=== PATIENT | female | born 1955 | race Caucasian/White ===

== ENCOUNTER 2017-08-10 13:20 | Emergency (ER) | payer OTHER ==
--- OUTSIDE RECORDS SUMMARY | 2017-08-10 13:22 | XMS REPORT | Clinical Summary ---
:1955 Author Organization [facility] Address [address] [place] [address] Care Team Providers Name Role Phone Asked, No Pcp Primary Care Provider Unavailable Allergies Active Allergy Reactions Severity Noted Date Comments Codeine 07/30/2016 Metoclopramide Hcl 09/23/2016 Current Medications Prescription Sig. Disp. Refills Start Date End Date Status lisinopril Take 40 mg by Active (PRINIVIL,ZESTRIL) 40 mouth. mg tablet metoprolol tartrate Take 100 mg by Active (LOPRESSOR) 100 mg mouth. tablet amLODIPine (NORVASC) Take 10 mg by Active 10 mg tablet mouth. LORAZepam (ATIVAN) 2 Take 2 mg by Active MG tablet mouth. ARIPiprazole Take 5 mg by Active (ABILIFY) 5 MG tablet mouth. sertraline (ZOLOFT) 200 mg every Active 25 MG tablet morning. triamterene-hydrochlo Take 1 tablet by Active rothiazid mouth daily. (MAXZIDE-25) 37.5-25 mg per tablet DESCOVY 200-25 mg 5 08/09/2016 Active tablet ISENTRESS 400 mg TK 1 T PO BID 3 08/07/2016 Active tablet esomeprazole (NexIUM) Take 40 mg by Active 40 MG capsule mouth 2 (two) times a day. clobetasol (TEMOVATE) Apply topically Active 0.05 % ointment 2 (two) times a day. ondansetron ODT Take 1 tablet (4 20 tablet 0 09/16/2016 10/06/2016 (ZOFRAN ODT) 4 MG mg total) by disintegrating tablet mouth every 8 (eight) hours as needed for nausea or vomiting for up to 20 days. 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 Encounters Date Type Specialty Care Team Description 11/03/2016 Office Visit Orthopedic Surgery Ora Ngo Orthopedic aftercare NEO Whyte (Primary Dx) 11/03/2016 Orders Only Orthopedic Surgery Mervat, Orthopedic aftercare ( Primary Dx); Alaina Osteoarthritis of left shoulder, unspecified osteoarthritis type 11/03/2016 Orders Only Orthopedic Surgery Ora Ngo Orthopedic ellencare NEO Whyte (Primary Dx) 10/28/2016 Orders Only Orthopedic Surgery Richard Grissom MD 10/19/2016 - Hospital Encounter Orthopedic Surgery [place], 10/21/2016 Austin Wilson MD 10/19/2016 Procedure Pass Orthopedic Surgery 10/19/2016 Surgery Orthopedic Surgery [place], REV. TOTAL SHOULDER Austin Wilson MD ARTHROPLASTY, REMOVAL OF HARDWARE 10/07/2016 Orders Only Orthopedic Surgery Twan Darling, Primary MA osteoarthritis of left shoulder (Primary Dx) 09/24/2016 Telephone Orthopedic Surgery Alaina Crowell 09/23/2016 [facility] TIMBO 09/16/2016 Orders Only Orthopedic Surgery Mervat, Morganarr 08/20/2016 Office Visit Orthopedic Surgery [place], Unstable reverse Austin Wilson MD total shoulder arthroplasty, subsequent encounter (Primary Dx) 08/19/2016 Documentation Orthopedic Surgery Ora Ngo PA-C 08/09/2016 Lab Lab Austin Bowles MD 08/09/2016 Hospital Encounter Radiology [place], Left shoulder pain, Austin Wilson MD unspecified chronicity 08/09/2016 Hospital Encounter Radiology [place] Chronic left shoulder Austin Wilson MD pain 08/09/2016 Hospital Encounter Radiology [place], Left shoulder painAustin MD unspecified chronicity 08/09/2016 Ancillary Orders Orthopedic Surgery [place] Left shoulder painAustin MD unspecified chronicity after 08/09/2016 Family History Medical History Relation Name Comments Hypertension Father Kidney disease Father Relation Name Status Comments Father Mother Social History Tobacco Use Types Packs/Day Years Used Date Current Every Day Smoker 0.5 Smokeless Tobacco: Never Used Tobacco Cessation: Ready to Quit: Yes Alcohol Use Drinks/Week oz/Week Comments Yes rare Sex Assigned at Date Recorded Not on file Last Filed Vital Signs Vital Sign Reading Time Taken Blood Pressure 135/81 10/21/2016 3:40 PM CDT Pulse 78 11/03/2016 2:58 PM CDT Temperature 37.3 C (99.1 F) 10/21/2016 3:40 PM CDT Respiratory Rate 18 10/21/2016 3:40 PM CDT Oxygen Saturation 93% 10/21/2016 3:40 PM CDT Inhaled Oxygen Concentration - - Weight 92.5 kg (204 lb) 10/19/2016 8:32 AM CDT Height 162.6 cm (5' 4") 10/19/2016 8:32 AM CDT Body Mass Index 35.02 10/19/2016 8:32 AM CDT Plan of Treatment Health Maintenance Due Date Last Done Comments PAP SMEAR 01/22/1977 COLONOSCOPY 01/22/2006 MAMMOGRAM 01/22/2006 ZOSTER VACCINE 2016 INFLUENZA VACCINE 12/21/2016 Implants Implanted Type Area Centrifugal Casting Machine Tender Device Expiration Model / Identifier Date Serial / Lot Versa-Dial/Comp Ti Std Taper Used W/25mm Glenoid Basplate - [id number] N/ A: N/A [employer] 01/22/2026 [id number] / Implanted: Qty: 1 on 10/19/2016 by Austin Bowles MD IMPLANT / DEVICES [id number] 41mm Comprehensive Reverse Shoulder Glenosphere Ba - [id number] N/A: N/A [employer] 11/21/2023 [id number] / Implanted: Qty: 1 on 10/19/2016 by Austin Bowles MD IMPLANT / DEVICES [id number] Arcom Xl 44-41 Std +3 Humeral Brg - [id number] [id number] Left: [employer] 07/20 XL [id number] / Implanted: Qty: 1 on 10/19/2016 by Austin Bowles MD IMPLANT Shoulder / DEVICES [id number] Humeral Tray With Locking Ring +5 Left: [employer] 03/31/2026 [id number] / Implanted: Qty: 1 on 10/19/2016 by Austin Bowles MD Shoulder / [id number] Procedures Procedure Name Priority Date/Time Associated Diagnosis Comments MA AN ELECTIVE Routine 10/19/2016 11:11 AM ENDOTRACHEAL AIRWAY CDT Procedure Note - Beth Stevenson CRNA - 10/19/2016 11:09 AM CDT Airway Performed by: BETH STEVENSON Authorized by: KENNY FAY Location: OR Urgency: Elective Difficult Airway: No Preoxygenated with 100% O2: Yes C-spine Precautions Maintained Throughout: Yes Mask Ventilation: Easy mask Final Airway Type: Endotracheal airway Final Endotracheal Airway: ETT Cuffed: Yes Technique Used: Direct laryngoscopy Insertion Site: Oral Blade Type: Pryor Laryngoscope Blade/Videolaryngoscope Blade Size: 2 ETT Size (mm): 7.0 Cuff at minimum occlusion pressure: Yes Measured from: Lips ETT to Lips (cm): 22 Placement Verified by: CO2 detection, direct visualization and equal breath sounds Laryngoscopic view: Grade I - full view of glottis Rapid Sequence Induction (RSI): No Modified RSI: No Number of Attempts at Approach: 1 Lips, oropharynx in original condition REV. TOTAL SHOULDER 10/19/2016 9:45 AM CDT SHOULDER ARTHRITIS ARTHROPLASTY, REMOVAL OF M19.012, RETAINED HARDWARE HARDWARE T84.60XA Special Needs EST 2HRS, INTERSCALENE BLOCK WITH PAIN PUMP, MODIFIED BEACH CHAIR POSITION, SHOULDER ULTRASLING/CRYOCUFF, ARTHREX UNIVERSE II after 08/09/2016 Results XR Shoulder 2+ Vw Left (11/03/2016 3:02 PM) Specimen Performing Laboratory [address] [address] Narrative Two views (true AP, axillary views) of the left shoulder are obtained and reviewed today.There is no evidence of dislocation , fracture or other complication. The prosthesis appears to be in good position. Estimated GFR (10/21/2016 4:00 AM)Only the most recent of3 resultswithin the time period is included. Component Value Ref Range GFR Non Af Amer 46 (A) mL/min/1.73 m2 GFR Af Amer 55 (A) mL/min/1.73 m2 Comment: Chronic kidney disease: <60 mL/min/1.73m2 Kidney failure: <15 mL/min/1.73m2 The estimated GFR is calculated from the IDMS-traceable Modification of Diet in Renal Disease Equation. The accuracy of the calculation is poor when the creatinine is normal. Calculated values >90 mL/min/1.73m2 are not reported. This equation has not been validated in children (<18 years), women, the elderly (>70 years), or ethnic groups other than Caucasians and Americans. Specimen Performing Laboratory Plasma specimen [facility] DEPARTMENT OF PATHOLOGY AND [facility] [address] [place] [address] CBC with platelet and differential (10/21/2016 4:00 AM)Only the most recent of3 resultswithin the time period is included. Component Value Ref Range WBC 9.35 4.50 - 11.00 k/uL RBC 3.87 (L) 4.20 - 5.50 m/uL HGB 9.9 (L) 12.0 - 16.0 g/dL HCT 34.1 (L) 37.0 - 47.0 % MCV 88.1 82.0 - 100.0 fL MCH 25.6 (L) 27.0 - 34.0 pg MCHC 29.0 (L) 31.0 - 37.0 g/dL RDW - SD 53.4 37.0 - 55.0 fL MPV 9.9 8.8 - 13.2 fL Platelet count 166 150 - 400 k/uL Nucleated RBC 0.00 /100 WBC Neutrophils 82.2 (H) 39.0 - 69.0 % Lymphocytes 9.4 (L) 25.0 - 45.0 % Monocytes 6.8 0.0 - 10.0 % Eosinophils 0.9 0.0 - 5.0 % Basophils 0.2 0.0 - 1.0 % Immature granulocytes 0.5Comment: "Immature granulocytes" 0.0 - 1.0 % (promyelocytes, myelocytes, metamyelocytes) Specimen Performing Laboratory Blood [facility] DEPARTMENT OF PATHOLOGY AND [facility] [address] [place] [address] Magnesium level (10/21/2016 4:00 AM)Only the most recent of2 resultswithin the time period is included. Component Value Ref Range Magnesium 1.9 1.6 - 2.4 mg/dL Specimen Performing Laboratory Plasma specimen [facility] DEPARTMENT OF PATHOLOGY AND [facility] [address] [place] [address] Basic metabolic panel (10/21/2016 4:00 AM) Component Value Ref Range Sodium 134 (L) 135 - 148 mEq/L Potassium 3.9 3.5 - 5.0 mEq/L Chloride 99 98 - 112 mEq/L CO2 19 (L) 24 - 31 mEq/L Anion gap 16 (H) 7 - 15 mEq/L Comment: Starting from August , anion gap calculation no longer incorporates potassium. Please note the change. BUN 28 (H) 8 - 23 mg/dL Creatinine 1.2 (H) 0.5 - 0.9 mg/dL Glucose 96 65 - 99 mg/dL Calcium 7.9 (L) 8.8 - 10.2 mg/dL Specimen Performing Laboratory Plasma specimen [facility] DEPARTMENT OF PATHOLOGY AND [facility] [address] [place] [address] B natriuretic peptide (10/20/2016 5:39 AM) Component Value Ref Range BNP 48 0 - 100 pg/mL Specimen Performing Laboratory Blood [facility] PATHOLOGY AND [address] [address] Phosphorus level (10/20/2016 4:00 AM) Component Value Ref Range Phosphorus 4.2 2.4 - 4.5 mg/dL Specimen Performing Laboratory Plasma specimen [facility] DEPARTMENT OF PATHOLOGY AND [address] [address] Comprehensive metabolic panel (10/20/2016 4:00 AM)Only the most recent of2 resultswithin the time period is included. Component Value Ref Range Sodium 134 (L) 135 - 148 mEq/L Potassium 4.2 3.5 - 5.0 mEq/L Chloride 98 98 - 112 mEq/L CO2 22 (L) 24 - 31 mEq/L Anion gap 14 7 - 15 mEq/L Comment: Starting from August , anion gap calculation no longer incorporates potassium. Please note the change. BUN 24 (H) 8 - 23 mg/dL Creatinine 1.1 (H) 0.5 - 0.9 mg/dL Glucose 97 65 - 99 mg/dL Calcium 8.2 (L) 8.8 - 10.2 mg/dL Protein 6.4 6.3 - 8.3 g/dL Comment: 4.6-7.0 g/dL 1 week 4.4-7.6 g/dL 7 months-1year5.1-7.3 g/dL 1-2 years5.6-7.5 g/dL >3 years6.0-8.0 g/dL 18-150 6.3-8.3 g/dL Albumin 2.9 (L) 3.5 - 5.0 g/dL A/G ratio 0.8 0.7 - 3.8 Alkaline phosphatase 78 35 - 104 U/L AST 25 10 - 35 U/L ALT 22 5 - 50 U/L Total bilirubin 0.3 0.0 - 1.2 mg/dL Specimen Performing Laboratory Plasma specimen [facility] DEPARTMENT OF PATHOLOGY AND GENOMIC [address] [address] Surgical pathology request (10/19/2016 12:58 PM) Component Value Ref Range Surgical pathology report See link below for PDF Lab Report Specimen Performing Laboratory [facility] DEPARTMENT [place]OLOGY [place] [address] Fungus smear (10/19/2016 12:07 PM)Only the most recent of3 resultswithin the time period is included. Component Value Ref Range Fungus smear No fungi observed. Comment: Specimen Information Specimen Source: Tissue Specimen Site: Shoulder, left Specimen Performing Laboratory Tissue [facility] PATHOLOGY [address] [address] AFB culture (10/19/2016 12:07 PM)Only the most recent of4 resultswithin the time period is included. Component Value Ref Range AFB culture isolate No growth after 6 weeks of incubation. Comment: Specimen Information Specimen Source: Tissue Specimen Site: Shoulder, left Specimen Performing Laboratory Tissue - [facility] [place] [address] Aerobic culture (10/19/2016 12:07 PM)Only the most recent of3 resultswithin the time period is included. Component Value Ref Range Aerobic culture isolate No growth after 3 days. Comment: Specimen Information Specimen Source: Tissue Specimen Site: Shoulder, left Specimen Performing Laboratory Tissue - [facility] OF PATHOLOGY [address] [address] Gram stain (10/19/2016 12:07 PM)Only the most recent of4 resultswithin the time period is included. Component Value Ref Range Gram stain isolate Rare WBC's No organisms seen Comment: Specimen Information Specimen Source: Tissue Specimen Site: Shoulder, left Specimen Performing Laboratory Tissue - [facility] PATHOLOGY [address] [address] AFB stain (10/19/2016 12:07 PM)Only the most recent of4 resultswithin the time period is included. Component Value Ref Range AFB stain No acid fast bacilli (AFB) seen. Comment: Specimen Information Specimen Source: Tissue Specimen Site: Shoulder, left Specimen Performing Laboratory Tissue - [facility] PATHOLOGY [address] [address] Fungus culture (10/19/2016 12:07 PM)Only the most recent of3 resultswithin the time period is included. Component Value Ref Range Fungus culture isolate No growth after 4 weeks of incubation. Comment: Specimen Information Specimen Source: Tissue Specimen Site: Shoulder, left Specimen Performing Laboratory Tissue - [facility] OF PATHOLOGY [address] [address] Anaerobic culture (10/19/2016 12:07 PM)Only the most recent of5 resultswithin the time period is included. Component Value Ref Range Anaerobic culture isolate No anaerobic organisms isolated. Comment: Specimen Information Specimen Source: Tissue Specimen Site: Shoulder, left Specimen Performing Laboratory Tissue - [facility] PATHOLOGY [address] [address] Type and screen (10/19/2016 8:43 AM) Component Value Ref Range ABO grouping A Rh type POS Antibody screen (gel) NEG Specimen Performing Laboratory Blood [facility] DEPARTMENT OF PATHOLOGY [address] [address] Joint fluid culture (08/09/2016 3:38 PM)Only the most recent of2 resultswithin the time period is included. Component Value Ref Range Joint fluid culture isolate No growth after 4 days. Comment: Specimen Information Specimen Source: Joint Fluid Specimen Site: ShoulderLeft Specimen Performing Laboratory Joint fluid [facility] DEPARTMENT OF PATHOLOGY AND [address] [address] Sedimentation rate (08/09/2016 10:25 AM) Component Value Ref Range Sedimentation rate 27 0 - 40 mm/hr Specimen Performing Laboratory Blood [facility] Narrative Performed at: - [id number] Hand Stripper: Colten Cope MD, Phone:[phone] Synovial fluid, cell count (08/09/2016 10:25 AM) Component Value Ref Range Color, fluid Note:Comment: Bloody. Yellow Clarity, fluid Turbid (A) Clear Nucleated cells, fluid 4,495 (H) 0 - 200 cells/uL RBC, fluid Note:Comment: Too numerous to count Not Estab. /uL Polys, fluid 51 Not Estab. % Lymphocytes, fluid 39 Not Estab. % Macrophages, fluid 0 Not Estab. % Eosinophils, fluid 4 Not Estab. % Synovial lining cells, fluid 6 Not Estab. % Comment Note:Comment: Cellular Degeneration Noted. Specimen Performing Laboratory Aspirate [facility] Narrative Performed at: [id number] Hand Stripper: Colten Cope MD, Phone:[phone] C-reactive protein (08/09/2016 10:25 AM) Component Value Ref Range CRP 1.9 0.0 - 4.9 mg/L Specimen Performing Laboratory Blood [facility] Narrative Performed at: [id number] Hand Stripper: Colten Cope MD, Phone:[phone] CT Upper Extremity Wo Left (08/09/2016 10:21 AM) Specimen Performing Laboratory [facility] [address] [place] [address] UPPER EXTREMITY WO LEFT CLINICAL INDICATION:ABNORMAL XRAYARM recurrent dislocation Pain in left shoulder TECHNIQUE:Multidetector CT of the left shoulder was performed following the intra-articular injection of iodinated contrast material with automated exposure control and/or iterative reconstruction techniques to radiation dose. Please refer to fluoroscopic procedure for details of the injection. COMPARISON:None FINDINGS: HARDWARE: Bilateral shoulder replacements are present, the left the focus of this exam. The glenoid component of the left prosthesis is well seated. There is no abnormal loosening about the anchoring screws. No hardware complication. The humeral component also appears well seated and there is no abnormal contrast or lucency identified about the humeral stem. There is no periprosthetic fracture. There is a minimal amount of contrast seen beneath the proximal plate of the humeral component suggesting a small degree of osteolysis and/or incomplete fit at time of placement, a focus of contrast seen medially about 2 x 5 mm, minimal contrast less than 1 mm in thickness noted along the lateral margin (coronal image 56 for example). BONES:No fracture or osseous lesion is visualized. ALIGNMENT:Maintained JOINT(S):There is prominent synovitis of the pseudoarthrosis with nodularity of the lateral margin. No distinct intra-articular body is visualized. SOFT TISSUES: Limited evaluation given streak artifact about the shoulder, no focal collection, mass or hematoma visualized. IMPRESSION: Left shoulder prosthesis with minimal contrast present at the proximal humeral junction as detailed. Please see report. Thank you for allowing us to participate in the care of your patient. [facility]-[id number] Procedure Note Interface, Radiology Results Incoming - 08/09/2016 10:[address] UPPER EXTREMITY WO LEFT CLINICAL INDICATION: ABNORMAL XRAY ARM recurrent dislocation Pain in left shoulder TECHNIQUE: Multidetector CT of the left shoulder was performed following the intra-articular injection of iodinated contrast material with automated exposure control and/or iterative reconstruction techniques to radiation dose. Please refer to fluoroscopic procedure for details of the injection. COMPARISON: None FINDINGS: HARDWARE: Bilateral shoulder replacements are present, the left the focus of this exam. The glenoid component of the left prosthesis is well seated. There is no abnormal loosening about the anchoring screws. No hardware complication. The humeral component also appears well seated and there is no abnormal contrast or lucency identified about the humeral stem. There is no periprosthetic fracture. There is a minimal amount of contrast seen beneath the proximal plate of the humeral component suggesting a small degree of osteolysis and/or incomplete fit at time of placement, a focus of contrast seen medially about 2 x 5 mm, minimal contrast less than 1 mm in thickness noted along the lateral margin (coronal image 56 for example). BONES: No fracture or osseous lesion is visualized. ALIGNMENT: Maintained JOINT(S): There is prominent synovitis of the pseudoarthrosis with nodularity of the lateral margin. No distinct intra-articular body is visualized. SOFT TISSUES: Limited evaluation given streak artifact about the shoulder, no focal collection, mass or hematoma visualized. IMPRESSION: Left shoulder prosthesis with minimal contrast present at the proximal humeral junction as detailed. Please see report. Thank you for allowing us to participate in the care of your patient. [facility]-[id number] [place] Arthrogram Shoulder Left (08/09/2016 10:14 AM) Specimen Performing Laboratory [facility] [address] [place] [address] Narrative EXAMINATION:FL ARTHROGRAM SHOULDER LEFT CLINICAL HISTORY:SHOULDER PAINPRIOR ARTHROPLASTYROTATOR CUFF TEAR SUSPECTEDXRAY NONDIAGNOSTIC Pain in left shoulder COMPARISON:None. FLUOROSCOPY TIME: 0.3 minutes, three images. Dose: 4.92 mGy Procedure: The procedure was discussed with the patient and they agreed to proceed. The skin overlying the left shoulderwas prepped and draped in the usual sterile fashion. After local administration of 1% buffered lidocaine, a 22-gauge needle was inserted into the joint and approximately 8 cc of aditi-colored non-grossly purulent joint fluid was aspirated. The fluid was sent for the requested studies. Subsequently, 12 cc of iodinated contrast was injected. Post-injection images were obtained and archived. The patient tolerated the procedure without difficulty and no complications were encountered. The patient was discharged to CT for subsequent CT arthrogram study. IMPRESSION: 1.Uncomplicated fluoroscopy guided left shoulder aspiration. 2.Contrast fills the subacromial subdeltoid bursa likely related to rotator cuff tear. See CT arthrogram for further details. [facility]-[id number] Procedure Note [facility], Radiology Results Incoming - 08/09/2016 10:53 AM CDT EXAMINATION: FL ARTHROGRAM SHOULDER LEFT CLINICAL HISTORY: SHOULDER PAIN PRIOR ARTHROPLASTY ROTATOR CUFF TEAR SUSPECTED XRAY NONDIAGNOSTIC Pain in left shoulder COMPARISON: None. FLUOROSCOPY TIME: 0.3 minutes, three images. Dose: 4.92 mGy Procedure: The procedure was discussed with the patient and they agreed to proceed. The skin overlying the left shoulder was prepped and draped in the usual sterile fashion. After local administration of 1% buffered lidocaine, a 22-gauge needle was inserted into the joint and approximately 8 cc of aditi-colored non-grossly purulent joint fluid was aspirated. The fluid was sent for the requested studies. Subsequently, 12 cc of iodinated contrast was injected. Post-injection images were obtained and archived. The patient tolerated the procedure without difficulty and no complications were encountered. The patient was discharged to CT for subsequent CT arthrogram study. IMPRESSION: 1.Uncomplicated fluoroscopy guided left shoulder aspiration. 2.Contrast fills the subacromial subdeltoid bursa likely related to rotator cuff tear. See CT arthrogram for further details. [facility]-[id number] Crystal analysis (08/09/2016 9:29 AM) Component Value Ref Range Crystal analysis specimen type Joint Monosodium urate PresentComment: Extracellular present None seen CPPD crystals None seen None seen Specimen Performing Laboratory Fluid [facility] DEPARTMENT OF PATHOLOGY AND GENOMIC MEDICINE [address] [place] [address], [place] [address] Cell count and differential, body fluid (08/09/2016 9:29 AM) Component Value Ref Range Misc fluid type left shoulder aspiration Color, fluid Bacon Appearance, fluid Hazy RBC, fluid 88,000 /CMM Nucleated cells, fluid 1,389 /CMM Fluid mononuclear cell See Diff Neutrophils, fluid 5 % Lymphocytes, fluid 67 % Macrophages, fluid 28 % Specimen Performing Laboratory Fluid [facility] DEPARTMENT OF PATHOLOGY AND GENOMIC MEDICINE [address] [place] [address] after 08/09/2016 Insurance Payer Benefit Plan / Group Subscriber ID Type Phone Address [facility] MEDICARE [facility] DUAL COMPLETE MCR xxxxxxxxx [facility] MEDICAID [facility] COMM STAR+ BRIA xxxxxxxxx O
--- NOTE | 2017-08-10 14:26 | RAD REPORT ---
EXAM DESCRIPTION: RAD - Chest Single View - 08/10/2017 2:21 pm CLINICAL HISTORY: Chest pain. COMPARISON: 07/23/2017 FINDINGS: Portable technique limits examination quality. The lungs are grossly clear. The heart is upper limit normal in size. Bilateral shoulder arthroplasti es noted. IMPRESSION: No acute intrathoracic process suspected.
--- NOTE | 2017-08-10 15:12 | EKG ---
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
[2017-08-10 15:30] LABS: Absolute Lymphocytes (CBC) 1.3 K/uL (0.7-4.9); Absolute Monocytes 0.5 K/uL (0.1-1.3); Absolute Neutrophil 4.6 K/uL (1.8-8.0); Basophils % 0.8 % (0-1.3); Eosinophils % 1.1 % (0-4.4); Hematocrit 34.6 % (36.0-45.0); Lymphocytes % 19.5 % (15.3-44.8); MCH 22.7 pg (27.0-35.0); MCV 72.5 fL (80-100); MPV 7.8 fL (7.6-11.3); Monocytes % 7.1 % (3.3-12.3); RBC Red Blood Cell Count 4.78 M/uL (3.86-4.86)
[2017-08-10 15:43] LABS: Protime INR 0.92
[2017-08-10] MEDS ORDERED: ONDANSETRON 4 MG/2 ML VIAL ONE ×2 (16:22→17:15)
[2017-08-10] MEDS ORDERED: MORPHINE 4 MG/ML SYR ONE ×2 (16:22→17:15)
[2017-08-10 16:24] LABS: Bicarbonate 28 mEq/L (21-31); Glucose Level 131 mg/dL (65-120); Potassium 3.7 mEq/L (3.6-5.0); Sodium Level 136 mEq/L (135-145)
[2017-08-10 16:30] LABS: ALT/SGPT 41 IU/L (10-60); AST/SGOT 55 IU/L (10-42); Albumin 3.8 g/dL (3.2-5.5); Alkaline Phosphatase 84 IU/L (42-121); BUN Blood Urea Nitrogen 25 mg/dL (6-20); Bilirubin Direct < 0.1 mg/dL (0-0.2); Bilirubin Total 0.6 mg/dL (0.3-1.2); Creatine Phosphokinase 35 IU/L (22-269); Glomerular Filtration Rate 69 mL/min (=/>90); Protein, Total 7.5 g/dL (6.0-8.3)
[2017-08-10 16:33] LABS: CKMB Creatine Kinase MB 1.2 ng/ml (0.3-4.0)
[2017-08-10] MEDS ORDERED: NA CHLORIDE 0.9% 1,000 ML ONE (16:42)
[2017-08-10 17:09] LABS: Urine Blood NEGATIVE (NEG); Urine Glucose NEGATIVE (NEG); Urine Protein NEGATIVE (NEG); Urine pH 5.5 (5.0-7.0)
--- NOTE | 2017-08-10 17:41 | EDPHYS ---
Physician Documentation [facility] Name: Marjan Fleming Age: 62 yrs Sex: Female : 1955 Arrival Date: 08/10/2017 Time: 13:23 Bed 25 Private MD: Lele Rahman H ED Physician Joey Jung HPI: 08/10 13:59 This 62 yrs old Female presents to ER via Ambulatory with complaints of Chest kav Pain. 14:21 Onset: The symptoms/episode began/occurred acutely, 3 day(s) ago. Associated signs and kav symptoms: Pertinent positives: chest pain, headache. Modifying factors: The patient symptoms are alleviated by nothing, the patient symptoms are aggravated by nothing. The patient has experienced a previous episode, approximately 2 weeks ago, and the symptoms today are exactly the same. The patient has been recently seen by a physician: The patient has been recently been admitted at [facility]. chief c/o of centrally located, non-radiating chest pain that woke her from sleep. associated symptoms include nausea and h/a. reports being admitted to this hospital approx 2 weeks ago for similar symptoms. card w/u includes "...seen by dr. valles/card approx 1 year ago when the had similar symptoms". pmhx: htn,hiv, bipolar, anxiety, gerd. patient reports sleeping upright with 3 pillows and is unable to lie flat. she reports sob with activity. ble with no swelling.. 17:41 The patient or guardian reports chest pain that is located primarily in the substernal kav area, xyphoid area and left breast. Onset: acutely. The pain does not radiate. Associated signs and symptoms: Pertinent positives: nausea. The chest pain is described as a pressure. Duration: The patient or guardian reports a single episode, that is now resolved. Modifying factors: The symptoms are alleviated by nothing. the symptoms are aggravated by movement. Severity of pain: At its worst the pain was moderate just prior to arrival. Historical: - Allergies: 13:38 Bactrim DS; hj 13:38 Codeine; hj 13:38 metoclopramide HCl; hj 13:38 Stadol; hj - Home Meds: 13:38 Ativan 2 mg Oral tab 2 tabs 2 times per day for Anxiety [Active]; Descovy 200-25 mg hj Oral tab 1 tab once daily [Active]; hydralazine 25 mg Oral tab 1 tab 2 times per day for Hypertension [Active]; issentress BID twice a day [Active]; lisinopril 40 mg Oral tab 1 tab twice a day for Hypertension [Active]; Nexium 40 mg Oral cpDR 1 cap once daily [Active]; Norvasc 10 mg Oral tab 1 tab once daily for Hypertension [Active]; proair as needed [Active]; sertraline 100 mg Oral tab 2 tabs once daily [Active]; Spiriva daily [Active]; Triamterene-Hydrochlorothiazid Oral 1 cap once daily [Active]; Toprol XL 100 mg Oral Tb24 1 tab twice a day for Hypertension [Active]; - PMHx: 13:38 Anxiety; Bipolar disorder; Chronic pain; COPD; esophageal varices; Hepatitis; HIV; hj Hypertension; Migraines; Panic Attacks; - PSHx: 13:38 Cholecystectomy; Appendectomy; shoulder; hj - Immunization history:: Adult Immunizations up to date. - Social history:: Smoking status: Patient/guardian denies using tobacco, never smoked. - Hospitalizations: : The patient was recently seen at [facility], and discharged 2 week(s) ago, for similar complaints. ROS: 14:25 Constitutional: Negative for fever, chills, and weight loss, Eyes: Negative for injury, kav pain, redness, and discharge, ENT: Negative for injury, pain, and discharge, Neck: Negative for injury, pain, and swelling, Respiratory: Negative for shortness of breath, cough, wheezing, and pleuritic chest pain, Abdomen/GI: Negative for abdominal pain, nausea, vomiting, diarrhea, and constipation, Back: Negative for injury and pain, : Negative for injury, bleeding, discharge, and swelling, MS/Extremity: Negative for injury and deformity, Skin: Negative for injury, rash, and discoloration, Neuro: Negative for headache, weakness, numbness, tingling, and seizure, Psych: Negative for depression, anxiety, suicide ideation, homicidal ideation, and hallucinations, Allergy/Immunology: Negative for hives, rash, and allergies, Endocrine: Negative for neck swelling, polydipsia, polyuria, polyphagia, and marked weight changes, Hematologic/Lymphatic: Negative for swollen nodes, abnormal bleeding, and unusual bruising. 14:25 Cardiovascular: Positive for chest pain, with movement, of the xyphoid area and left breast, reproducible with palpation, Negative for edema, palpitations. Exam: 14:25 Constitutional: This is a well developed, well nourished patient who is awake, alert, kav and in no acute distress. Head/Face: Normocephalic, atraumatic. Eyes: Pupils equal round and reactive to light, extra-ocular motions intact. Lids and lashes normal. Conjunctiva and sclera are non-icteric and not injected. Cornea within normal limits. Periorbital areas with no swelling, redness, or edema. ENT: Nares patent. No nasal discharge, no septal abnormalities noted. Tympanic membranes are normal and external auditory canals are clear. Oropharynx with no redness, swelling, or masses, exudates, or evidence of obstruction, uvula midline. Mucous membranes moist. Neck: Trachea midline, no thyromegaly or masses palpated, and no cervical lymphadenopathy. Supple, full range of motion without nuchal rigidity, or vertebral point tenderness. No Meningismus. Chest/axilla: Normal chest wall appearance and motion. Nontender with no deformity. No lesions are appreciated. Respiratory: Lungs have equal breath sounds bilaterally, clear to auscultation and percussion. No rales, rhonchi or wheezes noted. No increased work of breathing, no retractions or nasal flaring. Abdomen/GI: Soft, non-tender, with normal bowel sounds. No distension or tympany. No guarding or rebound. No evidence of tenderness throughout. Back: No spinal tenderness. No costovertebral tenderness. Full range of motion. Skin: Warm, dry with normal turgor. Normal color with no rashes, no lesions, and no evidence of cellulitis. MS/ Extremity: Pulses equal, no cyanosis. Neurovascular intact. Full, normal range of motion. Neuro: Awake and alert, GCS 15, oriented to person, place, time, and situation. Cranial nerves II-XII grossly intact. Motor strength 5/5 in all extremities. Sensory grossly intact. Cerebellar exam normal. Normal gait. Psych: Awake, alert, with orientation to person, place and time. Behavior, mood, and affect are within normal limits. 14:25 Cardiovascular: Rate: normal, actual rate is 65 bpm, Rhythm: regular, Pulses: Pulses are 2+ in . Heart sounds: S1, S2, Edema: is not appreciated, JVD: is not appreciated. 14:25 ECG was reviewed by the Attending Physician. Vital Signs: 13:39 BP 130 / 87; Pulse 71; Resp 18; Temp 98.4(O); Pulse Ox 97% on R/A; Weight 95.25 kg; hj Height 5 ft. 4 in. (162.56 cm); Pain 9/10; 14:00 BP 118 / 62; Pulse 66; Resp 16; Pulse Ox 100% on R/A; tl3 18:18 BP 139 / 93; Pulse 57; Resp 18; Pulse Ox 97% ; tl3 13:39 Body Mass Index 36.04 (95.25 kg, 162.56 cm) hj MDM: 13:49 Patient medically screened. ka 17:41 Data reviewed: vital signs, nurses notes, lab test result(s), radiologic studies. [facility] 08/10 14:01 Order name: Basic Metabolic Panel [facility] 08/10 14:01 Order name: BNP [facility] 08/10 14:01 Order name: CBC with Diff 08/10 14:01 Order name: Ckmb [facility] 08/10 14:01 Order name: CPK [facility] 08/10 14:01 Order name: LFT's 08/10 14:01 Order name: Magnesium [facility] 08/10 14:01 Order name: PT-INR 08/10 14:01 Order name: Ptt, Activated [facility] 08/10 14:01 Order name: Troponin (emerg Dept Use Only) [facility] 08/10 15:34 Order name: CBC with Automated Diff; Complete Time: 17:25 EDMS 08/10 17:25 Interpretation: Normal except: HGB 10.9; HCT 34.6; MCV 72.5; MCH 22.7; MCHC 31.3; RDW kav 18.5. 08/10 15:54 Order name: Protime (+INR); Complete Time: 17:25 EDMS 08/10 17:26 Interpretation: Within normal limits. [facility] 08/10 15:54 Order name: PTT, Activated Partial Thromb; Complete Time: 17:25 EDMS 08/10 17:25 Interpretation: Abnormal: PTT 20.0. [facility] 08/10 16:24 Order name: Basic Metabolic Panel; Complete Time: 17:25 EDMS 08/10 17:25 Interpretation: Normal except: CL 100; GLUC 131; BUN 25; GFR 69. [facility] 08/10 14:01 Order name: XRAY Chest (1 view) 08/10 14:01 Order name: EKG; Complete Time: 14:02 [facility] 08/10 14:27 Order name: RAD; Complete Time: 17:25 EDMS 08/10 17:26 Interpretation: No acute disease. 08/10 16:30 Order name: Troponin (Emerg Dept Use Only); Complete Time: 17:25 EDMS 08/10 17:26 Interpretation: Within normal limits. 08/10 16:31 Order name: Liver (Hepatic) Function; Complete Time: 17:25 EDMS 08/10 17:26 Interpretation: Normal except: SGOT 55; GLOB 3.7; A/G 1.0. 08/10 16:31 Order name: Creatine Phosphokinase; Complete Time: 17:25 EDMS 08/10 17:26 Interpretation: Within normal limits. 08/10 16:31 Order name: Magnesium; Complete Time: 17:24 EDMS 08/10 17:24 Interpretation: Within normal limits. 08/10 16:33 Order name: BNP B-Type Natriuretic Peptide; Complete Time: 17:24 EDMS 08/10 17:24 Interpretation: Within normal limits. 08/10 16:34 Order name: CKMB Creatine Kinase MB; Complete Time: 17:25 EDMS 08/10 17:25 Interpretation: Within normal limits. [facility] 08/10 16:57 Order name: Urine Dipstick--Ancillary (enter results) [place] 08/10 17:10 Order name: Urine Dipstick-Ancillary; Complete Time: 17:24 EDMS 08/10 14:01 Order name: Cardiac monitoring; Complete Time: 16:18 [facility] 08/10 14:01 Order name: EKG - Nurse/Tech; Complete Time: 16:18 [facility] 08/10 14:01 Order name: IV Saline Lock; Complete Time: 16:18 [facility] 08/10 14:01 Order name: Labs collected and sent; Complete Time: 16:18 [facility] 08/10 14:01 Order name: O2 Per Protocol; Complete Time: 16:18 [facility] 08/10 14:01 Order name: O2 Sat Monitoring; Complete Time: 16:16 kav 08/10 14:01 Order name: Urine Dipstick-Ancillary (obtain specimen); Complete Time: 16:16 kav EC:25 Rate is 65 beats/min. Rhythm is regular. QRS [place] is Normal. kav Administered Medications: 14:31 CANCELLED (md): TORadol 30 mg IVP once kav 16:19 Not Given (medicine not available): Dilaudid 0.5 mg IVP once tl3 16:20 Drug: morphine 4 mg Route: IVP; Infused Over: 3 mins; Site: left upper arm; tl3 16:21 Drug: NS 0.9% 1000 ml Route: IV; Rate: 125 ml/hr; Site: left upper arm; tl3 16:21 Drug: Zofran 4 mg Route: IVP; Site: left upper arm; tl3 Disposition: 08/11 07:19 Co-signature as Attending Physician, Joey Jung MD I agree with the assessment and kdr plan of care. Disposition: 08/10/17 17:40 Discharged to Home. Impression: Nausea, Dehydration, Chest pain, unspecified. - Condition is Stable. - Discharge Instructions: Nonspecific Chest Pain, Chest Wall Pain, Nausea and Vomiting, Dehydration, Adult, [id number], Rehydration, Adult. - Prescriptions for Zofran 4 mg Oral Tablet - take 1 tablet by ORAL route every 12 hours As needed; 20 tablet. - Medication Reconciliation Form, Thank You Letter, Antibiotic Education, Prescription Opioid Use form. - Follow up: Lele Rahman DO; When: 1 - 2 days; Reason: Recheck today's complaints, Continuance of care, Re-evaluation by your physician. Follow up: Per Crane MD; When: 1 - 2 days; Reason: Recheck today's complaints, Continuance of care, Re-evaluation by your physician. - Problem is new. - Symptoms have improved. Signatures: Dispatcher [employer] EDMS Joey Jung MD MD kdr Vern, Katherine, DEPUTY ASSESSOR DEPUTY ASSESSOR Jeremy Mann RN RN Reba Hunt RN RN tl3 Corrections: (The following items were deleted from the chart) 08/10 14:31 14:17 TORadol 30 mg IVP once ordered. kav kav 17:25 17:24 Within normal limits. kav kav
--- NOTE | 2017-08-10 17:41 | ER ---
Nurse's Notes [facility] Name: Marjan Fleming Age: 62 yrs Sex: Female : 1955 Arrival Date: 08/10/2017 Time: 13:23 Bed 25 Private MD: Lele Rahman H Diagnosis: Nausea;Dehydration;Chest pain, unspecified Presentation: 08/10 13:36 Presenting complaint: Patient states: i am having chest pain for 3 days now, its like hj heavy, pressure, stabbing pain; non radiating pain, back of neck hurting; reports SOB; denies fever, reports nausea;. Transition of care: patient was not received from another setting of care. Onset of symptoms was August 10, 2017. Care prior to arrival: None. 13:36 Method Of Arrival: Ambulatory hj 13:36 Acuity: BLAYNE 3 hj Triage Assessment: 13:38 General: Appears in no apparent distress. uncomfortable, Behavior is calm, cooperative, hj appropriate for age. Pain: Complains of pain in chest. Cardiovascular: Capillary refill < 3 seconds Patient's skin is warm and dry. Historical: - Allergies: 13:38 Bactrim DS; hj 13:38 Codeine; hj 13:38 metoclopramide HCl; hj 13:38 Stadol; hj - Home Meds: 13:38 Ativan 2 mg Oral tab 2 tabs 2 times per day for Anxiety [Active]; Descovy 200-25 mg hj Oral tab 1 tab once daily [Active]; hydralazine 25 mg Oral tab 1 tab 2 times per day for Hypertension [Active]; issentress BID twice a day [Active]; lisinopril 40 mg Oral tab 1 tab twice a day for Hypertension [Active]; Nexium 40 mg Oral cpDR 1 cap once daily [Active]; Norvasc 10 mg Oral tab 1 tab once daily for Hypertension [Active]; proair as needed [Active]; sertraline 100 mg Oral tab 2 tabs once daily [Active]; Spiriva daily [Active]; Triamterene-Hydrochlorothiazid Oral 1 cap once daily [Active]; Toprol XL 100 mg Oral Tb24 1 tab twice a day for Hypertension [Active]; - PMHx: 13:38 Anxiety; Bipolar disorder; Chronic pain; COPD; esophageal varices; Hepatitis; HIV; hj Hypertension; Migraines; Panic Attacks; - PSHx: 13:38 Cholecystectomy; Appendectomy; shoulder; hj - Immunization history:: Adult Immunizations up to date. - Social history:: Smoking status: Patient/guardian denies using tobacco, never smoked. - Hospitalizations: : The patient was recently seen at [facility], and discharged 2 week(s) ago, for similar complaints. Screenin:00 Abuse screen: Denies threats or abuse. Nutritional screening: No deficits noted. tl3 Tuberculosis screening: No symptoms or risk factors identified. Fall Risk None identified. Assessment: 13:39 Pain: Pain does not radiate. Pain began 2-3 days ago. hj 14:00 Reassessment: pt c/o pain to chest for three days, taking Pepcid at home did not tl3 relieve symptoms. General: Appears uncomfortable, obese, well groomed, well developed, well nourished, Behavior is calm, cooperative, appropriate for age. 14:00 Pain: Pain currently is 7 out of 10 on a pain scale. tl3 15:11 Reassessment: Lab at bedside for labs, will attempt IV again when they leave. tl3 15:41 Reassessment: Patient appears in no apparent distress at this time. No changes from tl3 previously documented assessment. Patient and/or family updated on plan of care and expected duration. Pain level reassessed. Patient is alert, oriented x 3, equal unlabored respirations, skin warm/dry/pink. still no IV access, lab unable to obtain all of needed labs, plan is to use ultra sound for IV placement. 18:18 Reassessment: Patient appears in no apparent distress at this time. No changes from tl3 previously documented assessment. Patient and/or family updated on plan of care and expected duration. Pain level reassessed. Patient is alert, oriented x 3, equal unlabored respirations, skin warm/dry/pink. Patient states feeling better. Vital Signs: 13:39 BP 130 / 87; Pulse 71; Resp 18; Temp 98.4(O); Pulse Ox 97% on R/A; Weight 95.25 kg; hj Height 5 ft. 4 in. (162.56 cm); Pain 9/10; 14:00 BP 118 / 62; Pulse 66; Resp 16; Pulse Ox 100% on R/A; tl3 18:18 BP 139 / 93; Pulse 57; Resp 18; Pulse Ox 97% ; tl3 13:39 Body Mass Index 36.04 (95.25 kg, 162.56 cm) ED Course: 13:23 Patient arrived in ED. mr 13:23 Lele Rahman DO is Private Physician. mr 13:37 Triage completed. hj 13:39 responder on. Pulse ox on. NIBP on. hj 13:39 Arm band placed on left wrist. hj 13:39 Patient maintains SpO2 saturation greater than 95% on room air. hj 13:45 Reba Hunt, ASHLEY is Primary Nurse. tl3 13:48 Krysta Griffin FNP is PHCP. kav 13:48 Joey Jung MD is Attending Physician. kav 14:00 Patient has correct armband on for positive identification. Placed in gown. Bed in low tl3 position. Call light in reach. Side rails up X 1. responder on. Pulse ox on. NIBP on. Warm blanket given. 14:00 No provider procedures requiring assistance completed. Missed attempt(s): 22 gauge in tl3 right forearm. 14:03 EKG done, by 3d technologist. reviewed by Krysta SALGUERO. at1 14:18 X-ray completed. Portable x-ray completed in exam room. Patient tolerated procedure sw well. 15:10 Resting quietly. tl3 16:16 Basic Metabolic Panel Sent. tl3 16:16 BNP Sent. tl3 16:17 CBC with Diff Sent. tl3 16:17 Ckmb Sent. tl3 16:17 CPK Sent. tl3 16:17 LFT's Sent. tl3 16:17 Magnesium Sent. tl3 16:17 PT-INR Sent. tl3 16:17 Ptt, Activated Sent. tl3 16:17 Troponin (emerg Dept Use Only) Sent. tl3 17:40 Lele Rahman DO is Referral Physician. kav 17:46 Per Crane MD is Referral Physician. [facility] 08/11 01:16 IV discontinued, intact, bleeding controlled, No redness/swelling at site. Pressure tl3 dressing applied. 01:17 Urine Dipstick--Ancillary (enter results) Sent. tl3 01:18 XRAY Chest (1 view) Sent. tl3 Administered Medications: 08/10 14:31 CANCELLED (md): TORadol 30 mg IVP once kav 16:19 Not Given (medicine not available): Dilaudid 0.5 mg IVP once tl3 16:20 Drug: morphine 4 mg Route: IVP; Infused Over: 3 mins; Site: left upper arm; tl3 16:21 Drug: NS 0.9% 1000 ml Route: IV; Rate: 125 ml/hr; Site: left upper arm; tl3 16:21 Drug: Zofran 4 mg Route: IVP; Site: left upper arm; tl3 Outcome: 17:40 Discharge ordered by . kav 18:51 Patient left the ED. tl3 08/11 01:16 Discharged to home ambulatory. tl3 Condition: stable Discharge instructions given to patient, Instructed on discharge instructions, follow up and referral plans. Signatures: Krysta Griffin, PROFILING MACHINE OPERATOR PROFILING MACHINE OPERATOR Laura Akhtar mr annabel Danielle, county records management officer EKG Tat1 Kassi Park Henry RN RN Reba Hunt, ASHLEY RN tl3 Corrections: (The following items were deleted from the chart) 08/10 13:41 13:39 Pulse 71bpm; Resp 18bpm; Pulse Ox 97% RA; Temp 98.4F Oral; 95.25 kg; Height 5 ft. hj 4 in.; BMI: 36.0; Pain 9/10; hj 16:21 16:20 morphine 4 mg IVP in left upper arm tl3 tl3
[2017-08-10 18:58] VITALS: TEMP 98.4
[2017-08-10 19:00] VITALS: BP 139/93; O2SAT 97
== END 2017-08-10 18:51 | disposition home or self-care (01) ==
LOC: ER 13:20
DX: E86.0 Dehydration (principal); R11.0 Nausea; I10 Essential (primary) hypertension; J44.9 Chronic obstructive pulmonary disease, unspecified; F31.9 Bipolar disorder, unspecified; Z21 Asymptomatic human immunodeficiency virus [HIV] infection status; Z88.1 Allergy status to other antibiotic agents; Z88.5 Allergy status to narcotic agent; Z88.6 Allergy status to analgesic agent; Z88.8 Allergy status to other drugs, medicaments and biological substances
CPT/HCPCS: 36415; 71045; 80048; 80076; 81003; 82550; 82553; 83735; 83880; 84484; 85025; 85610; 85730; 93005; 96374; 96375; 99285; J2405 ×2; J7030

== ENCOUNTER 2017-10-05 10:50 | Emergency (ER) | payer OTHER ==
--- OUTSIDE RECORDS SUMMARY | 2017-10-05 10:52 | XMS REPORT | Clinical Summary ---
:1955 Author Organization [facility] Address [address] [place] [address] Care Team Providers Name Role Phone Asked, [...] Orders Only Orthopedic Surgery Ora Ngo Orthopedic aftercare NEO Whyte (Primary Dx) 10/28/2016 Orders Only Orthopedic Surgery Richard Grissom MD 10/19/2016 - Hospital Encounter Orthopedic Surgery Wil[place], 10/21/2016 Austin Wilson MD 10/19/2016 Procedure Pass Orthopedic Surgery 10/19/2016 Surgery Orthopedic Surgery [place], REV. TOTAL SHOULDER Austin Wilson MD ARTHROPLASTY, REMOVAL OF HARDWARE 10/07/2016 Orders Only Orthopedic Surgery Phong Twan, Primary osteoarthritis MA of left shoulder (Primary Dx) 09/23/2016 Anest[facility] after 10/04/2016 Family History Medical History Relation Name Comments [...] Health Maintenance Due Date Last Done Comments CERVICAL CANCER SCREENING 01/22/1977 BREAST CANCER SCREENING 01/22/2006 COLON CANCER SCREENING 01/22/2006 SHINGRIX VACCINE (#1) 01/22/2006 ZOSTER VACCINE 2016 INFLUENZA VACCINE 12/21/2017 Implants Implanted Type Area Teacher Physically Impaired Device Expiration Model / Identifier Date Serial / Lot Versa-Dial/Comp Ti Std Taper Used W/25mm Glenoid Basplate - [id number] IPM N/ A: N/A [employer] 01/22/2026 [id number] / Implanted: Qty: 1 on 10/19/2016 by Austin Bowles MD IMPLANT / DEVICES [id number] 41mm Comprehensive Reverse Shoulder Glenosphere Ba - [id number] [id number] N/A: N/A [employer] 11/21/2023 [id number] / Implanted: Qty: 1 on 10/19/2016 by Austin Bowles MD IMPLANT / DEVICES [id number] Arcom Xl 44-41 Std +3 Humeral Brg - [id number] IPM Left: [employer] 07/20 XL [id number] / Implanted: Qty: 1 on 10/19/2016 by Austin Bowles MD IMPLANT Shoulder / DEVICES [id number] Humeral Tray With Locking Ring +5 Left: [employer] 03/31/2026 [id number] / Implanted: Qty: 1 on 10/19/2016 by Austin Bowles MD Shoulder / [id number] Procedures Procedure Name Priority Date/Time Associated Diagnosis Comments HI AN ELECTIVE Routine 10/19/2016 11:11 AM ENDOTRACHEAL [...] POSITION, SHOULDER ULTRASLING/CRYOCUFF, [place] UN[place] II after 10/04/2016 Results XR Shoulder 2+ Vw Left (11/03/2016 3:02 PM) [facility] [address] [place] [id number] Narrative Two views (true AP, axillary views) [...] and Americans. Specimen Performing Laboratory Plasma specimen [facility] DEPARTMENT OF PATHOLOGY AND GENOMIC MEDICINE [address] [place] [address] CBC with platelet and differential (10/21/2016 4:00 AM)Only the most recent of2 [...] (promyelocytes, myelocytes, metamyelocytes) Specimen Performing Laboratory Blood [facility] DEPARTMENT OF PATHOLOGY AND [facility] MEDICINE [address] [place] [address] Magnesium level (10/21/2016 4:00 AM)Only the most recent of2 resultswithin the time period is included. Component Value Ref Range Magnesium 1.9 1.6 - 2.4 mg/dL Specimen Performing Laboratory Plasma specimen [facility] DEPARTMENT OF PATHOLOGY AND [address] [address] Basic metabolic panel (10/21/2016 4:00 AM) Component [...] 10.2 mg/dL Specimen Performing Laboratory Plasma specimen [facility] DEPARTMENT OF PATHOLOGY AND [address] [address] B natriuretic peptide (10/20/2016 5:39 AM) Component Value Ref Range BNP 48 0 - 100 pg/mL Specimen Performing Laboratory Blood [facility] DEPARTMENT OF PATHOLOGY AND [facility] [address] [place] [address] Phosphorus level (10/20/2016 4:00 AM) Component Value Ref Range Phosphorus 4.2 2.4 - 4.5 mg/dL Specimen Performing Laboratory Plasma specimen [facility] DEPARTMENT OF PATHOLOGY AND GENOMIC MEDICINE [address] [place] [address] Comprehensive metabolic panel (10/20/2016 4:00 AM)Only the [...] 1.2 mg/dL Specimen Performing Laboratory Plasma specimen [facility] DEPARTMENT OF PATHOLOGY AND GENOMIC MEDICINE [address] [place] [address] Surgical pathology request (10/19/2016 12:58 PM) Component Value Ref Range Surgical pathology report See link below for PDF Lab Report Specimen Performing Laboratory [facility] DEPARTMENT OF PATHOLOGY AND GENOMIC MEDICINE [address] [place] [address] Fungus smear (10/19/2016 12:07 PM)Only the most recent of3 resultswithin the time period is included. Component Value Ref Range Fungus smear No fungi observed. Comment: Specimen Information Specimen Source: Tissue Specimen Site: Shoulder, left Specimen Performing Laboratory Tissue - Shoulder, left [facility] DEPARTMENT OF PATHOLOGY [address] [address] AFB culture (10/19/2016 12:07 PM)Only the most recent of3 resultswithin the time period is included. Component Value Ref Range AFB culture isolate No growth after 6 weeks of incubation. Comment: Specimen Information Specimen Source: Tissue Specimen Site: Shoulder, left Specimen Performing Laboratory Tissue [facility] PATHOLOGY [address] [address] Aerobic culture (10/19/2016 12:07 PM)Only the most recent of3 resultswithin the time period is included. Component Value Ref Range Aerobic culture isolate No growth after 3 days. Comment: Specimen Information Specimen Source: Tissue Specimen Site: Shoulder, left Specimen Performing Laboratory [facility] PATHOLOGY [address] [address] Gram stain (10/19/2016 12:07 PM)Only the most recent of3 resultswithin the time period is included. Component Value Ref Range Gram stain isolate Rare WBC's No organisms seen Comment: Specimen Information Specimen Source: Tissue Specimen Site: Shoulder, left Specimen Performing Laboratory [facility] PATHOLOGY [address] [address] AFB stain (10/19/2016 12:07 PM)Only the most recent of3 resultswithin the time period is included. Component Value Ref Range AFB stain No acid fast bacilli (AFB) seen. Comment: Specimen Information Specimen Source: Tissue Specimen Site: Shoulder, left Specimen Performing Laboratory [facility] PATHOLOGY [address] [address] Fungus culture (10/19/2016 12:07 PM)Only the most recent of3 resultswithin the time period is included. Component Value Ref Range Fungus culture isolate No growth after 4 weeks of incubation. Comment: Specimen Information Specimen Source: Tissue Specimen Site: Shoulder, left Specimen Performing Laboratory Tissue [facility] PATHOLOGY [address] [address] Anaerobic culture (10/19/2016 12:07 PM)Only the most recent of3 resultswithin the time period is included. Component Value Ref Range Anaerobic culture isolate No anaerobic organisms isolated. Comment: Specimen Information Specimen Source: Tissue Specimen Site: Shoulder, left Specimen Performing Laboratory Tissue - Shoulder, left [facility] DEPARTMENT OF PATHOLOGY AND GENOMIC MEDICINE [address] [place] [address] Type and screen (10/19/2016 8:43 AM) Component Value Ref Range ABO grouping A Rh type POS Antibody screen (gel) NEG Specimen Performing Laboratory Blood [facility] DEPARTMENT OF PATHOLOGY AND GENOMIC MEDICINE [address] [place] [address] after 10/04/2016 Insurance Payer Benefit Plan / Group Subscriber ID Type Phone Address [facility] MEDICARE [facility] DUAL COMPLETE MCR xxxxxxxxx [facility] MEDICAID [facility] COMM STAR+ BRIA xxxxxxxxx [facility]
--- NOTE | 2017-10-05 12:40 | RAD REPORT ---
EXAM DESCRIPTION: CT - [id number] - 10/05/2017 12:20 pm CLINICAL HISTORY: Fall with head and neck trauma 2 days earlier, persistent pain, positive loss of c onsciousness COMPARISON: CT imaging October 2015 TECHNIQUE: Axial 5 mm thick images of the head were obtained. Axial 2 mm thick images of the cervic al spine were obtained with sagittal and coronal reconstruction images generated and reviewed. All CT scans are performed using dose optimization technique as appropriate and may include automated exposure control or mA/KV adjustment according to patient size. FINDINGS: No intracranial hemorrhage, mass, edema or acute intracranial finding. No acute cortical i nfarction. Scattered chronic ischemic changes are present. Atrophy is minimal. Ventricles are normal in size. No extra-axial fluid collections. Mastoid air cells and paranasal sinuses are clear. No glob e or orbit abnormality seen. Cervical bodies are normal in height. There is minimal subluxation of C5 on C6 secondary to facet deg enerative change. Moderate C5-6 and advanced C6-7 disc space narrowing and degenerative disc disease noted. No pathologic bone process. Central canal detail is inherently limited. No fracture or acute b yobany abnormality. Prominent right facet degenerative change at C2-3 and C3-4 where there is right fora michelle stenosis. Advanced left facet joint degenerative change at C4-5 with foraminal encroachment of the foramen. Right foraminal stenosis at C5-6 and C6-7. No paraspinal mass or hematoma. IMPRESSION: No hemorrhage, edema or acute intracranial finding. No significant change from September 2015. Advanced cervical spine degenerative change as detailed. No fracture or acute finding seen. Negative CT cervical spine examination for acute or significant finding.
--- NOTE | 2017-10-05 12:59 | RAD REPORT ---
EXAM DESCRIPTION: RAD - Elbow Left 3 View - 10/05/2017 12:48 pm CLINICAL HISTORY: Fall, elbow pain COMPARISON: None. FINDINGS: No fracture is identified and no elevated posterior fat pad. There is no dislocation or pe riosteal reaction noted. Minimal degenerative change present along the anterior margin of the humerus -ulna joint space. No foreign body or other soft tissue abnormality. IMPRESSION: Minimal degenerative change with no acute bone or joint finding.
[2017-10-05] MEDS ORDERED: HYDROCODONE/APAP 10/325 TAB ONE (13:11)
--- NOTE | 2017-10-05 14:01 | EDPHYS ---
Physician Documentation [facility] Name: Marjan Fleming Age: 62 yrs Sex: Female : 1955 Arrival Date: 10/05/2017 Time: 10:52 Bed 20 Private MD: Lele Rahman H ED Physician Joey Jung HPI: 10/05 13:01 This 62 yrs old Female presents to ER via Ambulatory with complaints of kdr Headache. 13:01 The patient complains of pain to the left mandaeism. The patient describes the headache as kdr constant, a pressure, unrelenting. Onset: The symptoms/episode began/occurred 2 day(s) ago. Historical: - Allergies: 11:06 Bactrim DS; aj 11:06 Codeine; aj 11:06 metoclopramide HCl; aj 11:06 Stadol; aj - Home Meds: 11:06 Ativan 2 mg Oral tab 2 tabs 2 times per day for Anxiety [Active]; Descovy 200-25 mg aj Oral tab 1 tab once daily [Active]; hydralazine 25 mg Oral tab 1 tab 2 times per day for Hypertension [Active]; issentress BID twice a day [Active]; lisinopril 40 mg Oral tab 1 tab twice a day for Hypertension [Active]; Nexium 40 mg Oral cpDR 1 cap once daily [Active]; Norvasc 10 mg Oral tab 1 tab once daily for Hypertension [Active]; proair as needed [Active]; sertraline 100 mg Oral tab 2 tabs once daily [Active]; Spiriva daily [Active]; Toprol XL 100 mg Oral Tb24 1 tab twice a day for Hypertension [Active]; Triamterene-Hydrochlorothiazid Oral 1 cap once daily [Active]; - PMHx: 11:06 Anxiety; Bipolar disorder; Chronic pain; COPD; esophageal varices; Hepatitis; HIV; aj Hypertension; Migraines; Panic Attacks; - PSHx: 11:06 Cholecystectomy; Appendectomy; shoulder; aj - Immunization history:: Adult Immunizations. - Social history:: Smoking status: Patient uses tobacco products, smokes one-half pack cigarettes per day. ROS: 14:04 Constitutional: Negative for fever, chills, and weight loss, Eyes: Negative for injury, kdr pain, redness, and discharge, ENT: Negative for injury, pain, and discharge, Neck: Negative for injury, pain, and swelling, Cardiovascular: Negative for chest pain, palpitations, and edema, Respiratory: Negative for shortness of breath, cough, wheezing, and pleuritic chest pain, Abdomen/GI: Negative for abdominal pain, nausea, vomiting, diarrhea, and constipation, Back: Negative for injury and pain, : Negative for injury, bleeding, discharge, and swelling, Skin: Negative for injury, rash, and discoloration, Psych: Negative for depression, anxiety, suicide ideation, homicidal ideation, and hallucinations, Allergy/Immunology: Negative for hives, rash, and allergies, Endocrine: Negative for neck swelling, polydipsia, polyuria, polyphagia, and marked weight changes, Hematologic/Lymphatic: Negative for swollen nodes, abnormal bleeding, and unusual bruising. 14:04 MS/extremity: Positive for contusion, tenderness, Negative for deformity, ecchymosis, paresthesias. 14:04 Neuro: Positive for headache, Negative for Exam: 14:04 Constitutional: This is a well developed, well nourished patient who is awake, alert, kdr and in no acute distress. Eyes: Pupils equal round and reactive to light, extra-ocular motions intact. Lids and lashes normal. Conjunctiva and sclera are non-icteric and not injected. Cornea within normal limits. Periorbital areas with no swelling, redness, or edema. Neck: Trachea midline, no thyromegaly or masses palpated, and no cervical lymphadenopathy. Supple, full range of motion without nuchal rigidity, or vertebral point tenderness. No Meningismus. Chest/axilla: Normal chest wall appearance and motion. Nontender with no deformity. No lesions are appreciated. Cardiovascular: Regular rate and rhythm with a normal S1 and S2. No gallops, murmurs, or rubs. Normal PMI, no JVD. No pulse deficits. Respiratory: Lungs have equal breath sounds bilaterally, clear to auscultation and percussion. No rales, rhonchi or wheezes noted. No increased work of breathing, no retractions or nasal flaring. Abdomen/GI: Soft, non-tender, with normal bowel sounds. No distension or tympany. No guarding or rebound. No evidence of tenderness throughout. Back: No spinal tenderness. No costovertebral tenderness. Full range of motion. Skin: Warm, dry with normal turgor. Normal color with no rashes, no lesions, and no evidence of cellulitis. Neuro: Awake and alert, GCS 15, oriented to person, place, time, and situation. Cranial nerves II-XII grossly intact. Motor strength 5/5 in all extremities. Sensory grossly intact. Cerebellar exam normal. Normal gait. Psych: Awake, alert, with orientation to person, place and time. Behavior, mood, and affect are within normal limits. 14:04 Head/face: Noted is tenderness, that is mild, of the left mandaeism. 14:04 Musculoskeletal/extremity: Extremities: grossly normal except: noted in the left elbow: contusion, pain. Vital Signs: 11:06 BP 144 / 104; Pulse 72; Resp 18; Temp 97.2; Pulse Ox 97% on R/A; Weight 92.99 kg; aj Height 5 ft. 4 in. (162.56 cm); 12:23 BP 136 / 84; Pulse 54; Resp 17; Pulse Ox 100% on R/A; tw2 13:23 BP 130 / 85; Pulse 52; Resp 17; Pulse Ox 96% on R/A; tw2 14:16 BP 142 / 83; Pulse 77; Resp 17; Pulse Ox 97% on R/A; tw2 11:06 Body Mass Index 35.19 (92.99 kg, 162.56 cm) aj MDM: 14:00 Patient medically screened. kdr 14:04 Data reviewed: vital signs, nurses notes, radiologic studies. Counseling: I had a kdr detailed discussion with the patient and/or guardian regarding: the historical points, exam findings, and any diagnostic results supporting the discharge/admit diagnosis, radiology results, the need for outpatient follow up. 10/05 11:58 Order name: CT Head C Spine; Complete Time: 13:01 kdr 10/05 11:58 Order name: Elbow Left 3 View XRAY; Complete Time: 13:01 kdr Administered Medications: 13:13 Drug: [place] 10 mg-325 mg 1 tabs Route: PO; tw2 14:20 Follow up: Response: No adverse reaction; Pain is decreased tw2 Disposition: 10/05/17 14:00 Discharged to Home. Impression: Superficial injury of head, Headache, Contusion of left elbow. - Condition is Fair. - Discharge Instructions: General Headache Without Cause, Head Injury, Adult, [id number], Elbow Contusion, [id number]. - Prescriptions for Tramadol 50 mg Oral Tablet - take 1 tablet by ORAL route every 8 hours as needed; 12 tablet. - Medication Reconciliation Form, Thank You Letter, Prescription Opioid Use form. - Follow up: Lacey, UrmilaDO Cody; When: 1 - 2 days; Reason: If symptoms return, Further diagnostic work-up, Recheck today's complaints, Continuance of care, Re-evaluation by your physician. - Problem is new. - Symptoms have improved. Signatures: Dispatcher [employer] EDMS Danielle Chiang RN RN aj Joey Jung MD MD kdr Karen Tovar RN RN tw2 Corrections: (The following items were deleted from the chart) 14:23 14:00 10/05/2017 14:00 Discharged to Home. Impression: Superficial injury of head; tw2 Headache; Contusion of left elbow. Condition is Fair. Forms are Medication Reconciliation Form, Thank You Letter, Antibiotic Education, Prescription Opioid Use. Follow up: UrmilaCody Rahman; When: 1 - 2 days; Reason: If symptoms return, Further diagnostic work-up, Recheck today's complaints, Continuance of care, Re-evaluation by your physician. Problem is new. Symptoms have improved. kdr
--- NOTE | 2017-10-05 14:01 | ER ---
Nurse's Notes [facility] Name: Marjan Fleming Age: 62 yrs Sex: Female : 1955 Arrival Date: 10/05/2017 Time: 10:52 Bed 20 Private MD: Lele Rahman H Diagnosis: Superficial injury of head;Headache;Contusion of left elbow Presentation: 10/05 11:03 Presenting complaint: Patient states: Patient reports falling and hitting left rastafari aj on coffee table 2 days ago, reports + LOC. Patient reports pain to left rastafari, no bruising or abrasion noted. Patient ambulated to triage with steady gait, speech clear. Transition of care: patient was not received from another setting of care. Onset of symptoms was October 03, 2017. Care prior to arrival: None. 11:03 Method Of Arrival: Ambulatory aj 11:03 Acuity: BLAYNE 4 aj 11:51 Initial Sepsis Screen: Does the patient meet any 2 criteria? No. Patient's initial tw2 sepsis screen is negative. Does the patient have a suspected source of infection? No. Patient's initial sepsis screen is negative. Triage Assessment: 11:06 Headache History: The patient has had previous headaches. General: Appears in no aj apparent distress. comfortable, Behavior is calm, cooperative, appropriate for age. Pain: Complains of pain in left rastafari. Neuro: Level of Consciousness is awake, alert, obeys commands, Oriented to person, place, time, situation, Appropriate for age Research Psychologist are equal bilaterally Moves all extremities. Full function Gait is steady, Speech is normal, Facial symmetry appears normal. Respiratory: Airway is patent Respiratory effort is even, unlabored, Respiratory pattern is regular, symmetrical. Derm: Skin is intact, is healthy with good turgor, Skin is pink, warm \T\ dry. normal. 11:51 Pain: Pain currently is 8 out of 10 on a pain scale. Pain began 2-3 days ago. Also tw2 complains of dizziness when she looks to the left. Historical: - Allergies: 11: Bactrim DS; aj 11:06 Codeine; aj 11:06 metoclopramide HCl; aj 11:06 Stadol; aj - Home Meds: 11: Ativan 2 mg Oral tab 2 tabs 2 times per day for Anxiety [Active]; Descovy 200-25 mg aj Oral tab 1 tab once daily [Active]; hydralazine 25 mg Oral tab 1 tab 2 times per day for Hypertension [Active]; issentress BID twice a day [Active]; lisinopril 40 mg Oral tab 1 tab twice a day for Hypertension [Active]; Nexium 40 mg Oral cpDR 1 cap once daily [Active]; Norvasc 10 mg Oral tab 1 tab once daily for Hypertension [Active]; proair as needed [Active]; sertraline 100 mg Oral tab 2 tabs once daily [Active]; Spiriva daily [Active]; Toprol XL 100 mg Oral Tb24 1 tab twice a day for Hypertension [Active]; Triamterene-Hydrochlorothiazid Oral 1 cap once daily [Active]; - PMHx: 11:06 Anxiety; Bipolar disorder; Chronic pain; COPD; esophageal varices; Hepatitis; HIV; aj Hypertension; Migraines; Panic Attacks; - PSHx: 11:06 Cholecystectomy; Appendectomy; shoulder; aj - Immunization history:: Adult Immunizations. - Social history:: Smoking status: Patient uses tobacco products, smokes one-half pack cigarettes per day. Screenin:50 Abuse screen: Denies threats or abuse. Nutritional screening: No deficits noted. tw2 Tuberculosis screening: No symptoms or risk factors identified. Fall Risk Fall in past 12 months (25 points). Assessment: 11:49 General: Appears in no apparent distress. Behavior is calm, cooperative, appropriate tw2 for age. Pain: Complains of pain in left antecubital area and left elbow and face and left rastafari. Neuro: Level of Consciousness is awake, alert, obeys commands, Oriented to person, place, time, situation, Reports dizziness, since 2 days ago when she hit her left rastafari on coffee table headache. Cardiovascular: Denies chest pain, shortness of breath, Heart tones S1 S2 Capillary refill < 3 seconds. Respiratory: Airway is patent Respiratory effort is even, unlabored, Respiratory pattern is regular, symmetrical, Breath sounds are clear bilaterally. GI: No signs and/or symptoms were reported involving the gastrointestinal system. : No signs and/or symptoms were reported regarding the genitourinary system. EENT: No signs and/or symptoms were reported regarding the EENT system. Derm: No signs and/or symptoms reported regarding the dermatologic system. Bruising that is bright red, dark purple, on left arm, right leg and left leg. Musculoskeletal: Range of motion: intact in all extremities. 12:24 Reassessment: Patient appears in no apparent distress at this time. No changes from tw2 previously documented assessment. Patient and/or family updated on plan of care and expected duration. Pain level reassessed. Patient is alert, oriented x 3, equal unlabored respirations, skin warm/dry/pink. 13:24 Reassessment: Patient appears in no apparent distress at this time. No changes from tw2 previously documented assessment. Patient and/or family updated on plan of care and expected duration. Pain level reassessed. Patient is alert, oriented x 3, equal unlabored respirations, skin warm/dry/pink. 14:21 Reassessment: Patient appears in no apparent distress at this time. Patient and/or tw2 family updated on plan of care and expected duration. Pain level reassessed. Patient is alert, oriented x 3, equal unlabored respirations, skin warm/dry/pink. Patient states feeling better. Patient states symptoms have improved. Vital Signs: 11:06 BP 144 / 104; Pulse 72; Resp 18; Temp 97.2; Pulse Ox 97% on R/A; Weight 92.99 kg; aj Height 5 ft. 4 in. (162.56 cm); 12:23 BP 136 / 84; Pulse 54; Resp 17; Pulse Ox 100% on R/A; tw2 13:23 BP 130 / 85; Pulse 52; Resp 17; Pulse Ox 96% on R/A; tw2 14:16 BP 142 / 83; Pulse 77; Resp 17; Pulse Ox 97% on R/A; tw2 11:06 Body Mass Index 35.19 (92.99 kg, 162.56 cm) aj ED Course: 10:52 Patient arrived in ED. mr 10:53 Lele Rahman DO is Private Physician. mr 11:05 Triage completed. aj 11:06 Arm band placed on left wrist. Patient placed in waiting room, Patient notified of wait aj time. 11:37 Karen Tovar, ASHLEY is Primary Nurse. tw2 11:38 Joey Jung MD is Attending Physician. kdr 11:49 Bed in low position. Call light in reach. Pulse ox on. NIBP on. tw2 12:[address] vm2 12:16 CT Head C Spine In Process Unspecified. EDMS 12:46 X-ray completed. Portable x-ray completed in exam room. Patient tolerated procedure sw well. 12:48 Elbow Left 3 View XRAY In Process Unspecified. EDMS 13:59 Lele Rahman DO is Referral Physician. kdr 14:22 No provider procedures requiring assistance completed. Patient did not have IV access tw2 during this emergency room visit. Administered Medications: 13:13 Drug: [place] 10 mg-325 mg 1 tabs Route: PO; tw2 14:20 Follow up: Response: No adverse reaction; Pain is decreased tw2 Outcome: 14:00 Discharge ordered by . kdr 14:22 Discharged to home ambulatory. tw2 14:22 Condition: stable 14:22 Discharge instructions given to patient, Instructed on discharge instructions, follow up and referral plans. no drinking with medication, no driving heavy equipment, medication usage, safety practices, Demonstrated understanding of instructions, follow-up care, medications, Prescriptions given X 1. 14:23 Patient left the ED. tw2 Signatures: Dispatcher [employer] EDMS Danielle Chiang, RN Joey Mendez MD MD kdr Rivera, Maria mr XavierKassi Tara, RN RN tw2 Renae Camarillo 2
[2017-10-05 14:28] VITALS: TEMP 97.2
[2017-10-05 14:31] VITALS: BP 142/83; O2SAT 97
== END 2017-10-05 14:23 | disposition home or self-care (01) ==
LOC: ER 10:50
DX: S00.90XA Unspecified superficial injury of unspecified part of head, initial encounter (principal); S50.02XA Contusion of left elbow, initial encounter; W18.39XA Other fall on same level, initial encounter; Y93.9 Activity, unspecified; Y92.9 Unspecified place or not applicable; Z21 Asymptomatic human immunodeficiency virus [HIV] infection status; F41.9 Anxiety disorder, unspecified; Z88.3 Allergy status to other anti-infective agents; Z88.5 Allergy status to narcotic agent; Z88.8 Allergy status to other drugs, medicaments and biological substances; J44.9 Chronic obstructive pulmonary disease, unspecified; I10 Essential (primary) hypertension; F31.9 Bipolar disorder, unspecified; F17.210 Nicotine dependence, cigarettes, uncomplicated
CPT/HCPCS: 70450; 72125; 99284

== ENCOUNTER 2017-11-01 01:46 | Emergency (ER) | payer OTHER ==
--- OUTSIDE RECORDS SUMMARY | 2017-11-01 01:49 | XMS REPORT | Clinical Summary ---
:1955 Author Organization [facility] Address [address] [place] [address] Care Team Providers Name Role Phone Asked, No Pcp Primary Care Provider Unavailable Allergies Active Allergy Reactions Severity Noted Date Comments Codeine 07/30/2016 Metoclopramide Hcl 09/23/2016 Current Medications Prescription Sig. Disp. Refills Start Date End Date Status lisinopril Take 40 mg by mouth. Active (PRINIVIL,ZESTRIL) 40 mg tablet metoprolol tartrate Take 100 mg by Active (LOPRESSOR) 100 mg mouth. tablet amLODIPine (NORVASC) 10 Take 10 mg by mouth. Active mg tablet LORAZepam (ATIVAN) 2 MG Take 2 mg by mouth. Active tablet ARIPiprazole (ABILIFY) 5 Take 5 mg by mouth. Active MG tablet sertraline (ZOLOFT) 25 200 mg every Active MG tablet morning. triamterene-hydrochlorot Take 1 tablet by Active hiazid (MAXZIDE-25) mouth daily. 37.5-25 mg per tablet DESCOVY 200-25 mg tablet 5 08/09/2016 Active ISENTRESS 400 mg tablet TK 1 T PO BID 3 08/07/2016 Active esomeprazole (NexIUM) 40 Take 40 mg by mouth Active MG capsule 2 (two) times a day. clobetasol (TEMOVATE) Apply topically 2 Active 0.05 % ointment (two) times a day. 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 Encounters Date Type Specialty Care Team Description 11/03/2016 Office Visit Orthopedic Surgery Ora Ngo Orthopedic aftercare NEO Whyte (Primary Dx) 11/03/2016 Orders Only Orthopedic Surgery Alaina Crowell Orthopedic aftercare (Primary Dx); Osteoarthritis of left shoulder, unspecified osteoarthritis type 11/03/2016 Orders Only Orthopedic Surgery Gregory Ngoa Orthopedic aftercare NEO Whyte (Primary Dx) after 10/31/2016 Family History Medical History Relation Name Comments [...] Vital Sign Reading Time Taken Blood Pressure - - Pulse 78 11/03/2016 2:58 PM CDT Temperature - - Respiratory Rate - - Oxygen Saturation - - Inhaled Oxygen Concentration - - Weight - - Height - - Body Mass Index - - Plan of Treatment Health Maintenance Due Date Last Done Comments CERVICAL CANCER SCREENING 01/22/1977 BREAST CANCER SCREENING 01/22/2006 COLON CANCER SCREENING 01/22/2006 SHINGRIX VACCINE (#1) 01/22/2006 ZOSTER VACCINE 2016 INFLUENZA VACCINE 12/21/2017 Implants Implanted Type Area Hose Suspender Cutter Device Expiration Model / Identifier Date Serial / Lot Versa-Dial/Comp Ti Std Taper Used W/25mm Glenoid Basplate - [id number] N/ A: N/A [employer] 01/22/2026 [id number] / Implanted: Qty: 1 on 10/19/2016 by Austin Bowles MD IMPLANT / DEVICES [id number] 41mm Comprehensive Reverse Shoulder Glenosphere Ba - [id number] IPM N/A: N/A [employer] 11/21/2023 [id number] / Implanted: Qty: 1 on 10/19/2016 by Austin Bowles MD IMPLANT / DEVICES [id number] Arcom Xl 44-41 Std +3 Humeral Brg - [id number] IPM Left: [employer] 07/20 XL [id number] / Implanted: Qty: 1 on 10/19/2016 by Austin Bowles MD IMPLANT Shoulder / DEVICES [id number] Humeral Tray With Locking Ring +5 Left: [employer] 03/31/2026 [id number] / Implanted: Qty: 1 on 10/19/2016 by Austin Bowles MD Shoulder / [id number] Results XR Shoulder 2+ Vw Left (11/03/2016 3:02 PM) Specimen Performing Laboratory [facility] [id number] [place] [address] Narrative Two views (true AP, axillary views) of the left shoulder are obtained and reviewed today.There is no evidence of dislocation , fracture or other complication. The prosthesis appears to be in good position. after 10/31/2016 Insurance Payer Benefit Plan / Group Subscriber ID Type Phone Address [facility] MEDICARE [facility] DUAL COMPLETE MCR xxxxxxxxx O [facility] MEDICAID [facility] COMM STAR+ BRIA xxxxxxxxx O
[2017-11-01] MEDS ORDERED: ALBUTEROL 2.5 MG/3 ML NEB SOL ONE (02:14)
[2017-11-01] MEDS ORDERED: METHYLPREDNISOLONE 125 MG INJ ONE (02:14)
[2017-11-01] MEDS ORDERED: IPRATROPIUM BROM 0.5MG/2.5ML ONE (02:14)
[2017-11-01] MEDS ORDERED: MORPHINE 4 MG/ML SYR ONE (02:15)
[2017-11-01] MEDS ORDERED: HYDROCODONE/CHLORPHEN 5 ML/OSYR ONE (02:15)
[2017-11-01] MEDS ORDERED: NA CHLORIDE 0.9% 1,000 ML ONE (02:15)
[2017-11-01 02:19] LABS: Arterial Blood Carboxyhemoglob 2.8 % (0-1.5); Blood Gas Oxyhemoglobin 90.5 % (94-97); Blood O2 Saturation 94.5 % (92-98.5)
[2017-11-01 02:48] LABS: Urine Blood TRACE (NEG); Urine Glucose NEGATIVE (NEG); Urine Protein NEGATIVE (NEG); Urine Specific Gravity 1.025 (1.005-1.030); Urine pH 5.5 (5.0-7.0)
[2017-11-01] MEDS ORDERED: ONDANSETRON 4 MG/2 ML VIAL ONE (02:49)
[2017-11-01 02:58] LABS: Absolute Lymphocytes (CBC) 1.1 K/uL (0.7-4.9); Absolute Monocytes 0.5 K/uL (0.1-1.3); Basophils % 0.5 % (0-1.3); Eosinophils % 1.6 % (0-4.4); Hematocrit 31.1 % (36.0-45.0); Lymphocytes % 16.3 % (15.3-44.8); MCV 70.7 fL (80-100); MPV 7.4 fL (7.6-11.3); Monocytes % 6.8 % (3.3-12.3); RBC Red Blood Cell Count 4.39 M/uL (3.86-4.86)
[2017-11-01 03:04] LABS: Protime INR 0.92
[2017-11-01 03:13] LABS: Bicarbonate 28 mEq/L (21-31); Glucose Level 101 mg/dL (65-120); Potassium 3.9 mEq/L (3.6-5.0); Sodium Level 136 mEq/L (135-145)
[2017-11-01 03:19] LABS: ALT/SGPT 32 IU/L (10-60); AST/SGOT 36 IU/L (10-42); Albumin 3.6 g/dL (3.2-5.5); Alkaline Phosphatase 75 IU/L (42-121); BUN Blood Urea Nitrogen 25 mg/dL (6-20); Bilirubin Direct < 0.1 mg/dL (0-0.2); Bilirubin Total 0.4 mg/dL (0.3-1.2); Creatine Phosphokinase 44 IU/L (22-269); Protein, Total 7.2 g/dL (6.0-8.3)
[2017-11-01 03:21] LABS: CKMB Creatine Kinase MB 1.2 ng/ml (0.3-4.0)
--- NOTE | 2017-11-01 03:49 | EDPHYS ---
Physician Documentation [facility] Name: Marjan Fleming Age: 62 yrs Sex: Female : 1955 Arrival Date: 11/01/2017 Time: 01:58 Bed 6 Private MD: ED Physician Hans Dawson HPI: 11/01 02:06 This 62 yrs old Female presents to ER via EMS with unknown complaint. pkl 02:06 The patient has shortness of breath at rest. Onset: The symptoms/episode began/occurred pkl 2 day(s) ago. Associated signs and symptoms: Pertinent positives: non-productive cough. Historical: - Allergies: 02:03 Bactrim DS; ao 02:03 Codeine; ao 02:03 metoclopramide HCl; ao 02:03 Stadol; ao - Home Meds: 02:03 Ativan 2 mg Oral tab 2 tabs 2 times per day for Anxiety [Active]; Descovy 200-25 mg ao Oral tab 1 tab once daily [Active]; hydralazine 25 mg Oral tab 1 tab 2 times per day for Hypertension [Active]; issentress BID twice a day [Active]; Nexium 40 mg Oral cpDR 1 cap once daily [Active]; lisinopril 40 mg Oral tab 1 tab twice a day for Hypertension [Active]; Norvasc 10 mg Oral tab 1 tab once daily for Hypertension [Active]; proair as needed [Active]; sertraline 100 mg Oral tab 2 tabs once daily [Active]; Triamterene-Hydrochlorothiazid Oral 1 cap once daily [Active]; Toprol XL 100 mg Oral Tb24 1 tab twice a day for Hypertension [Active]; Spiriva daily [Active]; - PMHx: 02:03 Anxiety; Bipolar disorder; Chronic pain; COPD; esophageal varices; Hepatitis; HIV; ao Hypertension; Migraines; Panic Attacks; - PSHx: 02:03 Appendectomy; Cholecystectomy; Shoulder reapair; ao - Immunization history:: Adult Immunizations up to date. - Social history:: Smoking status: Patient uses tobacco products, denies chronic smoking, but will smoke occasionally. - Ebola Screening: : Patient negative for fever greater than or equal to 101.5 degrees Fahrenheit, and additional compatible Ebola Virus Disease symptoms Patient denies exposure to infectious person Patient denies travel to an Ebola-affected area in the 21 days before illness onset. ROS: 02:06 Eyes: Negative for injury, pain, redness, and discharge, ENT: Negative for injury, pkl pain, and discharge, Neck: Negative for injury, pain, and swelling, Cardiovascular: Negative for chest pain, palpitations, and edema. 02:06 Respiratory: Positive for cough, with no reported sputum. 02:06 Abdomen/GI: Negative for abdominal pain, nausea, vomiting, and diarrhea. 02:06 Back: Negative for acute changes. 02:06 : Negative for urinary symptoms. 02:06 MS/extremity: Negative for acute changes. 02:06 Skin: Negative for rash. 02:06 Neuro: Negative for altered mental status. Exam: 02:06 Head/Face: Normocephalic, atraumatic. Eyes: Pupils equal round and reactive to light, pkl extra-ocular motions intact. Lids and lashes normal. Conjunctiva and sclera are non-icteric and not injected. Cornea within normal limits. Periorbital areas with no swelling, redness, or edema. ENT: Nares patent. No nasal discharge, no septal abnormalities noted. Tympanic membranes are normal and external auditory canals are clear. Oropharynx with no redness, swelling, or masses, exudates, or evidence of obstruction, uvula midline. Mucous membranes moist. Neck: Trachea midline, no thyromegaly or masses palpated, and no cervical lymphadenopathy. Supple, full range of motion without nuchal rigidity, or vertebral point tenderness. No Meningismus. Chest/axilla: Normal chest wall appearance and motion. Nontender with no deformity. No lesions are appreciated. Cardiovascular: Regular rate and rhythm with a normal S1 and S2. No gallops, murmurs, or rubs. Normal PMI, no JVD. No pulse deficits. 02:06 Respiratory: the patient does not display signs of respiratory distress, Respirations: normal, Breath sounds: bronchial sounds, that are mild, are scattered. 02:06 Abdomen/GI: Bowel sounds: normal, Palpation: abdomen is soft and non-tender. 02:06 Back: Exam negative for acute changes. 02:06 : Exam negative for acute changes. 02:06 Musculoskeletal/extremity: Exam is negative for acute changes. 02:06 Skin: Exam negative for rash. 02:06 Neuro: Orientation: is normal, Mentation: is normal, Cranial nerves: grossly normal, Motor: is normal. Vital Signs: 02:00 BP 149 / 81; Pulse 63; Resp 20; Pulse Ox 99% on R/A; Weight 94.35 kg (M); Height 5 ft. ao 4 in. (162.56 cm) (M); Pain 0/10; 03:20 BP 142 / 80; Pulse 62; Resp 18; Pulse Ox 99% on R/A; Pain 0/10; ao 02:00 Body Mass Index 35.70 (94.35 kg, 162.56 cm) ao MDM: 01:58 Patient medically screened. pkl 03:47 Data reviewed: vital signs, nurses notes, lab test result(s), EKG, radiologic studies, pkl plain films. 11/01 02:04 Order name: Basic Metabolic Panel; Complete Time: 03:38 pkl 11/01 02:04 Order name: BNP; Complete Time: 03:38 pkl 11/01 02:04 Order name: CBC with Diff; Complete Time: 03:38 pkl 11/01 02:04 Order name: Ckmb; Complete Time: 03:38 pkl 11/01 02:04 Order name: CPK; Complete Time: 03:38 pkl 11/01 02:04 Order name: LFT's; Complete Time: 03:38 pkl 11/01 02:04 Order name: Magnesium; Complete Time: 03:38 pkl 11/01 02:04 Order name: PT-INR; Complete Time: 03:38 pkl 11/01 02:04 Order name: Ptt, Activated; Complete Time: 03:38 pkl 11/01 02:04 Order name: Troponin (emerg Dept Use Only); Complete Time: 03:38 pkl 11/01 02:04 Order name: XRAY Chest (1 view) pkl 11/01 02:04 Order name: Blood Culture Adult (2) pkl 11/01 02:04 Order name: ABG pkl 11/01 02:20 Order name: Urine Dipstick--Ancillary (enter results); Complete Time: 03:38 ms 11/01 02:04 Order name: EKG; Complete Time: 02:05 pkl 11/01 02:04 Order name: Cardiac monitoring; Complete Time: 02:51 pkl 11/01 02:04 Order name: EKG - Nurse/Tech; Complete Time: 03:11 pkl 12 02:04 Order name: IV Saline Lock; Complete Time: 02:50 pkl 12 02:04 Order name: Labs collected and sent; Complete Time: 02:50 pkl 12 02:04 Order name: O2 Per Protocol; Complete Time: 02:51 pkl 12 02:04 Order name: O2 Sat Monitoring; Complete Time: 02:51 pkl 12 02:04 Order name: Urine Dipstick-Ancillary (obtain specimen); Complete Time: 02:18 pkl Administered Medications: 02:32 Drug: Tussionex Pennkinetic ER 5 ml Route: PO; ao 03:57 Follow up: Response: No adverse reaction ao 02:50 Drug: morphine 2 mg Route: IVP; Site: left antecubital; ao 03:57 Follow up: Response: No adverse reaction ao 02:50 Drug: Zofran 4 mg Route: IVP; Site: left antecubital; ao 03:57 Follow up: Response: No adverse reaction ao 02:50 Drug: Albuterol - atroVENT (3:1) (2.5 mg - 0.5 mg) 3 ml Route: Nebulizer; mg2 03:58 Follow up: Response: No adverse reaction ao 02:53 Drug: SOLU-Medrol 125 mg Route: IVP; Site: left antecubital; ao 03:58 Follow up: Response: No adverse reaction ao 02:54 Drug: NS 0.9% 1000 ml Route: IV; Rate: 125 ml/hr; Site: left antecubital; ao 03:57 Follow up: IV Status: Order to discontinue infusion; IV Intake: 300ml ao 04:09 Drug: Zithromax 500 mg Route: PO; ao 04:09 Follow up: Response: Medication administered at discharge. ao Disposition: 11/01/17 03:49 Discharged to Home. Impression: COPD Excerabation . - Condition is Stable. - Prescriptions for Albuterol Sulfate 2.5 mg /3 mL (0.083 %) Inhalation Solution for Nebulization - inhale 1 unit by NEBULIZATION route every 8 hours As needed; 1 box. Zithromax Z- Niall 250 mg Oral Tablet - take 1 tablet by ORAL route as directed for 5 days Day 1 - take two (2) tablets one time. Day 2, 3, 4 , 5 take one (1) tablet once daily.; 6 tablet. - Medication Reconciliation Form, Thank You Letter, Antibiotic Education, Prescription Opioid Use form. - Follow up: Private Physician; When: 2 - 3 days; Reason: Re-evaluation by your physician. - Problem is new. - Symptoms have improved. Signatures: Dispatcher [employer] EDMO Hans Dawson MD MD pkl Judd Coronel, RN RN Isaias Smith RN RN mg2 Corrections: (The following items were deleted from the chart) 04:10 03:49 11/01/2017 03:49 Discharged to Home. Impression: COPD Excerabation . Condition is ao Stable. Forms are Medication Reconciliation Form, Thank You Letter, Antibiotic Education, Prescription Opioid Use. Follow up: Private Physician; When: 2 - 3 days; Reason: Re-evaluation by your physician. Problem is new. Symptoms have improved. pkl
--- NOTE | 2017-11-01 03:49 | ER ---
Nurse's Notes [facility] Name: Marjan Fleming Age: 62 yrs Sex: Female : 1955 Arrival Date: 11/01/2017 Time: 01:58 Bed 6 Private MD: Diagnosis: COPD Excerabation Presentation: 11/01 01:58 Presenting complaint: EMS states: "Patient is SOB for the past 2 days. Patient O2 was ao 97% RA at home and she got a breathing treatment that helped her O2 to go up to 100%.". Transition of care: patient was not received from another setting of care. Onset of symptoms is unknown. Risk Assessment: Do you want to hurt yourself or someone else? Patient reports no desire to harm self or others. Initial Sepsis Screen: Does the patient meet any 2 criteria? No. Patient's initial sepsis screen is negative. Does the patient have a suspected source of infection? No. Patient's initial sepsis screen is negative. Care prior to arrival: None. 01:58 Method Of Arrival: EMS: [facility] ao 01:58 Acuity: BLAYNE 3 ao Triage Assessment: 02:05 General: Appears in no apparent distress. comfortable, Behavior is calm, cooperative, ao appropriate for age. Pain: Denies pain. EENT: No signs and/or symptoms were reported regarding the EENT system. Neuro: Level of Consciousness is awake, alert, obeys commands, Oriented to person, place, time, situation, Appropriate for age Moves all extremities. Speech is normal, Facial symmetry appears normal. Cardiovascular: Capillary refill < 3 seconds Patient's skin is warm and dry. Respiratory: Airway is patent Respiratory effort is even, unlabored, Respiratory pattern is regular, symmetrical. GI: Abdomen is non-distended. : No signs and/or symptoms were reported regarding the genitourinary system. Derm: No signs and/or symptoms reported regarding the dermatologic system. Skin is dry, Skin is pink, warm \\T\\ dry. normal. Musculoskeletal: Range of motion: intact in all extremities. Historical: - Allergies: 02:03 Bactrim DS; ao 02:03 Codeine; ao 02:03 metoclopramide HCl; ao 02:03 Stadol; ao - Home Meds: 02:03 Ativan 2 mg Oral tab 2 tabs 2 times per day for Anxiety [Active]; Descovy 200-25 mg ao Oral tab 1 tab once daily [Active]; hydralazine 25 mg Oral tab 1 tab 2 times per day for Hypertension [Active]; issentress BID twice a day [Active]; Nexium 40 mg Oral cpDR 1 cap once daily [Active]; lisinopril 40 mg Oral tab 1 tab twice a day for Hypertension [Active]; Norvasc 10 mg Oral tab 1 tab once daily for Hypertension [Active]; proair as needed [Active]; sertraline 100 mg Oral tab 2 tabs once daily [Active]; Triamterene-Hydrochlorothiazid Oral 1 cap once daily [Active]; Toprol XL 100 mg Oral Tb24 1 tab twice a day for Hypertension [Active]; Spiriva daily [Active]; - PMHx: 02:03 Anxiety; Bipolar disorder; Chronic pain; COPD; esophageal varices; Hepatitis; HIV; ao Hypertension; Migraines; Panic Attacks; - PSHx: 02:03 Appendectomy; Cholecystectomy; Shoulder reapair; ao - Immunization history:: Adult Immunizations up to date. - Social history:: Smoking status: Patient uses tobacco products, denies chronic smoking, but will smoke occasionally. - Ebola Screening: : Patient negative for fever greater than or equal to 101.5 degrees Fahrenheit, and additional compatible Ebola Virus Disease symptoms Patient denies exposure to infectious person Patient denies travel to an Ebola-affected area in the 21 days before illness onset. Screenin:04 Abuse screen: Denies threats or abuse. Denies injuries from another. Nutritional ao screening: No deficits noted. Tuberculosis screening: No symptoms or risk factors identified. Fall Risk None identified. Assessment: 02:07 General: See triage note. ao 03:20 Reassessment: Patient appears in no apparent distress at this time. Patient and/or ao family updated on plan of care and expected duration. Pain level reassessed. Patient is alert, oriented x 3, equal unlabored respirations, skin warm/dry/pink. Patient resting with no SS of distress Patient denies pain at this time. Vital Signs: 02:00 BP 149 / 81; Pulse 63; Resp 20; Pulse Ox 99% on R/A; Weight 94.35 kg (M); Height 5 ft. ao 4 in. (162.56 cm) (M); Pain 0/10; 03:20 BP 142 / 80; Pulse 62; Resp 18; Pulse Ox 99% on R/A; Pain 0/10; ao 02:00 Body Mass Index 35.70 (94.35 kg, 162.56 cm) ao ED Course: 01:58 Patient arrived in ED. ao 01:58 Hans Dawson MD is Attending Physician. pkl 02:00 Triage completed. ao 02:04 Arm band placed on right wrist. Patient placed in an exam room, on a stretcher, on ao oxygen, on pulse oximetry, Patient notified of wait time. 02:04 Patient has correct armband on for positive identification. Pulse ox on. NIBP on. ao 02:07 Judd Coronel, ASHLEY is Primary Nurse. ao 02:34 X-ray completed. Portable x-ray completed in exam room. Patient tolerated procedure kw well. 02:34 XRAY Chest (1 view) In Process Unspecified. EDMS 02:52 Inserted saline lock: 22 gauge in left antecubital area, using aseptic technique. Blood mg2 collected. by ASHLEY Whaley, ultrasound guided. 04:09 No provider procedures requiring assistance completed. IV discontinued, intact, ao bleeding controlled, No redness/swelling at site. Pressure dressing applied. Administered Medications: 02:32 Drug: Tussionex Pennkinetic ER 5 ml Route: PO; ao 03:57 Follow up: Response: No adverse reaction ao 02:50 Drug: morphine 2 mg Route: IVP; Site: left antecubital; ao 03:57 Follow up: Response: No adverse reaction ao 02:50 Drug: Zofran 4 mg Route: IVP; Site: left antecubital; ao 03:57 Follow up: Response: No adverse reaction ao 02:50 Drug: Albuterol - atroVENT (3:1) (2.5 mg - 0.5 mg) 3 ml Route: Nebulizer; mg2 03:58 Follow up: Response: No adverse reaction ao 02:53 Drug: SOLU-Medrol 125 mg Route: IVP; Site: left antecubital; ao 03:58 Follow up: Response: No adverse reaction ao 02:54 Drug: NS 0.9% 1000 ml Route: IV; Rate: 125 ml/hr; Site: left antecubital; ao 03:57 Follow up: IV Status: Order to discontinue infusion; IV Intake: 300ml ao 04:09 Drug: Zithromax 500 mg Route: PO; ao 04:09 Follow up: Response: Medication administered at discharge. ao Intake: 03:57 IV: 300ml; Total: 300ml. ao Outcome: 03:49 Discharge ordered by . pkmabel 04:10 Discharged to home ambulatory. ao 04:10 Condition: stable 04:10 Discharge instructions given to patient, Instructed on discharge instructions, follow up and referral plans. Demonstrated understanding of instructions, follow-up care, medications, Prescriptions given X 3. 04:10 Patient left the ED. ao Signatures: Dispatcher [employer] EDMS Hans Dawson MD MD pkl Whitley, Kimberlee kw Ortiz, Alex, RN RN ao Gardose, Michele, RN RN mg2 Corrections: (The following items were deleted from the chart) 03:07 02:52 Inserted saline lock: 22 gauge in left antecubital area, using aseptic technique. mg2 Blood collected. by ASHLEY Whaley mg2
[2017-11-01] MEDS ORDERED: AZITHROMYCIN 250 MG TAB ONE (04:05)
--- NOTE | 2017-11-01 05:33 | EKG ---
Test Date: 2017-11-01 Test Time: 02:59:35 Nurse Special: CIERRA MEASUREMENT RESULTS: Intervals: Rate: 66 PA: 170 QRSD: 78 QT: 460 QTc: 482 [place]: P: -15 PA: 170 QRS: -5 T: -2 INTERPRETIVE STATEMENTS: Normal sinus rhythm Moderate voltage criteria for LVH, may be normal variant Nonspecific ST abnormality Abnormal ECG Compared to ECG 08/10/2017 13:48:56 No significant changes Electronically Signed On 11-01-17 05:33:05 CDT by Per Crane
[2017-11-01 05:35] VITALS: O2SAT 99
[2017-11-01 05:36] VITALS: BP 142/80
--- NOTE | 2017-11-01 08:01 | RAD REPORT ---
EXAM DESCRIPTION: Patrick Single View11/01/2017 2:36 am CLINICAL HISTORY: Shortness of breath COMPARISON: July 2017 FINDINGS: The lungs appear clear of acute infiltrate. The heart is borderline enlarged. A small to moderate hiatal hernia is seen IMPRESSION: No acute abnormalities displayed
== END 2017-11-01 04:10 | disposition home or self-care (01) ==
LOC: ER 01:46
DX: J44.1 Chronic obstructive pulmonary disease with (acute) exacerbation (principal); I10 Essential (primary) hypertension; F31.9 Bipolar disorder, unspecified; K75.9 Inflammatory liver disease, unspecified; Z21 Asymptomatic human immunodeficiency virus [HIV] infection status; Z72.0 Tobacco use; Z88.1 Allergy status to other antibiotic agents; Z88.5 Allergy status to narcotic agent; Z88.8 Allergy status to other drugs, medicaments and biological substances
CPT/HCPCS: 36415; 71045; 80048; 80076; 81003; 82550; 82553; 82805; 83735; 83880; 84484; 85025; 85610; 85730; 87040 ×2; 93005; 94640; 96361; 96374; 96375; 99285; J2405; J2930; J7030

== ENCOUNTER 2017-11-01 13:50 | Emergency (ER) | payer OTHER ==
--- OUTSIDE RECORDS SUMMARY | 2017-11-01 13:53 | XMS REPORT | Clinical Summary ---
:1955 Author Organization [facility] Address [address] [place] [address] Care Team Providers Name Role Phone Asked, [...] INFLUENZA VACCINE 12/21/2017 Implants Implanted Type Area Product Test Specialist Device Expiration Model / Identifier Date Serial / Lot Versa-Dial/Comp Ti Std Taper Used W/25mm Glenoid Basplate - [id number] N/ A: N/A [employer] 01/22/2026 [id number] / Implanted: Qty: 1 on 10/19/2016 by Austin Bowles MD IMPLANT / DEVICES [id number] 41mm Comprehensive Reverse Shoulder Glenosphere Ba - [id number] [id number] N/A: N/A [employer] 11/21/2023 [id number] / Implanted: Qty: 1 on 10/19/2016 by Austin Bowles MD IMPLANT / DEVICES [id number] Arcom Xl 44-41 Std +3 Humeral Brg - [id number] IPM Left: [employer] 07/20 XL [id number] / Implanted: Qty: 1 on 10/19/2016 by Austin Bowles MD IMPLANT Shoulder / DEVICES [id number] Humeral Tray With Locking Ring +5 Left: [employer] 03/31/2026 [id number] / Implanted: Qty: 1 on 10/19/2016 by Austin Bowles MD Shoulder / [id number] Results XR Shoulder 2+ Vw Left (11/03/2016 3:02 PM) Specimen Performing Laboratory [facility] [id number] [place] [address] Narrative Two views (true AP, axillary views) of the left shoulder are obtained and reviewed today.There is no evidence of dislocation , fracture or other complication. The prosthesis appears to be in good position. after 10/31/2016 Insurance Payer Benefit Plan / Group Subscriber ID Type Phone Address [facility] MEDICARE [facility] DUAL COMPLETE MCR xxxxxxxxx O [facility] MEDICAID [facility] COMM STAR+ BRIA xxxxxxxxx O
[2017-11-01] MEDS ORDERED: IPRATROPIUM BROM 0.5MG/2.5ML ONE (14:23)
[2017-11-01] MEDS ORDERED: ALBUTEROL 2.5 MG/3 ML NEB SOL ONE (14:23)
[2017-11-01] MEDS ORDERED: HYDROCODONE/CHLORPHEN 5 ML/OSYR ONE (14:23)
[2017-11-01 14:30] LABS: Urine Blood NEGATIVE (NEG); Urine Glucose NEGATIVE (NEG); Urine Protein NEGATIVE (NEG); Urine Specific Gravity 1.025 (1.005-1.030)
--- NOTE | 2017-11-01 14:37 | EKG ---
Test Date: 2017-11-01 Test Time: 14:08:11 Pile Driver Operator Barge Mounted: FABIOLA MEASUREMENT RESULTS: Intervals: Rate: 73 IA: 170 QRSD: 80 QT: 418 QTc: 460 [place]: P: 24 IA: 170 QRS: -5 T: 7 INTERPRETIVE STATEMENTS: Normal sinus rhythm Moderate voltage criteria for LVH, may be normal variant Borderline ECG Compared to ECG 11/01/2017 02:59:35 ST (T wave) deviation no longer present Electronically Signed On 11-01-17 14:36:53 CDT by Per Crane
--- NOTE | 2017-11-01 15:09 | RAD REPORT ---
EXAM DESCRIPTION: RAD - Chest Pa And Lat (2 Views) - 11/01/2017 3:03 pm CLINICAL HISTORY: Coughing and wheezing. COMPARISON: 11/01/2017, 08/10/2017 FINDINGS: The lungs are clear. The heart is normal in size. No displaced fractures. Bilateral should er arthroplasties. Moderate hiatal hernia. IMPRESSION: No acute intrathoracic process suspected. Moderate hiatal hernia.
[2017-11-01] MEDS ORDERED: DIAZEPAM 2 MG TABLET ONE (16:55)
--- NOTE | 2017-11-01 17:16 | EDPHYS ---
Physician Documentation [facility] Name: Marjan Fleming Age: 62 yrs Sex: Female : 1955 Arrival Date: 11/01/2017 Time: 13:53 Bed 23 Private MD: Lele Rahman H ED Physician Ramon Baker HPI: 11/01 15:00 This 62 yrs old Female presents to ER via Ambulatory with complaints of Cough.pm1 15:00 The patient or guardian reports cough. pm1 15:00 Onset: The symptoms/episode began/occurred 2 day(s) ago. Severity of symptoms: in the pm1 emergency department the symptoms are actually worse. Modifying factors: The symptoms are alleviated by nebulizer treatment, the symptoms are aggravated by nothing. Associated signs and symptoms: Pertinent negatives: chest pain, fever, nausea, vomiting. The patient has experienced similar episodes in the past, multiple times. The patient has been recently seen at the [facility] Emergency Department, today, for similar complaints labs were performed, X-rays were performed, was given a prescription for antibiotics. Patient seen here earlier today and had cardiac workup with ABG. Patient discharged home with dx of copd exacerbation and given prescription of antibiotics. Patient feels that her cough is worse and she is afraid of PCP pneumonia. Chest xray with infiltrates. Historical: - Allergies: 13:58 Bactrim DS; sv 13:58 Codeine; sv 13:58 metoclopramide HCl; sv 13:58 Stadol; sv - PMHx: 13:58 Anxiety; esophageal varices; Bipolar disorder; Chronic pain; COPD; Hepatitis; sv Hypertension; HIV; Migraines; Panic Attacks; - PSHx: 13:58 Appendectomy; Cholecystectomy; Shoulder repair; sv - Immunization history:: Adult Immunizations up to date. - Social history:: Smoking status: Patient uses tobacco products, smokes one-half pack cigarettes per day. - Ebola Screening: : No symptoms or risks identified at this time. ROS: 15:00 Constitutional: Negative for fever, chills, and weight loss, Eyes: Negative for injury, pm1 pain, redness, and discharge, ENT: Negative for injury, pain, and discharge, Neck: Negative for injury, pain, and swelling, Cardiovascular: Negative for chest pain, palpitations, and edema. 15:00 Abdomen/GI: Negative for abdominal pain, nausea, vomiting, diarrhea, and constipation, Back: Negative for injury and pain, : Negative for injury, bleeding, discharge, and swelling, MS/Extremity: Negative for injury and deformity, Skin: Negative for injury, rash, and discoloration, Neuro: Negative for headache, weakness, numbness, tingling, and seizure. 15:00 Respiratory: Positive for cough, shortness of breath, Negative for sputum production, wheezing. Exam: 15:00 Constitutional: This is a well developed, well nourished patient who is awake, alert, pm1 and in no acute distress. Head/Face: Normocephalic, atraumatic. Neck: Trachea midline, no thyromegaly or masses palpated, and no cervical lymphadenopathy. Supple, full range of motion without nuchal rigidity, or vertebral point tenderness. No Meningismus. Chest/axilla: Normal chest wall appearance and motion. Nontender with no deformity. No lesions are appreciated. Cardiovascular: Regular rate and rhythm with a normal S1 and S2. No gallops, murmurs, or rubs. Normal PMI, no JVD. No pulse deficits. Respiratory: Lungs have equal breath sounds bilaterally, clear to auscultation and percussion. No rales, rhonchi or wheezes noted. No increased work of breathing, no retractions or nasal flaring. Abdomen/GI: Soft, non-tender, with normal bowel sounds. No distension or tympany. No guarding or rebound. No evidence of tenderness throughout. Back: No spinal tenderness. No costovertebral tenderness. Full range of motion. Skin: Warm, dry with normal turgor. Normal color with no rashes, no lesions, and no evidence of cellulitis. MS/ Extremity: Pulses equal, no cyanosis. Neurovascular intact. Full, normal range of motion. 15:00 Neuro: Orientation: is normal, Motor: is normal, moves all fours, Gait: is steady, at a normal pace, without difficulty. Vital Signs: 13:57 BP 151 / 92; Pulse 78; Resp 24; Temp 97.6; Pulse Ox 97% ; Weight 94.35 kg; Height 5 ft. sv 4 in. (162.56 cm); Pain 10/10; 14:32 BP 138 / 82; Pulse 76; Resp 20; Pulse Ox 100% on Nebulizer Mask; Pain 10/10; ed1 15:37 BP 135 / 80; Pulse 82; Resp 20; Pulse Ox 95% on R/A; Pain 10/10; ed1 17:04 BP 138 / 76; Pulse 84; Resp 22; Temp 98.5(O); Pulse Ox 97% on R/A; Pain 10/10; ed1 13:57 Body Mass Index 35.70 (94.35 kg, 162.56 cm) sv MDM: 14:11 Patient medically screened. pm1 17:15 Data reviewed: vital signs. Data interpreted: Pulse oximetry: on room air is 97 %. pm1 Interpretation: normal. Counseling: I had a detailed discussion with the patient and/or guardian regarding: the historical points, exam findings, and any diagnostic results supporting the discharge/admit diagnosis, radiology results, the need for outpatient follow up, to return to the emergency department if symptoms worsen or persist or if there are any questions or concerns that arise at home. 11/01 14:17 Order name: Urine Dipstick--Ancillary (enter results); Complete Time: 16:06 ag 11/01 14:22 Order name: Chest Pa And Lat (2 Views) XRAY; Complete Time: 16:06 pm1 12 14:03 Order name: EKG; Complete Time: 14:04 ag 12 14:03 Order name: EKG - Nurse/Tech; Complete Time: 14:09 ag Administered Medications: 14:25 Drug: Albuterol - atroVENT (3:1) (2.5 mg - 0.5 mg) 3 ml Route: Nebulizer; ed1 17:03 Follow up: Response: No adverse reaction; Marked relief of symptoms ed1 14:26 Drug: Tussionex Pennkinetic ER 5 ml Route: PO; ed1 17:03 Follow up: Response: No adverse reaction; Marked relief of symptoms ed1 17:04 Drug: Valium 2 mg Route: PO; ed1 17:32 Follow up: Response: No adverse reaction ed1 Disposition: 18 17:16 Discharged to Home. Impression: COPD Exacerbation. - Condition is Stable. - Discharge Instructions: Chronic Obstructive Pulmonary Disease. - Medication Reconciliation Form, Thank You Letter, Antibiotic Education form. - Follow up: Emergency Department; When: As needed; Reason: Worsening of condition. Follow up: Lele Rahman DO; When: 2 - 3 days; Reason: Recheck today's complaints, Continuance of care, Re-evaluation by your physician. - Problem is new. - Symptoms have improved. Addendum: 11/03/2017 07:01 Co-signature as Attending Physician, Ramon Baker MD. r n Signatures: Dispatcher [employer] EDLeyda Jones, RN Ramon Lerma MD MD rn Riggs, Erika, RN HEMODIALYSIS CHARGE RN HEMODIALYSIS CHARGE ed1 Yojana Sanchez Patrick, JOB ANALYSIS MANAGER JOB ANALYSIS MANAGER pm1 Corrections: (The following items were deleted from the chart) 11/01 17:32 17:16 11/01/2017 17:16 Discharged to Home. Impression: COPD Exacerbation. Condition is ed1 Stable. Forms are Medication Reconciliation Form, Thank You Letter, Antibiotic Education, Prescription Opioid Use. Follow up: Emergency Department; When: As needed; Reason: Worsening of condition. Follow up: Lele Rahman; When: 2 - 3 days; Reason: Recheck today's complaints, Continuance of care, Re-evaluation by your physician. Problem is new. Symptoms have improved. pm1
--- NOTE | 2017-11-01 17:16 | ER ---
Nurse's Notes [facility] Name: Marjan Fleming Age: 62 yrs Sex: Female : 1955 Arrival Date: 11/01/2017 Time: 13:53 Bed 23 Private MD: Lele Rahman H Diagnosis: COPD Exacerbation Presentation: 11/01 13:56 Presenting complaint: Patient states: cough, wheezing, headache, chest pain x 3 days. sv Was seen here last night, prescriptions haven't been filled. Transition of care: patient was not received from another setting of care. Onset of symptoms was October 29, 2017. Care prior to arrival: None. 13:56 Method Of Arrival: Ambulatory sv 13:56 Acuity: BLAYNE 3 sv 14:10 Risk Assessment: Do you want to hurt yourself or someone else? Patient reports no ed1 desire to harm self or others. Initial Sepsis Screen: Does the patient meet any 2 criteria? No. Patient's initial sepsis screen is negative. Does the patient have a suspected source of infection? No. Patient's initial sepsis screen is negative. Historical: - Allergies: 13:58 Bactrim DS; sv 13:58 Codeine; sv 13:58 metoclopramide HCl; sv 13:58 Stadol; sv - PMHx: 13:58 Anxiety; esophageal varices; Bipolar disorder; Chronic pain; COPD; Hepatitis; sv Hypertension; HIV; Migraines; Panic Attacks; - PSHx: 13:58 Appendectomy; Cholecystectomy; Shoulder repair; sv - Immunization history:: Adult Immunizations up to date. - Social history:: Smoking status: Patient uses tobacco products, smokes one-half pack cigarettes per day. - Ebola Screening: : No symptoms or risks identified at this time. Screenin:10 Abuse screen: Denies threats or abuse. Denies injuries from another. Nutritional ed1 screening: No deficits noted. Tuberculosis screening: No symptoms or risk factors identified. Fall Risk None identified. Assessment: 14:10 General: Appears uncomfortable, Behavior is calm, cooperative. Pain: Complains of pain ed1 in chest Pain does not radiate. Pain currently is 10 out of 10 on a pain scale. Quality of pain is described as aching, Pain began 2-3 days ago. Is episodic. Neuro: Level of Consciousness is awake, alert, obeys commands, Oriented to person, place, time, situation. Cardiovascular: Reports chest pain, worsened by coughing. Respiratory: Reports shortness of breath cough that is pain with cough pain with movement pain with respiration Airway is patent Respiratory effort is even, unlabored, Respiratory pattern is regular, symmetrical, Breath sounds with wheezes bilaterally. GI: No signs and/or symptoms were reported involving the gastrointestinal system. : No signs and/or symptoms were reported regarding the genitourinary system. EENT: No signs and/or symptoms were reported regarding the EENT system. Derm: Skin is pink, warm \\T\\ dry. Musculoskeletal: Circulation, motion, and sensation intact. 14:20 General: The previous assessment is accurate, call light remains within reach. . ss 14:32 Reassessment: Pt states "I haven't eaten or drank anything in awhile, you might want to ed1 give me fluids. Also can I have the same pain medication that I had last night it made me feel a lot better." I informed the the patient that and IV had not been ordered at this time. 15:36 Reassessment: Pt states "I am in severe pain. I want to talk to Dr. Kolb because I ed1 know he will admit me and I think I need to stay at least over night." Austin notified, Sandra, charge nurse notified. 17:04 Reassessment: Patient appears in no apparent distress at this time. No changes from ed1 previously documented assessment. Patient and/or family updated on plan of care and expected duration. Pain level reassessed. Patient is alert, oriented x 3, equal unlabored respirations, skin warm/dry/pink. Patient states symptoms have not improved. Vital Signs: 13:57 BP 151 / 92; Pulse 78; Resp 24; Temp 97.6; Pulse Ox 97% ; Weight 94.35 kg; Height 5 ft. sv 4 in. (162.56 cm); Pain 10/10; 14:32 BP 138 / 82; Pulse 76; Resp 20; Pulse Ox 100% on Nebulizer Mask; Pain 10/10; ed1 15:37 BP 135 / 80; Pulse 82; Resp 20; Pulse Ox 95% on R/A; Pain 10/10; ed1 17:04 BP 138 / 76; Pulse 84; Resp 22; Temp 98.5(O); Pulse Ox 97% on R/A; Pain 10/10; ed1 13:57 Body Mass Index 35.70 (94.35 kg, 162.56 cm) ED Course: 13:53 Patient arrived in ED. mr 13:53 Lacey UrmilaBibianaFranciscoDO is Private Physician. mr 13:57 Triage completed. sv 13:58 Arm band placed on right wrist. sv 14:08 Austin Raza NP is PHCP. pm1 14:08 Ramon Baker MD is Attending Physician. pm1 14:09 Idalmis Wood LVN is Primary Nurse. ed1 14:10 Patient has correct armband on for positive identification. Bed in low position. Call ed1 light in reach. 14:30 EKG done, by electronic technologist. reviewed by Austin Raza NP. at1 14:58 Chest Pa And Lat (2 Views) XRAY In Process Unspecified. EDMS 17:15 Rahman, UrmilaBibianaFranciscoDO is Referral Physician. pm1 17:31 No provider procedures requiring assistance completed. Patient did not have IV access ed1 during this emergency room visit. Administered Medications: 14:25 Drug: Albuterol - atroVENT (3:1) (2.5 mg - 0.5 mg) 3 ml Route: Nebulizer; ed1 17:03 Follow up: Response: No adverse reaction; Marked relief of symptoms ed1 14:26 Drug: Tussionex Pennkinetic ER 5 ml Route: PO; ed1 17:03 Follow up: Response: No adverse reaction; Marked relief of symptoms ed1 17:04 Drug: Valium 2 mg Route: PO; ed1 17:32 Follow up: Response: No adverse reaction ed1 Outcome: 17:16 Discharge ordered by . pm1 17:31 Discharged to home ambulatory. ed1 17:31 Condition: good 17:31 Discharge instructions given to patient, Instructed on discharge instructions, follow up and referral plans. Demonstrated understanding of instructions, follow-up care. 17:32 Patient left the ED. ed1 Signatures: Dispatcher [employer] EDMS Leyda Santamaria RN RN sv Rivera, Maria mr Sandra Cadet, ASHLEY RAMIREZ Idalmis Wood LVN CONTENT DESIGNER ed1 Danielle jin, treating plant pumper EKG Tat1 Austin Raza, SEROLOGY TECHNICIAN SEROLOGY TECHNICIAN pm1 Corrections: (The following items were deleted from the chart) 14:00 13:57 BP 151 / 92; Pulse 78bpm; Resp 24bpm; Pulse Ox 97%; 94.35 kg; Height 5 ft. 4 in.; sv BMI: 35.7; Pain 10/10; sv 14:05 13:56 Acuity: BLAYNE 4 sv sv
[2017-11-01 17:40] VITALS: BP 138/76; TEMP 98.5; O2SAT 97
== END 2017-11-01 17:32 | disposition home or self-care (01) ==
LOC: ER 13:50
DX: J44.1 Chronic obstructive pulmonary disease with (acute) exacerbation (principal); Z88.1 Allergy status to other antibiotic agents; Z88.5 Allergy status to narcotic agent; Z88.8 Allergy status to other drugs, medicaments and biological substances; F41.9 Anxiety disorder, unspecified; F31.9 Bipolar disorder, unspecified; G89.29 Other chronic pain; I10 Essential (primary) hypertension; B20 Human immunodeficiency virus [HIV] disease; G43.909 Migraine, unspecified, not intractable, without status migrainosus; F17.210 Nicotine dependence, cigarettes, uncomplicated
CPT/HCPCS: 71046; 81003; 93005; 94640; 99284

== ENCOUNTER 2017-11-02 05:30 | Emergency (ER) | payer OTHER ==
--- OUTSIDE RECORDS SUMMARY | 2017-11-02 05:32 | XMS REPORT | Clinical Summary ---
:1955 Author Organization [facility] Address [address] [place] [address] Care Team Providers Name Role Phone Asked, [...] Orthopedic aftercare NEO Whyte (Primary Dx) after 11/01/2016 Family History Medical History Relation Name Comments [...] INFLUENZA VACCINE 12/21/2017 Implants Implanted Type Area House Director Device Expiration Model / Identifier Date Serial / Lot Versa-Dial/Comp Ti Std Taper Used W/25mm Glenoid Basplate - [id number] [id number] N/ A: N/A [employer] 01/22/2026 [id number] / Implanted: Qty: 1 on 10/19/2016 by Austin Bowles MD IMPLANT / DEVICES [id number] 41mm Comprehensive Reverse Shoulder Glenosphere Ba - [id number] [id number] N/A: N/A [employer] 11/21/2023 [id number] / Implanted: Qty: 1 on 10/19/2016 by Austin Bowles MD IMPLANT / DEVICES [id number] Arcom Xl 44-41 Std +3 Humeral Brg - [id number] [id number] Left: [employer] 07/20 XL [id number] / Implanted: Qty: 1 on 10/19/2016 by Austin Bowles MD IMPLANT Shoulder / DEVICES [id number] Humeral Tray With Locking Ring +5 Left: [employer] 03/31/2026 [id number] / Implanted: Qty: 1 on 10/19/2016 by Austin Bowles MD Shoulder / [id number] Results XR Shoulder 2+ Vw Left (11/03/2016 3:02 PM) Specimen Performing Laboratory [facility] [id number] [place] [address] Narrative Two views (true AP, axillary views) of the left shoulder are obtained and reviewed today.There is no evidence of dislocation , fracture or other complication. The prosthesis appears to be in good position. after 11/01/2016 Insurance Payer Benefit Plan / Group Subscriber ID Type Phone Address [facility] MEDICARE [facility] DUAL COMPLETE MCR xxxxxxxxx O [facility] MEDICAID [facility] COMM STAR+ BRIA xxxxxxxxx O
[2017-11-02] MEDS ORDERED: ACETAMINOPHEN 325 MG TABLET ONE (06:23)
[2017-11-02] MEDS ORDERED: METHYLPREDNISOLONE 125 MG INJ ONE (06:31)
[2017-11-02] MEDS ORDERED: IPRATROPIUM BROM 0.5MG/2.5ML ONE ×2 (06:31→08:26)
[2017-11-02] MEDS ORDERED: ALBUTEROL 2.5 MG/3 ML NEB SOL ONE ×2 (06:31→08:26)
[2017-11-02] MEDS ORDERED: HYDRALAZINE HCL 20 MG/ML VIAL ONE (06:32)
[2017-11-02] MEDS ORDERED: DIAZEPAM 10 MG/2 ML INJ SYRINGE ONE ×2 (06:38→08:00)
[2017-11-02 07:15] LABS: Absolute Lymphocytes (CBC) 0.3 K/uL (0.7-4.9); Absolute Monocytes 0.5 K/uL (0.1-1.3); Absolute Neutrophil 7.7 K/uL (1.8-8.0); Basophils % 0.2 % (0-1.3); Eosinophils % 0.3 % (0-4.4); Hematocrit 32.2 % (36.0-45.0); MCH 22.8 pg (27.0-35.0); MCV 70.6 fL (80-100); MPV 7.5 fL (7.6-11.3); Monocytes % 5.4 % (3.3-12.3); RBC Red Blood Cell Count 4.56 M/uL (3.86-4.86)
[2017-11-02 07:23] LABS: Potassium 4.1 mEq/L (3.6-5.0)
[2017-11-02] MEDS ORDERED: NA CHLORIDE 0.9% 1,000 ML ONE (07:24)
[2017-11-02 07:26] LABS: Albumin 4.1 g/dL (3.2-5.5); Bilirubin Total 0.4 mg/dL (0.3-1.2); Protein, Total 7.9 g/dL (6.0-8.3)
[2017-11-02] MEDS ORDERED: MORPHINE 4 MG/ML SYR ONE (08:14)
[2017-11-02] MEDS ORDERED: ONDANSETRON 4 MG/2 ML VIAL ONE (08:15)
--- NOTE | 2017-11-02 08:23 | RAD REPORT ---
EXAM DESCRIPTION: RAD - Chest Single View - 11/02/2017 7:11 am CLINICAL HISTORY: Chest pain. COMPARISON: 11/01/2017 FINDINGS: Portable technique limits examination quality. The lungs are grossly clear. The heart is normal in size. No displaced fractures.Bilateral shoulder a rthroplasty IMPRESSION: No acute intrathoracic process suspected.
[2017-11-02 08:26] LABS: Anisocytosis SLIGHT; Blood Morphology Comment NOTED (NOT SEEN); Platelet Estimate ADEQ
--- NOTE | 2017-11-02 08:44 | EDPHYS ---
Physician Documentation [facility] Name: Marjan Fleming Age: 62 yrs Sex: Female : 1955 Arrival Date: 11/02/2017 Time: 05:30 Bed 16 Private MD: Lele Rahman H ED Physician Hans Dawson HPI: 11/02 06:23 This 62 yrs old Female presents to ER via Ambulatory with complaints of kav Breathing Difficulty. 06:23 The patient has shortness of breath at rest, with light activity, and the patient has a kav history of COPD. Onset: The symptoms/episode began/occurred acutely. Duration: The symptoms are intermittent. The patient's shortness of breath is aggravated by smoking, is alleviated by prescription meds, medrol dose pack, abx, codeine cough syrup. Associated signs and symptoms: Pertinent positives: productive cough, Pertinent negatives: chest pain, diaphoresis, dizziness, fever, hemoptysis, loss of consciousness, nausea, numbness in extremities, visual changes, vomiting. Severity of symptoms: At their worst the symptoms were moderate just prior to arrival. 06:27 The patient has experienced similar episodes in the past, a few times, with the last kav episode occurring yesterday, and the symptoms today are exactly the same, to when the patient was apparently diagnosed with COPD. The patient has been recently seen by a physician: The patient has been recently seen at the [facility] Emergency Department, yesterday, Was seen in this ER 0n 11/01/17 two times for c/o sob. Patient had a full work-up on 11/01/17 including ABG, CXR, Labwork. She was diagnosed with COPD and give steroid, abx, cough syrup. She returns this morning with same symptoms.. O2sat 94% RA OA. Historical: - Allergies: 05:43 Bactrim DS; aa1 05:43 Codeine; aa1 05:43 metoclopramide HCl; aa1 05:43 Stadol; aa1 - Home Meds: 05:43 Ativan 2 mg Oral tab 2 tabs 2 times per day for Anxiety [Active]; Descovy 200-25 mg aa1 Oral tab 1 tab once daily [Active]; hydralazine 25 mg Oral tab 1 tab 2 times per day for Hypertension [Active]; issentress BID twice a day [Active]; lisinopril 40 mg Oral tab 1 tab twice a day for Hypertension [Active]; Nexium 40 mg Oral cpDR 1 cap once daily [Active]; Norvasc 10 mg Oral tab 1 tab once daily for Hypertension [Active]; proair as needed [Active]; sertraline 100 mg Oral tab 2 tabs once daily [Active]; Spiriva daily [Active]; Toprol XL 100 mg Oral Tb24 1 tab twice a day for Hypertension [Active]; Triamterene-Hydrochlorothiazid Oral 1 cap once daily [Active]; - PMHx: 05:43 Anxiety; Bipolar disorder; Chronic pain; COPD; esophageal varices; Hepatitis; HIV; aa1 Hypertension; Migraines; Panic Attacks; - PSHx: 05:43 Appendectomy; Cholecystectomy; Shoulder repair; aa1 - Immunization history:: Flu vaccine is up to date. - Social history:: Smoking status: Patient uses tobacco products, smokes one-half pack cigarettes per day. - Ebola Screening: : No symptoms or risks identified at this time. - Family history:: not pertinent. - Hospitalizations: : No recent hospitalization is reported. - History obtained from: Old record and Nursing Staff. ROS: 06:30 Constitutional: Negative for fever, chills, and weight loss, Eyes: Negative for injury, kav pain, redness, and discharge, ENT: Negative for injury, pain, and discharge, Neck: Negative for injury, pain, and swelling, Cardiovascular: Negative for chest pain, palpitations, and edema, Abdomen/GI: Negative for abdominal pain, nausea, vomiting, diarrhea, and constipation, Back: Negative for injury and pain, : Negative for injury, bleeding, discharge, and swelling, MS/Extremity: Negative for injury and deformity, Skin: Negative for injury, rash, and discoloration, Neuro: Negative for headache, weakness, numbness, tingling, and seizure, Psych: Negative for depression, anxiety, suicide ideation, homicidal ideation, and hallucinations, Allergy/Immunology: Negative for hives, rash, and allergies, Endocrine: Negative for neck swelling, polydipsia, polyuria, polyphagia, and marked weight changes, Hematologic/Lymphatic: Negative for swollen nodes, abnormal bleeding, and unusual bruising. 06:30 Respiratory: Positive for wheezing, expiratory, of the right middle lobe, left lower lobe, right lower lobe, left posterior lower lobe, right posterior middle lobe and right posterior lower lobe. Exam: 06:30 Constitutional: This is a well developed, well nourished patient who is awake, alert, kav and in no acute distress. Head/Face: Normocephalic, atraumatic. Eyes: Pupils equal round and reactive to light, extra-ocular motions intact. Lids and lashes normal. Conjunctiva and sclera are non-icteric and not injected. Cornea within normal limits. Periorbital areas with no swelling, redness, or edema. ENT: Nares patent. No nasal discharge, no septal abnormalities noted. Tympanic membranes are normal and external auditory canals are clear. Oropharynx with no redness, swelling, or masses, exudates, or evidence of obstruction, uvula midline. Mucous membranes moist. Neck: Trachea midline, no thyromegaly or masses palpated, and no cervical lymphadenopathy. Supple, full range of motion without nuchal rigidity, or vertebral point tenderness. No Meningismus. Chest/axilla: Normal chest wall appearance and motion. Nontender with no deformity. No lesions are appreciated. Cardiovascular: Regular rate and rhythm with a normal S1 and S2. No gallops, murmurs, or rubs. Normal PMI, no JVD. No pulse deficits. Abdomen/GI: Soft, non-tender, with normal bowel sounds. No distension or tympany. No guarding or rebound. No evidence of tenderness throughout. Back: No spinal tenderness. No costovertebral tenderness. Full range of motion. Skin: Warm, dry with normal turgor. Normal color with no rashes, no lesions, and no evidence of cellulitis. MS/ Extremity: Pulses equal, no cyanosis. Neurovascular intact. Full, normal range of motion. Neuro: Awake and alert, GCS 15, oriented to person, place, time, and situation. Cranial nerves II-XII grossly intact. Motor strength 5/5 in all extremities. Sensory grossly intact. Cerebellar exam normal. Normal gait. Psych: Awake, alert, with orientation to person, place and time. Behavior, mood, and affect are within normal limits. 06:30 Respiratory: mild respiratory distress is noted, Respirations: no acute changes, Breath sounds: wheezing: expiratory that is mild, is heard diffusely, is heard in the right middle lobe, left lower lobe, right lower lobe, left posterior lower lobe, right posterior middle lobe and right posterior lower lobe, Respiratory rate: 18 Vital Signs: 05:43 BP 165 / 110; Pulse 88; Resp 20; Temp 99.4; Pulse Ox 97% on R/A; Weight 94.35 kg; aa1 Height 5 ft. 4 in. (162.56 cm); Pain 9/10; 06:00 BP 174 / 99; Pulse 79; Resp 19 S; Pulse Ox 96% on R/A; bs1 08:20 BP 135 / 77; Pulse 85; Resp 22 S; Pulse Ox 93% on R/A; Pain 9/10; aa5 08:51 BP 144 / 83; Pulse 84; Resp 16; Pulse Ox 98% on Nebulizer Mask; jl7 05:43 Body Mass Index 35.70 (94.35 kg, 162.56 cm) aa1 MDM: 06:07 Medical screening is not applicable. [facility] 06:30 Data reviewed: vital signs, nurses notes. [facility] 08:08 ED course: patient c/o headache pain. tylenol ordered for headache pain however, [facility] patient refused the tylenol as "...she has been taking it all night long with no improvement in headache. Morphine 4mg ordered. she is also c/o continued nausea r/t "...the breathing treatment". Zofran 4 mg ordered.. 11/02 06:13 Order name: Urine Dipstick--Ancillary (enter results) 11/02 08:11 Interpretation: Within normal limits. [facility] 11/02 06:19 Order name: CBC with Diff; Complete Time: 08:42 [facility] 11/02 08:03 Interpretation: Normal except: WBC 8.5; HGB 10.4; HCT 32.2; MCV 70.6; MCH 22.8; RDW kav 18.9; MPV 7.5; ADE% 90.1; LYM% 4.0; LYMA 0.3. 11/02 06:19 Order name: CMP; Complete Time: 08:02 [facility] 11/02 08:43 Interpretation: Normal except: CL 99; BUN 26; GFR 62; SGOT 50; GLOB 3.8. [facility] 11/02 06:22 Order name: CXR XRAY; Complete Time: 08:42 [facility] 11/02 08:42 Interpretation: No acute disease. kav 11/02 08:26 Order name: Manual Differential; Complete Time: 08:42 ED[facility] 11/02 08:42 Interpretation: Normal except: SEGS 91; LYM 7. 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): Tylenol 650 mg PO once bs1 06:41 Drug: DuoNeb (3:1) (2.5 mg - 0.5 mg) 3 ml Route: Nebulizer; bs1 08:00 Follow up: Response: No adverse reaction; Wheezing unchanged jl7 07:00 Drug: Valium 1 mg Route: IVP; Site: right forearm; bs1 08:00 Follow up: Response: No adverse reaction; No change in condition jl7 07:08 Drug: SOLU-Medrol 125 mg Route: IVP; Site: right forearm; bs1 08:47 Follow up: Response: No adverse reaction jl7 07:08 Drug: hydrALAZINE 10 mg Route: IV; Rate: bolus; Site: right forearm; bs1 08:00 Follow up: Response: Blood pressure is lowered; IV Status: Completed infusion jl7 07:26 Drug: NS 0.9% 1000 ml Route: IV; Rate: 125 ml/hr; Site: right forearm; jl7 09:00 Follow up: IV Status: Completed infusion jl7 08:01 Drug: Valium 2 mg Route: IVP; Site: right forearm; jl7 08:56 Follow up: Response: No adverse reaction; Marked relief of symptoms jl7 08:09 Drug: morphine 4 mg Route: IVP; Site: right forearm; aa5 08:56 Follow up: Response: No adverse reaction; Pain is decreased jl7 08:09 Drug: Zofran 4 mg Route: IVP; Site: right forearm; aa5 08:56 Follow up: Response: No adverse reaction; Nausea is decreased jl7 08:10 CANCELLED (Duplicate Order): morphine 4 mg IVP once kav 08:10 CANCELLED (Duplicate Order): Zofran 4 mg IVP once; over 2 minutes kav 08:26 Drug: DuoNeb (3:1) (2.5 mg - 0.5 mg) 3 ml Route: Nebulizer; aa5 08:57 Follow up: Response: No adverse reaction; Wheezing diminished jl7 Disposition: 11/02/17 08:43 Discharged to Home. Impression: Chronic obstructive pulmonary disease with acute lower respiratory infection, Anxiety disorder, unspecified, Essential (primary) hypertension. - Condition is Stable. - Discharge Instructions: Chronic Obstructive Pulmonary Disease, Hypertension, [id number]-[id number], Panic Attacks, [id number], Generalized Anxiety Disorder. - Prescriptions for Advair Diskus 500- 50 mcg/Dose Inhalation Disk with Device - inhale 1 puff by INHALATION route every 12 hours; 1 packet. - Medication Reconciliation Form, Thank You Letter, Antibiotic Education, Prescription Opioid Use form. - Follow up: Lele Rahman; When: Tomorrow; Reason: Recheck today's complaints, Continuance of care, Re-evaluation by your physician. Follow up: Moody Sosa MD; When: 1 - 2 days; Reason: Recheck today's complaints, Continuance of care, Re-evaluation by your physician. - Problem is chronic. - Symptoms have improved. - Notes: continue current prescription abx therapy: zithromx and steroid: medrol dose pack you are being subscibed and advair inhaler. please use this as directed f/u with pulmononology/dr. ortiz in 1-2 days for further evaluation and treatment of dx: copd do not smoke Addendum: 11/06/2017 19:01 Co-signature as Attending Physician, Hans Dawson MD. estiven valencia Signatures: Dispatcher [employer] Emely Mehta, RN RN aa1 Hans Dawson MD MD pkKrysta Dixon, HEAD OF VISUAL MERCHANDISING HEAD OF VISUAL MERCHANDISING Lindsay Hollisn RN RN aa5 Jesica Ramos RN RN jl7 Cinthia Hernandez RN RN bs1 Corrections: (The following items were deleted from the chart) 11/02 08:10 08:09 morphine 4 mg IVP once ordered. aa5 kav 08:10 08:09 Zofran 4 mg IVP once; over 2 minutes ordered. aa5 kav 08:43 08:02 CL 99; BUN 26; GFR 62; SGOT 50. kav kav 08:47 08:43 11/02/2017 08:43 Discharged to Home. Impression: Chronic obstructive pulmonary kav disease with acute lower respiratory infection; Anxiety disorder, unspecified; Essential (primary) hypertension. Condition is Stable. Forms are Medication Reconciliation Form, Thank You Letter, Antibiotic Education, Prescription Opioid Use. Follow up: Lele Rahman; When: Tomorrow; Reason: Recheck today's complaints, Continuance of care, Re-evaluation by your physician. Problem is chronic. Symptoms have improved. kav 09:02 08:47 11/02/2017 08:43 Discharged to Home. Impression: Chronic obstructive pulmonary jl7 disease with acute lower respiratory infection; Anxiety disorder, unspecified; Essential (primary) hypertension. Condition is Stable. Discharge Instructions: Chronic Obstructive Pulmonary Disease, Hypertension, [id number], Panic Attacks, [id number]-Dldf, Generalized Anxiety Disorder. Prescriptions for Advair Diskus 500-50 mcg/Dose Inhalation Disk with Device - inhale 1 puff by INHALATION route every 12 hours; 1 packet. and Forms are Medication Reconciliation Form, Thank You Letter, Antibiotic Education, Prescription Opioid Use. Follow up: Lele Rahman; When: Tomorrow; Reason: Recheck today's complaints, Continuance of care, Re-evaluation by your physician. Follow up: Moody Sosa; When: 1 - 2 days; Reason: Recheck today's complaints, Continuance of care, Re-evaluation by your physician. Problem is chronic. Symptoms have improved. kav
--- NOTE | 2017-11-02 08:44 | ER ---
Nurse's Notes [facility] Name: Marjan Fleming Age: 62 yrs Sex: Female : 1955 Arrival Date: 11/02/2017 Time: 05:30 Bed 16 Private MD: Lele Rahman H Diagnosis: Chronic obstructive pulmonary disease with acute lower respiratory infection;Anxiety disorder, unspecified;Essential (primary) hypertension Presentation: 11/02 05:40 Presenting complaint: Patient states: SOB x 4 days. States she was seen here the past 2 aa1 days and has been taking steroids and breathing tx but still coughing and having SOB. Transition of care: patient was not received from another setting of care. Onset of symptoms was October 29, 2017. Risk Assessment: Do you want to hurt yourself or someone else? Patient reports no desire to harm self or others. Initial Sepsis Screen: Does the patient meet any 2 criteria? No. Patient's initial sepsis screen is negative. Does the patient have a suspected source of infection? No. Patient's initial sepsis screen is negative. Care prior to arrival: None. 05:40 Method Of Arrival: Ambulatory aa1 05:40 Acuity: BLAYNE 3 aa1 Triage Assessment: 05:43 General: Appears in no apparent distress. comfortable, Behavior is calm, cooperative, aa1 appropriate for age. Historical: - Allergies: 05:43 Bactrim DS; aa1 05:43 Codeine; aa1 05:43 metoclopramide HCl; aa1 05:43 Stadol; aa1 - Home Meds: 05:43 Ativan 2 mg Oral tab 2 tabs 2 times per day for Anxiety [Active]; Descovy 200-25 mg aa1 Oral tab 1 tab once daily [Active]; hydralazine 25 mg Oral tab 1 tab 2 times per day for Hypertension [Active]; issentress BID twice a day [Active]; lisinopril 40 mg Oral tab 1 tab twice a day for Hypertension [Active]; Nexium 40 mg Oral cpDR 1 cap once daily [Active]; Norvasc 10 mg Oral tab 1 tab once daily for Hypertension [Active]; proair as needed [Active]; sertraline 100 mg Oral tab 2 tabs once daily [Active]; Spiriva daily [Active]; Toprol XL 100 mg Oral Tb24 1 tab twice a day for Hypertension [Active]; Triamterene-Hydrochlorothiazid Oral 1 cap once daily [Active]; - PMHx: 05:43 Anxiety; Bipolar disorder; Chronic pain; COPD; esophageal varices; Hepatitis; HIV; aa1 Hypertension; Migraines; Panic Attacks; - PSHx: 05:43 Appendectomy; Cholecystectomy; Shoulder repair; aa1 - Immunization history:: Flu vaccine is up to date. - Social history:: Smoking status: Patient uses tobacco products, smokes one-half pack cigarettes per day. - Ebola Screening: : No symptoms or risks identified at this time. - Family history:: not pertinent. - Hospitalizations: : No recent hospitalization is reported. - History obtained from: Old record and Nursing Staff. Screenin:02 Abuse screen: Denies threats or abuse. Denies injuries from another. Nutritional bs1 screening: No deficits noted. Tuberculosis screening: No symptoms or risk factors identified. Fall Risk None identified. Assessment: 05:42 General: Appears uncomfortable, unkempt, Behavior is cooperative, anxious. Pain: bs1 Complains of pain in chest when coughing. Neuro: Level of Consciousness is awake, alert, obeys commands, Reports headache in entire. Cardiovascular: Denies chest pain, Heart tones S1 S2 present Capillary refill < 3 seconds Patient's skin is warm and dry. Rhythm is regular. Respiratory: Reports shortness of breath at rest on exertion cough that is non-productive, Airway is patent Trachea midline Respiratory effort is even, unlabored, Respiratory pattern is regular, symmetrical, Breath sounds with wheezes bilaterally. GI: No signs and/or symptoms were reported involving the gastrointestinal system. : Reports burning with urination, incontinence. EENT: No signs and/or symptoms were reported regarding the EENT system. Derm: Skin is intact, is fragile, is thin, Skin is pink, warm \\T\\ dry. Musculoskeletal: Circulation, motion, and sensation intact. Capillary refill < 3 seconds, Range of motion: intact in all extremities. 06:18 Reassessment: Verbal order from FIG WASHER Elias to give tylenol 650mg po x1 and patient may bs1 have ice chips. 07:09 Reassessment: Report given to ASHLEY Mooney. bs1 07:10 Reassessment: Patient and/or family updated on plan of care and expected duration. Pain jl7 level reassessed. Patient is alert, oriented x 3, equal unlabored respirations, skin warm/dry/pink. Respiratory: Reports shortness of breath cough that is non-productive, Airway is patent Respiratory effort is even, unlabored, Respiratory pattern is regular, symmetrical, Breath sounds with wheezes bilaterally. 08:00 Reassessment: pt reports "I can't breathe, I need something to calm down. The other jl7 medication didn't help at all. The breathing treatment was making me feel nauseous." Provider notified, see MAR for orders. 08:48 Reassessment: Pt will be discharged once breathing treatment is finished Patient states jl7 feeling better. Patient states symptoms have improved. Vital Signs: 05:43 BP 165 / 110; Pulse 88; Resp 20; Temp 99.4; Pulse Ox 97% on R/A; Weight 94.35 kg; aa1 Height 5 ft. 4 in. (162.56 cm); Pain 9/10; 06:00 BP 174 / 99; Pulse 79; Resp 19 S; Pulse Ox 96% on R/A; bs1 08:20 BP 135 / 77; Pulse 85; Resp 22 S; Pulse Ox 93% on R/A; Pain 9/10; aa5 08:51 BP 144 / 83; Pulse 84; Resp 16; Pulse Ox 98% on Nebulizer Mask; jl7 05:43 Body Mass Index 35.70 (94.35 kg, 162.56 cm) aa1 ED Course: 05:30 Patient arrived in ED. ds1 05:31 Lele Rahman DO is Private Physician. ds1 05:41 Triage completed. aa1 05:42 Cinthia Hernandez, ASHLEY is Primary Nurse. bs1 05:43 Arm band placed on right wrist. Patient placed in an exam room, on a stretcher. aa1 06:01 Patient has correct armband on for positive identification. Placed in gown. Bed in low bs1 position. Call light in reach. Side rails up X 1. Pulse ox on. NIBP on. 06:07 Krysta Griffin FNP is PHCP. kav 06:07 Hans Dawson MD is Attending Physician. kav 06:41 Radiology exam delayed due to IV insertion attempt and/or patient not having jb2 appropriate IV at this time. USING ULTRASOUND TO FIND VEIN, WILL ATTEMPT AGAIN LATER. 06:55 Inserted saline lock: 24 gauge in right forearm, using aseptic technique. Blood bs1 collected. 07:10 X-ray completed. Portable x-ray completed in exam room. Patient tolerated procedure jb2 well. 07:10 CXR XRAY In Process Unspecified. EDMS 07:52 Primary Nurse role handed off by Cinthia Hernandez RN jl7 07:52 Jesica Ramos RN is Primary Nurse. jl7 08:43 Lele Rahman DO is Referral Physician. kav 08:47 Moody Sosa MD is Referral Physician. kav 09:01 No provider procedures requiring assistance completed. IV discontinued, intact, jl7 bleeding controlled, No redness/swelling at site. Pressure dressing applied. Administered Medications: Discontinued: NS 0.9% 1000 ml IV at 125 ml/hr continuous 06:26 Not Given (Patient Refused; informed FIG WASHER): Tylenol 650 mg PO once bs1 06:41 Drug: DuoNeb (3:1) (2.5 mg - 0.5 mg) 3 ml Route: Nebulizer; bs1 08:00 Follow up: Response: No adverse reaction; Wheezing unchanged jl7 07:00 Drug: Valium 1 mg Route: IVP; Site: right forearm; bs1 08:00 Follow up: Response: No adverse reaction; No change in condition jl7 07:08 Drug: SOLU-Medrol 125 mg Route: IVP; Site: right forearm; bs1 08:47 Follow up: Response: No adverse reaction jl7 07:08 Drug: hydrALAZINE 10 mg Route: IV; Rate: bolus; Site: right forearm; bs1 08:00 Follow up: Response: Blood pressure is lowered; IV Status: Completed infusion jl7 07:26 Drug: NS 0.9% 1000 ml Route: IV; Rate: 125 ml/hr; Site: right forearm; jl7 09:00 Follow up: IV Status: Completed infusion jl7 08:01 Drug: Valium 2 mg Route: IVP; Site: right forearm; jl7 08:56 Follow up: Response: No adverse reaction; Marked relief of symptoms jl7 08:09 Drug: morphine 4 mg Route: IVP; Site: right forearm; aa5 08:56 Follow up: Response: No adverse reaction; Pain is decreased jl7 08:09 Drug: Zofran 4 mg Route: IVP; Site: right forearm; aa5 08:56 Follow up: Response: No adverse reaction; Nausea is decreased jl7 08:10 CANCELLED (Duplicate Order): morphine 4 mg IVP once kav 08:10 CANCELLED (Duplicate Order): Zofran 4 mg IVP once; over 2 minutes kav 08:26 Drug: DuoNeb (3:1) (2.5 mg - 0.5 mg) 3 ml Route: Nebulizer; aa5 08:57 Follow up: Response: No adverse reaction; Wheezing diminished jl7 Outcome: 08:43 Discharge ordered by MD. kav 09:01 Discharged to home ambulatory. jl7 09:01 Condition: stable 09:01 Discharge instructions given to patient, Instructed on discharge instructions, follow up and referral plans. medication usage, Demonstrated understanding of instructions, follow-up care, medications. 09:02 Patient left the ED. jl7 Signatures: Dispatcher [employer] EDMS Emely Das RN RN aa1 Krysta Griffin, MILK PICKUP TRUCK DRIVER MILK PICKUP TRUCK DRIVER Stephen Nolasco jb2 Lainey Monson ds1 Lindsay Schulz RN RN aa5 Jesica Ramos RN RN jl7 Cinthia Hernandez RN RN bs1 Corrections: (The following items were deleted from the chart) 06:01 05:42 Neuro: Level of Consciousness is awake, alert, obeys commands, bs1 bs1 06:01 05:42 Respiratory: Reports shortness of breath at rest on exertion cough that is bs1 non-productive, Airway is patent Trachea midline Respiratory effort is even, unlabored, Respiratory pattern is regular, symmetrical, Breath sounds are clear bilaterally. bs1
[2017-11-02 09:15] VITALS: TEMP 99.4
[2017-11-02 09:18] VITALS: BP 144/83; O2SAT 98
[2017-11-02 10:06] LABS: Urine Blood TRACE (NEG); Urine Glucose NEGATIVE (NEG); Urine Protein NEGATIVE (NEG)
== END 2017-11-02 09:02 | disposition home or self-care (01) ==
LOC: ER 05:30
DX: J44.0 Chronic obstructive pulmonary disease with (acute) lower respiratory infection (principal); J22 Unspecified acute lower respiratory infection; F41.9 Anxiety disorder, unspecified; I10 Essential (primary) hypertension; F17.210 Nicotine dependence, cigarettes, uncomplicated
CPT/HCPCS: 36415; 71045; 80053; 81003; 85025; 94640; 96361; 96365; 96375; 99284; J0360; J2405; J2930; J3360 ×2; J7030

== ENCOUNTER 2017-11-07 12:11 | Emergency (ER) | payer OTHER ==
--- OUTSIDE RECORDS SUMMARY | 2017-11-07 12:13 | XMS REPORT | Clinical Summary ---
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 Family History Medical History Relation Name Comments Hypertension Father Kidney disease Father Relation Name Status Comments Father Mother Social History Tobacco Use Types Packs/Day Years Used Date Current Every Day Smoker 0.5 Smokeless Tobacco: Never Used Tobacco Cessation: Ready to Quit: Yes Alcohol Use Drinks/Week oz/Week Comments Yes rare Sex Assigned at Date Recorded Not on file Last Filed Vital Signs Not on file Plan of Treatment Health Maintenance Due Date Last Done Comments CERVICAL CANCER SCREENING 01/22/1977 BREAST CANCER SCREENING 01/22/2006 COLON CANCER SCREENING 01/22/2006 SHINGRIX VACCINE (#1) 01/22/2006 ZOSTER VACCINE 2016 INFLUENZA VACCINE 12/21/2017 Implants Implanted Type Area Kitchen Steward/Stewardess Device Expiration Model / Identifier Date Serial / Lot Versa-Dial/Comp Ti Std Taper Used W/25mm Glenoid Basplate - [id number] N/ A: N/A [employer] 01/22/2026 [id number] / Implanted: Qty: 1 on 10/19/2016 by Austin Bowles MD IMPLANT / DEVICES [id number] 41mm Comprehensive Reverse Shoulder Glenosphere Ba - [id number] IPM N/A: N/A [employer] 11/21/2023 [id number] / Implanted: Qty: 1 on 10/19/2016 by Austin Bowles MD IMPLANT / DEVICES [id number] Arcom Xl 44-41 Std +3 Humeral Brg - [id number] IPM Left: [employer] 07/20 XL [id number] / Implanted: Qty: 1 on 10/19/2016 by Austin Bowles MD IMPLANT Shoulder / DEVICES [id number] Humeral Tray With Locking Ring +5 Left: [employer] 03/31/2026 [id number] / Implanted: Qty: 1 on 10/19/2016 by Austin Bowles MD Shoulder / [id number] Results Not on fileafter 11/06/2016 Insurance Payer Benefit Plan / Group Subscriber ID Type Phone Address [facility] MEDICARE [facility] DUAL COMPLETE MCR xxxxxxxxx O [facility] MEDICAID [facility] COMM STAR+ BRIA xxxxxxxxx HMO
[2017-11-07] MEDS ORDERED: ALBUTEROL 2.5 MG/3 ML NEB SOL ONE (12:48)
[2017-11-07] MEDS ORDERED: IPRATROPIUM BROM 0.5MG/2.5ML ONE (12:48)
[2017-11-07] MEDS ORDERED: predniSONE 20 MG TAB ONE (12:48)
--- NOTE | 2017-11-07 13:14 | RAD REPORT ---
EXAM DESCRIPTION: RAD - Chest Pa And Lat (2 Views) - 11/07/2017 1:08 pm CLINICAL HISTORY: COPD Chest pain. COMPARISON: Chest Single View dated 11/02/2017; Chest Pa And Lat (2 Views) dated 11/01/2017; Chest Sin gle View dated 11/01/2017; Chest Single View dated 08/10/2017 FINDINGS: The lungs are clear. The heart is normal in size. Bilateral shoulder arthroplasties noted. Small hiatal hernia. IMPRESSION: No acute or concerning finding suspected. Small hiatal hernia.
--- NOTE | 2017-11-07 13:44 | ER ---
Nurse's Notes [facility] Name: Marjan Fleming Age: 62 yrs Sex: Female : 1955 Arrival Date: 11/07/2017 Time: 12:16 Bed 14 Private MD: Diagnosis: Chronic obstructive pulmonary disease with (acute) exacerbation Presentation: 11/07 12:16 Presenting complaint: Patient states: hx of COPD, about 4-5 days ago, i started hj coughing (productive), when i cough, my R lower rib hurts; reports chills; states "i feel i have wheezing". Transition of care: patient was not received from another setting of care. Onset of symptoms was November 07, 2017. Risk Assessment: Do you want to hurt yourself or someone else? Patient reports no desire to harm self or others. Initial Sepsis Screen: Does the patient meet any 2 criteria? RR > 20 per min. Yes Does the patient have a suspected source of infection? Yes:. Care prior to arrival: None. 12:16 Method Of Arrival: Ambulatory 12:16 Acuity: BLAYNE 3 hj Triage Assessment: 12:19 General: Appears in no apparent distress. uncomfortable, Behavior is cooperative, hj appropriate for age, anxious. Respiratory: Reports labored breathing Onset: The symptoms/episode began/occurred 4-5 days ago;, the patient has moderate shortness of breath. Historical: - Allergies: 12:18 Bactrim DS; hj 12:18 Codeine; hj 12:18 metoclopramide HCl; hj 12:18 Stadol; hj - Home Meds: 12:18 Ativan 2 mg Oral tab 2 tabs 2 times per day for Anxiety [Active]; Descovy 200-25 mg hj Oral tab 1 tab once daily [Active]; hydralazine 25 mg Oral tab 1 tab 2 times per day for Hypertension [Active]; issentress BID twice a day [Active]; lisinopril 40 mg Oral tab 1 tab twice a day for Hypertension [Active]; Nexium 40 mg Oral cpDR 1 cap once daily [Active]; Norvasc 10 mg Oral tab 1 tab once daily for Hypertension [Active]; proair as needed [Active]; sertraline 100 mg Oral tab 2 tabs once daily [Active]; Spiriva daily [Active]; Toprol XL 100 mg Oral Tb24 1 tab twice a day for Hypertension [Active]; Triamterene-Hydrochlorothiazid Oral 1 cap once daily [Active]; - PMHx: 12:18 Anxiety; Bipolar disorder; Chronic pain; COPD; esophageal varices; HIV; Hepatitis; hj Hypertension; Panic Attacks; Migraines; - PSHx: 12:18 Appendectomy; Cholecystectomy; Shoulder repair; hj - Immunization history:: Adult Immunizations up to date. - Social history:: Smoking status: Patient/guardian denies using tobacco, Patient/guardian denies using alcohol, Smoking status: Patient uses tobacco products, smokes one pack cigarettes per day. pt states "i quit smoking 3 days ago, its just not worth it". - Ebola Screening: : Patient negative for fever greater than or equal to 101.5 degrees Fahrenheit, and additional compatible Ebola Virus Disease symptoms Patient denies exposure to infectious person Patient denies travel to an Ebola-affected area in the 21 days before illness onset. Screenin:19 Abuse screen: Denies threats or abuse. Denies injuries from another. Nutritional hj screening: No deficits noted. Tuberculosis screening: No symptoms or risk factors identified. Fall Risk None identified. Assessment: 12:19 Pain: Complains of pain in right breast. Cardiovascular: Rhythm is. Respiratory: Airway hj is patent Respiratory effort is labored, Respiratory pattern is regular, symmetrical, Breath sounds with wheezes. 12:25 Reassessment: pt states "I am HIV+ too". tw2 12:27 General: Appears in no apparent distress. obese, Behavior is appropriate for age. Pain: tw2 Complains of pain in right breast. Neuro: Level of Consciousness is awake, alert, obeys commands, Oriented to person, place, time, situation. Cardiovascular: Heart tones S1 S2 Capillary refill < 3 seconds Patient's skin is warm and dry. Respiratory: Airway is patent Respiratory effort is even, unlabored, Respiratory pattern is regular, symmetrical, Breath sounds with wheezes bilaterally. GI: No signs and/or symptoms were reported involving the gastrointestinal system. Abdomen is round non-distended, obese, Bowel sounds present X 4 quads. : No signs and/or symptoms were reported regarding the genitourinary system. EENT: No signs and/or symptoms were reported regarding the EENT system. Derm: No signs and/or symptoms reported regarding the dermatologic system. Skin is intact, is healthy with good turgor, Skin temperature is warm. Musculoskeletal: Range of motion: intact in all extremities. 13:25 Reassessment: Patient appears in no apparent distress at this time. No changes from tw2 previously documented assessment. Patient and/or family updated on plan of care and expected duration. Pain level reassessed. Patient is alert, oriented x 3, equal unlabored respirations, skin warm/dry/pink. 13:30 Reassessment: pt director of enterprise applications light states "do you know if they are going to put an iv in me tw2 and if i am going to get something for pain and anxiety", provider notified. 13:43 Reassessment: Pt called director of enterprise applications light and stated "I need to see Dr Kolb, I don't sv want to see that other doctor anymore because I need something for my anxiety and for my pain in my chest and Dr Kolb knows about my HIV stuff." Informed Dr Hudson of pt's request. Jacquelin RAMIREZ CN informed of pt's request. Vital Signs: 12:20 BP 128 / 84; Pulse 65; Resp 18; Temp 98.4(O); Pulse Ox 98% on R/A; Weight 95.25 kg; hj Height 5 ft. 4 in. (162.56 cm); Pain 9/10; 13:24 BP 155 / 90; Pulse 59; Resp 17; Pulse Ox 98% on R/A; tw2 12:20 Body Mass Index 36.04 (95.25 kg, 162.56 cm) ED Course: 12:16 Patient arrived in ED. hj 12:17 Triage completed. hj 12:19 Arm band placed on right wrist. hj 12:19 Patient has correct armband on for positive identification. hj 12:23 Karen Tovar, ASHLEY is Primary Nurse. tw2 12:32 Albert Hudson MD is Attending Physician. gs 12:53 EKG done, by engineering technical analyst. reviewed by Albert Hudson MD. at1 13:06 X-ray completed. Patient tolerated procedure well. Patient moved back from radiology. mh1 13:06 XRAY Chest Pa And Lat (2 Views) In Process Unspecified. EDMS 13:48 No provider procedures requiring assistance completed. Patient did not have IV access tw2 during this emergency room visit. Administered Medications: 12:49 Drug: Albuterol 2.5 mg Route: Inhalation; tw2 13:30 Follow up: Response: No adverse reaction; Wheezing diminished tw2 12:49 Drug: AtroVENT Aerosol 0.5 mg Route: Inhalation; tw2 13:30 Follow up: Response: No adverse reaction; Wheezing diminished tw2 12:49 Drug: predniSONE 40 mg Route: PO; tw2 13:30 Follow up: Response: No adverse reaction tw2 Outcome: 13:43 Discharge ordered by . 13:48 Discharged to home ambulatory. tw2 13:48 Condition: stable 13:48 Discharge instructions given to patient, Instructed on discharge instructions, follow up and referral plans. medication usage, Demonstrated understanding of instructions, follow-up care, medications, Prescriptions given X 2. 13:49 Patient left the ED. tw2 Signatures: Dispatcher [employer] EDMS Leyda Santamaria RN ASHLEY Gracia Concepcion mh1 Danielle jin, classroom instructional aide EKG Tat1 Jeremy Patel RN RN hj Wise, Tara, RN RN tw2 Albert Hudson MD MD Corrections: (The following items were deleted from the chart) 12:22 12:16 Presenting complaint: Patient states: hx of COPD, about 4-5 days ago, i started hj coughing (productive), when i cough, my R lower rib hurts; reports chills; hj 12:22 12:20 Pulse 65bpm; Resp 18bpm; Pulse Ox 97% RA; Temp 98.4F Oral; 95.25 kg; Height 5 ft. hj 4 in.; BMI: 36.0; Pain 9/10; hj
--- NOTE | 2017-11-07 13:44 | EDPHYS ---
Physician Documentation [facility] Name: Marjan Fleming Age: 62 yrs Sex: Female : 1955 Arrival Date: 11/07/2017 Time: 12:16 Bed 14 Private MD: ED Physician Albert Hudson HPI: 11/07 14:06 This 62 yrs old Female presents to ER via Ambulatory with complaints of gs Breathing Difficulty. 14:06 The patient or guardian reports cough, difficulty breathing. Onset: The gs symptoms/episode began/occurred 2 day(s) ago. Severity of symptoms: At their worst the symptoms were moderate, in the emergency department the symptoms have improved, moderately. Modifying factors: the symptoms are aggravated by damp environment, smoke. Associated signs and symptoms: Pertinent positives: chest pain, with cough. The patient has experienced similar episodes in the past, chronically. Historical: - Allergies: 12:18 Bactrim DS; hj 12:18 Codeine; hj 12:18 metoclopramide HCl; hj 12:18 Stadol; hj - Home Meds: 12:18 Ativan 2 mg Oral tab 2 tabs 2 times per day for Anxiety [Active]; Descovy 200-25 mg hj Oral tab 1 tab once daily [Active]; hydralazine 25 mg Oral tab 1 tab 2 times per day for Hypertension [Active]; issentress BID twice a day [Active]; lisinopril 40 mg Oral tab 1 tab twice a day for Hypertension [Active]; Nexium 40 mg Oral cpDR 1 cap once daily [Active]; Norvasc 10 mg Oral tab 1 tab once daily for Hypertension [Active]; proair as needed [Active]; sertraline 100 mg Oral tab 2 tabs once daily [Active]; Spiriva daily [Active]; Toprol XL 100 mg Oral Tb24 1 tab twice a day for Hypertension [Active]; Triamterene-Hydrochlorothiazid Oral 1 cap once daily [Active]; - PMHx: 12:18 Anxiety; Bipolar disorder; Chronic pain; COPD; esophageal varices; HIV; Hepatitis; hj Hypertension; Panic Attacks; Migraines; - PSHx: 12:18 Appendectomy; Cholecystectomy; Shoulder repair; hj - Immunization history:: Adult Immunizations up to date. - Social history:: Smoking status: Patient/guardian denies using tobacco, Patient/guardian denies using alcohol, Smoking status: Patient uses tobacco products, smokes one pack cigarettes per day. pt states "i quit smoking 3 days ago, its just not worth it". - Ebola Screening: : Patient negative for fever greater than or equal to 101.5 degrees Fahrenheit, and additional compatible Ebola Virus Disease symptoms Patient denies exposure to infectious person Patient denies travel to an Ebola-affected area in the 21 days before illness onset. ROS: 14:06 Constitutional: Negative for chills, fever. gs 14:06 Abdomen/GI: Negative for nausea and vomiting. 14:06 All other systems are negative. Exam: 14:06 Head/Face: Normocephalic, atraumatic. Eyes: Pupils equal round and reactive to light, gs extra-ocular motions intact. Lids and lashes normal. Conjunctiva and sclera are non-icteric and not injected. Cornea within normal limits. Periorbital areas with no swelling, redness, or edema. ENT: Nares patent. No nasal discharge, no septal abnormalities noted. Tympanic membranes are normal and external auditory canals are clear. Oropharynx with no redness, swelling, or masses, exudates, or evidence of obstruction, uvula midline. Mucous membranes moist. Neck: Trachea midline, no thyromegaly or masses palpated, and no cervical lymphadenopathy. Supple, full range of motion without nuchal rigidity, or vertebral point tenderness. No Meningismus. Chest/axilla: Normal chest wall appearance and motion. Nontender with no deformity. No lesions are appreciated. Cardiovascular: Regular rate and rhythm with a normal S1 and S2. No gallops, murmurs, or rubs. Normal PMI, no JVD. No pulse deficits. Abdomen/GI: Soft, non-tender, with normal bowel sounds. No distension or tympany. No guarding or rebound. No evidence of tenderness throughout. Back: No spinal tenderness. No costovertebral tenderness. Full range of motion. Skin: Warm, dry with normal turgor. Normal color with no rashes, no lesions, and no evidence of cellulitis. MS/ Extremity: Pulses equal, no cyanosis. Neurovascular intact. Full, normal range of motion. Neuro: Awake and alert, GCS 15, oriented to person, place, time, and situation. Cranial nerves II-XII grossly intact. Motor strength 5/5 in all extremities. Sensory grossly intact. Cerebellar exam normal. Normal gait. 14:06 Constitutional: The patient appears alert, awake. 14:06 ECG was reviewed by the Attending Physician. 14:06 Respiratory: the patient does not display signs of respiratory distress, Respirations: normal, Breath sounds: wheezing: that is moderate, is heard diffusely. Vital Signs: 12:20 BP 128 / 84; Pulse 65; Resp 18; Temp 98.4(O); Pulse Ox 98% on R/A; Weight 95.25 kg; hj Height 5 ft. 4 in. (162.56 cm); Pain 9/10; 13:24 BP 155 / 90; Pulse 59; Resp 17; Pulse Ox 98% on R/A; tw2 12:20 Body Mass Index 36.04 (95.25 kg, 162.56 cm) hj MDM: 12:44 Patient medically screened. 14:06 Differential Diagnosis: Bronchitis Pneumonia Other copd. Data reviewed: vital signs, nurses notes. Response to treatment: the patient's symptoms have markedly improved after treatment, and as a result, I will discharge patient. ED course: pt is chronic pain pt and demanding iv pain medication and anxiety medication. i informed her i would not be able to do this. she is prescribed ativan po which she did not take today, i encouraged her to take her meds.. 11/07 12:45 Order name: XRAY Chest Pa And Lat (2 Views); Complete Time: 13:22 11/07 12:45 Order name: EKG; Complete Time: 12:45 18 12:45 Order name: EKG - Nurse/Tech; Complete Time: 12:49 gs EC: Rate is 60 beats/min. CT interval is normal. QRS interval is normal. T waves are gs Flattened. No ST changes noted. Clinical impression: NSR w/ Non-specific ST/T Changes. Interpreted by me. Administered Medications: 12:49 Drug: Albuterol 2.5 mg Route: Inhalation; tw2 13:30 Follow up: Response: No adverse reaction; Wheezing diminished tw2 12:49 Drug: AtroVENT Aerosol 0.5 mg Route: Inhalation; tw2 13:30 Follow up: Response: No adverse reaction; Wheezing diminished tw2 12:49 Drug: predniSONE 40 mg Route: PO; tw2 13:30 Follow up: Response: No adverse reaction tw2 Disposition: 11/07/17 13:43 Discharged to Home. Impression: Chronic obstructive pulmonary disease with (acute) exacerbation. - Condition is Stable. - Discharge Instructions: Chronic Obstructive Pulmonary Disease. - Prescriptions for Prednisone 20 mg Oral Tablet - take 2 tablet by ORAL route once daily for 5 days; 10 tablet. Albuterol Sulfate 90 mcg/actuation - inhale 1-2 puff by INHALATION route every 4-6 hours; 1 Inhaler. - Medication Reconciliation Form, Thank You Letter, Antibiotic Education, Prescription Opioid Use form. - Follow up: Private Physician; When: 2 - 3 days; Reason: Re-evaluation by your physician. Signatures: Dispatcher [employer] EDMS Jeremy Patel RN RN hj Karen Tovar RN RN tw2 Albert Hudson MD MD Corrections: (The following items were deleted from the chart) 13:49 13:43 11/07/2017 13:43 Discharged to Home. Impression: Chronic obstructive pulmonary tw2 disease with (acute) exacerbation. Condition is Stable. Forms are Medication Reconciliation Form, Thank You Letter, Antibiotic Education, Prescription Opioid Use. Follow up: Private Physician; When: 2 - 3 days; Reason: Re-evaluation by your physician. gs
[2017-11-07 13:58] VITALS: TEMP 98.4; O2SAT 98
[2017-11-07 13:59] VITALS: BP 155/90
--- NOTE | 2017-11-07 20:36 | EKG ---
Test Date: 2017-11-07 Test Time: 12:50:02 Factory Machine Computer Operator: STEPHANIE MEASUREMENT RESULTS: Intervals: Rate: 60 PA: 162 QRSD: 78 QT: 454 QTc: 454 [place]: P: 31 PA: 162 QRS: -5 T: -6 INTERPRETIVE STATEMENTS: Normal sinus rhythm Voltage criteria for left ventricular hypertrophy Nonspecific ST and T wave abnormality Abnormal ECG Compared to ECG 11/01/2017 14:08:11 ST (T wave) deviation now present Electronically Signed On 11-07-17 20:35:58 CDT by Rich Grissom
== END 2017-11-07 13:49 | disposition home or self-care (01) ==
LOC: ER 12:11
DX: J44.1 Chronic obstructive pulmonary disease with (acute) exacerbation (principal); K75.9 Inflammatory liver disease, unspecified; I10 Essential (primary) hypertension; F17.210 Nicotine dependence, cigarettes, uncomplicated; Z88.6 Allergy status to analgesic agent; Z88.1 Allergy status to other antibiotic agents; Z88.8 Allergy status to other drugs, medicaments and biological substances; Z21 Asymptomatic human immunodeficiency virus [HIV] infection status
CPT/HCPCS: 71046; 93005; 99284; J7512

== ENCOUNTER 2018-01-02 01:11 | Emergency (ER) | payer OTHER ==
--- OUTSIDE RECORDS SUMMARY | 2018-01-02 01:14 | XMS REPORT | Clinical Summary ---
:1955 Author Organization [facility] Address [address] [place] [address] Care Team Providers Name Role Phone Asked, [...] INFLUENZA VACCINE 12/21/2017 Implants Implanted Type Area Custodian Athletic Equipment Device Expiration Model / Identifier Date Serial / Lot Versa-Dial/Comp Ti Std Taper Used W/25mm Glenoid Basplate - [id number] N/ A: N/A [employer] 01/22/2026 [id number] / Implanted: Qty: 1 on 10/19/2016 by Austin Bowles MD IMPLANT / DEVICES [id number] 41mm Comprehensive Reverse Shoulder Glenosphere Ba - [id number] N/A: N/A [employer] 11/21/2023 [id number] / Implanted: Qty: 1 on 10/19/2016 by Austin Bowles MD IMPLANT / DEVICES [id number] Arcom Xl 44-41 Std +3 Humeral Brg - [id number] Left: [employer] 07/20 XL [id number] / Implanted: Qty: 1 on 10/19/2016 by Austin Bowles MD IMPLANT Shoulder / DEVICES [id number] Humeral Tray With Locking Ring +5 Left: [employer] 03/31/2026 [id number] / Implanted: Qty: 1 on 10/19/2016 by Austin Bowles MD Shoulder / [id number] Results Not on fileafter 01/01/2017 Insurance Payer Benefit Plan / Group Subscriber ID Type Phone Address [facility] D[employer]PLETE MCR xxxxxxxxx O [facility] STAR+ BRIA xxxxxxxxx HMO
[2018-01-02] MEDS ORDERED: TETANUS & DIPHTHERIA TOX,ADULT 0.5 ML VIAL ONE (01:46)
[2018-01-02] MEDS ORDERED: IBUPROFEN 400 MG TAB ONE (01:46)
--- NOTE | 2018-01-02 03:32 | ER ---
Nurse's Notes [facility] Name: Marjan Fleming Age: 62 yrs Sex: Female : 1955 Arrival Date: 01/02/2018 Time: :13 Bed 17 Private MD: Lele Rahman H Diagnosis: Pain in right knee;Other slipping, tripping and stumbling and falls;Pain in left shoulder Presentation: 01/02 01:34 Presenting complaint: Patient states: "I fell flat on my face and I think I hurt my lp1 shoulder and knee "; Complaint of pain to right knee and left shoulder, small abrasion to right wrist; States she tripped over her own feet yesterday afternoon. Transition of care: patient was not received from another setting of care. Onset of symptoms was January 01, 2018 at 16:30. Risk Assessment: Do you want to hurt yourself or someone else? Patient reports no desire to harm self or others. Initial Sepsis Screen: Does the patient meet any 2 criteria? No. Patient's initial sepsis screen is negative. Does the patient have a suspected source of infection? No. Patient's initial sepsis screen is negative. Care prior to arrival: None. 01:34 Method Of Arrival: Wheelchair lp1 01:34 Acuity: BLAYNE 4 lp1 Historical: - Allergies: 01:39 Bactrim DS; lp1 01:39 Codeine; lp1 01:39 metoclopramide HCl; lp1 01:39 Stadol; lp1 - Home Meds: 01:39 Ativan 2 mg Oral tab 2 tabs 2 times per day for Anxiety [Active]; Descovy 200-25 mg lp1 Oral tab 1 tab once daily [Active]; hydralazine 25 mg Oral tab 1 tab 2 times per day for Hypertension [Active]; issentress BID twice a day [Active]; lisinopril 40 mg Oral tab 1 tab twice a day for Hypertension [Active]; Nexium 40 mg Oral cpDR 1 cap once daily [Active]; Norvasc 10 mg Oral tab 1 tab once daily for Hypertension [Active]; proair as needed [Active]; sertraline 100 mg Oral tab 2 tabs once daily [Active]; Spiriva daily [Active]; Toprol XL 100 mg Oral Tb24 1 tab twice a day for Hypertension [Active]; Triamterene-Hydrochlorothiazid Oral 1 cap once daily [Active]; - PMHx: 01:39 Anxiety; Bipolar disorder; Chronic pain; COPD; esophageal varices; Hepatitis; HIV; lp1 Hypertension; Migraines; Panic Attacks; - PSHx: 01:39 Cholecystectomy; Shoulder prosthetic; lp1 - Immunization history:: Adult Immunizations up to date. - Social history:: Smoking status: Patient uses tobacco products, smokes one-half pack cigarettes per day. - Ebola Screening: : No symptoms or risks identified at this time. Screenin:40 Abuse screen: Denies threats or abuse. Denies injuries from another. Nutritional lp1 screening: No deficits noted. Tuberculosis screening: No symptoms or risk factors identified. Fall Risk Total Hauser Fall Scale indicates High Risk Score (45 or more points). Fall prevention measures have been instituted. Side Rails Up X 2. Assessment: 01:56 General: Appears in no apparent distress. uncomfortable, Behavior is cooperative, bs1 anxious. Pain: Complains of pain in bilateral knees/left shoulder Pain does not radiate. Neuro: Level of Consciousness is awake, alert, obeys commands, Oriented to person, place, time, situation, Appropriate for age. Neuro: Reports dizziness. Cardiovascular: Denies chest pain, shortness of breath, Heart tones S1 S2 present. Respiratory: Airway is patent. GI: No signs and/or symptoms were reported involving the gastrointestinal system. : No signs and/or symptoms were reported regarding the genitourinary system. EENT: No signs and/or symptoms were reported regarding the EENT system. Derm: Skin has skin tears on bilateral knees Skin is pink, warm \\T\\ dry. normal. Musculoskeletal: Circulation, motion, and sensation intact. Capillary refill < 3 seconds, Range of motion: limited in bilateral knees. 03:00 Reassessment: Patient appears in no apparent distress at this time. Patient and/or bs1 family updated on plan of care and expected duration. Pain level reassessed. Patient is alert, oriented x 3, equal unlabored respirations, skin warm/dry/pink. 03:40 Reassessment: Patient appears in no apparent distress at this time. No changes from bs1 previously documented assessment. Patient and/or family updated on plan of care and expected duration. Pain level reassessed. Patient is alert, oriented x 3, equal unlabored respirations, skin warm/dry/pink. Patient states understanding of discharge instructions/ POC. Vital Signs: 01:40 BP 133 / 70; Pulse 73; Resp 18; Temp 98.5(O); Pulse Ox 96% on R/A; Weight 92.99 kg; lp1 Height 5 ft. 4 in. (162.56 cm); Pain 10/10; 02:40 BP 132 / 72; Pulse 67; Resp 16; Pulse Ox 95% on R/A; bs1 03:40 BP 135 / 80; Pulse 70; Resp 17 S; Temp 98(T); Pulse Ox 95% on R/A; Pain 3/10; bs1 01:40 Body Mass Index 35.19 (92.99 kg, 162.56 cm) lp1 Crystal Coma Score: 01:40 Eye Response: spontaneous(4). Verbal Response: oriented(5). Motor Response: obeys lp1 commands(6). Total: 15. ED Course: 01:13 Patient arrived in ED. es 01:13 Lele Rahman DO is Private Physician. es 01:24 Justus Neil PA is PHCP. cp 01:24 Albert Hudson MD is Attending Physician. cp 01:36 Triage completed. lp1 01:38 Cinthia Hernandez, ASHLEY is Primary Nurse. bs1 01:40 Arm band placed on left wrist. lp1 01:57 Patient has correct armband on for positive identification. Bed in low position. Call bs1 light in reach. Side rails up X 1. Pulse ox on. NIBP on. 02:13 X-ray completed. Portable x-ray completed in exam room. Patient tolerated procedure kw well. 02:14 XRAY Knee RIGHT 3 view In Process Unspecified. EDMS 02:14 XRAY Shoulder LEFT 2 view In Process Unspecified. EDMS 03:34 No provider procedures requiring assistance completed. Patient did not have IV access bs1 during this emergency room visit. 03:35 Knee immobilizer applied on right knee. Sling applied to left arm. Wound care: located bs1 on bilateral knees, applied triple antibiotic ointment and bandaid, patient tolerated. was cleaned with soap and water. Administered Medications: 02:06 Drug: Tetanus-Diphtheria Toxoid Adult 0.5 ml {Auto Claims Adjuster: 5min [employer]. Exp: bs1 02/09/2020. Lot #: [id number]. } Route: IM; Site: left deltoid; 03:50 Follow up: Response: No adverse reaction bs1 02:07 Drug: Ibuprofen 800 mg Route: PO; bs1 03:50 Follow up: Response: No adverse reaction bs1 Outcome: 03:32 Discharge ordered by . nakia 03:40 Condition: stable bs1 03:[facility], patient calling to pick her up bs1 03:49 Discharge instructions given to patient, Instructed on discharge instructions, follow up and referral plans. medication usage, Demonstrated understanding of instructions, follow-up care, medications, Prescriptions given X 1. 03:52 Patient left the ED. bs1 Signatures: Dispatcher [employer] Indigo Boo Kimberlee kw Pena, Laura, RN RN lp1 Justus Neil PA PA cp Salazar, Brittany, RN RN bs1 Corrections: (The following items were deleted from the chart) 01:57 01:56 Musculoskeletal: Circulation, motion, and sensation intact. Capillary refill < 3 bs1 seconds, Range of motion: intact in all extremities, bs1 03:51 01:56 Derm: Skin is intact, Skin is pink, warm \\T\\ dry. normal, bs1 bs1
--- NOTE | 2018-01-02 03:32 | EDPHYS ---
Physician Documentation [facility] Name: Marjan Fleming Age: 62 yrs Sex: Female : 1955 Arrival Date: 01/02/2018 Time: 01:13 Bed 17 Private MD: Lele Rahman H ED Physician Albert Hudson HPI: 01/02 01:40 This 62 yrs old Female presents to ER via Wheelchair with complaints of Fall cp Injury. 01:40 Details of fall: The patient fell from an upright position, while walking. cp 01:40 Onset: The symptoms/episode began/occurred yesterday. Associated injuries: The patient cp sustained right knee, abrasion, painful injury, left shoulder, painful injury. Historical: - Allergies: 01:39 Bactrim DS; lp1 01:39 Codeine; lp1 01:39 metoclopramide HCl; lp1 01:39 Stadol; lp1 - Home Meds: 01:39 Ativan 2 mg Oral tab 2 tabs 2 times per day for Anxiety [Active]; Descovy 200-25 mg lp1 Oral tab 1 tab once daily [Active]; hydralazine 25 mg Oral tab 1 tab 2 times per day for Hypertension [Active]; issentress BID twice a day [Active]; lisinopril 40 mg Oral tab 1 tab twice a day for Hypertension [Active]; Nexium 40 mg Oral cpDR 1 cap once daily [Active]; Norvasc 10 mg Oral tab 1 tab once daily for Hypertension [Active]; proair as needed [Active]; sertraline 100 mg Oral tab 2 tabs once daily [Active]; Spiriva daily [Active]; Toprol XL 100 mg Oral Tb24 1 tab twice a day for Hypertension [Active]; Triamterene-Hydrochlorothiazid Oral 1 cap once daily [Active]; - PMHx: 01:39 Anxiety; Bipolar disorder; Chronic pain; COPD; esophageal varices; Hepatitis; HIV; lp1 Hypertension; Migraines; Panic Attacks; - PSHx: 01:39 Cholecystectomy; Shoulder prosthetic; lp1 - Immunization history:: Adult Immunizations up to date. - Social history:: Smoking status: Patient uses tobacco products, smokes one-half pack cigarettes per day. - Ebola Screening: : No symptoms or risks identified at this time. ROS: 01:45 Eyes: Negative for injury, pain, redness, and discharge. cp 01:45 Constitutional: Negative for body aches, chills, poor PO intake. 01:45 Cardiovascular: Negative for chest pain, edema, palpitations. cp 01:45 Respiratory: Negative for cough, shortness of breath, wheezing. 01:45 Abdomen/GI: Negative for abdominal pain. 01:45 MS/extremity: Positive for pain, of the left shoulder and right knee, Negative for paresthesias. 01:45 Neuro: Negative for altered mental status, headache, loss of consciousness, syncope, near syncope, weakness. 01:45 All other systems are negative. Exam: 01:50 Constitutional: The patient appears in no acute distress, alert, awake, cp non-diaphoretic, non-toxic, well developed, well nourished. 01:50 Head/Face: Normocephalic, atraumatic. cp 01:50 Eyes: Periorbital structures: appear normal, Pupils: equal, round, and reactive to light and accomodation, Extraocular movements: intact throughout, Conjunctiva: normal, no exudate, no injection, Lids and lashes: appear normal, bilaterally. 01:50 ENT: External ear(s): are unremarkable, Nose: is normal, Mouth: Lips: moist, Oral mucosa: moist, Posterior pharynx: is normal, airway is patent. 01:50 Neck: C-spine: vertebral tenderness, is not appreciated, crepitus, is not appreciated, ROM/movement: is normal, is supple, without pain, no range of motions limitations, no nuchal rigidity. 01:50 Chest/axilla: Inspection: normal, Palpation: is normal, no crepitus, no tenderness. 01:50 Cardiovascular: Rate: normal, Rhythm: regular. 01:50 Respiratory: the patient does not display signs of respiratory distress, Respirations: normal, no use of accessory muscles, no retractions, no splinting, no tachypnea, labored breathing, is not present, Breath sounds: are clear throughout, no decreased breath sounds, no stridor, no wheezing. 01:50 Abdomen/GI: Exam negative for discomfort, distension, guarding, Inspection: abdomen appears normal. 01:50 Back: ROM is normal, vertebral tenderness, is not appreciated. 01:50 Musculoskeletal/extremity: Extremities: grossly normal except: noted in the right knee: pain, swelling, tenderness, noted in the left shoulder: pain, no evidence of decreased ROM. 01:50 Skin: injury, abrasion(s), small abrasion noted, of the anterior aspect bilateral knees. 01:50 Neuro: Orientation: to person, place \T\ time. Mentation: lucid, able to follow commands, Cerebellar function: is grossly normal, Motor: moves all fours, strength is normal, Sensation: no obvious gross deficits. Vital Signs: 01:40 BP 133 / 70; Pulse 73; Resp 18; Temp 98.5(O); Pulse Ox 96% on R/A; Weight 92.99 kg; lp1 Height 5 ft. 4 in. (162.56 cm); Pain 10/10; 02:40 BP 132 / 72; Pulse 67; Resp 16; Pulse Ox 95% on R/A; bs1 03:40 BP 135 / 80; Pulse 70; Resp 17 S; Temp 98(T); Pulse Ox 95% on R/A; Pain 3/10; bs1 01:40 Body Mass Index 35.19 (92.99 kg, 162.56 cm) lp1 Crystal Coma Score: 01:40 Eye Response: spontaneous(4). Verbal Response: oriented(5). Motor Response: obeys lp1 commands(6). Total: 15. Procedures: 03:30 Splinting: Splint applied to left shoulder using sling, applied by nurse. Examined by cp me, post splint application: neurovascular intact, Patient tolerated well. 03:30 Splinting: Splint applied to right knee using knee immobilizer, applied by nurse. cp Examined by me, post splint application: neurovascular intact, Patient tolerated well. MDM: 01:28 Patient medically screened. cp 02:00 Differential diagnosis: abrasion, contusion, fracture, laceration, multiple trauma. cp 03:30 Data reviewed: vital signs, nurses notes, radiologic studies, plain films. cp 03:30 Test interpretation: by ED physician or midlevel provider: plain radiologic studies. cp Counseling: I had a detailed discussion with the patient and/or guardian regarding: the historical points, exam findings, and any diagnostic results supporting the discharge/admit diagnosis, radiology results, the need for outpatient follow up, a orthopedic surgeon, to return to the emergency department if symptoms worsen or persist or if there are any questions or concerns that arise at home. 01/02 01:37 Order name: XRAY Knee RIGHT 3 view cp 01/02 01:37 Order name: XRAY Shoulder LEFT 2 view cp 01/02 02:53 Order name: Wound dressing: please clean and dress abrasions; Complete Time: 03:34 cp 01/02 02:53 Order name: Knee Immobilizer: right knee; Complete Time: 03:34 cp 01/02 02:53 Order name: Sling; Complete Time: 03:34 cp Administered Medications: 02:06 Drug: Tetanus-Diphtheria Toxoid Adult 0.5 ml {Contact Center Analyst: [employer]. Exp: bs1 02/09/2020. Lot #: [id number]. } Route: IM; Site: left deltoid; 03:50 Follow up: Response: No adverse reaction bs1 02:07 Drug: Ibuprofen 800 mg Route: PO; bs1 03:50 Follow up: Response: No adverse reaction bs1 Disposition: 04:41 Co-signature as Attending Physician, Albert Hudson MD. Disposition: 01/02/18 03:32 Discharged to Home. Impression: Pain in right knee, Other slipping, tripping and stumbling and falls, Pain in left shoulder. - Condition is Stable. - Discharge Instructions: Knee Immobilizer, Shoulder Pain, Knee Pain, Shoulder Range of Motion Exercises. - Prescriptions for Naprosyn 500 mg Oral Tablet - take 1 tablet by ORAL route 2 times per day take with food; 20 tablet. - Medication Reconciliation Form, Thank You Letter, Antibiotic Education, Prescription Opioid Use form. - Follow up: Private Physician; When: 2 - 3 days; Reason: Recheck today's complaints. - Problem is new. - Symptoms have improved. Signatures: Dispatcher [employer] EDCO Ora Portillo RN RN lp1 Justus Neil PA PA Albert Hudson MD MD Cinthia Hernandez RN RN bs1 Corrections: (The following items were deleted from the chart) 03:52 03:32 01/02/2018 03:32 Discharged to Home. Impression: Pain in right knee; Other bs1 slipping, tripping and stumbling and falls; Pain in left shoulder. Condition is Stable. Forms are Medication Reconciliation Form, Thank You Letter, Antibiotic Education, Prescription Opioid Use. Follow up: Private Physician; When: 2 - 3 days; Reason: Recheck today's complaints. Problem is new. Symptoms have improved. cp :01/01 01:45 Constitutional: Negative for body aches, chills, fever, poor PO intake, cp cp 01/02 23:01/01 01:45 Cardiovascular: Negative for chest pain, edema, palpitations, cp cp 01/02 23:01/01 01:45 Neck: Negative for pain with movement, pain at rest, stiffness, cp cp 01/02 23:01/01 01:45 Eyes: Negative for injury, pain, redness, and discharge, cp cp 01/02 23:01/01 01:45 Abdomen/GI: Negative for abdominal pain, nausea, vomiting, and diarrhea, cp cp 01/02 23:01/01 01:45 MS/extremity: Positive for pain, of the left shoulder and right knee, cp Negative for paresthesias, cp 01/02 23:01/01 01:45 Neuro: Negative for altered mental status, headache, loss of consciousness, cp syncope, near syncope, weakness, cp 01/02 23:01/01 01:45 All other systems are negative, cp cp
[2018-01-02 03:59] VITALS: O2SAT 95
[2018-01-02 04:00] VITALS: BP 135/80; TEMP 98
--- NOTE | 2018-01-02 08:02 | RAD REPORT ---
EXAM DESCRIPTION: RAD - Shoulder Left 2 View - 01/02/2018 2:14 am CLINICAL HISTORY: Left shoulder pain status post fall FINDINGS: No fracture or dislocation is seen. Postsurgical changes of a left shoulder arthroplasty are seen. Prosthesis is in good position without evidence of loosening of
--- NOTE | 2018-01-02 08:05 | RAD REPORT ---
EXAM DESCRIPTION: RAD - Knee Right 3 View - 01/02/2018 2:14 am CLINICAL HISTORY: Left knee pain status post fall FINDINGS: No fracture or dislocation is seen. If the patient continues have symptoms to suggest an occult fracture, ligamentous or meniscal injury then an MRI would be recommended.
== END 2018-01-02 03:52 | disposition home or self-care (01) ==
LOC: ER 01:11
DX: M25.561 Pain in right knee (principal); I10 Essential (primary) hypertension; J44.9 Chronic obstructive pulmonary disease, unspecified; W01.0XXA Fall on same level from slipping, tripping and stumbling without subsequent striking against object, initial encounter; Y93.01 Activity, walking, marching and hiking; Y92.9 Unspecified place or not applicable; F41.9 Anxiety disorder, unspecified; Z88.1 Allergy status to other antibiotic agents; Z88.5 Allergy status to narcotic agent; Z88.8 Allergy status to other drugs, medicaments and biological substances; Z21 Asymptomatic human immunodeficiency virus [HIV] infection status; Z23 Encounter for immunization
CPT/HCPCS: 90714; 99284

== ENCOUNTER 2018-03-10 05:34 | Emergency (ER) | payer OTHER ==
--- OUTSIDE RECORDS SUMMARY | 2018-03-10 05:37 | XMS REPORT | Clinical Summary ---
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 Family History Medical History Relation Name [...] INFLUENZA VACCINE 12/21/2017 Implants Implanted Type Area Lining Mechanic Device Expiration Model / Identifier Date Serial / Lot Versa-Dial/Comp Ti Std Taper Used W/25mm Glenoid Basplate - [id number] IPM N/ A: N/A [employer] 01/22/2026 [id number] / Implanted: Qty: 1 on 10/19/2016 by Austin Bowles MD IMPLANT / DEVICES [id number] 41mm Comprehensive Reverse Shoulder Glenosphere Ba - [id number] [id number] N/A: N/A [employer] 11/21/2023 [id number] / Implanted: Qty: 1 on 10/19/2016 by Austin Bowles MD IMPLANT / DEVICES [id number] Arcom Xl 44-41 Std +3 Humeral Brg - [id number] IPM Left: [employer] 07/20 XL [id number] / Implanted: Qty: 1 on 10/19/2016 by Austin Bowles MD IMPLANT Shoulder / DEVICES [id number] Humeral Tray With Locking Ring +5 Left: [employer] 03/31/2026 [id number] / Implanted: Qty: 1 on 10/19/2016 by Austin Bowles MD Shoulder / [id number] Results Not on fileafter 03/09/2017 Insurance Payer Benefit Plan / Group Subscriber ID Type Phone Address [facility] MEDICARE [facility] DUAL COMPLETE MCR xxxxxxxxx O [facility] MEDICAID [facility] COMM STAR+ BRIA xxxxxxxxx HMO
[2018-03-10] MEDS ORDERED: METHYLPREDNISOLONE 125 MG INJ ONE (05:59)
[2018-03-10] MEDS ORDERED: NA CHLORIDE 0.9% 1,000 ML ONE (06:00)
[2018-03-10] MEDS ORDERED: ALBUTEROL 2.5 MG/3 ML NEB SOL ONE (06:00)
[2018-03-10] MEDS ORDERED: IPRATROPIUM BROM 0.5MG/2.5ML ONE (06:00)
[2018-03-10] MEDS ORDERED: predniSONE 20 MG TAB ONE (06:00)
[2018-03-10] MEDS ORDERED: Levofloxacin 750mg IV 750 MG/150 ML BAG IV ONE (06:06)
[2018-03-10 06:33] LABS: Absolute Monocytes 0.5 K/uL (0.1-1.3); Basophils % 0.6 % (0-1.3); Eosinophils % 0.9 % (0-4.4); Hematocrit 31.7 % (36.0-45.0); Lymphocytes % 15.1 % (15.3-44.8); MCH 21.9 pg (27.0-35.0); MCV 69.3 fL (80-100); MPV 7.7 fL (7.6-11.3); Monocytes % 7.9 % (3.3-12.3); RBC Red Blood Cell Count 4.57 M/uL (3.86-4.86)
[2018-03-10 06:34] LABS: Protime INR 0.94
[2018-03-10 06:40] LABS: ALT/SGPT 47 U/L (12-78); AST/SGOT 56 U/L (15-37); Albumin 3.3 g/dL (3.4-5.0); Alkaline Phosphatase 85 U/L (45-117); BUN Blood Urea Nitrogen 21 mg/dL (7-18); Bicarbonate 27 mmol/L (21-32); Bilirubin Direct < 0.1 mg/dL (0-0.2); Bilirubin Total 0.3 mg/dL (0.2-1.0); Glucose Level 111 mg/dL (74-106); Lipase 226 U/L (73-393); Magnesium 2.3 mg/dL (1.8-2.4); NT PRO-BNP 420 pg/mL (<125); Protein, Total 7.5 g/dL (6.4-8.2); Sodium Level 140 mmol/L (136-145); Troponin (Emerg Dept Use Only) < 0.02 ng/mL (0.0-0.045)
[2018-03-10] MEDS ORDERED: ONDANSETRON 4 MG/2 ML VIAL ONE (06:42)
[2018-03-10] MEDS ORDERED: MORPHINE 4 MG/ML SYR ONE (06:42)
[2018-03-10 06:58] LABS: Urine Blood NEGATIVE (NEG); Urine Glucose NEGATIVE (NEG); Urine Protein NEGATIVE (NEG); Urine Specific Gravity 1.025 (1.005-1.030)
--- NOTE | 2018-03-10 07:06 | EDPHYS ---
Physician Documentation [facility] Name: Marjan Fleming Age: 63 yrs Sex: Female : 1955 Arrival Date: 03/10/2018 Time: 05:37 Bed 19 Private MD: ED Physician Justus Kolb HPI: 03/10 05:47 This 63 yrs old Female presents to ER via Ambulatory with complaints of thomas Cough, Breathing Difficulty, Chills, Sore Throat. 05:47 The patient or guardian reports cough, difficulty breathing. Onset: The thomas symptoms/episode began/occurred 2 day(s) ago. Severity of symptoms: At their worst the symptoms were mild, moderate, in the emergency department the symptoms are unchanged. Modifying factors: The symptoms are alleviated by. Associated signs and symptoms: The patient has no apparent associated signs or symptoms. The patient has not experienced similar symptoms in the past. Historical: - Allergies: 05:49 Bactrim DS; bb 05:49 Codeine; bb 05:49 metoclopramide HCl; bb 05:49 Stadol; bb - Home Meds: 05:49 Descovy 200-25 mg Oral tab 1 tab once daily [Active]; issentress BID twice a day bb [Active]; lisinopril 40 mg Oral tab 1 tab twice a day for Hypertension [Active]; Nexium 40 mg Oral cpDR 1 cap once daily [Active]; Norvasc 10 mg Oral tab 1 tab once daily for Hypertension [Active]; proair as needed [Active]; Toprol XL 100 mg Oral Tb24 1 tab twice a day for Hypertension [Active]; sertraline 100 mg Oral tab 2 tabs once daily [Active]; - PMHx: 05:49 Anxiety; Bipolar disorder; Chronic pain; COPD; esophageal varices; Hepatitis; HIV; bb Hypertension; Migraines; Panic Attacks; - PSHx: 05:49 Cholecystectomy; bilateral shoulder replacement; Appendectomy; bb - Immunization history:: Adult Immunizations up to date, Adult Immunizations up to date. - Social history:: Smoking status: Patient uses tobacco products, smokes one-half pack cigarettes per day, Patient uses alcohol, occasionally. Patient/guardian denies using street drugs. - Family history:: not pertinent. - Ebola Screening: : No symptoms or risks identified at this time. ROS: 05:48 Constitutional: Negative for fever, chills, and weight loss, Eyes: Negative for injury, thomsa pain, redness, and discharge, ENT: Negative for injury, pain, and discharge, Neck: Negative for injury, pain, and swelling, Abdomen/GI: Negative for abdominal pain, nausea, vomiting, diarrhea, and constipation, Back: Negative for injury and pain, : Negative for injury, bleeding, discharge, and swelling, MS/Extremity: Negative for injury and deformity, Skin: Negative for injury, rash, and discoloration, Neuro: Negative for headache, weakness, numbness, tingling, and seizure, Psych: Negative for depression, anxiety, suicide ideation, homicidal ideation, and hallucinations, Allergy/Immunology: Negative for hives, rash, and allergies, Endocrine: Negative for neck swelling, polydipsia, polyuria, polyphagia, and marked weight changes, Hematologic/Lymphatic: Negative for swollen nodes, abnormal bleeding, and unusual bruising. 05:48 Cardiovascular: Positive for chest pain, with cough. 05:48 Respiratory: Positive for cough, shortness of breath, wheezing, expiratory. Exam: 05:48 Constitutional: This is a well developed, well nourished patient who is awake, alert, thomas and in no acute distress. Head/Face: Normocephalic, atraumatic. Eyes: Pupils equal round and reactive to light, extra-ocular motions intact. Lids and lashes normal. Conjunctiva and sclera are non-icteric and not injected. Cornea within normal limits. Periorbital areas with no swelling, redness, or edema. ENT: Nares patent. No nasal discharge, no septal abnormalities noted. Tympanic membranes are normal and external auditory canals are clear. Oropharynx with no redness, swelling, or masses, exudates, or evidence of obstruction, uvula midline. Mucous membranes moist. Neck: Trachea midline, no thyromegaly or masses palpated, and no cervical lymphadenopathy. Supple, full range of motion without nuchal rigidity, or vertebral point tenderness. No Meningismus. Chest/axilla: Normal chest wall appearance and motion. Nontender with no deformity. No lesions are appreciated. Cardiovascular: Regular rate and rhythm with a normal S1 and S2. No gallops, murmurs, or rubs. Normal PMI, no JVD. No pulse deficits. Abdomen/GI: Soft, non-tender, with normal bowel sounds. No distension or tympany. No guarding or rebound. No evidence of tenderness throughout. Back: No spinal tenderness. No costovertebral tenderness. Full range of motion. Skin: Warm, dry with normal turgor. Normal color with no rashes, no lesions, and no evidence of cellulitis. MS/ Extremity: Pulses equal, no cyanosis. Neurovascular intact. Full, normal range of motion. Neuro: Awake and alert, GCS 15, oriented to person, place, time, and situation. Cranial nerves II-XII grossly intact. Motor strength 5/5 in all extremities. Sensory grossly intact. Cerebellar exam normal. Normal gait. Psych: Awake, alert, with orientation to person, place and time. Behavior, mood, and affect are within normal limits. 05:48 Respiratory: mild respiratory distress is noted, Respirations: normal, Breath sounds: decreased breath sounds, that are mild, rhonchi, are not appreciated, wheezing: expiratory 06:31 Cardiovascular: Rate: normal, Rhythm: regular, Pulses: Pulses are 4+ in bilateral thomas radial, brachial, femoral, popliteal, posterior tibial and and dorsalis pedis arteries.. Heart sounds: normal, Edema: is not appreciated, JVD: is not appreciated. 06:31 Musculoskeletal/extremity: DVT Exam: No signs of deep vein thrombosis. no pain, no swelling, no tenderness, negative Homans' sign noted on exam, no appreciated bluish discoloration, no erythema, no increased warmth. Vital Signs: 05:49 BP 161 / 89; Pulse 80; Resp 18 S; Temp 98.1(O); Pulse Ox 97% on R/A; Weight 92.53 kg bb (R); Height 5 ft. 4 in. (162.56 cm) (R); Pain 9/10; 07:06 BP 131 / 73; Pulse 73; Resp 16; Pulse Ox 100% on R/A; em 08:03 BP 123 / 64; Pulse 75; Resp 18; Pulse Ox 95% on R/A; em 08:24 BP 132 / 93; Pulse 99; Resp 19; Temp 98.3; Pulse Ox 97% ; Pain 9/10; tt1 05:49 Body Mass Index 35.02 (92.53 kg, 162.56 cm) MDM: 05:39 Patient medically screened. [facility] 06:30 Data reviewed: vital signs, nurses notes, lab test result(s), EKG, radiologic studies, thomas plain films. 03/10 05:46 Order name: Basic Metabolic Panel [facility] 03/10 05:46 Order name: CBC with Diff [facility] 03/10 05:46 Order name: LFT's [facility] 03/10 05:46 Order name: Magnesium; Complete Time: 06:50 [facility] 03/10 05:46 Order name: NT PRO-BNP; Complete Time: 06:50 [facility] 03/10 05:46 Order name: PT-INR; Complete Time: 06:50 [facility] 03/10 05:46 Order name: Troponin (emerg Dept Use Only); Complete Time: 06:50 [facility] 03/10 05:46 Order name: Lipase; Complete Time: 06:50 [facility] 03/10 05:46 Order name: Blood Culture Adult (2) [facility] 03/10 05:46 Order name: Procalcitonin; Complete Time: 06:50 [facility] 03/10 05:46 Order name: Urine Culture [facility] 03/10 05:47 Order name: Basic Metabolic Panel; Complete Time: 06:50 [facility] 03/10 05:47 Order name: Liver (Hepatic) Function; Complete Time: 06:50 [facility] 03/10 06:56 Order name: Urine Dipstick--Ancillary (enter results); Complete Time: 07:02 mn 03/10 05:46 Order name: XRAY Chest (1 view) [facility] 03/10 05:46 Order name: EKG; Complete Time: 05:47 [facility] 03/10 05:46 Order name: Cardiac monitoring; Complete Time: 06:45 [facility] 03/10 05:46 Order name: EKG - Nurse/Tech; Complete Time: 06:46 [facility] 03/10 05:46 Order name: IV Saline Lock; Complete Time: 06:46 [facility] 03/10 06:56 Order name: Urine --Ancillary (enter results); Complete Time: 07:02 mn 03/10 06:57 Order name: CBC Smear Scan [facility] 03/10 05:46 Order name: Labs collected and sent; Complete Time: 06:46 [facility] 03/10 05:46 Order name: O2 Per Protocol; Complete Time: 06:46 [facility] 03/10 05:46 Order name: O2 Sat Monitoring; Complete Time: 06:46 [facility] 03/10 05:46 Order name: Urine Dipstick-Ancillary (obtain specimen); Complete Time: 07:05 thomas Administered Medications: 06:00 Drug: Albuterol - atroVENT (3:1) (2.5 mg - 0.5 mg) 3 ml Route: Nebulizer; cc3 07:04 Follow up: Response: No adverse reaction; Marked relief of symptoms em 06:00 Drug: predniSONE 20 mg Route: PO; cc3 07:04 Follow up: Response: No adverse reaction em 06:10 Drug: SOLU-Medrol 125 mg Route: IVP; Site: right forearm; cc3 07:31 Follow up: Response: No adverse reaction em 06:15 Drug: NS 0.9% 500 ml Route: IV; Rate: bolus; Site: right forearm; cc3 07:04 Follow up: IV Status: Completed infusion; IV Intake: 500ml em 06:15 Drug: LevaQUIN 750 mg Volume: 150 ml; Route: IVPB; Infused Over: 90 mins; Site: right cc3 forearm; 08:29 Follow up: Response: No adverse reaction; IV Status: Completed infusion; IV Intake: em 150ml 06:32 Drug: Zofran 4 mg Route: IVP; Site: right forearm; cc3 07:05 Follow up: Response: No adverse reaction em 06:36 Drug: morphine 2 mg Route: IVP; Site: right forearm; cc3 07:05 Follow up: Response: No adverse reaction em 07:03 Drug: NS 0.9% 1000 ml Route: IV; Rate: 125 ml/hr; Site: right forearm; em 08:28 Follow up: IV Status: Order to discontinue infusion; IV Intake: 100ml em 07:20 Drug: TORadol 30 mg Route: IVP; Site: right forearm; ss 08:02 Follow up: Response: No adverse reaction em Disposition: 03/10/18 07:04 Discharged to Home. Impression: Acute upper respiratory infection, unspecified, Chronic obstructive pulmonary disease with (acute) exacerbation, Human immunodeficiency virus [HIV] disease, Bronchitis, not specified as acute or chronic. - Condition is Stable. - Discharge Instructions: Acute Bronchitis, Adult, Chronic Obstructive Pulmonary Disease, How to Use an Inhaler, Upper Respiratory Infection, Adult, Cool Mist Vaporizer, Chronic Obstructive Pulmonary Disease Exacerbation, Chronic Obstructive Pulmonary Disease, [id number], Cough, Adult, Chronic Obstructive Pulmonary Disease Exacerbation, [id number]. - Prescriptions for Levaquin 750 mg Oral Tablet - take 1 tablet by ORAL route once daily for 6 days; 7 tablet. Albuterol Sulfate 2.5 mg /3 mL (0.083 %) Inhalation Solution for Nebulization - inhale 1 unit by NEBULIZATION route every 8 hours As needed; 1 box. Prednisone 20 mg Oral Tablet - take 2 tablet by ORAL route once daily for 5 days; 10 tablet. Albuterol Sulfate 90 mcg/actuation - inhale 1-2 puff by INHALATION route every 4-6 hours; 1 Inhaler. Bromfed DM 2- 30-10 mg/5 mL Oral syrup - take 10 milliliter by ORAL route every 6 hours; 160 milliliter. - Medication Reconciliation Form, Thank You Letter, Antibiotic Education, Prescription Opioid Use form. - Follow up: Private Physician; When: 2 - 3 days; Reason: Recheck today's complaints, Continuance of care, Re-evaluation by your physician. Follow up: Moody Sosa; When: 2 - 3 days; Reason: Recheck today's complaints, Re-evaluation by your physician. - Problem is new. - Symptoms have improved. Signatures: Dispatcher [employer] EDMS Justus Kolb MD MD cha Munoz, Edgar, BILLING REPRESENTATIVE BILLING REPRESENTATIVE em Dee Kennedy, RN RN Sandra Gonzalez RN RN ss Diane Ogden cc3 Corrections: (The following items were deleted from the chart) 08:29 07:04 03/10/2018 07:04 Discharged to Home. Impression: Acute upper respiratory em infection, unspecified; Chronic obstructive pulmonary disease with (acute) exacerbation; Human immunodeficiency virus [HIV] disease; Bronchitis, not specified as acute or chronic. Condition is Stable. Discharge Instructions: Acute Bronchitis, Adult, Chronic Obstructive Pulmonary Disease, How to Use an Inhaler, Upper Respiratory Infection, Adult, Cool Mist Vaporizer, Chronic Obstructive Pulmonary Disease Exacerbation, Chronic Obstructive Pulmonary Disease, Seug-[id number], Cough, Adult, Chronic Obstructive Pulmonary Disease Exacerbation, [id number]. Prescriptions for Albuterol Sulfate 2.5 mg /3 mL (0.083 %) Inhalation Solution for Nebulization - inhale 1 unit by NEBULIZATION route every 8 hours As needed; 1 box, Prednisone 20 mg Oral Tablet - take 2 tablet by ORAL route once daily for 5 days; 10 tablet, Albuterol Sulfate 90 mcg/actuation - inhale 1-2 puff by INHALATION route every 4-6 hours; 1 Inhaler, Bromfed DM 2-30-10 mg/5 mL Oral syrup - take 10 milliliter by ORAL route every 6 hours; 160 milliliter, Levaquin 750 mg Oral Tablet - take 1 tablet by ORAL route once daily for 6 days; 7 tablet. and Forms are Medication Reconciliation Form, Thank You Letter, Antibiotic Education, Prescription Opioid Use. Follow up: Private Physician; When: 2 - 3 days; Reason: Recheck today's complaints, Continuance of care, Re-evaluation by your physician. Follow up: Moody Sosa; When: 2 - 3 days; Reason: Recheck today's complaints, Re-evaluation by your physician. Problem is new. Symptoms have improved. thomas
[2018-03-10] MEDS ORDERED: KETOROLAC 30 MG/ML INJ ONE (07:20)
[2018-03-10 07:38] LABS: Blood Morphology Comment NOT SEEN (NOT SEEN); Hypochromasia 1+; Platelet Estimate ADEQ; Urine White Blood Cell Casts OK
--- NOTE | 2018-03-10 08:30 | ER ---
Nurse's Notes [facility] Name: Marjan Fleming Age: 63 yrs Sex: Female : 1955 Arrival Date: 03/10/2018 Time: 05:37 Bed 19 Private MD: Diagnosis: Acute upper respiratory infection, unspecified;Chronic obstructive pulmonary disease with (acute) exacerbation;Human immunodeficiency virus [HIV] disease;Bronchitis, not specified as acute or chronic Presentation: 03/10 05:45 Presenting complaint: Patient states: she has been coughing excessively since yesterday bb afternoon with a headache and chest discomfort, aching all over and chills. Transition of care: patient was not received from another setting of care. Onset of symptoms was March 10, 2018. Risk Assessment: Do you want to hurt yourself or someone else? Patient reports no desire to harm self or others. Initial Sepsis Screen: Does the patient meet any 2 criteria? No. Patient's initial sepsis screen is negative. Does the patient have a suspected source of infection? No. Patient's initial sepsis screen is negative. Care prior to arrival: Medication(s) given: Tylenol, 1000 mg. 05:45 Method Of Arrival: Ambulatory bb 05:45 Acuity: BLAYNE 3 bb Triage Assessment: 05:50 General: Appears in no apparent distress. comfortable, Behavior is calm, cooperative, cc3 appropriate for age. Pain: Complains of pain in chest pain and headache Quality of pain is described as aching, Pain began 1 day ago. EENT: No signs and/or symptoms were reported regarding the EENT system. Neuro: Level of Consciousness is awake, alert, obeys commands. Cardiovascular: Reports chest pain. Respiratory: Reports cough that is dry, Onset: The symptoms/episode began/occurred yesterday, the patient has moderate shortness of breath. GI: Abdomen is round obese. : No signs and/or symptoms were reported regarding the genitourinary system. Derm: flushed all over. Musculoskeletal: Circulation, motion, and sensation intact. Range of motion: intact in all extremities. Historical: - Allergies: 05:49 Bactrim DS; bb 05:49 Codeine; bb 05:49 metoclopramide HCl; bb 05:49 Stadol; bb - Home Meds: 05:49 Descovy 200-25 mg Oral tab 1 tab once daily [Active]; issentress BID twice a day bb [Active]; lisinopril 40 mg Oral tab 1 tab twice a day for Hypertension [Active]; Nexium 40 mg Oral cpDR 1 cap once daily [Active]; Norvasc 10 mg Oral tab 1 tab once daily for Hypertension [Active]; proair as needed [Active]; Toprol XL 100 mg Oral Tb24 1 tab twice a day for Hypertension [Active]; sertraline 100 mg Oral tab 2 tabs once daily [Active]; - PMHx: 05:49 Anxiety; Bipolar disorder; Chronic pain; COPD; esophageal varices; Hepatitis; HIV; bb Hypertension; Migraines; Panic Attacks; - PSHx: 05:49 Cholecystectomy; bilateral shoulder replacement; Appendectomy; bb - Immunization history:: Adult Immunizations up to date, Adult Immunizations up to date. - Social history:: Smoking status: Patient uses tobacco products, smokes one-half pack cigarettes per day, Patient uses alcohol, occasionally. Patient/guardian denies using street drugs. - Family history:: not pertinent. - Ebola Screening: : No symptoms or risks identified at this time. Screenin:50 Abuse screen: Denies threats or abuse. Denies injuries from another. Nutritional cc3 screening: No deficits noted. Tuberculosis screening: No symptoms or risk factors identified. Fall Risk Ambulatory Aid- None/Bed Rest/Nurse Assist (0 pts). Gait- Normal/Bed Rest/Wheelchair (0 pts) Mental Status- Oriented to own ability (0 pts). Assessment: 05:50 General: see triage assessment. cc3 07:00 Reassessment: Patient appears in no apparent distress at this time. Patient and/or cc3 family updated on plan of care and expected duration. Pain level reassessed. Patient is alert, oriented x 3, equal unlabored respirations, skin warm/dry/pink. Handed over to morning shift for continuity of care. 07:08 Reassessment: Patient appears in no apparent distress at this time. request something em for headache, provider notified, new medication orders received, pt discharged, pending completion of IV abx. 07:24 Reassessment: Patient appears in no apparent distress at this time. Patient and/or em family updated on plan of care and expected duration. Pain level reassessed. Patient is alert, oriented x 3, equal unlabored respirations, skin warm/dry/pink. 08:04 Reassessment: Patient appears in no apparent distress at this time. Patient and/or em family updated on plan of care and expected duration. Pain level reassessed. Patient is alert, oriented x 3, equal unlabored respirations, skin warm/dry/pink. Vital Signs: 05:49 BP 161 / 89; Pulse 80; Resp 18 S; Temp 98.1(O); Pulse Ox 97% on R/A; Weight 92.53 kg bb (R); Height 5 ft. 4 in. (162.56 cm) (R); Pain 9/10; 07:06 BP 131 / 73; Pulse 73; Resp 16; Pulse Ox 100% on R/A; em 08:03 BP 123 / 64; Pulse 75; Resp 18; Pulse Ox 95% on R/A; em 08:24 BP 132 / 93; Pulse 99; Resp 19; Temp 98.3; Pulse Ox 97% ; Pain 9/10; tt1 05:49 Body Mass Index 35.02 (92.53 kg, 162.56 cm) ED Course: 05:37 Patient arrived in ED. ds1 05:39 Justus Kolb MD is Attending Physician. thomas 05:46 Triage completed. bb 05:49 Arm band placed on Patient placed in an exam room, on a stretcher, on pulse oximetry. bb EKG completed in triage. Results shown to MD. 05:50 Patient has correct armband on for positive identification. Placed in gown. Bed in low cc3 position. Call light in reach. Side rails up X 1. carpenter wooden tank erecting on. Pulse ox on. NIBP on. 05:59 Diane Ogden is Primary Nurse. cc3 06:05 Inserted saline lock: 22 gauge in right forearm, using aseptic technique. Blood cc3 collected. 06:16 X-ray completed. Portable x-ray completed in exam room. Patient tolerated procedure kw well. 06:17 XRAY Chest (1 view) In Process Unspecified. EDMS 07:00 Report given to MATTI Lea. cc3 07:03 Venu Ortega LVN is Primary Nurse. em 07:04 Moody Sosa MD is Referral Physician. thomas 08:26 IV discontinued, intact, bleeding controlled, No redness/swelling at site. Pressure tt1 dressing applied. 08:27 No provider procedures requiring assistance completed. em Administered Medications: 06:00 Drug: Albuterol - atroVENT (3:1) (2.5 mg - 0.5 mg) 3 ml Route: Nebulizer; cc3 07:04 Follow up: Response: No adverse reaction; Marked relief of symptoms em 06:00 Drug: predniSONE 20 mg Route: PO; cc3 07:04 Follow up: Response: No adverse reaction em 06:10 Drug: SOLU-Medrol 125 mg Route: IVP; Site: right forearm; cc3 07:31 Follow up: Response: No adverse reaction em 06:15 Drug: NS 0.9% 500 ml Route: IV; Rate: bolus; Site: right forearm; cc3 07:04 Follow up: IV Status: Completed infusion; IV Intake: 500ml em 06:15 Drug: LevaQUIN 750 mg Volume: 150 ml; Route: IVPB; Infused Over: 90 mins; Site: right cc3 forearm; 08:29 Follow up: Response: No adverse reaction; IV Status: Completed infusion; IV Intake: em 150ml 06:32 Drug: Zofran 4 mg Route: IVP; Site: right forearm; cc3 07:05 Follow up: Response: No adverse reaction em 06:36 Drug: morphine 2 mg Route: IVP; Site: right forearm; cc3 07:05 Follow up: Response: No adverse reaction em 07:03 Drug: NS 0.9% 1000 ml Route: IV; Rate: 125 ml/hr; Site: right forearm; em 08:28 Follow up: IV Status: Order to discontinue infusion; IV Intake: 100ml em 07:20 Drug: TORadol 30 mg Route: IVP; Site: right forearm; ss 08:02 Follow up: Response: No adverse reaction em Intake: 07:04 IV: 500ml; Total: 500ml. em 08:28 IV: 100ml; Total: 600ml. em 08:29 IV: 150ml; Total: 750ml. em Outcome: 07:04 Discharge ordered by . thomas 08:28 Discharged to home ambulatory. em 08:28 Condition: good 08:28 Discharge instructions given to patient, Instructed on discharge instructions, follow up and referral plans. medication usage, Demonstrated understanding of instructions, follow-up care, medications, Prescriptions given X 5 08:29 Patient left the ED. em Signatures: Dispatcher [employer] Justus Long MD MD cha Munoz, Edgar, DYE OPERATOR DYE OPERATOR Lainey Baltazar ds1 Dee Kennedy RN RN Sandra Gonzalez RN RN Arminda Urban Tracy tt1 Diane Ogden cc3
[2018-03-10 08:37] VITALS: BP 132/93; TEMP 98.3; O2SAT 97
--- NOTE | 2018-03-10 08:47 | RAD REPORT ---
EXAM DESCRIPTION: Patrick Single View03/10/2018 6:17 am CLINICAL HISTORY: Cough COMPARISON: October 2014 FINDINGS: The lungs appear clear of acute infiltrate. The heart is normal size. A small to moderate hiatal hernia is present IMPRESSION: No acute abnormalities displayed
--- NOTE | 2018-03-11 04:20 | EKG ---
Test Date: 2018-03-10 Test Time: 05:53:21 E Commerce Solution Architect: SEAMUS MEASUREMENT RESULTS: Intervals: Rate: 69 CT: 140 QRSD: 86 QT: 428 QTc: 458 [place]: P: -3 CT: 140 QRS: 2 T: 15 INTERPRETIVE STATEMENTS: Normal sinus rhythm Minimal voltage criteria for LVH, may be normal variant Nonspecific ST abnormality Abnormal ECG Compared to ECG 11/07/2017 12:50:02 No significant changes Electronically Signed On 03-11-18 04:17:30 CDT by Per Crnae
== END 2018-03-10 08:29 | disposition home or self-care (01) ==
LOC: ER 05:34
DX: J06.9 Acute upper respiratory infection, unspecified (principal); J44.1 Chronic obstructive pulmonary disease with (acute) exacerbation; J40 Bronchitis, not specified as acute or chronic; B20 Human immunodeficiency virus [HIV] disease; I10 Essential (primary) hypertension; F31.9 Bipolar disorder, unspecified; K75.9 Inflammatory liver disease, unspecified; Z88.1 Allergy status to other antibiotic agents; Z88.6 Allergy status to analgesic agent
CPT/HCPCS: 36415; 71045; 80048; 80076; 81003; 81025; 83690; 83735; 83880; 84145; 84484; 85025; 85610; 87040 ×2; 87086; 87088; 93005; 94640; 96365; 96366; 96375; 99285; J2405; J2930; J7030; J7512

== ENCOUNTER 2018-03-12 09:09 | Observation (INO) | payer OTHER ==
--- OUTSIDE RECORDS SUMMARY | 2018-03-12 09:12 | XMS REPORT | Clinical Summary ---
:1955 Author Organization [facility] Address [address] [place] [address] Care Team Providers Name Role Phone Asked, [...] INFLUENZA VACCINE 12/21/2017 Implants Implanted Type Area Conference Planning Manager Device Expiration Model / Identifier Date Serial / Lot Versa-Dial/Comp Ti Std Taper Used W/25mm Glenoid Basplate - [id number] N/ A: N/A [employer] 01/22/2026 [id number] / Implanted: Qty: 1 on 10/19/2016 by Austin Bowles MD IMPLANT / DEVICES [id number] 41mm Comprehensive Reverse Shoulder Glenosphere Ba - [id number] N/A: N/A [employer] 11/21/2023 [id number] / Implanted: Qty: 1 on 10/19/2016 by Austin Bowles MD IMPLANT / DEVICES [id number] Arcom Xl 44-41 Std +3 Humeral Brg - [id number] IPM Left: [employer] 07/20 XL [id number] / Implanted: Qty: 1 on 10/19/2016 by Austin Bowles MD IMPLANT Shoulder / DEVICES [id number] Humeral Tray With Locking Ring +5 Left: [employer] 03/31/2026 [id number] / Implanted: Qty: 1 on 10/19/2016 by Austin Bowles MD Shoulder / [id number] Results Not on fileafter 03/11/2017 Insurance Payer Benefit Plan / Group Subscriber ID Type Phone Address [facility] MEDICARE [facility] DUAL COMPLETE MCR xxxxxxxxx O [facility] MEDICAID [facility] STAR+ BRIA xxxxxxxxx HMO
[2018-03-12] MEDS ORDERED: LEVALBUTEROL 1.25 MG/3 ML NEB ONE (09:47)
[2018-03-12] MEDS ORDERED: predniSONE 20 MG TAB ONE ×2 (09:48→09:56)
[2018-03-12] MEDS ORDERED: RANITIDINE 150 MG TABLET ONE (09:56)
[2018-03-12 10:28] LABS: Absolute Monocytes 0.7 K/uL (0.1-1.3); Absolute Neutrophil 3.7 K/uL (1.8-8.0); Basophils % 0.5 % (0-1.3); Eosinophils % 2.1 % (0-4.4); Hematocrit 32.8 % (36.0-45.0); MCH 21.5 pg (27.0-35.0); MCV 68.6 fL (80-100); MPV 7.2 fL (7.6-11.3); Monocytes % 12.2 % (3.3-12.3); RBC Red Blood Cell Count 4.77 M/uL (3.86-4.86)
[2018-03-12 10:39] LABS: Potassium 3.7 mmol/L (3.5-5.1)
[2018-03-12 10:47] LABS: Urine Blood NEGATIVE (NEG); Urine Glucose NEGATIVE (NEG); Urine Protein NEGATIVE (NEG); Urine Specific Gravity 1.015 (1.005-1.030)
--- NOTE | 2018-03-12 10:50 | RAD REPORT ---
EXAM DESCRIPTION: RAD - Chest Single View - 03/12/2018 9:56 am CLINICAL HISTORY: COPD history, cough and congestion, recent diagnosis of bronchitis COMPARISON: Portable chest March 10, two view chest November 07; CT abdomen June 2017 TECHNIQUE: AP portable chest image was obtained 0946 hours . FINDINGS: Lung volumes are relatively low. Heart size is upper normal, accentuated by body habitus, shallow inspiration and portable technique. No vascular engorgement. Failure and volume overload are not suspected. Hilar regions are not clearly different from comparison. No focal consolidations seen to suspect bacterial pneumonia. Interstitial pattern is similar to comparison. Bilateral shoulder imp lants in place No measurable pleural effusion and no pneumothorax. No acute bone finding. Hiatal teresa ia again noted. No acute aortic findings suspected. IMPRESSION: No pneumonia or acute cardiopulmonary finding identified. Heart size is upper normal but without other findings to suggest failure or volume overload.
[2018-03-12 11:06] LABS: NT PRO-BNP 842 pg/mL (<125); Troponin (Emerg Dept Use Only) < 0.02 ng/mL (0.0-0.045)
--- NOTE | 2018-03-12 11:18 | ER ---
Nurse's Notes [facility] Name: Marjan Fleming Age: 63 yrs Sex: Female : 1955 Arrival Date: 03/12/2018 Time: 09:13 Bed 20 Private MD: Lele Rahman H Diagnosis: COPD Excerbation, Dyspnea, Bronchitis, Chest Pain Presentation: 03/12 09:21 Presenting complaint: Patient states: Seen 2 days ago in ER and diagnosed with ss bronchitis. Pt reports that her symptoms have not improved. Transition of care: patient was not received from another setting of care. Onset of symptoms is unknown. Risk Assessment: Do you want to hurt yourself or someone else? Patient reports no desire to harm self or others. Initial Sepsis Screen: Does the patient meet any 2 criteria? RR > 20 per min. Does the patient have a suspected source of infection? Yes: Productive cough/pneumonia. Care prior to arrival: None. 09:21 Method Of Arrival: Ambulatory ss 09:21 Acuity: BLAYNE 3 ss Historical: - Allergies: 09:23 Bactrim DS; ss 09:23 Codeine; ss 09:23 metoclopramide HCl; ss 09:23 Stadol; ss - PMHx: 09:23 Anxiety; Bipolar disorder; Chronic pain; COPD; esophageal varices; Hepatitis; HIV; ss Hypertension; Migraines; Panic Attacks; - PSHx: 09:23 Cholecystectomy; bilateral shoulder replacement; Appendectomy; ss - Immunization history:: Adult Immunizations up to date, Flu vaccine is not up to date. - Social history:: Smoking status: Patient uses tobacco products, smokes one-half pack cigarettes per day. - Ebola Screening: : Patient denies exposure to infectious person Patient denies travel to an Ebola-affected area in the 21 days before illness onset. Screenin:45 Abuse screen: Denies threats or abuse. Nutritional screening: No deficits noted. em Tuberculosis screening: No symptoms or risk factors identified. Fall Risk None identified. Assessment: 09:45 General: Appears Behavior is calm, cooperative. Pain: Complains of pain in chest Pain em does not radiate. Pain currently is 10 out of 10 on a pain scale. Neuro: Level of Consciousness is awake, alert, obeys commands, Oriented to person, place, time, situation. Cardiovascular: Heart tones S1 S2 present Capillary refill < 3 seconds Patient's skin is warm and dry. Rhythm is regular. Respiratory: Reports shortness of breath cough that is productive, pain with movement Airway is patent Respiratory effort is even, Respiratory pattern is regular, tachypnea Sputum is yellow Breath sounds with wheezes bilaterally. GI: Abdomen is round non-distended, Patient currently denies nausea, vomiting. : EENT: No signs and/or symptoms were reported regarding the EENT system. Derm: Skin is intact, is thin, Skin is pink, warm \T\ dry. Musculoskeletal: Range of motion: intact in all extremities. 09:50 General: The previous assessment is accurate, call light remains within reach. . ss 10:40 Reassessment: Patient appears in no apparent distress at this time. pt ambulated to the em restroom and back to stretcher without assistance, SPO2 was 95% after ambulatory, RR 22, audible wheezing, provider notified. 11:50 Reassessment: Patient appears in no apparent distress at this time. Patient and/or em family updated on plan of care and expected duration. Pain level reassessed. Patient is alert, oriented x 3, equal unlabored respirations, skin warm/dry/pink. 12:30 Reassessment: lunch tray given to pt, tolerated well. em 12:36 Reassessment: attempted to call report, nurse unavailable at this time. em 12:54 Reassessment: Patient appears in no apparent distress at this time. Patient and/or em family updated on plan of care and expected duration. Pain level reassessed. Patient is alert, oriented x 3, equal unlabored respirations, skin warm/dry/pink. Vital Signs: 09:23 BP 158 / 81; Pulse 79; Resp 24; Temp 98.9(O); Pulse Ox 98% on R/A; Weight 92.53 kg; ss Height 5 ft. 4 in. (162.56 cm); Pain 10/10; 10:36 BP 139 / 74; Pulse 62; Resp 22; Pulse Ox 95% on R/A; em 11:30 BP 153 / 76; Pulse 69; Resp 24; Pulse Ox 99% on R/A; em 12:59 BP 145 / 58; Pulse 86; Resp 20; Temp 99.6(O); Pulse Ox 98% on R/A; Pain 10/10; em 09:23 Body Mass Index 35.02 (92.53 kg, 162.56 cm) ED Course: 09:13 Patient arrived in ED. mr 09:13 Lele Rahman DO is Private Physician. mr 09:20 Joey Jung MD is Attending Physician. kdr 09:22 Triage completed. ss 09:23 Venu Ortega LVN is Primary Nurse. em 09:23 Arm band placed on right wrist. ss 09:40 Patient has correct armband on for positive identification. Placed in gown. Bed in low em position. Call light in reach. Side rails up X2. 09:56 CXR XRAY In Process Unspecified. EDMS 10:00 Urine collected: clean catch specimen, clear. dh3 10:15 Initial lab(s) drawn, by me, sent to lab. Inserted saline lock: 22 gauge in left em forearm, using aseptic technique. Blood collected. 11:01 EKG done, by ED staff, reviewed by Joey Jung MD. 3 11:16 César Rincon DO is Hospitalizing Provider. kdr 13:13 No provider procedures requiring assistance completed. em 13:14 Patient admitted, IV remains in place. em Administered Medications: 09:45 Drug: Xopenex (3) 1.25 mg Route: Inhalation; em 10:21 Follow up: Response: No adverse reaction em 10:00 Drug: predniSONE 60 mg Route: PO; em 10:21 Follow up: Response: No adverse reaction em 10:00 Drug: ZANtac 150 mg Route: PO; em 10:21 Follow up: Response: No adverse reaction em Outcome: 11:17 Decision to Hospitalize by Provider. kdr 13:14 Admitted to Tele accompanied by tech, via stretcher, room 404, with chart, Report em called to ASHLEY Kennedy 13:14 Condition: good 13:14 Instructed on the need for admit, Demonstrated understanding of instructions. 13:21 Patient left the ED. em Signatures: Dispatcher [employer] EDMS Joey Jung MD MD kdr Rivera, Mary mr Venu Ortega, MATTI FARLEYN em Sandra Cadet RN RN Morenita Ash 3
--- NOTE | 2018-03-12 11:18 | EDPHYS ---
Physician Documentation [facility] Name: Marjan Fleming Age: 63 yrs Sex: Female : 1955 Arrival Date: 03/12/2018 Time: 09:13 Bed 20 Private MD: Lele Rahman H ED Physician Joey Jung Historical: - Allergies: 03/12 09:23 Bactrim DS; ss 09:23 Codeine; ss 09:23 metoclopramide HCl; ss 09:23 Stadol; ss - PMHx: 09:23 Anxiety; Bipolar disorder; Chronic pain; COPD; esophageal varices; Hepatitis; HIV; ss Hypertension; Migraines; Panic Attacks; - PSHx: 09:23 Cholecystectomy; bilateral shoulder replacement; Appendectomy; ss - Immunization history:: Adult Immunizations up to date, Flu vaccine is not up to date. - Social history:: Smoking status: Patient uses tobacco products, smokes one-half pack cigarettes per day. - Ebola Screening: : Patient denies exposure to infectious person Patient denies travel to an Ebola-affected area in the 21 days before illness onset. Vital Signs: 09:23 BP 158 / 81; Pulse 79; Resp 24; Temp 98.9(O); Pulse Ox 98% on R/A; Weight 92.53 kg; ss Height 5 ft. 4 in. (162.56 cm); Pain 10/10; 10:36 BP 139 / 74; Pulse 62; Resp 22; Pulse Ox 95% on R/A; em 11:30 BP 153 / 76; Pulse 69; Resp 24; Pulse Ox 99% on R/A; em 12:59 BP 145 / 58; Pulse 86; Resp 20; Temp 99.6(O); Pulse Ox 98% on R/A; Pain 10/10; em 09:23 Body Mass Index 35.02 (92.53 kg, 162.56 cm) ss MDM: 11:17 Patient medically screened. kdr 03/12 09:40 Order name: CBC with Diff kdr 03/12 09:40 Order name: Chem 7; Complete Time: 10:53 kdr 03/12 09:40 Order name: Flu; Complete Time: 10:53 kdr 03/12 09:40 Order name: Urine Culture kdr 03/12 09:40 Order name: Blood Culture Adult (2) kdr 03/12 10:08 Order name: Urine Dipstick--Ancillary (enter results); Complete Time: 10:53 bd 03/12 09:40 Order name: CXR XRAY; Complete Time: 10:53 kdr 03/12 10:08 Order name: Urine --Ancillary (enter results); Complete Time: 10:53 bd 03/12 10:31 Order name: CBC Smear Scan EDMS 03/12 10:33 Order name: Troponin (emerg Dept Use Only) kdr 03/12 10:33 Order name: PROBNP kdr 03/12 09:40 Order name: Urine Dipstick-Ancillary (obtain specimen); Complete Time: 10:03 kdr 03/12 10:41 Order name: EKG Strip; Complete Time: 11:01 kdr Administered Medications: 09:45 Drug: Xopenex (3) 1.25 mg Route: Inhalation; em 10:21 Follow up: Response: No adverse reaction em 10:00 Drug: predniSONE 60 mg Route: PO; em 10:21 Follow up: Response: No adverse reaction em 10:00 Drug: ZANtac 150 mg Route: PO; em 10:21 Follow up: Response: No adverse reaction em Disposition: 03/12/18 11:17 Hospitalization ordered by César Rincon for Observation. Preliminary diagnosis is COPD Excerbation, Dyspnea, Bronchitis, Chest Pain. - Bed requested for Telemetry/MedSurg (observation). - Status is Observation. em - Condition is Fair. - Problem is new. - Symptoms have improved. UTI on Admission? No Signatures: Dispatcher [employer] EDUT HipolitoHeydi boswell Joey Jung MD MD [facility] Venu Ortega, TRANSIT OPERATOR TRANSIT OPERATOR em Sandra Cadet, RN RN ss Corrections: (The following items were deleted from the chart) 12:20 11:17 Hospitalization Ordered by César Rincon DO for Observation. Preliminary bd diagnosis is COPD Excerbation, Dyspnea, Bronchitis, Chest Pain. Bed requested for Telemetry/MedSurg (observation). Status is Observation. Condition is Fair. Problem is new. Symptoms have improved. UTI on Admission? No. kdr 13:21 12:20 03/12/2018 11:17 Hospitalization Ordered by César Rincon DO for Observation. em Preliminary diagnosis is COPD Excerbation, Dyspnea, Bronchitis, Chest Pain. Bed requested for Telemetry/MedSurg (observation). Status is Observation. Condition is Fair. Problem is new. Symptoms have improved. UTI on Admission? No. bd
[2018-03-12] MEDS ORDERED: IPRATROPIUM BROM 0.5MG/2.5ML NEB PRN (11:38)
[2018-03-12] MEDS ORDERED: BENZONATATE 100 MG CAP PO PRN (11:38)
[2018-03-12] MEDS ORDERED: ALBUTEROL 2.5 MG/3 ML NEB SOL NEB PRN (11:38)
[2018-03-12] MEDS ORDERED: DOCUSATE NA 100 MG CAP PO PRN (11:38)
[2018-03-12] MEDS ORDERED: HYDROCODONE/APAP 7.5/325 MG TAB PO PRN (11:38)
[2018-03-12] MEDS ORDERED: ACETAMINOPHEN 500 MG TAB PO PRN (11:38)
[2018-03-12] MEDS ORDERED: ONDANSETRON 4 MG/2 ML VIAL IV PRN (11:38)
--- NOTE | 2018-03-12 11:50 | P.HP ---
Certification for Inpatient Patient admitted to: Observation With expected LOS: <2 Midnights Patient will require the following post-hospital care: None Practitioner: I am a practitioner with admitting privileges, knowledge of patient current condition, hospital course, and medical plan of care. Services: Services provided to patient in accordance with Admission requirements found in Title 42 Section 412.3 of the Code of Federal Regulations Patient History Date of Service: 03/12/18 Primary Care Provider: Dr. Rahman; Dr. Cardenas([facility]/[place]) Reason for admission: Cough, shortness of breath History of Present Illness: 63-year-old female presented emergency room with cough and shortness of breath. Patient reported cough, shortness of breath and congestion over the past several days. Patient with history of COPD. She still smokes regularly. Patient also with history of HIV. Her shortness of breath did not improve. Patient came to the ER for evaluation. Patient denied any significant nausea, vomiting. Some mild chest pain with cough noted. In the ER patient evaluated. Patient was slightly tachypneic. Patient received breathing treatments. Room-air saturations were within normal range. Chest x-ray shows no pneumonia. White count 5.6, hemoglobin 10.3. Sodium 137, potassium 3.7. BUN of 16, creatinine 0.8 with a GFR 73. Troponin unremarkable. Patient was admitted for observation. When I saw the patient the ER, she appeared comfortable. She had increasing cough with mild tachypnea. Patient with history of HIV, tobacco abuse, alcohol use, anxiety, hypertension and COPD. Allergies fentanyl Allergy (Severe, Verified 06/30/17 03:39) Hives butorphanol tartrate [From Stadol] Allergy (Verified 06/30/17 03:39) confusion codeine Allergy (Verified 06/30/17 03:39) Nausea/Vomiting metoclopramide HCl [From Reglan] Allergy (Verified 06/30/17 03:39) Shortness of breath sulfamethoxazole [From Bactrim] Allergy (Verified 06/30/17 03:39) Hives/Rash trimethoprim [From Bactrim] Allergy (Verified 06/30/17 03:39) Hives/Rash Bactrim DS Allergy (Uncoded 07/23/17 16:47) Unknown Home medications list reviewed: Yes Home Medications: Raltegravir Potassium [Isentress] 400 mg PO BID 02/28/12 Lorazepam [Ativan] 2 mg PO DAILYPRN PRN 04/02/12 Sertraline [Zoloft*] 200 mg PO DAILY 09/15/12 Amlodipine [Norvasc*] 10 mg PO DAILY 01/04/13 Tiotropium [Spiriva Handihaler*] 18 mcg IH DAILY #1 cap.w.dev 10/24/14 Lisinopril 40 mg PO BID 05/23/15 Metoprolol Succinate [Toprol Xl*] 1 tab PO BID 02/02/16 Esomeprazole Mag Trihydrate [Nexium] 40 mg PO DAILY #30 capsule.dr 02/27/16 Emtricitabine/Tenofov Alafenam [Descovy 200-25 mg Tablet] 1 tab PO BEDTIME 10/05 Acetaminophen [Acetaminophen Extra Strength] 1 tab PO Q6HP PRN 06/30/17 Hydralazine [Apresoline*] 25 mg PO DAILY 06/30/17 Phentermine HCl 1 tab PO Q7D 06/30/17 - Past Medical/Surgical History Diabetic: No -: HIV -: Hepatitis-C -: Bipolar disorder -: Hypertension -: COPD -: Tobacco abuse -: Alcohol abuse -: Anemia likely of chronic disease -: Appendectomy -: Cholecystectomy -: right arthroscopy -: Right foot repair -: Right shoulder replacement -: left shoulder rotated cuff Psychosocial/ Personal History: She lives at home. She is not . - Family History Father -: Kidney disease Mother -: Other (see notes) Notes: Epilepsy, chronic pain - Social History Smoking Status: Light Tobacco smoker (1-9 cigarettes/day) Counseled patient to stop smoking for: less than 10 minutes Smoking therapy provided: Yes Patient receptive to therapy: Yes Alcohol use: Yes CD- Drugs: No Caffeine use: Yes Place of Residence: Home Review of Systems General: As per HPI Eyes: Unremarkable ENT: Nose Congestion, As per HPI Respiratory: Cough, Shortness of Breath, SOB with Excertion, Wheezing, As per HPI Cardiovascular: Unremarkable Gastrointestinal: Unremarkable Genitourinary: Unremarkable Musculoskeletal: Unremarkable Integumentary: Unremarkable Neurological: As per HPI Lymphatics: Unremarkable Physical Examination - Physical Exam General: Alert, In no apparent distress, Oriented x3, Cooperative HEENT: Atraumatic, Normocephalic, PERRLA, Other (Nasal congestion noted) Neck: Supple, No Thyromegaly Respiratory: Expiratory wheezes (Bilateral) Cardiovascular: Normal pulses, Regular rate/rhythm Gastrointestinal: Normal bowel sounds, Soft and benign, Non-distended, No ascites, No tenderness, No masses, No rebound, No guarding Musculoskeletal: No erythema, No tenderness, No warmth Integumentary: No tenderness/swelling, No erythema, No warmth, No cyanosis Neurological: Normal speech, Normal strength at 5/5 x4 extr, Normal tone, Normal affect Lymphatics: No axilla or inguinal lymphadenopathy - Studies Laboratory Data (last 24 hrs) 03/12/18 10:00: Sodium 137, Potassium 3.7, BUN 16, Creatinine 0.80, Glucose 91 03/12/18 10:00: WBC 5.6 D, Hgb 10.3 L, Hct 32.8 L, Plt Count 242 Microbiology Data (last 24 hrs): 03/12/18 10:00 Nasopharnyx Influenza Type A Antigen Screen - Final 03/12/18 10:00 Nasopharnyx Influenza Type B Antigen Screen - Final Assessment and Plan - Plan Impression: Cough, shortness of breath secondary to COPD exacerbation History of HIV Hypertension GERD Anemia of chronic disease Tobacco abuse Alcohol use Bipolar disorder with anxiety Plan: Cough, shortness of breath secondary to COPD exacerbation: Patient will be admitted for observation. Will continued to maintain sats above 90%. Will provide COPD medication including steroids and breathing treatments. Will wean off oxygen. Will provide medication for cough, congestion. Will reassess tomorrow. Recheck chest x-ray tomorrow. Anticipate discharge History of HIV: Will verify and restart home medication. Patient seen at [facility] by HIV specialist. Hypertension: Will verify home medication. Will monitor closely. GERD: Will provide medication. Anemia of chronic disease: Will monitor closely. Tobacco abuse: Will provide nicotine patch. Will address cessation education Alcohol use: Will provide cessation education. Bipolar disorder with anxiety: Will provide medication. Will restart home medication. Discharge Plan: Home Plan to discharge in: 24 Hours - Advance Directives Does patient have a Living Will: No Does patient have a Durable POA for Healthcare: Yes - Code Status/Comfort Care Code Status Assessed: Yes (Patient is full code.) Time Spent Managing Pts Care (In Minutes): 55
[2018-03-12 12:09] LABS: Anisocytosis 1+; Blood Morphology Comment NOTED (NOT SEEN); Hypochromasia 1+; Platelet Estimate ADEQ; Urine White Blood Cell Casts OK
[2018-03-12] MEDS: ENOXAPARIN 40 MG/0.4 ML SQ SCH (13:49)
[2018-03-12] MEDS: ALPRAZOLAM 0.25 MG TABLET PO PRN ×2 (13:50→22:39)
[2018-03-12 13:57] VITALS: BMI 34.3
[2018-03-12] MEDS: GUAIFENESIN 600 MG SA TAB PO SCH ×2 (14:59→20:52)
[2018-03-12] MEDS ORDERED: MORPHINE 2 MG/ML SYR IV ONE (15:00)
[2018-03-12] MEDS ORDERED: PANTOPRAZOLE 40MG TABLET PO SCH (16:00)
[2018-03-12] MEDS ORDERED: GABAPENTIN 100 MG CAP PO PRN (16:35)
[2018-03-12] MEDS ORDERED: TIOTROPIUM IH SCH (16:45)
[2018-03-12] MEDS ORDERED: [UNRECOGNIZED DRUG - OTHER] IH SCH (16:45)
[2018-03-12] MEDS ORDERED: PNEUMOCOCCAL VACCINE 0.5 ML IMVAC ONE (17:00)
[2018-03-12] MEDS ORDERED: INFLUENZA VACCINE (for 3y+) 0.5 ML DOSE IMVAC ONE (17:00)
[2018-03-12] MEDS: ARFORMOTEROL TARTRATE 15 MCG/2 ML VIAL.NEB NEB SCH (19:10)
[2018-03-12] MEDS: ISENTRESS 400 MG PO SCH (20:50)
[2018-03-12] MEDS: ESOMEPRAZOLE 40 MG PO SCH (20:51)
[2018-03-12] MEDS: predniSONE 20 MG TAB PO SCH (20:52)
[2018-03-12] MEDS ORDERED: HYDRALAZINE HCL 25 MG TABLET PO SCH (21:00)
[2018-03-12] MEDS ORDERED: TENOFOVIR PO SCH (21:00)
[2018-03-12] MEDS ORDERED: EMTRICITABINE PO SCH (21:00)
[2018-03-13 06:25] LABS: Absolute Lymphocytes (CBC) 0.8 K/uL (0.7-4.9); Absolute Monocytes 0.7 K/uL (0.1-1.3); Basophils % 0.3 % (0-1.3); Hematocrit 32.1 % (36.0-45.0); Lymphocytes % 12.5 % (15.3-44.8); MCH 21.8 pg (27.0-35.0); MCV 69.1 fL (80-100); MPV 7.6 fL (7.6-11.3); Monocytes % 10.5 % (3.3-12.3); RBC Red Blood Cell Count 4.65 M/uL (3.86-4.86)
[2018-03-13 06:43] LABS: Magnesium 2.6 mg/dL (1.8-2.4); Potassium 3.7 mmol/L (3.5-5.1)
--- NOTE | 2018-03-13 07:47 | RAD REPORT ---
EXAM DESCRIPTION: RAD - Chest Pa And Lat (2 Views) - 03/13/2018 6:59 am CLINICAL HISTORY: Chest pain, shortness of breath COMPARISON: October 10 TECHNIQUE: PA and lateral views of the chest were obtained. FINDINGS: The lungs are underinflated but clear of focal lung process or edema. Hiatal hernia again noted. Heart size is normal and central vasculature is within normal limits. No pleural effusion o r pneumothorax seen. No acute bony finding noted. No aortic abnormality. IMPRESSION: No acute cardiopulmonary process. No new or progressive cardiopulmonary finding.
[2018-03-13] MEDS: ARFORMOTEROL TARTRATE 15 MCG/2 ML VIAL.NEB NEB SCH (08:33)
[2018-03-13] MEDS ORDERED: SERTRALINE HCL 100 MG TAB PO SCH (09:00)
[2018-03-13] MEDS: ESOMEPRAZOLE 40 MG PO SCH (09:00)
[2018-03-13] MEDS: ISENTRESS 400 MG PO SCH (09:00)
[2018-03-13] MEDS ORDERED: AMLODIPINE 10 MG TAB PO SCH (09:00)
--- NOTE | 2018-03-13 09:05 | EKG ---
Test Date: 2018-03-12 Test Time: 10:56:32 Lace Cutter: GRAY MEASUREMENT RESULTS: Intervals: Rate: 66 TX: 138 QRSD: 82 QT: 446 QTc: 467 [place]: P: 5 TX: 138 QRS: 21 T: 39 INTERPRETIVE STATEMENTS: Normal sinus rhythm Nonspecific ST abnormality Abnormal ECG Compared to ECG 03/10/2018 05:53:21 Left ventricular hypertrophy no longer present ST (T wave) deviation still present Electronically Signed On 03-13-18 09:04:23 CDT by Rich Grissom
[2018-03-13 09:57] VITALS: O2SAT 98
[2018-03-13] MEDS: predniSONE 20 MG TAB PO SCH (10:22)
[2018-03-13] MEDS: GUAIFENESIN 600 MG SA TAB PO SCH (10:23)
[2018-03-13] MEDS: ENOXAPARIN 40 MG/0.4 ML SQ SCH (10:25)
--- NOTE | 2018-03-13 11:24 | P.DS ---
Admission Date: 03/12/18 Discharge Date: 03/13/18 Primary Care Provider: Dr. Rahman; Dr. Cardenas([facility]/[place]) Disposition: ROUTINE DISCHARGE Discharge Condition: GOOD Reason for Admission: Cough, shortness of breath Consultations: None Procedures: CXR: CLINICAL HISTORY: Chest pain, shortness of breath COMPARISON: October 10 TECHNIQUE: PA and lateral views of the chest were obtained. FINDINGS: The lungs are underinflated but clear of focal lung process or edema. Hiatal hernia again noted. Heart size is normal and central vasculature is within normal limits. No pleural effusion or pneumothorax seen. No acute bony finding noted. No aortic abnormality. IMPRESSION: No acute cardiopulmonary process. No new or progressive cardiopulmonary finding. Medical Problem List: Cough, shortness of breath secondary to COPD exacerbation History of HIV Hypertension GERD Anemia of chronic disease Tobacco abuse Alcohol use Bipolar disorder with anxiety Brief History of Present Illness: 63-year-old female presented emergency room with cough and shortness of breath. Patient reported cough, shortness of breath and congestion over the past several days. Patient with history of COPD. She still smokes regularly. Patient also with history of HIV. Her shortness of breath did not improve. Patient came to the ER for evaluation. Patient denied any significant nausea, vomiting. Some mild chest pain with cough noted. In the ER patient evaluated. Patient was slightly tachypneic. Patient received breathing treatments. Room-air saturations were within normal range. Chest x-ray shows no pneumonia. White count 5.6, hemoglobin 10.3. Sodium 137, potassium 3.7. BUN of 16, creatinine 0.8 with a GFR 73. Troponin unremarkable. Patient was admitted for observation. When I saw the patient the ER, she appeared comfortable. She had increasing cough with mild tachypnea. Patient with history of HIV, tobacco abuse, alcohol use, anxiety, hypertension and COPD. Hospital Course: Presented with cough, shortness of breath secondary COPD exacerbation. Patient has improved with COPD treatment. Oxygen Saturations above 90%. At discharge she will continue with prednisone 20 mg 1 pill twice daily for 5 days then 1 pill once daily for 5 days. Patient will continue with her medications including Spiriva 1 puff daily, Symbicort 2 puffs twice daily, and Pro air 2 puffs 3 times a day as needed for shortness of breath. Tessalon Perles 100 mg 1 pill 3 times a day as needed for cough will be provided. Recommendation is for the patient follow up with her PCP to further monitor and address. Patient may also follow up with pulmonology as an outpatient to continue her care. Patient has HIV. Patient will continue with her HIV medications-Descovy 200/25 mg daily and Isentress 400 mg twice daily. Patient will follow up with her HIV specialist. Patient has hypertension. Occasions were adjusted during her stay. At discharge she will continue with Norvasc 10 mg daily and hydralazine 50 mg 1 pill twice daily. Metoprolol, lisinopril and Dyazide have been discontinued. Recommendation to monitor blood pressures daily. If her blood pressures remain above 140/90 then her medication may need to be further adjusted. She is to contact her PCP for further recommendation. Patient has GERD. She will continue with Nexium 40 mg 1 pill once daily. Patient has anemia of chronic disease. This can be monitored as an outpatient. Patient with alcohol and tobacco abuse. Cessation education provided. Patient desires to use Chantix to help her quit smoking. Recommendations for the patient follow up with her PCP to initiate medication. Patient has bipolar disorder with anxiety. Patient will continue with her medication-Zoloft 100 mg daily. Patient with chronic pain. Patient has been started on Neurontin 100 mg 1 pill 3 times a day as needed for pain. Recommendation is for the patient follow up with pain management to further monitor and address her pain medication. Vital Signs/Physical Exam: Temp Pulse Resp BP Pulse Ox 98.1 F 66 18 167/92 H 96 03/13/18 08:00 03/13/18 08:00 03/13/18 08:00 03/13/18 08:00 03/13/18 08:00 General: Alert, In no apparent distress, Oriented x3, Cooperative HEENT: Atraumatic Neck: Supple Respiratory: Clear to auscultation bilaterally, Normal air movement Cardiovascular: Normal pulses, Regular rate/rhythm Gastrointestinal: Normal bowel sounds, Soft and benign, Non-distended, No tenderness, No masses, No rebound, No guarding Musculoskeletal: No erythema, No tenderness, No warmth Integumentary: No tenderness/swelling, No erythema, No warmth, No cyanosis Neurological: Normal speech, Normal strength at 5/5 x4 extr, Normal tone, Normal affect Laboratory Data at Discharge: WBC 6.5 K/uL (4.3-10.9) D 03/13/18 05:57 Hgb 10.1 g/dL (12.0-15.0) L 03/13/18 05:57 Hct 32.1 % (36.0-45.0) L 03/13/18 05:57 Plt Count 225 K/uL (152-406) 03/13/18 05:57 Sodium 136 mmol/L (136-145) 03/13/18 05:57 Potassium 3.7 mmol/L (3.5-5.1) 03/13/18 05:57 BUN 24 mg/dL (7-18) H 03/13/18 05:57 Creatinine 0.70 mg/dL (0.55-1.3) 03/13/18 05:57 Glucose 128 mg/dL (74-106) H 03/13/18 05:57 Magnesium 2.6 mg/dL (1.8-2.4) H 03/13/18 05:57 Home Medications: Raltegravir Potassium [Isentress] 400 mg PO BID 02/28/12 Lorazepam [Ativan] 2 mg PO BID* PRN 04/02/12 Sertraline [Zoloft*] 200 mg PO DAILY 09/15/12 Amlodipine [Norvasc*] 10 mg PO DAILY 01/04/13 Tiotropium [Spiriva Handihaler*] 18 mcg IH DAILY #1 cap.w.dev 10/24/14 Esomeprazole Mag Trihydrate [Nexium] 40 mg PO DAILY #30 capsule. 02/27/16 Emtricitabine/Tenofov Alafenam [Descovy 200-25 mg Tablet] 1 tab PO BEDTIME 10/05 Acetaminophen [Acetaminophen Extra Strength] 1 tab PO Q6HP PRN 06/30/17 Albuterol Neb [Proventil 0.083% Neb Soln] 2.5 mg IH BID 03/12/18 predniSONE [Prednisone*] 40 mg PO DAILY 03/12/18 Albuterol Sulfate [Ventolin Hfa] 2 puff IH TID PRN #90 hfa.aer.ad 03/13/18 Benzonatate [Tessalon Perle*] 100 mg PO TID PRN #15 cap 03/13/18 Budesonide/Formoterol Fumarate [Symbicort 160-4.5 Mcg Inhaler] 2 puff IH BID #1 hfa.aer.ad 03/13/18 Gabapentin [Neurontin*] 100 mg PO TID PRN #30 cap 03/13/18 Hydralazine HCl 50 mg PO BID #60 tablet 03/13/18 predniSONE [Prednisone*] 20 mg PO SEECOM #15 tab 03/13/18 New Medications: Albuterol Sulfate [Ventolin Hfa] 2 puff IH TID PRN #90 hfa.aer.ad PRN Reason: Shortness Of Breath Benzonatate [Tessalon Perle*] 100 mg PO TID PRN #15 cap PRN Reason: Cough Budesonide/Formoterol Fumarate [Symbicort 160-4.5 Mcg Inhaler] 2 puff IH BID #1 hfa.aer.ad Gabapentin [Neurontin*] 100 mg PO TID PRN #30 cap PRN Reason: Pain Hydralazine HCl 50 mg PO BID #60 tablet predniSONE [Prednisone*] 20 mg PO SEECOM #15 tab Patient Discharge Instructions: 1. Patient will follow up with PCP in 1 week to follow up this hospitalization. 2. Patient presented with cough, shortness of breath secondary COPD exacerbation. Patient has improved with COPD treatment. Oxygen Saturations above 90%. At discharge she will continue with prednisone 20 mg 1 pill twice daily for 5 days then 1 pill once daily for 5 days. Patient will continue with her medications including Spiriva 1 puff daily , Symbicort 2 puffs twice daily, and Pro air 2 puffs 3 times a day as needed for shortness of breath. Tessalon Perles 100 mg 1 pill 3 times a day as needed for cough will be provided. Recommendation is for the patient follow up with her PCP to further monitor and address. Patient may also follow up with pulmonology as an outpatient to continue her care. 3. Patient has HIV. Patient will continue with her HIV medications-Descovy 200/25 mg daily and Isentress 400 mg twice daily. Patient will follow up with her HIV specialist. 4. Patient has hypertension. Occasions were adjusted during her stay. At discharge she will continue with Norvasc 10 mg daily and hydralazine 50 mg 1 pill twice daily. Metoprolol, lisinopril and Dyazide have been discontinued. Recommendation to monitor blood pressures daily. If her blood pressures remain above 140/90 then her medication may need to be further adjusted. She is to contact her PCP for further recommendation. 5. Patient has GERD. She will continue with Nexium 40 mg 1 pill once daily. 6. Patient has anemia of chronic disease. This can be monitored as an outpatient. 7. Patient with alcohol and tobacco abuse. Cessation education provided. Patient desires to use Chantix to help her quit smoking. Recommendations for the patient follow up with her PCP to initiate medication. 8. Patient has bipolar disorder with anxiety. Patient will continue with her medication-Zoloft 100 mg daily. 9. Patient with chronic pain. Patient has been started on Neurontin 100 mg 1 pill 3 times a day as needed for pain. Recommendation is for the patient follow up with pain management to further monitor and address her pain medication. Diet: AHA Activity: Ad pricila Followup: Lele Rahman DO, DO [Primary Care Provider] - Time spent managing pt's care (in minutes): 55
[2018-03-13 12:26] VITALS: BP 138/88; TEMP 97.4
== END 2018-03-13 13:50 | disposition home or self-care (01) ==
LOC: ER 09:09 → INTOOBSV 11:21 → ERHOLD 11:21 → 4TH 13:07
PROVIDERS: ADMIT Family Medicine; ATTEND Family Medicine
DX: J44.1 Chronic obstructive pulmonary disease with (acute) exacerbation (principal); Z21 Asymptomatic human immunodeficiency virus [HIV] infection status; I10 Essential (primary) hypertension; K21.9 Gastro-esophageal reflux disease without esophagitis; D64.9 Anemia, unspecified; F10.10 Alcohol abuse, uncomplicated; F17.210 Nicotine dependence, cigarettes, uncomplicated; F31.9 Bipolar disorder, unspecified; F41.9 Anxiety disorder, unspecified; G89.29 Other chronic pain
CPT/HCPCS: 36415; 71045; 71046; 80048 ×2; 81003; 81025; 83735; 83880; 84484; 85025 ×2; 87040 ×2; 87086; 87088; 87804 ×2; 93005; 94640; 99285; G0378 ×2; J1650 ×2; J2270; J2405; J7605 ×2; J7512

== ENCOUNTER 2018-04-01 13:44 | Observation (INO) | payer OTHER ==
--- OUTSIDE RECORDS SUMMARY | 2018-04-01 13:47 | XMS REPORT | Clinical Summary ---
:1955 Author Organization [facility] Address [address] [place] [address] Care Team Providers Name Role Phone Asked, [...] VACCINE 12/21/2017 Implants Implanted Type Area Product Design Manager Device Expiration Model / Identifier Date Serial / Lot Versa-Dial/Comp Ti Std Taper Used W/25mm Glenoid Basplate - [id number] N/ A: N/A [employer] 01/22/2026 [id number] / Implanted: Qty: 1 on 10/19/2016 by Austin Bowles MD IMPLANT / DEVICES [id number] 41mm Comprehensive Reverse Shoulder Glenosphere Ba - [id number] N/A: N/A [employer] 11/21/2023 [id number] / Implanted: Qty: 1 on 10/19/2016 by Austin Bowles MD IMPLANT / DEVICES [id number] Arcom Xl 44-41 Std +3 Humeral Brg - [id number] Left: [employer] 07/20 XL [id number] / Implanted: Qty: 1 on 10/19/2016 by Austin Bowles MD IMPLANT Shoulder / DEVICES [id number] Humeral Tray With Locking Ring +5 Left: [employer] 03/31/2026 [id number] / Implanted: Qty: 1 on 10/19/2016 by Austin Bowles MD Shoulder / [id number] Results Not on fileafter 03/31/2017 Insurance Payer Benefit Plan / Group Subscriber ID Type Phone Address [facility] MEDICARE [facility] DUAL COMPLETE MCR xxxxxxxxx O [facility] MEDICAID [facility] COMM STAR+ BRIA xxxxxxxxx HMO
--- NOTE | 2018-04-01 15:08 | RAD REPORT ---
EXAM DESCRIPTION: CT - Head C Spine Mpr Wo Con - 04/01/2018 2:50 pm CLINICAL HISTORY: Left arm numbness COMPARISON: September 2007 TECHNIQUE: Computed axial tomography of the head and cervical spine was obtained. Sagittal and coronal reconstruction was performed. All CT scans are performed using dose optimization technique as appropriate and may include automated exposure control or mA/KV adjustment according to patient size. FINDINGS: An intracranial bleed is not seen. The ventricles are normal in caliber. Mild low-density areas within periventricular, deep and subcortical white matter likely represent ischemic changes sec ondary to small vessel disease An extra-axial fluid collection is not noted.Fluid within the visualized sinuses and mastoids is not seen A cervical fracture is not visualized. No dislocation is noted. Spondylosis C3-4 results in mild to moderate narrowing of the right neural foramina Spondylosis C4-5 results in moderate narrowing of the left neural foramina. Spondylosis C6-7 results in moderate to marked narrowing of the right neural foramina. Mild central spinal stenosis IMPRESSION: No acute intracranial abnormality is seen. A cervical fracture is not visualized. Spondylosis as described above. If the patient continues to have symptoms to suggest intracranial /sp inal cord pathology then MRI would be recommended
--- NOTE | 2018-04-01 15:31 | RAD REPORT ---
EXAM DESCRIPTION: Patrick Single View04/01/2018 3:24 pm CLINICAL HISTORY: Chest pain COMPARISON: February 2018 FINDINGS: The lungs appear clear of acute infiltrate. The heart is borderline enlarged. Small to moderate hiatal hernia IMPRESSION: No acute abnormalities displayed
[2018-04-01 15:58] LABS: Absolute Lymphocytes (CBC) 1.3 K/uL (0.7-4.9); Absolute Monocytes 0.6 K/uL (0.1-1.3); Absolute Neutrophil 5.3 K/uL (1.8-8.0); Basophils % 0.4 % (0-1.3); Eosinophils % 0.8 % (0-4.4); Hematocrit 31.9 % (36.0-45.0); MCH 21.7 pg (27.0-35.0); MCV 68.9 fL (80-100); MPV 7.6 fL (7.6-11.3); Monocytes % 8.1 % (3.3-12.3); RBC Red Blood Cell Count 4.63 M/uL (3.86-4.86)
[2018-04-01 16:02] LABS: Protime INR 1.03
[2018-04-01 16:16] LABS: ALT/SGPT 38 U/L (12-78); AST/SGOT 34 U/L (15-37); Albumin 3.2 g/dL (3.4-5.0); Alkaline Phosphatase 73 U/L (45-117); BUN Blood Urea Nitrogen 31 mg/dL (7-18); Bicarbonate 26 mmol/L (21-32); Bilirubin Direct 0.1 mg/dL (0-0.2); Bilirubin Total 0.3 mg/dL (0.2-1.0); Glucose Level 113 mg/dL (74-106); Magnesium 2.2 mg/dL (1.8-2.4); NT PRO-BNP 1972 pg/mL (<125); Potassium 3.4 mmol/L (3.5-5.1); Protein, Total 6.9 g/dL (6.4-8.2); Sodium Level 142 mmol/L (136-145); Troponin (Emerg Dept Use Only) < 0.02 ng/mL (0.0-0.045)
[2018-04-01] MEDS ORDERED: HYDROCODONE/APAP 5/325 MG TAB ONE (16:25)
[2018-04-01 16:34] LABS: Urine Blood NEGATIVE (NEG); Urine Glucose NEGATIVE (NEG); Urine Protein NEGATIVE (NEG); Urine pH 5.5 (5.0-7.0)
[2018-04-01 16:40] LABS: Platelet Estimate ADEQ; Urine White Blood Cell Casts OK
[2018-04-01 16:41] LABS: Anisocytosis 1+; Blood Morphology Comment NOTED (NOT SEEN); Hypochromasia 1+
--- NOTE | 2018-04-01 17:59 | ER ---
Nurse's Notes [facility] Name: Marjan Fleming Age: 63 yrs Sex: Female : 1955 Arrival Date: 04/01/2018 Time: 13:47 Bed 6 Private MD: Lele Rahman H Diagnosis: Precordial pain Presentation: 04/01 13:50 Presenting complaint: Patient states: chest pain with left arm numbness. pt also aa5 reports SOB. Reports symptoms began today. Pt states "I haven't smoked a cigarette in about 6 or 7 days". 13:50 Transition of care: patient was not received from another setting of care. Onset of aa5 symptoms was April 01, 2018. Risk Assessment: Do you want to hurt yourself or someone else? Patient reports no desire to harm self or others. Initial Sepsis Screen: Does the patient meet any 2 criteria? No. Patient's initial sepsis screen is negative. Does the patient have a suspected source of infection? No. Patient's initial sepsis screen is negative. Care prior to arrival: None. 13:50 Method Of Arrival: Ambulatory aa5 13:50 Acuity: BLAYNE 3 aa5 Historical: - Allergies: 13:50 Bactrim DS; aa5 13:50 Codeine; aa5 13:50 metoclopramide HCl; aa5 13:50 Stadol; aa5 - Home Meds: 18:42 Lisinopril Oral [Active]; Metoprolol Tartrate Oral [Active]; Lorazepam Oral [Active]; jl7 Albuterol Inhl [Active]; Norvasc Oral [Active]; Hydralazine Oral [Active]; Trimethoprim-Sulfamethoxazole Oral [Active]; raltegravir oral oral [Active]; Descovy 200-25 mg oral tab 1 tab once daily [Active]; - PMHx: 13:50 Anxiety; Bipolar disorder; Chronic pain; COPD; esophageal varices; Hepatitis; HIV; aa5 Hypertension; Migraines; Panic Attacks; 17:54 Atrial Fib; gs - PSHx: 13:50 Cholecystectomy; bilateral shoulder replacement; Appendectomy; aa5 - Immunization history:: Adult Immunizations unknown. - Social history:: Smoking status: Patient/guardian denies using tobacco. - Ebola Screening: : No symptoms or risks identified at this time. Screenin:44 Abuse screen: Denies threats or abuse. Denies injuries from another. Nutritional jl7 screening: No deficits noted. Tuberculosis screening: No symptoms or risk factors identified. Fall Risk IV access (20 points). Total Hauser Fall Scale indicates No Risk (0-24 pts). Assessment: 14:30 General: Appears in no apparent distress. uncomfortable, Behavior is cooperative, jl7 anxious. Pain: Complains of pain in mid-sternal area Pain radiates to left arm Pain currently is 10 out of 10 on a pain scale. Pain began gradually. Neuro: Level of Consciousness is awake, alert, obeys commands, Oriented to person, place, time, situation. Cardiovascular: Heart tones present Patient's skin is warm and dry. Rhythm is irregular. Respiratory: Airway is patent Respiratory effort is even, unlabored, Respiratory pattern is regular, symmetrical, Breath sounds are clear bilaterally. GI: No signs and/or symptoms were reported involving the gastrointestinal system. : No signs and/or symptoms were reported regarding the genitourinary system. EENT: No signs and/or symptoms were reported regarding the EENT system. Derm: Skin is pink, warm \\T\\ dry. Musculoskeletal: No signs and/or symptoms reported regarding the musculoskeletal system. 15:25 Reassessment: Pt's IV will not pull blood, lab notified and will pull labs. jl7 16:20 Reassessment: Patient appears in no apparent distress at this time. Patient and/or jl7 family updated on plan of care and expected duration. Pain level reassessed. Patient is alert, oriented x 3, equal unlabored respirations, skin warm/dry/pink. 17:28 Reassessment: Pt requesting medication for anxiety, provider notified, no new orders jl7 received at this time. 18:09 Reassessment: Pt states "I'm having those pains again and am nervous about going home jl7 because my is out of town." Dr. Hudson ordered to watch the pt until the medication starts to work and re-evaluate at that time. 19:59 Reassessment: Patient appears in no apparent distress at this time. Patient and/or tl2 family updated on plan of care and expected duration. Pain level reassessed. Patient is alert, oriented x 3, equal unlabored respirations, skin warm/dry/pink. Pt stable and ready for transport to floor after shift change. Pt given food per her request. Vital Signs: 13:51 BP 117 / 82; Pulse 76; Resp 20 S; Temp 97.5(TE); Pulse Ox 100% on R/A; Weight 91.63 kg aa5 (R); Height 5 ft. 4 in. (162.56 cm) (R); Pain 10/10; 15:41 BP 134 / 78; Pulse 94; Resp 16 S; Pulse Ox 97% on R/A; jl7 16:20 BP 140 / 95; Pulse 89; Resp 16 S; Pulse Ox 99% on R/A; jl7 18:06 BP 136 / 106; Pulse 84; Resp 16 S; Pulse Ox 100% on R/A; jl7 19:29 BP 127 / 105; Pulse 95; Resp 18; Pulse Ox 100% on R/A; tl2 13:51 Body Mass Index 34.67 (91.63 kg, 162.56 cm) aa5 Vitals: 19:29 Cardiac Rhythm Assessment Atrial fibrillation. tl2 ED Course: 13:47 Patient arrived in ED. mr 13:48 Lele Rahman, is Private Physician. mr 13:50 Arm band placed on. aa5 13:57 Triage completed. aa5 14:01 Albert Hudson MD is Attending Physician. gs 14:10 EKG done, by ED staff, reviewed by Albert Hudson MD. jb1 14:27 Jesica Ramos, RN is Primary Nurse. jl7 14:30 Patient has correct armband on for positive identification. Placed in gown. Bed in low jl7 position. Call light in reach. Side rails up X 1. technical engineer on. Pulse ox on. NIBP on. Warm blanket given. 14:30 Patient maintains SpO2 saturation greater than 95% on room air. jl7 14:42 CT completed. Patient moved to CT via stretcher. Patient moved back from CT. cw1 14:51 Head C Spine Mpr Wo Con In Process Unspecified. EDMS 15:05 X-ray completed. Portable x-ray completed in exam room. Patient tolerated procedure jb2 well. 15:15 Inserted saline lock: 24 gauge in right forearm, using aseptic technique. Missed jl7 attempt(s): 22 gauge in right forearm. Bleeding controlled, band aid applied, catheter tip intact. 15:22 XRAY Chest (1 view) In Process Unspecified. EDMS 15:32 Urine collected: clean catch specimen, clear, aditi colored. jb1 17:57 Per Crane MD is Referral Physician. gs 18:21 Liz Qureshi MD is Hospitalizing Provider. gs 18:28 Radiology exam delayed due to IV insertion attempt and/or patient not having eh appropriate IV at this time. 18:42 Inserted saline lock: 24 gauge in left hand, using aseptic technique. iw 18:51 CT completed. Patient tolerated procedure well. Patient moved back from CT. bq 19:03 Primary Nurse role handed off by Jesica Ramos RN jl7 20:01 No provider procedures requiring assistance completed. Patient admitted, IV remains in tl2 place. Administered Medications: 16:19 Drug: Trafford 5 mg-325 mg 1 tabs Route: PO; jl7 17:00 Follow up: Response: No adverse reaction; Pain is decreased jl7 18:06 Drug: Valium 5 mg Route: PO; jl7 19:02 Follow up: Response: No adverse reaction jl7 Outcome: 17:58 Discharge ordered by . gs 18:21 Decision to Hospitalize by Provider. gs 20:01 Admitted to Tele accompanied by tech, via stretcher, room 428, with chart. tl2 20:01 Condition: stable 20:01 Discharge instructions given to patient, Instructed on the need for admit. 20:40 Patient left the ED. tl2 Signatures: Dispatcher [employer] EDMS Medhat Nino jb1 Jessie Hill Jesse jb2 Asael Ledbetter Esthela Gottlieb Jacquelin Meier RN RN iw Lindsay Schulz RN RN aa5 Madonna Clarke cw1 Olga Lidia Hall RN RN tl2 Jesica Ramos RN RN jl7 Albert Hudson MD MD Corrections: (The following items were deleted from the chart) 13:59 13:50 Presenting complaint: Patient states: chest pain with left arm numbness. pt also aa5 reports SOB. Reports symptoms began today aa5
--- NOTE | 2018-04-01 17:59 | EDPHYS ---
Physician Documentation [facility] Name: Marjan Fleming Age: 63 yrs Sex: Female : 1955 Arrival Date: 04/01/2018 Time: 13:47 Bed 6 Private MD: Lele Rahman H ED Physician Albert Hudson HPI: 04/01 17:49 This 63 yrs old Female presents to ER via Ambulatory with complaints of Chest gs Pain, Arm Pain. 17:49 The patient or guardian reports chest pain that is located primarily in the left gs clavicle. Onset: gradually. The pain radiates to the left arm, says tingling no radiation of pain. Associated signs and symptoms: Pertinent negatives: shortness of breath. The chest pain is described as dull. Duration: The patient or guardian reports multiple episodes, that wax and wane, with no pattern, the episodes last approximately 2 minute(s). Modifying factors: the symptoms are aggravated by movement, twisting torso. Severity of pain: At its worst the pain was moderate in the emergency department the pain has improved markedly. The patient has experienced similar episodes in the past, a few times. Historical: - Allergies: 13:50 Bactrim DS; aa5 13:50 Codeine; aa5 13:50 metoclopramide HCl; aa5 13:50 Stadol; aa5 - Home Meds: 18:42 Lisinopril Oral [Active]; Metoprolol Tartrate Oral [Active]; Lorazepam Oral [Active]; jl7 Albuterol Inhl [Active]; Norvasc Oral [Active]; Hydralazine Oral [Active]; Trimethoprim-Sulfamethoxazole Oral [Active]; raltegravir oral oral [Active]; Descovy 200-25 mg oral tab 1 tab once daily [Active]; - PMHx: 13:50 Anxiety; Bipolar disorder; Chronic pain; COPD; esophageal varices; Hepatitis; HIV; aa5 Hypertension; Migraines; Panic Attacks; 17:54 Atrial Fib; gs - PSHx: 13:50 Cholecystectomy; bilateral shoulder replacement; Appendectomy; aa5 - Immunization history:: Adult Immunizations unknown. - Social history:: Smoking status: Patient/guardian denies using tobacco. - Ebola Screening: : No symptoms or risks identified at this time. ROS: 17:49 Neck: Positive for bony tenderness, of the lower cervical area, says has tender spot gs for several weeks. Exam: 17:54 Head/Face: Normocephalic, atraumatic. Eyes: Pupils equal round and reactive to light, gs extra-ocular motions intact. Lids and lashes normal. Conjunctiva and sclera are non-icteric and not injected. Cornea within normal limits. Periorbital areas with no swelling, redness, or edema. ENT: Nares patent. No nasal discharge, no septal abnormalities noted. Tympanic membranes are normal and external auditory canals are clear. Oropharynx with no redness, swelling, or masses, exudates, or evidence of obstruction, uvula midline. Mucous membranes moist. Chest/axilla: Normal chest wall appearance and motion. Nontender with no deformity. No lesions are appreciated. Respiratory: Lungs have equal breath sounds bilaterally, clear to auscultation and percussion. No rales, rhonchi or wheezes noted. No increased work of breathing, no retractions or nasal flaring. Abdomen/GI: Soft, non-tender, with normal bowel sounds. No distension or tympany. No guarding or rebound. No evidence of tenderness throughout. Back: No spinal tenderness. No costovertebral tenderness. Full range of motion. Skin: Warm, dry with normal turgor. Normal color with no rashes, no lesions, and no evidence of cellulitis. MS/ Extremity: Pulses equal, no cyanosis. Neurovascular intact. Full, normal range of motion. Neuro: Awake and alert, GCS 15, oriented to person, place, time, and situation. Cranial nerves II-XII grossly intact. Motor strength 5/5 in all extremities. Sensory grossly intact. Cerebellar exam normal. Normal gait. 17:54 Constitutional: The patient appears in no acute distress, alert, awake. 17:54 Neck: C-spine: vertebral tenderness, that is moderate, appreciated at C6, no mass. 17:54 Cardiovascular: Rate: normal, Rhythm: irregularly irregular, Pulses: no pulse deficits are appreciated, Heart sounds: normal, Edema: is not appreciated. 17:54 ECG was reviewed by the Attending Physician. Vital Signs: 13:51 BP 117 / 82; Pulse 76; Resp 20 S; Temp 97.5(TE); Pulse Ox 100% on R/A; Weight 91.63 kg aa5 (R); Height 5 ft. 4 in. (162.56 cm) (R); Pain 10/10; 15:41 BP 134 / 78; Pulse 94; Resp 16 S; Pulse Ox 97% on R/A; jl7 16:20 BP 140 / 95; Pulse 89; Resp 16 S; Pulse Ox 99% on R/A; jl7 18:06 BP 136 / 106; Pulse 84; Resp 16 S; Pulse Ox 100% on R/A; jl7 19:29 BP 127 / 105; Pulse 95; Resp 18; Pulse Ox 100% on R/A; tl2 13:51 Body Mass Index 34.67 (91.63 kg, 162.56 cm) aa5 MDM: 14:18 Patient medically screened. gs 17:54 Differential diagnosis: abnormal EKG, acute myocardial infarction, chest wall pain, gs pleurisy, pneumonia. Data reviewed: vital signs, nurses notes. Counseling: I had a detailed discussion with the patient and/or guardian regarding: the historical points, exam findings, and any diagnostic results supporting the discharge/admit diagnosis, lab results, radiology results, the need for outpatient follow up. Response to treatment: the patient's symptoms have resolved after treatment, the patient's pain is gone. 18:17 ED course: pt had recurrence of pain will ct chest place in obs. 04/01 14:19 Order name: Basic Metabolic Panel; Complete Time: 16:22 04/01 14:19 Order name: CBC with Diff; Complete Time: 17:49 04/01 14:19 Order name: LFT's; Complete Time: 16:22 04/01 14:19 Order name: Magnesium; Complete Time: 16:22 04/01 14:19 Order name: NT PRO-BNP; Complete Time: 16:22 04/01 14:19 Order name: PT-INR; Complete Time: 16:22 04/01 14:19 Order name: Troponin (emerg Dept Use Only); Complete Time: 16:22 04/01 14:19 Order name: XRAY Chest (1 view); Complete Time: 15:49 04/01 14:42 Order name: Head C Spine Mpr Wo Con; Complete Time: 15:49 EDMS 04/01 15:30 Order name: Urine Dipstick--Ancillary (enter results); Complete Time: 17:49 eb 04/01 16:06 Order name: CBC Smear Scan; Complete Time: 17:49 EDMS 04/01 16:23 Order name: Troponin (emerg Dept Use Only); Complete Time: 17:49 04/01 18:16 Order name: CT Chest W/ Con 04/01 14:19 Order name: EKG; Complete Time: 14:19 04/01 14:19 Order name: Cardiac monitoring; Complete Time: 14:23 04/01 14:19 Order name: EKG - Nurse/Tech; Complete Time: 14:20 04/01 14:19 Order name: IV Saline Lock; Complete Time: 15:36 04/01 14:19 Order name: Labs collected and sent; Complete Time: 15:51 04/01 14:19 Order name: O2 Per Protocol; Complete Time: 14:29 04/01 14:19 Order name: O2 Sat Monitoring; Complete Time: 14:29 04/01 19:13 Order name: CT EDMS EC:54 Rate is 89 beats/min. Rhythm is regular. QRS interval is normal. QT interval is normal. gs T waves are Flattened. Clinical impression: Abnormal EKG without significant change and Atrial Fibrillation. Interpreted by me. Administered Medications: 16:19 Drug: Marion 5 mg-325 mg 1 tabs Route: PO; jl7 17:00 Follow up: Response: No adverse reaction; Pain is decreased jl7 18:06 Drug: Valium 5 mg Route: PO; jl7 19:02 Follow up: Response: No adverse reaction jl7 Disposition: 18:17 Critical Care:. Disposition: 04/01/18 18:21 Hospitalization ordered by Liz Qureshi for Observation. Preliminary diagnosis is Precordial pain. - Bed requested for Telemetry/MedSurg (observation). - Status is Observation. tl2 - Condition is Stable. - Problem is new. - Symptoms are resolved. UTI on Admission? No Critical care time excluding procedures: 18:17 Critical care time: Bedside Care: 10 minutes, Consultation: 10 minutes, Family Intervention: 10 minutes. Total time: 30 minutes Signatures: Dispatcher [employer] [facility] Mary Hernandez RN Lindsay Quiroz RN RN aa5 Olga Lidia Hall RN RN tl2 Jesica Ramos RN RN jl7 Albert Hudson MD MD Corrections: (The following items were deleted from the chart) 14:42 14:19 C Spine Wo Con+CT.RAD.BRZ ordered. EDAK EDMS 18:21 17:58 04/01/2018 17:58 Discharged to Home. Impression: Chest pain, unspecified; Sprain gs of ligaments of cervical spine. Condition is Stable. Forms are Medication Reconciliation Form, Thank You Letter, Antibiotic Education, Prescription Opioid Use. Follow up: Private Physician; When: 2 - 3 days; Reason: Re-evaluation by your physician. Follow up: Per Crane; When: 2 - 3 days; Reason: Re-evaluation by your physician. Problem is new. Symptoms are resolved. 18:48 18:21 Hospitalization Ordered by Liz Qureshi MD for Observation. Preliminary dw diagnosis is Precordial pain. Bed requested for Telemetry/MedSurg (observation). Status is Observation. Condition is Stable. Problem is new. Symptoms are resolved. UTI on Admission? No. gs 20:40 18:48 04/01/2018 18:21 Hospitalization Ordered by Liz Qureshi MD for Observation. tl2 Preliminary diagnosis is Precordial pain. Bed requested for Telemetry/MedSurg (observation). Status is Observation. Condition is Stable. Problem is new. Symptoms are resolved. UTI on Admission? No. dw
[2018-04-01] MEDS ORDERED: DIAZEPAM 5 MG TABLET ONE (18:08)
[2018-04-01] MEDS ORDERED: ACETAMINOPHEN 500 MG TAB PO PRN (18:38)
--- NOTE | 2018-04-01 19:12 | RAD REPORT ---
EXAM DESCRIPTION: CT - Thorax W/ Con - 04/01/2018 6:54 pm CLINICAL HISTORY: Chest pain and shortness of breath COMPARISON: 2014 TECHNIQUE: Computed axial tomography of the chest was obtained. 100 cc Isovue 300 was administered i ntravenously. All CT scans are performed using dose optimization technique as appropriate and may include automated exposure control or mA/KV adjustment according to patient size. FINDINGS: Minimal tree-in-bud opacities left lower lobe. Right lung clear No mediastinal or hilar lymphadenopathy is seen. A pleural effusion is not present. A pericardial effusion is not seen. A small to moderate hiatal hernia The most inferior slice demonstrates 3.5 centimeter cyst likely arising from the left kidney IMPRESSION: Minimal tree-in-bud opacities left lower lobe may indicate a minimal atypical infection
[2018-04-01 21:19] VITALS: BMI 33.2
[2018-04-01] MEDS: MORPHINE 4 MG/ML SYR IV PRN (21:50)
[2018-04-01] MEDS: METOPROLOL TAR 50 MG TAB PO SCH (21:51)
[2018-04-01] MEDS: ALPRAZOLAM 0.25 MG TABLET PO PRN (21:51)
[2018-04-02] MEDS: MORPHINE 4 MG/ML SYR IV PRN ×5 (02:00→23:09)
[2018-04-02] MEDS ORDERED: ONDANSETRON 4 MG/2 ML VIAL IV ONE (02:18)
[2018-04-02] MEDS ORDERED: METHYLPREDNISOLONE 125 MG INJ IV ONE (02:18)
[2018-04-02] MEDS: ALPRAZOLAM 0.25 MG TABLET PO PRN (05:40)
[2018-04-02] MEDS ORDERED: HOME MED 1 EA UNK (Albuterol Sulfate [Ventolin Hfa] 2 PUFF) IH PRN (08:12)
--- NOTE | 2018-04-02 08:13 | P.HP ---
Certification for Inpatient Patient admitted to: Observation With expected LOS: <2 Midnights Patient will require the following post-hospital care: None Practitioner: I am a practitioner with admitting privileges, knowledge of patient current condition, hospital course, and medical plan of care. Services: Services provided to patient in accordance with Admission requirements found in Title 42 Section 412.3 of the Code of Federal Regulations Patient History Date of Service: 04/01/18 Reason for admission: Chest pain rule out acute coronary syndrome History of Present Illness: Patient is a 63-year-old female came into the hospital with chest discomfort. Patient has a history of HIV and is treated at [facility]. She has been taking her prescriptions as she is been prescribed. She came into the hospital for further evaluation for her chest pain. Pain was mainly in the sternal region with no radiation. The pain was towards the left side of the sternum. Patient came into the hospital for further evaluation. Patient workup in the ER did not reveal any acute abnormalities. She had a CT of the head and neck which did not show any acute abnormality. CT of the chest did show a tree-in- bud pattern suggestive of atypical infection however patient clinically denies any fever, shakes, or chills. At this time will go ahead and admit the patient to the hospital. Her pain is reproducible and she is feeling nauseated. Will go ahead and admit her to the hospital for further evaluation. Allergies fentanyl Allergy (Severe, Verified 06/30/17 03:39) Hives butorphanol tartrate [From Stadol] Allergy (Verified 06/30/17 03:39) confusion metoclopramide HCl [From Reglan] Allergy (Verified 06/30/17 03:39) Shortness of breath sulfamethoxazole [From Bactrim] Allergy (Verified 06/30/17 03:39) Hives/Rash trimethoprim [From Bactrim] Allergy (Verified 06/30/17 03:39) Hives/Rash codeine Adverse Reaction (Mild, Verified 03/12/18 17:38) Nausea/Vomiting Bactrim DS Allergy (Uncoded 07/23/17 16:47) Unknown Home Medications: Raltegravir Potassium [Isentress] 400 mg PO BID 02/28/12 Lorazepam [Ativan] 2 mg PO BID* PRN 04/02/12 Sertraline [Zoloft*] 200 mg PO DAILY 09/15/12 Amlodipine [Norvasc*] 10 mg PO DAILY 01/04/13 Tiotropium [Spiriva Handihaler*] 18 mcg IH DAILY #1 cap.w.dev 10/24/14 Esomeprazole Mag Trihydrate [Nexium] 40 mg PO DAILY #30 capsule. 02/27/16 Emtricitabine/Tenofov Alafenam [Descovy 200-25 mg Tablet] 1 tab PO BEDTIME 10/05 Acetaminophen [Acetaminophen Extra Strength] 1 tab PO Q6HP PRN 06/30/17 Albuterol Neb [Proventil 0.083% Neb Soln] 2.5 mg IH BID 03/12/18 predniSONE [Prednisone*] 20 mg PO DAILY 03/12/18 Albuterol Sulfate [Ventolin Hfa] 2 puff IH TID PRN #90 hfa.aer.ad 03/13/18 Benzonatate [Tessalon Perle*] 100 mg PO TID PRN #15 cap 03/13/18 Budesonide/Formoterol Fumarate [Symbicort 160-4.5 Mcg Inhaler] 2 puff IH BID #1 hfa.aer.ad 03/13/18 Hydralazine HCl 50 mg PO BID #60 tablet 03/13/18 - Past Medical/Surgical History Has patient received pneumonia vaccine in the past: Yes Diabetic: No -: HIV diag ~ [address] Yohan Cardenas in [place] -: . -: Bipolar disorder Dr Krause in [place] -: Hypertension -: COPD -: Tobacco abuse -: Alcohol abuse -: Anemia likely of chronic disease -: constrictor of urethia -: Appendectomy -: Cholecystectomy -: left shoulder rotated cuff -: Right foot repair -: Right shoulder replacement Psychosocial/ Personal History: She lives at home. She is not . - Family History Father Medical History: Kidney disease Mother Medical History: Other (see notes) Notes: Epilepsy, chronic pain - Social History Smoking Status: Former smoker Alcohol use: Yes CD- Drugs: Yes Caffeine use: Yes Place of Residence: Home Review of Systems 10-point ROS is otherwise unremarkable Physical Examination - Vital Signs Temperature: 97.9 F Blood Pressure: 97/60 Pulse: 67 Respirations: 18 Pulse Ox (%): 97 - Physical Exam General: Alert, In no apparent distress, Oriented x3 HEENT: Atraumatic, PERRLA, Mucous membr. moist/pink, EOMI, Sclerae nonicteric Neck: Supple, 2+ carotid pulse no bruit, No LAD, Without JVD or thyroid abnormality Respiratory: Clear to auscultation bilaterally, Normal air movement Cardiovascular: Regular rate/rhythm, Normal S1 S2, No murmurs Gastrointestinal: Normal bowel sounds, Soft and benign, Non-distended, No tenderness Musculoskeletal: No clubbing, No tenderness Integumentary: No rashes Neurological: Normal gait, Normal speech, Normal strength at 5/5 x4 extr, Normal tone, Sensation intact, Cranial nerves 3-12 intact, Normal affect Lymphatics: No axilla or inguinal lymphadenopathy - Studies Laboratory Data (last 24 hrs) 04/01/18 15:33: PT 12.2, INR 1.03 04/01/18 15:33: WBC 7.3, Hgb 10.0 L, Hct 31.9 L, Plt Count 232 04/01/18 15:33: Sodium 142, Potassium 3.4 L, BUN 31 H, Creatinine 1.10, Glucose 113 H, Magnesium 2.2, Total Bilirubin 0.3, AST 34, ALT 38, Alkaline Phosphatase 73 Assessment & Plan - Problems (Diagnosis) (1) Chest pain, rule out acute myocardial infarction Current Visit: Yes Status: Acute (2) Bipolar disorder Onset Date: 05/26/15 Current Visit: No Status: Chronic Qualifiers: (3) COPD (chronic obstructive pulmonary disease) Onset Date: 05/26/15 Current Visit: No Status: Chronic Qualifiers: (4) HIV positive Onset Date: 10/23/14 Current Visit: No Status: Chronic (5) Hepatitis C Onset Date: 10/06/16 Current Visit: No Status: Chronic Qualifiers: (6) Hiatal hernia with GERD Onset Date: 02/26/16 Current Visit: No Status: Chronic (7) Hypertension Onset Date: 05/26/15 Current Visit: No Status: Chronic Qualifiers: - Plan 1. Serial troponins and EKG 2. Monitor symptoms for upper respiratory or bronchial infection as patient did have some inflammatory changes on CT scan and with history of HIV will need to make sure patient has not developed any opportunistic infections. This is a likely and she has been taking her HIV meds and no clinical signs of an infection 3. Anti-inflammatory for musculoskeletal pain 4. Anti-platelet therapy, anti coagulation, beta-vitor, statin, and O2 as needed 5. IV morphine for pain 6. Hold off on antibiotics for now and reassess her symptoms over the next 24 hr 7. Continue Protonix 8. GI and DVT prophylax Discharge Plan: Home Plan to discharge in: 24 Hours - Advance Directives Does patient have a Living Will: No Does patient have a Durable POA for Healthcare: No - Code Status/Comfort Care Code Status Assessed: Yes Code Status: Full Code Critical Care: No Time Spent Managing PTS Care (In Minutes): 50
[2018-04-02] MEDS ORDERED: ACETAMINOPHEN 500 MG TAB PO PRN (08:23)
[2018-04-02] MEDS: ISENTRESS 400 MG TABLET PO SCH ×2 (09:00→20:56)
[2018-04-02] MEDS ORDERED: BENZONATATE 100 MG CAP PO PRN (09:00)
[2018-04-02] MEDS ORDERED: ALBUTEROL 2.5 MG/3 ML NEB SOL NEB SCH (09:00)
[2018-04-02] MEDS: AMLODIPINE 10 MG TAB PO SCH (09:35)
[2018-04-02] MEDS: ASPIRIN EC 81 MG TAB PO SCH (09:35)
[2018-04-02] MEDS: PANTOPRAZOLE 40MG TABLET PO SCH (09:35)
[2018-04-02] MEDS: METOPROLOL TAR 50 MG TAB PO SCH ×2 (09:35→20:53)
[2018-04-02] MEDS: predniSONE 20 MG TAB PO SCH (09:35)
[2018-04-02] MEDS: ENOXAPARIN 40 MG/0.4 ML SQ SCH (09:36)
[2018-04-02] MEDS: HYDRALAZINE HCL 25 MG TABLET PO SCH ×2 (09:36→20:52)
[2018-04-02] MEDS: SERTRALINE HCL 100 MG TAB PO SCH (09:36)
--- NOTE | 2018-04-02 11:25 | P.PN ---
Subjective Date of Service: 04/02/18 (Hospitalist note) Chief Complaint: Chest pain rule out acute coronary syndrome Patient is 63 years of age admitted with chest pain with a history of COPD also complains of severe neck pain eye pain is radiating to the left arm intermittent every 15 min she takes significant amounts of Valium and temazepam at home for panic attacks does not taken any medications since end february still having intermittent discomfort patient complains that 4 mg of morphine is not enough Review of Systems Unremarkable Physical Examination - Vital Signs Temperature: 97.9 F Blood Pressure: 113/79 Pulse: 100 Respirations: 18 Pulse Ox (%): 97 - Physical Exam General: Alert, Oriented x3 HEENT: Atraumatic Neck: Supple Respiratory: Clear to auscultation bilaterally Cardiovascular: No edema, Regular rate/rhythm, Normal S1 S2 Gastrointestinal: Normal bowel sounds, Soft and benign - Studies Laboratory Data (last 24 hrs) 04/01/18 15:33: PT 12.2, INR 1.03 04/01/18 15:33: WBC 7.3, Hgb 10.0 L, Hct 31.9 L, Plt Count 232 04/01/18 15:33: Sodium 142, Potassium 3.4 L, BUN 31 H, Creatinine 1.10, Glucose 113 H, Magnesium 2.2, Total Bilirubin 0.3, AST 34, ALT 38, Alkaline Phosphatase 73 Assessment & Plan - Problems (Diagnosis) (1) Chest pain, rule out acute myocardial infarction Current Visit: Yes Status: Acute Plan: Patient is 63 years of age admitted with chest pain suggestive of coronary artery disease she has risk factors await cardiology evaluation she is probably going to need a stress test patient has microcytic anemia elevated BNP opponents are negative EKG is not available in addition she is hypokalemic patient is significant doses of diazepam will need to reduce the dose also takes temazepam at night is a all been prescribed by Dr. Rahman continue with bronchodilator therapy DT scan nonspecific changes doubt infection and study history of COPD vital signs all stable (2) Microcytic anemia Current Visit: Yes Status: Acute Plan: I have ordered iron studies she will need GI evaluation to rule out source of possible GI bleed Plan to discharge in: 24 Hours
[2018-04-02 12:29] LABS: Ferritin 10.3 ng/mL (8-388); Thyroid Stimulating Hormone 0.675 uIU/mL (0.360-3.740)
[2018-04-02] MEDS: LORAZEPAM 1 MG TABLET PO PRN (14:02)
[2018-04-02] MEDS: ONDANSETRON 4 MG/2 ML VIAL IV PRN ×3 (15:05→22:46)
[2018-04-02] MEDS: ARFORMOTEROL TARTRATE 15 MCG/2 ML VIAL.NEB NEB SCH (19:25)
--- NOTE | 2018-04-02 19:42 | CON ---
Date of Consultation: 04/02/[address] Qureshi's service on 04/01/2018. The patient was seen on 04/02/2018. Reason For Consultation: Chest pain with atrial fibrillation. History Of Present Illness: Ms. Fleming is a 63-year-old woman. Has an extensive past medical histor y with bipolar disorder, COPD, chronic pain, hypertension, panic disorder. She is HIV positive. Has a history of hepatitis, migraine headache, and atrial fibrillation in the past. Came in with chest pain, atrial fibrillation, and arm pain, all of that had resolved by the time I saw her. CT of her c hest showed a possible atypical infection. She is afebrile. No syncope or palpitation reported by h er. Allergies: TO BACTRIM, REGLAN, CODEINE, AND FENTANYL. Review of Systems: Negative. Social History: Negative. Family History: Negative. Medications: At home included inhalers, Norvasc, Nexium, Neurontin, prednisone, hydralazine. Physical Examination: General: She is in sinus rhythm now. No acute distress. HEENT: Negative. Neck: Supple with no bruit. Chest: Clear. Cardiac: Revealed regular rhythm and rate. No murmurs, gallops, or rubs. Abdomen: Benign. Extremities: Revealed no clubbing, cyanosis, or edema. Diagnostic Data: Showed a hemoglobin of 10, potassium 3.4. BNP of 1972. Chest x-ray is negative. Head and neck CT was negative. Chest CT showed atypical infection. Impression And Plan: Atypical chest pain probably secondary to atrial fibrillation with rapid ventri cular response. The patient need to continue her home medication. We need to add beta-blockers and aspirin. Continue her Lovenox for now. Get an echocardiogram on her. Check her thyroid-stimulating hormone. Depending what her echo shows, we decide whether she is a candidate for anticoagulation, a lthough with her history of human immunodeficiency virus and hepatitis, I would be very reluctant. M ay be worth doing a Lexiscan on Ms. Fleming as well. She needs CT of her chest investigated further a s far as her atypical infection. She has anemia, hypokalemia, that is being corrected. Her chronic obstructive pulmonary disease is stable. Her hypertension is well controlled. Her chronic obstructi ve pulmonary disease and bipolar disorders are well controlled. NB/MODL Voice ID: [id number] Report ID: [id number]
[2018-04-02] MEDS ORDERED: Symbicort 160-4.5 Mcg Inhaler IH SCH (21:00)
[2018-04-02] MEDS ORDERED: DESCOVY PO SCH (21:00)
[2018-04-03] MEDS: PANTOPRAZOLE 40MG TABLET PO SCH (06:36)
--- NOTE | 2018-04-03 07:03 | EKG ---
Test Date: 2018-04-02 Test Time: 18:56:14 Decorator Mannequin: CARMENCITA MEASUREMENT RESULTS: Intervals: Rate: 103 RI: QRSD: 80 QT: 322 QTc: 421 [place]amo: P: RI: QRS: 6 T: 204 INTERPRETIVE STATEMENTS: Atrial fibrillation with rapid ventricular response Minimal voltage criteria for LVH, may be normal variant ST & T wave abnormality, consider inferior ischemia or digitalis effect ST & T wave abnormality, consider anterolateral ischemia or digitalis effect Abnormal ECG Compared to ECG 04/01/2018 14:08:44 No significant changes Electronically Signed On 04-03-18 07:02:22 SHAKE PACKER by Per Crane
--- NOTE | 2018-04-03 07:07 | EKG ---
Test Date: 2018-04-01 Test Time: 14:08:44 Jewelry Designer: ALBER MEASUREMENT RESULTS: Intervals: Rate: 89 NE: QRSD: 82 QT: 380 QTc: 462 Ronks: P: NE: QRS: -1 T: -53 INTERPRETIVE STATEMENTS: Atrial fibrillation with a competing junctional pacemaker Voltage criteria for left ventricular hypertrophy ST & T wave abnormality, consider anterolateral ischemia or digitalis effect Abnormal ECG Compared to ECG 03/12/2018 10:56:32 Left ventricular hypertrophy now present Possible ischemia now present Sinus rhythm no longer present ST (T wave) deviation still present Electronically Signed On 04-03-18 07:03:55 CHIEF OF HARBOR PATROL by Per Crane
[2018-04-03] MEDS ORDERED: REGADENOSON 0.4 MG/5 ML SYR IV ONE (08:00)
[2018-04-03] MEDS: ARFORMOTEROL TARTRATE 15 MCG/2 ML VIAL.NEB NEB SCH (08:45)
[2018-04-03 12:26] VITALS: BP 114/82; TEMP 97.1
[2018-04-03] MEDS: ISENTRESS 400 MG TABLET PO SCH (12:30)
[2018-04-03] MEDS: predniSONE 20 MG TAB PO SCH (12:31)
[2018-04-03] MEDS: ENOXAPARIN 40 MG/0.4 ML SQ SCH (12:31)
[2018-04-03] MEDS: HYDRALAZINE HCL 25 MG TABLET PO SCH (12:31)
[2018-04-03] MEDS: SERTRALINE HCL 100 MG TAB PO SCH (12:31)
[2018-04-03] MEDS: METOPROLOL TAR 50 MG TAB PO SCH (12:32)
[2018-04-03] MEDS: AMLODIPINE 10 MG TAB PO SCH (12:32)
[2018-04-03] MEDS: ASPIRIN EC 81 MG TAB PO SCH (12:32)
--- NOTE | 2018-04-03 12:38 | RAD REPORT ---
EXAM DESCRIPTION: NM - Rest Stress Cardiac Imaging - 04/03/2018 12:29 pm CLINICAL HISTORY: Chest pain COMPARISON: May 2015 TECHNIQUE: The patient was administered 10.4 mCi of Tc 99m Sestamibi prior to resting SPECT imaging of the heart. The patient was then administered 30.5 mCi of Tc 99m Sestamibi following exercise or ph armacologic stress. Multiplanar SPECT images were reviewed. FINDINGS: The end diastolic volume is 88 ml, the end systolic volume is 37 ml, and the ejection frac tion is 57 %. Ejection fraction and ventricular volumes are similar to the comparison. No stress-induced ischemic changes are identifiable. The asymmetric activity, ventricular dilatation and apex accumulation findings detailed May 2015 are not identifiable on the current examination. No fixed defect to indicate an area of scarring. IMPRESSION: No stress-induced ischemic change or other suspicious finding. Ventricular volumes and ejection fraction are normal range and not significantly different from the 016 comparison.
[2018-04-03] MEDS: LORAZEPAM 1 MG TABLET PO PRN (14:14)
--- NOTE | 2018-04-03 15:43 | TREADPHA ---
DX: CHEST PAIN Date of Study: 04/03/2018 Ht: 5 4 Wt: 193 lb 8 oz Consulting Physician: JOSH MEDICATIONS: TYLENOL, XANAX, NORVASC, PROVENTIL, ASPIRIN, BROVANA, LOVENOX HISTORY: 63 YEAR OLD FEMALE WITH COMPLAINTS OF CHEST PAIN. MEDICAL HISTORY OF ANXIETY, BIPOLAR DISORDER, CHRONIC PAIN, COPD, ESOPHAGEAL VARICES, HEPATITIS, HIV, HYPERTENSION, MIGRANIENES, PANIC ATTACKS, ATRIAL FIBRILLATION. PHYSICIAL EXAMINATION: RESTING B.P.: 108/72 RESTING H.R.: 76 RESTING EKG: ATRIAL FIBRILLATION, NON SPECIFIC T ABNORMALITY. PROTOCOL: LEXISCAN EXERCISE TIME: 3:30 B.P. AT PEAK STRESS: 116/86 IMPRESSION: LEXISCAN INJECTED, CARDIOLITE INJECTED PER PROTOCOL. NO SUPRAVENTRICULAR TACHYCARDIA. NO VENTRICULAR TACHYCARDIA. OCCASIONAL PREMATURE VENTRICULAR COMPLEXES. CHEST PAIN 9/10 THROUGHOUT STRESS. SEE NUCLEAR MEDICINE REPORT. NON DIAGNOSTIC EKG WITH LEXISCAN STRESS.
--- NOTE | 2018-04-03 16:00 | ECHO ---
HEIGHT: 5 ft 4 in WEIGHT: 193 lb 8 oz DATE OF STUDY: 04/03/[address]: Liz Qureshi MD 2-DIMENSIONAL: YES M.MODE: YES DOPPLER: YES COLOR FLOW: YES TDS: NO PORTABLE: NO DEFINITY: NO BUBBLE STUDY: NO DIAGNOSIS: ATRIAL FBRILLATION WITH RAPID VENTRICULAR RESPONSE CARDIAC HISTORY: CATHERIZATION: NO SURGERY: NO PROSTHETIC VALVE: NO PACEMAKER: NO MEASUREMENTS (cm) DIASTOLIC (NORMALS) SYSTOLIC (NORMALS) IVSd 1.2 (0.6-1.2) LA Diam 4.4 (1.9-4.0) LVEF 52% LVIDd 4.5 (3.5-5.7) LVIDs 3.3 (2.0-3.5) %FS 26% LVPWd 1.3 (0.6-1.2) Ao Diam 3.1 (2.0-3.7) 2 DIMENSIONAL ASSESSMENT: RIGHT ATRIUM: NORMAL LEFT ATRIUM: DILATED RIGHT VENTRICLE: NORMAL LEFT VENTRICLE: NORMAL TRICUSPID VALVE: NORMAL MITRAL VALVE: NORMAL PULMONIC VALVE: NORMAL AORTIC VALVE: NORMAL PERICARDIAL EFFUSION: NONE AORTIC ROOT: NORMAL LEFT VENTRICULAR WALL MOTION: NORMAL. DOPPLER/COLOR FLOW: MILD MITRAL REGURGITATION, MILD TRICUSPID REGURGITATION. NORMAL RIGHT VENTRICULAR SYSTOLIC PRESSURE. COMMENTS: NORMAL LEFT VENTRICULAR EJECTION FRACTION. DILATED LEFT ATIRUM. MILD MITRAL AND TRICUSPID REGURGITATION. ATRIAL FIBRILLATION 70-85 BEATS PER MINUTE. TECHNOLOGIST: MINDA COLES
--- NOTE | 2018-04-03 16:29 | P.SSS ---
Patient History Date of Service: 04/03/18 Reason for admission: Chest pain rule out acute coronary syndrome History of Present Illness: See HPI Allergies fentanyl Allergy (Severe, Verified 06/30/17 03:39) Hives butorphanol tartrate [From Stadol] Allergy (Verified 06/30/17 03:39) confusion metoclopramide HCl [From Reglan] Allergy (Verified 06/30/17 03:39) Shortness of breath sulfamethoxazole [From Bactrim] Allergy (Verified 06/30/17 03:39) Hives/Rash trimethoprim [From Bactrim] Allergy (Verified 06/30/17 03:39) Hives/Rash codeine Adverse Reaction (Mild, Verified 03/12/18 17:38) Nausea/Vomiting Bactrim DS Allergy (Uncoded 07/23/17 16:47) Unknown Home Medications: Raltegravir Potassium [Isentress] 400 mg PO BID 02/28/12 Lorazepam [Ativan] 2 mg PO BID* PRN 04/02/12 Sertraline [Zoloft*] 200 mg PO DAILY 09/15/12 Amlodipine [Norvasc*] 10 mg PO DAILY 01/04/13 Tiotropium [Spiriva Handihaler*] 18 mcg IH DAILY #1 cap.w.dev 10/24/14 Esomeprazole Mag Trihydrate [Nexium] 40 mg PO DAILY #30 capsule.dr 02/27/16 Emtricitabine/Tenofov Alafenam [Descovy 200-25 mg Tablet] 1 tab PO BEDTIME 10/05 Acetaminophen [Acetaminophen Extra Strength] 1 tab PO Q6HP PRN 06/30/17 Albuterol Neb [Proventil 0.083% Neb Soln] 2.5 mg IH BID 03/12/18 predniSONE [Prednisone*] 20 mg PO DAILY 03/12/18 Albuterol Sulfate [Ventolin Hfa] 2 puff IH TID PRN #90 hfa.aer.ad 03/13/18 Benzonatate [Tessalon Perle*] 100 mg PO TID PRN #15 cap 03/13/18 Budesonide/Formoterol Fumarate [Symbicort 160-4.5 Mcg Inhaler] 2 puff IH BID #1 hfa.aer.ad 03/13/18 Hydralazine HCl 50 mg PO BID #60 tablet 03/13/18 Ipratropium Neb [Atrovent*] 1 inh IH BIDP PRN 04/02/18 - Past Medical/Surgical History Has patient received pneumonia vaccine in the past: Yes Diabetic: No -: HIV diag ~ [address] Yohan Cardenas in [place] -: . -: Bipolar disorder Dr Krause in [place] -: Hypertension -: COPD -: Tobacco abuse -: Alcohol abuse -: Anemia likely of chronic disease -: constrictor of urethia -: Appendectomy -: Cholecystectomy -: left shoulder rotated cuff -: Right foot repair -: Right shoulder replacement -: left shoulder rotated cuff Psychosocial/ Personal History: She lives at home. She is not . - Family History Father -: Kidney disease Mother -: Other (see notes) Notes: Epilepsy, chronic pain - Social History Smoking Status: Former smoker Alcohol use: Yes CD- Drugs: Yes Caffeine use: Yes Place of Residence: Home Review of Systems 10-point ROS is otherwise unremarkable Physical Examination - Vital Signs Temperature: 97.1 F Blood Pressure: 114/82 Pulse: 87 Respirations: 18 Pulse Ox (%): 97 - Physical Exam General: Alert, In no apparent distress HEENT: Atraumatic, PERRLA, Mucous membr. moist/pink, EOMI, Sclerae nonicteric Neck: Supple, 2+ carotid pulse no bruit, No LAD, Without JVD or thyroid abnormality Respiratory: Clear to auscultation bilaterally, Normal air movement Cardiovascular: Regular rate/rhythm, Normal S1 S2 Gastrointestinal: Normal bowel sounds, No tenderness Musculoskeletal: No tenderness Integumentary: No rashes Neurological: Normal gait, Normal speech, Normal strength at 5/5 x4 extr, Normal tone, Normal affect Lymphatics: No axilla or inguinal lymphadenopathy - Diagnosis (Problem(s)) (1) Chest pain, rule out acute myocardial infarction Onset Date: 04/03/18 Current Visit: Yes Status: Acute (2) Depressive disorder Onset Date: 05/26/15 Current Visit: No Status: Acute (3) GERD (gastroesophageal reflux disease) Current Visit: No Status: Acute (4) Anxiety Onset Date: 05/26/15 Current Visit: No Status: Chronic (5) Bipolar disorder Onset Date: 05/26/15 Current Visit: No Status: Chronic Qualifiers: (6) COPD (chronic obstructive pulmonary disease) Onset Date: 05/26/15 Current Visit: No Status: Chronic Qualifiers: (7) HIV positive Onset Date: 10/23/14 Current Visit: No Status: Chronic (8) Hepatitis C Onset Date: 10/06/16 Current Visit: No Status: Chronic Qualifiers: (9) Hiatal hernia with GERD Onset Date: 02/26/16 Current Visit: No Status: Chronic (10) Hypertension Onset Date: 05/26/15 Current Visit: No Status: Chronic Qualifiers: Treatment Summary: Overall during the hospital stay patient remained stay patient remained stable Patient was initially admitted to the hospital for chest pain ACS rule out. Troponin X 2 was negative and EKG was Negative. Echo and stress is negative as well. Patient was seen by cardiology here who recommended patient to be discharged home safely and follow up with primary care provider about 1-2 weeks post discharge. - Disposition Disposition: ROUTINE DISCHARGE Condition: GOOD Diet: Regular Activity: Ad pricila
[2018-04-03 17:53] VITALS: O2SAT 98
== END 2018-04-03 18:32 | disposition home or self-care (01) ==
LOC: ER 13:44 → INTOOBSV 18:22 → ERHOLD 18:22 → 4TH 20:13
PROVIDERS: ADMIT Hospitalist; ATTEND Hospitalist
DX: R07.9 Chest pain, unspecified (principal); F41.8 Other specified anxiety disorders; K21.9 Gastro-esophageal reflux disease without esophagitis; J44.9 Chronic obstructive pulmonary disease, unspecified; F31.9 Bipolar disorder, unspecified; Z21 Asymptomatic human immunodeficiency virus [HIV] infection status; B18.2 Chronic viral hepatitis C; K44.9 Diaphragmatic hernia without obstruction or gangrene; I10 Essential (primary) hypertension; Z88.2 Allergy status to sulfonamides; E87.6 Hypokalemia; I48.91 Unspecified atrial fibrillation; D50.9 Iron deficiency anemia, unspecified
CPT/HCPCS: 36415; 70450; 71045; 71260; 72125; 78452; 80048; 80061; 80076; 81003; 82728; 83540; 83735; 83880; 84443; 84466; 84484 ×4; 85025; 85610; 93005; 93017; 93306; 99285; A9500; G0378 ×2; J1650 ×2; J2405 ×4; J2785; J2930; J7605; Q9967; J7512

== ENCOUNTER 2018-04-18 19:40 | Emergency (ER) | payer OTHER ==
--- OUTSIDE RECORDS SUMMARY | 2018-04-18 19:42 | XMS REPORT | Clinical Summary ---
:1955 Author Organization [facility] Address [address] [place] [address] Care Team Providers Name Role Phone Asked, No Pcp Primary Care Provider Unavailable Allergies Active Allergy Reactions Severity Noted Date Comments Codeine 07/30/2016 Metoclopramide Hcl 09/23/2016 Medications Medication Sig Dispensed Refills Start Date End Date Status lisinopril Take 40 mg by 0 Active (PRINIVIL,ZESTRIL) 40 mouth. mg tablet metoprolol tartrate Take 100 mg by 0 Active (LOPRESSOR) 100 mg mouth. tablet amLODIPine (NORVASC) Take 10 mg by 0 Active 10 mg tablet mouth. LORAZepam (ATIVAN) 2 Take 2 mg by 0 Active MG tablet mouth. ARIPiprazole (ABILIFY) Take 5 mg by 0 Active 5 MG tablet mouth. sertraline (ZOLOFT) 25 200 mg every 0 Active MG tablet morning. triamterene-hydrochlor Take 1 tablet by 0 Active othiazid (MAXZIDE-25) mouth daily. 37.5-25 mg per tablet DESCOVY 200-25 mg 5 08/09/2016 Active tablet ISENTRESS 400 mg TK 1 T PO BID 3 08/07/2016 Active tablet esomeprazole (NexIUM) Take 40 mg by 0 Active 40 MG capsule mouth 2 (two) times a day. clobetasol (TEMOVATE) Apply topically 2 0 Active 0.05 % ointment (two) times a [...] Assigned at Date Recorded Not on file Job Start Date Occupation Industry Not on file Not on file Not on file Travel History Travel Start Travel End No recent travel history available. Last Filed Vital Signs Not on file Plan of Treatment Health Maintenance Due Date Last Done Comments CERVICAL CANCER SCREENING 01/22/1977 BREAST CANCER SCREENING 01/22/2006 COLON CANCER SCREENING 01/22/2006 SHINGRIX VACCINE (1 of 2) 01/22/2006 ZOSTER VACCINE 2016 INFLUENZA VACCINE 12/21/2017 Implants Implanted Type Area E Mail System Administrator Device Shelf Model / Identifier Expiration Serial / Date Lot Versa-Dial/Comp Ti Std Taper Used W/25mm Glenoid Basplate - [id number] N/ A: N/A [employer] 01/22/2026 [id number] / Implanted: Qty: 1 on 10/19/2016 by Austin Bowles MD IMPLANT / DEVICES [id number] 41mm Comprehensive Reverse Shoulder Glenosphere Ba - [id number] IPM N/A: N/A [employer] 11/21/2023 [id number] / Implanted: Qty: 1 on 10/19/2016 by Austin Bowles MD IMPLANT / DEVICES [id number] Arcom Xl 44-41 Std +3 Humeral Brg - [id number] IPM Left: [employer] 07/20 XL [id number] / Implanted: Qty: 1 on 10/19/2016 by Austin Bowles MD IMPLANT Shoulder / DEVICES [id number] Humeral Tray With Locking Ring +5 Left: [employer] 03/31/2026 [id number] / Implanted: Qty: 1 on 10/19/2016 by Austin Bowles MD Shoulder / [id number] Results Not on fileafter 04/17/2017 Insurance Payer Benefit Plan / Group Subscriber ID Type Phone Address [facility] DUAL COMPLETE MCR xxxxxxxxx O [facility] COMM STAR+ BRIA xxxxxxxxx O Advance Directives Patient has advance care planning documents on file. For more information, please contact:Derrick [id number] [place] [address]
[2018-04-18] MEDS ORDERED: ALBUTEROL 2.5 MG/3 ML NEB SOL ONE (20:49)
[2018-04-18] MEDS ORDERED: IPRATROPIUM BROM 0.5MG/2.5ML ONE (20:50)
[2018-04-18 21:25] LABS: Absolute Lymphocytes (CBC) 0.8 K/uL (0.7-4.9); Absolute Monocytes 0.6 K/uL (0.1-1.3); Absolute Neutrophil 3.8 K/uL (1.8-8.0); Basophils % 0.5 % (0-1.3); Eosinophils % 1.9 % (0-4.4); Hematocrit 28.9 % (36.0-45.0); Lymphocytes % 14.6 % (15.3-44.8); MPV 7.3 fL (7.6-11.3); Monocytes % 10.6 % (3.3-12.3); RBC Red Blood Cell Count 4.25 M/uL (3.86-4.86)
[2018-04-18 21:37] LABS: Protime INR 1.03
[2018-04-18 21:46] LABS: Urine White Blood Cell Casts OK
[2018-04-18 21:47] LABS: Blood Morphology Comment NOTED (NOT SEEN); Hypochromasia 1+; Platelet Estimate ADEQ
[2018-04-18 21:58] LABS: ALT/SGPT 37 U/L (12-78); AST/SGOT 34 U/L (15-37); Albumin 3.1 g/dL (3.4-5.0); Alkaline Phosphatase 77 U/L (45-117); BUN Blood Urea Nitrogen 19 mg/dL (7-18); Bicarbonate 27 mmol/L (21-32); Bilirubin Direct 0.1 mg/dL (0-0.2); Bilirubin Total 0.3 mg/dL (0.2-1.0); Glucose Level 103 mg/dL (74-106); Magnesium 2.2 mg/dL (1.8-2.4); NT PRO-BNP 642 pg/mL (<125); Potassium 4.1 mmol/L (3.5-5.1); Protein, Total 6.8 g/dL (6.4-8.2); Sodium Level 144 mmol/L (136-145); Troponin (Emerg Dept Use Only) < 0.02 ng/mL (0.0-0.045)
--- NOTE | 2018-04-18 22:20 | ER ---
Nurse's Notes [facility] Name: Marjan Fleming Age: 63 yrs Sex: Female : 1955 Arrival Date: 04/18/2018 Time: 19:44 Bed 27 Private MD: Lele Rahman H Diagnosis: Chronic obstructive pulmonary disease with (acute) exacerbation Presentation: 04/18 20:06 Presenting complaint: Patient states: "I went to the heart doctor and he told me that I aj1 have pneumonia. I was discharged 2 weeks ago for chest pains." States that she was diagnosed with pneumonia during her hospital stay. She followed up with the food beverage attendant today. Did not follow up with her PHCP. Reports fever TMax 101 at home. Reports chest pain, shortness of breath. Transition of care: patient was not received from another setting of care. Onset of symptoms was April 17, 2018. Risk Assessment: Do you want to hurt yourself or someone else? Patient reports no desire to harm self or others. Initial Sepsis Screen: Does the patient meet any 2 criteria? No. Patient's initial sepsis screen is negative. Does the patient have a suspected source of infection? Yes: Productive cough/pneumonia. Care prior to arrival: None. 20:06 Method Of Arrival: Ambulatory aj1 20:06 Acuity: BLAYNE 3 aj1 Triage Assessment: 20:12 General: Appears in no apparent distress. uncomfortable, Behavior is calm, cooperative, aj1 appropriate for age. Pain: Complains of pain in chest Pain currently is 10 out of 10 on a pain scale. Neuro: Level of Consciousness is awake, alert, obeys commands. Cardiovascular: Patient's skin is warm and dry. Respiratory: Reports shortness of breath cough that is productive, Onset: The symptoms/episode began/occurred yesterday, the patient has mild shortness of breath. Historical: - Allergies: 20:12 Bactrim DS; aj1 20:12 Stadol; aj1 20:12 Codeine; aj1 20:12 metoclopramide HCl; aj1 - Home Meds: 20:12 Albuterol Inhl [Active]; Descovy 200-25 mg Oral tab 1 tab once daily [Active]; aj1 Hydralazine Oral [Active]; lisinopril Oral [Active]; Lorazepam Oral [Active]; Metoprolol Tartrate Oral [Active]; Norvasc Oral [Active]; raltegravir Oral [Active]; - PMHx: 20:12 Anxiety; Atrial Fib; Bipolar disorder; Chronic pain; COPD; esophageal varices; aj1 Hepatitis; HIV; Hypertension; Migraines; Panic Attacks; - Immunization history:: Flu vaccine is up to date. - Social history:: Smoking status: Patient uses tobacco products, States that she quit smoking 3 weeks ago. - Ebola Screening: : Patient denies travel to an Ebola-affected area in the 21 days before illness onset. Screenin:47 Abuse screen: Denies threats or abuse. Denies injuries from another. Nutritional aa1 screening: No deficits noted. Tuberculosis screening: No symptoms or risk factors identified. Fall Risk None identified. Assessment: 20:47 General: Appears in no apparent distress. comfortable, Behavior is calm, cooperative, aa1 appropriate for age. Pain: Complains of pain in chest \\T\\ head Quality of pain is described as throbbing, Aggravated by cough. Neuro: Level of Consciousness is awake, alert, obeys commands, Oriented to person, place, time, situation, Moves all extremities. Speech is normal, Reports headache. Cardiovascular: Heart tones S1 S2 present Rhythm is regular. Respiratory: Reports cough that is productive, pain with cough Airway is patent Respiratory effort is even, unlabored, Respiratory pattern is regular, symmetrical, Breath sounds with wheezes bilaterally. the patient has moderate shortness of breath. GI: No signs and/or symptoms were reported involving the gastrointestinal system. : No signs and/or symptoms were reported regarding the genitourinary system. EENT: No signs and/or symptoms were reported regarding the EENT system. Derm: Skin is intact, is healthy with good turgor, Skin is pink, warm \\T\\ dry. Musculoskeletal: Circulation, motion, and sensation intact. Capillary refill < 3 seconds. 21:12 Reassessment: Pt states, "When I cough I feel like my head and chest are gonna explode aa1 and I feel an anxiety attack coming on, do you think the doctor will given me something for my anxiety and my pain?" Provider notified; no order received at this time. 22:10 Reassessment: Patient appears in no apparent distress at this time. Patient and/or aa1 family updated on plan of care and expected duration. Pain level reassessed. Patient is alert, oriented x 3, equal unlabored respirations, skin warm/dry/pink. Pt states, "If he's not going to give me any pain medication then just tell him to discharge me" Provider notified. 22:30 Reassessment: Discussed d/c \\T\\ f/u instructions with pt; denies questions or concerns at aa1 this time. Vital Signs: 20:12 BP 148 / 94; Pulse 73; Resp 22; Temp 97.8; Pulse Ox 98% on R/A; Weight 93.89 kg (R); aj1 Height 5 ft. 4 in. (162.56 cm) (R); Pain 10/10; 21:20 BP 155 / 89; Pulse 82; Resp 20; Pulse Ox 100% on Nebulizer Mask; aa1 22:30 BP 143 / 90; Pulse 85; Resp 20; Pulse Ox 97% on R/A; aa1 20:12 Body Mass Index 35.53 (93.89 kg, 162.56 cm) aj1 ED Course: 19:44 Patient arrived in ED. es 19:49 Lele Rahman DO is Private Physician. es 20:10 Triage completed. aj1 20:20 Austin Raza NP is PHCP. pm1 20:20 Albert Hudson MD is Attending Physician. pm1 20:35 Emely Das, ASHLEY is Primary Nurse. aa1 20:47 Patient has correct armband on for positive identification. Bed in low position. Call aa1 light in reach. Pulse ox on. NIBP on. Warm blanket given. 20:50 EKG done, by ED staff, reviewed by Albert Hudson MD. aa1 20:55 Initial lab(s) drawn, by me, sent to lab. First set of blood cultures drawn by me. aa1 Inserted saline lock: 24 gauge in left hand, using aseptic technique. Blood collected. 20:56 XRAY Chest (1 view) In Process Unspecified. EDMS 21:12 Second set of blood cultures drawn by me. aa1 22:19 Lele Rahman DO is Referral Physician. pm1 22:30 No provider procedures requiring assistance completed. IV discontinued, intact, aa1 bleeding controlled, No redness/swelling at site. Pressure dressing applied. Administered Medications: 21:10 Drug: Albuterol - atroVENT (3:1) (2.5 mg - 0.5 mg) 3 ml Route: Nebulizer; aa1 Outcome: 22:19 Discharge ordered by . pm1 22:30 Discharged to home ambulatory, with significant other. aa1 22:30 Condition: good 22:30 Discharge instructions given to patient, Instructed on discharge instructions, follow up and referral plans. medication usage, Demonstrated understanding of instructions, follow-up care, medications, Prescriptions given X 4. 22:33 Patient left the ED. aa1 Signatures: Dispatcher [employer] Teresa Albert RN RN aj1 Emely Das RN RN aa1 Indigo Larios Patrick, DIGITAL MARKETING ANALYST DIGITAL MARKETING ANALYST pm1
--- NOTE | 2018-04-18 22:20 | EDPHYS ---
Physician Documentation [facility] Name: Marjan Fleming Age: 63 yrs Sex: Female : 1955 Arrival Date: 04/18/2018 Time: 19:44 Bed 27 Private MD: Lele Rahman H ED Physician Albert Hudson HPI: 04/18 21:05 This 63 yrs old Female presents to ER via Ambulatory with complaints of pm1 Breathing Difficulty, Chest Congestion. 21:05 The patient has shortness of breath at rest. Onset: The symptoms/episode began/occurred pm1 3 week(s) ago. Duration: The symptoms are continuous. The patient's shortness of breath is aggravated by nothing, is alleviated by nothing. Associated signs and symptoms: Pertinent positives: productive cough, fever, Pertinent negatives: chest pain, nausea, vomiting. Severity of symptoms: in the emergency department the symptoms are unchanged. The patient has experienced similar episodes in the past, several times. Historical: - Allergies: 20:12 Bactrim DS; aj1 20:12 Stadol; aj1 20:12 Codeine; aj1 20:12 metoclopramide HCl; aj1 - Home Meds: 20:12 Albuterol Inhl [Active]; Descovy 200-25 mg Oral tab 1 tab once daily [Active]; aj1 Hydralazine Oral [Active]; lisinopril Oral [Active]; Lorazepam Oral [Active]; Metoprolol Tartrate Oral [Active]; Norvasc Oral [Active]; raltegravir Oral [Active]; - PMHx: 20:12 Anxiety; Atrial Fib; Bipolar disorder; Chronic pain; COPD; esophageal varices; aj1 Hepatitis; HIV; Hypertension; Migraines; Panic Attacks; - Immunization history:: Flu vaccine is up to date. - Social history:: Smoking status: Patient uses tobacco products, States that she quit smoking 3 weeks ago. - Ebola Screening: : Patient denies travel to an Ebola-affected area in the 21 days before illness onset. ROS: 21:05 Constitutional: Negative for fever, chills, and weight loss, Eyes: Negative for injury, pm1 pain, redness, and discharge, ENT: Negative for injury, pain, and discharge, Neck: Negative for injury, pain, and swelling, Cardiovascular: Negative for chest pain, palpitations, and edema. 21:05 Abdomen/GI: Negative for abdominal pain, nausea, vomiting, diarrhea, and constipation, Back: Negative for injury and pain, : Negative for injury, bleeding, discharge, and swelling, MS/Extremity: Negative for injury and deformity, Skin: Negative for injury, rash, and discoloration, Neuro: Negative for headache, weakness, numbness, tingling, and seizure. 21:05 Respiratory: Positive for cough, "sounds productive", shortness of breath, Negative for wheezing. Exam: 21:05 Constitutional: This is a well developed, well nourished patient who is awake, alert, pm1 and in no acute distress. Head/Face: Normocephalic, atraumatic. Eyes: Pupils equal round and reactive to light, extra-ocular motions intact. Lids and lashes normal. Conjunctiva and sclera are non-icteric and not injected. Cornea within normal limits. Periorbital areas with no swelling, redness, or edema. ENT: Nares patent. No nasal discharge, no septal abnormalities noted. Tympanic membranes are normal and external auditory canals are clear. Oropharynx with no redness, swelling, or masses, exudates, or evidence of obstruction, uvula midline. Mucous membranes moist. Neck: Trachea midline, no thyromegaly or masses palpated, and no cervical lymphadenopathy. Supple, full range of motion without nuchal rigidity, or vertebral point tenderness. No Meningismus. Chest/axilla: Normal chest wall appearance and motion. Nontender with no deformity. No lesions are appreciated. Cardiovascular: Regular rate and rhythm with a normal S1 and S2. No gallops, murmurs, or rubs. Normal PMI, no JVD. No pulse deficits. Respiratory: Lungs have equal breath sounds bilaterally, clear to auscultation and percussion. No rales, rhonchi or wheezes noted. No increased work of breathing, no retractions or nasal flaring. Abdomen/GI: Soft, non-tender, with normal bowel sounds. No distension or tympany. No guarding or rebound. No evidence of tenderness throughout. Back: No spinal tenderness. No costovertebral tenderness. Full range of motion. Skin: Warm, dry with normal turgor. Normal color with no rashes, no lesions, and no evidence of cellulitis. MS/ Extremity: Pulses equal, no cyanosis. Neurovascular intact. Full, normal range of motion. 21:05 Neuro: Orientation: is normal, Motor: is normal, Sensation: is normal, no obvious gross deficits. Vital Signs: 20:12 BP 148 / 94; Pulse 73; Resp 22; Temp 97.8; Pulse Ox 98% on R/A; Weight 93.89 kg (R); aj1 Height 5 ft. 4 in. (162.56 cm) (R); Pain 10/10; 21:20 BP 155 / 89; Pulse 82; Resp 20; Pulse Ox 100% on Nebulizer Mask; aa1 22:30 BP 143 / 90; Pulse 85; Resp 20; Pulse Ox 97% on R/A; aa1 20:12 Body Mass Index 35.53 (93.89 kg, 162.56 cm) aj1 MDM: 20:25 Patient medically screened. pm1 22:18 Data reviewed: vital signs. Data interpreted: Pulse oximetry: on room air is 100 %. pm1 Interpretation: normal. Counseling: I had a detailed discussion with the patient and/or guardian regarding: the historical points, exam findings, and any diagnostic results supporting the discharge/admit diagnosis, lab results, radiology results, the need for outpatient follow up, to return to the emergency department if symptoms worsen or persist or if there are any questions or concerns that arise at home. 04/18 20:31 Order name: Basic Metabolic Panel; Complete Time: 22:00 pm1 04/18 20:31 Order name: CBC with Diff; Complete Time: 21:49 pm1 04/18 20:31 Order name: LFT's; Complete Time: 22:00 pm1 04/18 20:31 Order name: Magnesium; Complete Time: 22:00 pm1 04/18 20:31 Order name: NT PRO-BNP; Complete Time: 22:00 pm1 04/18 20:31 Order name: PT-INR; Complete Time: 21:49 pm1 04/18 20:31 Order name: Troponin (emerg Dept Use Only); Complete Time: 22:00 pm1 04/18 20:31 Order name: XRAY Chest (1 view) pm1 04/18 20:31 Order name: EKG; Complete Time: 20:33 pm1 04/18 20:31 Order name: Cardiac monitoring; Complete Time: 20:40 pm1 11/27 20:31 Order name: EKG - Nurse/Tech; Complete Time: 21:16 pm1 04/18 20:31 Order name: Blood Culture Adult (2) pm1 04/18 21:33 Order name: CBC Smear Scan; Complete Time: 21:49 EDMS 04/18 20:31 Order name: IV Saline Lock; Complete Time: 21:17 pm1 04/18 20:31 Order name: Labs collected and sent; Complete Time: 21:17 pm1 04/18 20:31 Order name: O2 Per Protocol; Complete Time: 20:40 pm1 04/18 20:31 Order name: O2 Sat Monitoring; Complete Time: 20:40 pm1 Administered Medications: 21:10 Drug: Albuterol - atroVENT (3:1) (2.5 mg - 0.5 mg) 3 ml Route: Nebulizer; aa1 Disposition: 04/18/18 22:19 Discharged to Home. Impression: Chronic obstructive pulmonary disease with (acute) exacerbation. - Condition is Stable. - Discharge Instructions: Chronic Obstructive Pulmonary Disease. - Prescriptions for Zithromax Z- Niall 250 mg Oral Tablet - take 1 tablet by ORAL route as directed for 5 days Day 1 - take two (2) tablets one time. Day 2, 3, 4 , 5 take one (1) tablet once daily.; 6 tablet. Albuterol Sulfate 90 mcg/actuation - inhale 1-2 puff by INHALATION route every 4-6 hours; 1 Inhaler. Bromfed DM 2- 30-10 mg/5 mL Oral syrup - take 10 milliliter by ORAL route every 4 hours As needed; 200 milliliter. Medrol (Niall) 4 mg Oral Tablets, Dose Pack - take 1 tablet by ORAL route as directed - follow package instructions; 1 packet. - Medication Reconciliation Form, Thank You Letter, Antibiotic Education form. - Follow up: Emergency Department; When: As needed; Reason: Worsening of condition. Follow up: Lele Rahman DO; When: 2 - 3 days; Reason: Recheck today's complaints, Continuance of care, Re-evaluation by your physician. - Problem is new. - Symptoms have improved. Addendum: 04/21/2018 04:04 Co-signature as Attending Physician, Albert Hudson MD. g s Signatures: Dispatcher [employer] EDTeresa Martinez RN RN aj1 Emely Das RN RN aa1 Austin Raza, TIMBO SURGEON CHIEF pm1 Albert Hudson MD MD gs Corrections: (The following items were deleted from the chart) 04/18 22:33 22:19 04/18/2018 22:19 Discharged to Home. Impression: Chronic obstructive pulmonary aa1 disease with (acute) exacerbation. Condition is Stable. Forms are Medication Reconciliation Form, Thank You Letter, Antibiotic Education, Prescription Opioid Use. Follow up: Emergency Department; When: As needed; Reason: Worsening of condition. Follow up: Lele Rahman; When: 2 - 3 days; Reason: Recheck today's complaints, Continuance of care, Re-evaluation by your physician. Problem is new. Symptoms have improved. pm1
--- NOTE | 2018-04-19 07:18 | RAD REPORT ---
EXAM DESCRIPTION: RAD - Chest Single View - 04/18/2018 9:58 pm CLINICAL HISTORY: Cough, fever, shortness of breath COMPARISON: April 01 TECHNIQUE: AP portable chest image was obtained 4 hours . FINDINGS: No focal lung parenchymal process. Interstitial markings are similar to comparison. Heart size is prominent but smaller than seen April 01. No vascular engorgement. No measurable pleural e ffusion and no pneumothorax. No acute bony abnormality seen. No acute aortic finding. Bilateral shoul maryam prostheses in place. IMPRESSION: No acute cardiopulmonary process. No new or progressive finding April 01. Heart size is smaller than prior study.
[2018-04-19 10:01] VITALS: TEMP 97.8
[2018-04-19 10:02] VITALS: BP 155/89; O2SAT 100
--- NOTE | 2018-04-19 11:47 | EKG ---
Test Date: 2018-04-18 Test Time: 20:49:38 Weatherization Field Technician: ROBERT MEASUREMENT RESULTS: Intervals: Rate: 74 TX: 174 QRSD: 84 QT: 392 QTc: 435 Dyess: P: 33 TX: 174 QRS: 0 T: 19 INTERPRETIVE STATEMENTS: Sinus rhythm with premature atrial complexes Otherwise normal ECG Compared to ECG 04/02/2018 18:56:14 Atrial premature complex(es) now present Atrial fibrillation no longer present Left ventricular hypertrophy no longer present ST (T wave) deviation no longer present Possible ischemia no longer present Electronically Signed On 04-19-18 11:45:53 ANTHROPOLOGY AND ARCHEOLOGY INSTRUCTOR by Rich Grissom
== END 2018-04-18 22:33 | disposition home or self-care (01) ==
LOC: ER 19:40
DX: J44.1 Chronic obstructive pulmonary disease with (acute) exacerbation (principal); I10 Essential (primary) hypertension; I48.91 Unspecified atrial fibrillation; F41.9 Anxiety disorder, unspecified; F31.9 Bipolar disorder, unspecified; Z21 Asymptomatic human immunodeficiency virus [HIV] infection status; Z72.0 Tobacco use; Z88.1 Allergy status to other antibiotic agents; Z88.5 Allergy status to narcotic agent; Z88.8 Allergy status to other drugs, medicaments and biological substances
CPT/HCPCS: 36415; 71045; 80048; 80076; 83735; 83880; 84484; 85025; 85610; 87040; 93005; 94640; 99284

== ENCOUNTER 2018-04-20 12:15 | Emergency (ER) | payer OTHER ==
--- OUTSIDE RECORDS SUMMARY | 2018-04-20 12:17 | XMS REPORT | Clinical Summary ---
:1955 Author Organization [facility] Address [address] [place] [address] Care Team Providers Name Role Phone Asked, [...] INFLUENZA VACCINE 12/21/2017 Implants Implanted Type Area Motel Front Desk Attendant Device Shelf Model / Identifier Expiration Serial / Date Lot Versa-Dial/Comp Ti Std Taper Used W/25mm Glenoid Basplate - [id number] N/ A: N/A [employer] 01/22/2026 [id number] / Implanted: Qty: 1 on 10/19/2016 by Austin Bowles MD IMPLANT / DEVICES [id number] 41mm Comprehensive Reverse Shoulder Glenosphere Ba - [id number] N/A: N/A [employer] 11/21/2023 [id number] / Implanted: Qty: 1 on 10/19/2016 by Austin Bowles MD IMPLANT / DEVICES [id number] Arcom Xl 44-41 Std +3 Humeral Brg - [id number] IPM Left: [employer] 07/20 XL [id number] / Implanted: Qty: 1 on 10/19/2016 by Austin Bowles MD IMPLANT Shoulder / DEVICES [id number] Humeral Tray With Locking Ring +5 Left: [employer] 03/31/2026 [id number] / Implanted: Qty: 1 on 10/19/2016 by Austin Bowles MD Shoulder / [id number] Results Not on fileafter 04/19/2017 Insurance Payer Benefit Plan / Group Subscriber ID Type Phone Address [facility] MEDICARE [facility] DUAL COMPLETE MCR xxxxxxxxx O [facility] MEDICAID [employer] COMM STAR+ BRIA xxxxxxxxx O Advance Directives Patient has advance care planning documents on file. For more information, please contact:Derrick [id number] [place] [address]
--- NOTE | 2018-04-20 14:01 | ER ---
Nurse's Notes [facility] Name: Marjan Fleming Age: 63 yrs Sex: Female : 1955 Arrival Date: 04/20/2018 Time: 12:19 Bed 9 Private MD: Lele Rahman H Diagnosis: Urticaria Presentation: 04/20 12:33 Presenting complaint: Patient states: Itchy rash to trunk and groin since last night. aj Hive like appearance. Airway is patent, no adventitious breath sounds noted. Patient is in NAD. Transition of care: patient was not received from another setting of care. Onset of symptoms was April 19, 2018. Risk Assessment: Do you want to hurt yourself or someone else? Patient reports no desire to harm self or others. Initial Sepsis Screen: Does the patient meet any 2 criteria? No. Patient's initial sepsis screen is negative. Does the patient have a suspected source of infection? No. Patient's initial sepsis screen is negative. Care prior to arrival: None. 12:33 Method Of Arrival: Ambulatory aj 12:33 Acuity: BLAYNE 5 aj Triage Assessment: 12:36 General: Appears in no apparent distress. comfortable, Behavior is calm, cooperative, aj appropriate for age. Pain: Denies pain. Neuro: Level of Consciousness is awake, alert, obeys commands, Oriented to person, place, time, situation, Appropriate for age. Respiratory: Airway is patent Respiratory effort is even, unlabored, Respiratory pattern is regular, symmetrical. Derm: Skin is intact, is healthy with good turgor, Skin is pink, warm \T\ dry. normal, Rash noted that is itchy, red, on abdomen. Historical: - Allergies: 12:36 Bactrim DS; aj 12:36 Codeine; aj 12:36 metoclopramide HCl; aj 12:36 Stadol; aj - Home Meds: 12:36 Albuterol Inhl [Active]; Descovy 200-25 mg Oral tab 1 tab once daily [Active]; aj Hydralazine Oral [Active]; lisinopril Oral [Active]; Lorazepam Oral [Active]; Metoprolol Tartrate Oral [Active]; Norvasc Oral [Active]; raltegravir Oral [Active]; Trimethoprim-Sulfamethoxazole Oral [Active]; - PMHx: 12:36 Anxiety; Atrial Fib; Bipolar disorder; Chronic pain; COPD; esophageal varices; aj Hepatitis; HIV; Hypertension; Migraines; Panic Attacks; - PSHx: 12:36 Shoulder; aj - Immunization history:: Adult Immunizations up to date. - Social history:: Smoking status: Patient uses tobacco products, smokes one-half pack cigarettes per day. - Ebola Screening: : Patient negative for fever greater than or equal to 101.5 degrees Fahrenheit, and additional compatible Ebola Virus Disease symptoms Patient denies exposure to infectious person Patient denies travel to an Ebola-affected area in the 21 days before illness onset No symptoms or risks identified at this time. Vital Signs: 12:36 BP 129 / 78; Pulse 86; Resp 20; Temp 98.8; Pulse Ox 96% on R/A; Weight 93.89 kg; Height aj 5 ft. 4 in. (162.56 cm); 12:36 Body Mass Index 35.53 (93.89 kg, 162.56 cm) aj ED Course: 12:19 Patient arrived in ED. mr 12:20 Lele Rahman DO is Private Physician. mr 12:34 Triage completed. aj 12:36 Arm band placed on left wrist. Patient placed in waiting room, Patient notified of wait aj time. 13:09 Reno Manriquez PA is PHCP. jr8 13:09 Joey Jung MD is Attending Physician. jr8 13:31 Jacquelin Meier, RN is Primary Nurse. iw 14:00 Lele Rahman DO is Referral Physician. jr8 Administered Medications: 14:15 Drug: SOLU-Medrol 125 mg Route: IM; Site: right deltoid; iw 14:20 Drug: Benadryl 50 mg Route: PO; iw Outcome: 14:00 Discharge ordered by . jr8 14:29 Patient left the ED. iw Signatures: Danielle Chiang RN RN aj Rivera, Mary mr Jacquelin Meier, Reno Sumner RN, PA PA jrMiki
--- NOTE | 2018-04-20 14:01 | EDPHYS ---
Physician Documentation [facility] Name: Marjan Fleming Age: 63 yrs Sex: Female : 1955 Arrival Date: 04/20/2018 Time: 12:19 Bed 9 Private MD: Lele Rahman H ED Physician Joey Jung HPI: 04/20 13:58 This 63 yrs old Female presents to ER via Ambulatory with complaints of Rash. jr8 13:58 The patient's rash thought to be caused by an unknown cause. The rash is located on the jr8 body diffusely. The rash can be described as urticarial. Onset: The symptoms/episode began/occurred acutely, today. Associated signs and symptoms: Pertinent positives: itching. Severity of symptoms: At their worst the symptoms were mild in the emergency department the symptoms are unchanged. The patient has not experienced similar symptoms in the past. The patient has not recently seen a physician. Itching and rash that started acutely. No known reason for rash. No new meds, detergents, foods. . Historical: - Allergies: 12:36 Bactrim DS; aj 12:36 Codeine; aj 12:36 metoclopramide HCl; aj 12:36 Stadol; aj - Home Meds: 12:36 Albuterol Inhl [Active]; Descovy 200-25 mg Oral tab 1 tab once daily [Active]; aj Hydralazine Oral [Active]; lisinopril Oral [Active]; Lorazepam Oral [Active]; Metoprolol Tartrate Oral [Active]; Norvasc Oral [Active]; raltegravir Oral [Active]; Trimethoprim-Sulfamethoxazole Oral [Active]; - PMHx: 12:36 Anxiety; Atrial Fib; Bipolar disorder; Chronic pain; COPD; esophageal varices; aj Hepatitis; HIV; Hypertension; Migraines; Panic Attacks; - PSHx: 12:36 Shoulder; aj - Immunization history:: Adult Immunizations up to date. - Social history:: Smoking status: Patient uses tobacco products, smokes one-half pack cigarettes per day. - Ebola Screening: : Patient negative for fever greater than or equal to 101.5 degrees Fahrenheit, and additional compatible Ebola Virus Disease symptoms Patient denies exposure to infectious person Patient denies travel to an Ebola-affected area in the 21 days before illness onset No symptoms or risks identified at this time. ROS: 13:58 Eyes: Negative for injury, pain, redness, and discharge, ENT: Negative for injury, jr8 pain, and discharge, Neck: Negative for injury, pain, and swelling, Cardiovascular: Negative for chest pain, palpitations, and edema, Respiratory: Negative for shortness of breath, cough, wheezing, and pleuritic chest pain, Abdomen/GI: Negative for abdominal pain, nausea, vomiting, diarrhea, and constipation, Back: Negative for injury and pain, MS/Extremity: Negative for injury and deformity, Neuro: Negative for headache, weakness, numbness, tingling, and seizure. 13:58 Skin: Positive for rash, diffusely. Exam: 13:58 Eyes: Pupils equal round and reactive to light, extra-ocular motions intact. Lids and jr8 lashes normal. Conjunctiva and sclera are non-icteric and not injected. Cornea within normal limits. Periorbital areas with no swelling, redness, or edema. ENT: Nares patent. No nasal discharge, no septal abnormalities noted. Tympanic membranes are normal and external auditory canals are clear. Oropharynx with no redness, swelling, or masses, exudates, or evidence of obstruction, uvula midline. Mucous membranes moist. Neck: Trachea midline, no thyromegaly or masses palpated, and no cervical lymphadenopathy. Supple, full range of motion without nuchal rigidity, or vertebral point tenderness. No Meningismus. Cardiovascular: Regular rate and rhythm with a normal S1 and S2. No gallops, murmurs, or rubs. Normal PMI, no JVD. No pulse deficits. Respiratory: Lungs have equal breath sounds bilaterally, clear to auscultation and percussion. No rales, rhonchi or wheezes noted. No increased work of breathing, no retractions or nasal flaring. Abdomen/GI: Soft, non-tender, with normal bowel sounds. No distension or tympany. No guarding or rebound. No evidence of tenderness throughout. Back: No spinal tenderness. No costovertebral tenderness. Full range of motion. MS/ Extremity: Pulses equal, no cyanosis. Neurovascular intact. Full, normal range of motion. Neuro: Awake and alert, GCS 15, oriented to person, place, time, and situation. Cranial nerves II-XII grossly intact. Motor strength 5/5 in all extremities. Sensory grossly intact. Cerebellar exam normal. Normal gait. 13:58 Skin: rash a moderate rash is noted, rash can be described as urticarial, and is diffusely located. Vital Signs: 12:36 BP 129 / 78; Pulse 86; Resp 20; Temp 98.8; Pulse Ox 96% on R/A; Weight 93.89 kg; Height aj 5 ft. 4 in. (162.56 cm); 12:36 Body Mass Index 35.53 (93.89 kg, 162.56 cm) aj MDM: 13:10 Patient medically screened. jr8 13:58 Data reviewed: vital signs, nurses notes, and as a result, I will discharge patient. jr8 Data interpreted: Pulse oximetry: on room air is 96 %. Interpretation: normal. Counseling: I had a detailed discussion with the patient and/or guardian regarding: the historical points, exam findings, and any diagnostic results supporting the discharge/admit diagnosis, the need for outpatient follow up, a family practitioner, to return to the emergency department if symptoms worsen or persist or if there are any questions or concerns that arise at home. Response to treatment: the patient's symptoms have markedly improved after treatment. Administered Medications: 14:15 Drug: SOLU-Medrol 125 mg Route: IM; Site: right deltoid; iw 14:20 Drug: Benadryl 50 mg Route: PO; iw Disposition: 18:53 Co-signature as Attending Physician, Joey Jung MD I agree with the assessment and kdr plan of care. Disposition: 04/20/18 14:00 Discharged to Home. Impression: Urticaria. - Condition is Stable. - Discharge Instructions: Hives. - Prescriptions for Prednisone 20 mg Oral Tablet - take 2 tablet by ORAL route once daily for 5 days; 10 tablet. - Medication Reconciliation Form, Thank You Letter, Antibiotic Education, Prescription Opioid Use form. - Follow up: Lele Rahman DO; When: 2 - 3 days; Reason: Recheck today's complaints, Continuance of care, Re-evaluation by your physician. - Problem is new. - Symptoms have improved. - Notes: Benadryl 25 mg as needed Signatures: Danielle Chiang RN RN aj Rittger, Kevin, MD MD [facility] Jacquelin Meier RN RN Reno Manriquez PA PA jr8 Corrections: (The following items were deleted from the chart) 14:29 14:00 04/20/2018 14:00 Discharged to Home. Impression: Urticaria. Condition is Stable. iw Forms are Medication Reconciliation Form, Thank You Letter, Antibiotic Education, Prescription Opioid Use. Follow up: Lele Rahman; When: 2 - 3 days; Reason: Recheck today's complaints, Continuance of care, Re-evaluation by your physician. Problem is new. Symptoms have improved. jr8
[2018-04-20] MEDS ORDERED: METHYLPREDNISOLONE 125 MG INJ ONE (14:19)
[2018-04-20] MEDS ORDERED: DIPHENHYDRAMINE 25 MG TAB/CAP ONE (14:20)
[2018-04-20 14:43] VITALS: BP 129/78; TEMP 98.8; O2SAT 96
== END 2018-04-20 14:29 | disposition home or self-care (01) ==
LOC: ER 12:15
DX: L50.9 Urticaria, unspecified (principal); F17.210 Nicotine dependence, cigarettes, uncomplicated; I10 Essential (primary) hypertension; Z21 Asymptomatic human immunodeficiency virus [HIV] infection status; J44.9 Chronic obstructive pulmonary disease, unspecified; I48.91 Unspecified atrial fibrillation; F31.9 Bipolar disorder, unspecified; Z88.1 Allergy status to other antibiotic agents; Z88.5 Allergy status to narcotic agent; Z88.8 Allergy status to other drugs, medicaments and biological substances
CPT/HCPCS: 96372; 99282; J2930

== ENCOUNTER 2018-06-10 08:17 | Emergency (ER) | payer OTHER ==
--- OUTSIDE RECORDS SUMMARY | 2018-06-10 08:20 | XMS REPORT | Clinical Summary ---
:1955 Author Organization [facility] [employer] Address [address] [place] [address] Care Team Providers Name Role Phone Asked, [...] CANCER SCREENING 01/22/2006 COLON CANCER SCREENING 01/22/2006 SHINGLES VACCINES (1 of 2) 01/22/2006 INFLUENZA VACCINE 12/21/2017 Implants Implanted Type Area Scaffold Erector Device Shelf Model / Identifier Expiration Serial / Date Lot Versa-Dial/Comp Ti Std Taper Used W/25mm Glenoid Basplate - [id number] N/ A: N/A [employer] 01/22/2026 [id number] / Implanted: Qty: 1 on 10/19/2016 by Austin Bowles MD IMPLANT / DEVICES [id number] 41mm Comprehensive Reverse Shoulder Glenosphere Ba - [id number] N/A: N/A [employer] 11/21/2023 [id number] / Implanted: Qty: 1 on 10/19/2016 by Austin Bowles MD IMPLANT / DEVICES [id number] Arcom Xl 44-41 Std +3 Humeral Brg - [id number] Left: [employer] 07/20 XL [id number] / Implanted: Qty: 1 on 10/19/2016 by Austin Bowles MD IMPLANT Shoulder / DEVICES [id number] Humeral Tray With Locking Ring +5 Left: [employer] 03/31/2026 [id number] / Implanted: Qty: 1 on 10/19/2016 by Austin Bowles MD Shoulder / [id number] Results Not on fileafter 06/09/2017 Insurance Payer Benefit Plan / Group Subscriber ID Type Phone Address [facility] MEDICARE [facility] DUAL COMPLETE MCR xxxxxxxxx O [facility] MEDICAID [facility] COMM STAR+ BRIA xxxxxxxxx O Advance Directives Patient has advance care planning documents on file. For more information, please contact:Derrick [id number] [place] [address]
[2018-06-10] MEDS ORDERED: LIDOCAINE 1% W/EPI 1:100,000 MDV 50 ML VIAL ONE (09:12)
--- NOTE | 2018-06-10 09:16 | ER ---
Nurse's Notes [facility] Name: Marjan Fleming Age: 63 yrs Sex: Female : 1955 Arrival Date: 06/10/2018 Time: 08:21 Bed 19 Private MD: Lele Rahman H Diagnosis: Gastrointestinal hemorrhage, unspecified-external thromosed hemorrhoid, excised Presentation: 06/10 08:39 Presenting complaint: Patient states: abscess on right sided of buttock x 1 week, also em reports bleeding when wiping for a few days but doesn't know where the bleeding is coming from, denies fever, reports chills. Transition of care: patient was not received from another setting of care. Onset of symptoms was June 04, 2018. Risk Assessment: Do you want to hurt yourself or someone else? Patient reports no desire to harm self or others. Initial Sepsis Screen: Does the patient meet any 2 criteria? No. Patient's initial sepsis screen is negative. Does the patient have a suspected source of infection? Yes: Skin breakdown/wound. Care prior to arrival: None. 08:39 Method Of Arrival: Ambulatory em 08:39 Acuity: BLAYNE 3 aa5 Triage Assessment: 08:43 General: Appears in no apparent distress. uncomfortable, Behavior is calm, cooperative. em Pain: Complains of pain in buttocks. Historical: - Allergies: 08:43 Bactrim DS; em 08:43 Codeine; em 08:43 metoclopramide HCl; em 08:43 Stadol; em - PMHx: 08:43 Anxiety; Atrial Fib; Bipolar disorder; Chronic pain; COPD; esophageal varices; em Hepatitis; HIV; Hypertension; Migraines; Panic Attacks; - Immunization history:: Adult Immunizations up to date. - Social history:: Smoking status: Patient uses tobacco products, smokes one-half pack cigarettes per day. - Ebola Screening: : Patient negative for fever greater than or equal to 101.5 degrees Fahrenheit, and additional compatible Ebola Virus Disease symptoms Patient denies exposure to infectious person Patient denies travel to an Ebola-affected area in the 21 days before illness onset No symptoms or risks identified at this time. - Family history:: not pertinent. Screenin:46 Abuse screen: Denies threats or abuse. Nutritional screening: No deficits noted. em Tuberculosis screening: No symptoms or risk factors identified. Fall Risk None identified. Assessment: 08:45 General: Appears in no apparent distress. uncomfortable, Behavior is calm, cooperative. em Pain: Complains of pain in buttocks Pain currently is 10 out of 10 on a pain scale. Neuro: Level of Consciousness is awake, alert, obeys commands, Oriented to person, place, time, situation. Cardiovascular: Patient's skin is warm and dry. Respiratory: Airway is patent Respiratory effort is even, unlabored, Respiratory pattern is regular, symmetrical. GI: Patient currently denies nausea, vomiting. : No signs and/or symptoms were reported regarding the genitourinary system. EENT: No signs and/or symptoms were reported regarding the EENT system. Derm: Skin is intact, is healthy with good turgor, Skin is pink, warm \T\ dry. Reports. Musculoskeletal: Range of motion: intact in all extremities. 08:47 Reassessment: I agree with assessment completed by Venu Ortega LVN. External aa5 hemorrhoid noted. . 09:55 Reassessment: Patient appears in no apparent distress at this time. Patient and/or em family updated on plan of care and expected duration. Pain level reassessed. Patient is alert, oriented x 3, equal unlabored respirations, skin warm/dry/pink. Patient states feeling better. 10:38 Reassessment: Patient appears in no apparent distress at this time. Patient and/or em family updated on plan of care and expected duration. Pain level reassessed. Patient is alert, oriented x 3, equal unlabored respirations, skin warm/dry/pink. at bedside, will transport pt home. Vital Signs: 08:45 BP 137 / 82; Pulse 76; Resp 20; Temp 97.9(O); Pulse Ox 98% on R/A; Weight 90.72 kg; em Height 5 ft. 4 in. (162.56 cm); Pain 10/10; 10:36 BP 129 / 84; Pulse 81; Resp 18; Pulse Ox 99% on R/A; Pain 6/10; em 08:45 Body Mass Index 34.33 (90.72 kg, 162.56 cm) em ED Course: 08:21 Patient arrived in ED. mr 08:21 Lele Rahman DO is Private Physician. mr 08:32 OrtegaVenu LVN is Primary Nurse. em 08:33 Justus Kolb MD is Attending Physician. thomas 08:45 Arm band placed on. em 08:46 Patient has correct armband on for positive identification. Placed in gown. Bed in low em position. Call light in reach. Side rails up X2. Pulse ox on. NIBP on. 08:48 Triage completed. aa5 09:16 Lele Rahman DO is Referral Physician. thomas 09:16 Rachele Vincent MD is Referral Physician. thomas 09:58 Assist provider with I \T\ D: of an abscess on external hemorrhoid Set up I\T\D tray. em Performed by Justus Kolb MD Dressing with 4X4s, Patient tolerated well. 10:38 Patient did not have IV access during this emergency room visit. em Administered Medications: 09:17 Drug: Demerol 50 mg Route: IM; Site: right deltoid; em 09:50 Follow up: Response: No adverse reaction; Pain is decreased em 09:17 Drug: Phenergan 25 mg Route: IM; Site: right deltoid; em 09:55 Follow up: Response: No adverse reaction; Nausea is decreased em 09:17 Drug: Viscous Lidocaine Liquid (4 %) 10 ml Route: Mucous Membrane; em 09:55 Follow up: Response: No adverse reaction; Pain is decreased em 09:50 Drug: Lidocaine-Epinephrine -1%: (1:100,000) 10 ml Volume: 20 ml; Route: Infiltration; em 10:10 Drug: Cipro 500 mg Route: PO; em Outcome: 09:16 Discharge ordered by . thomas 10:38 Discharged to home ambulatory, with family. em 10:38 Condition: good 10:38 Discharge instructions given to patient, family, Instructed on discharge instructions, follow up and referral plans. no drinking with medication, no driving heavy equipment, medication usage, Demonstrated understanding of instructions, follow-up care, medications, Prescriptions given X 2. 10:39 Patient left the ED. em Signatures: Justus Kolb MD MD cha Rivera, Mary mr JordanVenu, ROOM DESIGNER ROOM DESIGNER em Lindsay Schulz, RN RN aa5
--- NOTE | 2018-06-10 09:16 | EDPHYS ---
Physician Documentation [facility] Name: Marjan Fleming Age: 63 yrs Sex: Female : 1955 Arrival Date: 06/10/2018 Time: 08:21 Bed 19 Private MD: Lele Rahman H ED Physician Justus Kolb HPI: 06/10 09:08 This 63 yrs old Female presents to ER via Ambulatory with complaints of thomas Abscess. 09:08 the patient presents with a swollen area of the gluteal cleft. Description: thomas erythematous, swollen, tense. Onset: The symptoms/episode began/occurred 3 day(s) ago. Possible cause(s): thrombosed hemorrhoid. Associated signs and symptoms: The patient has no apparent associated signs or symptoms. Modifying factors: the symptoms are alleviated by remaining still, warm soaks, sitz bath, the symptoms are aggravated by pressure, sitting, squeezing the lesion and expressing the contents. Severity of symptoms: At their worst the symptoms were moderate, in the emergency department the symptoms are unchanged. The patient has not experienced similar symptoms in the past. Historical: - Allergies: 08:43 Bactrim DS; em 08:43 Codeine; em 08:43 metoclopramide HCl; em 08:43 Stadol; em - PMHx: 08:43 Anxiety; Atrial Fib; Bipolar disorder; Chronic pain; COPD; esophageal varices; em Hepatitis; HIV; Hypertension; Migraines; Panic Attacks; - Immunization history:: Adult Immunizations up to date. - Social history:: Smoking status: Patient uses tobacco products, smokes one-half pack cigarettes per day. - Ebola Screening: : Patient negative for fever greater than or equal to 101.5 degrees Fahrenheit, and additional compatible Ebola Virus Disease symptoms Patient denies exposure to infectious person Patient denies travel to an Ebola-affected area in the 21 days before illness onset No symptoms or risks identified at this time. - Family history:: not pertinent. ROS: 09:08 Constitutional: Negative for fever, chills, and weight loss, Eyes: Negative for injury, thomas pain, redness, and discharge, ENT: Negative for injury, pain, and discharge, Neck: Negative for injury, pain, and swelling, Cardiovascular: Negative for chest pain, palpitations, and edema, Respiratory: Negative for shortness of breath, cough, wheezing, and pleuritic chest pain, Abdomen/GI: Negative for abdominal pain, nausea, vomiting, diarrhea, and constipation, Back: Negative for injury and pain, : Negative for injury, bleeding, discharge, and swelling, MS/Extremity: Negative for injury and deformity, Neuro: Negative for headache, weakness, numbness, tingling, and seizure, Psych: Negative for depression, anxiety, suicide ideation, homicidal ideation, and hallucinations, Allergy/Immunology: Negative for hives, rash, and allergies, Endocrine: Negative for neck swelling, polydipsia, polyuria, polyphagia, and marked weight changes. 09:08 Skin: Positive for thrombosed hemorrhoid. Exam: 09:08 Constitutional: This is a well developed, well nourished patient who is awake, alert, thomas and in no acute distress. Head/Face: Normocephalic, atraumatic. Eyes: Pupils equal round and reactive to light, extra-ocular motions intact. Lids and lashes normal. Conjunctiva and sclera are non-icteric and not injected. Cornea within normal limits. Periorbital areas with no swelling, redness, or edema. ENT: Nares patent. No nasal discharge, no septal abnormalities noted. Tympanic membranes are normal and external auditory canals are clear. Oropharynx with no redness, swelling, or masses, exudates, or evidence of obstruction, uvula midline. Mucous membranes moist. Neck: Trachea midline, no thyromegaly or masses palpated, and no cervical lymphadenopathy. Supple, full range of motion without nuchal rigidity, or vertebral point tenderness. No Meningismus. Chest/axilla: Normal chest wall appearance and motion. Nontender with no deformity. No lesions are appreciated. Cardiovascular: Regular rate and rhythm with a normal S1 and S2. No gallops, murmurs, or rubs. Normal PMI, no JVD. No pulse deficits. Respiratory: Lungs have equal breath sounds bilaterally, clear to auscultation and percussion. No rales, rhonchi or wheezes noted. No increased work of breathing, no retractions or nasal flaring. Back: No spinal tenderness. No costovertebral tenderness. Full range of motion. Female : Normal external genitalia. MS/ Extremity: Pulses equal, no cyanosis. Neurovascular intact. Full, normal range of motion. Neuro: Awake and alert, GCS 15, oriented to person, place, time, and situation. Cranial nerves II-XII grossly intact. Motor strength 5/5 in all extremities. Sensory grossly intact. Cerebellar exam normal. Normal gait. Psych: Awake, alert, with orientation to person, place and time. Behavior, mood, and affect are within normal limits. 09:08 Abdomen/GI: Inspection: abdomen appears normal, Bowel sounds: normal, Palpation: abdomen is soft and non-tender, Rectal exam: hemorrhoid(s), external, with pain, with thrombosis, Liver: no appreciated palpable abnormalities, Hernia: not appreciated. Vital Signs: 08:45 BP 137 / 82; Pulse 76; Resp 20; Temp 97.9(O); Pulse Ox 98% on R/A; Weight 90.72 kg; em Height 5 ft. 4 in. (162.56 cm); Pain 10/10; 10:36 BP 129 / 84; Pulse 81; Resp 18; Pulse Ox 99% on R/A; Pain 6/10; em 08:45 Body Mass Index 34.33 (90.72 kg, 162.56 cm) em Procedures: 09:11 I \T\ D: Incision and drainage was performed for an abscess of the external hemorrhoid thomas Prepped with Betadine, Anesthetized with 10 ml's 1% Lidocaine w/ Epi. Incised with #11 blade. Drained moderate amount Dressing: sterile 4x4 gauze, the patient tolerated the procedure well. MDM: 08:33 Patient medically screened. [facility] 09:10 Data reviewed: vital signs, nurses notes. [facility] 06/10 09:08 Order name: Dressing - Wound; Complete Time: 10:25 [facility] 06/10 09:08 Order name: Gloves, Sterile; Complete Time: 09:18 [facility] 06/10 09:08 Order name: Setup Suture Tray; Complete Time: 09:18 [facility] Administered Medications: 09:17 Drug: Demerol 50 mg Route: IM; Site: right deltoid; em 09:50 Follow up: Response: No adverse reaction; Pain is decreased em 09:17 Drug: Phenergan 25 mg Route: IM; Site: right deltoid; em 09:55 Follow up: Response: No adverse reaction; Nausea is decreased em 09:17 Drug: Viscous Lidocaine Liquid (4 %) 10 ml Route: Mucous Membrane; em 09:55 Follow up: Response: No adverse reaction; Pain is decreased em 09:50 Drug: Lidocaine-Epinephrine -1%: (1:100,000) 10 ml Volume: 20 ml; Route: Infiltration; em 10:10 Drug: Cipro 500 mg Route: PO; em Disposition: 06/10/18 09:16 Discharged to Home. Impression: Gastrointestinal hemorrhage, unspecified - external thromosed hemorrhoid, excised. - Condition is Stable. - Discharge Instructions: Hemorrhoids, Rectal Bleeding, How to Take a Sitz Bath, Hemorrhoids, [id number]. - Prescriptions for Cipro 500 mg Oral Tablet - take 1 tablet by ORAL route every 12 hours for 7 days; 14 tablet. Tramadol 50 mg Oral Tablet - take 1 tablet by ORAL route every 8 hours as needed; 24 tablet. - Medication Reconciliation Form, Thank You Letter, Antibiotic Education, Prescription Opioid Use form. - Follow up: Lele Rahman; When: 2 - 3 days; Reason: Recheck today's complaints, Continuance of care, Re-evaluation by your physician. Follow up: Rachele Vincent; When: 2 - 3 days; Reason: Recheck today's complaints, Continuance of care, Re-evaluation by your physician. - Problem is new. - Symptoms have improved. Signatures: Justus Kolb MD MD cha Munoz, Edgar, FISHING LINE WINDING MACHINE OPERATOR FISHING LINE WINDING MACHINE OPERATOR em Corrections: (The following items were deleted from the chart) 10:39 09:16 06/10/2018 09:16 Discharged to Home. Impression: Gastrointestinal hemorrhage, em unspecified - external thromosed hemorrhoid, excised. Condition is Stable. Discharge Instructions: Hemorrhoids, Rectal Bleeding, How to Take a Sitz Bath, Hemorrhoids, [id number]. Prescriptions for Cipro 500 mg Oral Tablet - take 1 tablet by ORAL route every 12 hours for 7 days; 14 tablet, Tramadol 50 mg Oral Tablet - take 1 tablet by ORAL route every 8 hours as needed; 24 tablet. and Forms are Medication Reconciliation Form, Thank You Letter, Antibiotic Education, Prescription Opioid Use. Follow up: Lele Rahman; When: 2 - 3 days; Reason: Recheck today's complaints, Continuance of care, Re-evaluation by your physician. Follow up: Rachele Vincent; When: 2 - 3 days; Reason: Recheck today's complaints, Continuance of care, Re-evaluation by your physician. Problem is new. Symptoms have improved. thomas
[2018-06-10] MEDS ORDERED: CIPROFLOXACIN HCL 500 MG TAB ONE (09:19)
[2018-06-10] MEDS ORDERED: MEPERIDINE HCL 50 MG/ML AMP ONE (09:19)
[2018-06-10] MEDS ORDERED: PROMETHAZINE HCL 50 MG/ML AMP IM ONE (09:20)
[2018-06-10] MEDS ORDERED: LIDOCAINE VISCOUS 2% SOLN 15 ML UDC ONE (09:20)
[2018-06-10 10:52] VITALS: TEMP 97.9
[2018-06-10 10:53] VITALS: BP 129/84; O2SAT 99
== END 2018-06-10 10:39 | disposition home or self-care (01) ==
LOC: ER 08:17
PROC: 0D9QXZZ Drainage of Anus, External Approach (ICD-10-PCS; principal; 2018-06-10)
DX: K92.2 Gastrointestinal hemorrhage, unspecified (principal); K64.4 Residual hemorrhoidal skin tags
CPT/HCPCS: 46083; J2175; J2550

== ENCOUNTER 2018-06-17 09:38 | Observation (INO) | payer OTHER ==
--- OUTSIDE RECORDS SUMMARY | 2018-06-17 09:40 | XMS REPORT | Clinical Summary ---
:1955 Author Organization [facility] Address [address] [place] [address] Care Team Providers Name Role Phone Asked, [...] INFLUENZA VACCINE 12/21/2017 Implants Implanted Type Area Pool Manager Device Shelf Model / Identifier Expiration Serial / Date Lot Versa-Dial/Comp Ti Std Taper Used W/25mm Glenoid Basplate - [id number] N/ A: N/A [employer] 01/22/2026 [id number] / Implanted: Qty: 1 on 10/19/2016 by Austin Bowles MD IMPLANT / DEVICES [id number] 41mm Comprehensive Reverse Shoulder Glenosphere Ba - [id number] IPM N/A: N/A [employer] 11/21/2023 [id number] / Implanted: Qty: 1 on 10/19/2016 by Austin Bowles MD IMPLANT / DEVICES [id number] Arcom Xl 44-41 Std +3 Humeral Brg - [id number] IPM Left: [employer] 07/20 XL [id number] / Implanted: Qty: 1 on 10/19/2016 by Austin Bowles MD IMPLANT Shoulder / DEVICES [id number] Humeral Tray With Locking Ring +5 Left: [employer] 03/31/2026 [id number] / Implanted: Qty: 1 on 10/19/2016 by Austin Bowles MD Shoulder / [id number] Results Not on fileafter 06/16/2017 Insurance Payer Benefit Plan / Group Subscriber ID Type Phone Address [facility] MEDICARE [facility] DUAL COMPLETE MCR xxxxxxxxx O [facility] MEDICAID [facility] BRIA xxxxxxxxx O Advance Directives Patient has advance care planning documents on file. For more information, please contact:Derrick [id number] [place] [place] [address]
[2018-06-17 10:31] LABS: Absolute Lymphocytes (CBC) 1.3 K/uL (0.7-4.9); Absolute Monocytes 0.5 K/uL (0.1-1.3); Absolute Neutrophil 3.5 K/uL (1.8-8.0); Basophils % 0.7 % (0-1.3); Eosinophils % 1.7 % (0-4.4); Lymphocytes % 24.4 % (15.3-44.8); MPV 8.7 fL (7.6-11.3); Monocytes % 8.7 % (3.3-12.3)
--- NOTE | 2018-06-17 10:43 | RAD REPORT ---
EXAM DESCRIPTION: CT - Head Brain Wo Cont - 06/17/2018 10:23 am CLINICAL HISTORY: Left arm numbness, left facial numbness COMPARISON: CT head May 2015 TECHNIQUE: Axial 5 mm thick images of the head were obtained without IV contrast. All CT scans are performed using dose optimization technique as appropriate and may include automated exposure control or mA/KV adjustment according to patient size. FINDINGS: No intracranial hemorrhage, mass, edema or shift of mid-line structures. No acute cortical based infarction identified. No cortical edema or sulcal effacement. Atrophy changes are minimal. Les thompson has chronic ischemic changes throughout the cerebral white matter. These are not substantially different from comparison. Arterial and physiologic calcifications are present. Ventricles are normal . Mastoid air cells and visualized portions of the paranasal sinuses are clear. No acute bony findings. IMPRESSION: No hemorrhage, mass or edema. Intracranial findings are not clearly different from 2016. No acute cortical infarction identified. Patient has chronic ischemic change that could potentially m ask nonhemorrhagic CVA.
[2018-06-17 10:47] LABS: BUN Blood Urea Nitrogen 27 mg/dL (7-18); Bicarbonate 28 mmol/L (21-32); Glucose Level 115 mg/dL (74-106); Potassium 4.1 mmol/L (3.5-5.1); Sodium Level 139 mmol/L (136-145); Troponin (Emerg Dept Use Only) < 0.02 ng/mL (0.0-0.045)
[2018-06-17 11:13] LABS: Anisocytosis 1+; Blood Morphology Comment NOTED (NOT SEEN); Hypochromasia 1+; Platelet Estimate ADEQ
--- NOTE | 2018-06-17 11:22 | EDPHYS ---
Physician Documentation [facility] Name: Marjan Fleming Age: 63 yrs Sex: Female : 1955 Arrival Date: 06/17/2018 Time: 09:39 Bed 19 Private MD: ED Physician Ramon Baker HPI: 06/17 10:15 This 63 yrs old Female presents to ER via Ambulatory with complaints of rn Numbness Of Face, Numbness Of Arm. 10:15 The patient's problem is reported as paresthesias, in left upper extremity, in left rn side of face. Onset: The symptoms/episode began/occurred 2 day(s) ago. Duration: The episodes are intermittent. The symptoms are alleviated by nothing. The symptoms are aggravated by nothing. Severity of symptoms: At their worst the symptoms were mild in the emergency department the symptoms have improved. The patient has not experienced similar symptoms in the past. Reports 2-3 days of left facial numbness, intermittent, and now this morning around 0430 began with LUE numbness, no weakness, no speech problem, no hx of stroke. . Historical: - Allergies: 09:46 Bactrim DS; sg 09:46 Codeine; sg 09:46 metoclopramide HCl; sg 09:46 Stadol; sg - PMHx: 09:46 Anxiety; Atrial Fib; Bipolar disorder; Chronic pain; COPD; esophageal varices; sg Hepatitis; HIV; Hypertension; Migraines; Panic Attacks; - Immunization history:: Adult Immunizations up to date. - Social history:: Smoking status: Patient uses tobacco products, smokes one-half pack cigarettes per day. - Ebola Screening: : Patient negative for fever greater than or equal to 101.5 degrees Fahrenheit, and additional compatible Ebola Virus Disease symptoms Patient denies exposure to infectious person Patient denies travel to an Ebola-affected area in the 21 days before illness onset No symptoms or risks identified at this time. - Family history:: not pertinent. - Hospitalizations: : No recent hospitalization is reported. ROS: 10:15 Constitutional: Negative for fever, chills, and weight loss, Eyes: Negative for injury, rn pain, redness, and discharge, Cardiovascular: Negative for chest pain, palpitations, and edema, Respiratory: Negative for shortness of breath, cough, wheezing, and pleuritic chest pain, Abdomen/GI: Negative for abdominal pain, nausea, vomiting, diarrhea, and constipation, MS/Extremity: Negative for injury and deformity, Skin: Negative for injury, rash, and discoloration, Neuro: Negative for weakness, and seizure. Exam: 10:15 Constitutional: This is a well developed, well nourished patient who is awake, alert, rn and in no acute distress. Head/Face: Normocephalic, atraumatic. Cardiovascular: Regular rate and rhythm with a normal S1 and S2. No gallops, murmurs, or rubs. Normal PMI, no JVD. No pulse deficits. Respiratory: Lungs have equal breath sounds bilaterally, clear to auscultation and percussion. No rales, rhonchi or wheezes noted. No increased work of breathing, no retractions or nasal flaring. Abdomen/GI: Soft, non-tender, No evidence of tenderness throughout. Skin: Warm, dry with normal turgor. Normal color with no rashes, no lesions, and no evidence of cellulitis. MS/ Extremity: Pulses equal, no cyanosis. Neurovascular intact. Full, normal range of motion. Equal circumference. Neuro: Awake and alert, GCS 15, oriented to person, place, time, and situation. Motor strength 5/5 in all extremities. Sensory grossly intact. Cerebellar exam normal. Normal gait. + left facial numbness. Vital Signs: 09:45 BP 131 / 91; Pulse 63; Resp 17; Pulse Ox 100% on R/A; Weight 91.17 kg; Height 5 ft. 4 sg in. (162.56 cm); Pain 2/10; 10:58 BP 124 / 82; Pulse 62; Resp 17; Pulse Ox 99% on R/A; Pain 4/10; em 11:32 BP 118 / 63; Pulse 65; Resp 18; Pulse Ox 99% on R/A; em 12:32 BP 123 / 71; Pulse 64; Resp 16; Pulse Ox 99% on R/A; Pain 9/10; em 09:45 Body Mass Index 34.50 (91.17 kg, 162.56 cm) MDM: 09:52 Patient medically screened. rn 11:18 Differential diagnosis: CVA, TIA, metabolic disorder. Data reviewed: vital signs, rn nurses notes, lab test result(s), EKG, radiologic studies, CT scan, and as a result, I will admit patient. Counseling: I had a detailed discussion with the patient and/or guardian regarding: the historical points, exam findings, and any diagnostic results supporting the discharge/admit diagnosis, lab results, radiology results, the need for further work-up and treatment in the hospital. Admission orders: after a detailed discussion of the patient's condition and case, the admit orders are written by me. ED course: Patient with improvement of symptoms, symptoms present for 2 days, will admit for TIA w/u. . 06/17 09:59 Order name: Basic Metabolic Panel; Complete Time: 10:49 rn 06/17 09:59 Order name: CBC with Diff; Complete Time: 11:14 rn 06/17 09:59 Order name: Troponin (emerg Dept Use Only); Complete Time: 10:49 06/17 11:13 Order name: Manual Differential; Complete Time: 11:14 [facility] 06/17 11:40 Order name: CBC with Automated Diff [facility] 06/17 11:40 Order name: CBC with Automated Diff [facility] 06/17 09:59 Order name: CT Head Brain wo Cont; Complete Time: 10:49 06/17 11:40 Order name: Echo with Doppler [facility] 06/17 11:40 Order name: Comprehensive Metabolic Panel [facility] 06/17 11:40 Order name: Comprehensive Metabolic Panel [facility] 06/17 11:40 Order name: Lipid Profile [facility] 06/17 11:40 Order name: Lipid Profile [facility] 06/17 11:42 Order name: Stroke Protocol [facility] 06/17 11:42 Order name: Carotid Artery Bilateral [facility] 06/17 09:59 Order name: EKG; Complete Time: 09:59 06/17 09:59 Order name: Cardiac monitoring; Complete Time: 10:40 06/17 09:59 Order name: EKG - Nurse/Tech; Complete Time: 10:22 06/17 09:59 Order name: IV Saline Lock; Complete Time: 10:41 06/17 09:59 Order name: Labs collected and sent; Complete Time: 10:40 06/17 09:59 Order name: NPO; Complete Time: 10:40 06/17 09:59 Order name: O2 Per Protocol; Complete Time: 10:40 06/17 09:59 Order name: O2 Sat Monitoring; Complete Time: 10:40 06/17 11:40 Order name: Physical Therapy Consult [facility] 06/17 11:40 Order name: Social Service Consult [facility] 06/17 11:40 Order name: NPO [facility] 06/17 11:40 Order name: NPO [facility] 06/17 11:40 Order name: NPO [facility] 06/17 11:42 Order name: Speech Therapy Consult [facility] Administered Medications: 11:45 Drug: Aspirin 325 mg Route: PO; em 12:34 Follow up: Response: No adverse reaction em Disposition: 06/17/18 11:22 Hospitalization ordered by Keren Zamora for Observation. Preliminary diagnosis are Paresthesia of skin, Headache. - Bed requested for Telemetry/MedSurg (observation). - Status is Observation. em - Condition is Stable. - Problem is new. - Symptoms have improved. UTI on Admission? No Signatures: Dispatcher [employer] EDWV Samson Recinos RN RN sg Venu Ortega, DELI COOK DELI COOK em Ramon Baker MD MD rn Fitzgerald, Diane, RN RN df Corrections: (The following items were deleted from the chart) 11:45 11:22 Hospitalization Ordered by Keren Zamora MD for Observation. Preliminary diagnosis df is Paresthesia of skin; Headache. Bed requested for Telemetry/MedSurg (observation). Status is Observation. Condition is Stable. Problem is new. Symptoms have improved. UTI on Admission? No. rn 12:42 11:45 06/17/2018 11:22 Hospitalization Ordered by Keren Zamora MD for Observation. em Preliminary diagnosis is Paresthesia of skin; Headache. Bed requested for Telemetry/MedSurg (observation). Status is Observation. Condition is Stable. Problem is new. Symptoms have improved. UTI on Admission? No. df
--- NOTE | 2018-06-17 11:22 | ER ---
Nurse's Notes [facility] Name: Marjan Fleming Age: 63 yrs Sex: Female : 1955 Arrival Date: 06/17/2018 Time: 09:39 Bed 19 Private MD: Diagnosis: Paresthesia of skin;Headache Presentation: 06/17 09:44 Presenting complaint: Patient states: Left sided numbness to the face and left arm and sg left hand that started two days ago, did not happen yesterday but then happened again this morning around 0430 while making my husbands lunch, pt reports numbness and tingling to left side of face and lips. Transition of care: patient was not received from another setting of care. Onset of symptoms was June 17, 2018. Risk Assessment: Do you want to hurt yourself or someone else? Patient reports no desire to harm self or others. Initial Sepsis Screen: Does the patient meet any 2 criteria? No. Patient's initial sepsis screen is negative. Does the patient have a suspected source of infection? No. Patient's initial sepsis screen is negative. Care prior to arrival: None. 09:44 Method Of Arrival: Ambulatory sg 09:44 Acuity: BLAYNE 3 sg Historical: - Allergies: 09:46 Bactrim DS; sg 09:46 Codeine; sg 09:46 metoclopramide HCl; sg 09:46 Stadol; sg - PMHx: 09:46 Anxiety; Atrial Fib; Bipolar disorder; Chronic pain; COPD; esophageal varices; sg Hepatitis; HIV; Hypertension; Migraines; Panic Attacks; - Immunization history:: Adult Immunizations up to date. - Social history:: Smoking status: Patient uses tobacco products, smokes one-half pack cigarettes per day. - Ebola Screening: : Patient negative for fever greater than or equal to 101.5 degrees Fahrenheit, and additional compatible Ebola Virus Disease symptoms Patient denies exposure to infectious person Patient denies travel to an Ebola-affected area in the 21 days before illness onset No symptoms or risks identified at this time. - Family history:: not pertinent. - Hospitalizations: : No recent hospitalization is reported. Screenin:04 Abuse screen: Denies threats or abuse. Nutritional screening: No deficits noted. em Tuberculosis screening: No symptoms or risk factors identified. Fall Risk None identified. Assessment: 10:04 General: Appears in no apparent distress. comfortable, Behavior is calm, cooperative. em Pain: Complains of pain in forehead and occipital area Pain currently is 2 out of 10 on a pain scale. Pain began 2-3 days ago. Neuro: Level of Consciousness is awake, alert, obeys commands, Oriented to person, place, time, situation, Circulation Man are equal bilaterally Moves all extremities. Gait is steady, Speech is normal, paresthesias in mouth, left jaw and left arm Reports dizziness, Denies weakness. Cardiovascular: Capillary refill < 3 seconds Patient's skin is warm and dry. Respiratory: Airway is patent Respiratory effort is even, unlabored, Respiratory pattern is regular, symmetrical. GI: Reports nausea, vomiting. : No signs and/or symptoms were reported regarding the genitourinary system. EENT: No signs and/or symptoms were reported regarding the EENT system. Derm: Skin is intact, is healthy with good turgor, Skin is pink, warm \T\ dry. Musculoskeletal: Range of motion: intact in all extremities. 10:15 Reassessment: I agree with previous assessment. hb 11:30 Reassessment: Patient appears in no apparent distress at this time. Patient and/or em family updated on plan of care and expected duration. Pain level reassessed. Patient is alert, oriented x 3, equal unlabored respirations, skin warm/dry/pink. Dr Zamora at bedside. 12:30 Reassessment: Patient appears in no apparent distress at this time. Patient and/or em family updated on plan of care and expected duration. Pain level reassessed. Patient is alert, oriented x 3, equal unlabored respirations, skin warm/dry/pink. reports headache, rates headache 01/30, provider notified, no new orders received. Vital Signs: 09:45 BP 131 / 91; Pulse 63; Resp 17; Pulse Ox 100% on R/A; Weight 91.17 kg; Height 5 ft. 4 sg in. (162.56 cm); Pain 2/10; 10:58 BP 124 / 82; Pulse 62; Resp 17; Pulse Ox 99% on R/A; Pain 4/10; em 11:32 BP 118 / 63; Pulse 65; Resp 18; Pulse Ox 99% on R/A; em 12:32 BP 123 / 71; Pulse 64; Resp 16; Pulse Ox 99% on R/A; Pain 9/10; em 09:45 Body Mass Index 34.50 (91.17 kg, 162.56 cm) ED Course: 09:39 Patient arrived in ED. as 09:45 Triage completed. sg 09:46 Arm band placed on. sg 09:52 Ramon Baker MD is Attending Physician. rn 10:00 Venu Ortega LVN is Primary Nurse. em 10:04 Patient has correct armband on for positive identification. Placed in gown. Bed in low em position. Call light in reach. nuclear monitoring technician on. Pulse ox on. NIBP on. 10:15 Missed attempt(s): 24 gauge in left forearm. Bleeding controlled, band aid applied, em catheter tip intact. 10:21 EKG done, by ED staff, reviewed by Ramon Baker MD. 3 10:22 CT completed. Patient moved to CT via stretcher. Patient moved back from CT. bq 10:23 CT Head Brain wo Cont In Process Unspecified. EDMS 10:42 Inserted saline lock: 24 gauge in right hand, using aseptic technique. 3 11:22 Keren Zamora MD is Hospitalizing Provider. rn 12:24 No provider procedures requiring assistance completed. Patient admitted, IV remains in em place. Administered Medications: 11:45 Drug: Aspirin 325 mg Route: PO; em 12:34 Follow up: Response: No adverse reaction em Outcome: 11:22 Decision to Hospitalize by Provider. rn 12:29 Admitted to Tele accompanied by tech, via wheelchair, room 204, with chart, Report em called to ASHLEY Jorgensen 12:29 Condition: good 12:29 Instructed on the need for admit, Demonstrated understanding of instructions. 12:42 Patient left the ED. em Signatures: Dispatcher [employer] EDMS Samson Recinos, RN Esthela Dahl bq Venu Ortega, MATTI DISPLAY MECHANIC em Radha Simons Roman, MD MD rn Baxter, Heather, RN RN hb Herrera, Deanna [facility]
[2018-06-17] MEDS ORDERED: ALBUTEROL 2.5 MG/3 ML NEB SOL NEB PRN (11:36)
[2018-06-17] MEDS ORDERED: ACETAMINOPHEN 500 MG TAB PO PRN (11:36)
[2018-06-17] MEDS ORDERED: ONDANSETRON 4 MG/2 ML VIAL IV PRN (11:36)
--- NOTE | 2018-06-17 11:36 | EKG ---
Test Date: 2018-06-17 Test Time: 10:15:17 Parenting Skills Instructor: GRAY MEASUREMENT RESULTS: Intervals: Rate: 64 IL: 130 QRSD: 82 QT: 438 QTc: 451 Ralph: P: -3 IL: 130 QRS: 11 T: 22 INTERPRETIVE STATEMENTS: Normal sinus rhythm Moderate voltage criteria for LVH, may be normal variant Borderline ECG Compared to ECG 04/18/2018 20:49:38 Left ventricular hypertrophy now present Atrial premature complex(es) no longer present Electronically Signed On 06-17-18 11:35:36 BOOTH CLEANER by Per Crane
[2018-06-17] MEDS ORDERED: ASPIRIN 81 MG CHEWABLE TABLET ONE (11:54)
[2018-06-17] MEDS: ASPIRIN EC 81 MG TAB PO SCH (12:10)
[2018-06-17] MEDS ORDERED: HYDROCODONE/APAP 7.5/325 MG TAB PO PRN (12:20)
[2018-06-17] MEDS: NA CHLORIDE 0.9% 1,000 ML IV SCH ×2 (12:47→23:52)
[2018-06-17 12:56] VITALS: BMI 34.4
[2018-06-17] MEDS ORDERED: KETOROLAC 30 MG/ML INJ IV ONE (13:13)
[2018-06-17] MEDS ORDERED: IPRATROPIUM BROM 0.5MG/2.5ML IH PRN (13:50)
--- NOTE | 2018-06-17 15:10 | PN ---
Consultants: None. Chief Complaint: Numbness on the left side of her face. History Of Present Illness: The patient is a 63-year-old female with past medical history of uncontrolled hypertension, HIV, COPD, comes in with 2 days of intermittent numbness and tingling of her face and her left arm. The patient denies any specific weakness in her left arm. No facial asymmetry. The patient's symptoms began when she woke up 2 days ago and have been intermittent since symptoms are progressive and moderate. The patient denies any falls. Does report some headache towards the back of her head. Otherwise, no visual changes. The patient came into the ER for further evaluation. Her workup including head CT scan was negative. Her symptoms have improved slightly , however, not completely resolved. The patient was then referred for admission. When seen in the ER, she was awake, alert, oriented x3. Some mild distress. Past Medical History: COPD, HIV, hypertension, GERD, depression, anxiety. Past Surgical History: Cholecystectomy, appendectomy, shoulder surgery x2 with replacement. Social History: The patient smokes 5 cigarettes per day. Has been smoking for several years. No alcohol use or illicit drug use. The patient is , independent in her activities of daily living. Family History: The patient denies any significant family history of stroke. Allergies: TO FENTANYL, BUTORPHANOL, METOCLOPRAMIDE, BACTRIM. Medications: List reviewed. Review of Systems: An 11-point system reviewed, negative except as per HPI. Physical Examination: Vital Signs: Blood pressure 131/91, pulse 63, respirations 17, O2 100% on room air. BMI is 34. General: Awake, alert, oriented x3. Appears older than stated age, ill appearing female. CV: S1 and S2. Regular rate and rhythm. Peripheral pulses present. HEENT: Normocephalic, atraumatic. PERRLA. EOMI. Moist mucous membranes. Oropharynx is clear. Conjunctivae anicteric. Neck: Supple. No JVD. Trachea midline. Respiratory: Clear to auscultation bilaterally. No wheezing or stridor. No use of accessory muscles. Gastrointestinal: Abdomen is soft, nontender, nondistended. Positive bowel sounds. Extremities: No clubbing, cyanosis, or edema. No calf tenderness. Neuro: Cranial nerves 2-12 intact grossly. No focal neurological deficits. Strength is 5/5 bilateral upper and lower extremities. Sensation is decreased to light touch in the left face and left arm as sleepy hand. Psych: Mood is anxious. Affect is congruent with mood. Insight and judgment are fair. Laboratory Data: Sodium 139, potassium 4.1, chloride 104, CO2 28, BUN 27, creatinine 0.81, glucose 115, calcium 8.8. Troponin less than 0.02. WBC 5.5, H and H 10.5 and 35, platelets 266, neutrophils 64%. CT scan of the head shows no hemorrhage, mass, or edema. Intracranial findings not clearly different from 2016. No acute cortical infarction identified. EKG shows normal sinus rhythm, rate of 64, moderate voltage criteria for LVH. Assessment And Plan: A 63-year-old female with 1. TIA, rule out acute cerebrovascular accident. The patient still has some numbness and tingling. Onset of symptoms was 2 days ago. We will start on stroke guidelines with aspirin, statin. Obtain echocardiogram, MRI of the brain and echocardiogram. Neurology currently unavailable. 2. Obesity. 3. Essential hypertension. We will allow permissive hypertension due to acute symptoms. 4. HIV, on antiretrovirals. 5. Gastroesophageal reflux disease without esophagitis. Continue PPI. 6. Depression and anxiety. The patient is on Ativan. 7. Headache. We will provide analgesia. 8. COPD, not oxygen dependent. GI and DVT prophylaxis with PPI and Lovenox. Plan: Admit the patient to Med-Surg, place as observation. /KIRTI Voice ID: [id number] Report ID: [id number] ZULEIKA
[2018-06-17] MEDS: LORAZEPAM 1 MG TABLET PO PRN (16:13)
[2018-06-17] MEDS ORDERED: ENOXAPARIN 40 MG/0.4 ML SQ SCH (17:00)
--- NOTE | 2018-06-17 20:09 | RAD REPORT ---
EXAM DESCRIPTION: US - CP - 06/17/2018 7:41 pm CLINICAL HISTORY: CVA COMPARISON: None. TECHNIQUE: Real-time sonographic evaluation of both carotid systems was performed. Mendoza scale and Do ppler interrogation were performed with waveform tracing bilaterally. FINDINGS: Normal high resistance waveforms are noted in both external carotid arteries. The common c arotid arteries and internal carotid arteries show normal low resistance waveforms. No significant plaque formation is seen. Peak systolic and end diastolic velocity values and the ICA/ CCA ratios are in the non-hemodynamically significant range. Antegrade flow seen in both vertebral arteries. Velocity values and ratios were recorded and are retained in the patient's imaging records. IMPRESSION: No significant atherosclerotic changes noted. No evidence of a hemodynamically significant stenosis.
[2018-06-17] MEDS ORDERED: HOME MED 1 EA UNK (Budesonide/Formoterol Fumarate [Symbicort 160-4.5 Mcg Inhaler] 2 PUFF) IH SCH (21:00)
[2018-06-17] MEDS: ATORVASTATIN 40 MG TAB PO SCH ×2 (21:00→21:03)
[2018-06-17] MEDS ORDERED: DESCOVY PO SCH (21:00)
[2018-06-17] MEDS: ISENTRESS 400 MG PO SCH (21:04)
[2018-06-18] MEDS: LORAZEPAM 1 MG TABLET PO PRN (05:37)
[2018-06-18 06:23] LABS: Albumin 3.3 g/dL (3.4-5.0); Bilirubin Total 0.2 mg/dL (0.2-1.0); Ferritin 8.7 ng/mL (8-388); Magnesium 2.1 mg/dL (1.8-2.4)
[2018-06-18] MEDS ORDERED: PANTOPRAZOLE 40MG TABLET PO SCH (06:30)
[2018-06-18 08:05] LABS: Absolute Lymphocytes (CBC) 0.9 K/uL (0.7-4.9); Absolute Monocytes 0.4 K/uL (0.1-1.3); Absolute Neutrophil 2.4 K/uL (1.8-8.0); Basophils % 0.5 % (0-1.3); Eosinophils % 1.7 % (0-4.4); Lymphocytes % 23.1 % (15.3-44.8); MPV 8.5 fL (7.6-11.3); Monocytes % 10.5 % (3.3-12.3); RBC Red Blood Cell Count 4.82 M/uL (3.86-4.86)
[2018-06-18 08:37] VITALS: O2SAT 99
[2018-06-18 08:50] VITALS: BP 145/86; TEMP 97.4
[2018-06-18] MEDS: ISENTRESS 400 MG PO SCH (09:00)
[2018-06-18] MEDS ORDERED: predniSONE 20 MG TAB PO SCH (09:00)
[2018-06-18] MEDS ORDERED: TIOTROPIUM 5 SPRAYS/INHALER IH SCH (09:00)
[2018-06-18] MEDS ORDERED: SERTRALINE HCL 100 MG TAB PO SCH (09:00)
[2018-06-18] MEDS: ASPIRIN EC 81 MG TAB PO SCH (09:25)
--- NOTE | 2018-06-19 04:17 | DS ---
Date of Discharge: 06/18/2018 Consultants: None. Discharge Diagnoses: 1.Transient ischemic attack, symptoms resolved. 2.Obesity, body mass index 34.5. 3.Essential hypertension. 4.Human immunodeficiency virus, on antiretrovirals. 5.Microcytic hypochromic anemia. 6.Gastroesophageal reflux disease without esophagitis. 7.Depression and anxiety. 8.Headache, resolved. 9.Chronic obstructive pulmonary disease, non-oxygen dependent. Hospital Course: The patient is a 63-year-old female, who comes in with a 2-day history of intermitt ent numbness and tingling on the left side of her face. The patient is clearly outside the tPA windo w. The patient was evaluated for TIA, rule out CVA. CT scan of the head was done, which did not gricelda w any acute hemorrhage or infarct. The patient was admitted and started on stroke guidelines. Her c arotid ultrasound did not show any significant stenosis. MRI of the brain was unable to be done due to the weekend; however, patient's symptoms resolved. The patient does follow with neurologist, Dr. Lehman, and will need to follow up as an outpatient for further workup including MRI and MRA of the brain and MRI and MRA of the neck. The patient's lipid panel did show elevated triglycerides. She was started on statin and aspirin. The patient was counseled regarding her dietary habits. The patient otherwise did well. She did complain of some headache, which was likely musculoskeletal pain from the muscles that attach to the back of the head. She improved with Toradol. The patient w as able to ambulate well, did not have any difficulty. Her swallowing function was normal. No episo monika of choking. Bedside swallow evaluation was normal. The patient was found to be anemic on lab wo rkup, likely related to iron deficiency anemia, in her age group likely causes may be malignancy. Sh elver denies any blood in her stool. She was recommended to have cancer screening including colonoscopy, mammogram, Pap smear, and other screenings according to her age group. The patient will be suppleme nted with iron. Overall, the patient did well over the course of the hospital stay. The patient was then cleared for discharge, and sent home in a stable condition. Activity: As tolerated. Medications: As per medication reconciliation list. Followup: Follow up with primary care physician. Follow up with Neurology, Dr. Lehman, in 1 week. Establish care with GI in 2 to 4 weeks. Cancer screenings including, but not limited to mammogram, colonoscopy and Pap smear. Return to ER for worsening condition. Diet: Heart healthy. Activity: No driving or operating heavy machinery while on benzodiazepines. Physical Examination: General: Awake, alert, and oriented x3. No acute distress. Elderly female. CV: S1, S2. No murmurs. Respiratory: Moving air well bilaterally. Abdomen: Soft, nontender, nondistended. Positive bowel sounds. Extremities: No clubbing, cyanosis, or edema. Neuro: Nonfocal. Sensation intact to light touch. No numbness or tingling. SA/MODL Voice ID: [id number] Report ID: [id number]
== END 2018-06-18 12:46 | disposition home or self-care (01) ==
LOC: ER 09:38 → ERHOLD 11:35 → 2ND 12:29
PROVIDERS: ADMIT Family Medicine; ATTEND Family Medicine
DX: G45.9 Transient cerebral ischemic attack, unspecified (principal); E66.9 Obesity, unspecified; Z68.34 Body mass index [BMI] 34.0-34.9, adult; I10 Essential (primary) hypertension; Z21 Asymptomatic human immunodeficiency virus [HIV] infection status; D50.9 Iron deficiency anemia, unspecified; K21.9 Gastro-esophageal reflux disease without esophagitis; F41.8 Other specified anxiety disorders; R51 Headache; J44.9 Chronic obstructive pulmonary disease, unspecified; F17.210 Nicotine dependence, cigarettes, uncomplicated
CPT/HCPCS: 36415; 70450; 80048; 80053; 80061; 82728; 83540; 83735; 84466; 84484; 85025 ×2; 93005; 93880; 94760 ×2; 97163; 99285; G0378 ×2; J1650; J7030 ×2; J7512

== ENCOUNTER 2018-07-05 08:41 | Emergency (ER) | payer OTHER ==
--- OUTSIDE RECORDS SUMMARY | 2018-07-05 08:44 | XMS REPORT ---
:1955 [facility] Address [address] [place] [address] Dr. Obrien[address] [place] [id number] Care Team Providers Name Role Phone Unavailable Unavailable Unavailable Problems This patient has no known problems. Allergies, Adverse Reactions, Alerts This patient has no known allergies or adverse reactions. Medications This patient has no known medications.
--- OUTSIDE RECORDS SUMMARY | 2018-07-05 08:44 | XMS REPORT | Clinical Summary ---
:1955 Author Organization [facility] Address [address] [place] [address] Care Team Providers Name Role Phone Asked, [...] INFLUENZA VACCINE 12/21/2017 Implants Implanted Type Area Manager Medical Device Shelf Model / Identifier Expiration Serial / Date Lot Versa-Dial/Comp Ti Std Taper Used W/25mm Glenoid Basplate - [id number] N/ A: N/A [employer] 01/22/2026 [id number] / Implanted: Qty: 1 on 10/19/2016 by Austin Bowles MD IMPLANT / DEVICES [id number] 41mm Comprehensive Reverse Shoulder Glenosphere Ba - [id number] N/A: N/A [employer] 11/21/2023 [id number] / Implanted: Qty: 1 on 10/19/2016 by Austin Bowles MD IMPLANT / DEVICES [id number] Arcom Xl 44-41 Std +3 Humeral Brg - [id number] Left: [employer] 07/20 XL [id number] / Implanted: Qty: 1 on 10/19/2016 by Austin Bowles MD IMPLANT Shoulder / DEVICES [id number] Humeral Tray With Locking Ring +5 Left: [employer] 03/31/2026 [id number] / Implanted: Qty: 1 on 10/19/2016 by Austin Bowles MD Shoulder / [id number] Results Not on fileafter 07/04/2017 Insurance Payer Benefit Plan / Group Subscriber ID Type Phone Address [facility] MEDICARE [facility] DUAL COMPLETE MCR xxxxxxxxx O [facility] MEDICAID [facility] COMM STAR+ BRIA xxxxxxxxx O Advance Directives Patient has advance care planning documents on file. For more information, please contact:Derrick [id number] [facility] [[email or web address]], [place] [id number]
--- NOTE | 2018-07-05 09:51 | EKG ---
Test Date: 2018-07-05 Test Time: 08:51:48 Correction Officer: STEPHANIE MEASUREMENT RESULTS: Intervals: Rate: 58 SD: QRSD: 72 QT: 458 QTc: 449 [place]more: P: SD: QRS: -2 T: -7 INTERPRETIVE STATEMENTS: Sinus bradycardia Moderate voltage criteria for LVH, may be normal variant Abnormal ECG Compared to ECG 06/17/2018 10:15:17 Sinus rhythm no longer present Electronically Signed On 07-05-18 09:51:12 OUTSIDE SALES ACCOUNT REPRESENTATIVE by Rich Grissom
[2018-07-05 10:12] LABS: Absolute Lymphocytes (CBC) 1.1 K/uL (0.7-4.9); Absolute Monocytes 0.5 K/uL (0.1-1.3); Absolute Neutrophil 3.3 K/uL (1.8-8.0); Basophils % 0.6 % (0-1.3); Eosinophils % 1.3 % (0-4.4); Lymphocytes % 22.7 % (15.3-44.8); MPV 8.6 fL (7.6-11.3); Monocytes % 9.3 % (3.3-12.3); RBC Red Blood Cell Count 4.62 M/uL (3.86-4.86)
--- NOTE | 2018-07-05 10:12 | RAD REPORT ---
EXAM DESCRIPTION: CT - Thorax W/ Con - 07/05/2018 9:31 am CLINICAL HISTORY: Chest pain COMPARISON: March 2018 TECHNIQUE: Computed axial tomography of the chest was obtained. 100 cc Isovue 300 was administered i ntravenously. All CT scans are performed using dose optimization technique as appropriate and may include automated exposure control or mA/KV adjustment according to patient size. FINDINGS: Mild chronic appearing interstitial opacities are present within the lungs. No mediastinal or hilar lymphadenopathy is seen. A pleural effusion is not present. A pericardial effusion is not seen. A moderate hiatal hernia is present IMPRESSION: A moderate hiatal hernia
[2018-07-05 10:15] LABS: Protime INR 1.02
[2018-07-05 10:16] LABS: ALT/SGPT 40 U/L (12-78); AST/SGOT 41 U/L (15-37); Albumin 3.2 g/dL (3.4-5.0); Alkaline Phosphatase 82 U/L (45-117); BUN Blood Urea Nitrogen 22 mg/dL (7-18); Bicarbonate 27 mmol/L (21-32); Bilirubin Direct 0.1 mg/dL (0-0.2); Bilirubin Total 0.3 mg/dL (0.2-1.0); Glucose Level 99 mg/dL (74-106); Magnesium 2.1 mg/dL (1.8-2.4); NT PRO-BNP 291 pg/mL (<125); Potassium 3.8 mmol/L (3.5-5.1); Protein, Total 6.9 g/dL (6.4-8.2); Sodium Level 142 mmol/L (136-145); Troponin (Emerg Dept Use Only) < 0.02 ng/mL (0.0-0.045)
--- NOTE | 2018-07-05 10:20 | RAD REPORT ---
EXAM DESCRIPTION: RAD - Chest Single View - 07/05/2018 10:13 am CLINICAL HISTORY: CHEST PAIN Chest pain. COMPARISON: Chest Single View dated 04/18/2018; Chest Single View dated 04/01/2018; Chest Pa And Lat (2 Views) dated 03/13/2018; Chest Single View dated 03/12/2018 FINDINGS: Portable technique limits examination quality. The lungs are grossly clear. The heart is mildly prominent in size. No displaced fractures.Bilateral shoulder arthroplasties noted. IMPRESSION: No acute intrathoracic process suspected.
--- NOTE | 2018-07-05 10:26 | RAD REPORT ---
EXAM DESCRIPTION: Sonido Angio07/05/2018 9:31 am CLINICAL HISTORY: Neck pain/CVA COMPARISON: None TECHNIQUE: 50 cc Isovue 370 was administered intravenously. 3D MIP reconstruction performed All CT scans are performed using dose optimization technique as appropriate and may include automated exposure control or mA/KV adjustment according to patient size. FINDINGS: Artifact from bilateral humeral prostheses limits evaluation of portions of the common ca rotid arteries. The right internal carotid artery is very tortuous. Otherwise, the common carotid, internal carotid and external carotid arteries appear unremarkable. A stenosis is not noted. A dissection is not seen The vertebral arteries appear unremarkable IMPRESSION: Tortuous right internal carotid artery. Otherwise, unremarkable exam NASCET criteria used. Mild 0-49% stenosis Moderate 50-69% stenosis Severe 70-99% stenosis
[2018-07-05] MEDS ORDERED: ONDANSETRON 4 MG/2 ML VIAL ONE (10:35)
[2018-07-05] MEDS ORDERED: MEPERIDINE HCL 25 MG/0.5 ML ONE (10:35)
[2018-07-05 10:48] LABS: Anisocytosis 1+; Blood Morphology Comment NOTED (NOT SEEN); Hypochromasia 1+; Platelet Estimate ADEQ
--- NOTE | 2018-07-05 13:32 | ER ---
Nurse's Notes [facility] Name: Marjan Fleming Age: 63 yrs Sex: Female : 1955 Arrival Date: 07/05/2018 Time: 08:43 Bed 5 Private MD: Diagnosis: Chest pain, unspecified Presentation: 07/05 08:45 Presenting complaint: Patient states: chest tightness that began just after having EGD ss completed at the GI center this morning. Transition of care: GI center. Onset of symptoms was July 05, 2018. Risk Assessment: Do you want to hurt yourself or someone else? Patient reports no desire to harm self or others. Initial Sepsis Screen: Does the patient meet any 2 criteria? No. Patient's initial sepsis screen is negative. Does the patient have a suspected source of infection? No. Patient's initial sepsis screen is negative. Care prior to arrival: None. 08:45 Method Of Arrival: EMS: [facility] 08:45 Acuity: BLAYNE 3 ss Historical: - Allergies: 08:54 Bactrim DS; ss 08:54 Codeine; ss 08:54 metoclopramide HCl; ss 08:54 Stadol; ss - PMHx: 08:54 Anxiety; Atrial Fib; Bipolar disorder; Chronic pain; COPD; esophageal varices; ss Hepatitis; HIV; Hypertension; Migraines; Panic Attacks; - Immunization history:: Adult Immunizations up to date. - Social history:: Smoking status: Patient/guardian denies using tobacco. - Ebola Screening: : Patient denies exposure to infectious person Patient denies travel to an Ebola-affected area in the 21 days before illness onset. - Family history:: not pertinent. - Hospitalizations: : No recent hospitalization is reported. Screenin:10 Abuse screen: Denies threats or abuse. Denies injuries from another. Nutritional sg screening: No deficits noted. Tuberculosis screening: No symptoms or risk factors identified. Never had TB. Fall Risk None identified. Assessment: 09:10 General: Appears in no apparent distress. uncomfortable, well groomed, well developed, sg well nourished, Behavior is cooperative, crying. Pain: Complains of pain in chest Quality of pain is described as aching, heavy. Neuro: Level of Consciousness is awake, alert, obeys commands, Oriented to person, place, time, situation, Painter Set are equal bilaterally Moves all extremities. Speech is normal. Cardiovascular: Patient's skin is warm and dry. Chest pain is denied. Respiratory: Airway is patent Respiratory effort is even, unlabored, Respiratory pattern is regular, symmetrical. GI: Abdomen is round non-distended. : No signs and/or symptoms were reported regarding the genitourinary system. EENT: No signs and/or symptoms were reported regarding the EENT system. Derm: Skin is pink, warm \T\ dry. Musculoskeletal: No signs and/or symptoms reported regarding the musculoskeletal system. 10:10 Reassessment: Patient appears in no apparent distress at this time. Patient and/or sg family updated on plan of care and expected duration. Pain level reassessed. Patient is alert, oriented x 3, equal unlabored respirations, skin warm/dry/pink. 11:20 Reassessment: Patient appears in no apparent distress at this time. Patient and/or sg family updated on plan of care and expected duration. Pain level reassessed. Patient is alert, oriented x 3, equal unlabored respirations, skin warm/dry/pink. 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 12:20 Reassessment: Patient appears in no apparent distress at this time. Patient and/or sg family updated on plan of care and expected duration. Pain level reassessed. Patient is alert, oriented x 3, equal unlabored respirations, skin warm/dry/pink. awaiting new orders at this time. Vital Signs: 08:54 Resp 16; Temp 98.3(TE); Weight 90.72 kg; Height 5 ft. 4 in. (162.56 cm); Pain 9/10; ss 09:00 BP 124 / 64; Temp 98.2; sg 09:00 Pulse 62; sg 11:00 BP 124 / 64; Pulse 66; Resp 17; Pulse Ox 98% on R/A; sg 13:00 BP 122 / 60; Pulse 67; Resp 17; Pulse Ox 98% on R/A; sg 08:54 Body Mass Index 34.33 (90.72 kg, 162.56 cm) ED Course: 08:43 Patient arrived in ED. 08:44 Ramon Baker MD is Attending Physician. snw 08:53 Triage completed. ss 08:54 Arm band placed on right wrist. ss 09:02 EKG done, by copy technician. reviewed by Ramon Baker MD. at1 09:10 Radiology exam delayed due to IV AT TIME OF ARRIVAL FOR CXR. sw 09:10 Patient has correct armband on for positive identification. potline monitor on. Pulse sg ox on. NIBP on. Warm blanket given. Head of bed elevated. 09:33 CT Chest W/ Con In Process Unspecified. EDMS 09:34 CT Neck Angio In Process Unspecified. EDMS 10:03 Samson Recinos, RN is Primary Nurse. sg 10:12 X-ray completed. Portable x-ray completed in exam room. Patient tolerated procedure jb2 well. 10:15 XRAY Chest (1 view) In Process Unspecified. EDMS 12:28 EKG done, by copy technician. reviewed by Ramon Baker MD Repeat EKG. at1 13:55 No provider procedures requiring assistance completed. IV discontinued, intact, ss bleeding controlled, No redness/swelling at site. Pressure dressing applied. Patient maintains SpO2 saturation greater than 95% on room air. Administered Medications: 10:30 Drug: Demerol 25 mg Route: IVP; Site: right hand; sg 13:54 Follow up: Response: No adverse reaction; Pain is decreased ss 10:30 Drug: Zofran 4 mg Route: IVP; Site: right hand; sg 13:54 Follow up: Response: No adverse reaction ss Outcome: 13:32 Discharge ordered by . rn 13:55 Discharged to home ambulatory, with friend. ss 13:55 Condition: good 13:55 Demonstrated understanding of instructions, follow-up care, medications. 13:56 Patient left the ED. ss Signatures: Dispatcher [employer] EDMS Samson Recinos, RN RN sg Cristina Washburn, ORACLE SOA CONSULTANT-C ORACLE SOA CONSULTANT-Csnw Stephen Ennis2 Ramon Baker MD MD rn Smirch, Shelby, RN RN ss Danielle Leo, commercial sales specialist EKG Tat1 [place] Corrections: (The following items were deleted from the chart) 09:20 09:00 BP 124 / 64; Temp 97.2F; sg sg
--- NOTE | 2018-07-05 13:32 | EDPHYS ---
Physician Documentation [facility] Name: Marjan Fleming Age: 63 yrs Sex: Female : 1955 Arrival Date: 07/05/2018 Time: 08:43 Bed 5 Private MD: ED Physician Ramon Baker HPI: 07/05 08:53 This 63 yrs old Female presents to ER via Unassigned with complaints of Chest rn Pain. 08:53 The patient or guardian reports chest pain that is located primarily in the chest rn diffusely. Onset: just prior to arrival. The pain does not radiate. The chest pain is described as a heaviness. Modifying factors: The symptoms are alleviated by nothing. the symptoms are aggravated by nothing. Severity of pain: At its worst the pain was moderate in the emergency department the pain has improved. The patient has experienced similar episodes in the past. Reports getting GI procedure performed, was getting esophagus dilated, after procedure began to have chest pain, 10/10, tingling to left neck/jaw/face, has been happening for last few days, no fever, + nausea. . Historical: - Allergies: 08:54 Bactrim DS; ss 08:54 Codeine; ss 08:54 metoclopramide HCl; ss 08:54 Stadol; ss - PMHx: 08:54 Anxiety; Atrial Fib; Bipolar disorder; Chronic pain; COPD; esophageal varices; ss Hepatitis; HIV; Hypertension; Migraines; Panic Attacks; - Immunization history:: Adult Immunizations up to date. - Social history:: Smoking status: Patient/guardian denies using tobacco. - Ebola Screening: : Patient denies exposure to infectious person Patient denies travel to an Ebola-affected area in the 21 days before illness onset. - Family history:: not pertinent. - Hospitalizations: : No recent hospitalization is reported. ROS: 08:53 Constitutional: Negative for fever, chills, and weight loss, Eyes: Negative for injury, rn pain, redness, and discharge, Neck: Negative for injury, pain, and swelling, Cardiovascular: Negative for palpitations, and edema, Respiratory: Negative for shortness of breath, cough, wheezing, and pleuritic chest pain, Abdomen/GI: Negative for abdominal pain, vomiting, diarrhea, and constipation, MS/Extremity: Negative for injury and deformity, Skin: Negative for injury, rash, and discoloration, Neuro: Negative for headache, weakness, numbness, tingling, and seizure. Exam: 08:53 Constitutional: This is a well developed, well nourished patient who is awake, alert, rn and in no acute distress. Head/Face: Normocephalic, atraumatic. Eyes: Pupils equal round and reactive to light, extra-ocular motions intact. Lids and lashes normal. Conjunctiva and sclera are non-icteric and not injected. Cornea within normal limits. Periorbital areas with no swelling, redness, or edema. Cardiovascular: Regular rate and rhythm. No pulse deficits. Respiratory: Lungs have equal breath sounds bilaterally, clear to auscultation. No increased work of breathing, no retractions or nasal flaring. Abdomen/GI: soft, non-tender Skin: Warm, dry with normal turgor. Normal color with no rashes, no lesions, and no evidence of cellulitis. MS/ Extremity: Pulses equal, no cyanosis. Neurovascular intact. Full, normal range of motion. Equal circumference. Neuro: Awake and alert, GCS 15, oriented to person, place, time, and situation. Cranial nerves II-XII grossly intact. Motor strength 5/5 in all extremities. Sensory grossly intact. 10:28 ECG was reviewed by the Attending Physician. rn Vital Signs: 08:54 Resp 16; Temp 98.3(TE); Weight 90.72 kg; Height 5 ft. 4 in. (162.56 cm); Pain 9/10; ss 09:00 BP 124 / 64; Temp 98.2; sg 09:00 Pulse 62; sg 11:00 BP 124 / 64; Pulse 66; Resp 17; Pulse Ox 98% on R/A; sg 13:00 BP 122 / 60; Pulse 67; Resp 17; Pulse Ox 98% on R/A; sg 08:54 Body Mass Index 34.33 (90.72 kg, 162.56 cm) ss MDM: 08:47 Patient medically screened. snw 13:30 Differential diagnosis: acute myocardial infarction, acute pericarditis, anxiety, chest rn wall pain, costochondritis, esophagitis, gastritis, pleurisy, pneumothorax, esophageal perforation. Data reviewed: vital signs, nurses notes, lab test result(s), EKG, radiologic studies, and as a result, I will discharge patient. Counseling: I had a detailed discussion with the patient and/or guardian regarding: the historical points, exam findings, and any diagnostic results supporting the discharge/admit diagnosis, lab results, radiology results, the need for outpatient follow up, to return to the emergency department if symptoms worsen or persist or if there are any questions or concerns that arise at home. Response to treatment: the patient's symptoms have markedly improved after treatment. Special discussion: Based on the patient's history, exam, and Dx evaluation, there is no indication for emergent intervention or inpatient Tx. It is understood by the patient/guardian that if the Sx's persist or worsen they need to return immediately for re-evaluation. I discussed with the patient/guardian in detail that at this point there is no indication for admission to the hospital. It is understood, however, that if the symptoms persist or worsen the patient needs to return immediately for re-evaluation. ED course: Workup neg, trop neg x 2, neg ct chest and neck, on phone and feels much better.. 07/05 08:47 Order name: Basic Metabolic Panel; Complete Time: 10:18 snw 07/05 08:47 Order name: CBC with Diff; Complete Time: 10:54 snw 07/05 08:47 Order name: LFT's; Complete Time: 10:18 snw 07/05 08:47 Order name: Magnesium; Complete Time: 10:18 snw 07/05 08:47 Order name: NT PRO-BNP; Complete Time: 10:18 snw 07/05 08:47 Order name: PT-INR; Complete Time: 10:29 snw 07/05 08:47 Order name: Troponin (emerg Dept Use Only); Complete Time: 10:18 snw 07/05 08:47 Order name: XRAY Chest (1 view); Complete Time: 10:33 snw 07/05 08:47 Order name: CT Chest W/ Con; Complete Time: 10:29 snw 07/05 08:47 Order name: CT Neck Angio; Complete Time: 10:33 snw 07/05 10:49 Order name: Manual Differential; Complete Time: 10:54 EDMS 07/05 11:58 Order name: Troponin (emerg Dept Use Only); Complete Time: 13:30 rn 07/05 08:47 Order name: EKG; Complete Time: 08:48 snw 07/05 08:47 Order name: Cardiac monitoring; Complete Time: 08:55 snw 07/05 08:47 Order name: EKG - Nurse/Tech; Complete Time: 08:55 snw 07/05 08:47 Order name: IV Saline Lock; Complete Time: 09:45 snw 07/05 08:47 Order name: Labs collected and sent; Complete Time: 09:45 snw 07/05 08:47 Order name: O2 Per Protocol; Complete Time: 08:55 snw 07/05 08:47 Order name: O2 Sat Monitoring; Complete Time: 08:55 snw 07/05 11:58 Order name: EKG; Complete Time: 11:58 rn 07/05 11:58 Order name: EKG - Nurse/Tech; Complete Time: 12:29 rn EC:28 Rate is 58 beats/min. Rhythm is regular. QRS Meredith is Normal. OR interval is normal. QRS rn interval is normal. QT interval is normal. No Q waves. T waves are Normal. No ST changes noted. Clinical impression: NSR w/ Non-specific ST/T Changes. Interpreted by me. Administered Medications: 10:30 Drug: Demerol 25 mg Route: IVP; Site: right hand; 13:54 Follow up: Response: No adverse reaction; Pain is decreased ss 10:30 Drug: Zofran 4 mg Route: IVP; Site: right hand; sg 13:54 Follow up: Response: No adverse reaction ss Disposition: 07/05/18 13:32 Discharged to Home. Impression: Chest pain, unspecified. - Condition is Stable. - Discharge Instructions: Nonspecific Chest Pain. - Medication Reconciliation Form, Thank You Letter, Antibiotic Education, Prescription Opioid Use form. - Follow up: Private Physician; When: As needed; Reason: Recheck today's complaints, Re-evaluation by your physician. - Problem is new. - Symptoms have improved. Signatures: Dispatcher [employer] EDSamson Hightower RN RN Cristina Dickerson, MAIL CARRIER TECHNICIAN-C MAIL CARRIER TECHNICIAN-Csnw Ramon Baker MD MD rn Smirch, Shelby, RN RN ss Corrections: (The following items were deleted from the chart) 13:56 13:32 07/05/2018 13:32 Discharged to Home. Impression: Chest pain, unspecified. ss Condition is Stable. Forms are Medication Reconciliation Form, Thank You Letter, Antibiotic Education, Prescription Opioid Use. Follow up: Private Physician; When: As needed; Reason: Recheck today's complaints, Re-evaluation by your physician. Problem is new. Symptoms have improved. rn
[2018-07-05 14:02] VITALS: TEMP 98.2
[2018-07-05 14:03] VITALS: O2SAT 98
[2018-07-05 14:04] VITALS: BP 122/60
--- NOTE | 2018-07-05 16:45 | EKG ---
Test Date: 2018-07-05 Test Time: 12:19:43 Pattern Setter: STEPHANIE MEASUREMENT RESULTS: Intervals: Rate: 64 FL: 192 QRSD: 84 QT: 436 QTc: 449 Shafter: P: 82 FL: 192 QRS: 1 T: 1 INTERPRETIVE STATEMENTS: Normal sinus rhythm Minimal voltage criteria for LVH, may be normal variant Nonspecific T wave abnormality Abnormal ECG Compared to ECG 07/05/2018 08:51:48 T-wave abnormality now present Sinus bradycardia no longer present Electronically Signed On 07-05-18 16:44:06 GEAR ROOM KEEPER by Rich Grissom
== END 2018-07-05 13:56 | disposition home or self-care (01) ==
LOC: ER 08:41
DX: R07.9 Chest pain, unspecified (principal); I10 Essential (primary) hypertension; I48.91 Unspecified atrial fibrillation; Z21 Asymptomatic human immunodeficiency virus [HIV] infection status; Z88.1 Allergy status to other antibiotic agents; Z88.5 Allergy status to narcotic agent; Z88.8 Allergy status to other drugs, medicaments and biological substances
CPT/HCPCS: 36415; 70498; 71045; 71260; 80048; 80076; 83735; 83880; 84484 ×2; 85025; 85610; 93005 ×2; J2175; J2405; Q9967

== ENCOUNTER 2018-09-09 17:35 | Emergency (ER) | payer OTHER ==
--- OUTSIDE RECORDS SUMMARY | 2018-09-09 17:37 | XMS REPORT ---
:1955 [facility] Address [address] [place] [address] Dr. Obrien[address] [place] [id number] Care Team Providers Name Role Phone Unavailable Unavailable Unavailable Problems This patient has no known problems. Allergies, Adverse Reactions, Alerts This patient has no known allergies or adverse reactions. Medications This patient has no known medications.
--- OUTSIDE RECORDS SUMMARY | 2018-09-09 17:37 | XMS REPORT | Clinical Summary ---
:1955 Author Organization [facility] Address [address] [place] [address] Care Team Providers Name Role Phone Asked, [...] 01/22/2006 COLON CANCER SCREENING 01/22/2006 SHINGLES VACCINES (#1) 01/22/2006 INFLUENZA VACCINE 12/21/2018 Implants Implanted Type Area Loading Machine Adjuster Device Shelf Model / Identifier Expiration Serial / Date Lot Versa-Dial/Comp Ti Std Taper Used W/25mm Glenoid Basplate - [id number] N/ A: N/A [employer] 01/22/2026 [id number] / Implanted: Qty: 1 on 10/19/2016 by Austin Bowles MD IMPLANT / DEVICES [id number] 41mm Comprehensive Reverse Shoulder Glenosphere Ba - [id number] N/A: N/A [employer] 11/21/2023 [id number] / Implanted: Qty: 1 on 10/19/2016 by Austin Bowles MD IMPLANT / DEVICES [id number] Arcom Xl 44-41 Std +3 Humeral Brg - [id number] [id number] Left: [employer] 07/20 XL [id number] / Implanted: Qty: 1 on 10/19/2016 by Austin Bowles MD IMPLANT Shoulder / DEVICES [id number] Humeral Tray With Locking Ring +5 Left: [employer] 03/31/2026 [id number] / Implanted: Qty: 1 on 10/19/2016 by Austin Bowles MD Shoulder / [id number] Results Not on fileafter 09/08/2017 Insurance Payer Benefit Plan / Group Subscriber ID Type Phone Address [facility] MEDICARE [facility] DUAL COMPLETE MCR xxxxxxxxx O [facility] MEDICAID [facility] COMM STAR+ BRIA xxxxxxxxx O Advance Directives Patient has advance care planning documents on file. For more information, please contact:Derrick Alejo[address] [place] [address]
[2018-09-09] MEDS ORDERED: ONDANSETRON 4 MG/2 ML VIAL ONE (18:15)
[2018-09-09] MEDS ORDERED: NA CHLORIDE 0.9% 1,000 ML ONE (18:15)
--- NOTE | 2018-09-09 19:20 | RAD REPORT ---
EXAM DESCRIPTION: RAD - Chest Single View - 09/09/2018 6:31 pm CLINICAL HISTORY: Chest pain, abdominal pain, vomiting COMPARISON: June 2018 TECHNIQUE: AP portable chest image was obtained 1828 hour . FINDINGS: Lung volumes are low. No focal lung parenchymal process. Lung markings are similar to comp arison. Heart and vasculature are normal. No measurable pleural effusion and no pneumothorax. No acut e bony abnormality seen. No acute aortic findings suspected. IMPRESSION: No acute cardiopulmonary process. No significant change from comparison.
[2018-09-09] MEDS ORDERED: ONDANSETRON 4 MG (ODT) TAB ONE (19:23)
[2018-09-09 20:02] LABS: Absolute Lymphocytes (CBC) 0.3 K/uL (0.7-4.9); Absolute Monocytes 0.3 K/uL (0.1-1.3); Absolute Neutrophil 9.5 K/uL (1.8-8.0); Basophils % 0.2 % (0-1.3); Eosinophils % 0.1 % (0-4.4); Hematocrit 36.8 % (36.0-45.0); Lymphocytes % 3.1 % (15.3-44.8); MPV 7.8 fL (7.6-11.3); Monocytes % 3.3 % (3.3-12.3); RBC Red Blood Cell Count 5.54 M/uL (3.86-4.86)
[2018-09-09 20:04] LABS: Protime INR 1.03
[2018-09-09] MEDS ORDERED: LORazepam 2 MG/ML VIAL ONE (20:10)
[2018-09-09] MEDS ORDERED: FAMOTIDINE 20 MG/2 ML VIAL IV ONE (20:10)
[2018-09-09 20:20] LABS: ALT/SGPT 35 U/L (12-78); AST/SGOT 40 U/L (15-37); Albumin 3.7 g/dL (3.4-5.0); Alkaline Phosphatase 99 U/L (45-117); BUN Blood Urea Nitrogen 29 mg/dL (7-18); Bicarbonate 27 mmol/L (21-32); Bilirubin Direct 0.1 mg/dL (0-0.2); Bilirubin Total 0.5 mg/dL (0.2-1.0); Glucose Level 122 mg/dL (74-106); Lipase 159 U/L (73-393); Magnesium 2.3 mg/dL (1.8-2.4); NT PRO-BNP 338 pg/mL (<125); Potassium 3.8 mmol/L (3.5-5.1); Protein, Total 8.2 g/dL (6.4-8.2); Sodium Level 142 mmol/L (136-145); Troponin (Emerg Dept Use Only) < 0.02 ng/mL (0.0-0.045)
[2018-09-09] MEDS ORDERED: PROMETHAZINE 25 MG/ML VIAL ONE ×2 (21:13→23:38)
[2018-09-09] MEDS ORDERED: NA CHLORIDE 0.9% 0 ML ONE (21:13)
[2018-09-09 21:40] LABS: Anisocytosis 1+; Blood Morphology Comment NOTED (NOT SEEN); Hypochromasia 1+; Platelet Estimate ADEQ
[2018-09-09] MEDS ORDERED: NA CHLORIDE 0.9% 500 ML ONE ×2 (21:57→23:01)
--- NOTE | 2018-09-09 22:46 | ER ---
Nurse's Notes [facility] Name: Marjan Fleming Age: 63 yrs Sex: Female : 1955 Arrival Date: 09/09/2018 Time: 17:38 Bed 13 Private MD: Lele Rahman H Diagnosis: Vomiting;Chest pain, unspecified Presentation: 09/09 17:48 Presenting complaint: Patient states: She's been throwing up since 0700 this morning, aj1 she has chest pain when she breaths in and her "stomach feels like its on fire" Reports fever at home, she is unsure how high. Reports N/V/D. Denies cough, congestion. Transition of care: patient was not received from another setting of care. Onset of symptoms was September 09, 2018 at 07:00. Risk Assessment: Do you want to hurt yourself or someone else? Patient reports no desire to harm self or others. Initial Sepsis Screen: Does the patient meet any 2 criteria? No. Patient's initial sepsis screen is negative. Does the patient have a suspected source of infection? Yes: Acute abdominal pain. Care prior to arrival: None. 17:48 Method Of Arrival: Wheelchair aj1 17:48 Acuity: BLAYNE 3 aj1 Triage Assessment: 17:53 General: Appears in no apparent distress. uncomfortable, Behavior is cooperative, aj1 anxious. Pain: Complains of pain in chest and abdomen Pain currently is 10 out of 10 on a pain scale. Neuro: Level of Consciousness is awake, alert, obeys commands, Oriented to person, place, time, situation. Cardiovascular: Patient's skin is warm and dry. Respiratory: Airway is patent Respiratory effort is even, unlabored, Respiratory pattern is regular, symmetrical. GI: Reports lower abdominal pain, upper abdominal pain, diarrhea, nausea, vomiting. Historical: - Allergies: 17:53 Bactrim DS; aj1 17:53 Codeine; aj1 17:53 metoclopramide HCl; aj1 17:53 Stadol; aj1 - Home Meds: 17:53 Albuterol Inhl [Active]; Descovy 200-25 mg Oral tab 1 tab once daily [Active]; aj1 Hydralazine Oral [Active]; lisinopril Oral [Active]; Lorazepam Oral [Active]; Metoprolol Tartrate Oral [Active]; Norvasc Oral [Active]; raltegravir Oral [Active]; Trimethoprim-Sulfamethoxazole Oral [Active]; - PMHx: 17:53 Anxiety; Atrial Fib; Bipolar disorder; Chronic pain; COPD; esophageal varices; aj1 Hepatitis; HIV; Hypertension; Migraines; Panic Attacks; - Immunization history:: Flu vaccine is up to date. - Social history:: Smoking status: Patient/guardian denies using tobacco. - Ebola Screening: : Patient denies travel to an Ebola-affected area in the 21 days before illness onset. Screenin:58 Abuse screen: Denies threats or abuse. Nutritional screening: No deficits noted. rb1 Tuberculosis screening: No symptoms or risk factors identified. Fall Risk None identified. Assessment: 17:58 General: Appears in no apparent distress. comfortable, Behavior is calm, cooperative, rb1 Reports fever for. Pain: Complains of pain in abdomen and chest Pain currently is 8 out of 10 on a pain scale. Pain began This morning. Neuro: Level of Consciousness is awake, alert, obeys commands, Oriented to person, place, time, situation. Cardiovascular: Capillary refill < 3 seconds is brisk in bilateral fingers. Respiratory: Airway is patent Respiratory effort is even, unlabored, Respiratory pattern is regular, symmetrical. GI: Reports nausea, vomiting. : No signs and/or symptoms were reported regarding the genitourinary system. Derm: Bruising that is dark purple, on right arm and left arm. Musculoskeletal: Range of motion: limited in left shoulder. 18:46 Reassessment: Patient appears in no apparent distress at this time. No changes from rb1 previously documented assessment. 19:30 Reassessment: No changes from previously documented assessment. Patient and/or family jb4 updated on plan of care and expected duration. Pain level reassessed. Patient is alert, oriented x 3, equal unlabored respirations, skin warm/dry/pink. PT reports that oral zofran did not help. Provider notified, instructed to give original dose of IVP zofran. 20:35 Reassessment: Patient appears in no apparent distress at this time. Patient and/or jb4 family updated on plan of care and expected duration. Pain level reassessed. Patient is alert, oriented x 3, equal unlabored respirations, skin warm/dry/pink. Patient states feeling better. 20:40 Reassessment: Pt refused GI cocktail. jb4 21:45 Reassessment: No changes from previously documented assessment. Patient and/or family jb4 updated on plan of care and expected duration. Pain level reassessed. Patient is alert, oriented x 3, equal unlabored respirations, skin warm/dry/pink. Dilaudid not given, pt does not have a ride home. 22:45 Reassessment: Patient appears in no apparent distress at this time. Patient and/or jb4 family updated on plan of care and expected duration. Pain level reassessed. Patient is alert, oriented x 3, equal unlabored respirations, skin warm/dry/pink. Pt is waiting for fluid to finish prior to discharge. Patient states feeling better. 23:30 Reassessment: Patient and/or family updated on plan of care and expected duration. Pain jb4 level reassessed. Patient is alert, oriented x 3, equal unlabored respirations, skin warm/dry/pink. PT vomiting, provider notified, no new orders at this time. 23:49 Reassessment: Pt under continued observation due to administration of Ativan \\T\\ 2009. jb4 09/10 00:09 Reassessment: PT discharged from ED, Ambulatory with steady gait and no assistance. jb4 Alert and oriented. respirations even and unlabored. IV dc'ed intact and bleeding controlled. Patient states feeling better. Vital Signs: 09/09 17:53 BP 128 / 77; Pulse 79; Resp 8; Temp 98.2; Pulse Ox 99% on R/A; Weight 90.72 kg (R); aj1 Height 5 ft. 4 in. (162.56 cm) (R); Pain 10/10; 18:43 BP 135 / 83; Pulse 80; Resp 17; Pulse Ox 98% on R/A; rb1 19:30 BP 157 / 98; Pulse 92; Resp 16; Pulse Ox 100% on R/A; jb4 20:30 BP 151 / 72; Pulse 88; Resp 16; Pulse Ox 100% on R/A; jb4 21:45 BP 115 / 84; Pulse 84; Resp 16; Pulse Ox 98% on R/A; jb4 22:53 BP 149 / 90; Pulse 79; Resp 16; Pulse Ox 95% on R/A; jb4 23:45 BP 153 / 81; Pulse 88; Resp 16; Pulse Ox 98% on R/A; jb4 17:53 Body Mass Index 34.33 (90.72 kg, 162.56 cm) aj1 ED Course: 17:38 Patient arrived in ED. mr 17:38 Lele Rahman DO is Private Physician. mr 17:52 Triage completed. aj1 17:53 Arm band placed on Patient placed in an exam room. aj1 17:58 Austin Raza NP is PHCP. pm1 17:58 Patient has correct armband on for positive identification. Placed in gown. Bed in low rb1 position. Call light in reach. Side rails up X 1. health professional on. Pulse ox on. NIBP on. Warm blanket given. 17:59 Joey Jung MD is Attending Physician. pm1 18:17 Ness Landers, RN is Primary Nurse. rb1 18:29 EKG done, by ED staff, by assistive technology trainer. reviewed by Austin Raza NP. kj1 18:31 XRAY Chest (1 view) In Process Unspecified. EDMS 18:43 Missed attempt(s): 24 gauge in left antecubital area. Attempted by JOAO Payton. rb1 18:43 Missed attempt(s): 22 gauge in right forearm. rv 18:44 Missed attempt(s): 22 gauge in right forearm. mh5 18:45 Missed attempt(s): 20 gauge in right antecubital area. rv 18:58 Report given to ASHLEY Hernandez. rb1 19:48 Initial lab(s) drawn, by ca, sent to lab. Inserted saline lock: 20 gauge in left ,using bb aseptic technique. foot Blood collected. 20:02 Primary Nurse role handed off by Ness Landers, RN jb4 20:02 Mode Bhatt, RN is Primary Nurse. jb4 09/10 00:09 No provider procedures requiring assistance completed. IV discontinued, intact, jb4 bleeding controlled. Administered Medications: 09/09 19:10 Drug: Zofran 4 mg Route: PO; jb4 19:30 Follow up: Response: No adverse reaction; Vomiting unchanged jb4 19:40 Drug: Zofran 4 mg {Note: administered to left foot IVP over 2 minutes.} Route: IVP; jb4 Site: Other; 20:15 Follow up: Response: No adverse reaction; Nausea is decreased jb4 20:08 Drug: Pepcid 20 mg {Note: Administered to the left foot..} Route: IVP; Site: Other; jb4 20:30 Follow up: Response: No adverse reaction jb4 20:10 Drug: Ativan 0.5 mg {Note: Administered to the left foot.} Route: IVP; Site: Other; jb4 21:29 Follow up: Response: No adverse reaction; Anxiety unchanged jb4 21:10 Drug: Phenergan 25 mg Route: IM; Site: left gluteus; jb4 23:05 Follow up: Response: No adverse reaction; Nausea is decreased; Vomiting decreased jb4 21:27 Not Given (Patient Refused): GI Cocktail without - (Maalox Suspension 30 ml, jb4 Lidocaine Liquid 2 % 15 ml) PO once 21:53 Drug: NS 0.9% 500 ml {Note: Administered to left foot..} Route: IV; Rate: bolus; Site: [address]; 22:23 Follow up: Response: No adverse reaction; IV Status: Completed infusion; IV Intake: jb4 500ml 22:43 Not Given (Pt has no ride home): Dilaudid 1 mg IVP once jb4 22:50 Drug: NS 0.9% 500 ml {Note: left foot.} Volume: 500 ml; Route: IV; Rate: 1 bolus; Site: [address]; 23:20 Follow up: Response: No adverse reaction; IV Status: Completed infusion; IV Intake: jb4 500ml Intake: 22:23 IV: 500ml; Total: 500ml. jb4 23:20 IV: 500ml; Total: 1000ml. jb4 Outcome: 22:45 Discharge ordered by . pm1 09/10 00:09 Discharged to home via wheelchair. jb4 Condition: stable Discharge instructions given to patient, Instructed on discharge instructions, follow up and referral plans. medication usage, Demonstrated understanding of instructions, follow-up care, medications, Prescriptions given X 2. 00:14 Patient left the ED. jb4 Signatures: Dispatcher [employer] EDMS Teresa Guerrero RN RN aj1 Jessie Hill mr Dee Kennedy RN RN bb Barber, Rebecca, RN RN rb1 Marinas, Patrick, ICE DELIVERY DRIVER ICE DELIVERY DRIVER pm1 Mode Bhatt RN RN jb4 Laura Simons 5 Scott Yates RN RN Liv Pritchett kj1 Corrections: (The following items were deleted from the chart) 09/09 20:36 19:20 Reassessment: Patient appears in no apparent distress at this time. Patient jb4 and/or family updated on plan of care and expected duration. Pain level reassessed. Patient is alert, oriented x 3, equal unlabored respirations, skin warm/dry/pink. PT is back from CT reports having abdominal pain, denies wanting any pain medication. jb4 :36 19:20 GI: Abdomen is round non-distended, Bowel sounds present X 4 quads. Abd is soft jb4 and non tender X 4 quads. jb4
--- NOTE | 2018-09-09 22:46 | EDPHYS ---
Physician Documentation [facility] Name: Marjan Fleming Age: 63 yrs Sex: Female : 1955 Arrival Date: 09/09/2018 Time: 17:38 Bed 13 Private MD: Lele Rahman H ED Physician Joey Jung HPI: 09/09 18:36 This 63 yrs old Female presents to ER via Wheelchair with complaints of pm1 Vomiting, Chest Pain, Abdominal Pain. 18:36 The patient presents to the emergency department with nausea, vomiting, abdominal pain. pm1 Onset: The symptoms/episode began/occurred this morning, at 07:00. Possible causes: unknown, Ate chicken fried steak the night before. The symptoms are aggravated by nothing. The symptoms are alleviated by nothing. Associated signs and symptoms: Pertinent positives: abdominal pain, diarrhea, nausea, vomiting. Severity of symptoms: in the emergency department the symptoms are worse. The patient has not recently seen a physician, the patient's primary care provider is Dr. Rahman. Patient with onset of nausea and vomiting this AM at 0700. Ate chicken fried steak last night. Patient's chest pain is a burning sensation that started after the vomiting. Her chest pain feels like acid reflux from the vomiting. No shortness of breath. Historical: - Allergies: 17:53 Bactrim DS; aj1 17:53 Codeine; aj1 17:53 metoclopramide HCl; aj1 17:53 Stadol; aj1 - Home Meds: 17:53 Albuterol Inhl [Active]; Descovy 200-25 mg Oral tab 1 tab once daily [Active]; aj1 Hydralazine Oral [Active]; lisinopril Oral [Active]; Lorazepam Oral [Active]; Metoprolol Tartrate Oral [Active]; Norvasc Oral [Active]; raltegravir Oral [Active]; Trimethoprim-Sulfamethoxazole Oral [Active]; - PMHx: 17:53 Anxiety; Atrial Fib; Bipolar disorder; Chronic pain; COPD; esophageal varices; aj1 Hepatitis; HIV; Hypertension; Migraines; Panic Attacks; - Immunization history:: Flu vaccine is up to date. - Social history:: Smoking status: Patient/guardian denies using tobacco. - Ebola Screening: : Patient denies travel to an Ebola-affected area in the 21 days before illness onset. ROS: 18:36 Constitutional: Negative for fever, chills, and weight loss, Eyes: Negative for injury, pm1 pain, redness, and discharge, ENT: Negative for injury, pain, and discharge, Neck: Negative for injury, pain, and swelling. 18:36 Respiratory: Negative for shortness of breath, cough, wheezing, and pleuritic chest pain. 18:36 Back: Negative for injury and pain, : Negative for injury, bleeding, discharge, and swelling, MS/Extremity: Negative for injury and deformity, Skin: Negative for injury, rash, and discoloration, Neuro: Negative for headache, weakness, numbness, tingling, and seizure. 18:36 Cardiovascular: Positive for chest pain, Negative for edema, palpitations. 18:36 Abdomen/GI: Positive for abdominal pain, nausea and vomiting, Negative for diarrhea, constipation. Exam: 18:36 Constitutional: This is a well developed, well nourished patient who is awake, alert, pm1 and in no acute distress. Head/Face: Normocephalic, atraumatic. Eyes: Pupils equal round and reactive to light, extra-ocular motions intact. Lids and lashes normal. Conjunctiva and sclera are non-icteric and not injected. Cornea within normal limits. Periorbital areas with no swelling, redness, or edema. ENT: Nares patent. No nasal discharge, no septal abnormalities noted. Tympanic membranes are normal and external auditory canals are clear. Oropharynx with no redness, swelling, or masses, exudates, or evidence of obstruction, uvula midline. Mucous membranes moist. Neck: Trachea midline, no thyromegaly or masses palpated, and no cervical lymphadenopathy. Supple, full range of motion without nuchal rigidity, or vertebral point tenderness. No Meningismus. Chest/axilla: Normal chest wall appearance and motion. Nontender with no deformity. No lesions are appreciated. Cardiovascular: Regular rate and rhythm with a normal S1 and S2. No gallops, murmurs, or rubs. Normal PMI, no JVD. No pulse deficits. Respiratory: Lungs have equal breath sounds bilaterally, clear to auscultation and percussion. No rales, rhonchi or wheezes noted. No increased work of breathing, no retractions or nasal flaring. Abdomen/GI: Soft, non-tender, with normal bowel sounds. No distension or tympany. No guarding or rebound. No evidence of tenderness throughout. Back: No spinal tenderness. No costovertebral tenderness. Full range of motion. Skin: Warm, dry with normal turgor. Normal color with no rashes, no lesions, and no evidence of cellulitis. MS/ Extremity: Pulses equal, no cyanosis. Neurovascular intact. Full, normal range of motion. 18:36 Neuro: Orientation: is normal, Motor: is normal, moves all fours, Sensation: is normal, no obvious gross deficits. 19:00 NSR BPM 77 LVH pm1 Vital Signs: 17:53 BP 128 / 77; Pulse 79; Resp 8; Temp 98.2; Pulse Ox 99% on R/A; Weight 90.72 kg (R); aj1 Height 5 ft. 4 in. (162.56 cm) (R); Pain 10/10; 18:43 BP 135 / 83; Pulse 80; Resp 17; Pulse Ox 98% on R/A; rb1 19:30 BP 157 / 98; Pulse 92; Resp 16; Pulse Ox 100% on R/A; jb4 20:30 BP 151 / 72; Pulse 88; Resp 16; Pulse Ox 100% on R/A; jb4 21:45 BP 115 / 84; Pulse 84; Resp 16; Pulse Ox 98% on R/A; jb4 22:53 BP 149 / 90; Pulse 79; Resp 16; Pulse Ox 95% on R/A; jb4 23:45 BP 153 / 81; Pulse 88; Resp 16; Pulse Ox 98% on R/A; jb4 17:53 Body Mass Index 34.33 (90.72 kg, 162.56 cm) aj MDM: 18:04 Patient medically screened. pm1 19:12 ED course: No IV currently established. Will give the patient Zofran ODT. pm1 21:30 ED course: Patient refused GI cocktail and wants narcotics for pain. pm1 22:44 Data reviewed: vital signs. Data interpreted: Pulse oximetry: on room air is 98 %. pm1 Interpretation: normal. Counseling: I had a detailed discussion with the patient and/or guardian regarding: the historical points, exam findings, and any diagnostic results supporting the discharge/admit diagnosis, lab results, radiology results, the need for outpatient follow up, to return to the emergency department if symptoms worsen or persist or if there are any questions or concerns that arise at home. 09/09 18:19 Order name: Basic Metabolic Panel; Complete Time: 20:25 pm1 09/09 18:19 Order name: CBC with Diff; Complete Time: 21:46 pm1 09/09 18:19 Order name: LFT's; Complete Time: 20:25 pm1 09/09 18:19 Order name: Magnesium; Complete Time: 20:25 pm1 09/09 18:19 Order name: NT PRO-BNP; Complete Time: 20:25 pm1 09/09 18:19 Order name: PT-INR; Complete Time: 20:17 pm1 09/09 18:19 Order name: Troponin (emerg Dept Use Only); Complete Time: 20:25 pm1 09/09 18:19 Order name: XRAY Chest (1 view); Complete Time: 19:21 pm1 09/09 18:19 Order name: Lipase; Complete Time: 20:25 pm1 09/09 19:08 Order name: Flu; Complete Time: 19:51 pm1 09/09 20:05 Order name: Manual Differential; Complete Time: 21:46 EDMS 09/09 18:19 Order name: EKG; Complete Time: 18:21 pm1 09/09 18:19 Order name: Cardiac monitoring; Complete Time: 18:27 pm1 09/09 18:19 Order name: EKG - Nurse/Tech; Complete Time: 18:27 pm1 09/09 18:19 Order name: IV Saline Lock; Complete Time: 20:33 pm1 09/09 18:19 Order name: Labs collected and sent; Complete Time: 20:33 pm1 09/09 18:19 Order name: O2 Per Protocol; Complete Time: 18:28 pm1 09/09 18:19 Order name: O2 Sat Monitoring; Complete Time: 18:28 pm1 Administered Medications: 19:10 Drug: Zofran 4 mg Route: PO; jb4 19:30 Follow up: Response: No adverse reaction; Vomiting unchanged jb4 19:40 Drug: Zofran 4 mg {Note: administered to left foot IVP over 2 minutes.} Route: IVP; jb4 Site: Other; 20:15 Follow up: Response: No adverse reaction; Nausea is decreased jb4 20:08 Drug: Pepcid 20 mg {Note: Administered to the left foot..} Route: IVP; Site: Other; jb4 20:30 Follow up: Response: No adverse reaction jb4 20:10 Drug: Ativan 0.5 mg {Note: Administered to the left foot.} Route: IVP; Site: Other; jb4 21:29 Follow up: Response: No adverse reaction; Anxiety unchanged jb4 21:10 Drug: Phenergan 25 mg Route: IM; Site: left gluteus; jb4 23:05 Follow up: Response: No adverse reaction; Nausea is decreased; Vomiting decreased jb4 21:27 Not Given (Patient Refused): GI Cocktail without - (Maalox Suspension 30 ml, jb4 Lidocaine Liquid 2 % 15 ml) PO once 21:53 Drug: NS 0.9% 500 ml {Note: Administered to left foot..} Route: IV; Rate: bolus; Site: [address]; 22:23 Follow up: Response: No adverse reaction; IV Status: Completed infusion; IV Intake: jb4 500ml 22:43 Not Given (Pt has no ride home): Dilaudid 1 mg IVP once jb4 22:50 Drug: NS 0.9% 500 ml {Note: left foot.} Volume: 500 ml; Route: IV; Rate: 1 bolus; Site: [address]; 23:20 Follow up: Response: No adverse reaction; IV Status: Completed infusion; IV Intake: jb4 500ml Disposition: 09/09/18 22:45 Discharged to Home. Impression: Vomiting, Chest pain, unspecified. - Condition is Stable. - Discharge Instructions: Nonspecific Chest Pain, Nausea and Vomiting, Adult. - Prescriptions for Phenergan 25 mg Rectal Suppository - insert 1 suppository by RECTAL route every 6 hours As needed; 12 suppository. promethazine 25 mg Oral Tablet - take 1 tablet by ORAL route every 6 hours As needed; 20 tablet. - Medication Reconciliation Form, Thank You Letter, Antibiotic Education, Prescription Opioid Use form. - Follow up: Emergency Department; When: As needed; Reason: Worsening of condition. Follow up: Private Physician; When: 2 - 3 days; Reason: Recheck today's complaints, Continuance of care, Re-evaluation by your physician. - Problem is new. - Symptoms have improved. Addendum: 09/11/2018 07:11 Co-signature as Attending Physician, Joey Jung MD I agree with the assessment and k dr plan of care. Signatures: Dispatcher [employer] EDTeresa Martinez, RN RN aj1 Joey Jung MD MD [facility] Austin Raza, SHEET TAKER SHEET TAKER pm1 Mode Bhatt, RN RN jb4 Corrections: (The following items were deleted from the chart) 09/09 22:44 18:19 Urine Dipstick-Ancillary ordered. pm1 jb4 09/10 00:14 09/09 22:45 09/09/2018 22:45 Discharged to Home. Impression: Vomiting; Chest pain, jb4 unspecified. Condition is Stable. Forms are Medication Reconciliation Form, Thank You Letter, Antibiotic Education, Prescription Opioid Use. Follow up: Emergency Department; When: As needed; Reason: Worsening of condition. Follow up: Private Physician; When: 2 - 3 days; Reason: Recheck today's complaints, Continuance of care, Re-evaluation by your physician. Problem is new. Symptoms have improved. pm1
[2018-09-09] MEDS ORDERED: METOCLOPRAMIDE 10 MG/2mL INJ ONE (23:25)
[2018-09-10] MEDS ORDERED: ACETAMINOPHEN 500 MG TAB ONE (00:15)
[2018-09-10 01:17] VITALS: BP 153/81; O2SAT 98
[2018-09-10 01:26] VITALS: TEMP 97.8
--- NOTE | 2018-09-11 07:49 | EKG ---
Test Date: 2018-09-09 Test Time: 18:18:26 Clerical Aide Teacher: YAZAN MEASUREMENT RESULTS: Intervals: Rate: 77 OH: 126 QRSD: 78 QT: 382 QTc: 432 [place]: P: -9 OH: 126 QRS: -9 T: -6 INTERPRETIVE STATEMENTS: Normal sinus rhythm Voltage criteria for left ventricular hypertrophy Abnormal ECG Compared to ECG 07/05/2018 12:19:43 T-wave abnormality no longer present Electronically Signed On 09-11-18 07:48:16 CDT by Rich Grissom
== END 2018-09-10 00:14 | disposition home or self-care (01) ==
LOC: ER 17:35
DX: R11.2 Nausea with vomiting, unspecified (principal); R07.9 Chest pain, unspecified; R10.9 Unspecified abdominal pain; F41.9 Anxiety disorder, unspecified; I48.91 Unspecified atrial fibrillation; F31.9 Bipolar disorder, unspecified; J44.9 Chronic obstructive pulmonary disease, unspecified; I10 Essential (primary) hypertension; B20 Human immunodeficiency virus [HIV] disease; Z88.1 Allergy status to other antibiotic agents; Z88.5 Allergy status to narcotic agent
CPT/HCPCS: 96361; 93005; 85025; 80048; 36415; 83735; 85610; 80076; 84484; 83690; 83880; 87804 ×2; 71045; 96375; 96372; 96374; 99285; J2765; J2550; J7030; J2405

== ENCOUNTER 2018-09-14 16:23 | Emergency (ER) | payer OTHER ==
--- OUTSIDE RECORDS SUMMARY | 2018-09-14 16:26 | XMS REPORT | Clinical Summary ---
:1955 Author Organization [facility] Address [address] [place] [address] Care Team Providers Name Role Phone Asked, [...] INFLUENZA VACCINE 12/21/2018 Implants Implanted Type Area Technical Maintenance Technician Device Shelf Model / Identifier Expiration Serial / Date Lot Versa-Dial/Comp Ti Std Taper Used W/25mm Glenoid Basplate - [id number] N/ A: N/A [employer] 01/22/2026 [id number] / Implanted: Qty: 1 on 10/19/2016 by Austin Bowles MD IMPLANT / DEVICES [id number] 41mm Comprehensive Reverse Shoulder Glenosphere Ba - [id number] N/A: N/A [employer] 11/21/2023 [id number] / Implanted: Qty: 1 on 10/19/2016 by Austin Bowles MD IMPLANT / DEVICES [id number] Arcom Xl 44-41 Std +3 Humeral Brg - [id number] Left: [employer] 07/20 XL [id number] / Implanted: Qty: 1 on 10/19/2016 by Austin Bowles MD IMPLANT Shoulder / DEVICES [id number] Humeral Tray With Locking Ring +5 Left: [employer] 03/31/2026 [id number] / Implanted: Qty: 1 on 10/19/2016 by Austin Bowles MD Shoulder / [id number] Results Not on fileafter 09/13/2017 Insurance Payer Benefit Plan / Group Subscriber ID Type Phone Address [facility] MEDICARE [facility] DUAL COMPLETE MCR xxxxxxxxx O [facility] MEDICAID [facility] COMM STAR+ BRIA xxxxxxxxx O Advance Directives Patient has advance care planning documents on file. For more information, please contact:Derrick Alejo[address] [place] [address]
--- OUTSIDE RECORDS SUMMARY | 2018-09-14 16:26 | XMS REPORT ---
:1955 [facility] Address [address] [place] [address] Dr. Obrien[address] [place] [id number] Care Team Providers Name Role Phone Unavailable Unavailable Unavailable Problems This patient has no known problems. Allergies, Adverse Reactions, Alerts This patient has no known allergies or adverse reactions. Medications This patient has no known medications.
[2018-09-14 17:36] LABS: Absolute Lymphocytes (CBC) 1.6 K/uL (0.7-4.9); Absolute Monocytes 0.8 K/uL (0.1-1.3); Absolute Neutrophil 3.7 K/uL (1.8-8.0); Basophils % 0.9 % (0-1.3); Eosinophils % 0.7 % (0-4.4); Hematocrit 32.9 % (36.0-45.0); Lymphocytes % 25.5 % (15.3-44.8); Monocytes % 12.9 % (3.3-12.3); RBC Red Blood Cell Count 4.86 M/uL (3.86-4.86)
[2018-09-14 17:48] LABS: Potassium 3.6 mmol/L (3.5-5.1)
[2018-09-14] MEDS ORDERED: LORazepam 2 MG/ML VIAL ONE ×2 (17:59→18:22)
[2018-09-14 18:12] LABS: Anisocytosis 1+; Blood Morphology Comment NOTED (NOT SEEN); Hypochromasia 1+; Macrocytosis 1+; Platelet Estimate ADEQ; Polychromasia SLIGHT; Urine White Blood Cell Casts OK
[2018-09-14 18:13] LABS: Rouleau NOTED
--- NOTE | 2018-09-14 18:56 | RAD REPORT ---
EXAM DESCRIPTION: MRI - Brain W/Wo Cont - 09/14/2018 6:44 pm CLINICAL HISTORY: facial paresthesia Headache drowsiness, CVA symptomology. COMPARISON: Head Brain Wo Cont dated 06/17/2018 TECHNIQUE: Multi-sequence, multiplanar MR imaging of the brain was performed with contrast. FINDINGS: No intracranial hemorrhage, hydrocephalus, or extra-axial fluid collection.Moderate areas of T2 and FLAIR hyperintensity are seen in the periventricular and deep white matter compatible with chronic microvascular ischemic changes. No edema or shift of midline structures. No intracranial mass . DWI is negative for acute CVA. The midline structures are normally formed. Mastoid air cells and paranasal sinuses are clear. Post-contrast images show no abnormal enhancement to suggest tumor or infection. IMPRESSION: Negative for acute CVA or other acute intracranial abnormality. No pathologic post-contrast enhancement suspected.
--- NOTE | 2018-09-14 19:13 | EDPHYS ---
Physician Documentation [facility] Name: Marjan Fleming Age: 63 yrs Sex: Female : 1955 Arrival Date: 09/14/2018 Time: 16:26 Bed 19 Private MD: Lele Rahman H ED Physician Joey Jung HPI: 09/14 19:05 This 63 yrs old Female presents to ER via Ambulatory with complaints of Chest kdr Pain, Numbness Of Face. 19:06 The patient presents with CP that awoke her this morning at 04:30 and left face kdr numbness that has been ongoing for weeks. She has had similar CP previously and is better though not totally resolved now. She is not in any acute. She is smiling and happy. Onset: The symptoms/episode began/occurred As noted above. Severity of symptoms: At their worst the symptoms were mild in the emergency department the symptoms have improved moderately. The patient has experienced similar episodes in the past, multiple times. The patient has been recently seen by a physician: The patient has been seen in the ED for a myriad of complaints including the those today. Historical: - Allergies: 16:38 Bactrim DS; hj 16:38 Codeine; hj 16:38 metoclopramide HCl; hj 16:38 Stadol; hj - Home Meds: 16:42 Albuterol Inhl [Active]; Descovy 200-25 mg Oral tab 1 tab once daily [Active]; hj Hydralazine Oral [Active]; lisinopril Oral [Active]; Lorazepam Oral [Active]; Metoprolol Tartrate Oral [Active]; Norvasc Oral [Active]; raltegravir Oral [Active]; Trimethoprim-Sulfamethoxazole Oral [Active]; - PMHx: 16:38 Anxiety; Atrial Fib; Bipolar disorder; Chronic pain; COPD; esophageal varices; hj Hepatitis; HIV; Hypertension; Migraines; Panic Attacks; - PSHx: 16:38 Unable to obtain; hj - Immunization history:: Adult Immunizations unknown. - Social history:: Smoking status: Patient/guardian denies using tobacco, Patient/guardian denies using alcohol. - Ebola Screening: : Patient negative for fever greater than or equal to 101.5 degrees Fahrenheit, and additional compatible Ebola Virus Disease symptoms Patient denies exposure to infectious person Patient denies travel to an Ebola-affected area in the 21 days before illness onset. ROS: 19:06 Constitutional: Negative for fever, chills, and weight loss, Eyes: Negative for injury, kdr pain, redness, and discharge, Neck: Negative for injury, pain, and swelling, Respiratory: Negative for shortness of breath, cough, wheezing, and pleuritic chest pain, Abdomen/GI: Negative for abdominal pain, nausea, vomiting, diarrhea, and constipation, Back: Negative for injury and pain, : Negative for injury, bleeding, discharge, and swelling, MS/Extremity: Negative for injury and deformity, Skin: Negative for injury, rash, and discoloration, Psych: Negative for depression, anxiety, suicide ideation, homicidal ideation, and hallucinations, Allergy/Immunology: Negative for hives, rash, and allergies, Endocrine: Negative for neck swelling, polydipsia, polyuria, polyphagia, and marked weight changes, Hematologic/Lymphatic: Negative for swollen nodes, abnormal bleeding, and unusual bruising. 19:06 Cardiovascular: Positive for chest pain, Negative for edema, orthopnea, palpitations, paroxysmal nocturnal dyspnea, acute changes. 19:06 Neuro: Positive for Left facial numbness. Exam: 19:06 Constitutional: This is a well developed, well nourished patient who is awake, alert, kdr and in no acute distress. Head/Face: Normocephalic, atraumatic. Eyes: Pupils equal round and reactive to light, extra-ocular motions intact. Lids and lashes normal. Conjunctiva and sclera are non-icteric and not injected. Cornea within normal limits. Periorbital areas with no swelling, redness, or edema. Neck: Trachea midline, no thyromegaly or masses palpated, and no cervical lymphadenopathy. Supple, full range of motion without nuchal rigidity, or vertebral point tenderness. No Meningismus. Chest/axilla: Normal chest wall appearance and motion. Nontender with no deformity. No lesions are appreciated. Cardiovascular: Regular rate and rhythm with a normal S1 and S2. No gallops, murmurs, or rubs. Normal PMI, no JVD. No pulse deficits. Respiratory: Lungs have equal breath sounds bilaterally, clear to auscultation and percussion. No rales, rhonchi or wheezes noted. No increased work of breathing, no retractions or nasal flaring. Abdomen/GI: Soft, non-tender, with normal bowel sounds. No distension or tympany. No guarding or rebound. No evidence of tenderness throughout. Back: No spinal tenderness. No costovertebral tenderness. Full range of motion. Skin: Warm, dry with normal turgor. Normal color with no rashes, no lesions, and no evidence of cellulitis. MS/ Extremity: Pulses equal, no cyanosis. Neurovascular intact. Full, normal range of motion. Neuro: Awake and alert, GCS 15, oriented to person, place, time, and situation. Cranial nerves II-XII grossly intact. Motor strength 5/5 in all extremities. Sensory grossly intact. Cerebellar exam normal. Normal gait. Psych: Awake, alert, with orientation to person, place and time. Behavior, mood, and affect are within normal limits. Vital Signs: 16:40 BP 156 / 81; Pulse 63; Resp 18; Temp 98.1(TE); Pulse Ox 98% on R/A; Weight 99.79 kg; hj Height 5 ft. 4 in. (162.56 cm); Pain 9/10; 17:30 BP 152 / 78; Pulse 65; Resp 18; Pulse Ox 99% on R/A; hj 19:30 BP 138 / 81; Pulse 67; Resp 20 S; Pulse Ox 99% on R/A; cc3 20:00 BP 135 / 77; Pulse 69; Resp 18 S; Pulse Ox 98% on R/A; cc3 16:40 Body Mass Index 37.76 (99.79 kg, 162.56 cm) MDM: 19:06 Data reviewed: vital signs, nurses notes, lab test result(s), radiologic studies. kdr Counseling: I had a detailed discussion with the patient and/or guardian regarding: the historical points, exam findings, and any diagnostic results supporting the discharge/admit diagnosis, lab results, radiology results, the need for outpatient follow up. 19:12 Patient medically screened. kdr 09/14 17:06 Order name: CBC with Diff; Complete Time: 18:44 kdr 09/14 17:06 Order name: Chem 7; Complete Time: 18:44 kdr 09/14 17:38 Order name: CBC Smear Scan; Complete Time: 18:44 EDMS 09/14 17:43 Order name: Brain W/Wo Cont; Complete Time: 18:59 EDMS 09/14 18:52 Order name: Troponin (emerg Dept Use Only) kdr 09/14 17:52 Order name: EKG Electrocardiogram; Complete Time: 17:53 EDMS Administered Medications: 17:54 Drug: Ativan 1 mg Route: IVP; Site: left antecubital; ss 18:15 Follow up: Response: Anxiety unchanged hj 18:15 Drug: Ativan 1 mg Route: IVP; Site: left forearm; hj 18:15 Follow up: Response: No adverse reaction; Anxiety decreased hj Disposition: 09/14/18 19:12 Discharged to Home. Impression: Chest pain, unspecified - chronic and recurrent, Facial paresthesia - recurrent. - Condition is Stable. - Discharge Instructions: Nonspecific Chest Pain, [id number], Paresthesia, [id number]. - Medication Reconciliation Form, Thank You Letter form. - Follow up: Lele Rahman DO; When: 2 - 3 days; Reason: If symptoms return, Further diagnostic work-up, Recheck today's complaints, Continuance of care, Re-evaluation by your physician. - Problem is an acute exacerbation. - Symptoms have improved. Signatures: Dispatcher [employer] EDTN Joey Jung MD MD kdr Smirch, Shelby, RN RN Reno Manriquez PA PA [id number] Jeremy Patel RN RN Diane Carlisle cc3 Corrections: (The following items were deleted from the chart) 17:43 17:06 Brain With Cont+MRI.RAD.BRZ ordered. [facility] 20:23 19:12 09/14/2018 19:12 Discharged to Home. Impression: Chest pain, unspecified - cc3 chronic and recurrent; Facial paresthesia - recurrent. Condition is Stable. Forms are Medication Reconciliation Form, Thank You Letter, Antibiotic Education, Prescription Opioid Use. Follow up: Lele Rahman; When: 2 - 3 days; Reason: If symptoms return, Further diagnostic work-up, Recheck today's complaints, Continuance of care, Re-evaluation by your physician. Problem is an acute exacerbation. Symptoms have improved. kdr
--- NOTE | 2018-09-14 19:13 | ER ---
Nurse's Notes [facility] Name: Marjan Fleming Age: 63 yrs Sex: Female : 1955 Arrival Date: 09/14/2018 Time: 16:26 Bed 19 Private MD: Lele Rahman H Diagnosis: Chest pain, unspecified-chronic and recurrent;Facial paresthesia - recurrent Presentation: 09/14 16:32 Presenting complaint: Patient states: this morning i woke up with chest pain about hj 9/10; i took Nexium thought it was a heartburn, but it didn't go away; i just rested, now this afternoon around 3 pm, the left side of my face started getting numb, part of my L eye, L face, L lip area; denies weakness, denies drift; able to ambulate with stability;. Transition of care: patient was not received from another setting of care. Onset of symptoms was September 14, 2018. Risk Assessment: Do you want to hurt yourself or someone else? Patient reports no desire to harm self or others. Initial Sepsis Screen: Does the patient meet any 2 criteria? No. Patient's initial sepsis screen is negative. Does the patient have a suspected source of infection? No. Patient's initial sepsis screen is negative. Care prior to arrival: None. 16:32 Method Of Arrival: Ambulatory 16:32 Acuity: BLAYNE 3 hj Triage Assessment: 16:39 General: Appears in no apparent distress. uncomfortable, Behavior is calm, cooperative, hj appropriate for age. Pain: Complains of pain in chest. Cardiovascular: Reports chest pain. Historical: - Allergies: 16:38 Bactrim DS; hj 16:38 Codeine; hj 16:38 metoclopramide HCl; hj 16:38 Stadol; hj - Home Meds: 16:42 Albuterol Inhl [Active]; Descovy 200-25 mg Oral tab 1 tab once daily [Active]; hj Hydralazine Oral [Active]; lisinopril Oral [Active]; Lorazepam Oral [Active]; Metoprolol Tartrate Oral [Active]; Norvasc Oral [Active]; raltegravir Oral [Active]; Trimethoprim-Sulfamethoxazole Oral [Active]; - PMHx: 16:38 Anxiety; Atrial Fib; Bipolar disorder; Chronic pain; COPD; esophageal varices; hj Hepatitis; HIV; Hypertension; Migraines; Panic Attacks; - PSHx: 16:38 Unable to obtain; hj - Immunization history:: Adult Immunizations unknown. - Social history:: Smoking status: Patient/guardian denies using tobacco, Patient/guardian denies using alcohol. - Ebola Screening: : Patient negative for fever greater than or equal to 101.5 degrees Fahrenheit, and additional compatible Ebola Virus Disease symptoms Patient denies exposure to infectious person Patient denies travel to an Ebola-affected area in the 21 days before illness onset. Screenin:38 Abuse screen: Denies threats or abuse. Denies injuries from another. Nutritional hj screening: No deficits noted. Tuberculosis screening: No symptoms or risk factors identified. Fall Risk None identified. Assessment: 16:40 Pain: Pain does not radiate. Pain began suddenly. hj 16:40 General: Appears in no apparent distress. uncomfortable, Behavior is cooperative, hj appropriate for age, anxious, crying. Neuro: Level of Consciousness is awake, alert, obeys commands, Oriented to person, place, time, situation, Appropriate for age. Cardiovascular: Capillary refill < 3 seconds Patient's skin is warm and dry. Respiratory: Airway is patent Respiratory effort is even, unlabored, Respiratory pattern is regular, agonal. GI: No signs and/or symptoms were reported involving the gastrointestinal system. : No signs and/or symptoms were reported regarding the genitourinary system. EENT: No signs and/or symptoms were reported regarding the EENT system. Derm: No signs and/or symptoms reported regarding the dermatologic system. Musculoskeletal: No signs and/or symptoms reported regarding the musculoskeletal system. 17:30 Reassessment: Patient and/or family updated on plan of care and expected duration. Pain hj level reassessed. Patient is alert, oriented x 3, equal unlabored respirations, skin warm/dry/pink. awaiting results and POC;. 17:45 Reassessment: wheeled to MRI; pt got anxious at MRI table; ativan given per MD order;. hj 18:57 Reassessment: still in MRI;. hj 19:05 Reassessment: Patient appears in no apparent distress at this time. Patient and/or cc3 family updated on plan of care and expected duration. Pain level reassessed. Patient is alert, oriented x 3, equal unlabored respirations, skin warm/dry/pink. Received this female patient from morning shift ASHLEY Luna as a case of unspecified chest pain but now patient doesn't complain of pain. With 2 IV cannulae gauge 24 on bilateral forearms both saline locked. Snacks given to patient. Patient denies pain at this time. 19:12 Reassessment: Patient appears in no apparent distress at this time. Patient and/or cc3 family updated on plan of care and expected duration. Pain level reassessed. Patient is alert, oriented x 3, equal unlabored respirations, skin warm/dry/pink. Patient was ordered for discharge home but ALEJO Manriquez said to wait for the result of Troponin before sending the patient home. 20:10 Reassessment: Patient appears in no apparent distress at this time. Patient and/or cc3 family updated on plan of care and expected duration. Pain level reassessed. Patient is alert, oriented x 3, equal unlabored respirations, skin warm/dry/pink. Troponin result came back negative, ALEJO Manriquez informed and said patient can be discharged home now. Two IV cannulas removed on each forearms and patient left ER vitally stable and ambulatory and said her is right outside the lobby waiting for her. Patient denies pain at this time. Patient states feeling better. Patient states symptoms have improved. Vital Signs: 16:40 BP 156 / 81; Pulse 63; Resp 18; Temp 98.1(TE); Pulse Ox 98% on R/A; Weight 99.79 kg; Height 5 ft. 4 in. (162.56 cm); Pain 9/10; 17:30 BP 152 / 78; Pulse 65; Resp 18; Pulse Ox 99% on R/A; hj 19:30 BP 138 / 81; Pulse 67; Resp 20 S; Pulse Ox 99% on R/A; cc3 20:00 BP 135 / 77; Pulse 69; Resp 18 S; Pulse Ox 98% on R/A; cc3 16:40 Body Mass Index 37.76 (99.79 kg, 162.56 cm) ED Course: 16:26 Patient arrived in ED. as 16:26 Lele Rahman DO is Private Physician. as 16:32 Jeremy Patel, ASHLEY is Primary Nurse. hj 16:35 Triage completed. hj 16:39 Arm band placed on right wrist. hj 16:39 Patient has correct armband on for positive identification. Placed in gown. Bed in low hj position. Call light in reach. Side rails up X 1. air sampling and monitoring on. Pulse ox on. NIBP on. 16:39 EKG done, by technical training manager. reviewed by Joey Jung MD. sm3 16:40 Patient maintains SpO2 saturation greater than 95% on room air. hj 17:05 Joey Jung MD is Attending Physician. kdr 17:28 Initial lab(s) drawn, by tn, sent to lab. Inserted saline lock: 24 gauge in left hj forearm, using aseptic technique. Blood collected. 17:44 Patient moved to MRI via wheelchair. em2 18:44 Brain W/Wo Cont In Process Unspecified. EDMS 19:11 Lele Rahman DO is Referral Physician. kdr 20:10 No provider procedures requiring assistance completed. IV discontinued, intact, cc3 bleeding controlled, No redness/swelling at site. Pressure dressing applied. Administered Medications: 17:54 Drug: Ativan 1 mg Route: IVP; Site: left antecubital; ss 18:15 Follow up: Response: Anxiety unchanged hj 18:15 Drug: Ativan 1 mg Route: IVP; Site: left forearm; hj 18:15 Follow up: Response: No adverse reaction; Anxiety decreased hj Outcome: 19:12 Discharge ordered by MD. kdr 20:10 Discharged to home ambulatory. cc3 20:10 Condition: stable 20:10 Discharge instructions given to patient, Instructed on discharge instructions, follow up and referral plans. Demonstrated understanding of instructions, follow-up care. 20:23 Patient left the ED. cc3 Signatures: Dispatcher [employer] EDMS Joey Jnug MD MD kdr Radha Simons Shelby, ASHLEY RN Dm Rolon em2 Jeremy Patel, ASHLEY RN Gracie Rolon 3 Diane Ogden cc3 Corrections: (The following items were deleted from the chart) 17:30 17:28 Inserted saline lock: 22 gauge in left forearm, using aseptic technique. Blood hj collected. hj 22:04 19:05 Reassessment: Patient appears in no apparent distress at this time. Patient cc3 and/or family updated on plan of care and expected duration. Pain level reassessed. Patient is alert, oriented x 3, equal unlabored respirations, skin warm/dry/pink. Received this female patient from morning shift ASHLEY Luna as a case of unspecified chest pain but now patient doesn't complain of pain. With 2 IV cannulae gauge 24 on bilateral forearms both saline locked. Snacks given to patient. cc3 22:07 20:10 Reassessment: Patient appears in no apparent distress at this time. Patient cc3 and/or family updated on plan of care and expected duration. Pain level reassessed. Patient is alert, oriented x 3, equal unlabored respirations, skin warm/dry/pink. Troponin result came back negative, ALEJO Manriquez informed and said patient can be discharged home now. Two IV cannulas removed on each forearms and patient left ER vitally stable and ambulatory and said her is right outside the lobby waiting for her. Patient denies pain at this time. cc3
[2018-09-14 20:47] VITALS: TEMP 98.1
[2018-09-14 20:48] VITALS: BP 152/78; O2SAT 99
--- NOTE | 2018-09-15 06:43 | EKG ---
Test Date: 2018-09-14 Test Time: 16:33:30 Drive Man: FABIOLA MEASUREMENT RESULTS: Intervals: Rate: 65 VT: 136 QRSD: 80 QT: 434 QTc: 451 [place]: P: -2 VT: 136 QRS: 19 T: 27 INTERPRETIVE STATEMENTS: Normal sinus rhythm Normal ECG Compared to ECG 09/09/2018 18:18:26 Left ventricular hypertrophy no longer present Electronically Signed On 09-15-18 06:42:14 CDT by Per Crane
== END 2018-09-14 20:23 | disposition home or self-care (01) ==
LOC: ER 16:23
DX: R07.9 Chest pain, unspecified (principal); R20.2 Paresthesia of skin; F41.9 Anxiety disorder, unspecified; I48.91 Unspecified atrial fibrillation; F31.9 Bipolar disorder, unspecified; J44.9 Chronic obstructive pulmonary disease, unspecified; I10 Essential (primary) hypertension; Z88.1 Allergy status to other antibiotic agents; Z88.5 Allergy status to narcotic agent
CPT/HCPCS: 93005; 85025; 80048; 36415; 84484; 70553; 99285; A9577

== ENCOUNTER 2018-10-22 10:55 | Emergency (ER) | payer OTHER ==
--- OUTSIDE RECORDS SUMMARY | 2018-10-22 10:58 | XMS REPORT | Clinical Summary ---
:1955 Author Organization [facility] Address [address] [place] [address] Care Team Providers Name Role Phone Asked, [...] Health Maintenance Due Date Last Done Comments BREAST CANCER SCREENING 01/22/2006 COLON CANCER SCREENING 01/22/2006 SHINGLES VACCINES (#1) 01/22/2006 INFLUENZA VACCINE 12/21/2018 Implants Implanted Type Area Collator Device Shelf Model / Identifier Expiration Serial / Date Lot Versa-Dial/Comp Ti Std Taper Used W/25mm Glenoid Basplate - [id number] N/ A: N/A [employer] 01/22/2026 [id number] / Implanted: Qty: 1 on 10/19/2016 by Austin Bowles MD IMPLANT / DEVICES [id number] 41mm Comprehensive Reverse Shoulder Glenosphere Ba - [id number] N/A: N/A [employer] 11/21/2023 [id number] / Implanted: Qty: 1 on 10/19/2016 by Austin Bowles MD IMPLANT / DEVICES [id number] Arcom Xl 44-41 Std +3 Humeral Brg - [id number] Left: [employer] 07/20 XL [id number] / Implanted: Qty: 1 on 10/19/2016 by Austin Bowles MD IMPLANT Shoulder / DEVICES [id number] Humeral Tray With Locking Ring +5 Left: [employer] 03/31/2026 [id number] / Implanted: Qty: 1 on 10/19/2016 by Austin Bowles MD Shoulder / [id number] Results Not on fileafter 10/21/2017 Advance Directives Patient has advance care planning documents on file. For more information, please contact:Derrick [id number] [place] [address]
--- OUTSIDE RECORDS SUMMARY | 2018-10-22 10:58 | XMS REPORT ---
:1955 [facility] Address [address] [place] [address] Dr. Obrien[address] [place] [id number] Care Team Providers Name Role Phone Unavailable Unavailable Unavailable Problems This patient has no known problems. Allergies, Adverse Reactions, Alerts This patient has no known allergies or adverse reactions. Medications This patient has no known medications.
--- NOTE | 2018-10-22 12:00 | RAD REPORT ---
EXAM DESCRIPTION: CT - Head Brain Wo Cont - 10/22/2018 11:42 am CLINICAL HISTORY: Dizziness COMPARISON: May 2018 TECHNIQUE: Computed axial tomography of the head was obtained. IV contrast was not requested. All CT scans are performed using dose optimization technique as appropriate and may include automated exposure control or mA/KV adjustment according to patient size. FINDINGS: An intracranial bleed is not seen . The ventricles are normal in caliber. No extra-axial fluid collection is noted. Mild to moderate low-density areas within periventricular, deep and subcortical white matter likely represent ischemic changes secondary to small vessel disease . Fluid within the sinuses/ mastoids is not seen. IMPRESSION: No acute intracranial abnormality is seen. If patient's symptoms persist MRI of the bra in would be recommended.
[2018-10-22 12:35] LABS: Absolute Lymphocytes (CBC) 1.3 K/uL (0.7-4.9); Absolute Monocytes 0.5 K/uL (0.1-1.3); Absolute Neutrophil 3.7 K/uL (1.8-8.0); Eosinophils % 1.2 % (0-4.4); Hematocrit 34.2 % (36.0-45.0); Lymphocytes % 23.9 % (15.3-44.8); Monocytes % 8.4 % (3.3-12.3); Protime INR 0.96; RBC Red Blood Cell Count 5.06 M/uL (3.86-4.86)
[2018-10-22 12:50] LABS: ALT/SGPT 31 U/L (12-78); AST/SGOT 37 U/L (15-37); Albumin 3.6 g/dL (3.4-5.0); Alkaline Phosphatase 92 U/L (45-117); BUN Blood Urea Nitrogen 23 mg/dL (7-18); Bicarbonate 28 mmol/L (21-32); Bilirubin Direct < 0.1 mg/dL (0-0.2); Bilirubin Total 0.3 mg/dL (0.2-1.0); Glucose Level 95 mg/dL (74-106); Magnesium 2.4 mg/dL (1.8-2.4); NT PRO-BNP 342 pg/mL (<125); Potassium 4.1 mmol/L (3.5-5.1); Protein, Total 8.1 g/dL (6.4-8.2); Sodium Level 140 mmol/L (136-145); Troponin (Emerg Dept Use Only) < 0.02 ng/mL (0.0-0.045)
[2018-10-22 12:53] LABS: Blood Morphology Comment NOT SEEN (NOT SEEN); Platelet Estimate ADEQ; Urine White Blood Cell Casts OK
[2018-10-22] MEDS ORDERED: LORazepam 2 MG/ML VIAL ONE (13:28)
--- NOTE | 2018-10-22 13:43 | RAD REPORT ---
EXAM DESCRIPTION: Patrick Single View10/22/2018 1:04 pm CLINICAL HISTORY: Chest pain COMPARISON: August 2018 FINDINGS: The lungs appear clear of acute infiltrate. The heart is mildly enlarged IMPRESSION: No acute abnormalities displayed
--- NOTE | 2018-10-22 14:43 | P.CNS ---
Date of Consult: 10/22/18 Reason for Consult: Dizziness Chief Complaint: Dizziness History of Present Illness: Consultation requested by ER for patient presenting symptoms are dizziness chest pain. Patient is a 63-year-old female with HIV hepatitis C hypertension generalize anxiety disorder who recently had her sertraline (200mg) discontinued and was switched to 20 mg of Prozac and her Ativan was stopped as well by her new psychiatrist at [facility]. Patient reports dizziness for the past 3 days. Associated with chest pain. Patient's pain is ambiguous. She states it is a "sharp dull" pain. Patient denies any associated nausea vomiting diaphoresis. Does report some shortness of breath. Patient denies any changes in vision or vertigo sensation. Patient does have hiatal hernia with acid reflux symptoms and has not been taking her Nexium instead has been on H2 blockers. In the ER her workup was negative. Troponin negative. EKG did not show any abnormalities. Patient at this time does not describe any chest pain. Patient was given 1 mg Ativan IV which she stated did not "touch her " I suspect that patient's symptoms are stemming from her recently changed psychiatric medications as well as her anxiety. Patient is low risk with HEART score of 2. Head CT scan was negative for any changes and patient had a recent MRI of the brain and August which was normal. I spoke with job press feeder Dr. Grissom who recommends outpatient followup in his office. Patient had a recent stress test in March which was negative along with echocardiogram which was normal. Patient's last heart catheterization in 2015 showed normal coronary arteries. Patients pain is likely related to her the gastroesophageal reflux disease and hiatal hernia versus anxiety. Patient to follow up with cardiology and psychiatry as outpatient Allergies fentanyl Allergy (Severe, Verified 06/30/17 03:39) Hives butorphanol tartrate [From Stadol] Allergy (Verified 06/30/17 03:39) confusion metoclopramide HCl [From Reglan] Allergy (Verified 06/30/17 03:39) Shortness of breath sulfamethoxazole [From Bactrim] Allergy (Verified 06/30/17 03:39) Hives/Rash trimethoprim [From Bactrim] Allergy (Verified 06/30/17 03:39) Hives/Rash codeine Adverse Reaction (Mild, Verified 03/12/18 17:38) Nausea/Vomiting Bactrim DS Allergy (Uncoded 07/23/17 16:47) Unknown Home medications list reviewed: Yes Home Medications: Raltegravir Potassium [Isentress] 400 mg PO BID 02/28/12 Lorazepam [Ativan] 2 mg PO BID* PRN 04/02/12 Sertraline [Zoloft*] 200 mg PO DAILY 09/15/12 Amlodipine [Norvasc*] 10 mg PO DAILY 01/04/13 Tiotropium [Spiriva Handihaler*] 18 mcg IH DAILY #1 cap.w.dev 10/24/14 Esomeprazole Mag Trihydrate [Nexium] 40 mg PO DAILY #30 capsule. 02/27/16 Emtricitabine/Tenofov Alafenam [Descovy 200-25 mg Tablet] 1 tab PO BEDTIME 10/05 Albuterol Neb [Proventil 0.083% Neb Soln] 2.5 mg IH BID 03/12/18 predniSONE [Prednisone*] 20 mg PO DAILY 03/12/18 Albuterol Sulfate [Ventolin Hfa] 2 puff IH TID PRN #90 hfa.aer.ad 03/13/18 Budesonide/Formoterol Fumarate [Symbicort 160-4.5 Mcg Inhaler] 2 puff IH BID #1 hfa.aer.ad 03/13/18 Hydralazine HCl 50 mg PO BID #60 tablet 03/13/18 Ipratropium Neb [Atrovent*] 1 inh IH BIDP PRN 04/02/18 Aspirin [Aspirin EC 81 MG] 162 mg PO DAILY #30 tablet. 06/18/18 Atorvastatin Calcium [Lipitor] 40 mg PO BEDTIME #30 tab 06/18/18 Ferrous Sulfate 325 mg PO BID #60 tablet 06/18/18 - Past Medical/Surgical History Diabetic: No -: HIV diag ~ [address] Yohan Cardenas in [place] -: . -: Bipolar disorder Dr Krause in [place] -: Hypertension -: COPD -: Tobacco abuse -: Alcohol abuse -: Anemia likely of chronic disease -: constrictor of urethia -: Appendectomy -: Cholecystectomy -: left shoulder rotated cuff -: Right foot repair -: Right shoulder replacement -: left shoulder rotated cuff Psychosocial/ Personal History: She lives at home. She is not . - Family History Father Medical History: Kidney disease Mother Medical History: Other (see notes) Notes: Epilepsy, chronic pain - Social History Smoking Status: Current every day smoker Alcohol use: No CD- Drugs: No Caffeine use: Yes Place of Residence: Home Review of Systems 10-point ROS is otherwise unremarkable Physical Examination General: Alert, In no apparent distress, Oriented x3, Obese HEENT: Atraumatic, PERRLA, Mucous membr. moist/pink, EOMI, Sclerae nonicteric Neck: Supple, 2+ carotid pulse no bruit, No LAD, Without JVD or thyroid abnormality Respiratory: Clear to auscultation bilaterally, Normal air movement Cardiovascular: No edema, Normal pulses, Regular rate/rhythm, Normal S1 S2 Gastrointestinal: Normal bowel sounds, Soft and benign, Non-distended, No tenderness Musculoskeletal: No tenderness Integumentary: No rashes Neurological: Normal gait, Normal speech, Normal strength at 5/5 x4 extr, Normal tone, Normal affect Laboratory Data (last 24 hrs) 10/22/18 12:10: PT 11.3, INR 0.96 10/22/18 12:10: WBC 5.6, Hgb 10.5 L, Hct 34.2 L, Plt Count 277 10/22/18 12:10: Sodium 140, Potassium 4.1, BUN 23 H, Creatinine 0.92, Glucose 95 , Magnesium 2.4, Total Bilirubin 0.3, AST 37, ALT 31, Alkaline Phosphatase 92 Imagings Data: Head CT IMPRESSION: No acute intracranial abnormality is seen. If patient's symptoms persist MRI of the brain would be recommended. Conclusions/Impression: Dizziness Atypical chest pain Generalize anxiety disorder GERD HIV Hepatitis-C Hypertension
--- NOTE | 2018-10-22 14:53 | ER ---
Nurse's Notes [facility] Name: Marjan Fleming Age: 63 yrs Sex: Female : 1955 Arrival Date: 10/22/2018 Time: 11:00 Bed 20 Private MD: Diagnosis: Chest pain, unspecified Presentation: 10/22 11:09 Presenting complaint: Patient states: LEFT SIDED CHEST TIGHTNESS SINCE Y/D, AFTER bp CHANGING PROZAC DOSAGE. Transition of care: patient was not received from another setting of care. Onset of symptoms was October 21, 2018. Risk Assessment: Do you want to hurt yourself or someone else? Patient reports no desire to harm self or others. Initial Sepsis Screen: Does the patient meet any 2 criteria? No. Patient's initial sepsis screen is negative. Does the patient have a suspected source of infection? No. Patient's initial sepsis screen is negative. Care prior to arrival: None. 11:09 Method Of Arrival: Ambulatory bp 11:09 Acuity: BLAYNE 2 bp Historical: - Allergies: 11:10 Bactrim DS; bp 11:10 Codeine; bp 11:10 metoclopramide HCl; bp 11:10 Stadol; bp - PMHx: 11:10 Anxiety; Atrial Fib; Bipolar disorder; Chronic pain; COPD; esophageal varices; bp Hepatitis; HIV; Hypertension; Migraines; Panic Attacks; - Immunization history:: Adult Immunizations up to date. - Social history:: Smoking status: Patient uses tobacco products, unknown amount. - Ebola Screening: : No symptoms or risks identified at this time. Screenin:31 Abuse screen: Denies threats or abuse. Nutritional screening: No deficits noted. em Tuberculosis screening: No symptoms or risk factors identified. Fall Risk None identified. Assessment: 11:30 General: Appears in no apparent distress. comfortable, Behavior is calm, cooperative, em Denies fever. Pain: Complains of pain in chest Pain does not radiate. Pain currently is 8 out of 10 on a pain scale. Quality of pain is described as pressure, squeezing, Pain began 2-3 days ago. Neuro: Level of Consciousness is awake, alert, obeys commands, Oriented to person, place, time, situation, Appropriate for age Rehabilitation Clerk are equal bilaterally Moves all extremities. Gait is steady, Speech is normal, Facial symmetry appears normal, paresthesias in right foot and left foot Reports dizziness, since 2-3 days ago Denies weakness blurred vision. Cardiovascular: Capillary refill < 3 seconds Patient's skin is warm and dry. Rhythm is sinus rhythm. Respiratory: Airway is patent Respiratory effort is even, unlabored, Respiratory pattern is regular, symmetrical, Breath sounds are clear bilaterally. GI: Reports nausea. Derm: Skin is intact, is healthy with good turgor, Skin is pink, warm \T\ dry. Musculoskeletal: Capillary refill < 3 seconds, Range of motion: intact in all extremities. 12:30 Reassessment: Patient appears in no apparent distress at this time. Patient and/or em family updated on plan of care and expected duration. Pain level reassessed. Patient is alert, oriented x 3, equal unlabored respirations, skin warm/dry/pink. 13:10 Reassessment: request something for anxiety, reports taking lorazepam 2 mg daily, em provider notified, new medication orders received. 13:58 Reassessment: Patient appears in no apparent distress at this time. Patient and/or em family updated on plan of care and expected duration. Pain level reassessed. Patient is alert, oriented x 3, equal unlabored respirations, skin warm/dry/pink. pending admission reports anxiety is only slightly better, provider notified. 14:20 Reassessment: Dr. Zamora at bedside, received verbal order for Ativan 1 mg IV x 1 now. em 15:11 Reassessment: Patient appears in no apparent distress at this time. Patient and/or em family updated on plan of care and expected duration. Pain level reassessed. Patient is alert, oriented x 3, equal unlabored respirations, skin warm/dry/pink. received instruction from provider to D/C pt after consultation with millstone cleaner Patient states feeling better. Vital Signs: 11:10 BP 161 / 94; Pulse 73; Resp 20; Temp 98; Pulse Ox 100% ; Weight 90.72 kg; Height 5 ft. bp 4 in. (162.56 cm); 12:00 BP 164 / 92; Pulse 58; Resp 22; Temp 98.5(O); Pulse Ox 100% ; mh5 13:01 BP 142 / 80; Pulse 62; Resp 18; Temp 98.2(O); Pulse Ox 100% on R/A; mh5 13:47 BP 143 / 71; Pulse 62; Resp 14; Temp 97.9(O); Pulse Ox 97% on R/A; mh5 11:10 Body Mass Index 34.33 (90.72 kg, 162.56 cm) bp ED Course: 11:00 Patient arrived in ED. tw3 11:10 Triage completed. bp 11:10 Arm band placed on. bp 11:17 Angelique Prado FNP is PHCP. nh 11:18 Justus Kolb MD is Attending Physician. nh 11:26 EKG done, by ED staff, reviewed by Justus Kolb MD. mh5 11:27 Patient has correct armband on for positive identification. Placed in gown. Bed in low mh5 position. Call light in reach. Side rails up X 1. Warm blanket given. pvc monitor on. Pulse ox on. NIBP on. 11:31 Venu Ortega LVN is Primary Nurse. em 11:31 Patient maintains SpO2 saturation greater than 95% on room air. em 11:42 CT completed. Patient tolerated procedure well. Patient moved back from CT. Patient bq moved to radiology. 11:45 CT Head Brain wo Cont In Process Unspecified. EDMS 12:05 Initial lab(s) drawn, by me, sent to lab. Inserted saline lock: 24 gauge in left hand, em using aseptic technique. Blood collected. 13:05 XRAY Chest (1 view) In Process Unspecified. EDMS 15:11 No provider procedures requiring assistance completed. IV discontinued, intact, em bleeding controlled, No redness/swelling at site. Pressure dressing applied. Administered Medications: 13:19 Drug: Ativan 1 mg Route: IVP; Site: left hand; ss 14:12 Follow up: Response: No adverse reaction em 14:36 Drug: Ativan 1 mg Route: IVP; Site: left hand; em 15:12 Follow up: Response: No adverse reaction; Anxiety decreased em Outcome: 14:52 Discharge ordered by . nh 15:11 Discharged to home ambulatory. em 15:11 Condition: stable 15:11 Discharge instructions given to patient, Instructed on discharge instructions, follow up and referral plans. Demonstrated understanding of instructions, follow-up care. 15:13 Patient left the ED. em Signatures: Dispatcher [employer] EDMS Angelique Prado FNP PROJECTION ENGINEER nh Esthela Gottlieb bq Venu Ortega, SUPERVISOR CONCRETE PIPE PLANT SUPERVISOR CONCRETE PIPE PLANT em Sandra Cadet, RN RN ss Laura Simons 5 Ang, Tamara 3 Carlos Eduardo Olivera, RN RN bp
--- NOTE | 2018-10-22 14:54 | EDPHYS ---
Physician Documentation [facility] Name: Marjan Fleming Age: 63 yrs Sex: Female : 1955 Arrival Date: 10/22/2018 Time: 11:00 Bed 20 Private MD: SHEELA Physician Justus Kolb HPI: 10/22 14:50 This 63 yrs old Female presents to ER via Ambulatory with complaints of Chest nh Pain, Dizziness. 14:50 Onset: The symptoms/episode began/occurred this morning. Associated signs and symptoms: nh Pertinent positives: dizziness. Modifying factors: The patient symptoms are alleviated by nothing, the patient symptoms are aggravated by nothing. The patient has not experienced similar symptoms in the past. The patient has not recently seen a physician. Historical: - Allergies: 11:10 Bactrim DS; bp 11:10 Codeine; bp 11:10 metoclopramide HCl; bp 11:10 Stadol; bp - PMHx: 11:10 Anxiety; Atrial Fib; Bipolar disorder; Chronic pain; COPD; esophageal varices; bp Hepatitis; HIV; Hypertension; Migraines; Panic Attacks; - Immunization history:: Adult Immunizations up to date. - Social history:: Smoking status: Patient uses tobacco products, unknown amount. - Ebola Screening: : No symptoms or risks identified at this time. ROS: 14:50 Constitutional: Negative for fever, chills, and weight loss, Eyes: Negative for injury, nh pain, redness, and discharge, ENT: Negative for injury, pain, and discharge, Neck: Negative for injury, pain, and swelling, Respiratory: Negative for shortness of breath, cough, wheezing, and pleuritic chest pain, Abdomen/GI: Negative for abdominal pain, nausea, vomiting, diarrhea, and constipation, Back: Negative for injury and pain, : Negative for injury, bleeding, discharge, and swelling, MS/Extremity: Negative for injury and deformity, Skin: Negative for injury, rash, and discoloration, Neuro: Negative for headache, weakness, numbness, tingling, and seizure, Psych: Negative for depression, anxiety, suicide ideation, homicidal ideation, and hallucinations, Allergy/Immunology: Negative for hives, rash, and allergies, Endocrine: Negative for neck swelling, polydipsia, polyuria, polyphagia, and marked weight changes, Hematologic/Lymphatic: Negative for swollen nodes, abnormal bleeding, and unusual bruising. 14:50 Cardiovascular: Positive for chest pain. Exam: 14:50 Constitutional: This is a well developed, well nourished patient who is awake, alert, nh and in no acute distress. Head/Face: Normocephalic, atraumatic. Eyes: Pupils equal round and reactive to light, extra-ocular motions intact. Lids and lashes normal. Conjunctiva and sclera are non-icteric and not injected. Cornea within normal limits. Periorbital areas with no swelling, redness, or edema. ENT: Nares patent. No nasal discharge, no septal abnormalities noted. Tympanic membranes are normal and external auditory canals are clear. Oropharynx with no redness, swelling, or masses, exudates, or evidence of obstruction, uvula midline. Mucous membranes moist. Neck: Trachea midline, no thyromegaly or masses palpated, and no cervical lymphadenopathy. Supple, full range of motion without nuchal rigidity, or vertebral point tenderness. No Meningismus. Chest/axilla: Normal chest wall appearance and motion. Nontender with no deformity. No lesions are appreciated. Cardiovascular: Regular rate and rhythm with a normal S1 and S2. No gallops, murmurs, or rubs. Normal PMI, no JVD. No pulse deficits. Respiratory: Lungs have equal breath sounds bilaterally, clear to auscultation and percussion. No rales, rhonchi or wheezes noted. No increased work of breathing, no retractions or nasal flaring. Abdomen/GI: Soft, non-tender, with normal bowel sounds. No distension or tympany. No guarding or rebound. No evidence of tenderness throughout. Back: No spinal tenderness. No costovertebral tenderness. Full range of motion. Skin: Warm, dry with normal turgor. Normal color with no rashes, no lesions, and no evidence of cellulitis. MS/ Extremity: Pulses equal, no cyanosis. Neurovascular intact. Full, normal range of motion. Neuro: Awake and alert, GCS 15, oriented to person, place, time, and situation. Cranial nerves II-XII grossly intact. Motor strength 5/5 in all extremities. Sensory grossly intact. Cerebellar exam normal. Normal gait. Psych: Awake, alert, with orientation to person, place and time. Behavior, mood, and affect are within normal limits. Vital Signs: 11:10 BP 161 / 94; Pulse 73; Resp 20; Temp 98; Pulse Ox 100% ; Weight 90.72 kg; Height 5 ft. bp 4 in. (162.56 cm); 12:00 BP 164 / 92; Pulse 58; Resp 22; Temp 98.5(O); Pulse Ox 100% ; mh5 13:01 BP 142 / 80; Pulse 62; Resp 18; Temp 98.2(O); Pulse Ox 100% on R/A; mh5 13:47 BP 143 / 71; Pulse 62; Resp 14; Temp 97.9(O); Pulse Ox 97% on R/A; mh5 11:10 Body Mass Index 34.33 (90.72 kg, 162.56 cm) bp MDM: 11:18 Patient medically screened. nh 14:50 Data reviewed: vital signs, nurses notes, I have discussed the patient's nh presentation/case with the attending Emergency Department Physician; and as a result, I will discharge patient. Counseling: I had a detailed discussion with the patient and/or guardian regarding: the historical points, exam findings, and any diagnostic results supporting the discharge/admit diagnosis, lab results, radiology results, the need for outpatient follow up, to return to the emergency department if symptoms worsen or persist or if there are any questions or concerns that arise at home. 10/22 11:31 Order name: Basic Metabolic Panel; Complete Time: 13:08 nj 10/22 11:31 Order name: CBC with Diff; Complete Time: 13:08 nj 10/22 11:31 Order name: LFT's; Complete Time: 13:08 nj 10/22 11:31 Order name: Magnesium; Complete Time: 13:08 nj 10/22 11:31 Order name: NT PRO-BNP; Complete Time: 13:08 nj 10/22 11:31 Order name: PT-INR; Complete Time: 13:08 nj 10/22 11:31 Order name: Troponin (emerg Dept Use Only); Complete Time: 13:08 nj 10/22 11:31 Order name: XRAY Chest (1 view); Complete Time: 13:49 nj 10/22 11:31 Order name: EKG; Complete Time: 11:32 nj 10/22 11:31 Order name: Cardiac monitoring; Complete Time: 11:33 nj 10/22 11:31 Order name: CT Head Brain wo Cont; Complete Time: 12:11 nj 10/22 12:54 Order name: CBC Smear Scan; Complete Time: 13:08 [facility] 10/22 11:31 Order name: EKG - Nurse/Tech; Complete Time: 11:33 nj 10/22 11:31 Order name: IV Saline Lock; Complete Time: 12:16 nj 10/22 11:31 Order name: Labs collected and sent; Complete Time: 11:33 nj 10/22 11:31 Order name: O2 Per Protocol; Complete Time: 11:32 nj 10/22 11:31 Order name: O2 Sat Monitoring; Complete Time: 11:32 nj Administered Medications: 13:19 Drug: Ativan 1 mg Route: IVP; Site: left hand; ss 14:12 Follow up: Response: No adverse reaction em 14:36 Drug: Ativan 1 mg Route: IVP; Site: left hand; em 15:12 Follow up: Response: No adverse reaction; Anxiety decreased em Disposition: 10/23 07:45 Co-signature as Attending Physician, Justus Kolb MD I agree with the assessment and [facility] plan of care. Disposition: 10/22/18 14:52 Discharged to Home. Impression: Chest pain, unspecified. - Condition is Stable. - Discharge Instructions: Nonspecific Chest Pain, Chest Contusion, Adult. - Medication Reconciliation Form, Thank You Letter, Antibiotic Education, Prescription Opioid Use form. - Follow up: Private Physician; When: 2 - 3 days; Reason: Recheck today's complaints. - Problem is new. - Symptoms are unchanged. Signatures: Dispatcher [employer] Justus Long MD MD cha Cronk, Niki, PROFESSIONAL FIGHTER PROFESSIONAL FIGHTER nj Venu Ortega, SECURITY OFFICERS AND GUARDS SECURITY OFFICERS AND GUARDS em Sandra Cadet, ASHLEY RN Carlos Eduardo Springer, RN RN bp Corrections: (The following items were deleted from the chart) 10/22 15:13 14:52 10/22/2018 14:52 Discharged to Home. Impression: Chest pain, unspecified. em Condition is Stable. Forms are Medication Reconciliation Form, Thank You Letter, Antibiotic Education, Prescription Opioid Use. Follow up: Private Physician; When: 2 - 3 days; Reason: Recheck today's complaints. Problem is new. Symptoms are unchanged. nj
[2018-10-22 15:30] VITALS: BP 143/71; TEMP 97.9; O2SAT 97
--- NOTE | 2018-10-23 06:30 | EKG ---
Test Date: 2018-10-22 Test Time: 11:08:17 Metal Checker: BENITO MEASUREMENT RESULTS: Intervals: Rate: 68 TN: 140 QRSD: 80 QT: 410 QTc: 435 [place]: P: 2 TN: 140 QRS: 11 T: 23 INTERPRETIVE STATEMENTS: Normal sinus rhythm Minimal voltage criteria for LVH, may be normal variant Borderline ECG Compared to ECG 09/14/2018 16:33:30 Left ventricular hypertrophy now present Electronically Signed On 10-23-18 06:29:52 CDT by Rich Grissom
== END 2018-10-22 15:13 | disposition home or self-care (01) ==
LOC: ER 10:55
DX: R07.9 Chest pain, unspecified (principal); R42 Dizziness and giddiness; Z88.1 Allergy status to other antibiotic agents; Z88.5 Allergy status to narcotic agent; Z88.8 Allergy status to other drugs, medicaments and biological substances; F41.9 Anxiety disorder, unspecified; I48.91 Unspecified atrial fibrillation; F31.9 Bipolar disorder, unspecified; J44.9 Chronic obstructive pulmonary disease, unspecified; I10 Essential (primary) hypertension; Z72.0 Tobacco use
CPT/HCPCS: 36415; 70450; 71045; 80048; 80076; 83735; 83880; 84484; 85025; 85610; 93005; 96374; 99285

== ENCOUNTER 2019-03-09 06:55 | Emergency (ER) | payer OTHER ==
[2019-03-09] MEDS ORDERED: ALBUTEROL 2.5 MG/3 ML NEB SOL ONE ×2 (07:25→09:09)
[2019-03-09] MEDS ORDERED: predniSONE 20 MG TAB ONE (07:26)
--- NOTE | 2019-03-09 08:04 | RAD REPORT ---
EXAM DESCRIPTION: Patrick Single View03/09/2019 7:27 am CLINICAL HISTORY: Cough COMPARISON: June 2018 FINDINGS: The lungs appear clear of acute infiltrate. The heart is mildly enlarged Moderate hiatal hernia IMPRESSION: No acute abnormalities displayed
[2019-03-09 08:12] LABS: Absolute Lymphocytes (CBC) 1.1 K/uL (0.7-4.9); Basophils % 0.5 % (0-1.3); Hematocrit 36.5 % (36.0-45.0); Lymphocytes % 16.4 % (15.3-44.8); MPV 8.1 fL (7.6-11.3); RBC Red Blood Cell Count 4.74 M/uL (3.86-4.86)
[2019-03-09 08:26] LABS: BUN Blood Urea Nitrogen 19 mg/dL (7-18); Bicarbonate 27 mmol/L (21-32); Glucose Level 161 mg/dL (74-106); NT PRO-BNP 404 pg/mL (<125); Potassium 3.1 mmol/L (3.5-5.1); Sodium Level 142 mmol/L (136-145); Troponin (Emerg Dept Use Only) < 0.02 ng/mL (0.0-0.045)
[2019-03-09] MEDS ORDERED: POTASSIUM 25 MEQ EFFERV TAB ONE (08:51)
--- NOTE | 2019-03-09 08:52 | ER ---
Nurse's Notes [facility] Name: Marjan Fleming Age: 64 yrs Sex: Female : 1955 Arrival Date: 03/09/2019 Time: 06:56 Bed 14 Private MD: Lele Rahman H Diagnosis: Acute bronchitis Presentation: 03/09 07:07 Presenting complaint: Patient states: cough and congestion x 3 days. Denies fever. ss Transition of care: patient was not received from another setting of care. Resp Distress? No respiratory distress is noted at this time. Onset of symptoms was March 06, 2019. Risk Assessment: Do you want to hurt yourself or someone else? Patient reports no desire to harm self or others. Initial Sepsis Screen: Does the patient meet any 2 criteria? No. Patient's initial sepsis screen is negative. Does the patient have a suspected source of infection? Yes: Productive cough/pneumonia. Care prior to arrival: None. 07:07 Method Of Arrival: Ambulatory 07:07 Acuity: BLAYNE 3 ss Historical: - Allergies: 07:08 Bactrim DS; ss 07:08 Codeine; ss 07:08 metoclopramide HCl; ss 07:08 Stadol; ss - PMHx: 07:08 Anxiety; Atrial Fib; COPD; Chronic pain; Bipolar disorder; esophageal varices; ss Hepatitis; HIV; Hypertension; Migraines; Panic Attacks; - Immunization history:: Adult Immunizations up to date. - Social history:: Smoking status: Patient uses tobacco products, 3-4 cigarettes/ day. - Ebola Screening: : Patient denies exposure to infectious person Patient denies travel to an Ebola-affected area in the 21 days before illness onset. Screenin:29 Abuse screen: Denies threats or abuse. Nutritional screening: No deficits noted. em Tuberculosis screening: No symptoms or risk factors identified. Fall Risk None identified. Assessment: 07:25 General: Appears in no apparent distress. comfortable, Behavior is calm, cooperative, em Reports chills for 2-3 days. Pain: Complains of pain in chest Pain currently is 9 out of 10 on a pain scale. Neuro: Level of Consciousness is awake, alert, obeys commands, Oriented to person, place, time, situation, Appropriate for age. Cardiovascular: Reports chest pain, shortness of breath, Heart tones S1 S2 present Capillary refill < 3 seconds Patient's skin is warm and dry. Rhythm is regular. Respiratory: Reports shortness of breath on exertion cough that is productive, pain with cough Airway is patent Respiratory effort is even, unlabored, Respiratory pattern is regular, symmetrical, Breath sounds with wheezes bilaterally. Derm: Skin is intact, is thin, Skin is pink, warm \T\ dry. Musculoskeletal: Capillary refill < 3 seconds, Range of motion: intact in all extremities. 07:30 Reassessment: The previous assessment is accurate, call light remains within reach. ss Vital Signs: 07:06 BP 173 / 102; Pulse 70; Resp 17; Temp 97.3(TE); Pulse Ox 99% on R/A; Weight 93.44 kg; ss Height 5 ft. 4 in. (162.56 cm); Pain 9/10; 08:04 BP 143 / 90; Pulse 68; Resp 18; Pulse Ox 97% on R/A; em 07:06 Body Mass Index 35.36 (93.44 kg, 162.56 cm) ED Course: 06:56 Patient arrived in ED. as 06:57 Lele Rahman DO is Private Physician. as 07:05 Albert Hudson MD is Attending Physician. gs 07:06 Venu Ortega LVN is Primary Nurse. em 07:06 Arm band placed on right wrist. ss 07:07 Triage completed. ss 07:24 XRAY Chest (1 view) In Process Unspecified. EDMS 07:29 Patient has correct armband on for positive identification. Placed in gown. Bed in low em position. Call light in reach. ekg monitor tech on. Pulse ox on. NIBP on. 07:55 Initial lab(s) drawn, by me, sent to lab. em 09:49 No provider procedures requiring assistance completed. em 09:58 Patient did not have IV access during this emergency room visit. em Administered Medications: 07:36 Drug: Albuterol 2.5 mg Route: Inhalation; em 08:00 Follow up: Response: No adverse reaction; Marked relief of symptoms em 07:36 Drug: predniSONE 20 mg Route: PO; em 08:11 Follow up: Response: No adverse reaction em 08:56 Drug: Potassium Effervescent Tablet 50 mEq Route: PO; em 09:12 Follow up: Response: No adverse reaction em 09:12 Drug: Albuterol 2.5 mg Route: Inhalation; em 09:48 Follow up: Response: No adverse reaction; Marked relief of symptoms em 09:12 Drug: AtroVENT Aerosol 0.5 mg Route: Inhalation; em 09:48 Follow up: Response: No adverse reaction; Marked relief of symptoms em Outcome: 08:51 Discharge ordered by . gs 09:31 Discharge ordered by . gs 09:57 Discharged to home ambulatory. em 09:57 Condition: good 09:57 Discharge instructions given to patient, Instructed on discharge instructions, follow up and referral plans. medication usage, Demonstrated understanding of instructions, follow-up care, medications, Prescriptions given X 2. 10:00 Patient left the ED. em Signatures: Dispatcher [employer] Venu Grant, SPECIAL AGENT SECRET SERVICE SPECIAL AGENT SECRET SERVICE Radha Tellez Shelby, ASHLEY RN ss Albert Hudson MD MD
--- NOTE | 2019-03-09 08:52 | EDPHYS ---
Physician Documentation [facility] Name: Marjan Fleming Age: 64 yrs Sex: Female : 1955 Arrival Date: 03/09/2019 Time: 06:56 Bed 14 Private MD: Lele Rahman H ED Physician Albert Hudson HPI: 03/09 08:49 This 64 yrs old Female presents to ER via Ambulatory with complaints of gs Cough, Congestion. 08:49 The patient or guardian reports cough, that is intermittent. Onset: The gs symptoms/episode began/occurred 5 day(s) ago. Severity of symptoms: At their worst the symptoms were moderate, in the emergency department the symptoms are unchanged. Modifying factors: The symptoms are alleviated by nothing, the symptoms are aggravated by cold weather, smoke. Associated signs and symptoms: Pertinent negatives: fever. The patient has experienced similar episodes in the past, a few times. The patient has not recently seen a physician. Historical: - Allergies: 07:08 Bactrim DS; ss 07:08 Codeine; ss 07:08 metoclopramide HCl; ss 07:08 Stadol; ss - PMHx: 07:08 Anxiety; Atrial Fib; COPD; Chronic pain; Bipolar disorder; esophageal varices; ss Hepatitis; HIV; Hypertension; Migraines; Panic Attacks; - Immunization history:: Adult Immunizations up to date. - Social history:: Smoking status: Patient uses tobacco products, 3-4 cigarettes/ day. - Ebola Screening: : Patient denies exposure to infectious person Patient denies travel to an Ebola-affected area in the 21 days before illness onset. ROS: 08:49 All other systems are negative. gs Exam: 08:49 Head/Face: Normocephalic, atraumatic. Eyes: Pupils equal round and reactive to light, gs extra-ocular motions intact. Lids and lashes normal. Conjunctiva and sclera are non-icteric and not injected. Cornea within normal limits. Periorbital areas with no swelling, redness, or edema. ENT: Nares patent. No nasal discharge, no septal abnormalities noted. Tympanic membranes are normal and external auditory canals are clear. Oropharynx with no redness, swelling, or masses, exudates, or evidence of obstruction, uvula midline. Mucous membranes moist. Neck: Trachea midline, no thyromegaly or masses palpated, and no cervical lymphadenopathy. Supple, full range of motion without nuchal rigidity, or vertebral point tenderness. No Meningismus. Chest/axilla: Normal chest wall appearance and motion. Nontender with no deformity. No lesions are appreciated. Cardiovascular: Regular rate and rhythm with a normal S1 and S2. No gallops, murmurs, or rubs. Normal PMI, no JVD. No pulse deficits. Abdomen/GI: Soft, non-tender, with normal bowel sounds. No distension or tympany. No guarding or rebound. No evidence of tenderness throughout. Back: No spinal tenderness. No costovertebral tenderness. Full range of motion. Skin: Warm, dry with normal turgor. Normal color with no rashes, no lesions, and no evidence of cellulitis. MS/ Extremity: Pulses equal, no cyanosis. Neurovascular intact. Full, normal range of motion. Neuro: Awake and alert, GCS 15, oriented to person, place, time, and situation. Cranial nerves II-XII grossly intact. Motor strength 5/5 in all extremities. Sensory grossly intact. Cerebellar exam normal. Normal gait. 08:49 Constitutional: The patient appears alert, awake. 08:49 Respiratory: the patient does not display signs of respiratory distress, Respirations: normal, no use of accessory muscles, no retractions, Breath sounds: rhonchi, that are mild, are scattered, wheezing: that is mild, is scattered. 08:49 ECG was reviewed by the Attending Physician. Vital Signs: 07:06 BP 173 / 102; Pulse 70; Resp 17; Temp 97.3(TE); Pulse Ox 99% on R/A; Weight 93.44 kg; ss Height 5 ft. 4 in. (162.56 cm); Pain 9/10; 08:04 BP 143 / 90; Pulse 68; Resp 18; Pulse Ox 97% on R/A; em 07:06 Body Mass Index 35.36 (93.44 kg, 162.56 cm) ss MDM: 07:16 Patient medically screened. gs 08:49 Differential Diagnosis: Bronchitis Influenza Upper Respiratory Infection. Data gs reviewed: vital signs, nurses notes. Counseling: I had a detailed discussion with the patient and/or guardian regarding: the historical points, exam findings, and any diagnostic results supporting the discharge/admit diagnosis, lab results, radiology results, the need for outpatient follow up. Response to treatment: the patient's symptoms have markedly improved after treatment, the patient's condition has returned to base line, and as a result, I will discharge patient. 03/09 07:19 Order name: Basic Metabolic Panel; Complete Time: 08:39 gs 03/09 07:19 Order name: CBC with Diff gs 03/09 07:19 Order name: NT PRO-BNP; Complete Time: 08:39 gs 03/09 07:19 Order name: Troponin (emerg Dept Use Only); Complete Time: 08:39 gs 03/09 07:19 Order name: Flu; Complete Time: 08:25 gs 03/09 09:09 Order name: ABG kdr 03/09 07:19 Order name: XRAY Chest (1 view); Complete Time: 08:25 gs 03/09 07:19 Order name: EKG; Complete Time: 07:20 gs 03/09 07:19 Order name: Cardiac monitoring; Complete Time: 08:00 gs 03/09 07:19 Order name: EKG - Nurse/Tech; Complete Time: 08:00 gs 03/09 0719 Order name: Labs collected and sent; Complete Time: 08:00 gs 03/09 07:19 Order name: O2 Per Protocol; Complete Time: 08:00 gs 03/09 07:19 Order name: O2 Sat Monitoring; Complete Time: 08:00 gs EC:49 Rate is 64 beats/min. Rhythm is regular. NE interval is normal. QRS interval is normal. gs T waves are Normal. No ST changes noted. Clinical impression: NSR w/ Non-specific ST/T Changes. Interpreted by me. Administered Medications: 07:36 Drug: Albuterol 2.5 mg Route: Inhalation; em 08:00 Follow up: Response: No adverse reaction; Marked relief of symptoms em 07:36 Drug: predniSONE 20 mg Route: PO; em 08:11 Follow up: Response: No adverse reaction em 08:56 Drug: Potassium Effervescent Tablet 50 mEq Route: PO; em 09:12 Follow up: Response: No adverse reaction em 09:12 Drug: Albuterol 2.5 mg Route: Inhalation; em 09:48 Follow up: Response: No adverse reaction; Marked relief of symptoms em 09:12 Drug: AtroVENT Aerosol 0.5 mg Route: Inhalation; em 09:48 Follow up: Response: No adverse reaction; Marked relief of symptoms em Disposition: 03/09/19 09:31 Discharged to Home. Impression: Acute bronchitis. - Condition is Stable. - Discharge Instructions: Acute Bronchitis, Adult. - Prescriptions for Prednisone 20 mg Oral Tablet - take 1 tablet by ORAL route once daily for 5 days; 5 tablet. Albuterol Sulfate 90 mcg/actuation - inhale 1-2 puff by INHALATION route every 4-6 hours; 1 Inhaler. - Work release form, Medication Reconciliation Form, Thank You Letter, Antibiotic Education, Prescription Opioid Use form. - Follow up: Private Physician; When: 2 - 3 days; Reason: Re-evaluation by your physician. Signatures: Dispatcher [employer] Joey Sanabria MD MD [facility] Venu Ortega, FRAMING INSPECTOR FRAMING INSPECTOR em Sandra Cadet RN RN ss Albert Hudson MD MD gs Corrections: (The following items were deleted from the chart) 09:09 08:51 03/09/2019 08:51 Discharged to Home. Impression: Acute bronchitis. Condition is gs Stable. Forms are Medication Reconciliation Form, Thank You Letter, Antibiotic Education, Prescription Opioid Use. Follow up: Private Physician; When: 1 - 2 days; Reason: Re-evaluation by your physician. gs 10:00 09:31 03/09/2019 09:31 Discharged to Home. Impression: Acute bronchitis. Condition is em Stable. Prescriptions for Prednisone 20 mg Oral Tablet - take 1 tablet by ORAL route once daily for 5 days; 5 tablet, Albuterol Sulfate 90 mcg/actuation - inhale 1-2 puff by INHALATION route every 4-6 hours; 1 Inhaler. and Forms are Medication Reconciliation Form, Thank You Letter, Antibiotic Education, Prescription Opioid Use. Follow up: Private Physician; When: 2 - 3 days; Reason: Re-evaluation by your physician. gs
[2019-03-09] MEDS ORDERED: IPRATROPIUM BROM 0.5MG/2.5ML ONE (09:09)
[2019-03-09 09:29] LABS: Arterial Blood Carboxyhemoglob 1.8 % (0-1.5); Blood Gas Oxyhemoglobin 96.8 % (94-97); Blood O2 Saturation 99.4 % (92-98.5)
[2019-03-09 10:18] VITALS: TEMP 97.3
[2019-03-09 10:19] VITALS: BP 143/90; O2SAT 97
[2019-03-09 10:57] LABS: Anisocytosis 2+; Blood Morphology Comment NOTED (NOT SEEN); Platelet Estimate ADEQ; Urine White Blood Cell Casts OK
--- NOTE | 2019-03-09 12:54 | EKG ---
Test Date: 2019-03-09 Test Time: 07:27:37 Supervisor Dog License Officer: STEPHANIE MEASUREMENT RESULTS: Intervals: Rate: 64 [place]: 186 QRSD: 90 QT: 430 QTc: 443 [place]: P: 19 [place]: 186 QRS: 8 T: 25 INTERPRETIVE STATEMENTS: Normal sinus rhythm Moderate voltage criteria for LVH, may be normal variant Nonspecific T wave abnormality Abnormal ECG Compared to ECG 10/22/2018 11:08:17 T-wave abnormality now present Electronically Signed On 03-09-19 12:53:00 CDT by Rich Grissom
== END 2019-03-09 10:00 | disposition home or self-care (01) ==
LOC: ER 06:55
DX: J20.9 Acute bronchitis, unspecified (principal); F17.210 Nicotine dependence, cigarettes, uncomplicated; Z88.6 Allergy status to analgesic agent; Z88.1 Allergy status to other antibiotic agents; Z88.8 Allergy status to other drugs, medicaments and biological substances
CPT/HCPCS: 36415; 71045; 80048; 82805; 83880; 84484; 85025; 87804; 93005; 99285; J7512

== ENCOUNTER 2019-03-13 13:24 | Emergency (ER) | payer OTHER ==
[2019-03-13 14:17] LABS: Urine Blood TRACE (NEG); Urine Glucose NEGATIVE (NEG); Urine Protein NEGATIVE (NEG); Urine Specific Gravity 1.025 (1.005-1.030); Urine pH 5.5 (5.0-7.0)
[2019-03-13] MEDS ORDERED: MORPHINE 4 MG/ML SYR ONE ×2 (14:34→16:03)
[2019-03-13] MEDS ORDERED: ONDANSETRON 4 MG (ODT) TAB ONE (14:34)
[2019-03-13 15:55] LABS: Urine Bacteria <20 /HPF (<20); Urine Culture Reflex Order REFLEXED; Urine Mucus 1+ /HPF (NONE SEEN); Urine RBC <5 /HPF (NONE SEEN)
--- NOTE | 2019-03-13 15:58 | ER ---
Nurse's Notes [facility] Name: Marjan Fleming Age: 64 yrs Sex: Female : 1955 Arrival Date: 03/13/2019 Time: 13:26 Bed 28 Private MD: Diagnosis: Urinary tract infection, site not specified;Dermatitis, unspecified Presentation: 03/13 13:31 Presenting complaint: Patient states: Burning with urination, blood in urine, started la1 this morning. Transition of care: patient was not received from another setting of care. Onset of symptoms was March 13, 2019. Risk Assessment: Do you want to hurt yourself or someone else? Patient reports no desire to harm self or others. Initial Sepsis Screen: Does the patient meet any 2 criteria? No. Patient's initial sepsis screen is negative. Does the patient have a suspected source of infection? No. Patient's initial sepsis screen is negative. Care prior to arrival: None. 13:31 Method Of Arrival: Ambulatory la1 13:31 Acuity: BLAYNE 3 la1 Historical: - Allergies: 13:31 Bactrim DS; la1 13:31 Codeine; la1 13:31 metoclopramide HCl; la1 13:31 Stadol; la1 - PMHx: 13:31 Anxiety; Atrial Fib; Chronic pain; COPD; esophageal varices; Bipolar disorder; la1 Hepatitis; HIV; Hypertension; Migraines; Panic Attacks; - Immunization history:: Adult Immunizations up to date. - Social history:: Smoking status: unknown. - Ebola Screening: : No symptoms or risks identified at this time. Screenin:16 Abuse screen: Denies threats or abuse. Denies injuries from another. Nutritional rv screening: No deficits noted. Tuberculosis screening: No symptoms or risk factors identified. Fall Risk None identified. Assessment: 14:14 General: Appears in no apparent distress. uncomfortable, Behavior is calm, cooperative. rv Pain: Complains of pain in pelvis. Neuro: Level of Consciousness is awake, alert, obeys commands, Oriented to person, place, time, situation. Cardiovascular: Patient's skin is warm and dry. Respiratory: Airway is patent. GI: No signs and/or symptoms were reported involving the gastrointestinal system. : Reports burning with urination. EENT: No signs and/or symptoms were reported regarding the EENT system. Derm: Skin is intact. Musculoskeletal: No signs and/or symptoms reported regarding the musculoskeletal system. 16:25 Reassessment: Patient appears in no apparent distress at this time. Patient and/or rv family updated on plan of care and expected duration. Pain level reassessed. Patient is alert, oriented x 3, equal unlabored respirations, skin warm/dry/pink. patient updated on the lab results. explained the plan of care. given antibiotic thru IM. monitoring for allergic reaction. 16:33 Reassessment: shows no signs of any allergic reaction with the antibiotic. spouse is rv waiting outside to pick the patient and take her home. Vital Signs: 13:32 BP 156 / 100; Pulse 73; Resp 16; Temp 97.3; Pulse Ox 100% on R/A; Weight 93.44 kg; la1 Height 5 ft. 4 in. (162.56 cm); 14:30 BP 152 / 87; Pulse 68; Resp 16; Pulse Ox 97% on R/A; rv 15:00 BP 158 / 85; Pulse 63; Resp 15; Pulse Ox 96% on R/A; rv 16:00 BP 151 / 86; Pulse 66; Resp 15; Pulse Ox 100% on R/A; rv 13:32 Body Mass Index 35.36 (93.44 kg, 162.56 cm) la1 ED Course: 13:26 Patient arrived in ED. mr 13:32 Triage completed. la1 13:32 Arm band placed on left wrist. la1 13:51 Austin Raza NP is PHCP. pm1 13:51 Ramon Baker MD is Attending Physician. pm1 14:09 Scott Yates RN is Primary Nurse. rv 14:14 Urine Microscopic Only Sent. rv 14:17 Patient has correct armband on for positive identification. Bed in low position. Call rv light in reach. Side rails up X 1. Pulse ox on. NIBP on. 16:33 No provider procedures requiring assistance completed. Patient did not have IV access rv during this emergency room visit. Administered Medications: 14:35 Drug: morphine 4 mg {Note: rass 0.} Route: IM; Site: right deltoid; rv 15:00 Follow up: Response: Pain is decreased; RASS: Alert and Calm (0) rv 14:35 Drug: Zofran 4 mg Route: PO; rv 15:00 Follow up: Response: No adverse reaction rv 16:19 Drug: morphine 4 mg {Note: rass 0.} Route: IM; Site: right deltoid; rv 16:34 Follow up: Response: No adverse reaction rv 16:34 Follow up: Response: Marked relief of symptoms; RASS: Alert and Calm (0) rv 16:19 Drug: Rocephin (cefTRIAXone) 1 grams Route: IM; Site: right gluteus; rv 16:35 Follow up: Response: No adverse reaction rv Outcome: 15:57 Discharge ordered by MD. pm1 16:34 Discharged to home ambulatory. rv 16:34 Condition: improved 16:34 Discharge instructions given to patient, Instructed on discharge instructions, follow up and referral plans. medication usage, Demonstrated understanding of instructions, follow-up care, medications, Prescriptions given X 2. 16:35 Patient left the ED. rv Addendum: 03/15/2019 07:14 Addendum: Culture Results: Positive urine culture. No further action required. Bacteria e b sensitive to prescribed antibiotic. Signatures: Jessie Hill Lee, RN RN la1 Austin Raza, [employer] SAL[employer]OCIATE pm1 Jo Ann Huynh Ronaldo, RN RN rv
--- NOTE | 2019-03-13 15:58 | EDPHYS ---
Physician Documentation [facility] Name: Marjan Fleming Age: 64 yrs Sex: Female : 1955 Arrival Date: 03/13/2019 Time: 13:26 Bed 28 Private MD: ED Physician Ramon Baker HPI: 03/13 14:15 This 64 yrs old Female presents to ER via Ambulatory with complaints of Pain pm1 With Urination. 14:15 The patient presents with urinary symptoms, dysuria, hematuria. Onset: The pm1 symptoms/episode began/occurred today. Modifying factors: The symptoms are alleviated by nothing, the symptoms are aggravated by urinating. Associated signs and symptoms: Pertinent positives: rash to perianal area, Pertinent negatives: fever, nausea, vomiting. Severity of symptoms: in the emergency department the symptoms are unchanged. The patient has experienced similar episodes in the past, a few times. The patient has been recently seen at the [facility] Emergency Department, for unrelated complaints, dx with bronchitis. Historical: - Allergies: 13:31 Bactrim DS; la1 13:31 Codeine; la1 13:31 metoclopramide HCl; la1 13:31 Stadol; la1 - PMHx: 13:31 Anxiety; Atrial Fib; Chronic pain; COPD; esophageal varices; Bipolar disorder; la1 Hepatitis; HIV; Hypertension; Migraines; Panic Attacks; - Immunization history:: Adult Immunizations up to date. - Social history:: Smoking status: unknown. - Ebola Screening: : No symptoms or risks identified at this time. ROS: 14:15 Positive for hematuria, burning with urination, Negative for pelvic pain, flank pain.pm1 14:15 Constitutional: Negative for fever, chills, and weight loss, Cardiovascular: Negative for chest pain, palpitations, and edema, Respiratory: Negative for shortness of breath, cough, wheezing, and pleuritic chest pain, Back: Negative for injury and pain, MS/Extremity: Negative for injury and deformity, Skin: Negative for injury, rash, and discoloration. 14:15 Neuro: Negative for headache, weakness, numbness, tingling, and seizure. Exam: 15:58 Constitutional: This is a well developed, well nourished patient who is awake, alert, pm1 and in no acute distress. Head/Face: Normocephalic, atraumatic. Chest/axilla: Normal chest wall appearance and motion. Nontender with no deformity. No lesions are appreciated. Cardiovascular: Regular rate and rhythm with a normal S1 and S2. No gallops, murmurs, or rubs. Normal PMI, no JVD. No pulse deficits. Respiratory: Lungs have equal breath sounds bilaterally, clear to auscultation and percussion. No rales, rhonchi or wheezes noted. No increased work of breathing, no retractions or nasal flaring. Abdomen/GI: Soft, non-tender, with normal bowel sounds. No distension or tympany. No guarding or rebound. No evidence of tenderness throughout. Back: No spinal tenderness. No costovertebral tenderness. Full range of motion. 15:58 Skin: Warm, dry with normal turgor. Normal color with no rashes, no lesions, and no evidence of cellulitis. MS/ Extremity: Pulses equal, no cyanosis. Neurovascular intact. Full, normal range of motion. 15:58 : Pelvic Exam: External exam: consistent with diaper dermatitis. Director [employer] Sandra. Vital Signs: 13:32 BP 156 / 100; Pulse 73; Resp 16; Temp 97.3; Pulse Ox 100% on R/A; Weight 93.44 kg; la1 Height 5 ft. 4 in. (162.56 cm); 14:30 BP 152 / 87; Pulse 68; Resp 16; Pulse Ox 97% on R/A; rv 15:00 BP 158 / 85; Pulse 63; Resp 15; Pulse Ox 96% on R/A; rv 16:00 BP 151 / 86; Pulse 66; Resp 15; Pulse Ox 100% on R/A; rv 13:32 Body Mass Index 35.36 (93.44 kg, 162.56 cm) la1 MDM: 13:52 Patient medically screened. pm1 15:56 Data reviewed: vital signs. Data interpreted: Pulse oximetry: on room air is 96 %. pm1 Interpretation: normal. 15:56 Counseling: I had a detailed discussion with the patient and/or guardian regarding: the pm1 historical points, exam findings, and any diagnostic results supporting the discharge/admit diagnosis, lab results, the need for outpatient follow up, to return to the emergency department if symptoms worsen or persist or if there are any questions or concerns that arise at home. 03/13 13:59 Order name: Urine Microscopic Only; Complete Time: 15:56 pm1 03/13 14:15 Order name: Urine Dipstick--Ancillary (enter results); Complete Time: 14:20 bd 03/13 15:58 Order name: Urine Culture [facility] 03/13 13:59 Order name: Urine Dipstick-Ancillary (obtain specimen); Complete Time: 14:14 pm1 Administered Medications: 14:35 Drug: morphine 4 mg {Note: rass 0.} Route: IM; Site: right deltoid; rv 15:00 Follow up: Response: Pain is decreased; RASS: Alert and Calm (0) rv 14:35 Drug: Zofran 4 mg Route: PO; rv 15:00 Follow up: Response: No adverse reaction rv 16:19 Drug: morphine 4 mg {Note: rass 0.} Route: IM; Site: right deltoid; rv 16:34 Follow up: Response: No adverse reaction rv 16:34 Follow up: Response: Marked relief of symptoms; RASS: Alert and Calm (0) rv 16:19 Drug: Rocephin (cefTRIAXone) 1 grams Route: IM; Site: right gluteus; rv 16:35 Follow up: Response: No adverse reaction rv Disposition: 17:00 Co-signature as Attending Physician, Ramon Baker MD. rn Disposition: 03/13/19 15:57 Discharged to Home. Impression: Urinary tract infection, site not specified, Dermatitis, unspecified. - Condition is Stable. - Discharge Instructions: Urinary Tract Infection, Adult, Perianal Dermatitis, Adult. - Prescriptions for nystatin 100,000 unit/gram Topical ointment - apply 1 application by TOPICAL route 3 times per day for 7 days; 30 gram. Macrobid 100 mg Oral Capsule - take 1 capsule by ORAL route every 12 hours for 7 days; 14 capsule. - Medication Reconciliation Form, Thank You Letter, Antibiotic Education, Prescription Opioid Use form. - Follow up: Emergency Department; When: As needed; Reason: Worsening of condition. Follow up: Private Physician; When: 2 - 3 days; Reason: Recheck today's complaints, Continuance of care, Re-evaluation by your physician. - Problem is new. - Symptoms have improved. Signatures: Dispatcher [facility] Ramon Baker MD MD rn Attema, Lee, RN RN la1 Austin Raza, TIMBO [employer] MA[employer]ACHINE TENDER pm1 Scott Yates, RN RN rv Corrections: (The following items were deleted from the chart) 16:35 15:57 03/13/2019 15:57 Discharged to Home. Impression: Urinary tract infection, site rv not specified; Dermatitis, unspecified. Condition is Stable. Forms are Medication Reconciliation Form, Thank You Letter, Antibiotic Education, Prescription Opioid Use. Follow up: Emergency Department; When: As needed; Reason: Worsening of condition. Follow up: Private Physician; When: 2 - 3 days; Reason: Recheck today's complaints, Continuance of care, Re-evaluation by your physician. Problem is new. Symptoms have improved. pm1
[2019-03-13] MEDS ORDERED: CEFTRIAXONE 1000 MG/VIAL ONE (16:03)
[2019-03-13 17:26] VITALS: TEMP 97.3
[2019-03-13 17:30] VITALS: BP 151/86; O2SAT 100
== END 2019-03-13 16:35 | disposition home or self-care (01) ==
LOC: ER 13:24
DX: N39.0 Urinary tract infection, site not specified (principal); L30.9 Dermatitis, unspecified; I10 Essential (primary) hypertension; Z21 Asymptomatic human immunodeficiency virus [HIV] infection status; Z88.1 Allergy status to other antibiotic agents; Z88.5 Allergy status to narcotic agent; Z88.8 Allergy status to other drugs, medicaments and biological substances
CPT/HCPCS: 81003; 81015; 87077; 87086; 87088; 87186; 96372; 99284

== ENCOUNTER 2019-04-07 17:42 | Emergency (ER) | payer OTHER ==
--- OUTSIDE RECORDS SUMMARY | 2019-04-07 17:43 | XMS REPORT ---
:1955 [facility] Address [address] [place] [address] Dr. Obrien[address] [place] [id number] Care Team Providers Name Role Phone Unavailable Unavailable Unavailable Problems This patient has no known problems. Allergies, Adverse Reactions, Alerts This patient has no known allergies or adverse reactions. Medications This patient has no known medications.
--- NOTE | 2019-04-07 18:23 | RAD REPORT ---
EXAM DESCRIPTION: RAD - Chest Pa And Lat (2 Views) - 04/07/2019 6:15 pm CLINICAL HISTORY: Cough;Congestion Chest pain. COMPARISON: Chest Single View dated 03/09/2019; Chest Single View dated 10/22/2018; Chest Single View dated 09/09/2018; Chest Single View dated 07/05/2018; Chest Pa And Lat (2 Views) dated 09/06/2016 FINDINGS: The lungs are clear. The heart is normal in size. Bilateral shoulder arthroplasties. Small hiatal hernia.
[2019-04-07] MEDS ORDERED: ONDANSETRON 4 MG (ODT) TAB ONE (18:32)
--- NOTE | 2019-04-07 19:10 | EDPHYS ---
Physician Documentation [facility] Name: Marjan Fleming Age: 64 yrs Sex: Female : 1955 Arrival Date: 04/07/2019 Time: 17:44 Bed 18 Private MD: Lele Rahman H ED Physician Justus Kolb HPI: 04/07 19:08 This 64 yrs old Female presents to ER via Ambulatory with complaints of kb Cough, Chest Congestion. 19:08 The patient or guardian reports cough, that is intermittent, described as mild, with no kb sputum. The patient has not experienced similar symptoms in the past. The patient has not recently seen a physician. 19:08 Onset: The symptoms/episode began/occurred 1 week(s) ago. Severity of symptoms: At kb their worst the symptoms were mild, moderate, in the emergency department the symptoms are unchanged. Modifying factors: The symptoms are alleviated by nothing, the symptoms are aggravated by nothing. Associated signs and symptoms: Pertinent positives: diarrhea, nausea. Pt reports wheezing, cough and congestion for a week. States "I have HIV so I want to make sure I don't have pneumonia.". Historical: - Allergies: 17:50 Bactrim DS; aj1 17:50 Codeine; aj1 17:50 metoclopramide HCl; aj1 17:50 Stadol; aj1 - Home Meds: 17:50 Albuterol Inhl [Active]; Descovy 200-25 mg Oral tab 1 tab once daily [Active]; aj1 Hydralazine Oral [Active]; lisinopril Oral [Active]; Lorazepam Oral [Active]; Metoprolol Tartrate Oral [Active]; Norvasc Oral [Active]; raltegravir Oral [Active]; Trimethoprim-Sulfamethoxazole Oral [Active]; - PMHx: 17:50 Anxiety; Atrial Fib; Bipolar disorder; Chronic pain; COPD; esophageal varices; aj1 Hepatitis; HIV; Hypertension; Migraines; Panic Attacks; - Immunization history:: Flu vaccine is up to date. - Social history:: Smoking status: Patient uses tobacco products, 4-5 cigarettes per day. - Ebola Screening: : Patient denies travel to an Ebola-affected area in the 21 days before illness onset. ROS: 19:06 ENT: Negative for injury, pain, and discharge, Neck: Negative for injury, pain, and kb swelling, Cardiovascular: Negative for chest pain, palpitations, and edema, Abdomen/GI: Negative for abdominal pain, nausea, vomiting, diarrhea, and constipation, Back: Negative for injury and pain, MS/Extremity: Negative for injury and deformity, Skin: Negative for injury, rash, and discoloration, Neuro: Negative for headache, weakness, numbness, tingling, and seizure. 19:06 Constitutional: Positive for malaise. 19:06 Respiratory: Positive for cough, wheezing. Exam: 19:06 Constitutional: This is a well developed, well nourished patient who is awake, alert, kb and in no acute distress. Head/Face: Normocephalic, atraumatic. ENT: Nares patent. No nasal discharge, no septal abnormalities noted. Tympanic membranes are normal and external auditory canals are clear. Oropharynx with no redness, swelling, or masses, exudates, or evidence of obstruction, uvula midline. Mucous membranes moist. Neck: Trachea midline, no thyromegaly or masses palpated, and no cervical lymphadenopathy. Supple, full range of motion without nuchal rigidity, or vertebral point tenderness. No Meningismus. Chest/axilla: Normal chest wall appearance and motion. Nontender with no deformity. No lesions are appreciated. Cardiovascular: Regular rate and rhythm with a normal S1 and S2. No gallops, murmurs, or rubs. Normal PMI, no JVD. No pulse deficits. Abdomen/GI: Soft, non-tender, with normal bowel sounds. No distension or tympany. No guarding or rebound. No evidence of tenderness throughout. Back: No spinal tenderness. No costovertebral tenderness. Full range of motion. Skin: Warm, dry with normal turgor. Normal color with no rashes, no lesions, and no evidence of cellulitis. MS/ Extremity: Pulses equal, no cyanosis. Neurovascular intact. Full, normal range of motion. Neuro: Awake and alert, GCS 15, oriented to person, place, time, and situation. Cranial nerves II-XII grossly intact. Motor strength 5/5 in all extremities. Sensory grossly intact. Cerebellar exam normal. Normal gait. 19:06 Respiratory: the patient does not display signs of respiratory distress, Respirations: normal, Breath sounds: wheezing: expiratory that is mild, is scattered. Vital Signs: 17:50 BP 151 / 99; Pulse 72; Resp 18; Temp 98.4; Pulse Ox 98% on R/A; Weight 94.35 kg (R); aj1 Height 5 ft. 4 in. (162.56 cm) (R); Pain 9/10; 18:45 BP 150 / 69; Pulse 70; Resp 19; Pulse Ox 97% ; rb1 19:15 BP 137 / 76; Pulse 65; Resp 20 S; Temp 98.2(O); Pulse Ox 97% on R/A; cc3 19:45 BP 135 / 73; Pulse 68; Resp 18 S; Pulse Ox 98% on R/A; Pain 2/10; cc3 17:50 Body Mass Index 35.70 (94.35 kg, 162.56 cm) aj1 MDM: 18:15 Patient medically screened. thomas 19:07 Data reviewed: vital signs, nurses notes. Data interpreted: Pulse oximetry: on room air kb is 97 %. Interpretation: normal. Counseling: I had a detailed discussion with the patient and/or guardian regarding: the historical points, exam findings, and any diagnostic results supporting the discharge/admit diagnosis, lab results, radiology results, the need for outpatient follow up, a family practitioner, to return to the emergency department if symptoms worsen or persist or if there are any questions or concerns that arise at home. 04/07 18:15 Order name: Flu; Complete Time: 19:03 kb 04/07 17:59 Order name: Chest Pa And Lat (2 Views) XRAY; Complete Time: 18:25 snw 04/07 18:30 Order name: PO challenge; Complete Time: 18:33 kb Administered Medications: 18:33 Drug: Zofran 4 mg Route: PO; rb1 19:15 Follow up: Response: No adverse reaction cc3 19:15 Drug: predniSONE 40 mg Route: PO; cc3 19:45 Follow up: Response: No adverse reaction; Marked relief of symptoms cc3 19:16 Drug: DuoNeb (3:1) (2.5 mg - 0.5 mg) 3 ml Route: Nebulizer; cc3 19:45 Follow up: Response: No adverse reaction; Marked relief of symptoms cc3 Disposition: 04/07/19 19:10 Discharged to Home. Impression: Acute upper respiratory infection, unspecified, Nausea and vomiting, Diarrhea, unspecified. - Condition is Stable. - Discharge Instructions: Viral Gastroenteritis, Adult, [id number], Upper Respiratory Infection, Adult, [id number], Viral Respiratory Infection, [id number]. - Prescriptions for Prednisone 20 mg Oral Tablet - take 1 tablet by ORAL route once daily for 5 days; 5 tablet. Zofran 4 mg Oral Tablet - take 1 tablet by ORAL route every 6 hours As needed; 20 tablet. - Medication Reconciliation Form, Thank You Letter, Antibiotic Education, Prescription Opioid Use form. - Follow up: Emergency Department; When: As needed; Reason: Worsening of condition. Follow up: Private Physician; When: 2 - 3 days; Reason: Recheck today's complaints, Continuance of care, Re-evaluation by your physician. Addendum: 04/10/2019 07:05 Co-signature as Attending Physician, Justus Kolb MD I agree with the assessment and c restrepo plan of care. Signatures: Dispatcher [employer] [facility] Rosemary Cespedes, RESTAURANT ATTENDANT-C RESTAURANT ATTENDANT-Ckb Teresa Guerrero, RN RN aj1 Justus Kolb MD MD cha Barber, Rebecca, RN RN rb1 Diane Ogden cc3 Corrections: (The following items were deleted from the chart) 04/07 19:47 19:10 04/07/2019 19:10 Discharged to Home. Impression: Acute upper respiratory cc3 infection, unspecified; Nausea and vomiting; Diarrhea, unspecified. Condition is Stable. Forms are Medication Reconciliation Form, Thank You Letter, Antibiotic Education, Prescription Opioid Use. Follow up: Emergency Department; When: As needed; Reason: Worsening of condition. Follow up: Private Physician; When: 2 - 3 days; Reason: Recheck today's complaints, Continuance of care, Re-evaluation by your physician. kb
--- NOTE | 2019-04-07 19:10 | ER ---
Nurse's Notes [facility] Name: Marjan Fleming Age: 64 yrs Sex: Female : 1955 Arrival Date: 04/07/2019 Time: 17:44 Bed 18 Private MD: Lele Rahman H Diagnosis: Acute upper respiratory infection, unspecified;Nausea and vomiting;Diarrhea, unspecified Presentation: 04/07 17:48 Presenting complaint: Patient states: Shortness of breath, cough, fever for the past aj1 week. TMax 102. Transition of care: patient was not received from another setting of care. Onset of symptoms was 2018. Risk Assessment: Do you want to hurt yourself or someone else? Patient reports no desire to harm self or others. Initial Sepsis Screen: Does the patient meet any 2 criteria? No. Patient's initial sepsis screen is negative. Does the patient have a suspected source of infection? Yes: Productive cough/pneumonia. Care prior to arrival: None. 17:48 Method Of Arrival: Ambulatory aj1 17:48 Acuity: BLAYNE 3 aj1 Triage Assessment: 17:50 General: Appears in no apparent distress. comfortable, Behavior is calm. Pain: Pain aj1 currently is 9 out of 10 on a pain scale. Neuro: Level of Consciousness is awake, alert, obeys commands. Cardiovascular: Patient's skin is warm and dry. Respiratory: Airway is patent Respiratory effort is even, unlabored, Respiratory pattern is regular, symmetrical. Historical: - Allergies: 17:50 Bactrim DS; aj1 17:50 Codeine; aj1 17:50 metoclopramide HCl; aj1 17:50 Stadol; aj1 - Home Meds: 17:50 Albuterol Inhl [Active]; Descovy 200-25 mg Oral tab 1 tab once daily [Active]; aj1 Hydralazine Oral [Active]; lisinopril Oral [Active]; Lorazepam Oral [Active]; Metoprolol Tartrate Oral [Active]; Norvasc Oral [Active]; raltegravir Oral [Active]; Trimethoprim-Sulfamethoxazole Oral [Active]; - PMHx: 17:50 Anxiety; Atrial Fib; Bipolar disorder; Chronic pain; COPD; esophageal varices; aj1 Hepatitis; HIV; Hypertension; Migraines; Panic Attacks; - Immunization history:: Flu vaccine is up to date. - Social history:: Smoking status: Patient uses tobacco products, 4-5 cigarettes per day. - Ebola Screening: : Patient denies travel to an Ebola-affected area in the 21 days before illness onset. Screenin:55 Abuse screen: Denies threats or abuse. Nutritional screening: No deficits noted. rb1 Tuberculosis screening: No symptoms or risk factors identified. Fall Risk None identified. Assessment: 17:55 General: Appears uncomfortable, Behavior is calm, cooperative, Reports fever for rb1 feeling ill for x 1 week. Pain: Complains of pain in bodyaches Pain currently is 9 out of 10 on a pain scale. Neuro: Level of Consciousness is awake, alert, obeys commands, Oriented to person, place, time, situation. Cardiovascular: Capillary refill < 3 seconds is brisk in bilateral fingers. Respiratory: Reports shortness of breath cough that is Airway is patent Respiratory effort is even, unlabored, Respiratory pattern is regular, symmetrical, the patient has mild shortness of breath. GI: Reports diarrhea, nausea, vomiting. : No signs and/or symptoms were reported regarding the genitourinary system. Derm: Skin is pink, warm \T\ dry. 18:45 Reassessment: Patient appears in no apparent distress at this time. No changes from rb1 previously documented assessment. 19:15 Reassessment: Patient appears in no apparent distress at this time. Patient and/or cc3 family updated on plan of care and expected duration. Pain level reassessed. Patient is alert, oriented x 3, equal unlabored respirations, skin warm/dry/pink. Received this female patient from morning shift ASHLEY Arzola as a case of cough and chest congestion, no IV cannula in situ. General: Appears in no apparent distress. comfortable, Behavior is calm, cooperative, appropriate for age. Pain: Complains of pain in head. Neuro: Level of Consciousness is awake, alert, obeys commands, Oriented to person, place, time, situation, Appropriate for age. Cardiovascular: Denies chest pain, Heart tones S1 S2 present Capillary refill < 3 seconds in bilateral fingers Patient's skin is warm and dry. Respiratory: Airway is patent Respiratory effort is even, unlabored, Respiratory pattern is regular, symmetrical, Breath sounds are clear bilaterally. GI: Abdomen is round non-distended, Bowel sounds present X 4 quads. Abd is soft and non tender X 4 quads. : No signs and/or symptoms were reported regarding the genitourinary system. EENT: No signs and/or symptoms were reported regarding the EENT system. Derm: Skin is intact, is healthy with good turgor, Skin is pink, warm \T\ dry. normal. Musculoskeletal: Circulation, motion, and sensation intact. Range of motion: intact in all extremities. 19:45 Reassessment: Patient appears in no apparent distress at this time. Patient and/or cc3 family updated on plan of care and expected duration. Pain level reassessed. Patient is alert, oriented x 3, equal unlabored respirations, skin warm/dry/pink. Nebulization completed, TIMBO Cespedes discharged the patient home with prescriptions given. No IV cannula in situ. Patient left ER vitally stable and ambulatory. No valuables left in the patient's room. Patient denies pain at this time. Patient states feeling better. Patient states symptoms have improved. Vital Signs: 17:50 BP 151 / 99; Pulse 72; Resp 18; Temp 98.4; Pulse Ox 98% on R/A; Weight 94.35 kg (R); aj1 Height 5 ft. 4 in. (162.56 cm) (R); Pain 9/10; 18:45 BP 150 / 69; Pulse 70; Resp 19; Pulse Ox 97% ; rb1 19:15 BP 137 / 76; Pulse 65; Resp 20 S; Temp 98.2(O); Pulse Ox 97% on R/A; cc3 19:45 BP 135 / 73; Pulse 68; Resp 18 S; Pulse Ox 98% on R/A; Pain 2/10; cc3 17:50 Body Mass Index 35.70 (94.35 kg, 162.56 cm) aj1 ED Course: 17:44 Patient arrived in ED. as 17:45 Lele Rahman DO is Private Physician. as 17:49 Triage completed. aj1 17:50 Arm band placed on Patient placed in an exam room. aj1 17:55 Patient has correct armband on for positive identification. Bed in low position. Call rb1 light in reach. Side rails up X 1. Pulse ox on. NIBP on. Warm blanket given. 18:14 Chest Pa And Lat (2 Views) XRAY In Process Unspecified. EDMS 18:15 Rosemary Cespedes FNP-C is [facility]. kb 18:15 Justus Kolb MD is Attending Physician. kb 18:32 Ness Landers, RN is Primary Nurse. rb1 19:45 No provider procedures requiring assistance completed. Patient did not have IV access cc3 during this emergency room visit. Administered Medications: 18:33 Drug: Zofran 4 mg Route: PO; rb1 19:15 Follow up: Response: No adverse reaction cc3 19:15 Drug: predniSONE 40 mg Route: PO; cc3 19:45 Follow up: Response: No adverse reaction; Marked relief of symptoms cc3 19:16 Drug: DuoNeb (3:1) (2.5 mg - 0.5 mg) 3 ml Route: Nebulizer; cc3 19:45 Follow up: Response: No adverse reaction; Marked relief of symptoms cc3 Outcome: 19:10 Discharge ordered by MD. kb 19:45 Discharged to home ambulatory. cc3 19:45 Condition: stable 19:45 Discharge instructions given to patient, Instructed on discharge instructions, follow up and referral plans. medication usage, Demonstrated understanding of instructions, follow-up care, medications, Prescriptions given X 2. 19:47 Patient left the ED. cc3 Signatures: Dispatcher [employer] [facility]OK Rosemary Cespedes FNP-C FNP-Ckb Johnson, Angela, RN RN aj1 Radha Simons as Ness Landers, RN RN rb1 Diane Ogden cc3
[2019-04-07] MEDS ORDERED: predniSONE 20 MG TAB ONE (19:17)
[2019-04-07] MEDS ORDERED: IPRATROPIUM BROM 0.5MG/2.5ML ONE (19:17)
[2019-04-07] MEDS ORDERED: ALBUTEROL 2.5 MG/3 ML NEB SOL ONE (19:17)
[2019-04-07 20:50] VITALS: O2SAT 97
[2019-04-07 20:51] VITALS: BP 137/76; TEMP 98.2
== END 2019-04-07 19:47 | disposition home or self-care (01) ==
LOC: ER 17:42
DX: J06.9 Acute upper respiratory infection, unspecified (principal); R19.7 Diarrhea, unspecified; R11.2 Nausea with vomiting, unspecified; F41.9 Anxiety disorder, unspecified; I48.91 Unspecified atrial fibrillation; I10 Essential (primary) hypertension; J44.9 Chronic obstructive pulmonary disease, unspecified; Z21 Asymptomatic human immunodeficiency virus [HIV] infection status; Z72.0 Tobacco use; Z88.1 Allergy status to other antibiotic agents; Z88.5 Allergy status to narcotic agent
CPT/HCPCS: 71046; 87804; 94640; 99284; J7512

== ENCOUNTER 2019-04-09 19:31 | Emergency (ER) | payer OTHER ==
--- OUTSIDE RECORDS SUMMARY | 2019-04-09 19:35 | XMS REPORT ---
:1955 [facility] Address [address] [place] [address] Dr. Obrien. [address] [place] [id number] Care Team Providers Name Role Phone Unavailable Unavailable Unavailable Problems This patient has no known problems. Allergies, Adverse Reactions, Alerts This patient has no known allergies or adverse reactions. Medications This patient has no known medications.
[2019-04-09 20:36] LABS: Urine Appearance CLEAR; Urine Color YELLOW; Urine Microscopic Reflex ORDER UMIC
[2019-04-09] MEDS ORDERED: NITROFURAN MACRO 100 MG CAP PO ONE (20:45)
[2019-04-09] MEDS ORDERED: FLUCONAZOLE 100 MG TAB ONE (20:45)
[2019-04-09] MEDS ORDERED: IBUPROFEN 400 MG TAB ONE (20:46)
[2019-04-09 20:47] LABS: Urine Blood 3+ (NEG); Urine Glucose NEGATIVE (NEG); Urine Protein 1+ (NEG)
[2019-04-09 20:54] LABS: Urine Bilirubin NEGATIVE (NEG)
[2019-04-09 20:55] LABS: Urine Bacteria <20 /HPF (<20); Urine Culture Reflex Order REFLEXED; Urine RBC >50 /HPF (NONE SEEN)
--- NOTE | 2019-04-09 20:56 | EDPHYS ---
Physician Documentation [facility] Name: Marjan Fleming Age: 64 yrs Sex: Female : 1955 Arrival Date: 04/09/2019 Time: 19:36 Bed 6 Private MD: ED Physician Marcos Lema HPI: 04/09 21:29 This 64 yrs old Female presents to ER via Ambulatory with complaints of tw4 Vaginal Pain, Vaginal Itching, Urinary Problem, Rash. 21:29 The patient presents with urinary symptoms. tw4 21:30 Onset: The symptoms/episode began/occurred 1 week(s) ago. Modifying factors: The tw4 symptoms are alleviated by nothing, the symptoms are aggravated by nothing. Associated signs and symptoms: The patient has no apparent associated signs or symptoms. Severity of symptoms: At their worst the symptoms were moderate, in the emergency department the symptoms are unchanged. The patient has not experienced similar symptoms in the past. 21:30 The patient has been recently seen at the [facility] Emergency tw4 Department, last month. Historical: - Allergies: 19:41 Bactrim DS; ss 19:41 Codeine; ss 19:41 metoclopramide HCl; ss 19:41 Stadol; ss - Home Meds: 19:41 Albuterol Inhl [Active]; Descovy 200-25 mg Oral tab 1 tab once daily [Active]; ss Hydralazine Oral [Active]; lisinopril Oral [Active]; Metoprolol Tartrate Oral [Active]; raltegravir Oral [Active]; Trimethoprim-Sulfamethoxazole Oral [Active]; Norvasc Oral [Active]; Lorazepam Oral [Active]; - PMHx: 19:41 Anxiety; Chronic pain; Bipolar disorder; COPD; Atrial Fib; esophageal varices; HIV; ss Hepatitis; Migraines; Hypertension; Panic Attacks; - Immunization history:: Adult Immunizations up to date. - Social history:: Smoking status: Patient uses tobacco products, smokes one-half pack cigarettes per day. - Ebola Screening: : Patient denies exposure to infectious person Patient denies travel to an Ebola-affected area in the 21 days before illness onset. ROS: 21:30 Positive for urinary symptoms, burning with urination, difficulty urinating, foul tw4 smelling urine. 21:30 Constitutional: Negative for fever, chills, and weight loss, Eyes: Negative for injury, pain, redness, and discharge, Cardiovascular: Negative for chest pain, palpitations, and edema, Respiratory: Negative for shortness of breath, cough, wheezing, and pleuritic chest pain, Abdomen/GI: Negative for abdominal pain, nausea, vomiting, diarrhea, and constipation, Back: Negative for injury and pain, Skin: Negative for injury, rash, and discoloration, Neuro: Negative for headache, weakness, numbness, tingling, and seizure. Exam: 21:30 Constitutional: This is a well developed, well nourished patient who is awake, alert, tw4 and in no acute distress. Head/Face: Normocephalic, atraumatic. Chest/axilla: Normal chest wall appearance and motion. Nontender with no deformity. No lesions are appreciated. Cardiovascular: Regular rate and rhythm with a normal S1 and S2. No gallops, murmurs, or rubs. Normal PMI, no JVD. No pulse deficits. Respiratory: Lungs have equal breath sounds bilaterally, clear to auscultation and percussion. No rales, rhonchi or wheezes noted. No increased work of breathing, no retractions or nasal flaring. Abdomen/GI: Soft, non-tender, with normal bowel sounds. No distension or tympany. No guarding or rebound. No evidence of tenderness throughout. 21:30 : CVA tenderness, is absent, Pelvic Exam: External exam: excoriation noted, erythema perineal area. Vital Signs: 19:41 BP 142 / 103; Pulse 72; Resp 18; Temp 97.4(TE); Pulse Ox 97% on R/A; Weight 94.35 kg; ss Height 5 ft. 4 in. (162.56 cm); Pain 10/10; 21:00 BP 154 / 83; Pulse 66; Resp 18; Pulse Ox 100% on R/A; Pain 10/10; lp1 21:05 Temp 98.3; rr5 19:41 Body Mass Index 35.70 (94.35 kg, 162.56 cm) ss MDM: 19:53 Patient medically screened. tw4 21:30 Differential diagnosis: dysmenorrhea, urinary tract infection. Data reviewed: vital tw4 signs, nurses notes. Data interpreted: Pulse oximetry:. Counseling: I had a detailed discussion with the patient and/or guardian regarding: the historical points, exam findings, and any diagnostic results supporting the discharge/admit diagnosis. 04/09 20:20 Order name: Urinalysis lp1 04/09 20:56 Order name: Urine Microscopic Only EDMS 04/09 20:56 Order name: Urine Culture EDMS Administered Medications: 20:50 Drug: Macrobid 100 mg Route: PO; lp1 21:06 Follow up: Response: No adverse reaction rr5 20:50 Drug: DiFLUcan 150 mg Route: PO; lp1 21:06 Follow up: Response: No adverse reaction rr5 20:50 Not Given (Patient Refused): Motrin 800 mg PO once lp1 21:05 Drug: Zofran 4 mg Route: PO; rr5 21:07 Follow up: Response: Medication administered at discharge. rr5 21:06 Drug: Tylenol #3 (300 mg-30 mg) 1 tablet {Note: rass 0.} Route: PO; rr5 21:06 Follow up: Response: Medication administered at discharge. rr5 21:07 Follow up: Response: RASS: Alert and Calm (0) rr5 Disposition: 04/09/19 20:55 Discharged to Home. Impression: Urinary tract infection, site not specified, Candidiasis of vulva and vagina. - Condition is Stable. - Discharge Instructions: Urinary Tract Infection, Adult, Vaginal Yeast Infection, Adult, Vaginitis, Skin Yeast Infection. - Prescriptions for Pyridium 200 mg Oral Tablet - take 1 tablet by ORAL route every 8 hours for 3 days; 9 tablet. Macrobid 100 mg Oral Capsule - take 1 capsule by ORAL route every 12 hours for 10 days; 20 capsule. Nystatin- Triamcinolone 100,000-0.1 unit/g-% Topical Cream - apply 1 application by TOPICAL route 2 times per day; 1 tube. - Medication Reconciliation Form, Thank You Letter, Antibiotic Education, Prescription Opioid Use form. - Follow up: Private Physician; When: Upon discharge from the Emergency Department; Reason: Recheck today's complaints, Continuance of care. - Problem is new. - Symptoms have improved. Signatures: Dispatcher [facility] EDVT Sandra Cadet RN RN ss Ora Portillo RN RN lp1 Marcos Lema MD MD tw4 Agee, Goldy, RN RN rr5 Corrections: (The following items were deleted from the chart) 21:11 20:55 04/09/2019 20:55 Discharged to Home. Impression: Urinary tract infection, site rr5 not specified; Candidiasis of vulva and vagina. Condition is Stable. Forms are Medication Reconciliation Form, Thank You Letter, Antibiotic Education, Prescription Opioid Use. Follow up: Private Physician; When: Upon discharge from the Emergency Department; Reason: Recheck today's complaints, Continuance of care. Problem is new. Symptoms have improved. tw4
--- NOTE | 2019-04-09 20:56 | ER ---
Nurse's Notes [facility] Name: Marjan Fleming Age: 64 yrs Sex: Female : 1955 Arrival Date: 04/09/2019 Time: 19:36 Bed 6 Private MD: Diagnosis: Urinary tract infection, site not specified;Candidiasis of vulva and vagina Presentation: 04/09 19:38 Presenting complaint: Patient states: Burning with urination and small amount of blood ss on underwear after voiding x 1 week. Patient was seen in ER last week and given two antibiotics, states that the symptoms went away for 3 days, but now are back and she now has blisters and severe itching in her pelvic region and the cream she was given did not help. Transition of care: patient was not received from another setting of care. Onset of symptoms was April 02, 2019. Risk Assessment: Do you want to hurt yourself or someone else? Patient reports no desire to harm self or others. Initial Sepsis Screen: Does the patient meet any 2 criteria? No. Patient's initial sepsis screen is negative. Does the patient have a suspected source of infection? Yes: Dysuria/Frequency/Urgency/UTI. Care prior to arrival: None. 19:38 Method Of Arrival: Ambulatory ss 19:38 Acuity: BLAYNE 3 ss Historical: - Allergies: 19:41 Bactrim DS; ss 19:41 Codeine; ss 19:41 metoclopramide HCl; ss 19:41 Stadol; ss - Home Meds: 19:41 Albuterol Inhl [Active]; Descovy 200-25 mg Oral tab 1 tab once daily [Active]; ss Hydralazine Oral [Active]; lisinopril Oral [Active]; Metoprolol Tartrate Oral [Active]; raltegravir Oral [Active]; Trimethoprim-Sulfamethoxazole Oral [Active]; Norvasc Oral [Active]; Lorazepam Oral [Active]; - PMHx: 19:41 Anxiety; Chronic pain; Bipolar disorder; COPD; Atrial Fib; esophageal varices; HIV; ss Hepatitis; Migraines; Hypertension; Panic Attacks; - Immunization history:: Adult Immunizations up to date. - Social history:: Smoking status: Patient uses tobacco products, smokes one-half pack cigarettes per day. - Ebola Screening: : Patient denies exposure to infectious person Patient denies travel to an Ebola-affected area in the 21 days before illness onset. Screenin:21 Abuse screen: Denies threats or abuse. Denies injuries from another. Nutritional lp1 screening: No deficits noted. Tuberculosis screening: No symptoms or risk factors identified. Fall Risk None identified. Assessment: 20:20 General: Appears uncomfortable, Behavior is appropriate for age. Pain: Complains of lp1 pain in groin Pain currently is 8 out of 10 on a pain scale. Quality of pain is described as burning. Neuro: No deficits noted. Cardiovascular: Patient's skin is warm and dry. Respiratory: Respiratory effort is even, unlabored. GI: No deficits noted. : Reports burning with urination, incontinence, urinary frequency. EENT: No signs and/or symptoms were reported regarding the EENT system. Derm: Skin is pink, warm \\T\\ dry. Musculoskeletal: No deficits noted. 20:50 Reassessment: Patient refusing Motrin, states "That won't do anything for me, last time lp1 they gave me a Morphine shot in my butt and that helped a lot"; Patient requesting to ask Provider for Morphine and Zofran instead; Provider notified. 21:08 Reassessment: Patient appears in no apparent distress at this time. Patient is alert, rr5 oriented x 3, equal unlabored respirations, skin warm/dry/pink. discharge instruction given and explained without complaints made, verbalized understanding. 21:11 Reassessment: Patient waiting for daughter for ride home. lp1 Vital Signs: 19:41 BP 142 / 103; Pulse 72; Resp 18; Temp 97.4(TE); Pulse Ox 97% on R/A; Weight 94.35 kg; ss Height 5 ft. 4 in. (162.56 cm); Pain 10/10; 21:00 BP 154 / 83; Pulse 66; Resp 18; Pulse Ox 100% on R/A; Pain 10/10; lp1 21:05 Temp 98.3; rr5 19:41 Body Mass Index 35.70 (94.35 kg, 162.56 cm) ED Course: 19:36 Patient arrived in ED. cf2 19:40 Triage completed. ss 19:41 Arm band placed on left wrist. 19:52 Ora Portillo, RN is Primary Nurse. lp1 19:53 Marcos Lema MD is Attending Physician. tw4 20:20 Assisted as proofer with Dr. Lema for examination of vaginal area, redness noted to lp1 labia. 20:21 Patient has correct armband on for positive identification. Placed in gown. lp1 21:01 Patient did not have IV access during this emergency room visit. lp1 Administered Medications: 20:50 Drug: Macrobid 100 mg Route: PO; lp1 21:06 Follow up: Response: No adverse reaction rr5 20:50 Drug: DiFLUcan 150 mg Route: PO; lp1 21:06 Follow up: Response: No adverse reaction rr5 20:50 Not Given (Patient Refused): Motrin 800 mg PO once lp1 21:05 Drug: Zofran 4 mg Route: PO; rr5 21:07 Follow up: Response: Medication administered at discharge. rr5 21:06 Drug: Tylenol #3 (300 mg-30 mg) 1 tablet {Note: rass 0.} Route: PO; rr5 21:06 Follow up: Response: Medication administered at discharge. rr5 21:07 Follow up: Response: RASS: Alert and Calm (0) rr5 Outcome: 20:55 Discharge ordered by . tw4 21:08 Discharged to home ambulatory. rr5 21:08 Condition: stable 21:08 Discharge instructions given to patient, Instructed on discharge instructions, follow up and referral plans. medication usage, Demonstrated understanding of instructions, follow-up care, medications, Prescriptions given X 3. 21:11 Patient left the ED. rr5 Addendum: 04/12/2019 07:35 Addendum: Culture Results: Positive urine culture. No further action required. Bacteria e b sensitive to prescribed antibiotic. Signatures: Sandra Cadet, RN RN Ora Portillo RN RN lp1 Marcos Lema MD MD tw4 Jo Ann Huynh Raymond RN RN rr5 Magean Dangelo 2
[2019-04-09] MEDS ORDERED: ONDANSETRON 4 MG (ODT) TAB ONE (21:02)
[2019-04-09] MEDS ORDERED: CODEINE 30MG/APAP 300MG TAB ONE (21:02)
[2019-04-10 00:31] VITALS: BP 154/83; O2SAT 100
[2019-04-10 00:32] VITALS: TEMP 98.3
== END 2019-04-09 21:11 | disposition home or self-care (01) ==
LOC: ER 19:31
DX: N39.0 Urinary tract infection, site not specified (principal); B37.3 Candidiasis of vulva and vagina; I10 Essential (primary) hypertension; F17.210 Nicotine dependence, cigarettes, uncomplicated; J44.9 Chronic obstructive pulmonary disease, unspecified; F41.9 Anxiety disorder, unspecified; Z21 Asymptomatic human immunodeficiency virus [HIV] infection status; Z88.1 Allergy status to other antibiotic agents; Z88.5 Allergy status to narcotic agent; Z88.8 Allergy status to other drugs, medicaments and biological substances
CPT/HCPCS: 81003; 81015; 87077; 87086; 87088; 87186; 99283

== ENCOUNTER 2019-04-24 19:14 | Emergency (ER) | payer OTHER ==
--- OUTSIDE RECORDS SUMMARY | 2019-04-24 19:16 | XMS REPORT ---
:1955 [facility] Address [address] [place] [address] Dr. Alexis [address] [place] [id number] Care Team Providers Name Role Phone SYL PORSHA Unavailable Unavailable Problems This patient has no known problems. Allergies, Adverse Reactions, Alerts This patient has no known allergies or adverse reactions. Medications This patient has no known medications. Results Test Description Test Time Test Comments Text Results Atomic Results Result Comments CHLAMYDIA, GC, TV,PCR, IN HOUSE 2019-04-21 15:38:00 Test Item Value Reference Range Comments FT (test code=CHTR) Not detected (qualifier value) Not Detected FT (test code=NGONO) Not detected (qualifier value) Not Detected FT (test code=TRVG) Not detected (qualifier value) Not Detected URINALYSIS WITH [id number] 10:57:00 Test Item Value Reference Range Comments Color (test code=UCOLR) Dk. Yellow Clarity (test code=UCLAR) Hazy Glucose (test code=UGLUC) NEGATIVE NEGATIVE Bilirubin (test code=UBILI) NEGATIVE NEGATIVE Ketones (test code=UKET) NEGATIVE NEGATIVE Specific [place] (test code=USPGR) 1.025 1.005-1.030 Blood (test code=UBLD) NEGATIVE NEGATIVE PH (test code=UPH) 6.0 4.5-8.0 Protein (test code=UPROT) Trace NEGATIVE Urobilinogen (test code=U UROB) 1.0 >0.2 Nitrite (test code=UNITR) Positive NEGATIVE Leukocyte Esterase (test code=ULEUK) NEGATIVE NEGATIVE WBC (test code=WBCUR) 2-4 0-5 RBC (test code=RBCUR) 0-2 0-5 Epithial Cells (test code=U EPI) 5-10 0-10 Mucous (test code=UMUC) None Seen None Seen Bacteria (test code=UBACT) 3+ None Seen,Trace Crystals Urine (test code=URCRYS) None Seen None Seen
--- NOTE | 2019-04-24 19:48 | ER ---
Nurse's Notes [facility] Name: Marjan Fleming Age: 64 yrs Sex: Female : 1955 Arrival Date: 04/24/2019 Time: 19:17 Bed Waiting Private MD: Diagnosis: Presentation: 04/24 19:24 Presenting complaint: Patient states: Chest pain that started yesterday that is worse aj1 if she moves her left arm. Patient also reports cough and fever states that she is concerned that she might have pneumonia. Patient also reports shortness of breath. Respirations even and unlabored in triage. Transition of care: patient was not received from another setting of care. Onset of symptoms was April 23, 2019. Risk Assessment: Do you want to hurt yourself or someone else? Patient reports no desire to harm self or others. Initial Sepsis Screen: Does the patient meet any 2 criteria? No. Patient's initial sepsis screen is negative. Does the patient have a suspected source of infection? No. Patient's initial sepsis screen is negative. Care prior to arrival: None. 19:24 Method Of Arrival: Ambulatory aj1 19:24 Acuity: BLAYNE 3 aj1 19:47 Note Patient told registration staff that she isn't feel that bad anymore and she is aj1 just going to go home and do a breathing treatment and she will return if her symptoms get worse, then walked out of the ER. Triage Assessment: 19:26 General: Appears in no apparent distress. comfortable, Behavior is calm, cooperative, aj1 appropriate for age. Pain: Complains of pain in chest Pain does not radiate. Pain currently is 9 out of 10 on a pain scale. Neuro: Level of Consciousness is awake, alert, obeys commands, Oriented to person, place, time, situation. Cardiovascular: Reports chest pain, shortness of breath, Patient's skin is warm and dry. Respiratory: Reports shortness of breath Airway is patent Respiratory effort is even, unlabored, Respiratory pattern is regular, symmetrical. Historical: - Allergies: 19:26 Bactrim DS; aj1 19:26 Codeine; aj1 19:26 metoclopramide HCl; aj1 19:26 Stadol; aj1 - Home Meds: 19:26 Albuterol Inhl [Active]; Descovy 200-25 mg Oral tab 1 tab once daily [Active]; aj1 Hydralazine Oral [Active]; lisinopril Oral [Active]; Lorazepam Oral [Active]; Metoprolol Tartrate Oral [Active]; Norvasc Oral [Active]; raltegravir Oral [Active]; Trimethoprim-Sulfamethoxazole Oral [Active]; - PMHx: 19:26 Anxiety; Atrial Fib; Bipolar disorder; Chronic pain; COPD; esophageal varices; aj1 Hepatitis; HIV; Hypertension; Migraines; Panic Attacks; - Immunization history:: Flu vaccine is up to date. - Social history:: Smoking status: Patient uses tobacco products, smokes one-half pack cigarettes per day. - Ebola Screening: : Patient denies travel to an Ebola-affected area in the 21 days before illness onset. Vital Signs: 19:26 BP 130 / 89; Pulse 73; Resp 18; Temp 97.7; Pulse Ox 96% on R/A; Weight 93.44 kg (R); aj1 Height 5 ft. 4 in. (162.56 cm) (R); 19:26 Body Mass Index 35.36 (93.44 kg, 162.56 cm) aj1 ED Course: 19:17 Patient arrived in ED. jg7 19:25 Triage completed. aj1 19:26 Arm band placed on Patient placed in waiting room, Patient notified of wait time. aj1 Administered Medications: No medications were administered Outcome: 19:48 Eloped from waiting room. aj1 19:48 Patient left the ED. aj1 Signatures: Teresa Guerrero RN RN aj1 Sharee Jenkins jg7
[2019-04-24 19:57] VITALS: BP 130/89; TEMP 97.7; O2SAT 96
--- NOTE | 2019-04-25 07:44 | EKG ---
Test Date: 2019-04-24 Test Time: 19:27:21 Hogshead Inspector: MARIA D MEASUREMENT RESULTS: Intervals: Rate: 73 AZ: 166 QRSD: 80 QT: 392 QTc: 431 Edmond: P: 50 AZ: 166 QRS: -8 T: -7 INTERPRETIVE STATEMENTS: Normal sinus rhythm Voltage criteria for left ventricular hypertrophy Nonspecific ST and T wave abnormality Abnormal ECG Compared to ECG 03/09/2019 07:27:37 ST (T wave) deviation now present T-wave abnormality no longer present Electronically Signed On 04-25-19 07:43:57 FINISH MENDER by Rich Grissom
== END 2019-04-24 19:48 | disposition left against medical advice (07) ==
LOC: ER 19:14
DX: Z53.21 Procedure and treatment not carried out due to patient leaving prior to being seen by health care provider (principal)
CPT/HCPCS: 93005; 99281

== ENCOUNTER 2019-04-26 20:49 | Emergency (ER) | payer OTHER ==
--- OUTSIDE RECORDS SUMMARY | 2019-04-26 20:52 | XMS REPORT ---
:1955 [facility] Address [address] [place] [address] Dr. Alexis [address] [place] [id number] Care Team Providers Name Role Phone DO PORSHA STREETER Unavailable Unavailable Problems This patient has no [...] detected (qualifier value) Not Detected URINALYSIS WITH [id number] 10:57:00 Test Item Value Reference Range Comments Color (test code=UCOLR) Dk. Yellow Clarity (test code=UCLAR) Hazy Glucose (test code=UGLUC) NEGATIVE NEGATIVE Bilirubin (test code=UBILI) NEGATIVE NEGATIVE Ketones (test code=UKET) NEGATIVE NEGATIVE Specific [place] (test code=USPGR) 1.025 1.005-1.030 Blood (test code=UBLD) [...]
[2019-04-26 23:55] LABS: Absolute Lymphocytes (CBC) 1.2 K/uL (0.7-4.9); Basophils % 0.5 % (0-1.3); Hematocrit 38.1 % (36.0-45.0); Lymphocytes % 20.9 % (15.3-44.8); MPV 7.9 fL (7.6-11.3); RBC Red Blood Cell Count 4.62 M/uL (3.86-4.86)
[2019-04-26 23:57] LABS: Protime INR 0.96
[2019-04-26] MEDS ORDERED: METHYLPREDNISOLONE 125 MG INJ ONE (23:59)
[2019-04-27] MEDS ORDERED: Levofloxacin 750mg IV 750 MG/150 ML BAG IV ONE
[2019-04-27] MEDS ORDERED: NA CHLORIDE 0.9% 1,000 ML ONE
[2019-04-27] MEDS ORDERED: IPRATROPIUM BROM 0.5MG/2.5ML ONE
[2019-04-27] MEDS ORDERED: FAMOTIDINE 20 MG/2 ML VIAL IV ONE
[2019-04-27] MEDS ORDERED: ALBUTEROL 2.5 MG/3 ML NEB SOL ONE
[2019-04-27 00:17] LABS: ALT/SGPT 43 U/L (12-78); AST/SGOT 31 U/L (15-37); Albumin 3.3 g/dL (3.4-5.0); Alkaline Phosphatase 78 U/L (45-117); BUN Blood Urea Nitrogen 23 mg/dL (7-18); Bicarbonate 30 mmol/L (21-32); Bilirubin Direct < 0.1 mg/dL (0-0.2); Bilirubin Total 0.3 mg/dL (0.2-1.0); Glucose Level 105 mg/dL (74-106); Magnesium 2.3 mg/dL (1.8-2.4); NT PRO-BNP 176 pg/mL (<125); Sodium Level 145 mmol/L (136-145); Troponin (Emerg Dept Use Only) < 0.02 ng/mL (0.0-0.045)
--- NOTE | 2019-04-27 00:20 | ER ---
Nurse's Notes [facility] Name: Marjan Fleming Age: 64 yrs Sex: Female : 1955 Arrival Date: 04/26/2019 Time: 20:52 Bed 18 Private MD: Diagnosis: Cough;Bronchitis, not specified as acute or chronic;Human immunodeficiency virus [HIV] disease;Tobacco abuse counseling;Tobacco use;Chronic obstructive pulmonary disease, unspecified Presentation: 04/26 21:17 Presenting complaint: Patient states: I have had a cough for about 1 week and have been aa1 taking antibiotics and now I have a yeast infection. I have HIV and I was worried I might have pneumonia. Transition of care: patient was not received from another setting of care. Onset of symptoms was March 2019. Risk Assessment: Do you want to hurt yourself or someone else? Patient reports no desire to harm self or others. Initial Sepsis Screen: Does the patient meet any 2 criteria? No. Patient's initial sepsis screen is negative. Does the patient have a suspected source of infection? No. Patient's initial sepsis screen is negative. Care prior to arrival: Medication(s) given: Tylenol. 21:17 Method Of Arrival: Ambulatory aa1 21:17 Acuity: BLAYNE 3 aa1 Historical: - Allergies: 21:20 Bactrim DS; aa1 21:20 Codeine; aa1 21:20 metoclopramide HCl; aa1 21:20 Stadol; aa1 - Home Meds: 21:20 Albuterol Inhl [Active]; Descovy 200-25 mg Oral tab 1 tab once daily [Active]; aa1 Hydralazine Oral [Active]; lisinopril Oral [Active]; Lorazepam Oral [Active]; Metoprolol Tartrate Oral [Active]; Norvasc Oral [Active]; raltegravir Oral [Active]; Trimethoprim-Sulfamethoxazole Oral [Active]; - PMHx: 21:20 Anxiety; Atrial Fib; Bipolar disorder; Chronic pain; COPD; esophageal varices; aa1 Hepatitis; HIV; Hypertension; Migraines; Panic Attacks; - Immunization history:: Adult Immunizations up to date. - Social history:: Smoking status: Patient uses tobacco products, denies chronic smoking, but will smoke occasionally, Patient/guardian denies using alcohol, street drugs. - Ebola Screening: : Patient negative for fever greater than or equal to 101.5 degrees Fahrenheit, and additional compatible Ebola Virus Disease symptoms Patient denies exposure to infectious person Patient denies travel to an Ebola-affected area in the 21 days before illness onset. - Family history:: not pertinent. Screenin:40 Abuse screen: Denies threats or abuse. Denies injuries from another. Nutritional wh screening: No deficits noted. Tuberculosis screening: No symptoms or risk factors identified. Fall Risk None identified. Assessment: 21:39 General: Appears in no apparent distress. Behavior is calm, cooperative, appropriate wh for age. Pain: Denies pain. Neuro: Level of Consciousness is awake, alert, obeys commands, Oriented to person, place, time, situation, Appropriate for age. Cardiovascular: Heart tones S1 S2. Respiratory: Airway is patent Respiratory effort is even, unlabored, Respiratory pattern is regular, symmetrical. Respiratory: Reports cough that is. GI: Abdomen is flat, non-distended. : No signs and/or symptoms were reported regarding the genitourinary system. EENT: Throat is pink. Derm: Skin is intact, Skin is pink, warm \T\ dry. Musculoskeletal: Circulation, motion, and sensation intact. 22:50 Reassessment: Patient appears in no apparent distress at this time. No changes from previously documented assessment. Patient and/or family updated on plan of care and expected duration. Pain level reassessed. Patient is alert, oriented x 3, equal unlabored respirations, skin warm/dry/pink. 04/27 00:02 Reassessment: Patient appears in no apparent distress at this time. No changes from previously documented assessment. Patient and/or family updated on plan of care and expected duration. Pain level reassessed. Patient is alert, oriented x 3, equal unlabored respirations, skin warm/dry/pink. 01:17 Reassessment: Patient appears in no apparent distress at this time. No changes from previously documented assessment. Patient and/or family updated on plan of care and expected duration. Pain level reassessed. Patient is alert, oriented x 3, equal unlabored respirations, skin warm/dry/pink. Patient states feeling better. Patient states symptoms have improved. Vital Signs: 04/26 21:21 BP 147 / 96; Pulse 68; Resp 20; Temp 99.3(O); Pulse Ox 99% ; Weight 93.44 kg; Height 5 aa1 ft. 4 in. (162.56 cm); Pain 9/10; 21:40 BP 152 / 74; Pulse 68; Resp 18; Pulse Ox 95% on R/A; wh 23:00 BP 133 / 71; Pulse 68; Resp 18; Pulse Ox 95% on R/A; wh 12 00:00 BP 174 / 95; Pulse 66; Resp 18; Pulse Ox 100% on R/A; wh 01:00 BP 149 / 91; Pulse 68; Resp 18; Pulse Ox 97% on R/A; wh 12 21:21 Body Mass Index 35.36 (93.44 kg, 162.56 cm) aa1 ED Course: 04/26 20:52 Patient arrived in ED. as 21:18 Triage completed. aa1 21:21 Arm band placed on right wrist. aa1 21:22 Jonny Lloyd is Primary Nurse. 21:40 Patient has correct armband on for positive identification. Bed in low position. Call light in reach. Side rails up X 1. Pulse ox on. NIBP on. 21:59 Justus Kolb MD is Attending Physician. thomas 22:54 Throat Culture Sent. jd3 23:30 Inserted saline lock: 24 gauge in right hand, using aseptic technique. Blood collected. by Tao Urban RN. 23:36 XRAY Chest (1 view) In Process Unspecified. EDMS 04/27 00:19 Moody Sosa MD is Referral Physician. thomas 01:20 No provider procedures requiring assistance completed. IV discontinued, intact, bleeding controlled, No redness/swelling at site. Administered Medications: 00:00 Drug: levofloxacin 750 mg Volume: 150 ml; Route: IVPB; Infused Over: 90 mins; Site: right hand; 01:16 Follow up: Response: No adverse reaction; IV Status: Completed infusion 00:00 Drug: Albuterol - atroVENT (3:1) (2.5 mg - 0.5 mg) 3 ml Route: Nebulizer; 01:16 Follow up: Response: No adverse reaction 00:00 Drug: SOLU-Medrol 125 mg Route: IVP; Site: right hand; 01:16 Follow up: Response: No adverse reaction 00:00 Drug: Pepcid 20 mg Route: IVP; Site: right hand; 01:15 Follow up: Response: No adverse reaction 00:30 Drug: NS 0.9% 1000 ml Route: IV; Rate: 1 bolus; Site: right hand; 01:15 Follow up: IV Status: Completed infusion 00:33 Drug: predniSONE 20 mg Route: PO; 01:16 Follow up: Response: No adverse reaction 00:33 Not Given (Patient Refused): Albuterol 2.5 mg Inhalation once 00:45 Drug: [place] 5 mg-325 mg 1 tabs {Note: Pt states not allergic to [place], she had them wh before.} Route: PO; 01:17 Follow up: Response: No adverse reaction; Pain is decreased; RASS: Alert and Calm (0) Outcome: 00:19 Discharge ordered by MD. gzuman 01:20 Discharged to home ambulatory. 01:20 Condition: stable 01:20 Discharge instructions given to patient, Instructed on discharge instructions, follow up and referral plans. medication usage, POC Demonstrated understanding of instructions, follow-up care, medications, POC Prescriptions given X 4. 01:22 Patient left the ED. Signatures: Dispatcher [employer] EDMS Emely Rutledge RN RN aa1 Justus Kolb MD MD cha Martinez, Amelia as Habalo, Winsy wh Davies, Jonathon, RN RN jd3
--- NOTE | 2019-04-27 00:20 | EDPHYS ---
Physician Documentation [facility] Name: Marjan Fleming Age: 64 yrs Sex: Female : 1955 Arrival Date: 04/26/2019 Time: 20:52 Bed 18 Private MD: ED Physician Justus Kolb HPI: 04/26 22:59 This 64 yrs old Female presents to ER via Ambulatory with complaints of Cough.thomas 22:59 The patient or guardian reports airway noise, cough, difficulty breathing. Onset: The thomas symptoms/episode began/occurred 1 week(s) ago. Severity of symptoms: At their worst the symptoms were mild, moderate, in the emergency department the symptoms are unchanged. Modifying factors: The symptoms are alleviated by nothing, the symptoms are aggravated by exertion, smoke, talking. Associated signs and symptoms: Pertinent positives: fever, sore throat. The patient has experienced similar episodes in the past, a few times. Historical: - Allergies: 21:20 Bactrim DS; aa1 21:20 Codeine; aa1 21:20 metoclopramide HCl; aa1 21:20 Stadol; aa1 - Home Meds: 21:20 Albuterol Inhl [Active]; Descovy 200-25 mg Oral tab 1 tab once daily [Active]; aa1 Hydralazine Oral [Active]; lisinopril Oral [Active]; Lorazepam Oral [Active]; Metoprolol Tartrate Oral [Active]; Norvasc Oral [Active]; raltegravir Oral [Active]; Trimethoprim-Sulfamethoxazole Oral [Active]; - PMHx: 21:20 Anxiety; Atrial Fib; Bipolar disorder; Chronic pain; COPD; esophageal varices; aa1 Hepatitis; HIV; Hypertension; Migraines; Panic Attacks; - Immunization history:: Adult Immunizations up to date. - Social history:: Smoking status: Patient uses tobacco products, denies chronic smoking, but will smoke occasionally, Patient/guardian denies using alcohol, street drugs. - Ebola Screening: : Patient negative for fever greater than or equal to 101.5 degrees Fahrenheit, and additional compatible Ebola Virus Disease symptoms Patient denies exposure to infectious person Patient denies travel to an Ebola-affected area in the 21 days before illness onset. - Family history:: not pertinent. ROS: 22:59 Constitutional: Negative for fever, chills, and weight loss, Eyes: Negative for injury, thomas pain, redness, and discharge, ENT: Negative for injury, pain, and discharge, Neck: Negative for injury, pain, and swelling, Cardiovascular: Negative for chest pain, palpitations, and edema, Abdomen/GI: Negative for abdominal pain, nausea, vomiting, diarrhea, and constipation, Back: Negative for injury and pain, : Negative for injury, bleeding, discharge, and swelling, MS/Extremity: Negative for injury and deformity, Skin: Negative for injury, rash, and discoloration, Neuro: Negative for headache, weakness, numbness, tingling, and seizure, Psych: Negative for depression, anxiety, suicide ideation, homicidal ideation, and hallucinations, Allergy/Immunology: Negative for hives, rash, and allergies, Endocrine: Negative for neck swelling, polydipsia, polyuria, polyphagia, and marked weight changes, Hematologic/Lymphatic: Negative for swollen nodes, abnormal bleeding, and unusual bruising. 22:59 Respiratory: Positive for cough, wheezing, inspiratory, expiratory. Exam: 22:59 Constitutional: This is a well developed, well nourished patient who is awake, alert, thomas and in no acute distress. Head/Face: Normocephalic, atraumatic. Eyes: Pupils equal round and reactive to light, extra-ocular motions intact. Lids and lashes normal. Conjunctiva and sclera are non-icteric and not injected. Cornea within normal limits. Periorbital areas with no swelling, redness, or edema. ENT: Nares patent. No nasal discharge, no septal abnormalities noted. Tympanic membranes are normal and external auditory canals are clear. Oropharynx with no redness, swelling, or masses, exudates, or evidence of obstruction, uvula midline. Mucous membranes moist. Neck: Trachea midline, no thyromegaly or masses palpated, and no cervical lymphadenopathy. Supple, full range of motion without nuchal rigidity, or vertebral point tenderness. No Meningismus. Chest/axilla: Normal chest wall appearance and motion. Nontender with no deformity. No lesions are appreciated. Cardiovascular: Regular rate and rhythm with a normal S1 and S2. No gallops, murmurs, or rubs. Normal PMI, no JVD. No pulse deficits. Abdomen/GI: Soft, non-tender, with normal bowel sounds. No distension or tympany. No guarding or rebound. No evidence of tenderness throughout. Back: No spinal tenderness. No costovertebral tenderness. Full range of motion. Skin: Warm, dry with normal turgor. Normal color with no rashes, no lesions, and no evidence of cellulitis. MS/ Extremity: Pulses equal, no cyanosis. Neurovascular intact. Full, normal range of motion. Neuro: Awake and alert, GCS 15, oriented to person, place, time, and situation. Cranial nerves II-XII grossly intact. Motor strength 5/5 in all extremities. Sensory grossly intact. Cerebellar exam normal. Normal gait. Psych: Awake, alert, with orientation to person, place and time. Behavior, mood, and affect are within normal limits. 22:59 Respiratory: the patient does not display signs of respiratory distress, Respirations: labored breathing, is not present, Breath sounds: bronchial sounds, decreased breath sounds, that are mild, rhonchi, that are moderate, + upper airway congestion. wheezing: inspiratory expiratory Vital Signs: 21:21 BP 147 / 96; Pulse 68; Resp 20; Temp 99.3(O); Pulse Ox 99% ; Weight 93.44 kg; Height 5 aa1 ft. 4 in. (162.56 cm); Pain 9/10; 21:40 BP 152 / 74; Pulse 68; Resp 18; Pulse Ox 95% on R/A; wh 23:00 BP 133 / 71; Pulse 68; Resp 18; Pulse Ox 95% on R/A; 12 00:00 BP 174 / 95; Pulse 66; Resp 18; Pulse Ox 100% on R/A; wh 01:00 BP 149 / 91; Pulse 68; Resp 18; Pulse Ox 97% on R/A; 04/26 21:21 Body Mass Index 35.36 (93.44 kg, 162.56 cm) aa1 MDM: 12 21:59 Patient medically screened. [facility] 23:02 Data reviewed: vital signs, nurses notes, lab test result(s), EKG, radiologic studies, [facility] plain films. 04/26 21:38 Order name: Flu; Complete Time: 23:50 04/26 21:38 Order name: Strep; Complete Time: 23:50 04/26 22:26 Order name: Throat Culture EDDE 04/26 22:59 Order name: Basic Metabolic Panel; Complete Time: 00:18 [facility] 04/26 22:59 Order name: CBC with Diff; Complete Time: 01:16 [facility] 04/26 22:59 Order name: LFT's; Complete Time: 00:18 [facility] 04/26 22:59 Order name: Magnesium; Complete Time: 00:18 [facility] 04/26 22:59 Order name: NT PRO-BNP; Complete Time: 00:18 [facility] 04/26 22:59 Order name: PT-INR; Complete Time: 00:16 [facility] 04/26 22:59 Order name: Troponin (emerg Dept Use Only); Complete Time: 00:18 [facility] 04/26 22:59 Order name: Blood Culture Adult (2) [facility] 04/26 22:59 Order name: Lactate; Complete Time: 00:18 [facility] 04/27 00:48 Order name: CBC Smear Scan; Complete Time: 01:16 EDDE 04/26 22:59 Order name: XRAY Chest (1 view) [facility] 04/26 22:59 Order name: EKG; Complete Time: 23:01 [facility] 04/26 22:59 Order name: Cardiac monitoring; Complete Time: 23:53 [facility] 04/26 22:59 Order name: EKG - Nurse/Tech; Complete Time: 23:53 [facility] 04/26 22:59 Order name: IV Saline Lock; Complete Time: 23:53 [facility] 04/26 22:59 Order name: Labs collected and sent; Complete Time: 23:54 [facility] 04/26 22:59 Order name: O2 Per Protocol; Complete Time: 23:54 [facility] 04/26 22:59 Order name: O2 Sat Monitoring; Complete Time: 23:53 [facility] Administered Medications: 04/27 00:00 Drug: levofloxacin 750 mg Volume: 150 ml; Route: IVPB; Infused Over: 90 mins; Site: right hand; :16 Follow up: Response: No adverse reaction; IV Status: Completed infusion 00:00 Drug: Albuterol - atroVENT (3:1) (2.5 mg - 0.5 mg) 3 ml Route: Nebulizer; :16 Follow up: Response: No adverse reaction 00:00 Drug: SOLU-Medrol 125 mg Route: IVP; Site: right hand; 01:16 Follow up: Response: No adverse reaction 00:00 Drug: Pepcid 20 mg Route: IVP; Site: right hand; 01:15 Follow up: Response: No adverse reaction 00:30 Drug: NS 0.9% 1000 ml Route: IV; Rate: 1 bolus; Site: right hand; 01:15 Follow up: IV Status: Completed infusion 00:33 Drug: predniSONE 20 mg Route: PO; 01:16 Follow up: Response: No adverse reaction 00:33 Not Given (Patient Refused): Albuterol 2.5 mg Inhalation once 00:45 Drug: [place] 5 mg-325 mg 1 tabs {Note: Pt states not allergic to [place], she had them wh before.} Route: PO; 01:17 Follow up: Response: No adverse reaction; Pain is decreased; RASS: Alert and Calm (0) Disposition: 04/27/19 00:19 Discharged to Home. Impression: Cough, Bronchitis, not specified as acute or chronic, Human immunodeficiency virus [HIV] disease, Tobacco abuse counseling, Tobacco use, Chronic obstructive pulmonary disease, unspecified. - Condition is Stable. - Discharge Instructions: Acute Bronchitis, Adult, Chronic Bronchitis, How to Use an Inhaler, Steps to Quit Smoking, Smoking Hazards, Upper Respiratory Infection, Adult, Chronic Obstructive Pulmonary Disease Exacerbation, Upper Respiratory Infection, Adult, [id number], Cough, Adult, [id number], Cough, Adult. - Prescriptions for Levaquin 750 mg Oral Tablet - take 1 tablet by ORAL route once daily for 7 days; 7 tablet. Albuterol Sulfate 2.5 mg /3 mL (0.083 %) Inhalation Solution for Nebulization - inhale 1 unit by NEBULIZATION route every 8 hours As needed; 1 box. Prednisone 20 mg Oral Tablet - take 2 tablet by ORAL route once daily for 5 days; 10 tablet. Albuterol Sulfate 90 mcg/actuation - inhale 1-2 puff by INHALATION route every 4-6 hours; 1 Inhaler. - Medication Reconciliation Form, Thank You Letter, Antibiotic Education, Prescription Opioid Use form. - Follow up: Private Physician; When: 2 - 3 days; Reason: Recheck today's complaints, Continuance of care, Re-evaluation by your physician. Follow up: Moody Sosa; When: 2 - 3 days; Reason: Recheck today's complaints, Re-evaluation by your physician. - Problem is new. - Symptoms have improved. Signatures: Dispatcher [employer] EDMS Emely Rutledge RN RN aa1 Justus Kolb MD MD cha Habalo, Winsy Corrections: (The following items were deleted from the chart) 01:22 00:19 04/27/2019 00:19 Discharged to Home. Impression: Cough; Bronchitis, not specified wh as acute or chronic; Human immunodeficiency virus [HIV] disease; Tobacco abuse counseling; Tobacco use; Chronic obstructive pulmonary disease, unspecified. Condition is Stable. Discharge Instructions: Acute Bronchitis, Adult, Chronic Bronchitis, How to Use an Inhaler, Steps to Quit Smoking, Smoking Hazards, Upper Respiratory Infection, Adult, Chronic Obstructive Pulmonary Disease Exacerbation, Upper Respiratory Infection, Adult, [id number], Cough, Adult, [id number], Cough, Adult. Prescriptions for Levaquin 750 mg Oral Tablet - take 1 tablet by ORAL route once daily for 7 days; 7 tablet, Albuterol Sulfate 2.5 mg /3 mL (0.083 %) Inhalation Solution for Nebulization - inhale 1 unit by NEBULIZATION route every 8 hours As needed; 1 box, Prednisone 20 mg Oral Tablet - take 2 tablet by ORAL route once daily for 5 days; 10 tablet, Albuterol Sulfate 90 mcg/actuation - inhale 1-2 puff by INHALATION route every 4-6 hours; 1 Inhaler. and Forms are Medication Reconciliation Form, Thank You Letter, Antibiotic Education, Prescription Opioid Use. Follow up: Private Physician; When: 2 - 3 days; Reason: Recheck today's complaints, Continuance of care, Re-evaluation by your physician. Follow up: Moody Sosa; When: 2 - 3 days; Reason: Recheck today's complaints, Re-evaluation by your physician. Problem is new. Symptoms have improved. thomas
[2019-04-27 00:48] LABS: Anisocytosis 1+; Blood Morphology Comment NOTED (NOT SEEN); Platelet Estimate ADEQ; Urine White Blood Cell Casts OK
[2019-04-27] MEDS ORDERED: HYDROCODONE/APAP 5/325 MG TAB ONE (00:59)
[2019-04-27] MEDS ORDERED: predniSONE 20 MG TAB ONE (01:04)
[2019-04-27 03:18] VITALS: TEMP 99.3
[2019-04-27 03:22] VITALS: BP 149/91; O2SAT 97
--- NOTE | 2019-04-27 08:30 | RAD REPORT ---
EXAM DESCRIPTION: RAD - Chest Single View - 04/26/2019 11:35 pm CLINICAL HISTORY: Cough;Fever Chest pain. COMPARISON: Chest Pa And Lat (2 Views) dated 04/07/2019; Chest Single View dated 03/09/2019; Chest S anthony View dated 10/22/2018; Chest Single View dated 09/09/2018 FINDINGS: Portable technique limits examination quality. The lungs are grossly clear. The heart is upper limit of normal in size. Small hiatal hernia. Bilater al shoulder arthroplasties present.
--- NOTE | 2019-04-27 08:57 | EKG ---
Test Date: 2019-04-27 Test Time: 00:18:15 Collet Driller: JOSE L MEASUREMENT RESULTS: Intervals: Rate: 65 WI: 186 QRSD: 86 QT: 434 QTc: 451 [place]: P: 12 WI: 186 QRS: 38 T: 45 INTERPRETIVE STATEMENTS: Normal sinus rhythm Nonspecific T wave abnormality Abnormal ECG Compared to ECG 04/24/2019 19:27:21 T-wave abnormality now present Left ventricular hypertrophy no longer present ST (T wave) deviation no longer present Electronically Signed On 04-27-19 08:56:21 [employer] by Rich Grissom
== END 2019-04-27 01:22 | disposition home or self-care (01) ==
LOC: ER 20:49
DX: J40 Bronchitis, not specified as acute or chronic (principal); J44.9 Chronic obstructive pulmonary disease, unspecified; Z21 Asymptomatic human immunodeficiency virus [HIV] infection status; Z71.6 Tobacco abuse counseling; I10 Essential (primary) hypertension; F41.9 Anxiety disorder, unspecified; I48.91 Unspecified atrial fibrillation; Z88.1 Allergy status to other antibiotic agents; Z88.4 Allergy status to anesthetic agent; Z88.5 Allergy status to narcotic agent
CPT/HCPCS: 96365; 93005; 87040 ×2; 87070; 85025; 80048; 36415; 83735; 85610; 80076; 87081; 83605; 84484; 83880; 87804 ×2; 71045; 94640; 96375; 99284; J2930; J7512

== ENCOUNTER 2019-06-17 15:44 | Emergency (ER) | payer OTHER ==
--- OUTSIDE RECORDS SUMMARY | 2019-06-17 15:46 | XMS REPORT ---
:1955 [facility] Address [address] [place] [address] Dr. Alexis [address] [place] [id number] Care Team Providers Name Role Phone SYL [...] detected (qualifier value) Not Detected URINALYSIS WITH [id number] 10:57:00 Test Item Value Reference Range Comments Color (test code=UCOLR) Dk. Yellow Clarity (test code=UCLAR) Hazy Glucose (test code=UGLUC) NEGATIVE NEGATIVE Bilirubin (test code=UBILI) NEGATIVE NEGATIVE Ketones (test code=UKET) NEGATIVE NEGATIVE Specific [place] (test code=USPGR) 1.025 1.005-1.030 Blood (test code=UBLD) [...]
--- OUTSIDE RECORDS SUMMARY | 2019-06-17 15:55 | XMS REPORT | Clinical Summary ---
:1955 Author Organization [facility] - [facility] Address [address] [place] [address] Care Team Providers Name Role Phone Brian Rahman Primary Care Provider Allergies Active Allergy Reactions Severity Noted Date Comments Metoclopramide Unknown - See comments 05/28/2016 Metoclopramide Hcl Anxiety 02/14/2015 Butorphanol Tartrate Hallucinations High 07/06/2010 Sulfamethoxazole Unknown - See comments 04/23/2016 Acetaminophen-Codeine Nausea and/or Vomiting 07/02/2016 Medications Medication Sig Dispensed Refills Start Date End Date Status hydralAZINE Take 25 mg by 0 Active (APRESOLINE) 25 mg mouth daily. tablet lisinopril Take 40 mg by 0 Active (PRINIVIL,ZESTRIL) 40 mouth 2 (two) mg tablet times daily. metoprolol tartrate Take 100 mg by 0 Active (LOPRESSOR) 100 mg mouth 2 (two) tablet times daily. amLODIPine (NORVASC) Take 10 mg by 0 Active 10 mg tablet mouth daily. desonide (TRIDESILON) Apply to affected 60 g 2 06/24/2015 Active 0.05 % ointment area(s) 2 (two) times daily. esomeprazole (NEXIUM) Take 40 mg by 0 Active 40 mg capsule mouth 2 (two) times daily. DESCOVY tablet TAKE ONE TABLET BY 30 tablet 4 10/23/2018 Active MOUTH DAILY emtricitabine-tenofovi Take 1 tablet by 30 tablet 0 10/14/2018 Active r alafen (DESCOVY) mouth daily. tablet raltegravir Take 1 tablet by 60 tablet 0 10/14/2018 Active (ISENTRESS) 400 mg mouth 2 (two) tablet times daily. tiotropium bromide Inhale. 0 01/17/2019 Active (SPIRIVA RESPIMAT) 1.25 mcg/actuation Mist varenicline (CHANTIX Take one 0.5mg tab 1 Package 0 04/18/2019 Active STARTING MONTH BOX) by mouth once 0.5 mg (11)- 1 mg (42) daily for 3 days, tabletIndications: then one 0.5mg tab Smoking addiction twice daily for 4 days, then one 1mg tab twice daily. varenicline (CHANTIX Take 1 tablet by 60 tablet 1 05/15/2019 Active CONTINUING MONTH BOX) mouth 2 (two) 1 mg times daily. tabletIndications: Smoking addiction phentermine 37.5 mg Take 37.5 mg by 0 Active capsule mouth every morning. LORazepam 2 mg Take 1 tablet by 60 tablet 2 04/30/2019 Active tabletIndications: mouth 2 (two) Bipolar 2 disorder times daily as needed (anxiety). SERTraline 100 mg Take 2 tablets by 60 tablet 2 04/30/2019 Active tabletIndications: mouth daily. Recurrent major depressive disorder, in partial remission emtricitabine-tenofovi Take one po daily 30 tablet 5 05/14/2019 Active r alafen (DESCOVY) tabletIndications: Symptomatic HIV infection raltegravir Take 1 tablet by 60 tablet 5 05/14/2019 Active (ISENTRESS) 400 mg mouth 2 (two) tabletIndications: times daily. Symptomatic HIV infection busPIRone 10 mg Take 1 tablet by 60 tablet 0 05/31/2019 Active tabletIndications: mouth 2 (two) Generalized anxiety times daily. 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 Posttraumatic stress disorder 09/27/2012 Human immunodeficiency virus (HIV) disease 11/18/2010 Bipolar 2 disorder 11/18/2010 Chronic hepatitis C 11/18/2010 Hypertension 11/18/2010 Encounters Date Type Specialty Care Team Description 05/10/2019 Refill Infectious Disease Santiago Cardenas PA Refill Request 05/09/2019 Refill Infectious Disease Santiago Cardenas PA Refill Request 04/18/2019 Cost Estimating Engineer Visit Phlebotomy Santiago Cardenas PA Symptomatic HIV [facility]-Lab infection 04/18/2019 Office Visit Infectious Disease Santiago Cardenas PA Symptomatic HIV infection (Primary Dx); Smoking addiction 04/18/2019 Orders Only Doctor Unassigned, [place] 04/11/2019 Refill Infectious Disease Santiago Cardenas PA Refill Request (Descovy) 04/09/2019 Refill Infectious Disease Santiago Cardenas PA Refill Request (ISENTRESS 400 mg tablet) 04/03/2019 Telephone Public Health & Team, [facility] Health HEALTH MAINTENANCE; General Preventive Maintenance PAP SMEAR Medicine 03/27/2019 Telephone Infectious Disease SelfGadiel MD Refill Request; Rx Concern/Question from Last 3 Months Immunizations Name Administration Dates Next Due HEPATITIS A 03/02/2004, 08/01/2003 Hep B, Adol or Pedi Dosage 09/01/2011, 03/17/2011, 02/10/2011 Influenza Virus Vaccine 03/08/2017, 02/16/2012, 02/10/2011 Influenza Virus Vaccine (3+ yrs) 01/30/2014 PPD (TB) 02/16/2012, 11/18/2010, 10/04/2001 Pneumococcal 13 Conjugate, PCV13 (Prevnar 01/30/2014 13) Pneumococcal Polysaccharide, PPSV23 02/16/2012, 10/04/2001 (PNEUMOVAX) TDAP (ADACEL) VACCINE 11/18/2010 Family History Medical History Relation Name Comments Diabetes Father Other - see comments Father ESRD Coronary Heart Disease Father [place], late 60s? Cancer Mother leukemia Relation Name Status Comments Father stroke or CA Father Father Father Mother Mother Social History Tobacco Use Types Packs/Day Years Used Date Current Some Day Smoker Cigarettes 41 Quit: 09/29/2011 Smokeless Tobacco: Former User Quit: 09/29/2011 Tobacco Cessation: Ready to Quit: Yes; Counseling Given: Yes Comments: Smokes approx 1-2 cigarettes per day when she smokes Alcohol Use Drinks/Week oz/Week Comments No 0 Standard drinks or equivalent 0.0 Sex Assigned at Date Recorded Not on file Job Start Date Occupation Industry Not on file Not on file Not on file Travel History Travel Start Travel End No recent travel history available. Last Filed Vital Signs Vital Sign Reading Time Taken Comments Blood Pressure 124/75 04/30/2019 8:45 AM SECURITY ROVER Pulse 61 04/30/2019 8:45 AM SECURITY ROVER Temperature 36.3 C (97.3 F) 04/18/2019 8:31 AM SECURITY ROVER Respiratory Rate 18 04/30/2019 8:45 AM SECURITY ROVER Oxygen Saturation 98% 06/27/2016 11:12 AM SECURITY ROVER Inhaled Oxygen Concentration - - Weight 92.5 kg (204 lb) 04/30/2019 8:45 AM SECURITY ROVER Height 162.6 cm (5' 4") 04/30/2019 8:45 AM SECURITY ROVER Body Mass Index 35.02 04/30/2019 8:45 AM SECURITY ROVER Plan of Treatment Date Type Specialty Care Team Description 10/17/2019 Office Visit Infectious Disease [place] PA [address] [facility] [id number] [place] [address] [phone] Health Maintenance Due Date Last Done Comments Breast Cancer Screening 1996 (MAMMOGRAM) COLONOSCOPY 01/22/2006 Zoster Recombinant Vaccine 01/22/2006 (SHINGRIX) (1 of 2) PAP SMEAR 07/31/2006 08/01/2003 LUNG CANCER SCREEN: 01/22/2011 Recommended for age 55-80 with 30 + pack year history INFLUENZA VACCINE (#1) 2020 03/08/2017, 01/30/2014, Postponed from 02/16/2012, Additional 01/21/2019 (Refused) history exists DTaP,Tdap,and Td Vaccines 11/18/2020 11/18/2010 (2 - Td) HEPATITIS C (HCV) SCREEN Completed 07/06/2010 PNEUMOCOCCAL 0-64 YEARS Completed 01/30/2014, 02/16/2012, COMBINED SERIES 10/04/2001 Implants Implanted Type Area Broom Man Device Shelf Model / Identifier Expiration Serial / Lot Date Central Screw SHOULDER Left: Biomet 03/23/2024 [id number] / Implanted: Qty: 1 on 02/17/2015 by Roland Lafleur MD at [facility] Shoulder [id number] / [id number] Mini Humeral Stem SHOULDER Left: Biomet 07/31/2024 [id number] / Implanted: Qty: 1 on 02/17/2015 by Roland Lafleur MD at [facility] Shoulder [id number] / [id number] Fixed Locking Screw SHOULDER Left: Biomet 12/11/2024 [id number] / Implanted: Qty: 1 on 02/17/2015 by Roland Lafleur MD at [facility] Shoulder [id number] / [id number] Glenosphere SHOULDER Left: Biomet 12/05/2024 [id number] / Implanted: Qty: 1 on 02/17/2015 by Roland Lafleur MD at [facility] Shoulder [id number] / [id number] Fixed Locking Screw SHOULDER Left: Biomet 12/30/2024 [id number] / Implanted: Qty: 1 on 02/17/2015 by Roland Lafleur MD at [facility] Shoulder [id number] / [id number] Fixed Locking Screw SHOULDER Left: Biomet 12/31/2024 [id number] / Implanted: Qty: 1 on 02/17/2015 by Roland Lafleur MD at [facility] Shoulder [id number] / [id number] Humeral Tray With Locking Ring SHOULDER Left: Biomet 12/16/2024 [id number] / Implanted: Qty: 1 on 02/17/2015 by Roland Lafleur MD at [facility] Shoulder [id number] / [id number] Glensphere Mini Baseplate SHOULDER Left: Biomet 02/04/2025 [id number] / Implanted: Qty: 1 on 02/17/2015 by Roland Lafleur MD at [facility] Shoulder [id number] / [id number] Humeral Bearing SHOULDER Left: Biomet 12/12/2019 [id number] / Implanted: Qty: 1 on 02/17/2015 by Roland Lafleur MD at [facility] Shoulder [id number] / [id number] Fixed Locking Scew SHOULDER Left: Biomet 12/11/2024 [id number] / Implanted: Qty: 1 on 02/17/2015 by Roland Lafleur MD at [facility] Shoulder [id number] / [id number] Procedures Procedure Name Priority Date/Time Associated Comments Diagnosis CBC WITH DIFFERENTIAL Routine 04/18/2019 10:10 Symptomatic HIV Results for this AM SECURITY ROVER infection procedure are in the results section. CBC WITH DIFFERENTIAL Routine 04/18/2019 10:10 Symptomatic HIV Results for this AM SECURITY ROVER infection procedure are in the results section. CD4 SUBSET ASSAY Routine 04/18/2019 10:10 Symptomatic HIV Results for this AM SECURITY ROVER infection procedure are in the results section. HIV1 BY REAL-TIME PCR Routine 04/18/2019 10:10 Symptomatic HIV Results for this QUANT AM SECURITY ROVER infection procedure are in the results section. [facility] PATIENT FINANCIAL Routine 04/18/2019 8:27 POLICY AM SECURITY ROVER NO SHOW OR MISSED Routine 04/18/2019 8:27 APPOINTMENT POLICY AM SECURITY ROVER ACKNOWLEDGEMENT NOTICE OF PRIVACY Routine 04/18/2019 8:27 PRACTICES AM SECURITY ROVER CONSENT/REFUSAL FOR Routine 04/18/2019 8:26 DIAGNOSIS AND TREATMENT AM SECURITY ROVER ASSIGNMENT OF BENEFITS Routine 04/18/2019 8:26 AM SECURITY ROVER from Last 3 Months Results CBC WITH DIFFERENTIAL (04/18/2019 10:10 AM SECURITY ROVER) WBC 7.75 4.30 - 11.10 [facility] 10*3/L SERVICES RBC 4.66 3.93 - 5.25 [facility] 10*6/L SERVICES HGB 12.0 11.6 - 15.0 [facility] g/dL SERVICES HCT 39.5 35.7 - 45.2 % [facility] SERVICES MCV 84.8 80.6 - 95.5 fL [facility] MCH 25.8 (L) 25.9 - 32.8 pg [facility] SERVICES MCHC 30.4 (L) 31.6 - 35.1 [facility] g/dL SERVICES RDW-SD 62.6 (H) 39.0 - 49.9 fL [facility] SERVICES RDW-CV 20.6 (H) 12.0 - 15.5 % [facility] PLT 230 166 - 358 [facility] 10*3/L SERVICES MPV 10.3 9.5 - 12.9 fL [facility] SERVICES NRBC/100 WBC 0.0 0.0 - 10.0 /100 [facility] WBCs SERVICES NRBC x10^3 <0.01 10*3/L [facility] SERVICES GRAN MAT (NEUT) % 71.3 % [facility] IMM GRAN % 0.80 % [facility] LYMPH % 19.4 % [facility] MONO % 7.2 % [facility] EOS % 0.9 % [facility] BASO % 0.4 % [facility]ORATORY SERVICES GRAN MAT x10^3(ANC) 5.53 1.88 - 7.09 [facility] 10*3/uL SERVICES IMM GRAN x10^3 0.06 0.00 - 0.06 [facility] 10*3/uL SERVICES LYMPH x10^3 1.50 1.32 - 3.29 [facility] 10*3/uL SERVICES MONO x10^3 0.56 0.33 - 0.92 [facility] 10*3/uL SERVICES EOS x10^3 0.07 0.03 - 0.39 [facility] 10*3/uL SERVICES BASO x10^3 0.03 0.01 - 0.07 [facility] 10*3/uL SERVICES Specimen Blood Performing Organization Address City/[facility] Phone Number [facility]ORATORY SERVICES CLIA: [id number], [address] [place] [phone] [facility] HIV1 BY REAL-TIME PCR QUANT (04/18/2019 10:10 AM SECURITY ROVER) HIV 1 by Real-Time Not Detected Not Detected [facility] LABORATORY PCR SERVICES Specimen Blood Narrative Performed At HIV-1 Real-Time PCR [facility] SERVICES Interpretative data: Yates m2000 Real Time HIV-1 reverse apiarist-polymerase chain reaction (RT-PCR) assay is used. It is FDA approved for plasma samples to measure HIV-1 RNA for use as an aid in the management of HIV-1 infected individuals. The FDA approved dynamic range of this test is 40 to 10,000,000 copies/mL (1.60-7.00 Log copies/mL). Assay results are reported in copies/mL; 1 copy=1.74 IU (International Units). Sample input volume is 0.6 mL. Result Interpretation: Not Detected: Target not detected (not the same as negative); <40 copies/mL: Detected (but not quantifiable); 40-10,000,000 copies/mL >10,000,000 copies/mL; > upper limit of quantification. Performing Organization Address [facility] Phone Number [facility]ORY SERVICES CLIA: [id number], [address] [place] [phone] [facility] CD4 SUBSET ASSAY (04/18/2019 10:10 AM SECURITY ROVER) CD4 % 37 31 - 60 % [facility] SERVICES CD4 Absolute 533 410-1,590 Cells/L [facility]ORATORY SERVICES Specimen Blood Performing Organization Address City/State/Zipcode Phone Number [facility]ATORY SERVICES CLIA: [id number], [address] [place] [address] [facility] PATIENT FINANCIAL POLICY (04/18/2019 8:27 AM SECURITY ROVER) Specimen Performing Organization Address City/State/Zipcode Phone Number HIM NO SHOW OR MISSED APPOINTMENT POLICY ACKNOWLEDGEMENT (04/18/2019 8:27 AM SECURITY ROVER) Specimen Performing Organization Address City/State/Zipcode Phone Number HIM NOTICE OF PRIVACY PRACTICES (04/18/2019 8:27 AM SECURITY ROVER) Specimen Performing Organization Address City/State/Zipcode Phone Number HIM CONSENT/REFUSAL FOR DIAGNOSIS AND TREATMENT (04/18/2019 8:26 AM SECURITY ROVER) Specimen Performing Organization Address City/State/Zipcode Phone Number HIM ASSIGNMENT OF BENEFITS (04/18/2019 8:26 AM SECURITY ROVER) Specimen Performing Organization Address City/State/Zipcode Phone Number HIM from Last 3 Months Insurance Payer Benefit Plan / Subscriber ID Effective Phone Address Type Group Dates OPTUMHEALTH OPTUMHEALTH [id number] 2018-Pre P O BOX [facility] sent [id number] [place] [address] [facility] MEDICAID OF xxxxxxxxx 2011-Pre [phone] O BOX Medicaid [place] sent [id number] [place] [address] AETNA - MANAGED AETNA MEDICARE [id number] 2019-Pre P O BOX Medicare Adv MEDICARE ADV sent [id number] [place] [address] [phone] [address] [address] [place] [address] [facility] Self 1955 [phone] [address] ([address] [place] [address] Advance Directives Type Date Recorded Patient Down Filler Explanation Advance Directives and Living 01/20/2015 9:28 AM Will Power of Supervisor Vegetable Farming 01/20/2015 9:28 AM
--- OUTSIDE RECORDS SUMMARY | 2019-06-17 15:55 | XMS REPORT | Clinical Summary ---
:1955 Author Organization [facility] - [facility] Address [address] [place] [address] Care Team Providers Name Role Phone Brian [...] Disease Santiago Cardenas PA Refill Request 04/18/2019 Scale Balancer Visit Phlebotomy Santiago Cardenas PA Symptomatic HIV [facility]-Lab infection 04/18/2019 Office Visit Infectious Disease Santiago Cardenas PA Symptomatic HIV infection (Primary Dx); Smoking addiction 04/18/2019 Orders Only Doctor Unassigned, [place] 04/11/2019 Refill Infectious Disease Santiago Cardenas PA Refill Request (Descovy) 04/09/2019 Refill Infectious Disease Santiago Cardenas PA Refill Request (ISENTRESS 400 mg tablet) 04/03/2019 Telephone Public Health & Team, [facility] Health HEALTH MAINTENANCE; General Preventive Maintenance PAP [...] comments Father ESRD Coronary Heart Disease Father [place], late 60s? Cancer Mother leukemia Relation Name Status Comments Father stroke or [place] Father Father Father Mother Mother Social History [...] Comments Blood Pressure 124/75 04/30/2019 8:45 AM ASSISTIVE TECHNOLOGY TRAINER Pulse 61 04/30/2019 8:45 AM ASSISTIVE TECHNOLOGY TRAINER Temperature 36.3 C (97.3 F) 04/18/2019 8:31 AM ASSISTIVE TECHNOLOGY TRAINER Respiratory Rate 18 04/30/2019 8:45 AM ASSISTIVE TECHNOLOGY TRAINER Oxygen Saturation 98% 06/27/2016 11:12 AM ASSISTIVE TECHNOLOGY TRAINER Inhaled Oxygen Concentration - - Weight 92.5 kg (204 lb) 04/30/2019 8:45 AM ASSISTIVE TECHNOLOGY TRAINER Height 162.6 cm (5' 4") 04/30/2019 8:45 AM ASSISTIVE TECHNOLOGY TRAINER Body Mass Index 35.02 04/30/2019 8:45 AM ASSISTIVE TECHNOLOGY TRAINER Plan of Treatment Date Type Specialty Care Team Description 10/17/2019 Office Visit Infectious Disease [place] PA [address] [facility] [id number] [place] [address] [phone] Health Maintenance Due Date Last Done Comments [...] COMBINED SERIES 10/04/2001 Implants Implanted Type Area Hot Baller Device Shelf Model / Identifier Expiration Serial / Lot Date Central Screw SHOULDER Left: Biomet 03/23/2024 [id number] / Implanted: Qty: 1 on 02/17/2015 by Roland Lafleur MD at [facility] Shoulder [id number] / [id number] Mini Humeral Stem SHOULDER Left: Biomet 07/31/2024 [id number] / Implanted: Qty: 1 on 02/17/2015 by Roland Lafleur MD at [facility] Shoulder [id number] / [id number] Fixed Locking Screw SHOULDER Left: Biomet 12/11/2024 [id number] / Implanted: Qty: 1 on 02/17/2015 by Roland Lafleur MD at [facility] Shoulder [id number] / [id number] Glenosphere SHOULDER Left: Biomet 12/05/2024 [id number] / Implanted: Qty: 1 on 02/17/2015 by Roland Lafleur MD at [facility] Shoulder [id number] / [id number] Fixed Locking Screw SHOULDER Left: Biomet 12/30/2024 [id number] / Implanted: Qty: 1 on 02/17/2015 by Roland Lafleur MD at [facility] Shoulder [id number] / [id number] Fixed Locking Screw SHOULDER Left: Biomet 12/31/2024 [id number] / Implanted: Qty: 1 on 02/17/2015 by Roland Lafleur MD at [facility] Shoulder [id number] / [id number] Humeral Tray With Locking Ring SHOULDER Left: Biomet 12/16/2024 [id number] / Implanted: Qty: 1 on 02/17/2015 by Roland Lafleur MD at [facility] Shoulder [id number] / [id number] Glensphere Mini Baseplate SHOULDER Left: Biomet 02/04/2025 [id number] / Implanted: Qty: 1 on 02/17/2015 by Roland Lafleur MD at [facility] Shoulder [id number] / [id number] Humeral Bearing SHOULDER Left: Biomet 12/12/2019 [id number] / Implanted: Qty: 1 on 02/17/2015 by Roland Lafleur MD at [facility] Shoulder [id number] / [id number] Fixed Locking Scew SHOULDER Left: Biomet 12/11/2024 [id number] / Implanted: Qty: 1 on 02/17/2015 by Roland Lafleur MD at [facility] Shoulder [id number] / [id number] Procedures Procedure Name Priority Date/Time Associated Comments Diagnosis CBC WITH DIFFERENTIAL Routine 04/18/2019 10:10 Symptomatic HIV Results for this AM ASSISTIVE TECHNOLOGY TRAINER infection procedure are in the results section. CBC WITH DIFFERENTIAL Routine 04/18/2019 10:10 Symptomatic HIV Results for this AM ASSISTIVE TECHNOLOGY TRAINER infection procedure are in the results section. CD4 SUBSET ASSAY Routine 04/18/2019 10:10 Symptomatic HIV Results for this AM ASSISTIVE TECHNOLOGY TRAINER infection procedure are in the results section. HIV1 BY REAL-TIME PCR Routine 04/18/2019 10:10 Symptomatic HIV Results for this QUANT AM ASSISTIVE TECHNOLOGY TRAINER infection procedure are in the results section. [facility] PATIENT FINANCIAL Routine 04/18/2019 8:27 POLICY AM ASSISTIVE TECHNOLOGY TRAINER NO SHOW OR MISSED Routine 04/18/2019 8:27 APPOINTMENT POLICY AM ASSISTIVE TECHNOLOGY TRAINER ACKNOWLEDGEMENT NOTICE OF PRIVACY Routine 04/18/2019 8:27 PRACTICES AM ASSISTIVE TECHNOLOGY TRAINER CONSENT/REFUSAL FOR Routine 04/18/2019 8:26 DIAGNOSIS AND TREATMENT AM ASSISTIVE TECHNOLOGY TRAINER ASSIGNMENT OF BENEFITS Routine 04/18/2019 8:26 AM ASSISTIVE TECHNOLOGY TRAINER from Last 3 Months Results CBC WITH DIFFERENTIAL (04/18/2019 10:10 AM ASSISTIVE TECHNOLOGY TRAINER) WBC 7.75 4.30 - 11.10 [facility] [...] [facility] EOS % 0.9 % [facility] BASO % 0.4 % [facility] SERVICES GRAN MAT x10^3(ANC) 5.53 1.88 - 7.09 [facility] 10*3/uL SERVICES IMM GRAN x10^3 0.06 0.00 - 0.06 [facility] 10*3/uL SERVICES LYMPH x10^3 1.50 1.32 - 3.29 [facility] 10*3/uL SERVICES MONO x10^3 0.56 0.33 - 0.92 [facility] 10*3/uL SERVICES EOS x10^3 0.07 0.03 - 0.39 [facility] 10*3/uL SERVICES BASO x10^3 0.03 0.01 - 0.07 [facility] 10*3/uL SERVICES Specimen Blood Performing Organization Address City/[facility] Phone Number [facility] CLIA: [id number], [address] [place] [address] [phone] [facility] HIV1 BY REAL-TIME PCR QUANT (04/18/2019 10:10 AM ASSISTIVE TECHNOLOGY TRAINER) HIV 1 by Real-Time Not Detected Not Detected [facility]ORAT[facility] PCR SERVICES Specimen Blood Narrative Performed At HIV-1 Real-Time PCR [facility] Interpretative data: Yates m2000 Real Time HIV-1 reverse feed blender-polymerase chain reaction (RT-PCR) assay is used. It [...] upper limit of quantification. Performing Organization Address [facility] Phone Number [facility] CLIA: [id number], [address] [place] [address] [phone] [facility] CD4 SUBSET ASSAY (04/18/2019 10:10 AM ASSISTIVE TECHNOLOGY TRAINER) CD4 % 37 31 - 60 % [facility] CD4 Absolute 533 410-1,590 Cells/L [facility] Specimen Blood Performing Organization Address City/State/Zipcode Phone Number [facility] CLIA: [id number], [address] [place] [address] [phone] [facility] PATIENT FINANCIAL POLICY (04/18/2019 8:27 AM ASSISTIVE TECHNOLOGY TRAINER) Specimen Performing Organization Address City/State/Zipcode Phone Number HIM NO SHOW OR MISSED APPOINTMENT POLICY ACKNOWLEDGEMENT (04/18/2019 8:27 AM ASSISTIVE TECHNOLOGY TRAINER) Specimen Performing Organization Address City/State/Zipcode Phone Number HIM NOTICE OF PRIVACY PRACTICES (04/18/2019 8:27 AM ASSISTIVE TECHNOLOGY TRAINER) Specimen Performing Organization Address City/State/Zipcode Phone Number HIM CONSENT/REFUSAL FOR DIAGNOSIS AND TREATMENT (04/18/2019 8:26 AM ASSISTIVE TECHNOLOGY TRAINER) Specimen Performing Organization Address City/State/Zipcode Phone Number HIM ASSIGNMENT OF BENEFITS (04/18/2019 8:26 AM ASSISTIVE TECHNOLOGY TRAINER) Specimen Performing Organization Address City/State/Zipcode Phone Number HIM from Last 3 Months Insurance Payer Benefit Plan / Subscriber ID Effective Phone Address Type Group Dates [employer] OPTUMHEALTH [id number] 2018-Pre P O BOX [facility] sent [id number] [place] [address] [facility] MEDICAID OF xxxxxxxxx 2011-Pre [phone] O BOX Medicaid [place] sent [id number] [place] [address] AETNA - MANAGED AETNA MEDICARE [id number] 2019-Pre P O BOX Medicare Adv MEDICARE ADV sent [id number] [place] [address] [phone] [address] [address] [place] [address] [facility] Self 1955 [phone] [address] ([address] [place] [address] Advance Directives Type Date Recorded Patient Medical Director Occupational Health Explanation Advance Directives and Living 01/20/2015 9:28 AM Will Power of Croze Machine Operator 01/20/2015 9:28 AM
[2019-06-17] MEDS ORDERED: ONDANSETRON 4 MG/2 ML VIAL ONE (16:39)
[2019-06-17] MEDS ORDERED: NA CHLORIDE 0.9% 1,000 ML ONE (16:39)
[2019-06-17] MEDS ORDERED: MORPHINE 4 MG/ML SYR ONE ×2 (16:39→17:19)
[2019-06-17 16:53] LABS: Protime INR 1.05
[2019-06-17 16:55] LABS: Basophils % 0.4 % (0-1.3); Hematocrit 40.1 % (36.0-45.0); Lymphocytes % 7.6 % (15.3-44.8); MPV 7.8 fL (7.6-11.3); RBC Red Blood Cell Count 4.78 M/uL (3.86-4.86)
--- NOTE | 2019-06-17 17:11 | RAD REPORT ---
EXAM DESCRIPTION: Patrick Single View06/17/2019 4:17 pm CLINICAL HISTORY: Chest pain COMPARISON: April 2019 FINDINGS: Medial right hilum is mildly hazy. Remainder lungs appear clear of acute infiltrate. Heart is normal size. A moderate hiatal hernia is noted IMPRESSION: Medial right hilum is mildly hazy. This could represent a mild infiltrate or confluence of vascular structures and rib. If clinically indicated further evaluation with PA and lateral chest series could be obtained
[2019-06-17 17:13] LABS: ALT/SGPT 48 U/L (12-78); AST/SGOT 39 U/L (15-37); Albumin 3.6 g/dL (3.4-5.0); Alkaline Phosphatase 84 U/L (45-117); BUN Blood Urea Nitrogen 21 mg/dL (7-18); Bicarbonate 29 mmol/L (21-32); Bilirubin Direct 0.1 mg/dL (0-0.2); Bilirubin Total 0.4 mg/dL (0.2-1.0); Glucose Level 114 mg/dL (74-106); Magnesium 1.9 mg/dL (1.8-2.4); NT PRO-BNP 366 pg/mL (<125); Protein, Total 7.6 g/dL (6.4-8.2); Sodium Level 137 mmol/L (136-145); Troponin (Emerg Dept Use Only) < 0.02 ng/mL (0.0-0.045)
[2019-06-17] MEDS ORDERED: MORPHINE 2 MG/ML SYR ONE (18:23)
--- NOTE | 2019-06-17 19:34 | EDPHYS ---
Physician Documentation [facility] Name: Marjan Fleming Age: 64 yrs Sex: Female : 1955 Arrival Date: 06/17/2019 Time: 15:46 Bed 20 Private MD: ED Physician Joey Jung HPI: 06/17 16:18 This 64 yrs old Female presents to ER via Ambulatory with complaints of Chest pm1 Pain. 16:18 The patient or guardian reports chest pain that is located primarily in the mid-sternal pm1 area. Onset: 1 hour(s) ago. The pain radiates to left neck. Associated signs and symptoms: Pertinent positives: palpitations, Pertinent negatives: abdominal pain, cough, nausea, shortness of breath, vomiting. The chest pain is described as sharp. Duration: The patient or guardian reports a single episode, that is still ongoing. Modifying factors: the symptoms are aggravated by Taking additional dose of her phentermine to increase her weight loss. Took extra 1/2 tablet today around 1200. Severity of pain: in the emergency department the pain is unchanged. Historical: - Allergies: 16:03 Bactrim DS; ss 16:03 Codeine; ss 16:03 metoclopramide HCl; ss 16:03 Stadol; ss - PMHx: 16:03 Anxiety; Bipolar disorder; Atrial Fib; Chronic pain; COPD; esophageal varices; ss Hepatitis; Hypertension; HIV; Migraines; Panic Attacks; - Immunization history:: Adult Immunizations up to date. - Coronavirus screen:: The patient has NOT traveled to [place], [place], or [place] in the past 14 days. Proceed with normal triage process as indicated. - Social history:: Smoking status: Patient denies any tobacco usage or history of. - Ebola Screening: : Patient denies exposure to infectious person Patient denies travel to an Ebola-affected area in the 21 days before illness onset. ROS: 16:18 Constitutional: Negative for fever, chills, and weight loss. pm1 16:18 Respiratory: Negative for shortness of breath, cough, wheezing, and pleuritic chest pain, Abdomen/GI: Negative for abdominal pain, nausea, vomiting, diarrhea, and constipation, Back: Negative for injury and pain, MS/Extremity: Negative for injury and deformity, Skin: Negative for injury, rash, and discoloration. 16:18 Neuro: Negative for headache, weakness, numbness, tingling, and seizure. 16:18 Neck: Positive for pain at rest, of the left side of neck, Negative for stiffness. 16:18 Cardiovascular: Positive for chest pain, palpitations, Negative for edema, orthopnea. Exam: 16:18 Constitutional: This is a well developed, well nourished patient who is awake, alert, pm1 and in no acute distress. Head/Face: Normocephalic, atraumatic. 16:18 Cardiovascular: Regular rate and rhythm with a normal S1 and S2. No gallops, murmurs, or rubs. Normal PMI, no JVD. No pulse deficits. Respiratory: Lungs have equal breath sounds bilaterally, clear to auscultation and percussion. No rales, rhonchi or wheezes noted. No increased work of breathing, no retractions or nasal flaring. Abdomen/GI: Soft, non-tender, with normal bowel sounds. No distension or tympany. No guarding or rebound. No evidence of tenderness throughout. Back: No spinal tenderness. No costovertebral tenderness. Full range of motion. Skin: Warm, dry with normal turgor. Normal color with no rashes, no lesions, and no evidence of cellulitis. MS/ Extremity: Pulses equal, no cyanosis. Neurovascular intact. Full, normal range of motion. 16:18 Neck: External neck: tenderness, of the left lateral aspect of neck and left anterior aspect of neck. 16:18 Chest/axilla: Inspection: normal, Palpation: tenderness, of the anterior aspect of right upper chest, anterior aspect of left upper chest and mid-sternal area, that totally reproduces the patient's complaints. 16:18 Neuro: Orientation: is normal, Motor: is normal, moves all fours. Vital Signs: 16:00 BP 174 / 102; Pulse 85; Resp 23; Temp 98.5(TE); Pulse Ox 98% on R/A; Weight 93.44 kg; ss Height 5 ft. 4 in. (162.56 cm); Pain 10/10; 17:07 BP 183 / 104; Pulse 84; Resp 26; Pulse Ox 99% on 2 lpm NC; ph 18:32 BP 194 / 92; Pulse 85; Resp 20; Temp 98.9(O); Pulse Ox 96% on 2 lpm NC; mh5 19:17 BP 146 / 88; Pulse 88; Resp 18; Pulse Ox 94% on R/A; wh 16:00 Body Mass Index 35.36 (93.44 kg, 162.56 cm) ss MDM: 16:00 Patient medically screened. pm1 16:22 Data reviewed: vital signs. Data interpreted: Pulse oximetry: on room air is 98 %. pm1 Interpretation: normal. 18:09 Refusal of service: The patient/guardian displays adequate decision making capability pm1 and despite a detailed discussion of alternatives, benefits, risks, and consequences refuses: 2 view chest xray. 19:18 Counseling: I had a detailed discussion with the patient and/or guardian regarding: the pm1 historical points, exam findings, and any diagnostic results supporting the discharge/admit diagnosis. 19:18 Counseling: I had a detailed discussion with the patient and/or guardian regarding: lab pm1 results, radiology results, the need for outpatient follow up, compliance with taking medications as prescribed by your physicians. 06/17 16:04 Order name: Basic Metabolic Panel; Complete Time: 17:14 pm06/17 16:04 Order name: CBC with Diff; Complete Time: 04:54 pm1 06/17 16:04 Order name: LFT's; Complete Time: 17:14 pm06/17 16:04 Order name: Magnesium; Complete Time: 17:14 pm06/17 16:04 Order name: NT PRO-BNP; Complete Time: 17:14 pm06/17 16:04 Order name: PT-INR; Complete Time: 17:11 pm06/17 16:04 Order name: Troponin (emerg Dept Use Only); Complete Time: 17:14 pm06/17 16:04 Order name: XRAY Chest (1 view); Complete Time: 17:12 pm06/17 17:04 Order name: CBC Smear Scan; Complete Time: 04:54 EDMS 06/17 16:04 Order name: EKG; Complete Time: 16:05 pm06/17 16:04 Order name: Cardiac monitoring; Complete Time: 16:47 pm06/17 16:04 Order name: EKG - Nurse/Tech; Complete Time: 16:47 pm06/17 16:04 Order name: IV Saline Lock; Complete Time: 16:47 pm1 06/17 16:04 Order name: Labs collected and sent; Complete Time: 16:47 pm1 06/17 16:04 Order name: O2 Per Protocol; Complete Time: 16:48 pm1 06/17 16:04 Order name: O2 Sat Monitoring; Complete Time: 16:48 pm1 Administered Medications: 16:46 Drug: NS 0.9% 1000 ml Route: IV; Rate: 1000 ml; Site: left upper arm; ss 19:11 Follow up: Response: No adverse reaction; IV Status: Completed infusion ph 16:47 Drug: morphine 4 mg Route: IVP; Site: left upper arm; ss 17:00 Follow up: Response: No adverse reaction; Pain is unchanged, physician notified ph 16:47 Drug: Zofran 4 mg Route: IVP; Site: left upper arm; ss 19:11 Follow up: Response: No adverse reaction; Nausea is decreased ph 17:28 Drug: morphine 4 mg Route: IVP; Site: left upper arm; ph 19:11 Follow up: Response: No adverse reaction ph 18:30 Drug: morphine 2 mg Route: IVP; Site: left upper arm; ph 19:12 Follow up: Response: No adverse reaction; Pain is decreased ph Disposition: 21:10 Co-signature as Attending Physician, Joey Jung MD I agree with the assessment and kdr plan of care. Disposition: 06/17/19 19:34 Discharged to Home. Impression: Poisoning by unspecified drugs, medicaments and biological substances, accidental (unintentional) - Overdose on phentermine, Chest pain, unspecified. - Condition is Stable. - Discharge Instructions: Nonspecific Chest Pain, Accidental Overdose. - Medication Reconciliation Form, Thank You Letter, Antibiotic Education, Prescription Opioid Use form. - Follow up: Emergency Department; When: As needed; Reason: Worsening of condition. Follow up: Private Physician; When: 2 - 3 days; Reason: Recheck today's complaints, Continuance of care, Re-evaluation by your physician. - Problem is new. - Symptoms have improved. Signatures: Dispatcher [employer] EDMS Joey Jung MD MD kdr Nieto, Roman, MD MD rn Smirch, Shelby, RN RN ss Solange Bennett RN RN ph Austin Raza, TELECOMMUNICATIONS CABLE JOINTER TELECOMMUNICATIONS CABLE JOINTER pm1 Jonny Lloyd Corrections: (The following items were deleted from the chart) 18:11 17:37 Chest Pa And Lat (2 Views)+RAD.RAD.BRZ ordered. EDMO EDMS 19:44 19:34 06/17/2019 19:34 Discharged to Home. Impression: Poisoning by unspecified drugs, wh medicaments and biological substances, accidental (unintentional) - Overdose on phentermine; Chest pain, unspecified. Condition is Stable. Forms are Medication Reconciliation Form, Thank You Letter, Antibiotic Education, Prescription Opioid Use. Follow up: Emergency Department; When: As needed; Reason: Worsening of condition. Follow up: Private Physician; When: 2 - 3 days; Reason: Recheck today's complaints, Continuance of care, Re-evaluation by your physician. Problem is new. Symptoms have improved. pm1
--- NOTE | 2019-06-17 19:34 | ER ---
Nurse's Notes [facility] Name: Marjan Fleming Age: 64 yrs Sex: Female : 1955 Arrival Date: 06/17/2019 Time: 15:46 Bed 20 Private MD: Diagnosis: Poisoning by unspecified drugs, medicaments and biological substances, accidental (unintentional)-Overdose on phentermine;Chest pain, unspecified Presentation: 06/17 16:00 Presenting complaint: Patient states: Chest pain that radiates towards neck that began ss 1 hour ago after patient took 1.5 tablets of phentermine. Transition of care: patient was not received from another setting of care. Onset of symptoms was June 17, 2019. Risk Assessment: Do you want to hurt yourself or someone else? Patient reports no desire to harm self or others. Initial Sepsis Screen: Does the patient meet any 2 criteria? No. Patient's initial sepsis screen is negative. Does the patient have a suspected source of infection? No. Patient's initial sepsis screen is negative. Care prior to arrival: None. 16:00 Method Of Arrival: Ambulatory ss 16:00 Acuity: BLAYNE 2 ss Historical: - Allergies: 16:03 Bactrim DS; ss 16:03 Codeine; ss 16:03 metoclopramide HCl; ss 16:03 Stadol; ss - PMHx: 16:03 Anxiety; Bipolar disorder; Atrial Fib; Chronic pain; COPD; esophageal varices; ss Hepatitis; Hypertension; HIV; Migraines; Panic Attacks; - Immunization history:: Adult Immunizations up to date. - Coronavirus screen:: The patient has NOT traveled to [place], [place], or [place] in the past 14 days. Proceed with normal triage process as indicated. - Social history:: Smoking status: Patient denies any tobacco usage or history of. - Ebola Screening: : Patient denies exposure to infectious person Patient denies travel to an Ebola-affected area in the 21 days before illness onset. Screenin:04 Abuse screen: Denies threats or abuse. Denies injuries from another. Nutritional ph screening: No deficits noted. Tuberculosis screening: No symptoms or risk factors identified. Fall Risk None identified. Assessment: 16:50 Reassessment: Called poison control, spoke to Tarah, advised to provide supportive ph care, fluids, pain meds, and benzodiazepines, cardiac work up and EKG. 17:01 General: Appears in no apparent distress. uncomfortable, Behavior is cooperative, ph anxious. Pain: Complains of pain in chest Pain radiates to left anterior aspect of neck and left lateral aspect of neck. Pain: Pain began suddenly, Aggravated by medication. Neuro: Level of Consciousness is awake, alert, obeys commands, Oriented to person, place, time, situation. Cardiovascular: Reports chest pain, nausea, palpitations, shortness of breath, Capillary refill < 3 seconds in bilateral fingers Patient's skin is warm and dry. Rhythm is sinus rhythm Chest pain quality is sharp, is located in right left anterior chest wall substernal area radiates to left neck. Respiratory: Reports shortness of breath at rest Airway is patent Respiratory effort is even, unlabored, Respiratory pattern is regular, symmetrical. Derm: Skin is intact, Skin is pink, warm \T\ dry. Musculoskeletal: Capillary refill < 3 seconds, in bilateral fingers. 18:00 Reassessment: Patient appears in no apparent distress at this time. Patient and/or ph family updated on plan of care and expected duration. Pain level reassessed. Patient is alert, oriented x 3, equal unlabored respirations, skin warm/dry/pink. Pt continues to c/o chest pain, ERP notified, see MAR. 19:17 Reassessment: Patient appears in no apparent distress at this time. Patient and/or wh family updated on plan of care and expected duration. Pain level reassessed. Patient is alert, oriented x 3, equal unlabored respirations, skin warm/dry/pink. Vital Signs: 16:00 BP 174 / 102; Pulse 85; Resp 23; Temp 98.5(TE); Pulse Ox 98% on R/A; Weight 93.44 kg; ss Height 5 ft. 4 in. (162.56 cm); Pain 10/10; 17:07 BP 183 / 104; Pulse 84; Resp 26; Pulse Ox 99% on 2 lpm NC; ph 18:32 BP 194 / 92; Pulse 85; Resp 20; Temp 98.9(O); Pulse Ox 96% on 2 lpm NC; mh5 19:17 BP 146 / 88; Pulse 88; Resp 18; Pulse Ox 94% on R/A; wh 16:00 Body Mass Index 35.36 (93.44 kg, 162.56 cm) ss ED Course: 15:46 Patient arrived in ED. as 15:54 Austin Raza, TIMBO is PHCP. pm1 15:54 Joey Jung MD is Attending Physician. pm1 16:00 Arm band placed on right wrist. ss 16:02 Triage completed. 16:14 Solange Bennett, RN is Primary Nurse. ph 16:17 XRAY Chest (1 view) In Process Unspecified. EDMS 16:48 Initial lab(s) drawn, by ED staff, sent to lab. Missed attempt(s): 24 gauge in right ss hand. Missed attempt(s): 24 gauge in left hand. Bleeding controlled, band aid applied, catheter tip intact. Inserted saline lock: 24 gauge in left upper arm, using aseptic technique. Blood collected. 17:05 Patient has correct armband on for positive identification. Placed in gown. Bed in low ph position. Call light in reach. Side rails up X2. school lunch monitor on. Pulse ox on. NIBP on. Door closed. Noise minimized. Lights dimmed. Warm blanket given. Verbal reassurance given. Head of bed lowered. 19:14 No provider procedures requiring assistance completed. Oxygen administration via nasal ph cannula. 19:43 IV discontinued, intact, bleeding controlled, No redness/swelling at site. Administered Medications: 16:46 Drug: NS 0.9% 1000 ml Route: IV; Rate: 1000 ml; Site: left upper arm; ss 19:11 Follow up: Response: No adverse reaction; IV Status: Completed infusion ph 16:47 Drug: morphine 4 mg Route: IVP; Site: left upper arm; ss 17:00 Follow up: Response: No adverse reaction; Pain is unchanged, physician notified ph 16:47 Drug: Zofran 4 mg Route: IVP; Site: left upper arm; ss 19:11 Follow up: Response: No adverse reaction; Nausea is decreased ph 17:28 Drug: morphine 4 mg Route: IVP; Site: left upper arm; ph 19:11 Follow up: Response: No adverse reaction ph 18:30 Drug: morphine 2 mg Route: IVP; Site: left upper arm; ph 19:12 Follow up: Response: No adverse reaction; Pain is decreased ph Outcome: 19:34 Discharge ordered by . pm1 19:43 Discharged to home via wheelchair, with family. 19:43 Condition: stable 19:43 Discharge instructions given to patient, family, Instructed on discharge instructions, follow up and referral plans. POC Demonstrated understanding of instructions, follow-up care, POC 19:44 Patient left the ED. Signatures: Dispatcher [employer] Radha Cárdenas Shelby, RN RN Solange Bennett RN RN ph Marinas, Patrick, TIMBO ANGLE SHEAR OPERATOR 1 Laura Simons [facility] Jonny Lloyd
[2019-06-17 19:42] LABS: Blood Morphology Comment NOTED (NOT SEEN); Platelet Estimate ADEQ; Poikilocytosis 1+; Urine White Blood Cell Casts OK
[2019-06-17 19:54] VITALS: TEMP 98.9
[2019-06-17 19:55] VITALS: BP 146/88; O2SAT 94
--- NOTE | 2019-06-18 06:58 | EKG ---
Test Date: 2019-06-17 Test Time: 16:08:58 Quality Cloth Tester: PH MEASUREMENT RESULTS: Intervals: Rate: 82 [place]: 138 QRSD: 82 QT: 382 QTc: 446 [place]: P: 20 [place]: 138 QRS: -5 T: 34 INTERPRETIVE STATEMENTS: Normal sinus rhythm Left ventricular hypertrophy with repolarization abnormality Abnormal ECG Compared to ECG 04/27/2019 00:18:15 Left ventricular hypertrophy now present Electronically Signed On 06-18-19 06:57:02 MOTOR BRAKEMAN by Rich Grissom
--- NOTE | 2019-06-18 08:04 | EKG ---
Test Date: 2019-06-17 Test Time: 16:10:27 Plate Embosser: PH MEASUREMENT RESULTS: Intervals: Rate: 83 [place]: 142 QRSD: 80 QT: 384 QTc: 451 [place]: P: 31 [place]: 142 QRS: -4 T: -41 INTERPRETIVE STATEMENTS: Normal sinus rhythm Moderate voltage criteria for LVH, may be normal variant ST & T wave abnormality, consider anterior ischemia Abnormal ECG Compared to ECG 06/17/2019 16:08:58 ST (T wave) deviation now present Possible ischemia now present Electronically Signed On 06-18-19 08:04:14 INSULATION EXTRUDER OPERATOR by Rich Grissom
== END 2019-06-17 19:44 | disposition home or self-care (01) ==
LOC: ER 15:44
DX: R07.9 Chest pain, unspecified (principal); T50.5X1A Poisoning by appetite depressants, accidental (unintentional), initial encounter; Y92.9 Unspecified place or not applicable; Z88.1 Allergy status to other antibiotic agents; Z88.6 Allergy status to analgesic agent; Z88.8 Allergy status to other drugs, medicaments and biological substances
CPT/HCPCS: 36415; 71045; 80048; 80076; 83735; 83880; 84484; 85025; 85610; 93005; 96361; 96374; 96375; 99285; J2270; J2405; J7030

== ENCOUNTER 2019-06-18 04:56 | Inpatient (IN) | payer OTHER ==
--- OUTSIDE RECORDS SUMMARY | 2019-06-18 04:59 | XMS REPORT ---
:1955 [facility] Address [address] [place] [address] Dr. Alexis [address] [place] [id number] Care Team Providers Name Role Phone SYL [...] detected (qualifier value) Not Detected URINALYSIS WITH [id number] 10:57:00 Test Item Value Reference Range Comments Color (test code=UCOLR) Dk. Yellow Clarity (test code=UCLAR) Hazy Glucose (test code=UGLUC) NEGATIVE NEGATIVE Bilirubin (test code=UBILI) NEGATIVE NEGATIVE Ketones (test code=UKET) NEGATIVE NEGATIVE Specific [place] (test code=USPGR) 1.025 1.005-1.030 Blood (test code=UBLD) [...]
[2019-06-18] MEDS ORDERED: LEVALBUTEROL 1.25 MG/3 ML NEB ONE (05:05)
[2019-06-18] MEDS ORDERED: METHYLPREDNISOLONE 125 MG INJ ONE (05:05)
[2019-06-18] MEDS ORDERED: NA CHLORIDE 0.9% 500 ML ONE (05:25)
[2019-06-18 05:29] LABS: Absolute Lymphocytes (CBC) 0.9 K/uL (0.7-4.9); Basophils % 0.3 % (0-1.3); Hematocrit 40.6 % (36.0-45.0); MPV 8.3 fL (7.6-11.3); RBC Red Blood Cell Count 4.88 M/uL (3.86-4.86)
[2019-06-18] MEDS ORDERED: IBUPROFEN 400 MG TAB ONE (05:54)
[2019-06-18 05:57] LABS: Protime INR 1.18
[2019-06-18 06:02] LABS: BUN Blood Urea Nitrogen 27 mg/dL (7-18); Bicarbonate 26 mmol/L (21-32); Glucose Level 94 mg/dL (74-106); NT PRO-BNP 2716 pg/mL (<125); Potassium 3.4 mmol/L (3.5-5.1); Sodium Level 137 mmol/L (136-145); Troponin (Emerg Dept Use Only) < 0.02 ng/mL (0.0-0.045)
--- NOTE | 2019-06-18 06:07 | EDPHYS ---
Physician Documentation [facility] Name: Marjan Fleming Age: 64 yrs Sex: Female : 1955 Arrival Date: 06/18/2019 Time: 04:57 Bed 6 Private MD: ED Physician Ramon Baker HPI: 06/18 05:00 This 64 yrs old Female presents to ER via Unassigned with complaints of sob, rn chest pain. 05:00 The patient has shortness of breath at rest. Onset: The symptoms/episode began/occurred rn yesterday. Duration: The symptoms are continuous. The patient's shortness of breath is aggravated by exertion. Associated signs and symptoms: Pertinent positives: chest pain, productive cough, fever, hemoptysis. Severity of symptoms: At their worst the symptoms were moderate in the emergency department the symptoms are unchanged. The patient has experienced similar episodes in the past. Reports seen here 12 hours ago because she took extra phentermine to try and clean her house, told everything ok so went home, feels worse, + sob with productive cough and fever, no trauma. . Historical: - Allergies: 05:09 Bactrim DS; fc 05:09 Codeine; fc 05:09 metoclopramide HCl; fc 05:09 Stadol; fc - Home Meds: 05:09 Albuterol Inhl [Active]; Descovy 200-25 mg Oral tab 1 tab once daily [Active]; fc Hydralazine Oral [Active]; Lorazepam Oral [Active]; 05:55 lisinopril 40 mg oral tab 1 tab once daily [Active]; metoprolol tartrate 100 mg oral fc tab 1 tab 2 times per day [Active]; raltegravir Oral 1 tab 2 times per day [Active]; omeprazole 40 mg Oral cpDR 1 cap 2 times per day [Active]; - PMHx: 05:09 Anxiety; COPD; HIV; Panic Attacks; Migraines; Hepatitis; Bipolar disorder; esophageal fc varices; Hypertension; Chronic pain; Atrial Fib; - Immunization history:: Last tetanus immunization: up to date Flu vaccine is up to date. - Coronavirus screen:: The patient has NOT traveled to [place], [place], or [place] in the past 14 days. The patient has NOT had contact with known/suspected case of Coronavirus?. - Family history:: not pertinent. - Social history:: Smoking status: Patient/guardian denies using tobacco, Patient/guardian denies using alcohol, street drugs. - Hospitalizations: : No recent hospitalization is reported. - Ebola Screening: : Patient negative for fever greater than or equal to 101.5 degrees Fahrenheit, and additional compatible Ebola Virus Disease symptoms Patient denies exposure to infectious person Patient denies travel to an Ebola-affected area in the 21 days before illness onset. 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 Exam: 05:00 Constitutional: This is a well developed, well nourished patient who is awake, alert rn Head/Face: Normocephalic, atraumatic. ENT: dry MM, no stridor Cardiovascular: Regular rate and rhythm. No pulse deficits. Respiratory: + bilateral exp wheezing, no retractions, + moderate tachypnea Abdomen/GI: soft, non-tender MS/ Extremity: Pulses equal, no cyanosis. Neurovascular intact. Full, normal range of motion. Equal circumference. Neuro: Awake and alert, GCS 15, oriented to person, place, time, and situation. Vital Signs: 04:50 BP 106 / 61; Pulse 100; Resp 20; Temp 100.3(TE); Pulse Ox 90% on R/A; Weight 93.44 kg fc (R); Height 5 ft. 4 in. (162.56 cm) (R); Pain 10/10; 06:00 BP 95 / 65; Pulse 97; Resp 26; Pulse Ox 93% on 3 lpm NC; rv 06:31 BP 114 / 64; Pulse 91; Resp 22; Pulse Ox 94% on 3 lpm NC; rv 07:23 BP 88 / 59; Pulse 87; Resp 24; Temp 98.7(O); Pulse Ox 94% on 3 lpm NC; Pain 10/10; em 08:14 BP 104 / 65; Pulse 83; Resp 22; Pulse Ox 93% on 3 lpm NC; em 04:50 Body Mass Index 35.36 (93.44 kg, 162.56 cm) fc MDM: 04:58 Patient medically screened. rn 06:04 Differential diagnosis: Chronic Obstructive Pulmonary Disease Myocardial Infarction rn pneumonia, Pneumothorax pulmonary edema. Data reviewed: vital signs, nurses notes, lab test result(s), radiologic studies, plain films, and as a result, I will admit patient. Counseling: I had a detailed discussion with the patient and/or guardian regarding: the historical points, exam findings, and any diagnostic results supporting the discharge/admit diagnosis, lab results, radiology results, the need for further work-up and treatment in the hospital. Response to treatment: the patient's symptoms have mildly improved after treatment, and as a result, I will admit patient. Admission orders: after a detailed discussion of the patient's condition and case, the admit orders are written by me. 06/18 04:58 Order name: Blood Culture Adult (2) rn 06/18 04:58 Order name: BMP; Complete Time: 06:02 06/18 04:58 Order name: CBC with Diff rn 06/18 04:58 Order name: NT PRO-BNP; Complete Time: 06:02 rn 06/18 04:58 Order name: PT-INR; Complete Time: 06:02 06/18 04:58 Order name: Ptt, Activated; Complete Time: 06:02 06/18 04:58 Order name: Troponin (emerg Dept Use Only); Complete Time: 06:02 06/18 04:59 Order name: Procalcitonin rn 06/18 04:59 Order name: Flu; Complete Time: 06:38 rn 06/18 05:34 Order name: Manual Differential [facility] 06/18 06:30 Order name: Urine Drug Screen [facility] 06/18 06:30 Order name: Hemoglobin A1c [facility] 06/18 06:30 Order name: Urinalysis [facility] 06/18 06:30 Order name: CBC with Automated Diff [facility] 06/18 06:30 Order name: CBC with Automated Diff [facility] 06/18 06:30 Order name: CKMB Creatine Kinase MB [facility] 06/18 06:30 Order name: CKMB Creatine Kinase MB [facility] 06/18 06:30 Order name: CKMB Creatine Kinase MB [facility] 06/18 06:30 Order name: CKMB Creatine Kinase MB [facility] 06/18 06:30 Order name: Comprehensive Metabolic Panel [facility] 06/18 06:30 Order name: Comprehensive Metabolic Panel [facility] 06/18 06:30 Order name: Lipid Profile [facility] 06/18 06:30 Order name: Lipid Profile [facility] 06/18 06:30 Order name: Magnesium [facility] 06/18 06:30 Order name: Magnesium [facility] 06/18 06:30 Order name: Protime (+INR) [facility] 06/18 06:30 Order name: Protime (+INR) [facility] 06/18 06:30 Order name: Troponin I [facility] 06/18 06:31 Order name: Troponin I [facility] 06/18 06:31 Order name: Troponin I [facility] 06/18 04:58 Order name: XRAY CXR (1 view) rn 06/18 04:58 Order name: EKG; Complete Time: 05:00 rn 06/18 04:58 Order name: Cardiac monitoring; Complete Time: 05:14 rn 06/18 04:58 Order name: EKG - Nurse/Tech; Complete Time: 05:14 rn 06/18 04:58 Order name: IV Saline Lock; Complete Time: 05:14 rn 06/18 04:58 Order name: Labs collected and sent; Complete Time: 05:15 rn 06/18 04:58 Order name: O2 Per Protocol; Complete Time: 05:15 rn 06/18 04:58 Order name: O2 Sat Monitoring; Complete Time: 05:18 rn 06/18 06:30 Order name: Heart Healthy [facility] 06/18 06:30 Order name: Echo with Doppler [facility] 06/18 06:31 Order name: Troponin I [facility] Administered Medications: 05:17 Drug: NS 0.9% 500 ml Route: IV; Rate: bolus; Site: right antecubital; rv 05:54 Follow up: Response: No adverse reaction; IV Status: Completed infusion; IV Intake: ea 500ml 05:18 Drug: SOLU-Medrol 125 mg Route: IVP; Site: right antecubital; rv 05:54 Follow up: Response: No adverse reaction ea 05:18 Drug: Xopenex (3) 1.25 mg Route: Inhalation; rv 05:54 Follow up: Response: No adverse reaction ea 05:54 Drug: Motrin 800 mg Route: PO; ea 07:24 Follow up: Response: No adverse reaction; Temperature is decreased em 06:20 Drug: NS 0.9% 1000 ml Route: IV; Rate: 1000 ml; Site: right antecubital; rv 07:21 Follow up: IV Status: Completed infusion; IV Intake: 1000ml em 06:21 Drug: Rocephin - (cefTRIAXone) 1 grams Route: IVPB; Infused Over: 30 mins; Site: right rv antecubital; 06:21 Follow up: IV Status: Completed infusion rv 06:21 Drug: Zithromax 500 mg Route: IVPB; Infused Over: 1 hrs; Site: right antecubital; rv 07:25 Follow up: Response: No adverse reaction; IV Status: Completed infusion; IV Intake: em 250ml Disposition: 06/18/19 06:06 Hospitalization ordered by Cris Varela for Inpatient Admission. Preliminary diagnosis are Chest pain, unspecified, Pneumonia, Chronic obstructive pulmonary disease with acute lower respiratory infection, Chronic obstructive pulmonary disease with (acute) exacerbation. - Bed requested for Telemetry/MedSurg (Inpatient). - Status is Inpatient Admission. iw - Condition is Stable. - Problem is new. - Symptoms have improved. UTI on Admission? No Signatures: Dispatcher [employer] EDMS Heydi Caldera Felicia RN RN Jacquelin Elias RN ASHLEY Ramon Baker MD MD rn Antunez, Elena, RN RN ea Peltier, Brian, RN RN bp Vicente, Ronaldo RN Venu Rubi RN em Corrections: (The following items were deleted from the chart) 05:55 05:09 Home Meds: [facility]ril [facility]; [facility] 05:55 05:09 Home Meds: Metoprolol Tartrate [facility]; [facility] 05:55 05:09 Home Meds: Norvasc Oral; fc 05:55 05:09 Home Meds: raltegravir Oral; [facility] 05:55 05:09 Home Meds: Trimethoprim-Sulfamethoxazole Oral; [facility] 07:50 06:06 Hospitalization Ordered by Cris Varela MD for Inpatient Admission. Preliminary bd diagnosis is Chest pain, unspecified; Pneumonia; Chronic obstructive pulmonary disease with acute lower respiratory infection; Chronic obstructive pulmonary disease with (acute) exacerbation. Bed requested for Telemetry/MedSurg (Inpatient). Status is Inpatient Admission. Condition is Stable. Problem is new. Symptoms have improved. UTI on Admission? No. rn 08:56 07:50 06/18/2019 06:06 Hospitalization Ordered by Cris Varela MD for Inpatient bp Admission. Preliminary diagnosis is Chest pain, unspecified; Pneumonia; Chronic obstructive pulmonary disease with acute lower respiratory infection; Chronic obstructive pulmonary disease with (acute) exacerbation. Bed requested for Telemetry/MedSurg (Inpatient). Status is Inpatient Admission. Condition is Stable. Problem is new. Symptoms have improved. UTI on Admission? No. bd 09:24 08:56 06/18/2019 06:06 Hospitalization Ordered by Cris Varela MD for Inpatient iw Admission. Preliminary diagnosis is Chest pain, unspecified; Pneumonia; Chronic obstructive pulmonary disease with acute lower respiratory infection; Chronic obstructive pulmonary disease with (acute) exacerbation. Bed requested for Telemetry/MedSurg (Inpatient). Status is Inpatient Admission. Condition is Stable. Problem is new. Symptoms have improved. UTI on Admission? No. bp
--- NOTE | 2019-06-18 06:07 | ER ---
Nurse's Notes [facility] Name: Marjan Fleming Age: 64 yrs Sex: Female : 1955 Arrival Date: 06/18/2019 Time: 04:57 Bed 6 Private MD: Diagnosis: Chest pain, unspecified;Pneumonia;Chronic obstructive pulmonary disease with acute lower respiratory infection;Chronic obstructive pulmonary disease with (acute) exacerbation Presentation: 06/18 04:50 Presenting complaint: Patient states: that she was here eariler in the shift due to fc taking 1.5 tabs of Phentermine and feeling as if her heart was going to jump out of her chest. Upon going home she started to have chest pain, worsening cough, neck pain, kidney pain and nausea. Transition of care: patient was not received from another setting of care. Onset of symptoms was June 18, 2019. Risk Assessment: Do you want to hurt yourself or someone else? Patient reports no desire to harm self or others. Initial Sepsis Screen: Does the patient meet any 2 criteria? HR > 90 bpm. No. Patient's initial sepsis screen is negative. Does the patient have a suspected source of infection? No. Patient's initial sepsis screen is negative. Care prior to arrival: None. 04:50 Method Of Arrival: EMS: [facility] 04:50 Acuity: [facility] 3 fc Historical: - Allergies: 05:09 Bactrim DS; fc 05:09 Codeine; fc 05:09 metoclopramide HCl; fc 05:09 Stadol; fc - Home Meds: 05:09 Albuterol Inhl [Active]; Descovy 200-25 mg Oral tab 1 tab once daily [Active]; fc Hydralazine Oral [Active]; Lorazepam Oral [Active]; 05:55 lisinopril 40 mg oral tab 1 tab once daily [Active]; metoprolol tartrate 100 mg oral fc tab 1 tab 2 times per day [Active]; raltegravir Oral 1 tab 2 times per day [Active]; omeprazole 40 mg Oral cpDR 1 cap 2 times per day [Active]; - PMHx: 05:09 Anxiety; COPD; HIV; Panic Attacks; Migraines; Hepatitis; Bipolar disorder; esophageal fc varices; Hypertension; Chronic pain; Atrial Fib; - Immunization history:: Last tetanus immunization: up to date Flu vaccine is up to date. - Coronavirus screen:: The patient has NOT traveled to [place], [place], or [place] in the past 14 days. The patient has NOT had contact with known/suspected case of Coronavirus?. - Family history:: not pertinent. - Social history:: Smoking status: Patient/guardian denies using tobacco, Patient/guardian denies using alcohol, street drugs. - Hospitalizations: : No recent hospitalization is reported. - Ebola Screening: : Patient negative for fever greater than or equal to 101.5 degrees Fahrenheit, and additional compatible Ebola Virus Disease symptoms Patient denies exposure to infectious person Patient denies travel to an Ebola-affected area in the 21 days before illness onset. Screenin:50 Abuse screen: Denies threats or abuse. Nutritional screening: No deficits noted. fc Tuberculosis screening: No symptoms or risk factors identified. Fall Risk Fall in past 12 months (25 points). Secondary diagnosis (15 points) impaired mobility, No IV (0 pts). Ambulatory Aid- None/Bed Rest/Nurse Assist (0 pts). Gait- Weak (10 pts.). Mental Status- Overestimates/Forgets Limitations (15 pts.). Total Hauser Fall Scale indicates High Risk Score (45 or more points). Fall prevention measures have been instituted. Side Rails Up X 2 Placed Close to Nursing Station Frequent Obs/Assessments Occuring As available patient and family educated on Fall Prevention Program and Strategies. Assessment: 05:18 General: Appears uncomfortable, ill, Behavior is calm, cooperative. Pain: Complains of rv pain in GENERALIZED. Neuro: Level of Consciousness is awake, alert, obeys commands, Oriented to person, place, time, situation. Cardiovascular: Patient's skin is warm and dry. Respiratory: Airway is patent Breath sounds with wheezes bilaterally. GI: No signs and/or symptoms were reported involving the gastrointestinal system. : No signs and/or symptoms were reported regarding the genitourinary system. Derm: Skin with poor turgor. 06:32 Reassessment: Patient appears in no apparent distress at this time. Patient and/or rv family updated on plan of care and expected duration. Pain level reassessed. Patient is alert, oriented x 3, equal unlabored respirations, skin warm/dry/pink. PATIENT UPDATED ON THE PLAN OF CARE. FOR ADMISSION. 07:00 Reassessment: RECD REPORT FROM GREGORIA RAMIREZ. 64YO WF P/W SOB AND CP. ADMIT IN PROCESS FOR bp PNEUMONIA. VS STABLE ON MONITOR. BED ASSIGNMENT PENDING. Vital Signs: 04:50 BP 106 / 61; Pulse 100; Resp 20; Temp 100.3(TE); Pulse Ox 90% on R/A; Weight 93.44 kg fc (R); Height 5 ft. 4 in. (162.56 cm) (R); Pain 10/10; 06:00 BP 95 / 65; Pulse 97; Resp 26; Pulse Ox 93% on 3 lpm NC; rv 06:31 BP 114 / 64; Pulse 91; Resp 22; Pulse Ox 94% on 3 lpm NC; rv 07:23 BP 88 / 59; Pulse 87; Resp 24; Temp 98.7(O); Pulse Ox 94% on 3 lpm NC; Pain 10/10; em 08:14 BP 104 / 65; Pulse 83; Resp 22; Pulse Ox 93% on 3 lpm NC; em 04:50 Body Mass Index 35.36 (93.44 kg, 162.56 cm) fc ED Course: 04:50 Arm band placed on Patient placed in an exam room, on a stretcher. fc 04:50 Patient has correct armband on for positive identification. Placed in gown. Bed in low fc position. Call light in reach. Side rails up X2. engine monitor on. Pulse ox on. NIBP on. 04:50 No provider procedures requiring assistance completed. fc 04:57 Patient arrived in ED. ds1 04:57 Ramon Baker MD is Attending Physician. rn 05:00 Inserted saline lock: 20 gauge in right antecubital area, using aseptic technique. rv Blood collected. 05:00 First set of blood cultures drawn by me. rv 05:02 Triage completed. fc 05:05 Gregoria Madison, RN is Primary Nurse. ea 05:13 Flu Sent. jb5 05:13 Procalcitonin Sent. jb5 05:14 BMP Sent. jb5 05:14 Blood Culture Adult (2) Sent. jb5 05:14 CBC with Diff Sent. jb5 05:14 NT PRO-BNP Sent. jb5 05:14 PT-INR Sent. jb5 05:14 Ptt, Activated Sent. jb5 05:20 XRAY CXR (1 view) In Process Unspecified. EDMS 06:06 Cris Varela MD is Hospitalizing Provider. rn 07:02 Primary Nurse role handed off by Gregoria Madison RN bp 07:02 Carlos Eduardo Olivera, ASHLEY is Primary Nurse. bp 09:06 Patient admitted, IV remains in place. em Administered Medications: 05:17 Drug: NS 0.9% 500 ml Route: IV; Rate: bolus; Site: right antecubital; rv 05:54 Follow up: Response: No adverse reaction; IV Status: Completed infusion; IV Intake: ea 500ml 05:18 Drug: SOLU-Medrol 125 mg Route: IVP; Site: right antecubital; rv 05:54 Follow up: Response: No adverse reaction ea 05:18 Drug: Xopenex (3) 1.25 mg Route: Inhalation; rv 05:54 Follow up: Response: No adverse reaction ea 05:54 Drug: Motrin 800 mg Route: PO; ea 07:24 Follow up: Response: No adverse reaction; Temperature is decreased em 06:20 Drug: NS 0.9% 1000 ml Route: IV; Rate: 1000 ml; Site: right antecubital; rv 07:21 Follow up: IV Status: Completed infusion; IV Intake: 1000ml em 06:21 Drug: Rocephin - (cefTRIAXone) 1 grams Route: IVPB; Infused Over: 30 mins; Site: right rv antecubital; 06:21 Follow up: IV Status: Completed infusion rv 06:21 Drug: Zithromax 500 mg Route: IVPB; Infused Over: 1 hrs; Site: right antecubital; rv 07:25 Follow up: Response: No adverse reaction; IV Status: Completed infusion; IV Intake: em 250ml Intake: 05:54 IV: 500ml; Total: 500ml. ea 07:21 IV: 1000ml; Total: 1500ml. em 07:25 IV: 250ml; Total: 1750ml. em Outcome: 06:06 Decision to Hospitalize by Provider. rn 08:59 Admitted to Med/surg accompanied by tech, via wheelchair, room 203, with oxygen, with em chart, Report called to ASHLEY CONLEY 08:59 Condition: good 08:59 Instructed on the need for admit, Demonstrated understanding of instructions. 09:24 Patient left the ED. iw Signatures: Dispatcher [employer] EDTl Wigginsicia, RN RN Venu Ortega, RN RN em Lainey Monson ds1 Jacquelin Meier RN Ramon Roman MD MD rn Broussard, Jennifer jb5 Gregoria Madison RN Carlos Eduardo Clay ea RN RN Scott Muller, RN RN rv Corrections: (The following items were deleted from the chart) 05:03 04:50 Initial Sepsis Screen: Does the patient meet any 2 criteria? Systolic BP < 90 fc mmHg. HR > 90 bpm. Yes Does the patient have a suspected source of infection? No. Patient's initial sepsis screen is negative. 05:55 05:09 Home Meds: [facility]opril [facility]; [facility] 05:55 05:09 Home Meds: Metoprolol Tartrate Oral; [facility] 05:55 05:09 Home Meds: Norvasc Oral; [facility] 05:55 05:09 Home Meds: raltegravir Oral; [facility] 05:55 05:09 Home Meds: Trimethoprim-Sulfamethoxazole Oral; [facility] 08:15 08:14 BP 104 / 65; Pulse 83bpm; Resp 18bpm; Pulse Ox 93% 3 lpm Nasal Cannula; em em
[2019-06-18] MEDS ORDERED: NA CHLORIDE 0.9% 100 ML IV ONE (06:15)
[2019-06-18] MEDS ORDERED: NA CHLORIDE 0.9% 1,000 ML ONE ×2 (06:15→07:35)
[2019-06-18] MEDS ORDERED: AZITHROMYCIN 500 MG INJ IVPB ONE (06:15)
[2019-06-18] MEDS ORDERED: CEFTRIAXONE/SWI 1gm 1 GM/10 ML SYR ONE (06:15)
[2019-06-18] MEDS ORDERED: ONDANSETRON 4 MG/2 ML VIAL IV PRN (06:26)
[2019-06-18] MEDS ORDERED: ALBUTEROL 2.5 MG/3 ML NEB SOL NEB PRN (06:26)
[2019-06-18] MEDS ORDERED: MORPHINE 4 MG/ML SYR IV PRN (06:26)
[2019-06-18] MEDS ORDERED: ACETAMINOPHEN 325 MG TABLET PO PRN (06:26)
--- NOTE | 2019-06-18 06:35 | P.HP ---
Certification for Inpatient Patient admitted to: Inpatient With expected LOS: >2 Midnights Patient will require the following post-hospital care: Home Health Services Practitioner: I am a practitioner with admitting privileges, knowledge of patient current condition, hospital course, and medical plan of care. Services: Services provided to patient in accordance with Admission requirements found in Title 42 Section 412.3 of the Code of Federal Regulations Patient History Date of Service: 06/18/19 Reason for admission: chest pain, sob History of Present Illness: barbara solitario is a 64yoF w/ pmhx of HIV, TIA, HTN,COPD, bipolar- depression and obesity who presents again today to the ER due to worsening CP and SOB. she states that she took phentermine double the usual dose and started to have chest pain thereafter. she reports that she has never taken the medication like this before and started to have a chest pressure that lead to a back pain that radiated up to the back of her neck w/ sob and STEPHENS. she was sent home from the ED on tuesday but returns stating that she is more SOB. she reports that she has had a productive w/ hemoptysis cough x 3 weeks. she is exposed to her grandchildren whom shse states are always sick. she is found to have hypoxia w/ o2 sat < 90%. thus she is started on supplemental o2 and due nebs with improvement. currently she reports that she continues to have chest pain w/o further radiation. she reports STEPHENS, fever, chills, orthopnea, she denies n//v/restrepo/dizziness/syncpoe/le swelling/stomach or back pain. on evaluation while in the ED it is noted that she has leucocytosis (wbc 18), hypoxia ( o2sat < 90%); marilynn (Cr 1.4), poss CHF ( bnp > 2716). thus she is being admitted for abx and management of her s/s. she reports that she quit smoking 1 month ago hx of 1pk/day x 20yrs denies etoh/drug use. Allergies fentanyl Allergy (Severe, Verified 06/30/17 03:39) Hives butorphanol tartrate [From Stadol] Allergy (Verified 06/30/17 03:39) confusion metoclopramide HCl [From Reglan] Allergy (Verified 06/30/17 03:39) Shortness of breath sulfamethoxazole [From Bactrim] Allergy (Verified 06/30/17 03:39) Hives/Rash trimethoprim [From Bactrim] Allergy (Verified 06/30/17 03:39) Hives/Rash codeine Adverse Reaction (Mild, Verified 03/12/18 17:38) Nausea/Vomiting Bactrim DS Allergy (Uncoded 07/23/17 16:47) Unknown Home Medications: Raltegravir Potassium [Isentress] 400 mg PO BID 02/28/12 Lorazepam [Ativan] 2 mg PO BID* PRN 04/02/12 Sertraline [Zoloft*] 200 mg PO DAILY 09/15/12 Amlodipine [Norvasc*] 10 mg PO DAILY 01/04/13 Tiotropium [Spiriva Handihaler*] 18 mcg IH DAILY #1 cap.w.dev 10/24/14 Esomeprazole Mag Trihydrate [Nexium] 40 mg PO DAILY #30 capsule. 02/27/16 Emtricitabine/Tenofov Alafenam [Descovy 200-25 mg Tablet] 1 tab PO BEDTIME 10/05 Albuterol Neb [Proventil 0.083% Neb Soln] 2.5 mg IH BID 03/12/18 predniSONE [Prednisone*] 20 mg PO DAILY 03/12/18 Albuterol Sulfate [Ventolin Hfa] 2 puff IH TID PRN #90 hfa.aer.ad 03/13/18 Budesonide/Formoterol Fumarate [Symbicort 160-4.5 Mcg Inhaler] 2 puff IH BID #1 hfa.aer.ad 03/13/18 Hydralazine HCl 50 mg PO BID #60 tablet 03/13/18 Ipratropium Neb [Atrovent*] 1 inh IH BIDP PRN 04/02/18 Aspirin [Aspirin EC 81 MG] 162 mg PO DAILY #30 tablet. 06/18/18 Atorvastatin Calcium [Lipitor] 40 mg PO BEDTIME #30 tab 06/18/18 Ferrous Sulfate 325 mg PO BID #60 tablet 06/18/18 - Past Medical/Surgical History Diabetic: No -: HIV diag ~ [address] Yohan Cardenas in [place] -: . -: Bipolar disorder Dr Krause in [place] -: Hypertension -: COPD -: Tobacco abuse -: Alcohol abuse -: Anemia likely of chronic disease -: constrictor of urethia -: Appendectomy -: Cholecystectomy -: left shoulder rotated cuff -: Right foot repair -: Right shoulder replacement -: left shoulder rotated cuff Psychosocial/ Personal History: She lives at home. She is not . - Family History Father -: Kidney disease Mother -: Other (see notes) Notes: Epilepsy, chronic pain - Social History Alcohol use: No CD- Drugs: No Caffeine use: Yes Review of Systems General: Fever, Chills, Weakness, Malaise Eyes: Unremarkable ENT: Unremarkable Respiratory: Cough, Shortness of Breath, Hemoptysis, SOB with Excertion, Sputum , Wheezing, As per HPI Cardiovascular: Chest Pain, Orthopnea, As per HPI Gastrointestinal: Unremarkable Genitourinary: Unremarkable Musculoskeletal: Neck Pain, As per HPI Integumentary: Unremarkable Neurological: Unremarkable Physical Examination - Physical Exam General: Alert, Oriented x3, Cooperative, Mild distress, Obese, Other (appears uncomfortable, not ill or toxic appearing. conversational, a/ox3, interactive. appears flushed) HEENT: Atraumatic Neck: Supple Respiratory: Other (scattered wheezing, decreased aeration, no use of accessory muscles) Cardiovascular: No edema, Normal pulses, No murmurs Capillary refill: <2 Seconds Gastrointestinal: Normal bowel sounds, No tenderness, No guarding Musculoskeletal: No clubbing Integumentary: No rashes Neurological: Normal speech, Normal affect, Other (gait not tested) External genitalia: Deferred Rectal: Deferred - Studies Laboratory Data (last 24 hrs) 06/18/19 05:00: PT 13.8 H, INR 1.18, APTT 27.4 06/18/19 05:00: WBC 18.0 H D, Hgb 13.2, Hct 40.6, Plt Count 213 06/18/19 05:00: Sodium 137, Potassium 3.4 L, BUN 27 H, Creatinine 1.42 H, Glucose 94 Microbiology Data (last 24 hrs): 06/18/19 05:04 Nasopharnyx Influenza Type A Antigen Screen - Final 06/18/19 05:04 Nasopharnyx Influenza Type B Antigen Screen - Final Assessment and Plan - Plan 64 yoF admitted w/ PNA - based on cxr, s/s and o2 sats started on iv abx duo nebs, IS and monitor on tele f/u w/ blood cx trend CE, obtain procal sepsis - mild continue w/ IVF, abx and monitor on tele hypoxia w/ hx/o COPD c/w duonebs, IS chest pain w/poss CHF obtain drug screen obtain a1c, tsh and lipid panel trend CE and monitor on tele morphine, SL nitro and ASA obtain TT marilynn trend Cr and start on IVF monitor UOP HIV pt is concerned that her medication will not be available in house will need to consider the sepsis/marilynn prior to restarting her HIV medication dvt - lovenox code status- full - Advance Directives Does patient have a Living Will: No Does patient have a Durable POA for Healthcare: No
--- NOTE | 2019-06-18 06:54 | EKG ---
Test Date: 2019-06-18 Test Time: 05:11:42 Tank Cooper: LUIS DANIEL MEASUREMENT RESULTS: Intervals: Rate: 95 MS: 112 QRSD: 98 QT: 378 QTc: 475 [place]: P: -3 MS: 112 QRS: 0 T: 80 INTERPRETIVE STATEMENTS: Normal sinus rhythm Left ventricular hypertrophy with repolarization abnormality Abnormal ECG Compared to ECG 04/27/2019 00:18:15 Left ventricular hypertrophy now present Electronically Signed On 06-18-19 06:53:55 ARCHIVIST MILITARY HISTORY by Rich Grissom
[2019-06-18] MEDS: NA CHLORIDE 0.9% 1,000 ML IV SCH ×4 (07:00→21:05)
[2019-06-18 07:04] LABS: Blood Morphology Comment NOT SEEN (NOT SEEN); Platelet Estimate ADEQ
[2019-06-18] MEDS ORDERED: IPRATROPIUM BROM 0.5MG/2.5ML NEB SCH (08:00)
[2019-06-18] MEDS ORDERED: ALBUTEROL 2.5 MG/3 ML NEB SOL NEB SCH (08:00)
--- NOTE | 2019-06-18 08:17 | RAD REPORT ---
EXAM DESCRIPTION: Patrick Single View06/18/2019 5:19 am CLINICAL HISTORY: Chest pain COMPARISON: June 17, 2019 FINDINGS: Left upper lobe consolidation has developed. Mild right upper lobe opacities. Small left pleural effusion may be present. IMPRESSION: Left upper lobe consolidation with mild right lung opacities consistent with pneumonia. This should be followed until it is clear to help exclude a post obstructive process
[2019-06-18] MEDS ORDERED: predniSONE 10 MG TAB PO SCH (09:38)
[2019-06-18] MEDS ORDERED: FAMOTIDINE 20 MG TAB PO SCH (09:38)
[2019-06-18] MEDS ORDERED: CEFEPIME 1 GM/VIAL IV SCH (09:38)
[2019-06-18] MEDS: CEFEPIME/SWI 1gm 10 ML IV SCH ×2 (10:00→21:05)
[2019-06-18] MEDS: HYDROCODONE/APAP 5/325 MG TAB PO PRN (10:09)
[2019-06-18] MEDS: ENOXAPARIN 40 MG/0.4 ML SQ SCH (10:12)
[2019-06-18] MEDS: ARFORMOTEROL TARTRATE 15 MCG/2 ML VIAL.NEB NEB SCH ×2 (10:30→20:00)
--- NOTE | 2019-06-18 10:52 | P.INFCA ---
Sepsis Focused Assessment - Focused Assessment Complete? Sepsis Focused Assessment Completed?: Yes - Sepsis Screen Result Severe Sepsis: Negative Septic Shock: Negative - Evaluation Current stage of sepsis: Ruled out Reason for ruling out sepsis: pneumonia/COPD - Vital Signs Reviewed: Yes Heart rate: 83 Blood Pressure: 104/65 Respiratory Rate: 22 - Examination Date exam was performed: 06/18/19 Time exam was performed: 10:51 Heart: Regular rate/rhythm Lungs: Crackles (Bilateral), Wheezes (Bilateral) Peripheral pulses: 3+ Normal Peripheral pulse location: Radial Capillary refill: <2 Seconds Skin examination: Normal turgor
--- NOTE | 2019-06-18 11:17 | ECHO ---
HEIGHT: 5 ft 4 in WEIGHT: 205 lb 15.999 oz DATE OF STUDY: 06/18/[address]: Cris Varela 2-DIMENSIONAL: YES M.MODE: YES DOPPLER: YES COLOR FLOW: YES TDS: NO PORTABLE: NO DEFINITY: NO BUBBLE STUDY: NO DIAGNOSIS: ELEVATED BNP/ CHEST PAIN CARDIAC HISTORY: CATHERIZATION: NO SURGERY: NO PROSTHETIC VALVE: NO PACEMAKER: NO MEASUREMENTS (cm) DIASTOLIC (NORMALS) SYSTOLIC (NORMALS) IVSd 1.1 (0.6-1.2) LA Diam 3.7 (1.9-4.0) LVEF 64% LVIDd 4.3 (3.5-5.7) LVIDs 2.9 (2.0-3.5) %FS 34% LVPWd 1.3 (0.6-1.2) Ao Diam 3.0 (2.0-3.7) 2 DIMENSIONAL ASSESSMENT: RIGHT ATRIUM: NORMAL LEFT ATRIUM: NORMAL RIGHT VENTRICLE: NORMAL LEFT VENTRICLE: NORMAL TRICUSPID VALVE: NORMAL MITRAL VALVE: NORMAL PULMONIC VALVE: NORMAL AORTIC VALVE: NORMAL PERICARDIAL EFFUSION: NONE AORTIC ROOT: NORMAL LEFT VENTRICULAR WALL MOTION: NORMAL. DOPPLER/COLOR FLOW: PHYSIOLOGIC TRICUSPID REGURGITATION. NORMAL RIGHT VENTRICULAR SYSTOLIC PRESSURE. COMMENTS: NORMAL 2D ECHO WITH DOPPLER. TECHNOLOGIST: MINDA COLES
--- NOTE | 2019-06-18 11:49 | P.CNS ---
Date of Consult: 06/18/19 Reason for Consult: Hemoptysis and pneumonia Chief Complaint: Cough and hemoptysis History of Present Illness: Patient is 64 years of age a former heavy smoker quit 4 weeks ago as been having persistent coughing spells for the past 3 weeks for the past 2 days has had some hemoptysis cough worse for the past week she uses as have her ' s bronchodilators denies any fever chills Allergies fentanyl Allergy (Severe, Verified 06/30/17 03:39) Hives butorphanol tartrate [From Stadol] Allergy (Verified 06/30/17 03:39) confusion metoclopramide HCl [From Reglan] Allergy (Verified 06/30/17 03:39) Shortness of breath sulfamethoxazole [From Bactrim] Allergy (Verified 06/30/17 03:39) Hives/Rash trimethoprim [From Bactrim] Allergy (Verified 06/30/17 03:39) Hives/Rash codeine Adverse Reaction (Mild, Verified 03/12/18 17:38) Nausea/Vomiting Bactrim DS Allergy (Uncoded 06/18/19 11:38) Hives/Rash Home Medications: Raltegravir Potassium [Isentress] 400 mg PO BID 02/28/12 Lorazepam [Ativan] 2 mg PO BID* PRN 04/02/12 Sertraline [Zoloft*] 200 mg PO DAILY 09/15/12 Amlodipine [Norvasc*] 10 mg PO DAILY 01/04/13 Tiotropium [Spiriva Handihaler*] 18 mcg IH DAILY #1 cap.w.dev 10/24/14 Esomeprazole Mag Trihydrate [Nexium] 40 mg PO DAILY #30 capsule.dr 02/27/16 Emtricitabine/Tenofov Alafenam [Descovy 200-25 mg Tablet] 1 tab PO BEDTIME 10/05 Albuterol Neb [Proventil 0.083% Neb Soln] 2.5 mg IH BID 03/12/18 predniSONE [Prednisone*] 20 mg PO DAILY 03/12/18 Albuterol Sulfate [Ventolin Hfa] 2 puff IH TID PRN #90 hfa.aer.ad 03/13/18 Budesonide/Formoterol Fumarate [Symbicort 160-4.5 Mcg Inhaler] 2 puff IH BID #1 hfa.aer.ad 03/13/18 Hydralazine HCl 50 mg PO BID #60 tablet 03/13/18 Ipratropium Neb [Atrovent*] 1 inh IH BIDP PRN 04/02/18 Aspirin [Aspirin EC 81 MG] 162 mg PO DAILY #30 tablet. 06/18/18 Atorvastatin Calcium [Lipitor] 40 mg PO BEDTIME #30 tab 06/18/18 Ferrous Sulfate 325 mg PO BID #60 tablet 06/18/18 - Past Medical/Surgical History Diabetic: No -: HIV diag ~ [address] Yohan Cardenas in [place] -: . -: Bipolar disorder Dr Krause in [place] -: Hypertension -: COPD -: Tobacco abuse -: Alcohol abuse -: Anemia likely of chronic disease -: constrictor of urethia -: Appendectomy -: Cholecystectomy -: left shoulder rotated cuff -: Right foot repair -: Right shoulder replacement -: left shoulder rotated cuff Psychosocial/ Personal History: She lives at home. She is not . - Family History Father Medical History: Kidney disease Mother Medical History: Other (see notes) Notes: Epilepsy, chronic pain - Social History Smoking Status: Current some day smoker Alcohol use: No CD- Drugs: No Caffeine use: Yes Review of Systems 10-point ROS is otherwise unremarkable General: Weakness Respiratory: As per HPI Physical Examination Temp Pulse Resp BP Pulse Ox 98.7 F 83 22 H 104/65 06/18/19 07:23 06/18/19 10:52 06/18/19 10:52 06/18/19 10:52 General: Alert, In no apparent distress, Oriented x3 HEENT: Atraumatic Neck: Supple Respiratory: Expiratory wheezes Cardiovascular: No edema, Regular rate/rhythm Gastrointestinal: Soft and benign Musculoskeletal: No clubbing, No swelling Integumentary: No rashes, No breakdown Laboratory Data (last 24 hrs) 06/18/19 05:00: PT 13.8 H, INR 1.18, APTT 27.4 06/18/19 05:00: WBC 18.0 H D, Hgb 13.2, Hct 40.6, Plt Count 213 06/18/19 05:00: Sodium 137, Potassium 3.4 L, BUN 27 H, Creatinine 1.42 H, Glucose 94 - Problems (1) Hemoptysis Current Visit: Yes Status: Acute Plan: Patient is 64 years of age admitted with severe coughing spells and hemoptysis patient has a mass in the left upper lobe suggestive of lung cancer he could be a pneumonia patient's white count is elevated and renal impairment patient's vital signs are stable oxygenation satisfactory will check room air I have ordered a CT of the chest without contrast ultrasound of the kidneys in urinalysis sputum cultures
[2019-06-18 11:53] LABS: Troponin I < 0.02 ng/mL (0.0-0.045)
[2019-06-18] MEDS: HYDROCODONE/CHLORPHEN 5 ML/OSYR PO SCH ×2 (12:29→21:04)
[2019-06-18] MEDS ORDERED: DICYCLOMINE HCL 10 MG CAP PO PRN (12:51)
--- NOTE | 2019-06-18 12:52 | RAD REPORT ---
EXAM DESCRIPTION: CT - Thorax Wo Con - 06/18/2019 12:41 pm CLINICAL HISTORY: Hemoptysis COMPARISON: June 18, 2019 x-ray left upper lobe consolidation and measures 6 centimeters. An ragini tional left lower lobe consolidation is present. Mild patchy right upper lobe opacities are seen. TECHNIQUE: Computed axial tomography of the chest was obtained. Contrast was not requested. All CT scans are performed using dose optimization technique as appropriate and may include automated exposure control or mA/KV adjustment according to patient size. FINDINGS: The evaluation of mediastinum, fernando and vessels is limited secondary to lack of IV contras t administration. Left upper lobe consolidation and measures 6 centimeters. An additional left lower lobe consolidation is present. Mild patchy right upper lobe opacities are seen. A moderate hiatal hernia. Minimal left pleural effusion. No pericardial effusion. Mild left hilar lymphadenopathy. IMPRESSION: Left upper and left lower lobe consolidation with mild right upper lobe opacities consis tent with pneumonia. This should be followed until it is clear to help exclude a post obstructive process/underlying mass
--- NOTE | 2019-06-18 12:58 | P.PN ---
Subjective Date of Service: 06/18/19 Primary Care Provider: unknown Chief Complaint: Cough and hemoptysis Subjective: Other (Patient reported some cough. Overall stable this time.) Physical Examination - Vital Signs Temperature: 96.9 F Blood Pressure: 99/58 Pulse: 80 Respirations: 20 Pulse Ox (%): 94 - Physical Exam General: Alert, In no apparent distress, Cooperative HEENT: Atraumatic Neck: Supple Respiratory: Crackles/rales (To the bases bilateral), Expiratory wheezes Cardiovascular: Regular rate/rhythm Gastrointestinal: Normal bowel sounds, No masses, No rebound, No guarding Musculoskeletal: No erythema, No tenderness, No warmth Integumentary: No erythema, No warmth, No cyanosis Neurological: Normal speech, Normal strength at 5/5 x4 extr, Normal tone, Normal affect - Studies Laboratory Data (last 24 hrs) 06/18/19 05:00: PT 13.8 H, INR 1.18, APTT 27.4 06/18/19 05:00: WBC 18.0 H D, Hgb 13.2, Hct 40.6, Plt Count 213 06/18/19 05:00: Sodium 137, Potassium 3.4 L, BUN 27 H, Creatinine 1.42 H, Glucose 94 Microbiology Data (last 24 hrs): 06/18/19 05:04 Nasopharnyx Influenza Type A Antigen Screen - Final 06/18/19 05:04 Nasopharnyx Influenza Type B Antigen Screen - Final Medications List Reviewed: Yes Assessment & Plan Discharge Plan: Home Plan to discharge in: Greater than 2 days Physician Review Additional Text: Impression: Dyspnea secondary to bilateral pneumonia with possible underlying left upper lobe mass complicated with COPD exacerbation Acute on chronic renal disease stage III Hypertension HIV Depression with anxiety GERD Plan: Dyspnea secondary to bilateral pneumonia with possible underlying left upper lobe mass complicated with COPD exacerbation: Case discussed with pulmonology. Continue antibiotic therapy. Pulmonology adjusted prednisone. Continue COPD medication. Patient reported some hemopytosis. Patient may have underlying left upper lobe mass. This will need to be further evaluated. Await further recommendations from pulmonology. Continue to wean off oxygen. Will reassess tomorrow. No evidence of sepsis at this time. Continue high dehydration. Acute on chronic renal disease stage III: Continue IV hydration. Will monitor closely. Hypertension: Hold blood pressure medication at this time. HIV: Continue HIV medication Depression with anxiety: Continue medication GERD: Continue medication Time Spent Managing Pts Care (In Minutes): 55
[2019-06-18] MEDS: TIOTROPIUM 5 SPRAYS/INHALER IH SCH (13:00)
[2019-06-18 13:03] LABS: Urine Appearance CLOUDY; Urine Bilirubin NEGATIVE (NEG); Urine Blood NEGATIVE (NEG); Urine Color DK YELLOW; Urine Glucose NEGATIVE (NEG); Urine Microscopic Reflex ORDER UMIC; Urine Protein NEGATIVE (NEG); Urine Urobilinogen 0.2 mg/dL (0.2-1.0); Urine pH 5.5 (5.0-7.0)
--- NOTE | 2019-06-18 13:04 | RAD REPORT ---
EXAM DESCRIPTION: US - Renal Ultrasound-Complete - 06/18/2019 12:53 pm CLINICAL HISTORY: Acute renal insufficiency COMPARISON: None. FINDINGS: The right kidney measures 11 cm with an increased echotexture. 3.6 centimeter cyst. 2.6 ce ntimeter cyst The left kidney measures 11 cm with an increased echotexture. 4 centimeter cyst previously measured 2 .7 centimeters Hydronephrosis is not seen. The bladder is decompressed and poorly evaluated IMPRESSION: Renal cysts Increased renal echotexture consistent with parenchymal disease
[2019-06-18 13:16] LABS: Urine Bacteria <20 /HPF (<20); Urine RBC <5 /HPF (NONE SEEN)
[2019-06-18 13:17] LABS: Urine Culture Reflex Order NOT NEEDED; Urine Mucus LIGHT /HPF (NONE SEEN)
[2019-06-18] MEDS: IPRATROPIUM BROM 0.5MG/2.5ML NEB SCH ×2 (14:30→20:00)
[2019-06-18] MEDS: PANTOPRAZOLE 40MG TABLET PO SCH (16:30)
[2019-06-18] MEDS: MORPHINE 2 MG/ML SYR IV PRN ×2 (16:33→22:38)
[2019-06-18] MEDS: LORAZEPAM 0.5 MG TABLET PO PRN (19:34)
[2019-06-18 20:37] LABS: CKMB Creatine Kinase MB 1.8 ng/mL (0.3-3.6); Troponin I < 0.02 ng/mL (0.0-0.045)
[2019-06-18] MEDS: RALTEGRAVIR POTASSIUM 400 MG TABLET PO SCH (21:00)
[2019-06-18] MEDS: TENOFOV ALAFENAM PO SCH (21:00)
[2019-06-18] MEDS: EMTRICITABINE PO SCH (21:00)
[2019-06-18] MEDS: predniSONE 20 MG TAB PO SCH (21:05)
[2019-06-18] MEDS: FERROUS SULFATE 325 MG TAB PO SCH (21:05)
[2019-06-18] MEDS: BUSPIRONE HCL 5 MG TABLET PO SCH (21:05)
[2019-06-18] MEDS ORDERED: VANCOMYCIN 1 GM in NA CHLORIDE 0.9% 500 ML IVPB ONE (23:09)
[2019-06-18] MEDS ORDERED: VANCOMYCIN 1 GM in NA CHLORIDE 0.9% 250 ML IVPB ONE (23:46)
[2019-06-18] MEDS ORDERED: VANCOMYCIN 1 GM/VIAL ONE (23:58)
[2019-06-19] MEDS ORDERED: NA CHLORIDE 0.9% 250 ML ONE (00:09)
[2019-06-19] MEDS ORDERED: MAGNES/ALUMIN/SIMET 30ML UCUP PO PRN (01:04)
[2019-06-19] MEDS: IPRATROPIUM BROM 0.5MG/2.5ML NEB SCH ×4 (01:08→19:50)
[2019-06-19] MEDS ORDERED: FAMOTIDINE 20 MG/2 ML VIAL IV ONE (01:15)
[2019-06-19] MEDS: NA CHLORIDE 0.9% 1,000 ML IV SCH (03:00)
[2019-06-19] MEDS ORDERED: METOPROLOL TARTRATE 5 MG/5 ML INJ IV STA (04:23)
[2019-06-19 04:58] LABS: Protime INR 1.23
[2019-06-19 05:00] LABS: Absolute Lymphocytes (CBC) 0.7 K/uL (0.7-4.9); Basophils % 0.2 % (0-1.3); Hematocrit 35.7 % (36.0-45.0); Lymphocytes % 3.7 % (15.3-44.8); RBC Red Blood Cell Count 4.26 M/uL (3.86-4.86)
[2019-06-19 05:18] LABS: CKMB Creatine Kinase MB 2.1 ng/mL (0.3-3.6); Troponin I < 0.02 ng/mL (0.0-0.045)
[2019-06-19 05:20] LABS: Albumin 2.6 g/dL (3.4-5.0); Bilirubin Total 0.3 mg/dL (0.2-1.0); Protein, Total 6.6 g/dL (6.4-8.2)
[2019-06-19 05:22] LABS: Potassium 2.9 mmol/L (3.5-5.1)
[2019-06-19] MEDS: METOPROLOL TAR 50 MG TAB PO SCH ×3 (05:38→19:59)
[2019-06-19] MEDS: MORPHINE 2 MG/ML SYR IV PRN ×2 (05:43→16:09)
[2019-06-19] MEDS: KCL 20 MEQ/100 mL IVPB 20 MEQ/100 ML BAG IV SCH ×2 (05:55→08:53)
[2019-06-19] MEDS: ARFORMOTEROL TARTRATE 15 MCG/2 ML VIAL.NEB NEB SCH ×2 (08:09→19:50)
[2019-06-19] MEDS: predniSONE 20 MG TAB PO SCH ×2 (08:53→19:59)
[2019-06-19] MEDS: CEFEPIME/SWI 1gm 10 ML IV SCH (08:53)
[2019-06-19] MEDS: SERTRALINE HCL 100 MG TAB PO SCH (08:53)
[2019-06-19] MEDS: PANTOPRAZOLE 40MG TABLET PO SCH ×2 (08:54→16:09)
[2019-06-19] MEDS: BUSPIRONE HCL 5 MG TABLET PO SCH ×2 (08:54→19:58)
[2019-06-19] MEDS: NICOTINE 21 MG/PAT TD SCH (08:54)
[2019-06-19] MEDS: ENOXAPARIN 40 MG/0.4 ML SQ SCH (08:54)
[2019-06-19] MEDS: FERROUS SULFATE 325 MG TAB PO SCH ×2 (08:54→19:58)
[2019-06-19] MEDS: VANCOMYCIN 1.75 GM in NA CHLORIDE 0.9% 500 ML IVPB SCH (08:55)
[2019-06-19] MEDS: HYDROCODONE/CHLORPHEN 5 ML/OSYR PO SCH ×2 (08:55→20:02)
[2019-06-19] MEDS: TIOTROPIUM 5 SPRAYS/INHALER IH SCH (09:00)
[2019-06-19] MEDS: RALTEGRAVIR POTASSIUM 400 MG TABLET PO SCH (09:00)
--- NOTE | 2019-06-19 09:34 | RAD REPORT ---
EXAM DESCRIPTION: RAD - Chest Pa And Lat (2 Views) - 06/19/2019 8:46 am CLINICAL HISTORY: follow up pneumonia, COPD Chest pain. COMPARISON: Chest Single View dated 06/18/2019; Chest Single View dated 06/17/2019; Chest Single View dated 04/26/2019; Chest Pa And Lat (2 Views) dated 04/07/2019 FINDINGS: There has been mild improvement in left mid lung consolidation since the comparative study . Small left pleural effusion appears stable. The heart is moderately enlarged. Bilateral shoulder ar throplasties noted. IMPRESSION: Mild improvement in left-sided pneumonia.
--- NOTE | 2019-06-19 11:31 | P.PN ---
Subjective Date of Service: 06/19/19 Primary Care Provider: unknown Chief Complaint: Cough and hemoptysis Subjective: Improving, Doing well Physical Examination - Vital Signs Temperature: 97.1 F Blood Pressure: 135/77 Pulse: 95 Respirations: 18 Pulse Ox (%): 96 - Physical Exam General: Alert, In no apparent distress, Oriented x3, Cooperative HEENT: Atraumatic Neck: Supple Respiratory: Other (better air movement) Cardiovascular: Normal pulses, Regular rate/rhythm Gastrointestinal: Normal bowel sounds, Soft and benign, Non-distended, No tenderness, No masses, No rebound, No guarding Musculoskeletal: No erythema, No tenderness, No warmth Integumentary: No tenderness/swelling, No erythema, No warmth, No cyanosis Neurological: Normal speech, Normal strength at 5/5 x4 extr, Normal tone, Normal affect - Studies Microbiology Data (last 24 hrs): 06/18/19 05:04 Nasopharnyx Influenza Type A Antigen Screen - Final 06/18/19 05:04 Nasopharnyx Influenza Type B Antigen Screen - Final Medications List Reviewed: Yes Assessment & Plan Discharge Plan: Home Plan to discharge in: 24 Hours Physician Review Additional Text: Impression: Dyspnea secondary to bilateral pneumonia with possible underlying left upper lobe mass complicated with COPD exacerbation and blood cultures positive Acute on chronic renal disease stage III Hypertension HIV Depression with anxiety GERD Hypokalemia Plan: Dyspnea secondary to bilateral pneumonia with possible underlying left upper lobe mass complicated with COPD exacerbation and blood cultures positive: Chest x-ray shows improvement. Blood cultures positive this morning. Vancomycin added. Currently on cefepime and vancomycin. Case discussed with pulmonology. Patient shows improvement. Continue COPD treatment. Possible left upper lobe mass can be further worked up as an outpatient. Encourage ambulation. Anticipate discharge in the next 1-2 days pending clinical improvement and culture results. I will turn the service over to the hospitalist team tomorrow. I will go the plan of care with him. Acute on chronic renal disease stage III: Continue IV hydration. Will monitor closely. Hypertension: Hold blood pressure medication at this time. May need to restart medication once BP continues to elevate. HIV: Continue HIV medication Depression with anxiety: Continue medication GERD: Continue medication Hypokalemia: Electrolyte protocol in place. Time Spent Managing Pts Care (In Minutes): 55
[2019-06-19] MEDS: HYDROCODONE/APAP 5/325 MG TAB PO PRN ×2 (11:38→20:03)
--- NOTE | 2019-06-19 12:24 | P.PN ---
Subjective Date of Service: 06/19/19 Primary Care Provider: unknown Chief Complaint: Cough and hemoptysis Subjective: No new changes (Patient is not feeling well and send about the lung mass in the renal cyst still coughing of blood) Review of Systems General: Weakness Respiratory: Cough, Shortness of Breath Physical Examination - Vital Signs Temperature: 97.1 F Blood Pressure: 137/82 Pulse: 102 Respirations: 18 Pulse Ox (%): 98 - Physical Exam General: Alert, In no apparent distress, Oriented x3 Neck: Supple Respiratory: Clear to auscultation bilaterally, Diminished Cardiovascular: No edema, Regular rate/rhythm, Normal S1 S2 - Studies Medications List Reviewed: Yes Assessment & Plan - Problems (Diagnosis) (1) Hemoptysis Current Visit: Yes Status: Acute Plan: Patient is 64 years of age admitted with severe coughing spells and hemoptysis patient has a mass in the left upper lobe suggestive of lung cancer he could be a pneumonia patient's white count is elevated and renal impairment patient's vital signs are stable oxygenation satisfactory will check room air I have ordered a CT of the chest without contrast ultrasound of the kidneys in urinalysis sputum cultures (2) Pneumococcal pneumonia Current Visit: Yes Status: Acute Plan: Mild improvement of left lung pneumonia still has hemoptysis CT scan reviewed blood cultures positive for Gram positive Kelly and pairs and chains change to Rocephin renal function is now normal Dc IV fluids possible discharge in 2 days labs read she has a stable renal cyst 2.6 cm white count is still elevated culture results pending he had a follow-up CT scan or a chest x-ray in about 4 weeks Qualifiers: Laterality: left Physician Review Additional Text: Impression: Dyspnea secondary to bilateral pneumonia with possible underlying left upper lobe mass complicated with COPD exacerbation and blood cultures positive Acute on chronic renal disease stage III Hypertension HIV Depression with anxiety GERD Hypokalemia Plan: Dyspnea secondary to bilateral pneumonia with possible underlying left upper lobe mass complicated with COPD exacerbation and blood cultures positive: Chest x-ray shows improvement. Blood cultures positive this morning. Vancomycin added. Currently on cefepime and vancomycin. Case discussed with pulmonology. Patient shows improvement. Continue COPD treatment. Possible left upper lobe mass can be further worked up as an outpatient. Encourage ambulation. Anticipate discharge in the next 1-2 days pending clinical improvement and culture results. I will turn the service over to the hospitalist team tomorrow. I will go the plan of care with him. Acute on chronic renal disease stage III: Continue IV hydration. Will monitor closely. Hypertension: Hold blood pressure medication at this time. May need to restart medication once BP continues to elevate. HIV: Continue HIV medication Depression with anxiety: Continue medication GERD: Continue medication Hypokalemia: Electrolyte protocol in place.
[2019-06-19] MEDS: CEFTRIAXONE/SWI 1gm 1 GM/10 ML SYR IVP SCH (12:45)
--- NOTE | 2019-06-19 15:56 | EKG ---
Test Date: 2019-06-19 Test Time: 04:06:31 Telegraph Service Clerk: RT MEASUREMENT RESULTS: Intervals: Rate: 130 [place]: QRSD: 84 QT: 304 QTc: 447 [place]: P: OK: QRS: -6 T: 194 INTERPRETIVE STATEMENTS: Atrial fibrillation with rapid ventricular response Minimal voltage criteria for LVH, may be normal variant ST & T wave abnormality, consider anterolateral ischemia or digitalis effect Abnormal ECG Compared to ECG 06/18/2019 05:11:42 ST (T wave) deviation now present Possible ischemia now present Sinus rhythm no longer present Early repolarization no longer present Electronically Signed On 06-19-19 15:52:04 ACCELERATOR OPERATOR by Per Crane
[2019-06-19 19:55] VITALS: BMI 35.3
[2019-06-19] MEDS: TENOFOV ALAFENAM PO SCH (20:01)
[2019-06-19] MEDS: EMTRICITABINE PO SCH (20:01)
[2019-06-19] MEDS: LORAZEPAM 0.5 MG TABLET PO PRN (20:03)
[2019-06-19] MEDS: RALTEGRAVIR POTASSIUM 400 MG PO SCH (21:00)
[2019-06-19] MEDS ORDERED: HYDROMORPHONE HCL 1 MG/ML INJ IV ONE (23:45)
[2019-06-20] MEDS: IPRATROPIUM BROM 0.5MG/2.5ML NEB SCH ×4 (01:52→20:50)
[2019-06-20] MEDS: HYDROCODONE/APAP 5/325 MG TAB PO PRN ×3 (04:26→22:52)
[2019-06-20 05:56] LABS: Absolute Lymphocytes (CBC) 0.9 K/uL (0.7-4.9); Basophils % 0.1 % (0-1.3); Hematocrit 35.5 % (36.0-45.0); Lymphocytes % 6.5 % (15.3-44.8); MPV 8.4 fL (7.6-11.3); RBC Red Blood Cell Count 4.27 M/uL (3.86-4.86)
[2019-06-20 06:11] LABS: Magnesium 2.1 mg/dL (1.8-2.4); Potassium 3.5 mmol/L (3.5-5.1)
[2019-06-20] MEDS: BUSPIRONE HCL 5 MG TABLET PO SCH ×2 (07:55→20:29)
[2019-06-20] MEDS: METOPROLOL TAR 50 MG TAB PO SCH ×3 (07:55→20:28)
[2019-06-20] MEDS: predniSONE 20 MG TAB PO SCH ×2 (07:55→20:30)
[2019-06-20] MEDS: SERTRALINE HCL 100 MG TAB PO SCH (07:55)
[2019-06-20] MEDS: CEFTRIAXONE/SWI 1gm 1 GM/10 ML SYR IVP SCH (07:55)
[2019-06-20] MEDS: FERROUS SULFATE 325 MG TAB PO SCH ×2 (07:56→20:30)
[2019-06-20] MEDS: PANTOPRAZOLE 40MG TABLET PO SCH ×2 (07:56→16:43)
[2019-06-20] MEDS: HYDROCODONE/CHLORPHEN 5 ML/OSYR PO SCH ×2 (07:56→20:26)
[2019-06-20] MEDS: ENOXAPARIN 40 MG/0.4 ML SQ SCH (07:56)
[2019-06-20] MEDS: NICOTINE 21 MG/PAT TD SCH (07:56)
[2019-06-20] MEDS: VANCOMYCIN 1.75 GM in NA CHLORIDE 0.9% 500 ML IVPB SCH (07:57)
[2019-06-20] MEDS ORDERED: HYDROCODONE/APAP 10/325 TAB PO ONE (08:00)
[2019-06-20] MEDS: ARFORMOTEROL TARTRATE 15 MCG/2 ML VIAL.NEB NEB SCH ×2 (08:05→20:50)
[2019-06-20] MEDS: TIOTROPIUM 5 SPRAYS/INHALER IH SCH (08:09)
[2019-06-20] MEDS: RALTEGRAVIR POTASSIUM 400 MG PO SCH ×2 (09:00→20:31)
--- NOTE | 2019-06-20 09:17 | P.PN ---
Subjective Date of Service: 06/20/19 Primary Care Provider: unknown Chief Complaint: Cough and hemoptysis Anterior wall chest pain due to cough. Chronic back pain. Hemoptysis have resolved. Physical Examination - Vital Signs Temperature: 97.3 F Blood Pressure: 175/108 Pulse: 115 Respirations: 16 Pulse Ox (%): 95 - Physical Exam General: Alert, Obese HEENT: Atraumatic, PERRLA, EOMI Neck: Supple, JVD not distended Respiratory: Diminished, Crackles/rales, Expiratory wheezes Cardiovascular: Regular rate/rhythm, Normal S1 S2 Gastrointestinal: Normal bowel sounds, No tenderness Musculoskeletal: No tenderness Integumentary: No rashes Neurological: Normal speech, Normal tone, Normal affect Lymphatics: No axilla or inguinal lymphadenopathy - Studies Microbiology Data (last 24 hrs): 06/18/19 05:20 Blood - Blood Gram Stain - Final 06/18/19 05:20 Blood - Blood Gram Stain - Final 06/18/19 05:00 Blood - Blood Gram Stain - Final 06/18/19 05:00 Blood - Blood Gram Stain - Final Medications List Reviewed: Yes Assessment And Plan - Plan #Dyspnea secondary to bilateral pneumonia with possible underlying left upper lobe mass complicated with COPD exacerbation and blood cultures positive: -Continue supplemental oxygen and wean as tolerated. -Duonebs and treat underlying etiology. #Community-acquired pneumonia-with bacteremia, final culture pending. repeat blood cultures ordered today. -continue on IV antibiotics, vancomycin and cefepime. -CT chest with left upper lobe infiltrate/mass. Requires repeat CT abdomen once antibiotics is completed. -fork truck operator consulted. -will treat cough with antitussive. # COPD exacerbation-continue DuoNeb, supplemental oxygen and steroids. -will treat underlining infection as well. -pulmonary toileting. # Chronic pain-continue oral analgesics. #Acute on chronic renal disease stage III: Continue IV hydration. Creatinine resolved to baseline. #Hypertension: Hypertensive this morning, resume antihypertensive some monitor blood pressure closely. #HIV: Continue HIV medication #Depression with anxiety: Continue medication #GERD: Continue medication #Hypokalemia: Electrolyte protocol in place. DVT prophylaxis-SCD Disposition-pending clinical improvement.
[2019-06-20] MEDS: LORAZEPAM 0.5 MG TABLET PO PRN ×2 (10:03→21:54)
[2019-06-20] MEDS: lisinopriL 20 MG TAB PO SCH ×2 (12:28→20:27)
[2019-06-20] MEDS: GUAIFENESIN/DM 5 ML UCUP PO PRN ×2 (12:37→18:45)
[2019-06-20] MEDS ORDERED: HYDRALAZINE HCL 20 MG/ML VIAL IV PRN (15:31)
[2019-06-20] MEDS ORDERED: HYDROMORPHONE HCL 0.5 MG/0.5 ML INJ IV ONE (16:00)
[2019-06-20] MEDS: HYDRALAZINE HCL 25 MG TABLET PO SCH (20:28)
[2019-06-20] MEDS: EMTRICITABINE PO SCH (20:31)
[2019-06-20] MEDS: TENOFOV ALAFENAM PO SCH (20:31)
[2019-06-20] MEDS ORDERED: HOME MED 1 EA UNK (Esomeprazole Mag Trihydrate [Nexium] 40 MG) PO SCH (21:00)
[2019-06-20] MEDS ORDERED: METOPROLOL TARTRATE 5 MG/5 ML INJ IV STA (23:16)
[2019-06-20] MEDS ORDERED: cloNIDine HCL 0.1 MG TAB PO ONE (23:16)
[2019-06-21] MEDS: IPRATROPIUM BROM 0.5MG/2.5ML NEB SCH ×4 (01:10→19:50)
[2019-06-21 05:27] LABS: Absolute Lymphocytes (CBC) 0.9 K/uL (0.7-4.9); Basophils % 0.2 % (0-1.3); Hematocrit 35.9 % (36.0-45.0); Lymphocytes % 9.9 % (15.3-44.8); MPV 7.9 fL (7.6-11.3); RBC Red Blood Cell Count 4.35 M/uL (3.86-4.86)
[2019-06-21] MEDS: HYDROCODONE/APAP 5/325 MG TAB PO PRN ×2 (05:27→15:31)
--- NOTE | 2019-06-21 06:49 | EKG ---
Test Date: 2019-06-20 Test Time: 15:16:56 Bark Peeler: STEPHANIE MEASUREMENT RESULTS: Intervals: Rate: 116 [place]: QRSD: 78 QT: 320 QTc: 444 [place]: P: LA: QRS: -1 T: 186 INTERPRETIVE STATEMENTS: Atrial fibrillation with rapid ventricular response Minimal voltage criteria for LVH, may be normal variant Nonspecific ST and T wave abnormality, probably digitalis effect Abnormal ECG Compared to ECG 06/19/2019 04:06:31 Possible ischemia no longer present ST (T wave) deviation still present Electronically Signed On 06-21-19 06:48:27 TIPPLE OILER by Rich Grissom
[2019-06-21 07:01] LABS: BUN Blood Urea Nitrogen 17 mg/dL (7-18); Bicarbonate 27 mmol/L (21-32); Glucose Level 141 mg/dL (74-106); Potassium 3.1 mmol/L (3.5-5.1); Sodium Level 143 mmol/L (136-145)
--- NOTE | 2019-06-21 08:35 | P.PN ---
Subjective Date of Service: 06/21/19 Primary Care Provider: unknown Chief Complaint: Pneumococcal pneumonia Patient is complaining of cough and hypertension is very anxious reasons chest pain Review of Systems General: Weakness Respiratory: Cough, Shortness of Breath Cardiovascular: Chest Pain Physical Examination - Vital Signs Temperature: 97.4 F Blood Pressure: 160/90 Pulse: 104 Respirations: 18 Pulse Ox (%): 97 - Physical Exam General: Alert, Oriented x3, Mild distress Respiratory: Clear to auscultation bilaterally Cardiovascular: No edema, Normal S1 S2 Gastrointestinal: Normal bowel sounds - Studies Microbiology Data (last 24 hrs): 06/18/19 05:20 Blood - Blood Aerobic Blood Culture - Final Strep Pneumoniae 06/18/19 05:20 Blood - Blood Blood Culture Gram Stain - Final 06/18/19 05:20 Blood - Blood Anaerobic Blood Culture - Final Strep Pneumoniae 06/18/19 05:20 Blood - Blood Gram Stain - Final 06/18/19 05:00 Blood - Blood Aerobic Blood Culture - Final Strep Pneumoniae 06/18/19 05:00 Blood - Blood Blood Culture Gram Stain - Final 06/18/19 05:00 Blood - Blood Anaerobic Blood Culture - Final Strep Pneumoniae 06/18/19 05:00 Blood - Blood Gram Stain - Final Medications List Reviewed: Yes Assessment & Plan - Problems (Diagnosis) (1) Pneumococcal pneumonia Current Visit: Yes Status: Acute Plan: Patient admitted with pneumococcal pneumonia and bacteremia clinically doing better white count is declining complain of severe coughing spells blood pressure medication resume I have added some cough medication reduce prednisone plan for discharge tomorrow check room air pulse ox white count is now normal can be discharged home on a cephalosporin for another week to resume her home medications she will also need a bronchodilator patient uses a her 's inhalers Qualifiers: Laterality: left Discharge Plan: Home Plan to discharge in: 24 Hours Physician Review Additional Text: Impression: Dyspnea secondary to bilateral pneumonia with possible underlying left upper lobe mass complicated with COPD exacerbation and blood cultures positive Acute on chronic renal disease stage III Hypertension HIV Depression with anxiety GERD Hypokalemia Plan: Dyspnea secondary to bilateral pneumonia with possible underlying left upper lobe mass complicated with COPD exacerbation and blood cultures positive: Chest x-ray shows improvement. Blood cultures positive this morning. Vancomycin added. Currently on cefepime and vancomycin. Case discussed with pulmonology. Patient shows improvement. Continue COPD treatment. Possible left upper lobe mass can be further worked up as an outpatient. Encourage ambulation. Anticipate discharge in the next 1-2 days pending clinical improvement and culture results. I will turn the service over to the hospitalist team tomorrow. I will go the plan of care with him. Acute on chronic renal disease stage III: Continue IV hydration. Will monitor closely. Hypertension: Hold blood pressure medication at this time. May need to restart medication once BP continues to elevate. HIV: Continue HIV medication Depression with anxiety: Continue medication GERD: Continue medication Hypokalemia: Electrolyte protocol in place.
[2019-06-21] MEDS: ARFORMOTEROL TARTRATE 15 MCG/2 ML VIAL.NEB NEB SCH ×2 (08:55→19:50)
[2019-06-21] MEDS ORDERED: AMLODIPINE 10 MG TAB PO SCH (09:00)
[2019-06-21] MEDS: TIOTROPIUM 5 SPRAYS/INHALER IH SCH (09:00)
[2019-06-21] MEDS: SERTRALINE HCL 100 MG TAB PO SCH (09:13)
[2019-06-21] MEDS: lisinopriL 20 MG TAB PO SCH ×2 (09:13→20:16)
[2019-06-21] MEDS: BUSPIRONE HCL 5 MG TABLET PO SCH ×2 (09:14→20:16)
[2019-06-21] MEDS: FERROUS SULFATE 325 MG TAB PO SCH ×2 (09:14→20:17)
[2019-06-21] MEDS: predniSONE 10 MG TAB PO SCH ×2 (09:15→20:17)
[2019-06-21] MEDS: METOPROLOL TAR 50 MG TAB PO SCH ×2 (09:15→20:16)
[2019-06-21] MEDS: PANTOPRAZOLE 40MG TABLET PO SCH ×2 (09:16→15:32)
[2019-06-21] MEDS: RALTEGRAVIR POTASSIUM 400 MG PO SCH ×2 (09:16→20:18)
[2019-06-21] MEDS: ENOXAPARIN 40 MG/0.4 ML SQ SCH (09:17)
[2019-06-21] MEDS: NICOTINE 21 MG/PAT TD SCH (09:17)
[2019-06-21] MEDS: HYDROCODONE/CHLORPHEN 5 ML/OSYR PO SCH ×2 (09:18→20:17)
[2019-06-21] MEDS: PROMETHAZINE-DM 5 ML OSYR PO SCH ×3 (09:18→20:17)
[2019-06-21] MEDS: CEFTRIAXONE/SWI 1gm 1 GM/10 ML SYR IVP SCH (09:19)
[2019-06-21] MEDS: LORAZEPAM 0.5 MG TABLET PO PRN ×2 (10:20→20:29)
[2019-06-21] MEDS: GUAIFENESIN/DM 5 ML UCUP PO PRN ×2 (10:21→21:28)
[2019-06-21] MEDS ORDERED: cloNIDine HCL 0.1 MG TAB PO PRN (12:31)
--- NOTE | 2019-06-21 12:35 | P.PN ---
Subjective Date of Service: 06/21/19 Primary Care Provider: unknown Chief Complaint: Pneumococcal pneumonia Tearful. very anxious to go home. Requiring less supplemental oxygen. cough remains, less productive. Review of Systems 10-point ROS is otherwise unremarkable Physical Examination - Vital Signs Temperature: 97.4 F Blood Pressure: 176/131 Pulse: 116 Respirations: 18 Pulse Ox (%): 97 - Physical Exam General: Alert, In no apparent distress HEENT: Atraumatic, PERRLA, EOMI Neck: Supple, JVD not distended Respiratory: Clear to auscultation bilaterally, Normal air movement Cardiovascular: Regular rate/rhythm, Normal S1 S2 Gastrointestinal: Normal bowel sounds, No tenderness Musculoskeletal: No tenderness Integumentary: No rashes Neurological: Normal speech, Normal tone, Normal affect Lymphatics: No axilla or inguinal lymphadenopathy - Studies Laboratory Tests 06/21/19 06/21/19 05:09 06:12 RBC 4.35 Hgb 11.7 L Hct 35.9 L MCH 26.8 L Neutrophils % 85.3 H Sodium 143 Potassium 3.1 L Chloride 109 H Glucose 141 H Calcium 8.3 L Microbiology Data (last 24 hrs): 06/18/19 05:20 Blood - Blood Aerobic Blood Culture - Final Strep Pneumoniae 06/18/19 05:20 Blood - Blood Blood Culture Gram Stain - Final 06/18/19 05:20 Blood - Blood Anaerobic Blood Culture - Final Strep Pneumoniae 06/18/19 05:20 Blood - Blood Gram Stain - Final 06/18/19 05:00 Blood - Blood Aerobic Blood Culture - Final Strep Pneumoniae 06/18/19 05:00 Blood - Blood Blood Culture Gram Stain - Final 06/18/19 05:00 Blood - Blood Anaerobic Blood Culture - Final Strep Pneumoniae 06/18/19 05:00 Blood - Blood Gram Stain - Final Medications List Reviewed: Yes Assessment And Plan - Plan #Dyspnea secondary to bilateral pneumonia with possible underlying left upper lobe mass complicated with COPD exacerbation and blood cultures positive: -Continue supplemental oxygen and wean as tolerated. -Duonebs and treat underlying etiology. #Community-acquired pneumonia-continue on IV antibiotics, switched to ceftriaxone. -CT chest with left upper lobe infiltrate/mass. Requires repeat CT abdomen once antibiotics is completed. -personal care service provider consulted. -will treat cough with antitussive. # Strep pneumonia bacteremia-resp source. repeat blood cultures from yesterday shows no growth in 24 hr. -continue IV ceftriaxone. # COPD exacerbation-continue DuoNeb, supplemental oxygen and steroids. -will treat underlining infection as well. -pulmonary toileting. #Hypertension- BP is uncontrolled. Resumed home medications. -Monitor BP. Add clonidine prn -Elevation maybe related to anxiety. # Chronic pain-continue oral analgesics. #Acute on chronic renal disease stage III: Discontinue IV hydration. Creatinine resolved to baseline. #HIV: Continue HIV medication #Depression with anxiety: Continue medication #GERD: Continue medication #Hypokalemia: Electrolyte protocol in place. DVT prophylaxis-SCD Disposition-DC in a.m pending repeat bcx final report and BP improvment.
[2019-06-21] MEDS: HYDRALAZINE HCL 25 MG TABLET PO SCH (20:16)
[2019-06-21] MEDS: TENOFOV ALAFENAM PO SCH (20:18)
[2019-06-21] MEDS: EMTRICITABINE PO SCH (20:18)
[2019-06-21] MEDS: POTASSIUM 25 MEQ EFFERV TAB PO SCH (23:10)
[2019-06-22] MEDS: IPRATROPIUM BROM 0.5MG/2.5ML NEB SCH ×2 (02:10→08:00)
[2019-06-22] MEDS: PROMETHAZINE-DM 5 ML OSYR PO SCH ×2 (05:03→08:43)
[2019-06-22] MEDS: GUAIFENESIN/DM 5 ML UCUP PO PRN (05:03)
[2019-06-22] MEDS: LORAZEPAM 0.5 MG TABLET PO PRN (05:54)
[2019-06-22] MEDS: ARFORMOTEROL TARTRATE 15 MCG/2 ML VIAL.NEB NEB SCH (08:00)
[2019-06-22 08:25] LABS: Absolute Lymphocytes (CBC) 1.7 K/uL (0.7-4.9); Basophils % 0.2 % (0-1.3); Hematocrit 36.6 % (36.0-45.0); Lymphocytes % 15.6 % (15.3-44.8); MPV 7.8 fL (7.6-11.3); RBC Red Blood Cell Count 4.43 M/uL (3.86-4.86)
[2019-06-22 08:32] LABS: ALT/SGPT 25 U/L (12-78); AST/SGOT 23 U/L (15-37); Albumin 2.8 g/dL (3.4-5.0); Alkaline Phosphatase 63 U/L (45-117); BUN Blood Urea Nitrogen 12 mg/dL (7-18); Bicarbonate 32 mmol/L (21-32); Bilirubin Total 0.5 mg/dL (0.2-1.0); Glucose Level 88 mg/dL (74-106); Potassium 3.2 mmol/L (3.5-5.1); Protein, Total 6.6 g/dL (6.4-8.2); Sodium Level 142 mmol/L (136-145)
[2019-06-22] MEDS: METOPROLOL TAR 50 MG TAB PO SCH (08:43)
[2019-06-22] MEDS: HYDROCODONE/CHLORPHEN 5 ML/OSYR PO SCH (08:43)
[2019-06-22] MEDS: lisinopriL 20 MG TAB PO SCH (08:44)
[2019-06-22] MEDS: BUSPIRONE HCL 5 MG TABLET PO SCH (08:45)
[2019-06-22] MEDS: FERROUS SULFATE 325 MG TAB PO SCH (08:46)
[2019-06-22] MEDS: SERTRALINE HCL 100 MG TAB PO SCH (08:46)
[2019-06-22] MEDS: PANTOPRAZOLE 40MG TABLET PO SCH (08:46)
[2019-06-22] MEDS: predniSONE 10 MG TAB PO SCH (08:47)
[2019-06-22] MEDS: POTASSIUM 25 MEQ EFFERV TAB PO SCH (08:47)
[2019-06-22] MEDS: NICOTINE 21 MG/PAT TD SCH (08:48)
[2019-06-22] MEDS: CEFTRIAXONE/SWI 1gm 1 GM/10 ML SYR IVP SCH (08:48)
[2019-06-22] MEDS: ENOXAPARIN 40 MG/0.4 ML SQ SCH (08:48)
[2019-06-22] MEDS: RALTEGRAVIR POTASSIUM 400 MG PO SCH (08:49)
[2019-06-22] MEDS: TIOTROPIUM 5 SPRAYS/INHALER IH SCH (08:49)
[2019-06-22] MEDS ORDERED: NIFEDIPINE XL 60 MG TABLET PO SCH (09:00)
[2019-06-22 09:04] LABS: Platelet Estimate ADEQ
[2019-06-22 09:05] LABS: Anisocytosis 1+; Blood Morphology Comment NOTED (NOT SEEN)
[2019-06-22 09:12] VITALS: O2SAT 94
[2019-06-22 10:13] LABS: Polychromasia 1+
--- NOTE | 2019-06-22 10:27 | P.DS ---
Admission Date: 06/18/19 Discharge Date: 06/22/19 Primary Care Provider: unknown Disposition: ROUTINE DISCHARGE Discharge Condition: GOOD Reason for Admission: Pneumococcal pneumonia Consultations: Pulmonologisg - Problems (1) Bacteremia Current Visit: Yes Status: Acute (2) Hypertension Current Visit: Yes Status: Acute (3) Pneumococcal pneumonia Current Visit: Yes Status: Acute Qualifiers: Laterality: left (4) Anxiety Onset Date: 05/26/15 Current Visit: No Status: Chronic (5) COPD (chronic obstructive pulmonary disease) Onset Date: 05/26/15 Current Visit: No Status: Chronic Qualifiers: (6) HIV positive Onset Date: 10/23/14 Current Visit: No Status: Chronic (7) Diabetes mellitus Current Visit: Yes Status: Acute Hospital Course: Ms Fleming is a 64yoF w/ pmhx of HIV, TIA, HTN,COPD, bipolar- depression and obesity who presented to the ER due to worsening CP and SOB. She stated that she took phentermine double the usual dose and started to have chest pain thereafter, radiated up to the back of her neck w/ sob and STEPHENS. She reported a productive w/ hemoptysis cough x 3 weeks. She is exposed to her grandchildren whom she states were always sick. She was found to have hypoxia w/ o2 sat < 90% . thus she is started on supplemental o2 and due nebs with improvement. Initial evaluation was significant for leucocytosis (wbc 18), hypoxia ( o2sat < 90%); marilynn (Cr 1.4), poss CHF ( bnp > 2716). Initial evaluation found patient to have bilateral pneumonia with questionable left upper lobe mass on the CT scan of the chest. She was started on IV antibiotics, blood cultures were drawn and she continued on supportive therapy. Left upper lobe mass can be worked up as outpatient after treatment for community acquired pneumonia. This has been relayed to patient. Her blood cultures became positive for strep pneumoniae. Repeat blood cultures and negative thus far. She was treated for COPD exacerbation and her respiratory symptoms have improved she has been weaned off supplemental oxygen successfully. She will be discharged home on oral antibiotics to complete for 2 weeks. ACS was ruled out. Her CBC was positive for promyelocytes and has been sent for further studies with flow cytometry. Patient will follow up with PCP for results of this flow cytometry. She had a significant uncontrolled hypertension, mostly diastolic. She required multiple antihypertensive for blood pressure treatment. Her medications have been revised to optimize blood pressure. She also had acute on chronic kidney disease that has resolved. Serum creatinine is currently at baseline. Patient has a history of anxiety disorder, continued to be anxious while inpatient which was treated. Her hemoglobin A1c was consistent with diabetes and she has been initiated on metformin. Lifestyle modification and close follow up has been recommended. She remained hemodynamically stable for discharge home. She will follow up with her PCP for close monitoring. Vital Signs/Physical Exam: Temp Pulse Resp BP Pulse Ox 97.4 F 115 H 18 140/99 H 95 06/22/19 08:00 06/22/19 08:44 06/22/19 08:00 06/22/19 08:44 06/22/19 08:00 General: Alert, In no apparent distress, Obese HEENT: Atraumatic, PERRLA, EOMI Neck: Supple, JVD not distended Respiratory: Clear to auscultation bilaterally, Normal air movement Cardiovascular: Regular rate/rhythm, Normal S1 S2 Gastrointestinal: Normal bowel sounds, No tenderness Musculoskeletal: No tenderness Integumentary: No rashes Neurological: Normal speech, Normal tone, Normal affect Lymphatics: No axilla or inguinal lymphadenopathy Laboratory Data at Discharge: WBC 10.6 K/uL (4.3-10.9) 06/22/19 08:02 Hgb 11.8 g/dL (12.0-15.0) L 06/22/19 08:02 Hct 36.6 % (36.0-45.0) 06/22/19 08:02 Plt Count 214 K/uL (152-406) D 06/22/19 08:02 PT 14.4 SECONDS (9.5-12.5) H 06/19/19 01:43 INR 1.23 06/19/19 01:43 APTT 27.4 SECONDS (24.3-36.9) 06/18/19 05:00 Sodium 142 mmol/L (136-145) 06/22/19 08:02 Potassium 3.2 mmol/L (3.5-5.1) L 06/22/19 08:02 BUN 12 mg/dL (7-18) 06/22/19 08:02 Creatinine 0.66 mg/dL (0.55-1.3) 06/22/19 08:02 Glucose 88 mg/dL (74-106) 06/22/19 08:02 Magnesium 2.0 mg/dL (1.8-2.4) 06/21/19 06:12 Total Bilirubin 0.5 mg/dL (0.2-1.0) 06/22/19 08:02 AST 23 U/L (15-37) 06/22/19 08:02 ALT 25 U/L (12-78) 06/22/19 08:02 Alkaline Phosphatase 63 U/L (45-117) 06/22/19 08:02 Troponin I < 0.02 ng/mL (0.0-0.045) 06/19/19 04:33 Triglycerides 119 mg/dL (<150) 06/19/19 04:33 Cholesterol 181 mg/dL (<200) 06/19/19 04:33 HDL Cholesterol 42 mg/dL (40-60) 06/19/19 04:33 Cholesterol/HDL Ratio 4.31 06/19/19 04:33 Home Medications: Raltegravir Potassium [Isentress] 400 mg PO BID 02/28/12 Lorazepam [Ativan] 2 mg PO BID* PRN 04/02/12 Sertraline [Zoloft*] 200 mg PO DAILY 09/15/12 Emtricitabine/Tenofov Alafenam [Descovy 200-25 mg Tablet] 1 tab PO BEDTIME 10/05 Albuterol Neb [Proventil 0.083% Neb Soln] 2.5 mg IH BID 03/12/18 Budesonide/Formoterol Fumarate [Symbicort 160-4.5 Mcg Inhaler] 2 puff IH BID #1 hfa.aer.ad 03/13/18 Ferrous Sulfate 325 mg PO BID #60 tablet 06/18/18 Buspirone HCl [Buspar] 10 mg PO BID 06/18/19 Dicyclomine HCl 1 tab PO DAILY PRN 06/18/19 Esomeprazole Mag Trihydrate [Nexium] 40 mg PO BID 06/18/19 Metoprolol Tartrate 100 mg PO BID 06/18/19 Tiotropium [Spiriva Handihaler*] 18 mcg IH DAILY PRN 06/18/19 Triamterene/Hydrochlorothiazid [Triamterene-Hctz 37.5-25 mg Cp] 1 each PO DAILY 06/18/19 Varenicline Tartrate [Chantix] 1 mg PO BID 06/18/19 Amoxicillin/Potassium Clav [Augmentin 875-125 Tablet] 1 each PO BID #28 tablet 06/22/19 Hydralazine HCl 50 mg PO BID #60 tablet 06/22/19 Lisinopril [Zestril] 40 mg PO DAILY #60 tablet 06/22/19 Metformin HCl 500 mg PO DAILY #30 tablet 06/22/19 NIFEdipine [Nifedipine ER] 60 mg PO BID #60 tab.er.24 06/22/19 Promethazine/Dextrometh Syr [Phenergan Dm Oral Syrup*] 5 ml PO Q6H PRN #200 ml 06/22/19 predniSONE [Prednisone*] 20 mg PO DAILY #10 tab 06/22/19 New Medications: Amoxicillin/Potassium Clav [Augmentin 875-125 Tablet] 1 each PO BID #28 tablet Hydralazine HCl 50 mg PO BID #60 tablet Lisinopril [Zestril] 40 mg PO DAILY #60 tablet Metformin HCl 500 mg PO DAILY #30 tablet NIFEdipine [Nifedipine ER] 60 mg PO BID #60 tab.er.24 predniSONE [Prednisone*] 20 mg PO DAILY #10 tab Promethazine/Dextrometh Syr [Phenergan Dm Oral Syrup*] 5 ml PO Q6H PRN #200 ml PRN Reason: Cough Patient Discharge Instructions: Follow up with pcp for result of flow cytometry due to abnormal blood count. New onset diabetes, diet and lifestyle modifications. Follow up for lung mass. Repeat CT chest in 2 weeks. Diet: AHA Activity: Fall precautions Followup: Unknown,U [Primary Care Provider] - 1 Week (Patient with promuelocytes on CBC; sample sent for flow cytometry. Needs follow up.)
[2019-06-22] MEDS ORDERED: MAXZIDE (HCTZ 25/TRIAMTERENE 37.5MG) TAB PO SCH (11:39)
[2019-06-22 12:12] VITALS: BP 169/100; TEMP 97.2
== END 2019-06-22 12:41 | disposition home or self-care (01) | DRG 190 ==
LOC: ER 04:56 → ERHOLD 06:29 → 2ND 08:58
PROVIDERS: ADMIT Internal Medicine; ATTEND Hospitalist
DX: J44.1 Chronic obstructive pulmonary disease with (acute) exacerbation (principal); J13 Pneumonia due to Streptococcus pneumoniae; N17.9 Acute kidney failure, unspecified; R04.2 Hemoptysis; R78.81 Bacteremia; J44.0 Chronic obstructive pulmonary disease with (acute) lower respiratory infection; Z21 Asymptomatic human immunodeficiency virus [HIV] infection status; F31.9 Bipolar disorder, unspecified; R91.8 Other nonspecific abnormal finding of lung field; N18.3 Chronic kidney disease, stage 3 (moderate); I12.9 Hypertensive chronic kidney disease with stage 1 through stage 4 chronic kidney disease, or unspecified chronic kidney disease; K21.9 Gastro-esophageal reflux disease without esophagitis; F41.8 Other specified anxiety disorders; E87.6 Hypokalemia; R09.02 Hypoxemia
CPT/HCPCS: 36415; 71045; 71046; 71250; 76770; 80048; 80053; 80061; 80076; 80202; 81003; 81015; 82553; 83036; 83605; 83735; 83880; 84132; 84145; 84484; 85025; 85610; 85730; 87040; 87070; 87077; 87186; 87205; 87804; 93005; 93306; 94640; 94760; 96361; 96365; 96374; 96375; 99285; J0360; J0456; J0692; J0696; J1170; J1650; J2270; J2405; J2930; J3490; J7030; J7040; J7512; J7605

== ENCOUNTER 2019-07-02 13:45 | Observation (INO) | payer OTHER ==
--- OUTSIDE RECORDS SUMMARY | 2019-07-02 13:48 | XMS REPORT ---
:1955 [facility] Address [address] [place] [address] Dr. Alexis [address] [place] [id number] Care Team Providers Name Role Phone SYL [...] detected (qualifier value) Not Detected URINALYSIS WITH [id number] 10:57:00 Test Item Value Reference Range Comments Color (test code=UCOLR) Dk. Yellow Clarity (test code=UCLAR) Hazy Glucose (test code=UGLUC) NEGATIVE NEGATIVE Bilirubin (test code=UBILI) NEGATIVE NEGATIVE Ketones (test code=UKET) NEGATIVE NEGATIVE Specific [place] (test code=USPGR) 1.025 1.005-1.030 Blood (test code=UBLD) [...]
--- NOTE | 2019-07-02 15:45 | RAD REPORT ---
EXAM DESCRIPTION: RAD - Chest Single View - 07/02/2019 3:12 pm CLINICAL HISTORY: Cough;Congestion;Chest pain;Dyspnea COMPARISON: Chest Single View dated 06/25/2019; Chest Pa And Lat (2 Views) dated 06/19/2019 TECHNIQUE: AP portable chest image was obtained 07/02/2019 3:12 pm . FINDINGS: Lung volumes are low. This limits retrocardiac and bilateral posterior gutter assessment. Mid and upper lung patel are clear of a mass or consolidation. Mid left lung field is better aerated than the June 25 study. No significant failure or volume overload findings. Heart size normal r abbey for portable imaging. No pneumothorax or large pleural effusion. No acute bony abnormality seen. No acute aortic findings suspected. IMPRESSION: Limited portable study without significant failure or volume overload finding. Left midlung field aeration is substantially improved compared June 24. Retrocardiac left base and bilateral posterior gutter assessment limited.
[2019-07-02 16:16] LABS: Urine Blood NEGATIVE (NEG); Urine Glucose NEGATIVE (NEG); Urine Protein TRACE (NEG); Urine Specific Gravity 1.025 (1.005-1.030); Urine pH 5.5 (5.0-7.0)
[2019-07-02] MEDS ORDERED: NA CHLORIDE 0.9% 1,000 ML ONE (17:02)
[2019-07-02 17:11] LABS: Absolute Lymphocytes (CBC) 1.6 K/uL (0.7-4.9); Basophils % 0.9 % (0-1.3); Hematocrit 39.1 % (36.0-45.0); Lymphocytes % 15.7 % (15.3-44.8); MPV 7.2 fL (7.6-11.3); RBC Red Blood Cell Count 4.64 M/uL (3.86-4.86)
[2019-07-02 17:12] LABS: Protime INR 1.03
[2019-07-02] MEDS ORDERED: ONDANSETRON 4 MG/2 ML VIAL ONE (17:22)
[2019-07-02] MEDS ORDERED: MORPHINE 4 MG/ML SYR ONE (17:22)
[2019-07-02 17:24] LABS: ALT/SGPT 38 U/L (12-78); AST/SGOT 35 U/L (15-37); Albumin 3.2 g/dL (3.4-5.0); Alkaline Phosphatase 69 U/L (45-117); BUN Blood Urea Nitrogen 25 mg/dL (7-18); Bicarbonate 30 mmol/L (21-32); Bilirubin Direct 0.1 mg/dL (0-0.2); Bilirubin Total 0.3 mg/dL (0.2-1.0); Glucose Level 79 mg/dL (74-106); Lipase 256 U/L (73-393); Magnesium 2.3 mg/dL (1.8-2.4); NT PRO-BNP 459 pg/mL (<125); Potassium 3.9 mmol/L (3.5-5.1); Protein, Total 7.1 g/dL (6.4-8.2); Sodium Level 141 mmol/L (136-145); Troponin (Emerg Dept Use Only) < 0.02 ng/mL (0.0-0.045)
--- NOTE | 2019-07-02 17:42 | EKG ---
Test Date: 2019-07-02 Test Time: 15:17:57 Nitr[place] Lab Technician: ANNELISE MEASUREMENT RESULTS: Intervals: Rate: 62 MI: 162 QRSD: 76 QT: 464 QTc: 470 [place]: P: 41 MI: 162 QRS: -3 T: 23 INTERPRETIVE STATEMENTS: Sinus rhythm with premature supraventricular complexes Voltage criteria for left ventricular hypertrophy Abnormal ECG Compared to ECG 06/25/2019 06:50:08 Atrial premature complex(es) now present ST (T wave) deviation no longer present Prolonged QT interval no longer present Electronically Signed On 07-02-19 17:42:06 SECRETARY BOARD [employer] COMMISSIONERS by Rich Grissom
[2019-07-02] MEDS ORDERED: FAMOTIDINE 20 MG/2 ML VIAL IV ONE (18:11)
[2019-07-02] MEDS ORDERED: AMOX/K CLAV 875 MG TAB ONE (18:11)
[2019-07-02] MEDS ORDERED: ENOXAPARIN 100 MG/ML SYR SQ ONE (18:11)
--- NOTE | 2019-07-02 19:45 | ER ---
Nurse's Notes [facility] Name: Marjan Fleming Age: 64 yrs Sex: Female : 1955 Arrival Date: 07/02/2019 Time: 13:47 Bed 13 Private MD: Diagnosis: Dyspnea;Pneumonia due to other specified bacteria-left base;Pleurisy Presentation: 07/02 14:14 Presenting complaint: Patient states: Last week, I was admitted for bilateral ca1 Pneumonia. Today, it hurts to breathe. I have pain on my L shoulder blade up to my L lower rib. Transition of care: patient was not received from another setting of care. Onset of symptoms was July 02, 2019. Risk Assessment: Do you want to hurt yourself or someone else? Patient reports no desire to harm self or others. Initial Sepsis Screen: Does the patient meet any 2 criteria? No. Patient's initial sepsis screen is negative. Does the patient have a suspected source of infection? No. Patient's initial sepsis screen is negative. Care prior to arrival: None. 14:14 Method Of Arrival: Ambulatory ca1 14:14 Acuity: BLAYNE 3 ca1 Triage Assessment: 18:23 General: Appears in no apparent distress. Respiratory: Onset: The symptoms/episode mg2 began/occurred gradually, the patient has mild shortness of breath. Historical: - Allergies: 14:19 Bactrim DS; ca1 14:19 Codeine; ca1 14:19 metoclopramide HCl; ca1 14:19 Stadol; ca1 - Home Meds: 14:19 BuSpar 10 mg BID Oral [Active]; Descovy 200-25 mg Oral tab 1 tab once daily [Active]; ca1 Metformin Oral [Active]; metoprolol tartrate 100 mg Oral tab 1 tab 2 times per day [Active]; sertraline Oral [Active]; lisinopril 40 mg Oral tab 1 tab twice a day [Active]; 14:21 Hydralazine Oral [Active]; Norvasc Oral [Active]; ca1 18:25 Amoxicillin Oral [Active]; raltegravir Oral 1 tab 2 times per day [Active]; mg2 - PMHx: 14:19 Anxiety; Atrial Fib; Bipolar disorder; Chronic pain; COPD; esophageal varices; HIV; ca1 Hypertension; Migraines; Panic Attacks; Hepatitis; - PSHx: 14:19 Cholecystectomy; Appendectomy; ca1 - Immunization history:: Adult Immunizations up to date, Pneumococcal vaccine is up to date, Flu vaccine is up to date. - Coronavirus screen:: The patient has NOT traveled to [place], [place], or [place] in the past 14 days. The patient has NOT had contact with known/suspected case of Coronavirus?. - Social history:: Smoking status: Patient denies any tobacco usage or history of. - Family history:: not pertinent. - Ebola Screening: : Patient negative for fever greater than or equal to 101.5 degrees Fahrenheit, and additional compatible Ebola Virus Disease symptoms Patient denies exposure to infectious person Patient denies travel to an Ebola-affected area in the 21 days before illness onset No symptoms or risks identified at this time. Screenin:22 Abuse screen: Denies threats or abuse. Denies injuries from another. Abuse screen: mg2 Denies threats or abuse. Nutritional screening: No deficits noted. Tuberculosis screening: No symptoms or risk factors identified. Fall Risk IV access (20 points). Assessment: 18:21 General: Appears in no apparent distress. comfortable, Behavior is calm, cooperative. mg2 Pain: Complains of pain in chest. Neuro: Level of Consciousness is awake, alert, obeys commands, Oriented to person, place, time, situation. Cardiovascular: Capillary refill < 3 seconds Patient's skin is warm and dry. Respiratory: Airway is patent Respiratory effort is even, unlabored, Respiratory pattern is regular, symmetrical. Respiratory: Reports shortness of breath Breath sounds are clear. GI: No signs and/or symptoms were reported involving the gastrointestinal system. : No signs and/or symptoms were reported regarding the genitourinary system. EENT: No signs and/or symptoms were reported regarding the EENT system. Derm: Skin is intact, is healthy with good turgor, Skin is pink, warm \T\ dry. normal. Musculoskeletal: Circulation, motion, and sensation intact. Capillary refill < 3 seconds. 19:05 Reassessment: Patient appears in no apparent distress at this time. Patient and/or jb4 family updated on plan of care and expected duration. Pain level reassessed. Patient is alert, oriented x 3, equal unlabored respirations, skin warm/dry/pink. 19:56 Reassessment: PT in CT. jb4 20:52 Reassessment: Patient appears in no apparent distress at this time. Patient and/or jb4 family updated on plan of care and expected duration. Pain level reassessed. Patient is alert, oriented x 3, equal unlabored respirations, skin warm/dry/pink. Vital Signs: 14:19 BP 140 / 89; Pulse 65; Resp 19 S; Temp 98(O); Pulse Ox 96% on R/A; Weight 93.44 kg (R); ca1 Height 5 ft. 4 in. (162.56 cm) (R); 19:00 BP 139 / 77; Pulse 72; Resp 16; Pulse Ox 96% on R/A; jb4 19:30 BP 128 / 72; Pulse 68; Resp 16; Pulse Ox 98% on R/A; jb4 20:45 BP 156 / 87; Pulse 69; Resp 19; Pulse Ox 96% on R/A; jb4 14:19 Body Mass Index 35.36 (93.44 kg, 162.56 cm) ca1 ED Course: 13:47 Patient arrived in ED. rg4 14:17 Triage completed. ca1 14:19 Arm band placed on right wrist. ca1 14:50 Justus Kolb MD is Attending Physician. thomas 15:15 X-ray completed. mh1 15:16 Isaias Whitaker, ASHLEY is Primary Nurse. mg2 15:47 Urine Culture Sent. lt1 15:49 EKG done, by biomedical technician. reviewed by Justus Kolb MD. at1 17:22 Cristina Moody MD is Hospitalizing Provider. thomas 17:26 Keren Zamora MD is Hospitalizing Provider. thomas 17:30 Inserted saline lock: 24 gauge in left hand, using aseptic technique. Blood collected. mg2 18:05 Inserted saline lock: 24 gauge in left forearm, using aseptic technique. Blood mg2 collected. 18:22 Patient has correct armband on for positive identification. grip boss on. Pulse mg2 ox on. NIBP on. Door closed. Warm blanket given. 18:23 No provider procedures requiring assistance completed. mg2 20:54 Patient admitted, IV remains in place. jb4 Administered Medications: 17:03 Drug: NS 0.9% 1000 ml Route: IV; Rate: 125 ml/hr; Site: left hand; mg2 17:25 Drug: morphine 4 mg Route: IVP; Site: left hand; mg2 18:20 Follow up: Response: No adverse reaction mg2 17:25 Drug: Zofran 4 mg Route: IVP; Site: left hand; mg2 18:30 Follow up: Response: No adverse reaction; Marked relief of symptoms mg2 18:20 Drug: Lovenox 1 mg/kg Route: Sub-Q; Site: right upper abdomen; mg2 19:20 Follow up: Response: No adverse reaction mg2 18:20 Drug: Augmentin 875 mg Route: PO; mg2 19:20 Follow up: Response: No adverse reaction mg2 18:20 Drug: Pepcid 20 mg Route: IVP; Site: left hand; mg2 21:14 Follow up: Response: No adverse reaction mg2 Outcome: 17:24 Decision to Hospitalize by Provider. thomas 20:54 Admitted to Med/surg accompanied by ab, via wheelchair, with chart, Report called to kingsley Pichardo 20:54 Condition: stable 20:54 Discharge instructions given to patient, Instructed on the need for admit, Demonstrated understanding of instructions. 20:56 Patient left the ED. elmer Signatures: Justus Kolb MD MD cha Harvey, Martha 1 Danielle Leo, road mender EKG [facility]1 Polina Camarillo 4 Mode Bhatt, RN RN jb4 Isaias Whitaker RN RN mg2 Lucrecia Gallardo, RN RN Viviana Greco 1
--- NOTE | 2019-07-02 19:46 | EDPHYS ---
Physician Documentation [facility] Name: Marjan Fleming Age: 64 yrs Sex: Female : 1955 Arrival Date: 07/02/2019 Time: 13:47 Bed 13 Private MD: ED Physician Justus Kolb HPI: 07/02 15:42 This 64 yrs old Female presents to ER via Ambulatory with complaints of thomas Breathing Difficulty. 15:42 The patient has shortness of breath at rest, with light activity. Onset: The thomas symptoms/episode began/occurred 2 day(s) ago. Duration: The symptoms are continuous, and are steadily getting worse. The patient's shortness of breath is aggravated by coughing, light activity, talking, walking, is alleviated by rest, sitting up, application of supplemental oxygen. Severity of symptoms: At their worst the symptoms were mild in the emergency department the symptoms are unchanged. The patient has experienced similar episodes in the past, a few times. Historical: - Allergies: 14:19 Bactrim DS; ca1 14:19 Codeine; ca1 14:19 metoclopramide HCl; ca1 14:19 Stadol; ca1 - Home Meds: 14:19 BuSpar 10 mg BID Oral [Active]; Descovy 200-25 mg Oral tab 1 tab once daily [Active]; ca1 Metformin Oral [Active]; metoprolol tartrate 100 mg Oral tab 1 tab 2 times per day [Active]; sertraline Oral [Active]; lisinopril 40 mg Oral tab 1 tab twice a day [Active]; 14:21 Hydralazine Oral [Active]; Norvasc Oral [Active]; ca1 18:25 Amoxicillin Oral [Active]; raltegravir Oral 1 tab 2 times per day [Active]; mg2 - PMHx: 14:19 Anxiety; Atrial Fib; Bipolar disorder; Chronic pain; COPD; esophageal varices; HIV; ca1 Hypertension; Migraines; Panic Attacks; Hepatitis; - PSHx: 14:19 Cholecystectomy; Appendectomy; ca1 - Immunization history:: Adult Immunizations up to date, Pneumococcal vaccine is up to date, Flu vaccine is up to date. - Coronavirus screen:: The patient has NOT traveled to [place], [place], or [place] in the past 14 days. The patient has NOT had contact with known/suspected case of Coronavirus?. - Social history:: Smoking status: Patient denies any tobacco usage or history of. - Family history:: not pertinent. - Ebola Screening: : Patient negative for fever greater than or equal to 101.5 degrees Fahrenheit, and additional compatible Ebola Virus Disease symptoms Patient denies exposure to infectious person Patient denies travel to an Ebola-affected area in the 21 days before illness onset No symptoms or risks identified at this time. ROS: 15:42 Constitutional: Negative for fever, chills, and weight loss, Eyes: Negative for injury, thomas pain, redness, and discharge, ENT: Negative for injury, pain, and discharge, Neck: Negative for injury, pain, and swelling, Cardiovascular: Negative for chest pain, palpitations, and edema, Abdomen/GI: Negative for abdominal pain, nausea, vomiting, diarrhea, and constipation, Back: Negative for injury and pain, : Negative for injury, bleeding, discharge, and swelling, MS/Extremity: Negative for injury and deformity, Skin: Negative for injury, rash, and discoloration, Neuro: Negative for headache, weakness, numbness, tingling, and seizure. 15:42 Respiratory: Positive for cough, shortness of breath, at rest. Exam: 15:42 Constitutional: This is a well developed, well nourished patient who is awake, alert, thomas and in no acute distress. Head/Face: Normocephalic, atraumatic. Eyes: Pupils equal round and reactive to light, extra-ocular motions intact. Lids and lashes normal. Conjunctiva and sclera are non-icteric and not injected. Cornea within normal limits. Periorbital areas with no swelling, redness, or edema. ENT: Nares patent. No nasal discharge, no septal abnormalities noted. Tympanic membranes are normal and external auditory canals are clear. Oropharynx with no redness, swelling, or masses, exudates, or evidence of obstruction, uvula midline. Mucous membranes moist. Neck: Trachea midline, no thyromegaly or masses palpated, and no cervical lymphadenopathy. Supple, full range of motion without nuchal rigidity, or vertebral point tenderness. No Meningismus. Chest/axilla: Normal chest wall appearance and motion. Nontender with no deformity. No lesions are appreciated. Cardiovascular: Regular rate and rhythm with a normal S1 and S2. No gallops, murmurs, or rubs. Normal PMI, no JVD. No pulse deficits. Abdomen/GI: Soft, non-tender, with normal bowel sounds. No distension or tympany. No guarding or rebound. No evidence of tenderness throughout. Back: No spinal tenderness. No costovertebral tenderness. Full range of motion. Female : Normal external genitalia. Skin: Warm, dry with normal turgor. Normal color with no rashes, no lesions, and no evidence of cellulitis. MS/ Extremity: Pulses equal, no cyanosis. Neurovascular intact. Full, normal range of motion. Neuro: Awake and alert, GCS 15, oriented to person, place, time, and situation. Cranial nerves II-XII grossly intact. Motor strength 5/5 in all extremities. Sensory grossly intact. Cerebellar exam normal. Normal gait. Psych: Awake, alert, with orientation to person, place and time. Behavior, mood, and affect are within normal limits. 15:42 Respiratory: the patient does not display signs of respiratory distress, Respirations: no acute changes, labored breathing, that is mild, Breath sounds: are clear throughout, rhonchi, that are mild, are scattered, Respiratory rate: 18 Vital Signs: 14:19 BP 140 / 89; Pulse 65; Resp 19 S; Temp 98(O); Pulse Ox 96% on R/A; Weight 93.44 kg (R); ca1 Height 5 ft. 4 in. (162.56 cm) (R); 19:00 BP 139 / 77; Pulse 72; Resp 16; Pulse Ox 96% on R/A; jb4 19:30 BP 128 / 72; Pulse 68; Resp 16; Pulse Ox 98% on R/A; jb4 20:45 BP 156 / 87; Pulse 69; Resp 19; Pulse Ox 96% on R/A; jb4 14:19 Body Mass Index 35.36 (93.44 kg, 162.56 cm) ca1 MDM: 14:51 Patient medically screened. [facility] 15:42 Data reviewed: vital signs, nurses notes, lab test result(s), EKG, radiologic studies, [facility] CT scan, plain films. 07/02 14:53 Order name: Basic Metabolic Panel [facility] 07/02 14:53 Order name: CBC with Diff [facility] 07/02 14:53 Order name: LFT's [facility] 07/02 14:53 Order name: Magnesium [facility] 07/02 14:53 Order name: NT PRO-BNP [facility] 07/02 14:53 Order name: PT-INR [facility] 07/02 14:53 Order name: Troponin (emerg Dept Use Only) [facility] 07/02 14:53 Order name: Lipase [facility] 07/02 14:53 Order name: Blood Culture Adult (2) [facility] 07/02 14:53 Order name: Urine Culture [facility] 07/02 15:54 Order name: Urine Dipstick--Ancillary (enter results) 07/02 16:29 Order name: Urine Dipstick-Ancillary; Complete Time: 17:01 EDUT 07/02 17:09 Order name: D-Dimer [facility] 07/02 18:12 Order name: Add On-Lab 07/02 14:53 Order name: XRAY Chest (1 view) [facility] 07/02 15:54 Order name: RAD; Complete Time: 17:01 EDUT 07/02 17:50 Order name: US Extremity Venous W Compression David [facility] 07/02 19:06 Order name: CBC with Automated Diff [facility] 07/02 19:07 Order name: Protime (+INR) [facility] 07/02 19:08 Order name: Basic Metabolic Panel [facility] 07/02 19:08 Order name: Liver (Hepatic) Function [facility] 07/02 19:08 Order name: Troponin (Emerg Dept Use Only) [facility] 07/02 19:08 Order name: NT PRO-BNP [facility] 07/02 19:08 Order name: Magnesium [facility] 07/02 19:08 Order name: Lipase [facility] 07/02 19:11 Order name: D-Dimer [facility] 07/02 14:53 Order name: EKG; Complete Time: 15:05 [facility] 07/02 14:53 Order name: Cardiac monitoring; Complete Time: 15:34 [facility] 07/02 14:53 Order name: EKG - Nurse/Tech; Complete Time: 15:34 [facility] 07/02 14:53 Order name: IV Saline Lock; Complete Time: 17:03 [facility] 07/02 14:53 Order name: Labs collected and sent; Complete Time: 17:03 [facility] 07/02 14:53 Order name: O2 Per Protocol; Complete Time: 15:34 [facility] 07/02 14:53 Order name: O2 Sat Monitoring; Complete Time: 15:34 [facility] 07/02 14:53 Order name: Urine Dipstick-Ancillary (obtain specimen); Complete Time: 15:47 [facility] Administered Medications: 17:03 Drug: NS 0.9% 1000 ml Route: IV; Rate: 125 ml/hr; Site: left hand; mg2 17:25 Drug: morphine 4 mg Route: IVP; Site: left hand; mg2 18:20 Follow up: Response: No adverse reaction mg2 17:25 Drug: Zofran 4 mg Route: IVP; Site: left hand; mg2 18:30 Follow up: Response: No adverse reaction; Marked relief of symptoms mg2 18:20 Drug: Lovenox 1 mg/kg Route: Sub-Q; Site: right upper abdomen; mg2 19:20 Follow up: Response: No adverse reaction mg2 18:20 Drug: Augmentin 875 mg Route: PO; mg2 19:20 Follow up: Response: No adverse reaction mg2 18:20 Drug: Pepcid 20 mg Route: IVP; Site: left hand; mg2 21:14 Follow up: Response: No adverse reaction mg2 Disposition: 07/02/19 17:24 Hospitalization ordered by Keren Zamora for Observation. Preliminary diagnosis are Dyspnea, Pneumonia due to other specified bacteria - left base, Pleurisy. - Bed requested for Telemetry/MedSurg (observation). - Status is Observation. jb4 - Condition is Fair. - Problem is new. - Symptoms have improved. Signatures: Dispatcher [employer] EDMS Justus Kolb MD MD cha Bryson, James, RN RN jb4 Shimon Ruiz mw2 Isaias Whitaker RN RN mg2 Lucrecia Gallardo RN RN ca1 Corrections: (The following items were deleted from the chart) 17:26 17:24 Hospitalization Ordered by Cristina Moody MD for Observation. Preliminary diagnosis is thomas Dyspnea; Pneumonia due to other specified bacteria - left base; Pleurisy. Bed requested for Telemetry/MedSurg (observation). Status is Observation. Condition is Fair. Problem is new. Symptoms have improved. thomas 20:14 17:26 07/02/2019 17:24 Hospitalization Ordered by Keren Zamora MD for Observation. mw2 Preliminary diagnosis is Dyspnea; Pneumonia due to other specified bacteria - left base; Pleurisy. Bed requested for Telemetry/MedSurg (observation). Status is Observation. Condition is Fair. Problem is new. Symptoms have improved. thomas 20:56 20:14 07/02/2019 17:24 Hospitalization Ordered by Keren Zamora MD for Observation. jb4 Preliminary diagnosis is Dyspnea; Pneumonia due to other specified bacteria - left base; Pleurisy. Bed requested for Telemetry/MedSurg (observation). Status is Observation. Condition is Fair. Problem is new. Symptoms have improved. mw2
[2019-07-02] MEDS ORDERED: ACETAMINOPHEN 500 MG TAB PO PRN (20:44)
[2019-07-02] MEDS ORDERED: IBUPROFEN 400 MG TAB PO PRN (20:44)
[2019-07-02] MEDS ORDERED: ALBUTEROL 2.5 MG/3 ML NEB SOL NEB PRN (20:44)
[2019-07-02] MEDS ORDERED: ONDANSETRON 4 MG/2 ML VIAL IV PRN (20:44)
[2019-07-02] MEDS ORDERED: NA CHLORIDE 0.9% 1,000 ML IV SCH (20:44)
[2019-07-02] MEDS: AMOX/K CLAV 875 MG TAB PO SCH (21:00)
--- NOTE | 2019-07-02 21:14 | RAD REPORT ---
EXAM DESCRIPTION: US - Extrem Venous W Compress David - 07/02/2019 8:01 pm CLINICAL HISTORY: Bilateral leg pain and swelling COMPARISON: None. TECHNIQUE: Real-time sonographic evaluation of the bilateral lower extremity common femoral, superfi cial femoral, popliteal and posterior tibial veins was performed. FINDINGS: Normal compressibility, flow augmentation, phasic flow and spontaneous flow are identified in the left and right lower extremity common femoral, superficial femoral, popliteal and posterior t ibial veins. No intraluminal filling defects seen. IMPRESSION: No DVT in either lower extremity.
[2019-07-02 21:34] VITALS: BMI 34.5
--- NOTE | 2019-07-03 03:23 | HP ---
Date of Admission: 07/02/2019 Chief Complaint: Pleuritic chest pain. History Of Present Illness: Patient is a 64-year-old female, who was recently discharged on 06/22/19 20 with bacteremia and pneumonia, comes in with pleuritic chest pain. Patient has been having signif icant amount of cough. Patient's symptoms are constant, moderate, progressively worsening. No recur rent fevers or chills. Patient was feeling short of breath and placed on supplemental oxygen. Brayden christina's lab work shows normal white blood cell count. Currently, D-dimer is pending. Her chest x-ray s howed significant improvement in the left mid lung field converting every second. Patient was given full-dose Lovenox and then referred for admission. Past Medical History: HIV, bipolar disorder, hypertension, COPD, anemia of chronic disease, nicotine dependence, alcohol abuse, constriction of the urethra. Surgical History: Appendectomy, cholecystectomy, left shoulder rotator cuff, right foot repair, righ t shoulder replacement, left shoulder rotator cuff repair. Allergies: FENTANYL, STADOL, REGLAN, AND BACTRIM. Medications: List reviewed. Social History: Patient is an ex-smoker and drinks occasionally. Family History: Father had kidney disease. Mother had epilepsy and chronic pain. Review of Systems: Ten-point system reviewed, negative except as per HPI. Physical Examination: Vital Signs: Blood pressure 156/84, pulse 77, respirations 18, temperature 97.9, O2 of 97% on room a ir. BMI 35. General: Awake alert oriented x3, in some mild distress due to pain. Appears older than stated age female. HEENT: Normocephalic, atraumatic. PERRLA. EOMI. Moist mucous membranes. Oropharynx is clear. Co njunctivae anicteric. Neck: Supple. No JVD. Trachea midline. CV: S1, S2. Regular rate and rhythm. Peripheral pulses present. Respiratory: Moving air well bilaterally. No wheezing or stridor. No use of accessory muscles. Gastrointestinal: Abdomen is soft, nontender, nondistended. Positive bowel sounds. No guarding or rigidity. Extremities: No clubbing, cyanosis, or edema. No calf tenderness. Neurological: Cranial nerves 2 through 12 intact grossly. No focal neurological deficits. Speech i s normal. Musculoskeletal: Patient has tenderness to palpation on the left lateral chest wall on the ribs and underneath the breast. Psych: Mood is okay. Affect is full. Insight and judgment are fair. Laboratory Data: UA is negative. Sodium 141, potassium 3.9, chloride 106, CO2 of 30, BUN 25, creati nine 0.79, glucose 79, calcium 8.9, magnesium 2.3. Troponin less than 0.02. INR 1.03. WBC 10.2, H and H 12.7 and 39.1, platelets 329, neutrophils 74.9%. Imaging Data: Chest x-ray shows left mid lung field aeration, substantially improved from June 24 . EKG shows sinus rhythm with PVCs, rate of 62, LVH. Assessment: A 64-year-old female with. 1.Pleuritic chest pain, likely related to her recovering pneumonia and musculoskeletal from signific ant amount of cough. We will place lidocaine patch, possibility of PE. D-dimer is pending. We will obtain V/Q scan. 2.Human immunodeficiency virus. Patient to continue her home medications for HIV. 3.Bipolar disorder, stable. Resume home medications. 4.Hyperlipidemia. Continue statin. 5.Essential hypertension, stable. Resume home medications. 6.Chronic obstructive pulmonary disease, chronic bronchitis. We will continue with albuterol p.r.n. 7.Nicotine dependence with cigarette smoking, counseled. 8.History of alcohol abuse, counseled. 9.Anemia of chronic disease. Continue to monitor H and H. 10.Obesity. 11.Deep vein thrombosis prophylaxis, Lovenox. Plan: Admit patient to Med-Surg, place as observation and likely be discharged in the a.m. if PE zach dy is negative. SA/MODL Voice ID: [id number]
[2019-07-03 06:04] LABS: Absolute Lymphocytes (CBC) 1.7 K/uL (0.7-4.9); Basophils % 0.4 % (0-1.3); Hematocrit 37.4 % (36.0-45.0); Lymphocytes % 23.1 % (15.3-44.8); MPV 7.3 fL (7.6-11.3); RBC Red Blood Cell Count 4.41 M/uL (3.86-4.86)
[2019-07-03 06:23] LABS: Albumin 2.8 g/dL (3.4-5.0); Bilirubin Total 0.3 mg/dL (0.2-1.0); Magnesium 2.1 mg/dL (1.8-2.4); Potassium 3.2 mmol/L (3.5-5.1); Protein, Total 6.5 g/dL (6.4-8.2)
[2019-07-03] MEDS ORDERED: POTASSIUM 25 MEQ EFFERV TAB PO ONE (06:37)
--- NOTE | 2019-07-03 06:48 | RAD REPORT ---
EXAM DESCRIPTION: RAD - Chest Pa And Lat (2 Views) - 07/03/2019 5:17 am CLINICAL HISTORY: FU COPD/SOB Chest pain. COMPARISON: Chest Single View dated 07/02/2019; Chest Single View dated 06/25/2019; Chest Pa And Lat (2 Views) dated 06/19/2019; Chest Single View dated 06/18/2019 FINDINGS: The lungs are emphysematous with a small pleural effusion. Minimal atelectasis or infiltra te suspected left lung base. The heart is mildly enlarged in size. Bilateral shoulder arthroplasty no arpit.
[2019-07-03] MEDS ORDERED: TIOTROPIUM 5 SPRAYS/INHALER IH PRN (08:08)
[2019-07-03] MEDS: AMOX/K CLAV 875 MG TAB PO SCH (08:17)
[2019-07-03 08:21] VITALS: TEMP 97.1
[2019-07-03] MEDS ORDERED: FERROUS SULFATE 325 MG TAB PO SCH (09:00)
[2019-07-03] MEDS ORDERED: RALTEGRAVIR POTASSIUM 400 MG TABLET PO SCH (09:00)
[2019-07-03] MEDS ORDERED: BUSPIRONE HCL 5 MG TABLET PO SCH (09:00)
[2019-07-03] MEDS ORDERED: METOPROLOL TAR 50 MG TAB PO SCH (09:00)
[2019-07-03] MEDS ORDERED: LIDOCAINE 4% PATCH TOP SCH (09:00)
[2019-07-03] MEDS ORDERED: PANTOPRAZOLE 40MG TABLET PO SCH (09:00)
[2019-07-03] MEDS ORDERED: predniSONE 20 MG TAB PO SCH (09:00)
[2019-07-03] MEDS ORDERED: SERTRALINE HCL 100 MG TAB PO SCH (09:00)
[2019-07-03] MEDS ORDERED: HOME MED 1 EA UNK (Budesonide/Formoterol Fumarate [Symbicort 160-4.5 Mcg Inhaler] 2 PUFF) IH SCH (09:00)
[2019-07-03] MEDS ORDERED: HYDRALAZINE HCL 25 MG TABLET PO SCH (09:00)
[2019-07-03] MEDS ORDERED: POTASSIUM CL SA 10 MEQ TAB PO ONE (09:00)
[2019-07-03] MEDS ORDERED: lisinopriL 20 MG TAB PO SCH (09:00)
[2019-07-03] MEDS ORDERED: ENOXAPARIN 40 MG/0.4 ML SQ SCH (09:00)
--- NOTE | 2019-07-03 11:47 | RAD REPORT ---
EXAM DESCRIPTION: CT - Chest For Pe Angio - 07/03/2019 11:15 am CLINICAL HISTORY: Chest pain. evaluate for Pulmonary embolus COMPARISON: Thorax Wo Con dated 06/18/2019Thorax Wo Con dated 06/18/2019; Extrem Venous W Compress David dated 07/02/2019 TECHNIQUE: CT angiogram of the pulmonary arteries was performed with MIP. All CT scans are performed using dose optimization technique as appropriate and may include automated exposure control or mA/KV adjustment according to patient size. FINDINGS: No evidence of pulmonary thromboembolism. Main pulmonary artery appears enlarged 4 cm sugg esting pulmonary arterial hypertension. No acute aortic finding demonstrated. Emphysematous changes are present with airspace opacity in the left lung base suggesting infiltrate/p neumonia. Small left pleural effusion is noted. Moderate hiatal hernia is seen. No fracture is evident. IMPRESSION: No evidence of pulmonary thromboembolism. Pulmonary arterial hypertension is suspected. Left lower lobe lung infiltrate with small left pleural effusion probably represents mild residual pn eumonia.
[2019-07-03 12:09] VITALS: BP 145/80
--- NOTE | 2019-07-03 12:27 | P.DS ---
Admission Date: 07/02/19 Discharge Date: 07/03/19 Primary Care Provider: Dr. Rahman; Pulmonary-Dr. Sosa Disposition: ROUTINE DISCHARGE Discharge Condition: GOOD Reason for Admission: chest pain Consultations: none Procedures: CT Chest: FINDINGS: No evidence of pulmonary thromboembolism. Main pulmonary artery appears enlarged 4 cm suggesting pulmonary arterial hypertension. No acute aortic finding demonstrated. Emphysematous changes are present with airspace opacity in the left lung base suggesting infiltrate/pneumonia. Small left pleural effusion is noted. Moderate hiatal hernia is seen. No fracture is evident. IMPRESSION: No evidence of pulmonary thromboembolism. Pulmonary arterial hypertension is suspected. Left lower lobe lung infiltrate with small left pleural effusion probably represents mild residual pneumonia. Venous Doppler: FINDINGS: Normal compressibility, flow augmentation, phasic flow and spontaneous flow are identified in the left and right lower extremity common femoral, superficial femoral, popliteal and posterior tibial veins. No intraluminal filling defects seen. IMPRESSION: No DVT in either lower extremity. Chest x-ray: COMPARISON: Chest Single View dated 06/25/2019; Chest Pa And Lat (2 Views) dated 06/19/2019 TECHNIQUE: AP portable chest image was obtained 07/02/2019 3:12 pm . FINDINGS: Lung volumes are low. This limits retrocardiac and bilateral posterior gutter assessment. Mid and upper lung patel are clear of a mass or consolidation. Mid left lung field is better aerated than the June 25 study. No significant failure or volume overload findings. Heart size normal range for portable imaging. No pneumothorax or large pleural effusion. No acute bony abnormality seen. No acute aortic findings suspected. IMPRESSION: Limited portable study without significant failure or volume overload finding. Left midlung field aeration is substantially improved compared June 24. Retrocardiac left base and bilateral posterior gutter assessment limited. Medical Problem list: Pleuritic chest pain with recovering left lower lobe pneumonia, likely secondary to COPD exacerbation HIV on medications Bipolar disorder Hyperlipidemia Hypertension Tobacco abuse History of alcohol abuse Anemia of chronic disease Diabetes mellitus type 2 non-insulin dependent Chronic pain Brief History of Present Illness: 64-year-old female with multiple medical problems presented with pleuritic chest pain. This was mainly to the left side. Patient was recently discharged on 06/22/2023 bacteremia and pneumonia. Lab work unremarkable. Patient was admitted for further evaluation. Hospital Course: Patient presented with pleuritic chest pain. Workup unremarkable. Chest x-ray shows improving left lower lobe pneumonia. CT scan showed no pulmonary embolism. Venous Doppler negative. Room-air saturations within normal range. Patient admits not taking her COPD medication. Some wheezing noted. Patient likely with underlying COPD exacerbation. At discharge patient will continue with prednisone 20 mg 1 pill twice daily for 5 days then 20 mg 1 pill daily for 5 days. Patient will continue with her home medication of Symbicort 2 puffs twice daily, Spiriva 1 puff daily, and Pro air 2 puffs 3 times a day as needed for shortness of breath. COPD medication and compliance addressed in detail. Recommend follow up with pulmonology to further monitor. Patient is to continue her antibiotic medication-Augmentin. Patient still has 3 more days. Recommend to recheck chest x-ray in 2-4 weeks to monitor resolution. Patient with HIV. At discharge she will continue with her medications. Recommend follow up with her HIV specialist. Patient with bipolar disorder. Patient will continue with her home medications. Patient with hyperlipidemia and hypertension. At discharge she will continue with her medications. Patient with tobacco abuse. Tobacco cessation addressed in detail. This can be further monitored as an outpatient. Patient with diabetes mellitus type 2. At discharge she will continue with her medication metformin. Recommend follow up with a PCP to further monitor and address. Patient with chronic pain. Patient will be provided lidocaine patch to be used daily as needed. Patient may benefit with pain management to further address her condition. Recommend no narcotics at this time. Vital Signs/Physical Exam: Temp Pulse Resp BP Pulse Ox 97.1 F 63 18 145/80 H 98 07/03/19 12:00 07/03/19 12:00 07/03/19 12:00 07/03/19 12:07/03/19 12:00 General: Alert, In no apparent distress, Oriented x3, Cooperative HEENT: Atraumatic Neck: Supple Respiratory: Clear to auscultation bilaterally, Normal air movement Cardiovascular: Normal pulses, Regular rate/rhythm Gastrointestinal: Normal bowel sounds, Soft and benign, Non-distended Musculoskeletal: No tenderness, No warmth Integumentary: No tenderness/swelling, No erythema, No warmth, No cyanosis Neurological: Normal speech, Normal strength at 5/5 x4 extr, Normal tone, Normal affect Laboratory Data at Discharge: WBC 7.4 K/uL (4.3-10.9) D 07/03/19 05:24 Hgb 12.1 g/dL (12.0-15.0) 07/03/19 05:24 Hct 37.4 % (36.0-45.0) 07/03/19 05:24 Plt Count 281 K/uL (152-406) 07/03/19 05:24 PT 12.1 SECONDS (9.5-12.5) 07/02/19 16:55 INR 1.03 07/02/19 16:55 Sodium 141 mmol/L (136-145) 07/03/19 05:24 Potassium 3.2 mmol/L (3.5-5.1) L 07/03/19 05:24 BUN 27 mg/dL (7-18) H 07/03/19 05:24 Creatinine 0.87 mg/dL (0.55-1.3) 07/03/19 05:24 Glucose 139 mg/dL (74-106) H 07/03/19 05:24 Magnesium 2.1 mg/dL (1.8-2.4) 07/03/19 05:24 Total Bilirubin 0.3 mg/dL (0.2-1.0) 07/03/19 05:24 AST 27 U/L (15-37) 07/03/19 05:24 ALT 33 U/L (12-78) 07/03/19 05:24 Alkaline Phosphatase 62 U/L (45-117) 07/03/19 05:24 Lipase 256 U/L (73-393) 07/02/19 16:55 Home Medications: Raltegravir Potassium [Isentress] 400 mg PO BID 02/28/12 Lorazepam [Ativan] 2 mg PO BID* PRN 04/02/12 Sertraline [Zoloft*] 200 mg PO DAILY 09/15/12 Emtricitabine/Tenofov Alafenam [Descovy 200-25 mg Tablet] 1 tab PO BEDTIME 10/05 Ferrous Sulfate 325 mg PO BID #60 tablet 06/18/18 Buspirone HCl [Buspar] 10 mg PO BID 06/18/19 Dicyclomine HCl 1 tab PO DAILY PRN 06/18/19 Esomeprazole Mag Trihydrate [Nexium] 40 mg PO BID 06/18/19 Metoprolol Tartrate 100 mg PO BID 06/18/19 Triamterene/Hydrochlorothiazid [Triamterene-Hctz 37.5-25 mg Cp] 1 each PO DAILY 06/18/19 Varenicline Tartrate [Chantix] 1 mg PO BID 06/18/19 Amoxicillin/Potassium Clav [Augmentin 875-125 Tablet] 1 each PO BID #28 tablet 06/22/19 Hydralazine HCl 50 mg PO BID #60 tablet 06/22/19 Lisinopril [Zestril] 40 mg PO DAILY #60 tablet 06/22/19 Metformin HCl 500 mg PO DAILY #30 tablet 06/22/19 NIFEdipine [Nifedipine ER] 60 mg PO BID #60 tab.er.24 06/22/19 Promethazine/Dextrometh Syr [Phenergan Dm Oral Syrup*] 5 ml PO Q6H PRN #200 ml 06/22/19 Albuterol Neb [Proventil 0.083% Neb Soln] 3 ml IH BID PRN #90 amp 07/03/19 Amox/Clavulanate [Augmentin 875-125 Tab*] 875 mg PO BID #10 tab 07/03/19 Budesonide/Formoterol Fumarate [Symbicort 160-4.5 Mcg Inhaler] 2 puff IH BID #1 hfa.aer.ad 07/03/19 Lidocaine 4% Patch [Lidoderm 5% Patch*] 1 patch TOP DAILY #15 patch 07/03/19 Tiotropium [Spiriva Handihaler*] 18 mcg IH DAILY PRN #1 inh 07/03/19 predniSONE [Prednisone*] 20 mg PO SEECOM #15 tab 07/03/19 New Medications: Albuterol Neb [Proventil 0.083% Neb Soln] 3 ml IH BID PRN #90 amp PRN Reason: Shortness Of Breath Amox/Clavulanate [Augmentin 875-125 Tab*] 875 mg PO BID #10 tab Budesonide/Formoterol Fumarate [Symbicort 160-4.5 Mcg Inhaler] 2 puff IH BID #1 hfa.aer.ad Lidocaine 4% Patch [Lidoderm 5% Patch*] 1 patch TOP DAILY #15 patch predniSONE [Prednisone*] 20 mg PO SEECOM #15 tab Tiotropium [Spiriva Handihaler*] 18 mcg IH DAILY PRN #1 inh PRN Reason: Shortness Of Breath Patient Discharge Instructions: 1. Follow up in 1 week to follow up this hospitalization. 2. Patient presented with pleuritic chest pain. Workup unremarkable. Chest x-ray shows improving left lower lobe pneumonia. CT scan showed no pulmonary embolism. Venous Doppler negative. Room-air saturations within normal range. Patient admits not taking her COPD medication. Some wheezing noted. Patient likely with underlying COPD exacerbation. At discharge patient will continue with prednisone 20 mg 1 pill twice daily for 5 days then 20 mg 1 pill daily for 5 days. Patient will continue with her home medication of Symbicort 2 puffs twice daily, Spiriva 1 puff daily, and Pro air 2 puffs 3 times a day as needed for shortness of breath. COPD medication and compliance addressed in detail. Recommend follow up with pulmonology to further monitor. Patient is to continue her antibiotic medication-Augmentin. Patient still has 3 more days. Recommend to recheck chest x-ray in 2-4 weeks to monitor resolution. 3. Patient with HIV. At discharge she will continue with her medications. Recommend follow up with her HIV specialist. 4. Patient with bipolar disorder. Patient will continue with her home medications. 5. Patient with hyperlipidemia and hypertension. At discharge she will continue with her medications. 6. Patient with tobacco abuse. Tobacco cessation addressed in detail. This can be further monitored as an outpatient. 7. Patient with diabetes mellitus type 2. At discharge she will continue with her medication metformin. Recommend follow up with a PCP to further monitor and address. 8. Patient with chronic pain. Patient will be provided lidocaine patch to be used daily as needed. Patient may benefit with pain management to further address her condition. Recommend no narcotics at this time. Diet: AHA Time spent managing pt's care (in minutes): 55
[2019-07-03 14:37] VITALS: O2SAT 98
[2019-07-03] MEDS ORDERED: TENOFOV ALAFENAM PO SCH (21:00)
[2019-07-03] MEDS ORDERED: EMTRICITABINE PO SCH (21:00)
--- NOTE | 2019-07-04 08:12 | P.HP ---
Certification for Inpatient Patient admitted to: Observation With expected LOS: <2 Midnights Patient will require the following post-hospital care: None Practitioner: I am a practitioner with admitting privileges, knowledge of patient current condition, hospital course, and medical plan of care. Services: Services provided to patient in accordance with Admission requirements found in Title 42 Section 412.3 of the Code of Federal Regulations Patient History Date of Service: 07/02/19 Reason for admission: chest pain History of Present Illness: Patient is a 64-year-old female who came to the hospital with chest discomfort. Patient also has some shortness of breath. She had been worked up in the emergency room as she had a prior pneumonia. Her renal function was elevated. They were not able to do a CT PE protocol. There was concern that she had a pulmonary embolism. Her Doppler of her lower extremity was negative. She will be admitted for further workup of her pleuritic chest pain including a V/Q scan that was not able to be performed in the emergency room. Allergies fentanyl Allergy (Severe, Verified 07/02/19 22:05) Hives butorphanol tartrate [From Stadol] Allergy (Verified 07/02/19 22:05) confusion metoclopramide HCl [From Reglan] Allergy (Verified 07/02/19 22:05) Shortness of breath sulfamethoxazole [From Bactrim] Allergy (Verified 07/02/19 22:05) Hives/Rash trimethoprim [From Bactrim] Allergy (Verified 07/02/19 22:05) Hives/Rash codeine Adverse Reaction (Mild, Verified 07/02/19 22:05) Nausea/Vomiting Bactrim DS Allergy (Uncoded 06/18/19 11:38) Hives/Rash Home Medications: Raltegravir Potassium [Isentress] 400 mg PO BID 02/28/12 Lorazepam [Ativan] 2 mg PO BID* PRN 04/02/12 Sertraline [Zoloft*] 200 mg PO DAILY 09/15/12 Emtricitabine/Tenofov Alafenam [Descovy 200-25 mg Tablet] 1 tab PO BEDTIME 10/05 Ferrous Sulfate 325 mg PO BID #60 tablet 06/18/18 Buspirone HCl [Buspar] 10 mg PO BID 06/18/19 Dicyclomine HCl 1 tab PO DAILY PRN 06/18/19 Esomeprazole Mag Trihydrate [Nexium] 40 mg PO BID 06/18/19 Metoprolol Tartrate 100 mg PO BID 06/18/19 Triamterene/Hydrochlorothiazid [Triamterene-Hctz 37.5-25 mg Cp] 1 each PO DAILY 06/18/19 Varenicline Tartrate [Chantix] 1 mg PO BID 06/18/19 Amoxicillin/Potassium Clav [Augmentin 875-125 Tablet] 1 each PO BID #28 tablet 06/22/19 Hydralazine HCl 50 mg PO BID #60 tablet 06/22/19 Lisinopril [Zestril] 40 mg PO DAILY #60 tablet 06/22/19 Metformin HCl 500 mg PO DAILY #30 tablet 06/22/19 NIFEdipine [Nifedipine ER] 60 mg PO BID #60 tab.er.24 06/22/19 Promethazine/Dextrometh Syr [Phenergan Dm Oral Syrup*] 5 ml PO Q6H PRN #200 ml 06/22/19 Albuterol Neb [Proventil 0.083% Neb Soln] 3 ml IH BID PRN #90 amp 07/03/19 Amox/Clavulanate [Augmentin 875-125 Tab*] 875 mg PO BID #10 tab 07/03/19 Budesonide/Formoterol Fumarate [Symbicort 160-4.5 Mcg Inhaler] 2 puff IH BID #1 hfa.aer.ad 07/03/19 Lidocaine 4% Patch [Lidoderm 5% Patch*] 1 patch TOP DAILY #15 patch 07/03/19 Tiotropium [Spiriva Handihaler*] 18 mcg IH DAILY PRN #1 inh 07/03/19 predniSONE [Prednisone*] 20 mg PO SEECOM #15 tab 07/03/19 - Past Medical/Surgical History Has patient received pneumonia vaccine in the past: No Diabetic: No -: HIV diag ~ [address] Yohan Cardenas in [place] -: . -: Bipolar disorder Dr Krause in [place] -: Hypertension -: COPD -: Tobacco abuse -: Alcohol abuse -: Anemia likely of chronic disease -: constrictor of urethia -: Appendectomy -: Cholecystectomy -: left shoulder rotated cuff -: Right foot repair -: Right shoulder replacement -: left shoulder rotated cuff Psychosocial/ Personal History: She lives at home. She is not . - Family History Father Medical History: Kidney disease Mother Medical History: Other (see notes) Notes: Epilepsy, chronic pain - Social History Smoking Status: Former smoker Alcohol use: No CD- Drugs: No Caffeine use: Yes Place of Residence: Home Review of Systems 10-point ROS is otherwise unremarkable Physical Examination - Vital Signs Temperature: 97.1 F Blood Pressure: 145/80 Pulse: 63 Respirations: 18 Pulse Ox (%): 98 - Physical Exam General: Alert, In no apparent distress, Oriented x3 HEENT: Atraumatic, PERRLA, Mucous membr. moist/pink, EOMI, Sclerae nonicteric Neck: Supple, 2+ carotid pulse no bruit, No LAD, Without JVD or thyroid abnormality Respiratory: Clear to auscultation bilaterally, Normal air movement Cardiovascular: Regular rate/rhythm, Normal S1 S2, No murmurs Gastrointestinal: Normal bowel sounds, Soft and benign, Non-distended, No tenderness Musculoskeletal: No clubbing, No swelling, No tenderness Integumentary: No rashes Neurological: Normal gait, Normal speech, Normal strength at 5/5 x4 extr, Normal tone, Sensation intact, Cranial nerves 3-12 intact, Normal affect Lymphatics: No axilla or inguinal lymphadenopathy - Studies Microbiology Data (last 24 hrs): 07/02/19 15:51 Clean Catch Urine [place] Count - Final 07/02/19 15:51 Clean Catch Urine - Final No growth. Assessment & Plan - Problems (Diagnosis) (1) Pleuritic chest pain Status: Acute (2) COPD exacerbation Status: Acute (3) Chest pain Onset Date: 05/26/15 Status: Acute Qualifiers: Chest pain type: unspecified Qualified Code(s): R07.9 - Chest pain, unspecified (4) Dyspnea Onset Date: 10/06/16 Status: Acute (5) Intractable nausea and vomiting Onset Date: 06/30/17 Status: Acute (6) Pneumococcal pneumonia Status: Acute Qualifiers: Laterality: left (7) Bipolar disorder Onset Date: 05/26/15 Status: Chronic Qualifiers: - Plan Plan: 1. Continue with IV antibiotics 2. Repeat CT scan of the chest to evaluate for pulmonary embolism 3. Continue with nebs as needed 4. O2 per protocol 5. Continue with gentle hydration 6. GI and DVT prophylaxis Discharge Plan: Home Plan to discharge in: 48 Hours - Advance Directives Does patient have a Living Will: No Does patient have a Durable POA for Healthcare: Yes - Code Status/Comfort Care Code Status Assessed: Yes Code Status: Full Code Critical Care: No Time Spent Managing PTS Care (In Minutes): 40
== END 2019-07-03 14:13 | disposition home or self-care (01) ==
LOC: ER 13:45 → ERHOLD 18:13 → 2ND 20:42
PROVIDERS: ADMIT Family Medicine; ATTEND Family Medicine
DX: J18.9 Pneumonia, unspecified organism (principal); J44.0 Chronic obstructive pulmonary disease with (acute) lower respiratory infection; F31.9 Bipolar disorder, unspecified; E78.5 Hyperlipidemia, unspecified; I10 Essential (primary) hypertension; F10.21 Alcohol dependence, in remission; D64.9 Anemia, unspecified; E11.9 Type 2 diabetes mellitus without complications; G89.29 Other chronic pain; F17.210 Nicotine dependence, cigarettes, uncomplicated; E66.9 Obesity, unspecified; Z68.35 Body mass index [BMI] 35.0-35.9, adult; Z21 Asymptomatic human immunodeficiency virus [HIV] infection status
CPT/HCPCS: 93005; 87040 ×2; 87088; 85025 ×2; 80048; 36415; 83735 ×2; 85610; 85379; 80076; 81003; 84484; 83690; 80053; 84145; 83880; 71275; 71045; 71046; 93970; 94760 ×2; 96375; 96372; 96374; 99285; Q9967; J1650 ×2; J7030; J2405; G0378 ×3; 87086; J7512

== ENCOUNTER 2019-07-17 07:45 | Emergency (ER) | payer OTHER ==
--- OUTSIDE RECORDS SUMMARY | 2019-07-17 07:48 | XMS REPORT ---
:1955 Author Organization [facility] Address [address] [place] [address] Dr. Alexis [address] [place] [id number] Care Team Providers Name Role Phone SYL [...] detected (qualifier value) Not Detected URINALYSIS WITH [id number] 10:57:00 Test Item Value Reference Range Comments Color (test code=UCOLR) Dk. Yellow Clarity (test code=UCLAR) Hazy Glucose (test code=UGLUC) NEGATIVE NEGATIVE Bilirubin (test code=UBILI) NEGATIVE NEGATIVE Ketones (test code=UKET) NEGATIVE NEGATIVE Specific [place] (test code=USPGR) 1.025 1.005-1.030 Blood (test code=UBLD) [...]
--- OUTSIDE RECORDS SUMMARY | 2019-07-17 07:57 | XMS REPORT | Summary of Care ---
:1955 Author Organization [facility] Address [address] [place] [address] Care Team Providers Name Role Phone Brian Ramhan Primary Care Provider Reason for Visit Reason Comments Rx Concern/Question Encounter Details Date Type Department Care Team Description 06/15/2019 Telephone [facility] Rx Concern/Question Diseases- [id number] [place], [place] [id number] [place] [address], [address] [place] [address] [place] [address] Allergies Active Allergy Reactions Severity Noted Date Comments Metoclopramide Unknown - See comments 05/28/2016 Metoclopramide Hcl Anxiety 02/14/2015 Butorphanol Tartrate Hallucinations High 07/06/2010 Sulfamethoxazole Unknown - See comments 04/23/2016 Acetaminophen-Codeine Nausea and/or Vomiting 07/02/2016 documented as of this encounter (statuses as of 06/20/2019) Medications Medication Sig Dispensed Refills Start Date [...] 2 (two) Generalized anxiety times daily. disorder documented as of this encounter (statuses as of 06/20/2019) Active Problems Problem Noted Date Obesity (BMI 30-39.9) 05/10/2016 Anemia 02/22/2015 Hypovolemia due to hemorrhage 02/21/2015 Chest pain 02/21/2015 S/p reverse total shoulder arthroplasty 02/17/2015 Posttraumatic stress disorder 09/27/2012 Human immunodeficiency virus (HIV) disease 11/18/2010 Bipolar 2 disorder 11/18/2010 Chronic hepatitis C 11/18/2010 Hypertension 11/18/2010 documented as of this encounter (statuses as of 06/20/2019) Immunizations Name Administration Dates Next Due HEPATITIS A 03/02/2004, 08/01/2003 Hep B, Adol or Pedi Dosage 09/01/2011, 03/17/2011, 02/10/2011 Influenza Virus Vaccine 03/08/2017, 02/16/2012, 02/10/2011 Influenza Virus Vaccine (3+ yrs) 01/30/2014 PPD (TB) 02/16/2012, 11/18/2010, 10/04/2001 Pneumococcal 13 Conjugate, PCV13 (Prevnar 01/30/2014 13) Pneumococcal Polysaccharide, PPSV23 02/16/2012, 10/04/2001 (PNEUMOVAX) TDAP (ADACEL) VACCINE 11/18/2010 documented as of this encounter Social History Tobacco Use Types Packs/Day Years Used Date Current Some Day Smoker Cigarettes 41 Quit: 09/29/2011 Smokeless Tobacco: Former User Quit: 09/29/2011 Comments: Smokes approx 1-2 cigarettes per day when she smokes Alcohol Use Drinks/Week oz/Week Comments No 0 Standard drinks or equivalent 0.0 Sex Assigned at Date Recorded Not on file Job Start Date Occupation Industry Not on file Not on file Not on file Travel History Travel Start Travel End No recent travel history available. documented as of this encounter Last Filed Vital Signs Not on filedocumented in this encounter Plan of Treatment Date Type Specialty Care Team Description 07/02/2019 Office Visit Psychiatry Lei Trinidad MD [address] [place] [address]. [place] [address] 10/17/2019 Office Visit Infectious Disease [facility] [address] [facility] [id number] [place] [address] [phone] Health Maintenance Due Date Last Done Comments [...] YEARS Completed 01/30/2014, 02/16/2012, COMBINED SERIES 10/04/2001 documented as of this encounter Implants Implanted Type Area Target Trimmer Device Shelf Model / Identifier Expiration Serial / Lot Date Central Screw SHOULDER Left: [employer]omet 03/23/2024 [id number] / Implanted: Qty: 1 on 02/17/2015 by Roland Lafleur MD at [facility] Shoulder [id number] / [id number] Mini Humeral Stem SHOULDER Left: [employer] 07/31/2024 [id number] / Implanted: Qty: 1 on 02/17/2015 by Roland Lafleur MD at [facility] Shoulder [id number] / [id number] Fixed Locking Screw SHOULDER Left: [employer] 12/11/2024 [id number] / Implanted: Qty: 1 on 02/17/2015 by Roland Lafleur MD at [facility] Shoulder [id number] / [id number] [place] SHOULDER Left: [employer] 12/05/2024 [id number] / Implanted: Qty: 1 on 02/17/2015 by Roland Lafleur MD at [facility] Shoulder [id number] / [id number] Fixed Locking Screw SHOULDER Left: [employer] 12/30/2024 [id number] / Implanted: Qty: 1 on 02/17/2015 by Roland Lafleur MD at [facility] Shoulder [id number] / [id number] Fixed Locking Screw SHOULDER Left: [employer] 12/31/2024 [id number] / Implanted: Qty: 1 on 02/17/2015 by Roland Lafleur MD at [facility] Shoulder [id number] / [id number] Humeral Tray With Locking Ring SHOULDER Left: [employer] 12/16/2024 [id number] / Implanted: Qty: 1 on 02/17/2015 by Roland Lafleur MD at [facility] Shoulder [id number] / [id number] [place] Mini Baseplate SHOULDER Left: [employer] 02/04/2025 [id number] / Implanted: Qty: 1 on 02/17/2015 by Roland Lafleur MD at [facility] Shoulder [id number] / [id number] Humeral Bearing SHOULDER Left: [employer] 12/12/2019 [id number] / Implanted: Qty: 1 on 02/17/2015 by Roland Lafleur MD at [facility] Shoulder [id number] / [id number] Fixed Locking Scew SHOULDER Left: [employer] 12/11/2024 [id number] / Implanted: Qty: 1 on 02/17/2015 by Roland Lafleur MD at [facility] Shoulder [id number] / [id number] documented as of this encounter Results Not on filedocumented in this encounter Insurance Payer Benefit Plan / Subscriber ID Effective Phone Address Type Group Dates [employer] OPT[employer] [id number] 2018-Pre [address] [facility] sent [id number] [place] [address] [facility] MEDICAID OF xxxxxxxxx 2011-Pre [phone] Medicaid [place] sent [id number] [place] [address] [employer] - MANAGED AETNA MEDICARE [id number] 2019-Pre [address] Medicare Adv MEDICARE ADV sent [id number] [place] [address] documented as of this encounter Advance Directives Type Date Recorded Patient Freight Coordinator Explanation Advance Directives and Living 01/20/2015 9:28 AM Will Power of Extrusion Bender 01/20/2015 9:28 AM
--- OUTSIDE RECORDS SUMMARY | 2019-07-17 07:57 | XMS REPORT | Summary of Care ---
:1955 Author Organization [facility] - [facility] Address [address] [place] [address] Care Team Providers Name Role Phone Brian Rahman Primary Care Provider Reason for Visit Reason Comments Rx Concern/Question Encounter Details Date Type Department Care Team Description 06/15/2019 Telephone [facility] Infectious [place] PA Rx Concern/Question Diseases- [id number] [place], [place] [id number] [place] [address], [address] [place] [address] [place] [address] Allergies Active Allergy Reactions Severity [...] 07/02/2019 Office Visit Psychiatry Lei Trinidad MD [address] [place] [address]. [place] [address] 10/17/2019 Office Visit Infectious Disease [place] PA [address] [facility] [id number] [place] [address] [phone] Health Maintenance Due Date Last Done Comments [...] of this encounter Implants Implanted Type Area Farmer Vegetable Device Shelf Model / Identifier Expiration Serial / Lot Date Central Screw SHOULDER Left: Biomet 03/23/2024 [id number] / Implanted: Qty: 1 on 02/17/2015 by Roland Lafleur MD at [facility] Shoulder [id number] / [id number] Mini Humeral Stem SHOULDER Left: Biomet 07/31/2024 [id number] / Implanted: Qty: 1 on 02/17/2015 by Roland Lafleur MD at [facility] Shoulder [id number] / [id number] Fixed Locking Screw SHOULDER Left: Biomet 12/11/2024 [id number] / Implanted: Qty: 1 on 02/17/2015 by Roland Lafleur MD at [facility] Shoulder [id number] / [id number] Glenosphere SHOULDER Left: Biomet 12/05/2024 [id number] / Implanted: Qty: 1 on 02/17/2015 by Roland Lafleur MD at [facility] Shoulder [id number] / [id number] Fixed Locking Screw SHOULDER Left: Biomet 12/30/2024 [id number] / Implanted: Qty: 1 on 02/17/2015 by Roland Lafleur MD at [facility] Shoulder [id number] / [id number] Fixed Locking Screw SHOULDER Left: Biomet 12/31/2024 [id number] / Implanted: Qty: 1 on 02/17/2015 by Roland Lafleur MD at [facility] Shoulder [id number] / [id number] Humeral Tray With Locking Ring SHOULDER Left: Biomet 12/16/2024 [id number] / Implanted: Qty: 1 on 02/17/2015 by Roland Lafleur MD at [facility] Shoulder [id number] / [id number] Glensphere Mini Baseplate SHOULDER Left: Biomet 02/04/2025 [id number] / Implanted: Qty: 1 on 02/17/2015 by Roland Lafleur MD at [facility] Shoulder [id number] / [id number] Humeral Bearing SHOULDER Left: Biomet 12/12/2019 [id number] / Implanted: Qty: 1 on 02/17/2015 by Roland Lafleur MD at [facility] Shoulder [id number] / [id number] Fixed Locking Scew SHOULDER Left: Biomet 12/11/2024 [id number] / Implanted: Qty: 1 on 02/17/2015 by Roland Lafleur MD at [facility] Shoulder [id number] / [id number] documented as of this encounter Results Not on filedocumented in this encounter Insurance Payer Benefit Plan / Subscriber ID Effective Phone Address Type Group Dates [employer] [id number] 2018-Pre [address]OX [facility] sent [id number] [place] [address] [facility] MEDICAID OF xxxxxxxxx 2011-Pre [phone] Medicaid [place] sent [id number] [place] [address] AETNA - MANAGED AETNA MEDICARE [id number] 2019-Pre [address] Medicare Adv MEDICARE ADV sent [id number] [place] [address] documented as of this encounter Advance Directives Type Date Recorded Patient Corporate Account Executive Explanation Advance Directives and Living 01/20/2015 9:28 AM Will Power of Ticket Chopper Assembler 01/20/2015 9:28 AM
--- OUTSIDE RECORDS SUMMARY | 2019-07-17 07:58 | XMS REPORT | Clinical Summary ---
:1955 Author Organization [facility] - [facility] Address [address] [place] [address] Care Team Providers Name Role Phone Brian [...] Take 1 tablet by 60 tablet 0 07/06/2019 Active tabletIndications: mouth 2 (two) Generalized anxiety times daily. 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 Posttraumatic stress disorder 09/27/2012 Human immunodeficiency virus (HIV) disease 11/18/2010 Bipolar 2 disorder 11/18/2010 Chronic hepatitis C 11/18/2010 Hypertension 11/18/2010 Encounters Date Type Specialty Care Team Description 06/15/2019 Telephone Infectious Disease Santiago Cardenas PA Rx Concern/ Question 06/13/2019 Telephone Public Health & Team, [facility] Health HEALTH MAINTENANCE; General Preventive Maintenance PAP SMEAR; Well Medicine Woman Exam 05/10/2019 Refill Infectious Disease Santiago Cardenas PA Refill Request 05/09/2019 Refill Infectious Disease Santiago Cardenas PA Refill Request 04/18/2019 Psychiatric Nurse Visit Phlebotomy Santiago Cardenas PA Symptomatic HIV [facility] infection 04/18/2019 Office Visit Infectious Disease Santiago Cardenas PA Symptomatic HIV infection (Primary Dx); Smoking addiction 04/18/2019 Orders Only Doctor Unassigned, [place] 04/11/2019 Refill Infectious Disease Santiago Cardenas PA Refill Request (Descovy) 04/09/2019 Refill Infectious Disease Santiago Cardenas PA Refill Request (ISENTRESS 400 mg tablet) from Last 3 Months Immunizations Name Administration [...] comments Father ESRD Coronary Heart Disease Father MD, late 60s? Cancer Mother leukemia Relation Name Status Comments Father stroke or MD Father Father Father Mother Mother Social History [...] Comments Blood Pressure 124/75 04/30/2019 8:45 AM MEDICAL APPOINTMENT CLERK Pulse 61 04/30/2019 8:45 AM MEDICAL APPOINTMENT CLERK Temperature 36.3 C (97.3 F) 04/18/2019 8:31 AM MEDICAL APPOINTMENT CLERK Respiratory Rate 18 04/30/2019 8:45 AM MEDICAL APPOINTMENT CLERK Oxygen Saturation 98% 06/27/2016 11:12 AM MEDICAL APPOINTMENT CLERK Inhaled Oxygen Concentration - - Weight 92.5 kg (204 lb) 04/30/2019 8:45 AM MEDICAL APPOINTMENT CLERK Height 162.6 cm (5' 4") 04/30/2019 8:45 AM MEDICAL APPOINTMENT CLERK Body Mass Index 35.02 04/30/2019 8:45 AM MEDICAL APPOINTMENT CLERK Plan of Treatment Date Type Specialty Care Team Description 07/10/2019 Office Visit Infectious Disease Santiago Cardenas PA [address] [facility] [address] [place], [place] [address] 10/17/2019 Office Visit Infectious Disease Santiago Cardenas PA [address] [place], [place] [id number] Health Maintenance Due Date Last Done Comments [...] COMBINED SERIES 10/04/2001 Implants Implanted Type Area Booth Manager Device Shelf Model / Identifier Expiration Serial / Lot Date Central Screw SHOULDER Left: Biomet 03/23/2024 [id number] / Implanted: Qty: 1 on 02/17/2015 by Roland Lafleur MD at [facility] Shoulder [id number] / [id number] Mini Humeral Stem SHOULDER Left: Biomet 07/31/2024 [id number] / Implanted: Qty: 1 on 02/17/2015 by Roland Lafleur MD at [facility] Shoulder [id number] / [id number] Fixed Locking Screw SHOULDER Left: Biomet 12/11/2024 [id number] / Implanted: Qty: 1 on 02/17/2015 by Roland Lafleur MD at [facility] Shoulder [id number] / [id number] Glenosphere SHOULDER Left: Biomet 12/05/2024 [id number] / Implanted: Qty: 1 on 02/17/2015 by Roland Lafleur MD at [facility] Shoulder [id number] / [id number] Fixed Locking Screw SHOULDER Left: Biomet 12/30/2024 [id number] / Implanted: Qty: 1 on 02/17/2015 by Roland Lafleur MD at [facility] Shoulder [id number] / [id number] Fixed Locking Screw SHOULDER Left: Biomet 12/31/2024 [id number] / Implanted: Qty: 1 on 02/17/2015 by Roland Lafleur MD at [facility] Shoulder [id number] / [id number] Humeral Tray With Locking Ring SHOULDER Left: Biomet 12/16/2024 [id number] / Implanted: Qty: 1 on 02/17/2015 by Roland Lafleur MD at [facility] Shoulder [id number] / [id number] Glensphere Mini Baseplate SHOULDER Left: Biomet 02/04/2025 [id number] / Implanted: Qty: 1 on 02/17/2015 by Roland Lafleur MD at [facility] Shoulder [id number] / [id number] Humeral Bearing SHOULDER Left: Biomet 12/12/2019 [id number] / Implanted: Qty: 1 on 02/17/2015 by Roland Lafleur MD at [facility] Shoulder [id number] / [id number] Fixed Locking Scew SHOULDER Left: Biomet 12/11/2024 [id number] / Implanted: Qty: 1 on 02/17/2015 by Roland Lafleur MD at [facility] Shoulder [id number] / [id number] Procedures Procedure Name Priority Date/Time Associated Comments Diagnosis CBC WITH DIFFERENTIAL Routine 04/18/2019 10:10 Symptomatic HIV Results for this AM MEDICAL APPOINTMENT CLERK infection procedure are in the results section. CBC WITH DIFFERENTIAL Routine 04/18/2019 10:10 Symptomatic HIV Results for this AM MEDICAL APPOINTMENT CLERK infection procedure are in the results section. CD4 SUBSET ASSAY Routine 04/18/2019 10:10 Symptomatic HIV Results for this AM MEDICAL APPOINTMENT CLERK infection procedure are in the results section. HIV1 BY REAL-TIME PCR Routine 04/18/2019 10:10 Symptomatic HIV Results for this QUANT AM MEDICAL APPOINTMENT CLERK infection procedure are in the results section. [facility] PATIENT FINANCIAL Routine 04/18/2019 8:27 POLICY AM MEDICAL APPOINTMENT CLERK NO SHOW OR MISSED Routine 04/18/2019 8:27 APPOINTMENT POLICY AM MEDICAL APPOINTMENT CLERK ACKNOWLEDGEMENT NOTICE OF PRIVACY Routine 04/18/2019 8:27 PRACTICES AM MEDICAL APPOINTMENT CLERK CONSENT/REFUSAL FOR Routine 04/18/2019 8:26 DIAGNOSIS AND TREATMENT AM MEDICAL APPOINTMENT CLERK ASSIGNMENT OF BENEFITS Routine 04/18/2019 8:26 AM MEDICAL APPOINTMENT CLERK from Last 3 Months Results CBC WITH DIFFERENTIAL (04/18/2019 10:10 AM MEDICAL APPOINTMENT CLERK) WBC 7.75 4.30 - 11.10 [facility] LABORATORY 10*3/L SERVICES RBC 4.66 3.93 - 5.25 [facility]ORY 10*6/L SERVICES HGB 12.0 11.6 - 15.0 [facility] g/dL SERVICES HCT 39.5 35.7 - 45.2 % [facility] SERVICES MCV 84.8 80.6 - 95.5 fL [facility] SERVICES MCH 25.8 (L) 25.9 - 32.8 pg [facility]OR[facility] SERVICES MCHC 30.4 (L) 31.6 - 35.1 [facility] g/dL SERVICES RDW-SD 62.6 (H) 39.0 - 49.9 fL [facility] SERVICES RDW-CV 20.6 (H) 12.0 - 15.5 % [facility]ORATORY SERVICES PLT 230 166 - 358 [facility]ORY 10*3/L SERVICES MPV 10.3 9.5 - 12.9 fL [facility] SERVICES NRBC/100 WBC 0.0 0.0 - 10.0 /100 [facility] WBCs SERVICES NRBC x10^3 <0.01 10*3/L [facility] SERVICES GRAN MAT (NEUT) % 71.3 % [facility] IMM GRAN % 0.80 % [facility] LYMPH % 19.4 % [facility] MONO % 7.2 % [facility] EOS % 0.9 % [facility] BASO % 0.4 % [facility] GRAN MAT x10^3(ANC) 5.53 1.88 - 7.09 [facility] 10*3/uL SERVICES IMM GRAN x10^3 0.06 0.00 - 0.06 [facility] 10*3/uL SERVICES LYMPH x10^3 1.50 1.32 - 3.29 [facility] 10*3/uL SERVICES MONO x10^3 0.56 0.33 - 0.92 [facility] 10*3/uL SERVICES EOS x10^3 0.07 0.03 - 0.39 [facility] 10*3/uL SERVICES BASO x10^3 0.03 0.01 - 0.07 [facility] 10*3/uL SERVICES Specimen Blood Performing Organization Address City/State/Zipcode Phone Number [facility] SERVICES CLIA: [id number], [address] [place] [address] [phone] [facility] HIV1 BY REAL-TIME PCR QUANT (04/18/2019 10:10 AM MEDICAL APPOINTMENT CLERK) HIV 1 by Real-Time Not Detected Not Detected [facility] LABORATORY PCR SERVICES Specimen Blood Narrative Performed At HIV-1 Real-Time PCR [facility] SERVICES Interpretative data: [employer] m2000 Real Time HIV-1 reverse orthopedic cast specialist-polymerase chain reaction (RT-PCR) assay is used. It [...] upper limit of quantification. Performing Organization Address City/State/Zipcode Phone Number [facility] SERVICES CLIA: [id number], [address] [place] [address] [phone] [facility] CD4 SUBSET ASSAY (04/18/2019 10:10 AM MEDICAL APPOINTMENT CLERK) CD4 % 37 31 - 60 % [facility] SERVICES CD4 Absolute 533 410-1,590 Cells/L [facility] SERVICES Specimen Blood Performing Organization Address City/State/Zipcode Phone Number [facility] SERVICES CLIA: [id number], [address] [place] [address] [phone] [facility] PATIENT FINANCIAL POLICY (04/18/2019 8:27 AM MEDICAL APPOINTMENT CLERK) Specimen Performing Organization Address City/State/Zipcode Phone Number HIM NO SHOW OR MISSED APPOINTMENT POLICY ACKNOWLEDGEMENT (04/18/2019 8:27 AM MEDICAL APPOINTMENT CLERK) Specimen Performing Organization Address City/State/Zipcode Phone Number HIM NOTICE OF PRIVACY PRACTICES (04/18/2019 8:27 AM MEDICAL APPOINTMENT CLERK) Specimen Performing Organization Address City/State/Zipcode Phone Number HIM CONSENT/REFUSAL FOR DIAGNOSIS AND TREATMENT (04/18/2019 8:26 AM MEDICAL APPOINTMENT CLERK) Specimen Performing Organization Address City/State/Zipcode Phone Number HIM ASSIGNMENT OF BENEFITS (04/18/2019 8:26 AM MEDICAL APPOINTMENT CLERK) Specimen Performing Organization Address City/State/Zipcode Phone Number HIM from Last 3 Months Insurance Payer Benefit Plan / Subscriber ID Effective Phone Address Type Group Dates [facility] [id number] 2019-Pre Medicare Adv HEALTHCARE - HEALTHCARE sent HMO MANAGED DUAL COMPLETE MEDICARE HMO [employer] OPT[employer] [id number] 2019-Pre [address]OX [facility] sent [id number] [place] [address] [facility] MEDICAID OF xxxxxxxxx 2011-Pre [phone] Medicaid [place] sent [phone] [place] [address] [facility] Self 1955 [phone] (Home) [address] [address] Advance Directives Type Date Recorded Patient Manager Music Explanation Advance Directives and Living 01/20/2015 9:28 AM Will Power of Disability Insurance Hearing Officer 01/20/2015 9:28 AM
--- OUTSIDE RECORDS SUMMARY | 2019-07-17 07:59 | XMS REPORT | Clinical Summary ---
:[address] [facility] - [facility] Address [address] [place] [id number] Care Team Providers Name Role Phone Brian [...] tablet by 60 tablet 0 10/14/2018 Active ([facility]) 400 mg mouth 2 (two) tablet times [...] by 0 Active capsule mouth every morning. emtricitabine-tenofovi Take one po daily 30 tablet 5 05/14/2019 Active r alafen (DESCOVY) tabletIndications: Symptomatic HIV infection raltegravir Take 1 tablet by 60 tablet 5 05/14/2019 Active (ISENTRESS) 400 mg mouth 2 (two) tabletIndications: times daily. Symptomatic HIV infection cloNIDine 0.1 mg Take 0.1 mg by 0 Active tablet mouth 3 (three) times daily. metFORMIN 500 mg Take 500 mg by 0 Active tablet mouth daily. amoxicillin-clavulanat Take 1 tablet by 0 Active e 875-125 mg per mouth 2 (two) tablet times daily. LORazepam 2 mg Take 1 tablet by 60 tablet 2 07/09/2019 Active tabletIndications: mouth 2 (two) Bipolar 2 disorder times daily as needed (anxiety). busPIRone 10 mg Take 1 tablet by 90 tablet 2 07/09/2019 Active tabletIndications: mouth 3 (three) Generalized anxiety times daily. disorder SERTraline 100 mg Take 2 tablets by 60 tablet 2 07/09/2019 Active tabletIndications: mouth daily. 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 Posttraumatic stress disorder 09/27/2012 Human immunodeficiency virus (HIV) disease 11/18/2010 Bipolar 2 disorder 11/18/2010 Chronic hepatitis C 11/18/2010 Hypertension 11/18/2010 Encounters Date Type Specialty Care Team Description 06/15/2019 Telephone Infectious Disease Santiago aCrdenas PA Rx Concern/ Question 06/13/2019 Telephone Public Health & Team, [facility] Health HEALTH MAINTENANCE; General Preventive Maintenance PAP SMEAR; Well Medicine Woman Exam 05/10/2019 Refill Infectious Disease Santiago Cardenas PA Refill Request 05/09/2019 Refill Infectious Disease Santiago Cardenas PA Refill Request 04/18/2019 Cost Reduction Engineer Visit Phlebotomy Santiago Cardenas PA Symptomatic HIV [facility] infection 04/18/2019 Office Visit Infectious Disease Santiago Cardenas PA Symptomatic HIV infection (Primary Dx); Smoking addiction 04/18/2019 Orders Only Doctor Unassigned, [place] 04/11/2019 Refill Infectious Disease Santiago Cardenas PA [...] comments Father ESRD Coronary Heart Disease Father [place], late 60s? Cancer Mother leukemia Relation Name Status Comments Father stroke or SD Father Father Father Mother Mother Social History [...] Sign Reading Time Taken Comments Blood Pressure 121/84 07/09/2019 9:33 AM FILM EDITOR SUPERVISOR Pulse 72 07/09/2019 9:33 AM FILM EDITOR SUPERVISOR Temperature 36.3 C (97.3 F) 04/18/2019 8:31 AM FILM EDITOR SUPERVISOR Respiratory Rate 18 07/09/2019 9:33 AM FILM EDITOR SUPERVISOR Oxygen Saturation 98% 06/27/2016 11:12 AM FILM EDITOR SUPERVISOR Inhaled Oxygen Concentration - - Weight 95 kg (209 lb 6.4 oz) 07/09/2019 9:33 AM FILM EDITOR SUPERVISOR Height 162.6 cm (5' 4") 07/09/2019 9:33 AM FILM EDITOR SUPERVISOR Body Mass Index 35.94 07/09/2019 9:33 AM FILM EDITOR SUPERVISOR Plan of Treatment Date Type Specialty Care Team Description 07/17/2019 Office Visit Infectious Disease Santiago Cardenas PA [address] [facility] [id number] [place], [place] [address] 10/17/2019 Office Visit Infectious Disease Santiago Cardenas PA [address] [facility] [id number] [place], [place] [id number] Health Maintenance Due Date Last Done Comments [...] COMBINED SERIES 10/04/2001 Implants Implanted Type Area Certified Registered Nurse Anesthetist Device Shelf Model / Identifier Expiration Serial / Lot Date Central Screw SHOULDER Left: Biomet 03/23/2024 [id number] / Implanted: Qty: 1 on 02/17/2015 by Roland Lafleur MD at [facility] Shoulder [id number] / [id number] Mini Humeral Stem SHOULDER Left: Biomet 07/31/2024 [id number] / Implanted: Qty: 1 on 02/17/2015 by Roland Lafleur MD at [facility] Shoulder [id number] / [id number] Fixed Locking Screw SHOULDER Left: Biomet 12/11/2024 [id number] / Implanted: Qty: 1 on 02/17/2015 by Roland Lafleur MD at [facility] Shoulder [id number] / [id number] Glenosphere SHOULDER Left: Biomet 12/05/2024 [id number] / Implanted: Qty: 1 on 02/17/2015 by Roland Lafleur MD at [facility] Shoulder [id number] / [id number] Fixed Locking Screw SHOULDER Left: Biomet 12/30/2024 [id number] / Implanted: Qty: 1 on 02/17/2015 by Roland Lafleur MD at [facility] Shoulder [id number] / [id number] Fixed Locking Screw SHOULDER Left: Biomet 12/31/2024 [id number] / Implanted: Qty: 1 on 02/17/2015 by Roland Lafleur MD at [facility] Shoulder [id number] / [id number] Humeral Tray With Locking Ring SHOULDER Left: Biomet 12/16/2024 [id number] / Implanted: Qty: 1 on 02/17/2015 by Roland Lafleur MD at [facility] Shoulder [id number] / [id number] Glensphere Mini Baseplate SHOULDER Left: Biomet 02/04/2025 [id number] / Implanted: Qty: 1 on 02/17/2015 by Roland Lafleur MD at [facility] Shoulder [id number] / [id number] Humeral Bearing SHOULDER Left: Biomet 12/12/2019 [id number] / Implanted: Qty: 1 on 02/17/2015 by Roland Lafleur MD at [facility] Shoulder [id number] / [id number] Fixed Locking Scew SHOULDER Left: Biomet 12/11/2024 [id number] / Implanted: Qty: 1 on 02/17/2015 by Roland Lafleur MD at [facility] Shoulder [id number] / [id number] Procedures Procedure Name Priority Date/Time Associated Comments Diagnosis CBC WITH DIFFERENTIAL Routine 04/18/2019 10:10 Symptomatic HIV Results for this AM FILM EDITOR SUPERVISOR infection procedure are in the results section. CBC WITH DIFFERENTIAL Routine 04/18/2019 10:10 Symptomatic HIV Results for this AM FILM EDITOR SUPERVISOR infection procedure are in the results section. CD4 SUBSET ASSAY Routine 04/18/2019 10:10 Symptomatic HIV Results for this AM FILM EDITOR SUPERVISOR infection procedure are in the results section. HIV1 BY REAL-TIME PCR Routine 04/18/2019 10:10 Symptomatic HIV Results for this QUANT AM FILM EDITOR SUPERVISOR infection procedure are in the results section. [facility] PATIENT FINANCIAL Routine 04/18/2019 8:27 POLICY AM FILM EDITOR SUPERVISOR NO SHOW OR MISSED Routine 04/18/2019 8:27 APPOINTMENT POLICY AM FILM EDITOR SUPERVISOR ACKNOWLEDGEMENT NOTICE OF PRIVACY Routine 04/18/2019 8:27 PRACTICES AM FILM EDITOR SUPERVISOR CONSENT/REFUSAL FOR Routine 04/18/2019 8:26 DIAGNOSIS AND TREATMENT AM FILM EDITOR SUPERVISOR ASSIGNMENT OF BENEFITS Routine 04/18/2019 8:26 AM FILM EDITOR SUPERVISOR from Last 3 Months Results CBC WITH DIFFERENTIAL (04/18/2019 10:10 AM FILM EDITOR SUPERVISOR) WBC 7.75 4.30 - 11.10 [facility] 10*3/L SERVICES RBC 4.66 3.93 - 5.[address] [facility]AT[facility] 10*6/L SERVICES HGB 12.0 11.6 - 15.[address] [facility]ORATORY g/dL SERVICES HCT 39.5 35.7 - 45.2 % [facility] MCV 84.8 80.6 - 95.5 fL [facility] MCH 25.8 (L) 25.9 - 32.8 pg [facility] SERVICES MCHC 30.4 (L) 31.6 - 35.1 [facility] g/dL SERVICES RDW-SD 62.6 (H) 39.0 - 49.9 fL [facility] SERVICES RDW-CV 20.6 (H) 12.0 - 15.5 % [facility] PLT 230 166 - [address] [facility]ATORY 10*3/L SERVICES MPV 10.3 9.5 - 12.[address] [facility] SERVICES NRBC/100 WBC 0.0 0.0 - 10.0 /[address] [facility]ATORY WBCs SERVICES NRBC x10^3 <0.01 10*3/L [facility] SERVICES GRAN MAT (NEUT) % 71.3 [...] IMM GRAN x10^3 0.06 0.00 - 0.06 [facility] 10*3/uL SERVICES LYMPH x10^3 1.50 1.32 - 3.29 [facility] 10*3/uL SERVICES MONO x10^3 0.56 0.33 - 0.92 [facility] 10*3/uL SERVICES EOS x10^3 0.07 0.03 - 0.39 [facility] 10*3/uL SERVICES BASO x10^3 0.03 0.01 - 0.07 [facility] 10*3/uL SERVICES Specimen Blood Performing Organization Address City/State/Zipcode Phone Number [facility]AT[facility] SERVICES CLIA: [id number], [address] [place], [place] [address] [facility] HIV1 BY REAL-TIME PCR QUANT (04/18/2019 10:10 AM FILM EDITOR SUPERVISOR) HIV 1 by Real-Time Not Detected Not Detected [facility] LABORATORY PCR SERVICES Specimen Blood Narrative Performed At HIV-1 Real-Time PCR [facility] Interpretative data: Yates m2000 Real Time HIV-1 reverse glove maker-polymerase chain reaction (RT-PCR) assay is used. It [...] quantification. Performing Organization Address City/State/Zipcode Phone Number [facility] SERVICES CLIA: [id number], [address] [place] [address] [phone] [facility] CD4 SUBSET ASSAY (04/18/2019 10:10 AM FILM EDITOR SUPERVISOR) CD4 % 37 31 - 60 % [facility] SERVICES CD4 Absolute 533 410-1,590 Cells/L [facility] SERVICES Specimen Blood Performing Organization Address City/State/Zipcode Phone Number [facility] CLIA: [id number], [address] [place] [address] [facility] PATIENT FINANCIAL POLICY (04/18/2019 8:27 AM FILM EDITOR SUPERVISOR) Specimen Performing Organization Address City/State/Zipcode Phone Number HIM NO SHOW OR MISSED APPOINTMENT POLICY ACKNOWLEDGEMENT (04/18/2019 8:27 AM FILM EDITOR SUPERVISOR) Specimen Performing Organization Address City/State/Zipcode Phone Number HIM NOTICE OF PRIVACY PRACTICES (04/18/2019 8:27 AM FILM EDITOR SUPERVISOR) Specimen Performing Organization Address City/State/Zipcode Phone Number HIM CONSENT/REFUSAL FOR DIAGNOSIS AND TREATMENT (04/18/2019 8:26 AM FILM EDITOR SUPERVISOR) Specimen Performing Organization Address City/State/Zipcode Phone Number HIM ASSIGNMENT OF BENEFITS (04/18/2019 8:26 AM FILM EDITOR SUPERVISOR) Specimen Performing Organization Address City/State/Zipcode Phone Number HIM from Last 3 Months Insurance Payer Benefit Plan / Subscriber ID Effective Phone Address Type Group Dates [facility] [id number] 2019-Pre Medicare Adv HEALTHCARE - HEALTHCARE sent HMO MANAGED DUAL COMPLETE MEDICARE HMO [facility] [id number] 2019-Pre [address] [facility] sent [id number] [place] [address] [facility] MEDICAID OF xxxxxxxxx 2011-Pre [phone] Medicaid [place] sent [id number] [place] [address] [phone] [address] [address] [place] [address] [facility] Self 1955 [phone] [phone] [address] [place] [address] Advance Directives Type Date Recorded Patient Inspector And Mender Explanation Advance Directives and Living 01/20/2015 9:28 AM Will Power of Spool Winder 01/20/2015 9:28 AM
--- OUTSIDE RECORDS SUMMARY | 2019-07-17 08:00 | XMS REPORT | Clinical Summary ---
:1955 Author Organization [facility] - [facility] Address [address] [place] [address] Care Team Providers Name Role Phone Brian [...] tablet by 60 tablet 0 10/14/2018 [facility] ([facility] 400 mg mouth 2 (two) [...] Question 06/13/2019 Telephone Public Health & Team, [facility] Health HEALTH MAINTENANCE; General Preventive Maintenance PAP SMEAR; Well Medicine Woman Exam 05/10/2019 Refill Infectious Disease Santiago Cardenas PA Refill Request 05/09/2019 Refill Infectious Disease Santiago Cardenas PA Refill Request 04/18/2019 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 Cancer Mother leukemia Relation Name Status Comments Father stroke or [place] Father Father Father Mother Mother Social History [...] Comments Blood Pressure 121/84 07/09/2019 9:33 AM WEB SITE DEVELOPER Pulse 72 07/09/2019 9:33 AM WEB SITE DEVELOPER Temperature 36.3 C (97.3 F) 04/18/2019 8:31 AM WEB SITE DEVELOPER Respiratory Rate 18 07/09/2019 9:33 AM WEB SITE DEVELOPER Oxygen Saturation 98% 06/27/2016 11:12 AM WEB SITE DEVELOPER Inhaled Oxygen Concentration - - Weight 95 kg (209 lb 6.4 oz) 07/09/2019 9:33 AM WEB SITE DEVELOPER Height 162.6 cm (5' 4") 07/09/2019 9:33 AM WEB SITE DEVELOPER Body Mass Index 35.94 07/09/2019 9:33 AM WEB SITE DEVELOPER Plan of Treatment Date Type Specialty Care Team Description 07/17/2019 Office Visit Infectious Disease Santiago Cardenas PA [address] [facility] [id number] [place], [place] [address] 10/17/2019 Office Visit Infectious Disease Santiago Cardenas PA [address] [facility] [id number] [place], [place] [address] Health Maintenance Due Date Last Done Comments [...] COMBINED SERIES 10/04/2001 Implants Implanted Type Area Pile Driver Operator Barge Mounted Device Shelf Model / Identifier Expiration Serial / Lot Date Central Screw SHOULDER Left: Biomet 03/23/2024 [id number] / Implanted: Qty: 1 on 02/17/2015 by Roland Lafleur MD at [facility] Shoulder [id number] / [id number] Mini Humeral Stem SHOULDER Left: Biomet 07/31/2024 [id number] / Implanted: Qty: 1 on 02/17/2015 by Roland Lafleur MD at [facility] Shoulder [id number] / [id number] Fixed Locking Screw SHOULDER Left: Biomet 12/11/2024 [id number] / Implanted: Qty: 1 on 02/17/2015 by Roland Lafleur MD at [facility] Shoulder [id number] / [id number] Glenosphere SHOULDER Left: Biomet 12/05/2024 [id number] / Implanted: Qty: 1 on 02/17/2015 by Roland Lafleur MD at [facility] Shoulder [id number] / [id number] Fixed Locking Screw SHOULDER Left: Biomet 12/30/2024 [id number] / Implanted: Qty: 1 on 02/17/2015 by Roland Lafleur MD at [facility] Shoulder [id number] / [id number] Fixed Locking Screw SHOULDER Left: Biomet 12/31/2024 [id number] / Implanted: Qty: 1 on 02/17/2015 by Roland Lafleur MD at [facility] Shoulder [id number] / [id number] Humeral Tray With Locking Ring SHOULDER Left: Biomet 12/16/2024 [id number] / Implanted: Qty: 1 on 02/17/2015 by Roland Lafleur MD at [facility] Shoulder [id number] / [id number] Glensphere Mini Baseplate SHOULDER Left: Biomet 02/04/2025 [id number] / Implanted: Qty: 1 on 02/17/2015 by Roland Lafleur MD at [facility] Shoulder [id number] / [id number] Humeral Bearing SHOULDER Left: Biomet 12/12/2019 [id number] / Implanted: Qty: 1 on 02/17/2015 by Roland Lafleur MD at [facility] Shoulder [id number] / [id number] Fixed Locking Scew SHOULDER Left: Biomet 12/11/2024 [id number] / Implanted: Qty: 1 on 02/17/2015 by Roland Lafleur MD at [facility] Shoulder [id number] / [id number] Procedures Procedure Name Priority Date/Time Associated Comments Diagnosis CBC WITH DIFFERENTIAL Routine 04/18/2019 10:10 Symptomatic HIV Results for this AM WEB SITE DEVELOPER infection procedure are in the results section. CBC WITH DIFFERENTIAL Routine 04/18/2019 10:10 Symptomatic HIV Results for this AM WEB SITE DEVELOPER infection procedure are in the results section. CD4 SUBSET ASSAY Routine 04/18/2019 10:10 Symptomatic HIV Results for this AM WEB SITE DEVELOPER infection procedure are in the results section. HIV1 BY REAL-TIME PCR Routine 04/18/2019 10:10 Symptomatic HIV Results for this QUANT AM WEB SITE DEVELOPER infection procedure are in the results section. [facility] PATIENT FINANCIAL Routine 04/18/2019 8:27 POLICY AM WEB SITE DEVELOPER NO SHOW OR MISSED Routine 04/18/2019 8:27 APPOINTMENT POLICY AM WEB SITE DEVELOPER ACKNOWLEDGEMENT NOTICE OF PRIVACY Routine 04/18/2019 8:27 PRACTICES AM WEB SITE DEVELOPER CONSENT/REFUSAL FOR Routine 04/18/2019 8:26 DIAGNOSIS AND TREATMENT AM WEB SITE DEVELOPER ASSIGNMENT OF BENEFITS Routine 04/18/2019 8:26 AM WEB SITE DEVELOPER from Last 3 Months Results CBC WITH DIFFERENTIAL (04/18/2019 10:10 AM WEB SITE DEVELOPER) WBC 7.75 4.30 - 11.10 [facility] 10*3/L SERVICES RBC 4.66 3.93 - 5.25 [facility] 10*6/L SERVICES HGB 12.0 11.6 - 15.0 [facility] g/dL SERVICES HCT 39.5 35.7 - 45.2 % [facility] MCV 84.8 80.6 - 95.5 fL [facility] MCH 25.8 (L) 25.9 - 32.8 pg [facility] MCHC 30.4 (L) 31.6 - 35.1 [facility] g/dL SERVICES RDW-SD 62.6 (H) 39.0 - 49.9 fL [facility] SERVICES RDW-CV 20.6 (H) 12.0 - 15.5 % [facility] PLT 230 166 - 358 [facility] 10*3/L SERVICES MPV 10.3 9.5 - 12.9 fL [facility] SERVICES NRBC/100 WBC 0.0 0.0 - 10.0 /100 [facility] WBCs SERVICES NRBC x10^3 <0.01 10*3/L [facility] SERVICES GRAN MAT (NEUT) % 71.3 [...] IMM GRAN x10^3 0.06 0.00 - 0.06 [facility] 10*3/uL SERVICES LYMPH x10^3 1.50 1.32 - 3.29 [facility] 10*3/uL SERVICES MONO x10^3 0.56 0.33 - 0.92 [facility] 10*3/uL SERVICES EOS x10^3 0.07 0.03 - 0.39 [facility] 10*3/uL SERVICES BASO x10^3 0.03 0.01 - 0.07 [facility] 10*3/uL SERVICES Specimen Blood Performing Organization Address City/State/Zipcode Phone Number [facility] CLIA: [id number], [address] [place], [place] [address] [phone] [facility] HIV1 BY REAL-TIME PCR QUANT (04/18/2019 10:10 AM WEB SITE DEVELOPER) HIV 1 by Real-Time Not Detected Not Detected [facility] PCR SERVICES Specimen Blood Narrative Performed At HIV-1 Real-Time PCR [facility] Interpretative data: Yates m2000 Real Time HIV-1 reverse svp research & ebusiness operations-polymerase chain reaction (RT-PCR) assay is used. It [...] quantification. Performing Organization Address City/State/Zipcode Phone Number [facility] CLIA: [id number], [address] [place] [address] [facility] CD4 SUBSET ASSAY (04/18/2019 10:10 AM WEB SITE DEVELOPER) CD4 % 37 31 - 60 % [facility] CD4 Absolute 533 410-1,590 Cells/L [facility] Specimen Blood Performing Organization Address City/State/Zipcode Phone Number [facility] CLIA: [id number], [address] [place] [address] [facility] PATIENT FINANCIAL POLICY (04/18/2019 8:27 AM WEB SITE DEVELOPER) Specimen Performing Organization Address City/State/Zipcode Phone Number HIM NO SHOW OR MISSED APPOINTMENT POLICY ACKNOWLEDGEMENT (04/18/2019 8:27 AM WEB SITE DEVELOPER) Specimen Performing Organization Address City/State/Zipcode Phone Number HIM NOTICE OF PRIVACY PRACTICES (04/18/2019 8:27 AM WEB SITE DEVELOPER) Specimen Performing Organization Address City/State/Zipcode Phone Number HIM CONSENT/REFUSAL FOR DIAGNOSIS AND TREATMENT (04/18/2019 8:26 AM WEB SITE DEVELOPER) Specimen Performing Organization Address City/State/Zipcode Phone Number HIM ASSIGNMENT OF BENEFITS (04/18/2019 8:26 AM WEB SITE DEVELOPER) Specimen Performing Organization Address City/State/Zipcode Phone Number HIM from Last 3 Months Insurance Payer Benefit Plan / Subscriber ID Effective Phone Address Type Group Dates [facility] [id number] 2019-Pre Medicare Adv HEALTHCARE - HEALTHCARE sent HMO MANAGED DUAL COMPLETE MEDICARE HMO [employer] [id number] 2019-Pre [address] [facility] sent [phone] [employer] [place] [address] [facility] MEDICAID OF xxxxxxxxx 2011-Pre [phone] Medicaid [place] sent [id number] [place] [address] [phone] [address] [address] [place] [address] [facility] Self 1955 [phone] [address] ([address] [place] [address] Advance Directives Type Date Recorded Patient Customer Advisor Explanation Advance Directives and Living 01/20/2015 9:28 AM Will Power of Trim And Burr Operator 01/20/2015 9:28 AM
[2019-07-17] MEDS ORDERED: MORPHINE 4 MG/ML SYR ONE (08:35)
[2019-07-17] MEDS ORDERED: ONDANSETRON 4 MG/2 ML VIAL ONE (08:36)
[2019-07-17 08:39] LABS: Absolute Lymphocytes (CBC) 1.5 K/uL (0.7-4.9); Basophils % 0.4 % (0-1.3); Hematocrit 38.8 % (36.0-45.0); Lymphocytes % 14.4 % (15.3-44.8); MPV 7.8 fL (7.6-11.3); Protime INR 0.94; RBC Red Blood Cell Count 4.67 M/uL (3.86-4.86)
--- NOTE | 2019-07-17 08:55 | RAD REPORT ---
EXAM DESCRIPTION: RAD - Chest Single View - 07/17/2019 8:43 am CLINICAL HISTORY: chest pain Chest pain. COMPARISON: Chest Pa And Lat (2 Views) dated 07/03/2019; Chest Single View dated 07/02/2019; Chest Sin gle View dated 06/25/2019; Chest Pa And Lat (2 Views) dated 06/19/2019 FINDINGS: Portable technique limits examination quality. The lungs are grossly clear. The heart is upper limit of normal in size. Bilateral shoulder arthropla sty. IMPRESSION: No acute intrathoracic process suspected.
[2019-07-17 09:27] LABS: BUN Blood Urea Nitrogen 22 mg/dL (7-18); Bicarbonate 29 mmol/L (21-32); Glucose Level 100 mg/dL (74-106); Magnesium 2.1 mg/dL (1.8-2.4); NT PRO-BNP 457 pg/mL (<125); Potassium 3.4 mmol/L (3.5-5.1); Sodium Level 141 mmol/L (136-145); Troponin (Emerg Dept Use Only) < 0.02 ng/mL (0.0-0.045)
--- NOTE | 2019-07-17 10:28 | ER ---
Nurse's Notes [facility] Name: Marjan Fleming Age: 64 yrs Sex: Female : 1955 Arrival Date: 07/17/2019 Time: 07:45 Bed 8 Private MD: Lele Rahman H Diagnosis: Chest pain on breathing;Pleurisy Presentation: 07/17 07:58 Presenting complaint: Sharp left sided chest pain and SOB x 3 days. Pain radiates to hb left arm + tingling to left arm today. Transition of care: patient was not received from another setting of care. Onset of symptoms was July 16, 2019. Risk Assessment: Do you want to hurt yourself or someone else? Patient reports no desire to harm self or others. Care prior to arrival: None. 07:58 Method Of Arrival: Ambulatory hb 07:58 Acuity: BLAYNE 3 hb 08:46 Initial Sepsis Screen: Does the patient meet any 2 criteria? No. Patient's initial ll1 sepsis screen is negative. Does the patient have a suspected source of infection? No. Patient's initial sepsis screen is negative. Triage Assessment: 08:42 General: Appears in no apparent distress. General: Behavior is calm, cooperative. ll1 Pain:. Pain: Complains of pain in anterior aspect of left upper chest, left lateral anterior chest and left breast Pain currently is 10 out of 10 on a pain scale. EENT: No deficits noted. Neuro: No deficits noted. Cardiovascular: No deficits noted. Reports chest pain, shortness of breath, since yesterday. Respiratory: Reports shortness of breath at rest. GI: No deficits noted. : No deficits noted. Derm: No deficits noted. Musculoskeletal: No deficits noted. Historical: - Allergies: 08:00 Bactrim DS; hb 08:00 Codeine; hb 08:00 metoclopramide HCl; hb 08:00 Stadol; hb 08:00 Demerol; hb - PMHx: 08:00 Bipolar disorder; HIV; Hepatitis; Atrial Fib; Anxiety; Chronic pain; COPD; esophageal hb varices; Hypertension; Migraines; Panic Attacks; - PSHx: 08:00 Appendectomy; Cholecystectomy; hb - Immunization history:: Adult Immunizations up to date. - Coronavirus screen:: The patient has NOT traveled to [place] in the past 14 days. The patient has NOT had contact with known/suspected case of Coronavirus? Proceed with normal triage procedures. - Social history:: Smoking status: Patient denies any tobacco usage or history of. - Ebola Screening: : No symptoms or risks identified at this time. Screenin:41 Abuse screen: Denies threats or abuse. Nutritional screening: No deficits noted. ll1 Tuberculosis screening: No symptoms or risk factors identified. Fall Risk Fall in past 12 months (25 points). No secondary diagnosis (0 pts). IV access (20 points). Ambulatory Aid- None/Bed Rest/Nurse Assist (0 pts). Gait- Normal/Bed Rest/Wheelchair (0 pts) Mental Status- Oriented to own ability (0 pts). Total Hauser Fall Scale indicates High Risk Score (45 or more points). Fall prevention measures have been instituted. Side Rails Up X 2 Frequent Obs/Assessments Occuring As available patient and family educated on Fall Prevention Program and Strategies. Assessment: 08:45 Reassessment: Patient and/or family updated on plan of care and expected duration. Pain ll1 level reassessed. General: No changes from previously charted assessment, see triage note.. 09:45 Reassessment: Patient appears in no apparent distress at this time. Patient and/or ph family updated on plan of care and expected duration. Pain level reassessed. Patient is alert, oriented x 3, equal unlabored respirations, skin warm/dry/pink. 10:43 Reassessment: Patient appears in no apparent distress at this time. Patient and/or ph family updated on plan of care and expected duration. Pain level reassessed. Patient is alert, oriented x 3, equal unlabored respirations, skin warm/dry/pink. Vital Signs: 08:00 BP 154 / 92; Pulse 71; Resp 16; Temp 97.3; Pulse Ox 98% ; Weight 94.8 kg; Height 5 ft. hb 4 in. (162.56 cm); Pain 9/10; 08:48 BP 157 / 73; Pulse 61; Resp 16; Pulse Ox 92% ; ll1 09:35 Pain 8/10; ll1 09:42 BP 139 / 66; Pulse 64; Resp 18; Pulse Ox 93% on R/A; ll1 10:39 BP 142 / 81; Pulse 65; Resp 19; Temp 97.8; Pulse Ox 95% ; Pain 9/10; ll1 08:00 Body Mass Index 35.87 (94.80 kg, 162.56 cm) hb Vitals: 08:49 Cardiac Rhythm Assessment Regular. ll1 ED Course: 07:45 Patient arrived in ED. mr 07:45 Lele Rahman DO is Private Physician. mr 07:54 Solange Bennett, RN is Primary Nurse. ph 07:59 Triage completed. hb 08:00 Arm band placed on. hb 08:06 Rosemary Cespedes FNP-C is [facility]. kb 08:06 Justus Kolb MD is Attending Physician. kb 08:40 Inserted saline lock: 22 gauge in right upper arm, using aseptic technique. Blood ll1 collected. Patient maintains SpO2 saturation greater than 95% on room air. 08:41 X-ray completed. Portable x-ray completed in exam room. Patient tolerated procedure mh1 well. 08:47 Patient has correct armband on for positive identification. Allergy band placed. Fall ll1 risk band placed. Bed in low position. Call light in reach. Side rails up X 1. shelter monitor on. Pulse ox on. NIBP on. Door closed. Noise minimized. Lights dimmed. Warm blanket given. Pillow given. Head of bed lowered. 09:43 EKG done, by ED staff, reviewed by Rosemary TOLEDO. em1 09:55 EKG done, by cytogenetic technologist. reviewed by Rosemary TOLEDO. at1 10:44 No provider procedures requiring assistance completed. IV discontinued, intact, ph bleeding controlled, No redness/swelling at site. Pressure dressing applied. Administered Medications: 08:38 Drug: morphine 4 mg Route: IVP; Site: right upper arm; ll1 09:35 Follow up: Pain 8/10 Adult ll1 09:35 Follow up: Response: No adverse reaction; Pain is decreased ll1 08:38 Drug: Zofran 4 mg Route: IVP; Site: right upper arm; ll1 10:40 Follow up: Response: No adverse reaction ll1 10:49 Drug: TORadol - Ketorolac 15 mg Route: IVP; Site: right upper arm; ph 10:50 Follow up: Response: No adverse reaction ph Outcome: 10:27 Discharge ordered by . kb 11:05 Discharged to home ambulatory. ph 11:05 Condition: good 11:05 Discharge instructions given to patient, Instructed on discharge instructions, follow up and referral plans. Demonstrated understanding of instructions, follow-up care. 11:06 Patient left the ED. ph Signatures: Rosemary Cespedes, [place] [facility]-Katelyn Hartmana Gracia Pollard mh1 Twan Simons em1 Danielle Leo, sharepoint solutions architect EKG Tat1 Solange Bennett RN RN Tata Rivera RN RN Yanira De Jesus RN RN ll1
--- NOTE | 2019-07-17 10:29 | EDPHYS ---
Physician Documentation [facility] Name: Marjan Fleming Age: 64 yrs Sex: Female : 1955 Arrival Date: 07/17/2019 Time: 07:45 Bed 8 Private MD: Lele Rahman H ED Physician Justus Kolb HPI: 07/17 08:32 This 64 yrs old Female presents to ER via Ambulatory with complaints of Chest kb Pain. 08:32 The patient or guardian reports chest pain that is located primarily in the anterior kb chest wall, left. Onset: 3 day(s) ago. The pain does not radiate. Associated signs and symptoms: Pertinent positives: None. The chest pain is described as sharp. Duration: The patient or guardian reports multiple episodes, that are intermittent. Modifying factors: The symptoms are alleviated by nothing. the symptoms are aggravated by cough, deep breath, sneezing. Severity of pain: At its worst the pain was moderate in the emergency department the pain is unchanged. The patient has not experienced similar symptoms in the past. The patient has not recently seen a physician. Pt reports left lower chest pain that is worse with inspiration, sneezing, and coughing. Pain started 3 days ago. States "I wasn't going to come in, but my daughter made me." Was here on 07/02/19 for pneumonia and reports the pain then was much worse and more diffuse. This pain is mild in comparison. Historical: - Allergies: 08:00 Bactrim DS; hb 08:00 Codeine; hb 08:00 metoclopramide HCl; hb 08:00 Stadol; hb 08:00 Demerol; hb - PMHx: 08:00 Bipolar disorder; HIV; Hepatitis; Atrial Fib; Anxiety; Chronic pain; COPD; esophageal hb varices; Hypertension; Migraines; Panic Attacks; - PSHx: 08:00 Appendectomy; Cholecystectomy; hb - Immunization history:: Adult Immunizations up to date. - Coronavirus screen:: The patient has NOT traveled to [place] in the past 14 days. The patient has NOT had contact with known/suspected case of Coronavirus? Proceed with normal triage procedures. - Social history:: Smoking status: Patient denies any tobacco usage or history of. - Ebola Screening: : No symptoms or risks identified at this time. ROS: 08:26 Constitutional: Negative for fever, chills, and weight loss, ENT: Negative for injury, kb pain, and discharge, Neck: Negative for injury, pain, and swelling, Respiratory: Negative for shortness of breath, cough, wheezing, and pleuritic chest pain, Abdomen/GI: Negative for abdominal pain, nausea, vomiting, diarrhea, and constipation, Back: Negative for injury and pain, MS/Extremity: Negative for injury and deformity, Skin: Negative for injury, rash, and discoloration, Neuro: Negative for headache, weakness, numbness, tingling, and seizure. 08:26 Cardiovascular: Positive for chest pain, with cough, of the left breast. Exam: 08:31 Constitutional: This is a well developed, well nourished patient who is awake, alert, kb and in no acute distress. Head/Face: Normocephalic, atraumatic. Neck: Trachea midline, no thyromegaly or masses palpated, and no cervical lymphadenopathy. Supple, full range of motion without nuchal rigidity, or vertebral point tenderness. No Meningismus. Cardiovascular: Regular rate and rhythm with a normal S1 and S2. No gallops, murmurs, or rubs. Normal PMI, no JVD. No pulse deficits. Respiratory: Lungs have equal breath sounds bilaterally, clear to auscultation and percussion. No rales, rhonchi or wheezes noted. No increased work of breathing, no retractions or nasal flaring. Abdomen/GI: Soft, non-tender, with normal bowel sounds. No distension or tympany. No guarding or rebound. No evidence of tenderness throughout. Skin: Warm, dry with normal turgor. Normal color with no rashes, no lesions, and no evidence of cellulitis. MS/ Extremity: Pulses equal, no cyanosis. Neurovascular intact. Full, normal range of motion. Neuro: Awake and alert, GCS 15, oriented to person, place, time, and situation. Cranial nerves II-XII grossly intact. Motor strength 5/5 in all extremities. Sensory grossly intact. Cerebellar exam normal. Normal gait. 08:31 Chest/axilla: Inspection: normal, Palpation: tenderness, that is moderate, of the left breast, that totally reproduces the patient's complaints. 08:31 ECG was reviewed by the Attending Physician. kb 09:56 ECG was reviewed by the Attending Physician. kb Vital Signs: 08:00 BP 154 / 92; Pulse 71; Resp 16; Temp 97.3; Pulse Ox 98% ; Weight 94.8 kg; Height 5 ft. hb 4 in. (162.56 cm); Pain 9/10; 08:48 BP 157 / 73; Pulse 61; Resp 16; Pulse Ox 92% ; ll1 09:35 Pain 8/10; ll1 09:42 BP 139 / 66; Pulse 64; Resp 18; Pulse Ox 93% on R/A; ll1 10:39 BP 142 / 81; Pulse 65; Resp 19; Temp 97.8; Pulse Ox 95% ; Pain 9/10; ll1 08:00 Body Mass Index 35.87 (94.80 kg, 162.56 cm) hb MDM: 08:06 Patient medically screened. kb 08:29 Data reviewed: vital signs, nurses notes. Data interpreted: Pulse oximetry: on room air kb is 98 %. Interpretation: normal. 10:27 The patient was not given aspirin in the Emergency Department. Patient reports taking kb aspirin within the past 24 hours. Counseling: I had a detailed discussion with the patient and/or guardian regarding: the historical points, exam findings, and any diagnostic results supporting the discharge/admit diagnosis, lab results, radiology results, the need for outpatient follow up, a family practitioner, to return to the emergency department if symptoms worsen or persist or if there are any questions or concerns that arise at home. 07/17 08:13 Order name: CBC with Diff 07/17 08:13 Order name: PT-INR 07/17 08:13 Order name: XRAY Chest (1 view) 07/17 08:54 Order name: CBC with Automated Diff; Complete Time: 08:58 [facility] 07/17 08:54 Order name: Protime (+INR); Complete Time: 08:58 [facility] 07/17 09:15 Order name: Basic Metabolic Panel [facility] 07/17 09:15 Order name: Troponin (Emerg Dept Use Only) [facility] 07/17 09:15 Order name: NT PRO-BNP [facility] 07/17 09:15 Order name: Magnesium [facility] 07/17 09:40 Order name: Troponin (emerg Dept Use Only); Complete Time: 10:27 07/17 08:13 Order name: EKG; Complete Time: 08:57 kb 07/17 08:13 Order name: Cardiac monitoring; Complete Time: 08:39 kb 07/17 08:13 Order name: EKG - Nurse/Tech; Complete Time: 08:39 kb 07/17 08:13 Order name: IV Saline Lock; Complete Time: 08:39 kb 07/17 08:13 Order name: Labs collected and sent; Complete Time: 08:39 kb 07/17 08:13 Order name: O2 Per Protocol; Complete Time: 08:39 kb 07/17 08:13 Order name: O2 Sat Monitoring; Complete Time: 08:40 kb 07/17 08:47 Order name: Labs - recollect needed: recollect c7; Complete Time: 10:50 bd 07/17 09:13 Order name: Chest Single View; Complete Time: 09:39 EDMS 07/17 09:40 Order name: EKG; Complete Time: 09:41 kb 07/17 09:40 Order name: EKG - Nurse/Tech; Complete Time: 09:42 kb EC:31 Rate is 63 beats/min. Rhythm is regular. QRS [place] is Normal. DC interval is normal at kb 134 msec. QRS interval is normal at 82 msec. QT interval is normal at 424 msec. 09:56 Rate is 60 beats/min. Rhythm is regular. QRS [place] is Normal. DC interval is normal at kb 176 msec. QRS interval is normal at 82 msec. QT interval is normal at 446 msec. Administered Medications: 08:38 Drug: morphine 4 mg Route: IVP; Site: right upper arm; ll1 09:35 Follow up: Pain 8/10 Adult ll1 09:35 Follow up: Response: No adverse reaction; Pain is decreased ll1 08:38 Drug: Zofran 4 mg Route: IVP; Site: right upper arm; ll1 10:40 Follow up: Response: No adverse reaction ll1 10:49 Drug: TORadol - Ketorolac 15 mg Route: IVP; Site: right upper arm; ph 10:50 Follow up: Response: No adverse reaction ph Disposition: 07/17/19 10:27 Discharged to Home. Impression: Chest pain on breathing, Pleurisy. - Condition is Stable. - Discharge Instructions: Nonspecific Chest Pain, Rxld-[id number], Pleurisy, [id number]-vl-[id number]. - Medication Reconciliation Form, Thank You Letter, Antibiotic Education, Prescription Opioid Use form. - Follow up: Emergency Department; When: As needed; Reason: Worsening of condition. Follow up: Private Physician; When: 2 - 3 days; Reason: Recheck today's complaints, Continuance of care, Re-evaluation by your physician. Addendum: 07/18/2019 16:10 Co-signature as Attending Physician, Justus Kolb MD I agree with the assessment and c restrepo plan of care. Signatures: Dispatcher [employer] EDWI Rosemary Cespedes, COMMUNITY HEALTH PROMOTER-C COMMUNITY HEALTH PROMOTER-CkHeydi Santos Corey, MD MD cha Hall, Patricia, RN RN ph Tata Rivera RN RN Yanira De Jesus RN RN ll1 Corrections: (The following items were deleted from the chart) 07/17 08:34 08:32 Pt reports left lower chest pain that is worse with inspiration, sneezing, and kb coughing. Pain started 3 days ago. States "I wasn't going to come in, but my daughter made me.". kb 10:23 08:57 BASIC METABOLIC PANEL+C.LAB.BRZ ordered. EDMS EDMS 10:23 08:57 MAGNESIUM+C.LAB.BRZ ordered. EDWI EDMS 10:23 08:57 PROBNP+C.LAB.BRZ ordered. EDWI EDMS 10:23 08:57 TROPONIN (EMERG DEPT USE ONLY)+C.LAB.BRZ ordered. EDWI EDMS 11:06 10:27 07/17/2019 10:27 Discharged to Home. Impression: Chest pain on breathing; ph Pleurisy. Condition is Stable. Forms are Medication Reconciliation Form, Thank You Letter, Antibiotic Education, Prescription Opioid Use. Follow up: Emergency Department; When: As needed; Reason: Worsening of condition. Follow up: Private Physician; When: 2 - 3 days; Reason: Recheck today's complaints, Continuance of care, Re-evaluation by your physician. kb
[2019-07-17] MEDS ORDERED: KETOROLAC 30 MG/ML INJ ONE (10:43)
[2019-07-17 11:30] VITALS: BP 142/81; TEMP 97.8; O2SAT 95
--- NOTE | 2019-07-17 11:52 | EKG ---
Test Date: 2019-07-17 Test Time: 09:52:18 Chest Pain Coordinator: STEPHANIE MEASUREMENT RESULTS: Intervals: Rate: 60 FL: 176 QRSD: 82 QT: 446 QTc: 446 [place]: P: 71 FL: 176 QRS: 16 T: 24 INTERPRETIVE STATEMENTS: Normal sinus rhythm Minimal voltage criteria for LVH, may be normal variant Borderline ECG Compared to ECG 07/17/2019 08:03:29 No significant changes Electronically Signed On 07-17-19 11:51:13 CARPENTRY TEACHER by Per Crane
--- NOTE | 2019-07-17 11:52 | EKG ---
Test Date: 2019-07-17 Test Time: 08:03:29 Japanese Tutor: ANABEL MEASUREMENT RESULTS: Intervals: Rate: 63 [place]: 134 QRSD: 82 QT: 424 QTc: 433 [place]: P: [place]: 134 QRS: 5 T: 46 INTERPRETIVE STATEMENTS: Normal sinus rhythm Moderate voltage criteria for LVH, may be normal variant Borderline ECG Compared to ECG 07/02/2019 15:17:57 Atrial premature complex(es) no longer present Electronically Signed On 07-17-19 11:51:19 KEG INSPECTOR by Per Crane
== END 2019-07-17 11:06 | disposition home or self-care (01) ==
LOC: ER 07:45
DX: R09.1 Pleurisy (principal); R07.1 Chest pain on breathing; I10 Essential (primary) hypertension; Z21 Asymptomatic human immunodeficiency virus [HIV] infection status; Z88.1 Allergy status to other antibiotic agents; Z88.5 Allergy status to narcotic agent; Z88.8 Allergy status to other drugs, medicaments and biological substances
CPT/HCPCS: 93005 ×2; 85025; 80048; 36415; 83735; 85610; 84484 ×2; 83880; 71045; 96375; 96374; 99285; J2405

== ENCOUNTER 2019-07-21 05:05 | Emergency (ER) | payer OTHER ==
--- OUTSIDE RECORDS SUMMARY | 2019-07-21 05:07 | XMS REPORT ---
:1955 [facility] Address [address] [place] [address] Dr. Alexis [address] [place] [id number] Care Team Providers Name Role Phone SYL [...] detected (qualifier value) Not Detected URINALYSIS WITH [id number] 10:57:00 Test Item Value Reference Range Comments Color (test code=UCOLR) Dk. Yellow Clarity (test code=UCLAR) Hazy Glucose (test code=UGLUC) NEGATIVE NEGATIVE Bilirubin (test code=UBILI) NEGATIVE NEGATIVE Ketones (test code=UKET) NEGATIVE NEGATIVE Specific [place] (test code=USPGR) 1.025 1.005-1.030 Blood (test code=UBLD) [...]
[2019-07-21] MEDS ORDERED: TRAMADOL HCL 50 MG TAB ONE (05:40)
[2019-07-21] MEDS ORDERED: IBUPROFEN 400 MG TAB ONE (05:47)
--- NOTE | 2019-07-21 06:37 | ER ---
Nurse's Notes [facility] Name: Marjan Fleming Age: 64 yrs Sex: Female : 1955 Arrival Date: 07/21/2019 Time: 05:07 Bed 20 Private MD: Diagnosis: Sprain of other ligament of left ankle Presentation: 05:16 Chief complaint: Patient states: slipped while trying to stand up. landed on left side. rv twisted left ankle. hurting the left lower leg and left shoulder. Care prior to arrival: None. Mechanism of Injury: Fall from standing position. Trauma event details: Injury occurred in the [facility], Injury occurred: at home. Injury occurred: July 21, 2019 Injury occurred at: 05:00. 05:16 Acuity: BLAYNE 4 rv 05:16 Method Of Arrival: Ambulatory rv 05:24 Coronavirus screen: The patient has NOT traveled to [place] in the past 14 days. rv Coronavirus screen: The patient has NOT had contact with known and/or suspected case of Coronavirus. Proceed with normal triage procedures. Ebola Screen: No symptoms or risks identified at this time. Initial Sepsis Screen: Does the patient meet any 2 criteria? No. Patient's initial sepsis screen is negative. Does the patient have a suspected source of infection? No. Patient's initial sepsis screen is negative. Risk Assessment: Do you want to hurt yourself or someone else? Patient reports no desire to harm self or others. 05:27 Onset of symptoms was July 21, 2019 at 05:00. rv Historical: - Allergies: 05:26 Bactrim DS; rv 05:26 Codeine; rv 05:26 Demerol; rv 05:26 metoclopramide HCl; rv 05:26 Stadol; rv - PMHx: 05:26 Anxiety; Atrial Fib; Bipolar disorder; Chronic pain; COPD; esophageal varices; rv Hepatitis; HIV; Hypertension; Migraines; Panic Attacks; - PSHx: 05:26 None; rv - Immunization history: Last tetanus immunization: unknown. - Social history:: Smoking status: Patient denies any tobacco usage or history of. Screenin:22 Abuse screen: Denies threats or abuse. Denies injuries from another. Nutritional rv screening: No deficits noted. Tuberculosis screening: No symptoms or risk factors identified. Fall Risk Fall in past 12 months (25 points). Secondary diagnosis (15 points) impaired mobility, Ambulatory Aid- Crutches/Cane/Walker (15 pts). Gait- Weak (10 pts.). Mental Status- Oriented to own ability (0 pts). Total Hauser Fall Scale indicates Low Risk Score (25-44 pts). Fall prevention measures have been instituted. Side Rails Up X 2 Placed close to Nursing Station Frequent Obs/Assesments occuring As available Patient and Family Educated on Fall Prevention Program and strategies. Primary Survey: 05:23 NO uncontrolled hemorrhage observed. Breathing/Chest: Respiratory pattern: regular. rv Circulation: Cardiac rhythm: sinus rhythm Skin color: pink. Disability Alert. Exposure/Environment: There is no evidence of uncontrolled external bleeding. No obvious injuries are noted at this time. A warming method has been applied: A warm blanket has been provided to the patient. Assessment: 05:18 General: Appears in no apparent distress. Behavior is calm, cooperative. Pain: rv Complains of pain in lateral aspect of left calf, left lateral ankle and left sanchez. Neuro: Level of Consciousness is awake, alert, obeys commands, Oriented to person, place, time, situation. EENT: No signs and/or symptoms were reported regarding the EENT system. Cardiovascular: Patient's skin is warm and dry. Respiratory: Airway is patent. Musculoskeletal: Swelling present in left lateral ankle. 06:43 Reassessment: patient opted to wait for her spouse in the waiting area. discharged rv patient via wheelchair. GCS 15. Vital Signs: 05:19 BP 136 / 84; Pulse 76; Resp 16; Temp 98.2; Pulse Ox 99% ; Weight 94.8 kg; Height 5 ft. rv 4 in. (162.56 cm); Pain 10/10; 06:41 BP 135 / 75; Pulse 70; Resp 16; Temp 98; Pulse Ox 99% ; rv 05:19 Body Mass Index 35.87 (94.80 kg, 162.56 cm) rv [place] Coma Score: 05:19 Eye Response: spontaneous(4). Verbal Response: oriented(5). Motor Response: obeys rv commands(6). Total: 15. Trauma Score (Adult): 05:19 Eye Response: spontaneous(1); Verbal Response: oriented(1); Motor Response: obeys rv commands(2); Systolic BP: > 89 mm Hg(4); Respiratory Rate: 10 to 29 per min(4); [place] Score: 15; Trauma Score: 12 ED Course: 05:07 Patient arrived in ED. ag3 05:08 Scott Yates, RN is Primary Nurse. rv 05:16 Marcos Lema MD is Attending Physician. tw4 05:18 Triage completed. rv 05:24 Arm band placed on right wrist. rv 05:24 Patient has correct armband on for positive identification. Pulse ox on. NIBP on. rv 05:24 Patient maintains SpO2 saturation greater than 95% on room air. rv 05:27 Thermoregulation: warm blanket given to patient. rv 06:04 Ankle Left 2 View XRAY In Process Unspecified. EDMS 06:41 No provider procedures requiring assistance completed. Patient did not have IV access rv during this emergency room visit. Devin wrap to left ankle. Administered Medications: 05:37 Not Given (Patient Refused): traMADol 50 mg PO once; RASS on ADMIN: Combtv4, Very rv Agttd3, Agttd2, Rstlss1, AlertClm0, Drwsy-1, Lt Sdtn-2, Mod Sdtn-3, Dp Sdtn-4, UnArsble-5 05:43 Drug: Motrin 800 mg Route: PO; rv 06:40 Follow up: Response: Pain is decreased rv Outcome: 06:35 Discharge ordered by . tw4 06:42 Discharged to home via wheelchair. rv 06:42 Condition: good 06:42 Discharge instructions given to patient, Instructed on discharge instructions, follow up and referral plans. medication usage, Demonstrated understanding of instructions, follow-up care, medications, Prescriptions given X 1. 06:44 Patient left the ED. rv Signatures: Dispatcher [employer] EDMS Marcos Lema MD MD tw4 Scott Yates, RN RN rv Ev Fields ag3
--- NOTE | 2019-07-21 06:37 | EDPHYS ---
Physician Documentation [facility] Name: Marjan Fleming Age: 64 yrs Sex: Female : 1955 Arrival Date: 07/21/2019 Time: 05:07 Bed 20 Private MD: ED Physician Marcos Lema HPI: 06:38 This 64 yrs old Female presents to ER via Ambulatory with complaints of Fall tw4 Injury, Foot Injury. 06:38 Details of fall: The patient fell from an upright position, while walking. Onset: The tw4 symptoms/episode began/occurred just prior to arrival. Associated injuries: The patient sustained left Achilles and left lateral malleolus. Severity of symptoms: At their worst the symptoms were mild, in the emergency department the symptoms are unchanged. The patient has not experienced similar symptoms in the past. Historical: - Allergies: 05:26 Bactrim DS; rv 05:26 Codeine; rv 05:26 Demerol; rv 05:26 metoclopramide HCl; rv 05:26 Stadol; rv - PMHx: 05:26 Anxiety; Atrial Fib; Bipolar disorder; Chronic pain; COPD; esophageal varices; rv Hepatitis; HIV; Hypertension; Migraines; Panic Attacks; - PSHx: 05:26 None; rv - Immunization history: Last tetanus immunization: unknown. - Social history:: Smoking status: Patient denies any tobacco usage or history of. ROS: 06:38 Constitutional: Negative for fever, chills, and weight loss, Eyes: Negative for injury, tw4 pain, redness, and discharge, Cardiovascular: Negative for chest pain, palpitations, and edema, Respiratory: Negative for shortness of breath, cough, wheezing, and pleuritic chest pain, Abdomen/GI: Negative for abdominal pain, nausea, vomiting, diarrhea, and constipation. 06:38 Skin: Negative for injury, rash, and discoloration, Neuro: Negative for headache, weakness, numbness, tingling, and seizure. 06:38 MS/extremity: Positive for injury or acute deformity, decreased range of motion, pain, tenderness. Exam: 06:38 Constitutional: This is a well developed, well nourished patient who is awake, alert, tw4 and in no acute distress. Head/Face: Normocephalic, atraumatic. Chest/axilla: Normal chest wall appearance and motion. Nontender with no deformity. No lesions are appreciated. Cardiovascular: Regular rate and rhythm with a normal S1 and S2. No gallops, murmurs, or rubs. Normal PMI, no JVD. No pulse deficits. Respiratory: Lungs have equal breath sounds bilaterally, clear to auscultation and percussion. No rales, rhonchi or wheezes noted. No increased work of breathing, no retractions or nasal flaring. Abdomen/GI: Soft, non-tender, with normal bowel sounds. No distension or tympany. No guarding or rebound. No evidence of tenderness throughout. Back: No spinal tenderness. No costovertebral tenderness. Full range of motion. 06:38 Musculoskeletal/extremity: Extremities: grossly normal except: noted in the left Achilles and left lateral malleolus: decreased ROM, pain. Vital Signs: 05:19 BP 136 / 84; Pulse 76; Resp 16; Temp 98.2; Pulse Ox 99% ; Weight 94.8 kg; Height 5 ft. rv 4 in. (162.56 cm); Pain 10/10; 06:41 BP 135 / 75; Pulse 70; Resp 16; Temp 98; Pulse Ox 99% ; rv 05:19 Body Mass Index 35.87 (94.80 kg, 162.56 cm) rv Crystal Coma Score: 05:19 Eye Response: spontaneous(4). Verbal Response: oriented(5). Motor Response: obeys rv commands(6). Total: 15. Trauma Score (Adult): 05:19 Eye Response: spontaneous(1); Verbal Response: oriented(1); Motor Response: obeys rv commands(2); Systolic BP: > 89 mm Hg(4); Respiratory Rate: 10 to 29 per min(4); Crystal Score: 15; Trauma Score: 12 MDM: 05:16 Patient medically screened. tw4 06:38 Differential diagnosis: closed head injury, contusion. Data reviewed: vital signs, tw4 nurses notes. Data reviewed: radiologic studies, plain films. Counseling: I had a detailed discussion with the patient and/or guardian regarding: the historical points, exam findings, and any diagnostic results supporting the discharge/admit diagnosis. Special discussion: I discussed with the patient/guardian in detail that at this point there is no indication for admission to the hospital. It is understood, however, that if the symptoms persist or worsen the patient needs to return immediately for re-evaluation. 05:32 Order name: Ankle Left 2 View XRAY ar5 Administered Medications: 05:37 Not Given (Patient Refused): traMADol 50 mg PO once; RASS on ADMIN: Combtv4, Very rv Agttd3, Agttd2, Rstlss1, AlertClm0, Drwsy-1, Lt Sdtn-2, Mod Sdtn-3, Dp Sdtn-4, UnArsble-5 05:43 Drug: Motrin 800 mg Route: PO; rv 06:40 Follow up: Response: Pain is decreased rv Disposition: 07/21/19 06:35 Discharged to Home. Impression: Sprain of other ligament of left ankle. - Condition is Stable. - Discharge Instructions: Ankle Sprain, Foot Sprain. - Prescriptions for Tramadol 50 mg Oral Tablet - take 1 tablet by ORAL route every 8 hours as needed; 12 tablet. - Medication Reconciliation Form, Thank You Letter, Antibiotic Education, Prescription Opioid Use form. - Follow up: Private Physician; When: Upon discharge from the Emergency Department; Reason: Recheck today's complaints, Continuance of care, Re-evaluation by your physician. - Problem is new. - Symptoms have improved. Signatures: Dispatcher [employer] Marcos Quinones MD MD tw4 Scott Yates RN RN rv Corrections: (The following items were deleted from the chart) 06:44 06:35 07/21/2019 06:35 Discharged to Home. Impression: Sprain of other ligament of left rv ankle. Condition is Stable. Forms are Medication Reconciliation Form, Thank You Letter, Antibiotic Education, Prescription Opioid Use. Follow up: Private Physician; When: Upon discharge from the Emergency Department; Reason: Recheck today's complaints, Continuance of care, Re-evaluation by your physician. Problem is new. Symptoms have improved. tw4
[2019-07-21 06:53] VITALS: O2SAT 99
[2019-07-21 06:56] VITALS: BP 135/75; TEMP 98
--- NOTE | 2019-07-21 10:28 | RAD REPORT ---
EXAM DESCRIPTION: RAD - Ankle Left 2 View - 07/21/2019 6:04 am CLINICAL HISTORY: PAIN COMPARISON: Ankle Left 3 View dated 03/31/2016 FINDINGS: Moderate soft tissue swelling is seen adjacent to the lateral malleolus. Slight bony irreg ularity is seen along the posterior margin of the distal fibula, incompletely visualized on this stud y. If the patient has localizing pain in this region, additional views such as oblique views may be o f value. No definitive fracture or dislocation evident on this limited two-view study.
== END 2019-07-21 06:44 | disposition home or self-care (01) ==
LOC: ER 05:05
DX: S93.402A Sprain of unspecified ligament of left ankle, initial encounter (principal); W01.0XXA Fall on same level from slipping, tripping and stumbling without subsequent striking against object, initial encounter; Y93.9 Activity, unspecified; Y92.9 Unspecified place or not applicable; Z88.1 Allergy status to other antibiotic agents; Z88.6 Allergy status to analgesic agent
CPT/HCPCS: 99284

== ENCOUNTER 2019-08-06 14:43 | Emergency (ER) | payer OTHER ==
--- OUTSIDE RECORDS SUMMARY | 2019-08-06 14:45 | XMS REPORT ---
:1955 [facility] Address [address] [place] [address] Dr. Alexis [address] [place] [id number] Care Team Providers Name Role Phone SYL [...] detected (qualifier value) Not Detected URINALYSIS WITH [id number] 10:57:00 Test Item Value Reference Range Comments Color (test code=UCOLR) Dk. Yellow Clarity (test code=UCLAR) Hazy Glucose (test code=UGLUC) NEGATIVE NEGATIVE Bilirubin (test code=UBILI) NEGATIVE NEGATIVE Ketones (test code=UKET) NEGATIVE NEGATIVE Specific Simpson (test code=USPGR) 1.025 1.005-1.030 Blood (test code=UBLD) [...]
[2019-08-06] MEDS ORDERED: MORPHINE 4 MG/ML SYR ONE ×2 (15:34→18:09)
[2019-08-06] MEDS ORDERED: ONDANSETRON 4 MG/2 ML VIAL ONE (15:35)
[2019-08-06 16:53] LABS: Absolute Lymphocytes (CBC) 1.7 K/uL (0.7-4.9); Basophils % 0.7 % (0-1.3); Hematocrit 35.4 % (36.0-45.0); Lymphocytes % 28.8 % (15.3-44.8); MPV 7.5 fL (7.6-11.3); RBC Red Blood Cell Count 4.34 M/uL (3.86-4.86)
--- NOTE | 2019-08-06 17:07 | RAD REPORT ---
EXAM DESCRIPTION: US - Extremity Venous Uni Ltd - 08/06/2019 4:54 pm CLINICAL HISTORY: Pain;Swelling, left COMPARISON: None. TECHNIQUE: Real-time sonographic evaluation of the left lower extremity deep venous system was perfo rmed. FINDINGS: Normal compressibility, flow augmentation, phasic flow and spontaneous flow are identified in the left lower extremity common femoral, superficial femoral, popliteal and posterior tibial vein s. No intraluminal filling defects seen. IMPRESSION: No DVT in the left lower extremity.
[2019-08-06 17:17] LABS: Albumin 3.4 g/dL (3.4-5.0); Bilirubin Direct 0.1 mg/dL (0-0.2); Bilirubin Total 0.3 mg/dL (0.2-1.0); Potassium 3.8 mmol/L (3.5-5.1); Protein, Total 7.6 g/dL (6.4-8.2)
--- NOTE | 2019-08-06 17:41 | RAD REPORT ---
EXAM DESCRIPTION: RAD - Chest Pa And Lat (2 Views) - 08/06/2019 5:25 pm CLINICAL HISTORY: COUGH COMPARISON: Portable July 17 TECHNIQUE: Frontal and lateral views of the chest were obtained. FINDINGS: The lungs are underinflated. Large body habitus and portable technique further contribute to limited assessment. No significant infiltrative process seen. Failure and volume overload are doub tful. Moderate-size hiatal hernia is seen. Heart size is normal and central vasculature is within no rmal limits. No pleural effusion or pneumothorax seen. No acute bony finding noted. No aortic abno rmality. IMPRESSION: Exam is substantially limited. Acute cardiopulmonary finding not identified.
--- NOTE | 2019-08-06 17:45 | RAD REPORT ---
EXAM DESCRIPTION: RAD - Ankle Left 3 View - 08/06/2019 5:29 pm CLINICAL HISTORY: Pain;Swelling, persistent ankle pain following injury 3 weeks earlier COMPARISON: Ankle Left 2 View dated 07/21/2019 FINDINGS: Subacute distal fibula shaft fracture is present. Callus formation is present. No signific ant distraction or angulation deformity. Degenerative changes are present in the distal fibula. No ad ditional ankle fracture findings. Degenerative calcifications are present along the medial malleolus. No joint effusion seen. No joint space narrowing. Significant soft tissue swelling seen around the a nkle joint. IMPRESSION: Subacute distal fibula shaft fracture without distraction or angulation. Early callus fo rmation seen.
--- NOTE | 2019-08-06 18:01 | RAD REPORT ---
EXAM DESCRIPTION: CT - Abdomen Pelvis W Contrast - 08/06/2019 5:52 pm CLINICAL HISTORY: ABD PAIN COMPARISON: Abdomen Pelvis W Contrast dated 07/01/2017 TECHNIQUE: Biphasic, helical CT imaging of the abdomen and pelvis was performed following 100 ml non -ionic IV contrast. No oral contrast given. All CT scans are performed using dose optimization technique as appropriate and may include automated exposure control or mA/KV adjustment according to patient size. FINDINGS: No suspicious findings in the lung bases. The liver, spleen, and pancreas show no suspicious findings. Liver is borderline fatty infiltrated. C holecystectomy clips are present. No biliary tree dilatation. Symmetric renal function is seen with no hydronephrosis or suspicious renal mass. No pyelonephritis o r acute parenchymal process. Patient has multiple bilateral renal cysts not clearly different from pr ior imaging. No adrenal abnormalities. Contracted urinary bladder shows no suspicious finding. Atroph ic uterus is present. No ovarian abnormality. No dilated bowel loops or bowel wall thickening. The appendix is not identified and may be absent. No appendicitis findings. No active GI process seen. No free air, free fluid or inflammatory stranding. No hernia, mass or bulky lymphadenopathy. No suspicious bony findings. IMPRESSION: Contrast enhanced CT abdomen and pelvis showing no acute finding. Liver is borderline fatty infiltrated.
--- NOTE | 2019-08-06 18:12 | EDPHYS ---
Physician Documentation [facility] Name: Marjan Fleming Age: 64 yrs Sex: Female : 1955 Arrival Date: 08/06/2019 Time: 14:48 Bed 25 Private MD: ED Physician Raomn Baker HPI: 08/05 15:45 This 64 yrs old Female presents to ER via Ambulatory with complaints of pm1 Abdominal Pain, Cough, Ankle Injury. 15:45 The patient presents with abdominal pain in the lower abdomen. Onset: The pm1 symptoms/episode began/occurred 2 day(s) ago. The symptoms do not radiate. Associated signs and symptoms: Pertinent positives: nausea, vomiting, and diarrhea, Cough that has improved, Pertinent negatives: dysuria, fever. The symptoms are described as achy. Modifying factors: The symptoms are alleviated by nothing, the symptoms are aggravated by nothing. Patient presenting to the ER with multiple complaints. Has had vomiting and diarrhea since Tuesday with lower abdominal pain. Patient is concerned that she might be dehydrated. Has had a cough which has improved for the past 3 days. No chest pain. Reports some shortness of breath. Patient with continued ankle pain since when she sprained her ankle. Historical: - Allergies: 14:53 Bactrim DS; iw 14:53 Codeine; iw 14:53 Demerol; iw 14:53 metoclopramide HCl; iw 14:53 Stadol; iw - Home Meds: 14:53 BuSpar 10 mg BID Oral [Active]; Descovy 200-25 mg Oral tab 1 tab once daily [Active]; iw Hydralazine Oral [Active]; lisinopril 40 mg Oral tab 1 tab twice a day [Active]; Metformin Oral [Active]; metoprolol tartrate 100 mg Oral tab 1 tab 2 times per day [Active]; Norvasc Oral [Active]; raltegravir Oral 1 tab 2 times per day [Active]; sertraline Oral [Active]; - PMHx: 14:53 Anxiety; Atrial Fib; Bipolar disorder; Chronic pain; COPD; esophageal varices; iw Hepatitis; HIV; Hypertension; Migraines; Panic Attacks; - Immunization history:: Adult Immunizations not up to date. - Social history:: Smoking status: Patient/guardian denies using tobacco, Stopped _ months ago 4. ROS: 15:45 Constitutional: Negative for fever, chills, and weight loss, ENT: Negative for injury, pm1 pain, and discharge, Cardiovascular: Negative for chest pain, palpitations, and edema. 15:45 Back: Negative for injury and pain, : Negative for injury, bleeding, discharge, and swelling. 15:45 Skin: Negative for injury, rash, and discoloration, Neuro: Negative for headache, weakness, numbness, tingling, and seizure. 15:45 Respiratory: Positive for cough, with no reported sputum, shortness of breath, Negative for sputum production, wheezing. 15:45 Abdomen/GI: Positive for abdominal pain, nausea, vomiting, and diarrhea, Negative for constipation. 15:45 MS/extremity: Positive for pain, swelling, tenderness, of the left ankle, Negative for paresthesias. Exam: 15:45 Constitutional: This is a well developed, well nourished patient who is awake, alert, pm1 and in no acute distress. Head/Face: Normocephalic, atraumatic. Neck: Trachea midline, no thyromegaly or masses palpated, and no cervical lymphadenopathy. Supple, full range of motion without nuchal rigidity, or vertebral point tenderness. No Meningismus. Chest/axilla: Normal chest wall appearance and motion. Nontender with no deformity. No lesions are appreciated. Cardiovascular: Regular rate and rhythm with a normal S1 and S2. No gallops, murmurs, or rubs. Normal PMI, no JVD. No pulse deficits. Respiratory: Lungs have equal breath sounds bilaterally, clear to auscultation and percussion. No rales, rhonchi or wheezes noted. No increased work of breathing, no retractions or nasal flaring. Abdomen/GI: Soft, non-tender, with normal bowel sounds. No distension or tympany. No guarding or rebound. No evidence of tenderness throughout. Back: No spinal tenderness. No costovertebral tenderness. Full range of motion. Skin: Warm, dry with normal turgor. Normal color with no rashes, no lesions, and no evidence of cellulitis. 15:45 Musculoskeletal/extremity: Extremities: grossly normal except: noted in the left ankle: swelling, tenderness, Calves: are tender, on left, swelling. 15:45 Neuro: Orientation: is normal, Motor: is normal, moves all fours. Vital Signs: 14:53 BP 154 / 80; Pulse 63; Resp 18; Temp 98.1; Pulse Ox 95% on R/A; Weight 95.25 kg; Height iw 5 ft. 4 in. (162.56 cm); Pain 10/10; 18:10 BP 118 / 87; Pulse 55; Resp 16; Pulse Ox 96% on R/A; Pain 8/10; ls4 14:53 Body Mass Index 36.05 (95.25 kg, 162.56 cm) iw Procedures: 19:24 Splinting: Splint applied to left leg using walking boot. applied by tech. Patient pm1 tolerated well. MDM: 15:11 Patient medically screened. pm1 15:58 Data reviewed: vital signs. Data interpreted: Pulse oximetry: on room air is 95 %. pm1 Interpretation: normal. 18:07 Counseling: I had a detailed discussion with the patient and/or guardian regarding: the pm1 historical points, exam findings, and any diagnostic results supporting the discharge/admit diagnosis, lab results, radiology results, the need for outpatient follow up, a orthopedic surgeon, to return to the emergency department if symptoms worsen or persist or if there are any questions or concerns that arise at home. 18:18 ED course: [employer] reviewed Patient with tramadol prescription on 07/22/2019. Patient with pm1 subacute fracture, will discharge the patient home with tramadol for follow up with orthopedics. 18:32 ED course: Patient with bilateral shoulder replacements and has decreased range of pm1 motion and with decreased strength bilaterally. She reports weakness and decreased ROM due to lack of compliance with rehabilitation. She just went to two rehabilitation sessions. Patient does not feel that she would be able to use a walker or crutches if we splint her. Therefore best option at the moment is walking boot with a walker until follow up with orthopedics for definitive care. 08/05 15:23 Order name: Flu; Complete Time: 16:01 pm1 08/05 15:23 Order name: Strep; Complete Time: 16:01 pm1 08/05 15:23 Order name: Basic Metabolic Panel; Complete Time: 17:24 pm1 08/05 15:23 Order name: CBC with Diff; Complete Time: 17:06 pm1 08/05 15:23 Order name: Creatinine for Radiology; Complete Time: 17:06 pm1 08/05 15:23 Order name: Hepatic Function; Complete Time: 17:24 pm1 08/05 15:23 Order name: Ankle Left 3 View XRAY; Complete Time: 17:58 pm1 08/05 15:23 Order name: Extremity Venous Uni Ltd US; Complete Time: 17:24 pm1 08/05 15:23 Order name: Lipase; Complete Time: 17:24 pm1 08/05 15:23 Order name: Chest Pa And Lat (2 Views) XRAY; Complete Time: 17:58 pm1 08/05 15:23 Order name: CT Abd/Pelvis - IV Contrast Only; Complete Time: 18:07 pm1 08/05 16:02 Order name: Throat Culture EDMS 08/05 15:23 Order name: IV Saline Lock; Complete Time: 16:38 pm1 08/05 15:23 Order name: Labs collected and sent; Complete Time: 16:39 pm1 08/05 18:32 Order name: Walking boot; Complete Time: 18:53 pm1 Administered Medications: 16:30 Drug: morphine 4 mg Route: IVP; Site: right hand; dw 17:00 Follow up: Response: No adverse reaction; Marked relief of symptoms ls4 16:30 Drug: Zofran (Ondansetron) 4 mg Route: IVP; Site: right hand; dw 17:00 Follow up: Response: No adverse reaction; Marked relief of symptoms ls4 18:08 Drug: morphine 4 mg Route: IVP; Site: right forearm; ls4 18:30 Follow up: Response: No adverse reaction; Marked relief of symptoms ls4 Disposition: 08/06 07:16 Co-signature as Attending Physician, Ramon Baker MD. rn Disposition: 08/06/19 18:11 Discharged to Home. Impression: Closed left distal fibula fracture, Unspecified abdominal pain, Acute upper respiratory infection, unspecified, Vomiting, Diarrhea, unspecified. - Condition is Stable. - Discharge Instructions: Abdominal Pain, Adult, Diarrhea, Adult, Nausea and Vomiting, Adult, Upper Respiratory Infection, Adult, [id number], Fibular Fracture, Pediatric. - Prescriptions for Tramadol 50 mg Oral Tablet - take 1 tablet by ORAL route every 8 hours As needed as needed; 20 tablet. Zofran 4 mg Oral Tablet - take 1 tablet by ORAL route every 12 hours As needed; 20 tablet. - Medication Reconciliation Form, Thank You Letter, Antibiotic Education, Prescription Opioid Use form. - Follow up: Emergency Department; When: As needed; Reason: Worsening of condition. Follow up: Private Physician; When: 2 - 3 days; Reason: Recheck today's complaints, Continuance of care, Re-evaluation by your physician. Follow up: aSmson Garcia MD; When: 2 - 3 days; Reason: Recheck today's complaints, Continuance of care, Re-evaluation by your physician. - Problem is new. - Symptoms have improved. Signatures: Dispatcher [employer] EDMS Mary Hernandez, RN Jacquelin Robles RN RN iw Nieto, Roman, MD MD rn Marinas, Patrick, [employer] pm1 Shimon Ruiz mw2 Marjan Zamudio RN RN ls4 Corrections: (The following items were deleted from the chart) 08/05 18:11 18:11 08/06/2019 18:11 Discharged to Home. Impression: Closed left distal fibula pm1 fractureUnspecified abdominal pain; Acute upper respiratory infection, unspecified; Vomiting; Diarrhea, unspecified. Condition is Stable. Forms are Medication Reconciliation Form, Thank You Letter, Antibiotic Education, Prescription Opioid Use. pm1 20:13 18:11 08/06/2019 18:11 Discharged to Home. Impression: Closed left distal fibula mw2 fractureUnspecified abdominal pain; Acute upper respiratory infection, unspecified; Vomiting; Diarrhea, unspecified. Condition is Stable. Forms are Medication Reconciliation Form, Thank You Letter, Antibiotic Education, Prescription Opioid Use. Follow up: Emergency Department; When: As needed; Reason: Worsening of condition. Follow up: Private Physician; When: 2 - 3 days; Reason: Recheck today's complaints, Continuance of care, Re-evaluation by your physician. Follow up: Samson Garcia; When: 2 - 3 days; Reason: Recheck today's complaints, Continuance of care, Re-evaluation by your physician. Problem is new. Symptoms have improved. pm1
--- NOTE | 2019-08-06 18:12 | ER ---
Nurse's Notes [facility] Name: Marjan Fleming Age: 64 yrs Sex: Female : 1955 Arrival Date: 08/06/2019 Time: 14:48 Bed 25 Private MD: Diagnosis: Unspecified abdominal pain;Acute upper respiratory infection, unspecified;Closed left distal fibula fracture;Vomiting;Diarrhea, unspecified Presentation: 08/05 14:54 Chief complaint: Patient states: sprained left foot 3 weeks ago, not getting better, iw now more swollen and painful , is also SOB and weak and has been sick to stomach, + vomiting last night. Coronavirus screen: The patient has NOT traveled to a country currently being monitored by the [facility] within the last 14 days. Proceed with normal triage procedures. The patient has NOT had contact with any known and/or suspected case of coronavirus. Proceed with normal triage procedures. Ebola Screen: Patient negative for fever greater than or equal to 101.5 degrees Fahrenheit, and additional compatible Ebola Virus Disease symptoms Patient denies exposure to infectious person. Patient denies travel to an Ebola-affected area in the 21 days before illness onset. No symptoms or risks identified at this time. Initial Sepsis Screen: Does the patient meet any 2 criteria? No. Patient's initial sepsis screen is negative. Does the patient have a suspected source of infection? No. Patient's initial sepsis screen is negative. Risk Assessment: Do you want to hurt yourself or someone else? Patient reports no desire to harm self or others. 14:54 Method Of Arrival: Ambulatory iw 14:54 Acuity: BLAYNE 3 iw 15:09 Onset of symptoms was August 04, 2019. dw Triage Assessment: 15:03 General: Appears in no apparent distress. uncomfortable, Behavior is calm, cooperative. dw Pain: Complains of pain in left foot. Historical: - Allergies: 14:53 Bactrim DS; iw 14:53 Codeine; iw 14:53 Demerol; iw 14:53 metoclopramide HCl; iw 14:53 Stadol; iw - Home Meds: 14:53 BuSpar 10 mg BID Oral [Active]; Descovy 200-25 mg Oral tab 1 tab once daily [Active]; iw Hydralazine Oral [Active]; lisinopril 40 mg Oral tab 1 tab twice a day [Active]; Metformin Oral [Active]; metoprolol tartrate 100 mg Oral tab 1 tab 2 times per day [Active]; Norvasc Oral [Active]; raltegravir Oral 1 tab 2 times per day [Active]; sertraline Oral [Active]; - PMHx: 14:53 Anxiety; Atrial Fib; Bipolar disorder; Chronic pain; COPD; esophageal varices; iw Hepatitis; HIV; Hypertension; Migraines; Panic Attacks; - Immunization history:: Adult Immunizations not up to date. - Social history:: Smoking status: Patient/guardian denies using tobacco, Stopped _ months ago 4. Screenin:01 Abuse screen: Denies threats or abuse. Nutritional screening: No deficits noted. dw Tuberculosis screening: No symptoms or risk factors identified. Fall Risk None identified. Assessment: 15:07 GI: Bowel sounds present X 4 quads. Reports diarrhea, nausea, vomiting. dw 15:15 GI: Abd is soft and non tender X 4 quads. dw 16:40 Reassessment: Patient appears in no apparent distress at this time. No changes from previously documented assessment. 18:10 Reassessment: Patient appears in no apparent distress at this time. Patient and/or ls4 family updated on plan of care and expected duration. Pain level reassessed. Patient is alert, oriented x 3, equal unlabored respirations, skin warm/dry/pink. Vital Signs: 14:53 BP 154 / 80; Pulse 63; Resp 18; Temp 98.1; Pulse Ox 95% on R/A; Weight 95.25 kg; Height iw 5 ft. 4 in. (162.56 cm); Pain 10/10; 18:10 BP 118 / 87; Pulse 55; Resp 16; Pulse Ox 96% on R/A; Pain 8/10; ls4 14:53 Body Mass Index 36.05 (95.25 kg, 162.56 cm) ED Course: 14:48 Patient arrived in ED. ag5 14:53 Arm band placed on. iw 14:55 Triage completed. iw 15:00 Mary Hernandez, RN is Primary Nurse. dw 15:01 Patient has correct armband on for positive identification. Bed in low position. Call light in reach. Side rails up X 1. Pulse ox on. NIBP on. Door closed. Noise minimized. Visitors limited. 15:08 [facility] pm1 15:10 Ramon Baker MD is Attending Physician. pm1 15:59 Flu Sent. dw 16:00 Strep Sent. dw 16:17 Radiology exam delayed due to lab results not completed at this time. (BUN/Creatinine). vm2 16:36 Throat Culture Sent. dw 16:39 Extremity Venous Uni Ltd US Sent. dw 16:40 Inserted saline lock: 22 gauge in right hand, using aseptic technique. Blood collected. dw 16:45 Initial lab(s) drawn, by az, sent to lab. Inserted saline lock: 24 gauge in right iw forearm, using aseptic technique. Blood collected. 16:54 Extremity Venous Uni Ltd US In Process Unspecified. EDMS 17:05 Radiology exam delayed due to lab results not completed at this time. (BUN/Creatinine). vm2 17:26 Ankle Left 3 View XRAY In Process Unspecified. EDMS 17:26 Chest Pa And Lat (2 Views) XRAY In Process Unspecified. EDMS 17:53 CT Abd/Pelvis - IV Contrast Only In Process Unspecified. EDMS 18:11 Samson Garcia MD is Referral Physician. pm1 19:25 IV discontinued, intact, bleeding controlled, Pressure dressing applied. lc1 Administered Medications: 16:30 Drug: morphine 4 mg Route: IVP; Site: right hand; dw 17:00 Follow up: Response: No adverse reaction; Marked relief of symptoms ls4 16:30 Drug: Zofran (Ondansetron) 4 mg Route: IVP; Site: right hand; dw 17:00 Follow up: Response: No adverse reaction; Marked relief of symptoms ls4 18:08 Drug: morphine 4 mg Route: IVP; Site: right forearm; ls4 18:30 Follow up: Response: No adverse reaction; Marked relief of symptoms ls4 Outcome: 16:42 Condition: good dw 18:11 Discharge ordered by . pm1 20:13 Patient left the ED. mw2 Signatures: Dispatcher [employer] EDMS Mary Hernandez RN ASHLEY Jacquelin Meier RN RN Marjan Berger 1 Austin Raza NP [employer]ENTICE [employer] pm1 Renae Camarillo 2 Shimon Ruiz 2 Marjan Zamudio RN RN 4 Mary Urbina 5 Corrections: (The following items were deleted from the chart) 14:56 14:53 BP 154 / 80; Pulse 63bpm; Resp 18bpm; Pulse Ox 95% RA; Temp 98.1F; iw iw
[2019-08-06 20:49] VITALS: TEMP 98.1
[2019-08-06 20:51] VITALS: BP 118/87; O2SAT 96
== END 2019-08-06 20:13 | disposition home or self-care (01) ==
LOC: ER 14:43
DX: S82.832A Other fracture of upper and lower end of left fibula, initial encounter for closed fracture (principal); R19.7 Diarrhea, unspecified; R11.10 Vomiting, unspecified; J06.9 Acute upper respiratory infection, unspecified; I10 Essential (primary) hypertension; I48.91 Unspecified atrial fibrillation; F31.9 Bipolar disorder, unspecified; Z21 Asymptomatic human immunodeficiency virus [HIV] infection status; Z88.1 Allergy status to other antibiotic agents; Z88.5 Allergy status to narcotic agent; Z88.8 Allergy status to other drugs, medicaments and biological substances
CPT/HCPCS: 87070; 85025; 80048; 36415; 80076; 87081; 83690; 87804 ×2; 74177; 71046; 73610; 93971; 99284; Q9967; J2405; 96374; 96375

== ENCOUNTER 2019-08-09 11:34 | Emergency (ER) | payer OTHER ==
--- OUTSIDE RECORDS SUMMARY | 2019-08-09 11:37 | XMS REPORT ---
:1955 [facility] Address [address] [place] [address] Dr. Alexis [address] [place] [id number] Care Team Providers Name Role Phone SYL [...] detected (qualifier value) Not Detected URINALYSIS WITH [id number] 10:57:00 Test Item Value Reference Range Comments Color (test code=UCOLR) Dk. Yellow Clarity (test code=UCLAR) Hazy Glucose (test code=UGLUC) NEGATIVE NEGATIVE Bilirubin (test code=UBILI) NEGATIVE NEGATIVE Ketones (test code=UKET) NEGATIVE NEGATIVE Specific Speed (test code=USPGR) 1.025 1.005-1.030 Blood (test code=UBLD) [...]
--- NOTE | 2019-08-09 12:43 | ER ---
Nurse's Notes [facility] Name: Marjan Fleming Age: 64 yrs Sex: Female : 1955 Arrival Date: 08/09/2019 Time: 11:38 Bed 6 Private MD: Lele Rahman H Diagnosis: Pain in left leg Presentation: 08/08 12:16 Chief complaint: Patient states: Was here a few days ago, dx with broken left ankle, jl7 took off the walking boot yesterday and did a bunch of stuff without it then last night the swelling and pain got worse. Coronavirus screen: The patient has NOT traveled to a country currently being monitored by the [facility] within the last 14 days. Proceed with normal triage procedures. Ebola Screen: No symptoms or risks identified at this time. Initial Sepsis Screen: Does the patient meet any 2 criteria? No. Patient's initial sepsis screen is negative. Does the patient have a suspected source of infection? No. Patient's initial sepsis screen is negative. Risk Assessment: Do you want to hurt yourself or someone else? Patient reports no desire to harm self or others. Onset of symptoms is unknown. 12:16 Method Of Arrival: Ambulatory 7 12:16 Acuity: BLAYNE 4 jl7 Triage Assessment: 12:19 General: Appears in no apparent distress. uncomfortable, Behavior is cooperative. Pain: jl7 Complains of pain in left lateral ankle Pain currently is 10 out of 10 on a pain scale. Neuro: Level of Consciousness is awake, alert, obeys commands, Oriented to person, place, time, situation. Cardiovascular: Patient's skin is warm and dry. Respiratory: Airway is patent Respiratory effort is even, unlabored, Respiratory pattern is regular, symmetrical. Derm: Skin is pink, warm \T\ dry. Musculoskeletal: Reports pain in left ankle. Historical: - Allergies: 12:19 Bactrim DS; jl7 12:19 Codeine; jl7 12:19 Demerol; jl7 12:19 metoclopramide HCl; jl7 12:19 Stadol; jl7 - Home Meds: 12:19 BuSpar 10 mg BID Oral [Active]; Descovy 200-25 mg Oral tab 1 tab once daily [Active]; jl7 Hydralazine Oral [Active]; lisinopril 40 mg Oral tab 1 tab twice a day [Active]; Metformin Oral [Active]; metoprolol tartrate 100 mg Oral tab 1 tab 2 times per day [Active]; Norvasc Oral [Active]; raltegravir Oral 1 tab 2 times per day [Active]; sertraline Oral [Active]; - PMHx: 12:19 Anxiety; Atrial Fib; Bipolar disorder; Chronic pain; COPD; esophageal varices; jl7 Hepatitis; HIV; Hypertension; Migraines; Panic Attacks; - Immunization history:: Adult Immunizations unknown. - Social history:: Smoking status: Patient denies any tobacco usage or history of. Screenin:20 Abuse screen: Denies threats or abuse. Denies injuries from another. Nutritional jl7 screening: No deficits noted. Tuberculosis screening: No symptoms or risk factors identified. Fall Risk Ambulatory Aid- Crutches/Cane/Walker (15 pts). Gait- Impaired (20 pts.). Total Hauser Fall Scale indicates Low Risk Score (25-44 pts). Fall prevention measures have been instituted. Side Rails Up X 2 1:1 attendant Assigned to Pt. Frequent Obs/Assesments occuring As available Patient and Family Educated on Fall Prevention Program and strategies. Assessment: 12:20 General: See triage assessment. jl7 Vital Signs: 12:16 BP 156 / 79; Pulse 70; Resp 17; Temp 98.2; Pulse Ox 97% ; Weight 95.25 kg; Height 5 ft. jl7 4 in. (162.56 cm); Pain 10/10; 12:16 Body Mass Index 36.05 (95.25 kg, 162.56 cm) jl7 ED Course: 11:38 Patient arrived in ED. mr 11:39 Lele Rahman DO is Private Physician. mr 12:05 Jesica Ramos, ASHLEY is Primary Nurse. jl7 12:17 Triage completed. jl7 12:19 Arm band placed on right wrist. jl7 12:20 Patient has correct armband on for positive identification. Bed in low position. Call jl7 light in reach. Side rails up X 1. Pulse ox on. NIBP on. Warm blanket given. 12:23 Rosemary Cespedes FNP-C is PHCP. kb 12:23 Klever Perez MD is Attending Physician. kb 12:58 No provider procedures requiring assistance completed. Patient did not have IV access jl7 during this emergency room visit. Administered Medications: 12:58 Not Given (Patient Refused): TORadol 30 mg IM once jl7 Outcome: 12:42 Discharge ordered by . claudia 12:58 Discharged to home ambulatory. jl7 12:58 Condition: stable 12:58 Discharge instructions given to patient, Instructed on discharge instructions, follow up and referral plans. Demonstrated understanding of instructions, follow-up care. 12:58 Patient left the ED. jl7 Signatures: Rosemary Cespedes, PARIS SALGUERO-Jessie Leija Jahala, RN RN jl7
--- NOTE | 2019-08-09 12:43 | EDPHYS ---
Physician Documentation [facility] Name: Marjan Fleming Age: 64 yrs Sex: Female : 1955 Arrival Date: 08/09/2019 Time: 11:38 Bed 6 Private MD: Lele Rahman H ED Physician Klever Perez HPI: 08/08 12:34 This 64 yrs old Female presents to ER via Ambulatory with complaints of Leg kb Pain, Ankle Injury. 12:34 The patient presents with an injury, pain, that is acute, swelling, tenderness. The kb complaints affect the left lateral ankle. Context: The problem was sustained at home, resulted from known fracture, the patient can fully bear weight, the patient is able to ambulate. Onset: The symptoms/episode began/occurred today. Modifying factors: The symptoms are alleviated by nothing. the symptoms are aggravated by movement, weight bearing. Associated signs and symptoms: Pertinent positives: swelling, Pertinent negatives calf tenderness, fever, nausea, numbness, rash, tingling, vomiting, warmth, weakness. Treatment prior to arrival includes: no previous treatment. Severity of symptoms: At their worst the symptoms were moderate, in the emergency department the symptoms are unchanged. The patient has not experienced similar symptoms in the past. The patient has been recently seen at the [facility] Emergency Department. pt reports she has a fracture and was told to wear the walking boot at all times, but she took it off and was walking around normally for a day and a half so now it is swollen and hurts. . Historical: - Allergies: 12:19 Bactrim DS; jl7 12:19 Codeine; jl7 12:19 Demerol; jl 12:19 metoclopramide HCl; jl 12:19 Stadol; jl7 - Home Meds: 12:19 BuSpar 10 mg BID Oral [Active]; Descovy 200-25 mg Oral tab 1 tab once daily [Active]; jl7 Hydralazine Oral [Active]; lisinopril 40 mg Oral tab 1 tab twice a day [Active]; Metformin Oral [Active]; metoprolol tartrate 100 mg Oral tab 1 tab 2 times per day [Active]; Norvasc Oral [Active]; raltegravir Oral 1 tab 2 times per day [Active]; sertraline Oral [Active]; - PMHx: 12:19 Anxiety; Atrial Fib; Bipolar disorder; Chronic pain; COPD; esophageal varices; jl7 Hepatitis; HIV; Hypertension; Migraines; Panic Attacks; - Immunization history:: Adult Immunizations unknown. - Social history:: Smoking status: Patient denies any tobacco usage or history of. ROS: 12:33 Constitutional: Negative for fever, chills, and weight loss, Neck: Negative for injury, kb pain, and swelling, Cardiovascular: Negative for chest pain, palpitations, and edema, Respiratory: Negative for shortness of breath, cough, wheezing, and pleuritic chest pain, Abdomen/GI: Negative for abdominal pain, nausea, vomiting, diarrhea, and constipation, Back: Negative for injury and pain, Skin: Negative for injury, rash, and discoloration, Neuro: Negative for headache, weakness, numbness, tingling, and seizure. 12:33 MS/extremity: Positive for pain, swelling, tenderness, of the left lateral ankle. Exam: 12:33 Constitutional: This is a well developed, well nourished patient who is awake, alert, kb and in no acute distress. Head/Face: Normocephalic, atraumatic. Neck: Trachea midline, no thyromegaly or masses palpated, and no cervical lymphadenopathy. Supple, full range of motion without nuchal rigidity, or vertebral point tenderness. No Meningismus. Chest/axilla: Normal chest wall appearance and motion. Nontender with no deformity. No lesions are appreciated. Cardiovascular: Regular rate and rhythm with a normal S1 and S2. No gallops, murmurs, or rubs. Normal PMI, no JVD. No pulse deficits. Respiratory: Lungs have equal breath sounds bilaterally, clear to auscultation and percussion. No rales, rhonchi or wheezes noted. No increased work of breathing, no retractions or nasal flaring. Abdomen/GI: Soft, non-tender, with normal bowel sounds. No distension or tympany. No guarding or rebound. No evidence of tenderness throughout. Skin: Warm, dry with normal turgor. Normal color with no rashes, no lesions, and no evidence of cellulitis. Neuro: Awake and alert, GCS 15, oriented to person, place, time, and situation. Cranial nerves II-XII grossly intact. Motor strength 5/5 in all extremities. Sensory grossly intact. Cerebellar exam normal. Normal gait. 12:33 Musculoskeletal/extremity: Extremities: grossly normal except: noted in the left lateral ankle: pain, swelling, tenderness, ROM: limited active range of motion due to pain, in the left lateral ankle, Circulation is intact in all extremities. Sensation intact. Vital Signs: 12:16 BP 156 / 79; Pulse 70; Resp 17; Temp 98.2; Pulse Ox 97% ; Weight 95.25 kg; Height 5 ft. jl7 4 in. (162.56 cm); Pain 10/10; 12:16 Body Mass Index 36.05 (95.25 kg, 162.56 cm) jl7 MDM: 12:23 Patient medically screened. kb 12:32 Data reviewed: vital signs, nurses notes. Data interpreted: Pulse oximetry: on room air kb is 97 %. Interpretation: normal. Counseling: I had a detailed discussion with the patient and/or guardian regarding: the historical points, exam findings, and any diagnostic results supporting the discharge/admit diagnosis, the need for outpatient follow up, a orthopedic surgeon, to return to the emergency department if symptoms worsen or persist or if there are any questions or concerns that arise at home. 12:39 Data reviewed: old medical records, previous x-ray shows nondisplaced fibula fracture. kb Administered Medications: 12:58 Not Given (Patient Refused): TORadol 30 mg IM once jl7 Disposition: 18:29 Co-signature as Attending Physician, Klever Perez MD Signature for administrative ps1 purposes. Did not see or evaluate patient. . Disposition: 08/09/19 12:42 Discharged to Home. Impression: Pain in left leg. - Condition is Stable. - Discharge Instructions: Ankle Fracture, [id number]. - Medication Reconciliation Form, Thank You Letter, Antibiotic Education, Prescription Opioid Use form. - Follow up: Emergency Department; When: As needed; Reason: Worsening of condition. Follow up: Private Physician; When: 2 - 3 days; Reason: Recheck today's complaints, Continuance of care, Re-evaluation by your physician. Signatures: Rosemary Cespedes, FELICITYC JOSE M-Jesica Lloyd RN RN jlKlever Bernard MD MD ps1 Corrections: (The following items were deleted from the chart) 12:58 12:42 08/09/2019 12:42 Discharged to Home. Impression: Pain in left leg. Condition is jl7 Stable. Forms are Medication Reconciliation Form, Thank You Letter, Antibiotic Education, Prescription Opioid Use. Follow up: Emergency Department; When: As needed; Reason: Worsening of condition. Follow up: Private Physician; When: 2 - 3 days; Reason: Recheck today's complaints, Continuance of care, Re-evaluation by your physician. kb
[2019-08-09] MEDS ORDERED: KETOROLAC 30 MG/ML INJ ONE (12:56)
[2019-08-09 13:04] VITALS: BP 156/79; TEMP 98.2; O2SAT 97
== END 2019-08-09 12:58 | disposition home or self-care (01) ==
LOC: ER 11:34
DX: M79.605 Pain in left leg (principal); Z88.6 Allergy status to analgesic agent; Z88.1 Allergy status to other antibiotic agents; I10 Essential (primary) hypertension; B20 Human immunodeficiency virus [HIV] disease
CPT/HCPCS: 99283

== ENCOUNTER 2019-08-20 12:16 | Emergency (ER) | payer OTHER ==
--- OUTSIDE RECORDS SUMMARY | 2019-08-20 12:17 | XMS REPORT ---
:1955 [facility] Address [address] [place] [address] Dr. Alexis [address] [place] [id number] Care Team Providers Name Role Phone SYL [...] detected (qualifier value) Not Detected URINALYSIS WITH [id number] 10:57:00 Test Item Value Reference Range Comments Color (test code=UCOLR) Dk. Yellow Clarity (test code=UCLAR) Hazy Glucose (test code=UGLUC) NEGATIVE NEGATIVE Bilirubin (test code=UBILI) NEGATIVE NEGATIVE Ketones (test code=UKET) NEGATIVE NEGATIVE Specific [place] (test code=USPGR) 1.025 1.005-1.030 Blood (test code=UBLD) [...]
--- NOTE | 2019-08-20 12:47 | EDPHYS ---
Physician Documentation [facility] Name: Marjan Fleming Age: 64 yrs Sex: Female : 1955 Arrival Date: 08/20/2019 Time: 12:18 Bed 12 Private MD: ED Physician Liz Otoole HPI: 08/19 12:47 This 64 yrs old Female presents to ER via Ambulatory with complaints of Rash. pm1 12:47 The patient's rash thought to be caused by an unknown cause. The rash is located on the pm1 body diffusely. The rash can be described as raised. Onset: The symptoms/episode began/occurred 1 week(s) ago. Associated signs and symptoms: Pertinent positives: itching, Pertinent negatives: difficulty breathing, fever, swelling of lips, swelling of throat, swelling of tongue. Severity of symptoms: in the emergency department the symptoms are worse. Saw orthopedics for left distal fibula fracture. Patient reports raised red patches to her back, arms and legs for the past 1 week that are itchy. Patient's only known new change is Tempurpedic bed. Historical: - Allergies: 12:34 Bactrim DS; jl7 12:34 Codeine; jl7 12:34 Demerol; jl7 12:34 metoclopramide HCl; jl7 12:34 Stadol; jl7 - Home Meds: 12:34 Descovy 200-25 mg Oral tab 1 tab once daily [Active]; jl7 - PMHx: 12:34 Anxiety; Atrial Fib; Bipolar disorder; Chronic pain; COPD; esophageal varices; jl7 Hepatitis; HIV; Hypertension; Migraines; Panic Attacks; - Immunization history:: Adult Immunizations unknown. - Social history:: Smoking status: Patient denies any tobacco usage or history of. ROS: 12:47 Constitutional: Negative for fever, chills, and weight loss, Cardiovascular: Negative pm1 for chest pain, palpitations, and edema, Respiratory: Negative for shortness of breath, cough, wheezing, and pleuritic chest pain, Abdomen/GI: Negative for abdominal pain, nausea, vomiting, diarrhea, and constipation, Back: Negative for injury and pain, MS/Extremity: Negative for injury and deformity. 12:47 Skin: Positive for rash, diffusely. 12:47 All other systems are negative. Exam: 12:47 Constitutional: This is a well developed, well nourished patient who is awake, alert, pm1 and in no acute distress. Head/Face: Normocephalic, atraumatic. Chest/axilla: Normal chest wall appearance and motion. Nontender with no deformity. No lesions are appreciated. Cardiovascular: Regular rate and rhythm with a normal S1 and S2. No gallops, murmurs, or rubs. Normal PMI, no JVD. No pulse deficits. Respiratory: Lungs have equal breath sounds bilaterally, clear to auscultation and percussion. No rales, rhonchi or wheezes noted. No increased work of breathing, no retractions or nasal flaring. Back: No spinal tenderness. No costovertebral tenderness. Full range of motion. 12:47 MS/ Extremity: Pulses equal, no cyanosis. Neurovascular intact. Full, normal range of motion. 12:47 Skin: Appearance: normal except for affected area, consistent with urticaria, on the back, right arm and left arm. 12:47 Neuro: Exam negative for acute changes, Orientation: is normal, Mentation: is normal, Gait: is steady, at a normal pace, without difficulty. Vital Signs: 12:32 Pulse 62; Resp 17; Temp 98.9; Pulse Ox 96% ; Weight 95.25 kg; Height 5 ft. 4 in. jl7 (162.56 cm); 12:34 BP 144 / 81; jl7 12:32 Body Mass Index 36.05 (95.25 kg, 162.56 cm) jl7 MDM: 12:37 Patient medically screened. pm1 12:45 Data reviewed: vital signs. Data interpreted: Pulse oximetry: on room air is 96 %. pm1 Interpretation: normal. Counseling: I had a detailed discussion with the patient and/or guardian regarding: the historical points, exam findings, and any diagnostic results supporting the discharge/admit diagnosis, the need for outpatient follow up, for definitive care, an allergy/channel specialist, to return to the emergency department if symptoms worsen or persist or if there are any questions or concerns that arise at home. Administered Medications: 12:51 Drug: Decadron 10 mg Route: IM; Site: right deltoid; iw 12:55 Follow up: Response: No adverse reaction jl7 Disposition: 14:43 Co-signature as Attending Physician, Liz Otoole MD. ma2 Disposition: 08/20/19 12:46 Discharged to Home. Impression: Rash and other nonspecific skin eruption. - Condition is Stable. - Discharge Instructions: Hives, Rash. - Prescriptions for Benadryl 25 mg Oral Capsule - take 1 capsule by ORAL route every 6 hours As needed; 30 tablet. Pepcid 20 mg Oral Tablet - take 1 tablet by ORAL route every 12 hours for 10 days; 20 tablet. Medrol (Niall) 4 mg Oral Tablets, Dose Pack - take 1 tablet by ORAL route as directed - follow package instructions; 1 packet. - Medication Reconciliation Form, Thank You Letter, Antibiotic Education, Prescription Opioid Use form. - Follow up: Emergency Department; When: As needed; Reason: Worsening of condition. Follow up: Private Physician; When: 2 - 3 days; Reason: Recheck today's complaints, Continuance of care, Re-evaluation by your physician. - Problem is new. - Symptoms have improved. Signatures: Jacquelin Meier RN Austin Aquino NP [employer] SWIMMER pm1 Jesica Ramos RN RN jl7 Liz Otoole MD MD ma2 Corrections: (The following items were deleted from the chart) 12:55 12:46 08/20/2019 12:46 Discharged to Home. Impression: Rash and other nonspecific skin jl7 eruption. Condition is Stable. Forms are Medication Reconciliation Form, Thank You Letter, Antibiotic Education, Prescription Opioid Use. Follow up: Emergency Department; When: As needed; Reason: Worsening of condition. Follow up: Private Physician; When: 2 - 3 days; Reason: Recheck today's complaints, Continuance of care, Re-evaluation by your physician. Problem is new. Symptoms have improved. pm1
--- NOTE | 2019-08-20 12:47 | ER ---
Nurse's Notes [facility] Name: Marjan Fleming Age: 64 yrs Sex: Female : 1955 Arrival Date: 08/20/2019 Time: 12:18 Bed 12 Private MD: Diagnosis: Rash and other nonspecific skin eruption Presentation: 08/19 12:32 Chief complaint: Patient states: Itchy rash all over x 1 week. Coronavirus screen: jl7 Patient denies fever greater than 100.4F, cough, shortness of breath, or difficulty breathing. Proceed with normal triage process. Ebola Screen: No symptoms or risks identified at this time. Initial Sepsis Screen: Does the patient meet any 2 criteria? No. Patient's initial sepsis screen is negative. Does the patient have a suspected source of infection? No. Patient's initial sepsis screen is negative. Risk Assessment: Do you want to hurt yourself or someone else? Patient reports no desire to harm self or others. Onset of symptoms was August 13, 2019. 12:32 Method Of Arrival: Ambulatory [facility] 12:32 Acuity: BLAYNE 4 jl7 Triage Assessment: 12:34 General: Appears in no apparent distress. uncomfortable, Behavior is calm, cooperative, jl7 appropriate for age. Pain: Denies pain. Neuro: Level of Consciousness is awake, alert, obeys commands. Cardiovascular: Patient's skin is warm and dry. Respiratory: Airway is patent Respiratory effort is even, unlabored, Respiratory pattern is regular, symmetrical. Derm: Rash noted that is itchy, red. Historical: - Allergies: 12:34 Bactrim DS; jl7 12:34 Codeine; jl7 12:34 Demerol; jl7 12:34 metoclopramide HCl; jl7 12:34 Stadol; jl7 - Home Meds: 12:34 Descovy 200-25 mg Oral tab 1 tab once daily [Active]; jl7 - PMHx: 12:34 Anxiety; Atrial Fib; Bipolar disorder; Chronic pain; COPD; esophageal varices; jl7 Hepatitis; HIV; Hypertension; Migraines; Panic Attacks; - Immunization history:: Adult Immunizations unknown. - Social history:: Smoking status: Patient denies any tobacco usage or history of. Screenin:35 Abuse screen: Denies threats or abuse. Denies injuries from another. Nutritional jl7 screening: No deficits noted. Tuberculosis screening: No symptoms or risk factors identified. Fall Risk None identified. Assessment: 12:35 General: See triage assessment. jl7 Vital Signs: 12:32 Pulse 62; Resp 17; Temp 98.9; Pulse Ox 96% ; Weight 95.25 kg; Height 5 ft. 4 in. jl7 (162.56 cm); 12:34 BP 144 / 81; jl7 12:32 Body Mass Index 36.05 (95.25 kg, 162.56 cm) jl7 ED Course: 12:18 Patient arrived in ED. ag5 12:34 Triage completed. jl7 12:34 Arm band placed on right wrist. jl7 12:35 Patient has correct armband on for positive identification. Bed in low position. Call jl7 light in reach. Side rails up X 1. 12:37 Austin Raza NP is PHCP. pm1 12:37 Liz Otoole MD is Attending Physician. pm1 12:54 Jesica Ramos RN is Primary Nurse. jl7 12:54 No provider procedures requiring assistance completed. Patient did not have IV access jl7 during this emergency room visit. Administered Medications: 12:51 Drug: Decadron 10 mg Route: IM; Site: right deltoid; iw 12:55 Follow up: Response: No adverse reaction jl7 Outcome: 12:46 Discharge ordered by . pm1 12:54 Discharged to home ambulatory. jl7 12:54 Condition: stable 12:54 Discharge instructions given to patient, Instructed on discharge instructions, follow up and referral plans. medication usage, Demonstrated understanding of instructions, follow-up care, medications, Prescriptions given X 3. 12:55 Patient left the ED. jl7 Signatures: Jacquelin Meier RN RN iw Austin Raza NP PIANO INSTRUCTOR pm1 Jesica Ramos RN RN jl7 Mary Urbina ag
[2019-08-20] MEDS ORDERED: dexAMETHasone 10 MG/ML VIAL ONE (12:53)
[2019-08-20 13:05] VITALS: TEMP 98.9; O2SAT 96
[2019-08-20 13:08] VITALS: BP 144/81
== END 2019-08-20 12:55 | disposition home or self-care (01) ==
LOC: ER 12:16
DX: R21 Rash and other nonspecific skin eruption (principal); I10 Essential (primary) hypertension; Z21 Asymptomatic human immunodeficiency virus [HIV] infection status; Z88.1 Allergy status to other antibiotic agents; Z88.5 Allergy status to narcotic agent; Z88.6 Allergy status to analgesic agent
CPT/HCPCS: 96372; 99283; J1100

== ENCOUNTER 2019-11-09 06:54 | Emergency (ER) | payer OTHER ==
--- OUTSIDE RECORDS SUMMARY | 2019-11-09 06:57 | XMS REPORT | Clinical Summary ---
:1955 Author Organization [facility] Address [address] [place] [address] Care Team Providers Name Role Phone Asked, No Pcp Primary Care Provider Unavailable Allergies Active Allergy Reactions Severity Noted Date Comments Codeine 07/30/2016 Metoclopramide Hcl 09/23/2016 Medications Medication Sig Dispensed Refills Start Date End Date Status lisinopril Take 40 mg by 0 Activ e (PRINIVIL,ZESTRIL) 40 mouth. mg tablet metoprolol tartrate [...] per tablet DESCOVY 200-25 mg 5 08/09/2016 A ctive tablet ISENTRESS 400 mg TK 1 T PO BID 3 08/07/2016 Active tablet esomeprazole (NexIUM) Take 40 mg by 0 Active 40 MG capsule mouth 2 (two) times a day. clobetasol (TEMOVATE) Apply topically 2 0 Active 0.05 % ointment (two) times a day. 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 7 Family History Medical History Relation Name Comments [...] CANCER SCREENING 01/22/1977 BREAST CANCER SCREENING 01/22/2006 COLONOSCOPY SCREENING 01/22/2006 SHINGLES VACCINES (#1) 01/22/2006 INFLUENZA VACCINE 12/22/2019 Implants Implanted Type Area [employer] Device Shelf Model / Identifier Expiration Serial / Date Lot Versa-Dial/Comp Ti Std Taper Used W/25mm Glenoid Basplate - [id number] N/A: N/A [employer] 01/22/2026 [id number] / Implanted: Qty: 1 on 10/19/2016 by Austin Bowles MD at [facility] IMPLANT / DEVICES [id number] 41mm Comprehensive Reverse Shoulder Glenosphere Ba - [id number] I PM N/A: N/A [employer] 11/21/2023 [id number] / Implanted: Qty: 1 on 10/19/2016 by Austin Bowles MD at [facility] IMPLANT / DEVICES [id number] Arcom Xl 44-41 Std +3 Humeral Brg - [id number] Left: [employer] 07/20/2017 XL [id number] / Implanted: Qty: 1 on 10/19/2016 by Austin Bowles MD at [facility] IMPLANT Shoulder / DEVICES [id number] Humeral Tray With Locking Ring +5 Left: [employer] 03/31/2026 [id number] / Implanted: Qty: 1 on 10/19/2016 by Austin Bowles MD at [facility] Shoulder / [id number] Results Not on fileafter 11/08/2018 Advance Directives For more information, please contact: [phone] Type Date Recorded Patient County Library Director Explanati on Advance Directives, Living Will and Medical Power of Absence Management Consultant
--- OUTSIDE RECORDS SUMMARY | 2019-11-09 06:57 | XMS REPORT | Continuity of Care Document ---
:1955 Author Organization [facility] t Address [address] [place] [address] Care Team Providers Name Role Phone Asked, Pcp Primary Care Physician Unavailable Ronald DHILLON Attending Clinician DO SYL Attending Clinician Unavailable DO SYL Admitting Clinician Unavailable Problems Condition Condition Condition Status Onset Resolution Last Treating Co mments Source Name Details Category Date Date Treatment Clinician Date S/p S/p Disease Active [place] reverse reverse 30 [facility] 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:00: 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 Unstable Unstable Disease Active [facility] on reverse reverse 08-20 Methodi 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:00: 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 Allergies, Adverse Reactions, Alerts Allergy Allergy Status Severity Reaction(s) Onset Inactive Treating Comm ents Source Name Type Date Date Clinician Metoclop Propensi Active Andreato n ramide ty to 5-04 Methodi Hcl adverse 00:00: st reaction 00 s to drug Codeine Propensi Active Derrick ty to 3-10 Methodi adverse 00:00: st reaction 00 s to drug Family History Family Member Diagnosis Comments Start Date Stop Date Source Natural father Hypertension Derrick Jean Natural father Kidney disease Rashida Jean Social History Social Habit Start Date Stop Date Quantity Comments Source Sex Assigned At [place] [facility] Cigarettes smoked 2016-11-03 2016-11-03 [facility] current (pack per 00:00:00 00:00:00 day) - Reported Alcohol intake 2016-11-03 2016-11-03 Current drinker [place] [facility] 00:00:00 00:00:00 of alcohol (finding) Alcohol Comment 2016-09-23 2016-09-23 renzo Corbin ethodi 00:00:00 00:00:00 Smoking Status Start Date Stop Date Source Current every day smoker 2016-11-03 00:00:00 [place] [facility] Medications Ordered Filled Start Stop Current Ordering Indication Dosage Frequency Signature Comments Components Source Medication Medication Date Date Medication? Clinician (SIG) Name Name lisinopril Yes 40mg Take 40 mg [place] (PRINIVIL,Z 6- by mouth. Met hodi ESTRIL) 40 20:31: st mg tablet 31 metoprolol Yes 100mg Take 100 [place] tartrate 6-01 mg by Method[facility] (LOPRESSOR) 20:31: mouth. st 100 mg 31 tablet amLODIPine Yes 10mg Take 10 mg [place] (NORVASC) 6 by mouth. Metho di 10 mg 20:31: st tablet 31 LORAZepam Yes 2mg Take 2 mg [place] (ATIVAN) 2 6 by mouth. Meth jason MG tablet 20:31: st 31 ARIPiprazol Yes 5mg Take 5 mg [place] e (ABILIFY) 6- by mouth. Met hodi 5 MG tablet 20:31: st 31 sertraline Yes 200mg QD 200 mg [place] (ZOLOFT) 25 6-01 every Methodi MG tablet 20:31: morning. st 31 triamterene Yes 1{tbl} QD Take 1 [place] -hydrochlor 6-01 tablet by Met hodi othiazid 20:31: mouth st (MAXZIDE-25 31 daily. ) 37.5-25 mg per tablet esomeprazol Yes 40mg Q.5D Take 40 mg [place] e (NexIUM) 6-01 by mouth 2 Met hodi 40 MG 20:31: (two) st capsule 31 times a day. clobetasol Yes Q.5D Apply [place] (TEMOVATE) 6- topically Meth jason 0.05 % 20:31: 2 (two) st ointment 31 times a day. DESCOVY 2017-0 Yes Derrick 200-25 mg 3-20 Methodi tablet 00:00: st 00 ISENTRESS 2017-0 Yes SHARIF 1 T PO [place] le[place] 400 mg 3-18 BID Methodi tablet 00:00: st 00 Procedures This patient has no known procedures. Plan of Care Planned Activity Planned Date Details Comments Source Future Scheduled 2019-12-22 INFLUENZA VACCINE [place] [facility] Test 00:00:00 [code = INFLUENZA VACCINE] Future Scheduled 2006-01-22 BREAST CANCER [place] [facility] Test 00:00:00 SCREENING [code = BREAST CANCER SCREENING] Future Scheduled 2006-01-22 COLONOSCOPY SCREENING [place] [facility] Test 00:00:00 [code = COLONOSCOPY SCREENING] Future Scheduled 2006-01-22 SHINGLES VACCINES [place] [facility] Test 00:00:00 (#1) [code = SHINGLES VACCINES (#1)] Future Scheduled 1977-01-22 Screening for [facility] Test 00:00:00 malignant neoplasm of cervix (procedure) [code = 820037697] Encounters Start End Encounter Admission Attending Care Care Encounter Source Date/Time Date/Time Type Type Clinicians Facility Department ID 2019-10-12 2019-10-12 [facility] [id number] 07:38:30 08:08:30 ne Visit [facility] [id number] [facility] [id number] Results Test Description Test Time Test Comments Results Result Comments Source CHLAMYDIA, GC, TV,PCR, IN HOUSE 2019-04-21 15:38:00 Test Item Value Reference Range Interpretation Comme nts FT (test code = CHTR) Not detected (qualifier value) Not Detected N FT (test code = NGONO) Not detected (qualifier value) Not Detected N FT (test code = TRVG) Not detected (qualifier value) Not Detected N URINALYSIS WITH [id number] 10:57:00 Test Item Value Reference Range Interpretation Comments Color (test code = UCOLR) Dk. Yellow Clarity (test code = UCLAR) Hazy Glucose (test code = UGLUC) NEGATIVE NEGATIVE N Bilirubin (test code = UBILI) NEGATIVE NEGATIVE N Ketones (test code = UKET) NEGATIVE NEGATIVE N Specific [place] (test code = 1.025 1.005-1.030 A USPGR) Blood (test code = UBLD) NEGATIVE NEGATIVE N PH (test code = UPH) 6.0 4.5-8.0 A Protein (test code = UPROT) Trace NEGATIVE A Urobilinogen (test code = U UROB) 1.0 >0.2 A Nitrite (test code = UNITR) Positive NEGATIVE A Leukocyte Esterase (test code = NEGATIVE NEGATIVE N ULEUK) WBC (test code = WBCUR) 2-4 0-5 A RBC (test code = RBCUR) 0-2 0-5 A Epithial Cells (test code = U EPI) 5-10 0-10 A Mucous (test code = UMUC) None Seen None Seen N Bacteria (test code = UBACT) 3+ None Seen,Trace A Crystals Urine (test code = None Seen None Seen N URCRYS)
[2019-11-09] MEDS ORDERED: ALBUTEROL 2.5 MG/3 ML NEB SOL ONE (07:41)
[2019-11-09] MEDS ORDERED: predniSONE 20 MG TAB ONE (07:41)
[2019-11-09] MEDS ORDERED: IPRATROPIUM BROM 0.5MG/2.5ML ONE (07:41)
[2019-11-09 08:35] LABS: Urine Blood NEGATIVE (NEG); Urine Glucose NEGATIVE (NEG); Urine Protein NEGATIVE (NEG); Urine pH 6.5 (5.0-7.0)
--- NOTE | 2019-11-09 09:02 | RAD REPORT ---
EXAM DESCRIPTION: RAD - Chest Pa And Lat (2 Views) - 11/09/2019 8:34 am CLINICAL HISTORY: DYSPNEA COMPARISON: Portable August 05, portable July 17 TECHNIQUE: Frontal and lateral views of the chest were obtained. FINDINGS: The lungs are underinflated but clear. Interstitial pattern matches comparison. Heart si ze is normal and central vasculature is within normal limits. No pleural effusion or pneumothorax se en. No acute bony finding noted. No aortic abnormality. No worrisome change from prior imaging. IMPRESSION: No acute cardiopulmonary process.
--- NOTE | 2019-11-09 09:12 | EDPHYS ---
Physician Documentation [facility] Name: Marjan Fleming Age: 64 yrs Sex: Female : 1955 Arrival Date: 11/09/2019 Time: 06:57 Bed 7 Private MD: ED Physician Joey Jung HPI: 11/08 07:46 This 64 yrs old Female presents to ER via Ambulatory with complaints of kb Shortness Of Breath. 07:46 The patient has shortness of breath at rest, with light activity, and the patient has a kb history of COPD. Onset: The symptoms/episode began/occurred 3 week(s) ago. Duration: The symptoms are continuous. The patient's shortness of breath is aggravated by exertion, walking, is alleviated by nothing. Associated signs and symptoms: The patient has no apparent associated signs or symptoms. Severity of symptoms: At their worst the symptoms were mild moderate in the emergency department the symptoms are unchanged. The patient has experienced similar episodes in the past, chronically. The patient has not recently seen a physician. Pt reports she has had shortness of breath for 2-3 weeks. Tested for COVID and negative. Denies cough, fever, body aches, sore throat, chest pain. States she has a history of COPD, doesn't smoke. . Historical: - Allergies: 07:19 Bactrim DS; ph 07:19 Demerol; ph 07:19 metoclopramide HCl; ph 07:19 Stadol; ph - Home Meds: 07:19 BuSpar 10 mg BID Oral [Active]; Descovy 200-25 mg Oral tab 1 tab once daily [Active]; ph Hydralazine Oral [Active]; lisinopril 40 mg Oral tab 1 tab twice a day [Active]; Metformin Oral [Active]; metoprolol tartrate 100 mg Oral tab 1 tab 2 times per day [Active]; Norvasc Oral [Active]; raltegravir Oral 1 tab 2 times per day [Active]; sertraline Oral [Active]; - PMHx: 07:19 Anxiety; Atrial Fib; Bipolar disorder; Chronic pain; COPD; esophageal varices; ph Hepatitis; HIV; Hypertension; Migraines; Panic Attacks; - Immunization history:: Adult Immunizations unknown. - Social history:: Smoking status: Patient/guardian denies using tobacco, the patient reports quitting approximately 1 years ago. ROS: 07:45 Constitutional: Negative for fever, chills, and weight loss, ENT: Negative for injury, kb pain, and discharge, Neck: Negative for injury, pain, and swelling, Cardiovascular: Negative for chest pain, palpitations, and edema, Abdomen/GI: Negative for abdominal pain, nausea, vomiting, diarrhea, and constipation, Back: Negative for injury and pain, MS/Extremity: Negative for injury and deformity, Skin: Negative for injury, rash, and discoloration, Neuro: Negative for headache, weakness, numbness, tingling, and seizure. 07:45 Respiratory: Positive for dyspnea on exertion, shortness of breath, Negative for cough, hemoptysis, orthopnea, pleurisy, sputum production, wheezing. Exam: 07:45 Constitutional: This is a well developed, well nourished patient who is awake, alert, kb and in no acute distress. Head/Face: Normocephalic, atraumatic. ENT: Nares patent. No nasal discharge, no septal abnormalities noted. Tympanic membranes are normal and external auditory canals are clear. Oropharynx with no redness, swelling, or masses, exudates, or evidence of obstruction, uvula midline. Mucous membranes moist. Neck: Trachea midline, no thyromegaly or masses palpated, and no cervical lymphadenopathy. Supple, full range of motion without nuchal rigidity, or vertebral point tenderness. No Meningismus. Chest/axilla: Normal chest wall appearance and motion. Nontender with no deformity. No lesions are appreciated. Cardiovascular: Regular rate and rhythm with a normal S1 and S2. No gallops, murmurs, or rubs. Normal PMI, no JVD. No pulse deficits. Respiratory: Lungs have equal breath sounds bilaterally, clear to auscultation and percussion. No rales, rhonchi or wheezes noted. No increased work of breathing, no retractions or nasal flaring. Abdomen/GI: Soft, non-tender, with normal bowel sounds. No distension or tympany. No guarding or rebound. No evidence of tenderness throughout. Skin: Warm, dry with normal turgor. Normal color with no rashes, no lesions, and no evidence of cellulitis. MS/ Extremity: Pulses equal, no cyanosis. Neurovascular intact. Full, normal range of motion. Neuro: Awake and alert, GCS 15, oriented to person, place, time, and situation. Cranial nerves II-XII grossly intact. Motor strength 5/5 in all extremities. Sensory grossly intact. Cerebellar exam normal. Normal gait. Vital Signs: 07:13 BP 178 / 102; Pulse 57; Resp 20; Temp 97.3; Pulse Ox 99% on R/A; Weight 97.52 kg; ph Height 5 ft. 4 in. (162.56 cm); Pain 0/10; 08:30 BP 151 / 87; Pulse 57; Resp 18; Pulse Ox 100% on R/A; ph 09:30 BP 137 / 78; Pulse 54; Resp 18; Temp 97.9; Pulse Ox 99% on R/A; ph 07:13 Body Mass Index 36.90 (97.52 kg, 162.56 cm) ph MDM: 07:11 Patient medically screened. kb 07:45 Data reviewed: vital signs, nurses notes. Data interpreted: Pulse oximetry: on room air kb is 99 %. Interpretation: normal. 09:10 Counseling: I had a detailed discussion with the patient and/or guardian regarding: the kb historical points, exam findings, and any diagnostic results supporting the discharge/admit diagnosis, radiology results, the need for outpatient follow up, a family practitioner, to return to the emergency department if symptoms worsen or persist or if there are any questions or concerns that arise at home. 11/08 07:52 Order name: Urine Dipstick--Ancillary (enter results); Complete Time: 08:39 bd 11/08 07:20 Order name: Chest Pa And Lat (2 Views) XRAY; Complete Time: 09:07 kb 11/08 07:20 Order name: Urine Dipstick-Ancillary (obtain specimen); Complete Time: 07:53 kb Administered Medications: 07:58 Drug: predniSONE 40 mg Route: PO; ph 09:06 Follow up: Response: No adverse reaction ph 07:58 Drug: AtroVENT Aerosol 0.5 mg Route: Inhalation; ph 09:06 Follow up: Response: No adverse reaction ph 07:58 Drug: Albuterol 1.25 mg Route: Inhalation; ph 09:06 Follow up: Response: No adverse reaction ph Disposition: 14:57 Co-signature as Attending Physician, Joey Jung MD I agree with the assessment and kdr plan of care. Disposition: 11/09/19 09:11 Discharged to Home. Impression: Chronic obstructive pulmonary disease with (acute) exacerbation. - Condition is Stable. - Discharge Instructions: Chronic Obstructive Pulmonary Disease Exacerbation. - Prescriptions for Prednisone 20 mg Oral Tablet - take 1 tablet by ORAL route once daily for 5 days; 5 tablet. - Medication Reconciliation Form, Thank You Letter, Antibiotic Education, Prescription Opioid Use form. - Follow up: Emergency Department; When: As needed; Reason: Worsening of condition. Follow up: Private Physician; When: 2 - 3 days; Reason: Recheck today's complaints, Continuance of care, Re-evaluation by your physician. Signatures: Dispatcher [employer] EDMS Rosemary Cespedes, TODDLER GUIDE-C TODDLER GUIDE-Joey Montalvo MD MD kdr Munoz, Edgar, ASHLEY RN em Solange Bennett RN RN ph Corrections: (The following items were deleted from the chart) 09:32 09:11 11/09/2019 09:11 Discharged to Home. Impression: Chronic obstructive pulmonary em disease with (acute) exacerbation. Condition is Stable. Forms are Medication Reconciliation Form, Thank You Letter, Antibiotic Education, Prescription Opioid Use. Follow up: Emergency Department; When: As needed; Reason: Worsening of condition. Follow up: Private Physician; When: 2 - 3 days; Reason: Recheck today's complaints, Continuance of care, Re-evaluation by your physician. kb
--- NOTE | 2019-11-09 09:12 | ER ---
Nurse's Notes [facility] Name: Marjan Fleming Age: 64 yrs Sex: Female : 1955 Arrival Date: 11/09/2019 Time: 06:57 Bed 7 Private MD: Diagnosis: Chronic obstructive pulmonary disease with (acute) exacerbation Presentation: 11/08 07:13 Chief complaint: Patient states: SOB that started this morning, hx of COPD, also ph reports headaches x 1-2 weeks, states, " I was tested for COVID on Tuesday and it was negative", denies chest pain, cough or fever. Coronavirus screen: Patient denies a cough. Patient reports shortness of breath or difficulty breathing. Patient denies measured and/or subjective temperature greater than 100.4F prior to today's visit. Patient denies travel on a cruise ship or to a country the [facility] currently lists as an affected area. Patient denies contact with known and/or suspected case of COVID-19. Tested Tuesday, COVID negative. Ebola Screen: No symptoms or risks identified at this time. Initial Sepsis Screen: Does the patient meet any 2 criteria? No. Patient's initial sepsis screen is negative. Does the patient have a suspected source of infection? No. Patient's initial sepsis screen is negative. Risk Assessment: Do you want to hurt yourself or someone else? Patient reports no desire to harm self or others. Onset of symptoms was November 09, 2019. 07:13 Method Of Arrival: Ambulatory ph 07:13 Acuity: BLAYNE 3 ph Historical: - Allergies: 07:19 Bactrim DS; ph 07:19 Demerol; ph 07:19 metoclopramide HCl; ph 07:19 Stadol; ph - Home Meds: 07:19 BuSpar 10 mg BID Oral [Active]; Descovy 200-25 mg Oral tab 1 tab once daily [Active]; ph Hydralazine Oral [Active]; lisinopril 40 mg Oral tab 1 tab twice a day [Active]; Metformin Oral [Active]; metoprolol tartrate 100 mg Oral tab 1 tab 2 times per day [Active]; Norvasc Oral [Active]; raltegravir Oral 1 tab 2 times per day [Active]; sertraline Oral [Active]; - PMHx: 07:19 Anxiety; Atrial Fib; Bipolar disorder; Chronic pain; COPD; esophageal varices; ph Hepatitis; HIV; Hypertension; Migraines; Panic Attacks; - Immunization history:: Adult Immunizations unknown. - Social history:: Smoking status: Patient/guardian denies using tobacco, the patient reports quitting approximately 1 years ago. Screenin:19 Abuse screen: Denies threats or abuse. Denies injuries from another. Nutritional ph screening: No deficits noted. Tuberculosis screening: No symptoms or risk factors identified. Fall Risk None identified. Assessment: 07:22 General: Appears in no apparent distress. comfortable, Behavior is calm, cooperative, ph appropriate for age, Denies fever, feeling ill. Pain: Denies pain. Neuro: Level of Consciousness is awake, alert, obeys commands, Oriented to person, place, time, situation. Cardiovascular: Reports shortness of breath, Denies chest pain. Respiratory: Reports shortness of breath at rest Airway is patent Respiratory effort is even, unlabored, Respiratory pattern is regular, symmetrical, Denies cough. GI: No signs and/or symptoms were reported involving the gastrointestinal system. Derm: Skin is intact, is healthy with good turgor, Skin is pink, warm \\T\\ dry. Musculoskeletal: Circulation, motion, and sensation intact. Range of motion: intact in all extremities. 08:30 Reassessment: Patient appears in no apparent distress at this time. Patient and/or ph family updated on plan of care and expected duration. Pain level reassessed. Patient is alert, oriented x 3, equal unlabored respirations, skin warm/dry/pink. Vital Signs: 07:13 BP 178 / 102; Pulse 57; Resp 20; Temp 97.3; Pulse Ox 99% on R/A; Weight 97.52 kg; ph Height 5 ft. 4 in. (162.56 cm); Pain 0/10; 08:30 BP 151 / 87; Pulse 57; Resp 18; Pulse Ox 100% on R/A; ph 09:30 BP 137 / 78; Pulse 54; Resp 18; Temp 97.9; Pulse Ox 99% on R/A; ph 07:13 Body Mass Index 36.90 (97.52 kg, 162.56 cm) ph ED Course: 06:57 Patient arrived in ED. ag3 07:11 Rosemary Cespedes F[facility]-C is [facility]. kb 07:11 Joey Jung MD is Attending Physician. kb 07:13 Solange Bennett, RN is Primary Nurse. ph 07:16 Triage completed. ph 07:19 Arm band placed on Patient placed in an exam room, on a stretcher, on pulse oximetry. ph 07:19 Patient has correct armband on for positive identification. Bed in low position. Call ph light in reach. Side rails up X 1. Pulse ox on. NIBP on. Door closed. Noise minimized. Warm blanket given. 07:53 Urine collected: clean catch specimen, clear. dh3 08:35 Chest Pa And Lat (2 Views) XRAY In Process Unspecified. EDMS 09:27 Initial lab(s) drawn, by ar, sent to lab. Inserted saline lock: 22 gauge in right ph antecubital area, using aseptic technique. Blood collected. 09:30 No provider procedures requiring assistance completed. Patient did not have IV access ph during this emergency room visit. Administered Medications: 07:58 Drug: predniSONE 40 mg Route: PO; ph 09:06 Follow up: Response: No adverse reaction ph 07:58 Drug: AtroVENT Aerosol 0.5 mg Route: Inhalation; ph 09:06 Follow up: Response: No adverse reaction ph 07:58 Drug: Albuterol 1.25 mg Route: Inhalation; ph 09:06 Follow up: Response: No adverse reaction ph Outcome: 09:11 Discharge ordered by . kb 09:32 Patient left the ED. em 09:32 Discharged to home ambulatory. ph 09:32 Condition: good 09:32 Discharge instructions given to patient, Instructed on discharge instructions, follow up and referral plans. medication usage, Demonstrated understanding of instructions, follow-up care, medications, Prescriptions given X 1. Signatures: Dispatcher [employer] [facility] Rosemary Cespedes, SHIFT SUPERINTENDENT-C JOSE M-Venu Mcdonald RN RN Solange Bennett, ASHLEY RN [place] [address] [address] [facility]
[2019-11-09 09:44] VITALS: TEMP 97.3
[2019-11-09 09:51] VITALS: BP 151/87; O2SAT 100
== END 2019-11-09 09:32 | disposition home or self-care (01) ==
LOC: ER 06:54
DX: J44.1 Chronic obstructive pulmonary disease with (acute) exacerbation (principal); Z88.1 Allergy status to other antibiotic agents; Z88.6 Allergy status to analgesic agent; I10 Essential (primary) hypertension
CPT/HCPCS: 71046; 81003; 99284; J7512

== ENCOUNTER 2019-12-26 07:27 | Emergency (ER) | payer OTHER ==
--- OUTSIDE RECORDS SUMMARY | 2019-12-26 07:30 | XMS REPORT | Clinical Summary ---
:1955 Author Organization [facility] Address [address] [place] [address] Care Team Providers Name Role Phone Asked, [...] INFLUENZA VACCINE 12/22/2019 Implants Implanted Type Area Land Degradation Analyst Device Shelf Model / Identifier Expiration Serial / Date Lot Versa-Dial/Comp Ti Std Taper Used W/25mm Glenoid Basplate - [id number] N/A: N/A [employer] 01/22/2026 [id number] / Implanted: Qty: 1 on 10/19/2016 by Austin Bowles MD at [facility] IMPLANT / DEVICES [id number] 41mm Comprehensive Reverse Shoulder Glenosphere Ba - [id number] PM N/A: N/A [employer] 11/21/2023 [id number] / Implanted: Qty: 1 on 10/19/2016 by Austin Bowles MD at [facility] IMPLANT / DEVICES [id number] Arcom Xl 44-41 Std +3 Humeral Brg - [id number] Left: BIOM ET[employer] 07/20/2017 XL [id number] / Implanted: Qty: 1 on 10/19/2016 by Austin Bowles MD at [facility] IMPLANT Shoulder / DEVICES [id number] Humeral Tray With Locking Ring +5 Left: [employer] 03/31/2026 [id number] / Implanted: Qty: 1 on 10/19/2016 by Austin Bowles MD at [facility] Shoulder / [id number] Results Not on fileafter 12/25/2018 Advance Directives For more information, please contact: [phone] Type Date Recorded 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
--- OUTSIDE RECORDS SUMMARY | 2019-12-26 07:30 | XMS REPORT | Continuity of Care Document ---
:1955 Author Organization [facility] Address [address] [place] [address] Care Team Providers Name Role Phone Asked, Pcp Primary Care Physician Unavailable DO SYL Attending Clinician Unavailable DO SYL Admitting Clinician Unavailable Problems Condition Condition Condition Status Onset Resolution Last Treating Co mments Source Name Details Category Date Date Treatment Clinician Date S/p S/p Disease Active [place] reverse reverse 30 Methodi 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:00: 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 Unstable Unstable Disease [facility] Methodi 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:00: 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 Allergies, Adverse Reactions, Alerts Allergy Allergy Status Severity Reaction(s) Onset Inactive Treating Comm ents Source Name Type Date Date Clinician Metoclop Propensi Active Rashida soares ramide ty to 5-04 Methodi Hcl adverse [...] Date Quantity Comments Source Sex Assigned At [facility] ethodist Cigarettes smoked 2016-11-03 2016-11-03 Derrick Jean current (pack per 00:00:00 00:00:00 day) - Reported Alcohol intake 2016-11-03 2016-11-03 Current drinker Porsha on Jain 00:00:00 00:00:00 of alcohol (finding) Alcohol Comment 2016-09-23 2016-09-23 renzo Corbin ethodist 00:00:00 00:00:00 Smoking Status Start Date Stop Date Source Current every day smoker 2016-11-03 00:00:00 Kilo ston Jain Medications Ordered Filled Start Stop Current Ordering Indication Dosage Frequency Signature Comments Components Source Medication Medication Date Date Medication? Clinician (SIG) Name Name lisinopril 2017 Yes 40mg Take 40 mg [place] [...] Take 5 mg [place] (ABILIFY) 6 by mouth. Met hodi 5 MG tablet 20:31: st 31 sertraline Yes 200mg QD 200 mg [place] (ZOLOFT) 25 6- every Methodi MG tablet 20:31: morning. st 31 triamterene Yes 1{tbl} QD Take 1 [place] -hydrochlor 6- tablet by Met hodi othiazid 20:31: mouth st (MAXZIDE-25 31 daily. ) 37.5-25 mg per tablet esomeprazol Yes 40mg Q.5D Take 40 mg Meza e (NexIUM) 6- by mouth 2 Met hodi 40 MG [...] Future Scheduled 2019-12-22 INFLUENZA VACCINE [place] [facility] Test 00:00:00 [code = INFLUENZA VACCINE] Future Scheduled 2006-01-22 BREAST CANCER [facility] thodist Test 00:00:00 SCREENING [code = BREAST CANCER SCREENING] Future Scheduled 2006-01-22 COLONOSCOPY SCREENING [facility] [place] Jain Test 00:00:00 [code = COLONOSCOPY SCREENING] Future Scheduled 2006-01-22 SHINGLES VACCINES [place] [facility] Test 00:00:00 (#1) [code = SHINGLES VACCINES (#1)] Future Scheduled 1977-01-22 Screening for [facility] thodist Test 00:00:00 malignant neoplasm of cervix (procedure) [code = 863421937] Results Test Description Test Time Test Comments [...] (qualifier value) Not Detected N URINALYSIS WITH [id number] 10:57:00 Test Item Value Reference Range Interpretation Comments Color (test code = UCOLR) Dk. Yellow Clarity (test code = UCLAR) Hazy Glucose (test code = UGLUC) NEGATIVE NEGATIVE N Bilirubin (test code = UBILI) NEGATIVE NEGATIVE N Ketones (test code = UKET) NEGATIVE NEGATIVE N Specific Brooks (test code = 1.025 1.005-1.030 A USPGR) [...]
--- OUTSIDE RECORDS SUMMARY | 2019-12-26 07:31 | XMS REPORT | Clinical Summary ---
:1955 Author Organization [facility] Address [address] [place] [id number] Care Team Providers Name Role Phone Rahman Primary Care Provider Allergies Active Allergy Reactions Severity Noted Date Comments Metoclopramide Unknown - See comments 05/28/2016 Metoclopramide Hcl Anxiety 02/14/2015 Butorphanol Tartrate Hallucinations High 07/06/2010 Sulfamethoxazole Unknown - See comments 04/23/2016 Acetaminophen-Codeine Nausea and/or Vomiting 7 Medications Medication Sig Dispensed Refills Start Date End Date Status hydralAZINE Take 25 mg by 0 Acti ve (APRESOLINE) 25 mg mouth daily. tablet lisinopril Take 40 mg by 0 Activ e (PRINIVIL,ZESTRIL) 40 mouth 2 (two) mg tablet times daily. metoprolol tartrate Take 100 mg by 0 Active (LOPRESSOR) 100 mg mouth 2 (two) tablet times daily. amLODIPine (NORVASC) 10 Take 10 mg by 0 Active mg tablet mouth daily. desonide (TRIDESILON) Apply to 60 g 2 06/24/2015 Active 0.05 % ointment affected area(s) 2 (two) times daily. esomeprazole (NEXIUM) Take 40 mg by 0 Active 40 mg capsule mouth 2 (two) times daily. tiotropium bromide Inhale. 0 01/17/2019 Active (SPIRIVA RESPIMAT) 1.25 mcg/actuation Mist cloNIDine 0.1 mg tablet Take 0.1 mg by 0 Active mouth 3 (three) times daily. SERTraline 100 mg Take 2 tablets 60 tablet 2 10/08/2019 Active tabletIndications: Mild by mouth daily. depressed bipolar II disorder LORazepam 2 mg tablet Take 1 tablet by 60 tablet 2 10/08/2019 Active mouth 2 (two) times daily as needed (anxiety). emtricitabine-tenofovir Take one po 30 tablet 5 10/12/2019 Active alafen (DESCOVY) daily tabletIndications: Symptomatic HIV infection raltegravir (ISENTRESS) Take 1 tablet by 60 tablet 5 0 Active 400 mg mouth 2 (two) tabletIndications: times daily. Symptomatic HIV infection albuterol 90 0 09/04/2019 Active mcg/actuation inhaler cholestyramine 4 gram 0 07/27/2019 Active packet busPIRone 10 mg Take 1 tablet by 120 tablet 2 12/13/2019 Active tabletIndications: mouth 3 (three) Generalized anxiety times daily. disorder Take 1.5 tablet in the morning and at noon, and take 1 tablet at bedtime. Active Problems Problem Noted Date Obesity (BMI 30-39.9) 05/10/2016 Anemia 02/22/2015 Hypovolemia due to hemorrhage 02/21/2015 Chest pain 02/21/2015 S/p reverse total shoulder arthroplasty 02/17/2015 Posttraumatic stress disorder 09/27/2012 Human immunodeficiency virus (HIV) disease 11/18/2010 Bipolar 2 disorder 11/18/2010 Chronic hepatitis C 11/18/2010 Hypertension 11/18/2010 Encounters Date Type Specialty Care Team Description 10/12/2019 Telemedicine Visit Infectious Disease Santiago Cardenas S ymptomatic HIV PA infection (Prim nancy Dx) 10/03/2019 Case Management Public Health & Michael Hagen Abstract (chart General Preventive M, stacker tender - external) Medicine 09/27/2019 Telephone Infectious Disease Santiago Cardenas Refill Request PA from Last 3 Months Immunizations Name Administration Dates Next Due HEPATITIS A 03/02/2004, 08/01/2003 Hep B, Adol or Pedi Dosage 09/01/2011, 03/17/2011, 1 Influenza Virus Vaccine 03/08/2017, 02/16/2012, 02/10/2011 Influenza Virus Vaccine (3+ yrs) 01/30/2014 PPD (TB) 02/16/2012, 11/18/2010, 10/04/2001 Pneumococcal 13 Conjugate, PCV13 (Prevnar 01/30/2014 13) Pneumococcal Polysaccharide, PPSV23 02/16/2012, 10/04/2001 (PNEUMOVAX) TDAP (ADACEL) VACCINE 11/18/2010 Family History Medical History Relation Name Comments Diabetes Father Other - see comments Father ESRD Coronary Heart Disease Father [place], late 60s? Cancer Mother leukemia Relation Name Status Comments Father stroke or [place] Father Father Father Mother Mother Social History Tobacco Use Types Packs/Day Years Used Date Current Some Day Smoker Cigarettes 41 Quit : 09/29/2011 Smokeless Tobacco: Former User Q uit: 09/29/2011 Tobacco Cessation: Ready to Quit: Yes; C ounseling Given: Yes Comments: Smokes approx 1-2 cigarettes p er day when she smokes Alcohol Use Drinks/Week [...] Comments Blood Pressure 121/84 07/09/2019 9:33 AM VISUAL MANAGER Pulse 72 07/09/2019 9:33 AM VISUAL MANAGER Temperature 36.3 C (97.3 F) 04/18/2019 8:31 AM VISUAL MANAGER Respiratory Rate 18 07/09/2019 9:33 AM VISUAL MANAGER Oxygen Saturation 98% 06/27/2016 11:12 AM VISUAL MANAGER Inhaled Oxygen Concentration - - Weight 95 kg (209 lb 6.4 oz) 07/09/2019 9:33 AM VISUAL MANAGER Height 162.6 cm (5' 4") 07/09/2019 9:33 AM VISUAL MANAGER Body Mass Index 35.94 07/09/2019 9:33 AM VISUAL MANAGER Plan of Treatment Date Type Specialty Care Team Description 01/16/2020 Office Visit Infectious Disease [place] [address] [place] [id number] Health Maintenance Due Date Last Done Comments COLONOSCOPY 01/22/2006 Zoster Recombinant Vaccine 01/22/2006 (SHINGRIX) (1 of 2) PAP SMEAR 07/31/2006 08/01/2003 LUNG CANCER SCREEN: 01/22/2011 Recommended for age 55-80 with 30 + pack year history Breast Cancer Screening 09/06/2019 09/05/2018 (MAMMOGRAM) INFLUENZA VACCINE (#1) 2020 03/08/2017, 01/30/2014, P ostponed from 02/16/2012, Additional 0 (Refused) history exists Depression Screening 10/07/2020 10/08/2019, 10/08/2019 DTaP,Tdap,and Td Vaccines 11/18/2020 11/18/2010 (2 - Td) HEPATITIS C (HCV) SCREEN Completed 07/06/2010 PNEUMOCOCCAL 0-64 YEARS Completed 01/30/2014, 02/16/2012, COMBINED SERIES 10/04/2001 Implants Implanted Type Area Breaker Table Worker Device Shelf Model / Identifier Expiration Serial / Lot Date Central Screw SHOULDER Left: Biomet 03/23/2024 [id number] / Implanted: Qty: 1 on 02/17/2015 by Roland Dixon MD at [facility] Shoulder 3 [id number] / [id number] Mini Humeral Stem SHOULDER Left: [employer] 07/31/2024 1 [id number] / Implanted: Qty: 1 on 02/17/2015 by Roland Dixon MD at [facility] Shoulder 4 [id number] / [id number] Fixed Locking Screw SHOULDER Left: Biomet [id number] / Implanted: Qty: 1 on 02/17/2015 by Roland Dixon MD at [facility] Shoulder [id number] / [id number] Glenosphere SHOULDER Left: Biomet 12/05/2024 [id number] / Implanted: Qty: 1 on 02/17/2015 by Roland Dixon MD at [facility] Shoulder [id number] / [id number] Fixed Locking Screw SHOULDER Left: [employer]omet 12/30/2024 [id number] / Implanted: Qty: 1 on 02/17/2015 by Roland Dixon MD at [facility] Shoulder 0 [id number] / [id number] Fixed Locking Screw SHOULDER Left: [employer]omet 12/31/2024 [id number] / Implanted: Qty: 1 on 02/17/2015 by Roland Dixon MD at [facility] Shoulder [id number] / [id number] Humeral Tray With Locking Ring SHOULDER Left: [employer]omet 12/16/2024 [id number] / Implanted: Qty: 1 on 02/17/2015 by Roland Dixon MD at [facility] Shoulder 8 [id number] / [id number] Glensphere Mini Baseplate SHOULDER Left: Biomet 01/21 [id number] / Implanted: Qty: 1 on 02/17/2015 by Roland Dixon MD at [facility] Shoulder 1 [id number] / [id number] Humeral Bearing SHOULDER Left: Biomet 12/12/2019 XL- [id number] / Implanted: Qty: 1 on 02/17/2015 by Roland Dixon MD at [facility] Shoulder [id number] / [id number] Fixed Locking Scew SHOULDER Left: [employer]omet 12/11/2024 [id number] / Implanted: Qty: 1 on 02/17/2015 by Roland Dixon MD at [facility] Shoulder [id number] / [id number] Results Not on filefrom Last 3 Months Insurance Payer Benefit Plan / Subscriber ID Effective Phone Address T ype Group Dates [facility] [id number] 2019-Pre Medicar e Adv HEALTHCARE - HEALTHCARE DUAL sent H MO MANAGED COMPLETE HMO MEDICARE [facility] [id number] 2019-Pre P O BOX Beh avioral BEHAVIORAL BEHAVIORAL sent [id number] [place] [address] [facility] xxxxxxxxx 2019-Pre Me dicaid HEALTHCARE COMM PLUS sent PLAN - MANAGED MEDICAID [facility] [id number] 2019-Pre B ehavioral [place] - MANAGED BEHAVIORAL sent [facility] MEDICAID [facility] Self 1955 [phone] [place] [address] Advance Directives Type Date Recorded Patient Rod And Tube Straightener Explanati on Advance Directives and Living 01/20/2015 9:28 AM Will Power of Intelligence Agent 01/20/2015 9:28 AM
--- OUTSIDE RECORDS SUMMARY | 2019-12-26 07:32 | XMS REPORT | Clinical Summary ---
:1955 Author Organization [facility] Address [address] [place] [id number] Care Team Providers Name Role Phone Rahman [...] Michael Hagen Abstract (chart General Preventive M, turf keeper - external) Medicine 09/27/2019 Telephone Infectious Disease [...] comments Father ESRD Coronary Heart Disease Father [place], late 60s? Cancer Mother leukemia Relation Name Status Comments Father stroke or [place] Father Father Father Mother Mother Social History [...] Comments Blood Pressure 121/84 07/09/2019 9:33 AM MECHANICAL DESIGN TECHNICIAN Pulse 72 07/09/2019 9:33 AM MECHANICAL DESIGN TECHNICIAN Temperature 36.3 C (97.3 F) 04/18/2019 8:31 AM MECHANICAL DESIGN TECHNICIAN Respiratory Rate 18 07/09/2019 9:33 AM MECHANICAL DESIGN TECHNICIAN Oxygen Saturation 98% 06/27/2016 11:12 AM MECHANICAL DESIGN TECHNICIAN Inhaled Oxygen Concentration - - Weight 95 kg (209 lb 6.4 oz) 07/09/2019 9:33 AM MECHANICAL DESIGN TECHNICIAN Height 162.6 cm (5' 4") 07/09/2019 9:33 AM MECHANICAL DESIGN TECHNICIAN Body Mass Index 35.94 07/09/2019 9:33 AM MECHANICAL DESIGN TECHNICIAN Plan of Treatment Date Type Specialty Care Team Description 01/16/2020 Office Visit Infectious Disease [place] [facility] [address] [place] [address] Health Maintenance Due Date Last Done [...] COMBINED SERIES 10/04/2001 Implants Implanted Type Area Utility Technician Device Shelf Model / Identifier Expiration Serial / Lot Date Central Screw SHOULDER Left: Biomet 03/23/2024 [id number] / Implanted: Qty: 1 on 02/17/2015 by Roland Dixon MD at [facility] Shoulder 3 [id number] / [id number] Mini Humeral Stem SHOULDER Left: [employer]omet 07/31/2024 1 [id number] / Implanted: Qty: 1 on 02/17/2015 by Roland Dixon MD at [facility] Shoulder [id number] / [id number] Fixed Locking Screw SHOULDER Left: Biomet [id number] / Implanted: Qty: 1 on 02/17/2015 by Roland Dixon MD at [facility] Shoulder 8 [id number] / [id number] Glenosphere SHOULDER Left: [employer]omet 12/05/2024 [id number] / Implanted: Qty: 1 on 02/17/2015 by Roland Dixon MD at [facility] Shoulder 7 [id number] / [id number] Fixed Locking Screw SHOULDER Left: [employer]omet 12/30/2024 [id number] / Implanted: Qty: 1 on 02/17/2015 by Roland Dixon MD at [facility] Shoulder 0 [id number] / [id number] Fixed Locking Screw SHOULDER Left: [employer]omet 12/31/2024 [id number] / Implanted: Qty: 1 on 02/17/2015 by Roland Dixon MD at [facility] Shoulder 0 [id number] / [id number] Humeral Tray With Locking Ring SHOULDER Left: [employer]omet 12/16/2024 [id number] / Implanted: Qty: 1 on 02/17/2015 by Roland Dixon MD at [facility] Shoulder 8 [id number] / [id number] Glensphere Mini Baseplate SHOULDER Left: Biomet 01/21 [id number] / Implanted: Qty: 1 on 02/17/2015 by Roland Dixon MD at [facility] Shoulder 1 [id number] / [id number] Humeral Bearing SHOULDER Left: Biomet 12/12/2019 XL- [id number] / Implanted: Qty: 1 on 02/17/2015 by Roland Dixon MD at [facility] Shoulder 5 [id number] / [id number] Fixed Locking Scew SHOULDER Left: [employer]omet 12/11/2024 [id number] / Implanted: Qty: 1 on 02/17/2015 by Roland Dixon MD at [facility] Shoulder 8 [id number] / [id number] Results Not on filefrom Last 3 Months Insurance Payer Benefit Plan / Subscriber ID Effective Phone Address T ype Group Dates [facility] [id number] 2019-Pre Medicar e Adv HEALTHCARE - HEALTHCARE DUAL sent H MO MANAGED COMPLETE HMO MEDICARE [facility] [id number] 2019-Pre P O BOX Beh avioral BEHAVIORAL BEHAVIORAL sent [id number] [place] [address] [facility] xxxxxxxxx 2019-Pre Me dicaid HEALTHCARE COMM PLUS sent PLAN - MANAGED MEDICAID [facility] [id number] 2019-Pre B ehavioral [place] - MANAGED BEHAVIORAL sent [facility] MEDICAID [facility] Self 1955 [phone] [place] [address] Advance Directives Type Date Recorded Patient Rip Machine 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
[2019-12-26] MEDS ORDERED: MORPHINE 4 MG/ML SYR ONE ×2 (08:18→10:00)
[2019-12-26] MEDS ORDERED: ONDANSETRON 4 MG/2 ML VIAL ONE (08:18)
[2019-12-26 08:56] LABS: Absolute Lymphocytes (CBC) 1.3 K/uL (0.7-4.9); Basophils % 0.4 % (0-1.3); Hematocrit 37.8 % (36.0-45.0); Lymphocytes % 15.7 % (15.3-44.8); MPV 7.8 fL (7.6-11.3); RBC Red Blood Cell Count 4.64 M/uL (3.86-4.86)
[2019-12-26 08:57] LABS: Protime INR 0.93
--- NOTE | 2019-12-26 09:04 | RAD REPORT ---
EXAM DESCRIPTION: Patrick Single View12/26/2019 8:13 am CLINICAL HISTORY: Chest pain COMPARISON: October 2019 FINDINGS: The lungs appear clear of acute infiltrate. The heart is mildly enlarged. Small to moderate hiatal hernia IMPRESSION: No acute abnormalities displayed
[2019-12-26 09:13] LABS: ALT/SGPT 34 U/L (12-78); AST/SGOT 32 U/L (15-37); Albumin 3.3 g/dL (3.4-5.0); Alkaline Phosphatase 80 U/L (45-117); BUN Blood Urea Nitrogen 25 mg/dL (7-18); Bicarbonate 29 mmol/L (21-32); Bilirubin Direct < 0.1 mg/dL (0-0.2); Bilirubin Total 0.2 mg/dL (0.2-1.0); Glucose Level 108 mg/dL (74-106); Magnesium 2.3 mg/dL (1.8-2.4); NT PRO-BNP 252 pg/mL (<125); Potassium 3.9 mmol/L (3.5-5.1); Protein, Total 7.4 g/dL (6.4-8.2); Sodium Level 143 mmol/L (136-145); Troponin (Emerg Dept Use Only) < 0.02 ng/mL (0.0-0.045)
--- NOTE | 2019-12-26 11:21 | RAD REPORT ---
EXAM DESCRIPTION: CT - Chest Abd Pelvis Wo Con - 12/26/2019 11:04 am CLINICAL HISTORY: Chest and abdominal pain COMPARISON: June 2019 CT chest TECHNIQUE: Computed axial tomography of the chest, abdomen and pelvis was obtained. Oral contrast wa s given. IV contrast was not requested. All CT scans are performed using dose optimization technique as appropriate and may include automated exposure control or mA/KV adjustment according to patient size. FINDINGS: The evaluation of mediastinum, fernando, vessels and solid organs is limited secondary to the lack of IV contrast administration Main pulmonary artery is prominent which may indicate pulmonary arterial hypertension A pleural effusion is not present. A pericardial effusion is not seen. Mild tree-in-bud opacities within the lungs bilaterally Moderate hiatal hernia Bilateral renal cystic mass is nonspecific without IV contrast. They probably are cysts. Largest pres ent within the left kidney measuring 4.3 centimeters The liver, spleen, pancreas, and adrenals appear grossly normal There is no evidence of diverticulitis. Small umbilical hernia contains fat IMPRESSION: Mild bilateral tree-in-bud opacities may indicate an atypical pneumonia
[2019-12-26] MEDS ORDERED: MEPERIDINE HCL 50 MG/ML ONE (12:27)
--- NOTE | 2019-12-26 12:46 | EDPHYS ---
Physician Documentation [facility] Name: Marjan Fleming Age: 64 yrs Sex: Female : 1955 Arrival Date: 12/26/2019 Time: 07:29 Bed 8 Private MD: ED Physician Joey Jung HPI: 12/25 08:09 This 64 yrs old Female presents to ER via Ambulatory with complaints of Chest kdr Pain. 08:09 The patient or guardian reports chest pain that is located primarily in the anterior kdr chest wall, left. Onset: acutely, last night. The pain does not radiate. Associated signs and symptoms: Pertinent positives: diaphoresis, nausea, Pertinent negatives: dizziness, lower extremity swelling, lightheadedness, shortness of breath. The chest pain is described as aching, dull, a pressure. Duration: The patient or guardian reports a single episode, that is still ongoing. Modifying factors: The symptoms are alleviated by nothing. the symptoms are aggravated by nothing. Severity of pain: At its worst the pain was severe in the emergency department the pain is unchanged. The patient has not experienced similar symptoms in the past. The patient has not recently seen a physician. The patient thought is was heartburn and made several attempts to resolve it with stomach pills but they had no effect on her symptoms. Historical: - Allergies: 07:44 Bactrim DS; ss 07:44 metoclopramide HCl; ss 07:44 Stadol; ss - PMHx: 07:44 Anxiety; Chronic pain; Bipolar disorder; Atrial Fib; esophageal varices; COPD; ss Hepatitis; HIV; Hypertension; Migraines; Panic Attacks; - Immunization history:: Adult Immunizations up to date. - Social history:: Smoking status: Patient/guardian denies using tobacco, Stopped _ months ago 6. ROS: 08:09 Constitutional: Negative for fever, chills, and weight loss, Eyes: Negative for injury, kdr pain, redness, and discharge, ENT: Negative for injury, pain, and discharge, Neck: Negative for injury, pain, and swelling, Respiratory: Negative for shortness of breath, cough, wheezing, and pleuritic chest pain, Abdomen/GI: Negative for abdominal pain, nausea, vomiting, diarrhea, and constipation, Back: Negative for injury and pain, : Negative for injury, bleeding, discharge, and swelling, MS/Extremity: Negative for injury and deformity, Skin: Negative for injury, rash, and discoloration, Neuro: Negative for headache, weakness, numbness, tingling, and seizure activity. Psych: Negative for depression, anxiety, suicide ideation, homicidal ideation, and hallucinations, Allergy/Immunology: Negative for hives, rash, and allergies, Endocrine: Negative for neck swelling, polydipsia, polyuria, polyphagia, and marked weight changes, Hematologic/Lymphatic: Negative for swollen nodes, abnormal bleeding, and unusual bruising. 08:09 Cardiovascular: Positive for chest pain, of the anterior aspect of left upper chest. Exam: 08:09 Constitutional: This is a well developed, well nourished patient who is awake, alert, kdr and in no acute distress. Head/Face: Normocephalic, atraumatic. Eyes: Pupils equal round and reactive to light, extra-ocular motions intact. Lids and lashes normal. Conjunctiva and sclera are non-icteric and not injected. Cornea within normal limits. Periorbital areas with no swelling, redness, or edema. Neck: Trachea midline, no thyromegaly or masses palpated, and no cervical lymphadenopathy. Supple, full range of motion without nuchal rigidity, or vertebral point tenderness. No Meningismus. Chest/axilla: Normal chest wall appearance and motion. Nontender with no deformity. No lesions are appreciated. Cardiovascular: Regular rate and rhythm with a normal S1 and S2. No gallops, murmurs, or rubs. Normal PMI, no JVD. No pulse deficits. Respiratory: Lungs have equal breath sounds bilaterally, clear to auscultation and percussion. No rales, rhonchi or wheezes noted. No increased work of breathing, no retractions or nasal flaring. Abdomen/GI: Soft, non-tender, with normal bowel sounds. No distension or tympany. No guarding or rebound. No evidence of tenderness throughout. Back: No spinal tenderness. No costovertebral tenderness. Full range of motion. Skin: Warm, dry with normal turgor. Normal color with no rashes, no lesions, and no evidence of cellulitis. MS/ Extremity: Pulses equal, no cyanosis. Neurovascular intact. Full, normal range of motion. Neuro: Awake and alert, GCS 15, oriented to person, place, time, and situation. Cranial nerves II-XII grossly intact. Motor strength 5/5 in all extremities. Sensory grossly intact. Cerebellar exam normal. Normal gait. Psych: Awake, alert, with orientation to person, place and time. Behavior, mood, and affect are within normal limits. 18:51 ECG was reviewed by the Attending Physician. kdr Vital Signs: 07:40 BP 170 / 118; Pulse 67; Resp 19; Temp 98.4(TE); Pulse Ox 100% on R/A; Weight 99.34 kg; ss Height 5 ft. 4 in. (162.56 cm); Pain 8/10; 08:52 BP 179 / 91; Pulse 63; Resp 18; Pulse Ox 95% on R/A; Pain 7/10; ph 10:07 BP 168 / 87; Pulse 64; Resp 18; Pulse Ox 96% on R/A; ph 11:42 BP 119 / 67; Pulse 58; Resp 18; Pulse Ox 95% ; sv 12:24 BP 110 / 68; Pulse 66; Resp 18; Pulse Ox 95% on R/A; ph 13:30 BP 148 / 78; Pulse 67; Resp 18; Temp 98.1; Pulse Ox 96% on R/A; ph 07:40 Body Mass Index 37.59 (99.34 kg, 162.56 cm) ss 12:24 pt lying on side ph MDM: 08:09 Data reviewed: vital signs, nurses notes, lab test result(s), radiologic studies. kdr Counseling: I had a detailed discussion with the patient and/or guardian regarding: the historical points, exam findings, and any diagnostic results supporting the discharge/admit diagnosis, lab results, radiology results. 12:45 Patient medically screened. kdr 12:49 ED course: HAND SEWER = 380. kdr 12/25 07:47 Order name: Basic Metabolic Panel; Complete Time: 09:48 kdr 12/25 07:47 Order name: CBC with Diff; Complete Time: 09:13 kdr 12/25 07:47 Order name: LFT's; Complete Time: 09:48 kdr 12/25 07:47 Order name: Magnesium; Complete Time: 09:48 kdr 12/25 07:47 Order name: NT PRO-BNP; Complete Time: 09:48 kdr 12/25 07:47 Order name: PT-INR; Complete Time: 09:13 kdr 12/25 07:47 Order name: Troponin (emerg Dept Use Only); Complete Time: 09:48 kdr 12/25 07:47 Order name: XRAY Chest (1 view); Complete Time: 09:13 kdr 12/25 11:03 Order name: Chest Abd Pelvis Wo Con; Complete Time: 11:24 EDMS 12/25 11:40 Order name: Troponin (emerg Dept Use Only); Complete Time: 12:44 kdr 12/25 07:47 Order name: EKG; Complete Time: 07:47 kdr 12/25 07:47 Order name: Cardiac monitoring; Complete Time: 08:44 kdr 12/25 07:47 Order name: EKG - Nurse/Tech; Complete Time: 08:45 kdr 12/25 07:47 Order name: IV Saline Lock; Complete Time: 08:45 kdr 12/25 07:47 Order name: Labs collected and sent; Complete Time: 08:45 kdr 12/25 07:47 Order name: O2 Per Protocol; Complete Time: 08:45 kdr 12/25 07:47 Order name: O2 Sat Monitoring; Complete Time: 09:54 kdr EC:51 Rate is 60 beats/min. Rhythm is regular, Normal Sinus Rhythm with No ectopy. QRS Burkett kdr is Normal. CO interval is normal. QRS interval is normal. QT interval is normal. Clinical impression: Normal ECG. Administered Medications: 08:35 Drug: morphine 4 mg Route: IVP; Site: right hand; ph 08:45 Follow up: Response: No adverse reaction; Pain is decreased; RASS: Alert and Calm (0) ph 08:35 Drug: Zofran (Ondansetron) 4 mg Route: IVP; Site: right hand; ph 08:45 Follow up: Response: No adverse reaction ph 10:03 Drug: morphine 4 mg Route: IVP; Site: right hand; ph 10:15 Follow up: Response: No adverse reaction; Pain is decreased ph 12:26 Drug: Demerol 25 mg Route: IVP; Site: right hand; ph 12:45 Follow up: Response: No adverse reaction; Pain is decreased ph Disposition: 12/26/19 12:45 Discharged to Home. Impression: Chest pain on breathing. - Condition is Stable. - Discharge Instructions: Nonspecific Chest Pain, Dvhw-[id number], Community-Acquired Pneumonia, Adult, [id number]. - Prescriptions for Tramadol 50 mg Oral Tablet - take 1 tablet by ORAL route every 8 hours as needed; 12 tablet. Zithromax Z- Niall 250 mg Oral Tablet - take 1 tablet by ORAL route as directed for 5 days Day 1 - take two (2) tablets one time. Day 2, 3, 4 , 5 take one (1) tablet once daily.; 6 tablet. - Medication Reconciliation Form, Thank You Letter form. - Follow up: Private Physician; When: 2 - 3 days; Reason: If symptoms return, Further diagnostic work-up, Recheck today's complaints, Continuance of care, Re-evaluation by your physician. - Problem is new. - Symptoms have improved. Signatures: Dispatcher [employer] EDMS Joey Jung MD MD kdr Sandra Cadet RN RN ss Solange Bennett RN RN ph Corrections: (The following items were deleted from the chart) 11:03 09:51 Angio Aorta For Dissection+CT.RAD.BRZ ordered. EDIN EDMS 12:26 07:44 Allergies: Demerol; ph 13:47 12:45 12/26/2019 12:45 Discharged to Home. Impression: Chest pain on breathing. ph Condition is Stable. Forms are Medication Reconciliation Form, Thank You Letter, Antibiotic Education, Prescription Opioid Use. Follow up: Private Physician; When: 2 - 3 days; Reason: If symptoms return, Further diagnostic work-up, Recheck today's complaints, Continuance of care, Re-evaluation by your physician. Problem is new. Symptoms have improved. kdr
--- NOTE | 2019-12-26 12:46 | ER ---
Nurse's Notes [facility] Name: Marjan Fleming Age: 64 yrs Sex: Female : 1955 Arrival Date: 12/26/2019 Time: 07:29 Bed 8 Private MD: Diagnosis: Chest pain on breathing Presentation: 12/25 07:40 Chief complaint: Patient states: chest pain that began last night. Pt states, "it's ss probably nothing, but I would worry myself to just thinking about it maybe being a heart attack.". Coronavirus screen: Client denies travel out of the [place] in the last 14 days. Ebola Screen: Patient denies exposure to infectious person. Patient denies travel to an Ebola-affected area in the 21 days before illness onset. Initial Sepsis Screen: Does the patient meet any 2 criteria? No. Patient's initial sepsis screen is negative. Does the patient have a suspected source of infection? No. Patient's initial sepsis screen is negative. Risk Assessment: Do you want to hurt yourself or someone else? Patient reports no desire to harm self or others. Onset of symptoms was December 26, 2019. 07:40 Method Of Arrival: Ambulatory ss 07:40 Acuity: BLAYNE 3 ss Historical: - Allergies: 07:44 Bactrim DS; ss 07:44 metoclopramide HCl; ss 07:44 Stadol; ss - PMHx: 07:44 Anxiety; Chronic pain; Bipolar disorder; Atrial Fib; esophageal varices; COPD; ss Hepatitis; HIV; Hypertension; Migraines; Panic Attacks; - Immunization history:: Adult Immunizations up to date. - Social history:: Smoking status: Patient/guardian denies using tobacco, Stopped _ months ago 6. Screenin:51 Abuse screen: Denies threats or abuse. Denies injuries from another. Nutritional ph screening: No deficits noted. Tuberculosis screening: No symptoms or risk factors identified. Fall Risk None identified. Assessment: 08:48 General: Appears in no apparent distress. comfortable, well groomed, Behavior is calm, ph cooperative, appropriate for age, Denies fever, feeling ill. Pain: Complains of pain in anterior aspect of left upper chest Pain radiates to back of neck. Neuro: Level of Consciousness is awake, alert, obeys commands, Oriented to person, place, time, situation. Cardiovascular: Reports chest pain, nausea, Capillary refill < 3 seconds in bilateral fingers Patient's skin is warm and dry. Respiratory: Airway is patent Respiratory effort is even, unlabored. Derm: Skin is intact, is healthy with good turgor, Skin is pink, warm \\T\\ dry. Musculoskeletal: Circulation, motion, and sensation intact. Range of motion: intact in all extremities. 10:07 Reassessment: Patient appears in no apparent distress at this time. Patient and/or ph family updated on plan of care and expected duration. Pain level reassessed. Patient is alert, oriented x 3, equal unlabored respirations, skin warm/dry/pink. 11:30 Reassessment: Patient appears in no apparent distress at this time. Patient and/or ph family updated on plan of care and expected duration. Pain level reassessed. Patient is alert, oriented x 3, equal unlabored respirations, skin warm/dry/pink. 12:23 Reassessment: Patient appears in no apparent distress at this time. Patient and/or ph family updated on plan of care and expected duration. Pain level reassessed. Patient is alert, oriented x 3, equal unlabored respirations, skin warm/dry/pink. Pt resting quietly, awaiting results of repeat cardiac enzymes. Vital Signs: 07:40 BP 170 / 118; Pulse 67; Resp 19; Temp 98.4(TE); Pulse Ox 100% on R/A; Weight 99.34 kg; ss Height 5 ft. 4 in. (162.56 cm); Pain 8/10; 08:52 BP 179 / 91; Pulse 63; Resp 18; Pulse Ox 95% on R/A; Pain 7/10; ph 10:07 BP 168 / 87; Pulse 64; Resp 18; Pulse Ox 96% on R/A; ph 11:42 BP 119 / 67; Pulse 58; Resp 18; Pulse Ox 95% ; sv 12:24 BP 110 / 68; Pulse 66; Resp 18; Pulse Ox 95% on R/A; ph 13:30 BP 148 / 78; Pulse 67; Resp 18; Temp 98.1; Pulse Ox 96% on R/A; ph 07:40 Body Mass Index 37.59 (99.34 kg, 162.56 cm) ss 12:24 pt lying on side ph ED Course: 07:29 Patient arrived in ED. ds1 07:42 Triage completed. ss 07:44 Arm band placed on right wrist. ss 07:45 Joey Jung MD is Attending Physician. kdr 08:07 Solange Bennett, ASHLEY is Primary Nurse. ph 08:13 XRAY Chest (1 view) In Process Unspecified. EDMS 08:30 No provider procedures requiring assistance completed. Inserted saline lock: 24 gauge ph in right hand, using aseptic technique. Patient maintains SpO2 saturation greater than 95% on room air. 08:51 Patient has correct armband on for positive identification. Placed in gown. Bed in low ph position. Call light in reach. Side rails up X 1. mechanical field engineer on. Pulse ox on. NIBP on. Door closed. Noise minimized. Lights dimmed. Warm blanket given. 11:05 Chest Abd Pelvis Wo Con In Process Unspecified. EDMS 13:45 IV discontinued, intact, bleeding controlled, No redness/swelling at site. Pressure ph dressing applied. Administered Medications: 08:35 Drug: morphine 4 mg Route: IVP; Site: right hand; ph 08:45 Follow up: Response: No adverse reaction; Pain is decreased; RASS: Alert and Calm (0) ph 08:35 Drug: Zofran (Ondansetron) 4 mg Route: IVP; Site: right hand; ph 08:45 Follow up: Response: No adverse reaction ph 10:03 Drug: morphine 4 mg Route: IVP; Site: right hand; ph 10:15 Follow up: Response: No adverse reaction; Pain is decreased ph 12:26 Drug: Demerol 25 mg Route: IVP; Site: right hand; ph 12:45 Follow up: Response: No adverse reaction; Pain is decreased ph Outcome: 12:45 Discharge ordered by . kdr 13:45 Discharged to home ambulatory. ph 13:45 Condition: good 13:45 Discharge instructions given to patient, Instructed on discharge instructions, follow up and referral plans. medication usage, Demonstrated understanding of instructions, follow-up care, medications. 13:45 Prescriptions given X 2. 13:47 Patient left the ED. ph Signatures: Dispatcher [employer] EDMS Leyda Santamaria RN RN Joey Jung MD MD [facility] Lainey Monson ds1 Snadra Cadet RN RN Benntet, Solange, RN RN ph Corrections: (The following items were deleted from the chart) 12:26 07:44 Allergies: Demerol; ss ph
[2019-12-26 14:22] VITALS: BP 148/78; TEMP 98.1; O2SAT 96
[2019-12-27] MEDS ORDERED: HYDROCODONE/APAP 7.5/325 MG TAB ONE (14:19)
== END 2019-12-26 13:47 | disposition home or self-care (01) ==
LOC: ER 07:27
DX: R07.1 Chest pain on breathing (principal); I10 Essential (primary) hypertension; Z21 Asymptomatic human immunodeficiency virus [HIV] infection status; Z88.1 Allergy status to other antibiotic agents; Z88.5 Allergy status to narcotic agent; Z88.8 Allergy status to other drugs, medicaments and biological substances
CPT/HCPCS: 93005; 85025; 80048; 36415; 83735; 85610; 80076; 84484 ×2; 83880; 71250; 74176; 71045; J2175; J2405; 96374; 96375; 99285

== ENCOUNTER 2020-01-25 10:31 | Emergency (ER) | payer OTHER ==
--- OUTSIDE RECORDS SUMMARY | 2020-01-25 10:32 | XMS REPORT | Clinical Summary ---
:1955 Author Organization [facility] Address [address] [place] [address] Care Team Providers Name Role Phone Asked, [...] 01/22/2006 SHINGLES VACCINES (#1) 01/22/2006 INFLUENZA VACCINE 02/21/2020 Implants Implanted Type Area Managed Care Liaison Device Shelf Model / Identifier Expiration Serial / Date Lot Versa-Dial/Comp Ti Std Taper Used W/25mm Glenoid Basplate - [id number] N/A: N/A [employer] 01/22/2026 [id number] / Implanted: Qty: 1 on 10/19/2016 by Austin Bowles MD at [facility] IMPLANT / DEVICES [id number] 41mm Comprehensive Reverse Shoulder Glenosphere Ba - [id number] PM N/A: N/A [employer] 11/21/2023 [id number] / Implanted: Qty: 1 on 10/19/2016 by Austin Bowles MD at [facility] IMPLANT / DEVICES [id number] Arcom Xl 44-41 Std +3 Humeral Brg - [id number] Left: [employer] 07/20/2017 XL [id number] / Implanted: Qty: 1 on 10/19/2016 by Austin Bowles MD at [facility] IMPLANT Shoulder / DEVICES [id number] Humeral Tray With Locking Ring +5 Left: [employer] 03/31/2026 [id number] / Implanted: Qty: 1 on 10/19/2016 by Austin Bowles MD at [facility] Shoulder / [id number] Results Not on fileafter 01/24/2019 Advance Directives For more information, please contact: [phone] Type Date Recorded 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
--- OUTSIDE RECORDS SUMMARY | 2020-01-25 10:33 | XMS REPORT | Clinical Summary ---
:1955 Author Organization [facility] Address [address] [place] [id number] Care Team Providers Name Role Phone Rahman [...] 0 Active mouth 3 (three) times daily. emtricitabine-tenofovir Take one po 30 tablet 5 10/12/2019 Active alafen (DESCOVY) daily tabletIndications: Symptomatic HIV infection raltegravir (ISENTRESS) Take 1 tablet by 60 tablet 5 0 Active 400 mg mouth 2 (two) tabletIndications: times daily. Symptomatic HIV infection albuterol 90 0 09/04/2019 Active mcg/actuation inhaler cholestyramine 4 gram 0 07/27/2019 Active packet SERTraline 100 mg Take 2 tablets 60 tablet 2 01/14/2020 Active tabletIndications: Mild by mouth daily. depressed bipolar II disorder LORazepam 2 mg Take 1 tablet by 60 tablet 2 01/16/2020 Active tabletIndications: mouth 2 (two) Generalized anxiety times daily as disorder needed (anxiety). busPIRone 10 mg Take 2 tablets 180 tablet 2 01/14/2020 Active tabletIndications: by mouth 3 Generalized anxiety (three) times disorder daily. Active Problems Problem Noted Date Obesity (BMI 30-39.9) 05/10/2016 Anemia 02/22/2015 Hypovolemia due to hemorrhage 02/21/2015 Chest pain 02/21/2015 S/p reverse total shoulder arthroplasty 02/17/2015 Posttraumatic stress disorder 09/27/2012 Human immunodeficiency virus (HIV) disease 11/18/2010 Bipolar 2 disorder 11/18/2010 Chronic hepatitis C 11/18/2010 Hypertension 11/18/2010 Immunizations Name Administration Dates Next Due HEPATITIS [...] comments Father ESRD Coronary Heart Disease Father [place], late 60s? 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 SPECIALIST Pulse 72 07/09/2019 9:33 AM EMPLOYMENT TRAINING SPECIALIST Temperature 36.3 C (97.3 F) 04/18/2019 8:31 AM EMPLOYMENT TRAINING SPECIALIST Respiratory Rate 18 07/09/2019 9:33 AM EMPLOYMENT TRAINING SPECIALIST Oxygen Saturation 98% 06/27/2016 11:12 AM EMPLOYMENT TRAINING SPECIALIST Inhaled Oxygen Concentration - - Weight 95 kg (209 lb 6.4 oz) 07/09/2019 9:33 AM EMPLOYMENT TRAINING SPECIALIST Height 162.6 cm (5' 4") 07/09/2019 9:33 AM EMPLOYMENT TRAINING SPECIALIST Body Mass Index 35.94 07/09/2019 9:33 AM EMPLOYMENT TRAINING SPECIALIST Plan of Treatment Date Type Specialty Care Team Description 01/16/2020 Office Visit Infectious Disease [facility] [address] [place] [id number] Health Maintenance Due Date Last Done Comments COLON CANCER SCREENING ANNUAL 01/22/2006 FIT/FOBT COLON CANCER SCREENING FIT DNA 01/22/2006 EVERY 3 YEARS COLON CANCER SCREENING 01/22/2006 SIGMOIDOSCOPY EVERY 5 YEARS COLONOSCOPY 01/22/2006 Colorectal Cancer Screening 01/22/2006 Zoster Recombinant Vaccine 01/22/2006 (SHINGRIX) (1 of 2) PAP SMEAR 07/31/2006 08/01/2003 LUNG CANCER SCREEN: Recommended 01/22/2011 for age 55-80 with 30 + pack year history Breast Cancer Screening 09/06/2019 09/05/2018 (MAMMOGRAM) INFLUENZA VACCINE (#1) 2020 03/08/2017, 01/30/2014, 02/16/2012, Additional history exists DTaP,Tdap,and Td Vaccines (2 - Td) 11/18/2020 11/18/2010 Depression Screening 01/13/2021 01/14/2020, 01/14/2020 HEPATITIS C (HCV) SCREEN Completed 07/06/2010 PNEUMOCOCCAL 0-64 YEARS COMBINED Completed 01/30/2014, , SERIES 10/04/2001 Implants Implanted Type Area Grocery Packer Device Shelf Model / Identifier Expiration Serial / Lot Date Central Screw SHOULDER Left: [employer] 03/23/2024 [id number] / Implanted: Qty: 1 on 02/17/2015 by Roland Dixon MD at [facility] Shoulder [id number] / [id number] Mini Humeral Stem SHOULDER Left: [employer] 07/31/2024 [id number] / Implanted: Qty: 1 on 02/17/2015 by Roland Dixon MD at [facility] Shoulder [id number] / [id number] Fixed Locking Screw SHOULDER Left: [employer] [id number] / Implanted: Qty: 1 on 02/17/2015 by Roland Dixon MD at [facility] Shoulder [id number] / [id number] Glenosphere SHOULDER Left: [employer] 12/05/2024 [id number] / Implanted: Qty: 1 on 02/17/2015 by Roland Dixon MD at [facility] Shoulder [id number] / [id number] Fixed Locking Screw SHOULDER Left: [employer] 12/30/2024 [id number] / Implanted: Qty: 1 on 02/17/2015 by Roland Dixon MD at [facility] Shoulder [id number] / [id number] Fixed Locking Screw SHOULDER Left: [employer] 12/31/2024 [id number] / Implanted: Qty: 1 on 02/17/2015 by Roland Dixon MD at [facility] Shoulder [id number] / [id number] Humeral Tray With Locking Ring SHOULDER Left: [employer] 12/16/2024 [id number] / Implanted: Qty: 1 on 02/17/2015 by Roland Dixon MD at [facility] Shoulder [id number] / [id number] Glensphere Mini Baseplate SHOULDER Left: [employer] 01/21 [id number] / Implanted: Qty: 1 on 02/17/2015 by Roland Dixon MD at [facility] Shoulder [id number] / [id number] Humeral Bearing SHOULDER Left: [employer] 12/12/2019 XL- [id number] / Implanted: Qty: 1 on 02/17/2015 by Roland Dixon MD at [facility] Shoulder [id number] / [id number] Fixed Locking Scew SHOULDER Left: [employer] 12/11/2024 [id number] / Implanted: Qty: 1 on 02/17/2015 by Roland Dixon MD at [facility] Shoulder [id number] / [id number] Results Not on filefrom Last 3 Months Insurance Payer Benefit Plan / Subscriber ID Effective Phone Address T ype Group Dates [facility] [id number] 2019-Pre Medicar e Adv HEALTHCARE - HEALTHCARE DUAL sent H [place] MANAGED COMPLETE HMO MEDICARE [facility] [id number] 2019-Pre [address] Beh avioral [facility]AL BEHAVIORAL sent [id number] [employer] [place] [place] [address] [facility] [id number] 2019-Pre Me dicaid HEALTHCARE COMM PLUS sent PLAN - MANAGED MEDICAID [facility] [id number] 2019-Pre B ehavioral [place] - MANAGED BEHAVIORAL sent [facility] MEDICAID [facility] [place] ST[facility] Self 1955 [phone] [place] [address] Advance Directives Type Date Recorded Patient Brake Coupler Dinkey Explanati on Advance Directives and Living 01/20/2015 9:28 AM Will Power of Core Cutter And Reamer 01/20/2015 9:28 AM
--- OUTSIDE RECORDS SUMMARY | 2020-01-25 10:33 | XMS REPORT | Continuity of Care Document ---
:1955 Author Organization [facility] t Address [address] [place] [address] Care Team Providers Name Role Phone Asked, Pcp Primary Care Physician Unavailable Ronald DHILLON Attending Clinician DO YSL Attending Clinician Unavailable DO SYL Admitting Clinician Unavailable Problems Condition Condition Condition Status Onset Resolution Last Treating Co mments Source Name Details Category Date Date Treatment Clinician Date S/p S/p Disease Active [place] reverse reverse 30 Methodi 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:00: 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 Unstable Unstable Disease Active [facility] on reverse reverse 08-20 Methodi total [...] Date Quantity Comments Source Sex Assigned At [place] M ethodist Cigarettes smoked 2016-11-03 2016-11-03 Meza Yazdanism current (pack per 00:00:00 00:00:00 day) - Reported Alcohol intake 2016-11-03 2016-11-03 Current drinker Porsha on Yazdanism 00:00:00 00:00:00 of alcohol (finding) Alcohol Comment 2016-09-23 2016-09-23 renzo Corbin ethodi 00:00:00 00:00:00 Smoking Status Start Date Stop Date Source Current every day smoker 2016-11-03 00:00:00 [place] Yazdanism Medications Ordered Filled Start Stop Current Ordering [...] Planned Date Details Comments Source Future Scheduled 2020-02-21 INFLUENZA VACCINE [place] [facility] Test 00:00:00 [code = INFLUENZA VACCINE] Future Scheduled 2006-01-22 BREAST CANCER [facility] thodist Test 00:00:00 SCREENING [code = BREAST CANCER SCREENING] Future Scheduled 2006-01-22 COLONOSCOPY SCREENING [facility] [place] [facility] Test 00:00:00 [code = COLONOSCOPY SCREENING] Future Scheduled 2006-01-22 SHINGLES VACCINES [place] [facility] Test 00:00:00 (#1) [code = SHINGLES VACCINES (#1)] Future Scheduled 1977-01-22 Screening for [facility] thodist Test 00:00:00 malignant neoplasm of cervix (procedure) [code = 920969576] Encounters Start End Encounter Admission Attending Care Care Encounter Source Date/Time Date/Time Type Type Clinicians Facility Department ID 2020-01-16 2020-01-16 [facility] [id number] 00:00:00 00:00:00 [facility] [id number] [facility] [id number] Results Test Description Test Time Test [...] (qualifier value) Not Detected N URINALYSIS WITH [id number] 10:57:00 Test Item Value Reference Range Interpretation Comments Color (test code = UCOLR) Dk. Yellow Clarity (test code = UCLAR) Hazy Glucose (test code = UGLUC) NEGATIVE NEGATIVE N Bilirubin (test code = UBILI) NEGATIVE NEGATIVE N Ketones (test code = UKET) NEGATIVE NEGATIVE N Specific [place] (test code = 1.025 1.005-1.030 A USPGR) [...]
--- OUTSIDE RECORDS SUMMARY | 2020-01-25 10:33 | XMS REPORT | Summary of Care ---
:1955 Author Organization [facility] Address [address] [place] [id number] Care Team Providers Name Role Phone Rahman Primary Care Provider Reason for Visit Reason Comments Notification Appointment Encounter Details Date Type Department Care Team Description 01/16/2020 Telephone [facility] Infectious [facility], ALEJO Pal Notification; Diseases- [address] Appointment [facility] Clinics [id number] [address] Floor [address] [place], [place] [phone] Allergies Active Allergy Reactions Severity Noted Date Comments Metoclopramide Unknown - See comments 05/28/2016 Metoclopramide Hcl Anxiety 02/14/2015 Butorphanol Tartrate Hallucinations High 07/06/2010 Sulfamethoxazole Unknown - See comments 04/23/2016 Acetaminophen-Codeine Nausea and/or Vomiting 7 documented as of this encounter (statuses as of 01/18/2020) Medications Medication Sig Dispensed Refills Start Date [...] 3 Generalized anxiety (three) times disorder daily. documented as of this encounter (statuses as of 01/18/2020) Active Problems Problem Noted Date Obesity (BMI 30-39.9) 05/10/2016 Anemia 02/22/2015 Hypovolemia due to hemorrhage 02/21/2015 Chest pain 02/21/2015 S/p reverse total shoulder arthroplasty 02/17/2015 Posttraumatic stress disorder 09/27/2012 Human immunodeficiency virus (HIV) disease 11/18/2010 Bipolar 2 disorder 11/18/2010 Chronic hepatitis C 11/18/2010 Hypertension 11/18/2010 documented as of this encounter (statuses as of 01/18/2020) Immunizations Name Administration Dates Next Due HEPATITIS [...] Smokeless Tobacco: Former User Q uit: 09/29/2011 Comments: Smokes approx 1-2 cigarettes p er day when she smokes Alcohol Use Drinks/Week oz/Week Comments No 0 Standard drinks or equivalent 0.0 Sex Assigned at Date Recorded Not on file documented as of this encounter Last Filed Vital Signs Not on filedocumented in this encounter Miscellaneous Notes Telephone Encounter - Karen Reid RN - 01/18/2020 4:26 PM CDTAppointment is scheduled for 01/25/20 at 8:30am. Thank you elephone Encounter - Penny Peralta - 01/18/2020 2:08 PM CDTPatient has been contacted and rescheduled to a day that [facility] does Telemedicine. elephone Encounter - Karen Reid RN - 01/18/2020 9:52 AM CDTRouted to 6th floor [facility] staff for assistance with contacting patient to schedule a telemed visit instead of face to face, if possible Thank you elephone Encounter - Yamila Morrow - 01/16/2020 1:56 PM Natalie Akua Fleming is a 64 year old female Patient is calling and is scheduled for 01/22/20 at 11am and wants to make visit a telehealth visit. Please call. documented in this encounter Plan of Treatment Date Type Specialty Care Team Description 01/25/2020 Telemedicine Visit Infectious Disease [place], [place] Guerrero [address] [place] [id number] 03/17/2020 Telemedicine Visit Psychiatry Jeremiah Ayala MD [address] [place] [address] [phone] Health Maintenance Due Date Last Done Comments [...] YEARS COMBINED Completed 01/30/2014, , SERIES 10/04/2001 documented as of this encounter Implants Implanted Type Area Cover Creaser Device Shelf Model / Identifier Expiration Serial / Lot Date Central Screw SHOULDER Left: Biomet 03/23/2024 [id number] / Implanted: Qty: 1 on 02/17/2015 by Roland Dixon MD at [facility] Shoulder 3 [id number] / [id number] Mini Humeral Stem SHOULDER Left: Biomet 07/31/2024 [id number] / Implanted: Qty: 1 on 02/17/2015 by Roland Dixon MD at [facility] Shoulder [id number] / [id number] Fixed Locking Screw SHOULDER Left: Biomet [id number] / Implanted: Qty: 1 on 02/17/2015 by Roland Dixon MD at [facility] Shoulder 8 [id number] / [id number] [place]osphere SHOULDER Left: Biomet 12/05/2024 [id number] / Implanted: Qty: 1 on 02/17/2015 by Roland Dixon MD at [facility] Shoulder [id number] / [id number] Fixed Locking Screw SHOULDER Left: [employer]omet 12/30/2024 [id number] / Implanted: Qty: 1 on 02/17/2015 by Roland Dixon MD at [facility] Shoulder 0 [id number] / [id number] Fixed Locking Screw SHOULDER Left: [employer]omet 12/31/2024 [id number] / Implanted: Qty: 1 on 02/17/2015 by Roland Dixon MD at [facility] Shoulder 0 [id number] / [id number] Humeral Tray With Locking Ring SHOULDER Left: [employer]omet 12/16/2024 [id number] / Implanted: Qty: 1 on 02/17/2015 by Roland Dixon MD at [facility] Shoulder 8 [id number] / [id number] Gl[place]phere Mini Baseplate SHOULDER Left: Biomet 01/21 [id number] / Implanted: Qty: 1 on 02/17/2015 by Roland Dixon MD at [facility] Shoulder [id number] / [id number] Humeral Bearing SHOULDER Left: Biomet 12/12/2019 XL- [id number] / Implanted: Qty: 1 on 02/17/2015 by Roland Dixon MD at [facility] Shoulder 5 [id number] / [id number] Fixed Locking Scew SHOULDER Left: [employer]omet 12/11/2024 [id number] / Implanted: Qty: 1 on 02/17/2015 by Roland Dixon MD at [facility] Shoulder 8 [id number] / [id number] documented as of this encounter Results Not on filedocumented in this encounter Insurance Payer Benefit Plan / Subscriber ID Effective Phone Address T ype Group Dates [facility] [id number] 2019-Pre Medicar e Adv HEALTHCARE - HEALTHCARE DUAL sent [place] MANAGED COMPLETE HMO MEDICARE [facility] [id number] 2019-Pre [address] BOX Beh avioral BEHAVIORAL BEHAVIORAL sent [id number] [place] [address] [facility] [id number] 2019-Pre Me dicaid HEALTHCARE COMM PLUS sent PLAN - MANAGED MEDICAID [facility]UM [id number] 2019-Pre B ehavioral [place] - MANAGED BEHAVIORAL sent 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
[2020-01-25] MEDS ORDERED: FAMOTIDINE 20 MG/2 ML VIAL IV ONE ×2 (12:09)
[2020-01-25] MEDS ORDERED: NA CHLORIDE 0.9% 1,000 ML ONE (12:09)
[2020-01-25] MEDS ORDERED: ONDANSETRON 4 MG/2 ML VIAL ONE (12:09)
[2020-01-25] MEDS ORDERED: MORPHINE 4 MG/ML SYR ONE (12:09)
--- NOTE | 2020-01-25 12:11 | RAD REPORT ---
EXAM DESCRIPTION: RAD - Chest Single View - 01/25/2020 12:03 pm CLINICAL HISTORY: ABDOMINAL DISTENTION Chest pain. COMPARISON: Chest Single View dated 12/26/2019; Chest Pa And Lat (2 Views) dated 11/09/2019; Chest Pa A nd Lat (2 Views) dated 08/06/2019; Chest Single View dated 07/17/2019 FINDINGS: Portable technique limits examination quality. The lungs are grossly clear. The heart is mildly enlarged. Bilateral full shoulder arthroplasties. IMPRESSION: No acute intrathoracic process suspected.
[2020-01-25 13:05] LABS: Basophils % 0.5 % (0-1.3); Hematocrit 37.5 % (36.0-45.0); Lymphocytes % 16.2 % (15.3-44.8); MPV 8.1 fL (7.6-11.3); RBC Red Blood Cell Count 4.57 M/uL (3.86-4.86)
[2020-01-25 13:16] LABS: ALT/SGPT 40 U/L (12-78); AST/SGOT 38 U/L (15-37); Albumin 3.4 g/dL (3.4-5.0); Alkaline Phosphatase 86 U/L (45-117); BUN Blood Urea Nitrogen 21 mg/dL (7-18); Bicarbonate 28 mmol/L (21-32); Bilirubin Direct 0.1 mg/dL (0-0.2); Bilirubin Total 0.4 mg/dL (0.2-1.0); Glucose Level 99 mg/dL (74-106); Lipase 109 U/L (73-393); Magnesium 2.5 mg/dL (1.8-2.4); Sodium Level 142 mmol/L (136-145); Troponin (Emerg Dept Use Only) < 0.02 ng/mL (0.0-0.045)
--- NOTE | 2020-01-25 13:28 | RAD REPORT ---
EXAM DESCRIPTION: CT - Angio Aorta For Dissection - 01/25/2020 1:06 pm CLINICAL HISTORY: . Chest and abdominal pain COMPARISON: September and December 2019 TECHNIQUE: Computed tomography angiography of the chest, abdomen pelvis were obtained. 100 cc Isovue 370 was administered intravenously. Coronal and sagittal reconstruction were performed. MIP 3D reconstruction was performed All CT scans are performed using dose optimization technique as appropriate and may include automated exposure control or mA/KV adjustment according to patient size. FINDINGS: An aortic dissection is not seen. An aortic aneurysm is not displayed. The celiac, SMA and SCOTT are patent . A lung consolidation is not present. A pericardial effusion is not seen. A pleural effusion is not n oted. Moderate hiatal hernia Prominent caudate lobe of the liver. This can be seen with cirrhosis Spleen, pancreas and adrenals unremarkable. Bilateral renal cysts. No evidence of diverticulitis. No ascites. Mild atherosclerotic disease IMPRESSION: Negative for an aortic dissection.
[2020-01-25 13:46] LABS: Barbiturates NEGATIVE (NEGATIVE); Benzodiazepines POSITIVE (NEGATIVE); Cocaine NEGATIVE (NEGATIVE); METHAMPHETAM NEGATIVE (NEGATIVE); Methadone NEGATIVE (NEGATIVE); Opiates POSITIVE (NEGATIVE); Phencyclidine NEGATIVE (NEGATIVE); THC Cannibis NEGATIVE (NEGATIVE)
[2020-01-25] MEDS ORDERED: HYDROMORPHONE HCL 1 MG/ML INJ ONE (13:58)
[2020-01-25 14:01] LABS: Urine Blood NEGATIVE (NEG); Urine Glucose NEGATIVE (NEG); Urine Protein NEGATIVE (NEG); Urine pH 6.5 (5.0-7.0)
--- NOTE | 2020-01-25 14:48 | ER ---
Nurse's Notes [facility] Name: Marjan Fleming Age: 65 yrs Sex: Female : 1955 Arrival Date: 01/25/2020 Time: 10:33 Bed 15 Private MD: Diagnosis: Atrial fibrillation and flutter;Congenital hiatus hernia;Abdominal tenderness;Unspecified cirrhosis of liver;Bipolar disorder;Chest pain, unspecified Presentation: 01/24 10:43 Chief complaint: Patient states: "I went to see Dr. Rahman for a hiatal hernia ss yesterday and he said he doesn't work on those, but after he mashed on me it hurts up here (pointing to upper abdomen) and I'm bloated. He told me my veins are swollen and I might have liver cirrhosis and I needed to have blood work, but they haven't called me back today.". Coronavirus screen: Client denies travel out of the [place] in the last 14 days. At this time, the client does not indicate any symptoms associated with coronavirus-19. Ebola Screen: Patient denies exposure to infectious person. Patient denies travel to an Ebola-affected area in the 21 days before illness onset. Initial Sepsis Screen: Does the patient meet any 2 criteria? No. Patient's initial sepsis screen is negative. Does the patient have a suspected source of infection? No. Patient's initial sepsis screen is negative. Risk Assessment: Do you want to hurt yourself or someone else? Patient reports no desire to harm self or others. Onset of symptoms was January 24, 2020. 10:43 Method Of Arrival: Ambulatory ss 10:43 Acuity: BLAYNE 3 ss Triage Assessment: 10:45 General: Appears distressed, uncomfortable, obese, Behavior is cooperative, appropriate bp for age, anxious. Pain: Complains of pain in abdomen. EENT: No deficits noted. Neuro: No deficits noted. Cardiovascular: Rhythm is sinus rhythm. Respiratory: No deficits noted. GI: Abdomen is distended. : No signs and/or symptoms were reported regarding the genitourinary system. Derm: No deficits noted. Musculoskeletal: No deficits noted. Historical: - Allergies: 10:46 Bactrim DS; ss 10:46 Codeine; ss 10:46 metoclopramide HCl; ss 10:46 Stadol; ss - PMHx: 10:46 COPD; Chronic pain; Bipolar disorder; esophageal varices; Atrial Fib; Anxiety; ss Hepatitis; HIV; Hypertension; Migraines; Panic Attacks; - Immunization history:: Adult Immunizations up to date. - Social history:: Smoking status: Patient/guardian denies using tobacco, Stopped _ months ago 8 Patient/guardian denies using ETOH, quit using years ago. Used to drink heavily. - Family history:: not pertinent. Screenin:45 Abuse screen: Denies threats or abuse. Denies injuries from another. Nutritional bp screening: No deficits noted. Tuberculosis screening: No symptoms or risk factors identified. Fall Risk None identified. Assessment: 10:45 General: SEE TRIAGE NOTE. bp 12:00 Reassessment: UNABLE TO GAIN PIV ACCESS. CONTINUING TO ATTEMPT WITH OTHER STAFF. Pain: bp Pain radiates to abdomen. Pain: Pain began years ago. Neuro: Level of Consciousness is awake, alert, obeys commands, Oriented to person, place, time, situation, Appropriate for age. Cardiovascular: Rhythm is sinus rhythm. GI: Abdomen is tender to palpation X 4 quads. 12:40 Reassessment: PT TO CT. bp 13:17 Reassessment: PT RETURNED FROM CT, OOB TO BATHROOM. ss 14:15 Reassessment: ALL ORDERS COMPLETED, DISPO PENDING. S/S RELIEVED AT THIS TIME. bp 14:55 Reassessment: D/C ON HOLD FOR FINAL MEDICATION. bp Vital Signs: 10:43 BP 147 / 104; Pulse 67; Resp 17; Temp 97.8(TE); Pulse Ox 98% on R/A; Weight 99.79 kg; Height 5 ft. 4 in. (162.56 cm); Pain 9/10; 12:15 BP 140 / 100; Pulse 82; Resp 20; Pulse Ox 98% ; ss 13:15 BP 148 / 110; Pulse 68; Resp 16; Pulse Ox 98% ; ss 14:15 BP 114 / 69; Pulse 70; Resp 17; Pulse Ox 93% ; bp 10:43 Body Mass Index 37.76 (99.79 kg, 162.56 cm) ED Course: 10:33 Patient arrived in ED. as 10:45 Patient has correct armband on for positive identification. Placed in gown. Bed in low bp position. Call light in reach. Side rails up X2. classroom monitor on. Pulse ox on. NIBP on. 10:46 Triage completed. ss 10:46 Arm band placed on right wrist. ss 10:50 Carlos Eduardo Olivera, RN is Primary Nurse. bp 10:54 Justus Kolb MD is Attending Physician. thomas 12:03 XRAY Chest (1 view) In Process Unspecified. EDMS 12:38 Inserted saline lock: 22 gauge in right forearm, using aseptic technique. Blood bp collected. 13:06 CT Aorta for Dissection In Process Unspecified. EDMS 14:18 Rachele Vincent MD is Referral Physician. thomas 15:10 No provider procedures requiring assistance completed. IV discontinued, intact, ss bleeding controlled, No redness/swelling at site. Pressure dressing applied. Patient maintains SpO2 saturation greater than 95% on room air. Administered Medications: 12:39 Drug: NS 0.9% 1000 ml Route: IV; Rate: 125 ml/hr; Site: right forearm; bp 12:39 Drug: Pepcid 20 mg Route: IVP; Site: right forearm; bp 13:19 Follow up: Response: No adverse reaction ss 12:39 Drug: morphine 4 mg Route: IVP; Site: right forearm; bp 13:19 Follow up: Response: Pain is unchanged, physician notified ss 12:39 Drug: Zofran (Ondansetron) 4 mg Route: IVP; Site: right forearm; bp 13:19 Follow up: Response: No adverse reaction ss 13:49 Drug: Dilaudid 1 mg Route: IVP; Site: right forearm; bp 14:09 Follow up: Response: Pain is decreased bp 15:05 Drug: Eliquis 5 mg Route: PO; ss 15:11 Follow up: Response: Medication administered at discharge. ss Outcome: 14:19 Discharge ordered by . thomas 15:11 Discharged to home ambulatory. ss 15:11 Condition: good 15:11 Discharge instructions given to patient, Instructed on discharge instructions, follow up and referral plans. Demonstrated understanding of instructions, follow-up care, medications, Prescriptions given X 4. 15:12 Patient left the ED. ss Signatures: Dispatcher [employer] EDMS Justus Kolb MD MD cha Martinez, Amelia as Smirch, Shelby, RN RN Carlos Eduardo Olivera, ASHLEY RN bp Corrections: (The following items were deleted from the chart) 10:47 10:43 Social history: Smoking status: Patient denies any tobacco usage or history of. ssss
--- NOTE | 2020-01-25 14:48 | EDPHYS ---
Physician Documentation [facility] Name: Marjan Fleming Age: 65 yrs Sex: Female : 1955 Arrival Date: 01/25/2020 Time: 10:33 Bed 15 Private MD: SHEELA Physician Justus Kolb HPI: 01/24 11:40 This 65 yrs old Female presents to ER via Ambulatory with complaints of thomas Epigastric Pain, Abdominal Distention. 11:40 The patient or guardian reports chest pain that is located primarily in the substernal thomas area, epigastric area. Onset: 2 day(s) ago. The patient presents with abdominal pain in the upper abdomen. Onset: The symptoms/episode began/occurred 1 day(s) ago. The pain does not radiate. Associated signs and symptoms: none. Modifying factors: The symptoms are alleviated by nothing, the symptoms are aggravated by nothing. The chest pain is described as burning. Historical: - Allergies: 10:46 Bactrim DS; ss 10:46 Codeine; ss 10:46 metoclopramide HCl; ss 10:46 Stadol; ss - PMHx: 10:46 COPD; Chronic pain; Bipolar disorder; esophageal varices; Atrial Fib; Anxiety; ss Hepatitis; HIV; Hypertension; Migraines; Panic Attacks; - Immunization history:: Adult Immunizations up to date. - Social history:: Smoking status: Patient/guardian denies using tobacco, Stopped _ months ago 8 Patient/guardian denies using ETOH, quit using years ago. Used to drink heavily. - Family history:: not pertinent. ROS: 11:40 Constitutional: Negative for fever, chills, and weight loss, Eyes: Negative for injury, thomas pain, redness, and discharge, ENT: Negative for injury, pain, and discharge, Neck: Negative for injury, pain, and swelling, Abdomen/GI: Negative for abdominal pain, nausea, vomiting, diarrhea, and constipation, Back: Negative for injury and pain, : Negative for injury, bleeding, discharge, and swelling, MS/Extremity: Negative for injury and deformity, Skin: Negative for injury, rash, and discoloration, Neuro: Negative for headache, weakness, numbness, tingling, and seizure, Psych: Negative for depression, anxiety, suicide ideation, homicidal ideation, and hallucinations, Allergy/Immunology: Negative for hives, rash, and allergies, Endocrine: Negative for neck swelling, polydipsia, polyuria, polyphagia, and marked weight changes, Hematologic/Lymphatic: Negative for swollen nodes, abnormal bleeding, and unusual bruising. 11:40 Cardiovascular: Positive for chest pain, of the chest. 11:40 Respiratory: Negative for cough, shortness of breath. 11:40 Abdomen/GI: Positive for abdominal pain, abdominal distension, of the epigastric area, right upper quadrant and left upper quadrant. Exam: 11:40 Constitutional: This is a well developed, well nourished patient who is awake, alert, thomas and in no acute distress. Head/Face: Normocephalic, atraumatic. Eyes: Pupils equal round and reactive to light, extra-ocular motions intact. Lids and lashes normal. Conjunctiva and sclera are non-icteric and not injected. Cornea within normal limits. Periorbital areas with no swelling, redness, or edema. ENT: Nares patent. No nasal discharge, no septal abnormalities noted. Tympanic membranes are normal and external auditory canals are clear. Oropharynx with no redness, swelling, or masses, exudates, or evidence of obstruction, uvula midline. Mucous membranes moist. Neck: Trachea midline, no thyromegaly or masses palpated, and no cervical lymphadenopathy. Supple, full range of motion without nuchal rigidity, or vertebral point tenderness. No Meningismus. Chest/axilla: Normal chest wall appearance and motion. Nontender with no deformity. No lesions are appreciated. Cardiovascular: Regular rate and rhythm with a normal S1 and S2. No gallops, murmurs, or rubs. Normal PMI, no JVD. No pulse deficits. Respiratory: Lungs have equal breath sounds bilaterally, clear to auscultation and percussion. No rales, rhonchi or wheezes noted. No increased work of breathing, no retractions or nasal flaring. Back: No spinal tenderness. No costovertebral tenderness. Full range of motion. Female : Normal external genitalia. Skin: Warm, dry with normal turgor. Normal color with no rashes, no lesions, and no evidence of cellulitis. MS/ Extremity: Pulses equal, no cyanosis. Neurovascular intact. Full, normal range of motion. Neuro: Awake and alert, GCS 15, oriented to person, place, time, and situation. Cranial nerves II-XII grossly intact. Motor strength 5/5 in all extremities. Sensory grossly intact. Cerebellar exam normal. Normal gait. Psych: Awake, alert, with orientation to person, place and time. Behavior, mood, and affect are within normal limits. 11:40 Abdomen/GI: Inspection: abdomen appears normal, distension, Bowel sounds: normal, Palpation: moderate abdominal tenderness, in the epigastric area, right upper quadrant and left upper quadrant, Liver: no appreciated palpable abnormalities, Hernia: not appreciated. 11:40 Musculoskeletal/extremity: ROM: full active range of motion, full passive range of motion, Circulation is intact in all extremities. Sensation intact. Compartment Syndrome exam of affected extremity: is normal. Joints: All joints appear normal with full range of motion. DVT Exam: No signs of deep vein thrombosis. no pain, no swelling, no tenderness, negative Homans' sign noted on exam, no appreciated bluish discoloration, no erythema, no increased warmth. 14:21 ECG was reviewed by the Attending Physician. [facility] 14:58 ECG was reviewed by the Attending Physician. [facility] Vital Signs: 10:43 BP 147 / 104; Pulse 67; Resp 17; Temp 97.8(TE); Pulse Ox 98% on R/A; Weight 99.79 kg; ss Height 5 ft. 4 in. (162.56 cm); Pain 9/10; 12:15 BP 140 / 100; Pulse 82; Resp 20; Pulse Ox 98% ; ss 13:15 BP 148 / 110; Pulse 68; Resp 16; Pulse Ox 98% ; ss 14:15 BP 114 / 69; Pulse 70; Resp 17; Pulse Ox 93% ; bp 10:43 Body Mass Index 37.76 (99.79 kg, 162.56 cm) MDM: 10:54 Patient medically screened. thomas 11:42 Differential diagnosis: abnormal EKG, coronary artery disease chest wall pain, thomas congestive heart failure Cholelithiasis esophagitis, gastritis, gastroesophageal reflux disease (GERD), hiatal hernia, pancreatitis, peptic ulcer disease, pneumonia, pulmonary embolus, stable angina, thoracic aortic disection, unstable angina. HEART Score: History: Slightly Suspicious (0), ECG: Normal (0). The patient was not given aspirin in the Emergency Department. Not indicated due to patient's past medical history. The patient's deep vein thrombosis risk score was calculated as follows: Total Score: 0. This patient was found to be at low risk for a deep vein thrombosis by using the Well's assessment criteria. The patient's pulmonary embolism risk score was calculated as follows: Total Score: 0-2 points. This patient was found to be at low risk for a pulmonary embolism by using the Well's assessment criteria. MONI Risk Score: TOTAL SCORE = 0. Data reviewed: vital signs, nurses notes, lab test result(s), EKG, radiologic studies, CT scan, plain films. Data interpreted: telemetry monitor: rate is 67 beats/min, rhythm is regular, Pulse oximetry: on room air is 98 %. Test interpretation: by ED physician or midlevel provider: ECG, plain radiologic studies. 14:16 ED course: pt improved , all labs discussed, will dc with follow up. [facility] 14:36 Physician consultation: Per Crane MD was called at 14:40, and will see patient in [facility] office, eliquis 2.5 mg po bid, cont metroprolol. 14:57 Counseling: I had a detailed discussion with the patient and/or guardian regarding: the [facility] historical points, exam findings, and any diagnostic results supporting the discharge/admit diagnosis, lab results, radiology results, the need for outpatient follow up, for definitive care, a soft metals engraver hand, a registered nurse surgical services. Medication response: Zofran markedly relieved the patient's nausea. 01/24 11:39 Order name: Basic Metabolic Panel; Complete Time: 13:27 [facility] 01/24 11:39 Order name: CBC with Diff; Complete Time: 13:27 [facility] 01/24 11:39 Order name: LFT's; Complete Time: 13:27 [facility] 01/24 11:39 Order name: Magnesium; Complete Time: 13:27 [facility] 01/24 11:39 Order name: Troponin (emerg Dept Use Only); Complete Time: 13:27 [facility] 01/24 11:39 Order name: Lipase; Complete Time: 13:27 [facility] 01/24 11:39 Order name: XRAY Chest (1 view); Complete Time: 13:27 [facility] 01/24 11:39 Order name: AMMONIA; Complete Time: 13:27 [facility] 01/24 11:39 Order name: CT Aorta for Dissection; Complete Time: 14:13 [facility] 01/24 11:39 Order name: UDS; Complete Time: 14:13 [facility] 01/24 13:49 Order name: CREATININE WHOLE BLOOD; Complete Time: 14:13 EDMS 01/24 13:52 Order name: Urine Dipstick--Ancillary (enter results); Complete Time: 14:13 eb 01/24 11:39 Order name: EKG; Complete Time: 11:39 thomas 01/24 11:39 Order name: Cardiac monitoring; Complete Time: 12:40 thomas 01/24 11:39 Order name: EKG - Nurse/Tech; Complete Time: 12:40 thomas 01/24 11:39 Order name: IV Saline Lock; Complete Time: 12:40 [facility] 01/24 11:39 Order name: Labs collected and sent; Complete Time: 12:40 [facility] 01/24 11:39 Order name: O2 Per Protocol; Complete Time: 12:40 [facility] 01/24 11:39 Order name: O2 Sat Monitoring; Complete Time: 12:40 [facility] 01/24 11:39 Order name: Urine Dipstick-Ancillary (obtain specimen); Complete Time: 13:44 thomas 01/24 14:30 Order name: EKG; Complete Time: 14:47 bp 01/24 14:30 Order name: EKG - Nurse/Tech; Complete Time: 14:55 bp EC:21 Rate is 78 beats/min. Rhythm is irregularly irregular. QRS [place] is Normal. SD interval thomas is normal. QRS interval is normal. QT interval is normal. No Q waves. T waves are Normal. No ST changes noted. Clinical impression: Atrial Fibrillation and No evidence of ischemia. Interpreted by me. 14:58 Rate is 64 beats/min. Rhythm is regular. QRS [place] is Normal. SD interval is normal. QRS thomas interval is normal. QT interval is normal. No Q waves. T waves are Normal. No ST changes noted. Clinical impression: NSR w/ Non-specific ST/T Changes and No evidence of ischemia. Interpreted by me. Reviewed by me. Administered Medications: 12:39 Drug: NS 0.9% 1000 ml Route: IV; Rate: 125 ml/hr; Site: right forearm; bp 12:39 Drug: Pepcid 20 mg Route: IVP; Site: right forearm; bp 13:19 Follow up: Response: No adverse reaction ss 12:39 Drug: morphine 4 mg Route: IVP; Site: right forearm; bp 13:19 Follow up: Response: Pain is unchanged, physician notified ss 12:39 Drug: Zofran (Ondansetron) 4 mg Route: IVP; Site: right forearm; bp 13:19 Follow up: Response: No adverse reaction ss 13:49 Drug: Dilaudid 1 mg Route: IVP; Site: right forearm; bp 14:09 Follow up: Response: Pain is decreased bp 15:05 Drug: Eliquis 5 mg Route: PO; ss 15:11 Follow up: Response: Medication administered at discharge. Disposition: 14:57 Critical Care:. [facility] Disposition: 01/25/20 14:19 Discharged to Home. Impression: Atrial fibrillation and flutter, Congenital hiatus hernia, Abdominal tenderness, Unspecified cirrhosis of liver, Bipolar disorder, Chest pain, unspecified. - Condition is Stable. - Discharge Instructions: Atrial Fibrillation, Nonspecific Chest Pain, Hiatal Hernia, Bipolar Disorder, Abdominal Pain, Adult, [id number]-jn-[id number], Nonspecific Chest Pain, [id number]. - Prescriptions for Bentyl 20 mg Oral Tablet - take 1 tablet by ORAL route every 6 hours As needed; 20 tablet. Zofran 4 mg Oral Tablet - take 1 tablet by ORAL route every 12 hours As needed; 20 tablet. Eliquis 2.5 mg Oral tablet - take 1 tablet by ORAL route 2 times per day; 30 tablet. Nexium 20 mg Oral Capsule - take 1 capsule by ORAL route once daily; 20 capsule. - Medication Reconciliation Form, Thank You Letter, Antibiotic Education, Prescription Opioid Use form. - Follow up: Private Physician; When: 2 - 3 days; Reason: Recheck today's complaints, Continuance of care, Re-evaluation by your physician. Follow up: Rachele Vincent MD; When: 2 - 3 days; Reason: Recheck today's complaints, Continuance of care, Re-evaluation by your physician. - Problem is new. - Symptoms have improved. Critical care time excluding procedures: 14:57 Critical care time: Bedside Care: 20 minutes, Consultation: 10 minutes. Total time: 30 thomas minutes Signatures: Dispatcher [employer] EDJustus Perrin MD MD cha Smirch, Shelby, ASHLEY RN Carlos Eduardo Sprigner RN RN bp Corrections: (The following items were deleted from the chart) 10:47 10:43 Social history: Smoking status: Patient denies any tobacco usage or history of. ssss 14:20 14:19 01/25/2020 14:19 Discharged to Home. Impression: Atrial fibrillation and flutter; thomas Congenital hiatus hernia; Abdominal tenderness; Unspecified cirrhosis of liver; Bipolar disorder. Condition is Stable. Forms are Medication Reconciliation Form, Thank You Letter, Antibiotic Education, Prescription Opioid Use. Follow up: Private Physician; When: 2 - 3 days; Reason: Recheck today's complaints, Continuance of care, Re-evaluation by your physician. Follow up: Rachele Vincent; When: 2 - 3 days; Reason: Recheck today's complaints, Continuance of care, Re-evaluation by your physician. Problem is new. Symptoms have improved. thomas 15:12 14:20 01/25/2020 14:19 Discharged to Home. Impression: Atrial fibrillation and flutter; ss Congenital hiatus hernia; Abdominal tenderness; Unspecified cirrhosis of liver; Bipolar disorder; Chest pain, unspecified. Condition is Stable. Discharge Instructions: Atrial Fibrillation, Hiatal Hernia, Bipolar Disorder, Abdominal Pain, Adult, Lzzk-iw-[id number]. Prescriptions for Bentyl 20 mg Oral Tablet - take 1 tablet by ORAL route every 6 hours As needed; 20 tablet, Pepcid 20 mg Oral Tablet - take 1 tablet by ORAL route every 12 hours for 10 days; 20 tablet, Zofran 4 mg Oral Tablet - take 1 tablet by ORAL route every 12 hours As needed; 20 tablet. and Forms are Medication Reconciliation Form, Thank You Letter, Antibiotic Education, Prescription Opioid Use. Follow up: Private Physician; When: 2 - 3 days; Reason: Recheck today's complaints, Continuance of care, Re-evaluation by your physician. Follow up: Rachele Vincent; When: 2 - 3 days; Reason: Recheck today's complaints, Continuance of care, Re-evaluation by your physician. Problem is new. Symptoms have improved. thomas
[2020-01-25] MEDS ORDERED: APIXABAN 5 MG TABLET PO ONE (15:00)
[2020-01-26 21:56] VITALS: TEMP 97.8
[2020-01-26 22:00] VITALS: BP 114/69; O2SAT 93
--- NOTE | 2020-01-27 06:55 | EKG ---
Test Date: 2020-01-25 Test Time: 12:09:21 Search Engine Optimization Manager: GRAY MEASUREMENT RESULTS: Intervals: Rate: 78 DE: QRSD: 88 QT: 408 QTc: 465 [place]: P: DE: QRS: 43 T: -10 INTERPRETIVE STATEMENTS: Atrial fibrillation Nonspecific ST and T wave abnormality, probably digitalis effect Abnormal ECG Compared to ECG 12/26/2019 07:54:19 ST (T wave) deviation now present Sinus rhythm no longer present Left ventricular hypertrophy no longer present Electronically Signed On 01-27-20 06:53:42 CDT by Per Crane
--- NOTE | 2020-01-29 20:06 | EKG ---
Test Date: 2020-01-25 Test Time: 14:47:18 Coat Room Attendant: GRETCHEN MEASUREMENT RESULTS: Intervals: Rate: 64 IA: 192 QRSD: 90 QT: 468 QTc: 482 [place]: P: 70 IA: 192 QRS: 31 T: 22 INTERPRETIVE STATEMENTS: Normal sinus rhythm Nonspecific T wave abnormality Prolonged QT Abnormal ECG Compared to ECG 01/25/2020 12:09:21 T-wave abnormality now present Prolonged QT interval now present Atrial fibrillation no longer present ST (T wave) deviation no longer present Electronically Signed On 01-29-20 19:59:56 CDT by Per Crane
== END 2020-01-25 15:12 | disposition home or self-care (01) ==
LOC: ER 10:31
DX: I48.91 Unspecified atrial fibrillation (principal); I48.92 Unspecified atrial flutter; Q40.1 Congenital hiatus hernia; R10.816 Epigastric abdominal tenderness; K74.60 Unspecified cirrhosis of liver; F31.9 Bipolar disorder, unspecified; I10 Essential (primary) hypertension; Z21 Asymptomatic human immunodeficiency virus [HIV] infection status; Z88.1 Allergy status to other antibiotic agents; Z88.5 Allergy status to narcotic agent; Z88.8 Allergy status to other drugs, medicaments and biological substances
CPT/HCPCS: 93005; 85025; 80048; 36415; 82140; 83735; 82565; 80076; 80307 ×8; 81003; 84484; 83690; 71275; 74175; 71045; 96375; 96374; 99285; Q9967; J1170; J7030; J2405

== ENCOUNTER 2020-01-28 02:49 | Emergency (ER) | payer OTHER ==
--- OUTSIDE RECORDS SUMMARY | 2020-01-28 02:51 | XMS REPORT | Clinical Summary ---
:1955 Author Organization [facility] Address [address] [place] [address] Care Team Providers Name Role Phone Asked, [...] INFLUENZA VACCINE 02/21/2020 Implants Implanted Type Area Cable Rigger Device Shelf Model / Identifier Expiration Serial / Date Lot Versa-Dial/Comp Ti Std Taper Used W/25mm Glenoid Basplate - [id number] N/A: N/A [employer] 01/22/2026 [id number] / Implanted: Qty: 1 on 10/19/2016 by Austin Bowles MD at [facility] IMPLANT / DEVICES [id number] 41mm Comprehensive Reverse Shoulder Glenosphere Ba - [id number] I PM N/A: N/A [employer] 11/21/2023 [id number] / Implanted: Qty: 1 on 10/19/2016 by Austin Bowles MD at [facility] IMPLANT / DEVICES [id number] Arcom Xl 44-41 Std +3 Humeral Brg - [id number] Left: [employer] 07/20/2017 XL [id number] / Implanted: Qty: 1 on 10/19/2016 by Austin Bowles MD at [facility] IMPLANT Shoulder / DEVICES [id number] Humeral Tray With Locking Ring +5 Left: [employer] 03/31/2026 [id number] / Implanted: Qty: 1 on 10/19/2016 by Austin Bowles MD at [facility] Shoulder / [id number] Results Not on fileafter 01/27/2019 Advance Directives For more information, please contact: [phone] Type Date Recorded 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
--- OUTSIDE RECORDS SUMMARY | 2020-01-28 02:52 | XMS REPORT | Continuity of Care Document ---
:[address] [facility] t Address [address] [place] [address] Care Team Providers Name Role Phone Asked, Pcp Primary Care Physician Unavailable Caridad SALGUERO Attending Clinician Ronald DHILLON Attending Clinician DO SYL Attending Clinician Unavailable DO SYL Admitting Clinician Unavailable Problems Condition Condition Condition Status Onset Resolution Last Treating Co mments Source Name Details Category Date Date Treatment Clinician Date S/p S/p Disease Active [place] reverse reverse 10-19 [facility] 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:00: 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 Unstable Unstable Disease Active [facility] on reverse reverse 08-20 Methodi 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:00: 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 Allergies, Adverse Reactions, Alerts Allergy Allergy Status Severity Reaction(s) Onset Inactive Treating Comm ents Source Name Type Date Date Clinician Metoclop Propensi Active Rashida n ramide ty to 504 [facility] Hcl adverse 00:00: st reaction 00 s to drug Codeine Propensi Active [place] ty to 3-10 [facility] adverse 00:00: st reaction 00 s to drug Family History Family Member Diagnosis Comments Start Date Stop Date Source Natural father Hypertension [place] Natural father Kidney disease Rashida soares Mosque Social History Social Habit Start Date Stop Date Quantity Comments Source Sex Assigned At [facility] ethodist Cigarettes smoked 2016-11-03 2016-11-03 Derrick Mosque current (pack per 00:00:00 00:00:00 day) - Reported Alcohol intake 2016-11-03 2016-11-03 Current drinker Porsha on Mosque 00:00:00 00:00:00 of alcohol (finding) Alcohol Comment 2016-09-23 2016-09-23 renzo Corbin ethodist 00:00:00 00:00:00 Smoking Status Start Date Stop Date Source Current every day smoker 2016-11-03 00:00:00 Klio [place]on Mosque Medications Ordered Filled Start Stop Current Ordering [...] 10mg Take 10 mg [place] (NORVASC) 601 by mouth. Metho di 10 mg 20:31: st tablet 31 LORAZepam Yes 2mg Take 2 mg [place] (ATIVAN) 2 601 by mouth. Meth jason MG tablet 20:31: st 31 ARIPiprazol Yes 5mg Take 5 mg [place] (ABILIFY) 6-01 by mouth. Met hodi 5 MG tablet 20:31: st 31 sertraline Yes 200mg QD 200 mg [place] (ZOLOFT) 25 6-01 every Methodi MG tablet 20:31: morning. st 31 triamterene Yes 1{tbl} QD Take 1 [place] -hydrochlor 6-01 tablet by Met daylini othiazid 20:31: mouth st (MAXZIDE-25 31 daily. ) 37.5-25 mg per tablet esomeprazol Yes 40mg Q.5D Take 40 mg [place] e (NexIUM) 6-01 by mouth 2 Met hodi 40 MG 20:31: (two) st capsule 31 times a day. clobetasol Yes Q.5D Apply [place] (TEMOVATE) 6-01 topically Meth jason 0.05 % 20:31: 2 [...] Future Scheduled 2020-02-21 INFLUENZA VACCINE [place] Test 00:00:00 [code = INFLUENZA VACCINE] Future Scheduled 2006-01-[address] [facility] thodist Test 00:00:00 SCREENING [code = BREAST CANCER SCREENING] Future Scheduled 2006-01-22 COLONOSCOPY SCREENING elena Mosque Test 00:00:00 [code = COLONOSCOPY SCREENING] Future Scheduled 2006-01-22 SHINGLES VACCINES [place] Test 00:00:00 (#1) [code = SHINGLES VACCINES (#1)] Future Scheduled 1977-01-[address] [facility] thodist Test 00:00:00 malignant neoplasm of cervix (procedure) [code = 985946841] Encounters Start End Encounter Admission Attending Care Care Encounter Source Date/Time Date/Time Type Type Clinicians Facility Department ID 2020-01-26 2020-01-26 Emergency [facility] [id number] 10:03:00 13:05:00 Erikahoward Sweta [id number] [place] [id number] [place] [id number] 2020-01-16 2020-01-16 [facility] [id number] 00:00:00 00:00:00 [facility] [id number] [facility] [id number] Results Test Description Test Time Test [...] (qualifier value) Not Detected N URINALYSIS WITH [id number] 10:57:00 Test Item Value Reference Range Interpretation Comments Color (test code = UCOLR) Dk. Yellow Clarity (test code = UCLAR) Hazy Glucose (test code = UGLUC) NEGATIVE NEGATIVE N Bilirubin (test code = UBILI) NEGATIVE NEGATIVE N Ketones (test code = UKET) NEGATIVE NEGATIVE N Specific [place] (test code = 1.025 1.005-1.030 A USPGR) [...]
--- OUTSIDE RECORDS SUMMARY | 2020-01-28 02:53 | XMS REPORT | Summary of Care ---
:1955 Author Organization [facility] - [facility] Address [address] [place] [id number] Care Team Providers Name Role Phone Rahman Primary Care Provider Reason for Referral (JOE) Status Reason Specialty Diagnoses / Referred By Referred To Procedures Contact Contact New Request IM-GASTROENTEROLO Diagnoses History of abdominal hernia Chronic abdominal pain Caridad, Cynise, GY Procedures Discharge Follow-Up: Specialty Service IM-GASTROENTEROLOGY; 3-5 Days SEWER BRICKLAYER [id number] [facility] [address] [place] [address] Radiology Services (STAT) Status Reason Specialty Diagnoses / Referred By Referred To Procedures Contact Contact New Request Diagnostic Diagnoses Abdominal pain, unspecified abdominal location History of abdominal hernia Caridad, Cynise, Radiology Procedures XR ABDOMEN ACUTE SERIES SEWER BRICKLAYER [address] [facility] [address] [place] [address] Reason for Visit Reason Comments Other "hernia pain" Auth/Cert Status Reason Specialty Diagnoses / Referred By Referred To Procedures Contact Contact Emergency Medicine [facility]ency Dept [address] [place] [address] Fax: Encounter Details Date Type Department Care Team Description 01/26/2020 Emergency ADC-Emergency Caridad, Cynise, Chronic abd ominal pain (Primary Dx); Department SEWER BRICKLAYER Abdominal pain, unspecified abdominal lo cation; [address] [facility] [address] LEONARDO Brewer History of abdominal hernia; Drive [address] History of gastroesophageal reflux (GERD ) [place] [address] [place], [place] [phone] [address] [phone] Allergies Active Allergy Reactions Severity Noted Date Comments Metoclopramide Unknown - See comments 05/28/2016 Metoclopramide Hcl Anxiety 02/14/2015 Butorphanol Tartrate Hallucinations High 07/06/2010 Sulfamethoxazole Unknown - See comments 04/23/2016 Acetaminophen-Codeine Nausea and/or Vomiting 7 documented as of this encounter (statuses as of 01/26/2020) Medications Medication Sig Dispensed Refills Start Date [...] RESPIMAT) 1.25 mcg/actuation Mist cloNIDine 0.1 mg Take 0.1 mg by 0 Active tablet mouth 3 (three) times daily. emtricitabine-tenofovi Take one po 30 tablet 5 10/12/2019 Active r alafen (DESCOVY) daily tabletIndications: Symptomatic HIV infection raltegravir Take 1 tablet 60 tablet 5 10/12/2019 Act bruno (ISENTRESS) 400 mg by mouth 2 tabletIndications: (two) times Symptomatic HIV daily. infection albuterol 90 0 09/04/2019 Active mcg/actuation inhaler cholestyramine 4 gram 0 07/27/2019 Active packet SERTraline 100 mg Take 2 tablets 60 tablet 2 01/14/2020 Active tabletIndications: by mouth daily. Mild depressed bipolar II disorder LORazepam 2 mg Take 1 tablet 60 tablet 2 01/16/2020 Active tabletIndications: by mouth 2 Generalized anxiety (two) times disorder daily as needed (anxiety). busPIRone 10 mg Take 2 tablets 180 tablet 2 01/14/2020 Active tabletIndications: by mouth 3 Generalized anxiety (three) times disorder daily. traMADoL 50 mg Take 1 tablet 20 tablet 0 01/26/2020 02/02/2020 Active tabletIndications: by mouth every chronic pain 8 (eight) hours as needed for Pain (scale 1-3) or Pain (scale 4-6) for up to 7 days. Indications: chronic pain proMETHazine 12.5 mg Take 1 tablet 9 tablet 0 01/26/2020 Active tabletIndications: by mouth every History of abdominal 4 (four) hours hernia, Chronic as needed for abdominal pain Nausea and Vomiting (N/V). 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 Weight loss may also help to decrease your symptoms. Make sure to keep yourself hydrated with fluids. AttachmentsThe following attachments cannot be sent through Care Everywhere. Abdominal Pain, Adult (Turkmen)Pain, Complementary Care for (Turkmen)documented in this encounter ED Notes Reba Nino RN - 01/26/2020 9:56 AM CDTPatient states last week she had an upper GI preformed and was told she has large esophogeal veins and needed to have her hernia repaired and "this cirrhosis thing tended to". Patient states her hernia is causing her pain and trouble swallowing. documented in this encounter Miscellaneous Notes ED Nurse Note - Alicia Estrada RN - 01/26/2020 1:04 PM CDTPt given printed and verbal discharge instructions regarding Abdominal pain, encouraged hydration, Prescriptions provided Phenergan Tramadol Discussed ibuprofen and to take with food to avoid GI distress. Discussed tramadol/phenergan/Tylenol # 3 side affects and to avoid driving/operating machinery/or engaging in activities requiring alertness while taking. Pt verbalized understanding of instructions, pt awake alert oriented, resp reg unlabored, skin w/d, color appropriate for race, moves all ext well,pt encouraged to follow up with pcp and GI in three days Advised to seek medical attention for new/prolonged/worsening of symptoms, Symptoms increase pain, any signs of infection, fever over 100.4 No adverse reaction to meds given in ER noted upon discharge PIV d'cd, dressing to site, catheter in tact. Awake, alert oriented, resp reg unlabored, skin w/d, pt leaving amb with steady gait, in no apparent distress, documented in this encounter Plan of Treatment Date Type Specialty Care Team Description 03/17/2020 Telemedicine Visit Psychiatry Jeremiah Ayala MD [address] [place] [address] [phone] Health Maintenance Due Date Last Done [...] of this encounter Implants Implanted Type Area Bridge Rigger Device Shelf Model / Identifier Expiration Serial / Lot Date Central Screw SHOULDER Left: Biomet 03/23/2024 [id number] / Implanted: Qty: 1 on 02/17/2015 by Roland Dixon MD at [facility] Shoulder [id number] / [id number] Mini Humeral Stem SHOULDER Left: Biomet 07/31/2024 [id number] / Implanted: Qty: 1 on 02/17/2015 by Roland Dixon MD at [facility] Shoulder [id number] / [id number] Fixed Locking Screw SHOULDER Left: Biomet [id number] / Implanted: Qty: 1 on 02/17/2015 by Roland Dixon MD at [facility] Shoulder [id number] / [id number] Glenosphere SHOULDER Left: Biomet 12/05/2024 [id number] / Implanted: Qty: 1 on 02/17/2015 by Roland Dixon MD at [facility] Shoulder [id number] / [id number] Fixed Locking Screw SHOULDER Left: [employer]omet 12/30/2024 [id number] / Implanted: Qty: 1 on 02/17/2015 by Rolnad Dixon MD at [facility] Shoulder [id number] / [id number] Fixed Locking Screw SHOULDER Left: [employer]omet 12/31/2024 [id number] / Implanted: Qty: 1 on 02/17/2015 by Roland Dixon MD at [facility] Shoulder [id number] / [id number] Humeral Tray With Locking Ring SHOULDER Left: [employer]omet 12/16/2024 [id number] / Implanted: Qty: 1 on 02/17/2015 by Roland Dixon MD at [facility] Shoulder [id number] / [id number] Glensphere Mini Baseplate SHOULDER Left: Biomet 01/21 [id number] / Implanted: Qty: 1 on 02/17/2015 by Roland Dixon MD at [facility] Shoulder [id number] / [id number] Humeral Bearing SHOULDER Left: Biomet 12/12/2019 XL- [id number] / Implanted: Qty: 1 on 02/17/2015 by Roland Dixon MD at [facility] Shoulder [id number] / [id number] Fixed Locking Scew SHOULDER Left: [employer]omet 12/11/2024 [id number] / Implanted: Qty: 1 on 02/17/2015 by Roland Dixon MD at [facility] Shoulder 8 [id number] / [id number] documented as of this encounter Procedures Procedure Name Priority Date/Time Associated Diagnosis Comme nts XR ABDOMEN ACUTE STAT 01/26/2020 11:21 AM Abdominal pain, R esults for this SERIES CDT unspecified procedure are i n abdominal locati on the results History of abdominal section . hernia CBC WITH DIFF STAT 01/26/2020 10:28 AM Abdominal pain, Resu lts for this CDT unspecified procedure are i n abdominal location the resul ts section. BASIC METABOLIC STAT 01/26/2020 10:28 AM Abdominal pain, Re sults for this PANEL (NA, K, CL, CDT unspecified procedure are in CO2, GLUCOSE, BUN, abdominal location the results CREATININE, CA) section. HEPATIC FUNCTION STAT 01/26/2020 10:28 AM Abdominal pain, R esults for this PANEL (70057) CDT unspecified procedure are in (ALB,T.PRO,BILI abdominal location the re sults T,BU/BC,ALT,AST,ALK section. PHOS) LIPASE STAT 01/26/2020 10:28 AM Abdominal pain, Resul ts for this CDT unspecified procedure are i n abdominal location the resul ts section. NOTICE OF PRIVACY Routine 01/26/2020 9:50 AM PRACTICES CDT CONSENT/REFUSAL FOR Routine 01/26/2020 9:49 AM DIAGNOSIS AND CDT TREATMENT documented in this encounter Results XR ABDOMEN ACUTE SERIES (01/26/2020 11:21 AM CDT) Specimen Impressions Performed At PACS/VR/DOSE Nonobstructive bowel gas pattern. Obscuration of the left costophrenic ang le may be due to overlying structures versus a small pleural effusi on with adjacent consolidation. Preliminary Report Dictated by Resident: Momo Watkins I, Zen Hamilton MD., have reviewed this study and agree with the above report. Narrative Performed At EXAM: XR ABDOMEN ACUTE SERIES PACS/VR/DOSE HISTORY: 65 years-old Female presenting with eval for obstruction COMPARISON: No prior studies available f or comparison. FINDINGS: The lungs are clear. Airspace opacities in the retroca rdiac region may be atelectasis. There may be a small left-sided pleural e ffusion. No effusion on the right. The heart is normal in siz e. Hiatal hernia is seen. The bowel gas pattern is non-obstructive . Prior cholecystectomy. No evidence of free intra-abdominal air is present. No ab normal calcifications are identified. The most inferior aspect of the pelvis was excluded in the [id number]. 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 Procedure Note [facility], Radiant Results Inft User - 2019 12:43 PM CDT EXAM: XR ABDOMEN ACUTE SERIES HISTORY: 65 years-old Female presenting with eval for obstruction COMPARISON: No prior studies available f or comparison. FINDINGS: The lungs are clear. Airspace opacities in the retrocardiac region may be atelectasis. There may be a small left-s ided pleural effusion. No effusion on the right. The heart is normal in siz e. Hiatal hernia is seen. The bowel gas pattern is non-obstructive . Prior cholecystectomy. No evidence of free intra-abdominal air is present. No abnormal calcifications are identified. The most inferior aspect of the pelvis was excluded in the [id number]. 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 IMPRESSION Nonobstructive bowel gas pattern. Obscuration of the left costophrenic ang le may be due to overlying structures versus a small pleural effusi on with adjacent consolidation. Preliminary Report Dictated by Resident: Momo Watkins I, Zen Hamilton MD., have reviewed th is study and agree with the above report. Performing Organization Address City/State/Zipcode Phone Number PACS/VR/DOSE Lipase Serum (01/26/2020 10:28 AM CDT) [facility] LIPASE 109 0 - 220 U/L [facility] Specimen Blood - VENOUS Performing Organization Address City/[facility]/Zipcode Phone Number [facility] CLIA: [id number] [place] [address] Basic Metabolic Panel (NA, K, CL, CO2, GLUCOSE, BUN, CREATININE, CA) (01/26/2020 10:28 AM CDT) Pathologist [facility] nature NA 139 135 - 145 [facility] mmol/L [facility] K 3.4 (L) 3.5 - 5.0 [facility] mmol/L [facility] CL 103 98 - 108 mmol/L [facility] CO2 TOTAL 28 23 - 31 mmol/L [facility] AGAP 8 2 - 16 [facility] BUN 24 (H) 7 - 23 mg/dL [facility] GLUCOSE 98 70 - 110 mg/dL [facility] CREATININE 0.97 0.50 - 1.04 [facility] mg/dL [facility] CALCIUM 8.3 (L) 8.6 - 10.6 [facility] mg/dL [facility] eGFR Calculation 57.8 mL/min/1.73m2 [facility] ([facility] [place]) eGFR Calculation 70.1 mL/min/1.73m2 [facility] () [facility] Specimen Blood - VENOUS Narrative Performed At Association of Glomerular Filtration Rate (GFR) [facility] and Staging of Kidney Disease* + + +- + | GFR (mL/min/1.73 m2) | With Kidney Damage | Without Kidney Damage + + +- + | >90 | Stage one | Normal + + +- + | 60-89 | Stage two | Decreased GFR + + +- + | 30-59 | Stage three | Stage three + + +- + | 15-29 | Stage four | Stage four + + +- + | <15 (or dialysis) | Stage five | Stage five + + +- + *Each stage assumes the associated GFR level has been in effect for at least three months. Stages 1 to 5, with or without kidney disease, indicate chronic kidney disease. Notes: Determination of stages one and two (with eGFR >59mL/min/1.73 m2) requires estimation of kidney damage for at least three months as defined by structural or functional abnormalities of the kidney, manifested by either: Pathological abnormalities or Markers of kidney damage (including abnormalities in the composition of the blood or urine or abnormalities in imaging tests). Performing Organization Address City/State/Zipcode Phone Number [facility] CLIA: [id number] [place], [place] [id number] LABORATORY [address] Hepatic Function Panel (ALB, T.PRO, BILI T, BU/BC, ALT, AST, ALK PHOS) (01/26/2020 10:28 AM CDT) Pathologist Sig nature TOTAL BILI 0.4 0.1 - 1.1 mg/dL [facility] BILI UNCON 0.4 0.1 - 1.1 mg/dL [facility] BILI CONJ 0.0 0.0 - 0.3 mg/dL [facility] T PROTEIN 6.9 6.3 - 8.2 g/dL [facility] ALBUMIN 3.9 3.5 - 5.0 g/dL [facility] ALK PHOS 79 34 - 122 U/L [facility] ALTv 31 5 - 35 U/L [facility] AST(SGOT) 34 13 - 40 U/L [facility] Specimen Blood - VENOUS Performing Organization Address City/State/Zipcode Phone Number [facility] CLIA: [id number] [place] [address] CBC with Differential (01/26/2020 10:28 AM CDT) Pathologist [facility] WBC 6.30 4.30 - 11.10 [facility] 10*3/L [facility] RBC 4.01 3.93 - 5.25 [facility] 10*6/L [facility] HGB 10.6 (L) 11.6 - 15.0 [facility] g/dL [facility] HCT 35.3 (L) 35.7 - 45.2 % [facility] MCV 88.0 80.6 - 95.5 fL [facility] MCH 26.4 25.9 - 32.8 pg [facility] MCHC 30.0 (L) 31.6 - 35.1 [facility] g/dL [facility] RDW-SD 52.6 (H) 39.0 - 49.9 fL [facility] RDW-CV 16.2 (H) 12.0 - 15.5 % [facility] PLT 192 166 - 358 [facility] 10*3/L [facility] MPV 9.5 9.5 - 12.9 fL [facility] NRBC/100 WBC 0.0 0.0 - 10.0 /100 [facility] WBCs [facility] NRBC x10^3 <0.01 10*3/L [facility] GRAN MAT (NEUT) % 66.9 % [facility] IMM GRAN % 0.60 % [facility] LYMPH % 20.0 % [facility] MONO % 11.4 % [facility] EOS % 0.8 % [facility] BASO % 0.3 % [facility] GRAN MAT x10^3(ANC) 4.21 1.88 - 7.09 [facility] 10*3/uL [facility] IMM GRAN x10^3 0.04 0.00 - 0.06 [facility] 10*3/uL [facility] LYMPH x10^3 1.26 (L) 1.32 - 3.29 [facility] 10*3/uL [facility] MONO x10^3 0.72 0.33 - 0.92 [facility] 10*3/uL [facility] EOS x10^3 0.05 0.03 - 0.39 [facility] 10*3/uL [facility] BASO x10^3 <0.03 0.01 - 0.07 [facility] 10*3/uL [facility] Specimen Blood - VENOUS Performing Organization Address City/State/Zipcode Phone Number [facility] CLIA: [id number] [place] [address] documented in this encounter Visit Diagnoses Diagnosis Chronic abdominal pain - Primary Abdominal pain, unspecified site Abdominal pain, unspecified abdominal lo cation History of abdominal hernia History of gastroesophageal reflux (GERD ) Personal history of other diseases of di gestive system documented in this encounter Administered Medications Medication Order MAR Action Action Date Dose Rate Site famotidine (PEPCID (PF)) injection Given 01/26/2020 10:43 AM CDT 20 mg 20 mg 20 mg, Slow IV Push, ONCE, 1 dose, 01/26/20 at 1130, JOE maalox:diphenhydrAMINE:lidocaine 2 % viscous Given 0 10:44 AM CDT 5 mL 1:1:1 (FIRST-MOUTHWASH BLM) oral suspension 15 mL 15 mL, Oral, ONCE, 1 dose, 01/26/20 at 1130, Routine morpHINE injection 4 mg Given 01/26/2020 11:12 AM CDT 4 mg 4 mg, Slow IV Push, ONCE, 1 dose, 01/26/20 at 1130, STAT ondansetron (ZOFRAN (PF)) injection 4 mg Given 01/26/2020 10:41 AM CDT 4 mg 4 mg, Slow IV Push, ONCE, 1 dose, 01/26/20 at 1130, JOE documented in this encounter Insurance Payer Benefit Plan / Subscriber ID Effective Phone Address [employer] 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
[2020-01-28] MEDS ORDERED: NA CHLORIDE 0.9% 1,000 ML ONE (03:23)
[2020-01-28] MEDS ORDERED: FENTANYL CITR 100 MCG/2 ML ONE (03:23)
[2020-01-28] MEDS ORDERED: ONDANSETRON 4 MG/2 ML VIAL ONE (03:31)
[2020-01-28] MEDS ORDERED: MORPHINE 4 MG/ML SYR ONE ×2 (03:31→04:59)
[2020-01-28 03:41] LABS: Basophils % 0.4 % (0-1.3); Hematocrit 33.2 % (36.0-45.0); Lymphocytes % 17.4 % (15.3-44.8); MPV 8.1 fL (7.6-11.3); Protime INR 0.98; RBC Red Blood Cell Count 4.01 M/uL (3.86-4.86)
[2020-01-28 03:56] LABS: ALT/SGPT 31 U/L (12-78); AST/SGOT 27 U/L (15-37); Albumin 3.1 g/dL (3.4-5.0); Alkaline Phosphatase 76 U/L (45-117); BUN Blood Urea Nitrogen 20 mg/dL (7-18); Bicarbonate 30 mmol/L (21-32); Bilirubin Direct < 0.1 mg/dL (0-0.2); Bilirubin Total 0.3 mg/dL (0.2-1.0); Glucose Level 116 mg/dL (74-106); Lipase 108 U/L (73-393); Magnesium 2.2 mg/dL (1.8-2.4); NT PRO-BNP 3508 pg/mL (<125); Potassium 3.8 mmol/L (3.5-5.1); Protein, Total 7.2 g/dL (6.4-8.2); Sodium Level 144 mmol/L (136-145); Troponin (Emerg Dept Use Only) < 0.02 ng/mL (0.0-0.045)
[2020-01-28] MEDS ORDERED: IPRATROPIUM BROM 0.5MG/2.5ML ONE (04:10)
[2020-01-28] MEDS ORDERED: ALBUTEROL 2.5 MG/3 ML NEB SOL ONE (04:11)
--- NOTE | 2020-01-28 05:13 | ER ---
Nurse's Notes [facility] Name: Marjan Fleming Age: 65 yrs Sex: Female : 1955 Arrival Date: 01/28/2020 Time: 02:50 Bed 6 Private MD: Lele Rahman H Diagnosis: Hiatal hernia Presentation: 01/27 02:58 Chief complaint: Patient states: i have upper abdominal pain with distention and mg2 breathing difficulty, was here 2 days ago for this and was advised to look for a surgeon for follow-up. Coronavirus screen: Client denies travel out of the [place] in the last 14 days. At this time, the client does not indicate any symptoms associated with coronavirus-19. Ebola Screen: No symptoms or risks identified at this time. Initial Sepsis Screen: Does the patient meet any 2 criteria? No. Patient's initial sepsis screen is negative. Does the patient have a suspected source of infection? No. Patient's initial sepsis screen is negative. Risk Assessment: Do you want to hurt yourself or someone else? Patient reports no desire to harm self or others. Onset of symptoms was January 27, 2020. 02:58 Method Of Arrival: Wheelchair mg2 02:58 Acuity: BLAYNE 3 mg2 Triage Assessment: 03:03 General: Appears uncomfortable, Behavior is calm, cooperative. Pain: Complains of pain mg2 in abdomen Pain does not radiate. Pain currently is 10 out of 10 on a pain scale. Quality of pain is described as aching, Pain began gradually, Is intermittent. EENT: No signs and/or symptoms were reported regarding the EENT system. Neuro: Level of Consciousness is awake, alert, obeys commands, Oriented to person, place, time, situation. Cardiovascular: Capillary refill < 3 seconds Patient's skin is warm and dry. Respiratory: Reports shortness of breath. Respiratory: Onset: The symptoms/episode began/occurred gradually, the patient has mild shortness of breath. GI: Reports upper abdominal pain. : No signs and/or symptoms were reported regarding the genitourinary system. Derm: Skin is intact, is healthy with good turgor, Skin is pink, warm \T\ dry. normal. Musculoskeletal: Circulation, motion, and sensation intact. Capillary refill < 3 seconds. Historical: - Allergies: 03:02 Bactrim DS; mg2 03:02 metoclopramide HCl; mg2 03:02 Stadol; mg2 03:43 Codeine; mt2 - Home Meds: 03:02 BuSpar 10 mg BID Oral [Active]; Descovy 200-25 mg Oral tab 1 tab once daily [Active]; mg2 Hydralazine Oral [Active]; lisinopril 40 mg Oral tab 1 tab twice a day [Active]; Metformin Oral [Active]; metoprolol tartrate 100 mg Oral tab 1 tab 2 times per day [Active]; Norvasc Oral [Active]; raltegravir Oral 1 tab 2 times per day [Active]; sertraline Oral [Active]; - PMHx: 03:02 Anxiety; Atrial Fib; Bipolar disorder; Chronic pain; COPD; esophageal varices; mg2 Hepatitis; HIV; Hypertension; Migraines; Panic Attacks; - PSHx: 03:02 Appendectomy; Cholecystectomy; mg2 - Immunization history:: Flu vaccine status is unknown. - Social history:: Smoking status: Patient denies any tobacco usage or history of. Patient/guardian denies using alcohol, street drugs, IV drugs. Screenin:04 Abuse screen: Denies threats or abuse. Denies injuries from another. Nutritional mg2 screening: No deficits noted. Tuberculosis screening: No symptoms or risk factors identified. Fall Risk IV access (20 points). Assessment: 03:04 General: see triage notes. mg2 03:19 Cardiovascular: Rhythm is atrial fibrillation. Respiratory: Airway is patent Breath mt2 sounds with wheezes bilaterally. 03:20 Pain: Complains of pain in diaphragm Pain currently is 10 out of 10 on a pain scale. mt2 Neuro: No deficits noted. Respiratory: Respiratory effort is labored. GI: Abdomen is distended, Bowel sounds present in right lower quadrant and left lower quadrant. : No deficits noted. EENT: No deficits noted. Derm: No deficits noted. Musculoskeletal: No deficits noted. 04:51 Reassessment: Patient and/or family updated on plan of care and expected duration. Pain mt2 level reassessed. Patient is alert, oriented x 3, equal unlabored respirations, skin warm/dry/pink. General: Appears uncomfortable, Behavior is appropriate for age. Pain: Complains of pain in chest Pain currently is 10 out of 10 on a pain scale. Vital Signs: 02:58 BP 173 / 70; Pulse 82; Resp 20; Pulse Ox 98% on R/A; Weight 99.79 kg; Height 5 ft. 4 mg2 in. (162.56 cm); Pain 10/10; 03:26 Temp 98.6(O); mg2 04:51 BP 169 / 91; Pulse 73; Resp 16; Pulse Ox 98% ; Pain 10/10; mt2 02:58 Body Mass Index 37.76 (99.79 kg, 162.56 cm) mg2 ED Course: 02:50 Patient arrived in ED. am2 02:51 Lele Rahman DO is Private Physician. am2 02:51 Ruth Chaidez, ASHLEY is Primary Nurse. mt2 02:51 Marcos Lema MD is Attending Physician. tw4 03:00 Triage completed. mg2 03:02 Arm band placed on. mg2 03:04 Patient has correct armband on for positive identification. mg2 03:04 No provider procedures requiring assistance completed. mg2 03:19 by laboratory animal caretaker. Inserted saline lock: 20 gauge in left ,using aseptic technique. SHOULDER mt2 Blood collected. 03:34 XRAY Chest (1 view) In Process Unspecified. EDMS 04:36 Abdomen In Process Unspecified. EDMS 05:12 Lele Rahman DO is Referral Physician. tw4 05:24 IV discontinued, intact, bleeding controlled, No redness/swelling at site. Pressure mt2 dressing applied. Administered Medications: 03:24 Drug: NS 0.9% 1000 ml {Note: left shoulder.} Route: IV; Rate: 1 bolus; Site: Other; mg2 05:24 Follow up: Response: No adverse reaction; IV Status: Completed infusion mt2 03:25 Not Given (Patient Refused): fentaNYL (PF) 25 mcg IVP once; RASS on ADMIN: Combtv4, mg2 Very Agttd3, Agttd2, Rstlss1, AlertClm0, Drwsy-1, Lt Sdtn-2, Mod Sdtn-3, Dp Sdtn-4, UnArsble-5 03:25 Drug: morphine 4 mg {Note: left shoulder.} Route: IVP; Site: Other; mg2 03:52 Follow up: Response: No adverse reaction; Pain is unchanged, physician notified mt2 03:26 Drug: Zofran (Ondansetron) 4 mg {Note: left shoulder.} Route: IVP; Site: Other; mg2 03:52 Follow up: Response: No adverse reaction; Nausea is decreased mt2 04:03 Drug: DuoNeb (3:1) (2.5 mg - 0.5 mg) 3 ml Route: Nebulizer; mt2 04:50 Follow up: Response: No adverse reaction; Wheezing diminished mt2 04:52 Drug: morphine 4 mg {Note: left shoulder.} Route: IVP; Site: Other; mg2 05:24 Follow up: Response: No adverse reaction; Pain is decreased mt2 Outcome: 05:13 Discharge ordered by . tw4 05:19 Discharged to home via wheelchair. mt2 05:19 Condition: stable 05:19 Condition: stable 05:19 Discharge instructions given to patient, Instructed on discharge instructions, follow up and referral plans. medication usage, Demonstrated understanding of instructions, follow-up care, wound care, Prescriptions given X 1. 05:25 Patient left the ED. mt2 Signatures: Dispatcher [employer] EDMS Danielle Ferrer am2 Marcos Lema MD MD tw4 Isaias Whitaker, RN RN mg2 Ruth Chaidez RN RN mt2
--- NOTE | 2020-01-28 05:13 | EDPHYS ---
Physician Documentation [facility] Name: Marjan Fleming Age: 65 yrs Sex: Female : 1955 Arrival Date: 01/28/2020 Time: 02:50 Bed 6 Private MD: Lele Rahman H ED Physician Marcos Lema HPI: 01/27 06:53 This 65 yrs old Female presents to ER via Wheelchair with complaints of tw4 hernia, Breathing Difficulty. 06:53 The patient presents with abdominal pain. Onset: The symptoms/episode began/occurred tw4 today. The symptoms do not radiate. Associated signs and symptoms: none. Severity of pain: At its worst the pain was moderate in the emergency department the pain is unchanged. The patient has experienced a previous episode. The patient has been recently seen by a physician: The patient has been recently seen at the [facility] Emergency Department, this week. Historical: - Allergies: 03:02 Bactrim DS; mg2 03:02 metoclopramide HCl; mg2 03:02 Stadol; mg2 03:43 Codeine; mt2 - Home Meds: 03:02 BuSpar 10 mg BID Oral [Active]; Descovy 200-25 mg Oral tab 1 tab once daily [Active]; mg2 Hydralazine Oral [Active]; lisinopril 40 mg Oral tab 1 tab twice a day [Active]; Metformin Oral [Active]; metoprolol tartrate 100 mg Oral tab 1 tab 2 times per day [Active]; Norvasc Oral [Active]; raltegravir Oral 1 tab 2 times per day [Active]; sertraline Oral [Active]; - PMHx: 03:02 Anxiety; Atrial Fib; Bipolar disorder; Chronic pain; COPD; esophageal varices; mg2 Hepatitis; HIV; Hypertension; Migraines; Panic Attacks; - PSHx: 03:02 Appendectomy; Cholecystectomy; mg2 - Immunization history:: Flu vaccine status is unknown. - Social history:: Smoking status: Patient denies any tobacco usage or history of. Patient/guardian denies using alcohol, street drugs, IV drugs. ROS: 06:53 Constitutional: Negative for fever, chills, and weight loss, Eyes: Negative for injury, tw4 pain, redness, and discharge, Cardiovascular: Negative for chest pain, palpitations, and edema. 06:53 Back: Negative for injury and pain, MS/Extremity: Negative for injury and deformity, Skin: Negative for injury, rash, and discoloration, Neuro: Negative for headache, weakness, numbness, tingling, and seizure. 06:53 Respiratory: Positive for shortness of breath. 06:53 Abdomen/GI: Positive for abdominal pain. Exam: 06:53 Head/Face: Normocephalic, atraumatic. Eyes: Pupils equal round and reactive to light, tw4 extra-ocular motions intact. Lids and lashes normal. Conjunctiva and sclera are non-icteric and not injected. Cornea within normal limits. Periorbital areas with no swelling, redness, or edema. Chest/axilla: Normal chest wall appearance and motion. Nontender with no deformity. No lesions are appreciated. Cardiovascular: Regular rate and rhythm with a normal S1 and S2. No gallops, murmurs, or rubs. Normal PMI, no JVD. No pulse deficits. Respiratory: Lungs have equal breath sounds bilaterally, clear to auscultation and percussion. No rales, rhonchi or wheezes noted. No increased work of breathing, no retractions or nasal flaring. 06:53 MS/ Extremity: Pulses equal, no cyanosis. Neurovascular intact. Full, normal range of motion. Neuro: Awake and alert, GCS 15, oriented to person, place, time, and situation. Cranial nerves II-XII grossly intact. Motor strength 5/5 in all extremities. Sensory grossly intact. Cerebellar exam normal. Normal gait. 06:53 Constitutional: The patient appears in obvious distress, mildly distressed. 06:53 Abdomen/GI: Inspection: abdomen appears normal, Bowel sounds: diminished, Palpation: moderate abdominal tenderness, in the epigastric area. Vital Signs: 02:58 BP 173 / 70; Pulse 82; Resp 20; Pulse Ox 98% on R/A; Weight 99.79 kg; Height 5 ft. 4 mg2 in. (162.56 cm); Pain 10/10; 03:26 Temp 98.6(O); mg2 04:51 BP 169 / 91; Pulse 73; Resp 16; Pulse Ox 98% ; Pain 10/10; mt2 02:58 Body Mass Index 37.76 (99.79 kg, 162.56 cm) mg2 MDM: 02:51 Patient medically screened. tw4 06:53 Differential diagnosis: acute coronary syndrome, gastritis, gastroesophageal reflux tw4 disease, pancreatitis, Peptic Ulcer Disease, Perf. Duodenal Ulcer, Perf. Gastric Ulcer, Peritonitis. Data reviewed: vital signs, nurses notes. Data reviewed: lab test result(s), cardiac enzymes, CBC, electrolytes, hepatic panel, EKG, radiologic studies, CT scan, plain films. Data interpreted: Pulse oximetry: Interpretation: normal. Counseling: I had a detailed discussion with the patient and/or guardian regarding: the historical points, exam findings, and any diagnostic results supporting the discharge/admit diagnosis, lab results, radiology results. Medication response: morphine relieved the patient's pain. Symptoms have resolved. Response to treatment: and as a result, I will discharge patient. Special discussion: Based on the patient's Hx, exam, and Dx evaluation, there is no indication for emergent surgery or inpatient Tx. It is understood by the patient/guardian that if the Sx's persist or worsen they need to return immediately for re-evaluation. I discussed with the patient/guardian in detail that at this point there is no indication for admission to the hospital. It is understood, however, that if the symptoms persist or worsen the patient needs to return immediately for re-evaluation. 01/27 03:03 Order name: Basic Metabolic Panel; Complete Time: 05:03 01/27 05:03 Interpretation: Normal except: CL 111; BUN 20; GLUC 116; GFR 64. 01/27 03:03 Order name: CBC with Diff; Complete Time: 05:03 01/27 05:03 Interpretation: Normal except: HGB 10.5; HCT 33.2; MCHC 31.7; MCH 26.3; PLT 173; RDW tw4 16.4. 01/27 03:03 Order name: LFT's; Complete Time: 05:03 01/27 05:03 Interpretation: Normal except: ALB 3.1; GLOB 4.1; A/G 0.8. 01/27 03:03 Order name: Magnesium; Complete Time: 05:03 01/27 05:03 Interpretation: Within normal limits: MG 2.2. 01/27 03:03 Order name: NT PRO-BNP; Complete Time: 05:03 01/27 05:03 Interpretation: Normal except: NT PRO-BNP 3508. tw4 01/27 03:03 Order name: PT-INR; Complete Time: 05:03 4 01/27 03:03 Order name: Troponin (emerg Dept Use Only); Complete Time: 05:03 4 01/27 05:03 Interpretation: Within normal limits: TROPED < 0.02. tw4 01/27 03:03 Order name: XRAY Chest (1 view) tw4 01/27 03:04 Order name: Lipase; Complete Time: 05:03 4 01/27 04:08 Order name: Abdomen EDMS 01/27 03:03 Order name: EKG; Complete Time: 03:04 01/27 03:03 Order name: Cardiac monitoring; Complete Time: 03:04 01/27 03:03 Order name: EKG - Nurse/Tech; Complete Time: 03:04 4 01/27 03:03 Order name: IV Saline Lock; Complete Time: 03:04 4 01/27 03:03 Order name: Labs collected and sent; Complete Time: 03:05 01/27 03:03 Order name: O2 Per Protocol; Complete Time: 03:05 01/27 03:03 Order name: O2 Sat Monitoring; Complete Time: 03:05 tw4 EC:53 Rate is 74 beats/min. Rhythm is regular. QRS [place] is Normal. CA interval is normal. QRS tw4 interval is normal. QT interval is normal. No Q waves. T waves are Inverted in leads III, V3, V4, V5. No ST changes noted. Clinical impression: Abnormal EKG without significant change. Interpreted by me. Reviewed by me. Administered Medications: 03:24 Drug: NS 0.9% 1000 ml {Note: left shoulder.} Route: IV; Rate: 1 bolus; Site: Other; mg2 05:24 Follow up: Response: No adverse reaction; IV Status: Completed infusion mt2 03:25 Not Given (Patient Refused): fentaNYL (PF) 25 mcg IVP once; RASS on ADMIN: Combtv4, mg2 Very Agttd3, Agttd2, Rstlss1, AlertClm0, Drwsy-1, Lt Sdtn-2, Mod Sdtn-3, Dp Sdtn-4, UnArsble-5 03:25 Drug: morphine 4 mg {Note: left shoulder.} Route: IVP; Site: Other; mg2 03:52 Follow up: Response: No adverse reaction; Pain is unchanged, physician notified mt2 03:26 Drug: Zofran (Ondansetron) 4 mg {Note: left shoulder.} Route: IVP; Site: Other; mg2 03:52 Follow up: Response: No adverse reaction; Nausea is decreased mt2 04:03 Drug: DuoNeb (3:1) (2.5 mg - 0.5 mg) 3 ml Route: Nebulizer; mt2 04:50 Follow up: Response: No adverse reaction; Wheezing diminished mt2 04:52 Drug: morphine 4 mg {Note: left shoulder.} Route: IVP; Site: Other; mg2 05:24 Follow up: Response: No adverse reaction; Pain is decreased mt2 Disposition: 01/28/20 05:13 Discharged to Home. Impression: Hiatal hernia. - Condition is Stable. - Discharge Instructions: Hiatal Hernia, Hernia, Adult, [id number]. - Prescriptions for Carafate 1 gram Oral Tablet - take 1 tablet by ORAL route 4 times per day take on an empty stomach, beginning on waking and last dose at bedtime; 100 tablet. - Medication Reconciliation Form, Thank You Letter, Antibiotic Education, Prescription Opioid Use form. - Follow up: Lele Rahman DO; When: Upon discharge from the Emergency Department; Reason: Recheck today's complaints, Continuance of care, Re-evaluation by your physician. - Problem is an ongoing problem. - Symptoms have improved. Signatures: Dispatcher [employer] [facility] Marcos Lema MD MD tw4 Isaias Whitaker, RN RN mg2 Ruth Chaidez RN RN mt2 Corrections: (The following items were deleted from the chart) 04:08 03:53 Abdomen W/ Con+CT.RAD.BRZ ordered. [facility] 05:25 05:13 01/28/2020 05:13 Discharged to Home. Impression: Hiatal hernia. Condition is mt2 Stable. Forms are Medication Reconciliation Form, Thank You Letter, Antibiotic Education, Prescription Opioid Use. Follow up: Lele Rahman; When: Upon discharge from the Emergency Department; Reason: Recheck today's complaints, Continuance of care, Re-evaluation by your physician. Problem is an ongoing problem. Symptoms have improved. tw4
--- NOTE | 2020-01-28 08:23 | RAD REPORT ---
EXAM DESCRIPTION: RAD - Chest Single View - 01/28/2020 3:37 am CLINICAL HISTORY: ABDOMINAL DISTENTION COMPARISON: January 25, 2020 TECHNIQUE: AP portable chest image was obtained 01/28/2020 3:37 am . FINDINGS: Low lung volumes and large body habitus limit examination. No new lung parenchymal process identified. Cardiac silhouette is enlarged. Vasculature within normal limits for the exam limitation s. No measurable pleural effusion and no pneumothorax. No acute bone finding. Bilateral shoulder join t prostheses in place. No acute aortic findings suspected. IMPRESSION: Limited portable study without acute cardiopulmonary finding. Early infiltrates or early failure could be masked by exam limitations.
--- NOTE | 2020-01-28 12:32 | RAD REPORT ---
EXAM DESCRIPTION: CT - Abdomen Pelvis W Contrast - 01/28/2020 5:10 am CLINICAL HISTORY: ABD PAIN COMPARISON: 01/25/2020 TECHNIQUE: CT of the abdomen and pelvis performed following IV administration of iodinated contras t.. FINDINGS: Lung Bases: Minimal bibasilar dependent atelectasis. Bones: Mild endplate spondylosis and facet arthropathy. Abdomen: Liver: The liver has normal size and density. No intrahepatic biliary dilatation. Gallbladder: No calcified gallstones. Spleen, Pancreas, and Adrenal Glands: The spleen, pancreas, and adrenal glands are unremarkable. Kidneys: No hydronephrosis or obstructing calculus. Bilateral benign appearing renal cysts. Nonobst ructing right nephrolithiasis. Vasculature: Aortoiliac atherosclerosis. IVC is unremarkable. The portal vein is patent. The proxim al visceral and renal arteries are patent. Stomach: Large hiatal hernia. Other: No free intraperitoneal air. No free fluid or lymphadenopathy. Pelvis: Bladder: Urinary bladder is unremarkable. Bowel: No dilated loops of large or small bowel. Appendix: Not identified. Pelvis: Uterus is not enlarged. IMPRESSION: 1. No acute inflammatory or obstructive process identified. 2. Large hiatal hernia. This exam was performed according to our departmental dose-optimization program, which includes autom ated exposure control, adjustment of the mA and/or kV according to patient size and/or use of iterati ve reconstruction technique. Electronically signed by: Hoang Harvey 01/28/2020 4:53 AM CDT Due to temporary technical issues with the PACS/Fluency reporting system, reports are being signed by the in house radiologist without review as a courtesy to ensure prompt reporting. The interpreting r adiologist is fully responsible for the content of the report.
[2020-01-28 22:03] VITALS: O2SAT 98
[2020-01-28 22:04] VITALS: TEMP 98.6
[2020-01-28 22:05] VITALS: BP 169/91
--- NOTE | 2020-01-29 05:21 | EKG ---
Test Date: 2020-01-28 Test Time: 02:59:38 Supervisor Delivery Department: [facility]IA D MEASUREMENT RESULTS: Intervals: Rate: 74 SD: 162 QRSD: 82 QT: 454 QTc: 503 [place]: P: SD: 162 QRS: 1 T: -32 INTERPRETIVE STATEMENTS: Sinus rhythm with premature supraventricular complexes T wave abnormality, consider anterior ischemia Prolonged QT Abnormal ECG Compared to ECG 01/25/2020 12:09:21 Atrial premature complex(es) now present T-wave abnormality now present Possible ischemia now present Prolonged QT interval now present Atrial fibrillation no longer present ST (T wave) deviation no longer present Electronically Signed On 01-29-20 05:20:32 CDT by Per Crane
== END 2020-01-28 05:25 | disposition home or self-care (01) ==
LOC: ER 02:49
DX: K44.9 Diaphragmatic hernia without obstruction or gangrene (principal); I10 Essential (primary) hypertension; Z21 Asymptomatic human immunodeficiency virus [HIV] infection status; F31.9 Bipolar disorder, unspecified; I48.91 Unspecified atrial fibrillation; Z88.1 Allergy status to other antibiotic agents; Z88.5 Allergy status to narcotic agent; Z88.8 Allergy status to other drugs, medicaments and biological substances
CPT/HCPCS: 96361; 93005; 85025; 80048; 36415; 83735; 85610; 80076; 84484; 83690; 83880; 74177; 71045; 96375; 96374; 99285; Q9967; J3010; J7030; J2405

== ENCOUNTER 2020-02-02 11:21 | Emergency (ER) | payer OTHER ==
--- OUTSIDE RECORDS SUMMARY | 2020-02-02 11:22 | XMS REPORT | Clinical Summary ---
:1955 Author Organization [facility] Address [address] [place] [address] Care Team Providers Name Role Phone Asked, [...] INFLUENZA VACCINE 02/21/2020 Implants Implanted Type Area Public Health Informatician Device Shelf Model / Identifier Expiration Serial / Date Lot Versa-Dial/Comp Ti Std Taper Used W/25mm Glenoid Basplate - [id number] N/A: N/A [employer] 01/22/2026 [id number] / Implanted: Qty: 1 on 10/19/2016 by Austin Bowles MD at [facility] IMPLANT / DEVICES [id number] 41mm Comprehensive Reverse Shoulder Glenosphere Ba - [id number] I PM N/A: N/A [employer] 11/21/2023 [id number] / Implanted: Qty: 1 on 10/19/2016 by Austin Bowles MD at [facility] IMPLANT / DEVICES [id number] Arcom Xl 44-41 Std +3 Humeral Brg - [id number] Left: [employer] 07/20/2017 XL [id number] / Implanted: Qty: 1 on 10/19/2016 by Austin Bowles MD at [facility] IMPLANT Shoulder / DEVICES [id number] Humeral Tray With Locking Ring +5 Left: [employer] 03/31/2026 [id number] / Implanted: Qty: 1 on 10/19/2016 by Austin Bowles MD at [facility] Shoulder / [id number] Results Not on fileafter 02/01/2019 Advance Directives For more information, please contact: [phone] Type Date Recorded Patient Compliance Administrator Explanati on Advance Directives, Living Will and Medical Power of Dredge Captain
--- OUTSIDE RECORDS SUMMARY | 2020-02-02 11:23 | XMS REPORT | Continuity of Care Document ---
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 Unstable Unstable Disease Active [facility] on reverse reverse 08-20 Methodi 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:00: 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 Allergies, Adverse Reactions, Alerts Allergy Allergy Status Severity Reaction(s) Onset Inactive Treating Comm ents Source Name Type Date Date Clinician Metoclop Propensi Active Rashida n ramide ty to 504 Methodi Hcl adverse 00:00: st reaction 00 s to drug Codeine Propensi Active Brandon ty to 3-10 Methodi adverse 00:00: st reaction 00 s to drug Family History Family Member Diagnosis Comments Start Date Stop Date Source Natural father Hypertension Meza Mandaen Natural father Kidney disease Rashida soares Mandaen Social History Social Habit Start Date Stop Date Quantity Comments Source Sex Assigned At [facility] ethodist Cigarettes smoked 2016-11-03 2016-11-03 Derrick Mandaen current (pack per 00:00:00 00:00:00 day) - Reported Alcohol intake 2016-11-03 2016-11-03 Current drinker Porsha on Mandaen 00:00:00 00:00:00 of alcohol (finding) Alcohol Comment 2016-09-23 2016-09-23 renzo Corbin ethodist 00:00:00 00:00:00 Smoking Status Start Date Stop Date Source Current every day smoker 2016-11-03 00:00:00 Kilo ston Mandaen Medications Ordered Filled Start Stop Current Ordering [...] Future Scheduled 2020-02-21 INFLUENZA VACCINE [place] Mandaen Test 00:00:00 [code = INFLUENZA VACCINE] Future Scheduled 2006-01-[address] [facility] thodist Test 00:00:00 SCREENING [code = BREAST CANCER SCREENING] Future Scheduled 2006-01-22 COLONOSCOPY SCREENING elena Mandaen Test 00:00:00 [code = COLONOSCOPY SCREENING] Future Scheduled 2006-01-22 SHINGLES VACCINES [place] Manda[place] Test 00:00:00 (#1) [code = SHINGLES VACCINES (#1)] Future Scheduled 1977-01-[address] [facility] thodist Test 00:00:00 malignant neoplasm of cervix (procedure) [code = 530163417] Encounters Start End Encounter Admission Attending Care Care Encounter Source Date/Time Date/Time Type Type Clinicians Facility Department ID 2020-01-26 2020-01-26 Emergency [facility] [id number] 10:03:00 13:05:00 Erikahoward Sweta [id number] [place] [id number] [place] [id number] 2020-01-16 2020-01-16 [facility] [id number] 00:00:00 00:00:00 [facility] [id number] [facility] [id number] Results Test Description Test Time Test [...] (qualifier value) Not Detected N URINALYSIS WITH [id number] 10:57:00 Test Item Value Reference Range Interpretation Comments Color (test code = UCOLR) Dk. Yellow Clarity (test code = UCLAR) Hazy Glucose (test code = UGLUC) NEGATIVE NEGATIVE N Bilirubin (test code = UBILI) NEGATIVE NEGATIVE N Ketones (test code = UKET) NEGATIVE NEGATIVE N Specific [place] (test code = 1.025 1.005-1.030 A USPGR) [...]
[2020-02-02] MEDS ORDERED: ONDANSETRON 4 MG/2 ML VIAL ONE ×2 (11:54→17:17)
[2020-02-02] MEDS ORDERED: MORPHINE 4 MG/ML SYR ONE ×3 (11:54→17:17)
[2020-02-02] MEDS ORDERED: METOPROLOL TARTRATE 5 MG/5 ML INJ IV ONE ×2 (11:56→12:40)
[2020-02-02] MEDS ORDERED: NA CHLORIDE 0.9% 500 ML ONE (11:56)
[2020-02-02 12:17] LABS: Absolute Lymphocytes (CBC) 1.2 K/uL (0.7-4.9); Basophils % 2.2 % (0-1.3); Hematocrit 41.8 % (36.0-45.0); Lymphocytes % 11.7 % (15.3-44.8); MPV 7.7 fL (7.6-11.3); RBC Red Blood Cell Count 5.17 M/uL (3.86-4.86)
[2020-02-02 12:36] LABS: ALT/SGPT 33 U/L (12-78); AST/SGOT 27 U/L (15-37); Albumin 3.3 g/dL (3.4-5.0); Alkaline Phosphatase 82 U/L (45-117); BUN Blood Urea Nitrogen 22 mg/dL (7-18); Bicarbonate 30 mmol/L (21-32); Bilirubin Direct 0.1 mg/dL (0-0.2); Bilirubin Total 0.5 mg/dL (0.2-1.0); Glucose Level 103 mg/dL (74-106); Magnesium 2.3 mg/dL (1.8-2.4); NT PRO-BNP 1290 pg/mL (<125); Potassium 3.7 mmol/L (3.5-5.1); Protein, Total 7.8 g/dL (6.4-8.2); Sodium Level 140 mmol/L (136-145); Troponin (Emerg Dept Use Only) < 0.02 ng/mL (0.0-0.045)
--- NOTE | 2020-02-02 13:12 | RAD REPORT ---
EXAM DESCRIPTION: RAD - Chest Single View - 02/02/2020 12:41 pm CLINICAL HISTORY: CHEST PAIN COMPARISON: Portable January 27 TECHNIQUE: AP portable chest image was obtained 02/02/2020 12:41 pm . FINDINGS: Lung volumes are low. No peripheral mass consolidation. Baseline interstitial pattern is a ccentuated by the low lung volumes. This could mask early interstitial edema or infiltrate. Heart and vasculature are normal. No measurable pleural effusion and no pneumothorax. No acute bone finding. B ilateral shoulder joint prostheses in place. No acute aortic findings suspected. IMPRESSION: Limited low lung volume examination shows no peripheral mass or consolidation. Mild or early interstitial infiltrate or edema could be masked.
[2020-02-02 13:50] LABS: Blood Morphology Comment NOT SEEN (NOT SEEN); Platelet Estimate ADEQ
--- NOTE | 2020-02-02 14:30 | EDPHYS ---
Physician Documentation [facility] Name: Marjan Fleming Age: 65 yrs Sex: Female : 1955 Arrival Date: 02/02/2020 Time: 11:22 Bed 8 Private MD: SHEELA Physician Justus Kolb HPI: 02/01 12:06 This 65 yrs old Female presents to ER via Wheelchair with complaints of Chest pm1 Pain, Shortness Of Breath. 12:06 The patient or guardian reports chest pain that is located primarily in the mid-sternal pm1 area. Onset: this morning. The pain does not radiate. Associated signs and symptoms: Pertinent positives: shortness of breath. The chest pain is described as aching. Duration: The patient or guardian reports a single episode, that is still ongoing. The patient has experienced similar episodes in the past, a few times. Historical: - Allergies: 11:30 Bactrim DS; tw2 11:30 Codeine; tw2 11:30 metoclopramide HCl; tw2 11:30 Stadol; tw2 11:30 Demerol; tw2 11:30 Bactrim DS; ll1 11:30 Codeine; ll1 11:30 metoclopramide HCl; ll1 11:30 Stadol; ll1 - PMHx: 11:30 HIV; Migraines; esophageal varices; Hypertension; COPD; Atrial Fib; Bipolar disorder; tw2 Anxiety; Chronic pain; Hepatitis; Panic Attacks; 11:30 Atrial Fib; HIV; Hypertension; Migraines; Hepatitis; esophageal varices; COPD; Chronic ll1 pain; Bipolar disorder; Panic Attacks; Anxiety; - PSHx: 11:30 Appendectomy; Cholecystectomy; tw2 11:30 Cholecystectomy; Appendectomy; ll1 - Immunization history:: Adult Immunizations Flu vaccine is up to date. - Social history:: Smoking status: Patient/guardian denies using tobacco, Stopped _ months ago 10 Patient/guardian denies using IV drugs, Smoking status: . ROS: 12:06 Constitutional: Negative for fever, chills, and weight loss. pm1 12:06 Abdomen/GI: Negative for abdominal pain, nausea, vomiting, diarrhea, and constipation, Back: Negative for injury and pain, MS/Extremity: Negative for injury and deformity, Skin: Negative for injury, rash, and discoloration, Neuro: Negative for headache, weakness, numbness, tingling, and seizure. 12:06 Cardiovascular: Positive for chest pain, palpitations, Negative for edema. 12:06 Respiratory: Positive for shortness of breath, Negative for cough, sputum production, wheezing. 12:06 All other systems are negative. Exam: 12:06 Constitutional: This is a well developed, well nourished patient who is awake, alert, pm1 and in no acute distress. Head/Face: Normocephalic, atraumatic. Chest/axilla: Normal chest wall appearance and motion. Nontender with no deformity. No lesions are appreciated. 12:06 Back: No spinal tenderness. No costovertebral tenderness. Full range of motion. Skin: Warm, dry with normal turgor. Normal color with no rashes, no lesions, and no evidence of cellulitis. MS/ Extremity: Pulses equal, no cyanosis. Neurovascular intact. Full, normal range of motion. 12:06 Cardiovascular: Rate: tachycardic, Rhythm: irregular, Pulses: no pulse deficits are appreciated, Edema: is not appreciated. 12:06 Respiratory: Exam negative for acute changes, respiratory distress, shortness of breath, wheezing. 12:06 Abdomen/GI: Exam negative for acute changes, Inspection: abdomen appears normal, Palpation: abdomen is soft and non-tender, in all quadrants. 12:06 Neuro: Exam negative for acute changes, Orientation: is normal, Mentation: is normal, Motor: is normal, moves all fours. Vital Signs: 11:28 BP 123 / 90; Pulse 110; Resp 20; Temp 97.1; Pulse Ox 96% on R/A; Pain 10/10; ll1 12:12 BP 115 / 92; Pulse 106; Resp 21; Pulse Ox 97% on R/A; em 12:35 BP 106 / 78; Pulse 95; Resp 20; Pulse Ox 95% on R/A; em 12:42 BP 98 / 82; Pulse 86; Resp 18; Pulse Ox 95% on R/A; em 13:18 BP 108 / 88; Pulse 99; Resp 18; Pulse Ox 96% on R/A; em 14:33 BP 90 / 67 Supine; Pulse 87; Resp 17; Pulse Ox 96% on R/A; em 15:19 BP 80 / 63 Supine; Pulse 82; Resp 15; Pulse Ox 96% on R/A; tw2 16:00 BP 93 / 73; Pulse 87; Resp 18; Pulse Ox 99% on R/A; Pain 8/10; em MDM: 11:24 Patient medically screened. thomas 14:26 Data reviewed: vital signs. Data interpreted: Pulse oximetry: on room air is 96 %. pm1 Interpretation: normal. 14:27 Counseling: I had a detailed discussion with the patient and/or guardian regarding: the pm1 historical points, exam findings, and any diagnostic results supporting the discharge/admit diagnosis, lab results, radiology results, the need for further work-up and treatment in the hospital. 14:43 Physician consultation: Brandon Shin was called at 14:43, was contacted at 14:43, pm1 regarding admission, patient's condition, discussed the case with Dr. Shin. He does not feel the patient needs to be admitted to the hospital due to lack of anticoagulation. 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 02/01 11:30 Order name: Basic Metabolic Panel; Complete Time: 12:38 pm02/01 11:30 Order name: CBC with Diff; Complete Time: 14:17 pm02/01 11:30 Order name: LFT's; Complete Time: 12:38 pm02/01 11:30 Order name: Magnesium; Complete Time: 12:38 pm02/01 11:30 Order name: NT PRO-BNP; Complete Time: 12:38 pm02/01 11:30 Order name: PT-INR; Complete Time: 12:35 pm02/01 11:30 Order name: Troponin (emerg Dept Use Only); Complete Time: 12:38 pm02/01 11:30 Order name: XRAY Chest (1 view); Complete Time: 13:23 pm02/01 12:19 Order name: Manual Differential; Complete Time: 14:17 EDMS 02/01 11:30 Order name: EKG; Complete Time: 11:31 pm02/01 11:30 Order name: Cardiac monitoring; Complete Time: 11:31 pm02/01 11:30 Order name: EKG - Nurse/Tech; Complete Time: 12:13 pm02/01 11:30 Order name: IV Saline Lock; Complete Time: 12:13 pm1 02/01 11:30 Order name: Labs collected and sent; Complete Time: 11: pm1 02/01 11:30 Order name: O2 Per Protocol; Complete Time: pm1 02/01 11:30 Order name: O2 Sat Monitoring; Complete Time: : pm1 Administered Medications: 12:00 Drug: NS 0.9% 500 ml Route: IV; Rate: bolus; Site: left wrist; em 12:45 Follow up: IV Status: Completed infusion; IV Intake: 500ml em 12:01 Drug: Lopressor 5 mg Route: IVP; Site: left wrist; em 12:29 Follow up: Response: No adverse reaction; Cardiac rhythm is unchanged em 12:03 Drug: Zofran (Ondansetron) 4 mg Route: IVP; Site: left wrist; em 12:30 Follow up: Response: No adverse reaction; Marked relief of symptoms em 12:05 Drug: morphine 4 mg Route: IVP; Site: left wrist; em 12:30 Follow up: Response: No adverse reaction; Pain is unchanged, physician notified; RASS: em Alert and Calm (0) 12:38 Drug: Lopressor 2.5 mg Route: IVP; Site: left wrist; em 12:45 Follow up: Response: No adverse reaction; Cardiac rhythm is unchanged em 13:47 Drug: morphine 4 mg Route: IVP; Site: left wrist; em 14:35 Follow up: Response: No adverse reaction; Pain is decreased; RASS: Alert and Calm (0) tw2 14:53 Drug: Eliquis 5 mg Route: PO; tw2 15:19 Follow up: Response: No adverse reaction tw2 Disposition: 02/02/20 14:50 Discharged to Home. Impression: Atrial fibrillation and flutter - RVR, Chest pain, unspecified, Shortness of breath. - Condition is Stable. - Discharge Instructions: Atrial Fibrillation, Nonspecific Chest Pain, Shortness of Breath. - Prescriptions for Eliquis 2.5 mg Oral tablet - take 1 tablet by ORAL route 2 times per day; 30 tablet. - Medication Reconciliation Form, Thank You Letter, Antibiotic Education, Prescription Opioid Use form. - Follow up: Per Crane MD; When: 2 - 3 days; Reason: Recheck today's complaints, Continuance of care, Re-evaluation by your physician. - Problem is new. - Symptoms have improved. Addendum: 02/04/2020 10:50 Co-signature as Attending Physician, Justus Kolb MD I agree with the assessment and c restrepo plan of care. Signatures: Dispatcher [employer] Justus Long MD MD cha Munoz, Edgar, RN RN em Austin Raza, DOMAIN ARCHITECT DOMAIN ARCHITECT pm1 Karen Tovar RN RN tw2 Yanira De Jesus RN RN ll1 Corrections: (The following items were deleted from the chart) 02/01 14:49 14:29 Hospitalization Ordered by Brandon Shin for Observation. Preliminary diagnosis pm1 is Atrial fibrillation and flutter - RVR; Chest pain, unspecified; Shortness of breath. Bed requested for Telemetry/MedSurg (observation). Status is Observation. Condition is Stable. Problem is new. Symptoms have improved. pm1 16:14 14:50 02/02/2020 14:50 Discharged to Home. Impression: Atrial fibrillation and flutter em - RVR; Chest pain, unspecified; Shortness of breath. Condition is Stable. Forms are Medication Reconciliation Form, Thank You Letter, Antibiotic Education, Prescription Opioid Use. Follow up: Per Crane; When: 2 - 3 days; Reason: Recheck today's complaints, Continuance of care, Re-evaluation by your physician. Problem is new. Symptoms have improved. pm1
--- NOTE | 2020-02-02 14:30 | ER ---
Nurse's Notes [facility] Name: Marjan Fleming Age: 65 yrs Sex: Female : 1955 Arrival Date: 02/02/2020 Time: 11:22 Bed 8 Private MD: Diagnosis: Atrial fibrillation and flutter-RVR;Chest pain, unspecified;Shortness of breath Presentation: 02/01 11:28 Chief complaint: Patient states: CP and SOB began today. Just released from another [facility] for COPD [place]. No fever. Covid negative last week. Coronavirus screen: Client denies travel out of the [place] in the last 14 days. difficulty breathing, The client reports previous COVID testing was negative. Ebola Screen: Patient denies travel to an Ebola-affected area in the 21 days before illness onset. Initial Sepsis Screen: Does the patient meet any 2 criteria? HR > 90 bpm. No. Patient's initial sepsis screen is negative. Risk Assessment: Do you want to hurt yourself or someone else? Patient reports no desire to harm self or others. Onset of symptoms was February 02, 2020. 11:28 Method Of Arrival: Wheelchair ll1 11:28 Acuity: BLAYNE 3 ll1 Historical: - Allergies: 11:30 Bactrim DS; tw2 11:30 Codeine; tw2 11:30 metoclopramide HCl; tw2 11:30 Stadol; tw2 11:30 Demerol; tw2 11:30 Bactrim DS; ll1 11:30 Codeine; ll1 11:30 metoclopramide HCl; ll1 11:30 Stadol; ll1 - PMHx: 11:30 HIV; Migraines; esophageal varices; Hypertension; COPD; Atrial Fib; Bipolar disorder; tw2 Anxiety; Chronic pain; Hepatitis; Panic Attacks; 11:30 Atrial Fib; HIV; Hypertension; Migraines; Hepatitis; esophageal varices; COPD; Chronic ll1 pain; Bipolar disorder; Panic Attacks; Anxiety; - PSHx: 11:30 Appendectomy; Cholecystectomy; tw2 11:30 Cholecystectomy; Appendectomy; ll1 - Immunization history:: Adult Immunizations Flu vaccine is up to date. - Social history:: Smoking status: Patient/guardian denies using tobacco, Stopped _ months ago 10 Patient/guardian denies using IV drugs, Smoking status: . Screenin:28 Abuse screen: Denies threats or abuse. Nutritional screening: No deficits noted. tw2 Tuberculosis screening: No symptoms or risk factors identified. Fall Risk None identified. Assessment: 11:29 Reassessment: provider at bedside at this time. tw2 11:30 General: Appears in no apparent distress. uncomfortable, Behavior is calm, cooperative, em appropriate for age, Denies fever. Pain: Complains of pain in chest Pain does not radiate. Pain began 4 hours ago. Neuro: Level of Consciousness is awake, alert, obeys commands, Oriented to person, place, time, situation, Appropriate for age. Cardiovascular: Reports chest pain, shortness of breath, Capillary refill < 3 seconds Patient's skin is warm and dry. Rhythm is atrial fibrillation with rapid ventricular response. Respiratory: Airway is patent Respiratory effort is even, unlabored, Respiratory pattern is regular, symmetrical. GI: Reports nausea. Derm: Skin is intact, is fragile, is thin, Skin is pink, warm \T\ dry. Musculoskeletal: Capillary refill < 3 seconds, Range of motion: intact in all extremities. 12:42 Reassessment: Patient appears in no apparent distress at this time. Patient and/or em family updated on plan of care and expected duration. Pain level reassessed. Patient is alert, oriented x 3, equal unlabored respirations, skin warm/dry/pink. 13:45 Reassessment: Patient appears in no apparent distress at this time. Patient and/or em family updated on plan of care and expected duration. Pain level reassessed. reports pain is back at 8/10, provider notified. 14:24 Reassessment: provider at bedside. em 14:34 Reassessment: Patient appears in no apparent distress at this time. Patient and/or em family updated on plan of care and expected duration. Pain level reassessed. Patient is alert, oriented x 3, equal unlabored respirations, skin warm/dry/pink. 15:20 Reassessment: Patient appears in no apparent distress at this time. Patient and/or tw2 family updated on plan of care and expected duration. Pain level reassessed. Patient is alert, oriented x 3, equal unlabored respirations, skin warm/dry/pink. 15:29 Reassessment: pt would like to speak with provider prior to being discharged. em Vital Signs: 11:28 BP 123 / 90; Pulse 110; Resp 20; Temp 97.1; Pulse Ox 96% on R/A; Pain 10/10; ll1 12:12 BP 115 / 92; Pulse 106; Resp 21; Pulse Ox 97% on R/A; em 12:35 BP 106 / 78; Pulse 95; Resp 20; Pulse Ox 95% on R/A; em 12:42 BP 98 / 82; Pulse 86; Resp 18; Pulse Ox 95% on R/A; em 13:18 BP 108 / 88; Pulse 99; Resp 18; Pulse Ox 96% on R/A; em 14:33 BP 90 / 67 Supine; Pulse 87; Resp 17; Pulse Ox 96% on R/A; em 15:19 BP 80 / 63 Supine; Pulse 82; Resp 15; Pulse Ox 96% on R/A; tw2 16:00 BP 93 / 73; Pulse 87; Resp 18; Pulse Ox 99% on R/A; Pain 8/10; em ED Course: 11:22 Patient arrived in ED. ds1 11:24 Austin Raza NP is PHCP. pm1 11:24 Justus Kolb MD is Attending Physician. pm1 11:24 Bed in low position. Placed in gown. Call light in reach. chimney builder brick on. Pulse ox tw2 on. NIBP on. 11:27 Venu Ortega, RN is Primary Nurse. em 11:29 Triage completed. ll1 11:31 Arm band placed on. ll1 11:49 Missed attempt(s): 22 gauge in left hand. VenuRN at bedside for additional IV attempt tw2 at this time.. Bleeding controlled, band aid applied, catheter tip intact. 11:55 Initial lab(s) drawn, by me, sent to lab. Inserted saline lock: 22 gauge in left wrist, em using aseptic technique. Blood collected. Patient maintains SpO2 saturation greater than 95% on room air. 12:09 Warm blanket given. mh5 12:41 XRAY Chest (1 view) In Process Unspecified. EDMS 14:28 Brandon Shin is Hospitalizing Provider. pm1 14:30 Awaiting: Eliquis PO med from pharmacy. tw2 14:49 Per Crane MD is Referral Physician. pm1 16:13 No provider procedures requiring assistance completed. IV discontinued, intact, em bleeding controlled, No redness/swelling at site. Pressure dressing applied. Administered Medications: 12:00 Drug: NS 0.9% 500 ml Route: IV; Rate: bolus; Site: left wrist; em 12:45 Follow up: IV Status: Completed infusion; IV Intake: 500ml em 12:01 Drug: Lopressor 5 mg Route: IVP; Site: left wrist; em 12:29 Follow up: Response: No adverse reaction; Cardiac rhythm is unchanged em 12:03 Drug: Zofran (Ondansetron) 4 mg Route: IVP; Site: left wrist; em 12:30 Follow up: Response: No adverse reaction; Marked relief of symptoms em 12:05 Drug: morphine 4 mg Route: IVP; Site: left wrist; em 12:30 Follow up: Response: No adverse reaction; Pain is unchanged, physician notified; RASS: em Alert and Calm (0) 12:38 Drug: Lopressor 2.5 mg Route: IVP; Site: left wrist; em 12:45 Follow up: Response: No adverse reaction; Cardiac rhythm is unchanged em 13:47 Drug: morphine 4 mg Route: IVP; Site: left wrist; em 14:35 Follow up: Response: No adverse reaction; Pain is decreased; RASS: Alert and Calm (0) tw2 14:53 Drug: Eliquis 5 mg Route: PO; tw2 15:19 Follow up: Response: No adverse reaction tw2 Intake: 12:45 IV: 500ml; Total: 500ml. em Outcome: 14:29 Decision to Hospitalize by Provider. pm1 14:50 Discharge ordered by MD. pm1 16:13 Discharged to home ambulatory. em 16:13 Condition: improved 16:13 Discharge instructions given to patient, Instructed on discharge instructions, follow up and referral plans. medication usage, Demonstrated understanding of instructions, follow-up care, medications, Prescriptions given X 1. 16:14 Patient left the ED. em Signatures: Dispatcher [employer] Venu Grant RN RN em Lainey Monson ds1 Austin Raza NP MARINE EQUIPMENT SALES ENGINEER pm1 Karen Tovar RN RN tw2 Laura Simons5 Yanira De Jesus RN RN ll1 Corrections: (The following items were deleted from the chart) 11:32 11:28 Chief complaint: Patient states: CP and SOB began today. Just released from [facility] hospital for CHF. No fever. Covid negative last week. [facility]
[2020-02-02] MEDS ORDERED: APIXABAN 5 MG TABLET PO ONE (15:00)
[2020-02-02 17:03] VITALS: TEMP 97.1
[2020-02-02 17:11] VITALS: BP 93/73; O2SAT 99
[2020-02-02] MEDS ORDERED: NITROGLYCERIN 1 GM PKT TD ONE (17:17)
--- NOTE | 2020-02-03 09:46 | EKG ---
Test Date: 2020-02-02 Test Time: 11:37:33 [place] Torch Operator: SHELIA MEASUREMENT RESULTS: Intervals: Rate: 107 [place]: QRSD: 80 QT: 364 QTc: 485 [place]: P: OK: QRS: 0 T: 31 INTERPRETIVE STATEMENTS: Atrial fibrillation with rapid ventricular response Voltage criteria for left ventricular hypertrophy Nonspecific ST and T wave abnormality, probably digitalis effect Abnormal ECG Compared to ECG 01/28/2020 02:59:38 Left ventricular hypertrophy now present ST (T wave) deviation now present Sinus rhythm no longer present Atrial premature complex(es) no longer present T-wave abnormality no longer present Possible ischemia no longer present Prolonged QT interval no longer present Electronically Signed On 02-03-20 09:44:22 CDT by Per Crane
== END 2020-02-02 16:14 | disposition home or self-care (01) ==
LOC: ER 11:21
DX: I48.91 Unspecified atrial fibrillation (principal); I48.4 Atypical atrial flutter; R07.9 Chest pain, unspecified; I10 Essential (primary) hypertension; Z21 Asymptomatic human immunodeficiency virus [HIV] infection status; Z88.1 Allergy status to other antibiotic agents; Z88.5 Allergy status to narcotic agent; Z88.6 Allergy status to analgesic agent; Z88.8 Allergy status to other drugs, medicaments and biological substances
CPT/HCPCS: 96361; 93005; 85025; 80048; 36415; 83735; 85610; 80076; 84484; 83880; 71045; 96375; 96374; 99285; J7040; J2405 ×2

== ENCOUNTER 2020-02-02 16:33 | Observation (INO) | payer OTHER ==
--- OUTSIDE RECORDS SUMMARY | 2020-02-02 16:35 | XMS REPORT | Clinical Summary ---
:1955 Author Organization [facility] Address [address] [place] [address] Care Team Providers Name Role Phone Asked, [...] INFLUENZA VACCINE 02/21/2020 Implants Implanted Type Area Wire Twister Device Shelf Model / Identifier Expiration Serial / Date Lot Versa-Dial/Comp Ti Std Taper Used W/25mm Glenoid Basplate - [id number] N/A: N/A [employer] 01/22/2026 [id number] / Implanted: Qty: 1 on 10/19/2016 by Austin Bowles MD at [facility] IMPLANT / DEVICES [id number] 41mm Comprehensive Reverse Shoulder Glenosphere Ba - [id number] PM N/A: N/A [employer] 11/21/2023 [id number] / Implanted: Qty: 1 on 10/19/2016 by Austin Bowles MD at [facility] IMPLANT / DEVICES [id number] Arcom Xl 44-41 Std +3 Humeral Brg - [id number] Left: [employer] 07/20/2017 XL [id number] / Implanted: Qty: 1 on 10/19/2016 by Austin Bowles MD at [facility] IMPLANT Shoulder / DEVICES [id number] Humeral Tray With Locking Ring +5 Left: [employer] 03/31/2026 [id number] / Implanted: Qty: 1 on 10/19/2016 by Austin Bowles MD at [facility] Shoulder / [id number] Results Not on fileafter 02/01/2019 Advance Directives For more information, please contact: [phone] Type Date Recorded 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
--- OUTSIDE RECORDS SUMMARY | 2020-02-02 16:35 | XMS REPORT | Continuity of Care Document ---
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 Unstable Unstable Disease Active [facility] on reverse reverse 08-20 Methodi 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:00: 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 Allergies, Adverse Reactions, Alerts Allergy Allergy Status Severity Reaction(s) Onset Inactive Treating Comm ents Source Name Type Date Date Clinician Metoclop Propensi Active Rashida n ramide ty to 504 Methodi Hcl adverse 00:00: st reaction 00 s to drug Codeine Propensi Active [place] ty to 3-10 Methodi adverse 00:00: st reaction 00 s to drug Family History Family Member Diagnosis Comments Start Date Stop Date Source Natural father Hypertension Me[facility] Natural father Kidney disease Rashida soares [facility] Social History Social Habit Start Date Stop Date Quantity Comments Source Sex Assigned At [facility] ethodist Cigarettes smoked 2016-11-03 2016-11-03 Derrick [facility] current (pack per 00:00:00 00:00:00 day) - Reported Alcohol intake 2016-11-03 2016-11-03 Current drinker Porsha on Christianity 00:00:00 00:00:00 of alcohol (finding) Alcohol Comment 2016-09-23 2016-09-23 renzo Corbin ethodist 00:00:00 00:00:00 Smoking Status Start Date Stop Date Source Current every day smoker 2016-11-03 00:00:00 Kilo ston [facility] Medications Ordered Filled Start Stop Current Ordering [...] Future Scheduled 2020-02-21 INFLUENZA VACCINE [place] [facility] Test 00:00:00 [code = INFLUENZA VACCINE] Future Scheduled 2006-01-22 BREAST CANCER [facility] thodist Test 00:00:00 SCREENING [code = BREAST CANCER SCREENING] Future Scheduled 2006-01-22 COLONOSCOPY SCREENING elena [facility] Test 00:00:00 [code = COLONOSCOPY SCREENING] Future Scheduled 2006-01-22 SHINGLES VACCINES [place] [facility] Test 00:00:00 (#1) [code = SHINGLES VACCINES (#1)] Future Scheduled 1977-01-22 Screening for [facility] thodist Test 00:00:00 malignant neoplasm of cervix (procedure) [code = 980780197] Encounters Start End Encounter Admission Attending Care Care Encounter Source Date/Time Date/Time Type Type Clinicians Facility Department ID 2020-01-26 2020-01-26 Emergency [facility] [id number] 10:03:00 13:05:00 Erikahoward Sweta [id number] [place] [id number] [place] [id number] 2020-01-16 2020-01-16 [facility] [id number] 00:00:00 00:00:00 [facility] [id number] [facility] [id number] Results Test Description Test Time Test [...] (qualifier value) Not Detected N URINALYSIS WITH [id number] 10:57:00 Test Item Value Reference Range Interpretation Comments Color (test code = UCOLR) Dk. Yellow Clarity (test code = UCLAR) Hazy Glucose (test code = UGLUC) NEGATIVE NEGATIVE N Bilirubin (test code = UBILI) NEGATIVE NEGATIVE N Ketones (test code = UKET) NEGATIVE NEGATIVE N Specific [place] (test code = 1.025 1.005-1.030 A USPGR) [...]
--- NOTE | 2020-02-02 17:31 | EDPHYS ---
Physician Documentation [facility] Name: Marjan Fleming Age: 65 yrs Sex: Female : 1955 Arrival Date: 02/02/2020 Time: 16:35 Bed 20 Private MD: ED Physician Justus Kolb HPI: 02/01 17:22 This 65 yrs old Female presents to ER via Ambulatory with complaints of Chest thomas Pain. 17:22 The patient or guardian reports chest pain that is located primarily in the substernal thomas area, anterior chest wall, bilaterally. Onset: just prior to arrival. The pain does not radiate. Associated signs and symptoms: The patient has no apparent associated signs or symptoms. The chest pain is described as a pressure. Duration: The patient or guardian reports a single episode, that is still ongoing. Modifying factors: The symptoms are alleviated by nothing. the symptoms are aggravated by nothing. Severity of pain: At its worst the pain was moderate in the emergency department the pain has improved moderately. The patient has experienced similar episodes in the past, several times. Historical: - Allergies: 16:46 Bactrim DS; ll1 16:46 Codeine; ll1 16:46 Demerol; ll1 16:46 metoclopramide HCl; ll1 16:46 Stadol; ll1 - PMHx: 16:46 Panic Attacks; Hepatitis; Hypertension; Migraines; COPD; esophageal varices; HIV; ll1 Chronic pain; Bipolar disorder; Anxiety; Atrial Fib; - PSHx: 16:46 Appendectomy; Cholecystectomy; ll1 - Immunization history:: Flu vaccine status is unknown. - Social history:: Smoking status: Patient reports the use of cigarette tobacco products, smokes one-half pack cigarettes per day. - Family history:: not pertinent. ROS: 17:22 Constitutional: Negative for fever, chills, and weight loss, Eyes: Negative for injury, thomas pain, redness, and discharge, ENT: Negative for injury, pain, and discharge, Neck: Negative for injury, pain, and swelling, Respiratory: Negative for shortness of breath, cough, wheezing, and pleuritic chest pain, Abdomen/GI: Negative for abdominal pain, nausea, vomiting, diarrhea, and constipation, Back: Negative for injury and pain, : Negative for injury, bleeding, discharge, and swelling, MS/Extremity: Negative for injury and deformity, Skin: Negative for injury, rash, and discoloration, Neuro: Negative for headache, weakness, numbness, tingling, and seizure, Psych: Negative for depression, anxiety, suicide ideation, homicidal ideation, and hallucinations, Allergy/Immunology: Negative for hives, rash, and allergies, Endocrine: Negative for neck swelling, polydipsia, polyuria, polyphagia, and marked weight changes, Hematologic/Lymphatic: Negative for swollen nodes, abnormal bleeding, and unusual bruising. 17:22 Cardiovascular: Positive for chest pain. Exam: 17:22 Constitutional: This is a well developed, well nourished patient who is awake, alert, thomas and in no acute distress. Head/Face: Normocephalic, atraumatic. Eyes: Pupils equal round and reactive to light, extra-ocular motions intact. Lids and lashes normal. Conjunctiva and sclera are non-icteric and not injected. Cornea within normal limits. Periorbital areas with no swelling, redness, or edema. ENT: Nares patent. No nasal discharge, no septal abnormalities noted. Tympanic membranes are normal and external auditory canals are clear. Oropharynx with no redness, swelling, or masses, exudates, or evidence of obstruction, uvula midline. Mucous membranes moist. Neck: Trachea midline, no thyromegaly or masses palpated, and no cervical lymphadenopathy. Supple, full range of motion without nuchal rigidity, or vertebral point tenderness. No Meningismus. Chest/axilla: Normal chest wall appearance and motion. Nontender with no deformity. No lesions are appreciated. Respiratory: Lungs have equal breath sounds bilaterally, clear to auscultation and percussion. No rales, rhonchi or wheezes noted. No increased work of breathing, no retractions or nasal flaring. Abdomen/GI: Soft, non-tender, with normal bowel sounds. No distension or tympany. No guarding or rebound. No evidence of tenderness throughout. Back: No spinal tenderness. No costovertebral tenderness. Full range of motion. Female : Normal external genitalia. Skin: Warm, dry with normal turgor. Normal color with no rashes, no lesions, and no evidence of cellulitis. MS/ Extremity: Pulses equal, no cyanosis. Neurovascular intact. Full, normal range of motion. Neuro: Awake and alert, GCS 15, oriented to person, place, time, and situation. Cranial nerves II-XII grossly intact. Motor strength 5/5 in all extremities. Sensory grossly intact. Cerebellar exam normal. Normal gait. Psych: Awake, alert, with orientation to person, place and time. Behavior, mood, and affect are within normal limits. 17:22 Cardiovascular: Rate: tachycardic, Rhythm: irregularly irregular. 17:22 Cardiovascular: Heart sounds: normal, normal S1and S2, no S3 or S4, no murmur, no rub, no gallop, Edema: is not appreciated, JVD: is not appreciated. 17:22 ECG was reviewed by the Attending Physician. 17:22 Musculoskeletal/extremity: DVT Exam: No signs of deep vein thrombosis. no pain, no swelling, no tenderness, negative Homans' sign noted on exam, no appreciated bluish discoloration, no erythema, no increased warmth. Vital Signs: 16:45 BP 160 / 136; Pulse 79; Resp 22; Temp 97.4; Pulse Ox 95% ; Pain 10/10; ll1 17:33 BP 128 / 72; Pulse 121; Resp 14; Pulse Ox 93% ; Pain 10/10; ll2 17:49 BP 106 / 75; Pulse 78; Resp 16; Temp 98.6; Pulse Ox 97% on 2 lpm NC; ll2 18:44 BP 99 / 75; Pulse 89; Resp 16; Temp 97.8; Pulse Ox 88% on R/A; Pain 4/10; ll2 19:45 BP 107 / 92; Pulse 68; Resp 15; Pulse Ox 94% on 2 lpm NC; ll2 20:45 BP 106 / 75; Pulse 84; Resp 17; Pulse Ox 100% on 2 lpm NC; ll2 21:59 BP 107 / 76; Pulse 89; Resp 16; Pulse Ox 100% on 2 lpm NC; ll2 MDM: 17:00 Patient medically screened. thomas 17:26 Differential diagnosis: abnormal EKG, coronary artery disease chest wall pain, thomas esophagitis, pancreatitis, pneumonia, pulmonary embolus, stable angina, unstable angina. HEART Score: History: Slightly Suspicious (0), ECG: Non specific repolarization disturbance / LBTB / PM (1), Age: > 45 and < 65 years (1), Risk Factors: > or = 3 Risk factors for atherosclerotic disease (2), [Hypercholesterolemia] [Hypertension] [+ Family HX] Troponin: < or = 1 x Normal Limit (0). The patient was not given aspirin in the Emergency Department. Not indicated due to patient's past medical history. The patient's deep vein thrombosis risk score was calculated as follows: Total Score: 0. This patient was found to be at low risk for a deep vein thrombosis by using the Well's assessment criteria. The patient's pulmonary embolism risk score was calculated as follows: Total Score: 0-2 points. This patient was found to be at low risk for a pulmonary embolism by using the Well's assessment criteria. MONI Risk Score: 1 - Three or more CAD risk factors, 1- Known CAD, TOTAL SCORE = 2. Data reviewed: vital signs, nurses notes, old medical records, lab test result(s), EKG, radiologic studies. 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 Test interpretation: by ED physician or midlevel provider: ECG, plain radiologic studies. ED course: repeat visit chest pain and afib, obs dr jackson. 02/01 17:01 Order name: Basic Metabolic Panel; Complete Time: 18:40 [facility] 02/01 17:01 Order name: CBC with Diff; Complete Time: 18:40 [facility] 02/01 17:01 Order name: LFT's; Complete Time: 18:40 [facility] 02/01 17:01 Order name: Magnesium; Complete Time: 18:40 [facility] 02/01 17:01 Order name: NT PRO-BNP; Complete Time: 18:40 [facility] 02/01 17:01 Order name: PT-INR; Complete Time: 18:40 [facility] 02/01 17:01 Order name: Troponin (emerg Dept Use Only); Complete Time: 18:40 [facility] 02/01 19:30 Order name: COVID-19 02/01 19:49 Order name: Urinalysis EDAZ 02/01 19:49 Order name: Basic Metabolic Panel [facility] 02/01 19:49 Order name: Basic Metabolic Panel [facility] 02/01 19:49 Order name: CBC with Automated Diff [facility] 02/01 19:49 Order name: CBC with Automated Diff [facility] 02/01 19:49 Order name: Magnesium [facility] 02/01 17:01 Order name: EKG; Complete Time: 17:02 [facility] 02/01 17:01 Order name: Cardiac monitoring; Complete Time: 19:11 [facility] 02/01 17:01 Order name: EKG - Nurse/Tech; Complete Time: 17:17 [facility] 02/01 17:01 Order name: IV Saline Lock; Complete Time: 19:11 [facility] 02/01 17:01 Order name: Labs collected and sent; Complete Time: 19:11 [facility] 02/01 17:01 Order name: O2 Per Protocol; Complete Time: 17:17 [facility] 02/01 17:01 Order name: O2 Sat Monitoring; Complete Time: 17:17 [facility] 02/01 18:22 Order name: Diet Regular; Complete Time: 18:22 hb 02/01 19:49 Order name: Heart Healthy EDAZ 02/01 19:49 Order name: Magnesium EDA[facility] 02/01 21:05 Order name: Troponin I [facility] 02/01 22:05 Order name: SARS-COV-2 RT PCR EDMS EC:22 Rate is 87 beats/min. Rhythm is irregular. QRS [place] is Normal. OR interval is normal. [facility] QRS interval is normal. QT interval is normal. No Q waves. T waves are Normal. No ST changes noted. Clinical impression: Atrial Fibrillation. Interpreted by me. Reviewed by me. Administered Medications: 17:31 Drug: Zofran (Ondansetron) 4 mg Route: IVP; Site: right forearm; ll2 20:24 Follow up: Response: No adverse reaction ll2 17:32 Drug: morphine 4 mg Route: IVP; Site: right forearm; ll2 20:24 Follow up: Response: No adverse reaction; Pain is decreased; RASS: Alert and Calm (0) ll2 19:34 Not Given (Patient Refused): Nitro-Bid Ointment 2 % 1 inches Transdermal once ll2 Disposition: 02/02/20 17:30 Hospitalization ordered by Brandon Shin for Observation. Preliminary diagnosis are Chest pain, unspecified, Atrial fibrillation and flutter, Chronic obstructive pulmonary disease, unspecified. - Bed requested for Telemetry/MedSurg (observation). - Status is Observation. aj1 - Condition is Stable. - Problem is new. - Symptoms have improved. Signatures: Dispatcher [employer] EDAZ Teresa Guerrero RN RN aj1 Justus Kolb MD MD cha [place], Lacie, RN RN ll2 Yanira De Jesus RN RN ll1 David Loredo tt3 Corrections: (The following items were deleted from the chart) 17:09 17:02 Chest Single View+RAD.RAD.BRZ ordered. EDMS EDMS 22:25 17:30 Hospitalization Ordered by Brandon Shin for Observation. Preliminary diagnosis tt3 is Chest pain, unspecified; Atrial fibrillation and flutter; Chronic obstructive pulmonary disease, unspecified. Bed requested for Telemetry/MedSurg (observation). Status is Observation. Condition is Stable. Problem is new. Symptoms have improved. thomas 23:07 22:25 02/02/2020 17:30 Hospitalization Ordered by Brandon Shin for Observation. aj1 Preliminary diagnosis is Chest pain, unspecified; Atrial fibrillation and flutter; Chronic obstructive pulmonary disease, unspecified. Bed requested for Telemetry/MedSurg (observation). Status is Observation. Condition is Stable. Problem is new. Symptoms have improved. tt3
--- NOTE | 2020-02-02 17:31 | ER ---
Nurse's Notes [facility] Name: Marjan Fleming Age: 65 yrs Sex: Female : 1955 Arrival Date: 02/02/2020 Time: 16:35 Bed 20 Private MD: Diagnosis: Chest pain, unspecified;Atrial fibrillation and flutter;Chronic obstructive pulmonary disease, unspecified Presentation: 02/01 16:45 Chief complaint: Patient states: CP and SOB hit real hard as soon as she walked out of 1 the ER after discharge. Coronavirus screen: Client denies travel out of the [place] in the last 14 days. At this time, the client does not indicate any symptoms associated with coronavirus-19. Ebola Screen: Patient denies travel to an Ebola-affected area in the 21 days before illness onset. Initial Sepsis Screen: Does the patient meet any 2 criteria?. Risk Assessment: Do you want to hurt yourself or someone else? Patient reports no desire to harm self or others. Onset of symptoms was February 02, 2020. 16:45 Method Of Arrival: Ambulatory ll1 16:45 Acuity: BLAYNE 3 ll1 17:42 Initial Sepsis Screen: Does the patient have a suspected source of infection? No. ll2 Patient's initial sepsis screen is negative. Triage Assessment: 17:41 General: Appears Behavior is calm, cooperative, appropriate for age. Pain: Complains of ll2 pain in xyphoid area and mid-sternal area Quality of pain is described as sharp, shooting. Historical: - Allergies: 16:46 Bactrim DS; ll1 16:46 Codeine; ll1 16:46 Demerol; ll1 16:46 metoclopramide HCl; ll1 16:46 Stadol; ll1 - PMHx: 16:46 Panic Attacks; Hepatitis; Hypertension; Migraines; COPD; esophageal varices; HIV; ll1 Chronic pain; Bipolar disorder; Anxiety; Atrial Fib; - PSHx: 16:46 Appendectomy; Cholecystectomy; ll1 - Immunization history:: Flu vaccine status is unknown. - Social history:: Smoking status: Patient reports the use of cigarette tobacco products, smokes one-half pack cigarettes per day. - Family history:: not pertinent. Screenin:40 Abuse screen: Denies threats or abuse. Nutritional screening: No deficits noted. ll2 Tuberculosis screening: No symptoms or risk factors identified. Fall Risk IV access (20 points). Ambulatory Aid- None/Bed Rest/Nurse Assist (0 pts). Gait- Normal/Bed Rest/Wheelchair (0 pts) Mental Status- Oriented to own ability (0 pts). Total Hauser Fall Scale indicates No Risk (0-24 pts). Assessment: 17:35 Also complains of no other symptoms. Tenecteplase (TNKase) screening: ll2 Contraindications: No EKG evidence of Acute Myocardial Infarction with ST elevation. Reassessment: see triage assessment. Pain: Complains of pain in xyphoid area and mid-sternal area Pain does not radiate. Pain currently is 10 out of 10 on a pain scale. Pain began suddenly. Neuro: Level of Consciousness is awake, alert, obeys commands, Oriented to person, place, time, situation. Cardiovascular: Reports leaving the ED and getting in her husbands vehicle when she was stricken with immense pain. Capillary refill < 3 seconds Patient's skin is warm and dry. Respiratory: Airway is patent Respiratory effort is even, unlabored, Respiratory pattern is regular, symmetrical. GI: No signs and/or symptoms were reported involving the gastrointestinal system. GI: Patient currently denies nausea. : No signs and/or symptoms were reported regarding the genitourinary system. EENT: No signs and/or symptoms were reported regarding the EENT system. Derm: Skin is intact, is healthy with good turgor, Skin is dry. Musculoskeletal: Circulation, motion, and sensation intact. Range of motion: intact in all extremities. 18:38 Reassessment: No changes from previously documented assessment. Patient and/or family ll2 updated on plan of care and expected duration. Pain level reassessed. Patient is alert, oriented x 3, equal unlabored respirations, skin warm/dry/pink. Patient denies pain at this time. Patient states symptoms have improved. 18:45 Reassessment: O2 sats around 88% placed on 2L via NC. ll2 20:04 Reassessment: pt reports increased pain in midsternal area, requested meds for pain. ll2 she again refused the nitro due to it causing a headache, reported i had no other orders for pain meds at this time. 20:23 Reassessment: Patient and/or family updated on plan of care and expected duration. Pain ll2 level reassessed. Patient is alert, oriented x 3, equal unlabored respirations, skin warm/dry/pink. 21:12 Reassessment: No changes from previously documented assessment. Patient and/or family ll2 updated on plan of care and expected duration. Pain level reassessed. Patient is alert, oriented x 3, equal unlabored respirations, skin warm/dry/pink. 22:13 Reassessment: Patient ambulated to bathroom with a steady gait, no distress noted. aj1 22:16 Reassessment: Patient appears in no apparent distress at this time. No changes from aj1 previously documented assessment. Patient and/or family updated on plan of care and expected duration. Pain level reassessed. Patient is alert, oriented x 3, equal unlabored respirations, skin warm/dry/pink. Vital Signs: 16:45 BP 160 / 136; Pulse 79; Resp 22; Temp 97.4; Pulse Ox 95% ; Pain 10/10; ll1 17:33 BP 128 / 72; Pulse 121; Resp 14; Pulse Ox 93% ; Pain 10/10; ll2 17:49 BP 106 / 75; Pulse 78; Resp 16; Temp 98.6; Pulse Ox 97% on 2 lpm NC; ll2 18:44 BP 99 / 75; Pulse 89; Resp 16; Temp 97.8; Pulse Ox 88% on R/A; Pain 4/10; ll2 19:45 BP 107 / 92; Pulse 68; Resp 15; Pulse Ox 94% on 2 lpm NC; ll2 20:45 BP 106 / 75; Pulse 84; Resp 17; Pulse Ox 100% on 2 lpm NC; ll2 21:59 BP 107 / 76; Pulse 89; Resp 16; Pulse Ox 100% on 2 lpm NC; ll2 ED Course: 16:35 Patient arrived in ED. ds1 16:46 Triage completed. ll1 16:47 Arm band placed on Patient placed in an exam room, on a stretcher. ll1 16:57 Christine Yates, ASHLEY is Primary Nurse. ll2 17:00 Justus Kolb MD is Attending Physician. thomas 17:29 Brandon Shin is Hospitalizing Provider. thomas 17:39 Inserted saline lock: 24 gauge in right forearm, using aseptic technique. Patient ll2 maintains SpO2 saturation greater than 95% on room air. 17:41 Patient has correct armband on for positive identification. Bed in low position. Call ll2 light in reach. Side rails up X 1. property assessment monitor on. Pulse ox on. NIBP on. 20:25 Pt swabbed for COVID-19. jp3 22:14 Report received from Nabil Yates RN. aj1 22:48 Report given to ASHLEY Ziegler on 4th floor. aj1 23:07 No provider procedures requiring assistance completed. Patient admitted, IV remains in aj1 place. Administered Medications: 17:31 Drug: Zofran (Ondansetron) 4 mg Route: IVP; Site: right forearm; ll2 20:24 Follow up: Response: No adverse reaction ll2 17:32 Drug: morphine 4 mg Route: IVP; Site: right forearm; ll2 20:24 Follow up: Response: No adverse reaction; Pain is decreased; RASS: Alert and Calm (0) ll2 19:34 Not Given (Patient Refused): Nitro-Bid Ointment 2 % 1 inches Transdermal once ll2 Outcome: 17:30 Decision to Hospitalize by Provider. thomas 23:07 Admitted to Tele accompanied by tech, via wheelchair, with oxygen. aj1 23:07 Condition: good 23:07 Instructed on the need for admit, Demonstrated understanding of instructions. 23:07 Patient left the ED. aj1 Signatures: Teresa Guerrero RN RN aj1 Justus Kolb MD MD cha [place], Demi ds1 Josse Oliveira jp3 Christine Yates RN RN ll2 Yanira De Jesus RN RN ll1 Corrections: (The following items were deleted from the chart) 20:15 19:49 BP 74 / 63; Pulse 68bpm; Resp 15bpm; Pulse Ox 94% 2 lpm Nasal Cannula; Temp ll2 98.6F; Pain 8/10; ll2
[2020-02-02 18:04] LABS: Absolute Lymphocytes (CBC) 1.5 K/uL (0.7-4.9); Basophils % 0.6 % (0-1.3); Hematocrit 40.2 % (36.0-45.0); Lymphocytes % 17.7 % (15.3-44.8); MPV 7.7 fL (7.6-11.3); RBC Red Blood Cell Count 4.92 M/uL (3.86-4.86)
[2020-02-02 18:06] LABS: Protime INR 1.33
[2020-02-02 18:19] LABS: ALT/SGPT 30 U/L (12-78); AST/SGOT 27 U/L (15-37); Albumin 3.2 g/dL (3.4-5.0); Alkaline Phosphatase 76 U/L (45-117); BUN Blood Urea Nitrogen 26 mg/dL (7-18); Bicarbonate 29 mmol/L (21-32); Bilirubin Direct 0.1 mg/dL (0-0.2); Bilirubin Total 0.5 mg/dL (0.2-1.0); Glucose Level 112 mg/dL (74-106); Magnesium 2.4 mg/dL (1.8-2.4); NT PRO-BNP 2021 pg/mL (<125); Potassium 3.6 mmol/L (3.5-5.1); Protein, Total 7.4 g/dL (6.4-8.2); Sodium Level 141 mmol/L (136-145); Troponin (Emerg Dept Use Only) < 0.02 ng/mL (0.0-0.045)
--- NOTE | 2020-02-02 19:55 | P.HP ---
Certification for Inpatient Patient admitted to: Observation With expected LOS: <2 Midnights Patient will require the following post-hospital care: None Practitioner: I am a practitioner with admitting privileges, knowledge of patient current condition, hospital course, and medical plan of care. Services: Services provided to patient in accordance with Admission requirements found in Title 42 Section 412.3 of the Code of Federal Regulations <Jhonny Skelton - Last Filed: 02/03/20 00:12> Patient History Date of Service: 02/03/20 Reason for admission: Chest pain History of Present Illness: 65-year-old female with a past medical history of HIV, chronic pain, liver cirrhosis, hepatitis, bipolar disorder, panic attacks, esophageal varices, anxiety, essential hypertension, COPD and chronic atrial fibrillation who was seen in the ER earlier in the day and discharged home returns now complaining of chest pain. Patient describes a pain in the anterior substernal region of her chest and states that it is a 10/10. In the emergency room patient continues with pain. States it is a little better after IV morphine. Describes it as an 8/10. Patient had been seen in the ER earlier in the day for anxiety. Also states that she has run out of her medications in particular her metoprolol and her Eliquis. Patient is alert and oriented x3, in no distress. She has a history of bipolar disorder, anxiety and depression. States that when she was leaving she had a panic attack and now has chest pain. Troponins are negative x2 at < 0.02. EKG is unremarkable. States he is short of breath despite oxygen saturations of 97% on room air. Patient will be placed in observation and further evaluated. - Past Medical/Surgical History Diabetic: No -: HIV diag ~ [address] Yohan Cardenas in [place] -: Bipolar disorder Dr Krause in [place] -: Hypertension -: COPD -: Tobacco abuse -: Alcohol abuse -: Anemia likely of chronic disease -: constrictor of urethia -: Appendectomy -: Cholecystectomy -: left shoulder rotated cuff -: Right foot repair -: Right shoulder replacement -: left shoulder rotated cuff Psychosocial/ Personal History: She lives at home. She is not . - Family History Father -: Kidney disease Mother -: Other (see notes) Notes: Epilepsy, chronic pain - Social History Smoking Status: Former smoker Alcohol use: No CD- Drugs: No Caffeine use: Yes Place of Residence: Home <Jhonny Skelton - Last Filed: 02/03/20 00:12> Date of Service: 02/03/20 <judit chen - Last Filed: 02/03/20 14:18> Allergies fentanyl Allergy (Severe, Verified 02/03/20 00:08) Hives butorphanol tartrate [From Stadol] Allergy (Verified 02/03/20 00:08) confusion metoclopramide HCl [From Reglan] Allergy (Verified 02/03/20 00:08) Shortness of breath sulfamethoxazole [From Bactrim] Allergy (Verified 02/03/20 00:08) Hives/Rash trimethoprim [From Bactrim] Allergy (Verified 02/03/20 00:08) Hives/Rash Bactrim DS Allergy (Intermediate, Uncoded 02/03/20 00:08) Nausea/Vomiting Home Medications: Raltegravir Potassium [Isentress] 400 mg PO BID 02/28/12 Lorazepam [Ativan] 2 mg PO BID* PRN 04/02/12 Sertraline [Zoloft*] 200 mg PO DAILY 09/15/12 Emtricitabine/Tenofov Alafenam [Descovy 200-25 mg Tablet] 1 tab PO BEDTIME 10/05/16 Esomeprazole Mag Trihydrate [Nexium] 40 mg PO BID 06/18/19 Triamterene/Hydrochlorothiazid [Triamterene-Hctz 37.5-25 mg Cp] 1 each PO DAILY 06/18/19 Hydralazine HCl 50 mg PO BID #60 tablet 06/22/19 Metformin HCl 500 mg PO DAILY #30 tablet 06/22/19 Metoprolol Tartrate 100 mg PO BID #60 02/03/20 Review of Systems General: Other (Anxious), As per HPI Eyes: Unremarkable ENT: Unremarkable Respiratory: Shortness of Breath, As per HPI Cardiovascular: Chest Pain, As per HPI Gastrointestinal: Unremarkable Genitourinary: Unremarkable Musculoskeletal: Unremarkable Integumentary: Unremarkable Neurological: Unremarkable Lymphatics: Unremarkable <Jhonny Skelton - Last Filed: 02/03/20 00:12> Physical Examination - Vital Signs Temperature: 97.1 F Blood Pressure: 93/73 Pulse: 87 Respirations: 18 Pulse Ox (%): 99 (RA) - Physical Exam General: Alert, In no apparent distress, Oriented x3, Other (Anxious) HEENT: Atraumatic, Normocephalic, PERRLA, Mucous membr. moist/pink Neck: Supple, No Thyromegaly, Other (Trachea midline) Respiratory: Clear to auscultation bilaterally, Normal air movement Cardiovascular: No edema, Normal pulses Gastrointestinal: Normal bowel sounds, Soft and benign, Non-distended Musculoskeletal: No clubbing, No swelling, No contractures, No erythema Integumentary: No rashes, No breakdown, No significant lesion, No tenderness/swelling Neurological: Normal gait, Normal speech, Normal strength at 5/5 x4 extr, Normal tone - Studies Laboratory Data (last 24 hrs) 02/02/20 17:43: PT 15.6 H, INR 1.33 02/02/20 17:43: WBC 8.3 D, Hgb 12.9, Hct 40.2, Plt Count 266 02/02/20 17:43: Sodium 141, Potassium 3.6, BUN 26 H, Creatinine 1.13, Glucose 112 H, Magnesium 2.4, Total Bilirubin 0.5, AST 27, ALT 30, Alkaline Phosphatase 76 <Jhonny Skelton - Last Filed: 02/03/20 00:12> - Studies Laboratory Data (last 24 hrs) 02/02/20 17:43: PT 15.6 H, INR 1.33 02/02/20 17:43: WBC 8.3 D, Hgb 12.9, Hct 40.2, Plt Count 266 02/02/20 17:43: Sodium 141, Potassium 3.6, BUN 26 H, Creatinine 1.13, Glucose 112 H, Magnesium 2.4, Total Bilirubin 0.5, AST 27, ALT 30, Alkaline Phosphatase 76 <judit chen - Last Filed: 02/03/20 14:18> Assessment and Plan - Plan Impression: Chest pain: Chronic atrial fibrillation: Essential hypertension: History of HIV: History of liver cirrhosis with esophageal varices: COPD: History of bipolar disorder with anxiety, panic attacks and depression: Noncompliance with medications: Plan: Chest pain: Chest pain improved after IV morphine. Will place patient on continuous telemetry. Troponins negative x2. Will continue trending. Echocardiogram from 06/18/2019 shows a EF of 64%, trace TR. Chronic atrial fibrillation: Patient is not compliant with her metoprolol. States she ran out. Will resume home dosing of metoprolol 100 mg b.i.d.. Continue telemetry. Essential hypertension: Will resume all medications once verified. Monitor blood pressure History of HIV: Patient has a history of HIV 30 years ago. Currently on medication. Will resume all medications once verified. History of liver cirrhosis with esophageal varices: History of alcohol abuse for many years. Currently patient states that she will have an occasional beer. No indications of active bleeding. COPD: Not requiring O2 support. Does not use home oxygen. Requesting home oxygen. O2 saturations of 96% on room air. States that she feels like she cannot breathe. Likely related to panic attacks and anxiety. History of bipolar disorder with anxiety, panic attacks and depression: Patient with multiple mental issues. Noncompliant with medications. Will resume all medications once verified. Noncompliance with medications: Counseled. Discharge Plan: Home Plan to discharge in: 48 Hours - Advance Directives Does patient have a Living Will: No Does patient have a Durable POA for Healthcare: Yes - Code Status/Comfort Care Code Status Assessed: Yes Time Spent Managing Pts Care (In Minutes): 55 <Jhonny Skelton - Last Filed: 02/03/20 00:12> Physician Review: Patient Assessed, Agree with Above Assessment and Plan Physician Review Additional Text: Chest pain Anxiety state Hiatal hernia Gastritis HIV positive Chronic atrial fibrillation Trend troponin. Protonix p.o. Resume metoprolol for AFib rate control. <judit chen - Last Filed: 02/03/20 14:18>
[2020-02-02] MEDS ORDERED: NA CHLORIDE 0.9% 1,000 ML IV SCH (20:00)
[2020-02-02] MEDS ORDERED: LORAZEPAM 1 MG TABLET PO PRN (20:14)
[2020-02-02 23:22] VITALS: BMI 37.1
[2020-02-02] MEDS: DULERA 200/5 (MOMETASONE/FORMOTEROL) INHALER IH SCH (23:30)
[2020-02-02] MEDS: BUSPIRONE HCL 5 MG TABLET PO SCH (23:30)
[2020-02-02] MEDS: HYDRALAZINE HCL 25 MG TABLET PO SCH (23:30)
[2020-02-02] MEDS: NIFEDIPINE XL 60 MG TABLET PO SCH (23:30)
[2020-02-02] MEDS: METOPROLOL TAR 50 MG TAB PO SCH (23:30)
[2020-02-03] MEDS ORDERED: MORPHINE 2 MG/ML SYR IV PRN (00:18)
[2020-02-03] MEDS ORDERED: MORPHINE 2 MG/ML SYR IM PRN (03:04)
[2020-02-03 06:47] LABS: Absolute Lymphocytes (CBC) 1.2 K/uL (0.7-4.9); Basophils % 0.4 % (0-1.3); Hematocrit 37.8 % (36.0-45.0); Lymphocytes % 14.4 % (15.3-44.8); MPV 7.5 fL (7.6-11.3); RBC Red Blood Cell Count 4.67 M/uL (3.86-4.86)
[2020-02-03 07:01] LABS: Magnesium 2.4 mg/dL (1.8-2.4); Potassium 3.4 mmol/L (3.5-5.1)
[2020-02-03 07:30] LABS: Urine Appearance CLEAR; Urine Bilirubin NEGATIVE (NEG); Urine Blood NEGATIVE (NEG); Urine Color YELLOW; Urine Glucose NEGATIVE (NEG); Urine Protein NEGATIVE (NEG); Urine Urobilinogen 0.2 mg/dL (0.2-1.0)
[2020-02-03 07:55] LABS: Urine Microscopic Reflex ORDER UMIC
[2020-02-03 08:00] LABS: Urine Bacteria <20 /HPF (<20); Urine Culture Reflex Order REFLEXED; Urine Mucus 2+ /HPF (NONE SEEN); Urine RBC <5 /HPF (NONE SEEN); Urine Urothelial Cells <5 /HPF (NONE SEEN)
[2020-02-03] MEDS: DULERA 200/5 (MOMETASONE/FORMOTEROL) INHALER IH SCH (08:00)
[2020-02-03] MEDS ORDERED: POTASSIUM 25 MEQ EFFERV TAB PO ONE (08:08)
[2020-02-03] MEDS: BUSPIRONE HCL 5 MG TABLET PO SCH (08:30)
[2020-02-03] MEDS: HYDRALAZINE HCL 25 MG TABLET PO SCH (08:31)
[2020-02-03] MEDS: METOPROLOL TAR 50 MG TAB PO SCH (08:31)
[2020-02-03] MEDS: NIFEDIPINE XL 60 MG TABLET PO SCH (08:32)
[2020-02-03] MEDS ORDERED: POTASSIUM CL SA 10 MEQ TAB PO ONE (08:35)
[2020-02-03] MEDS ORDERED: lisinopriL 20 MG TAB PO SCH (09:00)
[2020-02-03] MEDS ORDERED: RALTEGRAVIR POTASSIUM 400 MG TABLET PO SCH (09:00)
[2020-02-03] MEDS ORDERED: METFORMIN HCL 500 MG TAB PO SCH (09:00)
[2020-02-03] MEDS ORDERED: SERTRALINE HCL 100 MG TAB PO SCH (09:00)
--- NOTE | 2020-02-03 09:45 | EKG ---
Test Date: 2020-02-02 Test Time: 17:14:05 Care Specialist: FAM MEASUREMENT RESULTS: Intervals: Rate: 87 IN: QRSD: 90 QT: 434 QTc: 522 [place]: P: IN: QRS: 10 T: 105 INTERPRETIVE STATEMENTS: Atrial fibrillation Nonspecific T wave abnormality, probably digitalis effect Prolonged QT Abnormal ECG Compared to ECG 02/02/2020 11:37:33 T-wave abnormality now present Prolonged QT interval now present Left ventricular hypertrophy no longer present ST (T wave) deviation no longer present Electronically Signed On 02-03-20 09:44:09 CDT by Per Crane
[2020-02-03] MEDS ORDERED: MAGNES/ALUMIN/SIMET 30ML UCUP PO PRN (13:39)
[2020-02-03] MEDS ORDERED: MAGNES/ALUMIN/SIMET 30ML UCUP PO ONE (14:00)
[2020-02-03] MEDS ORDERED: PANTOPRAZOLE 40MG TABLET PO ONE (14:00)
--- NOTE | 2020-02-03 14:29 | P.DS ---
Admission Date: 02/02/20 Discharge Date: 02/03/20 Disposition: ROUTINE DISCHARGE Reason for Admission: Chest pain - Problems (1) Gastritis Current Visit: Yes Status: Acute (2) Atrial fibrillation Current Visit: Yes Status: Acute (3) Diabetes mellitus Current Visit: No Status: Acute (4) Hypertension Current Visit: No Status: Acute (5) Anxiety Onset Date: 05/26/15 Current Visit: No Status: Chronic (6) Bipolar disorder Onset Date: 05/26/15 Current Visit: No Status: Chronic Qualifiers: (7) HIV positive Onset Date: 10/23/14 Current Visit: No Status: Chronic (8) Hiatal hernia with GERD Onset Date: 02/26/16 Current Visit: No Status: Chronic Brief History of Present Illness: 65-year-old woman with a history of HIV, large hiatal hernia with gastritis and GERD, history of anxiety disorder, atrial fibrillation presented to the emergency department with chest pain and feeling of anxiety. Patient was noted to be in atrial fibrillation with RVR. She reported run out of her metoprolol. Patient was given a shot of IV metoprolol which brought her heart rate under control. Patient was subsequently discharged from the ED only to return again stating she had a panic attack and was complaining of chest pain. Her initial troponin was negative. Patient was placed under observation for ACS rule out. Hospital Course: Patient placed under observation. Troponin trended came back negative. She was complaining of chest pain and epigastric pain. Noted patient has a history of large hiatal hernia. She was treated with PPI. She also has a lot of anxiety. Her home anxiety medications were given during the hospital stay. ACS has been ruled out. Case was discussed with Dr. Montes who stated patient will need surgery for hiatal hernia but has high risk factors and has recommended the surgery to be done in a tertiary center. Dr. Montes recommended follow up with him as an outpatient. ACS has been ruled out. Patient is discharged to follow with Dr. Montes. Vital Signs/Physical Exam: Temp Pulse Resp BP Pulse Ox 97.9 F 79 18 109/76 98 02/03/20 11:28 02/03/20 11:28 02/03/20 11:28 02/03/20 11:28 02/03/20 11:28 General: In no apparent distress HEENT: Mucous membr. moist/pink Respiratory: Clear to auscultation bilaterally, Normal air movement Cardiovascular: Normal S1 S2, Irregular heart rate/rhythm Gastrointestinal: Non-distended Musculoskeletal: No swelling Neurological: Other (Nonfocal.) Laboratory Data at Discharge: WBC 8.1 K/uL (4.3-10.9) 02/03/20 06:36 Hgb 12.3 g/dL (12.0-15.0) 02/03/20 06:36 Hct 37.8 % (36.0-45.0) 02/03/20 06:36 Plt Count 195 K/uL (152-406) D 02/03/20 06:36 PT 15.6 SECONDS (9.5-12.5) H 02/02/20 17:43 INR 1.33 02/02/20 17:43 Sodium 141 mmol/L (136-145) 02/03/20 06:36 Potassium 3.4 mmol/L (3.5-5.1) L 02/03/20 06:36 BUN 39 mg/dL (7-18) H 02/03/20 06:36 Creatinine 1.67 mg/dL (0.55-1.3) H 02/03/20 06:36 Glucose 109 mg/dL (74-106) H 02/03/20 06:36 Magnesium 2.4 mg/dL (1.8-2.4) 02/03/20 06:36 Total Bilirubin 0.5 mg/dL (0.2-1.0) 02/02/20 17:43 AST 27 U/L (15-37) 02/02/20 17:43 ALT 30 U/L (12-78) 02/02/20 17:43 Alkaline Phosphatase 76 U/L (45-117) 02/02/20 17:43 Troponin I < 0.02 ng/mL (0.0-0.045) 02/03/20 11:55 Home Medications: Raltegravir Potassium [Isentress] 400 mg PO BID 02/28/12 Lorazepam [Ativan] 2 mg PO BID* PRN 04/02/12 Sertraline [Zoloft*] 200 mg PO DAILY 09/15/12 Emtricitabine/Tenofov Alafenam [Descovy 200-25 mg Tablet] 1 tab PO BEDTIME 10/05/16 Esomeprazole Mag Trihydrate [Nexium] 40 mg PO BID 06/18/19 Triamterene/Hydrochlorothiazid [Triamterene-Hctz 37.5-25 mg Cp] 1 each PO DAILY 06/18/19 Hydralazine HCl 50 mg PO BID #60 tablet 06/22/19 Metformin HCl 500 mg PO DAILY #30 tablet 06/22/19 Metoprolol Tartrate 100 mg PO BID #60 02/03/20 New Medications: Metoprolol Tartrate 100 mg PO BID #60 Diet: AHA (Soft diet.) Activity: Ad pricila Followup: Loco Montes MD [ACTIVE - CAN ADMIT] - (Within 2 weeks.)
[2020-02-03 16:11] VITALS: BP 109/69; TEMP 97.2; O2SAT 94
[2020-02-03] MEDS ORDERED: RALTEGRAVIR POTASSIUM 400 MG PO SCH (21:00)
[2020-02-03] MEDS ORDERED: PANTOPRAZOLE 40MG TABLET PO SCH (21:00)
[2020-02-03] MEDS ORDERED: EMTRICITABINE PO SCH (21:00)
[2020-02-03] MEDS ORDERED: TENOFOV ALAFENAM PO SCH (21:00)
[2020-02-04] MEDS ORDERED: MAXZIDE (HCTZ 25/TRIAMTERENE 37.5MG) TAB PO SCH (09:00)
== END 2020-02-03 16:05 | disposition home or self-care (01) ==
LOC: ER 16:33 → ERHOLD 19:44 → 4TH 22:50
PROVIDERS: ADMIT Internal Medicine; ATTEND Internal Medicine
DX: R07.9 Chest pain, unspecified (principal); K29.70 Gastritis, unspecified, without bleeding; K44.9 Diaphragmatic hernia without obstruction or gangrene; I48.20 Chronic atrial fibrillation, unspecified; I48.92 Unspecified atrial flutter; I10 Essential (primary) hypertension; K74.60 Unspecified cirrhosis of liver; I85.10 Secondary esophageal varices without bleeding; F10.10 Alcohol abuse, uncomplicated; J44.9 Chronic obstructive pulmonary disease, unspecified; G89.29 Other chronic pain; K75.9 Inflammatory liver disease, unspecified; K21.9 Gastro-esophageal reflux disease without esophagitis; D64.9 Anemia, unspecified; F31.9 Bipolar disorder, unspecified; F41.0 Panic disorder [episodic paroxysmal anxiety]; F41.9 Anxiety disorder, unspecified; F32.9 Major depressive disorder, single episode, unspecified; N35.92 Unspecified urethral stricture, female; Z20.828 Contact with and (suspected) exposure to other viral communicable diseases; Z21 Asymptomatic human immunodeficiency virus [HIV] infection status; Z90.49 Acquired absence of other specified parts of digestive tract; Z88.3 Allergy status to other anti-infective agents; Z88.6 Allergy status to analgesic agent; Z87.891 Personal history of nicotine dependence; Z91.14 Patient's other noncompliance with medication regimen; Z84.1 Family history of disorders of kidney and ureter
CPT/HCPCS: 96361; 93005 ×2; 87088; 85025 ×3; 87086; 80048 ×3; 36415 ×2; 83735 ×3; 85610 ×2; 80076 ×2; 87077; 87186; 84484 ×5; 83880 ×2; 71045; 96375 ×2; 96374 ×2; 99285 ×2; U0003; J2270 ×2; J7040; J7030; J2405 ×2; G0378 ×2; 81003; 81015; J3490; J7606

== ENCOUNTER 2020-02-15 11:20 | Emergency (ER) | payer OTHER ==
--- OUTSIDE RECORDS SUMMARY | 2020-02-15 11:21 | XMS REPORT | Clinical Summary ---
:1955 Author Organization [facility] Address [address] [place] [address] Care Team Providers Name Role Phone Asked, [...] INFLUENZA VACCINE 12/22/2019 Implants Implanted Type Area Veterinary Parasitologist Device Shelf Model / Identifier Expiration Serial / Date Lot Versa-Dial/Comp Ti Std Taper Used W/25mm Glenoid Basplate - [id number] N/A: N/A [employer] 01/22/2026 [id number] / Implanted: Qty: 1 on 10/19/2016 by Austin Bowles MD at [facility] IMPLANT / DEVICES [id number] 41mm Comprehensive Reverse Shoulder Glenosphere Ba - [id number] I PM N/A: N/A [employer] 11/21/2023 [id number] / Implanted: Qty: 1 on 10/19/2016 by Austin Bowles MD at [facility] IMPLANT / DEVICES [id number] Arcom Xl 44-41 Std +3 Humeral Brg - [id number] IPM Left: [employer] 07/20/2017 XL [id number] / Implanted: Qty: 1 on 10/19/2016 by Austin Bowles MD at [facility] IMPLANT Shoulder / DEVICES [id number] Humeral Tray With Locking Ring +5 Left: [employer] 03/31/2026 [id number] / Implanted: Qty: 1 on 10/19/2016 by Austin Bowles MD at [facility] Shoulder / [id number] Results Not on fileafter 02/14/2019 Advance Directives For more information, please contact: [phone] Type Date Recorded Patient Set Up Mechanic Automatic Line Explanati on Advance Directives, Living Will and Medical Power of Lcac Operator
--- OUTSIDE RECORDS SUMMARY | 2020-02-15 11:22 | XMS REPORT | Continuity of Care Document ---
:1955 Author Organization [facility] t Address [address] [place] [address] Care Team Providers Name Role Phone Asked, Pcp Primary Care Physician Unavailable DO SYL Attending Clinician Unavailable DO SYL Admitting Clinician Unavailable Problems Condition Condition Condition Status Onset Resolution Last Treating Co mments Source Name Details Category Date Date Treatment Clinician Date S/p S/p Disease Active [place] reverse reverse 530 Methodi 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:00: 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 Unstable Unstable Disease [facility] 3 Methodi 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:00: st shoulder shoulder [...] Date Quantity Comments Source Sex Assigned At [facility] ethodist Cigarettes smoked 2016-11-03 2016-11-03 Derrick Jean current (pack per 00:00:00 00:00:00 day) - Reported Tobacco use and 2016-11-03 2016-11-03 Never used Derrick Corbin ethodist exposure 00:00:00 00:00:00 Alcohol intake 2016-11-03 2016-11-03 Current drinker Porsha on Scientologist 00:00:00 00:00:00 of alcohol (finding) Alcohol Comment 2016-09-23 2016-09-23 rare Derrick Corbin ethodist 00:00:00 00:00:00 Smoking Status Start Date Stop Date Source Current every day smoker 2016-11-03 00:00:00 Kilo ston Scientologist Medications Ordered Filled Start Stop Current Ordering [...] tablet 00:00: st 00 ISENTRESS 2017-0 Yes TK 1 T PO Kilo lema 400 mg 3-18 BID Methodi tablet 00:00: st 00 Procedures This patient has no known procedures. Plan of Care Planned Activity Planned Date Details Comments Source Future Scheduled 2019-12-22 INFLUENZA VACCINE [place] [facility] Test 00:00:00 [code = INFLUENZA VACCINE] Future Scheduled 2006-01-22 BREAST CANCER [facility] thodist Test 00:00:00 SCREENING [code = BREAST CANCER SCREENING] Future Scheduled 2006-01-22 COLONOSCOPY SCREENING [facility] Scientologist Test 00:00:00 [code = COLONOSCOPY SCREENING] Future Scheduled 2006-01-22 SHINGLES VACCINES [place] [facility] Test 00:00:00 (#1) [code = SHINGLES VACCINES (#1)] Future Scheduled 1977-01-22 Screening for [facility]odist Test 00:00:00 malignant neoplasm of cervix (procedure) [code = 862836147] Results Test Description Test Time Test Comments [...] (qualifier value) Not Detected N URINALYSIS WITH [id number] 10:57:00 Test Item Value Reference Range Interpretation Comments Color (test code = UCOLR) Dk. Yellow Clarity (test code = UCLAR) Hazy Glucose (test code = UGLUC) NEGATIVE NEGATIVE N Bilirubin (test code = UBILI) NEGATIVE NEGATIVE N Ketones (test code = UKET) NEGATIVE NEGATIVE N Specific [place] (test code = 1.025 1.005-1.030 A USPGR) [...]
--- OUTSIDE RECORDS SUMMARY | 2020-02-15 11:23 | XMS REPORT | Clinical Summary ---
:1955 Author Organization [facility] Address [address] [place] [address] Care Team Providers Name Role Phone Rahman [...] Active tablet mouth 3 (three) times daily. emtricitabine-tenofov Take one po 30 tablet 5 10/12/2019 Active ir alafen (DESCOVY) daily tabletIndications: Symptomatic HIV infection [...] 3 Generalized anxiety (three) times disorder daily. proMETHazine 12.5 mg Take 1 tablet 9 tablet 0 01/26/2020 Active tabletIndications: by mouth every History of abdominal 4 (four) hours hernia, Chronic as needed for abdominal pain Nausea and Vomiting (N/V). traZODone 50 mg Take 1 tablet 30 tablet 0 02/08/2020 0 Active tabletIndications: by mouth at Insomnia, unspecified bedtime as type needed. May repeat once. for Insomnia for up to 30 days. traMADoL 50 mg Take 1 tablet 20 tablet 0 01/26/2020 02/02/2020 tabletIndications: by mouth every chronic pain 8 (eight) hours as needed for Pain (scale 1-3) or Pain (scale 4-6) for up to 7 days. Indications: chronic pain Active Problems Problem Noted Date Obesity (BMI 30-39.9) 05/10/2016 Anemia 02/22/2015 Hypovolemia due to hemorrhage 02/21/2015 Chest pain 02/21/2015 S/p reverse total shoulder arthroplasty 02/17/2015 Posttraumatic stress disorder 09/27/2012 Human immunodeficiency virus (HIV) disease 11/18/2010 Bipolar 2 disorder 11/18/2010 Chronic hepatitis C 11/18/2010 Hypertension 11/18/2010 Encounters Date Type Specialty Care Team Description 02/06/2020 Telephone Infectious Disease Serina Cardenas PA 01/26/2020 Emergency Emergency Medicine CaridadElsa kauffman a bdominal pain (Primary Dx); JOSE M Castro Abdominal pain, unspecified abdominal location; History of abdo michelle hernia; History of marco roesophageal reflux (GERD) 01/26/2020 Travel 01/25/2020 Telemedicine Visit Santiago Mendez PA 01/16/2020 Telephone Infectious Disease Bebeto Cardenas PA Appointment from Last 3 Months Immunizations Name Administration [...] or suspected to have Coronavirus / COVID-19? 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 CONSULTANT Body Mass Index 37.76 07/09/2019 9:33 AM MEN'S CUSTOM HAIR PIECE CONSULTANT Plan of Treatment Health Maintenance Due Date [...] , SERIES 10/04/2001 Implants Implanted Type Area Hydroelectric Station Chief Device Shelf Model / Identifier Expiration Serial / Lot Date Central Screw SHOULDER Left: Biomet 03/23/2024 [id number] / Implanted: Qty: 1 on 02/17/2015 by Roland Dixon MD at [facility] Shoulder [id number] / [id number] Mini Humeral Stem SHOULDER Left: Biomet 07/31/2024 1 [id number] / Implanted: Qty: 1 on 02/17/2015 by Roland Dixon MD at [facility] Shoulder [id number] / [id number] Fixed Locking Screw SHOULDER Left: Biomet 5 [id number] / Implanted: Qty: 1 on 02/17/2015 by Roland Dixon MD at [facility] Shoulder [id number] / [id number] Glenosphere SHOULDER Left: Biomet 12/05/2024 [id number] / Implanted: Qty: 1 on 02/17/2015 by Roland Dixon MD at [facility] Shoulder [id number] / [id number] Fixed Locking Screw SHOULDER Left: Biomet 12/30/2024 [id number] / Implanted: Qty: 1 on 02/17/2015 by Roland Dixon MD at [facility] Shoulder [id number] / [id number] Fixed Locking Screw SHOULDER Left: Biomet 12/31/2024 [id number] / Implanted: Qty: 1 on 02/17/2015 by Roland Dixon MD at [facility] Shoulder 0 [id number] / [id number] Humeral Tray With Locking Ring SHOULDER Left: Biomet 12/16/2024 [id number] / Implanted: Qty: 1 on 02/17/2015 by Roland Dixon MD at [facility] Shoulder [id number] / [id number] Glensphere Mini Baseplate SHOULDER Left: Biomet 01/21 [id number] / Implanted: Qty: 1 on 02/17/2015 by Roland Dixon MD at [facility] Shoulder [id number] / [id number] Humeral Bearing SHOULDER Left: Biomet 12/12/2019 XL- [id number] / Implanted: Qty: 1 on 02/17/2015 by Roland Dixon MD at [facility] Shoulder [id number] / [id number] Fixed Locking Scew SHOULDER Left: Biomet 12/11/2024 [id number] / Implanted: Qty: 1 on 02/17/2015 by Roland Dixon MD at [facility] Shoulder 8 [id number] / [id number] Procedures Procedure Name Priority Date/Time Associated Comments Diagnosis XR ABDOMEN ACUTE SERIES STAT 01/26/2020 11:21 Abdominal marry n, Results for this AM CDT unspecified procedure are i n abdominal locati on the results History of section. abdominal hernia LIPASE STAT 01/26/2020 10:28 Abdominal pain, Results for this AM CDT unspecified procedure are i n abdominal location the resul ts section. BASIC METABOLIC PANEL STAT 01/26/2020 10:28 Abdominal pain, Results for this (NA, K, CL, CO2, AM CDT unspecified procedure a re in GLUCOSE, BUN, abdominal location the resu lts CREATININE, CA) section. HEPATIC FUNCTION PANEL STAT 01/26/2020 10:28 Abdominal pain , Results for this (33460) (ALB,T.PRO,BILI AM CDT unspecified proc edure are in T,BU/BC,ALT,AST,ALK abdominal location th e results PHOS) section. CBC WITH DIFF STAT 01/26/2020 10:28 Abdominal pain, Results for this AM CDT unspecified procedure are i n abdominal location the resul ts section. NOTICE OF PRIVACY Routine 01/26/2020 9:50 PRACTICES AM CDT CONSENT/REFUSAL FOR Routine 01/26/2020 9:49 DIAGNOSIS AND TREATMENT AM CDT EMERGENCY SERVICES Routine 01/26/2020 12:01 AGREEMENTS AND AM CDT AUTHORIZATIONS from Last 3 Months Results XR ABDOMEN ACUTE SERIES (01/26/2020 11:21 [...] of the pelvis was excluded in the [id number]. 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 [...] of the pelvis was excluded in the [id number]-gp-nezi. 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 IMPRESSION Nonobstructive bowel gas pattern. Obscuration of the left costophrenic ang le may be due to overlying structures versus a small pleural effusi on with adjacent consolidation. Preliminary Report Dictated by Resident: Momo Watkins I, Zen Hamilton MD., have reviewed th is study and agree with the above report. Performing Organization Address City/State/Zipcode Phone Number PACS/VR/DOSE CBC with Differential (01/26/2020 10:28 AM CDT) Pathologist Sig nature WBC 6.30 4.30 - 11.10 [facility] 10*3/L [facility] RBC 4.01 3.93 - 5.25 [facility] 10*6/L [facility] HGB 10.6 (L) 11.6 - 15.0 [facility] g/dL [facility] HCT 35.3 (L) 35.7 - 45.2 % [facility] MCV 88.0 80.6 - 95.5 fL [facility] MCH 26.4 25.9 - 32.8 pg [facility] MCHC 30.0 (L) 31.6 - 35.1 [facility] g/dL [facility] RDW-SD 52.6 (H) 39.0 - 49.9 fL [facility] RDW-CV 16.2 (H) 12.0 - 15.5 % [facility] PLT 192 166 - 358 [facility] 10*3/L [facility] MPV 9.5 9.5 - 12.9 fL [facility] NRBC/100 WBC 0.0 0.0 - 10.0 /100 [facility] WBCs [facility] NRBC x10^3 <0.01 10*3/L [facility] GRAN MAT (NEUT) % 66.9 % [facility] IMM GRAN % 0.60 % [facility] LYMPH % 20.0 % [facility] MONO % 11.4 % [facility] EOS % 0.8 % [facility] BASO % 0.3 % [facility] GRAN MAT x10^3(ANC) 4.21 1.88 - 7.09 [facility] 10*3/uL [facility] IMM GRAN x10^3 0.04 0.00 - 0.06 [facility] 10*3/uL [facility] LYMPH x10^3 1.26 (L) 1.32 - 3.29 [facility] 10*3/uL [facility] MONO x10^3 0.72 0.33 - 0.92 [facility] 10*3/uL [facility] EOS x10^3 0.05 0.03 - 0.39 [facility] 10*3/uL [facility] BASO x10^3 <0.03 0.01 - 0.07 [facility] 10*3/uL [facility] Specimen Blood - VENOUS Performing Organization Address City/State/Zipcode Phone Number [facility] CLIA: [id number] [place] [address] Basic Metabolic Panel (NA, K, CL, CO2, GLUCOSE, BUN, CREATININE, CA) (01/26/2020 10:28 AM CDT) [facility] nature NA 139 135 - 145 [facility] mmol/L [facility] K 3.4 (L) 3.5 - 5.0 [facility] mmol/L [facility] CL 103 98 - 108 mmol/L [facility] CO2 TOTAL 28 23 - 31 mmol/L [facility] AGAP 8 2 - 16 [facility] BUN 24 (H) 7 - 23 mg/dL [facility] GLUCOSE 98 70 - 110 mg/dL [facility] CREATININE 0.97 0.50 - 1.04 [facility] mg/dL [facility] CALCIUM 8.3 (L) 8.6 - 10.6 [facility] mg/dL [facility] eGFR Calculation 57.8 mL/min/1.73m2 [facility] (Non-[facility] LABORATORY Panamanian) eGFR Calculation 70.1 mL/min/1.73m2 [facility] () [facility] Specimen Blood - VENOUS Narrative Performed At [facility] of Glomerular Filtration Rate (GFR) [facility] and Staging of Kidney Disease* [...] tests). Performing Organization Address City/State/Zipcode Phone Number [facility] CLIA: [id number] [place] [address] Hepatic Function Panel (ALB, T.PRO, BILI T, BU/BC, ALT, AST, ALK PHOS) (01/26/2020 10:28 AM CDT) Pathologist Sig nature TOTAL BILI 0.4 0.1 - 1.1 mg/dL [facility] BILI UNCON 0.4 0.1 - 1.1 mg/dL [facility] BILI CONJ 0.0 0.0 - 0.3 mg/dL [facility] T PROTEIN 6.9 6.3 - 8.2 g/dL [facility] ALBUMIN 3.9 3.5 - 5.0 g/dL [facility] ALK PHOS 79 34 - 122 U/L [facility] ALTv 31 5 - 35 U/L [facility] AST(SGOT) 34 13 - 40 U/L [facility] Specimen Blood - VENOUS Performing Organization Address City/State/Zipcode Phone Number [facility] CLIA: [id number] [place] [address] Lipase Serum (01/26/2020 10:28 AM CDT) Pathologist Sig nature LIPASE 109 0 - 220 U/L [facility] Specimen Blood - VENOUS Performing Organization Address City/State/Zipcode Phone Number [facility] CLIA: [id number] [place] [address] NOTICE OF PRIVACY PRACTICES (01/26/2020 9:50 AM CDT) Specimen Performing Organization Address City/State/Zipcode Phone Number HIM CONSENT/REFUSAL FOR DIAGNOSIS AND TREATMENT (01/26/2020 9:49 AM CDT) Specimen Performing Organization Address City/State/Zipcode Phone Number HIM EMERGENCY SERVICES AGREEMENTS AND AUTHORIZATIONS (01/26/2020 12:01 AM CDT) Specimen Performing Organization Address City/State/Zipcode Phone Number HIM from Last 3 Months Insurance Payer Benefit Plan / Subscriber ID Effective Phone Address T ype Group Dates [facility] [id number] 2019-Pre Medicar e Adv HEALTHCARE - HEALTHCARE DUAL sent H MO MANAGED COMPLETE HMO MEDICARE [facility] [id number] 2019-Pre P O BOX Beh avioral BEHAVIORAL BEHAVIORAL [place] [id number] [place] [address] [facility] [id number] 2019-Pre Me dicaid HEALTHCARE COMM PLUS sent PLAN - MANAGED MEDICAID [employer] BEHAV OPTUM [id number] 2019-Pre B ehavioral [place] - MANAGED BEHAVIORAL sent [facility] MEDICAID [facility] Self 1955 [phone] [address] [place] [address] Advance Directives Type Date Recorded 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
--- OUTSIDE RECORDS SUMMARY | 2020-02-15 11:24 | XMS REPORT | Summary of Care ---
:1955 Author Organization [facility] Address [address] [place] [address] Care Team Providers Name Role Phone Rahman Primary Care Provider Reason for Visit Reason Comments Assessment Encounter Details Date Type Department Care Team Description 02/06/2020 Telephone [facility] Infectious [facility], ALEJO Pal Assessment Diseases- [address] [id number] [place], [place] [address] [place] [address] [place] [address] Allergies Active Allergy Reactions Severity Noted Date Comments Metoclopramide Unknown - See comments 05/28/2016 Metoclopramide Hcl Anxiety 02/14/2015 Butorphanol Tartrate Hallucinations High 07/06/2010 Sulfamethoxazole Unknown - See comments 04/23/2016 Acetaminophen-Codeine Nausea and/or Vomiting 7 documented as of this encounter (statuses as of 02/13/2020) Medications Medication Sig Dispensed Refills Start Date [...] daily. proMETHazine 12.5 mg Take 1 tablet by 9 tablet 0 01/26/2020 Active tabletIndications: mouth every 4 History of abdominal (four) hours as hernia, Chronic needed for abdominal pain Nausea and Vomiting (N/V). documented as of this encounter (statuses as of 02/13/2020) Active Problems Problem Noted Date Obesity (BMI 30-39.9) 05/10/2016 Anemia 02/22/2015 Hypovolemia due to hemorrhage 02/21/2015 Chest pain 02/21/2015 S/p reverse total shoulder arthroplasty 02/17/2015 Posttraumatic stress disorder 09/27/2012 Human immunodeficiency virus (HIV) disease 11/18/2010 Bipolar 2 disorder 11/18/2010 Chronic hepatitis C 11/18/2010 Hypertension 11/18/2010 documented as of this encounter (statuses as of 02/13/2020) Immunizations Name Administration Dates Next Due HEPATITIS [...] Telephone Encounter - Karen Reid RN - 02/13/2020 8:23 AM CDTPatient had a telemedicine visit on 01/25/20 with Justin Cardenas PA-C. Labs ordered at that time. Patient had labs drawn on 01/26/20. Telephone Encounter - Karen Reid RN - 02/07/2020 9:03 AM CDTJeff, Patient is asking if she needs labs drawn from her appointment on 01/24? There are some orders from May already in the system. Thank you Spoke with patient. She has a PCP but says that she wants to find a new one because he does not work at the hospital in her town anymore. She wants to find a doctor that will come up to the hospital when she is there and "take control" of her issue at that time. Relayed Yohan's recommendations to patient. She voiced understanding and said she will follow up with a PCP re: her blood pressure and the BP medications. She took her BP medications this morning and says her BP was good. She is feeling much better today. At an outside facility, patient said she tested negative for COVID this past week and when she was tested about two weeks ago, it was negative. She had testing done before some procedures. Reminded patient to ask GI to fax us her recent records. Patient agreed she would. Telephone Encounter - Santiago Cardenas PA - 02/06/2020 5:43 PM CDTHer HTN has been managed by her local PCP - she has a long h.o at time poorly controlled HTN I am not sure what the indication for Eliquis - not prescribed by me I saw her via telemed on 01/25/20 and she reported having an EGD that perhaps showed esophageal varices. She had an appointment with her local GI clinic that same afternoon and I gave her out fax # and asked her to ask that clinic to fax her recent records She need to see her PCP local JOE elephone Encounter - Karen Reid RN - 02/06/2020 2:10 PM CDTJeff, Please advise if it's okay for her to start back on her BP medications. She has amlodipine 10 mg, lisinopril and HCTZ and hydralazine on hand now. I recommended she go to for her high BP right now. Patient agreed. Thank you Spoke with patient. When she was in the hospital recently ([facility]), she says the doctor told her to discontinue "all" of her medications, including bp meds and even Descovy. She has been on BP medications for the last 25 years so she was uncertain about stopping medicationsall the sudden. However, She stopped them and now her BP is very high. When she was discharged from the hospital the other day her BP was 200/115, they told her it was okay and she could go home. She has also been taking triamterene HCTZ 37.5 mg at bedtime for 20 years now. (not on her current medication list). Says she was even told to stop taking Descovy, but she has not. This morning her BP was 195/110. She has not been to sleep in 2 days. I asked her to recheck her BP right now, it was BP: 167/113, P: 91. She is having a bad headache and her mind is racing. No dizziness, vision changes, chest pains or ringing in her ears. She quit taking sertraline bc doctor told her to. She says she is not going to quit taking all medications. An additional medication added when she was discharged, Eliquis 2.5 mg BID. How long will she need to take this medication for? She needs hospital follow up appointment scheduled and we need hospital notes Telephone Encounter - Katja Person - 02/06/2020 1:28 PM CDTPt called requesting to speak to Nurse. States she has still not received a call from the Nurse. Telephone Encounter - Karen Reid RN - 02/06/2020 9:35 AM CDT Trying to reach patient at [phone] (home), the call is not going thru. Will keep trying.... amLODIPine (NORVASC) 10 mg tablet Take 10 mg by mouth daily. metoprolol tartrate (LOPRESSOR) 100 mg tablet Take 100 mg by mouth 2 (two) times daily. lisinopril (PRINIVIL,ZESTRIL) 40 mg tablet Take 40 mg by mouth 2 (two) times daily. hydralAZINE (APRESOLINE) 25 mg tablet Take 25 mg by mouth daily. 01/26/20 ER visit: BP 116/82 Telephone Encounter - Katja Person - 02/06/2020 8:09 AM CDTPt states Doctor Brandon Shin in the hospital after being in observation for a hiatal hernia on Tuesday night 02/01 was told not to take her BP medications anymore. Just Metoprolol. States her BP is 195/110 this morning. Also told her to discontinue taking her buspirone 10MG that Psych told her to take. States Doctor told her she was going to if she continued to take all of this. Please advise. documented in this encounter Plan of Treatment Date Type Specialty Care Team Description 03/17/2020 Telemedicine Visit Psychiatry Jeremiah Ayala MD [address] [place] [address]. [place] [phone] Health Maintenance Due Date Last Done [...] of this encounter Implants Implanted Type Area Lunchroom Supervisor Device Shelf Model / Identifier Expiration Serial / Lot Date Central Screw SHOULDER Left: Biomet 03/23/2024 [id number] / Implanted: Qty: 1 on 02/17/2015 by Roland Dixon MD at [facility] Shoulder [id number] / [id number] Mini Humeral Stem SHOULDER Left: Biomet 07/31/2024 1 [id number] / Implanted: Qty: 1 on 02/17/2015 by Roland Dixon MD at [facility] Shoulder 4 [id number] / [id number] Fixed Locking Screw SHOULDER Left: Biomet 5 [id number] / Implanted: Qty: 1 on 02/17/2015 by Roland Dixon MD at [facility] Shoulder 8 [id number] / [id number] Glenosphere SHOULDER Left: Biomet 12/05/2024 [id number] / Implanted: Qty: 1 on 02/17/2015 by Roland Dixon MD at [facility] Shoulder [id number] / [id number] Fixed Locking Screw SHOULDER Left: Biomet 12/30/2024 [id number] / Implanted: Qty: 1 on 02/17/2015 by Roland Dixon MD at [facility] Shoulder 0 [id number] / [id number] Fixed Locking Screw SHOULDER Left: Biomet 12/31/2024 [id number] / Implanted: Qty: 1 on 02/17/2015 by Roland Dixon MD at [facility] Shoulder 0 [id number] / [id number] Humeral Tray With Locking Ring SHOULDER Left: Biomet 12/16/2024 [id number] / Implanted: Qty: 1 on 02/17/2015 by Roland Dixon MD at [facility] Shoulder 8 [id number] / [id number] Glensphere Mini Baseplate SHOULDER Left: Biomet 01/21 [id number] / Implanted: Qty: 1 on 02/17/2015 by Roland Dixon MD at [facility] Shoulder 1 [id number] / [id number] Humeral Bearing SHOULDER Left: Biomet 12/12/2019 XL- [id number] / Implanted: Qty: 1 on 02/17/2015 by Roland Dixon MD at [facility] Shoulder 5 [id number] / [id number] Fixed Locking Scew SHOULDER Left: Biomet 12/11/2024 [id number] / Implanted: Qty: 1 on 02/17/2015 by Roland Dixon MD at [facility] Shoulder 8 [id number] / [id number] documented as of this encounter Results Not on filedocumented in this encounter Insurance Payer Benefit Plan / Subscriber ID Effective Phone Address T ype Group Dates [facility] [id number] 2019-Pre Medicar e Adv HEALTHCARE - HEALTHCARE DUAL sent H MO MANAGED COMPLETE HMO MEDICARE [facility] [id number] 2019-Pre P O BOX Beh avioral BEHAVIORAL BEHAVIORAL sent [id number] [place] [address] [facility] [id number] 2019-Pre Me dicaid HEALTHCARE COMM PLUS sent PLAN - MANAGED MEDICAID [employer] [facility] OPTUM [id number] 2019-Pre B ehavioral [place] - MANAGED BEHAVIORAL sent [facility] MEDICAID [facility] [place] [facility] documented as of this encounter Advance Directives Type Date Recorded Patient Thread Winder Explanati on Advance Directives and Living 01/20/2015 9:28 AM Will Power of Copy Machine Operator 01/20/2015 9:28 AM
--- OUTSIDE RECORDS SUMMARY | 2020-02-15 11:24 | XMS REPORT | Clinical Summary ---
:1955 Author Organization [facility] Address [address] [place] [address] Care Team Providers Name Role Phone Rahman [...] comments Father ESRD Coronary Heart Disease Father [place], late 60s? 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 Plan of Treatment Health Maintenance Due Date [...] , SERIES 10/04/2001 Implants Implanted Type Area Fret Saw Operator Device Shelf Model / Identifier Expiration Serial / Lot Date Central Screw SHOULDER Left: Biomet 03/23/2024 [id number] / Implanted: Qty: 1 on 02/17/2015 by Roland Dixon MD at [facility] Shoulder 3 [id number] / [id number] Mini Humeral Stem SHOULDER Left: Biomet 07/31/2024 1 [id number] / Implanted: Qty: 1 on 02/17/2015 by Roland Dixon MD at [facility] Shoulder 4 [id number] / [id number] Fixed Locking Screw SHOULDER Left: Biomet 5 [id number] / Implanted: Qty: 1 on 02/17/2015 by Roland Dixon MD at [facility] Shoulder 8 [id number] / [id number] Glenosphere SHOULDER Left: Biomet 12/05/2024 [id number] / Implanted: Qty: 1 on 02/17/2015 by Roland Dixon MD at [facility] Shoulder 7 [id number] / [id number] Fixed Locking Screw SHOULDER Left: Biomet 12/30/2024 [id number] / Implanted: Qty: 1 on 02/17/2015 by Roland Dixon MD at [facility] Shoulder 0 [id number] / [id number] Fixed Locking Screw SHOULDER Left: Biomet 12/31/2024 [id number] / Implanted: Qty: 1 on 02/17/2015 by Roland Dixon MD at [facility] Shoulder 0 [id number] / [id number] Humeral Tray With Locking Ring SHOULDER Left: Biomet 12/16/2024 [id number] / Implanted: Qty: 1 on 02/17/2015 by Roland Dixon MD at [facility] Shoulder 8 [id number] / [id number] Glensphere Mini Baseplate SHOULDER Left: Biomet 01/21 [id number] / Implanted: Qty: 1 on 02/17/2015 by Roland Dixon MD at [facility] Shoulder 1 [id number] / [id number] Humeral Bearing SHOULDER Left: Biomet 12/12/2019 XL- [id number] / Implanted: Qty: 1 on 02/17/2015 by Roland Dixon MD at [facility] Shoulder 5 [id number] / [id number] Fixed Locking Scew SHOULDER Left: Biomet 12/11/2024 [id number] / Implanted: Qty: 1 on 02/17/2015 by Roland Dixon MD at [facility] Shoulder 8 [id number] / [id number] Procedures Procedure Name Priority Date/Time Associated Comments [...] 10:28 Abdominal pain , Results for this (47328) (ALB,T.PRO,BILI AM CDT unspecified proc edure are [...] of the pelvis was excluded in the ivnud-ml-xtip. 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 [...] of the pelvis was excluded in the nopkr-fs-vbzg. 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 [...] Sig nature WBC 6.30 4.30 - 11.10 [facility] 10*3/L H[facility]PITAL [facility] RBC 4.01 3.93 - 5.25 [facility] 10*6/L [facility] HGB 10.6 (L) 11.6 - 15.0 [facility] g/dL HOSPITAL [facility] HCT 35.3 (L) 35.7 - 45.2 % [facility] LABORATORY MCV 88.0 80.6 - 95.5 fL [facility] MCH 26.4 25.9 - 32.8 pg [facility] MCHC 30.0 (L) 31.6 - 35.1 [facility] g/dL HOSPITAL [facility] RDW-SD 52.6 (H) 39.0 - 49.9 fL [facility] LABOR[facility]ORY RDW-CV 16.2 (H) 12.0 - 15.5 % [facility] LAB[facility] PLT 192 166 - 358 [facility] 10*3/L [facility] MPV 9.5 9.5 - 12.9 fL [facility] LAB[facility] NRBC/100 WBC 0.0 0.0 - 10.0 /100 [facility] WBCs HOSPITAL LAB[facility]ORY NRBC x10^3 <0.01 10*3/L [facility] LABORATORY GRAN MAT (NEUT) % 66.9 % [facility] IMM GRAN % 0.60 % [facility] LYMPH % 20.0 % [facility] MONO % 11.4 % [facility] EOS % 0.8 % [facility] LAB[facility] BASO % 0.3 % [facility] LAB[facility] GRAN MAT x10^3(ANC) 4.21 1.88 - 7.09 [facility] 10*3/uL [facility]OS[facility]ITAL LAB[facility] IMM GRAN x10^3 0.04 0.00 - 0.06 [facility] 10*3/uL [facility]ITAL [facility] LYMPH x10^3 1.26 (L) 1.32 - 3.29 [facility] 10*3/uL [facility] MONO x10^3 0.72 0.33 - 0.92 [facility] 10*3/uL [facility]ITAL [facility] EOS x10^3 0.05 0.03 - 0.39 [facility] 10*3/uL [facility] BASO x10^3 <0.03 0.01 - 0.07 [facility] 10*3/uL [facility] LABORATORY Specimen Blood - VENOUS Performing Organization Address City/State/Zipcode Phone Number [facility] CLIA: [id number] [place] [address] Basic Metabolic Panel (NA, K, CL, CO2, GLUCOSE, BUN, CREATININE, CA) (01/26/2020 10:28 AM CDT) [facility] nature NA 139 135 - 145 [facility] mmol/L [facility] LABORATORY K 3.4 (L) 3.5 - 5.0 [facility] mmol/L [facility] LABORATORY CL 103 98 - 108 mmol/L [facility] LABORATORY CO2 TOTAL 28 23 - 31 mmol/L [facility] LABOR[facility]ORY AGAP 8 2 - 16 [facility] LAB[facility] BUN 24 (H) 7 - 23 mg/dL [facility] LAB[facility] GLUCOSE 98 70 - 110 mg/dL [facility] LAB[facility]ORY CREATININE 0.97 0.50 - 1.04 [facility] mg/dL [facility] LABORATORY CALCIUM 8.3 (L) 8.6 - 10.6 [facility] mg/dL [facility] LABORATORY eGFR Calculation 57.8 mL/min/1.73m2 [facility] (Non-[facility] LABORATORY Citizen Of [place]) eGFR Calculation 70.1 mL/min/1.73m2 [facility] () [facility] LABORATORY Specimen Blood - VENOUS Narrative Performed At [facility] of Glomerular Filtration Rate (GFR) [facility] LABORATORY and Staging of Kidney Disease* + [...] tests). Performing Organization Address City/State/Zipcode Phone Number [facility] CLIA: [id number] [place] [address] Hepatic Function Panel (ALB, T.PRO, BILI T, BU/BC, ALT, AST, ALK PHOS) (01/26/2020 10:28 AM CDT) Pathologist Sig nature TOTAL BILI 0.4 0.1 - 1.1 mg/dL [facility] LABORATORY BILI UNCON 0.4 0.1 - 1.1 mg/dL [facility] LABOR[facility] BILI CONJ 0.0 0.0 - 0.3 mg/dL [facility] LABORAT[facility] T PROTEIN 6.9 6.3 - 8.2 g/dL [facility] LAB[facility] ALBUMIN 3.9 3.5 - 5.0 g/dL [facility] LABORATORY ALK PHOS 79 34 - 122 U/L [facility] LAB[facility] ALTv 31 5 - 35 U/L [facility] LABOR[facility]ORY AST(SGOT) 34 13 - 40 U/L [facility] LABORATORY Specimen Blood - VENOUS Performing Organization Address City/State/Zipcode Phone Number [facility] CLIA: [id number] [place] [address] Lipase Serum (01/26/2020 10:28 AM CDT) Pathologist Sig nature LIPASE 109 0 - 220 U/L [facility] LABORATORY Specimen Blood - VENOUS Performing Organization Address City/State/Zipcode Phone Number [facility] CLIA: [id number] [place] [address] NOTICE OF PRIVACY [...] Effective Phone Address T ype Group Dates [facility] [phone] 2019-Pre Medicar e Adv HEALTHCARE - HEALTHCARE DUAL sent H MO MANAGED COMPLETE HMO MEDICARE [facility] [id number] 2019-Pre P O BOX Beh avioral BEHAVIORAL BEHAVIORAL sent [id number] [place] [address] [facility] [id number] 2019-Pre Me dicaid HEALTHCARE COMM PLUS sent PLAN - MANAGED MEDICAID [facility] [id number] 2019-Pre B ehavioral [place] - MANAGED BEHAVIORAL sent [facility] MEDICAID HE[facility] Self 1955 [phone] [place] [address] Advance Directives Type Date Recorded Patient Program Facilitator Explanati on Advance Directives and Living 01/20/2015 9:28 AM Will Power of Supervisor [employer] 01/20/2015 9:28 AM
--- OUTSIDE RECORDS SUMMARY | 2020-02-15 11:24 | XMS REPORT | Clinical Summary ---
:1955 Author Organization [facility] - [facility] Address [address] [place] [address] Care Team Providers Name Role Phone Rahman [...] comments Father ESRD Coronary Heart Disease Father [place], late 60s? 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 Plan of Treatment Health Maintenance Due Date [...] , SERIES 10/04/2001 Implants Implanted Type Area Doll Wigs Hackler Device Shelf Model / Identifier Expiration Serial / Lot Date Central Screw SHOULDER Left: Biomet 03/23/2024 [id number] / Implanted: Qty: 1 on 02/17/2015 by Roland Dixon MD at [facility] Shoulder 3 [id number] / [id number] Mini Humeral Stem SHOULDER Left: Biomet 07/31/2024 1 [id number] / Implanted: Qty: 1 on 02/17/2015 by Roland Dixon MD at [facility] Shoulder 4 [id number] / [id number] Fixed Locking Screw SHOULDER Left: Biomet 5 [id number] / Implanted: Qty: 1 on 02/17/2015 by Roland Dixon MD at [facility] Shoulder 8 [id number] / [id number] Glenosphere SHOULDER Left: Biomet 12/05/2024 [id number] / Implanted: Qty: 1 on 02/17/2015 by Roland Dixon MD at [facility] Shoulder 7 [id number] / [id number] Fixed Locking Screw SHOULDER Left: Biomet 12/30/2024 [id number] / Implanted: Qty: 1 on 02/17/2015 by Roland Dixon MD at [facility] Shoulder 0 [id number] / [id number] Fixed Locking Screw SHOULDER Left: Biomet 12/31/2024 [id number] / Implanted: Qty: 1 on 02/17/2015 by Roland Dixon MD at [facility] Shoulder 0 [id number] / [id number] Humeral Tray With Locking Ring SHOULDER Left: Biomet 12/16/2024 [id number] / Implanted: Qty: 1 on 02/17/2015 by Roland Dixon MD at [facility] Shoulder 8 [id number] / [id number] Glensphere Mini Baseplate SHOULDER Left: Biomet 01/21 [id number] / Implanted: Qty: 1 on 02/17/2015 by Roland Dixon MD at [facility] Shoulder 1 [id number] / [id number] Humeral Bearing SHOULDER Left: Biomet 12/12/2019 XL- [id number] / Implanted: Qty: 1 on 02/17/2015 by Roland Dixon MD at [facility] Shoulder 5 [id number] / [id number] Fixed Locking Scew SHOULDER Left: Biomet 12/11/2024 [id number] / Implanted: Qty: 1 on 02/17/2015 by Roland Dixon MD at [facility] Shoulder 8 [id number] / [id number] Procedures Procedure Name Priority Date/Time Associated Comments [...] 10:28 Abdominal pain , Results for this (71172) (ALB,T.PRO,BILI AM CDT unspecified proc edure are [...] of the pelvis was excluded in the ppkvw-wz-tuca. 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 [...] of the pelvis was excluded in the orffg-xt-qedb. 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 [...] Sig nature WBC 6.30 4.30 - 11.10 [facility] 10*3/L HOSPITAL LABORATORY RBC 4.01 3.93 - 5.25 [facility] 10*6/L [facility]OSPITAL LABORATORY HGB 10.6 (L) 11.6 - 15.0 [facility] g/dL HOSPITAL LAB[facility]ORY HCT 35.3 (L) 35.7 - 45.2 % [facility] LABORATORY MCV 88.0 80.6 - 95.5 fL [facility] LABORATORY MCH 26.4 25.9 - 32.8 pg [facility] LABORATORY MCHC 30.0 (L) 31.6 - 35.1 [facility] g/dL HOSPITAL LABORATORY RDW-SD 52.6 (H) 39.0 - 49.9 fL [facility] LABORATORY RDW-CV 16.2 (H) 12.0 - 15.5 % [facility] LABORATORY PLT 192 166 - 358 [facility] 10*3/L HOSPITAL LABORATORY MPV 9.5 9.5 - 12.9 fL [facility] LABORATORY NRBC/100 WBC 0.0 0.0 - 10.0 /100 [facility] WBCs HOSPITAL LAB[facility]ATORY NRBC x10^3 <0.01 10*3/L [facility] LABORATORY GRAN MAT (NEUT) % 66.9 % [facility] LABOR[facility] IMM GRAN % 0.60 % [facility] LYMPH % 20.0 % [facility] MONO % 11.4 % [facility] EOS % 0.8 % [facility] BASO % 0.3 % [facility] LAB[facility] GRAN MAT x10^3(ANC) 4.21 1.88 - 7.09 [facility] 10*3/uL HOSPITAL LABORATORY IMM GRAN x10^3 0.04 0.00 - 0.06 [facility] 10*3/uL HOSPITAL LAB[facility]ORY LYMPH x10^3 1.26 (L) 1.32 - 3.29 [facility] 10*3/uL [facility]ITAL LAB[facility]ORY MONO x10^3 0.72 0.33 - 0.92 [facility] 10*3/uL HOSPITAL LABORATORY EOS x10^3 0.05 0.03 - 0.39 [facility] 10*3/uL [facility]OSPITAL LAB[facility]ORY BASO x10^3 <0.03 0.01 - 0.07 [facility] 10*3/uL [facility] LABORATORY Specimen Blood - VENOUS Performing Organization Address City/State/Zipcode Phone Number [facility] CLIA: [id number] [place] [address] Basic Metabolic Panel (NA, K, CL, CO2, GLUCOSE, BUN, CREATININE, CA) (01/26/2020 10:28 AM CDT) [facility] nature NA 139 135 - 145 [facility] mmol/L [facility] LABORATORY K 3.4 (L) 3.5 - 5.0 [facility] mmol/L [facility] LABORATORY CL 103 98 - 108 mmol/L [facility] LABORATORY CO2 TOTAL 28 23 - 31 mmol/L [facility] LAB[facility] AGAP 8 2 - 16 [facility] LAB[facility] BUN 24 (H) 7 - 23 mg/dL [facility] GLUCOSE 98 70 - 110 mg/dL [facility] LAB[facility] CREATININE 0.97 0.50 - 1.04 [facility] mg/dL [facility] LABORATORY CALCIUM 8.3 (L) 8.6 - 10.6 [facility] mg/dL [facility] LABORATORY eGFR Calculation 57.8 mL/min/1.73m2 [facility] (Non-[facility] LABORATORY Lao) eGFR Calculation 70.1 mL/min/1.73m2 [facility] () [facility] LABORATORY Specimen Blood - VENOUS Narrative Performed At [facility] of Glomerular Filtration Rate (GFR) [facility] LABORATORY and Staging of Kidney Disease* [...] tests). Performing Organization Address City/State/Zipcode Phone Number [facility] CLIA: [id number] [place] [address] Hepatic Function Panel (ALB, T.PRO, BILI T, BU/BC, ALT, AST, ALK PHOS) (01/26/2020 10:28 AM CDT) Pathologist Sig nature TOTAL BILI 0.4 0.1 - 1.1 mg/dL [facility] LABORATORY BILI UNCON 0.4 0.1 - 1.1 mg/dL [facility] LABOR[facility] BILI CONJ 0.0 0.0 - 0.3 mg/dL [facility] LABORATORY T PROTEIN 6.9 6.3 - 8.2 g/dL [facility] LABOR[facility]ORY ALBUMIN 3.9 3.5 - 5.0 g/dL [facility] LABORATORY ALK PHOS 79 34 - 122 U/L [facility] LABORATORY ALTv 31 5 - 35 U/L [facility] LABORATORY AST(SGOT) 34 13 - 40 U/L [facility] LABORATORY Specimen Blood - VENOUS Performing Organization Address City/State/Zipcode Phone Number [facility] CLIA: [id number] [place] [address] Lipase Serum (01/26/2020 10:28 AM CDT) Pathologist Sig nature LIPASE 109 0 - 220 U/L [facility] LABORATORY Specimen Blood - VENOUS Performing Organization Address City/State/Zipcode Phone Number [facility] CLIA: [id number] [place] [address] NOTICE OF PRIVACY [...] Effective Phone Address T ype Group Dates [facility] [phone] 2019-Pre Medicar e Adv HEALTHCARE - HEALTHCARE DUAL sent H MO MANAGED COMPLETE HMO MEDICARE [facility] [id number] 2019-Pre P O BOX Beh avioral BEHAVIORAL BEHAVIORAL sent [phone] [place] [address] [facility] [id number] 2019-Pre Me dicaid HEALTHCARE COMM PLUS sent PLAN - MANAGED MEDICAID [facility] [id number] 2019-Pre B ehavioral [place] - MANAGED BEHAVIORAL sent [facility] MEDICAID [facility] Self 1955 [phone] [place] [address] Advance Directives Type Date Recorded Patient Special Projects Manager Explanati on Advance Directives and Living 01/20/2015 9:28 AM Will Power of Financial Aid Administrator 01/20/2015 9:28 AM
--- OUTSIDE RECORDS SUMMARY | 2020-02-15 11:24 | XMS REPORT | Clinical Summary ---
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 Plan of Treatment Health Maintenance Due Date [...] , SERIES 10/04/2001 Implants Implanted Type Area Identification Technician Device Shelf Model / Identifier Expiration Serial / Lot Date Central Screw SHOULDER Left: Biomet 03/23/2024 [id number] / Implanted: Qty: 1 on 02/17/2015 by Roland Dixon MD at [facility] Shoulder 3 [id number] / [id number] Mini Humeral Stem SHOULDER Left: Biomet 07/31/2024 1 [id number] / Implanted: Qty: 1 on 02/17/2015 by Roland Dixon MD at [facility] Shoulder 4 [id number] / [id number] Fixed Locking Screw SHOULDER Left: Biomet 5 [id number] / Implanted: Qty: 1 on 02/17/2015 by Roland Dixon MD at [facility] Shoulder 8 [id number] / [id number] Glenosphere SHOULDER Left: Biomet 12/05/2024 [id number] / Implanted: Qty: 1 on 02/17/2015 by Roland Dixon MD at [facility] Shoulder 7 [id number] / [id number] Fixed Locking Screw SHOULDER Left: Biomet 12/30/2024 [id number] / Implanted: Qty: 1 on 02/17/2015 by Roland Dixon MD at [facility] Shoulder 0 [id number] / [id number] Fixed Locking Screw SHOULDER Left: Biomet 12/31/2024 [id number] / Implanted: Qty: 1 on 02/17/2015 by Roland Dixon MD at [facility] Shoulder 0 [id number] / [id number] Humeral Tray With Locking Ring SHOULDER Left: Biomet 12/16/2024 [id number] / Implanted: Qty: 1 on 02/17/2015 by Roland Dixon MD at [facility] Shoulder 8 [id number] / [id number] Glensphere Mini Baseplate SHOULDER Left: Biomet 01/21 [id number] / Implanted: Qty: 1 on 02/17/2015 by Roland Dixon MD at [facility] Shoulder 1 [id number] / [id number] Humeral Bearing SHOULDER Left: Biomet 12/12/2019 XL- [id number] / Implanted: Qty: 1 on 02/17/2015 by Roland Dixon MD at [facility] Shoulder 5 [id number] / [id number] Fixed Locking Scew SHOULDER Left: Biomet 12/11/2024 [id number] / Implanted: Qty: 1 on 02/17/2015 by Roland Dixon MD at [facility] Shoulder 8 [id number] / [id number] Procedures Procedure Name Priority Date/Time Associated Comments [...] 10:28 Abdominal pain , Results for this (75737) (ALB,T.PRO,BILI AM CDT unspecified proc edure are [...] of the pelvis was excluded in the kmwap-lg-sldb. 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 [...] of the pelvis was excluded in the eivif-pw-khkg. 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 [...] Sig nature WBC 6.30 4.30 - 11.10 [facility] 10*3/L HOSPITAL LABORATORY RBC 4.01 3.93 - 5.25 [facility] 10*6/L HOSPITAL LABORATORY HGB 10.6 (L) 11.6 - 15.0 [facility] g/dL HOSPITAL LABORATORY HCT 35.3 (L) 35.7 - 45.2 % [facility] LABORATORY MCV 88.0 80.6 - 95.5 fL [facility] MCH 26.4 25.9 - 32.8 pg [facility] MCHC 30.0 (L) 31.6 - 35.1 [facility] g/dL HOSPITAL LABORATORY RDW-SD 52.6 (H) 39.0 - 49.9 fL [facility] LABORATORY RDW-CV 16.2 (H) 12.0 - 15.5 % [facility] LABORATORY PLT 192 166 - 358 [facility] 10*3/L HOSPITAL LABORATORY MPV 9.5 9.5 - 12.9 fL [facility] LABORATORY NRBC/100 WBC 0.0 0.0 - 10.0 /100 [facility] WBCs HOSPITAL LABORATORY NRBC x10^3 <0.01 10*3/L [facility] LABORATORY GRAN MAT (NEUT) % 66.9 % [facility] LAB[facility] IMM GRAN % 0.60 % [facility] LYMPH % 20.0 % [facility] MONO % 11.4 % [facility] EOS % 0.8 % [facility] BASO % 0.3 % [facility] LABORATORY GRAN MAT x10^3(ANC) 4.21 1.88 - 7.09 [facility] 10*3/uL HOSPITAL LABORATORY IMM GRAN x10^3 0.04 0.00 - 0.06 [facility] 10*3/uL HOSPITAL LAB[facility]ATORY LYMPH x10^3 1.26 (L) 1.32 - 3.29 [facility] 10*3/uL [facility]OSPITAL LABORATORY MONO x10^3 0.72 0.33 - 0.92 [facility] 10*3/uL HOSPITAL LABORATORY EOS x10^3 0.05 0.03 - 0.39 [facility] 10*3/uL [facility]OSPITAL LABORATORY BASO x10^3 <0.03 0.01 - 0.07 [facility] 10*3/uL [facility] LABORATORY Specimen Blood - VENOUS Performing Organization Address City/State/Zipcode Phone Number [facility] CLIA: [id number] [place] [address] Basic Metabolic Panel (NA, K, CL, CO2, GLUCOSE, BUN, CREATININE, CA) (01/26/2020 10:28 AM CDT) [facility] nature NA 139 135 - 145 [facility] mmol/L [facility] LABORATORY K 3.4 (L) 3.5 - 5.0 [facility] mmol/L [facility] LABORATORY CL 103 98 - 108 mmol/L [facility] LABORATORY CO2 TOTAL 28 23 - 31 mmol/L [facility] LAB[facility] AGAP 8 2 - 16 [facility] LABOR[facility]ORY BUN 24 (H) 7 - 23 mg/dL [facility] LABOR[facility]ORY GLUCOSE 98 70 - 110 mg/dL [facility] LAB[facility] CREATININE 0.97 0.50 - 1.04 [facility] mg/dL [facility] LABORATORY CALCIUM 8.3 (L) 8.6 - 10.6 [facility] mg/dL [facility] LABORATORY eGFR Calculation 57.8 mL/min/1.73m2 [facility] (Non-[facility] LABORATORY Colombian) eGFR Calculation 70.1 mL/min/1.73m2 [facility] () [facility] LABORATORY Specimen Blood - VENOUS Narrative Performed [place] [facility] of Glomerular Filtration Rate (GFR) [facility] LABORATORY and Staging of Kidney Disease* + [...] tests). Performing Organization Address City/State/Zipcode Phone Number [facility] CLIA: [id number] [place] [address] Hepatic Function Panel (ALB, T.PRO, BILI T, BU/BC, ALT, AST, ALK PHOS) (01/26/2020 10:28 AM CDT) Pathologist Sig nature TOTAL BILI 0.4 0.1 - 1.1 mg/dL [facility] LABORATORY BILI UNCON 0.4 0.1 - 1.1 mg/dL [facility] LAB[facility] BILI CONJ 0.0 0.0 - 0.3 mg/dL [facility] LAB[facility] T PROTEIN 6.9 6.3 - 8.2 g/dL [facility] ALBUMIN 3.9 3.5 - 5.0 g/dL [facility] ALK PHOS 79 34 - 122 U/L [facility] ALTv 31 5 - 35 U/L [facility] AST(SGOT) 34 13 - 40 U/L [facility] Specimen Blood - VENOUS Performing Organization Address City/State/Zipcode Phone Number [facility] CLIA: [id number] [place] [address] Lipase Serum (01/26/2020 10:28 AM CDT) Pathologist Sig nature LIPASE 109 0 - 220 U/L [facility] Specimen Blood - VENOUS Performing Organization Address City/State/Zipcode Phone Number [facility] CLIA: [id number] [place] [address] NOTICE OF PRIVACY [...] Effective Phone Address T ype Group Dates [facility] [phone] 2019-Pre Medicar e Adv HEALTHCARE - HEALTHCARE DUAL sent H [place] MANAGED COMPLETE HMO MEDICARE [facility] [id number] 2019-Pre [address] Beh avioral [facility]AL BEHAVIORAL sent [id number] [place] [address] [facility] [id number] 2019-Pre Me dicaid HEALTHCARE COMM PLUS sent PLAN - MANAGED MEDICAID [facility] [id number] 2019-Pre B ehavioral [place] - MANAGED BEHAVIORAL sent [facility] MEDICAID [facility]ALTH [facility] Self 1955 [phone] [place] [address] Advance Directives Type Date Recorded Patient Director Cloud Transformation Explanati on Advance Directives and Living 01/20/2015 9:28 AM Will Power of Produce Wrapper 01/20/2015 9:28 AM
--- OUTSIDE RECORDS SUMMARY | 2020-02-15 11:25 | XMS REPORT | Clinical Summary ---
:1955 Author Organization [facility] - [facility] Address [address] [place] [address] Care Team Providers Name Role Phone Rahman [...] comments Father ESRD Coronary Heart Disease Father [place], late 60s? 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 Body Mass Index 37.76 07/09/2019 9:33 AM MANAGER FRONT OFFICE Plan of Treatment Health Maintenance Due Date [...] , SERIES 10/04/2001 Implants Implanted Type Area Tire Service Supervisor Device Shelf Model / Identifier Expiration Serial / Lot Date Central Screw SHOULDER Left: Biomet 03/23/2024 [id number] / Implanted: Qty: 1 on 02/17/2015 by Roland Dixon MD at [facility] Shoulder 3 [id number] / [id number] Mini Humeral Stem SHOULDER Left: Biomet 07/31/2024 1 [id number] / Implanted: Qty: 1 on 02/17/2015 by Roland Dixon MD at [facility] Shoulder 4 [id number] / [id number] Fixed Locking Screw SHOULDER Left: Biomet [id number] / Implanted: Qty: 1 on 02/17/2015 by Roland Dixon MD at [facility] Shoulder 8 [id number] / [id number] Glenosphere SHOULDER Left: Biomet 12/05/2024 [id number] / Implanted: Qty: 1 on 02/17/2015 by Roland Dixon MD at [facility] Shoulder 7 [id number] / [id number] Fixed Locking Screw SHOULDER Left: Biomet 12/30/2024 [id number] / Implanted: Qty: 1 on 02/17/2015 by Roland Dixon MD at [facility] Shoulder 0 [id number] / [id number] Fixed Locking Screw SHOULDER Left: Biomet 12/31/2024 [id number] / Implanted: Qty: 1 on 02/17/2015 by Roland Dixon MD at [facility] Shoulder 0 [id number] / [id number] Humeral Tray With Locking Ring SHOULDER Left: Biomet 12/16/2024 [id number] / Implanted: Qty: 1 on 02/17/2015 by Roland Dixon MD at [facility] Shoulder 8 [id number] / [id number] Glensphere Mini Baseplate SHOULDER Left: Biomet 01/21 [id number] / Implanted: Qty: 1 on 02/17/2015 by Roland Dixon MD at [facility] Shoulder 1 [id number] / [id number] Humeral Bearing SHOULDER Left: Biomet 12/12/2019 XL- [id number] / Implanted: Qty: 1 on 02/17/2015 by Roland Dixon MD at [facility] Shoulder 5 [id number] / [id number] Fixed Locking Scew SHOULDER Left: Biomet 12/11/2024 [id number] / Implanted: Qty: 1 on 02/17/2015 by Roland Dixon MD at [facility] Shoulder 8 [id number] / [id number] Procedures Procedure Name Priority Date/Time Associated Comments [...] 10:28 Abdominal pain , Results for this (73917) (ALB,T.PRO,BILI AM CDT unspecified proc edure are [...] of the pelvis was excluded in the [id number]. 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 [...] of the pelvis was excluded in the vjmdi-tf-[id number]. 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 [...] nature WBC 6.30 4.30 - 11.10 [facility] 10*3/L HOSPITAL LAB[facility]ATORY RBC 4.01 3.93 - 5.25 [facility] 10*6/L [facility]ITAL [facility] HGB 10.6 (L) 11.6 - 15.0 [facility] g/dL HOSPITAL [facility] HCT 35.3 (L) 35.7 - 45.2 % [facility] MCV 88.0 80.6 - 95.5 fL [facility] MCH 26.4 25.9 - 32.8 pg [facility] MCHC 30.0 (L) 31.6 - 35.1 [facility] g/dL HOSPITAL LAB[facility] RDW-SD 52.6 (H) 39.0 - 49.9 fL [facility] RDW-CV 16.2 (H) 12.0 - 15.5 % [facility] PLT 192 166 - 358 [facility] 10*3/L [facility]ITAL LAB[facility] MPV 9.5 9.5 - 12.9 fL [facility] NRBC/100 WBC 0.0 0.0 - 10.0 /100 [facility] WBCs HOSPITAL LAB[facility]ATORY NRBC x10^3 <0.01 10*3/L [facility] GRAN MAT (NEUT) % 66.9 % [facility] IMM GRAN % 0.60 % [facility] LYMPH % 20.0 % [facility] MONO % 11.4 % [facility] EOS % 0.8 % [facility] BASO % 0.3 % [facility] GRAN MAT x10^3(ANC) 4.21 1.88 - 7.09 [facility] 10*3/uL HOSPITAL LAB[facility]ORY IMM GRAN x10^3 0.04 0.00 - 0.06 [facility] 10*3/uL [facility]ITAL [facility] LYMPH x10^3 1.26 (L) 1.32 - 3.29 [facility] 10*3/uL [facility]ITAL [facility] MONO x10^3 0.72 0.33 - 0.92 [facility] 10*3/uL [facility]ITAL [facility] EOS x10^3 0.05 0.03 - 0.39 [facility] 10*3/uL [facility]ITAL [facility] BASO x10^3 <0.03 0.01 - 0.07 [facility] 10*3/uL [facility] Specimen Blood - VENOUS Performing Organization Address City/State/Zipcode Phone Number [facility] CLIA: [id number] [place] [address] Basic Metabolic Panel (NA, K, CL, CO2, GLUCOSE, BUN, CREATININE, CA) (01/26/2020 10:28 AM CDT) [facility] nature NA 139 135 - 145 [facility] mmol/L [facility] K 3.4 (L) 3.5 - 5.0 [facility] mmol/L [facility] CL 103 98 - 108 mmol/L [facility] CO2 TOTAL 28 23 - 31 mmol/L [facility] LAB[facility]ORY AGAP 8 2 - 16 [facility] LAB[facility] BUN 24 (H) 7 - 23 mg/dL [facility] LAB[facility] GLUCOSE 98 70 - 110 mg/dL [facility]ORY CREATININE 0.97 0.50 - 1.04 [facility] mg/dL [facility] CALCIUM 8.3 (L) 8.6 - 10.6 [facility] mg/dL [facility] eGFR Calculation 57.8 mL/min/1.73m2 [facility] (Non-[facility] LABORATORY [place]) eGFR Calculation 70.1 mL/min/1.73m2 [facility] () [facility] Specimen Blood - VENOUS Narrative Performed At [facility] Glomerular Filtration Rate (GFR) [facility] LAB[facility] and Staging of Kidney Disease* [...] tests). Performing Organization Address City/State/Zipcode Phone Number [facility] CLIA: [id number] [place] [address] Hepatic Function Panel (ALB, T.PRO, BILI T, BU/BC, ALT, AST, ALK PHOS) (01/26/2020 10:28 AM CDT) Pathologist Sig nature TOTAL BILI 0.4 0.1 - 1.1 mg/dL [facility] LABORATORY BILI UNCON 0.4 0.1 - 1.1 mg/dL [facility] LAB[facility] BILI CONJ 0.0 0.0 - 0.3 mg/dL [facility] LAB[facility] T PROTEIN 6.9 6.3 - 8.2 g/dL [facility] LAB[facility] ALBUMIN 3.9 3.5 - 5.0 g/dL [facility] LABOR[facility]ORY ALK PHOS 79 34 - 122 U/L [facility] ALTv 31 5 - 35 U/L [facility] LAB[facility]ORY AST(SGOT) 34 13 - 40 U/L [facility] LABOR[facility]ORY Specimen Blood - VENOUS Performing Organization Address City/State/Zipcode Phone Number [facility] CLIA: [id number] [place] [address] Lipase Serum (01/26/2020 10:28 AM CDT) Pathologist Sig nature LIPASE 109 0 - 220 U/L [facility] LABORATORY Specimen Blood - VENOUS Performing Organization Address City/State/Zipcode Phone Number [facility] CLIA: [id number] [place] [address] NOTICE OF PRIVACY [...] Effective Phone Address T ype Group Dates [facility] [id number] 2019-Pre Medicar e Adv HEALTHCARE - HEALTHCARE DUAL sent H MO MANAGED COMPLETE HMO MEDICARE [facility] [id number] 2019-Pre P O BOX Beh avioral BEHAVIORAL BEHAVIORAL sent [id number] [place] [address] [facility] [id number] 2019-Pre Me dicaid HEALTHCARE COMM PLUS sent PLAN - MANAGED MEDICAID [facility] [id number] 2019-Pre B ehavioral [place] - MANAGED BEHAVIORAL sent [facility] MEDICAID HEALTH [facility] Self 1955 [phone] [place] [address] Advance Directives Type Date 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
--- OUTSIDE RECORDS SUMMARY | 2020-02-15 11:25 | XMS REPORT | Clinical Summary ---
:1955 Author Organization [facility] - [facility] Address [address] [place] [address] Care Team Providers Name Role Phone Rahman [...] for Insomnia for up to 30 days. mirtazapine (REMERON) Take half a tab 30 tablet 0 02/13/2020 Active 15 mg for the first tabletIndications: two nights and Insomnia, unspecified can increase to type 1 tab once a night if tolerated. 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 Plan of Treatment Health Maintenance Due Date [...] , SERIES 10/04/2001 Implants Implanted Type Area Junior Sales Assistant Device Shelf Model / Identifier Expiration Serial / Lot Date Central Screw SHOULDER Left: Biomet 03/23/2024 [id number] / Implanted: Qty: 1 on 02/17/2015 by Roland Dixon MD at [facility] Shoulder 3 [id number] / [id number] Mini Humeral Stem SHOULDER Left: Biomet 07/31/2024 1 [id number] / Implanted: Qty: 1 on 02/17/2015 by Roland Dixon MD at [facility] Shoulder 4 [id number] / [id number] Fixed Locking Screw SHOULDER Left: Biomet [id number] / Implanted: Qty: 1 on 02/17/2015 by Roland Dixon MD at [facility] Shoulder 8 [id number] / [id number] Glenosphere SHOULDER Left: Biomet 12/05/2024 [id number] / Implanted: Qty: 1 on 02/17/2015 by Roladn Dixon MD at [facility] Shoulder 7 [id number] / [id number] Fixed Locking Screw SHOULDER Left: Biomet 12/30/2024 [id number] / Implanted: Qty: 1 on 02/17/2015 by Roland Dixon MD at [facility] Shoulder 0 [id number] / [id number] Fixed Locking Screw SHOULDER Left: Biomet 12/31/2024 [id number] / Implanted: Qty: 1 on 02/17/2015 by Roland Dixon MD at [facility] Shoulder 0 [id number] / [id number] Humeral Tray With Locking Ring SHOULDER Left: Biomet 12/16/2024 [id number] / Implanted: Qty: 1 on 02/17/2015 by Roland Dixon MD at [facility] Shoulder 8 [id number] / [id number] Glensphere Mini Baseplate SHOULDER Left: Biomet 01/21 [id number] / Implanted: Qty: 1 on 02/17/2015 by Roland Dixon MD at [facility] Shoulder 1 [id number] / [id number] Humeral Bearing SHOULDER Left: Biomet 12/12/2019 XL- [id number] / Implanted: Qty: 1 on 02/17/2015 by Roland Dixon MD at [facility] Shoulder 5 [id number] / [id number] Fixed Locking Scew SHOULDER Left: Biomet 12/11/2024 [id number] / Implanted: Qty: 1 on 02/17/2015 by Roland Dixon MD at [facility] Shoulder 8 [id number] / [id number] Procedures Procedure Name Priority Date/Time Associated Comments [...] 10:28 Abdominal pain , Results for this (26983) (ALB,T.PRO,BILI AM CDT unspecified proc edure are [...] of the pelvis was excluded in the [id number]. 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 [...] of the pelvis was excluded in the vpbog-[id number]. 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 IMPRESSION Nonobstructive bowel gas pattern. Obscuration of the left costophrenic ang le may be due to overlying structures versus a small pleural effusi on with adjacent consolidation. Preliminary Report Dictated by Resident: Momo Watkins I, Zen Hamilton MD., have reviewed is study and agree with the above report. Performing Organization Address City/State/Zipcode Phone Number PACS/VR/DOSE CBC with Differential (01/26/2020 10:28 AM CDT) Pathologist Sig nature WBC 6.30 4.30 - 11.10 [facility] 10*3/L HOSPITAL LABORATORY RBC 4.01 3.93 - 5.25 [facility] 10*6/L HOSPITAL LABORATORY HGB 10.6 (L) 11.6 - 15.0 [facility] g/dL HOSPITAL LABOR[facility]ORY HCT 35.3 (L) 35.7 - 45.2 % [facility] MCV 88.0 80.6 - 95.5 fL [facility] MCH 26.4 25.9 - 32.8 pg [facility] MCHC 30.0 (L) 31.6 - 35.1 [facility] g/dL HOSPITAL LABORATORY RDW-SD 52.6 (H) 39.0 - 49.9 fL [facility] RDW-CV 16.2 (H) 12.0 - 15.5 % [facility] PLT 192 166 - 358 [facility] 10*3/L HOSPITAL LABORATORY MPV 9.5 9.5 - 12.9 fL [facility] NRBC/100 WBC 0.0 0.0 - 10.0 /100 [facility] WBCs [facility] LABORATORY NRBC x10^3 <0.01 10*3/L [facility] GRAN MAT (NEUT) % 66.9 % [facility] IMM GRAN % 0.60 % [facility] LYMPH % 20.0 % [facility] MONO % 11.4 % [facility] EOS % 0.8 % [facility] BASO % 0.3 % [facility] GRAN MAT x10^3(ANC) 4.21 1.88 - 7.09 [facility] 10*3/uL [facility] LABORATORY IMM GRAN x10^3 0.04 0.00 - 0.06 [facility] 10*3/uL [facility] LABORATORY LYMPH x10^3 1.26 (L) 1.32 - 3.29 [facility] 10*3/uL [facility] LABORATORY MONO x10^3 0.72 0.33 - 0.92 [facility] 10*3/uL [facility] LABORATORY EOS x10^3 0.05 0.03 - 0.39 [facility] 10*3/uL [facility] LABORATORY BASO x10^3 <0.03 0.01 - 0.07 [facility] 10*3/uL [facility] LABORATORY Specimen Blood - VENOUS Performing Organization Address City/State/Zipcode Phone Number [facility] CLIA: [id number] [place] [address] Basic Metabolic Panel (NA, K, CL, CO2, GLUCOSE, BUN, CREATININE, CA) (01/26/2020 10:28 AM CDT) Pathologist Sig nature NA 139 135 - 145 [facility] mmol/L [facility] LABORATORY K 3.4 (L) 3.5 - 5.0 [facility] mmol/L [facility] LABORATORY CL 103 98 - 108 mmol/L [facility] CO2 TOTAL 28 23 - 31 mmol/L [facility] AGAP 8 2 - 16 [facility] BUN 24 (H) 7 - 23 mg/dL [facility] GLUCOSE 98 70 - 110 mg/dL [facility] CREATININE 0.97 0.50 - 1.04 [facility] mg/dL [facility] LABORATORY CALCIUM 8.3 (L) 8.6 - 10.6 [facility] mg/dL [facility] LABORATORY eGFR Calculation 57.8 mL/min/1.73m2 [facility] (Non-[facility] LABORATORY Irish) eGFR Calculation 70.1 mL/min/1.73m2 [facility] () [facility] LABORATORY Specimen Blood - VENOUS Narrative Performed At [facility] Glomerular Filtration Rate (GFR) [facility] LABORATORY and Staging of Kidney [...] tests). Performing Organization Address City/State/Zipcode Phone Number [facility] CLIA: [id number] [place] [address] Hepatic Function Panel (ALB, T.PRO, BILI T, BU/BC, ALT, AST, ALK PHOS) (01/26/2020 10:28 AM CDT) [facility] TOTAL BILI 0.4 0.1 - 1.1 mg/dL [facility] BILI UNCON 0.4 0.1 - 1.1 mg/dL [facility] BILI CONJ 0.0 0.0 - 0.3 mg/dL [facility] T PROTEIN 6.9 6.3 - 8.2 g/dL [facility] ALBUMIN 3.9 3.5 - 5.0 g/dL [facility] ALK PHOS 79 34 - 122 U/L [facility] ALTv 31 5 - 35 U/L [facility] AST(SGOT) 34 13 - 40 U/L [facility] Specimen Blood - VENOUS Performing Organization Address City/State/Zipcode Phone Number [facility] CLIA: [id number] [place] [address] Lipase Serum (01/26/2020 10:28 AM CDT) Pathologist Sig nature LIPASE 109 0 - 220 U/L [facility] LABOR[facility]ORY Specimen Blood - VENOUS Performing Organization Address City/State/Zipcode Phone Number [facility] CLIA: [id number] [place] [address] NOTICE OF PRIVACY [...] Effective Phone Address T ype Group Dates [facility] [id number] 2019-Pre Medicar e Adv HEALTHCARE - HEALTHCARE DUAL sent H MO MANAGED COMPLETE HMO [facility]ICARE [facility] [id number] 2019-Pre P O BOX Beh avioral BEHAVIORAL BEHAVIORAL sent [phone] [place] [address] 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
--- OUTSIDE RECORDS SUMMARY | 2020-02-15 11:25 | XMS REPORT | Clinical Summary ---
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 Plan of Treatment Health Maintenance Due Date [...] , SERIES 10/04/2001 Implants Implanted Type Area Tax Services Intern Device Shelf Model / Identifier Expiration Serial / Lot Date Central Screw SHOULDER Left: Biomet 03/23/2024 [id number] / Implanted: Qty: 1 on 02/17/2015 by Roland Dixon MD at [facility] Shoulder [id number] / [id number] Mini Humeral Stem SHOULDER Left: Biomet 07/31/2024 1 [id number] / Implanted: Qty: 1 on 02/17/2015 by Roland Dixon MD at [facility] Shoulder [id number] / [id number] Fixed Locking Screw SHOULDER Left: Biomet [id number] / Implanted: Qty: 1 on 02/17/2015 by Roland Dixon MD at [facility] Shoulder 8 [id number] / [id number] Glenosphere SHOULDER Left: Biomet 12/05/2024 [id number] / Implanted: Qty: 1 on 02/17/2015 by Roland Dixon MD at [facility] Shoulder 7 [id number] / [id number] Fixed Locking Screw SHOULDER Left: Biomet 12/30/2024 [id number] / Implanted: Qty: 1 on 02/17/2015 by Roland Dixon MD at [facility] Shoulder 0 [id number] / [id number] Fixed Locking Screw SHOULDER Left: Biomet 12/31/2024 [id number] / Implanted: Qty: 1 on 02/17/2015 by Roland Dixon MD at [facility] Shoulder 0 [id number] / [id number] Humeral Tray With Locking Ring SHOULDER Left: Biomet 12/16/2024 [id number] / Implanted: Qty: 1 on 02/17/2015 by Roland Dixon MD at [facility] Shoulder 8 [id number] / [id number] Glensphere Mini Baseplate SHOULDER Left: Biomet 01/21 [id number] / Implanted: Qty: 1 on 02/17/2015 by Roland Dixon MD at [facility] Shoulder 1 [id number] / [id number] Humeral Bearing SHOULDER Left: Biomet 12/12/2019 XL- [id number] / Implanted: Qty: 1 on 02/17/2015 by Roland Dixon MD at [facility] Shoulder 5 [id number] / [id number] Fixed Locking Scew SHOULDER Left: Biomet 12/11/2024 [id number] / Implanted: Qty: 1 on 02/17/2015 by Roland Dixon MD at [facility] Shoulder 8 [id number] / [id number] Procedures Procedure Name Priority Date/Time Associated Comments [...] 10:28 Abdominal pain , Results for this (05839) (ALB,T.PRO,BILI AM CDT unspecified proc edure are [...] of the pelvis was excluded in the [id number]. 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 [...] of the pelvis was excluded in the [id number]. 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 [...] Sig nature WBC 6.30 4.30 - 11.10 [facility] 10*3/L [facility] RBC 4.01 3.93 - 5.25 [facility] 10*6/L [facility] HGB 10.6 (L) 11.6 - 15.0 [facility] g/dL [facility] HCT 35.3 (L) 35.7 - 45.2 % [facility] MCV 88.0 80.6 - 95.5 fL [facility] MCH 26.4 25.9 - 32.8 pg [facility] MCHC 30.0 (L) 31.6 - 35.1 [facility] g/dL [facility] RDW-SD 52.6 (H) 39.0 - 49.9 fL [facility] RDW-CV 16.2 (H) 12.0 - 15.5 % [facility] PLT 192 166 - 358 [facility] 10*3/L [facility] MPV 9.5 9.5 - 12.9 fL [facility] NRBC/100 WBC 0.0 0.0 - 10.0 /100 [facility] WBCs [facility] NRBC x10^3 <0.01 10*3/L [facility] GRAN MAT (NEUT) % 66.9 % [facility] IMM GRAN % 0.60 % [facility] LYMPH % 20.0 % [facility] MONO % 11.4 % [facility] EOS % 0.8 % [facility] BASO % 0.3 % [facility] GRAN MAT x10^3(ANC) 4.21 1.88 - 7.09 [facility] 10*3/uL [facility] IMM GRAN x10^3 0.04 0.00 - 0.06 [facility] 10*3/uL [facility] LYMPH x10^3 1.26 (L) 1.32 - 3.29 [facility] 10*3/uL [facility] MONO x10^3 0.72 0.33 - 0.92 [facility] 10*3/uL [facility] EOS x10^3 0.05 0.03 - 0.39 [facility] 10*3/uL [facility] BASO x10^3 <0.03 0.01 - 0.07 [facility] 10*3/uL [facility] Specimen Blood - VENOUS Performing Organization Address City/State/Zipcode Phone Number [facility] CLIA: [id number] [place] [address] Basic Metabolic Panel (NA, K, CL, CO2, GLUCOSE, BUN, CREATININE, CA) (01/26/2020 10:28 AM CDT) Pathologist Sig nature NA 139 135 - 145 [facility] mmol/L [facility] K 3.4 (L) 3.5 - 5.0 [facility] mmol/L [facility] CL 103 98 - 108 mmol/L [facility] CO2 TOTAL 28 23 - 31 mmol/L [facility] AGAP 8 2 - 16 [facility] BUN 24 (H) 7 - 23 mg/dL [facility] GLUCOSE 98 70 - 110 mg/dL [facility] CREATININE 0.97 0.50 - 1.04 [facility] mg/dL [facility] CALCIUM 8.3 (L) 8.6 - 10.6 [facility] mg/dL [facility] eGFR Calculation 57.8 mL/min/1.73m2 [facility] ([facility] LAB[facility]ATORY Slovak) eGFR Calculation 70.1 mL/min/1.73m2 [facility] () [facility] Specimen Blood - VENOUS Narrative Performed At Association of Glomerular Filtration Rate (GFR) [facility] LAB[facility] and Staging of Kidney Disease* [...] Address City/State/Zipcode Phone Number [facility] CLIA: [id number] [place] [address] Hepatic Function Panel (ALB, T.PRO, BILI T, BU/BC, ALT, AST, ALK PHOS) (01/26/2020 10:28 AM CDT) [facility] TOTAL BILI 0.4 0.1 - 1.1 mg/dL [...] Address City/State/Zipcode Phone Number [facility] CLIA: [id number] [place] [address] Lipase Serum (01/26/2020 10:28 AM CDT) Pathologist Sig nature LIPASE 109 0 - 220 U/L [facility] Specimen Blood - VENOUS Performing Organization Address City/State/Zipcode Phone Number [facility] CLIA: [id number] [place] [address] NOTICE OF PRIVACY [...] Effective Phone Address T ype Group Dates [facility] [phone] 2019-Pre Medicar e Adv HEALTHCARE - HEALTHCARE DUAL sent H [place] MANAGED COMPLETE HMO MEDICARE [facility] [id number] 2019-Pre P O BOX Beh avioral [facility]AL BEH[facility]IORAL sent [id number] [place] [address] [facility] [id number] 2019-Pre Me dicaid HEALTHCARE COMM PLUS sent PLAN - MANAGED MEDICAID [facility] [id number] 2019-Pre B ehavioral [place] - MANAGED BEHAVIORAL sent [facility] MEDICAID [facility] Self 1955 [phone] [place] [address] Advance Directives Type Date Recorded 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
[2020-02-15 12:48] LABS: Basophils % 0.8 % (0-1.3); Hematocrit 37.5 % (36.0-45.0); Lymphocytes % 10.9 % (15.3-44.8); MPV 7.5 fL (7.6-11.3); RBC Red Blood Cell Count 4.65 M/uL (3.86-4.86)
[2020-02-15] MEDS ORDERED: KETOROLAC 30 MG/ML INJ ONE (12:50)
[2020-02-15] MEDS ORDERED: ONDANSETRON 4 MG/2 ML VIAL ONE (12:50)
[2020-02-15 13:00] LABS: Albumin 3.4 g/dL (3.4-5.0); Bilirubin Direct 0.1 mg/dL (0-0.2); Bilirubin Total 0.5 mg/dL (0.2-1.0); Potassium 3.9 mmol/L (3.5-5.1); Protein, Total 7.5 g/dL (6.4-8.2)
[2020-02-15] MEDS ORDERED: MORPHINE 2 MG/ML SYR ONE (13:22)
--- NOTE | 2020-02-15 13:46 | RAD REPORT ---
EXAM DESCRIPTION: CT - Abdomen Pelvis Wo Contrast - 02/15/2020 1:24 pm CLINICAL HISTORY: left lateral;Abd pain COMPARISON: Abdomen Pelvis W Contrast dated 01/28/2020 TECHNIQUE: Axial [address] imaging of the abdomen and pelvis was performed without IV contrast. No IV contrast was given because of allergy, abnormal renal function, patient refusal or physician re quest. No oral contrast administered. All CT scans are performed using dose optimization technique as appropriate and may include automated exposure control or mA/KV adjustment according to patient size. FINDINGS: No suspicious findings in the lung bases. The liver, spleen and pancreas show no suspicious findings on non-contrast imaging. Cholecystectomy c lips are present. No biliary tree dilatation. No hydronephrosis or suspicious renal mass. Multiple bilateral renal cysts are present similar to com parison. No significant adrenal finding. Isodense renal masses and pyelonephritis cannot be excluded in the absence of IV contrast. The urinary bladder is without significant finding. Uterus and ovaries show no suspicious findings. Large hiatal hernia is again noted with approximately 30% of the stomach intrathoracic. This distorts the gastric wall fold pattern. No gross abnormality or change to the stomach since the January 27 s tudy. No dilated small bowel loops. A few minimally prominent small bowel loops are present. This is a minimal finding but could reflect a mild enteritis. No acute colon process seen. No free air, free fluid or inflammatory stranding. No hernia, mass or bulky lymphadenopathy. No suspicious bony findings. IMPRESSION: Patient has a few small bowel loops that are minimally prominent. Small bowel enteritis would be possible. No acute stomach or colon process. No other significant finding or significant change from January 27. Full assessment is limited is the absence of IV contrast.
[2020-02-15] MEDS ORDERED: HYDROCODONE/APAP 10/325 TAB ONE (14:17)
[2020-02-15] MEDS ORDERED: PROMETHAZINE 25 MG TABLET ONE (14:18)
--- NOTE | 2020-02-15 14:44 | ER ---
Nurse's Notes [facility] Name: Marjan Fleming Age: 65 yrs Sex: Female : 1955 Arrival Date: 02/15/2020 Time: 11:23 Bed 8 Private MD: Lele Rahman H Diagnosis: Abdominal and pelvic pain Presentation: 02/14 11:27 Chief complaint: Patient states: Left sided lower CP/LUQ abd pain since yesterday. + ll1 nausea and diarrhea. No known fever. Coronavirus screen: Client denies travel out of the [place] in the last 14 days. At this time, the client does not indicate any symptoms associated with coronavirus-19. Ebola Screen: Patient denies travel to an Ebola-affected area in the 21 days before illness onset. Initial Sepsis Screen: Does the patient meet any 2 criteria? No. Patient's initial sepsis screen is negative. Risk Assessment: Do you want to hurt yourself or someone else? Patient reports no desire to harm self or others. Onset of symptoms was February 14, 2020. 11:27 Method Of Arrival: Ambulatory ll1 11:27 Acuity: BLAYNE 3 ll1 12:46 Initial Sepsis Screen: Does the patient have a suspected source of infection? No. ph Patient's initial sepsis screen is negative. Historical: - Allergies: 11:29 Bactrim DS; ll1 11:29 Codeine; ll1 11:29 Demerol; ll1 11:29 metoclopramide HCl; ll1 11:29 Stadol; ll1 - PMHx: 11:29 Anxiety; Hepatitis; Hypertension; HIV; esophageal varices; COPD; Chronic pain; Bipolar ll1 disorder; Migraines; Atrial Fib; Panic Attacks; - PSHx: 11:29 Appendectomy; Cholecystectomy; ll1 - Immunization history:: Flu vaccine is up to date. - Social history:: Smoking status: Patient/guardian denies using tobacco, Stopped _ months ago 10. Screenin:46 Abuse screen: Denies threats or abuse. Denies injuries from another. Nutritional ph screening: No deficits noted. Tuberculosis screening: No symptoms or risk factors identified. Fall Risk None identified. Assessment: 12:45 General: Appears in no apparent distress. uncomfortable, well groomed, Behavior is ph calm, cooperative, appropriate for age. Pain: Complains of pain in left upper quadrant Pain radiates to chest. Neuro: Level of Consciousness is awake, alert, obeys commands, Oriented to person, place, time, situation. Cardiovascular: Capillary refill < 3 seconds in bilateral fingers Patient's skin is warm and dry. Respiratory: Airway is patent Respiratory effort is even, unlabored, Respiratory pattern is regular, symmetrical. GI: Abdomen is round non-distended, Reports upper abdominal pain, diarrhea, nausea, vomiting. Derm: Skin is intact, is healthy with good turgor, Skin is pink, warm \T\ dry. Musculoskeletal: Circulation, motion, and sensation intact. Range of motion: intact in all extremities. 13:45 Reassessment: Patient appears in no apparent distress at this time. Patient and/or ph family updated on plan of care and expected duration. Pain level reassessed. Patient is alert, oriented x 3, equal unlabored respirations, skin warm/dry/pink. Vital Signs: 11:27 BP 125 / 87; Pulse 72; Resp 20; Temp 98.4; Pulse Ox 98% ; Weight 97.52 kg; Height 5 ft. ll1 4 in. (162.56 cm); Pain 9/10; 13:00 BP 132 / 92; Pulse 76; Resp 16; Pulse Ox 97% on R/A; ph 14:30 BP 127 / 86; Pulse 74; Resp 18; Temp 98.0; Pulse Ox 97% on R/A; ph 11:27 Body Mass Index 36.90 (97.52 kg, 162.56 cm) ll1 ED Course: 11:23 Patient arrived in ED. mr 11:23 Lele Rahman DO is Private Physician. mr 11:28 Triage completed. ll1 11:28 Arm band placed on Patient placed in an exam room, on a stretcher. ll1 11:39 Joey Jung MD is Attending Physician. kdr 12:08 Solange Bennett RN is Primary Nurse. ph 12:44 Initial lab(s) drawn, by me, sent to lab. Inserted saline lock: 24 gauge in right hand, ph using aseptic technique. Blood collected. 12:46 Patient has correct armband on for positive identification. Placed in gown. Bed in low ph position. Call light in reach. Side rails up X 1. Pulse ox on. NIBP on. Door closed. Noise minimized. Warm blanket given. 13:25 Abdomen In Process Unspecified. EDMS 13:50 IV discontinued, intact, bleeding controlled, No redness/swelling at site. Pressure ph dressing applied. 13:50 No provider procedures requiring assistance completed. ph 14:38 Lele Rahman DO is Referral Physician. kdr Administered Medications: 12:44 Drug: Zofran (Ondansetron) 4 mg Route: IVP; Site: right hand; ph 14:55 Follow up: Response: No adverse reaction ph 13:22 Drug: morphine 2 mg Route: IVP; Site: right hand; ph 14:56 Follow up: Response: No adverse reaction ph 14:42 Not Given (Patient Refused): TORadol - Ketorolac 15 mg IVP once ph 14:42 Not Given (Other Intervention Used): NS 0.9% 500 ml IV at bolus once ph 14:50 Drug: Phenergan 25 mg Route: PO; ph 14:56 Follow up: Response: No adverse reaction ph Outcome: 14:43 Discharge ordered by . kdr 14:56 Discharged to home ambulatory. ph 14:56 Condition: good 14:56 Discharge instructions given to patient, Instructed on discharge instructions, follow up and referral plans. medication usage, Demonstrated understanding of instructions, follow-up care, medications, Prescriptions given X 1. 14:57 Patient left the ED. ph Signatures: Dispatcher [employer] EDMS Joey Jung MD MD kdr Rivera, Mary mr Solange Bennett RN RN ph Lewis, Lynsay, RN RN ll1
--- NOTE | 2020-02-15 14:44 | EDPHYS ---
Physician Documentation [facility] Name: Marjan Fleming Age: 65 yrs Sex: Female : 1955 Arrival Date: 02/15/2020 Time: 11:23 Bed 8 Private MD: Lele Rahman H ED Physician Joey Jung HPI: 02/14 16:57 This 65 yrs old Female presents to ER via Ambulatory with complaints of kdr Abdominal Pain. 16:57 The patient presents with abdominal pain that is diffuse, Left upper lateral pain. kdr Onset: The symptoms/episode began/occurred This is an ongoing pain that became worse about three days ago. The symptoms do not radiate. Associated signs and symptoms: Pertinent positives: nausea and vomiting, constipation, diarrhea, Pertinent negatives: headache, hematuria, palpitations, shortness of breath, vomiting blood. The symptoms are described as achy, crampy, waxing/waning. Modifying factors: The symptoms are alleviated by nothing, the symptoms are aggravated by nothing. Severity of pain: At its worst the pain was mild in the emergency department the pain is unchanged. The patient has not experienced similar symptoms in the past. The patient has not recently seen a physician. Historical: - Allergies: 11:29 Bactrim DS; ll1 11:29 Codeine; ll1 11:29 Demerol; ll1 11:29 metoclopramide HCl; ll1 11:29 Stadol; ll1 - PMHx: 11:29 Anxiety; Hepatitis; Hypertension; HIV; esophageal varices; COPD; Chronic pain; Bipolar ll1 disorder; Migraines; Atrial Fib; Panic Attacks; - PSHx: 11:29 Appendectomy; Cholecystectomy; ll1 - Immunization history:: Flu vaccine is up to date. - Social history:: Smoking status: Patient/guardian denies using tobacco, Stopped _ months ago 10. ROS: 16:57 Constitutional: Negative for fever, chills, and weight loss, Eyes: Negative for injury, kdr pain, redness, and discharge, ENT: Negative for injury, pain, and discharge, Neck: Negative for injury, pain, and swelling, Cardiovascular: Negative for chest pain, palpitations, and edema, Respiratory: Negative for shortness of breath, cough, wheezing, and pleuritic chest pain, Back: Negative for injury and pain, : Negative for injury, bleeding, discharge, and swelling, MS/Extremity: Negative for injury and deformity, Skin: Negative for injury, rash, and discoloration, Neuro: Negative for headache, weakness, numbness, tingling, and seizure activity. Psych: Negative for depression, anxiety, suicide ideation, homicidal ideation, and hallucinations, Allergy/Immunology: Negative for hives, rash, and allergies, Endocrine: Negative for neck swelling, polydipsia, polyuria, polyphagia, and marked weight changes, Hematologic/Lymphatic: Negative for swollen nodes, abnormal bleeding, and unusual bruising. 16:57 Abdomen/GI: Positive for abdominal pain, nausea, vomiting, and diarrhea, constipation, abdominal cramps. Exam: 16:57 Constitutional: This is a well developed, well nourished patient who is awake, alert, kdr and in no acute distress. Head/Face: Normocephalic, atraumatic. Eyes: Pupils equal round and reactive to light, extra-ocular motions intact. Lids and lashes normal. Conjunctiva and sclera are non-icteric and not injected. Cornea within normal limits. Periorbital areas with no swelling, redness, or edema. Neck: Trachea midline, no thyromegaly or masses palpated, and no cervical lymphadenopathy. Supple, full range of motion without nuchal rigidity, or vertebral point tenderness. No Meningismus. Chest/axilla: Normal chest wall appearance and motion. Nontender with no deformity. No lesions are appreciated. Cardiovascular: Regular rate and rhythm with a normal S1 and S2. No gallops, murmurs, or rubs. Normal PMI, no JVD. No pulse deficits. Respiratory: Lungs have equal breath sounds bilaterally, clear to auscultation and percussion. No rales, rhonchi or wheezes noted. No increased work of breathing, no retractions or nasal flaring. Back: No spinal tenderness. No costovertebral tenderness. Full range of motion. Skin: Warm, dry with normal turgor. Normal color with no rashes, no lesions, and no evidence of cellulitis. MS/ Extremity: Pulses equal, no cyanosis. Neurovascular intact. Full, normal range of motion. Neuro: Awake and alert, GCS 15, oriented to person, place, time, and situation. Cranial nerves II-XII grossly intact. Motor strength 5/5 in all extremities. Sensory grossly intact. Cerebellar exam normal. Normal gait. Psych: Awake, alert, with orientation to person, place and time. Behavior, mood, and affect are within normal limits. 16:57 Abdomen/GI: Inspection: abdomen appears normal, obese Bowel sounds: active, Palpation: soft, mild abdominal tenderness, in the anterior aspect of left lateral abdomen and left upper quadrant. Vital Signs: 11:27 BP 125 / 87; Pulse 72; Resp 20; Temp 98.4; Pulse Ox 98% ; Weight 97.52 kg; Height 5 ft. ll1 4 in. (162.56 cm); Pain 9/10; 13:00 BP 132 / 92; Pulse 76; Resp 16; Pulse Ox 97% on R/A; ph 14:30 BP 127 / 86; Pulse 74; Resp 18; Temp 98.0; Pulse Ox 97% on R/A; ph 11:27 Body Mass Index 36.90 (97.52 kg, 162.56 cm) ll1 MDM: 14:43 Patient medically screened. kdr 16:57 Data reviewed: vital signs, nurses notes, lab test result(s), radiologic studies. kdr Counseling: I had a detailed discussion with the patient and/or guardian regarding: the historical points, exam findings, and any diagnostic results supporting the discharge/admit diagnosis, lab results, radiology results, the need for outpatient follow up. 02/14 11:54 Order name: Basic Metabolic Panel; Complete [facility]: [facility] 02/14 11:54 Order name: CBC with Diff; Complete [facility]: 14:02 [facility] 02/14 11:54 Order name: Hepatic Function; Complete [facility]: 14:02 [facility] 02/14 11:54 Order name: Lipase; Complete Time: 14:02 [facility] 02/14 13:22 Order name: Abdomen ; Complete Time: 14:02 EDVT 02/14 11:54 Order name: IV Saline Lock; Complete Time: 12:32 [facility] 02/14 11:54 Order name: Labs collected and sent; Complete Time: 12:32 kdr Administered Medications: 12:44 Drug: Zofran (Ondansetron) 4 mg Route: IVP; Site: right hand; ph 14:55 Follow up: Response: No adverse reaction ph 13:22 Drug: morphine 2 mg Route: IVP; Site: right hand; ph 14:56 Follow up: Response: No adverse reaction ph 14:42 Not Given (Patient Refused): TORadol - Ketorolac 15 mg IVP once ph 14:42 Not Given (Other Intervention Used): NS 0.9% 500 ml IV at bolus once ph 14:50 Drug: Phenergan 25 mg Route: PO; ph 14:56 Follow up: Response: No adverse reaction ph Disposition: 02/15/20 14:43 Discharged to Home. Impression: Abdominal and pelvic pain. - Condition is Stable. - Discharge Instructions: Abdominal Pain, Adult, [id number]. - Prescriptions for Tramadol 50 mg Oral Tablet - take 1 tablet by ORAL route every 8 hours as needed; 12 tablet. - Medication Reconciliation Form, Thank You Letter, Prescription Opioid Use form. - Follow up: Lele Rahman DO; When: 2 - 3 days; Reason: If symptoms return, Further diagnostic work-up, Recheck today's complaints, Continuance of care, Re-evaluation by your physician. - Problem is an ongoing problem. - Symptoms have improved. Signatures: Dispatcher [employer] [facility] Joey Jung MD MD kdr Solange Bennett RN RN ph Yanira De Jesus RN RN ll1 Corrections: (The following items were deleted from the chart) 13:22 11:56 Abdomen Pelvis W Con+CT.RAD.BRZ ordered. [facility] 14:57 14:43 02/15/2020 14:43 Discharged to Home. Impression: Abdominal and pelvic pain. ph Condition is Stable. Forms are Medication Reconciliation Form, Thank You Letter, Antibiotic Education, Prescription Opioid Use. Follow up: Lele Rahman; When: 2 - 3 days; Reason: If symptoms return, Further diagnostic work-up, Recheck today's complaints, Continuance of care, Re-evaluation by your physician. Problem is an ongoing problem. Symptoms have improved. kdr
[2020-02-15 15:17] VITALS: O2SAT 97
[2020-02-15 15:23] VITALS: BP 127/86; TEMP 98
== END 2020-02-15 14:57 | disposition home or self-care (01) ==
LOC: ER 11:20
DX: R10.2 Pelvic and perineal pain (principal); R11.2 Nausea with vomiting, unspecified; I10 Essential (primary) hypertension; Z21 Asymptomatic human immunodeficiency virus [HIV] infection status; Z88.1 Allergy status to other antibiotic agents; Z88.5 Allergy status to narcotic agent; Z88.8 Allergy status to other drugs, medicaments and biological substances
CPT/HCPCS: 85025; 80048; 36415; 80076; 83690; 74176; 96375; 96374; 99284; J2270; J2405; Q0169

== ENCOUNTER 2020-04-01 15:53 | Inpatient (IN) | payer OTHER ==
--- OUTSIDE RECORDS SUMMARY | 2020-04-01 15:55 | XMS REPORT | Clinical Summary ---
:1955 Author Organization [facility] Address [address] [place] [address] Care Team Providers Name Role Phone Asked, [...] 10/19/2016 Unstable reverse total shoulder arthroplasty 7 Encounters Date Type Specialty Care Team Description 04/01/2020 Orders Only Cardiothoracic Surgery Provider, Cate andre MD 03/31/2020 Travel 03/27/2020 Telephone General Surgery Ramiro Mitchell MD after 04/01/2019 Surgical History Surgery Date Site/Laterality Comments ORTHOPEDIC SURGERY JOINT REPLACEMENT shoulder repla cement BREAST SURGERY cyst removed CHOLECYSTECTOMY APPENDECTOMY ARTHROPLASTY, SHOULDER, TOTAL 10/19/2016 Shoulder/Left Pr ocedure: REV. TOTAL SHOULDER ARTHROP LASTY, REMOVAL OF HARDW ARE ; Surgeon: Austin Bowles MD; Location: [address]; Service: Orthop edics; Laterality: Left ; Medical devices from this surgery are in t he Implants section. 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 Last Filed Vital Signs Not on file Plan of Treatment Date Type Specialty Care Team Description 04/07/2020 Office Visit Cardiothoracic Surgery Eliseo Glaser MD [address] [facility] [address] [place], [place] [address] [phone] Health Maintenance Due Date Last Done Comments CERVICAL CANCER SCREENING 01/22/1977 BREAST CANCER SCREENING 01/22/2006 COLONOSCOPY SCREENING 01/22/2006 SHINGLES VACCINES (#1) 01/22/2006 INFLUENZA VACCINE 12/22/2019 Implants Implanted Type Area Food Service Kitchen Supervisor Device Shelf Model / Identifier Expiration Serial / Date Lot Versa-Dial/Comp Ti Std Taper Used W/25mm Glenoid Basplate - [id number] N/A: N/A [employer] 01/22/2026 [id number] / Implanted: Qty: 1 on 10/19/2016 by Austin Bowles MD at [facility] IMPLANT / DEVICES [id number] 41mm Comprehensive Reverse Shoulder Glenosphere Ba - [id number] I PM N/A: N/A [employer] 11/21/2023 [id number] / Implanted: Qty: 1 on 10/19/2016 by Austin Bowles MD at [facility] IMPLANT / DEVICES [id number] Arcom Xl 44-41 Std +3 Humeral Brg - [id number] Left: [employer] 07/20/2017 XL [id number] / Implanted: Qty: 1 on 10/19/2016 by Austin Bowles MD at [facility] IMPLANT Shoulder / DEVICES [id number] Humeral Tray With Locking Ring +5 Left: [employer] 03/31/2026 [id number] / Implanted: Qty: 1 on 10/19/2016 by Austin Bowles MD at [facility] Shoulder / [id number] Results Not on fileafter 04/01/2019 Advance Directives For more information, please contact: [phone] Type Date Recorded Patient Shift Coordinator Explanati on Advance Directives, Living Will and Medical Power of Upholstery Tech
--- OUTSIDE RECORDS SUMMARY | 2020-04-01 15:55 | XMS REPORT | Continuity of Care Document ---
:1955 Author Organization [facility] t Address [address] [place] [address] Care Team Providers Name Role Phone Asked, Pcp Primary Care Physician Unavailable Provider Attending Clinician Curt Mitchell MD Attending Clinician DO SYL Attending Clinician Unavailable DO SYL Admitting Clinician Unavailable Payers Payer Name Policy Type Policy Effective Date Expiration Date Sour ce Number [facility] [id number] [place]TE 00:00:00 Confucianism [id number]/05/2016- PresentHMO [facility] MEDICAID[place]HC [id number] 2016 [place] COMM STAR+ 00:00:00 Confucianism [id number] 2016- PresentHMO Problems Condition Condition Condition Status Onset Resolution Last Treating Co mments Source Name Details Category Date Date Treatment Clinician Date S/p S/p Disease Active Meza reverse reverse 530 Methodi 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:00: 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 Unstable Unstable Disease Active Porsha on reverse reverse 3 Methodi 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:00: 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 Allergies, Adverse Reactions, Alerts Allergy Allergy Status Severity Reaction(s) Onset Inactive Treating Comm ents Source Name Type Date Date Clinician Metoclop Propensi Active Andreato n ramide ty to 5-04 Methodi Hcl adverse 00:00: st reaction 00 s to drug Codeine Propensi Active [place]derlin ty to 3-10 Methodi adverse 00:00: st reaction 00 s to drug Family History Family Member Diagnosis Comments Start Date Stop Date Source Natural father Hypertension Derrick Jean Natural father Kidney disease Andreato n Confucianism Social History Social Habit Start Date Stop Date Quantity Comments Source Sex Assigned At [facility] ethodist Exposure to Not sure [place] Metho dist SARS-CoV-2 (event) Cigarettes smoked 2016-11-03 2016-11-03 [place] Confucianism current (pack per 00:00:00 00:00:00 day) - Reported Tobacco use and 2016-11-03 2016-11-03 Never used [facility] ethodist exposure 00:00:00 00:00:00 Alcohol intake 2016-11-03 2016-11-03 Current drinker [place] Confucianism 00:00:00 00:00:00 of alcohol (finding) Alcohol Comment 2016-09-23 2016-09-23 rare [facility] ethodist 00:00:00 00:00:00 Smoking Status Start Date Stop Date Source Current every day smoker 2016-11-03 00:00:00 [place] Confucianism Medications Ordered Filled Start Stop Current Ordering [...] 10mg Take 10 mg [place] (NORVASC) 6-01 by mouth. Metho di 10 mg 20:31: st tablet 31 LORAZepam Yes 2mg Take 2 mg [place] (ATIVAN) 2 601 by mouth. Meth jason MG tablet 20:31: st 31 ARIPiprazol Yes 5mg Take 5 mg [place] (ABILIFY) 601 by mouth. Met hodi 5 MG tablet 20:31: st 31 sertraline 2017-0 Yes 200mg QD 200 mg [place] [...] times a day. clobetasol Yes Q.5D Apply [place] (TEMOVATE) 6-01 topically Meth jason 0.05 % 20:31: 2 (two) st ointment 31 times a day. DESCOVY Yes Meza 200-25 mg 3-20 Methodi tablet 00:00: st 00 ISENTRESS 2016- Yes TK 1 T PO [place] 400 mg 3-18 BID Methodi tablet 00:00: st 00 Procedures This patient has no known procedures. Plan of Care Planned Activity Planned Date Details Comments Source Future Scheduled 2019-12-22 INFLUENZA VACCINE [place]ucianism Test 00:00:00 [code = INFLUENZA VACCINE] Future Scheduled 2006-01-22 BREAST CANCER [facility] thodist Test 00:00:00 SCREENING [code = BREAST CANCER SCREENING] Future Scheduled 2006-01-22 COLONOSCOPY SCREENING elena Confucianism Test 00:00:00 [code = COLONOSCOPY SCREENING] Future Scheduled 2006-01-22 SHINGLES VACCINES [place] Test 00:00:00 (#1) [code = SHINGLES VACCINES (#1)] Future Scheduled 1977-01-22 Screening for [facility] thodist Test 00:00:00 malignant neoplasm of cervix (procedure) [code = 033309713] Results Test Description Test Time Test Comments [...] (qualifier value) Not Detected N URINALYSIS WITH [id number] 10:57:00 Test Item Value Reference Range Interpretation Comments Color (test code = UCOLR) Dk. Yellow Clarity (test code = UCLAR) Hazy Glucose (test code = UGLUC) NEGATIVE NEGATIVE N Bilirubin (test code = UBILI) NEGATIVE NEGATIVE N Ketones (test code = UKET) NEGATIVE NEGATIVE N Specific [place] (test code = 1.025 1.005-1.030 A USPGR) [...]
--- OUTSIDE RECORDS SUMMARY | 2020-04-01 15:59 | XMS REPORT | Clinical Summary ---
:1955 Author Organization [facility] Address [address] [place] [address] Care Team Providers Name Role Phone Rahman [...] cholestyramine 4 gram 0 07/27/2019 Active packet LORazepam 2 mg Take 1 tablet 60 tablet 2 01/16/2020 Active tabletIndications: by mouth 2 Generalized anxiety (two) times disorder daily as needed (anxiety). proMETHazine 12.5 mg Take 1 tablet 9 tablet 0 01/26/2020 Active tabletIndications: by mouth every History of abdominal 4 (four) hours hernia, Chronic as needed for abdominal pain Nausea and Vomiting (N/V). SERTraline 100 mg Take 2 tablets 60 tablet 3 03/03/2020 Active tabletIndications: by mouth daily. Mild depressed bipolar II disorder mirtazapine (REMERON) Take half a tab 30 tablet 2 03/03/2020 Active 15 mg at bedtime. tabletIndications: Insomnia, unspecified type busPIRone 10 mg Take 2 tablets 180 tablet 2 03/03/2020 Active tabletIndications: by mouth in the Generalized anxiety morning, 1 disorder tablet at night. traMADoL 50 mg Take 1 tablet 20 [...] Encounters Date Type Specialty Care Team Description 03/03/2020 Travel 02/06/2020 Telephone Infectious Disease [place], Assessmen [place] 01/26/2020 Emergency Emergency Medicine Elsa Mclean a bdominal pain (Primary Dx); JOSE M [...] comments Father ESRD Coronary Heart Disease Father ND, late 60s? Cancer Mother leukemia Relation Name Status Comments Father stroke or ND Father Father Father Mother Mother Social History [...] been in contact with No / Unsure 03/03/2020 7:54 AM CDT someone who was confirmed or suspected to have Coronavirus / COVID-19? Last Filed Vital Signs Vital Sign Reading Time Taken Comments Blood Pressure 121/73 03/03/2020 8:05 AM CDT Pulse 58 03/03/2020 8:05 AM CDT Temperature 36.9 C (98.4 F) 01/26/2020 9:58 AM CDT Respiratory Rate 20 03/03/2020 8:05 AM CDT Oxygen Saturation 92% 01/26/2020 1:00 PM CDT Inhaled Oxygen Concentration - - Weight 98.4 kg (217 lb) 03/03/2020 8:05 AM CDT Height 162.6 cm (5' 4") 03/03/2020 8:05 AM CDT Body Mass Index 37.25 03/03/2020 8:05 AM CDT Plan of Treatment Health Maintenance [...] (2 - Td) 11/18/2020 11/18/2010 Depression Screening 03/03/2021 03/03/2020, 03/03/2020 HEPATITIS C (HCV) SCREEN Completed 07/06/2010 PNEUMOCOCCAL 0-64 YEARS COMBINED Completed 01/30/2014, , SERIES 10/04/2001 Implants Implanted Type Area Airport Operations Crew Member Device Shelf Model / Identifier Expiration Serial / Lot Date Central Screw SHOULDER Left: Biomet 03/23/2024 [id number] / Implanted: Qty: 1 on 02/17/2015 by Roland Dixon MD at [facility] Shoulder 3 [id number] / [id number] Mini Humeral Stem SHOULDER Left: [employer] 07/31/2024 [id number] / Implanted: Qty: 1 on 02/17/2015 by Roland Dixon MD at [facility] Shoulder [id number] / [id number] Fixed Locking Screw SHOULDER Left: Biomet [id number] / Implanted: Qty: 1 on 02/17/2015 by Roland Dixon MD at [facility] Shoulder [id number] / [id number] Glenosphere SHOULDER Left: [employer] 12/05/2024 [id number] / Implanted: Qty: 1 on 02/17/2015 by Roland Dixon MD at [facility] Shoulder [id number] / [id number] Fixed Locking Screw SHOULDER Left: [employer] 12/30/2024 [id number] / Implanted: Qty: 1 on 02/17/2015 by Roland Dixon MD at [facility] Shoulder [id number] / [id number] Fixed Locking Screw SHOULDER Left: [employer] 12/31/2024 [id number] / Implanted: Qty: 1 on 02/17/2015 by Roland Dixon MD at [facility] Shoulder 0 [id number] / [id number] Humeral Tray With Locking Ring SHOULDER Left: [employer] 12/16/2024 [id number] / Implanted: Qty: 1 on 02/17/2015 by Roland Dixon MD at [facility] Shoulder [id number] / [id number] Glensphere Mini Baseplate SHOULDER Left: [employer]omet 01/21 [id number] / Implanted: Qty: 1 on 02/17/2015 by Roland Dixon MD at [facility] Shoulder [id number] / [id number] Humeral Bearing SHOULDER Left: [employer]omet 12/12/2019 XL- [id number] / Implanted: Qty: 1 on 02/17/2015 by Roland Dixon MD at [facility] Shoulder 5 [id number] / [id number] Fixed Locking Scew SHOULDER Left: [employer] 12/11/2024 [id number] / Implanted: Qty: 1 on 02/17/2015 by Roland Dixon MD at [facility] Shoulder [id number] / [id number] Procedures Procedure Name Priority Date/Time Associated Comments [...] 10:28 Abdominal pain , Results for this (34589) (ALB,T.PRO,BILI AM CDT unspecified proc edure are [...] of the pelvis was excluded in the clidm-me-bkdu. 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 [...] of the pelvis was excluded in the hhtkl-tj-izhm. 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 [...] Sig nature WBC 6.30 4.30 - 11.10 [facility] 10*3/L [facility] RBC 4.01 3.93 - 5.25 [facility] 10*6/L [facility] HGB 10.6 (L) 11.6 - 15.0 [facility] g/dL [facility] HCT 35.3 (L) 35.7 - 45.2 % [facility] MCV 88.0 80.6 - 95.5 fL [facility] MCH 26.4 25.9 - 32.8 pg [facility] MCHC 30.0 (L) 31.6 - 35.1 [facility] g/dL [facility] RDW-SD 52.6 (H) 39.0 - 49.9 fL [facility] RDW-CV 16.2 (H) 12.0 - 15.5 % [facility] PLT 192 166 - 358 [facility] 10*3/L [facility] MPV 9.5 9.5 - 12.9 fL [facility] NRBC/100 WBC 0.0 0.0 - 10.0 /100 [facility] WBCs [facility] NRBC x10^3 <0.01 10*3/L [facility] GRAN MAT (NEUT) % 66.9 % [facility] IMM GRAN % 0.60 % [facility] LYMPH % 20.0 % [facility] MONO % 11.4 % [facility] EOS % 0.8 % [facility] BASO % 0.3 % [facility] GRAN MAT x10^3(ANC) 4.21 1.88 - 7.09 [facility] 10*3/uL [facility] IMM GRAN x10^3 0.04 0.00 - 0.06 [facility] 10*3/uL [facility] LYMPH x10^3 1.26 (L) 1.32 - 3.29 [facility] 10*3/uL [facility] MONO x10^3 0.72 0.33 - 0.92 [facility] 10*3/uL [facility] EOS x10^3 0.05 0.03 - 0.39 [facility] 10*3/uL [facility] BASO x10^3 <0.03 0.01 - 0.07 [facility] 10*3/uL [facility] Specimen Blood - VENOUS Performing Organization Address City/State/Zipcode Phone Number [facility] CLIA: [id number] [place] [address] Basic Metabolic Panel (NA, K, CL, CO2, GLUCOSE, BUN, CREATININE, CA) (01/26/2020 10:28 AM CDT) Pathologist [facility] nature NA 139 135 - 145 [facility] mmol/L [facility] K 3.4 (L) 3.5 - 5.0 [facility] mmol/L [facility] CL 103 98 - 108 mmol/L [facility] CO2 TOTAL 28 23 - 31 mmol/L [facility] AGAP 8 2 - 16 [facility] BUN 24 (H) 7 - 23 mg/dL [facility] GLUCOSE 98 70 - 110 mg/dL [facility] CREATININE 0.97 0.50 - 1.04 [facility] mg/dL [facility] CALCIUM 8.3 (L) 8.6 - 10.6 [facility] mg/dL [facility] eGFR Calculation 57.8 mL/min/1.73m2 [facility] [place]) eGFR Calculation 70.1 mL/min/1.73m2 [facility] () [facility] Specimen Blood - VENOUS Narrative Performed At [facility] of Glomerular Filtration Rate (GFR) [facility] and Staging of Kidney Disease* [...] tests). Performing Organization Address City/State/Zipcode Phone Number [facility] CLIA: [id number] [place] [address] Hepatic Function Panel (ALB, T.PRO, BILI T, BU/BC, ALT, AST, ALK PHOS) (01/26/2020 10:28 AM CDT) [facility] nature TOTAL BILI 0.4 0.1 - 1.1 mg/dL [facility] BILI UNCON 0.4 0.1 - 1.1 mg/dL [facility] BILI CONJ 0.0 0.0 - 0.3 mg/dL [facility] T PROTEIN 6.9 6.3 - 8.2 g/dL [facility] ALBUMIN 3.9 3.5 - 5.0 g/dL [facility] ALK PHOS 79 34 - 122 U/L [facility] ALTv 31 5 - 35 U/L [facility] AST(SGOT) 34 13 - 40 U/L [facility] Specimen Blood - VENOUS Performing Organization Address City/State/Zipcode Phone Number [facility] CLIA: [id number] [place] [address] Lipase Serum (01/26/2020 10:28 AM CDT) Pathologist Sig nature LIPASE 109 0 - 220 U/L [facility] Specimen Blood - VENOUS Performing Organization Address City/State/Zipcode Phone Number [facility] CLIA: [id number] [place] [address] NOTICE OF PRIVACY [...] ID Effective Phone Address T ype [facility] [id number] 2019-Pre Medicar e Adv HEALTHCARE - HEALTHCARE sent HMO MANAGED DUAL COMPLETE MEDICARE HMO [facility] [id number] 2019-Pre [address] Beh avioral [facility] sent [phone] [place] [address] 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
--- OUTSIDE RECORDS SUMMARY | 2020-04-01 15:59 | XMS REPORT | Clinical Summary ---
:1955 Author Organization [facility] - [facility] Address [address] [place] [address] Care Team Providers Name Role Phone Rahman [...] comments Father ESRD Coronary Heart Disease Father [place], late 60s? Cancer Mother leukemia Relation Name Status Comments Father stroke or [place] Father Father Father Mother Mother Social History [...] , SERIES 10/04/2001 Implants Implanted Type Area Electric Milkers Installer Device Shelf Model / Identifier Expiration Serial / Lot Date Central Screw SHOULDER Left: Biomet 03/23/2024 [id number] / Implanted: Qty: 1 on 02/17/2015 by Roland Dixon MD at [facility] Shoulder 3 [id number] / [id number] Mini Humeral Stem SHOULDER Left: Biomet 07/31/2024 1 [id number] / Implanted: Qty: 1 on 02/17/2015 by Roland Dixon MD at [facility] Shoulder 4 [id number] / [id number] Fixed Locking Screw SHOULDER Left: Biomet 5 [id number] / Implanted: Qty: 1 on 02/17/2015 by Roland Dixon MD at [facility] Shoulder 8 [id number] / [id number] Glenosphere SHOULDER Left: Biomet 12/05/2024 [id number] / Implanted: Qty: 1 on 02/17/2015 by Roland Dixon MD at [facility] Shoulder 7 [id number] / [id number] Fixed Locking Screw SHOULDER Left: Biomet 12/30/2024 [id number] / Implanted: Qty: 1 on 02/17/2015 by Roland Dixon MD at [facility] Shoulder 0 [id number] / [id number] Fixed Locking Screw SHOULDER Left: Biomet 12/31/2024 [id number] / Implanted: Qty: 1 on 02/17/2015 by Roland Dixon MD at [facility] Shoulder 0 [id number] / [id number] Humeral Tray With Locking Ring SHOULDER Left: Biomet 12/16/2024 [id number] / Implanted: Qty: 1 on 02/17/2015 by Roland Dixon MD at [facility] Shoulder 8 [id number] / [id number] Glensphere Mini Baseplate SHOULDER Left: Biomet 01/21 [id number] / Implanted: Qty: 1 on 02/17/2015 by Roland Dixon MD at [facility] Shoulder 1 [id number] / [id number] Humeral Bearing SHOULDER Left: Biomet 12/12/2019 XL- [id number] / Implanted: Qty: 1 on 02/17/2015 by Roland Dixon MD at [facility] Shoulder 5 [id number] / [id number] Fixed Locking Scew SHOULDER Left: Biomet 12/11/2024 [id number] / Implanted: Qty: 1 on 02/17/2015 by Roland Dixon MD at [facility] Shoulder 8 [id number] / [id number] Procedures Procedure Name Priority Date/Time Associated Comments [...] 10:28 Abdominal pain , Results for this (44972) (ALB,T.PRO,BILI AM CDT unspecified proc edure are [...] of the pelvis was excluded in the tacxb-wf-[id number]. 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 [...] of the pelvis was excluded in the qcizu-hp-kpry. 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 [...] Sig nature WBC 6.30 4.30 - 11.10 [facility] 10*3/L [facility] RBC 4.01 3.93 - 5.25 [facility] 10*6/L [facility] HGB 10.6 (L) 11.6 - 15.0 [facility] g/dL [facility] HCT 35.3 (L) 35.7 - 45.2 % [facility] MCV 88.0 80.6 - 95.5 fL [facility] MCH 26.4 25.9 - 32.8 pg [facility] MCHC 30.0 (L) 31.6 - 35.1 [facility] g/dL [facility] RDW-SD 52.6 (H) 39.0 - 49.9 fL [facility] RDW-CV 16.2 (H) 12.0 - 15.5 % [facility] PLT 192 166 - 358 [facility] 10*3/L [facility] MPV 9.5 9.5 - 12.9 fL [facility] NRBC/100 WBC 0.0 0.0 - 10.0 /100 [facility] WBCs [facility]OSPITAL [facility] NRBC x10^3 <0.01 10*3/L [facility] GRAN MAT (NEUT) % 66.9 % [facility] IMM GRAN % 0.60 % [facility] LYMPH % 20.0 % [facility] MONO % 11.4 % [facility] EOS % 0.8 % [facility] BASO % 0.3 % [facility] GRAN MAT x10^3(ANC) 4.21 1.88 - 7.09 [facility] 10*3/uL [facility] IMM GRAN x10^3 0.04 0.00 - 0.06 [facility] 10*3/uL [facility] LYMPH x10^3 1.26 (L) 1.32 - 3.29 [facility] 10*3/uL [facility] MONO x10^3 0.72 0.33 - 0.92 [facility] 10*3/uL [facility] EOS x10^3 0.05 0.03 - 0.39 [facility] 10*3/uL [facility] BASO x10^3 <0.03 0.01 - 0.07 [facility] 10*3/uL [facility] Specimen Blood - VENOUS Performing Organization Address City/State/Zipcode Phone Number [facility] CLIA: [id number] [place] [address] Basic Metabolic Panel (NA, K, CL, CO2, GLUCOSE, BUN, CREATININE, CA) (01/26/2020 10:28 AM CDT) Pathologist [facility] nature NA 139 135 - 145 [facility] mmol/L [facility] K 3.4 (L) 3.5 - 5.0 [facility] mmol/L [facility] CL 103 98 - 108 mmol/L [facility] CO2 TOTAL 28 23 - 31 mmol/L [facility] AGAP 8 2 - 16 [facility] BUN 24 (H) 7 - 23 mg/dL [facility] GLUCOSE 98 70 - 110 mg/dL [facility] CREATININE 0.97 0.50 - 1.04 [facility] mg/dL [facility] CALCIUM 8.3 (L) 8.6 - 10.6 [facility] mg/dL [facility] eGFR Calculation 57.8 mL/min/1.73m2 [facility] ([facility] LABORATORY Chinese) eGFR Calculation 70.1 mL/min/1.73m2 [facility] () [facility] Specimen Blood - VENOUS Narrative Performed At [facility] of Glomerular Filtration Rate (GFR) [facility] and Staging of Kidney Disease* [...] tests). Performing Organization Address City/State/Zipcode Phone Number [facility] CLIA: [id number] [place] [address] Hepatic Function Panel (ALB, T.PRO, BILI T, BU/BC, ALT, AST, ALK PHOS) (01/26/2020 10:28 AM CDT) [facility] nature TOTAL BILI 0.4 0.1 - 1.1 mg/dL [facility] BILI UNCON 0.4 0.1 - 1.1 mg/dL [facility] BILI CONJ 0.0 0.0 - 0.3 mg/dL [facility] T PROTEIN 6.9 6.3 - 8.2 g/dL [facility] ALBUMIN 3.9 3.5 - 5.0 g/dL [facility] ALK PHOS 79 34 - 122 U/L [facility] ALTv 31 5 - 35 U/L [facility] AST(SGOT) 34 13 - 40 U/L [facility] Specimen Blood - VENOUS Performing Organization Address City/State/Zipcode Phone Number [facility] CLIA: [id number] [place] [address] Lipase Serum (01/26/2020 10:28 AM CDT) Pathologist Sig nature LIPASE 109 0 - 220 U/L [facility] Specimen Blood - VENOUS Performing Organization Address City/State/Zipcode Phone Number [facility] CLIA: [id number] [place] [address] NOTICE OF PRIVACY [...] ID Effective Phone Address T ype Group [facility] [id number] 2019-Pre Medicar e Adv HEALTHCARE - HEALTHCARE sent HMO MANAGED DUAL COMPLETE MEDICARE HMO [facility] [id number] 2019-Pre P O BOX Beh avioral [facility] sent [phone] [place] [address] [facility] MEDICAID OF [id number] 2019-Pre [phone] O BOX Medic aid [place] sent [phone] [place] [address] [facility] Self 1955 [phone] [place] [address] Advance Directives Type Date 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
--- OUTSIDE RECORDS SUMMARY | 2020-04-01 16:00 | XMS REPORT | Clinical Summary ---
:1955 Author Organization [facility] - [facility] Address [address] [place] [address] Care Team Providers Name Role Phone Rahman [...] , SERIES 10/04/2001 Implants Implanted Type Area Registered Dietician Device Shelf Model / Identifier Expiration Serial / Lot Date Central Screw SHOULDER Left: Biomet 03/23/2024 [id number] / Implanted: Qty: 1 on 02/17/2015 by Roland Dixon MD at [facility] Shoulder 3 [id number] / [id number] Mini Humeral Stem SHOULDER Left: Biomet 07/31/2024 1 [id number] / Implanted: Qty: 1 on 02/17/2015 by Roland Dixon MD at [facility] Shoulder 4 [id number] / [id number] Fixed Locking Screw SHOULDER Left: Biomet 5 [id number] / Implanted: Qty: 1 on 02/17/2015 by Roland Dixon MD at [facility] Shoulder 8 [id number] / [id number] Glenosphere SHOULDER Left: Biomet 12/05/2024 [id number] / Implanted: Qty: 1 on 02/17/2015 by Roland Dixon MD at [facility] Shoulder 7 [id number] / [id number] Fixed Locking Screw SHOULDER Left: Biomet 12/30/2024 [id number] / Implanted: Qty: 1 on 02/17/2015 by Roland Dixon MD at [facility] Shoulder 0 [id number] / [id number] Fixed Locking Screw SHOULDER Left: Biomet 12/31/2024 [id number] / Implanted: Qty: 1 on 02/17/2015 by Roland Dixon MD at [facility] Shoulder 0 [id number] / [id number] Humeral Tray With Locking Ring SHOULDER Left: Biomet 12/16/2024 [id number] / Implanted: Qty: 1 on 02/17/2015 by Roland Dixon MD at [facility] Shoulder 8 [id number] / [id number] Glensphere Mini Baseplate SHOULDER Left: Biomet 01/21 [id number] / Implanted: Qty: 1 on 02/17/2015 by Roland Dixon MD at [facility] Shoulder 1 [id number] / [id number] Humeral Bearing SHOULDER Left: Biomet 12/12/2019 XL- [id number] / Implanted: Qty: 1 on 02/17/2015 by Roland Dixon MD at [facility] Shoulder 5 [id number] / [id number] Fixed Locking Scew SHOULDER Left: Biomet 12/11/2024 [id number] / Implanted: Qty: 1 on 02/17/2015 by Roland Dixon MD at [facility] Shoulder 8 [id number] / [id number] Procedures Procedure Name Priority Date/Time Associated Comments [...] 10:28 Abdominal pain , Results for this (64236) (ALB,T.PRO,BILI AM CDT unspecified proc edure are [...] of the pelvis was excluded in the fazjs-qx-ujmy. 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 [...] of the pelvis was excluded in the vcjjq-ob-vqqm. 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 [...] Sig nature WBC 6.30 4.30 - 11.10 [facility] 10*3/L [facility] RBC 4.01 3.93 - 5.25 [facility] 10*6/L HOSPITAL LAB[facility]ORY HGB 10.6 (L) 11.6 - 15.0 [facility] g/dL HOSPITAL [facility] HCT 35.3 (L) 35.7 - 45.2 % [facility] MCV 88.0 80.6 - 95.5 fL [facility] MCH 26.4 25.9 - 32.8 pg [facility] MCHC 30.0 (L) 31.6 - 35.1 [facility] g/dL [facility] RDW-SD 52.6 (H) 39.0 - 49.9 fL [facility] RDW-CV 16.2 (H) 12.0 - 15.5 % [facility] PLT 192 166 - 358 [facility] 10*3/L HOSPITAL [facility]ORY MPV 9.5 9.5 - 12.9 fL [facility] NRBC/100 WBC 0.0 0.0 - 10.0 /100 [facility] WBCs HOSPITAL LAB[facility]ORY NRBC x10^3 <0.01 10*3/L [facility] GRAN MAT (NEUT) % 66.9 % [facility] IMM GRAN % 0.60 % [facility] LYMPH % 20.0 % [facility] MONO % 11.4 % [facility] EOS % 0.8 % [facility] BASO % 0.3 % [facility] GRAN MAT x10^3(ANC) 4.21 1.88 - 7.09 [facility] 10*3/uL [facility] IMM GRAN x10^3 0.04 0.00 - 0.06 [facility] 10*3/uL [facility] LYMPH x10^3 1.26 (L) 1.32 - 3.29 [facility] 10*3/uL [facility] MONO x10^3 0.72 0.33 - 0.92 [facility] 10*3/uL [facility] EOS x10^3 0.05 0.03 - 0.39 [facility] 10*3/uL [facility] BASO x10^3 <0.03 0.01 - 0.07 [facility] 10*3/uL [facility] Specimen Blood - VENOUS Performing Organization Address City/State/Zipcode Phone Number [facility] CLIA: [id number] [place] [address] Basic Metabolic Panel (NA, K, CL, CO2, GLUCOSE, BUN, CREATININE, CA) (01/26/2020 10:28 AM CDT) Pathologist [facility] nature NA 139 135 - 145 [facility] mmol/L [facility] K 3.4 (L) 3.5 - 5.0 [facility] mmol/L [facility] CL 103 98 - 108 mmol/L [facility] CO2 TOTAL 28 23 - 31 mmol/L [facility] AGAP 8 2 - 16 [facility] BUN 24 (H) 7 - 23 mg/dL [facility] GLUCOSE 98 70 - 110 mg/dL [facility] CREATININE 0.97 0.50 - 1.04 [facility] mg/dL [facility] CALCIUM 8.3 (L) 8.6 - 10.6 [facility] mg/dL [facility] eGFR Calculation 57.8 mL/min/1.73m2 [facility] (Non[facility] LABORATORY Haitian) eGFR Calculation 70.1 mL/min/1.73m2 [facility] () [facility] Specimen Blood - VENOUS Narrative Performed At [facility] [place] of Glomerular Filtration Rate (GFR) [facility] [...] tests). Performing Organization Address City/State/Zipcode Phone Number [facility] CLIA: [id number] [place] [address] Hepatic Function Panel (ALB, T.PRO, BILI T, BU/BC, ALT, AST, ALK PHOS) (01/26/2020 10:28 AM CDT) [facility] nature TOTAL BILI 0.4 0.1 - 1.1 mg/dL [facility] BILI UNCON 0.4 0.1 - 1.1 mg/dL [facility] BILI CONJ 0.0 0.0 - 0.3 mg/dL [facility] T PROTEIN 6.9 6.3 - 8.2 g/dL [facility] ALBUMIN 3.9 3.5 - 5.0 g/dL [facility] ALK PHOS 79 34 - 122 U/L [facility] ALTv 31 5 - 35 U/L [facility] AST(SGOT) 34 13 - 40 U/L [facility] Specimen Blood - VENOUS Performing Organization Address City/State/Zipcode Phone Number [facility] CLIA: [id number] [place] [address] Lipase Serum (01/26/2020 10:28 AM CDT) Pathologist Sig nature LIPASE 109 0 - 220 U/L [facility] Specimen Blood - VENOUS Performing Organization Address City/State/Zipcode Phone Number [facility] CLIA: [id number] [place] [address] NOTICE OF PRIVACY [...] T ype Group 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
--- OUTSIDE RECORDS SUMMARY | 2020-04-01 16:00 | XMS REPORT | Clinical Summary ---
:1955 Author Organization [facility] - [facility] Address [address] [place] [address] Care Team Providers Name Role Phone Rahman [...] comments Father ESRD Coronary Heart Disease Father [place], late 60s? Cancer Mother leukemia Relation Name Status Comments Father stroke or [place] Father Father Father Mother Mother Social History [...] , SERIES 10/04/2001 Implants Implanted Type Area Autoglazier Device Shelf Model / Identifier Expiration Serial / Lot Date Central Screw SHOULDER Left: Biomet 03/23/2024 [id number] / Implanted: Qty: 1 on 02/17/2015 by Roland Dixon MD at [facility] Shoulder 3 [id number] / [id number] Mini Humeral Stem SHOULDER Left: Biomet 07/31/2024 1 [id number] / Implanted: Qty: 1 on 02/17/2015 by Roland Dixon MD at [facility] Shoulder 4 [id number] / [id number] Fixed Locking Screw SHOULDER Left: Biomet 5 [id number] / Implanted: Qty: 1 on 02/17/2015 by Roland Dixon MD at [facility] Shoulder 8 [id number] / [id number] Glenosphere SHOULDER Left: Biomet 12/05/2024 [id number] / Implanted: Qty: 1 on 02/17/2015 by Roland Dixon MD at [facility] Shoulder 7 [id number] / [id number] Fixed Locking Screw SHOULDER Left: Biomet 12/30/2024 [id number] / Implanted: Qty: 1 on 02/17/2015 by Roland Dixon MD at [facility] Shoulder 0 [id number] / [id number] Fixed Locking Screw SHOULDER Left: Biomet 12/31/2024 [id number] / Implanted: Qty: 1 on 02/17/2015 by Roland Dixon MD at [facility] Shoulder 0 [id number] / [id number] Humeral Tray With Locking Ring SHOULDER Left: Biomet 12/16/2024 [id number] / Implanted: Qty: 1 on 02/17/2015 by Roland Dixon MD at [facility] Shoulder 8 [id number] / [id number] Glensphere Mini Baseplate SHOULDER Left: Biomet 01/21 [id number] / Implanted: Qty: 1 on 02/17/2015 by Roland Dixon MD at [facility] Shoulder 1 [id number] / [id number] Humeral Bearing SHOULDER Left: Biomet 12/12/2019 XL- [id number] / Implanted: Qty: 1 on 02/17/2015 by Roland Dixon MD at [facility] Shoulder 5 [id number] / [id number] Fixed Locking Scew SHOULDER Left: Biomet 12/11/2024 [id number] / Implanted: Qty: 1 on 02/17/2015 by Roland Dixon MD at [facility] Shoulder 8 [id number] / [id number] Procedures Procedure Name Priority Date/Time Associated Comments [...] 10:28 Abdominal pain , Results for this (39523) (ALB,T.PRO,BILI AM CDT unspecified proc edure are [...] of the pelvis was excluded in the jexzf-tw-nhyl. 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 [...] of the pelvis was excluded in the tiyjm-ee-mcdg. 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 [...] Sig nature WBC 6.30 4.30 - 11.10 [facility] 10*3/L [facility] RBC 4.01 3.93 - 5.25 [facility] 10*6/L HOSPITAL LABORATORY HGB 10.6 (L) 11.6 - 15.0 [facility] g/dL HOSPITAL LAB[facility]ATORY HCT 35.3 (L) 35.7 - 45.2 % [facility] MCV 88.0 80.6 - 95.5 fL [facility] MCH 26.4 25.9 - 32.8 pg [facility] MCHC 30.0 (L) 31.6 - 35.1 [facility] g/dL [facility] RDW-SD 52.6 (H) 39.0 - 49.9 fL [facility] RDW-CV 16.2 (H) 12.0 - 15.5 % [facility] PLT 192 166 - 358 [facility] 10*3/L HOSPITAL LAB[facility]ATORY MPV 9.5 9.5 - 12.9 fL [facility] NRBC/100 WBC 0.0 0.0 - 10.0 /100 [facility] WBCs HOSPITAL LABORATORY NRBC x10^3 <0.01 10*3/L [facility] GRAN MAT (NEUT) % 66.9 % [facility] IMM GRAN % 0.60 % [facility] LYMPH % 20.0 % [facility] MONO % 11.4 % [facility] EOS % 0.8 % [facility] BASO % 0.3 % [facility] GRAN MAT x10^3(ANC) 4.21 1.88 - 7.09 [facility] 10*3/uL [facility] IMM GRAN x10^3 0.04 0.00 - 0.06 [facility] 10*3/uL [facility] LYMPH x10^3 1.26 (L) 1.32 - 3.29 [facility] 10*3/uL [facility] MONO x10^3 0.72 0.33 - 0.92 [facility] 10*3/uL [facility] EOS x10^3 0.05 0.03 - 0.39 [facility] 10*3/uL [facility] BASO x10^3 <0.03 0.01 - 0.07 [facility] 10*3/uL [facility] Specimen Blood - VENOUS Performing Organization Address City/State/Zipcode Phone Number [facility] CLIA: [id number] [place] [address] Basic Metabolic Panel (NA, K, CL, CO2, GLUCOSE, BUN, CREATININE, CA) (01/26/2020 10:28 AM CDT) Pathologist [facility] nature NA 139 135 - 145 [facility] mmol/L [facility] K 3.4 (L) 3.5 - 5.0 [facility] mmol/L [facility] CL 103 98 - 108 mmol/L [facility] CO2 TOTAL 28 23 - 31 mmol/L [facility] AGAP 8 2 - 16 [facility] BUN 24 (H) 7 - 23 mg/dL [facility] GLUCOSE 98 70 - 110 mg/dL [facility] CREATININE 0.97 0.50 - 1.04 [facility] mg/dL [facility] CALCIUM 8.3 (L) 8.6 - 10.6 [facility] mg/dL [facility] eGFR Calculation 57.8 mL/min/1.73m2 [facility] (Non[facility] LABORATORY [place]) eGFR Calculation 70.1 mL/min/1.73m2 [facility] () [facility] Specimen Blood - VENOUS Narrative Performed At [facility] of Glomerular Filtration Rate (GFR) [place] [...] Performing Organization Address City/State/Zipcode Phone Number [facility] CLIA: [id number] [place] [address] Hepatic Function Panel (ALB, T.PRO, BILI T, BU/BC, ALT, AST, ALK PHOS) (01/26/2020 10:28 AM CDT) [facility] nature TOTAL BILI 0.4 0.1 - 1.1 mg/dL [facility] BILI UNCON 0.4 0.1 - 1.1 mg/dL [facility] BILI CONJ 0.0 0.0 - 0.3 mg/dL [facility] T PROTEIN 6.9 6.3 - 8.2 g/dL [facility] ALBUMIN 3.9 3.5 - 5.0 g/dL [facility] ALK PHOS 79 34 - 122 U/L [facility] ALTv 31 5 - 35 U/L [facility] AST(SGOT) 34 13 - 40 U/L [facility] Specimen Blood - VENOUS Performing Organization Address City/State/Zipcode Phone Number [facility] CLIA: [id number] [place] [address] Lipase Serum (01/26/2020 10:28 AM CDT) Pathologist Sig nature LIPASE 109 0 - 220 U/L [facility] Specimen Blood - VENOUS Performing Organization Address City/State/Zipcode Phone Number [facility] CLIA: [id number] [place] [address] NOTICE OF PRIVACY [...] ID Effective Phone Address [facility] [phone] 2019-Pre Medicar e Adv HEALTHCARE - HEALTHCARE sent HMO MANAGED DUAL COMPLETE MEDICARE HMO [facility] [id number] 2019-Pre [address] Beh [facility] sent [id number] [place] [address] [facility] MEDICAID OF [id number] 2019-Pre [phone] Medic aid [place] sent [phone] [place] [address] [facility] Self 1955 [phone] [place] [address] Advance Directives Type Date Recorded 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
--- OUTSIDE RECORDS SUMMARY | 2020-04-01 16:01 | XMS REPORT | Clinical Summary ---
:1955 Author Organization [facility] - [facility] Address [address] [place] [id number] Care Team Providers Name Role Phone Rahman [...] packet LORazepam 2 mg Take 1 tablet by 60 tablet 2 01/16/2020 Active tabletIndications: mouth 2 (two) Generalized anxiety times daily as disorder needed (anxiety). proMETHazine 12.5 mg Take 1 tablet by 9 tablet 0 01/26/2020 Active tabletIndications: mouth every 4 History of abdominal (four) hours as hernia, Chronic needed for abdominal pain Nausea and Vomiting (N/V). SERTraline 100 mg Take 2 tablets 60 tablet 3 03/03/2020 Active tabletIndications: Mild by mouth daily. depressed bipolar II disorder mirtazapine (REMERON) Take half a tab 30 tablet 2 03/03/2020 Active 15 mg at bedtime. tabletIndications: Insomnia, unspecified type busPIRone 10 mg Take 2 tablets 180 tablet 2 03/03/2020 Active tabletIndications: by mouth in the Generalized anxiety morning, 1 disorder tablet at night. 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 Cancer Mother leukemia Relation Name Status Comments Father stroke or ME Father Father Father Mother Mother Social History [...] 03/03/2020 8:05 AM CDT Plan of Treatment Date Type Specialty Care Team Description 03/31/2020 Office Visit Infectious Disease [place] PA [address] [place], [place] [address] [phone] Health Maintenance Due Date Last Done Comments [...] , SERIES 10/04/2001 Implants Implanted Type Area Cement Breaker Device Shelf Model / Identifier Expiration Serial / Lot Date Central Screw SHOULDER Left: Biomet 03/23/2024 [id number] / Implanted: Qty: 1 on 02/17/2015 by Roland Dixon MD at [facility] Shoulder 3 [id number] / [id number] Mini Humeral Stem SHOULDER Left: Biomet 07/31/2024 1 [id number] / Implanted: Qty: 1 on 02/17/2015 by Roland Dixon MD at [facility] Shoulder 4 [id number] / [id number] Fixed Locking Screw SHOULDER Left: Biomet [id number] / Implanted: Qty: 1 on 02/17/2015 by Roland Dixon MD at [facility] Shoulder [id number] / [id number] Glenosphere SHOULDER Left: Biomet 12/05/2024 [id number] / Implanted: Qty: 1 on 02/17/2015 by Roland Dixon MD at [facility] Shoulder [id number] / [id number] Fixed Locking Screw SHOULDER Left: Biomet 12/30/2024 [id number] / Implanted: Qty: 1 on 02/17/2015 by Roland Dixon MD at [facility] Shoulder 0 [id number] / [id number] Fixed Locking Screw SHOULDER Left: [employer]omet 12/31/2024 [id number] / Implanted: Qty: 1 on 02/17/2015 by Roland Dixon MD at [facility] Shoulder 0 [id number] / [id number] Humeral Tray With Locking Ring SHOULDER Left: Biomet 12/16/2024 [id number] / Implanted: Qty: 1 on 02/17/2015 by Roland Dixon MD at [facility] Shoulder [id number] / [id number] Glensphere Mini Baseplate SHOULDER Left: Biomet 01/21 [id number] / Implanted: Qty: 1 on 02/17/2015 by Roland Dixon MD at [facility] Shoulder [id number] / [id number] Humeral Bearing SHOULDER Left: Biomet 12/12/2019 XL- [id number] / Implanted: Qty: 1 on 02/17/2015 by Roland Dixon MD at [facility] Shoulder 5 [id number] / [id number] Fixed Locking Scew SHOULDER Left: [employer]omet 12/11/2024 [id number] / Implanted: Qty: 1 on 02/17/2015 by Roland Dixon MD at [facility] Shoulder [id number] / [id number] Procedures Procedure Name Priority Date/Time Associated Comments [...] 10:28 Abdominal pain , Results for this (90512) (ALB,T.PRO,BILI AM CDT unspecified proc edure are [...] of the pelvis was excluded in the [id number]. 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 [...] of the pelvis was excluded in the [id number]-[id number]. 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 [...] Sig nature WBC 6.30 4.30 - 11.10 [facility] 10*3/L [facility] RBC 4.01 3.93 - 5.25 [facility] 10*6/L [facility] HGB 10.6 (L) 11.6 - 15.0 [facility] g/dL [facility] HCT 35.3 (L) 35.7 - 45.2 % [facility] MCV 88.0 80.6 - 95.5 fL [facility] MCH 26.4 25.9 - 32.8 pg [facility] MCHC 30.0 (L) 31.6 - 35.1 [facility] g/dL [facility] RDW-SD 52.6 (H) 39.0 - 49.9 fL [facility] RDW-CV 16.2 (H) 12.0 - 15.5 % [facility] PLT 192 166 - 358 [facility] 10*3/L [facility] MPV 9.5 9.5 - 12.9 fL [facility] NRBC/100 WBC 0.0 0.0 - 10.0 /100 [facility] WBCs [facility] NRBC x10^3 <0.01 10*3/L [facility] GRAN MAT (NEUT) % 66.9 % [facility] IMM GRAN % 0.60 % [facility] LYMPH % 20.0 % [facility] MONO % 11.4 % [facility] EOS % 0.8 % [facility] BASO % 0.3 % [facility] GRAN MAT x10^3(ANC) 4.21 1.88 - 7.09 [facility] 10*3/uL [facility] IMM GRAN x10^3 0.04 0.00 - 0.06 [facility] 10*3/uL [facility] LYMPH x10^3 1.26 (L) 1.32 - 3.29 [facility] 10*3/uL [facility] MONO x10^3 0.72 0.33 - 0.92 [facility] 10*3/uL [facility] EOS x10^3 0.05 0.03 - 0.39 [facility] 10*3/uL [facility] BASO x10^3 <0.03 0.01 - 0.07 [facility] 10*3/uL [facility] Specimen Blood - VENOUS Performing Organization Address City/State/Zipcode Phone Number [facility] CLIA: [id number] [place] [address] Basic Metabolic Panel (NA, K, CL, CO2, GLUCOSE, BUN, CREATININE, CA) (01/26/2020 10:28 AM CDT) Pathologist Sig nature NA 139 135 - 145 [facility] mmol/L [facility] K 3.4 (L) 3.5 - 5.0 [facility] mmol/L [facility] CL 103 98 - 108 mmol/L [facility] CO2 TOTAL 28 23 - 31 mmol/L [facility] AGAP 8 2 - 16 [facility] BUN 24 (H) 7 - 23 mg/dL [facility] GLUCOSE 98 70 - 110 mg/dL [facility] CREATININE 0.97 0.50 - 1.04 [facility] mg/dL [facility] CALCIUM 8.3 (L) 8.6 - 10.6 [facility] mg/dL HOSPITAL LAB[facility]ORY eGFR Calculation 57.8 mL/min/1.73m2 [facility] ([facility] [place]) eGFR Calculation 70.1 mL/min/1.73m2 [facility] () [facility] Specimen Blood - VENOUS Narrative Performed At Association of Glomerular Filtration Rate (GFR) [facility] and Staging of Kidney Disease* [...] tests). Performing Organization Address City/State/Zipcode Phone Number [facility] CLIA: [id number] [place] [address] Hepatic Function Panel (ALB, T.PRO, BILI T, BU/BC, ALT, AST, ALK PHOS) (01/26/2020 10:28 AM CDT) Pathologist Sig nature TOTAL BILI 0.4 0.1 - 1.1 mg/dL [facility] BILI UNCON 0.4 0.1 - 1.1 mg/dL [facility] BILI CONJ 0.0 0.0 - 0.3 mg/dL [facility] T PROTEIN 6.9 6.3 - 8.2 g/dL [facility] ALBUMIN 3.9 3.5 - 5.0 g/dL [facility] ALK PHOS 79 34 - 122 U/L [facility] ALTv 31 5 - 35 U/L [facility] AST(SGOT) 34 13 - 40 U/L [facility] Specimen Blood - VENOUS Performing Organization Address City/State/Zipcode Phone Number [facility] CLIA: [id number] [place] [address] Lipase Serum (01/26/2020 10:28 AM CDT) Pathologist Sig nature LIPASE 109 0 - 220 U/L [facility] Specimen Blood - VENOUS Performing Organization Address City/State/Zipcode Phone Number [facility] CLIA: [id number] [place] [address] NOTICE OF PRIVACY PRACTICES (01/26/2020 9:50 AM CDT) Specimen Performing Organization Address City/State/Zipcode Phone Number HIM CONSENT/REFUSAL FOR DIAGNOSIS AND TREATMENT (01/26/2020 9:49 AM CDT) Specimen Performing Organization Address City/[facility] [[email or web address] Phone Number HIM EMERGENCY SERVICES AGREEMENTS AND AUTHORIZATIONS (01/26/2020 12:01 AM CDT) Specimen Performing Organization Address City/State/Zipcode Phone Number HIM from Last 3 Months Insurance Payer Benefit Plan / Subscriber ID Effective Phone Address T ype Group Dates [facility] [id number] 2019-Pre Medicar e Adv HEALTHCARE - HEALTHCARE sent HMO MANAGED DUAL COMPLETE MEDICARE HMO [employer] [id number] 2019-Pre [address] Beh avioral [facility] sent [id number] [place] [address] [facility] MEDICAID OF [id number] 2019-Pre [phone] Medic aid [place] sent [id number] [place] [address] [facility] Self 1955 [phone] [place] [address] Advance Directives Type Date 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
--- NOTE | 2020-04-01 18:22 | RAD REPORT ---
EXAM DESCRIPTION: Patrick Single View04/01/2020 5:29 pm CLINICAL HISTORY: Chest pain COMPARISON: January 2020 FINDINGS: The lungs appear clear of acute infiltrate. The heart is mildly enlarged IMPRESSION: No acute abnormalities displayed
[2020-04-01] MEDS ORDERED: ASPIRIN 81 MG CHEWABLE TABLET ONE (19:16)
[2020-04-01] MEDS ORDERED: ONDANSETRON 4 MG/2 ML VIAL ONE (19:17)
[2020-04-01] MEDS ORDERED: MORPHINE 4 MG/ML SYR ONE (19:17)
[2020-04-01] MEDS ORDERED: FAMOTIDINE 20 MG/2 ML VIAL IV ONE (19:17)
--- NOTE | 2020-04-01 19:19 | EDPHYS ---
Physician Documentation [facility] Name: Marjan Fleming Age: 65 yrs Sex: Female : 1955 Arrival Date: 04/01/2020 Time: 15:56 Bed 7 Private MD: SHEELA Physician Justus Kolb HPI: 04/01 18:28 This 65 yrs old Female presents to ER via Ambulatory with complaints of Chest thomas Pain. 18:28 The patient or guardian reports chest pain that is located primarily in the anterior thomas chest wall, right. Onset: 3 day(s) ago. The pain does not radiate. Associated signs and symptoms: The patient has no apparent associated signs or symptoms. The chest pain is described as aching, a pressure. Duration: The patient or guardian reports a single episode, that is still ongoing. Modifying factors: The symptoms are alleviated by nothing. remaining still, the symptoms are aggravated by activity, breathing, deep breath, movement, palpation of area. Severity of pain: At its worst the pain was moderate in the emergency department the pain is unchanged. Historical: - Allergies: 16:04 Bactrim DS; ca1 16:04 metoclopramide HCl; ca1 16:04 Stadol; ca1 - Home Meds: 16:04 BuSpar 10 mg BID Oral [Active]; Descovy 200-25 mg Oral tab 1 tab once daily [Active]; ca1 Hydralazine Oral [Active]; lisinopril 40 mg Oral tab 1 tab twice a day [Active]; Metformin Oral [Active]; metoprolol tartrate 100 mg Oral tab 1 tab 2 times per day [Active]; Norvasc Oral [Active]; raltegravir Oral 1 tab 2 times per day [Active]; sertraline Oral [Active]; - PMHx: 16:04 Anxiety; Atrial Fib; Bipolar disorder; Chronic pain; COPD; esophageal varices; ca1 Hepatitis; HIV; Hypertension; Migraines; Panic Attacks; - PSHx: 16:04 Appendectomy; Cholecystectomy; ca1 - Immunization history:: Adult Immunizations up to date, Flu vaccine is up to date. - Social history:: Smoking status: Patient reports the use of cigarette tobacco products, denies chronic smoking, but will smoke occasionally. - Family history:: not pertinent. ROS: 18:28 Constitutional: Negative for fever, chills, and weight loss, Eyes: Negative for injury, thomas pain, redness, and discharge, ENT: Negative for injury, pain, and discharge, Neck: Negative for injury, pain, and swelling, Respiratory: Negative for shortness of breath, cough, wheezing, and pleuritic chest pain, Abdomen/GI: Negative for abdominal pain, nausea, vomiting, diarrhea, and constipation, Back: Negative for injury and pain, : Negative for injury, bleeding, discharge, and swelling, MS/Extremity: Negative for injury and deformity, Skin: Negative for injury, rash, and discoloration, Neuro: Negative for headache, weakness, numbness, tingling, and seizure, Psych: Negative for depression, anxiety, suicide ideation, homicidal ideation, and hallucinations, Allergy/Immunology: Negative for hives, rash, and allergies, Endocrine: Negative for neck swelling, polydipsia, polyuria, polyphagia, and marked weight changes, Hematologic/Lymphatic: Negative for swollen nodes, abnormal bleeding, and unusual bruising. 18:28 Cardiovascular: Positive for chest pain. Exam: 18:28 Constitutional: This is a well developed, well nourished patient who is awake, alert, thomas and in no acute distress. Head/Face: Normocephalic, atraumatic. Eyes: Pupils equal round and reactive to light, extra-ocular motions intact. Lids and lashes normal. Conjunctiva and sclera are non-icteric and not injected. Cornea within normal limits. Periorbital areas with no swelling, redness, or edema. ENT: Nares patent. No nasal discharge, no septal abnormalities noted. Tympanic membranes are normal and external auditory canals are clear. Oropharynx with no redness, swelling, or masses, exudates, or evidence of obstruction, uvula midline. Mucous membranes moist. Neck: Trachea midline, no thyromegaly or masses palpated, and no cervical lymphadenopathy. Supple, full range of motion without nuchal rigidity, or vertebral point tenderness. No Meningismus. Cardiovascular: Regular rate and rhythm with a normal S1 and S2. No gallops, murmurs, or rubs. Normal PMI, no JVD. No pulse deficits. Respiratory: Lungs have equal breath sounds bilaterally, clear to auscultation and percussion. No rales, rhonchi or wheezes noted. No increased work of breathing, no retractions or nasal flaring. Abdomen/GI: Soft, non-tender, with normal bowel sounds. No distension or tympany. No guarding or rebound. No evidence of tenderness throughout. Back: No spinal tenderness. No costovertebral tenderness. Full range of motion. Skin: Warm, dry with normal turgor. Normal color with no rashes, no lesions, and no evidence of cellulitis. MS/ Extremity: Pulses equal, no cyanosis. Neurovascular intact. Full, normal range of motion. Neuro: Awake and alert, GCS 15, oriented to person, place, time, and situation. Cranial nerves II-XII grossly intact. Motor strength 5/5 in all extremities. Sensory grossly intact. Cerebellar exam normal. Normal gait. Psych: Awake, alert, with orientation to person, place and time. Behavior, mood, and affect are within normal limits. 18:28 Chest/axilla: Inspection: normal, Palpation: tenderness, that is mild, of the anterior aspect of right upper chest, anterior aspect of left upper chest, right breast and left breast. 18:28 Cardiovascular: Rate: normal, Rhythm: regular, Pulses: Pulses are 4+ in bilateral radial, brachial, femoral, popliteal, posterior tibial and and dorsalis pedis arteries.. Heart sounds: normal, Edema: is not appreciated, JVD: is not appreciated. 18:28 Musculoskeletal/extremity: Circulation is intact in all extremities. Sensation intact. Compartment Syndrome exam of affected extremity: is normal. DVT Exam: No signs of deep vein thrombosis. no pain, no swelling, no tenderness, negative Homans' sign noted on exam, no appreciated bluish discoloration, no erythema, no increased warmth. 18:39 ECG was reviewed by the Attending Physician. thomas Vital Signs: 15:59 BP 179 / 87; Pulse 66; Resp 20; Temp 97(TE); Pulse Ox 98% on R/A; Weight 97.52 kg (R); ca1 Height 5 ft. 4 in. (162.56 cm) (R); Pain 10/10; 20:00 BP 150 / 78; Pulse 69; Resp 19; Temp 97.5; Pulse Ox 99% 2 lpm ; rr5 20:58 BP 111 / 82; Pulse 63; Resp 19; Temp 98; Pulse Ox 99% on 2 lpm NC; rr5 15:59 Body Mass Index 36.90 (97.52 kg, 162.56 cm) ca1 MDM: 17:42 Patient medically screened. thomas 18:32 Differential diagnosis: abnormal EKG, acute myocardial infarction, coronary artery thomas disease chest wall pain, esophagitis, gastritis, hiatal hernia, myocarditis, pulmonary embolus, stable angina, unstable angina. HEART Score: History: Slightly Suspicious (0), ECG: Normal (0), Age: > 45 and < 65 years (1), Risk Factors: > or = 3 Risk factors for atherosclerotic disease (2), [Hypercholesterolemia] [Hypertension] [+ Family HX] [Obesity] Troponin: < or = 1 x Normal Limit (0). The patient was given aspirin in the Emergency Department. The patient's deep vein thrombosis risk score was calculated as follows: Total Score: 0. This patient was found to be at low risk for a deep vein thrombosis by using the Well's assessment criteria. The patient's pulmonary embolism risk score was calculated as follows: Total Score: 0-2 points. This patient was found to be at low risk for a pulmonary embolism by using the Well's assessment criteria. MONI Risk Score: 1 - Three or more CAD risk factors, TOTAL SCORE = 1. Data reviewed: vital signs, nurses notes, lab test result(s), EKG, radiologic studies. Data interpreted: health nurse: rate is 66 beats/min, rhythm is regular, Pulse oximetry: on room air is 98 %. Test interpretation: by ED physician or midlevel provider: ECG, plain radiologic studies. Counseling: I had a detailed discussion with the patient and/or guardian regarding: the historical points, exam findings, and any diagnostic results supporting the discharge/admit diagnosis, lab results, radiology results, the need for further work-up and treatment in the hospital. 19:33 ED course: patient will need VQ/scan in the am,r/r cardiacs, obs to [facility]. thomas 04/01 16:15 Order name: COVID-19 ca1 04/01 17:42 Order name: Basic Metabolic Panel 04/01 17:42 Order name: CBC with Diff; Complete Time: 19:32 thomas 04/01 17:42 Order name: LFT's 04/01 17:42 Order name: Magnesium thomas 04/01 17:42 Order name: NT PRO-BNP 04/01 16:15 Order name: Chest Single View XRAY; Complete Time: 19:32 [facility] 04/01 17:42 Order name: PT-INR; Complete Time: 19:37 [facility] 04/01 17:42 Order name: Troponin (emerg Dept Use Only) [facility] 04/01 18:25 Order name: D-Dimer; Complete Time: 19:35 [facility] 04/01 16:15 Order name: EKG; Complete Time: 16:16 [facility] 04/01 16:15 Order name: EKG - Nurse/Tech; Complete Time: 16:15 [facility] 04/01 17:42 Order name: Cardiac monitoring; Complete Time: 19:28 [facility] 04/01 17:42 Order name: IV Saline Lock; Complete Time: 19:28 [facility] 04/01 17:42 Order name: Labs collected and sent; Complete Time: 19:28 [facility] 04/01 17:42 Order name: O2 Per Protocol; Complete Time: 19:28 [facility] 04/01 17:42 Order name: O2 Sat Monitoring; Complete Time: 19:28 [facility] EC:39 Rate is 66 beats/min. Rhythm is regular. QRS [place] is Normal. MN interval is normal. QRS thomas interval is normal. QT interval is normal. No Q waves. T waves are Normal. No ST changes noted. Clinical impression: NSR w/ Non-specific ST/T Changes and No evidence of ischemia. Interpreted by me. Reviewed by me. Administered Medications: 19:00 Drug: Pepcid 20 mg {Note: right foot.} Route: IVP; Site: Other; rr5 20:00 Follow up: Response: No adverse reaction rr5 19:02 Drug: Zofran (Ondansetron) 4 mg {Note: right foot.} Route: IVP; Site: Other; rr5 20:05 Follow up: Response: No adverse reaction rr5 19:06 Drug: morphine 4 mg {Note: right foot rass 0.} Route: IVP; Site: Other; rr5 20:06 Follow up: Response: No adverse reaction; RASS: Alert and Calm (0) rr5 19:12 Drug: Aspirin Chewable Tablet 162 mg Route: PO; rr5 20:01 Follow up: Response: No adverse reaction rr5 20:00 Drug: Lovenox 90 mg Route: Sub-Q; Site: right lower abdomen; rr5 21:00 Follow up: Response: No adverse reaction rr5 Disposition: 04/01/20 19:18 Hospitalization ordered by Prince Maxine for Observation. Preliminary diagnosis are Chest pain, unspecified, Essential (primary) hypertension. - Bed requested for Telemetry/MedSurg (observation). - Status is Observation. rr5 - Condition is Fair. - Problem is new. - Symptoms have improved. Signatures: Dispatcher [employer] EDCT Mary Hernandez RN RN dw Justus Kolb MD MD cha Roque, Raymond, RN RN rr5 Lucrecia Gallardo RN RN ca1 Corrections: (The following items were deleted from the chart) 19:36 19:22 CORONAVIRUS+MR.LAB.BRZ ordered. [facility] EDCT 19:38 19:18 Hospitalization Ordered by Prince Maxine JENKINS for Observation. Preliminary dw diagnosis is Chest pain, unspecified; Essential (primary) hypertension. Bed requested for Telemetry/MedSurg (observation). Status is Observation. Condition is Fair. Problem is new. Symptoms have improved. thomas 21:21 19:38 04/01/2020 19:18 Hospitalization Ordered by Prince Maxine JENKINS for Observation. rr5 Preliminary diagnosis is Chest pain, unspecified; Essential (primary) hypertension. Bed requested for Telemetry/MedSurg (observation). Status is Observation. Condition is Fair. Problem is new. Symptoms have improved. dw
--- NOTE | 2020-04-01 19:19 | ER ---
Nurse's Notes [facility] Name: Marjan Fleming Age: 65 yrs Sex: Female : 1955 Arrival Date: 04/01/2020 Time: 15:56 Bed 7 Private MD: Diagnosis: Chest pain, unspecified;Essential (primary) hypertension Presentation: 04/01 15:59 Chief complaint: Patient states: Chest pain on the R side x 3 days, constant, painscale ca1 03/01, radiating to the L side of chest. States, "pain like I can hardly catch my breath". Denies cough. Reports SOB. Denies injury. Coronavirus screen: Client denies travel out of the [place] in the last 14 days. shortness of breath, Client presents with at least one sign or symptom that may indicate coronavirus-19. Standard/surgical mask placed on the client. Provider contacted for isolation considerations. The client reports previous COVID testing was negative. Date of collection: February 2020. Ebola Screen: Patient negative for fever greater than or equal to 101.5 degrees Fahrenheit, and additional compatible Ebola Virus Disease symptoms Patient denies exposure to infectious person. Patient denies travel to an Ebola-affected area in the 21 days before illness onset. No symptoms or risks identified at this time. Initial Sepsis Screen: Does the patient meet any 2 criteria? No. Patient's initial sepsis screen is negative. Does the patient have a suspected source of infection? No. Patient's initial sepsis screen is negative. Risk Assessment: Do you want to hurt yourself or someone else? Patient reports no desire to harm self or others. Onset of symptoms was April 01, 2020. 15:59 Method Of Arrival: Ambulatory ca1 15:59 Acuity: BLAYNE 2 ca1 Historical: - Allergies: 16:04 Bactrim DS; ca1 16:04 metoclopramide HCl; ca1 16:04 Stadol; ca1 - Home Meds: 16:04 BuSpar 10 mg BID Oral [Active]; Descovy 200-25 mg Oral tab 1 tab once daily [Active]; ca1 Hydralazine Oral [Active]; lisinopril 40 mg Oral tab 1 tab twice a day [Active]; Metformin Oral [Active]; metoprolol tartrate 100 mg Oral tab 1 tab 2 times per day [Active]; Norvasc Oral [Active]; raltegravir Oral 1 tab 2 times per day [Active]; sertraline Oral [Active]; - PMHx: 16:04 Anxiety; Atrial Fib; Bipolar disorder; Chronic pain; COPD; esophageal varices; ca1 Hepatitis; HIV; Hypertension; Migraines; Panic Attacks; - PSHx: 16:04 Appendectomy; Cholecystectomy; ca1 - Immunization history:: Adult Immunizations up to date, Flu vaccine is up to date. - Social history:: Smoking status: Patient reports the use of cigarette tobacco products, denies chronic smoking, but will smoke occasionally. - Family history:: not pertinent. Screenin:57 Abuse screen: Denies threats or abuse. Denies injuries from another. Nutritional zb screening: No deficits noted. Tuberculosis screening: No symptoms or risk factors identified. Fall Risk No fall in past 12 months (0 pts). No secondary diagnosis (0 pts). IV access (20 points). Ambulatory Aid- None/Bed Rest/Nurse Assist (0 pts). Gait- Normal/Bed Rest/Wheelchair (0 pts) Mental Status- Oriented to own ability (0 pts). Total Hauser Fall Scale indicates No Risk (0-24 pts). Assessment: 18:21 General: Appears in no apparent distress. comfortable, obese, Behavior is calm, zb cooperative, appropriate for age, Reports chills for fever for feeling ill for 2-3 days. Pain: Complains of pain in anterior aspect of right upper chest and mid-sternal area Pain does not radiate. Quality of pain is described as pressure, Pain began 2-3 days ago. Cardiovascular: Reports chest pain, nausea, shortness of breath. Respiratory: Reports shortness of breath at rest Airway is patent Trachea midline Respiratory effort is even, unlabored, Respiratory pattern is regular. GI: Reports diarrhea, nausea. : No signs and/or symptoms were reported regarding the genitourinary system. EENT: No signs and/or symptoms were reported regarding the EENT system. 19:00 General: Appears in no apparent distress. comfortable, Behavior is calm, cooperative, rr5 appropriate for age. 19:00 Pain: Complains of pain in chest. Neuro: Level of Consciousness is awake, alert, obeys rr5 commands, Oriented to person, place, time. Cardiovascular: Capillary refill < 3 seconds Patient's skin is warm and dry. Respiratory: Airway is patent Respiratory effort is even, unlabored, Respiratory pattern is regular, symmetrical. GI: No signs and/or symptoms were reported involving the gastrointestinal system. : No signs and/or symptoms were reported regarding the genitourinary system. Derm: Skin is intact, is healthy with good turgor, Skin is pink, warm \\T\\ dry. Musculoskeletal: Circulation, motion, and sensation intact. Capillary refill < 3 seconds. 19:35 Reassessment: Patient appears in no apparent distress at this time. pt requesting a sg coke at this time, notified, orders to hold PO at this time. Lab notified of order for GREGORY Sernaha states a swab was received earlier in the day. notified. 20:36 Reassessment: Patient is alert/active/playful, equal unlabored respirations, skin rr5 warm/dry/pink. complaint of chest pain pain score 10/10 hospitalist informed with telephone order to carry out the nitroglycerin pill ordered in [employer]. patient refused to take the nitro glycerin.. 21:20 Reassessment: Patient appears in no apparent distress at this time. Patient is alert, rr5 oriented x 3, equal unlabored respirations, skin warm/dry/pink. transferred to medical surgical floor, awake alert hemodynamically stable. Vital Signs: 15:59 BP 179 / 87; Pulse 66; Resp 20; Temp 97(TE); Pulse Ox 98% on R/A; Weight 97.52 kg (R); ca1 Height 5 ft. 4 in. (162.56 cm) (R); Pain 10/10; 20:00 BP 150 / 78; Pulse 69; Resp 19; Temp 97.5; Pulse Ox 99% 2 lpm ; rr5 20:58 BP 111 / 82; Pulse 63; Resp 19; Temp 98; Pulse Ox 99% on 2 lpm NC; rr5 15:59 Body Mass Index 36.90 (97.52 kg, 162.56 cm) ca1 ED Course: 15:56 Patient arrived in ED. ds1 16:02 Triage completed. ca1 16:04 Arm band placed on right wrist. ca1 16:15 EKG completed in triage. Results shown to MD. ca1 16:15 Covid19 swab done. ca1 17:17 COVID-19 Sent. aa5 17:30 Chest Single View XRAY In Process Unspecified. EDMS 17:42 Justus Kolb MD is Attending Physician. thomas 18:00 Patient has correct armband on for positive identification. Placed in gown. Bed in low zb position. Call light in reach. Side rails up X 1. telemetry monitor on. Pulse ox on. NIBP on. 18:05 Chaparrita Mendez RN is Primary Nurse. zb 19:00 Inserted saline lock: 24 gauge in right ,using aseptic technique. foot inserted by rr5 cathleen RAMIREZ. 19:17 Prince Goodman MD is Hospitalizing Provider. thomas 19:29 Oxygen administration via nasal cannula \\T\\ 2L/min. rr5 20:56 No provider procedures requiring assistance completed. Patient admitted, IV remains in rr5 place. intact, No redness/swelling at site. Administered Medications: 19:00 Drug: Pepcid 20 mg {Note: right foot.} Route: IVP; Site: Other; rr5 20:00 Follow up: Response: No adverse reaction rr5 19:02 Drug: Zofran (Ondansetron) 4 mg {Note: right foot.} Route: IVP; Site: Other; rr5 20:05 Follow up: Response: No adverse reaction rr5 19:06 Drug: morphine 4 mg {Note: right foot rass 0.} Route: IVP; Site: Other; rr5 20:06 Follow up: Response: No adverse reaction; RASS: Alert and Calm (0) rr5 19:12 Drug: Aspirin Chewable Tablet 162 mg Route: PO; rr5 20:01 Follow up: Response: No adverse reaction rr5 20:00 Drug: Lovenox 90 mg Route: Sub-Q; Site: right lower abdomen; rr5 21:00 Follow up: Response: No adverse reaction rr5 Outcome: 19:18 Decision to Hospitalize by Provider. thomas 20:58 Admitted to Med/surg accompanied by tech, via stretcher, room 209, with chart, Report rr5 called to carpr 20:58 Condition: stable 20:58 Instructed on the need for admit. 21:21 Patient left the ED. rr5 Signatures: Dispatcher [employer] EDMS Samson Recinos RN RN sg Anderson, Corey, MD MD cha Sanford, Demi ds1 Lindsay Schulz RN RN aa5 Goldy Agee, RN RN rr5 Lucrecia Gallardo, RN RN ca1 Chaparrita Mendez, RN RN zb Corrections: (The following items were deleted from the chart) 04/02 01:48 04/01 20:00 BP 150 / 78; Pulse 69bpm; Resp 19bpm; Pulse Ox 99%; Temp 97.5F; rr5 rr5 04/02 01:48 04/01 20:58 BP 111 / 82; Pulse 63bpm; Resp 19bpm; Pulse Ox 99%; Temp 98F; rr5 rr5
[2020-04-01 19:26] LABS: Absolute Lymphocytes (CBC) 1.4 K/uL (0.7-4.9); Basophils % 0.8 % (0-1.3); Hematocrit 35.5 % (36.0-45.0); MPV 7.8 fL (7.6-11.3)
[2020-04-01 19:35] LABS: Protime INR 0.99
[2020-04-01 19:44] LABS: ALT/SGPT 21 U/L (12-78); AST/SGOT 23 U/L (15-37); Albumin 3.3 g/dL (3.4-5.0); Alkaline Phosphatase 81 U/L (45-117); BUN Blood Urea Nitrogen 20 mg/dL (7-18); Bicarbonate 29 mmol/L (21-32); Bilirubin Direct < 0.1 mg/dL (0-0.2); Bilirubin Total 0.3 mg/dL (0.2-1.0); Glucose Level 102 mg/dL (74-106); Magnesium 2.3 mg/dL (1.8-2.4); NT PRO-BNP 858 pg/mL (<125); Potassium 3.5 mmol/L (3.5-5.1); Protein, Total 7.5 g/dL (6.4-8.2); Sodium Level 143 mmol/L (136-145); Troponin (Emerg Dept Use Only) < 0.02 ng/mL (0.0-0.045)
[2020-04-01] MEDS ORDERED: ENOXAPARIN 100 MG/ML SYR SQ ONE (19:46)
--- NOTE | 2020-04-01 19:58 | P.HP ---
Certification for Inpatient Patient admitted to: Observation With expected LOS: <2 Midnights Practitioner: I am a practitioner with admitting privileges, knowledge of patient current condition, hospital course, and medical plan of care. Services: Services provided to patient in accordance with Admission requirements found in Title 42 Section 412.3 of the Code of Federal Regulations Patient History Date of Service: 04/01/20 Reason for admission: Chest pain History of Present Illness: Patient is 65-year-old female with morbid obesity, hypertension, atrial fibrillation, compensated hep C cirrhosis and history of IV drug abuse and tobacco smoking. She presents to the ER complaining of 3-day history of chest pain, which has been progressively worsening. She is describing a right- sided chest pain radiating to her left side, and her neck. Other associated symptoms include left upper extremity numbness and tingling. She has also been experiencing shortness of breath, finding it difficult to catch her breath. Rest of ROS include lack of energy and generalized malaise. She denies any fever, denies any cough. Of note, patient also has a history of large hiatal hernia but feels these current symptoms are different compared to those she gets from hiatal hernia and gastritis flare. Patient stated she also has a history of COPD. She was hypertensive upon arrival with SBP in the 170s. Her EKG showed normal sinus rhythm with evidence of LVH. Her 1st troponin was negative. In addition, she has an elevated D-dimer. She could not undergo CTA chest due to difficult IV access. Allergies fentanyl Allergy (Severe, Verified 02/03/20 00:08) Hives butorphanol tartrate [From Stadol] Allergy (Verified 02/03/20 00:08) confusion metoclopramide HCl [From Reglan] Allergy (Verified 02/03/20 00:08) Shortness of breath sulfamethoxazole [From Bactrim] Allergy (Verified 02/03/20 00:08) Hives/Rash trimethoprim [From Bactrim] Allergy (Verified 02/03/20 00:08) Hives/Rash Bactrim DS Allergy (Intermediate, Uncoded 02/03/20 00:08) Nausea/Vomiting Home Medications: Raltegravir Potassium [Isentress] 400 mg PO BID 02/28/12 Lorazepam [Ativan] 2 mg PO BID* PRN 04/02/12 Sertraline [Zoloft*] 200 mg PO DAILY 09/15/12 Emtricitabine/Tenofov Alafenam [Descovy 200-25 mg Tablet] 1 tab PO BEDTIME 10/05/16 Esomeprazole Mag Trihydrate [Nexium] 40 mg PO BID 06/18/19 Triamterene/Hydrochlorothiazid [Triamterene-Hctz 37.5-25 mg Cp] 1 each PO DAILY 06/18/19 Metoprolol Tartrate 100 mg PO BID #60 tablet 02/03/20 Hydralazine HCl 50 mg PO BEDTIME 04/01/20 - Past Medical/Surgical History Diabetic: No -: HIV diag ~ [address] Yohan Cardenas in [place] -: . -: Bipolar disorder Dr Krause in [place] -: Hypertension -: COPD -: Tobacco abuse -: Alcohol abuse -: Anemia likely of chronic disease -: constrictor of urethia -: Appendectomy -: Cholecystectomy -: left shoulder rotated cuff -: Right foot repair -: Right shoulder replacement -: left shoulder rotated cuff Psychosocial/ Personal History: She lives at home. She is not . - Family History Father -: Kidney disease Mother -: Other (see notes) Notes: Epilepsy, chronic pain - Social History Alcohol use: No CD- Drugs: No Caffeine use: Yes Physical Examination - Physical Exam General: Cooperative, Mild distress, Obese HEENT: Atraumatic, Normocephalic, EOMI Neck: Supple Respiratory: Clear to auscultation bilaterally, Normal air movement Cardiovascular: No edema, Normal pulses, Regular rate/rhythm, Normal S1 S2 Musculoskeletal: No clubbing, No swelling, No contractures, No erythema, No tenderness, No warmth Neurological: Normal speech, Sensation intact, Normal affect - Studies Laboratory Data (last 24 hrs) 04/01/20 19:16: PT 11.7, INR 0.99 04/01/20 19:16: WBC 6.0, Hgb 11.6 L, Hct 35.5 L, Plt Count 199 04/01/20 19:16: Sodium 143, Potassium 3.5, BUN 20 H, Creatinine 0.81, Glucose 102, Magnesium 2.3, Total Bilirubin 0.3, AST 23, ALT 21, Alkaline Phosphatase 81 Assessment and Plan - Problems (Diagnosis) (1) Chest pain Current Visit: Yes Status: Acute (2) COPD (chronic obstructive pulmonary disease) Onset Date: 05/26/15 Current Visit: No Status: Chronic Qualifiers: (3) HIV positive Onset Date: 10/23/14 Current Visit: No Status: Chronic (4) Hepatitis C Onset Date: 10/06/16 Current Visit: No Status: Chronic Qualifiers: (5) Hiatal hernia with GERD Onset Date: 02/26/16 Current Visit: No Status: Chronic (6) Hypertension Onset Date: 05/26/15 Current Visit: No Status: Chronic Qualifiers: - Advance Directives Does patient have a Living Will: No Does patient have a Durable POA for Healthcare: Yes Physician Review Additional Text: Assessment 65 YEAR OLD female with morbid obesity, tobacco smoking, hx of IVDA, currently Hep C + with compensated cirrhosis, HIV, hypertension and atrial fibrillation. She presents with persistent chest pain. First trop is negative. First EKG with LVH but otherwise unremarkable. Her CXR was negative as well. Patient had elevated D-dimer levels and was given 100 mg of lovenox in the ER. Due to lack of IV access, no contrast study could be performed Chest pain Tobacco smoking HTN Atrial fibrillation Morbid obesity HIV Hep C cirrhosis Hx of IVDA PLAN: Admit under observation with telemetry Trend troponin and EKG Follow up lipid panel and HbA1c Control BP Resume home dose of metoprolol and lisinopril, and start statin and nitroglycerin 2-D ECHO and Nuclear stress test in the morning I would have prefer to obtain a CTA chest to r/o PE. I discussed with transportation supervisor, who will assist in obtaining a midline. if unsuccessful, patient may need a V/Q scan in the morning.
[2020-04-01] MEDS ORDERED: NITROGLYCERIN 0.4 MG/TAB SL ONE (20:46)
[2020-04-01] MEDS ORDERED: NITROGLYCERIN 0.4 MG/TAB SL PRN (21:31)
[2020-04-01] MEDS: METOPROLOL TAR 50 MG TAB PO SCH (22:11)
[2020-04-01] MEDS: ATORVASTATIN 80 MG TAB PO SCH (22:11)
[2020-04-01 22:31] VITALS: BMI 37.1
[2020-04-01] MEDS ORDERED: LORAZEPAM 1 MG TABLET PO PRN (22:58)
[2020-04-02] MEDS ORDERED: MORPHINE 2 MG/ML SYR IV ONE (02:54)
[2020-04-02] MEDS ORDERED: TRAMADOL HCL 50 MG TAB PO PRN (06:15)
[2020-04-02] MEDS ORDERED: LEVALBUTEROL 0.63 MG/3 ML NEB NEB PRN (06:17)
[2020-04-02] MEDS ORDERED: IPRATROPIUM BROM 0.5MG/2.5ML NEB PRN (06:17)
[2020-04-02] MEDS: predniSONE 20 MG TAB PO SCH ×2 (06:37→16:41)
[2020-04-02] MEDS: HYDROCODONE/APAP 7.5/325 MG TAB PO PRN ×2 (06:37→13:37)
--- NOTE | 2020-04-02 07:25 | EKG ---
Test Date: 2020-04-01 Test Time: 21:53:37 Dressmaker Garment Fitter: RT MEASUREMENT RESULTS: Intervals: Rate: 59 TN: 198 QRSD: 88 QT: 476 QTc: 471 [place]: P: 4 TN: 198 QRS: 0 T: 16 INTERPRETIVE STATEMENTS: Sinus bradycardia Minimal voltage criteria for LVH, may be normal variant Prolonged QT Abnormal ECG Compared to ECG 04/01/2020 16:13:34 Prolonged QT interval now present Sinus rhythm no longer present Early repolarization no longer present Electronically Signed On 04-02-20 07:24:21 FOREMAN/PROJECT MANAGER by Per Crane
--- NOTE | 2020-04-02 07:25 | EKG ---
Test Date: 2020-04-01 Test Time: 16:13:34 Scrapper: RAMSEY MEASUREMENT RESULTS: Intervals: Rate: 66 GA: 180 QRSD: 88 QT: 414 QTc: 434 [place]: P: 55 GA: 180 QRS: -3 T: -7 INTERPRETIVE STATEMENTS: Normal sinus rhythm Left ventricular hypertrophy with repolarization abnormality Abnormal ECG Compared to ECG 02/02/2020 17:14:05 Left ventricular hypertrophy now present Early repolarization now present Atrial fibrillation no longer present T-wave abnormality no longer present Prolonged QT interval no longer present Electronically Signed On 04-02-20 07:24:23 SECURITY ANALYST by Per Crane
[2020-04-02] MEDS: PANTOPRAZOLE 40MG TABLET PO SCH ×2 (07:30→16:41)
--- NOTE | 2020-04-02 08:07 | P.DS ---
Admission Date: 04/01/20 Discharge Date: 04/02/20 Primary Care Provider: Dr. Rahman; HIV Specialist Disposition: ROUTINE DISCHARGE Discharge Condition: GOOD Reason for Admission: Chest pain Consultations: None Procedures: CXR: COMPARISON: January 2020 FINDINGS: The lungs appear clear of acute infiltrate. The heart is mildly enlarged IMPRESSION: No acute abnormalities displayed ECHO: CT Chest: Cardiac Stress Test: FINDINGS: The end diastolic volume is 103 ml, the end systolic volume is 40 ml, and the ejection fraction is 62 %. End-diastolic volume is increased from the 2018 study with a similar, normal range ejection fraction. A mild decrease in activity is seen in the anterior wall left ventricle in the mid in apex portion. This stress defect does not exist on the rest sequencing. Septum, lateral and inferior osorio show no change between rest and stress imaging. IMPRESSION: Mild stress ischemic changes are seen in the anterior wall mid and apex portion. End-diastolic volume is upper normal at 103 ml, increased from 88 ml in 2018. Ejection fraction remains in normal range. Medical problem list: Brief History of Present Illness: 65-year-old female with multiple medical problems including HIV, hepatitis-C, COPD, tobacco abuse, hypertension and depression with anxiety. Patient presented with chest pain. This has occurred over the last 3 days. Some wheezing noted. Shortness of breath also noted. Patient reports that she has a large hiatal hernia. This has been evaluated. She is to have surgery in [place] in the next 2 weeks. Patient admitted for further evaluation and treatment. Hospital Course: Patient presented with chest pain and shortness of breath. Suspect this related to COPD exacerbation. Patient with history of tobacco abuse and COPD. Patient given steroid treatment along with COPD medication. Patient also with slight elevation in D-dimer. CT chest performed. Cardiac enzymes unremarkable. Blood pressures were elevated. Additional medication for blood pressure was required. Due to her risk factors, echocardiogram and cardiac stress test also performed. Chest pain has resolved. Shortness of breath improved. At discharge for her COPD the patient will continue with her COPD medication-Symbicort 2 puffs twice daily and Pro air 2 puffs 3 times a day as needed for shortness of breath. Home oxygen will be arranged at discharge. Patient currently on 3 L per nasal cannula to maintain sats above 93%. At discharge she will also continue with prednisone 20 mg 1 pill twice daily for 5 days then 1 pill once daily for 5 days. COPD education provided. Home oxygen arranged by social work to maintain sats above 93% Recommend follow up with pulmonology as an outpatient to further monitor and address. As mentioned above blood pressures were elevated upon arrival. Additional medication included lisinopril. At discharge blood pressures improved. At discharge she will continue with hydralazine 50 mg daily, Dyazide daily, metoprolol 100 mg 1 pill twice daily and lisinopril 20 mg daily. Recommend to maintain blood pressure less than 130/80. May need to hold lisinopril if blood pressure less than 110 systolic. Further adjustment can be done by her PCP. Patient with hyperlipidemia. LDL elevated at 164. It is recommended the patient be started on medication at this time. Lipitor 40 mg daily has been initiated. Recommend to recheck fasting lipid panel and CMP in 2-4 weeks to monitor her progress. Further adjustment can be done by her PCP. Patient with HIV. Patient seen by HIV specialist. At discharge she will continue with her current medications including Isentress and Descovy. Recommend further adjustment in medication by her HIV specialist. Follow up wi th her HIV specialist as directed. Patient with GERD with large hiatal hernia. As mention by patient, she is in the process to have surgery in [place] for the large hiatal hernia. This will occur in the next 2 weeks. This will be done laparoscopically. At this time she will continue with Nexium 40 mg 1 pill twice daily. Patient with depression and anxiety. At discharge she may continue with her medications including Zoloft 200 mg daily and Ativan 2 mg 1 pill twice daily. Recommend to decrease and eventually wean off Ativan in the future. This can be done with the help of her PCP. Vital Signs/Physical Exam: Temp Pulse Resp BP Pulse Ox 97.6 F 64 18 138/82 95 04/02/20 04:00 04/02/20 04:00 04/02/20 06:37 04/02/20 04:00 04/02/20 06:37 General: Alert, In no apparent distress, Oriented x3, Cooperative HEENT: Atraumatic Neck: Supple Respiratory: Expiratory wheezes (mild) Cardiovascular: Normal pulses, Regular rate/rhythm Gastrointestinal: Normal bowel sounds, Soft and benign, Non-distended, No tenderness, No masses, No rebound, No guarding Musculoskeletal: No erythema, No tenderness, No warmth Integumentary: No tenderness/swelling, No erythema, No warmth, No cyanosis Neurological: Normal speech, Normal strength at 5/5 x4 extr, Normal tone, Normal affect Laboratory Data at Discharge: WBC 6.0 K/uL (4.3-10.9) 04/01/20 19:16 Hgb 11.6 g/dL (12.0-15.0) L 04/01/20 19:16 Hct 35.5 % (36.0-45.0) L 04/01/20 19:16 Plt Count 199 K/uL (152-406) 04/01/20 19:16 PT 11.7 SECONDS (9.5-12.5) 04/01/20 19:16 INR 0.99 04/01/20 19:16 Sodium 143 mmol/L (136-145) 04/01/20 19:16 Potassium 3.5 mmol/L (3.5-5.1) 04/01/20 19:16 BUN 20 mg/dL (7-18) H 04/01/20 19:16 Creatinine 0.81 mg/dL (0.55-1.3) 04/01/20 19:16 Glucose 102 mg/dL (74-106) 04/01/20 19:16 Magnesium 2.3 mg/dL (1.8-2.4) 04/01/20 19:16 Total Bilirubin 0.3 mg/dL (0.2-1.0) 04/01/20 19:16 AST 23 U/L (15-37) 04/01/20 19:16 ALT 21 U/L (12-78) 04/01/20 19:16 Alkaline Phosphatase 81 U/L (45-117) 04/01/20 19:16 Troponin I < 0.02 ng/mL (0.0-0.045) 04/01/20 21:51 Triglycerides 136 mg/dL (<150) 04/01/20 21:51 Cholesterol 240 mg/dL (<200) H 04/01/20 21:51 HDL Cholesterol 49 mg/dL (40-60) 04/01/20 21:51 Cholesterol/HDL Ratio 4.90 04/01/20 21:51 Home Medications: Raltegravir Potassium [Isentress] 400 mg PO BID 02/28/12 Lorazepam [Ativan] 2 mg PO BID* PRN 04/02/12 Sertraline [Zoloft*] 200 mg PO DAILY 09/15/12 Emtricitabine/Tenofov Alafenam [Descovy 200-25 mg Tablet] 1 tab PO BEDTIME 10/05/16 Esomeprazole Mag Trihydrate [Nexium] 40 mg PO BID 06/18/19 Triamterene/Hydrochlorothiazid [Triamterene-Hctz 37.5-25 mg Cp] 1 each PO DAILY 06/18/19 Metoprolol Tartrate 100 mg PO BID #60 tablet 02/03/20 Hydralazine HCl 50 mg PO BEDTIME 04/01/20 Albuterol Inhaler [Ventolin Inhaler*] 2 puff IH Q6H PRN #1 hfa.aer.ad 04/02/20 Aspirin [Aspirin EC 81 MG] 81 mg PO DAILY #90 tablet. 04/02/20 Atorvastatin Calcium [Lipitor] 40 mg PO BEDTIME #30 tab 04/02/20 Budesonide/Formoterol Fumarate [Symbicort 160-4.5 Mcg Inhaler] 2 puff IH BID #1 hfa.aer.ad 04/02/20 lisinopriL [Prinivil*] 20 mg PO DAILY #30 tab 04/02/20 predniSONE [Prednisone*] 20 mg PO SEECOM #15 tab 04/02/20 New Medications: Aspirin [Aspirin EC 81 MG] 81 mg PO DAILY #90 tablet. Atorvastatin Calcium [Lipitor] 40 mg PO BEDTIME #30 tab predniSONE [Prednisone*] 20 mg PO SEECOM #15 tab lisinopriL [Prinivil*] 20 mg PO DAILY #30 tab Budesonide/Formoterol Fumarate [Symbicort 160-4.5 Mcg Inhaler] 2 puff IH BID #1 hfa.aer.ad Albuterol Inhaler [Ventolin Inhaler*] 2 puff IH Q6H PRN #1 hfa.aer.ad PRN Reason: Shortness Of Breath Patient Discharge Instructions: 1. Recommend follow up with PCP in 1 week to follow up this hospitalization. 2. Patient presented with chest pain and shortness of breath. Suspect this related to COPD exacerbation. Patient with history of tobacco abuse and COPD. Patient given steroid treatment along with COPD medication. Patient also with slight elevation in D-dimer. CT chest performed. Cardiac enzymes unremarkable. Blood pressures were elevated. Additional medication for blood pressure was required. Due to her risk factors, echocardiogram and cardiac stress test also performed. Chest pain has resolved. Shortness of breath improved. At discharge for her COPD the patient will continue with her COPD medication-Symbicort 2 puffs twice daily and Pro air 2 puffs 3 times a day as needed for shortness of breath. Home oxygen will be arranged at discharge. Patient currently on 3 L per nasal cannula to maintain sats above 93%. At discharge she will also continue with prednisone 20 mg 1 pill twice daily for 5 days then 1 pill once daily for 5 days. COPD education provided. Home oxygen arranged by social work to maintain sats above 93% Recommend follow up with pulmonology as an outpatient to further monitor and address. 3. As mentioned above blood pressures were elevated upon arrival. Additional medication included lisinopril. At discharge blood pressures improved. At discharge she will continue with hydralazine 50 mg daily, Dyazide daily, metoprolol 100 mg 1 pill twice daily and lisinopril 20 mg daily. Recommend to maintain blood pressure less than 130/80. May need to hold lisinopril if blood pressure less than 110 systolic. Further adjustment can be done by her PCP. 4. Patient with hyperlipidemia. LDL elevated at 164. It is recommended the patient be started on medication at this time. Lipitor 40 mg daily has been initiated. Recommend to recheck fasting lipid panel and CMP in 2-4 weeks to monitor her progress. Further adjustment can be done by her PCP. 5. Patient with HIV. Patient seen by HIV specialist. At discharge she will continue with her current medications including Isentress and Descovy. Recommend further adjustment in medication by her HIV specialist. Follow up with her HIV specialist as directed. 6. Patient with GERD with large hiatal hernia. As mention by patient, she is in the process to have surgery in [place] for the large hiatal hernia. This will occur in the next 2 weeks. This will be done laparoscopically. At this time she will continue with Nexium 40 mg 1 pill twice daily. 7. Patient with depression and anxiety. At discharge she may continue with her medications including Zoloft 200 mg daily and Ativan 2 mg 1 pill twice daily. Recommend to decrease and eventually wean off Ativan in the future. This can be done with the help of her PCP. Diet: AHA Activity: Ad pricila Followup: Lacey VARELALele Peterson DO [Primary Care Provider] - Time spent managing pt's care (in minutes): 55
[2020-04-02] MEDS ORDERED: REGADENOSON 0.4 MG/5 ML SYR IV ONE (08:31)
[2020-04-02] MEDS: METOPROLOL TAR 50 MG TAB PO SCH ×2 (08:40→21:04)
[2020-04-02] MEDS: RALTEGRAVIR POTASSIUM 400 MG TABLET PO SCH ×2 (09:00→21:00)
[2020-04-02] MEDS: MAXZIDE (HCTZ 25/TRIAMTERENE 37.5MG) TAB PO SCH (09:00)
[2020-04-02] MEDS ORDERED: PNEUMOCOCCAL VACCINE 0.5 ML IMVAC ONE (09:00)
[2020-04-02] MEDS: lisinopriL 20 MG TAB PO SCH (09:00)
[2020-04-02] MEDS: SERTRALINE HCL 100 MG TAB PO SCH (09:00)
[2020-04-02] MEDS ORDERED: METOPROLOL TAR 50 MG TAB PO SCH (09:00)
--- NOTE | 2020-04-02 09:21 | RAD REPORT ---
EXAM DESCRIPTION: CT - Chest For Pe Angio - 04/02/2020 9:14 am CLINICAL HISTORY: Chest pain. chest pain, Hx of Afib/COPD COMPARISON: Chest Abd Pelvis Wo Con dated 12/26/2019 TECHNIQUE: CT angiogram of the pulmonary arteries was performed with MIP. All CT scans are performed using dose optimization technique as appropriate and may include automated exposure control or mA/KV adjustment according to patient size. FINDINGS: No evidence of pulmonary thromboembolism. No acute aortic finding demonstrated. The lungs are mildly emphysematous but clear. Moderate axial hiatal hernia. Cholecystectomy clips. No significant pericardial or pleural fluid. No concerning bony finding. Bilateral renal cysts. IMPRESSION: No evidence of pulmonary thromboembolism. Mild diffuse COPD.
[2020-04-02] MEDS: DULERA 100/5 (MOMETASONE/FORMOTEROL) INHALER IH SCH ×2 (09:37→21:05)
--- NOTE | 2020-04-02 13:25 | RAD REPORT ---
EXAM DESCRIPTION: NM - Rest Stress Cardiac Imaging - 04/02/2020 1:15 pm CLINICAL HISTORY: Chest pain COMPARISON: March 2018 TECHNIQUE: The patient was administered approximately 10 mCi of Tc 99m Sestamibi prior to resting SP ECT imaging of the heart. The patient was then administered approximately 30 mCi of Tc 99m Sestamibi following exercise or pharmacologic stress. Multiplanar SPECT images were reviewed. FINDINGS: The end diastolic volume is 103 ml, the end systolic volume is 40 ml, and the ejection fra ction is 62 %. End-diastolic volume is increased from the 2018 study with a similar, normal range eje ction fraction. A mild decrease in activity is seen in the anterior wall left ventricle in the mid in apex portion. T his stress defect does not exist on the rest sequencing. Septum, lateral and inferior osorio show no c hange between rest and stress imaging. IMPRESSION: Mild stress ischemic changes are seen in the anterior wall mid and apex portion. End-diastolic volume is upper normal at 103 ml, increased from 88 ml in 2018. Ejection fraction remai ns in normal range.
--- NOTE | 2020-04-02 14:34 | P.PN ---
Subjective Date of Service: 04/02/20 Primary Care Provider: Dr. Rahman; HIV Specialist Chief Complaint: Chest pain Subjective: Other (Patient still reports some shortness of breath with exertion. Patient now with less need for oxygen.) Physical Examination - Vital Signs Temperature: 97 F Blood Pressure: 172/91 Pulse: 68 Respirations: 18 Pulse Ox (%): 95 - Physical Exam General: Alert, In no apparent distress, Oriented x3, Cooperative HEENT: Atraumatic Neck: Supple Respiratory: Expiratory wheezes Cardiovascular: Normal pulses, Regular rate/rhythm Gastrointestinal: Normal bowel sounds, Soft and benign, Non-distended, No tenderness, No masses, No rebound, No guarding Neurological: Normal speech, Normal strength at 5/5 x4 extr, Normal tone, Normal affect - Studies Laboratory Data (last 24 hrs) 04/01/20 19:16: PT 11.7, INR 0.99 04/01/20 19:16: WBC 6.0, Hgb 11.6 L, Hct 35.5 L, Plt Count 199 04/01/20 19:16: Sodium 143, Potassium 3.5, BUN 20 H, Creatinine 0.81, Glucose 102, Magnesium 2.3, Total Bilirubin 0.3, AST 23, ALT 21, Alkaline Phosphatase 81 Medications List Reviewed: Yes Assessment & Plan Discharge Plan: Home Plan to discharge in: 24 Hours Physician Review Additional Text: Impression: Chest pain with shortness of breath suspect unstable angina with abnormal cardia c stress test complicated with COPD exacerbation Hypertension Hyperlipidemia HIV GERD with hiatal hernia Depression with anxiety Plan: Chest pain with shortness of breath suspect unstable angina with abnormal cardiac stress test complicated with COPD exacerbation: Cardiac enzymes negative. Cardiac stress test showed stress-induced ischemia. Will consult c ardiology for further evaluation and treatment. Patient will need heart catheterization to further evaluate. Patient requiring less oxygen at this time. Continue prednisone and COPD medication. Patient was still reporting some shortness of breath with exertion this afternoon. Will continue to monitor closely. Anticipate heart catheterization tomorrow with possible discharge if unremarkable. Hypertension: Will adjust blood pressure medication for better control. Hyperlipidemia: Will increase Lipitor to 80 mg daily. HIV: Continue medication GERD with hiatal hernia: Continue medication. Patient has follow up with surgery in [place] for surgery of the hiatal hernia Time Spent Managing Pts Care (In Minutes): 55
[2020-04-02] MEDS ORDERED: HYDRALAZINE HCL 25 MG TABLET PO SCH (21:00)
[2020-04-02] MEDS ORDERED: EMTRICITABINE PO SCH (21:00)
[2020-04-02] MEDS ORDERED: TENOFOV ALAFENAM PO SCH (21:00)
[2020-04-02] MEDS: ATORVASTATIN 80 MG TAB PO SCH (21:05)
[2020-04-02] MEDS: HYDRALAZINE HCL 25 MG TABLET PO SCH (21:05)
[2020-04-03] MEDS: HYDRALAZINE HCL 25 MG TABLET PO SCH (05:42)
[2020-04-03] MEDS: METOPROLOL TAR 50 MG TAB PO SCH (05:43)
[2020-04-03] MEDS: lisinopriL 20 MG TAB PO SCH (07:06)
[2020-04-03] MEDS: PANTOPRAZOLE 40MG TABLET PO SCH ×2 (07:30→17:06)
[2020-04-03] MEDS ORDERED: LORAZEPAM 2 MG PO PRN (07:49)
[2020-04-03] MEDS: predniSONE 20 MG TAB PO SCH ×2 (08:00→17:06)
--- NOTE | 2020-04-03 08:53 | ECHO ---
HEIGHT: 5 ft 4 in WEIGHT: 216 lb 8 oz DATE OF STUDY: 04/02/[address]: Prince Maria Elena Goodmna MD 2-DIMENSIONAL: YES M.MODE: YES DOPPLER: YES COLOR FLOW: YES TDS: PORTABLE: DEFINITY: BUBBLE STUDY: DIAGNOSIS: ACUTE CORNARY SYNDROME CARDIAC HISTORY: CATHERIZATION: SURGERY: PROSTHETIC VALVE: PACEMAKER: MEASUREMENTS (cm) DIASTOLIC (NORMALS) SYSTOLIC (NORMALS) IVSd 1.1 (0.6-1.2) LA Diam 4.1 (1.9-4.0) LVEF 61% LVIDd 4.3 (3.5-5.7) LVIDs 2.9 (2.0-3.5) %FS 33% LVPWd 1.2 (0.6-1.2) Ao Diam (2.0-3.7) 2 DIMENSIONAL ASSESSMENT: RIGHT ATRIUM: NORMAL LEFT ATRIUM: NORMAL RIGHT VENTRICLE: NORMAL LEFT VENTRICLE: NORMAL TRICUSPID VALVE: NORMAL MITRAL VALVE: NORMAL PULMONIC VALVE: NORMAL AORTIC VALVE: NORMAL PERICARDIAL EFFUSION: NONE AORTIC ROOT: NORMAL LEFT VENTRICULAR WALL MOTION: NORMAL DOPPLER/COLOR FLOW: NORMAL COMMENTS: NORMAL 2-DIMENSIONAL ECHOCARDIOGRAM WITH DOPPLER. NO WALL MOTION ABNORMALITY. NO EFFUSION. TECHNOLOGIST: MINDA RODRIGUEZ
[2020-04-03] MEDS ORDERED: ASPIRIN EC 81 MG TAB PO SCH (09:00)
[2020-04-03] MEDS: SERTRALINE HCL 100 MG TAB PO SCH (09:00)
[2020-04-03] MEDS: MAXZIDE (HCTZ 25/TRIAMTERENE 37.5MG) TAB PO SCH (09:00)
[2020-04-03] MEDS: ISENTRESS 400 MG PO SCH ×2 (09:00→17:08)
[2020-04-03] MEDS: DULERA 100/5 (MOMETASONE/FORMOTEROL) INHALER IH SCH (09:00)
--- NOTE | 2020-04-03 09:01 | TREADPHA ---
DX: ACUTE CORNARY SYNDROME Date of Study: 04/02/2020 Ht: 5' 4 " Wt: 216 lb 8 oz Consulting Physician: KEYLA MEDICATIONS: LIPITOR, APRESOLINE, XOPENEX, PRINIVIL, LOPRESSOR, NITROSTAT HISTORY: ATRIAL FIBRILLATION, BIPOLOR, CHRONIC PAIN, CHRONIC OBSTRUCTIVE PULMONARY DISEASE, ESOPHAGEAL VARICES, HEPATITIS, HIV, HYPERTENSION, MIGRAINES. PHYSICIAL EXAMINATION: RESTING B.P.: RESTING H.R.: RESTING EKG: NORMAL SINUS RHYTHM, NON-ST WAVE ABNORMALITY PROTOCOL: PHARMACOLOGIC EXERCISE TIME: 3:30 B.P. AT [place]AK STRESS: IMPRESSION: NEGATIVE EXCERISE TOLERANCE TEST, NO ARRHYTMIA. NORMAL BLOOD PRESSURE RESPONSE.
[2020-04-03] MEDS ORDERED: FENTANYL CITR 100 MCG/2 ML ONE (10:48)
[2020-04-03] MEDS ORDERED: MIDAZOLAM HCL 2 MG/2 ML INJ ONE ×2 (10:48→11:59)
[2020-04-03] MEDS ORDERED: ATROPINE SULF 1 MG/10 ML SYR IV ONE (10:49)
[2020-04-03] MEDS ORDERED: NA CHLORIDE 0.9% 0 ML ONE (10:49)
[2020-04-03] MEDS ORDERED: NITROGLYCERIN/D5W 25 MG/250 ML BTL IV ONE (11:00)
[2020-04-03] MEDS ORDERED: VERAPAMIL HCL 10 MG/4 ML VIAL IV ONE (11:00)
[2020-04-03] MEDS ORDERED: HEPARIN 5000 UNIT/ML 1 ML VIAL ONE (11:00)
[2020-04-03] MEDS ORDERED: NITROGLYCERIN 100 MCG/ML SYR (for cath lab use only) IV ONE (11:00)
[2020-04-03] MEDS ORDERED: LIDOCAINE 1% 20 ML MDV ONE (11:02)
[2020-04-03] MEDS ORDERED: HEPA 1000U/500MLS 2,000 UNIT/1,000 ML BAG IV ONE (11:02)
[2020-04-03] MEDS ORDERED: NA CHLORIDE 0.9% 1,000 ML ONE (11:10)
[2020-04-03] MEDS ORDERED: MIDAZOLAM HCL 5 MG/5 ML INJ ONE (11:32)
[2020-04-03] MEDS ORDERED: HYDRALAZINE HCL 20 MG/ML VIAL ONE (11:42)
[2020-04-03] MEDS ORDERED: TICAGRELOR 90 MG TABLET PO ONE (12:08)
--- NOTE | 2020-04-03 12:45 | P.DS ---
Admission Date: 04/02/20 Discharge Date: 04/03/20 Primary Care Provider: Dr. Rahman; HIV Specialist Disposition: ROUTINE DISCHARGE Discharge Condition: GOOD Reason for Admission: Chest pain Consultations: Cardiology-Dr. Lund/Royce Procedures: CT scan: FINDINGS: No evidence of pulmonary thromboembolism. No acute aortic finding demonstrated. The lungs are mildly emphysematous but clear. Moderate axial hiatal hernia. Cholecystectomy clips. No significant pericardial or pleural fluid. No concerning bony finding. Bilateral renal cysts. IMPRESSION: No evidence of pulmonary thromboembolism. Mild diffuse COPD. ECHO: EF 61% LEFT VENTRICULAR WALL MOTION: NORMAL DOPPLER/COLOR FLOW: NORMAL COMMENTS: NORMAL 2-DIMENSIONAL ECHOCARDIOGRAM WITH DOPPLER. NO WALL MOTION ABNORMALITY. NO EFFUSION. Cardiac Stress Test: FINDINGS: The end diastolic volume is 103 ml, the end systolic volume is 40 ml, and the ejection fraction is 62 %. End-diastolic volume is increased from the 2018 study with a similar, normal range ejection fraction. A mild decrease in activity is seen in the anterior wall left ventricle in the mid in apex portion. This stress defect does not exist on the rest sequencing. Septum, lateral and inferior osorio show no change between rest and stress imaging. IMPRESSION: Mild stress ischemic changes are seen in the anterior wall mid and apex portion. End-diastolic volume is upper normal at 103 ml, increased from 88 ml in 2018. Ejection fraction remains in normal range. Heart Catheterization: Mild LAD disease noted. No stent required. Cardiology recommends medical management. Medical Problem List: Chest pain with shortness of breath secondary to unstable angina with abnormal cardiac stress test status post heart catheterization showed mild LAD disease to continue with medical management complicated with COPD exacerbation Hypertension Hyperlipidemia HIV GERD with hiatal hernia Depression with anxiety Brief History of Present Illness: 65-year-old female with multiple medical problems presented to the emergency room with chest pain and shortness of breath. Patient was admitted for further evaluation and treatment. Hospital Course: Patient presented with Chest pain with shortness of breath secondary to unstable angina. Complicated with COPD exacerbation. Patient was seen and evaluated by Cardiology. Cardiac stress test was performed showing some ischemic change. Cardiology proceeded with heart catheterization. Heart catheterization performed showed mild LAD disease. No stent was required. Cardiology recommended medical therapy. During the course of her stay her hypertensive medications were adjusted. At discharge she will continue with aspirin 81 mg daily, hydralazine 50 mg 1 pill twice daily, lisinopril 20 mg daily, metoprolol 100 mg twice daily, Dyazide once daily, and Lipitor 80 mg daily. Recommend follow up with cardiology in 4 weeks to follow up this hospitalization and continue her care. Her chest pain and shortness of breath was also complicated with COPD exacerbation. This was treated with steroid treatment and COPD medication. Her condition has improved. Patient was qualified for home oxygen. At discharge she will continue with home oxygen to maintain sats above 93%. At discharge she will continue with prednisone 20 mg 1 pill twice daily for 5 days then 1 pill once daily for 5 days. At discharge she will continue with Symbicort 2 puffs twice daily and albuterol 2 puffs 3 times a day as needed for shortness of breath. Recommend follow up with pulmonology as an outpatient to further monitor and address. COPD education provided. Patient with tobacco abuse. Tobacco cessation addressed in detail. Patient with hypertension as stated above medications have been added and adjusted. At discharge she will continue with hydralazine 50 mg 1 pill twice daily, lisinopril 20 mg daily, metoprolol 100 mg 1 pill twice daily, and Dyazide 1 pill daily. Recommend to maintain blood pressure less than 130/80. Further adjustment can be done by her PCP. Patient with hyperlipidemia. Due to her mild LAD disease patient will continue with Lipitor at a higher dose of 80 mg daily. Recommend [employer] diet. This can be further monitored and adjusted by her PCP or cardiology. Patient with GERD and hiatal hernia. Patient in process to have surgery in [place] for this. Patient may proceed with surgery. At discharge she will continue with Nexium 40 mg 1 pill twice daily. Patient with HIV. This appears stable. At discharge she will continue with her current medications of Descovy and Isentress. Recommend follow up with her HIV specialist to further monitor and address. Patient with depression anxiety. At discharge she will continue with her current medications of Zoloft 200 mg daily and lorazepam 2 mg 1 pill twice daily. Recommend to wean off lorazepam in the future. This can be done with the help of her psychiatrist or PCP. Vital Signs/Physical Exam: Temp Pulse Resp BP Pulse Ox 96.5 F L 59 19 181/81 H 97 04/03/20 08:00 04/03/20 08:00 04/03/20 08:00 04/03/20 08:00 04/03/20 08:00 General: Alert, In no apparent distress, Oriented x3, Cooperative HEENT: Atraumatic Neck: Supple Respiratory: Clear to auscultation bilaterally, Normal air movement Cardiovascular: Normal pulses, Regular rate/rhythm Gastrointestinal: Normal bowel sounds, Soft and benign, Non-distended, No tenderness, No masses, No rebound, No guarding Musculoskeletal: No erythema, No tenderness, No warmth Integumentary: No tenderness/swelling, No erythema, No warmth, No cyanosis Neurological: Normal speech, Normal strength at 5/5 x4 extr, Normal tone, Normal affect Laboratory Data at Discharge: WBC 6.0 K/uL (4.3-10.9) 04/01/20 19:16 Hgb 11.6 g/dL (12.0-15.0) L 04/01/20 19:16 Hct 35.5 % (36.0-45.0) L 04/01/20 19:16 Plt Count 199 K/uL (152-406) 04/01/20 19:16 PT 11.7 SECONDS (9.5-12.5) 04/01/20 19:16 INR 0.99 04/01/20 19:16 Sodium 143 mmol/L (136-145) 04/01/20 19:16 Potassium 3.5 mmol/L (3.5-5.1) 04/01/20 19:16 BUN 20 mg/dL (7-18) H 04/01/20 19:16 Creatinine 0.81 mg/dL (0.55-1.3) 04/01/20 19:16 Glucose 102 mg/dL (74-106) 04/01/20 19:16 Magnesium 2.3 mg/dL (1.8-2.4) 04/01/20 19:16 Total Bilirubin 0.3 mg/dL (0.2-1.0) 04/01/20 19:16 AST 23 U/L (15-37) 04/01/20 19:16 ALT 21 U/L (12-78) 04/01/20 19:16 Alkaline Phosphatase 81 U/L (45-117) 04/01/20 19:16 Troponin I < 0.02 ng/mL (0.0-0.045) 04/01/20 21:51 Triglycerides 136 mg/dL (<150) 04/01/20 21:51 Cholesterol 240 mg/dL (<200) H 04/01/20 21:51 HDL Cholesterol 49 mg/dL (40-60) 04/01/20 21:51 Cholesterol/HDL Ratio 4.90 04/01/20 21:51 Home Medications: Raltegravir Potassium [Isentress] 400 mg PO BID 02/28/12 Lorazepam [Ativan] 2 mg PO BID* PRN 04/02/12 Sertraline [Zoloft*] 200 mg PO DAILY 09/15/12 Emtricitabine/Tenofov Alafenam [Descovy 200-25 mg Tablet] 1 tab PO BEDTIME 10/05/16 Esomeprazole Mag Trihydrate [Nexium] 40 mg PO BID 06/18/19 Triamterene/Hydrochlorothiazid [Triamterene-Hctz 37.5-25 mg Cp] 1 each PO DAILY 06/18/19 Metoprolol Tartrate 100 mg PO BID #60 tablet 02/03/20 Albuterol Inhaler [Ventolin Inhaler*] 2 puff IH Q6H PRN #1 hfa.aer.ad 04/02/20 Aspirin [Aspirin EC 81 MG] 81 mg PO DAILY #90 tablet. 04/02/20 Atorvastatin Calcium [Lipitor] 40 mg PO BEDTIME #30 tab 04/02/20 Budesonide/Formoterol Fumarate [Symbicort 160-4.5 Mcg Inhaler] 2 puff IH BID #1 hfa.aer.ad 04/02/20 lisinopriL [Prinivil*] 20 mg PO DAILY #30 tab 04/02/20 predniSONE [Prednisone*] 20 mg PO SEECOM #15 tab 04/02/20 Hydralazine HCl 50 mg PO BID #60 04/03/20 New Medications: Aspirin [Aspirin EC 81 MG] 81 mg PO DAILY #90 tablet. Hydralazine HCl 50 mg PO BID #60 Atorvastatin Calcium [Lipitor] 40 mg PO BEDTIME #30 tab predniSONE [Prednisone*] 20 mg PO SEECOM #15 tab lisinopriL [Prinivil*] 20 mg PO DAILY #30 tab Budesonide/Formoterol Fumarate [Symbicort 160-4.5 Mcg Inhaler] 2 puff IH BID #1 hfa.aer.ad Albuterol Inhaler [Ventolin Inhaler*] 2 puff IH Q6H PRN #1 hfa.aer.ad PRN Reason: Shortness Of Breath Patient Discharge Instructions: 1. Recommend follow up with PCP in 1 week to follow up this hospitalization. 2. Patient presented with Chest pain with shortness of breath secondary to unstable angina. Complicated with COPD exacerbation. Patient was seen and evaluated by Cardiology. Cardiac stress test was performed showing some ischemic change. Cardiology proceeded with heart catheterization. Heart catheterization performed showed mild LAD disease. No stent was required. Cardiology recommended medical therapy. During the course of her stay her hypertensive medications were adjusted. At discharge she will continue with aspirin 81 mg daily, hydralazine 50 mg 1 pill twice daily, lisinopril 20 mg daily, metoprolol 100 mg twice daily, Dyazide once daily, and Lipitor 80 mg daily. Recommend follow up with cardiology in 4 weeks to follow up this hospitalization and continue her care. Prior to discharge will have her assess for cardiac rehab as an outpatient. 3. Her chest pain and shortness of breath was also complicated with COPD exacerbation. This was treated with steroid treatment and COPD medication. Her condition has improved. Patient was qualified for home oxygen. At discharge she will continue with home oxygen to maintain sats above 93%. At discharge she will continue with prednisone 20 mg 1 pill twice daily for 5 days then 1 pill once daily for 5 days. At discharge she will continue with Symbicort 2 puffs twice daily and albuterol 2 puffs 3 times a day as needed for shortness of breath. Recommend follow up with pulmonology as an outpatient to further monitor and address. COPD education provided. 4. Patient with tobacco abuse. Tobacco cessation addressed in detail. 5. Patient with hypertension as stated above medications have been added and adjusted. At discharge she will continue with hydralazine 50 mg 1 pill twice daily, lisinopril 20 mg daily, metoprolol 100 mg 1 pill twice daily, and Dyazide 1 pill daily. Recommend to maintain blood pressure less than 130/80. Further adjustment can be done by her PCP. 6. Patient with hyperlipidemia. Due to her mild LAD disease patient will continue with Lipitor at a higher dose of 80 mg daily. Recommend [employer] diet. This can be further monitored and adjusted by her PCP or cardiology. 7. Patient with GERD and hiatal hernia. Patient in process to have surgery in [place] for this. Patient may proceed with surgery. At discharge she will continue with Nexium 40 mg 1 pill twice daily. 8. Patient with HIV. This appears stable. At discharge she will continue with her current medications of Descovy and Isentress. Recommend follow up with her HIV specialist to further monitor and address. 9. Patient with depression anxiety. At discharge she will continue with her current medications of Zoloft 200 mg daily and lorazepam 2 mg 1 pill twice daily. Recommend to wean off lorazepam in the future. This can be done with the help of her psychiatrist or PCP. Diet: AHA Activity: Ad pricila Followup: Lele Rahman DO, DO [Primary Care Provider] - Time spent managing pt's care (in minutes): 55
--- NOTE | 2020-04-03 13:40 | OP ---
Date of Procedure: 04/03/2020 Surgeon: MIHAELA FORRESTER Procedures Performed: 1.Selective coronary angiogram. 2.IFR of the mid LAD, moderate disease in significant value of 0.95, access right radial artery clos ed with TR band. Indication: Unstable angina with positive stress test. Complications: None. Bleeding: Less than 10 mL. Description Of Procedure: After risks, benefits and alternatives were explained, the patient agreed to proceed and signed informed consent. The patient was brought into the cardiac catheterization lab oratory, prepped and draped in usual sterile fashion. We then used Versed in incremental doses to ac hieve adequate moderate sedation and we accessed the right radial artery using pediatric micropunctur e kit, placed 6-Armenian slender sheath. Then, took 5-Armenian [place] catheter into the aortic root, enga ged left main coronary artery, took standard views, and then right coronary artery took standard view s. Subsequently, there was oifnwggm-he-dmy LAD disease. Since the stress test was positive in anter ior wall, we planned for iFR/FFR. Intervention Details: After heparin was given to assure ACT level up to 250, we took into the aortic root over a J-wire, engaged left main, took the Comet wire into the aortic root and equal ized pressures. Then, took the wire through the left main into the LAD across the stenosis and then iFR value was measured to 0.95 indicating an insignificant lesion. I then removed the wire and took final picture. There were no complications. We removed the guide and the wire as well as sheath and placed TR band with good hemostasis. Impression: Dchw-zq-udfbmjts coronary artery disease in the mid LAD, negative by iFR with a value of 0.95. Other Findings: 1.Left main is normal. 2.Left circumflex is normal. 3.RCA has proximal mid and distal focal lesions between 10% and 30%. Conclusion: Wkee-ja-oqigsesp nonobstructive coronary artery disease. Recommendations: Medical management. SR/MODL Voice ID: [id number] Report ID: [id number]
[2020-04-03 15:28] VITALS: O2SAT 96
[2020-04-03 17:33] VITALS: BP 164/82; TEMP 97.8
[2020-04-03] MEDS ORDERED: DESCOVY PO SCH (21:00)
[2020-04-03] MEDS ORDERED: FAMOTIDINE 20 MG/2 ML VIAL IV ONE (21:56)
--- NOTE | 2020-04-05 23:36 | CON ---
Date of Consultation: 04/02/2020 Reason For Consultation: Unstable angina. History Of Present Illness: Ms. Fleming is a 65-year-old woman with multiple issues including anxiety , atrial fibrillation, bipolar disorder, chronic pain, COPD, esophageal varices, hepatitis, HIV, hype rtension, migraines, and panic attacks. She has had a history of cholecystectomy and appendectomy in the past. She has had a negative catheterization about 5 years ago. Came in with substernal pressu re radiating to both arms, shortness of breath, diaphoresis, and nausea with exertion and at rest. S he was hypertensive when she came in at 170/100 and had negative troponin, but symptoms very suggesti ve of worsening coronary artery disease. Denied PND, orthopnea, pedal edema, palpitation, or syncope . VA has been ruled out. Past Medical History: As stated above. Allergies: SHE IS ALLERGIC TO FENTANYL AND RAGLAN. Review of Systems: Negative. Social History: Negative. Family History: Noncontributory. Medications: At home include inhalers, aspirin, Lipitor, Symbicort. She is on Nexium, hydralazine, metoprolol, Zoloft, triamterene with hydrochlorothiazide, lisinopril, and prednisone. Physical Examination: Vital Signs: Stable. She was in sinus rhythm. HEENT: Negative. Neck: Supple with no bruit. Chest: Clear. Cardiac: Regular rhythm and rate with an S4 gallop. Abdomen: Obese, but benign. Extremities: No clubbing, cyanosis, or edema. Diagnostic Data: Fairly unremarkable. She had a stress test that was ordered by Dr. Palmer that gricelda wed mild stress ischemic changes in the anterior mid and apex wall. Impression And Plan: The patient with normal catheterization 5 years ago, chest pains suggestive of unstable angina. VA has been ruled out. Stress test was positive for ischemia. We will plan a hear t catheterization on 04/03/2020. Continue her present regimen for now. Other problems including anx iety, bipolar disorder, paroxysmal atrial fibrillation, chronic pain, chronic obstructive pulmonary d isease, human immunodeficiency virus, hepatitis, hypertension, migraine headaches, and esophageal natacha ices are stable at this point. We will continue her present regimen from a medical therapy standpoin t. We will see what the catheterization shows before we make any further decisions. NB/MODL Voice ID: [id number] Report ID: [id number]
== END 2020-04-03 18:02 | disposition home or self-care (01) | DRG 287 ==
LOC: ER 15:53 → OBSVTOIN 20:39 → ERHOLD 20:39 → INTOOBSV 20:39 → 2ND 21:08 → OBSVTOIN 04-02 15:09
PROVIDERS: ADMIT Internal Medicine; ATTEND Family Medicine
PROC: 4A023N7 Measurement of Cardiac Sampling and Pressure, Left Heart, Percutaneous Approach (ICD-10-PCS; principal; 2020-04-03)
PROC: B2111ZZ Fluoroscopy of Multiple Coronary Arteries using Low Osmolar Contrast (ICD-10-PCS; 2020-04-03)
DX: I25.110 Atherosclerotic heart disease of native coronary artery with unstable angina pectoris (principal); J44.1 Chronic obstructive pulmonary disease with (acute) exacerbation; I10 Essential (primary) hypertension; F41.8 Other specified anxiety disorders; G89.29 Other chronic pain; E78.5 Hyperlipidemia, unspecified; K44.9 Diaphragmatic hernia without obstruction or gangrene; I48.91 Unspecified atrial fibrillation; K21.9 Gastro-esophageal reflux disease without esophagitis; I99.8 Other disorder of circulatory system; B19.20 Unspecified viral hepatitis C without hepatic coma; E66.01 Morbid (severe) obesity due to excess calories; Z68.37 Body mass index [BMI] 37.0-37.9, adult; Z21 Asymptomatic human immunodeficiency virus [HIV] infection status; Z88.1 Allergy status to other antibiotic agents; Z88.5 Allergy status to narcotic agent; Z88.8 Allergy status to other drugs, medicaments and biological substances; Z79.899 Other long term (current) drug therapy; Z90.49 Acquired absence of other specified parts of digestive tract; Z96.611 Presence of right artificial shoulder joint; Z79.82 Long term (current) use of aspirin; Z79.52 Long term (current) use of systemic steroids; Z79.51 Long term (current) use of inhaled steroids; Z20.828 Contact with and (suspected) exposure to other viral communicable diseases
CPT/HCPCS: 36415; 71045; 71275; 78452; 80048; 80061; 80076; 83036; 83735; 83880; 84484; 85025; 85379; 85610; 93005; 93017; 93306; 93454; 93571; 96372; 96374; 96375; 99285; A9500; C1893; G0378; J0360; J0583; J1644; J1650; J2250; J2270; J2405; J2785; J3010; J3490; J7030; J7512; J7606; Q9967; U0003

== ENCOUNTER 2020-04-04 06:36 | Emergency (ER) | payer OTHER ==
--- OUTSIDE RECORDS SUMMARY | 2020-04-04 06:38 | XMS REPORT | Clinical Summary ---
:1955 Author Organization [facility] Address [address] [place] [address] Care Team Providers Name Role Phone Asked, [...] Telephone General Surgery Ramiro Mitchell MD after 04/04/2019 Surgical History Surgery Date Site/Laterality Comments ORTHOPEDIC SURGERY JOINT REPLACEMENT shoulder repla cement BREAST SURGERY cyst removed CHOLECYSTECTOMY APPENDECTOMY ARTHROPLASTY, SHOULDER, TOTAL 10/19/2016 Shoulder/Left Pr ocedure: REV. TOTAL SHOULDER ARTHROP LASTY, REMOVAL OF HARDW ARE ; Surgeon: Austin Bowles MD; Location: [address]; Service: Orthop edics; Laterality: Left ; [...] with No / Unsure 03/31/2020 4:01 PM [employer] someone who was confirmed or suspected to have Coronavirus / COVID-19? Last Filed Vital Signs Not on file Plan of Treatment Date Type Specialty Care Team Description 04/07/2020 Office Visit Cardiothoracic Surgery Eliseo Glaser MD [address] [facility] [address] [place], [place] [address] [phone] Health Maintenance Due Date Last Done Comments CERVICAL CANCER SCREENING 01/22/1977 BREAST CANCER SCREENING 01/22/2006 COLONOSCOPY SCREENING 01/22/2006 SHINGLES VACCINES (#1) 01/22/2006 INFLUENZA VACCINE 12/22/2019 Implants Implanted Type Area Burglar Alarm Operator Device Shelf Model / Identifier Expiration Serial / Date Lot Versa-Dial/Comp Ti Std Taper Used W/25mm Glenoid Basplate - [id number] N/A: N/A [employer] 01/22/2026 [id number] / Implanted: Qty: 1 on 10/19/2016 by Austin Bowles MD at [facility] IMPLANT / DEVICES [id number] 41mm Comprehensive Reverse Shoulder Glenosphere Ba - [id number] I PM N/A: N/A [employer] 11/21/2023 [id number] / Implanted: Qty: 1 on 10/19/2016 by Austin Bowles MD at [facility] IMPLANT / DEVICES [id number] Arcom Xl 44-41 Std +3 Humeral Brg - [id number] Left: [employer] 07/20/2017 XL [id number] / Implanted: Qty: 1 on 10/19/2016 by Austin Bowles MD at [facility] IMPLANT Shoulder / DEVICES [id number] Humeral Tray With Locking Ring +5 Left: [employer] 03/31/2026 [id number] / Implanted: Qty: 1 on 10/19/2016 by Austin Bowles MD at [facility] Shoulder / [id number] Results Not on fileafter 04/04/2019 Advance Directives For more information, please contact: [phone] Type Date Recorded Patient Systems Developer Explanati on Advance Directives, Living Will and Medical Power of Educational Aide
--- OUTSIDE RECORDS SUMMARY | 2020-04-04 06:39 | XMS REPORT | Continuity of Care Document ---
:[address] [facility] t Address [address] [place] [address] Care Team Providers Name Role Phone Asked, Pcp Primary Care Physician Unavailable Provider Attending Clinician Curt Mitchell MD Attending Clinician DO SYL Attending Clinician Unavailable DO SYL Admitting Clinician Unavailable Payers Payer Name Policy Type Policy Effective Date Expiration Date Sour ce Number [facility] [id number] [address] [place] COMPLETE 00:00:00 [facility] [id number]/05/2016- PresentHMO [facility] MEDICAID[place] [id number] [address] [place] COMM STAR+ 00:00:00 [facility] EFRrcenz60980/05/2016- PresentHMO Problems Condition Condition Condition Status Onset [...] 00 s to drug Codeine Propensi Active [place] ty to 3-10 Methodi adverse 00:00: st reaction 00 s to drug Family History Family Member Diagnosis Comments Start Date Stop Date Source Natural father Hypertension Derrick Jean Natural father Kidney disease [facility] Social History Social Habit Start Date Stop Date Quantity Comments Source Sex Assigned At [facility] ethodist Exposure to Not sure [place] Metho dist SARS-CoV-2 (event) Cigarettes smoked 2016-11-03 2016-11-03 [place] [facility] current (pack per 00:00:00 00:00:00 day) - Reported Tobacco use and 2016-11-03 2016-11-03 Never used [facility] ethodist exposure 00:00:00 00:00:00 Alcohol intake 2016-11-03 2016-11-03 Current drinker [place] [facility] 00:00:00 00:00:00 of alcohol (finding) Alcohol Comment 2016-09-23 2016-09-23 rare [facility] ethodist 00:00:00 00:00:00 Smoking Status Start Date Stop Date Source Current every day smoker 2016-11-03 00:00:00 [place] [facility] Medications Ordered Filled Start Stop Current Ordering [...] Future Scheduled 2019-12-22 INFLUENZA VACCINE [place] [facility] Test 00:00:00 [code = INFLUENZA VACCINE] Future Scheduled 2006-01-22 BREAST CANCER [facility] thodist Test 00:00:00 SCREENING [code = BREAST CANCER SCREENING] Future Scheduled 2006-01-22 COLONOSCOPY SCREENING [facility] Test 00:00:00 [code = COLONOSCOPY SCREENING] Future Scheduled 2006-01-22 SHINGLES VACCINES [place] [facility] Test 00:00:00 (#1) [code = SHINGLES VACCINES (#1)] Future Scheduled 1977-01-22 Screening for [facility] thodist Test 00:00:00 malignant neoplasm of cervix (procedure) [code = 277971863] Results Test Description Test Time Test Comments [...] (qualifier value) Not Detected N URINALYSIS WITH [id number] 10:57:00 Test Item Value Reference Range Interpretation Comments Color (test code = UCOLR) Dk. Yellow Clarity (test code = UCLAR) Hazy Glucose (test code = UGLUC) NEGATIVE NEGATIVE N Bilirubin (test code = UBILI) NEGATIVE NEGATIVE N Ketones (test code = UKET) NEGATIVE NEGATIVE N Specific [place] (test code = 1.025 1.005-1.030 A USPGR) [...]
[2020-04-04 07:19] LABS: Absolute Lymphocytes (CBC) 1.2 K/uL (0.7-4.9); Basophils % 0.7 % (0-1.3); Lymphocytes % 11.1 % (15.3-44.8); MPV 7.6 fL (7.6-11.3); RBC Red Blood Cell Count 4.82 M/uL (3.86-4.86)
[2020-04-04 07:22] LABS: Protime INR 1.02
[2020-04-04] MEDS ORDERED: IPRATROPIUM BROM 0.5MG/2.5ML ONE (07:25)
[2020-04-04] MEDS ORDERED: METHYLPREDNISOLONE 125 MG INJ ONE (07:25)
[2020-04-04] MEDS ORDERED: NITROGLYCERIN 1 GM PKT TD ONE (07:25)
[2020-04-04] MEDS ORDERED: FAMOTIDINE 20 MG/2 ML VIAL IV ONE (07:26)
[2020-04-04] MEDS ORDERED: LEVALBUTEROL 1.25 MG/3 ML NEB ONE (07:26)
[2020-04-04 07:39] LABS: ALT/SGPT 26 U/L (12-78); AST/SGOT 27 U/L (15-37); Albumin 3.6 g/dL (3.4-5.0); Alkaline Phosphatase 86 U/L (45-117); BUN Blood Urea Nitrogen 22 mg/dL (7-18); Bicarbonate 30 mmol/L (21-32); Bilirubin Direct < 0.1 mg/dL (0-0.2); Bilirubin Total 0.4 mg/dL (0.2-1.0); Glucose Level 118 mg/dL (74-106); Magnesium 2.3 mg/dL (1.8-2.4); NT PRO-BNP 1047 pg/mL (<125); Potassium 3.4 mmol/L (3.5-5.1); Protein, Total 7.8 g/dL (6.4-8.2); Sodium Level 140 mmol/L (136-145); Troponin (Emerg Dept Use Only) < 0.02 ng/mL (0.0-0.045)
[2020-04-04] MEDS ORDERED: MORPHINE 4 MG/ML SYR ONE (07:51)
[2020-04-04] MEDS ORDERED: ONDANSETRON 4 MG/2 ML VIAL ONE (07:51)
--- NOTE | 2020-04-04 08:37 | EDPHYS ---
Physician Documentation [facility] Name: Marjan Fleming Age: 65 yrs Sex: Female : 1955 Arrival Date: 04/04/2020 Time: 06:41 Bed 4 Private MD: ED Physician Justus Kolb HPI: 04/04 06:56 This 65 yrs old Female presents to ER via EMS with complaints of Breathing thomas Difficulty. 06:56 The patient has shortness of breath with light activity. Onset: The symptoms/episode thomas began/occurred 1 day(s) ago. Duration: The symptoms are continuous, and are steadily getting worse. The patient's shortness of breath is aggravated by coughing, light activity, supine position, talking, walking, is alleviated by nebulizer treatment, pursed lip breathing, rest, sitting up, application of supplemental oxygen. Associated signs and symptoms: Pertinent positives: non-productive cough. Severity of symptoms: At their worst the symptoms were moderate in the emergency department the symptoms are worse mildly. The patient has experienced similar episodes in the past. Historical: - Allergies: 06:45 Bactrim DS; rr5 06:45 metoclopramide HCl; rr5 06:45 Stadol; rr5 - PMHx: 06:45 Anxiety; Atrial Fib; Bipolar disorder; Chronic pain; COPD; esophageal varices; rr5 Hepatitis; HIV; Hypertension; Migraines; Panic Attacks; - PSHx: 06:45 Cholecystectomy; Appendectomy; rr5 - Immunization history:: Adult Immunizations up to date. - Social history:: Smoking status: unknown. ROS: 06:57 Constitutional: Negative for fever, chills, and weight loss, Eyes: Negative for injury, thomas pain, redness, and discharge, ENT: Negative for injury, pain, and discharge, Neck: Negative for injury, pain, and swelling, Cardiovascular: Negative for chest pain, palpitations, and edema, Abdomen/GI: Negative for abdominal pain, nausea, vomiting, diarrhea, and constipation, Back: Negative for injury and pain, : Negative for injury, bleeding, discharge, and swelling, MS/Extremity: Negative for injury and deformity, Skin: Negative for injury, rash, and discoloration, Neuro: Negative for headache, weakness, numbness, tingling, and seizure, Psych: Negative for depression, anxiety, suicide ideation, homicidal ideation, and hallucinations, Allergy/Immunology: Negative for hives, rash, and allergies, Endocrine: Negative for neck swelling, polydipsia, polyuria, polyphagia, and marked weight changes, Hematologic/Lymphatic: Negative for swollen nodes, abnormal bleeding, and unusual bruising. 06:57 Respiratory: Positive for cough, shortness of breath, wheezing, inspiratory, expiratory. Exam: 06:57 Constitutional: This is a well developed, well nourished patient who is awake, alert, thomas and in no acute distress. Head/Face: Normocephalic, atraumatic. Eyes: Pupils equal round and reactive to light, extra-ocular motions intact. Lids and lashes normal. Conjunctiva and sclera are non-icteric and not injected. Cornea within normal limits. Periorbital areas with no swelling, redness, or edema. ENT: Nares patent. No nasal discharge, no septal abnormalities noted. Tympanic membranes are normal and external auditory canals are clear. Oropharynx with no redness, swelling, or masses, exudates, or evidence of obstruction, uvula midline. Mucous membranes moist. Neck: Trachea midline, no thyromegaly or masses palpated, and no cervical lymphadenopathy. Supple, full range of motion without nuchal rigidity, or vertebral point tenderness. No Meningismus. Chest/axilla: Normal chest wall appearance and motion. Nontender with no deformity. No lesions are appreciated. Cardiovascular: Regular rate and rhythm with a normal S1 and S2. No gallops, murmurs, or rubs. Normal PMI, no JVD. No pulse deficits. Abdomen/GI: Soft, non-tender, with normal bowel sounds. No distension or tympany. No guarding or rebound. No evidence of tenderness throughout. Back: No spinal tenderness. No costovertebral tenderness. Full range of motion. Female : Normal external genitalia. Skin: Warm, dry with normal turgor. Normal color with no rashes, no lesions, and no evidence of cellulitis. MS/ Extremity: Pulses equal, no cyanosis. Neurovascular intact. Full, normal range of motion. Neuro: Awake and alert, GCS 15, oriented to person, place, time, and situation. Cranial nerves II-XII grossly intact. Motor strength 5/5 in all extremities. Sensory grossly intact. Cerebellar exam normal. Normal gait. Psych: Awake, alert, with orientation to person, place and time. Behavior, mood, and affect are within normal limits. 06:57 Respiratory: mild respiratory distress is noted, moderate respiratory distress is noted, Respirations: labored breathing, that is mild, Breath sounds: decreased breath sounds, rhonchi, that are mild, wheezing: inspiratory expiratory Respiratory rate: 20 08:37 ECG was reviewed by the Attending Physician. [facility] Vital Signs: 06:42 BP 170 / 100; Pulse 73; Resp 20; Temp 99.1(O); Pulse Ox 96% on R/A; Weight 97.52 kg; oe Height 5 ft. 4 in. (162.56 cm); 07:20 BP 162 / 97; Pulse 69; Resp 18; Pulse Ox 100% on Nebulizer Mask; em 08:00 BP 119 / 79; Pulse 77; Resp 18; Pulse Ox 96% on 2 lpm NC; em 09:03 BP 118 / 76; Pulse 76; Resp 19; Pulse Ox 93% on 2 lpm NC; em 10:26 BP 119 / 66; Pulse 75; Resp 18; Temp 99.0(O); Pulse Ox 92% on 2 lpm NC; mh5 06:42 Body Mass Index 36.90 (97.52 kg, 162.56 cm) oe MDM: 06:42 Patient medically screened. [facility] 06:58 Differential diagnosis: asthma, Bronchitis CHF exacerbation, Chronic Obstructive thomas Pulmonary Disease pneumonia, Pneumothorax pulmonary edema, Pulmonary Embolism reactive airway disease, Unstable Angina. Antibiotic administration: Rocephin and Zithromax given. The patient's Wells Deep Vein Thrombosis Score was calculated as follows: Total Score: 0-2 Pts- Low Risk. The patient's pulmonary embolism risk score was calculated as follows: Total Score: 0-2 points. This patient was found to be at low risk for a pulmonary embolism by using the Well's assessment criteria. Immunization status: Influenza vaccine: Data reviewed: vital signs, nurses notes, lab test result(s), EKG, radiologic studies, CT scan, plain films. Data interpreted: hall monitor: rate is 73 beats/min, rhythm is regular, Pulse oximetry: on room air is 96 %. Test interpretation: by ED physician or midlevel provider: ECG, plain radiologic studies. Counseling: I had a detailed discussion with the patient and/or guardian regarding: the historical points, exam findings, and any diagnostic results supporting the discharge/admit diagnosis, the presence of at least one elevated blood pressure reading (>120/80) during this emergency department visit, lab results, radiology results, the need for further work-up and treatment in the hospital. 10:29 Physician consultation: César Rincon DO regarding admission, wants patient after his thomas evaluation to be dc'd and not admitted, take meds perscribed and follow up acccordingly. 04/04 06:55 Order name: Basic Metabolic Panel; Complete Time: 08:33 [facility] 04/04 06:55 Order name: CBC with Diff; Complete Time: 07:29 [facility] 04/04 06:55 Order name: LFT's; Complete Time: 08:33 [facility] 04/04 06:55 Order name: Magnesium; Complete Time: 08:33 [facility] 04/04 06:55 Order name: NT PRO-BNP; Complete Time: 08:33 [facility] 04/04 06:55 Order name: PT-INR; Complete Time: 07:29 [facility] 04/04 06:55 Order name: Troponin (emerg Dept Use Only); Complete Time: 08:33 [facility] 04/04 06:55 Order name: XRAY Chest (1 view); Complete Time: 10:25 [facility] 04/04 06:55 Order name: Blood Culture Adult (2) [facility] 04/04 06:55 Order name: Cardiac monitoring; Complete Time: 07:07 [facility] 04/04 06:55 Order name: IV Saline Lock; Complete Time: 07:07 [facility] 04/04 06:55 Order name: Labs collected and sent; Complete Time: 07:07 [facility] 04/04 06:55 Order name: O2 Per Protocol; Complete Time: 07:07 [facility] 04/04 06:55 Order name: O2 Sat Monitoring; Complete Time: 07:07 [facility] EC:37 Rate is 74 beats/min. Rhythm is regular. QRS Williamson is Normal. HI interval is normal. QRS thomas interval is normal. QT interval is normal. No Q waves. T waves are Normal. Clinical impression: NSR w/ Non-specific ST/T Changes. Interpreted by me. Reviewed by me. Administered Medications: 07:09 Drug: Xopenex (3) 1.25 mg Route: Inhalation; em 08:59 Follow up: Response: No adverse reaction; Marked relief of symptoms em 07:09 Drug: AtroVENT Aerosol 0.5 mg Route: Inhalation; em 08:59 Follow up: Response: No adverse reaction; Marked relief of symptoms em 07:11 Drug: SOLU-Medrol 125 mg Route: IVP; Site: left antecubital; em 08:59 Follow up: Response: No adverse reaction em 07:13 Drug: Pepcid 20 mg Route: IVP; Site: left antecubital; em 08:59 Follow up: Response: No adverse reaction em 07:42 Drug: Zofran (Ondansetron) 4 mg Route: IVP; Site: left antecubital; em 08:30 Follow up: Response: No adverse reaction em 07:44 Drug: morphine 4 mg Route: IVP; Site: left antecubital; em 08:30 Follow up: Response: No adverse reaction; Marked relief of symptoms; Pain is unchanged, em physician notified 07:45 Drug: Nitro-Bid Ointment 2 % 1 inches Route: Transdermal; Site: anterior chest wall; em 09:18 Drug: Potassium Effervescent Tablet 25 mEq Route: PO; em 11:10 Follow up: Response: No adverse reaction em Disposition: 04/04/20 10:27 Discharged to Home. Impression: Dyspnea, Chronic obstructive pulmonary disease with (acute) exacerbation, Cardiomegaly, Obesity, unspecified, Tobacco abuse counseling, Tobacco use, Hypokalemia, Human immunodeficiency virus [HIV] disease. - Condition is Stable. - Discharge Instructions: Chronic Obstructive Pulmonary Disease, Obesity, Adult, Shortness of Breath, Steps to Quit Smoking, Smoking Hazards, Shortness of Breath, [id number], Chronic Obstructive Pulmonary Disease, [id number]. - Medication Reconciliation Form, Thank You Letter, Antibiotic Education, Prescription Opioid Use form. - Follow up: Private Physician; When: 2 - 3 days; Reason: Recheck today's complaints, Continuance of care, Re-evaluation by your physician. - Problem is new. - Symptoms have improved. Signatures: Dispatcher [employer] Justus Long MD MD cha Munoz, Edgar, RN RN Goldy London RN RN rr5 Corrections: (The following items were deleted from the chart) 10:25 08:36 Hospitalization Ordered by Goldy Baker MD for Observation. Preliminary thomas diagnosis is Dyspnea; Chronic obstructive pulmonary disease with (acute) exacerbation. Bed requested for Telemetry/MedSurg (observation). Status is Observation. Condition is Stable. Problem is new. Symptoms have improved. [facility] 10:28 10:27 04/04/2020 10:27 Discharged to Home. Impression: Dyspnea; Chronic obstructive thomas pulmonary disease with (acute) exacerbation; Cardiomegaly; Obesity, unspecified; Tobacco abuse counseling; Tobacco use; Hypokalemia. Condition is Stable. Forms are Medication Reconciliation Form, Thank You Letter, Antibiotic Education, Prescription Opioid Use. Follow up: Private Physician; When: 2 - 3 days; Reason: Recheck today's complaints, Continuance of care, Re-evaluation by your physician. Problem is new. Symptoms have improved. [facility] 11:12 10:28 04/04/2020 10:27 Discharged to Home. Impression: Dyspnea; Chronic obstructive em pulmonary disease with (acute) exacerbation; Cardiomegaly; Obesity, unspecified; Tobacco abuse counseling; Tobacco use; Hypokalemia; Human immunodeficiency virus [HIV] disease. Condition is Stable. Discharge Instructions: Chronic Obstructive Pulmonary Disease, Obesity, Adult, Shortness of Breath, Steps to Quit Smoking, Smoking Hazards, Shortness of Breath, [id number], Chronic Obstructive Pulmonary Disease, [id number]. Forms are Medication Reconciliation Form, Thank You Letter, Antibiotic Education, Prescription Opioid Use. Follow up: Private Physician; When: 2 - 3 days; Reason: Recheck today's complaints, Continuance of care, Re-evaluation by your physician. Problem is new. Symptoms have improved. thomas
--- NOTE | 2020-04-04 08:37 | ER ---
Nurse's Notes [facility] Name: Marjan Fleming Age: 65 yrs Sex: Female : 1955 Arrival Date: 04/04/2020 Time: 06:41 Bed 4 Private MD: Diagnosis: Dyspnea;Chronic obstructive pulmonary disease with (acute) exacerbation;Cardiomegaly;Obesity, unspecified;Tobacco abuse counseling;Tobacco use;Hypokalemia;Human immunodeficiency virus [HIV] disease Presentation: 04/04 06:42 Chief complaint: EMS states: she complaints of shortness of breath, cough, vomited 2x rr5 started last night and urinary incontinence. Coronavirus screen: Client denies travel out of the [place] in the last 14 days. cough unrelated to allergies, shortness of breath, Client presents with at least one sign or symptom that may indicate coronavirus-19. Standard/surgical mask placed on the client. Provider contacted for isolation considerations. The client reports previous COVID testing was negative. Date of collection: April 03, 2020 results are located within the EHR/EMR. Ebola Screen: Patient negative for fever greater than or equal to 101.5 degrees Fahrenheit, and additional compatible Ebola Virus Disease symptoms Patient denies exposure to infectious person. Patient denies travel to an Ebola-affected area in the 21 days before illness onset. Initial Sepsis Screen: Does the patient meet any 2 criteria? No. Patient's initial sepsis screen is negative. Does the patient have a suspected source of infection? Yes: Productive cough/pneumonia. Risk Assessment: Do you want to hurt yourself or someone else? Patient reports no desire to harm self or others. Onset of symptoms was April 04, 2020. 06:42 Method Of Arrival: EMS: [facility] rr5 06:42 Acuity: BLAYNE 3 rr5 Triage Assessment: 07:17 General: Appears uncomfortable, Behavior is calm, cooperative. Respiratory: Reports rv shortness of breath at rest Onset: The symptoms/episode began/occurred gradually, the patient has mild shortness of breath. Historical: - Allergies: 06:45 Bactrim DS; rr5 06:45 metoclopramide HCl; rr5 06:45 Stadol; rr5 - PMHx: 06:45 Anxiety; Atrial Fib; Bipolar disorder; Chronic pain; COPD; esophageal varices; rr5 Hepatitis; HIV; Hypertension; Migraines; Panic Attacks; - PSHx: 06:45 Cholecystectomy; Appendectomy; rr5 - Immunization history:: Adult Immunizations up to date. - Social history:: Smoking status: unknown. Screenin:17 Abuse screen: Denies threats or abuse. Denies injuries from another. Nutritional rv screening: No deficits noted. Tuberculosis screening: No symptoms or risk factors identified. Fall Risk None identified. Assessment: 07:17 Pain: Denies pain. Cardiovascular: Rhythm is sinus rhythm. Respiratory: Airway is rv patent Respiratory effort is even, unlabored, Breath sounds are clear bilaterally. 07:20 General: Appears in no apparent distress. comfortable, Behavior is calm, cooperative, em appropriate for age, Denies fever. Pain: Complains of pain in chest Pain currently is 10 out of 10 on a pain scale. Neuro: Level of Consciousness is awake, alert, obeys commands, Oriented to person, place, time, situation. Cardiovascular: Rhythm is sinus rhythm. Respiratory: Airway is patent Respiratory effort is even, unlabored, Respiratory pattern is regular, symmetrical. Derm: Skin is intact, is fragile, is thin, Skin is pink, warm \T\ dry. Musculoskeletal: Range of motion: intact in all extremities. 08:30 Reassessment: reports pain is unchanged, provider notified, reports chest pain from em coughing is the same. 09:15 Reassessment: Patient appears in no apparent distress at this time. Patient and/or em family updated on plan of care and expected duration. Pain level reassessed. Patient is alert, oriented x 3, equal unlabored respirations, skin warm/dry/pink. 10:30 Reassessment: Patient appears in no apparent distress at this time. Patient and/or em family updated on plan of care and expected duration. Pain level reassessed. Patient is alert, oriented x 3, equal unlabored respirations, skin warm/dry/pink. Vital Signs: 06:42 BP 170 / 100; Pulse 73; Resp 20; Temp 99.1(O); Pulse Ox 96% on R/A; Weight 97.52 kg; oe Height 5 ft. 4 in. (162.56 cm); 07:20 BP 162 / 97; Pulse 69; Resp 18; Pulse Ox 100% on Nebulizer Mask; em 08:00 BP 119 / 79; Pulse 77; Resp 18; Pulse Ox 96% on 2 lpm NC; em 09:03 BP 118 / 76; Pulse 76; Resp 19; Pulse Ox 93% on 2 lpm NC; em 10:26 BP 119 / 66; Pulse 75; Resp 18; Temp 99.0(O); Pulse Ox 92% on 2 lpm NC; mh5 06:42 Body Mass Index 36.90 (97.52 kg, 162.56 cm) oe ED Course: 06:41 Patient arrived in ED. bb 06:42 Justus Kolb MD is Attending Physician. thomas 06:44 Triage completed. rr5 07:05 Inserted saline lock: 20 gauge in right forearm, using aseptic technique. Blood rv collected. 07:05 Initial lab(s) drawn, by me, sent to lab. First set of blood cultures drawn by me. rv 07:06 Venu Ortega, RN is Primary Nurse. em 07:17 Arm band placed on right wrist. Patient placed in the treatment room, on a stretcher, rv Patient notified of wait time. 07:17 Patient has correct armband on for positive identification. medical lab director on. Pulse rv ox on. NIBP on. 08:05 XRAY Chest (1 view) In Process Unspecified. EDMS 08:35 Goldy Baker MD is Hospitalizing Provider. thomas 11:08 No provider procedures requiring assistance completed. IV discontinued, intact, em bleeding controlled, No redness/swelling at site. Pressure dressing applied. Administered Medications: 07:09 Drug: Xopenex (3) 1.25 mg Route: Inhalation; em 08:59 Follow up: Response: No adverse reaction; Marked relief of symptoms em 07:09 Drug: AtroVENT Aerosol 0.5 mg Route: Inhalation; em 08:59 Follow up: Response: No adverse reaction; Marked relief of symptoms em 07:11 Drug: SOLU-Medrol 125 mg Route: IVP; Site: left antecubital; em 08:59 Follow up: Response: No adverse reaction em 07:13 Drug: Pepcid 20 mg Route: IVP; Site: left antecubital; em 08:59 Follow up: Response: No adverse reaction em 07:42 Drug: Zofran (Ondansetron) 4 mg Route: IVP; Site: left antecubital; em 08:30 Follow up: Response: No adverse reaction em 07:44 Drug: morphine 4 mg Route: IVP; Site: left antecubital; em 08:30 Follow up: Response: No adverse reaction; Marked relief of symptoms; Pain is unchanged, em physician notified 07:45 Drug: Nitro-Bid Ointment 2 % 1 inches Route: Transdermal; Site: anterior chest wall; em 09:18 Drug: Potassium Effervescent Tablet 25 mEq Route: PO; em 11:10 Follow up: Response: No adverse reaction em Outcome: 08:36 Decision to Hospitalize by Provider. [facility] 10:27 Discharge ordered by . [facility] 11:08 Discharged to home ambulatory. em 11:08 Condition: good 11:08 Discharge instructions given to patient, Instructed on discharge instructions, follow up and referral plans. Demonstrated understanding of instructions, follow-up care. 11:12 Patient left the ED. em Signatures: Dispatcher [employer] Justus Long MD MD cha Munoz, Edgar, RN RN em Ballard, Brenda, RN RN bb Espinosa, Orlando oe Martinez, Maria [facility] Scott Yates RN RN Goldy Agee RN RN rr5 Corrections: (The following items were deleted from the chart) 06:44 06:42 BP 170 / 100; Pulse 73bpm; Resp 20bpm; Pulse Ox 96% RA; Temp 99.1F Oral; oe oe
--- NOTE | 2020-04-04 08:54 | RAD REPORT ---
EXAM DESCRIPTION: RAD - Chest Single View - 04/04/2020 8:04 am CLINICAL HISTORY: Cough;Dyspnea COMPARISON: April 01 imaging TECHNIQUE: AP portable chest image was obtained 04/04/2020 8:04 am . FINDINGS: Lung volumes are very low, reduced even further from the April 01 imaging. Portable devang hnique and large body habitus further limit the study. No peripheral mass or consolidations seen. Significant failure or volume overload are doubtful. Heart and vasculature are normal. No measurable pleural effusion and no pneumothorax. No acute bony abnorm ality seen. No acute aortic findings suspected. IMPRESSION: No acute cardiopulmonary process. No significant change from comparison.
[2020-04-04] MEDS ORDERED: POTASSIUM 25 MEQ EFFERV TAB ONE (09:26)
[2020-04-04 12:00] VITALS: BP 119/66; TEMP 99; O2SAT 92
--- NOTE | 2020-04-04 15:30 | P.CNS ---
Date of Consult: 04/04/20 Reason for Consult: Evaluate for possible Admission Requesting Physician: Justus Kolb Primary Care Provider: Dr. Rahman Chief Complaint: Shortness of breath History of Present Illness: 65-year-old female with multiple medical problems including CAD, COPD, hypertension, hyperlipidemia, HIV, GERD with hiatal hernia and depression with anxiety. Patient was hospitalized 04/02/20 through 04/03/20. Patient return due to increasing shortness of breath. Patient was recently discharged for chest pain. Patient had extensive workup including heart catheterization showing mild LAD disease. Patient also had COPD exacerbation. Patient was sent home with multiple medications including aspirin, hydralazine, lisinopril, metoprolol, Dyazide and Lipitor for her CAD. She was also given prednisone, Symbicort, and albuterol for her COPD. In the ER she was evaluated. ER consulted me to evaluate for possible readmission. Upon further investigation patient wanted to stay in the hospital because she had to take care of 4 grandchildren. Apparently her daughter went on a trip. Allergies fentanyl Allergy (Severe, Verified 02/03/20 00:08) Hives butorphanol tartrate [From Stadol] Allergy (Verified 02/03/20 00:08) confusion metoclopramide HCl [From Reglan] Allergy (Verified 02/03/20 00:08) Shortness of breath sulfamethoxazole [From Bactrim] Allergy (Verified 02/03/20 00:08) Hives/Rash trimethoprim [From Bactrim] Allergy (Verified 02/03/20 00:08) Hives/Rash Bactrim DS Allergy (Intermediate, Uncoded 02/03/20 00:08) Nausea/Vomiting Home medications list reviewed: Yes Home Medications: Raltegravir Potassium [Isentress] 400 mg PO BID 02/28/12 Lorazepam [Ativan] 2 mg PO BID* PRN 04/02/12 Sertraline [Zoloft*] 200 mg PO DAILY 09/15/12 Emtricitabine/Tenofov Alafenam [Descovy 200-25 mg Tablet] 1 tab PO BEDTIME 10/05/16 Esomeprazole Mag Trihydrate [Nexium] 40 mg PO BID 06/18/19 Triamterene/Hydrochlorothiazid [Triamterene-Hctz 37.5-25 mg Cp] 1 each PO DAILY 06/18/19 Metoprolol Tartrate 100 mg PO BID #60 tablet 02/03/20 Albuterol Inhaler [Ventolin Inhaler*] 2 puff IH Q6H PRN #1 hfa.aer.ad 04/02/20 Aspirin [Aspirin EC 81 MG] 81 mg PO DAILY #90 tablet. 04/02/20 Atorvastatin Calcium [Lipitor] 40 mg PO BEDTIME #30 tab 04/02/20 Budesonide/Formoterol Fumarate [Symbicort 160-4.5 Mcg Inhaler] 2 puff IH BID #1 hfa.aer.ad 04/02/20 lisinopriL [Prinivil*] 20 mg PO DAILY #30 tab 04/02/20 predniSONE [Prednisone*] 20 mg PO SEECOM #15 tab 04/02/20 Hydralazine HCl 50 mg PO BID #60 04/03/20 - Past Medical/Surgical History Diabetic: No -: HIV diag ~ [address] Yohan Cardenas in [place] -: CAD -: Bipolar disorder Dr Krause in [place] -: Hypertension -: COPD -: Tobacco abuse -: Alcohol abuse -: Anemia likely of chronic disease -: Hyperlipidemia -: GERD with hiatal hernia -: Appendectomy -: Cholecystectomy -: left shoulder rotated cuff -: Right foot repair -: Right shoulder replacement -: left shoulder rotated cuff Psychosocial/ Personal History: She lives at home. She is not . - Family History Father Medical History: Kidney disease Mother Medical History: Other (see notes) Notes: Epilepsy, chronic pain - Social History Smoking Status: Unknown if ever smoked Alcohol use: No CD- Drugs: No Caffeine use: Yes Place of Residence: Home Review of Systems Unremarkable Physical Examination Temp Pulse Resp BP Pulse Ox 99.0 F 75 18 119/66 04/04/20 10:26 04/04/20 10:26 04/04/20 10:26 04/04/20 10:26 General: Alert, In no apparent distress, Oriented x3, Cooperative HEENT: Atraumatic, Mucous membr. moist/pink Neck: Supple Respiratory: Clear to auscultation bilaterally, Normal air movement Cardiovascular: Normal pulses, Regular rate/rhythm Gastrointestinal: Normal bowel sounds, Soft and benign, Non-distended, No tenderness, No masses, No rebound, No guarding Musculoskeletal: No erythema, No tenderness, No warmth Integumentary: No tenderness/swelling, No erythema, No warmth, No cyanosis Neurological: Normal speech, Normal strength at 5/5 x4 extr, Normal tone, Normal affect Laboratory Data (last 24 hrs) 04/04/20 07:05: PT 12.0, INR 1.02 04/04/20 07:05: WBC 10.7 D, Hgb 12.2, Hct 38.0, Plt Count 260 D 04/04/20 07:05: Sodium 140, Potassium 3.4 L, BUN 22 H, Creatinine 0.80, Glucose 118 H, Magnesium 2.3, Total Bilirubin 0.4, AST 27, ALT 26, Alkaline Phosphatase 86 Conclusions/Impression: Impression: Shortness of breath related to increased stress at home. CAD with recent heart catheterization showing mild LAD disease Hypertension Hyperlipidemia HIV GERD with hiatal hernia Depression with anxiety Plan: Patient was evaluated for possible readmission. Upon further investigation patient mainly 1 and to come to the hospital to get away from increased stress at home. Daughter recently went on a trip. She left grandchildren with patient. She has been under a great deal of stress having a take care the 4 kids. At this time vital signs stable. No significant change since I disc harged her yesterday. I explained to the patient that she needed to continue with her medications. Recommend stress counseling. Recommended that the patient call the daughter to come back from the trip and take care of her children. Patient plans to have help in taking care of the children. Recommend psychiatric evaluation as an outpatient with stress counseling. No need for admission at this time. This was discussed with the ER physician. He agrees with plan of care. ER to discharge. Time Spent Managing Pts care (In Minutes): 55
== END 2020-04-04 11:12 | disposition home or self-care (01) ==
LOC: ER 06:36
DX: J44.1 Chronic obstructive pulmonary disease with (acute) exacerbation (principal); I51.7 Cardiomegaly; E66.09 Other obesity due to excess calories; E66.9 Obesity, unspecified; E87.6 Hypokalemia; B20 Human immunodeficiency virus [HIV] disease; Z72.0 Tobacco use; Z71.6 Tobacco abuse counseling; Z88.1 Allergy status to other antibiotic agents; Z88.8 Allergy status to other drugs, medicaments and biological substances
CPT/HCPCS: 87040 ×2; 85025; 80048; 36415; 83735; 85610; 80076; 84484; 83880; 71045; 96375; 96374; 99285; J2930; J2405

== ENCOUNTER 2020-04-07 00:40 | Observation (INO) | payer OTHER ==
--- OUTSIDE RECORDS SUMMARY | 2020-04-07 00:42 | XMS REPORT | Clinical Summary ---
:1955 Author Organization [facility] Address [address] [place] [address] Care Team Providers Name Role Phone Asked, [...] Telephone General Surgery Ramiro Mitchell MD after 04/07/2019 Surgical History Surgery Date Site/Laterality Comments ORTHOPEDIC SURGERY JOINT REPLACEMENT shoulder repla cement BREAST SURGERY cyst removed CHOLECYSTECTOMY APPENDECTOMY ARTHROPLASTY, SHOULDER, TOTAL 10/19/2016 Shoulder/Left Pr ocedure: REV. 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 Last Filed Vital Signs Not on file Plan of Treatment Date Type Specialty Care Team Description 04/07/2020 Office Visit Cardiothoracic Surgery Eliseo Glaser MD [address] [place], [place] [address] [phone] Health Maintenance Due Date Last Done Comments CERVICAL CANCER SCREENING 01/22/1977 BREAST CANCER SCREENING 01/22/2006 COLONOSCOPY SCREENING 01/22/2006 SHINGLES VACCINES (#1) 01/22/2006 INFLUENZA VACCINE 12/22/2019 Implants Implanted Type Area Historical Guide Device Shelf Model / Identifier Expiration Serial / Date Lot Versa-Dial/Comp Ti Std Taper Used W/25mm Glenoid Basplate - [id number] N/A: N/A [employer] 01/22/2026 [id number] / Implanted: Qty: 1 on 10/19/2016 by Austin Bowles MD at [facility] IMPLANT / DEVICES [id number] 41mm Comprehensive Reverse Shoulder Glenosphere Ba - [id number] I PM N/A: N/A [employer] 11/21/2023 [id number] / Implanted: Qty: 1 on 10/19/2016 by Austin Bowles MD at [facility] IMPLANT / DEVICES [id number] Arcom Xl 44-41 Std +3 Humeral Brg - [id number] IPM Left: [employer] 07/20/2017 XL [id number] / Implanted: Qty: 1 on 10/19/2016 by Austin Bowles MD at [facility] IMPLANT Shoulder / DEVICES [id number] Humeral Tray With Locking Ring +5 Left: [employer] 03/31/2026 [id number] / Implanted: Qty: 1 on 10/19/2016 by Austin Bowles MD at [facility] Shoulder / [id number] Results Not on fileafter 04/07/2019 Advance Directives For more information, please contact: [phone] Type Date Recorded 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
--- OUTSIDE RECORDS SUMMARY | 2020-04-07 00:42 | XMS REPORT | Continuity of Care Document ---
:1955 Author Organization [facility] t Address [address] [place] [address] Care Team Providers Name Role Phone Asked, Pcp Primary Care Physician Unavailable Provider Attending Clinician Curt Mitchell MD Attending Clinician DO SYL Attending Clinician Unavailable DO SYL Admitting Clinician Unavailable Payers Payer Name Policy Type Policy Effective Date Expiration Date Sour ce Number [facility] [id number] [place] COMPLETE 00:00:00 [employer] [id number] 2016- PresentHMO [facility] MEDICAIDUNITEDHC [id number] 2016 [place] COMM STAR+ 00:00:00 Sikhism [id number] 2016- PresentHMO Problems Condition Condition Condition Status Onset Resolution Last Treating Co mments Source Name Details Category Date Date Treatment Clinician Date S/p S/p Disease Active Meza reverse reverse 5 Method[facility] 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:00: 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 Unstable Unstable Disease Active [place] on reverse reverse 3 Methodi 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:00: 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 Allergies, Adverse Reactions, Alerts Allergy Allergy Status Severity Reaction(s) Onset Inactive Treating Comm ents Source Name Type Date Date Clinician Metoclop Propensi Active [place] r[place] ty to 5-04 Method[facility] Hcl adverse 00:00: st reaction 00 s to drug Codeine Propensi Active [place] ty to 3-10 [facility] adverse 00:00: st reaction 00 s to drug Family History Family Member Diagnosis Comments Start Date Stop Date Source Natural father Hypertension Derrick Jean Natural father Kidney disease Andreato n Sikhism Social History Social Habit Start Date Stop Date Quantity Comments Source Sex Assigned At [facility] ethodist Exposure to Not sure [place] Metho dist SARS-CoV-2 (event) Cigarettes smoked 2016-11-03 2016-11-03 [place] Sikhism current (pack per 00:00:00 00:00:00 day) - Reported Tobacco use and 2016-11-03 2016-11-03 Never used [facility] ethodist exposure 00:00:00 00:00:00 Alcohol intake 2016-11-03 2016-11-03 Current drinker [place] [facility]ism 00:00:00 00:00:00 of alcohol (finding) Alcohol Comment 2016-09-23 2016-09-23 rare [facility] ethodist 00:00:00 00:00:00 Smoking Status Start Date Stop Date Source Current every day smoker 2016-11-03 00:00:00 [place] [facility]ism Medications Ordered Filled Start Stop Current Ordering [...] 3-20 Methodi tablet 00:00: st 00 ISENTRESS 2017- Yes TK 1 T PO [place] 400 mg 3-18 BID [facility] tablet 00:00: st 00 Procedures This patient has no known procedures. Plan of Care Planned Activity Planned Date Details Comments Source Future Scheduled 2019-12-22 INFLUENZA VACCINE [place] [facility] Test 00:00:00 [code = INFLUENZA VACCINE] Future Scheduled 2006-01-22 BREAST CANCER [facility] thodist Test 00:00:00 SCREENING [code = BREAST CANCER SCREENING] Future Scheduled 2006-01-22 COLONOSCOPY SCREENING [place] [facility] Test 00:00:00 [code = COLONOSCOPY SCREENING] Future Scheduled 2006-01-22 SHINGLES VACCINES [place] [facility] Test 00:00:00 (#1) [code = SHINGLES VACCINES (#1)] Future Scheduled 1977-01-22 Screening for [facility] thodist Test 00:00:00 malignant neoplasm of cervix (procedure) [code = 199720655] Results Test Description Test Time Test Comments [...] (qualifier value) Not Detected N URINALYSIS WITH [id number] 10:57:00 Test Item Value Reference Range Interpretation Comments Color (test code = UCOLR) Dk. Yellow Clarity (test code = UCLAR) Hazy Glucose (test code = UGLUC) NEGATIVE NEGATIVE N Bilirubin (test code = UBILI) NEGATIVE NEGATIVE N Ketones (test code = UKET) NEGATIVE NEGATIVE N Specific [place] (test code = 1.025 1.005-1.030 A USPGR) [...]
[2020-04-07] MEDS ORDERED: METHYLPREDNISOLONE 125 MG INJ ONE (01:24)
[2020-04-07] MEDS ORDERED: ALBUTEROL 2.5 MG/3 ML NEB SOL ONE ×2 (01:24→03:46)
[2020-04-07] MEDS ORDERED: IPRATROPIUM BROM 0.5MG/2.5ML ONE ×2 (01:24→03:46)
[2020-04-07 02:15] LABS: Protime INR 1.03
[2020-04-07 02:21] LABS: Absolute Lymphocytes (CBC) 1.6 K/uL (0.7-4.9); Basophils % 0.2 % (0-1.3); Hematocrit 39.6 % (36.0-45.0); Lymphocytes % 8.6 % (15.3-44.8); RBC Red Blood Cell Count 5.01 M/uL (3.86-4.86)
[2020-04-07 02:31] LABS: ALT/SGPT 29 U/L (12-78); AST/SGOT 27 U/L (15-37); Albumin 3.3 g/dL (3.4-5.0); Alkaline Phosphatase 73 U/L (45-117); BUN Blood Urea Nitrogen 24 mg/dL (7-18); Bicarbonate 27 mmol/L (21-32); Bilirubin Direct 0.1 mg/dL (0-0.2); Bilirubin Total 0.4 mg/dL (0.2-1.0); Glucose Level 140 mg/dL (74-106); Magnesium 2.1 mg/dL (1.8-2.4); NT PRO-BNP 890 pg/mL (<125); Potassium 3.6 mmol/L (3.5-5.1); Protein, Total 7.5 g/dL (6.4-8.2); Sodium Level 141 mmol/L (136-145); Troponin (Emerg Dept Use Only) < 0.02 ng/mL (0.0-0.045)
--- NOTE | 2020-04-07 03:49 | EDPHYS ---
Physician Documentation [facility] Name: Marjan Fleming Age: 65 yrs Sex: Female : 1955 Arrival Date: 04/07/2020 Time: 00:42 Bed 17 Private MD: Lele Rahman H ED Physician Prem Garcia HPI: 04/07 01:36 This 65 yrs old Female presents to ER via EMS with complaints of Shortness Of mh7 Breath. 01:36 The patient has shortness of breath at rest. mh7 01:38 Onset: The symptoms/episode began/occurred yesterday. Duration: The symptoms are mh7 continuous, and are unchanged since they started. The patient's shortness of breath is aggravated by coughing, is alleviated by nothing. Associated signs and symptoms: Pertinent positives: productive cough, hemoptysis, Pertinent negatives: chest pain, diaphoresis, dizziness, fever, loss of consciousness, nausea, numbness in extremities, visual changes, vomiting. Severity of symptoms: At their worst the symptoms were moderate yesterday, in the emergency department the symptoms have improved mildly. The patient has experienced similar episodes in the past, multiple times. Historical: - Allergies: 00:46 Bactrim DS; sg 00:46 metoclopramide HCl; sg 00:46 Stadol; sg - Home Meds: 07:43 BuSpar 10 mg BID Oral [Active]; Descovy 200-25 mg Oral tab 1 tab once daily [Active]; em Hydralazine Oral [Active]; lisinopril 40 mg Oral tab 1 tab twice a day [Active]; Metformin Oral [Active]; metoprolol tartrate 100 mg Oral tab 1 tab 2 times per day [Active]; Norvasc Oral [Active]; raltegravir Oral 1 tab 2 times per day [Active]; sertraline Oral [Active]; - PMHx: 00:46 Anxiety; Atrial Fib; Bipolar disorder; COPD; Chronic pain; esophageal varices; sg Hepatitis; HIV; Hypertension; Migraines; Panic Attacks; - PSHx: 00:46 Cholecystectomy; Appendectomy; Cardiac Cath; sg - Immunization history:: Adult Immunizations up to date. - Social history:: Smoking status: Patient reports the use of cigarette tobacco products. ROS: 01:38 Constitutional: Negative for fever, chills, and weight loss, Eyes: Negative for injury, mh7 pain, redness, and discharge, ENT: Negative for injury, pain, and discharge, Neck: Negative for injury, pain, and swelling, Cardiovascular: Negative for chest pain, palpitations, and edema, Abdomen/GI: Negative for abdominal pain, nausea, vomiting, diarrhea, and constipation, Back: Negative for injury and pain, : Negative for injury, bleeding, discharge, and swelling, MS/Extremity: Negative for injury and deformity, Skin: Negative for injury, rash, and discoloration, Neuro: Negative for headache, weakness, numbness, tingling, and seizure, Psych: Negative for depression, anxiety, suicide ideation, homicidal ideation, and hallucinations, Allergy/Immunology: Negative for hives, rash, and allergies, Endocrine: Negative for neck swelling, polydipsia, polyuria, polyphagia, and marked weight changes, Hematologic/Lymphatic: Negative for swollen nodes, abnormal bleeding, and unusual bruising. Exam: 01:38 Head/Face: Normocephalic, atraumatic. Eyes: Pupils equal round and reactive to light, mh7 extra-ocular motions intact. Lids and lashes normal. Conjunctiva and sclera are non-icteric and not injected. Cornea within normal limits. Periorbital areas with no swelling, redness, or edema. Neck: Trachea midline, no thyromegaly or masses palpated, and no cervical lymphadenopathy. Supple, full range of motion without nuchal rigidity, or vertebral point tenderness. No Meningismus. Chest/axilla: Normal chest wall appearance and motion. Nontender with no deformity. No lesions are appreciated. Cardiovascular: Regular rate and rhythm with a normal S1 and S2. No gallops, murmurs, or rubs. Normal PMI, no JVD. No pulse deficits. 01:38 Abdomen/GI: Soft, non-tender, with normal bowel sounds. No distension or tympany. No guarding or rebound. No evidence of tenderness throughout. Back: No spinal tenderness. No costovertebral tenderness. Full range of motion. Skin: Warm, dry with normal turgor. Normal color with no rashes, no lesions, and no evidence of cellulitis. MS/ Extremity: Pulses equal, no cyanosis. Neurovascular intact. Full, normal range of motion. Neuro: Awake and alert, GCS 15, oriented to person, place, time, and situation. Cranial nerves II-XII grossly intact. Motor strength 5/5 in all extremities. Sensory grossly intact. Cerebellar exam normal. Normal gait. Psych: Awake, alert, with orientation to person, place and time. Behavior, mood, and affect are within normal limits. 01:38 Constitutional: The patient appears in no acute distress, alert, awake, uncomfortable. 01:38 Respiratory: the patient does not display signs of respiratory distress, Respirations: prolonged exhalation, that is mild, Breath sounds: rhonchi, that are mild, are scattered, wheezing: expiratory that is mild, is scattered. Vital Signs: 00:42 BP 182 / 96; Pulse 84; Resp 16; Temp 98.4; Pulse Ox 96% on R/A; sg 01:56 BP 166 / 93; Pulse 80; Resp 18; Pulse Ox 98% on 2 lpm NC; ea 07:43 BP 114 / 69; Pulse 81; Resp 18; Pulse Ox 95% on R/A; em MDM: 03:47 Differential diagnosis: Anemia Anxiety Reaction asthma, Bronchitis CHF exacerbation, 7 Chronic Obstructive Pulmonary Disease Myocardial Infarction pneumonia, pulmonary edema, reactive airway disease. Data reviewed: vital signs, nurses notes. Data interpreted: Pulse oximetry: on 3L(s) per nasal canula, is 98 %. Interpretation: acceptable. Counseling: I had a detailed discussion with the patient and/or guardian regarding: the historical points, exam findings, and any diagnostic results supporting the discharge/admit diagnosis, the presence of at least one elevated blood pressure reading (>120/80) during this emergency department visit, lab results, radiology results, the need for further work-up and treatment in the hospital. 03:47 Response to treatment: the patient's symptoms have mildly improved after treatment. [facility] 03:48 Patient medically screened. [facility] 04/07 01:01 Order name: Basic Metabolic Panel; Complete Time: 02:34 04/07 01:01 Order name: CBC with Diff 04/07 01:01 Order name: LFT's; Complete Time: 02:34 04/07 01:01 Order name: Magnesium; Complete Time: 02:34 04/07 01:01 Order name: NT PRO-BNP; Complete Time: 02:34 04/07 01:01 Order name: PT-INR; Complete Time: 02:34 04/07 01:01 Order name: Troponin (emerg Dept Use Only); Complete Time: 02:34 04/07 01:01 Order name: XRAY Chest (1 view) 04/07 01:01 Order name: Flu; Complete Time: 02:03 04/07 02:38 Order name: Manual Differential EDMS 04/07 03:41 Order name: Blood Culture Adult (2) wi1 04/07 03:41 Order name: Procalcitonin [facility] 04/07 03:42 Order name: COVID-19 [facility] 04/07 06:40 Order name: SARS-COV-2 RT PCR EDIL 04/07 01:01 Order name: EKG; Complete Time: 01:02 04/07 01:01 Order name: Cardiac monitoring; Complete Time: 01:24 04/07 01:01 Order name: EKG - Nurse/Tech; Complete Time: 01:24 04/07 01:01 Order name: IV Saline Lock; Complete Time: 01:44 04/07 01:01 Order name: Labs collected and sent; Complete Time: :44 04/07 01:01 Order name: O2 Per Protocol; Complete Time: 01:24 04/07 01:01 Order name: O2 Sat Monitoring; Complete Time: 01:24 04/07 05:21 Order name: Misc. Order: T/O with 100% readback from [facility] to draw labs from foot; Complete Time: 05:21 Administered Medications: 01:24 Drug: Albuterol - atroVENT (3:1) (2.5 mg - 0.5 mg) 3 ml Route: Nebulizer; ea 02:00 Follow up: Response: No adverse reaction ea 01:44 Drug: SOLU-Medrol 125 mg Route: IVP; Site: left forearm; ea 02:00 Follow up: Response: No adverse reaction ea 03:35 Drug: Albuterol - atroVENT (3:1) (2.5 mg - 0.5 mg) 3 ml Route: Nebulizer; ea 05:44 Follow up: Response: No adverse reaction ea 05:43 Drug: Rocephin 1 grams Route: IV; Rate: calculated rate; Site: left forearm; ea 07:07 Follow up: Response: No adverse reaction; IV Status: Completed infusion; IV Intake: 10mlem Disposition: 04/07/20 03:48 Hospitalization ordered by Liz Qureshi for Observation. Preliminary diagnosis is COPD Exacerbation. - Bed requested for Telemetry/MedSurg (observation). - Status is Observation. em - Condition is Stable. - Problem is an acute exacerbation. - Symptoms have improved. Signatures: Dispatcher [employer] EDSamson Hightower RN RN Venu Ortega RN RN em Garcia, Cindy, RN RN Gregoria Madison RN RN ea Holmes, Maurice, MD MD mh7 Corrections: (The following items were deleted from the chart) 06:37 03:48 Hospitalization Ordered by Liz Qureshi MD for Observation. Preliminary cg diagnosis is COPD Exacerbation. Bed requested for Telemetry/MedSurg (observation). Status is Observation. Condition is Stable. Problem is an acute exacerbation. Symptoms have improved. mh7 07:57 06:37 04/07/2020 03:48 Hospitalization Ordered by Liz Qureshi MD for Observation. em Preliminary diagnosis is COPD Exacerbation. Bed requested for Telemetry/MedSurg (observation). Status is Observation. Condition is Stable. Problem is an acute exacerbation. Symptoms have improved. cg
--- NOTE | 2020-04-07 03:49 | ER ---
Nurse's Notes [facility] Name: Marjan Fleming Age: 65 yrs Sex: Female : 1955 Arrival Date: 04/07/2020 Time: 00:42 Bed 17 Private MD: Lele Rahman H Diagnosis: COPD Exacerbation Presentation: 04/07 00:42 Chief complaint: EMS states: pt complaining of shortness of breath, with cough that has sg pink sputum, pt reports recently having a Cardiac Cath, they entered into the right wrist, pt states having been seen yesterday for similar complaints. Coronavirus screen: Client denies travel out of the [place] in the last 14 days. At this time, the client does not indicate any symptoms associated with coronavirus-19. Ebola Screen: Patient negative for fever greater than or equal to 101.5 degrees Fahrenheit, and additional compatible Ebola Virus Disease symptoms Patient denies exposure to infectious person. Patient denies travel to an Ebola-affected area in the 21 days before illness onset. No symptoms or risks identified at this time. Initial Sepsis Screen: Does the patient meet any 2 criteria? No. Patient's initial sepsis screen is negative. Does the patient have a suspected source of infection? No. Patient's initial sepsis screen is negative. Risk Assessment: Do you want to hurt yourself or someone else? Patient reports no desire to harm self or others. Onset of symptoms was April 07, 2020. Care prior to arrival: IV initiated. 20 GA, in the right forearm. Transition of care: patient was not received from another setting of care. 00:42 Method Of Arrival: EMS: [facility] sg 00:42 Acuity: BLAYNE 3 sg Triage Assessment: 00:47 General: Appears uncomfortable, Behavior is appropriate for age. Pain: Denies pain. ea Neuro: Level of Consciousness is awake, alert, obeys commands, Oriented to person, place, time. Cardiovascular: Patient's skin is warm and dry. Respiratory: Reports shortness of breath Onset: The symptoms/episode began/occurred today, the patient has mild shortness of breath. Derm: Skin is pink, warm \T\ dry. Historical: - Allergies: 00:46 Bactrim DS; sg 00:46 metoclopramide HCl; sg 00:46 Stadol; sg - Home Meds: 07:43 BuSpar 10 mg BID Oral [Active]; Descovy 200-25 mg Oral tab 1 tab once daily [Active]; em Hydralazine Oral [Active]; lisinopril 40 mg Oral tab 1 tab twice a day [Active]; Metformin Oral [Active]; metoprolol tartrate 100 mg Oral tab 1 tab 2 times per day [Active]; Norvasc Oral [Active]; raltegravir Oral 1 tab 2 times per day [Active]; sertraline Oral [Active]; - PMHx: 00:46 Anxiety; Atrial Fib; Bipolar disorder; COPD; Chronic pain; esophageal varices; sg Hepatitis; HIV; Hypertension; Migraines; Panic Attacks; - PSHx: 00:46 Cholecystectomy; Appendectomy; Cardiac Cath; sg - Immunization history:: Adult Immunizations up to date. - Social history:: Smoking status: Patient reports the use of cigarette tobacco products. Screenin:47 Abuse screen: Denies threats or abuse. Nutritional screening: No deficits noted. ea Tuberculosis screening: No symptoms or risk factors identified. Fall Risk None identified. Assessment: 00:48 Reassessment: see triage assessment. ea 00:48 Cardiovascular: Rhythm is sinus rhythm. Respiratory: Airway is patent Respiratory ea effort is even, unlabored, Respiratory pattern is regular, symmetrical, Breath sounds with wheezes. 01:54 Reassessment: Patient and/or family updated on plan of care and expected duration. Pain ea level reassessed. Patient is alert, oriented x 3, equal unlabored respirations, skin warm/dry/pink. IV initiated, unable to draw blood, phlebotomy at bedside attempting to draw blood at this time. 02:00 Reassessment: Patient and/or family updated on plan of care and expected duration. Pain ea level reassessed. Patient is alert, oriented x 3, equal unlabored respirations, skin warm/dry/pink. 05:00 Reassessment: pt is complaining of having warmness to the face and neck, ice pack sg applied to neck, cool cloth applied to the forehead, pt eating ice at this time, pt reports feels better. 05:51 Reassessment: Patient and/or family updated on plan of care and expected duration. Pain ea level reassessed. Patient is alert, oriented x 3, equal unlabored respirations, skin warm/dry/pink. Awaiting on covid results. 07:44 Reassessment: Patient appears in no apparent distress at this time. Patient and/or em family updated on plan of care and expected duration. Pain level reassessed. Patient is alert, oriented x 3, equal unlabored respirations, skin warm/dry/pink. Vital Signs: 00:42 BP 182 / 96; Pulse 84; Resp 16; Temp 98.4; Pulse Ox 96% on R/A; sg 01:56 BP 166 / 93; Pulse 80; Resp 18; Pulse Ox 98% on 2 lpm NC; ea 07:43 BP 114 / 69; Pulse 81; Resp 18; Pulse Ox 95% on R/A; em ED Course: 00:42 Patient arrived in ED. sg 00:42 Lele Rahman DO is Private Physician. sg 00:42 Arm band placed on. sg 00:44 Triage completed. sg 00:47 Gregoria Madison, ASHLEY is Primary Nurse. ea 00:47 Prem Garcia MD is Attending Physician. [facility] 00:49 Patient has correct armband on for positive identification. Bed in low position. Call ea light in reach. Side rails up X2. 01:45 Inserted saline lock: 24 gauge in left forearm, using aseptic technique. ea 01:50 XRAY Chest (1 view) In Process Unspecified. EDMS 03:48 Liz Qureshi MD is Hospitalizing Provider. [facility] 05:45 No provider procedures requiring assistance completed. Patient admitted, IV remains in ea place. Administered Medications: 01:24 Drug: Albuterol - atroVENT (3:1) (2.5 mg - 0.5 mg) 3 ml Route: Nebulizer; ea 02:00 Follow up: Response: No adverse reaction ea 01:44 Drug: SOLU-Medrol 125 mg Route: IVP; Site: left forearm; ea 02:00 Follow up: Response: No adverse reaction ea 03:35 Drug: Albuterol - atroVENT (3:1) (2.5 mg - 0.5 mg) 3 ml Route: Nebulizer; ea 05:44 Follow up: Response: No adverse reaction ea 05:43 Drug: Rocephin 1 grams Route: IV; Rate: calculated rate; Site: left forearm; ea 07:07 Follow up: Response: No adverse reaction; IV Status: Completed infusion; IV Intake: 10mlem Intake: 07:07 IV: 10ml; Total: 10ml. em Outcome: 03:48 Decision to Hospitalize by Provider. anthony 05:45 Instructed on the need for admit, Demonstrated understanding of instructions. dave 07:44 Admitted to Med/surg accompanied by tech, via wheelchair, room 205, with chart, Report em called to SAHLEY CONLEY 07:44 Condition: stable 07:57 Patient left the ED. em Signatures: Dispatcher [employer] Samson Martin, RN Venu Dietz RN RN em Antunez, Elena, RN RN ea Holmes, Maurice, MD MD 7
--- NOTE | 2020-04-07 04:03 | P.HP ---
Certification for Inpatient Patient admitted to: Observation With expected LOS: <2 Midnights Patient will require the following post-hospital care: None Practitioner: I am a practitioner with admitting privileges, knowledge of patient current condition, hospital course, and medical plan of care. Services: Services provided to patient in accordance with Admission requirements found in Title 42 Section 412.3 of the Code of Federal Regulations <Jimi Tomlinson - Last Filed: 04/07/20 03:59> Patient History Date of Service: 04/07/20 Primary Care Provider: Dr. Rahman, Dr. Sosa Reason for admission: COPD exacerbation History of Present Illness: 65-year-old female with history of COPD, asthma, atrial fibrillation not on anticoagulation therapy, hypertension, cirrhosis of the liver secondary to chronic hepatitis-C presents emergency department for shortness of breath. Patient reports that she has been feeling short of breath over the course of the last 2 weeks. Patient reports fever up to 101.2 that started yesterday with increased sputum production over the course of the last 2 days. Patient was evaluated in the emergency department, labs significant for elevated white blood cell count 18.3, elevated BNP 890. Patient with moderate expiratory wheezing on exam refractory to 2 rounds of breathing treatments and IV steroids. Chest x- ray without acute findings. ED provider wishes to admit patient under observation for further evaluation and management. When I saw the patient in the emergency department she is awake, alert, oriented x3. Patient in mild respiratory distress, tachypneic. Patient does not appear septic at this time. Will be admitted for further evaluation and management. - Past Medical/Surgical History Diabetic: No -: HIV diag ~ [address] Yohan Cardenas in [place] -: CAD -: Bipolar disorder Dr Krause in [place] -: Hypertension -: COPD -: Tobacco abuse -: Alcohol abuse -: Anemia likely of chronic disease -: Hyperlipidemia -: GERD with hiatal hernia -: Appendectomy -: Cholecystectomy -: left shoulder rotated cuff -: Right foot repair -: Right shoulder replacement -: left shoulder rotated cuff Psychosocial/ Personal History: She lives at home. She is not . - Family History Father -: Kidney disease Mother -: Other (see notes) Notes: Epilepsy, chronic pain - Social History Smoking Status: Current every day smoker Counseled patient to stop smoking for: less than 10 minutes Smoking therapy provided: Yes Alcohol use: No CD- Drugs: No Caffeine use: Yes Place of Residence: Home <Jimi Tomlinson - Last Filed: 04/07/20 03:59> Date of Service: 04/07/20 <Liz Qureshi - Last Filed: 04/08/20 07:57> Allergies fentanyl Allergy (Severe, Verified 02/03/20 00:08) Hives butorphanol tartrate [From Stadol] Allergy (Verified 02/03/20 00:08) confusion metoclopramide HCl [From Reglan] Allergy (Verified 02/03/20 00:08) Shortness of breath sulfamethoxazole [From Bactrim] Allergy (Verified 02/03/20 00:08) Hives/Rash trimethoprim [From Bactrim] Allergy (Verified 02/03/20 00:08) Hives/Rash Bactrim DS Allergy (Intermediate, Uncoded 02/03/20 00:08) Nausea/Vomiting Home Medications: Raltegravir Potassium [Isentress] 400 mg PO BID 02/28/12 Lorazepam [Ativan] 2 mg PO BID* PRN 04/02/12 Sertraline [Zoloft*] 200 mg PO DAILY 09/15/12 Emtricitabine/Tenofov Alafenam [Descovy 200-25 mg Tablet] 1 tab PO BEDTIME 10/05/16 Esomeprazole Mag Trihydrate [Nexium] 40 mg PO BID 06/18/19 Triamterene/Hydrochlorothiazid [Triamterene-Hctz 37.5-25 mg Cp] 1 each PO DAILY 06/18/19 Metoprolol Tartrate 100 mg PO BID #60 tablet 02/03/20 Albuterol Inhaler [Ventolin Inhaler*] 2 puff IH Q6H PRN #1 hfa.aer.ad 04/02/20 Budesonide/Formoterol Fumarate [Symbicort 160-4.5 Mcg Inhaler] 2 puff IH BID #1 hfa.aer.ad 04/02/20 predniSONE [Prednisone*] 20 mg PO SEECOM #15 tab 04/02/20 Hydralazine HCl 50 mg PO BID #60 04/03/20 Cetirizine HCl [Zyrtec] 10 mg PO DAILY #30 tab.rapdis 04/07/20 Montelukast Sodium [Singulair] 10 mg PO DAILY #30 tablet 04/07/20 levoFLOXacin [Levaquin*] 500 mg PO DAILY #5 tab 04/07/20 lisinopriL [Prinivil*] 40 mg PO BID 04/07/20 Review of Systems 10-point ROS is otherwise unremarkable Respiratory: Cough, Shortness of Breath, Sputum, As per HPI <Jimi Tomlinson - Last Filed: 04/07/20 03:59> Physical Examination - Physical Exam General: Alert, In no apparent distress HEENT: Atraumatic, PERRLA, Mucous membr. moist/pink Neck: Supple, 2+ carotid pulse no bruit, No LAD Respiratory: Expiratory wheezes (Mild, bilateral), Other (Give me a) Cardiovascular: Regular rate/rhythm, Normal S1 S2 Gastrointestinal: Normal bowel sounds, No tenderness Musculoskeletal: No tenderness Integumentary: No rashes Neurological: Normal gait, Normal speech, Normal strength at 5/5 x4 extr, Normal tone, Normal affect - Studies Laboratory Data (last 24 hrs) 04/07/20 01:58: PT 12.1, INR 1.03 04/07/20 01:58: WBC 18.3 H D, Hgb 12.6, Hct 39.6, Plt Count 195 D 04/07/20 01:58: Sodium 141, Potassium 3.6, BUN 24 H, Creatinine 0.94, Glucose 14 0 H, Magnesium 2.1, Total Bilirubin 0.4, AST 27, ALT 29, Alkaline Phosphatase 73 Microbiology Data (last 24 hrs): 04/07/20 01:05 Nasopharnyx Influenza Type A Antigen Screen - Final 04/07/20 01:05 Nasopharnyx Influenza Type B Antigen Screen - Final <Jimi Tomlinson - Last Filed: 04/07/20 03:59> Assessment and Plan - Plan Assessment COPD exacerbation Atrial fibrillation not on anticoagulation therapy Cirrhosis of the liver secondary to chronic hepatitis-C Hypertension Tobacco abuse Plan COPD exacerbation: Blood culture and sputum cultures obtained, continue with IV steroids, IV antibiotics at this time. Pulmonology consult in place. Oxygen as needed. Discussed need for tobacco cessation. Scheduled nebs. DVT prophylaxis Lovenox 40 mg subcutaneous once daily. Atrial fibrillation not on anticoagulation therapy: Patient reports that she is not on any anti coagulation therapy, suspect this is due to cirrhosis of liver. May need to be adjusted by PCP. Cirrhosis of the liver secondary to chronic hepatitis-C: Appears stable at this time. Hypertension: Obtain and continue home meds. Tobacco abuse: Discussed need for tobacco cessation, provide patient with Nicoderm patch. Discharge Plan: Home Plan to discharge in: 24 Hours - Advance Directives Does patient have a Living Will: No Does patient have a Durable POA for Healthcare: Yes - Code Status/Comfort Care Code Status Assessed: Yes (Full code) Critical Care: No Time Spent Managing Pts Care (In Minutes): 55 <Jimi Tomlinson - Last Filed: 04/07/20 03:59> Date of Service: 04/07/20 Chart has been reviewed and physical exam has been reviewed. Agree with plans above. Will continue with current treatment for the COPD and anticipate discharge over the next 24hrs as long as patient continues to improve. <Liz Qureshi - Last Filed: 04/08/20 07:57>
[2020-04-07 04:42] LABS: Blood Morphology Comment NOTED (NOT SEEN); Ovalocytes 2+; Platelet Estimate ADEQ; Polychromasia 1+
[2020-04-07] MEDS ORDERED: LORazepam 2 MG/ML VIAL IV ONE (05:31)
[2020-04-07] MEDS ORDERED: LORazepam 2 MG/ML VIAL ONE (05:47)
[2020-04-07] MEDS ORDERED: CEFTRIAXONE/SWI 1gm 1 GM/10 ML SYR ONE (05:48)
[2020-04-07] MEDS ORDERED: ACETAMINOPHEN 500 MG TAB PO PRN (08:09)
[2020-04-07] MEDS ORDERED: ONDANSETRON 4 MG/2 ML VIAL IV PRN (08:09)
--- NOTE | 2020-04-07 08:12 | RAD REPORT ---
EXAM DESCRIPTION: Patrick Single View04/07/2020 1:49 am CLINICAL HISTORY: Shortness of breath COMPARISON: April 04 : The lungs appear clear of acute infiltrate. The heart is nor the mal size IMPRESSION: No acute abnormalities displayed
[2020-04-07 08:29] VITALS: O2SAT 95
[2020-04-07 08:47] VITALS: BMI 31.7
[2020-04-07] MEDS ORDERED: NICOTINE 21 MG/PAT TD SCH (09:00)
[2020-04-07] MEDS ORDERED: METHYLPREDNISOLONE 125 MG INJ IV SCH (09:00)
[2020-04-07] MEDS ORDERED: ENOXAPARIN 40 MG/0.4 ML SQ SCH (09:00)
[2020-04-07] MEDS ORDERED: CEFTRIAXONE 1 GM/NS 50 ML 1 GM/50 ML BAG IV SCH (09:00)
[2020-04-07] MEDS: ALBUTEROL 2.5 MG/3 ML NEB SOL NEB SCH ×2 (09:36→13:55)
[2020-04-07] MEDS: IPRATROPIUM BROM 0.5MG/2.5ML NEB SCH ×2 (09:36→13:55)
[2020-04-07] MEDS ORDERED: POTASSIUM CL SA 10 MEQ TAB PO ONE ×3 (10:00→13:00)
[2020-04-07 11:42] LABS: Absolute Lymphocytes (CBC) 0.9 K/uL (0.7-4.9); Basophils % 0.2 % (0-1.3); Hematocrit 33.7 % (36.0-45.0); Lymphocytes % 5.6 % (15.3-44.8); MPV 7.9 fL (7.6-11.3); RBC Red Blood Cell Count 4.26 M/uL (3.86-4.86)
[2020-04-07 11:57] LABS: Potassium 3.2 mmol/L (3.5-5.1)
[2020-04-07 12:41] LABS: Blood Morphology Comment NOT SEEN (NOT SEEN); Platelet Estimate ADEQ
[2020-04-07] MEDS ORDERED: ARFORMOTEROL TARTRATE 15 MCG/2 ML VIAL.NEB NEB SCH (12:42)
[2020-04-07] MEDS ORDERED: SPIRONOLACTONE 25 MG TABLET PO SCH (12:46)
--- NOTE | 2020-04-07 12:47 | P.PN ---
Subjective Date of Service: 04/07/20 Primary Care Provider: Dr. Rahman, Dr. Sosa Chief Complaint: COPD exacerbation A patient is 65 years of age with a history of COPD Ms. sick over the past 2 weeks worsening shortness of breath chest congestion complaining of some hemoptysis not feeling any better please add in her face feels flushed Review of Systems 10-point ROS is otherwise unremarkable General: Weakness Respiratory: Cough, Shortness of Breath Physical Examination - Vital Signs Temperature: 96.9 F Blood Pressure: 134/65 Pulse: 76 Respirations: 20 Pulse Ox (%): 95 - Physical Exam General: Alert, Oriented x3, Moderate distress Respiratory: Expiratory wheezes Cardiovascular: No edema, Normal S1 S2 Gastrointestinal: Normal bowel sounds, Soft and benign - Studies Laboratory Data (last 24 hrs) 04/07/20 01:58: PT 12.1, INR 1.03 04/07/20 01:58: WBC 18.3 H D, Hgb 12.6, Hct 39.6, Plt Count 195 D 04/07/20 01:58: Sodium 141, Potassium 3.6, BUN 24 H, Creatinine 0.94, Glucose 140 H, Magnesium 2.1, Total Bilirubin 0.4, AST 27, ALT 29, Alkaline Phosphatase 73 Microbiology Data (last 24 hrs): 04/07/20 01:05 Nasopharnyx Influenza Type A Antigen Screen - Final 04/07/20 01:05 Nasopharnyx Influenza Type B Antigen Screen - Final Assessment & Plan - Problems (Diagnosis) (1) COPD exacerbation Current Visit: No Status: Acute Plan: Patient is 65 years of age admitted with COPD exacerbation she is compliant with it inhalers at home continue with steroids exchange architect to p.o. levofloxacin chest x-rays clear vital signs are all stable oxygenation satisfactory patient is patient is on high doses of Devin inhibitors be contributing to her symptoms change to levofloxacin had a low-dose spironolactone patient has had hepatitis-C on treatment
--- NOTE | 2020-04-07 12:49 | P.CNS ---
Date of Consult: 04/07/20 Primary Care Provider: Dr. Rahman, Dr. Sosa Chief Complaint: COPD exacerbation History of Present Illness: A patient is 65 years of age with a history of COPD Ms. sick over the past 2 weeks worsening shortness of breath chest congestion complaining of some h emoptysis not feeling any better please add in her face feels flushed Allergies fentanyl Allergy (Severe, Verified 02/03/20 00:08) Hives butorphanol tartrate [From Stadol] Allergy (Verified 02/03/20 00:08) confusion metoclopramide HCl [From Reglan] Allergy (Verified 02/03/20 00:08) Shortness of breath sulfamethoxazole [From Bactrim] Allergy (Verified 02/03/20 00:08) Hives/Rash trimethoprim [From Bactrim] Allergy (Verified 02/03/20 00:08) Hives/Rash Bactrim DS Allergy (Intermediate, Uncoded 02/03/20 00:08) Nausea/Vomiting Home Medications: Raltegravir Potassium [Isentress] 400 mg PO BID 02/28/12 Lorazepam [Ativan] 2 mg PO BID* PRN 04/02/12 Sertraline [Zoloft*] 200 mg PO DAILY 09/15/12 Emtricitabine/Tenofov Alafenam [Descovy 200-25 mg Tablet] 1 tab PO BEDTIME 10/05/16 Esomeprazole Mag Trihydrate [Nexium] 40 mg PO BID 06/18/19 Triamterene/Hydrochlorothiazid [Triamterene-Hctz 37.5-25 mg Cp] 1 each PO DAILY 06/18/19 Metoprolol Tartrate 100 mg PO BID #60 tablet 02/03/20 Albuterol Inhaler [Ventolin Inhaler*] 2 puff IH Q6H PRN #1 hfa.aer.ad 04/02/20 Budesonide/Formoterol Fumarate [Symbicort 160-4.5 Mcg Inhaler] 2 puff IH BID #1 hfa.aer.ad 04/02/20 predniSONE [Prednisone*] 20 mg PO SEECOM #15 tab 04/02/20 Hydralazine HCl 50 mg PO BID #60 04/03/20 levoFLOXacin [Levaquin*] 500 mg PO DAILY #5 tab 04/07/20 lisinopriL [Prinivil*] 40 mg PO BID 04/07/20 - Past Medical/Surgical History Diabetic: No -: HIV diag ~ [address] Yohan Cardenas in [place] -: CAD -: Bipolar disorder Dr Krause in [place] -: Hypertension -: COPD -: Tobacco abuse -: Alcohol abuse -: Anemia likely of chronic disease -: Hyperlipidemia -: GERD with hiatal hernia -: Appendectomy -: Cholecystectomy -: left shoulder rotated cuff -: Right foot repair -: Right shoulder replacement -: left shoulder rotated cuff Psychosocial/ Personal History: She lives at home. She is not . - Family History Father Medical History: Kidney disease Mother Medical History: Other (see notes) Notes: Epilepsy, chronic pain - Social History Smoking Status: Unknown if ever smoked Alcohol use: No CD- Drugs: No Caffeine use: Yes Place of Residence: Home Review of Systems 10-point ROS is otherwise unremarkable General: Weakness Respiratory: Cough, Shortness of Breath, Hemoptysis Physical Examination Temp Pulse Resp BP Pulse Ox 96.9 F 76 20 134/65 95 04/07/20 08:00 04/07/20 08:00 04/07/20 08:00 04/07/20 08:00 04/07/20 08:00 General: Alert, Moderate distress Neck: Supple Respiratory: Expiratory wheezes Cardiovascular: No edema, Normal S1 S2 Gastrointestinal: Normal bowel sounds, Soft and benign Musculoskeletal: No clubbing, No contractures Laboratory Data (last 24 hrs) 04/07/20 01:58: PT 12.1, INR 1.03 04/07/20 01:58: WBC 18.3 H D, Hgb 12.6, Hct 39.6, Plt Count 195 D 04/07/20 01:58: Sodium 141, Potassium 3.6, BUN 24 H, Creatinine 0.94, Glucose 140 H, Magnesium 2.1, Total Bilirubin 0.4, AST 27, ALT 29, Alkaline Phosphatase 73 - Problems (1) COPD exacerbation Current Visit: No Status: Acute Plan: Patient is 65 years of age admitted with COPD exacerbation complaining of hemoptysis I have added Brovana maximize bronchodilator therapy reduce dose of the Solu-Medrol complaining of flushing of her face disaster recovery consultant to p.o. levofloxacin Dc IV ceftriaxone a coughing may be related to the GREG-inhibitor I recommend stopping it at low-dose spironolactone patient has hepatitis-C on treatment chest x-rays clear labs reviewed sputum cultures pending vital signs oxygenation satisfactory patient has Symbicort and Ventolin at home
[2020-04-07 13:08] VITALS: BP 141/74
[2020-04-07 14:23] VITALS: TEMP 97
[2020-04-07] MEDS ORDERED: METHYLPREDNISOLONE 40 MG INJ IV SCH (17:00)
--- NOTE | 2020-04-08 08:00 | P.DS ---
Discharge Date: 04/08/20 Primary Care Provider: Dr. Rahman, Dr. Sosa Disposition: ROUTINE DISCHARGE Discharge Condition: GOOD Reason for Admission: COPD exacerbation Consultations: Pulmonary Brief History of Present Illness: Patient is a 65-year-old who came to the hospital with COPD. Patient was given nebs, steroids, and antibiotics. Patient was clinically feeling better. We have reviewed consultation and plan is to discontinue GREG-inhibitor and continue inhaler therapy at home. Will leave her a prescription for Brovana. Hopefully her insurance will cover it. At this time patient is clinically doing well. Hospital Course: Plan is for patient to follow with Pulmonary. Continue with current treatment as mentioned above. Patient was observation stay and was feeling better. She will be discharge with outpatient follow-up. Vital Signs/Physical Exam: Temp Pulse Resp BP Pulse Ox 97.0 F 73 18 141/74 H 95 04/07/20 12:00 04/07/20 13:08 04/07/20 12:00 04/07/20 13:08 04/07/20 12:00 General: Alert, In no apparent distress, Oriented x3 Laboratory Data at Discharge: WBC 15.6 K/uL (4.3-10.9) H D 04/07/20 11:16 Hgb 10.9 g/dL (12.0-15.0) L 04/07/20 11:16 Hct 33.7 % (36.0-45.0) L 04/07/20 11:16 Plt Count 215 K/uL (152-406) 04/07/20 11:16 PT 12.1 SECONDS (9.5-12.5) 04/07/20 01:58 INR 1.03 04/07/20 01:58 Sodium 142 mmol/L (136-145) 04/07/20 11:16 Potassium Cancelled 04/07/20 19:00 BUN 27 mg/dL (7-18) H 04/07/20 11:16 Creatinine 0.94 mg/dL (0.55-1.3) 04/07/20 11:16 Glucose 220 mg/dL (74-106) H 04/07/20 11:16 Magnesium 2.1 mg/dL (1.8-2.4) 04/07/20 01:58 Total Bilirubin 0.4 mg/dL (0.2-1.0) 04/07/20 01:58 AST 27 U/L (15-37) 04/07/20 01:58 ALT 29 U/L (12-78) 04/07/20 01:58 Alkaline Phosphatase 73 U/L (45-117) 04/07/20 01:58 Home Medications: Raltegravir Potassium [Isentress] 400 mg PO BID 02/28/12 Lorazepam [Ativan] 2 mg PO BID* PRN 04/02/12 Sertraline [Zoloft*] 200 mg PO DAILY 09/15/12 Emtricitabine/Tenofov Alafenam [Descovy 200-25 mg Tablet] 1 tab PO BEDTIME 10/05/16 Esomeprazole Mag Trihydrate [Nexium] 40 mg PO BID 06/18/19 Triamterene/Hydrochlorothiazid [Triamterene-Hctz 37.5-25 mg Cp] 1 each PO DAILY 06/18/19 Metoprolol Tartrate 100 mg PO BID #60 tablet 02/03/20 Albuterol Inhaler [Ventolin Inhaler*] 2 puff IH Q6H PRN #1 hfa.aer.ad 04/02/20 Budesonide/Formoterol Fumarate [Symbicort 160-4.5 Mcg Inhaler] 2 puff IH BID #1 hfa.aer.ad 04/02/20 predniSONE [Prednisone*] 20 mg PO SEECOM #15 tab 04/02/20 Hydralazine HCl 50 mg PO BID #60 04/03/20 Cetirizine HCl [Zyrtec] 10 mg PO DAILY #30 tab.rapdis 04/07/20 Montelukast Sodium [Singulair] 10 mg PO DAILY #30 tablet 04/07/20 levoFLOXacin [Levaquin*] 500 mg PO DAILY #5 tab 04/07/20 lisinopriL [Prinivil*] 40 mg PO BID 04/07/20 New Medications: levoFLOXacin [Levaquin*] 500 mg PO DAILY #5 tab Montelukast Sodium [Singulair] 10 mg PO DAILY #30 tablet Cetirizine HCl [Zyrtec] 10 mg PO DAILY #30 tab.rapdis Patient Discharge Instructions: OK TO DC IV AND DC HOME. FOLLOW-UP WITH PRIMARY CARE PROVIDER IN 1-2 WEEKS. FOLLOW-UP WITH PULMONARY FOR PULMONARY FUNCTION TESTING AND FOLLOW-UP IN 1-2 WEEKS. RETURN TO THE ER IF symptoms worsen. CALL or TEXT DR. BARKLEY AT [phone] IF ANY QUESTIONS REGARDING HOSPITAL STAY. PLEASE CALL THE FLOOR AT [phone] IF ANY MEDICATION OR NURSING QUESTIONS. Diet: AHA Activity: Fall precautions Followup: Moody Sosa MD [ACTIVE - CAN ADMIT] - Unknown,U [Primary Care Provider] - Time spent managing pt's care (in minutes): 35
[2020-04-08] MEDS ORDERED: levoFLOXacin 500 MG TAB PO SCH (09:00)
[2020-04-08] MEDS ORDERED: CEFTRIAXONE/SWI 1gm 1 GM/10 ML SYR IV SCH (09:00)
== END 2020-04-07 17:01 | disposition home or self-care (01) ==
LOC: ER 00:40 → ERHOLD 04:07 → 2ND 07:43
PROVIDERS: ADMIT Hospitalist; ATTEND Hospitalist
DX: J44.1 Chronic obstructive pulmonary disease with (acute) exacerbation (principal); Z20.828 Contact with and (suspected) exposure to other viral communicable diseases; R94.31 Abnormal electrocardiogram [ECG] [EKG]; I25.10 Atherosclerotic heart disease of native coronary artery without angina pectoris; F31.9 Bipolar disorder, unspecified; I10 Essential (primary) hypertension; E78.5 Hyperlipidemia, unspecified; K21.9 Gastro-esophageal reflux disease without esophagitis; K44.9 Diaphragmatic hernia without obstruction or gangrene; Z96.611 Presence of right artificial shoulder joint; F10.10 Alcohol abuse, uncomplicated; D63.8 Anemia in other chronic diseases classified elsewhere; I48.91 Unspecified atrial fibrillation; K74.60 Unspecified cirrhosis of liver; B18.2 Chronic viral hepatitis C; F17.210 Nicotine dependence, cigarettes, uncomplicated
CPT/HCPCS: 96365; 93005; 87040 ×2; 85025 ×2; 80048 ×2; 36415; 83735; 85610; 80076; 84484; 84145; 83880; 87804 ×2; 71045; 94640; 96375; 99285; U0003; J1650; J7605; J0696; J2930 ×2; J2920

== ENCOUNTER 2020-04-16 10:05 | Emergency (ER) | payer OTHER ==
--- OUTSIDE RECORDS SUMMARY | 2020-04-16 10:07 | XMS REPORT | Clinical Summary ---
:1955 Author Organization [facility] Address [address] [place] [address] Care Team Providers Name Role Phone Asked, [...] Encounters Date Type Specialty Care Team Description 04/16/2020 Telephone Cardiothoracic Surgery Mindy Maharaj NP 04/16/2020 Telephone General Surgery Eliseo Glaser MD 04/10/2020 Telephone General Surgery Eliseo Glaser MD 04/07/2020 Telephone Cardiothoracic Surgery Sofia Sidhu MA 04/01/2020 Orders Only Cardiothoracic Surgery Provider, Cate andre MD 03/31/2020 Travel 03/27/2020 Telephone General Surgery Ramiro Mitchell MD after 04/16/2019 Surgical History Surgery Date Site/Laterality Comments ORTHOPEDIC SURGERY JOINT REPLACEMENT shoulder repla cement BREAST SURGERY cyst removed CHOLECYSTECTOMY APPENDECTOMY ARTHROPLASTY, SHOULDER, TOTAL 10/19/2016 Shoulder/Left Pr ocedure: REV. TOTAL SHOULDER ARTHROP LASTY, REMOVAL OF HARDW ARE ; Surgeon: Austin Bowles MD; Location: [facility] 19 OR; Service: Orthop edics; Laterality: Left ; Medical [...] file Not on file Not on file COVID-19 Exposure Response Date Recorded In the last month, have you been in contact with No / Unsure 03/31/2020 4:01 PM ROLL FORGER someone who was confirmed or suspected to have Coronavirus / COVID-19? Last Filed Vital Signs Not on file Plan of Treatment Date Type Specialty Care Team Description 04/21/2020 Office Visit Cardiothoracic Surgery Eliseo Glaser MD [address] [facility] [address] [place], [place] [address] [phone] Health Maintenance Due Date Last Done Comments CERVICAL CANCER SCREENING 01/22/1977 BREAST CANCER SCREENING 01/22/2006 COLONOSCOPY SCREENING 01/22/2006 SHINGLES VACCINES (#1) 01/22/2006 INFLUENZA VACCINE 12/22/2019 Implants Implanted Type Area Termite Control Technician Device Shelf Model / Identifier Expiration Serial / Date Lot Versa-Dial/Comp Ti Std Taper Used W/25mm Glenoid Basplate - [id number] N/A: N/A [employer] 01/22/2026 [id number] / Implanted: Qty: 1 on 10/19/2016 by Austin Bowles MD at [facility] IMPLANT / DEVICES [id number] 41mm Comprehensive Reverse Shoulder Glenosphere Ba - [id number] PM N/A: N/A [employer] 11/21/2023 [id number] / Implanted: Qty: 1 on 10/19/2016 by Austin Bowles MD at [facility] IMPLANT / DEVICES [id number] Arcom Xl 44-41 Std +3 Humeral Brg - [id number] Left: [employer] 07/20/2017 XL [id number] / Implanted: Qty: 1 on 10/19/2016 by Austin Bowles MD at [facility] IMPLANT Shoulder / DEVICES [id number] Humeral Tray With Locking Ring +5 Left: [employer] 03/31/2026 [id number] / Implanted: Qty: 1 on 10/19/2016 by Austin Bowles MD at [facility] Shoulder / [id number] Results Not on fileafter 04/16/2019 Advance Directives For more information, please contact: [phone] Type Date Recorded Patient Data Miner Explanati on Advance Directives, Living Will and Medical Power of Bean Viner
--- OUTSIDE RECORDS SUMMARY | 2020-04-16 10:08 | XMS REPORT | Continuity of Care Document ---
:1955 Author Organization [facility] t Address [address] [place] [address] Care Team Providers Name Role Phone Asked, Pcp Primary Care Physician Unavailable Luisana Maharaj NP Attending Clinician Jailyn JENKINS Attending Clinician Ronald DHILLON Attending Clinician Nahum SANCHEZ Attending Clinician Unavailable Provider Attending Clinician Curt Mitchell MD Attending Clinician DO SYL Attending Clinician Unavailable DO SYL Admitting Clinician Unavailable Payers Payer Name Policy Type Policy Effective Date Expiration Date Sour ce Number [facility] [id number] [place]TE 00:00:00 Restorationist [id number] 2016- PresentHMO [facility] MEDICAIDUNITEDHC [id number] 2016 [place] COMM STAR+ 00:00:00 Restorationist [id number]/05/2016- PresentHMO Problems Condition Condition Condition Status Onset Resolution Last Treating Co mments Source Name Details Category Date Date Treatment Clinician Date S/p S/p Disease Active Meza reverse reverse 5-30 Methodi 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:00: 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 Unstable Unstable Disease Active [place] on reverse reverse 3-31 Methodi 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:00: 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 Allergies, Adverse Reactions, Alerts Allergy Allergy Status Severity Reaction(s) Onset Inactive Treating Comm ents Source Name Type Date Date Clinician oclvane Propensi Active Rashida soares ramide ty to 5-04 Methodi Hcl adverse 00:00: st reaction 00 s to drug Codeine Propensi Active [place] ty to 3-10 Methodi adverse 00:00: st reaction 00 s to drug Family History Family Member Diagnosis Comments Start Date Stop Date Source Natural father Hypertension Meza Restorationist Natural father Kidney disease Rashida rodger EganRestorationist Social History Social Habit Start Date Stop Date Quantity Comments Source Sex Assigned At [facility] ethodist Exposure to Not sure [place] Metho dist SARS-CoV-2 (event) Cigarettes smoked 2016-11-03 2016-11-03 [place] Restorationist current (pack per 00:00:00 00:00:00 day) - Reported Tobacco use and 2016-11-03 2016-11-03 Never used [facility] ethodist exposure 00:00:00 00:00:00 Alcohol intake 2016-11-03 2016-11-03 Current drinker Porsha on Restorationist 00:00:00 00:00:00 of alcohol (finding) Alcohol Comment 2016-09-23 2016-09-23 rare [facility] ethodist 00:00:00 00:00:00 Smoking Status Start Date Stop Date Source Current every day smoker 2016-11-03 00:00:00 Kilo Jean Medications Ordered Filled Start Stop Current Ordering Indication Dosage Frequency Signature Comments Components Source Medication Medication Date Date Medication? Clinician (SIG) Name Name lisinopril Yes 40mg Take 40 mg [place] (PRINIVIL,Z 6- by mouth. Met hodi ESTRIL) 40 20:31: st mg tablet 31 metoprolol Yes 100mg Take 100 [place] tartrate 6-01 mg by [place] (LOPRESSOR) 20:31: mouth. st 100 mg 31 tablet amLODIPine Yes 10mg Take 10 mg [place] (NORVASC) 601 by mouth. Metho di 10 mg 20:31: st tablet 31 LORAZepam Yes 2mg Take 2 mg [place] (ATIVAN) 2 601 by mouth. Meth jason MG tablet 20:31: st 31 ARIPiprazol Yes 5mg Take 5 mg [place] e (ABILIFY) 10-21 by mouth. Met hodi 5 MG tablet [...] Q.5D Take 40 mg Meza e (NexIUM) 10-21 by mouth 2 Met hodi 40 MG 20:31: (two) st capsule 31 times a day. clobetasol Yes Q.5D Apply [place] (TEMOVATE) 10-21 topically Meth jason 0.05 % 20:31: 2 [...] Future Scheduled 2019-12-22 INFLUENZA VACCINE [place] Restorationist Test 00:00:00 [code = INFLUENZA VACCINE] Future Scheduled 2006-01-22 BREAST CANCER [facility] thodist Test 00:00:00 SCREENING [code = BREAST CANCER SCREENING] Future Scheduled 2006-01-22 COLONOSCOPY SCREENING [place] Restorationist Test 00:00:00 [code = COLONOSCOPY SCREENING] Future Scheduled 2006-01-22 SHINGLES VACCINES [place] Restoration[facility] Test 00:00:00 (#1) [code = SHINGLES VACCINES (#1)] Future Scheduled 1977-01-22 Screening for [facility] thodist Test 00:00:00 malignant neoplasm of cervix (procedure) [code = 871891779] Encounters Start End Encounter Admission Attending Care Care Encounter Source Date/Time Date/Time Type Type Clinicians Facility Department ID 2020-04-14 2020-04-14 Telephone [facility] [id number] 00:00:00 00:00:00 [facility] [id number] [facility] [id number] Results Test Description Test Time Test [...] (qualifier value) Not Detected N URINALYSIS WITH [id number] 10:57:00 Test Item Value Reference Range Interpretation Comments Color (test code = UCOLR) Dk. Yellow Clarity (test code = UCLAR) Hazy Glucose (test code = UGLUC) NEGATIVE NEGATIVE N Bilirubin (test code = UBILI) NEGATIVE NEGATIVE N Ketones (test code = UKET) NEGATIVE NEGATIVE N Specific [place] (test code = 1.025 1.005-1.030 A USPGR) [...]
--- OUTSIDE RECORDS SUMMARY | 2020-04-16 10:16 | XMS REPORT | Clinical Summary ---
:1955 Author Organization [facility] Address [address] [place] [address] Care Team Providers Name Role Phone Rahman [...] cholestyramine 4 gram 0 07/27/2019 Active packet proMETHazine 12.5 mg Take 1 tablet by [...] anxiety morning, 1 disorder tablet at night. LORazepam 2 mg Take 1 tablet by 60 tablet 1 04/10/2020 Active tabletIndications: mouth 2 (two) Generalized anxiety times daily as disorder needed (anxiety). Active Problems Problem Noted Date Obesity (BMI [...] CaridadElsa a bdominal pain (Primary Dx); Cynise, DIRECTOR MATERNAL CHILD Abdominal pain, unspecified abdominal location; History of [...] comments Father ESRD Coronary Heart Disease Father [place], late 60s? Cancer Mother leukemia Relation Name Status Comments Father stroke or [place] Father Father Father Mother Mother Social History [...] Treatment Date Type Specialty Care Team Description 04/14/2020 Office Visit Infectious Disease Santiago Cardenas PA [address] [place] [address] Health Maintenance Due Date Last Done [...] , SERIES 10/04/2001 Implants Implanted Type Area Manager Financial Services Device Shelf Model / Identifier Expiration Serial / Lot Date Central Screw SHOULDER Left: Biomet 03/23/2024 [id number] / Implanted: Qty: 1 on 02/17/2015 by Roland Dixon MD at [facility] Shoulder 3 [id number] / [id number] Mini Humeral Stem SHOULDER Left: Biomet 07/31/2024 1 [id number] / Implanted: Qty: 1 on 02/17/2015 by Roland Dixon MD at [facility] Shoulder 4 [id number] / [id number] Fixed Locking Screw SHOULDER Left: Biomet 5 [id number] / Implanted: Qty: 1 on 02/17/2015 by Roland Dixon MD at [facility] Shoulder 8 [id number] / [id number] Glenosphere SHOULDER Left: Biomet 12/05/2024 [id number] / Implanted: Qty: 1 on 02/17/2015 by Roland Dixon MD at [facility] Shoulder 7 [id number] / [id number] Fixed Locking Screw SHOULDER Left: Biomet 12/30/2024 [id number] / Implanted: Qty: 1 on 02/17/2015 by Roland Dixon MD at [facility] Shoulder 0 [id number] / [id number] Fixed Locking Screw SHOULDER Left: Biomet 12/31/2024 [id number] / Implanted: Qty: 1 on 02/17/2015 by Roland Dixon MD at [facility] Shoulder 0 [id number] / [id number] Humeral Tray With Locking Ring SHOULDER Left: Biomet 12/16/2024 [id number] / Implanted: Qty: 1 on 02/17/2015 by Roland Dixon MD at [facility] Shoulder 8 [id number] / [id number] Glensphere Mini Baseplate SHOULDER Left: Biomet 01/21 [id number] / Implanted: Qty: 1 on 02/17/2015 by Roland Dixon MD at [facility] Shoulder [id number] / [id number] Humeral Bearing SHOULDER Left: Biomet 12/12/2019 XL- [id number] / Implanted: Qty: 1 on 02/17/2015 by Roland Dixon MD at [facility] Shoulder 5 [id number] / [id number] Fixed Locking Scew SHOULDER Left: Biomet 12/11/2024 [id number] / Implanted: Qty: 1 on 02/17/2015 by Roland Dixon MD at [facility] Shoulder 8 [id number] / [id number] Procedures Procedure Name Priority Date/Time Associated Comments [...] 10:28 Abdominal pain , Results for this (77967) (ALB,T.PRO,BILI AM CDT unspecified proc edure are [...] of the pelvis was excluded in the [id number]. 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 [...] of the pelvis was excluded in the [id number]-[id number]. 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 [...] Sig nature WBC 6.30 4.30 - 11.10 [facility] 10*3/L [facility] RBC 4.01 3.93 - 5.25 [facility] 10*6/L [facility] HGB 10.6 (L) 11.6 - 15.0 [facility] g/dL [facility] HCT 35.3 (L) 35.7 - 45.2 % [facility] MCV 88.0 80.6 - 95.5 fL [facility] MCH 26.4 25.9 - 32.8 pg [facility] MCHC 30.0 (L) 31.6 - 35.1 [facility] g/dL [facility] RDW-SD 52.6 (H) 39.0 - 49.9 fL [facility] RDW-CV 16.2 (H) 12.0 - 15.5 % [facility] PLT 192 166 - 358 [facility] 10*3/L [facility] MPV 9.5 9.5 - 12.9 fL [facility] NRBC/100 WBC 0.0 0.0 - 10.0 /100 [facility] WBCs [facility] NRBC x10^3 <0.01 10*3/L [facility] GRAN MAT (NEUT) % 66.9 % [facility] IMM GRAN % 0.60 % [facility] LYMPH % 20.0 % [facility] MONO % 11.4 % [facility] EOS % 0.8 % [facility] BASO % 0.3 % [facility] GRAN MAT x10^3(ANC) 4.21 1.88 - 7.09 [facility] 10*3/uL HOSPITAL LAB[facility]ORY IMM GRAN x10^3 0.04 0.00 - 0.06 [facility] 10*3/uL HOSPITAL LAB[facility] LYMPH x10^3 1.26 (L) 1.32 - 3.29 [facility] 10*3/uL [facility] MONO x10^3 0.72 0.33 - 0.92 [facility] 10*3/uL [facility] EOS x10^3 0.05 0.03 - 0.39 [facility] 10*3/uL [facility] BASO x10^3 <0.03 0.01 - 0.[address]/uL [facility] Specimen Blood - VENOUS Performing Organization Address City/State/Zipcode Phone Number [facility] CLIA: [id number] [place] [address] Basic Metabolic Panel (NA, K, CL, CO2, GLUCOSE, BUN, CREATININE, CA) (01/26/2020 10:28 AM CDT) [facility] NA 139 135 - 145 [facility] mmol/L [facility] K 3.4 (L) 3.5 - 5.0 [facility] mmol/L [facility] CL 103 98 - 108 mmol/L [facility] CO2 TOTAL 28 23 - 31 mmol/L [facility] AGAP 8 2 - 16 [facility] BUN 24 (H) 7 - 23 mg/dL [facility] GLUCOSE 98 70 - 110 mg/dL [facility] CREATININE 0.97 0.50 - 1.04 [facility] mg/dL [facility] CALCIUM 8.3 (L) 8.6 - 10.6 [facility] mg/dL [facility] eGFR Calculation 57.8 mL/min/1.73m2 [facility] ([facility] LABORATORY Stateless) eGFR Calculation 70.1 mL/min/1.73m2 [facility] LABORATORY Specimen Blood - VENOUS Narrative Performed At [facility] Glomerular Filtration Rate (GFR) [facility] [...] abnormalities in imaging tests). Performing Organization Address [facility] Phone Number [facility] CLIA: [id number] [place] [address] Hepatic Function Panel (ALB, T.PRO, BILI T, BU/BC, ALT, AST, ALK PHOS) (01/26/2020 10:28 AM CDT) [facility] TOTAL BILI 0.4 0.1 - [...] Specimen Blood - VENOUS Performing Organization Address [facility] Phone Number [facility] CLIA: [id number] [place] [address] Lipase Serum (01/26/2020 10:28 AM CDT) Pathologist Sig nature LIPASE 109 0 - 220 U/L [facility] Specimen Blood - VENOUS Performing Organization Address City/State/Zipcode Phone Number [facility] CLIA: [id number] [place] [address] NOTICE OF PRIVACY [...] Effective Phone Address T ype Group Dates [facility] STAR [id number] 2020-Pr Me dicaid HEALTHCARE COMM PLUS esent PLAN - MANAGED MEDICAID [facility] [id number] 2019-Pre Medicar e Adv HEALTHCARE - HEALTHCARE DUAL sent [place] MANAGED COMPLETE HMO MEDICARE [facility] [id number] 2019-Pre [address] BOX Beh avioral BEHAVIORAL BEHAVIORAL sent [phone] [place] [address] [facility] Self 1955 [phone] [place] [address] Advance Directives Type Date Recorded Patient Cord Maker Explanati on Advance Directives and Living 01/20/2015 9:28 AM Will Power of Mail Manager 01/20/2015 9:28 AM
--- OUTSIDE RECORDS SUMMARY | 2020-04-16 10:16 | XMS REPORT | Summary of Care ---
:1955 Author Organization [facility] Address [address] [place] [address] Care Team Providers Name Role Phone Rahman Primary Care Provider Reason for Visit Reason Comments Refill Request Encounter Details Date Type Department Care Team Description 04/14/2020 Telephone [facility] Infectious East, ALEJO Pal Refill Request Diseases- [address] [id number] [place], [place] [id number] [place] [address] [place] [address] Allergies Active Allergy Reactions Severity Noted Date Comments Metoclopramide Unknown - See comments 05/28/2016 Metoclopramide Hcl Anxiety 02/14/2015 Butorphanol Tartrate Hallucinations High 07/06/2010 Sulfamethoxazole Unknown - See comments 04/23/2016 Acetaminophen-Codeine Nausea and/or Vomiting 7 documented as of this encounter (statuses as of 04/14/2020) Medications Medication Sig Dispensed Refills Start Date End Date Status hydralAZINE Take 25 mg by 0 Acti ve (APRESOLINE) 25 mg mouth daily. tablet lisinopril Take 40 mg by 0 Activ e (PRINIVIL,ZESTRIL) mouth 2 (two) 40 mg tablet times daily. metoprolol tartrate Take 100 mg 0 Active (LOPRESSOR) 100 mg by mouth 2 tablet (two) times daily. amLODIPine Take 10 mg by 0 Activ e (NORVASC) 10 mg mouth daily. tablet desonide Apply to 60 g 2 06/24/2015 Active (TRIDESILON) 0.05 % affected ointment area(s) 2 (two) times daily. esomeprazole Take 40 mg by 0 Act bruno (NEXIUM) 40 mg mouth 2 (two) capsule times daily. tiotropium bromide Inhale. 0 01/17/2019 Active (SPIRIVA RESPIMAT) 1.25 mcg/actuation Mist cloNIDine 0.1 mg Take 0.1 mg 0 A ctive tablet by mouth 3 (three) times daily. albuterol 90 0 09/04/2019 Active mcg/actuation inhaler cholestyramine 4 0 07/27/2019 Ac tive gram packet proMETHazine 12.5 Take 1 tablet 9 tablet 0 01/26/2020 Active mg by mouth tabletIndications: every 4 History of (four) hours abdominal hernia, as needed for Chronic abdominal Nausea and pain Vomiting (N/V). SERTraline 100 mg Take 2 60 tablet 3 03/03/2020 A ctive tabletIndications: tablets by Mild depressed mouth daily. bipolar II disorder mirtazapine Take half a 30 tablet 2 03/03/2020 Activ e (REMERON) 15 mg tab at tabletIndications: bedtime. Insomnia, unspecified type busPIRone 10 mg Take 2 180 tablet 2 03/03/2020 Ac tive tabletIndications: tablets by Generalized anxiety mouth in the disorder morning, 1 tablet at night. LORazepam 2 mg Take 1 tablet 60 tablet 1 04/10/2020 Active tabletIndications: by mouth 2 Generalized anxiety (two) times disorder daily as needed (anxiety). emtricitabine-tenof Take one po 30 tablet 5 04/14/2020 Active ovir alafen daily (DESCOVY) tabletIndications: Symptomatic HIV infection raltegravir Take 1 tablet 60 tablet 5 04/14/2020 Act bruno (ISENTRESS) 400 mg by mouth 2 tabletIndications: (two) times Symptomatic HIV daily. infection emtricitabine-tenof Take one po 30 tablet 5 10/12/2019 0 Discontinued ovir alafen daily 20 (Reorder ) (DESCOVY) tabletIndications: Symptomatic HIV infection raltegravir Take 1 tablet 60 tablet 5 10/12/2019 04/14/20 Dis continued (ISENTRESS) 400 mg by mouth 2 20 (Reorder) tabletIndications: (two) times Symptomatic HIV daily. infection documented as of this encounter (statuses as of 04/14/2020) Active Problems Problem Noted Date Obesity (BMI 30-39.9) 05/10/2016 Anemia 02/22/2015 Hypovolemia due to hemorrhage 02/21/2015 Chest pain 02/21/2015 S/p reverse total shoulder arthroplasty 02/17/2015 Posttraumatic stress disorder 09/27/2012 Human immunodeficiency virus (HIV) disease 11/18/2010 Bipolar 2 disorder 11/18/2010 Chronic hepatitis C 11/18/2010 Hypertension 11/18/2010 documented as of this encounter (statuses as of 04/14/2020) Immunizations Name Administration Dates Next Due HEPATITIS [...] Telephone Encounter - Karen Reid RN - 04/14/2020 12:38 PM CSTREFILL Provider: Justin Cardenas PA-C Patient's phone number: [phone] (home) Pharmacy: [facility] Medication: isentress Strength: 400 mg Directions: 1 tab BID Quantity: #60 with 5 refills last written 10/12/19 Last filled: 03/31/20 Medication: Descovy Strength: 200-25 mg Directions: 1 tab daily Quantity: #30 with 5 refills last written 10/12/19 Last filled: 03/31/20 Last office visit: 01/25/20 Next office visit: 04/25/20 Refilled per ID protocol guidelines to pharmacy above. NCT BUSINESS INSTRUCTOR Telephone Encounter - Olamide Newby - 04/14/2020 7:16 AM CSTFawn Fleming is a 65 year old female Patient's appointment was cancelled due to Yohan being out sick but the patient would like to requestrefills on Rx raltegravir (ISENTRESS) 400 mg tablet and Rx (DESCOVY). [address]mer documented in this encounter Plan of Treatment Date Type Specialty Care Team Description 04/25/2020 Office Visit Infectious Disease EastSantiago PA [address] [place] [phone] 06/16/2020 Office Visit Psychiatry Jeremiah Ayala M D [address] [place] [address] B d. [place], [place] [phone] Health Maintenance Due Date Last Done [...] of this encounter Implants Implanted Type Area Director Industrial Device Shelf Model / Identifier Expiration Serial / Lot Date Central Screw SHOULDER Left: Biomet 03/23/2024 [id number] / Implanted: Qty: 1 on 02/17/2015 by Roland Dixon MD at [facility] Shoulder 3 [id number] / [id number] Mini Humeral Stem SHOULDER Left: Biomet 07/31/2024 1 [id number] / Implanted: Qty: 1 on 02/17/2015 by Roland Dixon MD at [facility] Shoulder 4 [id number] / [id number] Fixed Locking Screw SHOULDER Left: Biomet [id number] / Implanted: Qty: 1 on 02/17/2015 by Roland Dixon MD at [facility] Shoulder 8 [id number] / [id number] Glenosphere SHOULDER Left: Biomet 12/05/2024 [id number] / Implanted: Qty: 1 on 02/17/2015 by Roland Dixon MD at [facility] Shoulder 7 [id number] / [id number] Fixed Locking Screw SHOULDER Left: Biomet 12/30/2024 [id number] / Implanted: Qty: 1 on 02/17/2015 by Roland Dixon MD at [facility] Shoulder 0 [id number] / [id number] Fixed Locking Screw SHOULDER Left: Biomet 12/31/2024 [id number] / Implanted: Qty: 1 on 02/17/2015 by Roland Dixon MD at [facility] Shoulder 0 [id number] / [id number] Humeral Tray With Locking Ring SHOULDER Left: Biomet 12/16/2024 [id number] / Implanted: Qty: 1 on 02/17/2015 by Roland Dixon MD at [facility] Shoulder 8 [id number] / [id number] Glensphere Mini Baseplate SHOULDER Left: Biomet 01/21 [id number] / Implanted: Qty: 1 on 02/17/2015 by Roland Dixon MD at [facility] Shoulder 1 [id number] / [id number] Humeral Bearing SHOULDER Left: Biomet 12/12/2019 XL- [id number] / Implanted: Qty: 1 on 02/17/2015 by Roland Dixon MD at [facility] Shoulder 5 [id number] / [id number] Fixed Locking Scew SHOULDER Left: Biomet 12/11/2024 [id number] / Implanted: Qty: 1 on 02/17/2015 by Roland Dixon MD at [facility] Shoulder 8 [id number] / [id number] documented as of this encounter Results Not on filedocumented in this encounter Visit Diagnoses Diagnosis Symptomatic HIV infection Human immunodeficiency virus [HIV] disea se documented in this encounter Insurance Payer Benefit Plan / Subscriber ID Effective Phone Address T ype Group Dates [employer] STAR [id number] 2020-Pr Me dicaid HEALTHCARE COMM PLUS esent PLAN - MANAGED MEDICAID [facility] [id number] 2019-Pre Medicar e Adv HEALTHCARE - HEALTHCARE DUAL sent [place] MANAGED COMPLETE HMO MEDICARE [facility] [id number] 2019-Pre P O BOX Beh avioral BEHAVIORAL BEHAVIORAL [place] [id number] [place] [address] documented as of this encounter Advance Directives Type Date Recorded Patient Live Hanger Explanati on Advance Directives and Living 01/20/2015 9:28 AM Will Power of Joint Filler 01/20/2015 9:28 AM
[2020-04-16] MEDS ORDERED: MAGNES/ALUMIN/SIMET 30ML UCUP ONE (10:57)
[2020-04-16] MEDS ORDERED: MORPHINE 4 MG/ML SYR ONE ×2 (10:58→12:24)
[2020-04-16] MEDS ORDERED: NA CHLORIDE 0.9% 1,000 ML ONE (10:58)
[2020-04-16] MEDS ORDERED: ONDANSETRON 4 MG/2 ML VIAL ONE (10:58)
[2020-04-16] MEDS ORDERED: FAMOTIDINE 20 MG/2 ML VIAL IV ONE (10:59)
[2020-04-16 11:38] LABS: Absolute Lymphocytes (CBC) 1.4 K/uL (0.7-4.9); Albumin 3.3 g/dL (3.4-5.0); Basophils % 0.5 % (0-1.3); Bilirubin Direct 0.2 mg/dL (0-0.2); Bilirubin Total 0.5 mg/dL (0.2-1.0); Hematocrit 38.7 % (36.0-45.0); Lymphocytes % 13.2 % (15.3-44.8); MPV 7.6 fL (7.6-11.3); Potassium 3.9 mmol/L (3.5-5.1); Protein, Total 7.3 g/dL (6.4-8.2)
--- NOTE | 2020-04-16 11:55 | RAD REPORT ---
EXAM DESCRIPTION: CT - Abdomen Pelvis W Contrast - 04/16/2020 11:31 am CLINICAL HISTORY: Abdominal pain COMPARISON: January 2020 TECHNIQUE: Computed axial tomography of the abdomen pelvis was obtained. 100 cc Isovue-300 was admin istered intravenously. Oral contrast was not requested which limits evaluation of bowel. All CT scans are performed using dose optimization technique as appropriate and may include automated exposure control or mA/KV adjustment according to patient size. FINDINGS: Moderate to large hiatal hernia The liver, spleen, pancreas, and adrenals appear unremarkable. Bilateral renal cysts again demonstrat ed There is no evidence of diverticulitis. No adnexal mass. Cholecystectomy. Small umbilical hernia IMPRESSION: No acute abnormality is displayed.
[2020-04-16] MEDS ORDERED: PROMETHAZINE INJ 25 MG/ML AMP ONE (12:23)
--- NOTE | 2020-04-16 12:37 | ER ---
Nurse's Notes [facility] Name: Marjan Fleming Age: 65 yrs Sex: Female : 1955 Arrival Date: 04/16/2020 Time: 10:08 Bed 4 Private MD: Diagnosis: Gastro-esophageal reflux disease Presentation: 04/16 10:20 Chief complaint: Patient states: "I have as hiatal hernia and I have an appointment ss scheduled with Dr. Hansen Tuesday for a surgical consult, but this morning I woke up and I have all this swelling in my belly, and I'm nauseous and my belly hurts (pointing to upper abd).". Coronavirus screen: Client denies travel out of the [place] in the last 14 days. Ebola Screen: Patient denies exposure to infectious person. No symptoms or risks identified at this time. Initial Sepsis Screen: Does the patient meet any 2 criteria? No. Patient's initial sepsis screen is negative. Does the patient have a suspected source of infection? No. Patient's initial sepsis screen is negative. Risk Assessment: Do you want to hurt yourself or someone else? Patient reports no desire to harm self or others. Onset of symptoms was April 16, 2020. 10:20 Method Of Arrival: Ambulatory ss 10:20 Acuity: BLAYNE 3 ss Historical: - Allergies: 10:41 butorphanol tartrate; sv 10:41 sulfamethoxazole (bulk); sv 10:41 TRIMETHOPRIM; sv 10:41 Fentanyl; sv 10:48 Stadol; sv 10:48 metoclopramide HCl; sv 10:48 Bactrim DS; sv - Home Meds: 10:48 BuSpar Oral [Active]; Descovy oral oral [Active]; Hydralazine Oral [Active]; Lisinopril sv Oral [Active]; Metformin Oral [Active]; metoprolol tartrate Oral [Active]; Norvasc Oral [Active]; raltegravir oral oral [Active]; sertraline oral oral [Active]; - PMHx: 10:48 COPD; HIV; Hypertension; Bipolar disorder; Anxiety; Panic Attacks; Migraines; Chronic sv pain; Hepatitis; Atrial Fib; esophageal varices; - PSHx: 10:41 Cholecystectomy; Appendectomy; Cardiac Cath; sv - Immunization history:: Adult Immunizations up to date. - Social history:: Patient/guardian denies using alcohol, street drugs, The patient lives with family, Smoking status: Patient denies any tobacco usage or history of. Assessment: 10:55 General: Appears in no apparent distress. Behavior is calm, anxious. Pain: Complains of vg1 pain in abdomen Pain currently is 10 out of 10 on a pain scale. Neuro: Level of Consciousness is awake, alert, obeys commands, Oriented to person, place, time, situation. Cardiovascular: Patient's skin is warm and dry. Respiratory: Airway is patent Respiratory effort is even, unlabored, Respiratory pattern is regular, symmetrical. GI: Bowel sounds present X 4 quads. Abdomen is tender to palpation X 4 quads. : No signs and/or symptoms were reported regarding the genitourinary system. EENT: No signs and/or symptoms were reported regarding the EENT system. Derm: Skin is pink, warm \\T\\ dry. Musculoskeletal: Range of motion: intact in all extremities. 12:00 Reassessment: Patient appears in no apparent distress at this time. Patient and/or vg1 family updated on plan of care and expected duration. Pain level reassessed. Patient is alert, oriented x 3, equal unlabored respirations, skin warm/dry/pink. Patient states 'no change in pain'. Provider Notified. Vital Signs: 10:15 BP 134 / 72; Pulse 52; Resp 16; Pulse Ox 98% on R/A; vg1 10:20 BP 134 / 72; Pulse 71; Resp 18; Temp 98.4(O); Pulse Ox 98% on R/A; Weight 97.52 kg; ss Height 5 ft. 4 in. (162.56 cm); Pain 10/10; 10:20 Body Mass Index 36.90 (97.52 kg, 162.56 cm) ED Course: 10:08 Patient arrived in ED. as 10:14 Liz Otoole MD is Attending Physician. ma2 10:20 Arm band placed on right wrist. ss 10:28 Triage completed. ss 10:38 Renae Camarillo RN is Primary Nurse. vg1 11:09 Inserted saline lock: 22 gauge in left forearm, using aseptic technique. ,using aseptic sv technique. diffusics Blood collected. Flushed left forearm with 2 ml normal saline. 11:[address] via wheelchair. jj2 11:30 CT completed. Patient tolerated procedure well. jj2 11:31 CT Abd/Pelvis - IV Contrast Only In Process Unspecified. EDMS 12:47 No provider procedures requiring assistance completed. IV discontinued, intact, sv bleeding controlled, No redness/swelling at site. Pressure dressing applied. Administered Medications: 11:10 Drug: NS 0.9% 1000 ml Route: IV; Rate: 1000 ml; Site: left forearm; vg1 12:47 Follow up: Response: No adverse reaction; IV Status: Completed infusion; IV Intake: sv 1000ml 11:10 Drug: Zofran (Ondansetron) 4 mg Route: IVP; Site: left forearm; vg1 11:10 Drug: morphine 4 mg {Note: rass 1.} Route: IVP; Site: left forearm; vg1 11:10 Drug: GI Cocktail without - (Maalox Suspension 30 ml, Lidocaine Liquid 2 % 15 vg1 ml) Route: PO; 12:47 Follow up: Response: No adverse reaction sv 11:10 Drug: Pepcid 20 mg Route: IVP; Site: left forearm; vg1 12:47 Follow up: Response: No adverse reaction sv 12:15 Drug: morphine 4 mg {Note: rass 0.} Route: IVP; Site: left femoral; vg1 12:46 Follow up: Response: No adverse reaction; RASS: Alert and Calm (0) sv 12:15 Drug: Phenergan 25 mg Route: IVP; Site: left forearm; vg1 12:46 Follow up: Response: No adverse reaction sv Intake: 12:47 IV: 1000ml; Total: 1000ml. sv Outcome: 12:36 Discharge ordered by . maEleanor 12:47 Discharged to home ambulatory. sv 12:47 Condition: stable 12:47 Discharge instructions given to patient, Instructed on discharge instructions, follow up and referral plans. medication usage, Demonstrated understanding of instructions, follow-up care, medications, Prescriptions given X 4. 12:47 Patient left the ED. sv Signatures: Dispatcher [employer] EDMS Leyda Santamaria RN RN sv Jaramillo, Justin jj2 Martinez, Amelia as Smirch, Shelby, RN RN ss Alzahri, Mohammad, MD MD ma2 Garcia, Victoria, RN RN vg1 Corrections: (The following items were deleted from the chart) 10:48 10:26 Allergies: Stadol [Inactive]; ma2 sv 10:48 10:26 Allergies: metoclopramide HCl [Inactive]; ma2 sv 10:48 10:26 Allergies: Bactrim DS [Inactive]; ma2 sv 10:48 10:26 PMHx: COPD [Inactive]; ma2 sv 10:48 10:26 PMHx: HIV [Inactive]; ma2 sv 10:48 10:26 PMHx: Hypertension [Inactive]; ma2 sv 10:48 10:26 PMHx: Bipolar disorder [Inactive]; ma2 sv 10:48 10:26 PMHx: Anxiety [Inactive]; ma2 sv 10:48 10:26 PMHx: Panic Attacks [Inactive]; ma2 sv 10:48 10:26 PMHx: Migraines [Inactive]; ma2 sv 10:48 10:26 PMHx: Chronic pain [Inactive]; ma2 sv 10:48 10:26 PMHx: Hepatitis [Inactive]; ma2 sv 10:48 10:26 PMHx: Atrial Fib [Inactive]; ma2 sv
--- NOTE | 2020-04-16 12:37 | EDPHYS ---
Physician Documentation [facility] Name: Marjan Fleming Age: 65 yrs Sex: Female : 1955 Arrival Date: 04/16/2020 Time: 10:08 Bed 4 Private MD: ED Physician Liz Otoole HPI: 04/16 10:25 This 65 yrs old Female presents to ER via Unassigned with complaints of ma2 Abdominal Swelling. 10:25 The patient presents with abdominal pain. Onset: The symptoms/episode began/occurred ma2 gradually, 2 hour(s) ago. Associated signs and symptoms: Pertinent negatives: nausea, vomiting, and diarrhea, chest pain, dysuria, fever, headache, vaginal discharge, vomiting blood. Severity of pain: At its worst the pain was moderate in the emergency department the pain is unchanged. The patient has experienced similar episodes in the past, hx of hiatal hernia . Historical: - Allergies: 10:41 butorphanol tartrate; sv 10:41 sulfamethoxazole (bulk); sv 10:41 TRIMETHOPRIM; sv 10:41 Fentanyl; sv 10:48 Stadol; sv 10:48 metoclopramide HCl; sv 10:48 Bactrim DS; sv - Home Meds: 10:48 BuSpar Oral [Active]; Descovy oral oral [Active]; Hydralazine Oral [Active]; Lisinopril sv Oral [Active]; Metformin Oral [Active]; metoprolol tartrate Oral [Active]; Norvasc Oral [Active]; raltegravir oral oral [Active]; sertraline oral oral [Active]; - PMHx: 10:48 COPD; HIV; Hypertension; Bipolar disorder; Anxiety; Panic Attacks; Migraines; Chronic sv pain; Hepatitis; Atrial Fib; esophageal varices; - PSHx: 10:41 Cholecystectomy; Appendectomy; Cardiac Cath; sv - Immunization history:: Adult Immunizations up to date. - Social history:: Patient/guardian denies using alcohol, street drugs, The patient lives with family, Smoking status: Patient denies any tobacco usage or history of. ROS: 10:26 Constitutional: Negative for fever, chills, and weight loss. ma2 10:26 All other systems are negative. Exam: 10:26 Constitutional: This is a well developed, well nourished patient who is awake, alert, ma2 and in no acute distress. Head/Face: Normocephalic, atraumatic. Eyes: Pupils equal round and reactive to light, extra-ocular motions intact. Lids and lashes normal. Conjunctiva and sclera are non-icteric and not injected. Cornea within normal limits. Periorbital areas with no swelling, redness, or edema. ENT: Nares patent. No nasal discharge, no septal abnormalities noted. Tympanic membranes are normal and external auditory canals are clear. Oropharynx with no redness, swelling, or masses, exudates, or evidence of obstruction, uvula midline. Mucous membranes moist. Neck: Trachea midline, no thyromegaly or masses palpated, and no cervical lymphadenopathy. Supple, full range of motion without nuchal rigidity, or vertebral point tenderness. No Meningismus. Chest/axilla: Normal chest wall appearance and motion. Nontender with no deformity. No lesions are appreciated. Cardiovascular: Regular rate and rhythm with a normal S1 and S2. No gallops, murmurs, or rubs. Normal PMI, no JVD. No pulse deficits. Respiratory: Lungs have equal breath sounds bilaterally, clear to auscultation and percussion. No rales, rhonchi or wheezes noted. No increased work of breathing, no retractions or nasal flaring. Abdomen/GI: Soft, non-tender, with normal bowel sounds. No distension or tympany. No guarding or rebound. No evidence of tenderness throughout. Back: No spinal tenderness. No costovertebral tenderness. Full range of motion. Skin: Warm, dry with normal turgor. Normal color with no rashes, no lesions, and no evidence of cellulitis. MS/ Extremity: Pulses equal, no cyanosis. Neurovascular intact. Full, normal range of motion. Neuro: Awake and alert, GCS 15, oriented to person, place, time, and situation. Cranial nerves II-XII grossly intact. Motor strength 5/5 in all extremities. Sensory grossly intact. Cerebellar exam normal. Normal gait. Vital Signs: 10:15 BP 134 / 72; Pulse 52; Resp 16; Pulse Ox 98% on R/A; vg1 10:20 BP 134 / 72; Pulse 71; Resp 18; Temp 98.4(O); Pulse Ox 98% on R/A; Weight 97.52 kg; ss Height 5 ft. 4 in. (162.56 cm); Pain 10; 10:20 Body Mass Index 36.90 (97.52 kg, 162.56 cm) ss MDM: 10:14 Patient medically screened. ma2 10:26 Differential diagnosis: Hepatitis, Irritable bowel syndrome, pancreatitis. Data ma2 reviewed: vital signs, nurses notes. 12:35 Counseling: I had a detailed discussion with the patient and/or guardian regarding: the ma2 historical points, exam findings, and any diagnostic results supporting the discharge/admit diagnosis, the presence of at least one elevated blood pressure reading (>120/80) during this emergency department visit, the need for outpatient follow up. Response to treatment: the patient's symptoms have resolved after treatment. 04/16 10:25 Order name: BMP; Complete Time: 11:59 ma2 04/16 10:25 Order name: CBC with Diff; Complete Time: 11:59 ma2 04/16 10:25 Order name: Hepatic Function; Complete Time: 11:59 ma2 04/16 10:25 Order name: Lipase; Complete Time: 11:59 ma2 04/16 10:25 Order name: CT Abd/Pelvis - IV Contrast Only; Complete Time: 11:59 ma2 04/16 10:25 Order name: IV Saline Lock; Complete Time: 11:18 ma2 04/16 10:25 Order name: Labs collected and sent; Complete Time: 11:18 ma2 04/16 10:25 Order name: NPO; Complete Time: 11:18 ma2 Administered Medications: 11:10 Drug: NS 0.9% 1000 ml Route: IV; Rate: 1000 ml; Site: left forearm; vg1 12:47 Follow up: Response: No adverse reaction; IV Status: Completed infusion; IV Intake: sv 1000ml 11:10 Drug: Zofran (Ondansetron) 4 mg Route: IVP; Site: left forearm; vg1 11:10 Drug: morphine 4 mg {Note: rass 1.} Route: IVP; Site: left forearm; vg1 11:10 Drug: GI Cocktail without - (Maalox Suspension 30 ml, Lidocaine Liquid 2 % 15 vg1 ml) Route: PO; 12:47 Follow up: Response: No adverse reaction sv 11:10 Drug: Pepcid 20 mg Route: IVP; Site: left forearm; vg1 12:47 Follow up: Response: No adverse reaction sv 12:15 Drug: morphine 4 mg {Note: rass 0.} Route: IVP; Site: left femoral; vg1 12:46 Follow up: Response: No adverse reaction; RASS: Alert and Calm (0) sv 12:15 Drug: Phenergan 25 mg Route: IVP; Site: left forearm; vg1 12:46 Follow up: Response: No adverse reaction sv Disposition: 04/16/20 12:36 Discharged to Home. Impression: Gastro-esophageal reflux disease. - Condition is Stable. - Discharge Instructions: Hiatal Hernia. - Prescriptions for Diclofenac Sodium 75 mg Oral Tablet Sustained Release - take 1 tablet by ORAL route 2 times per day; 30 tablet. Pepcid 20 mg Oral Tablet - take 1 tablet by ORAL route once daily for 10 days; 10 tablet. Zofran 4 mg Oral Tablet - take 1 tablet by ORAL route every 12 hours As needed; 20 tablet. Albuterol Sulfate 90 mcg/actuation - inhale 1-2 puff by INHALATION route every 4-6 hours; 1 Inhaler. - Medication Reconciliation Form, Thank You Letter, Antibiotic Education, Prescription Opioid Use form. - Follow up: Private Physician; When: Tomorrow; Reason: If symptoms return, Continuance of care. Signatures: Dispatcher [employer] Leyda Wayne RN RN Sandra Cadet RN RN ss Liz Otoole MD MD ma2 Garcia, Victoria, RN RN vg1 Corrections: (The following items were deleted from the chart) 10:48 10:26 Allergies: Stadol [Inactive]; ma2 sv 10:48 10:26 Allergies: metoclopramide HCl [Inactive]; ma2 sv 10:48 10:26 Allergies: Bactrim DS [Inactive]; ma2 sv 10:48 10:26 PMHx: COPD [Inactive]; ma2 sv 10:48 10:26 PMHx: HIV [Inactive]; ma2 sv 10:48 10:26 PMHx: Hypertension [Inactive]; ma2 sv 10:48 10:26 PMHx: Bipolar disorder [Inactive]; ma2 sv 10:48 10:26 PMHx: Anxiety [Inactive]; ma2 sv 10:48 10:26 PMHx: Panic Attacks [Inactive]; ma2 sv 10:48 10:26 PMHx: Migraines [Inactive]; ma2 sv 10:48 10:26 PMHx: Chronic pain [Inactive]; ma2 sv 10:48 10:26 PMHx: Hepatitis [Inactive]; ma2 sv 10:48 10:26 PMHx: Atrial Fib [Inactive]; ma2 sv 12:47 12:36 04/16/2020 12:36 Discharged to Home. Impression: Gastro-esophageal reflux sv disease. Condition is Stable. Forms are Medication Reconciliation Form, Thank You Letter, Antibiotic Education, Prescription Opioid Use. Follow up: Private Physician; When: Tomorrow; Reason: If symptoms return, Continuance of care. ma2
[2020-04-16 13:46] VITALS: BP 134/72; O2SAT 98
[2020-04-16 13:48] VITALS: TEMP 98.4
== END 2020-04-16 12:47 | disposition home or self-care (01) ==
LOC: ER 10:05
DX: K21.9 Gastro-esophageal reflux disease without esophagitis (principal); K44.9 Diaphragmatic hernia without obstruction or gangrene; I10 Essential (primary) hypertension; F31.9 Bipolar disorder, unspecified; I48.91 Unspecified atrial fibrillation; Z21 Asymptomatic human immunodeficiency virus [HIV] infection status; Z88.1 Allergy status to other antibiotic agents; Z88.2 Allergy status to sulfonamides; Z88.5 Allergy status to narcotic agent; Z88.8 Allergy status to other drugs, medicaments and biological substances
CPT/HCPCS: 85025; 80048; 36415; 80076; 83690; 74177; 99284; Q9967; J2550; J7030; J2405

== ENCOUNTER 2020-04-19 08:39 | Emergency (ER) | payer OTHER ==
--- OUTSIDE RECORDS SUMMARY | 2020-04-19 08:45 | XMS REPORT | Clinical Summary ---
:1955 Author Organization [facility] Address [address] [place] [address] Care Team Providers Name Role Phone Asked, [...] Team Description 04/16/2020 Telephone Cardiothoracic Surgery Mindy Mahraaj NP 04/16/2020 Telephone General Surgery Eliseo Glaser MD 04/10/2020 Telephone General Surgery Eliseo Glaser MD 04/07/2020 Telephone Cardiothoracic Surgery Sofia Sidhu MA 04/01/2020 Orders Only Cardiothoracic Surgery Provider, Cate andre MD 03/31/2020 Travel 03/27/2020 Telephone General Surgery Rmairo Mitchell MD after 04/19/2019 Surgical History Surgery Date Site/Laterality Comments ORTHOPEDIC SURGERY JOINT REPLACEMENT shoulder repla cement BREAST SURGERY cyst removed CHOLECYSTECTOMY APPENDECTOMY ARTHROPLASTY, SHOULDER, TOTAL 10/19/2016 Shoulder/Left Pr ocedure: REV. TOTAL SHOULDER ARTHROP LASTY, REMOVAL OF HARDW ARE ; Surgeon: Austin Bowles MD; Location: [facility] 19 OR; Service: Orthop edics; Laterality: [...] with No / Unsure 03/31/2020 4:01 PM CLINICAL TECH someone who was confirmed or suspected to have Coronavirus / COVID-19? Last Filed Vital Signs Not on file Plan of Treatment Date Type Specialty Care Team Description 04/21/2020 Office Visit Cardiothoracic Surgery Eliseo Glaser MD [address] [facility] [address] [place], [place] [address] [phone] Health Maintenance Due Date Last Done Comments CERVICAL CANCER SCREENING 01/22/1977 BREAST CANCER SCREENING 01/22/2006 COLONOSCOPY SCREENING 01/22/2006 SHINGLES VACCINES (#1) 01/22/2006 INFLUENZA VACCINE 12/22/2019 Implants Implanted Type Area Debit Agent Device Shelf Model / Identifier Expiration Serial / Date Lot Versa-Dial/Comp Ti Std Taper Used W/25mm Glenoid Basplate - [id number] IPM N/A: N/A [employer] 01/22/2026 [id number] / Implanted: Qty: 1 on 10/19/2016 by Austin Bowles MD at [facility] IMPLANT / DEVICES [id number] 41mm Comprehensive Reverse Shoulder Glenosphere Ba - [id number] I PM N/A: N/A [employer] 11/21/2023 [id number] / Implanted: Qty: 1 on 10/19/2016 by Austin Bowles MD at [facility] IMPLANT / DEVICES [id number] Arcom Xl 44-41 Std +3 Humeral Brg - [id number] IPM Left: [employer] 07/20/2017 XL [id number] / Implanted: Qty: 1 on 10/19/2016 by Austin Bowles MD at [facility] IMPLANT Shoulder / DEVICES [id number] Humeral Tray With Locking Ring +5 Left: [employer] 03/31/2026 [id number] / Implanted: Qty: 1 on 10/19/2016 by Austin Bowles MD at [facility] Shoulder / [id number] Results Not on fileafter 04/19/2019 Advance Directives For more information, please contact: [phone] Type Date Recorded Patient Senior Web Architect Explanati on Advance Directives, Living Will and Medical Power of Veterinary Technician Assistant
--- OUTSIDE RECORDS SUMMARY | 2020-04-19 08:45 | XMS REPORT | Continuity of Care Document ---
:1955 Author Organization [facility] t Address [address] [place] [address] Care Team Providers Name Role Phone Asked, Pcp Primary Care Physician Unavailable Luisana Maharaj NP Attending Clinician Jailyn JENKINS Attending Clinician Ronald DHILLON Attending Clinician Nahum SANCHEZ Attending Clinician Unavailable Provider Attending Clinician Curt Mitchell MD Attending Clinician DO SYL Attending Clinician Unavailable DO SYL Admitting Clinician Unavailable Payers Payer Name Policy Type Policy Effective Date Expiration Date Sour ce Number [facility] [id number] [address] [place]PLETE 00:00:00 [place] [id number] 2016- PresentHMO [facility] MEDICAIDUNITEDHC [id number] [address] [place] COMM STAR+ 00:00:00 Zoroastrian [id number] 2016- PresentHMO Problems Condition Condition Condition Status [...] 00 s to drug Codeine Propensi Active [place] ty to 3-10 Methodi adverse 00:00: st reaction 00 s to drug Family History Family Member Diagnosis Comments Start Date Stop Date Source Natural father Hypertension Meza Zoroastrian Natural father Kidney disease Rashida rodger EganZoroastrian Social History Social Habit Start Date Stop Date Quantity Comments Source Sex Assigned At [facility] ethodist Exposure to Not sure [place] Metho dist SARS-CoV-2 (event) Cigarettes smoked 2016-11-03 2016-11-03 [place] Zoroastrian current (pack per 00:00:00 00:00:00 day) - Reported Tobacco use and 2016-11-03 2016-11-03 Never used [facility] ethodist exposure 00:00:00 00:00:00 Alcohol intake 2016-11-03 2016-11-03 Current drinker Porsha on Zoroastrian 00:00:00 00:00:00 of alcohol (finding) Alcohol Comment 2016-09-23 2016-09-23 rare [facility] ethodist 00:00:00 00:00:00 Smoking Status Start Date [...] Future Scheduled 2019-12-22 INFLUENZA VACCINE [place] Test 00:00:00 [code = INFLUENZA VACCINE] Future Scheduled 2006-01-22 BREAST CANCER [facility] thodist Test 00:00:00 SCREENING [code = BREAST CANCER SCREENING] Future Scheduled 2006-01-22 COLONOSCOPY SCREENING [place] Zoroastrian Test 00:00:00 [code = COLONOSCOPY SCREENING] Future Scheduled 2006-01-22 SHINGLES VACCINES [place] Test 00:00:00 (#1) [code = SHINGLES VACCINES (#1)] Future Scheduled 1977-01-22 Screening for [facility] thodist Test 00:00:00 malignant neoplasm of cervix (procedure) [code = 005902514] Encounters Start End Encounter Admission Attending Care Care Encounter Source Date/Time Date/Time Type Type Clinicians Facility Department ID 2020-04-14 2020-04-14 Telephone [facility] [id number] 00:00:00 00:00:00 [facility] [id number] [facility] [id number] Results Test Description Test Time Test [...] (qualifier value) Not Detected N URINALYSIS WITH [id number] 10:57:00 Test Item Value Reference Range Interpretation Comments Color (test code = UCOLR) Dk. Yellow Clarity (test code = UCLAR) Hazy Glucose (test code = UGLUC) NEGATIVE NEGATIVE N Bilirubin (test code = UBILI) NEGATIVE NEGATIVE N Ketones (test code = UKET) NEGATIVE NEGATIVE N Specific [place] (test code = 1.025 1.005-1.030 A USPGR) [...]
[2020-04-19 09:35] LABS: Absolute Lymphocytes (CBC) 1.1 K/uL (0.7-4.9); Basophils % 0.6 % (0-1.3); Hematocrit 34.9 % (36.0-45.0); Lymphocytes % 13.7 % (15.3-44.8); MPV 7.4 fL (7.6-11.3); RBC Red Blood Cell Count 4.41 M/uL (3.86-4.86)
[2020-04-19] MEDS ORDERED: MORPHINE 4 MG/ML SYR ONE ×2 (09:45→10:32)
[2020-04-19] MEDS ORDERED: ONDANSETRON 4 MG/2 ML VIAL ONE (09:46)
[2020-04-19 09:49] LABS: ALT/SGPT 20 U/L (12-78); AST/SGOT 13 U/L (15-37); Albumin 2.8 g/dL (3.4-5.0); Alkaline Phosphatase 64 U/L (45-117); BUN Blood Urea Nitrogen 12 mg/dL (7-18); Bicarbonate 28 mmol/L (21-32); Bilirubin Direct < 0.1 mg/dL (0-0.2); Bilirubin Total 0.5 mg/dL (0.2-1.0); Glucose Level 126 mg/dL (74-106); Lipase 107 U/L (73-393); Potassium 3.7 mmol/L (3.5-5.1); Protein, Total 7.1 g/dL (6.4-8.2); Sodium Level 141 mmol/L (136-145)
--- NOTE | 2020-04-19 10:19 | RAD REPORT ---
EXAM DESCRIPTION: CTAbdomen Pelvis W Contrast - 04/19/2020 10:07 am CLINICAL HISTORY: Abdominal pain. ABD PAIN COMPARISON: Abdomen Pelvis W Contrast dated 04/16/2020; Abdomen Pelvis W Contrast dated 01/28/2020 ; Abdomen Pelvis W Contrast dated 08/06/2019; Abdomen Pelvis W Contrast dated 07/01/2017 TECHNIQUE: Biphasic CT imaging of the abdomen and pelvis was performed with 100 ml non-ionic IV cont rast. All CT scans are performed using dose optimization technique as appropriate and may include automated exposure control or mA/KV adjustment according to patient size. FINDINGS: The lung bases are clear.Moderate axial hiatal hernia. Cholecystectomy clips. The liver, spleen, pancreas, adrenal glands are within normal limits. Bilateral benign renal cysts. No bowel obstruction, free air, free fluid or abscess. Appendectomy. No evidence of significant lym phadenopathy. Prominent lumbosacral degenerative changes. IMPRESSION: No acute intra-abdominal or pelvic finding. Moderate axial hiatal hernia.
[2020-04-19] MEDS ORDERED: LORazepam 2 MG/ML VIAL ONE (10:41)
[2020-04-19] MEDS ORDERED: NA CHLORIDE 0.9% 500 ML ONE (10:42)
--- NOTE | 2020-04-19 11:07 | EDPHYS ---
Physician Documentation [facility] Name: Marjan Fleming Age: 65 yrs Sex: Female : 1955 Arrival Date: 04/19/2020 Time: 08:42 Bed 5 Private MD: Lele Rahman H ED Physician Ramon Baker HPI: 04/19 09:21 This 65 yrs old Female presents to ER via Ambulatory with complaints of jmm Abdominal Pain. 09:21 The patient presents with abdominal pain. Onset: The symptoms/episode began/occurred jmm this morning. The symptoms do not radiate. Associated signs and symptoms: Pertinent negatives: diarrhea, vomiting. This is a 65 year old female with a history of HIV, anxiety, HTN, migraines, that presents to the ED with complaints of epigastric abdominal pain beginning earlier this morning. Patient states she is scheduled for surgery this Tuesday for a hiatal hernia. Patient states having 1 similar episode. . Historical: - Allergies: 09:07 Bactrim DS; tw2 09:07 butorphanol tartrate; tw2 09:07 Fentanyl; tw2 09:07 metoclopramide HCl; tw2 09:07 Stadol; tw2 09:07 sulfamethoxazole (bulk); tw2 09:07 TRIMETHOPRIM; tw2 - PMHx: 09:07 HIV; Chronic pain; esophageal varices; Hepatitis; Bipolar disorder; Atrial Fib; COPD; tw2 Anxiety; Hypertension; Migraines; Panic Attacks; - PSHx: 09:07 Cholecystectomy; Appendectomy; Cardiac Cath; tw2 - Immunization history:: Adult Immunizations. - Social history:: Smoking status: . ROS: 09:21 Constitutional: Negative for fever, chills, and weight loss, Cardiovascular: Negative jmm for chest pain, palpitations, and edema, Respiratory: Negative for shortness of breath, cough, wheezing, and pleuritic chest pain. 09:21 Abdomen/GI: Positive for abdominal pain. 09:21 All other systems are negative. Exam: 09:21 Head/Face: atraumatic. Eyes: EOMI, no conjunctival erythema appreciated ENT: Moist jmm Mucus Membranes Neck: Trachea midline, Supple Chest/axilla: Normal chest wall appearance and motion. Cardiovascular: Regular rate and rhythm. No edema appreciated Respiratory: Normal respirations, no respiratory distress appreciated 09:21 Back: Normal ROM Skin: General appearance color normal MS/ Extremity: Moves all extremities, no obvious deformities appreciated, no edema noted to the lower extremities Neuro: Awake and alert, normal gait Psych: Behavior is normal, Mood is normal, Patient is cooperative and pleasant 09:21 Constitutional: The patient appears in no acute distress, alert, awake. 09:21 Abdomen/GI: Inspection: abdomen appears normal, Bowel sounds: normal, Palpation: soft, mild abdominal tenderness, in the right upper quadrant and left upper quadrant. Vital Signs: 09:06 BP 151 / 107; Pulse 88; Resp 16; Temp 97.2; Pulse Ox 97% on R/A; Pain 10/10; hb 10:21 BP 165 / 81; Pulse 69; Resp 17; Pulse Ox 97% on R/A; Pain 9/10; tw2 11:03 BP 167 / 91; Pulse 67; Resp 17; Pulse Ox 95% on R/A; tw2 MDM: 09:25 Patient medically screened. [facility] 11:03 Data reviewed: vital signs, nurses notes. Counseling: I had a detailed discussion with yas the patient and/or guardian regarding: the historical points, exam findings, and any diagnostic results supporting the discharge/admit diagnosis, lab results, radiology results, the need for outpatient follow up, to return to the emergency department if symptoms worsen or persist or if there are any questions or concerns that arise at home. ED course: Pain has decreased in the ED. Labs and imaging studies negative for an acute process. Patient advised to follow up with surgery for reevaluation. Patient is otherwise given strict return precautions. Patient understood and agrees with the plan of care. . 04/19 09:18 Order name: Basic Metabolic Panel; Complete Time: [facility] 04/19 09:18 Order name: CBC with Diff; Complete Time: [facility] 04/19 09:18 Order name: Hepatic Function; Complete Time: [facility] 04/19 09:18 Order name: Lipase; Complete Time: [facility] 04/19 09:18 Order name: CT Abd/Pelvis - IV Contrast Only; Complete Time: 10:25 [facility] 04/19 09:18 Order name: IV Saline Lock; Complete Time: :30 [facility] 04/19 09:18 Order name: Labs collected and sent; Complete Time: : [facility] Administered Medications: 09:32 Drug: Zofran (Ondansetron) 4 mg Route: IVP; Site: left forearm; tw2 10:15 Follow up: Response: No adverse reaction tw2 09:34 Drug: morphine 4 mg {Note: RASS 0.} Route: IVP; Site: left forearm; tw2 10:15 Follow up: Response: No adverse reaction; Pain is unchanged, physician notified; RASS: tw2 Alert and Calm (0) 10:18 Drug: morphine 4 mg {Note: RASS 0.} Route: IVP; Site: left forearm; tw2 11:02 Follow up: Response: No adverse reaction; Pain is decreased; RASS: Alert and Calm (0) tw2 10:30 Drug: NS 0.9% 500 ml Route: IV; Rate: bolus; Site: left forearm; tw2 11:02 Follow up: Response: No adverse reaction; IV Status: Completed infusion; IV Intake: tw2 500ml 10:30 Drug: Ativan 1 mg Route: IVP; Site: left forearm; tw2 11:02 Follow up: Response: No adverse reaction; Pain is decreased tw2 Disposition: 13:07 Co-signature as Attending Physician, Ramon Baker MD. rn Disposition: 04/19/20 11:07 Discharged to Home. Impression: Unspecified abdominal pain. - Condition is Stable. - Discharge Instructions: Abdominal Pain, Adult. - Medication Reconciliation Form, Thank You Letter, Antibiotic Education, Prescription Opioid Use form. - Follow up: Private Physician; When: 2 - 3 days; Reason: Recheck today's complaints, Continuance of care, Re-evaluation by your physician. Signatures: Dispatcher [employer] EDLv Arteaga PA PA jmm Nieto, Roman, MD MD rn Wise, Tara, RN RN tw2 Corrections: (The following items were deleted from the chart) 11:24 11:07 04/19/2020 11:07 Discharged to Home. Impression: Unspecified abdominal pain. tw2 Condition is Stable. Forms are Medication Reconciliation Form, Thank You Letter, Antibiotic Education, Prescription Opioid Use. Follow up: Private Physician; When: 2 - 3 days; Reason: Recheck today's complaints, Continuance of care, Re-evaluation by your physician. [facility]
--- NOTE | 2020-04-19 11:07 | ER ---
Nurse's Notes [facility] Name: Marjan Fleming Age: 65 yrs Sex: Female : 1955 Arrival Date: 04/19/2020 Time: 08:42 Bed 5 Private MD: Lele Rahman H Diagnosis: Unspecified abdominal pain Presentation: 04/19 09:06 Chief complaint: Severe upper abdominal pain x 2 days. Coronavirus screen: At this hb time, the client does not indicate any symptoms associated with coronavirus-19. Ebola Screen: No symptoms or risks identified at this time. Initial Sepsis Screen: Does the patient meet any 2 criteria? No. Patient's initial sepsis screen is negative. Does the patient have a suspected source of infection? No. Patient's initial sepsis screen is negative. Risk Assessment: Do you want to hurt yourself or someone else? Patient reports no desire to harm self or others. Onset of symptoms was April 17, 2020. 09:06 Method Of Arrival: Ambulatory hb 09:06 Acuity: BLAYNE 3 hb Historical: - Allergies: 09:07 Bactrim DS; tw2 09:07 butorphanol tartrate; tw2 09:07 Fentanyl; tw2 09:07 metoclopramide HCl; tw2 09:07 Stadol; tw2 09:07 sulfamethoxazole (bulk); tw2 09:07 TRIMETHOPRIM; tw2 - PMHx: 09:07 HIV; Chronic pain; esophageal varices; Hepatitis; Bipolar disorder; Atrial Fib; COPD; tw2 Anxiety; Hypertension; Migraines; Panic Attacks; - PSHx: 09:07 Cholecystectomy; Appendectomy; Cardiac Cath; tw2 - Immunization history:: Adult Immunizations. - Social history:: Smoking status: . Screenin:07 Abuse screen: Denies threats or abuse. Nutritional screening: No deficits noted. tw2 Tuberculosis screening: No symptoms or risk factors identified. Fall Risk None identified. Assessment: 09:25 General: Appears in no apparent distress. uncomfortable, obese. Pain: Complains of pain tw2 in left upper quadrant and right upper quadrant. Neuro: Level of Consciousness is awake, alert, obeys commands, Oriented to person, place, time, situation. Cardiovascular: Heart tones S1 S2 Patient's skin is warm and dry. Respiratory: Airway is patent Respiratory effort is even, unlabored, Respiratory pattern is regular, symmetrical, Breath sounds are clear bilaterally. GI: Abdomen is round non-distended, obese, Bowel sounds Abd is soft X 4 quads Reports upper abdominal pain, bloating, nausea. : No signs and/or symptoms were reported regarding the genitourinary system. EENT: No signs and/or symptoms were reported regarding the EENT system. Derm: No signs and/or symptoms reported regarding the dermatologic system. Skin is fragile, is thin, with poor turgor Skin is dry. Musculoskeletal: Range of motion: intact in all extremities. 10:22 Reassessment: No changes from previously documented assessment. Patient and/or family tw2 updated on plan of care and expected duration. Pain level reassessed. Patient is alert, oriented x 3, equal unlabored respirations, skin warm/dry/pink. Patient states symptoms have not improved. 11:08 Reassessment: Patient appears in no apparent distress at this time. Patient and/or tw2 family updated on plan of care and expected duration. Pain level reassessed. Patient is alert, oriented x 3, equal unlabored respirations, skin warm/dry/pink. Patient states feeling better. Patient states symptoms have improved. 11:24 Reassessment: Patient appears in no apparent distress at this time. No changes from tw2 previously documented assessment. Patient and/or family updated on plan of care and expected duration. Pain level reassessed. Patient is alert, oriented x 3, equal unlabored respirations, skin warm/dry/pink. Vital Signs: 09:06 BP 151 / 107; Pulse 88; Resp 16; Temp 97.2; Pulse Ox 97% on R/A; Pain 10/10; hb 10:21 BP 165 / 81; Pulse 69; Resp 17; Pulse Ox 97% on R/A; Pain 9/10; tw2 11:03 BP 167 / 91; Pulse 67; Resp 17; Pulse Ox 95% on R/A; tw2 ED Course: 08:42 Patient arrived in ED. mr 08:42 Lele Rahman DO is Private Physician. mr 09:02 [facility] 09:02 Ramon Baker MD is Attending Physician. [facility] 09:02 Call light in reach. Pulse ox on. NIBP on. tw2 09:06 Karen Tovar, ASHLEY is Primary Nurse. tw2 09:07 Triage completed. hb 09:07 Arm band placed on. tw2 09:25 Inserted saline lock: 22 gauge in left forearm, using aseptic technique. Blood tw2 collected. 10:07 CT Abd/Pelvis - IV Contrast Only In Process Unspecified. EDMS 11:23 No provider procedures requiring assistance completed. IV discontinued, intact, tw2 bleeding controlled, No redness/swelling at site. Pressure dressing applied. Administered Medications: 09:32 Drug: Zofran (Ondansetron) 4 mg Route: IVP; Site: left forearm; tw2 10:15 Follow up: Response: No adverse reaction tw2 09:34 Drug: morphine 4 mg {Note: RASS 0.} Route: IVP; Site: left forearm; tw2 10:15 Follow up: Response: No adverse reaction; Pain is unchanged, physician notified; RASS: tw2 Alert and Calm (0) 10:18 Drug: morphine 4 mg {Note: RASS 0.} Route: IVP; Site: left forearm; tw2 11:02 Follow up: Response: No adverse reaction; Pain is decreased; RASS: Alert and Calm (0) tw2 10:30 Drug: NS 0.9% 500 ml Route: IV; Rate: bolus; Site: left forearm; tw2 11:02 Follow up: Response: No adverse reaction; IV Status: Completed infusion; IV Intake: tw2 500ml 10:30 Drug: Ativan 1 mg Route: IVP; Site: left forearm; tw2 11:02 Follow up: Response: No adverse reaction; Pain is decreased tw2 Intake: 11:02 IV: 500ml; Total: 500ml. tw2 Outcome: 11:07 Discharge ordered by MD. sorenson 11:23 Discharged to home ambulatory. tw2 11:23 Condition: stable 11:23 Discharge instructions given to patient, Instructed on discharge instructions, follow up and referral plans. Demonstrated understanding of instructions, follow-up care. 11:24 Patient left the ED. tw2 Signatures: Dispatcher [employer] EDMS Lv Boudreaux PA PA jmm Rivera, Mary mr Baxter, Heather, RN RN hb Wise, Tara, RN RN tw2 Corrections: (The following items were deleted from the chart) 09:43 09:25 Derm: No signs and/or symptoms reported regarding the dermatologic system. tw2 tw2
[2020-04-19 13:39] VITALS: TEMP 97.2
[2020-04-19 13:44] VITALS: BP 167/91; O2SAT 95
== END 2020-04-19 11:24 | disposition home or self-care (01) ==
LOC: ER 08:39
DX: R10.13 Epigastric pain (principal); I10 Essential (primary) hypertension; Z21 Asymptomatic human immunodeficiency virus [HIV] infection status; Z88.1 Allergy status to other antibiotic agents; Z88.2 Allergy status to sulfonamides; Z88.5 Allergy status to narcotic agent; Z88.8 Allergy status to other drugs, medicaments and biological substances
CPT/HCPCS: 96361; 85025; 80048; 36415; 80076; 83690; 74177; 96375; 96374; 99284; Q9967; J7040; J2405

== ENCOUNTER 2020-04-20 07:29 | Emergency (ER) | payer OTHER ==
--- OUTSIDE RECORDS SUMMARY | 2020-04-20 07:31 | XMS REPORT | Clinical Summary ---
:1955 Author Organization [facility] Address [address] [place] [address] Care Team Providers Name Role Phone Asked, [...] Telephone General Surgery Ramiro Mitchell MD after 04/20/2019 Surgical History Surgery Date Site/Laterality Comments ORTHOPEDIC SURGERY JOINT REPLACEMENT shoulder repla cement BREAST SURGERY cyst removed CHOLECYSTECTOMY APPENDECTOMY ARTHROPLASTY, SHOULDER, TOTAL 10/19/2016 Shoulder/Left Pr ocedure: REV. 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 Last Filed Vital Signs Not on file Plan of Treatment Date Type Specialty Care Team Description 04/21/2020 Office Visit Cardiothoracic Surgery Eliseo Glaser MD [address] [facility] [address] [place], [place] [address] [phone] Health Maintenance Due Date Last Done Comments CERVICAL CANCER SCREENING 01/22/1977 BREAST CANCER SCREENING 01/22/2006 COLONOSCOPY SCREENING 01/22/2006 SHINGLES VACCINES (#1) 01/22/2006 INFLUENZA VACCINE 12/22/2019 Implants Implanted Type Area Service Station Helper Device Shelf Model / Identifier Expiration Serial / Date Lot Versa-Dial/Comp Ti Std Taper Used W/25mm Glenoid Basplate - [id number] IPM N/A: N/A [employer] 01/22/2026 [id number] / Implanted: Qty: 1 on 10/19/2016 by Austin Bowles MD at [facility] IMPLANT / DEVICES [id number] 41mm Comprehensive Reverse Shoulder Glenosphere Ba - [id number] I PM N/A: N/A [employer] 11/21/2023 [id number] / Implanted: Qty: 1 on 10/19/2016 by Austin Bowles MD at [facility] IMPLANT / DEVICES [id number] Arcom Xl 44-41 Std +3 Humeral Brg - [id number] Left: [employer] 07/20/2017 XL [id number] / Implanted: Qty: 1 on 10/19/2016 by Austin Bowles MD at [facility] IMPLANT Shoulder / DEVICES [id number] Humeral Tray With Locking Ring +5 Left: [employer] 03/31/2026 [id number] / Implanted: Qty: 1 on 10/19/2016 by Austin Bowles MD at [facility] Shoulder / [id number] Results Not on fileafter 04/20/2019 Advance Directives For more information, please contact: [phone] Type Date Recorded Patient Him Assistant Explanati on Advance Directives, Living Will and Medical Power of Office Coordinator Receptionist
--- OUTSIDE RECORDS SUMMARY | 2020-04-20 07:32 | XMS REPORT | Continuity of Care Document ---
:1955 Author Organization [facility] t Address [address] [place] [address] Care Team Providers Name Role Phone Asked, Pcp Primary Care Physician Unavailable Luisana Maharaj NP Attending Clinician Jailyn JENKINS Attending Clinician Ronald DHILLON Attending Clinician Nahum SANCHEZ Attending Clinician Unavailable Provider Attending Clinician Curt Mitchell MD Attending Clinician DO SYL Attending Clinician Unavailable DO SYL Admitting Clinician Unavailable Payers Payer Name Policy Type Policy Effective Date Expiration Date Sour ce Number [facility] [id number] [address] [place]TE 00:00:00 [place]ism [id number] 2016- PresentHMO [facility] MEDICAIDUNITEDHC [id number] [address] [place] COMM STAR+ 00:00:00 Yazdanism [id number] 2016- PresentHMO Problems Condition Condition Condition Status [...] 00 s to drug Codeine Propensi Active [place] ty to 3-10 Methodi adverse 00:00: st reaction 00 s to drug Family History Family Member Diagnosis Comments Start Date Stop Date Source Natural father Hypertension Meza Yazdanism Natural father Kidney disease Rashida rodger EganYazdanism Social History Social Habit Start Date Stop Date Quantity Comments Source Sex Assigned At [facility] ethodist Exposure to Not sure [place] Metho dist SARS-CoV-2 (event) Cigarettes smoked 2016-11-03 2016-11-03 [place] Yazdanism current (pack per 00:00:00 00:00:00 day) - Reported Tobacco use and 2016-11-03 2016-11-03 Never used [facility] ethodist exposure 00:00:00 00:00:00 Alcohol intake 2016-11-03 2016-11-03 Current drinker [place] on Yazdanism 00:00:00 00:00:00 of alcohol (finding) Alcohol Comment 2016-09-23 2016-09-23 rare [facility] ethodist 00:00:00 00:00:00 Smoking Status Start [...] Future Scheduled 2019-12-22 INFLUENZA VACCINE [place] [facility] Test 00:00:00 [code = INFLUENZA VACCINE] Future Scheduled 2006-01-22 BREAST CANCER [facility] thodist Test 00:00:00 SCREENING [code = BREAST CANCER SCREENING] Future Scheduled 2006-01-22 COLONOSCOPY SCREENING [place] [facility] Test 00:00:00 [code = COLONOSCOPY SCREENING] Future Scheduled 2006-01-22 SHINGLES VACCINES [place] Test 00:00:00 (#1) [code = SHINGLES VACCINES (#1)] Future Scheduled 1977-01-22 Screening for [facility] thodist Test 00:00:00 malignant neoplasm of cervix (procedure) [code = 246877074] Encounters Start End Encounter Admission Attending Care Care Encounter Source Date/Time Date/Time Type Type Clinicians Facility Department ID 2020-04-14 2020-04-14 Telephone [facility] [id number] 00:00:00 00:00:00 [facility] [id number] [facility] [id number] Results Test Description Test Time Test [...] (qualifier value) Not Detected N URINALYSIS WITH [id number] 10:57:00 Test Item Value Reference Range Interpretation Comments Color (test code = UCOLR) Dk. Yellow Clarity (test code = UCLAR) Hazy Glucose (test code = UGLUC) NEGATIVE NEGATIVE N Bilirubin (test code = UBILI) NEGATIVE NEGATIVE N Ketones (test code = UKET) NEGATIVE NEGATIVE N Specific [place] (test code = 1.025 1.005-1.030 A USPGR) [...]
[2020-04-20] MEDS ORDERED: MORPHINE 4 MG/ML SYR ONE ×3 (08:04→11:21)
[2020-04-20] MEDS ORDERED: MAGNES/ALUMIN/SIMET 30ML UCUP ONE (08:06)
[2020-04-20] MEDS ORDERED: ONDANSETRON 4 MG (ODT) TAB ONE (08:09)
--- NOTE | 2020-04-20 09:17 | EDPHYS ---
Physician Documentation [facility] Name: Marjan Fleming Age: 65 yrs Sex: Female : 1955 Arrival Date: 04/20/2020 Time: 07:31 Bed 6 Private MD: ED Physician Ramon Baker HPI: 04/20 09:10 This 65 yrs old Female presents to ER via Ambulatory with complaints of rn Abdominal Pain. 09:10 The patient presents with abdominal pain in the epigastric area. Onset: The rn symptoms/episode began/occurred this morning. The symptoms do not radiate. Associated signs and symptoms: none. The symptoms are described as achy, burning. Modifying factors: The symptoms are alleviated by nothing, the symptoms are aggravated by food. Severity of pain: At its worst the pain was moderate in the emergency department the pain is unchanged. The patient has experienced similar episodes in the past, chronically. The patient has been recently seen at the [facility] Emergency Department, yesterday. Reports abd pain from hiatal hernia again, seen here yesterday with neg bloodwork and ct without acute findings, no fever, reports felt fine until ate biscuits with gravy this AM, then pain started again, no vomiting. Reports has appt tomorrow with surgeon to fix hiatal hernia. . Historical: - Allergies: 07:54 Bactrim DS; iw 07:54 butorphanol tartrate; iw 07:54 Fentanyl; iw 07:54 metoclopramide HCl; iw 07:54 Stadol; iw 07:54 sulfamethoxazole (bulk); iw 07:54 TRIMETHOPRIM; iw - Home Meds: 07:54 BuSpar Oral [Active]; Descovy Oral [Active]; Hydralazine Oral [Active]; lisinopril Oral iw [Active]; Metformin Oral [Active]; Metoprolol Tartrate Oral [Active]; Norvasc Oral [Active]; raltegravir Oral [Active]; sertraline Oral [Active]; - PMHx: 07:54 Anxiety; Atrial Fib; Bipolar disorder; Chronic pain; COPD; esophageal varices; iw Hepatitis; HIV; Hypertension; Migraines; Panic Attacks; - PSHx: 07:54 Cholecystectomy; Appendectomy; Cardiac Cath; iw - Immunization history:: Adult Immunizations. - Social history:: Smoking status: . - Family history:: not pertinent. - Hospitalizations: : No recent hospitalization is reported. ROS: 09:10 Constitutional: Negative for fever, chills, and weight loss, Eyes: Negative for injury, rn pain, redness, and discharge, Cardiovascular: Negative for chest pain, palpitations, and edema, Respiratory: Negative for shortness of breath, cough, wheezing, and pleuritic chest pain, Abdomen/GI: Negative for vomiting, diarrhea, and constipation, Back: Negative for injury and pain, : Negative for injury, bleeding, discharge, and swelling, MS/Extremity: Negative for injury and deformity, Skin: Negative for injury, rash, and discoloration, Neuro: Negative for headache, weakness, numbness, tingling, and seizure. Exam: 09:10 Constitutional: This is a well developed, well nourished patient who is awake, alert, rn and in no acute distress. Ambulatory to room without difficulty. Head/Face: Normocephalic, atraumatic. ENT: MMM Cardiovascular: Regular rate and rhythm. No pulse deficits. Respiratory: No increased work of breathing, no retractions or nasal flaring. Abdomen/GI: soft, mild epigastric tenderness Skin: Warm, dry MS/ Extremity: Pulses equal, no cyanosis. Neuro: Awake and alert, GCS 15 Vital Signs: 07:49 BP 170 / 98; Pulse 65; Resp 16; Temp 98.4; Pulse Ox 98% on R/A; Weight 86.18 kg; Height iw 5 ft. 11 in. (180.34 cm); Pain 9/10; 09:10 BP 134 / 74; Pulse 72; Resp 18; Pulse Ox 95% on R/A; tw2 10:28 BP 153 / 86; Pulse 66; Resp 17; Pulse Ox 95% on R/A; tw2 11:12 BP 143 / 74; Pulse 69; Resp 17; Pulse Ox 96% on R/A; tw2 07:49 Body Mass Index 26.50 (86.18 kg, 180.34 cm) iw MDM: 07:44 Patient medically screened. rn 09:10 Differential diagnosis: gastritis, gastroesophageal reflux disease, hiatal hernia. Data rn reviewed: vital signs, nurses notes, old medical records, and as a result, I will discharge patient. Counseling: I had a detailed discussion with the patient and/or guardian regarding: the historical points, exam findings, and any diagnostic results supporting the discharge/admit diagnosis, lab results, radiology results, the need for outpatient follow up, to return to the emergency department if symptoms worsen or persist or if there are any questions or concerns that arise at home. Response to treatment: the patient's symptoms have markedly improved after treatment, and as a result, I will discharge patient. Special discussion: I discussed with the patient/guardian in detail that at this point there is no indication for admission to the hospital. It is understood, however, that if the symptoms persist or worsen the patient needs to return immediately for re-evaluation. Based on the history and exam findings, there is no indication for further emergent testing or inpatient evaluation. I discussed with the patient/guardian the need to see the fullerette for further evaluation of the symptoms. I discussed with the patient/guardian the need to see the general surgeon for further evaluation of the symptoms. 04/20 08:34 Order name: NPO; Complete Time: 08:35 tw2 Administered Medications: 08:02 Drug: Zofran (Ondansetron) 4 mg Route: PO; tw2 08:49 Follow up: Response: No adverse reaction; Nausea unchanged; Nausea unchanged, provider tw2 notified 08:04 Drug: morphine 4 mg {Note: RASS 0.} Route: IM; Site: left deltoid; tw2 08:42 Follow up: Response: No adverse reaction; Pain is unchanged, physician notified; RASS: tw2 Alert and Calm (0) 08:22 Drug: GI Cocktail without - (Maalox Suspension 30 ml, Lidocaine Liquid 2 % 15 tw2 ml) Route: PO; 10:27 Follow up: Response: No adverse reaction tw2 08:48 Drug: morphine 4 mg {Note: RASS 0.} Route: IM; Site: left deltoid; tw2 10:35 Follow up: Response: No adverse reaction; Pain is unchanged, physician notified; RASS: tw2 Alert and Calm (0) 09:06 Drug: Phenergan 12.5 mg Route: IM; Site: right deltoid; tw2 10:35 Follow up: Response: No adverse reaction; Nausea is decreased tw2 11:08 Drug: morphine 4 mg {Note: RASS 0.} Route: IM; Site: left deltoid; tw2 11:20 Follow up: Response: No adverse reaction; Pain is unchanged, physician notified; RASS: tw2 Alert and Calm (0) Disposition: 04/20/20 09:16 Discharged to Home. Impression: Hiatal hernia, Chronic pain, not elsewhere classified. - Condition is Stable. - Discharge Instructions: Chronic Pain, Hiatal Hernia. - Medication Reconciliation Form, Thank You Letter, Antibiotic Education, Prescription Opioid Use form. - Follow up: Private Physician; When: As needed; Reason: Recheck today's complaints, Re-evaluation by your physician. - Problem is chronic. - Symptoms have improved. Signatures: Jacquelin Meier RN RN iw Ramon Baker MD MD rn Wise, Tara, RN RN tw2 Corrections: (The following items were deleted from the chart) 11: 09:16 04/20/2020 09:16 Discharged to Home. Impression: Hiatal hernia; Chronic pain, not tw2 elsewhere classified. Condition is Stable. Forms are Medication Reconciliation Form, Thank You Letter, Antibiotic Education, Prescription Opioid Use. Follow up: Private Physician; When: As needed; Reason: Recheck today's complaints, Re-evaluation by your physician. Problem is chronic. Symptoms have improved. rn
--- NOTE | 2020-04-20 09:17 | ER ---
Nurse's Notes [facility] Name: Marjan Fleming Age: 65 yrs Sex: Female : 1955 Arrival Date: 04/20/2020 Time: 07:31 Bed 6 Private MD: Diagnosis: Hiatal hernia;Chronic pain, not elsewhere classified Presentation: 04/20 07:49 Chief complaint: Patient states: was seen here yesterday for abd pain, is due to see a iw surgeon tomorrow at [facility] for a hiatal hernia, was feeling better yesterday but then at a biscuit and gravy this morning and pain came back. Coronavirus screen: At this time, the client does not indicate any symptoms associated with coronavirus-19. Ebola Screen: Patient negative for fever greater than or equal to 101.5 degrees Fahrenheit, and additional compatible Ebola Virus Disease symptoms Patient denies exposure to infectious person. Patient denies travel to an Ebola-affected area in the 21 days before illness onset. No symptoms or risks identified at this time. Initial Sepsis Screen: Does the patient meet any 2 criteria? No. Patient's initial sepsis screen is negative. Does the patient have a suspected source of infection? No. Patient's initial sepsis screen is negative. Risk Assessment: Do you want to hurt yourself or someone else? Patient reports no desire to harm self or others. Onset of symptoms was April 20, 2020. 07:49 Method Of Arrival: Ambulatory iw 07:49 Acuity: BLAYNE 4 iw Historical: - Allergies: 07:54 Bactrim DS; iw 07:54 butorphanol tartrate; iw 07:54 Fentanyl; iw 07:54 metoclopramide HCl; iw 07:54 Stadol; iw 07:54 sulfamethoxazole (bulk); iw 07:54 TRIMETHOPRIM; iw - Home Meds: 07:54 BuSpar Oral [Active]; Descovy Oral [Active]; Hydralazine Oral [Active]; lisinopril Oral iw [Active]; Metformin Oral [Active]; Metoprolol Tartrate Oral [Active]; Norvasc Oral [Active]; raltegravir Oral [Active]; sertraline Oral [Active]; - PMHx: 07:54 Anxiety; Atrial Fib; Bipolar disorder; Chronic pain; COPD; esophageal varices; iw Hepatitis; HIV; Hypertension; Migraines; Panic Attacks; - PSHx: 07:54 Cholecystectomy; Appendectomy; Cardiac Cath; iw - Immunization history:: Adult Immunizations. - Social history:: Smoking status: . - Family history:: not pertinent. - Hospitalizations: : No recent hospitalization is reported. Screenin:28 Abuse screen: Denies threats or abuse. Nutritional screening: No deficits noted. tw2 Tuberculosis screening: No symptoms or risk factors identified. Fall Risk None identified. Assessment: 07:45 General: Appears in no apparent distress. uncomfortable, obese, unkempt, Behavior is tw2 calm, cooperative, appropriate for age. Pain: Complains of pain in abdomen. Neuro: Level of Consciousness is awake, alert, obeys commands, Oriented to person, place, time, situation. Cardiovascular: Patient's skin is warm and dry. Respiratory: Airway is patent Respiratory effort is even, unlabored, Respiratory pattern is regular, symmetrical. GI: Abdomen is round non-distended, obese, Bowel sounds present X 4 quads. Abd is soft X 4 quads Reports upper abdominal pain. : No signs and/or symptoms were reported regarding the genitourinary system. EENT: No signs and/or symptoms were reported regarding the EENT system. Derm: Skin is fragile, is thin, Skin is dry. Musculoskeletal: Range of motion: intact in all extremities. 07:55 Reassessment: medication brought to exam room, pt states "im not drinking that, it tw2 makes me nauseous", provider notified Jadyn ODT offered. 07:58 Reassessment: medication brought to exam room and pt states "i think i am just going to tw2 go next door because i want to be hydrated", provider and charge nurse notified. 08:00 Reassessment: pt agreeable at this time to try medication as ordered. tw2 08:32 Reassessment: pt specification writer light, when answered states "can i get some ice water", tw2 provider notified and ordered pt as NPO at this time, pt educated as to the need for NPO status at this time per provider. 09:06 Reassessment: pt c/o nauseousness, provider notified and medicated as ordered. tw2 10:33 Reassessment: Patient and/or family updated on plan of care and expected duration. Pain tw2 level reassessed. Patient is alert, oriented x 3, equal unlabored respirations, skin warm/dry/pink. pt moaning and holding stomach upon entry into exam room, pt states "no im not ready to go, i am still hurting", provider notified. 11:11 Reassessment: Patient and/or family updated on plan of care and expected duration. Pain tw2 level reassessed. Patient is alert, oriented x 3, equal unlabored respirations, skin warm/dry/pink. 'its not all the way better but it is some". 11:20 Reassessment: Patient appears in no apparent distress at this time. Patient and/or tw2 family updated on plan of care and expected duration. Pain level reassessed. Patient is alert, oriented x 3, equal unlabored respirations, skin warm/dry/pink. Vital Signs: 07:49 BP 170 / 98; Pulse 65; Resp 16; Temp 98.4; Pulse Ox 98% on R/A; Weight 86.18 kg; Height iw 5 ft. 11 in. (180.34 cm); Pain 9/10; 09:10 BP 134 / 74; Pulse 72; Resp 18; Pulse Ox 95% on R/A; tw2 10:28 BP 153 / 86; Pulse 66; Resp 17; Pulse Ox 95% on R/A; tw2 11:12 BP 143 / 74; Pulse 69; Resp 17; Pulse Ox 96% on R/A; tw2 07:49 Body Mass Index 26.50 (86.18 kg, 180.34 cm) iw ED Course: 07:31 Patient arrived in ED. as 07:43 Bed in low position. Call light in reach. Pulse ox on. NIBP on. Warm blanket given. tw2 07:44 Ramon Baker MD is Attending Physician. rn 07:48 Karen Tovar, ASHLEY is Primary Nurse. tw2 07:53 Triage completed. iw 07:53 Arm band placed on. iw 10:26 No provider procedures requiring assistance completed. tw2 10:34 Awaiting re-evaluation by ER provider, Awaiting: prior to discharge. tw2 11:12 Patient did not have IV access during this emergency room visit. tw2 Administered Medications: 08:02 Drug: Zofran (Ondansetron) 4 mg Route: PO; tw2 08:49 Follow up: Response: No adverse reaction; Nausea unchanged; Nausea unchanged, provider tw2 notified 08:04 Drug: morphine 4 mg {Note: RASS 0.} Route: IM; Site: left deltoid; tw2 08:42 Follow up: Response: No adverse reaction; Pain is unchanged, physician notified; RASS: tw2 Alert and Calm (0) 08:22 Drug: GI Cocktail without - (Maalox Suspension 30 ml, Lidocaine Liquid 2 % 15 tw2 ml) Route: PO; 10:27 Follow up: Response: No adverse reaction tw2 08:48 Drug: morphine 4 mg {Note: RASS 0.} Route: IM; Site: left deltoid; tw2 10:35 Follow up: Response: No adverse reaction; Pain is unchanged, physician notified; RASS: tw2 Alert and Calm (0) 09:06 Drug: Phenergan 12.5 mg Route: IM; Site: right deltoid; tw2 10:35 Follow up: Response: No adverse reaction; Nausea is decreased tw2 11:08 Drug: morphine 4 mg {Note: RASS 0.} Route: IM; Site: left deltoid; tw2 11:20 Follow up: Response: No adverse reaction; Pain is unchanged, physician notified; RASS: tw2 Alert and Calm (0) Outcome: 09:16 Discharge ordered by . rn 11:20 Discharged to home ambulatory. tw2 11:20 Condition: stable 11:20 Discharge instructions given to patient, Instructed on discharge instructions, follow up and referral plans. Demonstrated understanding of instructions, follow-up care. 11:21 Patient left the ED. tw2 Signatures: Radha Simons Irene, RN RN iw Nieto, Roman, MD MD rn Wise, Tara, RN RN tw2 Corrections: (The following items were deleted from the chart) 10:34 10:33 Reassessment: Patient and/or family updated on plan of care and expected tw2 duration. Pain level reassessed. Patient is alert, oriented x 3, equal unlabored respirations, skin warm/dry/pink. pt states "no im not ready to go, i am still hurting", provider notified. tw2 10:35 10:34 Awaiting re-evaluation by ER provider, tw2 tw2 11:20 11:08 morphine 4 mg IM in left deltoid tw2 tw2
[2020-04-20] MEDS ORDERED: PROMETHAZINE INJ 25 MG/ML AMP ONE (09:19)
[2020-04-20 12:51] VITALS: TEMP 98.4
[2020-04-20 12:57] VITALS: BP 143/74; O2SAT 96
== END 2020-04-20 11:21 | disposition home or self-care (01) ==
LOC: ER 07:29
DX: K44.9 Diaphragmatic hernia without obstruction or gangrene (principal); G89.29 Other chronic pain; R10.13 Epigastric pain; I48.91 Unspecified atrial fibrillation; F31.9 Bipolar disorder, unspecified; J44.9 Chronic obstructive pulmonary disease, unspecified; I10 Essential (primary) hypertension; F41.0 Panic disorder [episodic paroxysmal anxiety]
CPT/HCPCS: 96372; 99283; J2550

== ENCOUNTER 2020-05-24 15:11 | Emergency (ER) | payer OTHER ==
--- OUTSIDE RECORDS SUMMARY | 2020-05-24 15:15 | XMS REPORT | Clinical Summary ---
:1955 Author Organization [facility] Address [address] [place] [address] Care Team Providers Name Role Phone Asked, No Pcp Primary Care Provider Unavailable Allergies Active Allergy Reactions Severity Noted Date Comments Sulfamethoxazole-Trimethoprim Other (See Comments) High 08/2019 Stomach pain Metoclopramide Hcl 09/23/2016 Butorphanol Hallucinations 04/25/2020 Medications Medication Sig Dispensed Refills Start End Date Status Date lisinopril Take 40 mg by 0 Activ e (PRINIVIL,ZESTRIL mouth 2 (two) ) 40 mg tablet times a day. metoprolol Take 100 mg by 0 Acti ve tartrate mouth 2 (two) (LOPRESSOR) 100 times a day. mg tablet amLODIPine Take 10 mg by 0 Activ e (NORVASC) 10 mg mouth daily. tablet LORAZepam Take 2 mg by 0 Active (ATIVAN) 2 MG mouth nightly as tablet needed for anxiety. sertraline Take 200 mg by 0 Acti ve (ZOLOFT) 100 MG mouth daily. tablet DESCOVY 200-25 mg Take 1 tablet by 5 Active tablet mouth daily. 7 ISENTRESS 400 mg Take 400 mg by 3 Active tablet mouth 2 (two) 7 times a day. esomeprazole Take 40 mg by 0 Act bruno (NexIUM) 40 MG mouth 2 (two) capsule times a day. clobetasol Apply 1 0 Active (TEMOVATE) 0.05 % application ointment topically 2 (two) times a day. (affected area in groin) hydrALAZINE Take 50 mg by 0 Acti ve (APRESOLINE) 50 mouth nightly. MG tablet busPIRone Take 20 mg by 0 Active (BUSPAR) 10 MG mouth every tablet morning. busPIRone Take 20 mg by 0 Active (BUSPAR) 10 MG mouth nightly. tablet mirtazapine Take 15 mg by 0 Acti ve (REMERON) 15 MG mouth nightly as tablet needed (insomnia). LORAZepam Take 2 mg by 0 Active (ATIVAN) 2 MG mouth every tablet morning. acetaminophen Take 1,000 mg by 0 Active (TYLENOL) 500 MG mouth 2 (two) tablet times a day as needed for headaches. albuterol sulfate Inhale 1 puff 0 Active 90 mcg/actuation every 4 (four) aero powdr breath hours as needed act w/sensor (shortness of breath or wheezing). budesonide-formot Inhale 1 puff 0 Active Buddy (SYMBICORT) every morning. 160-4.5 mcg/actuation inhaler montelukast Take 10 mg by 0 Acti ve (SINGULAIR) 10 mg mouth nightly. tablet naloxone 4 1 spray into 2 each 0 Active mg/actuation each nostril 0 spray,non-aerosol once as needed (breathing less than 8 per minute or inability to arouse) for up to 2 doses. amIODarone Take 1 tablet 30 tablet 0 06/02/19 Activ e (PACERONE) 200 MG (200 mg total) 0 21 tablet by mouth daily for 30 days. pantoprazole Take 1 tablet 60 tablet 0 06/02/19 Act bruno (PROTONIX) 40 MG (40 mg total) by 0 21 EC tablet mouth 2 (two) times a day for 30 days. simethicone Chew 1 tablet 120 tablet 0 06/02/19 Act bruno (MYLICON) 80 MG (80 mg total) 0 21 chewable tablet every 6 (six) hours for 30 days. ipratropium-albut Take 3 mL by 360 mL 0 06/02/19 Active Buddy (DUO-NEB) nebulization 0 21 0.5-2.5 mg/3 mL every 4 (four) nebulizer hours while awake for 30 days. budesonide Take 2 mL (0.5 120 mL 0 06/02/19 Acti ve (PULMICORT) 0.5 mg total) by 0 21 mg/2 mL nebulizer nebulization 2 solutionIndicatio (two) times a ns: Simple day for 30 days. chronic Use in place of bronchitis (HCC) symbicort. apixaban Take 1 tablet (5 60 tablet 0 06/02/19 Act bruno (ELIQUIS) 5 mg mg total) by 0 21 tablet mouth 2 (two) times a day for 30 days. ARIPiprazole Take 5 mg by 0 04/25/20 Disc ontinued (ABILIFY) 5 MG mouth. 20 (Yun ent tablet Reported) triamterene-hydro Take 1 tablet by 0 04/26 Discontinued chlorothiazid mouth daily. 20 (Er ror) (MAXZIDE-25) 37.5-25 mg per tablet acetaminophen-cod Take 1 tablet by 28 tablet 0 05/10 eine (TYLENOL mouth every 6 0 20 WITH CODEINE #3) (six) hours as 300-30 mg per needed for tabletIndications moderate pain : acute pain for up to 7 days .acute pain. apixaban Take 1 tablet (5 0 05/03/20 Dis continued (ELIQUIS) 5 mg mg total) by 0 20 tablet mouth 2 (two) times a day. lidocaine Place 1 patch on 7 patch 0 05/10/20 Exp ired (LIDODERM) 5 % the skin daily 0 20 for 7 days. Remove & Discard patch within 12 hours or as directed by methocarbamoL Take 2 tablets 56 tablet 0 05/10/20 E xpired (ROBAXIN) 500 MG (1,000 mg total) 0 20 tablet by mouth 4 (four) times a day for 7 days. ARIPiprazole Take 1 tablet (5 1 tablet 0 05/03/20 Discontinued (ABILIFY) 5 MG mg total) by 0 20 (S top Taking at tablet mouth once for 1 Dis charge) dose. 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 7 Encounters Date Type Specialty Care Team Description 05/13/2020 Orders Only Cardiothoracic Provider, Surgery MD Rochelle 05/09/2020 Telephone Cardiothoracic Carol Ann, Surgery Sarai Lieberman NP 05/09/2020 Telephone General Surgery Eliseo Arce MD 05/08/2020 Telephone General Surgery Eliseo Arce MD 05/07/2020 Telephone General Surgery Eliseo Arce MD 05/05/2020 Telephone General Surgery Eliseo Arce, Diarrhea, u nspecified MD type (Primary D x) 04/28/2020 Anesthesia Event Cardiothoracic Kathrin, Tomas Surgery MD Hossein Rodriguez Alka Vinu 04/28/2020 Surgery Cardiothoracic Eliseo Arce, ROBOTIC ASSGabriela OLIVEIRA Surgery LAPAROSCOPIC HI ATAL HERNIA REPAIR W ITH TOUPET FUNDOPLI CATION 04/25/2020 - Hospital General Internal Eliseo Arce, Food intol erance in adult (Primary Dx); 05/03/2020 Encounter Medicine Simple chronic bronchitis (HCC) 04/25/2020 Office Visit Cardiothoracic Eliseo Arce, Hernia, hiat al (Primary Dx); Surgery Esophageal dysp hagia 04/25/2020 Hospital Radiology Eliseo Arce, Dysphagia, uns pecified type; Encounter Hiatal hernia 04/25/2020 Travel 04/24/2020 Prep for Surgery Cardiothoracic Carol Ann, Surgery Sarai Lieberman NP 04/22/2020 Telephone Cardiothoracic Nain Garrison MA 04/22/2020 Travel 04/21/2020 Emergency Emergency Medicine Jolene Tapia-Te Epigastri c pain (Primary Dx); MD Mario Hiatal hernia; Chronic abdomin al pain 04/21/2020 Orders Only Cardiothoracic Meisenlion, Dysphagia, un specified type (Primary Dx); Surgery Sarai Lieberman NP Hiatal hernia 04/16/2020 Telephone Cardiothoracic Nain Maharaj NP 04/16/2020 Telephone General Surgery Eliseo Arce MD 04/10/2020 Telephone General Surgery Eliseo Arce MD 04/07/2020 Telephone Cardiothoracic Nain Sidhu MA 04/01/2020 Orders Only Cardiothoracic Provider, Surgery MD Rochelle 03/31/2020 Travel 03/27/2020 Telephone General Surgery Ramiro Mitchell MD after 05/24/2019 Surgical History Surgery Date Site/Laterality Comments ORTHOPEDIC SURGERY JOINT REPLACEMENT shoulder repla cement BREAST SURGERY cyst removed CHOLECYSTECTOMY APPENDECTOMY ARTHROPLASTY, SHOULDER, TOTAL Shoulder/Left Pr ocedure: REV. TOTAL SHOULDER 7 ARTHROPLASTY, RE MOVAL OF HARDWARE ; Surg kerry: Austin Bowles MD; Location: [facility] 19 OR; Serv ice: Orthopedics; La terality: Left; Medical devices from this surgery are in t he Implants section. REPAIR, HIATAL HERNIA, Abdomen/N/A Procedure : ROBOTIC ASSISTED LAPAROSCOPIC, ROBOT-ASSISTED 0 LAP AROSCOPIC HIATAL HERNIA REPAIR WITH TOUP ET FUNDOPLICATION; Surgeon: Eliseo Arce MD ; Location: [facility]; Service: Thoracic; Later ality: N/A; Medical devices from this surgery are in t he Implants section. ESOPHAGOGASTRODUODENOSCOPY N/A Proce dure: (EGD) 0 Esophagogastrodu odenoscopy (Egd), Endoflip; Surgeon: Eliseo Arce MD ; Location: [facility]; Service: Thoracic; Later ality: N/A; Medical devices from this surgery are in t he Implants section. Medical History Medical History Date Comments HIV disease (HCC) Hypertension controlled with med History of panic attacks Claustrophobia Acid reflux controlled with med History of transfusion 2014 post surgery Hepatitis C Family History Medical History Relation Name Comments Hypertension Father Kidney disease Father Relation Name Status Comments Father Mother Social History Tobacco Use Types Packs/Day Years Used Date Former Smoker 0.5 Quit: 01/2020 Smokeless Tobacco: Never Used Tobacco Cessation: Ready to Quit: Yes Alcohol Use Drinks/Week oz/Week Comments Yes rare Sex Assigned at Date Recorded Not on file Job Start Date Occupation Industry Not on file Not on file Not on file COVID-19 Exposure Response Date Recorded In the last month, have you been in contact with No / Unsure 04/25/2020 9:43 AM [employer] TE[employer]ER someone who was confirmed or suspected to have Coronavirus / COVID-19? Last Filed Vital Signs Vital Sign Reading Time Taken Comments Blood Pressure 139/85 05/03/2020 11:32 AM [employer] TE[employer]ER Pulse 102 05/03/2020 11:32 AM [employer] AND HOME [employer] TE[employer]ER Temperature 36.1 C (97 F) 05/03/2020 11:32 AM [employer] HOME [employer] TE[employer]ER Respiratory Rate 17 05/03/2020 11:32 AM [employer] AND HOME [employer] TEACHER Oxygen Saturation 93% 05/03/2020 11:32 AM [employer] AND HOME HE[employer] TEACHER Inhaled Oxygen Concentration - - Weight 101 kg (222 lb 1.6 oz) 05/03/2020 4:40 AM [employer] AND HOME HE[employer]ES TEACHER Height 162.6 cm (5' 4") 04/25/2020 11:51 AM [employer] AND HOME HE[employer] TE[employer]ER Body Mass Index 38.12 04/25/2020 11:51 AM [employer] AND HOME HEALTH AIDES TEACHER Plan of Treatment Date Type Specialty Care Team Description 06/02/2020 Office Visit Cardiothoracic Surgery Eliseo Arce MD [address] [facility] [address] [place], [place] [address] [phone] 06/24/2020 Office Visit Family Medicine Corin Landeros MD [address] [facility] [address] [place], [place] [address] Health Maintenance Due Date Last Done Comments DIABETES: RETINAL EYE EXAM 01/22/1966 DIABETIC FOOT EXAM 01/22/1966 COVID-19 VACCINE (#1) 1972 CERVICAL CANCER SCREENING 01/22/1977 BREAST CANCER SCREENING 01/22/2006 COLONOSCOPY SCREENING 01/22/2006 SHINGLES VACCINES (#1) 01/22/2006 INFLUENZA VACCINE 12/22/2019 03/08/2017, 01/30/2014, 2011, Additional history exists Implants Implanted Type Area Telephone Coin Box Collector Device Shelf Model / Identifier Expiration Serial / Date Lot Versa-Dial/Comp Ti Std Taper Used W/25mm Glenoid Basp late - [id number] IMPLANT N/A: N/A [employer] 01/22/2026 [id number] / Implanted: Qty: 1 on 10/19/2016 by Austin Bowles MD at [facility] DEVICES / [id number] 41mm Comprehensive Reverse Shoulder Glenosphere Ba - [id number] [id number] IMPLANT N/A: N/A [employer] 11/21/2023 [id number] / Implanted: Qty: 1 on 10/19/2016 by Austin Bowles MD at [facility] DEVICES / [id number] Arcom Xl 44-41 Std +3 Humeral Brg - [id number] IMPLANT Left: [employer] 07/20/2017 XL [id number] / Implanted: Qty: 1 on 10/19/2016 by Austin Bowles MD at [facility] DEVICES Shoulder / [id number] Catheter Endoflip 8cm Measurement - [id number] Surgical N/A: N/A CROSPON 10/17/2021 EF [id number] / Implanted: Qty: 1 on 04/28/2020 at [facility] Implants; / Expanders; [id number] Extenders; Surgical Wires Bivins Perp Vasclr Ptfe 1.2x10cm 1.65mm - [id number] Vascular N/A: N/A BARD PERIPHERAL 10/17/2024 [id number] / Implanted: Qty: 1 on 04/28/2020 at [facility] Graft VA SCULAR / [id number] Bivins Perph Vasclr Ptfe 1.2x10cm 1.65mm - [id number] Vascular N/A: N/A BARD PERIPHERAL 10/17/2024 [id number] / Implanted: Qty: 1 on 04/28/2020 at [facility] Graft VA SCULAR / [id number] Humeral Tray With Locking Ring +5 Left: [employer] 03/31/2026 [id number] / Implanted: Qty: 1 on 10/19/2016 by Austin Bowles MD at [facility] Shoulder / [id number] Procedures Procedure Name Priority Date/Time Associated Comments Diagnosis [id number] Routine 05/07/2020 ESTIMATED GFR Routine 05/02/2020 9:08 Results fo r this AM [employer] TE[employer]ER procedure are i n the results section. MAGNESIUM LEVEL Routine 05/02/2020 9:08 Results for this AM [employer] TE[employer]ER procedure are i n the results section. HC COMPLETE BLD COUNT Routine 05/02/2020 9:08 Re sults for this W/AUTO DIFF AM [employer] HOME [employer] TE[employer]ER procedure are i n the results section. BASIC METABOLIC PANEL Routine 05/02/2020 9:08 Re sults for this AM [employer] HOME [employer] TE[employer]ER procedure are i n the results section. CBC HEMOGRAM Routine 05/01/2020 5:20 Results for this AM [employer] TE[employer]ER procedure are i n the results section. THYROID STIMULATING Routine 05/01/2020 4:00 Resu lts for this HORMONE AM [employer] AND HOME HEALTH [employer]IDES TEACHER procedure are i n the results section. HEPATIC FUNCTION PANEL Routine 05/01/2020 4:00 R esults for this AM [employer] HOME [employer] TEACHER procedure are i n the results section. ESTIMATED GFR Routine 05/01/2020 4:00 Results fo r this AM [employer] TEACHER procedure are i n the results section. BASIC METABOLIC PANEL Routine 05/01/2020 4:00 Re sults for this AM [employer] HOME [employer] TE[employer]ER procedure are i n the results section. US DUPLEX VENOUS UPPER STAT 04/30/2020 5:36 R esults for this EXTREMITY BILATERAL PM [employer] TE[employer]ER procedur e are in the results section. XR CHEST 2 VW Routine 04/30/2020 4:18 Results fo r this PM [employer] TE[employer]ER procedure are i n the results section. MIDLINE INSERTION Routine 04/30/2020 11:14 Result s for this ATTEMPT - UNSUCCESSFUL AM [employer] AND HOME [employer] A[employer] TEACHER proce dure are in the results section. XR ABDOMEN 1 VW STAT 04/30/2020 9:45 Results for this PORTABLE AM [employer] HOME [employer] TEACHER procedure are i n the results section. ECG 12-LEAD STAT 04/30/2020 9:06 Results for this AM [employer] HOME [employer] TEACHER procedure are i n the results section. WV AN ELECTIVE Routine 04/28/2020 2:57 Results f or this ENDOTRACHEAL AIRWAY PM [employer] [facility] TEACHER procedur e are in the results section. POC GLUCOSE Routine 04/28/2020 9:01 Results for this AM [employer] TE[employer]ER procedure are i n the results section. SURGICAL PATHOLOGY Routine 04/28/2020 8:27 Resul ts for this REQUEST AM [employer] TEACHER procedure are i n the results section. TYPE AND SCREEN Routine 04/28/2020 2:11 Results for this AM [employer] TE[employer]ER procedure are i n the results section. ESTIMATED GFR Routine 04/28/2020 2:11 Results fo r this AM [employer] TEACHER procedure are i n the results section. PARTIAL THROMBOPLASTIN Routine 04/28/2020 2:11 R esults for this TIME (PTT) AM [employer] HOME [employer] TEACHER procedure are i n the results section. PROTHROMBIN TIME WITH Routine 04/28/2020 2:11 Re sults for this INR AM [employer] AND HOME HEALTH A[employer] TEACHER procedure are i n the results section. PHOSPHORUS LEVEL Routine 04/28/2020 2:11 Results for this AM [employer] TEACHER procedure are i n the results section. MAGNESIUM LEVEL Routine 04/28/2020 2:11 Results for this AM [employer] HOME [facility] TEACHER procedure are i n the results section. HC COMPLETE BLD COUNT Routine 04/28/2020 2:11 Re sults for this W/AUTO DIFF AM [employer] HOME [employer] TEACHER procedure are i n the results section. BASIC METABOLIC PANEL Routine 04/28/2020 2:11 Re sults for this AM [employer] HOME [employer] TEACHER procedure are i n the results section. POC GLUCOSE Routine 04/27/2020 11:38 Results for this PM [employer] TEACHER procedure are i n the results section. POC GLUCOSE Routine 04/27/2020 8:14 Results for this PM [employer] TE[employer]ER procedure are i n the results section. TTE COMPLETE, WO Routine 04/27/2020 3:00 Results for this CONTRAST, W DOPPLER PM [employer] TE[employer]ER procedur e are in ([id number]) the results section. POC GLUCOSE Routine 04/27/2020 12:30 Results for this PM [employer] TEACHER procedure are i n the results section. ESTIMATED GFR Routine 04/27/2020 6:34 Results fo r this AM [employer] TEACHER procedure are i n the results section. BASIC METABOLIC PANEL Routine 04/27/2020 6:34 Re sults for this AM [employer] HOME [employer] TEACHER procedure are i n the results section. POC GLUCOSE Routine 04/26/2020 9:18 Results for this PM [employer] TEACHER procedure are i n the results section. ECG 12-LEAD Routine 04/26/2020 8:24 Results for this PM [employer] TE[employer]ER procedure are i n the results section. COVID-19 QUALITATIVE Routine 04/26/2020 3:44 Res ults for this PCR PM [employer] TEACHER procedure are i n the results section. MISCELLANEOUS REFERRAL Routine 04/26/2020 3:05 R esults for this TEST AM [employer] AND HOME HEALTH AIDES TEACHER procedure are i n the results section. ESTIMATED GFR Routine 04/26/2020 3:05 Results fo r this AM [employer] HOME [employer] TEACHER procedure are i n the results section. CD 4 SUBSET Routine 04/26/2020 3:05 Results for this AM [employer] HOME [employer] TEACHER procedure are i n the results section. PHOSPHORUS LEVEL Routine 04/26/2020 3:05 Results for this AM [facility] [employer] HOME [facility] TEACHER procedure are i n the results section. MAGNESIUM LEVEL Routine 04/26/2020 3:05 Results for this AM [employer] HOME [facility] TEACHER procedure are i n the results section. BASIC METABOLIC PANEL Routine 04/26/2020 3:05 Re sults for this AM [employer] HOME [employer] TEACHER procedure are i n the results section. HC COMPLETE BLD COUNT Routine 04/26/2020 3:05 Re sults for this W/AUTO DIFF AM [employer] HOME [employer] TEACHER procedure are i n the results section. POTASSIUM LEVEL Routine 04/25/2020 9:04 Results for this PM [employer] TEACHER procedure are i n the results section. ESTIMATED GFR STAT 04/25/2020 6:51 Results fo r this PM [employer] HOME [employer] TEACHER procedure are i n the results section. PHOSPHORUS LEVEL STAT 04/25/2020 6:51 Results for this PM [employer] [facility] TEACHER procedure are i n the results section. MAGNESIUM LEVEL STAT 04/25/2020 6:51 Results for this PM [employer] TEACHER procedure are i n the results section. BASIC METABOLIC PANEL STAT 04/25/2020 6:51 Re sults for this PM [employer] HOME [employer] TEACHER procedure are i n the results section. HC COMPLETE BLD COUNT STAT 04/25/2020 6:51 Re sults for this W/AUTO DIFF PM [employer] HOME [employer] TEACHER procedure are i n the results section. FL ESOPHAGRAM DOUBLE Routine 04/25/2020 11:31 Dysphagia, Res ults for this CONTRAST AM [employer] AND HOME HEALTH AIDES TEACHER unspecified type procedure are in Hiatal hernia the results section. CT CHEST WO CONTRAST STAT 04/21/2020 8:15 Res ults for this ABDOMEN WO CONTRAST AM [employer] HOME [employer] TEACHER procedur e are in PELVIS WO CONTRAST the resul ts section. ESTIMATED GFR STAT 04/21/2020 7:22 Results fo r this AM [employer] AND HOME HE[employer] A[employer]ES TEACHER procedure are i n the results section. LACTIC ACID LEVEL, STAT 04/21/2020 7:22 Resul ts for this SEPSIS - NOW AND REPEAT AM [facility] [employer] AND HOME HE[employer] A[facility] TEACHER proc edure are in 2X EVERY 3 HOURS the results section. LIPASE LEVEL STAT 04/21/2020 7:22 Results for this AM [employer] AND HOME HEALTH [employer] TEACHER procedure are i n the results section. COMPREHENSIVE METABOLIC STAT 04/21/2020 7:22 Results for this PANEL AM [employer] AND HOME HEALTH AIDES TEACHER procedure are i n the results section. HC COMPLETE BLD COUNT STAT 04/21/2020 7:22 Re sults for this W/AUTO DIFF AM [employer] AND HOME [employer] A[employer] TEACHER procedure are i n the results section. after 05/24/2019 Results Miscellaneous Lab Result (05/07/2020) Specimen Blood Narrative Performed At This result has an attachment that is no t available. Estimated GFR (05/02/2020 9:08 AM HOME CARE AND HOME HEALTH AIDES TEACHER)Only the most recent of7 resultswithin the time period is included. Estimated GFR 52 (A) mL/min/1.73 [facility] Comment: m2 HOSPITAL Catergory Units Interpretation G1 >=90 Normal or high G2 60-89 Mildly decreased G3a 45-59 Mildly to moderately decreas ed G3b 30-44 Moderately to severely decre ased G4 15-29 Severely decreased G5 <15 Kidney failure The eGFR was calculated using the Chronic Kidney Disea se Epidemiology Collaboration (CKD-EPI) equation. Interpretation is based on recommendations of the National Kidney Foundation-Kidney Disease Outcomes Bandar lity Initiative (NKF-KDOQI) published in 2014. Specimen Plasma Performing Organization Address City/State/ZIP Code Phon e Number [facility] DEPARTMENT OF PATHOLOGY AND [address] [place], [place] [address] GENOMIC MEDICINE VILLALBA MORMON [address] [address] CBC with platelet and differential (05/02/2020 9:08 AM HOME CARE AND HOME HEALTH AIDES TEACHER)Only the most recent of5 resultswithin the time period is included. WBC 6.33 4.50 - 11.00 [facility] k/uL HOSPITAL RBC 4.23 4.20 - 5.50 [facility] m/uL HOSPITAL HGB 10.3 (L) 12.0 - 16.0 [facility] g/dL HOSPITAL HCT 36.3 (L) 37.0 - 47.0 % [facility] MCV 85.8 82.0 - 100.0 [facility] MCH 24.3 (L) 27.0 - 34.0 pg [facility] MCHC 28.4 (L) 31.0 - 37.0 [facility] gdL [facility] RDW - SD 52.8 37.0 - 55.0 fL [facility] MPV 9.8 8.8 - 13.2 fL [facility] Platelet count 249 150 - 400 k/uL [facility] Nucleated RBC 0.50 /100 WBC [facility] Neutrophils 71.1 (H) 39.0 - 69.0 % [facility] Lymphocytes 14.8 (L) 25.0 - 45.0 % [facility] Monocytes 9.8 0.0 - 10.0 % [facility] Eosinophils 3.0 0.0 - 5.0 % [facility] Basophils 0.5 0.0 - 1.0 % [facility] Immature granulocytes 0.8Comment: 0.0 - 1.0 % [facility] "Immature HOSPITAL granulocytes" (promyelocytes , myelocytes, metamyelocytes ) Specimen Plasma Performing Organization Address City/[facility] Phon e Number [facility] DEPARTMENT OF PATHOLOGY AND [address] [place] [phone] GENOMIC MEDICINE [address] [address] Magnesium level (05/02/2020 9:08 AM [facility] [employer] AND HOME [facility] TEACHER)Only the most recent of4 resultswithin the time period is included. Pathologist Sig nature Magnesium 1.9 1.6 - 2.4 mg/dL [facility] L Specimen Plasma Performing Organization Address City/[facility] Code Phon e Number [facility] DEPARTMENT OF PATHOLOGY AND [address] [place] [address] [phone] [address] Basic metabolic panel (05/02/2020 9:08 AM [facility] C[employer] AND HOME HEALTH A[employer] TEACHER)Only the most recent of6 results within the time period is included. [facility] Sodium 138 135 - 148 mEq/L [facility] Potassium 3.6 3.5 - 5.0 mEq/L [facility] Chloride 99 98 - 112 mEq/L [facility] CO2 26 24 - 31 mEq/L [facility] Anion gap 13@ANIO 7 - 15 mEq/L [facility] BUN 17 8 - 23 mg/dL [facility] Creatinine 1.11 (H) 0.50 - 0.90 mg/dL [facility] Glucose 128 (H) 65 - 99 mg/dL [facility] Calcium 8.9 8.8 - 10.2 mg/dL [facility] Specimen Plasma Performing Organization Address [facility] Phon e Number [facility] DEPARTMENT OF PATHOLOGY AND [address] [place], [place] [phone] [address] [address] CBC hemogram (05/01/2020 5:20 AM [employer] C[employer] AND HOME HEALTH [employer]ID[employer] TEACHER) [facility] WBC 5.66 4.50 - 11.00 k/uL [facility] RBC 4.04 (L) 4.20 - 5.50 m/uL [facility] HGB 10.1 (L) 12.0 - 16.0 g/dL [facility] HCT 35.5 (L) 37.0 - 47.0 % [facility] MCV 87.9 82.0 - 100.0 fL [facility] MCH 25.0 (L) 27.0 - 34.0 pg [facility] MCHC 28.5 (L) 31.0 - 37.0 g/dL [facility] RDW - SD 55.4 (H) 37.0 - 55.0 fL [facility] MPV 10.1 8.8 - 13.2 fL [facility] Platelet count 190 150 - 400 k/uL [facility] Nucleated RBC 0.00 /100 WBC [facility] Specimen Plasma Performing Organization Address [facility] Phon e Number [facility] DEPARTMENT OF PATHOLOGY AND [address] [address] Thyroid stimulating hormone (05/01/2020 4:00 AM HOME CARE AND HOME HEALTH AIDES TEACHER) Pathologist Sig nature TSH 3.83 0.27 - 4.20 uIU/mL [facility] ITAL Specimen Plasma Performing Organization Address [facility] Phon e Number [facility] DEPARTMENT OF PATHOLOGY AND [address] [place], [place] [phone] Hepatic function panel (05/01/2020 4:00 AM HOME CARE AND HOME HEALTH AIDES TEACHER) Albumin 2.8 (L) 3.5 - 5.0 [facility] g/dL [facility] Total bilirubin 0.5 0.0 - 1.2 [facility] mg/dL [facility] Bilirubin direct <0.2 0.0 - 0.3 [facility] mg/dL [facility] Alkaline phosphatase 72 35 - 104 U/L [facility] Protein 6.3 6.3 - 8.3 [facility] Comment: g/dL HOSPITAL - 4.6-7.0 g/dL 1 week 4.4-7.6 g/dL 7 months-1year 5.1-7.3 g/dL 1-2 years 5.6-7.5 g/dL >3 years 6.0-8.0 g/dL 18-150 6.3-8.3 g/dL ALT 70 (H) 5 - 50 U/L [facility] AST 59 (H) 10 - 35 U/L [facility] Specimen Plasma Performing Organization Address [facility] Phon e Number [facility] DEPARTMENT OF PATHOLOGY AND [address] [place], [place] [phone] Us duplex venous upper extremity (04/30/2020 5:36 PM HOME CARE AND HOME HEALTH AIDES TEACHER) Specimen Narrative Performed At [facility] V[facility] U ltrasound Laboratory Upper Extr emity Venous Report [address] [place] [address] Pat.Name: MARJAN FLEMING Marta.ID: [id number] St.Date: 04/30/2020 Refer.MD: ELISEO ARCE MD Exam Time: 5:04:00 PM Study Type:U E Venous Age: 10 1955,65Y Sex: FEMALE Sonogrphr: Dwayne Macias, RVS, RCS Pat. Stat.:Inpati ent Room: [facility] WT20 2020 Tape Vol: EDGAR, CPT - 4: 44948 Echo Jerica nt ID:[id number] Order ID: [id number] Reason for Study:Arm swelling or pain, D VT suspected. History of hiatal hernia, esophageal stricture, HIV , HTN, COPD, paroxysmal Afib, ROHAN. Procedures: Colorflow, Grayscale/2D, Pul sed wave Doppler Race: C SUMMARY: DUPLEX SCAN OBSERVATIONS Right Left IJ Normal Normal Subclavian Normal Normal Axillary Normal Normal Brachial Normal Normal Basilic Obstructed Normal Cephalic Small Small RIGHT: The basilic vein is non perlita sible with echogenic material filling the lumen; color flow and Dopple r signals are absent. The remaining visualized veins are patent. LEFT: There is normal compressibil ity and no evidence of echogenic material noted within the lumen of the v isualized veins. Color flow and Doppler signals are normal. Limited visualization of the veins in the distal upper arm due to dressing and bandage. PRELIMINARY FINDINGS 1. Total superficial vein thrombosis of the right basilic vein. 2. No evidence of deep vein thrombosis o f the visualized veins. *Preliminary result reported to ASHLEY Santos @ 8883 on 04/30/20. PHYSICIAN INTERPRETATION Venous examination of the both upper ext remities and neck demonstrated no evidence of deep venous thrombosis. Total superficial vein thrombosis of th e right basilic vein. FINDINGS: Signed 04/30/2020 10:57 PM Francis Cabral MD, RPVI Procedure Note Interface, Radiology Results In - 2019 10:58 PM HOME CARE AND HOME HEALTH AIDES TEACHER Vascular Ultrasound Laboratory Upper Extremity Veno us Report [address] [facility], [place] [address] , [place] [address] Pat.Name: MARJAN FLEMING D: [id number] .Date: 04/30/2020 Refer .MD: ELISEO ARCE MD Exam Time: 5:04:00 PM Study Type:UE Venous Age: 10 1955,65Y Sex: FEMALE Sonogrphr: IBIS Espinosa, SANKET Pat. Stat.:Inpatient Room: [place] [address] 2020 Tape Vol: JM, CPT - 4: 07272 Echo Event ID:[id number] Order ID: [id number] Reason for Study:Arm swelling or pain, D VT suspected. History of hiatal hernia, esophageal stricture, HIV , HTN, COPD, paroxysmal Afib, ROHAN. Procedures: Colorflow, Grayscale/2D, Pul sed wave Doppler Race: C SUMMARY: DUPLEX SCAN OBSERVATIONS Right Left IJ Normal Normal Subclavian Normal Normal Axillary Normal Normal Brachial Normal Normal Basilic Obstructed Normal Cephalic Small Small RIGHT: The basilic vein is non compress ible with echogenic material filling the lumen; color flow and Dopple r signals are absent. The remaining visualized veins are patent. LEFT: There is normal compressibilit y and no evidence of echogenic material noted within the lumen of the v isualized veins. Color flow and Doppler signals are normal. Limited visualization of the veins in the distal upper arm due to dressing and bandage. PRELIMINARY FINDINGS 1. Total superficial vein thrombosis of the right basilic vein. 2. No evidence of deep vein thrombosis o f the visualized veins. *Preliminary result reported to ASHLEY Santos @ 1131 on 04/30/20. PHYSICIAN INTERPRETATION Venous examination of the both upper ext remities and neck demonstrated no evidence of deep venous thrombosis. Total superficial vein thrombosis of th e right basilic vein. FINDINGS: Signed 04/30/2020 10:57 PM Francis Cabral MD, RPVI Performing Organization Address [facility] Phon e Number [facility] [address] [place] [address] XR Chest 2 Vw (04/30/2020 4:18 PM HOME CARE AND HOME HEALTH AIDES TEACHER) Specimen Narrative Performed At EXAMINATION: XR CHEST 2 VW [facility] CLINICAL HISTORY: amio gtt COMPARISON: None. FINDINGS: Two views of the chest demonstrate mild cardiomegaly. Pulmonary vasculature is within normal limits. No consolidation or pleural effusion is seen. There is no evidence of pneumothorax. Low lung volume is noted. Bilateral shoulders arthroplasty changes are noted. IMPRESSION: No radiographic evidence of acute cardiopulmonary proc ess or active disease of the chest. [id number] Procedure Note Interface, Radiology Results Incoming - 04/30/2020 4:24 PM HOME CARE AND HOME HEALTH AIDES TEACHER EXAMINATION: XR CHEST 2 VW CLINICAL HISTORY: amio gtt COMPARISON: None. FINDINGS: Two views of the chest demonstrate mild cardiomegaly. Pulmonary vasculature is within normal limits. No consolidation or pleural effusion is seen. There is no evidence of pneumothorax. Low lung volume is noted. Bilateral shoulders arthroplasty changes are noted. IMPRESSION: No radiographic evidence of acute cardio pulmonary process or active disease of the chest. [id number] Performing Organization Address [facility] Phon e Number [facility] [address] [place] [address] Midline Unsuccessful Attempt (04/30/2020 11:14 AM HOME CARE AND HOME HEALTH AIDES TEACHER) Narrative Performed At Nicole Dailey RN 04/30/2020 11 :25 AM Midline Unsuccessful Attempt Date/Time: 04/30/2020 11:14 AM Performed by: Nicole Dailey RN Authorized by: Eliseo Arce MD Consent: Consent obtained: Verbal Consent given by: Patient Risks discussed: arterial puncture, i ncorrect placement, bleeding, infection, superficial thrombus, deep ve in thrombus and nerve damage Alternatives discussed: Alternative treatment Dalton protocol: Procedure explained and questions ans wered to patient or proxy's satisfaction: yes Relevant documents present and verifi ed: yes Test results available and properly l abeled: yes Imaging studies available: yes Required blood products, implants, de vices, and special equipment available: yes Site/side marked: yes Immediately prior to procedure, a wilmer raya out was called: yes Patient identity confirmed: Verbally with patient , arm band, provided demographic data and hospital-assigned i dentification number Pre-procedure details: Hand hygiene: Hand hygiene performed prior to insertion Sterile barrier technique: All elemen ts of maximal sterile technique followed Skin preparation: 2% chlorhexidine Skin preparation agent: Skin preparation agent comp letely dried prior to procedure Anesthesia (see MAR for exact dosages): Anesthesia method: Local infiltrati on Local anesthetic: Lidocaine 1% w/o epi Route of administration: Subcutaneo us Unsuccessful Attempt(s): Successful PICC Placement: Yes Location(s) Attempted: Right brachi al Number of attempts: 3 Problems or Complications: Unable to dilator. Procedure details: Landmarks identified: yes Ultrasound guidance: yes Blood Loss Amount: Less than 20 mL Post-procedure details: Number of PICC kits used during proce dure: 1 Comments: Assessed Right arm first, Right basilic is non-com pressible, switched to left arm, Left basilic vein splits, and very smal l cephalic vein. I tried twice to access brachial vein but patient felt a sharp pain so I asked RN Shea to access the vein, she w as able to access the brachial vein without pain but dilator is unable to advance com pletely . Procedure aborted and ASHLEY Valdivia able to place a PIV g.20 in lo wer arm . XR Abdomen 1 Vw Portable (04/30/2020 9:45 AM HOME CARE AND HOME HEALTH AIDES TEACHER) Specimen Narrative Performed At EXAMINATION: XR ABDOMEN 1 VW PORTABLE [facility] CLINICAL HISTORY: Abdominal pain pos t op COMPARISON: No prior IMPRESSION: 1.Residual barium within the colon throughout. No smal l bowel obstruction noted. [facility]-[id number] Procedure Note Hm Interface, Radiology Results Incoming - 04/30/2020 10:23 AM HOME CARE AND HOME HEALTH AIDES TEACHER EXAMINATION: XR ABDOMEN 1 VW PORTABLE CLINICAL HISTORY: Abdominal pain post op COMPARISON: No prior IMPRESSION: 1.Residual barium within the colon throu ghout. No small bowel obstruction noted. [facility]-[id number] Performing Organization Address City/State/ZIP Code Phon e Number [facility] [address] [place] [address] ECG 12 lead (04/30/2020 9:06 AM HOME CARE AND HOME HEALTH AIDES TEACHER)Only the most recent of2 resultswithin the time period is included. Pathologist Sig nature Ventricular rate 135 [facility] Atrial rate 159 [facility] QRSD interval 82 [facility] QT interval 344 [facility] QTC interval 516 [facility] QRS axis 1 -6 [facility] T wave axis 167 [facility] EKG impression Atrial fibrillation with rap id ventricular response-Voltage criteria for left ventricular hypertrophy-ST & T wave abnormality, consider lateral ischemia-Abnormal ECG-In automated comparison with ECG [facility] MUSE of 26-APR-2020 20:24,-Vent. rate has increased BY 5 0 BPM-ST now depressed in Late ral leads-Nonspecific T wave abnormality now evident in Inferior leads-Inverted T waves have replaced nonspecific T wave abnormality in Lateral leads- Specimen Narrative Performed At This result has an attachment that is no t available. Performing Organization Address City/State/ZIP Code Phon e Number [facility] MUSE [address] [place] [address] Airway (04/28/2020 2:57 PM HOME CARE AND HOME HEALTH AIDES TEACHER) Narrative Performed At Carlee Malloy MD 04/28/2020 2 :59 PM Airway Performed by: Carlee Malloy MD Authorized by: Carlee Malloy MD Location: OR Urgency: Elective Difficult Airway: No Anesthesiologist: Carlee Malloy MD Resident/COIL MAKER/AA: Allan Morocho DO Performed by: resident/COIL MAKER/AA Preoxygenated with 100% O2: Yes C-spine Precautions Maintained Throughou t: Yes Mask Ventilation: Easy mask Final Airway Type: Endotracheal airway Final Endotracheal Airway: ETT Cuffed: Yes Technique Used: Direct laryngoscopy Devices/Methods Used in Placement: Int ubating stylet Insertion Site: Oral Blade Type: Michelet Laryngoscope Blade/Videolaryngoscope Kaiser de Size: 3 ETT Size (mm): 7.0 Placement Verified by: CO2 detection Laryngoscopic view: Grade I - full vie w of glottis Rapid Sequence Induction (RSI): No Modified RSI: No Number of Attempts at Approach: 1 POC glucose (04/28/2020 9:01 AM HOME CARE AND HOME HEALTH AIDES TEACHER)Only the most recent of5 resultswithin the time period is included. Pathologist Sig nature POC glucose 117 (H) 65 - 99 mg/dL [facility] Comment: HOSPITAL Instrument Processing Tech Name: Zenon Clemente Device ID: [id number] Chartable: [facility] Notified RN Specimen Blood Performing Organization Address City/[facility]/ZIP Code Phon e Number [facility] DEPARTMENT OF PATHOLOGY AND [address] [place] [phone] Surgical pathology request (04/28/2020 8:27 AM HOME CARE AND HOME HEALTH AIDES TEACHER) Pathologist [place] [facility] DEPARTMENT OF PATHOLOGY AND GENOMIC MEDICINE Surgical pathology See link below [facility] DEPARTMENT OF report for PDF Lab PATHOLOGY AND Report GENOMIC MEDICINE Result status This is Final [facility] DEPARTMENT OF Report for PATHOLOGY AND [id number] GENOMIC MEDICINE Specimen Performing Organization Address City/[facility] Phon e Number [facility] DEPARTMENT OF PATHOLOGY AND [address] [place] [address] Partial thromboplastin time, activated (04/28/2020 2:11 AM HOME CARE AND HOME HEALTH AIDES TEACHER) Pathologist Dafne PTT 28.3 23.0 - 36.0 [facility] Comment: [facility] PTT therapeutic range for unfractionated heparin is 61.0-112.0 seconds which corresponds to Anti-Xa 0.3-0.7 U/ml. Specimen Blood Performing Organization Address City/[facility] Phon e Number [facility] DEPARTMENT OF PATHOLOGY AND [address] [place] [id number] Prothrombin time with INR (04/28/2020 2:11 AM HOME CARE AND HOME HEALTH AIDES TEACHER) Pathologist [place]afne Prothrombin time 13.6 11.5 - 14.5 [facility] INR 1.0 [facility] Comment: [facility] The International Normalized Ratio (INR) is a [facility] HOSPITAL monitoring tool for patients who are stable on oral anticoagulant therapy. An INR of 2.0-3.0 is suggested for deep vein thrombosis/pulmonary embolism. Specimen Blood Performing Organization Address City/[facility] Phon e Number [facility] DEPARTMENT OF PATHOLOGY AND [address] [place], [place] [address] [address] [address] Type and screen (04/28/2020 2:11 AM HOME CARE AND HOME HEALTH AIDES TEACHER) Pathologist Sig nature ABO grouping A [facility] Rh type POS [facility] Antibody screen (gel) NEG [facility] Specimen Plasma Performing Organization Address [facility] Phon e Number [facility] DEPARTMENT OF PATHOLOGY AND [address] [place] [address] 0 [place] [address] Phosphorus level (04/28/2020 2:11 AM HOME CARE AND HOME HEALTH AIDES TEACHER)Only the most recent of3 resultswithin the time period is included. Pathologist Sig [facility] Phosphorus 3.2 2.4 - 4.5 mg/dL [facility] L Specimen Plasma Performing Organization Address [facility] Phon e Number [facility] DEPARTMENT OF PATHOLOGY AND [address] [place] [address] 0 [place] [address] Transthoracic Echocardiogram Complete, (w Contrast, Strain and 3D if needed) (04/27/2020 3:00 PM HOME CARE AND HOME HEALTH AIDES TEACHER) Specimen Narrative Performed At [facility] Echo cardiography Report [address] [place] [address] Pat.Name: MARJAN FLEMING Pat.ID: [id number] .Date: 04/27/2020 Refer.MD: ELISEO ARCE MD Exam Time: 2:21:00 PM Study Type:R outine Echo Height: 64in Weight: 213lb BSA: 2.01 m2 Ag e: 1955,65Y Sex: FEMALE BP: 128/89 HR: 102 bpm Sonogrp hr: SANKET Perkins Pat. Stat.:Inpatient Room: [facility] Study Status:Final Echo Event ID:[id number] Order ID: [id number] Reason for Study:Atrial Fibrillation History / Clinical:Hypertension Procedures: 2D Echo, Colorflow Doppler, Portable Race: C SUMMARY: LV EF is normal. Estimated EF is 65-69% RV systolic function is normal. LA volume is severely enlarged. FINDINGS: LV: LV size is normal. LV EF is normal. Overall wall motion is normal. Estimated EF is 6 5-69% RV: RV size is normal. RV systo lic function is normal. LA: LA volume is severely enlar ged. RA: RA size is normal. AO: Aortic root diameter is nor mal. LIZET: No pericardial effusion and anterior fat pad is present. AV: No structural AV abnormalit ies noted. MV: No structural MV abnormalit ies noted. PV: No structural PV abnormalit ies noted. A trace of pulmonic regurgitation. TV: No structural TV abnormalit ies noted. A trace of tricuspid regurgitation Saha: Unable to assess diastolic f unction due to A. fib. Other: Insufficient TR jet to estim ate PA systolic pressure. MEASUREMENTS: 2D Parasternal Long [place] Ao An 2.2 cm LVPWd 1 cm Ao Rtd 3.5 cm Index 1.7 cm/m2 LA Ds 4.6 cm IVSd 1 cm RWT 0.43 LVIDd 4.8 cm Index 2.4 cm/m2 LV Mass 172 g (87-12 9) LVIDs 3.2 cm LVM In dex 86 g/m LV%fs 33 % LVOT 2 cm LA Sng Plane LA Area 30 cm (8.8-23.4) LA Vol 114 ml Index 57 ml/m2 LA LngAx 6.3 cm Ascending Aorta Asc Dim 3.8 cm LVOT LVOT Area 3.1 cm DOPPLER LVOT Stroke Vol & Cardiac Out LVOT TVI 22 cm HR 91 bpm LVOT LVOT SV 68 ml LVOT CO 6.2 l/min SVi 34 ml/m LVOT C I 3.1 l/m/m Signed 04/27/2020 06:20 PM Sandra Martin MD Procedure Note Interface, Radiology Results In - 2019 6:21 PM [facility] Echocardiography Report [id number] [address] Pat.Name: MARJAN FLEMING.I D: [id number] St.Date: 04/27/2020 Refer .MD: ELISEO ARCE MD Exam Time: 2:21:00 PM Study Type:Routine Echo Height: 64in Weigh t: 213lb BSA: 2.01 m2 Age: 9 1955,65Y Sex: FEMALE BP: 128/89 HR: 102 bpm Sonog rphr: SANKET Perkins Pat. Stat.:Inpatient Room: [facility] Study Status:Final Echo Event ID:[id number] Order ID: [id number] Reason for Study:Atrial Fibrillation History / Clinical:Hypertension Procedures: 2D Echo, Colorflow Doppler, Portable Race: C SUMMARY: LV EF is normal. Estimated EF is 65-69% RV systolic function is normal. LA volume is severely enlarged. FINDINGS: LV: LV size is normal. LV EF is no rmal. Overall wall motion is normal. Estimated EF is 65-69% RV: RV size is normal. RV systolic function is normal. LA: LA volume is severely enlarged . RA: RA size is normal. AO: Aortic root diameter is normal . LIZET: No pericardial effusion and an terior fat pad is present. AV: No structural AV abnormalities noted. MV: No structural MV abnormalities noted. PV: No structural PV abnormalities noted. A trace of pulmonic regurgitation. TV: No structural TV abnormalities noted. A trace of tricuspid regurgitation Saha: Unable to assess diastolic fun ction due to A. fib. Other: Insufficient TR jet to estimat e PA systolic pressure. MEASUREMENTS: 2D Parasternal [place] Ao An 2.2 cm LVPW d 1 cm Ao Rtd 3.5 cm Inde x 1.7 cm/m2 LA Ds 4.6 cm IVSd 1 cm RWT 0.43 LVIDd 4.8 cm Inde x 2.4 cm/m2 LV Mass 172 g (87-129) LVIDs 3.2 cm LVM Index 86 g/m LV%fs 33 % LVOT 2 cm LA Sng Plane LA Area 30 cm (8.8-23.4) L A Vol 114 ml Index 57 ml/m2 LA LngAx 6.3 cm Ascending Aorta Asc Dim 3.8 cm LVOT LVOT Area 3.1 cm DOPPLER LVOT Stroke Vol & Cardiac Out LVOT TVI 22 cm HR 91 bpm LVOT LVOT SV 68 ml LVOT CO 6.2 l/min SVi 34 ml/m LVO T CI 3.1 l/m/m Signed 04/27/2020 06:20 PM Sandra Martin MD Performing Organization Address [facility] Phon e Number [facility] [address] [place] [address] COVID-19 qualitative PCR (04/26/2020 3:44 PM HOME CARE AND HOME HEALTH AIDES TEACHER) Interpretation Negative results do not prec lude 2019-nCoV infection and should not be used as the sole basis for treatment or other patient management decisions. Negative results must be combined with clinical observations, patient history, and epidemiological BERG[facility] information. [facility] COVID-19 qualitative Not-Detected Not-Detecte [facility] PCR result d [facility] COVID-19 qualitative See link below for [facility] PCR PDF Lab [facility] ReportComment: Case HOSPITAL Number: [id number] Specimen Nasal swab Performing Organization Address [facility] Phon e Number [facility] DEPARTMENT OF PATHOLOGY AND [address] [place] [phone] GENOMIC MEDICINE [id number] [place] [address] Miscellaneous referral test (04/26/2020 3:05 AM HOME CARE AND HOME HEALTH AIDES TEACHER) Mis test name HIV-1 RNA QUAL PCR SHOWN ABOVE [facility] test result see note SHOWN ABOVE Comment: Human Immunodeficiency Virus 1 (HIV-1) by Qualitative Clothing Pattern Preparer-Mediated Amplification (TMA) [facility] test code [id number] HIV-1 by Qualitative TMA See Note SOURCE/SPECIMEN PLASMA HIV-1 RNA, QUALITATIVE TMA HIV-1 RNA, QL TMA TNP Test Not Performed. Initial testing necessitated a rep eat, but there was insufficient sample to perform repeat. SAMPLE LEFT FOR REPEAT IS 50 uL. NEED 1000 uL TO RUN R EPEAT. This test was performed using the APTIMA(R) HIV-RNA Qu alitative Assay (Gen-Probe). ===== Test performed by: [facility] [address] [place] [id number] Specimen Narrative Performed At HIVQL - HIV-1 RNA, Qualitative TMA (GLORY EN) [facility] DEPARTMENT OF PATHOLOGY AND GENOMIC [facility] Test Code: [id number] MEDICINE Source: plasma Performing Organization Address City/[facility] Phon e Number [facility] DEPARTMENT OF PATHOLOGY AND [address] [place] [phone] GENOMIC MEDICINE SHOWN ABOVE CD 4 subset (04/26/2020 3:05 AM HOME CARE AND HOME HEALTH AIDES TEACHER) CD4% 47 37 - 57 % [facility] CD4 absolute count 426 (L) 488 - 1,340 ul [facility] CD4 subset See link below [facility] PDF Lab [facility] ReportComment: Specimen Blood Performing Organization Address City/[facility] Phon e Number [facility] DEPARTMENT OF PATHOLOGY AND [address] [place] [phone] GENOMIC MEDICINE [address] [address] [facility] Potassium level (04/25/2020 9:04 PM HOME CARE AND HOME HEALTH AIDES TEACHER) Pathologist Sig nature Potassium 3.3 (L) 3.5 - 5.0 mEq/L [facility] L Specimen Plasma Performing Organization Address City/[facility]/ZIP Code Phon e Number [facility] DEPARTMENT OF PATHOLOGY AND [address] [place], [place] [address] GENOMIC MEDICINE [facility] [address] [place] [address] [place] Esophagram Double Contrast (04/25/2020 11:31 AM HOME CARE AND HOME HEALTH AIDES TEACHER) Specimen Narrative Performed At EXAMINATION: [place] ESOPHAGRAM DOUBLE CONT RAST HM [facility] CLINICAL HISTORY: R13.10 Dysphagia unspecified, K4 4.9 Diaphragmatic hernia without obstruction or gangrene, Dysphagia un explained, dysphagia hiatal hernia COMPARISON: Limited comparison with est CT from April 21, 2020 TECHNIQUE: Esophagram was performed with effervescen t granules and barium. FLUOROSCOPIC TIME: 1.5 minutes. NUMBER OF IMAGES: 9 fluoroscopic images. IMPRESSION: No strictures. Normal esophageal mucosa. Nonspecific esophageal dysmotility, with mildly delaye d esophageal emptying and scattered nonpropulsive ter tiary contraction waves. There is a moderately sized type III hiatal hernia. Th ere was mild spontaneous gastroesophageal reflux. [id number] Procedure Note Interface, Radiology Results Incoming - 04/25/2020 12:10 PM HOME CARE AND HOME HEALTH AIDES TEACHER EXAMINATION: [place] ESOPHAGRAM DOUBLE CONTRAST CLINICAL HISTORY: R13.10 Dysphagia uns pecified, K44.9 Diaphragmatic hernia without obstruction or gangrene, Dysphagia unexplained, dysphagia hiatal hernia COMPARISON: Limited comparison with [facility] st CT from April 21, 2020 TECHNIQUE: Esophagram was performed wit h effervescent granules and barium. FLUOROSCOPIC TIME: 1.5 minutes. NUMBER OF IMAGES: 9 fluoroscopic images. IMPRESSION: No strictures. Normal esophageal mucosa. Nonspecific esophageal dysmotility, with mildly delayed esophageal emptying and scattered nonpropulsive tertiary contraction waves. There is a moderately sized type III hia jose hernia. There was mild spontaneous gastroesophageal reflux. [id number] Performing Organization Address City/[facility]/ZIP Code Phon e Number [facility] [address] [place] [address] CT Chest Wo Contrast Abdomen Wo Contrast Pelvis Wo Contrast (04/21/2020 8:15 AM HOME CARE AND HOME HEALTH AIDES TEACHER) Specimen Narrative Performed At EXAMINATION: CT CHEST WO CONTRAST ABDOMEN WO CONTRAS T PELVIS WO [facility] CONTRAST CLINICAL HISTORY: abd pain hiatal COMPARISON: None. TECHNIQUE: CT of the chest, abdomen and pelvis wit hout intravenous contrast. Sagittal and coronal computerized reformatte d images were also obtained. Absence of intravenous contrast decreases se nsitivity for detection of focal lesions and vascular pathology. CT imaging was performed with iterative rec onstruction techniques and/or automated exposure con trol to reduce radiation dose. FINDINGS: CHEST: LUNGS AND AIRWAYS: Dependent atelectasis. Additional m ore nodular consolidations in the posterior right lower lobe (e.g. 8 mm posterior nodule series 302, image 43, and 6 mm medial nodule im age 57). Left upper lobe 2 mm nodule is too small to r equire follow-up (series 302, image 35). PLEURA: No pleural effusion or pneumotho rax. CARDIOVASCULAR: The ascending aorta is mildly dilated, measuring 4.1 cm. Main pulmonary artery is severely dilated, measuring 4 .1 cm. Moderate coronary artery calcifications. MEDIASTINUM AND LYMPH NODES: No mediasti nal or hilar adenopathy. ABDOMEN AND PELVIS: HEPATOBILIARY: No focal hepatic lesions. No biliary ductal dilation. Status post cholecystectomy. SPLEEN: No splenomegaly. PANCREAS: No focal masses or ductal di lation. Punctate calcification. ADRENALS: No adrenal nodules. KIDNEYS: Few bilateral renal cysts, largest on the l eft measuring up to 4.2 cm. Punctate nonobstructing right calyceal ston e. Right hilar vascular calcifications. No hydronephros is or solid masses. GI TRACT: Moderate type III hiatal hernia. No bowel distention or wall thickening. The appendix is not definitively visualize d, but there are no secondary signs of right lower quadra nt inflammation. PERITONEUM/RETROPERITONEUM: No free ai r or fluid. No lymphadenopathy. VASCULATURE: Aortic atherosclerosis. There is ectasia of the infrarenal abdominal aorta measuring up to 2.3 cm. PELVIC ORGANS/BLADDER: Unremarkable. BONES AND SOFT TISSUES: Degenerative changes through out the spine. Bilateral total shoulder arthroplasties. IMPRESSION: 1.Moderate type III hiatal hernia. 2.Groundglass and nodularity in the dependent lungs is largely due to hypoventilatory changes, although there could be a sma ll component of superimposed aspiration. Given the nodularity involvin g some of the changes, recommend follow-up chest CT in 6 months. 3.Main pulmonary artery is dilated up to 4.1 cm, which can be seen in but is not specific for pulmonary hypertension. Ascend ing aorta is dilated up to 4.1 cm, and there is mild ectasia of the infrarenal abdominal aorta. 4.Additional chronic and incidental find ings as detailed above. [facility]-[id number] Dictated and approved by sr vice president/fellow: Werner Valenzuela M.D. I, Medhat Flowers Jr., M.D., personally reviewed the cindi ges and resident's/fellow's findings and agree with the final report. 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 TECHNIQUE: CT of the chest, abdomen and pelvis without intravenous contrast. Sagittal and coronal computerized reformatted images were also obtained. Absence of intravenous contrast decreases sensitivity for detection of focal lesions and vascular pathology. CT imaging was performed with iterative reconstruction techniques and/or automated exposure control to reduce radiation dose. FINDINGS: CHEST: LUNGS AND AIRWAYS: Dependent atelectasis . Additional more nodular consolidations in the posterior right lower lobe (e.g. 8 mm posterior nodule series 302, image 43, and 6 mm medial nodule image 56). Left upper lobe 2 mm nodule is too small to require follow-up (series 302, image 35). PLEURA: No pleural effusion or pneumotho rax. CARDIOVASCULAR: The ascending aorta is m ildly dilated, measuring 4.1 cm. Main pulmonary artery is severely dilated, measuring 4.1 cm. Moderate coronary artery calcifications. MEDIASTINUM AND LYMPH NODES: No mediasti nal or hilar adenopathy. ABDOMEN AND PELVIS: HEPATOBILIARY: No focal hepatic lesions . No biliary ductal dilation. Status post cholecystectomy. SPLEEN: No splenomegaly. PANCREAS: No focal masses or ductal dil ation. Punctate calcification. ADRENALS: No adrenal nodules. KIDNEYS: Few bilateral renal cysts, lar gest on the left measuring up to 4.2 cm. Punctate nonobstructing right calyceal stone. Right hilar vascular calcifications. No hydronephrosis or solid masses. GI TRACT: Moderate type III hiatal teresa ia. No bowel distention or wall thickening. The appendix is not definitively visualized, but there are no secondary signs of right lower quadrant inflammation. PERITONEUM/RETROPERITONEUM: No free air or fluid. No lymphadenopathy. VASCULATURE: Aortic atherosclerosis. The re is ectasia of the infrarenal abdominal aorta measuring up to 2.3 cm. PELVIC ORGANS/BLADDER: Unremarkable. BONES AND SOFT TISSUES: Degenerative ch anges throughout the spine. Bilateral total shoulder arthroplasties. IMPRESSION: 1.Moderate type III hiatal hernia. 2.Groundglass and nodularity in the depe ndent lungs is largely due to hypoventilatory changes, although there could be a small component of superimposed aspiration. Given the nodularity involving some of the changes, recommend follow-up chest CT in 6 months. 3.Main pulmonary artery is dilated up to 4.1 cm, which can be seen in but is not specific for pulmonary hypertension. Ascending aorta is dilated up to 4.1 cm, and there is mild ectasia of the infrarenal abdominal aorta. 4.Additional chronic and incidental find ings as detailed above. [facility]-[id number] Dictated and approved by radiology resid ent/fellow: Jenna Valenzuela M.D. I, Medhat Flowers Jr., M.D., personally re viewed the images and resident's/fellow's findings and agree with the final report. 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 TEACHER) Pathologist Sig nature Lactic acid 1.2 0.5 - 2.2 mmol/L [facility] Specimen Plasma Performing Organization Address City/[facility]/ZIP Code Phon e Number [facility] DEPARTMENT OF PATHOLOGY AND [address] [place] [address] [phone] [address] Lipase level (04/21/2020 7:22 AM HOME CARE AND HOME HEALTH AIDES TEACHER) Pathologist Sig nature Lipase 22 13 - 60 U/L [facility] Specimen Plasma Performing Organization Address City/[facility]/ZIP Code Phon e Number [facility] DEPARTMENT OF PATHOLOGY AND [address] [place] [address] [phone] [address] Comprehensive metabolic panel (04/21/2020 7:22 AM HOME CARE AND HOME HEALTH AIDES TEACHER) Sodium 143 135 - 148 [facility] mEq/L [facility] Potassium 3.8 3.5 - 5.0 [facility] mEq/L [facility] Chloride 107 98 - 112 [facility] mEq/L [facility] CO2 26 24 - 31 mEq/L [facility] Anion gap 10@ANIO 7 - 15 mEq/L [facility] BUN 18 8 - 23 mg/dL [facility] Creatinine 1.09 (H) 0.50 - 0.90 [facility] mg/dL [facility]OS[facility]ITAL Glucose 126 (H) 65 - 99 mg/dL [facility] Calcium 9.0 8.8 - 10.2 [facility] mg/dL [facility] Protein 6.7 6.3 - 8.3 [facility] Comment: g/dL [facility] [place] 4.6-7.0 g/dL 1 week 4.4-7.6 g/dL 7 months-1year 5.1-7.3 g/dL 1-2 years 5.6-7.5 g/dL >3 years 6.0-8.0 g/dL 18-150 6.3-8.3 g/dL Albumin 2.9 (L) 3.5 - 5.0 [facility] g/dL [facility] A/G ratio 0.8 0.7 - 3.8 [facility] Alkaline phosphatase 57 35 - 104 U/L [facility] AST 17 10 - 35 U/L [facility] ALT 13 5 - 50 U/L [facility] Total bilirubin 0.3 0.0 - 1.2 [facility] mg/dL [facility] Specimen Plasma Performing Organization Address City/State/ZIP Code Phon e Number [facility] DEPARTMENT OF PATHOLOGY AND [address] [place] [phone] GENOMIC MEDICINE [facility] [address] [place] [address] after 05/24/2019 Advance Directives For more information, please contact: [phone] Type Date Recorded 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
--- OUTSIDE RECORDS SUMMARY | 2020-05-24 15:16 | XMS REPORT | Continuity of Care Document ---
:1955 Author Organization [facility] t Address [address] [place] [address] Care Team Providers Name Role Phone Asked, Pcp Primary Care Physician Unavailable Provider Attending Clinician Luisana Maharaj NP Attending Clinician Yazmin JENKINS Attending Clinician Michael Pinon MD Attending Clinician Shaheed Catalan Attending Clinician Meli SANCHEZ Attending Clinician Unavailable Mario Tapia MD Attending Clinician Nahum SANCHEZ Attending Clinician Unavailable Curt Mitchell MD Attending Clinician DO SYL Attending Clinician Unavailable YAZMIN Admitting Clinician Unavailable DO SYL Admitting Clinician Unavailable Payers Payer Name Policy Type Policy Effective Date Expiration Date Sour ce Number [facility] MEDICARE(WELLMED) [id number] 2019 [place] [facility] DUAL 00:00:00 [place]astaf[place] [id number]/2019-PresentHMO [facility] MEDICAIDUNITEDHC [id number] 2019 [place] COMM STAR+ 00:00:00 Rastafari [id number] 2019- PresentHMO Problems Condition Condition Condition Status Onset Resolution Last Treating Co mments Source Name Details Category Date Date Treatment Clinician Date Food Food Disease Active 2019-05 [place] intoleranc intoleranc 2-04 Me thodi e in adult e in adult 00:00: st 00 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 Unstable Unstable Disease Active [facility] on reverse reverse 08-20 Methodi 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:00: 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 Allergies, Adverse Reactions, Alerts Allergy Allergy Status Severity Reaction(s) Onset Inactive Treating Comm ents Source Name Type Date Date Clinician Sulfamet Propensi Active Other (See 2019-05 Stomach [place] hoxazole ty to Comments) 204 pain Metho di -Trimeth adverse 00:00: st oprim reaction 00 s to drug Butorpha Propensi Active Hallucinatio 2019-05 [place] nol ty to ns 2-04 Methodi adverse 00:00: st reaction 00 s to drug Metoclop Propensi Active Andreato n ramide ty to 504 Methodi Hcl adverse 00:00: st reaction 00 s to drug Family History Family Member Diagnosis Comments Start Date Stop Date Source Natural father Hypertension Meza Rastafari Natural father Kidney disease Andreato n Rastafari Social History Social Habit Start Date Stop Date Quantity Comments Source History of tobacco Current smoker Juan Luis parker Rastafari use Sex Assigned At [facility] ethodist Exposure to Not sure [place] Metho dist SARS-CoV-2 (event) Cigarettes smoked 2020-04-30 2020-04-30 Derrick Eganist current (pack per 00:00:00 00:00:00 day) - Reported Tobacco use and 2020-04-30 2020-04-[address] [facility] ethodist exposure 00:00:00 00:00:00 Alcohol intake 2020-04-30 2020-04-30 Current drinker Porsha on Rastafari 00:00:00 00:00:00 of alcohol (finding) Alcohol Comment 2016-09-23 2016-09-[address] [facility] ethodist 00:00:00 00:00:00 Smoking Status Start Date Stop Date Source Former smoker 2020-04-30 00:00:00 2020-04-30 00:00:00 Derrick Jean Medications Ordered Filled Start Stop Current Ordering Indication Dosage Frequency Signature Comments Components Source Medication Medication Date Date Medication? Clinician (SIG) Name Name lisinopril 2019-05 Yes 40mg Q.5D Take 40 mg [place] (PRINIVIL,Z 2-12 by mouth 2 Me thodi ESTRIL) 40 13:39: (two) st mg tablet 23 times a day. metoprolol 2019-05 Yes 100mg Q.5D Take 100 [place] tartrate 2-12 mg by Methodi (LOPRESSOR) 13:39: mouth 2 st 100 mg 23 (two) tablet times a day. amLODIPine 2019-05 Yes 10mg QD Take 10 mg [place] (NORVASC) 2-12 by mouth Method i 10 mg 13:39: daily. st tablet 23 LORAZepam 2019-05 Yes 2mg QD Take 2 mg [place] (ATIVAN) 2 2-12 by mouth Metho di MG tablet 13:39: nightly as st 23 needed for anxiety. sertraline 2019-05 Yes 200mg QD Take 200 [place] (ZOLOFT) 2-12 mg by Methodi 100 MG 13:39: mouth st tablet 23 daily. esomeprazol 2019-05 Yes 40mg Q.5D Take 40 mg Meza e (NexIUM) 2-12 by mouth 2 Met hodi 40 MG 13:39: (two) st capsule 23 times a day. clobetasol 2019-05 Yes 1{appli Q.5D Apply 1 [place] (TEMOVATE) 2-12 cation} applicatio Methodi 0.05 % 13:39: n st ointment 23 topically 2 (two) times a day. (affected area in groin) hydrALAZINE 2019-05 Yes 50mg QD Take 50 mg Meza (APRESOLINE 2-12 by mouth Meth jason ) 50 MG 13:39: nightly. st tablet 23 busPIRone 2019-05 Yes 20mg QD Take 20 mg [place] (BUSPAR) 10 2-12 by mouth Meth jason MG tablet 13:39: every st 23 morning. busPIRone 2020- Yes 20mg QD Take 20 mg [place] (BUSPAR) 10 2-12 by mouth Meth jason MG tablet 13:39: nightly. st 23 mirtazapine 2019-05 Yes 15mg QD Take 15 mg Meza (REMERON) 2-12 by mouth Method i 15 MG 13:39: nightly as st tablet 23 needed (insomnia) . LORAZepam 2019-05 Yes 2mg QD Take 2 mg [place] (ATIVAN) 2 2-12 by mouth Metho di MG tablet 13:39: every st 23 morning. acetaminoph 2019-05 Yes 1000mg Q.5D Take 1,000 Meza en 2-12 mg by Methodi (TYLENOL) 13:39: mouth 2 st 500 MG 23 (two) tablet times a day as needed for headaches. albuterol 2019-05 Yes 1{puff} Q4H Inhale 1 [place] sulfate 90 2-12 puff every Met hodi mcg/actuati 13:39: 4 (four) st on aero 23 hours as powdr needed breath act (shortness w/sensor of breath or wheezing). budesonide- 2019-05 Yes 1{puff} QD Inhale 1 Meza formoteroL 2-12 puff every Met hodi (SYMBICORT) 13:39: morning. st 160-4.5 23 mcg/actuati on inhaler montelukast 2019-05 Yes 10mg QD Take 10 mg Meza (SINGULAIR) 12 by mouth Meth jason 10 mg 13:39: nightly. st tablet 23 amIODarone 2019-05- Yes 200mg QD Take 1 [place] (PACERONE) 07-04 tablet Method i 200 MG 00:00: 23:59 ([address] tablet 00 :00 total) by mouth daily for 30 days. pantoprazol 2019-05- Yes 40mg Q.5D Take 1 [place] e 07-04 tablet (40 Methodi (PROTONIX) 00:00: 23:59 mg total) s t 40 MG EC 00 :00 by mouth 2 tablet (two) times a day for 30 days. simethicone 2019-05- Yes 80mg Q6H Chew 1 [place] (MYLICON) 07-04 tablet (80 Met hodi 80 MG 00:00: 23:59 mg total) st chewable 00 :00 every 6 tablet (six) hours for 30 days. ipratropium 2019-05- Yes 3mL Q.25D Take 3 mL Meza -albuteroL 07-04 by Methodi (DUO-NEB) 00:00: 23:59 nebulizati s t 0.5-2.5 00 :00 on every 4 mg/3 mL (four) nebulizer hours while awake for 30 days. budesonide 2019-05- Yes Simple .5mg Q.5D Take 2 mL Meza (PULMICORT) 07-04 chronic (0.5 mg M ethodi 0.5 mg/2 mL 00:00: 23:59 bronchitis total) by st nebulizer 00 :00 (HCC) nebulizati solution on 2 (two) times a day for [address] of symbicort. apixaban 2019-05- Yes 5mg Q.5D Take 1 [place] (ELIQUIS) 5 07-04 tablet (5 Me thodi mg tablet 00:00: 23:59 mg total) st 00 :00 by mouth 2 (two) times a day for 30 days. acetaminoph 2019-05- No acute pain 1{tbl} Q6H Take 1 [place] en-codeine 07-04 tablet by Met loredo (TYLENOL 00:00: 23:[address] WITH 00 :00 every 6 CODEINE #3) (six) 300-30 mg hours as per tablet needed for moderate pain for up to 7 days .acute pain. lidocaine 2019-05- No 1{patch Q24H Place 1 [place] (LIDODERM) 07-04 } patch on Meth jason 5 % 00:00: 23:[address] 00 :00 daily for 7 days. Remove & Discard patch within 12 hours or as directed by methocarbam 2019-05- No 1000mg Q.25D Take 2 Meza oL 07-04 tablets [place] (ROBAXIN) 00:00: 23:59 (1,[address] 500 MG 00 :00 total) by tablet mouth 4 (four) times a day for 7 days. apixaban 2019-05- No 5mg Q.5D Take 1 [place] (ELIQUIS) 5 07-04 tablet (5 Me thodi mg tablet 00:00: 00:00 mg total) st 00 :00 by mouth 2 (two) times a day. ARIPiprazol 2019-05- No 5mg Take 1 [place] (ABILIFY) 07-04 tablet (5 Me thodi 5 MG tablet 00:00: 00:00 mg total) st 00 :00 by mouth once for 1 dose. naloxone 4 2019-05 Yes 1{spray 1 spray [place] mg/actuatio 2-10 } into each Met hodi n 00:00: nostril st spray,non-a 00 once as erosol needed (breathing less than 8 per minute or inability to arouse) for up to 2 doses. triamterene 2019-05- No 1{tbl} QD Take 1 [place] -hydrochlor 06-27 tablet by Me thodi othiazid 16:16: 00:[address] (MAXZIDE-25 20 :00 daily. ) 37.5-25 mg per tablet ARIPiprazol 2019-05 No 5mg Take 5 mg Meza e (ABILIFY) 06-26 by mouth. Me thodi 5 MG tablet 20:00: 00:00 st 12 :00 DESCOVY 2016-0 Yes 1{tbl} QD Take 1 [place] 200-25 mg 3-20 tablet by Metho di tablet 00:00: mouth st 00 daily. ISENTRESS 20170 Yes 400mg Q.5D Take [address] [place] 400 mg 3-18 mg by Methodi tablet 00:00: mouth 2 st 00 (two) times a day. Vital Signs Vital Name Observation Time Observation Value Comments Source Systolic blood 2020-05-03 11:32:51 139 mm[Hg] Andreato n Rastafari pressure Diastolic blood 2020-05-03 11:32:51 85 mm[Hg] Andreat on Rastafari pressure Heart rate 2020-05-03 11:32:51 102 /min Derrick Jean Body temperature 2020-05-03 11:32:51 36.11 Amina [place]ast[place] Respiratory rate 2020-05-03 11:32:51 17 /min [place] Oxygen saturation in 2020-05-03 11:32:51 93 /min Meza Rastafari Arterial blood by Pulse oximetry Body weight 2020-05-03 04:40:00 100.744 kg Derrick Jean BMI 2020-05-03 04:40:00 38.12 kg/m2 [place] Rastafari Body height 2020-04-25 11:51:00 162.6 cm Derrick Jean Procedures Procedure Date / Time Performing Clinician Source Performed [id number] 2020-05-07 00:00:00 Rochelle Engel BASIC METABOLIC PANEL 2020-05-02 09:08:00 Pau Ott HC COMPLETE BLD COUNT 2020-05-02 09:08:00 Pau Ott W/AUTO DIFF MAGNESIUM LEVEL 2020-05-02 09:08:00 Pau Ott odist ESTIMATED GFR 2020-05-02 09:08:00 Eliseo Arce CBC HEMOGRAM 2020-05-01 05:20:00 Idalmis Montilla Met jose BASIC METABOLIC PANEL 2020-05-01 04:00:00 Idalmis Montilla on Rastafari ESTIMATED GFR 2020-05-01 04:00:00 Idalmis Montilla Met jose HEPATIC FUNCTION PANEL 2020-05-01 04:00:00 Idalmis Montilla Rastafari THYROID STIMULATING 2020-05-01 04:00:00 Idalmis Montilla HORMONE US DUPLEX VENOUS UPPER 2020-04-30 17:36:00 Del Ching Jurado EXTREMITY BILATERAL XR CHEST 2 VW 2020-04-30 16:18:36 Pau Ott MIDLINE INSERTION ATTEMPT 2020-04-30 11:14:34 Nicole Dailey - UNSUCCESSFUL XR ABDOMEN 1 VW PORTABLE 2020-04-30 09:45:00 Gracie Narayan ECG 12-LEAD 2020-04-30 09:06:58 Pau Ott IA AN ELECTIVE 2020-04-28 14:57:57 Carlee Malloy Met jose ENDOTRACHEAL AIRWAY POC GLUCOSE 2020-04-28 09:01:00 Eliseo Arce SURGICAL PATHOLOGY REQUEST 2020-04-28 08:27:00 Eliseo Arce BASIC METABOLIC PANEL 2020-04-28 02:11:00 Luis Gonzalez HC COMPLETE BLD COUNT 2020-04-28 02:11:00 Luis Gonzalez W/AUTO DIFF MAGNESIUM LEVEL 2020-04-28 02:11:00 Luis Gonzalez Rastafari PHOSPHORUS LEVEL 2020-04-28 02:11:00 Luis Gonzalez on Rastafari PROTHROMBIN TIME WITH INR 2020-04-28 02:11:00 Grabiel Gonzalez PARTIAL THROMBOPLASTIN 2020-04-28 02:11:00 Luis Gonzalez Rastafari TIME (PTT) ESTIMATED GFR 2020-04-28 02:11:00 Eliseo Arce Meth odist TYPE AND SCREEN 2020-04-28 02:11:00 Eliseo Arce Meth odist POC GLUCOSE 2020-04-27 23:38:00 Eliseo Arce Meth odist POC GLUCOSE 2020-04-27 20:14:00 Eliseo Arce Meth odist TTE COMPLETE, WO CONTRAST, 2020-04-27 15:00:00 Nieves Hyde W DOPPLER (42011) POC GLUCOSE 2020-04-27 12:30:00 Eliseo Arce Meth odist BASIC METABOLIC PANEL 2020-04-27 06:34:00 Eliseo Arce Rastafari ESTIMATED GFR 2020-04-27 06:34:00 Eliseo Arce Meth odist POC GLUCOSE 2020-04-26 21:18:00 Eliseo Arce Meth odist ECG 12-LEAD 2020-04-26 20:24:31 Nieves Hyde COVID-19 QUALITATIVE PCR 2020-04-26 15:44:00 Rosa Maria Gonzalez HC COMPLETE BLD COUNT 2020-04-26 03:05:00 Luis Gonzalez W/AUTO DIFF BASIC METABOLIC PANEL 2020-04-26 03:05:00 Luis Gonzalez MAGNESIUM LEVEL 2020-04-26 03:05:00 Luis Gonzalez Rastafari PHOSPHORUS LEVEL 2020-04-26 03:05:00 Luis Gonzalez on Rastafari CD 4 SUBSET 2020-04-26 03:05:00 ChidimasEliseo monk Derrick Meth odist ESTIMATED GFR 2020-04-26 03:05:00 JeredimasEliseo mokn Meth odist MISCELLANEOUS REFERRAL 2020-04-26 03:05:00 Eliseo Arce on Rastafari TEST POTASSIUM LEVEL 2020-04-25 21:04:00 Eliseo Arce Meth odist HC COMPLETE BLD COUNT 2020-04-25 18:51:00 Luis Gonzalezist W/AUTO DIFF BASIC METABOLIC PANEL 2020-04-25 18:51:00 Luis Gonzalez MAGNESIUM LEVEL 2020-04-25 18:51:00 Luis Gonzalez n Rastafari PHOSPHORUS LEVEL 2020-04-25 18:51:00 Luis Gonzalez on Rastafari ESTIMATED GFR 2020-04-25 18:51:00 JeredimasEliseo monk Derrick Meth odist [place] ESOPHAGRAM DOUBLE 2020-04-25 11:31:[address] CHEST WO CONTRAST 2020-04-21 08:15:34 Tu, Geraldo Jean ABDOMEN WO CONTRAST PELVIS WO CONTRAST HC COMPLETE BLD COUNT 2020-04-21 07:22:00 Tu, Geraldo Jean W/AUTO DIFF COMPREHENSIVE METABOLIC 2020-04-21 07:22:00 Tu, Geraldo Jean PANEL LIPASE LEVEL 2020-04-21 07:22:00 Tu, Geraldo Jean LACTIC ACID LEVEL, SEPSIS 2020-04-21 07:22:00 Tu, Geraldo Jean - NOW AND REPEAT 2X EVERY 3 HOURS ESTIMATED GFR 2020-04-21 07:22:00 Tu, Geraldo Jean Plan of Care Planned Activity Planned Date Details Comments Source Future Scheduled 2019-12-22 INFLUENZA VACCINE Rashida n Rastafari Test 00:00:00 [code = INFLUENZA VACCINE] Future Scheduled 2006-01-22 BREAST CANCER Derrick Me thodist Test 00:00:00 SCREENING [code = BREAST CANCER SCREENING] Future Scheduled 2006-01-22 COLONOSCOPY SCREENING Juan Luis parker Rastafari Test 00:00:00 [code = COLONOSCOPY SCREENING] Future Scheduled 2006-01-22 SHINGLES VACCINES [place] Test 00:00:00 (#1) [code = SHINGLES VACCINES (#1)] Future Scheduled 1977-01-22 Screening for [place] Me thodist Test 00:00:00 malignant neoplasm of cervix (procedure) [code = 633101189] Future Scheduled 1972 COVID-19 VACCINE (#1) [place]ast[place]ari Test 00:00:00 [code = COVID-19 VACCINE (#1)] Future Scheduled 1966-01-22 DIABETES: RETINAL EYE [place]astafari Test 00:00:00 EXAM [code = DIABETES: RETINAL EYE EXAM] Future Scheduled 1966-01-22 DIABETIC FOOT EXAM [place] Rastafari Test 00:00:00 [code = DIABETIC FOOT EXAM] Encounters Start End Encounter Admission Attending Care Care Encounter Source Date/Time Date/Time Type Type Clinicians Facility Department ID 2020-04-25 2020-05-03 Inpatient [facility] [id number] [place] 00:00:00 00:00:00 RAY [address] 2020-04-25 2020-04-25 Outpatient [facility] [id number] [place] 00:00:00 00:00:00 RAY [address] 2020-04-25 2020-04-25 Outpatient [facility] [id number] [place] 00:00:00 00:00:00 RAY [address] 2020-04-21 2020-04-21 Emergency TU, YEN-TE [facility] [id number] [place] 00:00:00 00:00:[address] Results Test Description Test Time Test Comments Results Result Comments Source Miscellaneous referral test 2020-05-09 15:24:58 Test Item Value Reference Range Interpretation Comme nts [facility] test name (test HIV-1 RNA QUAL PCR code = 2566) [facility] test result (test see note Human Immunodeficiency Virus 1 code = 1730) (HIV-1) by Qual itative Graduate Recruiter-M ediated Amplification ( TMA) [facility] test code 3010624 H IV-1 by Qualitative TMA See Note SOURCE/SPECIMEN PLASMA HIV-1 RNA, QUALITATIV E TMA HIV-1 RNA, QL TMA TNP Test Not Performed. Initial testing necessitated a repeat, but there was insufficien t sample to perform repeat. SAMPLE LEFT FOR REPEAT IS 50 uL . NEED 1000 uL TO RUN REPEAT. Thi s test was performed using the APTIMA(R) HIV-RNA Qualita tive Assay (Gen-Probe). Test performed by:MS [employer] [place] [id number] KYLE (test code = KYLE) HIVQL - HIV-1 RNA, Qualitative TMA (FROZEN)[facility] Test Code: 5719291Dggwiw: plasma [place] MethodistBasic metabolic [id number] 11:45:54 Test Item Value Reference Range Interpretation Comments Sodium (test code = 2951-2) 138 135- 148 mEq/L Potassium (test code = 2823-3) 3.6 3.5- 5.0 mEq/L Chloride (test code = 2075-0) 99 98- 112 mEq/L CO2 (test code = 2027-9) 26 24- 31 mEq/L Anion gap (test code = 95815-4) 13@ANIO 7- 15 mEq/L BUN (test code = 3094-0) 17 mg/dL 8-23 Creatinine (test code = 2160-0) 1.11 mg/dL 0.5-0.9 H Glucose (test code = 2345-7) 128 mg/dL 65-99 H Calcium (test code = 76402-1) 8.9 mg/dL 8.8-10.2 Lab Interpretation (test code = Abnormal 90655-5) [place] MethodistMagnesium [id number] 11:45:54 Test Item Value Reference Range Interpretation Comments Magnesium (test code = 85062-1) 1.9 mg/dL 1.6-2.4 [place] MethodistEstimated [id number] 11:45:54 Test Item Value Reference Range Interpretation Comments Estimated GFR (test 52 mL/min/1.73 m2 Maria Elena grubbs Units code = 5488) InterpretationG 1 >=90 Aracely l or highG2 60-89 Mildly decrease dG3a 45-59 Mil dly to moderately decr tanggC8l 30-44 Moderately to s everely decreasedG4 15-29 Severe ly decreasedG5 <15 Kidney ramsey lureThe eGFR was calcul ated using the Chron ic Kidney Disease Epidemiology Collaboration ( CKD-EPI) equation. Interpretation is based on recommendati ons of the National dney [facility]-Kidn ey Disease Outcome s Quality Initiat bruno (NKF-KDOQI) pub lished in 2013. Lab Interpretation Abnormal (test code = 75940-5) Meza MethodistCBC with platelet and [id number] 11:11:36 Test Item Value Reference Range Interpretation Comments WBC (test code = 82774-6) 6.33 4.50- 11.00 k/uL RBC (test code = 43260-3) 4.23 m/uL 4.2-5.5 HGB (test code = 718-7) 10.3 g/dL 12-16 L HCT (test code = 4544-3) 36.3 % 37-47 L MCV (test code = 787-2) 85.8 fL 82-100 MCH (test code = 785-6) 24.3 pg 27-34 L MCHC (test code = 786-4) 28.4 g/dL 31-37 L RDW - SD (test code = 52.8 fL 37-55 21362-9) MPV (test code = 61167-4) 9.8 fL 8.8-13.2 Platelet count (test code 249 150- 400 k/uL = 94107-0) Nucleated RBC (test code 0.50 /100 WBC = 00001-4) Neutrophils (test code = 71.1 % 39-69 H 77843-4) Lymphocytes (test code = 14.8 % 25-45 L 59220-8) Monocytes (test code = 9.8 % 0-10 23596-4) Eosinophils (test code = 3.0 % 0-5 07091-5) Basophils (test code = 0.5 % 0-1 00426-3) Immature granulocytes 0.8 % 0-1 "Immat ure (test code = 80371-8) granul ocytes" (promyelocytes, myelocytes, metamyelocytes) Lab Interpretation (test Abnormal code = 99387-2) Meza MethodistThyroid stimulating [id number] 07:24:57 Test Item Value Reference Range Interpretation Comments TSH (test code = 3016-3) 3.83 0.27- 4.20 uIU/mL [facility] [id number] 07:18:42 Test Item Value Reference Range Interpretation Comments Albumin (test code = 2.8 g/dL 3.5-5 L 1751-7) Total bilirubin (test 0.5 mg/dL 0-1.2 code = 1974-2) Bilirubin direct (test <0.2 0-0.3 code = 1967-) Alkaline phosphatase 72 U/L 35-104 (test code = 6768-6) Protein (test code = 6.3 g/dL 6.3-8.3 -[place] n 2885-2) 4.6-7.0 g /dL1 week 4.4-7.6 g/dL 7 months-1year 5.1-7.3 g/dL 1-2 years 5.6-7.5 g/dL>3 years 6.0-8.0 g/eP80-152 6.3-8. 3 g/dL ALT (test code = 1742-6) 70 U/L 5-50 H AST (test code = 1920-8) 59 U/L 10-35 H Lab Interpretation (test Abnormal code = 69070-3) [facility] [id number] 06:45:47 Test Item Value Reference Range Interpretation Comments WBC (test code = 58475-7) 5.66 4.50- 11.00 k/uL RBC (test code = 49876-0) 4.04 m/uL 4.2-5.5 L HGB (test code = 718-7) 10.1 g/dL 12-16 L HCT (test code = 4544-3) 35.5 % 37-47 L MCV (test code = 787-2) 87.9 fL 82-100 MCH (test code = 785-6) 25.0 pg 27-34 L MCHC (test code = 786-4) 28.5 g/dL 31-37 L RDW - SD (test code = 43440-9) 55.4 fL 37-55 H MPV (test code = 42692-2) 10.1 fL 8.8-13.2 Platelet count (test code = 190 150- 400 k/uL 47151-7) Nucleated RBC (test code = 0.00 /100 WBC 42588-8) Lab Interpretation (test code = Abnormal 34889-3) [place] [facility] upper [id number] 22:57:00Interface, Radiology Results In - 04/30/2020 10:58 PM SENIOR QA ENGINEER Vascular Ultrasound Laboratory Upper Extremity Venous [address] [address] Pat.Name: LIO WATTS Pat.ID: [id number] .Date: 04/30/2020 Refer.MD: ELISEO ARCE MD Exam Time: 5:04:00 PM Study Type:UE Venous Age: 9 1955,65Y Sex: FEMALE Sonogrphr: IBIS Espinosa RCS Pat. Stat.:Inpatient Room: [place] [address] 2020 Tape Vol: , CPT - 4: 21245 Echo Event ID:[id number] Order ID: [id number] Reason for Study:Arm swelling or pain, DVT suspected. History ofhiatal hernia, esophageal stricture, HIV, HTN, COPD, paroxysmal Afib,ROHAN.Procedures: Colorflow, Grayscale/2D, Pulsed wave DopplerRace: C SUMMARY: -------DUPLEX SCAN OBSERVATIONS Right LeftIJ Normal NormalSubclavian Normal NormalAxillary Normal NormalBrachial Normal NormalBasilic Obstructed NormalCephalic Small SmallRIGHT: The basilic vein is non compressible with echogenic materialfilling the lumen; color flow and Doppler signals are absent. Theremaining visualized veins are patent.LEFT: There is normal compressibility and no evidence of echogenicmaterial noted within the lumen of the visualized veins. Color flowand Doppler signals are normal. Limited visualization of the veins inthe distal upper arm due to dressing and bandage.IA ELIMINARY FINDINGS1. Total superficial vein thrombosis of the right basilic vein.2. No evidence of deep vein thrombosis of the visualized veins.*Preliminary result reported to ASHLEY Santos @ 2242 on 04/30/20.PHYSICIAN INTERPRETATION Venous examination of the both upper extremities and neck demonstratednoevidence of deep venous thrombosis. Total superficial vein thrombosis of the right basilic vein.---- FINDINGS: Sig vida 04/30/2020 10:57PMFrancis Cabral MD, VIEveleth MethodistXR Chest 2 Vw 2020-04-30 16:21:01Hm Interface, Radiology Results - 04/30/2020 4:24 PM CSTEXAMINATION: XR CHEST 2 CLINICAL HISTORY: amio gttCOMPARISON: None.FINDINGS:Two views of the chest demonstrate mild cardiomegaly. Pulmonary vasculature is within normal limits.No consolidation or pleural effusion is seen. There is no evidence of pneumothorax. Low lung volume is noted.Bilateral shoulders arthroplasty changes are noted.IMPRESSION:No radiographic evidence of acute cardiopulmonary process or active disease of the chest.[id number] MethodistSurgical pathology [id number] 14:07:52 Test Item Value Reference Range Interpretation Comments Case number (test code = [id number]) Surgical pathology See link below for report (test code = PDF Lab Report 2255) Result status (test code This is Final Report = [id number]) for [id number] [place] MethodistECG 12 [id number] 12:40:32 Test Item Value Reference Range Interpretation Comments Ventricular rate (test 135 code = 253) Atrial rate (test code 159 = 255) QRSD interval (test 82 code = 260) QT interval (test code 344 = 264) QTC interval (test 516 code = 265) QRS axis 1 (test code -6 = 268) T wave axis (test code 167 = 270) EKG impression (test Atrial fibrillation code = 273) with rapid ventricular response-Voltage criteria for left ventricular hypertrophy-ST & T wave abnormality, consider lateral ischemia-Abnormal ECG-In automated comparison with ECG of 26-APR-2020 20:24,-Vent. rate has increased BY 50 BPM-ST now depressed in Lateral leads-Nonspecific T wave abnormality now evident in Inferior leads-Inverted T waves have replaced nonspecific T wave abnormality in Lateral leads- Derrick MethodistMidline Unsuccessful [id number] 11:14:34ANicole zhang RN 04/30/2020 11:25 AMMidline Unsuccessful Attempt Date/Time: 04/30/2020 11:14 AMPerformed by: iNcole Dailey, RNAuthorized by: Eliseo Arce MD Consent: Consent obtained: Verbal Consent given by: Patient Risks discussed: arterial puncture, incorrect placement, bleeding,infection, superficial thrombus, deep vein thrombus and nerve damage Alternatives discussed: Alternative treatmentUniversal protocol: Procedure explained and questions answered to patient or proxy's satisfaction: yes Relevant documents present and verified: yes Test results available and properly labeled: yes Imaging studies available: yes Required blood products, implants, devices, an d special equipment available: yes Site/side marked: yes Immediately prior to procedure, a time out was called: yes Patient identity confirmed: Verbally with patient, arm band, provided demographic data and hospital-assigned identification numberPre-procedure details: Hand hygiene: Hand hygiene performed prior to insertion Sterile barrier technique: All elements of maximal sterile technique followed Skin preparation: 2% chlorhexidine Skin preparation agent: Skin preparation agentcompletely dried prior to procedure Anesthesia (see MAR for exact dosages): Anesthesia method: Local infiltration Local anesthetic: Lidocaine 1% w/o epi Route of administration: SubcutaneousUnsuccessful Attempt(s): Successful PICC Placement: Yes Location(s) Attempted: Right brachial Number of attempts: 3 Problems or Complications: Unable to dilator.Procedure details: Landmarks identified: yes Ultrasound guidance: yes Blood Loss Amount: Less than 20 mLPost-procedure details: Number of PICC kits used during procedure: 1Comments: Assessed Right arm first, Right basilic is non-compressible, switched to left arm, Left basilic vein splits, and very small cephalic vein. Itried twice to access brachial vein but patient felt a sharp pain so I asked ASHLEY Valdivia to access the v ein, she was able to access the brachial vein without pain but dilator is unable to advance completely . Procedure aborted and ASHLEY Valdivia able to place a PIV g.20 in lower arm .Derrick MethodistXR Abdomen 1 Vw Wmclvrxg4559-75-39 10:20:14 Interface, Radiology Results Incoming - 04/30/2020 10:23 AM CSTEXAMINATION: XR ABDOMEN 1 VW PORTABLECLINICAL HISTORY: Abdominal pain post opCOMPARISON: No priorIMPRESSION:1.Residual barium within the colon throughout. No small bowel obstruction noted.[id number] VyaijgaslSdtqex9526-38-13 14:57:57Carlee Malloy MD 04/28/2020 2:59 PMAirwayPerformed by: Carlee Malloy MDAuthorized by: Carlee Malloy MD Location: ORUrgency: ElectiveDifficult Airway: No Anesthesiologist: Kvng Malloy MDResident/BOAT ENGINE MECHANIC/AA: Allan Morocho DOPerformed by: resident/BOAT ENGINE MECHANIC/AAPreoxygenated bkib071% O2: Yes C- spine Precautions Maintained Throughout: Yes Mask Ventilation: Easy maskFinal Airway Type: Endotracheal airwayFinal Endotracheal Airway: ETTCuffed: Yes Technique Used: Direct laryngoscopyDevices/Methods Used in Placement: Intubating styletInsertion Site: OralBlade Type: MacintoshLaryngoscope Blade/Videolaryngoscope Blade Size: 3ETT Size (mm): 7.0Placement Verified by: CO2 detection Laryngoscopic view: Grade I - full view of glottisRapid Sequence Induction (RSI): No Modified RSI: No Number of Attempts at Approach: 1Houston MethodistCD 4 femmak5159-04-07 10:47:52 Test Item Value Reference Range Interpretation Comments CD4% (test code = 47 % 37-57 8123-2) CD4 absolute count 426 ul 488-1340 L (test code = 98430-6) CD4 subset (test code See link below Case Number: = [id number]) for PDF Lab [id number] Report Lab Interpretation Abnormal (test code = 68755-2) Derrick JeanPOC ixobtao1404-78-57 09:03:42 Test Item Value Reference Range Interpretation Comments POC glucose (test code 117 mg/dL 65-99 H Opera tor Name: Yarbrough = 45659-1) Nelsonvicevler ID : [id number] able: [facility] Notified hollow ware maker Interpretation Abnormal (test code = 45685-8) [facility]le[facility] MethodistType and [id number] 03:57:00 Test Item Value Reference Range Interpretation Comments ABO grouping (test code = 883-9) A Rh type (test code = 71039-0) POS Antibody screen (gel) (test code = NEG 890-4) [facility] MethodistPhosphorus [id number] 03:27:52 Test Item Value Reference Range Interpretation Comments Phosphorus (test code = 2777-1) 3.2 mg/dL 2.4-4.5 [facility] MethodistPartial thromboplastin time, bakczewtt0919-94-61 03:22:15 Test Item Value Reference Range Interpretation Comments PTT (test code = 28.3 23.0- 36.0 [place] [address]-7) unfractionated heparin is61.0-112.0 se conds which corresponds to Anti-Xa0.3-0.7 U/ml. [facility] MethodistProthrombin time with [id number] 03:21:36 Test Item Value Reference Range Interpretation Comments Prothrombin time (test 13.6 11.5- 14.5 sec code = 5902-2) INR (test code = 1.0 The Interna tional 57011-0) Normalized Rati o (INR) is a therapeutic m onitoring tool for patien ts who are stable on oral anticoagulant t herapy. An INR of 2.0-3.0 is suggested for d eep vein thrombosis/pulm onary embolism. [facility] MethodistTransthoracic Echocardiogram Complete, (w Contrast, Strain and 3D if needed)2020-04-27 18:20:00Interface, Radiology Results In - 04/27/2020 6:21 PM SENIOR QA ENGINEER Echocardiography Report [address] [address], [place] [address] Pat.Name: LIO WATTS Marta.ID: [id number].Date: 04/27/2020 Refer.MD: ELISEO ARCE MD Exam Time: 2:21:00 PM Study Type:Routine Echo Height: 64in Weight: 213lb BSA: 2.01 m2 Age: 9 1955,65Y Sex: FEMALE BP: 128/89 HR: 102 bpm Sonogrphr: SANKET Perkins Pat. Stat.:Inpatient Room: [facility] Study Status:Final Echo Event ID:[id number] Order ID: [id number] Reason for Study:Atrial FibrillationHistory / Clinical:Hypertension Procedures: 2D Echo, Colorflow Doppler, PortableRace: C SUMMARY: LV EF is normal. Estimated EF is 65-69%RV systolic function is normal.LA volumeis severely enlarged. FINDINGS: LV: LV size is normal. LV EF is normal. Overall wall motion is normal. Estimated EF is 65-69%RV: RV size is normal. RV systolic function is normal.LA: LA volume is severely enlarged.RA: RA size is normal.AO: Aortic root diameter is normal.LIZET: No pericardial effusion and anterior fat pad is present.AV: No structural AV abnormalities noted.MV: No structural MV abnormalities noted.PV: No structural PV abnormalities noted. A trace of pulmonic regurgitation. TV: No structural TV abnormalities noted. A trace of tricuspid regurgitation Saha: Unable to assess diastolic function due to A. fib.Other: Insufficient TR jet to estimate PA systolic pressure. MEASUREMENTS: 2DParasternal Long [place] Ao An 2.2 cm LVPWd 1 cm Ao Rtd 3.5 cm Index 1.7 cm/m2 LA Ds 4.6 cm IVSd 1 cm RWT 0.43 LVIDd 4.8 cm Index 2.4 cm/m2 LV Mass 172 g (87-129) LVIDs 3.2 cm LVM Index 86 g/m2 LV%fs 33 % LVOT 2 cm LA Sng Plane LA Area 30 cm2 (8.8-23.4) LA Vol 114 ml Index 57 ml/m2 LA LngAx 6.3 cm Ascending Aorta Asc Dim 3.8 cm LVOT LVOT Area 3.1 cm2 DOPPLERLVOT Stroke Vol & Cardiac Out LVOT TVI 22 cm HR 91 bpm LVOT LVOT SV 68 ml LVOT CO 6.2 l/min SVi 34 ml/m2 LVOT CI 3.1 l/m/m2 Signed 04/27/2020 06:20 PMBobby ContrerasCOVID-19 qualitative [id number] 21:42:22 Test Item Value Reference Range Interpretation Comments Interpretation (test Negative results do code = 7977506) not preclude 2019-nCoV infection and should not be used as the sole basis for treatment or other patient management decisions. Negative results must be combined with clinical observations, patient history, and epidemiological information. COVID-19 qualitative Not-Detected Not-Detected PCR result (test code = 41167-7) COVID-19 qualitative See link below for C ase Number: PCR (test code = PDF Lab Report [id number]) [facility] RastafariAurora East Hospitalassium kwaor2825-01-85 21:28:10 Test Item Value Reference Range Interpretation Comments Potassium (test code = 2823-3) 3.3 3.5- 5.0 mEq/L L Lab Interpretation (test code = Abnormal 51757-2) [facility] Esophagram Double [id number] 12:07:12Hm Interface, Radiology Results Incoming - 04/25/2020 12:10 PM CSTEXAMINATION: FL ESOPHAGRAM DOUBLECONTRASTCLINICAL HISTORY: R13.10 Dysphagia unspecified, K44.9 Diaphragmatic hernia without obstruction or gangrene, Dysphagia unexplained, dysphagia hiatal herniaCOMPARISON: Limited comparison with chest CT from April 21, 2020TECHNIQUE: Esophagram was performed with effervescent granules and barium.FLUOROSCOPIC TIME: 1.5 minutes.NUMBER OF IMAGES: 9 fluoroscopic images.IMPRESSION:No strictures. Normal esophageal mucosa.Nonspecific esophageal dysmotility, with mildly delayed esophageal emptying and scattered nonpropulsive tertiary contraction waves.There is a moderately sized type III hiatal hernia. There was mild spontaneous gastroesophageal reflux.[id number] MethodistCT Chest Wo Contrast Abdomen Wo Contrast Pelvis Wo [id number] 09:23:55Hm Interface, Radiology Results 04/21/2020 9:27 AM CSTEXAMINATION: CT CHEST WO CONTRASTABDOMEN WO CONTRAST PELVIS WO CONTRASTCLINICAL HISTORY: abd pain hiatalCOMPARISON: None.TECHNIQUE: CT of the chest, abdomen and pelvis without intravenous contrast. Sagittal and coronal computerized reformatted images were also obtained. Absence of intravenous contrast decreases sensitivity for detection of focal lesions and vascular pathology. CT imaging was performed with iterative reconstruction techniques and/or automated exposure control to reduce radiation dose. FINDINGS:CHEST:LUNGS AND AIRWAYS: Dependent atelectasis. Additional more nodular consolidations in the posterior right lower lobe (e.g. 8 mm posterior nodule series 302, image 43, and 6 mm medial nodule image 56). Left upper lobe2 mm nodule is too small to require follow-up (series 302, image 35). PLEURA: No pleural effusion or pneumothorax. CARDIOVASCULAR: The ascending aorta is mildly dilated, measuring 4.1 cm. Main pulmonary artery is severely dilated, measuring 4.1 cm. Moderate coronary artery calcifications.MEDIASTINUM AND LYMPH NODES: No mediastinal or hilar adenopathy. ABDOMEN AND PELVIS:HEPATOBILIARY: No focal hepatic lesions. No biliary ductal dilation. Status post cholecystectomy.SPLEEN: No splenomegaly.PANCREAS: No focal masses or ductal dilation. Punctate calcification.ADRENALS: No adrenal nodules.KIDNEYS: Few bilateral renal cysts, largest on the left measuring up to 4.2 cm. Punctate nonobstructing right calyceal stone. Right hilar vascular calcifications. No hydronephrosis or solid masses.GI TRACT: Moderate type III hiatal hernia. No bowel distention or wall thickening. The appendix is not definitively visualized, but there are no secondary signs of right lower quadrant inflammation.PERITONEUM/RETROPERITONEUM: No free air or fluid. No lymphadenopathy.VASCULATURE: Aortic atherosclerosis. There is ectasia of the infrarenal abdominal aorta measuring up to 2.3 cm.PELVIC ORGANS/BLADDER: Unremarkable.BONES AND SOFT TISSUES: Degenerative changes throughout the spine. Bilateral total shoulder arthropl asties.IMPRESSION:1.Moderate type III hiatal hernia.2.Groundglass and nodularity in the dependent lungs is largely due to hypoventilatory changes, although there could be a small component of superimposed aspiration. Given the nodularity involving some of the changes, recommend follow-up chest CT in 6months.3.Main pulmonary artery is dilated up to 4.1 cm, which can be seen in but is not specific forpulmonary hypertension. Ascending aorta is dilated up to 4.1 cm, and there is mild ectasia of the infrarenal abdominal aorta.4.Additional chronic and incidental findings as detailed above.[facility]-[id number] and approved by resident care aide/fellow: Jenna Valenzuela M.D.I, Medhat Flowers Jr., M.D., personally reviewed the images and resident's/fellow's findings and agree with the final report.[facility] Methodcibola general hospitalComprehensive metabolic [id number] 08:09:22 Test Item Value Reference Range Interpretation Comments Sodium (test code = 143 135- 148 mEq/L 2951-2) Potassium (test code = 3.8 3.5- 5.0 mEq/L 2823-3) Chloride (test code = 107 98- 112 mEq/L 2075-0) CO2 (test code = 8-9) 26 24- 31 mEq/L Anion gap (test code = 10@ANIO 7- 15 mEq/L 19145-3) BUN (test code = 3094-0) 18 mg/dL 8-23 Creatinine (test code = 1.09 mg/dL 0.5-0.9 H 2160-0) Glucose (test code = 126 mg/dL 65-99 H 2345-7) Calcium (test code = 9.0 mg/dL 8.8-10.2 69806-4) Protein (test code = 6.7 g/dL 6.3-8.3 -[place] n 2885-2) 4.6-7.0 g/dL1 week 4.4-7 .6 g/dL7 months-1y ear 5.1-7 .3 g/dL1-2 years 5.6-7 .5 g/dL>3 years 6.0-8 .0 g/cZ38-065 6.3-8 .3 g/dL Albumin (test code = 2.9 g/dL 3.5-5 L 1751-7) A/G ratio (test code = 0.8 0.7-3.8 1759-0) Alkaline phosphatase 57 U/L 35-104 (test code = 6768-6) AST (test code = 1920-8) 17 U/L 10-35 ALT (test code = 1742-6) 13 U/L 5-50 Total bilirubin (test 0.3 mg/dL 0-1.2 code = 1975-2) Lab Interpretation (test Abnormal code = 12532-9) [facility] MethodistLipase [id number] 08:09:22 Test Item Value Reference Range Interpretation Comments Lipase (test code = 3040-3) 22 U/L 13-60 [facility]le[facility] MethodistLactic acid level, SEPSIS - Now and repeat 2x every 3 hours 2020-04-21 08:09:20 Test Item Value Reference Range Interpretation Comments Lactic acid (test code = 32534-9) 1.2 mmol/L 0.5-2.2 [facility] MethodistCHLAMYDIA, GC, TV,PCR, IN [id number] 15:38:00 Test Item Value Reference Range Interpretation Comments FT (test code = CHTR) Not detected (qualifier Not Detected N value) FT (test code = Not detected (qualifier Not Detected N NGONO) value) FT (test code = TRVG) Not detected (qualifier Not Detected N value) URINALYSIS WITH [id number] 10:57:00 Test Item Value Reference Range Interpretation Comments Color (test code = UCOLR) Dk. Yellow Clarity (test code = UCLAR) Hazy Glucose (test code = UGLUC) NEGATIVE NEGATIVE N Bilirubin (test code = UBILI) NEGATIVE NEGATIVE N Ketones (test code = UKET) NEGATIVE NEGATIVE N Specific [place] (test code = 1.025 1.005-1.030 A USPGR) [...]
--- OUTSIDE RECORDS SUMMARY | 2020-05-24 15:19 | XMS REPORT | Clinical Summary ---
:1955 Author Organization [facility] - [facility] Address [address] [place] [address] Care Team Providers Name Role Phone Rahman [...] 0 Active mouth 3 (three) times daily. albuterol 90 [...] anxiety times daily as disorder needed (anxiety). emtricitabine-tenofovir Take one po 30 tablet 5 04/14/2020 Active alafen (DESCOVY) daily tabletIndications: Symptomatic HIV infection raltegravir (ISENTRESS) Take 1 tablet by 60 tablet 5 0 Active 400 mg mouth 2 (two) tabletIndications: times daily. Symptomatic HIV infection Active Problems Problem Noted Date Obesity (BMI 30-39.9) 05/10/2016 Anemia 02/22/2015 Hypovolemia due to hemorrhage 02/21/2015 Chest pain 02/21/2015 S/p reverse total shoulder arthroplasty 02/17/2015 Posttraumatic stress disorder 09/27/2012 Human immunodeficiency virus (HIV) disease 11/18/2010 Bipolar 2 disorder 11/18/2010 Chronic hepatitis C 11/18/2010 Hypertension 11/18/2010 Encounters Date Type Specialty Care Team Description 05/19/2020 Telephone Infectious Disease Santiago Cardenas PA Erro neous encounter-disre carolyn 04/24/2020 Telephone Infectious Santiago Denton PA Erro r 04/14/2020 Telephone Infectious Disease Santiago Cardenas PA Refi ll Request 03/03/2020 Travel from Last 3 Months Immunizations Name Administration [...] Treatment Date Type Specialty Care Team Description 06/04/2020 Office Visit Infectious Disease Santiago Cardenas PA [address] [place] [address] Health Maintenance Due Date Last Done [...] , SERIES 10/04/2001 Implants Implanted Type Area Data Warehouse Manager Device Shelf Model / Identifier Expiration Serial / Lot Date Central Screw SHOULDER Left: Biomet 03/23/2024 [id number] / Implanted: Qty: 1 on 02/17/2015 by Roland Dixon MD at [facility] Shoulder 3 [id number] / [id number] Mini Humeral Stem SHOULDER Left: Biomet 07/31/2024 1 [id number] / Implanted: Qty: 1 on 02/17/2015 by Roland Dixon MD at [facility] Shoulder 4 [id number] / [id number] Fixed Locking Screw SHOULDER Left: Biomet 5 [id number] / Implanted: Qty: 1 on 02/17/2015 by Roland Dixon MD at [facility] Shoulder 8 [id number] / [id number] Glenosphere SHOULDER Left: Biomet 12/05/2024 [id number] / Implanted: Qty: 1 on 02/17/2015 by Roland Dixon MD at [facility] Shoulder 7 [id number] / [id number] Fixed Locking Screw SHOULDER Left: Biomet 12/30/2024 [id number] / Implanted: Qty: 1 on 02/17/2015 by Roland Dixon MD at [facility] Shoulder 0 [id number] / [id number] Fixed Locking Screw SHOULDER Left: Biomet 12/31/2024 [id number] / Implanted: Qty: 1 on 02/17/2015 by Roland Dixon MD at [facility] Shoulder 0 [id number] / [id number] Humeral Tray With Locking Ring SHOULDER Left: Biomet 12/16/2024 [id number] / Implanted: Qty: 1 on 02/17/2015 by Roland Dixon MD at [facility] Shoulder 8 [id number] / [id number] Glensphere Mini Baseplate SHOULDER Left: Biomet 01/21 [id number] / Implanted: Qty: 1 on 02/17/2015 by Roland Dixon MD at [facility] Shoulder 1 [id number] / [id number] Humeral Bearing SHOULDER Left: Biomet 12/12/2019 XL- [id number] / Implanted: Qty: 1 on 02/17/2015 by Roland Dixon MD at [facility] Shoulder 5 [id number] / [id number] Fixed Locking Scew SHOULDER Left: Biomet 12/11/2024 [id number] / Implanted: Qty: 1 on 02/17/2015 by Roland Dixon MD at [facility] Shoulder 8 [id number] / [id number] Results Not on filefrom Last 3 Months Insurance Payer Benefit Plan / Subscriber ID Effective Phone Address T ype Group Dates [facility] STAR [id number] 2020-Pr Me dicaid HEALTHCARE COMM PLUS esent PLAN - MANAGED MEDICAID [facility] [id number] 2019-Pre Medicar e Adv HEALTHCARE - HEALTHCARE DUAL sent H MO MANAGED COMPLETE HMO MEDICARE [facility] [id number] 2019-Pre P O BOX Beh avioral BEHAVIORAL BEHAVIORAL sent [id number] [place] [address] [facility] Self 1955 [phone] [address] [place] [address] Advance Directives Type Date Recorded Patient Testing And Regulating Technician Explanati on Advance Directives and Living 01/20/2015 9:28 AM Will Power of Roll Hand 01/20/2015 9:28 AM
--- OUTSIDE RECORDS SUMMARY | 2020-05-24 15:19 | XMS REPORT | Summary of Care ---
:1955 Author Organization [facility] - [facility] Address [address] [place] [address] Care Team Providers Name Role Phone Rahman Primary Care Provider Reason for Visit Reason Comments Erroneous encounter-disregard Encounter Details Date Type Department Care Team Description 05/19/2020 Telephone [facility] Infectious [place], ALEJO Pal Erroneous Diseases- [address] encounter-disregard [facility] Clinics [id number] [place] [address] Floor [address] [place], [place] [phone] Allergies Active Allergy Reactions Severity Noted Date Comments Metoclopramide Unknown - See comments 05/28/2016 Metoclopramide Hcl Anxiety 02/14/2015 Butorphanol Tartrate Hallucinations High 07/06/2010 Sulfamethoxazole Unknown - See comments 04/23/2016 Acetaminophen-Codeine Nausea and/or Vomiting 7 documented as of this encounter (statuses as of 05/19/2020) Medications Medication Sig Dispensed Refills Start Date [...] (two) tabletIndications: times daily. Symptomatic HIV infection documented as of this encounter (statuses as of 05/19/2020) Active Problems Problem Noted Date Obesity (BMI 30-39.9) 05/10/2016 Anemia 02/22/2015 Hypovolemia due to hemorrhage 02/21/2015 Chest pain 02/21/2015 S/p reverse total shoulder arthroplasty 02/17/2015 Posttraumatic stress disorder 09/27/2012 Human immunodeficiency virus (HIV) disease 11/18/2010 Bipolar 2 disorder 11/18/2010 Chronic hepatitis C 11/18/2010 Hypertension 11/18/2010 documented as of this encounter (statuses as of 05/19/2020) Immunizations Name Administration Dates Next Due HEPATITIS [...] this encounter Miscellaneous Notes Telephone Encounter - Magaly Diamond - 05/19/2020 10:51 AM CSTError. Please close encounter.thank you documented in this encounter Plan of Treatment Date Type Specialty Care Team Description 06/04/2020 Office Visit Infectious Disease Santiago Cardenas PA [address] [place] [address] 06/16/2020 Office Visit Psychiatry Jeremiah Ayala M D [address] [place] [address] [address] [place] [phone] Health Maintenance Due Date Last Done [...] of this encounter Implants Implanted Type Area Code Official Device Shelf Model / Identifier Expiration Serial / Lot Date Central Screw SHOULDER Left: Biomet 03/23/2024 [id number] 5 / Implanted: Qty: 1 on 02/17/2015 by Roland Dixon MD at [facility] Shoulder 3 [id number] / [id number] Mini Humeral Stem SHOULDER Left: Biomet 07/31/2024 1 24440 / Implanted: Qty: 1 on 02/17/2015 by Roland Dixon MD at [facility] Shoulder 4 [id number] / [id number] Fixed Locking Screw SHOULDER Left: Biomet 5 [id number] / Implanted: Qty: 1 on 02/17/2015 by Roland Dixon MD at [facility] Shoulder 8 [id number] / [id number] [employer]osphere SHOULDER Left: Biomet 12/05/2024 [id number] / Implanted: Qty: 1 on 02/17/2015 by Roland Dixon MD at [facility] Shoulder 7 [id number] / [id number] Fixed Locking Screw SHOULDER Left: Biomet 12/30/2024 [id number] / Implanted: Qty: 1 on 02/17/2015 by Roland Dixon MD at [facility] Shoulder 0 [id number] / [id number] Fixed Locking Screw SHOULDER Left: Biomet 12/31/2024 [id number] / Implanted: Qty: 1 on 02/17/2015 by Roland Dixon MD at [facility] Shoulder 0 [id number] / [id number] Humeral Tray With Locking Ring SHOULDER Left: Biomet 12/16/2024 [id number] / Implanted: Qty: 1 on 02/17/2015 by Roland Dixon MD at [facility] Shoulder 8 [id number] / [id number] Glensphere Mini Baseplate SHOULDER Left: Biomet 01/21 [id number] / Implanted: Qty: 1 on 02/17/2015 by Roland Dixon MD at [facility] Shoulder 1 [id number] / [id number] Humeral Bearing SHOULDER Left: Biomet 12/12/2019 XL- [id number] / Implanted: Qty: 1 on 02/17/2015 by Roland Dixon MD at [facility] Shoulder 5 [id number] / [id number] Fixed Locking Scew SHOULDER Left: Biomet 12/11/2024 [id number] / Implanted: Qty: 1 on 02/17/2015 by Roland Dixon MD at [facility] Shoulder 8 [id number] / [id number] documented as of this encounter Results Not on filedocumented in this encounter Insurance Payer Benefit Plan / Subscriber ID Effective Phone Address T ype Group Dates [facility] STAR [id number] 2020-Pr Me dicaid HEALTHCARE COMM PLUS esent PLAN - MANAGED MEDICAID [facility] [id number] 2019-Pre Medicar e Adv HEALTHCARE - HEALTHCARE DUAL sent H MO MANAGED COMPLETE HMO MEDICARE [facility] [id number] 2019-Pre P O BOX Beh avioral BEHAVIORAL BEHAVIORAL sent [id number] [place] [address] documented as of this encounter Advance Directives Type Date Recorded Patient Tower Climber Explanati on Advance Directives and Living 01/20/2015 9:28 AM Will Power of Light Industrial 01/20/2015 9:28 AM
--- NOTE | 2020-05-24 19:10 | RAD REPORT ---
EXAM DESCRIPTION: Patrick Single View05/24/2020 6:59 pm CLINICAL HISTORY: Cough COMPARISON: March 2020 FINDINGS: The lungs appear clear of acute infiltrate. The heart is mildly enlarged IMPRESSION: No acute abnormalities displayed
[2020-05-24] MEDS ORDERED: KETOROLAC 30 MG/ML INJ ONE (19:44)
[2020-05-24] MEDS ORDERED: MORPHINE 2 MG/ML SYR ONE (19:47)
[2020-05-24 20:05] LABS: SARS-COV-2 RT PCR NEGATIVE (NEGATIVE)
[2020-05-24 20:18] LABS: Absolute Lymphocytes (CBC) 1.3 K/uL (0.7-4.9); Basophils % 0.6 % (0-1.3); Hematocrit 33.5 % (36.0-45.0); Lymphocytes % 15.5 % (15.3-44.8); MPV 7.7 fL (7.6-11.3); RBC Red Blood Cell Count 4.39 M/uL (3.86-4.86)
[2020-05-24 20:43] LABS: BUN Blood Urea Nitrogen 16 mg/dL (7-18); Bicarbonate 31 mmol/L (21-32); Glucose Level 111 mg/dL (74-106); Potassium 3.3 mmol/L (3.5-5.1); Sodium Level 142 mmol/L (136-145); Troponin I < 0.02 ng/mL (0.0-0.045)
[2020-05-24] MEDS ORDERED: HYDROCODONE/APAP 7.5/325 MG TAB ONE (20:50)
--- NOTE | 2020-05-24 21:17 | ER ---
Nurse's Notes [facility] Name: Marjan Fleming Age: 65 yrs Sex: Female : 1955 Arrival Date: 05/24/2020 Time: 15:13 Bed 5 Private MD: Diagnosis: Acute upper respiratory infection, unspecified Presentation: 05/24 15:48 Chief complaint: Patient states: cough, tired, decreased appetite, V/D that began 3-4 ss days ago. Pt believes she may have COVID. Coronavirus screen: Client denies travel out of the [place] in the last 14 days. Ebola Screen: Patient denies exposure to infectious person. Patient denies travel to an Ebola-affected area in the 21 days before illness onset. Initial Sepsis Screen: Does the patient meet any 2 criteria? No. Patient's initial sepsis screen is negative. Does the patient have a suspected source of infection? No. Patient's initial sepsis screen is negative. Risk Assessment: Do you want to hurt yourself or someone else? Patient reports no desire to harm self or others. Onset of symptoms was May 21, 2020. 15:48 Method Of Arrival: Ambulatory ss 15:48 Acuity: BLAYNE 3 ss Historical: - Allergies: 15:50 Bactrim DS; ss 15:50 butorphanol tartrate; ss 15:50 Fentanyl; ss 15:50 metoclopramide HCl; ss 15:50 Stadol; ss 15:50 sulfamethoxazole (bulk); ss 15:50 TRIMETHOPRIM; ss - PMHx: 15:50 Anxiety; Atrial Fib; Bipolar disorder; Chronic pain; COPD; esophageal varices; ss Hepatitis; HIV; Hypertension; Panic Attacks; Migraines; - PSHx: 15:50 Cholecystectomy; Appendectomy; Cardiac Cath; ss - Immunization history:: Adult Immunizations up to date. - Social history:: Smoking status: Patient/guardian denies using tobacco, but has a distant history of tobacco abuse. Screenin:01 Abuse screen: Denies threats or abuse. Nutritional screening: No deficits noted. em Tuberculosis screening: No symptoms or risk factors identified. Fall Risk None identified. Assessment: 18:17 General: Appears in no apparent distress. comfortable, well developed, Behavior is sv calm, cooperative, appropriate for age. General: Reports fatigue for >3 days. Pain: Denies pain. Neuro: Level of Consciousness is awake, alert, obeys commands, Oriented to person, place, time, situation, Moves all extremities. Full function Speech is normal. Respiratory: Respiratory effort is even, unlabored, Respiratory pattern is regular, symmetrical. Respiratory: Reports cough that is non-productive. GI: Reports diarrhea, vomiting, decreased appetite. Derm: Skin is pink, warm \T\ dry. 19:00 General: Appears in no apparent distress. comfortable, Behavior is calm, cooperative, rr5 Reports feeling ill for. Pain: Complains of pain in abdomen. Neuro: Level of Consciousness is awake, alert, obeys commands, Oriented to person, place, time. Cardiovascular: Capillary refill < 3 seconds Patient's skin is warm and dry. Respiratory: Airway is patent Respiratory effort is even, unlabored, Respiratory pattern is regular, symmetrical. GI: Abdomen is round non-distended. : No signs and/or symptoms were reported regarding the genitourinary system. EENT: No signs and/or symptoms were reported regarding the EENT system. Derm: Skin is intact, is healthy with good turgor, Skin temperature is warm. Musculoskeletal: Capillary refill < 3 seconds. 20:15 Reassessment: Patient appears in no apparent distress at this time. ED provider aware rr5 with order made and carried out Patient states symptoms have not improved. 21:02 Reassessment: Patient appears in no apparent distress at this time. Patient and/or mg2 family updated on plan of care and expected duration. Pain level reassessed. Patient is alert, oriented x 3, equal unlabored respirations, skin warm/dry/pink. 21:23 Reassessment: Patient appears in no apparent distress at this time. Patient is alert, rr5 oriented x 3, equal unlabored respirations, skin warm/dry/pink. discharge instruction given and explained without complaints made Patient states feeling better. Patient states symptoms have improved. Vital Signs: 15:48 BP 162 / 108; Pulse 76; Resp 20; Temp 98.4(TE); Pulse Ox 98% on R/A; Weight 97.07 kg; ss Height 5 ft. 4 in. (162.56 cm); Pain 9/10; 20:00 BP 156 / 89; Pulse 72; Resp 17; Pulse Ox 98% ; rr5 21:00 BP 145 / 70; Pulse 70; Resp 19; Pulse Ox 99% ; rr5 21:24 BP 143 / 65; Pulse 79; Resp 16; Pulse Ox 98% ; rr5 15:48 Body Mass Index 36.73 (97.07 kg, 162.56 cm) ED Course: 15:13 Patient arrived in ED. rg4 15:49 Triage completed. ss 15:50 Arm band placed on right wrist. ss 17:36 Justus Neil PA is PHCP. cp 17:36 Justus Kolb MD is Attending Physician. cp 18:00 Venu Ortega, RN is Primary Nurse. em 18:01 Patient has correct armband on for positive identification. em 18:17 COVID swab sent to lab. Flu and/or RSV swab sent to lab. Strep swab sent to lab. sv 18:59 XRAY Chest (1 view) In Process Unspecified. EDMS 19:00 Report given to Isaias RAMIREZ and Goldy RAMIREZ. sv 19:19 Inserted saline lock: 22 gauge in right forearm, using aseptic technique. Blood ds4 collected. 21:18 No provider procedures requiring assistance completed. IV discontinued, intact, mg2 bleeding controlled, No redness/swelling at site. Pressure dressing applied. Administered Medications: 19:35 Not Given (Patient Refused): TORadol - Ketorolac 15 mg IVP once rr5 19:35 Drug: morphine 2 mg {Note: rass 0.} Route: IVP; Site: right forearm; rr5 21:03 Follow up: Response: No adverse reaction mg2 20:20 Drug: Hydrocodone-Acetaminophen (7.5 mg-325 mg) 1 tabs {Note: rass 0.} Route: PO; rr5 21:02 Follow up: Response: No adverse reaction mg2 Outcome: 21:16 Discharge ordered by MD. cp 21:18 Discharged to home ambulatory. mg2 21:18 Condition: good 21:18 Discharge instructions given to patient, Instructed on discharge instructions, follow up and referral plans. medication usage, Demonstrated understanding of instructions, follow-up care, medications, Prescriptions given X 2. 21:25 Patient left the ED. rr5 Signatures: Dispatcher [employer] EDWV Leyda Santamaria RN RN Venu Ortega RN RN em Smirch, Shelby, RN RN Leonardo Cunningham ds4 Justus Neil PA PA cp Garcia, Rubi rg4 Isaias Whitaker RN RN mg2 Goldy Agee RN RN rr5 Corrections: (The following items were deleted from the chart) 19:18 18:17 General: Reports fatigue for sv sv
--- NOTE | 2020-05-24 21:17 | EDPHYS ---
Physician Documentation [facility] Name: Marjan Fleming Age: 65 yrs Sex: Female : 1955 Arrival Date: 05/24/2020 Time: 15:13 Bed 5 Private MD: ED Physician Justus Kolb HPI: 05/24 18:50 This 65 yrs old Female presents to ER via Ambulatory with complaints of Sick. cp 18:50 The patient or guardian reports cough, that is intermittent. cp 18:50 Onset: The symptoms/episode began/occurred 3 day(s) ago. cp 18:50 Associated signs and symptoms: Pertinent positives: chest pain, with cough, fever, body cp aches, chills, Pertinent negatives: diarrhea, vomiting. 18:50 Severity of symptoms: in the emergency department the symptoms are unchanged despite cp home interventions. Historical: - Allergies: 15:50 Bactrim DS; ss 15:50 butorphanol tartrate; ss 15:50 Fentanyl; ss 15:50 metoclopramide HCl; ss 15:50 Stadol; ss 15:50 sulfamethoxazole (bulk); ss 15:50 TRIMETHOPRIM; ss - PMHx: 15:50 Anxiety; Atrial Fib; Bipolar disorder; Chronic pain; COPD; esophageal varices; ss Hepatitis; HIV; Hypertension; Panic Attacks; Migraines; - PSHx: 15:50 Cholecystectomy; Appendectomy; Cardiac Cath; ss - Immunization history:: Adult Immunizations up to date. - Social history:: Smoking status: Patient/guardian denies using tobacco, but has a distant history of tobacco abuse. ROS: 19:00 Constitutional: Positive for body aches, chills, Negative for fever. cp 19:00 Eyes: Negative for injury, pain, redness, and discharge. cp 19:00 ENT: Negative for ear pain, difficulty swallowing, difficulty handling secretions. 19:00 Cardiovascular: Positive for chest pain, with cough. 19:00 Respiratory: Positive for cough, "sounds productive", Negative for wheezing. 19:00 Abdomen/GI: Negative for abdominal pain, vomiting, diarrhea, constipation. 19:00 Neuro: Negative for altered mental status, headache, weakness. 19:00 All other systems are negative. Exam: 19:05 Constitutional: The patient appears in no acute distress, alert, awake, cp non-diaphoretic, non-toxic, well developed, well nourished, uncomfortable. 19:05 Head/Face: Normocephalic, atraumatic. cp 19:05 Eyes: Periorbital structures: appear normal, Conjunctiva: normal, no exudate, no injection, Sclera: no appreciated abnormality, Lids and lashes: appear normal, bilaterally. 19:05 ENT: External ear(s): are unremarkable, Nose: is normal, Mouth: Lips: moist, Oral mucosa: moist, Posterior pharynx: Airway: no evidence of obstruction, patent, Tonsils: are normal in appearance, swelling, is not appreciated, erythema, that is mild, exudate, is not appreciated. 19:05 Neck: ROM/movement: is normal, is supple, without pain, no range of motions limitations, no meningismus. 19:05 Chest/axilla: Inspection: normal, Palpation: is normal, no crepitus, no tenderness. 19:05 Cardiovascular: Rate: normal, Rhythm: regular, Edema: is not appreciated, JVD: is not appreciated. 19:05 Respiratory: the patient does not display signs of respiratory distress, Respirations: normal, no use of accessory muscles, no retractions, no splinting, no tachypnea, labored breathing, is not present, Breath sounds: bronchial sounds, that are mild, are heard diffusely, decreased breath sounds, are not appreciated, + upper airway congestion. wheezing: is not appreciated. 19:05 Abdomen/GI: Inspection: abdomen appears normal, Palpation: abdomen is soft and non-tender, in all quadrants. 19:05 Back: pain, is absent, ROM is normal. 19:05 Neuro: Orientation: to person, place \\T\\ time. Mentation: is normal. 19:59 ECG was reviewed by the Attending Physician. cp Vital Signs: 15:48 BP 162 / 108; Pulse 76; Resp 20; Temp 98.4(TE); Pulse Ox 98% on R/A; Weight 97.07 kg; ss Height 5 ft. 4 in. (162.56 cm); Pain 9/10; 20:00 BP 156 / 89; Pulse 72; Resp 17; Pulse Ox 98% ; rr5 21:00 BP 145 / 70; Pulse 70; Resp 19; Pulse Ox 99% ; rr5 21:24 BP 143 / 65; Pulse 79; Resp 16; Pulse Ox 98% ; rr5 15:48 Body Mass Index 36.73 (97.07 kg, 162.56 cm) ss MDM: 17:39 Patient medically screened. [facility] 21:16 Data reviewed: vital signs, nurses notes, lab test result(s), EKG, radiologic studies, cp plain films. 21:16 Differential diagnosis: bronchitis, flu, URI, pneumonia. Test interpretation: by ED cp physician or midlevel provider: ECG, plain radiologic studies. Counseling: I had a detailed discussion with the patient and/or guardian regarding: the historical points, exam findings, and any diagnostic results supporting the discharge/admit diagnosis, lab results, radiology results, to return to the emergency department if symptoms worsen or persist or if there are any questions or concerns that arise at home. Response to treatment: the patient's symptoms have markedly improved after treatment, and as a result, I will discharge patient. Special discussion: Based on the patient's history, exam, and Dx evaluation, there is no indication for emergent intervention or inpatient Tx. It is understood by the patient/guardian that if the Sx's persist or worsen they need to return immediately for re-evaluation. 05/24 18:14 Order name: Strep; Complete Time: 20:08 05/24 18:49 Order name: Troponin I; Complete Time: 21:15 05/24 21:16 Interpretation: Reviewed. 05/24 18:49 Order name: BMP; Complete Time: 21:15 05/24 21:15 Interpretation: Normal except: K 3.3; GLUC 111; GFR 72. 05/24 18:49 Order name: CBC with Diff; Complete Time: 21:15 05/24 21:16 Interpretation: Normal except: HGB 10.7; HCT 33.5; MCV 76.3; MCH 24.5; RDW 16.9. 05/24 18:31 Order name: XRAY Chest (1 view); Complete Time: 19:26 05/24 19:26 Interpretation: Report reviewed. 05/24 18:49 Order name: EKG; Complete Time: 18:50 05/24 18:49 Order name: EKG - Nurse/Tech; Complete Time: 19:55 05/24 19:29 Order name: Throat Culture [facility] 05/24 20:06 Order name: COVID-19/FLU A+B; Complete Time: 20:08 EDMS 05/24 20:08 Interpretation: Reviewed. cp EC:59 Rate is 74 beats/min. Rhythm is regular. [place] interval is normal. QRS interval is normal. cp QT interval is normal. Interpreted by me. Reviewed by me. Administered Medications: 19:35 Not Given (Patient Refused): TORadol - Ketorolac 15 mg IVP once rr5 19:35 Drug: morphine 2 mg {Note: rass 0.} Route: IVP; Site: right forearm; rr5 21:03 Follow up: Response: No adverse reaction mg2 20:20 Drug: Hydrocodone-Acetaminophen (7.5 mg-325 mg) 1 tabs {Note: rass 0.} Route: PO; rr5 21:02 Follow up: Response: No adverse reaction mg2 Disposition: 05/25 07:25 Co-signature as Attending Physician, Justus Kolb MD I agree with the assessment and thomas plan of care. Disposition: 05/24/20 21:16 Discharged to Home. Impression: Acute upper respiratory infection, unspecified. - Condition is Stable. - Discharge Instructions: Upper Respiratory Infection, Adult. - Prescriptions for Tessalon Perles 100 mg Oral Capsule - take 2 capsule by ORAL route every 8 hours As needed; 30 capsule. Zithromax Z- Niall 250 mg Oral Tablet - take 1 tablet by ORAL route as directed for 5 days Day 1 - take two (2) tablets one time. Day 2, 3, 4 , 5 take one (1) tablet once daily.; 6 tablet. - Medication Reconciliation Form, Thank You Letter, Antibiotic Education, Prescription Opioid Use form. - Follow up: Private Physician; When: 2 - 3 days; Reason: Worsening of condition. - Problem is new. - Symptoms have improved. Signatures: Dispatcher [employer] EDJustus Perrin MD MD cha Smirch, Shelby, RN RN ss Justus Neil PA PA cp Roque, Raymond, RN RN rr5 Isaias Whitaker RN mg2 Corrections: (The following items were deleted from the chart) 05/24 19:13 18:15 Influenza Screen (A \\T\\ B)+BA.LAB.BRZ ordered. EDMS EDMS 19:14 18:15 CORONAVIRUS+MR.LAB.BRZ ordered. EDMS EDMS 20:10 20:09 This 65 yrs old Female presents to ER via Ambulatory with complaints of cp Sick. cp 21:25 21:16 05/24/2020 21:16 Discharged to Home. Impression: Acute upper respiratory rr5 infection, unspecified. Condition is Stable. Forms are Medication Reconciliation Form, Thank You Letter, Antibiotic Education, Prescription Opioid Use. Follow up: Private Physician; When: 2 - 3 days; Reason: Worsening of condition. Problem is new. Symptoms have improved. cp
[2020-05-24 21:49] VITALS: TEMP 98.4
[2020-05-24 21:52] VITALS: BP 143/65; O2SAT 98
--- NOTE | 2020-05-25 15:27 | EKG ---
Test Date: 2020-05-24 Test Time: 19:50:17 Insole And Heel Stiffener: MARIA D MEASUREMENT RESULTS: Intervals: Rate: 74 VT: 182 QRSD: 82 QT: 422 QTc: 468 [place]: P: 61 VT: 182 QRS: 4 T: 48 INTERPRETIVE STATEMENTS: Normal sinus rhythm Minimal voltage criteria for LVH, may be normal variant Nonspecific ST and T wave abnormality Abnormal ECG Compared to ECG 04/07/2020 01:20:00 ST (T wave) deviation now present Atrial premature complex(es) no longer present Ventricular premature complex(es) no longer present Early repolarization no longer present Electronically Signed On 05-25-20 15:26:26 AUTOMATIC LOG CUT OFF SAWYER by Per Crane
== END 2020-05-24 21:25 | disposition home or self-care (01) ==
LOC: ER 15:11
DX: J06.9 Acute upper respiratory infection, unspecified (principal); Z20.828 Contact with and (suspected) exposure to other viral communicable diseases; I10 Essential (primary) hypertension; Z21 Asymptomatic human immunodeficiency virus [HIV] infection status; Z88.1 Allergy status to other antibiotic agents; Z88.5 Allergy status to narcotic agent; Z91.09 Other allergy status, other than to drugs and biological substances
CPT/HCPCS: 93005; 87070; 85025; 80048; 36415; 87081; 84484; 0240U; 71045; 96374; 99284; J2270

== ENCOUNTER 2020-05-26 02:46 | Emergency (ER) | payer OTHER ==
--- OUTSIDE RECORDS SUMMARY | 2020-05-26 02:49 | XMS REPORT | Clinical Summary ---
:1955 Author Organization [facility] [employer] Address [address] [place] [address] Care Team Providers Name Role Phone Asked, [...] Telephone General Surgery Ramiro Mitchell MD after 05/26/2019 Surgical History Surgery Date Site/Laterality Comments ORTHOPEDIC SURGERY JOINT REPLACEMENT shoulder repla cement BREAST SURGERY cyst removed CHOLECYSTECTOMY APPENDECTOMY ARTHROPLASTY, SHOULDER, TOTAL Shoulder/Left Pr ocedure: REV. TOTAL SHOULDER 7 ARTHROPLASTY, RE MOVAL OF HARDWARE ; Surg kerry: Austin Bowles MD; Location: [facility] 19 OR; Serv ice: Orthopedics; La terality: Left; Medical devices from this surgery are in t he Implants section. REPAIR, HIATAL HERNIA, Abdomen/N/A Procedure : ROBOTIC ASSISTED LAPAROSCOPIC, ROBOT-ASSISTED 0 LAP AROSCOPIC HIATAL HERNIA REPAIR WITH TOUP ET FUNDOPLICATION; Surgeon: Eliseo Arce MD ; Location: [facility]; Service: Thoracic; Later ality: N/A; Medical devices from this surgery are in t he Implants section. ESOPHAGOGASTRODUODENOSCOPY N/A Proce dure: (EGD) 0 Esophagogastrodu odenoscopy (Egd), Endoflip; Surgeon: Eliseo Arce MD ; Location: [facility]; Service: Thoracic; Later ality: N/A; Medical devices [...] file Not on file Not on file Last Filed Vital Signs Vital Sign Reading Time Taken Comments Blood Pressure 139/85 05/03/2020 11:32 AM [facility] Pulse 102 05/03/2020 11:32 AM [facility] Temperature 36.1 C (97 F) 05/03/2020 11:32 AM [facility] Respiratory Rate 17 05/03/2020 11:32 AM [facility] Oxygen Saturation 93% 05/03/2020 11:32 AM [facility] Inhaled Oxygen Concentration - - Weight 101 kg (222 lb 1.6 oz) 05/03/2020 4:40 AM [facility] Height 162.6 cm (5' 4") 04/25/2020 11:51 AM [facility] Body Mass Index 38.12 04/25/2020 11:51 AM [facility] Plan of Treatment Date Type Specialty Care Team Description 06/02/2020 Office Visit Cardiothoracic Surgery Eliseo Arce MD [address] [facility] [address] [place], [place] [address] [phone] 06/24/2020 Office Visit Family Medicine Corin Landeros MD [address] [facility] [address] [place], [place] [address] Health Maintenance Due Date Last Done Comments DIABETES: RETINAL EYE EXAM 01/22/1966 DIABETIC FOOT EXAM 01/22/1966 COVID-19 VACCINE (#1) 1972 CERVICAL CANCER SCREENING 01/22/1977 BREAST CANCER SCREENING 01/22/2006 COLONOSCOPY SCREENING 01/22/2006 SHINGLES VACCINES (#1) 01/22/2006 INFLUENZA VACCINE 12/22/2019 03/08/2017, 01/30/2014, 2011, Additional history exists Implants Implanted Type Area Braille 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 Device Shelf Model / Identifier Expiration Serial / Date Lot Versa-Dial/Comp Ti Std Taper Used W/25mm Glenoid Basp late - [id number] IMPLANT N/A: N/A [employer] 01/22/2026 [id number] / Implanted: Qty: 1 on 10/19/2016 by Austin Bowles MD at [facility] DEVICES / [id number] 41mm Comprehensive Reverse Shoulder Glenosphere Ba - [id number] [id number] IMPLANT N/A: N/A [employer] 11/21/2023 [id number] / Implanted: Qty: 1 on 10/19/2016 by Austin Bowles MD at [facility] DEVICES / [id number] Arcom Xl 44-41 Std +3 Humeral Brg - [id number] IMPLANT Left: [employer] 07/20/2017 XL [id number] / Implanted: Qty: 1 on 10/19/2016 by Austin Bowles MD at [facility] DEVICES Shoulder / [id number] Catheter Endoflip 8cm Measurement - [id number] Surgical N/A: N/A CROSPON 10/17/2021 EF 325N / Implanted: Qty: 1 on 04/28/2020 at [facility] Implants; / Expanders; [id number] Extenders; Surgical Wires [place] Perp Vasclr Ptfe 1.2x10cm 1.65mm - [id number] Vascular N/A: N/A BARD PERIPHERAL 10/17/2024 [id number] / Implanted: Qty: 1 on 04/28/2020 at [facility] Graft VA SCULAR / [id number] [place] Perph Vasclr Ptfe 1.2x10cm 1.65mm - [id number] Vascular N/A: N/A BARD PERIPHERAL 10/17/2024 [id number] / Implanted: Qty: 1 on 04/28/2020 at [facility] Graft VA SCULAR / [id number] Humeral Tray With Locking Ring +5 Left: [employer] 03/31/2026 [id number] / Implanted: Qty: 1 on 10/19/2016 by Austin Bowles MD at [facility] Shoulder / [id number] Procedures Procedure Name Priority Date/Time Associated Comments Diagnosis [id number] Routine 05/07/2020 ESTIMATED GFR Routine 05/02/2020 9:08 Results fo r this AM [facility] procedure are i n the results section. MAGNESIUM LEVEL Routine 05/02/2020 9:08 Results for this AM [facility] procedure are i n the results section. HC COMPLETE BLD COUNT Routine 05/02/2020 9:08 Re sults for this W/AUTO DIFF AM [facility] procedure are i n the results section. BASIC METABOLIC PANEL Routine 05/02/2020 9:08 Re sults for this AM [facility] procedure are i n the results section. CBC HEMOGRAM Routine 05/01/2020 5:20 Results for this AM [facility] procedure are i n the results section. THYROID STIMULATING Routine 05/01/2020 4:00 Resu lts for this HORMONE AM [facility] procedure are i n the results section. HEPATIC FUNCTION PANEL Routine 05/01/2020 4:00 R esults for this AM [facility] procedure are i n the results section. ESTIMATED GFR Routine 05/01/2020 4:00 Results fo r this AM [facility] procedure are i n the results section. BASIC METABOLIC PANEL Routine 05/01/2020 4:00 Re sults for this AM [facility] procedure are i n the results section. US DUPLEX VENOUS UPPER STAT 04/30/2020 5:36 R esults for this EXTREMITY BILATERAL PM [facility] procedur e are in the results section. XR CHEST 2 VW Routine 04/30/2020 4:18 Results fo r this PM [facility] procedure are i n the results section. MIDLINE INSERTION Routine 04/30/2020 11:14 Result s for this ATTEMPT - UNSUCCESSFUL AM [facility] proce dure are in the results section. XR ABDOMEN 1 VW STAT 04/30/2020 9:45 Results for this PORTABLE AM [facility] procedure are i n the results section. ECG 12-LEAD STAT 04/30/2020 9:06 Results for this AM [facility] procedure are i n the results section. DC AN ELECTIVE Routine 04/28/2020 2:57 Results f or this ENDOTRACHEAL AIRWAY PM [facility] procedur e are in the results section. POC GLUCOSE Routine 04/28/2020 9:01 Results for this AM [facility] procedure are i n the results section. SURGICAL PATHOLOGY Routine 04/28/2020 8:27 Resul ts for this REQUEST AM [facility] procedure are i n the results section. TYPE AND SCREEN Routine 04/28/2020 2:11 Results for this AM [facility] procedure are i n the results section. ESTIMATED GFR Routine 04/28/2020 2:11 Results fo r this AM [facility] procedure are i n the results section. PARTIAL THROMBOPLASTIN Routine 04/28/2020 2:11 R esults for this TIME (PTT) AM [facility] procedure are i n the results section. PROTHROMBIN TIME WITH Routine 04/28/2020 2:11 Re sults for this INR AM [facility] procedure are i n the results section. PHOSPHORUS LEVEL Routine 04/28/2020 2:11 Results for this AM [facility] procedure are i n the results section. MAGNESIUM LEVEL Routine 04/28/2020 2:11 Results for this AM [facility] procedure are i n the results section. HC COMPLETE BLD COUNT Routine 04/28/2020 2:11 Re sults for this W/AUTO DIFF AM [facility] procedure are i n the results section. BASIC METABOLIC PANEL Routine 04/28/2020 2:11 Re sults for this AM [facility] procedure are i n the results section. POC GLUCOSE Routine 04/27/2020 11:38 Results for this PM [facility] procedure are i n the results section. POC GLUCOSE Routine 04/27/2020 8:14 Results for this PM [facility] procedure are i n the results section. TTE COMPLETE, WO Routine 04/27/2020 3:00 Results for this CONTRAST, W DOPPLER PM [facility] procedur e are in ([id number]) the results section. POC GLUCOSE Routine 04/27/2020 12:30 Results for this PM [facility] procedure are i n the results section. ESTIMATED GFR Routine 04/27/2020 6:34 Results fo r this AM [facility] procedure are i n the results section. BASIC METABOLIC PANEL Routine 04/27/2020 6:34 Re sults for this AM [facility] procedure are i n the results section. POC GLUCOSE Routine 04/26/2020 9:18 Results for this PM [facility] procedure are i n the results section. ECG 12-LEAD Routine 04/26/2020 8:24 Results for this PM [facility] procedure are i n the results section. COVID-19 QUALITATIVE Routine 04/26/2020 3:44 Res ults for this PCR PM [facility] procedure are i n the results section. MISCELLANEOUS REFERRAL Routine 04/26/2020 3:05 R esults for this TEST AM [facility] procedure are i n the results section. ESTIMATED GFR Routine 04/26/2020 3:05 Results fo r this AM [facility] procedure are i n the results section. CD 4 SUBSET Routine 04/26/2020 3:05 Results for this AM [facility] procedure are i n the results section. PHOSPHORUS LEVEL Routine 04/26/2020 3:05 Results for this AM [facility] procedure are i n the results section. MAGNESIUM LEVEL Routine 04/26/2020 3:05 Results for this AM [facility] procedure are i n the results section. BASIC METABOLIC PANEL Routine 04/26/2020 3:05 Re sults for this AM [facility] procedure are i n the results section. HC COMPLETE BLD COUNT Routine 04/26/2020 3:05 Re sults for this W/AUTO DIFF AM [facility] procedure are i n the results section. POTASSIUM LEVEL Routine 04/25/2020 9:04 Results for this PM [facility] procedure are i n the results section. ESTIMATED GFR STAT 04/25/2020 6:51 Results fo r this PM [facility] procedure are i n the results section. PHOSPHORUS LEVEL STAT 04/25/2020 6:51 Results for this PM [facility] procedure are i n the results section. MAGNESIUM LEVEL STAT 04/25/2020 6:51 Results for this PM [facility] procedure are i n the results section. BASIC METABOLIC PANEL STAT 04/25/2020 6:51 Re sults for this PM [facility] procedure are i n the results section. HC COMPLETE BLD COUNT STAT 04/25/2020 6:51 Re sults for this W/AUTO DIFF PM [facility] procedure are i n the results section. FL ESOPHAGRAM DOUBLE Routine 04/25/2020 11:31 Dysphagia, Res ults for this CONTRAST AM [facility] unspecified type procedure are in Hiatal hernia the results section. CT CHEST WO CONTRAST STAT 04/21/2020 8:15 Res ults for this ABDOMEN WO CONTRAST AM [facility] procedur e are in PELVIS WO CONTRAST the resul ts section. ESTIMATED GFR STAT 04/21/2020 7:22 Results fo r this AM [facility] procedure are i n the results section. LACTIC ACID LEVEL, STAT 04/21/2020 7:22 Resul ts for this SEPSIS - NOW AND REPEAT AM [facility] proc edure are in 2X EVERY 3 HOURS the results section. LIPASE LEVEL STAT 04/21/2020 7:22 Results for this AM [facility] procedure are i n the results section. COMPREHENSIVE METABOLIC STAT 04/21/2020 7:22 Results for this PANEL AM [facility] procedure are i n the results section. HC COMPLETE BLD COUNT STAT 04/21/2020 7:22 Re sults for this W/AUTO DIFF AM [facility] procedure are i n the results section. after 05/26/2019 Results Miscellaneous Lab Result (05/07/2020) Specimen Blood Narrative Performed At This result has an attachment that is no t available. Estimated GFR (05/02/2020 9:08 AM [facility])Only the most recent of7 resultswithin the time period is included. [facility] Estimated GFR 52 (A) mL/min/1.73 [facility] Comment: m2 HOSPITAL Catergory Units Interpretation [...] Organization Address City/State/ZIP Code Phon e Number [facility] DEPARTMENT OF PATHOLOGY AND [address], [place] [address] GENOMIC [address] [address] CBC with platelet and differential (05/02/2020 9:08 AM [facility]OT)Only the most recent of5 resultswithin the time period is included. Pathologist [facility] WBC 6.33 4.50 - 11.00 [facility] k/uL HOSPITAL RBC 4.23 4.20 - 5.50 [facility] m/uL HOSPITAL HGB 10.3 (L) 12.0 - 16.0 [facility] g/dL [facility] HCT 36.3 (L) 37.0 - 47.0 % [facility] MCV 85.8 82.0 - 100.0 [facility] MCH 24.3 (L) 27.0 - 34.0 pg [facility] MCHC 28.4 (L) 31.0 - 37.0 [facility] g/dL [facility] RDW - SD 52.8 37.0 - 55.0 fL [facility] MPV 9.8 8.8 - 13.2 fL [facility] Platelet count 249 150 - 400 k/uL [facility] Nucleated RBC 0.50 /100 WBC [facility] Neutrophils 71.1 (H) 39.0 - 69.0 % [facility] Lymphocytes 14.8 (L) 25.0 - 45.0 % [facility] Monocytes 9.8 0.0 - 10.0 % [facility] Eosinophils 3.0 0.0 - 5.0 % [facility] Basophils 0.5 0.0 - 1.0 % [facility] Immature granulocytes 0.8Comment: 0.0 - 1.0 % [facility] "[facility] granulocytes" (promyelocytes , myelocytes, metamyelocytes ) Specimen Plasma Performing Organization Address City/[facility] Phon e Number [facility] DEPARTMENT OF PATHOLOGY AND [address] [place] [address] [phone] [address] Magnesium level (05/02/2020 9:08 AM [facility])Only the most recent of4 resultswithin the time period is included. Pathologist Sig nature Magnesium 1.9 1.6 - 2.4 mg/dL [facility] L Specimen Plasma Performing Organization Address City/[facility] Phon e Number [facility] DEPARTMENT OF PATHOLOGY AND [address] [place] [address] [phone] [address] Basic metabolic panel (05/02/2020 9:08 AM [facility])Only the most recent of6 results within the time period is included. [facility] Sodium 138 135 - 148 mEq/L [facility] Potassium 3.6 3.5 - 5.0 mEq/L [facility] Chloride 99 98 - 112 mEq/L [facility] CO2 26 24 - 31 mEq/L [facility] Anion gap 13@ANIO 7 - 15 mEq/L [facility] BUN 17 8 - 23 mg/dL [facility] Creatinine 1.11 (H) 0.50 - 0.90 mg/dL [facility] Glucose 128 (H) 65 - 99 mg/dL [facility] Calcium 8.9 8.8 - 10.2 mg/dL [facility] Specimen Plasma Performing Organization Address City/[facility] Phon e Number [facility] DEPARTMENT OF PATHOLOGY AND [address] [place], [place] [address] [address] [address] CBC hemogram (05/01/2020 5:20 AM [facility]) Pathologist Sig nature WBC 5.66 4.50 - 11.00 k/uL [facility] RBC 4.04 (L) 4.20 - 5.50 m/uL [facility] HGB 10.1 (L) 12.0 - 16.0 g/dL [facility] HCT 35.5 (L) 37.0 - 47.0 % [facility] MCV 87.9 82.0 - 100.0 fL [facility] MCH 25.0 (L) 27.0 - 34.0 pg [facility] MCHC 28.5 (L) 31.0 - 37.0 g/dL [facility] RDW - SD 55.4 (H) 37.0 - 55.0 fL [facility] MPV 10.1 8.8 - 13.2 fL [facility] Platelet count 190 150 - 400 k/uL [facility] Nucleated RBC 0.00 /100 WBC [facility] Specimen Plasma Performing Organization Address City/[facility] Phon e Number [facility] DEPARTMENT OF PATHOLOGY AND [address] [place] [address] [phone] [address] Thyroid stimulating hormone (05/01/2020 4:00 AM [facility]) [facility] nature TSH 3.83 0.27 - 4.20 uIU/mL [facility] ITAL Specimen Plasma Performing Organization Address [facility] Phon e Number [facility] DEPARTMENT OF PATHOLOGY AND [address] [place] [address] Hepatic function panel (05/01/2020 4:00 AM [facility]) Albumin 2.8 (L) 3.5 - 5.0 [facility] g/dL [facility] Total bilirubin 0.5 0.0 - 1.2 [facility] mg/dL [facility] Bilirubin direct <0.2 0.0 - 0.3 [facility] mg/dL [facility] Alkaline phosphatase 72 35 - 104 U/L [facility] Protein 6.3 6.3 - 8.3 [facility] Comment: g/dL [facility] [place] 4.6-7.0 g/dL 1 week 4.4-7.6 g/dL 7 months-1year 5.1-7.3 g/dL 1-2 years 5.6-7.5 g/dL >3 years 6.0-8.0 g/dL 18-150 6.3-8.3 g/dL ALT 70 (H) 5 - 50 U/L [facility] AST 59 (H) 10 - 35 U/L [facility] Specimen Plasma Performing Organization Address City/[facility] Phon e Number [facility] DEPARTMENT OF PATHOLOGY AND [address] [place] [address] Us duplex venous upper extremity (04/30/2020 5:36 PM [facility]) Specimen Narrative Performed At [facility] Upper Extr emity Venous Report [address] [place] [address] Pat.Name: MARJAN FLEMING Pat.ID: [id number] .Date: 04/30/2020 Refer.MD: ELISEO ARCE MD Exam Time: 5:04:00 PM Study Type:U E Venous Age: 10 1955,65Y Sex: FEMALE Sonogrphr: Dwayne Macias, IBIS, SANKET Pat. Stat.:Inpati ent Room: [facility] WT20 2020 Tape Vol: JM, CPT - 4: 53495 Echo Jerica nt ID:[id number] Order ID: [id number] Reason for Study:Arm swelling or pain, D [...] *Preliminary result reported to ASHLEY Santos @ 0504 on 04/30/20. PHYSICIAN INTERPRETATION Venous examination of the both upper ext remities and neck demonstrated no evidence of deep venous thrombosis. Total superficial vein thrombosis of th e right basilic vein. FINDINGS: Signed 04/30/2020 10:57 PM Francis Cabral MD, RPVI Procedure Note Interface, Radiology Results In - 2019 10:58 PM [facility] Vascular Ultrasound Laboratory Upper Extremity Veno us Report [id number] [address] , [place] [address] Pat.Name: MAC MARJANMaria Elena Merrill D: [id number] .Date: 04/30/2020 Refer .MD: ELISEO ARCE MD Exam Time: 5:04:00 PM Study Type:UE Venous Age: 10 1955,65Y Sex: FEMALE Sonogrphr: Dwayne Macias, IBIS, SANKET Pat. Stat.:Inpatient Room: [place] [address] 2020 Tape Vol: JM, CPT - 4: 21562 Echo Event ID:[id number] Order ID: [id number] Reason for Study:Arm swelling or pain, D [...] *Preliminary result reported to ASHLEY Santos @ 0140 on 04/30/20. PHYSICIAN INTERPRETATION Venous examination of the both upper ext remities and neck demonstrated no evidence of deep venous thrombosis. Total superficial vein thrombosis of th e right basilic vein. FINDINGS: Signed 04/30/2020 10:57 PM Francis Cabral MD, RPVI Performing Organization Address [facility]/ZIP Code Phon e Number [facility] [address] [place] [address] XR Chest 2 Vw (04/30/2020 4:18 PM [facility]) Specimen Narrative Performed At EXAMINATION: XR CHEST [...] disease of the chest. [id number] Procedure Note Hm Interface, Radiology Results Incoming - 04/30/2020 4:24 PM [facility] EXAMINATION: XR CHEST 2 VW CLINICAL HISTORY: [...] of the chest. [id number] Performing Organization Address [facility] Code Phon e Number [facility] [address] [place] [address] Midline Unsuccessful Attempt (04/30/2020 11:14 AM [facility]OT) Narrative Performed At Nicole Dailey RN 04/30/2020 11 :25 AM Midline Unsuccessful Attempt Date/Time: 04/30/2020 11:14 AM Performed by: Nicole Dailey RN Authorized by: Eliseo Arce MD Consent: Consent obtained: Verbal Consent given by: Patient Risks discussed: arterial puncture, i ncorrect placement, bleeding, infection, superficial thrombus, deep ve in thrombus and nerve damage Alternatives discussed: Alternative treatment [place] protocol: Procedure explained and questions ans wered to patient or proxy's satisfaction: yes Relevant documents present and verifi ed: yes Test results available and properly l abeled: yes Imaging studies available: yes Required blood products, implants, de vices, and special equipment available: yes Site/side marked: yes Immediately prior to procedure, a wilmer e out was called: yes Patient identity confirmed: [...] I asked ASHLEY Valdivia to access the vein, she w as able to access the brachial vein without pain but dilator is unable to advance com pletely . Procedure aborted and ASHLEY Valdivia able to place a PIV g.20 in lo wer arm . XR Abdomen 1 Vw Portable (04/30/2020 9:45 AM TOWING P[facility]OT) Specimen Narrative Performed At EXAMINATION: XR ABDOMEN 1 VW PORTABLE [facility] CLINICAL HISTORY: Abdominal pain pos t op COMPARISON: No prior IMPRESSION: 1.Residual barium within the colon throughout. No smal l bowel obstruction noted. [facility]-[id number] Procedure Note Hm Interface, Radiology Results Incoming - 04/30/2020 10:23 AM [facility] EXAMINATION: XR ABDOMEN 1 VW PORTABLE CLINICAL HISTORY: Abdominal pain post op COMPARISON: No prior IMPRESSION: 1.Residual barium within the colon throu ghout. No small bowel obstruction noted. [facility]-[id number] Performing Organization Address City/State/ZIP Code Phon e Number [facility] [address] [place] [address] ECG 12 lead (04/30/2020 9:06 AM T[facility]ING P[facility]OT)Only the most recent of2 resultswithin the time period is included. Pathologist Sig nature Ventricular rate 135 [facility] Atrial rate 159 [facility] QRSD interval 82 [facility] QT interval 344 [facility] QTC interval 516 [facility] M[facility] QRS axis 1 -6 [facility] T wave axis 167 [facility] EKG impression Atrial fibrillation with rap id ventricular response-Voltage criteria for left ventricular hypertrophy-ST & T wave abnormality, consider lateral ischemia-Abnormal ECG-In automated comparison with ECG [facility] MUSE of 26-APR-2020 20:24,-Vent. rate has increased BY 5 0 BPM-ST now depressed in Late ral leads-Nonspecific T wave abnormality now evident in Inferior leads-Inverted T waves have replaced nonspecific T wave abnormality in Lateral leads- Specimen Narrative Performed At This result has an attachment that is no t available. Performing Organization Address City/State/[facility] Code Phon e Number [facility] MUSE [address] [place] [address] Airway (04/28/2020 2:57 PM TOWING PILOT) Narrative Performed At Carlee Malloy MD 04/28/2020 2 :59 PM Airway Performed by: Carlee Malloy MD Authorized by: Carlee Malloy MD Location: OR Urgency: Elective Difficult Airway: No Anesthesiologist: Carlee Malloy MD Resident/COMPENSATION COORDINATOR/AA: Allan Morocho DO Performed by: resident/COMPENSATION COORDINATOR/AA Preoxygenated with 100% O2: Yes C-spine Precautions [...] Approach: 1 POC glucose (04/28/2020 9:01 AM TOWING PILOT)Only the most recent of5 resultswithin the time period is included. Pathologist Sig nature POC glucose 117 (H) 65 - 99 mg/dL [facility] Comment: HOSPITAL Privacy Attorney Name: Zenon Clemente Device ID: [id number] Chartable: [facility] Notified RN Specimen Blood Performing Organization Address City/State/[facility] Phon e Number [facility] DEPARTMENT OF PATHOLOGY AND [address] [place] [address] [phone] [address] Surgical pathology request (04/28/2020 8:27 AM TOWING PILOT) [facility] DEPARTMENT OF PATHOLOGY AND GENOMIC MEDICINE Surgical pathology See link below [facility] DEPARTMENT OF report for PDF Lab PATHOLOGY AND Report GENOMIC MEDICINE Result status This is Final [facility] DEPARTMENT OF Report for PATHOLOGY AND [id number] GENOMIC MEDICINE Specimen Performing Organization Address [facility] Phon e Number [facility] DEPARTMENT OF PATHOLOGY AND [address] [place] [phone] [facility] Partial thromboplastin time, activated (04/28/2020 2:11 AM TOWING PILOT) Pathologist [place] PTT 28.3 23.0 - 36.0 [facility] Comment: [facility] PTT therapeutic range for unfractionated heparin is 61.0-112.0 seconds which corresponds to Anti-Xa 0.3-0.7 U/ml. Specimen Blood Performing Organization Address City/[facility] Phon e Number [facility] DEPARTMENT OF PATHOLOGY AND [address] [place] [address] [phone] [address] Prothrombin time with INR (04/28/2020 2:11 AM TOWING PILOT) Pathologist [place] Prothrombin time 13.6 11.5 - 14.5 [facility] INR 1.0 JAY Comment: [facility] International Normalized Ratio (INR) is a [facility] HOSPITAL monitoring tool for patients who are stable on oral anticoagulant therapy. An INR of 2.0-3.0 is suggested for deep vein thrombosis/pulmonary embolism. Specimen Blood Performing Organization Address City/[facility] Phon e Number [facility] DEPARTMENT OF PATHOLOGY AND [address] [place] [address] [phone] [address] Type and screen (04/28/2020 2:11 AM TOWING PILOT) Pathologist Sig nature ABO grouping A [facility] Rh type POS [facility] Antibody screen (gel) NEG [facility] Specimen Plasma Performing Organization Address City/[facility] Phon e Number [facility] DEPARTMENT OF PATHOLOGY AND [address] [place] [address] Phosphorus level (04/28/2020 2:11 AM TOWING PILOT)Only the most recent of3 resultswithin the time period is included. Pathologist Sig nature Phosphorus 3.2 2.4 - 4.5 mg/dL [facility] L Specimen Plasma Performing Organization Address City/State/ZIP Code Phon e Number [facility] DEPARTMENT OF PATHOLOGY AND [address] [place] [address] 0 [place] [address] Transthoracic Echocardiogram Complete, (w Contrast, Strain and 3D if needed) (04/27/2020 3:00 PM TOWING PILOT) Specimen Narrative Performed At [facility] Echo cardiography Report [address] [place] [address] Pat.Name: MARJAN FLEMING Pat.ID: [id number] St.Date: 04/27/2020 Refer.MD: ELISEO ARCE MD Exam Time: 2:21:00 PM Study Type:R outine Echo Height: 64in Weight: 213lb BSA: 2.01 m2 Ag e: 1955,65Y Sex: FEMALE BP: 128/89 HR: 102 bpm Sonogrp hr: SANKET Perkins Pat. Stat.:Inpatient Room: [facility] Study Status:Final Echo Event ID:[id number] Order ID: [id number] Reason for Study:Atrial Fibrillation History / Clinical:Hypertension [...] PA systolic pressure. MEASUREMENTS: 2D Parasternal [place] Ao An 2.2 cm LVPWd 1 cm [...] Radiology Results In - 2019 6:21 PM TOWING PILOT Echocardiography Report [id number] [address] Pat.Name: MARJAN FLEMINGI D: [id number] .Date: 04/27/2020 Refer .MD: ELISEO ARCE MD Exam Time: 2:21:00 PM Study Type:Routine Echo Height: 64in Weigh t: 213lb BSA: 2.01 m2 Age: 10 1955,65Y Sex: FEMALE BP: 128/89 HR: 102 bpm Sonog rphr: [facility] Pat. Stat.:Inpatient Room: [facility] Study Status:Final Echo Event ID:[id number] Order ID: [id number] Reason for Study:Atrial Fibrillation History / Clinical:Hypertension [...] PA systolic pressure. MEASUREMENTS: 2D Parasternal [place] Ao An 2.2 cm LVPW d 1 [...] PM Sandra Martin MD Performing Organization Address City/[facility] [address] [place] [address] COVID-19 qualitative PCR (04/26/2020 3:44 PM TOWING PILOT) Interpretation Negative results do not prec lude 2019-nCoV infection and should not be used as the sole basis for treatment or other patient management decisions. Negative results must be combined with clinical observations, patient history, and epidemiological JAY information. [facility] COVID-19 qualitative Not-Detected Not-Detecte JAY PCR result d [facility] See link below for JAY PCR PDF Lab WORSHIP ReportComment: Case HOSPITAL Number: [id number] Specimen Nasal swab Performing Organization Address [facility] Phon e Number [facility] DEPARTMENT OF PATHOLOGY AND [address] [place], [place] [address] GENOMIC MEDICINE [facility] [address] [place] [address] [facility] Miscellaneous referral test (04/26/2020 3:05 AM TOWING PILOT) Misc test name HIV-1 RNA QUAL PCR SHOWN ABOVE Misc test result see note SHOWN ABOVE Comment: Human Immunodeficiency Virus 1 (HIV-1) by Qualitative Press Room Supervisor-Mediated Amplification (TMA) [facility] test code 1662020 HIV-1 by Qualitative TMA See Note SOURCE/SPECIMEN [...] alitative Assay (Gen-Probe). ===== Test performed by: [facility] [address] [place] [id number] Specimen Narrative Performed At [facility] - HIV-1 RNA, Qualitative TMA (FROZ EN) [facility] DEPARTMENT OF PATHOLOGY AND GENOMIC [facility] Test Code: 1650038 MEDICINE Source: plasma Performing Organization Address City/[facility] Phon e Number [facility] DEPARTMENT OF PATHOLOGY AND [address] [place] [address] 0 GENOMIC MEDICINE SHOWN ABOVE CD 4 subset (04/26/2020 3:05 AM TOWING PILOT) CD4% 47 37 - 57 % [facility] CD4 absolute count 426 (L) 488 - 1,340 ul [facility] CD4 subset See link below [facility] for PDF Lab HOSPITAL ReportComment: Specimen Blood Performing Organization Address City/[facility] Phon e Number [facility] DEPARTMENT OF PATHOLOGY AND [address] [place] [phone] GENOMIC MEDICINE [address] [address] [facility] Potassium level (04/25/2020 9:04 PM TOWING PILOT) Pathologist Sig nature Potassium 3.3 (L) 3.5 - 5.0 mEq/L [facility] L Specimen Plasma Performing Organization Address City/[facility] Code Phon e Number [facility] DEPARTMENT OF PATHOLOGY AND [address] [place], [place] [address] GENOMIC MEDICINE [facility] [address] [place] [address] [place] Esophagram Double Contrast (04/25/2020 11:31 AM TOWING PILOT) Specimen Narrative Performed At EXAMINATION: [place] ESOPHAGRAM [...] Radiology Results Incoming - 04/25/2020 12:10 PM TOWING PILOT EXAMINATION: [place] ESOPHAGRAM DOUBLE CONTRAST CLINICAL HISTORY: R13.10 Dysphagia uns pecified, K44.9 Diaphragmatic hernia without obstruction or gangrene, Dysphagia unexplained, dysphagia hiatal hernia COMPARISON: Limited comparison with [facility] st CT from April 21, 2020 [...] spontaneous gastroesophageal reflux. [id number] Performing Organization Address City/State/ZIP Code Phon e Number [facility] [address] [place] [address] CT Chest Wo Contrast Abdomen Wo Contrast Pelvis Wo Contrast (04/21/2020 8:15 AM TOWING PILOT) Specimen Narrative Performed At EXAMINATION: CT CHEST [...] and incidental find ings as detailed above. [id number] Dictated and approved by vice president of contracts/fellow: Werner Valenzuela M.D. I, Medhat Flowers Jr., M.D., personally reviewed the cindi ges and resident's/fellow's findings and agree with the final report. Procedure Note [facility], Radiology Results Incoming - 04/21/2020 9:27 AM TOWING PILOT EXAMINATION: CT CHEST WO CONTRAST ABDOMEN WO [...] and incidental find ings as detailed above. [facility]-[id number] Dictated and approved by radiology resid ent/fellow: Jenna Valenzuela M.D. I, Medhat Flowers Jr., M.D., personally re viewed the images and resident's/fellow's findings and agree with the final report. Performing Organization Address [facility] Phon e Number [address] [address] Lactic acid level, SEPSIS - Now and repeat 2x every 3 hours (04/21/2020 7:22 AM TOWING PILOT) Pathologist Sig nature Lactic acid 1.2 0.5 - 2.2 mmol/L [facility] [place] Specimen Plasma Performing Organization Address [facility] Phon e Number [facility] DEPARTMENT OF PATHOLOGY AND [address] [place] [address] [phone] [address] Lipase level (04/21/2020 7:22 AM TOWING PILOT) Pathologist Sig nature Lipase 22 13 - 60 U/L [facility] Specimen Plasma Performing Organization Address [facility] Phon e Number [facility] DEPARTMENT OF PATHOLOGY AND [address] [place] [address] [phone] [address] Comprehensive metabolic panel (04/21/2020 7:22 AM TOWING PILOT) Sodium 143 135 - 148 [facility] mEq/L [facility] Potassium 3.8 3.5 - 5.0 [facility] mEq/L [facility] Chloride 107 98 - 112 [facility] mEq/L HOSPITAL CO2 26 24 - 31 mEq/L [facility] Anion gap 10@ANIO 7 - 15 mEq/L [facility] BUN 18 8 - 23 mg/dL [facility] Creatinine 1.09 (H) 0.50 - 0.90 [facility] mg/dL HOSPITAL Glucose 126 (H) 65 - 99 mg/dL [facility] Calcium 9.0 8.8 - 10.2 [facility] mg/dL [facility]OSPITAL Protein 6.7 6.3 - 8.3 [facility] Comment: g/dL [facility] [place] 4.6-7.0 g/dL 1 week 4.4-7.6 g/dL 7 months-1year 5.1-7.3 g/dL 1-2 years 5.6-7.5 g/dL >3 years 6.0-8.0 g/dL 18-150 6.3-8.3 g/dL Albumin 2.9 (L) 3.5 - 5.0 [facility] g/dL [facility] A/G ratio 0.8 0.7 - 3.8 [facility] Alkaline phosphatase 57 35 - 104 U/L [facility] AST 17 10 - 35 U/L [facility] ALT 13 5 - 50 U/L [facility] Total bilirubin 0.3 0.0 - 1.2 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
--- OUTSIDE RECORDS SUMMARY | 2020-05-26 02:50 | XMS REPORT | Continuity of Care Document ---
:1955 Author Organization [facility] t Address [address] [place] [address] Care Team Providers Name Role Phone Asked, [...] Effective Date Expiration Date Sour ce Number [facility] MEDICARE(WELLMED) [id number] 2019 Kilo ston [facility] DUAL 00:00:00 Mandaeism [id number]/2019-PresentHMO [facility] MEDICAIDUNITEDHC [id number] 2019 [place] COMM STAR+ 00:00:00 Mandaeism [id number] 2019- PresentHMO Problems Condition Condition Condition Status Onset Resolution Last Treating Co mments Source Name Details Category Date Date Treatment Clinician Date Food Food Disease Active 2019-05 [place] intoleranc intoleranc 2-04 Me thodi e in adult e in adult 00:00: st 00 S/p S/p Disease Active [place] reverse reverse 10-19 [facility] 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:00: 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 Unstable Unstable Disease Active [place] reverse reverse 08-20 [facility] total total [...] to drug Butorpha Propensi Active Hallucinatio 2019-05 [place] nol ty to ns 2-04 [facility] adverse 00:00: st reaction 00 s to drug Metoclop Propensi Active Andreato n ramide ty to 504 [facility] Hcl adverse 00:00: st reaction 00 s to drug Family History Family Member Diagnosis Comments Start Date Stop Date Source Natural father Hypertension [place] Mandaeism Natural father Kidney disease [place] Mandaeism Social History Social Habit Start Date Stop Date Quantity Comments Source History of tobacco Current smoker Juan Luis parker Mandaeism use Sex Assigned At [facility] stanislawodi Cigarettes smoked 2020-04-30 2020-04-30 [place] Mandaeism current (pack per 00:00:00 00:00:00 day) - Reported Tobacco use and 2020-04-30 2020-04-30 Never used [facility] ethodist exposure 00:00:00 00:00:00 Alcohol intake 2020-04-30 2020-04-30 Current drinker [place] on Mandaeism 00:00:00 00:00:00 of alcohol (finding) Alcohol Comment 2016-09-23 2016-09-23 rare [place] ethodist 00:00:00 00:00:00 Smoking Status Start Date Stop Date Source Former smoker 2020-04-30 00:00:00 2020-04-30 00:00:00 [place] Mandaeism Medications Ordered Filled Start Stop Current Ordering [...] tablet 13:39: every st 23 morning. busPIRone 2020 Yes 20mg QD Take 20 mg Ho [...] No acute pain 1{tbl} Q6H Take 1 [place] en-codeine 07-04 tablet by Met loredo (TYLENOL [...] methocarbam 2019-05- No 1000mg Q.25D Take 2 [place] oL 07-04 tablets Methodi (ROBAXIN) 00:00: 23:59 (1,[address] 500 [...] ) 37.5-25 mg per tablet ARIPiprazol 2019-05 5mg Take 5 mg Meza e (ABILIFY) 06-26 by mouth. Me thodi 5 MG tablet 20:00: 00:00 st 12 :00 DESCOVY 2016-0 Yes 1{tbl} QD Take 1 [place] 200-25 mg 3-20 tablet by Metho di tablet 00:00: mouth st 00 daily. ISENTRESS 2017-0 Yes 400mg Q.5D Take 400 [place] 400 mg 3-18 mg by Methodi tablet 00:00: mouth 2 st 00 (two) times a day. Vital Signs Vital Name Observation Time Observation Value Comments Source Systolic blood 2020-05-03 11:32:51 139 mm[Hg] Andreato n Mandaeism pressure Diastolic blood 2020-05-03 11:32:51 85 mm[Hg] [place] Mandaeism pressure Heart rate 2020-05-03 11:32:51 102 /min Derrick Jean Body temperature 2020-05-03 11:32:51 36.11 Amina [place] Mandaeism Respiratory rate 2020-05-03 11:32:51 17 /min [place] Mandaeism Oxygen saturation in 2020-05-03 11:32:51 93 /min Derrick Jean Arterial blood by Pulse oximetry Body weight 2020-05-03 04:40:00 100.744 kg Derrick Jean BMI 2020-05-03 04:40:00 38.12 kg/m2 Derrick Jean Body height 2020-04-25 11:51:00 162.6 cm Derrick Jean Procedures Procedure Date / Time Performing Clinician Source Performed [id number] 2020-05-07 00:00:00 ProviderRochelle BASIC METABOLIC PANEL 2020-05-02 09:08:00 Pau Ott HC COMPLETE BLD COUNT 2020-05-02 09:08:00 Pau Ott W/AUTO DIFF MAGNESIUM LEVEL 2020-05-02 09:08:00 Pau Ott ESTIMATED GFR 2020-05-02 09:08:00 Eliseo Arce CBC HEMOGRAM 2020-05-01 05:20:00 Idalmis Montilla Met jose BASIC METABOLIC PANEL 2020-05-01 04:00:00 Idalmis Montilla on Mandaeism ESTIMATED GFR 2020-05-01 04:00:00 Idalmis Montilla [place] HEPATIC FUNCTION PANEL 2020-05-01 04:00:00 Idalmis Montilla Mandaeism THYROID STIMULATING 2020-05-01 04:00:00 Idalmis Montilla HORMONE US DUPLEX VENOUS UPPER 2020-04-30 17:36:00 Ching Patel EXTREMITY BILATERAL XR CHEST 2 VW 2020-04-30 16:18:36 Pau Ott MIDLINE INSERTION ATTEMPT 2020-04-30 11:14:34 Nicole Dailey - UNSUCCESSFUL XR ABDOMEN 1 VW PORTABLE 2020-04-30 09:45:00 Gracie Narayan ECG 12-LEAD 2020-04-30 09:06:58 Pau Ott CA AN ELECTIVE 2020-04-28 14:57:57 Carlee Malloy Met [place] ENDOTRACHEAL AIRWAY POC GLUCOSE 2020-04-28 09:01:00 Eliseo Arce SURGICAL PATHOLOGY REQUEST 2020-04-28 08:27:00 Eliseo Arce BASIC METABOLIC PANEL 2020-04-28 02:11:00 Luis Gonzalez HC COMPLETE BLD COUNT 2020-04-28 02:11:00 Luis Gonzalez W/AUTO DIFF MAGNESIUM LEVEL 2020-04-28 02:11:00 Luis Gonzalez Mandaeism PHOSPHORUS LEVEL 2020-04-28 02:11:00 Luis Gonzalez on Mandaeism PROTHROMBIN TIME WITH INR 2020-04-28 02:11:00 Grabiel Gonzalez PARTIAL THROMBOPLASTIN 2020-04-28 02:11:00 Luis Gonzalez TIME (PTT) ESTIMATED GFR 2020-04-28 02:11:00 Eliseo Arce Meth odist TYPE AND SCREEN 2020-04-28 02:11:00 Eliseo Arce Meth odist POC GLUCOSE 2020-04-27 23:38:00 Eliseo Arce Meth odist POC GLUCOSE 2020-04-27 20:14:00 Eliseo Arce Meth odist TTE COMPLETE, WO CONTRAST, 2020-04-27 15:00:00 Nieves Hyde W DOPPLER ([id number]) POC GLUCOSE 2020-04-27 12:30:00 Eliseo Arce Meth odist BASIC METABOLIC PANEL 2020-04-27 06:34:00 Eliseo Arce Mandaeism ESTIMATED GFR 2020-04-27 06:34:00 Eliseo Arce Meth odist POC GLUCOSE 2020-04-26 21:18:00 Eliseo Arce Meth odist ECG 12-LEAD 2020-04-26 20:24:31 Nieves Hyde hodnadege COVID-19 QUALITATIVE PCR 2020-04-26 15:44:00 Rosa Maria Gonzalez HC COMPLETE BLD COUNT 2020-04-26 03:05:00 Luis Gonzalez W/AUTO DIFF BASIC METABOLIC PANEL 2020-04-26 03:05:00 Luis Gonzalez MAGNESIUM LEVEL 2020-04-26 03:05:00 Luis Gonzalez Mandaeism PHOSPHORUS LEVEL 2020-04-26 03:05:00 Luis Gonzalez Mandaeism CD 4 SUBSET 2020-04-26 03:05:00 Eliseo Arce Meth odist ESTIMATED GFR 2020-04-26 03:05:00 JeredimasEliseo monk Meza Meth odist MISCELLANEOUS REFERRAL 2020-04-26 03:05:00 Yazmin Eliseo Story on Mandaeism TEST POTASSIUM LEVEL 2020-04-25 21:04:00 Eliseo Arce Meth odist HC COMPLETE BLD COUNT 2020-04-25 18:51:00 Luis Gonzalezist W/AUTO DIFF BASIC METABOLIC PANEL 2020-04-25 18:51:00 Luis Gonzalez Mandaeism MAGNESIUM LEVEL 2020-04-25 18:51:00 Luis Gonzalezto n Mandaeism PHOSPHORUS LEVEL 2020-04-25 18:51:00 Luis Gonzalez on Mandaeism ESTIMATED GFR 2020-04-25 18:51:00 JeredimasEliseo monk Meza Meth odist [place] ESOPHAGRAM DOUBLE 2020-04-25 11:31:21 [...] Source Future Scheduled 2019-12-22 INFLUENZA VACCINE Rashida soares Mandaeism Test 00:00:00 [code = INFLUENZA VACCINE] Future Scheduled 2006-01-22 BREAST CANCER Meza Me thodist Test 00:00:00 SCREENING [code = BREAST CANCER SCREENING] Future Scheduled 2006-01-22 COLONOSCOPY SCREENING Juan Luis parker Mandaeism Test 00:00:00 [code = COLONOSCOPY SCREENING] Future Scheduled 2006-01-22 SHINGLES VACCINES Andreato n Mandaeism Test 00:00:00 (#1) [code = SHINGLES VACCINES (#1)] Future Scheduled 1977-01-22 Screening for [place] Me thodist Test 00:00:00 malignant neoplasm of cervix (procedure) [code = 077305649] Future Scheduled 1972 COVID-19 VACCINE (#1) [place] Mandaeism Test 00:00:00 [code = COVID-19 VACCINE (#1)] Future Scheduled 1966-01-22 DIABETES: RETINAL EYE [place] Mandaeism Test 00:00:00 EXAM [code = DIABETES: RETINAL EYE EXAM] Future Scheduled 1966-01-22 DIABETIC FOOT EXAM [place] Mandaeism Test 00:00:00 [code = DIABETIC FOOT EXAM] Encounters Start End Encounter Admission Attending Care Care Encounter Source Date/Time Date/Time Type Type Clinicians Facility Department ID 2020-04-25 2020-05-03 Inpatient [facility] [id number] 617 [place] 00:00:00 00:00:00 RAY [address] 2020-04-25 2020-04-25 [facility] [id number] [place] 00:00:00 00:00:00 RAY [address] 2020-04-25 2020-04-25 [facility] [id number] 3884 [place] 00:00:00 00:00:00 RAY [address] 2020-04-21 2020-04-21 Emergency TU, YEN-TE [facility] [id number] [place] 00:00:00 00:00:[address] Results Test Description Test Time Test Comments Results Result Comments Source Miscellaneous referral test 2020-05-09 15:24:58 Test Item Value Reference Range Interpretation Comme nts [facility] test name (test HIV-1 RNA QUAL PCR code = 2566) [facility] test result (test see note Human Immunodeficiency Virus 1 code = 1730) (HIV-1) by Qual itative Public Health Aides Teacher-M ediated Amplification ( TMA) [facility] test code 9724305 H IV-1 by Qualitative TMA See Note [...] HIV-RNA Qualita tive Assay (Gen-Probe). Test performed by:[facility] [employer] [place] [address] KYLE (test code = KYLE) HIVQL - HIV-1 RNA, Qualitative TMA (FROZEN)[facility] Test Code: 1532059Pupcvl: plasma [place] MethodistBasic metabolic rakhh8327-89-86 11:45:54 Test Item Value Reference Range Interpretation Comments Sodium (test code = 2951-2) 138 135- 148 mEq/L Potassium (test code = 2823-3) 3.6 3.5- 5.0 mEq/L Chloride (test code = 2075-0) 99 98- 112 mEq/L CO2 (test code = 2028-9) 26 24- 31 mEq/L Anion gap (test code = 74605-6) 13@ANIO 7- 15 mEq/L BUN (test code = 3094-0) 17 mg/dL 8-23 Creatinine (test code = 2160-0) 1.11 mg/dL 0.5-0.9 H Glucose (test code = 2345-7) 128 mg/dL 65-99 H Calcium (test code = 44987-7) 8.9 mg/dL 8.8-10.2 Lab Interpretation (test code = Abnormal 71771-1) [place] MethodistMagnesium [id number] 11:45:54 Test Item Value Reference Range Interpretation Comments Magnesium (test code = 11915-7) 1.9 mg/dL 1.6-2.4 [place] MethodistEstimated [id number] 11:45:54 Test Item Value Reference Range Interpretation Comments Estimated GFR (test 52 mL/min/1.73 m2 Maria Elena grubbs Units code = 5488) InterpretationG 1 >=90 [place] l or highG2 60-89 Mildly decrease dG3a 45-59 Mil dly to moderately decr sskadM4q 30-44 Moderately to s everely decreasedG4 15-29 Severe ly decreasedG5 <15 Kidney ramsey lureThe eGFR was calcul ated using the [facility] Kidney Disease Epidemiology Collaboration ( CKD-EPI) equation. Interpretation is based on recommendati ons of the National [facility]-Kidn ey Disease Outcome s Quality Initiat bruno (NKF-KDOQI) pub lished in 2013. Lab Interpretation Abnormal (test code = 69105-9) Meza MethodistCBC with platelet and lhrhgiukfsrc5322-43-22 11:11:36 Test Item Value Reference Range Interpretation Comments WBC (test code = 89821-8) 6.33 4.50- 11.00 k/uL RBC (test code = 30017-2) 4.23 m/uL 4.2-5.5 HGB (test code = 718-7) 10.3 g/dL 12-16 L HCT (test code = 4544-3) 36.3 % 37-47 L MCV (test code = 787-2) 85.8 fL 82-100 MCH (test code = 785-6) 24.3 pg 27-34 L MCHC (test code = 786-4) 28.4 g/dL 31-37 L RDW - SD (test code = 52.8 fL 37-55 16679-3) MPV (test code = 59240-3) 9.8 fL 8.8-13.2 Platelet count (test code 249 150- 400 k/uL = 92973-9) Nucleated RBC (test code 0.50 /100 WBC = 32614-7) Neutrophils (test code = 71.1 % 39-69 H 66789-1) Lymphocytes (test code = 14.8 % 25-45 L 28143-2) Monocytes (test code = 9.8 % 0-10 48824-3) Eosinophils (test code = 3.0 % 0-5 65197-2) Basophils (test code = 0.5 % 0-1 54583-7) Immature granulocytes 0.8 % 0-1 "Immat ure (test code = 46414-8) granul ocytes" (promyelocytes, myelocytes, metamyelocytes) Lab Interpretation (test Abnormal code = 64998-4) Meza MethodistThyroid stimulating winlyga1518-00-34 07:24:57 Test Item Value Reference Range Interpretation Comments TSH (test code = 3016-3) 3.83 0.27- 4.20 uIU/mL [facility] CampusHepatic function imphv1440-60-20 07:18:42 Test Item Value Reference Range Interpretation Comments Albumin (test code = 2.8 g/dL 3.5-5 L 1751-7) Total bilirubin (test 0.5 mg/dL 0-1.2 code = 1974-2) Bilirubin direct (test <0.2 0-0.3 code = 1967-7) Alkaline phosphatase 72 U/L 35-104 (test code = 6768-6) Protein (test code = 6.3 g/dL 6.3-8.3 -[place] n 2885-2) 4.6-7.0 g /dL1 week 4.4-7.6 g/dL 7 months-1year 5.1-7.3 g/dL 1-2 years 5.6-7.5 g/dL>3 years 6.0-8.0 g/fR31-233 6.3-8. 3 g/dL ALT (test code = 1742-6) 70 U/L 5-50 H AST (test code = 1920-8) 59 U/L 10-35 H Lab Interpretation (test Abnormal code = 13468-2) [facility] seirlpcl0457-90-08 06:45:47 Test Item Value Reference Range Interpretation Comments WBC (test code = 90393-6) 5.66 4.50- 11.00 k/uL RBC (test code = 67688-7) 4.04 m/uL 4.2-5.5 L HGB (test code = 718-7) 10.1 g/dL 12-16 L HCT (test code = 4544-3) 35.5 % 37-47 L MCV (test code = 787-2) 87.9 fL 82-100 MCH (test code = 785-6) 25.0 pg 27-34 L MCHC (test code = 786-4) 28.5 g/dL 31-37 L RDW - SD (test code = 02021-7) 55.4 fL 37-55 H MPV (test code = 05952-8) 10.1 fL 8.8-13.2 Platelet count (test code = 190 150- 400 k/uL 73010-7) Nucleated RBC (test code = 0.00 /100 WBC 39711-7) Lab Interpretation (test code = Abnormal 17964-1) [facility] duplex venous upper ffhfwkwmo7065-93-23 22:57:00Interface, Radiology Results In - 04/30/2020 10:58 PM [facility] Vascular Ultrasound Laboratory Upper Extremity Venous Pjnhfq1471 [address] [address] Pat.Name: LIO WATTS Pat.ID: [id number] .Date: 04/30/2020 Refer.MD: ELISEO ARCE MD Exam Time: 5:04:00 PM Study Type:UE Venous Age: 9 1955,65Y Sex: FEMALE Sonogrphr: IBIS Espinosa, SANKET Pat. Stat.:Inpatient Room: [place] [address] 2020 Tape Vol: EDGAR, CPT - 4: 06304 Echo Event ID:[id number] Order ID: [id number] Reason for Study:Arm swelling or pain, DVT [...] distal upper arm due to dressing and bandage.CA ELIMINARY FINDINGS1. Total superficial vein thrombosis of the right basilic vein.2. No evidence of deep vein thrombosis of the visualized veins.*Preliminary result reported to ASHLEY Santos @ 9689 on 04/30/20.PHYSICIAN INTERPRETATION Venous examination of the both upper extremities and neck demonstratednoevidence of deep venous thrombosis. Total superficial vein thrombosis of the right basilic vein.---- FINDINGS: Sig vida 04/30/2020 10:57PMFrancis Cabral MD, VIGrace City MethodistXR Chest 2 Vw 2020-04-30 16:21:01Hm Interface, Radiology Results 04/30/2020 4:24 PM CSTEXAMINATION: XR CHEST 2 CLINICAL HISTORY: amio gttCOMPARISON: None.FINDINGS:Two views of the chest demonstrate mild cardiomegaly. Pulmonary vasculature is within normal limits.No consolidation or pleural effusion is seen. There is no evidence of pneumothorax. Low lung volume is noted.Bilateral shoulders arthroplasty changes are noted.IMPRESSION:No radiographic evidence of acute cardiopulmonary process or active disease of the chest.1D2RAD_PS01[place] MethodistSurgical pathology sgqovto8836-87-71 14:07:52 Test Item Value Reference Range Interpretation Comments Case number (test code = [id number]) Surgical pathology See link below for report (test code = PDF Lab Report 2255) Result status (test code This is Final Report = [id number]) for [id number] [place] MethodistECG 12 qqpx7250-77-07 12:40:32 Test Item Value Reference Range Interpretation [...] nonspecific T wave abnormality in Lateral leads- Meza MethodistMidline Unsuccessful Pohxgsd2250-93-79 11:14:34ANicole zhang RN 04/30/2020 11:25 AMMidame Unsuccessful Attempt Date/Time: 04/30/2020 11:14 AMPerformed by: Nicole Dailey, RNAuthorized by: Eliseo Arce MD Consent: [...] a PIV g.20 in lower arm .Derrick JeanXR Abdomen 1 Vw Uralcqqk1287-33-79 10:20:14 Interface, Radiology Results Incoming - 04/30/2020 10:23 AM CSTEXAMINATION: XR ABDOMEN 1 PORTABLECLINICAL HISTORY: Abdominal pain post opCOMPARISON: No priorIMPRESSION:1.Residual barium within the colon throughout. No small bowel obstruction noted.[facility]-[id number] DkjizwqqeCepknk8653-86-50 14:57:57Carlee Malloy MD 04/28/2020 2:59 PMAirwayPerformed by: Carlee Malloy MDAuthorized by: Carlee Malloy MD Location: ORUrgency: ElectiveDifficult Airway: No Anesthesiologist: Kvng Malloy, FLORENTINesident/ORNAMENTAL IRON WORKER HELPER/AA: Allan Morocho DOPerformed by: resident/ORNAMENTAL IRON WORKER HELPER/AAPreoxygenated ojhy552% O2: Yes C- spine Precautions Maintained Throughout: [...] RSI: No Number of Attempts at Approach: 1H[facility]erton MethodistCD 4 cinhdd8052-73-27 10:47:52 Test Item Value Reference Range Interpretation Comments CD4% (test code = 47 % 37-57 8123-2) CD4 absolute count 426 ul 488-1340 L (test code = 30667-9) CD4 subset (test code See link below Case Number: = 1011) for PDF Lab [id number] Report Lab Interpretation Abnormal (test code = 76103-5) Derrick [facility] lebttop9248-00-91 09:03:42 Test Item Value Reference Range Interpretation Comments POC glucose (test code 117 mg/dL 65-99 H Opera tor Name: Yarbrough = 29658-9) JunellDevice ID : [id number] able: [facility] Notified deburring and 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 operator Interpretation Abnormal (test code = 32834-5) [place] MethodistType and dtikvr4138-16-00 03:57:00 Test Item Value Reference Range Interpretation Comments ABO grouping (test code = 883-9) A Rh type (test code = 70419-3) POS Antibody screen (gel) (test code = NEG 890-4) [place] MethodistPhosphorus [id number] 03:27:52 Test Item Value Reference Range Interpretation Comments Phosphorus (test code = 2777-1) 3.2 mg/dL 2.4-4.5 [place] MethodistPartial thromboplastin time, ysdvcycey2228-25-90 03:22:15 Test Item Value Reference Range Interpretation Comments PTT (test code = 28.3 23.0- 36.0 [place] [address]-4) unfractionated heparin is61.0-112.0 se conds which corresponds to Anti-Xa0.3-0.7 U/ml. [place] MethodistProthrombin time with YKV6267-00-09 03:21:36 Test Item Value Reference Range Interpretation Comments Prothrombin time (test 13.6 11.5- 14.5 sec code = 5902-2) INR (test code = 1.0 The Interna tional 91610-7) Normalized Rati o (INR) is a therapeutic m onitoring tool for patien ts who are stable on oral anticoagulant t herapy. An INR of 2.0-3.0 is suggested for d eep vein thrombosis/pulm onary embolism. [facility] CenteristTransthoracic Echocardiogram Complete, (w Contrast, Strain and 3D if needed)2020-04-27 18:20:00Interface, Radiology Results In - 04/27/2020 6:21 PM [facility] Echocardiography Report [address] [address] Pat.Name: LIO WATTS Pat.ID: [id number].Date: 04/27/2020 Refer.MD: ELISEO ARCE MD Exam Time: 2:21:00 PM Study Type:Routine Echo Height: 64in Weight: 213lb BSA: 2.01 m2 Age: 9 1955,65Y Sex: FEMALE BP: 128/89 HR: 102 bpm Sonogrphr: SANKET [place] Pat. Stat.:Inpatient Room: [facility] Study Status:Final Echo Event ID:[id number] Order ID: [id number] Reason for Study:Atrial FibrillationHistory / Clinical:Hypertension Procedures: [...] estimate PA systolic pressure. MEASUREMENTS: 2DParasternal [place] Ao An 2.2 cm LVPWd 1 cm [...] l/m/m2 Signed 04/27/2020 06:20 PMBobby ContrerasCOVID-19 qualitative [id number] 21:42:22 Test Item Value Reference Range Interpretation Comments Interpretation (test Negative results do code = 0966202) not preclude 2019-nCoV infection and should not be used as the sole basis for treatment or other patient management decisions. Negative results must be combined with clinical observations, patient history, and epidemiological information. COVID-19 qualitative Not-Detected Not-Detected PCR result (test code = 20471-9) COVID-19 qualitative See link below for C ase Number: PCR (test code = PDF Lab Report [id number]) [facility] MandaeismDignity Health [facility] Medical Centerassium [id number] 21:28:10 Test Item Value Reference Range Interpretation Comments Potassium (test code = 2823-3) 3.3 3.5- 5.0 mEq/L L Lab Interpretation (test code = Abnormal 12101-3) Meza MandaeismCO Esophagram Double Kedtcuwm3655-41-05 12:07:12 Interface, Radiology Results - 04/25/2020 12:10 PM CSTEXAMINATION: [place] ESOPHAGRAM [...] Wo Contrast Abdomen Wo Contrast Pelvis Wo Duothdar0079-67-73 09:23:55Hm Interface, Radiology Results 04/21/2020 9:27 AM [...] aorta.4.Additional chronic and incidental findings as detailed above.[facility]-[id number] and approved by residential instructor/fellow: Jenna Valenzulea M.D.I, Medhat Flowers Jr., M.D., personally reviewed the images and resident's/fellow's findings and agree with the final report.[facility] CampusComprehensive metabolic fwmsm9115-09-13 08:09:22 Test Item Value Reference Range Interpretation Comments Sodium (test code = 143 135- 148 mEq/L 2951-2) Potassium (test code = 3.8 3.5- 5.0 mEq/L 2823-3) Chloride (test code = 107 98- 112 mEq/L 2075-0) CO2 (test code = 8-9) 26 24- 31 mEq/L Anion gap (test code = 10@ANIO 7- 15 mEq/L 49393-1) BUN (test code = 3094-0) 18 mg/dL 8-23 Creatinine (test code = 1.09 mg/dL 0.5-0.9 H 2160-0) Glucose (test code = 126 mg/dL 65-99 H 2345-7) Calcium (test code = 9.0 mg/dL 8.8-10.2 31404-0) Protein (test code = 6.7 g/dL 6.3-8.3 -[place] n 2885-2) 4.6-7.0 g/dL1 week 4.4-7 .6 g/dL7 months-1y ear 5.1-7 .3 g/dL1-2 years 5.6-7 .5 g/dL>3 years 6.0-8 .0 g/pR87-850 6.3-8 .3 g/dL Albumin (test code = 2.9 g/dL 3.5-5 L 1751-7) A/G ratio (test code = 0.8 0.7-3.8 1759-0) Alkaline phosphatase 57 U/L 35-104 (test code = 6768-6) AST (test code = 1920-8) 17 U/L 10-35 ALT (test code = 1742-6) 13 U/L 5-50 Total bilirubin (test 0.3 mg/dL 0-1.2 code = 1975-2) Lab Interpretation (test Abnormal code = 43713-4) Derrick MethodistLipase rwnja2759-07-11 08:09:22 Test Item Value Reference Range Interpretation Comments Lipase (test code = 3040-3) 22 U/L 13-60 Meza MethodistLactic acid level, SEPSIS - Now and repeat 2x every 3 hours 2020-04-21 08:09:20 Test Item Value Reference Range Interpretation Comments Lactic acid (test code = 14039-2) 1.2 mmol/L 0.5-2.2 Derrick MethodistCHLAMYDIA, GC, TV,PCR, IN [id number] 15:38:00 Test Item Value Reference Range Interpretation Comments FT (test code = CHTR) Not detected (qualifier Not Detected N value) FT (test code = Not detected (qualifier Not Detected N NGONO) value) FT (test code = TRVG) Not detected (qualifier Not Detected N value) URINALYSIS WITH [id number] 10:57:00 Test Item Value Reference Range Interpretation Comments Color (test code = UCOLR) Dk. Yellow Clarity (test code = UCLAR) Hazy Glucose (test code = UGLUC) NEGATIVE NEGATIVE N Bilirubin (test code = UBILI) NEGATIVE NEGATIVE N Ketones (test code = UKET) NEGATIVE NEGATIVE N Specific [place] (test code = 1.025 1.005-1.030 A [...]
[2020-05-26] MEDS ORDERED: NA CHLORIDE 0.9% 1,000 ML ONE (04:29)
[2020-05-26] MEDS ORDERED: ONDANSETRON 4 MG/2 ML VIAL ONE ×2 (04:29→05:50)
[2020-05-26 06:06] LABS: Albumin 3.9 g/dL (3.4-5.0); Bilirubin Direct 0.2 mg/dL (0-0.2); Bilirubin Total 0.6 mg/dL (0.2-1.0); Potassium 3.8 mmol/L (3.5-5.1); Protein, Total 8.7 g/dL (6.4-8.2)
[2020-05-26 06:13] LABS: Absolute Lymphocytes (CBC) 0.7 K/uL (0.7-4.9); Basophils % 0.6 % (0-1.3); Hematocrit 41.1 % (36.0-45.0); Lymphocytes % 7.5 % (15.3-44.8); MPV 7.6 fL (7.6-11.3); RBC Red Blood Cell Count 5.41 M/uL (3.86-4.86)
[2020-05-26] MEDS ORDERED: PROMETHAZINE INJ 25 MG/ML AMP ONE ×2 (06:37→09:32)
--- NOTE | 2020-05-26 08:20 | RAD REPORT ---
EXAM DESCRIPTION: CTAbdomen Pelvis W Contrast - 05/26/2020 6:47 am CLINICAL HISTORY: Abdominal pain. ABD PAIN COMPARISON: Abdomen Pelvis W Contrast dated 04/19/2020; Abdomen Pelvis W Contrast dated 04/16/20 20; Abdomen Pelvis W Contrast dated 01/28/2020; Abdomen Pelvis W Contrast dated 08/06/2019 TECHNIQUE: Biphasic CT imaging of the abdomen and pelvis was performed with 100 ml non-ionic IV cont rast. All CT scans are performed using dose optimization technique as appropriate and may include automated exposure control or mA/KV adjustment according to patient size. FINDINGS: The lung bases are clear.Postsurgical changes related to hiatal hernia repair. Cholecystec lisandra. The liver, spleen, pancreas, adrenal glands are within normal limits. Benign cysts are present in bot h kidneys without evidence of solid mass or hydronephrosis. No bowel obstruction, free air, free fluid or abscess. Mild stool is present in the rectosigmoid colo n. Appendectomy. No evidence of significant lymphadenopathy. Mild lumbosacral degenerative changes. IMPRESSION: No acute intra-abdominal or pelvic finding.
--- NOTE | 2020-05-26 08:27 | ER ---
Nurse's Notes [facility] Name: Marjan Fleming Age: 65 yrs Sex: Female : 1955 Arrival Date: 05/26/2020 Time: 02:48 Bed 20 Private MD: Diagnosis: Vomiting;Nausea Presentation: 05/26 03:04 Chief complaint: Patient states: Vomiting and diarrhea without improvement since ER lp1 visit here last night; Reports no emesis, but continued nausea. Coronavirus screen: Client denies travel out of the [place] in the last 14 days. The client reports previous COVID testing was negative. Date of collection: May 25, 2020. Ebola Screen: No symptoms or risks identified at this time. Initial Sepsis Screen: Does the patient meet any 2 criteria? No. Patient's initial sepsis screen is negative. Does the patient have a suspected source of infection? No. Patient's initial sepsis screen is negative. Risk Assessment: Do you want to hurt yourself or someone else? Patient reports no desire to harm self or others. Onset of symptoms was May 25, 2020. 03:04 Method Of Arrival: Wheelchair lp1 03:04 Acuity: BLAYNE 3 lp1 Historical: - Allergies: 03:09 Bactrim DS; lp1 03:09 Fentanyl; lp1 03:09 Stadol; lp1 03:09 TRIMETHOPRIM; lp1 03:09 sulfamethoxazole (bulk); lp1 03:09 metoclopramide HCl; lp1 03:09 butorphanol tartrate; lp1 - Home Meds: 03:09 BuSpar Oral [Active]; Descovy Oral [Active]; Hydralazine Oral [Active]; lisinopril Oral lp1 [Active]; Metformin Oral [Active]; Metoprolol Tartrate Oral [Active]; Norvasc Oral [Active]; raltegravir Oral [Active]; sertraline Oral [Active]; - PMHx: 03:09 Anxiety; Atrial Fib; Bipolar disorder; Chronic pain; COPD; esophageal varices; lp1 Hepatitis; HIV; Hypertension; Migraines; Panic Attacks; - PSHx: 03:09 Hernia repair; lp1 - Immunization history:: Adult Immunizations up to date. - Social history:: Smoking status: Patient denies any tobacco usage or history of. Screenin:52 Abuse screen: Denies threats or abuse. Denies injuries from another. Nutritional lp1 screening: No deficits noted. Tuberculosis screening: No symptoms or risk factors identified. Fall Risk None identified. Assessment: 03:30 General: Appears in no apparent distress. Behavior is anxious. Pain: Denies pain. lp1 Neuro: Level of Consciousness is awake, alert, obeys commands, Oriented to person, place, time, situation. Cardiovascular: Patient's skin is warm and dry. Respiratory: Airway is patent Respiratory effort is even, Breath sounds are clear bilaterally. GI: Abdomen is obese, Reports diarrhea, nausea, vomiting. : No signs and/or symptoms were reported regarding the genitourinary system. EENT: No signs and/or symptoms were reported regarding the EENT system. Derm: Skin is healthy with good turgor, Skin is dry, Skin is normal. Musculoskeletal: No deficits noted. 05:00 Reassessment: Patient reports nausea at this time. lp1 06:15 Reassessment: Patient reports slight improvement in nausea; appears comfortable at this lp1 time. 07:45 Reassessment: Patient is alert, oriented x 3, equal unlabored respirations, skin aa5 warm/dry/pink. Pt sitting up in bed, awaiting CT scan results. . 08:55 Reassessment: Patient is alert, oriented x 3, equal unlabored respirations, skin aa5 warm/dry/pink. Pt c/o nausea and requesting medication. was notified. . 09:15 Reassessment: Pt drank grape juice and tolerated well, pt denies any vomiting. . aa5 10:01 Reassessment: Patient appears in no apparent distress at this time. Patient is alert, ca1 oriented x 3, equal unlabored respirations, skin warm/dry/pink. 10:50 Reassessment: Patient appears in no apparent distress at this time. Patient is alert, ca1 oriented x 3, equal unlabored respirations, skin warm/dry/pink. Vital Signs: 03:04 BP 158 / 84; Pulse 85; Resp 20; Temp 99.2(O); Pulse Ox 95% on R/A; Weight 97.52 kg (R); lp1 Height 5 ft. 4 in. (162.56 cm); 05:00 BP 99 / 83; Pulse 93; Resp 19; Pulse Ox 95% on R/A; lp1 07:00 BP 139 / 71; Pulse 83; Resp 20; Pulse Ox 95% on R/A; lp1 10:01 BP 102 / 65; Pulse 110; Resp 18 S; Pulse Ox 95% on R/A; ca1 03:04 Body Mass Index 36.90 (97.52 kg, 162.56 cm) lp1 ED Course: 02:48 Patient arrived in ED. ag3 03:06 Marcos Lema MD is Attending Physician. tw4 03:07 Triage completed. lp1 03:07 Arm band placed on right wrist. lp1 03:51 Ora Portillo, RN is Primary Nurse. lp1 03:51 Missed attempt(s): 22 gauge in left antecubital area. Missed attempt(s): 22 gauge in lp1 right forearm. 03:52 Patient has correct armband on for positive identification. Placed in gown. Bed in low lp1 position. Call light in reach. 04:05 Missed attempt(s): 22 gauge in left forearm. Bleeding controlled, band aid applied, ds4 catheter tip intact. 04:10 Inserted saline lock: 24 gauge in left wrist, using aseptic technique. Blood collected. ds4 05:30 24g IV to L wrist DC'd; pain on infusion per patient. lp1 05:42 Inserted saline lock: 20 gauge in right wrist, using aseptic technique. rr5 06:47 CT Abd/Pelvis - IV Contrast Only In Process Unspecified. EDMS 07:24 Attending Physician role handed off by Marcos Lema MD thomas 07:24 Justus Kolb MD is Attending Physician. thomas 08:04 Primary Nurse role handed off by Ora Portillo RN bd 08:26 Rachele Vincent MD is Referral Physician. thomas 08:38 EKG done, by ED staff, reviewed by Justus Kolb MD. em1 09:01 Lindsay Scuhlz, RN is Primary Nurse. aa5 10:52 No provider procedures requiring assistance completed. IV discontinued, intact, ca1 bleeding controlled, No redness/swelling at site. Pressure dressing applied. Administered Medications: 04:20 Drug: NS 0.9% 1000 ml Route: IV; Rate: 1 bolus; Site: left hand; lp1 06:00 Follow up: IV Status: Completed infusion; IV Intake: 1000ml lp1 04:20 Drug: Zofran (Ondansetron) 4 mg Route: IVP; Site: left hand; lp1 05:30 Follow up: Response: No change in condition lp1 05:41 Drug: Zofran (Ondansetron) 4 mg Route: IVP; Site: right wrist; rr5 06:30 Follow up: Response: No change in condition lp1 06:31 Drug: Phenergan 12.5 mg Route: IVP; Site: right antecubital; jb4 07:15 Follow up: Response: Nausea is decreased lp1 09:15 Drug: Phenergan 12.5 mg Route: IVP; Site: right wrist; aa5 Intake: 06:00 IV: 1000ml; Total: 1000ml. lp1 Outcome: 08:27 Discharge ordered by . thomas 10:52 Discharged to home ambulatory. ca1 10:52 Condition: stable 10:52 Discharge instructions given to patient, Instructed on discharge instructions, follow up and referral plans. no drinking with medication, no driving heavy equipment, medication usage, Demonstrated understanding of instructions, follow-up care, medications, Prescriptions given X 2. 10:53 Patient left the ED. ca1 Signatures: Dispatcher [employer] EDMS Heydi Caldera Corey, MD MD cha Martinez, Eric em1 Lindsay Schulz, RN RN aa5 Ora Portillo RN RN lp1 Leonardo Cunningham ds4 Mode Bhatt RN RN jb4 Marcos Lema MD MD tw4 Ev Fields agGoldy Prater RN RN rr5 Lucrecia Gallardo RN RN ca1
--- NOTE | 2020-05-26 08:27 | EDPHYS ---
Physician Documentation [facility] Name: Marjan Fleming Age: 65 yrs Sex: Female : 1955 Arrival Date: 05/26/2020 Time: 02:48 Bed 20 Private MD: SHEELA Physician Justus Kolb HPI: 05/26 06:36 This 65 yrs old Female presents to ER via Wheelchair with complaints of tw4 Vomiting/Diarrhea. 06:36 The patient presents to the emergency department with nausea, vomiting, diarrhea. tw4 Onset: The symptoms/episode began/occurred today. Possible causes: unknown. The symptoms are aggravated by nothing. The symptoms are alleviated by nothing. The patient has not experienced similar symptoms in the past. Historical: - Allergies: 03:09 Bactrim DS; lp1 03:09 Fentanyl; lp1 03:09 Stadol; lp1 03:09 TRIMETHOPRIM; lp1 03:09 sulfamethoxazole (bulk); lp1 03:09 metoclopramide HCl; lp1 03:09 butorphanol tartrate; lp1 - Home Meds: 03:09 BuSpar Oral [Active]; Descovy Oral [Active]; Hydralazine Oral [Active]; lisinopril Oral lp1 [Active]; Metformin Oral [Active]; Metoprolol Tartrate Oral [Active]; Norvasc Oral [Active]; raltegravir Oral [Active]; sertraline Oral [Active]; - PMHx: 03:09 Anxiety; Atrial Fib; Bipolar disorder; Chronic pain; COPD; esophageal varices; lp1 Hepatitis; HIV; Hypertension; Migraines; Panic Attacks; - PSHx: 03:09 Hernia repair; lp1 - Immunization history:: Adult Immunizations up to date. - Social history:: Smoking status: Patient denies any tobacco usage or history of. ROS: 06:36 Constitutional: Negative for fever, chills, and weight loss, Eyes: Negative for injury, tw4 pain, redness, and discharge, Cardiovascular: Negative for chest pain, palpitations, and edema, Respiratory: Negative for shortness of breath, cough, wheezing, and pleuritic chest pain, Back: Negative for injury and pain, MS/Extremity: Negative for injury and deformity, Skin: Negative for injury, rash, and discoloration, Neuro: Negative for headache, weakness, numbness, tingling, and seizure. 06:36 Abdomen/GI: Positive for abdominal pain, nausea and vomiting, nausea, vomiting, and diarrhea, nausea, vomiting, diarrhea, Negative for constipation, abdominal cramps, abdominal distension, anorexia, dysphagia, hematemesis, black/tarry stool, rectal pain, rectal bleeding, bowel incontinence, flatulence. Exam: 06:36 Constitutional: This is a well developed, well nourished patient who is awake, alert, tw4 and in no acute distress. Head/Face: Normocephalic, atraumatic. Chest/axilla: Normal chest wall appearance and motion. Nontender with no deformity. No lesions are appreciated. Cardiovascular: Regular rate and rhythm with a normal S1 and S2. No gallops, murmurs, or rubs. Normal PMI, no JVD. No pulse deficits. Respiratory: Lungs have equal breath sounds bilaterally, clear to auscultation and percussion. No rales, rhonchi or wheezes noted. No increased work of breathing, no retractions or nasal flaring. Back: No spinal tenderness. No costovertebral tenderness. Full range of motion. MS/ Extremity: Pulses equal, no cyanosis. Neurovascular intact. Full, normal range of motion. Neuro: Awake and alert, GCS 15, oriented to person, place, time, and situation. Cranial nerves II-XII grossly intact. Motor strength 5/5 in all extremities. Sensory grossly intact. Cerebellar exam normal. Normal gait. Psych: Awake, alert, with orientation to person, place and time. Behavior, mood, and affect are within normal limits. 06:36 Abdomen/GI: Inspection: abdomen appears normal, Bowel sounds: diminished, Palpation: moderate abdominal tenderness, in the epigastric area. 08:44 ECG was reviewed by the Attending Physician. thomas Vital Signs: 03:04 BP 158 / 84; Pulse 85; Resp 20; Temp 99.2(O); Pulse Ox 95% on R/A; Weight 97.52 kg (R); lp1 Height 5 ft. 4 in. (162.56 cm); 05:00 BP 99 / 83; Pulse 93; Resp 19; Pulse Ox 95% on R/A; lp1 07:00 BP 139 / 71; Pulse 83; Resp 20; Pulse Ox 95% on R/A; lp1 10:01 BP 102 / 65; Pulse 110; Resp 18 S; Pulse Ox 95% on R/A; ca1 03:04 Body Mass Index 36.90 (97.52 kg, 162.56 cm) lp1 MDM: 03:34 Patient medically screened. tw4 08:28 Differential diagnosis: Nonspecific abd pain, gastritis, pancreatitis, viral thomas gastroenteritis, gastroenteritis. Data reviewed: vital signs, nurses notes, lab test result(s), radiologic studies, CT scan. Data interpreted: case monitor: rate is 83 beats/min, rhythm is regular, Pulse oximetry: on room air is 95 %. Test interpretation: by ED physician or midlevel provider:. Counseling: I had a detailed discussion with the patient and/or guardian regarding: the historical points, exam findings, and any diagnostic results supporting the discharge/admit diagnosis, lab results, radiology results, the need for outpatient follow up, for definitive care, a card assembler, an resident inspector. 05/26 03:07 Order name: Basic Metabolic Panel; Complete Time: 06:21 tw4 05/26 06:21 Interpretation: Normal except: GLUC 136; GFR 55. tw4 05/26 03:07 Order name: CBC with Diff; Complete Time: 09:37 tw4 05/26 06:21 Interpretation: Normal except: RBC 5.41; HCT 41.1; MCV 76.0; MCH 23.9; MCHC 31.5; LYM% tw4 7.5; ADE% 86.0; RDW 17.4. 05/26 03:07 Order name: Hepatic Function; Complete Time: 06:21 tw4 05/26 06:21 Interpretation: Normal except: TP 8.7; GLOB 4.8; A/G 0.8. tw4 05/26 03:07 Order name: Lipase; Complete Time: 06:21 tw4 05/26 06:22 Interpretation: Within normal limits: LIP 104. tw4 05/26 08:38 Order name: Troponin (emerg Dept Use Only); Complete Time: 09:42 bd 05/26 09:09 Order name: CBC Smear Scan; Complete Time: 09:37 EDMS 05/26 03:07 Order name: IV Saline Lock; Complete Time: 04:18 tw4 05/26 04:36 Order name: CT Abd/Pelvis - IV Contrast Only; Complete Time: 08:29 tw4 05/26 08:29 Order name: EKG; Complete Time: 08:30 thomas 05/26 03:07 Order name: Labs collected and sent; Complete Time: 04:18 tw4 05/26 08:29 Order name: EKG - Nurse/Tech; Complete Time: 08:38 thomas EC:44 Rate is 79 beats/min. Rhythm is regular. QRS [place] is Normal. [place] interval is normal. QRS thomas interval is normal. QT interval is normal. No Q waves. T waves are Normal. No ST changes noted. Clinical impression: Abnormal EKG without significant change and No evidence of ischemia. Interpreted by me. Reviewed by me. Administered Medications: 04:20 Drug: NS 0.9% 1000 ml Route: IV; Rate: 1 bolus; Site: left hand; lp1 06:00 Follow up: IV Status: Completed infusion; IV Intake: 1000ml lp1 04:20 Drug: Zofran (Ondansetron) 4 mg Route: IVP; Site: left hand; lp1 05:30 Follow up: Response: No change in condition lp1 05:41 Drug: Zofran (Ondansetron) 4 mg Route: IVP; Site: right wrist; rr5 06:30 Follow up: Response: No change in condition lp1 06:31 Drug: Phenergan 12.5 mg Route: IVP; Site: right antecubital; jb4 07:15 Follow up: Response: Nausea is decreased lp1 09:15 Drug: Phenergan 12.5 mg Route: IVP; Site: right wrist; aa5 Disposition: 05/26/20 08:27 Discharged to Home. Impression: Vomiting, Nausea. - Condition is Stable. - Discharge Instructions: Nausea and Vomiting, Adult, Nausea, Adult. - Prescriptions for Zofran 4 mg Oral Tablet - take 1 tablet by ORAL route every 12 hours As needed; 20 tablet. Phenergan 25 mg Rectal Suppository - insert 1 suppository by RECTAL route every 6 hours As needed; 12 suppository. - Medication Reconciliation Form, Thank You Letter, Antibiotic Education, Prescription Opioid Use form. - Follow up: Private Physician; When: 2 - 3 days; Reason: Recheck today's complaints, Continuance of care, Re-evaluation by your physician. Follow up: Rachele Vincent MD; When: 2 - 3 days; Reason: Recheck today's complaints, Continuance of care, Re-evaluation by your physician. - Problem is new. - Symptoms have improved. Signatures: Dispatcher [employer] Justus Long MD MD cha Calderon, Audri, RN RN aa5 Ora Portillo, RN RN lp1 Mode Bhatt, RN RN jb4 Marcos Lema MD MD tw4 Goldy Agee, RN RN rr5 Lucrecia Gallardo RN RN ca1 Corrections: (The following items were deleted from the chart) 08:30 08:27 05/26/2020 08:27 Discharged to Home. Impression: Vomiting; Diarrhea, unspecified. thomas Condition is Stable. Forms are Medication Reconciliation Form, Thank You Letter, Antibiotic Education, Prescription Opioid Use. Follow up: Private Physician; When: 2 - 3 days; Reason: Recheck today's complaints, Continuance of care, Re-evaluation by your physician. Follow up: Rebeccazaelbert Vincent; When: 2 - 3 days; Reason: Recheck today's complaints, Continuance of care, Re-evaluation by your physician. Problem is new. Symptoms have improved. thomas 10:53 08:30 05/26/2020 08:27 Discharged to Home. Impression: Vomiting; Nausea. Condition is ca1 Stable. Forms are Medication Reconciliation Form, Thank You Letter, Antibiotic Education, Prescription Opioid Use. Follow up: Private Physician; When: 2 - 3 days; Reason: Recheck today's complaints, Continuance of care, Re-evaluation by your physician. Follow up: Rachele Vincent; When: 2 - 3 days; Reason: Recheck today's complaints, Continuance of care, Re-evaluation by your physician. Problem is new. Symptoms have improved. thomas
[2020-05-26 09:08] LABS: Platelet Estimate ADEQ; White Blood Cell Scan OK (OK)
[2020-05-26 09:09] LABS: Blood Morphology Comment NOT SEEN (NOT SEEN)
[2020-05-26 11:10] VITALS: TEMP 99.2; O2SAT 95
[2020-05-26 11:14] VITALS: BP 102/65
== END 2020-05-26 10:53 | disposition home or self-care (01) ==
LOC: ER 02:46
DX: R11.2 Nausea with vomiting, unspecified (principal); I10 Essential (primary) hypertension; Z21 Asymptomatic human immunodeficiency virus [HIV] infection status; F31.9 Bipolar disorder, unspecified; Z88.1 Allergy status to other antibiotic agents; Z88.2 Allergy status to sulfonamides; Z88.5 Allergy status to narcotic agent; Z88.8 Allergy status to other drugs, medicaments and biological substances
CPT/HCPCS: 93005; 85025; 80048; 36415; 80076; 84484; 83690; 74177; Q9967; J2550 ×2; J7030; J2405 ×2; 99284

== ENCOUNTER 2020-07-13 14:58 | Emergency (ER) | payer OTHER ==
--- OUTSIDE RECORDS SUMMARY | 2020-07-13 15:23 | XMS REPORT | Continuity of Care Document ---
:1955 Author Organization [facility] t Address [address] [place] [address] Care Team Providers Name Role Phone Asked, Pcp Primary Care Physician Unavailable Yazmin JENKINS Attending Clinician Clark SANCHEZ Attending Clinician Unavailable Quinn JENKINS, Y.H. Attending Clinician Maren JENKINS Attending Clinician Luisana Maharaj NP Attending Clinician Michael Pinon MD Attending Clinician Shaheed Catalan Attending Clinician Meli SANCHEZ Attending Clinician Unavailable Mario Tapia MD Attending Clinician Nahum SANCHEZ Attending Clinician Unavailable Curt Mitchell MD Attending Clinician DO SYL Attending Clinician Unavailable YAZMIN Admitting Clinician Unavailable DO SYL Admitting Clinician Unavailable Payers Payer Name Policy Type Policy Effective Date Expiration Date Sour ce Number [facility] [id number] 2019 [place] COMPLETE 00:00:00 Hindu [id number] 2019- PresentHMO [facility] MEDICAIDUNITEDHC [id number] 2019 [place] COMM STAR+ 00:00:00 Hindu [id number] PresentHMO Problems Condition Condition Condition Status Onset Resolution Last Treating Co mments Source Name Details Category Date Date Treatment Clinician Date Food Food Disease Active 2019-05 [place] intoleranc intoleranc 2-04 Me thodi e in adult e in adult 00:00: st 00 S/p S/p Disease Active Meza reverse reverse 10-19 Methodi 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:00: [...] to drug Butorpha Propensi Active Hallucinatio 2019-05 [place] nol ty to ns 2-04 Methodi adverse 00:00: st reaction 00 s to drug Metoclop Propensi Active Andreato n ramide ty to 504 Methodi Hcl adverse 00:00: st reaction 00 s to drug Family History Family Member Diagnosis Comments Start Date Stop Date Source Natural father Hypertension Derrick Eganist Natural father Kidney disease Rashida Jean Social History Social Habit Start Date Stop Date Quantity Comments Source History of tobacco Current smoker Juan Luis parker Hindu use Sex Assigned At [facility] ethodist Exposure to Not sure [place] Meth dist SARS-CoV-2 (event) Cigarettes smoked 2020-06-23 2020-06-23 Derrick Jean current (pack per 00:00:00 00:00:00 day) - Reported Tobacco use and 2020-06-23 2020-06-23 Never used [facility] ethodist exposure 00:00:00 00:00:00 Alcohol intake 2020-06-23 2020-06-23 Current drinker Andreaparish kauffman Hindu 00:00:00 00:00:00 of alcohol (finding) Alcohol Comment 2016-09-23 2016-09-23 rare [facility] ethodist 00:00:00 00:00:00 Smoking Status Start Date Stop Date Source Former smoker 2020-06-23 00:00:00 2020-06-23 00:00:00 Derrick Eganist Medications Ordered Filled Start Stop Current Ordering Indication Dosage Frequency Signature Comments Components Source Medication Medication Date Date Medication? Clinician (SIG) Name Name lisinopril Yes 40mg Q.5D Take 40 mg [place] (PRINIVIL,Z 2-01 by mouth 2 Me thodi ESTRIL) 40 10:27: (two) st mg tablet 19 times a day. metoprolol 0 Yes 100mg Q.5D Take 100 [place] tartrate 2-01 mg by Methodi (LOPRESSOR) 10:27: mouth 2 st 100 mg 19 (two) tablet times a day. amLODIPine Yes 10mg QD Take 10 mg H [place] (NORVASC) 2- by mouth Method i 10 mg 10:27: daily. st tablet 19 LORAZepam Yes 2mg QD Take 2 mg [place] (ATIVAN) 2 2-01 by mouth Metho di MG tablet 10:27: nightly as st 19 needed for anxiety. esomeprazol Yes 40mg Q.5D Take 40 mg Meza e (NexIUM) 2- by mouth 2 Met hodi 40 MG 10:27: (two) st capsule 19 times a day. clobetasol Yes 1{appli Q.5D Apply 1 [place] (TEMOVATE) 2- cation} applicatio Methodi 0.05 % 10:27: n st ointment 19 topically 2 (two) times a day. (affected area in groin) hydrALAZINE 0 Yes 50mg QD Take 50 mg Derrick (APRESOLINE 2-01 by mouth Meth jason ) 50 MG 10:27: nightly. st tablet 19 busPIRone 0 Yes 20mg QD Take 20 mg [place] (BUSPAR) 10 2-01 by mouth Meth jason MG tablet 10:27: every st 19 morning. busPIRone 2020-0 Yes 20mg QD Take 20 mg [place] (BUSPAR) 10 2-01 by mouth Meth jason MG tablet 10:27: nightly. st 19 mirtazapine 0 Yes 15mg QD Take 15 mg Meza (REMERON) 2-01 by mouth Method i 15 MG 10:27: nightly as st tablet 19 needed (insomnia) . LORAZepam Yes 2mg QD Take 2 mg [place] (ATIVAN) 2 2-01 by mouth Metho di MG tablet 10:27: every st 19 morning. acetaminoph Yes 1000mg Q.5D Take 1,000 Meza en 2-01 mg by Methodi (TYLENOL) 10:27: mouth 2 st 500 MG 19 (two) tablet times a day as needed for headaches. albuterol Yes 1{puff} Q4H Inhale 1 [place] sulfate 90 2-01 puff every Met hodi mcg/actuati 10:27: 4 (four) st on aero 19 hours as powdr needed breath act (shortness w/sensor of breath or wheezing). budesonide- Yes 1{puff} QD Inhale 1 Meza formoteroL 2-01 puff every Met hodi (SYMBICORT) 10:27: morning. st 160-4.5 19 mcg/actuati on inhaler montelukast Yes 10mg QD Take 10 mg Meza (SINGULAIR) 2-01 by mouth Meth jason 10 mg 10:27: nightly. st tablet 19 sertraline 2019-05 Yes 200mg QD Take 200 [place] (ZOLOFT) 2-12 mg by Methodi 100 MG 13:39: mouth st tablet 23 daily. apixaban 2019-05- No 5mg Q.5D Take 1 [place] (ELIQUIS) 5 07-04 tablet (5 Me thodi mg tablet 00:00: 23:59 mg total) st 00 :00 by mouth 2 (two) times a day for 30 days. amIODarone 2019-05- No 200mg QD Take 1 [place] (PACERONE) 07-04 tablet Method i 200 MG 00:00: 23:59 ([address] tablet 00 :00 total) by mouth daily for 30 days. pantoprazol 2019-05- No 40mg Q.5D Take 1 [place] e 07-04 tablet (40 Methodi (PROTONIX) 00:00: 23:59 mg total) s t 40 MG EC 00 :00 by mouth 2 tablet (two) times a day for 30 days. simethicone 2019-05 No 80mg Q6H Chew 1 [place] (MYLICON) 07-04 tablet (80 Met facundo 80 MG 00:00: 23:59 mg total) st chewable 00 :00 every 6 tablet (six) hours for 30 days. ipratropium 2019-05 No 3mL Q.25D Take 3 mL [place] -albuteroL 07-04 by [place] (DUO-NEB) 00:00: 23:59 nebulizati s t 0.5-2.5 00 :00 on every 4 mg/3 mL (four) nebulizer hours while awake for 30 days. budesonide 2019-05 No Simple .5mg Q.5D Take 2 mL [place] (PULMICORT) 07-04 chronic (0.5 mg M ethodi 0.5 mg/2 mL 00:00: 23:59 bronchitis total) by st nebulizer 00 :00 (HCC) nebulizati solution on 2 (two) times a day for [address] of symbicort. acetaminoph 2019-05- No acute pain 1{tbl} Q6H Take 1 [place] en-codeine 07-04 tablet by Met loredo (TYLENOL 00:00: 23:[address] WITH 00 :00 every 6 CODEINE #3) (six) 300-30 mg hours as per tablet needed for moderate pain for up to 7 days .acute pain. lidocaine 2019-05 No 1{patch Q24H Place 1 [place] (LIDODERM) 07-04 } patch on Meth jason 5 % 00:00: 23:[address] 00 :00 daily for 7 days. Remove & Discard patch within 12 hours or as directed by methocarbam 2019-05 No 1000mg Q.25D Take 2 [place] oL 07-04 tablets [place] (ROBAXIN) 00:00: 23:59 (1,[address] 500 MG 00 :00 total) by tablet mouth 4 (four) times a day for 7 days. apixaban 2019-05 No 5mg Q.5D Take 1 [place] (ELIQUIS) 5 2-12 12-12 tablet (5 Me thodi mg tablet 00:00: 00:00 mg total) st 00 :00 by mouth 2 (two) times a day. ARIPiprazol 2019-05- No 5mg Take 1 [place] e (ABILIFY) 07-04 1212 tablet (5 Me thodi 5 MG tablet [...] 2 st 00 (two) times a day. Immunizations Ordered Immunization Filled Immunization Date Status Commen ts Source Name Name [employer] COVID-19 MRNA 2020-07-02 Completed [place] VACCINATION 00:00:00 Hindu Vital Signs Vital Name Observation Time Observation Value Comments Source Systolic blood 2020-06-23 10:22:00 137 mm[Hg] Andreato n Hindu pressure Diastolic blood 2020-06-23 10:22:00 82 mm[Hg] Andreat on Hindu pressure Heart rate 2020-06-23 10:22:00 67 /min Derrick Jean Body temperature 2020-06-23 10:22:00 36.11 Amina [place] Hindu Respiratory rate 2020-06-23 10:22:00 17 /min Andrea Jean Body height 2020-06-23 10:22:00 162.6 cm Derrick Jean Body weight 2020-06-23 10:22:00 95.709 kg Derrick Jean BMI 2020-06-23 10:22:00 36.22 kg/m2 Derrick Jean Oxygen saturation in 2020-06-23 10:22:00 99 /min Derrick Jean Arterial blood by Pulse oximetry Procedures Procedure Date / Time Performing Clinician Source Performed [id number] 2020-05-07 00:00:00 Provider, Rochelle Jean BASIC METABOLIC PANEL 2020-05-02 09:08:00 Pau Ott HC COMPLETE BLD COUNT 2020-05-02 09:08:00 Pau Ott W/AUTO DIFF MAGNESIUM LEVEL 2020-05-02 09:08:00 Pau Ott Meth odist ESTIMATED GFR 2020-05-02 09:08:00 Eliseo Arce CBC HEMOGRAM 2020-05-01 05:20:00 Idalmis Montilla Met jose BASIC METABOLIC PANEL 2020-05-01 04:00:00 Idalmis Montilla on Hindu ESTIMATED GFR 2020-05-01 04:00:00 Idalmis Montilla Met jose HEPATIC FUNCTION PANEL 2020-05-01 04:00:00 Idalmis Montilla Hindu THYROID STIMULATING 2020-05-01 04:00:00 Idalmis Montilla HORMONE US DUPLEX VENOUS UPPER 2020-04-30 17:36:00 Ching Patel EXTREMITY BILATERAL XR CHEST 2 VW 2020-04-30 16:18:36 Pau Ott Meth odist MIDLINE INSERTION ATTEMPT 2020-04-30 11:14:34 Nicole Daileyist - UNSUCCESSFUL XR ABDOMEN 1 VW PORTABLE 2020-04-30 09:45:00 Gracie Narayan ECG 12-LEAD 2020-04-30 09:06:58 Pau Ott Meth odist NE AN ELECTIVE 2020-04-28 14:57:57 Carlee Malloy Met hodist ENDOTRACHEAL AIRWAY POC GLUCOSE 2020-04-28 09:01:00 Eliseo Arce Meth odnadege SURGICAL PATHOLOGY REQUEST 2020-04-28 08:27:00 Eliseo Arce Hindu BASIC METABOLIC PANEL 2020-04-28 02:11:00 Luis Gonzalez HC COMPLETE BLD COUNT 2020-04-28 02:11:00 Luis Gonzalez W/AUTO DIFF MAGNESIUM LEVEL 2020-04-28 02:11:00 Luis Gonzalez Hindu PHOSPHORUS LEVEL 2020-04-28 02:11:00 Luis Gonzalez on Hindu PROTHROMBIN TIME WITH INR 2020-04-28 02:11:00 Grabiel Gonzalez PARTIAL THROMBOPLASTIN 2020-04-28 02:11:00 Luis Gonzalez TIME (PTT) ESTIMATED GFR 2020-04-28 02:11:00 Eliseo Arce odnadege TYPE AND SCREEN 2020-04-28 02:11:00 Eliseo Acre odist POC GLUCOSE 2020-04-27 23:38:00 Eliseo Arce Meth odist POC GLUCOSE 2020-04-27 20:14:00 Eliseo Arce Meth odnadege TTE COMPLETE, WO CONTRAST, 2020-04-27 15:00:00 Nieves Hyde W DOPPLER ([id number]) POC GLUCOSE 2020-04-27 12:30:00 Eliseo Arce Meth odist BASIC METABOLIC PANEL 2020-04-27 06:34:00 Eliseo Arce Hindu ESTIMATED GFR 2020-04-27 06:34:00 Eliseo Arce Meth odist POC GLUCOSE 2020-04-26 21:18:00 Eliseo Arce Meth odist ECG 12-LEAD 2020-04-26 20:24:31 Nieves Hyde hodnadege COVID-19 QUALITATIVE PCR 2020-04-26 15:44:00 Rosa Maria Gonzalez HC COMPLETE BLD COUNT 2020-04-26 03:05:00 Luis Gonzalez W/AUTO DIFF BASIC METABOLIC PANEL 2020-04-26 03:05:00 Luis Gonzalez Hindu MAGNESIUM LEVEL 2020-04-26 03:05:00 Luis Gonzalezto n Hindu PHOSPHORUS LEVEL 2020-04-26 03:05:00 Luis Gonzalezt on Hindu CD 4 SUBSET 2020-04-26 03:05:00 Eliseo Arce Meth odist ESTIMATED GFR 2020-04-26 03:05:00 Eliseo Arce Meth odist MISCELLANEOUS REFERRAL 2020-04-26 03:05:00 Eliseo Arce on Hindu TEST POTASSIUM LEVEL 2020-04-25 21:04:00 Eliseo Arce odist HC COMPLETE BLD COUNT 2020-04-25 18:51:00 Luis Gonzalez W/AUTO DIFF BASIC METABOLIC PANEL 2020-04-25 18:51:00 Luis Gonzalez Hindu MAGNESIUM LEVEL 2020-04-25 18:51:00 Luis Gonzalezto n Hindu PHOSPHORUS LEVEL 2020-04-25 18:51:00 Luis Gonzalez on Hindu ESTIMATED GFR 2020-04-25 18:51:00 Eliseo Arce odnadege [place] ESOPHAGRAM DOUBLE 2020-04-25 11:31:21 Eliseo Arce [...] Planned Date Details Comments Source Future Scheduled 2020-07-23 COVID-19 VACCINE (2 [place] Hindu Test 00:00:00 of 2 - Pfizer series) [code = COVID-19 VACCINE (2 of 2 - Pfizer series)] Future Scheduled 2019-12-22 INFLUENZA VACCINE [place] Hindu Test 00:00:00 [code = INFLUENZA VACCINE] Future Scheduled 2006-01-22 BREAST CANCER [facility] thodist Test 00:00:00 SCREENING [code = BREAST CANCER SCREENING] Future Scheduled 2006-01-22 COLONOSCOPY SCREENING [place] Hindu Test 00:00:00 [code = COLONOSCOPY SCREENING] Future Scheduled 2006-01-22 SHINGLES VACCINES [place] Hindu Test 00:00:00 (#1) [code = SHINGLES VACCINES (#1)] Future Scheduled 1977-01-22 Screening for [facility] thodist Test 00:00:00 malignant neoplasm of cervix (procedure) [code = 248510325] Future Scheduled 1966-01-22 DIABETES: RETINAL EYE [place] Hindu Test 00:00:00 EXAM [code = DIABETES: RETINAL EYE EXAM] Future Scheduled 1966-01-22 DIABETIC FOOT EXAM [place] Hindu Test 00:00:00 [code = DIABETIC FOOT EXAM] Encounters Start End Encounter Admission Attending Care Care Encounter Source Date/Time Date/Time Type Type Clinicians Facility Department ID 2020-07-02 2020-07-02 Outpatient [facility] [id number] [place] 00:00:00 00:00:[address] 2020-06-23 2020-06-23 Outpatient [facility] [id number] [place] 00:00:00 00:00:00 RAY 521 Method i 2020-04-25 2020-05-03 Inpatient [facility] [id number] [place] 00:00:00 00:00:00 RAY 470 Method i 2020-04-25 2020-04-25 Outpatient [facility] [id number] [place] 00:00:00 00:00:00 RAY 917 Method i 2020-04-25 2020-04-25 Outpatient [facility] [id number] [place] 00:00:00 00:00:00 RAY 152 Method i 2020-04-21 2020-04-21 Emergency [facility] [id number] [place] 00:00:00 00:00:[address] Results Test Description Test Time Test Comments Results Result Comments Source Miscellaneous referral test 2020-05-09 15:24:58 Test Item Value Reference Range Interpretation Comme nts Misc test name (test HIV-1 RNA QUAL PCR code = 2566) Misc test result (test see note Human Immunodeficiency Virus 1 code = 1730) (HIV-1) by Qual itative Incubator Operator-M ediated Amplification ( TMA) [facility] test code 0185916 H IV-1 by Qualitative TMA See Note [...] HIV-RNA Qualita tive Assay (Gen-Probe). Test performed by:[employer] [place] [address] KYLE (test code = KYLE) HIVQL - HIV-1 RNA, Qualitative TMA (FROZEN)AR Test Code: 8128010Vlnoqe: plasma [place] MethodistBasic metabolic [id number] 11:45:54 Test Item Value Reference Range Interpretation Comments Sodium (test code = 138 See_Comment [Automa arpit message] 0594-2) The system WebPT generated this result transmit arpit reference range : 135 - 148 mEq/L. Th e reference range was not used to interpret this result as normal/abnormal . Potassium (test code = 3.6 See_Comment [Aut omated message] 0035-3) The system WebPT generated this result transmit arpit reference range : 3.5 - 5.0 mEq/L. Th e reference range was not used to interpret this result as normal/abnormal . Chloride (test code = 99 See_Comment [Auto mated message] 6397-0) The system Web[employer] generated this result transmit arpit reference range : 98 - 112 mEq/L. Th e reference range was not used to interpret this result as normal/abnormal . CO2 (test code = 26 See_Comment [Automated message] 2028-01) The system WebPT generated this result transmit arpit reference range : 24 - 31 mEq/L. The reference range was not used to interpret this result as normal/abnormal . Anion gap (test code = 13@JONA See_Comment [Aut omated message] 60853-8) The system WebPT generated this result transmit arpit reference range : 7 - 15 mEq/L. The reference range was not used to interpret this result as normal/abnormal . BUN (test code = 17 mg/dL 8-23 3094-0) Creatinine (test code = 1.11 mg/dL 0.5-0.9 H 2160-0) Glucose (test code = 128 mg/dL 65-99 H 2345-7) Calcium (test code = 8.9 mg/dL 8.8-10.2 86373-5) Lab Interpretation Abnormal (test code = 99309-2) Meza MethodistMagnesium [id number] 11:45:54 Test Item Value Reference Range Interpretation Comments Magnesium (test code = 14387-6) 1.9 mg/dL 1.6-2.4 [place] MethodistEstimated [id number] 11:45:54 Test Item Value Reference Range Interpretation Comments Estimated GFR (test 52 mL/min/1.73 m2 Maria Elena Marciajuliette grubbs Units code = 5488) InterpretationG 1 >=90 Aracely l or highG2 60-89 Mildly decrease dG3a 45-59 Mil dly to moderately decr wmfspV0e 30-44 Moderately to s everely decreasedG4 15-29 Severe ly decreasedG5 <15 Kidney ramsey lureThe eGFR was calcul ated using the Chron ic Kidney Disease Epidemiology Collaboration ( CKD-EPI) equation. Interpretation is based on recommendati ons of the National Ki dney Foundation-Kidn ey Disease Outcome s Quality Initiat bruno (NKF-KDOQI) pub lished in 2013. Lab Interpretation Abnormal (test code = 09211-4) Meza MethodistCBC with platelet and gbufuoyyuexq4285-24-84 11:11:36 Test Item Value Reference Range Interpretation Comments WBC (test code = 6.33 See_Comment [Automated message] 94153-2) The system WebPT generated this result transmit arpit reference range : 4.50 - 11.00 k/ uL. The reference r abbey was not used to interpret this result as normal/abnormal . RBC (test code = 4.23 m/uL 4.2-5.5 48245-1) HGB (test code = 718-7) 10.3 g/dL 12-16 L HCT (test code = 4544-3) 36.3 % 37-47 L MCV (test code = 787-2) 85.8 fL 82-100 MCH (test code = 785-6) 24.3 pg 27-34 L MCHC (test code = 786-4) 28.4 g/dL 31-37 L RDW - SD (test code = 52.8 fL 37-55 76815-9) MPV (test code = 9.8 fL 8.8-13.2 42997-8) Platelet count (test 249 See_Comment [Autom ated message] code = 34901-7) The system [facility] generated this result transmit arpit reference range : 150 - 400 k/uL. The reference range was not used to interpret this result as normal/abnormal . Nucleated RBC (test code 0.50 See_Comment [A utomated message] = 42964-0) The system WebPT generated this result transmit arpit reference range : /100 WBC. The reference range was not used to interpret this result as normal/abnormal . Neutrophils (test code = 71.1 % 39-69 H 30439-9) Lymphocytes (test code = 14.8 % 25-45 L 34251-5) Monocytes (test code = 9.8 % 0-10 79629-7) Eosinophils (test code = 3.0 % 0-5 51108-7) Basophils (test code = 0.5 % 0-1 56656-3) Immature granulocytes 0.8 % 0-1 "Immat ure (test code = 78817-3) granul ocytes" (promyelocytes, myelocytes, metamyelocytes) Lab Interpretation (test Abnormal code = 80047-8) [place] MethodistThyroid stimulating [id number] 07:24:57 Test Item Value Reference Range Interpretation Comments TSH (test code = 3.83 See_Comment [Automated message] The 3016-3) system which ge nerated this result transmit arpit reference range : 0.27 - 4.20 uIU/mL. Th e reference range was not u sed to interpret this result as normal/abnormal . [facility] function ntdww2782-04-98 07:18:42 Test Item Value Reference Range Interpretation Comments Albumin (test code = 2.8 g/dL 3.5-5 L 1751-7) Total bilirubin (test 0.5 mg/dL 0-1.2 code = 1974-) Bilirubin direct (test <0.2 0-0.3 code = 1967-) Alkaline phosphatase 72 U/L 35-104 (test code = 6768-6) Protein (test code = 6.3 g/dL 6.3-8.3 -[place] n 2885-2) 4.6-7.0 g /dL1 week 4.4-7.6 g/dL 7 months-1year 5.1-7.3 g/dL 1-2 years 5.6-7.5 g/dL>3 years 6.0-8.0 g/uD45-662 6.3-8. 3 g/dL ALT (test code = 1742-6) 70 U/L 5-50 H AST (test code = 1920-8) 59 U/L 10-35 H Lab Interpretation (test Abnormal code = 82427-0) [facility] [id number] 06:45:47 Test Item Value Reference Range Interpretation Comments WBC (test code = 5.66 See_Comment [Automated message] 67658-3) The system ic h generated this result transmit arpit reference range : 4.50 - 11.00 k/ uL. The reference r abbey was not used to interpret this result as normal/abnormal . RBC (test code = 4.04 m/uL 4.2-5.5 L 58631-5) HGB (test code = 718-7) 10.1 g/dL 12-16 L HCT (test code = 4544-3) 35.5 % 37-47 L MCV (test code = 787-2) 87.9 fL 82-100 MCH (test code = 785-6) 25.0 pg 27-34 L MCHC (test code = 786-4) 28.5 g/dL 31-37 L RDW - SD (test code = 55.4 fL 37-55 H 37457-4) MPV (test code = 10.1 fL 8.8-13.2 47780-0) Platelet count (test 190 See_Comment [Autom ated message] code = 42268-2) The system [facility] generated this result transmit arpit reference range : 150 - 400 k/uL. The reference range was not used to interpret this result as normal/abnormal . Nucleated RBC (test code 0.00 See_Comment [A utomated message] = 72253-3) The system [facility] h generated this result transmit arpit reference range : /100 WBC. The reference range was not used to interpret this result as normal/abnormal . Lab Interpretation (test Abnormal code = 60482-1) [facility] duplex venous upper ntibmgvsk8535-84-27 22:57:00Interface, Radiology Results In - 04/30/2020 10:58 PM [facility] Vascular Ultrasound Laboratory Upper Extremity Venous [address] [place] [address] Pat.Name: LIO WATTS Pat.ID: [id number] .Date: 04/30/2020 Refer.MD: ELISEO ARCE MD Exam Time: 5:04:00 PM Study Type:UE Venous Age: 9 1955,65Y Sex: FEMALE Sonogrphr: IBIS Espinosa RCS Pat. Stat.:Inpatient Room: [place] [address] 2020 Tape Vol: JM, CPT - 4: 64241 Echo Event ID:[id number] Order ID: [id number] Reason for Study:Arm swelling or pain, DVT [...] distal upper arm due to dressing and bandage.NE ELIMINARY FINDINGS1. Total superficial vein thrombosis of the right basilic vein.2. No evidence of deep vein thrombosis of the visualized veins.*Preliminary result reported to ASHLEY Santos @ 0420 on 04/30/20.PHYSICIAN INTERPRETATION Venous examination of the both upper extremities and neck demonstratednoevidence of deep venous thrombosis. Total superficial vein thrombosis of the right basilic vein.---- FINDINGS: Sig vida 04/30/2020 10:57PMFrancis Cabral MD, RPVIBrunswick MethodistXR Chest 2 Vw 2020-04-30 16:21:01Hm Interface, Radiology Results 04/30/2020 4:24 PM CSTEXAMINATION: XR CHEST 2 VWCLINICAL HISTORY: amio gttCOMPARISON: None.FINDINGS:Two views of the chest demonstrate mild cardiomegaly. Pulmonary vasculature is within normal limits.No consolidation or pleural effusion is seen. There is no evidence of pneumothorax. Low lung volume is noted.Bilateral shoulders arthroplasty changes are noted.IMPRESSION:No radiographic evidence of acute cardiopulmonary process or active disease of the chest.[id number] MethodistSurgical pathology [id number] 14:07:52 Test Item Value Reference Range Interpretation Comments Case number (test code = [id number]) Surgical pathology See link below for report (test code = PDF Lab Report 2255) Result status (test code This is Final Report = [id number]) for [id number] [facility] 12 [id number] 12:40:32 Test Item Value Reference Range Interpretation [...] abnormality in Lateral leads- Meza MethodistMidline Unsuccessful Jauzdzs6628-39-12 11:14:34ANicole zhang RN 04/30/2020 11:25 AMMidline Unsuccessful [...] I asked RN Shea to access the v ein, she was able to access the brachial vein without pain but dilator is unable to advance completely . Procedure aborted and ASHLEY Valdivia able to place a PIV g.20 in lower arm .Derrick MethodistXR Abdomen 1 Vw [id number] 10:20:14 [facility], Radiology Results Incoming - 04/30/2020 10:23 AM CSTEXAMINATION: XR ABDOMEN 1 VW PORTABLECLINICAL HISTORY: Abdominal pain post opCOMPARISON: No priorIMPRESSION:1.Residual barium within the colon throughout. No small bowel obstruction noted.[id number] CjbdnpzhhWkmmil5914-18-06 14:57:57Carlee Malloy MD 04/28/2020 2:59 PMAirwayPerformed by: Carlee Malloy MDAuthorized by: Carlee Malloy MD Location: ORUrgency: ElectiveDifficult Airway: No Anesthesiologist: Kvng Malloy MDResident/LINE OUT WORKER/AA: Allan Morocho, DOPerformed by: resident/LINE OUT WORKER/AAPreoxygenated dtaf237% O2: Yes C- spine Precautions Maintained Throughout: [...] RSI: No Number of Attempts at Approach: [address] [place] [address] Hindu 4 [id number] 10:47:52 Test Item Value Reference Range Interpretation Comments CD4% (test code = 47 % 37-57 8123-2) CD4 absolute count 426 ul 488-1340 L (test code = 45477-1) CD4 subset (test code See link below Case Number: = [id number]) for PDF Lab [id number] Report Lab Interpretation Abnormal (test code = 36284-7) Meza MethodistPOC [id number] 09:03:42 Test Item Value Reference Range Interpretation Comments POC glucose (test code 117 mg/dL 65-99 H Opera tor Name: Zenon = 59946-4) JunellDevice ID : [id number] able: [facility] Notified tool drawing checker Interpretation Abnormal (test code = 29556-0) [place] MethodistType and [id number] 03:57:00 Test Item Value Reference Range Interpretation Comments ABO grouping (test code = 883-9) A Rh type (test code = 12632-7) POS Antibody screen (gel) (test code = NEG 890-4) [facility] MethodistPhosphorus [id number] 03:27:52 Test Item Value Reference Range Interpretation Comments Phosphorus (test code = 2777-1) 3.2 mg/dL 2.4-4.5 [place] MethodistPartial thromboplastin time, [id number] 03:22:15 Test Item Value Reference Range Interpretation Comments PTT (test code = 28.3 See_[place] [address]-5) unfractionated heparin is61.0-112.0 se conds which corresponds to Anti-Xa0.3-0.7 U/ml. [Automat ed message] The system whic h generated this result tra nsmitted reference range : 23.0 - 36.0 sec. The refere nce range was not used to int erpret this result as aracely l/abnormal. [place] MethodistProthrombin time with [id number] 03:21:36 Test Item Value Reference Range Interpretation Comments Prothrombin time (test 13.6 See_Comment [Aut omated message] The code = 5902-2) system which generated this result tra nsmitted reference range : 11.5 - 14.5 sec. The r eference range was not u sed to interpret this result as normal/abnormal . INR (test code = 1.0 The Interna tional 13790-6) Normalized Rati o (INR) is a therapeutic m onitoring tool for patien ts who are stable on oral anticoagulant t herapy. An INR of 2.0-3.0 is suggested for d eep vein thrombosis/pulm onary embolism. [facility], (w Contrast, Strain and 3D if needed)2020-04-27 18:20:00Interface, Radiology Results In - 04/27/2020 6:21 PM [facility] Echocardiography Report [id number], [place] [address] Pat.Name: LIO WATTS Pat.ID: [id number].Date: 04/27/2020 Refer.MD: ELISEO ARCE MD Exam Time: 2:21:00 PM Study Type:Routine Echo Height: 64in Weight: 213lb BSA: 2.01 m2 Age: 9 1955,65Y Sex: FEMALE BP: 128/89 HR: 102 bpm Sonogrphr: SANKET Perkins Pat. Stat.:Inpatient Room: [facility] Study Status:Final Echo Event ID:[id number] Order ID: [id number] Reason for Study:Atrial FibrillationHistory / Clinical:Hypertension Procedures: [...] estimate PA systolic pressure. MEASUREMENTS: 2DParasternal Long [place] Ao An 2.2 cm LVPWd 1 cm [...] CI 3.1 l/m/m2 Signed 04/27/2020 06:20 PMBobby Contreras MethodistCOVID-19 qualitative [id number] 21:42:22 Test Item Value Reference Range Interpretation Comments Interpretation (test Negative results do code = 6442358) not preclude 2019-nCoV infection and should not be used as the sole basis for treatment or other patient management decisions. Negative results must be combined with clinical observations, patient history, and epidemiological information. COVID-19 qualitative Not-Detected Not-Detected PCR result (test code = 17222-2) COVID-19 qualitative See link below for C ase Number: PCR (test code = PDF Lab Report [id number]) [facility] MethodistPotassium [id number] 21:28:10 Test Item Value Reference Range Interpretation Comments Potassium (test code = 3.3 See_Comment L [Aut omated message] 2823-3) The system WebPT generated this result transmitted ref erence range: 3.5 - 5. 0 mEq/L. The refe rence range was not u sed to interpret this result as normal/abnor mal. Lab Interpretation (test Abnormal code = 14608-5) [place] MethodistFL Esophagram Double [id number] 12:07:12Hm Interface, Radiology Results Incoming - 04/25/2020 [...] hiatal hernia. There was mild spontaneous gastroesophageal reflux.[id number] MethodistCT Chest Wo Contrast Abdomen Wo Contrast Pelvis Wo [id number] 09:23:55Hm Interface, Radiology Results Incoming - 04/21/2020 9:27 AM CSTEXAMINATION: CT CHEST WO [...] aorta.4.Additional chronic and incidental findings as detailed above.[facility]-[id number] and approved by anesthesiology resident/fellow: Jenna Valenzuela M.D.I, Medhat Flowers Jr., M.D., personally reviewed the images and resident's/fellow's findings and agree with the final report.[facility] vegasComprehensive metabolic [id number] 08:09:22 Test Item Value Reference Range Interpretation Comments Sodium (test code = 143 See_Comment [Automa arpit message] 2951-2) The system WebPT generated this result transmit arpit reference range : 135 - 148 mEq/L. Th e reference range was not used to interpret this result as normal/abnormal . Potassium (test code = 3.8 See_Comment [Aut omated message] 2823-3) The system WebPT generated this result transmit arpit reference range : 3.5 - 5.0 mEq/L. Th e reference range was not used to interpret this result as normal/abnormal . Chloride (test code = 107 See_Comment [Auto mated message] 2074-0) The system WebPT generated this result transmit arpit reference range : 98 - 112 mEq/L. Th e reference range was not used to interpret this result as normal/abnormal . CO2 (test code = 26 See_Comment [Automated message] 2027-) The system WebPT generated this result transmit arpit reference range : 24 - 31 mEq/L. The reference range was not used to interpret this result as normal/abnormal . Anion gap (test code = 10@ANIO See_Comment [Aut omated message] 52325-6) The system WebPT generated this result transmit arpit reference range : 7 - 15 mEq/L. The reference range was not used to interpret this result as normal/abnormal . BUN (test code = 18 mg/dL 8- 3094-0) Creatinine (test code = 1.09 mg/dL 0.5-0.9 H 2160-0) Glucose (test code = 126 mg/dL 65-99 H 2345-7) Calcium (test code = 9.0 mg/dL 8.8-10.2 72221-6) Protein (test code = 6.7 g/dL 6.3-8.3 -[place] n 2885-2) 4.6-7.0 g/ dL1 week 4.4-7.6 g/dL7 months-1year 5.1-7.3 g/dL1 -2 years 5.6-7.5 g/dL>3 years 6.0-8.0 g/dL18- 150 6.3-8.3 g/dL Albumin (test code = 2.9 g/dL 3.5-5 L 1751-7) A/G ratio (test code = 0.8 0.7-3.8 1759-0) Alkaline phosphatase 57 U/L 35-104 (test code = 6768-6) AST (test code = 17 U/L 10-35 1920-8) ALT (test code = 13 U/L 5-50 1742-6) Total bilirubin (test 0.3 mg/dL 0-1.2 code = 1975-2) Lab Interpretation Abnormal (test code = 94990-7) [facility] MethodistLipase [id number] 08:09:22 Test Item Value Reference Range Interpretation Comments Lipase (test code = 3040-3) 22 U/L 13-60 [place] MethodistLactic acid level, SEPSIS - Now and repeat 2x every 3 hours 2020-04-21 08:09:20 Test Item Value Reference Range Interpretation Comments Lactic acid (test code = 61655-9) 1.2 mmol/L 0.5-2.2 [place] MethodistCHLAMYDIA, GC, TV,PCR, IN [id number] 15:38:00 Test Item Value Reference Range Interpretation Comments FT (test code = CHTR) Not detected (qualifier Not Detected N value) FT (test code = Not detected (qualifier Not Detected N NGONO) value) FT (test code = TRVG) Not detected (qualifier Not Detected N value) URINALYSIS WITH [id number] 10:57:00 Test Item Value Reference Range Interpretation Comments Color (test code = UCOLR) Dk. Yellow Clarity (test code = UCLAR) Hazy Glucose (test code = UGLUC) NEGATIVE NEGATIVE N Bilirubin (test code = UBILI) NEGATIVE NEGATIVE N Ketones (test code = UKET) NEGATIVE NEGATIVE N Specific [place] (test code = 1.025 1.005-1.030 A USPGR) [...]
--- OUTSIDE RECORDS SUMMARY | 2020-07-13 15:23 | XMS REPORT | Clinical Summary ---
:1955 Author Organization [facility] Address [address] [place] [address] Care Team Providers Name Role Phone Asked, [...] to arouse) for up to 2 doses. ARIPiprazole Take 5 mg by 0 04/25/20 [...] for up to 7 days .acute pain. amIODarone Take 1 tablet 30 tablet 0 06/02/19 Expir ed (PACERONE) 200 MG (200 mg total) 0 21 tablet by mouth daily for 30 days. apixaban Take 1 tablet (5 0 05/03/20 [...] (four) times a day for 7 days. pantoprazole Take 1 tablet 60 tablet 0 06/02/19 Exp ired (PROTONIX) 40 MG (40 mg total) by 0 21 EC tablet mouth 2 (two) times a day for 30 days. simethicone Chew 1 tablet 120 tablet 0 06/02/19 Exp ired (MYLICON) 80 MG (80 mg total) 0 21 chewable tablet every 6 (six) hours for 30 days. ARIPiprazole Take 1 tablet (5 1 tablet 0 05/03/20 Discontinued (ABILIFY) 5 MG mg total) by 0 20 (S top Taking at tablet mouth once for 1 Dis charge) dose. ipratropium-albut Take 3 mL by 360 mL 0 06/02/19 Buddy (DUO-NEB) nebulization 0 21 0.5-2.5 mg/3 mL every 4 (four) nebulizer hours while awake for 30 days. budesonide Take 2 mL (0.5 120 mL 0 06/02/19 Expi red (PULMICORT) 0.5 mg total) by 0 21 mg/2 mL nebulizer nebulization 2 solutionIndicatio (two) times a ns: Simple day for 30 [address]. chronic Use in place of bronchitis (HCC) symbicort. apixaban Take 1 tablet (5 60 tablet 0 06/02/19 Exp ired (ELIQUIS) 5 mg mg total) by 0 21 tablet mouth 2 (two) times a day for 30 days. 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 7 Encounters Date Type Specialty Care Team Description 07/11/2020 Travel 07/02/2020 Clinical Support Internal Medicine Encoun ter for immunization (P rimary Dx) 07/02/2020 Telephone General Surgery Eliseo Arce MD 07/02/2020 Travel 06/23/2020 Office Visit Cardiothoracic Eliseo Arce Surgery foll ow-up Surgery MD examination (Pr imary Dx) 06/23/2020 Telephone Cardiothoracic Clark, Nain Anderson MA 06/23/2020 Travel 06/09/2020 Telephone General Surgery Eliseo Arce MD 06/06/2020 Refill Cardiothoracic Eh Ball MD 06/03/2020 Telephone General Surgery Eliseo Arce MD 06/02/2020 Telephone General Surgery Eliseo Arce MD 05/13/2020 Orders Only Cardiothoracic Provider, Surgery MD Rochelle 05/09/2020 Telephone Cardiothoracic Carol Ann, Nain Lieberman, TIMBO 05/09/2020 Telephone General Surgery Eliseo Arce MD 05/08/2020 Telephone General Surgery Eliseo Arce MD 05/07/2020 Telephone General Surgery Eliseo Arce MD 05/05/2020 Telephone General Surgery Eliseo Arce, Diarrhea, u nspecified MD type (Primary D x) 04/28/2020 Anesthesia Event Cardiothoracic Giesecke, Tomas Surgery MD Hossein Rodriguez Alka Vinu 04/28/2020 Surgery Cardiothoracic Eliseo Arce ROBOTIC ASSGabriela OLIVEIRA Surgery LAPAROSCOPIC HI ATAL HERNIA REPAIR W ITH TOUPET FUNDOPLI CATION 04/25/[address] [facility] General Internal Eliseo Arce, Food intol erance in adult (Primary Dx); 05/03/2020 Encounter Medicine Simple chronic bronchitis (HCC) 04/25/2020 Office Visit Cardiothoracic Eliseo Arce, Hernia, hiat al (Primary Dx); Surgery Esophageal dysp hagia 04/25/2020 Hospital Radiology Eliseo Arce, Dysphagia, uns pecified type; Encounter Hiatal hernia 04/25/2020 Travel 04/24/2020 Prep for Surgery Cardiothoracic Carol Ann, Nain Lieberman, TIMBO 04/22/2020 Telephone Cardiothoracic Nain Garrison MA 04/22/2020 Travel 04/21/2020 Emergency Emergency Medicine Tu, Yen-Te Epigastri c pain (Primary Dx); MD Mario Hiatal hernia; Chronic abdomin al pain 04/21/2020 Orders Only Cardiothoracic Meisenlion, Dysphagia, un specified type (Primary Dx); Surgery Sarai Lieberman NP Hiatal hernia 04/16/2020 Telephone Cardiothoracic Nain Maharaj NP 04/10/2020 Telephone General Surgery Eliseo Arce MD 04/07/2020 Telephone Cardiothoracic Nain Sidhu MA 04/01/2020 Orders Only Cardiothoracic Provider, Nain Byrd MD 03/31/2020 Travel 03/27/2020 Telephone General Surgery Ramiro Mitchell MD after 07/13/2019 Immunizations Name Administration Dates Next Due PFIZER COVID-19 MRNA VACCINATION 07/02/2020 Surgical History Surgery Date Site/Laterality Comments ORTHOPEDIC SURGERY JOINT REPLACEMENT shoulder repla cement BREAST SURGERY cyst removed CHOLECYSTECTOMY APPENDECTOMY ARTHROPLASTY, SHOULDER, TOTAL Shoulder/Left Pr ocedure: REV. TOTAL SHOULDER 7 ARTHROPLASTY, RE MOVAL OF HARDWARE ; Surg kerry: Austin Bowles MD; Location: [place] [address] OR; Serv ice: Orthopedics; La terality: Left; Medical devices from this surgery are in t he Implants section. REPAIR, HIATAL HERNIA, Abdomen/N/A Procedure : ROBOTIC ASSISTED LAPAROSCOPIC, ROBOT-ASSISTED 0 LAP AROSCOPIC HIATAL HERNIA REPAIR WITH TOUP ET FUNDOPLICATION; Surgeon: Eliseo Arce MD ; Location: [facility]; Service: Thoracic; Later ality: N/A; Medical devices from this surgery are in t he Implants section. ESOPHAGOGASTRODUODENOSCOPY N/A Proce dure: (EGD) 0 Esophagogastrodu odenoscopy (Egd), Endoflip; Surgeon: Eliseo Arce MD ; Location: [facility]; Service: Thoracic; Later ality: N/A; Medical devices [...] been in contact with No / Unsure 07/11/2020 2:17 PM VIDEOGRAPHER someone who was confirmed or suspected to have Coronavirus / COVID-19? Last Filed Vital Signs Vital Sign Reading Time Taken Comments Blood Pressure 137/82 06/23/2020 10:22 AM VIDEOGRAPHER Pulse 67 06/23/2020 10:22 AM VIDEOGRAPHER Temperature 36.1 C (97 F) 06/23/2020 10:22 AM VIDEOGRAPHER Respiratory Rate 17 06/23/2020 10:22 AM VIDEOGRAPHER Oxygen Saturation 99% 06/23/2020 10:22 AM VIDEOGRAPHER Inhaled Oxygen Concentration - - Weight 95.7 kg (211 lb) 06/23/2020 10:22 AM VIDEOGRAPHER Height 162.6 cm (5' 4") 06/23/2020 10:22 AM VIDEOGRAPHER Body Mass Index 36.22 06/23/2020 10:22 AM VIDEOGRAPHER Plan of Treatment Date Type Specialty Care Team Description 07/22/2020 Office Visit Family Medicine Corin Landeros MD [address] [facility] [address] [place], [place] [address] 07/23/2020 Clinical Support Internal Medicine Hoang Valle MD [address] [facility] [address] [place], [place] [address] [phone] 08/13/2020 Office Visit Cardiothoracic Surgery Eliseo Arce MD [address] [facility] [address] [place], [place] [address] [phone] Health Maintenance Due Date Last Done Comments DIABETES: RETINAL EYE EXAM 01/22/1966 DIABETIC FOOT EXAM 01/22/1966 CERVICAL CANCER SCREENING 01/22/1977 BREAST CANCER SCREENING 01/22/2006 COLONOSCOPY SCREENING 01/22/2006 SHINGLES VACCINES (#1) 01/22/2006 INFLUENZA VACCINE 12/22/2019 03/08/2017, 01/30/2014, 02/16/2012, Additional history exists COVID-19 VACCINE (2 of 2 - Pfizer 07/23/2020 07/02/2020 series) Implants Implanted Type Area [employer] Device Shelf Model / Identifier Expiration Serial / Date Lot Versa-Dial/Comp Ti Std Taper Used W/25mm Glenoid Basp late - [id number] IMPLANT N/A: N/A [employer] 01/22/2026 [id number] / Implanted: Qty: 1 on 10/19/2016 by Austin Bowles MD at [facility] DEVICES / [id number] 41mm Comprehensive Reverse Shoulder Glenosphere Ba - [id number] IPM IMPLANT N/A: N/A [employer] 11/21/2023 [id number] / Implanted: Qty: 1 on 10/19/2016 by Austin Bowles MD at [facility] DEVICES / [id number] Arcom Xl 44-41 Std +3 Humeral Brg - [id number] IMPLANT Left: [employer] 07/20/2017 XL [id number] / Implanted: Qty: 1 on 10/19/2016 by Austin Bowles MD at [facility] DEVICES Shoulder / [id number] Catheter Endoflip 8cm Measurement - [id number] Surgical N/A: N/A CROSPON 10/17/2021 EF 325N / Implanted: Qty: 1 on 04/28/2020 at [facility] Implants; / Expanders; [id number] Extenders; Surgical Wires Roulette Perp Vasclr Ptfe 1.2x10cm 1.65mm - [id number] Vascular N/A: N/A BARD PERIPHERAL 10/17/2024 [id number] / Implanted: Qty: 1 on 04/28/2020 at [facility] Graft VA SCULAR / [id number] Roulette Perp Vasclr Ptfe 1.2x10cm 1.65mm - [id number] Vascular N/A: N/A BARD PERIPHERAL 10/17/2024 [id number] / Implanted: Qty: 1 on 04/28/2020 at [facility] Graft VA SCULAR / [id number] Humeral Tray With Locking Ring +5 Left: [employer] 03/31/2026 [id number] / Implanted: Qty: 1 on 10/19/2016 by Austin Bowles MD at [facility] / [id number] Procedures Procedure Name Priority Date/Time Associated Comments Diagnosis [id number] Routine 05/07/2020 ESTIMATED GFR Routine 05/02/2020 9:08 Results fo r this AM VIDEOGRAPHER procedure are i n the results section. MAGNESIUM LEVEL Routine 05/02/2020 9:08 Results for this AM VIDEOGRAPHER procedure are i n the results section. HC COMPLETE BLD COUNT Routine 05/02/2020 9:08 Re sults for this W/AUTO DIFF AM VIDEOGRAPHER procedure are i n the results section. BASIC METABOLIC PANEL Routine 05/02/2020 9:08 Re sults for this AM VIDEOGRAPHER procedure are i n the results section. CBC HEMOGRAM Routine 05/01/2020 5:20 Results for this AM VIDEOGRAPHER procedure are i n the results section. THYROID STIMULATING Routine 05/01/2020 4:00 Resu lts for this HORMONE AM VIDEOGRAPHER procedure are i n the results section. HEPATIC FUNCTION PANEL Routine 05/01/2020 4:00 R esults for this AM VIDEOGRAPHER procedure are i n the results section. ESTIMATED GFR Routine 05/01/2020 4:00 Results fo r this AM VIDEOGRAPHER procedure are i n the results section. BASIC METABOLIC PANEL Routine 05/01/2020 4:00 Re sults for this AM VIDEOGRAPHER procedure are i n the results section. US DUPLEX VENOUS UPPER STAT 04/30/2020 5:36 R esults for this EXTREMITY BILATERAL PM VIDEOGRAPHER procedur e are in the results section. XR CHEST 2 VW Routine 04/30/2020 4:18 Results fo r this PM VIDEOGRAPHER procedure are i n the results section. MIDLINE INSERTION Routine 04/30/2020 11:14 Result s for this ATTEMPT - UNSUCCESSFUL AM VIDEOGRAPHER proce dure are in the results section. XR ABDOMEN 1 VW STAT 04/30/2020 9:45 Results for this PORTABLE AM VIDEOGRAPHER procedure are i n the results section. ECG 12-LEAD STAT 04/30/2020 9:06 Results for this AM VIDEOGRAPHER procedure are i n the results section. MS AN ELECTIVE Routine 04/28/2020 2:57 Results f or this ENDOTRACHEAL AIRWAY PM VIDEOGRAPHER procedur e are in the results section. POC GLUCOSE Routine 04/28/2020 9:01 Results for this AM VIDEOGRAPHER procedure are i n the results section. SURGICAL PATHOLOGY Routine 04/28/2020 8:27 Resul ts for this REQUEST AM VIDEOGRAPHER procedure are i n the results section. TYPE AND SCREEN Routine 04/28/2020 2:11 Results for this AM VIDEOGRAPHER procedure are i n the results section. ESTIMATED GFR Routine 04/28/2020 2:11 Results fo r this AM VIDEOGRAPHER procedure are i n the results section. PARTIAL THROMBOPLASTIN Routine 04/28/2020 2:11 R esults for this TIME (PTT) AM VIDEOGRAPHER procedure are i n the results section. PROTHROMBIN TIME WITH Routine 04/28/2020 2:11 Re sults for this INR AM VIDEOGRAPHER procedure are i n the results section. PHOSPHORUS LEVEL Routine 04/28/2020 2:11 Results for this AM VIDEOGRAPHER procedure are i n the results section. MAGNESIUM LEVEL Routine 04/28/2020 2:11 Results for this AM VIDEOGRAPHER procedure are i n the results section. HC COMPLETE BLD COUNT Routine 04/28/2020 2:11 Re sults for this W/AUTO DIFF AM VIDEOGRAPHER procedure are i n the results section. BASIC METABOLIC PANEL Routine 04/28/2020 2:11 Re sults for this AM VIDEOGRAPHER procedure are i n the results section. POC GLUCOSE Routine 04/27/2020 11:38 Results for this PM VIDEOGRAPHER procedure are i n the results section. POC GLUCOSE Routine 04/27/2020 8:14 Results for this PM VIDEOGRAPHER procedure are i n the results section. TTE COMPLETE, WO Routine 04/27/2020 3:00 Results for this CONTRAST, W DOPPLER PM VIDEOGRAPHER procedur e are in ([id number]) the results section. POC GLUCOSE Routine 04/27/2020 12:30 Results for this PM VIDEOGRAPHER procedure are i n the results section. ESTIMATED GFR Routine 04/27/2020 6:34 Results fo r this AM VIDEOGRAPHER procedure are i n the results section. BASIC METABOLIC PANEL Routine 04/27/2020 6:34 Re sults for this AM VIDEOGRAPHER procedure are i n the results section. POC GLUCOSE Routine 04/26/2020 9:18 Results for this PM VIDEOGRAPHER procedure are i n the results section. ECG 12-LEAD Routine 04/26/2020 8:24 Results for this PM VIDEOGRAPHER procedure are i n the results section. COVID-19 QUALITATIVE Routine 04/26/2020 3:44 Res ults for this PCR PM VIDEOGRAPHER procedure are i n the results section. MISCELLANEOUS REFERRAL Routine 04/26/2020 3:05 R esults for this TEST AM VIDEOGRAPHER procedure are i n the results section. ESTIMATED GFR Routine 04/26/2020 3:05 Results fo r this AM VIDEOGRAPHER procedure are i n the results section. CD 4 SUBSET Routine 04/26/2020 3:05 Results for this AM VIDEOGRAPHER procedure are i n the results section. PHOSPHORUS LEVEL Routine 04/26/2020 3:05 Results for this AM VIDEOGRAPHER procedure are i n the results section. MAGNESIUM LEVEL Routine 04/26/2020 3:05 Results for this AM VIDEOGRAPHER procedure are i n the results section. BASIC METABOLIC PANEL Routine 04/26/2020 3:05 Re sults for this AM VIDEOGRAPHER procedure are i n the results section. HC COMPLETE BLD COUNT Routine 04/26/2020 3:05 Re sults for this W/AUTO DIFF AM VIDEOGRAPHER procedure are i n the results section. POTASSIUM LEVEL Routine 04/25/2020 9:04 Results for this PM VIDEOGRAPHER procedure are i n the results section. ESTIMATED GFR STAT 04/25/2020 6:51 Results fo r this PM VIDEOGRAPHER procedure are i n the results section. PHOSPHORUS LEVEL STAT 04/25/2020 6:51 Results for this PM VIDEOGRAPHER procedure are i n the results section. MAGNESIUM LEVEL STAT 04/25/2020 6:51 Results for this PM VIDEOGRAPHER procedure are i n the results section. BASIC METABOLIC PANEL STAT 04/25/2020 6:51 Re sults for this PM VIDEOGRAPHER procedure are i n the results section. HC COMPLETE BLD COUNT STAT 04/25/2020 6:51 Re sults for this W/AUTO DIFF PM VIDEOGRAPHER procedure are i n the results section. FL ESOPHAGRAM DOUBLE Routine 04/25/2020 11:31 Dysphagia, Res ults for this CONTRAST AM VIDEOGRAPHER unspecified type procedure are in Hiatal hernia the results section. CT CHEST WO CONTRAST STAT 04/21/2020 8:15 Res ults for this ABDOMEN WO CONTRAST AM VIDEOGRAPHER procedur e are in PELVIS WO CONTRAST the resul ts section. ESTIMATED GFR STAT 04/21/2020 7:22 Results fo r this AM VIDEOGRAPHER procedure are i n the results section. LACTIC ACID LEVEL, STAT 04/21/2020 7:22 Resul ts for this SEPSIS - NOW AND REPEAT AM VIDEOGRAPHER proc edure are in 2X EVERY 3 HOURS the results section. LIPASE LEVEL STAT 04/21/2020 7:22 Results for this AM VIDEOGRAPHER procedure are i n the results section. COMPREHENSIVE METABOLIC STAT 04/21/2020 7:22 Results for this PANEL AM VIDEOGRAPHER procedure are i n the results section. HC COMPLETE BLD COUNT STAT 04/21/2020 7:22 Re sults for this W/AUTO DIFF AM VIDEOGRAPHER procedure are i n the results section. after 07/13/2019 Results Miscellaneous Lab Result (05/07/2020) Specimen Blood Narrative Performed At This result has an attachment that is no t available. Estimated GFR (05/02/2020 9:08 AM VIDEOGRAPHER)Only the most recent of7 resultswithin the time period is included. [facility] Estimated GFR 52 (A) mL/min/1.73 [facility] Comment: m2 HOSPITAL Catergory Units Interpretation G1 [...] in 2014. Specimen Plasma Performing Organization Address City/State/[facility] Code Phon e Number [facility] DEPARTMENT OF PATHOLOGY AND [address] [place] [phone] GENOMIC MEDICINE [address] [address] CBC with platelet and differential (05/02/2020 9:08 AM VIDEOGRAPHER)Only the most recent of5 resultswithin the time period is included. [facility] WBC 6.33 4.50 - 11.00 [facility] k/uL [facility] RBC 4.23 4.20 - 5.50 [facility] m/uL [facility] HGB 10.3 (L) 12.0 - 16.0 [facility] g/dL [facility] HCT 36.3 (L) 37.0 - 47.0 % [facility] MCV 85.8 82.0 - 100.0 [facility] MCH 24.3 (L) 27.0 - 34.0 pg [facility] MCHC 28.4 (L) 31.0 - 37.0 [facility] RDW - SD 52.8 37.0 - 55.0 fL [facility] MPV 9.8 8.8 - 13.2 fL [facility] Platelet count 249 150 - 400 k/uL [facility] Nucleated RBC 0.50 /100 WBC [facility] Neutrophils 71.1 (H) 39.0 - 69.0 % [facility] Lymphocytes 14.8 (L) 25.0 - 45.0 % [facility] Monocytes 9.8 0.0 - 10.0 % [facility] Eosinophils 3.0 0.0 - 5.0 % [facility] Basophils 0.5 0.0 - 1.0 % [facility] Immature granulocytes 0.8Comment: 0.0 - 1.0 % [facility] "Immature HOSPITAL granulocytes" (promyelocytes , myelocytes, metamyelocytes ) Specimen Plasma Performing Organization Address City/[facility] Phon e Number [facility] DEPARTMENT OF PATHOLOGY AND [address] [place] [address] [phone] [address] Magnesium level (05/02/2020 9:08 AM VIDEOGRAPHER)Only the most recent of4 resultswithin the time period is included. Pathologist Sig nature Magnesium 1.9 1.6 - 2.4 mg/dL [facility] L Specimen Plasma Performing Organization Address [facility] Phon e Number [facility] DEPARTMENT OF PATHOLOGY AND [address] [place] [address] [phone] [address] Basic metabolic panel (05/02/2020 9:08 AM VIDEOGRAPHER)Only the most recent of6 results within the time period is included. Pathologist Sig nature Sodium 138 135 - 148 mEq/L [facility] Potassium 3.6 3.5 - 5.0 mEq/L [facility] Chloride 99 98 - 112 mEq/L [facility] CO2 26 24 - 31 mEq/L [facility] Anion gap 13@ANIO 7 - 15 mEq/L [facility] BUN 17 8 - 23 mg/dL [facility] Creatinine 1.11 (H) 0.50 - 0.90 mg/dL [facility] Glucose 128 (H) 65 - 99 mg/dL [facility] Calcium 8.9 8.8 - 10.2 mg/dL [facility] Specimen Plasma Performing Organization Address [facility] Phon e Number [facility] DEPARTMENT OF PATHOLOGY AND [address] [place] [address] [phone] [address] CBC hemogram (05/01/2020 5:20 AM VIDEOGRAPHER) Pathologist Sig nature WBC 5.66 4.50 - 11.00 k/uL [facility] RBC 4.04 (L) 4.20 - 5.50 m/uL [facility] HGB 10.1 (L) 12.0 - 16.0 g/dL [facility] HCT 35.5 (L) 37.0 - 47.0 % [facility] MCV 87.9 82.0 - 100.0 fL [facility] MCH 25.0 (L) 27.0 - 34.0 pg [facility] MCHC 28.5 (L) 31.0 - 37.0 g/dL [facility] RDW - SD 55.4 (H) 37.0 - 55.0 fL [facility] MPV 10.1 8.8 - 13.2 fL [facility] Platelet count 190 150 - 400 k/uL [facility] Nucleated RBC 0.00 /100 WBC [facility] Specimen Plasma Performing Organization Address City/[facility] Phon e Number [facility] DEPARTMENT OF PATHOLOGY AND [address] [place] [address] [phone] [address] Thyroid stimulating hormone (05/01/2020 4:00 AM VIDEOGRAPHER) Pathologist [facility] TSH 3.83 0.27 - 4.20 uIU/mL [facility] ITAL Specimen Plasma Performing Organization Address City/[facility] Phon e Number [facility] DEPARTMENT OF PATHOLOGY AND [address] [place] [phone] [address] Hepatic function panel (05/01/2020 4:00 AM VIDEOGRAPHER) Albumin 2.8 (L) 3.5 - 5.0 [facility] g/dL [facility] Total bilirubin 0.5 0.0 - 1.2 [facility] mg/dL [facility] Bilirubin direct <0.2 0.0 - 0.3 [facility] mg/dL [facility] Alkaline phosphatase 72 35 - 104 U/L [facility] Protein 6.3 6.3 - 8.3 [facility] Comment: g/dL [facility] [place] 4.6-7.0 g/dL 1 week 4.4-7.6 g/dL 7 months-1year 5.1-7.3 g/dL 1-2 years 5.6-7.5 g/dL >3 years 6.0-8.0 g/dL 18-150 6.3-8.3 g/dL ALT 70 (H) 5 - 50 U/L [facility] AST 59 (H) 10 - 35 U/L [facility] Specimen Plasma Performing Organization Address City/State/ZIP Code Phon e Number [facility] DEPARTMENT OF PATHOLOGY AND [address] [place] [address] GENOMIC MEDICINE [facility] [address] [place] [address] duplex venous upper extremity (04/30/2020 5:36 PM VIDEOGRAPHER) Specimen Narrative Performed At [facility] Upper Extr emity Venous Report [address] [place] [address] Pat.Name: MARJAN FLEMING Pat.ID: [id number] .Date: 04/30/2020 Refer.MD: ELISEO ARCE MD Exam Time: 5:04:00 PM Study Type:U E Venous Age: 9 1955,65Y Sex: FEMALE Sonogrphr: IBIS Espinosa RCS Pat. Stat.:Inpati ent Room: [facility] [id number] 2020 Tape Vol: EDGAR, CPT - 4: 37071 Echo Jerica nt ID:[id number] Order ID: [id number] Reason for Study:Arm swelling or pain, D [...] *Preliminary result reported to ASHLEY Santos @ 1645 on 04/30/20. PHYSICIAN INTERPRETATION Venous examination of the both upper ext remities and neck demonstrated no evidence of deep venous thrombosis. Total superficial vein thrombosis of th e right basilic vein. FINDINGS: Signed 04/30/2020 10:57 PM Francis Cabral MD, RPVI Procedure Note Interface, Radiology Results In - 2019 10:58 PM VIDEOGRAPHER [facility] Upper Extremity Veno us Report [id number] [place] [address] Pat.Name: MARJAN FLEMING I D: [id number] .Date: 04/30/2020 Refer .MD: ELISEO ARCE MD Exam Time: 5:04:00 PM Study Type:UE Venous Age: 10 1955,65Y Sex: FEMALE Sonogrphr: IBIS Espinosa, SANKET Pat. Stat.:Inpatient Room: [place] [address] 2020 Tape Vol: JM, CPT - 4: 05720 Echo Event ID:[id number] Order ID: [id number] Reason for Study:Arm swelling or pain, D [...] *Preliminary result reported to ASHLEY Santos @ 6516 on 04/30/20. PHYSICIAN INTERPRETATION Venous examination of the both upper ext remities and neck demonstrated no evidence of deep venous thrombosis. Total superficial vein thrombosis of th e right basilic vein. FINDINGS: Signed 04/30/2020 10:57 PM Francis Cabral MD, RPVI Performing Organization Address City/State/ZIP Code Phon e Number [facility] [id number] [place] [address] XR Chest 2 Vw (04/30/2020 4:18 PM VIDEOGRAPHER) Specimen Narrative Performed At EXAMINATION: XR CHEST [...] Radiology Results Incoming - 04/30/2020 4:24 PM VIDEOGRAPHER EXAMINATION: XR CHEST 2 VW CLINICAL HISTORY: [...] of the chest. [id number] Performing Organization Address City/State/ZIP Code Phon e Number HELEN [address] [place] [address] Midline Unsuccessful Attempt (04/30/2020 11:14 AM VIDEOGRAPHER) Narrative Performed At Nicole Dailey RN 04/30/2020 11 :25 AM Midline Unsuccessful Attempt Date/Time: 04/30/2020 11:14 AM Performed by: Nicole Dailey RN Authorized by: Eliseo Arce MD Consent: Consent obtained: Verbal Consent given by: Patient Risks discussed: arterial puncture, i ncorrect placement, bleeding, infection, superficial thrombus, deep ve in thrombus and nerve damage Alternatives discussed: Alternative treatment [place] protocol: Procedure explained and questions ans wered [...] Abdomen 1 Vw Portable (04/30/2020 9:45 AM VIDEOGRAPHER) Specimen Narrative Performed At EXAMINATION: XR ABDOMEN 1 VW PORTABLE [facility] CLINICAL HISTORY: Abdominal pain pos t op COMPARISON: No prior IMPRESSION: 1.Residual barium within the colon throughout. No smal l bowel obstruction noted. [facility]-[id number] Procedure Note Interface, Radiology Results Incoming - 04/30/2020 10:23 AM VIDEOGRAPHER EXAMINATION: XR ABDOMEN 1 VW PORTABLE CLINICAL HISTORY: Abdominal pain post op COMPARISON: No prior IMPRESSION: 1.Residual barium within the colon throu ghout. No small bowel obstruction noted. [facility]-[id number] Performing Organization Address [facility] Phon e Number RADI[facility] [address] [place] [address] ECG 12 lead (04/30/2020 9:06 AM VIDEOGRAPHER)Only the most recent of2 resultswithin the time period is included. Pathologist Sig nature Ventricular rate 135 [facility] MUSE Atrial rate 159 [facility] MUSE QRSD interval 82 [facility] MUSE QT interval 344 [facility] MUSE QTC interval 516 [facility] MUSE QRS axis 1 -6 [facility] MUSE T wave axis 167 [facility] MUSE EKG impression Atrial fibrillation with rap id ventricular response-Voltage criteria for left ventricular hypertrophy-ST & T wave abnormality, consider lateral ischemia-Abnormal ECG-In automated comparison with ECG [facility] MUSE of 26-APR-2020 20:24,-Vent. rate has increased BY 5 0 BPM-ST now depressed in Late ral leads-Nonspecific T wave abnormality now evident in Inferior leads-Inverted T waves have replaced nonspecific T wave abnormality in Lateral leads- Specimen Narrative Performed At This result has an attachment that is no t available. Performing Organization Address [facility]/ZIP [facility] Phon e Number [facility] MUSE [address] [place] [address] Airway (04/28/2020 2:57 PM VIDEOGRAPHER) Narrative Performed At Carlee Malloy MD 04/28/2020 2 :59 PM Airway Performed by: Carlee Malloy MD Authorized by: Carlee Malloy MD Location: OR Urgency: Elective Difficult Airway: No Anesthesiologist: Carlee Malloy MD Resident/COCOA BUTTER FILTER OPERATOR/AA: Allan Morocho DO Performed by: resident/COCOA BUTTER FILTER OPERATOR/AA Preoxygenated with 100% O2: Yes C-spine Precautions [...] Approach: 1 POC glucose (04/28/2020 9:01 AM VIDEOGRAPHER)Only the most recent of5 resultswithin the time period is included. Pathologist [facility] nature POC glucose 117 (H) 65 - 99 mg/dL [facility] Comment: HOSPITAL Envelope Adjuster Name: Zenon Clemente Device ID: [id number] Chartable: [facility] Notified RN Specimen Blood Performing Organization Address City/[facility] Phon e Number [facility] DEPARTMENT OF PATHOLOGY AND [address] [place] [phone] GENOMIC MEDICINE [address] [address] Surgical pathology request (04/28/2020 8:27 AM VIDEOGRAPHER) [facility] DEPARTMENT OF PATHOLOGY AND GENOMIC MEDICINE Surgical pathology See link below [facility] DEPARTMENT OF report for PDF Lab PATHOLOGY AND Report GENOMIC MEDICINE Result status This is Final [facility] DEPARTMENT OF Report for PATHOLOGY AND [id number] GENOMIC MEDICINE Specimen Performing Organization Address City/[facility] Phon e Number [facility] DEPARTMENT OF PATHOLOGY AND [address] [place] [phone] GENOMIC MEDICINE Partial thromboplastin time, activated (04/28/2020 2:11 AM VIDEOGRAPHER) PTT 28.3 23.0 - 36.0 [facility] Comment: [facility] PTT therapeutic range for unfractionated heparin is 61.0-112.0 seconds which corresponds to Anti-Xa 0.3-0.7 U/ml. Specimen Blood Performing Organization Address [facility] Phon e Number [facility] DEPARTMENT OF PATHOLOGY AND [address] [place], [place] [address] [address] [address] Prothrombin time with INR (04/28/2020 2:11 AM VIDEOGRAPHER) Prothrombin time 13.6 11.5 - 14.5 [facility] INR 1.0 [place] Comment: [facility] International Normalized Ratio (INR) is a therapeu [facility] monitoring tool for patients who are stable on oral anticoagulant therapy. An INR of 2.0-3.0 is suggested for deep vein thrombosis/pulmonary embolism. Specimen Blood Performing Organization Address [facility] Phon e Number [facility] DEPARTMENT OF PATHOLOGY AND [address] [place] [address] 0 [place] [phone] Type and screen (04/28/2020 2:11 AM VIDEOGRAPHER) Pathologist Sig nature ABO grouping A [facility] Rh type POS [facility] Antibody screen (gel) NEG [facility] Specimen Plasma Performing Organization Address [facility] Phon e Number [facility] DEPARTMENT OF PATHOLOGY AND [address] [place], [place] [address] [address] [address] Phosphorus level (04/28/2020 2:11 AM VIDEOGRAPHER)Only the most recent of3 resultswithin the time period is included. Pathologist Sig nature Phosphorus 3.2 2.4 - 4.5 mg/dL [facility] Specimen Plasma Performing Organization Address [facility] Phon e Number [facility] DEPARTMENT OF PATHOLOGY AND [address] [place], [place] [address] 0 [place] [phone] Transthoracic Echocardiogram Complete, (w Contrast, Strain and 3D if needed) (04/27/2020 3:00 PM VIDEOGRAPHER) Specimen Narrative Performed At [facility] Echo cardiography Report 65 [facility] august 9, [place] [id number] Pat.Name: MARJAN FLEMING Pat.ID: [id number] .Date: 04/27/2020 Refer.MD: ELISEO ARCE MD Exam Time: 2:21:00 PM Study Type:R outine Echo Height: 64in Weight: 213lb BSA: 2.01 m2 Ag e: 1955,65Y Sex: FEMALE BP: 128/89 HR: 102 bpm Sonogrp hr: Julieta Wills, [facility] Pat. Stat.:Inpatient Room: [facility] Study Status:Final Echo Event ID:[id number] Order ID: [id number] Reason for Study:Atrial Fibrillation History / Clinical:Hypertension [...] PA systolic pressure. MEASUREMENTS: 2D Parasternal [place] Ao An 2.2 cm LVPWd 1 cm [...] Radiology Results In - 2019 6:21 PM VIDEOGRAPHER Echocardiography Report [address] [place] [address] Pat.Name: MARJAN FLEMING Pat.I D: [id number] .Date: 04/27/2020 Refer .MD: ELISEO ARCE MD Exam Time: 2:21:00 PM Study Type:Routine Echo Height: 64in Weigh t: 213lb BSA: 2.01 m2 Age: 10 1955,65Y Sex: FEMALE BP: 128/89 HR: 102 bpm Sonog rphr: SANKET Perkins Pat. Stat.:Inpatient Room: [facility] Study Status:Final Echo Event ID:[id number] Order ID: [id number] Reason for Study:Atrial Fibrillation History / Clinical:Hypertension [...] PA systolic pressure. MEASUREMENTS: 2D Parasternal [place] Ao An 2.2 cm LVPW d 1 [...] PM Sandra Martin MD Performing Organization Address City/[facility]/ZIP Code Phon e Number [facility] [address] [place] [address] COVID-19 qualitative PCR (04/26/2020 3:44 PM VIDEOGRAPHER) Interpretation Negative results do not prec lude 2019-nCoV infection and should not be used as the sole basis for treatment or other patient management decisions. Negative results must be combined with clinical observations, patient history, and epidemiological [place] information. [facility] COVID-19 qualitative Not-Detected Not-Detecte [place] PCR result d [facility] See link below for [place] PCR PDF Lab [facility] ReportComment: Case HOSPITAL Number: [id number] Specimen Nasal swab Performing Organization Address City/[facility] Phon e Number [facility] DEPARTMENT OF PATHOLOGY AND [address] [place], [place] [address] [address] [address] [facility] Miscellaneous referral test (04/26/2020 3:05 AM VIDEOGRAPHER) [facility] test name HIV-1 RNA QUAL PCR SHOWN ABOVE [facility] test result see note SHOWN ABOVE Comment: Human Immunodeficiency Virus 1 (HIV-1) by Qualitative Health Science Specialist-Mediated Amplification (TMA) [facility] test code [id number] HIV-1 by Qualitative TMA See Note SOURCE/SPECIMEN [...] alitative Assay (Gen-Probe). ===== Test performed by: [employer] [address] [place], [place] [address] Specimen Narrative Performed At HIV - HIV-1 RNA, Qualitative TMA (FROZ EN) [facility] DEPARTMENT OF PATHOLOGY AND GENOMIC [facility] Test Code: 6760632 MEDICINE Source: plasma Performing Organization Address City/[facility] Phon e Number [facility] DEPARTMENT OF PATHOLOGY AND [address] [place] [address] 0 [facility] SHOWN ABOVE CD 4 subset (04/26/2020 3:05 AM VIDEOGRAPHER) CD4% 47 37 - 57 % [facility] CD4 absolute count 426 (L) 488 - 1,340 ul [facility] CD4 subset See link below [facility] PDF Lab HOSPITAL ReportComment: Specimen Blood Performing Organization Address [facility] Phon e Number [facility] DEPARTMENT OF PATHOLOGY AND [address] [place] [address] Potassium level (04/25/2020 9:04 PM VIDEOGRAPHER) Pathologist Sig nature Potassium 3.3 (L) 3.5 - 5.0 mEq/L [facility] L Specimen Plasma Performing Organization Address City/[facility] Phon e Number [facility] DEPARTMENT OF PATHOLOGY AND [address] [place], [place] [address] [address] [address] [place] Esophagram Double Contrast (04/25/2020 11:31 AM VIDEOGRAPHER) Specimen Narrative Performed At EXAMINATION: [place] ESOPHAGRAM [...] mild spontaneous gastroesophageal reflux. [id number] Procedure Note Hm Interface, Radiology Results Incoming - 04/25/2020 12:10 PM VIDEOGRAPHER EXAMINATION: [place] ESOPHAGRAM DOUBLE CONTRAST CLINICAL HISTORY: R13.10 Dysphagia uns pecified, K44.9 Diaphragmatic hernia without obstruction or gangrene, Dysphagia unexplained, dysphagia hiatal hernia COMPARISON: Limited comparison with [facility] CT from April 21, 2020 TECHNIQUE: Esophagram [...] City/State/ZIP Code Phon e Number RAD[facility] [address] [facility] [place] [address] CT Chest Wo Contrast Abdomen Wo Contrast Pelvis Wo Contrast (04/21/2020 8:15 AM VIDEOGRAPHER) Specimen Narrative Performed At EXAMINATION: CT CHEST [...] and incidental find ings as detailed above. [facility]-[id number] Dictated and approved by professor of radiology/fellow: Werner Valenzuela M.D. I, Medhat Flowers Jr., M.D., personally reviewed the [facility] ges and resident's/fellow's findings and agree with the final report. Procedure Note [facility], Radiology Results Incoming - 04/21/2020 9:27 AM VIDEOGRAPHER EXAMINATION: CT CHEST WO CONTRAST ABDOMEN WO [...] and incidental find ings as detailed above. [facility]-[id number] Dictated and approved by radiology resid ent/fellow: Jenna Valenzuela M.D. I, Medhat Flowers Jr., M.D., personally re viewed the images and resident's/fellow's findings and agree with the final report. Performing Organization Address City/State/ZIP Code Phon e Number RAD[facility] [address] [place] [address] Lactic acid level, SEPSIS - Now and repeat 2x every 3 hours (04/21/2020 7:22 AM VIDEOGRAPHER) Pathologist Sig nature Lactic acid 1.2 0.5 - 2.2 mmol/L [facility] Specimen Plasma Performing Organization Address City/[facility] Code Phon e Number [facility] DEPARTMENT OF PATHOLOGY AND [address] [place] [address] [phone] [address] Lipase level (04/21/2020 7:22 AM VIDEOGRAPHER) Pathologist Sig nature Lipase 22 13 - 60 U/L [facility] Specimen Plasma Performing Organization Address City/[facility] Phon e Number [facility] DEPARTMENT OF PATHOLOGY AND [address] [place] [address] [phone] [address] Comprehensive metabolic panel (04/21/2020 7:22 AM VIDEOGRAPHER) Sodium 143 135 - 148 [facility] mEq/L [facility] Potassium 3.8 3.5 - 5.0 [facility] mEq/L [facility] Chloride 107 98 - 112 [facility] mEq/L [facility] CO2 26 24 - 31 mEq/L [facility] Anion gap 10@ANIO 7 - 15 mEq/L [facility] BUN 18 8 - 23 mg/dL [facility] Creatinine 1.09 (H) 0.50 - 0.90 [facility] mg/dL HOSPITAL Glucose 126 (H) 65 - 99 mg/dL [facility] Calcium 9.0 8.8 - 10.2 [facility] mg/dL HOSPITAL Protein 6.7 6.3 - 8.3 [facility] Comment: g/dL [facility] [place] 4.6-7.0 g/dL 1 week 4.4-7.6 g/dL 7 months-1year 5.1-7.3 g/dL 1-2 years 5.6-7.5 g/dL >3 years 6.0-8.0 g/dL 18-150 6.3-8.3 g/dL Albumin 2.9 (L) 3.5 - 5.0 [facility] g/dL HOSPITAL A/G ratio 0.8 0.7 - 3.8 [facility] Alkaline phosphatase 57 35 - 104 U/L [facility] AST 17 10 - 35 U/L [facility] ALT 13 5 - 50 U/L [facility] Total bilirubin 0.3 0.0 - 1.2 [facility] mg/dL HOSPITAL Specimen Plasma Performing Organization Address City/State/ZIP Code Phon e Number [facility] DEPARTMENT OF PATHOLOGY AND [address] [place] [phone] GENOMIC MEDICINE [facility] [address] [place] [address] after 07/13/2019 Advance Directives For more information, please contact: [phone] Type Date Recorded Patient Catalogue Clerk Explanati on Advance Directives, Living Will and Medical Power of Car Repair Supervisor Advance Directives, Living 04/21/2020 8:24 AM Will and Medical Power of Car Repair Supervisor
--- NOTE | 2020-07-13 16:54 | ER ---
Nurse's Notes [facility] Name: Marjan Fleming Age: 65 yrs Sex: Female : 1955 Arrival Date: 07/13/2020 Time: 15:00 Bed Waiting Private MD: Lele Rahman H Diagnosis: Presentation: 07/13 15:11 Chief complaint: Patient states: L sided chest pain, radiating to the neck and head. ca1 Reports tingling and numbness on L hand. Reports dizziness with chest pain. I feel a knot right about my spine and my head. Coronavirus screen: Client denies travel out of the [place] in the last 14 days. At this time, the client does not indicate any symptoms associated with coronavirus-19. Ebola Screen: Patient negative for fever greater than or equal to 101.5 degrees Fahrenheit, and additional compatible Ebola Virus Disease symptoms Patient denies exposure to infectious person. Patient denies travel to an Ebola-affected area in the 21 days before illness onset. No symptoms or risks identified at this time. Initial Sepsis Screen: Does the patient meet any 2 criteria? No. Patient's initial sepsis screen is negative. Does the patient have a suspected source of infection? No. Patient's initial sepsis screen is negative. Risk Assessment: Do you want to hurt yourself or someone else? Patient reports no desire to harm self or others. Onset of symptoms was July 13, 2020. 15:11 Method Of Arrival: Wheelchair ca1 15:11 Acuity: BLAYNE 3 ca1 16:52 Note SHEELA Cherry litigation secretary states pt left at 1632. ca1 Historical: - Allergies: 15:14 Bactrim DS; ca1 15:14 Stadol; ca1 15:14 butorphanol tartrate; ca1 15:14 Fentanyl; ca1 15:14 metoclopramide HCl; ca1 15:14 TRIMETHOPRIM; ca1 15:14 sulfamethoxazole (bulk); ca1 - Home Meds: 15:14 Eliquis 5 mg oral tab 1 tab 2 times per day [Active]; amiodarone 200 mg Oral tab 1 tab ca1 once daily [Active]; - PMHx: 15:14 Anxiety; Atrial Fib; Bipolar disorder; Chronic pain; COPD; esophageal varices; ca1 Hepatitis; HIV; Hypertension; Migraines; Panic Attacks; - PSHx: 15:14 Hernia repair; ca1 - Immunization history:: Flu vaccine is up to date. - Social history:: Smoking status: Patient reports the use of cigarette tobacco products, denies chronic smoking, but will smoke occasionally. Vital Signs: 15:11 BP 150 / 72; Pulse 64; Resp 16 S; Temp 98.1(TE); Pulse Ox 99% on R/A; Weight 95.25 kg ca1 (R); Height 5 ft. 4 in. (162.56 cm) (R); Pain 10/10; 15:11 Body Mass Index 36.05 (95.25 kg, 162.56 cm) ca1 ED Course: 15:00 Patient arrived in ED. ag5 15:01 Lele Rahman DO is Private Physician. ag5 15:13 Triage completed. ca1 15:14 Arm band placed on left wrist. ca1 15:15 EKG completed in triage. Results shown to MD. ca1 Administered Medications: No medications were administered Outcome: 16:53 Patient left the ED. ca1 Signatures: Lucrecia Gallardo, RN RN ca1 Mary Urbina ag5
[2020-07-13 17:21] VITALS: BP 150/72; TEMP 98.1; O2SAT 99
== END 2020-07-13 16:53 | disposition left against medical advice (07) ==
LOC: ER 14:58
DX: Z53.21 Procedure and treatment not carried out due to patient leaving prior to being seen by health care provider (principal)
CPT/HCPCS: 99281

== ENCOUNTER 2020-07-25 13:24 | Emergency (ER) | payer OTHER ==
--- OUTSIDE RECORDS SUMMARY | 2020-07-25 13:28 | XMS REPORT | Continuity of Care Document ---
:1955 Author Organization [facility] t Address [address] [place] [address] Care Team Providers Name Role Phone Asked, Pcp Primary Care Physician Unavailable Luisana Maharaj NP Attending Clinician Tori JENKINS, P. Attending Clinician Doctor Unassigned, Name Attending Clinician Unavailable Yazmin JENKINS Attending Clinician Clark SANCHEZ Attending Clinician Unavailable Quinn JENKINS, Y.H. Attending Clinician Maren JENKINS Attending Clinician Michael Pinon MD Attending Clinician Shaheed Catalan Attending Clinician Meli SANCHEZ Attending Clinician Unavailable Mario Tapia MD Attending Clinician Nahum SANCHEZ Attending Clinician Unavailable Curt Mitchell MD Attending Clinician DO SYL Attending Clinician Unavailable YAZMIN Admitting Clinician Unavailable DO SYL Admitting Clinician Unavailable Payers Payer Name Policy Type Policy Effective Date Expiration Date Sour ce Number UHC MEDICAREUHC DUAL [id number] 2019 [place] COMPLETE 00:00:00 Yarsani [id number] 2019- PresentHMO [facility] MEDICAIDUNITEDHC [id number] 2019 [place] COMM STAR+ 00:00:00 Yarsani [id number] 2019- PresentHMO Problems Condition Condition Condition Status Onset Resolution Last Treating Co mments Source Name Details Category Date Date Treatment Clinician Date Food Food Disease Active 2019-05 [place] intoleranc intoleranc 2-04 Me thodi e in adult e in adult 00:00: st 00 S/p S/p Disease Active [place] reverse reverse 10-19 Methodi 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:00: [...] Stomach [place] hoxazole ty to Comments) 2-04 pain Metho di -Trimeth adverse 00:00: st oprim reaction 00 s to drug Butorpha Propensi Active Hallucinatio 2019-05 [place] nol ty to ns 2-04 Methodi adverse 00:00: st reaction 00 s to drug Metoclop Propensi Active Andraeto n ramide ty to 5-04 Methodi Hcl adverse 00:00: st reaction 00 s to drug Family History Family Member Diagnosis Comments Start Date Stop Date Source Natural father Hypertension Derrick Jean Natural father Kidney disease Andreato n Yarsani Social History Social Habit Start Date Stop Date Quantity Comments Source History of tobacco Current smoker Juan Luis parker Yarsani use Sex Assigned At [facility] ethodist Exposure to Not sure [place] Metho dist SARS-CoV-2 (event) Cigarettes smoked 2020-06-23 2020-06-23 Meza Yarsani current (pack per 00:00:00 00:00:00 day) - Reported Tobacco use and 2020-06-23 2020-06-23 Never used [facility] ethodist exposure 00:00:00 00:00:00 Alcohol intake 2020-06-23 2020-06-23 Current drinker Porsha on Yarsani 00:00:00 00:00:00 of alcohol (finding) Alcohol Comment 2016-09-23 2016-09-23 rare Meza M ethodist 00:00:00 00:00:00 Smoking Status Start Date Stop Date Source Former smoker 2020-06-23 00:00:00 2020-06-23 00:00:00 Derrick Yarsani Medications Ordered Filled Start Stop Current Ordering Indication Dosage Frequency Signature Comments Components Source Medication Medication Date Date Medication? Clinician (SIG) Name Name lisinopril Yes 40mg Q.5D Take 40 mg [place] (PRINIVIL,Z 2-01 by mouth 2 Me thodi ESTRIL) 40 10:27: (two) st mg tablet 19 times a day. metoprolol Yes 100mg Q.5D Take 100 [place] tartrate 2-01 mg by Methodi (LOPRESSOR) 10:27: mouth 2 st 100 mg 19 (two) tablet times a day. amLODIPine Yes 10mg QD Take 10 mg [place] (NORVASC) 2-01 by mouth Method i 10 mg 10:27: daily. st tablet 19 LORAZepam Yes 2mg QD Take 2 mg [place] (ATIVAN) 2 2-01 by mouth Metho di MG tablet 10:27: nightly as st 19 needed for anxiety. esomeprazol Yes 40mg Q.5D Take 40 mg Meza e (NexIUM) 2-01 by mouth 2 Met hodi 40 MG 10:27: (two) st capsule 19 times a day. clobetasol Yes 1{appli Q.5D Apply 1 [place] (TEMOVATE) 2-01 cation} applicatio Methodi 0.05 % 10:27: n st ointment 19 topically 2 (two) times a day. (affected area in groin) hydrALAZINE Yes 50mg QD Take 50 mg Meza (APRESOLINE 2-01 by mouth Meth jason ) 50 MG 10:27: nightly. st tablet 19 busPIRone 0 Yes 20mg QD Take 20 mg [place] (BUSPAR) 10 2-01 by mouth Meth jason MG tablet 10:27: every st 19 morning. busPIRone 0 Yes 20mg QD Take 20 mg [place] (BUSPAR) 10 2-01 by mouth Meth jason MG tablet 10:27: nightly. st 19 mirtazapine Yes 15mg QD Take 15 mg Meza [...] 10mg QD Take 10 mg Meza (SINGULAIR) 201 by mouth Meth jason 10 mg 10:27: nightly. st tablet 19 sertraline 2019-05 Yes 200mg QD Take 200 [place] (ZOLOFT) 2-12 mg by Methodi 100 MG 13:39: mouth st tablet 23 daily. pantoprazol 2019-05 No 40mg Q.5D Take 1 [place] [...] (six) hours for 30 days. ipratropium 2019-05- No 3mL Q.25D Take 3 mL Meza -albuteroL 07-04 by [place] (DUO-NEB) 00:00: 23:59 nebulizati s t 0.5-2.5 00 :00 on every 4 mg/3 mL (four) nebulizer hours while awake for 30 days. budesonide 2019-05 No Simple .5mg Q.5D Take 2 mL [place] (PULMICORT) 07-04 chronic (0.5 mg M ethodi 0.5 mg/2 mL 00:00: 23:59 bronchitis total) by st nebulizer 00 :00 (HCC) nebulizati solution on 2 (two) times a day for [address] of symbicort. apixaban 2019-05 No 5mg Q.5D Take 1 [place] (ELIQUIS) 5 07-04 tablet (5 Me thodi mg tablet 00:00: 23:59 mg total) st 00 :00 by mouth 2 (two) times a day for 30 days. amIODarone 2019-05 No 200mg QD Take 1 [place] (PACERONE) 07-04 tablet Method i 200 MG 00:00: 23:59 ([address] tablet 00 :00 total) by mouth daily for 30 days. acetaminoph 2019-05- No acute pain 1{tbl} Q6H Take 1 [place] en-codeine 07-04 tablet by Met loredo (TYLENOL [...] methocarbam 2019-05- No 1000mg Q.25D Take 2 [place] oL 07-04 tablets Methodi (ROBAXIN) 00:00: 23:59 (1,[address] 500 MG 00 :00 total) by tablet mouth 4 (four) times a day for 7 days. ARIPiprazol 2019-05- No 5mg Take 1 [place] (ABILIFY) 2- 12-12 tablet (5 Me thodi 5 MG tablet 00:00: 00:00 mg total) st 00 :00 by mouth once for 1 dose. apixaban 2019-05- No 5mg Q.5D Take 1 [place] (ELIQUIS) 5 2- 12-12 tablet (5 Me thodi mg tablet 00:00: 00:00 mg total) st 00 :00 by mouth 2 (two) times a day. naloxone 4 2019-05 Yes 1{spray 1 spray [place] mg/actuatio 2-10 } into each Met hodi n 00:00: nostril st spray,non-a 00 once as erosol needed (breathing less than 8 per minute or inability to arouse) for up to 2 doses. triamterene 2019-05- No 1{tbl} QD Take 1 [place] -hydrochlor 204-26 tablet by Me thodi othiazid 16:16: 00:[address] (MAXZIDE-25 20 :00 daily. ) 37.5-25 mg per tablet ARIPiprazol 2019-05- No 5mg Take 5 mg Meza e (ABILIFY) 06-2604 by mouth. Me thodi 5 MG tablet [...] Date Status Commen ts Source Name Name PFIZER COVID-19 MRNA 2020-07-23 Completed [place] VACCINATION 00:00:00 Yarsani PFIZER COVID-19 MRNA 2020-07-02 Completed [place] VACCINATION 00:00:00 Yarsani Vital Signs Vital Name Observation Time Observation Value Comments Source Systolic blood 2020-06-23 10:22:00 137 mm[Hg] Andreato n Yarsani pressure Diastolic blood 2020-06-23 10:22:00 82 mm[Hg] [place] Y[place]ani pressure Heart rate 2020-06-23 10:22:00 67 /min Derrick Jean Body temperature 2020-06-23 10:22:00 36.11 Amina Andrea earnestine Yarsani Respiratory rate 2020-06-23 10:22:00 17 /min Andrea Eganist Body height 2020-06-23 10:22:00 162.6 cm Derrick Jean Body weight 2020-06-23 10:22:00 95.709 kg Derrick Jean BMI 2020-06-23 10:22:00 36.22 kg/m2 Derrick Jean Oxygen saturation in 2020-06-23 10:22:00 99 /min Derrick Jean Arterial blood by Pulse oximetry Procedures Procedure Date / Time Performing Clinician Source Performed [id number] 2020-05-07 00:00:00 ProviderRochelle BASIC METABOLIC PANEL 2020-05-02 09:08:00 Pau Ott HC COMPLETE BLD COUNT 2020-05-02 09:08:00 Pau Ott W/AUTO DIFF MAGNESIUM LEVEL 2020-05-02 09:08:00 Pau Ott Meth odist ESTIMATED GFR 2020-05-02 09:08:00 Eliseo Arce Meth odnadege CBC HEMOGRAM 2020-05-01 05:20:00 Idalmis Montilla Met jose BASIC METABOLIC PANEL 2020-05-01 04:00:00 Idalmis Montilla on Yarsani ESTIMATED GFR 2020-05-01 04:00:00 Idalmis Montilla [place] HEPATIC FUNCTION PANEL 2020-05-01 04:00:00 Idalmis Montilla Yarsani THYROID STIMULATING 2020-05-01 04:00:00 Idalmis Montilla HORMONE US DUPLEX VENOUS UPPER 2020-04-30 17:36:00 Del Ching Jurado EXTREMITY BILATERAL XR CHEST 2 VW 2020-04-30 16:18:36 Pau Ott Meth odist MIDLINE INSERTION ATTEMPT 2020-04-30 11:14:34 Nicole Daileyist - UNSUCCESSFUL XR ABDOMEN 1 VW PORTABLE 2020-04-30 09:45:00 Gracie Narayan ECG 12-LEAD 2020-04-30 09:06:58 TruPau Derrick Meth odist AK AN ELECTIVE 2020-04-28 14:57:57 Carlee Malloy Met hodist ENDOTRACHEAL AIRWAY POC GLUCOSE 2020-04-28 09:01:00 Eliseo Arce Meth odist SURGICAL PATHOLOGY REQUEST 2020-04-28 08:27:00 Eliseo Arce Yarsani BASIC METABOLIC PANEL 2020-04-28 02:11:00 Luis Gonzalez HC COMPLETE BLD COUNT 2020-04-28 02:11:00 Luis Gonzalez W/AUTO DIFF MAGNESIUM LEVEL 2020-04-28 02:11:00 Luis Gonzalez PHOSPHORUS LEVEL 2020-04-28 02:11:00 Luis Gonzalez on Yarsani PROTHROMBIN TIME WITH INR 2020-04-28 02:11:00 Grabiel Gonzalez PARTIAL THROMBOPLASTIN 2020-04-28 02:11:00 Luis Gonzalez TIME (PTT) ESTIMATED GFR 2020-04-28 02:11:00 Eliseo Arce TYPE AND SCREEN 2020-04-28 02:11:00 Eliseo Arce odist POC GLUCOSE 2020-04-27 23:38:00 Eliseo Arce Meth odist POC GLUCOSE 2020-04-27 20:14:00 Eliseo Arce odnadege TTE COMPLETE, WO CONTRAST, 2020-04-27 15:00:00 Nieves Hyde W DOPPLER ([id number]) POC GLUCOSE 2020-04-27 12:30:00 Eliseo Arce Meth odist BASIC METABOLIC PANEL 2020-04-27 06:34:00 Eliseo Arce Yarsani ESTIMATED GFR 2020-04-27 06:34:00 Eliseo Arce Meth odist POC GLUCOSE 2020-04-26 21:18:00 Eliseo Arce Meth odist ECG 12-LEAD 2020-04-26 20:24:31 Nieves Hyde Met jose COVID-19 QUALITATIVE PCR 2020-04-26 15:44:00 Carlos Sonbarbara Meza Yarsani HC COMPLETE BLD COUNT 2020-04-26 03:05:00 Carlos Luiskarolina Meza Yarsani W/AUTO DIFF BASIC METABOLIC PANEL 2020-04-26 03:05:00 Carlos Luiskarolina Meza Yarsani MAGNESIUM LEVEL 2020-04-26 03:05:00 Luis Gonzalezto n Yarsani PHOSPHORUS LEVEL 2020-04-26 03:05:00 Luis Gonzalez on Yarsani CD 4 SUBSET 2020-04-26 03:05:00 Eliseo Arce Meth odist ESTIMATED GFR 2020-04-26 03:05:00 Eliseo Arce Meth odnadege MISCELLANEOUS REFERRAL 2020-04-26 03:05:00 Eliseo Arce on Yarsani TEST POTASSIUM LEVEL 2020-04-25 21:04:00 Eliseo Arce Meth odnadege HC COMPLETE BLD COUNT 2020-04-25 18:51:00 Carlos Luiskarolina Meza Yarsani W/AUTO DIFF BASIC METABOLIC PANEL 2020-04-25 18:51:00 Carlos Luiskarolina Meza Yarsani MAGNESIUM LEVEL 2020-04-25 18:51:00 Luis Gonzalezto n Yarsani PHOSPHORUS LEVEL 2020-04-25 18:51:00 Luis Gonzalez on Yarsani ESTIMATED GFR 2020-04-25 18:51:00 Eliseo Arce Meth odist FL ESOPHAGRAM DOUBLE 2020-04-25 11:31:21 Eliseo Arce Yarsani CONTRAST CT CHEST WO CONTRAST 2020-04-21 08:15:34 Tu, Geraldo parker Yarsani ABDOMEN WO CONTRAST PELVIS WO CONTRAST HC COMPLETE BLD COUNT 2020-04-21 07:22:00 Tu, Geraldo Jean W/AUTO DIFF COMPREHENSIVE METABOLIC 2020-04-21 07:22:00 Tu, Geraldo Jean PANEL LIPASE LEVEL 2020-04-21 07:22:00 Tu, Geraldo Jean LACTIC ACID LEVEL, SEPSIS 2020-04-21 07:22:00 Geraldo Tapia - NOW AND REPEAT 2X EVERY 3 HOURS ESTIMATED GFR 2020-04-21 07:22:00 Geraldo Tapia Plan of Care Planned Activity Planned Date Details Comments Source Future Scheduled 2019-12-22 INFLUENZA VACCINE [place] Yarsani Test 00:00:00 [code = INFLUENZA VACCINE] Future Scheduled 2006-01-22 BREAST CANCER [place] Me thodist Test 00:00:00 SCREENING [code = BREAST CANCER SCREENING] Future Scheduled 2006-01-22 COLONOSCOPY SCREENING [place] Yarsani Test 00:00:00 [code = COLONOSCOPY SCREENING] Future Scheduled 2006-01-22 SHINGLES VACCINES [place] Yarsani Test 00:00:00 (#1) [code = SHINGLES VACCINES (#1)] Future Scheduled 1977-01-22 Screening for [place] Me thodist Test 00:00:00 malignant neoplasm of cervix (procedure) [code = 557727271] Future Scheduled 1966-01-22 DIABETES: RETINAL EYE [place] Yarsani Test 00:00:00 EXAM [code = DIABETES: RETINAL EYE EXAM] Future Scheduled 1966-01-22 DIABETIC FOOT EXAM [place] Yarsani Test 00:00:00 [code = DIABETIC FOOT EXAM] Encounters Start End Encounter Admission Attending Care Care Encounter Source Date/Time Date/Time Type Type Clinicians Facility Department ID 2020-07-23 2020-07-23 Outpatient ELENANARCISA [facility] [id number] [place] 00:00:00 00:00:[address] 2020-07-14 2020-07-14 Orders Doctor CHRISTENSEN [id number] 00:00:00 00:00:00 Only Unassigned, JACKELINE [id number] Painter [facility] [id number] 2020-07-02 2020-07-02 Outpatient [facility] [id number] [place] 00:00:00 00:00:[address] 2020-06-23 2020-06-23 Outpatient [facility] [id number] [place] 00:00:00 00:00:00 RAY [address] 2020-04-25 2020-05-03 Inpatient [facility] [id number] [place] 00:00:00 00:00:00 RAY [address] 2020-04-25 2020-04-25 Outpatient YAZMIN [facility] [id number] [place] 00:00:00 00:00:00 RAY [address] 2020-04-25 2020-04-25 Outpatient YAZMIN [facility] [id number] [place] 00:00:00 00:00:00 RAY [address] 2020-04-21 2020-04-21 Emergency TU, YEN-TE [facility] [id number] [place] 00:00:00 00:00:[address] Results Test Description Test Time Test Comments Results Result Comments Source Miscellaneous referral test 2020-05-09 15:24:58 Test Item Value Reference Range Interpretation Comme nts Misc test name (test HIV-1 RNA QUAL PCR code = 2566) Mis test result (test see note Human Immunodeficiency Virus 1 code = 1730) (HIV-1) by Qual itative Coin Machine Mechanic-M ediated Amplification ( TMA) ARUP test code 1988647 H IV-1 by Qualitative TMA See Note [...] HIV-RNA Qualita tive Assay (Gen-Probe). Test performed by:[employer] [place] [address] KYLE (test code = KYLE) HIVQL - HIV-1 RNA, Qualitative TMA (FROZEN)ARUP Test Code: 1577554Mkhtbp: plasma [place] MethodistBasic metabolic [id number] 11:45:54 Test Item Value Reference Range Interpretation Comments Sodium (test code = 138 See_Comment [Automa arpit message] 2951-2) The system [employer] generated this result transmit arpit reference range : 135 - 148 mEq/L. Th e reference range was not used to interpret this result as normal/abnormal . Potassium (test code = 3.6 See_Comment [Aut omated message] 0873-3) The system [employer] generated this result transmit arpit reference range : 3.5 - 5.0 mEq/L. Th e reference range was not used to interpret this result as normal/abnormal . Chloride (test code = 99 See_Comment [Auto mated message] 2074-0) The system [employer] generated this result transmit arpit reference range : 98 - 112 mEq/L. Th e reference range was not used to interpret this result as normal/abnormal . CO2 (test code = 26 See_Comment [Automated message] 2028-01) The system [employer] generated this result transmit arpit reference range : 24 - 31 mEq/L. The reference range was not used to interpret this result as normal/abnormal . Anion gap (test code = 13@ANIO See_Comment [Aut omated message] 29276-4) The system [employer] generated this result transmit arpit reference range : 7 - 15 mEq/L. The reference range was not used to interpret this result as normal/abnormal . BUN (test code = 17 mg/dL 8-23 3094-0) Creatinine (test code = 1.11 mg/dL 0.5-0.9 H 2160-0) Glucose (test code = 128 mg/dL 65-99 H 2345-7) Calcium (test code = 8.9 mg/dL 8.8-10.2 31675-6) Lab Interpretation Abnormal (test code = 46087-6) Derrick MethodistMagnesium [id number] 11:45:54 Test Item Value Reference Range Interpretation Comments Magnesium (test code = 48724-5) 1.9 mg/dL 1.6-2.4 [place] MethodistEstimated [id number] 11:45:54 Test Item Value Reference Range Interpretation Comments Estimated GFR (test 52 mL/min/1.73 m2 Maria Elena grubbs Units code = 5488) InterpretationG 1 >=90 Aracely l or highG2 60-89 Mildly decrease dG3a 45-59 Mil dly to moderately decr lrhwiY5f 30-44 Moderately to s everely decreasedG4 15-29 Severe ly decreasedG5 <15 Kidney ramsey lureThe eGFR was calcul ated using the [facility] Kidney Disease Epidemiology Collaboration ( CKD-EPI) equation. Interpretation is based on recommendati ons of the [facility]-Kidn ey Disease Outcome s Quality Initiat bruno (NKF-KDOQI) pub lished in 2013. Lab Interpretation Abnormal (test code = 11404-6) Meza [facility] with platelet and fcptdffnldmg4716-06-99 11:11:36 Test Item Value Reference Range Interpretation Comments WBC (test code = 6.33 See_Comment [Automated message] 63926-7) The system [employer] generated this result transmit arpit reference range : 4.50 - 11.00 k/ uL. The reference r abbey was not used to interpret this result as normal/abnormal . RBC (test code = 4.23 m/uL 4.2-5.5 45262-7) HGB (test code = 718-7) 10.3 g/dL 12-16 L HCT (test code = 4544-3) 36.3 % 37-47 L MCV (test code = 787-2) 85.8 fL 82-100 MCH (test code = 785-6) 24.3 pg 27-34 L MCHC (test code = 786-4) 28.4 g/dL 31-37 L RDW - SD (test code = 52.8 fL 37-55 58876-7) MPV (test code = 9.8 fL 8.8-13.2 79980-5) Platelet count (test 249 See_Comment [Autom ated message] code = 46527-2) The system [employer] [facility] generated this result transmit arpit reference range : 150 - 400 k/uL. The reference range was not used to interpret this result as normal/abnormal . Nucleated RBC (test code 0.50 See_Comment [A utomated message] = 42334-6) The system [employer] generated this result transmit arpit reference range : /100 WBC. The reference range was not used to interpret this result as normal/abnormal . Neutrophils (test code = 71.1 % 39-69 H 60401-2) Lymphocytes (test code = 14.8 % 25-45 L 30213-8) Monocytes (test code = 9.8 % 0-10 89994-0) Eosinophils (test code = 3.0 % 0-5 41960-1) Basophils (test code = 0.5 % 0-1 34346-8) Immature granulocytes 0.8 % 0-1 "Immat ure (test code = 88753-7) granul ocytes" (promyelocytes, myelocytes, metamyelocytes) Lab Interpretation (test Abnormal code = 74146-5) Derrick MethodistThyroid stimulating spdvsvs4615-60-69 07:24:57 Test Item Value Reference Range Interpretation Comments TSH (test code = 3.83 See_Comment [Automated message] The 3016-3) system which ge nerated this result transmit arpit reference range : 0.27 - 4.20 uIU/mL. Th e reference range was not u sed to interpret this result as normal/abnormal . Meza MethodistHepatic function [id number] 07:18:42 Test Item Value Reference Range Interpretation Comments Albumin (test code = 2.8 g/dL 3.5-5 L 1751-7) Total bilirubin (test 0.5 mg/dL 0-1.2 code = 1974-) Bilirubin direct (test <0.2 0-0.3 code = 7) Alkaline phosphatase 72 U/L 35-104 (test code = 6768-6) Protein (test code = 6.3 g/dL 6.3-8.3 -[place] n 2885-2) 4.6-7.0 g /dL1 week 4.4-7.6 g/dL 7 months-1year 5.1-7.3 g/dL 1-2 years 5.6-7.5 g/dL>3 years 6.0-8.0 g/qK78-287 6.3-8. 3 g/dL ALT (test code = 1742-6) 70 U/L 5-50 H AST (test code = 1920-8) 59 U/L 10-35 H Lab Interpretation (test Abnormal code = 19130-5) [facility] [id number] 06:45:47 Test Item Value Reference Range Interpretation Comments WBC (test code = 5.66 See_Comment [Automated message] 30678-4) The system whic h generated this result transmit arpit reference range : 4.50 - 11.00 k/ uL. The reference r abbey was not used to interpret this result as normal/abnormal . RBC (test code = 4.04 m/uL 4.2-5.5 L 50075-7) HGB (test code = 718-7) 10.1 g/dL 12-16 L HCT (test code = 4544-3) 35.5 % 37-47 L MCV (test code = 787-2) 87.9 fL 82-100 MCH (test code = 785-6) 25.0 pg 27-34 L MCHC (test code = 786-4) 28.5 g/dL 31-37 L RDW - SD (test code = 55.4 fL 37-55 H 71548-4) MPV (test code = 10.1 fL 8.8-13.2 98146-1) Platelet count (test 190 See_Comment [Autom ated message] code = 02735-5) The system [facility] [facility] generated this result transmit arpit reference range : 150 - 400 k/uL. The reference range was not used to interpret this result as normal/abnormal . Nucleated RBC (test code 0.00 See_Comment [A utomated message] = 24529-5) The system [employer] generated this result transmit arpit reference range : /100 WBC. The reference range was not used to interpret this result as normal/abnormal . Lab Interpretation (test Abnormal code = 05229-1) [facility] duplex venous upper qbimjquiy0612-89-74 22:57:00Interface, Radiology Results In - 04/30/2020 10:58 PM LOAN OPERATIONS MANAGER Vascular Ultrasound Laboratory Upper Extremity Venous [address] [place] [address] Pat.Name: LIO WATTS Pat.ID: [id number] .Date: 04/30/2020 Refer.MD: ELISEO ARCE MD Exam Time: 5:04:00 PM Study Type:UE Venous Age: 9 1955,65Y Sex: FEMALE Sonogrphr: IBIS Espinosa RCS Pat. Stat.:Inpatient Room: [facility] WT20 2020 Tape Vol: EDGAR, CPT - 4: 32185 Echo Event ID:[id number] Order ID: [id number] Reason for Study:Arm swelling or pain, DVT [...] distal upper arm due to dressing and bandage.AK ELIMINARY FINDINGS1. Total superficial vein thrombosis of the right basilic vein.2. No evidence of deep vein thrombosis of the visualized veins.*Preliminary result reported to ASHLEY Santos @ 0452 on 04/30/20.PHYSICIAN INTERPRETATION Venous examination of the both upper extremities and neck demonstratednoevidence of deep venous thrombosis. Total superficial vein thrombosis of the right basilic vein.---- FINDINGS: Sig vida 04/30/2020 10:57PMFrancis Cabral MD, RPVIHouston MethodistXR Chest 2 Vw 2020-04-30 16:21:01Hm Interface, Radiology Results Incoming - 04/30/2020 4:24 PM CSTEXAMINATION: XR CHEST 2 VWCLINICAL HISTORY: amio gttCOMPARISON: None.FINDINGS:Two views of the chest demonstrate mild cardiomegaly. Pulmonary vasculature is within normal limits.No consolidation or pleural effusion is seen. There is no evidence of pneumothorax. Low lung volume is noted.Bilateral shoulders arthroplasty changes are noted.IMPRESSION:No radiographic evidence of acute cardiopulmonary process or active disease of the chest.[id number] MethodistSurgical pathology [id number] 14:07:52 Test Item Value Reference Range Interpretation Comments Case number (test code = [id number]) Surgical pathology See link below for report (test code = PDF Lab Report 225) Result status (test code This is Final Report = [id number]) for [id number] Derrick MethodnadegeECG 12 efmu9848-46-82 12:40:32 Test Item Value Reference Range Interpretation [...] abnormality in Lateral leads- Derrick MethodistMidline Unsuccessful [id number] 11:14:34ANicole zhang RN 04/30/2020 11:25 AMMidline Unsuccessful [...] place a PIV g.20 in lower arm .Meza MethodistXR Abdomen 1 Vw Auejicsz7197-84-05 10:20:14 [facility], Radiology Results Incoming - 04/30/2020 10:23 AM CSTEXAMINATION: XR ABDOMEN 1 VW PORTABLECLINICAL HISTORY: Abdominal pain post opCOMPARISON: No priorIMPRESSION:1.Residual barium within the colon throughout. No small bowel obstruction noted.[facility]-[id number] XxyhnyzhaXmfrhz4992-62-01 14:57:57Carlee Malloy MD 04/28/2020 2:59 PMAirwayPerformed by: Carlee Malloy MDAuthorized by: Carlee Malloy MD Location: ORUrgency: ElectiveDifficult Airway: No Anesthesiologist: Kvng Malloy MDResident/MOTOR VEHICLE EMISSIONS INSPECTOR/AA: Allan Morocho, DOPerformed by: resident/MOTOR VEHICLE EMISSIONS INSPECTOR/AAPreoxygenated nyyl312% O2: Yes C- spine Precautions Maintained Throughout: [...] of Attempts at Approach: 1Houston MethodistCD 4 qxcpud1094-35-98 10:47:52 Test Item Value Reference Range Interpretation Comments CD4% (test code = 47 % 37-57 8123-2) CD4 absolute count 426 ul 488-1340 L (test code = 57174-0) CD4 subset (test code See link below Case Number: = [id number]) for PDF Lab [id number] Report Lab Interpretation Abnormal (test code = 29249-3) Derrick EganistPOC [id number] 09:03:42 Test Item Value Reference Range Interpretation Comments POC glucose (test code 117 mg/dL 65-99 H Opera tor Name: Zenon = 06472-2) JunellDevice ID : [id number] able: [facility], 1928–1983 Notified judicial administrative assistant Interpretation Abnormal (test code = 22524-0) Derrick MethodistType and [id number] 03:57:00 Test Item Value Reference Range Interpretation Comments ABO grouping (test code = 883-9) A Rh type (test code = 15880-7) POS Antibody screen (gel) (test code = NEG 890-4) Meza MethodnadegePhosphorus [id number] 03:27:52 Test Item Value Reference Range Interpretation Comments Phosphorus (test code = 2777-1) 3.2 mg/dL 2.4-4.5 Derrick JeanPartial thromboplastin time, [id number] 03:22:15 Test Item Value Reference Range Interpretation Comments PTT (test code = 28.3 See_[place] [address]-1) unfractionated heparin is61.0-112.0 se conds which corresponds to Anti-Xa0.3-0.7 U/ml. [Automat ed message] The system [employer] generated this result tra nsmitted reference range : 23.0 - 36.0 sec. The refere nce range was not used to int erpret this result as aracely l/abnormal. [place] MethodistProthrombin time with [id number] 03:21:36 Test Item Value Reference Range Interpretation Comments Prothrombin time (test 13.6 See_Comment [Aut omated message] The code = 5902-2) system which generated this result tra nsmitted reference range : 11.5 - 14.5 sec. The r eference range was not u sed to interpret this result as normal/abnormal . INR (test code = 1.0 The Interna tional 97578-8) Normalized Rati o (INR) is a therapeutic m onitoring tool for patien ts who are stable on oral anticoagulant t herapy. An INR of 2.0-3.0 is suggested for d eep vein thrombosis/pulm onary embolism. [place] MethodistTransthoracic Echocardiogram Complete, (w Contrast, Strain and 3D if needed)2020-04-27 18:20:00Interface, Radiology Results In - 04/27/2020 6:21 PM [facility] Echocardiography Report [id number]Name: LIO WATTS Marta.ID: [id number].Date: 04/27/2020 Refer.MD: ELISEO ARCE MD Exam Time: 2:21:00 PM Study Type:Routine Echo Height: 64in Weight: 213lb BSA: 2.01 m2 Age: 9 1955,65Y Sex: FEMALE BP: 128/89 HR: 102 bpm Sonogrphr: SANKET Perkins Pat. Stat.:Inpatient Room: [facility] Study Status:Final Echo Event ID:[id number] Order ID: [id number] Reason for Study:Atrial FibrillationHistory / Clinical:Hypertension Procedures: [...] estimate PA systolic pressure. MEASUREMENTS: 2DParasternal Long Dexter Ao An 2.2 cm LVPWd 1 cm [...] SVi 34 ml/m2 LVOT CI 3.1 l/m/m2 [facility] 04/27/2020 06:20 PMBobby Contreras JigneshistCOVID-19 qualitative [id number] 21:42:22 Test Item Value Reference Range Interpretation Comments Interpretation (test Negative results do code = 7370797) not preclude 2019-nCoV infection and should not be used as the sole basis for treatment or other patient management decisions. Negative results must be combined with clinical observations, patient history, and epidemiological information. COVID-19 qualitative Not-Detected Not-Detected PCR result (test code = 43004-9) COVID-19 qualitative See link below for C ase Number: PCR (test code = PDF Lab Report [id number]) Meza YarsaniPotassium [id number] 21:28:10 Test Item Value Reference Range Interpretation Comments Potassium (test code = 3.3 See_Comment L [Aut omated message] 2823-3) The system [employer] generated this result transmitted ref erence range: 3.5 - 5. 0 mEq/L. The refe rence range was not u sed to interpret this result as normal/abnor mal. Lab Interpretation (test Abnormal code = 06552-6) [facility] Esophagram Double [id number] 12:07:12Hm Interface, Radiology Results - 04/25/2020 12:10 PM [...] hiatal hernia. There was mild spontaneous gastroesophageal reflux.[id number] MethodistCT Chest Wo Contrast Abdomen Wo Contrast Pelvis Wo [id number] 09:23:55Hm Interface, Radiology Results Incoming - 04/21/2020 [...] aorta.4.Additional chronic and incidental findings as detailed above.[facility]-[id number] and approved by vice president consulting services/fellow: Jenna Valenzuela M.D.I, Medhat Flowers Jr., M.D., personally reviewed the images and resident's/fellow's findings and agree with the final report.[place] [facility] at las vegasComprehensive metabolic [id number] 08:09:22 Test Item Value Reference Range Interpretation Comments Sodium (test code = 143 See_Comment [Automa arpit message] 2951-2) The system [employer] generated this result transmit arpit reference range : 135 - 148 mEq/L. Th e reference range was not used to interpret this result as normal/abnormal . Potassium (test code = 3.8 See_Comment [Aut omated message] 7213-3) The system [employer] generated this result transmit arpit reference range : 3.5 - 5.0 mEq/L. Th e reference range was not used to interpret this result as normal/abnormal . Chloride (test code = 107 See_Comment [Auto mated message] 0) The system [employer] generated this result transmit arpit reference range : 98 - 112 mEq/L. Th e reference range was not used to interpret this result as normal/abnormal . CO2 (test code = 26 See_Comment [Automated message] 2028-01) The system [employer] generated this result transmit arpit reference range : 24 - 31 mEq/L. The reference range was not used to interpret this result as normal/abnormal . Anion gap (test code = 10@ANIO See_Comment [Aut omated message] 69859-6) The system [employer] generated this result transmit arpit reference range : 7 - 15 mEq/L. The reference range was not used to interpret this result as normal/abnormal . BUN (test code = 18 mg/dL 8-23 3094-0) Creatinine (test code = 1.09 mg/dL 0.5-0.9 H 2160-0) Glucose (test code = 126 mg/dL 65-99 H 2345-7) Calcium (test code = 9.0 mg/dL 8.8-10.2 66862-6) Protein (test code = 6.7 g/dL 6.3-8.3 [...] 1975-2) Lab Interpretation Abnormal (test code = 81861-7) [place] MethodistLipase [id number] 08:09:22 Test Item Value Reference Range Interpretation Comments Lipase (test code = 3040-3) 22 U/L 13-60 [place] MethodistLactic acid level, SEPSIS - Now and repeat 2x every 3 hours 2020-04-21 08:09:20 Test Item Value Reference Range Interpretation Comments Lactic acid (test code = 35759-5) 1.2 mmol/L 0.5-2.2 [place] MethodistCHLAMYDIA, GC, TV,PCR, IN [id number] 15:38:00 Test Item Value Reference Range Interpretation Comments FT (test code = CHTR) Not detected (qualifier Not Detected N value) FT (test code = Not detected (qualifier Not Detected N NGONO) value) FT (test code = TRVG) Not detected (qualifier Not Detected N value) URINALYSIS WITH [id number] 10:57:00 Test Item Value Reference Range Interpretation Comments Color (test code = UCOLR) Dk. Yellow Clarity (test code = UCLAR) Hazy Glucose (test code = UGLUC) NEGATIVE NEGATIVE N Bilirubin (test code = UBILI) NEGATIVE NEGATIVE N Ketones (test code = UKET) NEGATIVE NEGATIVE N Specific Berry (test code = 1.025 1.005-1.030 A USPGR) [...]
[2020-07-25 15:34] LABS: Absolute Lymphocytes (CBC) 1.7 K/uL (0.7-4.9); Basophils % 0.7 % (0-1.3); Hematocrit 35.1 % (36.0-45.0); Lymphocytes % 23.2 % (15.3-44.8); MPV 7.7 fL (7.6-11.3); RBC Red Blood Cell Count 4.67 M/uL (3.86-4.86)
[2020-07-25] MEDS ORDERED: ONDANSETRON 4 MG/2 ML VIAL ONE (15:44)
[2020-07-25] MEDS ORDERED: NA CHLORIDE 0.9% 500 ML ONE (15:44)
[2020-07-25] MEDS ORDERED: MORPHINE 4 MG/ML SYR ONE ×2 (15:44→17:22)
[2020-07-25] MEDS ORDERED: METHYLPREDNISOLONE 125 MG INJ ONE (15:44)
[2020-07-25] MEDS ORDERED: FAMOTIDINE 20 MG/2 ML VIAL IV ONE (15:46)
[2020-07-25 16:00] LABS: Albumin 3.8 g/dL (3.4-5.0); Bilirubin Direct 0.1 mg/dL (0-0.2); Bilirubin Total 0.4 mg/dL (0.2-1.0); Potassium 3.8 mmol/L (3.5-5.1); Protein, Total 8.2 g/dL (6.4-8.2)
--- NOTE | 2020-07-25 16:10 | RAD REPORT ---
EXAM DESCRIPTION: CT - Abdomen Pelvis W Contrast - 07/25/2020 3:44 pm CLINICAL HISTORY: Abdominal pain COMPARISON: May 2020 TECHNIQUE: Computed axial tomography of the abdomen pelvis was obtained. 100 cc Isovue-300 was admin istered intravenously. Oral contrast was not requested which limits evaluation of bowel. All CT scans are performed using dose optimization technique as appropriate and may include automated exposure control or mA/KV adjustment according to patient size. FINDINGS: Postsurgical changes of a hiatal hernia repair. The liver, spleen, pancreas, adrenals appear unremarkable. Bilateral renal cysts. There is no evidence of diverticulitis. Small umbilical hernia IMPRESSION: No acute abnormality is displayed.
--- NOTE | 2020-07-25 16:59 | ER ---
Nurse's Notes [facility] Name: Marjan Fleming Age: 65 yrs Sex: Female : 1955 Arrival Date: 07/25/2020 Time: 13:27 Bed 14 Private MD: Diagnosis: Abdominal and pelvic pain;Nausea Presentation: 07/25 13:46 Chief complaint: Patient states: "a couple of months ago I had a hernia repaired and on jd3 my check up everything was ok, but here today I felt a knot and it it hurting and making me really nauseous.". Coronavirus screen: At this time, the client does not indicate any symptoms associated with coronavirus-19. Ebola Screen: Patient negative for fever greater than or equal to 101.5 degrees Fahrenheit, and additional compatible Ebola Virus Disease symptoms. Initial Sepsis Screen: Does the patient meet any 2 criteria? No. Patient's initial sepsis screen is negative. Does the patient have a suspected source of infection? No. Patient's initial sepsis screen is negative. Risk Assessment: Do you want to hurt yourself or someone else? Patient reports no desire to harm self or others. Note [facility] Gallegos [phone]. Onset of symptoms was July 23, 2020. 13:46 Acuity: BLAYNE 3 jd3 13:46 Method Of Arrival: Ambulatory jd3 Historical: - Allergies: 13:50 Bactrim DS; jd3 13:50 Stadol; jd3 13:50 Fentanyl; jd3 13:50 butorphanol tartrate; jd3 13:50 metoclopramide HCl; jd3 13:50 sulfamethoxazole (bulk); jd3 13:50 TRIMETHOPRIM; jd3 - PMHx: 13:50 COPD; esophageal varices; HIV; Hypertension; Migraines; Chronic pain; Atrial Fib; jd3 Bipolar disorder; Anxiety; Hepatitis; Panic Attacks; - PSHx: 13:50 Hernia repair; jd3 - Immunization history:: Adult Immunizations up to date. - Social history:: Smoking status: Patient/guardian denies using tobacco, Stopped _ months ago 1. Screenin:00 Abuse screen: Denies threats or abuse. Denies injuries from another. Nutritional jl7 screening: No deficits noted. Tuberculosis screening: No symptoms or risk factors identified. Fall Risk IV access (20 points). Total Hauser Fall Scale indicates No Risk (0-24 pts). Assessment: 15:00 General: Appears in no apparent distress. uncomfortable, Behavior is calm, cooperative. jl7 Pain: Complains of pain in left upper quadrant Pain currently is 10 out of 10 on a pain scale. Neuro: Level of Consciousness is awake, alert, obeys commands, Oriented to person, place, time, situation. Cardiovascular: Patient's skin is warm and dry. Respiratory: Airway is patent Respiratory effort is even, unlabored, Respiratory pattern is regular, symmetrical. GI: Abdomen is round Bowel sounds present X 4 quads. Abdomen is tender to palpation in left upper quadrant Reports nausea. Derm: Skin is pink, warm \\T\\ dry. 16:00 Reassessment: Patient appears in no apparent distress at this time. Patient and/or jl7 family updated on plan of care and expected duration. Pain level reassessed. Patient is alert, oriented x 3, equal unlabored respirations, skin warm/dry/pink. 17:10 Reassessment: ERD at bedside discussing results and POC. jl7 17:15 Reassessment: VO receive for 4 mg Morphine IVP. jl7 Vital Signs: 13:50 BP 142 / 91; Pulse 62; Resp 17 S; Temp 97.9(TE); Pulse Ox 99% on R/A; Weight 95.71 kg jd3 (R); Height 5 ft. 4 in. (162.56 cm) (R); Pain 10/10; 15:45 BP 150 / 83; Pulse 61; Resp 14; Pulse Ox 95% ; jl7 17:00 BP 149 / 85; Pulse 62; Resp 17; Pulse Ox 96% ; jl7 13:50 Body Mass Index 36.22 (95.71 kg, 162.56 cm) jd3 ED Course: 13:27 Patient arrived in ED. as 13:48 Triage completed. jd3 13:50 Arm band placed on. jd3 14:43 Joey Jung MD is Attending Physician. kdr 15:00 Patient has correct armband on for positive identification. Placed in gown. Bed in low jl7 position. Call light in reach. Side rails up X 1. Pulse ox on. NIBP on. 15:05 Jesica Ramos RN is Primary Nurse. jl7 15:20 Initial lab(s) drawn, by me, sent to lab. Inserted saline lock: 20 gauge in right jl7 forearm, using aseptic technique. Blood collected. 15:43 CT Abd/Pelvis - IV Contrast Only In Process Unspecified. EDMS 18:17 No provider procedures requiring assistance completed. IV discontinued, intact, jl7 bleeding controlled, No redness/swelling at site. Pressure dressing applied. Administered Medications: 15:50 Drug: NS 0.9% 500 ml Route: IV; Rate: bolus; Site: right forearm; jl7 17:00 Follow up: Response: No adverse reaction; IV Status: Completed infusion; IV Intake: jl7 500ml 15:50 Drug: Zofran (Ondansetron) 4 mg Route: IVP; Site: right forearm; jl7 16:20 Follow up: Response: No adverse reaction; Nausea is decreased jl7 15:52 Drug: Pepcid 20 mg Route: IVP; Site: right forearm; jl7 16:20 Follow up: Response: No adverse reaction jl7 15:54 Drug: morphine 4 mg Route: IVP; Site: right forearm; jl7 16:20 Follow up: Response: No adverse reaction; Pain is decreased jl7 17:30 Drug: morphine 4 mg Route: IVP; Site: right forearm; jl7 18:00 Follow up: Response: No adverse reaction; Pain is decreased jl7 Intake: 17:00 IV: 500ml; Total: 500ml. jl7 Outcome: 16:59 Discharge ordered by . kdr 18:17 Discharged to home ambulatory, with family. jl7 18:17 Condition: stable 18:17 Discharge instructions given to patient, Instructed on discharge instructions, follow up and referral plans. medication usage, Demonstrated understanding of instructions, follow-up care, medications, Prescriptions given X 1. 18:17 Patient left the ED. jl7 Signatures: Dispatcher [employer] EDMS Joey Jung MD MD kdr Martinez, Amelia as Leal, Jahala RN RN jl7 Gerard Boston RN RN jd3
--- NOTE | 2020-07-25 16:59 | EDPHYS ---
Physician Documentation [facility] Name: Marjan Fleming Age: 65 yrs Sex: Female : 1955 Arrival Date: 07/25/2020 Time: 13:27 Bed 14 Private MD: ED Physician Joey Jung HPI: 07/25 16:05 This 65 yrs old Female presents to ER via Ambulatory with complaints of kdr Abdominal Pain, Nausea. 16:05 The patient presents to the emergency department with nausea, that is moderate, kdr diarrhea, abdominal pain, of the epigastric area and left upper quadrant, described as achy, crampy, and does not radiate. Onset: The symptoms/episode began/occurred gradually, 2 day(s) ago. Possible causes: Hernia. The symptoms are aggravated by Touching area The symptoms are alleviated by nothing. Associated signs and symptoms: Pertinent positives: abdominal pain, constipation, nausea, Pertinent negatives: anorexia, belching, diarrhea, dysuria, fever, flatulence, GI bleeding. Severity of symptoms: At their worst the symptoms were mild in the emergency department the symptoms are unchanged. The patient has not experienced similar symptoms in the past. The patient has not recently seen a physician, had hernia repair in [place] about two months ago. Historical: - Allergies: 13:50 Bactrim DS; jd3 13:50 Stadol; jd3 13:50 Fentanyl; jd3 13:50 butorphanol tartrate; jd3 13:50 metoclopramide HCl; jd3 13:50 sulfamethoxazole (bulk); jd3 13:50 TRIMETHOPRIM; jd3 - PMHx: 13:50 COPD; esophageal varices; HIV; Hypertension; Migraines; Chronic pain; Atrial Fib; jd3 Bipolar disorder; Anxiety; Hepatitis; Panic Attacks; - PSHx: 13:50 Hernia repair; jd3 - Immunization history:: Adult Immunizations up to date. - Social history:: Smoking status: Patient/guardian denies using tobacco, Stopped _ months ago 1. ROS: 16:05 Constitutional: Negative for fever, chills, and weight loss, Eyes: Negative for injury, kdr pain, redness, and discharge, ENT: Negative for injury, pain, and discharge, Neck: Negative for injury, pain, and swelling, Cardiovascular: Negative for chest pain, palpitations, and edema, Respiratory: Negative for shortness of breath, cough, wheezing, and pleuritic chest pain, Back: Negative for injury and pain, : Negative for injury, bleeding, discharge, and swelling, MS/Extremity: Negative for injury and deformity, Skin: Negative for injury, rash, and discoloration, Neuro: Negative for headache, weakness, numbness, tingling, and seizure activity. Psych: Negative for depression, anxiety, suicide ideation, homicidal ideation, and hallucinations, Allergy/Immunology: Negative for hives, rash, and allergies, Endocrine: Negative for neck swelling, polydipsia, polyuria, polyphagia, and marked weight changes, Hematologic/Lymphatic: Negative for swollen nodes, abnormal bleeding, and unusual bruising. 16:05 Abdomen/GI: Positive for abdominal pain, nausea, Negative for vomiting, diarrhea, abdominal cramps, abdominal distension, anorexia, dysphagia, hematemesis, black/tarry stool, rectal pain, rectal bleeding. Exam: 16:05 Constitutional: This is a well developed, well nourished patient who is awake, alert, kdr and in no acute distress. Head/Face: Normocephalic, atraumatic. Eyes: Pupils equal round and reactive to light, extra-ocular motions intact. Lids and lashes normal. Conjunctiva and sclera are non-icteric and not injected. Cornea within normal limits. Periorbital areas with no swelling, redness, or edema. Neck: Trachea midline, no thyromegaly or masses palpated, and no cervical lymphadenopathy. Supple, full range of motion without nuchal rigidity, or vertebral point tenderness. No Meningismus. Chest/axilla: Normal chest wall appearance and motion. Nontender with no deformity. No lesions are appreciated. Cardiovascular: Regular rate and rhythm with a normal S1 and S2. No gallops, murmurs, or rubs. Normal PMI, no JVD. No pulse deficits. Respiratory: Lungs have equal breath sounds bilaterally, clear to auscultation and percussion. No rales, rhonchi or wheezes noted. No increased work of breathing, no retractions or nasal flaring. Back: No spinal tenderness. No costovertebral tenderness. Full range of motion. Skin: Warm, dry with normal turgor. Normal color with no rashes, no lesions, and no evidence of cellulitis. MS/ Extremity: Pulses equal, no cyanosis. Neurovascular intact. Full, normal range of motion. Neuro: Awake and alert, GCS 15, oriented to person, place, time, and situation. Cranial nerves II-XII grossly intact. Motor strength 5/5 in all extremities. Sensory grossly intact. Cerebellar exam normal. Normal gait. Psych: Awake, alert, with orientation to person, place and time. Behavior, mood, and affect are within normal limits. 16:05 Abdomen/GI: Inspection: obese Bowel sounds: active, diminished, in all quadrants, Palpation: mild abdominal tenderness, in the right upper quadrant, mass, is not appreciated, rebound tenderness, is not appreciated, voluntary guarding, is not appreciated. Vital Signs: 13:50 BP 142 / 91; Pulse 62; Resp 17 S; Temp 97.9(TE); Pulse Ox 99% on R/A; Weight 95.71 kg jd3 (R); Height 5 ft. 4 in. (162.56 cm) (R); Pain 10/10; 15:45 BP 150 / 83; Pulse 61; Resp 14; Pulse Ox 95% ; jl7 17:00 BP 149 / 85; Pulse 62; Resp 17; Pulse Ox 96% ; jl7 13:50 Body Mass Index 36.22 (95.71 kg, 162.56 cm) jd3 MDM: 16:05 Data reviewed: vital signs, nurses notes, lab test result(s), radiologic studies. kdr Counseling: I had a detailed discussion with the patient and/or guardian regarding: the historical points, exam findings, and any diagnostic results supporting the discharge/admit diagnosis, lab results, radiology results, the need for outpatient follow up. 16:59 Patient medically screened. kdr 03 14:55 Order name: Basic Metabolic Panel kdr 07/25 14:55 Order name: CBC with Diff; Complete Time: 16:05 kdr 07/25 14:55 Order name: Hepatic Function; Complete Time: 16:05 kdr 07/25 14:55 Order name: Lipase; Complete Time: 16:05 kdr 07/25 14:56 Order name: Basic Metabolic Panel; Complete Time: 16:05 EDMS 03 15:04 Order name: CT Abd/Pelvis - IV Contrast Only; Complete Time: 16:57 kdr 07/25 14:55 Order name: IV Saline Lock; Complete Time: 15:33 kdr 07/25 14:55 Order name: Labs collected and sent; Complete Time: 15:33 kdr Administered Medications: 15:50 Drug: NS 0.9% 500 ml Route: IV; Rate: bolus; Site: right forearm; jl7 17:00 Follow up: Response: No adverse reaction; IV Status: Completed infusion; IV Intake: jl7 500ml 15:50 Drug: Zofran (Ondansetron) 4 mg Route: IVP; Site: right forearm; jl7 16:20 Follow up: Response: No adverse reaction; Nausea is decreased jl7 15:52 Drug: Pepcid 20 mg Route: IVP; Site: right forearm; jl7 16:20 Follow up: Response: No adverse reaction jl7 15:54 Drug: morphine 4 mg Route: IVP; Site: right forearm; jl7 16:20 Follow up: Response: No adverse reaction; Pain is decreased jl7 17:30 Drug: morphine 4 mg Route: IVP; Site: right forearm; jl7 18:00 Follow up: Response: No adverse reaction; Pain is decreased jl7 Disposition: 07/25/20 16:59 Discharged to Home. Impression: Abdominal and pelvic pain, Nausea. - Condition is Stable. - Discharge Instructions: Nausea and Vomiting, Adult, Uslw-ao-Epdr, Abdominal Pain, Adult, Pjwj-lb-Yqua. - Prescriptions for promethazine 25 mg Oral Tablet - take 1 tablet by ORAL route every 6 hours As needed; 20 tablet. - Medication Reconciliation Form, Thank You Letter form. - Follow up: Private Physician; When: 2 - 3 days; Reason: If symptoms return, Further diagnostic work-up, Recheck today's complaints, Continuance of care, Re-evaluation by your physician. - Problem is an acute exacerbation. - Symptoms have improved. Signatures: Dispatcher [employer] EDMS Joey Jung MD MD kdr Jesica Ramos RN RN jl7 Gerard Boston RN RN jd3 Corrections: (The following items were deleted from the chart) 18:17 16:59 07/25/2020 16:59 Discharged to Home. Impression: Abdominal and pelvic pain; jl7 Nausea. Condition is Stable. Forms are Medication Reconciliation Form, Thank You Letter, Antibiotic Education, Prescription Opioid Use. Follow up: Private Physician; When: 2 - 3 days; Reason: If symptoms return, Further diagnostic work-up, Recheck today's complaints, Continuance of care, Re-evaluation by your physician. Problem is an acute exacerbation. Symptoms have improved. kdr
[2020-07-25 23:00] VITALS: TEMP 97.9
[2020-07-25 23:03] VITALS: BP 149/85; O2SAT 96
== END 2020-07-25 18:17 | disposition home or self-care (01) ==
LOC: ER 13:24
DX: R11.0 Nausea (principal); I10 Essential (primary) hypertension; Z21 Asymptomatic human immunodeficiency virus [HIV] infection status; Z88.1 Allergy status to other antibiotic agents; Z88.2 Allergy status to sulfonamides; Z88.4 Allergy status to anesthetic agent; Z88.5 Allergy status to narcotic agent; Z88.8 Allergy status to other drugs, medicaments and biological substances; Z87.891 Personal history of nicotine dependence
CPT/HCPCS: 96361; 85025; 80048; 36415; 82565; 80076; 83690; 74177; 96375; 96374; 99284; Q9967; J7040; J2405; J2930

== ENCOUNTER 2020-07-29 12:27 | Emergency (ER) | payer OTHER ==
--- OUTSIDE RECORDS SUMMARY | 2020-07-29 12:30 | XMS REPORT | Continuity of Care Document ---
:1955 Author Organization [facility] t Address [address] [place] [address] Care Team Providers Name Role Phone YAZMIN Attending Clinician Unavailable TREMAYNE Attending Clinician Unavailable Doctor Unassigned, Name Attending Clinician Unavailable ZUNILDA Attending Clinician Unavailable SYL, Attending Clinician Unavailable YAZMIN Admitting Clinician Unavailable SYL, Admitting Clinician Unavailable Problems This patient has no known problems. Allergies, Adverse Reactions, Alerts This patient has no known allergies or adverse reactions. Medications This patient has no known medications. Procedures This patient has no known procedures. Encounters Start End Encounter Admission Attending Care Care Encounter Source Date/Time Date/Time Type Type Clinicians Facility Department ID 2020-07-28 2020-07-28 Outpatient YAZMIN [facility] [id number] [place] 00:00:00 00:00:00 RAY [address] [facility] 2020-07-23 2020-07-23 Outpatient TREMAYNE [facility] [id number] [place] 00:00:00 00:00:00 OMID [address] 2020-07-14 2020-07-14 Orders Doctor CHRISTENSEN [id number] 00:00:00 00:00:00 Only Unassigned, JACKELINE [id number] [place] [facility] [id number] 2020-07-02 2020-07-02 Outpatient [facility] [id number] [place] 00:00:00 00:00:[address] 2020-06-23 2020-06-23 Outpatient YAZMIN [facility] [id number] [place] 00:00:00 00:00:00 RAY [address] 2020-04-25 2020-05-03 Inpatient YAZMIN [facility] [id number] [place] 00:00:00 00:00:00 RAY [address] 2020-04-25 2020-04-25 Outpatient YAZMIN [facility] [id number] [place] 00:00:00 00:00:00 RAY [address] 2020-04-25 2020-04-25 Outpatient YAZMIN [facility] [id number] [place] 00:00:00 00:00:00 RAY [address] 2020-04-21 2020-04-21 Emergency TU, YEN-TE [facility] [id number] [place] 00:00:00 00:00:[address] Results [...] (qualifier value) Not Detected N URINALYSIS WITH [id number] 10:57:00 Test Item Value Reference Range Interpretation Comments Color (test code = UCOLR) Dk. Yellow Clarity (test code = UCLAR) Hazy Glucose (test code = UGLUC) NEGATIVE NEGATIVE N Bilirubin (test code = UBILI) NEGATIVE NEGATIVE N Ketones (test code = UKET) NEGATIVE NEGATIVE N Specific [place] (test code = 1.025 1.005-1.030 A USPGR) [...]
[2020-07-29 13:16] LABS: Absolute Lymphocytes (CBC) 1.2 K/uL (0.7-4.9); Basophils % 0.4 % (0-1.3); Hematocrit 35.5 % (36.0-45.0); Lymphocytes % 20.3 % (15.3-44.8); MPV 7.8 fL (7.6-11.3); RBC Red Blood Cell Count 4.63 M/uL (3.86-4.86)
[2020-07-29 13:22] LABS: Protime INR 1.21
[2020-07-29 13:36] LABS: ALT/SGPT 32 U/L (12-78); AST/SGOT 30 U/L (15-37); Albumin 3.4 g/dL (3.4-5.0); Alkaline Phosphatase 94 U/L (45-117); BUN Blood Urea Nitrogen 19 mg/dL (7-18); Bicarbonate 28 mmol/L (21-32); Bilirubin Direct < 0.1 mg/dL (0-0.2); Bilirubin Total 0.3 mg/dL (0.2-1.0); Glucose Level 111 mg/dL (74-106); Magnesium 2.2 mg/dL (1.8-2.4); NT PRO-BNP 1071 pg/mL (<125); Potassium 3.6 mmol/L (3.5-5.1); Protein, Total 7.8 g/dL (6.4-8.2); Sodium Level 142 mmol/L (136-145); Troponin (Emerg Dept Use Only) < 0.02 ng/mL (0.0-0.045)
[2020-07-29] MEDS ORDERED: METHYLPREDNISOLONE 125 MG INJ ONE (13:48)
[2020-07-29] MEDS ORDERED: LEVALBUTEROL 1.25 MG/3 ML NEB ONE (13:48)
[2020-07-29] MEDS ORDERED: MORPHINE 4 MG/ML SYR ONE ×2 (13:48→15:09)
[2020-07-29] MEDS ORDERED: PROMETHAZINE INJ 25 MG/ML AMP ONE (13:48)
--- NOTE | 2020-07-29 14:20 | RAD REPORT ---
EXAM DESCRIPTION: RAD - Chest Single View - 07/29/2020 1:57 pm CLINICAL HISTORY: Chest pain;SOB COMPARISON: Portable May 24 TECHNIQUE: AP portable chest image was obtained 07/29/2020 1:57 pm . FINDINGS: Lung volumes are low. No peripheral mass or consolidation. No failure or volume overload. Fullness of the right hilum has not changed. Heart and vasculature are normal. No measurable pleural effusion and no pneumothorax. No acute bony abnormality seen. No acute aortic findings suspected. IMPRESSION: No acute cardiopulmonary process. No significant change from comparison.
[2020-07-29 14:21] LABS: SARS-COV-2 RT PCR NEGATIVE (NEGATIVE)
--- NOTE | 2020-07-29 14:53 | EDPHYS ---
Physician Documentation [facility] Name: Marjan Fleming Age: 65 yrs Sex: Female : 1955 Arrival Date: 07/29/2020 Time: 12:29 Bed 5 Private MD: ED Physician Ramon Baker HPI: 07/29 13:06 This 65 yrs old Female presents to ER via Ambulatory with complaints of pm1 Shortness Of Breath. 13:06 The patient has shortness of breath at rest. Onset: The symptoms/episode began/occurred pm1 2 day(s) ago. Duration: The symptoms are continuous. The patient's shortness of breath is aggravated by nothing, is alleviated by nothing. Associated signs and symptoms: Pertinent positives: chest pain, productive cough, Pertinent negatives: fever, nausea, vomiting. Severity of symptoms: in the emergency department the symptoms are worse. The patient has experienced similar episodes in the past, multiple times. It is unknown whether or not the patient has recently seen a physician. Historical: - Allergies: 12:43 Bactrim DS; ll1 12:43 butorphanol tartrate; ll1 12:43 Fentanyl; ll1 12:43 metoclopramide HCl; ll1 12:43 Stadol; ll1 12:43 sulfamethoxazole (bulk); ll1 12:43 TRIMETHOPRIM; ll1 - PMHx: 12:43 Anxiety; COPD; Bipolar disorder; HIV; Hypertension; Migraines; Hepatitis; esophageal ll1 varices; Chronic pain; Atrial Fib; Panic Attacks; - PSHx: 12:43 Hernia repair; ll1 - Immunization history:: Flu vaccine is up to date. - Social history:: Smoking status: Patient/guardian denies using tobacco, Stopped _ months ago .8. ROS: 13:06 Constitutional: Negative for fever, chills, and weight loss. pm1 13:06 Abdomen/GI: Negative for abdominal pain, nausea, vomiting, diarrhea, and constipation, Back: Negative for injury and pain, MS/Extremity: Negative for injury and deformity, Skin: Negative for injury, rash, and discoloration, Neuro: Negative for headache, weakness, numbness, tingling, and seizure. 13:06 ENT: Negative for ear pain, rhinorrhea, sore throat. 13:06 Cardiovascular: Positive for chest pain, Negative for edema. 13:06 Respiratory: Positive for cough, with green sputum, shortness of breath, wheezing. Exam: 13:06 Constitutional: This is a well developed, well nourished patient who is awake, alert, pm1 and in no acute distress. Head/Face: Normocephalic, atraumatic. 13:06 Back: No spinal tenderness. No costovertebral tenderness. Full range of motion. Skin: Warm, dry with normal turgor. Normal color with no rashes, no lesions, and no evidence of cellulitis. MS/ Extremity: Pulses equal, no cyanosis. Neurovascular intact. Full, normal range of motion. 13:06 Chest/axilla: Inspection: normal, Palpation: crepitus, is not appreciated, tenderness, of the mid-sternal area, that totally reproduces the patient's complaints. 13:06 Cardiovascular: Exam negative for acute changes, Rate: normal, Rhythm: regular, Pulses: no pulse deficits are appreciated. 13:06 Respiratory: the patient does not display signs of respiratory distress, Respirations: no acute changes, Breath sounds: wheezing: expiratory that is mild, is heard diffusely. 13:06 Abdomen/GI: Inspection: abdomen appears normal, Palpation: abdomen is soft and non-tender, in all quadrants. 13:06 Neuro: Exam negative for acute changes, Orientation: is normal, Mentation: is normal, Motor: is normal, moves all fours. Vital Signs: 12:43 BP 147 / 99; Pulse 58; Resp 18; Temp 98.2; Pulse Ox 96% ; Weight 96.62 kg; Height 5 ft. ll1 4 in. (162.56 cm); Pain 9/10; 13:45 BP 185 / 88; Pulse 77; Resp 18; Pulse Ox 100% on Nebulizer Mask; ss 12:43 Body Mass Index 36.56 (96.62 kg, 162.56 cm) ll1 MDM: 12:40 Patient medically screened. pm1 14:48 Data reviewed: vital signs. Data interpreted: Pulse oximetry: on room air is 100 %. pm1 Interpretation: normal. 14:52 Counseling: I had a detailed discussion with the patient and/or guardian regarding: the pm1 historical points, exam findings, and any diagnostic results supporting the discharge/admit diagnosis, lab results, radiology results, the need for outpatient follow up, to return to the emergency department if symptoms worsen or persist or if there are any questions or concerns that arise at home. 07/29 12:56 Order name: Basic Metabolic Panel pm1 07/29 12:56 Order name: CBC with Diff; Complete Time: 13:55 pm1 07/29 12:56 Order name: LFT's; Complete Time: 13:55 pm1 07/29 12:56 Order name: Magnesium; Complete Time: 13:55 pm1 07/29 12:56 Order name: NT PRO-BNP; Complete Time: 13:55 pm1 07/29 12:56 Order name: PT-INR; Complete Time: 13:55 pm1 07/29 12:56 Order name: Troponin (emerg Dept Use Only); Complete Time: 13:55 pm1 07/29 12:56 Order name: XRAY Chest (1 view); Complete Time: 14:22 pm1 07/29 12:56 Order name: Strep; Complete Time: 14:42 pm1 07/29 12:57 Order name: Basic Metabolic Panel; Complete Time: 13:55 EDMS 07/29 14:21 Order name: COVID-19/FLU A+B; Complete Time: 14:22 EDMS 07/29 14:35 Order name: Throat Culture EDMS 07/29 12:56 Order name: EKG; Complete Time: 12:57 pm1 07/29 12:56 Order name: Cardiac monitoring; Complete Time: 14:06 pm1 07/29 12:56 Order name: EKG - Nurse/Tech; Complete Time: 14:06 pm1 07/29 12:56 Order name: IV Saline Lock; Complete Time: 14:06 pm1 07/29 12:56 Order name: Labs collected and sent; Complete Time: 14:07 pm1 07/29 12:56 Order name: O2 Per Protocol; Complete Time: 14:07 pm1 07/29 12:56 Order name: O2 Sat Monitoring; Complete Time: 14:07 pm1 07/29 12:56 Order name: Droplet/Contact Precautions; Complete Time: 14:06 pm1 Administered Medications: 14:00 Drug: SOLU-Medrol 125 mg Route: IVP; Site: left wrist; ss 14:02 Drug: Phenergan 12.5 mg Route: IVP; Site: left wrist; ss 14:04 Drug: morphine 4 mg Route: IVP; Site: left wrist; ss 14:05 Drug: Xopenex (3) 1.25 mg Route: Inhalation; ss 14:56 Drug: morphine 4 mg Route: IVP; Site: left wrist; ph 15:00 Drug: Rocephin 1 grams Route: IV; Rate: calculated rate; Site: left wrist; ph Disposition: 15:50 Co-signature as Attending Physician, Ramon Baker MD. rn Disposition: 07/29/20 14:53 Discharged to Home. Impression: Chronic obstructive pulmonary disease with (acute) exacerbation. - Condition is Stable. - Discharge Instructions: Steps to Quit Smoking, Chronic Obstructive Pulmonary Disease Exacerbation. - Prescriptions for Prednisone 20 mg Oral Tablet - take 3 tablet by ORAL route once daily for 5 days; 15 tablet. Zithromax Z- Niall 250 mg Oral Tablet - take 1 tablet by ORAL route as directed for 5 days Day 1 - take two (2) tablets one time. Day 2, 3, 4 , 5 take one (1) tablet once daily.; 6 tablet. Guaifenesin AC 10- 100 mg/5 mL Oral Liquid - take 10 milliliter by ORAL route every 4 hours As needed; 240 milliliter. - Medication Reconciliation Form, Thank You Letter, Antibiotic Education, Prescription Opioid Use form. - Follow up: Emergency Department; When: As needed; Reason: Worsening of condition. Follow up: Private Physician; When: 2 - 3 days; Reason: Recheck today's complaints, Continuance of care, Re-evaluation by your physician. - Problem is new. - Symptoms have improved. Signatures: Dispatcher [employer] EDMS Ramon Baker MD MD rn Smirch, Shelby, RN RN ss Hall, Patricia, RN RN ph Austin Raza, TIMBO REPORT SPECIALIST pm1 Yanira De Jesus RN RN ll1 Corrections: (The following items were deleted from the chart) 13:38 12:57 CORONAVIRUS+MR.LAB.BRZ ordered. EDMS EDMS 13:47 12:57 Influenza Screen (A \T\ B)+BA.LAB.BRZ ordered. EDFL EDMS 15:23 14:53 07/29/2020 14:53 Discharged to Home. Impression: Chronic obstructive pulmonary ss disease with (acute) exacerbation. Condition is Stable. Forms are Medication Reconciliation Form, Thank You Letter, Antibiotic Education, Prescription Opioid Use. Follow up: Emergency Department; When: As needed; Reason: Worsening of condition. Follow up: Private Physician; When: 2 - 3 days; Reason: Recheck today's complaints, Continuance of care, Re-evaluation by your physician. Problem is new. Symptoms have improved. pm1
--- NOTE | 2020-07-29 14:53 | ER ---
Nurse's Notes [facility] Name: Marjan Fleming Age: 65 yrs Sex: Female : 1955 Arrival Date: 07/29/2020 Time: 12:29 Bed 5 Private MD: Diagnosis: Chronic obstructive pulmonary disease with (acute) exacerbation Presentation: 07/29 12:43 Chief complaint: Patient states: SOB and CP for 2 days. Feels unsteady on her feet for ll1 2 days. Coronavirus screen: Client denies travel out of the [place] in the last 14 days. difficulty breathing, shortness of breath, Client presents with at least one sign or symptom that may indicate coronavirus-19. Standard/surgical mask placed on the client. Ebola Screen: Patient denies travel to an Ebola-affected area in the 21 days before illness onset. Initial Sepsis Screen: Does the patient meet any 2 criteria? No. Patient's initial sepsis screen is negative. Does the patient have a suspected source of infection? No. Patient's initial sepsis screen is negative. Risk Assessment: Do you want to hurt yourself or someone else? Patient reports no desire to harm self or others. Onset of symptoms was July 28, 2020. 12:43 Method Of Arrival: Ambulatory ll1 12:43 Acuity: BLAYNE 3 ll1 Historical: - Allergies: 12:43 Bactrim DS; ll1 12:43 butorphanol tartrate; ll1 12:43 Fentanyl; ll1 12:43 metoclopramide HCl; ll1 12:43 Stadol; ll1 12:43 sulfamethoxazole (bulk); ll1 12:43 TRIMETHOPRIM; ll1 - PMHx: 12:43 Anxiety; COPD; Bipolar disorder; HIV; Hypertension; Migraines; Hepatitis; esophageal ll1 varices; Chronic pain; Atrial Fib; Panic Attacks; - PSHx: 12:43 Hernia repair; ll1 - Immunization history:: Flu vaccine is up to date. - Social history:: Smoking status: Patient/guardian denies using tobacco, Stopped _ months ago .8. Screenin:50 Abuse screen: Denies threats or abuse. Denies injuries from another. Nutritional ph screening: No deficits noted. Tuberculosis screening: No symptoms or risk factors identified. Fall Risk None identified. Assessment: 13:45 General: Appears in no apparent distress. uncomfortable, Behavior is calm, cooperative. ss General: Reports feeling ill for 1-2 days. Pain: Complains of pain in chest Pain currently is 9 out of 10 on a pain scale. Quality of pain is described as pressure, Pain began 2-3 days ago. Is continuous. Neuro: Level of Consciousness is awake, alert, obeys commands, Oriented to person, place, time, situation, Paperboard Box Maker are equal bilaterally Speech is normal, Facial symmetry appears normal, Pupils are PERRLA. Cardiovascular: Rhythm is sinus bradycardia. Respiratory: Airway is patent Respiratory effort is even, unlabored, Respiratory pattern is regular, symmetrical, Breath sounds with wheezes bilaterally. GI: Reports nausea. : No signs and/or symptoms were reported regarding the genitourinary system. EENT: Nares are clear Oral mucosa is moist. Derm: Skin is intact, is healthy with good turgor, Skin is dry, Skin is pink, warm \\T\\ dry. normal. Musculoskeletal: Circulation, motion, and sensation intact. Range of motion: intact in all extremities, Swelling absent. 15:01 Reassessment: Patient appears in no apparent distress at this time. Patient and/or ph family updated on plan of care and expected duration. Pain level reassessed. Patient is alert, oriented x 3, equal unlabored respirations, skin warm/dry/pink. Pt medicated for pain per ERP order, pt states , " Is he really going to send me home w/ my blood pressure that high?" BP 187/113, rechecked after pain medication given and remained high at 183/100, ERP notified. Vital Signs: 12:43 BP 147 / 99; Pulse 58; Resp 18; Temp 98.2; Pulse Ox 96% ; Weight 96.62 kg; Height 5 ft. ll1 4 in. (162.56 cm); Pain 9/10; 13:45 BP 185 / 88; Pulse 77; Resp 18; Pulse Ox 100% on Nebulizer Mask; ss 12:43 Body Mass Index 36.56 (96.62 kg, 162.56 cm) ll1 ED Course: 12:29 Patient arrived in ED. ds1 12:40 Austin Raza NP is PHCP. pm1 12:40 Ramon Baker MD is Attending Physician. pm1 12:42 Arm band placed on Patient placed in an exam room, on a stretcher. ll1 12:44 Triage completed. ll1 12:50 Patient has correct armband on for positive identification. Placed in gown. Bed in low ph position. Call light in reach. Side rails up X 1. social media intern on. Pulse ox on. NIBP on. Door closed. Noise minimized. 13:17 Sandra Cadet, RN is Primary Nurse. ss 13:45 Missed attempt(s): 22 gauge in left hand. ss 13:57 XRAY Chest (1 view) In Process Unspecified. EDMS 14:00 Inserted saline lock: 24 gauge in left wrist, using aseptic technique. ss 15:22 No provider procedures requiring assistance completed. IV discontinued, intact, ss bleeding controlled, No redness/swelling at site. Pressure dressing applied. Administered Medications: 14:00 Drug: SOLU-Medrol 125 mg Route: IVP; Site: left wrist; ss 14:02 Drug: Phenergan 12.5 mg Route: IVP; Site: left wrist; ss 14:04 Drug: morphine 4 mg Route: IVP; Site: left wrist; ss 14:05 Drug: Xopenex (3) 1.25 mg Route: Inhalation; ss 14:56 Drug: morphine 4 mg Route: IVP; Site: left wrist; ph 15:00 Drug: Rocephin 1 grams Route: IV; Rate: calculated rate; Site: left wrist; ph Outcome: 14:53 Discharge ordered by MD. pm1 15:22 Discharged to home ambulatory. ss 15:22 Condition: good 15:22 Discharge instructions given to patient, family, Instructed on discharge instructions, follow up and referral plans. medication usage, Demonstrated understanding of instructions, follow-up care, medications, Prescriptions given X 3. 15:23 Patient left the ED. ss Signatures: Dispatcher [employer] EDGA Lainey Monson ds1 Sandra Cadet, ASHLEY RAMIREZ Solange Bennett RN RN Austin Raza, TIMBO HR CLERK pm1 Yanira De Jesus RN RN ll1
[2020-07-29] MEDS ORDERED: CEFTRIAXONE/SWI 1gm 1 GM/10 ML SYR ONE (15:09)
[2020-07-29 15:55] VITALS: TEMP 98.2
[2020-07-29 15:56] VITALS: BP 185/88; O2SAT 100
--- NOTE | 2020-07-31 05:18 | EKG ---
Test Date: 2020-07-29 Test Time: 13:31:59 [place] Treater: YAZAN MEASUREMENT RESULTS: Intervals: Rate: 59 IN: QRSD: 80 QT: 506 QTc: 500 [place]: P: IN: QRS: 0 T: 12 INTERPRETIVE STATEMENTS: Junctional rhythm Moderate voltage criteria for LVH, may be normal variant ST & T wave abnormality, consider anterior ischemia Abnormal ECG Compared to ECG 07/13/2020 15:18:27 Junctional rhythm now present Possible ischemia now present Sinus rhythm no longer present ST (T wave) deviation still present Electronically Signed On 07-31-20 05:12:01 CALENDER FEEDER by Per Crane
== END 2020-07-29 15:23 | disposition home or self-care (01) ==
LOC: ER 12:27
DX: J44.1 Chronic obstructive pulmonary disease with (acute) exacerbation (principal); Z20.822 Contact with and (suspected) exposure to COVID-19; I10 Essential (primary) hypertension; Z21 Asymptomatic human immunodeficiency virus [HIV] infection status; Z88.1 Allergy status to other antibiotic agents; Z88.2 Allergy status to sulfonamides; Z88.5 Allergy status to narcotic agent; Z88.6 Allergy status to analgesic agent; Z88.8 Allergy status to other drugs, medicaments and biological substances
CPT/HCPCS: 93005; 87070; 85025; 80048; 36415; 83735; 85610; 80076; 87081; 84484; 83880; 0240U; 71045; 96375; 96374; 99285; J2550; J0696; J2930

== ENCOUNTER 2020-07-30 14:09 | Observation (INO) | payer OTHER ==
--- OUTSIDE RECORDS SUMMARY | 2020-07-30 14:12 | XMS REPORT | Continuity of Care Document ---
:1955 Author Organization [facility] t Address [address] [place] [address] Care Team Providers Name Role Phone YAZMIN [...] Facility Department ID 2020-07-28 2020-07-28 Outpatient YAZMIN [facility] [id number] [place] 00:00:00 00:00:00 RAY [address] 2020-07-23 2020-07-23 Outpatient TREMAYNE [facility] [id number] [place] 00:00:00 00:00:00 OMID [address] 2020-07-14 2020-07-14 Orders Doctor CHRISTENSEN [id number] 00:00:00 00:00:00 Only Unassigned, JACKELINE [id number] [place] [facility] [id number] 2020-07-02 2020-07-02 Outpatient [facility] [id number] [place] 00:00:00 00:00:[address] 2020-06-23 2020-06-23 Outpatient YAZMIN [facility] [id number] [place] 00:00:00 00:00:00 RAY [address] 2020-04-25 2020-05-03 Inpatient YAZMIN [facility] [id number] [place] 00:00:00 00:00:00 RAY [address] 2020-04-25 2020-04-25 Outpatient YAZMIN [facility] [id number] [place] 00:00:00 00:00:00 RAY [address] 2020-04-25 2020-04-25 Outpatient YAZMIN [facility] [id number] [place] 00:00:00 00:00:00 RAY [address] 2020-04-21 2020-04-21 Emergency TU, YEN-TE [facility] [id number] [place] 00:00:00 00:00:[address] Results [...] (qualifier value) Not Detected N URINALYSIS WITH [id number] 10:57:00 Test Item Value Reference Range Interpretation Comments Color (test code = UCOLR) Dk. Yellow Clarity (test code = UCLAR) Hazy Glucose (test code = UGLUC) NEGATIVE NEGATIVE N Bilirubin (test code = UBILI) NEGATIVE NEGATIVE N Ketones (test code = UKET) NEGATIVE NEGATIVE N Specific [place] (test code = 1.025 1.005-1.030 A USPGR) [...]
[2020-07-30] MEDS ORDERED: LEVALBUTEROL 1.25 MG/3 ML NEB ONE (15:12)
[2020-07-30 15:52] LABS: Absolute Lymphocytes (CBC) 1.1 K/uL (0.7-4.9); Basophils % 0.4 % (0-1.3); Hematocrit 33.2 % (36.0-45.0); RBC Red Blood Cell Count 4.32 M/uL (3.86-4.86)
[2020-07-30 16:08] LABS: BUN Blood Urea Nitrogen 22 mg/dL (7-18); Bicarbonate 30 mmol/L (21-32); Glucose Level 92 mg/dL (74-106); Magnesium 2.3 mg/dL (1.8-2.4); NT PRO-BNP 1081 pg/mL (<125); Potassium 3.2 mmol/L (3.5-5.1); Sodium Level 146 mmol/L (136-145); Troponin (Emerg Dept Use Only) < 0.02 ng/mL (0.0-0.045)
--- NOTE | 2020-07-30 16:18 | ER ---
Nurse's Notes [facility] Name: Marjan Fleming Age: 65 yrs Sex: Female : 1955 Arrival Date: 07/30/2020 Time: 14:13 Bed 5 Private MD: Lele Rahman H Diagnosis: Chronic obstructive pulmonary disease with (acute) exacerbation Presentation: 07/30 14:16 Chief complaint: Patient states: i was here yesterday and i feel like i cant breathe tw2 still, i am still wheezing, i cant even hardly walk to the bathroom without loosing my breath. Coronavirus screen: cough unrelated to allergies, shortness of breath, Client presents with at least one sign or symptom that may indicate coronavirus-19. Standard/surgical mask placed on the client. Provider contacted for isolation considerations. Coronavirus screen: nausea, shaking with chills. Ebola Screen: Patient denies travel to an Ebola-affected area in the 21 days before illness onset. Initial Sepsis Screen: Does the patient meet any 2 criteria? No. Patient's initial sepsis screen is negative. Does the patient have a suspected source of infection? No. Patient's initial sepsis screen is negative. Risk Assessment: Do you want to hurt yourself or someone else? Patient reports no desire to harm self or others. Onset of symptoms was July 30, 2020. 14:16 Method Of Arrival: Ambulatory tw2 14:16 Acuity: BLAYNE 3 tw2 Triage Assessment: 14:19 General: Appears in no apparent distress. Behavior is calm, cooperative, appropriate tw2 for age. Pain: Complains of pain in chest. Respiratory: Reports shortness of breath at rest on exertion cough that is non-productive, dry, Onset: The symptoms/episode began/occurred "about 3 days ", the patient has mild shortness of breath. Historical: - Allergies: 14:19 Bactrim DS; tw2 14:19 butorphanol tartrate; tw2 14:19 Fentanyl; tw2 14:19 metoclopramide HCl; tw2 14:19 Stadol; tw2 14:19 sulfamethoxazole (bulk); tw2 14:19 TRIMETHOPRIM; tw2 - PMHx: 14:19 Migraines; Hypertension; HIV; esophageal varices; COPD; Bipolar disorder; Chronic pain; tw2 Atrial Fib; Anxiety; Hepatitis; Panic Attacks; - PSHx: 14:19 Hernia repair; tw2 - Immunization history:: Adult Immunizations Client reports receiving the 2nd dose of the Covid vaccine, Date received: July 22, 2020. - Social history:: Smoking status: . - Family history:: not pertinent. - Hospitalizations: : No recent hospitalization is reported. Screenin:20 Abuse screen: Denies threats or abuse. Denies injuries from another. Nutritional bp screening: No deficits noted. Tuberculosis screening: No symptoms or risk factors identified. Fall Risk None identified. Assessment: 14:20 General: SEE TRIAGE NOTE. bp 16:00 Reassessment: Patient appears in no apparent distress at this time. No changes from bp previously documented assessment. Patient and/or family updated on plan of care and expected duration. Pain level reassessed. ALL CURRENT ORDERS COMPLETE. Cardiovascular: Rhythm is sinus rhythm. Respiratory: Airway is patent Respiratory effort is even, Breath sounds with wheezes. 18:00 Reassessment: Patient appears in no apparent distress at this time. No changes from bp previously documented assessment. Patient and/or family updated on plan of care and expected duration. Pain level reassessed. ADMIT IN PROCESS. 19:32 Reassessment: Patient and/or family updated on plan of care and expected duration. Pain ea level reassessed. Patient is alert, oriented x 3, equal unlabored respirations, skin warm/dry/pink. Vital Signs: 14:16 BP 173 / 87; Pulse 60; Resp 20; Temp 97.7(O); Pulse Ox 99% ; Weight 96.62 kg (R); tw2 Height 5 ft. 4 in. (162.56 cm) (R); Pain 9/10; 15:00 BP 170 / 89; Pulse 57; Resp 21; Pulse Ox 95% ; bp 16:00 BP 172 / 90; Pulse 55; Resp 18; Pulse Ox 97% ; bp 17:00 BP 171 / 89; Pulse 61; Resp 16; Pulse Ox 95% ; bp 18:00 BP 156 / 78; Pulse 58; Resp 16; Pulse Ox 97% ; bp 19:32 BP 143 / 88; Pulse 58; Resp 18; Temp 98; Pulse Ox 95% ; ea 14:16 Body Mass Index 36.56 (96.62 kg, 162.56 cm) tw2 ED Course: 14:13 Patient arrived in ED. tw2 14:14 Lele Rahman DO is Private Physician. tw2 14:18 Triage completed. tw2 14:19 Arm band placed on. tw2 14:21 Ramon Baker MD is Attending Physician. rn 14:44 Carlos Eduardo Olivera, ASHLEY is Primary Nurse. bp 15:00 Inserted saline lock: 24 gauge in left upper arm, using aseptic technique. Blood bp collected. 15:03 XRAY Chest (1 view) In Process Unspecified. EDMS 15:17 Patient has correct armband on for positive identification. Placed in gown. Bed in low mh5 position. Call light in reach. Side rails up X 1. Warm blanket given. case monitor on. Pulse ox on. NIBP on. 16:17 Liz Qureshi MD is Hospitalizing Provider. rn 19:31 No provider procedures requiring assistance completed. Patient transferred, IV remains ea in place. Administered Medications: 15:00 Drug: Xopenex (3) 1.25 mg Route: Inhalation; bp 16:45 Drug: SOLU-Medrol 125 mg Route: IVP; Site: left upper arm; bp 18:02 Follow up: Response: No adverse reaction bp 16:45 Drug: Zofran (Ondansetron) 4 mg Route: IVP; Site: left upper arm; bp 19:06 Follow up: Response: Pain is decreased bp 17:50 Drug: morphine 4 mg Route: IVP; Site: left upper arm; bp 19:06 Follow up: Response: No adverse reaction bp Outcome: 16:17 Decision to Hospitalize by Provider. rn 19:32 Condition: stable ea 19:32 Instructed on the need for admit. 19:42 Admitted to Med/surg accompanied by nurse, accompanied by tech, via stretcher, room rr5 205, with chart, Report called to valorie 19:44 Patient left the ED. rr5 Signatures: Dispatcher [employer] EDMS Ramon Baker MD MD rn Wise, Tara, RN RN 2 Laura Simons [facility] Gregoria Madison RN RN ea Peltier, Brian, RN Goldy Ramirez, ASHLEY RN rr5
--- NOTE | 2020-07-30 16:18 | EDPHYS ---
Physician Documentation [facility] Name: Marjan Fleming Age: 65 yrs Sex: Female : 1955 Arrival Date: 07/30/2020 Time: 14:13 Bed 5 Private MD: Lele Rahman H ED Physician Ramon Baker HPI: 07/30 14:31 This 65 yrs old Female presents to ER via Ambulatory with complaints of rn Shortness Of Breath, Dizziness. 14:32 The patient has shortness of breath at rest, with light activity. rn 14:33 Onset: The symptoms/episode began/occurred 3 day(s) ago. Duration: The symptoms are rn continuous. The patient's shortness of breath is aggravated by exertion, light activity, is alleviated by nothing. Associated signs and symptoms: Pertinent positives: non-productive cough, Pertinent negatives: fever, hemoptysis, loss of consciousness. Severity of symptoms: At their worst the symptoms were moderate in the emergency department the symptoms are unchanged. The patient has experienced similar episodes in the past. Reports still sob, worse with exertion, no chest pain, no hemoptysis, seen here yesterday, not better, felt more winded today. Neg COVID/FLU yesterday. . Historical: - Allergies: 14:19 Bactrim DS; tw2 14:19 butorphanol tartrate; tw2 14:19 Fentanyl; tw2 14:19 metoclopramide HCl; tw2 14:19 Stadol; tw2 14:19 sulfamethoxazole (bulk); tw2 14:19 TRIMETHOPRIM; tw2 - PMHx: 14:19 Migraines; Hypertension; HIV; esophageal varices; COPD; Bipolar disorder; Chronic pain; tw2 Atrial Fib; Anxiety; Hepatitis; Panic Attacks; - PSHx: 14:19 Hernia repair; tw2 - Immunization history:: Adult Immunizations Client reports receiving the 2nd dose of the Covid vaccine, Date received: July 22, 2020. - Social history:: Smoking status: . - Family history:: not pertinent. - Hospitalizations: : No recent hospitalization is reported. ROS: 14:33 Constitutional: Negative for fever, chills, and weight loss, Eyes: Negative for injury, rn pain, redness, and discharge, ENT: Negative for injury, pain, and discharge, Neck: Negative for injury, pain, and swelling, Cardiovascular: Negative for chest pain, palpitations, and edema, Respiratory: + cough and sob Abdomen/GI: Negative for abdominal pain, nausea, vomiting, diarrhea, and constipation, Back: Negative for injury and pain, MS/Extremity: Negative for injury and deformity, Skin: Negative for injury, rash, and discoloration, Neuro: + dizziness, negative for headache 14:33 All other systems are negative. Exam: 14:33 Constitutional: This is a well developed, well nourished patient who is awake, alert, rn mild tachypnea Head/Face: Normocephalic, atraumatic. ENT: MMM Cardiovascular: Regular rate and rhythm. No pulse deficits. Respiratory: Mild tachypnea, + bilateral wheezing, no retractions Abdomen/GI: soft, non-tender Skin: Warm, dry with normal turgor. Normal color with no rashes, no lesions, and no evidence of cellulitis. MS/ Extremity: Pulses equal, no cyanosis. Neurovascular intact. Full, normal range of motion. Equal circumference. Neuro: Awake and alert, GCS 15, oriented to person, place, time, and situation. Cranial nerves II-XII grossly intact. Motor strength 5/5 in all extremities. Sensory grossly intact. Vital Signs: 14:16 BP 173 / 87; Pulse 60; Resp 20; Temp 97.7(O); Pulse Ox 99% ; Weight 96.62 kg (R); tw2 Height 5 ft. 4 in. (162.56 cm) (R); Pain 9/10; 15:00 BP 170 / 89; Pulse 57; Resp 21; Pulse Ox 95% ; bp 16:00 BP 172 / 90; Pulse 55; Resp 18; Pulse Ox 97% ; bp 17:00 BP 171 / 89; Pulse 61; Resp 16; Pulse Ox 95% ; bp 18:00 BP 156 / 78; Pulse 58; Resp 16; Pulse Ox 97% ; bp 19:32 BP 143 / 88; Pulse 58; Resp 18; Temp 98; Pulse Ox 95% ; ea 14:16 Body Mass Index 36.56 (96.62 kg, 162.56 cm) tw2 MDM: 14:21 Patient medically screened. rn 16:15 Differential diagnosis: Bronchitis Chronic Obstructive Pulmonary Disease Myocardial rn Infarction pneumonia, Pneumothorax pulmonary edema. Data reviewed: vital signs, nurses notes, lab test result(s), radiologic studies, plain films, and as a result, I will admit patient. Counseling: I had a detailed discussion with the patient and/or guardian regarding: the historical points, exam findings, and any diagnostic results supporting the discharge/admit diagnosis, lab results, radiology results, the need for further work-up and treatment in the hospital. Response to treatment: the patient's symptoms have mildly improved after treatment, and as a result, I will admit patient. Admission orders: after a detailed discussion of the patient's condition and case, the admit orders are written by me. ED course: Pt still wheezing and dyspneic after steroids and nebs, 2nd visit in 2 days, will admit to [facility] for COPD exacerbation.. 07/30 14:30 Order name: CBC with Diff rn 07/30 14:30 Order name: Basic Metabolic Panel rn 07/30 14:30 Order name: Magnesium rn 07/30 14:30 Order name: BNP; Complete Time: 16:56 rn 07/30 14:30 Order name: Troponin (emerg Dept Use Only); Complete Time: 16:56 rn 07/30 14:30 Order name: CBC with Automated Diff; Complete Time: 16:56 EDMS 07/30 14:28 Order name: XRAY Chest (1 view); Complete Time: 16:56 rn 07/30 14:30 Order name: EKG; Complete Time: 14:31 rn 07/30 14:30 Order name: Basic Metabolic Panel; Complete Time: 16:56 EDAK 07/30 14:30 Order name: Magnesium; Complete Time: 16:56 EDAK 07/30 14:30 Order name: IV Start; Complete Time: 16:02 rn 07/30 14:30 Order name: EKG - Nurse/Tech; Complete Time: 15:17 rn Administered Medications: 15:00 Drug: Xopenex (3) 1.25 mg Route: Inhalation; bp 16:45 Drug: SOLU-Medrol 125 mg Route: IVP; Site: left upper arm; bp 18:02 Follow up: Response: No adverse reaction bp 16:45 Drug: Zofran (Ondansetron) 4 mg Route: IVP; Site: left upper arm; bp 19:06 Follow up: Response: Pain is decreased bp 17:50 Drug: morphine 4 mg Route: IVP; Site: left upper arm; bp 19:06 Follow up: Response: No adverse reaction bp Disposition: 07/30/20 16:17 Hospitalization ordered by Liz Qureshi for Observation. Preliminary diagnosis is Chronic obstructive pulmonary disease with (acute) exacerbation. - Bed requested for Telemetry/MedSurg (observation). - Status is Observation. rr5 - Condition is Stable. - Problem is new. - Symptoms have improved. Signatures: Dispatcher [employer] EDMS Ramon Baker MD MD rn Calderon, Audri, RN RN aa5 Hanna Stephenson RN RN tl1 Karen Tovar, RN RN tw2 Carlos Eduardo Olivera, RN RN Goldy Wang RN RN rr5 Corrections: (The following items were deleted from the chart) 16:48 16:17 Hospitalization Ordered by Liz Qureshi MD for Observation. Preliminary aa5 diagnosis is Chronic obstructive pulmonary disease with (acute) exacerbation. Bed requested for Telemetry/MedSurg (observation). Status is Observation. Condition is Stable. Problem is new. Symptoms have improved. rn 19:16 16:48 07/30/2020 16:17 Hospitalization Ordered by iLz Qureshi MD for Observation. tl1 Preliminary diagnosis is Chronic obstructive pulmonary disease with (acute) exacerbation. Bed requested for [facility] ER HOLD. Status is Observation. Condition is Stable. Problem is new. Symptoms have improved. aa5 19:44 19:16 07/30/2020 16:17 Hospitalization Ordered by Liz Qureshi MD for Observation. rr5 Preliminary diagnosis is Chronic obstructive pulmonary disease with (acute) exacerbation. Bed requested for Telemetry/MedSurg (observation). Status is Observation. Condition is Stable. Problem is new. Symptoms have improved. tl1
[2020-07-30] MEDS ORDERED: ONDANSETRON 4 MG/2 ML VIAL IV PRN (16:22)
[2020-07-30] MEDS ORDERED: ACETAMINOPHEN 500 MG TAB PO PRN (16:22)
--- NOTE | 2020-07-30 16:39 | RAD REPORT ---
EXAM DESCRIPTION: RAD - Chest Single View - 07/30/2020 3:03 pm CLINICAL HISTORY: COUGH COMPARISON: July 29 TECHNIQUE: AP portable chest image was obtained 07/30/2020 3:03 pm . FINDINGS: Lung volumes remain low. No new mass consolidations seen. Central vasculature within robe l limits. Cardiac silhouette is enlarged due to the low lung volumes, portable technique and body hab itus. Interstitial pattern is not substantially different. Edema or infiltrate could be masked by the baseline prominence. No measurable pleural effusion and no pneumothorax. No acute bony abnormality s een. No acute aortic findings suspected. IMPRESSION: Limited shallow inspiration exam not substantially different prior day imaging. Baseline interstitial pattern could mask mild edema or infiltrate.
[2020-07-30] MEDS ORDERED: NA CHLORIDE 0.9% 1,000 ML IV SCH (17:00)
[2020-07-30] MEDS ORDERED: METHYLPREDNISOLONE 125 MG INJ ONE (17:08)
[2020-07-30] MEDS ORDERED: ONDANSETRON 4 MG/2 ML VIAL ONE (17:08)
[2020-07-30] MEDS ORDERED: MORPHINE 4 MG/ML SYR ONE (18:00)
[2020-07-30] MEDS: METHYLPREDNISOLONE 40 MG INJ IV SCH (18:00)
[2020-07-30] MEDS ORDERED: NA CHLORIDE 0.9% 1,000 ML ONE (18:43)
[2020-07-30] MEDS ORDERED: HYDROMORPHONE HCL 0.5 MG/0.5 ML INJ IV PRN (18:48)
[2020-07-30] MEDS ORDERED: ALBUTEROL 2.5 MG/3 ML NEB SOL ONE (20:19)
[2020-07-30] MEDS ORDERED: IPRATROPIUM BROM 0.5MG/2.5ML ONE (20:19)
[2020-07-30 21:09] VITALS: BMI 36.5
[2020-07-30] MEDS: MORPHINE 2 MG/ML SYR IV PRN (21:48)
[2020-07-30] MEDS: CEFTRIAXONE/SWI 1gm 1 GM/10 ML SYR IVP SCH (21:50)
[2020-07-30] MEDS ORDERED: CEFTRIAXONE/SWI 1gm 1 GM/10 ML SYR ONE (21:58)
[2020-07-30] MEDS: ALBUTEROL 2.5 MG/3 ML NEB SOL NEB SCH (22:00)
[2020-07-30] MEDS: IPRATROPIUM BROM 0.5MG/2.5ML NEB SCH (22:00)
[2020-07-31] MEDS: METHYLPREDNISOLONE 40 MG INJ IV SCH ×2 (00:40→05:38)
[2020-07-31] MEDS: IPRATROPIUM BROM 0.5MG/2.5ML NEB SCH ×2 (03:05→08:30)
[2020-07-31] MEDS: ALBUTEROL 2.5 MG/3 ML NEB SOL NEB SCH ×2 (03:05→08:30)
[2020-07-31] MEDS: MORPHINE 2 MG/ML SYR IV PRN ×3 (03:20→13:23)
--- NOTE | 2020-07-31 05:12 | EKG ---
Test Date: 2020-07-30 Test Time: 15:08:25 General Duty Nurse: BENITO MEASUREMENT RESULTS: Intervals: Rate: 55 HI: 144 QRSD: 84 QT: 506 QTc: 484 [place]: P: 44 HI: 144 QRS: 4 T: 14 INTERPRETIVE STATEMENTS: Sinus bradycardia Voltage criteria for left ventricular hypertrophy ST & T wave abnormality, consider anterior ischemia Prolonged QT Abnormal ECG Compared to ECG 07/29/2020 13:31:59 Prolonged QT interval now present Junctional rhythm no longer present ST (T wave) deviation still present Possible ischemia still present Electronically Signed On 07-31-20 05:11:12 BARREL LOADER by Per Crane
[2020-07-31 06:32] LABS: Absolute Lymphocytes (CBC) 0.6 K/uL (0.7-4.9); Basophils % 0.1 % (0-1.3); Hematocrit 32.4 % (36.0-45.0); MPV 7.7 fL (7.6-11.3); RBC Red Blood Cell Count 4.23 M/uL (3.86-4.86)
[2020-07-31 06:52] LABS: ALT/SGPT 45 U/L (12-78); AST/SGOT 41 U/L (15-37); Albumin 3.4 g/dL (3.4-5.0); Alkaline Phosphatase 90 U/L (45-117); BUN Blood Urea Nitrogen 19 mg/dL (7-18); Bicarbonate 27 mmol/L (21-32); Bilirubin Total 0.2 mg/dL (0.2-1.0); Glucose Level 142 mg/dL (74-106); Potassium 3.7 mmol/L (3.5-5.1); Protein, Total 7.6 g/dL (6.4-8.2); Sodium Level 142 mmol/L (136-145)
[2020-07-31 09:41] LABS: Platelet Estimate ADEQ; White Blood Cell Scan OK (OK)
[2020-07-31 09:42] LABS: Anisocytosis 1+; Blood Morphology Comment NOTED (NOT SEEN)
--- NOTE | 2020-07-31 09:50 | P.HP ---
Certification for Inpatient Patient admitted to: Observation With expected LOS: <2 Midnights Patient will require the following post-hospital care: None Practitioner: I am a practitioner with admitting privileges, knowledge of patient current condition, hospital course, and medical plan of care. Services: Services provided to patient in accordance with Admission requirements found in Title 42 Section 412.3 of the Code of Federal Regulations Patient History Date of Service: 07/30/20 Reason for admission: COPD exacerbation History of Present Illness: Patient is a 65-year-old female came to the hospital with shortness of breath. Patient has a history of COPD and has been in the emergency room on numerous occasions. She is normally treated in the emergency room. She came to the hospital for further evaluation. Patient was seen by emergency room physician but because she has been in the ER the day before they wanted to observe her through the night. Patient has a history of HIV and she states she is compliant with the medication. On likely to have an opportunistic infection as her chest x-ray does not show any significant abnormalities and she is not significantly hypoxic. Allergies fentanyl Allergy (Severe, Verified 07/30/20 21:09) Hives butorphanol tartrate [From Stadol] Allergy (Verified 07/30/20 21:09) confusion metoclopramide HCl [From Reglan] Allergy (Verified 07/30/20 21:09) Shortness of breath sulfamethoxazole [From Bactrim] Allergy (Verified 07/30/20 21:09) Hives/Rash trimethoprim [From Bactrim] Allergy (Verified 07/30/20 21:09) Hives/Rash Bactrim DS Allergy (Intermediate, Uncoded 07/30/20 21:09) Nausea/Vomiting Home Medications: Raltegravir Potassium [Isentress] 400 mg PO BID 02/28/12 Lorazepam [Ativan] 2 mg PO BID* PRN 04/02/12 Sertraline [Zoloft*] 200 mg PO DAILY 09/15/12 Emtricitabine/Tenofov Alafenam [Descovy 200-25 mg Tablet] 1 tab PO BEDTIME 10/05/16 Esomeprazole Mag Trihydrate [Nexium] 40 mg PO BID 06/18/19 Triamterene/Hydrochlorothiazid [Triamterene-Hctz 37.5-25 mg Cp] 1 each PO DAILY 06/18/19 Metoprolol Tartrate 100 mg PO BID #60 tablet 02/03/20 Albuterol Inhaler [Ventolin Inhaler*] 2 puff IH Q6H PRN #1 hfa.aer.ad 04/02/20 Budesonide/Formoterol Fumarate [Symbicort 160-4.5 Mcg Inhaler] 2 puff IH BID #1 hfa.aer.ad 04/02/20 predniSONE [Prednisone*] 20 mg PO SEECOM #15 tab 04/02/20 Hydralazine HCl 50 mg PO BID #60 04/03/20 Arformoterol Tartrate [Brovana] 15 mcg NEB BIDRESP #60 vial.neb 04/08/20 Amiodarone HCl [Cordarone Tab] 200 mg PO DAILY 07/30/20 Amlodipine [Norvasc*] 1 tab PO DAILY 07/30/20 Apixaban [Eliquis] 1 tab PO BID 07/30/20 Bupropion HCl [Wellbutrin Xl] 1 tab PO DAILY 07/30/20 Buspirone HCl [Buspar] 3 tab PO BID 07/30/20 Lisinopril [Zestril] 1 tab PO BID 07/30/20 - Past Medical/Surgical History Has patient received pneumonia vaccine in the past: No Diabetic: No -: HIV diag ~ [address] Yohan Cardenas in [place] -: CAD -: Bipolar disorder Dr Krause in [place] -: Hypertension -: COPD -: Tobacco abuse -: former Alcohol abuse -: Anemia likely of chronic disease -: Hyperlipidemia -: GERD with hiatal hernia -: Appendectomy -: Cholecystectomy -: left and right shoulder rotator cuff repair -: Right foot repair -: Right shoulder replacement -: left shoulder rotated cuff -: hiatal hernia repair may 2020 Psychosocial/ Personal History: She lives at home. She is not . - Family History Father Medical History: Heart disease, Kidney disease Mother Medical History: Other (see notes) Notes: Epilepsy, chronic pain - Social History Smoking Status: Former smoker Alcohol use: No CD- Drugs: No Caffeine use: Yes Place of Residence: Home Review of Systems 10-point ROS is otherwise unremarkable Physical Examination - Vital Signs Temperature: 97.0 F Blood Pressure: 199/96 Pulse: 73 Respirations: 19 Pulse Ox (%): 96 - Physical Exam General: Alert, In no apparent distress, Oriented x3 HEENT: Atraumatic, Normocephalic Neck: Supple Respiratory: Crackles/rales, Expiratory wheezes Cardiovascular: Regular rate/rhythm, Normal S1 S2, No murmurs Gastrointestinal: Normal bowel sounds, Hypoactive, Soft and benign, Non- distended, No rebound, No guarding Musculoskeletal: No clubbing, No swelling Integumentary: No rashes Neurological: Normal gait, Normal speech, Normal strength at 5/5 x4 extr, Normal tone, Sensation intact, Cranial nerves 3-12 intact - Studies Laboratory Data (last 24 hrs) 07/30/20 15:38: Sodium 146 H, Potassium 3.2 L, BUN 22 H, Creatinine 0.74, Glucose 92, Magnesium 2.3 07/30/20 15:38: WBC 6.20, Hgb 10.3 L, Hct 33.2 L, Plt Count 204 Assessment & Plan - Problems (Diagnosis) (1) COPD exacerbation Current Visit: Yes Status: Acute (2) HIV (human immunodeficiency virus infection) Current Visit: Yes Status: Acute (3) Atrial fibrillation Current Visit: No Status: Acute (4) Depressive disorder Onset Date: 05/26/15 Current Visit: No Status: Acute (5) Diabetes mellitus Current Visit: No Status: Acute (6) Gastritis Current Visit: No Status: Acute (7) Hematochezia Onset Date: 02/02/16 Current Visit: No Status: Acute (8) Hypertension Current Visit: No Status: Acute (9) TIA (transient ischemic attack) Onset Date: 06/19/18 Current Visit: No Status: Acute - Plan Plan: 1. Continue with albuterol and Atrovent nebs 2. Continue with IV steroids 3. Outpatient follow with Pulmonary and Infectious Disease 4. Monitor oxygen saturations 5. Repeat labs 6. Repeat chest x-ray in the morning if symptoms worsen 7. GI and DVT prophylaxis Discharge Plan: Home Plan to discharge in: 24 Hours - Advance Directives Does patient have a Living Will: No Does patient have a Durable POA for Healthcare: No - Code Status/Comfort Care Code Status Assessed: Yes Code Status: Full Code Critical Care: No Time Spent Managing PTS Care (In Minutes): 45
[2020-07-31] MEDS ORDERED: cloNIDine HCL 0.1 MG TAB PO ONE (10:29)
[2020-07-31] MEDS: CEFTRIAXONE/SWI 1gm 1 GM/10 ML SYR IVP SCH (10:40)
[2020-07-31 11:24] VITALS: O2SAT 96
[2020-07-31] MEDS ORDERED: METHYLPREDNISOLONE 125 MG INJ IV SCH (12:00)
[2020-07-31 13:05] VITALS: BP 151/93; TEMP 97.5
--- NOTE | 2020-08-19 01:35 | P.DS ---
Discharge Date: 07/31/20 Disposition: ROUTINE DISCHARGE Discharge Condition: GOOD Reason for Admission: COPD exacerbation - Problems (1) COPD exacerbation Status: Acute (2) HIV (human immunodeficiency virus infection) Status: Acute (3) Atrial fibrillation Status: Acute (4) Depressive disorder Onset Date: 05/26/15 Status: Acute (5) Diabetes mellitus Status: Acute (6) Gastritis Status: Acute (7) Hematochezia Onset Date: 02/02/16 Status: Acute (8) Hypertension Status: Acute (9) TIA (transient ischemic attack) Onset Date: 06/19/18 Status: Acute Brief History of Present Illness: Patient is a 65-year-old female came to the hospital with shortness of breath. Patient has a history of COPD and has been in the emergency room on numerous occasions. She is normally treated in the emergency room. She came to the hospital for further evaluation. Patient was seen by emergency room physician but because she has been in the ER the day before they wanted to observe her through the night. Patient has a history of HIV and she states she is compliant with the medication. On likely to have an opportunistic infection as her chest x-ray does not show any significant abnormalities and she is not significantly hypoxic. Hospital Course: Patient has done well during hospital stay. We gave patient nebs, steroids, and antibiotics. She has frequent COPD exacerbations. At this time, patient is stable for discharge home. Vital Signs/Physical Exam: Temp Pulse Resp BP Pulse Ox 97.5 F 68 18 151/93 H 97 07/31/20 12:00 07/31/20 12:00 07/31/20 12:00 07/31/20 12:00 07/31/20 12:00 General: Alert, In no apparent distress, Oriented x3 Laboratory Data at Discharge: WBC 6.30 K/uL (4.3-10.9) 07/31/20 05:59 Hgb 10.2 g/dL (12.0-15.0) L 07/31/20 05:59 Hct 32.4 % (36.0-45.0) L 07/31/20 05:59 Plt Count 220 K/uL (152-406) 07/31/20 05:59 Sodium 142 mmol/L (136-145) 07/31/20 05:59 Potassium 3.7 mmol/L (3.5-5.1) 07/31/20 05:59 BUN 19 mg/dL (7-18) H 07/31/20 05:59 Creatinine 0.66 mg/dL (0.55-1.3) 07/31/20 05:59 Glucose 142 mg/dL (74-106) H 07/31/20 05:59 Magnesium 2.3 mg/dL (1.8-2.4) 07/30/20 15:38 Total Bilirubin 0.2 mg/dL (0.2-1.0) 07/31/20 05:59 AST 41 U/L (15-37) H 07/31/20 05:59 ALT 45 U/L (12-78) 07/31/20 05:59 Alkaline Phosphatase 90 U/L (45-117) 07/31/20 05:59 Home Medications: Raltegravir Potassium [Isentress] 400 mg PO BID 02/28/12 Lorazepam [Ativan] 2 mg PO BID* PRN 04/02/12 Sertraline [Zoloft*] 200 mg PO DAILY 09/15/12 Emtricitabine/Tenofov Alafenam [Descovy 200-25 mg Tablet] 1 tab PO BEDTIME 10/05/16 Esomeprazole Mag Trihydrate [Nexium] 40 mg PO BID 06/18/19 Triamterene/Hydrochlorothiazid [Triamterene-Hctz 37.5-25 mg Cp] 1 each PO DAILY 06/18/19 Metoprolol Tartrate 100 mg PO BID #60 tablet 02/03/20 Albuterol Inhaler [Ventolin Inhaler*] 2 puff IH Q6H PRN #1 hfa.aer.ad 04/02/20 Budesonide/Formoterol Fumarate [Symbicort 160-4.5 Mcg Inhaler] 2 puff IH BID #1 hfa.aer.ad 04/02/20 Hydralazine HCl 50 mg PO BID #60 04/03/20 Arformoterol Tartrate [Brovana] 15 mcg NEB BIDRESP #60 vial.neb 04/08/20 Amiodarone HCl [Cordarone*] 200 mg PO DAILY 07/30/20 Amlodipine [Norvasc*] 1 tab PO DAILY 07/30/20 Apixaban [Eliquis] 1 tab PO BID 07/30/20 Bupropion HCl [Wellbutrin Xl] 1 tab PO DAILY 07/30/20 Buspirone HCl [Buspar] 3 tab PO BID 07/30/20 Lisinopril [Zestril] 1 tab PO BID 07/30/20 Albuterol Neb [Proventil 0.083% Neb Soln] 2.5 mg NEB [id number] #60 amp 07/31/20 Ipratropium Neb [Atrovent*] 0.5 mg NEB [id number] #60 amp 07/31/20 predniSONE [Prednisone*] 20 mg PO DAILY #15 tab 07/31/20 New Medications: Ipratropium Neb [Atrovent*] 0.5 mg NEB [id number] #60 amp predniSONE [Prednisone*] 20 mg PO DAILY #15 tab Albuterol Neb [Proventil 0.083% Neb Soln] 2.5 mg NEB [id number] #60 amp Physician Discharge Instructions: PROBLEM: COPD exacerbation GOAL: Clear understanding of disease process INSTRUCTIONS: Diet: heart healthy Activity: Fall precautions OK TO DC IV AND DC HOME FOLLOW-UP WITH PRIMARY CARE PROVIDER IN 1-2 WEEKS FOLLOW-UP WITH Pulmonary and Infectious Disease IN 1-2 WEEKS RETURN TO THE ER IF symptoms worsen CALL or TEXT DR. BARKLEY AT [phone] IF ANY QUESTIONS REGARDING HOSPITAL STAY. PLEASE CALL THE FLOOR AT [phone] IF ANY MEDICATION OR NURSING QUESTIONS. Diet: AHA Activity: Fall precautions Followup: Moody Sosa MD [ACTIVE - CAN ADMIT] - 1-2 Weeks (Call to make an appointment. ) Lacey VARELA,Lele Peterson DO [Primary Care Provider] - Oscar Garcia MD [ACTIVE - CAN ADMIT] - 1-2 Weeks (Call to make an appointmen t. ) Time spent managing pt's care (in minutes): 36
== END 2020-07-31 14:59 | disposition home or self-care (01) ==
LOC: ER 14:09 → ERHOLD 16:23 → 2ND 19:43
PROVIDERS: ADMIT Hospitalist; ATTEND Hospitalist
DX: J44.1 Chronic obstructive pulmonary disease with (acute) exacerbation (principal); I48.91 Unspecified atrial fibrillation; E11.9 Type 2 diabetes mellitus without complications; I10 Essential (primary) hypertension; F32.9 Major depressive disorder, single episode, unspecified; K29.70 Gastritis, unspecified, without bleeding; G43.909 Migraine, unspecified, not intractable, without status migrainosus; F31.9 Bipolar disorder, unspecified; G89.29 Other chronic pain; I85.00 Esophageal varices without bleeding; F41.9 Anxiety disorder, unspecified; K75.9 Inflammatory liver disease, unspecified; I25.10 Atherosclerotic heart disease of native coronary artery without angina pectoris; D64.9 Anemia, unspecified; E78.5 Hyperlipidemia, unspecified; K21.9 Gastro-esophageal reflux disease without esophagitis; K44.9 Diaphragmatic hernia without obstruction or gangrene; F10.11 Alcohol abuse, in remission; Z21 Asymptomatic human immunodeficiency virus [HIV] infection status; Z86.73 Personal history of transient ischemic attack (TIA), and cerebral infarction without residual deficits; Z87.891 Personal history of nicotine dependence; Z88.6 Allergy status to analgesic agent; Z88.3 Allergy status to other anti-infective agents; Z88.8 Allergy status to other drugs, medicaments and biological substances; Z82.49 Family history of ischemic heart disease and other diseases of the circulatory system; Z84.1 Family history of disorders of kidney and ureter
CPT/HCPCS: 93005; 85025 ×2; 80048; 36415; 83735; 84484; 80053; 83880; 71045; 96375; 96374; 99285; J2270 ×4; J0696 ×2; J7030; J2930 ×2; J2405 ×2; J2920 ×2; G0378 ×3

== ENCOUNTER 2020-08-30 15:48 | Emergency (ER) | payer OTHER ==
--- OUTSIDE RECORDS SUMMARY | 2020-08-30 15:52 | XMS REPORT | Continuity of Care Document ---
:1955 Author Organization [facility] t Address [address] [place] [address] Care Team Providers Name Role Phone Asked, Pcp Primary Care Physician Unavailable Yazmin JENKINS Attending Clinician Meli SANCHEZ Attending Clinician Unavailable Carol Ann IZQUIERDO M. Attending Clinician Clark SANCHEZ Attending Clinician Unavailable Tremayne JENKINS, P. Attending Clinician Quinn JENKINS, Y.H. Attending Clinician Ronald DHILLON Attending Clinician Maren JENKINS Attending Clinician Michael Pinon MD Attending Clinician Shaheed Catalan Attending Clinician Mario Tapia MD Attending Clinician Nahum SANCHEZ Attending Clinician Unavailable Curt Mitchell MD Attending Clinician DO SYL Attending Clinician Unavailable YAZMIN Admitting Clinician Unavailable DO SYL Admitting Clinician Unavailable Payers Payer Name Policy Type Policy Effective Date Expiration Date Sour ce Number UHC MEDICAREUHC [id number] 2019 [place] DUAL COMPLETE 00:00:00 Yazdanism [id number]/05/24 020-PresentHMO Problems Condition Condition Condition Status Onset Resolution Last Treating Co mments Source Name Details Category Date Date Treatment Clinician Date CCL / EPS Diagnosis Active 2020-08-29 Memoria PVI 3-30 05:29:00 l ABLATION CCL / 00:00: Eldred W/ CARTO / EPS PVI 00 GA / T ABLATION W/ CARTO / GA / T Active 08/19/2020 [facility] Food Food Disease Active 2019-05 [place] intoleranc intoleranc 2-04 Me thodi e in [...] to drug Butorpha Propensi Active Hallucinatio 2019-05 [place] nol ty to ns 2-04 Methodi adverse 00:00: st reaction 00 s to drug Metoclop Propensi Active Andreato n ramide ty to 5-04 Methodi Hcl adverse 00:00: st reaction 00 s to drug Family History Family Member Diagnosis Comments Start Date Stop Date Source Natural father Hypertension Derrick Yazdanism Natural father Kidney disease Andreato n Yazdanism Social History Social Habit Start Date Stop Date Quantity Comments Source History of tobacco Current smoker Ho elena Yazdanism use Exposure to Not sure Meza Metho dist SARS-CoV-2 (event) Cigarettes smoked 2020-08-15 2020-08-15 Derrick Eganist current (pack per 00:00:00 00:00:00 day) - Reported Tobacco use and 2020-08-15 2020-08-15 Never used Meza M ethodist exposure 00:00:00 00:00:00 Alcohol intake 2020-08-15 2020-08-15 Current drinker Porsha on Yazdanism 00:00:00 00:00:00 of alcohol (finding) Alcohol Comment 2016-09-23 2016-09-23 rare Derrick Corbin ethodist 00:00:00 00:00:00 [birth year] Derrick Corbin ethodist 00:00:00 00:00:00 Smoking Status Start Date Stop Date Source Former smoker 2020-08-15 00:00:00 2020-08-15 00:00:00 Derrick Yazdanism Medications Ordered Filled Start Stop Current Ordering Indication Dosage Frequency Signature Comments Components Source Medication Medication Date Date Medication? Clinician (SIG) Name Name clobetasol Yes 1{appli Q.5D Apply 1 [place] (TEMOVATE) 3-26 cation} applicatio Methodi 0.05 % 12:07: n st ointment 11 topically 2 (two) times a day. (affected area in groin) hydrALAZINE Yes 50mg QD Take 50 mg Meza (APRESOLINE 3-26 by mouth Meth jason ) 50 MG 12:07: nightly. st tablet 11 busPIRone Yes 20mg QD Take 20 mg [place] (BUSPAR) 10 3-26 by mouth Meth jason MG tablet 12:07: every st 11 morning. busPIRone Yes 20mg QD Take 20 mg [place] (BUSPAR) 10 3-26 by mouth Meth jason MG tablet 12:07: nightly. st 11 LORAZepam Yes 2mg QD Take 2 mg [place] (ATIVAN) 2 3-26 by mouth Metho di MG tablet 12:07: every st 11 morning. acetaminoph Yes 1000mg Q.5D Take 1,000 Meza en 3-26 mg by Methodi (TYLENOL) 12:07: mouth 2 st 500 MG 11 (two) tablet times a day as needed for headaches. albuterol Yes 1{puff} Q4H Inhale 1 [place] sulfate 90 3-26 puff every Met hodi mcg/actuati 12:07: 4 (four) st on aero 11 hours as powdr needed breath act (shortness w/sensor of breath or wheezing). budesonide- Yes 1{puff} QD Inhale 1 Meza formoteroL 3-26 puff every Met hodi (SYMBICORT) 12:07: morning. st 160-4.5 11 mcg/actuati on inhaler buPROPion Yes 150mg QD Take 150 [place] (WELLBUTRIN 3-26 mg by Methodi ) 100 MG 12:07: mouth st tablet 11 daily. lisinopril Yes 40mg Q.5D Take 40 mg [place] (PRINIVIL,Z 3-26 by mouth 2 Me thodi ESTRIL) 40 12:07: (two) st mg tablet 11 times a day. metoprolol Yes 100mg Q.5D Take 100 [place] tartrate 3-26 mg by Methodi (LOPRESSOR) 12:07: mouth 2 st 100 mg 11 (two) tablet times a day. amLODIPine Yes 10mg QD Take 10 mg [place] (NORVASC) 3-26 by mouth Method i 10 mg 12:07: daily. st tablet 11 LORAZepam Yes 2mg QD Take 2 mg [place] (ATIVAN) 2 -26 by mouth Metho di MG tablet 12:07: nightly as st 11 needed for anxiety. sertraline Yes 200mg QD Take 200 [place] (ZOLOFT) 3-26 mg by Methodi 100 MG 12:07: mouth st tablet 11 daily. esomeprazol Yes 40mg Q.5D Take 40 mg Meza e (NexIUM) 3-26 by mouth 2 Met hodi 40 MG 12:07: (two) st capsule 11 times a day. montelukast 2020- No 10mg QD Take 10 mg Meza (SINGULAIR) 07-28 by mouth Met hodi 10 mg 09:16: 00:[address] tablet 50 :00 mirtazapine 2020- No 15mg QD Take 15 mg Meza (REMERON) 07-28 by mouth Metho di 15 MG 09:16: 00:[address] tablet 43 :00 needed (insomnia) . amIODarone 2019-05- No 200mg QD Take 1 [place] (PACERONE) 2-12 01-11 tablet Method i 200 MG 00:00: 23:59 ([address] tablet 00 :00 total) by mouth daily for 30 days. pantoprazol 2019-05 No 40mg Q.5D Take 1 [...] 2019-05- No 3mL Q.25D Take 3 mL [place] -albuteroL 07-04 by Rogers (DUO-NEB) 00:00: 23:59 nebulizati s t 0.5-2.5 00 :00 on every 4 mg/3 mL (four) nebulizer hours while awake for 30 days. budesonide 2019-05 No Simple .5mg Q.5D Take 2 mL [place] (PULMICORT) 07-04 chronic (0.5 mg M ethodi [...] No acute pain 1{tbl} Q6H Take 1 [place] en-codeine 07-04 tablet by Met loredo (TYLENOL [...] methocarbam 2019-05 No 1000mg Q.25D Take 2 Meza oL 07-04 tablets Methodi (ROBAXIN) 00:00: 23:59 (1,[address] 500 MG 00 :00 total) by tablet mouth 4 (four) times a day for 7 days. apixaban 2019-05 No 5mg Q.5D Take 1 [place] (ELIQUIS) 5 07-04 tablet (5 Me thodi mg tablet 00:00: 00:00 mg total) st 00 :00 by mouth 2 (two) times a day. ARIPiprazol 2019-05 No 5mg Take 1 [place] e (ABILIFY) 07-04 tablet (5 Me thodi 5 MG tablet 00:00: 00:00 mg total) st 00 :00 by mouth once for 1 dose. naloxone 4 2019-05 No 1{spray 1 spray Meza mg/actuatio 2-02 22-08 } into each Me thodi n 00:00: 00:[address] spray,non-a 00 :00 once as erosol needed (breathing less than [...] tablet 20:00: 00:00 st 12 :00 DESCOVY 2017-0 Yes 1{tbl} QD Take 1 [place] [...] MRNA 2020-07-23 Completed [place] VACCINATION 00:00:00 Y[facility]danism PFIZER COVID-19 MRNA 2020-07-02 Completed [place] VACCINATION 00:00:00 Yazdanism Vital Signs Vital Name Observation Time Observation Value Comments Source Body height 2020-08-15 12:05:00 162.6 cm Derrick Jean Body weight 2020-08-15 12:05:00 97.523 kg Derrick Jean BMI 2020-08-15 12:05:00 36.90 kg/m2 Derrick Jean Systolic blood 2020-07-28 08:48:00 179 mm[Hg] Andreato n Yazdanism pressure Diastolic blood 2020-07-28 08:48:00 99 mm[Hg] Porsha on Yazdanism pressure Heart rate 2020-07-28 08:48:00 60 /min Derrick Jean Body temperature 2020-07-28 08:48:00 36 Amina [place] Respiratory rate 2020-07-28 08:48:00 17 /min [place] Oxygen saturation in 2020-07-28 08:48:00 96 /min Derrick Jean Arterial blood by Pulse oximetry Procedures Procedure Date / Time Performing Source Performed Clinician NM GASTRIC EMPTYING 2020-08-27 Eliseo Arce 14:05:[address] CHEST WO CONTRAST ABDOMEN WO 2020-08-21 Eliseo Arce CONTRAST 10:20:00 Yazdanism [place] ESOPHAGRAM SINGLE CONTRAST 2020-08-13 [facility] 10:25:00 Yazdanism [id number] 2020-05-07 Derrick Engel 00:00:00 Historical Yazdanism BASIC METABOLIC PANEL 2020-05-02 Pau Ott Meza 09:08:00 Yazdanism HC COMPLETE BLD COUNT W/AUTO DIFF 2020-05-02 Pau Ott 09:08:00 Yazdanism MAGNESIUM LEVEL 2020-05-02 Pau Ott [place] 09:08:00 Yazdanism ESTIMATED GFR 2020-05-02 Eliseo Arce 09:08:00 Yazdanism CBC HEMOGRAM 2020-05-01 Idalmis Montilla Meza 05:20:00 Yazdanism BASIC METABOLIC PANEL 2020-05-01 Idalmis Montilla Jimi [place] 04:00:00 Yazdanism ESTIMATED GFR 2020-05-01 MontillaIdalmis [place] 04:00:00 Yazdanism HEPATIC FUNCTION PANEL 2020-05-01 MontillaIdalmis [place] 04:00:00 Yazdanism THYROID STIMULATING HORMONE 2020-05-01 MontillaIdalmis ston 04:00:00 Yazdanism US DUPLEX VENOUS UPPER EXTREMITY 2020-04-30 Del Ceasar Jurado [place] BILATERAL 17:36:00 Yazdanism XR CHEST 2 VW 2020-04-30 Vu, Pau Fernández [place] 16:18:36 Yazdanism MIDLINE INSERTION ATTEMPT - 2020-04-30 [facility] [place] UNSUCCESSFUL 11:14:34 Yazdanism XR ABDOMEN 1 VW PORTABLE 2020-04-30 AtascaderoGracie gómez [place] 09:45:00 Rhonda Yazdanism ECG 12-LEAD 2020-04-30 Tru, Pau Fernández [place] 09:06:58 Yazdanism IA AN ELECTIVE ENDOTRACHEAL AIRWAY 2020-04-28 Carlee Malloy Reg grady [place] 14:57:57 Yazdanism REPAIR, HIATAL HERNIA, 2020-04-28 Eliseo Arce LAPAROSCOPIC, ROBOT-ASSISTED 13:38:00 Met hodist ESOPHAGOGASTRODUODENOSCOPY (EGD) 2020-04-28 Eliseo Arce 13:38:00 Yazdanism POC GLUCOSE 2020-04-28 Eliseo Arce 09:01:00 Yazdanism SURGICAL PATHOLOGY REQUEST 2020-04-28 Eliseo Arce on 08:27:00 Yazdanism BASIC METABOLIC PANEL 2020-04-28 Carlos [place] 02:11:00 On License Of [facility] Yazdanism HC COMPLETE BLD COUNT W/AUTO DIFF [facility] 02:11[facility]00 On [facility] Yazdanism MAGNESIUM LEVEL 2020-04-28 Carlos [place] 02:11:00 On License Of [facility] Yazdanism PHOSPHORUS LEVEL 2020-04-28 [facility] 02:11:00 On License Of [facility] Yazdanism PROTHROMBIN TIME WITH INR 2020-04-28 Rashida Gonzalez n 02:11:00 On License Of [facility] Yazdanism PARTIAL THROMBOPLASTIN TIME (PTT) 2020-04-28 [facility] 02:11:00 On [facility] Of [facility] Yazdanism ESTIMATED GFR 2020-04-28 Eliseo Arce 02:11:00 Yazdanism TYPE AND SCREEN 2020-04-28 Eliseo Arce 02:11:00 Yazdanism POC GLUCOSE 2020-04-27 Eliseo Arce 23:38:00 Yazdanism POC GLUCOSE 2020-04-27 Eliseo Arce 20:14:00 Yazdanism TTE COMPLETE, WO CONTRAST, W 2020-04-27 Nieves Hyde [facility] DOPPLER ([id number]) 15:00:00 Yazdanism POC GLUCOSE 2020-04-27 Eliseo Arce 12:30:00 Yazdanism BASIC METABOLIC PANEL 2020-04-27 Eliseo Arce 06:34:00 Yazdanism ESTIMATED GFR 2020-04-27 Eliseo Arce 06:34:00 Yazdanism POC GLUCOSE 2020-04-26 Eliseo Arce 21:18:00 Yazdanism ECG 12-LEAD 2020-04-26 Nieves Hyde 20:24:31 Yazdanism COVID-19 QUALITATIVE PCR 2020-04-26 [facility] [place] 15:44:00 On [facility] Yazdanism HC COMPLETE BLD COUNT W/AUTO DIFF 2020-04-26 [facility] [place] 03:05:00 On License Of [facility] Yazdanism BASIC METABOLIC PANEL 2020-04-26 [facility] [place] 03:05:00 On License Of [facility] Yazdanism MAGNESIUM LEVEL 2020-04-26 [facility] [place] 03:05:00 On License Of [facility] Yazdanism PHOSPHORUS LEVEL 2020-04-26 [facility] [place] 03:05:00 Luis Yazdanism CD 4 SUBSET 2020-04-26 Eliseo Arce 03:05:00 Yazdanism ESTIMATED GFR 2020-04-26 Eliseo Arce 03:05:00 Yazdanism MISCELLANEOUS REFERRAL TEST 2020-04-26 Eliseo Arce ton 03:05:00 Yazdanism POTASSIUM LEVEL 2020-04-25 Eliseo Arce 21:04:00 Yazdanism HC COMPLETE BLD COUNT W/AUTO DIFF 2020-04-25 Carlos [place] 18:51:00 Luis Yazdanism BASIC METABOLIC PANEL 2020-04-25 Shantelleisaimitchell [place] 18:51:00 Luis Yazdanism MAGNESIUM LEVEL 2020-04-25 Derrick Gonzalez 18:51:00 Luis Yazdanism PHOSPHORUS LEVEL 2020-04-25 Derrick Gonzalez 18:51:00 Luis Jean ESTIMATED GFR 2020-04-25 Eliseo Arce 18:51:00 Yazdanism FL ESOPHAGRAM DOUBLE CONTRAST 2020-04-25 Eliseo Arce [place] 11:31:[address] CHEST WO CONTRAST ABDOMEN WO 2020-04-21, Yen[facility] CONTRAST PELVIS WO CONTRAST 08:15:34 Mario valadez HC COMPLETE BLD COUNT W/AUTO DIFF 2020-04-21, Onin-Gee [place] 07:22:00 Mario Jean COMPREHENSIVE METABOLIC PANEL 2020-04-21, [facility] 07:22:00 Mario Jean LIPASE LEVEL 2020-04-21, Jolene-Gee Meza 07:22:00 Mario Jean LACTIC ACID LEVEL, SEPSIS - NOW 2020-04-21[facility] AND REPEAT 2X EVERY 3 HOURS 07:22:00 Mario valadez ESTIMATED GFR 2020-04-21, Yen-Gee Meza 07:22:00 Mario Jean Plan of Care Planned Activity Planned Date Details Comments Source Future Scheduled 2020-12-21 INFLUENZA VACCINE Andreato n Y[facility]danism Test 00:00:00 [code = INFLUENZA VACCINE] Future Scheduled 2006-01-22 BREAST CANCER [place] Me thodist Test 00:00:00 SCREENING [code = BREAST CANCER SCREENING] Future Scheduled 2006-01-22 COLONOSCOPY SCREENING [place] Y[facility]danism Test 00:00:00 [code = COLONOSCOPY SCREENING] Future Scheduled 2006-01-22 SHINGLES VACCINES [place] Test 00:00:00 (#1) [code = SHINGLES VACCINES (#1)] Future Scheduled 1977-01-22 Screening for [facility] thodist Test 00:00:00 malignant neoplasm of cervix (procedure) [code = 110069454] Future Scheduled 1966-01-22 DIABETES: RETINAL EYE [place] [facility]ism Test 00:00:00 EXAM [code = DIABETES: RETINAL EYE EXAM] Future Scheduled 1966-01-22 DIABETIC FOOT EXAM Porsha on Yazdanism Test 00:00:00 [code = DIABETIC FOOT EXAM] Encounters Start End Encounter Admission Attending Care Care Encounter Source Date/Time Date/Time Type Type Clinicians Facility Department ID 2020-08-29 2020-08-29 Outpatient [facility] CAR [id number] [facility] 05:20:00 05:20:00 2020-08-27 2020-08-27 Outpatient [facility] [id number] [place] 00:00:00 00:00:00 RAY [address] 2020-08-21 2020-08-21 Outpatient YAZMIN [facility] [id number] [place] 00:00:00 00:00:00 RAY [address] 2020-08-13 2020-08-13 Outpatient YAZMIN [facility] [id number] [place] 00:00:00 00:00:00 RAY [address] 2020-07-28 2020-07-28 Outpatient YAZMIN [facility] [id number] [place] 00:00:00 00:00:00 RAY 434 Method i 2020-07-23 2020-07-23 Outpatient TREMAYNE [facility] [id number] [place] 00:00:00 00:00:00 OMID 402 Ne thodi 2020-07-02 2020-07-02 [facility]patient [facility] [id number] [place] 00:00:00 00:00:[address] 2020-06-23 2020-06-23 Outpatient YAZMIN [facility] [id number] [place] 00:00:00 00:00:00 RAY [address] 2020-06-04 2020-06-04 [facility] [id number] 08:13:41 09:28:25 Visit [facility] [id number] [facility] [id number] 2020-04-25 2020-05-03 Inpatient YAZMIN [facility] [id number] [place] 00:00:00 00:00:00 RAY [address] 2020-04-25 2020-04-25 Outpatient YAZMIN [facility] [id number] [place] 00:00:00 00:00:00 RAY [address] 2020-04-25 2020-04-25 Outpatient YAZMIN [facility] [id number] [place] 00:00:00 00:00:00 RAY [address] 2020-04-21 2020-04-21 Emergency PETE TAPIA [facility] [id number] [place] 00:00:00 00:00:[address] Results Test Description Test Time Test Comments Results Result Sour e Comments NM Gastric 2020-08-27 Jacob [place] Emptying 18:14:[address] 08/27/2020 6:17 PM CDT PROCEDURE : NM GASTRIC EMPTYINGINDICATION : Abdominal bloating. TECHNIQUE: 0.5 mCi of Tc-99m sulfur colloid was mixed with an egg and cooked. The egg was fed to the patient and dynamic planar images of the abdomen were acquired for 90 minutes. Delayed images were obtained at 4 hours. FINDINGS: The initial gastric emptying rate is delayed. The half-time of emptying is 323 minutes. Normal range is between 45 and 100 minutes. Delayed images demonstrate complete emptying. IMPRESSION: 1. Moderately to markedly delayed initial gastric emptying rate, with complete emptying by 4 hours. [facility]-[id number] Miscellaneous referral test 2020-05-09 15:24:58 Test Item Value Reference Range Interpretation Comme nts [facility] test name (test HIV-1 RNA QUAL PCR code = 2566) [facility] test result (test see note Human Immunodeficiency Virus 1 code = 1730) (HIV-1) by Qual itative Bone Char Kiln Operator-M ediated Amplification ( TMA) [facility] test code 0629435 H IV-1 by Qualitative TMA See Note [...] HIV-RNA Qualita tive Assay (Gen-Probe). Test performed by:[facility] [address]MAN[address] [place] [address] (test code = KYLE) HIVQL - HIV-1 RNA, Qualitative TMA (FROZEN)ARUP Test Code: 3903207Vyajqn: plasma Derrick Padilla duplex venous upper [id number] 22:57:00Interface, Radiology Results In - 04/30/2020 10:58 PM CST Vascular Ultrasound Laboratory Upper Extremity Venous Report [address] [place] [address] Pat.Name: LIO WATTS Pat.ID: [id number] .Date: 04/30/2020 Refer.MD: ELISEO ARCE MD Exam Time: 5:04:00PM Study Type:UE Venous Age: 9 1955,65Y Sex: FEMALE Sonogrphr: IBIS Espinosa RCS Pat. Stat.:Inpatient Room:[place] [address] 2020 Tape Vol: , CPT - 4: 61099 Echo Event ID:[id number] Order ID: [id number] Reason for Study:Arm swelling or pain, DVT suspected. History ofhiatal hernia, esophageal stricture, HIV, HTN, COPD, paroxysmal Afib,ROHAN.Procedures: Colorflow, Grayscale/2D, Pulsed wave DopplerRace: C SUMMARY: DUPLEX SCAN OBSERVATIONS Right LeftIJ Normal NormalSubclavian Normal [...] distal upper arm due to dressing and bandage.PRELIMINARY FINDINGS1. Total superficial v ein thrombosis of the right basilic vein.2. No evidence of deep vein thrombosis of the visualized veins.*Preliminary result reported to ASHLEY Santos @ 9875 on 04/30/20.PHYSICIAN INTERPRETATION Venous examination of the both upper extremities and neck demonstratedno evidence of deep venous thrombosis. Total superficial vein thrombosis of the right basilic vein. FINDINGS : Signed 04/30/2020 10:57 PMFrancis Cabral MD, [facility] MethodistXR Chest 2 [id number] 16:21:01Hm Interface, Radiology Results Incoming - 04/30/2020 4:24 PM CSTFormatting of this note might be di fferent from the original.EXAMINATION: XR CHEST 2 VWCLINICAL HISTORY: amio gttCOMPARISON: None.FINDINGS:Two views of the chest demonstrate mild cardiomegaly. Pulmonary vasculature is within normal limits.No consolidation or pleural effusion is seen. There is no evidence of pneumothorax. Low lung volume is noted.Bilateral shoulders arthroplasty changes are noted.IMPRESSION:No radiographic evidence of acute cardiopulmonary process or active disease of the chest.[id number] MethodistSurgical pathology [id number] 14:07:52 Test Item Value Reference Range Interpretation Comments Case number (test code = [id number]) Surgical pathology See link below for report (test code = PDF Lab Report [id number]) Result status (test code This is Final Report = [id number]) for [id number] [facility] 12 [id number] 12:40:32 Test Item Value Reference Range Interpretation [...] abnormality in Lateral leads- Meza MethodistMidline Unsuccessful [id number] 11:14:34ANicole zhang RN 04/30/2020 11:25 AMMidline Unsuccessful [...] to advance completely . Procedure aborted and RN Shea able to place a PIV g.20 in lower arm .[place] MethodistXR Abdomen 1 Vw [id number] 10:20:14 Hm Interface, Radiology Results Incoming 04/30/2020 10:23 AM CST EXAMINATION: XR ABDOMEN 1 VW PORTABLECLINICAL HISTORY: Abdominal pain post opCOMPARISON: No priorIMPRESSION:1.Residual barium within the colon throughout. No small bowel ob struction noted.[facility]-[id number] [id number] 14:57:57Carlee Malloy MD 04/28/2020 2:59 PMAirwayPerformed by: Carlee Malloy MDAuthorized by: Carlee Malloy MD Location: ORUrgency: ElectiveDifficult Airway: No Anesthesiologist: Kvng Malloy, FLORENTINesident/COMPENSATION SPECIALIST/AA: Allan Morocho DOPerformed by: resident/COMPENSATION SPECIALIST/AAPreoxygenated gbpf383% O2: Yes C- spine Precautions Maintained Throughout: [...] No Number of Attempts at Approach: 1[facility] MethodistTransthoracic Echocardiogram Complete, (w Contrast, Strain and 3D if needed)2020-04-27 18:20:00Interface, Radiology Results In - 04/27/2020 6:21 PM CST Echocardiography Report [id number] [address] Pat.Name: LIO WATTS Marta.ID: [id number] .Date: 04/27/2020 Refer.MD: ELISEO ARCE MD Exam Time: 2:21:00 PM Study Type:Routine Echo Height: 64in Weight: 213lb BSA: 2.01 m2 Age: 9 1955,65Y Sex: FEMALE BP: 128/89 HR: 102 bpm Sonogrphr: SANKET Perkins Pat. Stat.:Inpatient Room: [facility] Study Status:Final Echo Event ID:[id number] Order ID: [id number] Reason for Study:Atrial FibrillationHistory / Clinical:Hypertension Procedures: 2D Echo, Colorflow Doppler, PortableRace: C SUMMARY: LV EF is normal. Estimated EF is 65-69%RV systolic function is normal.LA volume is severely enlarged. FINDINGS: LV: LV size is normal. LV EF is normal. Overall wall motion is normal. Estimated EF is 65-69%RV: RV size is normal. RVsystolic function is normal.LA: LA volume is severely [...] Insufficient TR jet to estimate PA systolic pressure.- MEASUREMENTS: ---- 2DParasternal Long [place] Ao An 2.2 cm LVPWd 1 cm [...] LVOT CI 3.1 l/m/m2 Signed 04/27/2020 06:20 PMMoBobby Bourgeois MethodistFL Esophagram Double [id number] 12:07:12Hm Interface, Radiology Results 04/25/2020 12:10 PM CST EXAMINATION: [place] ESOPHAGRAM DOUBLE CONTRASTCLINICAL HISTORY: R13.10 Dysphagia unspecified, K44.9 Diaphragmatic hernia without obstruction or gangrene, Dysphagia unexplained, dysphagia hiatal herniaCOMPARISON: Limited comparison with chest CT from April 21, 2020TECHNIQUE: Esophagram was performed with effervescent granules and barium.FLUOROSCOPIC TIME: 1.5 minutes.NUMBER OF IMAGES: 9 fluoroscopic images.IMPRESSION:No strictures. Normal esophageal mucosa.Nonspecificesophageal dysmotility, with mildly delayed esophageal emptying and scattered nonpropulsive tertiarycontraction waves.There is a moderately sized type III hiatal hernia. There was mild spontaneous marco roesophageal reflux.[id number] MethodistCT Chest Wo Contrast Abdomen Wo Contrast Pelvis Wo [id number] 09:23:55Hm Interface, Radiology Results 04/21/2020 9:27 AM CST EXAMINATION: CT CHEST WO CONTRAST ABDOMEN WO CONTRAST PELVIS WO CONTRASTCLINICAL HISTORY: abd pain hiatalCOMPARISON: None.TECHNIQUE: CT of the chest, abdomen and pelvis without intravenous contrast. Sagittal and coronal computerized reformatted images were also obtained.Absence of intravenous contrast decreases sensitivity for detection of focal lesions and vascular pathology. CT imaging was performed with iterative reconstruction techniques and/or automated exposure control to reduce radiation dose. FINDINGS:CHEST:LUNGS AND AIRWAYS: Dependent atelectasis. Additionalmore nodular consolidations in the posterior right lower [...] No focal hepatic lesions. No biliary ductal dilation.Status post cholecystectomy.SPLEEN: No splenomegaly.PANCREAS: No focal masses or ductal dilation. Punctate calcification.ADRENALS: No adrenal nodules.KIDNEYS: Few bilateral renal cysts, largest on the left measuring up to 4.2 cm. Punctate nonobstructing right calyceal stone. Right hilar vascular calcifications. No hydronephrosis or solid masses.GI TRACT: Moderate type III hiatal hernia. No boweldistention or wall thickening. The appendix is not definitively visualized, but there are no secondary signs of right lower quadrant inflammation.PERITONEUM/RETROPERITONEUM: No free air or fluid. No lymphadenopathy.VASCULATURE: Aortic atherosclerosis. There is ectasia of the infrarenal abdominal aorta measuring up to 2.3 cm.PELVIC ORGANS/BLADDER: Unremarkable.BONES AND SOFT TISSUES: Degenerative changes throughout the spine. Bilateral total shoulder arthroplasties.IMPRESSION:1.Moderate type III hiatal hernia.2.Groundglass and nodularity in the dependent lungs is largely due to hypoventilatory changes, although there could be a small component of superimposed aspiration. Given the nodularity involving some of the changes, recommend follow-up chest CT in 6 months.3.Main pulmonary artery is dilated up to 4.1 cm, which can be seen in but is not specific for pulmonary hypertension. Ascending aortais dilated up to 4.1 cm, and there is mild ectasia of the infrarenal abdominal aorta.4.Additional chr onic and incidental findings as detailed above.[facility]-[id number] and approved by vice president planning/fellow: Jenna Valenzuela M.D.I, Medhat Flowers Jr., M.D., personally reviewed the images and resident's/fellow's findings and agree with the final report.Derrick Reece, GC, TV,PCR, IN HOUSE 2019-04-21 15:38:00 Test Item Value Reference Range Interpretation Comments FT (test code = CHTR) Not detected (qualifier Not Detected N value) FT (test code = Not detected (qualifier Not Detected N NGONO) value) FT (test code = TRVG) Not detected (qualifier Not Detected N value) URINALYSIS WITH [id number] 10:57:00 Test Item Value Reference Range Interpretation Comments Color (test code = UCOLR) Dk. Yellow Clarity (test code = UCLAR) Hazy Glucose (test code = UGLUC) NEGATIVE NEGATIVE N Bilirubin (test code = UBILI) NEGATIVE NEGATIVE N Ketones (test code = UKET) NEGATIVE NEGATIVE N Specific Wallace (test code = 1.025 1.005-1.030 A USPGR) [...]
--- NOTE | 2020-08-30 18:06 | EDPHYS ---
Physician Documentation [facility] Name: Marjan Fleming Age: 65 yrs Sex: Female : 1955 Arrival Date: 08/30/2020 Time: 15:50 Bed 17 Private MD: ED Physician Ramon Baker HPI: 08/30 17:29 This 65 yrs old Female presents to ER via Wheelchair with complaints of Chest pm1 Pain. 17:29 The patient or guardian reports chest pain that is located primarily in the mid-sternal pm1 area. 17:29 Onset: this morning. The pain does not radiate. pm1 17:29 Associated signs and symptoms: Pertinent positives: vomiting, blurry vision. pm1 17:29 The chest pain is described as aching. Duration: The patient or guardian reports a pm1 single episode, that is still ongoing. Modifying factors: The symptoms are alleviated by nothing. the symptoms are aggravated by nothing. Severity of pain: in the emergency department the pain is unchanged. The patient has been recently seen by a physician: Patient was admitted to the hospital yesterday for a cardiac ablation. Patient was discharged this AM form the [facility]. Dr. Castellanos did the ablation. Patient reports that she had her current symptoms while she was in the hospital and was still discharged home. Historical: - Allergies: 16:17 Bactrim DS; iw 16:17 Fentanyl; iw 16:17 Stadol; iw 16:17 Reglan; iw 16:17 butorphanol tartrate; iw - PMHx: 16:17 Anxiety; Atrial Fib; Bipolar disorder; Chronic pain; COPD; esophageal varices; iw Hepatitis; HIV; Hypertension; Migraines; Panic Attacks; - PSHx: 16:17 Hernia repair; cardiac ablation; Cholecystectomy; Appendectomy; shoulder; iw - Immunization history:: Adult Immunizations up to date. - Social history:: Smoking status: Patient denies any tobacco usage or history of. ROS: 17:29 Constitutional: Negative for fever, chills, and weight loss. pm1 17:29 Respiratory: Negative for shortness of breath, cough, wheezing, and pleuritic chest pain, Back: Negative for injury and pain. 17:29 : Negative for injury, bleeding, discharge, and swelling, Skin: Negative for injury, rash, and discoloration, Neuro: Negative for headache, weakness, numbness, tingling, and seizure. 17:29 Cardiovascular: Positive for chest pain, Negative for edema. 17:29 Abdomen/GI: Positive for nausea, vomiting, Negative for abdominal pain, diarrhea. 17:29 MS/extremity: Positive for bilateral groin pain, Negative for decreased range of motion, deformity. Exam: 17:29 Constitutional: This is a well developed, well nourished patient who is awake, alert, pm1 and in no acute distress. Head/Face: Normocephalic, atraumatic. 17:29 Chest/axilla: Normal chest wall appearance and motion. Nontender with no deformity. No lesions are appreciated. 17:29 Skin: Warm, dry with normal turgor. Normal color with no rashes, no lesions, and no evidence of cellulitis. 17:29 Cardiovascular: Exam negative for acute changes, Rate: normal, Rhythm: regular, Pulses: no pulse deficits are appreciated, Heart sounds: normal, normal S1and S2, Edema: is not appreciated. 17:29 Respiratory: Exam negative for acute changes, respiratory distress, shortness of breath, Breath sounds: are clear throughout. 17:29 Abdomen/GI: Inspection: abdomen appears normal, Palpation: abdomen is soft and non-tender, in all quadrants. 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 Bilateral groin area with clean dressings without any signs of bleeding or discharge, no tenderness or swelling present, Circulation is intact in all extremities. 17:29 Neuro: Exam negative for acute changes, Orientation: is normal, Mentation: is normal, Motor: is normal, moves all fours. Vital Signs: 16:14 BP 131 / 87; Pulse 67; Resp 16; Temp 98.3; Pulse Ox 98% on R/A; Weight 95.25 kg; Height iw 5 ft. 4 in. (162.56 cm); 17:54 BP 128 / 89; Pulse 69; Resp 18; Pulse Ox 98% on R/A; bw 16:14 Body Mass Index 36.05 (95.25 kg, 162.56 cm) iw MDM: 16:30 Patient medically screened. pm1 17:40 Physician consultation: Chris Castellanos was contacted at 17:40, regarding consult, pm1 patient's condition, Dr. Castellanos agrees with the assessment that the patient does not need a cardiac work up in the ER because the patient was just discharged from the hospital today. She had an uneventful cardiac ablation for atrial fibrillation. The procedure was smooth and uneventful. She was stable throughout the hospital stay and she had no EKG changes. Patient's bilateral groin are non-tender without any signs of cellulitis. Discussed patient's EKG in the ER: sinus rhythm with a single premature supraventricular complex. Dr. Castellanos requested I discharge the patient home with T3 or tramadol for 3-5 days since his fellow did not prescribe pain medications for home. 18:05 Data reviewed: vital signs. Data interpreted: Pulse oximetry: on room air is 98 %. pm1 Interpretation: normal. Counseling: I had a detailed discussion with the patient and/or guardian regarding: the historical points, exam findings, and any diagnostic results supporting the discharge/admit diagnosis, the need for outpatient follow up, Jasmin, to return to the emergency department if symptoms worsen or persist or if there are any questions or concerns that arise at home. 18:10 ED course: TECHNOLOGY INTEGRATION SPECIALIST aware reviewed. pm1 Administered Medications: 17:59 Drug: morphine 4 mg Route: IM; Site: left deltoid; bw 17:59 Drug: Ondansetron (Zofran) 4 mg Route: PO; bw Disposition: 18:45 Co-signature as Attending Physician, Ramon Baker MD. rn Disposition: 08/30/20 18:06 Discharged to Home. Impression: Chest pain, unspecified. - Condition is Stable. - Discharge Instructions: Nonspecific Chest Pain. - Prescriptions for Tylenol- Codeine #3 300-30 mg Oral Tablet - take 2 tablets by ORAL route every 6 hours As needed; 30 tablet. - Medication Reconciliation Form, Thank You Letter, Antibiotic Education, Prescription Opioid Use form. - Follow up: Emergency Department; When: As needed; Reason: Worsening of condition. Follow up: Private Physician; When: 2 - 3 days; Reason: Recheck today's complaints, Continuance of care, Re-evaluation by your physician. - Problem is new. - Symptoms have improved. Signatures: Jacquelin Meier RN RN Ramon Baker MD MD rn Marinas, Patrick, MIRROR POLISHER MIRROR POLISHER pm1 Miranda Monzon RN RN bw Corrections: (The following items were deleted from the chart) 18:35 18:06 08/30/2020 18:06 Discharged to Home. Impression: Chest pain, unspecified. bw Condition is Stable. Forms are Medication Reconciliation Form, Thank You Letter, Antibiotic Education, Prescription Opioid Use. Follow up: Emergency Department; When: As needed; Reason: Worsening of condition. Follow up: Private Physician; When: 2 - 3 days; Reason: Recheck today's complaints, Continuance of care, Re-evaluation by your physician. Problem is new. Symptoms have improved. pm1
--- NOTE | 2020-08-30 18:06 | ER ---
Nurse's Notes [facility] Name: Marjan Fleming Age: 65 yrs Sex: Female : 1955 Arrival Date: 08/30/2020 Time: 15:50 Bed 17 Private MD: Diagnosis: Chest pain, unspecified Presentation: 08/30 16:14 Chief complaint: Patient states: had heart cath and ablation yesterday at [facility], started having chest pains and vomiting and blurry vision this morning. Coronavirus screen: At this time, the client does not indicate any symptoms associated with coronavirus-19. Ebola Screen: Patient negative for fever greater than or equal to 101.5 degrees Fahrenheit, and additional compatible Ebola Virus Disease symptoms Patient denies exposure to infectious person. Patient denies travel to an Ebola-affected area in the 21 days before illness onset. No symptoms or risks identified at this time. Initial Sepsis Screen: Does the patient meet any 2 criteria? No. Patient's initial sepsis screen is negative. Does the patient have a suspected source of infection? No. Patient's initial sepsis screen is negative. Risk Assessment: Do you want to hurt yourself or someone else? Patient reports no desire to harm self or others. Onset of symptoms was August 30, 2020. 16:14 Method Of Arrival: Wheelchair 16:14 Acuity: BLAYNE 2 Triage Assessment: 17:58 General: Appears in no apparent distress. Behavior is calm, cooperative, appropriate bw for age. Pain:. Historical: - Allergies: 16:17 Bactrim DS; iw 16:17 Fentanyl; iw 16:17 Stadol; iw 16:17 Reglan; iw 16:17 butorphanol tartrate; iw - PMHx: 16:17 Anxiety; Atrial Fib; Bipolar disorder; Chronic pain; COPD; esophageal varices; iw Hepatitis; HIV; Hypertension; Migraines; Panic Attacks; - PSHx: 16:17 Hernia repair; cardiac ablation; Cholecystectomy; Appendectomy; shoulder; iw - Immunization history:: Adult Immunizations up to date. - Social history:: Smoking status: Patient denies any tobacco usage or history of. Screenin:54 Abuse screen: Denies threats or abuse. Nutritional screening: No deficits noted. bw Tuberculosis screening: No symptoms or risk factors identified. Fall Risk None identified. Assessment: 17:54 Pain: Complains of pain in chest, groin Pain does not radiate. Pain began 1 day ago. bw Neuro: No deficits noted. Cardiovascular: Reports chest pain. Respiratory: No deficits noted. Vital Signs: 16:14 BP 131 / 87; Pulse 67; Resp 16; Temp 98.3; Pulse Ox 98% on R/A; Weight 95.25 kg; Height iw 5 ft. 4 in. (162.56 cm); 17:54 BP 128 / 89; Pulse 69; Resp 18; Pulse Ox 98% on R/A; bw 16:14 Body Mass Index 36.05 (95.25 kg, 162.56 cm) iw ED Course: 15:50 Patient arrived in ED. ds1 16:16 Triage completed. iw 16:17 Arm band placed on. iw 16:28 Austin Raza NP is PHCP. pm1 16:28 Ramon Baker MD is Attending Physician. pm1 17:41 Miranda Monzon RN is Primary Nurse. bw 17:54 Patient has correct armband on for positive identification. Bed in low position. Call light in reach. Side rails up X 1. classroom monitor on. Pulse ox on. NIBP on. 17:54 No provider procedures requiring assistance completed. Missed attempt(s): Bleeding bw controlled, band aid applied, catheter tip intact. Patient did not have IV access during this emergency room visit. Patient maintains SpO2 saturation greater than 95% on room air. Administered Medications: 17:59 Drug: morphine 4 mg Route: IM; Site: left deltoid; bw 17:59 Drug: Ondansetron (Zofran) 4 mg Route: PO; bw Outcome: 17:54 Discharged to home ambulatory. bw 17:54 Condition: stable 17:54 Discharge instructions given to patient. 18:06 Discharge ordered by . pm1 18:35 Patient left the ED. Signatures: Lainey Monson ds1 Jacquelin Meier RN RN Austin Raza NP SWING RIDE OPERATOR pm1 Miranda Monzon RN RN
[2020-08-30] MEDS ORDERED: ONDANSETRON 4 MG (ODT) TAB ONE (18:08)
[2020-08-30] MEDS ORDERED: MORPHINE 4 MG/ML SYR ONE (18:08)
[2020-08-30] MEDS ORDERED: ONDANSETRON 4 MG/2 ML VIAL ONE (18:24)
[2020-08-30 22:02] VITALS: TEMP 98.3; O2SAT 98
[2020-08-30 22:05] VITALS: BP 128/89
--- NOTE | 2020-09-01 07:17 | EKG ---
Test Date: 2020-08-30 Test Time: 16:25:17 Production Honing Machine Operator: JENELLE MEASUREMENT RESULTS: Intervals: Rate: 65 [place]: 178 QRSD: 84 QT: 420 QTc: 436 [place]: P: 50 NJ: 178 QRS: 8 T: 40 INTERPRETIVE STATEMENTS: Sinus rhythm with premature supraventricular complexes Minimal voltage criteria for LVH, may be normal variant Nonspecific ST and T wave abnormality Abnormal ECG Compared to ECG 07/30/2020 15:08:25 Atrial premature complex(es) now present Sinus bradycardia no longer present Possible ischemia no longer present Prolonged QT interval no longer present ST (T wave) deviation still present Electronically Signed On 09-01-20 07:14:28 CDT by Per Crane
== END 2020-08-30 18:35 | disposition home or self-care (01) ==
LOC: ER 15:48
DX: R07.9 Chest pain, unspecified (principal); I48.91 Unspecified atrial fibrillation; F31.9 Bipolar disorder, unspecified; G89.29 Other chronic pain; J44.9 Chronic obstructive pulmonary disease, unspecified; I10 Essential (primary) hypertension; F41.0 Panic disorder [episodic paroxysmal anxiety]
CPT/HCPCS: 93005; 96372; 99284; J2405

== ENCOUNTER 2020-09-29 16:49 | Emergency (ER) | payer OTHER ==
--- OUTSIDE RECORDS SUMMARY | 2020-09-29 16:52 | XMS REPORT | Continuity of Care Document ---
:1955 Author Organization [facility] t Address [address] [place] [address] Care Team Providers Name Role Phone Asked, Pcp Primary Care Physician Unavailable Curt Mitchell MD Attending Clinician Yazmin JENKINS Attending Clinician Remigio JENKINS V. Attending Clinician Carol Ann IZQUIERDO, M. Attending Clinician Meli SANCHEZ Attending Clinician Unavailable Clark SANCHEZ Attending Clinician Unavailable Tremayne JENKINS, P. Attending Clinician Quinn JENKINS, Y.H. Attending Clinician Maren JENKINS Attending Clinician Michael Pinon MD Attending Clinician Shaheed Catalan Attending Clinician Mario Tapia MD Attending Clinician Nahum SANCHEZ Attending Clinician Unavailable DO SYL Attending Clinician Unavailable YAZMIN Admitting Clinician Unavailable DO SYL Admitting Clinician Unavailable Payers Payer Name Policy Type Policy Effective Date Expiration Date Sour ce Number [facility] [id number] 2020 [place] MEDICARE(WELLME 00:00:00 Ted SAABP MEDICARE ADVANTAGE [id number] 05/2020-Present MO Problems Condition Condition Condition Status Onset Resolution Last Treating Co mments Source Name Details Category Date Date Treatment Clinician Date Gastropare Gastropare Disease Active Overview : [place] sis sis 4-12 Formattin Methodi 00:00: g of this 00 note might be different from the original. Added automatic ally from request for surgery [id number] Dysphagia Dysphagia Disease Active Overview: [place] 4-12 Formattin Methodi 00:00: g of this note might be different from the original. 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 Allergies, Adverse Reactions, Alerts Allergy Allergy Status Severity Reaction(s) Onset Inactive Treating Comm ents Source Name Type Date Date Clinician Fentanyl Propensi Active Other (See Unknown [place] ty to Comments) 4-16 reaction Metho di adverse 00:00: st reaction 00 s to drug Sulfamet Propensi Active Other (See 2019-05 Stomach [place] hoxazole ty to Comments) 2-04 pain Metho di -Trimeth adverse 00:00: st oprim reaction 00 s to drug Butorpha Propensi Active Hallucinatio 2019-05 [place] nol ty to ns 2-04 Methodi adverse 00:00: st reaction 00 s to drug Metoclop Propensi Active Rashida n ramide ty to 5-04 Methodi Hcl adverse 00:00: st reaction 00 s to drug Family History Family Member Diagnosis Comments Start Date Stop Date Source Natural father Hypertension Derrick Jean Natural father Kidney disease Rashida Jean Social History Social Habit Start Date Stop Date Quantity Comments Source History of tobacco Current smoker Juan Luis vasquezearnestine [facility] use Exposure to Not sure Meza Metho dist SARS-CoV-2 (event) Cigarettes smoked 2020-09-09 2020-09-09 Derrick Jean current (pack per 00:00:00 00:00:00 day) - Reported Cigarette 2020-09-09 2020-09-09 Derrick Egan ist pack-years 00:00:00 00:00:00 Tobacco use and 2020-09-09 2020-09-09 Never used Derrick Corbin ethodist exposure 00:00:00 00:00:00 Alcohol intake 2020-09-09 2020-09-09 Current drinker [place] [facility] 00:00:00 00:00:00 of alcohol (finding) Alcohol Comment 2016-09-23 2016-09-23 rare Derrick Corbin ethodist 00:00:00 00:00:00 [birth year] Derrick Corbin ethodist 00:00:00 00:00:00 Smoking Status Start Date Stop Date Source Former smoker 2020-09-09 00:00:00 2020-09-09 00:00:00 [place] [facility] Medications Ordered Filled Start Stop Current Ordering Indication Dosage Frequency Signature Comments Components Source Medication Medication Date Date Medication? Clinician (SIG) Name Name lisinopril Yes 40mg Q.5D Take 40 mg [place] (PRINIVIL,Z 4-16 by mouth 2 Me thodi ESTRIL) 40 19:57: (two) st mg tablet 11 times a day. metoprolol Yes 100mg Q.5D Take 100 [place] tartrate 4-16 mg by Methodi (LOPRESSOR) 19:57: mouth 2 st 100 mg 11 (two) tablet times a day. amLODIPine Yes 10mg QD Take 10 mg [place] (NORVASC) 4-16 by mouth Method i 10 mg 19:57: daily. st tablet 11 LORAZepam Yes 2mg QD Take 2 mg [place] (ATIVAN) 2 4-16 by mouth Metho di MG tablet 19:57: nightly as st 11 needed for anxiety. sertraline Yes 200mg QD Take 200 [place] (ZOLOFT) 4-16 mg by Methodi 100 MG 19:57: mouth st tablet 11 daily. clobetasol Yes 1{appli Q.5D Apply 1 [place] (TEMOVATE) 4-16 cation} applicatio Methodi 0.05 % 19:57: n st ointment 11 topically 2 (two) times a day. (affected area in groin) hydrALAZINE Yes 50mg QD Take 50 mg Meza (APRESOLINE 4-16 by mouth Meth jason ) 50 MG 19:57: nightly. st tablet 11 busPIRone Yes 20mg QD Take 20 mg [place] (BUSPAR) 10 4-16 by mouth Meth jason MG tablet 19:57: nightly. st 11 acetaminoph Yes 1000mg Q.5D Take 1,000 Meza en 4-16 mg by Methodi (TYLENOL) 19:57: mouth 2 st 500 MG 11 (two) tablet times a day as needed for headaches. albuterol Yes 1{puff} Q4H Inhale 1 [place] sulfate 90 4-16 puff every Met hodi mcg/actuati 19:57: 4 (four) st on aero 11 hours as powdr needed breath act (shortness w/sensor of breath or wheezing). budesonide- Yes 1{puff} QD Inhale 1 Meza formoteroL 4-16 puff every Met hodi (SYMBICORT) 19:57: morning. st 160-4.5 11 mcg/actuati on inhaler buPROPion Yes 150mg QD Take 150 [place] (WELLBUTRIN 4-16 mg by Methodi ) 100 MG 19:57: mouth st tablet 11 daily. pantoprazol 2020- Yes 40mg Q.5D Take 2 [place] st[place] e 4-16 05-16 tablets Methodi (Protonix) 00:00: 23:59 ([address] 20 MG EC 00 :00 total) by tablet mouth 2 (two) times a day for 30 days. esomeprazol 2020- No 40mg Q.5D Take 40 mg Meza e (NexIUM) 12 -12 by mouth 2 Me thodi 40 MG 08:54: 00:00 (two) st capsule 18 :00 times a day. LORAZepam 2020- No 2mg QD Take 2 mg [place] (ATIVAN) 2 09-01-12 by mouth Meth jason MG tablet 08:51: 00:[address] 15 :00 morning. busPIRone 2020- No 20mg QD Take 20 mg [place] (BUSPAR) 10 09-0112 by mouth Met hodi MG tablet 08:50: 00:[address] 39 :00 morning. pantoprazol Yes [place] e 08-29 Methodi (PROTONIX) 00:00: st 40 MG EC 00 tablet sucralfate Yes Derrick (CARAFATE) 08-29 Methodi 1 gram 00:00: st tablet 00 Eliquis 5 Yes Meza mg tablet 08-16 Methodi 00:00: st 00 montelukast 2020- No 10mg QD Take 10 mg Derrick (SINGULAIR) 07-28 by mouth Met hodi 10 mg 09:16: 00:[address] tablet 50 :00 mirtazapine No 15mg QD Take 15 mg Derrick (REMERON) 07-28 by mouth Metho di 15 MG 09:16: 00:[address] tablet 43 :00 needed (insomnia) . amIODarone 2019-05 No 200mg QD Take 1 [...] 2019-05 No 3mL Q.25D Take 3 mL Derrick -albuteroL 07-04 by Methodi (DUO-NEB) 00:00: 23:59 nebulizati s t 0.5-2.5 00 :00 on every 4 mg/3 mL (four) nebulizer hours while awake for 30 days. budesonide 2019-05 No Simple .5mg Q.5D Take 2 mL Meza [...] No acute pain 1{tbl} Q6H Take 1 [place] en-codeine 07-04 tablet by Met loredo (TYLENOL [...] methocarbam 2019-05- No 1000mg Q.25D Take 2 [place] oL 07-04 tablets Methodi (ROBAXIN) 00:00: 23:59 [...] ARIPiprazol 2019-05- No 5mg Take 1 Kilo storodger e (ABILIFY) 07-04 tablet (5 Me thodi 5 MG tablet 00:00: 00:00 mg total) st 00 :00 by mouth once for 1 dose. naloxone 4 2019-05 1{spray 1 spray Meza mg/actuatio 2-07-28 } into each Me thodi n 00:00: 00:[address] spray,non-a 00 :00 once as erosol needed (breathing less than 8 per minute or inability to arouse) for up to 2 doses. triamterene 2019-05 1{tbl} QD Take 1 [place] -hydrochlor [...] MRNA 2020-07-23 Completed [place] VACCINATION 00:00:00 [facility] PFIZER COVID-19 MRNA 2020-07-02 Completed [place] VACCINATION 00:00:00 [facility] Vital Signs Vital Name Observation Time Observation Value Comments Source Oxygen saturation in 2020-09-05 18:27:00 96 /min Derrick Jean Arterial blood by Pulse oximetry Respiratory rate 2020-09-05 16:30:00 20 /min Andrea Jean Systolic blood 2020-09-05 16:25:00 156 mm[Hg] Rashida n [facility] pressure Diastolic blood 2020-09-05 16:25:00 80 mm[Hg] [place] on [facility] pressure Heart rate 2020-09-05 16:25:00 59 /min Derrick Jean Body temperature 2020-09-05 16:25:00 37.11 Amina [place] [facility] Body height 2020-09-05 10:43:00 162.6 cm [place] [facility] Body weight 2020-09-05 10:43:00 97.07 kg [place] [facility] BMI 2020-09-05 10:43:00 36.73 kg/m2 [place] [facility] Procedures Procedure Date / Time Performing Source Performed Clinician SURGICAL PATHOLOGY REQUEST 2020-09-05 Eliseo Arce on 16:54:00 [facility] XR CHEST 1 VW PORTABLE 2020-09-05 Eliseo Arce 14:55:00 [facility] ND AN ELECTIVE ENDOTRACHEAL AIRWAY 2020-09-05 Kashmir Floodpelon Meza 11:47:23 V. [facility] EGD, INTRAOPERATIVE 2020-09-05 CadeEliseo monk 11:27:00 [facility] PARTIAL THROMBOPLASTIN TIME (PTT) 2020-09-05 Derrick Maharaj 10:04:00 Sarai Jean PROTHROMBIN TIME WITH INR 2020-09-05 Rashida Maharaj n 10:04:00 Sarai Jean HC COMPLETE BLD COUNT W/AUTO DIFF 2020-09-01 Ramiro Mitchell Meza 10:45:00 [facility] PROTHROMBIN TIME WITH INR 2020-09-01 Ramiro Mitchell Curt Field n 10:45:00 [facility] PARTIAL THROMBOPLASTIN TIME (PTT) 2020-09-01 Ramiro Mitchell 10:45:00 [facility] ECG 12-LEAD 2020-09-01 Ramiro Mitchell 10:31:26 [facility] COVID-19 QUALITATIVE PCR 2020-09-01 Ramiro Mitchell 10:24:00 [facility] COMPREHENSIVE METABOLIC PANEL 2020-09-01 Ramiro Mitchell Juan Luis parker 10:23:00 [facility] ESTIMATED GFR 2020-09-01 Ramiro Mitchell 10:23:00 [facility] NM GASTRIC EMPTYING 2020-08-27 Eliseo Arce 14:05:[address] CHEST WO CONTRAST ABDOMEN WO 2020-08-21 Eliseo Arce CONTRAST 10:20:00 [facility] FL ESOPHAGRAM SINGLE CONTRAST 2020-08-13 Eliseo Arce Juan Luis [place] 10:25:00 [facility] [id number] 2020-05-07 Derrick Engel 00:00:00 Historical [facility] BASIC METABOLIC PANEL 2020-05-02 Pau Ott [place] 09:08:00 [facility] HC COMPLETE BLD COUNT W/AUTO DIFF 2020-05-02 Pau Ott [place] 09:08:00 [facility] MAGNESIUM LEVEL 2020-05-02 Pau Ott [place] 09:08:00 [facility] ESTIMATED GFR 2020-05-02 CadeEliseo monk [place] 09:08:00 [facility] CBC HEMOGRAM 2020-05-01 Idalmis Montilla [place] 05:20:00 [facility] BASIC METABOLIC PANEL 2020-05-01 Idalmis Montilla [place] 04:00:00 [facility] ESTIMATED GFR 2020-05-01 Idalmis Montilla [place] 04:00:00 [facility] HEPATIC FUNCTION PANEL 2020-05-01 Idalmis Montilla [place] 04:00:00 [facility] THYROID STIMULATING HORMONE 2020-05-01 Roldan Idalmis Jimi Kilo ston 04:00:00 [facility] US DUPLEX VENOUS UPPER EXTREMITY 2020-04-30 Ceasar Patel [facility] BILATERAL 17:36:00 [facility] XR CHEST 2 VW 2020-04-30 Tru, Pau Fernández [place] 16:18:36 [facility] MIDLINE INSERTION ATTEMPT - 2020-04-30 Asim, Blesilda [place] UNSUCCESSFUL 11:14:34 [facility] XR ABDOMEN 1 VW PORTABLE 2020-04-30 HeleneEditah [place] 09:45:00 Rhonda [facility] ECG 12-LEAD 2020-04-30 TruPau [place] 09:06:58 [facility] ND AN ELECTIVE ENDOTRACHEAL AIRWAY 2020-04-28 Carlee Malloy [place] 14:57:57 [facility] REPAIR, HIATAL HERNIA, 2020-04-28 Eliseo Arce LAPAROSCOPIC, ROBOT-ASSISTED 13:38:00 Met hodist ESOPHAGOGASTRODUODENOSCOPY (EGD) 2020-04-28 Eliseo Arce 13:38:00 [facility] POC GLUCOSE 2020-04-28 Eliseo Arce 09:01:00 [facility] SURGICAL PATHOLOGY REQUEST 2020-04-28 Eliseo Arcet on 08:27:00 [facility] BASIC METABOLIC PANEL 2020-04-28 Carlos [place] 02:11:00 [facility] HC COMPLETE BLD COUNT W/AUTO DIFF 2020-04-28 Carlos [place] 02:11:00 Luis [facility] MAGNESIUM LEVEL 2020-04-28 Carlos Meza 02:11:00 Luis [facility] PHOSPHORUS LEVEL 2020-04-28 Carlos Meza 02:11:00 Luis [facility] PROTHROMBIN TIME WITH INR 2020-04-28 Rashida Gonzalez n 02:11:00 Luis [facility] PARTIAL THROMBOPLASTIN TIME (PTT) 2020-04-28 FlorianDerrick nova 02:11:00 Luis [facility] ESTIMATED GFR 2020-04-28 Eliseo Arce 02:11:00 [facility] TYPE AND SCREEN 2020-04-28 Eliseo Arce 02:11:00 [facility] POC GLUCOSE 2020-04-27 Eliseo Arce 23:38:00 [facility] POC GLUCOSE 2020-04-27 Eliseo Arce 20:14:00 [facility] TTE COMPLETE, WO CONTRAST, W 2020-04-27 Nieves Hyde [facility] DOPPLER ([id number]) 15:00:00 [facility] POC GLUCOSE 2020-04-27 Eliseo Arce 12:30:00 [facility] BASIC METABOLIC PANEL 2020-04-27 Eliseo Arce 06:34:00 [facility] ESTIMATED GFR 2020-04-27 Eliseo Arce 06:34:00 [facility] POC GLUCOSE 2020-04-26 Eliseo Arce 21:18:00 [facility] ECG 12-LEAD 2020-04-26 Nieves Hyde 20:24:31 [facility] COVID-19 QUALITATIVE PCR 2020-04-26 Yvonnemaria elenarohini [place] 15:44:00 Luis [facility] HC COMPLETE BLD COUNT W/AUTO DIFF 2020-04-26 Carlos [place] 03:05:00 Luis [facility] BASIC METABOLIC PANEL 2020-04-26 Carlos [place] 03:05:00 Luis [facility] MAGNESIUM LEVEL 2020-04-26 Yvonnemaria elenarohini [place] 03:05:00 Luis [facility] PHOSPHORUS LEVEL 2020-04-26 Carlos [place] 03:05:00 Luis [facility] CD 4 SUBSET 2020-04-26 Eliseo Arce 03:05:00 [facility] ESTIMATED GFR 2020-04-26 Eliseo Arce 03:05:00 [facility] MISCELLANEOUS REFERRAL TEST 2020-04-26 Eliseo Arce [place] 03:05:00 [facility] POTASSIUM LEVEL 2020-04-25 Eliseo Arce 21:04:00 [facility] HC COMPLETE BLD COUNT W/AUTO DIFF 2020[facility]04-[facility] [place] 18:51:00 Luis [facility] BASIC METABOLIC PANEL 2020-04-25 [facility] 18:51:00 Luis [facility] MAGNESIUM LEVEL 2020-04-25 [facility] 18:51:00 [facility] PHOSPHORUS LEVEL 2020-04-25 [facility], [place] 18:51:00 [facility] ESTIMATED GFR 2020-04-25 Eliseo Arce 18:51:00 [facility] FL ESOPHAGRAM DOUBLE CONTRAST 2020-04-25 Eliseo Arce [place] 11:31:[address] CHEST WO CONTRAST ABDOMEN WO 2020-04-21, n-[facility] CONTRAST PELVIS WO CONTRAST 08:15:34 Mario Haider odist HC COMPLETE BLD COUNT W/AUTO DIFF 2020-04-21, Yen-Te [place] 07:22:00 Mario Jean COMPREHENSIVE METABOLIC PANEL 2020-04-21, Yen-Te [facility] 07:22:00 Mario Eganist LIPASE LEVEL 2020-04-21, Yen-Te [place] 07:22:00 Restorationmathew Jean LACTIC ACID LEVEL, SEPSIS - NOW 2020-04-21[facility] 2X EVERY 3 HOURS 07:22:00 Restoration Meth odist ESTIMATED GFR 2020-04-21, Yen-Te [place] 07:22:00 Mario Jean Plan of Care Planned Activity Planned Date Details Comments Source Future Scheduled 2020-12-21 INFLUENZA VACCINE Rashida n [facility] Test 00:00:00 [code = INFLUENZA VACCINE] Future Scheduled 2006-01-22 BREAST CANCER [place] Me thodist Test 00:00:00 SCREENING [code = BREAST CANCER SCREENING] Future Scheduled 2006-01-22 COLONOSCOPY SCREENING Ho elena [facility] Test 00:00:00 [code = COLONOSCOPY SCREENING] Future Scheduled 2006-01-22 SHINGLES VACCINES Andreato n [facility] Test 00:00:00 (#1) [code = SHINGLES VACCINES (#1)] Future Scheduled 1977-01-22 Screening for [place] Me thodist Test 00:00:00 malignant neoplasm of cervix (procedure) [code = 367990595] Future Scheduled 1966-01-22 DIABETES: RETINAL EYE [place] [facility] Test 00:00:00 EXAM [code = DIABETES: RETINAL EYE EXAM] Future Scheduled 1966-01-22 DIABETIC FOOT EXAM [place] [facility] Test 00:00:00 [code = DIABETIC FOOT EXAM] Encounters Start End Encounter Admission Attending Care Care Encounter Source Date/Time Date/Time Type Type Clinicians Facility Department ID 2020-09-06 2020-09-06 Outpatient YAZMIN [facility] [id number] [place] 00:00:00 00:00:00 RAY 437 Method i 2020-09-06 2020-09-06 Outpatient [facility] [id number] [place] 00:00:00 00:00:00 108 Method i 2020-09-05 2020-09-05 [place] [id number] [place] 00:00:00 00:00:00 RAY 901 Method i 2020-09-01 2020-09-01 Outpatient SANDRA, MIN [facility] [id number] [place] 00:00:00 00:00:00 882 Method i 2020-09-01 2020-09-01 Outpatient YAZMIN [facility] [id number] [place] 00:00:00 00:00:00 RAY [address] 2020-08-29 2020-08-29 Outpatient [facility] CAR 7500 [facility] 05:20:00 05:20:00 2020-08-27 2020-08-27 Outpatient YAZMIN [facility] [id number] [place] 00:00:00 00:00:00 RAY 871 Method i 2020-08-21 2020-08-21 [facility] [id number] [place] 00:00:00 00:00:00 RAY [address] 2020-08-13 2020-08-13 Outpatient YAZMIN [facility] [id number] [place] 00:00:00 00:00:00 RAY [address] 2020-07-28 2020-07-28 Outpatient YAZMIN [facility] [id number] [place] 00:00:00 00:00:00 RAY [address] 2020-07-23 2020-07-23 Outpatient RTEMAYNE [facility] [id number] [place] 00:00:00 00:00:00 CHRISTOPHER [address] 2020-07-02 2020-07-02 Outpatient [facility] [id number] [place] 00:00:00 00:00:[address] 2020-06-23 2020-06-23 Outpatient YAZMIN [facility] [id number] [place] 00:00:00 00:00:00 RAY [address] 2020-04-25 2020-05-03 Inpatient YAZMIN [facility] 911 [id number] [place] 00:00:00 00:00:00 RAY [address] 2020-04-25 2020-04-25 Outpatient YAZMIN [facility] [id number] [place] 00:00:00 00:00:00 RAY [address] 2020-04-25 2020-04-25 Outpatient YAZMIN [facility] [id number] [place] 00:00:00 00:00:00 RAY [address] 2020-04-21 2020-04-21 Emergency TU, YEN-TE [facility] [id number] [place] 00:00:00 00:00:[address] Results Test Description Test Time Test Comments Results Result Comments Source Surgical pathology request 2020-09-08 14:30:47 Test Item Value Reference Range Interpretation Comme nts Case number (test code = 8883139) [id number] Surgical pathology report (test code = See link below for PDF Lab R eport 5599) Result status (test code = 3627613) This is Supplemental Report for [id number] [place] MethodistXR Chest 1 Vw [id number] 18:06:58Hm Interface, Radiology Results 09/06/2020 6:09 PM CDT EXAMINATION: XR CHEST 1 VW PORTABLE HISTORY: 65 years old Female. Z98.890 Other specified postprocedural states.COMPARISON: Chest radiograph 04/30/2020, CT chest 08/21/2020IMPRESS ION:Minimal streaky interstitial opacities in the left greater than right lung, possibly trace pulmonary vascular congestion. Mild linear atelectasis in the left mid and left lower lung. No confluent consolidation. No pleural effusion. No pneumothorax.Cardiomediastinal silhouette is enlarged, similar to prior.Bilateral shoulder arthroplasties.[facility]-[id number] MethodistAirway 2020-09-05 11:47:23Kirit Flood MD 09/05/2020 11:48 AMAirway Location: OR Performed by: anesthesia residentAnesthesiologist: Kirit Flood MDAuthorized by: Kirit Flood MD Urgency: Electi veDifficult Airway: No Preoxygenated with 100% O2: Yes C-spine Precautions Maintained Throughout: Yes Mask Ventilation: Easy maskFinal Airway Type: Endotracheal airwayFinal Endotracheal Airway: ETTCuffed: Yes Technique Used: Direct laryngoscopyDevices/Methods Used in Placement: Intubating styletBlade Type: MillerLaryngoscope Blade/Videolaryngoscope Blade Size: 2ETT Size (mm): 7.0Cuff at minimum occlusion pressure: Yes Measured from: GumsETT to Gums (cm): 21Placement Verified by: CO2 detection and direct visualization Laryngoscopic view: Grade I - full view of glottisRapid Sequence Induction (RSI): No Modified RSI: Yes Number of Attempts at Approach: [address] [place] [address] MethodistECG 12 [id number] 18:21:56 Test Item Value Reference Range Interpretation Comments Ventricular rate (test 60 code = 253) QRSD interval (test 86 code = 260) QT interval (test code 438 = 264) QTC interval (test code 438 = 265) P axis 1 (test code = 59 267) QRS axis 1 (test code = -2 268) T wave axis (test code 25 = 270) EKG impression (test Atrial code = 273) fibrillation-Voltage criteria for left ventricular hypertrophy-ST & T wave abnormality, consider anterior ischemia-Abnormal ECG- Derrick LópezD-19 qualitative [id number] 17:48:41 Test Item Value Reference Range Interpretation Comments Interpretation (test Negative results do code = 9737903) not preclude 2019-nCoV infection and should not be used as the sole basis for treatment or other patient management decisions. Negative results must be combined with clinical observations, patient history, and epidemiological information. COVID-19 qualitative Not-Detected Not-Detected PCR result (test code = 78976-1) COVID-19 qualitative See link below for C ase Number: PCR (test code = PDF Lab Report [id number]) Meza MethodistNM Gastric [id number] 18:14:39Hm Interface, Radiology Results Incoming - 08/27/2020 6:17 PM CDTFormatting of this note might be di fferent from the original.PROCEDURE: NM GASTRIC EMPTYINGINDICATION: Abdominal bloating. TECHNIQUE: 0.5 mCi of Tc-99m sulfur colloid was mixed with an egg and cooked. The egg was fed to the patientand dynamic planar images of the abdomen were acquired for 90 minutes. Delayed images were obtainedat 4 hours. FINDINGS: The initial gastric emptying rate is delayed. The half-time of emptying is 323 minutes. Normal range is between 45 and 100 minutes. Delayed images demonstrate complete emptying. IMPRESSION: 1. Moderately to markedly delayed initial gastric emptying rate, with complete emptying by 4 hours. [facility]-[id number] MethodistMiscellaneous referral [id number] 15:24:58 Test Item Value Reference Range Interpretation Comments Misc test HIV-1 RNA QUAL PCR name (test code = 2566) Misc test see note Human Immunodef iciency result (test Virus 1 (HIV-1) by code = 1730) Qualitative Rug Cleaner Helper-M ediated Amplification ( TMA) [facility] test code 2187071 HIV-1 by Qualit ative TMA See Note SOURCE/SPECIMEN PLASMA HIV-1 RNA, QUAL ITATIVE TMA HIV-1 RNA, QL TMA T DIRECTOR OF ANALYTICAL DEVELOPMENT Test Not Performed. Initial testing necessi tated a repeat, but the re was insufficient sa mple to perform repeat. SAMPLE LEFT FOR REPEAT IS 50 uL. NEED 1000 u L TO RUN REPEAT. This te st was performed using the APTIMA(R) HIV-R NA Qualitative Ass ay (Gen-Probe). ======== ======== Te st performed by:[place] [employer] [address] [place] [id number] KYLE (test HIVQL - HIV-1 RNA, code = KYLE) Qualitative TMA (FROZEN)Route4MeUP Test Code: 8415710Mfhmmr: plasma [place] MethodistUs duplex venous upper [id number] 22:57:00Interface, Radiology Results In - 04/30/2020 10:58 PM CST Vascular Ultrasound Laboratory Upper Extremity Venous Report [address] [address] Pat.Name: LIO WATTS Pat.ID: [id number] St.Date: 04/30/2020 Refer.MD: ELISEO ARCE MD Exam Time: 5:04:00PM Study Type:UE Venous Age: 9 1955,65Y Sex: FEMALE Sonogrphr: IBIS Espinosa RCS Pat. Stat.:Inpatient Room:[place] [address] 2020 Tape Vol: JM, CPT - 4: 39314 Echo Event ID:[id number] Order ID: [id number] Reason for Study:Arm swelling or pain, DVT [...] veins.*Preliminary result reported to ASHLEY Santos @ 1728 on 04/30/20.PHYSICIAN INTERPRETATION Venous examination of the both upper extremities and neck demonstratedno evidence of deep venous thrombosis. Total superficial vein thrombosis of the right basilic vein. FINDINGS : Signed 04/30/2020 10:57 PMFrancis Cabral MD, [place] MethodistXR Chest 2 [id number] 16:21:01Hm Interface, Radiology Results Incoming - 04/30/2020 [...] cardiopulmonary process or active disease of the chest.[id number] MethodistMidline Unsuccessful [id number] 11:14:34ANicole zhang RN 04/30/2020 11:25 AMMidline Unsuccessful Attempt Date/Time: 04/30/2020 11:14 AMPerformed by: Nicole Dailey, RNAuthorized by: Eliseo Arce MD Consent: Consent obtained: Verbal Consent given by: Patient Risks discussed: arterial puncture, incorrect placement, bleeding, infection, superficial thrombus, deep vein thrombus and nerve damage Alternatives discussed: Alternative treatmentUniversal protocol: Procedure explained and questions answered to patient or proxy's satisfaction: yes Relevant documents present and verified: yes Test results available and prop erly labeled: yes Imaging studies available: yes Required blood products, implants, devices, and special equipment available: yes Site/side marked: [...] vein splits, and very small cephalic vein. I tried twice to access brachial vein but patient felt a sharp pain so I asked ASHLEY Valdivia to access the vein, she was able to access the brachial vein without pain but dilator is unable to advance completely . Procedure aborted and ASHLEY Valdivia able to place a PIV g.20 in lower arm .[place] Jehovah'S WitnessXR Abdomen 1 Vw Portable 2020-04-30 10:20:14Hm Interface, Radiology Results - 04/30/2020 10:23 AM CST EXAMINATION: XR ABDOMEN 1 VW PORTABLECLINICAL HISTORY: Abdominal pain post opCOMPARISON: No priorIMPRESSION:1.Residual barium within the colon throughout. No small bowel obstruction noted.[facility]-[id number] [id number] 14:57:57Carlee Malloy MD 04/28/2020 2:59 PMAirwayPerformed by: Carlee Mlaloy MDAuthorized by: Carlee Malloy MD Location: ORUrgency: ElectiveDifficult Airway: No Anesthesiologist: Kvng Malloy, FLORENTINesident/GOLF COURSE MANAGER/AA: Allan Morocho, DOPerformed by: resident/GOLF COURSE MANAGER/AAPreoxygenated mpsq664% O2: Yes C- spine Precautions Maintained Throughout: [...] - 04/27/2020 6:21 PM CST Echocardiography Report [address] [place] [address] Pat.Name: LIO WATTS Marta.ID: [id number] .Date: 04/27/2020 Refer.MD: ELISEO ARCE MD Exam Time: 2:21:00 PM Study Type:Routine Echo Height: 64in Weight: 213lb BSA: 2.01 m2 Age: 9 1955,65Y Sex: FEMALE BP: 128/89 HR: 102 bpm Sonogrphr: SANKET Perkins Pat. Stat.:Inpatient Room: [facility] Study Status:Final Echo Event ID:[id number] Order ID: [id number] Reason for Study:Atrial FibrillationHistory / Clinical:Hypertension Procedures: [...] PA systolic pressure.- MEASUREMENTS: ---- 2DParasternal Long [place] Ao An 2.2 cm LVPWd 1 cm [...] LVOT CI 3.1 l/m/m2 Signed 04/27/2020 06:20 Bobby Camacho [facility]FL Esophagram Double [id number] 12:07:12Hm Interface, Radiology Results - 04/25/2020 12:10 PM CST EXAMINATION: [place] ESOPHAGRAM [...] hernia. There was mild spontaneous marco roesophageal reflux.[id number] Wo Contrast Abdomen Wo Contrast Pelvis Wo [id number] 09:23:55Hm Interface, Radiology Results - 04/21/2020 9:27 AM CST EXAMINATION: CT CHEST [...] chr onic and incidental findings as detailed above.[facility]-[id number] and approved by medical transcription radiology/fellow: Jenna Valenzuela M.D.I, Medhat Flowers Jr., M.D., [...] (qualifier Not Detected N value) URINALYSIS WITH [id number] 10:57:00 Test Item Value Reference Range Interpretation Comments Color (test code = UCOLR) Dk. Yellow Clarity (test code = UCLAR) Hazy Glucose (test code = UGLUC) NEGATIVE NEGATIVE N Bilirubin (test code = UBILI) NEGATIVE NEGATIVE N Ketones (test code = UKET) NEGATIVE NEGATIVE N Specific Hart (test code = 1.025 1.005-1.030 A USPGR) [...]
--- NOTE | 2020-09-29 20:18 | RAD REPORT ---
EXAM DESCRIPTION: CT - Head C Spine Cap Wo Con - 09/29/2020 8:08 pm CLINICAL HISTORY: Trauma, head and neck injury. Chest, abdomen and pelvis pain. headache;Pain COMPARISON: No comparisons TECHNIQUE: CT head without contrast. CT cervical spine without contrast with coronal and sagittal reformatted images. CT chest, abdomen and pelvis without contrast with coronal and sagittal reformatted images of the spi ne. All CT scans are performed using dose optimization technique as appropriate and may include automated exposure control or mA/KV adjustment according to patient size. FINDINGS: CT HEAD WITHOUT CONTRAST: No intracranial hemorrhage, hydrocephalus or extra-axial fluid collection. Mild generalized brain atr ophy is present with mild periventricular and deep white matter chronic microvascular ischemic change s.No areas of brain edema or midline shift. The paranasal sinuses and mastoids are clear. The calvarium is intact. CT CERVICAL SPINE WITHOUT CONTRAST: No fracture or subluxation. Moderate lower cervical degenerative spondylosis. The prevertebral soft t issues are normal in thickness. CT CHEST, ABDOMEN, PELVIS WITHOUT CONTRAST: NOTE: Lack of contrast is a significant limitation in the assessment of trauma related findings. Spec ifically, solid organ, vascular and bowel evaluation is significantly limited. The lungs are clear.No pneumothorax or pericardial/pleural fluid. No evidence of intra-abdominal visceral injury, free fluid or free air is seen within the above detai led limitations. Benign cysts are present in both kidneys. No pelvic mass or hematoma. Moderate degenerative spondylosis. IMPRESSION: Negative for acute traumatic findings within the above detailed limitations.
[2020-09-29 20:21] LABS: Absolute Lymphocytes (CBC) 1.4 K/uL (0.7-4.9); Basophils % 0.4 % (0-1.3); Hematocrit 32.3 % (36.0-45.0); MPV 7.7 fL (7.6-11.3); Protime INR 1.07; RBC Red Blood Cell Count 4.33 M/uL (3.86-4.86)
[2020-09-29] MEDS ORDERED: ONDANSETRON 4 MG/2 ML VIAL ONE (20:26)
[2020-09-29] MEDS ORDERED: MORPHINE 4 MG/ML SYR ONE ×2 (20:26→21:59)
[2020-09-29] MEDS ORDERED: NA CHLORIDE 0.9% 1,000 ML ONE (20:26)
[2020-09-29 21:00] LABS: ALT/SGPT 40 U/L (12-78); AST/SGOT 35 U/L (15-37); Albumin 3.2 g/dL (3.4-5.0); Alkaline Phosphatase 87 U/L (45-117); BUN Blood Urea Nitrogen 20 mg/dL (7-18); Bicarbonate 29 mmol/L (21-32); Bilirubin Direct < 0.1 mg/dL (0-0.2); Bilirubin Total 0.3 mg/dL (0.2-1.0); Glucose Level 100 mg/dL (74-106); Magnesium 2.3 mg/dL (1.8-2.4); NT PRO-BNP 611 pg/mL (<125); Potassium 3.2 mmol/L (3.5-5.1); Protein, Total 7.1 g/dL (6.4-8.2); Sodium Level 142 mmol/L (136-145); Troponin (Emerg Dept Use Only) < 0.02 ng/mL (0.0-0.045)
--- NOTE | 2020-09-29 21:02 | RAD REPORT ---
EXAM DESCRIPTION: RAD - Chest Single View - 09/29/2020 8:34 pm CLINICAL HISTORY: CHEST PAIN Chest pain. COMPARISON: Chest Single View dated 07/30/2020; Chest Single View dated 07/29/2020; Chest Single View d ated 05/24/2020; Chest Single View dated 04/07/2020 FINDINGS: Portable technique limits examination quality. The lungs are grossly clear. The heart is moderately enlarged. Bilateral total shoulder arthroplasty. IMPRESSION: No acute intrathoracic process suspected.
--- NOTE | 2020-09-29 21:36 | ER ---
Nurse's Notes [facility] Name: Marjan Fleming Age: 65 yrs Sex: Female : 1955 Arrival Date: 09/29/2020 Time: 16:51 Bed 5 Private MD: Diagnosis: Chest pain, unspecified-chest wall pain;Headache;Other chronic pain;Hypokalemia Presentation: 09/29 17:45 Chief complaint: Patient states: "I had a heart procedure done about a month ago with a jd3 heart oblation. I saw Dr. Ball last week and he said if this keeps happening to come to the ER.". Coronavirus screen: At this time, the client does not indicate any symptoms associated with coronavirus-19. Ebola Screen: Patient negative for fever greater than or equal to 101.5 degrees Fahrenheit, and additional compatible Ebola Virus Disease symptoms. Initial Sepsis Screen: Does the patient meet any 2 criteria? No. Patient's initial sepsis screen is negative. Does the patient have a suspected source of infection? No. Patient's initial sepsis screen is negative. Risk Assessment: Do you want to hurt yourself or someone else? Patient reports no desire to harm self or others. Onset of symptoms was August 25, 2020. 17:45 Method Of Arrival: Ambulatory jd3 17:45 Acuity: BLAYNE 3 jd3 Historical: - Allergies: 17:49 Bactrim DS; jd3 17:49 butorphanol tartrate; jd3 17:49 Fentanyl; jd3 17:49 metoclopramide HCl; jd3 17:49 Reglan; jd3 17:49 Stadol; jd3 17:49 sulfamethoxazole (bulk); jd3 17:49 TRIMETHOPRIM; jd3 - Home Meds: 17:49 Metoprolol Tartrate Oral [Active]; Hydralazine Oral [Active]; BuSpar Oral [Active]; jd3 Eliquis 5 mg Oral tab 1 tab 2 times per day [Active]; Metformin Oral [Active]; Descovy Oral [Active]; sertraline Oral [Active]; lisinopril Oral [Active]; amiodarone 200 mg Oral tab 1 tab once daily [Active]; Norvasc Oral [Active]; raltegravir Oral [Active]; - PMHx: 17:49 Anxiety; HIV; Hepatitis; Panic Attacks; esophageal varices; Chronic pain; Migraines; jd3 COPD; Atrial Fib; Bipolar disorder; Hypertension; - PSHx: 17:49 Hernia repair; Appendectomy; Cholecystectomy; shoulder; cardiac ablation; jd3 - Immunization history:: Adult Immunizations up to date. - Social history:: Smoking status: Patient/guardian denies using tobacco, but has a distant history of tobacco abuse. - Family history:: not pertinent. Screenin:23 Abuse screen: Denies threats or abuse. Nutritional screening: No deficits noted. ea Tuberculosis screening: No symptoms or risk factors identified. Fall Risk None identified. Assessment: 20:00 General: Appears in no apparent distress. comfortable, Behavior is calm, cooperative, rr5 appropriate for age. Pain: Complains of pain in chest Pain does not radiate. Pain currently is 10 out of 10 on a pain scale. Quality of pain is described as aching, Pain began gradually, Is intermittent. Neuro: Level of Consciousness is awake, alert, obeys commands, Oriented to person, place, time, situation, Reports headache. Cardiovascular: Reports chest pain, Capillary refill < 3 seconds Patient's skin is warm and dry. Respiratory: Airway is patent Respiratory effort is even, unlabored, Respiratory pattern is regular, symmetrical. GI: No signs and/or symptoms were reported involving the gastrointestinal system. : No signs and/or symptoms were reported regarding the genitourinary system. EENT: No signs and/or symptoms were reported regarding the EENT system. Derm: Skin is intact, is healthy with good turgor, Skin temperature is warm. Musculoskeletal: Capillary refill < 3 seconds. 21:00 Reassessment: Patient appears in no apparent distress at this time. Patient and/or rr5 family updated on plan of care and expected duration. Pain level reassessed. Patient is alert, oriented x 3, equal unlabored respirations, skin warm/dry/pink. awaiting for results. 22:09 Reassessment: Patient appears in no apparent distress at this time. Patient is alert, rr5 oriented x 3, equal unlabored respirations, skin warm/dry/pink. discharge instruction given and explained without complaints made. Vital Signs: 17:49 BP 153 / 95; Pulse 64; Resp 20 S; Temp 97.7(TE); Pulse Ox 99% on R/A; Weight 99.34 kg jd3 (R); Height 5 ft. 4 in. (162.56 cm) (R); Pain 10/10; 21:23 BP 185 / 97; Pulse 58; Resp 18; Pulse Ox 100% ; ea 22:08 BP 158 / 98; Pulse 60; Resp 16; Pulse Ox 98% ; rr5 17:49 Body Mass Index 37.59 (99.34 kg, 162.56 cm) jd3 ED Course: 16:51 Patient arrived in ED. as 17:47 Triage completed. jd3 17:50 Arm band placed on. jd3 17:50 EKG completed in triage. Results shown to MD. jd3 19:32 Justus Kolb MD is Attending Physician. thomas 19:59 Gregoria Madison, ASHLEY is Primary Nurse. ea 19:59 Inserted saline lock: 22 gauge in left upper arm, using aseptic technique. Blood ds4 collected. 20:08 CT Traumagram (Head C Spine CAP wo con) In Process Unspecified. EDMS 20:34 XRAY Chest (1 view) In Process Unspecified. EDMS 21:23 Patient has correct armband on for positive identification. Bed in low position. Call ea light in reach. deputy chief executive on. Pulse ox on. NIBP on. 21:36 Per Crane MD is Referral Physician. [facility] 22:09 No provider procedures requiring assistance completed. IV discontinued, intact, rr5 bleeding controlled, No redness/swelling at site. Pressure dressing applied. Patient maintains SpO2 saturation greater than 95% on room air. Administered Medications: 20:18 Drug: Zofran (Ondansetron) 4 mg Route: IVP; Site: left upper arm; rr5 21:10 Follow up: Response: No adverse reaction rr5 20:21 Drug: NS 0.9% 1000 ml Route: IV; Rate: 125 ml/hr; Site: left upper arm; rr5 22:08 Follow up: Response: No adverse reaction; IV Status: Order to discontinue infusion; IV rr5 Intake: 250ml 20:22 Drug: morphine 4 mg {Note: rass 0.} Route: IVP; Site: left upper arm; rr5 21:00 Follow up: Response: No adverse reaction; RASS: Alert and Calm (0) rr5 21:44 Drug: Potassium Effervescent Tablet 25 mEq Route: PO; rr5 22:07 Follow up: Response: No adverse reaction rr5 21:44 Drug: morphine 4 mg {Note: rass 0.} Route: IVP; Site: left upper arm; rr5 22:07 Follow up: Response: No adverse reaction; RASS: Alert and Calm (0) rr5 Intake: 22:08 IV: 250ml; Total: 250ml. rr5 Outcome: 21:36 Discharge ordered by MD. guzman 22:09 Discharged to home ambulatory. rr5 22:09 Condition: stable 22:09 Discharge instructions given to patient, Instructed on discharge instructions, follow up and referral plans. medication usage, Demonstrated understanding of instructions, follow-up care, medications, Prescriptions given X 2. 22:09 Patient left the ED. rr5 Signatures: Dispatcher [employer] EDMS Justus Kolb MD MD cha Martinez, Amelia as Swanson, Donovan ds4 Gregoria Madison RN RN ea Davies, Jonathon, RN RN jGoldy Torres RN RN rr5
--- NOTE | 2020-09-29 21:37 | EDPHYS ---
Physician Documentation [facility] Name: Marjan Fleming Age: 65 yrs Sex: Female : 1955 Arrival Date: 09/29/2020 Time: 16:51 Bed 5 Private MD: ED Physician Justus Kolb HPI: 09/29 19:42 This 65 yrs old Female presents to ER via Ambulatory with complaints of Chest thomas Pain, Headache. 19:42 The patient or guardian reports chest pain that is located primarily in the anterior thomas chest wall. Onset: 4 week(s) ago. The pain does not radiate. Associated signs and symptoms: Pertinent positives: headache. The chest pain is described as aching. Duration: The patient or guardian reports multiple episodes, that wax and wane. Modifying factors: The symptoms are alleviated by remaining still, the symptoms are aggravated by deep breath, movement, palpation of area, twisting torso. Severity of pain: At its worst the pain was mild this morning, in the emergency department the pain is unchanged. The patient has not experienced similar symptoms in the past. Historical: - Allergies: 17:49 Bactrim DS; jd3 17:49 butorphanol tartrate; jd3 17:49 Fentanyl; jd3 17:49 metoclopramide HCl; jd3 17:49 Reglan; jd3 17:49 Stadol; jd3 17:49 sulfamethoxazole (bulk); jd3 17:49 TRIMETHOPRIM; jd3 - Home Meds: 17:49 Metoprolol Tartrate Oral [Active]; Hydralazine Oral [Active]; BuSpar Oral [Active]; jd3 Eliquis 5 mg Oral tab 1 tab 2 times per day [Active]; Metformin Oral [Active]; Descovy Oral [Active]; sertraline Oral [Active]; lisinopril Oral [Active]; amiodarone 200 mg Oral tab 1 tab once daily [Active]; Norvasc Oral [Active]; raltegravir Oral [Active]; - PMHx: 17:49 Anxiety; HIV; Hepatitis; Panic Attacks; esophageal varices; Chronic pain; Migraines; jd3 COPD; Atrial Fib; Bipolar disorder; Hypertension; - PSHx: 17:49 Hernia repair; Appendectomy; Cholecystectomy; shoulder; cardiac ablation; jd3 - Immunization history:: Adult Immunizations up to date. - Social history:: Smoking status: Patient/guardian denies using tobacco, but has a distant history of tobacco abuse. - Family history:: not pertinent. ROS: 19:42 Constitutional: Negative for fever, chills, and weight loss, Eyes: Negative for injury, thomas pain, redness, and discharge, ENT: Negative for injury, pain, and discharge, Neck: Negative for injury, pain, and swelling, Respiratory: Negative for shortness of breath, cough, wheezing, and pleuritic chest pain, Abdomen/GI: Negative for abdominal pain, nausea, vomiting, diarrhea, and constipation, Back: Negative for injury and pain, : Negative for injury, bleeding, discharge, and swelling, MS/Extremity: Negative for injury and deformity, Skin: Negative for injury, rash, and discoloration, Neuro: Negative for headache, weakness, numbness, tingling, and seizure, Psych: Negative for depression, anxiety, suicide ideation, homicidal ideation, and hallucinations, Allergy/Immunology: Negative for hives, rash, and allergies, Endocrine: Negative for neck swelling, polydipsia, polyuria, polyphagia, and marked weight changes, Hematologic/Lymphatic: Negative for swollen nodes, abnormal bleeding, and unusual bruising. 19:42 Cardiovascular: Positive for chest pain, of the chest. Exam: 19:42 Constitutional: This is a well developed, well nourished patient who is awake, alert, thomas and in no acute distress. Head/Face: Normocephalic, atraumatic. Eyes: Pupils equal round and reactive to light, extra-ocular motions intact. Lids and lashes normal. Conjunctiva and sclera are non-icteric and not injected. Cornea within normal limits. Periorbital areas with no swelling, redness, or edema. ENT: Nares patent. No nasal discharge, no septal abnormalities noted. Tympanic membranes are normal and external auditory canals are clear. Oropharynx with no redness, swelling, or masses, exudates, or evidence of obstruction, uvula midline. Mucous membranes moist. Neck: Trachea midline, no thyromegaly or masses palpated, and no cervical lymphadenopathy. Supple, full range of motion without nuchal rigidity, or vertebral point tenderness. No Meningismus. Chest/axilla: Normal chest wall appearance and motion. Nontender with no deformity. No lesions are appreciated. Cardiovascular: Regular rate and rhythm with a normal S1 and S2. No gallops, murmurs, or rubs. Normal PMI, no JVD. No pulse deficits. Respiratory: Lungs have equal breath sounds bilaterally, clear to auscultation and percussion. No rales, rhonchi or wheezes noted. No increased work of breathing, no retractions or nasal flaring. Abdomen/GI: Soft, non-tender, with normal bowel sounds. No distension or tympany. No guarding or rebound. No evidence of tenderness throughout. Back: No spinal tenderness. No costovertebral tenderness. Full range of motion. Female : Normal external genitalia. Skin: Warm, dry with normal turgor. Normal color with no rashes, no lesions, and no evidence of cellulitis. MS/ Extremity: Pulses equal, no cyanosis. Neurovascular intact. Full, normal range of motion. Neuro: Awake and alert, GCS 15, oriented to person, place, time, and situation. Cranial nerves II-XII grossly intact. Motor strength 5/5 in all extremities. Sensory grossly intact. Cerebellar exam normal. Normal gait. Psych: Awake, alert, with orientation to person, place and time. Behavior, mood, and affect are within normal limits. 19:55 ECG was reviewed by the Attending Physician. [facility] [place] Vital Signs: 17:49 BP 153 / 95; Pulse 64; Resp 20 S; Temp 97.7(TE); Pulse Ox 99% on R/A; Weight 99.34 kg jd3 (R); Height 5 ft. 4 in. (162.56 cm) (R); Pain 10/10; 21:23 BP 185 / 97; Pulse 58; Resp 18; Pulse Ox 100% ; ea 22:08 BP 158 / 98; Pulse 60; Resp 16; Pulse Ox 98% ; rr5 17:49 Body Mass Index 37.59 (99.34 kg, 162.56 cm) jd3 MDM: 19:32 Patient medically screened. [facility] [place] 19:44 Differential diagnosis: abnormal EKG, anxiety, coronary artery disease chest wall pain, thomas cholecystitis, Cholelithiasis costochondritis, herpes zoster, pancreatitis, pneumonia, pulmonary embolus, stable angina, unstable angina. HEART Score: History: Slightly Suspicious (0), ECG: Non specific repolarization disturbance / LBTB / PM (1), Age: > 45 and < 65 years (1), Risk Factors: > or = 3 Risk factors for atherosclerotic disease (2), [Hypercholesterolemia] [Hypertension] [+ Family HX] [Obesity] Troponin: < or = 1 x Normal Limit (0). The patient was not given aspirin in the Emergency Department. Not indicated due to patient's past medical history. The patient's deep vein thrombosis risk score was calculated as follows: Total Score: 0. This patient was found to be at low risk for a deep vein thrombosis by using the Well's assessment criteria. The patient's pulmonary embolism risk score was calculated as follows: Total Score: 0-2 points. This patient was found to be at low risk for a pulmonary embolism by using the Well's assessment criteria. MONI Risk Score: 1 - Three or more CAD risk factors, 1- Known CAD, TOTAL SCORE = 2. Data reviewed: vital signs, nurses notes, lab test result(s), EKG, radiologic studies, CT scan, plain films. Data interpreted: children's author: rate is 64 beats/min, rhythm is regular, Pulse oximetry: on room air is 99 %. Test interpretation: by ED physician or midlevel provider: ECG, plain radiologic studies. Counseling: I had a detailed discussion with the patient and/or guardian regarding: the historical points, exam findings, and any diagnostic results supporting the discharge/admit diagnosis, lab results, radiology results, the need for outpatient follow up, for definitive care, a down filler, a family practitioner. 09/29 19:42 Order name: Basic Metabolic Panel; Complete Time: 21:33 [facility] [place] 09/29 19:42 Order name: CBC with Diff; Complete Time: 21:33 [facility] [place] 09/29 19:42 Order name: LFT's; Complete Time: 21:33 [facility] [place] 09/29 19:42 Order name: Magnesium; Complete Time: 21:33 [facility] [place] 09/29 19:42 Order name: NT PRO-BNP; Complete Time: 21:33 [facility] [place] 09/29 19:42 Order name: PT-INR; Complete Time: 21:33 [facility] [place] 09/29 19:42 Order name: Troponin (emerg Dept Use Only); Complete Time: 21:33 [facility] [place] 09/29 19:42 Order name: XRAY Chest (1 view); Complete Time: 21:33 [facility] [place] 09/29 19:42 Order name: CT Traumagram (Head C Spine CAP wo con); Complete Time: 21:33 [facility] [place] 09/29 19:42 Order name: EKG; Complete Time: 19:43 [facility] [place] 09/29 19:42 Order name: Cardiac monitoring; Complete Time: 20:22 [facility] [place] 09/29 19:42 Order name: EKG - Nurse/Tech; Complete Time: 20:22 [facility] [place] 09/29 19:42 Order name: IV Saline Lock; Complete Time: 20:05 [facility] [place] 09/29 19:42 Order name: Labs collected and sent; Complete Time: 20:06 [facility] [place] 09/29 19:42 Order name: O2 Per Protocol; Complete Time: 20:06 [facility] [place] 09/29 19:42 Order name: O2 Sat Monitoring; Complete Time: 20:06 [facility] [place] EC:55 Rate is 54 beats/min. Rhythm is regular. QRS [place] is Normal. VT interval is normal. QRS thomas interval is normal. QT interval is normal. No Q waves. T waves are Normal. No ST changes noted. Clinical impression: Sinus bradycardia and No evidence of ischemia. Interpreted by me. Reviewed by me. Administered Medications: 20:18 Drug: Zofran (Ondansetron) 4 mg Route: IVP; Site: left upper arm; rr5 21:10 Follow up: Response: No adverse reaction rr5 20:21 Drug: NS 0.9% 1000 ml Route: IV; Rate: 125 ml/hr; Site: left upper arm; rr5 22:08 Follow up: Response: No adverse reaction; IV Status: Order to discontinue infusion; IV rr5 Intake: 250ml 20:22 Drug: morphine 4 mg {Note: rass 0.} Route: IVP; Site: left upper arm; rr5 21:00 Follow up: Response: No adverse reaction; RASS: Alert and Calm (0) rr5 21:44 Drug: Potassium Effervescent Tablet 25 mEq Route: PO; rr5 22:07 Follow up: Response: No adverse reaction rr5 21:44 Drug: morphine 4 mg {Note: rass 0.} Route: IVP; Site: left upper arm; rr5 22:07 Follow up: Response: No adverse reaction; RASS: Alert and Calm (0) rr5 Disposition: 09/29/20 21:36 Discharged to Home. Impression: Chest pain, unspecified - chest wall pain, Headache, Other chronic pain, Hypokalemia. - Condition is Stable. - Discharge Instructions: Nonspecific Chest Pain, Chronic Pain, Chest Wall Pain, [id number], Nonspecific Chest Pain, [id number]. - Prescriptions for Protonix 40 mg Oral Tablet - take 1 tablet by ORAL route once daily; 30 tablet. Tylenol- Codeine #3 300-30 mg Oral Tablet - take 2 tablets by ORAL route every 4-6 hours As needed; 18 tablet. - Medication Reconciliation Form, Thank You Letter, Antibiotic Education, Prescription Opioid Use form. - Follow up: Private Physician; When: 2 - 3 days; Reason: Recheck today's complaints, Continuance of care, Re-evaluation by your physician. Follow up: Per Crane; When: 2 - 3 days; Reason: Recheck today's complaints, Continuance of care, Re-evaluation by your physician. - Problem is new. - Symptoms have improved. Signatures: Dispatcher [employer] EDJustus Perrin MD MD cha Davies, Jonathon, RN RN jd3 Goldy Agee RN RN rr5 Corrections: (The following items were deleted from the chart) 22:09 21:36 09/29/2020 21:36 Discharged to Home. Impression: Chest pain, unspecified - chest rr5 wall pain; Headache; Other chronic pain; Hypokalemia. Condition is Stable. Discharge Instructions: Nonspecific Chest Pain, Chronic Pain, Chest Wall Pain, [id number], Nonspecific Chest Pain, [id number]. Prescriptions for Protonix 40 mg Oral Tablet - take 1 tablet by ORAL route once daily; 30 tablet. and Forms are Medication Reconciliation Form, Thank You Letter, Antibiotic Education, Prescription Opioid Use. Follow up: Private Physician; When: 2 - 3 days; Reason: Recheck today's complaints, Continuance of care, Re-evaluation by your physician. Follow up: Per Crane; When: 2 - 3 days; Reason: Recheck today's complaints, Continuance of care, Re-evaluation by your physician. Problem is new. Symptoms have improved. thomas
[2020-09-29] MEDS ORDERED: POTASSIUM 25 MEQ EFFERV TAB ONE (21:59)
[2020-09-29 23:12] VITALS: TEMP 97.7
[2020-09-29 23:16] VITALS: BP 158/98; O2SAT 98
--- NOTE | 2020-09-30 17:43 | EKG ---
Test Date: 2020-09-29 Test Time: 17:56:37 Digital Librarian: JOHANNA MEASUREMENT RESULTS: Intervals: Rate: 54 HI: 128 QRSD: 80 QT: 478 QTc: 453 [place]: P: 0 HI: 128 QRS: 8 T: 30 INTERPRETIVE STATEMENTS: Poor data quality, interpretation may be adversely affected Sinus bradycardia Minimal voltage criteria for LVH, may be normal variant Nonspecific ST and T wave abnormality Abnormal ECG Compared to ECG 08/30/2020 16:25:17 Sinus rhythm no longer present Atrial premature complex(es) no longer present ST (T wave) deviation still present Electronically Signed On 09-30-20 17:40:18 CDT by Per Crane
== END 2020-09-29 22:09 | disposition home or self-care (01) ==
LOC: ER 16:49
DX: E87.6 Hypokalemia (principal); G89.29 Other chronic pain; R51.9 Headache, unspecified; I10 Essential (primary) hypertension; J44.9 Chronic obstructive pulmonary disease, unspecified; I48.91 Unspecified atrial fibrillation; F41.9 Anxiety disorder, unspecified; Z79.01 Long term (current) use of anticoagulants; Z21 Asymptomatic human immunodeficiency virus [HIV] infection status; Z88.1 Allergy status to other antibiotic agents; Z88.2 Allergy status to sulfonamides; Z88.5 Allergy status to narcotic agent; Z88.8 Allergy status to other drugs, medicaments and biological substances
CPT/HCPCS: 85025; 80048; 36415; 83735; 85610; 80076; 84484; 83880; 70450; 71250; 72125; 71045; J7030; J2405; 93005; 96361; 96374; 96375; 99285

== ENCOUNTER 2020-10-15 06:29 | Day surgery (SDC) | payer OTHER ==
[2020-10-15] MEDS ORDERED: Ringers Lactate 1,000 ML IV ONE ×2 (07:24→09:54)
[2020-10-15] MEDS ORDERED: CEFAZOLIN/SWI 2gm 2 GM/20 ML SYR ONE (07:24)
[2020-10-15] MEDS ORDERED: propofoL 200 MG/20 ML VIAL IV ONE (07:42)
[2020-10-15] MEDS ORDERED: FENTANYL CITR 100 MCG/2 ML ONE (07:43)
[2020-10-15] MEDS ORDERED: MIDAZOLAM HCL 2 MG/2 ML INJ ONE (07:43)
[2020-10-15] MEDS ORDERED: ONDANSETRON 4 MG/2 ML VIAL ONE (07:43)
[2020-10-15] MEDS ORDERED: LIDOCAINE 2% MPF 5 ML VIAL ONE (07:43)
[2020-10-15] MEDS ORDERED: KETOROLAC 30 MG/ML INJ ONE (07:43)
[2020-10-15] MEDS ORDERED: ROCURONIUM 50 MG/5 ML VIAL IV ONE (07:43)
[2020-10-15] MEDS ORDERED: dexAMETHasone 10 MG/ML VIAL ONE (07:43)
[2020-10-15] MEDS ORDERED: BUPIVACAINE 0.25% PF 30 ML VIAL ONE (08:26)
--- NOTE | 2020-10-15 09:43 | P.OP ---
Preoperative diagnosis: Ventral Periumbilical Hernia - incarcerated Postoperative diagnosis: Ventral Periumbilical Hernia - incarcerated Primary procedure: Laparoscopic Ventral Periumbilical hernia repair with mesh Anesthesia: GETA + Local Estimated blood loss: <5cc Specimen: hernia contents Findings: ~3 cm round hernia defect - periumbilical with adipose entrapped Complications: None Implants: [address] mesh with echo position system Transferred to: Recovery Room Condition: Good
[2020-10-15] MEDS ORDERED: SUGAMMADEX SODIUM 200 MG/2 ML VIAL IV ONE (09:51)
[2020-10-15] MEDS ORDERED: HYDROMORPHONE HCL 1 MG/ML INJ ONE (10:27)
[2020-10-15] MEDS ORDERED: PROMETHAZINE INJ 25 MG/ML AMP ONE (10:27)
[2020-10-15] MEDS ORDERED: HYDROCODONE/APAP 7.5/325 MG TAB PO ONE (11:00)
[2020-10-15 11:05] VITALS: TEMP 97
[2020-10-15] MEDS ORDERED: HYDROCODONE/APAP 7.5/325 MG TAB ONE ×2 (11:05→11:49)
[2020-10-15 12:06] VITALS: BP 120/76; O2SAT 92
--- NOTE | 2020-10-15 14:39 | OP ---
Date of Procedure: 10/15/2020 Surgeon: Arpit Rahman MD, Preoperative Diagnosis: Ventral periumbilical hernia - incarcerated. Postoperative Diagnosis: Ventral periumbilical hernia - incarcerated. Procedure Performed: Laparoscopic ventral periumbilical hernia repair with mesh. Anesthesia: General endotracheal plus local with 0.25% Marcaine. Estimated Blood Loss: Less than 5 mL. Specimens: Hernia contents. Findings: Approximately 2 cm round hernia defect with periumbilical and adipose tissue entrapped. Complications: None. Implants: An [address] mesh with Echo Positioning System. Disposition: The patient was transferred to recovery room in good condition. Procedure In Detail: After informed consent was obtained, the patient was brought to the operating r oom, prepped and draped in the usual sterile fashion after adequate anesthesia was achieved. The are a of the left upper quadrant was anesthetized with 0.25% Marcaine and sharply incised. A 5 mm 0-degr ee optical trocar was introduced in the abdomen without evidence of complication. Insufflation was o btained to 15 mmHg at this time. There was no injury to vital structures upon entry to the abdomen. Upon inspection, there was some appearance of nodularity to the liver consistent with possible early cirrhosis. In addition, there was fat entrapped in the umbilical hernia evident on initial inspecti on. At this point, additional trocar was placed in left lower quadrant. This was similarly anesthet ized and sharply incised. A 5 mm trocar was placed under direct visualization without evidence of co mplication. The left upper quadrant trocar was then up-sized to a 12 mm under direct visualization w ithout evidence of complication. The patient positioned slightly head down right side down and using the LigaSure device, the hernia contents were removed and dissected using a combination of blunt and electrocautery dissection with the LigaSure device. Some adipose tissue was ligated as it was devas cularized at this point, placed in EndoCatch bag, removed through the trocar and sent off for patholo gic examination, simple identification only. At this point, a good flat landing zone was appreciated on the anterior abdominal wall. A 3 cm hernia defect was appreciated. An 11 cm hernia mesh was brenda reciated for optimal positioning at this point. It was brought in through the left lower quadrant tr ocar, positioned through the center portion of the defect and then secured using a double crown metho d using an absorbable fixation tack - SobraFix. At this point, the balloon deployment system was rem crissy and found to be intact on the back table. Remaining absorbable fixation tacks were used to fixa te the mesh to the anterior abdominal wall with good apposition of the mesh under de-sufflation. It was checked once again and had good apposition at this point. The left upper quadrant trocar was rem crissy and the trocar site was closed using a Henrik-Angel suture passer with a 0 Vicryl in interrup arpit fashion with good approximation tissues. The abdomen was completely desufflated under direct vis ualization without evidence of complication. The remaining trocars were removed. All skins were copier operator iously irrigated and closed with 4-0 Monocryl in a running fashion. Dermabond placed over top. The patient tolerated the procedure well without evidence of complication and transferred to PACU in good condition. All counts were correct at the end of the case. SHARIF/KIRTI Voice ID: [id number] Report ID: [id number]
== END 2020-10-15 12:00 | disposition home or self-care (01) ==
LOC: OR 06:29
PROVIDERS: ATTEND Surgery
PROC: 0WUF4JZ Supplement Abdominal Wall with Synthetic Substitute, Percutaneous Endoscopic Approach (ICD-10-PCS; principal; 2020-10-15 08:30)
DX: K43.6 Other and unspecified ventral hernia with obstruction, without gangrene (principal); U07.1 COVID-19; Z88.1 Allergy status to other antibiotic agents
CPT/HCPCS: 88302; 49653; U0003; J2704; J2550; J2250; J3010; J1100; J1170; J0690; J7120 ×2; J2405; C1781

== ENCOUNTER 2020-10-16 05:07 | Emergency (ER) | payer OTHER ==
--- OUTSIDE RECORDS SUMMARY | 2020-10-16 05:12 | XMS REPORT | Continuity of Care Document ---
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 [id number] [place] 00:00:00 00:00:00 882 Method i 2020-09-01 2020-09-01 Outpatient CHIMATAA, [facility] [id number] [place] 00:00:00 00:00:00 RAY 607 Method i 2020-08-29 2020-08-30 Outpatient Hematporay, [facility] [id number] 05:20:00 09:10:00 Khashayar 2020-08-29 2020-08-29 Outpatient [facility] CAR 7500 [facility] 05:20:00 05:20:00 2020-08-29 2020-08-29 Outpatient [facility]pour[facility] [id number] 05:20:00 05:20:00 Khashayar 2020-08-27 2020-08-27 Outpatient CHIHARA, [facility] [id number] [place] 00:00:00 00:00:00 RAY [address] 2020-08-21 2020-08-21 Outpatient CHIHARA, [facility] [id number] [place] 00:00:00 00:00:00 RAY [address] 2020-08-13 2020-08-13 Outpatient CHIHARA, [facility] [id number] [place] 00:00:00 00:00:00 RAY [address] 2020-07-28 2020-07-28 Outpatient CHIHARA, [facility] [id number] [place] 00:00:00 00:00:00 RAY [address] 2020-07-23 2020-07-23 Outpatient ROBBEN, [facility] [id number] [place] 00:00:00 00:00:00 MIGNONER [address] 2020-07-02 2020-07-02 Outpatient [facility] [id number] [place] 00:00:00 00:00:[address] 2020-06-23 2020-06-23 Outpatient CHIHARA, [facility] [id number] [place] 00:00:00 00:00:00 RAY [address] 2020-04-25 2020-05-03 Inpatient CHIMATAA, [facility] [id number] [place] 00:00:00 00:00:00 RAY [address] 2020-04-25 2020-04-25 Outpatient CHIMATAA, [facility] [id number] [place] 00:00:00 00:00:00 RAY [address] 2020-04-25 2020-04-25 Outpatient CADEA, [facility] [id number] [place] 00:00:00 00:00:00 RAY [address] 2020-04-21 2020-04-21 Emergency TUPETE [facility] [id number] [place] 00:00:00 00:00:[address] Results Test Description Test Time Test Comments Results Result Sourc e Comments OR FL < 1 Hour 2020-10-08 Interface, [place] 14:41:02 Radiology Results Methodi Incoming - 10/08/2020 2:44 PM CDT EXAMINATI ON: OR FL < 1 HOURC-arm fluoroscopy was requested in OR. Location: [facility] OR room 6 Procedure: EGD WITH BOTOX INJECTION INTO THE PYLORUS, ENDOFLIP, ON TABLE ESOPHAGRAM (N/A ) Start: 1140 End:1222 Fluoro Time: .19sec Dose: 7.8mGy Tech: A.BIMPRESSION:Intr aoperative fluoroscopic images. Radiologist was not present during the examination.Separa te operative report will be issued by the physician performing the procedure.[id number] T03 Surgical pathology request 2020-09-08 14:30:47 Test Item Value Reference Range Interpretation Comme nts Case number (test code = 6332912) [id number] Surgical pathology report (test code = See link below for PDF Lab R eport 2256) Result status (test code = 4681546) This is Supplemental Report for [id number] [place] MethodistXR Chest 1 Vw Erodbgpw1618-33-27 18:06:58 Interface, Radiology Results - 09/06/2020 6:09 PM CDT EXAMINATION: XR CHEST [...] silhouette is enlarged, similar to prior.Bilateral shoulder arthroplasties.[facility]-[id number] MethodistAirway 2020-09-05 11:47:23Kirit Flood MD 09/05/2020 11:48 [...] RSI: Yes Number of Attempts at Approach: [facility] Methodist[facility] 12 wbxo5544-87-13 18:21:56 Test Item Value Reference Range Interpretation [...] wave abnormality, consider anterior ischemia-Abnormal ECG- Derrick EganistCOVID-19 qualitative [id number] 17:48:41 Test Item Value Reference Range Interpretation Comments Interpretation (test Negative results do code = 4859681) not preclude 2019-nCoV infection and should not be used as the sole basis for treatment or other patient management decisions. Negative results must be combined with clinical observations, patient history, and epidemiological information. COVID-19 qualitative Not-Detected Not-Detected PCR result (test code = 61740-5) COVID-19 qualitative See link below for C ase Number: PCR (test code = PDF Lab Report [id number]) [place] OzdnhthbaMKARWLDWZV3760-55-85 16:31:00 Test Item Value Reference Range Interpretation Comments POC Activated Clotting Time (test code 153 s = POC Activated Clotting Time) [facility]sglchoRKPYMNITMH2121-66-11 14:37:00 Test Item Value Reference Range Interpretation Comments POC Activated Clotting Time (test code 454 s = POC Activated Clotting Time) [facility] PasoNktmkgyFZJTOEBBLP2443-30-83 14:13:00 Test Item Value Reference Range Interpretation Comments POC Activated Clotting Time (test code 354 s = POC Activated Clotting Time) [facility] BANK CDZWZJT1980-30-76 10:37:00Negative (08/29/20 5:37 AM) [facility] HermannCHEM KOJRB7375-20-64 10:37:07738Rwkivhnt HermannCHEM PANEL 2020-08-29 10:37:0028[facility] HermannCHEM ULUSV7783-97-26 10:37:001.01[facility] HermannCHEM NHJLO6125-95-29 10:37:65362Plnprvkl HermannCHEM UMBGQ7107-94-10 10:37:003.8[facility] HermannCHEM XWDVE5265-34-15 10:37:37259Qzbnthbt HermannCHEM CDFDL3112-63-46 10:37:0028[facility] HermannCHEM DBZPQ1318-54-71 10:37:009.8 [facility] HermannCHEM QBNHN2518-93-15 10:37:0011.8[facility] HermannCHEM PANEL 2020-08-29 10:37:0059[facility] HermannCHEM GZYOZ6646-66-59 10:37:002.9[facility] AcoxomrCNFWWPKVHN1563-15-70 10:37:006.8[facility] AqxupcvIEYRSFPXLN6942-42-76 10:37:004.47[facility] ZbukiyfXOWKYWANNQ0255-45-62 10:37:0010.6[facility] [place] LGMUREEBFQ9294-60-98 10:37:0034.0[facility] KsrvaexSRLIUZETEQ5252-10-43 10:37:00 76.1[facility] FxnzegaXURWONNTLG9578-86-80 10:37:00 Test Item Value Reference Range Interpretation Comments MCH (test code = MCH) 23.8 pg 27.0-31.0 Memorial LxgmyodOSMHFLANLZ7401-96-70 10:37:0031.3[facility] HermannHEMATOLOGY 2020-08-29 10:37:0018.2[facility] UjgslpaLFDZUQMYRX6682-63-58 10:37:37544Kxgmqtbl YanulcdAINUVKZETK6648-16-87 10:37:007.5[facility] HvgnlthXHWMANBMUJ9617-80-05 10:37:00 Test Item Value Reference Range Interpretation Comments PT (test code = PT) 12.8 s 12.0-14.7 Memorial MphdjmhTQHYHUXYMX4858-70-22 10:37:00 Test Item Value Reference Range Interpretation Comments INR (test code = INR) 0.97 1 0.85-1.17 Memorial RmkzjjyKCXQPEBJQF2383-77-42 10:37:00 Test Item Value Reference Range Interpretation Comments PTT (test code = PTT) 25.0 s 22.9-35.8 Memorial GksfftxIKQDFFBGWJ1553-25-67 10:37:0070.5[facility] HermannHEMATOLOGY 2020-08-29 10:37:0018.8[facility] TeguxqqOOBRERLLEF0880-32-13 10:37:009.5[facility] CpzqrimWBCZYKVPAJ4716-57-52 10:37:000.9[facility] PbowhtaZAFWIBNUNM2161-17-41 10:37:000.3[facility] EipfhkqWUARPGGFKU6850-05-51 10:37:004.8[facility] [place] WTFERBASDJ6945-70-54 10:37:001.3[facility] TjftkdwWJRHUNRXUR1741-80-07 10:37:000.6 Memorial IxlqmlqPKVDNDJBAX9479-06-91 10:37:000.1[facility] HermannHEMATOLOGY 2020-08-29 10:37:001+ *ABN*(08/29/20 5:37 AM)[facility] TecvtrxEXUBGLYEWZ4242-72-51 10:37:00Not Detected (08/29/20 5:37 AM)[facility] HermannNM Gastric Emptying 2020-08-27 18:14:39Hm Interface, Radiology Results Incoming - 08/27/2020 6:17 PM CDT PROCEDURE: NM GASTRIC EMPTYINGINDICATION: Abdominal bloating. TECHNIQUE: 0.5 mCi of Tc- 99m sulfur colloid was mixed with an egg [...] rate, with complete emptying by 4 hours. [facility]-[id number] MethodistMiscellaneous referral sutm9450-94-47 15:24:58 Test Item Value Reference Range Interpretation Comments Misc test HIV-1 RNA QUAL PCR name (test code = 2566) Misc test see note Human Immunodef iciency result (test Virus 1 (HIV-1) by code = 1730) Qualitative Music Box Mechanic-M ediated Amplification ( TMA) ARUP test code 5826665 HIV-1 by Qualit ative TMA See Note SOURCE/SPECIMEN PLASMA HIV-1 RNA, QUAL ITATIVE TMA HIV-1 RNA, QL TMA T SINGLE STAYER OPERATOR Test Not Performed. Initial testing necessi tated a repeat, but the re was insufficient sa mple to perform repeat. SAMPLE LEFT FOR REPEAT IS 50 uL. NEED 1000 u L TO RUN REPEAT. This te st was performed using the APTIMA(R) HIV-R NA Qualitative Ass ay (Gen-Probe). ======== ======== Te st performed by:[employer] [place] [id number] KYLE (test HIVQL - HIV-1 RNA, code = KYLE) Qualitative TMA (FROZEN)ARUP Test Code: 6225808Khruuz: plasma Derrick Padilla duplex venous upper rexvtetqo2195-70-76 22:57:00Interface, Radiology Results In - 04/30/2020 10:58 PM CST Vascular Ultrasound Laboratory Upper Extremity Venous Report [id number] [address] Pat.Name: LIO WATTS Pat.ID: [id number] .Date: 04/30/2020 Refer.: ELISEO ARCE MD Exam Time: 5:04:00PM Study Type:UE Venous Age: 9 1955,65Y Sex: FEMALE Sonogrphr: IBIS Espinosa, SANKET Pat. Stat.:Inpatient Room:[place] [address] 2020 Tape Vol: JM, CPT - 4: 28440 Echo Event ID:[id number] Order ID: [id number] Reason for Study:Arm swelling or pain, DVT [...] veins.*Preliminary result reported to ASHLEY Santos @ 2860 on 04/30/20.PHYSICIAN INTERPRETATION Venous examination of the both upper extremities and neck demonstratedno evidence of deep venous thrombosis. Total superficial vein thrombosis of the right basilic vein. FINDINGS : Signed 04/30/2020 10:57 PMFrancis Cabral MD, RPVIHouston MethodistXR Chest 2 Ki9897-36-48 16:21:01Hm Interface, Radiology Results Incoming - 04/30/2020 [...] active disease of the chest.1D2RAD_PS01[place] MethodistMidline Unsuccessful Aoihtkx4680-01-35 11:14:34ANicole zhang RN 04/30/2020 11:25 AMMidline Unsuccessful [...] RN Shea to access the vein, she was able to access the brachial vein without pain but dilator is unable to advance completely . Procedure aborted and ASHLEY Valdivia able to place a PIV g.20 in lower arm .Derrick JeanXR Abdomen 1 Vw Portable 2020-04-30 10:20:14Hm Interface, Radiology Results - 04/30/2020 10:23 AM CST EXAMINATION: XR ABDOMEN 1 VW PORTABLECLINICAL HISTORY: Abdominal pain post opCOMPARISON: No priorIMPRESSION:1.Residual barium within the colon throughout. No small bowel obstruction noted.[facility]-[id number] VwjhlljtoPcmkpu0586-27-86 14:57:57Carlee Malloy MD 04/28/2020 2:59 PMAirwayPerformed by: Carlee Malloy MDAuthorized by: Carlee Malloy MD Location: ORUrgency: ElectiveDifficult Airway: No Anesthesiologist: Kvng Malloy MDResident/SALES DEMONSTRATOR/AA: Allan Morocho, DOPerformed by: resident/SALES DEMONSTRATOR/AAPreoxygenated egtz449% O2: Yes C- spine Precautions Maintained Throughout: [...] - 04/27/2020 6:21 PM CST Echocardiography Report [id number] [address] Pat.Name: LIO WATTS.ID: [id number] .Date: 04/27/2020 Refer.MD: ELISEO ARCE MD Exam Time: 2:21:00 PM Study Type:Routine Echo Height: 64in Weight: 213lb BSA: 2.01 m2 Age: 9 1955,65Y Sex: FEMALE BP: 128/89 HR: 102 bpm Sonogrphr: SANKET Perkins. Stat.:Inpatient Room: [facility] Study Status:Final Echo Event ID:[id number] Order ID: [id number] Reason for Study:Atrial FibrillationHistory / Clinical:Hypertension Procedures: [...] PA systolic pressure.- MEASUREMENTS: ---- 2DParasternal Long [place] Ao An 2.2 cm LVPWd 1 cm [...] 04/27/2020 06:20 PMMoBobby Bourgeois MethodistFL Esophagram Double Ztkyciom4431-76-71 12:07:12 Interface, Radiology Results - 04/25/2020 12:10 [...] hernia. There was mild spontaneous marco roesophageal reflux.[id number]_PS01[facility] MethodistCT Chest Wo Contrast Abdomen Wo Contrast Pelvis Wo Ccigzsds7661-32-90 09:23:55Hm Interface, Radiology Results 04/21/2020 9:27 AM [...] chr onic and incidental findings as detailed above.[facility]-[id number] and approved by resident physician in radiology/fellow: Jenna Valenzuela M.D.I, Medhat Flowers Jr., [...] (qualifier Not Detected N value) URINALYSIS WITH [id number] 10:57:00 Test Item Value Reference Range Interpretation Comments Color (test code = UCOLR) Dk. Yellow Clarity (test code = UCLAR) Hazy Glucose (test code = UGLUC) NEGATIVE NEGATIVE N Bilirubin (test code = UBILI) NEGATIVE NEGATIVE N Ketones (test code = UKET) NEGATIVE NEGATIVE N Specific [place] (test code = 1.025 1.005-1.030 A USPGR) [...]
[2020-10-16 06:20] LABS: Absolute Lymphocytes (CBC) 1.3 K/uL (0.7-4.9); Basophils % 0.4 % (0-1.3); Hematocrit 29.9 % (36.0-45.0); Lymphocytes % 13.9 % (15.3-44.8); MPV 7.6 fL (7.6-11.3); RBC Red Blood Cell Count 3.95 M/uL (3.86-4.86)
[2020-10-16] MEDS ORDERED: NA CHLORIDE 0.9% 1,000 ML ONE (06:20)
[2020-10-16] MEDS ORDERED: ONDANSETRON 4 MG/2 ML VIAL ONE (06:20)
[2020-10-16] MEDS ORDERED: MORPHINE 4 MG/ML SYR ONE ×2 (06:20→07:16)
[2020-10-16 06:40] LABS: ALT/SGPT 36 U/L (12-78); AST/SGOT 32 U/L (15-37); Albumin 3.1 g/dL (3.4-5.0); Alkaline Phosphatase 78 U/L (45-117); BUN Blood Urea Nitrogen 28 mg/dL (7-18); Bicarbonate 31 mmol/L (21-32); Bilirubin Direct < 0.1 mg/dL (0-0.2); Bilirubin Total 0.2 mg/dL (0.2-1.0); Glucose Level 111 mg/dL (74-106); Lipase 87 U/L (73-393); Potassium 4.2 mmol/L (3.5-5.1); Protein, Total 6.9 g/dL (6.4-8.2); Sodium Level 145 mmol/L (136-145)
--- NOTE | 2020-10-16 06:53 | EDPHYS ---
Physician Documentation [facility] Name: Marjan Fleming Age: 65 yrs Sex: Female : 1955 Arrival Date: 10/16/2020 Time: 05:11 Bed 13 Private MD: ED Physician Liz Otoole HPI: 10/16 06:21 This 65 yrs old Female presents to ER via Wheelchair with complaints of Post ma2 Surgical Pain. 06:21 The patient presents with abdominal pain. Onset: The symptoms/episode began/occurred ma2 gradually, 1 day(s) ago. Associated signs and symptoms: Pertinent negatives: blood in stools, constipation, dysuria, headache, vaginal discharge, vomiting. Severity of pain: At its worst the pain was mild in the emergency department the pain is unchanged. The patient has not experienced similar symptoms in the past. s/p hernia repair here with abdominal pain, had normal bowel movement today, . Historical: - Allergies: 05:28 Bactrim DS; 05:28 butorphanol tartrate; 05:28 Fentanyl; 05:28 metoclopramide HCl; 05:28 Reglan; 05:28 Stadol; 05:28 sulfamethoxazole (bulk); 05:28 TRIMETHOPRIM; - Home Meds: 05:28 amiodarone 200 mg Oral tab 1 tab once daily [Active]; BuSpar Oral [Active]; Descovy wh Oral [Active]; Eliquis 5 mg Oral tab 1 tab 2 times per day [Active]; Hydralazine Oral [Active]; lisinopril Oral [Active]; Metoprolol Tartrate Oral [Active]; Norvasc Oral [Active]; raltegravir Oral [Active]; sertraline Oral [Active]; - PMHx: 05:28 Anxiety; Atrial Fib; Bipolar disorder; Chronic pain; COPD; esophageal varices; wh Hepatitis; HIV; Hypertension; Migraines; Panic Attacks; - Immunization history:: Adult Immunizations not up to date, Client reports receiving the 2nd dose of the Covid vaccine. - Social history:: Smoking status: Patient denies any tobacco usage or history of. Patient/guardian denies using alcohol, street drugs, The patient lives with family. - Family history:: not pertinent. ROS: 06:21 Constitutional: Negative for fever, chills, and weight loss. ma2 06:21 All other systems are negative. Exam: 06:21 Constitutional: This is a well developed, well nourished patient who is awake, alert, ma2 and in no acute distress. ENT: Nares patent. No nasal discharge, no septal abnormalities noted. Tympanic membranes are normal and external auditory canals are clear. Oropharynx with no redness, swelling, or masses, exudates, or evidence of obstruction, uvula midline. Mucous membranes moist. Neck: Trachea midline, no thyromegaly or masses palpated, and no cervical lymphadenopathy. Supple, full range of motion without nuchal rigidity, or vertebral point tenderness. No Meningismus. Chest/axilla: Normal chest wall appearance and motion. Nontender with no deformity. No lesions are appreciated. Cardiovascular: Regular rate and rhythm with a normal S1 and S2. No gallops, murmurs, or rubs. Normal PMI, no JVD. No pulse deficits. Respiratory: Lungs have equal breath sounds bilaterally, clear to auscultation and percussion. No rales, rhonchi or wheezes noted. No increased work of breathing, no retractions or nasal flaring. Abdomen/GI: abdomin is distended with laproscopy scar dry and non tender, otherwise abdomin is Soft, non-tender, with normal bowel sounds. No distension or tympany. No guarding or rebound. No evidence of tenderness throughout. Skin: Warm, dry with normal turgor. Normal color with no rashes, no lesions, and no evidence of cellulitis. MS/ Extremity: Pulses equal, no cyanosis. Neurovascular intact. Full, normal range of motion. Neuro: Awake and alert, GCS 15, oriented to person, place, time, and situation. Cranial nerves II-XII grossly intact. Motor strength 5/5 in all extremities. Sensory grossly intact. Cerebellar exam normal. Normal gait. 06:50 Abdomen/GI: Soft, non-tender, with normal bowel sounds. No distension or tympany. No ma2 guarding or rebound. No evidence of tenderness throughout. Vital Signs: 05:23 BP 169 / 76; Pulse 59; Resp 20; Temp 97.9; Pulse Ox 96% ; Weight 99.34 kg; Height 5 ft. wh 4 in. (162.56 cm); Pain 9/10; 06:39 BP 168 / 99; Pulse 60; Resp 18; Pulse Ox 96% on R/A; 05:23 Body Mass Index 37.59 (99.34 kg, 162.56 cm) MDM: 05:28 Patient medically screened. va2 06:21 Differential diagnosis: gastritis, gastroesophageal reflux disease, pancreatitis, ma2 urinary tract infection. 06:50 Data reviewed: vital signs, nurses notes. Counseling: I had a detailed discussion with ma2 the patient and/or guardian regarding: the historical points, exam findings, and any diagnostic results supporting the discharge/admit diagnosis, the presence of at least one elevated blood pressure reading (>120/80) during this emergency department visit, the need for outpatient follow up. Response to treatment: the patient's symptoms have resolved after treatment. 06:50 ED course: discussed with dr. sanchez, surgery was superficial to the abdominal wall, ma2 abd non tender. dr. sanchez advise to control pain and no indication for ct since abdomen is soft and non tender. i agree with recommendation. we gave patient pain medicine and will discharge home . 10/16 05:36 Order name: Basic Metabolic Panel; Complete Time: 06:44 ma2 10/16 05:36 Order name: CBC with Diff; Complete Time: 06:33 ma2 10/16 05:36 Order name: Hepatic Function; Complete Time: 06:44 ma2 10/16 05:36 Order name: Lipase; Complete Time: 06:44 ma2 10/16 05:36 Order name: IV Saline Lock; Complete Time: 06:08 va2 10/16 05:36 Order name: Labs collected and sent; Complete Time: 06:08 ma2 Administered Medications: 06:03 Drug: NS 0.9% 1000 ml Route: IV; Rate: 1 bolus; Site: right upper arm; 06:54 Follow up: Response: No adverse reaction; IV Status: Completed infusion 06:05 Drug: Zofran (Ondansetron) 4 mg Route: IVP; Site: right upper arm; 06:54 Follow up: Response: No adverse reaction; Nausea is decreased 06:07 Drug: morphine 4 mg {Note: RASS 0.} Route: IVP; Site: right upper arm; 06:54 Follow up: Response: No adverse reaction; Pain is decreased; RASS: Alert and Calm (0) 06:58 Drug: morphine 4 mg {Note: RASS 0.} Route: IVP; Site: left upper arm; 07:07 Follow up: Response: No adverse reaction Disposition: 10/16/20 06:53 Discharged to Home. Impression: Generalized abdominal pain. - Condition is Stable. - Discharge Instructions: Abdominal Pain, Adult. - Medication Reconciliation Form, Thank You Letter, Antibiotic Education, Prescription Opioid Use form. - Follow up: Private Physician; When: Tomorrow; Reason: Continuance of care. Signatures: Dispatcher [employer] [facility] Jonny Lloyd RN RN Liz Otoole MD MD ma2 Corrections: (The following items were deleted from the chart) 06:51 05:38 Abdomen Pelvis W Con+CT.RAD.BRZ ordered. [facility] 06:51 06:21 Constitutional: This is a well developed, well nourished patient who is awake, ma2 alert, and in no acute distress. ENT: Nares patent. No nasal discharge, no septal abnormalities noted. Tympanic membranes are normal and external auditory canals are clear. Oropharynx with no redness, swelling, or masses, exudates, or evidence of obstruction, uvula midline. Mucous membranes moist. Neck: Trachea midline, no thyromegaly or masses palpated, and no cervical lymphadenopathy. Supple, full range of motion without nuchal rigidity, or vertebral point tenderness. No Meningismus. Chest/axilla: Normal chest wall appearance and motion. Nontender with no deformity. No lesions are appreciated. Cardiovascular: Regular rate and rhythm with a normal S1 and S2. No gallops, murmurs, or rubs. Normal PMI, no JVD. No pulse deficits. Respiratory: Lungs have equal breath sounds bilaterally, clear to auscultation and percussion. No rales, rhonchi or wheezes noted. No increased work of breathing, no retractions or nasal flaring. Abdomen/GI: abdomin is distended with laproscopy scar dry and non tender, otherwise abdomin is Soft, non-tender, with normal bowel sounds. No distension or tympany. No guarding or rebound. No evidence of tenderness throughout. Skin: Warm, dry with normal turgor. Normal color with no rashes, no lesions, and no evidence of cellulitis. MS/ Extremity: Pulses equal, no cyanosis. Neurovascular intact. Full, normal range of motion. Neuro: Awake and alert, GCS 15, oriented to person, place, time, and situation. Cranial nerves II-XII grossly intact. Motor strength 5/5 in all extremities. Sensory grossly intact. Cerebellar exam normal. Normal gait. ma2 07:05 06:53 10/16/2020 06:53 Discharged to Home. Impression: Generalized abdominal pain. wh Condition is Stable. Forms are Medication Reconciliation Form, Thank You Letter, Antibiotic Education, Prescription Opioid Use. Follow up: Private Physician; When: Tomorrow; Reason: Continuance of care. ma2
--- NOTE | 2020-10-16 06:53 | ER ---
Nurse's Notes [facility] Name: Marjan Fleming Age: 65 yrs Sex: Female : 1955 Arrival Date: 10/16/2020 Time: 05:11 Bed 13 Private MD: Diagnosis: Generalized abdominal pain Presentation: 10/16 05:23 Chief complaint: Patient states: S/P Hernia Surgery yesterday, C/O Post op pain that wh never went away with the prescription medicine given. Coronavirus screen: Client reports previous positive COVID test result. Ebola Screen: Patient negative for fever greater than or equal to 101.5 degrees Fahrenheit, and additional compatible Ebola Virus Disease symptoms Patient denies exposure to infectious person. Initial Sepsis Screen: Does the patient meet any 2 criteria? No. Patient's initial sepsis screen is negative. Does the patient have a suspected source of infection? Yes: Skin breakdown/wound. Risk Assessment: Do you want to hurt yourself or someone else? Patient reports no desire to harm self or others. Onset of symptoms was October 16, 2020. 05:23 Method Of Arrival: Wheelchair 05:23 Acuity: BLAYNE 3 Historical: - Allergies: 05:28 Bactrim DS; 05:28 butorphanol tartrate; 05:28 Fentanyl; 05:28 metoclopramide HCl; 05:28 Reglan; 05:28 Stadol; 05:28 sulfamethoxazole (bulk); 05:28 TRIMETHOPRIM; - Home Meds: 05:28 amiodarone 200 mg Oral tab 1 tab once daily [Active]; BuSpar Oral [Active]; Descovy wh Oral [Active]; Eliquis 5 mg Oral tab 1 tab 2 times per day [Active]; Hydralazine Oral [Active]; lisinopril Oral [Active]; Metoprolol Tartrate Oral [Active]; Norvasc Oral [Active]; raltegravir Oral [Active]; sertraline Oral [Active]; - PMHx: 05:28 Anxiety; Atrial Fib; Bipolar disorder; Chronic pain; COPD; esophageal varices; wh Hepatitis; HIV; Hypertension; Migraines; Panic Attacks; - Immunization history:: Adult Immunizations not up to date, Client reports receiving the 2nd dose of the Covid vaccine. - Social history:: Smoking status: Patient denies any tobacco usage or history of. Patient/guardian denies using alcohol, street drugs, The patient lives with family. - Family history:: not pertinent. Screenin:28 Abuse screen: Denies threats or abuse. Denies injuries from another. Nutritional wh screening: No deficits noted. Tuberculosis screening: No symptoms or risk factors identified. Fall Risk None identified. Assessment: 05:28 General: Appears in no apparent distress. uncomfortable, Behavior is calm, cooperative, wh appropriate for age. Pain: Complains of pain in abdomen Pain does not radiate. Pain currently is 9 out of 10 on a pain scale. Quality of pain is described as aching, Pain began 1 day ago. Neuro: Level of Consciousness is awake, alert, obeys commands, Oriented to person, place, time, situation, Appropriate for age. Cardiovascular: Capillary refill < 3 seconds. Respiratory: Airway is patent Respiratory effort is even, unlabored, Respiratory pattern is regular, symmetrical. GI: Abdomen is round non-distended, Abd is soft Abdomen is tender to palpation Reports lower abdominal pain, upper abdominal pain. : No signs and/or symptoms were reported regarding the genitourinary system. EENT: No signs and/or symptoms were reported regarding the EENT system. Derm: Skin is intact, is healthy with good turgor, Skin is pink, warm \T\ dry. normal. Musculoskeletal: Circulation, motion, and sensation intact. 06:39 Reassessment: Patient appears in no apparent distress at this time. No changes from previously documented assessment. Patient and/or family updated on plan of care and expected duration. Pain level reassessed. Patient is alert, oriented x 3, equal unlabored respirations, skin warm/dry/pink. Vital Signs: 05:23 BP 169 / 76; Pulse 59; Resp 20; Temp 97.9; Pulse Ox 96% ; Weight 99.34 kg; Height 5 ft. wh 4 in. (162.56 cm); Pain 9/10; 06:39 BP 168 / 99; Pulse 60; Resp 18; Pulse Ox 96% on R/A; wh 05:23 Body Mass Index 37.59 (99.34 kg, 162.56 cm) ED Course: 05:11 Patient arrived in ED. bp1 05:13 Jonny Lloyd RN is Primary Nurse. 05:15 Liz Otoole MD is Attending Physician. ma2 05:25 Triage completed. 05:29 Patient has correct armband on for positive identification. Placed in gown. Bed in low wh position. Call light in reach. Side rails up X 1. Pulse ox on. NIBP on. 05:29 Arm band placed on right wrist. 05:50 Missed attempt(s): 22 gauge in left upper arm. Bleeding controlled, band aid applied, catheter tip intact. 07:04 No provider procedures requiring assistance completed. IV discontinued, intact, bleeding controlled, No redness/swelling at site. Administered Medications: 06:03 Drug: NS 0.9% 1000 ml Route: IV; Rate: 1 bolus; Site: right upper arm; 06:54 Follow up: Response: No adverse reaction; IV Status: Completed infusion 06:05 Drug: Zofran (Ondansetron) 4 mg Route: IVP; Site: right upper arm; 06:54 Follow up: Response: No adverse reaction; Nausea is decreased 06:07 Drug: morphine 4 mg {Note: RASS 0.} Route: IVP; Site: right upper arm; 06:54 Follow up: Response: No adverse reaction; Pain is decreased; RASS: Alert and Calm (0) 06:58 Drug: morphine 4 mg {Note: RASS 0.} Route: IVP; Site: left upper arm; 07:07 Follow up: Response: No adverse reaction Outcome: 06:53 Discharge ordered by . ma2 07:04 Discharged to home ambulatory. 07:04 Condition: stable 07:04 Discharge instructions given to patient, Instructed on discharge instructions, follow up and referral plans. POC Demonstrated understanding of instructions, follow-up care, POC 07:05 Patient left the ED. Signatures: Jonny Lloyd RN RN Liz Otoole MD MD [facility] Cinthia Mathew
[2020-10-16 07:11] VITALS: TEMP 97.9; O2SAT 96
[2020-10-16 07:12] VITALS: BP 168/99
== END 2020-10-16 07:05 | disposition home or self-care (01) ==
LOC: ER 05:07
DX: R10.84 Generalized abdominal pain (principal); Z98.890 Other specified postprocedural states; I10 Essential (primary) hypertension; J44.9 Chronic obstructive pulmonary disease, unspecified; F41.9 Anxiety disorder, unspecified; I48.91 Unspecified atrial fibrillation; Z79.01 Long term (current) use of anticoagulants; Z21 Asymptomatic human immunodeficiency virus [HIV] infection status; Z88.1 Allergy status to other antibiotic agents; Z88.2 Allergy status to sulfonamides; Z88.5 Allergy status to narcotic agent; Z88.8 Allergy status to other drugs, medicaments and biological substances
CPT/HCPCS: 85025; 80048; 36415; 80076; 83690; 99283; J7030; J2405

== ENCOUNTER → 2020-10-21 | Emergency (ER) | payer OTHER ==
[2011-12-26 14:45] VITALS: BP 143/96
--- OUTSIDE RECORDS SUMMARY | 2020-10-21 18:11 | XMS REPORT | Continuity of Care Document ---
:1955 Author Organization [facility] t Address [address] [place] [address] Care Team Providers Name Role Phone Asked, Pcp Primary Care Physician Unavailable HEMATPOUR Attending Clinician Unavailable Yazmin JENKINS Attending Clinician Curt Mitchell MD Attending Clinician Remigio JENKINS, Cameron Attending Clinician Carol Ann IZQUIERDO, M. Attending Clinician Hematpour Attending Clinician Meli SANCHEZ Attending Clinician Unavailable Clark SANCHEZ Attending Clinician Unavailable Tremayne JENKINS, PChelsie Attending Clinician Quinn JENKINS, Y.H. Attending Clinician Maren JENKINS Attending Clinician Michael Pinon MD Attending Clinician Shaheed Catalan Attending Clinician Mario Tapia MD Attending Clinician Nahum SANCHEZ Attending Clinician Unavailable DO SYL Attending Clinician Unavailable YAZMIN Admitting Clinician Unavailable DO SYL Admitting Clinician Unavailable Payers Payer Name Policy Type Policy Number Effective Date Expiration Date Christian lloyd [facility] [id number] 2020 2024 PLAN STAR PLUS 00:00:00 00:00:00 [facility] [id number] [place] MEDICARE(WELLME 00:00:00 Ted Brewer) AARP MEDICARE ADVANTAGE [id number] [place] Problems Condition Condition Condition Status Onset Resolution Last Treating Co mments Source Name Details Category Date Date Treatment Clinician Date Gastropare Gastropare Disease Active Overview : Lucas sis sis 4-12 Formattin Methodi 00:00: g of this st 00 note might be different from the original. Added automatic ally from request for surgery [id number] Dysphagia Dysphagia Disease Active Overview: Lucas 4-12 Formattin Methodi 00:00: g of this st 00 note might be different from the original. 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 Unstable [facility] Method[facility] total total [...] to drug Butorpha Propensi Active Hallucinatio 2019-05 Meza nol ty to ns 06-26 Methodi adverse 00:00: st reaction 00 s to drug Metoclop Propensi Active Andreahumza soares ramide ty to 09-23 Methodi Hcl adverse 00:00: st reaction 00 s to drug Sulfamet Propensi Active Hives, Rash 2015-05 [place] hoxazole ty to 06-24 Methodi adverse 00:00: st reaction 00 s to drug Stadol Stadol Active [facility] [employer] [place] fentaNYL fentaNYL Active Memori a l Marty Bactrim Bactrim Active [facility]oria [facility] [employer] [place] Family History Family Member Diagnosis Comments Start Date Stop Date Source Natural father Hypertension Derrick Jean Natural father Kidney disease Rashida Jean Social History Social Habit Start Date Stop Date Quantity Comments Source History of tobacco Current smoker Ho earnestine Yarsanism use Exposure to Not sure Lucas Metho dist SARS-CoV-2 (event) Cigarettes smoked 2020-10-03 2020-10-03 Derrick Eganist current (pack per 00:00:00 00:00:00 day) - Reported Cigarette 2020-10-03 2020-10-03 Meza Method ist pack-years 00:00:00 00:00:00 Tobacco use and 2020-10-03 2020-10-03 Never used Derrick Corbin ethodist exposure 00:00:00 00:00:00 Alcohol intake 2020-10-03 2020-10-03 Current drinker [place] on Yarsanism 00:00:00 00:00:00 of alcohol (finding) Alcohol Comment [...] Medication? Clinician (SIG) Name Name nystatin 2020- No [id number] Q.25D Take 5 mL Derrick (MYCOSTATIN 5-17 05-31 (500,000 Met hodi ) 100,000 00:00: 23:[address] unit/mL 00 :00 total) by suspension mouth 4 (four) times a day for 14 days. Swish in mouth sucralfate 2020- No 1g Q.25D Take 10 mL Meza (Carafate) 5-17 05-27 (1 g Methodi 100 mg/mL 00:00: 23:59 total) by st suspension 00 :00 mouth 4 (four) times a day for 10 days. lisinopril 0 Yes 40mg Q.5D Take 40 mg H [...] 0 Yes 50mg QD Take 50 mg Meza (APRESOLINE 5-14 by mouth Meth jason ) 50 MG 12:30: nightly. st tablet 02 busPIRone 0 Yes 20mg QD Take 20 mg [place] (BUSPAR) 10 5-14 by mouth Meth jason MG tablet 12:30: nightly. st 02 acetaminoph 2020-0 Yes 1000mg Q.5D Take 1,000 Meza en [...] ia 4-10 (Same as: l 14:00: Norvasc) Marty 00 emtricitabi No Notes: Caesar lisa ne 200 MG / 4-10 (Same as: l tenofovir 14:00: Descovy) alafenamide 00 Non-formul 25 MG Oral nancy Tablet [Descovy] [...] tartrate 4-09 tab, l 22:00: Route: PO, [place] 00 Drug form: TAB, BID, Dosing Weight 97.273, kg, Start date: 08/29/20 17:00:00 CDT, Duration: 30 day, Stop date: 09/28/20 9:00:00 CDT Raltegravir 0 No 400 mg, 1 M emoria 400 MG Oral 4- tab, l Tablet 22:00: Route: PO, Skylar nn [ISENTRE] 00 Drug form: TAB, BID, Dosing Weight 97.273, kg, Start date: 08/29/20 17:00:00 CDT, Duration: 30 day, Stop date: 09/28/20 9:00:00 CDT, 0 Morphine 0 No Notes: Memoria 08-29 (Same l 17:07: as:MORPhin e Sulfate) buPROPion No 150 mg, 1 Mem oria 24 hour - tab, l extended 16:00: Route: PO, Her mitchell release Drug form: ERTAB, Q24H, Dosing Weight 97.273, [...] INJ, ONCE, Stop date: 08/29/20 10:40:00 CDT fentaNYL No Route: IV, Mem oria (ANES) 08-29 Drug form: l 15:40: INJ, ONCE, Stop date: 08/29/20 10:40:00 CDT pantoprazol Yes 40 mg = 1 M emoria e 40 mg 4-09 tab, PO, l oral 15:27: Daily, # [place] enteric 00 30 tab, 0 coated Refill(s), tablet Pharmacy: [facility] 149, 162.56, cm, 08/29/20 5:30:00 CDT, Height, 97.273, kg, 08/29/20 5:30:00 CDT, Weight pantoprazol No 40 mg = 1 M emoria e 40 mg 4-09 tab, PO, l oral 15:26: Daily, # Marty enteric 00 30 tab, 0 coated Refill(s) tablet sucralfate Yes 1 gm = 1 Mem oria 1 g oral 4-09 tab, PO, l tablet 15:26: Q12H, # 28 Skylar nn 00 tab, 0 Refill(s), Pharmacy: [facility] 149, 162.56, cm, 08/29/20 5:30:00 CDT, Height, [...] ONCE, Stop date: 08/29/20 9:29:00 CDT heparin 1-0 No Route: IV, Caesar lisa (ANES) 08-29 Drug form: l 14:18: INJ, ONCE, [place] 00 Stop date: 08/29/20 9:18:00 CDT Labetalol 1-0 No 10 mg, Memori a 08-29 Route: l 14:01: IVP, [place] 00 Q5Min, Dosing Weight 97.273, kg, PRN Elevated BP, Start date: 08/29/20 9:01:00 CDT, Duration: 5 doses or times, Stop date: Limited # of times Acetaminoph 2020-0 No 1,000 mg, M emoria en 08-29 Route: PO, l 14:01: Drug form: [place] 00 TAB, ONCE, Dosing Weight 97.273, kg, PRN Pain Score 1-3, Start date: 08/29/20 9:01:00 CDT Oxycodone 2020-0 No 5 mg, Memoria Hydrochlori 08-29 Route: PO, l de 5 MG 14:01: Drug form: Herm ariel Oral Tablet 00 TAB, Q4H, Dosing Weight 97.273, kg, PRN Pain Score 4-6, Start date: 08/29/20 9:01:00 CDT, Duration: 30 day, Stop date: 09/28/20 9:00:00 CDT Hydromorpho 1-0 No 0.5 mg, Mem oria ne 08-29 Route: l 14:01: IVP, Marty 00 Q5Min, Dosing Weight 97.273, kg, PRN Pain Score 7-10, Start date: 08/29/20 9:01:00 CDT, Duration: 4 doses or times, Stop date: Limited # of times Flumazenil 2020-0 No 0.2 mg, Caesar lisa 08-29 Route: l 14:01: IVP, PRN, [place] 00 Dosing Weight 97.273, kg, PRN Benzodiaze pine Reversal, Initial dose, Start date: 08/29/20 9:01:00 CDT, Duration: 30 day, Stop date: 09/28/20 9:00:00 CDT Naloxone 1-0 No 0.4 mg, Memori a 08-29 Route: l 14:01: IVP, Marty 00 Q2MIN, Dosing Weight 97.273, kg, PRN Narcotic Reversal, Start date: 08/29/20 9:01:00 CDT, Duration: 8 doses or times, Stop date: Limited # of times Ondansetron No 4 mg, Memor ia 08-29 Route: [...] Drug form: l 10 13:15: INJ, Start [place] microgram date: 08/29/20 8:15:00 CDT, Stop date: 08/29/20 9:15:00 CDT Sodium No Route: IV, Memor ia Chloride 08-29 Total l 0.9% IV 12:30: Volume: [employer] [place] (ANES) 1000 00 1,000, mL Start date: 08/29/20 7:30:00 CDT, Stop date: 08/29/20 8:30:00 CDT busPIRone Yes 30 mg = 1 Mem oria 30 mg oral 09 tab, PO, l tablet 11:43: BID, # 60 Patel n 00 tab, 0 Refill(s) 24 HR Yes 150 mg = 1 Memori a Bupropion 09 tab, PO, l Hydrochlori 11:42: Q24H, # 30 Marty de 150 MG 00 tab, 0 Extended Refill(s) Release Tablet apixaban 5 Yes 5 mg, PO, Me moria MG Oral 08-29 Q12H, tab, l Tablet 11:41: 0 Marty [Eliquis] 00 Refill(s), For Atrial Fibrilatio n AMIODarone Yes 200 mg = 1 M emoria 200 mg oral 08-29 tab, PO, l tablet 11:38: Daily, # [...] QD Take 10 mg Meza (SINGULAIR) 07-28 03-08 by mouth Met hodi 10 mg 09:16: 00:[address] tablet 50 :00 mirtazapine 2020- No 15mg QD Take 15 mg Meza (REMERON) 07-28 03-08 by mouth Metho di 15 MG 09:16: [...] 2019-05- No 3mL Q.25D Take 3 mL Lucas -albuteroL 07-04 by Methodi (DUO-NEB) 00:00: 23:59 nebulizati s t 0.5-2.5 00 :00 on every 4 mg/3 mL (four) nebulizer hours while awake for 30 days. budesonide 2019-05 No Simple .5mg Q.5D Take 2 mL Lucas (PULMICORT) 07-04 chronic (0.5 mg M ethodi [...] No acute pain 1{tbl} Q6H Take 1 Meza en-codeine 07-04 tablet by Met loredo (TYLENOL [...] 2019-05 No 1{spray 1 spray Meza mg/actuatio 07-0208 } into each Me thodi n 00:00: 00:[address] spray,non-a 00 :00 once as erosol needed (breathing less than 8 per minute or inability to arouse) for up to 2 doses. triamterene 2019-05- No 1{tbl} QD Take 1 [place] -hydrochlor 06-27 tablet by Me nguyen othiazid 16:16: 00:[address] (MAXZIDE-25 20 [...] MRNA 2020-07-23 Completed [place] VACCINATION 00:00:00 Yarsanism PFIZER COVID-19 MRNA 2020-07-02 Completed [place] VACCINATION 00:00:00 Yarsanism Vital Signs Vital Name Observation Time Observation Value Comments Source Body height 2020-10-03 12:22:00 162.6 cm Lucas Yarsanism Body weight 2020-10-03 12:22:00 99.338 kg Lucas Yarsanism BMI 2020-10-03 12:22:00 37.59 kg/m2 Lucas Yarsanism Oxygen saturation in 2020-09-05 18:27:00 96 /min Lucas Yarsanism Arterial blood by Pulse oximetry Respiratory rate 2020-09-05 16:30:00 20 /min [place] [facility] Systolic blood 2020-09-05 16:25:00 156 mm[Hg] [place] pressure Diastolic blood 2020-09-05 16:25:00 80 mm[Hg] [place] on Yarsanism pressure Heart rate 2020-09-05 16:25:00 59 /min Lucas Yarsanism Body temperature 2020-09-05 16:25:00 37.11 Amina [place] [facility] Respitory Rate 2020-08-30 13:00:00 Memori al Marty Systolic (mm Hg) 2020-08-30 13:00:00 Caesar rial [place] Diastolic (mm Hg) 2020-08-30 13:00:00 Mem orial Marty Systolic (mm Hg) 2020-08-30 11:00:00 Caesar rial Marty Diastolic (mm Hg) 2020-08-30 11:00:00 Mem orial [place] Temperature Oral (F) 2020-08-30 11:00:00 98.4 F Memorial Marty Respitory Rate 2020-08-30 11:00:00 Memori al Marty Respitory Rate 2020-08-30 10:00:00 Memori al Marty Systolic (mm Hg) 2020-08-30 10:00:00 Caesar rial Marty Diastolic (mm Hg) 2020-08-30 10:00:00 Mem orial Marty Temperature Oral (F) 2020-08-30 00:00:00 96.9 F Memorial Marty Temperature Oral (F) 2020-08-29 11:26:00 97.6 F [facility] [place] Height 2020-08-29 10:30:00 162.56 cm Memorial Marty Weight 2020-08-29 10:30:00 Memorial Marty BMI Calculated 2020-08-29 10:30:00 Memori al Marty Procedures Procedure Date / Time Performing Source Performed Clinician OR [place] < 1 HOUR 2020-09-05 Eliseo Arce 17:39:00 Yarsanism SURGICAL PATHOLOGY REQUEST 2020-09-05 Eliseo Arce on 16:54:00 Yarsanism XR CHEST 1 VW PORTABLE 2020-09-05 Eliseo Arce 14:55:00 Yarsanism CA AN ELECTIVE ENDOTRACHEAL AIRWAY 2020-09-05 Kashmir Flood Meza 11:47:23 V. Yarsanism EGD, INTRAOPERATIVE 2020-09-05 Eliseo Arce 11:27:00 Yarsanism PARTIAL THROMBOPLASTIN TIME (PTT) 2020-09-05 Derrick Maharaj 10:04:00 Sarai Jean PROTHROMBIN TIME WITH INR 2020-09-05 Rashida Maharaj 10:04:00 Sarai Jean HC COMPLETE BLD COUNT W/AUTO DIFF 2020-09-01 Shanell Mitchell 10:45:00 Yarsanism PROTHROMBIN TIME WITH INR 2020-09-01 Shanell Mitchell 10:45:00 Yarsanism PARTIAL THROMBOPLASTIN TIME (PTT) 2020-09-01 Shanell Mitchell 10:45:00 Yarsanism ECG 12-LEAD 2020-09-01 Shanell Mitchell 10:31:26 Yarsanism COVID-19 QUALITATIVE PCR 2020-09-01 Shanell Mitchell 10:24:00 Yarsanism COMPREHENSIVE METABOLIC PANEL 2020-09-01 Shanell Mitchell 10:23:00 Yarsanism ESTIMATED GFR 2020-09-01 Shanell Mitchell 10:23:00 Yarsanism NM GASTRIC EMPTYING 2020-08-27 JereEliseo peoples 14:05:[address] CHEST WO CONTRAST ABDOMEN WO 2020-08-21 Eliseo Arce CONTRAST 10:20:00 Yarsanism FL ESOPHAGRAM SINGLE CONTRAST 2020-08-13 Eliseo Arceton 10:25:00 Yarsanism [id number] 2020-05-07 Derrick Engel 00:00:00 Historical Yarsanism BASIC METABOLIC PANEL 2020-05-02 Tru, Pau Fernández Lucas 09:08:00 Yarsanism HC COMPLETE BLD COUNT W/AUTO DIFF 2020-05-02 Tru, Pau Fernández Lucas 09:08:00 Yarsanism MAGNESIUM LEVEL 2020-05-02 Tru, Pau Fernández Meza 09:08:00 Yarsanism ESTIMATED GFR 2020-05-02 CadeEliseo monk Meza 09:08:00 Yarsanism CBC HEMOGRAM 2020-05-01 Idalmis Montilla Lucas 05:20:00 Yarsanism BASIC METABOLIC PANEL 2020-05-01 Idalmis Montilla Lucas 04:00:00 Yarsanism ESTIMATED GFR 2020-05-01 Idalmis Montilla Lucas 04:00:00 Yarsanism HEPATIC FUNCTION PANEL 2020-05-01 Idalmis Montilla Lucas 04:00:00 Yarsanism THYROID STIMULATING HORMONE 2020-05-01 Idalmis Montillau ston 04:00:00 Yarsanism US DUPLEX VENOUS UPPER EXTREMITY 2020-04-30 Ceasar Patel Lucas BILATERAL 17:36:00 Yarsanism XR CHEST 2 VW 2020-04-30 Tru, Pau Fernández Meza 16:18:36 Yarsanism MIDLINE INSERTION ATTEMPT - 2020-04-30 Burt Blesilda [place] UNSUCCESSFUL 11:14:34 Yarsanism XR ABDOMEN 1 VW PORTABLE 2020-04-30 Gracie Narayan Lucas 09:45:00 Rhonda Yarsanism ECG 12-LEAD 2020-04-30 Pau Ott Lucas 09:06:58 Yarsanism CA AN ELECTIVE ENDOTRACHEAL AIRWAY 2020-04-28 Carlee Malloy Reg grady Lucas 14:57:57 Yarsanism REPAIR, HIATAL HERNIA, 2020-04-28 YamzinEliseo Meza LAPAROSCOPIC, ROBOT-ASSISTED 13:38:00 Met hodist ESOPHAGOGASTRODUODENOSCOPY (EGD) 2020-04-28 Eliseo Arce 13:38:00 Yarsanism POC GLUCOSE 2020-04-28 Eliseo Arce 09:01:00 Yarsanism SURGICAL PATHOLOGY REQUEST 2020-04-28 Eliseo Arce on 08:27:00 Yarsanism BASIC METABOLIC PANEL 2020-04-28 Carlos Meza 02:11:00 [facility] Yarsanism HC COMPLETE BLD COUNT W/AUTO DIFF 2020-04-28 Yvonneemilyjacklyn Lucas 02:11:00 Luis Yarsanism MAGNESIUM LEVEL 2020-04-28 Zojacklyn Lucas 02:11:00 Luis Yarsanism PHOSPHORUS LEVEL 2020-04-28 [facility] 02:11:00 [facility] Yarsanism PROTHROMBIN TIME WITH INR 2020-04-28 ZogeraldoRashida villasenor n 02:11:00 [facility] Yarsanism PARTIAL THROMBOPLASTIN TIME (PTT) 2020-04-28 Carlos Meza 02:11:00 [facility] Yarsanism ESTIMATED GFR 2020-04-28 Eliseo Arce 02:11:00 Yarsanism TYPE AND SCREEN 2020-04-28 Eliseo Arce 02:11:00 Yarsanism POC GLUCOSE 2020-04-27 Eliseo Arce 23:38:00 Yarsanism POC GLUCOSE 2020-04-27 Eliseo Arce 20:14:00 Yarsanism TTE COMPLETE, WO CONTRAST, W 2020-04-27 Nieves Hyde [place] DOPPLER ([id number]) 15:00:00 Yarsanism POC GLUCOSE 2020-04-27 Eliseo Arce 12:30:00 Yarsanism BASIC METABOLIC PANEL 2020-04-27 Eliseo Arce 06:34:00 Yarsanism ESTIMATED GFR 2020-04-27 Eliseo Arce 06:34:00 Yarsanism POC GLUCOSE 2020-04-26 Eliseo Arce 21:18:00 Yarsanism ECG 12-LEAD 2020-04-26 Nieves Hyde 20:24:31 Yarsanism COVID-19 QUALITATIVE PCR 2020-04-26 Salmarohini Lucas 15:44:00 [facility] Yarsanism HC COMPLETE BLD COUNT W/AUTO DIFF 2020-04-26 Carlos Lucas 03:05:00 Luis Yarsanism BASIC METABOLIC PANEL 2020-04-26 Carlos Lucas 03:05:00 Luis Yarsanism MAGNESIUM LEVEL 2020-04-26 Carlos Lucas 03:05:00 Luis Yarsanism PHOSPHORUS LEVEL 2020-04-26 Carlos Lucas 03:05:00 Luis Yarsanism CD 4 SUBSET 2020-04-26 Eliseo Arce 03:05:00 Yarsanism ESTIMATED GFR 2020-04-26 Eliseo Arce 03:05:00 Yarsanism MISCELLANEOUS REFERRAL TEST 2020-04-26 Eliseo Arce [place] 03:05:00 Yarsanism POTASSIUM LEVEL 2020-04-25 Eliseo Arce 21:04:00 Yarsanism HC COMPLETE BLD COUNT W/AUTO DIFF 2020-04-25 Carlos Lucas 18:51:00 Luis Yarsanism BASIC METABOLIC PANEL 2020-04-25 Carlos Lucas 18:51:00 Luis Yarsanism MAGNESIUM LEVEL 2020-04-25 Carlos Lucas 18:51:00 Luis Yarsanism PHOSPHORUS LEVEL 2020-04-25 Carlos Lucas 18:51:00 Luis Yarsanism ESTIMATED GFR 2020-04-25 Eliseo Arce 18:51:00 Yarsanism [place] ESOPHAGRAM DOUBLE CONTRAST 2020-04-25 Eliseo Arce [place] 11:31:[address] CHEST WO CONTRAST ABDOMEN WO 2020-04-21, n-[facility] CONTRAST PELVIS WO CONTRAST 08:15:34 [facility] HC COMPLETE BLD COUNT W/AUTO DIFF 2020-04-21, Yen-Te Lucas 07:22:00 [facility]ational Yars[facility]ism COMPREHENSIVE METABOLIC PANEL 2020-04-21, n-[facility] [place] 07:22:00 [facility]regational Y[facility]ism LIPASE LEVEL 2020-04-21, Yen-Te Lucas 07:22:00 Congregational Yarsanism LACTIC ACID LEVEL, SEPSIS - NOW 2020-04-21, Yen-[facility] AND REPEAT 2X EVERY 3 HOURS 07:22:00 [facility]ational Meth odist ESTIMATED GFR 2020-04-21, Yen-[facility] 07:22:00 Mario Jean Plan of Care Planned Activity Planned Date Details Comments Source Future Scheduled 2020-12-21 INFLUENZA VACCINE [place] [facility] Test 00:00:00 [code = INFLUENZA VACCINE] Future Scheduled 2006-01-22 BREAST CANCER Lucas Me thodist Test 00:00:00 SCREENING [code = BREAST CANCER SCREENING] Future Scheduled 2006-01-22 COLONOSCOPY SCREENING [place] [facility] Test 00:00:00 [code = COLONOSCOPY SCREENING] Future Scheduled 2006-01-22 SHINGLES VACCINES [place] [facility] Test 00:00:00 (#1) [code = SHINGLES VACCINES (#1)] Future Scheduled 1977-01-22 Screening for Lucas Me thodist Test 00:00:00 malignant neoplasm of cervix (procedure) [code = 820168371] Future Scheduled 1966-01-22 DIABETES: RETINAL EYE [place] [facility] Test 00:00:00 EXAM [code = DIABETES: RETINAL EYE EXAM] Future Scheduled 1966-01-22 DIABETIC FOOT EXAM [place] [facility]ism Test 00:00:00 [code = DIABETIC FOOT EXAM] Encounters Start End Encounter Admission Attending Care Care Encounter Source Date/Time Date/Time Type Type Clinicians Facility Department ID 2020-09-30 Outpatient HEMATPOUR, [facility] [id number] [place] 13:16:03 BEVERLY Laird 2020-10-06 2020-10-06 Outpatient YAZMIN [facility] [id number] Lucas 00:00:00 00:00:00 RAY 964 Method i 2020-09-06 2020-09-06 Outpatient [facility] [id number] Lucas 00:00:00 00:00:00 108 Method i 2020-09-06 2020-09-06 Outpatient YAZMIN [facility] [id number] Lucas 00:00:00 00:00:00 RAY 437 Method i 2020-09-05 2020-09-05 [id number] Lucas 00:00:00 00:00:00 RAY 901 Method i 2020-09-01 2020-09-01 Outpatient SHANELL MITCHELL [facility] [id number] Lucas 00:00:00 00:00:00 882 Method i 2020-09-01 2020-09-01 Outpatient CHIHARA, [facility] [id number] Lucas 00:00:00 00:00:00 RAY [address] 2020-08-29 2020-08-30 Outpatient Hematpour, [facility] [id number] 05:20:00 09:10:00 Khashayar 2020-08-29 2020-08-29 Outpatient [facility] [id number] [facility] 05:20:00 05:20:00 2020-08-29 2020-08-29 Outpatient Hematpour, [facility] [id number] 05:20:00 05:20:00 Khashayar 2020-08-27 2020-08-27 Outpatient CHIHARA, [facility] [id number] Lucas 00:00:00 00:00:00 RAY [address] 2020-08-21 2020-08-21 Outpatient CADEA, [facility] [id number] Lucas 00:00:00 00:00:00 RAY [address] 2020-08-13 2020-08-13 Outpatient CHIHARA, [facility] [id number] Lucas 00:00:00 00:00:00 RAY [address] 2020-07-28 2020-07-28 Outpatient CHIMATAA, [facility] [id number] Lucas 00:00:00 00:00:00 RAY [address] 2020-07-23 2020-07-23 Outpatient TREMAYNE, [facility] [id number] Lucas 00:00:00 00:00:00 OMID [address] 2020-07-02 2020-07-02 Outpatient [facility] [id number] Lucas 00:00:00 00:00:[address] 2020-06-23 2020-06-23 Outpatient CADEA, [facility] [id number] Lucas 00:00:00 00:00:00 RAY [address] 2020-04-25 2020-05-03 Inpatient CHIHARA, [facility] [id number] Lucas 00:00:00 00:00:00 RAY [address] 2020-04-25 2020-04-25 Outpatient CHIHARA, [facility] [id number] Lucas 00:00:00 00:00:00 RAY [address] 2020-04-25 2020-04-25 Outpatient YAZMIN [facility] [id number] Lucas 00:00:00 00:00:00 RAY [address] 2020-04-21 2020-04-21 Emergency TU, YEN-TE [facility] [id number] Lucas 00:00:00 00:00:[address] Results Test Description Test Time Test Comments Results Result Sourc e Comments OR [place] < 1 Hour 2020-10-08 [facility] 14:41:[address] 10/08/2020 2:44 PM CDT EXAMINATI ON: OR [place] < 1 HOURC-arm fluoroscopy was requested in OR. Location: [facility] OR room 6 Procedure: EGD WITH BOTOX [...] Comme nts Case number (test code = 3008845) [id number] Surgical pathology report (test code = See link below for PDF Lab R eport 2252) Result status (test code = 9028357) This is Supplemental Report for [id number] Lucas MethodistXR Chest 1 Vw [id number] 18:06:58Hm Interface, Radiology Results 09/06/2020 6:09 PM [...] silhouette is enlarged, similar to prior.Bilateral shoulder arthroplasties.[facility] [place] [id number] [facility] 2020-09-05 11:47:23Kirit Flood MD 09/05/2020 11:48 [address]MAirway [...] RSI: Yes Number of Attempts at Approach: [address] [place] [address] [facility] [id number] 18:21:56 Test Item Value Reference Range Interpretation [...] wave abnormality, consider anterior ischemia-Abnormal ECG- Derrick Bravo-19 qualitative [id number] 17:48:41 Test Item Value Reference Range Interpretation Comments Interpretation (test Negative results do code = 0592584) not preclude 2019-nCoV infection and should not be used as the sole basis for treatment or other patient management decisions. Negative results must be combined with clinical observations, patient history, and epidemiological information. COVID-19 qualitative Not-Detected Not-Detected PCR result (test code = 16042-2) COVID-19 qualitative See link below for C ase Number: PCR (test code = PDF Lab Report [id number]) [id number] 16:31:00 Test Item Value Reference Range Interpretation Comments POC Activated Clotting Time (test code 153 s = POC Activated Clotting Time) [id number] 14:37:00 Test Item Value Reference Range Interpretation Comments POC Activated Clotting Time (test code 454 s = POC Activated Clotting Time) [facility] [id number] 14:13:00 Test Item Value Reference Range Interpretation Comments POC Activated Clotting Time (test code 354 s = POC Activated Clotting Time) [facility] BANK [id number] 10:37:00Negative (08/29/20 5:37 AM) [facility] HermannCHEM [id number] 10:37:38340Crzyzfoa HermannCHEM PANEL 2020-08-29 10:37:0028[facility] HermannCHEM [id number] 10:37:001.01[facility] HermannCHEM [id number] 10:37:55786Jvehtcud HermannCHEM [id number] 10:37:003.8[facility] HermannCHEM [id number] 10:37:64880Rjitoyjb HermannCHEM [id number] 10:37:0028[facility] HermannCHEM ZMJYE8077-17-96 10:37:009.8 [facility]annCHEM XBXFN0457-64-61 10:37:0011.8[facility] HermannCHEM PANEL 2020-08-29 10:37:0059[facility] HermannCHEM SIIKB8173-14-12 10:37:002.9[facility] EnuevgmAQFNCNVMLK1072-64-44 10:37:006.8[facility] QbpflswHTEZTYZCOL1470-62-42 10:37:004.47[facility] ObufrywLOANEMXGOZ1026-44-58 10:37:0010.6[facility] RUQOIKIFGW7522-43-37 10:37:0034.0[facility] IlslgchAXHZSUVYMB8446-36-59 10:37:00 76.1[facility] MpqltwgWWTGRLZCQC4500-98-06 10:37:00 Test Item Value Reference Range Interpretation Comments MCH (test code = MCH) 23.8 pg 27.0-31.0 [facility] JmhunenRPJVLBWGNR4720-51-09 10:37:0031.3[facility] HermannHEMATOLOGY 2020-08-29 10:37:0018.2[facility] NrfjnqhSSGGEAOOTR9212-75-59 10:37:09159Oglgkaoy CqpsgsjFGXYZBFWUX1907-09-70 10:37:007.5[facility] VcrgbkhNJFUUSLMWI1269-38-02 10:37:00 Test Item Value Reference Range Interpretation Comments PT (test code = PT) 12.8 s 12.0-14.7 [facility] FnxynloRIXHCBQTGW6215-33-79 10:37:00 Test Item Value Reference Range Interpretation Comments INR (test code = INR) 0.97 1 0.85-1.17 [facility] WamfxsiDJTKFUCFGA9411-54-32 10:37:00 Test Item Value Reference Range Interpretation Comments PTT (test code = PTT) 25.0 s 22.9-35.8 [facility] EaixrqbXHTTFMJCVI7984-78-88 10:37:0070.5[facility] 2020-08-29 10:37:0018.8[facility] IksyhvaOTHIHUPULD6694-57-57 10:37:009.5[facility] HykkwgjMNAIBZLAKT6956-77-31 10:37:000.9[facility] UyeuqhxTNXMZOAEAI0383-34-76 10:37:000.3[facility] XfhnyogYIAFCJCXWM8103-14-51 10:37:004.8[facility] TGGFDMVQJT9623-47-67 10:37:001.3[facility] FesfjnxRELIQSQOLS5844-83-98 10:37:000.6 [facility] CivibunRVXOAUGHES7059-59-76 10:37:000.1[facility] 2020-08-29 10:37:001+ *ABN*(08/29/20 5:37 AM)[facility] DprvnbwKRUBITWQUJ3162-71-38 10:37:00Not Detected (08/29/20 5:37 AM)[facility] Gastric Emptying 2020-08-27 18:14:39Hm Interface, Radiology Results 08/27/2020 6:17 PM CDT PROCEDURE: NM GASTRIC [...] rate, with complete emptying by 4 hours. [facility]-[id number] MethodistMiscellaneous referral ewqm6596-88-21 15:24:58 Test Item Value Reference Range Interpretation Comments Misc test HIV-1 RNA QUAL PCR name (test code = 2566) Misc test see note Human Immunodef iciency result (test Virus 1 (HIV-1) by code = 1730) Qualitative Office Nurse Practitioner-M ediated Amplification ( TMA) AR test code 3773008 HIV-1 by Qualit ative TMA See Note SOURCE/SPECIMEN PLASMA HIV-1 RNA, QUAL ITATIVE TMA HIV-1 RNA, QL TMA T PULP DRIER Test Not Performed. Initial testing necessi tated a repeat, but the re was insufficient sa mple to perform repeat. SAMPLE LEFT FOR REPEAT IS 50 uL. NEED 1000 u L TO RUN REPEAT. This te st was performed using the APTIMA(R) HIV-R NA Qualitative Ass ay (Gen-Probe). ======== ======== Te st performed by:JMEA[address] [place] [id number] KYLE (test HIVQL - HIV-1 RNA, code = KYLE) Qualitative TMA (FROZEN)ARUP Test Code: 2304317Xfmnrx: plasma Meza MethodistUs duplex venous upper mrxoixvev9293-94-64 22:57:00Interface, Radiology Results In - 04/30/2020 10:58 PM CST Vascular Ultrasound Laboratory Upper Extremity Venous Report [id number] [facility], [address] [address] Pat.Name: LIO WATTS Pat.ID: [id number] St.Date: 04/30/2020 Refer.MD: ELISEO ARCE MD Exam Time: 5:04:00PM Study Type:UE Venous Age: 9 1955,65Y Sex: FEMALE Sonogrphr: Dwayne Macias, IBIS, SANKET Pat. Stat.:Inpatient Room:[place] [address] 2020 Tape Vol: EDGAR, CPT - 4: 45949 Echo Event ID:[id number] Order ID: [id number] Reason for Study:Arm swelling or pain, DVT [...] veins.*Preliminary result reported to ASHLEY Santos @ 5230 on 04/30/20.PHYSICIAN INTERPRETATION Venous examination of the both upper extremities and neck demonstratedno evidence of deep venous thrombosis. Total superficial vein thrombosis of the right basilic vein. FINDINGS : Signed 04/30/2020 10:57 PMFrancis Cabral MD, VILucas MethodistXR Chest 2 Cp4794-22-54 16:21:01Hm Interface, Radiology Results Incoming - 04/30/2020 [...] active disease of the chest.1D2RAD_PS01[place] MethodistMidline Unsuccessful Jedvrdr2422-54-85 11:14:34ANicole zhang RN 04/30/2020 11:25 AMMidline Unsuccessful [...] a PIV g.20 in lower arm .Meza JigneshistXR Abdomen 1 Vw Portable 2020-04-30 10:20:14Hm Interface, Radiology Results - 04/30/2020 10:23 AM CST EXAMINATION: XR ABDOMEN 1 VW PORTABLECLINICAL HISTORY: Abdominal pain post opCOMPARISON: No priorIMPRESSION:1.Residual barium within the colon throughout. No small bowel obstruction noted.[id number] RignkynmqIkqnym2832-03-92 14:57:57Carlee Malloy MD 04/28/2020 2:59 PMAirwayPerformed by: Carlee Malloy MDAuthorized by: Carlee Malloy MD Location: ORUrgency: ElectiveDifficult Airway: No Anesthesiologist: Kvng Malloy MDResident/MOLDER/AA: Allan Morocho DOPerformed by: resident/MOLDER/AAPreoxygenated kdlo767% O2: Yes C- spine Precautions Maintained Throughout: [...] - 04/27/2020 6:21 PM CST Echocardiography Report [address] [place] [address] Pat.Name: LIO WATTS Pat.ID: [id number] .Date: 04/27/2020 Refer.MD: ELISEO ARCE MD Exam Time: 2:21:00 PM Study Type:Routine Echo Height: 64in Weight: 213lb BSA: 2.01 m2 Age: 9 1955,65Y Sex: FEMALE BP: 128/89 HR: 102 bpm Sonogrphr: SANKET Perkins Pat. Stat.:Inpatient Room: [facility] Study Status:Final Echo Event ID:[id number] Order ID: [id number] Reason for Study:Atrial FibrillationHistory / Clinical:Hypertension Procedures: [...] PA systolic pressure.- MEASUREMENTS: ---- 2DParasternal Long [place] Ao An 2.2 cm LVPWd 1 cm [...] LVOT CI 3.1 l/m/m2 Signed 04/27/2020 06:20 PMMohamBobby Garcia MethodistFL Esophagram Double Hqwqrqqf7239-41-46 12:07:12Hm Interface, Radiology Results - 04/25/2020 12:10 [...] Wo Contrast Abdomen Wo Contrast Pelvis Wo Mbxokbvu2394-26-70 09:23:55Hm Interface, Radiology Results 04/21/2020 9:27 AM [...] chr onic and incidental findings as detailed above.[facility]-[id number] and approved by president and cmo/fellow: Jenna Valenzuela M.D.I, Medhat Flowers Jr., M.D., [...] (qualifier Not Detected N value) URINALYSIS WITH [id number] 10:57:00 Test Item Value Reference Range Interpretation Comments Color (test code = UCOLR) Dk. Yellow Clarity (test code = UCLAR) Hazy Glucose (test code = UGLUC) NEGATIVE NEGATIVE N Bilirubin (test code = UBILI) NEGATIVE NEGATIVE N Ketones (test code = UKET) NEGATIVE NEGATIVE N Specific [place] (test code = 1.025 1.005-1.030 A USPGR) [...]
== END ==
LOC: ER 18:06
DX: R69 Illness, unspecified (principal); Z53.21 Procedure and treatment not carried out due to patient leaving prior to being seen by health care provider

== ENCOUNTER 2020-11-15 10:25 | Emergency (ER) | payer OTHER ==
--- OUTSIDE RECORDS SUMMARY | 2020-11-15 10:30 | XMS REPORT | Continuity of Care Document ---
:1955 Author Organization [facility] t Address [address] [place] [address] Dr. Alexis [address] [place] [address] Care Team Providers Name Role Phone Asked, Pcp Primary Care Physician Unavailable HEMATPOUR Attending Clinician Unavailable Clark SANCHEZ Attending Clinician Unavailable Andrez RAMIREZ Attending Clinician Unavailable Ronald AR Attending Clinician Yazmin JENKINS Attending Clinician Tomy Mitchell MD Attending Clinician Remigio JENKINS, V. Attending Clinician Carol Ann IZQUIERDO, M. Attending Clinician MD TOMY MITCHELL Attending Clinician Unavailable Hematpour Attending Clinician Meli SANCHEZ Attending Clinician Unavailable Tremayne JENKINS, P. Attending Clinician Quinn JENKINS, Y.H. Attending Clinician Maren JENKINS Attending Clinician Michael Pinon MD Attending Clinician Shaheed Catalan Attending Clinician MD YAZMIN Attending Clinician Unavailable Mario Tapia MD Attending Clinician Nahum SANCHEZ Attending Clinician Unavailable DO SYL Attending Clinician Unavailable YAZMIN Admitting Clinician Unavailable MD TOMY MITCHELL Admitting Clinician Unavailable MD YAZMIN Admitting Clinician Unavailable DO SYL Admitting Clinician Unavailable Payers Payer Name Policy Type Policy Number Effective Date Expiration Date S gabino [facility] [id number] 2012 PLAN STAR PLUS 00:00:00 [facility] [id number] [place] MEDICARE(WELLME 00:00:00 Ted Brewer) [facility] MEDICARE ADVANTAGE [id number] 05/2020-[facility] [place] Problems Condition Condition Condition Status Onset Resolution Last Treating Co mments Source Name Details Category Date Date Treatment Clinician Date Gastropare Gastropare Disease Active Overview : [place] sis sis -12 Formattin Methodi 00:00: g of this st note might be different from the original. Added automatic ally from request for surgery [id number] Dysphagia Dysphagia Disease Active Overview: [place] -12 Formattin Methodi 00:00: g of this st 00 note might be different from the original. 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 2020-10-15 Memoria PVI 3-30 17:07:00 l ABLATION CCL / 00:00: [place] W/ CARTO / EPS PVI 00 GA / T [place] W/ CARTO / GA / T Active 08/19/2020 [facility] Food Food Disease Active 2019-05 [place] intoleranc intoleranc 2-04 Me thodi e in adult e in adult 00:00: st 00 S/p S/p Disease Active [place] reverse reverse 10-19 Methodi 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:00: [...] Stomach [place] hoxazole ty to Comments) 2 pain Metho di -Trimeth adverse 00:00: st oprim reaction 00 s to drug Butorpha Propensi Active Hallucinatio 2019-05 Meza nol ty to ns 06-26 Methodi adverse 00:00: st reaction 00 s to drug Metoclop Propensi Active [place] ramide ty to 09-23 Methodi Hcl adverse 00:00: st reaction 00 s to drug Sulfamet Propensi Active Hives, Rash 2015-05 [place] hoxazole ty to 06-24 Methodi adverse 00:00: st reaction 00 s to drug Stadol Stadol Active Memoria l [place] Bactrim Bactrim Active Memoria l Marty fentaNYL fentaNYL Active Memori a l [place] Family History Family Member Diagnosis Comments Start Date Stop Date Source Natural father Hypertension Derrick Jean Natural father Kidney disease [place] [facility] Social History Social Habit Start Date Stop Date Quantity Comments Source History of tobacco Current smoker Ho elena Sabianism use Cigarettes smoked 2020-11-14 2020-11-14 Derrick Jean current (pack per 00:00:00 00:00:00 day) - Reported Cigarette 2020-11-14 2020-11-14 Derrick Egan ist pack-years 00:00:00 00:00:00 Tobacco use and 2020-11-14 2020-11-14 Never used Derrick Corbin ethodist exposure 00:00:00 00:00:00 Alcohol intake 2020-11-14 2020-11-14 Current drinker Porsha on Sabianism 00:00:00 00:00:00 of alcohol (finding) Alcohol Comment 2016-09-23 2016-09-23 rare Meza Emerald ethodist 00:00:00 00:00:00 [birth year] F Derrick Corbin ethodist 00:00:00 00:00:00 Smoking Status Start Date Stop Date Source Former smoker 2020-11-14 00:00:00 2020-11-14 00:00:00 Meza Sabianism Medications Ordered Filled Start Stop Current Ordering Indication Dosage Frequency Signature Comments Components Source Medication Medication Date Date Medication? Clinician (SIG) Name Name budesonide- 2020-2020- No 1{puff} QD Inhale 1 Meza formoteroL 6-25 06-25 puff every Me thodi (SYMBICORT) 14:37: 00:00 morning. s t 160-4.5 02 :00 mcg/actuati on inhaler lisinopril Yes 40mg Q.5D Take 40 mg [place] (PRINIVIL,Z 6-25 by mouth 2 Me thodi ESTRIL) 40 14:36: (two) st mg tablet 25 times a day. metoprolol Yes 100mg Q.5D Take 100 [place] tartrate 6-25 mg by Methodi (LOPRESSOR) 14:36: mouth 2 st 100 mg 25 (two) tablet times a day. amLODIPine Yes 10mg QD Take 10 mg [place] (NORVASC) 6-25 by mouth Method i 10 mg 14:36: daily. st tablet 25 LORAZepam Yes 2mg QD Take 2 mg Kilo ston (ATIVAN) 2 6-25 by mouth Metho di MG tablet 14:36: nightly as st 25 needed for anxiety. sertraline Yes 200mg QD Take 200 [place] (ZOLOFT) 6-25 mg by Methodi 100 MG 14:36: mouth st tablet 25 daily. clobetasol Yes 1{appli Q.5D Apply 1 [place] (TEMOVATE) 6-25 cation} applicatio Methodi 0.05 % 14:36: n st ointment 25 topically 2 (two) times a day. (affected area in groin) hydrALAZINE 0 Yes 50mg [id number] Take 50 mg Meza (APRESOLINE 6-25 [id number] by mouth 3 Methodi ) 50 MG 14:36: 3D (three) st tablet 25 times a day. busPIRone 0 Yes 20mg QD Take 20 mg [place] (BUSPAR) 10 6-25 by mouth Meth jason MG tablet 14:36: nightly. st 25 acetaminoph 0 Yes 1000mg Q.5D Take 1,000 Meza en 6-25 mg by Methodi (TYLENOL) 14:36: mouth 2 st 500 MG 25 (two) tablet times a day as needed for headaches. albuterol Yes 1{puff} Q4H Inhale 1 [place] sulfate 90 6-25 puff every Met hodi mcg/actuati 14:36: 4 (four) st on aero 25 hours as powdr needed breath act (shortness w/sensor of breath or wheezing). buPROPion 0 Yes 150mg QD Take 150 Kilo ston (WELLBUTRIN 6-25 mg by Methodi ) 100 MG 14:36: mouth st tablet 25 daily. esomeprazol 0 Yes 20mg QD Take 20 mg Meza e (NexIUM) 6-25 by mouth Metho di 20 MG 14:36: daily st capsule 25 before breakfast. amIODarone 0 Yes 200mg QD Take 200 [place] (PACERONE) 6-25 mg by Methodi 200 MG 14:36: mouth st tablet 25 daily. nystatin 0 2020- No [id number] Q.25D Take 5 mL Meza (MYCOSTATIN 5-17 05-31 (500,000 Met hodi ) 100,000 00:00: 23:[address] unit/mL 00 :00 total) by suspension mouth 4 (four) times a day for 14 days. Swish in mouth sucralfate 0 2020- No 1g Q.25D Take 10 mL Meza (Carafate) 5-17 05-27 (1 g Methodi 100 mg/mL 00:00: 23:59 total) by st suspension 00 :00 mouth 4 (four) times a day for 10 days. pantoprazol 0 2020- No 40mg Q.5D Take 2 Kilo ston e 4-16 05-16 tablets Methodi (Protonix) 00:00: 23:59 ([address] 20 MG EC 00 :00 total) by tablet mouth 2 (two) times a day for 30 days. esomeprazol 2020-0 202- No 40mg Q.5D Take 40 mg Meza e (NexIUM) 4-12 04-12 by mouth 2 Me thodi 40 MG 08:54: 00:00 (two) st capsule 18 :00 times a day. LORAZepam 2mg QD Take 2 mg [place] (ATIVAN) 2 09-01-12 by mouth Meth jason MG tablet 08:51: 00:[address] 15 :00 morning. busPIRone 20mg QD Take 20 mg [place] (BUSPAR) 10 12 -12 by mouth Met hodi MG tablet 08:50: [...] 0.9% 4-10 (Same as: l 02:00: BD Marty 00 Posiflush) Eliquis No Notes: Memoria 4-10 Same as: l 02:00: Eliquis Hydralazine No Notes: Caesar lisa Hydrochlori 4-10 (Same as: l de 50 MG 02:00: Apresoline Her mitchell Oral Tablet ) May interfere w/enteral feedings Take With Food acetaminoph No Notes: Do M emoria en-codeine 4-10 not exceed l #3 00:12: 4gm/day of acetaminop hen. (Same as: Tylenol with Codeine # 3) Buspirone No Notes: Memori a 08-29 (Same As: l 22:00: BuSpar) Lisinopril No 40 mg, 1 Mem oria 4- tab, l 22:00: Route: PO, [place] 00 Drug form: TAB, BID, Dosing Weight 97.273, kg, Start date: 08/29/20 17:00:00 CDT, Duration: 30 day, Stop date: 09/28/20 9:00:00 CDT metoprolol No 100 mg, 1 Me moria tartrate - tab, l 22:00: Route: PO, Marty 00 Drug form: TAB, BID, Dosing Weight 97.273, kg, Start date: 08/29/20 17:00:00 CDT, Duration: 30 day, Stop date: 09/28/20 9:00:00 CDT Raltegravir No 400 mg, 1 M emoria 400 MG Oral - tab, l Tablet 22:00: Route: PO, Skylar nn [ISENTRESS] 00 Drug form: TAB, BID, Dosing Weight 97.273, kg, Start date: 08/29/20 17:00:00 CDT, Duration: 30 day, Stop date: 09/28/20 9:00:00 CDT, 0 Morphine No Notes: Memoria 08-29 (Same l 17:07: [...] tab, PO, l oral 15:27: Daily, # Marty enteric 00 30 tab, 0 coated Refill(s), tablet Pharmacy: [facility] 149, 162.56, cm, 08/29/20 5:30:00 CDT, Height, 97.273, kg, 08/29/20 5:30:00 CDT, Weight pantoprazol No 40 mg = 1 M emoria e 40 mg - tab, PO, l oral 15:26: Daily, # Marty enteric 00 30 tab, 0 coated Refill(s) tablet sucralfate Yes 1 gm = 1 Mem oria 1 g oral -09 tab, PO, l tablet 15:26: Q12H, # 28 Skylar nn 00 tab, 0 Refill(s), Pharmacy: [facility] 149, 162.56, cm, 08/29/20 5:30:00 CDT, [...] CDT, Stop date: 08/29/20 11:00:00 CDT heparin 0 No Route: IV, Caesar lisa (ANES) 08-29 Drug form: l 14:49: INJ, ONCE, Stop date: 08/29/20 9:49:00 CDT propofol No Route: IV, Mem oria (ANES) 08-29 Drug form: l 14:29: INJ, ONCE, Stop date: 08/29/20 9:29:00 CDT heparin No Route: IV, Caesar lisa (ANES) 08-29 Drug form: l 14:18: INJ, ONCE, Stop date: 08/29/20 9:18:00 CDT Labetalol 0 No 10 mg, Memori a 08-29 Route: l 14:01: IVP, [place] Q5Min, Dosing Weight 97.273, kg, PRN Elevated BP, Start date: 08/29/20 9:01:00 CDT, Duration: 5 doses or times, Stop date: Limited # of times Acetaminoph No 1,000 mg, M emoria en 08-29 Route: PO, l 14:01: Drug form: [place] 00 TAB, ONCE, Dosing Weight 97.273, kg, PRN Pain Score 1-3, Start date: 08/29/20 9:01:00 CDT Oxycodone 2020-0 No 5 mg, Memoria Hydrochlori 08-29 Route: PO, l de 5 MG 14:01: Drug form: Herm ariel Oral Tablet 00 TAB, Q4H, Dosing Weight 97.273, kg, PRN Pain Score 4-6, Start date: 08/29/20 9:01:00 CDT, Duration: 30 day, Stop date: 09/28/20 9:00:00 CDT Hydromorpho 2020-0 No 0.5 mg, Mem oria ne 08-29 Route: l 14:01: IVP, [place] 00 Q5Min, Dosing Weight 97.273, kg, PRN Pain Score 7-10, Start date: 08/29/20 9:01:00 CDT, Duration: 4 doses or times, Stop date: Limited # of times Flumazenil No 0.2 mg, Caesar lisa 08-29 Route: l 14:01: IVP, PRN, Dosing Weight 97.273, kg, PRN Benzodiaze pine Reversal, Initial dose, Start date: 08/29/20 9:01:00 CDT, Duration: 30 day, Stop date: 09/28/20 9:00:00 CDT Naloxone No 0.4 mg, Memori a 08-29 Route: l 14:01: IVP, [place] 00 Q2MIN, Dosing Weight 97.273, kg, PRN Narcotic Reversal, Start date: 08/29/20 9:01:00 CDT, Duration: 8 doses or times, Stop date: Limited # of times Ondansetron No 4 mg, Memor ia 08-29 Route: l 14:01: IVP, ONCE, Dosing Weight 97.273, kg, PRN Nausea & Vomiting, Start date: 08/29/20 9:01:00 CDT lidocaine No Route: IV, Me moria (ANES) 08-29 Drug form: l 13:52: INJ, ONCE Stop date: 08/29/20 8:52:00 CDT rocuronium No Route: IV, M emoria (ANES) 08-29 Drug form: l 13:52: INJ, ONCE, Stop date: 08/29/20 8:52:00 CDT propofol 0 No Route: IV, Mem oria (ANES) 08-29 Drug form: l 13:52: INJ, ONCE, Stop date: 08/29/20 8:52:00 CDT dexamethaso No Route: IV, Memoria ne (ANES) 08-29 Drug form: l 13:52: INJ, ONCE, Stop date: 08/29/20 8:52:00 CDT fentaNYL No Route: IV, Mem oria (ANES) 08-29 Drug form: l 13:42: INJ, ONCE, Marty 00 Stop date: 08/29/20 8:42:00 CDT norepinephr No [...] 150 mg = 1 Memori a Bupropion -09 tab, PO, l Hydrochlori 11:42: Q24H, # 30 Marty de 150 MG 00 tab, 0 Extended Refill(s) Release Tablet apixaban 5 Yes 5 mg, PO, Me moria MG Oral -09 Q12H, tab, l Tablet 11:41: 0 Marty [Eliquis] 00 Refill(s), For Atrial Fibrilatio n AMIODarone Yes 200 mg = 1 M emoria 200 mg oral -09 tab, PO, l tablet 11:38: Daily, # [place] 00 90 tab, 3 Refill(s) normal No 1,000 mL, Memori a saline 0.9% 08-29 Rate: 100 l IV 1,000 mL 10:30: ml/hr, Herm ariel 00 Infuse over: 10 hr, Route: IV, Dosing Weight 97.273 kg, Total Volume: 1,000, Start date: 08/29/20 5:30:00 CDT, Duration: 30 day, Stop date: 09/28/20 5:29:00 CDT, 2.13, m2, 0 pantoprazol [place] e 08-29 Methodi (PROTONIX) 00:00: 00:00 st 40 MG EC 00 :00 tablet sucralfate [place] (CARAFATE) 08-29 Methodi 1 gram 00:00: 00:00 st tablet 00 :00 Eliquis 5 Yes Meza mg tablet 08-16 Methodi 00:00: st 00 montelukast No 10mg QD Take 10 mg Meza (SINGULAIR) 07-28 by mouth Met hodi 10 mg 09:16: 00:[address] tablet 50 :00 mirtazapine 15mg QD Take 15 mg Meza (REMERON) 07-28 by mouth Metho di 15 MG 09:16: 00:[address] tablet 43 :00 needed (insomnia) . amIODarone 2019-05 200mg QD Take 1 Kilo ston (PACERONE) [...] (six) hours for 30 days. ipratropium 2019-05 3mL Q.25D Take 3 mL Meza -albuteroL [...] No acute pain 1{tbl} Q6H Take 1 [place] en-codeine 07-04 tablet by Met loredo (TYLENOL [...] methocarbam 2019-05- No 1000mg Q.25D Take 2 [place] oL 07-04 tablets Methodi (ROBAXIN) 00:00: 23:59 [...] 2019-05- No 1{spray 1 spray Meza mg/actuatio 2-10 07-28 } into each Me thodi n 00:00: 00:[address] spray,non-a 00 :00 once as erosol needed (breathing less than 8 per minute or inability to arouse) for up to 2 doses. triamterene 2019-05- No 1{tbl} QD Take 1 [place] -hydrochlor 06-27 tablet by De thodi othiazid 16:16: 00:[address] (MAXZIDE-25 [...] MRNA 2020-07-23 Completed [place] VACCINATION 00:00:00 Sabianism PFIZER COVID-19 MRNA 2020-07-02 Completed [place] VACCINATION 00:00:00 Sabianism Vital Signs Vital Name Observation Time Observation Value Comments Source Body weight 2020-11-14 14:29:00 99.338 kg Derrick Jean BMI 2020-11-14 14:29:00 37.59 kg/m2 Derrick Jean Body height 2020-10-03 12:22:00 162.6 cm Derrick Jean Oxygen saturation in 2020-09-05 18:27:00 96 /min Derrick Jean Arterial blood by Pulse oximetry Respiratory rate 2020-09-05 16:30:00 20 /min Andrea Jean Systolic blood 2020-09-05 16:25:00 156 mm[Hg] Rashida n Sabianism pressure Diastolic blood 2020-09-05 16:25:00 80 mm[Hg] [place] [facility] pressure Heart rate 2020-09-05 16:25:00 59 /min [place] Sabianism Body temperature 2020-09-05 16:25:00 37.11 Amina [place] [facility] Respitory Rate 2020-08-30 13:00:00 Memori al Marty Systolic (mm Hg) 2020-08-30 13:00:00 Caesar rial [place] Diastolic (mm Hg) 2020-08-30 13:00:00 Mem orial [place] Systolic (mm Hg) 2020-08-30 11:00:00 Caesar rial Marty Diastolic (mm Hg) 2020-08-30 11:00:00 Mem orial [place] Temperature Oral (F) 2020-08-30 11:00:00 98.4 F [facility] Marty Respitory Rate 2020-08-30 11:00:00 Memori al Marty Respitory Rate 2020-08-30 10:00:00 Memori al Marty Systolic (mm Hg) 2020-08-30 10:00:00 Caesar rial [place] Diastolic (mm Hg) 2020-08-30 10:00:00 Mem orial [place] Temperature Oral (F) 2020-08-30 00:00:00 96.9 F [facility] Marty Temperature Oral (F) 2020-08-29 11:26:00 97.6 F [facility] Height 2020-08-29 10:30:00 162.56 cm [facility] Weight 2020-08-29 10:30:00 [facility] BMI Calculated 2020-08-29 10:30:00 [facility] [place] Procedures Procedure Date / Time Performing Source Performed Clinician OR FL < 1 HOUR 2020-09-05 Eliseo Arce 17:39:00 Sabianism SURGICAL PATHOLOGY REQUEST 2020-09-05 Eliseo Arce on 16:54:00 Sabianism XR CHEST 1 VW PORTABLE 2020-09-05 Eliseo Arce 14:55:00 Sabianism OR AN ELECTIVE ENDOTRACHEAL AIRWAY 2020-09-05 Kashmir Flood 11:47:23 V. Sabianism EGD, INTRAOPERATIVE 2020-09-05 Eliseo Arce 11:27:00 Sabianism PARTIAL THROMBOPLASTIN TIME (PTT) 2020-09-05 Derrick Maharaj 10:04:00 Sarai Lieberman Sabianism PROTHROMBIN TIME WITH INR 2020-09-05 Carol Ann Rashida n 10:04:00 Sarai Lieberman Sabianism HC COMPLETE BLD COUNT W/AUTO DIFF 2020-09-01 Shanell Mitchell 10:45:00 Sabianism PROTHROMBIN TIME WITH INR 2020-09-01 Shanell Mitchellhumza n 10:45:00 Sabianism PARTIAL THROMBOPLASTIN TIME (PTT) 2020-09-01 Shanell Mitchell 10:45:00 Sabianism ECG 12-LEAD 2020-09-01 Shanell Mitchell 10:31:26 Sabianism COVID-19 QUALITATIVE PCR 2020-09-01 Shanell Mitchell 10:24:00 Sabianism COMPREHENSIVE METABOLIC PANEL 2020-09-01 Shanell Mitchell elena 10:23:00 Sabianism ESTIMATED GFR 2020-09-01 Shanell Mitchell 10:23:00 Sabianism NM GASTRIC EMPTYING 2020-08-27 Eliseo Arce 14:05:[address] CHEST WO CONTRAST ABDOMEN WO 2020-08-21 Eliseo Arce CONTRAST 10:20:00 Sabianism FL ESOPHAGRAM SINGLE CONTRAST 2020-08-13 Eliseo Arceton 10:25:00 Sabianism [id number] 2020-05-07 Derrick Engel 00:00:00 Historical Sabianism BASIC METABOLIC PANEL 2020-05-02 Pau Ott Meza 09:08:00 Sabianism HC COMPLETE BLD COUNT W/AUTO DIFF 2020-05-02 Pau Ott 09:08:00 Sabianism MAGNESIUM LEVEL 2020-05-02 Pau Ott Meza 09:08:00 Sabianism ESTIMATED GFR 2020-05-02 Eliseo Arce [place] 09:08:00 Sabianism CBC HEMOGRAM 2020-05-01 Idalmis Montilla 05:20:00 Sabianism BASIC METABOLIC PANEL 2020-05-01 Idalmis Montilla Meza 04:00:00 Sabianism ESTIMATED GFR 2020-05-01 Idalmis Montilla 04:00:00 Sabianism HEPATIC FUNCTION PANEL 2020-05-01 Idalmis Montilla 04:00:00 Sabianism THYROID STIMULATING HORMONE 2020-05-01 Idalmis Montilla ston 04:00:00 Sabianism US DUPLEX VENOUS UPPER EXTREMITY 2020-04-30 Ceasar Patel ee [place] BILATERAL 17:36:00 Sabianism XR CHEST 2 VW 2020-04-30 Pau Ott [place] 16:18:36 Sabianism MIDLINE INSERTION ATTEMPT - 2020-04-30 Nicole Daileyton UNSUCCESSFUL 11:14:34 Sabianism XR ABDOMEN 1 VW PORTABLE 2020-04-30 Gracie Narayan [place] 09:45:00 Rhonda Sabianism ECG 12-LEAD 2020-04-30 Tru, Pau Fernández [place] 09:06:58 Sabianism OR AN ELECTIVE ENDOTRACHEAL AIRWAY 2020-04-28 Mary Malloyl Reg grady [place] 14:57:57 Sabianism REPAIR, HIATAL HERNIA, 2020-04-28 Eliseo Arce LAPAROSCOPIC, ROBOT-ASSISTED 13:38:00 Met hodnadege ESOPHAGOGASTRODUODENOSCOPY (EGD) 2020-04-28 Eliseo Arce 13:38:00 Sabianism POC GLUCOSE 2020-04-28 Eliseo Arce 09:01:00 Sabianism SURGICAL PATHOLOGY REQUEST 2020-04-28 lEiseo Arce on 08:27:00 Sabianism BASIC METABOLIC PANEL 2020-04-28 Carlos [place] 02:11:00 Luis Sabianism HC COMPLETE BLD COUNT W/AUTO DIFF 2020-04-28 Carlos [place] 02:11:00 Luis Sabianism MAGNESIUM LEVEL 2020-04-28 Carlos [place] 02:11:00 Luis Sabianism PHOSPHORUS LEVEL 2020-04-28 Carlso [place] 02:11:00 [facility] Sabianism PROTHROMBIN TIME WITH INR 2020-04-28 Andrea Gonzalezto n 02:11:00 [facility] Sabianism PARTIAL THROMBOPLASTIN TIME (PTT) 2020-04-28 Carlos [place] 02:11:00 [facility] Sabianism ESTIMATED GFR 2020-04-28 Eliseo Arce 02:11:00 Sabianism TYPE AND SCREEN 2020-04-28 Eliseo Arce 02:11:00 Sabianism POC GLUCOSE 2020-04-27 Eliseo Arce 23:38:00 Sabianism POC GLUCOSE 2020-04-27 Eliseo Arce 20:14:00 Sabianism TTE COMPLETE, WO CONTRAST, W 2020-04-27 Nieves Hyde [place] DOPPLER ([id number]) 15:00:00 Sabianism POC GLUCOSE 2020-04-27 Eliseo Arce 12:30:00 Sabianism BASIC METABOLIC PANEL 2020-04-27 Eliseo Arce 06:34:00 Sabianism ESTIMATED GFR 2020-04-27 Eliseo Arce 06:34:00 Sabianism POC GLUCOSE 2020-04-26 Eliseo Arce 21:18:00 Sabianism ECG 12-LEAD 2020-04-26 Barrett Nieves EnocChelsie Meza 20:24:31 Sabianism COVID-19 QUALITATIVE PCR 2020-04-26 Amisole [place] 15:44:00 Luis Sabianism HC COMPLETE BLD COUNT W/AUTO DIFF 2020-04-26 Yvonnerashmi [place] 03:05:00 Luis Sabianism BASIC METABOLIC PANEL 2020-04-26 Amimaria elena [place] 03:05:00 Luis Sabianism MAGNESIUM LEVEL 2020[facility]04-[facility] 03:[facility]00 Luis Sabianism PHOSPHORUS LEVEL 2020-04-26 [facility] 03[facility]05:00 Luis Sabianism CD 4 SUBSET 2020-04-26 Eliseo Arce 03:05:00 Sabianism ESTIMATED GFR 2020-04-26 Eliseo Arce 03:05:00 Sabianism MISCELLANEOUS REFERRAL TEST 2020-04-26 Eliseo Arce [facility] ton 03:05:00 Sabianism POTASSIUM LEVEL 2020-04-25 Eliseo Arce 21:04:00 Sabianism HC COMPLETE BLD COUNT W/AUTO DIFF 2020-04-25 Yvonnemaria elena [place] 18:51:00 Luis Sabianism BASIC METABOLIC PANEL 2020-04-25 Salma [place] 18:51:00 Luis Sabianism MAGNESIUM LEVEL 2020-04-[facility] 18:51[facility]00 Luis Sabianism PHOSPHORUS LEVEL 2020-04-25 [facility] 18:51:00 Luis Sabianism ESTIMATED GFR 2020-04-25 Eliseo Arce 18:51:00 Sabianism FL ESOPHAGRAM DOUBLE CONTRAST 2020-04-25 Eliseo Arce Ho elena 11:31:[address] CHEST WO CONTRAST ABDOMEN WO 2020-04-21, JoleneGee [place] CONTRAST PELVIS WO CONTRAST 08:15:34 Mario valadez HC COMPLETE BLD COUNT W/AUTO DIFF 2020-04-21, Geraldo [place] 07:22:00 Mario Jean COMPREHENSIVE METABOLIC PANEL 2020-04-21, JoleneGee [facility] 07:22:00 Mario Jean LIPASE LEVEL 2020-04-21, JoleneGee [place] 07:22:00 Mario Jean LACTIC ACID LEVEL, SEPSIS - NOW 2020-04-21, JoleneGee [place] AND REPEAT 2X EVERY 3 HOURS 07:22:00 Mario valadez ESTIMATED GFR 2020-04-21, JoleneGee [place] 07:22:00 Mario Jean Plan of Care Planned Activity Planned Date Details Comments Source Future Scheduled 2020-12-21 INFLUENZA VACCINE [facility] Test 00:00:00 [code = INFLUENZA VACCINE] Future Scheduled 2006-01-22 BREAST CANCER [place] Me [facility]odist Test 00:00:00 SCREENING [code = BREAST CANCER SCREENING] Future Scheduled 2006-01-22 COLONOSCOPY SCREENING [place] [facility] Test 00:00:00 [code = COLONOSCOPY SCREENING] Future Scheduled 2006-01-22 SHINGLES VACCINES [place] [facility] Test 00:00:00 (#1) [code = SHINGLES VACCINES (#1)] Future Scheduled 1977-01-22 Screening for [place] Me thodist Test 00:00:00 malignant neoplasm of cervix (procedure) [code = 379372132] Future Scheduled 1966-01-22 DIABETES: RETINAL EYE [place] [facility] Test 00:00:00 EXAM [code = DIABETES: RETINAL EYE EXAM] Future Scheduled 1966-01-22 DIABETIC FOOT EXAM [place] [facility] Test 00:00:00 [code = DIABETIC FOOT EXAM] Encounters Start End Encounter Admission Attending Care Care Encounter Source Date/Time Date/Time Type Type Clinicians Facility Department ID 2020-10-31 [id number] [place] 09:44:50 [facility] 2020-10-31 [id number] [place] 07:54:08 KHMARCELOR Healt h 2020-09-30 Outpatient HEMATPOUR, [facility] [id number] [place] 13:16:03 B[place]LY Laird h 2020-10-31 2020-10-31 Office Hematpour, [facility] 6400 [id number] 07:54:00 09:45:[address] [id number] 2020-10-30 2020-10-30 Abstract Andrez, [facility] 6400 [id number] 00:00:00 00:00:[address] [id number] 2020-10-29 2020-10-29 [facility] [id number] 00:00:00 00:00:00 [facility] [id number] [facility] [id number] 2020-10-06 2020-10-06 Outpatient CHIHARA, [facility] [id number] [place] 00:00:00 00:00:00 RAY 964 Method i 2020-09-06 2020-09-06 Outpatient CHIHARA, [facility] [id number] [place] 00:00:00 00:00:00 RAY 437 [facility] 2020-09-06 2020-09-06 Outpatient [facility] [id number] [place] 00:00:00 00:00:[address] 2020-09-05 2020-09-05 Outpatient CHIHARA, [facility] [id number] [place] 00:00:00 00:00:00 RAY 901 [facility] 2020-09-01 2020-09-01 Outpatient SHANELL MITCHELL [facility] [id number] [place] 00:00:00 00:00:[address] 2020-09-01 2020-09-01 Outpatient CHIHARA, [facility] [id number] [place] 00:00:00 00:00:00 RAY [address] 2020-08-29 2020-08-30 Outpatient Hematpour, [facility] [id number] 05:20:00 09:10:00 Khashayar 2020-08-29 2020-08-29 Outpatient Hematpour, [facility] [id number] 05:20:00 05:20:00 Khashayar 00 2020-08-29 2020-08-29 Outpatient [facility] 7500 [facility] 05:20:00 05:20:00 2020-08-27 2020-08-27 Outpatient CHIHARA, [facility] [id number] [place] 00:00:00 00:00:00 RAY [address] 2020-08-21 2020-08-21 Outpatient CHIHARA, [facility] [id number] [place] 00:00:00 00:00:00 RAY [address] 2020-08-13 2020-08-13 Outpatient CHIHARA, [facility] [id number] [place] 00:00:00 00:00:00 RAY [address] 2020-07-28 2020-07-28 Outpatient CHIHARA, [facility] [id number] [place] 00:00:00 00:00:00 RAY [address] 2020-07-23 2020-07-23 Outpatient TREMAYNE, [facility] [id number] [place] 00:00:00 00:00:00 OMID [id number] 2020-07-02 2020-07-02 Outpatient [facility] [id number] [place] 00:00:00 00:00:[address] 2020-06-23 2020-06-23 Outpatient CHIHARA, [facility] [id number] [place] 00:00:00 00:00:00 RAY [address] 2020-04-25 2020-05-03 Inpatient CHIMATAA, [facility] [id number] [place] 00:00:00 00:00:00 RAY [address] 2020-04-25 2020-04-25 Outpatient CHIMATAA, [facility] [id number] [place] 00:00:00 00:00:00 RAY [address] 2020-04-25 2020-04-25 Outpatient NETTIEA, [facility] [id number] [place] 00:00:00 00:00:00 RAY [address] 2020-04-21 2020-04-21 Emergency TU, [place]ID[place]N-TE [facility] [id number] [place] 00:00:00 00:00:[address] Results Test Description Test Time Test Comments Results Result Sourc e Comments OR FL < 1 Hour 2020-10-08 [facility], [place] 14:41:[address] - 10/08/2020 2:44 PM CDT EXAMINATI ON: OR FL < 1 HOURC-arm fluoroscopy was requested in OR. Location: [facility] OR room 6 Procedure: EGD WITH BOTOX [...] Comme nts Case number (test code = 0092291) [id number] Surgical pathology report (test code = See link below for PDF Lab R eport 2253) Result status (test code = 6325578) This is Supplemental Report for [id number] [place] [facility] Chest 1 Vw Ndgtrqyp2587-10-48 18:06:58 Interface, Radiology Results - 09/06/2020 6:09 [...] silhouette is enlarged, similar to prior.Bilateral shoulder arthroplasties.[facility][id number] 2020-09-05 11:47:23Kirit Flood MD 09/05/2020 11:48 AMAirway [...] RSI: Yes Number of Attempts at Approach: [address] [place] [address] Methodist[facility] 12 otdv2103-52-63 18:21:56 Test Item Value Reference Range Interpretation [...] T wave abnormality, consider anterior ischemia-Abnormal ECG- [place] JigneshnadegeCOVID-19 qualitative [id number] 17:48:41 Test Item Value Reference Range Interpretation Comments Interpretation (test Negative results do code = 6546638) not preclude 2019-nCoV infection and should not be used as the sole basis for treatment or other patient management decisions. Negative results must be combined with clinical observations, patient history, and epidemiological information. COVID-19 qualitative Not-Detected Not-Detected PCR result (test code = 71533-0) COVID-19 qualitative See link below for C ase Number: PCR (test code = PDF Lab Report [id number]) Derrick McleanNwvcuiqkmPNIF-UmE-0 (COVID-19) RNA [Presence] in Respiratory specimen by FRANCISCA with probe jxuodmppj7888-91-81 17:48:30 Test Item Value Reference Range Interpretation Comments SARS-CoV-2 (COVID-19) RNA Not detected Not-Detected [Presence] in Respiratory specimen by FRANCISCA with probe detection (test code = 39411-7) KXBFCGBJXO6964-98-98 16:31:00 Test Item Value Reference Range Interpretation Comments POC Activated Clotting Time (test code 153 s = POC Activated Clotting Time) [facility] OgfhqaxVHBZQRPAZD3512-85-97 14:37:00 Test Item Value Reference Range Interpretation Comments POC Activated Clotting Time (test code 454 s = POC Activated Clotting Time) [facility]TfhoreqGSTZEWJTME3961-84-62 14:13:00 Test Item Value Reference Range Interpretation Comments POC Activated Clotting Time (test code 354 s = POC Activated Clotting Time) [facility] OPUZCNJ6100-32-13 10:37:00Negative (08/29/20 5:37 AM) [facility] HermannCHEM YFAXU2382-42-18 10:37:86409Xgiykzkt HermannCHEM PANEL 2020-08-29 10:37:0028[facility] HermannCHEM MXXKD3944-82-74 10:37:001.01[facility] HermannCHEM XXUWB4087-75-85 10:37:65313Sthcekub HermannCHEM AGYSI7774-29-47 10:37:003.8[facility] HermannCHEM AXCJU4748-54-53 10:37:57207Baqnssqv HermannCHEM WTOKX4233-76-10 10:37:0028[facility] HermannCHEM XHVFQ8963-12-30 10:37:009.8 [facility] HermannCHEM SAFLF7309-72-47 10:37:0011.8[facility] HermannCHEM PANEL 2020-08-29 10:37:0059[facility] HermannCHEM OGXKJ6173-30-20 10:37:002.9[facility] ZklafiyURKEKRZLHN0739-76-62 10:37:006.8[facility] AsukiqnNNDGIYVITW8308-39-91 10:37:004.47[facility]orial QsjenamKWRWCMNCYD6462-71-61 10:37:0010.6[facility] [place] PSRJITVSXT9646-42-49 10:37:0034.0[facility] PdnogyeHLLSZOHDBT7663-14-99 10:37:00 76.1[facility]orial IzwajseCYDGRLJFHV5773-61-88 10:37:00 Test Item Value Reference Range Interpretation Comments MCH (test code = MCH) 23.8 pg 27.0-31.0 [facility] GfcgflxFHGANMXTIM3302-33-25 10:37:0031.3[facility] HermannHEMATOLOGY 2020-08-29 10:37:0018.2[facility] AsxahpqRWRBLXPJFL8961-28-25 10:37:52624Jvrujrqv VgrjdbxVEVIUUOWAH2701-48-22 10:37:007.5[facility] HjyrcmvRQDDOSZTXC4122-68-87 10:37:00 Test Item Value Reference Range Interpretation Comments PT (test code = PT) 12.8 s 12.0-14.7 [facility] JmlvgrsTUQQJMWGZY7473-19-71 10:37:00 Test Item Value Reference Range Interpretation Comments INR (test code = INR) 0.97 1 0.85-1.17 [facility] IcoknzxYDOGJFZGSD6420-94-74 10:37:00 Test Item Value Reference Range Interpretation Comments PTT (test code = PTT) 25.0 s 22.9-35.8 [facility] SdwsncjEMKODXCIHJ4587-47-60 10:37:0070.5[facility] HermannHEMATOLOGY 2020-08-29 10:37:0018.8[facility] IxkmzmsMZYTNYCDMA2515-77-24 10:37:009.5[facility] MarvovpJWQYLSVMVT2178-89-38 10:37:000.9[facility]orial JyupnsyMMROMPWOHF8133-34-32 10:37:000.3[facility]orial XxpnchrSKICVFXDUS5827-02-20 10:37:004.8[facility] Marty ZITJUDEBDM2527-18-83 10:37:001.3[facility]orial PzktzujJFVFVENEXI8114-83-99 10:37:000.6 Memorial YmzkvbbAZSSIRGORI8747-00-32 10:37:000.1[facility] HermannHEMATOLOGY 2020-08-29 10:37:001+ *ABN*(08/29/20 5:37 AM)[facility]entonXczttrmZSBNATSAGO2064-46-08 10:37:00Not Detected (08/29/20 5:37 AM)[facility] Gastric Emptying 2020-08-27 18:14:39Hm Interface, Radiology [...] rate, with complete emptying by 4 hours. [facility]-[id number] MethodistMiscellaneous referral ljsi1208-95-23 15:24:58 Test Item Value Reference Range Interpretation Comments Misc test HIV-1 RNA QUAL PCR name (test code = 2566) Misc test see note Human Immunodef iciency result (test Virus 1 (HIV-1) by code = 1730) Qualitative Voice Data Communications Engineer-M ediated Amplification ( TMA) ARUP test code 4293616 HIV-1 by Qualit ative TMA See Note SOURCE/SPECIMEN PLASMA HIV-1 RNA, QUAL ITATIVE TMA HIV-1 RNA, QL TMA T CLIENT LIAISON Test Not Performed. Initial testing necessi tated a repeat, but the re was insufficient sa mple to perform repeat. SAMPLE LEFT FOR REPEAT IS 50 uL. NEED 1000 u L TO RUN REPEAT. This te st was performed using the APTIMA(R) HIV-R NA Qualitative Ass ay (Gen-Probe). ======== ======== Te st performed by:IN [address] [place] [address] KYLE (test HIVQL - HIV-1 RNA, code = KYLE) Qualitative TMA (FROZEN)ARUP Test Code: 5919310Jhnbvt: plasma Derrick Padilla duplex venous upper pqtivlnkk1812-85-88 22:57:00Interface, Radiology Results In - 04/30/2020 10:58 PM CST Vascular Ultrasound Laboratory Upper Extremity Venous Report [address] [place] [address] Pat.Name: LIO WATTS Pat.ID: [id number] .Date: 04/30/2020 Refer.MD: ELISEO ARCE MD Exam Time: 5:04:00PM Study Type:UE Venous Age: 9 1955,65Y Sex: FEMALE Sonogrphr: IBIS Espinosa RCS Pat. Stat.:Inpatient Room:[place] [address] 2020 Tape Vol: , CPT - 4: 58919 Echo Event ID:[id number] Order ID: [id number] Reason for Study:Arm swelling or pain, DVT [...] veins.*Preliminary result reported to ASHLEY Santos @ 1729 on 04/30/20.PHYSICIAN INTERPRETATION Venous examination of the both upper extremities and neck demonstratedno evidence of deep venous thrombosis. Total superficial vein thrombosis of the right basilic vein. FINDINGS : Signed 04/30/2020 10:57 PMFrancis Cabral MD, VIFont[place] MethodistXR Chest 2 [id number] 16:21:01Hm Interface, Radiology Results Incoming - 04/30/2020 [...] active disease of the chest.1D2RAD_PS01[facility] MethodistMidline Unsuccessful Vyamvxa2658-12-03 11:14:34ANicole zhang RN 04/30/2020 11:25 AMMidline Unsuccessful [...] place a PIV g.20 in lower arm .[facility] 1 Vw Portable 2020-04-30 10:20:14Hm Interface, Radiology Results - 04/30/2020 10:23 AM CST EXAMINATION: XR ABDOMEN 1 VW PORTABLECLINICAL HISTORY: Abdominal pain post opCOMPARISON: No priorIMPRESSION:1.Residual barium within the colon throughout. No small bowel obstruction noted.[facility]-[id number] CprxzresfUzggby6055-70-12 14:57:57Carlee Malloy MD 04/28/2020 2:59 PMAirwayPerformed by: Carlee Malloy MDAuthorized by: Carlee Malloy MD Location: ORUrgency: ElectiveDifficult Airway: No Anesthesiologist: Kvng Malloy MDResident/PARTY PLAN SALESPERSON/AA: Allan Morocho DOPerformed by: resident/PARTY PLAN SALESPERSON/AAPreoxygenated havs644% O2: Yes C- spine Precautions Maintained Throughout: [...] No Number of Attempts at Approach: 1 [place] MethodistTransthoracic Echocardiogram Complete, (w Contrast, Strain and 3D if needed)2020-04-27 18:20:00Interface, Radiology Results In - 04/27/2020 6:21 PM CST Echocardiography Report [address] [place] [address] Pat.Name: LIO WATTS Marta.ID: [id number] .Date: 04/27/2020 Refer.MD: ELISEO ARCE MD Exam Time: 2:21:00 PM Study Type:Routine Echo Height: 64in Weight: 213lb BSA: 2.01 m2 Age: 9 1955,65Y Sex: FEMALE BP: 128/89 HR: 102 bpm Sonogrphr: SANKET Perkins Pat. Stat.:Inpatient Room: [facility] Study Status:Final Echo Event ID:[id number] Order ID: [id number] Reason for Study:Atrial FibrillationHistory / Clinical:Hypertension Procedures: [...] PA systolic pressure.- MEASUREMENTS: ---- 2DParasternal Long [place] Ao An 2.2 cm LVPWd 1 cm [...] CI 3.1 l/m/m2 Signed 04/27/2020 06:20 PMBobby ContrerasARS-CoV-2 (COVID-19) RNA [Presence] in Respiratory specimen by FRANCISCA with probe [id number] 21:42:14 Test Item Value Reference Range Interpretation Comments SARS-CoV-2 (COVID-19) RNA Not detected Not-Detected [Presence] in Respiratory specimen by FRANCISCA with probe detection (test code = 86535-6) [place] Esophagram Double Lewyksev4216-37-43 12:07:12Hm Interface, Radiology Results - 04/25/2020 12:10 [...] Wo Contrast Abdomen Wo Contrast Pelvis Wo Egejkjav5560-03-99 09:23:55Hm Interface, Radiology Results Incoming - 04/21/2020 9:27 AM CST EXAMINATION: CT [...] aorta.4.Additional chronic and incidental findings as detailed above.[facility]-[id number] and approved by vice president of engineering/fellow: Stefani Freeman, Medhat Flowers Jr., M.D., personally reviewed the [...] (qualifier Not Detected N value) URINALYSIS WITH [id number] 10:57:00 Test Item Value Reference Range Interpretation Comments Color (test code = UCOLR) Dk. Yellow Clarity (test code = UCLAR) Hazy Glucose (test code = UGLUC) NEGATIVE NEGATIVE N Bilirubin (test code = UBILI) NEGATIVE NEGATIVE N Ketones (test code = UKET) NEGATIVE NEGATIVE N Specific [place] (test code = 1.025 1.005-1.030 A USPGR) [...]
[2020-11-15] MEDS ORDERED: NA CHLORIDE 0.9% 250 ML ONE (11:42)
[2020-11-15] MEDS ORDERED: ONDANSETRON 4 MG/2 ML VIAL ONE (11:42)
[2020-11-15] MEDS ORDERED: MORPHINE 2 MG/ML SYR ONE (11:42)
--- NOTE | 2020-11-15 11:52 | RAD REPORT ---
EXAM DESCRIPTION: CT - Stone Protocol - 11/15/2020 11:22 am CLINICAL HISTORY: FLANK PAIN COMPARISON: Abdomen Pelvis W Contrast dated 07/25/2020 TECHNIQUE: Axial 5 mm thick images were obtained without oral or IV contrast. The gdcmd-vj-oziw span s the entirety of the system including uppermost abdomen and lung bases. All CT scans are performed using dose optimization technique as appropriate and may include automated exposure control or mA/KV adjustment according to patient size. FINDINGS: No hydronephrosis is present and no obstructing ureteral calculi. No suspicious renal mass es. Isodense masses and pyelonephritis are not excluded on a stone protocol CT scan. No significant a drenal finding. No urinary bladder suspicious finding. Patient has multiple round homogeneous low-den sity masses largest measuring 4.8 cm upper pole left kidney. These have been shown to be incidental r enal cysts. Mostly contracted urinary bladder shows no suspicious finding. Atrophic uterus and bilate ral ovaries show no suspicious findings. Imaged portions of the liver, spleen and pancreas show no suspicious findings on non-contrast imaging . Cholecystectomy clips are present with no biliary tree dilatation. No suspicious bowel findings. Postsurgical changes are present at the GE junction stable from prior i maging. Stool volume is moderate. No active GI process seen. No hernia, mass or bulky lymphadenopathy noted. No free air, free fluid or inflammatory stranding. No significant bony abnormality. IMPRESSION: Noncontrast CT abdomen and pelvis imaging, as detailed above, without significant or julian picious acute finding. Isodense masses and pyelonephritis are not excluded on stone protocol technique.
[2020-11-15 12:24] LABS: Urine Blood Negative (Negative); Urine Glucose Negative (Negative); Urine Protein Negative (Negative)
[2020-11-15 12:51] LABS: Urine RBC <5 /HPF (NONE SEEN)
[2020-11-15 12:53] LABS: Urine Bacteria <20 /HPF (<20)
[2020-11-15 13:12] LABS: Absolute Lymphocytes (CBC) 1.1 K/uL (0.7-4.9); Basophils % 0.6 % (0-1.3); Hematocrit 33.2 % (36.0-45.0); Lymphocytes % 12.7 % (15.3-44.8); MPV 7.3 fL (7.6-11.3); RBC Red Blood Cell Count 4.58 M/uL (3.86-4.86)
[2020-11-15 14:32] LABS: ALT/SGPT 51 U/L (12-78); Albumin 3.5 g/dL (3.4-5.0); Alkaline Phosphatase 99 U/L (45-117); BUN Blood Urea Nitrogen 32 mg/dL (7-18); Bicarbonate 29 mmol/L (21-32); Bilirubin Direct < 0.1 mg/dL (0-0.2); Bilirubin Total 0.4 mg/dL (0.2-1.0); Glucose Level 119 mg/dL (74-106); Lipase 92 U/L (73-393); Protein, Total 7.5 g/dL (6.4-8.2); Sodium Level 141 mmol/L (136-145)
[2020-11-15 14:35] LABS: AST/SGOT 48 U/L (15-37); Potassium 3.9 mmol/L (3.5-5.1)
--- NOTE | 2020-11-15 15:02 | ER ---
Nurse's Notes [facility] Name: Marjan Fleming Age: 65 yrs Sex: Female : 1955 Arrival Date: 11/15/2020 Time: 10:30 Bed 14 Private MD: Lele Rahman H Diagnosis: Low back pain;Unspecified symptoms and signs involving the genitourinary system Presentation: 11/15 10:43 Chief complaint: Patient states: Bilateral flank pain with nausea and slight blood in ll1 urine for 3 days. No fever. Coronavirus screen: Client denies travel out of the [place] in the last 14 days. At this time, the client does not indicate any symptoms associated with coronavirus-19. Ebola Screen: Patient denies travel to an Ebola-affected area in the 21 days before illness onset. Initial Sepsis Screen: Does the patient meet any 2 criteria? No. Patient's initial sepsis screen is negative. Does the patient have a suspected source of infection? Yes: Dysuria/Frequency/Urgency/UTI. Risk Assessment: Do you want to hurt yourself or someone else? Patient reports no desire to harm self or others. Onset of symptoms was November 13, 2020. 10:43 Method Of Arrival: Ambulatory ll1 10:43 Acuity: BLAYNE 3 ll1 Historical: - Allergies: 10:44 Bactrim DS; ll1 10:44 butorphanol tartrate; ll1 10:44 Fentanyl; ll1 10:44 metoclopramide HCl; ll1 10:44 Reglan; ll1 10:44 Stadol; ll1 10:44 sulfamethoxazole (bulk); ll1 10:44 TRIMETHOPRIM; ll1 - PMHx: 10:44 Anxiety; COPD; Hepatitis; HIV; esophageal varices; Hypertension; Chronic pain; ll1 Migraines; Bipolar disorder; Atrial Fib; Panic Attacks; - Immunization history:: Client reports having NOT received the Covid vaccine. Flu vaccine status is unknown. - Social history:: Smoking status: Patient/guardian denies using tobacco, the patient reports quitting approximately 1 years ago. Screenin:00 Abuse screen: Denies threats or abuse. Denies injuries from another. Nutritional ca1 screening: No deficits noted. Tuberculosis screening: No symptoms or risk factors identified. Fall Risk IV access (20 points). Assessment: 11:00 General: Appears in no apparent distress. comfortable, Behavior is calm, cooperative, ca1 appropriate for age. Pain: Complains of pain in left low back and left mid back Pain does not radiate. Pain currently is 9 out of 10 on a pain scale. Pain began 1 day ago. Is intermittent. Neuro: Level of Consciousness is awake, alert, obeys commands, Oriented to person, place, time, situation. Cardiovascular: Heart tones S1 S2 present Capillary refill < 3 seconds Patient's skin is warm and dry. GI: Abdomen is round non-distended, Bowel sounds present X 4 quads. Abd is soft and non tender X 4 quads. : Urine is clear. Derm: Derm: Skin is intact, is healthy with good turgor, Skin is pink, warm \T\ dry. Musculoskeletal: Circulation, motion, and sensation intact. Capillary refill < 3 seconds. 12:00 Reassessment: Patient appears in no apparent distress at this time. Patient and/or ca1 family updated on plan of care and expected duration. Pain level reassessed. Patient is alert, oriented x 3, equal unlabored respirations, skin warm/dry/pink. 13:00 Reassessment: Patient appears in no apparent distress at this time. Patient and/or ca1 family updated on plan of care and expected duration. Pain level reassessed. Patient is alert, oriented x 3, equal unlabored respirations, skin warm/dry/pink. 13:01 Reassessment: confectionery laboratory manager at bedside to draw blood. ca1 14:00 Reassessment: Patient appears in no apparent distress at this time. Patient and/or ca1 family updated on plan of care and expected duration. Pain level reassessed. Patient is alert, oriented x 3, equal unlabored respirations, skin warm/dry/pink. 15:00 Reassessment: Patient appears in no apparent distress at this time. Patient and/or ca1 family updated on plan of care and expected duration. Pain level reassessed. Patient is alert, oriented x 3, equal unlabored respirations, skin warm/dry/pink. Vital Signs: 10:43 Pulse 62; Resp 18; Temp 97.0; Pulse Ox 97% ; Weight 99.34 kg; Height 5 ft. 4 in. ll1 (162.56 cm); Pain 9/10; 10:45 BP 176 / 97; ll1 13:00 BP 173 / 85; Pulse 61; Resp 17 S; Pulse Ox 95% on R/A; ca1 14:00 BP 163 / 85; Pulse 55; Resp 18 S; Pulse Ox 95% on R/A; ca1 15:00 BP 149 / 74; Pulse 56; Resp 18 S; Pulse Ox 95% on R/A; ca1 10:43 Body Mass Index 37.59 (99.34 kg, 162.56 cm) ll1 ED Course: 10:30 Patient arrived in ED. am2 10:30 Lele Rahman DO is Private Physician. am2 10:44 Triage completed. ll1 10:45 Arm band placed on Patient placed in an exam room, on a stretcher. ll1 10:46 Justus Neil PA is PHCP. cp 10:46 Justus Kolb MD is Attending Physician. cp 10:52 Lucrecia Gallardo, ASHLEY is Primary Nurse. ca1 11:00 Patient has correct armband on for positive identification. Placed in gown. Bed in low ca1 position. Call light in reach. Side rails up X 1. Pulse ox on. NIBP on. Warm blanket given. 11:21 CT Stone Protocol In Process Unspecified. EDMS 11:40 Missed attempt(s): 22 gauge in left upper arm. Bleeding controlled, band aid applied, ca1 catheter tip intact. 12:00 Missed attempt(s): 24 gauge in left upper arm. Bleeding controlled, band aid applied, ca1 catheter tip intact. 13:28 Inserted saline lock: 24 gauge in right ,using aseptic technique. thumb. ca1 15:14 No provider procedures requiring assistance completed. IV discontinued, intact, ca1 bleeding controlled, No redness/swelling at site. Pressure dressing applied. Administered Medications: 13:30 Drug: NS 0.9% 250 ml Route: IV; Rate: bolus; Site: right hand; ca1 13:32 Drug: Zofran (Ondansetron) 4 mg Route: IVP; Site: right hand; ca1 13:34 Drug: morphine 2 mg {Note: rass 0.} Route: IVP; Site: right hand; ca1 Outcome: 15:02 Discharge ordered by . cp 15:14 Patient left the ED. rb3 15:14 Discharged to home ambulatory, with family. ca1 15:14 Condition: stable 15:14 Discharge instructions given to patient, Instructed on discharge instructions, follow up and referral plans. the need for admit, no drinking with medication, no driving heavy equipment, Demonstrated understanding of instructions, follow-up care, medications, Prescriptions given X 3. Signatures: Dispatcher [employer] EDMS Justus Neil PA PA cp Moreno, Amanda am2 Lucrecia Gallardo RN RN ca1 Yanira De Jesus RN RN ll1 Ness Landers RN RN rb3
--- NOTE | 2020-11-15 15:02 | EDPHYS ---
Physician Documentation [facility] Name: Marjan Fleming Age: 65 yrs Sex: Female : 1955 Arrival Date: 11/15/2020 Time: 10:30 Bed 14 Private MD: Lele Rahman H ED Physician Justus Kolb HPI: 11/15 11:05 This 65 yrs old Female presents to ER via Ambulatory with complaints of cp Urinary Problem - blood, Flank Pain. 11:05 The patient complains of pain in the mid back area. The pain does not radiate. Onset: cp The symptoms/episode began/occurred 3 day(s) ago. Associated signs and symptoms: Pertinent positives: dysuria, hematuria, suprapubic pain, Pertinent negatives: diarrhea, fever, pain radiating to the lower extremities, vomiting. 11:05 Severity of pain: in the emergency department the pain is unchanged despite home cp interventions. Historical: - Allergies: 10:44 Bactrim DS; ll1 10:44 butorphanol tartrate; ll1 10:44 Fentanyl; ll1 10:44 metoclopramide HCl; ll1 10:44 Reglan; ll1 10:44 Stadol; ll1 10:44 sulfamethoxazole (bulk); ll1 10:44 TRIMETHOPRIM; ll1 - PMHx: 10:44 Anxiety; COPD; Hepatitis; HIV; esophageal varices; Hypertension; Chronic pain; ll1 Migraines; Bipolar disorder; Atrial Fib; Panic Attacks; - Immunization history:: Client reports having NOT received the Covid vaccine. Flu vaccine status is unknown. - Social history:: Smoking status: Patient/guardian denies using tobacco, the patient reports quitting approximately 1 years ago. ROS: 11:10 Constitutional: Negative for body aches, chills, fever, poor PO intake. cp 11:10 Eyes: Negative for injury, pain, redness, and discharge. cp 11:10 ENT: Negative for ear pain, sore throat, difficulty swallowing, difficulty handling secretions. 11:10 Cardiovascular: Negative for chest pain. 11:10 Respiratory: Negative for cough, shortness of breath, wheezing. 11:10 Abdomen/GI: Positive for abdominal pain, of the suprapubic area, Negative for vomiting, diarrhea, constipation, black/tarry stool, rectal bleeding. 11:10 : Positive for flank pain, hematuria, burning with urination, Negative for vaginal bleeding, vaginal discharge. 11:10 Neuro: Negative for altered mental status, headache, weakness. 11:10 All other systems are negative. Exam: 11:15 Constitutional: The patient appears in no acute distress, alert, awake, cp non-diaphoretic, non-toxic, well developed, well nourished, obese. 11:15 Head/Face: Normocephalic, atraumatic. cp 11:15 Eyes: Periorbital structures: appear normal, Conjunctiva: normal, no exudate, no injection, Sclera: no appreciated abnormality, Lids and lashes: appear normal, bilaterally. 11:15 ENT: External ear(s): are unremarkable, Nose: is normal, Mouth: Lips: moist, Oral mucosa: moist, Posterior pharynx: Airway: no evidence of obstruction, patent. 11:15 Chest/axilla: Inspection: normal, Palpation: is normal, no crepitus, no tenderness. 11:15 Cardiovascular: Rate: normal, Rhythm: regular, Edema: is not appreciated, JVD: is not appreciated. 11:15 Respiratory: the patient does not display signs of respiratory distress, Respirations: normal, no use of accessory muscles, no retractions, labored breathing, is not present, Breath sounds: are clear throughout, no decreased breath sounds, no stridor, no wheezing. 11:15 Abdomen/GI: Inspection: abdomen appears normal, Bowel sounds: active, all quadrants, Palpation: soft, in all quadrants, moderate abdominal tenderness, in the suprapubic area. 11:15 Back: pain, that is moderate, of the mid back area, ROM is painful, with all movement. 11:15 Skin: no rash present. Vital Signs: 10:43 Pulse 62; Resp 18; Temp 97.0; Pulse Ox 97% ; Weight 99.34 kg; Height 5 ft. 4 in. ll1 (162.56 cm); Pain 9/10; 10:45 BP 176 / 97; ll1 13:00 BP 173 / 85; Pulse 61; Resp 17 S; Pulse Ox 95% on R/A; ca1 14:00 BP 163 / 85; Pulse 55; Resp 18 S; Pulse Ox 95% on R/A; ca1 15:00 BP 149 / 74; Pulse 56; Resp 18 S; Pulse Ox 95% on R/A; ca1 10:43 Body Mass Index 37.59 (99.34 kg, 162.56 cm) ll1 MDM: 10:47 Patient medically screened. thomas 11:00 Differential diagnosis: nephrolithiasis, pyelonephritis, UTI. cp 15:00 Data reviewed: vital signs, nurses notes, lab test result(s), radiologic studies, CT cp scan. 15:00 Counseling: I had a detailed discussion with the patient and/or guardian regarding: the cp historical points, exam findings, and any diagnostic results supporting the discharge/admit diagnosis, lab results, radiology results, to return to the emergency department if symptoms worsen or persist or if there are any questions or concerns that arise at home. ED course: VSS. Discussed results of labs and CT abdomen/pelvis that returned negative for acute findings. Patient concerned she has UTI and requests antibiotic. Will discharge to home for continued monitoring. Review of [place] prescription monitor website: narcotic score 400, sedative score 521, overdose risk score 520. 11/15 10:55 Order name: Urine Microscopic Only; Complete Time: 13:38 11/15 10:55 Order name: Basic Metabolic Panel; Complete Time: 14:36 11/15 14:36 Interpretation: Normal except: GLUC 119; BUN 32; GFR 57. 11/15 10:55 Order name: CBC with Diff; Complete Time: 13:38 11/15 13:39 Interpretation: Normal except: HGB 10.2; HCT 33.2; MCV 72.5; MCH 22.4; MCHC 30.9; RDW cp 18.2; MPV 7.3; ADE% 79.5; LYM% 12.7. 11/15 10:55 Order name: Hepatic Function; Complete Time: 14:36 11/15 14:36 Interpretation: Normal except: AST 48; GLOB 4.0; A/G 0.9. 11/15 10:55 Order name: Lipase; Complete Time: 14:36 11/15 12:23 Order name: Urine Dipstick-Ancillary; Complete Time: 13:38 EDCA 11/15 13:39 Interpretation: Normal except: UESTR Trace. 11/15 10:55 Order name: Urine Dipstick-Ancillary (obtain specimen); Complete Time: 13:01 11/15 10:55 Order name: IV Saline Lock; Complete Time: 13:37 11/15 10:55 Order name: Labs collected and sent; Complete Time: 13:01 11/15 10:55 Order name: CT Stone Protocol; Complete Time: 11:57 11/15 14:37 Interpretation: Report reviewed. cp Administered Medications: 13:30 Drug: NS 0.9% 250 ml Route: IV; Rate: bolus; Site: right hand; ca1 13:32 Drug: Zofran (Ondansetron) 4 mg Route: IVP; Site: right hand; ca1 13:34 Drug: morphine 2 mg {Note: rass 0.} Route: IVP; Site: right hand; ca1 Disposition: 21:16 Co-signature as Attending Physician, Justus Kolb MD I agree with the assessment and [facility] plan of care. Disposition: 11/15/20 15:02 Discharged to Home. Impression: Low back pain, Unspecified symptoms and signs involving the genitourinary system. - Condition is Stable. - Discharge Instructions: Back Pain, Adult, Back Exercises. - Prescriptions for Macrobid 100 mg Oral Capsule - take 1 capsule by ORAL route every 12 hours for 7 days; 14 capsule. Tylenol- Codeine #3 300-30 mg Oral Tablet - take 2 tablets by ORAL route every 8-12 hours As needed; 10 tablet. Cyclobenzaprine 10 mg Oral Tablet - take 1 tablet by ORAL route every 8 hours As needed; 20 tablet. - Medication Reconciliation Form, Thank You Letter, Antibiotic Education, Prescription Opioid Use form. - Follow up: Private Physician; When: 2 - 3 days; Reason: Recheck today's complaints. - Problem is new. - Symptoms have improved. Signatures: Dispatcher [employer] [facility] Justus Kolb MD MD cha Page, Corey, PA PA cp Lucrecia Gallardo RN RN ca1 Yanira De Jesus RN RN ll1 Ness Landers RN RN rb3 Corrections: (The following items were deleted from the chart) 15:14 15:02 11/15/2020 15:02 Discharged to Home. Impression: Low back pain; Unspecified rb3 symptoms and signs involving the genitourinary system. Condition is Stable. Forms are Medication Reconciliation Form, Thank You Letter, Antibiotic Education, Prescription Opioid Use. Follow up: Private Physician; When: 2 - 3 days; Reason: Recheck today's complaints. Problem is new. Symptoms have improved. cp
[2020-11-15 15:30] VITALS: BP 176/97
[2020-11-15 15:31] VITALS: TEMP 97; O2SAT 97
== END 2020-11-15 15:14 | disposition home or self-care (01) ==
LOC: ER 10:25
DX: R31.9 Hematuria, unspecified (principal); I10 Essential (primary) hypertension; Z21 Asymptomatic human immunodeficiency virus [HIV] infection status; Z88.1 Allergy status to other antibiotic agents; Z88.2 Allergy status to sulfonamides; Z88.8 Allergy status to other drugs, medicaments and biological substances
CPT/HCPCS: 85025; 80048; 36415; 80076; 83690; 76377; 74176; J2270; J7050; J2405; 81003; 81015; 96374; 96375; 99284

== ENCOUNTER 2020-12-06 08:32 | Emergency (ER) | payer OTHER ==
--- OUTSIDE RECORDS SUMMARY | 2020-12-06 08:37 | XMS REPORT | Continuity of Care Document ---
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 10:37:001.01[facility]annCHE[facility] TRNNK8066-65-47 10:37:14195Hmsugvxm HermannCHEM TSWSP1664-66-50 10:37:003.8[facility]annCHE[facility] XVUHQ2963-91-42 10:37:33810Chlguqfp HermannCHEM WYQTN2595-30-05 10:37:0028[facility]annCHEM ELNYD6957-95-31 10:37:009.8 [facility] MJLNG5758-17-07 10:37:0011.8[facility]annCHEM PANEL 2020-08-29 10:37:0059[facility]annCHEM XVPOA0077-36-49 10:37:002.9[facility] OtllppeYYIQOFCKGK6372-86-41 10:37:006.8[facility] FtdqvqqHJBATDXYEK0962-02-20 10:37:004.47[facility] InhozzfCPGELYOXSJ2076-60-16 10:37:0010.6[facility] Marty TYLWPWWSVW7691-15-44 10:37:0034.0[facility] QuqgmwwIWBSYQKPJN7201-58-79 10:37:00 76.1[facility] HoofbpdNAFXMSQAIE6620-76-40 10:37:00 Test Item Value Reference Range Interpretation Comments MCH (test code = MCH) 23.8 pg 27.0-31.0 [facility] AjfilqdTFIKTAMGSE8653-71-89 10:37:0031.3[facility]annHEMATOLOGY 2020-08-29 10:37:0018.2[facility] WuzlunbBAOEXDWPGZ6686-13-39 10:37:18416Lqzumixd MkzetjzUAZKSHFPHE0900-00-73 10:37:007.5[facility] MqhfkmvETHBRYSJDK5687-15-96 10:37:00 Test Item Value Reference Range Interpretation Comments PT (test code = PT) 12.8 s 12.0-14.7 [facility] IzkybzwMPIMLWZTIU6947-76-46 10:37:00 Test Item Value Reference Range Interpretation Comments INR (test code = INR) 0.97 1 0.85-1.17 [facility] GnztkfxHLQRCVTMIT4570-43-76 10:37:00 Test Item Value Reference Range Interpretation Comments PTT (test code = PTT) 25.0 s 22.9-35.8 [facility] YkdkihgFJXBQZRPIT1136-21-65 10:37:0070.5[facility]annHEMATOLOGY 2020-08-29 10:37:0018.8[facility] VdvvihuAHQUEKOYTS5907-35-87 10:37:009.5[facility] QvngzezNGGMHWOSPW4205-57-98 10:37:000.9[facility] WdbprfxZZTMCSYFRJ3944-23-08 10:37:000.3[facility] BrdvhywCMKDDQYNFD8833-00-07 10:37:004.8[facility] EZNHQXWORI4120-67-37 10:37:001.3[facility] MuizxedZUBAAMHPQM3623-82-15 10:37:000.6 [facility] OlnjfhbAILZFCNLPG4458-76-32 10:37:000.1[facility]annHEMATOLOGY 2020-08-29 10:37:001+ *ABN*(08/29/20 5:37 AM)[facility] UcopyleFQRNMUQBPW8660-98-11 10:37:00Not Detected (08/29/20 5:37 AM)[facility] G[facility] 2020-08-27 18:14:39Hm Interface, Radiology Results [...] rate, with complete emptying by 4 hours. [facility]-[id number] MethodistMiscellaneous referral pqof6709-88-13 15:24:58 Test Item Value Reference Range Interpretation Comments Misc test HIV-1 RNA QUAL PCR name (test code = 2566) Misc test see note Human Immunodef iciency result (test Virus 1 (HIV-1) by code = 1730) Qualitative [employer] Worker-M ediated Amplification ( TMA) ARUP test code 7521070 HIV-1 by Qualit ative TMA See Note SOURCE/SPECIMEN PLASMA HIV-1 RNA, QUAL ITATIVE TMA HIV-1 RNA, QL TMA T DOCUMENT DESIGN SPECIALIST Test Not Performed. Initial testing necessi tated a repeat, but the re was insufficient sa mple to perform repeat. SAMPLE LEFT FOR REPEAT IS 50 uL. NEED 1000 u L TO RUN REPEAT. This te st was performed using the APTIMA(R) HIV-R NA Qualitative Ass ay (Gen-Probe). ======== ======== Te st performed by:[employer] [place] [id number] KYLE (test HIVQL - HIV-1 RNA, code = KYLE) Qualitative TMA (FROZEN)ARUP Test Code: 5695743Lhtmsk: plasma Derrick JeanUs duplex venous upper ivgtawshl7601-97-87 22:57:00Interface, Radiology Results In - 04/30/2020 10:58 PM CST Vascular Ultrasound Laboratory Upper Extremity Venous Report [id number] [place] [address] Pat.Name: LIO WATTS Pat.ID: [id number] St.Date: 04/30/2020 Refer.MD: ELISEO ARCE MD Exam Time: 5:04:00PM Study Type:UE Venous Age: 9 1955,65Y Sex: FEMALE Sonogrphr: IBIS Espinosa, SANKET Pat. Stat.:Inpatient Room:[place] [address] 2020 Tape Vol: JM, CPT - 4: 36437 Echo Event ID:[id number] Order ID: [id number] Reason for Study:Arm swelling or pain, DVT [...] veins.*Preliminary result reported to ASHLEY Santos @ 6571 on 04/30/20.PHYSICIAN INTERPRETATION Venous examination of the both upper extremities and neck demonstratedno evidence of deep venous thrombosis. Total superficial vein thrombosis of the right basilic vein. FINDINGS : Signed 04/30/2020 10:57 PMFrancis Cabral MD, [facility] MethodistXR Chest 2 Hl7249-37-11 16:21:01Hm Interface, Radiology Results Incoming - 04/30/2020 [...] active disease of the chest.1D2RAD_PS01[place] MethodistMidline Unsuccessful Anqhdvn5825-04-30 11:14:34ANicole zhang RN 04/30/2020 11:25 AMMidame Unsuccessful [...] lower arm .[facility] MethodistXR Abdomen 1 Vw Portable 2020-04-30 10:20:14Hm Interface, Radiology Results Incoming - 04/30/2020 10:23 AM CST EXAMINATION: XR ABDOMEN 1 VW PORTABLECLINICAL HISTORY: Abdominal pain post opCOMPARISON: No priorIMPRESSION:1.Residual barium within the colon throughout. No small bowel obstruction noted.[facility]-[id number] UxvdyabfnHfiidi8212-69-06 14:57:57RaCarlee mulligan MD 04/28/2020 2:59 PMAirwayPerformed by: Carlee Malloy MDAuthorized by: Carlee Malloy MD Location: ORUrgency: ElectiveDifficult Airway: No Anesthesiologist: Kvng Malloy, MDResident/TANDEM MILL OPERATOR/AA: Allan Morocho, DOPerformed by: resident/TANDEM MILL OPERATOR/AAPreoxygenated azjt960% O2: Yes C- spine Precautions Maintained Throughout: [...] No Number of Attempts at Approach: 1 [place] MethodistTransthoracic Echocardiogram Complete, (w Contrast, Strain and 3D if needed)2020-04-27 18:20:00Interface, Radiology Results In - 04/27/2020 6:21 PM CST Echocardiography Report [id number]Name: LIO WATTS.ID: [id number] St.Date: 04/27/2020 Refer.MD: ELISEO ARCE MD Exam Time: 2:21:00 PM Study Type:Routine Echo Height: 64in Weight: 213lb BSA: 2.01 m2 Age: 9 1955,65Y Sex: FEMALE BP: 128/89 HR: 102 bpm Sonogrphr: SANKET [facility]. Stat.:Inpatient Room: [facility] Study Status:Final Echo Event ID:[id number] Order ID: [id number] Reason for Study:Atrial FibrillationHistory / Clinical:Hypertension Procedures: [...] PA systolic pressure.- MEASUREMENTS: ---- 2DParasternal Long [place] Ao An 2.2 cm LVPWd 1 cm [...] CI 3.1 l/m/m2 Signed 04/27/2020 06:20 PMMohamBobby GarciaARS-CoV-2 (COVID-19) RNA [Presence] in Respiratory specimen by FRANCISCA with probe [id number] 21:42:14 Test Item Value Reference Range Interpretation Comments SARS-CoV-2 (COVID-19) RNA Not detected Not-Detected [Presence] in Respiratory specimen by FRANCISCA with probe detection (test code = 17842-6) [place] Esophagram Double [id number] 12:07:12Hm Interface, Radiology Results Incoming - 04/25/2020 12:10 PM CST EXAMINATION: FL [...] hernia. There was mild spontaneous marco roesophageal reflux.[id number] MethodistCT Chest Wo Contrast Abdomen Wo Contrast Pelvis Wo Gprigbtr0308-18-24 09:23:55Hm Interface, Radiology Results 04/21/2020 9:27 AM [...] aorta.4.Additional chronic and incidental findings as detailed above.[facility]-[id number] and approved by supply chain vice president/fellow: Jenna Valenzuela M.D.I, Medhat Flowers Jr., M.D., [...] (qualifier Not Detected N value) URINALYSIS WITH [id number] 10:57:00 Test Item Value Reference Range Interpretation Comments Color (test code = UCOLR) Dk. Yellow Clarity (test code = UCLAR) Hazy Glucose (test code = UGLUC) NEGATIVE NEGATIVE N Bilirubin (test code = UBILI) NEGATIVE NEGATIVE N Ketones (test code = UKET) NEGATIVE NEGATIVE N Specific Wheeler (test code = 1.025 1.005-1.030 A USPGR) [...]
[2020-12-06 10:46] LABS: Absolute Lymphocytes (CBC) 0.9 K/uL (0.7-4.9); Basophils % 0.6 % (0-1.3); Hematocrit 33.2 % (36.0-45.0); Lymphocytes % 15.2 % (15.3-44.8); MPV 7.4 fL (7.6-11.3); RBC Red Blood Cell Count 4.58 M/uL (3.86-4.86)
--- NOTE | 2020-12-06 10:58 | RAD REPORT ---
EXAM DESCRIPTION: CT - Abdomen Pelvis Wo Contrast - 12/06/2020 10:44 am CLINICAL HISTORY: Abdominal pain. ABD PAIN COMPARISON: Stone Protocol dated 11/15/2020; Abdomen Pelvis W Contrast dated 07/25/2020; Abdomen Pe lvis W Contrast dated 05/26/2020; Abdomen Pelvis W Contrast dated 04/19/2020 TECHNIQUE: CT imaging of the abdomen and pelvis was performed without contrast. Solid organ, bowel a nd vascular assessment is limited due to lack of IV and oral contrast. All CT scans are performed using dose optimization technique as appropriate and may include automated exposure control or mA/KV adjustment according to patient size. FINDINGS: The lower lung patel are clear.Cardiomegaly. Coronary artery calcifications. Miniscule too small to characterize liver lesion in the hepatic dome is almost certainly benign. No a drenal lesions. The spleen is within normal limits. The pancreas is within normal limits. Bilateral l ow-density renal lesions which are consistent with cysts. Nonobstructing 3 millimeter stone in the ri ght kidney.Cholecystectomy. No bowel obstruction, free air, free fluid or abscess. The osseous structures are within normal limits. IMPRESSION: No acute intra-abdominal or pelvic findings. A limited non-contrast examination was performed as detailed.
[2020-12-06] MEDS ORDERED: ONDANSETRON 4 MG (ODT) TAB ONE (11:28)
--- NOTE | 2020-12-06 11:28 | EDPHYS ---
Physician Documentation [facility] Name: Marjan Fleming Age: 65 yrs Sex: Female : 1955 Arrival Date: 12/06/2020 Time: 08:36 Bed 7 Private MD: Lele Rahman H ED Physician Ramon Baker HPI: 12/06 09:34 This 65 yrs old Female presents to ER via Ambulatory with complaints of rn Abdominal Pain. 09:34 The patient presents with abdominal pain that is diffuse. Onset: The symptoms/episode rn began/occurred 2 week(s) ago. The symptoms do not radiate. Associated signs and symptoms: Pertinent positives: diarrhea, nausea, Pertinent negatives: blood in stools, fever. The symptoms are described as achy, crampy. Modifying factors: The symptoms are alleviated by nothing, the symptoms are aggravated by touching the area. Severity of pain: At its worst the pain was mild in the emergency department the pain is unchanged. The patient has experienced similar episodes in the past. The patient has not recently seen a physician. Reports 2 weeks of abd pain, all over, assoc with nausea, no vomiting, + diarrhea, no blood. Reports similar to previous episodes of abd pain and problems. . Historical: - Allergies: 08:39 Bactrim DS; ll1 08:39 butorphanol tartrate; ll1 08:39 Fentanyl; ll1 08:39 metoclopramide HCl; ll1 08:39 Reglan; ll1 08:39 Stadol; ll1 08:39 sulfamethoxazole (bulk); ll1 08:39 TRIMETHOPRIM; ll1 - PMHx: 08:39 esophageal varices; Hepatitis; HIV; Chronic pain; Bipolar disorder; Hypertension; ll1 Atrial Fib; COPD; Anxiety; Migraines; Panic Attacks; - PSHx: 08:39 hernia repair; ll1 - Immunization history:: Client reports receiving the 2nd dose of the Covid vaccine, Flu vaccine is up to date. - Social history:: Smoking status: Patient denies any tobacco usage or history of. - Family history:: not pertinent. - Hospitalizations: : No recent hospitalization is reported. ROS: 09:50 Constitutional: Negative for fever, chills, and weight loss, Eyes: Negative for injury, rn pain, redness, and discharge, Neck: Negative for injury, pain, and swelling, Cardiovascular: Negative for chest pain, palpitations, and edema, Respiratory: Negative for shortness of breath, cough, wheezing, and pleuritic chest pain, Abdomen/GI: Negative for vomiting, and constipation, Back: Negative for injury and pain, : Negative for injury, bleeding, discharge, and swelling, MS/Extremity: Negative for injury and deformity, Skin: Negative for injury, rash, and discoloration, Neuro: Negative for headache, weakness, numbness, tingling, and seizure. Exam: 09:50 Constitutional: This is a well developed, well nourished patient who is awake, alert, rn and in no acute distress. Head/Face: Normocephalic, atraumatic. Eyes: Periorbital areas with no swelling, redness, or edema. Cardiovascular: Regular rate and rhythm. No pulse deficits. Respiratory: No increased work of breathing, no retractions or nasal flaring. Abdomen/GI: Soft, mild tenderness all 4 quadrants, no peritoneal signs Skin: Warm, dry MS/ Extremity: Pulses equal, no cyanosis. Neuro: Awake and alert, GCS 15 Vital Signs: 08:40 BP 139 / 84; Pulse 74; Resp 16; Temp 98.2; Pulse Ox 96% ; Weight 97.98 kg; Height 5 ft. ll1 4 in. (162.56 cm); Pain 9/10; 08:40 Body Mass Index 37.08 (97.98 kg, 162.56 cm) ll1 MDM: 09:03 Patient medically screened. rn 11:24 Differential diagnosis: diverticulitis, gastritis, gastroesophageal reflux disease, rn non-specific abd pain, pancreatitis, Peptic Ulcer Disease, Pyelonephritis, Ureterolithiasis, urinary tract infection. Data reviewed: vital signs, nurses notes, lab test result(s), radiologic studies, CT scan, and as a result, I will continue to observe the patient. Counseling: I had a detailed discussion with the patient and/or guardian regarding: the historical points, exam findings, and any diagnostic results supporting the discharge/admit diagnosis, radiology results. Response to treatment: the patient's symptoms have mildly improved after treatment. 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 Return precautions understood. . 12/06 09:13 Order name: Basic Metabolic Panel rn 12/06 09:13 Order name: CBC with Diff; Complete Time: 11:06 rn 12/06 09:13 Order name: Hepatic Function rn 12/06 09:13 Order name: Lipase rn 12/06 10:24 Order name: CT Abd/Pelvis - Without Contrast; Complete Time: 11:06 rn 12/06 09:13 Order name: Labs collected and sent; Complete Time: 10:18 rn Administered Medications: 11:10 Drug: Zofran (Ondansetron) 4 mg Route: PO; tw2 11:27 Follow up: Response: No adverse reaction; Nausea is decreased tw2 11:27 Not Given (no iv accesss): NS 0.9% 500 ml IV at bolus once tw2 11:27 Not Given (no iv accesss): Zofran (Ondansetron) 4 mg IVP once; over 2 minutes tw2 Disposition Summary: 12/06/20 11:27 Left Against Medical Advice Location: Home rn Problem: new rn Symptoms: have improved rn Condition: Stable rn Diagnosis - Abdominal pain, unspecified rn Followup: rn - With: Lele Rahman DO - When: As needed - Reason: Recheck today's complaints, Re-evaluation by your physician Discharge Instructions: - Discharge Summary Sheet rn - Abdominal Pain, Adult rn - Diarrhea, Adult rn Prescriptions: - ondansetron 4 mg Oral tablet,disintegrating - place 1 tablet by TRANSLINGUAL route every 8 hours As needed; 20 tablet; rn Refills: 0, Product Selection Permitted Signatures: Dispatcher [employer] EDMS Ramon Baker MD MD rn Wise, Tara, RN RN tw2 Yanira De Jesus RN RN ll1 Corrections: (The following items were deleted from the chart) 09:53 09:50 Constitutional: This is a well developed, well nourished patient who is awake, rn alert, and in no acute distress. Head/Face: Normocephalic, atraumatic. Eyes: Periorbital areas with no swelling, redness, or edema. Cardiovascular: Regular rate and rhythm with a normal S1 and S2. No gallops, murmurs, or rubs. Normal PMI, no JVD. No pulse deficits. Respiratory: Lungs have equal breath sounds bilaterally, clear to auscultation and percussion. No rales, rhonchi or wheezes noted. No increased work of breathing, no retractions or nasal flaring. Abdomen/GI: Soft, mild tenderness all 4 quadrants, no peritoneal signs Skin: Warm, dry MS/ Extremity: Pulses equal, no cyanosis. Neuro: Awake and alert, GCS 15 rn 10:33 09:14 Abdomen Pelvis W Con+CT.RAD.BRZ ordered. EDMS EDMS
--- NOTE | 2020-12-06 11:28 | ER ---
Nurse's Notes [facility] Name: Marjan Fleming Age: 65 yrs Sex: Female : 1955 Arrival Date: 12/06/2020 Time: 08:36 Bed 7 Private MD: Lele Rahman H Diagnosis: Abdominal pain, unspecified Presentation: 12/06 08:40 Chief complaint: Patient states: Upper abd pain with nausea and diarrhea for 2 weeks. ll1 No fever. Coronavirus screen: Client denies travel out of the [place] in the last 14 days. At this time, the client does not indicate any symptoms associated with coronavirus-19. Ebola Screen: Patient denies travel to an Ebola-affected area in the 21 days before illness onset. Initial Sepsis Screen: Does the patient meet any 2 criteria? No. Patient's initial sepsis screen is negative. Does the patient have a suspected source of infection? Yes: Acute abdominal pain. Risk Assessment: Do you want to hurt yourself or someone else? Patient reports no desire to harm self or others. Onset of symptoms was November 22, 2020. 08:40 Method Of Arrival: Ambulatory ll1 08:40 Acuity: BLAYNE 3 ll1 Triage Assessment: 08:40 General: Appears in no apparent distress. Behavior is calm, cooperative, appropriate ll1 for age. Pain: Complains of pain in abdomen Quality of pain is described as aching. Neuro: No deficits noted. Cardiovascular: No deficits noted. Respiratory: No deficits noted. GI: Abdomen is flat, Bowel sounds present X 4 quads. Abd is soft and non tender X 4 quads. Reports upper abdominal pain, diarrhea, nausea. Historical: - Allergies: 08:39 Bactrim DS; ll1 08:39 butorphanol tartrate; ll1 08:39 Fentanyl; ll1 08:39 metoclopramide HCl; ll1 08:39 Reglan; ll1 08:39 Stadol; ll1 08:39 sulfamethoxazole (bulk); ll1 08:39 TRIMETHOPRIM; ll1 - PMHx: 08:39 esophageal varices; Hepatitis; HIV; Chronic pain; Bipolar disorder; Hypertension; ll1 Atrial Fib; COPD; Anxiety; Migraines; Panic Attacks; - PSHx: 08:39 hernia repair; ll1 - Immunization history:: Client reports receiving the 2nd dose of the Covid vaccine, Flu vaccine is up to date. - Social history:: Smoking status: Patient denies any tobacco usage or history of. - Family history:: not pertinent. - Hospitalizations: : No recent hospitalization is reported. Screenin:07 Abuse screen: Denies threats or abuse. Nutritional screening: No deficits noted. tw2 Tuberculosis screening: No symptoms or risk factors identified. Fall Risk None identified. Assessment: 09:07 Reassessment: provider at bedside at this time. tw2 10:37 Reassessment: Dr. Baker notified that we are unable to obtain IV access. CT changed to ss without IV contrast. Vital Signs: 08:40 BP 139 / 84; Pulse 74; Resp 16; Temp 98.2; Pulse Ox 96% ; Weight 97.98 kg; Height 5 ft. ll1 4 in. (162.56 cm); Pain 9/10; 08:40 Body Mass Index 37.08 (97.98 kg, 162.56 cm) ll1 ED Course: 08:36 Patient arrived in ED. mr 08:36 Lele Rahman DO is Private Physician. mr 08:39 Arm band placed on. ll1 08:42 Triage completed. ll1 09:03 Ramon Bakre MD is Attending Physician. rn 09:05 Placed in gown. Bed in low position. Call light in reach. Pulse ox on. NIBP on. tw2 09:07 Karen Tovar RN is Primary Nurse. tw2 09:50 Missed attempt(s): 22 gauge in right forearm. Bleeding controlled, band aid applied, em1 catheter tip intact. 09:53 Missed attempt(s): 22 gauge in left antecubital area. by [employer] notified charge tw2 nurse ASHLEY Flores of need for IV at this time.. 10:18 Missed attempt(s): 24 gauge in left hand. blood collected. Missed attempt(s): 22 gauge tw2 in right forearm. Bleeding controlled, band aid applied, catheter tip intact. 10:44 CT Abd/Pelvis - Without Contrast In Process Unspecified. EDMS 11:27 Lele Rahman DO is Referral Physician. rn Administered Medications: 11:10 Drug: Zofran (Ondansetron) 4 mg Route: PO; tw2 11:27 Follow up: Response: No adverse reaction; Nausea is decreased tw2 : Not Given (no iv accesss): NS 0.9% 500 ml IV at bolus once tw2 Not Given (no iv accesss): Zofran (Ondansetron) 4 mg IVP once; over 2 minutes tw2 Outcome: : Patient left the ED. tw2 : AMA AMA form signed tw Signatures: Dispatcher [employer] Jessie Lozano Roman, MD MD rn Twan Simons em1 Sandra Cadet RN RN ss Karen Tovar RN RN tw2 Yanira De Jesus RN RN 1 Corrections: (The following items were deleted from the chart) 10:13 10:12 Missed attempt(s): em1 em1
[2020-12-06 11:32] LABS: Albumin 3.4 g/dL (3.4-5.0); Bilirubin Direct 0.1 mg/dL (0-0.2); Bilirubin Total 0.4 mg/dL (0.2-1.0); Potassium 3.8 mmol/L (3.5-5.1); Protein, Total 7.3 g/dL (6.4-8.2)
[2020-12-06 11:34] VITALS: BP 139/84; TEMP 98.2; O2SAT 96
== END 2020-12-06 11:27 | disposition left against medical advice (07) ==
LOC: ER 08:32
DX: R10.9 Unspecified abdominal pain (principal); I10 Essential (primary) hypertension; Z21 Asymptomatic human immunodeficiency virus [HIV] infection status; Z88.1 Allergy status to other antibiotic agents; Z88.2 Allergy status to sulfonamides; Z88.8 Allergy status to other drugs, medicaments and biological substances
CPT/HCPCS: 36415; 74176; 80048; 80076; 83690; 85025; 99283

== ENCOUNTER 2020-12-16 09:10 | Emergency (ER) | payer OTHER ==
--- OUTSIDE RECORDS SUMMARY | 2020-12-16 09:14 | XMS REPORT | Continuity of Care Document ---
:1955 Author Organization [facility] t Address [address] [place] [address] Care Team Providers Name Role Phone HEMATPOUR Attending Clinician Unavailable YAZMIN Attending Clinician Unavailable [facility] Attending Clinician Unavailable Marika Bal Attending Clinician Ronald DHILLON Attending Clinician MD TOMY FLORES Attending Clinician Unavailable SANDRA Attending Clinician Unavailable Ap Attending Clinician TREMAYNE Attending Clinician Unavailable MD YAZMIN Attending Clinician Unavailable ZUNILDA Attending Clinician Unavailable DO SYL Attending Clinician Unavailable YAZMIN Admitting Clinician Unavailable MD TOMY FLORES Admitting Clinician Unavailable MD YAZMIN Admitting Clinician Unavailable DO SYL Admitting Clinician Unavailable Payers Payer Name Policy Type Policy Number Effective Date Expiration Date S gabino [facility] [id number] 2012 [employer] 00:00:00 Problems Condition Condition Condition Status Onset Resolution Last Treating Co mments Source Name Details Category Date Date Treatment Clinician Date CCL / EPS Diagnosis Active 2020-10-15 Memoria PVI 3-30 17:07:00 l ABLATION CCL / 00:00: Marty W/ CARTO / EPS PVI 00 GA / T ABLATION W/ CARTO / GA / T Active 08/19/2020 [facility] Allergies, Adverse Reactions, Alerts Allergy Allergy Status Severity Reaction(s) Onset Inactive Treating Comm ents Source Name Type Date Date Clinician Stadol Stadol Active Get Ferguson Bactrim Bactrim Active Memeduardo Ferguson fentaNYL fentaNYL Active Memori a mabel Ferguson Social History Smoking Status Start Date Stop Date Source Social History 2020-08-29 10:43:53 2020-08-29 10:43:53 [facility] [place] Medications Ordered Filled Start Stop Current Ordering Indication Dosage Frequency Signature Comments Components Source Medication Medication Date Date Medication? Clinician (SIG) Name Name Amlodipine No Notes: Memor ia 4-10 (Same as: l 14:00: Norvasc) emtricitabi No Notes: Caesar lisa ne 200 MG / 4-10 (Same as: l tenofovir 14:00: Descovy) Herm alafenamide 00 Non-formul 25 MG Oral nancy Tablet [Descovy] Sertraline No Notes: Memor ia 4-10 (Same as: l 14:00: Zoloft) pantoprazol No Notes: Caesar lisa e 4-10 Tablet l 14:00: should not Marty 00 be chewed or crushed. (Same as: Protonix) Amiodarone No Notes: Memor ia 4-10 (Same as: l 14:00: Cordarone) Sucralfate No Notes: May M emoria 4-10 interfere l 02:00: w/enteral Marty 00 feeds - Take 1 hr before or 2 hr after antacids, dairy pdt, meals & minerals - On empty stomach. For patients unable to swallow tablet, dissolve in 10mL - 30mL of water or juice and stir before giving. (Same As: Carafate) Saline No Notes: Memoria Flush 0.9% 4-10 (Same as: l 02:00: BD Marty Posiflush) Eliquis No Notes: Memoria 4-10 Same [...] # 3) Buspirone No Notes: Memori a - (Same As: l 22:00: BuSpar) Lisinopril No 40 mg, 1 Mem oria 4-09 tab, l 22:00: Route: PO, Marty 00 Drug form: TAB, BID, Dosing Weight 97.273, kg, Start date: 08/29/20 17:00:00 CDT, Duration: 30 day, Stop date: 09/28/20 9:00:00 CDT metoprolol No 100 mg, 1 Me moria tartrate - tab, l 22:00: Route: PO, [place] 00 Drug form: TAB, BID, Dosing Weight [...] 9:00:00 CDT, 0 Morphine No Notes: Memoria - (Same l 17:07: as:MORPhin e Sulfate) buPROPion No 150 mg, 1 Mem oria 24 hour 4-09 tab, l extended 16:00: Route: PO, Her mitchell release 00 Drug form: ERTAB, Q24H, Dosing Weight 97.273, kg, Start date: 08/29/20 11:00:00 CDT, Duration: 30 day, Stop date: 09/27/20 11:00:00 CDT, 0 glycopyrrol 0 No Route: IV, Memoria ate (ANES) 08-29 Drug form: l 15:40: INJ, ONCE, Stop date: 08/29/20 10:40:00 CDT neostigmine No Route: IV, Memoria (ANES) 08-29 Drug form: l 15:40: INJ, ONCE, Stop date: 08/29/20 10:40:00 CDT protamine No Route: IV, Me moria (ANES) 08-29 Drug form: l 15:40: INJ, ONCE, Stop date: 08/29/20 10:40:00 CDT fentaNYL 2020-0 No Route: IV, Mem oria (ANES) 08-29 Drug form: l 15:40: INJ, ONCE, Stop date: 08/29/20 10:40:00 CDT pantoprazol 0 Yes 40 mg = 1 M emoria e 40 mg 4-09 tab, PO, l oral 15:27: Daily, # [place] [facility] 00 30 tab, 0 coated Refill(s), tablet Pharmacy: [facility] [id number], 162.56, cm, 08/29/20 5:30:00 CDT, Height, 97.273, kg, 08/29/20 5:30:00 CDT, Weight pantoprazol 0 No 40 mg = 1 M emoria e 40 mg 4-09 tab, PO, l oral 15:26: Daily, # [place] [facility] 00 30 tab, 0 coated Refill(s) tablet sucralfate 0 Yes 1 gm = 1 Mem oria 1 g oral 4-09 tab, PO, l tablet 15:26: Q12H, # 28 Skylar nn 00 tab, 0 Refill(s), Pharmacy: [facility], 162.56, cm, 08/29/20 5:30:00 CDT, [...] Memori a 08-29 Route: l 14:01: IVP, [place] 00 Q5Min, Dosing Weight 97.273, kg, PRN [...] oria ne 08-29 Route: l 14:01: IVP, [place] 00 Q5Min, Dosing Weight 97.273, kg, PRN Pain Score 7-10, Start date: 08/29/20 9:01:00 CDT, Duration: 4 doses or times, Stop date: Limited # of times Flumazenil 0 No 0.2 mg, Caesar lisa 08-29 Route: l 14:01: IVP, PRN, [place] 00 Dosing Weight 97.273, kg, PRN Benzodiaze [...] l 10 13:15: INJ, Start Marty microgram date: 08/29/20 8:15:00 CDT, Stop date: 08/29/20 9:15:00 CDT Sodium No Route: IV, Memor ia Chloride 08-29 Total l 0.9% IV 12:30: Volume: Marty (MAGDIEL) 1000 00 1,000, mL Start date: 08/29/20 7:30:00 CDT, Stop date: 08/29/20 8:30:00 CDT busPIRone Yes 30 mg = 1 Mem oria 30 mg oral 08-29 tab, PO, l tablet 11:43: BID, # 60 Patel n 00 tab, 0 Refill(s) 24 HR Yes 150 mg = 1 Memori a Bupropion - tab, PO, l Hydrochlori 11:42: Q24H, # 30 Marty de 150 MG 00 tab, 0 Extended Refill(s) Release Tablet apixaban 5 Yes 5 mg, PO, Me moria MG Oral 409 Q12H, tab, l Tablet 11:41: 0 Marty [...] date: 09/28/20 5:29:00 CDT, 2.13, m2, 0 Vital Signs Vital Name Observation Time Observation Value Comments Source Respitory Rate 2020-08-30 13:00:00 Memori al [place] Systolic (mm Hg) 2020-08-30 13:00:00 Caesar rial [place] Diastolic (mm Hg) 2020-08-30 13:00:00 Mem orial [place] Systolic (mm Hg) 2020-08-30 11:00:00 Caesar rial [place] Diastolic (mm Hg) 2020-08-30 11:00:00 Mem orial [place] Temperature Oral (F) 2020-08-30 11:00:00 98.4 F [facility] [place] Respitory Rate 2020-08-30 11:00:00 Memori al [place] Respitory Rate 2020-08-30 10:00:00 Memori al [place] Systolic (mm Hg) 2020-08-30 10:00:00 Caesar rial [place] Diastolic (mm Hg) 2020-08-30 10:00:00 Mem orial [place] Temperature Oral (F) 2020-08-30 00:00:00 96.9 F [facility] [place] Temperature Oral (F) 2020-08-29 11:26:00 97.6 F [facility] Marty Height 2020-08-29 10:30:00 162.56 cm [facility] [place] Weight 2020-08-29 10:30:00 [facility] [place] BMI Calculated 2020-08-29 10:30:00 Memori al Marty Procedures This patient has no known procedures. Encounters Start End Encounter Admission Attending Care Care Encounter Source Date/Time Date/Time Type Type Clinicians Facility Department ID 2020-12-12 [facility] [id number] [place] 08:16:46 [facility] 2020-12-12 Out[facility] [id number] [place] 07:42:11 [facility] 2020-10-31 Outpatient [facility] [id number] [place] 09:44:50 CHRIS Laird 2020-10-31 Outpatient [facility] [id number] [place] 07:54:08 CHRIS Laird 2020-09-30 Outpatient [facility] [id number] [place] 13:16:03 CHRIS Laird 2020-12-12 2020-12-12 Office Hematpour, [facility] [id number] 07:42:02 08:18:50 Visit Chris RUIZ [id number] 2020-12-08 2020-12-08 Outpatient CHIHARA, [facility] [id number] [place] 00:00:00 00:00:00 RAY [address] 2020-12-08 2020-12-08 Outpatient CHIHARA, [facility] [id number] [place] 00:00:00 00:00:00 RAY [address] 2020-12-08 2020-12-08 Outpatient CHIHARA, [facility] [id number] [place] 00:00:00 00:00:00 RAY 127 [address] [facility] 2020-12-02 2020-12-[address] 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 [id number] [facility] [id number] MATERNAL [id number] & CHILD [address] [place] [address] 2020-11-25 2020-11-25 [facility] [id number] 00:00:00 00:00:00 [facility] [id number] [facility] [id number] 2020-11-25 2020-11-25 Telephone Devin [facility] [id number] 00:00:00 00:00:00 Robbi Hairston 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 [id number] [facility] [id number] MATERNAL [id number] & CHILD [address] [place] [address] 2020-10-06 2020-10-06 Outpatient CHIMATAA, [facility] [id number] [place] 00:00:00 00:00:00 RAY [address] 2020-09-06 2020-09-06 Outpatient CHIHARA, [facility] [id number] [place] 00:00:00 00:00:00 RAY 437 [address] i 2020-09-06 2020-09-06 Outpatient [facility] [id number] [place] 00:00:00 00:00:[address] 2020-09-05 2020-09-05 [facility] [id number] [place] 00:00:00 00:00:00 RAY 901 [address] i 2020-09-01 2020-09-01 Outpatient SANDRA, MIN [facility] [id number] [place] 00:00:00 00:00:[address] 2020-09-01 2020-09-01 Outpatient CHIHARA, [facility] [id number] [place] 00:00:00 00:00:00 RAY [address] 2020-08-29 2020-08-30 Outpatient Hematpour, [facility] [id number] 05:20:00 09:10:00 Khashayar 2020-08-29 2020-08-29 Outpatient [facility] CAR 7500 [facility] 05:20:00 05:20:00 2020-08-29 2020-08-29 Outpatient Hematpour, [facility] [id number] 05:20:00 05:20:00 Khashayar 2020-08-27 2020-08-27 [facility] [id number] [place] 00:00:00 00:00:00 RAY [address] 2020-08-21 2020-08-21 Outpatient CHIHARA, [facility] [id number] [place] 00:00:00 00:00:00 RAY [address] 2020-08-13 2020-08-13 Outpatient YAZMIN [facility] [id number] [place] 00:00:00 00:00:00 RAY [address] 2020-07-28 2020-07-28 Outpatient YAZMIN [facility] [id number] [place] 00:00:00 00:00:00 RAY [address] 2020-07-23 2020-07-23 Outpatient TREMAYEN, [facility] [id number] [place] 00:00:00 00:00:[address] 2020-07-02 2020-07-02 Outpatient [facility] [id number] [place] 00:00:00 00:00:[address] 2020-06-23 2020-06-23 Outpatient YAZMIN [facility] [id number] [place] 00:00:00 00:00:00 RAY [address] 2020-04-25 2020-05-03 Inpatient YAZMIN [facility] [id number] [place] 00:00:00 00:00:00 RAY [address] 2020-04-25 2020-04-25 Outpatient YAZMIN [facility] [id number] [place] 00:00:00 00:00:00 RAY [address] 2020-04-25 2020-04-25 Outpatient YAZMIN [facility] [id number] [place] 00:00:00 00:00:00 RAY [address] 2020-04-21 2020-04-21 Emergency TU, YEN[facility] [id number] [place] 00:00:00 00:00:[address] Results Test Description Test Time Test Comments Results Result Comments Source SARS-CoV-2 (COVID-19) RNA [Presence] in Respiratory sp ecimen by 2020-09-01 17:48:30 FRANCISCA with probe detection Test Item Value Reference Range Interpretation Comme nts SARS-CoV-2 (COVID-19) RNA [Presence] in Respiratory Not detected No t-Detected specimen by FRANCISCA with probe detection (test code = 16863-6) [id number] 16:31:00 Test Item Value Reference Range Interpretation Comments POC Activated Clotting Time (test code 153 s = POC Activated Clotting Time) [facility] 14:37:00 Test Item Value Reference Range Interpretation Comments POC Activated Clotting Time (test code 454 s = POC Activated Clotting Time) [facility]cqgqhnFORSUJOPWU2233-74-65 14:13:00 Test Item Value Reference Range Interpretation Comments POC Activated Clotting Time (test code 354 s = POC Activated Clotting Time) [facility] BANK [id number] 10:37:00Negative (08/29/20 5:37 AM) [facility] HermannCHEM [id number] 10:37:12664Emboywvu HermannCHEM PANEL 2020-08-29 10:37:0028[facility] HermannCHEM XQGSJ8441-40-77 10:37:001.01[facility] HermannCHEM YQNFZ3761-57-01 10:37:80759Vkrbhcbm HermannCHEM ZVSDY6535-47-41 10:37:003.8[facility] HermannCHEM HPEQE9351-19-52 10:37:17397Rygphcnl HermannCHEM MAQUV6479-88-39 10:37:0028[facility] HermannCHEM MPQIC3273-28-80 10:37:009.8 [facility] HermannCHEM CVCDF5175-79-74 10:37:0011.8[facility] HermannCHEM PANEL 2020-08-29 10:37:0059[facility] HermannCHEM BMPJI2886-81-53 10:37:002.9[facility] GsedklsPNJWMWSMPL6005-65-97 10:37:006.8[facility] AqphzrqWWTWZXGRDW4755-64-76 10:37:004.47[facility] GdqktpkARHTHYMDFS3706-69-25 10:37:0010.6[facility] [place] CBGAPQUHFG8421-77-69 10:37:0034.0[facility] YltlqsdQYGYELMXOM5605-28-37 10:37:00 76.1[facility] FewupzeESAQAKTLNE1881-20-17 10:37:00 Test Item Value Reference Range Interpretation Comments MCH (test code = MCH) 23.8 pg 27.0-31.0 [facility] XenkctoDYQAUUBFDX6343-85-24 10:37:0031.3[facility] HermannHEMATOLOGY 2020-08-29 10:37:0018.2[facility] KojjlggZNGEFZHYWA8456-50-49 10:37:27528Pzwriryv QppgaqiEAUSHPDAPI2274-29-42 10:37:007.5[facility] IgosircBFDUFSWEXE1130-73-61 10:37:00 Test Item Value Reference Range Interpretation Comments PT (test code = PT) 12.8 s 12.0-14.7 Memorial JsfkvkgXPAOCAGBKK3967-29-65 10:37:00 Test Item Value Reference Range Interpretation Comments INR (test code = INR) 0.97 1 0.85-1.17 Memorial VqsjtesDTLPMZQPZK9540-95-60 10:37:00 Test Item Value Reference Range Interpretation Comments PTT (test code = PTT) 25.0 s 22.9-35.8 [facility] PyudijlWTSJIJPDLN1211-29-47 10:37:0070.5[facility] HermannHEMATOLOGY 2020-08-29 10:37:0018.8[facility] NkhkiljSYJSXGFTVH0405-06-81 10:37:009.5[facility] ZqjdslnJYPCRVAVDR6388-19-23 10:37:000.9[facility] JfrciqnPFBDTTGNZI3915-72-93 10:37:000.3[facility] DnqsfpzFPLQHWGLCY9146-05-23 10:37:004.8[facility] [place] FLYNBLCLTI0102-39-67 10:37:001.3[facility] PrhihdpVTXTTJMNAK3623-61-27 10:37:000.6 Memorial BovlsopMHRDRRRASZ2418-23-68 10:37:000.1[facility] HermannHEMATOLOGY 2020-08-29 10:37:001+ *ABN*(08/29/20 5:37 AM)[facility] YbreqyrJBIKFKYUVU0612-92-55 10:37:00Not Detected (08/29/20 5:37 AM)[facility] CqwvjoqJAAN-SnA-3 (COVID-19) RNA [Presence] in Respiratory specimen by FRANCISCA with probe [id number] 21:42:14 Test Item Value Reference Range Interpretation Comments SARS-CoV-2 (COVID-19) RNA Not detected Not-Detected [Presence] in Respiratory specimen by FRANCISCA with probe detection (test code = 72360-9) CHLAMYDIA, GC, TV,PCR, IN [id number] 15:38:00 Test Item Value Reference Range Interpretation Comments FT (test code = CHTR) Not detected (qualifier Not Detected N value) FT (test code = Not detected (qualifier Not Detected N NGONO) value) FT (test code = TRVG) Not detected (qualifier Not Detected N value) URINALYSIS WITH [id number] 10:57:00 Test Item Value Reference Range Interpretation Comments Color (test code = UCOLR) Dk. Yellow Clarity (test code = UCLAR) Hazy Glucose (test code = UGLUC) NEGATIVE NEGATIVE N Bilirubin (test code = UBILI) NEGATIVE NEGATIVE N Ketones (test code = UKET) NEGATIVE NEGATIVE N Specific [place] (test code = 1.025 1.005-1.030 A USPGR) [...]
--- NOTE | 2020-12-16 10:20 | RAD REPORT ---
EXAM DESCRIPTION: RAD - Chest Single View - 12/16/2020 10:09 am CLINICAL HISTORY: SOB COMPARISON: Portable September 29 TECHNIQUE: AP portable chest image was obtained 12/16/2020 10:09 am . FINDINGS: Lung volumes are low. No peripheral mass or consolidation. No significant failure or volum e overload. Heart and vasculature are normal. No measurable pleural effusion and no pneumothorax. No acute bony abnormality seen. No acute aortic findings suspected. IMPRESSION: No acute cardiopulmonary process. No significant change from comparison.
[2020-12-16] MEDS ORDERED: ALBUTEROL 2.5 MG/3 ML NEB SOL ONE (10:26)
[2020-12-16] MEDS ORDERED: predniSONE 20 MG TAB ONE (10:26)
[2020-12-16] MEDS ORDERED: IPRATROPIUM BROM 0.5MG/2.5ML ONE (10:26)
--- NOTE | 2020-12-16 18:03 | EDPHYS ---
Physician Documentation [facility] Name: Marjan Fleming Age: 65 yrs Sex: Female : 1955 Arrival Date: 12/16/2020 Time: 09:11 Bed 5 Private MD: Lele Rahman H ED Physician Ramon Baker HPI: 12/16 10:00 This 65 yrs old Female presents to ER via Ambulatory with complaints of cp Shortness Of Breath. 10:00 The patient has shortness of breath at rest. Onset: The symptoms/episode began/occurred cp last night. Duration: The symptoms are continuous, and are steadily getting worse. Associated signs and symptoms: Pertinent negatives: chest pain, productive cough, diaphoresis, fever, vomiting. Severity of symptoms: in the emergency department the symptoms are unchanged despite home interventions. Historical: - Allergies: 09:25 Bactrim DS; ss 09:25 butorphanol tartrate; ss 09:25 Fentanyl; ss 09:25 metoclopramide HCl; ss 09:25 Reglan; ss 09:25 Stadol; ss 09:25 sulfamethoxazole (bulk); ss 09:25 TRIMETHOPRIM; ss - Home Meds: 09:25 amiodarone 200 mg Oral tab 1 tab once daily [Active]; BuSpar Oral [Active]; Descovy ss Oral [Active]; Eliquis 5 mg Oral tab 1 tab 2 times per day [Active]; Hydralazine Oral [Active]; lisinopril Oral [Active]; Metformin Oral [Active]; Metoprolol Tartrate Oral [Active]; Norvasc Oral [Active]; raltegravir Oral [Active]; sertraline Oral [Active]; - PMHx: 09:25 Anxiety; Chronic pain; Bipolar disorder; Atrial Fib; COPD; esophageal varices; ss Hepatitis; HIV; Hypertension; Migraines; Panic Attacks; - PSHx: 09:25 hernia repair; ss - Immunization history:: Adult Immunizations up to date. - Social history:: Smoking status: Patient/guardian denies using tobacco. ROS: 10:04 Eyes: Negative for injury, pain, redness, and discharge. cp 10:04 Constitutional: Negative for body aches, chills, fever, poor PO intake. 10:04 ENT: Negative for ear pain, sore throat, difficulty swallowing, difficulty handling secretions. 10:04 Cardiovascular: Negative for chest pain, edema, palpitations. 10:04 Respiratory: Positive for cough, shortness of breath, at rest. wheezing. 10:04 Abdomen/GI: Negative for abdominal pain, vomiting, diarrhea, constipation. 10:04 Back: Negative for radiated pain. 10:04 Neuro: Negative for altered mental status, headache, syncope, weakness. 10:04 All other systems are negative. Exam: 10:05 Head/Face: Normocephalic, atraumatic. cp 10:05 Constitutional: The patient appears in no acute distress, alert, awake, non-diaphoretic, non-toxic, well developed, well nourished. 10:05 Eyes: Periorbital structures: appear normal, Conjunctiva: normal, no exudate, no injection, Sclera: no appreciated abnormality, Lids and lashes: appear normal, bilaterally. 10:05 ENT: External ear(s): are unremarkable, Nose: is normal, Mouth: Lips: moist, Oral mucosa: moist, Posterior pharynx: Airway: no evidence of obstruction, patent. 10:05 Chest/axilla: Inspection: normal, Palpation: is normal, no crepitus, no tenderness. 10:05 Cardiovascular: Rate: normal, Edema: is not appreciated, JVD: is not appreciated. 10:05 Respiratory: the patient does not display signs of respiratory distress, Respirations: labored breathing, that is mild, intercostal retractions, are absent, shallow respirations, are not present, Breath sounds: decreased breath sounds, that are mild, diffuse, stridor, is not appreciated, wheezing: that is mild, is heard diffusely. 10:05 Abdomen/GI: Exam negative for discomfort, distension, guarding, Inspection: abdomen appears normal. 10:05 Back: pain, is absent, ROM is normal. Vital Signs: 09:24 BP 153 / 85; Pulse 65; Resp 20; Temp 97.5(TE); Pulse Ox 98% on R/A; Weight 97.98 kg; ss Height 5 ft. 4 in. (162.56 cm); Pain 0/10; 10:54 BP 156 / 76; Pulse 59; Resp 20; Pulse Ox 95% on R/A; ph 09:24 Body Mass Index 37.08 (97.98 kg, 162.56 cm) ss MDM: 09:51 Patient medically screened. cp 11:07 Data reviewed: vital signs, nurses notes, radiologic studies, plain films. Test cp interpretation: by ED physician or midlevel provider: plain radiologic studies. Counseling: I had a detailed discussion with the patient and/or guardian regarding: the historical points, exam findings, and any diagnostic results supporting the discharge/admit diagnosis, radiology results, to return to the emergency department if symptoms worsen or persist or if there are any questions or concerns that arise at home. Response to treatment: the patient's symptoms have markedly improved after treatment, and as a result, I will discharge patient. ED course: Vital signs stable. Patient resting comfortably in exam room. Patient reports symptoms markedly improved. Oxygen sats 95% on room air. No signs of respiratory distress. Will discharge to home for continue monitor. 12/16 09:52 Order name: XRAY Chest (1 view); Complete Time: 10:29 cp 12/16 10:29 Interpretation: Report reviewed. cp Administered Medications: 10:11 Drug: Albuterol - atroVENT (ipratropium) (3:1) (2.5 mg - 0.5 mg) 3 ml Route: Nebulizer; ph 11:37 Follow up: Response: No adverse reaction ph 10:11 Drug: predniSONE 60 mg Route: PO; ph 11:37 Follow up: Response: No adverse reaction ph Disposition: 16:50 Co-signature as Attending Physician, Ramon Baker MD. rn Disposition Summary: 12/16/20 11:11 Discharge Ordered Location: Home cp Problem: an acute exacerbation cp Symptoms: have improved cp Condition: Stable cp Diagnosis - COPD/ Chronic obstructive pulmonary disease with (acute) exacerbation cp Followup: cp - With: Private Physician - When: 2 - 3 days - Reason: Recheck today's complaints Discharge Instructions: - Discharge Summary Sheet cp - Chronic Obstructive Pulmonary Disease Exacerbation cp Forms: - Medication Reconciliation Form cp - Thank You Letter cp - Antibiotic Education cp - Prescription Opioid Use cp Prescriptions: - Albuterol Sulfate 2.5 mg /3 mL (0.083 %) Inhalation Solution for Nebulization - inhale 1 unit by NEBULIZATION route every 8 hours As needed; 1 box; Refills: 0, cp Product Selection Permitted - Prednisone 20 mg Oral Tablet - take 2 tablets by ORAL route once daily for 5 days; 10 tablet; Refills: 0, cp Product Selection Permitted Signatures: Dispatcher [employer] Ramon Linton MD MD rn Smirch, Shelby, RN RN ss Solange Bennett RN RN Justus Gill, ALEJO DHILLON cp
--- NOTE | 2020-12-16 18:03 | ER ---
Nurse's Notes [facility] Name: Marjan Fleming Age: 65 yrs Sex: Female : 1955 Arrival Date: 12/16/2020 Time: 09:11 Bed 5 Private MD: Lele Rahman H Diagnosis: COPD/ Chronic obstructive pulmonary disease with (acute) exacerbation Presentation: 12/16 09:24 Chief complaint: Patient states: SOB that began last night. Pt feels as if it is an ss exacerbation of her COPD. Denies fever/ cough. Coronavirus screen: Client denies travel out of the [place] in the last 14 days. Ebola Screen: Patient denies exposure to infectious person. Patient denies travel to an Ebola-affected area in the 21 days before illness onset. Initial Sepsis Screen: Does the patient meet any 2 criteria? No. Patient's initial sepsis screen is negative. Does the patient have a suspected source of infection? No. Patient's initial sepsis screen is negative. Risk Assessment: Do you want to hurt yourself or someone else? Patient reports no desire to harm self or others. Onset of symptoms was December 15, 2020. 09:24 Method Of Arrival: Ambulatory ss 09:24 Acuity: BLAYNE 3 ss Historical: - Allergies: 09:25 Bactrim DS; ss 09:25 butorphanol tartrate; ss 09:25 Fentanyl; ss 09:25 metoclopramide HCl; ss 09:25 Reglan; ss 09:25 Stadol; ss 09:25 sulfamethoxazole (bulk); ss 09:25 TRIMETHOPRIM; ss - Home Meds: 09:25 amiodarone 200 mg Oral tab 1 tab once daily [Active]; BuSpar Oral [Active]; Descovy ss Oral [Active]; Eliquis 5 mg Oral tab 1 tab 2 times per day [Active]; Hydralazine Oral [Active]; lisinopril Oral [Active]; Metformin Oral [Active]; Metoprolol Tartrate Oral [Active]; Norvasc Oral [Active]; raltegravir Oral [Active]; sertraline Oral [Active]; - PMHx: 09:25 Anxiety; Chronic pain; Bipolar disorder; Atrial Fib; COPD; esophageal varices; ss Hepatitis; HIV; Hypertension; Migraines; Panic Attacks; - PSHx: 09:25 hernia repair; ss - Immunization history:: Adult Immunizations up to date. - Social history:: Smoking status: Patient/guardian denies using tobacco. Screenin:47 Abuse screen: Denies threats or abuse. Denies injuries from another. Nutritional ph screening: No deficits noted. Tuberculosis screening: No symptoms or risk factors identified. Fall Risk None identified. Assessment: 10:11 General: Appears in no apparent distress. comfortable, Behavior is calm, cooperative, ph appropriate for age, Denies fever, feeling ill. Pain: Denies pain. Neuro: Level of Consciousness is awake, alert, obeys commands, Oriented to person, place, time, situation. Cardiovascular: Reports shortness of breath, Capillary refill < 3 seconds in bilateral fingers Patient's skin is warm and dry. Respiratory: Reports shortness of breath at rest Airway is patent Respiratory effort is even, labored, Respiratory pattern is regular, Breath sounds with wheezes bilaterally. GI: No signs and/or symptoms were reported involving the gastrointestinal system. Derm: Skin is intact, is healthy with good turgor, Skin is pink, warm \T\ dry. 10:54 Reassessment: Patient appears in no apparent distress at this time. Patient and/or ph family updated on plan of care and expected duration. Pain level reassessed. Patient is alert, oriented x 3, equal unlabored respirations, skin warm/dry/pink. Vital Signs: 09:24 BP 153 / 85; Pulse 65; Resp 20; Temp 97.5(TE); Pulse Ox 98% on R/A; Weight 97.98 kg; ss Height 5 ft. 4 in. (162.56 cm); Pain 0/10; 10:54 BP 156 / 76; Pulse 59; Resp 20; Pulse Ox 95% on R/A; ph 09:24 Body Mass Index 37.08 (97.98 kg, 162.56 cm) ED Course: 09:11 Patient arrived in ED. as 09:11 Lele Rahman DO is Private Physician. as 09:25 Triage completed. ss 09:25 Arm band placed on right wrist. ss 09:45 Justus Neil PA is PHCP. cp 09:45 Ramon Baker MD is Attending Physician. cp 09:47 Bennett, Solange, RN is Primary Nurse. ph 09:47 Patient has correct armband on for positive identification. Bed in low position. Call ph light in reach. Side rails up X 1. Pulse ox on. NIBP on. 10:08 XRAY Chest (1 view) In Process Unspecified. EDMS 11:37 No provider procedures requiring assistance completed. Patient did not have IV access ph during this emergency room visit. Administered Medications: 10:11 Drug: Albuterol - atroVENT (ipratropium) (3:1) (2.5 mg - 0.5 mg) 3 ml Route: Nebulizer; ph 11:37 Follow up: Response: No adverse reaction ph 10:11 Drug: predniSONE 60 mg Route: PO; ph 11:37 Follow up: Response: No adverse reaction ph Outcome: 11:11 Discharge ordered by MD. cp 11:30 Patient left the ED. iw 11:30 Discharged to home ambulatory. ph 11:30 Condition: good 11:30 Discharge instructions given to patient, Instructed on discharge instructions, follow up and referral plans. medication usage, Demonstrated understanding of instructions, follow-up care, medications, Prescriptions given X 2. Signatures: Dispatcher [employer] Radha Cárdenas Irene, RN RN Sandra Cadet RN RN Solange Bennett RN RN Justus Neil, ALEJO DHILLON cp
[2020-12-17 20:42] VITALS: TEMP 97.5
[2020-12-17 20:43] VITALS: BP 156/76; O2SAT 95
== END 2020-12-16 11:30 | disposition home or self-care (01) ==
LOC: ER 09:10
DX: J44.1 Chronic obstructive pulmonary disease with (acute) exacerbation (principal); G89.29 Other chronic pain; F31.9 Bipolar disorder, unspecified; I48.91 Unspecified atrial fibrillation; I10 Essential (primary) hypertension; F41.0 Panic disorder [episodic paroxysmal anxiety]
CPT/HCPCS: 71045; J7512

== ENCOUNTER 2021-01-28 10:56 | Emergency (ER) | payer OTHER ==
--- OUTSIDE RECORDS SUMMARY | 2021-01-28 11:05 | XMS REPORT | Continuity of Care Document ---
:1955 Author Organization [facility] t Address [address] [place] [address] Care Team Providers Name Role Phone Rahman Primary Care Physician HEMATPOUR Attending Clinician Unavailable Prabhu SANCHEZ Attending Clinician Unavailable Shelia JENKINS, Kristen Attending Clinician Tiny SALGUERO Attending Clinician Lab, Fam Pob I Attending Clinician Unavailable Doctor Unassigned, Name Attending Clinician Unavailable Devin SALGUERO, R Attending Clinician Carol Ann IZQUIERDO, M. Attending Clinician Yazmin JENKINS Attending Clinician [facility] Attending Clinician Unavailable Ronald DHILLON Attending Clinician Clark SANCHEZ Attending Clinician Unavailable Diana SANCHEZ Attending Clinician Unavailable Tomy Mitchell MD Attending Clinician Remigio JENKINS V. Attending Clinician MD TOMY MITCHELL Attending Clinician [...] Number Effective Date Expiration Date Christian lloyd [facility] [id number] 2012 STAR PLUS 00:00:00 Problems Condition Condition Condition Status Onset Resolution Last Treating Co mments Source Name Details Category Date Date Treatment Clinician Date Gastropare Gastropare Disease Active Overview : Methodi sis sis 4-[address] 00:00: g of this Hosp[facility] 00 note l might be different from the original. Added automatic ally from request for surgery [id number] Dysphagia Dysphagia Disease Active Overview: Methodi 4-[address] 00:00: g of this Hospita 00 note l might be different from the original. Added automatic ally from request for surgery [id number] CCL / EPS Diagnosis Active 2020-10-15 Memoria PVI 3-30 17:07:00 l ABLATION CCL / 00:00: [place] W/ CARTO / EPS PVI 00 GA / T ABLATION W/ CARTO / GA / T Active 08/19/2020 [facility] Food Food Disease Active 2019-05 Methodi intoleranc intoleranc 2-04 st e in adult e in adult 00:00: Ho spita 00 l S/p S/p Disease Active Methodi reverse reverse 5-30 st 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:00: Hospita shoulder shoulder 00 l arthroplas arthroplas ty ty Unstable Unstable Disease Active Metho di reverse reverse 3-31 st 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:00: Hospita shoulder shoulder 00 l arthroplas arthroplas ty ty Obesity Obesity Disease Active 2015-05 Univers (BMI (BMI 2-19 ity of 30-39.9) 30-39.9) 00:00: [place] [facility] Anemia Anemia Disease Active 2014-05 Univers 0-03 ity of 00:00: [place] [facility] Hypovolemi Hypovolemi Disease Active 2014-05 U nivers a due to a due to 0-02 ity of hemorrhage hemorrhage 00:00: [place] [facility] Chest pain Chest pain Disease Active 2014-05 U nivers 0-02 ity of 00:00: [place] [facility] 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:00: [place] shoulder shoulder 00 Medica l arthroplas arthroplas Br anch ty ty Posttrauma Posttrauma Disease Active U nivers tic stress tic stress 09-27 it y of disorder disorder 00:00: [place] [facility] 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 00:00: [place] virus virus 00 Medical (HIV) (HIV) Branch disease disease Bipolar 2 Bipolar 2 Disease Active Uni vers disorder disorder 11-18 ity of 00:00: Medical Branch Chronic Chronic Disease Active Univers hepatitis hepatitis 11-18 ity of C C 00:00: [place] [facility] Hypertensi Hypertensi Disease Active U nivers on on 11-18 ity of 00:00: [place] [facility] Allergies, Adverse Reactions, Alerts Allergy Allergy Status Severity Reaction(s) Onset Inactive Treating Comm ents Source Name Type Date Date Clinician Butorpha Drug Active Unknown - Unive rs nol Allergy See comments 11-25 ity of 00:00: Medical Branch Fentanyl Propensi Active Other (See Unknown M ethodi ty to Comments) 4-[address] adverse 00:00: Hospita reaction 00 l s to drug Sulfamet Propensi Active Other (See 2019-05 Stomach M ethodi hoxazole ty to Comments) 2-[address] -Trimeth adverse 00:00: Hospita oprim reaction 00 l s to drug Butorpha Propensi Active Hallucinatio 2019-05 Methodi nol ty to ns 2-04 st adverse 00:00: Hospita reaction 00 l s to drug Fentanyl Drug Active Other - See Unknown Un matt Allergy comments 208 reaction ity o f 00:00: [place] 00 Medical Branch Trimetho Propensi Active Hives Univer s prim ty to 2-08 ity of adverse 00:00: [place] reaction 00 Medical s Branch Metoclop Propensi Active Method i ramide ty to 5-04 st Hcl adverse 00:00: Hospita reaction 00 l s to drug Metoclop Propensi Active Unknown - Uni vers ramide ty to See comments 1-06 ity of adverse 00:00: [place] reaction 00 Medical s Branch Sulfamet Propensi Active Other - See 2015-05 Stomach Univers hoxazole ty to comments 2 pain ity of adverse 00:00: [place] reaction 00 Medical s Branch Sulfamet Propensi Active Rash 2015-05 Method i hoxazole ty to 2-02 st adverse 00:00: Hospita reaction 00 l s to drug Metoclop Propensi Active Anxiety Unive rs ramide ty to 9-25 ity of Hcl adverse 00:00: [place] reaction 00 Medical s Branch Butorpha Propensi Active Hallucinatio Univers nol ty to ns 2-14 ity of Tartrate adverse 00:00: [place] reaction 00 Medical s to Branch drug Stadol Stadol Active Memoria l [place] Bactrim Bactrim Active Memoria l [place] fentaNYL fentaNYL Active Memori a l [place] Family History Family Member Diagnosis Comments Start Date Stop Date Source Father Diabetes [facility] - see comments [facility] Father [facility] Disease [facility] Mother Cancer [facility] Natural father Hypertension [facility] Natural father Kidney disease Method ist [facility] Natural mother [facility] Social History Social Habit Start Date Stop Date Quantity Comments Source Exposure to Not sure [facility] SARS-CoV-2 (event) [facility] Cigarettes smoked 2020-12-08 2020-12-[address] current (pack per 00:00:00 00:00:00 Hospita l day) - Reported Cigarette 2020-12-08 2020-12-08 [facility] pack-years 00:00:00 00:00:00 Hospital Tobacco use and 2020-12-08 2020-12-08 Never used [facility] exposure 00:00:00 00:00:00 Hospital Alcohol intake 2020-12-08 2020-12-08 Current drinker [facility] 00:00:00 00:00:00 of [facility] (finding) Alcohol Comment 2016-09-23 2016-09-23 rare [facility] 00:00:00 00:00:00 Hospital Tobacco Comment 2015-02-14 2015-02-14 Smokes approx 1-2 Un iversity of 00:00:00 00:00:00 cigarettes per [place] [facility] porfirio day when she Branch smokes History of tobacco 2011-09-29 User of smokeless University of use 00:00:00 tobacco [facility] Sex Ass[birth year] At [birth year] Universit y of 00:00:00 00:00:00 [facility] Smoking Status Start Date Stop Date Source Former smoker 2020-12-08 00:00:00 2020-12-08 00:00:00 [facility] Medications Ordered Filled Start Stop Current Ordering Indication Dosage Frequency Signature Comments Components Source Medication Medication Date Date Medication? Clinician (SIG) Name Name buPROPion Yes [id number] 150mg Take 1 U nivers XL 9-08 tablet by ity of (WELLBUTRIN 00:00: mouth [place] XL) 150 mg 00 daily. Medical 24 hr Branch tablet SERTraline Yes [id number] 200mg Take 2 Univers 100 mg 9-08 tablets by ity of tablet 00:00: mouth [place] 00 daily. Medical Branch busPIRone Yes [id number] 30mg Take 1 Un matt 30 mg 8-30 tablet by ity of tablet 00:00: mouth 2 00 (two) Medical times Branch daily. LORazepam 2 Yes [id number] 2mg Take 1 Univers mg tablet 8-30 tablet by ity o f 00:00: mouth 2 00 (two) Medical times Branch daily as needed (anxiety). lisinopril Yes 40mg Q.5D Take 40 mg M ethodi (PRINIVIL,Z 7-[address] ESTRIL) 40 15:51: (two) Hospit a mg tablet 25 times a l day. metoprolol 0 Yes 100mg Q.5D Take 100 Me thodi tartrate 7-[address] (LOPRESSOR) 15:51: mouth 2 Hos mayo 100 mg 25 (two) l tablet times a day. amLODIPine Yes 10mg QD Take 10 mg M ethodi (NORVASC) 7-[address] 10 mg 15:51: daily. Hospita tablet 25 l LORAZepam Yes 2mg QD Take 2 mg Met hodi (ATIVAN) 2 7-[address] MG tablet 15:51: nightly as Ho spita 25 needed for l anxiety. sertraline Yes 200mg QD Take 200 Me thodi (ZOLOFT) 7-[address] 100 MG 15:51: mouth Hospita tablet 25 daily. l clobetasol Yes 1{appli Q.5D Apply 1 M ethodi (TEMOVATE) 7-19 cation} applicatio st 0.05 % 15:51: n Hospita ointment 25 topically l 2 (two) times a day. (affected area in groin) hydrALAZINE Yes 50mg Q.[id number] Take 50 mg Methodi (APRESOLINE 7-19 [id number] by mouth 3 st ) 50 MG 15:51: 3D (three) Hospita tablet 25 times a l day. busPIRone Yes 20mg QD Take 20 mg Me thodi (BUSPAR) 10 7-[address] MG tablet 15:51: nightly. Hosp soren 25 l acetaminoph Yes 1000mg Q.5D Take 1,000 Methodi en 7-[address] (TYLENOL) 15:51: mouth 2 Hospi ta 500 MG 25 (two) l tablet times a day as needed for headaches. albuterol Yes 1{puff} Q4H Inhale 1 M ethodi sulfate 90 7-[address] mcg/actuati 15:51: 4 (four) Ho spita on aero 25 hours as l powdr needed breath act (shortness w/sensor of breath or wheezing). buPROPion Yes 150mg QD Take 150 Met hodi (WELLBUTRIN 7-[address] ) 100 MG 15:51: mouth Hospita tablet 25 daily. l esomeprazol Yes 20mg QD Take 20 mg Methodi e (NexIUM) 7-[address] 20 MG 15:51: daily Hospita capsule 25 before l breakfast. amIODarone Yes 200mg QD Take 200 Me thodi (PACERONE) 7-[address] 200 MG 15:51: mouth Hospita tablet 25 daily. l nystatin-tr Yes [id number] Apply to [facility] iamcinolone 11-25 area(s) 3 ity of cream 00:00: (three) [place] 00 times Medical daily. Branch emtricitabi Yes [id number] Take one [facility] ne-tenofovi 11-25 po daily ity of r alafen 00:00: [place] (DESCOVY) 00 Medical tablet Branch budesonide- 2020- No 1{puff} QD Inhale 1 Methodi formoteroL 25 06-[address] (SYMBICORT) 19:37: 00:00 morning. H ospita 160-4.5 02 :00 l mcg/actuati on inhaler raltegravir Yes [id number] 400mg Take 1 Univers (ISENTRESS) 6-11 tablet by ity of 400 mg 00:00: mouth 2 [place] tablet 00 (two) Medical times Branch daily. LORazepam 2 2020- No [id number] 2mg Take 1 Univers mg tablet 10-31 08-30 tablet by ity of 00:00: 00:00 mouth 2 [place] 00 :00 (two) Medical times Branch daily as needed (anxiety). buPROPion 2020- No [id number] 150mg Take 1 Univers XL - 09-08 tablet by ity of (WELLBUTRIN 00:00: 00:00 [place] XL) 150 mg 00 :00 daily. Medical 24 hr Branch tablet SERTraline 2020- No [id number] 200mg Take 2 Univers 100 mg 10-22 09-08 tablets by ity of tablet 00:00: 00:00 mouth [place] 00 :00 daily. Medical Branch busPIRone 2020- No [id number] 30mg Take 1 U nivers 30 mg 10-22 08-30 tablet by ity of tablet 00:00: 00:00 mouth 2 [place] 00 :00 (two) Medical times Branch daily. nystatin 2020- No [id number] Q.25D Take 5 mL Methodi (MYCOSTATIN 5-17 06- (500,000 st ) 100,000 00:00: 04:59 Units Hospit a unit/mL 00 :00 total) by l suspension mouth 4 (four) times a day for 14 days. Swish in mouth sucralfate 2020- No 1g Q.25D Take 10 mL Methodi (Carafate) 10-06 05-28 ([address] 100 mg/mL 00:00: 04:59 total) by Ho spita suspension 00 :00 mouth 4 l (four) times a day for 10 days. pantoprazol 2020- No 40mg Q.5D Take 2 Met hodi e 16 05-[address] (Protonix) 00:00: 04:59 (40 mg Hosp soren 20 MG EC 00 :00 total) by l tablet mouth 2 (two) times a day for 30 days. esomeprazol No 40mg Q.5D Take 40 mg Methodi e (NexIUM) 09-01-[address] 40 MG 13:54: 00:00 (two) Hospita capsule 18 :00 times a l day. LORAZepam 2020- No 2mg QD Take 2 mg Me thodi (ATIVAN) 2 09-01-[address] MG tablet 13:51: 00:00 every Hospit a 15 :00 morning. l busPIRone 2020- No 20mg QD Take 20 mg M ethodi (BUSPAR) 10 12 -[address] MG tablet 13:50: 00:00 every Hospit a 39 :00 morning. l Amlodipine No Notes: Memor ia 4-10 (Same as: l 14:00: Norvasc) [place] 00 emtricitabi No Notes: Caesar lisa ne 200 MG / 4-10 (Same as: l tenofovir 14:00: Descovy) Herm ariel alafenamide 00 Non-formul 25 MG Oral nancy Tablet [Descovy] pantoprazol No Notes: Caesar lisa e 4-10 Tablet l 14:00: should not Marty 00 be chewed or crushed. (Same as: Protonix) Amiodarone No Notes: Memor ia 4-10 (Same as: l 14:00: Cordarone) Marty Amlodipine No Notes: Memor ia 4-10 (Same as: l 14:00: Norvasc) [place] emtricitabi No Notes: Caesar lisa ne 200 MG / 4-10 (Same as: l tenofovir 14:00: Descovy) Herm ariel alafenamide 00 Non-formul 25 MG Oral nancy Tablet [Descovy] Sertraline No Notes: Memor ia 4-10 (Same as: l 14:00: Zoloft) [place] Sertraline No Notes: Memor ia 4-10 (Same as: l 14:00: Zoloft) [place] 00 pantoprazol No Notes: Caesar lisa e 4-10 Tablet l 14:00: should not Marty 00 be chewed or crushed. (Same as: Protonix) Amiodarone No Notes: Memor ia 4-10 (Same as: l 14:00: Cordarone) [place] Amlodipine No Notes: Memor ia 4-10 (Same as: l 14:00: Norvasc) [place] emtricitabi No Notes: Caesar lisa ne 200 MG / 4-10 (Same as: l tenofovir 14:00: Descovy) Herm ariel alafenamide 00 Non-formul 25 MG Oral nancy Tablet [Descovy] Sertraline No Notes: Memor ia 4-10 (Same as: l 14:00: Zoloft) [place] 00 pantoprazol No Notes: [place] lisa e 4-10 Tablet l 14:00: should not [place] 00 be chewed or crushed. (Same as: Protonix) Amiodarone No Notes: Memor ia 4-10 (Same as: l 14:00: Cordarone) [place] 00 Amlodipine No Notes: Memor ia 4-10 (Same [...] M emoria 4-10 interfere l 02:00: w/enteral [place] feeds - Take 1 hr before or [...] May interfere w/enteral feedings Take With Food Sucralfate No Notes: May M emoria 4-10 interfere l 02:00: w/enteral [place] 00 feeds - Take 1 hr before or 2 hr after antacids, dairy pdt, meals & minerals - On empty stomach. For patients unable to swallow tablet, dissolve in 10mL - 30mL of water or juice and stir before giving. (Same As: Carafate) Saline No Notes: Memoria Flush 0.9% 4-10 (Same as: l 02:00: BD [place] Posiflush) Eliquis No Notes: Memoria 4-10 Same as: l 02:00: Eliquis [place] Hydralazine No Notes: Caesar lisa Hydrochlori 4-10 (Same as: l de 50 MG 02:00: Apresoline Her mitchell Oral Tablet 00 ) May interfere w/enteral feedings Take With Food Sucralfate No Notes: May M emoria 4-10 interfere l 02:00: w/enteral [place] 00 feeds - Take 1 hr before or 2 hr after antacids, dairy pdt, meals & minerals - On empty stomach. For patients unable to swallow tablet, dissolve in 10mL - 30mL of water or juice and stir before giving. (Same As: Carafate) Saline No Notes: Memoria Flush 0.9% 4-10 (Same as: l 02:00: BD [place] Posiflush) Eliquis No Notes: Memoria 4-10 Same as: l 02:00: Eliquis [place] 00 Hydralazine No Notes: Caesar lisa Hydrochlori 4-10 (Same as: l de 50 MG 02:00: Apresoline Her mitchell Oral Tablet 00 ) May interfere w/enteral feedings Take With Food Sucralfate No Notes: May M emoria 4-10 [...] Memoria 4-10 Same as: l 02:00: Eliquis [place] Hydralazine No Notes: Caesar lisa Hydrochlori 4-10 (Same as: l de 50 MG 02:00: Apresoline Her mitchell Oral Tablet 00 ) May interfere w/enteral feedings Take With Food acetaminoph No Notes: Do M emoria en-codeine 4-10 not exceed l #3 00:12: 4gm/day of Marty acetaminop hen. (Same as: Tylenol with Codeine # 3) acetaminoph No Notes: Do M emoria en-codeine 4-10 not exceed l #3 00:12: 4gm/day of [place] 00 acetaminop hen. (Same as: Tylenol with Codeine # 3) acetaminoph No Notes: Do M emoria en-codeine 4-10 not exceed l #3 00:12: 4gm/day of [place] 00 acetaminop hen. (Same as: Tylenol with Codeine # 3) acetaminoph No Notes: Do M emoria en-codeine 4-10 not exceed l #3 00:12: 4gm/day of [place] 00 acetaminop hen. (Same as: Tylenol with Codeine # 3) Buspirone No Notes: Memori a 4-09 (Same As: l 22:00: BuSpar) Lisinopril No 40 mg, 1 Mem oria 4-09 tab, l 22:00: Route: PO, [place] Drug form: TAB, BID, Dosing Weight 97.273, kg, Start date: 08/29/20 17:00:00 CDT, Duration: 30 day, Stop date: 09/28/20 9:00:00 CDT metoprolol No 100 mg, 1 Me moria tartrate 4-09 tab, l 22:00: Route: PO, [place] Drug form: TAB, BID, Dosing Weight 97.273, kg, Start date: 08/29/20 17:00:00 CDT, Duration: 30 day, Stop date: 09/28/20 9:00:00 CDT Raltegravir No 400 mg, 1 M emoria 400 MG Oral 4-09 tab, l Tablet 22:00: Route: PO, Skylar nn [ISENTRESS] Drug form: TAB, BID, Dosing Weight 97.273, kg, Start date: 08/29/20 17:00:00 CDT, Duration: 30 day, Stop date: 09/28/20 9:00:00 CDT, 0 Buspirone 2020-0 No Notes: Memori a 08-29 (Same As: l 22:00: BuSpar) Lisinopril 2020-0 No 40 mg, 1 Mem oria 4-09 tab, l 22:00: Route: PO, [place] Drug form: TAB, BID, Dosing Weight 97.273, kg, Start date: 08/29/20 17:00:00 CDT, Duration: 30 day, Stop date: 09/28/20 9:00:00 CDT metoprolol 1-0 No 100 mg, 1 Me moria tartrate -09 tab, l 22:00: Route: PO, Marty 00 Drug form: TAB, BID, Dosing Weight 97.273, kg, Start date: 08/29/20 17:00:00 CDT, Duration: 30 day, Stop date: 09/28/20 9:00:00 CDT Buspirone 2020-0 No Notes: Memori a 08-29 (Same As: l 22:00: BuSpar) Raltegravir 2020-0 No 400 mg, 1 M emoria 400 MG Oral 4- tab, l Tablet 22:00: Route: PO, Skylar nn [ISENTRE] 00 Drug form: TAB, BID, Dosing Weight 97.273, kg, Start date: 08/29/20 17:00:00 CDT, Duration: 30 day, Stop date: 09/28/20 9:00:00 CDT, 0 Lisinopril 2020-0 No 40 mg, 1 Mem oria -09 tab, l 22:00: Route: PO, [place] Drug form: TAB, BID, Dosing Weight 97.273, kg, Start date: 08/29/20 17:00:00 CDT, Duration: 30 day, Stop date: 09/28/20 9:00:00 CDT metoprolol 2021-0 No 100 mg, 1 Me moria tartrate 4-09 tab, l 22:00: Route: PO, Marty Drug form: TAB, BID, Dosing Weight 97.273, kg, Start date: 08/29/20 17:00:00 CDT, Duration: 30 day, Stop date: 09/28/20 9:00:00 CDT Raltegravir 2020-0 No 400 mg, 1 M emoria 400 MG Oral 4-09 tab, l Tablet 22:00: Route: PO, Skylar nn [ISENTRESS] 00 Drug form: TAB, BID, Dosing Weight 97.273, kg, Start date: 08/29/20 17:00:00 CDT, Duration: 30 day, Stop date: 09/28/20 9:00:00 CDT, 0 Buspirone 2020-0 No Notes: Memori a 4- (Same As: l 22:00: BuSpar) Lisinopril 0 No 40 mg, 1 Mem oria 4-09 tab, l 22:00: Route: PO, Marty Drug form: TAB, BID, Dosing Weight 97.273, kg, Start date: 08/29/20 17:00:00 CDT, Duration: 30 day, Stop date: 09/28/20 9:00:00 CDT metoprolol 0 No 100 mg, 1 Me moria tartrate 4-09 tab, l 22:00: Route: PO, Marty 00 Drug form: TAB, BID, Dosing Weight 97.273, kg, Start date: 08/29/20 17:00:00 CDT, Duration: 30 day, Stop date: 09/28/20 9:00:00 CDT Raltegravir 0 No 400 mg, 1 M emoria 400 MG Oral 4-09 tab, l Tablet 22:00: Route: PO, Skylar nn [ISENTRESS] Drug form: TAB, BID, Dosing Weight 97.273, kg, Start date: 08/29/20 17:00:00 CDT, Duration: 30 day, Stop date: 09/28/20 9:00:00 CDT, 0 Morphine 2020-0 No Notes: Memoria 4-09 (Same l 17:07: as:MORPhin [place] 00 e Sulfate) Morphine No Notes: [place] 4-09 (Same l 17:07: as:MORPhin [place] 00 e Sulfate) Morphine No Notes: Memoria 4-09 (Same l 17:07: as:MORPhin [place] 00 e Sulfate) Morphine 2020-0 No Notes: Memoria 4- (Same l 17:07: as:MORPhin [place] 00 e Sulfate) buPROPion 2021-0 No 150 mg, 1 Mem oria 24 hour 4-09 tab, l extended 16:00: Route: PO, Her mitchell release 00 Drug form: ERTAB, Q24H, Dosing Weight 97.273, kg, Start date: 08/29/20 11:00:00 CDT, Duration: 30 day, Stop date: 09/27/20 11:00:00 CDT, 0 buPROPion 2021-0 No 150 mg, 1 Mem oria 24 hour 4- tab, l extended 16:00: Route: PO, Her mitchell release 00 Drug form: ERTAB, Q24H, Dosing Weight 97.273, kg, Start date: 08/29/20 11:00:00 CDT, Duration: 30 day, Stop date: 09/27/20 11:00:00 CDT, 0 buPROPion 1-0 No 150 mg, 1 Mem oria 24 hour 4- tab, l extended 16:00: Route: PO, Her mitchell release 00 Drug form: ERTAB, Q24H, Dosing Weight 97.273, kg, Start date: 08/29/20 11:00:00 CDT, Duration: 30 day, Stop date: 09/27/20 11:00:00 CDT, 0 buPROPion 1-0 No 150 mg, 1 Mem oria 24 hour 4-09 tab, l extended 16:00: Route: PO, Her mitchell release 00 Drug form: ERTAB, Q24H, Dosing Weight 97.273, kg, Start date: 08/29/20 11:00:00 CDT, Duration: 30 day, Stop date: 09/27/20 11:00:00 CDT, 0 glycopyrrol 2020-0 No Route: IV, Memoria ate (ANES) 08-29 Drug form: l 15:40: INJ, ONCE, Stop date: 08/29/20 10:40:00 CDT neostigmine 2020-0 No Route: IV, Memoria (ANES) 08-29 Drug form: l 15:40: INJ, ONCE, Stop date: 08/29/20 10:40:00 CDT protamine 2020-0 No Route: IV, Me moria (ANES) 08-29 Drug form: l 15:40: INJ, ONCE, Stop date: 08/29/20 10:40:00 CDT fentaNYL 2020-0 No Route: IV, Mem oria (ANES) 08-29 Drug form: l 15:40: INJ, ONCE, Stop date: 08/29/20 10:40:00 CDT glycopyrrol 2020-0 No Route: IV, Memoria ate (ANES) 08-29 Drug form: l 15:40: INJ, ONCE, Stop date: 08/29/20 10:40:00 CDT neostigmine 2020-0 No Route: IV, Memoria (ANES) 08-29 Drug form: l 15:40: INJ, ONCE, Stop date: 08/29/20 10:40:00 CDT protamine 2020-0 No Route: IV, Me moria (ANES) 08-29 Drug form: l 15:40: INJ, ONCE, Stop date: 08/29/20 10:40:00 CDT fentaNYL 2020-0 No Route: IV, Mem oria (ANES) 08-29 Drug form: l 15:40: INJ, ONCE, Stop date: 08/29/20 10:40:00 CDT glycopyrrol 2020-0 No Route: IV, Memoria ate (ANES) 08-29 Drug form: l 15:40: INJ, ONCE, Stop date: 08/29/20 10:40:00 CDT neostigmine 2020-0 No Route: IV, Memoria (ANES) 08-29 Drug form: l 15:40: INJ, ONCE, Stop date: 08/29/20 10:40:00 CDT protamine 2020-0 No Route: IV, Me moria (ANES) 08-29 Drug form: l 15:40: INJ, ONCE, Stop date: 08/29/20 10:40:00 CDT fentaNYL 2020-0 No Route: IV, Mem oria (ANES) 08-29 Drug form: l 15:40: INJ, ONCE, Stop date: 08/29/20 10:40:00 CDT glycopyrrol No Route: IV, Memoria ate (ANES) [...] 30 tab, 0 coated Refill(s), tablet Pharmacy: [facility] 149, 162.56, cm, 08/29/20 5:30:00 CDT, Height, 97.273, kg, 08/29/20 5:30:00 CDT, Weight pantoprazol Yes 40 mg = 1 M emoria e 40 mg 4-09 tab, PO, l oral 15:27: Daily, # [place] enteric 00 30 tab, 0 coated Refill(s), tablet Pharmacy: [facility] 149, 162.56, cm, 08/29/20 5:30:00 CDT, Height, 97.273, kg, 08/29/20 5:30:00 CDT, Weight pantoprazol 2020-0 Yes 40 mg = 1 M emoria e 40 mg 4-09 tab, PO, l oral 15:27: Daily, # [place] enteric 00 30 tab, 0 coated Refill(s), tablet Pharmacy: [facility] 149, 162.56, cm, 08/29/20 5:30:00 CDT, Height, 97.273, kg, 08/29/20 5:30:00 CDT, Weight pantoprazol 2020-0 Yes 40 mg = 1 M emoria e 40 mg 4-09 tab, PO, l oral 15:27: Daily, # [place] enteric 00 30 tab, 0 coated Refill(s), tablet Pharmacy: [facility] 149, 162.56, cm, 08/29/20 5:30:00 CDT, Height, 97.273, kg, 08/29/20 5:30:00 CDT, Weight pantoprazol 2020-0 No 40 mg = 1 M emoria e 40 mg 4-09 tab, PO, l oral 15:26: Daily, # [place] enteric 00 30 tab, 0 coated Refill(s) tablet sucralfate 2020-0 Yes 1 gm = 1 Mem oria 1 g oral 4-09 tab, PO, l tablet 15:26: Q12H, # 28 Skylar nn 00 tab, 0 Refill(s), Pharmacy: [facility] 149, 162.56, cm, 08/29/20 5:30:00 CDT, Height, 97.273, kg, 08/29/20 5:30:00 CDT, Weight pantoprazol 2020-0 No 40 mg = 1 M emoria e 40 mg 4-09 tab, PO, l oral 15:26: Daily, # [place] enteric 00 30 tab, 0 coated Refill(s) tablet sucralfate 2020-0 Yes 1 gm = 1 Mem oria 1 g oral 4-09 tab, PO, l tablet 15:26: Q12H, # 28 Skylar nn 00 tab, 0 Refill(s), Pharmacy: [facility] 149, 162.56, cm, 08/29/20 5:30:00 CDT, Height, 97.273, kg, 08/29/20 5:30:00 CDT, Weight pantoprazol 1-0 No 40 mg = 1 M emoria e 40 mg 4-09 tab, PO, l oral 15:26: Daily, # [place] enteric 00 30 tab, 0 coated Refill(s) tablet sucralfate 2020-0 Yes 1 gm = 1 Mem oria 1 g oral 4-09 tab, PO, l tablet 15:26: Q12H, # 28 Skylar nn 00 tab, 0 Refill(s), Pharmacy: [facility] 149, 162.56, cm, 08/29/20 5:30:00 [...] Skylar nn 00 tab, 0 Refill(s), Pharmacy: [facility] 149, 162.56, cm, 08/29/20 5:30:00 CDT, Height, 97.273, kg, 08/29/20 5:30:00 CDT, Weight Saline No Notes: Memoria Flush 0.9% 4-09 (Same as: l 15:25: BD [place] 00 Posiflush) Lorazepam No Notes: Memori a 4-09 (Same as: l 15:25: Ativan) Saline No Notes: Memoria Flush 0.9% 4-09 (Same as: l 15:25: BD [place] 00 Posiflush) Lorazepam No Notes: Memori a 4-09 (Same as: l 15:25: Ativan) Marty 00 Saline No Notes: Memoria Flush 0.9% 4-09 (Same as: l 15:25: BD [place] Posiflush) Lorazepam No Notes: Memori a 4-09 (Same as: l 15:25: Ativan) Saline No Notes: Memoria Flush 0.9% 4-09 (Same as: l 15:25: BD Marty Posiflush) Lorazepam No Notes: Memori a 4-09 (Same as: l 15:25: Ativan) Isuprel HCl 2021-0 No Route: IV, Memoria (ANES) 0.2 08-29 Drug form: l mg + 15:00: INJ, Dosing Weight 97.3, kg, Start date: 08/29/20 10:00:00 CDT, Stop date: 08/29/20 11:00:00 CDT Isuprel HCl 0 No Route: IV, Memoria (ANES) 0.2 08-29 Drug form: l mg + 15:00: INJ, Dosing Weight 97.3, kg, Start date: 08/29/20 10:00:00 CDT, Stop date: 08/29/20 11:00:00 CDT Isuprel HCl 0 No Route: IV, Memoria (ANES) 0.2 08-29 Drug form: l mg + 15:00: INJ, Dosing Weight 97.3, kg, Start date: 08/29/20 10:00:00 CDT, Stop date: 08/29/20 11:00:00 CDT Isuprel HCl 0 No Route: IV, Memoria (ANES) 0.2 08-29 Drug form: l mg + 15:00: INJ, Dosing Weight 97.3, kg, Start date: 08/29/20 10:00:00 CDT, Stop date: 08/29/20 11:00:00 CDT heparin 2020-0 No Route: IV, Caesar lisa (ANES) 08-29 Drug form: l 14:49: INJ, ONCE, Stop date: 08/29/20 9:49:00 CDT heparin 2020-0 No Route: IV, Caesar lisa (ANES) 08-29 Drug form: l 14:49: INJ, ONCE, Stop date: 08/29/20 9:49:00 CDT heparin 2020-0 No Route: IV, Caesar lisa (ANES) 08-29 Drug form: l 14:49: INJ, ONCE, Stop date: 08/29/20 9:49:00 CDT heparin 2020-0 No Route: IV, Caesar lisa (ANES) 08-29 Drug form: l 14:49: INJ, ONCE, Stop date: 08/29/20 9:49:00 CDT propofol 2020-0 No Route: IV, Mem oria (ANES) 08-29 Drug form: l 14:29: INJ, ONCE, Stop date: 08/29/20 9:29:00 CDT propofol 2020-0 No Route: IV, Mem oria (ANES) 08-29 Drug form: l 14:29: INJ, ONCE, Stop date: 08/29/20 9:29:00 CDT propofol 2020-0 No Route: IV, Mem oria (ANES) 08-29 Drug form: l 14:29: INJ, ONCE, Stop date: 08/29/20 9:29:00 CDT propofol 2020-0 No Route: IV, Mem oria (ANES) 08-29 Drug form: l 14:29: INJ, ONCE, Stop date: 08/29/20 9:29:00 CDT heparin 2020-0 No Route: IV, Caesar lisa (ANES) 08-29 Drug form: l 14:18: INJ, ONCE, Stop date: 08/29/20 9:18:00 CDT heparin 2020-0 No Route: IV, Caesar lisa (ANES) 08-29 Drug form: l 14:18: INJ, ONCE, Stop date: 08/29/20 9:18:00 CDT heparin 2020-0 No Route: IV, Caesar lisa (ANES) 08-29 Drug form: l 14:18: INJ, ONCE, Stop date: 08/29/20 9:18:00 CDT heparin 2020-0 No Route: IV, Caesar lisa (ANES) 08-29 Drug form: l 14:18: INJ, ONCE, Stop date: 08/29/20 9:18:00 CDT Labetalol No 10 mg, Memori a 08-29 Route: l 14:01: IVP, [place] 00 Q5Min, Dosing Weight 97.273, kg, PRN Elevated BP, Start date: 08/29/20 9:01:00 CDT, Duration: 5 doses or times, Stop date: Limited # of times Acetaminoph No 1,000 mg, M emoria en 08-29 Route: PO, l 14:01: Drug form: [place] 00 TAB, ONCE, Dosing Weight 97.273, kg, PRN Pain Score 1-3, Start date: 08/29/20 9:01:00 CDT Oxycodone 1-0 No 5 mg, Memoria Hydrochlori 08-29 Route: [...] Memori a 08-29 Route: l 14:01: IVP, [place] 00 Q2MIN, Dosing Weight 97.273, kg, PRN Narcotic Reversal, Start date: 08/29/20 9:01:00 CDT, Duration: 8 doses or times, Stop date: Limited # of times Ondansetron 2020-0 No 4 mg, Memor ia 08-29 Route: l 14:01: IVP, ONCE, [place] 00 Dosing Weight 97.273, kg, PRN Nausea & Vomiting, Start date: 08/29/20 9:01:00 CDT Labetalol 1-0 No 10 mg, Memori a 08-29 Route: l 14:01: IVP, [place] 00 Q5Min, Dosing Weight 97.273, kg, PRN Elevated BP, Start date: 08/29/20 9:01:00 CDT, Duration: 5 doses or times, Stop date: Limited # of times Acetaminoph 2021-0 No 1,000 mg, M emoria en 08-29 Route: PO, l 14:01: Drug form: [place] 00 TAB, ONCE, Dosing Weight 97.273, kg, PRN Pain Score 1-3, Start date: 08/29/20 9:01:00 CDT Oxycodone 1-0 No 5 mg, Memoria Hydrochlori 08-29 Route: [...] lisa 08-29 Route: l 14:01: IVP, PRN, [place] 00 Dosing Weight 97.273, kg, PRN Benzodiaze pine Reversal, Initial dose, Start date: 08/29/20 9:01:00 CDT, Duration: 30 day, Stop date: 09/28/20 9:00:00 CDT Naloxone 1-0 No 0.4 mg, Memori a 08-29 Route: l 14:01: IVP, [place] 00 Q2MIN, Dosing Weight 97.273, kg, PRN Narcotic Reversal, Start date: 08/29/20 9:01:00 CDT, Duration: 8 doses or times, Stop date: Limited # of times Ondansetron 1-0 No 4 mg, Memor ia 08-29 Route: l 14:01: IVP, ONCE, [place] 00 Dosing Weight 97.273, kg, PRN Nausea & Vomiting, Start date: 08/29/20 9:01:00 CDT Labetalol 1-0 No 10 mg, Memori a 08-29 Route: l 14:01: IVP, [place] 00 Q5Min, Dosing Weight 97.273, kg, PRN Elevated BP, Start date: 08/29/20 9:01:00 CDT, Duration: 5 doses or times, Stop date: Limited # of times Acetaminoph 2021-0 No 1,000 mg, M emoria en 08-29 Route: PO, l 14:01: Drug form: [place] 00 TAB, ONCE, Dosing Weight 97.273, kg, PRN Pain Score 1-3, Start date: 08/29/20 9:01:00 CDT Oxycodone 1-0 No 5 mg, Memoria Hydrochlori 08-29 Route: PO, l de 5 MG 14:01: Drug form: Herm ariel Oral Tablet 00 TAB, Q4H, Dosing Weight 97.273, kg, PRN Pain Score 4-6, Start date: 08/29/20 9:01:00 CDT, Duration: 30 day, Stop date: 09/28/20 9:00:00 CDT Hydromorpho 1-0 No 0.5 mg, Mem oria ne 08-29 Route: l 14:01: IVP, [place] 00 Q5Min, Dosing Weight 97.273, kg, PRN Pain Score 7-10, Start date: 08/29/20 9:01:00 CDT, Duration: 4 doses or times, Stop date: Limited # of times Flumazenil 1-0 No 0.2 mg, Caesar lisa 08-29 Route: l 14:01: IVP, PRN, [place] 00 Dosing Weight 97.273, kg, PRN Benzodiaze pine Reversal, Initial dose, Start date: 08/29/20 9:01:00 CDT, Duration: 30 day, Stop date: 09/28/20 9:00:00 CDT Naloxone 1-0 No 0.4 mg, Memori a 08-29 Route: l 14:01: IVP, [place] 00 Q2MIN, Dosing Weight 97.273, kg, PRN Narcotic Reversal, Start date: 08/29/20 9:01:00 CDT, Duration: 8 doses or times, Stop date: Limited # of times Ondansetron 1-0 No 4 mg, Memor ia 08-29 Route: l 14:01: IVP, ONCE, [place] 00 Dosing Weight 97.273, kg, PRN Nausea & Vomiting, Start date: 08/29/20 9:01:00 CDT Labetalol 1-0 No 10 mg, Memori a 08-29 Route: l 14:01: IVP, [place] 00 Q5Min, Dosing Weight 97.273, kg, PRN Elevated BP, Start date: 08/29/20 9:01:00 CDT, Duration: 5 doses or times, Stop date: Limited # of times Acetaminoph 1-0 No 1,000 mg, M emoria en 08-29 Route: PO, l 14:01: Drug form: [place] 00 TAB, ONCE, Dosing Weight 97.273, kg, PRN Pain Score 1-3, Start date: 08/29/20 9:01:00 CDT Oxycodone 1-0 No 5 mg, Memoria Hydrochlori 08-29 Route: [...] Memori a 08-29 Route: l 14:01: IVP, [place] 00 Q2MIN, Dosing Weight 97.273, kg, PRN [...] ONCE, Stop date: 08/29/20 8:52:00 CDT dexamethaso 2020-0 No Route: IV, Memoria ne (ANES) 08-29 Drug form: l 13:52: INJ, ONCE, Stop date: 08/29/20 8:52:00 CDT lidocaine 2020-0 No Route: IV, Me moria (ANES) 08-29 Drug form: l 13:52: INJ, ONCE, Stop date: 08/29/20 8:52:00 CDT rocuronium 2020-0 No Route: IV, M emoria (ANES) 08-29 Drug form: l 13:52: INJ, ONCE, Stop date: 08/29/20 8:52:00 CDT propofol 2020-0 No Route: IV, Mem oria (ANES) 08-29 Drug form: l 13:52: INJ, ONCE, Stop date: 08/29/20 8:52:00 CDT dexamethaso 2020-0 No Route: IV, Memoria ne (ANES) 08-29 Drug form: l 13:52: INJ, ONCE, Stop date: 08/29/20 8:52:00 CDT lidocaine 2020-0 No Route: IV, moria (ANES) 08-29 Drug form: l 13:52: INJ, ONCE, Stop date: 08/29/20 8:52:00 CDT rocuronium 2020-0 No Route: IV, M emoria (ANES) 08-29 Drug form: l 13:52: INJ, ONCE, Stop date: 08/29/20 8:52:00 CDT propofol 2020-0 No Route: IV, Mem oria (ANES) 08-29 Drug form: l 13:52: INJ, ONCE, Stop date: 08/29/20 8:52:00 CDT dexamethaso 2020-0 No Route: IV, Memoria ne (ANES) 08-29 Drug form: l 13:52: INJ, ONCE, Stop date: 08/29/20 8:52:00 CDT lidocaine 2020-0 No Route: IV, moria (ANES) 08-29 Drug form: l 13:52: INJ, ONCE, Stop date: 08/29/20 8:52:00 CDT rocuronium 2020-0 No Route: IV, [place] emoria (ANES) 08-29 Drug form: l 13:52: INJ, ONCE, Stop date: 08/29/20 8:52:00 CDT propofol 2020-0 No Route: IV, Mem oria (ANES) 08-29 Drug form: l 13:52: INJ, ONCE, Stop date: 08/29/20 8:52:00 CDT dexamethaso 2020-0 No Route: IV, Memoria ne (ANES) 08-29 Drug form: l 13:52: INJ, ONCE, Stop date: 08/29/20 8:52:00 CDT fentaNYL 2020-0 No Route: IV, Mem oria (ANES) 08-29 Drug form: l 13:42: INJ, ONCE, Marty Stop date: 08/29/20 8:42:00 CDT fentaNYL 0 No Route: IV, Mem oria (ANES) 08-29 Drug form: l 13:42: INJ, ONCE, Marty Stop date: 08/29/20 8:42:00 CDT fentaNYL 2020-0 No Route: IV, Mem oria (ANES) 08-29 Drug form: l 13:42: INJ, ONCE, [place] Stop date: 08/29/20 8:42:00 CDT fentaNYL No Route: IV, Mem oria (ANES) 08-29 Drug form: l 13:42: INJ, ONCE, Marty Stop date: 08/29/20 8:42:00 CDT norepinephr 2020-0 No Route: IV, Memoria ine (ANES) 08-29 Drug form: l 10 13:15: INJ, Start Marty microgram date: 08/29/20 8:15:00 CDT, Stop date: 08/29/20 9:15:00 CDT norepinephr 0 No Route: IV, Memoria ine (ANES) 08-29 Drug form: l 10 13:15: INJ, Start Marty microgram date: 08/29/20 8:15:00 CDT, Stop date: 08/29/20 9:15:00 CDT norepinephr 2020-0 No Route: IV, Memoria ine (ANES) 08-29 Drug form: l 10 13:15: INJ, Start Marty microgram date: 08/29/20 8:15:00 CDT, Stop date: 08/29/20 9:15:00 CDT norepinephr 2020-0 No Route: IV, Memoria ine (ANES) 08-29 Drug form: l 10 13:15: INJ, Start [place] microgram 00 date: 08/29/20 8:15:00 CDT, Stop date: 08/29/20 9:15:00 CDT Sodium 2020-0 No Route: IV, Memor ia Chloride 08-29 Total l 0.9% IV 12:30: Volume: Marty (ANES) 1000 00 1,000, mL Start date: 08/29/20 7:30:00 CDT, Stop date: 08/29/20 8:30:00 CDT Sodium 2021-0 No Route: IV, Memor ia Chloride 4-09 Total l 0.9% IV 12:30: Volume: [place] (ANES) 1000 00 1,000, mL Start date: 08/29/20 7:30:00 CDT, Stop date: 08/29/20 8:30:00 CDT Sodium 2021-0 No Route: IV, Memor ia Chloride 4-09 Total l 0.9% IV 12:30: Volume: Marty (ANES) 1000 00 1,000, mL Start date: 08/29/20 7:30:00 CDT, Stop date: 08/29/20 8:30:00 CDT Sodium 1-0 No Route: IV, Memor ia Chloride 4-09 Total l 0.9% IV 12:30: Volume: [place] (ANES) 1000 00 1,000, mL Start date: 08/29/20 7:30:00 CDT, Stop date: 08/29/20 8:30:00 CDT busPIRone 2020-0 Yes 30 mg = 1 Mem oria 30 mg oral 4-09 tab, PO, l tablet 11:43: BID, # 60 Patel n 00 tab, 0 Refill(s) busPIRone 2020-0 Yes 30 mg = 1 Mem oria 30 mg oral 4-09 tab, PO, l tablet 11:43: BID, # 60 Patel n 00 tab, 0 Refill(s) busPIRone 2020-0 Yes 30 mg = 1 Mem oria 30 mg oral 4-09 tab, PO, l tablet 11:43: BID, # 60 Patel n 00 tab, 0 Refill(s) busPIRone 2020-0 Yes 30 mg = 1 Mem oria 30 mg oral 4-09 tab, PO, l tablet 11:43: BID, # 60 Patel n 00 tab, 0 Refill(s) 24 HR 2020-0 Yes 150 mg = 1 Memori a Bupropion 4-09 tab, PO, l Hydrochlori 11:42: Q24H, # 30 Marty de 150 MG 00 tab, 0 Extended Refill(s) Release Tablet 24 HR 0 Yes 150 mg = 1 Memori a Bupropion 4-09 tab, PO, l Hydrochlori 11:42: Q24H, # 30 Marty de 150 MG 00 tab, 0 Extended Refill(s) Release Tablet 24 HR 0 Yes 150 mg = 1 Memori a Bupropion 4-09 tab, PO, l Hydrochlori 11:42: Q24H, # 30 Marty de 150 MG 00 tab, 0 Extended Refill(s) Release Tablet 24 HR Yes 150 mg = 1 Memori a Bupropion 4-09 tab, PO, l Hydrochlori 11:42: Q24H, # 30 [place] de 150 MG 00 tab, 0 Extended Refill(s) Release Tablet apixaban 5 2020-0 Yes 5 mg, PO, Me moria MG Oral 4 Q12H, tab, l Tablet 11:41: 0 [place] [Eliquis] 00 Refill(s), For Atrial Fibrilatio n apixaban 5 2020-0 Yes 5 mg, PO, Me moria MG Oral 08-29 Q12H, tab, l Tablet 11:41: 0 Marty [Eliquis] 00 Refill(s), For Atrial Fibrilatio n apixaban 5 2020-0 Yes 5 mg, PO, Me moria MG Oral 4- Q12H, tab, l Tablet 11:41: 0 [place] [Eliquis] 00 Refill(s), For Atrial Fibrilatio n apixaban 5 2020-0 Yes 5 mg, PO, Me moria MG Oral - Q12H, tab, l Tablet 11:41: 0 [place] [Eliquis] 00 Refill(s), For Atrial Fibrilatio n AMIODarone Yes 200 mg = 1 M emoria 200 mg oral 4-09 tab, PO, l tablet 11:38: Daily, # Marty 00 90 tab, 3 Refill(s) AMIODarone Yes 200 mg = 1 M emoria 200 mg oral 4-09 tab, PO, l tablet 11:38: Daily, # [place] 00 90 tab, 3 Refill(s) AMIODarone Yes 200 mg = 1 M emoria 200 mg oral 4-09 tab, PO, l tablet 11:38: Daily, # [place] 00 90 tab, 3 Refill(s) AMIODarone Yes 200 mg = 1 M emoria 200 mg oral 4- tab, PO, l tablet 11:38: Daily, # Marty 00 90 tab, 3 Refill(s) normal No 1,000 mL, Memori a saline 0.9% 08-29 Rate: 100 l IV 1,000 mL 10:30: ml/hr, Herm ariel 00 Infuse over: 10 hr, Route: IV, Dosing Weight 97.273 kg, Total Volume: 1,000, Start date: 08/29/20 5:30:00 CDT, Duration: 30 day, Stop date: 09/28/20 5:29:00 CDT, 2.13, m2, 0 normal No 1,000 mL, Memori a saline 0.9% 08-29 Rate: 100 l IV 1,000 mL 10:30: ml/hr, Herm ariel 00 Infuse over: 10 hr, Route: IV, Dosing Weight 97.273 kg, Total Volume: 1,000, Start date: 08/29/20 5:30:00 CDT, Duration: 30 day, Stop date: 09/28/20 5:29:00 CDT, 2.13, m2, 0 normal No 1,000 mL, Memori a saline 0.9% 08-29 Rate: 100 l IV 1,000 mL 10:30: ml/hr, Herm ariel 00 Infuse over: 10 hr, Route: IV, Dosing Weight 97.273 kg, Total Volume: 1,000, Start date: 08/29/20 5:30:00 CDT, Duration: 30 day, Stop date: 09/28/20 5:29:00 CDT, 2.13, m2, 0 normal No 1,000 mL, Memori a saline 0.9% 08-29 Rate: 100 l IV 1,000 mL 10:30: ml/hr, Herm ariel 00 Infuse over: 10 hr, Route: IV, Dosing Weight 97.273 kg, Total Volume: 1,000, Start date: 08/29/20 5:30:00 CDT, Duration: 30 day, Stop date: 09/28/20 5:29:00 CDT, 2.13, m2, 0 pantoprazol 2020- No Metho di e 08-29 06-25 st (PROTONIX) 00:00: 00:00 Hospit a 40 MG EC 00 :00 l tablet sucralfate 2020- No [facility] (CARAFATE) 08-2917 st 1 gram 00:00: 00:00 Hospita tablet 00 :00 l Eliquis 5 2020- Yes [facility] mg tablet 3-27 st 00:00: Hospita 00 l apixaban Yes 5mg Take 5 mg Univ ers (ELIQUIS) 5 3-17 by mouth 2 it y of mg tablet 13:18: (two) [place] 30 times Medical daily. Branch amiodarone Yes 100mg Take 100 Un matt 100 mg 3-17 mg by ity of tablet 13:18: mouth [place] 30 daily. Medical Branch montelukast 2020- No 10mg QD Take 10 mg [facility] (SINGULAIR) 07-28-[address] 10 mg 15:16: 00:00 nightly. Hospita tablet 50 :00 l mirtazapine 2020- No 15mg QD Take 15 mg [facility] (REMERON) 07-28-[address] 15 MG 15:16: 00:00 nightly as Hospi ta tablet 43 :00 needed l (insomnia) . amIODarone 2019-05 No 200mg QD Take 1 [facility] (PACERONE) 07-[address] 200 MG 00:00: 05:59 (200 mg Hospita tablet 00 :00 total) by l mouth daily for 30 days. pantoprazol 2019-05 No 40mg Q.5D Take 1 Met [facility] e 07-04 tablet (40 st (PROTONIX) 00:00: 05:59 mg total) H ospita 40 MG EC 00 :00 by mouth 2 l tablet (two) times a day for 30 days. simethicone 2019-05 No 80mg Q6H Chew 1 [facility] (MYLICON) 07-04 tablet (80 st 80 MG 00:00: 05:59 mg total) Hospit a chewable 00 :00 every 6 l tablet (six) hours for 30 days. ipratropium 2019-05 No 3mL Q.25D Take 3 mL [facility] -albuteroL 07-[address] (DUO-NEB) 00:00: 05:59 nebulizati H ospita 0.5-2.5 00 :00 on every 4 l mg/3 mL (four) nebulizer hours while awake for 30 days. budesonide 2019-05 No [id number] .5mg Q.5D Take 2 mL [facility] (PULMICORT) 07-04 (0.[address] 0.5 mg/2 mL 00:00: 05:59 total) by Hospita nebulizer 00 :00 nebulizati l solution on 2 (two) times a day for [address] of symbicort. apixaban 2019-05 No 5mg Q.5D Take 1 Method i (ELIQUIS) 5 07-04 tablet (5 st mg tablet 00:00: 05:59 mg total) Ho spita 00 :00 by mouth 2 l (two) times a day for 30 days. acetaminoph 2019-05- No [id number] 1{tbl} Q6H Take 1 [facility] en-codeine 07-04-[address] (TYLENOL 00:00: 05:59 mouth Hospita WITH 00 :00 every 6 l CODEINE #3) (six) 300-30 mg hours as per tablet needed for moderate pain for up to 7 days .acute pain. lidocaine 2019-05- No 1{patch Q24H Place 1 M ethodi (LIDODERM) 07-0420 } patch on st 5 % 00:00: 05:59 the skin Hospita 00 :00 daily for l 7 days. Remove & Discard patch within 12 hours or as directed by methocarbam 2019-05- No 1000mg Q.25D Take 2 [facility] oL 07-04-[address] (ROBAXIN) 00:00: 05:59 (1,000 mg Ho spita 500 MG 00 :00 total) by l tablet mouth 4 (four) times a day for 7 days. apixaban 2019-05- No 5mg Q.5D Take 1 Method i (ELIQUIS) 5 2-12 12-12 tablet (5 st mg tablet 00:00: 00:00 mg total) Ho spita 00 :00 by mouth 2 l (two) times a day. ARIPiprazol 2019-05 No 5mg Take 1 Met hodi e (ABILIFY) 07-04 tablet (5 st 5 MG tablet 00:00: 00:00 mg total) Hospita 00 :00 by mouth l once for 1 dose. naloxone 4 2019-05 1{spray 1 spray [facility] mg/actuatio 07-0208 } into each st n 00:00: 00:00 nostril Hospita spray,non-a 00 :00 once as l erosol needed (breathing less than 8 per minute or inability to arouse) for up to 2 doses. triamterene 2019-05 1{tbl} QD Take 1 M ethodi -hydrochlor 06-[address] othiazid 22:16: 00:00 mouth Hospita (MAXZIDE-25 20 :00 daily. l ) 37.5-25 mg per tablet ARIPiprazol 2019-05 No 5mg Take 5 mg Method[facility] e (ABILIFY) 06-[address] 5 MG tablet 02:00: 00:00 Hospi ta 12 :00 l hydralAZINE 2019-05 Yes 25mg Take 25 mg Univers (APRESOLINE 0-12 by mouth ity of ) 25 mg 13:06: daily. [place] tablet 41 Medical Branch lisinopril 2019-05 Yes 40mg Take 40 mg U nivers (PRINIVIL,Z 0-12 by mouth 2 it y of ESTRIL) 40 13:06: (two) [place] mg tablet 41 times Medical daily. Branch metoprolol 2019-05 Yes 100mg Take 100 Un matt tartrate 0-12 mg by ity of (LOPRESSOR) 13:06: mouth 2 [place] as 100 mg 41 (two) Medical tablet times Branch daily. amLODIPine 2019-05 Yes 10mg Take 10 mg U nivers (NORVASC) 0-12 by mouth ity of 10 mg 13:06: daily. [place] tablet 41 Medical Branch esomeprazol 2019-05 Yes 40mg Take 40 mg Univers e (NEXIUM) 0-12 by mouth 2 ity of 40 mg 13:06: (two) [place] capsule 41 times Medical daily. Branch albuterol Yes Univers 90 4-14 ity of mcg/actuati 00:00: [place] on inhaler 00 Medical [place] DESCOVY Yes 1{tbl} QD Take 1 Method i 200-25 mg 3-[address] tablet 00:00: mouth Hospita 00 daily. l ISENTRESS Yes 400mg Q.5D Take 400 Met [facility]odi 400 mg 3-[address] tablet 00:00: mouth 2 Hospita 00 (two) l times a day. Immunizations Ordered Filled Immunization Date Status Comments Sour e Immunization Name Name PFIZER COVID-19 2020-07-23 Completed [facility] VACCINATION 00:00:00 [facility] PFIZER COVID-19 2020-07-02 Completed [facility] M[facility] VACCINATION 00:00:00 [facility] Influenza Virus 2017-03-08 Completed Universit y of Vaccine 00:00:00 [facility] Influenza Virus 2014-01-30 Completed Universit y of Vaccine (3+ yrs) 00:00:00 [facility] dical Branch Pneumococcal 13 2014-01-30 Completed Universit y of Conjugate, PCV13 00:00:00 [facility] dical (Prevnar 13) Branch Pneumococcal 2012-02-16 Completed University o f Polysaccharide, 00:00:00 [facility] PPSV23 (PNEUMOVAX) Branch Influenza Virus 2012-02-16 Completed Universit y of Vaccine 00:00:00 [facility] PPD (TB) 2012-02-16 Completed University of 00:00:00 [facility] Hep B, Adol or Pedi 2011-09-01 Completed Unive rsity of Dosage 00:00:00 [facility] Hep B, Adol or Pedi 2011-03-17 Completed Unive rsity of Dosage 00:00:00 [facility] Influenza Virus 2011-02-10 Completed Universit y of Vaccine 00:00:00 [facility] Hep B, Adol or Pedi 2011-02-10 Completed Unive rsity of Dosage 00:00:00 [facility] PPD (TB) 2010-11-18 Completed University of 00:00:00 [facility] TDAP (ADACEL) 2010-11-18 Completed University of VACCINE 00:00:00 [facility] HEPATITIS A 2004-03-02 Completed University of 00:00:00 [facility] HEPATITIS A 2003-08-01 Completed University of 00:00:00 [facility] Pneumococcal 2001-10-04 Completed University o f Polysaccharide, 00:00:00 [place] Med ical PPSV23 (PNEUMOVAX) Branch PPD (TB) 2001-10-04 Completed [facility] 00:00:00 [facility] Vital Signs Vital Name Observation Time Observation Value Comments Source Systolic blood 2021-01-28 14:08:00 141 mm[Hg] Univer sity of pressure [facility] Diastolic blood 2021-01-28 14:08:00 79 mm[Hg] Unive rsity of [facility] Heart rate 2021-01-28 14:08:00 56 /min [facility] Respiratory rate 2021-01-28 14:02:00 18 /min [facility] hospital Body height 2021-01-28 14:02:00 162.6 cm [facility] Body weight 2021-01-28 14:02:00 99.111 kg [facility] BMI 2021-01-28 14:02:00 37.51 kg/m2 [facility] Heart rate 2020-12-08 15:48:00 64 /min [facility] Body temperature 2020-12-08 15:48:00 36.61 Amina [facility] [place] [facility] Respiratory rate 2020-12-08 15:48:00 17 /min [facility] Body height 2020-12-08 15:48:00 162.6 cm [facility] Body weight 2020-12-08 15:48:00 98.884 kg [facility] BMI 2020-12-08 15:48:00 37.42 kg/m2 [facility] Oxygen saturation in 2020-12-08 15:48:00 97 /min [facility] Arterial blood by Pulse oximetry Systolic blood 2020-12-08 15:48:00 125 mm[Hg] Method ist [facility] pressure Diastolic blood 2020-12-08 15:48:00 76 mm[Hg] [facility]o [facility] pressure Body temperature 2020-12-02 14:14:00 36.83 Amina [facility] hospital Respitory Rate 2020-08-30 13:00:00 [place] Systolic (mm Hg) 2020-08-30 13:00:00 Caesar rial Marty Diastolic (mm Hg) 2020-08-30 13:00:00 Mem orial [place] Systolic (mm Hg) 2020-08-30 11:00:00 Caesar rial [place] Diastolic (mm Hg) 2020-08-30 11:00:00 Mem orial Marty Temperature Oral (F) 2020-08-30 11:00:00 98.4 F [facility] Respitory Rate 2020-08-30 11:00:00 Memori al [place] Respitory Rate 2020-08-30 10:00:00 Memori al [place] Systolic (mm Hg) 2020-08-30 10:00:00 Caesar rial [place] Diastolic (mm Hg) 2020-08-30 10:00:00 Mem orial Marty Temperature Oral (F) 2020-08-30 00:00:00 96.9 F [facility] Temperature Oral (F) 2020-08-29 11:26:00 97.6 F [facility] [place] Height 2020-08-29 10:30:00 162.56 cm [facility] [place] Weight 2020-08-29 10:30:00 [facility] BMI Calculated 2020-08-29 10:30:00 Memori al [place] Oxygen saturation in 2020-01-26 18:00:00 92 /min [facility] Arterial blood by [facility] Pulse oximetry Branch Procedures Procedure Date / Time Performing Source Performed Clinician COVID-19 (MOLECULAR TESTING 2021-01-02 Yesy Fuentes of NUCLEIC ACID AMPLIFICATION) 17:28[facility] [facility] LAB ONLY COVID INTERPRETATION 2021-01-02 Jack Fuentes iversity of 17:28:00 [facility] GASTROINTESTINAL PANEL 2020-12-08 Eliseo Arce 22:21:00 [facility] XR ABDOMEN 1 VW 2020-12-08 Eliseo Arce 18:06:32 [facility] HUMAN IMMUNODEFICIENCY VIRUS 1 2020-12-02 Santiago Cardneas [facility]iversity of (HIV-1) BY QUANTITATIVE NAAT 15:42:00 [facility] Branch CD4 SUBSET ASSAY 2020-12-02 [facility] of 15:42:00 [facility] GLYCOSYLATED HEMOGLOBIN (A1C) 2020-12-02 Santiago Cardenas Un iversity of 15:42:00 [facility] BASIC METABOLIC PANEL (NA, K, CL, 2020-12-02 [facility] of CO2, GLUCOSE, BUN, CREATININE, CA) 15:42:00 [facility] GALV ONLY - VAGINAL PATHOGENS BY 2020-11-25 Devin Beltran Floris of NUCLEIC ACID TESTING 18:19:00 [facility] al Branch CONSENT/REFUSAL FOR DIAGNOSIS AND 2020-11-25 [facility] TREATMENT 15:41:40 Unassigned, No [facility] ASSIGNMENT OF BENEFITS 2020-11-25 Doctor [facility] of 15:41:12 Unassigned, No [facility] Name Branch OR [place] < 1 HOUR 2020-09-05 Eliseo Arce 22:39:00 Hospital SURGICAL PATHOLOGY REQUEST 2020-09-05 Eliseo Arce dist 21:54:00 Hospital XR CHEST 1 VW PORTABLE 2020-09-05 Eliseo Arce 19:55:00 Hospital DE AN ELECTIVE ENDOTRACHEAL AIRWAY 2020-09-05 [place] [facility] 16:[facility] 2020-09-05 Eliseo Arce 16:27:00 Hospital PARTIAL THROMBOPLASTIN TIME (PTT) 2020-09-05 Ted Maharaj 15:04:00 [facility] PROTHROMBIN TIME WITH INR 2020-09-05 Jignesh Maharaj ist 15:04:00 [facility] HC COMPLETE BLD COUNT W/AUTO DIFF 2020-09-01 Shanell Mitchell 15:45:00 Hospital PROTHROMBIN TIME WITH INR 2020-09-01 Shanell Mitchell Method ist 15:45:00 Hospital PARTIAL THROMBOPLASTIN TIME (PTT) 2020-09-01 Shanell Mitchell 15:45:00 Hospital ECG 12-LEAD 2020-09-01 Shanell Mitchell 15:31:26 Hospital COVID-19 QUALITATIVE RT-PCR 2020-09-01 Shanell Mitchell odist 15:24:00 Hospital COMPREHENSIVE METABOLIC PANEL 2020-09-01 Shanell Mitchell Me thodist 15:23:00 Hospital ESTIMATED GFR 2020-09-01 Shanell Mitchell 15:23:00 Hospital NM GASTRIC EMPTYING 2020-08-27 Eliseo Arce 19:05:[address] CHEST WO CONTRAST ABDOMEN WO 2020-08-21 Eliseo Arce CONTRAST 15:20:00 Hospital FL ESOPHAGRAM SINGLE CONTRAST 2020-08-13 Eliseo Arce Me thodist 15:25:00 [facility] [id number] 2020-05-07 Provider, Rastafari 00:00:00 [facility] Hospital BASIC METABOLIC PANEL 2020-05-02 Pau Ott 15:08:00 Hospital HC COMPLETE BLD COUNT W/AUTO DIFF 2020-05-02 Pau Ott 15:08:00 Hospital MAGNESIUM LEVEL 2020-05-02 Pau Ott 15:08:00 Hospital ESTIMATED GFR 2020-05-02 Eliseo Arce 15:08:00 [facility] CBC HEMOGRAM 2020-05-01 Idalmis Montillaist 11:20:00 [facility] BASIC METABOLIC PANEL 2020-05-01 Idalmis Montilla Rastafari 10:00:00 Hospital ESTIMATED GFR 2020-05-01 Idalmis Montillaist 10:00:00 Hospital HEPATIC FUNCTION PANEL 2020-05-01 Idalmis Montillais t 10:00:00 Hospital THYROID STIMULATING HORMONE 2020-05-01 Idalmis Montilla Met hodist 10:00:00 [facility] US DUPLEX VENOUS UPPER EXTREMITY 2020-04-30 Ceasar Patel ee Rastafari BILATERAL 23:36:00 Hospital XR CHEST 2 VW 2020-04-30 Pau Ott 22:18:36 Hospital MIDLINE INSERTION ATTEMPT - 2020-04-30 [place], Blesilda Me thodist UNSUCCESSFUL 17:14:34 Hospital XR ABDOMEN 1 VW PORTABLE 2020-04-[address] 15:45:00 [facility] ECG 12-LEAD 2020-04-30 Pau Ott 15:06:58 Hospital DE AN ELECTIVE ENDOTRACHEAL AIRWAY 2020-04-28 Carlee Malloy Rastafari 20:57:57 [facility] REPAIR, HIATAL HERNIA, 2020-04-28 Eliseo Arce LAPAROSCOPIC, ROBOT-ASSISTED 19:38:00 [facility] pital ESOPHAGOGASTRODUODENOSCOPY (EGD) 2020-04-28 Eliseo Arce 19:38:00 Hospital POC GLUCOSE 2020-04-28 Cadealeshia Ray Rastafari 15:01:00 Hospital SURGICAL PATHOLOGY REQUEST 2020-04-28 Eliseo Arce Metho dist 14:27:00 Hospital BASIC METABOLIC PANEL 2020-04-28 Amirisaiosrarohini, Rastafari 08:11:00 [facility] HC COMPLETE BLD COUNT W/AUTO DIFF 2020-04-28 Amirhardy, Rastafari 08:11:00 [facility] MAGNESIUM LEVEL 2020-04-28 Amirisaiosravi, Rastafari 08:11:00 [facility] PHOSPHORUS LEVEL 2020-04-28 Amirisaiosravi, Rastafari 08:11:00 [facility] PROTHROMBIN TIME WITH INR 2020-04-28 Carlos Method ist 08:11:00 [facility] PARTIAL THROMBOPLASTIN TIME (PTT) 2020-04-28 Amisoleosjacklyn, Rastafari 08:11:00 [facility] ESTIMATED GFR 2020-04-28 Eliseo Arce 08:11:00 Hospital TYPE AND SCREEN 2020-04-28 Eliseo Arceist 08:11:00 Hospital POC GLUCOSE 2020-04-28 Yazmin Ray Rastafari 05:38:00 Hospital POC GLUCOSE 2020-04-28 Yazmin Ray Rastafari 02:14:00 Hospital TTE COMPLETE, WO CONTRAST, W 2020-04-27 Nieves Hyde Ia thodist DOPPLER ([id number]) 21:00:00 Hospital POC GLUCOSE 2020-04-27 Eliseo Arce 18:30:00 Hospital BASIC METABOLIC PANEL 2020-04-27 Yazmin Ray Rastafari 12:34:00 Hospital ESTIMATED GFR 2020-04-27 Yazmin Ray Rastafari 12:34:00 Hospital POC GLUCOSE 2020-04-27 Yazmin Ray Rastafari 03:18:00 Hospital ECG 12-LEAD 2020-04-27 Nieves Hyde 02:24:31 Hospital COVID-19 QUALITATIVE RT-PCR 2020-04-26 Amirhardy Meth odist 21:44:00 [facility] HC COMPLETE BLD COUNT W/AUTO DIFF 2020-04-26 Amirhardy Rastafari 09:05:00 [facility] BASIC METABOLIC PANEL 2020-04-26 Jignesh Gonzalezist 09:05:00 [facility] MAGNESIUM LEVEL 2020-04-26 Carlos Rastafari 09:05:00 [facility] PHOSPHORUS LEVEL 2020-04-26 Carlos Rastafari 09:05:00 [facility] CD 4 SUBSET 2020-04-26 Eliseo Arceist 09:05:00 Hospital ESTIMATED GFR 2020-04-26 Eliseo Arce 09:05:00 Hospital MISCELLANEOUS REFERRAL TEST 2020-04-26 Eliseo Arce Meth odist 09:05:00 Hospital POTASSIUM LEVEL 2020-04-26 Eliseo Arce 03:04:00 Hospital HC COMPLETE BLD COUNT W/AUTO DIFF 2020-04-26 Ted Gonzalez 00:51:00 [facility] BASIC METABOLIC PANEL 2020-04-26 Jignesh Gonzalezist 00:51:00 [facility] MAGNESIUM LEVEL 2020-04-26 Ted Gonzalez 00:51:00 [facility] PHOSPHORUS LEVEL 2020-04-26 Carlos Rastafari 00:51:00 [facility] ESTIMATED GFR 2020-04-26 Eliseo Arce 00:51:00 Hospital FL ESOPHAGRAM DOUBLE CONTRAST 2020-04-25 Eliseo Arce Me thodist 17:31:[address] CHEST WO CONTRAST ABDOMEN WO 2020-04-21, Yen-Te Rastafari CONTRAST PELVIS WO CONTRAST 14:15:34 [facility] HC COMPLETE BLD COUNT W/AUTO DIFF 2020-04-21, Yen-Te Rastafari 13:22:00 [facility] COMPREHENSIVE METABOLIC PANEL 2020-04-21, Yen-Te Me thodist 13:22:00 [facility] LIPASE LEVEL 2020-04-21, Yen-Te Rastafari 13:22:00 [facility] LACTIC ACID LEVEL, SEPSIS - NOW 2020-04-21, Yen-Te Rastafari AND REPEAT 2X EVERY 3 HOURS 13:22:00 [facility] ital ESTIMATED GFR 2020-04-21, Yen-Te Rastafari 13:22:00 [facility] Plan of Care Planned Activity Planned Date Details Comments Source Future Scheduled Test DIABETES: RETINAL EYE [facility] EXAM [code = DIABETES: RETINAL EYE EXAM] Future Scheduled Test DIABETIC FOOT EXAM [facility] [code = DIABETIC FOOT EXAM] Future Scheduled Test Screening for malignant [facility] neoplasm of cervix (procedure) [code = 624226311] Future Scheduled Test BREAST CANCER SCREENING [facility] [code = BREAST CANCER SCREENING] Future Scheduled Test COLONOSCOPY SCREENING [facility] [code = COLONOSCOPY SCREENING] Future Scheduled Test SHINGLES VACCINES (#1) [facility] [code = SHINGLES VACCINES (#1)] Future Scheduled Test COVID-19 VACCINE (3 - [facility] Pfizer risk 3-dose series) [code = COVID-19 VACCINE (3 - Pfizer risk 3-dose series)] Future Scheduled Test INFLUENZA VACCINE [code [facility] = INFLUENZA VACCINE] Future Scheduled Test 65+ PNEUMOCOCCAL Me [facility] VACCINE (4 of 4) [code = 65+ PNEUMOCOCCAL VACCINE (4 of 4)] Encounters Start End Encounter Admission Attending Care Care Encounter Source Date/Time Date/Time Type Type Clinicians Facility Department ID 2020-12-12 Outpatient HEMATPOUR, [facility] [id number] [place] 08:16:46 [facility] 2020-12-12 Outpatient HEMATPOUR, [facility] [id number] [place] 07:42:11 [facility] 2020-10-31 Outpatient HEMATPOUR, [facility] [id number] [place] 09:44:50 [facility] 2020-10-31 Outpatient HEMATPOUR, [facility] [id number] [place] 07:54:08 [facility] 2020-09-30 Outpatient HEMATPOUR, [facility] [id number] [place] 13:16:03 [facility] 2021-01-28 2021-01-28 Travel 1.2.840.1 1.2.161.819 7277 [id number] Univers 00:00:00 00:00:00 06377.1.1 350.1.13.10 ity of 3.104.2.7 [place].698 [place] .3.820770 084.8 Medica l .8 Branch 2021-01-19 2021-01-19 Telephone Prabhu 1.2.840.1 [id number] [id number] Methodi 00:00:00 00:00:[address] 3.430.2.7 Hospit a .3.808472 l .8 2021-01-04 2021-01-04 Letter Shelia, 1.2.840.4 [id number] 85725 696 Univers 00:00:00 00:00:00 (Out) Dagoberto H 68810.1.1 ity of 3.104.2.7 [place] .3.527614 Medica l .8 Branch 2021-01-03 2021-01-03 Letter Shelia, 1.2.840.1 [id number] [id number] 790 Univers 00:00:00 00:00:00 (Out) Dagoberto H 52325.1.1 ity of 3.104.2.7 [place] .3.755673 Medica l .8 Branch 2021-01-02 2021-01-02 Laboratory Cuba Franks 1.2.840.6 [id number] [id number] Univers 12:14:13 12:57:34 Only Lab, Adc Fam Pob I 05243.1.1 ity of 3.104.2.7 [place] .3.237553 Medica l .8 Branch 2021-01-02 2021-01-02 Travel 1.2.840.1 1.2.254.915 3295 2306 Univers 00:00:00 00:00:00 29623.1.1 350.1.13.10 ity of 3.104.2.7 4.[place]7.3.698 [place] .3.260854 084.8 Medica l .8 Branch 2021-01-02 2021-01-02 Letter Doctor 1.2.840.7 [id number] 948 Univers 00:00:00 00:00:00 (Out) Unassigned, 71021.1.1 ity of [place] 3.104.2.7 [place] .3.055432 Medica l .8 Branch 2021-01-02 2021-01-02 Letter Doctor 1.2.840.0 [id number] 946 Univers 00:00:00 00:00:00 (Out) Unassigned, 22005.1.1 ity of [place] 3.104.2.7 [place] .3.223104 Medica l .8 Branch 2020-12-22 2020-12-22 Telephone Devin, 1.2.840.1 [id number] 862 72177 Univers 00:00:00 00:00:00 Robbi Hairston 16022.1.1 i ty of 3.104.2.7 [place] .3.378557 Medica l .8 [place] 2020-12-12 2020-12-12 Office Hematpour, UTP 6400 1.2.840.114 12 [id number] 07:42:02 08:18:[address] 350.1.13.58 9.2.7.2.686 [id number] 1 2020-12-09 2020-12-09 Telephone Carol Ann, 1.2.840.1 [id number] Methodi 00:00:00 00:00:00 Sarai Corbin. 08205.1.1 316 s t 3.430.2.7 Hospit a .3.193250 l .8 2020-12-08 2020-12-08 [facility], 1.2.840.1 [id number] 2100 [id number] Methodi 12:35:54 23:59:00 Encounter Ray 07901.1.[address] 3.430.2.7 Hospit a .3.653780 l .8 2020-12-08 2020-12-08 [facility], 1.2.840.1 [id number] 70499 24698 Methodi 17:20:50 17:25:[address] 3.430.2.7 Hospit a .3.673342 l .8 2020-12-08 2020-12-08 [facility], 1.2.840.1 [id number] 38391 02677 Methodi 09:55:34 11:39:56 Visit Ray 53122.1.[address] 3.430.2.7 Hospit a .3.082100 l .8 2020-12-08 2020-12-08 Outpatient YAZMIN, [facility] [id number] 5223 [place] 00:00:00 00:00:00 RAY [address] 2020-12-08 2020-12-08 Outpatient YAZMIN [facility] [id number] 9604 [place] 00:00:00 00:00:00 RAY [address] 2020-12-08 2020-12-08 Outpatient YAZMIN [facility] [id number] 1578 [place] 00:00:00 00:00:00 RAY [address] 2020-12-08 2020-12-08 Travel 1.2.840.1 1.2.740.438 2148 155084 Methodi 00:00:00 00:00:[address] 3.430.2.7 0.2.7.3.698 [facility] .3.710290 084.8 l .8 2020-12-02 2020-12-02 Transcriber [facility] 1.2.840.114 8 [id number] 10:20:06 10:36:19 Visit [facility] 350.1.13.10 CLINICS 4.2.7.2.686 [id number] 316 2020-12-02 2020-12-02 Transcriber Santiago Cardenas 1.2.840.1 [id number] [facility] 10:20:06 10:36:19 Visit c-Lab 57293.1.1 ity of 3.104.2.7 [place] .3.285332 Medica l .8 [place] 2020-12-02 2020-12-02 Office Ronald 1.2.840.0 [id number] [address] [facility] 08:31:37 09:01:37 Visit Santiago 83538.1.1 ity of 3.104.2.7 [place] .3.882019 Medica l .8 [place] 2020-11-25 2020-11-25 [facility] 1.2.840.114 [id number] 11:06:30 11:58:[address] LAB TECHNICIAN 350.1.13.10 REGIONAL 4.2.7.2.686 MATERNAL [id number] & CHILD 107 [facility] 2020-11-25 2020-11-25 Office Devin, 1.2.840.6 [id number] 26198 865 Univers 11:06:30 11:58:14 Visit Devinaleshia Hairston 13012.1.1 i ty of 3.104.2.7 [place] .3.145104 Medica l .8 [place] 2020-11-25 2020-11-25 [facility] 1.2.958.731 8320 4592 00:00:00 00:00:00 [facility] 350.1.13.10 [facility] 4.2.7.2.686 [id number] [facility] 2020-11-25 2020-11-25 [facility] 1.2.050.831 0193 0821 00:00:00 00:00:[address] LAB TECHNICIAN 350.1.13.10 [facility] 4.2.7.2.686 MATERNAL [id number] & CHILD 107 [facility] 2020-11-25 2020-11-25 Telephone Devin, 1.2.840.7 [id number] 855 47638 Univers 00:00:00 00:00:00 Devinaleshia Hairston 90575.1.1 i ty of 3.104.2.7 [place] .3.625411 Medica l .8 [place] 2020-11-25 2020-11-25 [facility] 1.2.840.2 [id number] 38610 592 Univers 00:00:00 00:00:00 Santiago 77571.1.1 ity of 3.104.2.7 [place] .3.266331 Medica l .8 Branch 2020-11-25 2020-11-25 Travel 1.2.840.1 1.2.564.923 0331 0247 Univers 00:00:00 00:00:00 03825.1.1 350.1.13.10 ity of 3.104.2.7 4.[place].7.3.698 [place] .3.712143 084.8 Medica l .8 [place] 2020-11-25 2020-11-25 Orders Doctor 1.2.840.9 [id number] 43493 064 Univers 00:00:00 00:00:00 Only Unassigned, 55424.1.1 ity of [place] 3.104.2.7 [place] .3.926448 Medica l .8 [place] 2020-11-14 2020-11-14 Abstract Clark, 1.2.840.1 [id number] 45014 40102 Methodi 00:00:00 00:00:[address] 3.430.2.7 Hospit a .3.978832 l .8 2020-11-14 2020-11-14 Telephone Rodas, 1.2.840.1 [id number] 2099 538609 Methodi 00:00:00 00:00:[address] 3.430.2.7 Hospit a .3.034772 l .8 2020-11-07 2020-11-07 Telephone Diana, [facility] 6400 1.2.840.114 124 [id number] 00:00:00 00:00:[address] 350.1.13.58 9.2.7.2.686 [id number] 1 2020-10-29 2020-10-29 Refill [place], 1.2.840.9 [id number] 73844 400 Univers 00:00:00 00:00:00 Santiago 26068.1.1 ity of 3.104.2.7 [place] .3.882991 Medica l .8 [place] 2020-10-27 2020-10-27 Telephone Yazmin, 1.2.840.1 [id number] Methodi 00:00:00 00:00:[address] 3.430.2.7 Hospit a .3.855975 l .8 2020-10-24 2020-10-24 Telephone Rodas, 1.2.840.1 [id number] 2099 [id number] Methodi 00:00:00 00:00:[address] 3.430.2.7 Hospit a .3.260076 l .8 2020-10-06 2020-10-12 [facility] 1.2.840.1 [id number] 21 [id number] Methodi 15:26:54 00:08:46 ne Ray 89216.1.[address] 3.430.2.7 Hospit a .3.193600 l .8 2020-10-06 2020-10-06 [facility] [id number] 3369 [place] 00:00:00 00:00:00 RAY [address] 2020-09-30 2020-09-30 [facility], 1.2.840.0 [id number] 21 [id number] Methodi 00:00:00 00:00:[address] 3.430.2.7 Hospit a .3.679812 l .8 2020-09-21 2020-09-21 [facility] 1.2.840.1 1.2.838.120 1395 919128 Methodi 00:00:00 00:00:[address] 3.430.2.7 0.2.7.3.698 Ho spita .3.427348 084.8 l .8 2020-09-01 2020-09-09 Lab Shanell Mitchell 1.2.840.1 [id number] 72993 23556 Methodi 10:13:59 01:05:[address] 3.430.2.7 Hospit a .3.365121 l .8 2020-09-06 2020-09-06 [facility] 1.2.840.1 [id number] 17527 31858 Methodi 17:42:30 23:59:[address] 3.430.2.7 Hospit a .3.008084 l .8 2020-09-06 2020-09-06 [facility], 1.2.840.1 [id number] 2100 740402 Methodi 16:50:00 17:41:00 Encounter Ray 95030.1.[address] 3.430.2.7 Hospit a .3.835439 l .8 2020-09-06 2020-09-06 Outpatient [facility] [id number] 2412 [place] 00:00:00 00:00:00 RAY [address] 2020-09-06 2020-09-06 Outpatient [facility] [id number] 684 [place] 00:00:00 00:00:[address] 2020-09-05 2020-09-05 [facility], 1.2.840.1 [id number] 2099 [id number] Methodi 09:17:00 19:45:00 Encounter Ray 13366.1.[address] 3.430.2.7 Hospit a .3.560055 l .8 2020-09-05 2020-09-05 Surgery [facility], 1.2.840.1 [id number] 03678 81118 Methodi 11:30:00 13:15:[address] 3.430.2.7 Hospit a .3.441422 l .8 2020-09-05 2020-09-05 Anesthesia Remigio, 1.2.840.1 [id number] 235 [id number] Methodi 11:27:00 12:20:00 Event Kirit 80608.1.1 243 s t V. 3.430.2.7 Hospit a .3.244749 l .8 2020-09-05 2020-09-05 Outpatient [facility] 021 [id number] 6774 [place] 00:00:00 00:00:00 RAY [address] 2020-09-05 2020-09-05 Travel 1.2.840.1 1.2.921.241 2083 087093 Methodi 00:00:00 00:00:[address] 3.430.2.7 0.2.7.3.698 Ho spita .3.146168 084.8 l .8 2020-09-04 2020-09-04 Telephone Meiariel, 1.2.840.1 [id number] Methodi 00:00:00 00:00:00 Sarai Lieberman 99727.1.1 762 s t 3.430.2.7 Hospit a .3.187733 l .8 2020-09-02 2020-09-02 Telephone Carol Ann, 1.2.840.6 [id number] Methodi 00:00:00 00:00:00 Sarai Lieberman 85360.1.1 344 s t 3.430.2.7 Hospit a .3.690468 l .8 2020-09-01 2020-09-01 Office Yazmin, 1.2.840.1 [id number] 75065 79360 Methodi 08:42:53 09:50:51 Visit Ray 88442.1.[address] 3.430.2.7 Hospit a .3.015994 l .8 2020-09-01 2020-09-01 Outpatient SHANELL MITCHELL [facility] [id number] 8757 [place] 00:00:00 00:00:[address] 2020-09-01 2020-09-01 Outpatient YAZMIN [facility] [id number] 1343 [place] 00:00:00 00:00:00 RAY [address] 2020-09-01 2020-09-01 Telephone Yazmin, 1.2.840.5 [id number] 21 [id number] Methodi 00:00:00 00:00:[address] 3.430.2.7 Hospit a .3.788277 l .8 2020-09-01 2020-09-01 Travel 1.2.840.1 1.2.941.808 2589 766936 Methodi 00:00:00 00:00:[address] 3.430.2.7 0.2.7.3.698 Ho spita .3.507042 084.8 l .8 2020-08-29 2020-08-30 Bedded [facility] [id number] 275 [place] 10:20:00 14:10:00 Outpatient [facility] 00 [facility] 2020-08-29 2020-08-30 Bedded [facility] [id number] 275 [place] 10:20:00 14:10:00 Outpatient r Marty 00 l [facility] 2020-08-29 2020-08-30 Outpatient Hematpour, [facility] [id number] 05:20:00 09:10:00 Khashayar 00 2020-08-29 2020-08-29 Outpatient [facility] CAR 7500 [facility] 05:20:00 05:20:00 2020-08-29 2020-08-29 Outpatient Hematpour, [facility] 5542 [id number] 05:20:00 05:20:00 Khashayar 2020-08-27 2020-08-27 [facility], 1.2.840.1 [id number] 2100 [id number] Methodi 09:55:15 23:59:00 Encounter Ray [address]1389.1.[address] 3.430.2.7 Hospit a .3.186396 l .8 2020-08-27 2020-08-27 Outpatient [facility] [id number] 2879 [place] 00:00:00 00:00:00 RAY [address] 2020-08-27 2020-08-27 Travel 1.2.840.1 1.2.022.444 8503 270056 Methodi 00:00:00 00:00:[address] 3.430.2.7 0.2.7.3.698 Ho spita .3.596882 084.8 l .8 2020-08-21 2020-08-21 Outpatient [facility] [id number] 8477 [place] 00:00:00 00:00:00 RAY [address] 2020-08-21 2020-08-21 Travel 1.2.840.1 1.2.135.236 1800 691523 Methodi 00:00:00 00:00:[address] 3.430.2.7 0.2.7.3.698 Ho spita .3.276410 084.8 l .8 2020-08-19 2020-08-19 Telephone Meli, 1.2.840.1 [id number] 876 [id number] Methodi 00:00:00 00:00:[address] 3.430.2.7 Hospit a .3.286019 l .8 2020-08-19 2020-08-19 Travel 1.2.840.1 1.2.055.526 4793 622337 Methodi 00:00:00 00:00:[address] 3.430.2.7 0.2.7.3.698 Ho spita .3.355890 084.8 l .8 2020-08-18 2020-08-18 Orders Carol Ann, 1.2.840.4 [id number] 2 [id number] Methodi 00:00:00 00:00:00 Only Sarai Lieberman 44135.1.1 410 s t 3.430.2.7 Hospit a .3.039754 l .8 2020-08-18 2020-08-18 Travel 1.2.840.1 1.2.106.113 4859 065328 Methodi 00:00:00 00:00:[address] 3.430.2.7 0.2.7.3.698 Ho spita .3.052190 084.8 l .8 2020-08-15 2020-08-15 Abstract Clark, 1.2.840.1 [id number] 45474 Methodi 00:00:00 00:00:[address] 3.430.2.7 Hospit a .3.180944 l .8 2020-08-13 2020-08-13 [facility] [id number] 6593 [place] 00:00:00 00:00:00 RAY [address] 2020-07-02 2020-08-06 Clinical 1.2.840.1 [id number] 33476 25184 Methodi 10:40:46 01:45:[address] 3.430.2.7 Hospit a .3.829997 l .8 2020-07-30 2020-07-30 Travel 1.2.840.1 1.2.347.294 6247 658468 Methodi 00:00:00 00:00:[address] 3.430.2.7 0.2.7.3.698 Ho spita .3.755820 084.8 l .8 2020-07-28 2020-07-28 Office Cadealeshia, 1.2.840.1 [id number] 84253 04060 Methodi 08:35:45 10:11:52 Visit Ray 84944.1.[address] 3.430.2.7 Hospit a .3.373777 l .8 2020-07-28 2020-07-28 Outpatient YAZMIN, [facility] [id number] 0231 [place] 00:00:00 00:00:00 RAY [address] 2020-07-28 2020-07-28 Telephone Clark, 1.2.840.1 [id number] 2099 [id number] Methodi 00:00:00 00:00:[address] 3.430.2.7 Hospit a .3.142298 l .8 2020-07-28 2020-07-28 Travel 1.2.840.1 1.2.651.953 4407 812854 Methodi 00:00:00 00:00:[address] 3.430.2.7 0.2.7.3.698 Ho spita .3.150665 084.8 l .8 2020-07-25 2020-07-25 Telephone Carol Ann, 1.2.840.7 [id number] Methodi 00:00:00 00:00:00 Sarai CorbinChelsie 01266.1.1 314 s t 3.430.2.7 Hospit a .3.299029 l .8 2020-07-25 2020-07-25 Travel 1.2.840.1 1.2.009.741 4478 933196 Methodi 00:00:00 00:00:[address] 3.430.2.7 0.2.7.3.698 Ho spita .3.382773 084.8 l .8 2020-07-23 2020-07-23 Clinical Trem[place]ne, 1.2.840.1 [id number] 46255 79113 Methodi 08:39:40 08:44:40 Support Omid 73913.1.[address] P. 3.430.2.7 Hospit a .3.235359 l .8 2020-07-23 2020-07-23 Outpatient TREMAYNE, [facility] [id number] [address] [place] 00:00:00 00:00:00 OMID [address] 2020-07-23 2020-07-23 Travel 1.2.840.1 1.2.064.116 6960 [id number] Methodi 00:00:00 00:00:[address] 3.430.2.7 0.2.7.3.698 Ho spita .3.351378 084.8 l .8 2020-07-11 2020-07-11 Travel 1.2.840.1 1.2.108.419 2500 469697 Methodi 00:00:00 00:00:[address] 3.430.2.7 0.2.7.3.698 Ho spita .3.170014 084.8 l .8 2020-07-02 2020-07-02 Outpatient [facility] [id number] [address] [place] 00:00:00 00:00:[address] 2020-07-02 2020-07-02 Telephone Yazmin 1.2.840.7 [id number] 21 [id number] Methodi 00:00:00 00:00:[address] 3.430.2.7 Hospit a .3.757999 l .8 2020-07-02 2020-07-02 Travel 1.2.840.1 1.2.578.608 7105 803042 Methodi 00:00:00 00:00:[address] 3.430.2.7 0.2.7.3.698 Ho spita .3.267732 084.8 l .8 2020-06-23 2020-06-23 Office Yazmin, 1.2.840.1 [id number] 65674 46895 Methodi 09:36:17 11:00:44 Visit Ray 46080.1.[address] 3.430.2.7 Hospit a .3.025116 l .8 2020-06-23 2020-06-23 Outpatient YAZMIN, [facility] [id number] [address] [place] 00:00:00 00:00:00 RAY [address] 2020-06-23 2020-06-23 Telephone Rodas, 1.2.840.1 [id number] 2099 [id number] Methodi 00:00:00 00:00:[address] 3.430.2.7 Hospit a .3.480845 l .8 2020-06-23 2020-06-23 Travel 1.2.840.1 1.2.603.732 6844 315965 Methodi 00:00:00 00:00:[address] 3.430.2.7 0.2.7.3.698 Ho spita .3.522217 084.8 l .8 2020-06-09 2020-06-09 Telephone Yazmin, 1.2.840.3 [id number] 21 [id number] Methodi 00:00:00 00:00:[address] 3.430.2.7 Hospit a .3.659157 l .8 2020-06-06 2020-06-06 Refill Quinn, 1.2.840.1 [id number] 188241 9645 Methodi 00:00:00 00:00:00 Eh Lemus 70939.1.[address] 3.430.2.7 Hospit a .3.245366 l .8 2020-06-03 2020-06-03 Telephone Yazmin, 1.2.840.3 [id number] Methodi 00:00:00 00:00:[address] 3.430.2.7 Hospit a .3.833581 l .8 2020-06-02 2020-06-02 Telephone Yazmin, 1.2.840.9 [id number] Methodi 00:00:00 00:00:[address] 3.430.2.7 Hospit a .3.270497 l .8 2020-05-13 2020-05-13 Orders [facility], 1.2.840.1 [id number] 2099 [id number] Methodi 00:00:00 00:00:00 Only Historical 02986.1.1 [address] 3.430.2.7 Hospit a .3.350288 l .8 2020-05-09 2020-05-09 Telephone [facility], 1.2.840.1 [id number] Methodi 00:00:00 00:00:00 Sarai Corbin. 01919.1.1 660 [address] t 3.430.2.7 Hospit a .3.159561 l .8 2020-05-09 2020-05-09 Telephone Yazmin, 1.2.840.1 [id number] Methodi 00:00:00 00:00:[address] 3.430.2.7 Hospit a .3.372555 l .8 2020-05-08 2020-05-08 Telephone Yazmin, 1.2.840.4 [id number] Methodi 00:00:00 00:00:[address] 3.430.2.7 Hospit a .3.547441 l .8 2020-05-07 2020-05-07 Telephone Yazmin, 1.2.840.2 [id number] Methodi 00:00:00 00:00:[address] 3.430.2.7 Hospit a .3.990503 l .8 2020-05-05 2020-05-05 [facility], 1.2.840.2 [id number] 21 [id number] Methodi 00:00:00 00:00:[address] 3.430.2.7 Hospit a .3.044492 l .8 2020-04-25 2020-05-03 [facility], 1.2.840.1 [id number] 2100 [id number] Methodi 17:33:00 13:39:00 Encounter Ray [address]008.1.[address] 3.430.2.7 Hospit a .3.377741 l .8 2020-04-25 2020-05-03 [facility] 495 [id number] [address] [place] 00:00:00 00:00:00 RAY [address] 2020-04-28 2020-04-28 Anesthesia Tomas Pinon 1.2.840.1 [id number] Methodi 13:38:00 19:40:00 Event Justine Catalan 15051.1.[address] 3.430.2.7 Hospit a .3.648379 l .8 2020-04-28 2020-04-28 [facility], 1.2.840.1 [id number] 78458 31162 Methodi 13:00:00 17:10:[address] 3.430.2.7 Hospit a .3.894745 l .8 2020-04-25 2020-04-25 [facility], 1.2.840.1 [id number] 2100 801873 Methodi 10:00:00 17:32:00 Encounter Ray [address].1.[address] 3.430.2.7 Hospit a .3.743114 l .8 2020-04-25 2020-04-25 [facility], 1.2.840.1 [id number] 30792 38150 Methodi 11:43:50 13:44:26 Visit Ray 68794.1.[address] 3.430.2.7 Hospit a .3.728390 l .8 2020-04-25 2020-04-25 Outpatient YAZMIN [facility] [id number] [address] 00:00:00 00:00:00 RAY [address] 2020-04-25 2020-04-25 Outpatient YAZMIN [facility] [id number] 00:00:00 00:00:00 RAY [address] 2020-04-25 2020-04-25 Travel 1.2.840.1 1.2.985.631 2230 [id number] Methodi 00:00:00 00:00:[address] 3.430.2.7 0.2.7.3.698 Ho spita .3.679733 084.8 l .8 2020-04-24 2020-04-24 Prep for [facility], 1.2.840.1 [id number] 2 [id number] Methodi 00:00:00 00:00:00 Surgery Sarai Lieberman 48179.1.1 524 s t 3.430.2.7 Hospit a .3.274877 l .8 2020-04-22 2020-04-22 Telephone [facility], 1.2.840.1 [id number] Methodi 00:00:00 00:00:[address] 3.430.2.7 Hospit a .3.004415 l .8 2020-04-22 2020-04-22 Travel 1.2.840.1 1.2.482.078 6551 [id number] Methodi 00:00:00 00:00:[address] 3.430.2.7 0.2.7.3.698 Ho spita .3.956213 084.8 l .8 2020-04-21 2020-04-21 Emergency Pete Tapia 1.2.840.1 [id number] 2 [id number] Methodi 06:51:00 10:43:[address] 3.430.2.7 Hospit a .3.688659 l .8 2020-04-21 2020-04-21 Emergency PETE TAPIA [facility] 064 [id number] [address] [place] 00:00:00 00:00:[address] 2020-04-21 2020-04-21 Orders Meisenbach, 1.2.840.1 [id number] Methodi 00:00:00 00:00:00 Only Sarai Corbin. 85816.1.1 550 s t 3.430.2.7 Hospit a .3.411674 l .8 2020-04-16 2020-04-16 Telephone Meisenbach, 1.2.840.1 [id number] Methodi 00:00:00 00:00:00 Sarai M. 09392.1.1 673 s t 3.430.2.7 Hospit a .3.269592 l .8 2020-04-10 2020-04-10 Telephone Yazmin, 1.2.840.8 [id number] Methodi 00:00:00 00:00:[address] 3.430.2.7 Hospit a .3.560330 l .8 2020-04-07 2020-04-07 Telephone Nahum, 1.2.840.1 [id number] 2100 [id number] Methodi 00:00:00 00:00:[address] 3.430.2.7 Hospit a .3.986944 l .8 2020-04-01 2020-04-01 Orders Provider, 1.2.840.1 [id number] 2100 [id number] Methodi 00:00:00 00:00:00 Only Historical 22574.1.1 049 s t 3.430.2.7 Hospit a .3.353138 l .8 2020-03-31 2020-03-31 Travel 1.2.840.1 1.2.318.825 5605 [id number] Methodi 00:00:00 00:00:[address] 3.430.2.7 0.2.7.3.698 Ho spita .3.169404 084.8 l .8 2020-03-27 2020-03-27 Telephone Shanell Mitchell 1.2.840.7 [id number] 21 [id number] Methodi 00:00:00 00:00:00 Tomy 11492.1.1 6 3.430.2.7 [facility]3.514121 l .8 Results Test Description Test Time Test Comments Results Result Sourc e Comments LAB ONLY [facility] 4 InterpretationInte [facility] 23:21:19 rpretation/Recomme Branch ndations:Molecular NAAT Tests for Active Infection with the SARS-CoV-2 Virus:The patient has currently tested negative for the SARS-CoV-2 virus that causes COVID-19 illness. This most likely indicates that the patient does not have an active infection with the SARS-CoV-2 virus. However, infection is not completely ruled out as the false negative rate for molecular NAAT testing using a nasopharyngeal sample can be up to 30%, mostly dependent on the timing of sample collection in relation to illness onset and any deficiencies in sampling techniques. If the patient has symptoms concerning for COVID-19 illness, a repeat NAAT test (PCR, Rapid ID Now, etc.) should be performed, at which time the SARS-CoV-2 virus - if present - may have reached a detectable viral load (usually peaking by the end of the first week of symptoms). Tests for IgM and/or IgG Antibodies to the SARS-CoV-2 Virus:Testing for IgM and IgG antibodies approximately 3 weeks after illness onset will likely indicate if the patient has produced antibodies to the SARS-CoV-2 virus. However, some patients may take longer to develop detectable antibodies, while others infected with SARS-CoV-2 may never develop antibodies, particularly those who have had mild or asymptomatic illness. Of note, if the patient has been vaccinated earlier than 1-2 weeks prior to antibody testing, any positive SARS-CoV-2 IgG antibody result is likely due to vaccination. The specific duration and strength of immunity from SARS-CoV-2 IgG antibodies is highly variable between individuals and is dependent on a variety of factors, including infection vs. vaccination response, initial infection severity, the strength of the patient's own immune system, and the variants to which the patient has been exposed. ? Interpretation Result Comments:These interpretation comments are based upon all COVID-19 testing the patient has had at [facility], including molecular NAAT testing (more commonly known as PCR testing and Rapid ID Now testing) and antibody testing. It does not take into account any testing that a patient has had outside of the [facility] medical record. [facility] LABORATORY SERVICESCOVID NjmxpdbMSBI-ZoL-3 NAAT (no units) ? ? Date ? Value ? 01/02/2021 ? Not Detected ? [facility] COVID-19 (MOLECULAR TESTING 2021-01-03 04:40:30 NUCLEIC ACID AMPLIFICATION) Test Item Value Reference Range Interpretation Comme nts SARS-CoV-2 NAAT (test code = Not Detected Not Detected 04152-9) KYLE (test code = KYLE) artandseek Fusion SARS-CoV-2 Assay is a real-time RT-PCR test intended for the qualitative detection of RNA from SARS-CoV-2 from nasopharyngeal (SKOOG OPERATOR) specimens. It is used under Emergency Use Authorization (EUA) by FDA. A positive result is indicative of the presence of SARS-CoV-2 RNA. ?Clinical correlation with patient history and other diagnostic information is necessary to determine patient infection status. A negative (Not Detected) result does not preclude SARS-CoV-2 infection. Clinical correlation with patient history and other diagnostic information should be used in patient management decisions. Invalid: Unable to generate a valid test result on this specimen. Please collect a new specimen for repeat patient testing if clinically indicated. Lab Interpretation (test code = Normal 67583-8) [facility] rookz7065-26-76 04:35:05 Test Item Value Reference Interpretation Comments Range Adenovirus 40/41 PCR Not Detected Specime n (test code = 7113) Informati onSpecimen Source: StoolSp ecimen Site: Nonpreser anthony Astrovirus PCR (test Not Detected code = 4790) Campylobacter PCR Not Detected (test code = 7114) Clostridioides Not Detected difficile PCR (test code = 7115) Cryptosporidium PCR Not Detected (test code = 7116) Cyclospora Not Detected cayetanensis PCR (test code = 7117) Enteroaggregative E Not Detected coli PCR (test code = 4784) Entamoeba histolytica Not Detected PCR (test code = 7118) Enteroinvasive E coli Not Detected PCR (test code = 4788) Enteropathogenic E Not Detected coli PCR (test code = 4785) Norovirus PCR (test Not Detected code = 7119) Plesiomonas Not Detected shigelloides PCR (test code = 4782) Rotavirus PCR (test Not Detected code = 6052147) Salmonella PCR (test Not Detected code = 4783) Sapovirus PCR (test Not Detected code = 4791) Enterotoxigenic E coli Not Detected PCR (test code = 4786) Shigatoxin producing E Not Detected coli PCR (test code = 4787) E coli O157 PCR (test Not Reported code = 7120) Vibrio PCR (test code Not Detected = 7121) Vibrio cholerae PCR Not Detected (test code = 7122) Yersinia Not Detected enterocolitica PCR (test code = 7123) Giardia lamblia PCR Not Detected (test code = 7124) [facility] [id number] 19:17:40EXAMINATION: XR ABDOMEN 1 VW CLINICAL HISTORY: R19.7 Diarrhea unspecified, R14.0 Abdominal distension (gaseous), abdominal bloating COMPARISON: 04/30/2020 IMPRESSION:1.Moderate scattered stool within the colon. No bowel obstruction. Osseous structures are stable. Cholecystectomy clips are noted. [id number] Interface, Radiology Results Incoming - 12/08/2020 2:20 PM CDT EXAMINATION: XR ABDOMEN 1 VWCLINICAL HISTORY: R19.7 Diarrhea unspecified, R14.0 Abdominal distension (gaseous), abdominal bloatingCOMPARISON: 04/30/2020IMPRESSION:1.Moderate scattered stool within the colon. No bowel obstruction. Osseous structures are stable. Cholecystectomy clips are noted.[id number] CenterCD4 SUBSET [id number] 17:59:25 Test Item Value Reference Range Interpretation Comments CD4 % (test code = 39 % 31-60 8123-2) CD4 Absolute (test code = See_Comment [ Automated message] 04201-5) The system [employer] generated this result transmitted ref erence range: 410-1,59 0 Cells/?L. The reference range was not used to int erpret this result as normal/abnormal . Lab Interpretation (test Normal code = 90212-4) [facility] HospitalHUELLENDALE IMMUNODEFICIENCY VIRUS 1 (HIV-1) BY QUANTITATIVE [id number] 21:59:29 Test Item Value Reference Range Interpretation Comments HIV-1 Quantitative <30 Not Detected H NAAT - copies/mL (test Copies/mL code = 47911-5) HIV-1 Quantitative Detected, not Not Detected A Interpretation (test Quantifiable code = 4331267336) KYLE (test code = KYLE) The Aptima HIV-1 Quant assay is an FDA-approved nucleic acid amplification test (NAAT) for the quantitation of human immunodeficiency virus type 1 (HIV-1) RNA in human plasma from HIV-1 infected individuals. ?It is intended for use as an aid in monitoring the effects of antiretroviral treatment. ?It is not approved for use as a donor screening test for HIV-1 or as a diagnostic test to confirm the presence of HIV-1 infection. The quantitative range of this assay is 1.47 - 7.00 log copies/mL or 30 - 10,000,000 copies/mL. An interpretation of "Not Detected" does not rule out the presence of inhibitors in the patient specimen or HIV-1 RNA concentration below the level of detection of the test. ?Care should be taken when interpreting any single viral load determination. Detected, not Quantifiable: HIV-1 RNA detected, but at a level below 30 copies/mL (1.47 log copies/mL). ?HIV-1 RNA concentration is below the lower limit of quantitation of the assay. Indeterminate: Error indicated in the generation of the result. ?Please submit a new specimen for repeat testing if clinically indicated. Lab Interpretation Abnormal (test code = 44669-0) [facility] HospitalGLYCOSYLATED HEMOGLOBIN (A1C)2020-12-02 17:09:18 Test Item Value Reference Range Interpretation Comments HGB A1C (test code = 6.1 % 4.0-5.7 H 4548-4) KYLE (test code = KYLE) Reference RangesNormal: <5.7%Prediabetes: 5.7 - 6.4%Diabetes: > 6.5% Lab Interpretation (test Abnormal code = 97466-8) [facility] METABOLIC PANEL (NA, K, CL, CO2, GLUCOSE, BUN, CREATININE, CA)2020-12-02 16:42:23 Test Item Value Reference Range Interpretation Comments NA (test code = 140 mmol/L 135-145 4467039258) K (test code = 4.8 mmol/L 3.5-5.0 8268434323) CL (test code = 106 mmol/L 98-108 1418119900) CO2 TOTAL (test code = 28 mmol/L 23-31 2547258903) AGAP (test code = 2-16 0004603781) BUN (test code = 25 mg/dL 7-23 H 3202173573) GLUCOSE (test code = 101 mg/dL 70-110 2238657293) CREATININE (test code = 0.89 mg/dL 0.50-1.04 1320538402) CALCIUM (test code = 9.0 mg/dL 8.6-10.6 4357477469) eGFR (test code = mL/min/1.73m2 8439873529) KYLE (test code = KYLE) Association of Glomerular Filtration Rate (GFR) and Staging of Kidney Disease* + --+ --+ ------+| GFR (mL/min/1.73 m2) ?| With Kidney Damage ?| ?Without Kidney Damage+ --------+ --------+ +| ?>90 ?| ?Stage one ?| ? Normal ?+ ---+ ---+ -------+| ?60-89 ?| ?Stage two ?| ? Decreased GFR ? + --+ --+ ------+| ?30-59 ?| ?Stage three ?| ? Stage three ? + --+ --+ ------+| ?15-29 ?| ?Stage four ? | ? Stage four ?+ ---+ ---+ -------+| ?<15 (or dialysis) ? ?| ?Stage five ? | ? Stage five ?+ ---+ ---+ -------+ *Each stage assumes the associated GFR level has been in effect for at least three months. ?Stages 1 to 5, with or without kidney disease, indicate chronic kidney disease. Notes: Determination of stages one and two (with eGFR >59mL/min/1.73 m2) requires estimation of kidney damage for at least three months as defined by structural or functional abnormalities of the kidney, manifested by either:Pathological abnormalities or Markers of kidney damage (including abnormalities in the composition of the blood or urine or abnormalities in imaging tests). Lab Interpretation Abnormal (test code = 50981-8) [facility] HospitalGALV ONLY - VAGINAL PATHOGENS BY NUCLEIC ACID [id number] 01:35:21 Test Item Value Reference Range Interpretation Comments Trichomonas vaginalis Negative Negative (test code = 1716506071) Izabel species (test Negative Negative code = 2178558794) Izabel glabrata (test Negative Negative code = 86466-0) Bacterial Vaginosis Negative Negative (test code = 90543-0) KYLE (test code = KYLE) Reliable results are dependent on adequate specimen collection. This test detects Trichomonas vaginalis, Izabel glabrata, and other Izabel species (C. albicans, C. parapsilosis, C. dubliniensis, and C. tropicalis). ?The assay does not differentiate among organisms in the Izabel species group. The Bacterial Vaginosis result is determined based on relative amounts of the following target organisms: Lactobacillus (L. gasseri, L. crispatus, and L. jensenii), Gardnerella vaginalis, and Atopobium vaginae. ?A single qualitative result is generated. ?This assay does not report individual organisms. A positive result obtained from a patient after therapeutic treatment cannot be interpreted as indicating the presence of viable organisms. ?For patients on whom a false positive result may have adverse psychosocial impact, retesting is advised. Indeterminate: Unable to generate a valid test result on this specimen. ?Please submit a new specimen for repeat testing if clinically indicated. This testing has not been validated for medico-legal purposes (sexual abuse in lizet-pubertal and pre-pubertal children, sexual assault, and legal cases). Results from this testing should be interpreted in conjunction with other laboratory and clinical data available to the clinician. Lab Interpretation Normal (test code = 20342-1) [facility] [place] < 1 [id number] 19:41:02 EXAMINATION: OR FL < 1 HOUR C-arm fluoroscopy was requested in OR. Location: [facility] OR room 6 Procedure: EGD WITH BOTOX INJECTION INTO THE PYLORUS, ENDOFLIP, ON TABLE ESOPHAGRAM (N/A ) Start: 1140 End:1222 Fluoro Time: .19sec Dose: 7.8mGy Tech: A.B IMPRESSION: Intraoperative fluoroscopic images. Radiologist was not present during the examination.Separate operative report will be issued by the physician performing the procedure. [id number] Interface, Radiology Results Incoming - 10/08/2020 2:44 PM CDT EXAMINATION: OR FL < 1 HOURC- arm fluoroscopy was requested in OR. Location: [facility] OR room 6 Procedure: EGD WITH BOTOX INJECTION INTO THE PYLORUS, ENDOFLIP, ON TABLE ESOPHAGRAM (N/A ) Start: 1140 End:1222 FluoroTime: .19sec Dose: 7.8mGy Tech: A.BIMPRESSION:Intraoperative fluoroscopic images. Radiologist was not present during the examination.Separate operative report will be issued by the physician performingthe procedure.[id number] 2020-09-08 19:30:47 Test Item Value Reference Range Interpretation Comments Case number (test [id number] code = 6387232) Surgical pathology See link below for PDF report (test code = Lab Report 2255) Result status (test This is Supplemental code = 5798533) Report for [id number] [facility] 1 Vw Fnbpjolc4284-65-40 23:06:58EXAMINATION: XR CHEST 1 VW PORTABLE HISTORY: 65 years old Female. Z98.890 Other specified postproced ural states. COMPARISON: Chest radiograph 04/30/2020, CT chest 08/21/2020 IMPRESSION: Minimal streaky interstitial opacities in the left greater than right lung, possibly trace pulmonary vascular congestion. Mild linear atelectasis in the left mid and left lower lung. No confluent consolidation. No pleural effusion. No pneumothorax. Cardiomediastinal silhouette is enlarged, similar to prior. Bilateral shoulder arthroplasties. [facility]-[id number] Interface, Radiology Results Incoming - 09/06/2020 6:09PM CDT EXAMINATION: XR CHEST 1 VW PORTABLE HISTORY: 65 years old Female. Z98.890 Other specified postprocedural states.COMPARISON: Chest radiograph 04/30/2020, CT chest 08/21/2020IMPRESSION:Minimal streaky interstitial opacities in the left greater than right lung, possibly trace pulmonary vascular congestion. Mild linear atelectasis in the left mid and left lower lung. No confluent consolidation. No pleural effusion. No pneumothorax.Cardiomediastinal silhouette is enlarged, similar to prior.Bilateral shoulder arthroplasties.[facility]ALESTERL-[id number] [facility]2021-04-16 16:47:23Kirit Flood MD 09/05/2020 11:48 [address]MA[address] Location: OR Performed by: anesthesia residentAnesthesiologist: Kirit Flood MDAuthorized by: Kirit Flood MD Urgency: ElectiveDifficult Airway: No Preoxygenated with 100% O2: Yes C-spine Precautions Maintained Throughout: Yes Mask Ventilation: Easy maskFinal Airway Type: Endotracheal airwayFinal Endotracheal Airway: ETTCuffed: Yes Technique Used: Direct laryngoscopyDevices/Methods Used in Placement: Intubating styl etBlade Type: MillerLaryngoscope Blade/Videolaryngoscope Blade Size: 2ETT Size (mm): 7.0Cuff at minimum occlusion pressure: Yes Measured from: GumsETT to Gums (cm): 21Placement Verified by: CO2 detection and direct visualization Laryngoscopic view: Grade I - full view of glottisRapid Sequence Induction (RSI): No Modified RSI: Yes Number of Attempts at Approach: [address] [place] [address] 12 [id number] 23:21:56 Test Item Value Reference Range Interpretation Comments Ventricular rate (test code = 253) QRSD interval (test code = 260) QT interval (test code = 264) QTC interval (test code = 265) P axis 1 (test code = 267) QRS axis 1 (test code = 268) T wave axis (test code = 270) EKG impression (test Atrial code = 273) fibrillation-Voltage criteria for left ventricular hypertrophy-ST & T wave abnormality, consider anterior ischemia-Abnormal ECG- [facility] qualitative [id number] 22:48:41 Test Item Value Reference Range Interpretation Comments Interpretation (test Negative results do code = 6239455) not preclude 2019-nCoV infection and should not be used as the sole basis for treatment or other patient management decisions. Negative results must be combined with clinical observations, patient history, and epidemiological information. COVID-19 qualitative Not-Detected Not-Detected RT-PCR result (test code = 81207-4) COVID-19 qualitative See link below for C ase Number: RT-PCR (test code = PDF Lab Report [id number]) [facility] YdiveuwvIJES-XgC-6 (COVID-19) RNA [Presence] in Respiratory specimen by FRANCISCA with probe [id number] 17:48:30 Test Item Value Reference Range Interpretation Comments SARS-CoV-2 (COVID-19) RNA Not detected Not-Detected [Presence] in Respiratory specimen by FRANCISCA with probe detection (test code = 94126-0) [id number] 16:31:00 Test Item Value Reference Range Interpretation Comments POC Activated Clotting Time (test code 153 s = POC Activated Clotting Time) [facility]FdonpwpJQHMKXQPHO4759-15-56 16:31:00 Test Item Value Reference Range Interpretation Comments POC Activated Clotting Time (test code 153 s = POC Activated Clotting Time) [facility] HospitalAwiceaiBMBAPNXAWY4785-96-00 16:31:00 Test Item Value Reference Range Interpretation Comments POC Activated Clotting Time (test code 153 s = POC Activated Clotting Time) [facility] HospitalSkvphetBDOURDBATN3208-29-31 16:31:00 Test Item Value Reference Range Interpretation Comments POC Activated Clotting Time (test code 153 s = POC Activated Clotting Time) [facility] HospitalXkdzbtnPBULXBZNAR1551-94-67 14:37:00 Test Item Value Reference Range Interpretation Comments POC Activated Clotting Time (test code 454 s = POC Activated Clotting Time) [facility] HospitalYjbhbhgOIEOJVUFTZ1076-58-48 14:37:00 Test Item Value Reference Range Interpretation Comments POC Activated Clotting Time (test code 454 s = POC Activated Clotting Time) [facility] HospitalZrjemckSXVZIHHVGG4211-18-84 14:37:00 Test Item Value Reference Range Interpretation Comments POC Activated Clotting Time (test code 454 s = POC Activated Clotting Time) [facility] HospitalBwkpfyyLYONHYHNQV4779-30-28 14:37:00 Test Item Value Reference Range Interpretation Comments POC Activated Clotting Time (test code 454 s = POC Activated Clotting Time) [facility] CenterOwjlndtBIKMLSZAHA1966-27-47 14:13:00 Test Item Value Reference Range Interpretation Comments POC Activated Clotting Time (test code 354 s = POC Activated Clotting Time) [facility]wallDiiyomgDGKUYHMCLH8902-90-29 14:13:00 Test Item Value Reference Range Interpretation Comments POC Activated Clotting Time (test code 354 s = POC Activated Clotting Time) [facility] RockwallOsjczvsYXBAXWFZCR1605-30-12 14:13:00 Test Item Value Reference Range Interpretation Comments POC Activated Clotting Time (test code 354 s = POC Activated Clotting Time) [facility] CenterDuzhnjaYLHBRMOBDT8148-58-06 14:13:00 Test Item Value Reference Range Interpretation Comments POC Activated Clotting Time (test code 354 s = POC Activated Clotting Time) [facility] BANK [id number] 10:37:00Negative (08/29/20 5:37 AM) [facility] HermannCHEM ENFQC4331-92-97 10:37:12826Dwpiunwd HermannCHEM PANEL 2020-08-29 10:37:0028[facility] HermannCHEM XWVPG6069-90-15 10:37:001.01[facility] HermannCHEM PXZEV5050-20-24 10:37:03870Ycyhltxs HermannCHEM ILYYO7909-87-60 10:37:003.8[facility] HermannCHEM DSQYS0327-55-06 10:37:94062Apkzmzry HermannCHEM ZKHAT8385-71-33 10:37:0028[facility] HermannCHEM AEZMY2287-79-54 10:37:009.8 [facility] HermannCHEM GRXZE7163-48-71 10:37:0011.8[facility] HermannCHEM PANEL 2020-08-29 10:37:0059[facility] HermannCHEM TEFZZ9082-86-94 10:37:002.9[facility] NjlybdyIVPNFTJWLQ7575-74-36 10:37:006.8[facility] CmmeglcBNFHEFUVVH2754-11-73 10:37:004.47[facility] AysdlabSRGFHUIGHB1988-06-66 10:37:0010.6[facility] Marty ECSWNIGUND1007-73-13 10:37:0034.0[facility] DatmwfgOQAYWYSHPX7915-13-11 10:37:00 76.1[facility] YgnmsqyDCYPUMKCVR9736-74-97 10:37:00 Test Item Value Reference Range Interpretation Comments MCH (test code = MCH) 23.8 pg 27.0-31.0 [facility] WigyzjqUYKUTEYWQW7768-33-01 10:37:0031.3[facility] HermannHEMATOLOGY 2020-08-29 10:37:0018.2[facility] IlmmoqdFWJPMEGNKA4261-13-29 10:37:92908Rrzpbcnc DrkzhksMYYOXBDZUR3798-89-48 10:37:007.5[facility] EkxwwlqPKQIJJYLJX7772-78-67 10:37:00 Test Item Value Reference Range Interpretation Comments PT (test code = PT) 12.8 s 12.0-14.7 Memorial YatfgqrFFXIGGRFPZ5886-32-30 10:37:00 Test Item Value Reference Range Interpretation Comments INR (test code = INR) 0.97 1 0.85-1.17 [facility] LocrimtBCOALVZSHU3492-04-55 10:37:00 Test Item Value Reference Range Interpretation Comments PTT (test code = PTT) 25.0 s 22.9-35.8 Memorial VfxvqwcSMIPQQSNFH7884-42-41 10:37:0070.5[facility] HermannHEMATOLOGY 2020-08-29 10:37:0018.8[facility] ZeyuettIFXPYZUWMU9883-91-24 10:37:009.5[facility] EoqenukEFLRIQWVHB5982-20-65 10:37:000.9[facility] PpxyxvgFIJTYMXDGC5011-17-10 10:37:000.3[facility] UfpgyoeOGJEWCRBCJ3578-29-58 10:37:004.8[facility] Marty UZEZWZMZGQ2880-58-52 10:37:001.3[facility] YjvgvrhRNKDFAZMIZ7230-53-03 10:37:000.6 [facility] OshiqtsXRIGYHJGEQ0621-95-96 10:37:000.1[facility] HermannHEMATOLOGY 2020-08-29 10:37:001+ *ABN*(08/29/20 5:37 AM)[facility] KsmcvwbTDCXIMTGXD9774-16-81 10:37:00Not Detected (08/29/20 5:37 AM)[facility] HermannBLOOD BANK RESULTS 2020-08-29 10:37:00Negative (08/29/20 5:37 AM)[facility] HermannCHEM NDVGB2300-08-52 10:37:24636Nmwweudp HermannCHEM ELDWS1304-38-93 10:37:0028[facility] HermannCHEM QIPFZ5955-37-23 10:37:001.01[facility] HermannCHEM JWQXC0293-90-34 10:37:68734 [facility] HermannCHEM IKMOQ6440-34-05 10:37:003.8[facility] HermannCHEM PANEL 2020-08-29 10:37:75537Wogukqnf HermannCHEM NOMGM8143-95-73 10:37:0028[facility] HermannCHEM XIZUE7067-96-04 10:37:009.8[facility]annCHEM LOFLF5286-92-10 10:37:0011.8[facility]annCHEM MHBNY3432-42-62 10:37:0059[facility]annCHEM IKPUK7409-08-70 10:37:002.9[facility] JyjpbwiODTVJLQSZL8076-29-60 10:37:006.8 [facility] FzqewfnHNCNWZRJYD2884-32-70 10:37:004.47[facility]annHEMATOLOGY 2020-08-29 10:37:0010.6[facility] RsfrwnqWAUZYFSYSI8459-15-23 10:37:0034.0[facility] FphfyteJFFXKJZCIJ5852-62-63 10:37:0076.1[facility] CdfvftrWLIZHGRESC1442-19-43 10:37:00 Test Item Value Reference Range Interpretation Comments MCH (test code = MCH) 23.8 pg 27.0-31.0 [facility] NjghlnmBPJSXXXRIL0435-92-29 10:37:0031.3[facility]annHEMATOLOGY 2020-08-29 10:37:0018.2[facility] PujylezUEUXNEIZAK6176-88-31 10:37:29337Hoyikgrs RoslfjrOYVQFPYFDE2722-48-91 10:37:007.5[facility] CfqhgqgWHRNTVONKI8439-72-22 10:37:00 Test Item Value Reference Range Interpretation Comments PT (test code = PT) 12.8 s 12.0-14.7 [facility] UywtrmwDFQPDBNIMN2026-28-50 10:37:00 Test Item Value Reference Range Interpretation Comments INR (test code = INR) 0.97 1 0.85-1.17 [facility] QhabyhpDCBKBEVPTV3138-67-23 10:37:00 Test Item Value Reference Range Interpretation Comments PTT (test code = PTT) 25.0 s 22.9-35.8 [facility] FbumfhySPYXIYMBYW0126-41-93 10:37:0070.5[facility]annHEMATOLOGY 2020-08-29 10:37:0018.8[facility] SgregieEGBPUHEMTN0366-13-25 10:37:009.5[facility] IozmaybUKSCHMHXPJ9955-90-44 10:37:000.9[facility] ProarcbKURWMJKJOH0581-61-35 10:37:000.3[facility] XlsswijUUGESRDBDP7438-80-52 10:37:004.8[facility] IJERBJEMVW9652-77-93 10:37:001.3[facility] GsxieasNUVIUARMLU6046-97-58 10:37:000.6 [facility] IylorjyAWAXEPIERV9408-20-81 10:37:000.1[facility]annHEMATOLOGY 2020-08-29 10:37:001+ *ABN*(08/29/20 5:37 AM)[facility] UjchwbaVNYZJFOOLD5931-98-42 10:37:00Not Detected (08/29/20 5:37 AM)[facility]annCHEM TQBXM6890-14-38 10:37:0028[facility]annCHEM PLTBV8724-74-30 10:37:009.8[facility]annCHEM CKFUO7566-26-00 10:37:0011.8[facility]annCHE[facility] IVJPH7381-90-87 10:37:0059 [facility]ann[facility] OWUVU7615-46-14 10:37:002.9[facility]annHEMATOLOGY 2020-08-29 10:37:006.8[facility] CpylgivBHTNDXUNDZ9763-26-01 10:37:004.47[facility] OuqhtxpRFBTOIYQNU1763-56-41 10:37:0010.6[facility] DvczdixEABFCOYYIJ1242-25-23 10:37:0034.0[facility] VdblnkwLERAODGXVL1642-85-06 10:37:0076.1[facility] RXCVFXTWSB3241-80-79 10:37:00 Test Item Value Reference Range Interpretation Comments MCH (test code = MCH) 23.8 pg 27.0-31.0 [facility] JsudnqqIFVRAOKIWS8681-88-97 10:37:0031.3[facility]annHEMATOLOGY 2020-08-29 10:37:0018.2[facility] GqzcphrFCRFVHYYWG0047-10-38 10:37:73674Ptqpwasm SyfqfapNTNMPAPDWC5812-70-96 10:37:007.5[facility] OlzaefbCSXHDDEZRW2830-16-60 10:37:00 Test Item Value Reference Range Interpretation Comments PT (test code = PT) 12.8 s 12.0-14.7 [facility] IteljvwRZFCVMCBDQ7428-46-63 10:37:00 Test Item Value Reference Range Interpretation Comments INR (test code = INR) 0.97 1 0.85-1.17 [facility] ZgulnfkIGBSTAMAKZ3540-43-88 10:37:00 Test Item Value Reference Range Interpretation Comments PTT (test code = PTT) 25.0 s 22.9-35.8 [facility] IkrcriaPNSVZFSAMU7029-06-12 10:37:0070.5[facility]annHEMATOLOGY 2020-08-29 10:37:0018.8[facility] UedvilzSNMUFPXUVI8157-39-92 10:37:009.5[facility] EglcshyMMUQYRHTHS8700-71-05 10:37:000.9[facility] QqtrzxnYSRYCKLSHI2355-99-20 10:37:000.3[facility] BcmhactKFTFJPKWXT8876-44-47 10:37:004.8[facility] KYNCUALWTY1075-93-17 10:37:001.3[facility] McbsasxJNZTRWPEUO7008-68-93 10:37:000.6 [facility] VfijoagBCQBQWXTMR7220-80-58 10:37:000.1[facility]annHEMATOLOGY 2020-08-29 10:37:001+ *ABN*(08/29/20 5:37 AM)[facility] BcemcrpKEWRIWKUBQ7579-51-03 10:37:00Not Detected (08/29/20 5:37 AM)[facility] HermannBLOOD BANK RESULTS 2020-08-29 10:37:00Negative (08/29/20 5:37 AM)[facility]annCHEM KCMCQ1192-05-49 10:37:72010Rrpycksk HermannCHEM YJSMX6929-67-29 10:37:0028[facility]annCHEM YAAYE4000-39-39 10:37:001.01[facility]annCHEM WBFVG7945-50-69 10:37:44547 [facility]annCHE[facility] JUCLA9931-51-88 10:37:003.8[facility]annCHEM PANEL 2020-08-29 10:37:95365Eqsntrgc HermannCHEM ZWEEA5537-41-73 10:37:0028[facility]annCHEM RAJTD2879-11-89 10:37:009.8[facility]annCHEM CWXDM5419-38-94 10:37:0011.8[facility]annCHEM YSHPG2910-55-25 10:37:0059[facility]annCHEM SMDLV4914-34-19 10:37:002.9[facility] RgooxylYVCOUXUGAH2930-12-34 10:37:006.8 [facility] JcoztpbORDAXEHOHW3340-73-80 10:37:004.47[facility]annHEMATOLOGY 2020-08-29 10:37:0010.6[facility] PofxfzaUCCOOIDTWV6815-18-64 10:37:0034.0[facility] QzmxrdcILCFNWQTAV4785-42-44 10:37:0076.1[facility] ArarntbCIOJUUKGIJ6956-00-37 10:37:00 Test Item Value Reference Range Interpretation Comments MCH (test code = MCH) 23.8 pg 27.0-31.0 [facility] XqxpfxrITIWQHQFDC0814-39-81 10:37:0031.3[facility] HermannHEMATOLOGY 2020-08-29 10:37:0018.2[facility] GyuiptoFQCQZVECTP8918-75-77 10:37:68110Dptravpy BdawbcxOHOZPWZMWY1112-63-68 10:37:007.5[facility] LoyzuoaALCTSQYDBI8247-47-36 10:37:00 Test Item Value Reference Range Interpretation Comments PT (test code = PT) 12.8 s 12.0-14.7 [facility] TfvugmmZPYHIBURDS5068-78-70 10:37:00 Test Item Value Reference Range Interpretation Comments INR (test code = INR) 0.97 1 0.85-1.17 [facility] DwcmwajHZICGHSTWE4606-94-38 10:37:00 Test Item Value Reference Range Interpretation Comments PTT (test code = PTT) 25.0 s 22.9-35.8 [facility] AgyitchRBHIKOSHJN7496-61-42 10:37:0070.5[facility] HermannHEMATOLOGY 2020-08-29 10:37:0018.8[facility] HrczwolXRGZWIXDPJ1197-74-06 10:37:009.5[facility] XyycyiuKZJRVVNXCV7521-38-42 10:37:000.9[facility] CridzfgCZMEXNYNEO8564-97-88 10:37:000.3[facility] XobzcpoRTECYJUAPC1418-98-31 10:37:004.8[facility] BQPIGBGVKL1542-33-41 10:37:001.3[facility] YfthalkTVDRIGWGZO2392-98-20 10:37:000.6 [facility] VmavydbZRHLTQTSVK9777-84-11 10:37:000.1[facility] HermannHEMATOLOGY 2020-08-29 10:37:001+ *ABN*(08/29/20 5:37 AM)[facility] QllsgwqTLTFFHRTBE3775-49-66 10:37:00Not Detected (08/29/20 5:37 AM)[facility] HermannBLOOD BANK RESULTS 2020-08-29 10:37:00Negative (08/29/20 5:37 AM)[facility]annCHEM RFXDA4032-04-33 10:37:25798Sgdezxar HermannCHEM HCVHL5228-80-22 10:37:0028[facility] HermannCHEM INFBK9663-60-84 10:37:001.01[facility] HermannCHEM PTMGC5890-28-91 10:37:93759 [facility]annCHEM CFMUT6249-86-82 10:37:003.8[facility] HermannCHEM PANEL 2020-08-29 10:37:16256Ligntagr HermannNM Gastric Hmiumcjd6815-15-95 23:14:39 PROCEDURE: NM GASTRIC EMPTYING INDICATION: Abdominal bloating. TECHNIQUE: 0.5 mCi of Tc-99m [...] rate, with complete emptying by 4 hours. [facility]-3JH7849NJ6Yw Interface, Radiology Results 08/27/2020 6:17 PM CDTFormatting of this note migh t be different from the original.PROCEDURE: NM GASTRIC EMPTYINGINDICATION: Abdominal [...] 45 and 100 minutes. Delayed images demonstrate completeemptying. IMPRESSION: 1. Moderately to markedly delayed initial gastric emptying rate, with complete emptying by 4 hours. [facility]-[id number]. Luke's Baptist Hospitalscmather hospitalneous referral sowi3932-07-84 21:24:58 Test Item Value Reference Range Interpretation Comments Misc test HIV-1 RNA QUAL PCR name (test code = 2566) Misc test see note Human Immunodef iciency result (test Virus 1 (HIV-1) by code = 1730) Qualitative Back Sewer-M ediated Amplification ( TMA) [facility] test code 9513715 HIV-1 by Qualit ative TMA See Note SOURCE/SPECIMEN PLASMA HIV-1 RNA, QUAL ITATIVE TMA HIV-1 RNA, QL TMA T SKOOG OPERATOR Test Not Performed. Initial testing necessi tated a repeat, but the re was insufficient sa mple to perform repeat. SAMPLE LEFT FOR REPEAT IS 50 uL. NEED 1000 u L TO RUN REPEAT. This te st was performed using the APTIMA(R) HIV-R NA Qualitative Ass ay (Gen-Probe). ======== ======== Te st performed by:[employer] [place] [address] KYLE (test HIVQL - HIV-1 RNA, code = KYLE) Qualitative TMA (FROZEN)NMNet 263 Test Code: 7557140Uriltg: plasma [facility] duplex venous upper qtuautbsj2737-49-53 04:57:00 Vascular Ultrasound Laboratory Upper Extremity Venous Report [address] [place] [address] Pat.Name: LIO WATTS Pat.ID: [id number] St.Date: 04/30/2020 Refer.MD: ELISEO ARCE MD Exam Time: 5:04:00 PM Study Type:UE Venous Age: 9 1955,65Y Sex: FEMALE Sonogrphr: IBIS Espinosa, SANKET Pat. Stat.:Inpatient Room: [place] [address] 2020 Tape Vol: , CPT - 4: 41148 Echo Event ID:[id number] Order ID: [id number] Reason for Study:Arm swelling or pain, DVT suspected. History ofhiatal hernia, esophageal stricture, HIV, HTN, COPD, paroxysmal Afib,ROHAN.Procedures: Colorflow, Grayscale/2D, Pulsed wave DopplerRace: C -------SUMMARY: DUPLEX SCAN OBSERVATIONS Right LeftIJ Normal NormalSubclavian [...] to dressing and bandage.PRELIMINARY FINDINGS1. Total superficial vein thrombosis of the right basilic vein.2. No evidence of deep vein thrombosis of the visualized veins.*Preliminary result reported to ASHLEY Santos @ 7796 on 04/30/20.PHYSICIAN INTERPRETATION Venous examination of the both upper extremities and neck demonstratedno evidence of deep venous thrombosis. Total superficial vein thrombosis of the right basilic vein. FINDINGS: Signed 04/30/2020 10:57 PMHuntersolt Marianna MD, RPVIInterface, Radiology Results In - 04/30/2020 10:58 PM CST Vascular Ultrasound Laboratory Upper Extremity Venous Report [address] [place] [address] Pat.Name: LIO WATTS Pat.ID: [id number] .Date: 04/30/2020 Refer.MD: ELISEO ARCE MD Exam Time: 5:04:00 PM Study Type:UE Venous Age: 9 1955,65Y Sex: FEMALE Sonogrphr: IBIS Espinosa, SANKET Pat. Stat.:Inpatient Room: [place] [address] 2020 Tape Vol: JM, CPT - 4: 80636 Echo Event ID:[id number] Order ID: [id number] Reason for Study:Arm swelling or pain, DVT suspected. History ofhiatalhernia, esophageal stricture, HIV, HTN, COPD, paroxysmal Afib,ROHAN.Procedures: Colorflow, Grayscale/2D, Pulsed wave DopplerRace: C SUMMARY:- DUPLEX SCAN OBSERVATIONS Right LeftIJ Normal NormalSubclavian [...] to dressing and bandage.PRELIMINARY FINDINGS1. Total superficial vein thrombosis of the right basilic vein.2. No evidence of deep vein thrombosis of the visualized veins.*Preliminary result reported to ASHLEY Santos @ 4532 on 04/30/20.PHYSICIAN INTERPRETATION Venous examination of the both upper extremities and neck demonstratedno evidence of deep venous thrombosis. Total superficial vein thrombosis of the right basilic vein. FINDINGS: ------Signed 04/30/2020 10:57 PMFrancis Cabral MD, [facility] 2 Mm0804-62-27 22:21:01EXAMINATION: XR CHEST 2 VW CLINICAL HISTORY: amio gtt COMPARISON: None. FINDINGS: Two views of thechest demonstrate mild cardiomegaly. Pulmonary vasculature is within normal limits. No consolidationor pleural effusion is seen. There is no evidence of pneumothorax. Low lung volume is noted. Bilateral shoulders arthroplasty changes are noted. IMPRESSION: No radiographic evidence of acute cardiopulmonary process or active disease of the chest. 1D2RAD_PS01Hm Interface, Radiology Results Incoming - 04/30/2020 4:24 PM CST EXAMINATION: XR CHEST 2 VWCLINICAL HISTORY: amio gttCOMPARISON: None.FINDINGS:Two views of the chest demonstrate mild cardiomegaly. Pulmonary vasculature is within normal limits.No consolidation or pleural effusion isseen. There is no evidence of pneumothorax. Low lung volume is noted.Bilateral shoulders arthroplasty changes are noted.IMPRESSION:No radiographic evidence of acute cardiopulmonary process or active disease of the chest.1D2RAD_PS01[facility] HospitalMidline Unsuccessful Ctophko2603-36-15 17:14:34ANicole zhang RN 04/30/2020 11:25 AMMidline Unsuccessful Attempt Date/Time: 04/30/2020 11:14 AMPerformed by: Nicole Dailey, RNAuthorized by: Eliseo Arce MD Consent: Consent obtained: Ve rbal Consent given by: Patient Risks discussed: arterial [...] confirmed: Verbally with patient, arm band, provided demogr aphic data and hospital-assigned identification numberPre-procedure details: Hand hygiene: Hand hygiene performed prior to insertion Sterile barrier technique: All elements of maximal sterile technique followed Skin preparation: 2% chlorhexidine Skin preparation agent: Skin preparation agent completely dried prior to procedure Anesthesia (see MAR [...] Assessed Right arm first, Right basilic is non- compressible, switched to left arm, Left basilic vein [...] place a PIV g.20 in lower arm .[facility] XR Abdomen 1 Vw Vczdmlwk5512-07-59 16:20:14EXAMINATION: XR ABDOMEN 1 VW PORTABLE CLINICAL HISTORY: Abdominal pain post op COMPARISON: No prior IMPRESSION:1.Residual barium within the colon throughout. No small bowel obstruction noted. [id number] Interface, Radiology Results - 04/30/2020 10:23 AM CST EXAMINATION: XR ABDOMEN 1 VW PORTABLECLINICAL HISTORY: Abdominalpain post opCOMPARISON: No priorIMPRESSION:1.Residual barium within the colon throughout. No smallbowel obstruction noted.[facility]2GH8909CIYZcbapxaqn Hospital Lmxgpi0135-82-63 20:57:57Carlee Malloy MD 04/28/2020 2:59 PMAirwayPerformed by: Carlee Malloy MDAuthorized by: Carlee Malloy MD Location: ORUrgency: ElectiveDifficult Airway: No Anesthesiologist: Kvng Malloy MDResident/MARKET SURVEY REPRESENTATIVE/AA: Allan Morocho, DOPerformed by: resident/MARKET SURVEY REPRESENTATIVE/AAPreoxygenated vquj513% O2: Yes C-spine Precautions Maintained Throughout: Yes Mask Ventilation: Easy maskFinal Airway Type: Endotracheal airwayFinal Endotracheal Airway: ETTCuffed: Yes Technique Used: Direct laryn goscopyDevices/Methods Used in Placement: Intubating styletInsertion Site: OralBlade Type: MacintoshLaryngoscope Blade/Videolaryngoscope Blade Size: 3ETT Size (mm): 7.0Placement Verified by: CO2 detection Laryngoscopic view: Grade I - full view of glottisRapid Sequence Induction (RSI): No Modified RSI: No Number of Attempts at Approach: 1MMemorial Hermann [facility] KingwoodTransthoracic Echocardiogram Complete, (w Contrast, Strain and 3D if needed)2020-04-28 00:20:00 Echocardiography Report [address]Name: LIO WATTS.ID: [id number] St.Date: 04/27/2020 Refer.MD: ELISEO ARCE MD Exam Time: 2:21:00 PM Study Type:Routine Echo Height: 64in Weight: 213lb BSA: 2.01 m2 Age: 9 1955,65Y Sex: FEMALE BP: 128/89 HR: 102 bpm Sonogrphr: SANKET Perkins Pat. Stat.:Inpatient Room: [facility] Study Status:Final Echo Event ID:[id number] Order ID: [id number] Reason for Study:Atrial FibrillationHistory / Clinical:Hypertension Procedures: [...] estimate PA systolic pressure. MEASUREMENTS: 2DParasternal Long [place] Ao An 2.2 cm LVPWd 1 cm Ao Rtd 3.5 cm Index 1.7 cm/m2 LA Ds 4.6 cm IVSd 1cm RWT 0.43 LVIDd 4.8 cm Index 2.4 [...] LVOT CI 3.1 l/m/m2 Signed 04/27/2020 06:20 PMMomario Martin MDInterface, Radiology Results In - 04/27/2020 6:21 PM CST Echocardiography Report [address] [place] [address] Pat.Name: LIO WATTS Pat.ID: [id number] St.Date: 04/27/2020 Refer.MD: ELISEO ARCE MD Exam Time: 2:21:00 PM Study Type:Routine Echo Height: 64in Weight: 213lb BSA: 2.01 m2 Age: 9 1955,65Y Sex: FEMALE BP: 128/89 HR: 102 bpm Sonogrphr: SANKET Perkins Pat. Stat.:Inpatient Room: [facility] Study Status:Final Echo Event ID:[id number] Order ID: [id number] Reason for Study:Atrial FibrillationHistory / Clinical:Hypertension Procedures: [...] PA systolic pressure.- MEASUREMENTS: ---- 2DParasternal Long [place] Ao An 2.2 cm LVPWd 1 cm [...] SVi 34 ml/m2 LVOT CI 3.1 l/m/m2 [facility] 04/27/2020 06:20 PMMohammed MarielyNico, [facility] HOSPITALethodiSalt Lake Regional Medical CenterUtkymcdrWMTC-XtV-0 (COVID-19) RNA [Presence] in Respiratory specimen by FRANCISCA with probe wetypgohz3055-70-89 21:42:14 Test Item Value Reference Range Interpretation Comments SARS-CoV-2 (COVID-19) RNA Not detected Not-Detected [Presence] in Respiratory specimen by FRANCISCA with probe detection (test code = 31190-8) FL Esophagram Double Hhhrwali8085-98-17 18:07:12EXAMINATION: FL ESOPHAGRAM DOUBLE CONTRAST CLINICAL HISTORY: R13.10 Dysphagia unspecified, K44.9 D iaphragmatic hernia without obstruction or gangrene, Dysphagia unexplained, dysphagia hiatal hernia COMPARISON: Limited comparison with chest CT from April 21, 2020 TECHNIQUE: Esophagram was performed with effervescent granules and barium. FLUOROSCOPIC TIME: 1.5 minutes. NUMBER OF IMAGES: 9 flu oroscopic images. IMPRESSION: No strictures. Normal esophageal mucosa. Nonspecific esophageal dysmotility, with mildly delayed esophageal emptying and scattered nonpropulsive tertiary contraction waves. There is a moderately sized type III hiatal hernia. There was mild spontaneous gastroesophageal reflux. [id number]_PS01 Interface, Radiology Results [facility] - 04/25/2020 12:10 PM CST EXAMINATION: FL ESOPHAGRAM DOUBLE CONTRASTCLINICALHISTORY: R13.10 Dysphagia unspecified, K44.9 Diaphragmatic hernia without obstruction or gangrene,Dysphagia unexplained, dysphagia hiatal herniaCOMPARISON: Limited comparison with chest CT from April 21, 2020TECHNIQUE: Esophagram was performed with effervescent granules and barium.FLUOROSCOPIC TIME: 1.5 minutes.NUMBER OF IMAGES: 9 fluoroscopic images.IMPRESSION:No strictures. Normal esophageal mucosa.Nonspecific esophageal dysmotility, with mildly delayed esophageal emptying and scatterednonpropulsive tertiary contraction waves.There is a moderately sized type III hiatal hernia. There was mild spontaneous gastroesophageal reflux.1OP17RAD_PS01[facility] HospitalCT Chest Wo Contrast Abdomen Wo Contrast Pelvis Wo Byujqkfn5174-79-66 15:23:55EXAMINATION: CT CHEST WO CONTRAST ABDOMEN WO CONTRAST PELVIS WO CONTRAST CLINICAL HISTORY: abd pain hiatal COMPARISON: None. TECHNIQUE: CT of the chest, abdomen and pelvis without intravenous contrast. Sagittal and coronal computerized reformatted images were also obtained. Absence of intravenouscontrast decreases sensitivity for detection of focal lesions and vascular pathology. CT imaging wasperformed with iterative reconstruction techniques and/or automated exposure control to reduce radiation dose. FINDINGS: CHEST: LUNGS AND AIRWAYS: Dependent atelectasis. Additional more nodular consolidations in the posterior right lower lobe (e.g. 8 mm posterior nodule series 302, image 43, and 6 mm medial nodule image 56). Left upper lobe 2 mm nodule is too small to require follow-up (series 302,image 35). PLEURA: No pleural effusion or pneumothorax. CARDIOVASCULAR: The ascending aorta is mildly dilated, measuring 4.1 cm. Main pulmonary artery is severely dilated, measuring 4.1 cm. Moderate coronary artery calcifications. MEDIASTINUM AND LYMPH NODES: No mediastinal or hilar adenopathy. ABDOMEN AND PELVIS: HEPATOBILIARY: No focal hepatic lesions. No biliary ductal dilation. Status post cholecystectomy. SPLEEN: No splenomegaly. PANCREAS: No focal masses or ductal dilation. Punctate calcification. ADRENALS: No adrenal nodules. KIDNEYS: [...] Unremarkable. BONES AND SOFT TISSUES: Degenerative changes throughout the spine. Bilateral total shoulder arthroplasties. IMPRESSION: 1.Moderate type III hiatal hernia.2.Groundglass and nodularity in the dependent lungs is largely due to hypoventilatory changes, although there could be a small component of superimposed aspiration. Given the nodularity involving some of the changes, recommend follow-up chest CT in 6 months.3.Main pulmonary artery is dilatedup to 4.1 cm, which can be seen in but is not specific for pulmonary hypertension. Ascending aorta is dilated up to 4.1 cm, and there is mild ectasia of the infrarenal abdominal aorta.4.Additional chronic and incidental findings as detailed above. [facility]-[id number] Dictated and approved by radiology resi dent/fellow: Jenna Valenzuela M.D. I, Medhat Flowers Jr., M.D., personally reviewed the images and resident's/fellow's findings and agree with the final report. Interface, Radiology Results Incoming - 04/21/2020 9:27 [...] CARDIOVASCULAR: The ascending aorta is mildly dilated, measuring4.1 cm. Main pulmonary artery is severely dilated, [...] aorta.4.Additional chronic and incidental findings as detailed above.[facility]-[id number] and approved by residential solar consultant/fellow: Jenna Valenzuela M.D.I, Medhat Flowers Jr., M.D., personally reviewed the images and resident's/fellow's findings and agree with the final report. [facility], GC, TV,PCR, IN [id number] 15:38:00 Test Item Value Reference Range Interpretation Comments FT (test code = CHTR) Not detected (qualifier Not Detected N value) FT (test code = Not detected (qualifier Not Detected N NGONO) value) FT (test code = TRVG) Not detected (qualifier Not Detected N value) URINALYSIS WITH FGXPQCNPDME1656-73-23 10:57:00 Test Item Value Reference Range Interpretation Comments Color (test code = UCOLR) Dk. Yellow Clarity (test code = UCLAR) Hazy Glucose (test code = UGLUC) NEGATIVE NEGATIVE N Bilirubin (test code = UBILI) NEGATIVE NEGATIVE N Ketones (test code = UKET) NEGATIVE NEGATIVE N Specific Dewey (test code = 1.025 1.005-1.030 A USPGR) [...]
[2021-01-28 13:20] LABS: Absolute Lymphocytes (CBC) 1.4 K/uL (0.7-4.9); Basophils % 1.1 % (0-1.3); Hematocrit 32.1 % (36.0-45.0); Lymphocytes % 20.1 % (15.3-44.8); MPV 6.9 fL (7.6-11.3); RBC Red Blood Cell Count 4.57 M/uL (3.86-4.86)
[2021-01-28 13:21] LABS: Protime INR 1.15
[2021-01-28 13:41] LABS: ALT/SGPT 59 U/L (12-78); AST/SGOT 56 U/L (15-37); Albumin 3.3 g/dL (3.4-5.0); Alkaline Phosphatase 76 U/L (45-117); BUN Blood Urea Nitrogen 23 mg/dL (7-18); Bicarbonate 32 mmol/L (21-32); Bilirubin Direct 0.1 mg/dL (0-0.2); Bilirubin Total 0.4 mg/dL (0.2-1.0); Ferritin 12.8 ng/mL (8-388); Glucose Level 104 mg/dL (74-106); Magnesium 2.3 mg/dL (1.8-2.4); NT PRO-BNP 909 pg/mL (<125); Potassium 3.2 mmol/L (3.5-5.1); Sodium Level 143 mmol/L (136-145); Troponin (Emerg Dept Use Only) < 0.02 ng/mL (0.0-0.045)
--- NOTE | 2021-01-28 13:47 | RAD REPORT ---
EXAM DESCRIPTION: RAD - Chest Single View - 01/28/2021 1:42 pm CLINICAL HISTORY: COUGH COMPARISON: Chest Single View dated 12/16/2020; Chest Single View dated 09/29/2020; Chest Single View dated 07/30/2020; Chest Single View dated 07/29/2020 FINDINGS: Lines: None. Lungs: No evidence of edema or pneumonia. Pleural: No significant pleural effusions or pneumothorax. Cardiac: The heart size is within normal limits. Bones: No acute fractures. Bilateral shoulder arthroplasties . Other: IMPRESSION: No acute cardiopulmonary disease.
[2021-01-28 13:50] LABS: Platelet Estimate ADEQ; White Blood Cell Scan OK (OK)
[2021-01-28 13:51] LABS: Blood Morphology Comment NOTED (NOT SEEN); Hypochromasia 1+
--- NOTE | 2021-01-28 14:15 | EDPHYS ---
Physician Documentation [facility] Name: Marjan Fleming Age: 66 yrs Sex: Female : 1955 Arrival Date: 01/28/2021 Time: 11:01 Bed 2 Private MD: Lele Rahman H ED Physician Heladio Collins HPI: 01/28 12:57 This 66 yrs old Female presents to ER via Ambulatory with complaints of High sp3 Blood Pressure, Headache, Neck Pain, <24hrs Old, Breathing Difficulty. 12:57 66-year-old female well-known to the emergency department with a history of COPD, sp3 hypertension, atrial fibrillation, bipolar disease presents to the ED for generalized anxiety, dyspnea, headache since returning from a cruise to find her has started drinking alcohol again. Patient denies chest pain, fever, vomiting, diarrhea, any other symptoms at this time. Patient is on Eliquis, amiodarone, among other medications.. Historical: - Allergies: 11:33 TRIMETHOPRIM; tw2 11:33 sulfamethoxazole (bulk); tw2 11:33 Stadol; tw2 11:33 Reglan; tw2 11:33 metoclopramide HCl; tw2 11:33 Fentanyl; tw 11:33 butorphanol tartrate; tw 11:33 Bactrim DS; tw2 - Home Meds: 11:33 amiodarone 200 mg Oral tab 1 tab once daily [Active]; BuSpar Oral [Active]; Descovy tw2 Oral [Active]; Eliquis 5 mg Oral tab 1 tab 2 times per day [Active]; Hydralazine Oral [Active]; lisinopril Oral [Active]; Metformin Oral [Active]; Metoprolol Tartrate Oral [Active]; Norvasc Oral [Active]; raltegravir Oral [Active]; sertraline Oral [Active]; - PMHx: 11:33 Hypertension; COPD; HIV; esophageal varices; Anxiety; Chronic pain; Bipolar disorder; tw2 Atrial Fib; Hepatitis; Migraines; Panic Attacks; - PSHx: 11:33 hernia repair; tw2 - Immunization history:: Adult Immunizations Client reports receiving the 2nd dose of the Covid vaccine. - Social history:: Smoking status: Patient denies any tobacco usage or history of. ROS: 12:59 Constitutional: Negative for fever, chills, and weight loss, Eyes: Negative for injury, sp3 pain, redness, and discharge, Neck: Negative for injury, pain, and swelling, Cardiovascular: Negative for chest pain, palpitations, and edema, Abdomen/GI: Negative for abdominal pain, nausea, vomiting, diarrhea, and constipation, Back: Negative for injury and pain, MS/Extremity: Negative for injury and deformity, Skin: Negative for injury, rash, and discoloration, Neuro: Negative for headache, weakness, numbness, tingling, and seizure. 12:59 Respiratory: Positive for shortness of breath. 12:59 Neuro: Positive for headache. 12:59 All other systems are negative. Exam: 13:00 Constitutional: This is a well developed, well nourished patient who is awake, alert, sp3 and in no acute distress. Head/Face: Normocephalic, atraumatic. ENT: Nares patent. No nasal discharge, no septal abnormalities noted. External auditory canals are clear. Oropharynx with no redness, swelling, or masses, exudates, or evidence of obstruction, uvula midline. Mucous membranes moist. Neck: Trachea midline, no thyromegaly or masses palpated, and no cervical lymphadenopathy. Supple, full range of motion without nuchal rigidity, or vertebral point tenderness. No Meningismus. Chest/axilla: Normal chest wall appearance and motion. Nontender with no deformity. No lesions are appreciated. Cardiovascular: Regular rate and rhythm with a normal S1 and S2. No gallops, murmurs, or rubs. Normal PMI, no JVD. No pulse deficits. Respiratory: Lungs have equal breath sounds bilaterally, clear to auscultation and percussion. No rales, rhonchi or wheezes noted. No increased work of breathing, no retractions or nasal flaring. Abdomen/GI: Soft, non-tender, with normal bowel sounds. No distension or tympany. No guarding or rebound. No evidence of tenderness throughout. Skin: Warm, dry with normal turgor. Normal color with no rashes, no lesions, and no evidence of cellulitis. Neuro: Awake and alert, GCS 15, oriented to person, place, time, and situation. Cranial nerves II-XII grossly intact. Motor strength 5/5 in all extremities. Sensory grossly intact. Cerebellar exam normal. Normal gait. Psych: Awake, alert, with orientation to person, place and time. Behavior, mood, and affect are within normal limits. 13:01 ECG was reviewed by the Attending Physician. EKG demonstrates sinus bradycardia at 55 sp3 bpm with normal QRS normal intervals, nonspecific ST/T changes diffuse with no STEMI criteria. Vital Signs: 11:28 BP 159 / 108; Pulse 61; Resp 18; Temp 97.9(TE); Pulse Ox 100% on R/A; Pain 9/10; tw2 12:37 BP 162 / 73; Pulse 55; Resp 18; Pulse Ox 96% on R/A; ap3 14:29 Pulse 56; Resp 20 S; Pulse Ox 99% on R/A; jd3 MDM: 12:36 Patient medically screened. sp3 13:00 Data reviewed: vital signs, nurses notes, EKG. sp3 13:01 ED course: 66-year-old female well-known to the ED here with what appears to be sp3 generalized anxiety secondary to stresses at home. Will obtain cardiac work-up and CT scan to rule out any medical etiology. If work-up is negative will discharge home.. 14:11 ED course: Patient at this time refusing CT scan. Will discharge home as vital signs sp3 are stable and she has no acute emergency at this time.. 01/28 12:37 Order name: Basic Metabolic Panel; Complete Time: 14: sp3 01/28 12:37 Order name: CBC with Diff; Complete Time: 14: sp3 01/28 12:37 Order name: LFT's; Complete Time: 14: sp3 01/28 12:37 Order name: Magnesium; Complete Time: 14: sp3 01/28 12:37 Order name: NT PRO-BNP; Complete Time: 14: sp3 01/28 12:37 Order name: PT-INR; Complete Time: 14: sp3 01/28 12:37 Order name: Troponin (emerg Dept Use Only); Complete Time: 14: sp3 01/28 12:37 Order name: XRAY Chest (1 view); Complete Time: 14: sp3 01/28 12:37 Order name: EKG; Complete Time: 12:38 sp3 01/28 12:37 Order name: Ferritin; Complete Time: 14:10 sp3 01/28 12:37 Order name: CRP; Complete Time: 14:10 sp3 01/28 13:26 Order name: CBC Smear Scan; Complete Time: 14:10 EDMS 01/28 12:37 Order name: Cardiac monitoring; Complete Time: 12:39 sp3 01/28 12:37 Order name: EKG - Nurse/Tech; Complete Time: 13:07 sp3 01/28 12:37 Order name: IV Saline Lock; Complete Time: 13:12 sp3 01/28 12:37 Order name: Labs collected and sent; Complete Time: 12:39 sp3 01/28 12:37 Order name: O2 Per Protocol; Complete Time: 12:39 sp3 01/28 12:37 Order name: O2 Sat Monitoring; Complete Time: 12:39 sp3 Administered Medications: No medications were administered Disposition Summary: 01/28/21 14:14 Discharge Ordered Location: Home sp3 Condition: Stable sp3 Diagnosis - Anxiety disorder, unspecified sp3 Discharge Instructions: - Discharge Summary Sheet sp3 - Panic Attack sp3 Forms: - Medication Reconciliation Form sp3 - Thank You Letter sp3 - Antibiotic Education sp3 - Prescription Opioid Use sp3 Signatures: Dispatcher [employer] EDKaren Ambrose RN RN tw2 Heladio Collins MD MD sp3 Corrections: (The following items were deleted from the chart) 13:53 13:26 CORONAVIRUS+ ordered. EDMS EDMS
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
[2021-01-28 14:36] VITALS: TEMP 97.9
[2021-01-28 14:37] VITALS: BP 162/73
[2021-01-28 14:39] VITALS: O2SAT 99
== END 2021-01-28 14:31 | disposition home or self-care (01) ==
LOC: ER 10:56
DX: F41.9 Anxiety disorder, unspecified (principal); Z20.822 Contact with and (suspected) exposure to COVID-19; J44.9 Chronic obstructive pulmonary disease, unspecified; K75.9 Inflammatory liver disease, unspecified; B20 Human immunodeficiency virus [HIV] disease; I48.91 Unspecified atrial fibrillation; Z88.1 Allergy status to other antibiotic agents; Z88.6 Allergy status to analgesic agent; Z88.8 Allergy status to other drugs, medicaments and biological substances
CPT/HCPCS: 93005; 85025; 80048; 36415; 83735; 85610; 80076; 84484; 82728; 83880; 86140; 71045; 99284; U0003

== ENCOUNTER 2021-01-31 09:58 | Emergency (ER) | payer OTHER ==
--- OUTSIDE RECORDS SUMMARY | 2021-01-31 10:06 | XMS REPORT | Continuity of Care Document ---
:1955 Author Organization [facility] t Address [address] [place] [address] Care Team Providers Name Role Phone Rahman Primary Care Physician HEMATPOUR Attending Clinician Unavailable Shelia JENKINS H Attending Clinician Tiny SALGUERO Attending Clinician Lab, Fam Pob I Attending Clinician Unavailable Doctor Unassigned, Name Attending Clinician Unavailable Devin SALGUERO, R Attending Clinician [facility] Attending Clinician Unavailable Ronald DHILLON Attending Clinician Diana SANCHEZ Attending Clinician Unavailable Hematpour Attending Clinician DO SYL Attending Clinician Unavailable DO SYL Admitting Clinician Unavailable Payers Payer Name Policy Type Policy Number Effective Date Expiration Date S gabino [facility] COMMUN[facility] PLAN [id number] 2012 STAR PLUS 00:00:00 Problems Condition Condition Condition Status Onset Resolution Last Treating Co mments Source Name Details Category Date Date Treatment Clinician Date CCL / EPS Diagnosis Active 2020-10-15 Memoria PVI 3-30 17:07:00 l ABLATION CCL / 00:00: Marty W/ CARTO / EPS PVI 00 GA / T ABLATION W/ CARTO / GA / T Active 08/19/2020 [facility] Obesity Obesity Disease Active 2015-05 Univers (BMI (BMI 2-19 ity of 30-39.9) 30-39.9) 00:00: [place] [facility] Anemia Anemia Disease Active 2014-05 Univers 0-03 ity of 00:00: [place] [facility] Hypovolemi Hypovolemi Disease Active 2014-05 U nivers a due to a due to 0- ity of hemorrhage hemorrhage [place] [facility] Chest pain Chest pain Disease Active 2014-05 U nivers 0-02 ity of 00:00: [place] [facility] 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:00: [place] shoulder shoulder 00 Medica l arthroplas arthroplas Br anch ty ty Posttrauma Posttrauma Disease Active U nivers tic stress tic stress 5-08 it y of disorder disorder 00:00: [place] [facility] 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 00:00: [place] virus virus 00 Medical (HIV) (HIV) Branch disease disease Bipolar 2 Bipolar 2 Disease Active Uni vers disorder disorder 11-18 ity of 00:00: [place] [facility] Chronic Chronic Disease Active Univers hepatitis hepatitis 11-18 ity of C C 00:00: [place] [facility] Hypertensi Hypertensi Disease Active U nivers on on 11-18 ity of 00:00: [place] 00 Medical Branch Allergies, Adverse Reactions, Alerts Allergy Allergy Status Severity Reaction(s) Onset Inactive Treating Comm ents Source Name Type Date Date Clinician Butorpha Drug Active Unknown - Unive rs nol Allergy See comments 11-25 ity of 00:00: [place] [facility] Fentanyl Drug Active Other - See Unknown Un matt Allergy comments 2-08 reaction ity o f 00:00: [place] [facility] Trimetho Propensi Active Hives Univer s prim ty to 2-08 ity of adverse 00:00: [place] reaction 00 Medical s Branch Metoclop Propensi Active Unknown - Uni vers ramide ty to See comments 1- ity of adverse 00:00: [place] reaction 00 Medical s Branch Sulfamet Propensi Active Other - See 2015-05 Stomach Univers hoxazole ty to comments 2 pain ity of adverse 00:00: [place] reaction 00 Medical s Branch Metoclop Propensi Active Anxiety Unive rs ramide ty to 02-14 ity of Hcl adverse 00:00: [place] reaction 00 Medical s Branch Butorpha Propensi Active Hallucinatio Univers nol ty to ns - ity of Tartrate adverse 00:00: [place] reaction 00 Medical s to Branch drug Stadol Stadol Active Memoria l [place] fentaNYL fentaNYL Active Memori a l [place] Bactrim Bactrim Active Memoria l [place] Family History Family Member Diagnosis Comments Start Date Stop Date Source Father Diabetes [facility] Father Other - see comments Univ ersity of [facility] Father Coronary [facility] Disease [facility] Mother Cancer [facility] Social History Social Habit Start Date Stop Date Quantity Comments Source Exposure to Not sure [facility] SARS-CoV-2 [facility] (event) [place] Tobacco use and 2021-01-28 2021-01-28 Former user Universi ty of exposure 00:00:00 00:00:00 [facility] Alcohol intake 2021-01-28 2021-01-28 Current University of 00:00:00 00:00:00 non-drinker of [facility] alcohol (finding) Branch Tobacco Comment 2015-02-14 2015-02-14 Smokes approx 1-2 Un iversity of 00:00:00 00:00:00 cigarettes per day [facility] when she smokes Branch History of 2011-09-29 User of smokeless Univers ity of tobacco use 00:00:00 tobacco [facility] Sex [birth year] Universit y of 00:00:00 00:00:00 [facility] Smoking Status Start Date Stop Date Source Social History 2020-08-29 10:43:53 2020-08-29 10:43:53 [facility] Medications Ordered Filled Start Stop Current Ordering Indication Dosage Frequency Signature Comments Components Source Medication Medication Date Date Medication? Clinician (SIG) Name Name buPROPion Yes [id number] 150mg Take 1 U nivers XL 9-08 tablet by ity of (WELLBUTRIN 00:00: mouth [place] XL) 150 mg 00 daily. Medical 24 hr Branch tablet SERTraline Yes [id number] 200mg Take 2 Univers 100 mg 9-08 tablets by ity of tablet 00:00: mouth [place] 00 daily. Medical Branch busPIRone Yes [id number] 30mg Take 1 Un matt 30 mg 8-30 tablet by ity of tablet 00:00: mouth 2 [place] 00 (two) Medical times Branch daily. LORazepam 2 Yes [id number] 2mg Take 1 Univers mg tablet 8-30 tablet by ity o f 00:00: mouth 2 [place] 00 (two) Medical times Branch daily as needed (anxiety). nystatin-tr Yes [id number] Apply to [facility] iamcinolone 11-25 area(s) 3 ity of cream 00:00: (three) [place] 00 times Medical daily. Branch emtricitabi Yes [id number] Take one Univers ne-tenofovi 7-06 po daily ity of r alafen 00:00: [place] (DESCOVY) 00 Medical tablet Branch raltegravir Yes [id number] 400mg Take 1 Univers (ISENTRESS) 6-11 tablet by ity of 400 mg 00:00: mouth 2 [place] tablet 00 (two) Medical times Branch daily. LORazepam 2 2020- No [id number] 2mg Take 1 Univers mg tablet 6-11 08-30 tablet by ity of 00:00: 00:00 mouth 2 [place] 00 :00 (two) Medical times Branch daily as needed (anxiety). buPROPion 2020- No [id number] 150mg Take 1 Univers XL 6-02 09-08 tablet by ity of (WELLBUTRIN 00:00: 00:[place] XL) 150 mg 00 :00 daily. Medical 24 hr Branch tablet SERTraline 2020- No [id number] 200mg Take 2 Univers 100 mg 6-02 09-08 tablets by ity of tablet 00:00: 00:00 mouth [place] 00 :00 daily. Medical Branch busPIRone No [id number] 30mg Take 1 U nivers 30 mg 10-22 08-30 tablet by ity of tablet 00:00: 00:00 mouth 2 [place] 00 :00 (two) Medical times Branch daily. Amlodipine No Notes: Memor ia 4-10 (Same as: l 14:00: Norvasc) emtricitabi No Notes: Caesar lisa ne 200 MG / 4-10 (Same as: l tenofovir 14:00: Descovy) Herm ariel alafenamide 00 Non-formul 25 MG Oral nancy Tablet [Descovy] pantoprazol No Notes: Caesar lisa e 4-10 Tablet l 14:00: should not [place] 00 be chewed or crushed. (Same as: Protonix) Amiodarone No Notes: Memor ia 4-10 (Same as: l 14:00: Cordarone) Amlodipine No Notes: Memor ia 4-10 (Same as: l 14:00: Norvasc) emtricitabi No Notes: Caesar lisa ne 200 MG / 4-10 (Same as: l tenofovir 14:00: Descovy) Herm ariel alafenamide 00 Non-formul 25 MG Oral nancy Tablet [Descovy] Sertraline No Notes: Memor ia 4-10 (Same as: l 14:00: Zoloft) Sertraline No Notes: Memor ia 4-10 (Same as: l 14:00: Zoloft) pantoprazol No Notes: Caesar lisa e 4-10 Tablet l 14:00: should not [place] 00 be chewed or crushed. (Same as: Protonix) Amiodarone No Notes: Memor ia 4-10 (Same as: l 14:00: Cordarone) Amlodipine No Notes: Memor ia 4-10 (Same as: l 14:00: Norvasc) emtricitabi No Notes: Caesar lisa ne 200 MG / 4-10 (Same as: l tenofovir 14:00: Descovy) Herm ariel alafenamide 00 Non-formul 25 MG Oral nancy Tablet [Descovy] Sertraline No Notes: Memor ia 4-10 (Same as: l 14:00: Zoloft) [place] 00 pantoprazol No Notes: Caesar lisa e 4-10 Tablet l 14:00: should not [place] 00 be chewed or crushed. (Same as: Protonix) Amiodarone No Notes: Memor ia 4-10 (Same as: l 14:00: Cordarone) [place] 00 Amlodipine No Notes: Memor ia 4-10 (Same as: l 14:00: Norvasc) [place] 00 emtricitabi No Notes: Caesar lisa ne 200 MG / 4-10 (Same as: l tenofovir 14:00: Descovy) Herm ariel alafenamide 00 Non-formul 25 MG Oral nancy Tablet [Descovy] Sertraline No Notes: Memor ia 4-10 (Same as: l 14:00: Zoloft) [place] 00 pantoprazol No Notes: Caesar lisa e 4-10 Tablet l 14:00: should not [place] 00 be chewed or crushed. (Same as: Protonix) Amiodarone No Notes: Memor ia 4-10 (Same as: l 14:00: Cordarone) [place] 00 Amlodipine No Notes: Memor ia 4-10 (Same as: l 14:00: Norvasc) [place] 00 emtricitabi No Notes: Caesar lisa ne 200 MG / 4-10 (Same as: l tenofovir 14:00: Descovy) Herm ariel alafenamide 00 Non-formul 25 MG Oral nancy Tablet [Descovy] Sertraline No Notes: Memor ia 4-10 (Same as: l 14:00: Zoloft) [place] 00 pantoprazol No Notes: Caesar lisa e 4-10 Tablet l 14:00: should not [place] 00 be chewed or crushed. (Same as: Protonix) Amiodarone No Notes: Memor ia 4-10 (Same as: l 14:00: Cordarone) [place] Sucralfate No Notes: May M emoria 4-10 interfere l 02:00: w/enteral [place] 00 feeds - Take 1 hr before [...] 4-10 Same as: l 02:00: Eliquis [place] Hydralazine No Notes: Caesar lisa Hydrochlori 4-10 [...] 0.9% 4-10 (Same as: l 02:00: BD [place] 00 Posiflush) Eliquis No Notes: Memoria 4-10 Same as: l 02:00: Eliquis [place] Hydralazine No Notes: Caesar lisa Hydrochlori 4-10 [...] 0.9% 4-10 (Same as: l 02:00: BD [place] 00 Posiflush) Eliquis No Notes: Memoria 4-10 Same as: l 02:00: Eliquis [place] Hydralazine No Notes: Caesar lisa Hydrochlori 4-10 [...] Memoria 4-10 Same as: l 02:00: Eliquis [place] Hydralazine No Notes: Caesar lisa Hydrochlori 4-10 (Same as: l de 50 MG 02:00: Apresoline Her mitchell Oral Tablet 00 ) May interfere w/enteral feedings Take With Food Sucralfate No Notes: May M emoria 4-10 interfere l 02:00: w/enteral [place] 00 feeds - Take 1 hr before [...] Memoria 4-10 Same as: l 02:00: Eliquis [place] 00 Hydralazine No Notes: Caesar lisa Hydrochlori [...] # 3) Buspirone No Notes: Memori a -09 (Same As: l 22:00: BuSpar) Lisinopril No 40 mg, 1 Mem oria 4-09 tab, l 22:00: Route: PO, Drug form: TAB, BID, Dosing Weight 97.273, kg, Start date: 08/29/20 17:00:00 CDT, Duration: 30 day, Stop date: 09/28/20 9:00:00 CDT metoprolol No 100 mg, 1 Me moria tartrate - tab, l 22:00: Route: PO, Drug form: TAB, BID, Dosing Weight 97.273, kg, Start date: 08/29/20 17:00:00 CDT, Duration: 30 day, Stop date: 09/28/20 9:00:00 CDT Raltegravir 1-0 No 400 mg, 1 M emoria 400 MG Oral 4-09 tab, l Tablet 22:00: Route: PO, Skylar nn [ISENTRESS] 00 Drug form: TAB, BID, Dosing Weight 97.273, kg, Start date: 08/29/20 17:00:00 CDT, Duration: 30 day, Stop date: 09/28/20 9:00:00 CDT, 0 Buspirone 1-0 No Notes: Memori a 08-29 (Same As: l 22:00: BuSpar) Lisinopril 1-0 No 40 mg, 1 Mem oria 4-09 tab, l 22:00: Route: PO, [place] 00 Drug form: TAB, BID, Dosing Weight 97.273, kg, Start date: 08/29/20 17:00:00 CDT, Duration: 30 day, Stop date: 09/28/20 9:00:00 CDT metoprolol 1-0 No 100 mg, 1 Me moria tartrate 4-09 tab, l 22:00: Route: PO, Marty Drug form: TAB, BID, Dosing Weight 97.273, kg, Start date: 08/29/20 17:00:00 CDT, Duration: 30 day, Stop date: 09/28/20 9:00:00 CDT Buspirone 1-0 No Notes: Memori a 08-29 (Same As: l 22:00: BuSpar) Raltegravir 2020-0 No 400 mg, 1 M emoria 400 MG Oral 4-09 tab, l Tablet 22:00: Route: PO, Skylar nn [ISENTRESS] Drug form: TAB, BID, Dosing Weight 97.273, kg, Start date: 08/29/20 17:00:00 CDT, Duration: 30 day, Stop date: 09/28/20 9:00:00 CDT, 0 Lisinopril 2021-0 No 40 mg, 1 Mem oria 4-09 [...] day, Stop date: 09/28/20 9:00:00 CDT Raltegravir 1-0 No 400 mg, 1 M emoria 400 MG Oral 4-09 tab, l Tablet 22:00: Route: PO, Skylar nn [ISENTRESS] Drug form: TAB, BID, Dosing Weight 97.273, kg, Start date: 08/29/20 17:00:00 CDT, Duration: 30 day, Stop date: 09/28/20 9:00:00 CDT, 0 Buspirone 2020-0 No Notes: Memori a -09 (Same As: l 22:00: BuSpar) Lisinopril 2020-0 No 40 mg, 1 Mem oria 4-09 tab, l 22:00: Route: PO, [place] Drug form: TAB, BID, Dosing Weight 97.273, kg, Start date: 08/29/20 17:00:00 CDT, Duration: 30 day, Stop date: 09/28/20 9:00:00 CDT metoprolol 1-0 No 100 mg, 1 Me moria tartrate 4-09 tab, l 22:00: Route: PO, Marty Drug form: TAB, BID, Dosing Weight 97.273, kg, Start date: 08/29/20 17:00:00 CDT, Duration: 30 day, Stop date: 09/28/20 9:00:00 CDT Raltegravir 2021-0 No 400 mg, 1 M emoria 400 MG Oral 4-09 tab, l Tablet 22:00: Route: PO, Skylar nn [ISENTRESS] Drug form: TAB, BID, Dosing Weight 97.273, kg, Start date: 08/29/20 17:00:00 CDT, Duration: 30 day, Stop date: 09/28/20 9:00:00 CDT, 0 Buspirone No Notes: Memori a 4-09 (Same As: l 22:00: BuSpar) [place] 00 Lisinopril No 40 mg, 1 Mem oria [...] 9:00:00 CDT, 0 Morphine No Notes: Memoria 4-09 (Same l 17:07: as:MORPhin [place] 00 e Sulfate) Morphine No Notes: Memoria 4-09 (Same l 17:07: as:MORPhin [place] 00 e Sulfate) Morphine No Notes: Memoria 4-09 (Same l 17:07: as:MORPhin [place] 00 e Sulfate) Morphine No Notes: Memoria 4-09 (Same l 17:07: as:MORPhin [place] 00 e Sulfate) Morphine No Notes: Memoria 4-09 (Same l 17:07: as:MORPhin [place] 00 e Sulfate) buPROPion No 150 mg, [...] 08-29 Drug form: l 15:40: INJ, ONCE, [place] Stop date: 08/29/20 10:40:00 CDT neostigmine 2020-0 [...] ONCE, Stop date: 08/29/20 10:40:00 CDT protamine 0 No Route: IV, Me moria (ANES) [...] ONCE, Stop date: 08/29/20 10:40:00 CDT glycopyrrol 0 No Route: IV, Memoria ate [...] = 1 M emoria e 40 mg 08-29 tab, PO, l oral 15:27: Daily, # [place] enteric 00 30 tab, 0 coated Refill(s), tablet Pharmacy: [facility] 149, 162.56, cm, 08/29/20 5:30:00 CDT, Height, 97.273, kg, 08/29/20 5:30:00 CDT, Weight pantoprazol 2021-0 Yes 40 mg = 1 M emoria e 40 mg 4-09 tab, PO, l oral 15:27: Daily, # [place] enteric 00 30 tab, 0 coated Refill(s), tablet Pharmacy: [facility] 149, 162.56, cm, 08/29/20 5:30:00 CDT, Height, 97.273, kg, 08/29/20 5:30:00 CDT, Weight pantoprazol 2021-0 Yes 40 mg = 1 M emoria e 40 mg 4-09 tab, PO, l oral 15:27: Daily, # [place] enteric 00 30 tab, 0 coated Refill(s), tablet Pharmacy: [facility] 149, 162.56, cm, 08/29/20 5:30:00 CDT, Height, 97.273, kg, 08/29/20 5:30:00 CDT, Weight pantoprazol 2021-0 Yes 40 mg = 1 M emoria e 40 mg 4-09 tab, PO, l oral 15:27: Daily, # [place] enteric 00 30 tab, 0 coated Refill(s), tablet Pharmacy: [facility] 149, 162.56, cm, 08/29/20 5:30:00 CDT, Height, 97.273, kg, 08/29/20 5:30:00 CDT, Weight pantoprazol 2021-0 Yes 40 mg = 1 M emoria e 40 mg 4-09 tab, PO, l oral 15:27: Daily, # [place] enteric 00 30 tab, 0 coated Refill(s), tablet Pharmacy: [facility] 149, 162.56, cm, 08/29/20 5:30:00 CDT, Height, 97.273, kg, 08/29/20 5:30:00 CDT, Weight pantoprazol 2021-0 No 40 mg = 1 M emoria e 40 mg 4-09 tab, PO, l oral 15:26: Daily, # [place] enteric 00 30 tab, 0 coated Refill(s) tablet sucralfate 2020-0 Yes 1 gm = 1 Mem oria 1 g oral 4-09 tab, PO, l tablet 15:26: Q12H, # 28 Skylar nn 00 tab, 0 Refill(s), Pharmacy: [facility] 149, 162.56, cm, 08/29/20 5:30:00 CDT, Height, 97.273, kg, 08/29/20 5:30:00 CDT, Weight pantoprazol 2020-0 No 40 mg = 1 M emoria e 40 mg 4-09 tab, PO, l oral 15:26: Daily, # [place] enteric 00 30 tab, 0 coated Refill(s) tablet sucralfate 2020-0 Yes 1 gm = 1 Mem oria 1 g oral 4-09 tab, PO, l tablet 15:26: Q12H, # 28 Skylar nn 00 tab, 0 Refill(s), Pharmacy: [facility] 149, 162.56, cm, 08/29/20 5:30:00 CDT, Height, [...] [place]yl[place] nn 00 tab, 0 Refill(s), Pharmacy: [facility] 149, 162.56, cm, 08/29/20 5:30:00 CDT, Height, [...] Skylar nn 00 tab, 0 Refill(s), Pharmacy: [facility] 149, 162.56, cm, 08/29/20 5:30:00 CDT, Height, 97.273, kg, 08/29/20 5:30:00 CDT, Weight pantoprazol No 40 mg = 1 M emoria e 40 mg 4-09 tab, PO, l oral 15:26: Daily, # [place] enteric 00 30 tab, 0 coated Refill(s) tablet sucralfate Yes 1 gm = 1 Mem oria 1 g oral 4-09 tab, PO, l tablet 15:26: Q12H, # 28 Skylar nn 00 tab, 0 Refill(s), Pharmacy: [facility] 149, 162.56, cm, 08/29/20 5:30:00 CDT, Height, 97.273, kg, 08/29/20 5:30:00 CDT, Weight Saline No Notes: Memoria Flush 0.9% 4-09 (Same as: l 15:25: BD [place] 00 Posiflush) Lorazepam No Notes: Memori a 4-09 (Same as: l 15:25: Ativan) Saline No Notes: Memoria Flush 0.9% 4-09 (Same as: l 15:25: BD [place] 00 Posiflush) Lorazepam No Notes: Memori a 4-09 (Same as: l 15:25: Ativan) Saline No Notes: Memoria Flush 0.9% 4-09 (Same as: l 15:25: BD [place] 00 Posiflush) Saline No Notes: Memoria Flush 0.9% 4-09 (Same as: l 15:25: BD [place] 00 Posiflush) Lorazepam No Notes: Memori a 4-09 (Same as: l 15:25: Ativan) Marty Lorazepam No Notes: Memori a 4-09 (Same as: l 15:25: Ativan) Marty Saline No Notes: Memoria Flush 0.9% 4-09 (Same as: l 15:25: BD [place] 00 Posiflush) Lorazepam No Notes: Memori a 08-29 (Same as: l 15:25: Ativan) Isuprel HCl No Route: IV, Memoria (ANES) 0.2 08-29 Drug form: l mg + 15:00: INJ, Dosing Weight 97.3, kg, Start date: 08/29/20 10:00:00 CDT, Stop date: 08/29/20 11:00:00 CDT Isuprel HCl No Route: IV, Memoria (ANES) 0.2 08-29 Drug form: l mg + 15:00: INJ, Dosing Weight 97.3, kg, Start date: 08/29/20 10:00:00 CDT, Stop date: 08/29/20 11:00:00 CDT Isuprel HCl No Route: IV, Memoria (ANES) 0.2 08-29 Drug form: l mg + 15:00: INJ, Dosing Weight 97.3, kg, Start date: 08/29/20 10:00:00 CDT, Stop date: 08/29/20 11:00:00 CDT Isuprel HCl No Route: IV, Memoria (ANES) 0.2 08-29 Drug form: l mg + 15:00: INJ, Dosing Weight 97.3, kg, Start date: 08/29/20 10:00:00 CDT, Stop date: 08/29/20 11:00:00 CDT Isuprel HCl No Route: IV, Memoria (ANES) 0.2 08-29 Drug form: l mg + 15:00: INJ, Dosing Weight 97.3, kg, Start date: 08/29/20 10:00:00 CDT, Stop date: 08/29/20 11:00:00 CDT heparin No Route: IV, Caesar lisa (ANES) 08-29 Drug form: l 14:49: INJ, ONCE, Stop date: 08/29/20 9:49:00 CDT heparin No Route: IV, Caesar lisa (ANES) 08-29 Drug form: l 14:49: INJ, ONCE, Stop date: 08/29/20 9:49:00 CDT heparin 202-0 No Route: IV, Caesar lisa (ANES) 08-29 Drug form: l 14:49: INJ, ONCE, Stop date: 08/29/20 9:49:00 CDT heparin 202-0 No Route: IV, Caesar lisa (ANES) 08-29 Drug form: l 14:49: INJ, ONCE, Stop date: 08/29/20 9:49:00 CDT heparin 202-0 No Route: IV, Caesar lisa (ANES) 08-29 Drug form: l 14:49: INJ, ONCE, Stop date: 08/29/20 9:49:00 CDT propofol 202-0 No Route: IV, Mem oria (ANES) 08-29 Drug form: l 14:29: INJ, ONCE, Stop date: 08/29/20 9:29:00 CDT propofol 2021-0 No Route: IV, Mem oria (ANES) 08-29 Drug form: l 14:29: INJ, ONCE, Stop date: 08/29/20 9:29:00 CDT propofol 2021-0 No Route: IV, Mem oria (ANES) 08-29 Drug form: l 14:29: INJ, ONCE, Stop date: 08/29/20 9:29:00 CDT propofol 2021-0 No Route: IV, Mem oria (ANES) 08-29 Drug form: l 14:29: INJ, ONCE, Stop date: 08/29/20 9:29:00 CDT propofol 2021-0 No Route: IV, Mem oria (ANES) 08-29 Drug form: l 14:29: INJ, ONCE, Stop date: 08/29/20 9:29:00 CDT heparin 202-0 No Route: IV, Caesar lisa (ANES) 08-29 Drug form: l 14:18: INJ, ONCE, Stop date: 08/29/20 9:18:00 CDT heparin 202-0 No Route: IV, Caesar lisa (ANES) 08-29 Drug form: l 14:18: INJ, ONCE, [place] 00 Stop date: 08/29/20 9:18:00 CDT heparin 2020-0 No Route: IV, Caesar lisa (ANES) 08-29 Drug form: l 14:18: INJ, ONCE, [place] 00 Stop date: 08/29/20 9:18:00 CDT heparin 2020-0 No Route: IV, Caesar lisa (ANES) 08-29 Drug form: l 14:18: INJ, ONCE, Stop date: 08/29/20 9:18:00 CDT heparin 2020-0 No Route: IV, Caesar lisa (ANES) 08-29 Drug form: l 14:18: INJ, ONCE, Stop date: 08/29/20 9:18:00 CDT Labetalol 2020-0 No 10 mg, Memori a 08-29 Route: l 14:01: IVP, [place] 00 Q5Min, Dosing Weight 97.273, kg, PRN [...] lisa 08-29 Route: l 14:01: IVP, PRN, [place] 00 Dosing Weight 97.273, kg, PRN Benzodiaze pine Reversal, Initial dose, Start date: 08/29/20 9:01:00 CDT, Duration: 30 day, Stop date: 09/28/20 9:00:00 CDT Naloxone 2021-0 No 0.4 mg, Memori a 08-29 Route: l 14:01: IVP, [place] 00 Q2MIN, Dosing Weight 97.273, kg, PRN Narcotic Reversal, Start date: 08/29/20 9:01:00 CDT, Duration: 8 doses or times, Stop date: Limited # of times Ondansetron 2021-0 No 4 mg, Memor ia 08-29 Route: l 14:01: IVP, ONCE, [place] 00 Dosing Weight 97.273, kg, PRN Nausea & Vomiting, Start date: 08/29/20 9:01:00 CDT Labetalol 2021-0 No 10 mg, Memori a 08-29 Route: l 14:01: IVP, [place] 00 Q5Min, Dosing Weight 97.273, kg, PRN [...] oria ne 08-29 Route: l 14:01: IVP, [place] 00 Q5Min, Dosing Weight 97.273, kg, PRN Pain Score 7-10, Start date: 08/29/20 9:01:00 CDT, Duration: 4 doses or times, Stop date: Limited # of times Flumazenil 2020-0 No 0.2 mg, Caesar lisa 08-29 Route: l 14:01: IVP, PRN, [place] 00 Dosing Weight 97.273, kg, PRN Benzodiaze pine Reversal, Initial dose, Start date: 08/29/20 9:01:00 CDT, Duration: 30 day, Stop date: 09/28/20 9:00:00 CDT Naloxone 2020-0 No 0.4 mg, Memori a 08-29 Route: l 14:01: IVP, [place] 00 Q2MIN, Dosing Weight 97.273, kg, PRN Narcotic Reversal, Start date: 08/29/20 9:01:00 CDT, Duration: 8 doses or times, Stop date: Limited # of times Ondansetron 2020-0 No 4 mg, Memor ia 08-29 Route: l 14:01: IVP, ONCE, [place] 00 Dosing Weight 97.273, kg, PRN Nausea & Vomiting, Start date: 08/29/20 9:01:00 CDT Labetalol 2020-0 No 10 mg, Memori a 08-29 Route: l 14:01: IVP, [place] 00 Q5Min, Dosing Weight 97.273, kg, PRN Elevated BP, Start date: 08/29/20 9:01:00 CDT, Duration: 5 doses or times, Stop date: Limited # of times Acetaminoph 2020-0 No 1,000 mg, M emoria en 08-29 Route: PO, l 14:01: Drug form: [place] 00 TAB, ONCE, Dosing Weight 97.273, kg, [...] lisa 08-29 Route: l 14:01: IVP, PRN, [place] 00 Dosing Weight 97.273, kg, PRN Benzodiaze pine Reversal, Initial dose, Start date: 08/29/20 9:01:00 CDT, Duration: 30 day, Stop date: 09/28/20 9:00:00 CDT Naloxone 2020-0 No 0.4 mg, Memori a 08-29 Route: l 14:01: IVP, [place] 00 Q2MIN, Dosing Weight 97.273, kg, PRN [...] 08-29 Route: PO, l 14:01: Drug form: [place] 00 TAB, ONCE, Dosing Weight 97.273, kg, [...] oria ne 08-29 Route: l 14:01: IVP, [place] 00 Q5Min, Dosing Weight 97.273, kg, PRN [...] Vomiting, Start date: 08/29/20 9:01:00 CDT Labetalol 2021-0 No 10 mg, Memori a 08-29 Route: l 14:01: IVP, [place] 00 Q5Min, Dosing Weight 97.273, kg, PRN Elevated BP, Start date: 08/29/20 9:01:00 CDT, Duration: 5 doses or times, Stop date: Limited # of times Acetaminoph 2021-0 No 1,000 mg, M emoria en 08-29 Route: PO, l 14:01: Drug form: [place] 00 TAB, ONCE, Dosing Weight 97.273, kg, [...] Memori a 08-29 Route: l 14:01: IVP, [place] 00 Q2MIN, Dosing Weight 97.273, kg, PRN [...] 08-29 Drug form: l 13:42: INJ, ONCE, [place] Stop date: 08/29/20 8:42:00 CDT fentaNYL 2020-0 No Route: IV, Mem oria (ANES) 08-29 Drug form: l 13:42: INJ, ONCE, [place] 00 Stop date: 08/29/20 8:42:00 CDT fentaNYL 2020-0 No Route: IV, Mem oria (ANES) 08-29 Drug form: l 13:42: INJ, ONCE, Marty 00 Stop date: 08/29/20 8:42:00 CDT fentaNYL 2020-0 No Route: IV, Mem oria (ANES) 08-29 Drug form: l 13:42: INJ, ONCE, Stop date: 08/29/20 8:42:00 CDT fentaNYL 2020-0 No Route: IV, Mem oria (ANES) 08-29 Drug form: l 13:42: INJ, ONCE, Stop date: 08/29/20 8:42:00 CDT norepinephr 0 No Route: IV, Memoria ine (ANES) 08-29 Drug form: l 10 13:15: INJ, Start [place] microgram date: 08/29/20 8:15:00 CDT, Stop date: 08/29/20 9:15:00 CDT norepinephr 2020-0 No Route: IV, Memoria ine (ANES) 08-29 Drug form: l 10 13:15: INJ, Start [place] microgram date: 08/29/20 8:15:00 CDT, Stop date: [...] 2020-0 No Route: IV, Memoria ine (ANES) 4- Drug form: l 10 13:15: INJ, Start [place] microgram 00 date: 08/29/20 8:15:00 CDT, Stop date: 08/29/20 9:15:00 CDT Sodium 2020-0 No Route: IV, Memor ia Chloride 4-09 Total l 0.9% IV 12:30: Volume: Marty (ANES) 1000 00 1,000, mL Start date: 08/29/20 7:30:00 CDT, Stop date: 08/29/20 8:30:00 CDT Sodium 2020-0 No Route: IV, Memor ia Chloride 4-09 Total l 0.9% IV 12:30: Volume: [place] (ANES) 1000 00 1,000, mL Start date: 08/29/20 7:30:00 CDT, Stop date: 08/29/20 8:30:00 CDT Sodium 2020-0 No Route: IV, Memor ia Chloride 4-09 Total l 0.9% IV 12:30: Volume: [place] (ANES) 1000 00 1,000, mL Start date: 08/29/20 7:30:00 CDT, Stop date: 08/29/20 8:30:00 CDT Sodium 2020-0 No Route: IV, Memor ia Chloride 4-09 Total l 0.9% IV 12:30: Volume: [place] (ANES) 1000 00 1,000, mL Start date: 08/29/20 7:30:00 CDT, Stop date: 08/29/20 8:30:00 CDT Sodium 2020-0 No Route: IV, Memor ia Chloride 4-09 Total l 0.9% IV 12:30: Volume: [place] (ANES) 1000 00 1,000, mL Start date: 08/29/20 7:30:00 CDT, Stop date: 08/29/20 8:30:00 CDT busPIRone 2020-0 Yes 30 mg = 1 Mem oria 30 mg oral - tab, PO, l tablet 11:43: BID, # 60 Patel n 00 tab, 0 Refill(s) busPIRone Yes 30 mg = 1 Mem oria 30 mg oral -09 tab, PO, l tablet 11:43: BID, # 60 Patel n 00 tab, 0 Refill(s) busPIRone Yes 30 mg = 1 Mem oria 30 mg oral 09 tab, PO, l tablet 11:43: BID, # 60 Patel n 00 tab, 0 Refill(s) busPIRone Yes 30 mg = 1 Mem oria 30 mg oral -09 tab, PO, l tablet 11:43: BID, # 60 Patel n 00 tab, 0 Refill(s) busPIRone Yes 30 mg = 1 Mem oria 30 mg oral -09 tab, PO, l tablet 11:43: BID, # 60 Patel n 00 tab, 0 Refill(s) 24 HR Yes 150 mg = 1 Memori a Bupropion -09 tab, PO, l Hydrochlori 11:42: Q24H, # 30 [place] de 150 MG 00 tab, 0 Extended Refill(s) Release Tablet 24 HR Yes 150 mg = 1 Memori a Bupropion -09 tab, PO, l Hydrochlori 11:42: Q24H, # 30 [place] de 150 MG 00 tab, 0 Extended Refill(s) Release Tablet 24 HR Yes 150 mg = 1 Memori a Bupropion -09 tab, PO, l Hydrochlori 11:42: Q24H, # 30 [place] de 150 MG 00 tab, 0 Extended Refill(s) Release Tablet 24 HR Yes 150 mg = 1 Memori a Bupropion 4-09 tab, PO, l Hydrochlori 11:42: Q24H, # 30 [place] de 150 MG 00 tab, 0 Extended Refill(s) Release Tablet 24 HR Yes 150 mg = 1 Memori a Bupropion 4-09 tab, PO, l Hydrochlori 11:42: Q24H, # 30 [place] de 150 MG 00 tab, 0 Extended Refill(s) Release Tablet apixaban 5 Yes 5 mg, PO, Me moria MG Oral 409 Q12H, tab, l Tablet 11:41: 0 [place] [Eliquis] 00 Refill(s), For Atrial Fibrilatio n apixaban 5 2020-0 Yes 5 mg, PO, Me moria MG Oral 08-29 Q12H, tab, l Tablet 11:41: 0 [place] [Eliquis] 00 Refill(s), For Atrial Fibrilatio n apixaban 5 0 Yes 5 mg, PO, Me moria MG Oral 08-29 Q12H, tab, l Tablet 11:41: 0 [place] [Eliquis] 00 Refill(s), For Atrial Fibrilatio n apixaban 5 2020-0 Yes 5 mg, PO, Me moria MG Oral 08-29 Q12H, tab, l Tablet 11:41: 0 [place] [Eliquis] 00 Refill(s), For Atrial Fibrilatio n apixaban 5 0 Yes 5 mg, PO, Me moria MG Oral 08-29 Q12H, tab, l Tablet 11:41: 0 [place] [Eliquis] 00 Refill(s), For Atrial Fibrilatio n AMIODarone Yes 200 mg = 1 M emoria 200 mg oral -09 tab, PO, l tablet 11:38: Daily, # [place] 00 90 tab, 3 Refill(s) AMIODarone Yes 200 mg = 1 M emoria 200 mg oral -09 tab, PO, l tablet 11:38: Daily, # [place] 00 90 tab, 3 Refill(s) AMIODarone 0 Yes 200 mg = 1 M emoria 200 mg oral 4-09 tab, PO, l tablet 11:38: Daily, # [place] 00 90 tab, 3 Refill(s) AMIODarone 0 Yes 200 mg = 1 M emoria 200 mg oral 4-09 tab, PO, l tablet 11:38: Daily, # [place] 00 90 tab, 3 Refill(s) AMIODarone Yes 200 mg = 1 M emoria 200 mg oral 4-09 tab, PO, l tablet 11:38: Daily, # [place] 00 90 tab, 3 Refill(s) normal 2021-0 No 1,000 mL, Memori a saline 0.9% 4-09 Rate: 100 l IV 1,000 mL 10:30: ml/hr, Herm ariel 00 Infuse over: 10 hr, Route: IV, Dosing Weight 97.273 kg, Total Volume: 1,000, Start date: 08/29/20 5:30:00 CDT, Duration: 30 day, Stop date: 09/28/20 5:29:00 CDT, 2.13, m2, 0 normal 2021-0 No 1,000 mL, Memori a saline 0.9% 4-09 Rate: 100 l IV 1,000 mL 10:30: ml/hr, Herm ariel 00 Infuse over: 10 hr, Route: IV, Dosing Weight 97.273 kg, Total Volume: 1,000, Start date: 08/29/20 5:30:00 CDT, Duration: 30 day, Stop date: 09/28/20 5:29:00 CDT, 2.13, m2, 0 normal 2021-0 No 1,000 mL, Memori a saline 0.9% 4-09 Rate: 100 l IV 1,000 mL 10:30: ml/hr, Herm ariel 00 Infuse over: 10 hr, Route: IV, Dosing Weight 97.273 kg, Total Volume: 1,000, Start date: 08/29/20 5:30:00 CDT, Duration: 30 day, Stop date: 09/28/20 5:29:00 CDT, 2.13, m2, 0 normal 2021-0 No 1,000 mL, Memori a saline 0.9% 4-09 Rate: 100 l IV 1,000 mL 10:30: ml/hr, Herm ariel 00 Infuse over: 10 hr, Route: IV, Dosing Weight 97.273 kg, Total Volume: 1,000, Start date: 08/29/20 5:30:00 CDT, Duration: 30 day, Stop date: 09/28/20 5:29:00 CDT, 2.13, m2, 0 normal 2021-0 No 1,000 mL, Memori a saline 0.9% 4-09 Rate: 100 l IV 1,000 mL 10:30: ml/hr, Herm ariel 00 Infuse over: 10 hr, Route: IV, Dosing Weight 97.273 kg, Total Volume: 1,000, Start date: 08/29/20 5:30:00 CDT, Duration: 30 day, Stop date: 09/28/20 5:29:00 CDT, 2.13, m2, 0 apixaban Yes 5mg Take 5 mg Univ ers (ELIQUIS) 5 3-17 by mouth 2 it y of mg tablet 13:18: (two) [place] 30 times Medical daily. Branch amiodarone Yes 100mg Take 100 Un matt 100 mg 3-17 mg by ity of tablet 13:18: mouth [place] 30 daily. Medical Branch hydralAZINE 2019-05 Yes 25mg Take 25 mg [...] 2 ity of 40 mg 13:06: (two) [place] capsule 41 times Medical daily. Branch albuterol Yes Univers 90 4-14 ity of mcg/actuati 00:00: [place] on inhaler 00 Medical Branch Immunizations Ordered Filled Immunization Date Status Comments Sour e Immunization Name Name Influenza Virus 2017-03-08 Completed Universit y of Vaccine 00:00:00 [facility] Influenza Virus 2014-01-30 Completed Universit y of Vaccine (3+ yrs) 00:00:00 [facility] dical Branch Pneumococcal 13 2014-01-30 Completed Universit y of Conjugate, PCV13 00:00:00 [facility] dical (Prevnar 13) Branch Pneumococcal 2012-02-16 Completed University o f Polysaccharide, 00:00:00 [place] Med ical PPSV23 (PNEUMOVAX) [place] Influenza Virus 2012-02-16 Completed Universit y of Vaccine 00:00:00 [facility] PPD (TB) 2012-02-16 Completed University of 00:00:00 [facility] Hep B, Adol or Pedi 2011-09-01 Completed Unive rsity of Dosage 00:00:00 [facility] Hep B, Adol or Pedi 2011-03-17 Completed Unive rsity of Dosage 00:00:00 [facility] Influenza Virus 2011-02-10 Completed Universit y of Vaccine 00:00:00 [facility] Hep B, Adol or Pedi 2011-02-10 Completed Unive rsity of Dosage 00:00:00 [facility] PPD (TB) 2010-11-18 Completed University of 00:00:00 [facility] TDAP (ADACEL) 2010-11-18 Completed University of VACCINE 00:00:00 [facility] HEPATITIS A 2004-03-02 Completed University of 00:00:00 [facility] HEPATITIS A 2003-08-01 Completed University of 00:00:00 [facility] Pneumococcal 2001-10-04 Completed University o f Polysaccharide, 00:00:00 [facility] ical PPSV23 (PNEUMOVAX) [place] PPD (TB) 2001-10-04 Completed University of 00:00:00 [facility] Vital Signs Vital Name Observation Time Observation Value Comments Source Systolic blood 2021-01-28 14:08:00 141 mm[Hg] Univer sity of pressure [facility] Diastolic blood 2021-01-28 14:08:00 79 mm[Hg] Unive rsity of pressure [facility] Heart rate 2021-01-28 14:08:00 56 /min [facility] Respiratory rate 2021-01-28 14:02:00 18 /min [facility] Body height 2021-01-28 14:02:00 162.6 cm [facility] Body weight 2021-01-28 14:02:00 99.111 kg [facility] BMI 2021-01-28 14:02:00 37.51 kg/m2 [facility] Body temperature 2020-12-02 14:14:00 36.83 Amina [facility] Respitory Rate 2020-08-30 13:00:00 Memori al [place] Systolic (mm Hg) 2020-08-30 13:00:00 Caesar rial [place] Diastolic (mm Hg) 2020-08-30 13:00:00 Mem orial [place] Systolic (mm Hg) 2020-08-30 11:00:00 Caesar rial [place] Diastolic (mm Hg) 2020-08-30 11:00:00 Mem orial [place] Temperature Oral (F) 2020-08-30 11:00:00 98.4 F [facility] [place] Respitory Rate 2020-08-30 11:00:00 Memori al [place] Respitory Rate 2020-08-30 10:00:00 Memori al [place] Systolic (mm Hg) 2020-08-30 10:00:00 Caesar rial [place] Diastolic (mm Hg) 2020-08-30 10:00:00 Mem orial [place] Temperature Oral (F) 2020-08-30 00:00:00 96.9 F [facility] [place] Temperature Oral (F) 2020-08-29 11:26:00 97.6 F [facility] [place] Height 2020-08-29 10:30:00 162.56 cm [facility] [place] Weight 2020-08-29 10:30:00 [facility] [place] BMI Calculated 2020-08-29 10:30:00 Memori al [place] Oxygen saturation in 2020-01-26 18:00:00 92 /min [facility] Arterial blood by [facility] Pulse oximetry Branch Procedures Procedure Date / Time Performing Clinician Source Performed COVID-19 (MOLECULAR 2021-01-02 17:28:00 [facility] TESTING [facility] NUCLEIC ACID AMPLIFICATION) LAB ONLY COVID 2021-01-02 17:28:00 Alfredo [facility] INTERPRETATION [facility] HUMAN IMMUNODEFICIENCY 2020-12-02 15:42:00 [facility] VIRUS 1 (HIV-1) BY [facility] QUANTITATIVE NAAT CD4 SUBSET ASSAY 2020-12-02 15:42:00 [facility] [place] GLYCOSYLATED HEMOGLOBIN 2020-12-02 15:42:00 [facility] (A1C) [facility] BASIC METABOLIC PANEL (NA, 2020-12-02 15:42:00 RonaldSantiago Nicole [facility] K, CL, CO2, GLUCOSE, BUN, Medica l Branch CREATININE, CA) GALV ONLY - VAGINAL 2020-11-25 18:19:00 Robbi Beltran [facility] PATHOGENS BY NUCLEIC ACID Medica l Branch TESTING CONSENT/REFUSAL FOR 2020-11-25 15:41:40 [facility] DIAGNOS[facility] AND TREATMENT [place] [facility] ASSIGNMENT OF BENEFITS 2020-11-25 15:41:12 [facility] [place] [facility] Encounters Start End Encounter Admission Attending Care Care Encounter Source Date/Time Date/Time Type Type Clinicians Facility Department ID 2020-12-12 Outpatient [facility], [facility] [id number] 31 [place] 08:16:46 [facility] 2020-12-12 Outpatient [facility], [facility] [id number] [place] 07:42:11 [facility]AR Healt [facility] 2020-10-31 Outpatient H[facility], [facility] [id number] [place] 09:44:50 [facility]AYAR Healt h 2020-10-31 Outpatient [facility], [facility] [id number] 49 [place] 07:54:08 KHASHAYAR Healt h 2020-09-30 Outpatient [facility]OUR, [facility] [id number] 60 [place] 13:16:03 KHASHAYAR Healt h 2021-01-28 2021-01-28 Travel 1.2.840.1 1.2.664.767 [id number] Univers 00:00:00 00:00:00 37066.1.1 350.1.13.10 ity of 3.104.2.7 4.2.7.3.698 [place] .3.323045 084.8 Medica l .8 Branch 2021-01-04 2021-01-04 Letter Shelia, 1.2.840.7 [id number] Univers 00:00:00 00:00:00 (Out) [facility] 09189.1.1 ity of 3.104.2.7 [place] .3.008472 Medica l .8 Branch 2021-01-03 2021-01-03 Letter Shelia, 1.2.840.0 [id number] Univers 00:00:00 00:00:00 (Out) Dagoberto Peterson 65912.1.1 ity of 3.104.2.7 [place] .3.841454 Medica l .8 Branch 2021-01-02 2021-01-02 Laboratory Cuba Franks 1.2.840.4 [id number] Univers 12:14:13 12:57:34 Only Lab, [facility] 99875.1.1 ity of 3.104.2.7 [place] .3.948968 Medica l .8 Branch 2021-01-02 2021-01-02 Travel 1.2.840.1 1.2.843.857 [id number] Univers 00:00:00 00:00:00 72560.1.1 350.1.13.10 ity of 3.104.2.7 4.2.7.3.698 [place] .3.704437 084.8 Medica l .8 Branch 2021-01-02 2021-01-02 Letter Doctor 1.2.840.0 [id number] Univers 00:00:00 00:00:00 (Out) Unassigned, 12687.1.1 ity of [place] 3.104.2.7 [place] .3.691810 Medica l .8 [place] 2021-01-02 2021-01-02 Letter Doctor 1.2.840.8 [id number] Univers 00:00:00 00:00:00 (Out) Unassigned, 77701.1.1 ity of [place] 3.104.2.7 [place] .3.314818 Medica l .8 Branch 2020-12-22 2020-12-22 Telephone Devin 1.2.840.3 [id number] Univers 00:00:00 00:00:00 Robbi Hairston 70349.1.1 i ty of 3.104.2.7 [place] .3.290677 Medica l .8 [place] 2020-12-12 2020-12-12 Office Hematpour, UTP 6400 1.2.840.114 [id number] 07:42:02 08:18:50 Visit Chris RUIZ 350.1.13.58 9.2.7.2.686 [id number] 1 2020-12-02 2020-12-02 Veterinary Surgery Technologist [facility] UNIVERSIT 1.2.840.114 [id number] 10:20:06 10:36:19 Visit [facility] 350.1.13.10 CLINICS 4.2.7.2.686 [id number] 2020-12-02 2020-12-02 Veterinary Surgery Technologist Santiago Cardenas 1.2.840.1 [id number] [facility] 10:20:06 10:36:19 Visit [facility] 29872.1.1 ity of 3.104.2.7 [place] .3.759725 Medica l .8 [place] 2020-12-02 2020-12-02 Office Ronald 1.2.840.4 [id number] Univers 08:31:37 09:01:37 Visit Santiago 19320.1.1 ity of 3.104.2.7 [place] .3.935887 Medica l .8 [place] 2020-11-25 2020-11-25 Office Devin [facility] 1.2.840.114 [id number] 11:06:30 11:58:14 Visit Robbi Hairston [facility] 350.1.13.10 [facility] 4.2.7.2.686 MATERNAL [id number] & CHILD [address] [place] [address] 2020-11-25 2020-11-25 Office Devin 1.2.840.0 [id number] Univers 11:06:30 11:58:14 Visit Robbi Hairston 97208.1.1 i ty of 3.104.2.7 [place] .3.971980 Medica l .8 [place] 2020-11-25 2020-11-25 Refill Ronald [facility] 1.2.113.807 [id number] 00:00:00 00:00:00 Santiago [facility] 350.1.13.10 CLINICS 4.2.7.2.686 [id number] 2020-11-25 2020-11-25 [facility] 1.2.255.862 [id number] 00:00:00 00:00:00 Eligiomeredith Hairston [facility] 350.1.13.10 [facility] 4.2.7.2.686 MATERNAL [id number] & CHILD [address] [place] [address] 2020-11-25 2020-11-25 Telephone Devin, 1.2.840.8 [id number] Univers 00:00:00 00:00:00 Robbi Hairston 84252.1.1 i ty of 3.104.2.7 [place] .3.542498 Medica l .8 [place] 2020-11-25 2020-11-25 Refill Ronald, 1.2.840.3 [id number] Univers 00:00:00 00:00:00 [place] 68433.1.1 ity of 3.104.2.7 [place] .3.248898 Medica l .8 Branch 2020-11-25 2020-11-25 Travel 1.2.840.1 1.2.291.502 [id number] Univers 00:00:00 00:00:00 61044.1.1 350.1.13.10 ity of 3.104.2.7 4.2.7.3.698 [place] .3.055117 084.8 Medica l .8 [place] 2020-11-25 2020-11-25 Orders Doctor 1.2.840.3 [id number] Univers 00:00:00 00:00:00 Only Unassigned, 49774.1.1 ity of [place] 3.104.2.7 [place] .3.307526 Medica l .8 [place] 2020-11-07 2020-11-07 Telephone KIMBERLEY Ortiz 6400 1.2.840.114 [id number] 00:00:00 00:00:00 Agustina ROMERO 350.1.13.58 9.2.7.2.686 [id number] 1 2020-10-29 2020-10-29 [facility] 1.2.840.6 [id number] Univers 00:00:00 00:00:00 [place] 34692.1.1 [facility] 3.104.2.7 [place] [id number] [facility] Branch 2020-08-29 2020-08-30 Bedded [facility] [id number] [facility] 10:20:00 14:10:00 Outpatient r [place] 00 [facility] 2020-08-29 2020-08-30 Bedded [facility] [id number] [facility] 10:20:00 14:10:00 Outpatient [facility] 00 [facility] 2020-08-29 2020-08-30 Outpatient Hematpour, [facility] [id number] 05:20:00 09:10:00 Khashayar 00 2020-08-29 2020-08-29 Outpatient [facility] CAR 7500 [facility] 05:20:00 05:20:00 2020-08-29 2020-08-29 Outpatient Hematpour, [facility] [id number] 05:20:00 05:20:00 Khashayar 00 Results Test Description Test Time Test Comments Results Result Sour e Comments LAB ONLY COVID 2020-12-21 COVID [facility] 4 [facility] 23:21:19 rpretation/Recomme Branch ndations:Molecular NAAT Tests for [...] COVID-19 testing the patient has had at [facility], including molecular NAAT testing (more commonly known as PCR testing and Rapid ID Now testing) and antibody testing. It does not take into account any testing that a patient has had outside of the [facility] medical record. [facility] LABORATORY SERVICESCOVID IwdqgtyGECB-MqC-5 NAAT (no units) ? ? Date ? Value ? 01/02/2021 ? Not Detected ? [facility] COVID-19 (MOLECULAR TESTING 2021-01-03 04:40:30 NUCLEIC ACID AMPLIFICATION) Test Item Value Reference Range Interpretation Comme nts SARS-CoV-2 NAAT (test code = Not Detected Not Detected 96660-6) KYLE (test code = KYLE) [employer] SARS-CoV-2 Assay is a real-time RT-PCR test intended for the qualitative detection of RNA from SARS-CoV-2 from nasopharyngeal (ELECTRICAL LINE MECHANIC) specimens. It is used under Emergency Use [...] indicated. Lab Interpretation (test code = Normal 49412-0) [facility] SU[facility] [id number] 17:59:25 Test Item Value Reference Range Interpretation Comments CD4 % (test code = 39 % 31-60 8123-2) CD4 Absolute (test code = See_Comment [ Automated message] 70382-5) The system [employer] generated this result transmitted ref erence range: 410-1,59 0 Cells/?L. The reference range was not used to int erpret this result as normal/abnormal . Lab Interpretation (test Normal code = 03719-1) [facility] IMMUNODEFICIENCY VIRUS 1 (HIV-1) BY QUANTITATIVE [id number] 21:59:29 Test Item Value Reference Range Interpretation Comments HIV-1 Quantitative <30 Not Detected H NAAT - copies/mL (test Copies/mL code = 14836-9) HIV-1 Quantitative Detected, not Not Detected A Interpretation (test Quantifiable code = 5716200919) KYLE (test code = KYLE) The [employer]pt[employer] [...] indicated. Lab Interpretation Abnormal (test code = 42254-3) [facility] Center[facility]OSYLATED HEMOGLOBIN (A1C)2020-12-02 17:09:18 Test Item Value Reference Range Interpretation Comments HGB A1C (test code = 6.1 % 4.0-5.7 H 4548-4) KYLE (test code = KYLE) Reference RangesNormal: <5.7%Prediabetes: 5.7 - 6.4%Diabetes: > 6.5% Lab Interpretation (test Abnormal code = 29706-1) [facility] MET[facility]OLIC PANEL (NA, K, CL, CO2, GLUCOSE, BUN, CREATININE, CA)2020-12-02 16:42:23 Test Item Value Reference Range Interpretation Comments NA (test code = 140 mmol/L 135-145 3824548190) K (test code = 4.8 mmol/L 3.5-5.0 2151672400) CL (test code = 106 mmol/L 98-108 6812411226) CO2 TOTAL (test code = 28 mmol/L 23-31 5393909411) AGAP (test code = 2-16 5271426961) BUN (test code = 25 mg/dL 7-23 H 6126025716) GLUCOSE (test code = 101 mg/dL 70-110 7383962591) CREATININE (test code = 0.89 mg/dL 0.50-1.04 8227817957) CALCIUM (test code = 9.0 mg/dL 8.6-10.6 6172528596) eGFR (test code = mL/min/1.73m2 6815828263) KYLE (test code = KYLE) Association of [...] tests). Lab Interpretation Abnormal (test code = 77441-7) [facility] ONLY - VAGINAL PATHOGENS BY NUCLEIC ACID [id number] 01:35:21 Test Item Value Reference Range Interpretation Comments Trichomonas vaginalis Negative Negative (test code = 0495867888) Izabel species (test Negative Negative code = 4887676891) Izbael glabrata (test Negative Negative code = 60886-8) Bacterial Vaginosis Negative Negative (test code = 97602-5) KYLE (test code = KYLE) Reliable results [...] validated for medico-legal purposes (sexual abuse in freedom-pubertal and pre-pubertal children, sexual assault, and legal cases). Results from this testing should be interpreted in conjunction with other laboratory and clinical data available to the clinician. Lab Interpretation Normal (test code = 85868-2) [facility]2021-04-09 16:31:00 Test Item Value Reference Range Interpretation Comments POC Activated Clotting Time (test code 153 s = POC Activated Clotting Time) [address]04-09 16:31:00 Test Item Value Reference Range Interpretation Comments POC Activated Clotting Time (test code 153 s = POC Activated Clotting Time) [address]04-09 16:31:00 Test Item Value Reference Range Interpretation Comments POC Activated Clotting Time (test code 153 s = POC Activated Clotting Time) [place] [id number] 16:31:00 Test Item Value Reference Range Interpretation Comments POC Activated Clotting Time (test code 153 s = POC Activated Clotting Time) [address]04-09 16:31:00 Test Item Value Reference Range Interpretation Comments POC Activated Clotting Time (test code 153 s = POC Activated Clotting Time) [address]04-09 14:37:00 Test Item Value Reference Range Interpretation Comments POC Activated Clotting Time (test code 454 s = POC Activated Clotting Time) [address]04-09 14:37:00 Test Item Value Reference Range Interpretation Comments POC Activated Clotting Time (test code 454 s = POC Activated Clotting Time) [address]04-09 14:37:00 Test Item Value Reference Range Interpretation Comments POC Activated Clotting Time (test code 454 s = POC Activated Clotting Time) [address]04-09 14:37:00 Test Item Value Reference Range Interpretation Comments POC Activated Clotting Time (test code 454 s = POC Activated Clotting Time) [address]04[address]09 14:37:00 Test Item Value Reference Range Interpretation Comments POC Activated Clotting Time (test code 454 s = POC Activated Clotting Time) [address]04[address]09 14:13:00 Test Item Value Reference Range Interpretation Comments POC Activated Clotting Time (test code 354 s = POC Activated Clotting Time) [id number] 14:13:00 Test Item Value Reference Range Interpretation Comments POC Activated Clotting Time (test code 354 s = POC Activated Clotting Time) [facility]KsvblzgXNNEFLXSXK9429-59-36 14:13:00 Test Item Value Reference Range Interpretation Comments POC Activated Clotting Time (test code 354 s = POC Activated Clotting Time) [facility] AlmaCfnfabaQNQAPNZCSI2498-83-40 14:13:00 Test Item Value Reference Range Interpretation Comments POC Activated Clotting Time (test code 354 s = POC Activated Clotting Time) [facility] HospitalTxtvcihKGEPYOKZVS8428-84-92 14:13:00 Test Item Value Reference Range Interpretation Comments POC Activated Clotting Time (test code 354 s = POC Activated Clotting Time) [facility] [id number] 10:37:00Negative (08/29/20 5:37 AM) [facility] HermannCHEM WXDTZ2211-74-01 10:37:42970Bkenhjrf HermannCHEM PANEL 2020-08-29 10:37:0028[facility] HermannCHEM QAWOJ8117-94-12 10:37:001.01[facility] HermannCHEM UTRHO4305-46-55 10:37:89734Xvhggtmr HermannCHEM FLXEZ6688-10-67 10:37:003.8[facility]orial HermannCHEM YEDNM9497-37-83 10:37:61833Jctonqhn HermannCHEM PMLLE5854-30-02 10:37:0028[facility]orial HermannCHEM FAPIL5475-44-98 10:37:009.8 [facility] HermannCHEM [id number] 10:37:0011.8[facility] HermannCHEM PANEL 2020-08-29 10:37:0059Memorial HermannCHEM VIEYO7673-95-70 10:37:002.9Memorial IhicewmAZRLPJUEKE3649-21-29 10:37:006.8Memorial HylqskiMYCJSODWAC0535-59-72 10:37:004.47Memorial WjvmbfuSWIAXAMATV6126-20-93 10:37:0010.6[facility] [place] PNVGAJEZKE4679-48-34 10:37:0034.0[facility] ZjxsshlAXSKUVSZOA6342-00-08 10:37:00 76.1[facility] IlfumjzIYHCSLZPMC9700-16-95 10:37:00 Test Item Value Reference Range Interpretation Comments MCH (test code = MCH) 23.8 pg 27.0-31.0 [facility] EelticdDNFMVQDHNF8422-66-55 10:37:0031.3[facility] HermannHEMATOLOGY 2020-08-29 10:37:0018.2[facility] WnftptkLUCRBYYPUE0256-24-47 10:37:94613Cctfnzlx BazbdzdRFQUJEROBP4398-54-93 10:37:007.5[facility] CmnkpudXCZOXJUHRM2864-12-30 10:37:00 Test Item Value Reference Range Interpretation Comments PT (test code = PT) 12.8 s 12.0-14.7 [facility] BuvizpjWREFHYVTPO1391-48-15 10:37:00 Test Item Value Reference Range Interpretation Comments INR (test code = INR) 0.97 1 0.85-1.17 [facility] GzrcjihPMXPEMGWHH0083-68-00 10:37:00 Test Item Value Reference Range Interpretation Comments PTT (test code = PTT) 25.0 s 22.9-35.8 [facility] TjkqtjkQPMKIISEAF9626-40-48 10:37:0070.5[facility]annHEMATOLOGY 2020-08-29 10:37:0018.8[facility] CvkuzdlMKUOCQYWWF0563-97-41 10:37:009.5[facility] JtxmlfcMGPHSYZQLE0458-85-64 10:37:000.9[facility] ZbmcctlJOVJTDXOHG3788-47-24 10:37:000.3[facility] SrjwpqrPDPVPGYMTG4785-62-49 10:37:004.8[facility] GGSWWZGSJB0671-83-53 10:37:001.3[facility] VjyzdjfYYJNWNTPXU6624-57-40 10:37:000.6 [facility] WzeqzcsBUSQGUNHYU3846-26-16 10:37:000.1[facility]annHEMATOLOGY 2020-08-29 10:37:001+ *ABN*(08/29/20 5:37 AM)[facility] NmwksixSFPSTBBIFD5582-71-09 10:37:00Not Detected (08/29/20 5:37 AM)[facility]annBL[facility]OD BANK RESULTS 2020-08-29 10:37:00Negative (08/29/20 5:37 AM)[facility] HermannCHEM ODZTV6379-89-39 10:37:61431Ypabykon HermannCHEM QFHWW2274-13-75 10:37:0028[facility]annCHEM KYFPG0450-31-13 10:37:001.01[facility] HermannCHEM DVVGB7430-62-57 10:37:56505 [facility]annCHEM ECIQD8964-96-12 10:37:003.8[facility] HermannCHEM PANEL 2020-08-29 10:37:56900Anpnrjpl HermannCHEM JLOXU0990-11-15 10:37:0028[facility]annCHEM VVQOI0708-54-88 10:37:009.8[facility]annCHEM QDPUU9892-80-70 10:37:0011.8[facility] HermannCHEM IIVHC7876-48-01 10:37:0059[facility]annCHEM ELMFP3044-34-11 10:37:002.9[facility] RcowstmOPHCORWJEE4855-27-57 10:37:006.8 [facility] RctnstuKDKKEOHQSO2319-41-75 10:37:004.47[facility]annHEMATOLOGY 2020-08-29 10:37:0010.6[facility] AhfeotoQAETRQBHGH1821-08-06 10:37:0034.0[facility] TzolskpHIPKEAOQUS8034-29-90 10:37:0076.1[facility] QsajdonJHNLNDVNUX0026-11-19 10:37:00 Test Item Value Reference Range Interpretation Comments MCH (test code = MCH) 23.8 pg 27.0-31.0 [facility] KioozesRITPMWQVRR7263-33-18 10:37:0031.3[facility]annHEMATOLOGY 2020-08-29 10:37:0018.2[facility] BrdbvmsAJIGWDJHBP5022-83-48 10:37:70245Qsvpacbo XbatkchWNZUIRKXRG3340-54-66 10:37:007.5[facility] JhtczaqOOBFYQLKUK9587-20-34 10:37:00 Test Item Value Reference Range Interpretation Comments PT (test code = PT) 12.8 s 12.0-14.7 [facility] RtcrxiyFSOOYKXGPP3110-91-34 10:37:00 Test Item Value Reference Range Interpretation Comments INR (test code = INR) 0.97 1 0.85-1.17 [facility] ToaidtmCLZTHSQNYJ0220-09-04 10:37:00 Test Item Value Reference Range Interpretation Comments PTT (test code = PTT) 25.0 s 22.9-35.8 [facility] QlqqyvwWYPJTTKSKX6808-89-27 10:37:0070.5[facility]annHEMATOLOGY 2020-08-29 10:37:0018.8[facility] XlkgcgyRHFNOMMTKO2019-19-29 10:37:009.5[facility] KchgzufIEEJGQJZST0591-91-65 10:37:000.9[facility] XelhrvvYBXTRWZBNH3334-61-52 10:37:000.3[facility] OfrodsyNFGVBZFLIN7107-00-29 10:37:004.8[facility] TFIXAUNEWR7114-92-13 10:37:001.3[facility] DcxspyfPDAPSNIFYI1584-98-12 10:37:000.6 [facility] NujxtdfBPCKKSGSRR4120-18-86 10:37:000.1[facility]annHEMATOLOGY 2020-08-29 10:37:001+ *ABN*(08/29/20 5:37 AM)[facility] GtnurxfXEDRLBDOSU3180-23-84 10:37:00Not Detected (08/29/20 5:37 AM)[facility]annBLOOD BANK RESULTS 2020-08-29 10:37:00Negative (08/29/20 5:37 AM)[facility]annCHEM RDDKT0792-02-21 10:37:91334Xzrmonli HermannCHEM QSNBH8115-73-11 10:37:0028[facility]annCHEM JHGNN7625-90-23 10:37:001.01[facility]annCHEM JLZCL9083-76-58 10:37:77818 [facility]annCHEM IAEJN5569-41-47 10:37:003.8[facility] HermannCHEM PANEL 2020-08-29 10:37:50497Blonjsnl HermannCHEM EZPLK4078-29-44 10:37:0028[facility]annCHEM KNTAL0314-65-59 10:37:009.8[facility] HermannCHEM NPYLV9790-85-00 10:37:0011.8[facility] HermannCHEM GATPC4189-33-29 10:37:0059[facility]annCHEM OGQUV3189-67-74 10:37:002.9[facility] OroggtpJVVGQMIRPM4389-65-09 10:37:006.8 [facility] CqmpvlpZKVEUETLMR2046-96-02 10:37:004.47[facility]annHEMATOLOGY 2020-08-29 10:37:0010.6[facility] FtrbmmgZXXYAQPDLJ1115-15-07 10:37:0034.0[facility] CdisjzlUFVWRBKIRL1271-85-48 10:37:0076.1[facility] UxkwigeMHEUJZMJPC6490-89-42 10:37:00 Test Item Value Reference Range Interpretation Comments MCH (test code = MCH) 23.8 pg 27.0-31.0 [facility] FqoxbxoMGQSSVQSYZ2638-35-49 10:37:0031.3[facility]annHEMATOLOGY 2020-08-29 10:37:0018.2[facility] UwylikjZRECHTEMXE0051-97-29 10:37:29909Yzxlvndg EuzkwkzFVFQPFYSKE7538-58-28 10:37:007.5[facility] ApivqufYMGLOXCGLM5809-98-08 10:37:00 Test Item Value Reference Range Interpretation Comments PT (test code = PT) 12.8 s 12.0-14.7 [facility] UzchfliIXPVCPQQPC7137-34-47 10:37:00 Test Item Value Reference Range Interpretation Comments INR (test code = INR) 0.97 1 0.85-1.17 [facility] CibxjbsPZKHAFVITC6537-19-45 10:37:00 Test Item Value Reference Range Interpretation Comments PTT (test code = PTT) 25.0 s 22.9-35.8 [facility] EynwkwwEIHYACIDNA2807-82-56 10:37:0070.5[facility]annHEMATOLOGY 2020-08-29 10:37:0018.8[facility] LirxqdlBIAIJKUSCX1238-45-58 10:37:009.5[facility] BiljuguMGTQYVHOLH9857-41-66 10:37:000.9[facility] NntuzicFSXNOKCCWH0122-84-75 10:37:000.3[facility] MdxkfkbBTHAATAXQO6375-62-50 10:37:004.8[facility] [place] DYWJGQDOVE8756-75-70 10:37:001.3[facility] NfivpweHWGIURBLTZ0112-78-55 10:37:000.6 [facility] IwmnyelFQOZXDIIUB4766-02-73 10:37:000.1[facility]annHEMATOLOGY 2020-08-29 10:37:001+ *ABN*(08/29/20 5:37 AM)[facility] IxgoxitJMTZTNDJCE8332-06-25 10:37:00Not Detected (08/29/20 5:37 AM)[facility] GnjyfxpMUWUKVOXUK8785-88-84 10:37:0018.2[facility] HcadqhtPISDEHFTJZ4838-15-94 10:37:29065Lhdeqnpt [place] GZIDJJDZNL1902-97-93 10:37:007.5[facility] DstajazKBLNEHLTRP2298-32-96 10:37:00 Test Item Value Reference Range Interpretation Comments PT (test code = PT) 12.8 s 12.0-14.7 [facility] CerzsycKQLFGFQXRY3975-64-95 10:37:00 Test Item Value Reference Range Interpretation Comments INR (test code = INR) 0.97 1 0.85-1.17 [facility] UgvbnhzSECUOZNLQN4835-93-57 10:37:00 Test Item Value Reference Range Interpretation Comments PTT (test code = PTT) 25.0 s 22.9-35.8 [facility] FqzdmddHYCMCWVKQF0753-35-45 10:37:0070.5[facility] HermannHEMATOLOGY 2020-08-29 10:37:0018.8[facility] PyoddmuPNQLJZMFZC2902-61-37 10:37:009.5[facility] FlbarwsXOHNISMSYC6176-07-65 10:37:000.9[facility] CgdvwuhASOAFQBULH4959-68-79 10:37:000.3[facility] FmcdibrNTAVKPYLYF0761-99-49 10:37:004.8[facility] XVQDOBUAKP2503-89-38 10:37:001.3[facility] UsdyeroNCFYRHPRSQ4138-56-87 10:37:000.6 [facility] YufgiznEZJYBXFYQE9212-04-04 10:37:000.1[facility] HermannHEMATOLOGY 2020-08-29 10:37:001+ *ABN*(08/29/20 5:37 AM)[facility] FrujnjzLHZNDUEXMR2473-94-50 10:37:00Not Detected (08/29/20 5:37 AM)[facility]annBLOOD BANK RESULTS 2020-08-29 10:37:00Negative (08/29/20 5:37 AM)[facility] HermannCHEM ECDBD4016-19-63 10:37:49234Ydxwdwuq HermannCHEM UPQZY0925-84-15 10:37:0028[facility] HermannCHEM UDKGF5101-99-23 10:37:001.01[facility] HermannCHEM VOEQR3595-05-25 10:37:97541 [facility]annCHEM JVAAS0951-24-70 10:37:003.8[facility] HermannCHEM PANEL 2020-08-29 10:37:14610Hrqkvjon HermannCHEM HDBFD8964-41-16 10:37:0028[facility] HermannCHEM QBNOA8047-18-20 10:37:009.8[facility] HermannCHEM IHEOB8061-02-04 10:37:0011.8[facility] HermannCHEM VUNKD6434-37-57 10:37:0059[facility] HermannCHEM GQNPD2375-19-86 10:37:002.9[facility] IzltqnkKIPNUNZGHJ9444-12-19 10:37:006.8 [facility] FxiekvvNYUYDUPODR6750-67-35 10:37:004.47[facility]annHEMATOLOGY 2020-08-29 10:37:0010.6[facility] WtyshpdWXQFABKEOW8961-40-14 10:37:0034.0[facility] AmljzenWKGBFWUQAQ7718-78-19 10:37:0076.1[facility] WosceuuSBGECZIJNR0819-42-51 10:37:00 Test Item Value Reference Range Interpretation Comments MCH (test code = MCH) 23.8 pg 27.0-31.0 [facility] MbiiuppESXDSZHCQU6977-64-06 10:37:0031.3[facility] HermannHEMATOLOGY 2020-08-29 10:37:0018.2[facility] XxwfclfSUTMOJINAC4092-78-35 10:37:95817Izqzvhlb JosstpdCVOTUMHPDH6584-52-39 10:37:007.5[facility] KmnacrbYXLVWSJNOT6269-07-99 10:37:00 Test Item Value Reference Range Interpretation Comments PT (test code = PT) 12.8 s 12.0-14.7 [facility] MbhqgwcTHVRABQOXG4436-17-08 10:37:00 Test Item Value Reference Range Interpretation Comments INR (test code = INR) 0.97 1 0.85-1.17 [facility] VibbflcYZGAPUQPDY5146-62-29 10:37:00 Test Item Value Reference Range Interpretation Comments PTT (test code = PTT) 25.0 s 22.9-35.8 [facility] BtcvwnxYAGIJLZLPV1668-86-75 10:37:0070.5[facility]annHEMATOLOGY 2020-08-29 10:37:0018.8[facility] SbdfxlzIAUSTTCZFV5524-23-58 10:37:009.5[facility] AaugyrdQEOKWDDARK2537-31-48 10:37:000.9[facility] MxgccfnWNVSYWYMKK0541-72-47 10:37:000.3[facility] VkjgjqwTYHNOVWNPP2802-56-06 10:37:004.8[facility] [place] EKKDHDNSIG6451-66-88 10:37:001.3[facility] LoqclpsSSPQRSEWKU8821-39-26 10:37:000.6 [facility] TenrnxcHIHSIKENBA1212-57-63 10:37:000.1[facility]annHEMATOLOGY 2020-08-29 10:37:001+ *ABN*(08/29/20 5:37 AM)[facility] TznwkwmBKTLFVJDOT5071-25-78 10:37:00Not Detected (08/29/20 5:37 AM)[facility]annBLOOD BANK RESULTS 2020-08-29 10:37:00Negative (08/29/20 5:37 AM)[facility] HermannCHEM WVBVZ1655-98-77 10:37:09722Eefvxpoo HermannCHEM KCWDT1007-20-49 10:37:0028[facility] HermannCHEM DVDNA3305-68-37 10:37:001.01[facility]annCHEM HIXYT9664-64-45 10:37:81092 [facility]annCHEM JQWWT0364-46-29 10:37:003.8[facility] HermannCHEM PANEL 2020-08-29 10:37:89502Aqgkplmx HermannCHEM CQNOD9548-03-63 10:37:0028[facility] HermannCHEM CBORP1890-58-54 10:37:009.8[facility] HermannCHEM DGUHG1820-36-77 10:37:0011.8[facility] HermannCHEM ZHRUO5475-99-09 10:37:0059[facility]annCHEM JOMKN9030-19-80 10:37:002.9[facility] WaulktgZMTAPWUOZW4817-83-09 10:37:006.8 [facility] BnuqsqwJZUQRTARCH5814-41-42 10:37:004.47[facility]annHEMATOLOGY 2020-08-29 10:37:0010.6[facility] IlcaqxhWIISGMVHBL5508-80-24 10:37:0034.0[facility] RcdanwpVUMRQREXJW9466-16-26 10:37:0076.1[facility] IcxtanxGXNFJQUNNP7633-21-26 10:37:00 Test Item Value Reference Range Interpretation Comments MCH (test code = MCH) 23.8 pg 27.0-31.0 [facility] HekstmqTWCMEXFZGY4958-47-79 10:37:0031.3[facility] HermannCHLAMYDIA, GC, TV,PCR, IN IFKCK5475-25-81 15:38:00 Test Item Value Reference Range Interpretation Comments FT (test code = CHTR) Not detected (qualifier Not Detected N value) FT (test code = Not detected (qualifier Not Detected N NGONO) value) FT (test code = TRVG) Not detected (qualifier Not Detected N value) URINALYSIS WITH TCCXKUSUORU1143-43-28 10:57:00 Test Item Value Reference Range Interpretation Comments Color (test code = UCOLR) Dk. Yellow Clarity (test code = UCLAR) Hazy Glucose (test code = UGLUC) NEGATIVE NEGATIVE N Bilirubin (test code = UBILI) NEGATIVE NEGATIVE N Ketones (test code = UKET) NEGATIVE NEGATIVE N Specific [place] (test code = 1.025 1.005-1.030 A USPGR) [...]
[2021-01-31] MEDS ORDERED: ONDANSETRON 4 MG/2 ML VIAL ONE (11:35)
[2021-01-31] MEDS ORDERED: MORPHINE 4 MG/ML SYR ONE ×2 (11:35→12:33)
[2021-01-31] MEDS ORDERED: METHYLPREDNISOLONE 125 MG INJ ONE (11:35)
[2021-01-31] MEDS ORDERED: LEVALBUTEROL 1.25 MG/3 ML NEB ONE (11:36)
--- NOTE | 2021-01-31 11:43 | RAD REPORT ---
EXAM DESCRIPTION: RAD - Chest Single View - 01/31/2021 11:16 am CLINICAL HISTORY: SOB COMPARISON: Chest Single View dated 01/28/2021; Chest Single View dated 12/16/2020; Chest Single View d ated 09/29/2020; Chest Single View dated 07/30/2020 FINDINGS: Lines: None. Lungs: No evidence of edema or pneumonia. Pleural: No significant pleural effusions or pneumothorax. Cardiac: Mild cardiomegaly . Bones: No acute fractures. Bilateral shoulder arthroplasties . Other: IMPRESSION: No acute cardiopulmonary disease.
[2021-01-31 11:54] LABS: Protime INR 1.19
[2021-01-31 12:09] LABS: ALT/SGPT 42 U/L (12-78); AST/SGOT 49 U/L (15-37); Albumin 3.1 g/dL (3.4-5.0); Alkaline Phosphatase 67 U/L (45-117); BUN Blood Urea Nitrogen 19 mg/dL (7-18); Bicarbonate 26 mmol/L (21-32); Bilirubin Direct 0.1 mg/dL (0-0.2); Bilirubin Total 0.4 mg/dL (0.2-1.0); C-Reactive Protein 5.62 mg/L (<3.00); Ferritin 15.1 ng/mL (8-388); Glucose Level 106 mg/dL (74-106); Magnesium 2.1 mg/dL (1.8-2.4); NT PRO-BNP 782 pg/mL (<125); Potassium 3.3 mmol/L (3.5-5.1); Protein, Total 6.7 g/dL (6.4-8.2); Sodium Level 142 mmol/L (136-145); Troponin (Emerg Dept Use Only) < 0.02 ng/mL (0.0-0.045)
[2021-01-31 12:41] LABS: Absolute Lymphocytes (CBC) 1.4 K/uL (0.7-4.9); Basophils % 0.5 % (0-1.3); Hematocrit 31.8 % (36.0-45.0); Lymphocytes % 20.3 % (15.3-44.8)
--- NOTE | 2021-01-31 12:53 | ER ---
Nurse's Notes [facility] Name: Marjan Fleming Age: 66 yrs Sex: Female : 1955 Arrival Date: 01/31/2021 Time: 10:17 Bed 7 Private MD: Diagnosis: Headache;COPD/ Chronic obstructive pulmonary disease, unspecified;Acute stress reaction Presentation: 01/31 10:21 Chief complaint: Patient states: Headache for x4 days. States nauseated and dizzy, vg1 denies blurred vision. States headache begins in the back of the head and radiates to the front of the head. Coronavirus screen: Vaccine status: Patient reports receiving the 2nd dose of the covid vaccine. Client denies travel out of the [place] in the last 14 days. Ebola Screen: Patient negative for fever greater than or equal to 101.5 degrees Fahrenheit, and additional compatible Ebola Virus Disease symptoms. Initial Sepsis Screen: Does the patient meet any 2 criteria? No. Patient's initial sepsis screen is negative. Does the patient have a suspected source of infection? No. Patient's initial sepsis screen is negative. Risk Assessment: Do you want to hurt yourself or someone else? Patient reports no desire to harm self or others. Onset of symptoms was January 27, 2021. 10:21 Method Of Arrival: Ambulatory vg1 10:21 Acuity: BLAYNE 3 vg1 Triage Assessment: 10:24 General: Appears in no apparent distress. uncomfortable, Behavior is calm, cooperative. vg1 Pain: Complains of pain in head Pain currently is 9 out of 10 on a pain scale. Respiratory: Reports shortness of breath on exertion Onset: The symptoms/episode began/occurred the patient has mild shortness of breath. Historical: - Allergies: 10:24 Bactrim DS; vg1 10:24 butorphanol tartrate; vg1 10:24 Fentanyl; vg1 10:24 metoclopramide HCl; vg1 10:24 Reglan; vg1 10:24 Stadol; vg1 10:24 sulfamethoxazole (bulk); vg1 10:24 TRIMETHOPRIM; vg1 - Home Meds: 10:24 amiodarone 200 mg Oral tab 1 tab once daily [Active]; BuSpar Oral [Active]; Descovy vg1 Oral [Active]; Eliquis 5 mg Oral tab 1 tab 2 times per day [Active]; Hydralazine Oral [Active]; lisinopril Oral [Active]; Metformin Oral [Active]; Metoprolol Tartrate Oral [Active]; Norvasc Oral [Active]; raltegravir Oral [Active]; sertraline Oral [Active]; - PMHx: 10:24 Anxiety; Atrial Fib; Bipolar disorder; Chronic pain; COPD; esophageal varices; vg1 Hepatitis; HIV; Hypertension; Migraines; Panic Attacks; - PSHx: 10:24 hernia repair; vg1 - Immunization history:: Adult Immunizations up to date, Client reports receiving the 2nd dose of the Covid vaccine. - Social history:: Smoking status: Patient denies any tobacco usage or history of. Screenin:51 Abuse screen: Denies threats or abuse. Denies injuries from another. Nutritional hb screening: No deficits noted. Tuberculosis screening: No symptoms or risk factors identified. Fall Risk None identified. Assessment: 11:00 General: Appears in no apparent distress. uncomfortable, Behavior is calm, cooperative. hb Pain: Pain currently is 9 out of 10 on a pain scale. Neuro: Level of Consciousness is awake, alert, obeys commands, Oriented to person, place, time, situation, Reports headache. Cardiovascular: Patient's skin is warm and dry. Rhythm is regular. Respiratory: Respiratory effort is even, unlabored, Respiratory pattern is regular, symmetrical. GI: Reports nausea. : No signs and/or symptoms were reported regarding the genitourinary system. EENT: No signs and/or symptoms were reported regarding the EENT system. Derm: Skin is clammy. Musculoskeletal: No signs and/or symptoms reported regarding the musculoskeletal system. Vital Signs: 10:21 BP 153 / 93; Pulse 64; Resp 20; Temp 98.5(O); Pulse Ox 97% ; Weight 97.52 kg; Height 5 vg1 ft. 4 in. (162.56 cm); Pain 9/10; 14:37 BP 131 / 67; Pulse 70; Resp 18; Pulse Ox 97% on R/A; Pain 0/10; ch5 10:21 Body Mass Index 36.90 (97.52 kg, 162.56 cm) vg1 ED Course: 10:17 Patient arrived in ED. ds1 10:24 Triage completed. vg1 10:24 Arm band placed on. vg1 10:45 Austin Raza NP is PHCP. pm1 10:45 Ramon Baker MD is Attending Physician. pm1 11:08 Hoang Snider RN is Primary Nurse. ch5 11:16 XRAY Chest (1 view) In Process Unspecified. EDMS 11:35 Inserted saline lock: 20 gauge in right ,using aseptic technique. shoulder, by Beny RAMIREZ hb Blood collected. 11:51 Patient has correct armband on for positive identification. Bed in low position. Call hb light in reach. 14:37 No provider procedures requiring assistance completed. intact. ch5 Administered Medications: 11:01 CANCELLED (Physician Discretion): Albuterol 5 mg Inhalation once pm1 11:37 Drug: SOLU-Medrol (methylPrednisoLONE) 125 mg Route: IVP; Site: left upper arm; ch5 13:30 Follow up: Response: No adverse reaction ch5 11:37 Drug: morphine 4 mg Route: IVP; Site: left upper arm; ch5 13:31 Follow up: Response: Pain is decreased ch5 11:37 Drug: Zofran (Ondansetron) 4 mg Route: IVP; Site: left upper arm; ch5 13:31 Follow up: Response: No adverse reaction ch5 11:39 Drug: Xopenex (levalbuterol) (3) 1.25 mg Route: Inhalation; ch5 12:15 Drug: morphine 4 mg Route: IVP; Site: left upper arm; ch5 13:32 Follow up: Response: Pain is decreased ch5 13:15 Drug: Demerol (meperidine) 25 mg Route: IVP; Site: left upper arm; ch5 13:23 Drug: Phenergan (promethazine) 12.5 mg Route: IVP; Site: left upper arm; ch5 14:12 Follow up: Response: Nausea is decreased ch5 Outcome: 12:52 Discharge ordered by . pm1 14:37 Discharged to home via wheelchair, with family. ch5 14:37 Condition: improved 14:37 Discharge instructions given to patient. 14:38 Patient left the ED. ch5 Signatures: Dispatcher [employer] EDMI Lainey Monson ds1 Austin Raza NP CONTROL ANALYST pm1 Tata Rivera RN RN hb Garcia, Victoria, RN RN vg1 Hoang Snider, RN RN ch5
--- NOTE | 2021-01-31 12:53 | EDPHYS ---
Physician Documentation [facility] Name: Marjan Fleming Age: 66 yrs Sex: Female : 1955 Arrival Date: 01/31/2021 Time: 10:17 Bed 7 Private MD: ED Physician Ramon Baker HPI: 01/31 11:06 This 66 yrs old Female presents to ER via Ambulatory with complaints of pm1 Shortness Of Breath, Headache. 11:06 The patient has shortness of breath at rest. Onset: The symptoms/episode began/occurred pm1 4 day(s) ago. Duration: The symptoms are continuous. The patient's shortness of breath is aggravated by Stress: started drinking alcohol again. 11:06 Associated signs and symptoms: Pertinent positives: nausea, Dizziness, Pertinent pm1 negatives: chest pain, non-productive cough, productive cough, fever, visual changes. Severity of symptoms: in the emergency department the symptoms are unchanged. The patient has been recently seen at the [facility] Emergency Department, this week, for similar complaints labs were performed. Patient presents ER with complaints of headache and shortness of breath. Patient was seen here previously this week for the same complaint onset after she got home from vacation and found that her started drinking alcohol again. Typically she is at home to prevent her from relapsing. She expresses stress over his drinking. Historical: - Allergies: 10:24 Bactrim DS; vg1 10:24 butorphanol tartrate; vg1 10:24 Fentanyl; vg1 10:24 metoclopramide HCl; vg1 10:24 Reglan; vg1 10:24 Stadol; vg1 10:24 sulfamethoxazole (bulk); vg1 10:24 TRIMETHOPRIM; vg1 - Home Meds: 10:24 amiodarone 200 mg Oral tab 1 tab once daily [Active]; BuSpar Oral [Active]; Descovy vg1 Oral [Active]; Eliquis 5 mg Oral tab 1 tab 2 times per day [Active]; Hydralazine Oral [Active]; lisinopril Oral [Active]; Metformin Oral [Active]; Metoprolol Tartrate Oral [Active]; Norvasc Oral [Active]; raltegravir Oral [Active]; sertraline Oral [Active]; - PMHx: 10:24 Anxiety; Atrial Fib; Bipolar disorder; Chronic pain; COPD; esophageal varices; vg1 Hepatitis; HIV; Hypertension; Migraines; Panic Attacks; - PSHx: 10:24 hernia repair; vg1 - Immunization history:: Adult Immunizations up to date, Client reports receiving the 2nd dose of the Covid vaccine. - Social history:: Smoking status: Patient denies any tobacco usage or history of. ROS: 11:06 Constitutional: Negative for fever, chills, and weight loss, Cardiovascular: Negative pm1 for chest pain, palpitations, and edema. 11:06 Abdomen/GI: Negative for abdominal pain, nausea, vomiting, diarrhea, and constipation, MS/Extremity: Negative for injury and deformity, Skin: Negative for injury, rash, and discoloration. 11:06 Respiratory: Positive for shortness of breath, Negative for cough. 11:06 Neuro: Positive for dizziness, headache, Negative for numbness, tingling, weakness. 11:06 All other systems are negative. Exam: 11:06 Constitutional: This is a well developed, well nourished patient who is awake, alert, pm1 and in no acute distress. Head/Face: Normocephalic, atraumatic. 11:06 Back: No spinal tenderness. No costovertebral tenderness. Full range of motion. Skin: Warm, dry with normal turgor. Normal color with no rashes, no lesions, and no evidence of cellulitis. MS/ Extremity: Pulses equal, no cyanosis. Neurovascular intact. Full, normal range of motion. 11:06 Cardiovascular: Exam negative for acute changes, Rate: normal, Rhythm: regular, Pulses: no pulse deficits are appreciated, Heart sounds: normal, normal S1and S2. 11:06 Respiratory: the patient does not display signs of respiratory distress, Respirations: normal, Breath sounds: wheezing: expiratory that is mild, is heard in the right upper lobe and left upper lobe. 11:06 Abdomen/GI: Exam negative for acute changes, Inspection: abdomen appears normal, Palpation: abdomen is soft and non-tender, in all quadrants. 11:06 Neuro: Exam negative for acute changes, Orientation: is normal, Mentation: is normal, Motor: is normal, moves all fours, Sensation: is normal, no obvious gross deficits. Vital Signs: 10:21 BP 153 / 93; Pulse 64; Resp 20; Temp 98.5(O); Pulse Ox 97% ; Weight 97.52 kg; Height 5 vg1 ft. 4 in. (162.56 cm); Pain 9/10; 14:37 BP 131 / 67; Pulse 70; Resp 18; Pulse Ox 97% on R/A; Pain 0/10; ch5 10:21 Body Mass Index 36.90 (97.52 kg, 162.56 cm) vg1 MDM: 10:47 Patient medically screened. pm1 12:48 ED course: And denies improvement and headache symptoms with pain medicine given in the pm1 ER. Impression is headache is likely tension headache in nature due to the stress of 's drinking. Therefore informed her I would like to give Toradol, Benadryl, and Reglan for treatment. However patient reports allergy to Toradol and Reglan. Her stated allergy is the ineffectiveness of those medications for addressing pain and nausea. Patient is requesting additional pain medicine, specifically Demerol. 12:54 Data reviewed: vital signs. Data interpreted: Pulse oximetry: on room air is 97 %. pm1 Interpretation: normal. 01/31 11:00 Order name: Basic Metabolic Panel pm1 01/31 11:00 Order name: CBC with Diff pm1 01/31 11:00 Order name: LFT's; Complete Time: 12:20 pm1 01/31 11:00 Order name: Magnesium; Complete Time: 12:20 pm1 01/31 11:00 Order name: NT PRO-BNP; Complete Time: 12:20 pm1 01/31 11:00 Order name: PT-INR; Complete Time: 12:01 pm1 01/31 11:00 Order name: Troponin (emerg Dept Use Only); Complete Time: 12:20 pm1 01/31 11:00 Order name: XRAY Chest (1 view); Complete Time: 12:01 pm1 01/31 11:00 Order name: Ferritin; Complete Time: 12:20 pm1 01/31 11:00 Order name: CRP; Complete Time: 12:20 pm1 01/31 11:01 Order name: Basic Metabolic Panel; Complete Time: 12:20 EDMS 01/31 11:01 Order name: CBC with Automated Diff; Complete Time: 13:23 EDMS 01/31 12:48 Order name: CBC Smear Scan; Complete Time: 13:23 EDMS 01/31 11:00 Order name: EKG; Complete Time: 11: pm1 01/31 11:00 Order name: Cardiac monitoring; Complete Time: :49 pm1 01/31 11:00 Order name: EKG - Nurse/Tech; Complete Time: :49 pm1 01/31 11:00 Order name: IV Saline Lock; Complete Time: 11:49 pm1 01/31 11:00 Order name: Labs collected and sent; Complete Time: :49 pm01/31 11:00 Order name: O2 Per Protocol; Complete Time: :49 pm01/31 11:00 Order name: O2 Sat Monitoring; Complete Time: :49 pm1 Administered Medications: 11: CANCELLED (Physician Discretion): Albuterol 5 mg Inhalation once pm1 11:37 Drug: SOLU-Medrol (methylPrednisoLONE) 125 mg Route: IVP; Site: left upper arm; ch5 13:30 Follow up: Response: No adverse reaction ch5 11:37 Drug: morphine 4 mg Route: IVP; Site: left upper arm; ch5 13:31 Follow up: Response: Pain is decreased ch5 11:37 Drug: Zofran (Ondansetron) 4 mg Route: IVP; Site: left upper arm; ch5 13:31 Follow up: Response: No adverse reaction ch5 11:39 Drug: Xopenex (levalbuterol) (3) 1.25 mg Route: Inhalation; ch5 12:15 Drug: morphine 4 mg Route: IVP; Site: left upper arm; ch5 13:32 Follow up: Response: Pain is decreased ch5 13:15 Drug: Demerol (meperidine) 25 mg Route: IVP; Site: left upper arm; ch5 13:23 Drug: Phenergan (promethazine) 12.5 mg Route: IVP; Site: left upper arm; ch5 14:12 Follow up: Response: Nausea is decreased ch5 Disposition: 18:16 Co-signature as Attending Physician, Ramon Baker MD I agree with the assessment and rn plan of care. Attestation: The patient's history, exam findings, diagnostics, and a summary of any interventions or procedures was reviewed in detail with Austin Raza NP. Disposition Summary: 01/31/21 12:52 Discharge Ordered Location: Home pm1 Problem: new pm1 Symptoms: have improved pm1 Condition: Stable pm1 Diagnosis - Headache pm1 - COPD/ Chronic obstructive pulmonary disease, unspecified pm1 - Acute stress reaction pm1 Followup: pm1 - With: Emergency Department - When: As needed - Reason: Worsening of condition Followup: pm1 - With: Private Physician - When: 2 - 3 days - Reason: Recheck today's complaints, Continuance of care, Re-evaluation by your physician Discharge Instructions: - Discharge Summary Sheet pm1 - General Headache Without Cause pm1 - Chronic Obstructive Pulmonary Disease, [id number] pm1 - Stress, Adult pm1 - Managing Stress, Adult pm1 Forms: - Medication Reconciliation Form pm1 - Thank You Letter pm1 - Antibiotic Education pm1 - Prescription Opioid Use pm1 Signatures: Dispatcher [employer] EDMS Ramon Baker MD MD rn Marinas, Patrick, NP NURSING HOME DIRECTOR pm1 Renae Camarillo RN RN vg1 Hoang Snider RN RN ch5 Corrections: (The following items were deleted from the chart) 11:01 11:01 Albuterol 5 mg Inhalation once ordered. pm1 pm1
[2021-01-31 13:12] LABS: Anisocytosis 1+; Blood Morphology Comment NOTED (NOT SEEN); Platelet Estimate ADEQ; Polychromasia SLIGHT; White Blood Cell Scan OK (OK)
[2021-01-31 13:13] LABS: Hypochromasia 1+
[2021-01-31] MEDS ORDERED: MEPERIDINE HCL 25 MG/ML SYR ONE (13:26)
[2021-01-31] MEDS ORDERED: NA CHLORIDE 0.9% 50 ML ONE (13:41)
[2021-01-31] MEDS ORDERED: PROMETHAZINE INJ 25 MG/ML AMP ONE (13:41)
[2021-01-31 14:51] VITALS: TEMP 98.5; O2SAT 97
[2021-01-31 14:53] VITALS: BP 131/67
== END 2021-01-31 14:38 | disposition home or self-care (01) ==
LOC: ER 09:58
DX: F43.0 Acute stress reaction (principal); J44.9 Chronic obstructive pulmonary disease, unspecified; I10 Essential (primary) hypertension; F31.9 Bipolar disorder, unspecified; Z21 Asymptomatic human immunodeficiency virus [HIV] infection status; Z79.01 Long term (current) use of anticoagulants; Z88.1 Allergy status to other antibiotic agents; Z88.2 Allergy status to sulfonamides; Z88.5 Allergy status to narcotic agent; Z88.8 Allergy status to other drugs, medicaments and biological substances
CPT/HCPCS: 93005; 85025; 80048; 36415; 83735; 85610; 80076; 84484; 82728; 83880; 86140; 71045; 96375; 96374; 99284; J2550; J2175; J2930; J2405

== ENCOUNTER 2021-02-01 12:09 | Emergency (ER) | payer OTHER ==
--- OUTSIDE RECORDS SUMMARY | 2021-02-01 12:12 | XMS REPORT | Continuity of Care Document ---
:1955 Author Organization [facility] t Address [address] [place] [address] Care Team Providers Name Role Phone Rahman Primary Care Physician HEMATPOUR Attending Clinician Unavailable Shelia JENKINS H Attending Clinician Ebrayocasta SALGUERO Attending Clinician Lab, Fam Pob I Attending Clinician Unavailable Doctor Unassigned, Name Attending Clinician Unavailable Devin SALGUERO R Attending Clinician [facility] Attending Clinician Unavailable Ronald DHILLON Attending Clinician Diana SANCHEZ Attending Clinician Unavailable DO SYL Attending Clinician Unavailable DO SYL Admitting Clinician Unavailable Payers Payer Name Policy Type Policy Number Effective Date Expiration Date S gabino [facility] [id number] 2012 STAR PLUS 00:00:00 Problems Condition Condition Condition Status Onset Resolution Last Treating Co mments Source Name Details Category Date Date Treatment Clinician Date Obesity Obesity Disease Active 2015-05 Univers (BMI (BMI 2-19 ity of 30-39.9) 30-39.9) 00:00: [place] [facility] Anemia Anemia Disease Active 2014-05 Univers 0-03 ity of 00:00: [place] [facility] Hypovolemi Hypovolemi Disease Active 2014-05 U nivers a due to a due to 0-02 [place] of hemorrhage hemorrhage [place] [facility] Chest pain Chest pain Disease Active 2014-05 U nivers 0- ity of 00:00: [place] [facility] 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:00: [place] shoulder shoulder 00 Medica l arthroplas arthroplas Br anch ty ty Posttrauma Posttrauma Disease Active U nivers tic stress tic stress 09-27 it y of disorder disorder 00:00: [place] [facility] 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 00:00: [place] virus virus Medical (HIV) (HIV) Branch disease disease Bipolar 2 Bipolar 2 Disease Active Uni vers disorder disorder 11-18 ity of 00:00: [place] [facility] Chronic Chronic Disease Active Univers hepatitis hepatitis 11-18 ity of C C 00:00: Medical Branch Hypertensi Hypertensi Disease Active U nivers on on 11-18 ity of 00:00: [place] [facility] Allergies, Adverse Reactions, Alerts Allergy Allergy Status Severity Reaction(s) Onset Inactive Treating Comm ents Source Name Type Date Date Clinician Butorpha Drug Active Unknown - Unive rs nol Allergy See comments 11-25 ity of 00:00: [place] [facility] Fentanyl Drug Active Other - See Unknown Un matt Allergy comments 2 reaction ity o f 00:00: [place] [facility] [...] reaction 00 Medical s to Branch drug Family History Family Member Diagnosis Comments Start Date Stop Date Source Father Diabetes [facility] Father Other - see comments [facility] [place] [facility] [place] Father Coronary Heart [facility] Disease [facility] Mother Cancer [facility] Social History Social Habit Start Date Stop Date Quantity Comments Source Exposure to Not sure [facility] SARS-CoV-2 [facility] (event) Branch Tobacco use and 2021-01-28 2021-01-28 Former user Universi ty of exposure 00:00:00 00:00:00 [facility] Alcohol intake 2021-01-28 2021-01-28 Current University of 00:00:00 00:00:00 non-drinker of [facility] alcohol (finding) Branch Tobacco Comment 2015-02-14 2015-02-14 Smokes approx 1-2 Un iversity of 00:00:00 00:00:00 cigarettes per day [facility] when she smokes Branch History of 2011-09-29 User of smokeless Univers ity of tobacco use 00:00:00 tobacco [facility] Sex [birth year] Universit y of 00:00:00 00:00:00 [facility] Smoking Status Start Date Stop Date Source Former smoker 2021-01-28 00:00:00 2021-01-28 00:00:00 Universi ty of [facility] Medications Ordered Filled Start Stop Current Ordering Indication Dosage Frequency Signature Comments Components Source Medication Medication Date Date Medication? Clinician (SIG) Name Name buPROPion Yes [id number] 150mg Take 1 U nivers XL 9-08 tablet by ity of (WELLBUTRIN 00:00: mouth [place] XL) 150 mg 00 daily. Medical 24 hr Branch tablet SERTraline Yes [id number] 200mg Take 2 Univers 100 mg 9-08 tablets by ity of tablet 00:00: mouth [place] 00 daily. Medical Branch busPIRone Yes [id number] 30mg Take 1 Un matt 30 mg 8-30 tablet by ity of tablet 00:00: mouth 2 [place] 00 (two) Medical times Branch daily. LORazepam 2 Yes [id number] 2mg Take 1 Univers mg tablet 8-30 tablet by ity o f 00:00: mouth 2 [place] 00 (two) Medical times Branch daily as needed (anxiety). nystatin-tr Yes [id number] Apply to [facility] iamcinolone 11-25 area(s) 3 ity of cream 00:00: (three) [place] 00 times Medical daily. Branch emtricitabi Yes [id number] Take one Univers ne-tenofovi 11-25 po daily ity of r alafen 00:00: [place] (DESCOVY) 00 Medical tablet Branch raltegravir Yes [id number] 400mg Take 1 Univers (ISENTRESS) 6-11 tablet by ity of 400 mg 00:00: mouth 2 [place] tablet 00 (two) Medical times Branch daily. LORazepam 2 2020- No [id number] 2mg Take 1 Univers mg tablet 6-11 08-30 tablet by ity of 00:00: 00:00 mouth 2 [place] 00 :00 (two) Medical times Branch daily as needed (anxiety). buPROPion 2020- No [id number] 150mg Take 1 Univers XL 10-22-08 tablet by ity of (WELLBUTRIN 00:00: 00:[place] XL) 150 mg 00 :00 daily. Medical 24 hr Branch tablet SERTraline 2020- No [id number] 200mg Take 2 Univers 100 mg 10-22 09-08 tablets by ity of tablet 00:00: 00:00 mouth [place] 00 :00 daily. Medical Branch busPIRone 2020- No [id number] 30mg Take 1 U nivers 30 mg 6- 08-30 tablet by ity of tablet 00:00: 00:00 mouth 2 [place] 00 :00 (two) Medical times Branch daily. apixaban Yes 5mg Take 5 mg Univ [...] Univers 90 4-14 ity of mcg/actuati 00:00: [place] on inhaler 00 [facility] Immunizations Ordered Filled Immunization Date Status Comments Sour e Immunization Name Name Influenza Virus 2017-03-08 Completed Universit y of Vaccine 00:00:00 [facility] Influenza Virus 2014-01-30 Completed Universit y of Vaccine (3+ yrs) 00:00:00 [facility] [place] [facility] dical Branch Pneumococcal 13 2014-01-30 Completed Universit y of Conjugate, PCV13 00:00:00 [facility] [place] [facility] dical (Prevnar 13) Branch Pneumococcal 2012-02-16 Completed University o f Polysaccharide, 00:00:00 [facility] PPSV23 (PNEUMOVAX) Branch Influenza Virus 2012-02-16 Completed Universit y of Vaccine 00:00:00 [facility] PPD (TB) 2012-02-16 Completed University of 00:00:00 [facility] Hep B, Adol or Pedi 2011-09-01 Completed Unive rsity of Dosage 00:00:00 [facility] Hep B, Adol or Pedi 2011-03-17 Completed Unive rsity of Dosage 00:00:00 [facility] Influenza Virus 2011-02-10 Completed Universit y of Vaccine 00:00:00 [facility] Hep B, Adol or Pedi 2011-02-10 Completed Unive rsity of Dosage 00:00:00 [facility] PPD (TB) 2010-11-18 Completed University of 00:00:00 [facility] TDAP (ADACEL) 2010-11-18 Completed University of VACCINE 00:00:00 [facility] HEPATITIS A 2004-03-02 Completed University of 00:00:00 [facility] HEPATITIS A 2003-08-01 Completed University of 00:00:00 [facility] Pneumococcal 2001-10-04 Completed University o f Polysaccharide, 00:00:00 [facility] ical PPSV23 (PNEUMOVAX) Branch PPD (TB) 2001-10-04 Completed University of 00:00:00 [facility] Vital Signs Vital Name Observation Time Observation Value Comments Source Systolic blood 2021-01-28 14:08:00 141 mm[Hg] Univer sity of pressure [facility] Diastolic blood 2021-01-28 14:08:00 79 mm[Hg] Unive rsity of pressure [facility] Heart rate 2021-01-28 14:08:00 56 /min [facility] Respiratory rate 2021-01-28 14:02:00 18 /min [facility] Body height 2021-01-28 14:02:00 162.6 cm [facility] Body weight 2021-01-28 14:02:00 99.111 kg [facility] BMI 2021-01-28 14:02:00 37.51 kg/m2 [facility] Body temperature 2020-12-02 14:14:00 36.83 Amina [facility] Oxygen saturation in 2020-01-26 18:00:00 92 /min [facility] Arterial blood by [facility] Pulse oximetry Branch Procedures Procedure Date / Time Performing Clinician Source Performed COVID-19 (MOLECULAR 2021-01-02 17:28:00 Alfredo [facility] TESTING [facility] NUCLEIC ACID AMPLIFICATION) LAB ONLY COVID 2021-01-02 17:28:00 Michael-Pelletier, [facility] [place] INTERPRETATION [facility] HUMAN IMMUNODEFICIENCY 2020-12-02 15:42:00 Santiago Cardenas [facility] VIRUS 1 (HIV-1) BY [facility] QUANTITATIVE NAAT CD4 SUBSET ASSAY 2020-12-02 15:42:00 Santiago Cardenas [facility] GLYCOSYLATED HEMOGLOBIN 2020-12-02 15:42:00 Ronald Santiago [facility] (A1C) Medical [place] BASIC METABOLIC PANEL (NA, 2020-12-02 15:42:00 Santiago Cardenas [facility] K, CL, CO2, GLUCOSE, BUN, Medica l [place] CREATININE, CA) GALV ONLY - VAGINAL 2020-11-25 18:19:00 Robbi Beltran [facility] PATHOGENS BY NUCLEIC ACID [facility] TESTING CONSENT/REFUSAL FOR 2020-11-25 15:41:40 Doctor Unasseunice, [facility] DIAGNOSIS AND TREATMENT [place] [facility] [place] ASSIGNMENT OF BENEFITS 2020-11-25 15:41:12 Doctor Unassigned, [facility] [place] [facility] [place] Encounters Start End Encounter Admission Attending Care Care Encounter Source Date/Time Date/Time Type Type Clinicians Facility Department ID 2020-12-12 Outpatient HEMATPOUR, [facility] [id number] [place] 08:16:46 [facility] 2020-12-12 Outpatient HEMATPOUR, [facility] [id number] [place] 07:42:11 [facility] 2020-10-31 Outpatient HEMATPOUR, [facility] [id number] [place] 09:44:50 [facility] 2020-10-31 Outpatient HEMATPOUR, [facility] [id number] [place] 07:54:08 [facility] 2020-09-30 Outpatient HEMATPOUR, [facility] [id number] [place] 13:16:03 [facility] 2021-01-28 2021-01-28 Travel 1.2.840.1 [id number] [id number] Univers 00:00:00 00:00:00 30004.1.1 350.1.13.10 ity of 3.104.2.7 4.2.7.3.698 [place] .3.059868 084.8 Medica l .8 [place] 2021-01-04 2021-01-04 Letter Shelia 1.2.840.4 [id number] Univers 00:00:00 00:00:00 (Out) Dagoberto H 66620.1.1 ity of 3.104.2.7 [place] .3.961037 Medica l .8 [place] 2021-01-03 2021-01-03 Letter Shelia 1.2.840.9 [id number] Univers 00:00:00 00:00:00 (Out) Dagoberto H 41024.1.1 ity of 3.104.2.7 [place] .3.087824 Medica l .8 [place] 2021-01-02 2021-01-02 Laboratory [place] Franks 1.2.840.5 [id number] Univers 12:14:13 12:57:34 Only Lab, [facility] Fam [place]ob I 50146.1.1 ity of 3.104.2.7 [place] .3.592894 Medica l .8 [place] 2021-01-02 2021-01-02 Travel 1.2.840.1 1.2.228.390 [id number] Univers 00:00:00 00:00:00 14474.1.1 350.1.13.10 ity of 3.104.2.7 4.2.7.3.698 [place] .3.342201 084.8 Medica l .8 [place] 2021-01-02 2021-01-02 Letter Doctor 1.2.840.7 [id number] Univers 00:00:00 00:00:00 (Out) Unassigned, 38538.1.1 ity of [place] 3.104.2.7 [place] .3.950553 Medica l .8 [place] 2021-01-02 2021-01-02 Letter Doctor 1.2.840.3 [id number] Univers 00:00:00 00:00:00 (Out) Unassigned, 97382.1.1 ity of [place] 3.104.2.7 [place] .3.456064 Medica l .8 Branch 2020-12-22 2020-12-22 Telephone Devin, 1.2.840.9 [id number] [facility] 00:00:00 00:00:00 Robbi Hairston 80602.1.1 i ty of 3.104.2.7 [place] .3.169526 Medica l .8 Branch 2020-12-12 2020-12-12 Office Hematpour, UTP 6400 1.2.840.114 [id number] 07:42:02 08:18:50 Visit Maríalou JOSEPH 350.1.13.58 9.2.7.2.686 [id number] 1 2020-12-02 2020-12-02 Pin Chaser [facility] UNIVERSIT 1.2.840.114 [id number] 10:20:06 10:36:19 Visit [facility] 350.1.13.10 [facility] 4.2.7.2.686 [id number] 2020-12-02 2020-12-02 Pin Chaser Santiago Cardenas 1.2.840.1 [id number] [facility] 10:20:06 10:36:19 Visit [facility] 77654.1.1 ity of 3.104.2.7 [place] .3.069795 Medica l .8 Branch 2020-12-02 2020-12-02 Office Ronald 1.2.840.9 [id number] Univers 08:31:37 09:01:37 Visit Santiago 75320.1.1 ity of 3.104.2.7 [place] .3.979823 Medica l .8 Branch 2020-11-25 2020-11-25 Office MEGHA Beltran 1.2.840.114 [id number] 11:06:30 11:58:14 Visit Robbi Hairston ALL PURPOSE CLERK 350.1.13.10 [facility] 4.2.7.2.686 MATERNAL [id number] & CHILD [address] [place] [address] 2020-11-25 2020-11-25 Office Devin 1.2.840.7 [id number] Univers 11:06:30 11:58:14 Visit Robbi Marika 17714.1.1 i ty of 3.104.2.7 [place] .3.096592 Medica l .8 [place] 2020-11-25 2020-11-25 [facility] 1.2.860.234 [id number] 00:00:00 00:00:00 [facility] 350.1.13.10 [facility] 4.2.7.2.686 [id number] 2020-11-25 2020-11-25 Telephone [facility] 1.2.778.841 [id number] 00:00:00 00:00:00 Eligiomeredith Hairston ALL PURPOSE CLERK 350.1.13.10 [facility] 4.2.7.2.686 MATERNAL [id number] & CHILD [address] [place] [address] 2020-11-25 2020-11-25 Telephone Beltran 1.2.840.5 [id number] Univers 00:00:00 00:00:00 Robbi Marika 45705.1.1 i ty of 3.104.2.7 [place] .3.973934 Medica l .8 [place] 2020-11-25 2020-11-25 Refill [facility], 1.2.840.6 [id number] Univers 00:00:00 00:00:00 Santiago 90984.1.1 ity of 3.104.2.7 [place] .3.361704 Medica l .8 [place] 2020-11-25 2020-11-25 Travel 1.2.840.1 [id number] [id number] Univers 00:00:00 00:00:00 61299.1.1 350.1.13.10 ity of 3.104.2.7 4.2.7.3.698 [place] .3.432472 084.8 Medica l .8 [place] 2020-11-25 2020-11-25 Orders Doctor 1.2.840.3 [id number] Univers 00:00:00 00:00:00 Only Unassigned, 23272.1.1 ity of [place] 3.104.2.7 [place] .3.172054 Medica l .8 Branch 2020-11-07 2020-11-07 KIMBERLEY Montiel 6400 1.2.840.114 [id number] 00:00:00 00:00:00 Agustina ROMERO 350.1.13.58 9.2.7.2.686 [id number] 1 2020-10-29 2020-10-29 Refill Ronald, 1.2.840.7 [id number] Univers 00:00:00 00:00:00 Santiago 66993.1.1 ity of 3.104.2.7 [place] .3.743311 [facility] Results Test Description Test Time Test Comments Results Result [facility] e Comments LAB ONLY COVID 2020-12-21 [place] [address] InterpretationInte [facility] 23:21:19 rpretation/Recomme Branch ndations:Molecular NAAT Tests for [...] COVID-19 testing the patient has had at [facility], including molecular NAAT testing (more commonly known as PCR testing and Rapid ID Now testing) and antibody testing. It does not take into account any testing that a patient has had outside of the [facility] medical record. [facility] LABORATORY SERVICESCOVID [id number] NAAT (no units) ? ? Date ? Value ? 01/02/2021 ? Not Detected ? [facility] LABOR[facility]ORY SERVICES COVID-19 (MOLECULAR TESTING 2021-01-03 04:40:30 NUCLEIC ACID AMPLIFICATION) Test Item Value Reference Range Interpretation Comme nts SARS-CoV-2 NAAT (test code = Not Detected Not Detected 82299-7) KYLE (test code = KYLE) [employer] Fusion SARS-CoV-2 Assay is a real-time RT-PCR test intended for the qualitative detection of RNA from SARS-CoV-2 from nasopharyngeal (CHAIR MECHANIC) specimens. It is used under Emergency [...] indicated. Lab Interpretation (test code = Normal 45050-5) [facility] [id number] 17:59:25 Test Item Value Reference Range Interpretation Comments CD4 % (test code = 39 % 31-60 8123-2) CD4 Absolute (test code = See_Comment [ Automated message] 10800-6) The system SETVI generated this result transmitted ref erence range: 410-1,59 0 Cells/?L. The reference range was not used to int erpret this result as normal/abnormal . Lab Interpretation (test Normal code = 08972-4) [facility] IMMUNODEFICIENC[facility] VIRUS 1 (HIV-1) BY QUANTITATIVE [id number] 21:59:29 Test Item Value Reference Range Interpretation Comments HIV-1 Quantitative <30 Not Detected H NAAT - copies/mL (test Copies/mL code = 65211-1) HIV-1 Quantitative Detected, not Not Detected A Interpretation (test Quantifiable code = 1532886090) KYLE (test code = KYLE) The Aptima [...] indicated. Lab Interpretation Abnormal (test code = 49205-2) [facility] (A1C)2020-12-02 17:09:18 Test Item Value Reference Range Interpretation Comments HGB A1C (test code = 6.1 % 4.0-5.7 H 4548-4) KYLE (test code = KYLE) Reference RangesNormal: <5.7%Prediabetes: 5.7 - 6.4%Diabetes: > 6.5% Lab Interpretation (test Abnormal code = 01556-6) [facility] METABOLIC PANEL (NA, K, CL, CO2, GLUCOSE, BUN, CREATININE, CA)2020-12-02 16:42:23 Test Item Value Reference Range Interpretation Comments NA (test code = 140 mmol/L 135-145 6629983068) K (test code = 4.8 mmol/L 3.5-5.0 2373055428) CL (test code = 106 mmol/L 98-108 0355245672) CO2 TOTAL (test code = 28 mmol/L 23-31 3515959166) AGAP (test code = 2-16 6114878399) BUN (test code = 25 mg/dL 7-23 H 2809070533) GLUCOSE (test code = 101 mg/dL 70-110 0573415735) CREATININE (test code = 0.89 mg/dL 0.50-1.04 7461486936) CALCIUM (test code = 9.0 mg/dL 8.6-10.6 3644909365) eGFR (test code = mL/min/1.73m2 7303285932) KYLE (test code = KYLE) Association of [...] tests). Lab Interpretation Abnormal (test code = 04503-0) [facility] ONLY - VAGINAL PATHOGENS BY NUCLEIC ACID [id number] 01:35:21 Test Item Value Reference Range Interpretation Comments Trichomonas vaginalis Negative Negative (test code = 8688646869) Izabel species (test Negative Negative code = 4977010723) Izabel glabrata (test Negative Negative code = 31109-5) Bacterial Vaginosis Negative Negative (test code = 87903-5) KYLE (test code = KYLE) Reliable results [...] clinician. Lab Interpretation Normal (test code = 89283-8) [facility], GC, TV,PCR, IN [id number] 15:38:00 Test Item Value Reference Range Interpretation Comments FT (test code = CHTR) Not detected (qualifier Not Detected N value) FT (test code = Not detected (qualifier Not Detected N NGONO) value) FT (test code = TRVG) Not detected (qualifier Not Detected N value) URINALYSIS WITH [id number] 10:57:00 Test Item Value Reference Range Interpretation Comments Color (test code = UCOLR) Dk. Yellow Clarity (test code = UCLAR) Hazy Glucose (test code = UGLUC) NEGATIVE NEGATIVE N Bilirubin (test code = UBILI) NEGATIVE NEGATIVE N Ketones (test code = UKET) NEGATIVE NEGATIVE N Specific [place] (test code = 1.025 1.005-1.030 A USPGR) [...]
[2021-02-01 12:55] LABS: Absolute Lymphocytes (CBC) 1.4 K/uL (0.7-4.9); Basophils % 0.3 % (0-1.3); Hematocrit 31.7 % (36.0-45.0); MPV 7.2 fL (7.6-11.3); RBC Red Blood Cell Count 4.46 M/uL (3.86-4.86)
[2021-02-01] MEDS ORDERED: PROMETHAZINE INJ 25 MG/ML AMP ONE (12:56)
--- NOTE | 2021-02-01 12:56 | RAD REPORT ---
EXAM DESCRIPTION: RAD - Chest Single View - 02/01/2021 12:43 pm CLINICAL HISTORY: CHEST PAIN Chest pain. COMPARISON: Chest Single View dated 01/31/2021; Chest Single View dated 01/28/2021; Chest Single View d ated 12/16/2020; Chest Single View dated 09/29/2020 FINDINGS: Portable technique limits examination quality. The lungs are grossly clear. The heart is moderately enlarged. Bilateral shoulder arthroplasties.
[2021-02-01] MEDS ORDERED: FAMOTIDINE 20 MG/2 ML VIAL IV ONE (12:58)
[2021-02-01] MEDS ORDERED: MORPHINE 4 MG/ML SYR ONE (12:58)
[2021-02-01] MEDS ORDERED: ONDANSETRON 4 MG/2 ML VIAL ONE (13:02)
--- NOTE | 2021-02-01 13:15 | RAD REPORT ---
EXAM DESCRIPTION: CTAbdomen Pelvis W Contrast - 02/01/2021 1:02 pm CLINICAL HISTORY: Abdominal pain. ABD PAIN COMPARISON: Abdomen Pelvis W Contrast dated 07/25/2020; Abdomen Pelvis W Contrast dated 05/26/2020; Abdomen Pelvis W Contrast dated 04/19/2020; Abdomen Pelvis W Contrast dated 04/16/2020 TECHNIQUE: Biphasic CT imaging of the abdomen and pelvis was performed with 100 ml non-ionic IV cont rast. All CT scans are performed using dose optimization technique as appropriate and may include automated exposure control or mA/KV adjustment according to patient size. FINDINGS: Small opacity is present in the right lung base posteriorly measuring 13 mm abutting the p leural surface.Postsurgical changes are present hiatal hernia repair. The liver, spleen, pancreas, adrenal glands are within normal limits. Benign bilateral renal cysts. C holecystectomy. No bowel obstruction, free air, free fluid or abscess. Scattered diverticulosis coli is present throu ghout the colon without diverticulitis. The appendix is not identified as a discrete structure, howev er, no secondary findings of appendicitis are identified. No evidence of significant lymphadenopath y. Moderate lumbosacral degenerative changes are present. IMPRESSION: No acute intra-abdominal or pelvic finding. Small opacity posterior right lung base is present. Follow-up CT chest would be recommended in 6 paula hs.
[2021-02-01 13:23] LABS: ALT/SGPT 44 U/L (12-78); AST/SGOT 52 U/L (15-37); Albumin 3.2 g/dL (3.4-5.0); Alkaline Phosphatase 75 U/L (45-117); BUN Blood Urea Nitrogen 29 mg/dL (7-18); Bicarbonate 29 mmol/L (21-32); Bilirubin Direct 0.1 mg/dL (0-0.2); Bilirubin Total 0.3 mg/dL (0.2-1.0); Glucose Level 97 mg/dL (74-106); Lipase 118 U/L (73-393); Potassium 3.4 mmol/L (3.5-5.1); Protein, Total 7.1 g/dL (6.4-8.2); Sodium Level 142 mmol/L (136-145); Troponin (Emerg Dept Use Only) < 0.02 ng/mL (0.0-0.045)
[2021-02-01 13:46] LABS: Blood Morphology Comment NOTED (NOT SEEN); Hypochromasia 1+; Platelet Estimate ADEQ; White Blood Cell Scan OK (OK)
[2021-02-01] MEDS ORDERED: MAGNES/ALUMIN/SIMET 30ML UCUP ONE (14:11)
[2021-02-01] MEDS ORDERED: LIDOCAINE VISCOUS 2% SOLN 15 ML UDC ONE (14:11)
[2021-02-01] MEDS ORDERED: MEPERIDINE HCL 25 MG/ML SYR ONE (14:36)
[2021-02-01] MEDS ORDERED: LEVALBUTEROL 1.25 MG/3 ML NEB ONE (14:58)
--- NOTE | 2021-02-01 15:21 | ER ---
Nurse's Notes [facility] Name: Marjan Fleming Age: 66 yrs Sex: Female : 1955 Arrival Date: 02/01/2021 Time: 12:11 Bed 26 Private MD: Diagnosis: Abdominal pain, unspecified;Chest pain, unspecified Presentation: 02/01 12:19 Chief complaint: Patient states: "My chest hurts and when I eat or drink anything it hb regurgitates up into my nose." Pt reports pain in upper abdomen that radiates to chest 10 and nausea x 1 hour.. Coronavirus screen: At this time, the client does not indicate any symptoms associated with coronavirus-19. Ebola Screen: No symptoms or risks identified at this time. Initial Sepsis Screen: Does the patient meet any 2 criteria? No. Patient's initial sepsis screen is negative. Does the patient have a suspected source of infection? No. Patient's initial sepsis screen is negative. Risk Assessment: Do you want to hurt yourself or someone else? Patient reports no desire to harm self or others. Onset of symptoms was February 01, 2021. 12:19 Method Of Arrival: Ambulatory hb 12:19 Acuity: BLAYNE 3 hb Historical: - Allergies: 12:21 Bactrim DS; hb 12:21 butorphanol tartrate; hb 12:21 Fentanyl; hb 12:21 metoclopramide HCl; hb 12:21 Reglan; hb 12:21 Stadol; hb 12:21 sulfamethoxazole (bulk); hb 12:21 TRIMETHOPRIM; hb - PMHx: 12:21 esophageal varices; Hepatitis; COPD; Chronic pain; HIV; Bipolar disorder; Atrial Fib; hb Anxiety; Hypertension; Migraines; Panic Attacks; - PSHx: 12:21 hernia repair; hb - Immunization history:: Adult Immunizations up to date. - Social history:: Smoking status: Patient denies any tobacco usage or history of. Screenin:58 Abuse screen: Denies threats or abuse. Nutritional screening: No deficits noted. vg1 Tuberculosis screening: No symptoms or risk factors identified. Fall Risk No fall in past 12 months (0 pts). No secondary diagnosis (0 pts). IV access (20 points). Ambulatory Aid- None/Bed Rest/Nurse Assist (0 pts). Gait- Normal/Bed Rest/Wheelchair (0 pts) Mental Status- Oriented to own ability (0 pts). Total Hauser Fall Scale indicates No Risk (0-24 pts). Assessment: 12:20 General: Appears in no apparent distress. uncomfortable, Behavior is cooperative, vg1 anxious. Pain: Complains of pain in epigastric area and left upper quadrant and chest Pain does not radiate. Pain currently is 9 out of 10 on a pain scale. Pain began this morning. Neuro: Level of Consciousness is awake, alert, obeys commands, Oriented to person, place, time, situation. Cardiovascular: Patient's skin is warm and dry. Respiratory: Airway is patent Respiratory effort is even, unlabored. GI: Reports indigestion, nausea, vomiting. : No signs and/or symptoms were reported regarding the genitourinary system. EENT: No signs and/or symptoms were reported regarding the EENT system. Derm: Skin is intact, Skin is pink, warm \\T\\ dry. Musculoskeletal: Circulation, motion, and sensation intact. 13:20 Reassessment: Patient appears in no apparent distress at this time. No changes from vg1 previously documented assessment. Patient and/or family updated on plan of care and expected duration. Pain level reassessed. Patient is alert, oriented x 3, equal unlabored respirations, skin warm/dry/pink. 14:04 Reassessment: Pt states is unable to hold down GI cocktail. Provider notified. Received vg1 VO from Ry SHUT OFF WORKER to administer Demerol 25 mg IVP x1. 14:28 Reassessment: Pt O2 at 89% RA pt stated has COPD and is on 2 L NC at home. Pt placed on vg1 2L NC O2 at 96% Provider notified. 14:35 Reassessment: [facility] administer Xopenex 1.25 x1. vg1 15:39 Reassessment: Patient appears in no apparent distress at this time. Patient and/or vg1 family updated on plan of care and expected duration. Pain level reassessed. Patient is alert, oriented x 3, equal unlabored respirations, skin warm/dry/pink. Vital Signs: 12:19 BP 190 / 85; Pulse 67; Resp 15; Temp 97.1; Pulse Ox 96% on R/A; Pain 9/10; hb 12:25 BP 190 / 85; Pulse 60; Resp 18; Pulse Ox 100% ; vg1 14:29 BP 155 / 92; Pulse 64; Resp 16; Pulse Ox 96% on 2 lpm NC; vg1 15:00 BP 149 / 80; Pulse 65; Resp 16; Pulse Ox 100% on 2 lpm NC; vg1 ED Course: 12:11 Patient arrived in ED. rg4 12:16 Renae Camarillo RN is Primary Nurse. vg1 12:17 Austin Raza NP is PHCP. pm1 12:17 Ramon Baker MD is Attending Physician. pm1 12:21 Triage completed. hb 12:21 Arm band placed on. hb 12:25 EKG done. vg1 12:35 Inserted saline lock: 22 gauge in left wrist, using aseptic technique. ,using aseptic vg1 technique. completed by Alicia RAMIREZ Blood collected. 12:35 Initial lab(s) drawn, by ED staff, sent to lab. vg1 12:43 Chest Single View XRAY In Process Unspecified. EDMS 12:58 Patient has correct armband on for positive identification. Placed in gown. Bed in low vg1 position. Call light in reach. Side rails up X 1. pipe fittings molder on. Pulse ox on. NIBP on. 12:58 No provider procedures requiring assistance completed. Patient maintains SpO2 vg1 saturation greater than 95% on room air. 13:02 CT Abd/Pelvis - IV Contrast Only In Process Unspecified. EDMS 15:39 IV discontinued, intact, bleeding controlled, No redness/swelling at site. Pressure vg1 dressing applied. Administered Medications: 12:37 Not Given (Physician Discretion): Phenergan (promethazine) 12.5 mg IVP once pm1 12:40 Drug: Zofran (Ondansetron) 4 mg Route: IVP; Site: left wrist; vg1 13:52 Follow up: Response: No adverse reaction kg 12:42 Drug: Pepcid (famotidine) 20 mg Route: IVP; Site: left wrist; vg1 13:51 Follow up: Response: No adverse reaction kg 12:44 Drug: morphine 4 mg Route: IVP; Site: left wrist; vg1 13:51 Follow up: Response: No adverse reaction kg 13:51 Follow up: Response: No adverse reaction; Pain is decreased kg 13:52 Drug: GI Cocktail without - (Maalox Suspension 30 ml, Lidocaine Liquid 2 % 15 kg ml) Route: PO; 14:28 Follow up: Response: No adverse reaction; No change in condition vg1 14:39 Drug: Xopenex (levalbuterol) 1.25 mg Route: Inhalation; vg1 15:38 Follow up: Response: No adverse reaction; Marked relief of symptoms vg1 15:23 Drug: Demerol (meperidine) 25 mg Route: IVP; Site: left wrist; kg 15:38 Follow up: Response: No adverse reaction; Pain is decreased vg1 Outcome: 15:20 Discharge ordered by MD. pm1 15:39 Discharged to home via wheelchair. vg1 15:39 Condition: stable 15:39 Discharge instructions given to patient, Instructed on discharge instructions, follow up and referral plans. Demonstrated understanding of instructions, follow-up care. 15:39 Patient left the ED. vg1 Signatures: Dispatcher [employer] EDMS Austin Raza NP SHUT OFF WORKER pm1 Tata Rivera RN RN hb Garcia, Rubi 4 Renae Camarillo RN RN vg1 Alicia Estrada RN RN kg
--- NOTE | 2021-02-01 15:21 | EDPHYS ---
Physician Documentation [facility] Name: Marjan Fleming Age: 66 yrs Sex: Female : 1955 Arrival Date: 02/01/2021 Time: 12:11 Bed 26 Private MD: ED Physician Ramon Baker HPI: 02/01 12:38 This 66 yrs old Female presents to ER via Ambulatory with complaints of pm1 Abdominal Pain. 12:38 The patient presents with abdominal pain in the epigastric area. Onset: The pm1 symptoms/episode began/occurred today. The symptoms radiate to chest. Associated signs and symptoms: Pertinent positives: nausea, vomiting. Associated signs and symptoms: Pertinent negatives: fever, shortness of breath. The symptoms are described as burning. Modifying factors: The symptoms are alleviated by nothing, the symptoms are aggravated by food. Severity of pain: in the emergency department the pain is actually worse. The patient has not experienced similar symptoms in the past. The patient has not recently seen a physician. Historical: - Allergies: 12:21 Bactrim DS; hb 12:21 butorphanol tartrate; hb 12:21 Fentanyl; hb 12:21 metoclopramide HCl; hb 12:21 Reglan; hb 12:21 Stadol; hb 12:21 sulfamethoxazole (bulk); hb 12:21 TRIMETHOPRIM; hb - PMHx: 12:21 esophageal varices; Hepatitis; COPD; Chronic pain; HIV; Bipolar disorder; Atrial Fib; hb Anxiety; Hypertension; Migraines; Panic Attacks; - PSHx: 12:21 hernia repair; hb - Immunization history:: Adult Immunizations up to date. - Social history:: Smoking status: Patient denies any tobacco usage or history of. ROS: 12:39 Constitutional: Negative for fever, chills, and weight loss. pm1 12:39 Respiratory: Negative for shortness of breath, cough, wheezing, and pleuritic chest pain. 12:39 Back: Negative for injury and pain, MS/Extremity: Negative for injury and deformity, Skin: Negative for injury, rash, and discoloration, Neuro: Negative for headache, weakness, numbness, tingling, and seizure. 12:39 Cardiovascular: Positive for chest pain, of the xiphoid area, Negative for edema. 12:39 Abdomen/GI: Positive for abdominal pain, nausea and vomiting, of the right upper quadrant and left upper quadrant, Negative for diarrhea, constipation. 12:39 All other systems are negative. pm1 Exam: 12:39 Constitutional: This is a well developed, well nourished patient who is awake, alert, pm1 and in no acute distress. 12:39 Respiratory: Lungs have equal breath sounds bilaterally, clear to auscultation and percussion. No rales, rhonchi or wheezes noted. No increased work of breathing, no retractions or nasal flaring. 12:39 Back: No spinal tenderness. No costovertebral tenderness. Full range of motion. Skin: Warm, dry with normal turgor. Normal color with no rashes, no lesions, and no evidence of cellulitis. MS/ Extremity: Pulses equal, no cyanosis. Neurovascular intact. Full, normal range of motion. 12:39 Chest/axilla: Inspection: normal, Palpation: tenderness, of the xiphoid area. 12:39 Cardiovascular: Rate: normal, Rhythm: regular, Pulses: no pulse deficits are appreciated. 12:39 Abdomen/GI: Inspection: obese Palpation: soft, in all quadrants, mild abdominal tenderness, in the epigastric area. 12:39 Neuro: Exam negative for acute changes, Orientation: is normal, Mentation: is normal, Motor: is normal, moves all fours. Vital Signs: 12:19 BP 190 / 85; Pulse 67; Resp 15; Temp 97.1; Pulse Ox 96% on R/A; Pain 9/10; hb 12:25 BP 190 / 85; Pulse 60; Resp 18; Pulse Ox 100% ; vg1 14:29 BP 155 / 92; Pulse 64; Resp 16; Pulse Ox 96% on 2 lpm NC; vg1 15:00 BP 149 / 80; Pulse 65; Resp 16; Pulse Ox 100% on 2 lpm NC; vg1 MDM: 12:17 Patient medically screened. pm1 12:44 Data reviewed: vital signs. Data interpreted: Pulse oximetry: on room air is 100 %. pm1 Interpretation: normal. 15:19 Counseling: I had a detailed discussion with the patient and/or guardian regarding: the pm1 historical points, exam findings, and any diagnostic results supporting the discharge/admit diagnosis, lab results, radiology results, the need for outpatient follow up, to return to the emergency department if symptoms worsen or persist or if there are any questions or concerns that arise at home. 02/01 12:24 Order name: Basic Metabolic Panel; Complete Time: 13:40 pm1 02/01 12:24 Order name: CBC with Diff; Complete Time: 13:48 pm1 02/01 12:24 Order name: Hepatic Function; Complete Time: 13:40 pm1 02/01 12:24 Order name: Lipase; Complete Time: 13:40 pm1 02/01 12:24 Order name: Troponin (emerg Dept Use Only); Complete Time: 13:40 pm1 02/01 13:00 Order name: CBC Smear Scan; Complete Time: 13:48 EDMS 02/01 12:24 Order name: CT Abd/Pelvis - IV Contrast Only; Complete Time: 13:19 pm1 02/01 12:24 Order name: Chest Single View XRAY; Complete Time: 13:11 pm1 02/01 12:24 Order name: IV Saline Lock; Complete Time: 12:46 pm1 02/01 12:24 Order name: Labs collected and sent; Complete Time: 12:46 pm1 EC:39 Rate is 64 beats/min. Rhythm is regular, Normal Sinus Rhythm with No ectopy. No Q pm1 waves. T waves are Normal. No ST changes noted. Clinical impression: Normal ECG. Administered Medications: 12:37 Not Given (Physician Discretion): Phenergan (promethazine) 12.5 mg IVP once pm1 12:40 Drug: Zofran (Ondansetron) 4 mg Route: IVP; Site: left wrist; vg1 13:52 Follow up: Response: No adverse reaction kg 12:42 Drug: Pepcid (famotidine) 20 mg Route: IVP; Site: left wrist; vg1 13:51 Follow up: Response: No adverse reaction kg 12:44 Drug: morphine 4 mg Route: IVP; Site: left wrist; vg1 13:51 Follow up: Response: No adverse reaction kg 13:51 Follow up: Response: No adverse reaction; Pain is decreased kg 13:52 Drug: GI Cocktail without - (Maalox Suspension 30 ml, Lidocaine Liquid 2 % 15 kg ml) Route: PO; 14:28 Follow up: Response: No adverse reaction; No change in condition vg1 14:39 Drug: Xopenex (levalbuterol) 1.25 mg Route: Inhalation; vg1 15:38 Follow up: Response: No adverse reaction; Marked relief of symptoms vg1 15:23 Drug: Demerol (meperidine) 25 mg Route: IVP; Site: left wrist; kg 15:38 Follow up: Response: No adverse reaction; Pain is decreased vg1 Disposition: 16:15 Co-signature as Attending Physician, Ramon Baker MD I agree with the assessment and rn plan of care. Attestation: The patient's history, exam findings, diagnostics, and a summary of any interventions or procedures was reviewed in detail with Austin Raza NP. Disposition Summary: 02/01/21 15:20 Discharge Ordered Location: Home pm1 Problem: new pm1 Symptoms: have improved pm1 Condition: Stable pm1 Diagnosis - Abdominal pain, unspecified pm1 - Chest pain, unspecified pm1 Followup: pm1 - With: Emergency Department - When: As needed - Reason: Worsening of condition Followup: pm1 - With: Private Physician - When: 2 - 3 days - Reason: Recheck today's complaints, Continuance of care, Re-evaluation by your physician Discharge Instructions: - Discharge Summary Sheet pm1 - Abdominal Pain, Adult pm1 - Nonspecific Chest Pain, Adult pm1 Forms: - Medication Reconciliation Form pm1 - Thank You Letter pm1 - Antibiotic Education pm1 - Prescription Opioid Use pm1 Signatures: Dispatcher [employer] EDRamon Harrison MD MD rn Marinas, Patrick, NP WORKERS COMPENSATION CLAIMS ANALYST pm1 Tata Rivera RN RN Renae Camarillo RN RN vg1 Alicia Estrada RN RN kg
[2021-02-01 15:44] VITALS: TEMP 97.1
[2021-02-01 15:48] VITALS: BP 149/80; O2SAT 100
== END 2021-02-01 15:39 | disposition home or self-care (01) ==
LOC: ER 12:09
DX: R07.9 Chest pain, unspecified (principal); I10 Essential (primary) hypertension; Z21 Asymptomatic human immunodeficiency virus [HIV] infection status; Z88.1 Allergy status to other antibiotic agents; Z88.2 Allergy status to sulfonamides; Z88.8 Allergy status to other drugs, medicaments and biological substances
CPT/HCPCS: 85025; 80048; 36415; 80076; 84484; 83690; 74177; 71045; 96375; 96374; 99285; Q9967; J2550; J2175; J2405

== ENCOUNTER 2021-02-03 16:32 | Emergency (ER) | payer OTHER ==
--- OUTSIDE RECORDS SUMMARY | 2021-02-03 16:40 | XMS REPORT | Continuity of Care Document ---
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 LEVEL 2020-04-26 Carlos Holiness 09:05:00 [facility] CD 4 SUBSET 2020-04-26 Chihara, Ray Holiness 09:05:00 Hospital ESTIMATED GFR 2020-04-26 Eliseo Arce Holiness 09:05:00 Hospital MISCELLANEOUS REFERRAL TEST 2020-04-26 Eliseo Arce Meth odist 09:05:00 Hospital POTASSIUM LEVEL 2020-04-26 Eliseo Arce Holiness 03:04:00 Hospital HC COMPLETE BLD COUNT W/AUTO DIFF 2020-04-26 Carlos Holiness 00:51:00 [facility] BASIC METABOLIC PANEL 2020-04-26 Carlos, Holiness 00:51:00 [facility] MAGNESIUM LEVEL 2020-04-26 Amirisaiosravi, Holiness 00:51:00 [facility] PHOSPHORUS LEVEL 2020-04-26 Amirisaiosvi, Holiness 00:51:00 [facility] ESTIMATED GFR 2020-04-26 Eliseo Arce Holiness 00:51:00 Hospital FL ESOPHAGRAM DOUBLE CONTRAST 2020-04-25 Elieso Arce Me thodist 17:31:[address] CHEST WO CONTRAST ABDOMEN WO 2020-04-21, Yen-Te Holiness CONTRAST PELVIS WO CONTRAST 14:15:34 [facility] ital HC COMPLETE BLD COUNT W/AUTO DIFF 2020-04-21, Yen-Te Holiness 13:22:00 [facility] COMPREHENSIVE METABOLIC PANEL 2020-04-21, Yen-Te Me thodist 13:22:00 [facility] LIPASE LEVEL 2020-04-21, Yen-Te Holiness 13:22:00 [facility] LACTIC ACID LEVEL, SEPSIS - NOW 2020-04-21, Yen-Te Holiness AND REPEAT 2X EVERY 3 HOURS 13:22:00 [facility] ital ESTIMATED GFR 2020-04-21, Yen-Te Holiness 13:22:00 [facility] Plan of Care Planned Activity Planned Date Details Comments Source Future Scheduled Test DIABETES: RETINAL EYE [facility] EXAM [code = DIABETES: RETINAL EYE EXAM] Future Scheduled Test DIABETIC FOOT EXAM [facility] [code = DIABETIC FOOT EXAM] Future Scheduled Test Screening for malignant [facility] neoplasm of cervix (procedure) [code = 813373636] Future Scheduled Test BREAST CANCER SCREENING [facility] [code = BREAST CANCER SCREENING] Future Scheduled Test COLONOSCOPY SCREENING [facility] [code = COLONOSCOPY SCREENING] Future Scheduled Test SHINGLES VACCINES (#1) [facility] [code = SHINGLES VACCINES (#1)] Future Scheduled Test COVID-19 VACCINE (3 - [facility] Pfizer risk 3-dose series) [code = COVID-19 VACCINE (3 - Pfizer risk 3-dose series)] Future Scheduled Test INFLUENZA VACCINE [code [facility] = INFLUENZA VACCINE] Future Scheduled Test 65+ PNEUMOCOCCAL [facility] VACCINE (4 of 4) [code = 65+ PNEUMOCOCCAL VACCINE (4 of 4)] Future Scheduled Test DIABETES: RETINAL EYE [facility] EXAM [code = DIABETES: RETINAL EYE EXAM] Future Scheduled Test DIABETIC FOOT EXAM [facility] [code = DIABETIC FOOT EXAM] Future Scheduled Test Screening for malignant [facility] neoplasm of cervix (procedure) [code = 616324684] Future Scheduled Test BREAST CANCER SCREENING [facility] [code = BREAST CANCER SCREENING] Future Scheduled Test COLONOSCOPY SCREENING [facility] [code = COLONOSCOPY SCREENING] Future Scheduled Test SHINGLES VACCINES (#1) [facility] [code = SHINGLES VACCINES (#1)] Future Scheduled Test COVID-19 VACCINE (3 - [facility] Pfizer risk 3-dose series) [code = COVID-19 VACCINE (3 - Pfizer risk 3-dose series)] Future Scheduled Test INFLUENZA VACCINE [code [facility] = INFLUENZA VACCINE] Future Scheduled Test 65+ PNEUMOCOCCAL [facility] VACCINE (4 of 4) [code = 65+ PNEUMOCOCCAL VACCINE (4 of 4)] Encounters Start End Encounter Admission Attending Care Care Encounter Source Date/Time Date/Time Type Type Clinicians Facility Department ID 2020-12-12 Outpatient [facility] [id number] [place] 08:16:46 [facility] 2020-12-12 Outpatient [facility], [facility] [id number] [place] 07:42:11 [facility] 2020-10-31 Outpatient [facility], [facility] [id number] [place] 09:44:50 [facility] 2020-10-31 Outpatient [facility], [facility] [id number] [place] 07:54:08 [facility] 2020-09-30 Outpatient [facility], [facility] [id number] 60 [place] 13:16:03 [facility] 2021-01-28 2021-01-28 Travel 1.2.840.1 1.2.637.944 5940 9777 Univers 00:00:00 00:00:00 19627.1.1 350.1.13.10 ity of 3.[place].2.[place] 084.8 Medica l .8 Caspian 2021-01-19 2021-01-19 Telephone Pelletier, 1.2.840.1 [id number] 2099 [id number] Methodi 00:00:00 00:00:[address] 3.430.2.7 Hospit a .3.883467 l .8 2021-01-19 2021-01-19 Telephone Pelletier, 1.2.840.1 [id number] 2099 [id number] Methodi 00:00:00 00:00:[address] 3.430.2.7 Hospit a .3.496019 l .8 2021-01-04 2021-01-04 Dmitry Bass, 1.2.840.3 [id number] 33363 696 Univers 00:00:00 00:00:00 (Out) Dagoberto H 28573.1.1 ity of 3.104.2.7 [place] .3.475831 Medica l .8 [place] 2021-01-03 2021-01-03 Dmitry Bass, 1.2.840.1 [id number] 36853 790 Univers 00:00:00 00:00:00 (Out) Dagoberto H 06716.1.1 ity of 3.104.2.7 [place] .3.939313 Medica l .8 Caspian 2021-01-02 2021-01-02 Laboratory Cuba Franks 1.2.840.2 [id number] [id number] Univers 12:14:13 12:57:34 Only [facility] I 86422.1.1 ity of 3.104.2.7 [place] .3.748168 Medica l .8 [place]aspian 2021-01-02 2021-01-02 Travel 1.2.840.1 1.2.652.506 7464 2306 Univers 00:00:00 00:00:00 16551.1.1 350.1.13.10 ity of 3.104.2.[place].698 [place] .3.691144 084.8 Medica l .8 [place] 2021-01-02 2021-01-02 Letter Doctor 1.2.840.3 [id number] 948 Univers 00:00:00 00:00:00 (Out) Unassigned, 32772.1.1 ity of [place] 3.104.2.7 [place] .3.318574 Medica l .8 Caspian 2021-01-02 2021-01-02 Letter Doctor 1.2.840.3 [id number] 69108 946 Univers 00:00:00 00:00:00 (Out) Unassigned, 63394.1.1 ity of [place] 3.104.2.7 [place] .3.831917 Medica l .8 Caspian 2020-12-22 2020-12-22 Telephone Beltran, 1.2.840.4 [id number] 862 33050 Univers 00:00:00 00:00:00 Rossandynda R 08493.1.1 i ty of 3.104.2.7 [place] .3.551451 Medica l .8 [place] 2020-12-12 2020-12-12 Office Hematpour, UTP 6400 1.2.840.114 12 [id number] 07:42:02 08:18:50 Visit Chris RUIZ 350.1.13.58 9.2.7.2.686 [id number] 1 2020-12-09 2020-12-09 Telephone Meisenbach, 1.2.840.1 [id number] Methodi 00:00:00 00:00:00 Sarai Lieberman 44067.1.1 316 s t 3.430.2.7 Hospit a .3.209133 l .8 2020-12-09 2020-12-09 Telephone Meisenbach, 1.2.840.1 [id number] Methodi 00:00:00 00:00:00 Sarai M. 69282.1.1 316 s t 3.430.2.7 Hospit a .3.085271 l .8 2020-12-08 2020-12-08 [facility], 1.2.840.1 [id number] Methodi 12:35:54 23:59:00 Encounter Ray 97709.1.[address] 3.430.2.7 Hospit a .3.769321 l .8 2020-12-08 2020-12-08 [facility], 1.2.840.1 [id number] Methodi 12:35:54 23:59:00 Encounter Ray [address]384.1.[address] 3.430.2.7 Hospit a .3.595936 l .8 2020-12-08 2020-12-08 Lab [facility], 1.2.840.1 [id number] 06518 Methodi 17:20:50 17:25:[address] 3.430.2.7 Hospit a .3.207032 l .8 2020-12-08 2020-12-08 Lab [facility], 1.2.840.1 [id number] 65908 Methodi 17:20:50 17:25:[address] 3.430.2.7 Hospit a .3.886709 l .8 2020-12-08 2020-12-08 Office [facility], 1.2.840.1 [id number] 21001 05355 Methodi 09:55:34 11:39:56 Visit Ray 61801.1.[address] 3.430.2.7 Hospit a .3.492657 l .8 2020-12-08 2020-12-08 Office [facility], 1.2.840.1 [id number] 21001 18696 Methodi 09:55:34 11:39:56 Visit Ray 67049.1.[address] 3.430.2.7 Hospit a .3.936678 l .8 2020-12-08 2020-12-08 Travel 1.2.840.1 1.2.817.491 0885 789229 Methodi 00:00:00 00:00:[address] 3.430.2.7 0.2.7.3.698 Ho spita .3.153045 084.8 l .8 2020-12-08 2020-12-08 Travel 1.2.840.1 1.2.477.754 7290 322482 Methodi 00:00:00 00:00:[address] 3.430.2.7 0.2.7.3.698 Ho spita .3.435820 084.8 l .8 2020-12-02 2020-12-02 Irrigation District [facility] 1.2.840.114 8 [id number] 10:20:06 10:36:19 Visit [facility] 350.1.13.10 [facility] 4.2.7.2.686 [id number] 316 2020-12-02 2020-12-02 Irrigation District Manager Santiago Cardenas 1.2.840.1 [id number] [facility] 10:20:06 10:36:19 Visit c-Lab 77538.1.1 ity of 3.104.2.7 [place] .3.579038 Medica l .8 Caspian 2020-12-02 2020-12-02 Office Ronald 1.2.840.0 [id number] 528 Univers 08:31:37 09:01:37 Visit Santiago 52400.1.1 ity of 3.104.2.7 [place] .3.980054 Medica l .8 Casp[place] 2020-11-25 2020-11-25 Office [facility] 1.2.840.114 [id number] 11:06:30 11:58:14 Visit Robbi Hairston ELECTRIC SWITCH REPAIRER 350.1.13.10 [facility] 4.2.7.2.686 MATERNAL [id number] & CHILD [address] [place] [address] 2020-11-25 2020-11-25 Office Devin 1.2.840.1 [id number] 865 [facility] 11:06:30 11:58:14 Visit Robbi Hairston 32168.1.1 i ty of 3.104.2.7 [place] .3.882161 Medica l .8 Caspian 2020-11-25 2020-11-25 [facility] 1.2.672.399 9494 4592 00:00:00 00:00:00 [facility] 350.1.13.10 [facility] 4.2.7.2.686 [id number] 089 2020-11-25 2020-11-25 Telephone [facility] 1.2.410.982 6625 0821 00:00:00 00:00:00 Eligiomeredith Hairston ELECTRIC SWITCH REPAIRER 350.1.13.10 [facility] 4.2.7.2.686 MATERNAL [phone] & CHILD [address] [place] [address] 2020-11-25 2020-11-25 Telephone Devin, 1.2.840.3 [id number] 855 60204 Univers 00:00:00 00:00:00 Eligiomeredith Hairston 39811.1.1 i ty of 3.104.2.7 [place] .3.389134 Medica l .8 [place] 2020-11-25 2020-11-25 Refill [facility], 1.2.840.3 [id number] 31174 592 Univers 00:00:00 00:00:00 Santiago 29519.1.1 ity of 3.104.2.7 [place] .3.105160 Medica l .8 [place] 2020-11-25 2020-11-25 Travel 1.2.840.1 1.2.388.950 8963 0247 Univers 00:00:00 00:00:00 70228.1.1 350.1.13.10 ity of 3.104.2.7 4.[place]7.3.698 [place] .3.818215 084.8 Medica l .8 Branch 2020-11-25 2020-11-25 Orders Doctor 1.2.840.2 [id number] [id number] 064 Univers 00:00:00 00:00:00 Only Unassigned, 04513.1.1 ity of [place] 3.104.2.7 [place] .3.841324 Medica l .8 Branch 2020-11-14 2020-11-14 Abstract Clark, 1.2.840.1 [id number] Methodi 00:00:00 00:00:[address] 3.430.2.7 Hospit a .3.852959 l .8 2020-11-14 2020-11-14 Telephone Clark, 1.2.840.1 [id number] 2099 [id number] Methodi 00:00:00 00:00:[address] 3.430.2.7 Hospit a .3.703520 l .8 2020-11-14 2020-11-14 Abstract Clark, 1.2.840.1 [id number] 81190 Methodi 00:00:00 00:00:[address] 3.430.2.7 Hospit a .3.777078 l .8 2020-11-14 2020-11-14 Telephone Clark, 1.2.840.1 [id number] 2099 [id number] Methodi 00:00:00 00:00:[address] 3.430.2.7 Hospit a .3.029834 l .8 2020-11-07 2020-11-07 Telephone Diana, UTP 6400 1.2.840.114 124 [id number] 00:00:00 00:00:[address] 350.1.13.58 9.2.7.2.686 699.3696120 1 2020-10-29 2020-10-29 Refill [place], 1.2.840.7 [id number] 20798 400 Univers 00:00:00 00:00:00 Santiago 75777.1.1 ity of 3.104.2.7 [place] .3.428422 Medica l .8 Branch 2020-10-27 2020-10-27 Telephone Yazmin, 1.2.840.3 [id number] Methodi 00:00:00 00:00:[address] 3.430.2.7 Hospit a .3.568317 l .8 2020-10-27 2020-10-27 Telephone Cadea, 1.2.840.8 [id number] Methodi 00:00:00 00:00:[address] 3.430.2.7 Hospit a .3.626335 l .8 2020-10-24 2020-10-24 Telephone Clark, 1.2.840.1 [id number] 2099 790799 Methodi 00:00:00 00:00:[address] 3.430.2.7 Hospit a .3.107627 l .8 2020-10-24 2020-10-24 Telephone Rodas, 1.2.840.1 [id number] 2099 555958 Methodi 00:00:00 00:00:[address] 3.430.2.7 Hospit a .3.751876 l .8 2020-10-06 2020-10-12 [facility].840[facility]1 [id number] Methodi 15:26:54 00:08:46 ne Ray 68441.1.[address] 3.430.2.7 Hospit a .3.625444 l .8 2020-10-06 2020-10-12 [facility], 1.2.840.1 [id number] Methodi 15:26:54 00:08:46 ne Ray [address]7747.1.[address] 3.430.2.7 Hospit a .3.397751 l .8 2020-09-30 2020-09-30 Telephone Cadea, 1.2.840.8 [id number] Methodi 00:00:00 00:00:[address] 3.430.2.7 Hospit a .3.538767 l .8 2020-09-30 2020-09-30 Telephone Yazmin, 1.2.840.9 [id number] 21 [id number] Methodi 00:00:00 00:00:[address] 3.430.2.7 Hospit a .3.869185 l .8 2020-09-21 2020-09-21 Travel 1.2.840.1 1.2.288.866 1969 833673 Methodi 00:00:00 00:00:[address] 3.430.2.7 0.2.7.3.698 Ho spita .3.524424 084.8 l .8 2020-09-21 2020-09-21 Travel 1.2.840.1 1.2.823.420 1098 525336 Methodi 00:00:00 00:00:[address] 3.430.2.7 0.2.7.3.698 Ho spita .3.900928 084.8 l .8 2020-09-01 2020-09-09 Lab Paula, Min 1.2.840.1 [id number] 54806 Methodi 10:13:59 01:05:[address] 3.430.2.7 Hospit a .3.958852 l .8 2020-09-01 2020-09-09 Lab Paula, Min 1.2.840.1 [id number] 97683 Methodi 10:13:59 01:05:[address] 3.430.2.7 Hospit a .3.063754 l .8 2020-09-06 2020-09-06 Hospital 1.2.840.1 [id number] 53789 05231 Methodi 17:42:30 23:59:[address] 3.430.2.7 Hospit a .3.066114 l .8 2020-09-06 2020-09-06 Hospital 1.2.840.1 [id number] 22628 Methodi 17:42:30 23:59:[address] 3.430.2.7 Hospit a .3.493136 l .8 2020-09-06 2020-09-06 [facility], 1.2.840.1 [id number] 2099 [id number] Methodi 16:50:00 17:41:00 Encounter Ray 70399.1.[address] 3.430.2.7 Hospit a .3.352089 l .8 2020-09-06 2020-09-06 [facility], 1.2.840.1 [id number] 2100 [id number] Methodi 16:50:00 17:41:00 Encounter Ray [address]1942.1.[address] 3.430.2.7 Hospit a .3.798757 l .8 2020-09-05 2020-09-05 [facility], 1.2.840.1 [id number] 2099 [id number] Methodi 09:17:00 19:45:00 Encounter Ray [address]451.1.[address] 3.430.2.7 Hospit a .3.156702 l .8 2020-09-05 2020-09-05 [facility], 1.2.840.1 [id number] 2099 870255 Methodi 09:17:00 19:45:00 Encounter Ray [address]83.1.[address] 3.430.2.7 Hospit a .3.329012 l .8 2020-09-05 2020-09-05 [facility], 1.2.840.1 [id number] 74779 12904 Methodi 11:30:00 13:15:[address] 3.430.2.7 Hospit a .3.236618 l .8 2020-09-05 2020-09-05 [facility], 1.2.840.1 [id number] 90855 45436 Methodi 11:30:00 13:15:[address] 3.430.2.7 Hospit a .3.010154 l .8 2020-09-05 2020-09-05 Anesthesia [facility], 1.2.840.1 [id number] 494 [id number] Methodi 11:27:00 12:20:00 Event Sarvalentinawathi 73993.1.1 243 s t V. 3.430.2.7 Hospit a .3.253595 l .8 2020-09-05 2020-09-05 Anesthesia Remigio, 1.2.840.1 [id number] 505 [id number] Methodi 11:27:00 12:20:00 Event Sarvalentinawathi 73217.1.1 243 s t V. 3.430.2.7 Hospit a .3.470996 l .8 2020-09-05 2020-09-05 Travel 1.2.840.1 1.2.682.535 7970 830070 Methodi 00:00:00 00:00:[address] 3.430.2.7 0.2.7.3.698 Ho spita .3.259314 084.8 l .8 2020-09-05 2020-09-05 Travel 1.2.840.1 1.2.808.866 8141 104444 Methodi 00:00:00 00:00:[address] 3.430.2.7 0.2.7.3.698 Ho spita .3.345063 084.8 l .8 2020-09-04 2020-09-04 Telephone Meisenbach, 1.2.840.1 [id number] Methodi 00:00:00 00:00:00 Sarai Corbin. 40019.1.1 762 s t 3.430.2.7 Hospit a .3.103809 l .8 2020-09-04 2020-09-04 Telephone Meisenbach, 1.2.840.1 [id number] Methodi 00:00:00 00:00:00 Sarai M. 87459.1.1 762 s t 3.430.2.7 Hospit a .3.582358 l .8 2020-09-02 2020-09-02 Telephone Meisenbach, 1.2.840.6 [id number] Methodi 00:00:00 00:00:00 Sarai Lieberman 02505.1.1 344 s t 3.430.2.7 Hospit a .3.818425 l .8 2020-09-02 2020-09-02 Telephone [facility], 1.2.840.1 [id number] Methodi 00:00:00 00:00:00 Sarai Lieberman 73091.1.1 344 s t 3.430.2.7 Hospit a .3.255594 l .8 2020-09-01 2020-09-01 Office [facility], 1.2.840.1 [id number] 04981 78410 Methodi 08:42:53 09:50:51 Visit Ray 75309.1.[address] 3.430.2.7 Hospit a .3.320709 l .8 2020-09-01 2020-09-01 Office [facility], 1.2.840.1 [id number] 16388 78604 Methodi 08:42:53 09:50:51 Visit Ray [address]993.1.[address] 3.430.2.7 Hospit a .3.433807 l .8 2020-09-01 2020-09-01 Telephone [facility], 1.2.840.0 [id number] Methodi 00:00:00 00:00:[address] 3.430.2.7 Hospit a .3.049097 l .8 2020-09-01 2020-09-01 Travel 1.2.840.1 1.2.240.637 0358 802463 Methodi 00:00:00 00:00:[address] 3.430.2.7 0.2.7.3.698 Ho spita .3.421924 084.8 l .8 2020-09-01 2020-09-01 [facility] 1.2.840.5 [id number] Methodi 00:00:00 00:00:[address] 3.430.2.7 Hospit a .3.692491 l .8 2020-09-01 2020-09-01 Travel 1.2.840.1 1.2.226.296 3165 769764 Methodi 00:00:00 00:00:[address] 3.430.2.7 0.2.7.3.698 Ho spita .3.540596 084.8 l .8 2020-08-27 2020-08-27 [facility], 1.2.840.1 [id number] 2100 [id number] Methodi 09:55:15 23:59:00 Encounter Ray [address]28.1.[address] 3.430.2.7 Hospit a .3.978065 l .8 2020-08-27 2020-08-27 [facility], 1.2.840.1 [id number] 2100 814287 Methodi 09:55:15 23:59:00 Encounter Ray [address]646.1.[address] 3.430.2.7 Hospit a .3.762705 l .8 2020-08-27 2020-08-27 Travel 1.2.840.1 1.2.726.552 2941 044969 Methodi 00:00:00 00:00:[address] 3.430.2.7 0.2.7.3.698 Ho spita .3.646706 084.8 l .8 2020-08-27 2020-08-27 Travel 1.2.840.1 1.2.836.472 5569 589972 Methodi 00:00:00 00:00:[address] 3.430.2.7 0.2.7.3.698 Ho spita .3.709920 084.8 l .8 2020-08-21 2020-08-21 Travel 1.2.840.1 1.2.006.002 2108 693961 Methodi 00:00:00 00:00:[address] 3.430.2.7 0.2.7.3.698 Ho spita .3.353833 084.8 l .8 2020-08-21 2020-08-21 Travel 1.2.840.1 1.2.943.890 9652 242206 Methodi 00:00:00 00:00:[address] 3.430.2.7 0.2.7.3.698 Ho spita .3.619814 084.8 l .8 2020-08-19 2020-08-19 Telephone Meli, 1.2.840.1 [id number] 266 [id number] Methodi 00:00:00 00:00:[address] 3.430.2.7 Hospit a .3.906586 l .8 2020-08-19 2020-08-19 Travel 1.2.840.1 1.2.353.543 7124 594762 Methodi 00:00:00 00:00:[address] 3.430.2.7 0.2.7.3.698 Ho spita .3.189036 084.8 l .8 2020-08-19 2020-08-19 Telephone Meli, 1.2.840.1 [id number] 816 1694310 Methodi 00:00:00 00:00:[address] 3.430.2.7 Hospit a .3.534183 l .8 2020-08-19 2020-08-19 Travel 1.2.840.1 1.2.166.284 5768 427988 Methodi 00:00:00 00:00:[address] 3.430.2.7 0.2.7.3.698 Ho spita .3.031589 084.8 l .8 2020-08-18 2020-08-18 [facility] Carol Ann, 1.2.840.8 [id number] 2 [id number] Methodi 00:00:00 00:00:00 Only Sarai M. 58416.1.1 [address] t 3.430.2.7 Hospit a .3.952913 l .8 2020-08-18 2020-08-18 Travel 1.2.840.1 1.2.743.968 9213 881521 Methodi 00:00:00 00:00:[address] 3.430.2.7 0.2.7.3.698 Ho spita .3.772436 084.8 l .8 2020-08-18 2020-08-18 Orders Carol Ann, 1.2.840.4 [id number] 2 [id number] Methodi 00:00:00 00:00:00 Only Sarai M. 72138.1.1 410 [address] t 3.430.2.7 Hospit a .3.936996 l .8 2020-08-18 2020-08-18 Travel 1.2.840.1 1.2.828.233 0962 936198 Methodi 00:00:00 00:00:[address] 3.430.2.7 0.2.7.3.698 Ho spita .3.587742 084.8 l .8 2020-08-15 2020-08-15 Abstract Clark, 1.2.840.1 [id number] 75585 Methodi 00:00:00 00:00:[address] 3.430.2.7 Hospit a .3.268734 l .8 2020-08-15 2020-08-15 Abstract Clark, 1.2.840.1 [id number] 90149 Methodi 00:00:00 00:00:[address] 3.430.2.7 Hospit a .3.561604 l .8 2020-07-02 2020-08-06 Clinical 1.2.840.1 [id number] 17413 81458 Methodi 10:40:46 01:45:[address] 3.430.2.7 Hospit a .3.743741 l .8 2020-07-02 2020-08-06 Clinical 1.2.840.1 [id number] 44628 13768 Methodi 10:40:46 01:45:[address] 3.430.2.7 Hospit a .3.580939 l .8 2020-07-30 2020-07-30 Travel 1.2.840.1 1.2.249.265 1090 410633 Methodi 00:00:00 00:00:[address] 3.430.2.7 0.2.7.3.698 Ho spita .3.807208 084.8 l .8 2020-07-30 2020-07-30 Travel 1.2.840.1 1.2.893.682 5147 811468 Methodi 00:00:00 00:00:[address] 3.430.2.7 0.2.7.3.698 Ho spita .3.686812 084.8 l .8 2020-07-28 2020-07-28 Office [facility], 1.2.840.1 [id number] 48985 68541 Methodi 08:35:45 10:11:52 Visit Ray 78325.1.[address] 3.430.2.7 Hospit a .3.707978 l .8 2020-07-28 2020-07-28 Office [facility], 1.2.840.1 [id number] 27270 04088 Methodi 08:35:45 10:11:52 Visit Ray 80343.1.[address] 3.430.2.7 Hospit a .3.690047 l .8 2020-07-28 2020-07-28 Telephone Rodas, 1.2.840.1 [id number] 2100 557577 Methodi 00:00:00 00:00:[address] 3.430.2.7 Hospit a .3.405473 l .8 2020-07-28 2020-07-28 Travel 1.2.840.1 1.2.517.893 3755 446449 Methodi 00:00:00 00:00:[address] 3.430.2.7 0.2.7.3.698 Ho spita .3.372168 084.8 l .8 2020-07-28 2020-07-28 Telephone Rodas, 1.2.840.1 [id number] 2099 754332 Methodi 00:00:00 00:00:[address] 3.430.2.7 Hospit a .3.811493 l .8 2020-07-28 2020-07-28 Travel 1.2.840.1 1.2.755.300 9359 655941 Methodi 00:00:00 00:00:[address] 3.430.2.7 0.2.7.3.698 Ho spita .3.801466 084.8 l .8 2020-07-25 2020-07-25 Telephone Meisenbach, 1.2.840.3 [id number] Methodi 00:00:00 00:00:00 Sarai Lieberman 19036.1.1 [address] t 3.430.2.7 Hospit a .3.368824 l .8 2020-07-25 2020-07-25 Travel 1.2.840.1 1.2.532.780 6869 251219 Methodi 00:00:00 00:00:[address] 3.430.2.7 0.2.7.3.698 Ho spita .3.337319 084.8 l .8 2020-07-25 2020-07-25 Telephone [facility], 1.2.840.2 [id number] Methodi 00:00:00 00:00:00 Sarai Lieberman 34175.1.1 314 s t 3.430.2.7 Hospit a .3.773809 l .8 2020-07-25 2020-07-25 Travel 1.2.840.1 1.2.480.668 9092 339259 Methodi 00:00:00 00:00:[address] 3.430.2.7 0.2.7.3.698 Ho spita .3.605407 084.8 l .8 2020-07-23 2020-07-23 Clinical Robben, 1.2.840.1 [id number] 65883 Methodi 08:39:40 08:44:40 Support Hoang 23525.1.[address] P. 3.430.2.7 Hospit a .3.430985 l .8 2020-07-23 2020-07-23 Clinical Robnoellen, 1.2.840.1 [id number] 99212 Methodi 08:39:40 08:44:40 Support Hoang 16945.1.[address] P. 3.430.2.7 Hospit a .3.372340 l .8 2020-07-23 2020-07-23 Travel 1.2.840.1 1.2.033.654 0144 589370 Methodi 00:00:00 00:00:[address] 3.430.2.7 0.2.7.3.698 Ho spita .3.406296 084.8 l .8 2020-07-23 2020-07-23 Travel 1.2.840.1 1.2.991.496 1853 234020 Methodi 00:00:00 00:00:[address] 3.430.2.7 0.2.7.3.698 Ho spita .3.078462 084.8 l .8 2020-07-11 2020-07-11 Travel 1.2.840.1 1.2.889.059 6257 025998 Methodi 00:00:00 00:00:[address] 3.430.2.7 0.2.7.3.698 Ho spita .3.827339 084.8 l .8 2020-07-11 2020-07-11 Travel 1.2.840.1 1.2.742.542 9628 144081 Methodi 00:00:00 00:00:[address] 3.430.2.7 0.2.7.3.698 Ho spita .3.920733 084.8 l .8 2020-07-02 2020-07-02 [facility] [id number] Methodi 00:00:00 00:00:[address] 3.430.2.7 Hospit a .3.002414 l .8 2020-07-02 2020-07-02 Travel 1.2.840.1 1.2.241.193 2549 530764 Methodi 00:00:00 00:00:[address] 3.430.2.7 0.2.7.3.698 Ho spita .3.819973 084.8 l .8 2020-07-02 2020-07-02 [facility] 1.2.840.4 [id number] Methodi 00:00:00 00:00:[address] 3.430.2.7 Hospit a .3.051432 l .8 2020-07-02 2020-07-02 Travel 1.2.840.1 1.2.135.645 9324 149839 Methodi 00:00:00 00:00:[address] 3.430.2.7 0.2.7.3.698 Ho spita .3.903468 084.8 l .8 2020-06-23 2020-06-23 Office Yazmin, 1.2.840.1 [id number] 96933 35100 Methodi 09:36:17 11:00:44 Visit Ray 17178.1.[address] 3.430.2.7 Hospit a .3.114653 l .8 2020-06-23 2020-06-23 Office Yazmin, 1.2.840.1 [id number] 24414 Methodi 09:36:17 11:00:44 Visit Ray 60302.1.[address] 3.430.2.7 Hospit a .3.247719 l .8 2020-06-23 2020-06-23 Telephone Clark, 1.2.840.1 [id number] 2100 695075 Methodi 00:00:00 00:00:[address] 3.430.2.7 Hospit a .3.651520 l .8 2020-06-23 2020-06-23 Travel 1.2.840.1 1.2.598.294 9156 182683 Methodi 00:00:00 00:00:[address] 3.430.2.7 0.2.7.3.698 Ho spita .3.161597 084.8 l .8 2020-06-23 2020-06-23 Telephone Clark, 1.2.840.1 [id number] 2100 204673 Methodi 00:00:00 00:00:[address] 3.430.2.7 Hospit a .3.799133 l .8 2020-06-23 2020-06-23 Travel 1.2.840.1 1.2.964.566 1195 249122 Methodi 00:00:00 00:00:[address] 3.430.2.7 0.2.7.3.698 Ho spita .3.223506 084.8 l .8 2020-06-09 2020-06-09 Telephone Yazmin, 1.2.840.2 [id number] Methodi 00:00:00 00:00:[address] 3.430.2.7 Hospit a .3.913142 l .8 2020-06-09 2020-06-09 Telephone Yazmin, 1.2.840.3 [id number] Methodi 00:00:00 00:00:[address] 3.430.2.7 Hospit a .3.043860 l .8 2020-06-06 2020-06-06 Refill Ball, 1.2.840.1 [id number] 364849 3922 Methodi 00:00:00 00:00:00 Edward Y.H. 23754.1.[address] 3.430.2.7 Hospit a .3.505349 l .8 2020-06-06 2020-06-06 Reflamonte Ball, 1.2.840.1 [id number] 758945 5164 Methodi 00:00:00 00:00:00 Edward Y.H. 64585.1.[address] 3.430.2.7 Hospit a .3.070374 l .8 2020-06-03 2020-06-03 Telephone Yazmin, 1.2.840.4 [id number] [id number] Methodi 00:00:00 00:00:[address] 3.430.2.7 Hospit a .3.208335 l .8 2020-06-03 2020-06-03 Telephone Yazmin, 1.2.840.6 [id number] Methodi 00:00:00 00:00:[address] 3.430.2.7 Hospit a .3.033354 l .8 2020-06-02 2020-06-02 Telephone Yazmin, 1.2.840.1 [id number] Methodi 00:00:00 00:00:[address] 3.430.2.7 Hospit a .3.038195 l .8 2020-06-02 2020-06-02 Telephone [facility], 1.2.840.5 [id number] 21 [id number] Methodi 00:00:00 00:00:[address] 3.430.2.7 Hospit a .3.415749 l .8 2020-05-13 2020-05-13 Orders Provider, 1.2.840.1 [id number] 2099 759430 Methodi 00:00:00 00:00:00 Only Historical 52502.1.1 108 s t 3.430.2.7 Hospit a .3.330740 l .8 2020-05-13 2020-05-13 Orders Provider, 1.2.840.1 [id number] 2099 586772 Methodi 00:00:00 00:00:00 Only Historical 00200.1.1 108 s t 3.430.2.7 Hospit a .3.337192 l .8 2020-05-09 2020-05-09 Telephone [facility], 1.2.840.1 [id number] [id number] Methodi 00:00:00 00:00:00 Sarai M. 18953.1.1 660 s t 3.430.2.7 Hospit a .3.264412 l .8 2020-05-09 2020-05-09 Telephone [facility], 1.2.840.4 [id number] Methodi 00:00:00 00:00:[address] 3.430.2.7 Hospit a .3.528777 l .8 2020-05-09 2020-05-09 Telephone [facility], 1.2.840.1 [id number] Methodi 00:00:00 00:00:00 Sarai M. 83263.1.1 660 s t 3.430.2.7 Hospit a .3.182245 l .8 2020-05-09 2020-05-09 Telephone [facility], 1.2.840.9 [id number] Methodi 00:00:00 00:00:[address] 3.430.2.7 Hospit a .3.102204 l .8 2020-05-08 2020-05-08 Telephone [facility], 1.2.840.6 [id number] Methodi 00:00:00 00:00:[address] 3.430.2.7 Hospit a .3.864075 l .8 2020-05-08 2020-05-08 Telephone [facility], 1.2.840.4 [id number] Methodi 00:00:00 00:00:[address] 3.430.2.7 Hospit a .3.977540 l .8 2020-05-07 2020-05-07 Telephone [facility], 1.2.840.1 [id number] Methodi 00:00:00 00:00:[address] 3.430.2.7 Hospit a .3.103773 l .8 2020-05-07 2020-05-07 [facility], 1.2.840.1 [id number] Methodi 00:00:00 00:00:[address] 3.430.2.7 Hospit a .3.292063 l .8 2020-05-05 2020-05-05 Telephone [facility], 1.2.840.4 [id number] Methodi 00:00:00 00:00:[address] 3.430.2.7 Hospit a .3.163234 l .8 2020-05-05 2020-05-05 [facility], 1.2.840.2 [id number] Methodi 00:00:00 00:00:[address] 3.430.2.7 Hospit a .3.310212 l .8 2020-04-25 2020-05-03 [facility], 1.2.840.1 [id number] 2100 462634 Methodi 17:33:00 13:39:00 Encounter Ray [address]72.1.[address] 3.430.2.7 Hospit a .3.726630 l .8 2020-04-25 2020-05-03 [facility], 1.2.840.1 [id number] 2100 602522 Methodi 17:33:00 13:39:00 Encounter Ray 11831.1.[address] 3.430.2.7 Hospit a .3.304864 l .8 2020-04-28 2020-04-28 Anesthesia Tomas Pinon 1.2.840.1 [id number] Methodi 13:38:00 19:40:00 Event Justine Catalan 55576.1.[address] 3.430.2.7 Hospit a .3.672277 l .8 2020-04-28 2020-04-28 Anesthesia Tomas Pinon 1.2.840.1 [id number] Methodi 13:38:00 19:40:00 Event Justine Catalan 58082.1.[address] 3.430.2.7 Hospit a .3.079444 l .8 2020-04-28 2020-04-28 [facility], 1.2.840.1 [id number] 63849 02677 Methodi 13:00:00 17:10:[address] 3.430.2.7 Hospit a .3.035524 l .8 2020-04-28 2020-04-28 [facility], 1.2.840.1 [id number] 29492 54561 Methodi 13:00:00 17:10:[address] 3.430.2.7 Hospit a .3.268066 l .8 2020-04-25 2020-04-25 [facility], 1.2.840.1 [id number] 2100 874622 Methodi 10:00:00 17:32:00 Encounter Ray [address].1.[address] 3.430.2.7 Hospit a .3.656148 l .8 2020-04-25 2020-04-25 [facility], 1.2.840.1 [id number] 2100 592472 Methodi 10:00:00 17:32:00 Encounter Ray [address]38.1.[address] 3.430.2.7 Hospit a .3.515559 l .8 2020-04-25 2020-04-25 Office [facility], 1.2.840.1 [id number] 05373 Methodi 11:43:50 13:44:26 Visit Ray [address]3373.1.[address] 3.430.2.7 Hospit a .3.686452 l .8 2020-04-25 2020-04-25 Office [facility], 1.2.840.1 [id number] 72133 Methodi 11:43:50 13:44:26 Visit Ray 23618.1.[address] 3.430.2.7 Hospit a .3.397739 l .8 2020-04-25 2020-04-25 Travel 1.2.840.1 1.2.211.330 4185 141011 Methodi 00:00:00 00:00:[address] 3.430.2.7 0.2.7.3.698 Ho spita .3.321847 084.8 l .8 2020-04-25 2020-04-25 Travel 1.2.840.1 1.2.104.456 3478 420094 Methodi 00:00:00 00:00:[address] 3.430.2.7 0.2.7.3.698 Ho spita .3.338392 084.8 l .8 2020-04-24 2020-04-24 Prep for Meisenbach, 1.2.840.1 [id number] 2 [id number] Methodi 00:00:00 00:00:00 Surgery Sarai Corbin. 23263.1.1 524 s t 3.430.2.7 Hospit a .3.763200 l .8 2020-04-24 2020-04-24 Prep for Meisenbach, 1.2.840.1 [id number] 2 [id number] Methodi 00:00:00 00:00:00 Surgery Sarai Corbin. 36321.1.1 524 s t 3.430.2.7 Hospit a .3.385235 l .8 2020-04-22 2020-04-22 Telephone Meli, 1.2.840.1 [id number] 255 [id number] Methodi 00:00:00 00:00:[address] 3.430.2.7 Hospit a .3.419208 l .8 2020-04-22 2020-04-22 Travel 1.2.840.1 1.2.065.789 5669 171679 Methodi 00:00:00 00:00:[address] 3.430.2.7 0.2.7.3.698 Ho spita .3.620313 084.8 l .8 2020-04-22 2020-04-22 Telephone [facility], 1.2.840.1 [id number] 868 [id number] Methodi 00:00:00 00:00:[address] 3.430.2.7 Hospit a .3.598474 l .8 2020-04-22 2020-04-22 Travel 1.2.840.1 1.2.208.421 5529 552575 Methodi 00:00:00 00:00:[address] 3.430.2.7 0.2.7.3.698 Ho spita .3.636109 084.8 l .8 2020-04-21 2020-04-21 Emergency Tu, Yen-Te 1.2.840.1 [id number] 2 [id number] Methodi 06:51:00 10:43:[address] 3.430.2.7 Hospit a .3.332357 l .8 2020-04-21 2020-04-21 Emergency Tu, Yen-Te 1.2.840.1 [id number] 2 [id number] Methodi 06:51:00 10:43:[address] 3.430.2.7 Hospit a .3.552908 l .8 2020-04-21 2020-04-21 Orders Meisenbach, 1.2.840.1 [id number] [id number] Methodi 00:00:00 00:00:00 Only Sarai Lieberman 93392.1.1 550 s t 3.430.2.7 Hospit a .3.425359 l .8 2020-04-21 2020-04-21 Orders Meisenbach, 1.2.840.1 [id number] Methodi 00:00:00 00:00:00 Only Sarai Lieberman 29474.1.1 550 s t 3.430.2.7 Hospit a .3.480376 l .8 2020-04-16 2020-04-16 Telephone [facility], 1.2.840.1 [id number] Methodi 00:00:00 00:00:00 Sarai Lieberman 83070.1.1 673 s t 3.430.2.7 Hospit a .3.303112 l .8 2020-04-16 2020-04-16 Telephone [facility], 1.2.840.1 [id number] Methodi 00:00:00 00:00:00 Sarai Lieberman 29016.1.1 673 s t 3.430.2.7 Hospit a .3.712380 l .8 2020-04-10 2020-04-10 [facility].840[facility] [id number] Methodi 00:00:00 00:00:[address] 3.430.2.7 Hospit a .3.189388 l .8 2020-04-10 2020-04-10 Telephone Yazmin, 1.2.840.9 [id number] Methodi 00:00:00 00:00:[address] 3.430.2.7 Hospit a .3.301562 l .8 2020-04-07 2020-04-07 Telephone Nahum, 1.2.840.1 [id number] 2099 354154 Methodi 00:00:00 00:00:[address] 3.430.2.7 Hospit a .3.462743 l .8 2020-04-07 2020-04-07 Telephone Nahum, 1.2.840.1 [id number] 2099 128548 Methodi 00:00:00 00:00:[address] 3.430.2.7 Hospit a .3.177929 l .8 2020-04-01 2020-04-01 Orders Provider, 1.2.840.1 [id number] 2100 564709 Methodi 00:00:00 00:00:00 Only Historical 87846.1.1 049 s t 3.430.2.7 Hospit a .3.683089 l .8 2020-04-01 2020-04-01 Orders Provider, 1.2.840.1 [id number] 2100 913271 Methodi 00:00:00 00:00:00 Only Historical 15183.1.1 049 s t 3.430.2.7 Hospit a .3.314549 l .8 2020-03-31 2020-03-31 Travel 1.2.840.1 1.2.705.823 1924 025630 Methodi 00:00:00 00:00:[address] 3.430.2.7 0.2.7.3.698 Ho spita .3.721717 084.8 l .8 2020-03-31 2020-03-31 Travel 1.2.840.1 1.2.111.817 9411 471184 Methodi 00:00:00 00:00:[address] 3.430.2.7 0.2.7.3.698 Ho spita .3.055178 084.8 l .8 2020-03-27 2020-03-27 Telephone Paula, Min 1.2.840.6 [id number] Methodi 00:00:00 00:00:[address] 3.430.2.7 Hospit a .3.543363 l .8 2020-03-27 2020-03-27 Telephone Ramiro Mitchell 1.2.840.4 [id number] 21 [id number] Methodi 00:00:00 00:00:[address] 3.430.2.7 Hospit a .3.647002 l .8 Results Test Description Test Time Test Comments Results Result Sourc e Comments LAB ONLY COVID 2020-12-21 COVID DMT [facility] 4 [facility]ationInte [facility] 23:21:19 rpretation/Recomme [place] ndations:Molecular NAAT Tests for [...] COVID-19 testing the patient has had at [facility], including molecular NAAT testing (more commonly known as PCR testing and Rapid ID Now testing) and antibody testing. It does not take into account any testing that a patient has had outside of the [facility] medical record. [facility] LABORATORY SERVICESCOVID CldynwyIJAJ-GzO-5 NAAT (no units) ? ? Date ? Value ? 01/02/2021 ? Not Detected ? [facility] COVID-19 (MOLECULAR TESTING 2021-01-03 04:40:30 NUCLEIC ACID AMPLIFICATION) Test Item Value Reference Range Interpretation Comme nts SARS-CoV-2 NAAT (test code = Not Detected Not Detected 43482-3) KYLE (test code = KYLE) Bath Fusion SARS-CoV-2 Assay is a real-time RT-PCR test intended for the qualitative detection of RNA from SARS-CoV-2 from nasopharyngeal (IN HOME TUTOR) specimens. It is used under Emergency Use [...] indicated. Lab Interpretation (test code = Normal 44136-7) [facility] [id number] 04:35:05 Test Item Value Reference Interpretation Comments [...] Rotavirus PCR (test Not Detected code = 6671357) Salmonella PCR (test Not Detected code = [...] PCR Not Detected (test code = 7124) [facility] [id number] 04:35:05 Test Item Value Reference Interpretation Comments [...] Rotavirus PCR (test Not Detected code = 9426660) Salmonella PCR (test Not Detected code = [...] PCR Not Detected (test code = 7124) [facility] [id number] 19:17:40EXAMINATION: XR ABDOMEN 1 VW CLINICAL HISTORY: R19.7 Diarrhea unspecified, R14.0 Abdominal distension (gaseous), abdominal bloating COMPARISON: 04/30/2020 IMPRESSION:1.Moderate scattered stool within the colon. No bowel obstruction. Osseous structures are stable. Cholecystectomy clips are noted. [id number] Interface, Radiology Results Incoming 12/08/2020 2:20 PM CDT EXAMINATION: XR ABDOMEN 1 VWCLINICAL HISTORY: R19.7 Diarrhea unspecified, R14.0 Abdominal distension (gaseous), abdominal bloatingCOMPARISON: 04/30/2020IMPRESSION:1.Moderate scattered stool within the colon. No bowel obstruction. Osseous structures are stable. Cholecystectomy clips are noted.[id number] Abdomen 1 [id number] 19:17:40EXAMINATION: XR ABDOMEN 1 VW CLINICAL HISTORY: R19.7 Diarrhea unspecified, R14.0 Abdominal distension (gaseous), abdominal bloating COMPARISON: 04/30/2020 IMPRESSION:1.Moderate scattered stool within the colon. No bowel obstruction. Osseous structures are stable. Cholecystectomy clips are noted. [id number] Interface, Radiology Results 12/08/2020 2:20 PM CDT EXAMINATION: XR ABDOMEN 1 VWCLINICAL HISTORY: R19.7 Diarrhea unspecified, R14.0 Abdominal distension (gaseous), abdominal bloatingCOMPARISON: 04/30/2020IMPRESSION: 1.Moderate scattered stool within the colon. No bowel obstruction. Osseous structures are stable. Cholecystectomy clips are noted.[id number] [id number] 17:59:25 Test Item Value Reference Range Interpretation Comments CD4 % (test code = 39 % 31-60 8123-2) CD4 Absolute (test code = See_Comment [ Automated message] 84425-9) The system [employer] generated this result transmitted ref erence range: 410-1,59 0 Cells/?L. The reference range was not used to int erpret this result as normal/abnormal . Lab Interpretation (test Normal code = 88833-2) [facility] IMMUNODEFICIENCY VIRUS 1 (HIV-1) BY QUANTITATIVE [id number] 21:59:29 Test Item Value Reference Range Interpretation Comments HIV-1 Quantitative <30 Not Detected H NAAT - copies/mL (test Copies/mL code = 12113-9) HIV-1 Quantitative Detected, not Not Detected A Interpretation (test Quantifiable code = 2712897061) KYLE (test code = KYLE) The Aptima [...] indicated. Lab Interpretation Abnormal (test code = 04071-3) [facility]GLOB[facility] (A1C)2020-12-02 17:09:18 Test Item Value Reference Range Interpretation Comments HGB A1C (test code = 6.1 % 4.0-5.7 H 4548-4) KYLE (test code = KYLE) Reference RangesNormal: <5.7%Prediabetes: 5.7 - 6.4%Diabetes: > 6.5% Lab Interpretation (test Abnormal code = 31752-5) [facility] METABOLIC PANEL (NA, K, CL, CO2, GLUCOSE, BUN, CREATININE, CA)2020-12-02 16:42:23 Test Item Value Reference Range Interpretation Comments NA (test code = 140 mmol/L 135-145 5788074545) K (test code = 4.8 mmol/L 3.5-5.0 4337719870) CL (test code = 106 mmol/L 98-108 3727619142) CO2 TOTAL (test code = 28 mmol/L 23-31 3223868846) AGAP (test code = 2-16 9825970779) BUN (test code = 25 mg/dL 7-23 H 4372488270) GLUCOSE (test code = 101 mg/dL 70-110 3636908863) CREATININE (test code = 0.89 mg/dL 0.50-1.04 2911801991) CALCIUM (test code = 9.0 mg/dL 8.6-10.6 7905792564) eGFR (test code = mL/min/1.73m2 3694948656) KYLE (test code = KYLE) Association of [...] tests). Lab Interpretation Abnormal (test code = 33229-3) [facility] - VAGINAL PATHOGENS BY NUCLEIC ACID [id number] 01:35:21 Test Item Value Reference Range Interpretation Comments Trichomonas vaginalis Negative Negative (test code = 7841414684) Izabel species (test Negative Negative code = 1305280371) Izabel glabrata (test Negative Negative code = 95431-4) Bacterial Vaginosis Negative Negative (test code = 42126-2) KYLE (test code = KYLE) Reliable results [...] clinician. Lab Interpretation Normal (test code = 65486-4) [facility] [place] < 1 [id number] 19:41:02 EXAMINATION: OR FL < 1 HOUR C-arm fluoroscopy was requested in OR. Location: [facility] OR room 6 Procedure: EGD WITH BOTOX INJECTION INTO THE PYLORUS, ENDOFLIP, ON TABLE ESOPHAGRAM (N/A ) Start: 1140 End:1222 Fluoro Time: .19sec Dose: 7.8mGy Tech: A.B IMPRESSION: Intraoperative fluoroscopic images. Radiologist was not present during the examination.Separate operative report will be issued by the physician performing the procedure. [id number] Interface, Radiology Results Incoming 10/08/2020 2:44 PM CDT EXAMINATION: OR FL < 1 HOURC- arm fluoroscopy was requested in OR. Location: [place] [address] Procedure: EGD WITH BOTOX INJECTION INTO THE PYLORUS, ENDOFLIP, ON TABLE ESOPHAGRAM (N/A ) Start: 1140 End:1222 FluoroTime: .19sec Dose: 7.8mGy Tech: A.BIMPRESSION:Intraoperative fluoroscopic images. Radiologist was not present during the examination.Separate operative report will be issued by the physician performingthe procedure.[id number] [place] < 1 [id number] 19:41:02EXAMINATION: OR FL < 1 HOUR C-arm fluoroscopy was requested in OR. Location: [place] [address] Procedure: EGD WITH BOTOX INJECTION INTO THE PYLORUS, ENDOFLIP, ON TABLE ESOPHAGRAM (N/A ) Start: 1140 End:1222 Fluoro Time: .19sec Dose: 7.8mGy Tech: A.B IMPRESSION: Intraoperative fluoroscopic images. Radiologist was not present during the examination.Separate operative report will be issued by the physician performing the procedure. [id number] Interface, Radiology Results Incoming 10/08/2020 2:44 PM CDT EXAMINATION: OR FL < 1 HOURC- arm fluoroscopy was requested in OR. Location: [facility] OR [facility] 6 Procedure: EGD WITH BOTOX INJECTION INTO THE PYLORUS, ENDOFLIP, ON TABLE ESOPHAGRAM (N/A ) Start: 1140 End:1222 FluoroTime: .19sec Dose: 7.8mGy Tech: A.BIMPRESSION:Intraoperative fluoroscopic images. Radiologist was not present during the examination.Separate operative report will be issued by the physician performingthe procedure.[id number] 2020-09-08 19:30:47 Test Item Value Reference Range Interpretation Comments Case number (test [id number] code = 4962101) Surgical pathology See link below for PDF report (test code = Lab Report 2255) Result status (test This is Supplemental code = 6575551) [id number] [facility] [id number] 19:30:47 Test Item Value Reference Range Interpretation Comments Case number (test [id number] code = 6291049) Surgical pathology See link below for PDF report (test code = Lab Report 2255) Result status (test This is Supplemental code = 8786071) Report for [id number] [facility] Vw [id number] 23:06:58EXAMINATION: XR CHEST 1 VW PORTABLE HISTORY: [...] enlarged, similar to prior. Bilateral shoulder arthroplasties. [facility]-[id number] Interface, Radiology Results 09/06/2020 6:09PM CDT EXAMINATION: XR CHEST 1 [...] silhouette is enlarged, similar to prior.Bilateral shoulder arthroplasties.[facility]-[id number] HospitalXR Chest 1 Vw [id number] 23:06:58EXAMINATION: XR CHEST 1 VW PORTABLE HISTORY: 65 years old Female. Z98.890 Other specified postprocedural states. COMPARISON: Chest radiograph 04/30/2020, CT chest 08/21/2020 IMPRESSION: Minimal streaky interstitial opacities in the left greater than right lung, possibly trace pulmonary vascular congestion. Mild linear atelectasis in the left mid and left lower lung. No confluent consolidation. No pleural effusion. No pneumothorax. Cardiomediastinal silhouette is enlarged, similar to prior. Bilateral shoulder arthroplasties. [facility]-[id number] Interface, Radiology Results 09/06/2020 6:09PM CDT EXAMINATION: XR CHEST 1 PORTABLE HISTORY: 65 years old Female. Z98.890 Other specified postprocedural states.COMPARISON: Chest radiograph 04/30/2020, CT chest 08/21/2020IMPRESSION:Minimal streaky interstitial opacities in the left greater than right lung, possibly trace pulmonary vascular congestion. Mild linear atelectasis in the left mid and left lower lung. No confluent consolidation. No pleural effusion. No pneumothorax.Cardiomediastinal silhouette is enlarged, similar to prior.Bilateral shoulder arthroplasties.[facility]-[id number] HospitalAirway 2020-09-05 16:47:23Kirit Flood MD 09/05/2020 11:48 AMAirway Location: [...] RSI: Yes Number of Attempts at Approach: [address] [place], [place] [address]2021-04-16 16:47:23Kirit Flood MD 09/05/2020 11:48 AMAirway Location: OR Performed by: anesthesia residentAnesthesiologist: Kirit Flood MDAuthorized by: Kiirt Flood MD Urgency: ElectiveDifficult Airway: No Preoxygenated [...] RSI: Yes Number of Attempts at Approach: [address] [place] [address] [id number] 23:21:56 Test Item Value Reference Range Interpretation [...] T wave abnormality, consider anterior ischemia-Abnormal [facility]- [facility] [id number] 23:21:56 Test Item Value Reference Range Interpretation [...] T wave abnormality, consider anterior ischemia-Abnormal ECG- [facility] qualitative [id number] 22:48:41 Test Item Value Reference Range Interpretation Comments Interpretation (test Negative results do code = 2403024) not preclude 2019-nCoV infection and should not be used as the sole basis for treatment or other patient management decisions. Negative results must be combined with clinical observations, patient history, and epidemiological information. COVID-19 qualitative Not-Detected Not-Detected RT-PCR result (test code = 93683-6) COVID-19 qualitative See link below for C ase Number: RT-PCR (test code = PDF Lab Report [id number]) [place] [address] qualitative [id number] 22:48:41 Test Item Value Reference Range Interpretation Comments Interpretation (test Negative results do code = 9720342) not preclude 2019-nCoV infection and should not be used as the sole basis for treatment or other patient management decisions. Negative results must be combined with clinical observations, patient history, and epidemiological information. COVID-19 qualitative Not-Detected Not-Detected RT-PCR result (test code = 74468-2) COVID-19 qualitative See link below for C ase Number: RT-PCR (test code = PDF Lab Report [id number]) [facility] Gastric [id number] 23:14:39PROCEDURE: RI GASTRIC EMPTYING INDICATION: Abdominal bloating. TECHNIQUE: 0.5 [...] rate, with complete emptying by 4 hours. [facility]-[id number] Interface, Radiology Results 08/27/2020 6:17 PM CDT PROCEDURE: NM GASTRIC EMPTYINGINDICATION: Abdominal bloating. TE CHNIQUE: 0.5 mCi of Tc-99m sulfur colloid was [...] rate, with complete emptying by 4 hours. [facility]-[id number] [facility] Gastric [id number] 23:14:39PROCEDURE: RI GASTRIC EMPTYING INDICATION: Abdominal bloating. TECHNIQUE: 0.5 [...] rate, with complete emptying by 4 hours. [facility]-[id number] Interface, Radiology Results 08/27/2020 6:17 PM CDT PROCEDURE: NM GASTRIC EMPTYINGINDICATION: Abdominal bloating. TE CHNIQUE: 0.5 mCi of Tc-99m sulfur colloid was [...] rate, with complete emptying by 4 hours. [id number] [facility] referral [id number] 21:24:58 Test Item Value Reference Range Interpretation Comments Misc test HIV-1 RNA QUAL PCR name (test code = 2566) Misc test see note Human Immunodef iciency result (test Virus 1 (HIV-1) by code = 1730) Qualitative Weigher Production-M ediated Amplification ( TMA) ARUP test code HIV-1 by Qualit ative TMA See Note SOURCE/SPECIMEN PLASMA HIV-1 RNA, QUAL ITATIVE TMA HIV-1 RNA, QL TMA T IN HOME TUTOR Test Not Performed. Initial testing necessi tated a repeat, but the re was insufficient sa mple to perform repeat. SAMPLE LEFT FOR REPEAT IS 50 uL. NEED 1000 u L TO RUN REPEAT. This te st was performed using the APTIMA(R) HIV-R NA Qualitative Ass ay (Gen-Probe). ======== ======== Te st performed by:[employer] [place] [id number] KYLE (test HIVQL - HIV-1 RNA, code = KYLE) Qualitative TMA (FROZEN)ARUP Test Code: 7311617Ukcaoa: plasma [facility] [id number] 21:24:58 Test Item Value Reference Range Interpretation Comments Misc test HIV-1 RNA QUAL PCR name (test code = 2566) Misc test see note Human Immunodef iciency result (test Virus 1 (HIV-1) by code = 1730) Qualitative Weigher Production-M ediated Amplification ( TMA) ARUP test code HIV-1 by Qualit ative TMA See Note SOURCE/SPECIMEN PLASMA HIV-1 RNA, QUAL ITATIVE TMA HIV-1 RNA, QL TMA T IN HOME TUTOR Test Not Performed. Initial testing necessi tated a repeat, but the re was insufficient sa mple to perform repeat. SAMPLE LEFT FOR REPEAT IS 50 uL. NEED 1000 u L TO RUN REPEAT. This te st was performed using the APTIMA(R) HIV-R NA Qualitative Ass ay (Gen-Probe). ======== ======== Te st performed by:[employer] [place] [address] KYLE (test HIVQL - HIV-1 RNA, code = KYLE) Qualitative TMA (FROZEN)IDQuirky Test Code: 6007911Irvclo: plasma Ted Castañeda duplex venous upper rptawrkic8262-13-13 04:57:00 Vascular Ultrasound Laboratory Upper Extremity Venous Report [address] [place] [address] Pat.Name: LIO WATTS Pat.ID: [id number] St.Date: 04/30/2020 Refer.MD: ELISEO ARCE MD Exam Time: 5:04:00 PM Study Type:UE Venous Age: 9 1955,65Y Sex: FEMALE Sonogrphr: IBIS Espinosa RCS Pat. Stat.:Inpatient Room: [place] [address] 2020 Tape Vol: EDGAR, CPT - 4: 59463 Echo Event ID:[id number] Order ID: [id number] Reason for Study:Arm swelling or pain, DVT [...] veins.*Preliminary result reported to ASHLEY Santos @ 9213 on 04/30/20.PHYSICIAN INTERPRETATION Venous examination of the both upper extremities and neck demonstratedno evidence of deep venous thrombosis. Total superficial vein thrombosis of the right basilic vein. FINDINGS: Signed 04/30/2020 10:57 PMHuntersolt Marianna MD, RPVIInterface, Radiology Results In - 04/30/2020 10:58 PM CST Vascular Ultrasound Laboratory Upper Extremity Venous Report [address] [place] [address] Pat.Name: LIO WATTS Pat.ID: [id number] .Date: 04/30/2020 Refer.MD: ELISEO ARCE MD Exam Time: 5:04:00 PM Study Type:UE Venous Age: 9 1955,65Y Sex: FEMALE Sonogrphr: IBIS Espinosa, SANKET Pat. Stat.:Inpatient Room: [place] [address] 2020 Tape Vol: JM, CPT - 4: 80291 Echo Event ID:[id number] Order ID: [id number] Reason for Study:Arm swelling or pain, DVT [...] veins.*Preliminary result reported to ASHLEY Santos @ 9200 on 04/30/20.PHYSICIAN INTERPRETATION Venous examination of the both upper extremities and neck demonstratedno evidence of deep venous thrombosis. Total superficial vein thrombosis of the right basilic vein. FINDINGS: ------Signed 04/30/2020 10:57 PMHuntersolt Marianna MD, [facility] duplex venous upper afgvhhwkf8081-45-26 04:57:00 Vascular Ultrasound Laboratory Upper Extremity Venous Report [address] [place] [address] Pat.Name: LIO WATTS Pat.ID: [id number] .Date: 04/30/2020 Refer.MD: ELISEO ARCE MD Exam Time: 5:04:00 PM Study Type:UE Venous Age: 10 1955,65Y Sex: FEMALE Sonogrphr: IBIS Espinosa, SANKET Pat. Stat.:Inpatient Room: [place] [address] 2020 Tape Vol: EDGAR, CPT - 4: 89551 Echo Event ID:[id number] Order ID: [id number] Reason for Study:Arm swelling or pain, DVT [...] veins.*Preliminary result reported to ASHLEY Santos @ 3724 on 04/30/20.PHYSICIAN INTERPRETATION Venous examination of the both upper extremities and neck demonstratedno evidence of deep venous thrombosis. Total superficial vein thrombosis of the right basilic vein. FINDINGS: Signed 04/30/2020 10:57 PMFrancis Cabral MD, RPVIInterce, Radiology Results In - 04/30/2020 10:58 PM CST Vascular Ultrasound Laboratory Upper Extremity Venous Report [address] [address] Pat.Name: MAC LIO Marta.ID: [id number] .Date: 04/30/2020 Refer.MD: ELISEO ARCE MD Exam Time: 5:04:00 PM Study Type:UE Venous Age: 9 1955,65Y Sex: FEMALE Sonogrphr: Dwayne Macias, IBIS, SANKET Pat. Stat.:Inpatient Room: [place] [address] 2020 Tape Vol: JM, CPT - 4: 79677 Echo Event ID:[id number] Order ID: [id number] Reason for Study:Arm swelling or pain, DVT [...] veins.*Preliminary result reported to ASHLEY Santos @ 8138 on 04/30/20.PHYSICIAN INTERPRETATION Venous examination of the both upper extremities and neck demonstratedno evidence of deep venous thrombosis. Total superficial vein thrombosis of the right basilic vein. FINDINGS: ------Signed 04/30/2020 10:57 Rajni Cabral MD, [facility] Chest 2 [id number] 22:21:01EXAMINATION: XR CHEST 2 VW CLINICAL HISTORY: [...] of the chest. 1D2RAD_PS01Hm Interface, Radiology Results 04/30/2020 4:24 PM CST EXAMINATION: XR CHEST 2 VWCLINICAL HISTORY: amio gttCOMPARISON: None.FINDINGS:Two views of the chest demonstrate mild cardiomegaly. Pulmonary vasculature is within normal limits.No consolidation or pleural effusion isseen. There is no evidence of pneumothorax. Low lung volume is noted.Bilateral shoulders arthroplasty changes are noted.IMPRESSION:No radiographic evidence of acute cardiopulmonary process or active disease of the chest.1D2RAD_PS01[facility] 2 Vw 2020-04-30 22:21:01EXAMINATION: XR CHEST 2 VW CLINICAL HISTORY: [...] of the chest. 1D2RAD_PS01Hm Interface, Radiology Results 04/30/2020 4:24 PM CST EXAMINATION: XR CHEST 2 VWCLINICAL HISTORY: amio gttCOMPARISON: None.FINDINGS:Two views of the chest demonstrate mild cardiomegaly. Pulmonary vasculature is within normal limits.No consolidation or pleural effusion isseen. There is no evidence of pneumothorax. Low lung volume is noted.Bilateral shoulders arthroplasty changes are noted.IMPRESSION:No radiographic evidence of acute cardiopulmonary process or active disease of the chest.1D2RAD_PS01[facility] HospitalMidline Unsuccessful [id number] 17:14:34ANicole zhang RN 04/30/2020 11:25 AMMidline Unsuccessful [...] place a PIV g.20 in lower arm .[facility] Unsuccessful Drxrztm1021-34-42 17:14:34ANicole zhang RN 04/30/2020 11:25 AMMidame Unsuccessful Attempt [...] place a PIV g.20 in lower arm .[facility] Abdomen 1 [id number] 16:20:14EXAMINATION: XR ABDOMEN 1 VW PORTABLE CLINICAL HISTORY: Abdominal pain post op COMPARISON: No prior IMPRESSION:1.Residual barium within the colon throughout. No small bowel obstruction noted. [facility]-2U [id number] Interface, Radiology Results - 04/30/2020 10:23 AM CST EXAMINATION: XR ABDOMEN 1 VW PORTABLECLINICAL HISTORY: Abdominalpain post opCOMPARISON: No priorIMPRESSION:1.Residual barium within the colon throughout. No smallbowel obstruction noted.[facility]-[id number] HospitalXR Abdomen 1 Vw Portable 2020-04-30 16:20:14EXAMINATION: XR ABDOMEN 1 VW PORTABLE CLINICAL HISTORY: Abdominal pain post op COMPARISON: No prior IMPRESSION:1.Residual barium within the colon throughout. No small bowel obstruction noted. [facility]-[id number] Interface, Radiology Results Incoming - 04/30/2020 10:23 AM CST EXAMINATION: XR ABDOMEN 1 VW PORTABLECLINICAL HISTORY: Abdominalpain post opCOMPARISON: No priorIMPRESSION:1.Residual barium within the colon throughout. No smallbowel obstruction noted.[id number] SwfipyygOnfqgo0907-79-12 20:57:57Carlee Malloy MD 04/28/2020 2:59 PMAirwayPerformed by: Carlee Malloy MDAuthorized by: Carlee Malloy MD Location: ORUrgency: ElectiveDifficult Airway: No Anesthesiologist: Kvng Malloy MDResident/RN RADIATION ONCOLOGY/AA: Allan Morocho DOPerformed by: resident/RN RADIATION ONCOLOGY/AAPreoxygenated ugju236% O2: Yes C- spine Precautions Maintained Throughout: [...] No Number of Attempts at Approach: 1 [facility] GkoazbizSkdxyf3338-26-27 20:57:57Carlee Malloy MD 04/28/2020 2:59 PMAirwayPerformed by: Carlee Malloy MDAuthorized by: Carlee Malloy MD Location: ORUrgency: ElectiveDifficult Airway: No Anesthesiologist: Kvng Malloy MDResident/RN RADIATION ONCOLOGY/AA: Allan Morocho DOPerformed by: resident/RN RADIATION ONCOLOGY/AAPreoxygenated butj284% O2: Yes C-spine Precautions Maintained Throughout: Yes [...] RSI: No Number of Attempts at Approach: 1MTexas [facility] for ChildrenTransthoracic Echocardiogram Complete, (w Contrast, Strain and 3D if needed)2020-04-28 00:20:00 Echocardiography Report [address] [place] [address] Pat.Name: LIO WATTS Marta.ID: [id number] .Date: 04/27/2020 Refer.MD: ELISEO ARCE MD Exam Time: 2:21:00 PM Study Type:Routine Echo Height: 64in Weight: 213lb BSA: 2.01 m2 Age: 9 1955,65Y Sex: FEMALE BP: 128/89 HR: 102 bpm Sonogrphr: SANKET Perkins Pat. Stat.:Inpatient Room: [facility] Study Status:Final Echo Event ID:[id number] Order ID: [id number] Reason for Study:Atrial FibrillationHistory / Clinical:Hypertension Procedures: [...] estimate PA systolic pressure. MEASUREMENTS: 2DParasternal Long Donalds Ao An 2.2 cm LVPWd 1 cm [...] LVOT CI 3.1 l/m/m2 Signed 04/27/2020 06:20 PMSandra Martin MDInterface, Radiology Results In - 04/27/2020 6:21 PM CST Echocardiography Report [address] [address] Pat.Name: LIO WATTS Marta.ID: [id number] .Date: 04/27/2020 Refer.MD: ELISEO ARCE MD Exam Time: 2:21:00 PM Study Type:Routine Echo Height: 64in Weight: 213lb BSA: 2.01 m2 Age: 9 1955,65Y Sex: FEMALE BP: 128/89 HR: 102 bpm Sonogrphr: SANKET Perkins Pat. Stat.:Inpatient Room: [facility] Study Status:Final Echo Event ID:[id number] Order ID: [id number] Reason for Study:Atrial FibrillationHistory / Clinical:Hypertension Procedures: [...] PA systolic pressure.- MEASUREMENTS: ---- 2DParasternal Long Donalds Ao An 2.2 cm LVPWd 1 cm [...] LVOT CI 3.1 l/m/m2 Signed 04/27/2020 06:20 [facility]MEly[facility] Transthoracic Echocardiogram Complete, (w Contrast, Strain and 3D if needed) 2020-04-28 00:20:00 Echocardiography Report [address] [place] [address] Pat.Name: LIO WATTS Marta.ID: [id number] .Date: 04/27/2020 Refer.MD: ELISEO ARCE MD Exam Time: 2:21:00 PM Study Type:Routine Echo Height: 64in Weight: 213lb BSA: 2.01 m2 Age: 9 1955,65Y Sex: FEMALE BP: 128/89 HR: 102 bpm Sonogrphr: SANKET Perkins Pat. Stat.:Inpatient Room: [facility] Study Status:Final Echo Event ID:[id number] Order ID: [id number] Reason for Study:Atrial FibrillationHistory / Clinical:Hypertension Procedures: [...] estimate PA systolic pressure. MEASUREMENTS: 2DParasternal Long Donalds Ao An 2.2 cm LVPWd 1 cm [...] LVOT CI 3.1 l/m/m2 Signed 04/27/2020 06:20 PMSandra Martin MDInterface, Radiology Results In - 04/27/2020 6:21 PM CST Echocardiography Report [address] [place] [address] Pat.Name: LIO WATTS.ID: [id number] .Date: 04/27/2020 Refer.MD: ELISEO ARCE MD Exam Time: 2:21:00 PM Study Type:Routine Echo Height: 64in Weight: 213lb BSA: 2.01 m2 Age: 9 1955,65Y Sex: FEMALE BP: 128/89 HR: 102 bpm Sonogrphr: SANKET Perkins Pat. Stat.:Inpatient Room: [facility] Study Status:Final Echo Event ID:[id number] Order ID: [id number] Reason for Study:Atrial FibrillationHistory / Clinical:Hypertension Procedures: [...] PA systolic pressure.- MEASUREMENTS: ---- 2DParasternal Long Donalds Ao An 2.2 cm LVPWd 1 cm [...] LVOT CI 3.1 l/m/m2 Signed 04/27/2020 06:20 PMMoformerly [facility] Esophagram Double Kkfgqcne6702-51-71 18:07:12EXAMINATION: FL ESOPHAGRAM DOUBLE CONTRAST CLINICAL HISTORY: R13.10 Dysphagia unspecified, K44.9 Diaphragmatic hernia [...] spontaneous gastroesophageal reflux. 1OP17RAD_PS01 Interface, Radiology Results 04/25/2020 12:10 PM CST EXAMINATION: FL ESOPHAGRAM DOUBLE CONTRASTCLINICALHISTORY: R13.10 Dysphagia unspecified, K44.9 Diaphragmatic hernia without obstruction or gangrene,Dysphagia unexplained, dysphagia hiatal herniaCOMPARISON: Limited comparison with chest CT from [facility]2019TECHNIQUE: Esophagram was performed with effervescent granules and barium.FLUOROSCOPIC TIME: 1.5 minutes.NUMBER OF IMAGES: 9 fluoroscopic images.IMPRESSION:No strictures. Normal esophageal mucosa.Nonspecific esophageal dysmotility, with mildly delayed esophageal emptying and scatterednonpropulsive tertiary contraction waves.There is a moderately sized type III hiatal hernia. There was mild spontaneous gastroesophageal reflux.1OP17RAD_PS01[facility] Esophagram Double Edxqqoxe5765-27-91 18:07:12EXAMINATION: FL ESOPHAGRAM DOUBLE CONTRAST CLINICAL HISTORY: R13.10 Dysphagia unspecified, K44.9 Diaphragmatic hernia [...] spontaneous gastroesophageal reflux. 1OP17RAD_PS01 Interface, Radiology Results Incoming - 04/25/2020 12:10 PM CST EXAMINATION: FL ESOPHAGRAM DOUBLE CONTRASTCLINICALHISTORY: R13.10 Dysphagia unspecified, K44.9 Diaphragmatic hernia without obstruction or gangrene,Dysphagia unexplained, dysphagia hiatal herniaCOMPARISON: Limited comparison with chest CT from [facility]2019TECHNIQUE: Esophagram was performed with effervescent granules and barium.FLUOROSCOPIC TIME: 1.5 minutes.NUMBER OF IMAGES: 9 fluoroscopic images.IMPRESSION:No strictures. Normal esophageal mucosa.Nonspecific esophageal dysmotility, with mildly delayed esophageal emptying and scatterednonpropulsive tertiary contraction waves.There is a moderately sized type III hiatal hernia. There was mild spontaneous gastroesophageal reflux.1OP17RAD_PS01[facility] HospitalCT Chest Wo Contrast Abdomen Wo Contrast Pelvis Wo Ilkshaep7234-21-50 15:23:55EXAMINATION: CT CHEST WO CONTRAST ABDOMEN WO [...] chronic and incidental findings as detailed above. [facility]-[id number] Dictated and approved by radiology resi dent/fellow: Jenna Valenzuela M.D. I, Medhat Flowers Jr., M.D., personally reviewed the images and resident's/fellow's findings and agree with the final report.[facility], Radiology Results Incoming - [...] no secondary signs of right lower quadrant inflamm ation.PERITONEUM/RETROPERITONEUM: No free air or fluid. No lymphadenopathy.VASCULATURE: [...] aorta.4.Additional chronic and incidental findings as detailed above.[facility]-[id number] and approved by residential insurance inspector/fellow: Jenna Valenzuela M.D.I, Medhat Flowers Jr., M.D., personally reviewed the images and resident's/fellow's findings and agree with the final report. [facility] Contrast Abdomen Wo Contrast Pelvis Wo Contrast 2020-04-21 15:23:55EXAMINATION: CT CHEST WO CONTRAST ABDOMEN WO [...] chronic and incidental findings as detailed above. [facility]-[id number] Dictated and approved by radiology resi dent/fellow: Jenna Valenzuela M.D. I, Medhat Flowers Jr., M.D., personally reviewed the images and resident's/fellow's findings and agree with the final report.[facility], Radiology Results Incoming - [...] no secondary signs of right lower quadrant inflamm ation.PERITONEUM/RETROPERITONEUM: No free air or fluid. No lymphadenopathy.VASCULATURE: [...] aorta.4.Additional chronic and incidental findings as detailed above.[facility]-[id number] and approved by residential insurance inspector/fellow: Jenna Valenzuela M.D.I, Medhat Flowers Jr., M.D., personally reviewed the images and resident's/fellow's findings and agree with the final report. [facility] CenterARMANDOA, GC, TV,PCR, IN [id number] 15:38:00 Test Item Value Reference Range Interpretation Comments FT (test code = CHTR) Not detected (qualifier Not Detected N value) FT (test code = Not detected (qualifier Not Detected N NGONO) value) FT (test code = TRVG) Not detected (qualifier Not Detected N value) URINALYSIS WITH [id number] 10:57:00 Test Item Value Reference Range Interpretation Comments Color (test code = UCOLR) Dk. Yellow Clarity (test code = UCLAR) Hazy Glucose (test code = UGLUC) NEGATIVE NEGATIVE N Bilirubin (test code = UBILI) NEGATIVE NEGATIVE N Ketones (test code = UKET) NEGATIVE NEGATIVE N Specific Gilman (test code = 1.025 1.005-1.030 A USPGR) [...]
--- NOTE | 2021-02-03 18:43 | RAD REPORT ---
EXAM DESCRIPTION: RAD - Chest Single View - 02/03/2021 6:02 pm CLINICAL HISTORY: SOB COMPARISON: Chest Single View dated 02/01/2021; Chest Single View dated 01/31/2021; Chest Single View dated 01/28/2021; Chest Single View dated 12/16/2020 FINDINGS: Lines: None. Lungs: No evidence of edema or pneumonia. Pleural: No significant pleural effusions or pneumothorax. Cardiac: Cardiomegaly. Bones: No acute fractures. Bilateral shoulder arthroplasties Other: IMPRESSION: No acute cardiopulmonary disease.
[2021-02-03] MEDS ORDERED: METHYLPREDNISOLONE 125 MG INJ ONE (18:53)
[2021-02-03] MEDS ORDERED: LEVALBUTEROL 1.25 MG/3 ML NEB ONE (18:54)
[2021-02-03 18:57] LABS: Absolute Lymphocytes (CBC) 1.7 K/uL (0.7-4.9); Basophils % 0.5 % (0-1.3); Hematocrit 32.1 % (36.0-45.0); Lymphocytes % 23.8 % (15.3-44.8); MPV 7.5 fL (7.6-11.3); RBC Red Blood Cell Count 4.54 M/uL (3.86-4.86)
[2021-02-03 19:09] LABS: ALT/SGPT 40 U/L (12-78); AST/SGOT 48 U/L (15-37); Albumin 3.2 g/dL (3.4-5.0); Alkaline Phosphatase 75 U/L (45-117); BUN Blood Urea Nitrogen 12 mg/dL (7-18); Bicarbonate 30 mmol/L (21-32); Bilirubin Direct 0.1 mg/dL (0-0.2); Bilirubin Total 0.4 mg/dL (0.2-1.0); Glucose Level 100 mg/dL (74-106); NT PRO-BNP 1943 pg/mL (<125); Sodium Level 142 mmol/L (136-145); Troponin (Emerg Dept Use Only) < 0.02 ng/mL (0.0-0.045)
--- NOTE | 2021-02-03 20:12 | ER ---
Nurse's Notes [facility] Name: Marjan Fleming Age: 66 yrs Sex: Female : 1955 Arrival Date: 02/03/2021 Time: 16:36 Bed 15 Private MD: Diagnosis: COPD/ Chronic obstructive pulmonary disease, unspecified Presentation: 02/03 16:51 Chief complaint: Patient states: SOB x 1 week ago. Pt states "I've been here over the aa5 last 3 days but I feel like I can't breath and there is something wrong with me". Coronavirus screen: shortness of breath. Ebola Screen: Patient negative for fever greater than or equal to 101.5 degrees Fahrenheit, and additional compatible Ebola Virus Disease symptoms. Initial Sepsis Screen: Does the patient meet any 2 criteria? No. Patient's initial sepsis screen is negative. Does the patient have a suspected source of infection? No. Patient's initial sepsis screen is negative. Risk Assessment: Do you want to hurt yourself or someone else? Patient reports no desire to harm self or others. Onset of symptoms was January 2021. 16:51 Method Of Arrival: Wheelchair aa5 16:51 Acuity: BLAYNE 3 aa5 19:49 Note Provider at bedside pt requesting pain meds for 9/10 rib cage pain. LS slight exp df1 wheeze. Resp to come for treatment. Pt given pillow, blanket and snack. Lights off. Triage Assessment: 17:06 General: Appears in no apparent distress. Behavior is anxious. Respiratory: No deficits kh1 noted. Reports shortness of breath at rest Onset: The symptoms/episode began/occurred gradually, the patient has mild shortness of breath. Historical: - Allergies: 16:52 Bactrim DS; aa5 16:52 butorphanol tartrate; aa5 16:52 Fentanyl; aa5 16:52 metoclopramide HCl; aa5 16:52 Reglan; aa5 16:52 Stadol; aa5 16:52 sulfamethoxazole (bulk); aa5 16:52 TRIMETHOPRIM; aa5 - PMHx: 16:52 Anxiety; Atrial Fib; Bipolar disorder; Chronic pain; COPD; esophageal varices; aa5 Hepatitis; HIV; Hypertension; Migraines; Panic Attacks; - PSHx: 16:52 hernia repair; aa5 - Immunization history:: Client reports receiving the 2nd dose of the Covid vaccine. - Social history:: Smoking status: Patient denies any tobacco usage or history of. Screenin:08 Abuse screen: Denies threats or abuse. Nutritional screening: No deficits noted. kh1 Tuberculosis screening: No symptoms or risk factors identified. Fall Risk No IV (0 pts). Assessment: 17:07 Pain: Denies pain. Cardiovascular: No deficits noted. Reports fatigue, shortness of kh1 breath. Respiratory: Airway is patent Respiratory effort is even, unlabored. 18:39 Reassessment: Patient appears in no apparent distress at this time. No changes from [facility] previously documented assessment. Patient and/or family updated on plan of care and expected duration. Pain level reassessed. Patient is alert, oriented x 3, equal unlabored respirations, skin warm/dry/pink. 20:49 Respiratory: Breath sounds with wheezes bilaterally. df1 20:49 Cardiovascular: Rhythm is regular. df1 Vital Signs: 16:52 BP 168 / 80; Pulse 67; Resp 22 S; Temp 98.0(TE); Pulse Ox 97% on R/A; Weight 97.52 kg aa5 (R); Height 5 ft. 4 in. (162.56 cm) (R); 17:06 BP 155 / 85; Pulse 65; Resp 17; Temp 97.; Pulse Ox 99% on R/A; kh1 19:47 BP 155 / 95; Pulse 71; Resp 18; Pulse Ox 97% on R/A; df1 16:52 Body Mass Index 36.90 (97.52 kg, 162.56 cm) aa5 ED Course: 16:36 Patient arrived in ED. mr 16:51 Arm band placed on. aa5 16:52 Triage completed. aa5 17:04 Austin Raza NP is PHCP. pm1 17:04 Justus Kolb MD is Attending Physician. pm1 17:06 Little Grissom is Primary Nurse. kh1 17:08 No provider procedures requiring assistance completed. kh1 18:02 XRAY Chest (1 view) In Process Unspecified. EDMS 18:28 Magnesium Sent. kh1 18:28 NT PRO-BNP Sent. kh1 18:28 Basic Metabolic Panel Sent. kh1 18:28 CBC with Automated Diff Sent. kh1 18:37 Basic Metabolic Panel Sent. kh1 18:37 CBC with Diff Sent. kh1 18:37 LFT's Sent. kh1 18:37 Magnesium Sent. kh1 18:37 NT PRO-BNP Sent. kh1 18:37 Troponin (emerg Dept Use Only) Sent. kh1 20:49 Patient has correct armband on for positive identification. df1 20:50 IV discontinued, intact. df1 Administered Medications: 18:36 Drug: Xopenex (levalbuterol) (3) 1.25 mg Route: Inhalation; kh1 18:36 Drug: SOLU-Medrol (methylPrednisoLONE) 125 mg Route: IVP; Site: left upper arm; kh1 20:08 Drug: Demerol (meperidine) 25 mg Route: IVP; Site: left upper arm; df1 20:08 Drug: Albuterol 2.5 mg Route: Inhalation; df1 20:09 Drug: Zofran (Ondansetron) 4 mg Route: IVP; Site: left upper arm; df1 Outcome: 20:11 Discharge ordered by MD. pm1 20:50 Discharged to home df1 20:50 Condition: good 20:50 Discharge instructions given to patient. 20:51 Patient left the ED. df1 Signatures: Dispatcher [employer] Jessie Lozano Schulz, Lindsay RN RN aa5 Austin Raza, TIMBO MASTICATOR pm1 Little Grissom 1 Yenifer Reis df1
--- NOTE | 2021-02-03 20:12 | EDPHYS ---
Physician Documentation [facility] Name: Marjan Fleming Age: 66 yrs Sex: Female : 1955 Arrival Date: 02/03/2021 Time: 16:36 Bed 15 Private MD: ED Physician Justus Kolb HPI: 02/03 17:21 This 66 yrs old Female presents to ER via Wheelchair with complaints of pm1 Breathing Difficulty. 17:21 The patient has shortness of breath at rest. Onset: The symptoms/episode began/occurred pm1 today. Duration: The symptoms are chronic, are continuous, Without electricity and subsequently able to use her nebulizer machine. The patient's shortness of breath is aggravated by Lack of breathing treatment, is alleviated by nothing. Associated signs and symptoms: Pertinent negatives: chest pain, fever, nausea, vomiting. Severity of symptoms: in the emergency department the symptoms are worse. The patient has experienced similar episodes in the past, multiple times. The patient has been recently seen at the [facility] Emergency Department, this week, Abdominal pain and chest pain. Historical: - Allergies: 16:52 Bactrim DS; aa5 16:52 butorphanol tartrate; aa5 16:52 Fentanyl; aa5 16:52 metoclopramide HCl; aa5 16:52 Reglan; aa5 16:52 Stadol; aa5 16:52 sulfamethoxazole (bulk); aa5 16:52 TRIMETHOPRIM; aa5 - PMHx: 16:52 Anxiety; Atrial Fib; Bipolar disorder; Chronic pain; COPD; esophageal varices; aa5 Hepatitis; HIV; Hypertension; Migraines; Panic Attacks; - PSHx: 16:52 hernia repair; aa5 - Immunization history:: Client reports receiving the 2nd dose of the Covid vaccine. - Social history:: Smoking status: Patient denies any tobacco usage or history of. ROS: 17:21 Constitutional: Negative for fever, chills, and weight loss, Neck: Negative for injury, pm1 pain, and swelling, Cardiovascular: Negative for chest pain, palpitations, and edema. 17:21 Abdomen/GI: Negative for abdominal pain, nausea, vomiting, diarrhea, and constipation, Back: Negative for injury and pain, MS/Extremity: Negative for injury and deformity, Skin: Negative for injury, rash, and discoloration, Neuro: Negative for headache, weakness, numbness, tingling, and seizure. 17:21 Respiratory: Positive for shortness of breath, wheezing, Negative for cough, sputum production. 17:21 All other systems are negative. Exam: 17:21 Constitutional: This is a well developed, well nourished patient who is awake, alert, pm1 and in no acute distress. Head/Face: Normocephalic, atraumatic. 17:21 Skin: Warm, dry with normal turgor. Normal color with no rashes, no lesions, and no evidence of cellulitis. MS/ Extremity: Pulses equal, no cyanosis. Neurovascular intact. Full, normal range of motion. 17:21 Eyes: Exam is negative for acute changes, Extraocular movements: intact throughout, Conjunctiva: no acute changes, no injection, Sclera: no acute changes, icterus, is not appreciated. 17:21 ENT: Exam is negative for acute changes, Mouth: Lips: normal, moist, Oral mucosa: normal, pink and intact, moist. 17:21 Cardiovascular: Exam negative for acute changes, Rate: normal, Rhythm: regular, Pulses: no pulse deficits are appreciated. 17:21 Respiratory: Exam negative for acute changes, respiratory distress, shortness of breath, the patient does not display signs of respiratory distress, Respirations: no acute changes, Breath sounds: wheezing: expiratory that is mild, is heard diffusely. 17:21 Abdomen/GI: Inspection: abdomen appears normal, Palpation: abdomen is soft and non-tender, in all quadrants. 17:21 Neuro: Exam negative for acute changes, Orientation: is normal, Mentation: is normal, Motor: is normal, moves all fours. Vital Signs: 16:52 BP 168 / 80; Pulse 67; Resp 22 S; Temp 98.0(TE); Pulse Ox 97% on R/A; Weight 97.52 kg aa5 (R); Height 5 ft. 4 in. (162.56 cm) (R); 17:06 BP 155 / 85; Pulse 65; Resp 17; Temp 97.; Pulse Ox 99% on R/A; kh1 19:47 BP 155 / 95; Pulse 71; Resp 18; Pulse Ox 97% on R/A; df1 16:52 Body Mass Index 36.90 (97.52 kg, 162.56 cm) aa5 MDM: 17:07 Patient medically screened. pm1 19:51 ED course: Patient presenting to the ER here with complaints of shortness of breath due pm1 to lack of electricity and inability to use her nebulizer. Patient denied any pain. However patient is now asking for pain medications for her chronic pain. Explained to the patient I have seen her 3 times in the past 4 days and she has been asking for IV pain medication, specifically Demerol during each visit. Explained to her that narcotic pain medications are indicated for acute pain in the ER. Explained to her that today will be the last time I treat her chronic pain with IV pain medications. Patient states that she understands. 20:00 Data reviewed: vital signs. Data interpreted: Pulse oximetry: on room air is 97 %. pm1 Interpretation: normal. 20:00 Counseling: I had a detailed discussion with the patient and/or guardian regarding: the pm1 historical points, exam findings, and any diagnostic results supporting the discharge/admit diagnosis, lab results, radiology results, the need for outpatient follow up, a family practitioner, a breaker machine operator, to return to the emergency department if symptoms worsen or persist or if there are any questions or concerns that arise at home. 02/03 17:15 Order name: Basic Metabolic Panel pm1 02/03 17:15 Order name: CBC with Diff pm1 02/03 17:15 Order name: LFT's pm1 02/03 17:15 Order name: Magnesium pm1 02/03 17:15 Order name: NT PRO-BNP pm1 02/03 17:15 Order name: PT-INR; Complete Time: 21:13 pm1 02/03 17:15 Order name: Troponin (emerg Dept Use Only); Complete Time: 19:09 pm1 02/03 17:15 Order name: XRAY Chest (1 view); Complete Time: 18:57 pm1 02/03 17:16 Order name: Basic Metabolic Panel; Complete Time: 19: EDMS 02/03 17:16 Order name: CBC with Automated Diff EDMS 02/03 17:16 Order name: Liver (Hepatic) Function; Complete Time: 19:09 EDMS 02/03 17:16 Order name: Magnesium; Complete Time: 19: EDMS 02/03 17:16 Order name: NT PRO-BNP; Complete Time: 19: [facility] 02/03 17:15 Order name: EKG; Complete Time: 17:16 pm1 02/03 17:15 Order name: Cardiac monitoring; Complete Time: 18:37 pm1 02/03 17:15 Order name: EKG - Nurse/Tech; Complete Time: 18:37 pm1 02/03 17:15 Order name: IV Saline Lock; Complete Time: 18:37 pm1 02/03 17:15 Order name: Labs collected and sent; Complete Time: 18:37 pm1 02/03 17:15 Order name: O2 Per Protocol; Complete Time: 18:37 pm1 02/03 17:15 Order name: O2 Sat Monitoring; Complete Time: 18:37 pm1 Administered Medications: 18:36 Drug: Xopenex (levalbuterol) (3) 1.25 mg Route: Inhalation; kh1 18:36 Drug: SOLU-Medrol (methylPrednisoLONE) 125 mg Route: IVP; Site: left upper arm; kh1 20:08 Drug: Demerol (meperidine) 25 mg Route: IVP; Site: left upper arm; df1 20:08 Drug: Albuterol 2.5 mg Route: Inhalation; df1 20:09 Drug: Zofran (Ondansetron) 4 mg Route: IVP; Site: left upper arm; df1 Disposition: 02/04 06:43 Co-signature as Attending Physician, Justus Kolb MD I agree with the assessment and thomas plan of care. Disposition Summary: 02/03/21 20:11 Discharge Ordered Location: Home pm1 Problem: new pm1 Symptoms: have improved pm1 Condition: Stable pm1 Diagnosis - COPD/ Chronic obstructive pulmonary disease, unspecified pm1 Followup: pm1 - With: Emergency Department - When: As needed - Reason: Worsening of condition Followup: pm1 - With: Private Physician - When: 2 - 3 days - Reason: Recheck today's complaints, Continuance of care, Re-evaluation by your physician Discharge Instructions: - Discharge Summary Sheet pm1 - Chronic Obstructive Pulmonary Disease pm1 Forms: - Medication Reconciliation Form pm1 - Thank You Letter pm1 - Antibiotic Education pm1 - Prescription Opioid Use pm1 Prescriptions: - Prednisone 20 mg Oral Tablet - take 3 tablets by ORAL route once daily for 5 days; 15 tablet; Refills: 0, pm1 Product Selection Permitted Signatures: Dispatcher [employer] Justus Long MD MD cha Calderon, Audri, RN RN aa5 Austin Raza, COMPUTER NUMERICAL CONTROL PROGRAMMER COMPUTER NUMERICAL CONTROL PROGRAMMER pm1 [place] kh1 Yenifer Reis df1
[2021-02-03 20:22] LABS: Protime INR 1.21
[2021-02-03] MEDS ORDERED: MEPERIDINE HCL 25 MG/ML SYR ONE (20:23)
[2021-02-03] MEDS ORDERED: ONDANSETRON 4 MG/2 ML VIAL ONE (20:24)
[2021-02-03] MEDS ORDERED: ALBUTEROL 2.5 MG/3 ML NEB SOL ONE (20:24)
[2021-02-03 21:17] VITALS: TEMP 97
[2021-02-03 21:18] VITALS: BP 155/95; O2SAT 97
[2021-02-03 21:22] LABS: Anisocytosis 1+; Blood Morphology Comment NOTED (NOT SEEN); Hypochromasia 1+; Platelet Estimate ADEQ; Poikilocytosis SLIGHT; White Blood Cell Scan OK (OK)
[2021-02-03 21:23] LABS: Teardrop Cell FEW
--- NOTE | 2021-02-04 14:39 | EKG ---
Test Date: 2021-02-03 Test Time: 18:50:19 Solar Photovoltaic Installer: REGINA MEASUREMENT RESULTS: Intervals: Rate: 65 IN: 174 QRSD: 76 QT: 438 QTc: 455 [place]: P: 70 IN: 174 QRS: 43 T: 65 INTERPRETIVE STATEMENTS: Normal sinus rhythm Nonspecific ST and T wave abnormality Abnormal ECG Compared to ECG 02/01/2021 12:22:09 ST (T wave) deviation now present Electronically Signed On 02-04-21 14:38:26 CDT by Per Crane
== END 2021-02-03 20:51 | disposition home or self-care (01) ==
LOC: ER 16:32
DX: J44.9 Chronic obstructive pulmonary disease, unspecified (principal); I10 Essential (primary) hypertension; Z21 Asymptomatic human immunodeficiency virus [HIV] infection status; Z88.1 Allergy status to other antibiotic agents; Z88.2 Allergy status to sulfonamides; Z88.5 Allergy status to narcotic agent; Z88.8 Allergy status to other drugs, medicaments and biological substances
CPT/HCPCS: 93005; 85025; 80048; 36415; 83735; 85610; 80076; 84484; 83880; 71045; 96375; 96374; 99284; J2175; J2930; J2405

== ENCOUNTER 2021-03-13 13:21 | Inpatient (IN) | payer OTHER ==
[2021-03-13] MEDS ORDERED: ONDANSETRON 4 MG (ODT) TAB ONE (14:01)
--- NOTE | 2021-03-13 14:21 | RAD REPORT ---
EXAM DESCRIPTION: RAD - Chest Pa And Lat (2 Views) - 03/13/2021 2:07 pm CLINICAL HISTORY: SOB Chest pain. COMPARISON: Chest Single View dated 03/05/2021; Chest Single View dated 02/03/2021; Chest Single View dated 02/01/2021; Chest Single View dated 01/31/2021 FINDINGS: Minimal interstitial pulmonary edema. The heart is moderately enlarged. Bilateral shoulder arthroplasties. IMPRESSION: Minimal CHF pattern.
[2021-03-13 17:09] LABS: Absolute Lymphocytes (CBC) 0.6 K/uL (0.7-4.9); Basophils % 0.6 % (0-1.3); Hematocrit 33.6 % (36.0-45.0); Lymphocytes % 5.3 % (15.3-44.8); RBC Red Blood Cell Count 4.81 M/uL (3.86-4.86)
[2021-03-13 17:25] LABS: ALT/SGPT 71 U/L (12-78); AST/SGOT 53 U/L (15-37); Albumin 3.2 g/dL (3.4-5.0); Alkaline Phosphatase 68 U/L (45-117); BUN Blood Urea Nitrogen 25 mg/dL (7-18); Bicarbonate 30 mmol/L (21-32); Bilirubin Direct 0.2 mg/dL (0-0.2); Bilirubin Total 0.5 mg/dL (0.2-1.0); Glucose Level 109 mg/dL (74-106); Lipase 95 U/L (73-393); Magnesium 2.1 mg/dL (1.8-2.4); NT PRO-BNP 2414 pg/mL (<125); Potassium 4.1 mmol/L (3.5-5.1); Protein, Total 7.2 g/dL (6.4-8.2); Sodium Level 139 mmol/L (136-145); Troponin (Emerg Dept Use Only) < 0.02 ng/mL (0.0-0.045)
[2021-03-13] MEDS ORDERED: MECLIZINE HCL 12.5 MG TAB ONE (17:38)
[2021-03-13] MEDS ORDERED: MORPHINE 4 MG/ML SYR ONE (17:38)
[2021-03-13] MEDS ORDERED: ONDANSETRON 4 MG/2 ML VIAL ONE ×2 (17:38→20:00)
[2021-03-13] MEDS ORDERED: ALBUTEROL 2.5 MG/3 ML NEB SOL ONE (17:39)
[2021-03-13] MEDS ORDERED: METHYLPREDNISOLONE 125 MG INJ ONE (17:39)
[2021-03-13] MEDS ORDERED: IPRATROPIUM BROM 0.5MG/2.5ML ONE (17:39)
[2021-03-13] MEDS ORDERED: FUROSEMIDE 40 MG/4 ML VIAL ONE (19:36)
[2021-03-13 19:55] LABS: White Blood Cell Scan OK (OK)
[2021-03-13 19:56] LABS: Blood Morphology Comment NOTED (NOT SEEN); Hypochromasia 1+; Platelet Estimate ADEQ
[2021-03-13] MEDS ORDERED: ACETAMINOPHEN 325 MG TABLET ONE (19:59)
--- NOTE | 2021-03-13 21:23 | ER ---
Nurse's Notes [facility] Name: Marjan Fleming Age: 66 yrs Sex: Female : 1955 Arrival Date: 03/13/2021 Time: 13:24 Bed 25 Private MD: Diagnosis: COPD/ Chronic obstructive pulmonary disease with (acute) exacerbation Presentation: 03/13 13:32 Chief complaint: Patient states: SOB and vomiting. Pt reports she was admitted to [address]. 13:32 Acuity: BLAYNE 3 aa5 13:32 Coronavirus screen: vomiting. Ebola Screen: Patient negative for fever greater than or aa5 equal to 101.5 degrees Fahrenheit, and additional compatible Ebola Virus Disease symptoms. Initial Sepsis Screen: Does the patient meet any 2 criteria? No. Patient's initial sepsis screen is negative. Does the patient have a suspected source of infection? No. Patient's initial sepsis screen is negative. Risk Assessment: Do you want to hurt yourself or someone else? Patient reports no desire to harm self or others. Onset of symptoms was February 2021. 13:32 Method Of Arrival: Wheelchair [facility] Triage Assessment: 16:00 General: Appears obese, Behavior is restless. 2 16:00 Pain: Alleviated by medications. GI: nausea. 2 Historical: - Allergies: 13:32 Bactrim DS; aa5 13:32 butorphanol tartrate; aa5 13:32 Fentanyl; aa5 13:32 metoclopramide HCl; aa5 13:32 Reglan; aa5 13:32 Stadol; aa5 13:32 sulfamethoxazole (bulk); aa5 13:32 TRIMETHOPRIM; aa5 - PMHx: 13:32 Anxiety; Atrial Fib; Bipolar disorder; Chronic pain; COPD; esophageal varices; aa5 Hepatitis; HIV; Hypertension; Hypertensive disorder; Migraines; Panic Attacks; - PSHx: 13:32 Appendectomy; Bilateral shoulder repair; Cholecystectomy; hernia repair; aa5 - Immunization history:: Client reports receiving the 2nd dose of the Covid vaccine. - Social history:: Smoking status: Patient denies any tobacco usage or history of. Screenin:13 Abuse screen: Denies threats or abuse. Nutritional screening: No deficits noted. 2 Tuberculosis screening: No symptoms or risk factors identified. Fall Risk None identified. Assessment: 19:15 Reassessment:. Respiratory: Airway is patent Breath sounds with wheezes bilaterally. in cc4 right upper lobe and left upper lobe Lasix 40 mg given IVP; O2 sat 92% RA; c/o nausea; no vomiting noted. GI: Abdomen is obese, Bowel sounds present X 4 quads. Abd is soft and non tender. 19:33 Pain: Complains of pain in head. GI: Abdomen is obese, Bowel sounds present X 4 quads. cc4 Abd is soft and non tender Reports nausea, JOSE M Caputo notified; medicated as ordered. 19:33 Pain: Complains of pain in head Pain does not radiate. Pain currently is 10 out of 10 cc4 on a pain scale. Quality of pain is described as aching. 19:50 Reassessment: Blood drawn \\T\\ sent to lab for repeat troponin. cc4 19:50 Reassessment: Asking for sandwich; eating with no n/v. cc4 21:25 Reassessment: Slight expiratory wheeze audible; refusing albuteral/atrovent neb cc4 treatment stating, "I've been getting those all day"; JOSE M Caputo notified. 21:45 Reassessment: c/o nausea; vomited approx. 50ml of undigested food; phenergan 12.5 mg cc4 given IVP as ordered; reports headache decreased to 7/10 on pain scale. 22:30 Reassessment: Patient appears in no apparent distress at this time. Reports relief of cc4 nausea; no audible wheeze noted of respirations \\T\\ present time. 03/14 00:42 Reassessment: pt is A\\T\\O x 4, resp unlabored, report called to receiving RN for room 425.bb Vital Signs: 03/13 13:32 BP 135 / 99; Pulse 73; Resp 20 S; Temp 99.0(TE); Pulse Ox 97% on R/A; Weight 97.52 kg aa5 (R); Height 5 ft. 4 in. (162.56 cm) (R); 16:15 BP 149 / 90; Pulse 75; Resp 18; Temp 98.5; sl2 17:15 BP 132 / 78; Pulse 78; Resp 23; Temp 99.5; Pulse Ox 97% ; sl2 18:15 BP 142 / 76; Pulse 79; Resp 18; Temp 99.5; Pulse Ox 98% ; sl2 19:13 BP 151 / 90; Pulse 76; Resp 22; Temp 99.0; Pulse Ox 92% ; cc4 20:21 BP 149 / 86; Pulse 80; Resp 20; Pulse Ox 97% ; cc4 23:00 BP 118 / 73; Pulse 72; Resp 20; Pulse Ox 94% ; cc4 03/14 00:15 BP 119 / 69; Pulse 68; Resp 20; Temp 99.2(O); Pulse Ox 92% on R/A; cc4 03/13 13:32 Body Mass Index 36.90 (97.52 kg, 162.56 cm) aa5 ED Course: 03/13 13:24 Patient arrived in ED. as 13:32 Arm band placed on. aa5 13:34 Triage completed. aa5 14:07 XRAY Chest Pa And Lat (2 Views) In Process Unspecified. EDMS 15:30 No provider procedures requiring assistance completed. Inserted saline lock: 22 gauge sl2 in left upper arm, using aseptic technique. 16:09 Justus Neil PA is PHCP. cp 16:09 Justus Kolb MD is Attending Physician. cp 16:21 Daysi Velasco, ASHLEY is Primary Nurse. sl2 17:02 Missed attempt(s): 22 gauge in left upper arm. Bleeding controlled, band aid applied, ss catheter tip intact. 21:17 Basic Metabolic Panel Sent. wg 21:17 CBC with Diff Sent. wg 21:17 LFT's Sent. wg 21:17 PT-INR Sent. wg 21:34 Liz Qureshi MD is Hospitalizing Provider. kb 03/14 00:39 Patient has correct armband on for positive identification. bb 00:39 Patient admitted, IV remains in place. bb Administered Medications: 03/13 07:14 Drug: SOLU-Medrol (methylPrednisoLONE) 125 mg Route: IVP; Site: left upper arm; sl2 19:09 Follow up: Response: No adverse reaction sl2 13:36 Drug: Zofran (Ondansetron) 4 mg Route: PO; aa5 13:45 Follow up: Response: No adverse reaction sl2 17:15 Drug: Albuterol - atroVENT (ipratropium) (3:1) (2.5 mg - 0.5 mg) 3 ml Route: Nebulizer; sl2 19:10 Follow up: Response: No adverse reaction sl2 17:16 Drug: Zofran (Ondansetron) 4 mg Route: IVP; Site: left upper arm; sl2 19:10 Follow up: Response: No adverse reaction; Nausea is decreased sl2 17:18 Drug: Meclizine 25 mg Route: PO; sl2 19:10 Follow up: Response: No adverse reaction sl2 17:20 Drug: morphine 4 mg Route: IVP; Site: left upper arm; sl2 19:10 Follow up: Response: No adverse reaction; Pain is decreased sl2 19:15 Drug: Lasix (furosemide) 40 mg Route: IVP; Site: left upper arm; cc4 20:30 Follow up: Urine output 1200 ml cc4 19:33 Drug: Tylenol 1000 mg Route: PO; cc4 20:30 Follow up: Response: Pain is decreased cc4 19:33 Drug: Zofran (Ondansetron) 4 mg Route: IVP; Site: left upper arm; cc4 20:30 Follow up: Response: Nausea unchanged cc4 21:45 Drug: Phenergan (promethazine) 12.5 mg Route: IVP; Site: left upper arm; cc4 22:30 Follow up: Response: No adverse reaction; Nausea is decreased cc4 03/14 00:50 Not Given (Patient Refused): Albuterol 2.5 mg Inhalation once cc4 00:50 Not Given (Patient Refused): AtroVENT (ipratropium) Aerosol 0.5 mg Inhalation once cc4 Output: 03/13 20:30 Urine: 1200ml; Total: 1200ml. cc4 Outcome: 21:22 Discharge ordered by . kb 21:34 Decision to Hospitalize by Provider. kb 03/14 00:38 Admitted to Tele accompanied by tech, via wheelchair, room 425, with chart, Report bb called to Jeff RAMIREZ Condition: stable Instructed on the need for admit. 00:43 Patient left the ED. bb Signatures: Dispatcher [employer] EDMS Rosemary Cespedes, PARIS SALGUERO-Radha Beckford Brenda, RN RN bb Lindsay Schulz RN RN aa5 Sandra Cadet RN RN Justus Herrera PA PA cp Gamba, Liam, Brandy Torres RN RN cc4 Daysi Velasco RN RN sl2 Corrections: (The following items were deleted from the chart) 03/13 21:39 19:16 GI: Reports nausea, sl2 cc4
--- NOTE | 2021-03-13 21:24 | EDPHYS ---
Physician Documentation [facility] Name: Marjan Fleming Age: 66 yrs Sex: Female : 1955 Arrival Date: 03/13/2021 Time: 13:24 Bed 25 Private MD: ED Physician Justus Kolb HPI: 03/13 13:35 This 66 yrs old Female presents to ER via Wheelchair with complaints of cp Nausea/Vomiting, Wheezing > 1 Year, Dizziness. 13:35 The patient has shortness of breath at rest. cp 13:35 Onset: The symptoms/episode began/occurred this morning. The patient presents to the emergency department with nausea, that is moderate. Historical: - Allergies: 13:32 Bactrim DS; aa5 13:32 butorphanol tartrate; aa5 13:32 Fentanyl; aa5 13:32 metoclopramide HCl; aa5 13:32 Reglan; aa5 13:32 Stadol; aa5 13:32 sulfamethoxazole (bulk); aa5 13:32 TRIMETHOPRIM; aa5 - PMHx: 13:32 Anxiety; Atrial Fib; Bipolar disorder; Chronic pain; COPD; esophageal varices; aa5 Hepatitis; HIV; Hypertension; Hypertensive disorder; Migraines; Panic Attacks; - PSHx: 13:32 Appendectomy; Bilateral shoulder repair; Cholecystectomy; hernia repair; aa5 - Immunization history:: Client reports receiving the 2nd dose of the Covid vaccine. - Social history:: Smoking status: Patient denies any tobacco usage or history of. ROS: 13:40 Constitutional: Negative for body aches, chills, fever. cp 13:40 Eyes: Negative for injury, pain, redness, and discharge. cp 13:40 Cardiovascular: Positive for chest pain. 13:40 Respiratory: Positive for shortness of breath, at rest. 13:40 Abdomen/GI: Positive for nausea, vomiting, Negative for diarrhea, constipation. 13:40 Neuro: Negative for altered mental status, headache, syncope, weakness. 13:40 All other systems are negative. Exam: 13:45 Constitutional: The patient appears in no acute distress, alert, awake, cp non-diaphoretic, non-toxic, well developed, well nourished, obese. 13:45 Head/Face: Normocephalic, atraumatic. cp 13:45 Eyes: Periorbital structures: appear normal, Conjunctiva: normal, no exudate, no injection, Sclera: no appreciated abnormality, Lids and lashes: appear normal, bilaterally. 13:45 ENT: External ear(s): are unremarkable, Nose: is normal, Mouth: Lips: moist, Oral mucosa: moist, Posterior pharynx: Airway: no evidence of obstruction, patent. 13:45 Chest/axilla: Inspection: normal. 13:45 Cardiovascular: Rate: normal, Rhythm: regular, Edema: is not appreciated, JVD: is not appreciated. 13:45 Respiratory: the patient does not display signs of respiratory distress, Respirations: labored breathing, is not present, intercostal retractions, are absent, Breath sounds: decreased breath sounds, are not appreciated, stridor, is not appreciated, + upper airway congestion. 13:45 Abdomen/GI: Exam negative for discomfort, distension, guarding, Inspection: abdomen appears normal. 13:45 Back: pain, is absent, ROM is normal. 13:45 Skin: no rash present. 13:45 Neuro: Orientation: to person, place \T\ time. Mentation: is normal, Motor: moves all fours, strength is normal, Sensation: no obvious gross deficits. 18:12 ECG was reviewed by the Attending Physician. cp Vital Signs: 13:32 BP 135 / 99; Pulse 73; Resp 20 S; Temp 99.0(TE); Pulse Ox 97% on R/A; Weight 97.52 kg aa5 (R); Height 5 ft. 4 in. (162.56 cm) (R); 16:15 BP 149 / 90; Pulse 75; Resp 18; Temp 98.5; sl2 17:15 BP 132 / 78; Pulse 78; Resp 23; Temp 99.5; Pulse Ox 97% ; sl2 18:15 BP 142 / 76; Pulse 79; Resp 18; Temp 99.5; Pulse Ox 98% ; sl2 19:13 BP 151 / 90; Pulse 76; Resp 22; Temp 99.0; Pulse Ox 92% ; cc4 20:21 BP 149 / 86; Pulse 80; Resp 20; Pulse Ox 97% ; cc4 23:00 BP 118 / 73; Pulse 72; Resp 20; Pulse Ox 94% ; cc4 03/14 00:15 BP 119 / 69; Pulse 68; Resp 20; Temp 99.2(O); Pulse Ox 92% on R/A; cc4 03/13 13:32 Body Mass Index 36.90 (97.52 kg, 162.56 cm) aa5 MDM: 03/13 16:13 Patient medically screened. thomas 21:19 Data reviewed: vital signs, nurses notes. Data interpreted: Pulse oximetry: on room air kb is 98 %. Interpretation: normal. Counseling: I had a detailed discussion with the patient and/or guardian regarding: the historical points, exam findings, and any diagnostic results supporting the discharge/admit diagnosis, lab results, radiology results, the need for outpatient follow up, a family practitioner, to return to the emergency department if symptoms worsen or persist or if there are any questions or concerns that arise at home. 21:32 ED course: Pt states she needs to stay overnight for observation. States Dr Sheila taylor told her to come to the ER and she is not leaving until he sees her. Pt has audible expiratory wheezing at this time. Will admit to hospitalist for COPD exacerbation. O2 sat dropped to 87% at the lowest. 03/13 16:16 Order name: Basic Metabolic Panel cp 03/13 16:16 Order name: CBC with Diff cp 03/13 16:16 Order name: LFT's cp 03/13 16:16 Order name: Magnesium; Complete Time: 18:26 cp 03/13 16:16 Order name: NT PRO-BNP; Complete Time: 18:26 cp 03/13 18:26 Interpretation: Abnormal: NT PRO-BNP 2414. cp 03/13 16:16 Order name: PT-INR cp 03/13 16:16 Order name: Troponin (emerg Dept Use Only); Complete Time: 18:26 cp 03/13 16:16 Order name: Lipase; Complete Time: 18:26 cp 03/13 16:17 Order name: Basic Metabolic Panel; Complete Time: 18:26 EDMS 03/13 18:27 Interpretation: Normal except: GLUC 109; BUN 25; GFR 56; CA 8.4. cp 03/13 16:17 Order name: CBC with Automated Diff; Complete Time: 21:21 EDMS 03/13 18:27 Interpretation: Normal except: HGB 10.4; HCT 33.6; MCV 69.9; MCH 21.5; MCHC 30.8; PLT cp 251; RDW 19.7; MPV 7.0; ADE% 90.4; LYM% 5.3; NEUT A 9.6; LYMA 0.6. 03/13 16:17 Order name: Liver (Hepatic) Function; Complete Time: 18:26 EDMS 03/13 19:30 Order name: Troponin (emerg Dept Use Only); Complete Time: 21:21 kb 03/13 19:56 Order name: CBC Smear Scan; Complete Time: 21:21 EDMS 03/13 13:39 Order name: XRAY Chest Pa And Lat (2 Views); Complete Time: 16:48 cp 03/13 22:29 Order name: SARS-COV-2 RT PCR; Complete Time: 23:27 EDMS 03/13 16:16 Order name: EKG; Complete Time: 16:18 cp 03/13 16:16 Order name: Cardiac monitoring; Complete Time: 17:55 cp 03/13 16:16 Order name: EKG - Nurse/Tech; Complete Time: 19:11 cp 03/13 16:16 Order name: IV Saline Lock; Complete Time: 17:55 cp 03/13 16:16 Order name: Labs collected and sent; Complete Time: 17:56 cp 03/13 16:16 Order name: O2 Per Protocol; Complete Time: 17:55 cp 03/13 16:16 Order name: O2 Sat Monitoring; Complete Time: 17:55 cp 03/13 22:14 Order name: CONS Physician Consult EDMS EC:12 Rate is 80 beats/min. Rhythm is regular. AR interval is normal. QRS interval is normal. cp QT interval is normal. Interpreted by me. Reviewed by me. Administered Medications: 07:14 Drug: SOLU-Medrol (methylPrednisoLONE) 125 mg Route: IVP; Site: left upper arm; sl2 19:09 Follow up: Response: No adverse reaction sl2 13:36 Drug: Zofran (Ondansetron) 4 mg Route: PO; aa5 13:45 Follow up: Response: No adverse reaction sl2 17:15 Drug: Albuterol - atroVENT (ipratropium) (3:1) (2.5 mg - 0.5 mg) 3 ml Route: Nebulizer; sl2 19:10 Follow up: Response: No adverse reaction sl2 17:16 Drug: Zofran (Ondansetron) 4 mg Route: IVP; Site: left upper arm; sl2 19:10 Follow up: Response: No adverse reaction; Nausea is decreased sl2 17:18 Drug: Meclizine 25 mg Route: PO; sl2 19:10 Follow up: Response: No adverse reaction sl2 17:20 Drug: morphine 4 mg Route: IVP; Site: left upper arm; sl2 19:10 Follow up: Response: No adverse reaction; Pain is decreased sl2 19:15 Drug: Lasix (furosemide) 40 mg Route: IVP; Site: left upper arm; cc4 20:30 Follow up: Urine output 1200 ml cc4 19:33 Drug: Tylenol 1000 mg Route: PO; cc4 20:30 Follow up: Response: Pain is decreased cc4 19:33 Drug: Zofran (Ondansetron) 4 mg Route: IVP; Site: left upper arm; cc4 20:30 Follow up: Response: Nausea unchanged cc4 21:45 Drug: Phenergan (promethazine) 12.5 mg Route: IVP; Site: left upper arm; cc4 22:30 Follow up: Response: No adverse reaction; Nausea is decreased cc4 03/14 00:50 Not Given (Patient Refused): Albuterol 2.5 mg Inhalation once cc4 00:50 Not Given (Patient Refused): AtroVENT (ipratropium) Aerosol 0.5 mg Inhalation once cc4 Disposition Summary: 03/13/21 21:34 Hospitalization Ordered Hospitalization Status: Observation Provider: Liz Qureshi Location: Telemetry/MedSur (observation)(03/13/21 21:34) kb Condition: Stable(03/13/21 21:34) kb Problem: new kb Symptoms: are unchanged kb Bed/Room Type: Standard Room Assignment: 425(03/13/21 23:50) Diagnosis - COPD/ Chronic obstructive pulmonary disease with (acute) exacerbation(03/13/21 kb 21:34) Forms: - Medication Reconciliation Form kb - SBAR form kb Addendum: 03/16/2021 10:28 Co-signature as Attending Physician, Justus Kolb MD I agree with the assessment and c restrepo plan of care. Signatures: Dispatcher [employer] Rosemary Singh FNP-C SPECIAL OFFICER-Ckb Gracia Monzon RN RN Justus Mckeon MD MD cha Calderon, Audri, RN RN aa5 Justus Neil PA PA cp Johnson, Evan, PA PA ej Cooper, Christie, RN RN cc4 Daysi Velasco, RN RN sl2 Corrections: (The following items were deleted from the chart) 03/13 13:43 13:36 Chest Single View+RAD.RAD.BRZ ordered. EDMS EDMS 16:26 16:18 Chest Single View+RAD.RAD.BRZ ordered. EDMS EDMS 18:27 18:27 Normal except: GLUC 109; BUN 25; GFR 56. cp cp 21:34 21:22 Home kb kb 21:34 21:22 Stable kb kb 21:34 21:22 Nausea with vomiting, unspecified kb kb 21:34 21:22 COPD/ Chronic obstructive pulmonary disease with (acute) exacerbation kb kb 22:29 22:06 CORONAVIRUS+MR.LAB.BRZ ordered. EDMS EDMS 23:50 21:34 kb mw
[2021-03-13] MEDS ORDERED: PROMETHAZINE INJ 25 MG/ML AMP ONE (22:14)
[2021-03-14 00:21] LABS: Protime INR 1.26
[2021-03-14] MEDS ORDERED: ONDANSETRON 4 MG/2 ML VIAL IV PRN ×2 (01:04→12:46)
[2021-03-14] MEDS ORDERED: HYDRALAZINE HCL 20 MG/ML VIAL IV PRN (01:04)
[2021-03-14 01:16] VITALS: BMI 37.0
--- NOTE | 2021-03-14 01:32 | P.HP ---
Certification for Inpatient Patient admitted to: Observation With expected LOS: <2 Midnights Patient will require the following post-hospital care: None Practitioner: I am a practitioner with admitting privileges, knowledge of patient current condition, hospital course, and medical plan of care. Services: Services provided to patient in accordance with Admission requirements found in Title 42 Section 412.3 of the Code of Federal Regulations Patient History Date of Service: 03/13/21 Reason for admission: dyspnea, N/V/D History of Present Illness: Ms. Fleming is a 66 yo F with COPD who presents with nausea, vomiting, diarrhea and dyspnea beginning yesterday. She also reports headache, lightheadedness, blurry vision and cough. She does not feel she gets relief with her nebulizer. She denies abdominal pain, recent use of antibiotics. COVID negative. Her solar energy sales specialist told her to go the ED for her symptoms. Allergies fentanyl Allergy (Severe, Verified 07/30/20 21:09) Hives butorphanol tartrate [From Stadol] Allergy (Verified 07/30/20 21:09) confusion metoclopramide HCl [From Reglan] Allergy (Verified 07/30/20 21:09) Shortness of breath sulfamethoxazole [From Bactrim] Allergy (Verified 07/30/20 21:09) Hives/Rash trimethoprim [From Bactrim] Allergy (Verified 07/30/20 21:09) Hives/Rash Bactrim DS Allergy (Intermediate, Uncoded 07/30/20 21:09) Nausea/Vomiting Home Medications: Raltegravir Potassium [Isentress] 400 mg PO BID 02/28/12 Lorazepam [Ativan] 2 mg PO BID* 04/02/12 Sertraline [Zoloft*] 200 mg PO DAILY 09/15/12 Esomeprazole Mag Trihydrate [Nexium] 40 mg PO BID 06/18/19 Metoprolol Tartrate 100 mg PO BID #60 tablet 02/03/20 Amlodipine [Norvasc*] 1 tab PO DAILY 07/30/20 Apixaban [Eliquis] 1 tab PO BID 07/30/20 Bupropion HCl [Wellbutrin Xl] 1 tab PO DAILY 07/30/20 Lisinopril [Zestril] 1 tab PO BID 07/30/20 Ipratropium Neb [Atrovent*] 0.5 mg NEB [id number] #60 amp 07/31/20 Albuterol Neb [Proventil 0.083% Neb Soln] 2.5 mg NEB BID 03/05/21 Emtricitabine/Tenofov Alafenam [Descovy 200-25 mg Tablet] 1 tab PO DAILY 03/05/21 Hydralazine HCl 50 mg PO TID 03/05/21 predniSONE [Deltasone*] 10 mg PO BID 03/05/21 Albuterol Inhaler [Ventolin Inhaler*] 2 puff IH Q6H PRN #1 hfa.aer.ad 03/06/21 Multivit with Iron,Minerals [Complete Senior] 1 each PO DAILY #90 tablet 03/06/21 predniSONE [Deltasone] 20 mg PO SEECOM #21 tab 03/06/21 - Past Medical/Surgical History Diabetic: No -: HIV diag ~ [address] Yohan Cardenas in [place] -: CAD -: Bipolar disorder Dr Karuse in [place] -: Hypertension -: COPD -: Tobacco abuse -: former Alcohol abuse -: Anemia likely of chronic disease -: Hyperlipidemia -: GERD with hiatal hernia -: Atrial fibrillation on chronic anticoagulation therapy -: Appendectomy -: Cholecystectomy -: left and right shoulder rotator cuff repair -: Right foot repair -: Right shoulder replacement -: left shoulder rotated cuff -: hiatal hernia repair may 2020 Psychosocial/ Personal History: She lives at home. She is not . - Family History Father -: Heart disease, Kidney disease Mother -: Other (see notes) Notes: Epilepsy, chronic pain - Social History Smoking Status: Unknown if ever smoked Alcohol use: No CD- Drugs: No Caffeine use: Yes Place of Residence: Home Review of Systems 10-point ROS is otherwise unremarkable Respiratory: Cough, Shortness of Breath Cardiovascular: Light Headedness Gastrointestinal: Nausea, Vomiting, Diarrhea Physical Examination - Vital Signs Temperature: 99.0 F Blood Pressure: 135/99 Pulse: 73 Respirations: 20 - Physical Exam General: Alert, In no apparent distress HEENT: Atraumatic, PERRLA, Mucous membr. moist/pink, EOMI, Sclerae nonicteric Neck: Supple, 2+ carotid pulse no bruit, No LAD, Without JVD or thyroid abnormality Respiratory: Normal air movement, Expiratory wheezes Cardiovascular: Regular rate/rhythm, Normal S1 S2 Gastrointestinal: Normal bowel sounds, No tenderness Musculoskeletal: No tenderness Integumentary: No rashes Neurological: Normal speech, Normal strength at 5/5 x4 extr, Normal tone, Normal affect Lymphatics: No axilla or inguinal lymphadenopathy - Studies Laboratory Data (last 24 hrs) 03/13/21 16:53: WBC 10.60 D, Hgb 10.4 L, Hct 33.6 L, Plt Count 251 D 03/13/21 16:53: Sodium 139, Potassium 4.1, BUN 25 H, Creatinine 0.99, Glucose 109 H, Magnesium 2.1, Total Bilirubin 0.5, AST 53 H, ALT 71, Alkaline Phosphatas e 68, Lipase 95 Assessment and Plan - Plan pulm consulted administer breathing treatments, continue steroids, O2 as needed lasix daily UA and procalcitonin pending stool cultures pending hydralazine PRN for BP spikes reconcile and continue home medications DVT ppx Discharge Plan: Home Plan to discharge in: 24 Hours - Advance Directives Does patient have a Living Will: No Does patient have a Durable POA for Healthcare: No - Code Status/Comfort Care Code Status Assessed: Yes (full code ) Critical Care: No Time Spent Managing Pts Care (In Minutes): 70
[2021-03-14] MEDS: METHYLPREDNISOLONE 125 MG INJ IV SCH ×2 (01:53→05:42)
[2021-03-14] MEDS: ACETAMINOPHEN 500 MG TAB PO PRN ×2 (01:54→08:31)
[2021-03-14] MEDS: IPRATROPIUM BROM 0.5MG/2.5ML NEB SCH ×4 (02:10→20:00)
[2021-03-14 05:18] LABS: Urine Appearance CLEAR (Clear); Urine Bilirubin NEGATIVE (Negative); Urine Blood NEGATIVE (Negative); Urine Color YELLOW (Yellow); Urine Glucose NEGATIVE (Negative); Urine Protein NEGATIVE (Negative); Urine Urobilinogen 0.2 mg/dL (0.2-1.0)
[2021-03-14 05:22] LABS: Urine Microscopic Reflex NO UMIC
[2021-03-14 05:59] LABS: Absolute Lymphocytes (CBC) 0.4 K/uL (0.7-4.9); Basophils % 0.1 % (0-1.3); Hematocrit 28.8 % (36.0-45.0); Lymphocytes % 5.9 % (15.3-44.8); MPV 6.9 fL (7.6-11.3); RBC Red Blood Cell Count 4.14 M/uL (3.86-4.86)
[2021-03-14] MEDS ORDERED: CIPROFLOXACIN 400mg IV 400 MG/200 ML BAG IV SCH (06:00)
[2021-03-14 06:33] LABS: Albumin 2.9 g/dL (3.4-5.0); Bilirubin Total 0.4 mg/dL (0.2-1.0); Magnesium 2.3 mg/dL (1.8-2.4); Potassium 3.7 mmol/L (3.5-5.1); Protein, Total 6.4 g/dL (6.4-8.2); Thyroid Stimulating Hormone 0.386 uIU/mL (0.360-3.740)
[2021-03-14] MEDS: APIXABAN 5 MG TABLET PO SCH ×2 (07:42→20:15)
[2021-03-14] MEDS ORDERED: FUROSEMIDE 20 MG/ 2ML VIAL IV SCH (09:00)
[2021-03-14] MEDS: ALBUTEROL 2.5 MG/3 ML NEB SOL NEB PRN ×2 (09:00→14:50)
[2021-03-14] MEDS ORDERED: INFLUENZA VACCINE (for 6+ mo) 0.5 ML DOSE IMVAC ONE (09:00)
[2021-03-14] MEDS ORDERED: PNEUMOCOCCAL VACCINE 0.5 ML IMVAC ONE (09:00)
[2021-03-14] MEDS ORDERED: METRONIDAZOLE 500mg IVPB 500 MG/100 ML BAG IV SCH (09:00)
[2021-03-14] MEDS: FAMOTIDINE 20 MG TAB PO SCH ×2 (10:14→20:15)
[2021-03-14] MEDS: PROMETHAZINE 25 MG TABLET PO PRN (10:14)
--- NOTE | 2021-03-14 11:14 | P.CNS ---
Date of Consult: 03/14/21 Reason for Consult: Nausea vomiting Chief Complaint: dyspnea, N/V/D History of Present Illness: Patient is 66 years of age recurrent hospital admissions for COPD came in with sudden onset nausea and vomiting came over the past 24 hours she is doing better now tolerated breakfast but has some shortness of breath at her baseline denies any fever chills cough Allergies fentanyl Allergy (Severe, Verified 07/30/20 21:09) Hives butorphanol tartrate [From Stadol] Allergy (Verified 07/30/20 21:09) confusion metoclopramide HCl [From Reglan] Allergy (Verified 07/30/20 21:09) Shortness of breath sulfamethoxazole [From Bactrim] Allergy (Verified 07/30/20 21:09) Hives/Rash trimethoprim [From Bactrim] Allergy (Verified 07/30/20 21:09) Hives/Rash Bactrim DS Allergy (Intermediate, Uncoded 07/30/20 21:09) Nausea/Vomiting Home Medications: Raltegravir Potassium [Isentress] 400 mg PO BID 02/28/12 Lorazepam [Ativan] 2 mg PO BID* 04/02/12 Sertraline [Zoloft*] 200 mg PO DAILY 09/15/12 Esomeprazole Mag Trihydrate [Nexium] 40 mg PO BID 06/18/19 Metoprolol Tartrate 100 mg PO BID #60 tablet 02/03/20 Amlodipine [Norvasc*] 1 tab PO DAILY 07/30/20 Apixaban [Eliquis] 1 tab PO BID 07/30/20 Bupropion HCl [Wellbutrin Xl] 1 tab PO DAILY 07/30/20 Lisinopril [Zestril] 1 tab PO BID 07/30/20 Ipratropium Neb [Atrovent*] 0.5 mg NEB [id number] #60 amp 07/31/20 Albuterol Neb [Proventil 0.083% Neb Soln] 2.5 mg NEB BID 03/05/21 Emtricitabine/Tenofov Alafenam [Descovy 200-25 mg Tablet] 1 tab PO DAILY 03/05/21 Hydralazine HCl 50 mg PO TID 03/05/21 predniSONE [Deltasone*] 10 mg PO BID 03/05/21 Albuterol Inhaler [Ventolin Inhaler*] 2 puff IH Q6H PRN #1 hfa.aer.ad 03/06/21 Multivit with Iron,Minerals [Complete Senior] 1 each PO DAILY #90 tablet 03/06/21 predniSONE [Deltasone] 20 mg PO SEECOM #21 tab 03/06/21 - Past Medical/Surgical History Diabetic: No -: HIV diag ~ [address] Yohan Cardenas in [place] -: CAD -: Bipolar disorder Dr Krause in [place] -: Hypertension -: COPD -: Tobacco abuse -: former Alcohol abuse -: Anemia likely of chronic disease -: Hyperlipidemia -: GERD with hiatal hernia -: Atrial fibrillation on chronic anticoagulation therapy -: Appendectomy -: Cholecystectomy -: left and right shoulder rotator cuff repair -: Right foot repair -: Right shoulder replacement -: left shoulder rotated cuff -: hiatal hernia repair may 2020 Psychosocial/ Personal History: She lives at home. She is not . - Family History Father Medical History: Heart disease, Kidney disease Mother Medical History: Other (see notes) Notes: Epilepsy, chronic pain - Social History Smoking Status: Former smoker Alcohol use: No CD- Drugs: No Caffeine use: Yes Place of Residence: Home Review of Systems General: Weakness Respiratory: Shortness of Breath Genitourinary: As per HPI Physical Examination Temp Pulse Resp BP Pulse Ox 96.9 F 64 17 144/77 H 94 03/14/21 08:00 03/14/21 08:00 03/14/21 08:00 03/14/21 08:00 03/14/21 08:00 General: Alert, Oriented x3 Neck: Supple Respiratory: Diminished, Expiratory wheezes Laboratory Data (last 24 hrs) 03/13/21 16:53: WBC 10.60 D, Hgb 10.4 L, Hct 33.6 L, Plt Count 251 D 03/13/21 16:53: Sodium 139, Potassium 4.1, BUN 25 H, Creatinine 0.99, Glucose 109 H, Magnesium 2.1, Total Bilirubin 0.5, AST 53 H, ALT 71, Alkaline Phosphatase 68, Lipase 95 - Problems (1) Nausea & vomiting Current Visit: Yes Status: Acute Plan: Patient is 66 years of age admitted with acute onset of nausea vomiting she is doing better. Over to p.o. promethazine labs reviewed patient has severe microcytosis s patient has severe iron deficiency anemia if patient can tolerate a diet plan to discharge home avoid iron chest x-ray shows COPD changes DC antibiotics plan to discharge home Qualifiers: Vomiting Intractability: unspecified
[2021-03-14] MEDS ORDERED: HYDROCORTISONE SUC 100 MG INJ IV ONE (12:45)
[2021-03-14] MEDS ORDERED: PROMETHAZINE INJ 25 MG/ML AMP IM ONE (12:52)
[2021-03-14] MEDS ORDERED: PROMETHAZINE 25 MG/SUPP PR PRN (12:52)
[2021-03-14] MEDS: LORAZEPAM 1 MG TABLET PO PRN (13:25)
[2021-03-14] MEDS: predniSONE 20 MG TAB PO SCH (20:15)
[2021-03-15] MEDS: IPRATROPIUM BROM 0.5MG/2.5ML NEB SCH ×4 (02:00→19:20)
[2021-03-15] MEDS: LORAZEPAM 1 MG TABLET PO PRN ×2 (02:25→17:18)
[2021-03-15] MEDS: METOPROLOL TAR 25 MG TAB PO SCH ×2 (06:00→17:18)
[2021-03-15] MEDS: APIXABAN 5 MG TABLET PO SCH ×2 (08:03→21:14)
[2021-03-15] MEDS: FAMOTIDINE 20 MG TAB PO SCH ×2 (08:03→21:14)
[2021-03-15] MEDS: predniSONE 20 MG TAB PO SCH ×2 (08:03→21:14)
[2021-03-15] MEDS: PROMETHAZINE 25 MG TABLET PO PRN (09:21)
--- NOTE | 2021-03-15 12:34 | P.PN ---
Subjective Date of Service: 03/15/21 Patient continue with intractable nausea and vomiting. She is requesting Phenergan. She states that IM Phenergan as only thing that helps her. We will continue with giving her oral or per rectum Phenergan at this time. Continue IV hydration. NPO at this time. Review of Systems 10-point ROS is otherwise unremarkable Physical Examination - Vital Signs Temperature: 97 F Blood Pressure: 142/83 Pulse: 75 Respirations: 20 Pulse Ox (%): 98 - Physical Exam General: Alert, In no apparent distress, Obese HEENT: Atraumatic, PERRLA, EOMI Neck: Supple, JVD not distended Respiratory: Clear to auscultation bilaterally, Normal air movement Cardiovascular: Regular rate/rhythm, Normal S1 S2 Gastrointestinal: Normal bowel sounds, Soft and benign, Non-distended, No tenderness Musculoskeletal: No clubbing, No swelling, No tenderness Neurological: Normal strength at 5/5 x4 extr, Sensation intact, Cranial nerves 3-12 intact - Studies Medications List Reviewed: Yes Assessment & Plan - Problems (Diagnosis) (1) Nausea & vomiting Current Visit: Yes Status: Acute Qualifiers: Vomiting Intractability: unspecified (2) Hypokalemia Current Visit: No Status: Active (3) Acute renal injury Onset Date: 06/30/17 Current Visit: No Status: Acute (4) Anemia of chronic disease Current Visit: No Status: Acute (5) Atrial fibrillation Current Visit: No Status: Acute (6) Depressive disorder Onset Date: 05/26/15 Current Visit: No Status: Acute (7) Bipolar disorder Onset Date: 05/26/15 Current Visit: No Status: Chronic Qualifiers: (8) COPD (chronic obstructive pulmonary disease) Onset Date: 05/26/15 Current Visit: No Status: Chronic Qualifiers: (9) HIV positive Onset Date: 10/23/14 Current Visit: No Status: Chronic (10) Hepatitis C Onset Date: 10/06/16 Current Visit: No Status: Chronic Qualifiers: - Plan Plan: 1. Monitor volume status closely as chest x-ray suggestive of pulmonary edema; continue with steroids and nebs 2. Anti emetics 3. Pain control 4. NPO at this time as continues to have vomiting 5. Monitor labs 6. Continue home medications 7. GI and DVT prophylaxis Discharge Plan: Home Plan to discharge in: Greater than 2 days - Advance Directives Does patient have a Living Will: No Does patient have a Durable POA for Healthcare: No - Code Status/Comfort Care Code Status Assessed: Yes Code Status: Full Code Critical Care: No Time Spent Managing PTS Care (In Minutes): 35
[2021-03-15] MEDS ORDERED: PROMETHAZINE INJ 25 MG/ML AMP IM ONE (13:55)
[2021-03-15 16:55] LABS: C.diff Antigen/Toxin Ag neg : Tox neg (NEG : NEG)
[2021-03-15] MEDS: PANTOPRAZOLE 40 MG INJ IVP SCH ×2 (18:57)
[2021-03-15] MEDS ORDERED: MELATONIN 5 MG TABLET PO ONE ×3 (22:45→23:09)
--- NOTE | 2021-03-15 23:58 | P.PN ---
Date of Service: 03/14/21 Subjective Patient complaining of pain and persistent nausea and vomiting. Clinical symptoms continued to worsen. Review of Systems 10-point ROS is otherwise unremarkable Physical Examination - Vital Signs Reviewed - Physical Exam General: Alert, In no apparent distress, Obese HEENT: Atraumatic, PERRLA, EOMI Neck: Supple, JVD not distended Respiratory: Clear to auscultation bilaterally, Normal air movement Cardiovascular: Regular rate/rhythm, Normal S1 S2 Gastrointestinal: Normal bowel sounds, Soft and benign, Non-distended, No tenderness Musculoskeletal: No clubbing, No swelling, No tenderness Neurological: Normal strength at 5/5 x4 extr, Sensation intact, Cranial nerves 3-12 intact - Studies Medications List Reviewed: Yes Assessment & Plan - Problems (Diagnosis) (1) Nausea & vomiting Current Visit: Yes Status: Acute Qualifiers: Vomiting Intractability: unspecified (2) Hypokalemia Current Visit: No Status: Active (3) Acute renal injury Onset Date: 06/30/17 Current Visit: No Status: Acute (4) Anemia of chronic disease Current Visit: No Status: Acute (5) Atrial fibrillation Current Visit: No Status: Acute (6) Depressive disorder Onset Date: 05/26/15 Current Visit: No Status: Acute (7) Bipolar disorder Onset Date: 05/26/15 Current Visit: No Status: Chronic Qualifiers: (8) COPD (chronic obstructive pulmonary disease) Onset Date: 05/26/15 Current Visit: No Status: Chronic Qualifiers: (9) HIV positive Onset Date: 10/23/14 Current Visit: No Status: Chronic (10) Hepatitis C Onset Date: 10/06/16 Current Visit: No Status: Chronic Qualifiers: - Plan Continue plan of care as mentioned below: 1. Monitor volume status closely as chest x-ray suggestive of pulmonary edema; continue with steroids and nebs 2. Anti emetics 3. Pain control 4. NPO at this time as continues to have vomiting 5. Monitor labs 6. Continue home medications 7. GI and DVT prophylaxis Discharge Plan: Home Plan to discharge in: Greater than 2 days - Advance Directives Does patient have a Living Will: No Does patient have a Durable POA for Healthcare: No - Code Status/Comfort Care Code Status Assessed: Yes Code Status: Full Code Critical Care: No Time Spent Managing PTS Care (In Minutes): 35
[2021-03-16] MEDS: IPRATROPIUM BROM 0.5MG/2.5ML NEB SCH ×2 (01:30→07:55)
[2021-03-16] MEDS: METOPROLOL TAR 25 MG TAB PO SCH (06:23)
[2021-03-16 07:11] LABS: Absolute Lymphocytes (CBC) 0.9 K/uL (0.7-4.9); Basophils % 0.1 % (0-1.3); Hematocrit 29.7 % (36.0-45.0); Lymphocytes % 11.8 % (15.3-44.8); RBC Red Blood Cell Count 4.26 M/uL (3.86-4.86)
[2021-03-16 07:12] LABS: Magnesium 2.3 mg/dL (1.8-2.4); Phosphorus 2.7 mg/dL (2.5-4.9); Potassium 3.5 mmol/L (3.5-5.1)
[2021-03-16] MEDS: ALBUTEROL 2.5 MG/3 ML NEB SOL NEB PRN (07:55)
[2021-03-16 08:03] LABS: Blood Morphology Comment NOTED (NOT SEEN); Hypochromasia 1+; Platelet Estimate ADEQ; White Blood Cell Scan OK (OK)
[2021-03-16] MEDS: APIXABAN 5 MG TABLET PO SCH (08:34)
[2021-03-16] MEDS: predniSONE 20 MG TAB PO SCH (08:34)
[2021-03-16] MEDS: PANTOPRAZOLE 40 MG INJ IVP SCH ×3 (08:34→11:35)
--- NOTE | 2021-03-16 08:44 | P.DS ---
Admission Date: 03/15/21 Discharge Date: 03/16/21 Primary Care Provider: Dr. Rahman Disposition: ROUTINE DISCHARGE Discharge Condition: GOOD Reason for Admission: dyspnea, N/V/D Consultations: none Procedures: COVID: Negative Medical Problem List: Nausea and vomiting with acute renal injury and hypokalemia Anemia of chronic disease GERD Atrial fibrillation on chronic anticoagulation therapy Hypertension Bipolar disorder COPD HIV History of hepatitis C Chronic pain Brief History of Present Illness: 66-year-old female with multiple medical problems presented with nausea, vomiting and diarrhea. Patient also reported some shortness of breath. Patient was evaluated in the emergency room. Covid test negative. She was admitted for further evaluation and treatment. Hospital Course: Patient presented with nausea, vomiting. Mild renal sufficiency with hypokalemia noted. Patient was admitted for treatment. Patient received IV fluids with improvement. Patient appears to be back to her baseline. Patient required antiemetic medication. At discharge her diet has been advanced. She is without significant nausea or vomiting. At discharge patient may continue with a GI soft diet and advance as tolerated. A limited supply of Phenergan 12.5 mg 1 pill 3 times a day as needed for nausea will be provided. Patient with underlying history of GERD. At discharge we will continue with Dexilant 1 pill daily. Recommend follow-up with GI as an outpatient to further address. Recommend to follow-up with her PCP within 1 week to follow-up his hospitalization. Patient with underlying COPD. This has remained stable. Patient on room air. At discharge she will continue with her medications including performist 1 unit dose twice daily. Patient will continue with Atrovent/albuterol 2 puffs 3 times a day as needed for shortness of breath. Patient with atrial fibrillation on chronic anticoagulation therapy and hypertension. At discharge the patient will continue with Eliquis 5 mg 1 pill twice daily, metoprolol 100 mg 1 pill twice daily. Recommend follow-up with cardiology as directed. Patient with hypertension. At discharge patient will continue with her medications including Norvasc 2.5 mg 1 pill daily, hydralazine 50 mg 1 pill 3 times a day, lisinopril 40 mg 1 pill twice daily, and metoprolol 100 mg 1 pill twice daily. Recommend to maintain blood pressure less than 130/80. Further adjustment can be done by her PCP. Patient with bipolar disorder. At discharge she will continue with Wellbutrin XL 150 mg daily, Zoloft 200 mg daily, and Ativan 2 mg 1 pill twice daily. Patient should follow-up with her psychiatrist to further address her medicati on. Patient with HIV. At discharge she will continue with her HIV medications. Patient with chronic pain. Patient was evaluated by physical therapy. No intervention was required. At discharge patient may continue with Tylenol as needed for pain. Recommend to establish care with chronic pain management to further address her chronic pain. Vital Signs/Physical Exam: Temp Pulse Resp BP Pulse Ox 96.8 F 75 18 164/105 H 95 03/16/21 08:00 03/16/21 08:00 03/16/21 08:00 03/16/21 08:00 03/16/21 08:00 General: Alert, In no apparent distress, Oriented x3, Cooperative HEENT: Atraumatic Neck: Supple Respiratory: Clear to auscultation bilaterally, Normal air movement Cardiovascular: Normal pulses, Regular rate/rhythm Gastrointestinal: Normal bowel sounds, No ascites, No tenderness, No masses, No rebound, No guarding Musculoskeletal: No erythema, No tenderness, No warmth Integumentary: No tenderness/swelling Neurological: Normal speech, Normal strength at 5/5 x4 extr, Normal tone, Normal affect Laboratory Data at Discharge: WBC 8.10 K/uL (4.3-10.9) D 03/16/21 06:10 Hgb 9.3 g/dL (12.0-15.0) L 03/16/21 06:10 Hct 29.7 % (36.0-45.0) L 03/16/21 06:10 Plt Count 231 K/uL (152-406) 03/16/21 06:10 PT 14.5 SECONDS (9.5-12.5) H 03/14/21 00:05 INR 1.26 03/14/21 00:05 Sodium 143 mmol/L (136-145) 03/16/21 06:10 Potassium 3.5 mmol/L (3.5-5.1) 03/16/21 06:10 BUN 34 mg/dL (7-18) H 03/16/21 06:10 Creatinine 0.92 mg/dL (0.55-1.3) 03/16/21 06:10 Glucose 194 mg/dL (74-106) H 03/16/21 06:10 Phosphorus 2.7 mg/dL (2.5-4.9) 03/16/21 06:10 Magnesium 2.3 mg/dL (1.8-2.4) 03/16/21 06:10 Total Bilirubin 0.4 mg/dL (0.2-1.0) 03/14/21 05:34 AST 41 U/L (15-37) H 03/14/21 05:34 ALT 57 U/L (12-78) 03/14/21 05:34 Alkaline Phosphatase 60 U/L (45-117) 03/14/21 05:34 Triglycerides 123 mg/dL (<150) 03/14/21 05:34 Cholesterol 221 mg/dL (<200) H 03/14/21 05:34 HDL Cholesterol 61 mg/dL (40-60) H 03/14/21 05:34 Cholesterol/HDL Ratio 3.62 03/14/21 05:34 Lipase 95 U/L (73-393) 03/13/21 16:53 Home Medications: Raltegravir Potassium [Isentress] 400 mg PO BID 02/28/12 Lorazepam [Ativan] 2 mg PO BID* 04/02/12 Sertraline [Zoloft*] 200 mg PO DAILY 09/15/12 Metoprolol Tartrate 100 mg PO BID #60 tablet 02/03/20 Amlodipine [Norvasc*] 1 tab PO DAILY 07/30/20 Apixaban [Eliquis] 1 tab PO BID 07/30/20 Bupropion HCl [Wellbutrin Xl] 1 tab PO DAILY 07/30/20 Lisinopril [Zestril] 1 tab PO BID 07/30/20 Ipratropium Neb [Atrovent*] 0.5 mg NEB [id number] #60 amp 07/31/20 Albuterol Neb [Proventil 0.083% Neb Soln] 2.5 mg NEB BID 03/05/21 Emtricitabine/Tenofov Alafenam [Descovy 200-25 mg Tablet] 1 tab PO DAILY 03/05/21 Hydralazine HCl 50 mg PO TID 03/05/21 Albuterol Inhaler [Ventolin Inhaler*] 2 puff IH Q6H PRN #1 hfa.aer.ad 03/06/21 Multivit with Iron,Minerals [Complete Senior] 1 each PO DAILY #90 tablet 03/06/21 Promethazine Tab [Phenergan] 12.5 mg PO Q6HP PRN #5 tab 03/16/21 New Medications: Promethazine Tab [Phenergan] 12.5 mg PO Q6HP PRN #5 tab PRN Reason: Nausea / Vomiting Physician Discharge Instructions: Patient presented with nausea, vomiting. Mild renal sufficiency with hypokalemia noted. Patient was admitted for treatment. Patient received IV fluids with improvement. Patient appears to be back to her baseline. Patient required antiemetic medication. At discharge her diet has been advanced. She is without significant nausea or vomiting. At discharge patient may continue with a GI soft diet and advance as tolerated. A limited supply of Phenergan 12.5 mg 1 pill 3 times a day as needed for nausea will be provided. Patient with underlying history of GERD. At discharge we will continue with Dexilant 1 pill daily. Recommend follow-up with GI as an outpatient to further address. Recommend to follow-up with her PCP within 1 week to follow-up his hospitalization. Patient with underlying COPD. This has remained stable. Patient on room air. At discharge she will continue with her medications including performist 1 unit dose twice daily. Patient will continue with Atrovent/albuterol 2 puffs 3 times a day as needed for shortness of breath. Patient with atrial fibrillation on chronic anticoagulation therapy and hypertension. At discharge the patient will continue with Eliquis 5 mg 1 pill twice daily, metoprolol 100 mg 1 pill twice daily. Recommend follow-up with cardiology as directed. Patient with hypertension. At discharge patient will continue with her medica tions including Norvasc 2.5 mg 1 pill daily, hydralazine 50 mg 1 pill 3 times a day, lisinopril 40 mg 1 pill twice daily, and metoprolol 100 mg 1 pill twice daily. Recommend to maintain blood pressure less than 130/80. Further adjustment can be done by her PCP. Patient with bipolar disorder. At discharge she will continue with Wellbutrin XL 150 mg daily, Zoloft 200 mg daily, and Ativan 2 mg 1 pill twice daily. Patient should follow-up with her psychiatrist to further address her medication. Patient with HIV. At discharge she will continue with her HIV medications. Patient with chronic pain. Patient was evaluated by physical therapy. No intervention was required. At discharge patient may continue with Tylenol as needed for pain. Recommend to establish care with chronic pain management to further address her chronic pain. Diet: GIsoft Activity: Ad pricila Followup: Moody Sosa MD [Primary Care Provider] - Time spent managing pt's care (in minutes): 55
[2021-03-16 08:54] VITALS: O2SAT 98
[2021-03-16 11:40] VITALS: BP 138/72; TEMP 97.3
== END 2021-03-16 10:58 | disposition home or self-care (01) | DRG 684 ==
LOC: ER 13:21 → ERHOLD 22:13 → 4TH 03-14 00:04 → OBSVTOIN 03-15 14:34
PROVIDERS: ADMIT Hospitalist; ATTEND Family Medicine
DX: N17.9 Acute kidney failure, unspecified (principal); E87.6 Hypokalemia; R11.2 Nausea with vomiting, unspecified; D63.8 Anemia in other chronic diseases classified elsewhere; K21.9 Gastro-esophageal reflux disease without esophagitis; I48.91 Unspecified atrial fibrillation; I10 Essential (primary) hypertension; F31.9 Bipolar disorder, unspecified; J44.9 Chronic obstructive pulmonary disease, unspecified; Z21 Asymptomatic human immunodeficiency virus [HIV] infection status; G89.29 Other chronic pain; Z86.19 Personal history of other infectious and parasitic diseases; Z79.01 Long term (current) use of anticoagulants; Z20.822 Contact with and (suspected) exposure to COVID-19; Z23 Encounter for immunization
CPT/HCPCS: 36415; 71046; 80048; 80053; 80061; 80076; 81003; 82274; 83690; 83735; 83880; 84100; 84145; 84439; 84443; 84484; 85025; 85610; 87045; 87046; 87177; 87209; 87324; 87449; 89055; 90471; 90732; 93005; 94640; 94760; 96374; 96375; 99285; C9113; G0378; J0360; J0744; J1720; J1940; J2405; J2550; J2930; J7512; Q0169; U0003

== ENCOUNTER 2021-03-17 07:54 | Emergency (ER) | payer OTHER ==
[2021-03-17] MEDS ORDERED: METHYLPREDNISOLONE 125 MG INJ ONE (08:46)
[2021-03-17] MEDS ORDERED: LEVALBUTEROL 1.25 MG/3 ML NEB ONE (08:46)
[2021-03-17 10:03] LABS: Absolute Lymphocytes (CBC) 1.5 K/uL (0.7-4.9); Basophils % 0.4 % (0-1.3); Hematocrit 31.1 % (36.0-45.0); Lymphocytes % 12.9 % (15.3-44.8); MPV 7.1 fL (7.6-11.3); RBC Red Blood Cell Count 4.51 M/uL (3.86-4.86)
[2021-03-17 10:31] LABS: White Blood Cell Scan OK (OK)
[2021-03-17 10:32] LABS: Anisocytosis 1+; Blood Morphology Comment NOTED (NOT SEEN); Ovalocytes 1+; Platelet Estimate ADEQ
[2021-03-17 10:34] LABS: BUN Blood Urea Nitrogen 33 mg/dL (7-18); Bicarbonate 29 mmol/L (21-32); Glucose Level 91 mg/dL (74-106); NT PRO-BNP 1443 pg/mL (<125); Potassium 3.6 mmol/L (3.5-5.1); Sodium Level 146 mmol/L (136-145); Troponin (Emerg Dept Use Only) < 0.02 ng/mL (0.0-0.045)
--- NOTE | 2021-03-17 10:41 | RAD REPORT ---
EXAM DESCRIPTION: Patrick Single View03/17/2021 10:16 am CLINICAL HISTORY: Shortness of breath COMPARISON: March 13, 2021 FINDINGS: The lungs appear clear of acute infiltrate. The heart is mildly to moderately enlarged IMPRESSION: No acute abnormalities displayed
--- NOTE | 2021-03-17 12:41 | EDPHYS ---
Physician Documentation [facility] Name: Marjan Fleming Age: 66 yrs Sex: Female : 1955 Arrival Date: 03/17/2021 Time: 07:56 Bed 25 Private MD: Lele Rahman H ED Physician Ramon Baker HPI: 03/17 08:04 This 66 yrs old Female presents to ER via Unassigned with complaints of rn Breathing Difficulty. 08:04 The patient has shortness of breath at rest, with light activity. Onset: The rn symptoms/episode began/occurred this morning. Duration: The symptoms are continuous. The patient's shortness of breath is aggravated by exertion, talking, walking, is alleviated by nebulizer treatment. Associated signs and symptoms: Pertinent positives: non-productive cough, Pertinent negatives: fever, hemoptysis, loss of consciousness. Severity of symptoms: At their worst the symptoms were mild in the emergency department the symptoms have improved. The patient has experienced similar episodes in the past. The patient has been recently been admitted at [facility]. Pt just discharged from hospital yesterday, reports didn't feel back to normal but felt better, returns today because woke up and felt like couldn't breathe through nose and heard wheezing. No fever. NO hemoptysis. Not diagnosed with pneumonia while hospitalized. . Historical: - Allergies: 08:06 Bactrim DS; tw5 08:06 butorphanol tartrate; tw5 08:06 Fentanyl; tw5 08:06 metoclopramide HCl; tw5 08:06 Reglan; tw5 08:06 Stadol; tw5 08:06 sulfamethoxazole (bulk); tw5 08:06 TRIMETHOPRIM; tw5 - Home Meds: 08:06 albuterol INH [Active]; Ativan 2 mg Oral tab 1 tab 2 times per day [Active]; BuSpar 10 tw5 mg Oral tab 1 tab 2 times per day [Active]; Descovy 500 mg PO BID Oral [Active]; Eliquis 5 mg Oral tab 1 tab 2 times per day [Active]; hydralazine 50 mg Oral tab 1 tab three times a day [Active]; issentreis 400 mg BID [Active]; lisinopril 40 mg Oral tab 1 tab twice a day [Active]; metoprolol tartrate 100 mg Oral tab 1 tab 2 times per day [Active]; Nexium 40 mg Oral cpDR three times a day [Active]; prednisone 10 mg Oral tab 1 tab 2 times per day [Active]; sertraline 100 mg Oral tab 1 tab twice a day [Active]; Wellbutrin SR 150 mg Oral SR12 1 tab once daily [Active]; - PMHx: 08:06 Anxiety; Atrial Fib; Bipolar disorder; Chronic pain; COPD; esophageal varices; tw5 Hepatitis; HIV; Hypertension; Migraines; Panic Attacks; - PSHx: 08:06 Appendectomy; Bilateral shoulder repair; Cholecystectomy; hernia repair; tw5 - Immunization history:: Client reports receiving the 2nd dose of the Covid vaccine. - Social history:: Smoking status: Patient/guardian denies using tobacco, the patient reports quitting approximately 1 years ago. - Family history:: not pertinent. - Hospitalizations: : The patient was recently seen at [facility]. ROS: 08:31 Constitutional: Negative for fever, chills, and weight loss, Eyes: Negative for injury, rn pain, redness, and discharge, ENT: Negative for injury, pain, and discharge, Neck: Negative for injury, pain, and swelling, Cardiovascular: Negative for chest pain, palpitations, and edema, Respiratory: + for cough and sob, + wheezing Abdomen/GI: Negative for abdominal pain, nausea, vomiting, diarrhea, and constipation, Back: Negative for injury and pain, : Negative for injury, bleeding, discharge, and swelling, MS/Extremity: Negative for injury and deformity, Skin: Negative for injury, rash, and discoloration, Neuro: Negative for headache, weakness, numbness, tingling, and seizure. 08:31 All other systems are negative. Exam: 08:31 Constitutional: This is a well developed, well nourished patient who is awake, alert, rn and in no acute distress. Seems anxious Head/Face: Normocephalic, atraumatic. Eyes: Pupils equal round and reactive to light, extra-ocular motions intact. Lids and lashes normal. Conjunctiva and sclera are non-icteric and not injected. Cornea within normal limits. Periorbital areas with no swelling, redness, or edema. ENT: No stridor Cardiovascular: Regular rate and rhythm. No pulse deficits. Respiratory: + mild tachypnea with faint exp wheezing Abdomen/GI: Soft, non-tender Skin: Warm, dry MS/ Extremity: Pulses equal, no cyanosis. Equal circumference. Neuro: Awake and alert, GCS 15 09:23 ECG was reviewed by the Attending Physician. rn Vital Signs: 08:03 BP 183 / 87; Pulse 73; Resp 16; Temp 98.2; Pulse Ox 99% on R/A; Weight 97.52 kg; Height tw5 5 ft. 4 in. (162.56 cm); Pain 10/10; 09:12 BP 160 / 98; Pulse 63; Resp 22; Temp 99.2; Pulse Ox 98% on R/A; Weight 97.52 kg; Height jw6 5 ft. 4 in. (162.56 cm); Pain 10/10; 10:23 BP 167 / 89; Pulse 67; Resp 20; Pulse Ox 99% on R/A; jw6 09:12 Body Mass Index 36.90 (97.52 kg, 162.56 cm) jw6 MDM: 07:58 Patient medically screened. rn 11:43 Differential diagnosis: Bronchitis CHF exacerbation, Chronic Obstructive Pulmonary rn Disease Myocardial Infarction pneumonia, Pneumothorax pulmonary edema. Data reviewed: vital signs, nurses notes, lab test result(s), EKG, radiologic studies, plain films, and as a result, I will discharge patient. Data interpreted: pvc monitor: rate is 67 beats/min, rhythm is normal sinus rhythm, regular, with no ectopy, Interpretation: normal rate, normal rhythm, Pulse oximetry: on room air is 99 %. Interpretation: normal. Test interpretation: by ED physician or midlevel provider: ECG, plain radiologic studies, Chest x-ray negative for pulmonary edema or pneumonia. Counseling: I had a detailed discussion with the patient and/or guardian regarding: the historical points, exam findings, and any diagnostic results supporting the discharge/admit diagnosis, lab results, radiology results, the need for outpatient follow up, to return to the emergency department if symptoms worsen or persist or if there are any questions or concerns that arise at home. Response to treatment: the patient's symptoms have markedly improved after treatment, and as a result, I will discharge patient. Special discussion: I discussed with the patient/guardian in detail that at this point there is no indication for admission to the hospital. It is understood, however, that if the symptoms persist or worsen the patient needs to return immediately for re-evaluation. ED course: Chest x-ray clear, stable vitals, no oxygen requirement, sitting up and eating and appears and feels better. Had long discussion with patient regarding COPD and prognosis as well as the lack of cure, patient has been under the impression that COPD would go away and was not aware that this was a chronic issue and was going to cause her difficulty on a day-to-day basis, as well as worsening with age. Will follow up with Dr. Sosa. 03/17 08:04 Order name: EKG - Nurse/Tech; Complete Time: 09:12 rn EC:23 Rate is 64 beats/min. Rhythm is regular. QRS [place] is Normal. [place] interval is normal. QRS rn interval is normal. QT interval is normal. No Q waves. T waves are Inverted in lead V3. No ST changes noted. Clinical impression: NSR w/ Non-specific ST/T Changes. Interpreted by me. Reviewed by me. Administered Medications: 08:38 Drug: Xopenex (levalbuterol) (3) 1.25 mg Route: Inhalation; jw6 08:57 Drug: SOLU-Medrol (methylPrednisoLONE) 125 mg {Note: given in R deltoid per MD .} jw6 Route: IVP; Site: Other; 09:12 Follow up: Response: No adverse reaction jw6 Disposition Summary: 03/17/21 11:46 Discharge Ordered Location: Home rn Problem: chronic rn Symptoms: have improved rn Condition: Stable rn Diagnosis - COPD/ Chronic obstructive pulmonary disease, unspecified rn Followup: rn - With: Moody Sosa MD - When: As needed - Reason: Recheck today's complaints, Re-evaluation by your physician Discharge Instructions: - Discharge Summary Sheet rn - Chronic Obstructive Pulmonary Disease rn Forms: - Medication Reconciliation Form rn - Thank You Letter rn - 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 rn
--- NOTE | 2021-03-17 12:42 | ER ---
Nurse's Notes [facility] Name: Marjan Fleming Age: 66 yrs Sex: Female : 1955 Arrival Date: 03/17/2021 Time: 07:56 Bed 25 Private MD: Lele Rahman H Diagnosis: COPD/ Chronic obstructive pulmonary disease, unspecified Presentation: 03/17 08:03 Chief complaint: Patient states: ' I was discharged from the hospital yesterday, I tw5 stayed with my daughter last night so she could keep an eye on me but this morning I felt like I couldn't get any air to move. I took a double dose of my albuterol treatment but it didn't seem to help. Coronavirus screen: Vaccine status: Patient reports receiving the 2nd dose of the covid vaccine. also has the booster shot. Ebola Screen: Patient negative for fever greater than or equal to 101.5 degrees Fahrenheit, and additional compatible Ebola Virus Disease symptoms Patient denies exposure to infectious person. Patient denies travel to an Ebola-affected area in the 21 days before illness onset. Initial Sepsis Screen: Does the patient meet any 2 criteria? RR > 20 per min. Does the patient have a suspected source of infection? No. Patient's initial sepsis screen is negative. Risk Assessment: Do you want to hurt yourself or someone else? Patient reports no desire to harm self or others. Onset of symptoms was March 17, 2021. 08:03 Method Of Arrival: Wheelchair tw5 08:03 Acuity: BLAYNE 2 tw5 Triage Assessment: 08:06 General: Appears uncomfortable, Behavior is calm, cooperative. Pain: Pain currently is tw5 10 out of 10 on a pain scale. Respiratory: Reports shortness of breath at rest Onset: The symptoms/episode began/occurred this morning, the patient has moderate shortness of breath. Historical: - Allergies: 08:06 Bactrim DS; tw5 08:06 butorphanol tartrate; tw5 08:06 Fentanyl; tw5 08:06 metoclopramide HCl; tw5 08:06 Reglan; tw5 08:06 Stadol; tw5 08:06 sulfamethoxazole (bulk); tw5 08:06 TRIMETHOPRIM; tw5 - Home Meds: 08:06 albuterol INH [Active]; Ativan 2 mg Oral tab 1 tab 2 times per day [Active]; BuSpar 10 tw5 mg Oral tab 1 tab 2 times per day [Active]; Descovy 500 mg PO BID Oral [Active]; Eliquis 5 mg Oral tab 1 tab 2 times per day [Active]; hydralazine 50 mg Oral tab 1 tab three times a day [Active]; issentreis 400 mg BID [Active]; lisinopril 40 mg Oral tab 1 tab twice a day [Active]; metoprolol tartrate 100 mg Oral tab 1 tab 2 times per day [Active]; Nexium 40 mg Oral cpDR three times a day [Active]; prednisone 10 mg Oral tab 1 tab 2 times per day [Active]; sertraline 100 mg Oral tab 1 tab twice a day [Active]; Wellbutrin SR 150 mg Oral SR12 1 tab once daily [Active]; - PMHx: 08:06 Anxiety; Atrial Fib; Bipolar disorder; Chronic pain; COPD; esophageal varices; tw5 Hepatitis; HIV; Hypertension; Migraines; Panic Attacks; - PSHx: 08:06 Appendectomy; Bilateral shoulder repair; Cholecystectomy; hernia repair; tw5 - Immunization history:: Client reports receiving the 2nd dose of the Covid vaccine. - Social history:: Smoking status: Patient/guardian denies using tobacco, the patient reports quitting approximately 1 years ago. - Family history:: not pertinent. - Hospitalizations: : The patient was recently seen at [facility]. Screenin:40 Abuse screen: Denies threats or abuse. Denies injuries from another. Nutritional jw6 screening: No deficits noted. Tuberculosis screening: No symptoms or risk factors identified. Fall Risk Gait- Weak (10 pts.). Assessment: 08:40 General: Appears distressed, uncomfortable, obese, Behavior is cooperative. Neuro: No jw6 deficits noted. Cardiovascular: Rhythm is regular. Respiratory: Reports shortness of breath at rest Airway is patent Respiratory effort is labored, Breath sounds are diminished bilaterally. GI: No deficits noted. : No deficits noted. EENT: No deficits noted. Derm: No deficits noted. Musculoskeletal: No deficits noted. Vital Signs: 08:03 BP 183 / 87; Pulse 73; Resp 16; Temp 98.2; Pulse Ox 99% on R/A; Weight 97.52 kg; Height tw5 5 ft. 4 in. (162.56 cm); Pain 10/10; 09:12 BP 160 / 98; Pulse 63; Resp 22; Temp 99.2; Pulse Ox 98% on R/A; Weight 97.52 kg; Height jw6 5 ft. 4 in. (162.56 cm); Pain 10/10; 10:23 BP 167 / 89; Pulse 67; Resp 20; Pulse Ox 99% on R/A; jw6 09:12 Body Mass Index 36.90 (97.52 kg, 162.56 cm) jw6 ED Course: 07:56 Patient arrived in ED. am2 07:56 Lele Rahman DO is Private Physician. am2 07:58 Ramon Baker MD is Attending Physician. rn 08:06 Triage completed. tw5 08:10 Arm band placed on left wrist. Patient placed in an exam room, on pulse oximetry. tw5 08:18 Sharee Vogt is Primary Nurse. jw6 08:40 Patient has correct armband on for positive identification. Call light in reach. Side jw6 rails up X2. 08:40 No provider procedures requiring assistance completed. jw6 11:46 Moody Sosa MD is Referral Physician. rn 12:08 Patient did not have IV access during this emergency room visit. jw6 Administered Medications: 08:38 Drug: Xopenex (levalbuterol) (3) 1.25 mg Route: Inhalation; jw6 08:57 Drug: SOLU-Medrol (methylPrednisoLONE) 125 mg {Note: given in R deltoid per .} jw6 Route: IVP; Site: Other; 09:12 Follow up: Response: No adverse reaction jw6 Outcome: 11:46 Discharge ordered by . rn 12:08 Discharged to home ambulatory. jw6 12:08 Condition: good 12:08 Discharge instructions given to patient left prior to receiving discharge instructions 12:09 Patient left the ED. jw6 Signatures: Ramon Baker MD MD rn Moreno, Amanda am2 Wood, Tiffany tw5 Sharee Vogt jw6 Corrections: (The following items were deleted from the chart) 08:09 08:06 PMHx: Hypertensive disorder; tw5 tw5
[2021-03-17 15:13] VITALS: TEMP 99.2
[2021-03-17 15:15] VITALS: BP 167/89; O2SAT 99
--- NOTE | 2021-03-18 16:10 | EKG ---
Test Date: 2021-03-17 Test Time: 09:06:20 Miner Helper: Ivelisse HOPKINS MEASUREMENT RESULTS: Intervals: Rate: 64 PA: 162 QRSD: 82 QT: 440 QTc: 453 [place]: P: 74 PA: 162 QRS: 10 T: 48 INTERPRETIVE STATEMENTS: Normal sinus rhythm Voltage criteria for left ventricular hypertrophy Nonspecific T wave abnormality Abnormal ECG Compared to ECG 03/13/2021 18:07:59 T-wave abnormality now present Atrial premature complex(es) no longer present ST (T wave) deviation no longer present Electronically Signed On 03-18-21 16:07:20 CDT by Per Crane
== END 2021-03-17 12:09 | disposition home or self-care (01) ==
LOC: ER 07:54
DX: J44.9 Chronic obstructive pulmonary disease, unspecified (principal); I10 Essential (primary) hypertension; Z21 Asymptomatic human immunodeficiency virus [HIV] infection status; Z79.01 Long term (current) use of anticoagulants; Z88.1 Allergy status to other antibiotic agents; Z88.2 Allergy status to sulfonamides; Z88.5 Allergy status to narcotic agent; Z88.8 Allergy status to other drugs, medicaments and biological substances
CPT/HCPCS: 93005; 85025; 80048; 36415; 84484; 84145; 83880; 71045; 96374; 99284; J2930

== ENCOUNTER 2021-03-27 20:23 | Emergency (ER) | payer OTHER ==
[2021-03-27] MEDS ORDERED: METHYLPREDNISOLONE 125 MG INJ ONE (21:21)
[2021-03-27] MEDS ORDERED: LEVALBUTEROL 1.25 MG/3 ML NEB ONE (21:21)
[2021-03-27] MEDS ORDERED: ONDANSETRON 4 MG/2 ML VIAL ONE (21:51)
[2021-03-27] MEDS ORDERED: MORPHINE 2 MG/ML SYR ONE (21:51)
[2021-03-27 21:54] LABS: Absolute Lymphocytes (CBC) 0.6 K/uL (0.7-4.9); Basophils % 0.5 % (0-1.3); Hematocrit 31.5 % (36.0-45.0); Lymphocytes % 6.5 % (15.3-44.8); MPV 7.1 fL (7.6-11.3)
[2021-03-27 21:57] LABS: Protime INR 1.09
[2021-03-27 22:14] LABS: ALT/SGPT 86 U/L (12-78); AST/SGOT 78 U/L (15-37); Albumin 2.9 g/dL (3.4-5.0); Alkaline Phosphatase 61 U/L (45-117); BUN Blood Urea Nitrogen 28 mg/dL (7-18); Bicarbonate 25 mmol/L (21-32); Bilirubin Direct 0.1 mg/dL (0-0.2); Bilirubin Total 0.3 mg/dL (0.2-1.0); Glucose Level 247 mg/dL (74-106); Magnesium 2.3 mg/dL (1.8-2.4); NT PRO-BNP 1214 pg/mL (<125); Potassium 3.5 mmol/L (3.5-5.1); Protein, Total 6.7 g/dL (6.4-8.2); Sodium Level 144 mmol/L (136-145); Troponin (Emerg Dept Use Only) < 0.02 ng/mL (0.0-0.045)
[2021-03-27 22:28] LABS: Anisocytosis 2+; Blood Morphology Comment NOTED (NOT SEEN); Elliptocytes 2+; Hypochromasia 1+; Ovalocytes 1+; Platelet Estimate ADEQ; Poikilocytosis 1+; Polychromasia 1+; Teardrop Cell 1+; White Blood Cell Scan OK (OK)
[2021-03-27 22:29] LABS: Basophilic Stippling 1+
[2021-03-27] MEDS ORDERED: FUROSEMIDE 40 MG/4 ML VIAL ONE ×2 (23:33→23:57)
--- NOTE | 2021-03-28 00:01 | EDPHYS ---
Physician Documentation [facility] Name: Marjan Fleming Age: 66 yrs Sex: Female : 1955 Arrival Date: 03/27/2021 Time: 20:26 Bed 15 Private MD: ED Physician Ramon Baker HPI: 03/27 21:05 This 66 yrs old Female presents to ER via Wheelchair with complaints of cp Breathing Difficulty. 21:05 The patient has shortness of breath at rest. cp 21:05 Onset: The symptoms/episode began/occurred gradually. Duration: The symptoms are cp continuous, and are steadily getting worse. Associated signs and symptoms: Pertinent positives: chest pain, back pain, Pertinent negatives: productive cough, diaphoresis, fever, loss of consciousness. Severity of symptoms: in the emergency department the symptoms are unchanged despite home interventions. Historical: - Allergies: 20:31 Bactrim DS; vg1 20:31 butorphanol tartrate; vg1 20:31 Fentanyl; vg1 20:31 metoclopramide HCl; vg1 20:31 Reglan; vg1 20:31 Stadol; vg1 20:31 sulfamethoxazole (bulk); vg1 20:31 TRIMETHOPRIM; vg1 - Home Meds: 20:31 albuterol INH [Active]; Ativan 2 mg Oral tab 1 tab 2 times per day [Active]; BuSpar 10 vg1 mg Oral tab 1 tab 2 times per day [Active]; Descovy 500 mg PO BID Oral [Active]; Eliquis 5 mg Oral tab 1 tab 2 times per day [Active]; hydralazine 50 mg Oral tab 1 tab three times a day [Active]; issentreis 400 mg BID [Active]; lisinopril 40 mg Oral tab 1 tab twice a day [Active]; metoprolol tartrate 100 mg Oral tab 1 tab 2 times per day [Active]; Nexium 40 mg Oral cpDR three times a day [Active]; prednisone 10 mg Oral tab 1 tab 2 times per day [Active]; sertraline 100 mg Oral tab 1 tab twice a day [Active]; Wellbutrin SR 150 mg Oral SR12 1 tab once daily [Active]; - PMHx: 20:31 Anxiety; Atrial Fib; Bipolar disorder; Chronic pain; COPD; esophageal varices; vg1 Hepatitis; HIV; Hypertension; Migraines; Panic Attacks; - Immunization history:: Adult Immunizations up to date, Client reports receiving the 2nd dose of the Covid vaccine. - Social history:: Smoking status: Patient denies any tobacco usage or history of. ROS: 21:10 Constitutional: Negative for body aches, chills, fever, poor PO intake. cp 21:10 Eyes: Negative for injury, pain, redness, and discharge. cp 21:10 ENT: Negative for ear pain, sore throat, difficulty swallowing, difficulty handling secretions. 21:10 Cardiovascular: Positive for chest pain, Negative for edema, palpitations. 21:10 Respiratory: Positive for shortness of breath, at rest. 21:10 Abdomen/GI: Negative for abdominal pain, nausea, vomiting, and diarrhea. 21:10 Back: Positive for pain at rest, pain with movement. 21:10 : Negative for urinary symptoms. 21:10 Neuro: Negative for altered mental status, headache, syncope, weakness. 21:10 All other systems are negative. Exam: 21:08 ECG was reviewed by the Attending Physician. cp 21:15 Constitutional: The patient appears in no acute distress, alert, awake, cp non-diaphoretic, non-toxic, well developed, well nourished, uncomfortable. 21:15 Head/Face: Normocephalic, atraumatic. cp 21:15 Eyes: Periorbital structures: appear normal, Conjunctiva: normal, no exudate, no injection, Sclera: no appreciated abnormality, Lids and lashes: appear normal, bilaterally. 21:15 ENT: External ear(s): are unremarkable, Nose: is normal, Mouth: Lips: moist, Oral mucosa: pink and intact, moist, Posterior pharynx: Airway: no evidence of obstruction, patent. 21:15 Neck: ROM/movement: is normal, is supple, without pain, no range of motions limitations, no nuchal rigidity. 21:15 Chest/axilla: Inspection: normal. 21:15 Cardiovascular: Rate: normal, Rhythm: regular, Edema: is not appreciated, JVD: is not appreciated. 21:15 Respiratory: the patient does not display signs of respiratory distress, Respirations: normal, no use of accessory muscles, no retractions, labored breathing, is not present, Breath sounds: decreased breath sounds, that are mild, diffuse, stridor, is not appreciated, wheezing: that is mild, is heard diffusely. 21:15 Abdomen/GI: Inspection: abdomen appears normal, Palpation: abdomen is soft and non-tender, in all quadrants. 21:15 Back: pain, that is moderate, ROM is painful, with all movement. 21:15 Neuro: Orientation: to person, place \T\ time. Mentation: is normal, Motor: moves all fours, strength is normal, Sensation: is normal. Vital Signs: 20:29 BP 107 / 66; Pulse 84; Resp 26; Temp 97.2; Pulse Ox 97% on R/A; Weight 97.52 kg; Height vg1 5 ft. 4 in. (162.56 cm); Pain 10/10; 21:30 BP 127 / 73; Pulse 68; Resp 18; Pulse Ox 100% ; Pain 5/10; dc2 22:00 BP 130 / 84; Pulse 73; Resp 18; Pulse Ox 90% ; Pain 8/10; dc2 23:00 BP 110 / 86; Pulse 77; Resp 18; Pulse Ox 91% on R/A; Pain 4/10; dc2 03/28 00:00 BP 163 / 99; Pulse 79; Resp 18; Pulse Ox 96% on 2 lpm NC; Pain 8/10; dc2 03/27 20:29 Body Mass Index 36.90 (97.52 kg, 162.56 cm) vg1 MDM: 03/27 20:48 Patient medically screened. cp 03/28 00:00 Data reviewed: vital signs, nurses notes, lab test result(s), EKG, radiologic studies, cp plain films. 00:00 Test interpretation: by ED physician or midlevel provider: ECG, chest xray negative for cp infiltrates. Counseling: I had a detailed discussion with the patient and/or guardian regarding: the historical points, exam findings, and any diagnostic results supporting the discharge/admit diagnosis, lab results, radiology results, to return to the emergency department if symptoms worsen or persist or if there are any questions or concerns that arise at home. Response to treatment: the patient's symptoms have markedly improved after treatment, Patient reports shortness of breath and pain markedly improved. Patient appears comfortable in exam room. Patient seen in this ED on multiple occasions with similar complaints of shortness of breath and chest pain. Low suspicion for cardiac cause of chest pain. Will discharge to home for continued monitoring. 03/27 20:50 Order name: Basic Metabolic Panel; Complete Time: 22:31 cp 03/27 22:32 Interpretation: Normal except: CL 108; GLUC 247; BUN 28; GFR 52. cp 03/27 20:50 Order name: CBC with Diff; Complete Time: 22:31 cp 03/27 22:07 Interpretation: Normal except: HGB 9.3; HCT 31.5; MCV 71.5; MCH 21.1; MCHC 29.4; RDW cp 19.6; MPV 7.1; ADE% 90.3; LYM% 6.5; MN% 2.7; NEUT A 8.5; LYMA 0.6. 03/27 20:50 Order name: LFT's; Complete Time: 22:31 cp 03/27 20:50 Order name: Magnesium; Complete Time: 22:31 cp 03/27 20:50 Order name: NT PRO-BNP; Complete Time: 22:31 cp 03/27 20:50 Order name: PT-INR; Complete Time: 22:05 cp 03/27 20:50 Order name: Troponin (emerg Dept Use Only); Complete Time: 22:31 cp 03/27 20:50 Order name: XRAY Chest (1 view) cp 03/27 22:03 Order name: CBC Smear Scan; Complete Time: 22:31 EDMS 03/27 20:50 Order name: EKG; Complete Time: 20:51 03/27 20:50 Order name: Cardiac monitoring; Complete Time: 21:19 cp 03/27 20:50 Order name: EKG - Nurse/Tech; Complete Time: 21:19 cp 03/27 20:50 Order name: IV Saline Lock 03/27 20:50 Order name: Labs collected and sent 03/27 20:50 Order name: O2 Per Protocol; Complete Time: 21:19 cp 03/27 20:50 Order name: O2 Sat Monitoring; Complete Time: 21:19 cp EC/05 21:08 Rate is 72 beats/min. Rhythm is regular. NH interval is normal. QRS interval is normal. cp QT interval is normal. T waves are Inverted in lead aVR. Interpreted by me. Reviewed by me. Administered Medications: 20:50 CANCELLED (Physician Discretion): HYDROcodone-acetaminophen 10 mg-325 mg 1 tabs PO cp once; RASS on ADMIN: Combtv4, Very Agttd3, Agttd2, Rstlss1, AlertClm0, Drwsy-1, Lt Sdtn-2, Mod Sdtn-3, Dp Sdtn-4, UnArsble-5 21:15 Drug: Xopenex (levalbuterol) (3) 1.25 mg Route: Inhalation; dc2 21:45 Drug: SOLU-Medrol (methylPrednisoLONE) 125 mg Route: IVP; Site: Other; dc2 21:49 Follow up: Response: No adverse reaction dc2 21:50 Drug: Zofran (Ondansetron) 4 mg Route: IVP; Site: Other; dc2 22:40 Follow up: Response: Pain is decreased dc2 22:40 Follow up: Response: Nausea is decreased dc2 21:55 Drug: morphine 2 mg Route: IVP; Site: Other; dc2 03/28 00:10 Follow up: Urine output 2300 ml dc2 03/27 23:27 Drug: Lasix (furosemide) 40 mg Route: IVP; Site: Other; dc2 03/28 00:11 Follow up: Response: Medication administered at discharge. dc2 Disposition: 00:18 Co-signature as Attending Physician, Ramon Baker MD. rn 00:18 I agree with the assessment and plan of care. Attestation: The patient's history, exam rn findings, diagnostics, and a summary of any interventions or procedures was reviewed in detail with Justus DHILLON. Disposition Summary: 03/28/21 00:00 Discharge Ordered Location: Home cp Problem: an acute exacerbation cp Symptoms: have improved cp Condition: Stable cp Diagnosis - COPD/ Chronic obstructive pulmonary disease with (acute) exacerbation cp Followup: cp - With: Private Physician - When: 2 - 3 days - Reason: Recheck today's complaints Discharge Instructions: - Discharge Summary Sheet cp - Chronic Obstructive Pulmonary Disease Exacerbation cp Forms: - Medication Reconciliation Form cp - Thank You Letter cp - Antibiotic Education cp - Prescription Opioid Use cp Prescriptions: - Medrol (Niall) 4 mg Oral Tablets, Dose Pack - take 1 tablet by ORAL route as directed - follow package instructions; 1 cp packet; Refills: 0, Product Selection Permitted - ipratropium-albuterol 0.5 mg-3 mg(2.5 mg base)/3 mL Inhalation solution for nebulization - inhale 3 milliliter by NEBULIZATION route 4 times per day; 1 box; Refills: 0, cp Product Selection Permitted Signatures: Dispatcher [employer] EDRamon Harrison MD MD rn Page, Corey, PA PA cp Garcia, Victoria RN RN vg1 Azul Andre RN RN dc2 Corrections: (The following items were deleted from the chart) 03/27 20:50 20:50 HYDROcodone-acetaminophen 10 mg-325 mg 1 tabs PO once; RASS on ADMIN: Combtv4, cp Very Agttd3, Agttd2, Rstlss1, AlertClm0, Drwsy-1, Lt Sdtn-2, Mod Sdtn-3, Dp Sdtn-4, UnArsble-5 ordered. cp
--- NOTE | 2021-03-28 00:01 | ER ---
Nurse's Notes [facility] Name: Marjan Fleming Age: 66 yrs Sex: Female : 1955 Arrival Date: 03/27/2021 Time: 20:26 Bed 15 Private MD: Diagnosis: COPD/ Chronic obstructive pulmonary disease with (acute) exacerbation Presentation: 03/27 20:29 Chief complaint: Patient states: States has back pain everyday but today lower back vg1 pain became worse to where had to sit down while washing dishes. Pt also states is having chest pain. Denies vomiting/diarrhea, but states nausea. Pt states us oxygen at home, 2L NC. Coronavirus screen: Vaccine status: Patient reports receiving the 2nd dose of the covid vaccine. Client denies travel out of the [place] in the last 14 days. Ebola Screen: Patient negative for fever greater than or equal to 101.5 degrees Fahrenheit, and additional compatible Ebola Virus Disease symptoms. Initial Sepsis Screen: Does the patient meet any 2 criteria? RR > 20 per min. Does the patient have a suspected source of infection? No. Patient's initial sepsis screen is negative. Risk Assessment: Do you want to hurt yourself or someone else? Patient reports no desire to harm self or others. Onset of symptoms was March 27, 2021. 20:29 Method Of Arrival: Wheelchair vg1 20:29 Acuity: BLAYNE 3 vg1 Triage Assessment: 20:31 General: Appears in no apparent distress. uncomfortable, Behavior is calm, cooperative. vg1 Pain: Complains of pain in mid-sternal area and lower back. Respiratory: Reports shortness of breath at rest on exertion Airway is patent Respiratory effort is even, labored, Respiratory pattern is tachypnea Onset: The symptoms/episode began/occurred today, the patient has moderate shortness of breath. Historical: - Allergies: 20:31 Bactrim DS; vg1 20:31 butorphanol tartrate; vg1 20:31 Fentanyl; vg1 20:31 metoclopramide HCl; vg1 20:31 Reglan; vg1 20:31 Stadol; vg1 20:31 sulfamethoxazole (bulk); vg1 20:31 TRIMETHOPRIM; vg1 - Home Meds: 20:31 albuterol INH [Active]; Ativan 2 mg Oral tab 1 tab 2 times per day [Active]; BuSpar 10 vg1 mg Oral tab 1 tab 2 times per day [Active]; Descovy 500 mg PO BID Oral [Active]; Eliquis 5 mg Oral tab 1 tab 2 times per day [Active]; hydralazine 50 mg Oral tab 1 tab three times a day [Active]; issentreis 400 mg BID [Active]; lisinopril 40 mg Oral tab 1 tab twice a day [Active]; metoprolol tartrate 100 mg Oral tab 1 tab 2 times per day [Active]; Nexium 40 mg Oral cpDR three times a day [Active]; prednisone 10 mg Oral tab 1 tab 2 times per day [Active]; sertraline 100 mg Oral tab 1 tab twice a day [Active]; Wellbutrin SR 150 mg Oral SR12 1 tab once daily [Active]; - PMHx: 20:31 Anxiety; Atrial Fib; Bipolar disorder; Chronic pain; COPD; esophageal varices; vg1 Hepatitis; HIV; Hypertension; Migraines; Panic Attacks; - Immunization history:: Adult Immunizations up to date, Client reports receiving the 2nd dose of the Covid vaccine. - Social history:: Smoking status: Patient denies any tobacco usage or history of. Screenin:30 Abuse screen: Denies threats or abuse. Denies injuries from another. Nutritional dc2 screening: No deficits noted. Tuberculosis screening: No symptoms or risk factors identified. Never had TB. Fall Risk None identified. No fall in past 12 months (0 pts). Secondary diagnosis (15 points) No IV (0 pts). Ambulatory Aid- Crutches/Cane/Walker (15 pts). Gait- Weak (10 pts.). Mental Status- Oriented to own ability (0 pts). Total Hauser Fall Scale indicates No Risk (0-24 pts). Assessment: 20:45 General: Appears uncomfortable, obese, unkempt, Behavior is calm, cooperative. dc2 20:45 Pain: Complains of pain in lower back, denies trauma , injury. Neuro: No deficits dc2 noted. Level of Consciousness is awake, alert, obeys commands, Oriented to person, place, time, situation. Respiratory: Airway is patent Breath sounds with wheezes bilaterally. GI: No deficits noted. No signs and/or symptoms were reported involving the gastrointestinal system. Abdomen is non-distended, Bowel sounds. : No signs and/or symptoms were reported regarding the genitourinary system. Derm: Skin is fragile, is thin, with poor turgor has skin tears on Right wrist and left elbow, placed nonadherent gauze over sites. Some bleeding controlled. Musculoskeletal: Reports weakness in bilateral legs, states has been going on for months but today has worsened. No periods of incontinence. pain in lower back Pain is 8 out of 10 on a pain scale. 21:15 Reassessment: Attempting IV / bloodwork . Pt arms with mutiple bruising and skin tears. dc2 Pt is on eliquis and multiple falls because of legs being weak. 23:39 Reassessment: While giving lasix, noticed swelling at site. IV discontinued and will dc2 obtain new IV. Will draw up 40 ml lasix again for administration. 03/28 00:01 Reassessment: New IV obtained, Lasix 40mg given at this time. dc2 00:07 Cardiovascular: Rhythm is sinus rhythm. dc2 Vital Signs: 03/27 20:29 BP 107 / 66; Pulse 84; Resp 26; Temp 97.2; Pulse Ox 97% on R/A; Weight 97.52 kg; Height vg1 5 ft. 4 in. (162.56 cm); Pain 10/10; 21:30 BP 127 / 73; Pulse 68; Resp 18; Pulse Ox 100% ; Pain 5/10; dc2 22:00 BP 130 / 84; Pulse 73; Resp 18; Pulse Ox 90% ; Pain 8/10; dc2 23:00 BP 110 / 86; Pulse 77; Resp 18; Pulse Ox 91% on R/A; Pain 4/10; dc2 03/28 00:00 BP 163 / 99; Pulse 79; Resp 18; Pulse Ox 96% on 2 lpm NC; Pain 8/10; dc2 03/27 20:29 Body Mass Index 36.90 (97.52 kg, 162.56 cm) vg1 ED Course: 03/27 20:26 Patient arrived in ED. wm 20:31 Triage completed. vg1 20:31 Arm band placed on. vg1 20:45 Justus Neil PA is PHCP. cp 20:45 Ramon Baker MD is Attending Physician. cp 20:45 Patient has correct armband on for positive identification. Placed in gown. Bed in low dc2 position. Call light in reach. Side rails up X 1. 21:06 X-ray(s) taken. dc2 21:10 XRAY Chest (1 view) In Process Unspecified. EDMS 21:17 Azul Andre, RN is Primary Nurse. dc2 03/28 00:07 No provider procedures requiring assistance completed. dc2 00:07 IV discontinued, intact, bleeding controlled, No redness/swelling at site. Pressure dc2 dressing applied. Administered Medications: 03/27 20:50 CANCELLED (Physician Discretion): HYDROcodone-acetaminophen 10 mg-325 mg 1 tabs PO cp once; RASS on ADMIN: Combtv4, Very Agttd3, Agttd2, Rstlss1, AlertClm0, Drwsy-1, Lt Sdtn-2, Mod Sdtn-3, Dp Sdtn-4, UnArsble-5 21:15 Drug: Xopenex (levalbuterol) (3) 1.25 mg Route: Inhalation; dc2 21:45 Drug: SOLU-Medrol (methylPrednisoLONE) 125 mg Route: IVP; Site: Other; dc2 21:49 Follow up: Response: No adverse reaction dc2 21:50 Drug: Zofran (Ondansetron) 4 mg Route: IVP; Site: Other; dc2 22:40 Follow up: Response: Pain is decreased dc2 22:40 Follow up: Response: Nausea is decreased dc2 21:55 Drug: morphine 2 mg Route: IVP; Site: Other; dc2 03/28 00:10 Follow up: Urine output 2300 ml dc2 03/27 23:27 Drug: Lasix (furosemide) 40 mg Route: IVP; Site: Other; dc2 03/28 00:11 Follow up: Response: Medication administered at discharge. dc2 Output: 00:10 Urine: 2300ml; Total: 2300ml. dc2 Outcome: 00:00 Discharge ordered by . cp 00:07 Discharged to home ambulatory, via wheelchair. dc2 00:07 Condition: stable 00:07 Discharge instructions given to patient, Instructed on discharge instructions, follow up and referral plans. Demonstrated understanding of instructions, follow-up care. 00:11 Patient left the ED. dc2 Signatures: Dispatcher [employer] EDPA Justus Neil PA PA cp Garcia, Victoria RN RN vg1 Nieves Isaacs Azul Andre RN RN dc2 Corrections: (The following items were deleted from the chart) 03/27 20:34 20:29 Chief complaint: Patient states: States has back pain everyday but today lower vg1 back pain became worse to where had to sit down while washing dishes. Pt also states is having chest pain. Denies vomiting/diarrhea, but states nausea. vg1
[2021-03-28] MEDS ORDERED: HYDROCODONE/APAP 5/325 MG TAB ONE (00:19)
[2021-03-28 00:35] VITALS: TEMP 97.2
[2021-03-28 00:36] VITALS: BP 130/84; O2SAT 90
--- NOTE | 2021-03-28 08:40 | RAD REPORT ---
EXAM DESCRIPTION: RAD - Chest Single View - 03/27/2021 11:28 pm CLINICAL HISTORY: SOB COMPARISON: Chest Single View dated 03/17/2021; Chest Pa And Lat (2 Views) dated 03/13/2021; Chest S anthony View dated 03/05/2021; Chest Single View dated 02/03/2021 FINDINGS: Lines: None. Lungs: No evidence of edema or pneumonia. Pleural: No significant pleural effusions or pneumothorax. Cardiac: Mild cardiomegaly. Bones: No acute fractures. Bilateral shoulder arthroplasties. Other: IMPRESSION: No acute cardiopulmonary disease.
--- NOTE | 2021-03-30 18:31 | EKG ---
Test Date: 2021-03-27 Test Time: 20:59:35 Wearing Apparel Assembler: ELENA MEASUREMENT RESULTS: Intervals: Rate: 72 RI: 198 QRSD: 80 QT: 418 QTc: 457 [place]: P: 31 RI: 198 QRS: 7 T: 49 INTERPRETIVE STATEMENTS: Sinus rhythm with premature supraventricular complexes Left ventricular hypertrophy with repolarization abnormality Abnormal ECG Compared to ECG 03/17/2021 09:06:20 Atrial premature complex(es) now present Early repolarization now present T-wave abnormality no longer present Electronically Signed On 03-30-21 18:24:21 BRIEFCASE SEWER by Per Crane
--- OUTSIDE RECORDS SUMMARY | 2021-04-04 13:43 | XMS REPORT | Continuity of Care Document ---
:1955 Author Organization [facility] t Address [address] [place] [address] Care Team Providers Name Role Phone MURPHY Primary Care Physician Unavailable HEMATPOUR Attending Clinician Unavailable SELF Attending Clinician Unavailable Ronald DHILLON Attending Clinician Prabhu SANCHEZ Attending Clinician Unavailable Shelia JENKINS, H Attending Clinician Tiny SALGUERO Attending Clinician Lab, Fam Pob I Attending Clinician Unavailable Doctor Unassigned, Name Attending Clinician Unavailable Carol Ann IZQUIERDO M. Attending Clinician Yazmin JENKINS Attending Clinician [facility] Attending Clinician Unavailable Devin SALGUERO R Attending Clinician Clark SANCHEZ Attending Clinician Unavailable Diana SANCHEZ Attending Clinician Unavailable Andrez RAMIREZ Attending Clinician Unavailable Curt Mitchell MD Attending Clinician Remigio JENKINS V. 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 Added automatic ally from request for surgery [id number] Dysphagia Dysphagia Disease Active Overview: Methodi 4-[address] 00:00: g of this [facility]osp[facility] 00 note l might be different from the original. Added automatic ally from request for surgery [id number] CCL / EPS Diagnosis Active 2020-10-15 Memoria PVI 3-30 17:07:00 l ABLATION CCL / 00:00: [place] W/ CARTO / EPS PVI 00 GA / T ABLATION W/ CARTO / GA / T Active 08/19/2020 [facility] Food Food Disease Active 2019-05 Methodi intoleranc intoleranc 2-04 st e in adult e in adult 00:00: Ho spita 00 l S/p S/p Disease Active Methodi reverse reverse [address] st 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:00: Hospita shoulder shoulder 00 l arthroplas arthroplas ty ty Unstable Unstable Disease Active Metho di reverse reverse [address] st 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:00: Hospita shoulder shoulder 00 l arthroplas arthroplas ty ty Obesity Obesity Disease Active 2015-05 Univers (BMI (BMI 2-19 ity of 30-39.9) 30-39.9) 00:00: Medical Branch Anemia Anemia Disease Active 2014-05 Univers 0-03 ity of 00:00: Medical Branch Hypovolemi Hypovolemi Disease Active 2014-05 [...] of ciency ciency 00:00: [place] virus virus 00 Medical (HIV) (HIV) Branch disease disease Bipolar 2 Bipolar 2 Disease Active Uni vers disorder disorder 11-18 ity of 00:00: Medical Branch Chronic Chronic Disease Active Univers hepatitis hepatitis 11-18 ity of C C 00:00: [place] [facility] Hypertensi Hypertensi Disease Active U nivers on on 11-18 ity of 00:00: Medical Branch Allergies, Adverse Reactions, Alerts Allergy Allergy Status Severity Reaction(s) Onset Inactive Treating Comm ents Source Name Type Date Date Clinician Metoclop Propensi Active UT ramide ty to 12-12 Health adverse 00:00: reaction 00 s BUTORPHA DRUG Active Unknown-Cmnt Un matt NOL INGREDI 11-25 ity of 00:00: Medical Branch Butorpha Drug Active Unknown - Unive rs nol Allergy See comments 11-25 ity of 00:00: Medical Branch Sulfamet Propensi Active UT hoxazole ty to 6 Health -Trimeth adverse 00:00: oprim reaction 00 s Fentanyl Propensi Active Other (See Unknown M ethodi ty to Comments) 4-[address] adverse 00:00: Hospita reaction 00 l s to drug Sulfamet Propensi Active Other (See 2019-05 Stomach M ethodi hoxazole ty to Comments) 2-[address] -Trimeth adverse 00:00: Hospita oprim reaction 00 l s to drug Butorpha Propensi Active Hallucinatio 2019-05 Methodi nol ty to ns [address] st adverse 00:00: Hospita reaction 00 l s to drug FENTANYL DRUG Active High Hives 2017- Univers INGREDI 2-08 ity of 00:00: [place] 00 Medical Branch TRIMETHO DRUG Active Hives 2017- Univers PRIM INGREDI 08 ity of 00:00: [place] [facility] Fentanyl Drug Active Other - See Unknown Un matt Allergy comments 06-30 reaction ity o f 00:00: [place] 00 Medical Branch Trimetho Propensi Active Hives Univer s prim ty to 06-30 ity of adverse 00:00: [place] reaction 00 Medical s Branch Fentanyl Allergy Active Unknown Other UT to 06-30 reaction( Health substanc 00:00: s): e 00 HivesUnkn own reactionU nknown reactionU nknown reactionU nknown reactionU nknown reaction Metoclop Propensi Active Method i ramide ty to 09-23 st Hcl adverse 00:00: Hospita reaction 00 l s to drug METOCLOP DRUG Active Unknown-Cmnt Un matt RAMIDE INGREDI 1 ity of 00:00: [place] 00 Medical Branch Metoclop Propensi Active Unknown - Uni vers ramide ty to See comments 05-28 ity of adverse 00:00: [place] reaction 00 Medical s Branch SULFAMET DRUG Active High Unknown-Cmnt 2015-05 Un matt HOXAZOLE INGREDI 06-24 ity of 00:00: [place] 00 Medical Branch Sulfamet Propensi Active Other - See 2015-05 Stomach Univers hoxazole ty to comments 06-24 pain ity of adverse 00:00: [place] reaction 00 Medical s Branch Sulfamet Propensi Active Rash 2015-05 Method i hoxazole ty to 06-24 st adverse 00:00: Hospita reaction 00 l s to drug METOCLOP DRUG Active Anxiety Univers RAMIDE INGREDI 9-25 ity of HCL 00:00: [place] 00 Medical Branch Metoclop Propensi Active Anxiety Unive rs ramide ty to 9-25 ity of Hcl adverse 00:00: [place] reaction 00 Medical s Branch BUTORPHA DRUG Active High Hallucinates Un matt NOL INGREDI 2-14 ity of TARTRATE 00:00: [place] 00 Medical Branch Butorpha Propensi Active Hallucinatio Univers nol ty to ns 2-14 ity of Tartrate adverse 00:00: [place] reaction 00 Medical s to Branch drug Butorpha Allergy Active Hallucinatio Other U T nol to ns 2-14 reaction( Health substanc 00:00: s): e 00 confusion , Hallucina tions, Hallucina tions, Hallucina tions, Unknown - See comments Bactrim Bactrim Active Get [place] Family History Family Member Diagnosis Comments Start Date Stop Date Source Natural father Diabetes [facility] Natural father Other - see comments [facility] Natural father Coronary Heart [facility] Natural mother Cancer [facility] Social History Social Habit Start Date Stop Date Quantity Comments Source [facility] Alcohol Std Drinks History [facility] Health Alcohol Binge Exposure to Not sure [facility] SARS-CoV-2 (event) History of tobacco Smoker [facility] use Hospital Cigarettes smoked 2020-12-08 2020-12-[address] current (pack per 00:00:00 00:00:00 Hospita l day) - Reported Cigarette 2020-12-08 2020-12-08 [facility] pack-[facility] 00:00:00 00:00:00 Hospital Tobacco use and 2020-10-31 2020-10-31 Never used [facility] exposure 00:00:00 00:00:00 Alcohol intake 2020-10-31 2020-10-31 Ex-drinker [facility] 00:00:00 00:00:00 (finding) History SDOH 2020-10-31 2020-10-31 1 [facility] Alcohol Frequency 00:00:00 00:00:00 Alcohol Comment 2016-09-23 2016-09-23 rare [facility] 00:00:00 00:00:00 Hospital Tobacco Comment 2015-02-14 2015-02-14 Smokes approx 1-2 Un iversity of 00:00:00 00:00:00 cigarettes per [place] [facility] day when she Branch smokes Sex [birth year] [facility] 00:00:00 00:00:00 Smoking Status Start Date Stop Date Source Former smoker 2020-10-31 00:00:00 2020-10-31 00:00:00 [facility] if [facility] smoked [facility] Medications Ordered Filled Start Stop Current Ordering Indication Dosage Frequency Signature Comments Components Source Medication Medication Date Date Medication? Clinician (SIG) Name Name LORazepam 2 2020-05 Yes [id number] 2mg Take 1 Univers mg tablet 1-03 tablet by ity o f 00:00: mouth 2 [place] 00 (two) Medical times Branch daily as needed (anxiety). raltegravir Yes [id number] 400mg Take 1 Univers (ISENTRESS) 9-24 tablet by ity of 400 mg 00:00: mouth 2 [place] tablet 00 (two) Medical times Branch daily. buPROPion Yes [id number] 150mg Take 1 U nivers XL 9-08 tablet by ity of (WELLBUTRIN 00:00: mouth [place] XL) 150 mg 00 daily. Medical 24 hr Branch tablet SERTraline Yes [id number] 200mg Take 2 Univers 100 mg 9-08 tablets by ity of tablet 00:00: mouth [place] 00 daily. Medical Branch busPIRone Yes [id number] 30mg Take 1 Un matt 30 mg 8-30 tablet by ity of tablet 00:00: mouth 2 [place] 00 (two) Medical times Branch daily. LORazepam 2 2020- No [id number] 2mg Take 1 Univers mg tablet 8-30 11-03 tablet by ity of 00:00: 00:00 mouth 2 [place] 00 :00 (two) Medical times Branch daily as needed (anxiety). metoprolol 2021- No [id number] Take 1 UT tartrate 7-26 01-23 tablet Health (Lopressor) 00:00: 05:59 (100 mg 100 MG 00 :00 total) by tablet mouth 2 (two) times a day AND 0.5 tablets (50 mg total) every night. raltegravir 2020-0 Yes 400mg Q.5D Take 400 U T (Isentress) 7-23 mg by Health 400 MG 13:03: mouth 2 tablet 05 (two) times a day. raltegravir 202-0 Yes 400mg Q.5D Take 400 U T (Isentress) 7-23 mg by Health 400 MG 13:03: mouth 2 tablet 05 (two) times a day. lisinopril 2020-0 Yes 40mg Q.5D Take 40 mg M ethodi (PRINIVIL,Z 7-[address] ESTRIL) 40 15:51: (two) Hospit a mg tablet 25 times a l day. metoprolol 2020-0 Yes 100mg Q.5D Take 100 Me thodi [...] spita 25 needed for l anxiety. sertraline 0 Yes 200mg QD Take 200 Me thodi (ZOLOFT) 7-[address] 100 MG 15:51: mouth Hospita tablet 25 daily. l clobetasol 2020-0 Yes 1{appli Q.5D Apply 1 M ethodi (TEMOVATE) 7-19 cation} applicatio st 0.05 % 15:51: n Hospita ointment 25 topically l 2 (two) times a day. (affected area in groin) hydrALAZINE 2020-0 Yes 50mg Q.[id number] Take 50 mg Methodi (APRESOLINE 7-19 [id number] by mouth 3 st ) 50 MG 15:51: 3D (three) Hospita tablet 25 times a l day. busPIRone 2020-0 Yes 20mg QD Take 20 mg Me [...] Hospita tablet 25 daily. l nystatin-tr Yes [id number] Apply to [facility] [place] iamcinolone 11-25 area(s) 3 ity of cream 00:00: (three) [place] 00 times Medical daily. Branch emtricitabi Yes [id number] Take one [facility] [place] ne-tenofovi 11-25 po daily ity of r alafen 00:00: [place] (DESCOVY) 00 Medical tablet Branch budesonide- 2020- No 1{puff} QD Inhale 1 Methodi formoteroL 6-25 06-[address] (SYMBICORT) 19:37: 00:00 morning. H ospita 160-4.5 02 :00 l mcg/actuati on inhaler hydrALAZINE 2020- No [id number] 50mg Q.[id number] Take 1 UT (Apresoline 6-11 09-10 [id number] tablet (50 Health ) 50 MG 00:00: 04:59 3D mg total) tablet 00 :00 by mouth 3 (three) times a day. hydrALAZINE 2020- No [id number] 50mg Q.[id number] Take 1 UT (Apresoline 10-31 [id number] tablet (50 Health ) 50 MG 00:00: 04:59 3D mg total) tablet 00 :00 by mouth 3 (three) times a day. hydrALAZINE 2020- No [id number] 50mg Q.[id number] Take 1 UT (Apresoline 10-31 [id number] tablet (50 Health ) 50 MG 00:00: 04:59 3D mg total) tablet 00 :00 by mouth 3 (three) times a day. hydrALAZINE 2020- No [id number] 50mg Q.[id number] Take 1 UT (Apresoline 10-31 [id number] tablet (50 Health ) 50 MG 00:00: 04:59 3D mg total) tablet 00 :00 by mouth 3 (three) times a day. Breztri 2020-0 Yes UT Aerosphere 6-09 Health 160-9-4.8 00:00: MCG/ACT 00 aerosol Breztri 2020-0 Yes UT Aerosphere 609 Health 160-9-4.8 00:00: MCG/ACT 00 aerosol Breztri 2020-0 Yes UT Aerosphere 6-09 Health 160-9-4.8 00:00: MCG/ACT 00 aerosol Breztri 2020-0 Yes UT Aerosphere 6-09 Health 160-9-4.8 00:00: MCG/ACT 00 aerosol albuterol 2020-0 Yes UT (2.5 6-02 Health MG/3ML) 00:00: 0.083% 00 nebulizer solution albuterol 2020-0 Yes UT (2.5 6-02 Health MG/3ML) 00:00: 0.083% 00 nebulizer solution albuterol 2020-0 Yes UT (2.5 6-02 Health MG/3ML) 00:00: 0.083% 00 nebulizer solution albuterol 2020-0 Yes UT (2.5 6-02 Health MG/3ML) 00:00: 0.083% 00 nebulizer solution amiodarone 2020-0 Yes UT (Pacerone) 5-31 Health 200 MG 00:00: tablet 00 amiodarone 0 Yes UT (Pacerone) 531 Health 200 MG 00:00: tablet 00 amiodarone 2020- No UT (Pacerone) 10-20 07-26 Health 200 MG 00:00: 00:00 tablet 00 :00 lisinopril 0 Yes UT 40 MG 5-30 Health tablet 00:00: 00 sertraline 0 Yes 200mg 200 mg. UT (Zoloft) 5-30 Health 100 MG 00:00: tablet 00 lisinopril 0 Yes UT 40 MG 5-30 Health tablet 00:00: 00 sertraline 0 Yes 200mg 200 mg. UT (Zoloft) 530 Health 100 MG 00:00: tablet 00 lisinopril 0 Yes UT 40 MG 5-30 Health tablet 00:00: 00 sertraline 0 Yes UT (Zoloft) 5-30 Health 100 MG 00:00: tablet 00 lisinopril 0 Yes UT 40 MG 5-30 Health tablet 00:00: 00 sertraline 0 Yes 200mg 200 mg. UT (Zoloft) 5-30 Health 100 MG 00:00: tablet 00 mupirocin 0 Yes UT (Bactroban) 528 Health 2 % 00:00: ointment 00 mupirocin 0 Yes UT (Bactroban) 528 Health 2 % 00:00: ointment 00 mupirocin 0 Yes UT (Bactroban) 528 Health 2 % 00:00: ointment 00 mupirocin 0 Yes UT (Bactroban) 528 Health 2 % 00:00: ointment 00 nystatin 2020- No [id number] Q.25D Take 5 mL Methodi (MYCOSTATIN 10-06 (500,000 st ) 100,000 00:00: 04:59 Units Hospit a unit/mL 00 :00 total) by l suspension mouth 4 (four) times a day for 14 days. Swish in mouth sucralfate 2020- No 1g Q.25D Take 10 mL Methodi (Carafate) 5-17 05-28 ([address] 100 mg/mL 00:00: 04:59 total) by Ho spita suspension 00 :00 mouth 4 l (four) times a day for 10 days. clobetasol 2020-0 Yes 1{appli Q12H Apply 1 U T (Temovate) 5-14 cation} applicatio Health 0.05 % 00:00: n ointment 00 topically every 12 (twelve) hours. LORazepam 2020-0 Yes UT (Ativan) 2 5-14 Health MG tablet 00:00: 00 clobetasol 2020-0 Yes 1{appli Q12H Apply 1 U T (Temovate) 5-14 cation} applicatio Health 0.05 % 00:00: n ointment 00 topically every 12 (twelve) hours. LORazepam 2020-0 Yes UT (Ativan) 2 5-14 Health MG tablet 00:00: 00 clobetasol 2020-0 Yes 1{appli Q12H Apply 1 U T (Temovate) 5-14 cation} applicatio Health 0.05 % 00:00: n ointment 00 topically every 12 (twelve) hours. LORazepam 2020-0 Yes UT (Ativan) 2 5-14 Health MG tablet 00:00: 00 amLODIPine 2020-0 Yes 10mg QD Take 10 mg U T (Norvasc) 5-14 by mouth 1 Heal th 10 MG 00:00: (one) time tablet 00 each day. clobetasol 2020-0 Yes 1{appli Q12H Apply 1 U T (Temovate) 5-14 cation} applicatio Health 0.05 % 00:00: n ointment 00 topically every 12 (twelve) hours. LORazepam 2020-0 Yes UT (Ativan) 2 5-14 Health MG tablet 00:00: 00 amLODIPine 2020-0 Yes 10mg QD Take 10 mg U T (Norvasc) 5-14 by mouth 1 Heal th 10 MG 00:00: (one) time tablet 00 each day. Eliquis 5 2020-0 Yes UT MG tablet 5-05 Health 00:00: 00 Eliquis 5 2020-0 Yes UT MG tablet 5-05 Health 00:00: 00 Eliquis 5 2021-0 Yes UT MG tablet 5-05 Health 00:00: 00 Eliquis 5 2020-0 Yes UT MG tablet 5-05 Health 00:00: 00 pantoprazol 0 Yes UT e 4-20 Health (ProtoNix) 00:00: 40 MG EC 00 tablet pantoprazol 0 Yes UT e 4-20 Health (ProtoNix) 00:00: 40 MG EC 00 tablet pantoprazol 0 Yes UT e 4-20 Health (ProtoNix) 00:00: 40 MG EC 00 tablet pantoprazol 0 Yes UT e 4-20 Health (ProtoNix) 00:00: 40 MG EC 00 tablet pantoprazol 2020- No 40mg Q.5D Take 2 Met hodi e 4-16 05-[address] (Protonix) 00:00: 04:59 (40 mg Hosp soren 20 MG EC 00 :00 total) by l tablet mouth 2 (two) times a day for 30 days. esomeprazol 2020- No 40mg Q.5D Take 40 mg Methodi e (NexIUM) 12 -[address] 40 MG 13:54: [...] ia 4-10 (Same as: l 14:00: Zoloft) [place] 00 Sertraline No Notes: Memor ia 4-10 (Same as: l 14:00: Zoloft) [place] 00 pantoprazol No Notes: Caesar lisa e 4-10 Tablet l 14:00: should not Marty 00 be chewed or crushed. (Same as: Protonix) Amiodarone No Notes: Memor ia 4-10 (Same as: l 14:00: Cordarone) [place] 00 Amlodipine No Notes: Memor ia 4-10 (Same as: l 14:00: Norvasc) [place] 00 emtricitabi No Notes: Caesar lisa ne 200 MG / 4-10 (Same as: l tenofovir 14:00: Descovy) Herm ariel alafenamide 00 Non-formul 25 MG Oral nancy Tablet [Descovy] Sertraline No Notes: Memor ia 4-10 (Same as: l 14:00: Zoloft) [place] 00 pantoprazol No Notes: Caesar lisa e 4-10 Tablet l 14:00: should not [place] 00 be chewed or crushed. (Same as: Protonix) Amiodarone No Notes: Memor ia 4-10 (Same as: l 14:00: Cordarone) Marty Amlodipine No Notes: Memor ia 4-10 (Same as: l 14:00: Norvasc) [place] emtricitabi No Notes: Caesar lisa ne 200 MG / 4-10 (Same as: l tenofovir 14:00: Descovy) Herm ariel alafenamide 00 Non-formul 25 MG Oral nancy Tablet [Descovy] Sertraline No Notes: Memor ia 4-10 (Same as: l 14:00: Zoloft) [place] 00 pantoprazol No Notes: Caesar lisa e 4-10 Tablet l 14:00: should not [place] 00 be chewed or crushed. (Same as: Protonix) Amiodarone No Notes: Memor ia 4-10 (Same as: l 14:00: Cordarone) [place] Amlodipine No Notes: Memor ia 4-10 (Same as: l 14:00: Norvasc) [place] emtricitabi No Notes: Caesar lisa ne 200 MG / 4-10 (Same as: l tenofovir 14:00: Descovy) Herm ariel alafenamide 00 Non-formul 25 MG Oral nancy Tablet [Descovy] Sertraline No Notes: Memor ia 4-10 (Same as: l 14:00: Zoloft) [place] 00 pantoprazol No Notes: Caesar lisa e 4-10 Tablet l 14:00: should not [place] 00 be chewed or crushed. (Same as: Protonix) Amiodarone No Notes: Memor ia 4-10 (Same as: l 14:00: Cordarone) Mraty 00 Amlodipine No Notes: Memor ia 4-10 [...] e 4-10 Tablet l 14:00: should not [place] 00 be chewed or crushed. (Same as: [...] M emoria 4-10 interfere l 02:00: w/enteral [place] 00 feeds - Take 1 hr before [...] M emoria 4-10 interfere l 02:00: w/enteral [place] 00 feeds - Take 1 hr before [...] Memoria 4-10 Same as: l 02:00: Eliquis [place] 00 Hydralazine No Notes: Caesar lisa Hydrochlori 4-10 (Same as: l de 50 MG 02:00: Apresoline Her mitchell Oral Tablet 00 ) May interfere w/enteral feedings Take With Food Sucralfate No Notes: May M emoria 4-10 interfere l 02:00: w/enteral [place] 00 feeds - Take 1 hr before [...] M emoria 4-10 interfere l 02:00: w/enteral [place] 00 feeds - Take 1 hr before [...] not exceed l #3 00:12: 4gm/day of [place] acetaminop hen. (Same as: Tylenol with Codeine # 3) acetaminoph No Notes: Do M emoria en-codeine 4-10 not exceed l #3 00:12: 4gm/day of [place] acetaminop hen. (Same as: Tylenol with Codeine # 3) acetaminoph No Notes: Do M emoria en-codeine 4-10 not exceed l #3 00:12: 4gm/day of acetaminop hen. (Same as: Tylenol with Codeine # 3) Buspirone 0 No Notes: Memori a 08-29 (Same As: l 22:00: BuSpar) Lisinopril 0 No 40 mg, 1 Mem oria 4-09 tab, l 22:00: Route: PO, [place] 00 Drug form: TAB, BID, Dosing Weight 97.273, kg, Start date: 08/29/20 17:00:00 CDT, Duration: 30 day, Stop date: 09/28/20 9:00:00 CDT metoprolol 2020-0 No 100 mg, 1 Me moria tartrate [...] Stop date: 09/28/20 9:00:00 CDT, 0 Buspirone 0 No Notes: Memori a 08-29 (Same As: l 22:00: BuSpar) Lisinopril 0 No 40 mg, 1 Mem oria -09 tab, l 22:00: Route: PO, Drug form: TAB, BID, Dosing Weight 97.273, kg, Start date: 08/29/20 17:00:00 CDT, Duration: 30 day, Stop date: 09/28/20 9:00:00 CDT metoprolol 2020-0 No 100 mg, 1 Me moria tartrate [...] oria -09 tab, l 22:00: Route: PO, Drug form: TAB, BID, Dosing Weight 97.273, kg, Start date: 08/29/20 17:00:00 CDT, Duration: 30 day, Stop date: 09/28/20 9:00:00 CDT metoprolol 2020-0 No 100 mg, 1 Me moria tartrate [...] 4- (Same As: l 22:00: BuSpar) Lisinopril 2020-0 No 40 mg, 1 Mem oria 4-09 tab, l 22:00: Route: PO, [place] 00 Drug form: TAB, BID, Dosing Weight 97.273, kg, Start date: 08/29/20 17:00:00 CDT, Duration: 30 day, Stop date: 09/28/20 9:00:00 CDT metoprolol 1-0 No 100 mg, 1 Me moria tartrate 4-09 tab, l 22:00: Route: PO, [place] 00 Drug form: TAB, BID, Dosing Weight [...] day, Stop date: 09/28/20 9:00:00 CDT metoprolol 2020-0 No 100 mg, 1 Me moria tartrate [...] oria -09 tab, l 22:00: Route: PO, [place] 00 Drug form: TAB, BID, Dosing Weight [...] Notes: Memoria 4-09 (Same l 17:07: as:MORPhin [place] 00 e Sulfate) Morphine No Notes: Memoria 4-09 (Same l 17:07: as:MORPhin [place] 00 e Sulfate) Morphine No Notes: Memoria [...] Stop date: 09/27/20 11:00:00 CDT, 0 buPROPion No 150 mg, 1 Mem oria [...] 150 mg, 1 Mem oria 24 hour 08-29 tab, l extended 16:00: Route: PO, Her mitchell release 00 Drug form: ERTAB, Q24H, Dosing Weight 97.273, kg, Start date: 08/29/20 11:00:00 CDT, Duration: 30 day, Stop date: 09/27/20 11:00:00 CDT, 0 buPROPion 2021-0 No 150 mg, 1 Mem oria 24 hour - tab, l extended 16:00: Route: PO, Her imtchell release 00 Drug form: ERTAB, Q24H, Dosing Weight 97.273, kg, Start date: 08/29/20 11:00:00 CDT, Duration: 30 day, Stop date: 09/27/20 11:00:00 CDT, 0 glycopyrrol 2021-0 No Route: IV, Memoria ate (ANES) 08-29 Drug form: l 15:40: INJ, ONCE, Stop date: 08/29/20 10:40:00 CDT neostigmine 0 No Route: IV, Memoria (ANES) 08-29 Drug [...] ONCE, Stop date: 08/29/20 10:40:00 CDT neostigmine 0 No Route: IV, Memoria (ANES) 08-29 Drug [...] ONCE, Stop date: 08/29/20 10:40:00 CDT protamine 2021-0 No Route: IV, Me moria (ANES) 08-29 Drug form: l 15:40: INJ, ONCE, Stop date: 08/29/20 10:40:00 CDT fentaNYL 0 [...] ONCE, Stop date: 08/29/20 10:40:00 CDT fentaNYL 0 No Route: IV, Mem oria (ANES) 08-29 Drug form: l 15:40: INJ, ONCE, Stop date: 08/29/20 10:40:00 CDT glycopyrrol 0 No Route: IV, Memoria ate (ANES) 08-29 Drug form: l 15:40: INJ, ONCE, Stop date: 08/29/20 10:40:00 CDT neostigmine 0 No Route: IV, Memoria (ANES) 08-29 Drug form: l 15:40: INJ, ONCE, Stop date: 08/29/20 10:40:00 CDT protamine 0 No Route: IV, Me moria (ANES) 08-29 Drug form: l 15:40: INJ, ONCE, Stop date: 08/29/20 10:40:00 CDT fentaNYL 0 [...] ONCE, Stop date: 08/29/20 10:40:00 CDT neostigmine 0 No Route: IV, Memoria (ANES) 08-29 Drug form: l 15:40: INJ, ONCE, Stop date: 08/29/20 10:40:00 CDT protamine 2020-0 No Route: IV, Me moria (ANES) 08-29 Drug form: l 15:40: INJ, ONCE, Stop date: 08/29/20 10:40:00 CDT fentaNYL 2020-0 No Route: IV, Mem oria (ANES) 08-29 Drug form: l 15:40: INJ, ONCE, Stop date: 08/29/20 10:40:00 CDT pantoprazol 2020-0 Yes 40 mg = 1 M emoria e 40 mg 08-29 tab, PO, l oral 15:27: Daily, # Marty enteric 00 30 tab, 0 coated Refill(s), tablet Pharmacy: [facility] 149, 162.56, cm, 08/29/20 5:30:00 CDT, Height, 97.273, kg, 08/29/20 5:30:00 CDT, Weight pantoprazol 2021-0 Yes 40 mg = 1 M emoria e 40 mg 4-09 tab, PO, l oral 15:27: Daily, # Marty enteric 00 30 tab, 0 coated Refill(s), tablet Pharmacy: [facility] 149, 162.56, cm, 08/29/20 5:30:00 CDT, Height, 97.273, kg, 08/29/20 5:30:00 CDT, Weight pantoprazol 2021-0 Yes 40 mg = 1 M emoria e 40 mg 4-09 tab, PO, l oral 15:27: Daily, # Marty enteric 00 30 tab, 0 coated Refill(s), tablet Pharmacy: [facility] 149, 162.56, cm, 08/29/20 5:30:00 CDT, Height, 97.273, kg, 08/29/20 5:30:00 CDT, Weight pantoprazol 2021-0 Yes 40 mg = 1 M emoria e 40 mg 4-09 tab, PO, l oral 15:27: Daily, # [place] enteric 00 30 tab, 0 coated Refill(s), tablet Pharmacy: [facility] 149, 162.56, cm, 08/29/20 5:30:00 CDT, Height, 97.273, kg, 08/29/20 5:30:00 CDT, Weight pantoprazol 2021-0 Yes 40 mg = 1 M emoria e 40 mg 4-09 tab, PO, l oral 15:27: Daily, # Marty enteric 00 30 tab, 0 coated Refill(s), tablet Pharmacy: [facility] 149, 162.56, cm, 08/29/20 5:30:00 CDT, Height, 97.273, kg, 08/29/20 5:30:00 CDT, Weight pantoprazol 2021-0 Yes 40 mg = 1 M emoria e 40 mg 4-09 tab, PO, l oral 15:27: Daily, # Marty enteric 00 30 tab, 0 coated Refill(s), tablet Pharmacy: [facility] 149, 162.56, cm, 08/29/20 5:30:00 CDT, Height, 97.273, kg, 08/29/20 5:30:00 CDT, Weight pantoprazol 2020-0 Yes 40 mg = 1 M emoria e 40 mg 4-09 tab, PO, l oral 15:27: Daily, # [place] enteric 00 30 tab, 0 coated Refill(s), tablet Pharmacy: [facility] 149, 162.56, cm, 08/29/20 5:30:00 CDT, Height, [...] Skylar nn 00 tab, 0 Refill(s), Pharmacy: [place] [id number], 162.56, cm, 08/29/20 5:30:00 CDT, Height, 97.273, [...] Skylar nn 00 tab, 0 Refill(s), Pharmacy: [place] [id number], 162.56, cm, 08/29/20 5:30:00 CDT, Height, 97.273, kg, 08/29/20 5:30:00 CDT, Weight pantoprazol 2020-0 No 40 mg = 1 M emoria e 40 mg 4-09 tab, PO, l oral 15:26: Daily, # [place] enteric 00 30 tab, 0 coated Refill(s) tablet sucralfate 2020-0 Yes 1 gm = 1 Mem oria 1 g oral 4-09 tab, PO, l tablet 15:26: Q12H, # 28 Skylar nn 00 tab, 0 Refill(s), Pharmacy: [facility] 149, 162.56, cm, 08/29/20 5:30:00 CDT, Height, [...] Skylar nn 00 tab, 0 Refill(s), Pharmacy: [place] [id number], 162.56, cm, 08/29/20 5:30:00 CDT, Height, 97.273, kg, 08/29/20 5:30:00 CDT, Weight pantoprazol 2020-0 No 40 mg = 1 M emoria e 40 mg 4-09 tab, PO, l oral 15:26: Daily, # [place] [facility] 00 30 tab, 0 coated Refill(s) tablet sucralfate 2020-0 Yes 1 gm = 1 Mem oria 1 g oral 4-09 tab, PO, l tablet 15:26: Q12H, # 28 Skylar nn 00 tab, 0 Refill(s), Pharmacy: [facility] 149, 162.56, cm, 08/29/20 5:30:00 CDT, Height, [...] Skylar nn 00 tab, 0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 COMPLETE BLD COUNT W/AUTO DIFF 2020-04-28 Ted Gonzalez 08:11:00 [facility] MAGNESIUM LEVEL 2020-04-28 Ted Gonzalez 08:11:00 [facility] PHOSPHORUS LEVEL 2020-04-28 Ted Gonzalez 08:11:00 [facility] PROTHROMBIN TIME WITH INR 2020-04-28 Jignesh Gonzalez ist 08:11:00 [facility] PARTIAL THROMBOPLASTIN TIME (PTT) 2020-04-28 Ted Gonzalez 08:11:00 [facility] ESTIMATED GFR 2020-04-28 Eliseo Arce 08:11:00 Hospital TYPE AND SCREEN 2020-04-28 Eliseo Arce 08:11:00 Hospital POC GLUCOSE 2020-04-28 Eliseo Arce 05:38:00 Hospital POC GLUCOSE 2020-04-28 Eliseo Arce 02:14:00 Hospital TTE COMPLETE, WO CONTRAST, W 2020-04-27 [place] th[facility] DOPPLER ([id number]) 21:00:00 Hospital POC GLUCOSE 2020-04-27 Eliseo Arce 18:30:00 Hospital BASIC METABOLIC PANEL 2020-04-27 Eliseo Arce 12:34:00 Hospital ESTIMATED GFR 2020-04-27 Eliseo Arce 12:34:00 Hospital POC GLUCOSE 2020-04-27 Eliseo Arce 03:18:00 Hospital ECG 12-LEAD 2020-04-27 Nieves Hyde 02:24:31 Hospital COVID-19 QUALITATIVE RT-PCR 2020-04-26 Vitaly Gonzalez odist 21:44:00 [facility] HC COMPLETE BLD COUNT W/AUTO DIFF 2020-04-26 Amirhardy, Synagogue 09:05:00 [facility] BASIC METABOLIC PANEL 2020-04-26 Amirhardy [facility] 09:05:00 [facility] MAGNESIUM LEVEL 2020-04-26 Amirisaiosravi, Synagogue 09:05:00 [facility] PHOSPHORUS LEVEL 2020-04-26 Amirkhosravi, Synagogue 09:05:00 [facility] CD 4 SUBSET 2020-04-26 Eliseo Arce 09:05:00 Hospital ESTIMATED GFR 2020-04-26 Eliseo Arce 09:05:00 Hospital MISCELLANEOUS REFERRAL TEST 2020-04-26 Eliseo Arce Meth odist 09:05:00 Hospital POTASSIUM LEVEL 2020-04-26 Eliseo Arce 03:04:00 Hospital HC COMPLETE BLD COUNT W/AUTO DIFF 2020-04-26 Amirhardy, Synagogue 00:51:00 [facility] BASIC METABOLIC PANEL 2020-04-26 Carlos [facility] 00:51:00 [facility] MAGNESIUM LEVEL 2020-04-26 Amirisaiosravi, Synagogue 00:51:00 [facility] PHOSPHORUS LEVEL 2020-04-26 Amirisaiosvi, Synagogue 00:51:00 [facility] ESTIMATED GFR 2020-04-26 Eliseo Arce [facility] 00:51:00 Hospital [place] ESOPHAGRAM DOUBLE CONTRAST 2020-04-25 Eliseo Arce Me thodist 17:31:[address] CHEST WO CONTRAST ABDOMEN WO 2020-04-21, [facility] CONTRAST PELVIS WO CONTRAST 14:15:34 [facility] HC COMPLETE BLD COUNT W/AUTO DIFF 2020-04-21, [facility] 13:22:00 [facility] COMPREHENSIVE METABOLIC PANEL 2020-04-21, [facility] Me [facility]ist 13:22:00 [facility] LIPASE LEVEL 2020-04-21, [facility] 13:22:00 [facility] LACTIC ACID LEVEL, SEPSIS - NOW 2020-04-21, Geraldo Jean AND REPEAT 2X EVERY 3 HOURS 13:22:00 [facility] ital ESTIMATED GFR 2020-04-21, Geraldo Jean 13:22:00 [facility] Plan of Care Planned Activity Planned Date Details Comments Source Future Scheduled Test DIABETES: RETINAL EYE [facility] EXAM [code = DIABETES: RETINAL EYE EXAM] Future Scheduled Test DIABETIC FOOT EXAM [facility] [code = DIABETIC FOOT EXAM] Future Scheduled Test Screening for malignant [facility] neoplasm of cervix (procedure) [code = 592997742] Future Scheduled Test BREAST CANCER SCREENING [facility] [code = BREAST CANCER SCREENING] Future Scheduled Test COLONOSCOPY SCREENING [facility] [code = COLONOSCOPY SCREENING] Future Scheduled Test SHINGLES VACCINES (#1) [facility] [code = SHINGLES VACCINES (#1)] Future Scheduled Test COVID-19 VACCINE (3 - [facility] Pfizer risk 3-dose series) [code = COVID-19 VACCINE (3 - Pfizer risk 3-dose series)] Future Scheduled Test INFLUENZA VACCINE [code [facility] = INFLUENZA VACCINE] Future Scheduled Test 65+ PNEUMOCOCCAL [facility] VACCINE (4 of 4) [code = 65+ PNEUMOCOCCAL VACCINE (4 of 4)] Encounters Start End Encounter Admission Attending Care Care Encounter Source Date/Time Date/Time Type Type Clinicians Facility Department ID 2020-12-12 Outpatient [facility], [facility] [id number] [place] 08:16:46 [facility] 2020-10-31 Outpatient [facility], [facility] [id number] [place] 09:44:50 [facility] 2020-09-30 Outpatient [facility], [facility] [id number] [place] 13:16[facility]03 [facility] 2021-04-15 2021-04-15 Outpatient R [facility] [id number] Univers 08:00:00 08:00:00 [id number] raheemy of [facility] 2021-03-30 2021-03-30 Outpatient R SELF, [facility] [id number] Univers 08:45:00 08:45:00 EMERITA rodas [facility] 2021-02-13 2021-02-13 [facility], 1.2.840.7 [id number] 876 [id number] Univers 00:00:00 00:00:00 Santiago 71550.1.1 ity of 3.104.2.7 [place] .3.675859 Medica l .8 Branch 2021-01-28 2021-01-28 Travel 1.2.840.1 1.2.964.382 1819 [id number] Univers 00:00:00 00:00:00 19265.1.1 350.1.13.10 ity of 3.104.2.7 [place].698 [place] .3.600002 084.8 Medica l .8 Branch 2021-01-19 2021-01-19 Telephone Prabhu, 1.2.840.1 [id number] 2100 [id number] Method 00:00:00 00:00:[address] 3.430.2.7 Hospit a .3.096622 l .8 2021-01-04 2021-01-04 Letter Shelia, 1.2.840.0 [id number] 696 Univers 00:00:00 00:00:00 (Out) Dagoberto H 87865.1.1 ity of 3.104.2.7 [place] .3.510886 Medica l .8 [place] 2021-01-03 2021-01-03 Dmitry Bass 1.2.840.3 [id number] 66232 790 Univers 00:00:00 00:00:00 (Out) Dagoberto H 61804.1.1 ity of 3.104.2.7 [place] .3.864276 Medica l .8 [place] 2021-01-02 2021-01-02 Laboratory Cuba Franks 1.2.840.7 [id number] Univers 12:14:13 12:57:34 Only Lab, [place] 99496.1.1 ity of 3.104.2.7 [place] .3.329295 Medica l .8 [place] 2021-01-02 2021-01-02 Travel 1.2.840.1 1.2.338.302 6974 2306 Univers 00:00:00 00:00:00 26502.1.1 350.1.13.10 ity of 3.104.2.7 [place].3.698 [place] .3.394653 084.8 Medica l .8 [place] 2021-01-02 2021-01-02 Letter Doctor 1.2.840.7 [id number] 948 Univers 00:00:00 00:00:00 (Out) Unassigned, 24891.1.1 ity of [place] 3.104.2.7 [place] .3.627068 Medica l .8 [place] 2021-01-02 2021-01-02 Letter Doctor 1.2.840.4 [id number] 946 Univers 00:00:00 00:00:00 (Out) Unassigned, 72095.1.1 ity of [place] 3.104.2.7 [place] .3.309210 Medica l .8 [place] 2020-12-12 2020-12-12 Office Hematpour, UTP 6400 1.2.840.114 12 [id number] 07:42:02 08[facility]18[facility] 350.1.13.58 9.2.7.2.686 [id number] 1 2020-12-12 2020-12-12 Office Hematpour, UTP 6400 1.2.840.114 12 [id number] [place] 07:42:02 08:18:[address] 350.1.13.58 Health 9.2.7.2.686 [id number] 1 2020-12-09 2020-12-09 [facility]phone [facility], 1.2.840.1 [id number] Methodi 00:00:00 00:00:00 Sarai Corbin. 29078.1.1 316 s t 3.430.2.7 Hospit a .3.737897 l .8 2020-12-08 2020-12-08 [facility], 1.2.840.1 [id number] 2100 [id number] Methodi 12:35:54 23:59:00 Encounter Ray 38261.1.[address] 3.430.2.7 Hospit a .3.541176 l .8 2020-12-08 2020-12-08 Lab Yazmin, 1.2.840.1 [id number] 31294 Methodi 17:20:50 17:25:[address] 3.430.2.7 Hospit a .3.796657 l .8 2020-12-08 2020-12-08 Office Yazmin, 1.2.840.1 [id number] 74221 26440 Methodi 09:55:34 11:39:56 Visit Ray [address]7925.1.[address] 3.430.2.7 Hospit a .3.686675 l .8 2020-12-08 2020-12-08 Travel 1.2.840.1 1.2.174.622 2374 049631 Methodi 00:00:00 00:00:[address] 3.430.2.7 0.2.7.3.698 spita .3.437013 084.8 l .8 2020-12-02 2020-12-02 Scientist Immunology [facility] 1.2.840.114 8 [id number] 10:20:06 10:36:19 Visit [facility] 350.1.13.10 [facility] 4.2.7.2.686 [id number] 316 2020-11-25 2020-11-[address] [facility] 1.2.840.114 [id number] 11:06:30 11:58:[address] [facility] FIELD EVIDENCE TECHNICIAN 350.1.13.10 [facility] 4.2.7.2.686 MATERNAL [id number] & CHILD [facility] 2020-11-25 2020-11-25 [facility] 1.2.985.268 9863 4592 00:00:00 00:00:00 [facility] 350.1.13.10 CLINICS 4.2.7.2.686 [id number] 089 2020-11-25 2020-11-25 [facility] 1.2.302.022 4027 0821 00:00:00 00:00:00 Amarilissandymeredith Hairston FIELD EVIDENCE TECHNICIAN 350.1.13.10 [facility] 4.2.7.2.686 MATERNAL [id number] & CHILD [address] [place] [address] 2020-11-14 2020-11-14 Abstract Clark, 1.2.840.1 [id number] 68310 62676 Methodi 00:00:00 00:00:[address] 3.430.2.7 Hospit a .3.821162 l .8 2020-11-14 2020-11-14 Telephone Clark, 1.2.840.1 [id number] 2100 [id number] Methodi 00:00:00 00:00:[address] 3.430.2.7 Hospit a .3.762896 l .8 2020-11-07 2020-11-07 Telephone KIMBERLEY Ortiz 6400 1.2.840.114 124 [id number] 00:00:00 00:00:[address] 350.1.13.58 9.2.7.2.686 [id number] 1 2020-11-07 2020-11-07 Telephone Agustina Ortiz 6400 1.2.840.11 4 [id number] [place] 00:00:00 00:00:[address] 350.1.13.58 Health 9.2.7.2.686 [id number] 1 2020-10-31 2020-10-31 Office HematpoKIMBERLEY bell 6400 1.2.840.114 12 [id number] [place] 07:54:00 09:45:[address] 350.1.13.58 Health 9.2.7.2.686 [id number] 1 2020-10-30 2020-10-30 Abstract Rody Maguire UTP 6400 1.2.840.1 14 [id number] [place] 00:00:00 00:00:[address] 350.1.13.58 Health 9.2.7.2.686 [id number] 1 2020-10-27 2020-10-27 Telephone Yazmin, 1.2.840.4 [id number] Methodi 00:00:00 00:00:[address] 3.430.2.7 Hospit a .3.527722 l .8 2020-10-24 2020-10-24 Telephone Clark, 1.2.840.1 [id number] 2099 [id number] Methodi 00:00:00 00:00:[address] 3.430.2.7 Hospit a .3.799727 l .8 2020-10-06 2020-10-12 Telemedici Yazmin, 1.2.840.1 [id number] Methodi 15:26:54 00:08:46 ne Ray 46935.1.[address] 3.430.2.7 Hospit a .3.988009 l .8 2020-09-30 2020-09-30 Telephone Yazmin, 1.2.840.3 [id number] Methodi 00:00:00 00:00:[address] 3.430.2.7 Hospit a .3.131409 l .8 2020-09-21 2020-09-21 [facility] 1.2.840.1 1.2.008.871 9640 789922 Methodi 00:00:00 00:00:[address] 3.430.2.7 0.2.7.3.698 Ho spita .3.541999 084.8 l .8 2020-09-01 2020-09-09 Lab Paula, Min 1.2.840.1 [id number] 34480 46473 Methodi 10:13:59 01:05:[address] 3.430.2.7 Hospit a .3.131762 l .8 2020-09-06 2020-09-06 Hospital 1.2.840.1 [id number] 93498 19045 Methodi 17:42:30 23:59:[address] 3.430.2.7 Hospit a .3.613849 l .8 2020-09-06 2020-09-06 [facility], 1.2.840.1 [id number] 2099 [id number] Methodi 16:50:00 17:41:00 Encounter Ray [address]5440.1.[address] 3.430.2.7 Hospit a .3.989240 l .8 2020-09-05 2020-09-05 [facility], 1.2.840.1 [id number] 2099 157199 Methodi 09:17:00 19:45:00 Encounter Ray [address]64.1.[address] 3.430.2.7 Hospit a .3.681767 l .8 2020-09-05 2020-09-05 Surgery [facility], 1.2.840.1 [id number] 01868 64198 Methodi 11:30:00 13:15:[address] 3.430.2.7 Hospit a .3.267004 l .8 2020-09-05 2020-09-05 Anesthesia Remigio, 1.2.840.1 [id number] 571 [id number] Methodi 11:27:00 12:20:00 Event Kirit 94891.1.1 243 s t V. 3.430.2.7 Hospit a .3.593589 l .8 2020-09-05 2020-09-05 Travel 1.2.840.1 1.2.909.845 6176 360829 Methodi 00:00:00 00:00:[address] 3.430.2.7 0.2.7.3.698 Ho spita .3.963510 084.8 l .8 2020-09-04 2020-09-04 Telephone Carol Ann, 1.2.840.1 [id number] Methodi 00:00:00 00:00:00 Sarai Lieberman 52140.1.1 762 s t 3.430.2.7 Hospit a .3.454164 l .8 2020-09-02 2020-09-02 Telephone Carol Ann, 1.2.840.8 [id number] Methodi 00:00:00 00:00:00 Sarai Lieberman 48440.1.1 344 s t 3.430.2.7 Hospit a .3.627775 l .8 2020-09-01 2020-09-01 [facility] 1.2.840.1 [id number] 92798 10095 Methodi 08:42:53 09:50:51 Visit Ray [address]502.1.[address] 3.430.2.7 Hospit a .3.259721 l .8 2020-09-01 2020-09-01 Telephone Yazmin, 1.2.840.3 [id number] 21 [id number] Methodi 00:00:00 00:00:[address] 3.430.2.7 Hospit a .3.205616 l .8 2020-09-01 2020-09-01 Travel 1.2.840.1 1.2.826.247 6005 380334 Methodi 00:00:00 00:00:[address] 3.430.2.7 0.2.7.3.698 spita .3.050048 084.8 l .8 2020-08-29 2020-08-30 Bedded [facility] [id number] [facility] 10:20:00 14:10:00 Outpatient [facility] 00 l [facility] 2020-08-29 2020-08-29 Outpatient [facility] 7500 [facility] 05:20:00 05:20:00 2020-08-27 2020-08-27 [facility], 1.2.840.1 [id number] 2100 [id number] Methodi 09:55:15 23:59:00 Encounter Ray [address]53.1.[address] 3.430.2.7 Hospit a .3.134928 l .8 2020-08-27 2020-08-27 Travel 1.2.840.1 1.2.877.900 7562 [id number] Methodi 00:00:00 00:00:[address] 3.430.2.7 0.2.7.3.698 Ho spita .3.148577 084.8 l .8 2020-08-21 2020-08-21 Travel 1.2.840.1 1.2.239.152 6026 902896 Methodi 00:00:00 00:00:[address] 3.430.2.7 0.2.7.3.698 Ho spita .3.836027 084.8 l .8 2020-08-19 2020-08-19 Telephone Meli, 1.2.840.1 [id number] 247 [id number] Methodi 00:00:00 00:00:[address] 3.430.2.7 Hospit a .3.219518 l .8 2020-08-19 2020-08-19 Travel 1.2.840.1 1.2.969.072 8415 851542 Methodi 00:00:00 00:00:[address] 3.430.2.7 0.2.7.3.698 Ho spita .3.638445 084.8 l .8 2020-08-18 2020-08-18 Orders Carol Ann, 1.2.840.3 [id number] Methodi 00:00:00 00:00:00 Only Sarai Lieberman 33024.1.1 410 s t 3.430.2.7 Hospit a .3.003042 l .8 2020-08-18 2020-08-18 Travel 1.2.840.1 1.2.665.443 8999 484911 Methodi 00:00:00 00:00:[address] 3.430.2.7 0.2.7.3.698 Ho spita .3.774833 084.8 l .8 2020-08-15 2020-08-15 Abstract Rodas, 1.2.840.1 [id number] 26687 Methodi 00:00:00 00:00:[address] 3.430.2.7 Hospit a .3.542065 l .8 2020-07-02 2020-08-06 Clinical 1.2.840.1 [id number] 45742 Methodi 10:40:46 01:45:[address] 3.430.2.7 Hospit a .3.291216 l .8 2020-07-30 2020-07-30 Travel 1.2.840.1 1.2.873.415 3120 270104 Methodi 00:00:00 00:00:[address] 3.430.2.7 0.2.7.3.698 Ho spita .3.212498 084.8 l .8 2020-07-28 2020-07-28 Office [facility], 1.2.840.1 [id number] 49515 Methodi 08:35:45 10:11:52 Visit Ray 49954.1.[address] 3.430.2.7 Hospit a .3.053891 l .8 2020-07-28 2020-07-28 Telephone Clark, 1.2.840.1 [id number] 2099 474288 Methodi 00:00:00 00:00:[address] 3.430.2.7 Hospit a .3.025429 l .8 2020-07-28 2020-07-28 Travel 1.2.840.1 1.2.171.250 8374 273644 Methodi 00:00:00 00:00:[address] 3.430.2.7 0.2.7.3.698 Ho spita .3.995119 084.8 l .8 2020-07-25 2020-07-25 Telephone Carol Ann, 1.2.840.9 [id number] Methodi 00:00:00 00:00:00 Sarai Lieberman 28592.1.1 314 s t 3.430.2.7 Hospit a .3.553517 l .8 2020-07-25 2020-07-25 Travel 1.2.840.1 1.2.723.280 5120 195910 Methodi 00:00:00 00:00:[address] 3.430.2.7 0.2.7.3.698 Ho spita .3.076837 084.8 l .8 2020-07-23 2020-07-23 Clinical Tori, 1.2.840.1 [id number] 31990 18178 Methodi 08:39:40 08:44:40 Support Garlandvalentinomagali 42659.1.[address] P. 3.430.2.7 Hospit a .3.932111 l .8 2020-07-23 2020-07-23 Travel 1.2.840.1 1.2.871.934 0715 699170 Methodi 00:00:00 00:00:[address] 3.430.2.7 0.2.7.3.698 Ho spita .3.584400 084.8 l .8 2020-07-11 2020-07-11 Travel 1.2.840.1 1.2.991.650 8422 770963 Methodi 00:00:00 00:00:[address] 3.430.2.7 0.2.7.3.698 Ho spita .3.500693 084.8 l .8 2020-07-02 2020-07-02 Telephone Yazmin, 1.2.840.6 [id number] 21 [id number] Methodi 00:00:00 00:00:[address] 3.430.2.7 Hospit a .3.311306 l .8 2020-07-02 2020-07-02 Travel 1.2.840.1 1.2.591.565 9098 143723 Methodi 00:00:00 00:00:[address] 3.430.2.7 0.2.7.3.698 Ho spita .3.240608 084.8 l .8 2020-06-23 2020-06-23 Office Yazmin, 1.2.840.1 [id number] 07576 17497 Methodi 09:36:17 11:00:44 Visit Ray 98249.1.[address] 3.430.2.7 Hospit a .3.351302 l .8 2020-06-23 2020-06-23 Telephone Clark, 1.2.840.1 [id number] 2099 305122 Methodi 00:00:00 00:00:[address] 3.430.2.7 Hospit a .3.320720 l .8 2020-06-23 2020-06-23 Travel 1.2.840.1 1.2.822.054 1189 034029 Methodi 00:00:00 00:00:[address] 3.430.2.7 0.2.7.3.698 Ho spita .3.640470 084.8 l .8 2020-06-09 2020-06-09 Telephone Yazmin, 1.2.840.0 [id number] 21 [id number] Methodi 00:00:00 00:00:[address] 3.430.2.7 Hospit a .3.603044 l .8 2020-06-06 2020-06-06 Refill Quinn, 1.2.840.1 [id number] 111413 3528 Methodi 00:00:00 00:00:00 Eh Lemus 58465.1.[address] 3.430.2.7 Hospit a .3.801603 l .8 2020-06-03 2020-06-03 Telephone Yazmin, 1.2.840.4 [id number] Methodi 00:00:00 00:00:[address] 3.430.2.7 Hospit a .3.674124 l .8 2020-06-02 2020-06-02 [facility] 1.2.840.5 [id number] Methodi 00:00:00 00:00:[address] 3.430.2.7 Hospit a .3.386957 l .8 2020-05-13 2020-05-13 Orders [facility], 1.2.840.1 [id number] 2099 394260 Methodi 00:00:00 00:00:00 Only Historical 21799.1.1 108 s t 3.430.2.7 Hospit a .3.269952 l .8 2020-05-09 2020-05-09 Telephone [facility], 1.2.840.1 [id number] Methodi 00:00:00 00:00:00 Sarai Corbin. 78423.1.1 660 s t 3.430.2.7 Hospit a .3.393737 l .8 2020-05-09 2020-05-09 Telephone [facility], 1.2.840.5 [id number] Methodi 00:00:00 00:00:[address] 3.430.2.7 Hospit a .3.904788 l .8 2020-05-08 2020-05-08 Telephone Yazmin, 1.2.840.3 [id number] Methodi 00:00:00 00:00:[address] 3.430.2.7 Hospit a .3.428106 l .8 2020-05-07 2020-05-07 Telephone [facility], 1.2.840.1 [id number] Methodi 00:00:00 00:00:[address] 3.430.2.7 Hospit a .3.847856 l .8 2020-05-05 2020-05-05 [facility], 1.2.840.3 [id number] 21 [id number] Methodi 00:00:00 00:00:[address] 3.430.2.7 Hospit a .3.606304 l .8 2020-04-25 2020-05-03 [facility], 1.2.840.1 [id number] 2099 [id number] Methodi 17:33:00 13:39:00 Encounter Ray 81896.1.[address] 3.430.2.7 Hospit a .3.403431 l .8 2020-04-28 2020-04-28 Anesthesia Tomas Pinon 1.2.840.1 [id number] Methodi 13:38:00 19:40:00 Event Justine Catalan 80825.1.[address] 3.430.2.7 Hospit a .3.100106 l .8 2020-04-28 2020-04-28 [facility], 1.2.840.1 [id number] Methodi 13:00:00 17:10:[address] 3.430.2.7 Hospit a .3.638965 l .8 2020-04-25 2020-04-25 [facility], 1.2.840.1 [id number] 2100 [id number] Methodi 10:00:00 17:32:00 Encounter Ray [address]97.1.[address] 3.430.2.7 Hospit a .3.194497 l .8 2020-04-25 2020-04-25 [facility], 1.2.840.1 [id number] [id number] Methodi 11:43:50 13:44:26 Visit Ray 83502.1.[address] 3.430.2.7 Hospit a .3.013494 l .8 2020-04-25 2020-04-25 Travel 1.2.840.1 1.2.835.914 8946 489190 Methodi 00:00:00 00:00:[address] 3.430.2.7 0.2.7.3.698 Ho spita .3.957656 084.8 l .8 2020-04-24 2020-04-24 Prep for Carol Ann, 1.2.840.1 [id number] 2 [id number] Methodi 00:00:00 00:00:00 Surgery Sarai Lieberman 62038.1.1 524 s t 3.430.2.7 Hospit a .3.353567 l .8 2020-04-22 2020-04-22 Telephone Meli, 1.2.840.1 [id number] Methodi 00:00:00 00:00:[address] 3.430.2.7 Hospit a .3.738058 l .8 2020-04-22 2020-04-22 Travel 1.2.840.1 1.2.448.564 3964 105728 Methodi 00:00:00 00:00:[address] 3.430.2.7 0.2.7.3.698 Ho spita .3.804597 084.8 l .8 2020-04-21 2020-04-21 Emergency Geraldo 1.2.840.1 [id number] 2 [id number] Methodi 06:51:00 10:43:[address] 3.430.2.7 Hospit a .3.773306 l .8 2020-04-21 2020-04-21 [facility], 1.2.840.1 [id number] 21 [id number] Methodi 00:00:00 00:00:00 Only Sarai Corbin. 21376.1.1 550 s t 3.430.2.7 Hospit a .3.188099 l .8 2020-04-16 2020-04-16 Telephone [facility], 1.2.840.1 [id number] Methodi 00:00:00 00:00:00 Sarai Corbin. 61652.1.1 673 s t 3.430.2.7 Hospit a .3.372198 l .8 2020-04-10 2020-04-10 Telephone Yazmin, 1.2.840.0 [id number] Methodi 00:00:00 00:00:[address] 3.430.2.7 Hospit a .3.306856 l .8 2020-04-07 2020-04-07 Telephone Nahum, 1.2.840.1 [id number] 2099 [id number] Methodi 00:00:00 00:00:[address] 3.430.2.7 Hospit a .3.638003 l .8 2020-04-01 2020-04-01 Orders Provider, 1.2.840.1 [id number] 2099 [id number] Methodi 00:00:00 00:00:00 Only Historical 55362.1.1 049 s t 3.430.2.7 Hospit a .3.108999 l .8 2020-03-31 2020-03-31 Travel 1.2.840.1 1.2.947.199 5511 905252 Methodi 00:00:00 00:00:[address] 3.430.2.7 0.2.7.3.698 Ho spita .3.329524 084.8 l .8 2020-03-27 2020-03-27 Telephone Paula, Min 1.2.840.1 [id number] Methodi 00:00:00 00:00:[address] 3.430.2.7 Hospit a .3.919054 l .8 Results Test Description Test Time Test Comments Results Result Comments Source Gastrointestinal panel 2020-12-09 04:35:05 Test Item Value Reference Range Interpretation Comme nts Adenovirus 40/41 PCR (test code = Not Detected Specimen InformationSpecimen 5838) Source: StoolSp ecimen Site: Nonpreserved Astrovirus PCR (test code = 4790) Not Detected Campylobacter PCR (test code = Not Detected 2311) Clostridioides difficile PCR Not Detected (test code = 7115) Cryptosporidium PCR (test code = Not Detected 7116) Cyclospora cayetanensis PCR (test Not Detected code = 7117) Enteroaggregative E coli PCR Not Detected (test code = 4784) Entamoeba histolytica PCR (test Not Detected code = 7118) Enteroinvasive E coli PCR (test Not Detected code = 4788) Enteropathogenic E coli PCR (test Not Detected code = 4785) Norovirus PCR (test code = 7119) Not Detected Plesiomonas shigelloides PCR Not Detected (test code = 4782) Rotavirus PCR (test code = Not Detected 1285217) Salmonella PCR (test code = 4783) Not Detected Sapovirus PCR (test code = 4791) Not Detected Enterotoxigenic E coli PCR (test Not Detected code = 4786) Shigatoxin producing E coli PCR Not Detected (test code = 4787) E coli O157 PCR (test code = Not Reported 7120) Vibrio PCR (test code = 7121) Not Detected Vibrio cholerae PCR (test code = Not Detected 7122) Yersinia enterocolitica PCR (test Not Detected code = 7123) Giardia lamblia PCR (test code = Not Detected 7124) [facility] Bp2763-52-68 19:17:40EXAMINATION: XR ABDOMEN 1 VW CLINICAL HISTORY: [...] structures are stable. Cholecystectomy clips are noted.[id number] [place] [facility] Roio3050-56-39 19:41:02EXAMINATION: OR FL < 1 HOUR C-arm fluoroscopy was requested in OR. Location: [facility] OR room 6 Procedure: EGD WITH [...] arm fluoroscopy was requested in OR. Location: [facility] OR room 6 Procedure: EGD WITH BOTOX INJECTION INTO THE PYLORUS, ENDOFLIP, ON TABLE ESOPHAGRAM (N/A ) Start: 1140 End:1222 FluoroTime: .19sec Dose: 7.8mGy Tech: A.BIMPRESSION:Intraoperative fluoroscopic images. Radiologist was not present during the examination.Separate operative report will be issued by the physician performingthe procedure.[id number] 2020-09-08 19:30:47 Test Item Value Reference Range Interpretation Comments Case number (test [id number] code = 9598583) Surgical pathology See link below for PDF report (test code = Lab Report 2255) Result status (test This is Supplemental code = 5439623) Report for [id number] [facility] 1 Vw Itbxducg7200-95-72 23:06:58EXAMINATION: XR CHEST 1 VW PORTABLE HISTORY: [...] enlarged, similar to prior. Bilateral shoulder arthroplasties. [facility]-[id number] Interface, Radiology Results Incoming - 09/06/2020 6:09PM [...] silhouette is enlarged, similar to prior.Bilateral shoulder arthroplasties.[facility]-[id number] [facility]2021-[facility] 16:47:23Kirit Flood MD 09/05/2020 11:48 [address] Location: [...] RSI: Yes Number of Attempts at Approach: [address] [place], [place] [address]EC[facility] cxkt1949-88-86 23:21:56 Test Item Value Reference Range Interpretation [...] T wave abnormality, consider anterior ischemia-Abnormal ECG- [facility]OVID-[facility] qualitative HIK6756-13-03 22:48:41 Test Item Value Reference Range Interpretation Comments Interpretation (test Negative results do code = 6405901) not preclude 2019-nCoV infection and should not be used as the sole basis for treatment or other patient management decisions. Negative results must be combined with clinical observations, patient history, and epidemiological information. COVID-19 qualitative Not-Detected Not-Detected RT-PCR result (test code = 01047-8) COVID-19 qualitative See link below for C ase Number: RT-PCR (test code = PDF Lab Report [id number]) [facility]2021-04-09 16:31:00 Test Item Value Reference Range Interpretation Comments POC Activated Clotting Time (test code 153 s = POC Activated Clotting Time) [facility] CenterOhdwsfbRBZQOATANR5162-25-65 16:31:00 Test Item Value Reference Range Interpretation Comments POC Activated Clotting Time (test code 153 s = POC Activated Clotting Time) [facility] CenterMoawnipLZKZGIOETE9785-20-11 16:31:00 Test Item Value Reference Range Interpretation Comments POC Activated Clotting Time (test code 153 s = POC Activated Clotting Time) [facility] CenterTvccertWOZYJZSLHL3405-85-78 16:31:00 Test Item Value Reference Range Interpretation Comments POC Activated Clotting Time (test code 153 s = POC Activated Clotting Time) [facility] CenterLmlmejtWSTQTOTCRB1516-81-17 16:31:00 Test Item Value Reference Range Interpretation Comments POC Activated Clotting Time (test code 153 s = POC Activated Clotting Time) [facility] CenterKvwlrdeFNAXNCOYHO8011-03-11 16:31:00 Test Item Value Reference Range Interpretation Comments POC Activated Clotting Time (test code 153 s = POC Activated Clotting Time) [place] 043791-04-09 16:31:00 Test Item Value Reference Range Interpretation Comments POC Activated Clotting Time (test code 153 s = POC Activated Clotting Time) [address]04-09 14:37:00 Test Item Value Reference Range Interpretation Comments POC Activated Clotting Time (test code 454 s = POC Activated Clotting Time) [address]04-09 14:37:00 Test Item Value Reference Range Interpretation Comments POC Activated Clotting Time (test code 454 s = POC Activated Clotting Time) [place] 043791-04-09 14:37:00 Test Item Value Reference Range Interpretation Comments POC Activated Clotting Time (test code 454 s = POC Activated Clotting Time) [facility] CenterWcpbimqIBNMVZECCM8964-02-70 14:37:00 Test Item Value Reference Range Interpretation Comments POC Activated Clotting Time (test code 454 s = POC Activated Clotting Time) [facility] CenterIdxpctnRRURHCRDHH0694-38-59 14:37:00 Test Item Value Reference Range Interpretation Comments POC Activated Clotting Time (test code 454 s = POC Activated Clotting Time) [facility] CenterSbgfcadGZNBRALLAA9996-16-93 14:37:00 Test Item Value Reference Range Interpretation Comments POC Activated Clotting Time (test code 454 s = POC Activated Clotting Time) [facility] CenterYyhujewXNHMXXZKTX2467-65-34 14:37:00 Test Item Value Reference Range Interpretation Comments POC Activated Clotting Time (test code 454 s = POC Activated Clotting Time) [facility] CenterAezmeotOPCETQUKJO9715-01-02 14:13:00 Test Item Value Reference Range Interpretation Comments POC Activated Clotting Time (test code 354 s = POC Activated Clotting Time) [facility] CenterVkvtnnsSYNAAZPTYU7136-98-39 14:13:00 Test Item Value Reference Range Interpretation Comments POC Activated Clotting Time (test code 354 s = POC Activated Clotting Time) [facility] CenterPaxipulKVVNDVVVNG5051-98-31 14:13:00 Test Item Value Reference Range Interpretation Comments POC Activated Clotting Time (test code 354 s = POC Activated Clotting Time) [facility] CenterLldydfwSMYXAVFXHO9775-65-35 14:13:00 Test Item Value Reference Range Interpretation Comments POC Activated Clotting Time (test code 354 s = POC Activated Clotting Time) [facility] CenterEpfmmtoPBRIQWQVUA8759-18-84 14:13:00 Test Item Value Reference Range Interpretation Comments POC Activated Clotting Time (test code 354 s = POC Activated Clotting Time) [facility] CenterNpxrxfnEPTRDZFVKQ9210-23-70 14:13:00 Test Item Value Reference Range Interpretation Comments POC Activated Clotting Time (test code 354 s = POC Activated Clotting Time) [facility] CenterNxlygrxYBCXDOWKAW9042-81-41 14:13:00 Test Item Value Reference Range Interpretation Comments POC Activated Clotting Time (test code 354 s = POC Activated Clotting Time) [facility] SHFSYEK1021-36-83 10:37:00Negative (08/29/20 5:37 AM) [facility] HDQQR6738-31-84 10:37:35388Nsfrhjmp [place] PANEL 2020-08-29 10:37:0028[facility]annCHE[facility] GGHDL0303-99-21 10:37:001.01[facility]annCHEM FOHJZ8678-34-72 10:37:95420Ctmodfuu HermannCHEM UMBDJ1064-38-32 10:37:003.8[facility]annCHEM IWUUF2907-47-18 10:37:22057Jvsosody [facility]annCHE[facility] IPFTF8116-44-08 10:37:0028[facility]annCHEM CQXIB3134-20-35 10:37:009.8 [facility]annCHE[facility] YNECG3818-01-68 10:37:0011.8[facility]annCHEM PANEL 2020-08-29 10:37:0059[facility]annCHEM ENIWC3305-94-64 10:37:002.9[facility] CitnmhvMIJCFMULRV0827-06-86 10:37:006.8[facility] SjydxykBOKYLUTFRK3838-23-88 10:37:004.47[facility] BxptckaSKUQWKOBXJ0364-95-36 10:37:0010.6[facility] [place] RKANNUQOIG5260-14-77 10:37:0034.0[facility] MbeeipmRVNVZAXTYZ4063-43-25 10:37:00 76.1[facility] MdcvgflZWUPKUIAYM6824-40-40 10:37:00 Test Item Value Reference Range Interpretation Comments MCH (test code = MCH) 23.8 pg 27.0-31.0 [facility] RtyisyzVSNJPWYVCD9693-07-18 10:37:0031.3[facility] HermannHEMATOLOGY 2020-08-29 10:37:0018.2[facility] YqnkcnmPHTFUCRVHF9939-12-88 10:37:18553Xhdracwr IsealamMQQVPGVJOS5336-82-57 10:37:007.5[facility] NuthncxGKBIEPHLUC3163-41-61 10:37:00 Test Item Value Reference Range Interpretation Comments PT (test code = PT) 12.8 s 12.0-14.7 [facility] ZfwiihsIQAOGNKKJN8821-82-13 10:37:00 Test Item Value Reference Range Interpretation Comments INR (test code = INR) 0.97 1 0.85-1.17 [facility] LyekpidYGQPFPLEXQ9261-57-76 10:37:00 Test Item Value Reference Range Interpretation Comments PTT (test code = PTT) 25.0 s 22.9-35.8 [facility] XllfldsAYFBLQIPEL3231-22-70 10:37:0070.5[facility] HermannHEMATOLOGY 2020-08-29 10:37:0018.8[facility] UqkleebUUUAXADHUL2078-24-06 10:37:009.5[facility] PmqylroPYVCQZNJAC4424-50-76 10:37:000.9[facility] TkwmjldWIOYRBUHGC7383-43-32 10:37:000.3[facility] LffgoemDQZWLGAJTU8680-00-28 10:37:004.8[facility] [place] AATJZMQMTJ0738-34-97 10:37:001.3[facility] QvzcxikBJXKANFEND8439-46-71 10:37:000.6 [facility] IiynwilIDYZCGTCDJ5478-36-41 10:37:000.1[facility] HermannHEMATOLOGY 2020-08-29 10:37:001+ *ABN*(08/29/20 5:37 AM)[facility] NrdhaclEJMLSLDYXB7412-80-00 10:37:00Not Detected (08/29/20 5:37 AM)[facility]annBLOOD BANK RESULTS 2020-08-29 10:37:00Negative (08/29/20 5:37 AM)[facility]annCHEM XRMIL4119-12-97 10:37:17521Jfzvlynf HermannCHEM CFOPW5085-36-77 10:37:0028[facility]annCHEM HQXDY7116-62-88 10:37:001.01[facility]annCHEM LLTUL1924-88-38 10:37:76247 [facility]annCHEM XOQHJ9341-09-83 10:37:003.8[facility] HermannCHEM PANEL 2020-08-29 10:37:20570Zpmdggrb HermannCHEM RGLLX5188-88-44 10:37:0028[facility]annCHEM EHBZN2861-23-76 10:37:009.8[facility]annCHEM YVHYQ0918-69-50 10:37:0011.8[facility] HermannCHEM OMYRE9429-58-38 10:37:0059[facility]annCHEM CTORU2694-02-22 10:37:002.9[facility] YagavwgVVUJUMZXHU3717-87-44 10:37:006.8 [facility] QfzlvwcEXFPKHKRIH2194-01-93 10:37:004.47[facility]annHEMATOLOGY 2020-08-29 10:37:0010.6[facility] OqvyzxjVYMWFTUATI5832-55-87 10:37:0034.0[facility] LirkdvqVGBOQWMXOD9068-99-96 10:37:0076.1[facility] LbpfsinBPSMQVHXDR8854-32-36 10:37:00 Test Item Value Reference Range Interpretation Comments MCH (test code = MCH) 23.8 pg 27.0-31.0 [facility] JljvysySCSDXCXFGW2604-93-02 10:37:0031.3[facility]annHEMATOLOGY 2020-08-29 10:37:0018.2[facility] DkfptaaBZHJRGNLDK3516-21-42 10:37:64364Avvpqpzd YcqejwrUIWVTMWYQN9353-54-18 10:37:007.5[facility] YtqhmwgFDBMTVARLE9580-82-10 10:37:00 Test Item Value Reference Range Interpretation Comments PT (test code = PT) 12.8 s 12.0-14.7 [facility] EkzfibpYYHMUUODVW8559-70-56 10:37:00 Test Item Value Reference Range Interpretation Comments INR (test code = INR) 0.97 1 0.85-1.17 [facility] CtyindiPJEPEKLSJT4536-20-90 10:37:00 Test Item Value Reference Range Interpretation Comments PTT (test code = PTT) 25.0 s 22.9-35.8 [facility] NnrqnkhMUBRSEDENO4378-17-06 10:37:0070.5[facility]annHEMATOLOGY 2020-08-29 10:37:0018.8[facility] AxzzriwJSSRIMKBXW1743-62-05 10:37:009.5[facility] AhlqzumXXPDCDGSZZ4783-25-10 10:37:000.9[facility] JdilutzEGZDCDQGNN9074-21-11 10:37:000.3[facility] UkidglnSULDYPCRIP3961-39-61 10:37:004.8[facility] [place] ZACVKGIUQX1791-36-91 10:37:001.3[facility] GybsytuQXQRSDUNJW0313-26-56 10:37:000.6 [facility] QuefbxjISIIUZBHNO6755-44-58 10:37:000.1[facility]annHEMATOLOGY 2020-08-29 10:37:001+ *ABN*(08/29/20 5:37 AM)[facility] EbfqstnYLDTHFYYIF1098-85-07 10:37:00Not Detected (08/29/20 5:37 AM)[facility]annBLOOD BANK RESULTS 2020-08-29 10:37:00Negative (08/29/20 5:37 AM)[facility]annCHEM XWAZE5067-33-37 10:37:20685Ujvykawm HermannCHEM FNFAR5884-75-09 10:37:0028[facility]annCHEM KPCZY1289-03-41 10:37:001.01[facility]annCHEM PLULR8563-31-11 10:37:86388 [facility]annCHEM OLPIH4816-09-32 10:37:003.8[facility] HermannCHEM PANEL 2020-08-29 10:37:39722Bhjlbgre HermannCHEM GPVSE5905-18-80 10:37:0028[facility] HermannCHEM MJGFH4787-70-32 10:37:009.8[facility] HermannCHEM QILWF4498-68-44 10:37:0011.8[facility] HermannCHEM LPCPL9873-30-60 10:37:0059[facility] HermannCHEM EVCCY9794-29-43 10:37:002.9[facility] WhuiattCCXFQIMSXT1820-37-59 10:37:006.8 [facility] HsteeklKTRTDKLMJI5069-32-47 10:37:004.47[facility]annHEMATOLOGY 2020-08-29 10:37:0010.6[facility] EapklokDLVCVNQGLF4603-72-67 10:37:0034.0[facility] SzhxfbiKUAZSCGLDY5785-55-41 10:37:0076.1[facility] AmhkvlhFHXLFWGLWW8808-23-84 10:37:00 Test Item Value Reference Range Interpretation Comments MCH (test code = MCH) 23.8 pg 27.0-31.0 [facility] UmlmbxlDVQAABGCDU5731-87-23 10:37:0031.3[facility] HermannHEMATOLOGY 2020-08-29 10:37:0018.2[facility] VqinqrdGZLJLZRMQO6952-74-59 10:37:12623Lyqfryuc HqwmkoiIOSZQZYEVX6181-48-37 10:37:007.5[facility] EqpyvvdXFNXUVUIVM0091-53-98 10:37:00 Test Item Value Reference Range Interpretation Comments PT (test code = PT) 12.8 s 12.0-14.7 [facility] RdibjspBVAATMBDIC9226-21-46 10:37:00 Test Item Value Reference Range Interpretation Comments INR (test code = INR) 0.97 1 0.85-1.17 [facility] YxgnpzcQLXYPUEIWB1142-82-56 10:37:00 Test Item Value Reference Range Interpretation Comments PTT (test code = PTT) 25.0 s 22.9-35.8 [facility] QxbaipiTALGRXWUFL2722-63-05 10:37:0070.5[facility] HermannHEMATOLOGY 2020-08-29 10:37:0018.8[facility] AqwmrceYVYASCKFDK6831-66-87 10:37:009.5[facility] KcgjbuoHVUZGVPQVH0991-58-21 10:37:000.9[facility] TjsecvqHEODDVCVAF2438-14-99 10:37:000.3[facility] DzcsgtwAQUOSAYCKY0418-91-16 10:37:004.8[facility] WDTCORGBSW0056-36-58 10:37:001.3[facility] TcfgwawTAKEEZPNIA3239-97-16 10:37:000.6 [facility] UswxtgbCLRLIZTWIT2034-15-80 10:37:000.1[facility] HermannHEMATOLOGY 2020-08-29 10:37:001+ *ABN*(08/29/20 5:37 AM)[facility] DzzxtknUWSUAQUXQK2637-14-43 10:37:00Not Detected (08/29/20 5:37 AM)[facility]annBLOOD BANK RESULTS 2020-08-29 10:37:00Negative (08/29/20 5:37 AM)[facility] HermannCHEM DWFLM8025-27-93 10:37:16627Loskwmyd HermannCHEM BQGKT3099-89-54 10:37:0028[facility] HermannCHEM PMMZS0719-15-76 10:37:001.01[facility] HermannCHEM ZEGKC6261-64-39 10:37:18805 [facility]annCHEM XBCGK5604-30-75 10:37:003.8[facility] HermannCHEM PANEL 2020-08-29 10:37:96413Cyhxfnko HermannCHEM CCKSB8900-51-03 10:37:0028[facility] HermannCHEM JKWWO0322-66-40 10:37:009.8[facility] HermannCHEM YGIDT6346-18-21 10:37:0011.8[facility] HermannCHEM JTNAH9841-86-48 10:37:0059[facility] HermannCHEM PFJIW6730-15-66 10:37:002.9[facility] FsaffsxXLVOMETDES0788-89-48 10:37:006.8 [facility] UhrvtedWSYWDCEPSD6253-30-83 10:37:004.47[facility] HermannHEMATOLOGY 2020-08-29 10:37:0010.6[facility] XiaggpwOZMJFDUPWX9393-83-85 10:37:0034.0[facility] EgxcvpwCGNBEXFWMB5713-54-32 10:37:0076.1[facility] GomyunsVSNSVSQJKL5198-96-20 10:37:00 Test Item Value Reference Range Interpretation Comments MCH (test code = MCH) 23.8 pg 27.0-31.0 [facility] LcmvzezNCVTTLUDAH6784-00-92 10:37:0031.3[facility] HermannHEMATOLOGY 2020-08-29 10:37:0018.2[facility] RxwttgoWOOKBCQIHS2991-35-74 10:37:18170Mhemwdby BpfwwppRFKHRZUKVJ0944-13-38 10:37:007.5[facility] YyjzlgsTEDBTPDGYR8558-94-70 10:37:00 Test Item Value Reference Range Interpretation Comments PT (test code = PT) 12.8 s 12.0-14.7 [facility] WdaqlevEDOZITBDPK2756-32-22 10:37:00 Test Item Value Reference Range Interpretation Comments INR (test code = INR) 0.97 1 0.85-1.17 [facility] OniezagHBBYSYGSKQ3255-48-49 10:37:00 Test Item Value Reference Range Interpretation Comments PTT (test code = PTT) 25.0 s 22.9-35.8 [facility] CaietmqZRJFVGVBRH2633-54-98 10:37:0070.5[facility] HermannHEMATOLOGY 2020-08-29 10:37:0018.8[facility] ObxyulsCHJWCOCDCJ1066-97-86 10:37:009.5[facility] AvjcukrFCXMDEAFYW8819-05-48 10:37:000.9[facility] ReeeqqiNNCRKZESVN3322-53-82 10:37:000.3[facility] YkhquvjFJKESMSKFJ2758-12-23 10:37:004.8[facility] BFECRPWOIC9169-80-02 10:37:001.3[facility] BaluxzpXNQWSLZENO3588-01-76 10:37:000.6 [facility] BninnfqIBWXPVZDJS7796-51-09 10:37:000.1[facility] HermannHEMATOLOGY 2020-08-29 10:37:001+ *ABN*(08/29/20 5:37 AM)[facility] AtgemupUDLGBQSXJZ1865-63-44 10:37:00Not Detected (08/29/20 5:37 AM)[facility] HermannBLOOD BANK RESULTS 2020-08-29 10:37:00Negative (08/29/20 5:37 AM)[facility]annCHEM RZGDL6937-74-99 10:37:88179Icrbbxdk HermannCHEM HJIVR5388-05-74 10:37:0028[facility] HermannCHEM RDOZJ8183-23-19 10:37:001.01[facility] HermannCHEM TOPXW8540-15-87 10:37:00900 [facility]annCHEM BZLBS5174-24-15 10:37:003.8[facility] HermannCHEM PANEL 2020-08-29 10:37:48037Ixilvsqr HermannCHEM BOWKV6310-89-82 10:37:0028[facility] HermannCHEM PHWFI9023-43-07 10:37:009.8[facility] HermannCHEM NFVTR5559-90-27 10:37:0011.8[facility] HermannCHEM TWPPY8546-27-03 10:37:0059[facility] HermannCHEM CDCZF5074-23-16 10:37:002.9[facility] AzrsouoKRDDOHDUTE6183-12-54 10:37:006.8 [facility] FlolyieENPKDPVXNH3412-86-88 10:37:004.47[facility] HermannHEMATOLOGY 2020-08-29 10:37:0010.6[facility] WlegwhsQWZTJXOJGG5711-68-03 10:37:0034.0[facility] ItvisjpFBFGAJWMCL4518-29-46 10:37:0076.1[facility] UpaeonwKAKCIDZVTM7590-30-70 10:37:00 Test Item Value Reference Range Interpretation Comments MCH (test code = MCH) 23.8 pg 27.0-31.0 [facility] WuzspycXBNRVFAKFR7532-35-19 10:37:0031.3[facility] HermannHEMATOLOGY 2020-08-29 10:37:0018.2[facility] DvzugejNMDNYYXYKN5199-05-54 10:37:75960Rrjndfag PncblilUEQVBPSJLV7365-58-48 10:37:007.5[facility] TrhmzmlNFQLFIPFJS5327-74-92 10:37:00 Test Item Value Reference Range Interpretation Comments PT (test code = PT) 12.8 s 12.0-14.7 [facility] MkmjafxAVQWQABMOD8737-86-60 10:37:00 Test Item Value Reference Range Interpretation Comments INR (test code = INR) 0.97 1 0.85-1.17 [facility] AadstypQVYRAMVWLM4800-55-70 10:37:00 Test Item Value Reference Range Interpretation Comments PTT (test code = PTT) 25.0 s 22.9-35.8 [facility] QagcrduXBTGHLDXPB7521-70-57 10:37:0070.5[facility]annHEMATOLOGY 2020-08-29 10:37:0018.8[facility] HpdujxeZACXHLJCSI5830-11-38 10:37:009.5[facility] BifkibsPIEDZWNCEB9762-24-83 10:37:000.9[facility] CpzvabrZUNSYBSNEX1374-99-97 10:37:000.3[facility] KmyxyqvOAZFAVQEXD1705-28-42 10:37:004.8[facility] [place] [facility] YNIDRIBKVE6574-84-88 10:37:001.3[facility] PnjqxbdIKIMMYAJOK9021-37-56 10:37:000.6 [facility] RnixntkJNAXBQAJVO3050-68-06 10:37:000.1[facility] HermannHEMATOLOGY 2020-08-29 10:37:001+ *ABN*(08/29/20 5:37 AM)[facility] FnphgyuHXPQNJPNIT7916-60-23 10:37:00Not Detected (08/29/20 5:37 AM)[facility] HermannBLOOD BANK RESULTS 2020-08-29 10:37:00Negative (08/29/20 5:37 AM)[facility] HermannCHEM KEHOI0604-28-12 10:37:16336Kwnpcfxp HermannCHEM GQDIZ1656-42-89 10:37:0028[facility] HermannCHEM AKFGF7318-04-45 10:37:001.01[facility] HermannCHEM KEYOJ7675-84-39 10:37:25405 [facility]annCHEM IVMQC0588-44-35 10:37:003.8[facility] HermannCHEM PANEL 2020-08-29 10:37:92818Gtrrofvr HermannCHEM KGAIM0156-12-00 10:37:0028[facility] HermannCHEM SWWKS8865-21-15 10:37:009.8[facility] HermannCHEM OQKNE4466-70-33 10:37:0011.8[facility] HermannCHEM ONUWD7457-96-11 10:37:0059[facility]annCHEM OGPYK8934-93-08 10:37:002.9[facility] CwdfgxaDLDTAJKUPS3415-11-00 10:37:006.8 [facility] AlqhqbqOTETYMUJMB5954-53-41 10:37:004.47[facility] HermannHEMATOLOGY 2020-08-29 10:37:0010.6[facility] JflinppZCWOTIRCWA3535-72-04 10:37:0034.0[facility] EmqdhcdHIBIXNVTAP2206-09-76 10:37:0076.1[facility] GpcexetMHKPCZUDPW3619-42-94 10:37:00 Test Item Value Reference Range Interpretation Comments MCH (test code = MCH) 23.8 pg 27.0-31.0 [facility] OyaffphMHRMCMBQJF9624-34-36 10:37:0031.3[facility] HermannHEMATOLOGY 2020-08-29 10:37:0018.2[facility] XnujtneLVMGTGDZXG2020-35-05 10:37:29395Srosfjbc HawpedvOMJFHWRXHU7442-14-63 10:37:007.5[facility] GgfxdybDEFCOTQCYC4847-86-76 10:37:00 Test Item Value Reference Range Interpretation Comments PT (test code = PT) 12.8 s 12.0-14.7 [facility] KkxsvjcAWQDHZONZB5530-66-73 10:37:00 Test Item Value Reference Range Interpretation Comments INR (test code = INR) 0.97 1 0.85-1.17 [facility] CnntknxMRCISQQJDH4030-85-90 10:37:00 Test Item Value Reference Range Interpretation Comments PTT (test code = PTT) 25.0 s 22.9-35.8 [facility] GgubqggDPAERSQHZP9340-21-49 10:37:0070.5[facility] HermannHEMATOLOGY 2020-08-29 10:37:0018.8[facility] ZsvvtopFCNXNNOEBO4949-79-06 10:37:009.5[facility] VjnnvjfSWZHXSTCMY5162-68-45 10:37:000.9[facility] KtxorgoZUNAKCCAAB7635-09-39 10:37:000.3[facility] BgsccbyZHXRMUHICM4409-52-88 10:37:004.8[facility] XEKHWADFZU3977-03-47 10:37:001.3[facility] DxuvjnqJFFGTFSQPA0619-12-86 10:37:000.6 [facility] OmgcxkaFJDYNFAFGZ1299-35-87 10:37:000.1[facility]annHEMATOLOGY 2020-08-29 10:37:001+ *ABN*(08/29/20 5:37 AM)[facility] PftuyvrESMVIAGYJF9510-45-53 10:37:00Not Detected (08/29/20 5:37 AM)[facility] RES[facility] 2020-08-29 10:37:00Negative (08/29/20 5:37 AM)[facility]annCHEM TJHKV8323-11-92 10:37:07008Lrzgonlm HermannCHEM YYINN0343-11-45 10:37:0028[facility]annCHEM XSQJF9518-27-85 10:37:001.01[facility]annCHEM RQHYM5348-22-85 10:37:21781 [facility]annCHE[facility] EHIJO6449-72-67 10:37:003.8[facility]annCHEM PANEL 2020-08-29 10:37:98998Flqjmkcd HermannCHEM ZMJIW2829-21-06 10:37:0028[facility]annCHEM BQUDD7785-59-75 10:37:009.8[facility]annCHEM JETPH9450-90-32 10:37:0011.8[facility]annCHEM NWADK3415-65-25 10:37:0059[facility]annCHEM PMJWP2857-61-71 10:37:002.9[facility] WxgmepyYUDEYVITHA7867-34-72 10:37:006.8 [facility] McdyibtUKTFVGVFHM1645-59-43 10:37:004.47[facility]annHEMATOLOGY 2020-08-29 10:37:0010.6[facility] AnecqcwKAOCNBTPKR5143-33-04 10:37:0034.0[facility] EfcczaaRIBLUPXGEE0970-08-12 10:37:0076.1[facility] JszqpvcAXRMQLALLQ8601-67-44 10:37:00 Test Item Value Reference Range Interpretation Comments MCH (test code = MCH) 23.8 pg 27.0-31.0 [facility] FvdkexuKTYDHMISMP0551-26-70 10:37:0031.3[facility]annHEMATOLOGY 2020-08-29 10:37:0018.2[facility] WatoyrvOCFTCTWGVS1285-33-07 10:37:60214Gzasmgfu SkvkmhuJVWONKODKD8956-11-82 10:37:007.5[facility] TitohgvMQPUUUBXCA4176-41-28 10:37:00 Test Item Value Reference Range Interpretation Comments PT (test code = PT) 12.8 s 12.0-14.7 [facility] LycgduqRYINBZYNFP7319-95-23 10:37:00 Test Item Value Reference Range Interpretation Comments INR (test code = INR) 0.97 1 0.85-1.17 [facility] ZbmsswvGOWQAYHYNL5753-68-94 10:37:00 Test Item Value Reference Range Interpretation Comments PTT (test code = PTT) 25.0 s 22.9-35.8 [facility] PzhvjkeSPPZTBUGSN6272-67-54 10:37:0070.5[facility]annHEMATOLOGY 2020-08-29 10:37:0018.8[facility] LcmknxuMGYUYZBHMC4765-97-78 10:37:009.5[facility] IhxeevdAPCZRYZRKC2219-56-90 10:37:000.9[facility] UxspbscCFMAOHYHZS6355-10-71 10:37:000.3[facility] HigzvoxXMXSHVCQUT6797-02-85 10:37:004.8[facility] YHHQTCCENC5005-69-20 10:37:001.3[facility] TiozektBDRZXJSXZJ0157-23-19 10:37:000.6 [facility] DugcyhrJWIBBHVUQT9693-69-71 10:37:000.1[facility]annHEMATOLOGY 2020-08-29 10:37:001+ *ABN*(08/29/20 5:37 AM)[facility] QfslixnCEFESBQRUY9081-98-21 10:37:00Not Detected (08/29/20 5:37 AM)[facility] 2020-08-27 23:14:39PROCEDURE: NM GASTRIC EMPTYING INDICATION: Abdominal bloating. TECHNIQUE: [...] rate, with complete emptying by 4 hours. [facility]-[id number] Interface, Radiology Results - 08/27/2020 6:17 PM CDT PROCEDURE: NM [...] rate, with complete emptying by 4 hours. [facility]-[id number] 2020-05-09 21:24:58 Test Item Value Reference Range Interpretation Comments Misc test HIV-1 RNA QUAL PCR name (test code = 2566) Misc test see note Human Immunodef iciency result (test Virus 1 (HIV-1) by code = 1730) Qualitative [employer]-M ediated Amplification ( TMA) [facility] test code [id number] HIV-1 by Qualit ative TMA See Note SOURCE/SPECIMEN PLASMA HIV-1 RNA, QUAL ITATIVE TMA HIV-1 RNA, QL TMA T UTILITY LOCATE TECHNICIAN Test Not Performed. Initial testing necessi tated a repeat, but the re was insufficient sa mple to perform repeat. SAMPLE LEFT FOR REPEAT IS 50 uL. NEED 1000 u L TO RUN REPEAT. This te st was performed using the APTIMA(R) HIV-R NA Qualitative Ass ay (Gen-Probe). ======== ======== Te st performed by:[employer] [place] [id number] KYLE (test HIVQL - HIV-1 RNA, code = KYLE) Qualitative TMA (FROZEN)ARUP Test Code: [id number]: plasma [facility] duplex venous upper [id number] 04:57:00 Vascular Ultrasound Laboratory Upper Extremity Venous Report [id number] [address] Pat.Name: LIO WATTS.ID: [id number] St.Date: 04/30/2020 Refer.MD: ELISEO ARCE MD Exam Time: 5:04:00 PM Study Type:UE Venous Age: 9 1955,65Y Sex: FEMALE Sonogrphr: IBIS Espinosa, SANKET Pat. Stat.:Inpatient Room: [place] [address] 2020 Tape Vol: EDGAR, CPT - 4: 13157 Echo Event ID:[id number] Order ID: [id number] Reason for Study:Arm swelling or pain, DVT [...] veins.*Preliminary result reported to ASHLEY Santos @ 3319 on 04/30/20.PHYSICIAN INTERPRETATION Venous examination of the both upper extremities and neck demonstratedno evidence of deep venous thrombosis. Total superficial vein thrombosis of the right basilic vein. FINDINGS: Signed 04/30/2020 10:57 PMFrancis Cabral MD, RPVIInterface, Radiology Results In - 04/30/2020 10:58 PM CST Vascular Ultrasound Laboratory Upper Extremity Venous Report [id number] [place] [address] Pat.Name: LIO WATTS Pat.ID: [id number] St.Date: 04/30/2020 Refer.MD: ELISEO ARCE MD Exam Time: 5:04:00 PM Study Type:UE Venous Age: 9 1955,65Y Sex: FEMALE Sonogrphr: Dwayne Macias, RVChristian, RCS Pat. Stat.:Inpatient Room: [place] [address] 2020 Tape Vol: , CPT - 4: 63988 Echo Event ID:[id number] Order ID: [id number] Reason for Study:Arm swelling or pain, DVT [...] veins.*Preliminary result reported to ASHLEY Santos @ 1982 on 04/30/20.PHYSICIAN INTERPRETATION Venous examination of the both upper extremities and neck demonstratedno evidence of deep venous thrombosis. Total superficial vein thrombosis of the right basilic vein. FINDINGS: ------Signed 04/30/2020 10:57 PMFrancis Cabral MD, [facility] Chest 2 [id number] 22:21:01EXAMINATION: XR CHEST 2 VW CLINICAL HISTORY: [...] cardiopulmonary process or active disease of the chest.[id number] HospitalMidline Unsuccessful [id number] 17:14:34ANicole zhang RN 04/30/2020 11:25 AMMidline Unsuccessful [...] place a PIV g.20 in lower arm .[facility] 1 Vw [id number] 16:20:14EXAMINATION: XR ABDOMEN 1 VW PORTABLE CLINICAL HISTORY: Abdominal pain post op COMPARISON: No prior IMPRESSION:1.Residual barium within the colon throughout. No small bowel obstruction noted. [facility]-2U [id number] Interface, Radiology Results Incoming - 04/30/2020 10:23 AM CST EXAMINATION: XR ABDOMEN 1 VW PORTABLECLINICAL HISTORY: Abdominalpain post opCOMPARISON: No priorIMPRESSION:1.Residual barium within the colon throughout. No smallbowel obstruction noted.[facility]-[id number] [id number] 20:57:57Carlee Malloy MD 04/28/2020 2:59 PMAirwayPerformed by: Carlee Malloy MDAuthorized by: Carlee Malloy MD Location: ORUrgency: ElectiveDifficult Airway: No Anesthesiologist: Kvng Malloy MDResident/INSPECTOR ALIGNING/AA: Allan Morocho DOPerformed by: resident/INSPECTOR ALIGNING/AAPreoxygenated cluo128% O2: Yes C- spine Precautions Maintained Throughout: [...] No Number of Attempts at Approach: 1 [facility]agogueMon[facility] CenterTransthoracic Echocardiogram Complete, (w Contrast, Strain and 3D if needed)2020-04-28 00:20:00 Echocardiography Report [id number] [place] [id number] Pat.Name: LIO WATTS Marta.ID: [id number] .Date: 04/27/2020 Refer.MD: ELISEO ARCE MD Exam Time: 2:21:00 PM Study Type:Routine Echo Height: 64in Weight: 213lb BSA: 2.01 m2 Age: 9 1955,65Y Sex: FEMALE BP: 128/89 HR: 102 bpm Sonogrphr: SANKET Perkins Pat. Stat.:Inpatient Room: [facility] Study Status:Final Echo Event ID:[id number] Order ID: [id number] Reason for Study:Atrial FibrillationHistory / Clinical:Hypertension Procedures: [...] estimate PA systolic pressure. MEASUREMENTS: 2DParasternal Long [place] Ao An 2.2 cm LVPWd 1 cm [...] LVOT CI 3.1 l/m/m2 Signed 04/27/2020 06:20 CLIVEMomario Martin MDInterface, Radiology Results In - 04/27/2020 6:21 PM CST Echocardiography Report [id number] [facility] [address], [place] [address] Pat.Name: LIO WATTS.ID: [id number] .Date: 04/27/2020 Refer.MD: ELISEO ARCE MD Exam Time: 2:21:00 PM Study Type:Routine Echo Height: 64in Weight: 213lb BSA: 2.01 m2 Age: 9 1955,65Y Sex: FEMALE BP: 128/89 HR: 102 bpm Sonogrphr: Julieta Wilsl [facility] Pat. Stat.:Inpatient Room: [facility] Study Status:Final Echo Event ID:[id number] Order ID: [id number] Reason for Study:Atrial FibrillationHistory / Clinical:Hypertension Procedures: [...] PA systolic pressure.- MEASUREMENTS: ---- 2DParasternal Long [place] Ao An 2.2 cm LVPWd 1 cm [...] LVOT CI 3.1 l/m/m2 Signed 04/27/2020 06:20 PMWilliams[facility] Rosauraunc [facility]ohn[facility] claytonNicoCHRISTUS [facility] Esophagram Double [id number] 18:07:12EXAMINATION: [place] ESOPHAGRAM DOUBLE CONTRAST CLINICAL HISTORY: [...] herniaCOMPARISON: Limited comparison with chest CT from [facility]2019TECHNIQUE: Esophagram was performed with effervescent granules and barium.FLUOROSCOPIC TIME: 1.5 minutes.NUMBER OF IMAGES: 9 fluoroscopic images.IMPRESSION:No strictures. Normal esophageal mucosa.Nonspecific esophageal dysmotility, with mildly delayed esophageal emptying and scatterednonpropulsive tertiary contraction waves.There is a moderately sized type III hiatal hernia. There was mild spontaneous gastroesophageal reflux.[id number] HospitalCT [facility] Wo Contrast Abdomen Wo Contrast Pelvis Wo [id number] 15:23:55EXAMINATION: CT CHEST WO CONTRAST ABDOMEN WO [...] chronic and incidental findings as detailed above. [facility]-[id number] Dictated and approved by radiology resi dent/fellow: Jenna Valenzuela M.D. I, Medhat Flowers Jr., M.D., personally reviewed the images and resident's/fellow's findings and agree with the final report.[facility][1], Radiology Results Incoming - 04/21/2020 9:27 AM [...] aorta.4.Additional chronic and incidental findings as detailed above.[facility]-[id number] and approved by resident physician in radiology/fellow: Jenna Valenzuela M.D.I, Medhat Flowers Jr., M.D., personally reviewed the images and resident's/fellow's findings and agree with the final report. [facility] HospitalDEX, SADIE, TV,PCR, IN [id number] 15:38:00 Test Item Value Reference Range Interpretation Comments FT (test code = CHTR) Not detected (qualifier Not Detected N value) FT (test code = Not detected (qualifier Not Detected N NGONO) value) FT (test code = TRVG) Not detected (qualifier Not Detected N value) URINALYSIS WITH [id number] 10:57:00 Test Item Value Reference Range Interpretation Comments Color (test code = UCOLR) Dk. Yellow Clarity (test code = UCLAR) Hazy Glucose (test code = UGLUC) NEGATIVE NEGATIVE N Bilirubin (test code = UBILI) NEGATIVE NEGATIVE N Ketones (test code = UKET) NEGATIVE NEGATIVE N Specific [place] (test code = 1.025 1.005-1.030 A USPGR) [...]
== END 2021-03-28 00:11 | disposition home or self-care (01) ==
LOC: ER 20:23
DX: J44.1 Chronic obstructive pulmonary disease with (acute) exacerbation (principal); I10 Essential (primary) hypertension; F31.9 Bipolar disorder, unspecified; Z21 Asymptomatic human immunodeficiency virus [HIV] infection status; Z79.01 Long term (current) use of anticoagulants; Z88.1 Allergy status to other antibiotic agents; Z88.2 Allergy status to sulfonamides; Z88.8 Allergy status to other drugs, medicaments and biological substances
CPT/HCPCS: 36415; 71045; 80048; 80076; 83735; 83880; 84484; 85025; 85610; 93005; 96374; 96375; 99284; J1940; J2270; J2405; J2930

== ENCOUNTER 2021-03-29 00:11 | Inpatient (IN) | payer OTHER ==
[2021-03-29] MEDS ORDERED: BENZONATATE 100 MG CAP PO ONE (00:56)
[2021-03-29 01:26] LABS: Absolute Lymphocytes (CBC) 0.9 K/uL (0.7-4.9); Basophils % 0.1 % (0-1.3); MPV 7.1 fL (7.6-11.3)
[2021-03-29 01:29] LABS: Hematocrit 30.3 % (36.0-45.0); Lymphocytes % 6.2 % (15.3-44.8); Protime INR 1.14; RBC Red Blood Cell Count 4.36 M/uL (3.86-4.86)
[2021-03-29 01:41] LABS: Urine Specific Gravity 1.025 (1.005-1.030)
[2021-03-29 01:42] LABS: SARS-COV-2 RT PCR NEGATIVE (NEGATIVE)
[2021-03-29 01:44] LABS: Urine Bacteria >50 /HPF (<20); Urine Mucus 1+ /HPF (NONE SEEN); Urine RBC <5 /HPF (NONE SEEN)
[2021-03-29 01:51] LABS: Anisocytosis 1+; Blood Morphology Comment NOTED (NOT SEEN); Platelet Estimate ADEQ; White Blood Cell Scan OK (OK)
[2021-03-29 01:52] LABS: Hypochromasia 2+; Ovalocytes 2+; Stomatocytes 2+; Teardrop Cell 1+
[2021-03-29 01:54] LABS: ALT/SGPT 64 U/L (12-78); AST/SGOT 32 U/L (15-37); Albumin 2.9 g/dL (3.4-5.0); Alkaline Phosphatase 57 U/L (45-117); BUN Blood Urea Nitrogen 44 mg/dL (7-18); Bicarbonate 31 mmol/L (21-32); Bilirubin Direct 0.1 mg/dL (0-0.2); Bilirubin Total 0.3 mg/dL (0.2-1.0); Glucose Level 155 mg/dL (74-106); Magnesium 2.3 mg/dL (1.8-2.4); NT PRO-BNP 1447 pg/mL (<125); Potassium 3.4 mmol/L (3.5-5.1); Protein, Total 6.5 g/dL (6.4-8.2); Sodium Level 146 mmol/L (136-145); Troponin (Emerg Dept Use Only) < 0.02 ng/mL (0.0-0.045)
[2021-03-29 02:01] LABS: Urine Blood Negative (Negative); Urine Glucose Negative (Negative); Urine Protein Negative (Negative)
--- NOTE | 2021-03-29 02:29 | EDPHYS ---
Physician Documentation [facility] Name: Marjan Fleming Age: 66 yrs Sex: Female : 1955 Arrival Date: 03/29/2021 Time: 00:17 Bed 13 Private MD: ED Physician Hans Dawson HPI: 03/29 00:45 This 66 yrs old Female presents to ER via Wheelchair with complaints of Low cp Back Pain - Severe, Breathing Difficulty, Productive Cough, Chest Pain > 30 y/o. 00:45 The patient presents with pain that is chronic, with no known mechanism of injury. cp 00:45 The pain does not radiate. cp 00:45 The patient has shortness of breath at rest. cp 00:45 Duration: The symptoms are continuous, and are steadily getting worse. Associated signs cp and symptoms: Pertinent positives: chest pain, productive cough, Pertinent negatives: fever, vomiting. Historical: - Allergies: 00:40 Bactrim DS; dc2 00:40 butorphanol tartrate; dc2 00:40 Fentanyl; dc2 00:40 Reglan; dc2 00:40 Stadol; dc2 00:40 sulfamethoxazole (bulk); dc2 00:40 TRIMETHOPRIM; dc2 - PMHx: 00:29 esophageal varices; COPD; Hepatitis; Hypertension; HIV; Migraines; Panic Attacks; em 00:40 Anxiety; Atrial Fib; Chronic pain; Bipolar disorder; dc2 - PSHx: 00:29 Appendectomy; Bilateral shoulder repair; Cholecystectomy; hernia repair; em - Immunization history:: Client reports receiving the 2nd dose of the Covid vaccine. - Social history:: Smoking status: Patient denies any tobacco usage or history of. ROS: 00:50 Constitutional: Negative for body aches, fever, poor PO intake. cp 00:50 Cardiovascular: Positive for chest pain, Negative for edema, palpitations. cp 00:50 Respiratory: Positive for cough, "sounds productive", shortness of breath, at rest. 00:50 Abdomen/GI: Negative for abdominal pain, vomiting, diarrhea, constipation. cp 00:50 Eyes: Negative for injury, pain, redness, and discharge. cp 00:50 Neuro: Negative for altered mental status, dizziness, headache, weakness. 00:50 All other systems are negative. Exam: 00:35 ECG was reviewed by the Attending Physician. cp 00:55 Constitutional: The patient appears in no acute distress, alert, awake, cp non-diaphoretic, non-toxic, well developed, well nourished, obese. 00:55 Head/Face: Normocephalic, atraumatic. cp 00:55 Eyes: Periorbital structures: appear normal, Conjunctiva: normal, no exudate, no injection, Sclera: no appreciated abnormality, Lids and lashes: appear normal, bilaterally. 00:55 ENT: External ear(s): are unremarkable, Nose: is normal, Mouth: Lips: moist, Oral mucosa: pink and intact, moist, Posterior pharynx: Airway: no evidence of obstruction, patent. 00:55 Neck: ROM/movement: is normal, is supple, without pain, no range of motions limitations, no meningismus. 00:55 Chest/axilla: Inspection: normal. 00:55 Cardiovascular: Rate: normal, Rhythm: regular, Edema: is not appreciated, JVD: is not appreciated. 00:55 Respiratory: the patient does not display signs of respiratory distress, Respirations: labored breathing, that is moderate, intercostal retractions, are absent, Breath sounds: decreased breath sounds, that are moderate, diffuse, stridor, is not appreciated, wheezing: that is mild, is heard diffusely. 00:55 Abdomen/GI: Inspection: abdomen appears normal, Bowel sounds: active, all quadrants, Palpation: abdomen is soft and non-tender, in all quadrants. 00:55 Back: pain, that is moderate, ROM is painful, with all movement. 00:55 Skin: cellulitis, is not appreciated, no rash present. 00:55 Neuro: Orientation: to person, place \\T\\ time. Mentation: is normal, Motor: moves all fours, strength is normal, Sensation: no obvious gross deficits. Vital Signs: 00:28 BP 167 / 86; Pulse 78; Resp 22; Temp 97.9; Pulse Ox 88% on R/A; Weight 102.06 kg; em Height 5 ft. 4 in. (162.56 cm); Pain 10/10; 01:30 BP 175 / 93; Pulse 79; Resp 21; Pulse Ox 100% on Nebulizer Mask; Pain 8/10; dc2 02:30 BP 154 / 77; Pulse 59; Resp 22; Pulse Ox 99% ; Pain 5/10; dc2 00:28 Body Mass Index 38.62 (102.06 kg, 162.56 cm) em 00:28 placed NC at 2 LPM em MDM: 00:37 Patient medically screened. cp 02:30 Data reviewed: vital signs, nurses notes, lab test result(s), EKG, radiologic studies, cp plain films. 02:30 Test interpretation: by ED physician or midlevel provider: ECG, plain radiologic cp studies. Counseling: I had a detailed discussion with the patient and/or guardian regarding: the historical points, exam findings, and any diagnostic results supporting the discharge/admit diagnosis, lab results, radiology results, the need for further work-up and treatment in the hospital. Physician consultation: Checo DHILLON was called at 02:30, was contacted at 02:30, regarding admission, to the telemetry unit. patient's condition. 03/29 00:42 Order name: Basic Metabolic Panel 03/29 00:42 Order name: CBC with Diff; Complete Time: 01:01 cp 03/29 01:01 Interpretation: Normal except: WBC 14.70; HGB 9.1; HCT 30.3; MCV 69.7; MCH 20.9; MCHC cp 30.1; RDW 19.4; MPV 7.1; ADE% 87.6; LYM% 6.2; NEUT A 12.9. 03/29 00:42 Order name: LFT's; Complete Time: 01:01 cp 03/29 01:24 Interpretation: Normal except: ALB 2.9; GLOB 3.6; A/G 0.8. cp 03/29 00:42 Order name: Magnesium; Complete Time: 01:01 cp 03/29 00:42 Order name: NT PRO-BNP; Complete Time: 01:01 cp 03/29 00:42 Order name: PT-INR; Complete Time: 01:01 cp 03/29 00:42 Order name: Troponin (emerg Dept Use Only); Complete Time: 01:01 cp 03/29 00:42 Order name: Urine Microscopic Only; Complete Time: 01:52 cp 03/29 01:52 Interpretation: Normal except: UWBC 5-10; UBACT >50; SQEPI 5-10. cp 03/29 00:43 Order name: Basic Metabolic Panel; Complete Time: 01:01 EDAZ 03/29 01:25 Interpretation: Normal except: NA 146; K 3.4; CL 108; GLUC 155; BUN 44; GFR 50. cp 03/29 01:52 Order name: CBC Smear Scan; Complete Time: 01:01 EDMS 03/29 01:04 Order name: COVID-19/FLU A+B/RSV; Complete Time: 01:52 EDMS 03/29 01:13 Order name: Urine Dipstick-Ancillary EDAZ 03/29 00:42 Order name: XRAY Chest (1 view) cp 03/29 00:42 Order name: EKG; Complete Time: 00:43 cp 03/29 02:01 Order name: Urine Culture EDMS 03/29 02:27 Order name: Procalcitonin cp 03/29 02:27 Order name: Lactate cp 03/29 02:27 Order name: Blood Culture Adult (2) cp 03/29 02:48 Order name: CONS Physician Consult; Complete Time: 03:05 EDAZ 03/29 00:42 Order name: Cardiac monitoring; Complete Time: 00:50 cp 03/29 00:42 Order name: EKG - Nurse/Tech; Complete Time: 00:43 cp 03/29 00:42 Order name: IV Saline Lock; Complete Time: 01:20 cp 03/29 00:42 Order name: Labs collected and sent; Complete Time: 01:20 03/29 00:42 Order name: O2 Per Protocol; Complete Time: 00:50 03/29 00:42 Order name: O2 Sat Monitoring; Complete Time: 00:50 03/29 00:42 Order name: Urine Dipstick-Ancillary (obtain specimen) cp EC:35 Rate is 69 beats/min. Rhythm is regular. HI interval is normal. QRS interval is normal. cp QT interval is normal. T waves are Inverted in lead aVR. Interpreted by me. Reviewed by me. Administered Medications: 01:00 Drug: Tessalon Perle (benzonatate) 200 mg Route: PO; dc2 02:52 Follow up: Response: Other dc2 01:00 Drug: Albuterol - atroVENT (ipratropium) (3:1) (2.5 mg - 0.5 mg) 3 ml Route: Nebulizer; dc2 01:35 Follow up: Response: Wheezing diminished dc2 01:10 Drug: morphine 4 mg Route: IVP; Site: Other; dc2 02:00 Follow up: Response: Pain is decreased dc2 02:24 CANCELLED (Physician Discretion): LevaQUIN (levofloxacin) 500 mg PO once cp 02:47 Drug: Potassium Effervescent Tablet 50 mEq Route: PO; dc2 03:05 Follow up: Response: No adverse reaction dc2 02:47 Drug: SOLU-Medrol (methylPrednisoLONE) 80 mg Route: IVP; Site: Other; dc2 03:05 Follow up: Response: No adverse reaction dc2 03:04 Drug: LevaQUIN (levofloxacin) 750 mg Route: IVPB; Rate: 100 ml/hr; Infused Over: 2 hrs; dc2 Site: Other; Delivery: Primary tubing; 04:11 Follow up: IV Status: Infusion continued upon admission; IV Intake: 100ml dc2 Disposition: 06:16 Co-signature as Attending Physician, Hans Dawson MD. [facility] Disposition Summary: 03/29/21 02:29 Hospitalization Ordered Hospitalization Status: Inpatient Admission cp Provider: Brandon Shin cp Location: Telemetry/[facility] (Inpatient) cp Condition: Stable cp Problem: new cp Symptoms: have improved cp Bed/Room Type: Standard cp Room Assignment: 212(03/29/21 03:37) mw Diagnosis - COPD/ Chronic obstructive pulmonary disease with acute lower respiratory infection cp - Shortness of breath cp Forms: - Medication Reconciliation Form cp - SBAR form cp Signatures: Dispatcher [employer] Gracia Flores RN RN mw Lam, Pin, MD MD [facility] Venu Ortega RN RN em Page, Corey, PA PA cp Jes, ASHLEY Liang RN dc2 Corrections: (The following items were deleted from the chart) 00 00:29 Allergies: Bactrim DS; em dc2 : 00:29 Allergies: butorphanol tartrate; em dc2 00:29 Allergies: Fentanyl; em dc2 : 00:29 Allergies: metoclopramide HCl; em dc2 : 00:29 Allergies: Reglan; em dc2 : 00:29 Allergies: Stadol; em dc2 : 00:29 Allergies: sulfamethoxazole (bulk); em dc2 : 00:29 Allergies: TRIMETHOPRIM; em dc2 00:29 PMHx: Anxiety; em dc2 00:29 PMHx: Atrial Fib; em dc2 00:29 PMHx: Chronic pain; em dc2 00:29 PMHx: Bipolar disorder; em dc2 : 00:43 CORONAVIRUS+MR.LAB.BRZ ordered. EDMS EDMS 01:04 00:43 Influenza Screen (A \\T\\ B)+BA.LAB.BRZ ordered. EDMS EDMS 01:19 01:03 Chest For PE Angio+CT.RAD.BRZ ordered. EDMS EDMS : 01:03 Abdomen Pelvis W Con+CT.RAD.BRZ ordered. EDMS EDMS 02:24 01:55 LevaQUIN (levofloxacin) 500 mg PO once ordered. cp cp 03:37 02:29 cp mw
--- NOTE | 2021-03-29 02:29 | ER ---
Nurse's Notes [facility] Name: Marjan Fleming Age: 66 yrs Sex: Female : 1955 Arrival Date: 03/29/2021 Time: 00:17 Bed 13 Private MD: Diagnosis: COPD/ Chronic obstructive pulmonary disease with acute lower respiratory infection;Shortness of breath Presentation: 03/29 00:28 Chief complaint: Patient states: chest pain, cough and difficulty breathing, also em reports back pain and trouble walking, was seen here yesterday for the same thing. Coronavirus screen: Vaccine status: Patient reports receiving the 2nd dose of the covid vaccine. Ebola Screen: Patient negative for fever greater than or equal to 101.5 degrees Fahrenheit, and additional compatible Ebola Virus Disease symptoms Patient denies exposure to infectious person. Patient denies travel to an Ebola-affected area in the 21 days before illness onset. No symptoms or risks identified at this time. Initial Sepsis Screen: Does the patient meet any 2 criteria? No. Patient's initial sepsis screen is negative. Does the patient have a suspected source of infection? No. Patient's initial sepsis screen is negative. Risk Assessment: Do you want to hurt yourself or someone else? Patient reports no desire to harm self or others. Onset of symptoms was March 29, 2021. 00:28 Method Of Arrival: Wheelchair em 00:28 Acuity: BLAYNE 3 em Triage Assessment: 00:30 Respiratory: Onset: The symptoms/episode began/occurred " I always am short of breath:" dc2 Pt uses home Oxygen , the patient has moderate shortness of breath Parent/caregiver reports the patient having shortness of breath cough that is non-productive, Giving self neb treatment before arriving. Historical: - Allergies: 00:40 Bactrim DS; dc2 00:40 butorphanol tartrate; dc2 00:40 Fentanyl; dc2 00:40 Reglan; dc2 00:40 Stadol; dc2 00:40 sulfamethoxazole (bulk); dc2 00:40 TRIMETHOPRIM; dc2 - PMHx: 00:29 esophageal varices; COPD; Hepatitis; Hypertension; HIV; Migraines; Panic Attacks; em 00:40 Anxiety; Atrial Fib; Chronic pain; Bipolar disorder; dc2 - PSHx: 00:29 Appendectomy; Bilateral shoulder repair; Cholecystectomy; hernia repair; em - Immunization history:: Client reports receiving the 2nd dose of the Covid vaccine. - Social history:: Smoking status: Patient denies any tobacco usage or history of. Screenin:30 Abuse screen: Denies threats or abuse. Denies injuries from another. Nutritional dc2 screening: No deficits noted. Tuberculosis screening: No symptoms or risk factors identified. Never had TB. Fall Risk Fall in past 12 months (25 points). Secondary diagnosis (15 points) No IV (0 pts). Ambulatory Aid- None/Bed Rest/Nurse Assist (0 pts). Gait- Weak (10 pts.). Mental Status- Oriented to own ability (0 pts). Total Hauser Fall Scale indicates High Risk Score (45 or more points). Assessment: 00:30 General: Appears uncomfortable, obese, unkempt, Behavior is cooperative, anxious. Pain: dc2 Complains of pain in lower back / chronic pain but has worsened in the last couple of days, denies trauma or injury. 00:30 Neuro: No deficits noted. Level of Consciousness is awake, alert, obeys commands, dc2 confused, Oriented to person, place, time, situation. Cardiovascular: No deficits noted. Denies chest pain. Respiratory: Reports shortness of breath at rest on exertion Airway is patent Respiratory effort is shallow, Respiratory pattern is regular, symmetrical, Breath sounds with wheezes bilaterally. GI: No deficits noted. No signs and/or symptoms were reported involving the gastrointestinal system. Abdomen is round non-distended, Bowel sounds present X 4 quads. Patient currently denies abdominal pain, nausea, vomiting. : No signs and/or symptoms were reported regarding the genitourinary system. Derm: Skin is fragile, is thin, with poor turgor has skin tears on left elbow, right forearm Bruising that is green, yellow, on throughout upper extremitites. Musculoskeletal: No deficits noted. Reports weakness in bilateral legs and reports unable to walk. 01:00 Cardiovascular: Rhythm is sinus rhythm. dc2 01:15 Reassessment: Instruct on pain meds, Morphine 4mg IVP to be admistered, pt replies " I dc2 want it undiluted and fast" . This nurse reply to request " I do not give pain meds undiluted or fast ". Pt replies " Then I want a new nurse. Charge nurse and Dr. Dawson informed. Returned to room to explain that pt could have tylenol , pt apologizes and states that I can continue to be her nurse. Medication administered as ordered and given undiluted and over 3 minutes. Pt tolerate well. 03:53 Reassessment: Speak to Oksana about report, states Jesus is finishing up bathing a pt and dc2 will call back for report. Vital Signs: 00:28 BP 167 / 86; Pulse 78; Resp 22; Temp 97.9; Pulse Ox 88% on R/A; Weight 102.06 kg; em Height 5 ft. 4 in. (162.56 cm); Pain 10/10; 01:30 BP 175 / 93; Pulse 79; Resp 21; Pulse Ox 100% on Nebulizer Mask; Pain 8/10; dc2 02:30 BP 154 / 77; Pulse 59; Resp 22; Pulse Ox 99% ; Pain 5/10; dc2 00:28 Body Mass Index 38.62 (102.06 kg, 162.56 cm) em 00:28 placed NC at 2 LPM em ED Course: 00:17 Patient arrived in ED. wm 00:23 Azul Andre, ASHLEY is Primary Nurse. dc2 00:29 Triage completed. em 00:29 Arm band placed on. em 00:30 No provider procedures requiring assistance completed. dc2 00:35 Justus Neil PA is PHCP. cp 00:35 Hans Dawson MD is Attending Physician. cp 00:35 Patient has correct armband on for positive identification. Allergy band placed. Fall dc2 risk band placed. Placed in gown. Bed in low position. Call light in reach. Side rails up X 1. senior infrastructure engineer on. Pulse ox on. NIBP on. 01:20 Basic Metabolic Panel Sent. dc2 01:21 CBC with Diff Sent. dc2 01:21 LFT's Sent. dc2 01:21 Magnesium Sent. dc2 01:21 NT PRO-BNP Sent. dc2 01:21 PT-INR Sent. dc2 01:21 Troponin (emerg Dept Use Only) Sent. dc2 01:21 Basic Metabolic Panel Sent. dc2 02:28 Brandon Shin is Hospitalizing Provider. cp 02:32 IV Flushed right saline lock right breast dc2 03:04 Blood Culture Adult (2) Sent. dc2 03:04 Lactate Sent. dc2 03:04 Procalcitonin Sent. dc2 Administered Medications: 01:00 Drug: Tessalon Perle (benzonatate) 200 mg Route: PO; dc2 02:52 Follow up: Response: Other dc2 01:00 Drug: Albuterol - atroVENT (ipratropium) (3:1) (2.5 mg - 0.5 mg) 3 ml Route: Nebulizer; dc2 01:35 Follow up: Response: Wheezing diminished dc2 01:10 Drug: morphine 4 mg Route: IVP; Site: Other; dc2 02:00 Follow up: Response: Pain is decreased dc2 02:24 CANCELLED (Physician Discretion): LevaQUIN (levofloxacin) 500 mg PO once cp 02:47 Drug: Potassium Effervescent Tablet 50 mEq Route: PO; dc2 03:05 Follow up: Response: No adverse reaction dc2 02:47 Drug: SOLU-Medrol (methylPrednisoLONE) 80 mg Route: IVP; Site: Other; dc2 03:05 Follow up: Response: No adverse reaction dc2 03:04 Drug: LevaQUIN (levofloxacin) 750 mg Route: IVPB; Rate: 100 ml/hr; Infused Over: 2 hrs; dc2 Site: Other; Delivery: Primary tubing; 04:11 Follow up: IV Status: Infusion continued upon admission; IV Intake: 100ml dc2 Intake: 04:11 IV: 100ml; Total: 100ml. dc2 Outcome: 02:29 Decision to Hospitalize by Provider. cp 04:11 Admitted to Tele accompanied by nurse, via wheelchair, room 212, Report called to alessandra Lee RN 04:11 Condition: improved 04:12 Patient left the ED. dc2 Signatures: Venu Ortega RN RN em Justus Neil PA PA cp Nieves Isaacs Azul Andre RN RN dc2 Corrections: (The following items were deleted from the chart) 00:30 00:28 BP 167 / 86; Pulse 78bpm; Resp 22bpm; Pulse Ox 88% RA; Temp 97.9F; 102.06 kg; em Height 5 ft. 4 in.; BMI: 38.6; Pain 10/10; em 00:44 00:29 Allergies: Bactrim DS; em dc2 00:44 00:29 Allergies: butorphanol tartrate; em dc 00:29 Allergies: Fentanyl; em dc 00: Allergies: metoclopramide HCl; dc 00: Allergies: Reglan; em dc 00:29 Allergies: Stadol; em dc 00:29 Allergies: sulfamethoxazole (bulk); em dc 00: Allergies: TRIMETHOPRIM; dc 00:29 PMHx: Anxiety; 00:29 PMHx: Atrial Fib; dc 00:29 PMHx: Chronic pain; dc 00:29 PMHx: Bipolar disorder; dc06 23: 00:51 Influenza Screen (A \\T\\ B)+BA.LAB.BRZ drawn and sent. dc2 EDMS 01: 00:51 CORONAVIRUS+MR.LAB.BRZ drawn and sent. vt2 EDMS
[2021-03-29] MEDS ORDERED: METHYLPREDNISOLONE 40 MG INJ ONE (02:44)
[2021-03-29] MEDS ORDERED: POTASSIUM 25 MEQ EFFERV TAB ONE (02:44)
[2021-03-29] MEDS ORDERED: Levofloxacin 750mg IV 750 MG/150 ML BAG IV ONE (02:45)
--- NOTE | 2021-03-29 04:03 | P.HP ---
Certification for Inpatient Patient admitted to: Inpatient With expected LOS: <2 Midnights Patient will require the following post-hospital care: None Practitioner: I am a practitioner with admitting privileges, knowledge of patient current condition, hospital course, and medical plan of care. Services: Services provided to patient in accordance with Admission requirements found in Title 42 Section 412.3 of the Code of Federal Regulations <CesarCheco Christian - Last Filed: 03/29/21 04:05> Patient History Date of Service: 03/29/21 Reason for admission: COPD exacerbation History of Present Illness: Ms. Fleming is a 66 yo F with COPD, CAD, HTN, chronic afib on anticoagulation who presents with one week of increased SOB and STEPHENS. She reports cough productive of yellow sputum, wheezing, chest pain, chills, nausea. She is normally on 2L home O2 and has had to increase to 3L. She has had no relief of symptoms with her nebulizer treatments at home. She also reports she can barely walk and has had increasing back pain and leg weakness. Has received breathing treatments, steroids, and antibiotics in the ED. - Past Medical/Surgical History Diabetic: No -: HIV diag ~ [address] Yohan Cardenas in [place] -: CAD -: Bipolar disorder Dr Krause in [place] -: Hypertension -: COPD -: Tobacco abuse -: former Alcohol abuse -: Anemia likely of chronic disease -: Hyperlipidemia -: GERD with hiatal hernia -: Atrial fibrillation on chronic anticoagulation therapy -: Appendectomy -: Cholecystectomy -: left and right shoulder rotator cuff repair -: Right foot repair -: Right shoulder replacement -: left shoulder rotated cuff -: hiatal hernia repair may 2020 Psychosocial/ Personal History: She lives at home. She is not . - Family History Father -: Heart disease, Kidney disease Mother -: Other (see notes) Notes: Epilepsy, chronic pain - Social History Smoking Status: Former smoker Alcohol use: No CD- Drugs: No Caffeine use: Yes Place of Residence: Home <Checo Guerrero - Last Filed: 03/29/21 04:05> Date of Service: 03/29/21 <Liz Qureshi - Last Filed: 03/30/21 01:00> Allergies fentanyl Allergy (Severe, Verified 07/30/20 21:09) Hives butorphanol tartrate [From Stadol] Allergy (Verified 07/30/20 21:09) confusion metoclopramide HCl [From Reglan] Allergy (Verified 07/30/20 21:09) Shortness of breath sulfamethoxazole [From Bactrim] Allergy (Verified 07/30/20 21:09) Hives/Rash trimethoprim [From Bactrim] Allergy (Verified 07/30/20 21:09) Hives/Rash Bactrim DS Allergy (Intermediate, Uncoded 07/30/20 21:09) Nausea/Vomiting Home Medications: Raltegravir Potassium [Isentress] 400 mg PO BID 02/28/12 Lorazepam [Ativan] 2 mg PO BID* 04/02/12 Sertraline [Zoloft*] 200 mg PO DAILY 09/15/12 Metoprolol Tartrate 100 mg PO BID #60 tablet 02/03/20 Amlodipine [Norvasc*] 1 tab PO DAILY 07/30/20 Apixaban [Eliquis] 1 tab PO BID 07/30/20 Bupropion HCl [Wellbutrin Xl] 1 tab PO DAILY 07/30/20 Lisinopril [Zestril] 1 tab PO BID 07/30/20 Ipratropium Neb [Atrovent*] 0.5 mg NEB [id number] #60 amp 07/31/20 Albuterol Neb [Proventil 0.083% Neb Soln] 2.5 mg NEB BID 03/05/21 Emtricitabine/Tenofov Alafenam [Descovy 200-25 mg Tablet] 1 tab PO DAILY 03/05/21 Hydralazine HCl 50 mg PO TID 03/05/21 Albuterol Inhaler [Ventolin Inhaler*] 2 puff IH Q6H PRN #1 hfa.aer.ad 03/06/21 Multivit with Iron,Minerals [Complete Senior] 1 each PO DAILY #90 tablet 03/06/21 Promethazine Tab [Phenergan] 12.5 mg PO Q6HP PRN #5 tab 03/16/21 Review of Systems 10-point ROS is otherwise unremarkable General: Chills, Weakness, Malaise, As per HPI Eyes: Unremarkable ENT: Unremarkable Respiratory: Cough, Shortness of Breath, SOB with Excertion, Sputum, Wheezing (diffuse wheezes, audible without stethoscope ) Cardiovascular: Chest Pain Gastrointestinal: Nausea Genitourinary: Incontinence (with cough ) Musculoskeletal: Back Pain Integumentary: Unremarkable Neurological: Weakness Lymphatics: Unremarkable <Checo Guerrero - Last Filed: 03/29/21 04:05> Physical Examination - Physical Exam General: Alert, In no apparent distress HEENT: Atraumatic, PERRLA, Mucous membr. moist/pink, EOMI, Sclerae nonicteric Neck: Supple, 2+ carotid pulse no bruit, No LAD, Without JVD or thyroid abnormality Respiratory: Diminished, Expiratory wheezes Cardiovascular: No edema, Regular rate/rhythm, Normal S1 S2 Gastrointestinal: Normal bowel sounds, No tenderness Musculoskeletal: No tenderness Integumentary: No rashes Neurological: Normal strength at 5/5 x4 extr, Normal tone, Normal affect, Abnormal speech (labored ) Lymphatics: No axilla or inguinal lymphadenopathy - Studies Laboratory Data (last 24 hrs) 03/29/21 01:09 CRUST SORTER: PT 13.1 H, INR 1.14 03/29/21 01:09 CRUST SORTER: WBC 14.70 H D, Hgb 9.1 L, Hct 30.3 L, Plt Count 243 03/29/21 01:09 CRUST SORTER: Sodium 146 H, Potassium 3.4 L, BUN 44 H, Creatinine 1.10, Glucose 155 H, Magnesium 2.3, Total Bilirubin 0.3, AST 32, ALT 64, Alkaline Phosphatase 57 <Checo Guerrero - Last Filed: 03/29/21 04:05> Assessment and Plan - Problems (Diagnosis) (1) Anemia of chronic disease Current Visit: No Status: Chronic (2) Atrial fibrillation Current Visit: No Status: Chronic Qualifiers: Atrial fibrillation type: unspecified Qualified Code(s): I48.91 - Unspecified atrial fibrillation (3) COPD exacerbation Current Visit: No Status: Acute (4) Hypertension Current Visit: No Status: Chronic Qualifiers: Hypertension type: primary hypertension Qualified Code(s): I10 - Essential (primary) hypertension (5) Weakness Onset Date: 10/06/16 Current Visit: No Status: Chronic - Plan pulmonology consulted, RT consulted ABG pending continue IV steroids, breathing tx, IV antibiotics O2 as needed hydralazine PRN for BP spikes continue home eliquis reconcile and continue home medications Discharge Plan: Home Plan to discharge in: 48 Hours - Advance Directives Does patient have a Living Will: No Does patient have a Durable POA for Healthcare: No - Code Status/Comfort Care Code Status Assessed: Yes (full code ) Critical Care: No Time Spent Managing Pts Care (In Minutes): 70 <Checo Guerrero - Last Filed: 03/29/21 04:05> - Problems (Diagnosis) (1) Back pain of lumbar region with sciatica Current Visit: Yes Status: Acute (2) COPD exacerbation Current Visit: No Status: Acute (3) Chest pain Current Visit: No Status: Acute (4) Depressive disorder Onset Date: 05/26/15 Current Visit: No Status: Acute (5) Diabetes mellitus Current Visit: No Status: Acute (6) HIV (human immunodeficiency virus infection) Current Visit: No Status: Acute (7) Intractable nausea and vomiting Onset Date: 06/30/17 Current Visit: No Status: Acute (8) SOB (shortness of breath) Current Visit: No Status: Acute (9) Bipolar disorder Onset Date: 05/26/15 Current Visit: No Status: Chronic Qualifiers: (10) COPD (chronic obstructive pulmonary disease) Onset Date: 05/26/15 Current Visit: No Status: Chronic Qualifiers: (11) Hepatitis C Onset Date: 10/06/16 Current Visit: No Status: Chronic Qualifiers: <Liz Qureshi - Last Filed: 03/30/21 01:00> Date of Service: 03/29/21 Subjective Agree with HPI as above Review of Systems 10-point ROS is otherwise unremarkable Physical Examination - Vital Signs Temperature: 97.9 F Blood Pressure: 154/77 Pulse: 59 Respirations: 18 Pulse Ox (%): 96 - Physical Exam General: Alert, In no apparent distress HEENT: Atraumatic, PERRLA, EOMI Neck: Supple, JVD not distended Respiratory: Clear to auscultation bilaterally, Normal air movement Cardiovascular: Regular rate/rhythm, Normal S1 S2 Gastrointestinal: Normal bowel sounds, No tenderness Musculoskeletal: No tenderness Integumentary: No rashes Neurological: Normal speech, Normal tone, Normal affect Lymphatics: No axilla or inguinal lymphadenopathy - Studies Laboratory Data (last 24 hrs) 03/29/21 01:09 CRUST SORTER: PT 13.1 H, INR 1.14 03/29/21 01:09 CRUST SORTER: WBC 14.70 H D, Hgb 9.1 L, Hct 30.3 L, Plt Count 243 03/29/21 01:09 CRUST SORTER: Sodium 146 H, Potassium 3.4 L, BUN 44 H, Creatinine 1.10, Glucose 155 H, Magnesium 2.3, Total Bilirubin 0.3, AST 32, ALT 64, Alkaline Phosphatase 57 Medications List Reviewed: Yes Assessment & Plan - Problems (Diagnosis) (1) Back pain of lumbar region with sciatica Current Visit: Yes Status: Acute (2) COPD exacerbation Current Visit: No Status: Acute (3) Chest pain Current Visit: No Status: Acute (4) Depressive disorder Onset Date: 05/26/15 Current Visit: No Status: Acute (5) Diabetes mellitus Current Visit: No Status: Acute (6) HIV (human immunodeficiency virus infection) Current Visit: No Status: Acute (7) Intractable nausea and vomiting Onset Date: 06/30/17 Current Visit: No Status: Acute (8) SOB (shortness of breath) Current Visit: No Status: Acute (9) Bipolar disorder Onset Date: 05/26/15 Current Visit: No Status: Chronic Qualifiers: (10) COPD (chronic obstructive pulmonary disease) Onset Date: 05/26/15 Current Visit: No Status: Chronic Qualifiers: (11) Hepatitis C Onset Date: 10/06/16 Current Visit: No Status: Chronic Qualifiers: - Plan Plan: 1. Continue with albuterol and Atrovent nebs 2. Continue with IV steroids 3. Outpatient pulmonary function testing 4. Pulmonary follow-up if symptoms do not improve 5. Room air O2 sats 6. Repeat chest x-ray in the morning 7. Peak flows as needed 8. Lumbar films 9. and DVT prophylaxis - Advance Directives Does patient have a Living Will: No Does patient have a Durable POA for Healthcare: No <Liz Qureshi - Last Filed: 03/30/21 01:00>
[2021-03-29] MEDS ORDERED: ONDANSETRON 4 MG/2 ML VIAL IV PRN (04:21)
[2021-03-29] MEDS ORDERED: ACETAMINOPHEN 500 MG TAB PO PRN (04:21)
[2021-03-29] MEDS ORDERED: ALBUTEROL 2.5 MG/3 ML NEB SOL NEB PRN (04:21)
[2021-03-29] MEDS ORDERED: MORPHINE 2 MG/ML SYR IV PRN (04:21)
[2021-03-29] MEDS ORDERED: IPRATROPIUM BROM 0.5MG/2.5ML NEB PRN (04:21)
[2021-03-29 05:24] LABS: Arterial Blood Carboxyhemoglob 1.4 % (0-1.5); Blood Gas Oxyhemoglobin 89.7 % (94-97); Blood O2 Saturation 92.6 % (92-98.5)
[2021-03-29 06:01] VITALS: BMI 38.6
--- NOTE | 2021-03-29 08:55 | RAD REPORT ---
EXAM DESCRIPTION: Patrick Single View03/29/2021 1:27 am CLINICAL HISTORY: Chest pain COMPARISON: March 28 2021 FINDINGS: Haziness to the left base without significant change probably epicardial fat. Lungs appear grossly clear. Heart is mildly to moderately enlarged
--- NOTE | 2021-03-29 08:58 | P.PN ---
Subjective Date of Service: 03/29/21 Patient with numerous complaints. She states she is having a hard time breathing. She still is congested. She is having a lot of coughing episodes. She is having a lot of back pain which radiates down her leg. She is mad at the nurses for not giving pain medication as she wants. Review of Systems 10-point ROS is otherwise unremarkable Physical Examination - Vital Signs Temperature: 97.9 F Blood Pressure: 154/77 Pulse: 59 Respirations: 18 Pulse Ox (%): 96 - Physical Exam General: Alert, In no apparent distress HEENT: Atraumatic, PERRLA, EOMI Neck: Supple, JVD not distended Respiratory: Clear to auscultation bilaterally, Normal air movement Cardiovascular: Regular rate/rhythm, Normal S1 S2 Gastrointestinal: Normal bowel sounds, No tenderness Musculoskeletal: No tenderness Integumentary: No rashes Neurological: Normal speech, Normal tone, Normal affect Lymphatics: No axilla or inguinal lymphadenopathy - Studies Laboratory Data (last 24 hrs) 03/29/21 01:09 SPORTS LAWYER: PT 13.1 H, INR 1.14 03/29/21 01:09 SPORTS LAWYER: WBC 14.70 H D, Hgb 9.1 L, Hct 30.3 L, Plt Count 243 03/29/21 01:09 SPORTS LAWYER: Sodium 146 H, Potassium 3.4 L, BUN 44 H, Creatinine 1.10, Glucose 155 H, Magnesium 2.3, Total Bilirubin 0.3, AST 32, ALT 64, Alkaline Phosphatase 57 Medications List Reviewed: Yes Assessment & Plan - Problems (Diagnosis) (1) Back pain of lumbar region with sciatica Current Visit: Yes Status: Acute (2) COPD exacerbation Current Visit: No Status: Acute (3) Chest pain Current Visit: No Status: Acute (4) Depressive disorder Onset Date: 05/26/15 Current Visit: No Status: Acute (5) Diabetes mellitus Current Visit: No Status: Acute (6) HIV (human immunodeficiency virus infection) Current Visit: No Status: Acute (7) Intractable nausea and vomiting Onset Date: 06/30/17 Current Visit: No Status: Acute (8) SOB (shortness of breath) Current Visit: No Status: Acute (9) Bipolar disorder Onset Date: 05/26/15 Current Visit: No Status: Chronic Qualifiers: (10) COPD (chronic obstructive pulmonary disease) Onset Date: 05/26/15 Current Visit: No Status: Chronic Qualifiers: (11) Hepatitis C Onset Date: 10/06/16 Current Visit: No Status: Chronic Qualifiers: - Plan Plan: 1. Continue with albuterol and Atrovent nebs 2. Continue with IV steroids 3. Outpatient pulmonary function testing 4. Pulmonary follow-up if symptoms do not improve 5. Room air O2 sats 6. Repeat chest x-ray in the morning 7. Peak flows as needed 8. Lumbar films 9. and DVT prophylaxis - Advance Directives Does patient have a Living Will: No Does patient have a Durable POA for Healthcare: No
[2021-03-29] MEDS ORDERED: MORPHINE 4 MG/ML SYR IV ONE (09:01)
[2021-03-29] MEDS: APIXABAN 5 MG TABLET PO SCH ×2 (09:47→20:45)
[2021-03-29] MEDS: METHYLPREDNISOLONE 40 MG INJ IV SCH ×2 (09:54→16:28)
[2021-03-29] MEDS: BENZONATATE 100 MG CAP PO PRN ×2 (09:54→16:31)
--- NOTE | 2021-03-29 11:07 | RAD REPORT ---
EXAM DESCRIPTION: RAD - Lumbar Spine 3 Views - 03/29/2021 10:31 am CLINICAL HISTORY: Back pain FINDINGS: No fracture or dislocation is seen. Mild spondylosis involves the lumbar spine. Osteoarthritis involves the facet joints of the lower lum bar spine. Bones appear osteoporotic. Mild scoliosis
[2021-03-29] MEDS: HYDROCODONE/APAP 10/325 TAB PO PRN (12:37)
[2021-03-29] MEDS: HYDRALAZINE HCL 20 MG/ML VIAL IV PRN (12:37)
[2021-03-29] MEDS ORDERED: SODIUM CHLORIDE 0.9% 10ML INJ IV PRN (14:43)
[2021-03-29] MEDS ORDERED: PANTOPRAZOLE 40 MG INJ IVP SCH (16:00)
[2021-03-29] MEDS: LORAZEPAM 0.5 MG TABLET PO SCH ×2 (16:29→20:45)
[2021-03-29] MEDS: PANTOPRAZOLE 40MG TABLET PO SCH (16:30)
[2021-03-30] MEDS: METHYLPREDNISOLONE 40 MG INJ IV SCH ×2 (00:36→10:52)
[2021-03-30 02:14] LABS: Urine Appearance CLEAR (Clear); Urine Bilirubin NEGATIVE (Negative); Urine Blood NEGATIVE (Negative); Urine Color YELLOW (Yellow); Urine Glucose 2+ (Negative); Urine Protein NEGATIVE (Negative); Urine Specific Gravity 1.025 (1.005-1.030); Urine Urobilinogen 0.2 mg/dL (0.2-1.0); Urine pH 5.5 (5.0-7.0)
[2021-03-30 02:15] LABS: Urine Microscopic Reflex NO UMIC
[2021-03-30] MEDS ORDERED: Levofloxacin 750mg IV 750 MG/150 ML BAG IV SCH (03:00)
[2021-03-30] MEDS: HYDROCODONE/APAP 10/325 TAB PO PRN ×2 (03:31→09:47)
[2021-03-30] MEDS: HYDRALAZINE HCL 20 MG/ML VIAL IV PRN (04:55)
[2021-03-30 05:56] LABS: Albumin 3.1 g/dL (3.4-5.0); Bilirubin Total 0.3 mg/dL (0.2-1.0); Magnesium 2.7 mg/dL (1.8-2.4); Phosphorus 3.3 mg/dL (2.5-4.9); Potassium 4.5 mmol/L (3.5-5.1); Protein, Total 7.1 g/dL (6.4-8.2)
[2021-03-30 06:03] LABS: Absolute Lymphocytes (CBC) 0.7 K/uL (0.7-4.9); Basophils % 0.2 % (0-1.3); Hematocrit 31.2 % (36.0-45.0); Lymphocytes % 5.2 % (15.3-44.8); MPV 7.2 fL (7.6-11.3); RBC Red Blood Cell Count 4.44 M/uL (3.86-4.86)
[2021-03-30] MEDS ORDERED: PANTOPRAZOLE 40MG TABLET PO SCH (06:30)
[2021-03-30 06:40] LABS: Anisocytosis 1+; Blood Morphology Comment NOTED (NOT SEEN); Hypochromasia 1+; Platelet Estimate ADEQ; White Blood Cell Scan OK (OK)
[2021-03-30] MEDS ORDERED: ARFORMOTEROL TARTRATE 15 MCG/2 ML VIAL.NEB NEB SCH (08:00)
[2021-03-30 08:31] VITALS: BP 164/77; TEMP 97.4
[2021-03-30] MEDS ORDERED: ASPIRIN 81 MG CHEWABLE TABLET PO SCH (09:00)
[2021-03-30] MEDS ORDERED: BUSPIRONE HCL 15 MG TABLET PO SCH (09:00)
[2021-03-30] MEDS ORDERED: METOPROLOL TAR 50 MG TAB PO SCH (09:00)
[2021-03-30] MEDS ORDERED: EMTRICITABINE PO SCH (09:00)
[2021-03-30] MEDS ORDERED: DOCUSATE NA/SENNA CONC 1 TAB PO SCH (09:00)
[2021-03-30] MEDS ORDERED: RALTEGRAVIR POTASSIUM 400 MG TABLET PO SCH (09:00)
[2021-03-30] MEDS ORDERED: SERTRALINE HCL 100 MG TAB PO SCH (09:00)
[2021-03-30] MEDS ORDERED: AMIODARONE HCL 200 MG TAB PO SCH (09:00)
[2021-03-30] MEDS ORDERED: BUPROPION HCL XL 150 MG TAB PO SCH (09:00)
[2021-03-30] MEDS ORDERED: HYDRALAZINE HCL 25 MG TABLET PO SCH (09:00)
[2021-03-30] MEDS ORDERED: TENOFOV ALAFENAM PO SCH (09:00)
[2021-03-30] MEDS ORDERED: AMLODIPINE 10 MG TAB PO SCH (09:00)
[2021-03-30] MEDS ORDERED: lisinopriL 20 MG TAB PO SCH (09:00)
[2021-03-30] MEDS: APIXABAN 5 MG TABLET PO SCH (09:00)
[2021-03-30 09:16] VITALS: O2SAT 94
[2021-03-30] MEDS: LORAZEPAM 0.5 MG TABLET PO SCH (09:45)
[2021-03-30] MEDS: PANTOPRAZOLE 40MG TABLET PO SCH (09:47)
--- NOTE | 2021-03-30 10:04 | P.DS ---
Admission Date: 03/29/21 Discharge Date: 03/30/21 Primary Care Provider: Dr. Rahman; Pulmonary-Dr. Sosa Disposition: DC HOME/HOME HEALTH CARE Discharge Condition: GOOD Reason for Admission: COPD exacerbation Consultations: Pulmonary-Dr. Sosa Procedures: COVID: Negative CXR: COMPARISON: March 28 2021 FINDINGS: Haziness to the left base without significant change probably epicardial fat. Lungs appear grossly clear. Heart is mildly to moderately enlarged Lumbar Xray: FINDINGS: No fracture or dislocation is seen. Mild spondylosis involves the lumbar spine. Osteoarthritis involves the facet joints of the lower lumbar spine. Bones appear osteoporotic. Mild scoliosis Medical Problem List: Brief History of Present Illness: 66-year-old female with multiple medical problems including HIV, CAD, bipolar disorder, hypertension, COPD, atrial fibrillation on chronic anticoagulation therapy and GERD with hiatal hernia. Patient presented with increasing shortness of breath. Patient reported some wheezing and chills. Patient normally on 2 L per nasal cannula. Patient also reported some back pain. Patient was admitted for treatment. Hospital Course: Patient presented with shortness of breath secondary to COPD exacerbation. Patient uses home oxygen. Patient reports compliance with her current medication for COPD. Patient has improved. Chest x-ray showed no evidence of pneumonia. Covid test negative. Influenza test negative. RSV negative. Blood and urine culture test unremarkable. At discharge patient will continue with prednisone 20 mg 1 pill twice daily for 7 days and 1 pill once daily for 7 days. At discharge she will continue with her medication including performist 1 unit dose twice daily. Patient will continue with albuterol 1 unit dose 3 times a day as needed for shortness of breath. Patient will continue with home oxygen to maintain sats above 93%. Education provided. Recommend follow-up with pulmonology in 1 to 2 weeks to follow-up his hospitalization. Recommend follow- up with her PCP to follow-up this hospitalization. Prior to discharge we will make arrangements for home health and physical therapy at discharge. Patient also presented with mild renal insufficiency. Repeat labs shows improvement. Recommend to increase oral intake. Recommend to recheck labBMP in 1 to 2 weeks to monitor progress. Patient with hypertension. At discharge she will continue with her medicationsNorvasc 10 mg daily, metoprolol 100 mg 1 pill twice daily, hydralazine 50 mg 1 pill 3 times a day and lisinopril 40 mg daily. Recommend to maintain blood pressure less 130/80. If blood pressures remain above 140/90 she is to contact her PCP for further recommendation. Patient with atrial fibrillation on chronic anticoagulation therapy. At discharge she will continue with her medicationsaspirin 81 mg daily, amiodarone 200 mg daily, and Eliquis 5 mg 1 pill twice daily. Recommend follow-up with her PCP and cardiology as directed. Patient with bipolar disorder. At discharge she will continue with her medications-Wellbutrin XL 150 mg daily, buspirone 30 mg 1 pill twice daily, and Zoloft 200 mg daily. Patient also reported back pain. X-ray shows no evidence of fracture or dislocation. Mild spondylosis involving the lumbar spine noted. Osteoarthritis also noted. Bones appear osteoporotic. Mild scoliosis identified. Recommend follow-up with PCP to further address. Consider pain management referral to further address her chronic pain. This can be done with the help of her PCP. PCP will need to follow-up and address her osteoporosis. This can be done as an outpatient. Home health and physical therapy will be arranged prior to discharge. Social work to help with this. Fall precautions in place. Patient with HIV. At discharge she will continue with her current medications- Descovy 200/25 mg 1 pill daily and and Isentress 400 mg 1 pill twice daily recommend follow-up with her HIV specialist as directed. Patient with GERD. At discharge we will continue with Dexilant 60 mg daily. Patient also takes docusate daily for chronic constipation. Vital Signs/Physical Exam: Temp Pulse Resp BP Pulse Ox 97.4 F 82 18 164/77 H 95 03/30/21 08:00 03/30/21 08:00 03/30/21 08:00 03/30/21 09:46 03/30/21 08:00 General: Alert, In no apparent distress, Oriented x3, Cooperative HEENT: Atraumatic Neck: Supple Respiratory: Clear to auscultation bilaterally, Normal air movement Cardiovascular: Normal pulses, Regular rate/rhythm Gastrointestinal: Normal bowel sounds, No tenderness, No masses, No rebound, No guarding Musculoskeletal: No erythema, No tenderness, No warmth Integumentary: No tenderness/swelling, No erythema, No warmth, No cyanosis Neurological: Normal speech, Normal strength at 5/5 x4 extr, Normal tone, Normal affect Laboratory Data at Discharge: WBC 13.70 K/uL (4.3-10.9) H 03/30/21 05:19 Hgb 9.4 g/dL (12.0-15.0) L 03/30/21 05:19 Hct 31.2 % (36.0-45.0) L 03/30/21 05:19 Plt Count 251 K/uL (152-406) 03/30/21 05:19 PT 13.1 SECONDS (9.5-12.5) H 03/29/21 01:09 PATTERN DATA OPERATOR INR 1.14 03/29/21 01:09 PATTERN DATA OPERATOR Sodium 141 mmol/L (136-145) 03/30/21 05:19 Potassium 4.5 mmol/L (3.5-5.1) 03/30/21 05:19 BUN 37 mg/dL (7-18) H 03/30/21 05:19 Creatinine 0.91 mg/dL (0.55-1.3) 03/30/21 05:19 Glucose 206 mg/dL (74-106) H 03/30/21 05:19 Phosphorus 3.3 mg/dL (2.5-4.9) 03/30/21 05:19 Magnesium 2.7 mg/dL (1.8-2.4) H 03/30/21 05:19 Total Bilirubin 0.3 mg/dL (0.2-1.0) 03/30/21 05:19 AST 32 U/L (15-37) 03/30/21 05:19 ALT 62 U/L (12-78) 03/30/21 05:19 Alkaline Phosphatase 65 U/L (45-117) 03/30/21 05:19 Home Medications: Raltegravir Potassium [Isentress] 400 mg PO BID 02/28/12 Sertraline [Zoloft*] 2 tab PO DAILY 09/15/12 Metoprolol Tartrate 100 mg PO BID #60 tablet 02/03/20 Apixaban [Eliquis] 1 tab PO BID 07/30/20 Bupropion HCl [Wellbutrin Xl] 1 tab PO DAILY 07/30/20 Lisinopril [Zestril] 1 tab PO BID 07/30/20 Emtricitabine/Tenofov Alafenam [Descovy 200-25 mg Tablet] 1 tab PO DAILY 03/05/21 Hydralazine HCl 50 mg PO TID 03/05/21 Albuterol Neb [Proventil 0.083% Neb Soln] 3 ml NEB TID PRN #90 amp 03/30/21 Amiodarone HCl [Pacerone] 1 tab PO DAILY 03/30/21 Amlodipine Besylate 1 tab PO DAILY 03/30/21 Aspirin 1 tab PO DAILY 03/30/21 Buspirone HCl 30 mg PO BID 03/30/21 Dexlansoprazole [Dexilant] 60 mg PO DAILY 03/30/21 Docusate/Senna [Senokot-S*] 1 tab PO DAILY 03/30/21 predniSONE [Prednisone*] 20 mg PO SEECOM #21 tab 03/30/21 New Medications: predniSONE [Prednisone*] 20 mg PO SEECOM #21 tab Albuterol Neb [Proventil 0.083% Neb Soln] 3 ml NEB TID PRN #90 amp PRN Reason: Shortness Of Breath Physician Discharge Instructions: Patient presented with shortness of breath secondary to COPD exacerbation. Patient uses home oxygen. Patient reports compliance with her current medication for COPD. Patient has improved. Chest x-ray showed no evidence of pneumonia. Covid test negative. Influenza test negative. RSV negative. Blood and urine culture test unremarkable. At discharge patient will continue with prednisone 20 mg 1 pill twice daily for 7 days and 1 pill once daily for 7 days. At discharge she will continue with her medication including performist 1 unit dose twice daily. Patient will continue with albuterol 1 unit dose 3 times a day as needed for shortness of breath. Patient will continue with home oxygen to maintain sats above 93%. Education provided. Recommend follow-up with pulmonology in 1 to 2 weeks to follow-up his hospitalization. Recommend follow- up with her PCP to follow-up this hospitalization. Prior to discharge we will make arrangements for home health and physical therapy at discharge. Patient also presented with mild renal insufficiency. Repeat labs shows improvement. Recommend to increase oral intake. Recommend to recheck labBMP in 1 to 2 weeks to monitor progress. Patient with hypertension. At discharge she will continue with her medicationsNorvasc 10 mg daily, metoprolol 100 mg 1 pill twice daily, hydralazine 50 mg 1 pill 3 times a day and lisinopril 40 mg daily. Recommend to maintain blood pressure less 130/80. If blood pressures remain above 140/90 she is to contact her PCP for further recommendation. Patient with atrial fibrillation on chronic anticoagulation therapy. At discharge she will continue with her medicationsaspirin 81 mg daily, amiodarone 200 mg daily, and Eliquis 5 mg 1 pill twice daily. Recommend follow-up with her PCP and cardiology as directed. Patient with bipolar disorder. At discharge she will continue with her medications-Wellbutrin XL 150 mg daily, buspirone 30 mg 1 pill twice daily, and Zoloft 200 mg daily. Patient also reported back pain. X-ray shows no evidence of fracture or dislocation. Mild spondylosis involving the lumbar spine noted. Osteoarthritis also noted. Bones appear osteoporotic. Mild scoliosis identified. Recommend follow-up with PCP to further address. Consider pain management referral to further address her chronic pain. This can be done with the help of her PCP. PCP will need to follow-up and address her osteoporosis. This can be done as an outpatient. Home health and physical therapy will be arranged prior to discharge. Social work to help with this. Fall precautions in place. Patient with HIV. At discharge she will continue with her current medications- Descovy 200/25 mg 1 pill daily and and Isentress 400 mg 1 pill twice daily recommend follow-up with her HIV specialist as directed. Patient with GERD. At discharge we will continue with Dexilant 60 mg daily. Patient also takes docusate daily for chronic constipation. Diet: AHA Activity: Ad pricila Followup: NONE,NONE [Primary Care Provider] - Time spent managing pt's care (in minutes): 55
--- NOTE | 2021-03-30 13:05 | P.CNS ---
Date of Consult: 03/30/21 Primary Care Provider: Dr. Rahman; Pulmonary-Dr. Sosa Chief Complaint: COPD exacerbation History of Present Illness: Pt is 66 yrs old recureent hosital admissions, AW worsening SOB vry anxious and weepy, on pred and SA BD's at home. No fever or chills Allergies fentanyl Allergy (Severe, Verified 07/30/20 21:09) Hives butorphanol tartrate [From Stadol] Allergy (Verified 07/30/20 21:09) confusion metoclopramide HCl [From Reglan] Allergy (Verified 07/30/20 21:09) Shortness of breath sulfamethoxazole [From Bactrim] Allergy (Verified 07/30/20 21:09) Hives/Rash trimethoprim [From Bactrim] Allergy (Verified 07/30/20 21:09) Hives/Rash Bactrim DS Allergy (Intermediate, Uncoded 07/30/20 21:09) Nausea/Vomiting Home Medications: Raltegravir Potassium [Isentress] 400 mg PO BID 02/28/12 Sertraline [Zoloft*] 2 tab PO DAILY 09/15/12 Metoprolol Tartrate 100 mg PO BID #60 tablet 02/03/20 Apixaban [Eliquis] 1 tab PO BID 07/30/20 Bupropion HCl [Wellbutrin Xl] 1 tab PO DAILY 07/30/20 Lisinopril [Zestril] 1 tab PO BID 07/30/20 Emtricitabine/Tenofov Alafenam [Descovy 200-25 mg Tablet] 1 tab PO DAILY 03/05/21 Hydralazine HCl 50 mg PO TID 03/05/21 Albuterol Neb [Proventil 0.083% Neb Soln] 3 ml NEB TID PRN #90 amp 03/30/21 Amiodarone HCl [Pacerone] 1 tab PO DAILY 03/30/21 Amlodipine Besylate 1 tab PO DAILY 03/30/21 Aspirin 1 tab PO DAILY 03/30/21 Buspirone HCl 30 mg PO BID 03/30/21 Dexlansoprazole [Dexilant] 60 mg PO DAILY 03/30/21 Docusate/Senna [Senokot-S*] 1 tab PO DAILY 03/30/21 Nystatin 5 ml PO TID #1 bottle 03/30/21 predniSONE [Prednisone*] 20 mg PO SEECOM #21 tab 03/30/21 - Past Medical/Surgical History Diabetic: No -: HIV diag ~ [address] Yohan Cardenas in [place] -: CAD -: Bipolar disorder Dr Krause in [place] -: Hypertension -: COPD -: Tobacco abuse -: former Alcohol abuse -: Anemia likely of chronic disease -: Hyperlipidemia -: GERD with hiatal hernia -: Atrial fibrillation on chronic anticoagulation therapy -: Appendectomy -: Cholecystectomy -: left and right shoulder rotator cuff repair -: Right foot repair -: Right shoulder replacement -: left shoulder rotated cuff -: hiatal hernia repair february 2021 Psychosocial/ Personal History: She lives at home. She is not . - Family History Father History Unknown: Yes Medical History: Heart disease, Hypertension, Lung disease, GI disease, Stroke, Liver disease, Kidney disease Mother History Unknown: Yes Medical History: Hypertension, Lung disease, GI disease, Blood disorders, Other (see notes) Notes: Epilepsy, chronic pain - Social History Smoking Status: Former smoker Alcohol use: No CD- Drugs: No Caffeine use: Yes Place of Residence: Home Review of Systems 10-point ROS is otherwise unremarkable Respiratory: Cough, Shortness of Breath Physical Examination Temp Pulse Resp BP Pulse Ox 97.4 F 82 18 164/77 H 95 03/30/21 08:00 03/30/21 08:00 03/30/21 08:00 03/30/21 09:46 03/30/21 08:00 General: Alert, Oriented x3, Mild distress Respiratory: Diminished, Expiratory wheezes Cardiovascular: No edema, Normal pulses, Normal S1 S2 Gastrointestinal: Normal bowel sounds, Soft and benign - Problems (1) COPD exacerbation Status: Acute Plan: Pt i s 66 yrs of age recurrent admissions with COPD. Pt anxious. Samples of Breztri from my office, pred 20 mg daily for a week and levaquin c/o productive cough/ mild microcytic anemia/ cxry clear cardiomeg/ DC amidarone HIV pos
--- NOTE | 2021-03-30 18:28 | EKG ---
Test Date: 2021-03-29 Test Time: 00:28:24 Sports Equipment Racker: TRENT MEASUREMENT RESULTS: Intervals: Rate: 69 LA: 122 QRSD: 78 QT: 418 QTc: 447 [place]: P: LA: 122 QRS: 25 T: 70 INTERPRETIVE STATEMENTS: Normal sinus rhythm Nonspecific ST and T wave abnormality Abnormal ECG Compared to ECG 03/27/2021 20:59:35 ST (T wave) deviation now present Atrial premature complex(es) no longer present Left ventricular hypertrophy no longer present Early repolarization no longer present Electronically Signed On 03-30-21 18:24:00 SCALE MECHANIC by Per Crane
--- NOTE | 2021-03-30 18:32 | EKG ---
Test Date: 2021-03-27 Test Time: 20:53:57 Language Teacher: ELENA MEASUREMENT RESULTS: Intervals: Rate: 71 VT: 170 QRSD: 74 QT: 414 QTc: 449 [place]: P: 74 VT: 170 QRS: 16 T: 105 INTERPRETIVE STATEMENTS: Sinus rhythm with premature supraventricular complexes Left ventricular hypertrophy with repolarization abnormality Abnormal ECG Compared to ECG 03/17/2021 09:06:20 Atrial premature complex(es) now present Early repolarization now present T-wave abnormality no longer present Electronically Signed On 03-30-21 18:24:22 SUPERVISOR CALIBRATION by Per Crane
[2021-03-30] MEDS ORDERED: ISENTRESS 400 MG PO SCH (21:00)
== END 2021-03-30 12:30 | disposition home health service (06) | DRG 191 ==
LOC: ER 00:11 → ERHOLD 02:52 → 2ND 03:40
PROVIDERS: ADMIT Hospitalist; ATTEND Family Medicine
DX: J44.1 Chronic obstructive pulmonary disease with (acute) exacerbation (principal); I48.20 Chronic atrial fibrillation, unspecified; I25.10 Atherosclerotic heart disease of native coronary artery without angina pectoris; I10 Essential (primary) hypertension; G89.29 Other chronic pain; E78.5 Hyperlipidemia, unspecified; K21.9 Gastro-esophageal reflux disease without esophagitis; D63.8 Anemia in other chronic diseases classified elsewhere; M54.30 Sciatica, unspecified side; E11.9 Type 2 diabetes mellitus without complications; F31.9 Bipolar disorder, unspecified; B18.2 Chronic viral hepatitis C; N28.9 Disorder of kidney and ureter, unspecified; M81.0 Age-related osteoporosis without current pathological fracture; K59.09 Other constipation; M19.09 Primary osteoarthritis, other specified site; R11.2 Nausea with vomiting, unspecified; R07.9 Chest pain, unspecified; R53.1 Weakness; Z88.1 Allergy status to other antibiotic agents; Z79.01 Long term (current) use of anticoagulants; Z99.81 Dependence on supplemental oxygen; Z87.891 Personal history of nicotine dependence; Z88.8 Allergy status to other drugs, medicaments and biological substances; Z79.899 Other long term (current) drug therapy; Z21 Asymptomatic human immunodeficiency virus [HIV] infection status; Z90.49 Acquired absence of other specified parts of digestive tract; Z79.52 Long term (current) use of systemic steroids; Z79.82 Long term (current) use of aspirin; Z88.5 Allergy status to narcotic agent; Z96.611 Presence of right artificial shoulder joint; Z20.822 Contact with and (suspected) exposure to COVID-19
CPT/HCPCS: 0241U; 36415; 71045; 72100; 80048; 80053; 80076; 81003; 81015; 82805; 83605; 83735; 83880; 84100; 84145; 84484; 85025; 85610; 87040; 87086; 87088; 93005; 94640; 94760; 96365; 96374; 96375; 99284; 99285; J0360; J1940; J2270; J2405; J2920; J2930; J3490; J7605

== ENCOUNTER 2021-03-31 02:43 | Emergency (ER) | payer OTHER ==
[2021-03-31] MEDS ORDERED: MEPERIDINE HCL 25 MG/ML SYR ONE (03:26)
[2021-03-31] MEDS ORDERED: MORPHINE 4 MG/ML SYR ONE (04:28)
--- NOTE | 2021-03-31 04:37 | EDPHYS ---
Physician Documentation [facility] Name: Marjan Fleming Age: 66 yrs Sex: Female : 1955 Arrival Date: 03/31/2021 Time: 02:49 Bed 7 Private MD: ED Physician Ramon Baker HPI: 03/31 03:00 This 66 yrs old Female presents to ER via Wheelchair with complaints of Arm rn Injury. 03:00 The patient or guardian complains of decreased range of motion, injury, pain. The rn complaints affect the right wrist. Onset: The symptoms/episode began/occurred just prior to arrival. Modifying factors: The symptoms are alleviated by remaining still, the symptoms are aggravated by movement. Severity of symptoms: At their worst the symptoms were moderate, in the emergency department the symptoms are unchanged. The patient has not experienced similar symptoms in the past. The patient has not recently seen a physician. Patient states was getting up to use the bathroom and tripped over her equipment, fell onto right outstretched arm and feels like broke her right wrist. Denies any other injury. States pain radiates to right hand.. Historical: - Allergies: 02:51 Bactrim DS; tw5 02:51 butorphanol tartrate; tw5 02:51 Fentanyl; tw5 02:51 Reglan; tw5 02:51 Stadol; tw5 02:51 sulfamethoxazole (bulk); tw5 02:51 TRIMETHOPRIM; tw5 - PMHx: 02:51 Anxiety; Atrial Fib; Bipolar disorder; Chronic pain; COPD; esophageal varices; tw5 Hepatitis; HIV; Migraines; Panic Attacks; Hypertension; - PSHx: 02:51 Appendectomy; Bilateral shoulder repair; hernia repair; Cholecystectomy; tw5 - Immunization history:: Adult Immunizations up to date. - Social history:: Smoking status: Patient/guardian denies using tobacco, the patient reports quitting approximately 9 years ago. - Family history:: not pertinent. - Hospitalizations: : No recent hospitalization is reported. ROS: 03:00 Constitutional: Negative for fever, chills, and weight loss, MS/Extremity: Positive for rn injury and pain to right wrist Skin: Negative for laceration or open wounds Neuro: Negative for weakness, numbness, tingling Exam: 03:01 Constitutional: This is a well developed, well nourished patient who is awake, alert, rn appears in pain and holding right wrist Head/Face: Normocephalic, atraumatic. Neck: Trachea midline, no vertebral point tenderness. Cardiovascular: Irregular rhythm, regular rate. No pulse deficits. Respiratory: No increased work of breathing, no retractions or nasal flaring. MS/ Extremity: Pulses equal, no cyanosis. Neurovascular intact. Mild to moderate tenderness right wrist and proximal dorsal hand. No open wounds or lacerations. No gross deformities Vital Signs: 02:51 BP 144 / 88; Pulse 90; Resp 18; Temp 98; Pulse Ox 97% on R/A; Weight 102.06 kg; Height tw5 5 ft. 4 in. (162.56 cm); Pain 1010; 02:51 Body Mass Index 38.62 (102.06 kg, 162.56 cm) tw5 Procedures: 04:33 Splinting: Splint applied to right wrist using Orthoglass splint, applied by myself. rn tech. Examined by ms, post splint application: neurovascular intact, 2+ distal pulses palpable, brisk capillary refill noted, Patient tolerated well. MDM: 02:50 Patient medically screened. rn 04:33 Differential diagnosis: closed fracture, contusion. Data reviewed: vital signs, nurses rn notes, radiologic studies, plain films, and as a result, I will discharge patient. Test interpretation: by ED physician or midlevel provider: plain radiologic studies, X-ray right wrist shows comminuted distal radius fracture. Counseling: I had a detailed discussion with the patient and/or guardian regarding: the historical points, exam findings, and any diagnostic results supporting the discharge/admit diagnosis, radiology results, the need for outpatient follow up, to return to the emergency department if symptoms worsen or persist or if there are any questions or concerns that arise at home. Response to treatment: the patient's symptoms have markedly improved after treatment, and as a result, I will discharge patient. Special discussion: I discussed with the patient/guardian in detail that at this point there is no indication for admission to the hospital. It is understood, however, that if the symptoms persist or worsen the patient needs to return immediately for re-evaluation. Based on the history and exam findings, there is no indication for further emergent testing or inpatient evaluation. I discussed with the patient/guardian the need to see the orthopedic surgeon for further evaluation of the symptoms. 03/31 02:53 Order name: XRAY Wrist RIGHT 3 view rn 03/31 02:53 Order name: XRAY Hand RIGHT 3 View rn 03/31 03:31 Order name: XRAY Knee LEFT 3 view rn 03/31 02:53 Order name: NPO; Complete Time: 02:56 rn 03/31 02:53 Order name: IV Start; Complete Time: 02:56 rn 03/31 03:22 Order name: Misc. Order: finger traps for counter traction; Complete Time: 03:37 rn 03/31 03:22 Order name: Splint - Sugar Tong - Forearm; Complete Time: 04:19 rn Administered Medications: 03:10 Drug: Demerol (meperidine) 25 mg Route: IVP; Site: left antecubital; mr2 03:29 Drug: Demerol (meperidine) 25 mg Route: IVP; Site: left upper arm; mr2 04:31 Drug: morphine 4 mg Route: IVP; Site: left upper arm; mr2 04:50 Drug: Zofran (Ondansetron) 4 mg Route: IVP; Site: left upper arm; mr2 Disposition Summary: 03/31/21 04:36 Discharge Ordered Location: Home rn Problem: new rn Symptoms: have improved rn Condition: Stable rn Diagnosis - Displaced comminuted fracture of shaft of radius, right arm, initial encounter for rn closed fracture Followup: rn - With: Samson Garcia MD - When: As needed - Reason: Recheck today's complaints, Re-evaluation by your physician Discharge Instructions: - Discharge Summary Sheet rn - Cast or Splint Care, Adult rn - Radial Fracture rn - Closed Reduction for Wrist or Forearm, Care After rn Forms: - Medication Reconciliation Form rn - Thank You Letter rn - Antibiotic kiln furniture saw tender - Prescription Opioid Use rn Signatures: Dispatcher [employer] Ramon Linton MD MD rn Reynard, Mike, RN RN mr2 Elsy Dominguezfany tw5
--- NOTE | 2021-03-31 04:37 | ER ---
Nurse's Notes [facility] Name: Marjan Fleming Age: 66 yrs Sex: Female : 1955 Arrival Date: 03/31/2021 Time: 02:49 Bed 7 Private MD: Diagnosis: Displaced comminuted fracture of shaft of radius, right arm, initial encounter for closed fracture Presentation: 03/31 02:50 Chief complaint: Patient states: " I tripped over my oxygen taken when I went to go to [facility] the bathroom". Coronavirus screen: Vaccine status: Patient reports receiving the 2nd dose of the covid vaccine. Date January 2021. Ebola Screen: Patient negative for fever greater than or equal to 101.5 degrees Fahrenheit, and additional compatible Ebola Virus Disease symptoms Patient denies exposure to infectious person. Patient denies travel to an Ebola-affected area in the 21 days before illness onset. Initial Sepsis Screen: Does the patient meet any 2 criteria? No. Patient's initial sepsis screen is negative. Does the patient have a suspected source of infection? No. Patient's initial sepsis screen is negative. Risk Assessment: Do you want to hurt yourself or someone else? Patient reports no desire to harm self or others. Onset of symptoms was March 31, 2021. 02:50 Acuity: BLAYNE 2 tw5 02:50 Method Of Arrival: Wheelchair 5 Triage Assessment: 02:51 General: Appears uncomfortable, obese, Behavior is crying. Pain: Complains of pain in tw5 right hand Pain currently is 10 out of 10 on a pain scale. Musculoskeletal: Swelling present in right wrist. Injury Description: Deformity sustained to right wrist. Historical: - Allergies: 02:51 Bactrim DS; tw 02:51 butorphanol tartrate; 02:51 Fentanyl; 02:51 Reglan; 02:51 Stadol; 02:51 sulfamethoxazole (bulk); 02:51 TRIMETHOPRIM; tw - PMHx: 02:51 Anxiety; Atrial Fib; Bipolar disorder; Chronic pain; COPD; esophageal varices; tw5 Hepatitis; HIV; Migraines; Panic Attacks; Hypertension; - PSHx: 02:51 Appendectomy; Bilateral shoulder repair; hernia repair; Cholecystectomy; tw - Immunization history:: Adult Immunizations up to date. - Social history:: Smoking status: Patient/guardian denies using tobacco, the patient reports quitting approximately 9 years ago. - Family history:: not pertinent. - Hospitalizations: : No recent hospitalization is reported. Screenin:54 Abuse screen: Denies threats or abuse. Denies injuries from another. Nutritional tw5 screening: No deficits noted. Tuberculosis screening: No symptoms or risk factors identified. Fall Risk Fall in past 12 months (25 points). Ambulatory Aid- None/Bed Rest/Nurse Assist (0 pts). Gait- Normal/Bed Rest/Wheelchair (0 pts). Assessment: 02:54 Pain: Pain currently is 10 out of 10 on a pain scale. Musculoskeletal: Bony deformity tw5 noted of right wrist. Vital Signs: 02:51 BP 144 / 88; Pulse 90; Resp 18; Temp 98; Pulse Ox 97% on R/A; Weight 102.06 kg; Height tw5 5 ft. 4 in. (162.56 cm); Pain 10/10; 02:51 Body Mass Index 38.62 (102.06 kg, 162.56 cm) tw5 ED Course: 02:49 Patient arrived in ED. tw5 02:50 Ramon Baker MD is Attending Physician. rn 02:51 Triage completed. tw5 02:51 Arm band placed on left wrist. Affected limb iced. Affected limb elevated. tw5 02:54 Patient has correct armband on for positive identification. Bed in low position. Call tw5 light in reach. Side rails up X 1. Pulse ox on. NIBP on. Door closed. Noise minimized. Lights dimmed. Moved to private room. Ice pack to injury. Verbal reassurance given. 02:54 Pillow given. tw5 02:55 Manuel Martínez, RN is Primary Nurse. mr2 03:00 No provider procedures requiring assistance completed. mr2 03:14 XRAY Wrist RIGHT 3 view In Process Unspecified. EDMS 03:14 XRAY Hand RIGHT 3 View In Process Unspecified. EDMS 03:15 Missed attempt(s): 22 gauge in left antecubital area. 24 gauge in left upper arm. ds4 Bleeding controlled, band aid applied, catheter tip intact. 03:48 Orthoglass splint: Sugar tong splint applied on right arm. ds4 04:01 XRAY Knee LEFT 3 view In Process Unspecified. EDMS 04:34 Samson Garcia MD is Referral Physician. rn 04:51 IV discontinued. mr2 Administered Medications: 03:10 Drug: Demerol (meperidine) 25 mg Route: IVP; Site: left antecubital; mr2 03:29 Drug: Demerol (meperidine) 25 mg Route: IVP; Site: left upper arm; mr2 04:31 Drug: morphine 4 mg Route: IVP; Site: left upper arm; mr2 04:50 Drug: Zofran (Ondansetron) 4 mg Route: IVP; Site: left upper arm; mr2 Outcome: 04:36 Discharge ordered by MD. rn 04:51 Discharged to home ambulatory. mr2 04:51 Condition: stable 04:51 Discharge instructions given to patient, Instructed on discharge instructions, follow up and referral plans. 04:52 Patient left the ED. mr2 Signatures: Dispatcher [employer] EDMS Ramon Baker MD MD rn Swanson, Donovan ds4 Manuel Martínez RN RN mr2 Dorita Dominguez tw5
[2021-03-31] MEDS ORDERED: ONDANSETRON 4 MG/2 ML VIAL ONE (04:40)
[2021-03-31 05:04] VITALS: BP 144/88; TEMP 98; O2SAT 97
--- NOTE | 2021-03-31 08:54 | RAD REPORT ---
EXAM DESCRIPTION: RAD - Hand Right 3 View - 03/31/2021 3:14 am CLINICAL HISTORY: PAIN COMPARISON: Hand Right 3 View dated 10/07/2016; Hand Right 3 View dated 01/06/2015 FINDINGS: The bones are osteopenic. Mildly displaced fracture, intra-articular, the distal radius is present. Small ulnar styloid avulsion fracture also present.
--- NOTE | 2021-03-31 08:55 | RAD REPORT ---
EXAM DESCRIPTION: RAD - Wrist Right 3 View - 03/31/2021 3:14 am CLINICAL HISTORY: PAIN Pain COMPARISON: No comparisons FINDINGS: Diffuse osteopenia is seen. Mildly displaced and angulated distal radius fracture is pres ent, intraarticular. Small ulnar styloid avulsion fracture also seen.
--- NOTE | 2021-03-31 09:10 | RAD REPORT ---
EXAM DESCRIPTION: RAD - Knee Left 3 View - 03/31/2021 4:01 am CLINICAL HISTORY: PAIN COMPARISON: No comparisons FINDINGS: Moderate soft tissue swelling seen anterior to the patella and patella tendon. No acute fr acture or dislocation seen. No intraarticular joint fluid.
--- OUTSIDE RECORDS SUMMARY | 2021-04-04 17:44 | XMS REPORT | Continuity of Care Document ---
:1955 Author Organization [facility] t Address [address] [place] [address] Care Team Providers Name Role Phone MURPHY Primary Care Physician Unavailable HEMATPOUR Attending Clinician Unavailable SELF Attending Clinician Unavailable Ronald DHILLON Attending Clinician Prabhu SANCHEZ Attending Clinician Unavailable Shelia JENKINS, H Attending Clinician Tiny SALGUERO Attending Clinician Lab, Fam Pob I Attending Clinician Unavailable Doctor Unassigned, Name Attending Clinician Unavailable Carol Ann IZQUIERDO M. Attending Clinician Yazmin JENKINS Attending Clinician [facility] Attending Clinician Unavailable Devin SALGUERO R [...] Number Effective Date Expiration Date Christian lloyd [facility] [id number] 2012 STAR PLUS 00:00:00 [employer] [id number] 2019 BEHAVIORAL 00:00:00 SOLUTIONS MEDICAID OF [place] [id number] 2020 00:00:00 Problems Condition Condition Condition Status Onset Resolution Last Treating Co mments Source Name Details Category Date Date Treatment Clinician Date Gastropare Gastropare Disease Active Overview : Methodi sis sis 4-[address] 00:00: [facility] note l might be different from the original. Added automatic ally from request for surgery [id number] Dysphagia Dysphagia Disease Active Overview: Methodi 4-[address] 00:00: [facility] this [facility] 00 note l might be different from the original. Added automatic ally from request for surgery [id number] CCL / EPS Diagnosis Active 2020-10-15 Memoria PVI 3-30 17:07:00 l ABLATION CCL / 00:00: [place] W/ CARTO / EPS PVI 00 GA / T ABLATION W/ CARTO / GA / T Active 08/19/2020 [facility] [place] [facility] Food Food Disease Active 2019-05 Methodi intoleranc [...] hepatitis 11-18 ity of C C 00:00: [place] [facility] Hypertensi Hypertensi Disease Active U [...] Date Stop Date Source Natural father Diabetes [facility] Natural father Other - see comments [facility] Natural father Coronary [facility] Natural father [facility] father [facility] Natural mother Cancer [facility] Social History Social Habit Start Date Stop Date Quantity Comments Source History SDOH [facility] Std Drinks History [facility] Alcohol Binge Exposure to Not sure [facility] SARS-CoV-2 (event) History of tobacco Smoker [facility] Cigarettes smoked 2020-12-08 2020-12-[address] current (pack per 00:00:00 00:00:00 Hospita l ) - Reported Cigarette 2020-12-08 2020-12-08 [facility] pack-years 00:00:00 00:00:00 Hospital Tobacco use and 2020-12-08 2020-12-08 Never used [facility] exposure 00:00:00 00:00:00 Hospital Tobacco use and 2020-10-31 2020-10-31 Never used [facility] exposure 00:00:00 00:00:00 Alcohol intake 2020-10-31 2020-10-31 Ex-drinker [facility] 00:00:00 00:00:00 (finding) History SDOH 2020-10-31 2020-10-31 1 [facility] Alcohol Frequency 00:00:00 00:00:00 Alcohol Comment 2016-09-23 2016-09-23 rare [facility] 00:00:00 00:00:00 Hospital Tobacco Comment 2015-02-14 2015-02-14 Smokes approx 1-2 Un iversity of 00:00:00 00:00:00 cigarettes per [place] [facility] day when she Branch smokes Sex Ass[birth year] At [birth year] [facility] 00:[facility]:00 00:00:00 Smoking Status Start Date Stop Date Source Former smoker 2020-12-08 00:00:00 2020-12-08 [facility] Former smoker 2020-10-31 00:00:00 2020-10-31 00:00:00 [facility] Unknown if ever smoked [facility] Medications Ordered Filled Start Stop Current Ordering Indication Dosage Frequency Signature Comments Components Source Medication Medication Date Date Medication? Clinician (SIG) Name Name LORazepam 2 2020-05 Yes [id number] 2mg Take 1 [facility] mg tablet 1-03 tablet by ity o f 00:00: mouth 2 [place] 00 (two) Medical times Branch daily as needed (anxiety). raltegravir Yes [id number] 400mg Take 1 [facility] (ISENTRESS) 9-24 tablet by ity of 400 mg 00:00: mouth 2 [place] tablet 00 (two) Medical times Branch daily. buPROPion Yes [id number] 150mg Take 1 U nivers XL 9-08 tablet by ity of (WELLBUTRIN 00:00: mouth [place] XL) 150 mg 00 daily. Medical 24 hr Branch tablet SERTraline Yes [id number] 200mg Take 2 [facility] 100 mg 9-08 tablets by ity of tablet 00:00: mouth [place] 00 daily. Medical Branch busPIRone Yes [id number] 30mg Take 1 Un matt 30 mg 8-30 tablet by ity of tablet 00:00: mouth 2 [place] 00 (two) Medical times Branch daily. LORazepam 2 2020- No [id number] 2mg Take 1 [facility] mg tablet 8-30 11-03 tablet by ity of 00:00: 00:00 mouth 2 [place] 00 :00 (two) Medical times Branch daily as needed (anxiety). metoprolol 2021- No [id number] Take 1 [facility] tartrate -17 06-23 tablet Health (Lopressor) 00:00: 05:59 (100 mg 100 MG 00 :00 total) by tablet mouth 2 (two) times a day AND 0.5 tablets (50 mg total) every night. raltegravir 0 Yes 400mg Q.5D Take 400 U T (Isentress) 7-23 mg by Health 400 MG 13:03: mouth 2 tablet 05 (two) times a day. raltegravir 0 Yes 400mg Q.5D Take 400 U T (Isentress) 7-23 mg by Health 400 MG 13:03: mouth 2 tablet 05 (two) times a day. lisinopril Yes 40mg Q.5D Take 40 mg [...] QD Take 10 mg M ethodi (NORVASC) 7- by mouth st 10 mg 15:51: daily. Hospita tablet 25 l LORAZepam Yes 2mg QD Take 2 mg Met hodi (ATIVAN) 2 -[address] MG tablet 15:51: nightly as Ho spita 25 needed for l anxiety. sertraline Yes 200mg QD Take 200 Me thodi (ZOLOFT) 7-[address] 100 MG 15:51: mouth Hospita tablet 25 daily. l clobetasol 0 Yes 1{appli Q.5D Apply 1 M ethodi (TEMOVATE) 7-19 cation} applicatio st 0.05 % 15:51: n Hospita ointment 25 topically l 2 (two) times a day. (affected area in groin) hydrALAZINE 0 Yes 50mg Q.[id number] Take 50 mg Methodi (APRESOLINE 7-[id number] mouth [address] ) 50 MG [...] Hospita tablet 25 daily. l nystatin-tr Yes [id number] Apply to [facility] iamcinolone 11-25 area(s) 3 ity of cream 00:00: (three) [place] 00 times Medical daily. Branch emtricitabi Yes [id number] Take one [facility] ne-tenofovi 11-25 po daily ity of r alafen 00:00: [place] (DESCOVY) 00 Medical tablet Branch budesonide- 2020- No 1{puff} QD Inhale 1 Methodi formoteroL 6-25 06-[address] (SYMBICORT) 19:37: 00:00 morning. H ospita 160-4.5 02 :00 l mcg/actuati on inhaler hydrALAZINE 2020- No [id number] 50mg Q.[id number] Take 1 UT (Apresoline 10-31 [id number] tablet (50 Health ) 50 MG 00:00: 04:59 3D mg total) tablet 00 :00 by mouth 3 (three) times a day. hydrALAZINE 2020- No [id number] 50mg Q.[id number] Take 1 [facility] (Apresoline 10-31 [id number] tablet (50 Health ) 50 MG 00:00: 04:59 3D mg total) tablet 00 :00 by mouth 3 (three) times a day. hydrALAZINE 2020- No [id number] 50mg Q.[id number] Take 1 UT (Apresoline 10-31 [id number] tablet (50 Health ) 50 MG 00:00: 04:59 3D mg total) tablet 00 :00 by mouth 3 (three) times a day. hydrALAZINE 2020- No [id number] 50mg Q.[id number] Take 1 [facility] (Apresoline 10-31 [id number] tablet (50 Health ) 50 MG 00:00: 04:59 3D mg total) tablet 00 :00 by mouth 3 (three) times a day. Breztri 2020-0 Yes [facility] Aerosphere 10-29 Health 160-9-4.8 00:00: MCG/ACT 00 aerosol Breztri 2020-0 Yes [facility] Aerosphere 10-29 [facility] 160-9-4.8 00:00: MCG/ACT 00 aerosol Breztri 2020-0 Yes AL Aerosphere 10-29 [facility] 160-9-4.8 00:00: MCG/ACT 00 aerosol Breztri 2020-0 Yes [place] Aerosphere [facility] 160-9-4.8 00:00: MCG/ACT 00 aerosol albuterol 2020-0 Yes UT (2.5 6-02 Health MG/3ML) 00:00: 0.083% 00 nebulizer solution albuterol 2020-0 Yes UT (2.5 6-02 Health MG/3ML) 00:00: 0.083% 00 nebulizer solution albuterol 2020-0 Yes UT (2.5 6-02 Health MG/3ML) 00:00: 0.083% 00 nebulizer solution albuterol 0 Yes UT (2.5 6-02 Health MG/3ML) 00:00: 0.083% 00 nebulizer solution amiodarone 0 Yes UT (Pacerone) 5-31 Health 200 MG 00:00: tablet 00 amiodarone 0 Yes UT (Pacerone) 5-31 Health 200 MG 00:00: tablet 00 amiodarone 0 2020- No UT (Pacerone) 5-31 07-26 Health 200 MG 00:00: 00:00 tablet [...] tablet 00 mupirocin 0 Yes UT (Bactroban) 5-28 Health 2 % 00:00: ointment 00 mupirocin 0 Yes UT (Bactroban) 5-28 Health 2 % 00:00: ointment 00 mupirocin 2020-0 Yes UT (Bactroban) 5-28 Health 2 % 00:00: ointment 00 mupirocin 2020-0 Yes UT (Bactroban) 5-28 Health 2 % 00:00: ointment 00 nystatin 0 2020- No [id number] Q.25D Take 5 mL Methodi (MYCOSTATIN 517 - (500,000 st ) 100,000 00:00: 04:59 Units [...] (four) times a day for 10 days. LORazepam 2020-0 Yes UT (Ativan) 2 5-14 [...] ointment 00 topically every 12 (twelve) hours. Eliquis 5 Yes UT MG tablet 5-05 Health 00:00: 00 Eliquis 5 2020-0 Yes [facility] MG tablet 5-05 Health 00:00: 00 Eliquis 5 2020-0 Yes UT MG tablet 5-05 Health 00:00: 00 Eliquis 5 2020-0 Yes [facility] MG tablet 5-05 Health 00:00: 00 pantoprazol 2020-0 Yes UT e 4-20 Health (ProtoNix) 00:00: 40 MG EC 00 tablet pantoprazol 0 Yes UT e 4-20 Health (ProtoNix) 00:00: 40 MG EC 00 tablet pantoprazol Yes UT e 4-20 Health (ProtoNix) 00:00: 40 MG EC 00 tablet pantoprazol Yes UT e 4-20 Health (ProtoNix) 00:00: [...] ia 4-10 (Same as: l 14:00: Norvasc) [place] emtricitabi No Notes: Caesar lisa ne 200 MG / 4-10 (Same as: l tenofovir 14:00: Descovy) Herm ariel alafenamide 00 Non-formul 25 MG Oral nancy Tablet [Descovy] pantoprazol No Notes: Caesar lisa e 4-10 Tablet l 14:00: should not [place] 00 be chewed or crushed. (Same as: Protonix) Amiodarone No Notes: Memor ia 4-10 (Same as: l 14:00: Cordarone) [place] 00 Amlodipine No Notes: Memor ia 4-10 (Same as: l 14:00: Norvasc) [place] 00 emtricitabi No Notes: Caesar lisa ne 200 MG / 4-10 (Same as: l tenofovir 14:00: Descovy) Herm ariel alafenamide 00 Non-formul 25 MG Oral nancy Tablet [Descovy] Sertraline No Notes: Memor ia 4-10 (Same as: l 14:00: Zoloft) [place] 00 Sertraline No Notes: Memor ia 4-10 (Same as: l 14:00: Zoloft) [place] 00 pantoprazol No Notes: Caesar lisa e 4-10 Tablet l 14:00: should not [place] 00 be chewed or crushed. (Same as: Protonix) Amiodarone No Notes: Memor ia 4-10 (Same as: l 14:00: Cordarone) [place] 00 Amlodipine No Notes: Memor ia 4-10 (Same as: l 14:00: Norvasc) Mat[place] 00 emtricitabi No Notes: Caesar lisa ne [...] e 4-10 Tablet l 14:00: should not [place] 00 be chewed or crushed. (Same as: [...] e 4-10 Tablet l 14:00: should not [place] 00 be chewed or crushed. (Same as: [...] e 4-10 Tablet l 14:00: should not [place] 00 be chewed or crushed. (Same as: [...] Memoria 4-10 Same as: l 02:00: Eliquis [place] Hydralazine No Notes: Caesar lisa Hydrochlori 4-10 (Same as: l de 50 MG 02:00: Apresoline Her mitchell Oral Tablet 00 ) May interfere w/enteral feedings Take With Food Sucralfate No Notes: May M emoria 4-10 interfere l 02:00: w/enteral [place] 00 feeds - Take 1 hr before [...] Memoria 4-10 Same as: l 02:00: Eliquis [place] Hydralazine No Notes: Caesar lisa Hydrochlori 4-10 (Same as: l de 50 MG 02:00: Apresoline Her mit[place] Oral Tablet 00 ) May interfere w/enteral feedings Take With Food Sucralfate No Notes: May M emoria 4-10 interfere l 02:00: w/enteral [place] 00 feeds - Take 1 hr before [...] Memoria 4-10 Same as: l 02:00: Eliquis [place] 00 Hydralazine No Notes: Caesar lisa Hydrochlori 4-10 (Same as: l de 50 MG 02:00: Apresoline Her mit[place] Oral Tablet 00 ) May interfere w/enteral feedings Take With Food Sucralfate No Notes: May M emoria 4-10 interfere l 02:00: w/enteral [place] 00 feeds - Take 1 hr before or 2 hr after antacids, dairy pdt, meals & minerals - On empty stomach. For patients unable to swallow tablet, dissolve in 10mL - 30mL of water or juice and stir before giving. (Same As: Carafate) Saline No Notes: Memoria Flush 0.9% 4-10 (Same as: l 02:00: BD [place] Posiflush) Eliquis No Notes: Memoria 4-10 Same [...] not exceed l #3 00:12: 4gm/day of [place] acetaminop hen. (Same as: Tylenol with Codeine [...] not exceed l #3 00:12: 4gm/day of [place] acetaminop hen. (Same as: Tylenol with Codeine [...] l Tablet 22:00: Route: PO, Skylar nn [[facility] 00 Drug form: TAB, BID, Dosing Weight 97.273, kg, Start date: 08/29/20 17:00:00 CDT, Duration: 30 day, Stop date: 09/28/20 9:00:00 CDT, 0 Buspirone No Notes: Memori a 08-29 (Same As: l 22:00: BuSpar) Lisinopril No 40 mg, 1 Mem oria 4-09 tab, l 22:00: Route: PO, [place] 00 Drug form: TAB, BID, Dosing Weight 97.273, kg, Start date: 08/29/20 17:00:00 CDT, Duration: 30 day, Stop date: 09/28/20 9:00:00 CDT metoprolol 1-0 No 100 mg, 1 Me moria tartrate 4-09 tab, l 22:00: Route: PO, [place] Drug form: TAB, BID, Dosing Weight 97.273, kg, Start date: 08/29/20 17:00:00 CDT, Duration: 30 day, Stop date: 09/28/20 9:00:00 CDT Buspirone 1-0 No Notes: Memori a - (Same As: l 22:00: BuSpar) Raltegravir 1-0 No 400 mg, 1 M emoria 400 MG Oral 4-09 tab, l Tablet 22:00: Route: PO, Skylar nn [ISENTRESS] Drug form: TAB, BID, Dosing Weight 97.273, kg, Start date: 08/29/20 17:00:00 CDT, Duration: 30 day, Stop date: 09/28/20 9:00:00 CDT, 0 Lisinopril 2020-0 No 40 mg, 1 Mem oria 4- tab, l 22:00: Route: PO, [place] 00 Drug form: TAB, BID, Dosing Weight 97.273, kg, Start date: 08/29/20 17:00:00 CDT, Duration: 30 day, Stop date: 09/28/20 9:00:00 CDT metoprolol 1-0 No 100 mg, 1 Me moria tartrate - tab, l 22:00: Route: PO, [place] 00 Drug form: TAB, BID, Dosing Weight [...] Stop date: 09/28/20 9:00:00 CDT, 0 Buspirone 2021-0 No Notes: Memori a 08-29 (Same As: l 22:00: BuSpar) Lisinopril 2020-0 No 40 mg, 1 Mem oria 4-09 tab, l 22:00: Route: PO, [place] 00 Drug form: TAB, BID, Dosing Weight [...] l Tablet 22:00: Route: PO, Skylar nn [[facility]] 00 Drug form: TAB, BID, Dosing Weight 97.273, kg, Start date: 08/29/20 17:00:00 CDT, Duration: 30 day, Stop date: 09/28/20 9:00:00 CDT, 0 Buspirone 2020-0 No Notes: Memori a 08-29 (Same As: l 22:00: BuSpar) Lisinopril 2020-0 No 40 mg, 1 Mem oria - tab, l 22:00: Route: PO, [place] 00 Drug form: TAB, BID, Dosing Weight [...] oria 4-09 tab, l 22:00: Route: PO, Maryt Drug form: TAB, BID, Dosing Weight 97.273, kg, Start date: 08/29/20 17:00:00 CDT, Duration: 30 day, Stop date: 09/28/20 9:00:00 CDT metoprolol 2020-0 No 100 mg, 1 Me moria tartrate 4-09 tab, l 22:00: Route: PO, [place] 00 Drug form: TAB, BID, Dosing Weight [...] 08-29 (Same As: l 22:00: BuSpar) Lisinopril 2021-0 No 40 mg, 1 Mem oria 4-09 tab, l 22:00: Route: PO, [place] 00 Drug form: TAB, BID, Dosing Weight 97.273, kg, Start date: 08/29/20 17:00:00 CDT, Duration: 30 day, Stop date: 09/28/20 9:00:00 CDT metoprolol No 100 mg, 1 Me moria tartrate 4-09 tab, l 22:00: Route: PO, [place] 00 Drug form: TAB, BID, Dosing Weight [...] Notes: Memoria 4-09 (Same l 17:07: as:MORPhin [place] 00 e Sulfate) Morphine No Notes: Memoria 4-09 (Same l 17:07: as:MORPhin [place] 00 e Sulfate) Morphine No Notes: Memoria 4-09 (Same l 17:07: as:MORPhin [place] 00 e Sulfate) Morphine No Notes: Memoria 4-09 (Same l 17:07: as:MORPhin [place] 00 e Sulfate) Morphine No Notes: Memoria 4-09 (Same l 17:07: as:MORPhin [place] 00 e Sulfate) buPROPion No 150 mg, [...] 30 tab, 0 coated Refill(s), tablet Pharmacy: [facility] 149, 162.56, cm, 08/29/20 5:30:00 CDT, Height, 97.273, kg, 08/29/20 5:30:00 CDT, Weight pantoprazol 2021-0 Yes 40 mg = 1 M emoria e 40 mg 4-09 tab, PO, l oral 15:27: Daily, # Marty enteric 00 30 tab, 0 coated Refill(s), tablet Pharmacy: [facility] 149, 162.56, cm, 08/29/20 5:30:00 CDT, Height, 97.273, kg, 08/29/20 5:30:00 CDT, Weight pantoprazol 2021-0 Yes 40 mg = 1 M emoria e 40 mg 4-09 tab, PO, l oral 15:27: Daily, # [place] enteric 00 30 tab, 0 coated Refill(s), tablet Pharmacy: [facility] 149, 162.56, cm, 08/29/20 5:30:00 CDT, Height, 97.273, kg, 08/29/20 5:30:00 CDT, Weight pantoprazol 2021-0 Yes 40 mg = 1 M emoria e 40 mg 4-09 tab, PO, l oral 15:27: Daily, # [place] enteric 00 30 tab, 0 coated Refill(s), tablet Pharmacy: [facility] 149, 162.56, cm, 08/29/20 5:30:00 CDT, Height, 97.273, kg, 08/29/20 5:30:00 CDT, Weight pantoprazol 2021-0 Yes 40 mg = 1 M emoria e 40 mg 4-09 tab, PO, l oral 15:27: Daily, # [place] enteric 00 30 tab, 0 coated Refill(s), tablet Pharmacy: [facility] 149, 162.56, cm, 08/29/20 5:30:00 CDT, Height, 97.273, kg, 08/29/20 5:30:00 CDT, Weight pantoprazol 2021-0 Yes 40 mg = 1 M emoria e 40 mg 4-09 tab, PO, l oral 15:27: Daily, # [place] enteric 00 30 tab, 0 coated Refill(s), tablet Pharmacy: [facility] 149, 162.56, cm, 08/29/20 5:30:00 CDT, Height, 97.273, kg, 08/29/20 5:30:00 CDT, Weight pantoprazol 2020-0 Yes 40 mg = 1 M emoria e 40 mg 4-09 tab, PO, l oral 15:27: Daily, # [place] enteric 00 30 tab, 0 coated Refill(s), tablet Pharmacy: [facility] 149, 162.56, cm, 08/29/20 5:30:00 CDT, Height, 97.273, kg, 08/29/20 5:30:00 CDT, Weight pantoprazol 2020-0 No 40 mg = 1 M emoria e 40 mg 4-09 tab, PO, l oral 15:26: Daily, # [place] enteric 00 30 tab, 0 coated Refill(s) tablet sucralfate 2020-0 Yes 1 gm = 1 Mem oria 1 g oral 4-09 tab, PO, l tablet 15:26: Q12H, # 28 Skylar nn 00 tab, 0 Refill(s), Pharmacy: [place] [id number], 162.56, cm, 08/29/20 5:30:00 CDT, Height, 97.273, [...] Skylar nn 00 tab, 0 Refill(s), Pharmacy: [facility] 149, 162.56, cm, 08/29/20 5:30:00 CDT, Height, 97.273, kg, 08/29/20 5:30:00 CDT, Weight pantoprazol 2020-0 No 40 mg = 1 M emoria e 40 mg 4-09 tab, PO, l oral 15:26: Daily, # [place] enteric 00 30 tab, 0 coated Refill(s) tablet sucralfate 2020-0 Yes 1 gm = 1 Mem oria 1 g oral 4-09 tab, PO, l tablet 15:26: Q12H, # 28 Skylar nn 00 tab, 0 Refill(s), Pharmacy: [facility] 149, 162.56, cm, 08/29/20 5:30:00 [...] Skylar nn 00 tab, 0 Refill(s), Pharmacy: [facility] 149, 162.56, cm, 08/29/20 5:30:00 [...] Skylar nn 00 tab, 0 Refill(s), Pharmacy: [facility] 149, 162.56, cm, 08/29/20 5:30:00 [...] Skylar nn 00 tab, 0 Refill(s), Pharmacy: [facility] 149, 162.56, cm, 08/29/20 5:30:00 CDT, Height, 97.273, kg, 08/29/20 5:30:00 CDT, Weight pantoprazol No 40 mg = 1 M emoria e 40 mg 4-09 tab, PO, l oral 15:26: Daily, # [place] enteric 00 30 tab, 0 coated Refill(s) tablet sucralfate Yes 1 gm = 1 Mem oria 1 g oral 4-09 tab, PO, l tablet 15:26: Q12H, # 28 Skylar nn 00 tab, 0 Refill(s), Pharmacy: [facility] 149, 162.56, cm, 08/29/20 5:30:00 CDT, Height, 97.273, kg, 08/29/20 5:30:00 CDT, Weight Saline No Notes: Memoria Flush 0.9% 4-09 (Same as: l 15:25: BD [place] 00 Posiflush) Lorazepam No Notes: Memori a 4-09 (Same as: l 15:25: Ativan) [place] Saline No Notes: Memoria Flush 0.9% 4-09 (Same as: l 15:25: BD [place] 00 Posiflush) Lorazepam No Notes: Memori a 4-09 (Same as: l 15:25: Ativan) [place] 00 Saline No Notes: Memoria Flush 0.9% 4-09 (Same as: l 15:25: BD [place] 00 Posiflush) Lorazepam No Notes: Memori a 4-09 (Same as: l 15:25: Ativan) [place] 00 Saline No Notes: Memoria Flush 0.9% 4-09 (Same as: l 15:25: BD [place] 00 Posiflush) Saline No Notes: Memoria Flush 0.9% 4-09 (Same as: l 15:25: BD [place] 00 Posiflush) Lorazepam No Notes: Memori a [...] Drug form: l mg + 15:00: INJ, [place] 00 Dosing Weight 97.3, kg, Start date: 08/29/20 10:00:00 CDT, Stop date: 08/29/20 11:00:00 CDT Isuprel HCl No Route: IV, Memoria (ANES) 0.2 08-29 Drug form: l mg + 15:00: INJ, [place] 00 Dosing Weight 97.3, kg, Start date: 08/29/20 10:00:00 CDT, Stop date: 08/29/20 11:00:00 CDT Isuprel HCl No Route: IV, Memoria (ANES) 0.2 08-29 Drug form: l mg + 15:00: INJ, Marty Dosing Weight 97.3, kg, Start date: 08/29/20 10:00:00 CDT, Stop date: 08/29/20 11:00:00 CDT Isuprel HCl 2020-0 No Route: IV, Memoria (ANES) 0.2 08-29 Drug form: l mg + 15:00: INJ, Marty Dosing Weight 97.3, kg, Start date: 08/29/20 10:00:00 CDT, Stop date: 08/29/20 11:00:00 CDT Isuprel HCl 2020-0 No Route: IV, Memoria (ANES) 0.2 08-29 Drug form: l mg + 15:00: INJ, [place] 00 Dosing Weight 97.3, kg, Start date: 08/29/20 10:00:00 CDT, Stop date: 08/29/20 11:00:00 CDT Isuprel HCl 2020-0 No Route: IV, Memoria (ANES) 0.2 08-29 Drug form: l mg + 15:00: INJ, [place] 00 Dosing Weight 97.3, kg, Start date: [...] ONCE, Stop date: 08/29/20 9:18:00 CDT heparin No Route: IV, Caesar lisa (ANES) 08-29 Drug form: l 14:18: INJ, ONCE, Stop date: 08/29/20 9:18:00 CDT heparin No Route: IV, Caesar lisa (ANES) 08-29 Drug form: l 14:18: INJ, ONCE, Stop date: 08/29/20 9:18:00 CDT heparin No Route: IV, Caesar lisa (ANES) 08-29 Drug form: l 14:18: INJ, ONCE, Stop date: 08/29/20 9:18:00 CDT heparin No Route: IV, Caesar lisa (ANES) 08-29 Drug form: l 14:18: INJ, ONCE, Stop date: 08/29/20 9:18:00 CDT heparin No Route: IV, Caesar lisa (ANES) 08-29 Drug form: l 14:18: INJ, ONCE, Stop date: 08/29/20 9:18:00 CDT Labetalol No 10 mg, Memori a 08-29 Route: l 14:01: IVP, [place] 00 Q5Min, Dosing Weight 97.273, kg, PRN [...] Memori a 08-29 Route: l 14:01: IVP, [place] 00 Q2MIN, Dosing Weight 97.273, kg, PRN [...] 08-29 Route: PO, l 14:01: Drug form: [place] 00 TAB, ONCE, Dosing Weight 97.273, kg, [...] lisa 08-29 Route: l 14:01: IVP, PRN, [place] 00 Dosing Weight 97.273, kg, PRN Benzodiaze [...] times Acetaminoph 2020-0 No 1,000 mg, M erickria en 08-29 Route: PO, l 14:01: Drug form: [place] 00 TAB, ONCE, Dosing Weight 97.273, kg, [...] oria ne 08-29 Route: l 14:01: IVP, [place] 00 Q5Min, Dosing Weight 97.273, kg, PRN Pain Score 7-10, Start date: 08/29/20 9:01:00 CDT, Duration: 4 doses or times, Stop date: Limited # of times Flumazenil 2020-0 No 0.2 mg, Caesar lisa 08-29 Route: l 14:01: IVP, PRN, [place] 00 Dosing Weight 97.273, kg, PRN Benzodiaze pine Reversal, Initial dose, Start date: 08/29/20 9:01:00 CDT, Duration: 30 day, Stop date: 09/28/20 9:00:00 CDT Naloxone 2020-0 No 0.4 mg, Memori a 08-29 Route: l 14:01: IVP, [place] 00 Q2MIN, Dosing Weight 97.273, kg, PRN Narcotic Reversal, Start date: 08/29/20 9:01:00 CDT, Duration: 8 doses or times, Stop date: Limited # of times Ondansetron 2020-0 No 4 mg, Memor ia 08-29 Route: l 14:01: IVP, ONCE, [place] 00 Dosing Weight 97.273, kg, PRN Nausea [...] 08-29 Route: PO, l 14:01: Drug form: [place] 00 TAB, ONCE, Dosing Weight 97.273, kg, PRN Pain Score 1-3, Start date: 08/29/20 9:01:00 CDT Oxycodone 2021-0 No 5 mg, Memoria Hydrochlori - Route: PO, l de 5 MG 14:01: [...] Memori a 08-29 Route: l 14:01: IVP, [place] 00 Q5Min, Dosing Weight 97.273, kg, PRN Elevated BP, Start date: 08/29/20 9:01:00 CDT, Duration: 5 doses or times, Stop date: Limited # of times Acetaminoph 2021-0 No 1,000 mg, M emoria en 08-29 Route: PO, l 14:01: Drug form: [place] 00 TAB, ONCE, Dosing Weight 97.273, kg, PRN Pain Score 1-3, Start date: 08/29/20 9:01:00 CDT Oxycodone 2021-0 No 5 mg, Memoria Hydrochlori -09 Route: PO, l de 5 MG 14:01: [...] 08-29 Route: l 14:01: IVP, PRN, Marty Dosing Weight 97.273, kg, PRN Benzodiaze pine Reversal, Initial dose, Start date: 08/29/20 9:01:00 CDT, Duration: 30 day, Stop date: 09/28/20 9:00:00 CDT Ondansetron 2021-0 No 4 mg, Memor ia 08-29 Route: l 14:01: IVP, ONCE, [place] 00 Dosing Weight 97.273, kg, PRN Nausea & Vomiting, Start date: 08/29/20 9:01:00 CDT Naloxone 2021-0 No 0.4 mg, Memori a 08-29 Route: l 14:01: IVP, [place] 00 Q2MIN, Dosing Weight 97.273, kg, PRN [...] de 5 MG 14:01: Drug form: Herm raiel Oral Tablet 00 TAB, Q4H, Dosing Weight [...] lisa 08-29 Route: l 14:01: IVP, PRN, [place] 00 Dosing Weight 97.273, kg, PRN Benzodiaze pine Reversal, Initial dose, Start date: 08/29/20 9:01:00 CDT, Duration: 30 day, Stop date: 09/28/20 9:00:00 CDT Naloxone 1-0 No 0.4 mg, Memori a 08-29 Route: l 14:01: IVP, [place] 00 Q2MIN, Dosing Weight 97.273, kg, PRN [...] oria ne 08-29 Route: l 14:01: IVP, [place] 00 Q5Min, Dosing Weight 97.273, kg, PRN Pain Score 7-10, Start date: 08/29/20 9:01:00 CDT, Duration: 4 doses or times, Stop date: Limited # of times Flumazenil 1-0 No 0.2 mg, Caesar lisa 08-29 Route: l 14:01: IVP, PRN, Dosing Weight 97.273, kg, PRN Benzodiaze pine Reversal, Initial dose, Start date: 08/29/20 9:01:00 CDT, Duration: 30 day, Stop date: 09/28/20 9:00:00 CDT Naloxone 0 No 0.4 mg, Memori a 08-29 Route: l 14:01: IVP, Q2MIN, Dosing Weight 97.273, kg, PRN Narcotic [...] ONCE, Stop date: 08/29/20 8:52:00 CDT rocuronium 0 No Route: IV, M emoria (ANES) 08-29 Drug form: l 13:52: INJ, ONCE, Stop date: 08/29/20 8:52:00 CDT propofol 2020-0 No Route: IV, Mem oria (ANES) 08-29 Drug form: l 13:52: INJ, ONCE, Stop date: 08/29/20 8:52:00 CDT dexamethaso 0 No Route: IV, Memoria ne (ANES) 08-29 Drug form: l 13:52: INJ, ONCE, Stop date: 08/29/20 8:52:00 CDT lidocaine 0 No Route: IV, Me moria (ANES) 08-29 Drug form: l 13:52: INJ, ONCE, Stop date: 08/29/20 8:52:00 CDT rocuronium 0 No Route: IV, M emoria (ANES) 08-29 [...] ONCE, Stop date: 08/29/20 8:52:00 CDT lidocaine 202-0 No Route: IV, Me moria (ANES) 08-29 [...] 2020-0 No Route: IV, Memoria ne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 3.430.2.7 Hospit a .3.753121 l .8 2020-09-05 2020-09-05 Surgery [facility], 1.2.840.1 [id number] 97489 10052 Methodi 11:30:00 13:15:[address] 3.430.2.7 Hospit a .3.572865 l .8 2020-09-05 2020-09-05 Anesthesia [facility], 1.2.840.1 [id number] 285 [id number] Methodi 11:27:00 12:20:00 Event Sarvalentinawathi 19090.1.1 243 s t V. 3.430.2.7 Hospit a .3.952189 l .8 2020-09-05 2020-09-05 Travel 1.2.840.1 1.2.167.853 9937 312495 Methodi 00:00:00 00:00:[address] 3.430.2.7 0.2.7.3.698 Ho spita .3.783382 084.8 l .8 2020-09-04 2020-09-04 [facility], 1.2.840.1 [id number] Methodi 00:00:00 00:00:00 Sarai Lieberman 49382.1.1 762 s t 3.430.2.7 Hospit a .3.069704 l .8 2020-09-02 2020-09-02 Telephone [facility], 1.2.840.1 [id number] Methodi 00:00:00 00:00:00 Sarai Lieberman 00665.1.1 344 s t 3.430.2.7 Hospit a .3.029778 l .8 2020-09-01 2020-09-01 Office [facility], 1.2.840.1 [id number] 74089 80515 Methodi 08:42:53 09:50:51 Visit Ray 64053.1.[address] 3.430.2.7 Hospit a .3.829021 l .8 2020-09-01 2020-09-01 Telephone [facility], 1.2.840.8 [id number] 21 [id number] Methodi 00:00:00 00:00:[address] 3.430.2.7 Hospit a .3.348015 l .8 2020-09-01 2020-09-01 Travel 1.2.840.1 1.2.606.411 5018 101124 Methodi 00:00:00 00:00:[address] 3.430.2.7 0.2.7.3.698 spita .3.990722 084.8 l .8 2020-08-29 2020-08-30 Bedded [facility] [id number] 275 [facility] 10:20:00 14:10:00 Outpatient [facility] 00 l [facility] 2020-08-29 2020-08-29 Outpatient [facility] 7500 [facility] 05:20:00 05:20:00 2020-08-27 2020-08-27 [facility], 1.2.840.1 [id number] 2100 [id number] Methodi 09:55:15 23:59:00 Encounter Ray [address]959.1.[address] 3.430.2.7 Hospit a .3.691523 l .8 2020-08-27 2020-08-27 Travel 1.2.840.1 1.2.868.245 2156 937126 Methodi 00:00:00 00:00:[address] 3.430.2.7 0.2.7.3.698 Ho spita .3.563306 084.8 l .8 2020-08-21 2020-08-21 Travel 1.2.840.1 1.2.736.643 5457 020462 Methodi 00:00:00 00:00:[address] 3.430.2.7 0.2.7.3.698 Ho spita .3.013685 084.8 l .8 2020-08-19 2020-08-19 Telephone Meli, 1.2.840.1 [id number] 078 [id number] Methodi 00:00:00 00:00:[address] 3.430.2.7 Hospit a .3.237330 l .8 2020-08-19 2020-08-19 Travel 1.2.840.1 1.2.980.394 2598 235559 Methodi 00:00:00 00:00:[address] 3.430.2.7 0.2.7.3.698 Ho spita .3.481752 084.8 l .8 2020-08-18 2020-08-18 Orders Carol Ann, 1.2.840.9 [id number] 2 [id number] Methodi 00:00:00 00:00:00 Only Sarai Lieberman 16294.1.1 410 s t 3.430.2.7 Hospit a .3.457817 l .8 2020-08-18 2020-08-18 Travel 1.2.840.1 1.2.486.087 5797 910869 Methodi 00:00:00 00:00:[address] 3.430.2.7 0.2.7.3.698 Ho spita .3.983655 084.8 l .8 2020-08-15 2020-08-15 Abstract Clark, 1.2.840.1 [id number] Methodi 00:00:00 00:00:[address] 3.430.2.7 Hospit a .3.905980 l .8 2020-07-02 2020-08-06 Clinical 1.2.840.1 [id number] 55042 Methodi 10:40:46 01:45:[address] 3.430.2.7 Hospit a .3.515797 l .8 2020-07-30 2020-07-30 Travel 1.2.840.1 1.2.227.015 2422 375786 Methodi 00:00:00 00:00:[address] 3.430.2.7 0.2.7.3.698 Ho spita .3.109456 084.8 l .8 2020-07-28 2020-07-28 Office [facility], 1.2.840.1 [id number] 05233 Methodi 08:35:45 10:11:52 Visit Ray 70808.1.[address] 3.430.2.7 Hospit a .3.472425 l .8 2020-07-28 2020-07-28 Telephone Rodas, 1.2.840.1 [id number] 2100 051804 Methodi 00:00:00 00:00:[address] 3.430.2.7 Hospit a .3.982147 l .8 2020-07-28 2020-07-28 Travel 1.2.840.1 1.2.011.996 3017 259904 Methodi 00:00:00 00:00:[address] 3.430.2.7 0.2.7.3.698 Ho spita .3.538646 084.8 l .8 2020-07-25 2020-07-25 Telephone Carol Ann, 1.2.840.5 [id number] Methodi 00:00:00 00:00:00 Sarai Lieberman 09803.1.1 314 s t 3.430.2.7 Hospit a .3.938458 l .8 2020-07-25 2020-07-25 Travel 1.2.840.1 1.2.310.758 9435 365361 Methodi 00:00:00 00:00:[address] 3.430.2.7 0.2.7.3.698 Ho spita .3.337993 084.8 l .8 2020-07-23 2020-07-23 Clinical Tori, 1.2.840.1 [id number] 56057 38694 Methodi 08:39:40 08:44:40 Support Hoang 46991.1.[address] P. 3.430.2.7 Hospit a .3.313863 l .8 2020-07-23 2020-07-23 Travel 1.2.840.1 1.2.074.655 9125 646513 Methodi 00:00:00 00:00:[address] 3.430.2.7 0.2.7.3.698 Ho spita .3.158585 084.8 l .8 2020-07-11 2020-07-11 Travel 1.2.840.1 1.2.767.033 8083 067654 Methodi 00:00:00 00:00:[address] 3.430.2.7 0.2.7.3.698 Ho spita .3.452911 084.8 l .8 2020-07-02 2020-07-02 Telephone Yazmin, 1.2.840.9 [id number] Methodi 00:00:00 00:00:[address] 3.430.2.7 Hospit a .3.890117 l .8 2020-07-02 2020-07-02 Travel 1.2.840.1 1.2.050.846 5345 275869 Methodi 00:00:00 00:00:[address] 3.430.2.7 0.2.7.3.698 Ho spita .3.004115 084.8 l .8 2020-06-23 2020-06-23 Office Yazmin, 1.2.840.1 [id number] 41296 07710 Methodi 09:36:17 11:00:44 Visit Ray 58320.1.[address] 3.430.2.7 Hospit a .3.419324 l .8 2020-06-23 2020-06-23 Telephone Clark, 1.2.840.1 [id number] 2099 261757 Methodi 00:00:00 00:00:[address] 3.430.2.7 Hospit a .3.183889 l .8 2020-06-23 2020-06-23 Travel 1.2.840.1 1.2.979.710 9467 244815 Methodi 00:00:00 00:00:[address] 3.430.2.7 0.2.7.3.698 Ho spita .3.667808 084.8 l .8 2020-06-09 2020-06-09 Telephone Yazmin, 1.2.840.5 [id number] Methodi 00:00:00 00:00:[address] 3.430.2.7 Hospit a .3.786533 l .8 2020-06-06 2020-06-06 Refill Quinn, 1.2.840.1 [id number] 843388 4918 Methodi 00:00:00 00:00:00 Eh Lemus 24266.1.[address] 3.430.2.7 Hospit a .3.112997 l .8 2020-06-03 2020-06-03 Telephone Cade, 1.2.840.7 [id number] Methodi 00:00:00 00:00:[address] 3.430.2.7 Hospit a .3.040477 l .8 2020-06-02 2020-06-02 Telephone [facility], 1.2.840.3 [id number] Methodi 00:00:00 00:00:[address] 3.430.2.7 Hospit a .3.409293 l .8 2020-05-13 2020-05-13 Orders [facility], 1.2.840.1 [id number] 2099 922216 Methodi 00:00:00 00:00:00 Only Historical 81796.1.1 108 s t 3.430.2.7 Hospit a .3.966328 l .8 2020-05-09 2020-05-09 Telephone [facility], 1.2.840.1 [id number] Methodi 00:00:00 00:00:00 Sarai Lieberman 40434.1.1 660 s t 3.430.2.7 Hospit a .3.652257 l .8 2020-05-09 2020-05-09 Telephone [facility], 1.2.840.6 [id number] Methodi 00:00:00 00:00:[address] 3.430.2.7 Hospit a .3.368441 l .8 2020-05-08 2020-05-08 Telephone [facility], 1.2.840.6 [id number] Methodi 00:00:00 00:00:[address] 3.430.2.7 Hospit a .3.634441 l .8 2020-05-07 2020-05-07 Telephone [facility], 1.2.840.5 [id number] 21 [id number] Methodi 00:00:00 00:00:[address] 3.430.2.7 Hospit a .3.560643 l .8 2020-05-05 2020-05-05 Telephone [facility], 1.2.840.8 [id number] 21 [id number] Methodi 00:00:00 00:00:[address] 3.430.2.7 Hospit a .3.950532 l .8 2020-04-25 2020-05-03 [facility], 1.2.840.1 [id number] 2100 005287 Methodi 17:33:00 13:39:00 Encounter Ray [address]20.1.[address] 3.430.2.7 Hospit a .3.120474 l .8 2020-04-28 2020-04-28 Anesthesia Tomas Pinon 1.2.840.1 [id number] Methodi 13:38:00 19:40:00 Event Hossein Justine Shaheed 04178.1.[address] 3.430.2.7 Hospit a .3.916221 l .8 2020-04-28 2020-04-28 [facility], 1.2.840.1 [id number] 40474 04376 Methodi 13:00:00 17:10:[address] 3.430.2.7 Hospit a .3.269440 l .8 2020-04-25 2020-04-25 [facility], 1.2.840.1 [id number] 2100 962721 Methodi 10:00:00 17:32:00 Encounter Ray [address].1.[address] 3.430.2.7 Hospit a .3.442197 l .8 2020-04-25 2020-04-25 [facility], 1.2.840.1 [id number] 96705 99535 Methodi 11:43:50 13:44:26 Visit Ray 19964.1.[address] 3.430.2.7 Hospit a .3.579453 l .8 2020-04-25 2020-04-25 Travel 1.2.840.1 1.2.247.294 4454 423860 Methodi 00:00:00 00:00:[address] 3.430.2.7 0.2.7.3.698 Ho spita .3.581658 084.8 l .8 2020-04-24 2020-04-24 [facility] 1.2.840.1 [id number] 2 [id number] Methodi 00:00:00 00:00:00 Surgery Sarai Corbin. 23078.1.1 524 s t 3.430.2.7 Hospit a .3.540908 l .8 2020-04-22 2020-04-22 Telephone Meli, 1.2.840.1 [id number] 660 [id number] Methodi 00:00:00 00:00:[address] 3.430.2.7 Hospit a .3.122489 l .8 2020-04-22 2020-04-22 Travel 1.2.840.1 1.2.806.615 4418 696368 Methodi 00:00:00 00:00:[address] 3.430.2.7 0.2.7.3.698 Ho spita .3.993723 084.8 l .8 2020-04-21 2020-04-21 Emergency [facility].2.840.1 [id number] 2 [id number] Methodi 06:51:00 10:43:[address] 3.430.2.7 Hospit a .3.517552 l .8 2020-04-21 2020-04-21 Orders [facility], 1.2.840.1 [id number] 21 [id number] Methodi 00:00:00 00:00:00 Only Sarai M. 45105.1.1 550 s t 3.430.2.7 Hospit a .3.227992 l .8 2020-04-16 2020-04-16 Telephone Carol Ann, 1.2.840.1 [id number] Methodi 00:00:00 00:00:00 Sarai Lieberman 68192.1.1 673 s t 3.430.2.7 Hospit a .3.756149 l .8 2020-04-10 2020-04-10 Telephone Yazmin, 1.2.840.7 [id number] Methodi 00:00:00 00:00:[address] 3.430.2.7 Hospit a .3.743568 l .8 2020-04-07 2020-04-07 Telephone Nahum, 1.2.840.1 [id number] 2099 943896 Methodi 00:00:00 00:00:[address] 3.430.2.7 Hospit a .3.201451 l .8 2020-04-01 2020-04-01 Orders Provider, 1.2.840.1 [id number] 2100 028574 Methodi 00:00:00 00:00:00 Only Historical 83038.1.1 049 s t 3.430.2.7 Hospit a .3.454965 l .8 2020-03-31 2020-03-31 Travel 1.2.840.1 1.2.450.923 3834 870719 Methodi 00:00:00 00:00:[address] 3.430.2.7 0.2.7.3.698 Ho spita .3.596822 084.8 l .8 2020-03-27 2020-03-27 Telephone Paula, Min 1.2.840.4 [id number] Methodi 00:00:00 00:00:[address] 3.430.2.7 Hospit a .3.655864 l .8 Results Test Description Test Time Test Comments Results Result Comments Source Gastrointestinal panel 2020-12-09 04:35:05 Test Item Value Reference Range Interpretation Comme nts Adenovirus 40/41 PCR (test code = Not Detected Specimen InformationSpecimen 7113) Source: StoolSp ecimen Site: Nonpreserved Astrovirus PCR (test code = 4790) Not Detected Campylobacter PCR (test code = Not Detected 7114) Clostridioides difficile PCR Not Detected (test code [...] Rotavirus PCR (test code = Not Detected 9069619) Salmonella PCR (test code = 4783) Not [...] PCR (test code = Not Detected 7124) [facility] [id number] 19:17:40EXAMINATION: XR ABDOMEN 1 VW CLINICAL HISTORY: R19.7 Diarrhea unspecified, R14.0 Abdominal distension (gaseous), abdominal bloating COMPARISON: 04/30/2020 IMPRESSION:1.Moderate scattered stool within the colon. No bowel obstruction. Osseous structures are stable. Cholecystectomy clips are noted. [id number] Interface, Radiology Results - 12/08/2020 2:20 PM CDT EXAMINATION: XR ABDOMEN 1 VWCLINICAL HISTORY: R19.7 Diarrhea unspecified, R14.0 Abdominal distension (gaseous), abdominal bloatingCOMPARISON: 04/30/2020IMPRESSION:1.Moderate scattered stool within the colon. No bowel obstruction. Osseous structures are stable. Cholecystectomy clips are noted.[id number] [id number] 19:41:02EXAMINATION: OR FL < 1 HOUR C-arm fluoroscopy was requested in OR. Location: [facility] OR room 6 Procedure: EGD WITH BOTOX INJECTION INTO THE PYLORUS, ENDOFLIP, ON TABLE ESOPHAGRAM (N/A ) Start: 1140 End:1222 Fluoro Time: .19sec Dose: 7.8mGy Tech: A.B IMPRESSION: Intraoperative fluoroscopic images. Radiologist was not present during the examination.Separate operative report will be issued by the physician performing the procedure. [id number] Interface, Radiology Results 10/08/2020 2:44 PM CDT EXAMINATION: OR FL < 1 HOURC- arm fluoroscopy was requested in OR. Location: [facility] OR room 6 Procedure: EGD WITH BOTOX INJECTION INTO THE PYLORUS, ENDOFLIP, ON TABLE ESOPHAGRAM (N/A ) Start: 1140 End:1222 FluoroTime: .19sec Dose: 7.8mGy Tech: A.BIMPRESSION:Intraoperative fluoroscopic images. Radiologist was not present during the examination.Separate operative report will be issued by the physician performingthe procedure.[id number] 2020-09-08 19:30:47 Test Item Value Reference Range Interpretation Comments Case number (test [id number] code = [id number]) Surgical pathology See link below for PDF report (test code = Lab Report 2255) Result status (test This is Supplemental code = 2730795) Report for [id number] [facility] Chest 1 Vw [id number] 23:06:58EXAMINATION: XR CHEST 1 VW PORTABLE HISTORY: [...] enlarged, similar to prior. Bilateral shoulder arthroplasties. [id number] Interface, Radiology Results Incoming - 09/06/2020 6:09PM [...] silhouette is enlarged, similar to prior.Bilateral shoulder arthroplasties.[facility]-[id number] [facility] CenterLajfluaoEvyknl8773-43-77 16:47:23Kirit Flood MD 09/05/2020 11:[address]: [...] RSI: Yes Number of Attempts at Approach: [address] [place] [address] 12 tlcb1512-23-12 23:21:56 Test Item Value Reference Range Interpretation [...] T wave abnormality, consider anterior ischemia-Abnormal ECG- [facility] qualitative [id number] 22:48:41 Test Item Value Reference Range Interpretation Comments Interpretation (test Negative results do code = 1848353) not preclude 2019-nCoV infection and should not be used as the sole basis for treatment or other patient management decisions. Negative results must be combined with clinical observations, patient history, and epidemiological information. COVID-19 qualitative Not-Detected Not-Detected RT-PCR result (test code = 53447-9) COVID-19 qualitative See link below for C ase Number: RT-PCR (test code = PDF Lab Report [id number]) [facility]2021-04-09 16:31:00 Test Item Value Reference Range Interpretation Comments POC Activated Clotting Time (test code 153 s = POC Activated Clotting Time) [facility] HospitalAqkxcvoPFFVFAPJKR5141-25-57 16:31:00 Test Item Value Reference Range Interpretation Comments POC Activated Clotting Time (test code 153 s = POC Activated Clotting Time) [facility] HospitalHpxojpyPCIXAXMHCS2389-87-80 16:31:00 Test Item Value Reference Range Interpretation Comments POC Activated Clotting Time (test code 153 s = POC Activated Clotting Time) [facility] HospitalJzjckddWMLEIZURUN2365-94-10 16:31:00 Test Item Value Reference Range Interpretation Comments POC Activated Clotting Time (test code 153 s = POC Activated Clotting Time) [facility] HospitalZtnkbprJVHXURGMDP1042-33-95 16:31:00 Test Item Value Reference Range Interpretation Comments POC Activated Clotting Time (test code 153 s = POC Activated Clotting Time) [facility] HospitalWontqawIJBYHIKWTW7997-71-58 16:31:00 Test Item Value Reference Range Interpretation Comments POC Activated Clotting Time (test code 153 s = POC Activated Clotting Time) [facility] HospitalRuveygwZZWBFCSGPO4089-70-15 16:31:00 Test Item Value Reference Range Interpretation Comments POC Activated Clotting Time (test code 153 s = POC Activated Clotting Time) [facility] HospitalEtbudrrSMUHYDIKHM3441-57-39 14:37:00 Test Item Value Reference Range Interpretation Comments POC Activated Clotting Time (test code 454 s = POC Activated Clotting Time) [facility] HospitalQfalmobONBBTSLJJR6339-50-65 14:37:00 Test Item Value Reference Range Interpretation Comments POC Activated Clotting Time (test code 454 s = POC Activated Clotting Time) [facility] HospitalScmiwnaCFTOARZVRR8302-74-68 14:37:00 Test Item Value Reference Range Interpretation Comments POC Activated Clotting Time (test code 454 s = POC Activated Clotting Time) [facility] HospitalXoazkqoPFYSCXWUMD5871-66-04 14:37:00 Test Item Value Reference Range Interpretation Comments POC Activated Clotting Time (test code 454 s = POC Activated Clotting Time) [facility] HospitalUnfnidhUQZWQLMSCJ5145-39-03 14:37:00 Test Item Value Reference Range Interpretation Comments POC Activated Clotting Time (test code 454 s = POC Activated Clotting Time) [facility] HospitalUysdwjoSVUDZUCXBD9690-66-47 14:37:00 Test Item Value Reference Range Interpretation Comments POC Activated Clotting Time (test code 454 s = POC Activated Clotting Time) [facility] HospitalMpknfzmERTUCHXXJW2787-34-52 14:37:00 Test Item Value Reference Range Interpretation Comments POC Activated Clotting Time (test code 454 s = POC Activated Clotting Time) [facility] HospitalKkgagmxUCVPJXNLSG9687-73-15 14:13:00 Test Item Value Reference Range Interpretation Comments POC Activated Clotting Time (test code 354 s = POC Activated Clotting Time) [facility] HospitalGxsfrnnEMUNPDKEET9194-13-29 14:13:00 Test Item Value Reference Range Interpretation Comments POC Activated Clotting Time (test code 354 s = POC Activated Clotting Time) [facility] HospitalCjfgndrSTBBEHZUQZ4593-47-33 14:13:00 Test Item Value Reference Range Interpretation Comments POC Activated Clotting Time (test code 354 s = POC Activated Clotting Time) [facility] HospitalXmhtrxvKGYHMBOINV3652-49-23 14:13:00 Test Item Value Reference Range Interpretation Comments POC Activated Clotting Time (test code 354 s = POC Activated Clotting Time) [facility] HospitalVyeuftpVTKQDOLRHC4987-44-42 14:13:00 Test Item Value Reference Range Interpretation Comments POC Activated Clotting Time (test code 354 s = POC Activated Clotting Time) [facility] HospitalVmoflmuBIFNALIMOG7379-14-16 14:13:00 Test Item Value Reference Range Interpretation Comments POC Activated Clotting Time (test code 354 s = POC Activated Clotting Time) [facility] HospitalTnniwpzCMJSMXREKG8089-87-40 14:13:00 Test Item Value Reference Range Interpretation Comments POC Activated Clotting Time (test code 354 s = POC Activated Clotting Time) [facility] MRKMBHA4906-02-94 10:37:00Negative (08/29/20 5:37 AM) [facility] TAROH6375-55-35 10:37:15756Jqgbxjxh HermannCHEM PANEL 2020-08-29 10:37:0028[facility]annCHE[facility] HKDJG8344-02-48 10:37:001.01[facility]annCHEM GOESK2180-07-54 10:37:84191Dspwpzqh HermannCHEM QHPUO2277-40-19 10:37:003.8[facility]annCHEM SQRBW8923-73-91 10:37:10824Pmxbydek HermannCHEM DUENY7343-38-11 10:37:0028[facility]annCHEM JGCSR8224-22-30 10:37:009.8 [facility]annCHE[facility] REMOA2965-67-32 10:37:0011.8[facility]annCHEM PANEL 2020-08-29 10:37:0059[facility]annCHEM SBRAF2941-74-58 10:37:002.9[facility] IwixtxiKAYJBNBAQN2617-79-49 10:37:006.8[facility] OxjhddiUTYVBFICOD3041-34-91 10:37:004.47[facility] IopzcviYNCKQGTTJB8599-48-67 10:37:0010.6[facility] QJZCGLNERY3480-69-42 10:37:0034.0[facility] VobhpwdLHJUJGZBZO7635-08-57 10:37:00 76.1[facility] FjeattmGGUVFRHVKE9117-64-29 10:37:00 Test Item Value Reference Range Interpretation Comments MCH (test code = MCH) 23.8 pg 27.0-31.0 [facility] RpvssjeQBPISSMEFO4121-97-59 10:37:0031.3[facility]annHEMATOLOGY 2020-08-29 10:37:0018.2[facility] JlmcoiuNINDRHJGEF8485-71-60 10:37:36044Isacwtdi AofxiltUANAEPJLGH4141-53-63 10:37:007.5[facility] ScocbybCKQGJQWUNA3058-04-90 10:37:00 Test Item Value Reference Range Interpretation Comments PT (test code = PT) 12.8 s 12.0-14.7 [facility] IjoginjHAJEQCIWWD8516-55-60 10:37:00 Test Item Value Reference Range Interpretation Comments INR (test code = INR) 0.97 1 0.85-1.17 [facility] EgritljGASQIBARGC4123-86-73 10:37:00 Test Item Value Reference Range Interpretation Comments PTT (test code = PTT) 25.0 s 22.9-35.8 [facility] HzddcenJWIQBRPFVU4866-53-95 10:37:0070.5[facility]annHEMATOLOGY 2020-08-29 10:37:0018.8[facility] IauhemuUIQTNMBGQD3940-94-75 10:37:009.5[facility] CbjdubyKJGIAFHGFJ9402-26-03 10:37:000.9[facility] QxlvniiXGDTYJXEBR2408-13-55 10:37:000.3[facility] DjabnqtQJPTWGBFSA8078-80-33 10:37:004.8[facility] [place] ZINSVHAPBO6221-25-48 10:37:001.3[facility] JhvicalUQIQBLXMKJ1387-04-62 10:37:000.6 [facility] ZcitpdzTACEKWTJWZ4253-65-03 10:37:000.1[facility]annHEMATOLOGY 2020-08-29 10:37:001+ *ABN*(08/29/20 5:37 AM)[facility] DhehrlwKMTZKZZMWI5377-99-48 10:37:00Not Detected (08/29/20 5:37 AM)[facility]ann[facility] BANK RESULTS 2020-08-29 10:37:00Negative (08/29/20 5:37 AM)[facility] HermannCHEM KPMHS0622-47-91 10:37:75630Ezboxipx HermannCHEM VGDPA8003-26-32 10:37:0028[facility]annCHEM NGEAE1474-09-02 10:37:001.01[facility]annCHEM DJVLI2607-56-78 10:37:66336 [facility] XAPGA1697-23-54 10:37:003.8[facility]annCHEM PANEL 2020-08-29 10:37:52286Ybbigcwn HermannCHEM HGEHX9875-69-12 10:37:0028[facility]annCHEM ETIUD7517-31-27 10:37:009.8[facility]annCHEM LTCNX5225-25-31 10:37:0011.8[facility]annCHEM BSBUT9793-69-15 10:37:0059[facility]annCHEM TYQKM2425-03-14 10:37:002.9[facility] PfmqcbqZXNDEMNPEF1845-40-03 10:37:006.8 [facility] VevhkfnGSVJRLGSPE8445-97-34 10:37:004.47[facility]annHEMATOLOGY 2020-08-29 10:37:0010.6[facility] IdytqthFDCYLHJBNM1195-25-78 10:37:0034.0[facility] SihjrntUPFZBSLUZY6363-70-80 10:37:0076.1[facility] AxjxsssXPQCHMUKTR4841-00-00 10:37:00 Test Item Value Reference Range Interpretation Comments MCH (test code = MCH) 23.8 pg 27.0-31.0 [facility] MsropoeCWLOPYSEMD8584-33-86 10:37:0031.3[facility]annHEMATOLOGY 2020-08-29 10:37:0018.2[facility] JbdguogSICXBIYRJS7913-87-99 10:37:20458Itdqfjet CgqgjjqKXWPBPNGZF4672-28-03 10:37:007.5[facility] LmgszgvPIXJYJYYPL4517-15-98 10:37:00 Test Item Value Reference Range Interpretation Comments PT (test code = PT) 12.8 s 12.0-14.7 [facility] LtgifqrWIQJLKRIHZ4570-94-49 10:37:00 Test Item Value Reference Range Interpretation Comments INR (test code = INR) 0.97 1 0.85-1.17 [facility] MymkjvfZWWYAVBIQG4729-77-52 10:37:00 Test Item Value Reference Range Interpretation Comments PTT (test code = PTT) 25.0 s 22.9-35.8 [facility] IotqjslJZMBHSHCRU9524-53-14 10:37:0070.5[facility]annHEMATOLOGY 2020-08-29 10:37:0018.8[facility] SbclypiAXWICAZVOH6799-57-65 10:37:009.5[facility] NnetmuxBOHVNZKOQZ5295-01-76 10:37:000.9[facility] JwykanwDOZAAIASZM4467-27-22 10:37:000.3[facility] UrldtvmRXIDCGTYCY5764-49-91 10:37:004.8[facility] EMEFMSIPSF7305-42-64 10:37:001.3[facility] FrlitntZNHTFPRCVK6304-67-41 10:37:000.6 [facility] BvquuibRXTBYLVPZP4152-23-42 10:37:000.1[facility]annHEMATOLOGY 2020-08-29 10:37:001+ *ABN*(08/29/20 5:37 AM)[facility] XxrnmdmGYLTHYLCCW9932-25-38 10:37:00Not Detected (08/29/20 5:37 AM)[facility]annBL[facility]OD BANK RESULTS 2020-08-29 10:37:00Negative (08/29/20 5:37 AM)[facility]annCHEM WOUBA7948-82-95 10:37:02982Dzmhbfxc HermannCHEM XQGYE3078-93-78 10:37:0028[facility]annCHEM YKCGN8507-90-30 10:37:001.01[facility]annCHEM QLUAP9659-94-49 10:37:76634 [facility]annCHE[facility] DMHFW2277-94-77 10:37:003.8[facility]annCHEM PANEL 2020-08-29 10:37:23676Hmoefzll [facility]annCHEM UFKKQ5570-55-92 10:37:0028[facility]annCHEM YBSJG8807-22-97 10:37:009.8[facility]annCHEM HFWNV2837-63-59 10:37:0011.8[facility]annCHEM YFBJP6479-84-29 10:37:0059[facility]annCHEM WWAJN0683-20-31 10:37:002.9[facility] FmtiskfNUHKSVIHOC9769-16-75 10:37:006.8 [facility] IutsqeqMGXSWHIERL1012-50-03 10:37:004.47[facility]annHEMATOLOGY 2020-08-29 10:37:0010.6[facility] WrqhrphZJFMVOQALU5997-71-11 10:37:0034.0[facility] WkgndpcIOGUOZRZIL6975-46-54 10:37:0076.1[facility] GtcjgvrQXUDBPZJFA3594-32-70 10:37:00 Test Item Value Reference Range Interpretation Comments MCH (test code = MCH) 23.8 pg 27.0-31.0 [facility] TpoiyyjFQWARKWAUH5473-83-13 10:37:0031.3[facility]annHEMATOLOGY 2020-08-29 10:37:0018.2[facility] SucnxfjUPYGOZLQEG6452-22-10 10:37:45703Kjrelmru YrbbfudBJAXVAKBDG3160-20-31 10:37:007.5[facility] CqwdchgIAOTIHUTSW0432-32-68 10:37:00 Test Item Value Reference Range Interpretation Comments PT (test code = PT) 12.8 s 12.0-14.7 [facility] AlsgdegUOTRJEQVKT6808-70-37 10:37:00 Test Item Value Reference Range Interpretation Comments INR (test code = INR) 0.97 1 0.85-1.17 [facility] WukzeudGWERAPTETA7449-33-32 10:37:00 Test Item Value Reference Range Interpretation Comments PTT (test code = PTT) 25.0 s 22.9-35.8 [facility] LuvvtpuUAIPKKZOBL2716-38-38 10:37:0070.5[facility]annHEMATOLOGY 2020-08-29 10:37:0018.8[facility] PpuvmjgARSQYSILBM2392-96-41 10:37:009.5[facility] LapvconUTVPUJPQWX3136-63-31 10:37:000.9[facility] WcvkgfkSFFNLDKXWP5845-65-49 10:37:000.3[facility] HgfosqxVERSFYDOHI3643-79-84 10:37:004.8[facility] [place] HQKNCXEAFF6024-50-92 10:37:001.3[facility] WuxquuwTRDHGJRTVP2141-01-74 10:37:000.6 [facility] OoeyutvIFLPQYOHHX3117-13-83 10:37:000.1[facility]annHEMATOLOGY 2020-08-29 10:37:001+ *ABN*(08/29/20 5:37 AM)[facility] LnxrrxyZMSCTBXEOZ7553-21-04 10:37:00Not Detected (08/29/20 5:37 AM)[facility]annBLOOD BANK RESULTS 2020-08-29 10:37:00Negative (08/29/20 5:37 AM)[facility]annCHEM UNZMD2259-00-26 10:37:01077Uplcjcpr HermannCHEM NYIEI6199-28-33 10:37:0028[facility]annCHEM KHHWS6524-14-85 10:37:001.01[facility]annCHEM ZGUXP5733-86-83 10:37:10468 [facility]annCHE[facility] SHUGW8215-93-23 10:37:003.8[facility] HermannCHEM PANEL 2020-08-29 10:37:82943Lkarwrqm [facility]annCHEM KRKGF0630-98-02 10:37:0028[facility]annCHEM MGJTP4963-96-21 10:37:009.8[facility]annCHEM BDPSE5776-31-21 10:37:0011.8[facility] HermannCHEM WLEYM1377-78-01 10:37:0059[facility]annCHEM BCIQO9921-35-80 10:37:002.9[facility] BsdllvjRRWPIEFCJA8086-26-60 10:37:006.8 [facility] SrkugquQZRMSOGAZG6067-11-95 10:37:004.47[facility]annHEMATOLOGY 2020-08-29 10:37:0010.6[facility] ZnmyhelXLMZTLULTC5794-42-68 10:37:0034.0[facility] LrjdvwzYXBELISRBA7771-87-20 10:37:0076.1[facility] QufopjyFWKGMTFRHJ6566-01-10 10:37:00 Test Item Value Reference Range Interpretation Comments MCH (test code = MCH) 23.8 pg 27.0-31.0 [facility] WjfubbrKVEVDJJQJE6152-58-95 10:37:0031.3[facility]annHEMATOLOGY 2020-08-29 10:37:0018.2[facility] QrrkehgPZZZNSALDW3046-02-27 10:37:92374Epmamstt IsaincwOMNSLGHWPB7149-60-66 10:37:007.5[facility] XxluucqGSGNFCTIJY0435-10-84 10:37:00 Test Item Value Reference Range Interpretation Comments PT (test code = PT) 12.8 s 12.0-14.7 [facility] PksvajuBJJMOPQHAZ5391-00-92 10:37:00 Test Item Value Reference Range Interpretation Comments INR (test code = INR) 0.97 1 0.85-1.17 [facility] ZgjqjusQSFZGKEPMP2034-61-02 10:37:00 Test Item Value Reference Range Interpretation Comments PTT (test code = PTT) 25.0 s 22.9-35.8 [facility] TyzdnekFCMVLDBSOR5238-61-95 10:37:0070.5[facility]annHEMATOLOGY 2020-08-29 10:37:0018.8[facility] CcufdndZTZYSZDSGR4443-34-07 10:37:009.5[facility] SclkdtqQFGRBOAPGH8515-14-67 10:37:000.9[facility] FnpmmgwDOTUDFWTTI8791-63-44 10:37:000.3[facility] RretuulZUHMMXPXZQ3659-47-22 10:37:004.8[facility] [place] WQWALDMHZY8694-09-60 10:37:001.3[facility] AwbptbxWWXRDQNCTK5656-48-14 10:37:000.6 [facility] OaimizzZZRQBLGATL4322-56-47 10:37:000.1[facility]annHEMATOLOGY 2020-08-29 10:37:001+ *ABN*(08/29/20 5:37 AM)[facility] SlsskjdWCXVFUNRCO5007-60-85 10:37:00Not Detected (08/29/20 5:37 AM)[facility]annBLOOD BANK RESULTS 2020-08-29 10:37:00Negative (08/29/20 5:37 AM)[facility]annCHEM KGRBG0305-96-62 10:37:22121Loyclhnq HermannCHEM OKJUF2311-05-69 10:37:0028[facility]annCHEM AHUJT6748-16-99 10:37:001.01[facility]annCHEM DDMQE2092-31-85 10:37:49420 [facility]annCHE[facility] SPSIQ2909-54-51 10:37:003.8[facility] HermannCHEM PANEL 2020-08-29 10:37:45237Mrjcvxkt [facility]annCHEM FNWJQ5416-65-63 10:37:0028[facility]annCHEM NFSAX1862-04-91 10:37:009.8[facility]annCHEM ONQLF6967-30-19 10:37:0011.8[facility]annCHEM KBYGI5322-58-89 10:37:0059[facility]annCHEM MGLID7406-35-37 10:37:002.9[facility] HdnwtasLCDOIMEUJM7111-73-41 10:37:006.8 [facility] KovrtocKDIRHTOISK1322-09-92 10:37:004.47[facility]annHEMATOLOGY 2020-08-29 10:37:0010.6[facility] VfuzrqkBVWUZBJZKJ9926-51-35 10:37:0034.0[facility] BihnpvwMIITENBAQS6946-39-13 10:37:0076.1[facility] BaevfidXIRLKAGDEI2806-78-40 10:37:00 Test Item Value Reference Range Interpretation Comments MCH (test code = MCH) 23.8 pg 27.0-31.0 [facility] VzewbonXHUMCFSGQR4838-02-29 10:37:0031.3[facility]annHEMATOLOGY 2020-08-29 10:37:0018.2[facility] DngjfqbSLPXVQHZOV0786-61-16 10:37:19060Pxvbuccp DralcybFXTOOKGBKG9645-23-69 10:37:007.5[facility] TowkdxiMIVZMVTHYF5723-75-27 10:37:00 Test Item Value Reference Range Interpretation Comments PT (test code = PT) 12.8 s 12.0-14.7 [facility] CcwefsqEXGCETVLCR0543-22-39 10:37:00 Test Item Value Reference Range Interpretation Comments INR (test code = INR) 0.97 1 0.85-1.17 [facility] KxwitozBYQYFEOWCX3535-01-33 10:37:00 Test Item Value Reference Range Interpretation Comments PTT (test code = PTT) 25.0 s 22.9-35.8 [facility] GuvsrplJIEMZGRGKB4458-77-74 10:37:0070.5[facility]annHEMATOLOGY 2020-08-29 10:37:0018.8[facility] GzplbzaEPVUMLBNUM5718-31-71 10:37:009.5[facility] DoisvcnOLQCOHFAFX3722-35-30 10:37:000.9[facility] BrpjagrDRGNNSKCOA2183-72-06 10:37:000.3[facility] KzrzbkrCYGBXDQCUK3330-25-98 10:37:004.8[facility] XICNPCVMBI8672-60-52 10:37:001.3[facility] FmpdoidIIPLWILNEW4834-01-83 10:37:000.6 [facility] OqoameqACNYEMJSJX4404-70-72 10:37:000.1[facility]annHEMATOLOGY 2020-08-29 10:37:001+ *ABN*(08/29/20 5:37 AM)[facility] AajirhcMWISPKTXFP2638-15-13 10:37:00Not Detected (08/29/20 5:37 AM)[facility]annBLOOD BANK RESULTS 2020-08-29 10:37:00Negative (08/29/20 5:37 AM)[facility]annCHEM BKDHA6912-86-82 10:37:08016Ulxuqpbn HermannCHEM ATMHF3913-51-11 10:37:0028[facility]annCHEM WPILF4591-91-87 10:37:001.01[facility]annCHEM PBKZB0625-61-49 10:37:72678 [facility]annCHE[facility] ZZFGC0501-52-40 10:37:003.8[facility] HermannCHEM PANEL 2020-08-29 10:37:89737Ebubrvku HermannCHEM XUTFI3205-36-87 10:37:0028[facility]annCHEM HGVKB2965-95-54 10:37:009.8[facility]annCHEM IYXIU7655-61-55 10:37:0011.8[facility]annCHEM KLTJK1705-99-04 10:37:0059[facility]annCHEM AMUXG3270-95-27 10:37:002.9[facility] KgdhlrzCXDRAEHIVW3448-52-72 10:37:006.8 [facility] PjjwczdCILUNRRTZI4139-60-09 10:37:004.47[facility]annHEMATOLOGY 2020-08-29 10:37:0010.6[facility] UtshkmoHADFWIHVEO9345-85-86 10:37:0034.0[facility] ObfnnvsADTCTZEXNU2657-22-54 10:37:0076.1[facility] AudwjowEKESNKHYOU7070-92-88 10:37:00 Test Item Value Reference Range Interpretation Comments MCH (test code = MCH) 23.8 pg 27.0-31.0 [facility] CazucylCZYWICQCYY6173-67-05 10:37:0031.3[facility]annHEMATOLOGY 2020-08-29 10:37:0018.2[facility] XgitzrcMIYJWTFFRG4548-32-53 10:37:45954Tvnhrwgq YaluqlkXUBSXNUYKJ3226-69-65 10:37:007.5[facility] GovtmhzHCZIKHAYHD2813-18-60 10:37:00 Test Item Value Reference Range Interpretation Comments PT (test code = PT) 12.8 s 12.0-14.7 [facility] AdexpdjLKFNJGDNEW7044-79-73 10:37:00 Test Item Value Reference Range Interpretation Comments INR (test code = INR) 0.97 1 0.85-1.17 [facility] QllofhxMQEYSCCJAE3867-95-44 10:37:00 Test Item Value Reference Range Interpretation Comments PTT (test code = PTT) 25.0 s 22.9-35.8 [facility] OkojekvQWISNUAXBQ8614-95-85 10:37:0070.5[facility]annHEMATOLOGY 2020-08-29 10:37:0018.8[facility] ChzdoycDBGNRLUFGX6442-58-50 10:37:009.5[facility] NawnirgVZPOAQUPOK4910-04-01 10:37:000.9[facility] BsbvofyDOFXRYSQJX9227-53-59 10:37:000.3[facility] DiuqtiiPJJDVKPNQK8284-54-45 10:37:004.8[facility] [place] OEYANWIPDH5310-99-99 10:37:001.3[facility] GjqkabaAHTSLNASKU7311-40-85 10:37:000.6 [facility] YphbuwwKBYISYCONV8529-37-04 10:37:000.1[facility]annHEMATOLOGY 2020-08-29 10:37:001+ *ABN*(08/29/20 5:37 AM)[facility] AubepzbMVKMOGSKSH4390-39-76 10:37:00Not Detected (08/29/20 5:37 AM)[facility] HermannBLOOD BANK RESULTS 2020-08-29 10:37:00Negative (08/29/20 5:37 AM)[facility]annCHEM AWPPI1962-17-36 10:37:98245Czakmpdv [facility]annCHEM VYITC8267-21-34 10:37:0028[facility]annCHEM FMCON1264-13-33 10:37:001.01[facility]annCHEM QSKLY5573-81-46 10:37:63783 [facility]annCHE[facility] VFQQB4167-26-22 10:37:003.8[facility] HermannCHEM PANEL 2020-08-29 10:37:52075Qcfujtxw [facility]annCHEM WZJOG3495-70-19 10:37:0028[facility]annCHEM KPBHD7604-86-40 10:37:009.8[facility] HermannCHEM COXER5796-79-96 10:37:0011.8[facility] HermannCHEM AWEMX0639-33-28 10:37:0059[facility]annCHEM PNEOT8333-86-96 10:37:002.9[facility] XwhdzcgDKJGCNQEKZ2172-10-11 10:37:006.8 [facility] SuuazmoCLRTVMMZNQ1776-97-16 10:37:004.47[facility]annHEMATOLOGY 2020-08-29 10:37:0010.6[facility] GwhihyxPODEAMZPVS5180-08-06 10:37:0034.0[facility] LmsywacWCIEEVJFEK1874-55-08 10:37:0076.1[facility] VziwxecVPADQFOEYT5153-34-30 10:37:00 Test Item Value Reference Range Interpretation Comments MCH (test code = MCH) 23.8 pg 27.0-31.0 [facility] DknqtzsKENJJAEFON3555-34-18 10:37:0031.3[facility]annHEMATOLOGY 2020-08-29 10:37:0018.2[facility] EginocwBAQQBWHKMN2013-56-82 10:37:80494Iqjnuiqd ObokflfETIBRRYCMR5770-97-29 10:37:007.5[facility] XkgynbeRAVZIAAPLA6011-80-86 10:37:00 Test Item Value Reference Range Interpretation Comments PT (test code = PT) 12.8 s 12.0-14.7 [facility] VadihfkHRBBZCUWOL4976-42-32 10:37:00 Test Item Value Reference Range Interpretation Comments INR (test code = INR) 0.97 1 0.85-1.17 [facility] XzrxjfhBTWMDKFVVL3654-74-62 10:37:00 Test Item Value Reference Range Interpretation Comments PTT (test code = PTT) 25.0 s 22.9-35.8 [facility] YdbbyyeXICTPYAIUA3786-88-42 10:37:0070.5[facility]annHEMATOLOGY 2020-08-29 10:37:0018.8[facility] ZcodapzWOKRQMVBEH0034-52-25 10:37:009.5[facility] FqjdybiDOJKTQAQKG2297-58-53 10:37:000.9[facility] PfggisaRWAODPOXFZ5275-08-04 10:37:000.3[facility] YumcndqNMZYPLUPXC7644-87-64 10:37:004.8[facility] KTQDUBGYCM8628-12-82 10:37:001.3[facility] XpxgtgcBAVYCLXKOO7390-25-95 10:37:000.6 [facility] KvhkomwNFJZLUCYPA4006-01-86 10:37:000.1[facility]annHEMATOLOGY 2020-08-29 10:37:001+ *ABN*(08/29/20 5:37 AM)[facility] KzhtmdiLRFVLVDNJG0892-24-00 10:37:00Not Detected (08/29/20 5:37 AM)[facility] 2020[facility]08[facility]27 23:14:39PROCEDURE: NM GASTRIC EMPTYING [...] rate, with complete emptying by 4 hours. [facility]-[id number] Interface, Radiology Results Incoming - 08/27/2020 6:17 [...] rate, with complete emptying by 4 hours. [facility]-[id number] HospitalMiscellaneous referral test 2020-05-09 21:24:58 Test Item Value Reference Range Interpretation Comments Misc test HIV-1 RNA QUAL PCR name (test code = 2566) Misc test see note Human Immunodef iciency result (test Virus 1 (HIV-1) by code = 1730) Qualitative [employer]-M ediated Amplification ( TMA) [facility] test code 9634905 HIV-1 by Qualit ative TMA See Note SOURCE/SPECIMEN PLASMA HIV-1 RNA, QUAL ITATIVE TMA HIV-1 RNA, QL TMA T TACK MAKER Test Not Performed. Initial testing necessi tated a repeat, but the re was insufficient sa mple to perform repeat. SAMPLE LEFT FOR REPEAT IS 50 uL. NEED 1000 u L TO RUN REPEAT. This te st was performed using the APTIMA(R) HIV-R NA Qualitative Ass ay (Gen-Probe). ======== ======== Te st performed by:[facility] [place] [address]83 KYLE (test HIVQL - HIV-1 RNA, code = KYLE) Qualitative TMA (FROZEN)[facility] Test Code: 3435333Lflgrr: plasma [facility] upper vftvbklal8166-68-50 04:57:00 Vascular Ultrasound Laboratory Upper Extremity Venous Report [id number] [address] Pat.Name: LIO WATTS Pat.ID: [id number] .Date: 04/30/2020 Refer.MD: ELISEO ARCE MD Exam Time: 5:04:00 PM Study Type:UE Venous Age: 9 1955,65Y Sex: FEMALE Sonogrphr: IBIS Espinosa, SANKET Pat. Stat.:Inpatient Room: [place] [address] 2020 Tape Vol: JM, CPT - 4: 83828 Echo Event ID:[id number] Order ID: [id number] Reason for Study:Arm swelling or pain, DVT suspected. History ofhiatal hernia, esophageal stricture, HIV, HTN, COPD, paroxysmal Afib,ORHAN.Procedures: Colorflow, Grayscale/2D, Pulsed wave DopplerRace: C -------SUMMARY: [...] veins.*Preliminary result reported to ASHLEY Santos @ 9659 on 04/30/20.PHYSICIAN INTERPRETATION Venous examination of the both upper extremities and neck demonstratedno evidence of deep venous thrombosis. Total superficial vein thrombosis of the right basilic vein. FINDINGS: Signed 04/30/2020 10:57 PMFrancis Cabral MD, RPVIInterface, Radiology Results In - 04/30/2020 10:58 PM CST Vascular Ultrasound Laboratory Upper Extremity Venous Report [address] [place] [address] Pat.Name: LIO WATTS Pat.ID: [id number] St.Date: 04/30/2020 Refer.MD: ELISEO ARCE MD Exam Time: 5:04:00 PM Study Type:UE Venous Age: 9 1955,65Y Sex: FEMALE Sonogrphr: IBIS Espinosa, SANKET Pat. Stat.:Inpatient Room: [place] [address] 2020 Tape Vol: , CPT - 4: 01444 Echo Event ID:[id number] Order ID: [id number] Reason for Study:Arm swelling or pain, DVT [...] veins.*Preliminary result reported to ASHLEY Santos @ 1725 on 04/30/20.PHYSICIAN INTERPRETATION Venous examination of the both upper extremities and neck demonstratedno evidence of deep venous thrombosis. Total superficial vein thrombosis of the right basilic vein. FINDINGS: ------Signed 04/30/2020 10:57 PMFrancis Cabral MD, [facility] Chest 2 Dq0656-31-39 22:21:01EXAMINATION: XR CHEST 2 VW CLINICAL HISTORY: [...] cardiopulmonary process or active disease of the chest.1D2RAD_PS01[facility] Unsuccessful Icfxchn8979-10-74 17:14:34ANicole zhang RN 04/30/2020 11:25 AMMidline Unsuccessful [...] place a PIV g.20 in lower arm .[facility] Abdomen 1 Vw Qyonvfxv0804-92-88 16:20:14EXAMINATION: XR ABDOMEN 1 VW PORTABLE CLINICAL HISTORY: Abdominal pain post op COMPARISON: No prior IMPRESSION:1.Residual barium within the colon throughout. No small bowel obstruction noted. [facility]-2U [id number] Interface, Radiology Results Incoming - 04/30/2020 10:23 AM CST EXAMINATION: XR ABDOMEN 1 VW PORTABLECLINICAL HISTORY: Abdominalpain post opCOMPARISON: No priorIMPRESSION:1.Residual barium within the colon throughout. No smallbowel obstruction noted.[facility]-[id number] [facility]2020-12-07 20:57:57Carlee Malloy MD 04/28/2020 2:59 PMAirwayPerformed by: Carlee Malloy MDAuthorized by: Carlee Malloy MD Location: ORUrgency: ElectiveDifficult Airway: No Anesthesiologist: Kvng Malloy, MDResident/LIBRARY CLERK TALKING BOOKS/AA: Allan Morocho, DOPerformed by: resident/LIBRARY CLERK TALKING BOOKS/AAPreoxygenated klyy975% O2: Yes C- spine Precautions Maintained Throughout: [...] No Number of Attempts at Approach: 1 [facility] HoustonTransthoracic Echocardiogram Complete, (w Contrast, Strain and 3D if needed)2020-04-28 00:20:00 Echocardiography Report [address]Name: LIO WATTS.ID: [id number] .Date: 04/27/2020 Refer.MD: ELISEO ARCE MD Exam Time: 2:21:00 PM Study Type:Routine Echo Height: 64in Weight: 213lb BSA: 2.01 m2 Age: 9 1955,65Y Sex: FEMALE BP: 128/89 HR: 102 bpm Sonogrphr: SANKET Perkins Pat. Stat.:Inpatient Room: [facility] Study Status:Final Echo Event ID:[id number] Order ID: [id number] Reason for Study:Atrial FibrillationHistory / Clinical:Hypertension Procedures: [...] estimate PA systolic pressure. MEASUREMENTS: 2DParasternal Long [place] Ao An 2.2 cm LVPWd 1 cm [...] - 04/27/2020 6:21 PM CST Echocardiography Report [address] [place] [address] Pat.Name: LIO WATTS Pat.ID: [id number] .Date: 04/27/2020 Refer.MD: ELISEO ARCE MD Exam Time: 2:21:00 PM Study Type:Routine Echo Height: 64in Weight: 213lb BSA: 2.01 m2 Age: 9 1955,65Y Sex: FEMALE BP: 128/89 HR: 102 bpm Sonogrphr: SANKET Perkins Pat. Stat.:Inpatient Room: [facility] Study Status:Final Echo Event ID:[id number] Order ID: [id number] Reason for Study:Atrial FibrillationHistory / Clinical:Hypertension Procedures: [...] PA systolic pressure.- MEASUREMENTS: ---- 2DParasternal Long [place] Ao An 2.2 cm LVPWd 1 cm [...] LVOT CI 3.1 l/m/m2 Signed 04/27/2020 06:20 PM[facility], [facility] Esophagram Double [id number] 18:07:12EXAMINATION: [place] ESOPHAGRAM DOUBLE CONTRAST CLINICAL HISTORY: [...] herniaCOMPARISON: Limited comparison with chest [facility] from [facility]2019TECHNIQUE: Esophagram was performed with effervescent granules and barium.FLUOROSCOPIC TIME: 1.5 minutes.NUMBER OF IMAGES: 9 fluoroscopic images.IMPRESSION:No strictures. Normal esophageal mucosa.Nonspecific esophageal dysmotility, with mildly delayed esophageal emptying and scatterednonpropulsive tertiary contraction waves.There is a moderately sized type III hiatal hernia. There was mild spontaneous gastroesophageal reflux.[id number] Abdomen Wo Contrast Pelvis Wo [id number] 15:23:55EXAMINATION: CT CHEST WO CONTRAST ABDOMEN WO [...] chronic and incidental findings as detailed above. [facility]-[id number] Dictated and approved by radiology resi dent/fellow: [...] incidental findings as detailed above.[facility]-[id number] and approved by radiology physician assistant/fellow: Stefani Freeman, Medhat Flowers Jr., M.D., personally reviewed the images and resident's/fellow's findings and agree with the final report. [facility], [facility], TV,PCR, [place] [id number] 15:38:00 Test Item Value Reference Range Interpretation Comments FT (test code = CHTR) Not detected (qualifier Not Detected N value) FT (test code = Not detected (qualifier Not Detected N NGONO) value) FT (test code = TRVG) Not detected (qualifier Not Detected N value) URINALYSIS WITH [id number] 10:57:00 Test Item Value Reference Range Interpretation Comments Color (test code = UCOLR) Dk. Yellow Clarity (test code = UCLAR) Hazy Glucose (test code = UGLUC) NEGATIVE NEGATIVE N Bilirubin (test code = UBILI) NEGATIVE NEGATIVE N Ketones (test code = UKET) NEGATIVE NEGATIVE N Specific [place] (test code = 1.025 1.005-1.030 A USPGR) [...]
== END 2021-03-31 04:52 | disposition home or self-care (01) ==
LOC: ER 02:43
PROC: 2W3CX1Z Immobilization of Right Lower Arm using Splint (ICD-10-PCS; principal; 2021-03-31)
DX: S52.351A Displaced comminuted fracture of shaft of radius, right arm, initial encounter for closed fracture (principal); W01.0XXA Fall on same level from slipping, tripping and stumbling without subsequent striking against object, initial encounter; Y93.89 Activity, other specified; Y92.018 Other place in single-family (private) house as the place of occurrence of the external cause; Z88.1 Allergy status to other antibiotic agents; Z88.6 Allergy status to analgesic agent; Z88.2 Allergy status to sulfonamides; Z88.8 Allergy status to other drugs, medicaments and biological substances
CPT/HCPCS: 73130; 73110; 73562; 99284; 29125; J2175; J2405

== ENCOUNTER 2021-04-01 08:15 | Day surgery (SDC) | payer OTHER ==
[2021-04-01] MEDS ORDERED: Ringers Lactate 1,000 ML IV ONE (08:30)
[2021-04-01] MEDS ORDERED: CEFAZOLIN/NS 1gm 1 GM/50 ML BAG ONE (08:31)
[2021-04-01] MEDS ORDERED: SCOPOLAMINE HYDROBROMIDE PATCH TD ONE ×2 (09:21→09:30)
[2021-04-01] MEDS ORDERED: ALBUTEROL 2.5 MG/3 ML NEB SOL ONE (11:07)
[2021-04-01] MEDS ORDERED: MIDAZOLAM HCL 2 MG/2 ML INJ ONE (11:08)
[2021-04-01] MEDS ORDERED: LIDOCAINE 1% MPF 5 ML VIAL ONE (11:35)
[2021-04-01] MEDS ORDERED: MORPHINE 10 MG/ML VIAL ONE (11:54)
[2021-04-01] MEDS ORDERED: propofoL 200 MG/20 ML VIAL IV ONE (11:54)
[2021-04-01] MEDS ORDERED: LIDOCAINE 2% MPF 5 ML VIAL ONE (11:54)
[2021-04-01] MEDS ORDERED: ONDANSETRON 4 MG/2 ML VIAL ONE (11:55)
[2021-04-01] MEDS ORDERED: EPHEDRINE SULF 50 MG/ML VIAL ONE (12:25)
[2021-04-01] MEDS ORDERED: dexAMETHasone 10 MG/ML VIAL ONE (13:08)
--- NOTE | 2021-04-01 14:52 | RAD REPORT ---
EXAM DESCRIPTION: RAD - Wrist Right 2 View - 04/01/2021 2:42 pm CLINICAL HISTORY: ORIF RT WRIST Pain COMPARISON: <Comparisons> FINDINGS: Fluoroscopy time 1.3 minutes.
[2021-04-01 16:14] VITALS: BP 115/96; TEMP 96.9
[2021-04-01 16:18] VITALS: O2SAT 93
--- NOTE | 2021-04-02 01:55 | OP ---
Date of Procedure: 04/01/2021 Surgeon: Samson Garcia MD Preoperative Diagnosis: Comminuted intra-articular fracture of the right distal radius as well as pr ofound numbness in the median nerve distribution. Postoperative Diagnosis: Comminuted intra-articular fracture of the right distal radius as well as p rofound numbness in the median nerve distribution. Procedures: Open reduction and internal fixation of right distal radius with open carpal tunnel rele ase. Estimated Blood Loss: Less than 10 cc. Complications: No complications. Pathology Specimen: No pathology specimens sent. Indications For Operation: Ms. Fleming is a patient who saw me in the office yesterday. She arrived in a sugar-[facility] splint. She denied any open injury, but she complained of numbness of the first thre e digits in the median nerve distribution. Also, complains of significant pain related to her wrist. X-rays demonstrated a displaced complex intra-articular fracture of the distal radius. Risks, bene fits, and alternatives of different methods of treating have been discussed. We brought her to the o perating room as soon as we could for carpal tunnel release and open reduction and internal fixation of the radius. All of her questions have otherwise been invited and answered. Description Of Procedure: The patient was taken to the operating room and placed in supine position general anesthesia was obtained by anesthesia staff. Following this, the splint was taken off. She does have areas of skin tears on her wrist; however, none of which were directly overlying the fractu re and did not appear to be consistent with the open fracture at all. After this, the right upper ex tremity was then prepped and draped in usual sterile fashion; however, no adhesive prep was done aliya use of the skin tears. Following this, attention was first turned to the distal radius. A standard volar approach of incision was then taken down carefully through the skin and soft tissues. Meticulo us hemostasis being maintained using bipolar electrocautery. This leads to the tendon of the flexor carpi radialis, which was retracted radialward. Following this, the underlying sheath was then explo ited and the flexor pollicis longus was retracted ulnarward to protect the median nerve. This leads down to the fracture site, which was found to be highly displaced and comminuted. The combination of manual reduction techniques as well as a Arnegard elevator and a clamp were then used to reapproximate this in the near anatomic position with the exception of the volar tilt. After this, downward pressu re was used to address the volar tilt judging by the lateral x-rays. The Acumed 2 plate was then reid mauricio somewhat more distally because of the comminution in standard fashion. It did appear that we got good fixation of all the fracture fragments. After this, the wound was gently irrigated. Attention was then turned to the carpal tunnel. A standard incision which was slightly extensile was taken do wn, paralleling the thenar crease with ulnar deviation at the wrist crease. These two incisions do n ot meet. After this, meticulous hemostasis was maintained with bipolar electrocautery. The palmar f ascia was divided longitudinally. After this, any obstructions of the transverse carpal ligament wer e then gently swept to slide. A small armin was made in the transverse carpal ligament, which allowed for visualization of the median nerve. The median layer was visualized and it was then released in a proximal to distal direction. There were no constricting bands. It was then released in a distal to proximal direction until there were no constricting bands. Following this, it was gently irrigate d. The wounds were then closed. There was some Steri-Strips placed on the skin tears and [employer] w ere placed over these, was followed by placement of a well-padded sterile dressing as well as a sugar -tong splint. The patient was then awakened and taken to recovery room. There were no complications . /KIRTI Voice ID: [id number] Report ID: [id number]
== END 2021-04-01 16:10 | disposition home or self-care (01) ==
LOC: OR 08:15
PROVIDERS: ATTEND Orthopaedic Surgery
PROC: 0PSH04Z Reposition Right Radius with Internal Fixation Device, Open Approach (ICD-10-PCS; principal; 2021-04-01 12:00)
PROC: 01N50ZZ Release Median Nerve, Open Approach (ICD-10-PCS; 2021-04-01 12:00)
DX: S52.571A Other intraarticular fracture of lower end of right radius, initial encounter for closed fracture (principal)
CPT/HCPCS: J0690; J1100; J2250; J2405; J2704; J7120

== ENCOUNTER 2021-04-03 04:20 | Inpatient (IN) | payer OTHER ==
[2021-04-03] MEDS ORDERED: NA CHLORIDE 0.9% 1,000 ML ONE (05:07)
[2021-04-03] MEDS ORDERED: HYDROMORPHONE HCL 0.5 MG/0.5 ML INJ ONE ×2 (05:07→05:47)
[2021-04-03] MEDS ORDERED: NA CHLORIDE 0.9% 500 ML ONE (05:07)
[2021-04-03] MEDS ORDERED: ONDANSETRON 4 MG/2 ML VIAL ONE (05:07)
[2021-04-03 05:14] LABS: Basophils % 0.2 % (0-1.3); Hematocrit 26.6 % (36.0-45.0); Lymphocytes % 13.2 % (15.3-44.8); RBC Red Blood Cell Count 3.77 M/uL (3.86-4.86)
[2021-04-03 05:29] LABS: Protime INR 1.09
[2021-04-03 05:35] LABS: ALT/SGPT 35 U/L (12-78); AST/SGOT 28 U/L (15-37); Albumin 2.7 g/dL (3.4-5.0); Alkaline Phosphatase 55 U/L (45-117); BUN Blood Urea Nitrogen 21 mg/dL (7-18); Bicarbonate 32 mmol/L (21-32); Bilirubin Direct 0.2 mg/dL (0-0.2); Bilirubin Total 0.6 mg/dL (0.2-1.0); Glucose Level 129 mg/dL (74-106); Potassium 3.9 mmol/L (3.5-5.1); Protein, Total 6.5 g/dL (6.4-8.2); Sodium Level 144 mmol/L (136-145)
[2021-04-03 05:36] LABS: Magnesium 2.5 mg/dL (1.8-2.4); NT PRO-BNP 5238 pg/mL (<125); Troponin (Emerg Dept Use Only) < 0.02 ng/mL (0.0-0.045)
[2021-04-03 06:37] LABS: Anisocytosis 1+; Blood Morphology Comment NOTED (NOT SEEN); Hypochromasia 1+; Platelet Estimate ADEQ; White Blood Cell Scan OK (OK)
--- NOTE | 2021-04-03 06:50 | EDPHYS ---
Physician Documentation [facility] Name: Marjan Fleming Age: 66 yrs Sex: Female : 1955 Arrival Date: 04/03/2021 Time: 04:26 Bed 15 Private MD: SHEELA Physician Justus Kolb HPI: 04/03 04:54 This 66 yrs old Female presents to ER via EMS with complaints of fall and thomas pain all over , particularly left wrist and knee. 04:54 The patient presents with a contusion, decreased range of motion, an injury, pain, thomas swelling, tenderness. The complaints affect the right arm, left arm and left leg. Context: The problem was sustained at home, resulted from the patient falling, while walking, a mis-step. Onset: The symptoms/episode began/occurred just prior to arrival. Modifying factors: The symptoms are alleviated by nothing. Associated signs and symptoms: Pertinent positives: swelling, weakness, of the left arm and left leg. weak, fall several days ago , fracture of right wrist, rebecca repaired. Treatment prior to arrival includes: no previous treatment, kristin wrap, elevation of the extremity, icing the affected extremity. The patient or guardian reports decreased range of motion, pain, swelling, tenderness. The complaints affect the left wrist diffusely. Context: The problem was sustained at home. Modifying factors: The symptoms are alleviated by splinting. Associated signs and symptoms: Pertinent positives:. Severity of symptoms: At their worst the symptoms were moderate in the emergency department the symptoms are unchanged. Compartment Syndrome negative for numbness, tingling. The patient has experienced similar episodes in the past, several times. Historical: - Allergies: 04:30 Bactrim DS; dc2 04:30 butorphanol tartrate; dc2 04:30 Fentanyl; dc2 04:30 Reglan; dc2 04:30 sulfamethoxazole (bulk); dc2 04:30 Stadol; dc2 04:30 TRIMETHOPRIM; dc2 - PMHx: 05:00 Anxiety; Atrial Fib; Bipolar disorder; Chronic pain; COPD; esophageal varices; dc2 Hepatitis; HIV; Hypertension; Migraines; Panic Attacks; - Immunization history:: Adult Immunizations up to date, Client reports receiving the 2nd dose of the Covid vaccine, Last tetanus immunization: up to date. - Social history:: Smoking status: Patient/guardian denies using tobacco, the patient reports quitting approximately 10 years ago. - Family history:: not pertinent. ROS: 04:54 Constitutional: Negative for fever, chills, and weight loss, Eyes: Negative for injury, thomas pain, redness, and discharge, ENT: Negative for injury, pain, and discharge, Neck: Negative for injury, pain, and swelling, Cardiovascular: Negative for chest pain, palpitations, and edema, Respiratory: Negative for shortness of breath, cough, wheezing, and pleuritic chest pain, Abdomen/GI: Negative for abdominal pain, nausea, vomiting, diarrhea, and constipation, Back: Negative for injury and pain, : Negative for injury, bleeding, discharge, and swelling, Skin: Negative for injury, rash, and discoloration, Psych: Negative for depression, anxiety, suicide ideation, homicidal ideation, and hallucinations, Allergy/Immunology: Negative for hives, rash, and allergies, Endocrine: Negative for neck swelling, polydipsia, polyuria, polyphagia, and marked weight changes, Hematologic/Lymphatic: Negative for swollen nodes, abnormal bleeding, and unusual bruising. 04:54 MS/extremity: Positive for decreased range of motion, pain, of the right arm, left arm and left leg. 04:54 Neuro: Positive for weakness. Exam: 04:54 Constitutional: This is a well developed, well nourished patient who is awake, alert, thomas and in no acute distress. Head/Face: Normocephalic, atraumatic. Eyes: Pupils equal round and reactive to light, extra-ocular motions intact. Lids and lashes normal. Conjunctiva and sclera are non-icteric and not injected. Cornea within normal limits. Periorbital areas with no swelling, redness, or edema. ENT: Nares patent. No nasal discharge, no septal abnormalities noted. Tympanic membranes are normal and external auditory canals are clear. Oropharynx with no redness, swelling, or masses, exudates, or evidence of obstruction, uvula midline. Mucous membranes moist. Neck: Trachea midline, no thyromegaly or masses palpated, and no cervical lymphadenopathy. Supple, full range of motion without nuchal rigidity, or vertebral point tenderness. No Meningismus. Chest/axilla: Normal chest wall appearance and motion. Nontender with no deformity. No lesions are appreciated. Cardiovascular: Regular rate and rhythm with a normal S1 and S2. No gallops, murmurs, or rubs. Normal PMI, no JVD. No pulse deficits. Respiratory: Lungs have equal breath sounds bilaterally, clear to auscultation and percussion. No rales, rhonchi or wheezes noted. No increased work of breathing, no retractions or nasal flaring. Abdomen/GI: Soft, non-tender, with normal bowel sounds. No distension or tympany. No guarding or rebound. No evidence of tenderness throughout. Back: No spinal tenderness. No costovertebral tenderness. Full range of motion. Skin: Warm, dry with normal turgor. Normal color with no rashes, no lesions, and no evidence of cellulitis. Psych: Awake, alert, with orientation to person, place and time. Behavior, mood, and affect are within normal limits. 04:54 Musculoskeletal/extremity: Circulation is intact in all extremities. Sensation intact. Compartment Syndrome exam of affected extremity: is normal. Joints: All joints are normal except the left wrist and left knee displays effusion, limited range of motion, pain at rest, painful range of motion, swelling, tenderness, DVT Exam: negative Homans' sign noted on exam, no appreciated bluish discoloration, no increased warmth, pain, swelling, tenderness, erythema. 05:10 ECG was reviewed by the Attending Physician. [facility] Vital Signs: 04:30 BP 150 / 84; Pulse 71; Resp 20; Pulse Ox 99% ; Weight 102.06 kg; Height 5 ft. 4 in. dc2 (162.56 cm); Pain 10/10; 04:30 BP 150 / 84; Pulse 71; Resp 20; Pulse Ox 99% ; Pain 10/10; dc2 06:00 BP 144 / 96; Pulse 84; Resp 18; Pulse Ox 100% ; Pain 0/10; dc2 07:39 BP 151 / 78; Pulse 73; Resp 17; Pulse Ox 100% on 2 lpm NC; jt3 10:51 BP 126 / 81; Pulse 75; Resp 17; Pulse Ox 100% on 3 lpm NC; jt3 04:30 Body Mass Index 38.62 (102.06 kg, 162.56 cm) dc2 MDM: 04:33 Patient medically screened. [facility] 05:02 Differential diagnosis: dislocation, closed fracture, contusion, abrasion, tendonitis. [facility] Data reviewed: vital signs, nurses notes, lab test result(s), EKG, radiologic studies, CT scan, plain films. Data interpreted: case monitor: rate is 71 beats/min, rhythm is regular, Pulse oximetry: on room air is 99 %. Test interpretation: by ED physician or midlevel provider: ECG, plain radiologic studies. Counseling: I had a detailed discussion with the patient and/or guardian regarding: the historical points, exam findings, and any diagnostic results supporting the discharge/admit diagnosis, lab results, radiology results. 04/03 04:50 Order name: Basic Metabolic Panel [facility] 04/03 04:50 Order name: CBC with Diff; Complete Time: 06:38 [facility] 04/03 04:50 Order name: LFT's; Complete Time: 06:38 [facility] 04/03 04:50 Order name: Magnesium; Complete Time: 06:38 [facility] 04/03 04:50 Order name: NT PRO-BNP; Complete Time: 06:38 [facility] 04/03 04:50 Order name: PT-INR; Complete Time: 06:38 [facility] 04/03 04:50 Order name: Troponin (emerg Dept Use Only); Complete Time: 06:38 [facility] 04/03 04:50 Order name: XRAY Chest (1 view) [facility] 04/03 04:50 Order name: SARS-COV-2 RT PCR (Document "Date of Onset" if Symptomatic); Complete Time: [facility] 06:38 04/03 04:50 Order name: Wrist Left (3 View) XRAY [facility] 04/03 04:50 Order name: Urine Culture [facility] 04/03 04:51 Order name: Basic Metabolic Panel; Complete Time: 05:38 [facility] 04/03 05:18 Order name: CBC Smear Scan; Complete Time: 06:38 [facility] 04/03 06:40 Order name: Type And Screen [facility] 04/03 04:50 Order name: EKG; Complete Time: 04:51 [facility] 04/03 04:50 Order name: Cardiac monitoring; Complete Time: 05:04 [facility] 04/03 04:50 Order name: EKG - Nurse/Tech; Complete Time: 05:02 [facility] 04/03 04:50 Order name: IV Saline Lock; Complete Time: 05:03 [facility] 04/03 04:50 Order name: Knee Left 3 View XRAY [facility] 04/03 04:50 Order name: CT Traumagram (Head C Spine CAP wo con); Complete Time: 07:55 [facility] 04/03 09:08 Order name: Wrist Right 3 View [facility] 04/03 09:19 Order name: CONS Physician Consult [facility] 04/03 10:48 Order name: Diet Heart Healthy: please bring to 201; Complete Time: 10:49 ss 04/03 04:50 Order name: Labs collected and sent; Complete Time: 05:03 [facility] 04/03 04:50 Order name: O2 Per Protocol; Complete Time: 05:03 [facility] 04/03 04:50 Order name: O2 Sat Monitoring; Complete Time: 05:03 [facility] 04/03 04:50 Order name: Urine Dipstick-Ancillary (obtain specimen); Complete Time: 06:26 [facility] EC:10 Rate is 71 beats/min. Rhythm is regular. QRS [place] is Normal. [place] interval is normal. QRS thomas interval is normal. QT interval is normal. No Q waves. T waves are Normal. No ST changes noted. Clinical impression: NSR w/ Non-specific ST/T Changes and No evidence of ischemia. Interpreted by me. Reviewed by me. Administered Medications: 05:00 Drug: NS 0.9% 500 ml Route: IV; Rate: bolus; Infused Over: 1 hrs; Site: left forearm; dc2 Delivery: Primary tubing; 06:00 Follow up: IV Status: Completed infusion; IV Intake: 500ml dc2 05:05 Drug: Dilaudid (HYDROmorphone) 0.5 mg Route: IVP; Site: left forearm; dc2 05:50 Follow up: Response: Pain is unchanged, physician notified dc2 05:10 Drug: Zofran (Ondansetron) 4 mg Route: IVP; Site: left forearm; dc2 05:50 Follow up: Response: Nausea is decreased dc2 05:51 Drug: Dilaudid (HYDROmorphone) 0.5 mg Route: IVP; Site: left forearm; dc2 06:25 Follow up: Response: Pain is decreased dc2 06:26 Drug: NS 0.9% 1000 ml Route: IV; Rate: 125 ml/hr; Site: left forearm; dc2 Disposition Summary: 04/03/21 06:49 Hospitalization Ordered Hospitalization Status: Inpatient Admission thomas Provider: Goldy Baker cha Location: Telemetry/MedSurg (Inpatient) thomas Condition: Fair thomas Problem: new thomas Symptoms: have improved thomas Bed/Room Type: Standard thomas Room Assignment: 201(04/03/21 10:33) Diagnosis - Repeated falls thomas - Pain in left knee - effusion,eccymosis, non ambulatory thomas - Anemia in chronic kidney disease thomas - Weakness - intractable pain thomas - Obesity, unspecified thomas Forms: - Medication Reconciliation Form thomas - SBAR form thomas Signatures: Dispatcher [employer] EDRosemary Turner, MENTAL HYGIENIST-C MENTAL HYGIENIST-Ckb Justus Kolb MD MD cha Smirch, Shelby, RN RN Jimi Tomlinson FNP-C JOSE M-Cla1 Jo Ann Huynh Azul Andre RN RN dc2 Corrections: (The following items were deleted from the chart) 10: 06:49 [facility] 10:33 10:[address] [place] [address]
--- NOTE | 2021-04-03 06:50 | ER ---
Nurse's Notes [facility] Name: Marjan Fleming Age: 66 yrs Sex: Female : 1955 Arrival Date: 04/03/2021 Time: 04:26 Bed 15 Private MD: Diagnosis: Repeated falls;Pain in left knee-effusion,eccymosis, non ambulatory;Anemia in chronic kidney disease;Weakness-intractable pain;Obesity, unspecified Presentation: 04/03 04:30 Chief complaint: Patient states: I FELL AGAIN. Coronavirus screen: Vaccine status: dc2 Patient reports receiving the 2nd dose of the covid vaccine. Client denies travel out of the [place] in the last 14 days. 04:30 Method Of Arrival: EMS: [facility] dc2 04:30 Ebola Screen: Patient negative for fever greater than or equal to 101.5 degrees dc2 Fahrenheit, and additional compatible Ebola Virus Disease symptoms Patient denies exposure to infectious person. Patient denies travel to an Ebola-affected area in the 21 days before illness onset. No symptoms or risks identified at this time. Initial Sepsis Screen: Does the patient meet any 2 criteria? No. Patient's initial sepsis screen is negative. Does the patient have a suspected source of infection? No. Patient's initial sepsis screen is negative. Risk Assessment: Do you want to hurt yourself or someone else? Patient reports no desire to harm self or others. Onset of symptoms was April 03, 2021 at 04:30. Care prior to arrival: None. 04:30 Acuity: BLAYNE 3 dc2 Triage Assessment: 04:30 General: Appears in no apparent distress. uncomfortable, Behavior is calm, cooperative. dc2 Pain: Complains of pain in EVERYWHERE. 04:30 Neuro: No deficits noted. Level of Consciousness is awake, alert, obeys commands, dc2 Oriented to person, place, time, situation. Cardiovascular: Heart tones present Capillary refill < 3 seconds in bilateral fingers toes LEFT leg swollen, reddened , purple and hot to touch . States it got like that yesterday before surgery. Pt co pain to entire leg.. Respiratory: Airway is patent Respiratory effort is even, unlabored, Respiratory pattern is regular, Breath sounds with wheezes bilaterally. GI: No deficits noted. Abdomen is non-distended, obese, Bowel sounds present X 4 quads. Patient currently denies abdominal pain, nausea, vomiting. : No signs and/or symptoms were reported regarding the genitourinary system. Derm: Skin is fragile, is thin, with poor turgor has skin tears on right forearm, left elbow healing. multiple bruising throughout body , worse on upper extremities. Musculoskeletal: Capillary refill < 3 seconds, in right upper arm. RUE is in cast with some bleeding noted to top of right hand . Pt had surgery on . . Injury Description: Pt states she fell going to the bathroom, reports not using her cane or walker. Historical: - Allergies: 04:30 Bactrim DS; dc2 04:30 butorphanol tartrate; dc2 04:30 Fentanyl; dc2 04:30 Reglan; dc2 04:30 sulfamethoxazole (bulk); dc2 04:30 Stadol; dc2 04:30 TRIMETHOPRIM; dc2 - PMHx: 05:00 Anxiety; Atrial Fib; Bipolar disorder; Chronic pain; COPD; esophageal varices; dc2 Hepatitis; HIV; Hypertension; Migraines; Panic Attacks; - Immunization history:: Adult Immunizations up to date, Client reports receiving the 2nd dose of the Covid vaccine, Last tetanus immunization: up to date. - Social history:: Smoking status: Patient/guardian denies using tobacco, the patient reports quitting approximately 10 years ago. - Family history:: not pertinent. Screenin:30 Abuse screen: Denies threats or abuse. Denies injuries from another. Nutritional dc2 screening: No deficits noted. Tuberculosis screening: No symptoms or risk factors identified. Never had TB. Fall Risk Fall in past 12 months (25 points). Secondary diagnosis (15 points) No IV (0 pts). Ambulatory Aid- Crutches/Cane/Walker (15 pts). Gait- Weak (10 pts.). Mental Status- Oriented to own ability (0 pts). Total Hauser Fall Scale indicates High Risk Score (45 or more points). Assessment: 04:30 Reassessment: See Triage assessment. dc2 06:14 Reassessment: Pt resting with eyes closed , resp even and unlabored. Appears to be dc2 comfortable at this time. Continue to monitor. 07:40 Reassessment: Pt. is currently sleeping while RN of this note is coming on shift. Pt. jt3 is on telemetry and O2 monitoring. VSS at this time. No needs for this patient at this time. 08:41 Reassessment: Pt. is now waking up. Pt. wanted to have a bowel movement and bed gunderson was jt3 placed. Pt. unable to go at this time. On assessment, pt still has right cast on arm. Sensation intact and able to move fingers. Patient's left leg is bruised. Several bruises noted on patient's bilateral arms and legs, and breasts. Pt. endorses left wrist pain. ER [employer] Supervisor notified Dr. Baker of patient's request for pain medication. Pt. does have some skin breakdown on bilateral arms. Pt. appears to be drowsy and keeps falling asleep, however, was given pain medication before RN coming onto shift. Vital Signs: 04:30 BP 150 / 84; Pulse 71; Resp 20; Pulse Ox 99% ; Weight 102.06 kg; Height 5 ft. 4 in. dc2 (162.56 cm); Pain 10/10; 04:30 BP 150 / 84; Pulse 71; Resp 20; Pulse Ox 99% ; Pain 10/10; dc2 06:00 BP 144 / 96; Pulse 84; Resp 18; Pulse Ox 100% ; Pain 0/10; dc2 07:39 BP 151 / 78; Pulse 73; Resp 17; Pulse Ox 100% on 2 lpm NC; jt3 10:51 BP 126 / 81; Pulse 75; Resp 17; Pulse Ox 100% on 3 lpm NC; jt3 04:30 Body Mass Index 38.62 (102.06 kg, 162.56 cm) dc2 ED Course: 04:26 Patient arrived in ED. tt3 04:33 Justus oKlb MD is Attending Physician. thomas 04:33 Azul Andre, ASHLEY is Primary Nurse. dc2 04:40 Triage completed. dc2 04:45 Patient has correct armband on for positive identification. Allergy band placed. Fall dc2 risk band placed. Placed in gown. Bed in low position. Call light in reach. Side rails up X2. youth nutritional monitor on. Pulse ox on. NIBP on. 05:00 Initial lab(s) drawn. Inserted saline lock: 22 gauge in left forearm, using aseptic em technique. Blood collected. 05:02 Basic Metabolic Panel Sent. dc2 05:03 Basic Metabolic Panel Sent. dc2 05:03 CBC with Diff Sent. dc2 05:03 LFT's Sent. dc2 05:03 Magnesium Sent. dc2 05:04 NT PRO-BNP Sent. dc2 05:04 PT-INR Sent. dc2 05:04 Troponin (emerg Dept Use Only) Sent. dc2 05:16 SARS-COV-2 RT PCR (Document "Date of Onset" if Symptomatic) Sent. dc2 05:[address] via stretcher. dc2 05:17 No provider procedures requiring assistance completed. dc2 05:17 Arm band placed on left wrist. dc2 05:18 IV with fluids infusing freely. dc2 05:18 Patient admitted, IV remains in place. dc2 05:45 Patient moved back from CT. dc2 05:50 X-ray(s) taken. dc2 06:07 XRAY Chest (1 view) In Process Unspecified. EDMS 06:07 Wrist Left (3 View) XRAY In Process Unspecified. EDMS 06:07 Knee Left 3 View XRAY In Process Unspecified. EDMS 06:16 CT Traumagram (Head C Spine CAP wo con) In Process Unspecified. EDMS 06:24 ED physician to see patient. dc2 06:26 Urine Culture Sent. dc2 06:43 Goldy Baker MD is Hospitalizing Provider. [facility] 07:08 Report given to ASHLEY Sidhu. dc2 Administered Medications: 05:00 Drug: NS 0.9% 500 ml Route: IV; Rate: bolus; Infused Over: 1 hrs; Site: left forearm; dc2 Delivery: Primary tubing; 06:00 Follow up: IV Status: Completed infusion; IV Intake: 500ml dc2 05:05 Drug: Dilaudid (HYDROmorphone) 0.5 mg Route: IVP; Site: left forearm; dc2 05:50 Follow up: Response: Pain is unchanged, physician notified dc2 05:10 Drug: Zofran (Ondansetron) 4 mg Route: IVP; Site: left forearm; dc2 05:50 Follow up: Response: Nausea is decreased dc2 05:51 Drug: Dilaudid (HYDROmorphone) 0.5 mg Route: IVP; Site: left forearm; dc2 06:25 Follow up: Response: Pain is decreased dc2 06:26 Drug: NS 0.9% 1000 ml Route: IV; Rate: 125 ml/hr; Site: left forearm; dc2 Intake: 06:00 IV: 500ml; Total: 500ml. dc2 Outcome: 06:49 Decision to Hospitalize by Provider. thomas 11:19 Admitted to Med/surg accompanied by tech. mims 11:19 Condition: stable 11:19 Instructed on the need for admit, RN to RN report given to ASHLEY Ko. 11:19 Patient left the ED. jt3 Signatures: Dispatcher [employer] Justus Long MD MD cha Munoz, Edgar, RN RN David Tay tt3 Azul Andre RN RN dc2 Nahum Gonzalez RN RN jt3
--- NOTE | 2021-04-03 07:49 | RAD REPORT ---
EXAM DESCRIPTION: CT - Head C Spine Cap Wo Con - 04/03/2021 6:16 am CLINICAL HISTORY: Pain;Swelling, trauma, head, neck, chest and abdomen pain COMPARISON: CT trauma March 05 TECHNIQUE: Axial [address] head images were obtained. Axial [address] cervical spine images were obtain ed with sagittal and coronal reconstruction images reviewed. Axial 5 mm images of the chest, abdomen and pelvis were obtained. All CT scans are performed using dose optimization technique as appropriate and may include automated exposure control or mA/KV adjustment according to patient size. FINDINGS: No intracranial hemorrhage, mass or edema. No midline shift or abnormal fluid collection. Mastoid air cells and paranasal sinuses are clear. No skull fracture. No significant atrophy changes are present. Ventricles are normal. Arterial tree calcifications are present. Patient has prominent for age chronic ischemic attenuation changes in the cerebral white matter. All go Cervical bodies are normal in height.Minimal anterior subluxation of C5 on C6 is present similar to t he comparison study. Lower cervical detail is limited due to shoulder artifact. C5-6 and C6-7 disc sp kristin narrowing present.No fracture or acute bone finding.Prominent facet joint hypertrophic degenerati ve changes are present. These changes cause foraminal stenosis on the right at C3-4, on the left C4-5 and bilateral C5-6. Significant right foraminal stenosis at C6-7.No prevertebral soft tissue thicken ing or paraspinal mass.Central canal detail is inherently limited on CT imaging. CT chest shows no pneumothorax, pulmonary contusion or pleural fluid collection. Atelectasis changes are present. There is a 14 millimeter area of irregular nodularity in the posterior lower left lobe ( image 36/135). This is probably scarring or atelectasis change. Acute infiltrate is unlikely but poss ible. Malignant process is not suspected. This finding was not present on the short interval March 05 study. No mediastinal hematoma and the aorta and pulmonary arteries are unremarkable. No chest chayo l mass or abnormal axillary finding. No displaced rib fracture or other significant bony finding. CT abdomen and pelvis show no injury to solid abdominal viscera. Gallbladder is absent. No biliary tr ee dilatation. Multiple rounded low-density masses in the kidneys almost certainly incidental cysts. These are not clearly different from the short interval study. No bowel injury or significant finding . No free air, free fluid or abnormal stranding. No hernia, mass or bulky lymphadenopathy. Urinary b ladder is fully contracted around a Gray catheter. Uterus and atrophic ovaries show no suspicious fi ndings. Thoracic spine degenerative changes are present. No compression fracture or acute spinal finding. No pelvic fracture identified. Final report was delayed due to technical factors affecting image transmission and reporting. IMPRESSION: No hemorrhage, edema or acute intracranial finding. Patient has prominent for age chroni c ischemic changes in the cerebral white matter. No clear change from prior imaging. Cervical spine degenerative changes match prior study. No acute cervical spine finding. No acute traumatic chest finding identifiable. Small nodular focus posterior left lower lobe is proba shaun atelectasis. Infiltrate is possible but lesser in likelihood. Malignant mass is not suspected as this was not present on the 03/[address] Abdomen and Pelvis finding.
--- NOTE | 2021-04-03 08:14 | RAD REPORT ---
EXAM DESCRIPTION: RAD - Chest Single View - 04/03/2021 6:06 am CLINICAL HISTORY: COUGH COMPARISON: March 29 portable study TECHNIQUE: AP portable chest image was obtained 04/03/2021 6:06 am . FINDINGS: Inspiratory effort is very low and film technique significantly limits evaluation. No mass, consolidation or pulmonary contusion finding suspected. Cardiomediastinal silhouette matches comparison. No measurable pleural effusion and no pneumothorax. No acute bony abnormality seen. No a cute aortic findings suspected. IMPRESSION: Significantly limited examination without acute cardiopulmonary finding.
--- NOTE | 2021-04-03 08:17 | RAD REPORT ---
EXAM DESCRIPTION: RAD - Wrist Left 3 View - 04/03/2021 6:06 am CLINICAL HISTORY: PAIN COMPARISON: <Comparisons>July 2017 rest imaging FINDINGS: No acute fracture is identified. There is no dislocation or periosteal reaction seen. Remn ants of an old ulna styloid fracture are seen. There is remodeling of the distal radius metaphyseal r egion consistent with old fracture repair. Scapholunate widening is present matching the prior study. Patient has advanced for age degenerative change along the radiocarpal joint space with degenerative remodeling of the scaphoid bone. No foreign body or other soft tissue abnormality. IMPRESSION: Degenerative change and remote posttraumatic remodeling changes of the wrist joint. No fracture or acute finding identifiable.
--- NOTE | 2021-04-03 08:18 | RAD REPORT ---
EXAM DESCRIPTION: RAD - Knee Left 3 View - 04/03/2021 6:06 am CLINICAL HISTORY: PAIN COMPARISON: <Comparisons>short interval March 31 study FINDINGS: No fracture, dislocation or periosteal reaction.No joint effusion seen. No joint space shady rowing. Prominent soft tissues anterior to the patella and patella tendon have diminished but not ful ly resolved since March 31. IMPRESSION: No acute bone or joint finding. Soft tissue swelling anterior to the patella and patella tendon have improved slightly from March 31. Clinical concerns for internal derangement or occult bony injury could be further assessed with MR im aging.
--- NOTE | 2021-04-03 09:24 | P.HP ---
Certification for Inpatient Patient admitted to: Observation With expected LOS: <2 Midnights Practitioner: I am a practitioner with admitting privileges, knowledge of patient current condition, hospital course, and medical plan of care. Services: Services provided to patient in accordance with Admission requirements found in Title 42 Section 412.3 of the Code of Federal Regulations Patient History Date of Service: 04/03/21 Reason for admission: Fall, Knee pain History of Present Illness: 66yo F, PMH: COPD on O2, CAD, HTN, chronic Afib on eliquis, recent R wrist fracture s/p repair. Presents to ED after fall at home overnight. Patient states she tripped over her oxygen tubing, causing her to fall to the floor. Patient received multiple pain medications in the ED and appears very sleepy, states she is having some hard time remembering all the details. She believes she fell on her left knee and tried to brace herself with her hands. She reports pain in bilateral wri sts/hands, and left knee. When asked where her pain is, she states all over, unable to state if any particular area hurts more than the rest. She is asks for pain medication in between nodding off between sentences. CT trauma gram, multiple x-rays are all negative in the ED. Patient states she was unable to pick herself up from the floor and needed EMS assistance. She is concerned she cannot go home since she was unable to walk and the pain is so severe. ER nursing staff stated patient keeps asking for pain medication despite her resting comfortably/falling asleep. Allergies fentanyl Allergy (Severe, Verified 03/31/21 11:11) Hives butorphanol tartrate [From Stadol] Allergy (Verified 03/31/21 11:11) confusion metoclopramide HCl [From Reglan] Allergy (Verified 03/31/21 11:11) Shortness of breath sulfamethoxazole [From Bactrim] Allergy (Verified 03/31/21 11:11) Hives/Rash trimethoprim [From Bactrim] Allergy (Verified 03/31/21 11:11) Hives/Rash Bactrim DS Allergy (Intermediate, Uncoded 03/31/21 11:11) Nausea/Vomiting Home Medications: Raltegravir Potassium [Isentress] 400 mg PO BID 02/28/12 Sertraline [Zoloft*] 2 tab PO DAILY 09/15/12 Metoprolol Tartrate 100 mg PO BID #60 tablet 02/03/20 Apixaban [Eliquis] 1 tab PO BID 07/30/20 Bupropion HCl [Wellbutrin Xl] 1 tab PO DAILY 07/30/20 Lisinopril [Zestril] 1 tab PO BID 07/30/20 Emtricitabine/Tenofov Alafenam [Descovy 200-25 mg Tablet] 1 tab PO DAILY 03/05/21 Hydralazine HCl 50 mg PO TID 03/05/21 Albuterol Neb [Proventil 0.083% Neb Soln] 3 ml NEB TID PRN #90 amp 03/30/21 Amlodipine Besylate 1 tab PO DAILY 03/30/21 Aspirin 1 tab PO DAILY 03/30/21 Buspirone HCl 30 mg PO BID 03/30/21 Dexlansoprazole [Dexilant] 60 mg PO DAILY 03/30/21 Docusate/Senna [Senokot-S*] 1 tab PO DAILY 03/30/21 Nystatin 5 ml PO TID #1 bottle 03/30/21 predniSONE [Prednisone*] 20 mg PO SEECOM #21 tab 03/30/21 Albuterol Inhaler [Ventolin Inhaler] 2 puff IH BID 03/31/21 Breezetiz 2 puff IH BID 03/31/21 LORazepam [Lorazepam] 2 mg PO BID 03/31/21 - Past Medical/Surgical History Diabetic: No -: HIV diag ~ [address] Yohan Cardenas in [place] -: CAD -: Bipolar disorder Dr Krause in [place] -: Hypertension -: COPD -: Tobacco abuse -: former Alcohol abuse -: Anemia likely of chronic disease -: Hyperlipidemia -: GERD with hiatal hernia -: Atrial fibrillation on chronic anticoagulation therapy -: Appendectomy -: Cholecystectomy -: left and right shoulder rotator cuff repair -: Right foot repair -: Right shoulder replacement -: left shoulder rotated cuff -: hiatal hernia repair february 2021 Psychosocial/ Personal History: She lives at home. She is not . - Family History Father -: Heart disease, Hypertension, Lung disease, GI disease, Stroke, Liver disease, Kidney disease Mother -: Hypertension, Lung disease, GI disease, Blood disorders, Other (see notes) Notes: Epilepsy, chronic pain - Social History Smoking Status: Former smoker Alcohol use: No CD- Drugs: No Caffeine use: Yes Place of Residence: Home Review of Systems 10-point ROS is otherwise unremarkable Physical Examination - Physical Exam General: Oriented x2, Mild distress, Confused HEENT: PERRLA, Sclerae nonicteric Respiratory: Diminished (bilaterally at bases), Other (nonlabored on 3L NC) Cardiovascular: Irregular heart rate/rhythm Gastrointestinal: Soft and benign, Non-distended, No tenderness Musculoskeletal: Tenderness (b/l knees, L wrist, L lateral hip) Integumentary: Other (large ecchymosis from mid thigh to lower leg on left, few smaller scattered ecchymosis throughout body. ) Neurological: Normal strength at 5/5 x4 extr, Cranial nerves 3-12 intact, Abnormal speech (slight slurring) Urinary: Gray catheter (placed in ED) - Studies Laboratory Data (last 24 hrs) 04/03/21 05:00: PT 12.6 H, INR 1.09 04/03/21 05:00: WBC 7.50 D, Hgb 7.9 L, Hct 26.6 L, Plt Count 211 04/03/21 05:00: Sodium 144, Potassium 3.9, BUN 21 H, Creatinine 0.93, Glucose 129 H, Magnesium 2.5 H, Total Bilirubin 0.6, AST 28, ALT 35, Alkaline Ph osphatase 55 Assessment and Plan - Advance Directives Does patient have a Living Will: No Does patient have a Durable POA for Healthcare: No Physician Review Additional Text: Problem list acute blood loss anemia with history of chronic anemia COPD on home O2 CAD HTN Chronic atrial fibrillation on anticoagulation HIV Bipolar Hyperlipidemia Morbid obesity GERD This is a second time patient has fallen illness last week. First fall resulted in a right wrist fracture, underwent surgery 2 days ago Briefly discussed with patient, concern of her ability to care for self with these frequent falls, would likely benefit from SNF, patient refuses at this time Patient now reporting right wrist pain, recently had surgery on this. Will obtain x-ray Orthopedic surgery, consulted given recent surgery, worsening pain, new left knee pain and swelling, possible effusion Continue with pain control, with p.o. pain medication, will avoid IV pain medication Antiemetics as needed Physical therapy consult On Eliquis for atrial fibrillation, with large ecchymosis, will hold today, Anemic, hemoglobin below 8 now, likely from her large ecchymosis Repeat CBC this afternoon, will transfuse for hemoglobin less than 8 Consider reinitiation of anticoagulation once hemoglobin stable Obtain/confirm home medications and restart as appropriate Gray placed in ED, can dc once able to assist/ambulate better VTE: hold due to acute blood loss Code: DNR Dispo: anticipate dc home in 24-48hrs refused SNF Time Spent Managing Pts Care (In Minutes): 60
--- NOTE | 2021-04-03 10:20 | RAD REPORT ---
EXAM DESCRIPTION: RAD - Wrist Right 3 View - 04/03/2021 9:55 am CLINICAL HISTORY: recent surgery, new fall, increased pain COMPARISON: Intraoperative images April 01, pre-surgical images March 31 FINDINGS: Surgical hardware is in place with plate and screw fixation of the previously detailed dis jose radius fracture. No fracture of the hardware. Alignment and positioning of the fracture fragments is not clearly different from the intraoperative imaging. A new acute fracture is not identifiable. No dislocation. No periosteal reaction. IMPRESSION: No new fracture identified. Fracture fragments and surgical hardware are not clearly different from the intraoperative imaging.
[2021-04-03] MEDS ORDERED: ACETAMINOPHEN 500 MG TAB PO PRN (12:28)
[2021-04-03] MEDS ORDERED: ALBUTEROL 2.5 MG/3 ML NEB SOL NEB PRN ×2 (12:28)
[2021-04-03] MEDS ORDERED: ONDANSETRON 4 MG/2 ML VIAL IV PRN (12:28)
[2021-04-03 12:44] VITALS: BMI 38.6
[2021-04-03] MEDS ORDERED: PNEUMOCOCCAL VACCINE 0.5 ML IMVAC ONE (13:00)
[2021-04-03 14:12] LABS: Urine Appearance CLEAR (Clear); Urine Bilirubin NEGATIVE (Negative); Urine Blood NEGATIVE (Negative); Urine Color YELLOW (Yellow); Urine Glucose NEGATIVE (Negative); Urine Protein TRACE (Negative); Urine pH 5.5 (5.0-7.0)
[2021-04-03 14:22] LABS: Urine Microscopic Reflex ORDER UMIC
[2021-04-03 15:01] LABS: Urine Bacteria <20 /HPF (<20); Urine Mucus LIGHT /HPF (NONE SEEN); Urine RBC <5 /HPF (NONE SEEN)
[2021-04-03] MEDS: HYDROCODONE/APAP 5/325 MG TAB PO PRN (16:41)
[2021-04-03 17:03] LABS: Hematocrit 25.1 % (36.0-45.0); MPV 7.5 fL (7.6-11.3); RBC Red Blood Cell Count 3.55 M/uL (3.86-4.86)
[2021-04-03 19:30] LABS: Blood Morphology Comment NOTED (NOT SEEN); Hypochromasia 1+; Platelet Estimate ADEQ; White Blood Cell Scan OK (OK)
[2021-04-03] MEDS: lisinopriL 20 MG TAB PO SCH (20:18)
[2021-04-03] MEDS: METOPROLOL TAR 50 MG TAB PO SCH (20:19)
[2021-04-03] MEDS: BUSPIRONE HCL 15 MG TABLET PO SCH (20:19)
[2021-04-03] MEDS: ISENTRESS 400 MG PO SCH (20:20)
[2021-04-03] MEDS: ALBUTEROL IH SCH (20:21)
[2021-04-03] MEDS: [UNRECOGNIZED DRUG - OTHER] IH SCH (20:21)
--- NOTE | 2021-04-03 20:36 | EKG ---
Test Date: 2021-04-03 Test Time: 04:39:15 Ribbing Machine Operator: TW MEASUREMENT RESULTS: Intervals: Rate: 71 [place]: QRSD: 76 QT: 420 QTc: 456 [place]: P: [place]: QRS: -2 T: 25 INTERPRETIVE STATEMENTS: Accelerated Junctional rhythm Minimal voltage criteria for LVH, may be normal variant Nonspecific ST and T wave abnormality Abnormal ECG Compared to ECG 03/29/2021 00:28:24 Accelerated junctional rhythm now present Left ventricular hypertrophy now present Sinus rhythm no longer present ST (T wave) deviation still present Electronically Signed On 04-03-21 20:34:59 PRICING [facility] by Per Crane
[2021-04-03] MEDS ORDERED: HOME MED 1 EA UNK (Lisinopril [Zestril] 40 MG Tablet) PO SCH (21:00)
[2021-04-03] MEDS ORDERED: HOME MED 1 EA UNK (Metoprolol Tartrate [Metoprolol Tartrate] 100 MG Tablet) PO SCH (21:00)
[2021-04-03] MEDS: LORAZEPAM 1 MG TABLET PO PRN (22:22)
[2021-04-04] MEDS: HYDROCODONE/APAP 5/325 MG TAB PO PRN ×4 (00:08→19:44)
[2021-04-04] MEDS ORDERED: NA CHLORIDE 0.9% 250 ML ONE (01:53)
[2021-04-04] MEDS: METOPROLOL TAR 50 MG TAB PO SCH ×2 (06:56→19:44)
[2021-04-04] MEDS: BUPROPION HCL XL 150 MG TAB PO SCH (08:08)
[2021-04-04] MEDS: PANTOPRAZOLE 40MG TABLET PO SCH (08:08)
[2021-04-04] MEDS: lisinopriL 20 MG TAB PO SCH ×2 (08:08→19:45)
[2021-04-04] MEDS: BUSPIRONE HCL 15 MG TABLET PO SCH ×2 (08:08→19:45)
[2021-04-04] MEDS: SERTRALINE HCL 100 MG TAB PO SCH (08:08)
[2021-04-04] MEDS: [UNRECOGNIZED DRUG - OTHER] IH SCH (08:09)
[2021-04-04] MEDS: ALBUTEROL IH SCH (08:09)
[2021-04-04] MEDS: ALBUTEROL INHALER 60 PUFF/8 GM IH SCH ×2 (08:30→19:45)
[2021-04-04] MEDS: TENOFOV ALAFENAM PO SCH (08:31)
[2021-04-04] MEDS: EMTRICITABINE PO SCH (08:31)
[2021-04-04] MEDS: ISENTRESS 400 MG PO SCH ×2 (08:32→19:46)
[2021-04-04 08:54] LABS: Albumin 2.5 g/dL (3.4-5.0); Bilirubin Total 0.6 mg/dL (0.2-1.0); Magnesium 2.4 mg/dL (1.8-2.4); Protein, Total 5.9 g/dL (6.4-8.2)
[2021-04-04] MEDS ORDERED: HOME MED 1 EA UNK (Dexlansoprazole [Dexilant] 30 MG Cap.Dr.Bp) PO SCH (09:00)
[2021-04-04 09:55] LABS: Absolute Lymphocytes (CBC) 1.6 K/uL (0.7-4.9); Basophils % 0.7 % (0-1.3); Hematocrit 29.4 % (36.0-45.0); Lymphocytes % 19.1 % (15.3-44.8); MPV 7.3 fL (7.6-11.3); RBC Red Blood Cell Count 3.99 M/uL (3.86-4.86)
[2021-04-04] MEDS: HYDRALAZINE HCL 25 MG TABLET PO SCH ×3 (10:57→19:44)
[2021-04-04] MEDS: AMLODIPINE 10 MG TAB PO SCH (10:58)
[2021-04-04] MEDS: AMIODARONE HCL 200 MG TAB PO SCH (10:58)
--- NOTE | 2021-04-04 14:50 | P.PN ---
Date of Service: 04/04/21 Subjective: improving, pain improving, swelling is down ambulated to bedside commode, but still feels unsteady reports no / minimal assistance at home ROS: 10 point ROS as noted above, otherwise negative Physical exam General: Oriented x3, NAD HEENT: Sclerae nonicteric, normal conjunctiva Respiratory: Diminished (bilaterally at bases), nonlabored on 3L NC Cardiovascular: Irregular heart rate/rhythm Gastrointestinal: Soft and benign, Non-distended, No tenderness Musculoskeletal: Tenderness (b/l knees, L wrist, L lateral hip) Integumentary: large ecchymosis from mid thigh to lower leg on left, few smaller scattered ecchymosis throughout body. Neurological: Normal strength at 5/5 x4 extr, Cranial nerves 3-12 intact, normal speech Urinary: Gray catheter (placed in ED) Problem list acute blood loss anemia with history of chronic anemia COPD on home O2 CAD HTN Chronic atrial fibrillation on anticoagulation HIV Bipolar Hyperlipidemia Morbid obesity GERD This is a second time patient has fallen illness last week. First fall resulted in a right wrist fracture, underwent surgery 2 days prior to admission Initially refused SNF, this morning she states she may need to think about it Orthopedic surgery, consulted given recent surgery, worsening pain, new left knee pain and swelling, possible effusion Continue with pain control, with p.o. pain medication, will avoid IV pain medication Antiemetics as needed Physical therapy consult On Eliquis for atrial fibrillation, with large ecchymosis, continue to hold Hemoglobin drops, secondary to trauma/ecchymosis. Receive 1 unit PRBCs overnight with improvement Continue to monitor hemoglobin, no further evidence of bleeding Consider reinitiation of anticoagulation once hemoglobin stable Restarted home medications, antihypertensives Gray placed in ED, will discontinue today, patient able to ambulate to bedside commode VTE: hold due to acute blood loss Code: DNR Dispo: anticipate dc home in 24-48hrs refused SNF Time Spent Managing Pts Care (In Minutes): 35
[2021-04-04 21:08] VITALS: O2SAT 99
--- OUTSIDE RECORDS SUMMARY | 2021-04-04 22:21 | XMS REPORT | Continuity of Care Document ---
:1955 Author Organization [facility] t Address [address] [place] [address] Care Team Providers Name Role Phone MURPHY Primary Care Physician Unavailable HEMATPOUR Attending Clinician Unavailable SELF Attending Clinician Unavailable Ronald DHILLON Attending Clinician Prabhu SANCHEZ Attending Clinician Unavailable Shelia JENKINS, H Attending Clinician Tiny SALGUERO Attending Clinician Lab, Fam Pob I Attending Clinician Unavailable Doctor Unassigned, Name Attending Clinician Unavailable Carol Ann IZQUIERDO M. Attending Clinician Yazmni JENKINS Attending Clinician [facility] Attending Clinician Unavailable Devin SALGUERO R [...] Number Effective Date Expiration Date Christian lloyd [facility] [employer] [id number] 2012 ST[employer]US 00:00:00 [employer] [id number] 2019 BEHAVIORAL 00:00:00 SOL[employer] [place]ICAID OF [place] [id number] 2020 00:00:00 Problems Condition Condition Condition Status Onset Resolution Last Treating Co mments Source Name Details Category Date Date Treatment Clinician Date Gastropare Gastropare Disease Active Overview : Methodi sis sis 4-[address] [facility] note l might be different from the original. Added automatic ally from request for surgery [id number] Dysphagia Dysphagia Disease Active Overview: Methodi 4-[address] 00:00: [facility] 00 note l might be different from the original. Added automatic ally from request for surgery [id number] CCL / EPS Diagnosis Active 2020-10-15 Memoria PVI 3-30 17:07:00 l ABLATION CCL / 00:00: [place] W/ CARTO / EPS PVI 00 GA / T ABLATION W/ CARTO / GA / T Active 08/19/2020 [facility] Food Food Disease Active 2019-05 Methodi [...] hepatitis 11-18 ity of C C 00:00: [place] [facility] Hypertensi Hypertensi Disease Active U [...] Date Source Natural father Diabetes [facility] Natural father Other - see comments [facility] Natural father Coronary [facility] Natural father [facility] Natural father [facility] Natural mother Cancer [facility] Social History Social Habit Start Date Stop Date Quantity Comments Source History [facility] Alcohol Std Drinks History [facility] Alcohol Binge Exposure to Not sure [facility] SARS-CoV-2 (event) History of tobacco Smoker [facility] use Hospital Cigarettes smoked 2020-12-08 2020-12-[address] current (pack per 00:00:00 00:00:00 Hospita l day) - Reported Cigarette 2020-12-08 2020-12-08 [facility] pack-years 00:00:00 00:00:00 Hospital Tobacco use and 2020-10-31 2020-10-31 Never used [facility] exposure 00:00:00 00:00:00 Alcohol intake 2020-10-31 2020-10-31 Ex-drinker [facility] 00:00:00 00:00:00 (finding) History SDOH 2020-10-31 2020-10-31 1 [facility] Alcohol Frequency 00:00:00 00:00:00 Alcohol Comment 2016-09-23 2016-09-23 rare [facility] 00:00:00 00:00:00 Hospital Tobacco Comment 2015-02-14 2015-02-14 Smokes approx 1-2 Un iversity of 00:00:00 00:00:00 cigarettes per [place] [facility] day when she Branch smokes Sex Ass[birth year] [facility] 00:00:00 00:00:00 Smoking Status Start Date Stop Date Source Former smoker 2020-10-31 00:00:00 2020-10-31 [facility]00 [facility] Medications Ordered Filled Start Stop Current Ordering Indication Dosage Frequency Signature Comments Components Source Medication Medication Date Date Medication? Clinician (SIG) Name Name LORazepam 2 2020-05 Yes [id number] 2mg Take 1 [facility] mg tablet 1-03 tablet by ity o f 00:00: mouth 2 [place] 00 (two) Medical times Branch daily as needed (anxiety). raltegravir Yes [id number] 400mg Take 1 [facility] (ISENTRESS) 9-24 tablet by ity of 400 mg 00:00: mouth 2 [place] tablet 00 (two) Medical times Branch daily. buPROPion Yes [id number] 150mg Take 1 U nivers XL 9-08 tablet by ity of (WELLBUTRIN 00:00: mouth [place] XL) 150 mg 00 daily. Medical 24 hr Branch tablet SERTraline Yes [id number] 200mg Take 2 [facility] 100 mg 9-08 tablets by ity of tablet 00:00: mouth [place] 00 daily. Medical Branch busPIRone Yes [id number] 30mg Take 1 Un matt 30 mg 8-30 tablet by ity of tablet 00:00: mouth 2 [place] 00 (two) Medical times Branch daily. LORazepam 2 2020- No [id number] 2mg Take 1 [facility] mg tablet 8-30 11-03 tablet by ity of 00:00: 00:00 mouth 2 [place] 00 :00 (two) Medical times Branch daily as needed (anxiety). metoprolol 2021- No [id number] Take 1 [facility] tartrate 7-26 01-23 tablet [...] area in groin) hydrALAZINE 2020-0 Yes 50mg Q.[id number] Take 50 mg Methodi (APRESOLINE 7-19 [id number] mouth [address] ) 50 MG [...] Hospita tablet 25 daily. l nystatin-tr Yes [id number] Apply to [facility] iamcinolone 11-25 area(s) 3 ity of cream 00:00: (three) [place] 00 times Medical daily. Branch emtricitabi Yes [id number] Take one [facility] ne-tenofovi 11-25 po daily ity of r alafen 00:00: [place] (DESCOVY) 00 Medical tablet Branch budesonide- 2020- No 1{puff} QD Inhale 1 Methodi formoteroL 6-25 06-[address] (SYMBICORT) 19:37: 00:00 morning. H ospita 160-4.5 02 :00 l mcg/actuati on inhaler hydrALAZINE 2020- No [id number] 50mg Q.[id number] Take 1 [facility] (Apresoline 6-11 09-10 [id number] tablet (50 Health ) 50 MG 00:00: 04:59 3D mg total) tablet 00 :00 by mouth 3 (three) times a day. hydrALAZINE 2020- No [id number] 50mg Q.[id number] Take 1 [facility] (Apresoline 10-31 [id number] tablet (50 Health ) 50 MG 00:00: 04:59 3D mg total) tablet 00 :00 by mouth 3 (three) times a day. hydrALAZINE 2020- No [id number] 50mg Q.[id number] Take 1 [facility] (Apresoline 10-31 [id number] tablet (50 Health ) 50 MG 00:00: 04:59 3D mg total) tablet 00 :00 by mouth 3 (three) times a day. hydrALAZINE 2020- No [id number] 50mg Q.[id number] Take 1 UT (Apresoline 10-31 [id number] tablet (50 Health ) 50 MG 00:00: [...] % 00:00: ointment 00 nystatin 2020- No [id number] Q.25D Take 5 mL Methodi (MYCOSTATIN 10-06 [...] times a day for 10 days. clobetasol 2020- Yes 1{appli Q12H Apply 1 U T (Temovate) 5-14 cation} applicatio Health 0.05 % 00:00: n ointment 00 topically every 12 (twelve) hours. LORazepam Yes [facility] (Ativan) 2 5-14 Health MG tablet 00:00: 00 clobetasol 2020-0 Yes 1{appli Q12H Apply 1 U T (Temovate) 5-14 cation} applicatio Health 0.05 % 00:00: n ointment 00 topically every 12 (twelve) hours. LORazepam Yes [facility] (Ativan) 2 5-14 Health MG tablet 00:00: 00 amLODIPine Yes 10mg QD Take 10 mg U T (Norvasc) 5-14 by mouth 1 Heal th 10 MG 00:00: (one) time tablet 00 each day. clobetasol Yes 1{appli Q12H Apply 1 U T (Temovate) 5-14 cation} applicatio Health 0.05 % 00:00: n ointment 00 topically every 12 (twelve) hours. LORazepam Yes UT (Ativan) 2 5-14 Health MG tablet 00:00: 00 amLODIPine 0 Yes 10mg QD Take 10 mg U T (Norvasc) 5-14 by mouth 1 Heal th 10 MG 00:00: (one) time tablet 00 each day. clobetasol Yes 1{appli Q12H Apply 1 U T (Temovate) 5-14 cation} applicatio Health 0.05 % 00:00: n ointment 00 topically every 12 (twelve) hours. LORazepam 2020-0 Yes [facility] (Ativan) 2 5-14 Health MG tablet 00:00: 00 Eliquis 5 2020-0 Yes UT [...] ia 4-10 (Same as: l 14:00: Norvasc) [place] 00 emtricitabi No Notes: Caesar lisa ne 200 MG / 4-10 (Same as: l tenofovir 14:00: Descovy) Herm ariel alafenamide 00 Non-formul 25 MG Oral nancy Tablet [Descovy] pantoprazol No Notes: Caesar lisa e 4-10 Tablet l 14:00: should not [place] 00 be chewed or crushed. (Same as: Protonix) Amiodarone No Notes: Memor ia 4-10 (Same as: l 14:00: Cordarone) [place] 00 Amlodipine No Notes: Memor ia 4-10 (Same as: l 14:00: Norvasc) [place] emtricitabi No Notes: Caesar lisa ne 200 [...] e 4-10 Tablet l 14:00: should not [place] 00 be chewed or crushed. (Same as: [...] ia 4-10 (Same as: l 14:00: Cordarone) [place] Amlodipine No Notes: Memor ia 4-10 (Same [...] ia 4-10 (Same as: l 14:00: Cordarone) [place] Amlodipine No Notes: Memor ia 4-10 (Same as: l 14:00: Norvasc) [place] emtricitabi No Notes: Caesar lisa ne 200 [...] ia 4-10 (Same as: l 14:00: Cordarone) [place] 00 Amlodipine No Notes: Memor ia 4-10 (Same as: l 14:00: Norvasc) [place] 00 emtricitabi No Notes: Caesar lisa ne 200 MG / 4-10 (Same as: l tenofovir 14:00: Descovy) Herm ariel alafenamide 00 Non-formul 25 MG Oral nancy Tablet [Descovy] Sertraline No Notes: Memor ia 4-10 (Same as: l 14:00: Zoloft) [place] 00 pantoprazol No Notes: Caesar lisa e 4-10 Tablet l 14:00: should not [place] 00 be chewed or crushed. (Same as: [...] M emoria 4-10 interfere l 02:00: w/enteral [place] 00 feeds - Take 1 hr before or 2 hr after antacids, dairy pdt, meals & minerals - On empty stomach. For patients unable to swallow tablet, dissolve in 10mL - 30mL of water or juice and stir before giving. (Same As: Carafate) Saline No Notes: Memoria Flush 0.9% 4-10 (Same as: l 02:00: BD [place] 00 Posiflush) Eliquis No Notes: Memoria 4-10 Same as: l 02:00: Eliquis [place] Hydralazine No Notes: Caesar lisa Hydrochlori 4-10 [...] 0.9% 4-10 (Same as: l 02:00: BD [place] 00 Posiflush) Eliquis No Notes: Memoria 4-10 Same as: l 02:00: Eliquis [place] 00 Hydralazine No Notes: Caesar lisa Hydrochlori [...] 0.9% 4-10 (Same as: l 02:00: BD [place] Posiflush) Eliquis No Notes: Memoria 4-10 Same as: l 02:00: Eliquis [place] 00 Hydralazine No Notes: Caesar lisa Hydrochlori 4-10 (Same as: l de 50 MG 02:00: Apresoline Her mitchell Oral Tablet 00 ) May interfere w/enteral feedings Take With Food Sucralfate No Notes: May M emoria 4-10 interfere l 02:00: w/enteral [place] 00 feeds - Take 1 hr before or 2 hr after antacids, dairy pdt, meals & minerals - On empty stomach. For patients unable to swallow tablet, dissolve in 10mL - 30mL of water or juice and stir before giving. (Same As: Carafate) Saline No Notes: Memoria Flush 0.9% 4-10 (Same as: l 02:00: BD [place] 00 Posiflush) Eliquis No Notes: Memoria 4-10 Same as: l 02:00: Eliquis [place] Hydralazine No Notes: Caesar lisa Hydrochlori 4-10 (Same as: l de 50 MG 02:00: Apresoline Her mitchell Oral Tablet 00 ) May interfere w/enteral feedings Take With Food Sucralfate No Notes: May M emoria 4-10 interfere l 02:00: w/enteral [place] 00 feeds - Take 1 hr before [...] not exceed l #3 00:12: 4gm/day of [place] acetaminop hen. (Same as: Tylenol with Codeine # 3) acetaminoph No Notes: Do M emoria en-codeine 4-10 not exceed l #3 00:12: 4gm/day of [place] acetaminop hen. (Same as: Tylenol with Codeine # 3) acetaminoph No Notes: Do M emoria en-codeine 4-10 not exceed l #3 00:12: 4gm/day of [place] acetaminop hen. (Same as: Tylenol with Codeine [...] tartrate 4-09 tab, l 22:00: Route: PO, [place] 00 Drug form: TAB, BID, Dosing Weight [...] oria 4-09 tab, l 22:00: Route: PO, [place] 00 Drug form: TAB, BID, Dosing Weight 97.273, kg, Start date: 08/29/20 17:00:00 CDT, Duration: 30 day, Stop date: 09/28/20 9:00:00 CDT metoprolol 2021-0 No 100 mg, 1 Me moria tartrate 4-09 tab, l 22:00: Route: PO, [place] 00 Drug form: TAB, BID, Dosing Weight [...] tartrate 4-09 tab, l 22:00: Route: PO, [place] 00 Drug form: TAB, BID, Dosing Weight [...] oria 4-09 tab, l 22:00: Route: PO, [place] Drug form: TAB, BID, Dosing Weight 97.273, kg, Start date: 08/29/20 17:00:00 CDT, Duration: 30 day, Stop date: 09/28/20 9:00:00 CDT metoprolol 2020-0 No 100 mg, 1 Me moria tartrate 4-09 tab, l 22:00: Route: PO, [place] 00 Drug form: TAB, BID, Dosing Weight [...] tartrate 4-09 tab, l 22:00: Route: PO, [place] Drug form: TAB, BID, Dosing Weight 97.273, [...] Notes: Memoria 4-09 (Same l 17:07: as:MORPhin [place] 00 e Sulfate) Morphine No Notes: Memoria 4-09 (Same l 17:07: as:MORPhin [place] 00 e Sulfate) Morphine No Notes: Memoria 4-09 (Same l 17:07: as:MORPhin [place] 00 e Sulfate) Morphine No Notes: Memoria 4-09 (Same l 17:07: as:MORPhin [place] 00 e Sulfate) Morphine No Notes: Memoria 4-09 (Same l 17:07: as:MORPhin [place] 00 e Sulfate) Morphine No Notes: Memoria 4-09 (Same l 17:07: as:MORPhin [place] 00 e Sulfate) buPROPion No 150 mg, [...] tab, PO, l oral 15:27: Daily, # [place] enteric 00 30 tab, 0 coated Refill(s), tablet Pharmacy: [facility], 162.56, cm, 08/29/20 5:30:00 CDT, Height, 97.273, kg, 08/29/20 5:30:00 CDT, Weight pantoprazol 2021-0 Yes 40 mg = 1 M emoria e 40 mg 4-09 tab, PO, l oral 15:27: Daily, # [place] enteric 00 30 tab, 0 coated Refill(s), tablet Pharmacy: [facility], 162.56, cm, 08/29/20 5:30:00 CDT, Height, 97.273, kg, 08/29/20 5:30:00 CDT, Weight pantoprazol 2021-0 Yes 40 mg = 1 M emoria e 40 mg 4-09 tab, PO, l oral 15:27: Daily, # [place] enteric 00 30 tab, 0 coated Refill(s), tablet Pharmacy: [facility], 162.56, cm, 08/29/20 5:30:00 CDT, Height, 97.273, kg, 08/29/20 5:30:00 CDT, Weight pantoprazol 2021-0 Yes 40 mg = 1 M emoria e 40 mg 4-09 tab, PO, l oral 15:27: Daily, # [place] enteric 00 30 tab, 0 coated Refill(s), tablet Pharmacy: [facility], 162.56, cm, 08/29/20 5:30:00 CDT, Height, 97.273, kg, 08/29/20 5:30:00 CDT, Weight pantoprazol 2021-0 Yes 40 mg = 1 M emoria e 40 mg 4-09 tab, PO, l oral 15:27: Daily, # [place] enteric 00 30 tab, 0 coated Refill(s), tablet Pharmacy: [facility], 162.56, cm, 08/29/20 5:30:00 CDT, Height, 97.273, kg, 08/29/20 5:30:00 CDT, Weight pantoprazol 2021-0 Yes 40 mg = 1 M emoria e 40 mg 4-09 tab, PO, l oral 15:27: Daily, # [place] enteric 00 30 tab, 0 coated Refill(s), tablet Pharmacy: [facility], 162.56, cm, 08/29/20 5:30:00 CDT, Height, 97.273, kg, 08/29/20 5:30:00 CDT, Weight pantoprazol 2020-0 Yes 40 mg = 1 M emoria e 40 mg 4-09 tab, PO, l oral 15:27: Daily, # [place] enteric 00 30 tab, 0 coated Refill(s), tablet Pharmacy: [facility], 162.56, cm, 08/29/20 5:30:00 CDT, Height, 97.273, kg, 08/29/20 5:30:00 CDT, Weight pantoprazol 2020-0 No 40 mg = 1 M emoria e 40 mg 4-09 tab, PO, l oral 15:26: Daily, # [place] enteric 00 30 tab, 0 coated Refill(s) tablet sucralfate 2020-0 Yes 1 gm = 1 Mem oria 1 g oral 4-09 tab, PO, l tablet 15:26: Q12H, # 28 Skylar nn 00 tab, 0 Refill(s), Pharmacy: [facility] [id number], 162.56, cm, 08/29/20 5:30:00 CDT, Height, 97.273, kg, 08/29/20 5:30:00 CDT, Weight pantoprazol 2020-0 No 40 mg = 1 M emoria e 40 mg 4-09 tab, PO, l oral 15:26: Daily, # [place] enteric 00 30 tab, 0 coated Refill(s) tablet sucralfate 2020-0 Yes 1 gm = 1 Mem oria 1 g oral 4-09 tab, PO, l tablet 15:26: Q12H, # 28 Skyl[place] nn 00 tab, 0 Refill(s), Pharmacy: [place] [address], 162.56, cm, 08/29/20 5:30:00 CDT, Height, 97.273, [...] Skylar nn 00 tab, 0 Refill(s), Pharmacy: [facility], 162.56, cm, 08/29/20 5:30:00 CDT, Height, 97.273, kg, 08/29/20 5:30:00 CDT, Weight pantoprazol 2020-0 No 40 mg = 1 M emoria e 40 mg 4-09 tab, PO, l oral 15:26: Daily, # [place] enteric 00 30 tab, 0 coated Refill(s) tablet sucralfate 2020-0 Yes 1 gm = 1 Mem oria 1 g oral 4-09 tab, PO, l tablet 15:26: Q12H, # 28 Skyl[place] nn 00 tab, 0 Refill(s), Pharmacy: [place] [address], 162.56, cm, 08/29/20 5:30:00 CDT, Height, 97.273, [...] Skylar nn 00 tab, 0 Refill(s), Pharmacy: [facility], 162.56, cm, 08/29/20 5:30:00 CDT, Height, 97.273, kg, 08/29/20 5:30:00 CDT, Weight pantoprazol 2020-0 No 40 mg = 1 M emoria e 40 mg 4-09 tab, PO, l oral 15:26: Daily, # [place] enteric 00 30 tab, 0 coated Refill(s) tablet sucralfate 2020-0 Yes 1 gm = 1 Mem oria 1 g oral 4-09 tab, PO, l tablet 15:26: Q12H, # 28 Sk[place] nn 00 tab, 0 Refill(s), Pharmacy: [facility], 162.56, cm, 08/29/20 5:30:00 CDT, [...] Skylar nn 00 tab, 0 Refill(s), Pharmacy: [facility], 162.56, cm, 08/29/20 5:30:00 CDT, Height, 97.273, kg, 08/29/20 5:30:00 CDT, Weight Saline No Notes: Memoria Flush 0.9% 4-09 (Same as: l 15:25: BD [place] 00 Posiflush) Lorazepam No Notes: Memori a 4-09 (Same as: l 15:25: Ativan) Saline No Notes: Memoria Flush 0.9% 4-09 (Same as: l 15:25: BD [place] 00 Posiflush) Lorazepam No Notes: Memori a 4-09 (Same as: l 15:25: Ativan) Saline No Notes: Memoria Flush 0.9% 4-09 (Same as: l 15:25: BD [place] 00 Posiflush) Saline No Notes: Memoria Flush 0.9% 4-09 (Same as: l 15:25: BD [place] 00 Posiflush) Lorazepam No Notes: Memori a 4-09 (Same as: l 15:25: Ativan) Lorazepam No Notes: Memori a 4-09 (Same as: l 15:25: Ativan) [place] 00 Saline No Notes: Memoria Flush 0.9% 4-09 (Same as: l 15:25: BD [place] 00 Posiflush) Lorazepam No Notes: Memori a 4-09 (Same as: l 15:25: Ativan) [place] Saline No Notes: Memoria Flush 0.9% - (Same as: l 15:25: BD [place] 00 Posiflush) Lorazepam No Notes: Memori a - (Same as: l 15:25: Ativan) Saline No Notes: Memoria Flush 0.9% 08-29 (Same as: l 15:25: BD [place] 00 Posiflush) Lorazepam No Notes: Memori a - (Same as: l 15:25: Ativan) Isuprel HCl No Route: IV, Memoria (ANES) 0.2 08-29 Drug form: l mg + 15:00: INJ, [place] 00 Dosing Weight 97.3, kg, Start date: [...] oria ne 08-29 Route: l 14:01: IVP, [place] 00 Q5Min, Dosing Weight 97.273, kg, PRN [...] Memori a 08-29 Route: l 14:01: IVP, [place] 00 Q2MIN, Dosing Weight 97.273, kg, PRN [...] 08-29 Route: PO, l 14:01: Drug form: [place] 00 TAB, ONCE, Dosing Weight 97.273, kg, [...] lisa 08-29 Route: l 14:01: IVP, PRN, [place] 00 Dosing Weight 97.273, kg, PRN Benzodiaze pine Reversal, Initial dose, Start date: 08/29/20 9:01:00 CDT, Duration: 30 day, Stop date: 09/28/20 9:00:00 CDT Naloxone 2020-0 No 0.4 mg, Memori a 08-29 Route: l 14:01: IVP, [place] 00 Q2MIN, Dosing Weight 97.273, kg, PRN [...] 08-29 Route: PO, l 14:01: Drug form: [place] 00 TAB, ONCE, Dosing Weight 97.273, kg, [...] lisa 08-29 Route: l 14:01: IVP, PRN, [place] 00 Dosing Weight 97.273, kg, PRN Benzodiaze pine Reversal, Initial dose, Start date: 08/29/20 9:01:00 CDT, Duration: 30 day, Stop date: 09/28/20 9:00:00 CDT Naloxone 1-0 No 0.4 mg, Memori a 08-29 Route: l 14:01: IVP, [place] 00 Q2MIN, Dosing Weight 97.273, kg, PRN Narcotic Reversal, Start date: 08/29/20 9:01:00 CDT, Duration: 8 doses or times, Stop date: Limited # of times Flumazenil 1-0 No 0.2 mg, Caesar lisa 08-29 Route: l 14:01: IVP, PRN, Amrty Dosing Weight 97.273, kg, PRN Benzodiaze pine Reversal, Initial dose, Start date: 08/29/20 9:01:00 CDT, Duration: 30 day, Stop date: 09/28/20 9:00:00 CDT Ondansetron 2021-0 No 4 mg, Memor ia 08-29 Route: l 14:01: IVP, ONCE, [place] 00 Dosing Weight 97.273, kg, PRN Nausea & Vomiting, Start date: 08/29/20 9:01:00 CDT Naloxone 1-0 No 0.4 mg, Memori a 08-29 Route: l 14:01: IVP, [place] 00 Q2MIN, Dosing Weight 97.273, kg, PRN Narcotic Reversal, Start date: 08/29/20 9:01:00 CDT, Duration: 8 doses or times, Stop date: Limited # of times Ondansetron 2021-0 No 4 mg, Memor ia 08-29 Route: l 14:01: IVP, ONCE, [place] 00 Dosing Weight 97.273, kg, PRN Nausea [...] oria ne 08-29 Route: l 14:01: IVP, [place] 00 Q5Min, Dosing Weight 97.273, kg, PRN Pain Score 7-10, Start date: 08/29/20 9:01:00 CDT, Duration: 4 doses or times, Stop date: Limited # of times Flumazenil 2020-0 No 0.2 mg, Caesar lisa 08-29 Route: l 14:01: IVP, PRN, [place] 00 Dosing Weight 97.273, kg, PRN Benzodiaze [...] lisa 08-29 Route: l 14:01: IVP, PRN, [place] 00 Dosing Weight 97.273, kg, PRN Benzodiaze pine Reversal, Initial dose, Start date: 08/29/20 9:01:00 CDT, Duration: 30 day, Stop date: 09/28/20 9:00:00 CDT Naloxone 2020-0 No 0.4 mg, Memori a 08-29 Route: l 14:01: IVP, [place] 00 Q2MIN, Dosing Weight 97.273, kg, PRN [...] Drug form: l 10 13:15: INJ, Start [place] 00 date: 08/29/20 8:15:00 CDT, Stop date: 08/29/20 9:15:00 CDT norepinephr 202-0 No Route: IV, Memoria ine (ANES) 08-29 Drug form: l 10 13:15: INJ, Start [place] microgram 00 date: 08/29/20 8:15:00 CDT, Stop date: 08/29/20 9:15:00 CDT norepinephr 202-0 No Route: IV, Memoria ine (ANES) 08-29 Drug form: l 10 13:15: INJ, Start Marty microgram 00 date: 08/29/20 8:15:00 CDT, Stop date: 08/29/20 9:15:00 CDT norepinephr 2020-0 No Route: IV, Memoria ine (ANES) 08-29 Drug form: l 10 13:15: INJ, Start [place] microgram date: 08/29/20 8:15:00 CDT, Stop date: 08/29/20 9:15:00 CDT norepinephr 2020-0 No Route: IV, Memoria ine (ANES) 08-29 Drug form: l 10 13:15: INJ, Start [place] microgram 00 date: 08/29/20 8:15:00 CDT, Stop date: 08/29/20 9:15:00 CDT norepinephr 2020-0 No Route: IV, Memoria ine (ANES) 08-29 Drug form: l 10 13:15: INJ, Start [place] microgram 00 date: 08/29/20 8:15:00 CDT, Stop date: 08/29/20 9:15:00 CDT norepinephr 2020-0 No Route: IV, Memoria ine (ANES) 08-29 Drug form: l 10 13:15: INJ, Start [place] microgram 00 date: 08/29/20 8:15:00 CDT, Stop [...] PO, l Hydrochlori 11:42: Q24H, # 30 [place] de 150 MG 00 tab, 0 Extended Refill(s) Release Tablet 24 HR Yes 150 mg = 1 Memori a Bupropion 4-09 tab, PO, l Hydrochlori 11:42: Q24H, # 30 [place] de 150 MG 00 tab, 0 Extended Refill(s) Release Tablet 24 HR Yes 150 mg = 1 Memori a Bupropion 4-09 tab, PO, l Hydrochlori 11:42: Q24H, # 30 [place] de 150 MG 00 tab, 0 Extended Refill(s) Release Tablet 24 HR Yes 150 mg = 1 Memori a Bupropion 4-09 tab, PO, l Hydrochlori 11:42: Q24H, # 30 [place] de 150 MG 00 tab, 0 Extended Refill(s) Release Tablet 24 HR 2021-0 Yes 150 mg = 1 Memori a Bupropion 08-29 tab, PO, l Hydrochlori 11:42: Q24H, # 30 [place] de 150 MG 00 tab, 0 Extended Refill(s) Release Tablet 24 HR 2020-0 Yes 150 mg = 1 Memori a Bupropion - tab, PO, l Hydrochlori 11:42: Q24H, # 30 [place] de 150 MG 00 tab, 0 Extended Refill(s) Release Tablet 24 HR 2020-0 Yes 150 mg = 1 Memori a Bupropion - tab, PO, l Hydrochlori 11:42: Q24H, # 30 [place] de 150 MG 00 tab, 0 Extended Refill(s) Release Tablet apixaban 5 2020-0 Yes 5 mg, PO, Me moria MG Oral 08-29 Q12H, tab, l Tablet 11:41: 0 [place] [Eliquis] 00 Refill(s), For Atrial Fibrilatio n apixaban 2020-0 Yes 5 mg, PO, Me moria MG Oral 08-29 Q12H, tab, l Tablet 11:41: 0 [place] [Eliquis] 00 Refill(s), For Atrial Fibrilatio n [...] - Q12H, tab, l Tablet 11:41: 0 [place] [Eliquis] 00 Refill(s), For Atrial Fibrilatio n apixaban 5 2020-0 Yes 5 mg, PO, Me moria MG Oral 4-09 Q12H, tab, l Tablet 11:41: 0 [place] [Floydis] 00 Refill(s), For Atrial Fibrilatio n AMIODarone 2020-0 Yes 200 mg = 1 M emoria 200 mg oral 4-09 tab, PO, l tablet 11:38: Daily, # [place] 00 90 tab, 3 Refill(s) AMIODarone 2020-0 Yes 200 mg = 1 M emoria 200 mg oral 4-09 tab, PO, l tablet 11:38: Daily, # [place] 00 90 tab, 3 Refill(s) AMIODarone 2020-0 Yes 200 mg = 1 M emoria 200 mg oral 4-09 tab, PO, l tablet 11:38: Daily, # [place] 00 90 tab, 3 Refill(s) AMIODarone 2020-0 Yes 200 mg = 1 M emoria 200 mg oral 4-09 tab, PO, l tablet 11:38: Daily, # [place] 00 90 tab, 3 Refill(s) AMIODarone 2020-0 Yes 200 mg = 1 M emoria 200 mg oral 4-09 tab, PO, l tablet 11:38: Daily, # [place] 00 90 tab, 3 Refill(s) AMIODarone 2020-0 Yes 200 mg = 1 M [place] 200 mg oral 4-09 tab, PO, l tablet 11:38: Daily, # [place] 00 90 tab, 3 Refill(s) AMIODarone 2020-0 Yes 200 mg = 1 M [place] 200 mg oral 4-09 tab, PO, l tablet 11:38: Daily, # [place] 00 90 tab, 3 Refill(s) normal No [...] it y of mg tablet 08:18: (two) [place] 30 times Medical daily. Branch amiodarone Yes 100mg Take 100 Un matt 100 mg 3-17 mg by ity of tablet 08:18: mouth [place] 30 daily. [facility] predniSONE Yes [facility] [...] awake for 30 days. budesonide 2019-05 No [id number] .5mg Q.5D Take 2 mL [facility] (PULMICORT) [...] day for 30 days. acetaminoph 2019-05- [place] [id number] 1{tbl} Q6H Take 1 [facility] en-codeine 07-04-20 [...] mouth ity of 10 mg 08:06: daily. [place] tablet 41 [facility] esomeprazol 2019-05 Yes 40mg Take 40 mg [facility] (NEXIUM) 0-12 by mouth 2 ity of 40 mg 08:06: (two) [place] capsule 41 times Medical daily. Branch albuterol Yes [facility] 90 4-14 ity of mcg/actuati 00:00: [place] on inhaler 00 [facility] albuterol Yes [...] Immunization Name Name PEG FELIZID-19 2020-07-23 Completed [facility] M[facility] VACCINATION 00:00:00 [facility] PFIZER COVID-19 2020-07-02 Completed [facility] MRNA VACCINATION 00:00:00 [facility] Influenza Virus 2017-03-08 Completed [facility] y of Vaccine 00:00:00 [facility] Influenza Virus 2014-01-30 Completed [facility] y of Vaccine (3+ yrs) 00:00:00 [facility] dical Branch Pneumococcal 13 2014-01-30 Completed Universit y of Conjugate, PCV13 00:00:00 [facility] dical (Prevnar 13) Branch Pneumococcal 2012-02-16 Completed University o f Polysaccharide, 00:00:00 [facility] ical PPSV23 (PNEUMOVAX) [place] Influenza Virus 2012-02-16 Completed Universit y of Vaccine 00:00:00 [facility] PPD (TB) 2012-02-16 Completed University of 00:00:00 [facility] Hep B, Adol or Pedi 2011-09-01 Completed Unive rsity of Dosage 00:00:00 [facility] Hep B, Adol or Pedi 2011-03-17 Completed Unive rsity of Dosage 00:00:00 [facility] Influenza Virus 2011-02-10 Completed Universit y of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 2020-03-31 2020-03-31 Travel 1.2.840.1 1.2.168.973 0006 883089 Methodi 00:00:00 00:00:[address] 3.430.2.7 0.2.7.3.698 Ho spita .3.421492 084.8 l .8 2020-03-27 2020-03-27 Telephone Paula, Min 1.2.840.3 [id number] Methodi 00:00:00 00:00:[address] 3.430.2.7 Hospit a .3.273695 l .8 Results Test Description Test Time Test Comments Results Result Comments Source Gastrointestinal panel 2020-12-09 04:35:05 Test Item Value Reference Range Interpretation Comme nts Adenovirus 40/41 PCR (test code = Not Detected Specimen InformationSpecimen 5506) Source: StoolSp ecimen Site: Nonpreserved Astrovirus PCR (test code = 4790) Not Detected Campylobacter PCR (test code = Not Detected 6206) Clostridioides difficile PCR Not Detected (test code [...] Rotavirus PCR (test code = Not Detected 3190783) Salmonella PCR (test code = 4783) Not [...] PCR (test code = Not Detected 7124) [facility] Qr9969-99-85 19:17:40EXAMINATION: XR ABDOMEN 1 VW CLINICAL HISTORY: [...] clips are noted.[id number] [place] [facility] 1 Ygfa8906-22-56 19:41:02EXAMINATION: OR FL < 1 HOUR C-arm fluoroscopy was requested in OR. Location: [facility] OR room 6 Procedure: EGD WITH [...] arm fluoroscopy was requested in OR. Location: [facility] OR room 6 Procedure: EGD WITH BOTOX INJECTION INTO THE PYLORUS, ENDOFLIP, ON TABLE ESOPHAGRAM (N/A ) Start: 1140 End:1222 FluoroTime: .19sec Dose: 7.8mGy Tech: A.BIMPRESSION:Intraoperative fluoroscopic images. Radiologist was not present during the examination.Separate operative report will be issued by the physician performingthe procedure.[id number] HospitalS[facility] 2020-09-08 19:30:47 Test Item Value Reference Range Interpretation Comments Case number (test [id number] code = 5684129) Surgical pathology See link below for PDF report (test code = Lab Report 2255) Result status (test This is Supplemental code = [id number]) Report [facility] [id number] [facility] Vw Izzirwmk0293-37-84 23:06:58EXAMINATION: XR CHEST 1 VW PORTABLE HISTORY: [...] enlarged, similar to prior. Bilateral shoulder arthroplasties. [facility]-[id number] Interface, Radiology Results Incoming - 09/06/2020 6:09PM [...] silhouette is enlarged, similar to prior.Bilateral shoulder arthroplasties.[facility]-[id number] [facility]2021-04-16 16:47:23Kirit Flood MD 09/05/2020 11:48 [address]: [...] RSI: Yes Number of Attempts at Approach: [address] [place], [place] [address] gkpt9430-23-35 23:21:56 Test Item Value Reference Range Interpretation [...] T wave abnormality, consider anterior ischemia-Abnormal [facility] qualitative HBA8032-99-09 22:48:41 Test Item Value Reference Range Interpretation Comments Interpretation (test Negative results do code = 3832787) not preclude 2019-nCoV infection and should not be used as the sole basis for treatment or other patient management decisions. Negative results must be combined with clinical observations, patient history, and epidemiological information. COVID-19 qualitative Not-Detected Not-Detected RT-PCR result (test code = 28957-2) COVID-19 qualitative See link below for C ase Number: RT-PCR (test code = PDF Lab Report [id number]) [facility]2021-04-09 16:31:00 Test Item Value Reference Range Interpretation Comments POC Activated Clotting Time (test code 153 s = POC Activated Clotting Time) [facility]lineHihwjelGXDHMWUFWE2402-42-42 16:31:00 Test Item Value Reference Range Interpretation Comments POC Activated Clotting Time (test code 153 s = POC Activated Clotting Time) [facility]lineUfcbvehIUJRXFJJXX5964-04-29 16:31:00 Test Item Value Reference Range Interpretation Comments POC Activated Clotting Time (test code 153 s = POC Activated Clotting Time) [facility]lineGvlvlmqBIYYRBXZTN5467-63-22 16:31:00 Test Item Value Reference Range Interpretation Comments POC Activated Clotting Time (test code 153 s = POC Activated Clotting Time) [facility]linePvgcoaqVOPWVZRXJU3178-18-91 16:31:00 Test Item Value Reference Range Interpretation Comments POC Activated Clotting Time (test code 153 s = POC Activated Clotting Time) [facility]lineIetdblcTVCQXQFUVY9772-25-34 16:31:00 Test Item Value Reference Range Interpretation Comments POC Activated Clotting Time (test code 153 s = POC Activated Clotting Time) [place] 140621-04-09 16:31:00 Test Item Value Reference Range Interpretation Comments POC Activated Clotting Time (test code 153 s = POC Activated Clotting Time) [address]04-09 14:37:00 Test Item Value Reference Range Interpretation Comments POC Activated Clotting Time (test code 454 s = POC Activated Clotting Time) [address]04-09 14:37:00 Test Item Value Reference Range Interpretation Comments POC Activated Clotting Time (test code 454 s = POC Activated Clotting Time) [place] 140621-04-09 14:37:00 Test Item Value Reference Range Interpretation Comments POC Activated Clotting Time (test code 454 s = POC Activated Clotting Time) [facility]lineDnmrsnxUARCCBIGYE5463-90-24 14:37:00 Test Item Value Reference Range Interpretation Comments POC Activated Clotting Time (test code 454 s = POC Activated Clotting Time) [facility]lineEsnaqmdUDTOLCZAJQ0761-15-36 14:37:00 Test Item Value Reference Range Interpretation Comments POC Activated Clotting Time (test code 454 s = POC Activated Clotting Time) [facility] ShorelineBofdsnxNEWSKCSGOI2348-75-61 14:37:00 Test Item Value Reference Range Interpretation Comments POC Activated Clotting Time (test code 454 s = POC Activated Clotting Time) [facility]lineGfcuocuUENSWNOBVE4521-94-45 14:37:00 Test Item Value Reference Range Interpretation Comments POC Activated Clotting Time (test code 454 s = POC Activated Clotting Time) [facility] ShorelineRivapkzZFPCCADHRK0614-34-98 14:13:00 Test Item Value Reference Range Interpretation Comments POC Activated Clotting Time (test code 354 s = POC Activated Clotting Time) [facility] ShorelineJkpbxymONHLQAOTIC0911-30-79 14:13:00 Test Item Value Reference Range Interpretation Comments POC Activated Clotting Time (test code 354 s = POC Activated Clotting Time) [facility] ShorelineQltbupaWUXPZVVDWP3701-74-10 14:13:00 Test Item Value Reference Range Interpretation Comments POC Activated Clotting Time (test code 354 s = POC Activated Clotting Time) [facility] ShorelineIarfpiyXQBHYECJDU0800-14-04 14:13:00 Test Item Value Reference Range Interpretation Comments POC Activated Clotting Time (test code 354 s = POC Activated Clotting Time) [facility]linePdjbkexRKQISVETBF3282-60-32 14:13:00 Test Item Value Reference Range Interpretation Comments POC Activated Clotting Time (test code 354 s = POC Activated Clotting Time) [facility] ShorelineLunbywiNDOBHBCFBR7440-94-80 14:13:00 Test Item Value Reference Range Interpretation Comments POC Activated Clotting Time (test code 354 s = POC Activated Clotting Time) [facility]lineEefxevqQEPPTVLSVQ2633-49-65 14:13:00 Test Item Value Reference Range Interpretation Comments POC Activated Clotting Time (test code 354 s = POC Activated Clotting Time) [facility] OBXOZGY0144-79-91 10:37:00Negative (08/29/20 5:37 AM) [facility] GXDKH7980-49-59 10:37:83024Sjhoyiep WestportApoCell PANEL 2020-08-29 10:37:0028[facility]annCHEM TAKQY3033-74-58 10:37:001.01[facility] HermannCHEM IDQZP9245-88-37 10:37:74585Xsfhskqa HermannCHEM UHPCN8938-02-43 10:37:003.8[facility] HermannCHEM HUTMF6505-26-58 10:37:82855Vcgxylrf HermannCHEM LCEDP8724-36-82 10:37:0028[facility] HermannCHEM GOFCP4841-59-10 10:37:009.8 [facility]annCHEM GZYVC3525-02-65 10:37:0011.8[facility] HermannCHEM PANEL 2020-08-29 10:37:0059[facility] HermannCHEM ULQSM2369-49-27 10:37:002.9[facility] UbwjzoxNSDPWCJDAF4439-62-21 10:37:006.8[facility] DdshqfzVPSVOLOOIR9055-89-60 10:37:004.47[facility] KqvwfjmKHIJCWCAET6739-27-59 10:37:0010.6[facility] [place] BFLCJOFEWY6194-99-56 10:37:0034.0[facility] XyclrjjNSRNQNKGPO9823-64-20 10:37:00 76.1[facility] AsbahwcCHZFJFPATW7676-28-96 10:37:00 Test Item Value Reference Range Interpretation Comments MCH (test code = MCH) 23.8 pg 27.0-31.0 [facility] QwaxovyGDHOKVDIUD1747-49-78 10:37:0031.3[facility] HermannHEMATOLOGY 2020-08-29 10:37:0018.2[facility] WzndnrpSHQPCKGKPR5795-17-37 10:37:78702Gbasqwcx UimuonzTEOTQTFCNJ4240-19-66 10:37:007.5[facility] RnbzigaDPHVSQMFIH8828-00-54 10:37:00 Test Item Value Reference Range Interpretation Comments PT (test code = PT) 12.8 s 12.0-14.7 [facility] OtpstfxQWFECPHNMU3297-20-45 10:37:00 Test Item Value Reference Range Interpretation Comments INR (test code = INR) 0.97 1 0.85-1.17 [facility] LbccaqzVKYAQCSIBL0732-41-19 10:37:00 Test Item Value Reference Range Interpretation Comments PTT (test code = PTT) 25.0 s 22.9-35.8 [facility] NxteshmGMWTWERLHA0696-43-53 10:37:0070.5[facility] HermannHEMATOLOGY 2020-08-29 10:37:0018.8[facility] YiyztyrCJPPSAZJHM7111-63-91 10:37:009.5[facility] PpfvywzYXMKPWHEGF7362-81-59 10:37:000.9[facility] HjwqexjDIAPJJLAXX6309-85-35 10:37:000.3[facility] JphakqfJQPVKSISXH7638-02-34 10:37:004.8[facility] [place] SQLKGMCQXN8413-14-31 10:37:001.3[facility] EaaqehgSFVSCKOXCP8764-94-37 10:37:000.6 [facility] VdykwhkFMGRYDGZBA3955-27-04 10:37:000.1[facility] HermannHEMATOLOGY 2020-08-29 10:37:001+ *ABN*(08/29/20 5:37 AM)[facility] IemdahsSFBTQIZEJV5154-55-21 10:37:00Not Detected (08/29/20 5:37 AM)[facility]annBLOOD BANK RESULTS 2020-08-29 10:37:00Negative (08/29/20 5:37 AM)[facility] HermannCHEM GYHTD2478-36-39 10:37:14411Lwwtymvq HermannCHEM UOTRH2112-26-23 10:37:0028[facility] HermannCHEM XDQMV7457-86-49 10:37:001.01[facility] HermannCHEM SDVYW6183-06-59 10:37:54475 [facility]annCHEM PFKGV7939-52-32 10:37:003.8[facility] HermannCHEM PANEL 2020-08-29 10:37:01534Mkpyrcsc HermannCHEM GNEVO5252-55-67 10:37:0028[facility] HermannCHEM GYRKQ1174-47-16 10:37:009.8[facility] HermannCHEM OVEFO8165-34-61 10:37:0011.8[facility] HermannCHEM XNIAH9369-84-99 10:37:0059[facility] HermannCHEM KTHHS6501-07-14 10:37:002.9[facility] HpalijeXCSEWCCVXK7070-12-90 10:37:006.8 [facility] WrmldalZSJXRKDYFS0736-63-22 10:37:004.47[facility] HermannHEMATOLOGY 2020-08-29 10:37:0010.6[facility] SggmvbiOLEMTQZLGY9317-87-92 10:37:0034.0[facility] CoqeuivEAAYLWSRLS3953-23-95 10:37:0076.1[facility] RbwktycWFWNIHATYJ5159-96-70 10:37:00 Test Item Value Reference Range Interpretation Comments MCH (test code = MCH) 23.8 pg 27.0-31.0 [facility] VgnglvgOQXNEPSYZJ4824-28-93 10:37:0031.3[facility] HermannHEMATOLOGY 2020-08-29 10:37:0018.2[facility] UatsojzKMOTUFCVRE7816-55-65 10:37:54549Kebpjoqg EdmbcauRPHGYRGGKN3883-48-48 10:37:007.5[facility] NpxgmsjRFNHYPCYUV0123-02-59 10:37:00 Test Item Value Reference Range Interpretation Comments PT (test code = PT) 12.8 s 12.0-14.7 [facility] ZqnljjqNHNRJQCKJN5511-70-99 10:37:00 Test Item Value Reference Range Interpretation Comments INR (test code = INR) 0.97 1 0.85-1.17 [facility] ChysihbDBYUPZSQSZ2005-00-27 10:37:00 Test Item Value Reference Range Interpretation Comments PTT (test code = PTT) 25.0 s 22.9-35.8 [facility] PoforqyTVUFUBLGKR2657-00-68 10:37:0070.5[facility] HermannHEMATOLOGY 2020-08-29 10:37:0018.8[facility] EiqnhupQXZWOBMESR2920-47-64 10:37:009.5[facility] ZhgncfyEULWVWIKLC8628-17-77 10:37:000.9[facility] EusjrfeBMIIMEQVQR2258-54-92 10:37:000.3[facility] PrtbmneMDOMMUVERQ6091-09-83 10:37:004.8[facility] JXWABXRJTA5206-21-58 10:37:001.3[facility] YflyugiAOTYCAMTGK4001-98-19 10:37:000.6 [facility] YlxkmelHKJKLRGXDI2066-91-85 10:37:000.1[facility] HermannHEMATOLOGY 2020-08-29 10:37:001+ *ABN*(08/29/20 5:37 AM)[facility] HknidthXXQAKVJWKI9376-96-21 10:37:00Not Detected (08/29/20 5:37 AM)[facility] HermannBLOOD BANK RESULTS 2020-08-29 10:37:00Negative (08/29/20 5:37 AM)[facility] HermannCHEM FZJIT3361-31-19 10:37:33864Lwmpmbby HermannCHEM WBTVI2813-50-05 10:37:0028[facility] HermannCHEM KYYOI2424-67-06 10:37:001.01[facility] HermannCHEM JHXDA3169-62-29 10:37:15085 [facility]annCHEM FCKWA8523-44-25 10:37:003.8[facility] HermannCHEM PANEL 2020-08-29 10:37:71461Slogzsya HermannCHEM VSNSC3219-55-50 10:37:0028[facility] HermannCHEM GRSAG5292-24-44 10:37:009.8[facility] HermannCHEM SSDNP3895-24-25 10:37:0011.8[facility] HermannCHEM PYEGG2725-76-38 10:37:0059[facility] HermannCHEM WAXTD8118-51-63 10:37:002.9[facility] ScqccivMUIUGWBHRA3623-94-32 10:37:006.8 [facility] QhpsujdCNMIBUOEIE9777-47-61 10:37:004.47[facility] HermannHEMATOLOGY 2020-08-29 10:37:0010.6[facility] DwrduktRBFITVLMYH2692-65-81 10:37:0034.0[facility] HvvteqrQPPNOCVLMT5512-28-13 10:37:0076.1[facility] MwotvdoNFLOJGYGZO3878-11-34 10:37:00 Test Item Value Reference Range Interpretation Comments MCH (test code = MCH) 23.8 pg 27.0-31.0 [facility] UxnlaelPWHAKYZSFN3578-13-86 10:37:0031.3[facility] HermannHEMATOLOGY 2020-08-29 10:37:0018.2[facility] BxkfjuqFOEXSHTRKP8306-43-34 10:37:81441Ajjnnamb RmqxnruFXDEOPYKVU1098-34-75 10:37:007.5[facility] XgwcypgNTFYOHAIGL9943-01-05 10:37:00 Test Item Value Reference Range Interpretation Comments PT (test code = PT) 12.8 s 12.0-14.7 [facility] RdzoiuuITRDCUENTX1382-29-22 10:37:00 Test Item Value Reference Range Interpretation Comments INR (test code = INR) 0.97 1 0.85-1.17 [facility] WdhofhvISSWBKNWIH2235-43-01 10:37:00 Test Item Value Reference Range Interpretation Comments PTT (test code = PTT) 25.0 s 22.9-35.8 [facility] QjtbylkENLLPZKAHF3796-37-85 10:37:0070.5[facility] HermannHEMATOLOGY 2020-08-29 10:37:0018.8[facility] ZlhubxgTZTMKOEHID4214-49-08 10:37:009.5[facility] GkyiqyqRWWTHHFSLU9195-12-31 10:37:000.9[facility] MphdhhuWZXQGEUZAX0266-78-32 10:37:000.3[facility] SwzjmacXLZXNJAXZI0193-57-73 10:37:004.8[facility] [place] JBFJAQUCLO5968-52-84 10:37:001.3[facility] NjmxktqHVLADEKMVZ4855-12-94 10:37:000.6 [facility] KzgshbkAUNLRDWWCD1261-82-41 10:37:000.1[facility] HermannHEMATOLOGY 2020-08-29 10:37:001+ *ABN*(08/29/20 5:37 AM)[facility] MelryreMXSUNJIJBS2879-19-24 10:37:00Not Detected (08/29/20 5:37 AM)[facility] HermannBLOOD BANK RESULTS 2020-08-29 10:37:00Negative (08/29/20 5:37 AM)[facility] HermannCHEM SKCEY3762-58-82 10:37:27586Fwvokxts HermannCHEM CQQTI9071-05-43 10:37:0028[facility] HermannCHEM DPKFR2115-67-29 10:37:001.01[facility] HermannCHEM LYZWQ9532-96-88 10:37:67731 [facility] HermannCHEM LCEDX9570-24-64 10:37:003.8[facility] HermannCHEM PANEL 2020-08-29 10:37:95912Hhrukxrs HermannCHEM PEGGZ7606-09-82 10:37:0028[facility] HermannCHEM KHHOI1159-95-04 10:37:009.8[facility] HermannCHEM PERJL9999-64-73 10:37:0011.8[facility] HermannCHEM OTRIP1736-13-45 10:37:0059[facility] HermannCHEM PLYQC0887-22-48 10:37:002.9[facility] XracpnrYRHIWVIWQH6637-07-11 10:37:006.8 [facility] RwivkuiRCCCDKYGNX4132-30-55 10:37:004.47[facility] HermannHEMATOLOGY 2020-08-29 10:37:0010.6[facility] SfaroioCJTMJRYBSH9610-88-80 10:37:0034.0[facility] KvhvvcqOSWBMKAHFZ1305-04-50 10:37:0076.1[facility] ZqbfeshMXHSUKUZQC9532-91-18 10:37:00 Test Item Value Reference Range Interpretation Comments MCH (test code = MCH) 23.8 pg 27.0-31.0 [facility] SzojdzvYCFDFNDCOG4519-57-95 10:37:0031.3[facility] HermannHEMATOLOGY 2020-08-29 10:37:0018.2[facility] OspatlaMPTHBBFSJG4829-15-32 10:37:12854Umjqalme UjdfzvcGNBOAFWFDD5284-77-12 10:37:007.5[facility] LjlqzekCFXWPSDOST7440-82-13 10:37:00 Test Item Value Reference Range Interpretation Comments PT (test code = PT) 12.8 s 12.0-14.7 [facility] KcqcicnWZCPZYVNUM4586-88-43 10:37:00 Test Item Value Reference Range Interpretation Comments INR (test code = INR) 0.97 1 0.85-1.17 [facility] FcmtqdgOEQAGZBVXD2399-60-74 10:37:00 Test Item Value Reference Range Interpretation Comments PTT (test code = PTT) 25.0 s 22.9-35.8 [facility] UqxpdvzZQZHBQCGHH7687-15-46 10:37:0070.5[facility] HermannHEMATOLOGY 2020-08-29 10:37:0018.8[facility] OcbvdwcINKFBUIGNX0440-29-31 10:37:009.5[facility] VjlufdkLEBJJZWBJZ6190-44-95 10:37:000.9[facility] NgbhazxPMDNBVHBVR0011-45-40 10:37:000.3[facility] RclgjipSHRPMGOVJM4075-01-45 10:37:004.8[facility] XMRZFWGRMZ2484-35-16 10:37:001.3[facility] TdrftjvQWKBELOBWS0233-10-24 10:37:000.6 [facility] ExvivvdWMEGFHFCOD7061-24-87 10:37:000.1[facility] HermannHEMATOLOGY 2020-08-29 10:37:001+ *ABN*(08/29/20 5:37 AM)[facility] OogfygbWIPLUZGIZZ7239-64-54 10:37:00Not Detected (08/29/20 5:37 AM)[facility] HermannBLOOD BANK RESULTS 2020-08-29 10:37:00Negative (08/29/20 5:37 AM)[facility]annCHEM ICBWR7249-90-67 10:37:74345Glgvyyji HermannCHEM VXEQT0890-16-59 10:37:0028[facility]annCHEM GZAZP0336-26-28 10:37:001.01[facility]annCHEM LBMJI3456-63-92 10:37:66413 [facility]annCHEM LLFQY6345-75-04 10:37:003.8[facility] HermannCHEM PANEL 2020-08-29 10:37:84082Hrptbepc HermannCHEM VJJTI2996-07-77 10:37:0028[facility]annCHEM JNWQH5447-51-99 10:37:009.8[facility] HermannCHEM SFJNN5894-06-94 10:37:0011.8[facility]annCHEM GLUAT2312-66-80 10:37:0059[facility]annCHEM HFUKK5121-85-57 10:37:002.9[facility] HwttiuiDDQCEVXUYS7980-43-79 10:37:006.8 [facility] ObazlqnLUPKMSDSBN1815-33-45 10:37:004.47[facility]annHEMATOLOGY 2020-08-29 10:37:0010.6[facility] SvrpiskXCJRLAIUXM7520-90-67 10:37:0034.0[facility] EdrkbawJXQGJLELQD5935-91-49 10:37:0076.1[facility] VhvwyrnEOXXFBZZLP1262-64-82 10:37:00 Test Item Value Reference Range Interpretation Comments MCH (test code = MCH) 23.8 pg 27.0-31.0 [facility] WsfiolzIORNWNLTTM1821-02-47 10:37:0031.3[facility]annHEMATOLOGY 2020-08-29 10:37:0018.2[facility] ThpvdzhZRYFLDITSU3798-71-03 10:37:77815Cxdynjdf ZatmfqkMVICHAOVWL9054-59-07 10:37:007.5[facility] YhleucvFXLUEZQOIJ3799-18-24 10:37:00 Test Item Value Reference Range Interpretation Comments PT (test code = PT) 12.8 s 12.0-14.7 [facility] TgqzmkmGIDIWPSTBE3376-99-16 10:37:00 Test Item Value Reference Range Interpretation Comments INR (test code = INR) 0.97 1 0.85-1.17 [facility] WsmdvweUTUQRTRCWW4215-65-99 10:37:00 Test Item Value Reference Range Interpretation Comments PTT (test code = PTT) 25.0 s 22.9-35.8 [facility] KkrtjgjYPCUZHOGKZ2064-75-96 10:37:0070.5[facility]annHEMATOLOGY 2020-08-29 10:37:0018.8[facility] DlbngwmZHREEJNZLB8159-00-89 10:37:009.5[facility] GscvnhoNUSHIQDAVH5534-67-23 10:37:000.9[facility] NgxhaszFFKAPHBQKB7316-92-98 10:37:000.3[facility] OtaxycfVYABMULJXS0483-58-47 10:37:004.8[facility] KSLSVBLUFF5728-33-59 10:37:001.3[facility] QfbapuvXUAXJOXRYT2990-22-97 10:37:000.6 [facility] LxmbkjmTRQTZEKLBG2927-96-20 10:37:000.1[facility]annHEMATOLOGY 2020-08-29 10:37:001+ *ABN*(08/29/20 5:37 AM)[facility] GgvtsukPNEBUVUERM4282-85-53 10:37:00Not Detected (08/29/20 5:37 AM)[facility]annBLOOD BANK RESULTS 2020-08-29 10:37:00Negative (08/29/20 5:37 AM)[facility] HermannCHEM JMZSO2630-75-27 10:37:51527Oacqslgd HermannCHEM GYFGH3754-10-68 10:37:0028[facility]annCHEM DWBBK7826-01-49 10:37:001.01[facility] HermannCHEM BYZFV7324-52-31 10:37:54021 [facility]annCHEM LUZAB2188-64-04 10:37:003.8[facility] HermannCHEM PANEL 2020-08-29 10:37:98208Rbqkygkk HermannCHEM OVSJW7566-54-63 10:37:0028[facility] HermannCHEM NNQMD0019-26-94 10:37:009.8[facility] HermannCHEM WXHVM5978-16-48 10:37:0011.8[facility] HermannCHEM KPXNS3812-51-20 10:37:0059[facility] HermannCHEM BLYBZ9603-65-58 10:37:002.9[facility] FkkaubpGTCESOVOXU2515-12-62 10:37:006.8 [facility] GzimpqpJHTYTNPKAB2895-03-89 10:37:004.47[facility]annHEMATOLOGY 2020-08-29 10:37:0010.6[facility] BkcncnvLPAZKAADOU4365-32-29 10:37:0034.0[facility] DwkzhzcLUTFUNCOFM1129-35-78 10:37:0076.1[facility] LrfpopkRYXSVTBQXC3127-57-82 10:37:00 Test Item Value Reference Range Interpretation Comments MCH (test code = MCH) 23.8 pg 27.0-31.0 [facility] JdcvetkKVDMVKTKIC1398-46-03 10:37:0031.3[facility]annHEMATOLOGY 2020-08-29 10:37:0018.2[facility] YpvfsrvHHQJYXPQNB0270-44-57 10:37:10780Ggsttbud SbbxolqQGPGYNCITX5918-54-87 10:37:007.5[facility] JwctxjvWFJMVPXZQO9251-41-36 10:37:00 Test Item Value Reference Range Interpretation Comments PT (test code = PT) 12.8 s 12.0-14.7 [facility] WoixqmxNNPGRMRIAF3810-04-13 10:37:00 Test Item Value Reference Range Interpretation Comments INR (test code = INR) 0.97 1 0.85-1.17 [facility] AatiovtYESOURLNUA6532-53-55 10:37:00 Test Item Value Reference Range Interpretation Comments PTT (test code = PTT) 25.0 s 22.9-35.8 [facility] AqtxssvAFLPOGBPMZ0562-09-97 10:37:0070.5[facility]annHEMATOLOGY 2020-08-29 10:37:0018.8[facility] PcmswyiPXYCQCSLTC4149-03-48 10:37:009.5[facility] AecudfrTRSIMTNTMN4873-66-19 10:37:000.9[facility] EawrdcwGHAFIBPGJR6475-80-93 10:37:000.3[facility] EeicevoWLJIUUBWYD6104-72-28 10:37:004.8[facility] Marty ORZSETCSHS4233-55-00 10:37:001.3[facility] QpynxdvQAKSRTHYLW5585-54-69 10:37:000.6 [facility] ByrcuxpWCURZTFHLB7653-28-41 10:37:000.1[facility]annHEMATOLOGY 2020-08-29 10:37:001+ *ABN*(08/29/20 5:37 AM)[facility] WhxbbnzLJKSMFHZKT3377-72-03 10:37:00Not Detected (08/29/20 5:37 AM)[facility]annBLOOD BANK RESULTS 2020-08-29 10:37:00Negative (08/29/20 5:37 AM)[facility] HermannCHEM QQGYX9118-47-65 10:37:74973Bxhvbyhk HermannCHEM CNJAJ0289-04-80 10:37:0028[facility] HermannCHEM XOTSD5476-39-58 10:37:001.01[facility] HermannCHEM JMRKX6481-29-17 10:37:16748 [facility]annCHEM OJEIF9271-49-60 10:37:003.8[facility] HermannCHEM PANEL 2020-08-29 10:37:93734Xdjmuggz HermannCHEM RAHXF4647-91-01 10:37:0028[facility] HermannCHEM DSTIF5051-69-17 10:37:009.8[facility] HermannCHEM SFOVK4570-23-19 10:37:0011.8[facility] HermannCHEM PSZMG1250-27-99 10:37:0059[facility] HermannCHEM ENQYJ2904-51-55 10:37:002.9[facility] AekcykuVJQETGUWBO6065-10-26 10:37:006.8 [facility] XtdnhzgPJJITLKYOT3567-06-52 10:37:004.47[facility]annHEMATOLOGY 2020-08-29 10:37:0010.6[facility] QojtfuvXBIJBKCPAN1257-20-46 10:37:0034.0[facility] SkriwkaOEBCXMWPVF1579-80-67 10:37:0076.1[facility] EazaliwOGCYUYXMNP0245-71-86 10:37:00 Test Item Value Reference Range Interpretation Comments MCH (test code = MCH) 23.8 pg 27.0-31.0 [facility] LbuuckfVHFMAGQBWH6030-92-61 10:37:0031.3[facility]annHEMATOLOGY 2020-08-29 10:37:0018.2[facility] BdilspnIWCEERRTCA2025-36-40 10:37:12649Ekzkvvmu GkeohixTNHSPBGGAY1865-03-94 10:37:007.5[facility] ZpeixqiIFPVEVIYNX5360-82-45 10:37:00 Test Item Value Reference Range Interpretation Comments PT (test code = PT) 12.8 s 12.0-14.7 [facility] HkoljesCDDGKEATKG8627-71-55 10:37:00 Test Item Value Reference Range Interpretation Comments INR (test code = INR) 0.97 1 0.85-1.17 [facility] KebseqiZHTSDUYAAZ7070-64-26 10:37:00 Test Item Value Reference Range Interpretation Comments PTT (test code = PTT) 25.0 s 22.9-35.8 [facility] JaieixgMCEWXVNMKM3452-99-64 10:37:0070.5[facility]annHEMATOLOGY 2020-08-29 10:37:0018.8[facility] InfvlamGIJUWFNQGE7781-90-00 10:37:009.5[facility] LlfpbsxTEVGOPJEFL6550-79-22 10:37:000.9[facility] LpipvjoATHOHVSHYH7160-04-07 10:37:000.3[facility] UrnoxquJHOXKKAWNU1549-22-45 10:37:004.8[facility] Marty BCJRGEGWHO6047-02-24 10:37:001.3[facility] PfjqvzcIWCBAYIBPO3149-59-93 10:37:000.6 [facility] PchhtqeGLHGUPGNLP4996-83-67 10:37:000.1[facility] HermannHEMATOLOGY 2020-08-29 10:37:001+ *ABN*(08/29/20 5:37 AM)[facility] PzlugtqOVJQBYXHMR7813-15-24 10:37:00Not Detected (08/29/20 5:37 AM)[facility] 2020-08-27 23:14:39PROCEDURE: NM [...] rate, with complete emptying by 4 hours. [facility]-[id number] Interface, Radiology Results - 08/27/2020 6:17 PM [...] rate, with complete emptying by 4 hours. [facility]-[id number] test 2020-05-09 21:24:58 Test Item Value Reference Range Interpretation Comments Misc test HIV-1 RNA QUAL PCR name (test code = 2566) Misc test see note Human Immunodef iciency result (test Virus 1 (HIV-1) by code = 1730) Qualitative Rechecker-M ediated Amplification ( TMA) [facility] test code 0203596 HIV-1 by Qualit ative TMA See Note SOURCE/SPECIMEN PLASMA HIV-1 RNA, QUAL ITATIVE TMA HIV-1 RNA, QL TMA T PRINTING FILM STRIPPER Test Not Performed. Initial testing necessi tated a repeat, but the re was insufficient sa mple to perform repeat. SAMPLE LEFT FOR REPEAT IS 50 uL. NEED 1000 u L TO RUN REPEAT. This te st was performed using the APTIMA(R) HIV-R NA Qualitative Ass ay (Gen-Probe). ======== ======== Te st performed by:[address] [place] [address] KYLE (test HIVQL - HIV-1 RNA, code = KYLE) Qualitative TMA (FROZEN)[facility] Test Code: 6371570Qiupzh: plasma [facility] duplex venous upper xuermwqnk5548-90-43 04:57:00 Vascular Ultrasound Laboratory Upper Extremity Venous Report [id number] [address] Pat.Name: LIO WATTS.ID: [id number] St.Date: 04/30/2020 Refer.MD: ELISEO ARCE MD Exam Time: 5:04:00 PM Study Type:UE Venous Age: 9 1955,65Y Sex: FEMALE Sonogrphr: IBIS Espinosa, SANKET Pat. Stat.:Inpatient Room: [place] [address] 2020 Tape Vol: EDGAR, CPT - 4: 24481 Echo Event ID:[id number] Order ID: [id number] Reason for Study:Arm swelling or pain, DVT [...] veins.*Preliminary result reported to ASHLEY Santos @ 8276 on 04/30/20.PHYSICIAN INTERPRETATION Venous examination of the both upper extremities and neck demonstratedno evidence of deep venous thrombosis. Total superficial vein thrombosis of the right basilic vein. FINDINGS: Signed 04/30/2020 10:57 PMFrancis Cabral MD, RPVIInterface, Radiology Results In - 04/30/2020 10:58 PM CST Vascular Ultrasound Laboratory Upper Extremity Venous Report [address] [place] [address] Pat.Name: LIO WATTS Pat.ID: [id number] St.Date: 04/30/2020 Refer.MD: ELISEO ARCE MD Exam Time: 5:04:00 PM Study Type:UE Venous Age: 9 1955,65Y Sex: FEMALE Sonogrphr: Dwayne Macias, RVChristian, RCS Pat. Stat.:Inpatient Room: [place] [address] 2020 Tape Vol: , CPT - 4: 21353 Echo Event ID:[id number] Order ID: [id number] Reason for Study:Arm swelling or pain, DVT [...] veins.*Preliminary result reported to ASHLEY Santos @ 6399 on 04/30/20.PHYSICIAN INTERPRETATION Venous examination of the both upper extremities and neck demonstratedno evidence of deep venous thrombosis. Total superficial vein thrombosis of the right basilic vein. FINDINGS: ------Signed 04/30/2020 10:57 PMFrancis Cabral MD, [facility]XR Chest 2 Ex1238-17-98 22:21:01EXAMINATION: XR CHEST 2 VW CLINICAL HISTORY: [...] cardiopulmonary process or active disease of the chest.[id number]elland HospitalMidline Unsuccessful Dykmzqj1802-32-99 17:14:34ANicole zhang RN 04/30/2020 11:25 AMMidline Unsuccessful [...] place a PIV g.20 in lower arm .[facility] Abdomen 1 Vw Laqyyvdi3227-12-25 16:20:14EXAMINATION: XR ABDOMEN 1 VW PORTABLE CLINICAL HISTORY: Abdominal pain post op COMPARISON: No prior IMPRESSION:1.Residual barium within the colon throughout. No small bowel obstruction noted. [facility]-2U [id number] Interface, Radiology Results Incoming - 04/30/2020 10:23 AM CST EXAMINATION: XR ABDOMEN 1 VW PORTABLECLINICAL HISTORY: Abdominalpain post opCOMPARISON: No priorIMPRESSION:1.Residual barium within the colon throughout. No smallbowel obstruction noted.[facility]-[id number] KjxeprahIfncpf1483-94-43 20:57:57Carlee Malloy MD 04/28/2020 2:59 PMAirwayPerformed by: Carlee Malloy MDAuthorized by: Carlee Malloy MD Location: ORUrgency: ElectiveDifficult Airway: No Anesthesiologist: Kvng Malloy MDResident/CHILDREN'S MINISTRY DIRECTOR/AA: Allan Morocho DOPerformed by: resident/CHILDREN'S MINISTRY DIRECTOR/AAPreoxygenated wsws485% O2: Yes C- spine Precautions Maintained Throughout: [...] No Number of Attempts at Approach: 1 [facility]ismCommunity Medical CenterTransthoracic Echocardiogram Complete, (w Contrast, Strain and 3D if needed)2020-04-28 00:20:00 Echocardiography Report [address] [place] [address] Pat.Name: LIO WATTS Marta.ID: [id number] .Date: 04/27/2020 Refer.MD: ELISEO ARCE MD Exam Time: 2:21:00 PM Study Type:Routine Echo Height: 64in Weight: 213lb BSA: 2.01 m2 Age: 9 1955,65Y Sex: FEMALE BP: 128/89 HR: 102 bpm Sonogrphr: SANKET Perkins Pat. Stat.:Inpatient Room: [facility] Study Status:Final Echo Event ID:[id number] Order ID: [id number] Reason for Study:Atrial FibrillationHistory / Clinical:Hypertension Procedures: [...] estimate PA systolic pressure. MEASUREMENTS: 2DParasternal Long [place] Ao An 2.2 cm LVPWd 1 cm [...] CI 3.1 l/m/m2 Signed 04/27/2020 06:20 CLIVEMomario Matrin MDInterface, Radiology Results In - 04/27/2020 6:21 PM CST Echocardiography Report [address] [facility], [facility] [address], [place] [address] Pat.Name: LIO WATTS.ID: [id number] .Date: 04/27/2020 Refer.MD: ELISEO ARCE MD Exam Time: 2:21:00 PM Study Type:Routine Echo Height: 64in Weight: 213lb BSA: 2.01 m2 Age: 9 1955,65Y Sex: FEMALE BP: 128/89 HR: 102 bpm Sonogrphr: Julieta Wills [facility] Pat. Stat.:Inpatient Room: [facility] Study Status:Final Echo Event ID:[id number] Order ID: [id number] Reason for Study:Atrial FibrillationHistory / Clinical:Hypertension Procedures: [...] PA systolic pressure.- MEASUREMENTS: ---- 2DParasternal Long [place] Ao An 2.2 cm LVPWd 1 cm [...] LVOT CI 3.1 l/m/m2 Signed 04/27/2020 06:20 PM[facility] Rosaurasandhills regional medical centerNicoThe [facility] Esophagram Double Cegpqdzn2152-23-04 18:07:12EXAMINATION: FL ESOPHAGRAM DOUBLE CONTRAST CLINICAL HISTORY: [...] herniaCOMPARISON: Limited comparison with chest CT from [facility]2019TECHNIQUE: Esophagram was performed with effervescent granules and barium.FLUOROSCOPIC TIME: 1.5 minutes.NUMBER OF IMAGES: 9 fluoroscopic images.IMPRESSION:No strictures. Normal esophageal mucosa.Nonspecific esophageal dysmotility, with mildly delayed esophageal emptying and scatterednonpropulsive tertiary contraction waves.There is a moderately sized type III hiatal hernia. There was mild spontaneous gastroesophageal reflux.[id number] HospitalCT [facility] Wo Contrast Abdomen Wo Contrast Pelvis Wo Fbuqkcpf0630-56-82 15:23:55EXAMINATION: CT CHEST WO CONTRAST ABDOMEN WO [...] chronic and incidental findings as detailed above. [facility]-[id number] Dictated and approved by radiology resi dent/fellow: Jenna Valenzuela M.D. I, Medhat Flowers Jr., M.D., personally reviewed the images and resident's/fellow's findings and agree with the final report.[facility], Radiology Results Incoming - 04/21/2020 9:27 [...] aorta.4.Additional chronic and incidental findings as detailed above.[facility]-[id number] and approved by president and chief executive officer/fellow: Jenna Valenzuela M.D.I, Medhat Flowers Jr., M.D., personally reviewed the images and resident's/fellow's findings and agree with the final report. [facility] HospitalDEX, SADIE, TV,PCR, IN [id number] 15:38:00 Test Item Value Reference Range Interpretation Comments FT (test code = CHTR) Not detected (qualifier Not Detected N value) FT (test code = Not detected (qualifier Not Detected N NGONO) value) FT (test code = TRVG) Not detected (qualifier Not Detected N value) URINALYSIS WITH [id number] 10:57:00 Test Item Value Reference Range Interpretation Comments Color (test code = UCOLR) Dk. Yellow Clarity (test code = UCLAR) Hazy Glucose (test code = UGLUC) NEGATIVE NEGATIVE N Bilirubin (test code = UBILI) NEGATIVE NEGATIVE N Ketones (test code = UKET) NEGATIVE NEGATIVE N Specific [place] (test code = 1.025 1.005-1.030 A USPGR) [...]
[2021-04-05] MEDS: LORAZEPAM 1 MG TABLET PO PRN (00:49)
[2021-04-05] MEDS: HYDROCODONE/APAP 5/325 MG TAB PO PRN (03:53)
[2021-04-05 06:03] LABS: Hematocrit 27.8 % (36.0-45.0); RBC Red Blood Cell Count 3.74 M/uL (3.86-4.86)
[2021-04-05] MEDS: METOPROLOL TAR 50 MG TAB PO SCH (06:06)
[2021-04-05 06:21] LABS: Magnesium 2.4 mg/dL (1.8-2.4)
[2021-04-05 08:15] VITALS: BP 185/81; TEMP 97
[2021-04-05] MEDS: TENOFOV ALAFENAM PO SCH (08:24)
[2021-04-05] MEDS: BUSPIRONE HCL 15 MG TABLET PO SCH (08:24)
[2021-04-05] MEDS: EMTRICITABINE PO SCH (08:24)
[2021-04-05] MEDS: ISENTRESS 400 MG PO SCH (08:25)
[2021-04-05] MEDS: PANTOPRAZOLE 40MG TABLET PO SCH (08:25)
[2021-04-05] MEDS: ALBUTEROL INHALER 60 PUFF/8 GM IH SCH (08:25)
[2021-04-05] MEDS: BUPROPION HCL XL 150 MG TAB PO SCH (08:25)
[2021-04-05] MEDS: AMIODARONE HCL 200 MG TAB PO SCH (08:26)
[2021-04-05] MEDS: HYDRALAZINE HCL 25 MG TABLET PO SCH (08:26)
[2021-04-05] MEDS: lisinopriL 20 MG TAB PO SCH (08:26)
[2021-04-05] MEDS: SERTRALINE HCL 100 MG TAB PO SCH (08:26)
[2021-04-05] MEDS: AMLODIPINE 10 MG TAB PO SCH (08:27)
--- NOTE | 2021-04-05 08:48 | P.DS ---
Admission Date: 04/04/21 Discharge Date: 04/05/21 Disposition: ID HOME/HOME HEALTH CARE Discharge Condition: GOOD Reason for Admission: Fall, Knee pain Consultations: Ortho - Dr. Garcia Procedures: CXR (04/03): FINDINGS: Inspiratory effort is very low and film technique significantly limits evaluation. No mass, consolidation or pulmonary contusion finding suspected. Cardiomediastinal silhouette matches comparison. No measurable pleural effusion and no pneumothorax. No acute bony abnormality seen. No acute aortic findings suspected. IMPRESSION: Significantly limited examination without acute cardiopulmonary finding. CT head/C-spine/chest/abdomen/pelvis (04/03): IMPRESSION: No hemorrhage, edema or acute intracranial finding. Patient has prominent for age chronic ischemic changes in the cerebral white matter. No clear change from prior imaging. Cervical spine degenerative changes match prior study. No acute cervical spine finding. No acute traumatic chest finding identifiable. Small nodular focus posterior left lower lobe is probably atelectasis. Infiltrate is possible but lesser in likelihood. Malignant mass is not suspected as this was not present on the 03/[address] Abdomen and Pelvis finding. Knee (04/03): IMPRESSION: No acute bone or joint finding. Soft tissue swelling anterior to the patella and patella tendon have improved slightly from March 31. Clinical concerns for internal derangement or occult bony injury could be further assessed with MR imaging. Wrist (04/03): IMPRESSION: Degenerative change and remote posttraumatic remodeling changes of the wrist joint. No fracture or acute finding identifiable. Wrist (04/03): IMPRESSION: No new fracture identified. Fracture fragments and surgical hardware are not clearly different from the intraoperative imaging. Problem list acute blood loss anemia with history of chronic anemia secondary to trauma / ecchymosis COPD on home O2, chronic CAD HTN Chronic atrial fibrillation on anticoagulation HIV Bipolar Hyperlipidemia Morbid obesity GERD Brief History of Present Illness: 66yo F, PMH: COPD on O2, CAD, HTN, chronic Afib on eliquis, recent R wrist fracture s/p repair. Presents to ED after fall at home overnight. Patient states she tripped over her oxygen tubing, causing her to fall to the floor. Patient received multiple pain medications in the ED and appears very sleepy, states she is having some hard time remembering all the details. She believes she fell on her left knee and tried to brace herself with her hands. She reports pain in bilateral wrists/hands, and left knee. When asked where her pain is, she states all over, unable to state if any particular area hurts more than the rest. She is asks for pain medication in between nodding off between sentences. CT trauma gram, multiple x-rays are all negative in the ED. Patient states she was unable to pick herself up from the floor and needed EMS assistance. She is concerned she cannot go home since she was unable to walk and the pain is so severe. ER nursing staff stated patient keeps asking for pain medication despite her resting comfortably/falling asleep. Hospital Course: Patient had gradual improvement with pain control. Her hemoglobin slightly decreased and she was given a unit of blood with appropriate response. Her anticoagulation was held during her hospitalization and her hemoglobin remained stable. Her pain and ecchymosis improved. She was evaluated by ortho who recommended a platform walker if needed. Patient stated she would have her family look into getting one. She did have some erythema noted on her left forearm that slightly increased on day of discharge. There was no additional warmth, no drainage, no evidence of infection. She was afebrile and without leukocytosis. She had a small laceration on the other side of her arm. She was prescribed antibiotics as precaution for cellulitis. Patient was advised multiple times that she would benefit from SNF since she has fallen multiple times. She adamantly refused. Vital Signs/Physical Exam: Physical exam General: Oriented x3, NAD HEENT: Sclerae nonicteric, normal conjunctiva Respiratory: Diminished (bilaterally at bases), nonlabored on 3L NC Cardiovascular: Irregular heart rate/rhythm Gastrointestinal: Soft and benign, Non-distended, No tenderness Musculoskeletal: Tenderness (b/l knees, L wrist, L lateral hip) Integumentary: large ecchymosis from mid thigh to lower leg on left, few smaller scattered ecchymosis throughout body. Neurological: Normal strength at 5/5 x4 extr, Cranial nerves 3-12 intact, normal speech Temp Pulse Resp BP Pulse Ox 97.0 F 63 18 185/81 H 97 04/05/21 08:00 04/05/21 08:00 04/05/21 08:00 04/05/21 08:00 04/05/21 08:00 Laboratory Data at Discharge: WBC 6.60 K/uL (4.3-10.9) D 04/05/21 05:54 Hgb 8.4 g/dL (12.0-15.0) L 04/05/21 05:54 Hct 27.8 % (36.0-45.0) L 04/05/21 05:54 Plt Count 183 K/uL (152-406) 04/05/21 05:54 PT 12.6 SECONDS (9.5-12.5) H 04/03/21 05:00 INR 1.09 04/03/21 05:00 Sodium 146 mmol/L (136-145) H 04/05/21 05:54 Potassium 4.0 mmol/L (3.5-5.1) 04/05/21 05:54 BUN 21 mg/dL (7-18) H 04/05/21 05:54 Creatinine 0.99 mg/dL (0.55-1.3) 04/05/21 05:54 Glucose 183 mg/dL (74-106) H 04/05/21 05:54 Magnesium 2.4 mg/dL (1.8-2.4) 04/05/21 05:54 Total Bilirubin 0.6 mg/dL (0.2-1.0) 04/04/21 08:25 AST 26 U/L (15-37) 04/04/21 08:25 ALT 29 U/L (12-78) 04/04/21 08:25 Alkaline Phosphatase 51 U/L (45-117) 04/04/21 08:25 Home Medications: Raltegravir Potassium [Isentress] 1 tab PO BID 02/28/12 Sertraline [Zoloft*] 2 tab PO DAILY 09/15/12 Metoprolol Tartrate 100 mg PO BID #60 tablet 02/03/20 Apixaban [Eliquis] 1 tab PO BID 07/30/20 Lisinopril [Zestril] 1 tab PO BID 07/30/20 Emtricitabine/Tenofov Alafenam [Descovy 200-25 mg Tablet] 1 tab PO DAILY 03/05/21 Hydralazine HCl 50 mg PO TID 03/05/21 Amlodipine Besylate 1 tab PO DAILY 03/30/21 Buspirone HCl 30 mg PO BID 03/30/21 Dexlansoprazole [Dexilant] 60 mg PO DAILY 03/30/21 Docusate/Senna [Senokot-S*] 1 tab PO DAILY 03/30/21 Albuterol Inhaler [Ventolin Inhaler*] 2 puff IH BID 03/31/21 LORazepam [Lorazepam] 1 tab PO BID 03/31/21 Amiodarone HCl [Cordarone*] 1 tab PO DAILY 04/03/21 buPROPion HCL [Bupropion Xl] 1 tab PO DAILY 04/03/21 Hydrocodone 5/APAP 325 [[place] 5/325*] 1 tab PO Q8H PRN 5 Days #15 tab 04/05/21 cephALEXin [Cephalexin] 500 mg PO Q6HR 7 Days #28 capsule 04/05/21 New Medications: cephALEXin [Cephalexin] 500 mg PO Q6HR 7 Days #28 capsule Hydrocodone 5/APAP 325 [[place] 5/325*] 1 tab PO Q8H PRN 5 Days #15 tab PRN Reason: Pain Scale 5-7 (Moderate) Physician Discharge Instructions: x-rays of both wrists/arms, knees, and CT scan did not reveal any new fractures. Your hemoglobin was slightly lower, due to the large bruising on your left leg and multiple smaller bruises. You did require 1 unit of blood and it was stable afterwards. Recommend restarting your blood thinner medication (Eliquis) on 04/08. Follow up with your PCP in 3-5 days. Time spent managing pt's care (in minutes): 45
[2021-04-05] MEDS ORDERED: BUPROPION HCL XL 150 MG TAB PO SCH (09:00)
--- NOTE | 2021-04-05 09:19 | CON ---
Date of Consultation: 04/04/2021 History Of Present Illness: I am seeing this patient today. I saw her recently for open reduction a nd internal fixation of right distal radius fracture with open carpal tunnel release. She apparently went home and fell injuring her left knee as well as her left wrist. She was seen and examined in [facility] emergency department where x-rays were taken and no new fracture or changes from postoperative x-r ay for the right wrist were identified. However, the patient was admitted to the hospital because barbara raya said it was very difficult for her to walk. Physical Examination: She does have some bruising associated with the left knee as well as a fairly significant amount of s uperficial swelling. She can perform a strong straight leg raise. She is neurovascularly intact. W ith regard to her left wrist, she does have some pain with palpation as well as some swelling of the wrist, however, is neurovascularly intact and can move her wrist and hand easily, though she does com plain of pain. With regard to her right wrist, she is now neurovascularly intact. Her splint is ronny an, dry, and intact. Assessment: This is a patient who recently underwent a right wrist surgery. Unfortunately, she sust ained a fall, limiting her mobility. I think that she can be weightbearing as tolerated with a platf orm walker and if she does not need a walker for balance, could use a crutch. Otherwise, I think we can see her back in routine followup. BRE Voice ID: [id number] Report ID: [id number]
== END 2021-04-05 10:00 | disposition home health service (06) | DRG 605 ==
LOC: ER 04:20 → ERHOLD 09:18 → 2ND 10:51 → OBSVTOIN 04-04 14:43
PROVIDERS: ADMIT Hospitalist; ATTEND Hospitalist
PROC: 30233N1 Transfusion of Nonautologous Red Blood Cells into Peripheral Vein, Percutaneous Approach (ICD-10-PCS; principal; 2021-04-04)
DX: S80.02XA Contusion of left knee, initial encounter (principal); I48.20 Chronic atrial fibrillation, unspecified; D62 Acute posthemorrhagic anemia; M25.531 Pain in right wrist; M25.532 Pain in left wrist; I10 Essential (primary) hypertension; D63.1 Anemia in chronic kidney disease; G89.29 Other chronic pain; I25.10 Atherosclerotic heart disease of native coronary artery without angina pectoris; E78.5 Hyperlipidemia, unspecified; F31.9 Bipolar disorder, unspecified; J44.9 Chronic obstructive pulmonary disease, unspecified; L53.9 Erythematous condition, unspecified; S41.119A Laceration without foreign body of unspecified upper arm, initial encounter; E66.01 Morbid (severe) obesity due to excess calories; W01.0XXA Fall on same level from slipping, tripping and stumbling without subsequent striking against object, initial encounter; Z91.81 History of falling; Z68.38 Body mass index [BMI] 38.0-38.9, adult; Z88.1 Allergy status to other antibiotic agents; Z88.5 Allergy status to narcotic agent; Z88.8 Allergy status to other drugs, medicaments and biological substances; Z21 Asymptomatic human immunodeficiency virus [HIV] infection status; Z79.01 Long term (current) use of anticoagulants; Z87.891 Personal history of nicotine dependence; Z79.52 Long term (current) use of systemic steroids; Z79.82 Long term (current) use of aspirin; Z90.49 Acquired absence of other specified parts of digestive tract; Z96.612 Presence of left artificial shoulder joint; Z96.611 Presence of right artificial shoulder joint; Z99.81 Dependence on supplemental oxygen; Z66 Do not resuscitate; Z20.822 Contact with and (suspected) exposure to COVID-19
CPT/HCPCS: 36415; 36430; 70450; 71045; 71250; 72125; 80048; 80053; 80076; 81003; 81015; 83735; 83880; 84484; 85025; 85027; 85610; 86850; 86900; 86901; 87086; 87088; 93005; 94760; 96361; 96374; 96375; 97116; 97161; 99285; G0378; J0690; J1100; J1170; J2250; J2405; J2704; J7030; J7040; J7050; J7120; P9016; U0003

== ENCOUNTER 2021-04-06 01:11 | Inpatient (IN) | payer OTHER ==
--- OUTSIDE RECORDS SUMMARY | 2021-04-06 01:24 | XMS REPORT | Continuity of Care Document ---
:1955 Author Organization [facility] t Address [address] [place] [address] Care Team Providers Name Role Phone MURPHY Primary Care Physician Unavailable HEMATPOUR Attending Clinician Unavailable SELF Attending Clinician Unavailable Ronald DHILLON Attending Clinician Prabhu SANCHEZ Attending Clinician Unavailable Shelia JENKINS, H Attending Clinician Tiny SALGUERO Attending Clinician Lab, Fam Pob I Attending Clinician Unavailable Doctor Unassigned, Name Attending Clinician Unavailable Carol Ann IZQUIERDO M. Attending Clinician Yazmin JENKINS Attending Clinician [facility] Attending Clinician Unavailable Devin SALGUERO R [...] Number Effective Date Expiration Date Christian lloyd [facility] [id number] 2012 STAR PLUS 00:00:00 [employer] [id number] 2019 BEHAVIORAL 00:00:00 SOLUTIONS MEDICAID OF [place] [id number] 2020 00:00:00 Problems Condition Condition Condition Status Onset Resolution Last Treating Co mments Source Name Details Category Date Date Treatment Clinician Date Gastropare Gastropare Disease Active Overview : Methodi sis sis 4-[address] [facility] note l might be different from the original. Added automatic ally from request for surgery [id number] Dysphagia Dysphagia Disease Active Overview: Methodi 4[facility] 00:00: [facility] 00 note l might be different from the original. Added automatic ally from request for surgery [id number] CCL / EPS Diagnosis Active 2020-10-15 Memoria PVI 3-30 17:07:00 l ABLATION CCL / 00:00: [place] W/ CARTO / EPS PVI 00 GA / T ABLATION W/ CARTO / GA / T Active 08/19/2020 [facility] Food Food Disease Active 2019-05 [...] hepatitis 11-18 ity of C C 00:00: [facility] Hypertensi Hypertensi Disease Active U [...] Date Stop Date Source Natural father Diabetes [facility] Natural father Other - see comments [facility] Natural father Coronary Heart [facility] Natural mother Cancer [facility] Social History Social Habit Start Date Stop Date Quantity Comments Source [facility] Alcohol Std Drinks [facility] Alcohol Binge Exposure to Not sure [facility] SARS-CoV-2 (event) History of tobacco Smoker [...] 00:00:00 00:00:00 Alcohol Comment 2016-09-23 2016-09-23 [facility] Tobacco Comment 2015-02-14 2015-02-14 Smokes approx 1-2 Un iversity of 00:00:00 00:00:00 cigarettes per [place] [facility] day when she Branch smokes Sex Ass[birth year] At [birth year] [facility] 00:[facility]:00 00:00:00 Smoking Status Start Date Stop Date Source Former smoker 2020-10-31 00:00:00 2020-10-31 [facility]:00 [facility] [place] [facility] Medications Ordered Filled Start Stop Current Ordering Indication Dosage Frequency Signature Comments Components Source Medication Medication Date Date Medication? Clinician (SIG) Name Name LORazepam 2 2020-05 Yes [id number] 2mg Take 1 Univers mg tablet 1-03 tablet by ity o f 00:00: mouth 2 [place] 00 (two) Medical times Branch daily as needed (anxiety). raltegravir Yes [id number] 400mg Take 1 Univers (ISENTRESS) 9-24 tablet by ity of 400 mg 00:00: mouth 2 [place] tablet 00 (two) Medical times Branch daily. buPROPion Yes [id number] 150mg Take 1 U nivers XL 9-08 tablet by ity of (WELLBUTRIN 00:00: mouth [place] XL) 150 mg 00 daily. Medical 24 hr Branch tablet SERTraline Yes [id number] 200mg Take 2 [facility] 100 mg 9-08 tablets by ity of tablet 00:00: mouth [place] 00 daily. Medical Branch busPIRone Yes [id number] 30mg Take 1 Un matt 30 mg 8-30 tablet by ity of tablet 00:00: mouth 2 [place] 00 (two) Medical times Branch daily. LORazepam 2 2020- No [id number] 2mg Take 1 Univers mg tablet 8-30 11-03 tablet by ity of 00:00: 00:00 mouth 2 [place] 00 :00 (two) Medical times Branch daily as needed (anxiety). metoprolol 2021- No [id number] Take 1 [facility] tartrate 7-26 01-23 tablet [...] area in groin) hydrALAZINE 2020-0 Yes 50mg Q.[id number] Take 50 mg Methodi (APRESOLINE 7-[id number] mouth [address] ) 50 MG [...] Hospita tablet 25 daily. l nystatin-tr Yes [id number] Apply to [facility] iamcinolone 11-25 area(s) 3 ity of cream 00:00: (three) [place] 00 times Medical daily. Branch emtricitabi Yes [id number] Take one [facility] ne-tenofovi 11-25 po daily ity of r alafen 00:00: [place] (DESCOVY) 00 Medical tablet Branch budesonide- 2020- No 1{puff} QD Inhale 1 Methodi formoteroL 6-25 06-[address] (SYMBICORT) 19:37: 00:00 morning. H ospita 160-4.5 02 :00 l mcg/actuati on inhaler hydrALAZINE 2020- No [id number] 50mg Q.[id number] Take 1 [facility] (Apresoline 6-11 09-10 [id number] tablet (50 Health ) 50 MG 00:00: 04:59 3D mg total) tablet 00 :00 by mouth 3 (three) times a day. hydrALAZINE 2020- No [id number] 50mg Q.[id number] Take 1 [facility] (Apresoline 10-31 [id number] tablet (50 Health ) 50 MG 00:00: 04:59 3D mg total) tablet 00 :00 by mouth 3 (three) times a day. hydrALAZINE 2020- No [id number] 50mg Q.[id number] Take 1 [facility] (Apresoline 10-31 [id number] tablet (50 Health ) 50 MG 00:00: 04:59 3D mg total) tablet 00 :00 by mouth 3 (three) times a day. hydrALAZINE 2020- No [id number] 50mg Q.[id number] Take 1 [facility] (Apresoline 10-31 [id number] tablet (50 Health ) 50 MG 00:00: [...] % 00:00: ointment 00 nystatin 2020- No [id number] Q.25D Take 5 mL [facility] (MYCOSTATIN 10-06 [...] times a day for 10 days. clobetasol Yes 1{appli Q12H Apply 1 U [...] 5-14 Health MG tablet 00:00: 00 clobetasol 0 Yes 1{appli Q12H Apply 1 U T [...] ia 4-10 (Same as: l 14:00: Norvasc) [place] 00 emtricitabi No Notes: Caesar lisa ne 200 MG / 4-10 (Same as: l tenofovir 14:00: Descovy) Herm ariel alafenamide 00 Non-formul 25 MG Oral nancy Tablet [Descovy] pantoprazol No Notes: Caesar lisa e 4-10 Tablet l 14:00: should not Marty 00 be chewed or crushed. (Same as: Protonix) Amiodarone No Notes: Memor ia 4-10 (Same as: l 14:00: Cordarone) [place] 00 Amlodipine No Notes: Memor ia 4-10 (Same as: l 14:00: Norvasc) [place] emtricitabi No Notes: Caesar lisa ne 200 [...] e 4-10 Tablet l 14:00: should not [place] 00 be chewed or crushed. (Same as: [...] ia 4-10 (Same as: l 14:00: Cordarone) [place] Amlodipine No Notes: Memor ia 4-10 (Same [...] ia 4-10 (Same as: l 14:00: Cordarone) [place] Amlodipine No Notes: Memor ia 4-10 (Same as: l 14:00: Norvasc) [place] emtricitabi No Notes: Caesar lisa ne 200 MG / 4-10 (Same as: l tenofovir 14:00: Descovy) Herm ariel alafenamide 00 Non-formul 25 MG Oral nancy Tablet [Descovy] Sertraline No Notes: Memor ia 4-10 (Same as: l 14:00: Zoloft) [place] 00 pantoprazol No Notes: Caesar lisa e 4-10 Tablet l 14:00: should not [place] 00 be chewed or crushed. (Same as: Protonix) Amiodarone No Notes: Memor ia 4-10 (Same as: l 14:00: Cordarone) [place] 00 Amlodipine No Notes: Memor ia 4-10 (Same as: l 14:00: Norvasc) [place] 00 emtricitabi No Notes: Caesar lisa ne 200 MG / 4-10 (Same as: l tenofovir 14:00: Descovy) Herm ariel alafenamide 00 Non-formul 25 MG Oral nancy Tablet [Descovy] Sertraline No Notes: Memor ia 4-10 (Same as: l 14:00: Zoloft) [place] 00 pantoprazol No Notes: Caesar lisa e 4-10 Tablet l 14:00: should not [place] 00 be chewed or crushed. (Same as: [...] M emoria 4-10 interfere l 02:00: w/enteral [place] 00 feeds - Take 1 hr before or 2 hr after antacids, dairy pdt, meals & minerals - On empty stomach. For patients unable to swallow tablet, dissolve in 10mL - 30mL of water or juice and stir before giving. (Same As: Carafate) Saline No Notes: Memoria Flush 0.9% 4-10 (Same as: l 02:00: BD [place] 00 Posiflush) Eliquis No Notes: Memoria 4-10 Same as: l 02:00: Eliquis [place] Hydralazine No Notes: Caesar lisa Hydrochlori 4-10 [...] 0.9% 4-10 (Same as: l 02:00: BD [place] 00 Posiflush) Eliquis No Notes: Memoria 4-10 Same as: l 02:00: Eliquis [place] 00 Hydralazine No Notes: Caesar lisa Hydrochlori [...] 0.9% 4-10 (Same as: l 02:00: BD [place] Posiflush) Eliquis No Notes: Memoria 4-10 Same as: l 02:00: Eliquis [place] 00 Hydralazine No Notes: Caesar lisa Hydrochlori 4-10 (Same as: l de 50 MG 02:00: Apresoline Her mitchell Oral Tablet 00 ) May interfere w/enteral feedings Take With Food Sucralfate No Notes: May M emoria 4-10 interfere l 02:00: w/enteral [place] 00 feeds - Take 1 hr before or 2 hr after antacids, dairy pdt, meals & minerals - On empty stomach. For patients unable to swallow tablet, dissolve in 10mL - 30mL of water or juice and stir before giving. (Same As: Carafate) Saline No Notes: Memoria Flush 0.9% 4-10 (Same as: l 02:00: BD [place] 00 Posiflush) Eliquis No Notes: Memoria 4-10 Same as: l 02:00: Eliquis [place] Hydralazine No Notes: Caesar lisa Hydrochlori 4-10 (Same as: l de 50 MG 02:00: Apresoline Her mitchell Oral Tablet 00 ) May interfere w/enteral feedings Take With Food Sucralfate No Notes: May M emoria 4-10 interfere l 02:00: w/enteral [place] 00 feeds - Take 1 hr before [...] l de 50 MG 02:00: Apresoline Her micthell Oral Tablet 00 ) May interfere w/enteral [...] not exceed l #3 00:12: 4gm/day of [place] acetaminop hen. (Same as: Tylenol with Codeine # 3) acetaminoph No Notes: Do M emoria en-codeine 4-10 not exceed l #3 00:12: 4gm/day of [place] acetaminop hen. (Same as: Tylenol with Codeine # 3) acetaminoph No Notes: Do M emoria en-codeine 4-10 not exceed l #3 00:12: 4gm/day of [place] acetaminop hen. (Same as: Tylenol with Codeine [...] tartrate 4-09 tab, l 22:00: Route: PO, [place] 00 Drug form: TAB, BID, Dosing Weight [...] oria 4-09 tab, l 22:00: Route: PO, [place] 00 Drug form: TAB, BID, Dosing Weight 97.273, kg, Start date: 08/29/20 17:00:00 CDT, Duration: 30 day, Stop date: 09/28/20 9:00:00 CDT metoprolol 2021-0 No 100 mg, 1 Me moria tartrate 4-09 tab, l 22:00: Route: PO, [place] 00 Drug form: TAB, BID, Dosing Weight [...] tartrate 4-09 tab, l 22:00: Route: PO, [place] 00 Drug form: TAB, BID, Dosing Weight 97.273, kg, Start date: 08/29/20 17:00:00 CDT, Duration: 30 day, Stop date: 09/28/20 9:00:00 CDT Raltegravir 2021-0 No 400 mg, 1 M emoria 400 MG Oral 4-09 tab, l Tablet 22:00: Route: PO, Syklar nn [ISENTRESS] Drug form: TAB, BID, Dosing Weight 97.273, kg, Start date: 08/29/20 17:00:00 CDT, Duration: 30 day, Stop date: 09/28/20 9:00:00 CDT, 0 Buspirone 2020-0 No Notes: Memori a 08-29 (Same As: l 22:00: BuSpar) Lisinopril 2020-0 No 40 mg, 1 Mem oria 4-09 tab, l 22:00: Route: PO, [place] Drug form: TAB, BID, Dosing Weight 97.273, kg, Start date: 08/29/20 17:00:00 CDT, Duration: 30 day, Stop date: 09/28/20 9:00:00 CDT metoprolol 2020-0 No 100 mg, 1 Me moria tartrate 4-09 tab, l 22:00: Route: PO, [place] 00 Drug form: TAB, BID, Dosing Weight [...] tartrate 4-09 tab, l 22:00: Route: PO, [place] Drug form: TAB, BID, Dosing Weight 97.273, [...] Notes: Memoria 4-09 (Same l 17:07: as:MORPhin [place] 00 e Sulfate) Morphine No Notes: Memoria 4-09 (Same l 17:07: as:MORPhin [place] 00 e Sulfate) Morphine No Notes: Memoria 4-09 (Same l 17:07: as:MORPhin [place] 00 e Sulfate) Morphine No Notes: Memoria 4-09 (Same l 17:07: as:MORPhin [place] 00 e Sulfate) Morphine No Notes: Memoria 4-09 (Same l 17:07: as:MORPhin [place] 00 e Sulfate) Morphine No Notes: Memoria 4-09 (Same l 17:07: as:MORPhin [place] 00 e Sulfate) buPROPion No 150 mg, [...] tab, PO, l oral 15:27: Daily, # [place] enteric 00 30 tab, 0 coated Refill(s), tablet Pharmacy: [facility] 149, 162.56, cm, 08/29/20 5:30:00 CDT, Height, 97.273, kg, 08/29/20 5:30:00 CDT, Weight pantoprazol 2021-0 Yes 40 mg = 1 M emoria e 40 mg 4-09 tab, PO, l oral 15:27: Daily, # [place] enteric 00 30 tab, 0 coated Refill(s), tablet Pharmacy: [facility] 149, 162.56, cm, 08/29/20 5:30:00 CDT, Height, 97.273, kg, 08/29/20 5:30:00 CDT, Weight pantoprazol 2021-0 Yes 40 mg = 1 M emoria e 40 mg 4-09 tab, PO, l oral 15:27: Daily, # [place] enteric 00 30 tab, 0 coated Refill(s), tablet Pharmacy: [facility] 149, 162.56, cm, 08/29/20 5:30:00 CDT, Height, 97.273, kg, 08/29/20 5:30:00 CDT, Weight pantoprazol 2021-0 Yes 40 mg = 1 M emoria e 40 mg 4-09 tab, PO, l oral 15:27: Daily, # [place] enteric 00 30 tab, 0 coated Refill(s), tablet Pharmacy: [facility] 149, 162.56, cm, 08/29/20 5:30:00 CDT, Height, 97.273, kg, 08/29/20 5:30:00 CDT, Weight pantoprazol 2021-0 Yes 40 mg = 1 M emoria e 40 mg 4-09 tab, PO, l oral 15:27: Daily, # Marty enteric 00 30 tab, 0 coated Refill(s), tablet Pharmacy: [facility] 149, 162.56, cm, 08/29/20 5:30:00 CDT, Height, 97.273, kg, 08/29/20 5:30:00 CDT, Weight pantoprazol 2021-0 Yes 40 mg = 1 M emoria e 40 mg 4-09 tab, PO, l oral 15:27: Daily, # [place] enteric 00 30 tab, 0 coated Refill(s), tablet Pharmacy: [facility] 149, 162.56, cm, 08/29/20 5:30:00 CDT, Height, 97.273, kg, 08/29/20 5:30:00 CDT, Weight pantoprazol 2020-0 Yes 40 mg = 1 M emoria e 40 mg 4-09 tab, PO, l oral 15:27: Daily, # [place] enteric 00 30 tab, 0 coated Refill(s), tablet Pharmacy: [facility] 149, 162.56, cm, 08/29/20 5:30:00 CDT, Height, 97.273, kg, 08/29/20 5:30:00 CDT, Weight pantoprazol 2020-0 No 40 mg = 1 M emoria e 40 mg 4-09 tab, PO, l oral 15:26: Daily, # [place] enteric 00 30 tab, 0 coated Refill(s) tablet sucralfate 2020-0 Yes 1 gm = 1 Mem oria 1 g oral 4-09 tab, PO, l tablet 15:26: Q12H, # 28 Skylar nn 00 tab, 0 Refill(s), Pharmacy: [place] [id number], 162.56, cm, 08/29/20 5:30:00 CDT, Height, 97.273, kg, 08/29/20 5:30:00 CDT, Weight pantoprazol 2020-0 No 40 mg = 1 M emoria e 40 mg 4-09 tab, PO, l oral 15:26: Daily, # [place] enteric 00 30 tab, 0 coated Refill(s) tablet sucralfate 2020-0 Yes 1 gm = 1 Mem oria 1 g oral 4-09 tab, PO, l tablet 15:26: Q12H, # 28 Sk[place] nn 00 tab, 0 Refill(s), Pharmacy: [place] [address], 162.56, cm, 08/29/20 5:30:00 CDT, Height, 97.273, [...] Skylar nn 00 tab, 0 Refill(s), Pharmacy: [facility] 149, 162.56, cm, 08/29/20 5:30:00 CDT, Height, 97.273, kg, 08/29/20 5:30:00 CDT, Weight pantoprazol 2020-0 No 40 mg = 1 M emoria e 40 mg 4-09 tab, PO, l oral 15:26: Daily, # [place] enteric 00 30 tab, 0 coated Refill(s) tablet sucralfate 2020-0 Yes 1 gm = 1 Mem oria 1 g oral 4-09 tab, PO, l tablet 15:26: Q12H, # 28 [place] nn 00 tab, 0 Refill(s), Pharmacy: [place] [address], 162.56, cm, 08/29/20 5:30:00 CDT, Height, 97.273, [...] Skyl[place] nn 00 tab, 0 Refill(s), Pharmacy: [facility] 149, 162.56, cm, 08/29/20 5:30:00 CDT, Height, 97.273, kg, 08/29/20 5:30:00 CDT, Weight pantoprazol 2020-0 No 40 mg = 1 M emoria e 40 mg 4-09 tab, PO, l oral 15:26: Daily, # [place] enteric 00 30 tab, 0 coated Refill(s) tablet sucralfate 2020-0 Yes 1 gm = 1 Mem oria 1 g oral 4-09 tab, PO, l tablet 15:26: Q12H, # 28 [place] nn 00 tab, 0 Refill(s), Pharmacy: [facility] 149, 162.56, cm, 08/29/20 5:30:00 [...] Skyl[place] nn 00 tab, 0 Refill(s), Pharmacy: [facility] 149, 162.56, cm, 08/29/20 5:30:00 CDT, Height, 97.273, kg, 08/29/20 5:30:00 CDT, Weight Saline No Notes: Memoria Flush 0.9% 4-09 (Same as: l 15:25: BD [place] 00 Posiflush) Lorazepam No Notes: Memori a 4-09 (Same as: l 15:25: Ativan) Saline No Notes: Memoria Flush 0.9% 4-09 (Same as: l 15:25: BD [place] 00 Posiflush) Lorazepam No Notes: Memori a 4-09 (Same as: l 15:25: Ativan) Saline No Notes: Memoria Flush 0.9% 4-09 (Same as: l 15:25: BD Marty 00 Posiflush) Saline No Notes: Memoria Flush 0.9% 4-09 (Same as: l 15:25: BD [place] 00 Posiflush) Lorazepam No Notes: Memori a 4-09 (Same as: l 15:25: Ativan) Lorazepam No Notes: Memori a 4-09 (Same as: l 15:25: Ativan) [place] 00 Saline No Notes: Memoria Flush 0.9% 4-09 (Same as: l 15:25: BD [place] 00 Posiflush) Lorazepam No Notes: Memori a 4-09 (Same as: l 15:25: Ativan) [place] Saline No Notes: Memoria Flush 0.9% - [...] Drug form: l mg + 15:00: INJ, [place] 00 Dosing Weight 97.3, kg, Start date: [...] oria ne 08-29 Route: l 14:01: IVP, [place] 00 Q5Min, Dosing Weight 97.273, kg, PRN [...] Memori a 08-29 Route: l 14:01: IVP, [place] 00 Q2MIN, Dosing Weight 97.273, kg, PRN [...] 08-29 Route: PO, l 14:01: Drug form: [place] 00 TAB, ONCE, Dosing Weight 97.273, kg, [...] lisa 08-29 Route: l 14:01: IVP, PRN, [place] 00 Dosing Weight 97.273, kg, PRN Benzodiaze pine Reversal, Initial dose, Start date: 08/29/20 9:01:00 CDT, Duration: 30 day, Stop date: 09/28/20 9:00:00 CDT Naloxone 2020-0 No 0.4 mg, Memori a 08-29 Route: l 14:01: IVP, [place] 00 Q2MIN, Dosing Weight 97.273, kg, PRN [...] 08-29 Route: PO, l 14:01: Drug form: [place] 00 TAB, ONCE, Dosing Weight 97.273, kg, [...] lisa 08-29 Route: l 14:01: IVP, PRN, [place] 00 Dosing Weight 97.273, kg, PRN Benzodiaze pine Reversal, Initial dose, Start date: 08/29/20 9:01:00 CDT, Duration: 30 day, Stop date: 09/28/20 9:00:00 CDT Naloxone 1-0 No 0.4 mg, Memori a 08-29 Route: l 14:01: IVP, [place] 00 Q2MIN, Dosing Weight 97.273, kg, PRN [...] Memori a 08-29 Route: l 14:01: IVP, [place] 00 Q2MIN, Dosing Weight 97.273, kg, PRN Narcotic Reversal, Start date: 08/29/20 9:01:00 CDT, Duration: 8 doses or times, Stop date: Limited # of times Ondansetron 2021-0 No 4 mg, Memor ia 08-29 Route: l 14:01: IVP, ONCE, [place] 00 Dosing Weight 97.273, kg, PRN Nausea [...] oria ne 08-29 Route: l 14:01: IVP, [place] 00 Q5Min, Dosing Weight 97.273, kg, PRN Pain Score 7-10, Start date: 08/29/20 9:01:00 CDT, Duration: 4 doses or times, Stop date: Limited # of times Flumazenil 2020-0 No 0.2 mg, Caesar lisa 08-29 Route: l 14:01: IVP, PRN, [place] 00 Dosing Weight 97.273, kg, PRN Benzodiaze [...] lisa 08-29 Route: l 14:01: IVP, PRN, [place] 00 Dosing Weight 97.273, kg, PRN Benzodiaze pine Reversal, Initial dose, Start date: 08/29/20 9:01:00 CDT, Duration: 30 day, Stop date: 09/28/20 9:00:00 CDT Naloxone 2020-0 No 0.4 mg, Memori a 08-29 Route: l 14:01: IVP, [place] 00 Q2MIN, Dosing Weight 97.273, kg, PRN [...] Drug form: l 10 13:15: INJ, Start [place] 00 date: 08/29/20 8:15:00 CDT, Stop date: 08/29/20 9:15:00 CDT norepinephr 202-0 No Route: IV, Memoria ine (ANES) 08-29 Drug form: l 10 13:15: INJ, Start [place] microgram 00 date: 08/29/20 8:15:00 CDT, Stop date: 08/29/20 9:15:00 CDT norepinephr 202-0 No Route: IV, Memoria ine (ANES) 08-29 Drug form: l 10 13:15: INJ, Start Marty microgram 00 date: 08/29/20 8:15:00 CDT, Stop date: 08/29/20 9:15:00 CDT norepinephr 2020-0 No Route: IV, Memoria ine (ANES) 08-29 Drug form: l 10 13:15: INJ, Start [place] microgram date: 08/29/20 8:15:00 CDT, Stop date: 08/29/20 9:15:00 CDT norepinephr 2020-0 No Route: IV, Memoria ine (ANES) 08-29 Drug form: l 10 13:15: INJ, Start Marty microgram 00 date: 08/29/20 8:15:00 CDT, Stop date: 08/29/20 9:15:00 CDT norepinephr 2020-0 No Route: IV, Memoria ine (ANES) 08-29 Drug form: l 10 13:15: INJ, Start [place] microgram 00 date: 08/29/20 8:15:00 CDT, Stop date: 08/29/20 9:15:00 CDT norepinephr 2020-0 No Route: IV, Memoria ine (ANES) 08-29 Drug form: l 10 13:15: INJ, Start [place] microgram 00 date: 08/29/20 8:15:00 CDT, Stop [...] PO, l Hydrochlori 11:42: Q24H, # 30 [place] de 150 MG 00 tab, 0 Extended Refill(s) Release Tablet 24 HR Yes 150 mg = 1 Memori a Bupropion 4-09 tab, PO, l Hydrochlori 11:42: Q24H, # 30 Marty de 150 MG 00 tab, 0 Extended Refill(s) Release Tablet 24 HR Yes 150 mg = 1 Memori a Bupropion 4-09 tab, PO, l Hydrochlori 11:42: Q24H, # 30 [place] de 150 MG 00 tab, 0 Extended Refill(s) Release Tablet 24 HR Yes 150 mg = 1 Memori a Bupropion 4-09 tab, PO, l Hydrochlori 11:42: Q24H, # 30 [place] de 150 MG 00 tab, 0 Extended Refill(s) Release Tablet 24 HR 2021-0 Yes 150 mg = 1 Memori a Bupropion 08-29 tab, PO, l Hydrochlori 11:42: Q24H, # 30 [place] de 150 MG 00 tab, 0 Extended Refill(s) Release Tablet 24 HR 2020-0 Yes 150 mg = 1 Memori a Bupropion - tab, PO, l Hydrochlori 11:42: Q24H, # 30 Marty de 150 MG 00 tab, 0 Extended Refill(s) Release Tablet 24 HR 2020-0 Yes 150 mg = 1 Memori a Bupropion - tab, PO, l Hydrochlori 11:42: Q24H, # 30 [place] de 150 MG 00 tab, 0 Extended Refill(s) Release Tablet apixaban 5 2020-0 Yes 5 mg, PO, Me moria MG Oral 08-29 Q12H, tab, l Tablet 11:41: 0 [place] [Eliquis] 00 Refill(s), For Atrial Fibrilatio n apixaban 2020-0 Yes 5 mg, PO, Me moria MG Oral 08-29 Q12H, tab, l Tablet 11:41: 0 [place] [Eliquis] 00 Refill(s), For Atrial Fibrilatio n [...] - Q12H, tab, l Tablet 11:41: 0 [place] [Eliquis] 00 Refill(s), For Atrial Fibrilatio n apixaban 5 2020-0 Yes 5 mg, PO, Me moria MG Oral 4-09 Q12H, tab, l Tablet 11:41: 0 [place] [Floydis] 00 Refill(s), For Atrial Fibrilatio n AMIODarone 2020-0 Yes 200 mg = 1 M emoria 200 mg oral 4-09 tab, PO, l tablet 11:38: Daily, # [place] 00 90 tab, 3 Refill(s) AMIODarone 2020-0 Yes 200 mg = 1 M emoria 200 mg oral 4-09 tab, PO, l tablet 11:38: Daily, # [place] 00 90 tab, 3 Refill(s) AMIODarone 2020-0 Yes 200 mg = 1 M emoria 200 mg oral 4-09 tab, PO, l tablet 11:38: Daily, # [place] 00 90 tab, 3 Refill(s) AMIODarone 2020-0 Yes 200 mg = 1 M emoria 200 mg oral 4-09 tab, PO, l tablet 11:38: Daily, # [place] 00 90 tab, 3 Refill(s) AMIODarone 2020-0 Yes 200 mg = 1 M emoria 200 mg oral 4-09 tab, PO, l tablet 11:38: Daily, # [place] 00 90 tab, 3 Refill(s) AMIODarone 2020-0 Yes 200 mg = 1 M emoria 200 mg oral 4-09 tab, PO, l tablet 11:38: Daily, # [place] 00 90 tab, 3 Refill(s) AMIODarone 2020-0 Yes 200 mg = 1 M emoria 200 mg oral 4-09 tab, PO, l tablet 11:38: Daily, # [place] 00 90 tab, 3 Refill(s) normal No [...] it y of mg tablet 08:18: (two) [place] 30 times Medical daily. Branch amiodarone Yes 100mg Take 100 Un matt 100 mg 3-17 mg by ity of tablet 08:18: mouth [place] 30 daily. Medical Branch predniSONE Yes [facility] [...] awake for 30 days. budesonide 2019-05 No [id number] .5mg Q.5D Take 2 mL Methodi (PULMICORT) [...] day for 30 days. acetaminoph 2019-05- No [id number] 1{tbl} Q6H Take 1 [facility] en-codeine 07-04-20 [...] mouth ity of 10 mg 08:06: daily. [place] tablet 41 Medical Branch esomeprazol 2019-05 Yes 40mg Take 40 mg Univers e (NEXIUM) 0-12 by mouth 2 ity of 40 mg 08:06: (two) [place] capsule 41 times Medical daily. Branch albuterol Yes Univers 90 4-14 ity of mcg/actuati 00:00: [place] on inhaler 00 Medical Branch albuterol Yes [...] Immunization Name Name PEG FELIZID-19 2020-07-23 Completed [facility] VACCINATION 00:00:00 [facility] PFIZER COVID-19 2020-07-02 Completed [facility] M[facility] VACCINATION 00:00:00 [facility] Influenza Virus 2017-03-08 Completed Universit y of Vaccine 00:00:00 [facility] Influenza Virus 2014-01-30 Completed Universit y of Vaccine (3+ yrs) 00:00:00 [facility] dical Branch Pneumococcal 13 2014-01-30 Completed Universit y of Conjugate, PCV13 00:00:00 [facility] dical (Prevnar 13) Branch Pneumococcal 2012-02-16 Completed University o f Polysaccharide, 00:00:00 [facility] ical PPSV23 (PNEUMOVAX) [place] Influenza Virus 2012-02-16 Completed [facility] of Vaccine 00:00:00 [facility] PPD (TB) 2012-02-16 Completed [facility] of 00:00:00 [facility] Hep B, Adol or Pedi 2011-09-01 Completed Unive rsity of Dosage 00:00:00 [facility] Hep B, Adol or Pedi 2011-03-17 Completed Unive rsity of Dosage 00:00:00 [facility] Influenza Virus 2011-02-10 Completed [facility] of Vaccine 00:00:00 [facility] Hep B, Adol or Pedi 2011-02-10 Completed Unive rsity of Dosage 00:00:00 [facility] PPD (TB) 2010-11-18 Completed [facility] of 00:00:00 [facility] TDAP (ADACEL) 2010-11-18 Completed [facility] of VACCINE 00:00:00 [facility] HEPATITIS A 2004-03-02 Completed [facility] of 00:00:00 [facility] HEPATITIS A 2003-08-01 Completed [facility] of 00:00:00 [facility] Pneumococcal 2001-10-04 Completed University o f Polysaccharide, 00:00:00 [facility] ical PPSV23 (PNEUMOVAX) [place] PPD (TB) 2001-10-04 Completed University of 00:00:00 [facility] Vital Signs Vital Name Observation Time [...] 14:08:00 141 mm[Hg] Univer sity of pressure [facility] Diastolic blood 2021-01-28 14:08:00 79 mm[Hg] Unive rsity of pressure [facility] Heart rate 2021-01-28 14:08:00 56 /min Universi ty of [facility] Respiratory rate 2021-01-28 14:02:00 18 /min Univ ersity of [facility] Body height 2021-01-28 14:02:00 162.6 cm [facility] Body weight 2021-01-28 14:02:00 99.111 kg [facility] BMI 2021-01-28 14:02:00 37.51 kg/m2 [facility] Systolic blood 2020-12-08 15:48:00 125 mm[Hg] [facility] pressure Diastolic blood 2020-12-08 15:48:00 76 mm[Hg] [facility] pressure Heart rate 2020-12-08 15:48:00 64 /min [facility] Body temperature 2020-12-08 15:48:00 36.61 Amina [facility] Respiratory rate 2020-12-08 15:48:00 17 /min [facility] Body height 2020-12-08 15:48:00 162.6 cm [facility] Body weight 2020-12-08 15:48:00 98.884 kg [facility] BMI 2020-12-08 15:48:00 37.42 kg/m2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 operative report will be issued by the physician performingthe procedure.[id number] 2020-09-08 19:30:47 Test Item Value Reference Range Interpretation Comments Case number (test [id number] code = 5252037) Surgical pathology See link below for PDF report (test code = Lab Report 2255) Result status (test This is Supplemental code = 7118024) Report for [id number] [facility] 1 Vw Qrygcorf6406-57-93 23:06:58EXAMINATION: XR CHEST 1 VW PORTABLE HISTORY: [...] enlarged, similar to prior. Bilateral shoulder arthroplasties. [facility]-[id number] Interface, Radiology Results Incoming - 09/06/2020 6:09PM [...] silhouette is enlarged, similar to prior.Bilateral shoulder arthroplasties.[facility]-[id number] [facility]2021-04-16 16:47:23Kirit Flood MD 09/05/2020 11:48 [address] Location: [...] RSI: Yes Number of Attempts at Approach: [address] [place], [place] [address] tbxh8866-98-14 23:21:56 Test Item Value Reference Range Interpretation [...] T wave abnormality, consider anterior ischemia-Abnormal ECG- [facility] qualitative TZW8560-64-43 22:48:41 Test Item Value Reference Range Interpretation Comments Interpretation (test Negative results do code = 0628728) not preclude 2019-nCoV infection and should not be used as the sole basis for treatment or other patient management decisions. Negative results must be combined with clinical observations, patient history, and epidemiological information. COVID-19 qualitative Not-Detected Not-Detected RT-PCR result (test code = 25946-7) COVID-19 qualitative See link below for C ase Number: RT-PCR (test code = PDF Lab Report [id number]) [facility] 16:31:00 Test Item Value Reference Range Interpretation Comments POC Activated Clotting Time (test code 153 s = POC Activated Clotting Time) [facility]BzygpfxBIUMJYWBES0910-88-00 16:31:00 Test Item Value Reference Range Interpretation Comments POC Activated Clotting Time (test code 153 s = POC Activated Clotting Time) [facility] EdinburgNmqkwimUEHXRTNYQT6590-39-98 16:31:00 Test Item Value Reference Range Interpretation Comments POC Activated Clotting Time (test code 153 s = POC Activated Clotting Time) [facility] EdinburgOsonfzeRRLQWPYVIO2703-97-22 16:31:00 Test Item Value Reference Range Interpretation Comments POC Activated Clotting Time (test code 153 s = POC Activated Clotting Time) [facility] EdinburgZtqaujhAICQYQWNMI1384-46-49 16:31:00 Test Item Value Reference Range Interpretation Comments POC Activated Clotting Time (test code 153 s = POC Activated Clotting Time) [facility] EdinburgVauamncCVSFNHCRHG6048-74-37 16:31:00 Test Item Value Reference Range Interpretation Comments POC Activated Clotting Time (test code 153 s = POC Activated Clotting Time) [place] 172431-04-09 16:31:00 Test Item Value Reference Range Interpretation Comments POC Activated Clotting Time (test code 153 s = POC Activated Clotting Time) [address]04-09 14:37:00 Test Item Value Reference Range Interpretation Comments POC Activated Clotting Time (test code 454 s = POC Activated Clotting Time) [address]04-09 14:37:00 Test Item Value Reference Range Interpretation Comments POC Activated Clotting Time (test code 454 s = POC Activated Clotting Time) [place] 172431-04-09 14:37:00 Test Item Value Reference Range Interpretation Comments POC Activated Clotting Time (test code 454 s = POC Activated Clotting Time) [facility] EdinburgUwzsbnuJFUXZNFFUM6640-87-79 14:37:00 Test Item Value Reference Range Interpretation Comments POC Activated Clotting Time (test code 454 s = POC Activated Clotting Time) [facility] EdinburgWviudrjGKPILUBEMD7813-11-63 14:37:00 Test Item Value Reference Range Interpretation Comments POC Activated Clotting Time (test code 454 s = POC Activated Clotting Time) [facility] EdinburgLfxkaneDFPQCBRLTF1207-73-40 14:37:00 Test Item Value Reference Range Interpretation Comments POC Activated Clotting Time (test code 454 s = POC Activated Clotting Time) [facility] EdinburgWbktsbxGHFIPPCJON5803-25-64 14:37:00 Test Item Value Reference Range Interpretation Comments POC Activated Clotting Time (test code 454 s = POC Activated Clotting Time) [facility] EdinburgVtdylulGUYPQIPFWN8174-15-40 14:13:00 Test Item Value Reference Range Interpretation Comments POC Activated Clotting Time (test code 354 s = POC Activated Clotting Time) [facility] EdinburgYyinchnCAHEZKMWVO0955-52-54 14:13:00 Test Item Value Reference Range Interpretation Comments POC Activated Clotting Time (test code 354 s = POC Activated Clotting Time) [facility] EdinburgIksttcqIBJHDMXWML3842-08-47 14:13:00 Test Item Value Reference Range Interpretation Comments POC Activated Clotting Time (test code 354 s = POC Activated Clotting Time) [facility] EdinburgSsxzqfxVBOZWCJBIL9529-10-43 14:13:00 Test Item Value Reference Range Interpretation Comments POC Activated Clotting Time (test code 354 s = POC Activated Clotting Time) [facility] EdinburgDoahdbhSXHOADAEJP8172-58-75 14:13:00 Test Item Value Reference Range Interpretation Comments POC Activated Clotting Time (test code 354 s = POC Activated Clotting Time) [facility] EdinburgFptstjaCRFFWKLCUV0727-08-58 14:13:00 Test Item Value Reference Range Interpretation Comments POC Activated Clotting Time (test code 354 s = POC Activated Clotting Time) [facility] EdinburgXusjnljIDDQTZHJSY9973-79-51 14:13:00 Test Item Value Reference Range Interpretation Comments POC Activated Clotting Time (test code 354 s = POC Activated Clotting Time) [facility] JDFAGTM2163-84-85 10:37:00Negative (08/29/20 5:37 AM) [facility] VFQVX2160-41-08 10:37:91890Piybghgt [employer] PANEL 2020-08-29 10:37:0028[facility] HermannCHEM UHFZD6680-22-34 10:37:001.01[facility] HermannCHEM SBAIP6271-04-35 10:37:02673Rmxxovnr HermannCHEM HERHY2041-81-53 10:37:003.8[facility] HermannCHEM BCMKA9970-67-81 10:37:66987Vikgkhlw HermannCHEM XOJGJ4752-14-43 10:37:0028[facility] HermannCHEM QYKKQ3884-82-73 10:37:009.8 [facility]annCHEM MJCMC8918-29-52 10:37:0011.8[facility] HermannCHEM PANEL 2020-08-29 10:37:0059[facility] HermannCHEM LMWZA7532-33-59 10:37:002.9[facility] MmanxhvDBWRWMUXRY4079-79-05 10:37:006.8[facility] BxbjnutSLUWGEQNDI5324-07-99 10:37:004.47[facility] NldxnvlLUJWTGSRGJ8639-00-71 10:37:0010.6[facility] DSZCXDZGZL1155-94-41 10:37:0034.0[facility] ZypzdlpBPAGLQOVLQ3557-87-87 10:37:00 76.1[facility] YwkldhkUVIIXLOTFA7274-88-25 10:37:00 Test Item Value Reference Range Interpretation Comments MCH (test code = MCH) 23.8 pg 27.0-31.0 [facility] GxifxntHZULNYCUNS4868-49-45 10:37:0031.3[facility] HermannHEMATOLOGY 2020-08-29 10:37:0018.2[facility] GnmfhwcQIOVCBMYOX0909-29-94 10:37:99486Rukuebfn FjoownoCOTNQWBFLG7292-30-09 10:37:007.5[facility] IgleqenJAKMEOFWES7530-85-68 10:37:00 Test Item Value Reference Range Interpretation Comments PT (test code = PT) 12.8 s 12.0-14.7 [facility] VvkkrqtXMYOJBNNEM5221-67-15 10:37:00 Test Item Value Reference Range Interpretation Comments INR (test code = INR) 0.97 1 0.85-1.17 [facility] ZzngokeQXEDDAXGBF4896-04-79 10:37:00 Test Item Value Reference Range Interpretation Comments PTT (test code = PTT) 25.0 s 22.9-35.8 [facility] IjwtadmSGRKZCSILM6461-77-77 10:37:0070.5[facility]annHEMATOLOGY 2020-08-29 10:37:0018.8[facility] JmjwxeoDAFFSGFSWS5474-07-79 10:37:009.5[facility] BqjaelwKVBSOYYGIT6783-08-42 10:37:000.9[facility] FialcwtANKZFODFWS9381-79-07 10:37:000.3[facility] MdbygzfIQSXNXHPXE7427-89-74 10:37:004.8[facility] [place] PPCJHEPICW0404-09-28 10:37:001.3[facility] PomwfwlRVLNSEBCAS3484-11-02 10:37:000.6 [facility] InushbkCUYHOWTCGJ0164-11-49 10:37:000.1[facility] HermannHEMATOLOGY 2020-08-29 10:37:001+ *ABN*(08/29/20 5:37 AM)[facility] OleabvkWVHNNBFGMW9294-41-66 10:37:00Not Detected (08/29/20 5:37 AM)[facility]annBL[facility]ANK RESULTS 2020-08-29 10:37:00Negative (08/29/20 5:37 AM)[facility] HermannCHEM KTAXA6689-67-14 10:37:92643Nmhrdcdv HermannCHEM ABIJN7852-41-25 10:37:0028[facility] HermannCHEM TNVWP7787-90-31 10:37:001.01[facility] HermannCHEM VIJSS7956-34-97 10:37:79886 [facility]annCHEM ZPZAB2701-44-52 10:37:003.8[facility] HermannCHEM PANEL 2020-08-29 10:37:17599Wtwwnqcz HermannCHEM ZPGPT6516-82-77 10:37:0028[facility] HermannCHEM QTXYA3526-84-25 10:37:009.8[facility] HermannCHEM TVJPU1254-65-89 10:37:0011.8[facility] HermannCHEM WXYZP2263-93-66 10:37:0059[facility] HermannCHEM CPWNJ4078-31-66 10:37:002.9[facility] DxvugfjGCCWXOZKDM5215-17-32 10:37:006.8 [facility] LculnroLMWXUGRWRZ2707-71-70 10:37:004.47[facility]annHEMATOLOGY 2020-08-29 10:37:0010.6[facility] JqcrryjHPVBIFUVEH9086-28-15 10:37:0034.0[facility] CtctywtRTCEDWWUCZ4288-01-92 10:37:0076.1[facility] VdajnymBWEVDCCALS6254-98-39 10:37:00 Test Item Value Reference Range Interpretation Comments MCH (test code = MCH) 23.8 pg 27.0-31.0 [facility] WvtjjcsSFSPXUGUUR6764-93-13 10:37:0031.3[facility] HermannHEMATOLOGY 2020-08-29 10:37:0018.2[facility] AlwdxgpLSLOOMSQAE8145-95-11 10:37:26750Jtiyvlpo PwqmdmjWEUBCDYBIF9327-90-33 10:37:007.5[facility] ZbgecvcWOSMQPWCLF9087-13-59 10:37:00 Test Item Value Reference Range Interpretation Comments PT (test code = PT) 12.8 s 12.0-14.7 [facility] LmqdgkzSELSYYWRZV1307-94-13 10:37:00 Test Item Value Reference Range Interpretation Comments INR (test code = INR) 0.97 1 0.85-1.17 [facility] ZlolhlwEZZJCTGMWX4697-86-04 10:37:00 Test Item Value Reference Range Interpretation Comments PTT (test code = PTT) 25.0 s 22.9-35.8 [facility] HrrmftfBAYCABUKSV9301-02-84 10:37:0070.5[facility]annHEMATOLOGY 2020-08-29 10:37:0018.8[facility] DelsmerNGWIGCBJGG5480-32-07 10:37:009.5[facility] WinavbzHMXYJZRALN4511-74-24 10:37:000.9[facility] EqvvhaaGGHXSMVSAF3604-58-55 10:37:000.3[facility] DcqvuloBMRLVFLLXH8275-29-20 10:37:004.8[facility] ATOFKOPYEQ1651-06-66 10:37:001.3[facility] KxiwzzvOGUEZQDVIO1049-77-36 10:37:000.6 [facility] MyjxelpOBJKSEKWQJ9109-42-23 10:37:000.1[facility] HermannHEMATOLOGY 2020-08-29 10:37:001+ *ABN*(08/29/20 5:37 AM)[facility] JbhmsvjKTIMTWKLUV5126-01-47 10:37:00Not Detected (08/29/20 5:37 AM)[facility]annBLOOD BANK RESULTS 2020-08-29 10:37:00Negative (08/29/20 5:37 AM)[facility] HermannCHEM BLKYA7288-70-28 10:37:46621Fsliqwpg HermannCHEM HHHOA3605-74-05 10:37:0028[facility] HermannCHEM RGNRC1928-51-61 10:37:001.01[facility] HermannCHEM SAESY6360-59-80 10:37:05441 [facility] HermannCHEM FUVUF8636-72-84 10:37:003.8[facility] HermannCHEM PANEL 2020-08-29 10:37:49125Aqtxqayn HermannCHEM NAAQC7325-17-24 10:37:0028[facility] HermannCHEM NNJUD5101-35-70 10:37:009.8[facility] HermannCHEM UWKPH5935-73-67 10:37:0011.8[facility] HermannCHEM EYTTK2910-47-33 10:37:0059[facility] HermannCHEM ISTWC1080-18-59 10:37:002.9[facility] ZubeiphPXJZRSYDRB9196-51-12 10:37:006.8 [facility] QtlbfxaJMPRJRZRMM6091-11-99 10:37:004.47[facility] HermannHEMATOLOGY 2020-08-29 10:37:0010.6[facility] EjdtdpnOBAPMNWVDQ2900-03-58 10:37:0034.0[facility] XgdqtydWRAFRNCKHS3243-08-94 10:37:0076.1[facility] ShorvvuCVBLWFNUVQ6127-25-04 10:37:00 Test Item Value Reference Range Interpretation Comments MCH (test code = MCH) 23.8 pg 27.0-31.0 [facility] WgiuumlHWGMNIRBED9111-13-86 10:37:0031.3[facility] HermannHEMATOLOGY 2020-08-29 10:37:0018.2[facility] QdvviriWYAVTPKNFB3094-98-14 10:37:63164Qpqsflpb JtjpcmiNHWOOKBVHH3410-31-08 10:37:007.5[facility] ProiuufYYYUECDYJQ6273-89-04 10:37:00 Test Item Value Reference Range Interpretation Comments PT (test code = PT) 12.8 s 12.0-14.7 [facility] OetgxckXUXGARFCDV8618-20-44 10:37:00 Test Item Value Reference Range Interpretation Comments INR (test code = INR) 0.97 1 0.85-1.17 [facility] VkjizpeQOXWSAOJPF0711-93-99 10:37:00 Test Item Value Reference Range Interpretation Comments PTT (test code = PTT) 25.0 s 22.9-35.8 [facility] UmxkuvuTCAUIDQETB1685-82-19 10:37:0070.5[facility] HermannHEMATOLOGY 2020-08-29 10:37:0018.8[facility] RyyczghLBKQWUDQVK8370-18-11 10:37:009.5[facility] UelscbhFXEUUTWLDH4137-67-54 10:37:000.9[facility] KkqlqqsXOMROKVNAN0097-59-52 10:37:000.3[facility] BjiasbhLKMCBQQQOO9543-33-38 10:37:004.8[facility] UJUXEMEWQG2114-97-81 10:37:001.3[facility] MgiwnnbPGLMUIROTK2447-28-25 10:37:000.6 [facility] HpsdnckYNXDMBJCYQ5230-76-05 10:37:000.1[facility] HermannHEMATOLOGY 2020-08-29 10:37:001+ *ABN*(08/29/20 5:37 AM)[facility] XobiycuLYWIREKSGT2612-39-50 10:37:00Not Detected (08/29/20 5:37 AM)[facility]annBLOOD BANK RESULTS 2020-08-29 10:37:00Negative (08/29/20 5:37 AM)[facility] HermannCHEM OOPJZ7617-05-01 10:37:28547Exlaohnf HermannCHEM CFVXV6171-82-04 10:37:0028[facility] HermannCHEM JOVGA9559-64-58 10:37:001.01[facility] HermannCHEM DJLSN0986-39-46 10:37:63263 [facility] HermannCHEM UZVNO3188-33-88 10:37:003.8[facility] HermannCHEM PANEL 2020-08-29 10:37:09830Jfrspdqk HermannCHEM SHLUM8609-07-95 10:37:0028[facility] HermannCHEM CCSKV8536-01-93 10:37:009.8[facility] HermannCHEM DWYCT8120-69-67 10:37:0011.8[facility] HermannCHEM ETFJR9150-96-07 10:37:0059[facility] HermannCHEM IWBSY2243-53-63 10:37:002.9[facility] OdahojgDBTZPHBFNY1220-82-40 10:37:006.8 [facility] LbzcnwqMWLUUQNPJM9774-80-42 10:37:004.47[facility] HermannHEMATOLOGY 2020-08-29 10:37:0010.6[facility] EqdngdeIWANYBMEYL7118-52-66 10:37:0034.0[facility] HelhkoeHNUCCYFZBJ7510-92-45 10:37:0076.1[facility] AcvyrwlZVBMMPVZDO0733-39-37 10:37:00 Test Item Value Reference Range Interpretation Comments MCH (test code = MCH) 23.8 pg 27.0-31.0 [facility] ReguzaiDZLJMQBTHH3551-33-02 10:37:0031.3[facility] HermannHEMATOLOGY 2020-08-29 10:37:0018.2[facility] EgadrcxYWUYEBYOBK2396-80-22 10:37:03655Euxqbniq QhubylnINIRMHZVAQ4945-02-89 10:37:007.5[facility] VxjzujpFEVWBRLHCZ2564-38-97 10:37:00 Test Item Value Reference Range Interpretation Comments PT (test code = PT) 12.8 s 12.0-14.7 [facility] XunjamkQEROXITXYO6033-15-42 10:37:00 Test Item Value Reference Range Interpretation Comments INR (test code = INR) 0.97 1 0.85-1.17 [facility] XeyxdygHGKQJIQKQG0779-31-34 10:37:00 Test Item Value Reference Range Interpretation Comments PTT (test code = PTT) 25.0 s 22.9-35.8 [facility] PwhcfudRRBDECHXJD1729-38-11 10:37:0070.5[facility] HermannHEMATOLOGY 2020-08-29 10:37:0018.8[facility] YnuetuxSEMQLBORIX8607-57-62 10:37:009.5[facility] GyepaqhCJSITGYDRS7835-98-70 10:37:000.9[facility] KmdgmzqWEDYBJESYO3743-82-68 10:37:000.3[facility] RedkfglKRCNXEOYDP0095-04-98 10:37:004.8[facility] SNPAKRWZTB4230-25-00 10:37:001.3[facility] QxkkvhsSBCPWTASBD4878-18-02 10:37:000.6 [facility] JaeiqwzBEENWOQEVY2669-71-26 10:37:000.1[facility] HermannHEMATOLOGY 2020-08-29 10:37:001+ *ABN*(08/29/20 5:37 AM)[facility] GneuddgKCLUJTWTXI6072-87-62 10:37:00Not Detected (08/29/20 5:37 AM)[facility] HermannBLOOD BANK RESULTS 2020-08-29 10:37:00Negative (08/29/20 5:37 AM)[facility] HermannCHEM ZSWQA9920-66-67 10:37:91258Eqglxqir HermannCHEM NBKCK7364-91-63 10:37:0028[facility] HermannCHEM KFXHV5151-80-23 10:37:001.01[facility] HermannCHEM SVEUH9898-18-17 10:37:61444 [facility] HermannCHEM TLFYW6573-12-74 10:37:003.8[facility] HermannCHEM PANEL 2020-08-29 10:37:71771Fmwjqpgh HermannCHEM KUYQR0633-75-26 10:37:0028[facility] HermannCHEM GJDYX9528-85-98 10:37:009.8[facility] HermannCHEM OTGBO6955-20-45 10:37:0011.8[facility] HermannCHEM BHYLT2355-03-37 10:37:0059[facility] HermannCHEM IHHAF3601-48-68 10:37:002.9[facility] HefsdumELZIBDQBSY1869-96-98 10:37:006.8 [facility] YbzdwbrOVBBMJRLXC0241-83-37 10:37:004.47[facility] HermannHEMATOLOGY 2020-08-29 10:37:0010.6[facility] MgvyahhQIRINBPZSJ4652-43-59 10:37:0034.0[facility] ZwnycxrGCOWQOSXQF3487-48-68 10:37:0076.1[facility] KifgmnzHORYJBLTTG6286-42-88 10:37:00 Test Item Value Reference Range Interpretation Comments MCH (test code = MCH) 23.8 pg 27.0-31.0 [facility] LkafrofFOKRAMIPBT1226-01-15 10:37:0031.3[facility] HermannHEMATOLOGY 2020-08-29 10:37:0018.2[facility] HbjbqxwPIPRLGIAWS4554-76-15 10:37:21790Fxhrufml MaadbqoGXKXFXXPUN5856-78-29 10:37:007.5[facility] OlkwzpaUVXSXMZNFV4087-87-50 10:37:00 Test Item Value Reference Range Interpretation Comments PT (test code = PT) 12.8 s 12.0-14.7 [facility] FarudpuFVQSCMOMSV1209-32-70 10:37:00 Test Item Value Reference Range Interpretation Comments INR (test code = INR) 0.97 1 0.85-1.17 [facility] CblelvbMMZBMPSSWI9147-34-61 10:37:00 Test Item Value Reference Range Interpretation Comments PTT (test code = PTT) 25.0 s 22.9-35.8 [facility] PxtiyjaJUFJYHJSCI6034-07-04 10:37:0070.5[facility] HermannHEMATOLOGY 2020-08-29 10:37:0018.8[facility] IpsnnkwLGXNCFMYBZ6878-77-39 10:37:009.5[facility] FbmnssvNVQVOFTTJB7583-03-84 10:37:000.9[facility] PfqqdrwYFVRFLHNER2111-90-30 10:37:000.3[facility] UyxodmpHTKXZJYWJQ4085-33-11 10:37:004.8[facility] AODDFLLXJU3836-85-75 10:37:001.3[facility] ZxjviplITYSQUUWDC5451-93-85 10:37:000.6 [facility] FayzwvoWUYKNBQICB1534-05-50 10:37:000.1[facility]annHEMATOLOGY 2020-08-29 10:37:001+ *ABN*(08/29/20 5:37 AM)[facility] BalzjpoROCHIHNQKI8738-02-84 10:37:00Not Detected (08/29/20 5:37 AM)[facility] RESULTS 2020-08-29 10:37:00Negative (08/29/20 5:37 AM)[facility]annCHEM JZJUO8019-05-06 10:37:04897Hwwglrah HermannCHEM JGGYH3258-16-14 10:37:0028[facility]annCHEM BWAXD3225-96-04 10:37:001.01[facility]annCHEM PPBNR1059-96-43 10:37:83301 [facility]annCHE[facility] KTLJK6475-22-63 10:37:003.8[facility]annCHEM PANEL 2020-08-29 10:37:73956Ousonayc HermannCHEM BIIGH7350-04-68 10:37:0028[facility]annCHEM ENTKE9875-64-94 10:37:009.8[facility]annCHEM IFQXD6889-52-33 10:37:0011.8[facility]annCHEM JCHFP1660-93-25 10:37:0059[facility]annCHEM ZBCPB9085-45-73 10:37:002.9[facility] ZubilroLQTFVNRCGM4296-22-21 10:37:006.8 [facility] AzpaliaRNTHRKETEI2160-96-06 10:37:004.47[facility]annHEMATOLOGY 2020-08-29 10:37:0010.6[facility] DawgmlfTYYIWVLMPP9602-41-15 10:37:0034.0[facility] EyufcoeBHDZVNEJMC9579-67-73 10:37:0076.1[facility] YxifklwIYENGPYPUJ2926-37-91 10:37:00 Test Item Value Reference Range Interpretation Comments MCH (test code = MCH) 23.8 pg 27.0-31.0 [facility] NqweclqXEFSDDURKU2564-49-99 10:37:0031.3[facility]annHEMATOLOGY 2020-08-29 10:37:0018.2[facility] HcapeuvFAXEWHGVZX5162-36-25 10:37:61976Gmruyuiy SuqtkhkCBNXFGQZFB4416-05-59 10:37:007.5[facility] HqpzoffWSGEUZICPS2805-31-36 10:37:00 Test Item Value Reference Range Interpretation Comments PT (test code = PT) 12.8 s 12.0-14.7 [facility] MwwepkrIENMBUDRWJ4959-33-87 10:37:00 Test Item Value Reference Range Interpretation Comments INR (test code = INR) 0.97 1 0.85-1.17 [facility] XuwfqfyBTUFXOXOTG9911-49-03 10:37:00 Test Item Value Reference Range Interpretation Comments PTT (test code = PTT) 25.0 s 22.9-35.8 [facility] IctpntzPIVOIWGCLW1607-91-42 10:37:0070.5[facility]annHEMATOLOGY 2020-08-29 10:37:0018.8[facility] PrvippaKJBWCRQPHV7171-95-32 10:37:009.5[facility] ZcajilgEPGTQHSNGH0457-40-46 10:37:000.9[facility] MffaxjbCBCJMQZPMN3647-49-41 10:37:000.3[facility] UbnbpfvPWEVRDZWOP9130-36-18 10:37:004.8[facility] IDKHYLTRWB0324-01-90 10:37:001.3[facility] TzihghgWDUQPFPXFJ2279-89-61 10:37:000.6 [facility] KzcfbkrKNIQIYIWNN0612-35-53 10:37:000.1[facility]annHEMATOLOGY 2020-08-29 10:37:001+ *ABN*(08/29/20 5:37 AM)[facility] RxakksvUFQYKCJEXC3519-00-00 10:37:00Not Detected (08/29/20 5:37 AM)[facility]annBLOOD BANK RESULTS 2020-08-29 10:37:00Negative (08/29/20 5:37 AM)[facility]annCHEM TZTLN6157-83-83 10:37:71748Sdpdctsv HermannCHEM MSOOV7111-51-45 10:37:0028[facility]annCHEM ZZCWT5809-94-84 10:37:001.01[facility]annCHEM CXLEH5695-88-94 10:37:34489 [facility]annCHEM HSIDX7766-46-93 10:37:003.8[facility]annCHEM PANEL 2020-08-29 10:37:40759Fjwtidjb HermannCHEM GHSSL0799-90-23 10:37:0028[facility]annCHEM ZZOEH4078-06-89 10:37:009.8[facility] HermannCHEM WZGZU3866-38-52 10:37:0011.8[facility]annCHEM WSLVW7033-96-72 10:37:0059[facility]annCHEM CAZIP4627-04-49 10:37:002.9[facility] SxyzuonTDFVPEKXEN8632-98-40 10:37:006.8 [facility] DabxnmqGJETPOCTYW0517-74-29 10:37:004.47[facility]annHEMATOLOGY 2020-08-29 10:37:0010.6[facility] QckntiuSKXNSEYCGE2376-71-12 10:37:0034.0[facility] GmbrzuyFZTHPVEACT0264-70-52 10:37:0076.1[facility] RkhcsefWRZTGZQNMF3244-36-37 10:37:00 Test Item Value Reference Range Interpretation Comments MCH (test code = MCH) 23.8 pg 27.0-31.0 [facility] OrckzriFDVGQJKPJW0189-44-66 10:37:0031.3[facility]ann[facility]MATOLOGY 2020-08-29 10:37:0018.2[facility] ThdsyptPKWIITUEHA3538-83-67 10:37:04990Kybbcfaj SiewohjKRKDQBTRIW8139-21-37 10:37:007.5[facility] IccggvbHQDNLBTLRG9903-39-62 10:37:00 Test Item Value Reference Range Interpretation Comments PT (test code = PT) 12.8 s 12.0-14.7 [facility] HhzxacrFNKYSYXIBI8325-87-85 10:37:00 Test Item Value Reference Range Interpretation Comments INR (test code = INR) 0.97 1 0.85-1.17 [facility] FwzvqdiTPZUYODJTC8917-42-37 10:37:00 Test Item Value Reference Range Interpretation Comments PTT (test code = PTT) 25.0 s 22.9-35.8 [facility] DawbpioAVUEECODOM2064-06-90 10:37:0070.5[facility] HermannHEMATOLOGY 2020-08-29 10:37:0018.8[facility] FuewuubIKLBHSICZH3649-44-86 10:37:009.5[facility] AnyhphtNOFARKDWUX4879-11-70 10:37:000.9[facility] VwnsegmEDJOBJMJLO4821-18-39 10:37:000.3[facility] EiobibeAJIISKPYNS7196-49-34 10:37:004.8[facility] Marty NVGJWMQSOH4412-17-39 10:37:001.3[facility] LumgqlkECOMNJZQKR2609-55-95 10:37:000.6 [facility] ExfuiutNKEFZYBOSP9676-16-56 10:37:000.1[facility]annHEMATOLOGY 2020-08-29 10:37:001+ *ABN*(08/29/20 5:37 AM)[facility] RfikmxqNZGEIGRVLR1313-25-49 10:37:00Not Detected (08/29/20 5:37 AM)[facility] 2020-08-27 23:14:39PROCEDURE: NM [...] rate, with complete emptying by 4 hours. [facility]-[id number] Interface, Radiology Results - 08/27/2020 6:17 PM [...] rate, with complete emptying by 4 hours. [facility]-[id number] [facility] referral test 2020-05-09 21:24:58 Test Item Value Reference Range Interpretation Comments Misc test HIV-1 RNA QUAL PCR name (test code = 2566) Misc test see note Human Immunodef iciency result (test Virus 1 (HIV-1) by code = 1730) Qualitative After [employer] Program Assistant-M ediated Amplification ( TMA) [facility] test code 9626406 HIV-1 by Qualit ative TMA See Note SOURCE/SPECIMEN PLASMA HIV-1 RNA, QUAL ITATIVE TMA HIV-1 RNA, QL TMA T FRUIT CULLER Test Not Performed. Initial testing necessi tated a repeat, but the re was insufficient sa mple to perform repeat. SAMPLE LEFT FOR REPEAT IS 50 uL. NEED 1000 u L TO RUN REPEAT. This te st was performed using the APTIMA(R) HIV-R NA Qualitative Ass ay (Gen-Probe). ======== ======== Te st performed by:[employer] [place] [address] KYLE (test HIVQL - HIV-1 RNA, code = KYLE) Qualitative TMA (FROZEN)ARUP Test Code: 2222911Jxmugr: plasma [facility] duplex venous upper rfsumjojq7001-33-50 04:57:00 Vascular Ultrasound Laboratory Upper Extremity Venous Report [id number] [address] Pat.Name: LIO WATTS.ID: [id number] St.Date: 04/30/2020 Refer.MD: ELISEO ARCE MD Exam Time: 5:04:00 PM Study Type:UE Venous Age: 9 1955,65Y Sex: FEMALE Sonogrphr: IBIS Espinosa, SANKET Pat. Stat.:Inpatient Room: [place] [address] 2020 Tape Vol: EDGAR, CPT - 4: 74846 Echo Event ID:[id number] Order ID: [id number] Reason for Study:Arm swelling or pain, DVT [...] veins.*Preliminary result reported to ASHLEY Santos @ 5581 on 04/30/20.PHYSICIAN INTERPRETATION Venous examination of the both upper extremities and neck demonstratedno evidence of deep venous thrombosis. Total superficial vein thrombosis of the right basilic vein. FINDINGS: Signed 04/30/2020 10:57 PMFrancis Cabral MD, RPVIInterface, Radiology Results In - 04/30/2020 10:58 PM CST Vascular Ultrasound Laboratory Upper Extremity Venous Report [address] [place] [address] Pat.Name: LIO WATTS Pat.ID: [id number] St.Date: 04/30/2020 Refer.MD: ELISEO ARCE MD Exam Time: 5:04:00 PM Study Type:UE Venous Age: 9 1955,65Y Sex: FEMALE Sonogrphr: Dwayne Macias, RVChristian, RCS Pat. Stat.:Inpatient Room: [place] [address] 2020 Tape Vol: , CPT - 4: 56928 Echo Event ID:[id number] Order ID: [id number] Reason for Study:Arm swelling or pain, DVT [...] veins.*Preliminary result reported to ASHLEY Santos @ 5783 on 04/30/20.PHYSICIAN INTERPRETATION Venous examination of the both upper extremities and neck demonstratedno evidence of deep venous thrombosis. Total superficial vein thrombosis of the right basilic vein. FINDINGS: ------Signed 04/30/2020 10:57 PMFrancis Cabral MD, [facility] Chest 2 [id number] 22:21:01EXAMINATION: XR CHEST 2 VW CLINICAL HISTORY: [...] cardiopulmonary process or active disease of the chest.[id number] HospitalMidline Unsuccessful Ahftclh6626-46-18 17:14:34ANicole zhang RN 04/30/2020 11:25 AMMidline Unsuccessful [...] place a PIV g.20 in lower arm .[facility] 1 Vw Rxoymkha9335-43-29 16:20:14EXAMINATION: XR ABDOMEN 1 VW PORTABLE CLINICAL HISTORY: Abdominal pain post op COMPARISON: No prior IMPRESSION:1.Residual barium within the colon throughout. No small bowel obstruction noted. [facility]-2U [id number] Interface, Radiology Results Incoming - 04/30/2020 10:23 AM CST EXAMINATION: XR ABDOMEN 1 VW PORTABLECLINICAL HISTORY: Abdominalpain post opCOMPARISON: No priorIMPRESSION:1.Residual barium within the colon throughout. No smallbowel obstruction noted.[facility]-[id number] OmndpoxaFpuioz1701-95-27 20:57:57Carlee Malloy MD 04/28/2020 2:59 PMAirwayPerformed by: Carlee Malloy MDAuthorized by: Carlee Malloy MD Location: ORUrgency: ElectiveDifficult Airway: No Anesthesiologist: Kvng Malloy MDResident/CHIEF OPTOMETRY SERVICE/AA: Allan Morocho DOPerformed by: resident/CHIEF OPTOMETRY SERVICE/AAPreoxygenated wjem798% O2: Yes C- spine Precautions Maintained Throughout: [...] No Number of Attempts at Approach: 1 [facility]villeTransthoracic Echocardiogram Complete, (w Contrast, Strain and 3D if needed)2020-04-28 00:20:00 Echocardiography Report [address] [place] [address] Pat.Name: LIO WATTS Marta.ID: [id number] .Date: 04/27/2020 Refer.MD: ELISEO ARCE MD Exam Time: 2:21:00 PM Study Type:Routine Echo Height: 64in Weight: 213lb BSA: 2.01 m2 Age: 9 1955,65Y Sex: FEMALE BP: 128/89 HR: 102 bpm Sonogrphr: SANKET Perkins Pat. Stat.:Inpatient Room: [facility] Study Status:Final Echo Event ID:[id number] Order ID: [id number] Reason for Study:Atrial FibrillationHistory / Clinical:Hypertension Procedures: [...] estimate PA systolic pressure. MEASUREMENTS: 2DParasternal Long Leonia Ao An 2.2 cm LVPWd 1 cm [...] - 04/27/2020 6:21 PM CST Echocardiography Report [address] [facility] [address], [place] [address] Pat.Name: LIO WATTS.ID: [id number] .Date: 04/27/2020 Refer.MD: ELISEO ARCE MD Exam Time: 2:21:00 PM Study Type:Routine Echo Height: 64in Weight: 213lb BSA: 2.01 m2 Age: 9 1955,65Y Sex: FEMALE BP: 128/89 HR: 102 bpm Sonogrphr: Julieta Wills [facility] Pat. Stat.:Inpatient Room: [facility] Study Status:Final Echo Event ID:[id number] Order ID: [id number] Reason for Study:Atrial FibrillationHistory / Clinical:Hypertension Procedures: [...] PA systolic pressure.- MEASUREMENTS: ---- 2DParasternal Long Leonia Ao An 2.2 cm LVPWd 1 cm [...] LVOT CI 3.1 l/m/m2 Signed 04/27/2020 06:20 PM[facility] Rosaurarandolph healthNicoNorthwest [facility] Esophagram Double Zddblshn6724-19-74 18:07:12EXAMINATION: FL ESOPHAGRAM DOUBLE CONTRAST CLINICAL HISTORY: [...] herniaCOMPARISON: Limited comparison with chest [facility] from [facility]2019TECHNIQUE: Esophagram was performed with effervescent granules and barium.FLUOROSCOPIC TIME: 1.5 minutes.NUMBER OF IMAGES: 9 fluoroscopic images.IMPRESSION:No strictures. Normal esophageal mucosa.Nonspecific esophageal dysmotility, with mildly delayed esophageal emptying and scatterednonpropulsive tertiary contraction waves.There is a moderately sized type III hiatal hernia. There was mild spontaneous gastroesophageal reflux.[id number] Wo Contrast Abdomen Wo Contrast Pelvis Wo Xasrycul5417-58-60 15:23:55EXAMINATION: CT CHEST WO CONTRAST ABDOMEN WO [...] chronic and incidental findings as detailed above. [facility]-[id number] Dictated and approved by radiology resi dent/fellow: Jenna Valenzuela M.D. I, Medhat Flowers Jr., M.D., personally reviewed the images and resident's/fellow's findings and agree with the final report.[facility], Radiology Results Incoming - 04/21/2020 9:27 [...] aorta.4.Additional chronic and incidental findings as detailed above.[facility]-[id number] and approved by resident care spec/fellow: Jenna Valenzuela M.D.I, Medhat Flowers Jr., M.D., personally reviewed the images and resident's/fellow's findings and agree with the final report. [facility] HospitalDEX, SADIE, TV,PCR, IN [id number] 15:38:00 Test Item Value Reference Range Interpretation Comments FT (test code = CHTR) Not detected (qualifier Not Detected N value) FT (test code = Not detected (qualifier Not Detected N NGONO) value) FT (test code = TRVG) Not detected (qualifier Not Detected N value) URINALYSIS WITH [id number] 10:57:00 Test Item Value Reference Range Interpretation Comments Color (test code = UCOLR) Dk. Yellow Clarity (test code = UCLAR) Hazy Glucose (test code = UGLUC) NEGATIVE NEGATIVE N Bilirubin (test code = UBILI) NEGATIVE NEGATIVE N Ketones (test code = UKET) NEGATIVE NEGATIVE N Specific Holt (test code = 1.025 1.005-1.030 A USPGR) [...]
[2021-04-06] MEDS ORDERED: HYDROMORPHONE HCL 2 MG/ML inj ONE ×3 (01:37→03:49)
[2021-04-06] MEDS ORDERED: ONDANSETRON 4 MG/2 ML VIAL ONE (01:37)
[2021-04-06] MEDS ORDERED: NA CHLORIDE 0.9% 500 ML ONE (01:38)
[2021-04-06 02:17] LABS: Protime INR 1.03
[2021-04-06 02:21] LABS: RBC Red Blood Cell Count 3.73 M/uL (3.86-4.86)
[2021-04-06 02:22] LABS: Absolute Lymphocytes (CBC) 1.2 K/uL (0.7-4.9); Basophils % 0.4 % (0-1.3); Hematocrit 27.6 % (36.0-45.0); Lymphocytes % 15.7 % (15.3-44.8); MPV 7.2 fL (7.6-11.3)
[2021-04-06 03:12] LABS: Urine Blood Negative (Negative); Urine Glucose Negative (Negative); Urine Protein Negative (Negative); Urine pH 8.5 (5.0-7.0)
[2021-04-06 03:18] LABS: Anisocytosis 2+; Blood Morphology Comment NOTED (NOT SEEN); Platelet Estimate ADEQ; Polychromasia 1+; White Blood Cell Scan OK (OK)
--- NOTE | 2021-04-06 03:34 | ER ---
Nurse's Notes [facility] Name: Marjan Fleming Age: 66 yrs Sex: Female : 1955 Arrival Date: 04/06/2021 Time: 01:16 Bed 8 Private MD: Diagnosis: Acute pain, not elsewhere classified-unable to walk Presentation: 04/06 01:15 Chief complaint: Patient states: pain to RT forearm and all over, pt states she was bs2 discharged approx 1400 PM Monday April 05, 2021. Coronavirus screen: At this time, the client does not indicate any symptoms associated with coronavirus-19. pt had both vaccine shots and a booster. Ebola Screen: No symptoms or risks identified at this time. Initial Sepsis Screen: Does the patient meet any 2 criteria? RR > 20 per min. No. Patient's initial sepsis screen is negative. Does the patient have a suspected source of infection? No. Patient's initial sepsis screen is negative. Risk Assessment: Do you want to hurt yourself or someone else? Patient reports no desire to harm self or others. Onset of symptoms is unknown. Transition of care: patient was not received from another setting of care. 01:15 Method Of Arrival: EMS: [facility] bs2 01:15 Acuity: BLAYNE 3 bs2 Triage Assessment: 01:15 General: Appears uncomfortable, obese, Behavior is cooperative, anxious, restless. bs2 Pain: Complains of pain in pt has multiple areas of pain, most notable is RT forearm Pain currently is 10 out of 10 on a pain scale. EENT: No signs and/or symptoms were reported regarding the EENT system. Neuro: No deficits noted. Cardiovascular: No deficits noted. Respiratory: No deficits noted. GI: No signs and/or symptoms were reported involving the gastrointestinal system. : No signs and/or symptoms were reported regarding the genitourinary system. Derm: Skin is fragile, is thin, Skin is dry, Skin is black, red, yellow, Skin temperature is warm Wound noted palmar aspect of right forearm Bruising that is dark purple, brown, yellow. Musculoskeletal: Circulation, motion, and sensation intact. Capillary refill < 3 seconds, is sluggish, Range of motion: limited in right elbow, right wrist and right knee Swelling. Historical: - Allergies: 03:32 Bactrim DS; bs2 03:32 butorphanol tartrate; bs2 03:32 Fentanyl; bs2 03:32 Reglan; bs2 03:32 Stadol; bs2 03:32 sulfamethoxazole (bulk); bs2 03:32 TRIMETHOPRIM; bs2 - PMHx: 03:25 Anxiety; Atrial Fib; Bipolar disorder; Chronic pain; COPD; esophageal varices; bs2 Hepatitis; HIV; Hypertension; Migraines; Panic Attacks; - PSHx: 03:25 Appendectomy; Bilateral shoulder repair; Cholecystectomy; hernia repair; bs2 - Immunization history:: Adult Immunizations up to date, Client reports receiving the 2nd dose of the Covid vaccine, pt also received booster Flu vaccine is up to date. - Social history:: Patient/guardian denies using alcohol, street drugs, The patient lives with family, Smoking status: Patient/guardian denies using tobacco, the patient reports quitting approximately 1 years ago. - Family history:: not pertinent. Screenin:30 Abuse screen: Denies threats or abuse. Denies injuries from another. Nutritional bs2 screening: No deficits noted. Tuberculosis screening: No symptoms or risk factors identified. Fall Risk Fall in past 12 months (25 points). Assessment: 01:30 General: Appears uncomfortable, obese, unkempt, Behavior is anxious. Pain: Complains of bs2 pain in right knee and right wrist and right elbow and right arm and palmar aspect of right forearm Pain currently is 10 out of 10 on a pain scale. Alleviated by medications, Aggravated by. Neuro: No deficits noted. Cardiovascular: No deficits noted. Respiratory: No deficits noted. Reports shortness of breath on exertion pain with cough. GI: No signs and/or symptoms were reported involving the gastrointestinal system. : No signs and/or symptoms were reported regarding the genitourinary system. EENT: No signs and/or symptoms were reported regarding the EENT system. Musculoskeletal: pt is covered in bruises all over body, has swelling in upper and lower extremities. Injury Description:. Vital Signs: 01:15 BP 179 / 93 LA Supine (auto/lg); Pulse 80 MON; Resp 25 S; Temp 98.5(O); Pulse Ox 85% on bs2 R/A; Weight 102.06 kg (R); Height 5 ft. 4 in. (162.56 cm) (R); Pain 10/10; 01:15 Body Mass Index 38.62 (102.06 kg, 162.56 cm) bs2 ED Course: 01:15 Arm band placed on left wrist. bs2 01:16 Patient arrived in ED. mw2 01:16 Liz Otoole MD is Attending Physician. ma2 01:30 Inserted saline lock: 20 gauge in left ,using aseptic technique. Breast Blood collected.bs2 01:30 Patient has correct armband on for positive identification. Placed in gown. Bed in low bs2 position. Call light in reach. Side rails up X 1. wreath maker on. Pulse ox on. NIBP on. Door closed. Noise minimized. Lights dimmed. Warm blanket given. Verbal reassurance given. Head of bed elevated. Elevated right arm. 01:40 Initial lab(s) drawn, by me, sent to lab. bs2 01:51 XRAY Chest (1 view) In Process Unspecified. EDMS 02:02 Bridget Costa, RN is Primary Nurse. bs2 02:45 Urine collected: clean catch specimen, clear, Amount Voided: 100mL pt placed on bed gunderson.bs2 03:20 Basic Metabolic Panel Sent. bs2 03:20 LFT's Sent. bs2 03:20 Magnesium Sent. bs2 03:20 NT PRO-BNP Sent. bs2 03:20 Troponin (emerg Dept Use Only) Sent. bs2 03:25 Triage completed. bs2 03:33 Goldy Baker MD is Hospitalizing Provider. ma2 07:00 No provider procedures requiring assistance completed. intact, No redness/swelling at 7 site. Administered Medications: 02:03 Drug: Dilaudid (HYDROmorphone) 1 mg Route: IVP; Site: Other; bs2 03:41 Follow up: Response: No adverse reaction bs2 02:03 Drug: NS 0.9% 500 ml Route: IV; Rate: calculated rate; Site: Other; bs2 03:41 Follow up: IV Status: Completed infusion; IV Intake: 500ml bs2 02:03 Drug: Zofran (Ondansetron) 4 mg Route: IVP; Site: Other; bs2 03:41 Follow up: Response: No adverse reaction bs2 03:10 Drug: Dilaudid (HYDROmorphone) 1 mg Route: IVP; Site: Other; bs2 Intake: 03:41 IV: 500ml; Total: 500ml. bs2 Outcome: 03:33 Decision to Hospitalize by Provider. ma2 07:00 Admitted to ER Hold. Please see [facility] for further documentation. 7 07:00 Condition: stable jl7 07:00 Discharge instructions given to patient, Instructed on the need for admit, Demonstrated understanding of instructions. 13:08 Patient left the ED. jl7 Signatures: Dispatcher [employer] Jesica Delvalle, RN RN jl7 Liz Otoole MD MD ma2 Shimon Ruiz mw2 Bridget Costa RN RN bs2
--- NOTE | 2021-04-06 03:34 | EDPHYS ---
Physician Documentation [facility] Name: Marjan Fleming Age: 66 yrs Sex: Female : 1955 Arrival Date: 04/06/2021 Time: 01:16 Bed 8 Private MD: ED Physician Liz Otoole HPI: 04/06 01:39 This 66 yrs old Female presents to ER via Unassigned with complaints of pain ma2 all over. 01:39 Onset: The symptoms/episode began/occurred gradually, 1 day(s) ago. Severity of ma2 symptoms: At their worst the symptoms were moderate in the emergency department the symptoms are unchanged. The patient has not experienced similar symptoms in the past. Patient was discharged from the hospital today at 2 PM, she presented to the ER with generalized pain all over, she said that she cannot take care of her self, did not eat or drink anything.. Historical: - Allergies: 03:32 Bactrim DS; bs2 03:32 butorphanol tartrate; bs2 03:32 Fentanyl; bs2 03:32 Reglan; bs2 03:32 Stadol; bs2 03:32 sulfamethoxazole (bulk); bs2 03:32 TRIMETHOPRIM; bs2 - PMHx: 03:25 Anxiety; Atrial Fib; Bipolar disorder; Chronic pain; COPD; esophageal varices; bs2 Hepatitis; HIV; Hypertension; Migraines; Panic Attacks; - PSHx: 03:25 Appendectomy; Bilateral shoulder repair; Cholecystectomy; hernia repair; bs2 - Immunization history:: Adult Immunizations up to date, Client reports receiving the 2nd dose of the Covid vaccine, pt also received booster Flu vaccine is up to date. - Social history:: Patient/guardian denies using alcohol, street drugs, The patient lives with family, Smoking status: Patient/guardian denies using tobacco, the patient reports quitting approximately 1 years ago. - Family history:: not pertinent. ROS: 01:39 Constitutional: Negative for fever, chills, and weight loss, Eyes: Negative for injury, ma2 pain, redness, and discharge. 01:39 All other systems are negative. Exam: 01:39 Constitutional: This is a well developed, well nourished patient who is awake, alert, ma2 and in no acute distress. Head/Face: Normocephalic, atraumatic. Eyes: Pupils equal round and reactive to light, extra-ocular motions intact. Lids and lashes normal. Conjunctiva and sclera are non-icteric and not injected. Cornea within normal limits. Periorbital areas with no swelling, redness, or edema. ENT: Nares patent. No nasal discharge, no septal abnormalities noted. Tympanic membranes are normal and external auditory canals are clear. Oropharynx with no redness, swelling, or masses, exudates, or evidence of obstruction, uvula midline. Mucous membranes moist. Neck: Trachea midline, no thyromegaly or masses palpated, and no cervical lymphadenopathy. Supple, full range of motion without nuchal rigidity, or vertebral point tenderness. No Meningismus. Chest/axilla: Normal chest wall appearance and motion. Nontender with no deformity. No lesions are appreciated. Cardiovascular: Regular rate and rhythm with a normal S1 and S2. No gallops, murmurs, or rubs. Normal PMI, no JVD. No pulse deficits. Respiratory: Lungs have equal breath sounds bilaterally, clear to auscultation and percussion. No rales, rhonchi or wheezes noted. No increased work of breathing, no retractions or nasal flaring. Abdomen/GI: Soft, non-tender, with normal bowel sounds. No distension or tympany. No guarding or rebound. No evidence of tenderness throughout. Vital Signs: 01:15 BP 179 / 93 LA Supine (auto/lg); Pulse 80 MON; Resp 25 S; Temp 98.5(O); Pulse Ox 85% on bs2 R/A; Weight 102.06 kg (R); Height 5 ft. 4 in. (162.56 cm) (R); Pain 10/10; 01:15 Body Mass Index 38.62 (102.06 kg, 162.56 cm) bs2 MDM: 01:17 Patient medically screened. ma2 03:32 Differential Diagnosis dehydrated unable to walk, needs care home placement . Data ma2 reviewed: vital signs, nurses notes. Counseling: I had a detailed discussion with the patient and/or guardian regarding: the historical points, exam findings, and any diagnostic results supporting the discharge/admit diagnosis, the presence of at least one elevated blood pressure reading (>120/80) during this emergency department visit, the need for outpatient follow up. Response to treatment: There is no appreciated change of the patient's symptoms at this time. 04/06 01:31 Order name: Basic Metabolic Panel; Complete Time: 03:57 ma2 04/06 01:31 Order name: CBC with Diff; Complete Time: 03:30 ma2 04/06 01:31 Order name: LFT's; Complete Time: 03:57 ma2 04/06 01:31 Order name: Magnesium; Complete Time: 03:57 ma2 04/06 01:31 Order name: NT PRO-BNP; Complete Time: 03:57 ma2 04/06 01:31 Order name: PT-INR; Complete Time: 02:51 ma2 04/06 01:31 Order name: Troponin (emerg Dept Use Only); Complete Time: 03:57 ma04/06 01:31 Order name: XRAY Chest (1 view); Complete Time: 09:13 ny2 04/06 02:24 Order name: CBC Smear Scan; Complete Time: 03:30 EDMS 04/06 03:11 Order name: Urine Dipstick-Ancillary; Complete Time: 03:19 EDMS 04/06 01:31 Order name: EKG; Complete Time: 01:32 ma2 04/06 01:31 Order name: Cardiac monitoring; Complete Time: 03:19 ma2 04/06 01:31 Order name: EKG - Nurse/Tech; Complete Time: 03:19 04/06 01:31 Order name: IV Saline Lock; Complete Time: 03:19 ma2 04/06 01:31 Order name: Labs collected and sent; Complete Time: 03:19 ny2 04/06 01:31 Order name: O2 Per Protocol; Complete Time: 03:19 ma2 04/06 01:31 Order name: O2 Sat Monitoring; Complete Time: 03:19 ma2 04/06 01:40 Order name: Urine Dipstick-Ancillary (obtain specimen); Complete Time: 03:19 ny2 04/06 02:42 Order name: Labs - recollect needed; Complete Time: 03:19 em Administered Medications: 02:03 Drug: Dilaudid (HYDROmorphone) 1 mg Route: IVP; Site: Other; bs2 03:41 Follow up: Response: No adverse reaction bs2 02:03 Drug: NS 0.9% 500 ml Route: IV; Rate: calculated rate; Site: Other; bs2 03:41 Follow up: IV Status: Completed infusion; IV Intake: 500ml bs2 02:03 Drug: Zofran (Ondansetron) 4 mg Route: IVP; Site: Other; bs2 03:41 Follow up: Response: No adverse reaction bs2 03:10 Drug: Dilaudid (HYDROmorphone) 1 mg Route: IVP; Site: Other; bs2 Disposition Summary: 04/06/21 03:33 Hospitalization Ordered Hospitalization Status: Observation ma2 Provider: Goldy Baker Condition: Stable ma2 Problem: new ma2 Symptoms: are unchanged ma2 Bed/Room Type: Standard ma2 Location: Telemetry/MedSurg (Inpatient)(04/06/21 12:29) bd Room Assignment: [facility](04/06/21 12:29) bd Diagnosis - Acute pain, not elsewhere classified - unable to walk ma2 Forms: - Medication Reconciliation Form ma2 - SBAR form ma2 Signatures: Dispatcher [employer] EDHeydi Travis Edgar, RN RN Ramon Baker MD MD rn Davi, Jimi, PROJECT DIRECTOR-C PROJECT DIRECTOR-Cla1 Stefanie Camarillo RN RN Liz Otoole MD MD ma2 Bridget Costa RN RN bs2 Corrections: (The following items were deleted from the chart) 03:48 03:33 Telemetry/MedSurg (observation) ma2 cg 03:48 03:33 ma2 cg 12:29 03:48 [facility] ER HOLD cg bd 12:29 03:48 ERHOLD- cg bd
[2021-04-06 03:41] LABS: ALT/SGPT 24 U/L (12-78); AST/SGOT 31 U/L (15-37); Albumin 2.5 g/dL (3.4-5.0); Alkaline Phosphatase 53 U/L (45-117); BUN Blood Urea Nitrogen 13 mg/dL (7-18); Bicarbonate 30 mmol/L (21-32); Bilirubin Direct 0.2 mg/dL (0-0.2); Bilirubin Total 0.7 mg/dL (0.2-1.0); Glucose Level 113 mg/dL (74-106); NT PRO-BNP 3564 pg/mL (<125); Potassium 3.8 mmol/L (3.5-5.1); Protein, Total 6.2 g/dL (6.4-8.2); Sodium Level 145 mmol/L (136-145); Troponin (Emerg Dept Use Only) < 0.02 ng/mL (0.0-0.045)
--- NOTE | 2021-04-06 04:29 | P.HP ---
Certification for Inpatient Patient admitted to: Observation With expected LOS: <2 Midnights Patient will require the following post-hospital care: None Practitioner: I am a practitioner with admitting privileges, knowledge of patient current condition, hospital course, and medical plan of care. Services: Services provided to patient in accordance with Admission requirements found in Title 42 Section 412.3 of the Code of Federal Regulations <Jimi Tomlinson - Last Filed: 04/06/21 04:22> Patient History Date of Service: 04/06/21 Reason for admission: Weakness, repeated falls History of Present Illness: 66-year-old female with history of COPD on home oxygen, CAD, hypertension, chronic atrial fibrillation on chronic anticoagulation, HIV, PVD, hyperlipidemia, obesity presents emergency department for weakness. Patient was discharged from the hospital approximately 12 hours ago after short stay from repeated falls and acute blood loss anemia. During admission patient was evaluated by physical therapy and attending physician and it was recommended that she go to SNF as she was still very weak and having repeated falls. Patient adamantly declined at that time and wished to go home. Patient was discharged home again approximately 12 hours ago, patient reports that ever since she has been at home she is unable to get up, cook, clean, bathe or even wash herself after bowel movement. Patient realized she is unable to care for herself adequately at home and return to the emergency department for further evaluation. Patient was again evaluated in the emergency department labs were significant for hemoglobin 8.4 hematocrit 27.6 MCV 74 GFR 83 glucose 113 BNP 3564 troponin negative patient had Covid test couple days ago that was negative. ED provider wishes to admit under observation for weakness, repeated falls. - Past Medical/Surgical History Diabetic: No -: HIV diag ~ [address] Yohan Cardenas in [place] -: CAD -: Bipolar disorder Dr Krause in [place] -: Hypertension -: COPD -: Tobacco abuse -: former Alcohol abuse -: Anemia likely of chronic disease -: Hyperlipidemia -: GERD with hiatal hernia -: Atrial fibrillation on chronic anticoagulation therapy -: Appendectomy -: Cholecystectomy -: left and right shoulder rotator cuff repair -: Right foot repair -: Right shoulder replacement -: left shoulder rotated cuff -: hiatal hernia repair february 2021 Psychosocial/ Personal History: She lives at home. She is not . - Family History Father -: Heart disease, Hypertension, Lung disease, GI disease, Stroke, Liver disease, Kidney disease Mother -: Hypertension, Lung disease, GI disease, Blood disorders, Other (see notes) Notes: Epilepsy, chronic pain - Social History Alcohol use: No CD- Drugs: No Caffeine use: Yes Place of Residence: Home <YongaleshiaJimi Aleshia Gregorio - Last Filed: 04/06/21 04:22> Date of Service: 04/06/21 - Social History Smoking Status: Current every day smoker <Goldy Baker - Last Filed: 04/06/21 13:46> Allergies fentanyl Allergy (Severe, Verified 03/31/21 11:11) Hives butorphanol tartrate [From Stadol] Allergy (Verified 03/31/21 11:11) confusion metoclopramide HCl [From Reglan] Allergy (Verified 03/31/21 11:11) Shortness of breath sulfamethoxazole [From Bactrim] Allergy (Verified 03/31/21 11:11) Hives/Rash trimethoprim [From Bactrim] Allergy (Verified 03/31/21 11:11) Hives/Rash Bactrim DS Allergy (Intermediate, Uncoded 03/31/21 11:11) Nausea/Vomiting Home Medications: Raltegravir Potassium [Isentress] 1 tab PO BID 02/28/12 Sertraline [Zoloft*] 2 tab PO DAILY 09/15/12 Metoprolol Tartrate 100 mg PO BID #60 tablet 02/03/20 Apixaban [Eliquis] 1 tab PO BID 07/30/20 Lisinopril [Zestril] 1 tab PO BID 07/30/20 Emtricitabine/Tenofov Alafenam [Descovy 200-25 mg Tablet] 1 tab PO DAILY 03/05/21 Hydralazine HCl 50 mg PO TID 03/05/21 Amlodipine Besylate 1 tab PO DAILY 03/30/21 Buspirone HCl 30 mg PO BID 03/30/21 Dexlansoprazole [Dexilant] 60 mg PO DAILY 03/30/21 Docusate/Senna [Senokot-S*] 1 tab PO DAILY PRN 03/30/21 Albuterol Inhaler [Ventolin Inhaler*] 2 puff IH BID 03/31/21 LORazepam [Lorazepam] 1 tab PO BID 03/31/21 buPROPion HCL [Bupropion Xl] 1 tab PO DAILY 04/03/21 Hydrocodone 5/APAP 325 [[place] 5/325*] 1 tab PO Q8H PRN 5 Days #15 tab 04/05/21 Review of Systems 10-point ROS is otherwise unremarkable General: Weakness, Malaise, Other (Chronic pain) <Jimi Tomlinson - Last Filed: 04/06/21 04:22> Physical Examination - Physical Exam General: Alert, In no apparent distress, Oriented x3, Obese HEENT: Atraumatic, PERRLA, Mucous membr. moist/pink, EOMI, Sclerae nonicteric Neck: Supple, 2+ carotid pulse no bruit, No LAD, Without JVD or thyroid abnormality Respiratory: Clear to auscultation bilaterally, Normal air movement Cardiovascular: Regular rate/rhythm, Normal S1 S2 Gastrointestinal: Normal bowel sounds, No tenderness Musculoskeletal: No tenderness, Other (Sutures noted to right wrist area patient is status post surgical repair of distal radius fracture) Integumentary: No rashes Neurological: Normal speech, Normal tone, Normal affect - Studies Laboratory Data (last 24 hrs) 04/06/21 03:07: Sodium 145, Potassium 3.8, BUN 13, Creatinine 0.71, Glucose 113 H, Magnesium 2.0, Total Bilirubin 0.7, AST 31, ALT 24, Alkaline Phosphatase 53 04/06/21 01:45: PT 11.9, INR 1.03 04/06/21 01:45: WBC 7.90 D, Hgb 8.4 L, Hct 27.6 L, Plt Count 191 <Jimi Tomlinson - Last Filed: 04/06/21 04:22> - Studies Laboratory Data (last 24 hrs) 04/06/21 03:07: Sodium 145, Potassium 3.8, BUN 13, Creatinine 0.71, Glucose 113 H, Magnesium 2.0, Total Bilirubin 0.7, AST 31, ALT 24, Alkaline Phosphatase 53 04/06/21 01:45: PT 11.9, INR 1.03 04/06/21 01:45: WBC 7.90 D, Hgb 8.4 L, Hct 27.6 L, Plt Count 191 <Goldy Baker - Last Filed: 04/06/21 13:46> Assessment and Plan - Plan Assessment: Medical debility, weakness, repeated falls Atrial fibrillation on chronic anticoagulation therapy Anemia of chronic disease/acute blood loss anemia COPD on chronic home oxygen therapy CAD HIV BPD Hyperlipidemia Morbid obesity GERD Plan: Medical debility, weakness, repeated falls: Physical therapy evaluation order in place, social work consult also in place. Patient amendable to skilled placement at this time, unable to care for self at home. Patient reports she is been unable to get up since she got home, unable to care for herself including days or even wipe after using the restroom. Patient significant other traveling for work no other assistance at home. Atrial fibrillation on chronic anticoagulation therapy: Monitor on telemetry, hold Eliquis for another 2 days restart 04/08/2021 given patient with recent multiple falls, acute blood loss anemia and recent need for transfusion. Anemia of chronic disease/acute blood loss anemia: Transfuse to maintain hemoglobin greater than 7 COPD on chronic home oxygen therapy: Continue to provide supplemental oxygen as needed, as needed nebulizer treatments CAD: Obtain an continue home medication HIV: Continue home medication BPD: Continue home medication Hyperlipidemia: Continue home medication Morbid obesity: Address lifestyle changes GERD: Continue home medication DVT PPX: SCD Code status: DNR Discharge Plan: [facility] Plan to discharge in: 48 Hours - Advance Directives Does patient have a Living Will: No Does patient have a Durable POA for Healthcare: No - Code Status/Comfort Care Code Status Assessed: Yes (DNR) Critical Care: No Time Spent Managing Pts Care (In Minutes): 55 <Jimi Tomlinson - Last Filed: 04/06/21 04:22> - Plan Patient seen and examined on rounds this morning. Agree with plan of care as noted above. Patient swelling ecchymosis appears improved compared to yesterday when she was discharged Despite the improved appearance, patient reports increase in pain "all over" Restart home meds Patient is amenable to SNF on discharge now, social insurance adviser consulted <Goldy Baker - Last Filed: 04/06/21 13:46>
[2021-04-06] MEDS ORDERED: HYDROCODONE/APAP 5/325 MG TAB PO PRN (06:28)
[2021-04-06] MEDS ORDERED: ONDANSETRON 4 MG/2 ML VIAL IV PRN (06:28)
--- NOTE | 2021-04-06 07:24 | RAD REPORT ---
EXAM DESCRIPTION: RAD - Chest Single View - 04/06/2021 1:51 am CLINICAL HISTORY: CONGESTION COMPARISON: Chest Single View dated 04/03/2021; Chest Single View dated 03/29/2021; Chest Single View dated 03/27/2021; Chest Single View dated 03/17/2021; Chest Single View dated 04/07/2020 FINDINGS: Lines: None. Lungs: Vascular congestion. Pleural: No significant pleural effusions or pneumothorax. Cardiac: Cardiomegaly. Bones: No acute fractures. Shoulder arthroplasties. Other: IMPRESSION: Pulmonary vascular congestion. Cardiomegaly.
[2021-04-06] MEDS ORDERED: HYDROCODONE/APAP 5/325 MG TAB ONE (09:00)
[2021-04-06] MEDS ORDERED: DOCUSATE NA/SENNA CONC 1 TAB PO PRN (11:58)
[2021-04-06] MEDS ORDERED: METOPROLOL TAR 50 MG TAB ONE (12:16)
[2021-04-06] MEDS ORDERED: LORAZEPAM 1 MG TABLET ONE (12:16)
[2021-04-06] MEDS ORDERED: AMLODIPINE 10 MG TAB ONE (12:17)
[2021-04-06] MEDS ORDERED: HYDROCODONE/APAP 10/325 TAB ONE (12:17)
[2021-04-06] MEDS ORDERED: PANTOPRAZOLE 40MG TABLET PO ONE (12:17)
[2021-04-06] MEDS: AMLODIPINE 10 MG TAB PO SCH (12:33)
[2021-04-06] MEDS: METOPROLOL TAR 50 MG TAB PO SCH ×2 (12:35→20:44)
[2021-04-06] MEDS: PANTOPRAZOLE 40MG TABLET PO SCH (12:35)
[2021-04-06] MEDS: HYDROCODONE/APAP 10/325 TAB PO PRN ×3 (12:36→23:05)
[2021-04-06] MEDS: LORAZEPAM 1 MG TABLET PO PRN (14:09)
[2021-04-06] MEDS: HYDRALAZINE HCL 25 MG TABLET PO SCH ×2 (14:10→20:44)
[2021-04-06] MEDS: BUSPIRONE HCL 15 MG TABLET PO SCH (20:44)
[2021-04-06] MEDS: ISENTRESS 400 MG PO SCH (20:45)
[2021-04-06] MEDS: ALBUTEROL IH SCH (21:00)
[2021-04-06] MEDS: [UNRECOGNIZED DRUG - OTHER] IH SCH (21:00)
[2021-04-06] MEDS ORDERED: FAMOTIDINE 20 MG TAB PO ONE (22:41)
[2021-04-07] MEDS: HYDROCODONE/APAP 10/325 TAB PO PRN ×3 (05:28→17:47)
[2021-04-07 05:57] LABS: Absolute Lymphocytes (CBC) 0.9 K/uL (0.7-4.9); Basophils % 0.1 % (0-1.3); Hematocrit 27.7 % (36.0-45.0); Lymphocytes % 13.5 % (15.3-44.8); MPV 8.1 fL (7.6-11.3); RBC Red Blood Cell Count 3.72 M/uL (3.86-4.86)
[2021-04-07 06:11] LABS: Albumin 2.4 g/dL (3.4-5.0); Bilirubin Total 0.6 mg/dL (0.2-1.0); Potassium 3.7 mmol/L (3.5-5.1); Protein, Total 6.1 g/dL (6.4-8.2)
[2021-04-07 08:30] LABS: Anisocytosis 2+; Blood Morphology Comment NOTED (NOT SEEN); Platelet Estimate ADEQ; Polychromasia 1+
[2021-04-07] MEDS: ALBUTEROL IH SCH ×3 (09:00→21:00)
[2021-04-07] MEDS: TENOFOV ALAFENAM PO SCH (09:00)
[2021-04-07] MEDS ORDERED: POTASSIUM CL SA 10 MEQ TAB PO ONE (09:00)
[2021-04-07] MEDS: ISENTRESS 400 MG PO SCH ×2 (09:00→19:55)
[2021-04-07] MEDS: [UNRECOGNIZED DRUG - OTHER] IH SCH ×3 (09:00→21:00)
[2021-04-07] MEDS: EMTRICITABINE PO SCH (09:00)
[2021-04-07] MEDS ORDERED: HOME MED 1 EA UNK (Dexlansoprazole [Dexilant] 30 MG Cap.Dr.Bp) PO SCH (09:00)
[2021-04-07] MEDS: AMLODIPINE 10 MG TAB PO SCH (09:32)
[2021-04-07] MEDS: METOPROLOL TAR 50 MG TAB PO SCH ×2 (09:32→19:54)
[2021-04-07] MEDS: SERTRALINE HCL 100 MG TAB PO SCH (09:32)
[2021-04-07] MEDS: LORAZEPAM 1 MG TABLET PO PRN (09:32)
[2021-04-07] MEDS: BUPROPION HCL XL 150 MG TAB PO SCH (09:32)
[2021-04-07] MEDS: BUSPIRONE HCL 15 MG TABLET PO SCH ×2 (09:32→19:54)
[2021-04-07] MEDS: HYDRALAZINE HCL 25 MG TABLET PO SCH ×3 (09:33→19:54)
[2021-04-07] MEDS: PANTOPRAZOLE 40MG TABLET PO SCH (09:33)
[2021-04-07] MEDS ORDERED: NA CHLORIDE 0.9% 250 ML IV SCH (13:00)
--- NOTE | 2021-04-07 14:43 | P.PN ---
Subjective Date of Service: 04/07/21 Chief Complaint: Weakness, repeated falls Patient complaining of pain all over. She reports easy fatigability. Hemoglobin is at 8. Physical Examination - Vital Signs Temperature: 97.1 F Blood Pressure: 125/63 Pulse: 62 Respirations: 18 Pulse Ox (%): 97 - Physical Exam General: Alert, In no apparent distress, Oriented x3 HEENT: Mucous membr. moist/pink Neck: JVD not distended Respiratory: Clear to auscultation bilaterally, Normal air movement Cardiovascular: Regular rate/rhythm, Normal S1 S2, Edema (Bilateral feet) Gastrointestinal: Soft and benign, Non-distended Musculoskeletal: No swelling Integumentary: Other (Sutured laceration right forearm and wrist, multiple skin tears on the left arm) Neurological: Normal speech, Normal strength at 5/5 x4 extr Assessment And Plan - Current Problems (Diagnosis) (1) Chronic pain Current Visit: Yes Status: Acute (2) Attacks of weakness Current Visit: No Status: Active (3) GERD (gastroesophageal reflux disease) Current Visit: No Status: Acute (4) Anemia of chronic disease Current Visit: No Status: Chronic - Plan Medical debility, weakness, repeated falls Atrial fibrillation on chronic anticoagulation therapy Symptomatic anemia COPD on chronic home oxygen therapy CAD HIV BPD Hyperlipidemia Morbid obesity GERD: Plan: Patient with symptomatic anemia. Will transfuse 1 unit PRBC. PT to evaluate. Patient is agreeing to go to skilled rehab. Heart rate is stable Continue home medications.
[2021-04-07] MEDS: TRAMADOL HCL 50 MG TAB PO PRN (19:54)
[2021-04-08] MEDS: HYDROCODONE/APAP 10/325 TAB PO PRN ×4 (00:10→20:14)
[2021-04-08] MEDS: LORAZEPAM 1 MG TABLET PO PRN (02:05)
[2021-04-08] MEDS: TRAMADOL HCL 50 MG TAB PO PRN ×3 (02:05→17:50)
[2021-04-08 05:59] LABS: Absolute Lymphocytes (CBC) 0.9 K/uL (0.7-4.9); Basophils % 0.5 % (0-1.3); Hematocrit 28.2 % (36.0-45.0); MPV 7.1 fL (7.6-11.3); RBC Red Blood Cell Count 3.75 M/uL (3.86-4.86)
[2021-04-08 06:18] LABS: Albumin 2.3 g/dL (3.4-5.0); Bilirubin Total 0.6 mg/dL (0.2-1.0); Potassium 3.5 mmol/L (3.5-5.1)
[2021-04-08] MEDS: EMTRICITABINE PO SCH (07:58)
[2021-04-08] MEDS: METOPROLOL TAR 50 MG TAB PO SCH ×2 (07:58→20:14)
[2021-04-08] MEDS: AMLODIPINE 10 MG TAB PO SCH (07:58)
[2021-04-08] MEDS: SERTRALINE HCL 100 MG TAB PO SCH (07:58)
[2021-04-08] MEDS: BUSPIRONE HCL 15 MG TABLET PO SCH ×2 (07:58→20:13)
[2021-04-08] MEDS: BUPROPION HCL XL 150 MG TAB PO SCH (07:58)
[2021-04-08] MEDS: TENOFOV ALAFENAM PO SCH (07:58)
[2021-04-08] MEDS: HYDRALAZINE HCL 25 MG TABLET PO SCH ×3 (07:59→20:14)
[2021-04-08] MEDS: ALBUTEROL IH SCH ×2 (07:59→20:17)
[2021-04-08] MEDS: ISENTRESS 400 MG PO SCH ×2 (07:59→20:16)
[2021-04-08] MEDS: [UNRECOGNIZED DRUG - OTHER] IH SCH ×2 (07:59→20:17)
[2021-04-08] MEDS: PANTOPRAZOLE 40MG TABLET PO SCH (07:59)
[2021-04-08] MEDS ORDERED: POTASSIUM CL SA 10 MEQ TAB PO ONE (09:00)
[2021-04-08] MEDS ORDERED: ONDANSETRON 4 MG/2 ML VIAL IV ONE (09:40)
[2021-04-08] MEDS ORDERED: ONDANSETRON 4 MG (ODT) TAB PO ONE (09:41)
[2021-04-08] MEDS ORDERED: NAPROXEN 250 MG TAB PO ONE (11:58)
--- NOTE | 2021-04-08 12:35 | P.PN ---
Subjective Date of Service: 04/08/21 Chief Complaint: Weakness, repeated falls Patient complaining of uncontrolled pain, worse in the left knee. Status post 1 unit PRBC transfusion yesterday Physical Examination - Vital Signs Temperature: 96.9 F Blood Pressure: 148/73 Pulse: 62 Respirations: 18 Pulse Ox (%): 100 - Physical Exam General: Alert, Mild distress (Due to pain) HEENT: Mucous membr. moist/pink Neck: Supple, JVD not distended Respiratory: Clear to auscultation bilaterally, Normal air movement Cardiovascular: Regular rate/rhythm, Normal S1 S2, Edema (Bilateral upper and lower extremities) Gastrointestinal: Normal bowel sounds, Soft and benign, Non-distended, No tenderness Musculoskeletal: Swelling (Left knee) Integumentary: Other (Sutured wound-right wrist) Neurological: Normal strength at 5/5 x4 extr Assessment And Plan - Current Problems (Diagnosis) (1) Chronic pain Current Visit: Yes Status: Acute (2) Attacks of weakness Current Visit: No Status: Active (3) GERD (gastroesophageal reflux disease) Current Visit: No Status: Acute (4) Anemia of chronic disease Current Visit: No Status: Chronic (5) History of fracture of radius Current Visit: Yes Status: Acute - Plan Medical debility, weakness, repeated falls Atrial fibrillation on chronic anticoagulation therapy Symptomatic anemia COPD on chronic home oxygen therapy CAD HIV BPD Hyperlipidemia Morbid obesity GERD: Plan: Patient with symptomatic anemia. Status post 1 unit PRBC transfusion. Patient complaining of pain all over. Continue [place] for pain. Trial of Naprosyn. Patient ambulated with a walker with standby assist. Patient is agreeing to go to skilled rehab. Heart rate is stable Continue home medications.
[2021-04-09] MEDS: HYDROCODONE/APAP 10/325 TAB PO PRN ×3 (06:27→18:30)
[2021-04-09 06:48] LABS: Potassium 4.1 mmol/L (3.5-5.1)
[2021-04-09 08:28] LABS: Hematocrit 30.2 % (36.0-45.0)
[2021-04-09] MEDS: LORAZEPAM 1 MG TABLET PO PRN ×2 (08:31→20:07)
[2021-04-09] MEDS: SERTRALINE HCL 100 MG TAB PO SCH (08:31)
[2021-04-09] MEDS: AMLODIPINE 10 MG TAB PO SCH (08:31)
[2021-04-09] MEDS: BUPROPION HCL XL 150 MG TAB PO SCH (08:31)
[2021-04-09] MEDS: PANTOPRAZOLE 40MG TABLET PO SCH (08:31)
[2021-04-09] MEDS: HYDRALAZINE HCL 25 MG TABLET PO SCH ×3 (08:32→20:06)
[2021-04-09] MEDS: METOPROLOL TAR 50 MG TAB PO SCH ×3 (08:34→20:06)
[2021-04-09] MEDS: BUSPIRONE HCL 15 MG TABLET PO SCH ×2 (08:35→21:00)
[2021-04-09] MEDS: TENOFOV ALAFENAM PO SCH (08:35)
[2021-04-09] MEDS: EMTRICITABINE PO SCH (08:35)
[2021-04-09] MEDS: ISENTRESS 400 MG PO SCH ×2 (08:37→20:02)
[2021-04-09] MEDS: ALBUTEROL IH SCH ×2 (08:40→20:05)
[2021-04-09] MEDS: [UNRECOGNIZED DRUG - OTHER] IH SCH ×2 (08:40→20:05)
--- NOTE | 2021-04-09 11:34 | P.PN ---
Subjective Date of Service: 04/09/21 Chief Complaint: Weakness, repeated falls Patient has no new complaint. She has been tolerating physical therapy. Hemoglobin is stable. Physical Examination - Vital Signs Temperature: 97.1 F Blood Pressure: 160/76 Pulse: 60 Respirations: 20 Pulse Ox (%): 100 Assessment And Plan - Current Problems (Diagnosis) (1) Chronic pain Current Visit: Yes Status: Acute (2) Attacks of weakness Current Visit: No Status: Active (3) GERD (gastroesophageal reflux disease) Current Visit: No Status: Acute (4) Anemia of chronic disease Current Visit: No Status: Chronic (5) History of fracture of radius Current Visit: Yes Status: Acute - Plan Physical examination: General: Alert, NAD HEENT: Mucous membr. moist/pink Neck: Supple, JVD not distended Respiratory: Clear to auscultation bilaterally, Normal air movement Cardiovascular: Regular rate/rhythm, Normal S1 S2, Edema (Bilateral upper and lower extremities) Gastrointestinal: Normal bowel sounds, Soft and benign, Non-distended, No tenderness Musculoskeletal: Swelling (Left knee) Integumentary: Other (Sutured wound-right wrist) Neurological: Normal strength at 5/5 x4 extr Diagnosis Debility, repeated falls Atrial fibrillation on chronic anticoagulation therapy Symptomatic anemia COPD on chronic home oxygen therapy CAD HIV BPD Hyperlipidemia Morbid obesity GERD: Plan: Patient with symptomatic anemia. Status post 1 unit PRBC transfusion. Posttransfusion hemoglobin is stable Continue [place] for pain. Naprosyn as needed. Patient ambulated with a walker with standby assist. Patient refused to go to SNF. She wants to go to acute rehab. Social service has initiated acute rehab placement pending insurance authorization. Continue home medications.
[2021-04-09] MEDS: TRAMADOL HCL 50 MG TAB PO PRN ×2 (15:26→21:08)
[2021-04-10] MEDS: HYDROCODONE/APAP 10/325 TAB PO PRN ×5 (00:19→23:36)
[2021-04-10] MEDS: TRAMADOL HCL 50 MG TAB PO PRN ×2 (03:06→09:26)
[2021-04-10] MEDS: [UNRECOGNIZED DRUG - OTHER] IH SCH ×2 (09:00→20:06)
[2021-04-10] MEDS: ALBUTEROL IH SCH ×2 (09:00→20:06)
[2021-04-10] MEDS: ISENTRESS 400 MG PO SCH ×2 (09:00→19:19)
[2021-04-10] MEDS: EMTRICITABINE PO SCH (09:24)
[2021-04-10] MEDS: BUSPIRONE HCL 15 MG TABLET PO SCH ×2 (09:24→20:07)
[2021-04-10] MEDS: TENOFOV ALAFENAM PO SCH (09:24)
[2021-04-10] MEDS: METOPROLOL TAR 50 MG TAB PO SCH ×2 (09:25→20:06)
[2021-04-10] MEDS: BUPROPION HCL XL 150 MG TAB PO SCH (09:25)
[2021-04-10] MEDS: HYDRALAZINE HCL 25 MG TABLET PO SCH ×3 (09:26→20:06)
[2021-04-10] MEDS: SERTRALINE HCL 100 MG TAB PO SCH (09:26)
[2021-04-10] MEDS: LORAZEPAM 1 MG TABLET PO PRN (09:26)
[2021-04-10] MEDS: PANTOPRAZOLE 40MG TABLET PO SCH (09:26)
[2021-04-10] MEDS: AMLODIPINE 10 MG TAB PO SCH (09:26)
--- NOTE | 2021-04-10 11:03 | P.PN ---
Subjective Date of Service: 04/10/21 Chief Complaint: Weakness, repeated falls Patient has no new complaint. She has been tolerating physical therapy. She still complaining of pain all over. She states pain is worse in her left knee. Physical Examination - Vital Signs Temperature: 97.0 F Blood Pressure: 176/74 Pulse: 69 Respirations: 21 Pulse Ox (%): 99 Assessment And Plan - Current Problems (Diagnosis) (1) Chronic pain Current Visit: Yes Status: Acute (2) Attacks of weakness Current Visit: No Status: Active (3) GERD (gastroesophageal reflux disease) Current Visit: No Status: Acute (4) Anemia of chronic disease Current Visit: No Status: Chronic (5) History of fracture of radius Current Visit: Yes Status: Acute - Plan Physical examination: General: Alert, NAD HEENT: Mucous membr. moist/pink Neck: Supple, JVD not distended Respiratory: Clear to auscultation bilaterally, Normal air movement Cardiovascular: Regular rate/rhythm, Normal S1 S2, Edema (Bilateral upper and lower extremities) Gastrointestinal: Normal bowel sounds, Soft and benign, Non-distended, No tenderness Musculoskeletal: Left knee swelling is improving. Integumentary: Other (Sutured wound-right wrist) Neurological: Normal strength at 5/5 x4 extr Diagnosis Debility, repeated falls Atrial fibrillation on chronic anticoagulation therapy Symptomatic anemia COPD on chronic home oxygen therapy CAD HIV BPD Hyperlipidemia Morbid obesity GERD: Plan: Status post 1 unit PRBC transfusion. Posttransfusion hemoglobin is stable Continue [place] for pain. Naprosyn as needed. Patient ambulated with a walker with standby assist. Patient now agrees to go to SNF. Awaiting insurance authorization for SNF placement. Continue home medications.
[2021-04-10] MEDS: NAPROXEN 250 MG TAB PO PRN (20:05)
[2021-04-11] MEDS: HYDROCODONE/APAP 10/325 TAB PO PRN ×3 (05:58→23:51)
[2021-04-11 06:00] LABS: Absolute Lymphocytes (CBC) 0.8 K/uL (0.7-4.9); Basophils % 0.3 % (0-1.3); Hematocrit 31.9 % (36.0-45.0); Lymphocytes % 16.3 % (15.3-44.8); RBC Red Blood Cell Count 4.13 M/uL (3.86-4.86)
[2021-04-11] MEDS: NAPROXEN 250 MG TAB PO PRN ×2 (08:58→19:59)
[2021-04-11] MEDS: METOPROLOL TAR 50 MG TAB PO SCH ×2 (08:59→19:59)
[2021-04-11] MEDS: BUSPIRONE HCL 15 MG TABLET PO SCH ×2 (09:00→20:05)
[2021-04-11] MEDS: SERTRALINE HCL 100 MG TAB PO SCH (09:00)
[2021-04-11] MEDS: HYDRALAZINE HCL 25 MG TABLET PO SCH ×3 (09:01→19:59)
[2021-04-11] MEDS: PANTOPRAZOLE 40MG TABLET PO SCH (09:01)
[2021-04-11] MEDS: ALBUTEROL IH SCH ×2 (09:01→19:58)
[2021-04-11] MEDS: BUPROPION HCL XL 150 MG TAB PO SCH (09:01)
[2021-04-11] MEDS: [UNRECOGNIZED DRUG - OTHER] IH SCH ×2 (09:01→19:58)
[2021-04-11] MEDS: ISENTRESS 400 MG PO SCH ×3 (09:02→20:02)
[2021-04-11] MEDS: TENOFOV ALAFENAM PO SCH (09:02)
[2021-04-11] MEDS: EMTRICITABINE PO SCH (09:02)
[2021-04-11] MEDS: AMLODIPINE 10 MG TAB PO SCH (09:03)
--- NOTE | 2021-04-11 11:46 | P.PN ---
Subjective Date of Service: 04/11/21 Chief Complaint: Weakness, repeated falls Patient has no new complaint. She has been tolerating physical therapy. Physical Examination - Vital Signs Temperature: 97.5 F Blood Pressure: 145/78 Pulse: 66 Respirations: 20 Pulse Ox (%): 100 Assessment And Plan - Current Problems (Diagnosis) (1) Chronic pain Current Visit: Yes Status: Acute (2) Attacks of weakness Current Visit: No Status: Active (3) GERD (gastroesophageal reflux disease) Current Visit: No Status: Acute (4) Anemia of chronic disease Current Visit: No Status: Chronic (5) History of fracture of radius Current Visit: Yes Status: Acute - Plan Physical examination: General: Alert, NAD HEENT: Mucous membr. moist/pink Neck: Supple, JVD not distended Respiratory: Clear to auscultation bilaterally, Normal air movement Cardiovascular: Regular rate/rhythm, Normal S1 S2, Edema (Bilateral upper and lower extremities) Gastrointestinal: Normal bowel sounds, Soft and benign, Non-distended, No tenderness Musculoskeletal: Left knee swelling is improving. Integumentary: Sutured wound-right wrist Neurological: Normal strength at 5/5 x4 extr Diagnosis Debility, repeated falls Atrial fibrillation on chronic anticoagulation therapy Symptomatic anemia COPD on chronic home oxygen therapy CAD HIV BPD Hyperlipidemia Morbid obesity GERD: Plan: Status post 1 unit PRBC transfusion. Posttransfusion hemoglobin is stable [place] prn for pain. Naprosyn as needed. Patient ambulating with a walker with standby assist. Disposition to SNF Awaiting insurance authorization for SNF placement. Continue home medications.
[2021-04-11] MEDS: LORAZEPAM 1 MG TABLET PO PRN (17:56)
[2021-04-12] MEDS: LORAZEPAM 1 MG TABLET PO PRN (01:42)
[2021-04-12] MEDS: HYDROCODONE/APAP 10/325 TAB PO PRN ×3 (05:30→21:01)
[2021-04-12 07:41] LABS: Potassium 3.7 mmol/L (3.5-5.1)
[2021-04-12] MEDS: BUSPIRONE HCL 15 MG TABLET PO SCH ×2 (08:36→22:20)
[2021-04-12] MEDS: NAPROXEN 250 MG TAB PO PRN ×2 (08:37→17:08)
[2021-04-12] MEDS: BUPROPION HCL XL 150 MG TAB PO SCH (08:37)
[2021-04-12] MEDS: SERTRALINE HCL 100 MG TAB PO SCH (08:37)
[2021-04-12] MEDS: METOPROLOL TAR 50 MG TAB PO SCH ×2 (08:37→22:21)
[2021-04-12] MEDS: PANTOPRAZOLE 40MG TABLET PO SCH (08:37)
[2021-04-12] MEDS: HYDRALAZINE HCL 25 MG TABLET PO SCH ×3 (08:37→22:20)
[2021-04-12] MEDS: [UNRECOGNIZED DRUG - OTHER] IH SCH ×2 (08:38→21:00)
[2021-04-12] MEDS: ALBUTEROL IH SCH ×2 (08:38→21:00)
[2021-04-12] MEDS: AMLODIPINE 10 MG TAB PO SCH (08:38)
[2021-04-12] MEDS: ISENTRESS 400 MG PO SCH ×2 (08:39→22:20)
[2021-04-12] MEDS: TENOFOV ALAFENAM PO SCH (08:39)
[2021-04-12] MEDS: EMTRICITABINE PO SCH (08:39)
[2021-04-12] MEDS ORDERED: POTASSIUM CL SA 10 MEQ TAB PO ONE (09:00)
--- NOTE | 2021-04-12 12:28 | P.PN ---
Subjective Date of Service: 04/12/21 Chief Complaint: Weakness, repeated falls Patient complaining of generalized body pains. Physical Examination - Vital Signs Temperature: 97.4 F Blood Pressure: 159/71 Pulse: 65 Respirations: 16 Pulse Ox (%): 99 Assessment And Plan - Current Problems (Diagnosis) (1) Chronic pain Current Visit: Yes Status: Acute (2) Attacks of weakness Current Visit: No Status: Active (3) GERD (gastroesophageal reflux disease) Current Visit: No Status: Acute (4) Anemia of chronic disease Current Visit: No Status: Chronic (5) History of fracture of radius Current Visit: Yes Status: Acute - Plan Physical examination: General: Alert, NAD HEENT: Mucous membr. moist/pink Neck: Supple, JVD not distended Respiratory: Clear to auscultation bilaterally, Normal air movement Cardiovascular: Regular rate/rhythm, Normal S1 S2, Edema (Bilateral upper and lower extremities) Gastrointestinal: Normal bowel sounds, Soft and benign, Non-distended, No tenderness Musculoskeletal: Left knee swelling is improving. Integumentary: Sutured wound-right wrist healing well. No discharge. Neurological: Normal strength at 5/5 x4 extr Diagnosis Debility, repeated falls Atrial fibrillation on chronic anticoagulation therapy Symptomatic anemia COPD on chronic home oxygen therapy CAD HIV BPD Hyperlipidemia Morbid obesity GERD: Plan: Status post 1 unit PRBC transfusion. Posttransfusion hemoglobin is stable [place] prn for pain. Naprosyn as needed. Patient ambulating with a walker with standby assist. Continue PT Disposition to SNF Awaiting insurance authorization for SNF placement. Continue home medications.
[2021-04-13] MEDS: HYDROCODONE/APAP 10/325 TAB PO PRN ×4 (03:17→23:02)
[2021-04-13] MEDS: FUROSEMIDE 40 MG/4 ML VIAL IV SCH ×2 (09:00→09:42)
[2021-04-13] MEDS: METOPROLOL TAR 50 MG TAB PO SCH ×2 (09:42→21:20)
[2021-04-13] MEDS: PANTOPRAZOLE 40MG TABLET PO SCH (09:42)
[2021-04-13] MEDS: HYDRALAZINE HCL 25 MG TABLET PO SCH ×3 (09:42→21:20)
[2021-04-13] MEDS: AMLODIPINE 10 MG TAB PO SCH (09:42)
[2021-04-13] MEDS: SERTRALINE HCL 100 MG TAB PO SCH (09:42)
[2021-04-13] MEDS: BUSPIRONE HCL 15 MG TABLET PO SCH ×2 (09:42→21:20)
[2021-04-13] MEDS: BUPROPION HCL XL 150 MG TAB PO SCH (09:43)
[2021-04-13] MEDS: EMTRICITABINE PO SCH (09:44)
[2021-04-13] MEDS: ISENTRESS 400 MG PO SCH ×2 (09:44→21:22)
[2021-04-13] MEDS: TENOFOV ALAFENAM PO SCH (09:44)
[2021-04-13] MEDS: [UNRECOGNIZED DRUG - OTHER] IH SCH ×2 (09:45→21:00)
[2021-04-13] MEDS: ALBUTEROL IH SCH ×2 (09:45→21:00)
--- NOTE | 2021-04-13 14:51 | P.PN ---
Subjective Date of Service: 04/13/21 Chief Complaint: Weakness, repeated falls Patient complaining of shortness of breath and lower extremity swelling. Physical Examination - Vital Signs Temperature: 97.7 F Blood Pressure: 171/79 Pulse: 66 Respirations: 20 Pulse Ox (%): 96 Assessment And Plan - Current Problems (Diagnosis) (1) Chronic pain Current Visit: Yes Status: Acute (2) Attacks of weakness Current Visit: No Status: Active (3) GERD (gastroesophageal reflux disease) Current Visit: No Status: Acute (4) Anemia of chronic disease Current Visit: No Status: Chronic (5) History of fracture of radius Current Visit: Yes Status: Acute - Plan Physical examination: General: Alert, NAD HEENT: Mucous membr. moist/pink Neck: Supple, JVD not distended Respiratory: Clear to auscultation bilaterally, Normal air movement Cardiovascular: Regular rate/rhythm, Normal S1 S2, Edema bilateral lower extremities Gastrointestinal: Normal bowel sounds, Soft and benign, Non-distended, No tenderness Musculoskeletal: Left knee swelling is improving. Integumentary: Sutured wound-right wrist healing well. No discharge. Neurological: Normal strength at 5/5 x4 extr Diagnosis Debility, repeated falls Atrial fibrillation on chronic anticoagulation therapy Symptomatic anemia COPD exacerbation. Chronic respiratory failure with hypoxia. CAD HIV BPD Hyperlipidemia Morbid obesity GERD: Acute diastolic heart failure Plan: Status post 1 unit PRBC transfusion. Posttransfusion hemoglobin is stable. [place] prn for pain. Discontinue Naprosyn due to peripheral edema. Treat diastolic heart failure with oral Lasix. No IV access. Start bronchodilators. Patient ambulating with a walker with standby assist. Continue PT Disposition to SNF Awaiting insurance authorization for SNF placement. Continue home medications.
[2021-04-13] MEDS: FUROSEMIDE 40 MG TABLET PO SCH ×2 (15:50→17:00)
[2021-04-13 16:28] LABS: Magnesium 2.5 mg/dL (1.8-2.4); Phosphorus 2.7 mg/dL (2.5-4.9)
[2021-04-13] MEDS: ALBUTEROL 2.5 MG/3 ML NEB SOL NEB PRN (20:08)
[2021-04-14] MEDS: HYDROCODONE/APAP 10/325 TAB PO PRN ×3 (06:19→20:45)
[2021-04-14 06:29] LABS: Absolute Lymphocytes (CBC) 0.9 K/uL (0.7-4.9); Basophils % 0.6 % (0-1.3); Hematocrit 27.5 % (36.0-45.0); MPV 7.1 fL (7.6-11.3); RBC Red Blood Cell Count 3.64 M/uL (3.86-4.86)
[2021-04-14 06:37] VITALS: BMI 41.8
[2021-04-14 06:41] LABS: BUN Blood Urea Nitrogen 16 mg/dL (7-18); Bicarbonate 32 mmol/L (21-32); Glucose Level 132 mg/dL (74-106); Magnesium 2.3 mg/dL (1.8-2.4); Potassium 3.5 mmol/L (3.5-5.1); Sodium Level 146 mmol/L (136-145)
[2021-04-14] MEDS ORDERED: POTASSIUM CL SA 10 MEQ TAB PO ONE (09:00)
[2021-04-14] MEDS: ISENTRESS 400 MG PO SCH ×2 (09:37→20:42)
[2021-04-14] MEDS: EMTRICITABINE PO SCH (09:38)
[2021-04-14] MEDS: TENOFOV ALAFENAM PO SCH (09:38)
[2021-04-14] MEDS: ALBUTEROL IH SCH ×2 (09:39→20:46)
[2021-04-14] MEDS: [UNRECOGNIZED DRUG - OTHER] IH SCH ×2 (09:39→20:46)
[2021-04-14] MEDS: BUSPIRONE HCL 15 MG TABLET PO SCH (09:40)
[2021-04-14] MEDS: AMLODIPINE 10 MG TAB PO SCH (09:41)
[2021-04-14] MEDS: HYDRALAZINE HCL 25 MG TABLET PO SCH ×3 (09:41→20:45)
[2021-04-14] MEDS: PANTOPRAZOLE 40MG TABLET PO SCH (09:42)
[2021-04-14] MEDS: BUPROPION HCL XL 150 MG TAB PO SCH (09:42)
[2021-04-14] MEDS: METOPROLOL TAR 50 MG TAB PO SCH ×2 (09:42→20:44)
[2021-04-14] MEDS: FUROSEMIDE 40 MG TABLET PO SCH (09:43)
[2021-04-14] MEDS: SERTRALINE HCL 100 MG TAB PO SCH (09:47)
[2021-04-14] MEDS: LORAZEPAM 1 MG TABLET PO SCH ×2 (10:18→20:45)
[2021-04-14 12:28] LABS: Hematocrit 28.6 % (36.0-45.0); MPV 7.6 fL (7.6-11.3)
[2021-04-14 13:08] LABS: Anisocytosis 3+; Blood Morphology Comment NOTED (NOT SEEN); Platelet Estimate ADEQ; White Blood Cell Scan OK (OK)
[2021-04-14 13:09] LABS: Hypochromasia 1+; Poikilocytosis 1+; Polychromasia 1+
[2021-04-14] MEDS: ALBUTEROL 2.5 MG/3 ML NEB SOL NEB PRN ×2 (13:24→20:10)
--- NOTE | 2021-04-14 14:31 | P.PN ---
Date of Service: 04/14/21 Subjective: No acute events overnight, patient reports breathing more comfortably, swelling has improved, but continues with left knee pain and swelling Denies fever ROS: 10 point ROS as noted above, otherwise negative Physical exam GEN: Alert, oriented, NAD HEENT: Normal conjunctiva, sclera anicteric CV: Regular rate and rhythm, trace edema Pulm: Nonlabored respiration on 2 L nasal cannula, expiratory wheeze ABD: Soft, nontender, nondistended MSK: L knee swelling / tenderness Neuro: Normal speech, normal affect Problem List Debility, repeated falls Atrial fibrillation on chronic anticoagulation therapy Symptomatic anemia, of chronic disease acute on chronic COPD exacerbation. Acute on chronic diastolic heart failure Chronic respiratory failure with hypoxia. CAD HIV BPD Hyperlipidemia Morbid obesity GERD: s/p 1u PRBC Hgb stable since transfusion [place] prn for pain continue lasix continue bronchodilators. Patient ambulating with a walker with standby assist. Continue PT Disposition to SNF Awaiting insurance authorization for SNF placement. Continue home medications. Time Spent Managing Pts Care (In Minutes): 35
[2021-04-14] MEDS ORDERED: FUROSEMIDE 40 MG TABLET PO SCH (17:00)
[2021-04-14] MEDS: BUSPIRONE HCL 5 MG TABLET PO SCH (20:44)
[2021-04-14 20:50] LABS: Ferritin 62.3 ng/mL (8-388)
[2021-04-14 22:15] VITALS: O2SAT 97
[2021-04-15] MEDS: HYDROCODONE/APAP 10/325 TAB PO PRN (04:58)
[2021-04-15 06:08] LABS: Hematocrit 27.9 % (36.0-45.0); MPV 7.1 fL (7.6-11.3); RBC Red Blood Cell Count 3.68 M/uL (3.86-4.86)
--- NOTE | 2021-04-15 06:09 | P.PN ---
Date of Service: 04/15/21 Subjective: ROS: 10 point ROS as noted above, otherwise negative Physical exam GEN: Alert, oriented, NAD HEENT: Normal conjunctiva, sclera anicteric CV: Regular rate and rhythm, trace edema Pulm: Nonlabored respiration on 2 L nasal cannula, expiratory wheeze ABD: Soft, nontender, nondistended MSK: L knee swelling / tenderness Neuro: Normal speech, normal affect Problem List Debility, repeated falls Atrial fibrillation on chronic anticoagulation therapy Symptomatic anemia, of chronic disease acute on chronic COPD exacerbation. Acute on chronic diastolic heart failure Chronic respiratory failure with hypoxia. CAD HIV BPD Hyperlipidemia Morbid obesity GERD: s/p 1u PRBC Hgb stable since transfusion [place] prn for pain continue lasix continue bronchodilators. Patient ambulating with a walker with standby assist. Continue PT Disposition to SNF Awaiting insurance authorization for SNF placement. Continue home medications. Time Spent Managing Pts Care (In Minutes): 35
[2021-04-15 06:14] LABS: Magnesium 2.1 mg/dL (1.8-2.4); Potassium 3.4 mmol/L (3.5-5.1)
[2021-04-15 06:25] LABS: Anisocytosis 3+; Blood Morphology Comment NOTED (NOT SEEN); Platelet Estimate ADEQ; White Blood Cell Scan OK (OK)
[2021-04-15] MEDS ORDERED: SOD FERRIC GLUC COMPLX/SUCROSE 125 MG in NA CHLORIDE 0.9% 100 ML IV SCH (09:00)
[2021-04-15] MEDS ORDERED: POTASSIUM 25 MEQ EFFERV TAB PO ONE (09:00)
[2021-04-15] MEDS: SERTRALINE HCL 100 MG TAB PO SCH (09:00)
[2021-04-15] MEDS: ALBUTEROL IH SCH (09:36)
[2021-04-15] MEDS: [UNRECOGNIZED DRUG - OTHER] IH SCH (09:36)
[2021-04-15] MEDS: ISENTRESS 400 MG PO SCH (09:38)
[2021-04-15] MEDS: EMTRICITABINE PO SCH (09:38)
[2021-04-15] MEDS: TENOFOV ALAFENAM PO SCH (09:38)
[2021-04-15] MEDS: METOPROLOL TAR 50 MG TAB PO SCH (09:39)
[2021-04-15] MEDS: BUPROPION HCL XL 150 MG TAB PO SCH (09:40)
[2021-04-15] MEDS: PANTOPRAZOLE 40MG TABLET PO SCH (09:40)
[2021-04-15] MEDS: BUSPIRONE HCL 5 MG TABLET PO SCH (09:40)
[2021-04-15] MEDS: LORAZEPAM 1 MG TABLET PO SCH (09:40)
[2021-04-15] MEDS: AMLODIPINE 10 MG TAB PO SCH (09:40)
[2021-04-15] MEDS: HYDRALAZINE HCL 25 MG TABLET PO SCH ×2 (09:40→13:34)
[2021-04-15] MEDS ORDERED: HYDROCODONE/APAP 7.5/325 MG TAB PO PRN (11:00)
--- NOTE | 2021-04-15 12:37 | P.DS ---
Admission Date: 04/08/21 Discharge Date: 04/15/21 Disposition: TRANSFER TO SNF - MEDICAL Discharge Condition: FAIR Reason for Admission: Weakness, repeated falls Procedures: CXR (04/06): IMPRESSION: Pulmonary vascular congestion. Cardiomegaly. Problem List Debility, repeated falls Paroxysmal Atrial fibrillation on chronic anticoagulation therapy Symptomatic anemia, of chronic disease acute on chronic COPD exacerbation. Acute on chronic diastolic heart failure Chronic respiratory failure with hypoxia. CAD HIV BPD Hyperlipidemia Morbid obesity GERD Brief History of Present Illness: 66-year-old female with history of COPD on home oxygen, CAD, hypertension, chronic atrial fibrillation on chronic anticoagulation, HIV, PVD, hyperlipidemia, obesity presents emergency department for weakness. Patient was discharged from the hospital approximately 12 hours ago after short stay from repeated falls and acute blood loss anemia. During admission patient was evaluated by physical therapy and attending physician and it was recommended that she go to SNF as she was still very weak and having repeated falls. Patient adamantly declined at that time and wished to go home. Patient was discharged home again approximately 12 hours ago, patient reports that ever since she has been at home she is unable to get up, cook, clean, bathe or even wash herself after bowel movement. Patient realized she is unable to care for herself adequately at home and return to the emergency department for further evaluation. Patient was again evaluated in the emergency department labs were significant for hemoglobin 8.4 hematocrit 27.6 MCV 74 GFR 83 glucose 113 BNP 3564 troponin negative patient had Covid test couple days ago that was negative. ED provider wishes to admit under observation for weakness, repeated falls. Hospital Course: Patient was admitted to, physical therapy was consulted, pain was treated with [place] and NSAID. She had gradual improvements, seem motivated to continue to work with the team and improved. Unfortunately inpatient rehab was denied by insurance. Took several days to get patient approved and accepted to a skilled facility for ongoing care/rehab. Patient with acute blood loss on chronic anemia (hemoglobin down to 8.2) secondary to large multiple ecchymosis. She received 1 unit PRBC and was stable after transfusion in the mid 8s. Anemia labs did show significantly low iron and transferrin saturation, unfortunately patient was a difficult IV stick, and unable to give IV iron. Recommend patient take p.o. iron. Her Eliquis was held on admission and throughout her hospitalization. She remained in sinus rhythm. Given the multiple days of stability of her hemo globin, no evidence of bleeding, and resolution of ecchymosis, patient can restart Eliquis tomorrow. Patient was noted to be volume overloaded on admission, improved with intermittent usage of Lasix. Her breathing became more comfortable/less labored as well. She had multiple imaging done of her joints/extremities on the previous admission (1 day prior to this admission). Patient was having gradual improvement of her pain, no new pains/joint swelling, so no new imaging was obtained. Please refer to that discharge summary for imaging results. Vital Signs/Physical Exam: Temp Pulse Resp BP Pulse Ox 97.6 F 72 20 150/80 H 98 04/15/21 08:00 04/15/21 08:00 04/15/21 08:00 04/15/21 08:00 04/15/21 08:00 General: Alert, In no apparent distress, Oriented x3 HEENT: Mucous membr. moist/pink, Sclerae nonicteric Neck: No LAD Respiratory: Diminished (Mildly at bases bilaterally. Nonlabored on 2 L nasal cannula) Cardiovascular: Edema (1+ bilaterally to knees) Gastrointestinal: Soft and benign, Non-distended, No tenderness Musculoskeletal: Swelling (L knee with tenderness to palpation. Improving.) Integumentary: No significant lesion Neurological: Normal speech, Normal affect Laboratory Data at Discharge: WBC 4.50 K/uL (4.3-10.9) 04/15/21 05:50 Hgb 8.4 g/dL (12.0-15.0) L 04/15/21 05:50 Hct 27.9 % (36.0-45.0) L 04/15/21 05:50 Plt Count 233 K/uL (152-406) 04/15/21 05:50 PT 11.9 SECONDS (9.5-12.5) 04/06/21 01:45 INR 1.03 04/06/21 01:45 Sodium 146 mmol/L (136-145) H 04/15/21 05:50 Potassium 3.4 mmol/L (3.5-5.1) L 04/15/21 05:50 BUN 18 mg/dL (7-18) 04/15/21 05:50 Creatinine 0.83 mg/dL (0.55-1.3) 04/15/21 05:50 Glucose 132 mg/dL (74-106) H 04/15/21 05:50 Phosphorus 2.7 mg/dL (2.5-4.9) 04/13/21 16:00 Magnesium 2.1 mg/dL (1.8-2.4) 04/15/21 05:50 Total Bilirubin 0.6 mg/dL (0.2-1.0) 04/08/21 05:31 AST 28 U/L (15-37) 04/08/21 05:31 ALT 23 U/L (12-78) 04/08/21 05:31 Alkaline Phosphatase 56 U/L (45-117) 04/08/21 05:31 Home Medications: Raltegravir Potassium [Isentress] 1 tab PO BID 02/28/12 Sertraline [Zoloft*] 2 tab PO DAILY 09/15/12 Metoprolol Tartrate 100 mg PO BID #60 tablet 02/03/20 Apixaban [Eliquis] 1 tab PO BID 07/30/20 Lisinopril [Zestril] 1 tab PO BID 07/30/20 Emtricitabine/Tenofov Alafenam [Descovy 200-25 mg Tablet] 1 tab PO DAILY 03/05/21 Hydralazine HCl 50 mg PO TID 03/05/21 Amlodipine Besylate 1 tab PO DAILY 03/30/21 Buspirone HCl 30 mg PO BID 03/30/21 Dexlansoprazole [Dexilant] 60 mg PO DAILY 03/30/21 Docusate/Senna [Senokot-S*] 1 tab PO DAILY PRN 03/30/21 Albuterol Inhaler [Ventolin Inhaler*] 2 puff IH BID 03/31/21 LORazepam [Lorazepam] 1 tab PO BID 03/31/21 buPROPion HCL [Bupropion Xl] 1 tab PO DAILY 04/03/21 Hydrocodone 5/APAP 325 [[place] 5/325*] 1 tab PO Q8H PRN 5 Days #15 tab 04/05/21 Ferrous Sulfate [Iron] 325 mg PO DAILY 30 Days #30 tablet 04/15/21 New Medications: Ferrous Sulfate [Iron] 325 mg PO DAILY 30 Days #30 tablet Physician Discharge Instructions: You had multiple falls, no new broken bones. You were evaluated by PT and unstable. Recommended inpatient rehab vs skilled rehab. You were eventually approved and accepted to [facility] to continue physical therapy / improvement prior to going home. acute on chronic CHF exacerbation - you were noted to be fluid overloaded on admission and improved with short course of lasix. anemia - you received 1 unit of red blood cells for anemia. Drop in your hemoglobin was due to large amount of bruising you had after falls. This was stable after the transfusion. You were noted to have some component of iron deficiency as well and recommend daily iron supplementation. Your sutures were removed from your right wrist. Your eliquis was held during the hospitalization. Recommend restarting tomorrow. Your lisinopril was held during hospitalization as well. Your blood pressure has been up/down, follow up with PCP, likely restart in next few days, increasing back to prior dose. Follow up with your PCP within 3-5 days of discharge from [facility] Diet: AHA Activity: Fall precautions Followup: Unknown,U [Primary Care Provider] - Time spent managing pt's care (in minutes): 45
[2021-04-15 19:27] VITALS: BP 176/84; TEMP 97.1
[2021-04-15] MEDS ORDERED: BUSPIRONE HCL 15 MG TABLET PO SCH (21:00)
== END 2021-04-15 17:13 | DRG 811 ==
LOC: ER 01:11 → ERHOLD 04:21 → 2ND 13:01 → OBSVTOIN 04-08 12:27
PROVIDERS: ADMIT Hospitalist; ATTEND Hospitalist
PROC: 30233N1 Transfusion of Nonautologous Red Blood Cells into Peripheral Vein, Percutaneous Approach (ICD-10-PCS; principal; 2021-04-07)
DX: D62 Acute posthemorrhagic anemia (principal); I50.33 Acute on chronic diastolic (congestive) heart failure; J44.1 Chronic obstructive pulmonary disease with (acute) exacerbation; J96.11 Chronic respiratory failure with hypoxia; Z68.41 Body mass index [BMI] 40.0-44.9, adult; R53.81 Other malaise; Z21 Asymptomatic human immunodeficiency virus [HIV] infection status; E78.5 Hyperlipidemia, unspecified; R53.1 Weakness; R29.6 Repeated falls; F31.9 Bipolar disorder, unspecified; D50.9 Iron deficiency anemia, unspecified; I48.0 Paroxysmal atrial fibrillation; I25.10 Atherosclerotic heart disease of native coronary artery without angina pectoris; K21.9 Gastro-esophageal reflux disease without esophagitis; I11.0 Hypertensive heart disease with heart failure; E66.01 Morbid (severe) obesity due to excess calories; Z79.01 Long term (current) use of anticoagulants; Z99.81 Dependence on supplemental oxygen
CPT/HCPCS: 36415; 71045; 80048; 80053; 80076; 81003; 82728; 82947; 83540; 83735; 83880; 84100; 84466; 84484; 85014; 85018; 85025; 85027; 85044; 85610; 86850; 86900; 86901; 93005; 94640; 96361; 96374; 96375; 97110; 97116; 97161; 97530; 99285; G0378; J1170; J1940; J2405; J2916; J7040; J7050; P9016

== ENCOUNTER 2021-04-28 16:51 | Emergency (ER) | payer OTHER ==
--- OUTSIDE RECORDS SUMMARY | 2021-04-28 17:00 | XMS REPORT | Continuity of Care Document ---
:1955 Author Organization [facility] t Address [address] [place] [address] Care Team Providers Name Role Phone MURPHY Primary Care Physician Unavailable HEMATPOUR Attending Clinician Unavailable ZEUS REEVES Attending Clinician Unavailable Ronald DHILLON Attending Clinician Prabhu SANCHEZ Attending Clinician Unavailable Emerald Maharaj NP. Attending Clinician Yazmin JENKINS Attending Clinician [facility] Attending Clinician Unavailable Marika Bal Attending Clinician Clark SANCHEZ Attending Clinician Unavailable [...] Number Effective Date Expiration Date Christian lloyd [facility]AN [id number] 2012 STAR PLUS 00:00:00 [employer] [id number] 2019 BEHAVIORAL 00:00:00 SOLUTIONS MEDICAID OF [place] [id number] 2020 00:00:00 Problems Condition Condition Condition Status Onset Resolution Last Treating Co mments Source Name Details Category Date Date Treatment Clinician Date Gastropare Gastropare Disease Active Overview : Methodi sis sis 4-[address] 00:00: [facility] 00 note l might be different from the original. Added automatic ally from request for surgery [id number] Dysphagia Dysphagia Disease Active Overview: Methodi 4-[address] 00:00: g of this [facility]osp[facility] 00 note l might be different from the original. Added automatic ally from request for surgery [id number] CCL / EPS Diagnosis Active 2020-10-15 Memoria PVI 3-30 17:07:00 l ABLATION CCL / 00:00: [place] W/ CARTO / EPS PVI 00 GA / T ABLATION W/ CARTO / GA / T Active 08/19/2020 [facility] Food Food Disease Active 2019-05 Methodi [...] 2-19 ity of 30-39.9) 30-39.9) 00:00: [place] 00 [facility] Anemia Anemia Disease Active 2014-05 Univers 0-03 ity of 00:00: [place] [facility] Hypovolemi Hypovolemi Disease Active 2014-05 U nivers a due to a due to 0-02 ity of hemorrhage hemorrhage 00:[place] [facility] Chest pain Chest pain Disease Active 2014-05 U nivers 0- ity of 00:00: [place] [facility] 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:00: [place] shoulder shoulder 00 Medica l arthroplas arthroplas Br anch ty ty Posttrauma Posttrauma Disease Active U nivers tic stress tic stress 09-27 it y of disorder disorder 00:00: [place] [facility] 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 00:00: [place] virus virus 00 Medical (HIV) (HIV) Branch disease disease Bipolar 2 Bipolar 2 Disease Active Uni vers disorder disorder 11-18 ity of 00:00: [place] [facility] Chronic Chronic Disease Active Univers hepatitis hepatitis 11-18 ity of C C 00:00: [place] [facility] Hypertensi Hypertensi Disease Active U [...] matt NOL INGREDI 11-25 ity of 00:00: [place] [facility] Butorpha Drug Active Unknown - [...] 00 Medical Branch TRIMETHO DRUG Active Hives Univers PRIM INGREDI -08 ity of 00:00: [place] 00 [facility] Fentanyl Drug Active Other - [...] DRUG Active Unknown-Cmnt Un matt RAMIDE INGREDI 1-06 ity of 00:00: [place] 00 Medical Branch Metoclop Propensi Active Unknown - Uni vers ramide ty to See comments 05-28 ity of adverse 00:00: [place] reaction 00 Medical s Branch SULFAMET DRUG Active High Unknown-Cmnt 2015-05 Un matt HOXAZOLE INGREDI 2 ity of 00:00: [place] 00 Medical Branch Sulfamet Propensi Active Other - See 2015-05 Stomach Univers hoxazole ty to comments 06-24 pain ity of adverse 00:00: [place] reaction 00 Medical s Branch Sulfamet Propensi Active Rash 2015-05 Method i hoxazole ty to 06-24 st adverse 00:00: Hospita reaction 00 l s to drug METOCLOP DRUG Active Anxiety Univers RAMIDE INGREDI 9- ity of HCL 00:00: [place] 00 Medical [...] Date Stop Date Source Natural father Diabetes [facility] Natural father Other - see comments [facility] Natural [facility] Natural mother Cancer [facility] Social History Social Habit Start Date Stop Date Quantity Comments Source History [facility] Alcohol Std Drinks History [facility] Alcohol Binge Exposure to Not sure [facility] SARS-CoV-2 (event) History of tobacco Smoker Method ist use [facility] Cigarettes smoked 2020-12-08 2020-12-[address] current (pack per 00:00:00 00:00:00 Hospita l day) - Reported Cigarette 2020-12-08 2020-12-08 Jew pack-years 00:00:00 00:00:00 Hospital Tobacco use and 2020-10-31 2020-10-31 Never used [facility] exposure 00:00:00 00:00:00 Alcohol intake 2020-10-31 2020-10-31 Ex-drinker [facility] 00:00:00 00:00:00 (finding) History SDOH 2020-10-31 2020-10-31 1 [facility] Alcohol Frequency 00:00:00 00:00:00 Alcohol Comment 2016-09-23 2016-09-23 rare Jew 00:00:00 00:00:00 Hospital Tobacco Comment 2015-02-14 2015-02-14 Smokes approx 1-2 Un iversity of 00:00:00 00:00:00 cigarettes per [place] [facility] day when she Branch smokes Sex Ass[birth year] [facility] 00:00:00 00:00:00 Smoking Status Start Date Stop Date Source Former smoker 2020-10-31 00:00:00 2020-10-31 [facility] if [facility] Medications Ordered Filled Start Stop Current Ordering Indication Dosage Frequency Signature Comments Components Source Medication Medication Date Date Medication? Clinician (SIG) Name Name LORazepam 2 2020-05 Yes [id number] 2mg Take 1 Univers mg tablet 2-06 tablet by ity o f 00:00: mouth 2 [place] 00 (two) Medical times Branch daily as needed (anxiety). LORazepam 2 2020-05- No [id number] 2mg Take 1 Univers mg tablet 03 12-06 tablet by ity of 00:00: 00:00 mouth 2 [place] 00 :00 (two) Medical times Branch daily as needed (anxiety). raltegravir Yes [id number] 400mg Take 1 Univers (ISENTRESS) 9-24 tablet by ity of 400 mg 00:00: mouth 2 [place] tablet 00 (two) Medical times Branch daily. buPROPion Yes [id number] 150mg Take 1 U nivers XL 9-08 tablet by ity of (WELLBUTRIN 00:00: mouth [place] XL) 150 mg 00 daily. Medical 24 hr Branch tablet SERTraline Yes [id number] 200mg Take 2 Univers 100 mg 9-08 tablets by ity of tablet 00:00: mouth [place] 00 daily. Medical Branch busPIRone Yes [id number] 30mg Take 1 Un matt 30 mg 8-30 tablet by ity of tablet 00:00: mouth 2 [place] 00 (two) Medical times Branch daily. metoprolol 2021- No [id number] Take 1 UT tartrate 7-17 06-23 tablet Health (Lopressor) 00:00: 05:59 (100 mg 100 MG 00 :00 total) by tablet mouth 2 (two) times a day AND 0.5 tablets (50 mg total) every night. raltegravir Yes 400mg Q.5D Take 400 U T [...] area in groin) hydrALAZINE 0 Yes 50mg Q.[id number] Take 50 mg Methodi (APRESOLINE 7-19 [id number] mouth [address] ) 50 MG 15:51: 3D (three) Hospita tablet 25 times a l day. busPIRone 0 Yes 20mg QD Take 20 mg Me thodi (BUSPAR) 10 7-[address] MG tablet 15:51: nightly. Hosp soren 25 l acetaminoph 2020-0 Yes 1000mg Q.5D Take 1,000 Methodi en [...] Hospita tablet 25 daily. l nystatin-tr Yes [id number] Apply to [facility] iamcinolone 11-25 area(s) 3 ity of cream 00:00: (three) [place] 00 times Medical daily. Branch emtricitabi Yes [id number] Take one [facility] ne-tenofovi 11-25 po daily ity of r alafen 00:00: [place] (DESCOVY) 00 Medical tablet Branch budesonide- 2020- No 1{puff} QD Inhale 1 Methodi formoteroL 6-25 06-[address] (SYMBICORT) 19:37: 00:00 morning. H ospita 160-4.5 02 :00 l mcg/actuati on inhaler hydrALAZINE 2020- No [id number] 50mg Q.[id number] Take 1 UT (Apresoline 10-31 [id number] tablet (50 Health ) 50 MG 00:00: 04:59 3D mg total) tablet 00 :00 by mouth 3 (three) times a day. hydrALAZINE 2020- No [id number] 50mg Q.[id number] Take 1 UT (Apresoline 10-31 [id number] tablet (50 Health ) 50 MG 00:00: 04:59 3D mg total) tablet 00 :00 by mouth 3 (three) times a day. hydrALAZINE 2020- No [id number] 50mg Q.[id number] Take 1 UT (Apresoline 10-31 [id number] tablet (50 Health ) 50 MG 00:00: 04:59 3D mg total) tablet 00 :00 by mouth 3 (three) times a day. hydrALAZINE 2020- No [id number] 50mg Q.[id number] Take 1 UT (Apresoline 10-31 [id number] tablet (50 Health ) 50 MG 00:00: 04:59 3D mg total) tablet 00 :00 by mouth 3 (three) times a day. Breztri 2020-0 Yes [facility] Aerosphere 6-09 [facility] 160-9-4.8 00:00: MCG/ACT 00 aerosol Breztri 2020-0 Yes [facility] Aerosphere 6-09 [facility] 160-9-4.8 00:00: MCG/ACT 00 aerosol Breztri 2020-0 Yes [facility] Aerosphere 609 [facility] 160-9-4.8 00:00: MCG/ACT 00 aerosol Breztri 2020-0 Yes [place] Aerosphere 6-09 [facility] 160-9-4.8 00:00: MCG/ACT 00 aerosol albuterol 2020-0 [...] Health 200 MG 00:00: tablet 00 amiodarone 2020-0 Yes UT (Pacerone) 5-31 Health 200 MG 00:00: tablet 00 amiodarone 2020- No UT (Pacerone) 5-31 07-26 Health [...] % 00:00: ointment 00 nystatin 2020- No [id number] Q.25D Take 5 mL Methodi (MYCOSTATIN 10-06 (500,000 st ) 100,000 00:00: 04:59 Units Hospit a unit/mL 00 :00 total) by l suspension mouth 4 (four) times a day for 14 days. Swish in mouth sucralfate 2020- No 1g Q.25D Take 10 mL Methodi (Carafate) 10-06-28 ([address] 100 mg/mL 00:00: 04:59 [...] (one) time tablet 00 each day. clobetasol 0 Yes 1{appli Q12H Apply 1 U T (Temovate) 5-14 cation} applicatio Health 0.05 % 00:00: n ointment 00 topically every 12 (twelve) hours. LORazepam 0 Yes UT (Ativan) 2 5-14 Health MG tablet 00:00: 00 amLODIPine 2020-0 Yes 10mg QD Take 10 mg U T (Norvasc) 5-14 by mouth 1 Heal th 10 MG 00:00: (one) time tablet 00 each day. clobetasol 2020-0 Yes 1{appli Q12H Apply 1 U T (Temovate) 5-14 cation} applicatio Health 0.05 % 00:00: n ointment 00 topically every 12 (twelve) hours. Eliquis 5 2020-0 Yes UT MG tablet 5-05 Health 00:00: 00 Eliquis 5 2020-0 Yes UT MG tablet 5-05 Health 00:00: 00 Eliquis 5 2020-0 Yes UT MG tablet 5-05 Health 00:00: 00 Eliquis 5 2020-0 Yes UT MG tablet 5-05 Health 00:00: 00 pantoprazol 2021-0 Yes UT e 4-20 Health (ProtoNix) 00:00: [...] Take 40 mg Methodi e (NexIUM) 12 04-[address] 40 MG 13:54: 00:00 (two) Hospita capsule 18 :00 times a l day. LORAZepam No 2mg QD Take 2 mg Me thodi (ATIVAN) 2 -12 -[address] MG tablet 13:51: 00:00 every Hospit a 15 :00 morning. l busPIRone No 20mg QD Take 20 mg M ethodi (BUSPAR) 10 -12 04-[address] MG tablet 13:50: 00:00 [...] e 4-10 Tablet l 14:00: should not [place] 00 be chewed or crushed. (Same as: Protonix) Amiodarone No Notes: Memor ia 4-10 (Same as: l 14:00: Cordarone) Marty 00 Amlodipine No Notes: Memor ia 4-10 (Same as: l 14:00: Norvasc) [place] emtricitabi No Notes: Caesar lisa ne 200 MG / 4-10 (Same as: l tenofovir 14:00: Descovy) Herm ariel alafenamide 00 Non-formul 25 MG Oral nancy Tablet [Descovy] Sertraline No Notes: Memor ia 4-10 (Same as: l 14:00: Zoloft) [place] 00 Sertraline No Notes: Memor ia 4-10 (Same as: l 14:00: Zoloft) [place] 00 pantoprazol No Notes: Caesar lisa e [...] ia 4-10 (Same as: l 14:00: Norvasc) [place] 00 emtricitabi No Notes: Caesar lisa ne 200 MG / 4-10 (Same as: l tenofovir 14:00: Descovy) Herm ariel alafenamide 00 Non-formul 25 MG Oral nancy Tablet [Descovy] Sertraline No Notes: Memor ia 4-10 (Same as: l 14:00: Zoloft) [place] pantoprazol No Notes: Caesar lisa e 4-10 Tablet l 14:00: should not [place] 00 be chewed or crushed. (Same as: Protonix) Amiodarone No Notes: Memor ia 4-10 (Same as: l 14:00: Cordarone) [place] Amlodipine No Notes: Memor ia 4-10 (Same as: l 14:00: Norvasc) [place] emtricitabi No Notes: Caesar lisa ne 200 MG / 4-10 (Same as: l tenofovir 14:00: Descovy) Herm ariel alafenamide 00 Non-formul 25 MG Oral nancy Tablet [Descovy] Sertraline No Notes: Memor ia 4-10 (Same as: l 14:00: Zoloft) [place] pantoprazol No Notes: Caesar lisa e 4-10 [...] e 4-10 Tablet l 14:00: should not [place] 00 be chewed or crushed. (Same as: [...] emoria 4-10 interfere l 02:00: w/enteral Marty feeds - Take 1 hr before or [...] M emoria 4-10 interfere l 02:00: w/enteral [place] 00 feeds - Take 1 hr before [...] Memoria 4-10 Same as: l 02:00: Eliquis [place] Hydralazine No Notes: Caesar lisa Hydrochlori 4-10 [...] 0.9% 4-10 (Same as: l 02:00: BD [place] Posiflush) Eliquis No Notes: Memoria 4-10 Same as: l 02:00: Eliquis [place] 00 Hydralazine No Notes: Caesar lisa Hydrochlori 4-10 (Same as: l de 50 MG 02:00: Apresoline Her mitchell Oral Tablet 00 ) May interfere w/enteral feedings Take With Food Sucralfate No Notes: May M emoria 4-10 interfere l 02:00: w/enteral [place] 00 feeds - Take 1 hr before [...] Memoria 4-10 Same as: l 02:00: Eliquis [place] Hydralazine No Notes: Caesar lisa Hydrochlori 4-10 (Same as: l de 50 MG 02:00: Apresoline Her mitchell Oral Tablet 00 ) May interfere w/enteral feedings Take With Food Sucralfate No Notes: May M emoria 4-10 interfere l 02:00: w/enteral [place] 00 feeds - Take 1 hr before or 2 hr after antacids, dairy pdt, meals & minerals - On empty stomach. For patients unable to swallow tablet, dissolve in 10mL - 30mL of water or juice and stir before giving. (Same As: Carafate) Saline No Notes: Memoria Flush 0.9% 4-10 (Same as: l 02:00: BD [place] 00 Posiflush) Eliquis No Notes: Memoria 4-10 Same as: l 02:00: Eliquis [place] Hydralazine No Notes: Caesar lisa Hydrochlori 4-10 (Same as: l de 50 MG 02:00: Apresoline Her mitchell Oral Tablet 00 ) May interfere w/enteral feedings Take With Food Sucralfate No Notes: May M emoria 4-10 interfere l 02:00: w/enteral [place] 00 feeds - Take 1 hr before [...] not exceed l #3 00:12: 4gm/day of [place] acetaminop hen. (Same as: Tylenol with Codeine # 3) acetaminoph No Notes: Do M emoria en-codeine 4-10 not exceed l #3 00:12: 4gm/day of [place] acetaminop hen. (Same as: Tylenol with Codeine # 3) acetaminoph No Notes: Do M emoria en-codeine 4-10 not exceed l #3 00:12: 4gm/day of [place] acetaminop hen. (Same as: Tylenol with Codeine # 3) acetaminoph No Notes: Do M emoria en-codeine 4-10 not exceed l #3 00:12: 4gm/day of [place] acetaminop hen. (Same as: Tylenol with Codeine # 3) acetaminoph No Notes: Do M emoria en-codeine 4-10 not exceed l #3 00:12: 4gm/day of [place] acetaminop hen. (Same as: Tylenol with Codeine # 3) acetaminoph No Notes: Do M emoria en-codeine 4-10 not exceed l #3 00:12: 4gm/day of [place] acetaminop hen. (Same as: Tylenol with Codeine # 3) acetaminoph No Notes: Do M emoria en-codeine 4-10 not exceed l #3 00:12: 4gm/day of [place] acetaminop hen. (Same as: Tylenol with Codeine # 3) Buspirone 2020-0 No Notes: Memori a 08-29 (Same As: l 22:00: BuSpar) Lisinopril 2020-0 No 40 mg, 1 Mem oria - tab, l 22:00: Route: PO, [place] 00 Drug form: TAB, BID, Dosing Weight 97.273, kg, Start date: 08/29/20 17:00:00 CDT, Duration: 30 day, Stop date: 09/28/20 9:00:00 CDT metoprolol 1-0 No 100 mg, 1 Me moria tartrate - tab, l 22:00: Route: PO, [place] 00 Drug form: TAB, BID, Dosing Weight [...] oria - tab, l 22:00: Route: PO, [place] 00 Drug form: TAB, BID, Dosing Weight 97.273, kg, Start date: 08/29/20 17:00:00 CDT, Duration: 30 day, Stop date: 09/28/20 9:00:00 CDT metoprolol 2021-0 No 100 mg, 1 Me moria tartrate -09 tab, l 22:00: Route: PO, [place] 00 Drug form: TAB, BID, Dosing Weight 97.273, kg, Start date: 08/29/20 17:00:00 CDT, Duration: 30 day, Stop date: 09/28/20 9:00:00 CDT Buspirone 2020-0 No Notes: Memori a - (Same As: l 22:00: BuSpar) Raltegravir 2020-0 No 400 mg, 1 M emoria 400 MG Oral 4-09 tab, l Tablet 22:00: Route: PO, Skylar nn [ISENTRESS] 00 Drug form: TAB, BID, Dosing Weight 97.273, kg, Start date: 08/29/20 17:00:00 CDT, Duration: 30 day, Stop date: 09/28/20 9:00:00 CDT, 0 Lisinopril 2020-0 No 40 mg, 1 Mem oria 4-09 tab, l 22:00: Route: PO, [place] 00 Drug form: TAB, BID, Dosing Weight [...] 0 Buspirone 2020-0 No Notes: Memori a - (Same As: l 22:00: BuSpar) Lisinopril 1-0 No 40 mg, 1 Mem oria 4-09 tab, l 22:00: Route: PO, Mraty 00 Drug form: TAB, BID, Dosing Weight 97.273, kg, Start date: 08/29/20 17:00:00 CDT, Duration: 30 day, Stop date: 09/28/20 9:00:00 CDT metoprolol 2021-0 No 100 mg, 1 Me moria tartrate 4-09 tab, l 22:00: Route: PO, [place] Drug form: TAB, BID, Dosing Weight 97.273, [...] tartrate 4-09 tab, l 22:00: Route: PO, [place] 00 Drug form: TAB, BID, Dosing Weight 97.273, kg, Start date: 08/29/20 17:00:00 CDT, Duration: 30 day, Stop date: 09/28/20 9:00:00 CDT Raltegravir 1-0 No 400 mg, 1 M emoria 400 MG Oral 4- tab, l Tablet 22:00: Route: PO, Skylar nn [ISENTRE] Drug form: TAB, BID, Dosing Weight 97.273, kg, Start date: 08/29/20 17:00:00 CDT, Duration: 30 day, Stop date: 09/28/20 9:00:00 CDT, 0 Buspirone 2020-0 No Notes: Memori a 08-29 (Same As: l 22:00: BuSpar) Lisinopril 2020-0 No 40 mg, 1 Mem oria - tab, l 22:00: Route: PO, [place] 00 Drug form: TAB, BID, Dosing Weight 97.273, kg, Start date: 08/29/20 17:00:00 CDT, Duration: 30 day, Stop date: 09/28/20 9:00:00 CDT metoprolol 2021-0 No 100 mg, 1 Me moria tartrate 4-09 tab, l 22:00: Route: PO, [place] Drug form: TAB, BID, Dosing Weight 97.273, [...] Notes: Memoria 4-09 (Same l 17:07: as:MORPhin [place] 00 e Sulfate) Morphine No Notes: Memoria 4-09 (Same l 17:07: as:MORPhin [place] 00 e Sulfate) Morphine No Notes: Memoria 4-09 (Same l 17:07: as:MORPhin [place] 00 e Sulfate) Morphine No Notes: Memoria [...] Stop date: 09/27/20 11:00:00 CDT, 0 buPROPion 2020-0 No 150 mg, 1 Mem oria 24 hour 4-09 tab, l extended 16:00: Route: PO, Her mitchell release 00 Drug form: ERTAB, Q24H, Dosing Weight 97.273, kg, Start date: 08/29/20 11:00:00 CDT, Duration: 30 day, Stop date: 09/27/20 11:00:00 CDT, 0 buPROPion 0 No 150 mg, 1 Mem oria 24 [...] Stop date: 09/27/20 11:00:00 CDT, 0 glycopyrrol 1-0 No Route: IV, Memoria ate (ANES) 08-29 Drug form: l 15:40: INJ, ONCE, [place] 00 Stop date: 08/29/20 10:40:00 CDT neostigmine 2021-0 No Route: IV, Memoria (ANES) 08-29 Drug [...] 30 tab, 0 coated Refill(s), tablet Pharmacy: [facility], 162.56, cm, 08/29/20 5:30:00 CDT, Height, 97.273, kg, 08/29/20 5:30:00 CDT, Weight pantoprazol 2020-0 Yes 40 mg = 1 M emoria e 40 mg 4-09 tab, PO, l oral 15:27: Daily, # [place] enteric 00 30 tab, 0 coated Refill(s), tablet [facility], 162.56, cm, 08/29/20 5:30:00 CDT, Height, 97.273, kg, 08/29/20 5:30:00 CDT, Weight pantoprazol 2021-0 Yes 40 mg = 1 M emoria e 40 mg 4-09 tab, PO, l oral 15:27: Daily, # Marty enteric 00 30 tab, 0 coated Refill(s), tablet Pharmacy: [facility] 149, 162.56, cm, 08/29/20 5:30:00 CDT, Height, 97.273, kg, 08/29/20 5:30:00 CDT, Weight pantoprazol 2021-0 Yes 40 mg = 1 M emoria e 40 mg 4-09 tab, PO, l oral 15:27: Daily, # [place] enteric 00 30 tab, 0 coated Refill(s), tablet Pharmacy: [facility] 149, 162.56, cm, 08/29/20 5:30:00 CDT, Height, 97.273, kg, 08/29/20 5:30:00 CDT, Weight pantoprazol 2021-0 Yes 40 mg = 1 M emoria e 40 mg 4-09 tab, PO, l oral 15:27: Daily, # [place] enteric 00 30 tab, 0 coated Refill(s), tablet Pharmacy: [facility] 149, 162.56, cm, 08/29/20 5:30:00 CDT, Height, 97.273, kg, 08/29/20 5:30:00 CDT, Weight pantoprazol 2021-0 Yes 40 mg = 1 M emoria e 40 mg 4-09 tab, PO, l oral 15:27: Daily, # [place] enteric 00 30 tab, 0 coated Refill(s), tablet [facility]: [facility], 162.56, cm, 08/29/20 5:30:00 CDT, Height, 97.273, kg, 08/29/20 5:30:00 CDT, Weight pantoprazol 2021-0 Yes 40 mg = 1 M emoria e 40 mg 4-09 tab, PO, l oral 15:27: Daily, # Marty enteric 00 30 tab, 0 coated Refill(s), tablet Pharmacy: [facility] 149, 162.56, cm, 08/29/20 5:30:00 [...] Skylar nn 00 tab, 0 Refill(s), Pharmacy: [place] [address], 162.56, cm, 08/29/20 5:30:00 CDT, Height, 97.273, kg, 08/29/20 5:30:00 CDT, Weight pantoprazol 2020-0 No 40 mg = 1 M emoria e 40 mg 4-09 tab, PO, l oral 15:26: Daily, # [place] enteric 00 30 tab, 0 coated Refill(s) tablet sucralfate 2020-0 Yes 1 gm = 1 Mem oria 1 g oral 4-09 tab, PO, l tablet 15:26: Q12H, # 28 Skylar nn 00 tab, 0 Refill(s), Pharmacy: [place] [address], 162.56, cm, 08/29/20 5:30:00 CDT, Height, 97.273, [...] Skylar nn 00 tab, 0 Refill(s), Pharmacy: [place] [address], 162.56, cm, 08/29/20 5:30:00 CDT, Height, 97.273, kg, 08/29/20 5:30:00 CDT, Weight pantoprazol 2020-0 No 40 mg = 1 M emoria e 40 mg 4-09 tab, PO, l oral 15:26: Daily, # [place] enteric 00 30 tab, 0 coated Refill(s) tablet sucralfate 2020-0 Yes 1 gm = 1 Mem oria 1 g oral 4-09 tab, PO, l tablet 15:26: Q12H, # 28 Skylar nn 00 tab, 0 Refill(s), Pharmacy: [place] [address], 162.56, cm, 08/29/20 5:30:00 CDT, Height, 97.273, [...] Skylar nn 00 tab, 0 Refill(s), Pharmacy: [place] [address], 162.56, cm, 08/29/20 5:30:00 CDT, Height, 97.273, [...] Skylar nn 00 tab, 0 Refill(s), Pharmacy: [facility] 149, 162.56, cm, 08/29/20 5:30:00 [...] Skylar nn 00 tab, 0 Refill(s), Pharmacy: [facility] 149, 162.56, cm, 08/29/20 5:30:00 CDT, Height, 97.273, kg, 08/29/20 5:30:00 CDT, Weight Saline No Notes: Memoria Flush 0.9% 4-09 (Same as: l 15:25: BD [place] 00 Posiflush) Lorazepam No Notes: Memori a 4-09 (Same as: l 15:25: Ativan) [place] Saline No Notes: Memoria Flush 0.9% 4-09 (Same as: l 15:25: BD [place] 00 Posiflush) Lorazepam No Notes: Memori a 4-09 (Same as: l 15:25: Ativan) [place] Saline No Notes: Memoria Flush 0.9% 4-09 (Same as: l 15:25: BD [place] 00 Posiflush) Saline No Notes: Memoria Flush 0.9% 4-09 (Same as: l 15:25: BD [place] 00 Posiflush) Lorazepam No Notes: Memori a 4-09 (Same as: l 15:25: Ativan) [place] Lorazepam No Notes: Memori a 4-09 (Same as: l 15:25: Ativan) [place] Saline No Notes: Memoria Flush 0.9% 4-09 (Same as: l 15:25: BD [place] 00 Posiflush) Lorazepam No Notes: Memori a 4-09 (Same as: l 15:25: Ativan) [place] Saline No Notes: Memoria Flush 0.9% 4-09 (Same as: l 15:25: BD [place] 00 Posiflush) Lorazepam No Notes: Memori a 08-29 (Same as: l 15:25: Ativan) Saline No [...] ONCE, Stop date: 08/29/20 9:49:00 CDT heparin 0 No Route: IV, Caesar lisa (ANES) 08-29 Drug form: l 14:49: INJ, ONCE, Stop date: 08/29/20 9:49:00 CDT heparin 0 No Route: IV, Caesar lisa (ANES) 08-29 Drug form: l 14:49: INJ, ONCE, Stop date: 08/29/20 9:49:00 CDT propofol 2021-0 No Route: IV, Mem oria (ANES) 08-29 Drug form: l 14:29: INJ, ONCE, Stop date: 08/29/20 9:29:00 CDT propofol 202-0 No Route: IV, Mem oria (ANES) 08-29 Drug form: l 14:29: INJ, ONCE, Stop date: 08/29/20 9:29:00 CDT propofol 2021-0 No Route: IV, Mem oria (ANES) 08-29 Drug form: l 14:29: INJ, ONCE, Stop date: 08/29/20 9:29:00 CDT propofol 202-0 No Route: IV, Mem oria (ANES) 08-29 Drug form: l 14:29: INJ, ONCE, Stop date: 08/29/20 9:29:00 CDT propofol 202-0 No Route: IV, Mem oria (ANES) 08-29 Drug form: l 14:29: INJ, ONCE, Stop date: 08/29/20 9:29:00 CDT propofol 202-0 No Route: IV, Mem oria (ANES) 08-29 Drug form: l 14:29: INJ, ONCE, Stop date: 08/29/20 9:29:00 CDT propofol 202-0 No Route: IV, Mem [...] 08-29 Drug form: l 14:18: INJ, ONCE, [place] 00 Stop date: 08/29/20 9:18:00 CDT heparin 0 No Route: IV, Caesar [...] Stop date: Limited # of times Acetaminoph 0 No 1,000 mg, M emoria en 08-29 Route: PO, l 14:01: Drug form: [place] 00 TAB, ONCE, Dosing Weight 97.273, kg, [...] lisa 08-29 Route: l 14:01: IVP, PRN, [place] Dosing Weight 97.273, kg, PRN Benzodiaze pine Reversal, Initial dose, Start date: 08/29/20 9:01:00 CDT, Duration: 30 day, Stop date: 09/28/20 9:00:00 CDT Naloxone 1-0 No 0.4 mg, Memori a 08-29 Route: l 14:01: IVP, [place] 00 Q2MIN, Dosing Weight 97.273, kg, PRN Narcotic Reversal, Start date: 08/29/20 9:01:00 CDT, Duration: 8 doses or times, Stop date: Limited # of times Ondansetron 1-0 No 4 mg, Memor ia 08-29 Route: l 14:01: IVP, ONCE, [place] 00 Dosing Weight 97.273, kg, PRN Nausea & Vomiting, Start date: 08/29/20 9:01:00 CDT Labetalol 1-0 No 10 mg, Memori a 08-29 Route: l 14:01: IVP, [place] 00 Q5Min, Dosing Weight 97.273, kg, PRN [...] lisa 08-29 Route: l 14:01: IVP, PRN, [place] Dosing Weight 97.273, kg, PRN Benzodiaze pine [...] 08-29 Route: l 14:01: IVP, ONCE, [place] Dosing Weight 97.273, kg, PRN Nausea & Vomiting, Start date: 08/29/20 9:01:00 CDT Labetalol 1-0 No 10 mg, Memori a 08-29 Route: l 14:01: IVP, [place] 00 Q5Min, Dosing Weight 97.273, kg, PRN [...] lisa 08-29 Route: l 14:01: IVP, PRN, [place] 00 Dosing Weight 97.273, kg, PRN Benzodiaze [...] ia 08-29 Route: l 14:01: IVP, ONCE, [place] 00 Dosing Weight 97.273, kg, PRN Nausea & Vomiting, Start date: 08/29/20 9:01:00 CDT Labetalol 2021-0 No 10 mg, Memori a 08-29 Route: l 14:01: IVP, [place] 00 Q5Min, Dosing Weight 97.273, kg, PRN Elevated BP, Start date: 08/29/20 9:01:00 CDT, Duration: 5 doses or times, Stop date: Limited # of times Acetaminoph 1-0 No 1,000 mg, M emoria en 08-29 Route: PO, l 14:01: Drug form: [place] 00 TAB, ONCE, Dosing Weight 97.273, kg, [...] Stop date: Limited # of times Labetalol 1-0 No 10 mg, Memori a 08-29 Route: l 14:01: IVP, [place] 00 Q5Min, Dosing Weight 97.273, kg, PRN [...] lisa 08-29 Route: l 14:01: IVP, PRN, [place] 00 Dosing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 2020-09-30 2020-09-30 [facility], 1.2.840.7 [id number] Methodi 00:00:00 00:00:[address] 3.430.2.7 Hospit a .3.988112 l .8 2020-09-21 2020-09-21 [facility] 1.2.840.1 1.2.674.694 1868 253438 Methodi 00:00:00 00:00:[address] 3.430.2.7 0.2.7.3.698 Ho spita .3.710835 084.8 l .8 2020-09-01 2020-09-09 Lab Ramiro Mitchell 1.2.840.1 [id number] 00093 30175 Methodi 10:13:59 01:05:[address] 3.430.2.7 Hospit a .3.735257 l .8 2020-09-06 2020-09-06 [facility] 1.2.840.1 [id number] 70163 36322 Methodi 17:42:30 23:59:[address] 3.430.2.7 Hospit a .3.976168 l .8 2020-09-06 2020-09-06 [facility], 1.2.840.1 [id number] 2100 702218 Methodi 16:50:00 17:41:00 Encounter Ray 63635.1.[address] 3.430.2.7 Hospit a .3.238954 l .8 2020-09-05 2020-09-05 Hospital [facility], 1.2.840.1 [id number] 2100 213327 Methodi 09:17:00 19:45:00 Encounter Ray 50601.1.[address] 3.430.2.7 Hospit a .3.015403 l .8 2020-09-05 2020-09-05 Surgery [facility], 1.2.840.1 [id number] 73900 06345 Methodi 11:30:00 13:15:[address] 3.430.2.7 Hospit a .3.546108 l .8 2020-09-05 2020-09-05 Anesthesia Remigio, 1.2.840.1 [id number] 291 [id number] Methodi 11:27:00 12:20:00 Event Johnathanthi 43488.1.1 243 s t V. 3.430.2.7 Hospit a .3.564879 l .8 2020-09-05 2020-09-05 Travel 1.2.840.1 1.2.463.072 5991 426155 Methodi 00:00:00 00:00:[address] 3.430.2.7 0.2.7.3.698 Ho spita .3.109158 084.8 l .8 2020-09-04 2020-09-04 Telephone Carol Ann, 1.2.840.1 [id number] Methodi 00:00:00 00:00:00 Sarai M. 94981.1.1 762 s t 3.430.2.7 Hospit a .3.775871 l .8 2020-09-02 2020-09-02 Telephone Meisenlion, 1.2.840.1 [id number] Methodi 00:00:00 00:00:00 Sarai M. 99038.1.1 344 s t 3.430.2.7 Hospit a .3.903775 l .8 2020-09-01 2020-09-01 [facility], 1.2.840.1 [id number] 68137 99314 Methodi 08:42:53 09:50:51 Visit Ray [address]3527.1.[address] 3.430.2.7 Hospit a .3.911054 l .8 2020-09-01 2020-09-01 Telephone Yazmin, 1.2.840.2 [id number] 21 [id number] Methodi 00:00:00 00:00:[address] 3.430.2.7 Hospit a .3.717454 l .8 2020-09-01 2020-09-01 Travel 1.2.840.1 1.2.351.135 4729 990654 Methodi 00:00:00 00:00:[address] 3.430.2.7 0.2.7.3.698 Ho spita .3.726705 084.8 l .8 2020-08-29 2020-08-30 [id number] 10:20:00 14:10:00 Outpatient [facility] 00 l [facility] 2020-08-29 2020-08-29 Outpatient [facility] CAR 7500 [facility] 05:20:00 05:20:00 2020-08-27 2020-08-27 [facility], 1.2.840.1 [id number] 2100 030540 Methodi 09:55:15 23:59:00 Encounter Ray [address]7230.1.[address] 3.430.2.7 Hospit a .3.936437 l .8 2020-08-27 2020-08-27 Travel 1.2.840.1 1.2.560.771 0228 383485 Methodi 00:00:00 00:00:[address] 3.430.2.7 0.2.7.3.698 Ho spita .3.799221 084.8 l .8 2020-08-21 2020-08-21 Travel 1.2.840.1 1.2.697.003 3209 504982 Methodi 00:00:00 00:00:[address] 3.430.2.7 0.2.7.3.698 Ho spita .3.706317 084.8 l .8 2020-08-19 2020-08-19 Telephone Meli, 1.2.840.1 [id number] 058 [id number] Methodi 00:00:00 00:00:[address] 3.430.2.7 Hospit a .3.492724 l .8 2020-08-19 2020-08-19 Travel 1.2.840.1 1.2.365.266 7946 325278 Methodi 00:00:00 00:00:[address] 3.430.2.7 0.2.7.3.698 Ho spita .3.423148 084.8 l .8 2020-08-18 2020-08-18 Orders Carol Ann, 1.2.840.1 [id number] 2 [id number] Methodi 00:00:00 00:00:00 Only Sarai Lieberman 19052.1.1 410 s t 3.430.2.7 Hospit a .3.340102 l .8 2020-08-18 2020-08-18 Travel 1.2.840.1 1.2.364.309 0072 005335 Methodi 00:00:00 00:00:[address] 3.430.2.7 0.2.7.3.698 Ho spita .3.173798 084.8 l .8 2020-08-15 2020-08-15 Abstract Clark, 1.2.840.1 [id number] 57252 51056 Methodi 00:00:00 00:00:[address] 3.430.2.7 Hospit a .3.024732 l .8 2020-07-02 2020-08-06 Clinical 1.2.840.1 [id number] 18453 12133 Methodi 10:40:46 01:45:[address] 3.430.2.7 Hospit a .3.573439 l .8 2020-07-30 2020-07-30 Travel 1.2.840.1 1.2.640.988 3925 136563 Methodi 00:00:00 00:00:[address] 3.430.2.7 0.2.7.3.698 Ho spita .3.754693 084.8 l .8 2020-07-28 2020-07-28 Office Yazmin, 1.2.840.1 [id number] 86353 68657 Methodi 08:35:45 10:11:52 Visit Ray 12321.1.[address] 3.430.2.7 Hospit a .3.229132 l .8 2020-07-28 2020-07-28 Telephone Clark, 1.2.840.1 [id number] 2099 643088 Methodi 00:00:00 00:00:[address] 3.430.2.7 Hospit a .3.753078 l .8 2020-07-28 2020-07-28 Travel 1.2.840.1 1.2.369.675 8962 046803 Methodi 00:00:00 00:00:[address] 3.430.2.7 0.2.7.3.698 Ho spita .3.320751 084.8 l .8 2020-07-25 2020-07-25 Telephone Carol Ann, 1.2.840.0 [id number] Methodi 00:00:00 00:00:00 Sarai Lieberman 65900.1.1 314 s t 3.430.2.7 Hospit a .3.979220 l .8 2020-07-25 2020-07-25 Travel 1.2.840.1 1.2.947.225 1657 748348 Methodi 00:00:00 00:00:[address] 3.430.2.7 0.2.7.3.698 Ho spita .3.503813 084.8 l .8 2020-07-23 2020-07-23 Clinical Tori, 1.2.840.1 [id number] 23407 50566 Methodi 08:39:40 08:44:40 Support Hoang 64221.1.[address] P. 3.430.2.7 Hospit a .3.800620 l .8 2020-07-23 2020-07-23 Travel 1.2.840.1 1.2.333.038 3818 739751 Methodi 00:00:00 00:00:[address] 3.430.2.7 0.2.7.3.698 Ho spita .3.625749 084.8 l .8 2020-07-11 2020-07-11 Travel 1.2.840.1 1.2.284.217 4526 715429 Methodi 00:00:00 00:00:[address] 3.430.2.7 0.2.7.3.698 Ho spita .3.715118 084.8 l .8 2020-07-02 2020-07-02 Telephone Yazmin, 1.2.840.6 [id number] 21 [id number] Methodi 00:00:00 00:00:[address] 3.430.2.7 Hospit a .3.106791 l .8 2020-07-02 2020-07-02 Travel 1.2.840.1 1.2.457.764 5374 472115 Methodi 00:00:00 00:00:[address] 3.430.2.7 0.2.7.3.698 Ho spita .3.385754 084.8 l .8 2020-06-23 2020-06-23 Office Yazmin, 1.2.840.1 [id number] 98524 62435 Methodi 09:36:17 11:00:44 Visit Ray 54445.1.[address] 3.430.2.7 Hospit a .3.333404 l .8 2020-06-23 2020-06-23 Telephone Clark, 1.2.840.1 [id number] 2099 574752 Methodi 00:00:00 00:00:[address] 3.430.2.7 Hospit a .3.070666 l .8 2020-06-23 2020-06-23 Travel 1.2.840.1 1.2.725.801 6648 146789 Methodi 00:00:00 00:00:[address] 3.430.2.7 0.2.7.3.698 Ho spita .3.025932 084.8 l .8 2020-06-09 2020-06-09 Telephone Yazmin, 1.2.840.5 [id number] Methodi 00:00:00 00:00:[address] 3.430.2.7 Hospit a .3.689057 l .8 2020-06-06 2020-06-06 Refill Ball, 1.2.840.1 [id number] 773367 0351 Methodi 00:00:00 00:00:00 Eh Lemus 85351.1.[address] 3.430.2.7 Hospit a .3.470547 l .8 2020-06-03 2020-06-03 Telephone Yazmin, 1.2.840.1 [id number] Methodi 00:00:00 00:00:[address] 3.430.2.7 Hospit a .3.940430 l .8 2020-06-02 2020-06-02 Telephone Yazmin, 1.2.840.6 [id number] [id number] Methodi 00:00:00 00:00:[address] 3.430.2.7 Hospit a .3.629513 l .8 2020-05-13 2020-05-13 Orders [facility], 1.2.840.1 [id number] 2099 232001 Methodi 00:00:00 00:00:00 Only Historical 31275.1.1 108 s t 3.430.2.7 Hospit a .3.116357 l .8 2020-05-09 2020-05-09 Telephone [facility], 1.2.840.1 [id number] Methodi 00:00:00 00:00:00 Sarai Corbin. 57148.1.1 660 s t 3.430.2.7 Hospit a .3.059037 l .8 2020-05-09 2020-05-09 Telephone [facility], 1.2.840.0 [id number] Methodi 00:00:00 00:00:[address] 3.430.2.7 Hospit a .3.669856 l .8 2020-05-08 2020-05-08 Telephone [facility], 1.2.840.6 [id number] Methodi 00:00:00 00:00:[address] 3.430.2.7 Hospit a .3.930377 l .8 2020-05-07 2020-05-07 Telephone [facility], 1.2.840.2 [id number] Methodi 00:00:00 00:00:[address] 3.430.2.7 Hospit a .3.479162 l .8 2020-05-05 2020-05-05 Telephone [facility], 1.2.840.0 [id number] Methodi 00:00:00 00:00:[address] 3.430.2.7 Hospit a .3.066515 l .8 2020-04-25 2020-05-03 [facility], 1.2.840.1 [id number] 2099 590226 Methodi 17:33:00 13:39:00 Encounter Ray 67770.1.[address] 3.430.2.7 Hospit a .3.536961 l .8 2020-04-28 2020-04-28 Anesthesia Tomas Pinon 1.2.840.1 [id number] Methodi 13:38:00 19:40:00 Event Justine Catalan 99842.1.[address] 3.430.2.7 Hospit a .3.905953 l .8 2020-04-28 2020-04-28 Surgery [facility], 1.2.840.1 [id number] 08834 88327 Methodi 13:00:00 17:10:[address] 3.430.2.7 Hospit a .3.607854 l .8 2020-04-25 2020-04-25 [facility], 1.2.840.1 [id number] 2099 366610 Methodi 10:00:00 17:32:00 Encounter Ray [address]29.1.[address] 3.430.2.7 Hospit a .3.168822 l .8 2020-04-25 2020-04-25 [facility], 1.2.840.1 [id number] 87638 80305 Methodi 11:43:50 13:44:26 Visit Ray 37538.1.[address] 3.430.2.7 Hospit a .3.143165 l .8 2020-04-25 2020-04-25 Travel 1.2.840.1 1.2.685.093 6110 795415 Methodi 00:00:00 00:00:[address] 3.430.2.7 0.2.7.3.698 Ho spita .3.374037 084.8 l .8 2020-04-24 2020-04-24 Prep for Carol Ann, 1.2.840.1 [id number] 2 [id number] Methodi 00:00:00 00:00:00 Surgery Sarai MChelsie 34812.1.1 524 s t 3.430.2.7 Hospit a .3.625744 l .8 2020-04-22 2020-04-22 Telephone Meli, 1.2.840.1 [id number] 654 [id number] Methodi 00:00:00 00:00:[address] 3.430.2.7 Hospit a .3.436284 l .8 2020-04-22 2020-04-22 Travel 1.2.840.1 1.2.369.592 4999 680611 Methodi 00:00:00 00:00:[address] 3.430.2.7 0.2.7.3.698 Ho spita .3.697566 084.8 l .8 2020-04-21 2020-04-21 Emergency [facility] 1.2.840.1 [id number] 2 [id number] Methodi 06:51:00 10:43:[address] 3.430.2.7 Hospit a .3.375528 l .8 2020-04-21 2020-04-21 Orders Carol Ann, 1.2.840.1 [id number] 21 [id number] Methodi 00:00:00 00:00:00 Only Sarai Lieberman 90649.1.1 550 s t 3.430.2.7 Hospit a .3.364309 l .8 2020-04-16 2020-04-16 Telephone Carol Ann, 1.2.840.1 [id number] Methodi 00:00:00 00:00:00 Sarai Lieberman 65172.1.1 673 s t 3.430.2.7 Hospit a .3.884260 l .8 2020-04-10 2020-04-10 Telephone Yazmin, 1.2.840.1 [id number] 21 [id number] Methodi 00:00:00 00:00:[address] 3.430.2.7 Hospit a .3.270372 l .8 2020-04-07 2020-04-07 Telephone Nahum, 1.2.840.1 [id number] 2099 028971 Methodi 00:00:00 00:00:[address] 3.430.2.7 Hospit a .3.168575 l .8 2020-04-01 2020-04-01 Orders Provider, 1.2.840.1 [id number] 2100 297674 Methodi 00:00:00 00:00:00 Only Historical 49436.1.1 049 s t 3.430.2.7 Hospit a .3.718240 l .8 2020-03-31 2020-03-31 Travel 1.2.840.1 1.2.841.724 3960 343731 Methodi 00:00:00 00:00:[address] 3.430.2.7 0.2.7.3.698 Ho spita .3.771716 084.8 l .8 2020-03-27 2020-03-27 Telephone Paula, Min 1.2.840.1 [id number] 21 [id number] Methodi 00:00:00 00:00:[address] 3.430.2.7 Hospit a .3.737071 l .8 Results Test Description Test Time Test Comments Results Result Comments Source Gastrointestinal panel 2020-12-09 04:35:05 Test Item Value Reference Range Interpretation Comme nts Adenovirus 40/41 PCR (test code = Not Detected Specimen InformationSpecimen 4004) Source: StoolSp ecimen Site: Nonpreserved Astrovirus PCR [...] Rotavirus PCR (test code = Not Detected 4621422) Salmonella PCR (test code = 4783) Not [...] PCR (test code = Not Detected 7124) [facility] He4944-12-04 19:17:40EXAMINATION: XR ABDOMEN 1 VW CLINICAL HISTORY: [...] Osseous structures are stable. Cholecystectomy clips are noted.[id number] [place] < 1 Ddgh8982-77-78 19:41:02EXAMINATION: OR FL < 1 HOUR C-arm fluoroscopy was requested in OR. Location: [facility] OR room 6 Procedure: EGD WITH BOTOX [...] arm fluoroscopy was requested in OR. Location: [facility] OR room 6 Procedure: EGD WITH BOTOX INJECTION INTO THE PYLORUS, ENDOFLIP, ON TABLE ESOPHAGRAM (N/A ) Start: 1140 End:1222 FluoroTime: .19sec Dose: 7.8mGy Tech: A.BIMPRESSION:Intraoperative fluoroscopic images. Radiologist was not present during the examination.Separate operative report will be issued by the physician performingthe procedure.[id number] Hospital[facility] request 2020-09-08 19:30:47 Test Item Value Reference Range Interpretation Comments Case number (test [id number] code = 1803722) Surgical pathology See link below for PDF report (test code = Lab Report 2255) Result status (test This is Supplemental code = 5005369) Report for [id number] [facility] 1 Vw [id number] 23:06:58EXAMINATION: XR CHEST 1 VW PORTABLE HISTORY: [...] enlarged, similar to prior. Bilateral shoulder arthroplasties. [facility]-[id number] Interface, Radiology Results - 09/06/2020 6:09PM CDT EXAMINATION: XR CHEST [...] silhouette is enlarged, similar to prior.Bilateral shoulder arthroplasties.[facility]-[id number] Santa [facility] Hospital – San MarcosHggkafmyTiotfk9681-25-78 16:47:23Kirit Flood MD 09/05/2020 11:48 [address] Location: [...] RSI: Yes Number of Attempts at Approach: [address] [place] [address] 12 [id number] 23:21:56 Test Item Value Reference Range Interpretation [...] T wave abnormality, consider anterior ischemia-Abnormal ECG- [facility] qualitative [id number] 22:48:41 Test Item Value Reference Range Interpretation Comments Interpretation (test Negative results do code = 9047494) not preclude 2019-nCoV infection and should not be used as the sole basis for treatment or other patient management decisions. Negative results must be combined with clinical observations, patient history, and epidemiological information. COVID-19 qualitative Not-Detected Not-Detected RT-PCR result (test code = 89200-3) COVID-19 qualitative See link below for C ase Number: RT-PCR (test code = PDF Lab Report [id number]) [facility]2021-04-09 16:31:00 Test Item Value Reference Range Interpretation Comments POC Activated Clotting Time (test code 153 s = POC Activated Clotting Time) [address]04-09 16:31:00 Test Item Value Reference Range Interpretation Comments POC Activated Clotting Time (test code 153 s = POC Activated Clotting Time) [place] 267831-04-09 16:31:00 Test Item Value Reference Range Interpretation Comments POC Activated Clotting Time (test code 153 s = POC Activated Clotting Time) [address]04-09 16:31:00 Test Item Value Reference Range Interpretation Comments POC Activated Clotting Time (test code 153 s = POC Activated Clotting Time) [place] 267831-04-09 16:31:00 Test Item Value Reference Range Interpretation Comments POC Activated Clotting Time (test code 153 s = POC Activated Clotting Time) [place] 267831-04-09 16:31:00 Test Item Value Reference Range Interpretation Comments POC Activated Clotting Time (test code 153 s = POC Activated Clotting Time) [address]04-09 16:31:00 Test Item Value Reference Range Interpretation Comments POC Activated Clotting Time (test code 153 s = POC Activated Clotting Time) [place] 267831-04-09 14:37:00 Test Item Value Reference Range Interpretation Comments POC Activated Clotting Time (test code 454 s = POC Activated Clotting Time) [place] 267831-04-09 14:37:00 Test Item Value Reference Range Interpretation Comments POC Activated Clotting Time (test code 454 s = POC Activated Clotting Time) [address]04-09 14:37:00 Test Item Value Reference Range Interpretation Comments POC Activated Clotting Time (test code 454 s = POC Activated Clotting Time) [address]04-09 14:37:00 Test Item Value Reference Range Interpretation Comments POC Activated Clotting Time (test code 454 s = POC Activated Clotting Time) [address]04-09 14:37:00 Test Item Value Reference Range Interpretation Comments POC Activated Clotting Time (test code 454 s = POC Activated Clotting Time) [address]04-09 14:37:00 Test Item Value Reference Range Interpretation Comments POC Activated Clotting Time (test code 454 s = POC Activated Clotting Time) [facility]rDFWKJEIGGZ7487-95-19 14:37:00 Test Item Value Reference Range Interpretation Comments POC Activated Clotting Time (test code 454 s = POC Activated Clotting Time) [facility] HospitalHfjbxwuCMAJGVUYJN7110-75-51 14:13:00 Test Item Value Reference Range Interpretation Comments POC Activated Clotting Time (test code 354 s = POC Activated Clotting Time) [facility] HospitalNavvbrcHZOLYHWGPX0027-28-58 14:13:00 Test Item Value Reference Range Interpretation Comments POC Activated Clotting Time (test code 354 s = POC Activated Clotting Time) [facility] HospitalDqjzadrAJZVUBBCUP0163-79-45 14:13:00 Test Item Value Reference Range Interpretation Comments POC Activated Clotting Time (test code 354 s = POC Activated Clotting Time) [facility] HospitalLanzylzINHGHDPQOH3146-50-64 14:13:00 Test Item Value Reference Range Interpretation Comments POC Activated Clotting Time (test code 354 s = POC Activated Clotting Time) [facility] HospitalUxnfcosJYCXPBAADD8955-33-53 14:13:00 Test Item Value Reference Range Interpretation Comments POC Activated Clotting Time (test code 354 s = POC Activated Clotting Time) [facility] HospitalZldsaiqEXUZCXTMJL2411-68-88 14:13:00 Test Item Value Reference Range Interpretation Comments POC Activated Clotting Time (test code 354 s = POC Activated Clotting Time) [facility] HospitalDabnlfiFDGTMMQXJC9521-61-25 14:13:00 Test Item Value Reference Range Interpretation Comments POC Activated Clotting Time (test code 354 s = POC Activated Clotting Time) [facility] WFERKQA5666-98-77 10:37:00Negative (08/29/20 5:37 AM) [facility] KQUXZ5576-39-13 10:37:89885Xztrbyys HermannCHEM PANEL 2020-08-29 10:37:0028[facility] HermannCHEM CZMXO8451-73-93 10:37:001.01[facility] HermannCHEM NQPLH9767-60-13 10:37:28661Yltwpleo HermannCHEM XKJCY2322-83-84 10:37:003.8[facility] HermannCHEM HKVCO4799-08-93 10:37:50911Rglgtezo HermannCHEM RTXEO0642-98-23 10:37:0028[facility] HermannCHEM LSAOE4794-46-83 10:37:009.8 [facility]annCHEM ZJHKD7866-93-96 10:37:0011.8[facility] HermannCHEM PANEL 2020-08-29 10:37:0059[facility] HermannCHEM CIHOH3363-18-52 10:37:002.9[facility] FmecgvmTJKCVBPKKA3737-72-82 10:37:006.8[facility] VfhjxsfIHWXFVLQZU6473-72-90 10:37:004.47[facility] OwkvgubIUVXVLXWVQ1036-17-53 10:37:0010.6[facility] ZTIEZQWMZV4135-94-96 10:37:0034.0[facility] CtdimrtUGARFSFMRB2594-51-98 10:37:00 76.1[facility] UrvrxssRZZMGERECI5186-33-21 10:37:00 Test Item Value Reference Range Interpretation Comments MCH (test code = MCH) 23.8 pg 27.0-31.0 [facility] GuhvzxxIOZZYWYVBO3468-58-83 10:37:0031.3[facility] HermannHEMATOLOGY 2020-08-29 10:37:0018.2[facility] QtpavarGONZBEZUCT0188-11-68 10:37:33218Qmggeuol RcoapdcXSQVECFJXG5942-09-17 10:37:007.5[facility] KncktvoBTPNBYFFCQ4482-14-65 10:37:00 Test Item Value Reference Range Interpretation Comments PT (test code = PT) 12.8 s 12.0-14.7 [facility] KbgbujbCKHWJEVTXM0618-18-11 10:37:00 Test Item Value Reference Range Interpretation Comments INR (test code = INR) 0.97 1 0.85-1.17 [facility] YlpfevtNHNEHQUXNA2187-42-74 10:37:00 Test Item Value Reference Range Interpretation Comments PTT (test code = PTT) 25.0 s 22.9-35.8 [facility] AixlsqeVPQTWAWEOI6608-16-66 10:37:0070.5[facility] HermannHEMATOLOGY 2020-08-29 10:37:0018.8[facility] CcuoiyoCSLXJZCNOD4250-12-10 10:37:009.5[facility] UjekwsyZYDPLSZUWM9282-59-34 10:37:000.9[facility] ZpzcianKYGXCMZTIO2490-40-10 10:37:000.3[facility] GxngnrzJSTYGSQCXX6716-89-15 10:37:004.8[facility] HCBZVDMTGU5337-71-04 10:37:001.3[facility] NiwxsytDWEUPDSRBV3798-24-45 10:37:000.6 [facility] AkeeumnHPEGGTHGNZ1719-04-96 10:37:000.1[facility] HermannHEMATOLOGY 2020-08-29 10:37:001+ *ABN*(08/29/20 5:37 AM)[facility] NvgnsiqCVGYNCTOKD8499-58-22 10:37:00Not Detected (08/29/20 5:37 AM)[facility]annBLOOD BANK RESULTS 2020-08-29 10:37:00Negative (08/29/20 5:37 AM)[facility] HermannCHEM AQZMD8168-38-11 10:37:33656Rdprxupc HermannCHEM PLWZQ1400-42-16 10:37:0028[facility] HermannCHEM KSJFS8750-45-07 10:37:001.01[facility] HermannCHEM WIPIB3787-64-41 10:37:32212 [facility] HermannCHEM TVTIO0835-97-49 10:37:003.8[facility] HermannCHEM PANEL 2020-08-29 10:37:32604Ylauyodp HermannCHEM NGYDB4189-19-24 10:37:0028[facility] HermannCHEM MXROH8436-77-30 10:37:009.8[facility] HermannCHEM MRKXK7141-38-87 10:37:0011.8[facility] HermannCHEM AXMMD0872-87-35 10:37:0059[facility] HermannCHEM GOCYX6644-60-79 10:37:002.9[facility] KaspinqXRWFMZGACW5944-97-68 10:37:006.8 [facility] IducsolKLVKEFUKZX9478-95-70 10:37:004.47[facility] HermannHEMATOLOGY 2020-08-29 10:37:0010.6[facility] OmavhocTCEGAYTXMH4822-67-84 10:37:0034.0[facility] ClvacqjCBVAYXEZUD2568-73-83 10:37:0076.1[facility] PuwjkagNQDFAUOUBN3719-73-17 10:37:00 Test Item Value Reference Range Interpretation Comments MCH (test code = MCH) 23.8 pg 27.0-31.0 [facility] XfxkefmAIJYDXOMWG9341-16-06 10:37:0031.3[facility]annHEMATOLOGY 2020-08-29 10:37:0018.2[facility] IdesemvNLCWHOTIHV0198-02-00 10:37:01191Ajpqhhrh XoaeillZEASMVLZSC5283-62-93 10:37:007.5[facility] JlppdeyZDWKOUNUMC0206-11-86 10:37:00 Test Item Value Reference Range Interpretation Comments PT (test code = PT) 12.8 s 12.0-14.7 [facility] SxgpjnsNYGRFYFZCI4322-53-46 10:37:00 Test Item Value Reference Range Interpretation Comments INR (test code = INR) 0.97 1 0.85-1.17 [facility] QzcrpswHMGNAXDNSF1392-81-31 10:37:00 Test Item Value Reference Range Interpretation Comments PTT (test code = PTT) 25.0 s 22.9-35.8 [facility] OpzjsytGRJZQWJSIV1784-53-01 10:37:0070.5[facility]annHEMATOLOGY 2020-08-29 10:37:0018.8[facility] SuvuuhsDLDTTELWYW7489-80-69 10:37:009.5[facility] OlydislVKMJHUVURD9446-71-57 10:37:000.9[facility] OyepcfgDLFOPCLTIK1046-48-23 10:37:000.3[facility] HgwlycdLWXGWISWJV0092-00-57 10:37:004.8[facility] MBDCPOJLTT6996-35-25 10:37:001.3[facility] AuuigchXURVUQVGSW3155-37-90 10:37:000.6 [facility] YylwozdRNOJICALHI9658-04-89 10:37:000.1[facility]annHEMATOLOGY 2020-08-29 10:37:001+ *ABN*(08/29/20 5:37 AM)[facility] KqxmvboEJAEZHUDVM9958-35-76 10:37:00Not Detected (08/29/20 5:37 AM)[facility]annBL[facility]OD BANK RESULTS 2020-08-29 10:37:00Negative (08/29/20 5:37 AM)[facility] HermannCHEM EBYEN5417-45-46 10:37:49474Vymkohnx HermannCHEM DXKNR2406-64-39 10:37:0028[facility]annCHEM SXOEB9717-56-01 10:37:001.01[facility]annCHEM BBJAI2121-90-13 10:37:97160 [facility]annCHE[facility] ZRSWA1993-89-42 10:37:003.8[facility]annCHEM PANEL 2020-08-29 10:37:38202Srrkwtue HermannCHEM ECXYL7962-62-49 10:37:0028[facility]annCHEM MGAHT2050-26-85 10:37:009.8[facility]annCHEM UXWVW5043-66-45 10:37:0011.8[facility] HermannCHEM RUKOW7372-37-57 10:37:0059[facility]annCHEM BVJJX8155-74-36 10:37:002.9[facility] IlxgddvUVGTRHDVEG5554-50-14 10:37:006.8 [facility] AguvpcxFTSDFLGUVX7655-53-03 10:37:004.47[facility]annHEMATOLOGY 2020-08-29 10:37:0010.6[facility] TxpqppuLTXTMCQAZG4515-00-62 10:37:0034.0[facility] UeyltejMKZQFMTJTO0373-54-61 10:37:0076.1[facility] HschnduVADKLXQGOJ0641-51-18 10:37:00 Test Item Value Reference Range Interpretation Comments MCH (test code = MCH) 23.8 pg 27.0-31.0 [facility] PdwhyzlQTVBKCOPTK7388-27-07 10:37:0031.3[facility]annHEMATOLOGY 2020-08-29 10:37:0018.2[facility] OyfuxqfDOPCOSQEHG0612-52-14 10:37:64670Ubyeujox ZmcsqzeAYABZRYXZT5387-97-00 10:37:007.5[facility] WcsccsvVJTSFSWYXE7983-27-95 10:37:00 Test Item Value Reference Range Interpretation Comments PT (test code = PT) 12.8 s 12.0-14.7 [facility] PjdgkaySJFXCDAEYU3182-96-74 10:37:00 Test Item Value Reference Range Interpretation Comments INR (test code = INR) 0.97 1 0.85-1.17 [facility] TmxtbwgMJTCLHLQYF6079-57-42 10:37:00 Test Item Value Reference Range Interpretation Comments PTT (test code = PTT) 25.0 s 22.9-35.8 [facility] XzvnbdlOZMGZCNHGH2697-27-29 10:37:0070.5[facility]annHEMATOLOGY 2020-08-29 10:37:0018.8[facility] HfnpsxjSUTEPKJFCO6172-80-67 10:37:009.5[facility] KnvxvhlYUUPXBHBVO0389-78-47 10:37:000.9[facility] QgpzjqgGDXXCMVUDD8099-47-82 10:37:000.3[facility] DtdoglsROUQVKKHWQ6525-92-55 10:37:004.8[facility] JIHZTLGRXJ1752-64-40 10:37:001.3[facility] ZaikhhlDURHGBNRIC6225-97-07 10:37:000.6 [facility] JuekrxxUIYBAQVVSW7327-87-28 10:37:000.1[facility]annHEMATOLOGY 2020-08-29 10:37:001+ *ABN*(08/29/20 5:37 AM)[facility] PjnjxxuSQMQTBENBK6787-57-67 10:37:00Not Detected (08/29/20 5:37 AM)[facility]annBLOOD BANK RESULTS 2020-08-29 10:37:00Negative (08/29/20 5:37 AM)[facility]annCHEM PNYCY0349-21-78 10:37:21199Ogpzpwcr HermannCHEM NASFV9174-16-59 10:37:0028[facility]annCHEM SCOQT1100-21-94 10:37:001.01[facility]annCHEM CHLDV2582-67-85 10:37:81435 [facility]annCHEM DBQWC0936-49-96 10:37:003.8[facility] HermannCHEM PANEL 2020-08-29 10:37:42313Qltqzswc HermannCHEM WGSAY7655-98-38 10:37:0028[facility]annCHEM AYYMY5613-47-16 10:37:009.8[facility] HermannCHEM DOLIS8273-33-57 10:37:0011.8[facility] HermannCHEM QLIEY4472-62-02 10:37:0059[facility]annCHEM BJTPI7078-40-69 10:37:002.9[facility] OpaeabqJJDPGGYDBX7254-87-16 10:37:006.8 [facility] XbtjowvZVAYVXEEOX5453-88-00 10:37:004.47[facility]annHEMATOLOGY 2020-08-29 10:37:0010.6[facility] QoflxwaCAUEIPTRSK0792-11-28 10:37:0034.0[facility] LusnpmlULNVHLLFDE2197-31-65 10:37:0076.1[facility] EqcxshsWMOUYMWWEI5505-14-34 10:37:00 Test Item Value Reference Range Interpretation Comments MCH (test code = MCH) 23.8 pg 27.0-31.0 [facility] FwjfwjhDHRHOTZRZM8699-08-10 10:37:0031.3[facility]annHEMATOLOGY 2020-08-29 10:37:0018.2[facility] PxrksuyDOWKBOFUIC2644-98-44 10:37:18637Wocomior XcqrwdxDACLXJLRKV0445-43-54 10:37:007.5[facility] AvxrzamJOZTFYQXZU8104-69-68 10:37:00 Test Item Value Reference Range Interpretation Comments PT (test code = PT) 12.8 s 12.0-14.7 [facility] QhccjejBMMTAIXSRI9406-49-68 10:37:00 Test Item Value Reference Range Interpretation Comments INR (test code = INR) 0.97 1 0.85-1.17 [facility] YopvpdaPZBTFXLRHZ4216-03-36 10:37:00 Test Item Value Reference Range Interpretation Comments PTT (test code = PTT) 25.0 s 22.9-35.8 [facility] RcfcusxSUSQAGSNDA7793-56-66 10:37:0070.5[facility]annHEMATOLOGY 2020-08-29 10:37:0018.8[facility] JsvcwlcSMUTTWVPDQ4863-03-19 10:37:009.5[facility] GmrlletAHHLCKQYXT8255-55-26 10:37:000.9[facility] IrctdurIZSVQLEAYP9222-69-20 10:37:000.3[facility] JqtbdzfXCDIYEXDSE0205-96-26 10:37:004.8[facility] DQUBWPOQLK9782-76-78 10:37:001.3[facility] YxkjvhfYWBRZWORAD6374-80-63 10:37:000.6 [facility] RygdwdoDQAMKOPQRB6355-80-62 10:37:000.1[facility]annHEMATOLOGY 2020-08-29 10:37:001+ *ABN*(08/29/20 5:37 AM)[facility] YvdhojnDUTOBPHIDW5027-77-36 10:37:00Not Detected (08/29/20 5:37 AM)[facility]annBLOOD BANK RESULTS 2020-08-29 10:37:00Negative (08/29/20 5:37 AM)[facility] HermannCHEM MLGHH7830-68-55 10:37:60209Bhyjalmw HermannCHEM HBZQQ4180-05-85 10:37:0028[facility] HermannCHEM SCCZC2107-68-25 10:37:001.01[facility] HermannCHEM VJQHZ3626-76-33 10:37:26056 [facility]annCHEM APLUH7419-16-07 10:37:003.8[facility] HermannCHEM PANEL 2020-08-29 10:37:99103Ayvjhatp HermannCHEM FJASG6302-97-79 10:37:0028[facility] HermannCHEM GKBGB7877-88-78 10:37:009.8[facility] HermannCHEM ISUBG3820-36-27 10:37:0011.8[facility] HermannCHEM AKQHZ9136-44-97 10:37:0059[facility] HermannCHEM AQZUL8112-53-99 10:37:002.9[facility] XjlctooEGMIGUYTBZ4757-76-57 10:37:006.8 [facility] YdvxwrcIMUVOCXVRY6552-67-97 10:37:004.47[facility]annHEMATOLOGY 2020-08-29 10:37:0010.6[facility] YgpidtjZPQAXQPTLM6762-13-43 10:37:0034.0[facility] WmdjejyLAHREUPMNQ8726-75-46 10:37:0076.1[facility] UwpbekcADDSMTEQDX2855-08-19 10:37:00 Test Item Value Reference Range Interpretation Comments MCH (test code = MCH) 23.8 pg 27.0-31.0 [facility] XbrzasgBMRGFPCVMN5918-88-19 10:37:0031.3[facility] HermannHEMATOLOGY 2020-08-29 10:37:0018.2[facility] IqgfjqnYTYWBGIKJI3116-73-30 10:37:33478Jcxhnrgh CqonssxRBZLGWCTGC7340-01-11 10:37:007.5[facility] PkqehddWEKBJDYRIA8935-21-73 10:37:00 Test Item Value Reference Range Interpretation Comments PT (test code = PT) 12.8 s 12.0-14.7 [facility] ItxrwnaRPMCYLLQDU4371-87-59 10:37:00 Test Item Value Reference Range Interpretation Comments INR (test code = INR) 0.97 1 0.85-1.17 [facility] WreyhxiGTBKMDKBXP9003-98-12 10:37:00 Test Item Value Reference Range Interpretation Comments PTT (test code = PTT) 25.0 s 22.9-35.8 [facility] MhkdyqlYMTPGQTRQF4482-76-15 10:37:0070.5[facility] HermannHEMATOLOGY 2020-08-29 10:37:0018.8[facility] DoiwdokTUNNKXJGUQ2516-26-48 10:37:009.5[facility] YnwsmvhYAWRTOURCE8812-26-32 10:37:000.9[facility] TmywscdJPDYCVSUNA2048-86-45 10:37:000.3[facility] XsicbgcIEFVTCFFOX9307-36-83 10:37:004.8[facility] XGMWQWKCLQ3814-17-36 10:37:001.3[facility] LwdrmyhJZYUPKYIPS8366-07-65 10:37:000.6 [facility] QpgbgyeCPRQLTUIFZ2623-58-65 10:37:000.1[facility]annHEMATOLOGY 2020-08-29 10:37:001+ *ABN*(08/29/20 5:37 AM)[facility] LvubetlGTVEOVDENU3868-95-14 10:37:00Not Detected (08/29/20 5:37 AM)[facility]annBLOOD BANK RESULTS 2020-08-29 10:37:00Negative (08/29/20 5:37 AM)[facility] HermannCHEM RZIMB0512-57-69 10:37:37034Yeycgjxw HermannCHEM HLDDJ7282-20-83 10:37:0028[facility] HermannCHEM PQZVE8859-17-44 10:37:001.01[facility] HermannCHEM TVYGF5867-56-36 10:37:33501 [facility]annCHEM SSJCE3079-98-99 10:37:003.8[facility] HermannCHEM PANEL 2020-08-29 10:37:25186Bxzryllk HermannCHEM HYCMA1294-70-97 10:37:0028[facility] HermannCHEM HNBLF3716-23-24 10:37:009.8[facility] HermannCHEM YWYAJ4057-17-85 10:37:0011.8[facility] HermannCHEM FKEDT4535-35-20 10:37:0059[facility] HermannCHEM OQMED0126-06-34 10:37:002.9[facility] TtsjhudSTGIAMFKLB3086-65-52 10:37:006.8 [facility] DwgikcgIGHOUAOKAK8300-89-84 10:37:004.47[facility]annHEMATOLOGY 2020-08-29 10:37:0010.6[facility] DojezucCKENYZAQCH3881-66-88 10:37:0034.0[facility] AekrtyfNNEQJNTGZY7275-16-63 10:37:0076.1[facility] XcdntgxGNESHXJHPE4409-48-28 10:37:00 Test Item Value Reference Range Interpretation Comments MCH (test code = MCH) 23.8 pg 27.0-31.0 [facility] JpawcqiIOOJQWKTCA8574-55-15 10:37:0031.3[facility]annHEMATOLOGY 2020-08-29 10:37:0018.2[facility] UzcjjwfWKKTFWLGBF5732-79-60 10:37:70101Sxdsmlha OoduzmzSFHNXMYENA2647-33-35 10:37:007.5[facility] DijmyygBMMQYHMIDJ6319-08-11 10:37:00 Test Item Value Reference Range Interpretation Comments PT (test code = PT) 12.8 s 12.0-14.7 [facility] FlwrpwfEBNXFBNBYM4503-15-01 10:37:00 Test Item Value Reference Range Interpretation Comments INR (test code = INR) 0.97 1 0.85-1.17 [facility] TzbjembOIISESBTDB2239-74-01 10:37:00 Test Item Value Reference Range Interpretation Comments PTT (test code = PTT) 25.0 s 22.9-35.8 [facility] WbmstsoVDKGYEKQPQ2055-04-31 10:37:0070.5[facility]annHEMATOLOGY 2020-08-29 10:37:0018.8[facility] NccmbqsSLTJTMMGNE1763-05-04 10:37:009.5[facility] XdwihqkKAVKIVQHOD6400-95-85 10:37:000.9[facility] UxiecruZBCZFCHBLT4896-18-23 10:37:000.3[facility] DulipsxPYXGRTUQHD0175-45-79 10:37:004.8[facility] HNLDBAOMDP0268-46-13 10:37:001.3[facility] JfqhptxNQVMVCPXPO1931-48-66 10:37:000.6 [facility] XrqqtouQOEGFSEQUE4828-20-85 10:37:000.1[facility]annHEMATOLOGY 2020-08-29 10:37:001+ *ABN*(08/29/20 5:37 AM)[facility] CakuonyMOBPBRZRZD6712-73-37 10:37:00Not Detected (08/29/20 5:37 AM)[facility]annBLOOD BANK RESULTS 2020-08-29 10:37:00Negative (08/29/20 5:37 AM)[facility] HermannCHEM UOAND2662-21-73 10:37:04840Ijyldzet HermannCHEM EMWRF4206-16-87 10:37:0028[facility] HermannCHEM KBSAB3273-66-77 10:37:001.01[facility] HermannCHEM WCMUS6878-81-27 10:37:29671 [facility]annCHEM PEYDI9547-32-41 10:37:003.8[facility] HermannCHEM PANEL 2020-08-29 10:37:48869Ohaeztxo HermannCHEM FGFSN2286-85-88 10:37:0028[facility] HermannCHEM DDIMM6861-01-70 10:37:009.8[facility] HermannCHEM SOHND4724-38-69 10:37:0011.8[facility] HermannCHEM ZNLZJ4773-96-90 10:37:0059[facility] HermannCHEM PKKAI0678-10-55 10:37:002.9[facility] UrqwmusDTAOPLZEJY1475-57-06 10:37:006.8 [facility] GzkknmlILOGQCRJZL8771-94-18 10:37:004.47[facility]annHEMATOLOGY 2020-08-29 10:37:0010.6[facility] JrmzfyxUMPCEIZOGS5637-17-80 10:37:0034.0[facility] NghidmlJYGNVVQCZQ7128-13-88 10:37:0076.1[facility] HbrotcdVXFWPLXTPF1832-24-08 10:37:00 Test Item Value Reference Range Interpretation Comments MCH (test code = MCH) 23.8 pg 27.0-31.0 [facility] IjmshcmWOJCXEPIXV5011-36-76 10:37:0031.3[facility]annHEMATOLOGY 2020-08-29 10:37:0018.2[facility] RnxcfwnRCJQDKABGI5142-98-68 10:37:22610Kfthffyd WvssrliFWEJSMKEVG7253-42-02 10:37:007.5[facility] OpwbjilZLAEDYXDEG0790-60-64 10:37:00 Test Item Value Reference Range Interpretation Comments PT (test code = PT) 12.8 s 12.0-14.7 [facility] YlejditLBVIQEMJOU0087-78-98 10:37:00 Test Item Value Reference Range Interpretation Comments INR (test code = INR) 0.97 1 0.85-1.17 [facility] EfgkpvzSHFKHNJTKS1308-53-29 10:37:00 Test Item Value Reference Range Interpretation Comments PTT (test code = PTT) 25.0 s 22.9-35.8 [facility] JqmppdmXMWVISVVYQ1145-40-45 10:37:0070.5[facility]annHEMATOLOGY 2020-08-29 10:37:0018.8[facility] TabnzfxEVDFDLSLEE2077-15-82 10:37:009.5[facility] GhgaouvPTDEYTALVR7102-44-72 10:37:000.9[facility] BvhigidPGZCZHIHRO5925-00-79 10:37:000.3[facility] PmbndbkFBMKSAFAMH9665-35-80 10:37:004.8[facility] MIDEVSPMNF9555-90-82 10:37:001.3[facility] IptgkjhTBPSFQPEBR3521-36-18 10:37:000.6 [facility] HspswdfZHVURIEGHR4516-57-51 10:37:000.1[facility] HermannHEMATOLOGY 2020-08-29 10:37:001+ *ABN*(08/29/20 5:37 AM)[facility] FdfymzuDESYEJRKPW4504-77-48 10:37:00Not Detected (08/29/20 5:37 AM)[facility] 2020-08-27 23:14:39PROCEDURE: NM GASTRIC EMPTYING [...] complete emptying by 4 hours. [facility]-[id number] Interface, Radiology Results [facility] - 08/27/2020 6:17 PM CDT PROCEDURE: NM [...] complete emptying by 4 hours. [facility]-[id number] HospitalMiscellaneous referral test 2020-05-09 21:24:58 Test Item Value Reference Range Interpretation Comments Misc test HIV-1 RNA QUAL PCR name (test code = 2566) Misc test see note Human Immunodef iciency result (test Virus 1 (HIV-1) by code = 1730) Qualitative Mortgage Sales Manager-M ediated Amplification ( TMA) [facility] test code 6578533 HIV-1 by Qualit ative TMA See Note SOURCE/SPECIMEN PLASMA HIV-1 RNA, QUAL ITATIVE TMA HIV-1 RNA, QL TMA T PICKING TECH Test Not Performed. Initial testing necessi tated a repeat, but the re was insufficient sa mple to perform repeat. SAMPLE LEFT FOR REPEAT IS 50 uL. NEED 1000 u L TO RUN REPEAT. This te st was performed using the APTIMA(R) HIV-R NA Qualitative Ass ay (Gen-Probe). ======== ======== Te st performed by:[employer] [address] [place] [address] KYLE (test HIVQL - HIV-1 RNA, code = KYLE) Qualitative TMA (FROZEN)[facility]UP Test Code: 9502044Nxgcaf: plasma Jew [facility] duplex venous upper chlkitklf1471-71-68 04:57:00 Vascular Ultrasound Laboratory Upper Extremity Venous Report [id number] [place] [address] Pat.Name: LIO WATTS.ID: [id number] St.Date: 04/30/2020 Refer.MD: ELISEO ARCE MD Exam Time: 5:04:00 PM Study Type:UE Venous Age: 9 1955,65Y Sex: FEMALE Sonogrphr: IBIS Espinosa RCS Pat. Stat.:Inpatient Room: [facility] WT20 2020 Tape Vol: EDGAR, CPT - 4: 52274 Echo Event ID:[id number] Order ID: [id number] Reason for Study:Arm swelling or pain, DVT [...] veins.*Preliminary result reported to ASHLEY Santos @ 1714 on 04/30/20.PHYSICIAN INTERPRETATION Venous examination of the both upper extremities and neck demonstratedno evidence of deep venous thrombosis. Total superficial vein thrombosis of the right basilic vein. FINDINGS: Signed 04/30/2020 10:57 PMFrancis Cabral MD, RPVIInterface, Radiology Results In - 04/30/2020 10:58 PM CST Vascular Ultrasound Laboratory Upper Extremity Venous Report [id number] [address] Pat.Name: LIO WATTS.ID: [id number] .Date: 04/30/2020 Refer.MD: ELISEO ARCE MD Exam Time: 5:04:00 PM Study Type:UE Venous Age: 10 1955,65Y Sex: FEMALE Sonogrphr: Dwayne Macias, IBIS, SANKET Pat. Stat.:Inpatient Room: [place] [address] 2020 Tape Vol: EDGAR, CPT - 4: 16908 Echo Event ID:[id number] Order ID: [id number] Reason for Study:Arm swelling or pain, DVT [...] veins.*Preliminary result reported to ASHLEY Santos @ 2233 on 04/30/20.PHYSICIAN INTERPRETATION Venous examination of the both upper extremities and neck demonstratedno evidence of deep venous thrombosis. Total superficial vein thrombosis of the right basilic vein. FINDINGS: ------Signed 04/30/2020 10:57 Rajni Cabral MD, [facility] Chest 2 Ew4265-72-20 22:21:01EXAMINATION: XR CHEST 2 VW CLINICAL HISTORY: [...] active disease of the chest.1D2RAD_PS01[facility] Unsuccessful Fsnulat8811-13-61 17:14:34ANicole zhang RN 04/30/2020 11:25 AMMidline Unsuccessful [...] place a PIV g.20 in lower arm .[facility]XR Abdomen 1 Vw Xtprohcf6914-76-15 16:20:14EXAMINATION: XR ABDOMEN 1 VW PORTABLE CLINICAL HISTORY: Abdominal pain post op COMPARISON: No prior IMPRESSION:1.Residual barium within the colon throughout. No small bowel obstruction noted. [facility] [id number] Interface, Radiology Results Incoming - 04/30/2020 10:23 AM CST EXAMINATION: XR ABDOMEN 1 VW PORTABLECLINICAL HISTORY: Abdominalpain post opCOMPARISON: No priorIMPRESSION:1.Residual barium within the colon throughout. No smallbowel obstruction noted.[facility]-[id number] AhffapccKyenzs0554-35-35 20:57:57Carlee Malloy MD 04/28/2020 2:59 PMAirwayPerformed by: Carlee Malloy MDAuthorized by: Carlee Malloy MD Location: ORUrgency: ElectiveDifficult Airway: No Anesthesiologist: Kvng Malloy MDResident/PARTY DEMONSTRATOR/AA: Allan Morocho DOPerformed by: resident/PARTY DEMONSTRATOR/AAPreoxygenated adyc143% O2: Yes C- spine Precautions Maintained Throughout: [...] No Number of Attempts at Approach: 1 [facility]manTransthoracic Echocardiogram Complete, (w Contrast, Strain and 3D if needed)2020-04-28 00:20:00 Echocardiography Report [id number] [place] [address] Pat.Name: LIO WATTS Pat.ID: [id number] .Date: 04/27/2020 Refer.MD: ELISEO ARCE MD Exam Time: 2:21:00 PM Study Type:Routine Echo Height: 64in Weight: 213lb BSA: 2.01 m2 Age: 9 1955,65Y Sex: FEMALE BP: 128/89 HR: 102 bpm Sonogrphr: SANKET Perkins Pat. Stat.:Inpatient Room: [facility] Study Status:Final Echo Event ID:[id number] Order ID: [id number] Reason for Study:Atrial FibrillationHistory / Clinical:Hypertension Procedures: [...] estimate PA systolic pressure. MEASUREMENTS: 2DParasternal [place] Ao An 2.2 cm LVPWd 1 [...] 04/27/2020 6:21 PM CST Echocardiography Report [id number] [address].Name: LIO WATTS Marta.ID: [id number] .Date: 04/27/2020 Refer.MD: ELISEO ARCE MD Exam Time: 2:21:00 PM Study Type:Routine Echo Height: 64in Weight: 213lb BSA: 2.01 m2 Age: 9 1955,65Y Sex: FEMALE BP: 128/89 HR: 102 bpm Sonogrphr: SANKET Perkins Pat. Stat.:Inpatient Room: [facility] Study Status:Final Echo Event ID:[id number] Order ID: [id number] Reason for Study:Atrial FibrillationHistory / Clinical:Hypertension Procedures: [...] PA systolic pressure.- MEASUREMENTS: ---- 2DParasternal [place] Ao An 2.2 cm LVPWd 1 [...] LVOT CI 3.1 l/m/m2 Signed 04/27/2020 06:20 PMMoaiken [facility] MarioHouston [facility] Esophagram Double Rhudpist3229-89-46 18:07:12EXAMINATION: [place] ESOPHAGRAM DOUBLE CONTRAST CLINICAL HISTORY: [...] spontaneous gastroesophageal reflux. [id number]_[id number] Interface, Radiology Results [facility] - 04/25/2020 12:10 PM CST EXAMINATION: [place] ESOPHAGRAM DOUBLE CONTRASTCLINICALHISTORY: R13.10 Dysphagia unspecified, K44.9 Diaphragmatic hernia without obstruction or gangrene,Dysphagia unexplained, dysphagia hiatal herniaCOMPARISON: Limited comparison with chest CT from 2019TECHNIQUE: Esophagram was performed with effervescent granules and barium.FLUOROSCOPIC TIME: 1.5 minutes.NUMBER OF IMAGES: 9 fluoroscopic images.IMPRESSION:No strictures. Normal esophageal mucosa.Nonspecific esophageal dysmotility, with mildly delayed esophageal emptying and scatterednonpropulsive tertiary contraction waves.There is a moderately sized type III hiatal hernia. There was mild spontaneous gastroesophageal reflux.1OP17RAD_PS01[facility] HospitalCT [facility] Wo Contrast Abdomen Wo Contrast Pelvis Wo Dpuckkch6837-42-49 15:23:55EXAMINATION: CT CHEST WO CONTRAST ABDOMEN WO [...] chronic and incidental findings as detailed above. [facility]-[id number] Dictated and approved by radiology resi dent/fellow: Jenna Valenzuela M.D. I, Medhat Flowers Jr., M.D., personally reviewed the images and resident's/fellow's findings and agree with the final report.[facility], Radiology Results Incoming - 04/21/2020 9:27 AM [...] aorta.4.Additional chronic and incidental findings as detailed above.[facility]-[id number] and approved by director of residential services/fellow: Jenna Valenzuela M.D.I, Medhat Flowers Jr., M.D., personally reviewed the images and resident's/fellow's findings and agree with the final report. [facility], GC, TV,PCR, IN MVIVW2660-98-80 15:38:00 Test Item Value Reference Range Interpretation Comments FT (test code = CHTR) Not detected (qualifier Not Detected N value) FT (test code = Not detected (qualifier Not Detected N NGONO) value) FT (test code = TRVG) Not detected (qualifier Not Detected N value) URINALYSIS WITH [id number] 10:57:00 Test Item Value Reference Range Interpretation Comments Color (test code = UCOLR) Dk. Yellow Clarity (test code = UCLAR) Hazy Glucose (test code = UGLUC) NEGATIVE NEGATIVE N Bilirubin (test code = UBILI) NEGATIVE NEGATIVE N Ketones (test code = UKET) NEGATIVE NEGATIVE N Specific [place] (test code = 1.025 1.005-1.030 A USPGR) [...]
--- NOTE | 2021-04-28 19:31 | ER ---
Nurse's Notes [facility] Name: Marjan Fleming Age: 66 yrs Sex: Female : 1955 Arrival Date: 04/28/2021 Time: 16:56 Bed Waiting Private MD: Diagnosis: Presentation: 04/28 17:14 Chief complaint: Patient states: I have been having to use oxygen at home today due to ld1 SOB. This afternoon I noticed blood in my stool. Coronavirus screen: At this time, the client does not indicate any symptoms associated with coronavirus-19. Ebola Screen: No symptoms or risks identified at this time. Initial Sepsis Screen: Does the patient meet any 2 criteria? No. Patient's initial sepsis screen is negative. Does the patient have a suspected source of infection? No. Patient's initial sepsis screen is negative. Risk Assessment: Do you want to hurt yourself or someone else? Patient reports no desire to harm self or others. Onset of symptoms was April 28, 2021. 17:14 Method Of Arrival: Wheelchair ld1 17:14 Acuity: BLAYNE 3 ld1 Triage Assessment: 17:15 General: Appears in no apparent distress. comfortable, Behavior is calm, cooperative, ld1 appropriate for age. Pain: Denies pain. EENT: No signs and/or symptoms were reported regarding the EENT system. Neuro: Level of Consciousness is awake, alert, obeys commands, Oriented to person, place, time, situation, Appropriate for age. Cardiovascular: Capillary refill < 3 seconds Patient's skin is warm and dry. Respiratory: Reports shortness of breath Airway is patent Respiratory effort is even, unlabored, Respiratory pattern is regular, symmetrical, Onset: The symptoms/episode began/occurred gradually, the patient has mild shortness of breath. GI: Abdomen is round non-distended. : No signs and/or symptoms were reported regarding the genitourinary system. Derm: No signs and/or symptoms reported regarding the dermatologic system. Musculoskeletal: No signs and/or symptoms reported regarding the musculoskeletal system. Historical: - Allergies: 17:15 Bactrim DS; ld1 17:15 butorphanol tartrate; ld1 17:15 Fentanyl; ld1 17:15 Reglan; ld1 17:15 Stadol; ld1 17:15 sulfamethoxazole (bulk); ld1 17:15 TRIMETHOPRIM; ld1 - PMHx: 17:15 Anxiety; Atrial Fib; Bipolar disorder; Chronic pain; COPD; esophageal varices; ld1 Hepatitis; HIV; Hypertension; Migraines; Panic Attacks; - PSHx: 17:15 Appendectomy; Bilateral shoulder repair; Cholecystectomy; hernia repair; ld1 - Immunization history:: Adult Immunizations up to date, Client reports receiving the 2nd dose of the Covid vaccine. - Social history:: Smoking status: Patient/guardian denies using tobacco, the patient reports quitting approximately 1 years ago, Patient/guardian denies using alcohol. Vital Signs: 17:14 BP 147 / 74; Pulse 62; Resp 18; Temp 98.2(O); Pulse Ox 96% on R/A; Weight 111.13 kg; ld1 Height 5 ft. 4 in. (162.56 cm); Pain 0/10; 17:14 Body Mass Index 42.05 (111.13 kg, 162.56 cm) ld1 ED Course: 16:56 Patient arrived in ED. ds1 17:15 Triage completed. ld1 17:15 Arm band placed on right wrist. ld1 19:30 Patient's name was called from ER lobby. No response. Unable to locate patient. Will iw disposition as left without being seen by a provider. Administered Medications: No medications were administered Outcome: 19:31 Patient left the ED. iw Signatures: Lainey Monson ds1 Jacquelin Meier RN RN iw Wanda Rust RN RN ld1
[2021-04-28 19:42] VITALS: BP 147/74; TEMP 98.2; O2SAT 96
== END 2021-04-28 19:31 | disposition left against medical advice (07) ==
LOC: ER 16:51
DX: Z53.21 Procedure and treatment not carried out due to patient leaving prior to being seen by health care provider (principal)
CPT/HCPCS: 99281

== ENCOUNTER 2021-05-04 16:12 | Emergency (ER) | payer OTHER ==
--- OUTSIDE RECORDS SUMMARY | 2021-05-04 16:21 | XMS REPORT | Continuity of Care Document ---
:1955 Author Organization [facility] t Address [address] [place] [address] [address] [place] [address] Care Team Providers Name Role Phone MURPHY Primary Care Physician Unavailable HEMATPOUR Attending Clinician Unavailable ZEUS REEVES Attending Clinician Unavailable Ronald DHILLON Attending Clinician Prabhu SANCHEZ Attending Clinician Unavailable Luisana Maharaj NP Attending Clinician Yazmin JENKINS Attending Clinician [facility] Attending Clinician Unavailable Marika Bal Attending Clinician Clark SANCHEZ Attending Clinician Unavailable Diana SANCHEZ Attending Clinician Unavailable Andrez RAMIREZ Attending Clinician Unavailable Curt Mitchell MD Attending Clinician Remigio JENKINS V. Attending Clinician HEMATPOUR Attending Clinician Unavailable Meli SANCHEZ Attending Clinician Unavailable Tori JENKINS, [...] Number Effective Date Expiration Date S gabino [facility] [id number] 2012 [employer] 00:00:00 [employer] [id number] 2019 BEHAVIORAL 00:00:00 SOLUTIONS MEDICAID OF [place] [id number] 2020 00:00:00 Problems Condition Condition Condition Status Onset Resolution Last Treating Co mments Source Name Details Category Date Date Treatment Clinician Date Gastropare Gastropare Disease Active Overview : Methodi sis sis 4-[address] 00:00: [facility] this [facility] 00 note l might be different from the original. Added automatic ally from request for surgery [id number] Dysphagia Dysphagia Disease Active Overview: Methodi 4-[address] 00:00: g of this [facility]osp[facility] 00 note l might be different from the original. Added automatic ally from request for surgery [id number] CCL / EPS Diagnosis Active 2020-10-15 Memoria PVI 3-30 17:07:00 l ABLATION CCL / 00:00: Marty W/ CARTO / EPS PVI 00 GA / T ABLATION W/ CARTO / GA / T Active 08/19/2020 [facility] Food Food Disease Active 2019-05 Methodi intoleranc intoleranc 2-04 st e in adult e in adult 00:00: Ho spita 00 l S/p S/p Disease Active Methodi reverse reverse 5-30 st 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:00: Hospita shoulder shoulder 00 l arthroplas arthroplas ty ty Unstable Unstable Disease Active Metho di reverse reverse 3 st 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:00: Hospita shoulder shoulder [...] reverse 02-17 ity of 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:00: [place] shoulder shoulder 00 Medica l arthroplas arthroplas Br anch ty ty Posttrauma Posttrauma Disease Active U nivers tic stress tic stress 09-27 it y of disorder disorder 00:00: [place] [facility] Human Human Disease Active Univers [...] matt NOL INGREDI 11-25 ity of 00:00: [place] [facility] Butorpha Drug Active Unknown - Unive rs nol Allergy See comments 11-25 ity of 00:00: [place] [facility] Sulfamet Propensi Active [facility] hoxazole ty to 6- Health -Trimeth adverse 00:00: oprim reaction 00 [...] to drug FENTANYL DRUG Active High Hives 2017-0 Univers INGREDI 2-08 ity of 00:00: [place] 00 [facility] TRIMETHO DRUG Active Hives 2018- Univers PRIM INGREDI 2-08 ity of 00:00: [place] 00 [facility] Fentanyl Drug Active Other - See Unknown Un matt Allergy comments 06-30 reaction ity o f 00:00: [place] 00 [facility] Trimetho Propensi Active Hives 2017- Univer s prim ty to 208 ity of adverse 00:00: [place] reaction 00 [...] Uni vers ramide ty to See comments 1 ity of adverse 00:00: [place] reaction 00 [...] Date Stop Date Source Natural father Diabetes [facility] Natural father Other - see comments [facility] Natural [facility] [place] [facility] Hy[facility] father Kid[facility] Natural mother Cancer [facility] Social History Social Habit Start Date Stop Date Quantity Comments Source History SDOH [facility] Alcohol Std Drinks History SDOH [facility] Alcohol Binge Exposure to Not sure [facility] SARS-CoV-2 (event) History of tobacco Smoker [facility] use Hospital Cigarettes smoked 2020-12-08 2020-12-[address] current (pack per 00:00:00 00:00:00 Hospita l ) - Reported Cigarette 2020-12-08 2020-12-08 [facility] pack-years 00:00:00 00:00:00 Hospital Tobacco use and 2020-10-31 2020-10-31 Never used [facility] exposure 00:00:00 00:00:00 Alcohol intake 2020-10-31 2020-10-31 Ex-drinker [facility] 00:00:00 00:00:00 (finding) History SDOH 2020-10-31 2020-10-31 1 [facility] Alcohol Frequency 00:00:00 00:00:00 Alcohol Comment 2016-09-23 2016-09-23 rare [facility] 00:00:00 00:00:00 Hospital Tobacco Comment 2015-02-14 2015-02-14 Smokes approx 1-2 Un iversity of 00:00:00 00:00:00 cigarettes per [place] [facility] when she Branch smokes Sex Ass[birth year] At [birth year] [facility] 00:00:00 00:00:00 Smoking Status Start Date Stop Date Source Former smoker 2020-10-31 00:00:00 2020-10-31 [facility]:00 [facility] smoked [facility] Medications Ordered Filled Start Stop Current Ordering Indication Dosage Frequency Signature Comments Components Source Medication Medication Date Date Medication? Clinician (SIG) Name Name LORazepam 2 2020-05 Yes [id number] 2mg Take 1 Univers mg tablet 2-06 tablet by ity o f 00:00: mouth 2 [place] 00 (two) Medical times Branch daily as needed (anxiety). LORazepam 2 2020-05- No [id number] 2mg Take 1 Univers mg tablet 1- 12-06 tablet by ity of 00:00: 00:00 mouth 2 [place] 00 :00 (two) Medical times Branch daily as needed (anxiety). raltegravir Yes [id number] 400mg Take 1 Univers (ISENTRESS) 9-24 tablet by ity of 400 mg 00:00: mouth 2 [place] tablet 00 (two) Medical times Branch daily. buPROPion Yes [id number] 150mg Take 1 U nivers XL 9-08 tablet by ity of (WELLBUTRIN 00:00: mouth [place] XL) 150 mg 00 daily. Medical 24 hr Branch tablet SERTraline Yes [id number] 200mg Take 2 Univers 100 mg 9-08 tablets by ity of tablet 00:00: mouth [place] 00 daily. Medical Branch busPIRone Yes [id number] 30mg Take 1 Un matt 30 mg 8-30 tablet by ity of tablet 00:00: mouth 2 [place] 00 (two) Medical times Branch daily. metoprolol 2021- No [id number] Take 1 UT tartrate 12-15- tablet Health (Lopressor) 00:00: 05:59 (100 mg 100 MG 00 :00 total) by tablet mouth 2 (two) times a day AND 0.5 tablets (50 mg total) every night. raltegravir 2020-0 Yes 400mg Q.5D Take 400 U T (Isentress) 7-23 mg by Health 400 MG 13:03: mouth 2 tablet 05 (two) times a day. raltegravir 2020-0 Yes 400mg Q.5D Take 400 [...] area in groin) hydrALAZINE 2020-0 Yes 50mg Q.[id number] Take 50 mg Methodi (APRESOLINE 7-19 [id number] mouth [address] ) 50 MG 15:51: 3D (three) Hospita tablet 25 times a l day. busPIRone 2020-0 Yes 20mg QD Take 20 mg Me thodi (BUSPAR) 10 7-[address] MG tablet 15:51: nightly. Hosp soren 25 l acetaminoph 2021-0 Yes 1000mg Q.5D Take 1,000 Methodi en [...] Hospita tablet 25 daily. l nystatin-tr Yes [id number] Apply to [facility] iamcinolone 11-25 area(s) 3 ity of cream 00:00: (three) [place] 00 times Medical daily. Branch emtricitabi Yes [id number] Take one [facility] ne-tenofovi 11-25 po daily ity of r alafen 00:00: [place] (DESCOVY) 00 Medical tablet Branch budesonide- 2020- No 1{puff} QD Inhale 1 Methodi formoteroL 6-25 06-[address] (SYMBICORT) 19:37: 00:00 morning. H ospita 160-4.5 02 :00 l mcg/actuati on inhaler hydrALAZINE 2020- No [id number] 50mg Q.[id number] Take 1 UT (Apresoline 6-11 - [id number] tablet (50 Health ) 50 MG 00:00: 04:59 3D mg total) tablet 00 :00 by mouth 3 (three) times a day. hydrALAZINE 2020- No [id number] 50mg Q.55762935 Take 1 UT (Apresoline 10-31 [id number] tablet (50 Health ) 50 MG 00:00: 04:59 3D mg total) tablet 00 :00 by mouth 3 (three) times a day. hydrALAZINE 1- No [id number] 50mg Q.[id number] Take 1 UT (Apresoline 10-31 [id number] tablet (50 Health ) 50 MG 00:00: 04:59 3D mg total) tablet 00 :00 by mouth 3 (three) times a day. hydrALAZINE 2020- No [id number] 50mg Q.[id number] Take 1 UT (Apresoline 10-31 [id number] tablet (50 Health ) 50 MG 00:00: 04:59 3D mg total) tablet 00 :00 by mouth 3 (three) times a day. Breztri 0 Yes [facility] Aerosphere 609 [facility] 160-9-4.8 00:00: MCG/ACT 00 aerosol Breztri 2020-0 Yes [facility] 6 Health 160-9-4.8 00:00: MCG/ACT 00 aerosol Breztri 2020-0 Yes [facility] 6-09 Health 160-9-4.8 00:00: MCG/ACT 00 aerosol Breztri 2020-0 Yes [facility] 609 [facility] 160-9-4.8 00:00: MCG/ACT 00 aerosol albuterol [...] Health 200 MG 00:00: tablet 00 amiodarone 2021-0 Yes UT (Pacerone) 5-31 Health 200 MG 00:00: tablet 00 amiodarone 2020-0 2020- No UT (Pacerone) 5 07-26 Health 200 MG 00:00: 00:00 tablet 00 :00 sertraline 0 Yes 200mg 200 mg. UT [...] 40 MG 5-30 Health tablet 00:00: 00 mupirocin 2020-0 Yes UT (Bactroban) 528 Health 2 % 00:00: ointment 00 mupirocin 0 Yes UT (Bactroban) 528 Health 2 % 00:00: ointment 00 mupirocin 2020-0 Yes UT (Bactroban) 528 Health 2 % 00:00: ointment 00 mupirocin 2020-0 Yes UT (Bactroban) 528 Health 2 % 00:00: ointment 00 nystatin 2020- No [id number] Q.25D Take 5 mL Methodi (MYCOSTATIN 10-06 (500,000 st ) 100,000 00:00: 04:59 Units Hospit a unit/mL 00 :00 total) by l suspension mouth 4 (four) times a day for 14 days. Swish in mouth sucralfate 2020- No 1g Q.25D Take 10 mL Methodi (Carafate) 10-06 ([address] 100 mg/mL 00:00: 04:59 [...] tablet 5-05 Health 00:00: 00 Eliquis 5 0 Yes UT MG tablet 5-05 Health 00:00: [...] e 4-10 Tablet l 14:00: should not [place] 00 be chewed or crushed. (Same as: [...] ia 4-10 (Same as: l 14:00: Zoloft) [place] 00 pantoprazol No Notes: Caesar lisa e 4-10 Tablet l 14:00: should not [place] 00 be chewed or crushed. (Same as: Protonix) Amiodarone No Notes: Memor ia 4-10 (Same as: l 14:00: Cordarone) [place] 00 Amlodipine No Notes: Memor ia 4-10 (Same as: l 14:00: Norvasc) [place] emtricitabi No Notes: Caesar lisa ne 200 [...] ia 4-10 (Same as: l 14:00: Cordarone) [place] 00 Amlodipine No Notes: Memor ia 4-10 (Same as: l 14:00: Norvasc) [place] 00 emtricitabi No Notes: Caesar lisa ne [...] ia 4-10 (Same as: l 14:00: Norvasc) [place] 00 emtricitabi No Notes: Caesar lisa ne 200 MG / 4-10 (Same as: l tenofovir 14:00: Descovy) Herm ariel alafenamide 00 Non-formul 25 MG Oral nancy Tablet [Descovy] Sertraline No Notes: Memor ia 4-10 (Same as: l 14:00: Zoloft) [place] 00 pantoprazol No Notes: Caesar lisa e 4-10 Tablet l 14:00: should not [place] 00 be chewed or crushed. (Same as: [...] M emoria 4-10 interfere l 02:00: w/enteral [place] 00 feeds - Take 1 hr before [...] M emoria 4-10 interfere l 02:00: w/enteral [place] 00 feeds - Take 1 hr before [...] 0.9% 4-10 (Same as: l 02:00: BD [place] Posiflush) Eliquis No Notes: Memoria 4-10 Same as: l 02:00: Eliquis [place] 00 Hydralazine No Notes: Caesar lisa Hydrochlori 4-10 (Same as: l de 50 MG 02:00: Apresoline Her mitchell Oral Tablet 00 ) May interfere w/enteral feedings Take With Food Sucralfate No Notes: May M emoria 4-10 interfere l 02:00: w/enteral [place] 00 feeds - Take 1 hr before [...] M emoria 4-10 interfere l 02:00: w/enteral [place] 00 feeds - Take 1 hr before or 2 hr after antacids, dairy pdt, meals & minerals - On empty stomach. For patients unable to swallow tablet, dissolve in 10mL - 30mL of water or juice and stir before giving. (Same As: Carafate) Saline No Notes: Memoria Flush 0.9% 4-10 (Same as: l 02:00: BD [place] 00 Posiflush) Eliquis No Notes: Memoria 4-10 Same as: l 02:00: Eliquis [place] Hydralazine No Notes: Caesar lisa Hydrochlori 4-10 [...] 0.9% 4-10 (Same as: l 02:00: BD [place] 00 Posiflush) Eliquis No Notes: Memoria 4-10 Same as: l 02:00: Eliquis [place] 00 Hydralazine No Notes: Caesar lisa Hydrochlori 4-10 (Same as: l de 50 MG 02:00: Apresoline Her mitchell Oral Tablet 00 ) May interfere w/enteral feedings Take With Food Sucralfate No Notes: May M emoria 4-10 interfere l 02:00: w/enteral [place] 00 feeds - Take 1 hr before [...] not exceed l #3 00:12: 4gm/day of [place] 00 acetaminop hen. (Same as: Tylenol with Codeine # 3) acetaminoph No Notes: Do M emoria en-codeine 4-10 not exceed l #3 00:12: 4gm/day of [place] acetaminop hen. (Same as: Tylenol with Codeine [...] 0 No 40 mg, 1 Mem oria - tab, l 22:00: Route: PO, [place] Drug form: TAB, BID, Dosing Weight 97.273, kg, Start date: 08/29/20 17:00:00 CDT, Duration: 30 day, Stop date: 09/28/20 9:00:00 CDT metoprolol 2020-0 No 100 mg, 1 Me moria tartrate - tab, l 22:00: Route: PO, [place] 00 Drug form: TAB, BID, Dosing Weight [...] 08-29 (Same As: l 22:00: BuSpar) Raltegravir 1-0 No 400 mg, 1 M emoria 400 MG Oral 4-09 tab, l Tablet 22:00: Route: PO, Skylar nn [ISENTRESS] 00 Drug form: TAB, BID, Dosing Weight 97.273, kg, Start date: 08/29/20 17:00:00 CDT, Duration: 30 day, Stop date: 09/28/20 9:00:00 CDT, 0 Lisinopril 1-0 No 40 mg, 1 Mem [...] oria 4-09 tab, l 22:00: Route: PO, [place] 00 Drug form: TAB, BID, Dosing Weight [...] oria 4-09 tab, l 22:00: Route: PO, [place] 00 Drug form: TAB, BID, Dosing Weight 97.273, kg, Start date: 08/29/20 17:00:00 CDT, Duration: 30 day, Stop date: 09/28/20 9:00:00 CDT metoprolol 1-0 No 100 mg, 1 Me moria tartrate 4- tab, l 22:00: Route: PO, [place] Drug form: TAB, BID, Dosing Weight 97.273, [...] oria -09 tab, l 22:00: Route: PO, [place] 00 Drug form: TAB, BID, Dosing Weight [...] Notes: Memoria 4-09 (Same l 17:07: as:MORPhin [place] 00 e Sulfate) Morphine No Notes: Memoria 4-09 (Same l 17:07: as:MORPhin [place] 00 e Sulfate) Morphine No Notes: Memoria 4-09 (Same l 17:07: as:MORPhin [place] 00 e Sulfate) Morphine No Notes: Memoria 4-09 (Same l 17:07: as:MORPhin [place] 00 e Sulfate) Morphine No Notes: Memoria 4-09 (Same l 17:07: as:MORPhin [place] 00 e Sulfate) Morphine No Notes: Memoria 4-09 (Same l 17:07: as:MORPhin [place] 00 e Sulfate) buPROPion No 150 mg, [...] tab, PO, l oral 15:27: Daily, # [place] enteric 00 30 tab, 0 coated Refill(s), tablet Pharmacy: [facility] 149, 162.56, cm, 08/29/20 5:30:00 CDT, Height, 97.273, kg, 08/29/20 5:30:00 CDT, Weight pantoprazol 2021-0 Yes 40 mg = 1 M emoria e 40 mg 4-09 tab, PO, l oral 15:27: Daily, # [place] enteric 00 30 tab, 0 coated Refill(s), tablet [facility], 162.56, cm, 08/29/20 5:30:00 CDT, Height, 97.273, kg, 08/29/20 5:30:00 CDT, Weight pantoprazol 2021-0 Yes 40 mg = 1 M emoria e 40 mg 4-09 tab, PO, l oral 15:27: Daily, # [place] enteric 00 30 tab, 0 coated Refill(s), tablet [facility], 162.56, cm, 08/29/20 5:30:00 CDT, Height, 97.273, kg, 08/29/20 5:30:00 CDT, Weight pantoprazol 2021-0 Yes 40 mg = 1 M emoria e 40 mg 4-09 tab, PO, l oral 15:27: Daily, # [place] enteric 00 30 tab, 0 coated Refill(s), tablet Pharmacy: [facility] 149, 162.56, cm, 08/29/20 5:30:00 CDT, Height, 97.273, kg, 08/29/20 5:30:00 CDT, Weight pantoprazol 2021-0 Yes 40 mg = 1 M emoria e 40 mg 4-09 tab, PO, l oral 15:27: Daily, # [place] enteric 00 30 tab, 0 coated Refill(s), tablet Pharmacy: [facility] 149, 162.56, cm, 08/29/20 5:30:00 CDT, Height, 97.273, kg, 08/29/20 5:30:00 CDT, Weight pantoprazol 2021-0 Yes 40 mg = 1 M emoria e 40 mg 4-09 tab, PO, l oral 15:27: Daily, # [place] enteric 00 30 tab, 0 coated Refill(s), tablet [facility], 162.56, cm, 08/29/20 5:30:00 CDT, Height, 97.273, kg, 08/29/20 5:30:00 CDT, Weight pantoprazol 2020-0 Yes 40 mg = 1 M emoria e 40 mg 4-09 tab, PO, l oral 15:27: Daily, # [place] enteric 00 30 tab, 0 coated Refill(s), tablet Pharmacy: [facility] 149, 162.56, cm, 08/29/20 5:30:00 CDT, Height, 97.273, kg, 08/29/20 5:30:00 CDT, Weight pantoprazol 2020-0 No 40 mg = 1 M emoria e 40 mg 4-09 tab, PO, l oral 15:26: Daily, # [place] enteric 00 30 tab, 0 coated Refill(s) tablet sucralfate 2020-0 Yes 1 gm = 1 Mem oria 1 g oral 4-09 tab, PO, l tablet 15:26: Q12H, # 28 Skylar nn 00 tab, 0 Refill(s), Pharmacy: [facility] 149, 162.56, cm, 08/29/20 5:30:00 CDT, [...] [place] nn 00 tab, 0 Refill(s), Pharmacy: [facility] 149, 162.56, cm, 08/29/20 5:30:00 CDT, [...] [place]yl[place] nn 00 tab, 0 Refill(s), Pharmacy: [facility] 149, 162.56, cm, 08/29/20 5:30:00 CDT, Height, 97.273, kg, 08/29/20 5:30:00 CDT, Weight pantoprazol 2020-0 No 40 mg = 1 M emoria e 40 mg 4-09 tab, PO, l oral 15:26: Daily, # [place] enteric 00 30 tab, 0 coated Refill(s) tablet sucralfate 2020-0 Yes 1 gm = 1 Mem oria 1 g oral 4-09 tab, PO, l tablet 15:26: Q12H, # 28 [place] nn 00 tab, 0 Refill(s), Pharmacy: [facility] 149, 162.56, cm, 08/29/20 5:30:00 CDT, [...] Skylar nn 00 tab, 0 Refill(s), Pharmacy: [place] [id number], 162.56, cm, 08/29/20 5:30:00 CDT, Height, 97.273, kg, 08/29/20 5:30:00 CDT, Weight pantoprazol 2020-0 No 40 mg = 1 M emoria e 40 mg 4-09 tab, PO, l oral 15:26: Daily, # [place] enteric 00 30 tab, 0 coated Refill(s) tablet sucralfate 1-0 Yes 1 gm = 1 Mem oria 1 g oral 4-09 tab, PO, l tablet 15:26: Q12H, # 28 [place] nn 00 tab, 0 Refill(s), Pharmacy: [facility] 149, 162.56, cm, 08/29/20 5:30:00 CDT, Height, 97.273, kg, 08/29/20 5:30:00 CDT, Weight pantoprazol No 40 mg = 1 M emoria e 40 mg 4-09 tab, PO, l oral 15:26: Daily, # [place] enteric 00 30 tab, 0 coated Refill(s) tablet sucralfate Yes 1 gm = 1 Mem oria 1 g oral 4-09 tab, PO, l tablet 15:26: Q12H, # 28 [place] nn 00 tab, 0 Refill(s), Pharmacy: [facility] 149, 162.56, cm, 08/29/20 5:30:00 CDT, Height, 97.273, kg, 08/29/20 5:30:00 CDT, Weight Lorazepam No Notes: Memori a 4-09 (Same as: l 15:25: Ativan) Saline No Notes: Memoria Flush 0.9% 4-09 (Same as: l 15:25: BD [place] 00 Posiflush) Lorazepam No Notes: Memori a 4-09 (Same as: l 15:25: Ativan) Saline No Notes: Memoria Flush 0.9% 4-09 (Same as: l 15:25: BD [place] 00 Posiflush) Lorazepam No Notes: Memori a 4-09 (Same as: l 15:25: Ativan) Saline No Notes: Memoria Flush 0.9% 4-09 (Same as: l 15:25: BD [place] 00 Posiflush) Lorazepam No Notes: Memori a [...] BD Posiflush) Lorazepam No Notes: Memori a - (Same as: l 15:25: Ativan) Saline No Notes: Memoria Flush 0.9% 08-29 (Same as: l 15:25: BD Posiflush) Isuprel HCl No Route: IV, Memoria (ANES) [...] Drug form: l mg + 15:00: INJ, [place] 00 Dosing Weight 97.3, kg, Start date: [...] 08-29 Drug form: l 14:49: INJ, ONCE, [place] 00 Stop date: 08/29/20 9:49:00 CDT propofol 2021-0 [...] 08-29 Drug form: l 14:18: INJ, ONCE, [place] 00 Stop date: 08/29/20 9:18:00 CDT heparin 2021-0 No Route: IV, Caesar lisa (ANES) 08-29 Drug form: l 14:18: INJ, ONCE, [place] 00 Stop date: 08/29/20 9:18:00 CDT heparin 2021-0 No Route: IV, Caesar lisa (ANES) 08-29 Drug form: l 14:18: INJ, ONCE, [place] Stop date: 08/29/20 9:18:00 CDT heparin 2020-0 No Route: IV, Caesar lisa (ANES) 08-29 Drug form: l 14:18: INJ, ONCE, [place] 00 Stop date: 08/29/20 9:18:00 CDT heparin [...] 08-29 Drug form: l 14:18: INJ, ONCE, [place] 00 Stop date: 08/29/20 9:18:00 CDT Labetalol 2020-0 No 10 mg, Memori a 08-29 Route: l 14:01: IVP, [place] 00 Q5Min, Dosing Weight 97.273, kg, PRN [...] lisa 08-29 Route: l 14:01: IVP, PRN, [place] 00 Dosing Weight 97.273, kg, PRN Benzodiaze pine Reversal, Initial dose, Start date: 08/29/20 9:01:00 CDT, Duration: 30 day, Stop date: 09/28/20 9:00:00 CDT Naloxone 2020-0 No 0.4 mg, Memori a 08-29 Route: l 14:01: IVP, [place] 00 Q2MIN, Dosing Weight 97.273, kg, PRN Narcotic Reversal, Start date: 08/29/20 9:01:00 CDT, Duration: 8 doses or times, Stop date: Limited # of times Ondansetron 2020-0 No 4 mg, Memor ia 08-29 Route: l 14:01: IVP, ONCE, [place] 00 Dosing Weight 97.273, kg, PRN Nausea & Vomiting, Start date: 08/29/20 9:01:00 CDT Labetalol 2020-0 No 10 mg, Memori a 08-29 Route: l 14:01: IVP, [place] 00 Q5Min, Dosing Weight 97.273, kg, PRN [...] oria ne 08-29 Route: l 14:01: IVP, [place] 00 Q5Min, Dosing Weight 97.273, kg, PRN [...] Memori a 08-29 Route: l 14:01: IVP, [place] 00 Q2MIN, Dosing Weight 97.273, kg, PRN [...] Memori a 08-29 Route: l 14:01: IVP, [place] 00 Q5Min, Dosing Weight 97.273, kg, PRN Elevated BP, Start date: 08/29/20 9:01:00 CDT, Duration: 5 doses or times, Stop date: Limited # of times Acetaminoph 1-0 No 1,000 mg, M emoria en 08-29 Route: PO, l 14:01: Drug form: [place] 00 TAB, ONCE, Dosing Weight 97.273, kg, [...] lisa 08-29 Route: l 14:01: IVP, PRN, [place] 00 Dosing Weight 97.273, kg, PRN Benzodiaze [...] ia 08-29 Route: l 14:01: IVP, ONCE, [place] 00 Dosing Weight 97.273, kg, PRN Nausea [...] 08-29 Route: PO, l 14:01: Drug form: [place] 00 TAB, ONCE, Dosing Weight 97.273, kg, [...] oria ne 08-29 Route: l 14:01: IVP, [place] 00 Q5Min, Dosing Weight 97.273, kg, PRN Pain Score 7-10, Start date: 08/29/20 9:01:00 CDT, Duration: 4 doses or times, Stop date: Limited # of times Labetalol 1-0 No 10 mg, Memori a 08-29 Route: l 14:01: IVP, [place] 00 Q5Min, Dosing Weight 97.273, kg, PRN Elevated BP, Start date: 08/29/20 9:01:00 CDT, Duration: 5 doses or times, Stop date: Limited # of times Acetaminoph 1-0 No 1,000 mg, M emoria en 08-29 Route: PO, l 14:01: Drug form: [place] 00 TAB, ONCE, Dosing Weight 97.273, kg, [...] ia 08-29 Route: l 14:01: IVP, ONCE, [place] 00 Dosing Weight 97.273, kg, PRN Nausea [...] 08-29 Route: PO, l 14:01: Drug form: [place] 00 TAB, ONCE, Dosing Weight 97.273, kg, [...] Memori a 08-29 Route: l 14:01: IVP, [place] 00 Q2MIN, Dosing Weight 97.273, kg, PRN Narcotic Reversal, Start date: 08/29/20 9:01:00 CDT, Duration: 8 doses or times, Stop date: Limited # of times Ondansetron 2020-0 No 4 mg, Memor ia 08-29 Route: l 14:01: IVP, ONCE, [place] 00 Dosing Weight 97.273, kg, PRN Nausea & Vomiting, Start date: 08/29/20 9:01:00 CDT Labetalol 2020-0 No 10 mg, Memori a 08-29 Route: l 14:01: IVP, [place] 00 Q5Min, Dosing Weight 97.273, kg, PRN Elevated BP, Start date: 08/29/20 9:01:00 CDT, Duration: 5 doses or times, Stop date: Limited # of times Acetaminoph 2020-0 No 1,000 mg, M emoria en 08-29 Route: PO, l 14:01: Drug form: [place] 00 TAB, ONCE, Dosing Weight 97.273, kg, [...] lisa 08-29 Route: l 14:01: IVP, PRN, [place] 00 Dosing Weight 97.273, kg, PRN Benzodiaze pine Reversal, Initial dose, Start date: 08/29/20 9:01:00 CDT, Duration: 30 day, Stop date: 09/28/20 9:00:00 CDT Naloxone 2021-0 No 0.4 mg, Memori a 08-29 Route: l 14:01: IVP, [place] 00 Q2MIN, Dosing Weight 97.273, kg, PRN [...] Drug form: l 10 13:15: INJ, Start [place] 00 date: 08/29/20 8:15:00 CDT, Stop date: 08/29/20 9:15:00 CDT norepinephr 2021-0 No Route: IV, Memoria ine (ANES) 08-29 Drug form: l 10 13:15: INJ, Start [place] microgram 00 date: 08/29/20 8:15:00 CDT, Stop date: 08/29/20 9:15:00 CDT norepinephr 202-0 No Route: IV, Memoria ine (ANES) 08-29 Drug form: l 10 13:15: INJ, Start [place] microgram date: 08/29/20 8:15:00 CDT, Stop date: 08/29/20 9:15:00 CDT norepinephr 2020-0 No Route: IV, Memoria ine (ANES) 08-29 Drug form: l 10 13:15: INJ, Start [place] microgram date: 08/29/20 8:15:00 CDT, Stop date: 08/29/20 9:15:00 CDT norepinephr 2020-0 No Route: IV, Memoria ine (ANES) 08-29 Drug form: l 10 13:15: INJ, Start [place] microgram 00 date: 08/29/20 8:15:00 CDT, Stop [...] 4-09 Total l 0.9% IV 12:30: Volume: [place] (ANES) 1000 00 1,000, mL Start date: [...] 4-09 Total l 0.9% IV 12:30: Volume: [place] (ANES) 1000 00 1,000, mL Start date: [...] PO, l Hydrochlori 11:42: Q24H, # 30 [place] de 150 MG 00 tab, 0 Extended Refill(s) Release Tablet 24 HR Yes 150 mg = 1 Memori a Bupropion 4-09 tab, PO, l Hydrochlori 11:42: Q24H, # 30 [place] de 150 MG 00 tab, 0 Extended Refill(s) Release Tablet 24 HR 2020-0 Yes 150 mg = 1 Memori a Bupropion - tab, PO, l Hydrochlori 11:42: Q24H, # 30 [place] de 150 MG 00 tab, 0 Extended [...] 08-29 Q12H, tab, l Tablet 11:41: 0 [place] [Eliquis] 00 Refill(s), For Atrial Fibrilatio n apixaban 5 2020-0 Yes 5 mg, PO, Me moria MG Oral - Q12H, tab, l Tablet 11:41: 0 [place] [Eliquis] 00 Refill(s), For Atrial Fibrilatio n apixaban 5 2020-0 Yes 5 mg, PO, Me moria MG Oral - Q12H, tab, l Tablet 11:41: 0 [place] [Eliquis] 00 Refill(s), For Atrial Fibrilatio n apixaban 5 2020-0 Yes 5 mg, PO, Me moria MG Oral - Q12H, tab, l Tablet 11:41: 0 [place] [Eliquis] 00 Refill(s), For Atrial Fibrilatio n apixaban 5 2020-0 Yes 5 mg, PO, Me moria MG Oral 4- Q12H, tab, l Tablet 11:41: 0 [place] [Eliquis] 00 Refill(s), For Atrial Fibrilatio n apixaban 5 2020-0 Yes 5 mg, PO, Me moria MG Oral 4- Q12H, tab, l Tablet 11:41: 0 [place] [Eliquis] 00 Refill(s), For Atrial Fibrilatio n AMIODarone Yes 200 mg = 1 M emoria 200 mg oral 4-09 tab, PO, l tablet 11:38: Daily, # [place] 00 90 tab, 3 Refill(s) AMIODarone 2020-0 Yes 200 mg = 1 M emoria 200 mg oral 4-09 tab, PO, l tablet 11:38: Daily, # [place] 00 90 tab, 3 Refill(s) AMIODarone 2020-0 Yes 200 mg = 1 M emoria 200 mg oral 4-09 tab, PO, l tablet 11:38: Daily, # [place] 00 90 tab, 3 Refill(s) AMIODarone 2020-0 Yes 200 mg = 1 M emoria 200 mg oral 4-09 tab, PO, l tablet 11:38: Daily, # [place] 00 90 tab, 3 Refill(s)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 Hospit a .3.616483 l .8 2020-04-25 2020-04-25 Travel 1.2.840.1 1.2.634.595 8678 016691 Methodi 00:00:00 00:00:[address] 3.430.2.7 0.2.7.3.698 Ho spita .3.198250 084.8 l .8 2020-04-24 2020-04-24 Prep for Carol Ann, 1.2.840.1 [id number] 2 [id number] Methodi 00:00:00 00:00:00 Surgery Sarai Corbin. 72084.1.1 524 s t 3.430.2.7 Hospit a .3.478188 l .8 2020-04-22 2020-04-22 Telephone Meli, 1.2.840.1 [id number] 625 [id number] Methodi 00:00:00 00:00:[address] 3.430.2.7 Hospit a .3.156002 l .8 2020-04-22 2020-04-22 Travel 1.2.840.1 1.2.683.388 0038 893467 Methodi 00:00:00 00:00:[address] 3.430.2.7 0.2.7.3.698 Ho spita .3.917852 084.8 l .8 2020-04-21 2020-04-21 Emergency [facility] 1.2.840.1 [id number] 2 [id number] Methodi 06:51:00 10:43:[address] 3.430.2.7 Hospit a .3.044807 l .8 2020-04-21 2020-04-21 Orders [facility], 1.2.840.1 [id number] 21 [id number] Methodi 00:00:00 00:00:00 Only Sarai Corbin. 19408.1.1 550 s t 3.430.2.7 Hospit a .3.886656 l .8 2020-04-16 2020-04-16 [facility] 1.2.840.1 [id number] Methodi 00:00:00 00:00:00 Sarai M. 19089.1.1 673 s t 3.430.2.7 Hospit a .3.655889 l .8 2020-04-10 2020-04-10 Telephone [facility], 1.2.840.8 [id number] 21 [id number] Methodi 00:00:00 00:00:[address] 3.430.2.7 Hospit a .3.418542 l .8 2020-04-07 2020-04-07 Telephone Nahum, 1.2.840.1 [id number] 2099 705797 Methodi 00:00:00 00:00:[address] 3.430.2.7 Hospit a .3.908496 l .8 2020-04-01 2020-04-01 Orders Provider, 1.2.840.1 [id number] 2099 375202 Methodi 00:00:00 00:00:00 Only Historical 62260.1.1 049 s t 3.430.2.7 Hospit a .3.851378 l .8 2020-03-31 2020-03-31 Travel 1.2.840.1 1.2.113.809 3604 215328 Methodi 00:00:00 00:00:[address] 3.430.2.7 0.2.7.3.698 Ho spita .3.829523 084.8 l .8 2020-03-27 2020-03-27 Telephone Paula, Min 1.2.840.9 [id number] Methodi 00:00:00 00:00:[address] 3.430.2.7 Hospit a .3.524496 l .8 Results Test Description Test Time Test Comments Results Result Comments Source Gastrointestinal panel 2020-12-09 04:35:05 Test Item Value Reference Range Interpretation Comme nts Adenovirus 40/41 PCR (test code = Not Detected Specimen InformationSpecimen 5502) Source: StoolSp ecimen Site: Nonpreserved Astrovirus PCR (test code = 4790) Not Detected Campylobacter PCR (test code = Not Detected 2414) Clostridioides difficile PCR Not Detected (test code = 7115) Cryptosporidium PCR (test code = Not Detected 4216) Cyclospora cayetanensis PCR (test Not Detected code [...] Rotavirus PCR (test code = Not Detected 0495313) Salmonella PCR (test code = 4783) Not [...] PCR (test code = Not Detected 7124) [facility] Fr2525-59-38 19:17:40EXAMINATION: XR ABDOMEN 1 VW CLINICAL HISTORY: [...] clips are noted.[id number] [place] [facility] 1 Gqre5555-07-13 19:41:02EXAMINATION: OR FL < 1 HOUR C-arm fluoroscopy was requested in OR. Location: [facility] OR room 6 Procedure: EGD WITH [...] arm fluoroscopy was requested in OR. Location: [facility] OR room 6 Procedure: EGD WITH BOTOX INJECTION INTO THE PYLORUS, ENDOFLIP, ON TABLE ESOPHAGRAM (N/A ) Start: 1140 End:1222 FluoroTime: .19sec Dose: 7.8mGy Tech: A.BIMPRESSION:Intraoperative fluoroscopic images. Radiologist was not present during the examination.Separate operative report will be issued by the physician performingthe procedure.[id number] 2020-09-08 19:30:47 Test Item Value Reference Range Interpretation Comments Case number (test [id number] code = [id number]) Surgical pathology See link below for PDF report (test code = Lab Report 2255) Result status (test This is Supplemental code = [id number]) Report for [id number] [facility] 1 Vw Dinlwsxz2202-15-96 23:06:58EXAMINATION: XR CHEST 1 VW PORTABLE HISTORY: [...] enlarged, similar to prior. Bilateral shoulder arthroplasties. [facility]-[id number] Interface, Radiology Results Incoming - 09/06/2020 6:09PM [...] silhouette is enlarged, similar to prior.Bilateral shoulder arthroplasties.[facility]-[id number] Scott [facility] – GrapevineOyimafviSnwqoo8152-99-33 16:47:23Kirit Flood MD 09/05/2020 11:48 [address] Location: [...] RSI: Yes Number of Attempts at Approach: [address] [place] [address] 12 vsbo8277-05-39 23:21:56 Test Item Value Reference Range Interpretation [...] T wave abnormality, consider anterior ischemia-Abnormal ECG- [facility] qualitative RPD0124-29-10 22:48:41 Test Item Value Reference Range Interpretation Comments Interpretation (test Negative results do code = 1532122) not preclude 2019-nCoV infection and should not be used as the sole basis for treatment or other patient management decisions. Negative results must be combined with clinical observations, patient history, and epidemiological information. COVID-19 qualitative Not-Detected Not-Detected RT-PCR result (test code = 75155-2) COVID-19 qualitative See link below for C ase Number: RT-PCR (test code = PDF Lab Report [id number]) [place] 207271-04-09 16:31:00 Test Item Value Reference Range Interpretation Comments POC Activated Clotting Time (test code 153 s = POC Activated Clotting Time) [place] 752681-04-09 16:31:00 Test Item Value Reference Range Interpretation Comments POC Activated Clotting Time (test code 153 s = POC Activated Clotting Time) [address]04-09 16:31:00 Test Item Value Reference Range Interpretation Comments POC Activated Clotting Time (test code 153 s = POC Activated Clotting Time) [address]04-09 16:31:00 Test Item Value Reference Range Interpretation Comments POC Activated Clotting Time (test code 153 s = POC Activated Clotting Time) [place] 752681-04-09 16:31:00 Test Item Value Reference Range Interpretation Comments POC Activated Clotting Time (test code 153 s = POC Activated Clotting Time) [address]04-09 16:31:00 Test Item Value Reference Range Interpretation Comments POC Activated Clotting Time (test code 153 s = POC Activated Clotting Time) [address]04-09 16:31:00 Test Item Value Reference Range Interpretation Comments POC Activated Clotting Time (test code 153 s = POC Activated Clotting Time) [address]04-09 14:37:00 Test Item Value Reference Range Interpretation Comments POC Activated Clotting Time (test code 454 s = POC Activated Clotting Time) [address]04-09 14:37:00 Test Item Value Reference Range Interpretation Comments POC Activated Clotting Time (test code 454 s = POC Activated Clotting Time) [address]04-09 14:37:00 Test Item Value Reference Range Interpretation Comments POC Activated Clotting Time (test code 454 s = POC Activated Clotting Time) [address]04-09 14:37:00 Test Item Value Reference Range Interpretation Comments POC Activated Clotting Time (test code 454 s = POC Activated Clotting Time) [address]04-09 14:37:00 Test Item Value Reference Range Interpretation Comments POC Activated Clotting Time (test code 454 s = POC Activated Clotting Time) [facility]klXGCDMOODJE2725-56-13 14:37:00 Test Item Value Reference Range Interpretation Comments POC Activated Clotting Time (test code 454 s = POC Activated Clotting Time) [facility] HospitalTuazjmuQSSBGNVXJN4054-63-29 14:37:00 Test Item Value Reference Range Interpretation Comments POC Activated Clotting Time (test code 454 s = POC Activated Clotting Time) [facility] HospitalJngjonmUJEWHZTBVO5628-11-90 14:13:00 Test Item Value Reference Range Interpretation Comments POC Activated Clotting Time (test code 354 s = POC Activated Clotting Time) [facility] HospitalWsvcgamASWGTCJULE2351-30-60 14:13:00 Test Item Value Reference Range Interpretation Comments POC Activated Clotting Time (test code 354 s = POC Activated Clotting Time) [facility] HospitalMoqfgmwKTYDKDIKKN5356-75-62 14:13:00 Test Item Value Reference Range Interpretation Comments POC Activated Clotting Time (test code 354 s = POC Activated Clotting Time) [facility] HospitalBytllpbYLUEHWPTYI7394-88-43 14:13:00 Test Item Value Reference Range Interpretation Comments POC Activated Clotting Time (test code 354 s = POC Activated Clotting Time) [facility] HospitalHsfbhklFXEXEWVUME4776-04-86 14:13:00 Test Item Value Reference Range Interpretation Comments POC Activated Clotting Time (test code 354 s = POC Activated Clotting Time) [facility] HospitalBviljnjLQZHCJOLUY1706-43-67 14:13:00 Test Item Value Reference Range Interpretation Comments POC Activated Clotting Time (test code 354 s = POC Activated Clotting Time) [facility] HospitalZxciscgFAWFUBYRHQ2253-03-58 14:13:00 Test Item Value Reference Range Interpretation Comments POC Activated Clotting Time (test code 354 s = POC Activated Clotting Time) [facility] ATOYISV8909-55-42 10:37:00Negative (08/29/20 5:37 AM) [facility]CHE[facility] MBPEE7117-05-66 10:37:38266Towgqvxm HermannCHEM PANEL 2020-08-29 10:37:0028[facility] HermannCHEM CCNTD5689-33-37 10:37:001.01[facility] HermannCHEM XDZCK0554-06-74 10:37:13973Tkekpvfz HermannCHEM PZUIH0375-77-85 10:37:003.8[facility] HermannCHEM EXCZW9847-03-83 10:37:52740Mjhypkhx HermannCHEM ATOWJ5090-22-33 10:37:0028[facility] HermannCHEM VFQSG0712-02-02 10:37:009.8 [facility] HermannCHEM IKZPQ9230-16-90 10:37:0011.8[facility] HermannCHEM PANEL 2020-08-29 10:37:0059[facility] HermannCHEM PBDAU2139-00-37 10:37:002.9[facility] TtqtggcIKXTKGXOJP4826-03-05 10:37:006.8[facility] DqiwrgmNHRJEMTPQI7344-37-93 10:37:004.47[facility] AptsgwgGMFASMJDLT4804-53-94 10:37:0010.6[facility] UGJOFRMEQR4291-25-44 10:37:0034.0[facility] IkluqliSVFITKIZOR4171-60-68 10:37:00 76.1[facility]orial AegvulzNQXMGCDWQL0288-71-27 10:37:00 Test Item Value Reference Range Interpretation Comments MCH (test code = MCH) 23.8 pg 27.0-31.0 [facility] LncqjzpOEEJJFJZVA5920-21-35 10:37:0031.3[facility] HermannHEMATOLOGY 2020-08-29 10:37:0018.2[facility] BxvunwiCVPDCBNKJE8487-05-39 10:37:03013Somcgpsi NfymnvjTQEAZFPZUA2046-57-04 10:37:007.5[facility] HmqnbqnJTSQVDPAHM3267-84-94 10:37:00 Test Item Value Reference Range Interpretation Comments PT (test code = PT) 12.8 s 12.0-14.7 [facility] EfirttqFILDBMXCCZ1050-97-19 10:37:00 Test Item Value Reference Range Interpretation Comments INR (test code = INR) 0.97 1 0.85-1.17 [facility] EsclcwaUVDQXCCRUZ2415-73-50 10:37:00 Test Item Value Reference Range Interpretation Comments PTT (test code = PTT) 25.0 s 22.9-35.8 [facility] JafhyfcCEBXMENCGW2436-08-63 10:37:0070.5[facility] HermannHEMATOLOGY 2020-08-29 10:37:0018.8[facility] ZtguhnbBBKUFRJKAU8184-79-00 10:37:009.5[facility] VmayhdbQJUTXTESBF9495-08-28 10:37:000.9[facility] PbhqjsbUFYQATKXDW8647-39-89 10:37:000.3[facility] LnetjnvIGRIYLMOKY3813-68-54 10:37:004.8[facility] YDFHMWQQQU8820-95-42 10:37:001.3[facility] KkqykprEJQEBZTQIQ1248-49-41 10:37:000.6 [facility] ZbluamxIPQPQIUANL4756-33-20 10:37:000.1[facility] HermannHEMATOLOGY 2020-08-29 10:37:001+ *ABN*(08/29/20 5:37 AM)[facility] WwdjqqxRTAMOPBHJZ4282-92-79 10:37:00Not Detected (08/29/20 5:37 AM)[facility] HermannBLOOD BANK RESULTS 2020-08-29 10:37:00Negative (08/29/20 5:37 AM)[facility] HermannCHEM VAJNT0153-78-65 10:37:76161Zsnysqdd HermannCHEM GANCL7620-08-64 10:37:0028[facility] HermannCHEM IVFAF4490-10-45 10:37:001.01[facility] HermannCHEM JIABZ4976-11-54 10:37:90917 [facility] HermannCHEM PIJEX2950-73-97 10:37:003.8[facility] HermannCHEM PANEL 2020-08-29 10:37:97129Bzqcsbry HermannCHEM BODLO9036-76-75 10:37:0028[facility] HermannCHEM FVZCS6506-54-22 10:37:009.8[facility] HermannCHEM RBOUQ2516-33-66 10:37:0011.8[facility] HermannCHEM CZKAI3872-58-28 10:37:0059[facility] HermannCHEM CGXKI8446-77-23 10:37:002.9[facility] KpzfjneWFPPXKNKCA3433-04-96 10:37:006.8 Memorial OjjvwqxVMGSAHKKMV4766-28-58 10:37:004.47[facility] HermannHEMATOLOGY 2020-08-29 10:37:0010.6[facility] WvzxzizWJEDHCGEIV4945-84-66 10:37:0034.0[facility] YwfzsklWHZLMHIVSR6814-29-56 10:37:0076.1[facility] IissbgxGXSZCITNZR8249-30-76 10:37:00 Test Item Value Reference Range Interpretation Comments MCH (test code = MCH) 23.8 pg 27.0-31.0 [facility] TuhpeolEZHEYMFGZO8008-92-87 10:37:0031.3[facility] HermannHEMATOLOGY 2020-08-29 10:37:0018.2[facility] QwpwlvxOVPFEDBVCZ1876-00-06 10:37:88761Zkahzqav UasscgbMLFEANSJHX5421-70-59 10:37:007.5[facility] QpdcmtfFCWCQOLZYQ5921-13-31 10:37:00 Test Item Value Reference Range Interpretation Comments PT (test code = PT) 12.8 s 12.0-14.7 Memorial LyqouimXGXOEVMRFF0118-20-53 10:37:00 Test Item Value Reference Range Interpretation Comments INR (test code = INR) 0.97 1 0.85-1.17 [facility] HyssrziBNNVRGTVTG9866-56-37 10:37:00 Test Item Value Reference Range Interpretation Comments PTT (test code = PTT) 25.0 s 22.9-35.8 [facility] HgyybwfRNGUVHDECY2048-08-47 10:37:0070.5[facility] HermannHEMATOLOGY 2020-08-29 10:37:0018.8[facility] VnjgoyaULGLDSLWAL9974-18-95 10:37:009.5[facility] TtjvbnmLYPMWOEJFH8111-39-48 10:37:000.9[facility] YkzsydhGYHQPIWAPJ4945-89-54 10:37:000.3[facility] ZszxuoyQSHNLTBRJW4869-31-53 10:37:004.8[facility] PDREDYORHQ8676-77-88 10:37:001.3[facility] XpsadorBWEAJWSIKC9421-31-61 10:37:000.6 [facility] AqsolcoKQOKPIHDIV7511-18-54 10:37:000.1[facility] HermannHEMATOLOGY 2020-08-29 10:37:001+ *ABN*(08/29/20 5:37 AM)[facility] KyefrzfPTCVSNNLMQ7022-63-28 10:37:00Not Detected (08/29/20 5:37 AM)[facility] HermannBLOOD BANK RESULTS 2020-08-29 10:37:00Negative (08/29/20 5:37 AM)[facility] HermannCHEM PMUVN3477-39-84 10:37:88975Tnistcdi HermannCHEM ZIFPV4898-49-57 10:37:0028[facility] HermannCHEM DXIGM5693-06-54 10:37:001.01[facility] HermannCHEM FOIZR9990-70-73 10:37:44123 [facility] HermannCHEM URAAE9892-21-23 10:37:003.8[facility] HermannCHEM PANEL 2020-08-29 10:37:06264Chzbpaqx HermannCHEM GOQHX1852-76-75 10:37:0028[facility] HermannCHEM XOWSJ6587-89-33 10:37:009.8[facility] HermannCHEM FZJDI9795-77-44 10:37:0011.8[facility] HermannCHEM HAEQT2319-59-32 10:37:0059[facility] HermannCHEM YESSX3200-23-42 10:37:002.9[facility] SdczltlXNTUYWVBRG1222-44-76 10:37:006.8 [facility] AafncoiRUOBDISHUC2861-40-52 10:37:004.47[facility] HermannHEMATOLOGY 2020-08-29 10:37:0010.6[facility] VzcdjhsYBUDRIVIKJ9220-73-20 10:37:0034.0[facility] EfzparuAKPWWRCYBM9599-69-65 10:37:0076.1[facility] DarzjpsNPMSMNYTMT8041-05-83 10:37:00 Test Item Value Reference Range Interpretation Comments MCH (test code = MCH) 23.8 pg 27.0-31.0 Memorial CkpguouXBBODWVDFG8980-21-93 10:37:0031.3[facility] HermannHEMATOLOGY 2020-08-29 10:37:0018.2[facility] JmnafqyIDVZBCTUEZ2556-22-28 10:37:05264Mddbwamv PufenmbXDLIBXOBXW3338-45-95 10:37:007.5[facility] CosltudXHLGKTLBFH2927-98-91 10:37:00 Test Item Value Reference Range Interpretation Comments PT (test code = PT) 12.8 s 12.0-14.7 [facility] OhqaljlQUWZOCQBLM4970-06-13 10:37:00 Test Item Value Reference Range Interpretation Comments INR (test code = INR) 0.97 1 0.85-1.17 [facility] XjiuzffKKQPESZFJP4214-33-71 10:37:00 Test Item Value Reference Range Interpretation Comments PTT (test code = PTT) 25.0 s 22.9-35.8 Memorial LwcbkfqATKSYACIZG3421-63-71 10:37:0070.5[facility] HermannHEMATOLOGY 2020-08-29 10:37:0018.8[facility] ZuxfsfkOHLFXISRUS7406-45-41 10:37:009.5[facility] MybrnpvBGXSRNSFYK1545-48-06 10:37:000.9[facility] AfemoeqRMOYKAWOEZ2196-21-72 10:37:000.3[facility] YuffeprNNZRYGTCRI2047-76-03 10:37:004.8[facility] WRGEVJYSWK7586-05-91 10:37:001.3[facility] BhglyxrVQHINTQHOQ9216-32-36 10:37:000.6 [facility] TyblydsPWCYRPZAOH3440-21-82 10:37:000.1[facility] HermannHEMATOLOGY 2020-08-29 10:37:001+ *ABN*(08/29/20 5:37 AM)[facility] DcmgjbjJTIUCPFBSV8308-40-74 10:37:00Not Detected (08/29/20 5:37 AM)[facility] HermannBLOOD BANK RESULTS 2020-08-29 10:37:00Negative (08/29/20 5:37 AM)[facility] HermannCHEM RYFRH8391-29-45 10:37:48430Qvxbazxh HermannCHEM LAOIF0915-15-26 10:37:0028[facility] HermannCHEM YSDRK4958-55-72 10:37:001.01[facility] HermannCHEM PTRBB8598-92-83 10:37:14628 [facility] HermannCHEM CTLSN8082-03-44 10:37:003.8[facility] HermannCHEM PANEL 2020-08-29 10:37:24425Pjmhbpok HermannCHEM WDIXD9518-86-81 10:37:0028[facility] HermannCHEM PMWJQ0960-88-03 10:37:009.8[facility] HermannCHEM KFQRF0267-14-16 10:37:0011.8[facility] HermannCHEM VJQJZ8283-89-10 10:37:0059[facility] HermannCHEM KCDEC6592-37-54 10:37:002.9[facility] QgyhndaFSYZYICVDX8820-64-83 10:37:006.8 [facility] BhrjejnSMJWAVXAPK0149-61-80 10:37:004.47[facility] HermannHEMATOLOGY 2020-08-29 10:37:0010.6[facility] ZoxlrebBRGVWMGAZR4940-52-41 10:37:0034.0[facility] RyovteoOJCJSNJEPL6946-55-08 10:37:0076.1[facility] CgefwlsNBNDLFJXLQ5363-85-45 10:37:00 Test Item Value Reference Range Interpretation Comments MCH (test code = MCH) 23.8 pg 27.0-31.0 [facility] IczxqvzMGWBBAFNVJ8341-23-56 10:37:0031.3[facility] HermannHEMATOLOGY 2020-08-29 10:37:0018.2[facility] QoiwpetMGLTVDQXYB9948-33-74 10:37:58962Yslekpds BcyugspGLRTETEQTE5972-18-11 10:37:007.5[facility] BwoocctMUZWBYECDA7776-26-42 10:37:00 Test Item Value Reference Range Interpretation Comments PT (test code = PT) 12.8 s 12.0-14.7 [facility] WypcidiFICEUSAVIQ6074-95-75 10:37:00 Test Item Value Reference Range Interpretation Comments INR (test code = INR) 0.97 1 0.85-1.17 [facility]BWZTPHCJDL0328-81-32 10:37:00 Test Item Value Reference Range Interpretation Comments PTT (test code = PTT) 25.0 s 22.9-35.8 [facility] CjumumgSYDIQAQHKV2155-50-14 10:37:0070.5[facility] 2020-08-29 10:37:0018.8[facility] SlpzbdhVZCGZZSXIQ9215-26-63 10:37:009.5[facility] ZzwdibtAAZPAXXSXT9745-75-21 10:37:000.9[facility] BfirlodBWGLGGYNVT5078-68-06 10:37:000.3[facility] NtiskhnMGRBYELWEH0663-15-73 10:37:004.8[facility] RTNBOGNHFM7468-63-63 10:37:001.3[facility] JatctruPRFUUCXFCL4515-91-14 10:37:000.6 [facility] UfrxzbaNBOIMKEIXT9221-35-09 10:37:000.1[facility] 2020-08-29 10:37:001+ *ABN*(08/29/20 5:37 AM)[facility] TyiwpovRDQMAVLPPI5104-68-25 10:37:00Not Detected (08/29/20 5:37 AM)[facility] 2020-08-29 10:37:00Negative (08/29/20 5:37 AM)[facility]annCHEM KAUNR2929-19-77 10:37:56699Mlzfovyq HermannCHEM YZPMN9338-76-55 10:37:0028[facility]annCHEM WFJTX1434-90-07 10:37:001.01[facility]annCHEM NSHKH3187-76-51 10:37:21598 [facility]annCHE[facility] DCZVQ8618-84-46 10:37:003.8[facility]annCHEM PANEL 2020-08-29 10:37:48322Swubqnzs HermannCHEM FIMDT8802-04-42 10:37:0028[facility]annCHE[facility] PNQCE6224-55-22 10:37:009.8[facility]annCHEM PQGTB8652-51-21 10:37:0011.8[facility]annCHEM FTXCA0338-10-07 10:37:0059[facility]annCHEM KCMGT3209-46-87 10:37:002.9[facility] CnluhavYFTFTAOWTQ0891-46-66 10:37:006.8 [facility] UikspyhWGWNTMWPDR0641-16-31 10:37:004.47[facility]annHEMATOLOGY 2020-08-29 10:37:0010.6[facility] JtfztayEWIAVPMZXU3319-46-27 10:37:0034.0[facility] DxjdeivKHWIHSWCFU2809-97-11 10:37:0076.1[facility] YyjmfdfVISLPMKYAI3016-67-73 10:37:00 Test Item Value Reference Range Interpretation Comments MCH (test code = MCH) 23.8 pg 27.0-31.0 [facility] CznpxdvPZMMDMGIRE1856-04-49 10:37:0031.3[facility]annHEMATOLOGY 2020-08-29 10:37:0018.2[facility] YpfdzluOKCNKDQKCX5710-02-67 10:37:68954Hdhxymdf AwfxphtPFWHNFJVSB4367-38-76 10:37:007.5[facility] ShifsshOEURZAXKBM5492-80-74 10:37:00 Test Item Value Reference Range Interpretation Comments PT (test code = PT) 12.8 s 12.0-14.7 [facility] QkfsdhsJKKFFQRGFQ4741-62-58 10:37:00 Test Item Value Reference Range Interpretation Comments INR (test code = INR) 0.97 1 0.85-1.17 [facility] MxfpahwQSCHLZCELD7821-99-79 10:37:00 Test Item Value Reference Range Interpretation Comments PTT (test code = PTT) 25.0 s 22.9-35.8 [facility] MznefgnUHCAXXVSKN6187-16-28 10:37:0070.5[facility]annHEMATOLOGY 2020-08-29 10:37:0018.8[facility] QucrpijTVYRNQQLZA0179-95-72 10:37:009.5[facility] IhaajrtTCZKLCWCOX8962-11-23 10:37:000.9[facility] ZgscnkoZMABVLLPZL9996-58-08 10:37:000.3[facility] KaidpwfMGQGSIQMOO2422-41-22 10:37:004.8[facility] NBNARVPKMS3158-43-72 10:37:001.3[facility] CnovpkyOTDEGICRSQ3971-47-57 10:37:000.6 [facility] WdjtvkxKUOPWZMYWN1580-83-55 10:37:000.1[facility]annHEMATOLOGY 2020-08-29 10:37:001+ *ABN*(08/29/20 5:37 AM)[facility] FokbnvaNPETSLHGNO9588-24-89 10:37:00Not Detected (08/29/20 5:37 AM)[facility] HermannBLOOD BANK RESULTS 2020-08-29 10:37:00Negative (08/29/20 5:37 AM)[facility]annCHEM YBXSP9241-16-66 10:37:21026Nniydmrz HermannCHEM UZJNI7507-06-52 10:37:0028[facility]annCHEM RJRII2330-12-45 10:37:001.01[facility]annCHEM OWSQT8431-25-46 10:37:26919 [facility] FUPLB3847-46-91 10:37:003.8[facility]annCHEM PANEL 2020-08-29 10:37:28616Jtvgsbbm HermannCHEM WUVPD1035-81-99 10:37:0028[facility]annCHEM UWGYT6665-78-95 10:37:009.8[facility]annCHEM SNHRR1140-76-17 10:37:0011.8[facility]annCHEM ZRGVN6481-67-01 10:37:0059[facility]annCHEM QDIGS4101-02-47 10:37:002.9[facility] EyrvmkpCKYNOIVKFT8365-69-74 10:37:006.8 [facility] IhzvokfNABDCAYVJL0528-03-72 10:37:004.47[facility] HermannHEMATOLOGY 2020-08-29 10:37:0010.6[facility] IastjudVECOOGSBFM6042-92-21 10:37:0034.0[facility] WqeqnrrWTIXPRAURT3367-96-21 10:37:0076.1[facility] XztccnaVKBUZCPPWC0763-08-74 10:37:00 Test Item Value Reference Range Interpretation Comments MCH (test code = MCH) 23.8 pg 27.0-31.0 [facility] VqxzmgsOGBHELJZIX5128-18-26 10:37:0031.3[facility] HermannHEMATOLOGY 2020-08-29 10:37:0018.2[facility] NxykdcoUGJFEXHNEP3303-12-55 10:37:64912Nwbkmgjc BuqcbxtNFJOMNOBPV0243-14-76 10:37:007.5[facility] PxpmrakTXDIEJZGKN6272-26-43 10:37:00 Test Item Value Reference Range Interpretation Comments PT (test code = PT) 12.8 s 12.0-14.7 [facility] JgshghhIVYZZECDPO6371-99-32 10:37:00 Test Item Value Reference Range Interpretation Comments INR (test code = INR) 0.97 1 0.85-1.17 [facility] ChygfsjHBPRZMNSXL3996-56-61 10:37:00 Test Item Value Reference Range Interpretation Comments PTT (test code = PTT) 25.0 s 22.9-35.8 [facility] AxzwewfOVEQRPSXSJ1838-92-84 10:37:0070.5[facility] HermannHEMATOLOGY 2020-08-29 10:37:0018.8[facility] QpnkkxdDDBDUAXRPN2375-78-81 10:37:009.5[facility] FiwvmzfOWXCSTRYWQ7244-05-70 10:37:000.9[facility] GogoiihBRAQBXAGOS3857-92-40 10:37:000.3[facility] EjbnozvWIHNXYJAPE2551-05-28 10:37:004.8[facility] [place] [facility] OEEHIXTRWA9034-13-40 10:37:001.3[facility] WojymlpZXQDGHECET2387-80-62 10:37:000.6 [facility] DwglthbUJAVSVETXR8701-23-43 10:37:000.1[facility] HermannHEMATOLOGY 2020-08-29 10:37:001+ *ABN*(08/29/20 5:37 AM)[facility] RgdjpseEZOASLFQXL5571-18-70 10:37:00Not Detected (08/29/20 5:37 AM)[facility]annBLOOD BANK RESULTS 2020-08-29 10:37:00Negative (08/29/20 5:37 AM)[facility]annCHEM RVOKD5591-86-68 10:37:23707Mtsfgfts HermannCHEM SYZKO2133-41-57 10:37:0028[facility]annCHEM ZYRYT7637-95-15 10:37:001.01[facility]annCHEM EWCMG7816-80-64 10:37:20457 [facility] YAPBM3031-71-89 10:37:003.8[facility] HermannCHEM PANEL 2020-08-29 10:37:41976Fsngyvuu HermannCHEM MONNA3973-82-56 10:37:0028[facility]annCHEM TOQZZ4327-09-73 10:37:009.8[facility]annCHEM HAOKZ2719-22-85 10:37:0011.8[facility]annCHEM MAVFC8883-41-40 10:37:0059[facility]annCHEM BCBFL8889-26-69 10:37:002.9[facility] XmagoyyDURYEKUWJG5097-13-40 10:37:006.8 [facility] RxyeovhVNCUBFEPCK6886-79-65 10:37:004.47[facility] HermannHEMATOLOGY 2020-08-29 10:37:0010.6[facility] XtglrzqALJLCSKFLS2457-64-54 10:37:0034.0[facility] HhujatfESLSEOVORR3268-04-28 10:37:0076.1[facility] NkfqsujZFVSJUROTA4834-74-76 10:37:00 Test Item Value Reference Range Interpretation Comments MCH (test code = MCH) 23.8 pg 27.0-31.0 [facility] DallasBjawxkrFCPKBOPKWS8084-61-07 10:37:0031.3[facility] HermannHEMATOLOGY 2020-08-29 10:37:0018.2[facility] OkvpwodBVZKIPQKTF2954-08-50 10:37:84269Viplpjys FmazyaiQRVOKSSXOO4575-14-92 10:37:007.5[facility] CdmmmzvLTUFKVATEX4091-30-82 10:37:00 Test Item Value Reference Range Interpretation Comments PT (test code = PT) 12.8 s 12.0-14.7 [facility] DiyujspZCQPZSRUPW0834-54-88 10:37:00 Test Item Value Reference Range Interpretation Comments INR (test code = INR) 0.97 1 0.85-1.17 [facility] RictugiDUNOJWQNOK3102-90-05 10:37:00 Test Item Value Reference Range Interpretation Comments PTT (test code = PTT) 25.0 s 22.9-35.8 [facility] RodxgyhMGYRSKGCYL8658-99-51 10:37:0070.5[facility] HermannHEMATOLOGY 2020-08-29 10:37:0018.8[facility] ClsecrpEXGABYAWPI6122-63-18 10:37:009.5[facility] IscfwbcVZIRYMPQLO6491-28-44 10:37:000.9[facility] JanffciQTPVGCUHTN4463-96-65 10:37:000.3[facility] NgbhvkqIFJKCGNBCT0354-82-87 10:37:004.8[facility] YIVYDFKXIK3780-91-70 10:37:001.3[facility] RlvafbmALVTGDEZFH0252-94-51 10:37:000.6 [facility] RqforgmSMTOFNCHPO3064-73-78 10:37:000.1[facility] HermannHEMATOLOGY 2020-08-29 10:37:001+ *ABN*(08/29/20 5:37 AM)[facility] VrfyypzLDHHBAICGU1496-14-07 10:37:00Not Detected (08/29/20 5:37 AM)[facility]annNM Gastric Emptying 2020-08-27 23:14:39PROCEDURE: NM GASTRIC EMPTYING [...] rate, with complete emptying by 4 hours. [facility]-[id number] Interface, Radiology Results - 08/27/2020 6:17 PM [...] rate, with complete emptying by 4 hours. [facility]-[id number] HospitalMiscellaneous referral test 2020-05-09 21:24:58 Test Item Value Reference Range Interpretation Comments Misc test HIV-1 RNA QUAL PCR name (test code = 2566) Misc test see note Human Immunodef iciency result (test Virus 1 (HIV-1) by code = 1730) Qualitative Medical Coder-M ediated Amplification ( TMA) [facility] test code 7779519 HIV-1 by Qualit ative TMA See Note SOURCE/SPECIMEN PLASMA HIV-1 RNA, QUAL ITATIVE TMA HIV-1 RNA, QL TMA T PAYROLL MANAGER Test Not Performed. Initial testing necessi tated a repeat, but the re was insufficient sa mple to perform repeat. SAMPLE LEFT FOR REPEAT IS 50 uL. NEED 1000 u L TO RUN REPEAT. This te st was performed using the APTIMA(R) HIV-R NA Qualitative Ass ay (Gen-Probe). ======== ======== Te st performed by:[address] [address] KYLE (test HIVQL - HIV-1 RNA, code = KYLE) Qualitative TMA (FROZEN)[facility] Test Code: 8595458Yqwucw: plasma [facility] venous upper jiypnayhu1008-78-58 04:57:00 Vascular Ultrasound Laboratory Upper Extremity Venous Report [address] [place] [address] Pat.Name: LIO WATTS Pat.ID: [id number] St.Date: 04/30/2020 Refer.MD: ELISEO ARCE MD Exam Time: 5:04:00 PM Study Type:UE Venous Age: 9 1955,65Y Sex: FEMALE Sonogrphr: Dwayne Macias, RVChristian, RCS Pat. Stat.:Inpatient Room: [place] [address] 2020 Tape Vol: EDGAR, CPT - 4: 53824 Echo Event ID:[id number] Order ID: [id number] Reason for Study:Arm swelling or pain, DVT [...] veins.*Preliminary result reported to ASHLEY Santos @ 7666 on 04/30/20.PHYSICIAN INTERPRETATION Venous examination of the both upper extremities and neck demonstratedno evidence of deep venous thrombosis. Total superficial vein thrombosis of the right basilic vein. FINDINGS: Signed 04/30/2020 10:57 PMFrancis Cabral MD, Akil, Radiology Results In - 04/30/2020 10:58 PM CST Vascular Ultrasound Laboratory Upper Extremity Venous Report [address] [address], [place] [address] [facility].Name: LIO WATTS Marta.ID: [id number] .Date: 04/30/2020 Refer.MD: ELISEO ARCE MD Exam Time: 5:04:00 PM Study Type:UE Venous Age: 9 1955,65Y Sex: FEMALE Sonogrphr: Dwayne Macias, IBIS, SANKET Pat. Stat.:Inpatient Room: [place] [address] 2020 Tape Vol: JM, CPT - 4: 80348 Echo Event ID:[id number] Order ID: [id number] Reason for Study:Arm swelling or pain, DVT [...] veins.*Preliminary result reported to ASHLEY Santos @ 7657 on 04/30/20.PHYSICIAN INTERPRETATION Venous examination of the both upper extremities and neck demonstratedno evidence of deep venous thrombosis. Total superficial vein thrombosis of the right basilic vein. FINDINGS: ------Signed 04/30/2020 10:57 PMFrancis Cabral MD, [facility] HospitalXR Chest 2 Ar2009-14-27 22:21:01EXAMINATION: XR CHEST 2 VW CLINICAL HISTORY: [...] cardiopulmonary process or active disease of the chest.[id number] HospitalMidline Unsuccessful Qeixkue0811-94-91 17:14:34ANicole zhang RN 04/30/2020 11:25 AMMidline Unsuccessful Attempt Date/Time: 04/30/2020 11:14 AMPerformed by: Nicole Dailey, RNAuthorized by: Eilseo Arce MD Consent: Consent obtained: Ve rbal [...] place a PIV g.20 in lower arm .[facility] Abdomen 1 Vw Nuzgfnej8483-14-67 16:20:14EXAMINATION: XR ABDOMEN 1 VW PORTABLE CLINICAL HISTORY: Abdominal pain post op COMPARISON: No prior IMPRESSION:1.Residual barium within the colon throughout. No small bowel obstruction noted. [facility]-2U [id number] Interface, Radiology Results Incoming - 04/30/2020 10:23 AM CST EXAMINATION: XR ABDOMEN 1 VW PORTABLECLINICAL HISTORY: Abdominalpain post opCOMPARISON: No priorIMPRESSION:1.Residual barium within the colon throughout. No smallbowel obstruction noted.[facility]-[id number] Scott & White Medical Center – PflugervillePtycpvnkLjkfac0776-23-95 20:57:57Carlee Malloy MD 04/28/2020 2:59 PMAirwayPerformed by: Carlee Malloy MDAuthorized by: Carlee Malloy MD Location: ORUrgency: ElectiveDifficult Airway: No Anesthesiologist: Kvng Malloy, FLORENTINesident/WASTEWATER TREATMENT OPERATOR/AA: Allan Morocho, DOPerformed by: resident/WASTEWATER TREATMENT OPERATOR/AAPreoxygenated juoc561% O2: Yes C- spine Precautions Maintained Throughout: [...] No Number of Attempts at Approach: 1 ScientologySaint [facility] University HospitalTransthoracic Echocardiogram Complete, (w Contrast, Strain and 3D if needed)2020-04-28 00:20:00 Echocardiography Report [address] [place] [address] Pat.Name: LIO WATTS Marta.ID: [id number] .Date: 04/27/2020 Refer.MD: ELISEO ARCE MD Exam Time: 2:21:00 PM Study Type:Routine Echo Height: 64in Weight: 213lb BSA: 2.01 m2 Age: 9 1955,65Y Sex: FEMALE BP: 128/89 HR: 102 bpm Sonogrphr: SANKET Perkins Pat. Stat.:Inpatient Room: [facility] Study Status:Final Echo Event ID:[id number] Order ID: [id number] Reason for Study:Atrial FibrillationHistory / Clinical:Hypertension Procedures: [...] estimate PA systolic pressure. MEASUREMENTS: 2DParasternal Long Hanna Ao An 2.2 cm LVPWd 1 cm [...] - 04/27/2020 6:21 PM CST Echocardiography Report [address] [address] Pat.Name: LIO WATTS Marta.ID: [id number] .Date: 04/27/2020 Refer.MD: ELISEO ARCE MD Exam Time: 2:21:00 PM Study Type:Routine Echo Height: 64in Weight: 213lb BSA: 2.01 m2 Age: 9 1955,65Y Sex: FEMALE BP: 128/89 HR: 102 bpm Sonogrphr: SANKET Perkins Pat. Stat.:Inpatient Room: [facility] Study Status:Final Echo Event ID:[id number] Order ID: [id number] Reason for Study:Atrial FibrillationHistory / Clinical:Hypertension Procedures: [...] PA systolic pressure.- MEASUREMENTS: ---- 2DParasternal Long Hanna Ao An 2.2 cm LVPWd 1 cm [...] CI 3.1 l/m/m2 Signed 04/27/2020 06:20 PMMoformerly [facility] MarielyNicoPalo [facility] Esophagram Double Elsjrbda2249-25-30 18:07:12EXAMINATION: FL ESOPHAGRAM DOUBLE CONTRAST CLINICAL HISTORY: [...] spontaneous gastroesophageal reflux. [id number] Interface, Radiology Results - 04/25/2020 12:10 PM [...] Wo Contrast Abdomen Wo Contrast Pelvis Wo Jhxscjab7514-62-09 15:23:55EXAMINATION: CT CHEST WO CONTRAST ABDOMEN WO [...] chronic and incidental findings as detailed above. [facility]-[id number] Dictated and approved by radiology resi dent/fellow: Jenna Valenzuela M.D. I, Medhat Flowers Jr., M.D., personally reviewed the images and resident's/fellow's findings and agree with the final report.[facility], Radiology Results Incoming - 04/21/2020 9:27 [...] aorta.4.Additional chronic and incidental findings as detailed above.[facility]-[id number] and approved by residential director/fellow: Jenna Valenzuela M.D.I, Medhat Flowers Jr., M.D., personally reviewed the images and resident's/fellow's findings and agree with the final report. [facility], GC, TV,PCR, IN WNDRE4657-76-60 15:38:00 Test Item Value Reference Range Interpretation Comments FT (test code = CHTR) Not detected (qualifier Not Detected N value) FT (test code = Not detected (qualifier Not Detected N NGONO) value) FT (test code = TRVG) Not detected (qualifier Not Detected N value) URINALYSIS WITH ISRCSTABUMA5496-79-80 10:57:00 Test Item Value Reference Range Interpretation Comments Color (test code = UCOLR) Dk. Yellow Clarity (test code = UCLAR) Hazy Glucose (test code = UGLUC) NEGATIVE NEGATIVE N Bilirubin (test code = UBILI) NEGATIVE NEGATIVE N Ketones (test code = UKET) NEGATIVE NEGATIVE N Specific Sim[place] (test code = 1.025 1.005-1.030 A USPGR) [...]
--- NOTE | 2021-05-04 18:24 | ER ---
Nurse's Notes [facility] Name: Marjan Fleming Age: 66 yrs Sex: Female : 1955 Arrival Date: 05/04/2021 Time: 16:15 Bed Waiting Private MD: Lele Rahman H Diagnosis: Presentation: 05/04 16:19 Chief complaint: Patient states: I can't seem to catch my breath; I use 2l NC at home [facility] but I took it off cause my nose started to bleed. Coronavirus screen: Vaccine status: Patient reports receiving the 2nd dose of the covid vaccine. Client denies travel out of the [place] in the last 14 days. Ebola Screen: Patient negative for fever greater than or equal to 101.5 degrees Fahrenheit, and additional compatible Ebola Virus Disease symptoms Patient denies exposure to infectious person. Patient denies travel to an Ebola-affected area in the 21 days before illness onset. Initial Sepsis Screen: Does the patient meet any 2 criteria? No. Patient's initial sepsis screen is negative. Does the patient have a suspected source of infection? No. Patient's initial sepsis screen is negative. Risk Assessment: Do you want to hurt yourself or someone else? Patient reports no desire to harm self or others. Onset of symptoms was May 04, 2021. 16:19 Method Of Arrival: Ambulatory [facility] 16:19 Acuity: BLAYNE 3 5 Triage Assessment: 16:22 General: Appears in no apparent distress. obese, unkempt, Behavior is calm, 5 cooperative, appropriate for age. Pain: Denies pain. Respiratory: Reports shortness of breath at rest Onset: The symptoms/episode began/occurred this morning, the patient has mild shortness of breath. Historical: - Allergies: 16:21 TRIMETHOPRIM; 5 16:21 sulfamethoxazole (bulk); 5 16:21 Stadol; [facility] 16:21 Reglan; [facility] 16:21 Fentanyl; 5 16:21 butorphanol tartrate; [facility] 16:21 Bactrim DS; [facility] - PMHx: 16:21 HIV; Atrial Fib; Bipolar disorder; Chronic pain; COPD; esophageal varices; Hepatitis; 5 Hypertension; Migraines; Panic Attacks; Anxiety; - PSHx: 16:21 Appendectomy; Bilateral shoulder repair; Cholecystectomy; hernia repair; jh5 - Immunization history:: Adult Immunizations up to date. - Social history:: Smoking status: Patient reports the use of cigarette tobacco products, Patient/guardian denies using tobacco, the patient reports quitting approximately 1 years ago, Patient/guardian denies using. Assessment: 16:22 Cardiovascular: Capillary refill < 3 seconds Patient's skin is warm and dry. [facility] Respiratory: Airway is patent Respiratory effort is even, unlabored, Breath sounds are clear. Vital Signs: 16:19 BP 152 / 75; Pulse 64; Resp 20; Temp 98.2; Pulse Ox 99% ; Weight 111.13 kg; Height 5 [facility] ft. 4 in. (162.56 cm); 16:19 Body Mass Index 42.05 (111.13 kg, 162.56 cm) [facility] ED Course: 16:15 Patient arrived in ED. mr 16:16 Lele Rahman DO is Private Physician. mr 16:[address] [facility] Administered Medications: No medications were administered Outcome: 18:23 Eloped from waiting room, before seeing physician 18:23 Patient left the ED. Signatures: Jessie Hill mr Sandra Cadet, RN RN Sharee Castrejon RN RN jh5
[2021-05-04 18:41] VITALS: BP 152/75; TEMP 98.2; O2SAT 99
== END 2021-05-04 18:23 | disposition left against medical advice (07) ==
LOC: ER 16:12
DX: Z53.21 Procedure and treatment not carried out due to patient leaving prior to being seen by health care provider (principal)
CPT/HCPCS: 99281

== ENCOUNTER 2021-05-15 17:35 | Inpatient (IN) | payer OTHER ==
[2021-05-15] MEDS ORDERED: IPRATROPIUM BROM 0.5MG/2.5ML ONE (17:55)
[2021-05-15] MEDS ORDERED: METHYLPREDNISOLONE 125 MG INJ ONE (17:55)
[2021-05-15] MEDS ORDERED: ALBUTEROL 2.5 MG/3 ML NEB SOL ONE (17:55)
--- NOTE | 2021-05-15 18:11 | RAD REPORT ---
EXAM DESCRIPTION: RAD - Chest Single View - 05/15/2021 6:02 pm CLINICAL HISTORY: SOB Chest pain. COMPARISON: Chest Single View dated 04/06/2021; Chest Single View dated 04/03/2021; Chest Single Vie w dated 03/29/2021; Chest Single View dated 03/27/2021 FINDINGS: Portable technique limits examination quality. Moderate bilateral pulmonary opacities are present. This may represent pneumonia or pulmonary edema. The heart is moderately enlarged. Bilateral shoulder arthroplasties are noted. IMPRESSION: Probable moderate CHF.
--- OUTSIDE RECORDS SUMMARY | 2021-05-15 18:17 | XMS REPORT | Continuity of Care Document ---
:[address] [facility] t Address [address] [place] [address] Care Team Providers Name Role Phone Rahman Primary Care Physician HEMATPOUR Attending Clinician Unavailable Ronald DHILLON Attending Clinician Prabhu SANCHEZ Attending Clinician Unavailable Luisana Maharaj NP Attending Clinician Yazmin JENKINS Attending Clinician [facility] Attending Clinician Unavailable Marika Bal Attending Clinician [...] Number Effective Date Expiration Date Christian lloyd [facility] [id number] 2012 STAR PLUS 00:00:00 Problems Condition Condition Condition Status Onset Resolution Last Treating Co mments Source Name Details Category Date Date Treatment Clinician Date Gastropare Gastropare Disease Active Overview : Methodi sis sis 4-[address] 00:00: [facility] 00 note l might be different from the original. Added automatic ally from request for surgery [id number] Dysphagia Dysphagia Disease Active Overview: Methodi 4-[address] 00:00: g of this [facility]osp[facility] 00 note l might be different from the original. 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 00:00: [place] virus virus 00 Medical (HIV) (HIV) Branch disease disease Bipolar 2 Bipolar 2 Disease Active Uni vers disorder disorder 11-18 ity of 00:00: Medical Branch Chronic Chronic Disease Active Univers hepatitis hepatitis 11-18 ity of C C 00:00: [place] [facility] Hypertensi Hypertensi Disease Active U nivers on on 11-18 ity of 00:00: [place] [facility] Allergies, Adverse Reactions, Alerts Allergy Allergy Status Severity Reaction(s) Onset Inactive Treating Comm ents Source Name Type Date Date Clinician Metoclop Propensi Active [place] ramide ty to 12-12 Health adverse 00:00: reaction 00 s Butorpha Drug Active Unknown - Unive rs [...] 2 reaction ity o f 00:00: [place] 00 Medical Branch Trimetho Propensi Active Hives Univer s prim ty to 2-08 ity of adverse 00:00: [place] reaction 00 Medical s Branch Fentanyl Allergy Active Unknown Other UT to 208 reaction( Health substanc 00:00: s): e 00 HivesUnkn own reactionU nknown reactionU nknown reactionU nknown reactionU nknown reaction Metoclop Propensi Active Method i ramide ty to -04 st Hcl adverse 00:00: Hospita reaction 00 [...] Date Stop Date Source Natural father Diabetes [facility] Natural father Other - see comments [facility] Natural [facility] Natural father Hypertension [facility] Natural father [facility] Natural mother Cancer [facility] Social History Social Habit Start Date Stop Date Quantity Comments Source History [facility] Health Alcohol Std Drinks History [facility] Health Alcohol Binge Exposure to Not sure [facility] SARS-CoV-2 (event) History of tobacco Smoker [facility] Cigarettes smoked 2020-12-08 2020-12-[address] current (pack per 00:00:00 00:00:00 Hospita l day) - Reported Cigarette 2020-12-08 2020-12-08 [facility] pack-years 00:00:00 00:00:00 Hospital Tobacco use and 2020-10-31 2020-10-31 Never used [facility] exposure 00:00:00 00:00:00 Alcohol intake 2020-10-31 2020-10-31 Ex-drinker [facility] 00:00:00 00:00:00 (finding) History [facility] 2020-10-31 2020-10-31 1 [facility] Alcohol Frequency 00:00:00 00:00:00 Alcohol Comment 2016-09-23 2016-09-23 rare [facility] 00:00:00 00:00:00 Hospital Tobacco Comment 2015-02-14 2015-02-14 Smokes approx 1-2 Un iversity of 00:00:00 00:00:00 cigarettes per [facility] day when she Branch smokes Sex [birth year] [facility] 00:00:00 00:00:00 Smoking Status Start Date Stop Date Source Former smoker 2020-10-31 00:00:00 2020-10-31 00:00:00 [facility] Unknown if ever smoked [facility] Medications Ordered Filled Start Stop Current Ordering Indication Dosage Frequency Signature Comments Components Source Medication Medication Date Date Medication? Clinician (SIG) Name Name SERTraline 2020-05 Yes [id number] 200mg Take 2 Univers 100 mg 2-21 tablets by ity of tablet 00:00: mouth [place] 00 daily. Medical Branch busPIRone 2020-05 Yes [id number] 30mg Take 1 Un matt 30 mg 2-21 tablet by ity of tablet 00:00: mouth 2 [place] 00 (two) Medical times Branch daily. buPROPion 2020-05 Yes [id number] 150mg Take 1 U nivers XL 2-21 tablet by ity of (WELLBUTRIN 00:00: mouth [place] XL) 150 mg 00 daily. Medical 24 hr Branch tablet LORazepam 2 2020-05 Yes [id number] 2mg Take 1 Univers mg tablet -06 tablet by ity o f 00:00: mouth 2 [place] 00 (two) Medical times Branch daily as needed (anxiety). LORazepam 2 2020-05- No [id number] 2mg Take 1 Univers mg tablet 05-25- tablet by ity of 00:00: 00:00 mouth 2 [place] 00 :00 (two) Medical times Branch daily as needed (anxiety). raltegravir Yes [id number] 400mg Take 1 Univers (ISENTRESS) 9-24 tablet by ity of 400 mg 00:00: mouth 2 [place] tablet 00 (two) Medical times Branch daily. buPROPion 2020- No [id number] 150mg Take 1 Univers XL 01-28 tablet by ity of (WELLBUTRIN 00:00: 00:[place] XL) 150 mg 00 :00 daily. Medical 24 hr Branch tablet SERTraline 2020- No [id number] 200mg Take 2 Univers 100 mg 01-28 tablets by ity of tablet 00:00: 00:00 mouth [place] 00 :00 daily. Medical Branch busPIRone 2020- No [id number] 30mg Take 1 U nivers 30 mg 8-30 - tablet by ity of tablet 00:00: 00:00 mouth 2 [place] 00 :00 (two) Medical times Branch daily. metoprolol 2021- No [id number] Take 1 UT tartrate 12-15- tablet Health (Lopressor) 00:00: 05:59 (100 mg 100 MG 00 :00 total) by tablet mouth 2 (two) times a day AND 0.5 tablets (50 mg total) every night. raltegravir Yes 400mg Q.5D Take 400 U T (Isentress) 7-23 mg by Health 400 MG 13:03: mouth 2 tablet 05 (two) times a day. raltegravir Yes 400mg Q.5D Take 400 U T (Isentress) 7-23 mg by Health 400 MG 13:03: mouth 2 tablet 05 (two) times a day. lisinopril 0 Yes 40mg Q.5D Take 40 [...] area in groin) hydrALAZINE 0 Yes 50mg Q.[id number] Take 50 mg Methodi (APRESOLINE 7-19 [id number] mouth [address] ) 50 MG 15:51: 3D (three) Hospita tablet 25 times a l day. busPIRone 0 Yes 20mg QD Take 20 mg Me thodi (BUSPAR) 10 7-[address] MG tablet 15:51: nightly. Hosp soren 25 l acetaminoph 0 Yes 1000mg Q.5D Take 1,000 Methodi en 7-[address] (TYLENOL) 15:51: mouth 2 Hospi ta 500 MG 25 (two) l tablet times a day as needed for headaches. albuterol 0 Yes 1{puff} Q4H Inhale 1 M ethodi [...] Hospita tablet 25 daily. l nystatin-tr Yes [id number] Apply to [facility] iamcinolone 11-25 area(s) 3 ity of cream 00:00: (three) [place] 00 times Medical daily. Branch emtricitabi Yes [id number] Take one [facility] ne-tenofovi 11-25 po daily ity of r alafen 00:00: [place] (DESCOVY) 00 Medical tablet Branch budesonide- 2020- No 1{puff} QD Inhale 1 Methodi formoteroL 625 06-[address] (SYMBICORT) 19:37: 00:00 morning. H ospita 160-4.5 02 :00 l mcg/actuati on inhaler hydrALAZINE 2020- No [id number] 50mg Q.[id number] Take 1 UT (Apresoline 10-31 [id number] tablet (50 Health ) 50 MG 00:00: 04:59 3D mg total) tablet 00 :00 by mouth 3 (three) times a day. hydrALAZINE 2020- No [id number] 50mg Q.[id number] Take 1 UT (Apresoline 10-31 [id number] tablet (50 Health ) 50 MG 00:00: 04:59 3D mg total) tablet 00 :00 by mouth 3 (three) times a day. hydrALAZINE 2020- No [id number] 50mg Q.[id number] Take 1 UT (Apresoline 10-31 [id number] tablet (50 Health ) 50 MG 00:00: 04:59 3D mg total) tablet 00 :00 by mouth 3 (three) times a day. hydrALAZINE 0 2020- No [id number] 50mg Q.[id number] Take 1 UT (Apresoline 10-31 [id number] tablet (50 Health ) 50 MG 00:00: 04:59 3D mg total) tablet 00 :00 by mouth 3 (three) times a day. Breztri 2020-0 Yes UT Aerosphere 10-29 Health 160-9-4.8 00:00: MCG/ACT 00 aerosol Breztri 2020-0 Yes UT Aerosphere 10-29 Health 160-9-4.8 00:00: MCG/ACT 00 aerosol Breztri 2020-0 Yes UT Aerosphere 10-29 Health 160-9-4.8 00:00: MCG/ACT 00 aerosol Breztri 2020-0 Yes UT Aerosphere 10-29 [facility] 160-9-4.8 00:00: MCG/ACT 00 aerosol albuterol 0 Yes UT (2.5 6-02 Health [...] 00 amiodarone 2020-0 2020- No UT (Pacerone) 5-31 07-26 Health 200 MG 00:00: 00:00 tablet 00 :00 lisinopril 2020-0 Yes UT 40 MG 5-30 Health tablet 00:00: 00 sertraline 2021-0 Yes 200mg 200 mg. UT (Zoloft) 5-30 [...] MG 5-30 Health tablet 00:00: 00 sertraline Yes 200mg 200 mg. UT (Zoloft) 5-30 Health 100 MG 00:00: tablet 00 mupirocin Yes UT (Bactroban) 528 Health 2 % 00:00: ointment 00 mupirocin Yes UT (Bactroban) 10-17 Health 2 % 00:00: ointment 00 mupirocin 0 Yes UT (Bactroban) 528 Health 2 % 00:00: ointment 00 mupirocin 0 Yes UT (Bactroban) 528 Health 2 % 00:00: ointment 00 nystatin 2020- No [id number] Q.25D Take 5 mL Methodi (MYCOSTATIN 10-06 [...] times a day for 10 days. LORazepam Yes UT (Ativan) 2 5-14 Health [...] 00:00: 40 MG EC 00 tablet pantoprazol 2020-0 Yes UT e 4-20 Health (ProtoNix) 00:00: 40 MG EC 00 tablet pantoprazol 2020-0 Yes UT e 4-20 Health [...] Q.5D Take 40 mg Methodi e (NexIUM) 4-12 04-[address] 40 MG 13:54: 00:00 (two) Hospita capsule 18 :00 times a l day. LORAZepam 2020- No 2mg QD Take 2 mg Me thodi (ATIVAN) 2 4-12 04-[address] MG tablet 13:51: 00:00 [...] 4-10 (Same as: l 14:00: Zoloft) Marty Sertraline No Notes: Memor ia 4-10 (Same as: l 14:00: Zoloft) [place] pantoprazol No Notes: Caesar lisa e 4-10 Tablet l 14:00: should not [place] 00 be chewed or crushed. (Same as: Protonix) Amiodarone No Notes: Memor ia 4-10 (Same as: l 14:00: Cordarone) [place] 00 Amlodipine No Notes: Memor ia 4-10 (Same as: l 14:00: Norvasc) Marty 00 emtricitabi No Notes: Caesar lisa ne 200 MG / 4-10 (Same as: l tenofovir 14:00: Descovy) Herm ariel alafenamide 00 Non-formul 25 MG Oral nancy Tablet [Descovy] Sertraline No Notes: Memor ia 4-10 (Same as: l 14:00: Zoloft) [place] pantoprazol No Notes: Caesar lisa e 4-10 Tablet l 14:00: should not [place] 00 be chewed or crushed. (Same as: Protonix) Amiodarone No Notes: Memor ia 4-10 (Same as: l 14:00: Cordarone) [place] 00 Amlodipine No Notes: Memor ia 4-10 (Same as: l 14:00: Norvasc) Marty emtricitabi No Notes: Caesar lisa ne 200 MG / 4-10 (Same as: l tenofovir 14:00: Descovy) Herm ariel alafenamide 00 Non-formul 25 MG Oral nancy Tablet [Descovy] Sertraline No Notes: Memor ia 4-10 (Same as: l 14:00: Zoloft) [place] 00 pantoprazol No Notes: Caesar lisa e 4-10 Tablet l 14:00: should not [place] 00 be chewed or crushed. (Same as: Protonix) Amiodarone No Notes: Memor ia 4-10 (Same as: l 14:00: Cordarone) [place] Amlodipine No Notes: Memor ia 4-10 (Same as: l 14:00: Norvasc) Marty emtricitabi No Notes: Caesar lisa ne 200 MG / 4-10 (Same as: l tenofovir 14:00: Descovy) Herm ariel alafenamide 00 Non-formul 25 MG Oral nancy Tablet [Descovy] Sertraline No Notes: Memor ia 4-10 (Same as: l 14:00: Zoloft) [place] pantoprazol No Notes: Caesar lisa e 4-10 [...] e 4-10 Tablet l 14:00: should not [place] 00 be chewed or crushed. (Same as: Protonix) Amiodarone No Notes: Memor ia 4-10 (Same as: l 14:00: Cordarone) [place] 00 Amlodipine No Notes: Memor ia 4-10 (Same as: l 14:00: Norvasc) [place] emtricitabi No Notes: Caesar lisa ne 200 MG / 4-10 (Same as: l tenofovir 14:00: Descovy) Herm ariel alafenamide 00 Non-formul 25 MG Oral nancy Tablet [Descovy] Sertraline No Notes: Memor ia 4-10 (Same as: l 14:00: Zoloft) pantoprazol No Notes: Caesar lisa e 4-10 Tablet l 14:00: should not [place] 00 be chewed or crushed. (Same as: [...] Memoria 4-10 Same as: l 02:00: Eliquis [place] Hydralazine No Notes: Caesar lisa Hydrochlori 4-10 (Same as: l de 50 MG 02:00: Apresoline Her mitchell Oral Tablet 00 ) May interfere w/enteral feedings Take With Food Sucralfate No Notes: May M emoria 4-10 interfere l 02:00: w/enteral [place] 00 feeds - Take 1 hr before or 2 hr after antacids, dairy pdt, meals & minerals - On empty stomach. For patients unable to swallow tablet, dissolve in 10mL - 30mL of water or juice and stir before giving. (Same As: Carafate) Saline No Notes: Memoria Flush 0.9% 4-10 (Same as: l 02:00: BD [place] 00 Posiflush) Eliquis No Notes: Memoria 4-10 [...] not exceed l #3 00:12: 4gm/day of [place] acetaminop hen. (Same as: Tylenol with Codeine [...] not exceed l #3 00:12: 4gm/day of [place] acetaminop hen. (Same as: Tylenol with Codeine [...] tartrate 4-09 tab, l 22:00: Route: PO, [place] 00 Drug form: TAB, BID, Dosing Weight 97.273, kg, Start date: 08/29/20 17:00:00 CDT, Duration: 30 day, Stop date: 09/28/20 9:00:00 CDT Raltegravir 2020-0 No 400 mg, 1 M emoria 400 MG Oral 4- tab, l Tablet 22:00: Route: PO, Skylar [ISENTRESS] Drug form: TAB, BID, Dosing Weight 97.273, kg, Start date: 08/29/20 17:00:00 CDT, Duration: 30 day, Stop date: 09/28/20 9:00:00 CDT, 0 Buspirone 2020-0 No Notes: Memori a 08-29 (Same As: l 22:00: BuSpar) Lisinopril 2020-0 No 40 mg, 1 Mem oria - tab, l 22:00: Route: PO, [place] 00 Drug form: TAB, BID, Dosing Weight 97.273, kg, Start date: 08/29/20 17:00:00 CDT, Duration: 30 day, Stop date: 09/28/20 9:00:00 CDT metoprolol 1-0 No 100 mg, 1 Me moria tartrate 4-09 tab, l 22:00: Route: PO, [place] 00 Drug form: TAB, BID, Dosing Weight [...] Oral 4- tab, l Tablet 22:00: Route: POSkylar nn [ISENTRESS] Drug form: TAB, BID, Dosing Weight 97.273, kg, Start date: 08/29/20 17:00:00 CDT, Duration: 30 day, Stop date: 09/28/20 9:00:00 CDT, 0 Buspirone 2020-0 No Notes: Memori a 08-29 (Same As: l 22:00: BuSpar) Lisinopril 1-0 No 40 mg, 1 Mem oria -09 tab, l 22:00: Route: PO, [place] 00 Drug form: TAB, BID, Dosing Weight 97.273, kg, Start date: 08/29/20 17:00:00 CDT, Duration: 30 day, Stop date: 09/28/20 9:00:00 CDT metoprolol 2021-0 No 100 mg, 1 Me moria tartrate -09 tab, l 22:00: Route: PO, [place] 00 Drug form: TAB, BID, Dosing Weight [...] oria 4-09 tab, l 22:00: Route: PO, [place] Drug form: TAB, BID, Dosing Weight 97.273, [...] 0 Buspirone 1-0 No Notes: Memori a - (Same As: l 22:00: BuSpar) Lisinopril 1-0 No 40 mg, 1 Mem oria 4-09 tab, l 22:00: Route: PO, [place] 00 Drug form: TAB, BID, Dosing Weight [...] Notes: Memoria 4-09 (Same l 17:07: as:MORPhin [place] 00 e Sulfate) Morphine No Notes: Memoria 4-09 (Same l 17:07: as:MORPhin [place] 00 e Sulfate) Morphine No Notes: Memoria 4-09 (Same l 17:07: as:MORPhin [place] 00 e Sulfate) Morphine No Notes: Memoria 4-09 (Same l 17:07: as:MORPhin [place] 00 e Sulfate) Morphine No Notes: Memoria 4-09 (Same l 17:07: as:MORPhin [place] 00 e Sulfate) Morphine No Notes: Memoria 4-09 (Same l 17:07: as:MORPhin [place] 00 e Sulfate) Morphine No Notes: Memoria 4-09 (Same l 17:07: as:MORPhin [place] 00 e Sulfate) buPROPion 2020-0 No 150 mg, 1 Mem [...] 30 tab, 0 coated Refill(s), tablet Pharmacy: [facility], 162.56, cm, 08/29/20 5:30:00 CDT, Height, 97.273, kg, 08/29/20 5:30:00 CDT, Weight pantoprazol 2020-0 Yes 40 mg = 1 M emoria e 40 mg 4-09 tab, PO, l oral 15:27: Daily, # Marty enteric 00 30 tab, 0 coated Refill(s), tablet Pharmacy: [facility] 149, 162.56, cm, 08/29/20 5:30:00 CDT, Height, 97.273, kg, 08/29/20 5:30:00 CDT, Weight pantoprazol 2021-0 Yes 40 mg = 1 M emoria e 40 mg 4-09 tab, PO, l oral 15:27: Daily, # Marty enteric 00 30 tab, 0 coated Refill(s), tablet Pharmacy: [facility] 149, 162.56, cm, 08/29/20 5:30:00 CDT, Height, 97.273, kg, 08/29/20 5:30:00 CDT, Weight pantoprazol 2021-0 Yes 40 mg = 1 M emoria e 40 mg 4-09 tab, PO, l oral 15:27: Daily, # Marty enteric 00 30 tab, 0 coated Refill(s), tablet Pharmacy: [facility] 149, 162.56, cm, 08/29/20 5:30:00 CDT, Height, 97.273, kg, 08/29/20 5:30:00 CDT, Weight pantoprazol 2021-0 Yes 40 mg = 1 M emoria e 40 mg 4-09 tab, PO, l oral 15:27: Daily, # [place] enteric 00 30 tab, 0 coated Refill(s), tablet Pharmacy: [facility] 149, 162.56, cm, 08/29/20 5:30:00 CDT, Height, 97.273, kg, 08/29/20 5:30:00 CDT, Weight pantoprazol 2021-0 Yes 40 mg = 1 M emoria e 40 mg 4-09 tab, PO, l oral 15:27: Daily, # [place] enteric 00 30 tab, 0 coated Refill(s), tablet Pharmacy: [facility] 149, 162.56, cm, 08/29/20 5:30:00 CDT, Height, 97.273, kg, 08/29/20 5:30:00 CDT, Weight pantoprazol 2021-0 Yes 40 mg = 1 M emoria e 40 mg 4-09 tab, PO, l oral 15:27: Daily, # [place] enteric 00 30 tab, 0 coated Refill(s), tablet Pharmacy: [facility] 149, 162.56, cm, 08/29/20 5:30:00 [...] Skylar nn 00 tab, 0 Refill(s), Pharmacy: [facility] 149, 162.56, cm, 08/29/20 5:30:00 [...] Skylar nn 00 tab, 0 Refill(s), Pharmacy: [facility] 149, 162.56, cm, 08/29/20 5:30:00 CDT, Height, 97.273, kg, 08/29/20 5:30:00 CDT, Weight pantoprazol 2020-0 No 40 mg = 1 M emoria e 40 mg 4-09 tab, PO, l oral 15:26: Daily, # [place] enteric 00 30 tab, 0 coated Refill(s) tablet sucralfate 2020-0 Yes 1 gm = 1 Mem oria 1 g oral 4-09 tab, PO, l tablet 15:26: Q12H, # 28 Skylar nn 00 tab, 0 Refill(s), Pharmacy: [facility] 149, 162.56, cm, 08/29/20 5:30:00 [...] Skylar nn 00 tab, 0 Refill(s), Pharmacy: [facility] 149, 162.56, cm, 08/29/20 5:30:00 CDT, Height, 97.273, kg, 08/29/20 5:30:00 CDT, Weight pantoprazol 2020-0 No 40 mg = 1 M emoria e 40 mg 4-09 tab, PO, l oral 15:26: Daily, # [place] enteric 00 30 tab, 0 coated Refill(s) tablet sucralfate 2020-0 Yes 1 gm = 1 Mem oria 1 g oral 4-09 tab, PO, l tablet 15:26: Q12H, # 28 Skylar nn 00 tab, 0 Refill(s), Pharmacy: [place] [id number], 162.56, cm, 08/29/20 5:30:00 CDT, Height, 97.273, [...] Skylar nn 00 tab, 0 Refill(s), Pharmacy: [facility] 149, 162.56, cm, 08/29/20 5:30:00 CDT, Height, 97.273, kg, 08/29/20 5:30:00 CDT, Weight pantoprazol 2020-0 No 40 mg = 1 M emoria e 40 mg 4-09 tab, PO, l oral 15:26: Daily, # [place] enteric 00 30 tab, 0 coated Refill(s) tablet sucralfate 2020-0 Yes 1 gm = 1 Mem oria 1 g oral 4-09 tab, PO, l tablet 15:26: Q12H, # 28 Skylar nn 00 tab, 0 Refill(s), Pharmacy: [facility] 149, 162.56, cm, 08/29/20 5:30:00 CDT, Height, 97.273, kg, 08/29/20 5:30:00 CDT, Weight Saline No Notes: Memoria Flush 0.9% 4-09 (Same as: l 15:25: BD [place] 00 Posiflush) Lorazepam No Notes: Memori a 4-09 (Same as: l 15:25: Ativan) [place] 00 Lorazepam No Notes: Memori a 4-09 (Same as: l 15:25: Ativan) Marty Saline No Notes: Memoria Flush 0.9% 4-09 (Same as: l 15:25: BD [place] 00 Posiflush) Lorazepam No Notes: Memori a 4-09 (Same as: l 15:25: Ativan) [place] Saline No Notes: Memoria Flush 0.9% 4-09 (Same as: l 15:25: BD [place] 00 Posiflush) Lorazepam No Notes: Memori a 4-09 (Same as: l 15:25: Ativan) [place] 00 Saline No Notes: Memoria Flush 0.9% 4-09 (Same as: l 15:25: BD [place] 00 Posiflush) Lorazepam No Notes: Memori a 4-09 (Same as: l 15:25: Ativan) Marty Saline No Notes: Memoria Flush 0.9% 4-09 (Same as: l 15:25: BD [place] 00 Posiflush) Lorazepam No Notes: Memori a 4-09 (Same as: l 15:25: Ativan) [place] Saline No Notes: Memoria Flush 0.9% 4-09 (Same as: l 15:25: BD [place] 00 Posiflush) Lorazepam No Notes: Memori a 4-09 (Same as: l 15:25: Ativan) [place] Saline No Notes: Memoria Flush 0.9% 08-29 (Same as: l 15:25: BD Marty Posiflush) Isuprel HCl No Route: IV, Memoria (ANES) 0.2 08-29 Drug form: l mg + 15:00: INJ, Marty Dosing Weight 97.3, kg, Start date: 08/29/20 10:00:00 CDT, Stop date: 08/29/20 11:00:00 CDT Isuprel HCl No Route: IV, Memoria (ANES) 0.2 08-29 Drug form: l mg + 15:00: INJ, [place] 00 Dosing Weight 97.3, kg, Start date: 08/29/20 10:00:00 CDT, Stop date: 08/29/20 11:00:00 CDT Isuprel HCl No Route: IV, Memoria (ANES) 0.2 08-29 Drug form: l mg + 15:00: INJ, [place] 00 Dosing Weight 97.3, kg, Start date: 08/29/20 10:00:00 CDT, Stop date: 08/29/20 11:00:00 CDT Isuprel HCl No Route: IV, Memoria (ANES) 0.2 08-29 Drug form: l mg + 15:00: INJ, [place] Dosing Weight 97.3, kg, Start date: 08/29/20 10:00:00 CDT, Stop date: 08/29/20 11:00:00 CDT Isuprel HCl No Route: IV, Memoria (ANES) 0.2 08-29 Drug form: l mg + 15:00: INJ, Marty 00 Dosing Weight 97.3, kg, Start date: 08/29/20 10:00:00 CDT, Stop date: 08/29/20 11:00:00 CDT Isuprel HCl No Route: IV, Memoria (ANES) 0.2 08-29 Drug form: l mg + 15:00: INJ, [place] Dosing Weight 97.3, kg, Start date: 08/29/20 [...] 08-29 Drug form: l 14:18: INJ, ONCE, [place] 00 Stop date: 08/29/20 9:18:00 CDT heparin 2020-0 No Route: IV, Caesar lisa (ANES) 08-29 Drug form: l 14:18: INJ, ONCE, [place] 00 Stop date: 08/29/20 9:18:00 CDT heparin 2020-0 No Route: IV, Caesar lisa (ANES) 08-29 Drug form: l 14:18: INJ, ONCE, Marty 00 Stop date: 08/29/20 9:18:00 CDT Labetalol 2020-0 No 10 mg, Memori a 08-29 Route: l 14:01: IVP, [place] 00 Q5Min, Dosing Weight 97.273, kg, PRN Elevated BP, Start date: 08/29/20 9:01:00 CDT, Duration: 5 doses or times, Stop date: Limited # of times Acetaminoph 2020-0 No 1,000 mg, M emoria en 08-29 Route: PO, l 14:01: Drug form: [place] 00 TAB, ONCE, Dosing Weight 97.273, kg, [...] oria ne 08-29 Route: l 14:01: IVP, [place] 00 Q5Min, Dosing Weight 97.273, kg, PRN Pain Score 7-10, Start date: 08/29/20 9:01:00 CDT, Duration: 4 doses or times, Stop date: Limited # of times Flumazenil 2020-0 No 0.2 mg, Caesar lisa 08-29 Route: l 14:01: IVP, PRN, [place] 00 Dosing Weight 97.273, kg, PRN Benzodiaze pine Reversal, Initial dose, Start date: 08/29/20 9:01:00 CDT, Duration: 30 day, Stop date: 09/28/20 9:00:00 CDT Naloxone 1-0 No 0.4 mg, Memori a 08-29 Route: l 14:01: IVP, [place] 00 Q2MIN, Dosing Weight 97.273, kg, PRN Narcotic Reversal, Start date: 08/29/20 9:01:00 CDT, Duration: 8 doses or times, Stop date: Limited # of times Ondansetron 1-0 No 4 mg, Memor ia 08-29 Route: l 14:01: IVP, ONCE, [place] 00 Dosing Weight 97.273, kg, PRN Nausea & Vomiting, Start date: 08/29/20 9:01:00 CDT Labetalol 1-0 No 10 mg, Memori a 08-29 Route: l 14:01: IVP, [place] 00 Q5Min, Dosing Weight 97.273, kg, PRN [...] oria ne 08-29 Route: l 14:01: IVP, [place] 00 Q5Min, Dosing Weight 97.273, kg, PRN Pain Score 7-10, Start date: 08/29/20 9:01:00 CDT, Duration: 4 doses or times, Stop date: Limited # of times Flumazenil 2020-0 No 0.2 mg, Caesar lisa 08-29 Route: l 14:01: IVP, PRN, [place] 00 Dosing Weight 97.273, kg, PRN Benzodiaze [...] Memori a 08-29 Route: l 14:01: IVP, [place] 00 Q5Min, Dosing Weight 97.273, kg, PRN Elevated BP, Start date: 08/29/20 9:01:00 CDT, Duration: 5 doses or times, Stop date: Limited # of times Acetaminoph 1-0 No 1,000 mg, M emoria en 08-29 Route: PO, l 14:01: Drug form: [place] 00 TAB, ONCE, Dosing Weight 97.273, kg, [...] lisa 08-29 Route: l 14:01: IVP, PRN, Big Arm Dosing Weight 97.273, kg, PRN Benzodiaze pine [...] Memori a 08-29 Route: l 14:01: IVP, [place] 00 Q5Min, Dosing Weight 97.273, kg, PRN Elevated BP, Start date: 08/29/20 9:01:00 CDT, Duration: 5 doses or times, Stop date: Limited # of times Acetaminoph 1-0 No 1,000 mg, M emoria en 08-29 Route: PO, l 14:01: Drug form: Big Arm 00 TAB, ONCE, Dosing Weight 97.273, kg, [...] oria ne 08-29 Route: l 14:01: IVP, [place] 00 Q5Min, Dosing Weight 97.273, kg, PRN [...] Flumazenil 1-0 No 0.2 mg, Caesar lisa 4 Route: l 14:01: IVP, PRN, [place] 00 Dosing Weight 97.273, kg, PRN Benzodiaze pine Reversal, Initial dose, Start date: 08/29/20 9:01:00 CDT, Duration: 30 day, Stop date: 09/28/20 9:00:00 CDT Ondansetron 1-0 No 4 mg, Memor ia - Route: l 14:01: IVP, ONCE, Marty 00 [...] Ondansetron 2021-0 No 4 mg, Memor ia 4- Route: l 14:01: IVP, ONCE, Big [place] 00 Dosing Weight 97.273, kg, PRN Nausea & Vomiting, Start date: 08/29/20 9:01:00 CDT Labetalol 2021-0 No 10 mg, Memori a 4- Route: l 14:01: IVP, Marty 00 Q5Min, [...] oria ne 08-29 Route: l 14:01: IVP, [place] 00 Q5Min, Dosing Weight 97.273, kg, PRN Pain Score 7-10, Start date: 08/29/20 9:01:00 CDT, Duration: 4 doses or times, Stop date: Limited # of times Flumazenil 2020-0 No 0.2 mg, Caesar lisa 08-29 Route: l 14:01: IVP, PRN, [place] 00 Dosing Weight 97.273, kg, PRN Benzodiaze pine Reversal, Initial dose, Start date: 08/29/20 9:01:00 CDT, Duration: 30 day, Stop date: 09/28/20 9:00:00 CDT Naloxone 1-0 No 0.4 mg, Memori a 08-29 Route: l 14:01: IVP, [place] 00 Q2MIN, Dosing Weight 97.273, kg, PRN [...] Memori a 08-29 Route: l 14:01: IVP, [place] 00 Q5Min, Dosing Weight 97.273, kg, PRN Elevated BP, Start date: 08/29/20 9:01:00 CDT, Duration: 5 doses or times, Stop date: Limited # of times Acetaminoph 1-0 No 1,000 mg, M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 506438 Methodi 00:00:00 00:00:[address] 3.430.2.7 Hospit a .3.770364 l .8 2020-06-23 2020-06-23 Travel 1.2.840.1 1.2.660.471 2490 747554 Methodi 00:00:00 00:00:[address] 3.430.2.7 0.2.7.3.698 Ho spita .3.681177 084.8 l .8 2020-06-09 2020-06-09 Telephone Yazmin, 1.2.840.1 [id number] Methodi 00:00:00 00:00:[address] 3.430.2.7 Hospit a .3.417309 l .8 2020-06-06 2020-06-06 Refill Quinn, 1.2.840.1 [id number] 152906 2138 Methodi 00:00:00 00:00:00 Eh RachelChelsie 58226.1.[address] 3.430.2.7 Hospit a .3.542522 l .8 2020-06-03 2020-06-03 Telephone Yazmin, 1.2.840.4 [id number] Methodi 00:00:00 00:00:[address] 3.430.2.7 Hospit a .3.250233 l .8 2020-06-02 2020-06-02 Telephone Yazmin, 1.2.840.4 [id number] Methodi 00:00:00 00:00:[address] 3.430.2.7 Hospit a .3.189168 l .8 2020-05-13 2020-05-13 Orders Provider, 1.2.840.1 [id number] 2099 604050 Methodi 00:00:00 00:00:00 Only Historical 77623.1.1 108 s t 3.430.2.7 Hospit a .3.580323 l .8 2020-05-09 2020-05-09 Telephone Carol Ann, 1.2.840.1 [id number] Methodi 00:00:00 00:00:00 Sarai CorbinChelsie 34561.1.1 660 s t 3.430.2.7 Hospit a .3.050377 l .8 2020-05-09 2020-05-09 Telephone Yazmin 1.2.840.3 [id number] Methodi 00:00:00 00:00:[address] 3.430.2.7 Hospit a .3.062951 l .8 2020-05-08 2020-05-08 Telephone [facility], 1.2.840.8 [id number] Methodi 00:00:00 00:00:[address] 3.430.2.7 Hospit a .3.757041 l .8 2020-05-07 2020-05-07 Telephone [facility], 1.2.840.0 [id number] 21 [id number] Methodi 00:00:00 00:00:[address] 3.430.2.7 Hospit a .3.462356 l .8 2020-05-05 2020-05-05 [facility], 1.2.840.6 [id number] Methodi 00:00:00 00:00:[address] 3.430.2.7 Hospit a .3.769422 l .8 2020-04-25 2020-05-03 [facility], 1.2.840.1 [id number] 2100 153904 Methodi 17:33:00 13:39:00 Encounter Ray [address]9431.1.[address] 3.430.2.7 Hospit a .3.247353 l .8 2020-04-28 2020-04-28 Anesthesia Tomas Pinon 1.2.840.1 [id number] Methodi 13:38:00 19:40:00 Event Justine Catalan 31944.1.[address] 3.430.2.7 Hospit a .3.352949 l .8 2020-04-28 2020-04-28 [facility] 1.2.840.1 [id number] 12949 57718 Methodi 13:00:00 17:10:[address] 3.430.2.7 Hospit a .3.831973 l .8 2020-04-25 2020-04-25 [facility], 1.2.840.1 [id number] 2100 795520 Methodi 10:00:00 17:32:00 Encounter Ray [address]227.1.[address] 3.430.2.7 Hospit a .3.392538 l .8 2020-04-25 2020-04-25 [facility], 1.2.840.1 [id number] 53415 80648 Methodi 11:43:50 13:44:26 Visit Ray 93921.1.[address] 3.430.2.7 Hospit a .3.506608 l .8 2020-04-25 2020-04-25 Travel 1.2.840.1 1.2.514.730 8654 975345 Methodi 00:00:00 00:00:[address] 3.430.2.7 0.2.7.3.698 Ho spita .3.487609 084.8 l .8 2020-04-24 2020-04-24 Prep for [facility], 1.2.840.1 [id number] 2 [id number] Methodi 00:00:00 00:00:00 Surgery Sarai Lieberman 33279.1.1 524 s t 3.430.2.7 Hospit a .3.261222 l .8 2020-04-22 2020-04-22 Telephone [facility], 1.2.840.1 [id number] 008 [id number] Methodi 00:00:00 00:00:[address] 3.430.2.7 Hospit a .3.313577 l .8 2020-04-22 2020-04-22 Travel 1.2.840.1 1.2.953.661 3099 506148 Methodi 00:00:00 00:00:[address] 3.430.2.7 0.2.7.3.698 Ho spita .3.950914 084.8 l .8 2020-04-21 2020-04-21 Emergency , Geraldo 1.2.840.1 [id number] 2 [id number] Methodi 06:51:00 10:43:[address] 3.430.2.7 Hospit a .3.352765 l .8 2020-04-21 2020-04-21 Orders Meisenbach, 1.2.840.1 [id number] 21 [id number] Methodi 00:00:00 00:00:00 Only Sarai Corbin. 52323.1.1 550 s t 3.430.2.7 Hospit a .3.022219 l .8 2020-04-16 2020-04-16 Telephone [facility], 1.2.840.1 [id number] Methodi 00:00:00 00:00:00 Sarai Corbin. 02216.1.1 673 s t 3.430.2.7 Hospit a .3.842066 l .8 2020-04-10 2020-04-10 Telephone Yazmin, 1.2.840.7 [id number] Methodi 00:00:00 00:00:[address] 3.430.2.7 Hospit a .3.702485 l .8 2020-04-07 2020-04-07 Telephone Nahum, 1.2.840.1 [id number] 2099 188774 Methodi 00:00:00 00:00:[address] 3.430.2.7 Hospit a .3.630519 l .8 2020-04-01 2020-04-01 Orders Provider, 1.2.840.1 [id number] 2100 085149 Methodi 00:00:00 00:00:00 Only Historical 10924.1.1 049 s t 3.430.2.7 Hospit a .3.505492 l .8 2020-03-31 2020-03-31 Travel 1.2.840.1 1.2.127.882 5513 736508 Methodi 00:00:00 00:00:[address] 3.430.2.7 0.2.7.3.698 Ho spita .3.084346 084.8 l .8 2020-03-27 2020-03-27 Telephone Ramiro Mitchell 1.2.840.1 [id number] 21 [id number] Methodi 00:00:00 00:00:[address] 3.430.2.7 Hospit a .3.718257 l .8 Results Test Description Test Time [...] Rotavirus PCR (test code = Not Detected 3316998) Salmonella PCR (test code = 4783) Not [...] PCR (test code = Not Detected 7124) [facility] Jq9142-80-58 19:17:40EXAMINATION: XR ABDOMEN 1 VW CLINICAL HISTORY: [...] clips are noted.[id number] [place] [facility] Gcjo8975-65-23 19:41:02EXAMINATION: OR FL < 1 HOUR C-arm fluoroscopy was requested in OR. Location: [facility] 6 Procedure: EGD WITH BOTOX INJECTION INTO [...] arm fluoroscopy was requested in OR. Location: [facility] OR [facility] 6 Procedure: EGD WITH BOTOX INJECTION INTO THE PYLORUS, ENDOFLIP, ON TABLE ESOPHAGRAM (N/A ) Start: 1140 End:1222 FluoroTime: .19sec Dose: 7.8mGy Tech: A.BIMPRESSION:Intraoperative fluoroscopic images. Radiologist was not present during the examination.Separate operative report will be issued by the physician performingthe procedure.[id number] request 2020-09-08 19:30:47 Test Item Value Reference Range Interpretation Comments Case number (test [id number] code = 9963479) Surgical pathology See link below for PDF report (test code = Lab Report 2255) Result status (test This is Supplemental code = [id number]) [id number] [facility] Vw Qlbispgb4420-04-02 23:06:58EXAMINATION: XR CHEST 1 VW PORTABLE HISTORY: [...] enlarged, similar to prior. Bilateral shoulder arthroplasties. [id number] Interface, Radiology Results 09/06/2020 6:09PM CDT EXAMINATION: [...] silhouette is enlarged, similar to prior.Bilateral shoulder arthroplasties.[facility]-[id number] TpzhiahiWmyefl9833-73-81 16:47:23Kirit Flood MD 09/05/2020 11:[address]: [...] RSI: Yes Number of Attempts at Approach: [facility] dwtd1511-74-10 23:21:56 Test Item Value Reference Range Interpretation [...] T wave abnormality, consider anterior ischemia-Abnormal ECG- [facility] Center[facility]OVID[facility] qualitative QRK6229-25-45 22:48:41 Test Item Value Reference Range Interpretation Comments Interpretation (test Negative results do code = 0078992) not preclude 2019-nCoV infection and should not be used as the sole basis for treatment or other patient management decisions. Negative results must be combined with clinical observations, patient history, and epidemiological information. COVID-19 qualitative Not-Detected Not-Detected RT-PCR result (test code = 29553-2) COVID-19 qualitative See link below for C ase Number: RT-PCR (test code = PDF Lab Report [id number]) [facility]2021-04-09 16:31:00 Test Item Value Reference Range Interpretation Comments POC Activated Clotting Time (test code 153 s = POC Activated Clotting Time) [facility]IsvuhzjDHNRQMBTEW5663-49-44 16:31:00 Test Item Value Reference Range Interpretation Comments POC Activated Clotting Time (test code 153 s = POC Activated Clotting Time) [facility]bergUgvleirQIWXAZRUXH7521-19-51 16:31:00 Test Item Value Reference Range Interpretation Comments POC Activated Clotting Time (test code 153 s = POC Activated Clotting Time) [facility]bergGbzwjvtXGJIJHKJPH3841-39-75 16:31:00 Test Item Value Reference Range Interpretation Comments POC Activated Clotting Time (test code 153 s = POC Activated Clotting Time) [facility]bergUzyxmtvDVVBSBRJSM3673-00-35 16:31:00 Test Item Value Reference Range Interpretation Comments POC Activated Clotting Time (test code 153 s = POC Activated Clotting Time) [facility]bergZzugvbsHYDNHROPTT4493-26-49 16:31:00 Test Item Value Reference Range Interpretation Comments POC Activated Clotting Time (test code 153 s = POC Activated Clotting Time) [place] 918691-04-09 16:31:00 Test Item Value Reference Range Interpretation Comments POC Activated Clotting Time (test code 153 s = POC Activated Clotting Time) [facility]bergZqidhfmIBBVJSVHJV3322-50-88 14:37:00 Test Item Value Reference Range Interpretation Comments POC Activated Clotting Time (test code 454 s = POC Activated Clotting Time) [facility]bergBatfwwjKJQWVBZGTI5161-54-69 14:37:00 Test Item Value Reference Range Interpretation Comments POC Activated Clotting Time (test code 454 s = POC Activated Clotting Time) [facility] KlebergDolslatGGCESEDBST0583-63-24 14:37:00 Test Item Value Reference Range Interpretation Comments POC Activated Clotting Time (test code 454 s = POC Activated Clotting Time) [facility]bergDddchmvGEGJSPFRVI3768-00-96 14:37:00 Test Item Value Reference Range Interpretation Comments POC Activated Clotting Time (test code 454 s = POC Activated Clotting Time) [facility]bergLkvmbnpXGXPGFUZKI1498-59-51 14:37:00 Test Item Value Reference Range Interpretation Comments POC Activated Clotting Time (test code 454 s = POC Activated Clotting Time) [facility]bergHfaszteGMDQIRHNGT0807-22-33 14:37:00 Test Item Value Reference Range Interpretation Comments POC Activated Clotting Time (test code 454 s = POC Activated Clotting Time) [facility] KlebergTdnjyweWPRKPHXHDU1933-14-75 14:37:00 Test Item Value Reference Range Interpretation Comments POC Activated Clotting Time (test code 454 s = POC Activated Clotting Time) [facility] KlebergAyaccwjRKYVKMRQVO8393-37-27 14:13:00 Test Item Value Reference Range Interpretation Comments POC Activated Clotting Time (test code 354 s = POC Activated Clotting Time) [facility] KlebergMmcketwRAJOLMCLJD6989-56-68 14:13:00 Test Item Value Reference Range Interpretation Comments POC Activated Clotting Time (test code 354 s = POC Activated Clotting Time) [facility] KlebergQhrjnzySKPWEDEBAC7273-23-37 14:13:00 Test Item Value Reference Range Interpretation Comments POC Activated Clotting Time (test code 354 s = POC Activated Clotting Time) [facility] KlebergFvprxwvTLGQLRNGAI0571-95-90 14:13:00 Test Item Value Reference Range Interpretation Comments POC Activated Clotting Time (test code 354 s = POC Activated Clotting Time) [facility]ofvfqtMNTMENRCRA7649-82-07 14:13:00 Test Item Value Reference Range Interpretation Comments POC Activated Clotting Time (test code 354 s = POC Activated Clotting Time) [facility] HospitalAmgfxarSMAFGBEHRW5173-12-68 14:13:00 Test Item Value Reference Range Interpretation Comments POC Activated Clotting Time (test code 354 s = POC Activated Clotting Time) [facility] HospitalJxudvgcOLIUVCSQMG1155-63-50 14:13:00 Test Item Value Reference Range Interpretation Comments POC Activated Clotting Time (test code 354 s = POC Activated Clotting Time) [facility] UQDIHIX1756-44-97 10:37:00Negative (08/29/20 5:37 AM) [facility] SHTDJ1991-57-44 10:37:06682Ttqhnyzt HermannCHEM PANEL 2020-08-29 10:37:0028[facility]annCHE[facility] EUUWT8955-70-51 10:37:001.01[facility]annCHE[facility] NLKKD3535-81-37 10:37:69150Dmmfhusx HermannCHEM DALRM6426-27-71 10:37:003.8[facility]annCHEM GUARK1429-49-90 10:37:21482Bfkkajrw HermannCHEM SHYXK0163-02-57 10:37:0028[facility]annCHE[facility] URNJY6223-70-65 10:37:009.8 [facility] SNWXT0923-03-40 10:37:0011.8[facility]annCHEM PANEL 2020-08-29 10:37:0059[facility]annCHEM UFWWZ8596-21-93 10:37:002.9[facility] QilnzcqFEJNEVEMZH7453-01-82 10:37:006.8[facility] PeubwceCHSVIMFRUH9621-27-69 10:37:004.47[facility] HblppjjAJRVFZEILY2531-04-22 10:37:0010.6[facility] [place] BYSGCHYAET4929-19-01 10:37:0034.0[facility] XnzvexqIMDXCLKAER1224-48-33 10:37:00 76.1Memorial BivjnxsJNRXZKJIBY3849-66-25 10:37:00 Test Item Value Reference Range Interpretation Comments MCH (test code = MCH) 23.8 pg 27.0-31.0 Memorial YpvcxfdENQBNPENRG1013-60-31 10:37:0031.3[facility]annHEMATOLOGY 2020-08-29 10:37:0018.2[facility] StlvjydWSYCVFVFBI4127-51-36 10:37:52008Jwjxztye PnnwevzWARJAWZYXP6136-84-60 10:37:007.5[facility] PoiylysCLBSJOUVKF6475-70-44 10:37:00 Test Item Value Reference Range Interpretation Comments PT (test code = PT) 12.8 s 12.0-14.7 Memorial CybztegKFCGILWOWB5511-03-96 10:37:00 Test Item Value Reference Range Interpretation Comments INR (test code = INR) 0.97 1 0.85-1.17 Memorial PjgwscjXTUPXWAHGQ6254-19-35 10:37:00 Test Item Value Reference Range Interpretation Comments PTT (test code = PTT) 25.0 s 22.9-35.8 Memorial FysigjvLJXEJSBMZF5271-31-39 10:37:0070.5[facility]annHEMATOLOGY 2020-08-29 10:37:0018.8[facility] NwfejvvJBMYFTYTCY1597-31-72 10:37:009.5[facility] LuahmhhVUAXDXGFFX5730-92-82 10:37:000.9[facility] GfkzxgxVYSCQXEPKU2675-99-89 10:37:000.3[facility] DkvljonBVAQHLUJIH7586-37-98 10:37:004.8[facility] Marty JQQPKWHZCK5261-29-39 10:37:001.3[facility] IjiypdlZSKVKZJEQH3980-98-08 10:37:000.6 Memorial NehloqqOIZPBMVDAG0743-01-17 10:37:000.1[facility]annHEMATOLOGY 2020-08-29 10:37:001+ *ABN*(08/29/20 5:37 AM)[facility] SvtjiqoOMEDNXYYJA7942-91-00 10:37:00Not Detected (08/29/20 5:37 AM)[facility] HermannBLOOD BANK RESULTS 2020-08-29 10:37:00Negative (08/29/20 5:37 AM)[facility]annCHEM ARBLT1120-61-24 10:37:55541Tgndyqxk HermannCHEM XAOHX7026-81-67 10:37:0028[facility] HermannCHEM YIUSW0074-51-09 10:37:001.01[facility] HermannCHEM XCNLC8392-25-02 10:37:95138 [facility]annCHE[facility] AZHKL8612-85-00 10:37:003.8[facility] HermannCHEM PANEL 2020-08-29 10:37:98945Fnekejhc HermannCHEM DBNDX3800-65-45 10:37:0028[facility]annCHEM XKYYJ6685-58-29 10:37:009.8[facility]annCHEM QJWLM4293-64-96 10:37:0011.8[facility]annCHEM SMUBQ0025-54-23 10:37:0059[facility]annCHEM YKKQU1731-09-38 10:37:002.9[facility] BrkgjpqFOUHFMROCK7691-54-57 10:37:006.8 Memorial UolrqleZCJOCDTLYY2502-98-03 10:37:004.47[facility]annHEMATOLOGY 2020-08-29 10:37:0010.6[facility] OouruhbYUWOPYCAMZ4785-24-15 10:37:0034.0[facility] NweqrcrACFJWPTPUH7771-35-98 10:37:0076.1[facility] OvsqezzPBNBKKVMDL8424-29-87 10:37:00 Test Item Value Reference Range Interpretation Comments MCH (test code = MCH) 23.8 pg 27.0-31.0 Memorial RgabsgaYLWCXMGFQR5293-70-99 10:37:0031.3[facility]annHEMATOLOGY 2020-08-29 10:37:0018.2[facility] ZynmvrjWIPDJGKIHL5630-28-99 10:37:50816Wwvcuuaj SzerlsiSTVKXWFDRN8194-56-53 10:37:007.5[facility] KshueuoLMBIBFKROJ8360-31-08 10:37:00 Test Item Value Reference Range Interpretation Comments PT (test code = PT) 12.8 s 12.0-14.7 Memorial KtoebbyTMSERSRMAN9008-74-73 10:37:00 Test Item Value Reference Range Interpretation Comments INR (test code = INR) 0.97 1 0.85-1.17 Memorial YpwswzsFBDDLVXHXE9261-85-63 10:37:00 Test Item Value Reference Range Interpretation Comments PTT (test code = PTT) 25.0 s 22.9-35.8 Memorial DhopjagQPBGQDULUF0046-44-41 10:37:0070.5[facility]annHEMATOLOGY 2020-08-29 10:37:0018.8[facility] YoottvuDAINPEPYOJ8089-92-60 10:37:009.5[facility] PpuabazFVDBJZWWYW9406-57-84 10:37:000.9[facility] SscbqavPOPTXKFJEK1045-58-00 10:37:000.3[facility] JuxlgpxUXBRCDAJRW3285-83-40 10:37:004.8[facility] Marty FWQWYDIONX4497-24-51 10:37:001.3[facility] SmeencbGVINFQDMSV4990-28-63 10:37:000.6 [facility] QmtfeayIHMMKZEUCY2264-35-86 10:37:000.1[facility]annHEMATOLOGY 2020-08-29 10:37:001+ *ABN*(08/29/20 5:37 AM)[facility] GrhtxvtKZRUMBPNGO9495-82-01 10:37:00Not Detected (08/29/20 5:37 AM)[facility] HermannBLOOD BANK RESULTS 2020-08-29 10:37:00Negative (08/29/20 5:37 AM)[facility]annCHEM CPXFJ3815-82-75 10:37:78282Nbeluijs HermannCHEM ITHQN6609-75-39 10:37:0028[facility] HermannCHEM CBIML3643-02-39 10:37:001.01[facility] HermannCHEM EPMWP3644-85-51 10:37:98648 [facility]annCHE[facility] BBACT8075-58-07 10:37:003.8[facility] HermannCHEM PANEL 2020-08-29 10:37:03007Anoubyxk HermannCHEM VAUTB6311-67-14 10:37:0028[facility] HermannCHEM BLOJG2086-69-59 10:37:009.8[facility]annCHE[facility] PPICF9758-36-36 10:37:0011.8[facility]annCHEM BCQNY4401-76-31 10:37:0059[facility]annCHEM OLYMJ7008-80-08 10:37:002.9[facility] TqckpvkMPPNAWMHMR0247-02-76 10:37:006.8 [facility] KhiqozfVBBWQGUPRC7838-78-90 10:37:004.47[facility]annHEMATOLOGY 2020-08-29 10:37:0010.6[facility] NtqpurfGJGGGJZJAJ1564-87-83 10:37:0034.0[facility] ZhefosvDXWFHTVXTZ6484-18-35 10:37:0076.1[facility] OwbruxtNJQMKAISUD2176-45-56 10:37:00 Test Item Value Reference Range Interpretation Comments MCH (test code = MCH) 23.8 pg 27.0-31.0 [facility] UuzvlklUUTTUAJOFW0517-82-33 10:37:0031.3[facility]annHEMATOLOGY 2020-08-29 10:37:0018.2[facility] MbvrgoePOBOSNZKZD1131-12-90 10:37:02202Bfhfkzvt YzzcfjmAWYEXQLQEQ8583-94-28 10:37:007.5[facility] JxoeqvrQLSBBECLZS3357-45-56 10:37:00 Test Item Value Reference Range Interpretation Comments PT (test code = PT) 12.8 s 12.0-14.7 [facility] QklvyciQZJWGLRYIC2271-95-18 10:37:00 Test Item Value Reference Range Interpretation Comments INR (test code = INR) 0.97 1 0.85-1.17 [facility] OfkanrhZHLVCKNOGY6913-87-24 10:37:00 Test Item Value Reference Range Interpretation Comments PTT (test code = PTT) 25.0 s 22.9-35.8 [facility] IpstxraJOTMFEGJQW2990-35-42 10:37:0070.5[facility]annHEMATOLOGY 2020-08-29 10:37:0018.8[facility] BvhwqavKXMFWCHBVC4582-02-76 10:37:009.5[facility] BrqmlogQKKVACZTQT3208-77-92 10:37:000.9[facility] BqndplmLQAOIHECTI4277-93-30 10:37:000.3[facility] LsoedogDYIZQHMGEZ2658-30-10 10:37:004.8[facility] MRSFEISERA6691-53-01 10:37:001.3[facility] GgryyrqCCCAKYUBXR5031-82-78 10:37:000.6 [facility] HktsrvwDUZFCXCPBW9095-94-68 10:37:000.1[facility]annHEMATOLOGY 2020-08-29 10:37:001+ *ABN*(08/29/20 5:37 AM)[facility] ZdvamulUTKEVBWHUH5155-98-90 10:37:00Not Detected (08/29/20 5:37 AM)[facility]BL[facility] RESULTS 2020-08-29 10:37:00Negative (08/29/20 5:37 AM)[facility]annCHEM QYICR7013-90-79 10:37:12065Lplrqbpd HermannCHEM TLHXR2835-04-91 10:37:0028[facility]annCHEM VHLGX5378-30-87 10:37:001.01[facility]annCHEM TKCCM9187-45-46 10:37:13249 [facility]CHE[facility] GVZMV0946-43-05 10:37:003.8[facility]annCHEM PANEL 2020-08-29 10:37:34434Atvocrsg HermannCHEM UEMQJ4830-34-98 10:37:0028[facility]annCHEM KLFBK3028-21-05 10:37:009.8[facility]annCHEM OUDIT2701-38-64 10:37:0011.8[facility]annCHEM SISCP1253-64-14 10:37:0059[facility]annCHEM XYKXC7849-23-07 10:37:002.9[facility] KvfzuueMTPGOUYIPI4094-37-72 10:37:006.8 [facility] OjnofreRXRKCQQLCE9161-42-86 10:37:004.47[facility]annHEMATOLOGY 2020-08-29 10:37:0010.6[facility] HobxohcQOEKPEYBXX9719-21-51 10:37:0034.0[facility] RxoirlvYZKCLYNHWI1393-11-52 10:37:0076.1[facility] EssxhcdHUPOTSALDK1960-87-39 10:37:00 Test Item Value Reference Range Interpretation Comments MCH (test code = MCH) 23.8 pg 27.0-31.0 [facility] TbldmctWIXVJQZPRW7755-70-93 10:37:0031.3[facility]annHEMATOLOGY 2020-08-29 10:37:0018.2[facility] ZqyvbseKJVNXSWOLW4551-57-54 10:37:57527Amgbuhda LqdgckuWARWLFJXGW0871-34-40 10:37:007.5[facility] SzrgwugMYYQNNMLLW7811-75-03 10:37:00 Test Item Value Reference Range Interpretation Comments PT (test code = PT) 12.8 s 12.0-14.7 [facility] DqjiqliRCUTIEIHJJ4472-44-31 10:37:00 Test Item Value Reference Range Interpretation Comments INR (test code = INR) 0.97 1 0.85-1.17 [facility] GknllgjJYXSUBSCQV2292-12-35 10:37:00 Test Item Value Reference Range Interpretation Comments PTT (test code = PTT) 25.0 s 22.9-35.8 [facility] ExakxsaSJTSVBIHKY9459-40-52 10:37:0070.5[facility] HermannHEMATOLOGY 2020-08-29 10:37:0018.8[facility] IhurgzvGNTZVQBZKX7641-37-30 10:37:009.5[facility] YobrcdqUWEXSYKHWL4229-80-21 10:37:000.9[facility] YrcznbaCGXSGQEOEV4140-37-36 10:37:000.3[facility] VqwmnytOZNWEDERPN8577-35-48 10:37:004.8[facility] CQUJQEDXAI7894-28-41 10:37:001.3[facility] TzuzgejATOUNDMMKT6459-87-71 10:37:000.6 [facility] AdhpdnjEVOEFGTCBV6948-85-40 10:37:000.1[facility]annHEMATOLOGY 2020-08-29 10:37:001+ *ABN*(08/29/20 5:37 AM)[facility] BzdunbyTYQCLKBBGF7983-52-39 10:37:00Not Detected (08/29/20 5:37 AM)[facility] RESULTS 2020-08-29 10:37:00Negative (08/29/20 5:37 AM)[facility] HermannCHEM WRXUP8668-56-30 10:37:61718Jquetevh HermannCHEM UQYTN0437-96-23 10:37:0028[facility]annCHEM MTVXU0365-27-45 10:37:001.01[facility]annCHEM ZFPRN7354-43-87 10:37:40558 [facility]CHE[facility] HVEID8368-65-06 10:37:003.8[facility]annCHEM PANEL 2020-08-29 10:37:37665Bdukxiln HermannCHEM JRATJ4130-48-73 10:37:0028[facility]annCHEM YDOPS0943-12-25 10:37:009.8[facility]annCHEM DGMWN3084-28-27 10:37:0011.8[facility]annCHEM OQWLJ6124-65-43 10:37:0059[facility]annCHEM GGVDP9123-95-79 10:37:002.9[facility] BqycvvzNDRUVQWZLG2254-06-75 10:37:006.8 [facility] FfjnsnpHBOYOPPRRD8053-12-76 10:37:004.47[facility]annHEMATOLOGY 2020-08-29 10:37:0010.6[facility] VitxuwoOTSTDRMITM6156-46-74 10:37:0034.0[facility] BfbyhmiDSRWGGAFVI1729-73-24 10:37:0076.1[facility] VqemynuCSCGHXCVJX9037-10-06 10:37:00 Test Item Value Reference Range Interpretation Comments MCH (test code = MCH) 23.8 pg 27.0-31.0 [facility] FwauawdVFJKHXPDDE0249-98-52 10:37:0031.3[facility] HermannHEMATOLOGY 2020-08-29 10:37:0018.2[facility] ZvzmssgWBWCGZLRFL2154-14-46 10:37:79586Yztmdyjw IbomxenUPZOGMOFBG0951-89-70 10:37:007.5[facility] IuxhfmrTASFZOFOAN8584-25-08 10:37:00 Test Item Value Reference Range Interpretation Comments PT (test code = PT) 12.8 s 12.0-14.7 [facility] ZnkvtbnFCWLJGMMCA2331-35-43 10:37:00 Test Item Value Reference Range Interpretation Comments INR (test code = INR) 0.97 1 0.85-1.17 [facility] CxejseoDVVJRHAIEA9706-90-78 10:37:00 Test Item Value Reference Range Interpretation Comments PTT (test code = PTT) 25.0 s 22.9-35.8 [facility] BoaokovGYEVZROWHD3388-03-95 10:37:0070.5[facility] HermannHEMATOLOGY 2020-08-29 10:37:0018.8[facility] QlckfqjQAERKXPBKO0901-38-46 10:37:009.5[facility] UhtkyqtNWRLQTOTPV7645-94-66 10:37:000.9[facility] AbfvgneRPNYXFMVDG7374-58-72 10:37:000.3[facility] GboacrmQBGQBYALZG8632-93-79 10:37:004.8[facility] Marty GCRLQKDKIQ0273-02-04 10:37:001.3[facility] CqpxdimPAQCVPNXXK3575-56-27 10:37:000.6 [facility] BczkeunSUMKLBWSHD3053-71-10 10:37:000.1[facility] HermannHEMATOLOGY 2020-08-29 10:37:001+ *ABN*(08/29/20 5:37 AM)[facility] BozibroWDBSRUVKSW4163-91-36 10:37:00Not Detected (08/29/20 5:37 AM)[facility] RESULTS 2020-08-29 10:37:00Negative (08/29/20 5:37 AM)[facility]annCHEM MEPGM8956-77-87 10:37:14910Ryvihavw HermannCHEM XDJMH6298-72-48 10:37:0028[facility]annCHEM YNRWS3742-80-40 10:37:001.01[facility]annCHEM LIWKM9032-26-49 10:37:68342 [facility]annCHE[facility] CDONQ7885-47-24 10:37:003.8[facility] HermannCHEM PANEL 2020-08-29 10:37:18729Dmqkksdd HermannCHEM CHBZO2948-87-82 10:37:0028[facility]annCHEM EVFUX8124-41-89 10:37:009.8[facility]annCHEM QICSQ3244-79-86 10:37:0011.8[facility]annCHEM DLFPH3539-37-68 10:37:0059[facility]annCHEM XTHZH4537-45-26 10:37:002.9[facility] RwfombtKBGVSBOBEG8984-55-36 10:37:006.8 [facility] HellwsiJTXGKIFHAK5492-11-69 10:37:004.47[facility] HermannHEMATOLOGY 2020-08-29 10:37:0010.6[facility] TmkuvlrPSNRGAYBNG6829-16-16 10:37:0034.0[facility] IndeqceEXTTIBAXNO0910-35-50 10:37:0076.1[facility] VytnnurEUBWSCTVOB1922-62-22 10:37:00 Test Item Value Reference Range Interpretation Comments MCH (test code = MCH) 23.8 pg 27.0-31.0 [facility] NuquwbhYDFRXEKMLT0072-11-71 10:37:0031.3[facility] HermannHEMATOLOGY 2020-08-29 10:37:0018.2[facility] OybxqjdOYGWCZMQIA7558-02-44 10:37:54452Uynqwuck StimjojLSZDFJMHPI0344-47-52 10:37:007.5[facility] FybnhdcUPYEILHGCZ5770-37-34 10:37:00 Test Item Value Reference Range Interpretation Comments PT (test code = PT) 12.8 s 12.0-14.7 [facility] BpodairPLUGAHGJYQ1622-18-22 10:37:00 Test Item Value Reference Range Interpretation Comments INR (test code = INR) 0.97 1 0.85-1.17 [facility] IrteiolUBUHILDAGH9108-09-67 10:37:00 Test Item Value Reference Range Interpretation Comments PTT (test code = PTT) 25.0 s 22.9-35.8 [facility] IsywqymAVJGIHBYWW4790-14-04 10:37:0070.5[facility] HermannHEMATOLOGY 2020-08-29 10:37:0018.8[facility] RuasgvbMTJVIGIMBP3419-76-66 10:37:009.5[facility] KwkjtlkCUKEQTMNGL2970-76-43 10:37:000.9[facility] ThaolylMHYPEYDWPX2727-86-91 10:37:000.3[facility] MmwkimqOYYMNXNTQA7219-35-95 10:37:004.8[facility] [place] MOJVLBYVSI7905-84-43 10:37:001.3[facility] CwlvbibWPAGUPAQCL6596-07-87 10:37:000.6 [facility] HplctghQPAHCLNXIO5768-89-12 10:37:000.1[facility] HermannHEMATOLOGY 2020-08-29 10:37:001+ *ABN*(08/29/20 5:37 AM)[facility] NxrjtjnDGIPOHEHZF6949-22-39 10:37:00Not Detected (08/29/20 5:37 AM)[facility]annBLOOD BANK RESULTS 2020-08-29 10:37:00Negative (08/29/20 5:37 AM)[facility] HermannCHEM DYNGG8540-62-54 10:37:28498Agopeetw HermannCHEM TDMUG0443-36-44 10:37:0028[facility] HermannCHEM LVWPJ7711-30-45 10:37:001.01[facility] HermannCHEM YCHSR4670-61-36 10:37:82861 [facility]annCHEM HUUVV9458-26-50 10:37:003.8[facility] HermannCHEM PANEL 2020-08-29 10:37:83826Vgucqdij HermannCHEM QPYUN4236-91-96 10:37:0028[facility] HermannCHEM FQARR9107-90-66 10:37:009.8[facility] HermannCHEM CMKYZ4887-31-38 10:37:0011.8[facility] HermannCHEM PISIA4200-65-59 10:37:0059[facility] HermannCHEM FRQBR2974-68-89 10:37:002.9[facility] EnjdgidJFLTLSRKYZ9545-55-38 10:37:006.8 [facility] GyxavyrCQEUNQSGPA4877-36-29 10:37:004.47[facility] HermannHEMATOLOGY 2020-08-29 10:37:0010.6[facility] ItxciovUMKOSNSXBS6826-04-68 10:37:0034.0[facility] XitvpzmWHFBYYAQRE4290-89-85 10:37:0076.1[facility] NeablujYKMCHDEHHH0460-15-11 10:37:00 Test Item Value Reference Range Interpretation Comments MCH (test code = MCH) 23.8 pg 27.0-31.0 [facility] OcbepcgGYMSIVIYQE3277-44-17 10:37:0031.3[facility] HermannHEMATOLOGY 2020-08-29 10:37:0018.2[facility] KrktpamYZTZTZFCQJ4730-87-81 10:37:72709Kegzoblb CwlkbqwOOLESRQITC8380-73-75 10:37:007.5[facility] GmzwgxjDEGMKOOWRN9600-65-73 10:37:00 Test Item Value Reference Range Interpretation Comments PT (test code = PT) 12.8 s 12.0-14.7 [facility] WhlzdfxUKARPIOYFO8875-86-58 10:37:00 Test Item Value Reference Range Interpretation Comments INR (test code = INR) 0.97 1 0.85-1.17 [facility] NctucyqMTJNNXHFFN3252-51-45 10:37:00 Test Item Value Reference Range Interpretation Comments PTT (test code = PTT) 25.0 s 22.9-35.8 [facility] MynyfvtQIWCXXODZC3681-10-07 10:37:0070.5[facility] HermannHEMATOLOGY 2020-08-29 10:37:0018.8[facility] SzapkahQHGYYOUCVE5582-55-76 10:37:009.5[facility] DddeyrzIXAWHBSMTE8533-50-02 10:37:000.9[facility] YxfopxeHZKLMJQXKF0330-75-19 10:37:000.3[facility] EsgrgjrMWTSCGNDYM3841-48-97 10:37:004.8[facility] [place] UXVWWDVAZF7580-65-15 10:37:001.3[facility] LasylcxPUSOPRKGPJ6092-83-33 10:37:000.6 [facility] QzqjjqhBKWDGPETVG2339-96-99 10:37:000.1[facility] HermannHEMATOLOGY 2020-08-29 10:37:001+ *ABN*(08/29/20 5:37 AM)[facility] IferprmSHDTRJDDKM1081-78-68 10:37:00Not Detected (08/29/20 5:37 AM)[facility] Gastric Emptying 2020-08-27 23:14:39PROCEDURE: [place] GASTRIC EMPTYING INDICATION: Abdominal bloating. TECHNIQUE: 0.5 [...] rate, with complete emptying by 4 hours. [facility]-[id number] Interface, Radiology Results 08/27/2020 6:17 PM CDT [...] rate, with complete emptying by 4 hours. [facility]-[id number] HospitalMiscphelps memorial hospitalneous referral test 2020-05-09 21:24:58 Test Item Value Reference Range Interpretation Comments [facility] [place] HIV-1 RNA QUAL PCR name (test code = 2566) [facility] Human Immunodef iciency result (test Virus 1 (HIV-1) by code = 1730) Qualitative Contaminated Land Consultant-M ediated Amplification ( TMA) [facility] test code 0446156 HIV-1 by Qualit ative TMA See Note SOURCE/SPECIMEN PLASMA HIV-1 RNA, QUAL ITATIVE TMA HIV-1 RNA, QL TMA T PRINCIPAL SCIENTIST Test Not Performed. Initial testing necessi tated a repeat, but the re was insufficient sa mple to perform repeat. SAMPLE LEFT FOR REPEAT IS 50 uL. NEED 1000 u L TO RUN REPEAT. This te st was performed using the APTIMA(R) HIV-R NA Qualitative Ass ay (Gen-Probe). ======== ======== Te st performed by:[employer] [place] [address] KYLE (test HIVQL - HIV-1 RNA, code = KYLE) Qualitative TMA (FROZEN)[facility]eral[facility] Test Code: 3319030Ekcagd: plasma [facility] duplex venous upper hjwslrwtw8139-27-27 04:57:00 Vascular Ultrasound Laboratory Upper Extremity Venous Report [address] [place] [address] Pat.Name: LIO WATTS Pat.ID: [id number] St.Date: 04/30/2020 Refer.MD: ELISEO ARCE MD Exam Time: 5:04:00 PM Study Type:UE Venous Age: 9 1955,65Y Sex: FEMALE Sonogrphr: IBIS Espinosa, SANKET Pat. Stat.:Inpatient Room: [place] [address] 2020 Tape Vol: JM, CPT - 4: 67403 Echo Event ID:[id number] Order ID: [id number] Reason for Study:Arm swelling or pain, DVT [...] veins.*Preliminary result reported to ASHLEY Santos @ 1050 on 04/30/20.PHYSICIAN INTERPRETATION Venous examination of the both upper extremities and neck demonstratedno evidence of deep venous thrombosis. Total superficial vein thrombosis of the right basilic vein. FINDINGS: Signed 04/30/2020 10:57 PMHuntersolt Marianna MD, RPVIInterface, Radiology Results In - 04/30/2020 10:58 PM CST Vascular Ultrasound Laboratory Upper Extremity Venous Report [address] [place] [address] Pat.Name: LIO WATTS Pat.ID: [id number] .Date: 04/30/2020 Refer.MD: ELISEO ARCE MD Exam Time: 5:04:00 PM Study Type:UE Venous Age: 9 1955,65Y Sex: FEMALE Sonogrphr: Dwayne Macias, IBIS, SANKET Pat. Stat.:Inpatient Room: [place] [address] 2020 Tape Vol: , CPT - 4: 22586 Echo Event ID:[id number] Order ID: [id number] Reason for Study:Arm swelling or pain, DVT [...] veins.*Preliminary result reported to ASHLEY Santos @ 7650 on 04/30/20.PHYSICIAN INTERPRETATION Venous examination of the both upper extremities and neck demonstratedno evidence of deep venous thrombosis. Total superficial vein thrombosis of the right basilic vein. FINDINGS: ------Signed 04/30/2020 10:57 PMFrancis Cabral MD, [facility] 2 [id number] 22:21:01EXAMINATION: XR CHEST 2 VW CLINICAL HISTORY: [...] active disease of the chest.[id number] Unsuccessful Skwszip9480-12-12 17:14:34ANicole zhang RN 04/30/2020 11:25 AMMidline Unsuccessful [...] place a PIV g.20 in lower arm .[facility] Abdomen 1 Vw Wsrhrpxz1955 16:20:14EXAMINATION: XR ABDOMEN 1 VW PORTABLE CLINICAL HISTORY: Abdominal pain post op COMPARISON: No prior IMPRESSION:1.Residual barium within the colon throughout. No small bowel obstruction noted. [facility]-2U [id number] Interface, Radiology Results Incoming - 04/30/2020 10:23 AM CST EXAMINATION: XR ABDOMEN 1 VW PORTABLECLINICAL HISTORY: Abdominalpain post opCOMPARISON: No priorIMPRESSION:1.Residual barium within the colon throughout. No smallbowel obstruction noted.[facility]-[id number] RllnhenkIgyngj6083-21-61 20:57:57Carlee Malloy MD 04/28/2020 2:59 PMAirwayPerformed by: Carlee Malloy MDAuthorized by: Carlee Malloy MD Location: ORUrgency: ElectiveDifficult Airway: No Anesthesiologist: Kvng Malloy, FLORENTINesident/INSPECTOR PRINTED CIRCUIT BOARDS/AA: Allan Morocho, DOPerformed by: resident/INSPECTOR PRINTED CIRCUIT BOARDS/AAPreoxygenated opfl552% O2: Yes C- spine Precautions Maintained Throughout: [...] No Number of Attempts at Approach: 1 [facility] CenterTransthoracic Echocardiogram Complete, (w Contrast, Strain and 3D if needed)2020-04-28 00:20:00 Echocardiography Report [address] [place] [address] Pat.Name: LIO WATTS Marta.ID: [id number] .Date: 04/27/2020 Refer.MD: ELISEO ARCE MD Exam Time: 2:21:00 PM Study Type:Routine Echo Height: 64in Weight: 213lb BSA: 2.01 m2 Age: 9 1955,65Y Sex: FEMALE BP: 128/89 HR: 102 bpm Sonogrphr: SANKET Perkins Pat. Stat.:Inpatient Room: [facility] Study Status:Final Echo Event ID:[id number] Order ID: [id number] Reason for Study:Atrial FibrillationHistory / Clinical:Hypertension Procedures: [...] estimate PA systolic pressure. MEASUREMENTS: 2DParasternal Long [place] Ao An 2.2 cm LVPWd 1 cm [...] 04/27/2020 6:21 PM CST Echocardiography Report [address]Name: LIO WATTS Pat.ID: [id number] .Date: 04/27/2020 Refer.MD: ELISEO ARCE MD Exam Time: 2:21:00 PM Study Type:Routine Echo Height: 64in Weight: 213lb BSA: 2.01 m2 Age: 9 1955,65Y Sex: FEMALE BP: 128/89 HR: 102 bpm Sonogrphr: SANKET Perkins Pat. Stat.:Inpatient Room: [facility] Study Status:Final Echo Event ID:[id number] Order ID: [id number] Reason for Study:Atrial FibrillationHistory / Clinical:Hypertension Procedures: [...] PA systolic pressure.- MEASUREMENTS: ---- 2DParasternal Long [place] Ao An 2.2 cm LVPWd 1 cm [...] SVi 34 ml/m2 LVOT CI 3.1 l/m/m2 [facility] 04/27/2020 06:20 [facility] Esophagram Double Biezqnqb2849-66-66 18:07:12EXAMINATION: [place] ESOPHAGRAM DOUBLE CONTRAST CLINICAL HISTORY: [...] spontaneous gastroesophageal reflux. [id number] Interface, Radiology Results [facility] 04/25/2020 12:10 PM CST EXAMINATION: FL ESOPHAGRAM [...] hiatal hernia. There was mild spontaneous gastroesophageal reflux.[id number] CenterCT Chest Wo Contrast Abdomen Wo Contrast Pelvis Wo Ucezqnog4829-98-10 15:23:55EXAMINATION: CT CHEST WO CONTRAST ABDOMEN WO [...] chronic and incidental findings as detailed above. [facility]-[id number] Dictated and approved by radiology resi dent/fellow: Jenna Valenzuela M.D. I, Medhat Flowers Jr., M.D., personally reviewed the images and resident's/fellow's findings and agree with the final report.[facility], Radiology Results Incoming - 04/21/2020 9:27 [...] aorta.4.Additional chronic and incidental findings as detailed above.[facility]-[id number] and approved by vice president underwriting/fellow: Jenna Valenzuela M.D.I, Medhat Flowers Jr., M.D., personally reviewed the images and resident's/fellow's findings and agree with the final report. [facility] SystemDIA, GC, TV,PCR, IN IGNQO7527-23-19 15:38:00 Test Item Value Reference Range Interpretation Comments FT (test code = CHTR) Not detected (qualifier Not Detected N value) FT (test code = Not detected (qualifier Not Detected N NGONO) value) FT (test code = TRVG) Not detected (qualifier Not Detected N value) URINALYSIS WITH FOXHVOQVNMZ0318-67-85 10:57:00 Test Item Value Reference Range Interpretation Comments Color (test code = UCOLR) Dk. Yellow Clarity (test code = UCLAR) Hazy Glucose (test code = UGLUC) NEGATIVE NEGATIVE N Bilirubin (test code = UBILI) NEGATIVE NEGATIVE N Ketones (test code = UKET) NEGATIVE NEGATIVE N Specific Drury (test code = 1.025 1.005-1.030 A USPGR) [...]
[2021-05-15 18:20] LABS: Absolute Lymphocytes (CBC) 1.9 K/uL (0.7-4.9); Basophils % 0.5 % (0-1.3); Hematocrit 36.1 % (36.0-45.0); Lymphocytes % 26.1 % (15.3-44.8); MPV 7.1 fL (7.6-11.3); RBC Red Blood Cell Count 4.56 M/uL (3.86-4.86)
[2021-05-15 18:25] LABS: Protime INR 1.28
[2021-05-15] MEDS ORDERED: FUROSEMIDE 40 MG/4 ML VIAL ONE (18:27)
[2021-05-15] MEDS ORDERED: ONDANSETRON 4 MG/2 ML VIAL ONE (18:28)
[2021-05-15] MEDS ORDERED: MORPHINE 4 MG/ML SYR ONE ×2 (18:28→20:17)
[2021-05-15 18:50] LABS: Anisocytosis 2+; Blood Morphology Comment NOTED (NOT SEEN); Platelet Estimate ADEQ; Polychromasia SLIGHT; White Blood Cell Scan OK (OK)
[2021-05-15 19:11] LABS: ALT/SGPT 22 U/L (12-78); Albumin 2.9 g/dL (3.4-5.0); Alkaline Phosphatase 74 U/L (45-117); BUN Blood Urea Nitrogen 20 mg/dL (7-18); Bicarbonate 28 mmol/L (21-32); Bilirubin Direct 0.1 mg/dL (0-0.2); Bilirubin Total 0.4 mg/dL (0.2-1.0); Glucose Level 105 mg/dL (74-106); NT PRO-BNP 1766 pg/mL (<125); Protein, Total 6.8 g/dL (6.4-8.2); Sodium Level 144 mmol/L (136-145); Troponin (Emerg Dept Use Only) < 0.02 ng/mL (0.0-0.045)
[2021-05-15 19:17] LABS: Potassium 3.5 mmol/L (3.5-5.1)
[2021-05-15 19:18] LABS: AST/SGOT 29 U/L (15-37); Magnesium 2.1 mg/dL (1.8-2.4)
[2021-05-15 19:35] LABS: SARS-COV-2 RT PCR NEGATIVE (NEGATIVE)
--- NOTE | 2021-05-15 20:21 | ER ---
Nurse's Notes [facility] Name: Marjan Fleming Age: 66 yrs Sex: Female : 1955 Arrival Date: 05/15/2021 Time: 17:40 Bed 4 Private MD: Diagnosis: Unspecified combined systolic (congestive) and diastolic (congestive) heart failure;COPD/ Chronic obstructive pulmonary disease with (acute) exacerbation Presentation: 05/15 17:40 Chief complaint: Patient states: SOB for 1 day. Left her home without her oxygen. L ll1 wrist still hurts from her falls last month. Coronavirus screen: Client denies travel out of the [place] in the last 14 days. difficulty breathing, shortness of breath, Client presents with at least one sign or symptom that may indicate coronavirus-19. Standard/surgical mask placed on the client. Ebola Screen: Patient denies travel to an Ebola-affected area in the 21 days before illness onset. Initial Sepsis Screen: Does the patient meet any 2 criteria? No. Patient's initial sepsis screen is negative. Does the patient have a suspected source of infection? Yes: Productive cough/pneumonia. Risk Assessment: Do you want to hurt yourself or someone else? Patient reports no desire to harm self or others. Onset of symptoms was May 15, 2021. 17:40 Method Of Arrival: EMS ll1 17:40 Acuity: BLAYNE 3 ll1 Triage Assessment: 17:43 General: Appears in no apparent distress. Behavior is calm, cooperative, appropriate ll1 for age. Pain: Complains of pain in RUQ Pain currently is 9 out of 10 on a pain scale. Quality of pain is described as aching. Neuro: No deficits noted. Cardiovascular: No deficits noted. Respiratory: Reports shortness of breath pain with respiration Airway is patent Trachea midline Respiratory effort is even, labored, Respiratory pattern is symmetrical, tachypnea Breath sounds are diminished bilaterally. Onset: The symptoms/episode began/occurred this morning, the patient has moderate shortness of breath. Historical: - Allergies: 17:42 Bactrim DS; ll1 17:42 butorphanol tartrate; ll1 17:42 Fentanyl; ll1 17:42 Reglan; ll1 17:42 Stadol; ll1 17:42 sulfamethoxazole (bulk); ll1 17:42 TRIMETHOPRIM; ll1 - PMHx: 17:42 Anxiety; Atrial Fib; Bipolar disorder; Chronic pain; COPD; esophageal varices; ll1 Hepatitis; HIV; Hypertension; Migraines; Panic Attacks; - PSHx: 17:42 Appendectomy; Bilateral shoulder repair; Cholecystectomy; hernia repair; R wrist SX; ll1 - Immunization history:: Adult Immunizations up to date. - Social history:: Smoking status: Patient/guardian denies using tobacco, the patient reports quitting approximately 1.5 years ago. Screenin:43 Abuse screen: Denies threats or abuse. Nutritional screening: No deficits noted. ll1 Tuberculosis screening: No symptoms or risk factors identified. Fall Risk IV access (20 points). Total Hauser Fall Scale indicates No Risk (0-24 pts). Assessment: 18:40 Reassessment: No changes from previously documented assessment. Patient and/or family ll1 updated on plan of care and expected duration. Pain level reassessed. Patient is alert, oriented x 3, equal unlabored respirations, skin warm/dry/pink. Cardiovascular: Rhythm is regular. 19:32 General: Appears uncomfortable. Respiratory: Reports shortness of breath Airway is as6 patent Trachea midline Respiratory effort is even, labored, Respiratory pattern is symmetrical, tachypnea Breath sounds with wheezes bilaterally. Vital Signs: 17:40 BP 147 / 104; Pulse 71; Resp 25; Temp 98.9; Pulse Ox 100% ; Weight 108.86 kg; Height 5 ll1 ft. 4 in. (162.56 cm); Pain 9/10; 18:45 BP 143 / 90; Pulse 80; Resp 18; Pulse Ox 97% on Nebulizer Mask; ll1 19:33 BP 132 / 78; Pulse 74; Resp 30; Pulse Ox 98% on 3 lpm NC; as6 21:07 BP 117 / 65; Pulse 74; Resp 21 S; Pulse Ox 95% on 3 lpm NC; as6 17:40 Body Mass Index 41.20 (108.86 kg, 162.56 cm) ll1 ED Course: 17:40 Patient arrived in ED. ll1 17:41 Justus Neil PA is PHCP. cp 17:41 Liz Otoole MD is Attending Physician. cp 17:42 Triage completed. ll1 17:43 Arm band placed on Patient placed in an exam room, on a stretcher. ll1 17:43 Patient has correct armband on for positive identification. Bed in low position. Call ll1 light in reach. Side rails up X2. Pulse ox on. NIBP on. 17:44 Yanira De Jesus RN is Primary Nurse. ll1 18:02 XRAY Chest (1 view) In Process Unspecified. EDMS 18:24 EKG done, by ED staff, reviewed by Justus DHILLON. 3 20:20 Moody Sosa MD is Hospitalizing Provider. cp 21:23 No provider procedures requiring assistance completed. Patient admitted, IV remains in as6 place. Administered Medications: 18:02 Drug: SOLU-Medrol (methylPrednisoLONE) 125 mg Route: IVP; Site: Other; ll1 18:44 Follow up: Response: No adverse reaction ll1 18:02 Drug: Albuterol - atroVENT (ipratropium) (3:1) (2.5 mg - 0.5 mg) 3 ml Route: Nebulizer; ll1 18:44 Follow up: Response: No adverse reaction ll1 18:40 Drug: Zofran (Ondansetron) 4 mg Route: IVP; Site: Other; ll1 21:23 Follow up: Response: No adverse reaction as6 18:43 Drug: Lasix (furosemide) 40 mg Route: IVP; Site: Other; ll1 21:22 Follow up: Response: No adverse reaction as6 18:43 Drug: morphine 4 mg {Note: rass 0.} Route: IVP; Site: Other; ll1 21:27 Follow up: Response: No adverse reaction; RASS: Alert and Calm (0) as6 20:18 Drug: morphine 4 mg Route: IVP; Site: Other; nathan 21:07 Follow up: Response: No adverse reaction; Pain is decreased nathan 21:27 Follow up: Response: RASS: Alert and Calm (0) as6 21:07 Drug: Lasix (furosemide) 20 mg Route: IVP; Site: Other; nathan 21:23 Follow up: Response: No adverse reaction as6 Outcome: 20:21 Decision to Hospitalize by Provider. cp 21:26 Admitted to L \T\ D, accompanied by nurse, via stretcher, room 203, with oxygen, on as6 monitor, with chart, Report called to bettie ferrer 21:26 Condition: stable 21:27 Patient left the ED. as6 Signatures: Dispatcher [employer] EDMS Justus Neil PA PA cp Herrera, Deanna 3 Yanira De Jesus RN RN ll1 Dayo Ko RN RN as6 Dee Rolon RN RN nathan
--- NOTE | 2021-05-15 20:21 | EDPHYS ---
Physician Documentation [facility] Name: Marjan Fleming Age: 66 yrs Sex: Female : 1955 Arrival Date: 05/15/2021 Time: 17:40 Bed 4 Private MD: ED Physician Liz Otoole HPI: 05/15 17:45 This 66 yrs old Female presents to ER via EMS with complaints of Shortness Of Breath. cp 17:45 The patient has shortness of breath at rest. Onset: The symptoms/episode began/occurred cp today. Duration: The symptoms are continuous, and are steadily getting worse. Associated signs and symptoms: Pertinent negatives: chest pain, fever. 17:45 Severity of symptoms: in the emergency department the symptoms are unchanged despite cp EMS interventions. Historical: - Allergies: 17:42 Bactrim DS; ll1 17:42 butorphanol tartrate; ll1 17:42 Fentanyl; ll1 17:42 Reglan; ll1 17:42 Stadol; ll1 17:42 sulfamethoxazole (bulk); ll1 17:42 TRIMETHOPRIM; ll1 - PMHx: 17:42 Anxiety; Atrial Fib; Bipolar disorder; Chronic pain; COPD; esophageal varices; ll1 Hepatitis; HIV; Hypertension; Migraines; Panic Attacks; - PSHx: 17:42 Appendectomy; Bilateral shoulder repair; Cholecystectomy; hernia repair; R wrist SX; ll1 - Immunization history:: Adult Immunizations up to date. - Social history:: Smoking status: Patient/guardian denies using tobacco, the patient reports quitting approximately 1.5 years ago. ROS: 17:50 Cardiovascular: Negative for chest pain, edema, palpitations. cp 17:50 Eyes: Negative for injury, pain, redness, and discharge. cp 17:50 Constitutional: Negative for body aches, chills, fever, poor PO intake. 17:50 ENT: Negative for ear pain, sore throat, difficulty swallowing, difficulty handling secretions. 17:50 Respiratory: Positive for shortness of breath, at rest. Negative for cough, wheezing. 17:50 Abdomen/GI: Negative for abdominal pain, nausea, vomiting, and diarrhea. 17:50 Back: Negative for pain at rest, pain with movement. 17:50 Neuro: Negative for altered mental status, dizziness, headache, syncope, weakness. 17:50 All other systems are negative. Exam: 17:55 Constitutional: The patient appears in no acute distress, alert, awake, cp non-diaphoretic, non-toxic, well developed, well nourished, obese. 17:55 Head/Face: Normocephalic, atraumatic. cp 17:55 Eyes: Periorbital structures: appear normal, Conjunctiva: normal, no exudate, no injection, Sclera: no appreciated abnormality, Lids and lashes: appear normal, bilaterally. 17:55 ENT: External ear(s): are unremarkable, Nose: is normal, Mouth: Lips: moist, Oral mucosa: moist, Posterior pharynx: is normal, airway is patent, no erythema, no exudate. 17:55 Chest/axilla: Inspection: normal. 17:55 Cardiovascular: Rate: normal, Rhythm: regular, JVD: is not appreciated. 17:55 Respiratory: the patient does not display signs of respiratory distress, Respirations: labored breathing, that is mild, Breath sounds: decreased breath sounds, that are mild, throughout, stridor, is not appreciated, wheezing: expiratory that is mild. 17:55 Abdomen/GI: Inspection: abdomen appears normal, Bowel sounds: active, all quadrants, Palpation: soft, in all quadrants, mild abdominal tenderness, in the right upper quadrant, rebound tenderness, is not appreciated, involuntary guarding, is not appreciated. 17:55 Neuro: Orientation: to person, place \\T\\ time. Mentation: is normal, Motor: moves all fours, strength is normal, Sensation: is normal. 18:20 ECG was reviewed by the Attending Physician. cp Vital Signs: 17:40 BP 147 / 104; Pulse 71; Resp 25; Temp 98.9; Pulse Ox 100% ; Weight 108.86 kg; Height 5 ll1 ft. 4 in. (162.56 cm); Pain 9/10; 18:45 BP 143 / 90; Pulse 80; Resp 18; Pulse Ox 97% on Nebulizer Mask; ll1 19:33 BP 132 / 78; Pulse 74; Resp 30; Pulse Ox 98% on 3 lpm NC; as6 21:07 BP 117 / 65; Pulse 74; Resp 21 S; Pulse Ox 95% on 3 lpm NC; as6 17:40 Body Mass Index 41.20 (108.86 kg, 162.56 cm) ll1 MDM: 17:42 Patient medically screened. cp 19:40 Test interpretation: by ED physician or midlevel provider: ECG, plain radiologic cp studies. 20:00 Data reviewed: vital signs, nurses notes, lab test result(s), EKG, radiologic studies, cp plain films. 20:20 Counseling: I had a detailed discussion with the patient and/or guardian regarding: the cp historical points, exam findings, and any diagnostic results supporting the discharge/admit diagnosis, lab results, radiology results, the need for further work-up and treatment in the hospital. 20:20 Response to treatment: the patient's symptoms have mildly improved after treatment. cp Physician consultation: Jimi Tomlinson was called at 20:15, was contacted at 20:15, regarding admission, to the telemetry unit. patient's condition. 05/15 17:42 Order name: Basic Metabolic Panel cp 05/15 17:42 Order name: CBC with Diff cp 05/15 17:42 Order name: LFT's cp 05/15 17:42 Order name: Magnesium cp 05/15 17:42 Order name: NT PRO-BNP; Complete Time: 19:23 cp 05/15 19:23 Interpretation: Abnormal: NT PRO-BNP 1766. cp 05/15 17:42 Order name: PT-INR; Complete Time: 18:43 cp 05/15 17:42 Order name: Troponin (emerg Dept Use Only); Complete Time: 19:23 cp 05/15 19:24 Interpretation: TROPED < 0.02; Reviewed. cp 05/15 17:42 Order name: COVID-19/FLU A+B/RSV (Document "Date of Onset" if Symptomatic); Complete cp Time: 19:36 05/15 19:36 Interpretation: Reviewed. cp 05/15 17:42 Order name: Basic Metabolic Panel; Complete Time: 19:23 EDMS 05/15 19:24 Interpretation: Normal except: BUN 20; CRE 1.48; GFR 35. cp 05/15 17:42 Order name: CBC with Automated Diff; Complete Time: 19:03 EDMS 05/15 19:03 Interpretation: Normal except: HGB 11.2; MCV 79.2; MCH 24.5; MCHC 30.9; RDW 22.6; MPV cp 7.1; MN% 12.4. 05/15 17:42 Order name: Liver (Hepatic) Function; Complete Time: 19:23 EDMS 05/15 19:24 Interpretation: Normal except: ALB 2.9; GLOB 3.9; A/G 0.7. cp 05/15 17:42 Order name: Magnesium; Complete Time: 19:23 EDMS 05/15 18:13 Order name: Urine Microscopic Only cp 05/15 18:50 Order name: CBC Smear Scan; Complete Time: 19:03 EDMS 05/15 17:42 Order name: XRAY Chest (1 view); Complete Time: 18:13 cp 05/15 17:42 Order name: EKG; Complete Time: 17:43 cp 05/15 17:42 Order name: Cardiac monitoring; Complete Time: 18:25 cp 05/15 17:42 Order name: EKG - Nurse/Tech; Complete Time: 18:25 cp 05/15 17:42 Order name: IV Saline Lock; Complete Time: 17:45 cp 05/15 17:42 Order name: Labs collected and sent; Complete Time: 17:45 cp 05/15 17:42 Order name: O2 Per Protocol; Complete Time: 17:45 cp 05/15 17:42 Order name: O2 Sat Monitoring; Complete Time: 17:45 cp 05/15 21:08 Order name: Urine Dipstick-Ancillary EDWI 05/15 18:13 Order name: Urine Dipstick-Ancillary (obtain specimen); Complete Time: 21:10 cp EC:20 Rate is 65 beats/min. Rhythm is regular. IL interval is normal. QRS interval is normal. cp QT interval is normal. Interpreted by me. Reviewed by me. Administered Medications: 18:02 Drug: SOLU-Medrol (methylPrednisoLONE) 125 mg Route: IVP; Site: Other; ll1 18:44 Follow up: Response: No adverse reaction ll1 18:02 Drug: Albuterol - atroVENT (ipratropium) (3:1) (2.5 mg - 0.5 mg) 3 ml Route: Nebulizer; ll1 18:44 Follow up: Response: No adverse reaction ll1 18:40 Drug: Zofran (Ondansetron) 4 mg Route: IVP; Site: Other; ll1 21:23 Follow up: Response: No adverse reaction as6 18:43 Drug: Lasix (furosemide) 40 mg Route: IVP; Site: Other; ll1 21:22 Follow up: Response: No adverse reaction as6 18:43 Drug: morphine 4 mg {Note: rass 0.} Route: IVP; Site: Other; ll1 21:27 Follow up: Response: No adverse reaction; RASS: Alert and Calm (0) as6 20:18 Drug: morphine 4 mg Route: IVP; Site: Other; nathan 21:07 Follow up: Response: No adverse reaction; Pain is decreased nathan 21:27 Follow up: Response: RASS: Alert and Calm (0) as6 21:07 Drug: Lasix (furosemide) 20 mg Route: IVP; Site: Other; nathan 21:23 Follow up: Response: No adverse reaction as6 Disposition Summary: 05/15/21 20:21 Hospitalization Ordered Hospitalization Status: Observation cp Provider: Moody Sosa cp Location: Telemetry/MedSurg (observation) cp Condition: Stable cp Problem: an acute exacerbation cp Symptoms: have improved cp Bed/Room Type: Standard cp Room Assignment: 203(05/15/21 21:02) mw Diagnosis - Unspecified combined systolic (congestive) and diastolic (congestive) heart failure cp - COPD/ Chronic obstructive pulmonary disease with (acute) exacerbation cp Forms: - Medication Reconciliation Form cp - SBAR form cp Addendum: 05/17/2021 18:50 Co-signature as Attending Physician, Liz Otoole MD PA/AIRPLANE FLIGHT ATTENDANT's history reviewed, m a2 patient interviewed, and examined. I agree with assessment and care plan and confirm the diagnosis (es) above. Signatures: Dispatcher [employer] EDWI Gracia Monzon RN RN mw Attema, Lee, MOTOR POLARIZER-C MOTOR POLARIZER-Cla1 Justus Neil PA PA cp Alzahri, Mohammad, MD MD ma2 Yanira De Jesus RN RN ll1 Dee Rolon RN RN bo Slawson, Ashby RN as6 Corrections: (The following items were deleted from the chart) 05/15 21:02 20:21 cp italo 05/16 21:16 05/15 19:40 Data reviewed: vital signs, nurses notes, lab test result(s), EKG, cp radiologic studies, plain films, cp
--- NOTE | 2021-05-15 20:40 | P.HP ---
Certification for Inpatient Patient admitted to: Observation With expected LOS: <2 Midnights Patient will require the following post-hospital care: None Practitioner: I am a practitioner with admitting privileges, knowledge of patient current condition, hospital course, and medical plan of care. Services: Services provided to patient in accordance with Admission requirements found in Title 42 Section 412.3 of the Code of Federal Regulations Patient History Date of Service: 05/15/21 Reason for admission: CHF exacerbation History of Present Illness: 66-year-old female with history of chronic diastolic congestive heart failure, COPD on chronic home oxygen, paroxysmal atrial fibrillation, CAD, HIV, BPD, hyperlipidemia, obesity and GERD presents the emergency department for shortness of breath, increasing oxygen requirement at home. Patient reports over the course last 2 days she had increased her home oxygen level from 2 to 4 L and feeling more short of breath than baseline. Patient was evaluated in the emergency department labs significant for elevated BNP 1766 chest x-ray with moderate CHF/volume overload pattern, patient with dyspnea, expiratory wheezing and crackles on exam, ED provider wishes to admit under observation for further evaluation and management of CHF exacerbation. Last echocardiogram in 2019 showed normal ejection fraction. Allergies fentanyl Allergy (Severe, Verified 03/31/21 11:11) Hives butorphanol tartrate [From Stadol] Allergy (Verified 03/31/21 11:11) confusion metoclopramide HCl [From Reglan] Allergy (Verified 03/31/21 11:11) Shortness of breath sulfamethoxazole [From Bactrim] Allergy (Verified 03/31/21 11:11) Hives/Rash trimethoprim [From Bactrim] Allergy (Verified 03/31/21 11:11) Hives/Rash Bactrim DS Allergy (Intermediate, Uncoded 03/31/21 11:11) Nausea/Vomiting Home Medications: Raltegravir Potassium [Isentress] 1 tab PO BID 02/28/12 Sertraline [Zoloft*] 2 tab PO DAILY 09/15/12 Metoprolol Tartrate 100 mg PO BID #60 tablet 02/03/20 Apixaban [Eliquis] 1 tab PO BID 07/30/20 Lisinopril [Zestril] 1 tab PO BID 07/30/20 Emtricitabine/Tenofov Alafenam [Descovy 200-25 mg Tablet] 1 tab PO DAILY 03/05/21 Hydralazine HCl 50 mg PO TID 03/05/21 Amlodipine Besylate 1 tab PO DAILY 03/30/21 Buspirone HCl 30 mg PO BID 03/30/21 Dexlansoprazole [Dexilant] 60 mg PO DAILY 03/30/21 Docusate/Senna [Senokot-S*] 1 tab PO DAILY PRN 03/30/21 Albuterol Inhaler [Ventolin Inhaler*] 2 puff IH BID 03/31/21 LORazepam [Lorazepam] 1 tab PO BID 03/31/21 buPROPion HCL [Bupropion Xl] 1 tab PO DAILY 04/03/21 Hydrocodone 5/APAP 325 [Dennis 5/325*] 1 tab PO Q8H PRN 5 Days #15 tab 04/05/21 Ferrous Sulfate [Iron] 325 mg PO DAILY 30 Days #30 tablet 04/15/21 - Past Medical/Surgical History Diabetic: No -: HIV diag ~ [address] Yohan Cardenas in [place] -: CAD -: Bipolar disorder Dr Krause in [place] -: Hypertension -: COPD on home O2 -: Tobacco abuse -: former Alcohol abuse -: Anemia likely of chronic disease -: Hyperlipidemia -: GERD with hiatal hernia -: Atrial fibrillation on chronic anticoagulation therapy -: Chronic diastolic CHF -: Appendectomy -: Cholecystectomy -: left and right shoulder rotator cuff repair -: Right foot repair -: Right shoulder replacement -: left shoulder rotated cuff -: hiatal hernia repair february 2021 -: right wrist Psychosocial/ Personal History: She lives at home. She is not . - Family History Father -: Heart disease, Hypertension, Lung disease, GI disease, Diabetes, Stroke, Liver disease, Kidney disease Mother -: Hypertension, Lung disease, GI disease, Blood disorders, Other (see notes) Notes: Epilepsy, chronic pain, leukemia - Social History Smoking Status: Former smoker Alcohol use: No CD- Drugs: No Caffeine use: Yes Place of Residence: Home Review of Systems 10-point ROS is otherwise unremarkable General: Weakness, Malaise Respiratory: Cough, Shortness of Breath, SOB with Excertion, Wheezing Physical Examination - Physical Exam General: Alert, In no apparent distress, Oriented x3 HEENT: Atraumatic, PERRLA, Mucous membr. moist/pink, EOMI, Sclerae nonicteric Neck: Supple, 2+ carotid pulse no bruit, No LAD, Without JVD or thyroid abnormality Respiratory: Diminished, Crackles/rales, Expiratory wheezes Cardiovascular: Regular rate/rhythm, Normal S1 S2 Capillary refill: <2 Seconds Gastrointestinal: Normal bowel sounds, No tenderness Musculoskeletal: No tenderness Integumentary: No rashes Neurological: Normal speech, Normal strength at 5/5 x4 extr, Normal tone, Normal affect - Studies Laboratory Data (last 24 hrs) 05/15/21 18:11: PT 14.7 H, INR 1.28 05/15/21 18:11: WBC 7.10, Hgb 11.2 L, Hct 36.1, Plt Count 227 05/15/21 18:11: Sodium 144, Potassium 3.5, BUN 20 H, Creatinine 1.48 H, Glucose 105, Magnesium 2.1, Total Bilirubin 0.4, AST 29, ALT 22, Alkaline Phosphatase 74 Assessment and Plan - Plan Assessment: Acute on chronic hypoxic respiratory failure secondary to acute on chronic diastolic congestive heart failure COPD on chronic home oxygen therapy with exacerbation Paroxysmal atrial fibrillation on chronic anticoagulation therapy CAD HIV BPD Hypertension Hyperlipidemia Obesity GERD Plan: Acute on chronic hypoxic respiratory failure secondary to acute on chronic diastolic congestive heart failure: Supplemental oxygen as needed, will obtain ABG. Will treat with Lasix 40 mg IV twice daily, patient does not take a diuretic at home. This may need to be adjusted to Diamox if patient is found to be hypercapnic. Will consult cardiology, last echocardiogram approximately 1 year ago with normal left ejection fraction. 1500 cc/day fluid restriction at this time. Daily weights. COPD on chronic home oxygen therapy with exacerbation: Continue with IV steroids, as needed nebulizer treatments and ICS. Pulmonology also see patient. Paroxysmal atrial fibrillation on chronic anticoagulation therapy: Continue Eliquis and other home medications. CAD: Obtain an continue home medications HIV:Obtain an continue home medications BPD:Obtain an continue home medications Hypertension:Obtain an continue home medications Hyperlipidemia:Obtain an continue home medications Obesity: Counseled on need for lifestyle change. GERD:Obtain an continue home medications DVT PPX: Continue Eliquis Code status: Full code Discharge Plan: Home Plan to discharge in: 24 Hours - Advance Directives Does patient have a Living Will: Yes Does patient have a Durable POA for Healthcare: No - Code Status/Comfort Care Code Status Assessed: Yes (Full code) Critical Care: No Time Spent Managing Pts Care (In Minutes): 55
[2021-05-15] MEDS ORDERED: FUROSEMIDE 20 MG/ 2ML VIAL ONE (21:00)
[2021-05-15 21:08] LABS: Urine Blood Negative (Negative); Urine Glucose Negative (Negative); Urine Protein Negative (Negative)
[2021-05-15 21:23] LABS: Urine Bacteria 20-50 /HPF (<20); Urine Mucus 2+ /HPF (NONE SEEN); Urine RBC <5 /HPF (NONE SEEN)
[2021-05-15] MEDS ORDERED: ALBUTEROL 2.5 MG/3 ML NEB SOL NEB PRN (21:49)
[2021-05-15] MEDS ORDERED: ONDANSETRON 4 MG/2 ML VIAL IV PRN (21:49)
[2021-05-15] MEDS ORDERED: IPRATROPIUM BROM 0.5MG/2.5ML NEB PRN (21:49)
[2021-05-15 22:48] LABS: Urine Appearance CLEAR (Clear); Urine Bilirubin NEGATIVE (Negative); Urine Blood NEGATIVE (Negative); Urine Color YELLOW (Yellow); Urine Glucose NEGATIVE (Negative); Urine Protein NEGATIVE (Negative); Urine Urobilinogen 0.2 mg/dL (0.2-1.0); Urine pH 5.5 (5.0-7.0)
[2021-05-15 22:49] VITALS: BMI 36.9
[2021-05-15 22:50] LABS: Urine Microscopic Reflex ORDER UMIC
[2021-05-15 22:56] LABS: Urine Bacteria 20-50 /HPF (<20); Urine Mucus 2+ /HPF (NONE SEEN); Urine RBC <5 /HPF (NONE SEEN)
[2021-05-15] MEDS: APIXABAN 5 MG TABLET PO SCH (23:26)
[2021-05-16] MEDS: LORAZEPAM 1 MG TABLET PO SCH ×3 (00:39→21:59)
[2021-05-16] MEDS: METHYLPREDNISOLONE 40 MG INJ IV SCH ×2 (00:39→08:08)
[2021-05-16 06:09] LABS: Absolute Lymphocytes (CBC) 0.8 K/uL (0.7-4.9); Basophils % 0.1 % (0-1.3); Hematocrit 32.9 % (36.0-45.0); MPV 7.1 fL (7.6-11.3); RBC Red Blood Cell Count 4.15 M/uL (3.86-4.86)
[2021-05-16 06:18] LABS: Albumin 2.8 g/dL (3.4-5.0); Bilirubin Total 0.3 mg/dL (0.2-1.0); Magnesium 2.2 mg/dL (1.8-2.4); Potassium 3.6 mmol/L (3.5-5.1); Protein, Total 7.1 g/dL (6.4-8.2)
[2021-05-16 06:22] LABS: Arterial Blood Carboxyhemoglob 1.5 % (0-1.5); Blood Gas Oxyhemoglobin 93.7 % (94-97); Blood O2 Saturation 96.3 % (92-98.5)
--- NOTE | 2021-05-16 07:22 | RAD REPORT ---
EXAM DESCRIPTION: RAD - Chest Single View - 05/15/2021 10:37 pm CLINICAL HISTORY: eval pulm. edema COMPARISON: Chest Single View dated 05/15/2021; Chest Single View dated 04/06/2021; Chest Single Vie w dated 04/03/2021; Chest Single View dated 03/29/2021 FINDINGS: Lines: None. Lungs: Lung volumes are improved from earlier in the day. The prior chest radiograph was probably don e in expiration. Pulmonary edema remains. Pleural: No significant pleural effusions or pneumothorax. Cardiac: Cardiomegaly. Bones: No acute fractures. Bilateral shoulder arthroplasty. Other: IMPRESSION: Congestive heart failure is probably little changed despite improvement in lung volumes.
[2021-05-16] MEDS: APIXABAN 5 MG TABLET PO SCH ×2 (08:07→20:41)
[2021-05-16] MEDS: HYDROCODONE/APAP 5/325 MG TAB PO PRN ×2 (08:08→17:42)
[2021-05-16] MEDS: lisinopriL 10 MG TAB PO SCH (08:08)
[2021-05-16] MEDS ORDERED: FUROSEMIDE 40 MG/4 ML VIAL IV SCH (09:00)
--- NOTE | 2021-05-16 11:03 | P.PN ---
Subjective Date of Service: 05/16/21 Chief Complaint: Shortness of breath Subjective: Improving (Patient has been complaining of some chest pain recently however she has sudden onset of shortness of breath gases recurrent episodes where she is unable to exhale) Patient has been complaining of some chest pain recently however she has sudden onset of shortness of breath gases recurrent episodes where she is unable to exhale recurrent hospital admissions losing weight recently only had a cardiac catheterization done in fact it was also done 5 years ago was normal Review of Systems Respiratory: Shortness of Breath Cardiovascular: Chest Pain Physical Examination - Vital Signs Temperature: 96.9 F Blood Pressure: 172/83 Pulse: 69 Respirations: 22 Pulse Ox (%): 92 - Physical Exam General: Alert, In no apparent distress, Oriented x3 Respiratory: Clear to auscultation bilaterally, Diminished Cardiovascular: No edema, Normal pulses - Studies Laboratory Data (last 24 hrs) 05/15/21 18:11: PT 14.7 H, INR 1.28 05/15/21 18:11: WBC 7.10, Hgb 11.2 L, Hct 36.1, Plt Count 227 05/15/21 18:11: Sodium 144, Potassium 3.5, BUN 20 H, Creatinine 1.48 H, Glucose 105, Magnesium 2.1, Total Bilirubin 0.4, AST 29, ALT 22, Alkaline Phosphatase 74 Assessment & Plan - Problems (Diagnosis) (1) COPD exacerbation Current Visit: No Status: Acute Plan: Patient is 66 years of age recurrent hospital admissions with heart failure and COPD complaining of chest discomfort has had 2 cardiac caths done blood gases reviewed mild hypercarbia troponin is negative chest x-ray shows cardiomegaly there is no evidence of heart failure fact patient is losing weight apparently she is using Perforomist at home pliant with her medications will consult cardiology about her chest pain change to p.o. Lasix
[2021-05-16] MEDS ORDERED: HYDROCODONE/APAP 5/325 MG TAB PO ONE (12:04)
[2021-05-16] MEDS ORDERED: AMLODIPINE 5 MG TAB PO ONE (12:38)
[2021-05-16] MEDS: FUROSEMIDE 40 MG/4 ML VIAL IV SCH (13:43)
[2021-05-16] MEDS: FAMOTIDINE 20 MG TAB PO SCH (17:42)
--- NOTE | 2021-05-16 18:16 | CON ---
Date of Consultation: 05/16/2021 Reason For Consultation: Chest pain and shortness of breath. History Of Present Illness: This is a 66-year-old female, history of chronic diastolic heart failure , COPD, atrial fibrillation, coronary artery disease, HIV, dyslipidemia, acid reflux, presented with worsening shortness of breath on minimal activity along with orthopnea, mild lower extremity edema re quiring oxygen. Also, she has chest pain, sharp in nature, retrosternal, no radiation, not related t o exertion. The patient has shortness of breath even when she talks. Past Medical History: As outlined above in HPI. Medication: Refer reconciliation sheet for detailed list. Allergies: LIST OF ALLERGIES WERE REVIEWED. PLEASE REFER TO NURSE'S SHEET. Family History: No premature coronary artery disease or cancer. Social History: She is a smoker that quit about a year ago, but smoked more than 50 years pack per d ay. Does not drink or use any drugs. Review of Systems: All systems reviewed were negative except mentioned in HPI. Physical Examination: Vital Signs: Temperature is 96.9, pulse 69, breathing at 22, blood pressure is 194/99. General: Pleasant middle-aged female, in no distress. Head and Neck: Pupils are equal, reactive to light. Intact eye movements. She has a JVD elevation up to her earlobes. Neck: Supple. Thyroid is not enlarged. Lungs: Has some crackles both lung bases. No accessory muscle use or muscle retraction. Heart: Regular rate and rhythm. No extra sounds. Abdomen: Soft, nontender. Bowel sounds positive. No organomegaly. No masses or hernia. No rigidi ty or rebound Extremities: 1+ pitting edema bilaterally. No clubbing, cyanosis. Intact pulses. Skin: No rash was noted. Alert, awake, oriented x3. No acute focal deficits appreciated. Investigations: Hemoglobin 10.6 and white blood count 5.3. Creatinine is 1.1. NT proBNP was 1766, and troponins negative. Chest x-ray showed congestive heart failure. Assessment And Recommendations: 1.Acute on chronic diastolic congestive heart failure exacerbation. Recommend Lasix 40 mg IV q.12 h ours and carefully monitoring BUN, creatinine, electrolytes. 2.Recommend better blood pressure control. Blood pressure should improve some with the IV diuretics , to increase lisinopril to 20 mg daily and adjust further blood pressure medicines to get blood pres sure under better control to reduce afterload. 3.Chest pain. Troponins negative with no EKG acute abnormalities. The patient will need a stress t est if not done recently. 4.Atrial fibrillation on anticoagulation and rate is controlled. Continue to monitor. SR/MODL Voice ID: [id number] Report ID: [id number]
[2021-05-16] MEDS: predniSONE 20 MG TAB PO SCH (20:41)
[2021-05-16] MEDS: DULERA 200/5 (MOMETASONE/FORMOTEROL) INHALER IH SCH (20:41)
[2021-05-16] MEDS: MORPHINE 2 MG/ML SYR IV PRN (20:43)
[2021-05-17] MEDS: FUROSEMIDE 40 MG/4 ML VIAL IV SCH (00:57)
[2021-05-17] MEDS: MORPHINE 2 MG/ML SYR IV PRN ×2 (04:45→11:22)
[2021-05-17 06:15] LABS: Absolute Lymphocytes (CBC) 0.7 K/uL (0.7-4.9); Basophils % 0.1 % (0-1.3); Hematocrit 33.9 % (36.0-45.0); Lymphocytes % 10.5 % (15.3-44.8); MPV 6.8 fL (7.6-11.3); RBC Red Blood Cell Count 4.26 M/uL (3.86-4.86)
[2021-05-17 06:36] LABS: Albumin 2.8 g/dL (3.4-5.0); Bilirubin Total 0.3 mg/dL (0.2-1.0); Magnesium 2.3 mg/dL (1.8-2.4); Potassium 3.5 mmol/L (3.5-5.1); Protein, Total 6.7 g/dL (6.4-8.2)
[2021-05-17 08:55] VITALS: BP 143/80; TEMP 97.1
[2021-05-17] MEDS: LORAZEPAM 1 MG TABLET PO SCH (08:57)
[2021-05-17] MEDS: lisinopriL 10 MG TAB PO SCH (08:57)
[2021-05-17] MEDS: predniSONE 20 MG TAB PO SCH (08:57)
[2021-05-17] MEDS: APIXABAN 5 MG TABLET PO SCH (08:57)
[2021-05-17] MEDS: FAMOTIDINE 20 MG TAB PO SCH (08:57)
[2021-05-17] MEDS: DULERA 200/5 (MOMETASONE/FORMOTEROL) INHALER IH SCH (08:58)
[2021-05-17] MEDS ORDERED: FUROSEMIDE 40 MG TABLET PO SCH (09:00)
[2021-05-17 09:23] VITALS: O2SAT 98
--- NOTE | 2021-05-17 09:36 | P.DS ---
Admission Date: 05/16/21 Discharge Date: 05/17/21 Disposition: ROUTINE DISCHARGE Discharge Condition: FAIR Reason for Admission: Shortness of breath Consultations: Timothy cardilogy - Problems (1) COPD exacerbation Current Visit: No Status: Acute Brief History of Present Illness: Patient is 66 years of age admitted with COPD/CHF exacerbation Hospital Course: History of recurrent hospital admissions became more short of breath this occurred rather suddenly was unable to exhale admitted here did well was diuresed I advised the patient to use Dulera 2 puffs twice a day instead of the Perforomist at home continue with prednisone at least 10 mg once a day I have also sent a prescription for Lasix in addition patient has some chest pain troponins were negative she has had 2 cardiac caths At the time of discharge patient alert oriented responsive cooperative vital signs stable chest clear cardiovascular system heart sounds normal abdomen soft patient ambulating instructed to follow-up with me in 2 weeks Vital Signs/Physical Exam: Temp Pulse Resp BP Pulse Ox 97.1 F 68 18 143/80 H 96 05/17/21 08:00 05/17/21 08:00 05/17/21 08:00 05/17/21 08:00 05/17/21 08:00 Laboratory Data at Discharge: WBC 6.50 K/uL (4.3-10.9) D 05/17/21 06:01 Hgb 10.5 g/dL (12.0-15.0) L 05/17/21 06:01 Hct 33.9 % (36.0-45.0) L 05/17/21 06:01 Plt Count 248 K/uL (152-406) 05/17/21 06:01 PT 14.7 SECONDS (9.5-12.5) H 05/15/21 18:11 INR 1.28 05/15/21 18:11 Sodium 139 mmol/L (136-145) 05/17/21 06:01 Potassium 3.5 mmol/L (3.5-5.1) 05/17/21 06:01 BUN 39 mg/dL (7-18) H 05/17/21 06:01 Creatinine 1.19 mg/dL (0.55-1.3) 05/17/21 06:01 Glucose 174 mg/dL (74-106) H 05/17/21 06:01 Magnesium 2.3 mg/dL (1.8-2.4) 05/17/21 06:01 Total Bilirubin 0.3 mg/dL (0.2-1.0) 05/17/21 06:01 AST 26 U/L (15-37) 05/17/21 06:01 ALT 26 U/L (12-78) 05/17/21 06:01 Alkaline Phosphatase 73 U/L (45-117) 05/17/21 06:01 Troponin I < 0.02 ng/mL (0.0-0.045) 05/16/21 21:04 Home Medications: Raltegravir Potassium [Isentress] 1 tab PO BID 02/28/12 Sertraline [Zoloft*] 2 tab PO DAILY 09/15/12 Metoprolol Tartrate 100 mg PO BID #60 tablet 02/03/20 Apixaban [Eliquis] 1 tab PO BID 07/30/20 Lisinopril [Zestril] 1 tab PO BID 07/30/20 Emtricitabine/Tenofov Alafenam [Descovy 200-25 mg Tablet] 1 tab PO DAILY 03/05/21 Hydralazine HCl 50 mg PO TID 03/05/21 Amlodipine Besylate 1 tab PO DAILY 03/30/21 Buspirone HCl 30 mg PO BID 03/30/21 Dexlansoprazole [Dexilant] 60 mg PO DAILY 03/30/21 Docusate/Senna [Senokot-S*] 1 tab PO DAILY PRN 03/30/21 Albuterol Inhaler [Ventolin Inhaler*] 2 puff IH BID 03/31/21 LORazepam [Lorazepam] 1 tab PO BID 03/31/21 buPROPion HCL [Bupropion Xl] 1 tab PO DAILY 04/03/21 Hydrocodone 5/APAP 325 [[place] 5/325*] 1 tab PO Q8H PRN 5 Days #15 tab 04/05/21 Ferrous Sulfate [Iron] 325 mg PO DAILY 30 Days #30 tablet 04/15/21 Furosemide [Lasix] 40 mg PO 30 MIN BEFORE HS #30 tablet 05/17/21 Mometasone/Formoterol [Dulera 200 Mcg/5 Mcg Inhaler] 2 puff IH BID 30 Days #120 inhaler 05/17/21 New Medications: Mometasone/Formoterol [Dulera 200 Mcg/5 Mcg Inhaler] 2 puff IH BID 30 Days #120 inhaler Furosemide [Lasix] 40 mg PO 30 MIN BEFORE HS #30 tablet Physician Discharge Instructions: Faxed furosemide to her pharmacy for her to take 40 mg daily/please give her the Dulera from the hospital to take 2 puffs twice a day check if she needs home O2/monitor daily monitor daily weight follow-up with me in 2 weeks Diet: Regular Followup: Unknown,U [Primary Care Provider] -
== END 2021-05-17 13:17 | disposition home or self-care (01) | DRG 291 ==
LOC: ER 17:35 → ERHOLD 20:57 → 2ND 21:10 → OBSVTOIN 05-16 17:44
PROVIDERS: ADMIT Internal Medicine Sleep Medicine; ATTEND Internal Medicine Sleep Medicine
DX: I11.0 Hypertensive heart disease with heart failure (principal); I50.33 Acute on chronic diastolic (congestive) heart failure; J96.21 Acute and chronic respiratory failure with hypoxia; J44.1 Chronic obstructive pulmonary disease with (acute) exacerbation; Z68.41 Body mass index [BMI] 40.0-44.9, adult; I25.10 Atherosclerotic heart disease of native coronary artery without angina pectoris; E78.5 Hyperlipidemia, unspecified; K21.9 Gastro-esophageal reflux disease without esophagitis; E66.9 Obesity, unspecified; I48.0 Paroxysmal atrial fibrillation; Z21 Asymptomatic human immunodeficiency virus [HIV] infection status; Z88.1 Allergy status to other antibiotic agents; Z88.5 Allergy status to narcotic agent; Z88.8 Allergy status to other drugs, medicaments and biological substances; Z87.891 Personal history of nicotine dependence; Z90.49 Acquired absence of other specified parts of digestive tract; Z99.81 Dependence on supplemental oxygen; Z79.01 Long term (current) use of anticoagulants; Z79.899 Other long term (current) drug therapy; Z96.611 Presence of right artificial shoulder joint; Z20.822 Contact with and (suspected) exposure to COVID-19
CPT/HCPCS: 0241U; 36415; 71045; 80048; 80053; 80076; 81003; 81015; 82805; 82947; 83735; 83880; 84484; 85025; 85610; 87077; 87086; 87088; 87186; 93005; 94640; 96374; 96375; 99285; G0378; J1940; J2270; J2405; J2920; J2930; J7512; J7606

== ENCOUNTER 2021-05-27 12:05 | Observation (INO) | payer OTHER ==
--- OUTSIDE RECORDS SUMMARY | 2021-05-27 12:17 | XMS REPORT | Continuity of Care Document ---
:1955 Author Organization [facility] t Address [address] [place] [address] Care Team Providers Name Role Phone Francisco Rahman Primary Care Physician HEMATPOUR Attending Clinician Unavailable Prabhu SANCHEZ Attending Clinician Unavailable Luisana Maharaj NP Attending Clinician Yazmin JENKINS Attending Clinician [facility] Attending Clinician Unavailable Marika Bal Attending Clinician [...] Number Effective Date Expiration Date Christian lloyd [facility] [employer] [id number] 2012 STAR PLUS 00:00:00 Problems Condition Condition Condition Status Onset Resolution Last Treating Co mments Source Name Details Category Date Date Treatment Clinician Date Gastropare Gastropare Disease Active Overview : Methodi sis sis 4-[address] 00:00: [facility] 00 note l might be different from the original. Added automatic ally from request for surgery [id number] Dysphagia Dysphagia Disease Active Overview: Methodi 4-[address] 00:00: g [facility] this [facility] 00 note l might be different from the original. 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:00: [place] shoulder shoulder 00 Medica l arthroplas arthroplas Br anch ty ty Posttrauma Posttrauma Disease Active U nivers tic stress tic stress 09-27 it y of disorder disorder 00:00: [place] [facility] 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 00:00: [place] virus virus 00 Medical (HIV) (HIV) Branch disease disease Bipolar 2 Bipolar 2 Disease Active Uni vers disorder disorder 11-18 ity of 00:00: [place] [facility] Chronic Chronic Disease Active Univers hepatitis hepatitis 11-18 ity of C C 00:00: [place] [facility] Hypertensi Hypertensi Disease Active U nivers on on 11-18 ity of 00:00: [place] [facility] Allergies, Adverse Reactions, Alerts Allergy Allergy Status Severity Reaction(s) Onset Inactive Treating Comm ents Source Name Type Date Date Clinician Metoclop Propensi Active UT ramide ty to 12-12 Health adverse 00:00: reaction 00 s Butorpha Drug Active Unknown - Unive rs nol Allergy See comments 11-25 ity of 00:00: [place] [facility] Sulfamet Propensi Active UT hoxazole [...] Fentanyl Allergy Active Unknown Other UT to 2-08 reaction( Health substanc 00:00: s): e 00 [...] T nol to ns 2-14 reaction( Health substan 00:00: s): e 00 confusion , Hallucina tions, Hallucina tions, Hallucina tions, Unknown - See comments Bactrim Bactrim Active Get [place] Family History Family Member Diagnosis Comments Start Date Stop Date Source Natural father Diabetes [facility] Natural father Other - see comments [facility] Natural [facility] father Hypertension [facility] Natural father Kidney disease Method ist [facility] Natural mother Cancer [facility] Social History Social Habit Start Date Stop Date Quantity Comments Source History [facility] Health Alcohol Comment History [facility] Health Alcohol Std Drinks History [facility] Alcohol Binge Exposure to Not sure [facility] SARS-CoV-2 (event) History of tobacco Smoker [facility] use Hospital Alcohol intake 2021-02-23 2021-02-23 Ex-drinker [facility] 00:00:00 00:00:00 (finding) Cigarettes smoked 2020-12-08 2020-12-[address] current (pack per 00:00:00 00:00:00 Hospita l day) - Reported Cigarette 2020-12-08 2020-12-08 [facility] 00:[facility]00 Hospital Tobacco use and 2020-10-31 2020-10-31 Smokeless tobacco [facility] exposure 00:00:00 00:00:00 non-user History [facility] 2020-10-31 2020-10-31 1 [facility] Alcohol Frequency 00:00:00 00:00:00 Tobacco Comment 2015-02-14 2015-02-14 Smokes approx 1-2 Un iversity of 00:00:00 00:00:00 cigarettes per [place] [facility] porfirio day when she Branch smokes Sex Ass[birth year] [facility] 00:00:00 00:00:00 Smoking Status Start Date Stop Date Source Former smoker 2020-12-08 00:00:00 2020-12-08 00:00:00 [facility] Unknown if ever smoked [facility] Medications Ordered Filled Start Stop Current Ordering Indication Dosage Frequency Signature Comments Components Source Medication Medication Date Date Medication? Clinician (SIG) Name Name LORazepam 1 2021- Yes [id number] 1mg Take 1 Univers mg tablet 05-25 tablet by ity of 00:00: 05:59 mouth 3 [place] 00 :00 (three) Medical times Branch daily as needed (anxiety) for up to 21 days. SERTraline 2020-05 Yes [id number] 200mg Take 2 Univers 100 mg 2-21 tablets by ity of tablet 00:00: mouth [place] 00 daily. Medical Branch busPIRone 2020-05 Yes [id number] 30mg Take 1 Un matt 30 mg 2-21 tablet by ity of tablet 00:00: mouth 2 [place] 00 (two) Medical times Branch daily. buPROPion 2020-05 Yes [id number] 150mg Take 1 U nivers XL 2-21 tablet by ity of (WELLBUTRIN 00:00: mouth [place] XL) 150 mg 00 daily. Medical 24 hr Branch tablet LORazepam 2 2020-05- No [id number] 2mg Take 1 Univers mg tablet 06-28 tablet by ity of 00:00: 00:00 mouth 2 [place] 00 :00 (two) Medical times Branch daily as needed (anxiety). LORazepam 2 2020-05- No [id number] 2mg Take 1 Univers mg tablet 05-25 tablet by ity of 00:00: 00:00 mouth 2 [place] 00 :00 (two) Medical times Branch daily as needed (anxiety). raltegravir Yes [id number] 400mg Take 1 Univers (ISENTRESS) 9- tablet by ity of 400 mg 00:00: mouth 2 [place] tablet 00 (two) Medical times Branch daily. buPROPion 2020- No [id number] 150mg Take 1 Univers XL 01-28- tablet by ity of (WELLBUTRIN 00:00: 00:[place] XL[place] 150 mg 00 :00 daily. Medical 24 hr Branch tablet SERTraline 2020- No [id number] 200mg Take 2 Univers 100 mg 01-28- tablets by ity of tablet 00:00: 00:00 mouth [place] 00 :00 daily. Medical Branch busPIRone 2020- No [id number] 30mg Take 1 U nivers 30 mg 8-30 - tablet by ity of tablet 00:00: 00:00 mouth 2 [place] 00 :00 (two) Medical times Branch daily. metoprolol 2021- No [id number] Take 1 UT tartrate 12-15 tablet Health (Lopressor) 00:00: 05:59 (100 mg 100 MG 00 :00 total) by tablet mouth 2 (two) times a day AND 0.5 tablets (50 mg total) every night. metoprolol 2021- No [id number] Take 1 UT tartrate 7-26 01-23 tablet [...] (Isentress) 7-23 mg by Health 400 MG 08:03: mouth 2 tablet 05 (two) times a [...] area in groin) hydrALAZINE 2020-0 Yes 50mg Q.[id number] Take 50 mg Methodi (APRESOLINE 7-[id number] mouth [address] ) 50 MG [...] Hospita tablet 25 daily. l nystatin-tr Yes [id number] Apply to [facility] iamcinolone 11-25 area(s) 3 ity of cream 00:00: (three) [place] 00 times Medical daily. Branch emtricitabi Yes [id number] Take one [facility] ne-tenofovi 11-25 po daily ity of r alafen 00:00: [place] (DESCOVY) 00 Medical tablet Branch budesonide- 2020- No 1{puff} QD Inhale 1 Methodi formoteroL 6-25 06-[address] (SYMBICORT) 19:37: 00:00 morning. H ospita 160-4.5 02 :00 l mcg/actuati on inhaler hydrALAZINE Yes [id number] 50mg Q.[id number] Take 1 UT (Apresoline - [id number] tablet (50 Health ) 50 MG 00:00: 3D mg total) tablet 00 by mouth 3 (three) times a day. hydrALAZINE 2020- No [id number] 50mg Q.[id number] Take 1 UT (Apresoline 10-31 [id number] tablet (50 Health ) 50 MG 00:00: 04:59 3D mg total) tablet 00 :00 by mouth 3 (three) times a day. hydrALAZINE 2020- No [id number] 50mg Q.[id number] Take 1 UT (Apresoline 10-31 [id number] tablet (50 Health ) 50 MG 00:00: 04:59 3D mg total) tablet 00 :00 by mouth 3 (three) times a day. hydrALAZINE 2020- No [id number] 50mg Q.[id number] Take 1 UT (Apresoline 10-31 [id number] tablet (50 Health ) 50 MG 00:00: 04:59 3D mg total) tablet 00 :00 by mouth 3 (three) times a day. hydrALAZINE 2020- No [id number] 50mg Q.[id number] Take 1 UT (Apresoline 10-31 [id number] tablet (50 Health ) 50 MG 00:00: 04:59 3D mg total) tablet 00 :00 by mouth 3 (three) times a day. Breztri 2020-0 Yes UT Aerosphere 10-29 Health 160-9-4.8 00:00: MCG/ACT 00 aerosol Breztri 2020-0 Yes [place] Aerosphere 10-29 Health 160-9-4.8 00:00: MCG/ACT 00 aerosol Breztri 2020-0 Yes [place] Aerosphere 10-29 Health 160-9-4.8 00:00: MCG/ACT 00 aerosol Breztri 2020-0 Yes [place] Aerosphere 10-29 [facility] 160-9-4.8 00:00: MCG/ACT 00 aerosol Breztri 2020-0 Yes [place] Aerosphere 6-09 Health 160-9-4.8 00:00: MCG/ACT 00 [...] MG 5-30 Health tablet 00:00: 00 sertraline 2020-0 Yes 200mg 200 mg. UT (Zoloft) 5-30 Health 100 MG 00:00: tablet 00 lisinopril 2020-0 Yes UT 40 MG 5-30 Health tablet 00:00: 00 sertraline 2020-0 Yes 200mg 200 mg. UT (Zoloft) 5-30 Health 100 MG 00:00: tablet 00 lisinopril 2020-0 Yes UT 40 MG 5-30 Health tablet 00:00: 00 sertraline 2020-0 Yes 200mg 200 mg. UT (Zoloft) 5-30 Health 100 MG 00:00: tablet 00 lisinopril 2020-0 Yes UT 40 MG 5-30 Health tablet 00:00: 00 sertraline 2020-0 Yes UT (Zoloft) 5-30 Health 100 MG 00:00: tablet 00 lisinopril 2020-0 Yes UT 40 MG 5-30 Health tablet 00:00: 00 sertraline 0 Yes 200mg 200 mg. UT (Zoloft) 5-30 Health 100 MG 00:00: tablet 00 mupirocin Yes UT (Bactroban) 10-17 Health 2 % 00:00: ointment 00 mupirocin 0 Yes UT (Bactroban) 10-17 Health 2 % 00:00: ointment 00 mupirocin 0 Yes UT (Bactroban) 10-17 Health 2 % 00:00: ointment 00 mupirocin 0 Yes UT (Bactroban) 10-17 Health 2 % 00:00: ointment 00 mupirocin 0 Yes UT (Bactroban) 10-17 Health 2 % 00:00: ointment 00 nystatin 2020- No [id number] Q.25D Take 5 mL Methodi (MYCOSTATIN 10-06- (500,000 st ) 100,000 00:00: 04:59 Units [...] Eliquis 5 2020-0 Yes UT MG tablet -05 Health 00:00: 00 Eliquis 5 2020-0 Yes UT MG tablet 5-05 Health 00:00: 00 Eliquis 5 2020-0 Yes UT MG tablet -05 Health 00:00: 00 Eliquis 5 2020-0 Yes UT MG tablet -05 Health 00:00: 00 Eliquis 5 2020-0 Yes UT MG tablet -05 Health 00:00: 00 pantoprazol 2020-0 Yes UT e 4-20 Health (ProtoNix) 00:00: 40 MG EC 00 tablet pantoprazol 2021-0 Yes UT e 4-20 Health [...] Take 20 mg M ethodi (BUSPAR) 10 4-12 04-[address] MG tablet 13:50: 00:00 every Hospit a 39 :00 morning. l Amlodipine No Notes: Memor ia 4-10 (Same as: l 14:00: Norvasc) [place] 00 emtricitabi No Notes: Caesar lisa ne 200 MG / 4-10 (Same as: l tenofovir 14:00: Descovy) Herm ariel alafenamide 00 Non-formul 25 MG Oral nancy Tablet [Descovy] pantoprazol No Notes: Caesar lisa e 4-10 Tablet l 14:00: should not [place] 00 be chewed or crushed. (Same as: Protonix) Amiodarone No Notes: Memor ia 4-10 (Same as: l 14:00: Cordarone) Marty 00 Amlodipine No Notes: Memor ia 4-10 (Same as: l 14:00: Norvasc) [place] 00 emtricitabi No Notes: Caesar lisa ne [...] ia 4-10 (Same as: l 14:00: Norvasc) [place] 00 emtricitabi No Notes: Caesar lisa ne 200 MG / 4-10 (Same as: l tenofovir 14:00: Descovy) Herm ariel alafenamide 00 Non-formul 25 MG Oral nancy Tablet [Descovy] Sertraline No Notes: Memor ia 4-10 (Same as: l 14:00: Zoloft) [place] 00 pantoprazol No Notes: Caesar lisa e 4-10 Tablet l 14:00: should not [place] 00 be chewed or crushed. (Same as: Protonix) Amiodarone No Notes: Memor ia 4-10 (Same as: l 14:00: Cordarone) [place] Amlodipine No Notes: Memor ia 4-10 (Same [...] e 4-10 Tablet l 14:00: should not [place] 00 be chewed or crushed. (Same as: Protonix) Amiodarone No Notes: Memor ia 4-10 (Same as: l 14:00: Cordarone) [place] Amlodipine No Notes: Memor ia 4-10 (Same as: l 14:00: Norvasc) [place] 00 emtricitabi No Notes: Caesar lisa ne 200 MG / 4-10 (Same as: l tenofovir 14:00: Descovy) Herm ariel alafenamide 00 Non-formul 25 MG Oral nancy Tablet [Descovy] Sertraline No Notes: Memor ia 4-10 (Same as: l 14:00: Zoloft) [place] 00 pantoprazol No Notes: Caesar lisa e [...] M emoria 4-10 interfere l 02:00: w/enteral [place] feeds - Take 1 hr before or [...] 0.9% 4-10 (Same as: l 02:00: BD [place] Posiflush) Eliquis No Notes: Memoria 4-10 Same [...] 0.9% 4-10 (Same as: l 02:00: BD [place] Posiflush) Eliquis No Notes: Memoria 4-10 Same as: l 02:00: Eliquis [place] 00 Hydralazine No Notes: Caesar lisa Hydrochlori [...] M emoria 4-10 interfere l 02:00: w/enteral [place] 00 feeds - Take 1 hr before or 2 hr after antacids, dairy pdt, meals & minerals - On empty stomach. For patients unable to swallow tablet, dissolve in 10mL - 30mL of water or juice and stir before giving. (Same As: Carafate) Saline No Notes: Memoria Flush 0.9% 4-10 (Same as: l 02:00: BD [place] 00 Posiflush) Eliquis No Notes: Memoria 4-10 Same as: l 02:00: Eliquis [place] Hydralazine No Notes: Caesar lisa Hydrochlori 4-10 (Same as: l de 50 MG 02:00: Apresoline Her mitchell Oral Tablet 00 ) May interfere w/enteral feedings Take With Food Sucralfate No Notes: May M emoria 4-10 interfere l 02:00: w/enteral [place] 00 feeds - Take 1 hr before or 2 hr after antacids, dairy pdt, meals & minerals - On empty stomach. For patients unable to swallow tablet, dissolve in 10mL - 30mL of water or juice and stir before giving. (Same As: Carafate) Saline No Notes: Memoria Flush 0.9% 4-10 (Same as: l 02:00: BD [place] 00 Posiflush) Eliquis No Notes: Memoria 4-10 Same as: l 02:00: Eliquis [place] 00 Hydralazine No Notes: Caesar lisa Hydrochlori 4-10 (Same as: l de 50 MG 02:00: Apresoline Her mitchell Oral Tablet 00 ) May interfere w/enteral feedings Take With Food Sucralfate No Notes: May M emoria 4-10 interfere l 02:00: w/enteral [place] 00 feeds - Take 1 hr before [...] not exceed l #3 00:12: 4gm/day of [place] acetaminop hen. (Same as: Tylenol with Codeine [...] not exceed l #3 00:12: 4gm/day of [place] acetaminop hen. (Same as: Tylenol with Codeine # 3) acetaminoph No Notes: Do M emoria en-codeine 4-10 not exceed l #3 00:12: 4gm/day of [place] acetaminop hen. (Same as: Tylenol with Codeine # 3) Buspirone 2020-0 No Notes: Memori a 08-29 (Same As: l 22:00: BuSpar) Lisinopril 2020-0 No 40 mg, 1 Mem oria 4- tab, l 22:00: Route: PO, Marty 00 [...] oria - tab, l 22:00: Route: PO, [place] 00 Drug form: TAB, BID, Dosing Weight 97.273, kg, Start date: 08/29/20 17:00:00 CDT, Duration: 30 day, Stop date: 09/28/20 9:00:00 CDT metoprolol 2021-0 No 100 mg, 1 Me moria tartrate 4-09 tab, l 22:00: Route: PO, [place] 00 Drug form: TAB, BID, Dosing Weight [...] tartrate 4- tab, l 22:00: Route: PO, [place] 00 Drug form: TAB, BID, Dosing Weight [...] oria 4-09 tab, l 22:00: Route: PO, [place] 00 Drug form: TAB, BID, Dosing Weight [...] tartrate 4-09 tab, l 22:00: Route: PO, [place] 00 Drug form: TAB, BID, Dosing Weight [...] tartrate 4-09 tab, l 22:00: Route: PO, [place] 00 Drug form: TAB, BID, Dosing Weight [...] oria -09 tab, l 22:00: Route: PO, [place] 00 Drug form: TAB, BID, Dosing Weight [...] Notes: Memoria 4-09 (Same l 17:07: as:MORPhin [place] 00 e Sulfate) Morphine No Notes: Memoria 4-09 (Same l 17:07: as:MORPhin [place] 00 e Sulfate) Morphine No Notes: Memoria 4-09 (Same l 17:07: as:MORPhin [place] 00 e Sulfate) Morphine No Notes: Memoria 4-09 (Same l 17:07: as:MORPhin [place] 00 e Sulfate) Morphine No Notes: Memoria 4-09 (Same l 17:07: as:MORPhin [place] 00 e Sulfate) Morphine No Notes: Memoria [...] 08-29 Drug form: l 15:40: INJ, ONCE, [place] 00 Stop date: 08/29/20 10:40:00 CDT neostigmine [...] tab, PO, l oral 15:27: Daily, # [place] enteric 00 30 tab, 0 coated Refill(s), tablet Pharmacy: [facility] 149, 162.56, cm, 08/29/20 5:30:00 CDT, Height, 97.273, kg, 08/29/20 5:30:00 CDT, Weight pantoprazol Yes 40 mg = 1 M emoria e 40 mg 4-09 tab, PO, l oral 15:27: Daily, # [place] enteric 00 30 tab, 0 coated Refill(s), tablet Pharmacy: [facility] 149, 162.56, cm, 08/29/20 5:30:00 CDT, Height, 97.273, kg, 08/29/20 5:30:00 CDT, Weight pantoprazol 2021-0 Yes 40 mg = 1 M emoria e 40 mg 4-09 tab, PO, l oral 15:27: Daily, # [place] enteric 00 30 tab, 0 coated Refill(s), tablet Pharmacy: [facility] 149, 162.56, cm, 08/29/20 5:30:00 CDT, Height, 97.273, kg, 08/29/20 5:30:00 CDT, Weight pantoprazol 2021-0 Yes 40 mg = 1 M emoria e 40 mg 4-09 tab, PO, l oral 15:27: Daily, # [place] enteric 00 30 tab, 0 coated Refill(s), tablet Pharmacy: [facility] [place], 162.56, cm, 08/29/20 5:30:00 CDT, Height, 97.273, kg, 08/29/20 5:30:00 CDT, Weight pantoprazol 2021-0 Yes 40 mg = 1 M emoria e 40 mg 4-09 tab, PO, l oral 15:27: Daily, # [place] enteric 00 30 tab, 0 coated Refill(s), tablet Pharmacy: [facility] 149, 162.56, cm, 08/29/20 5:30:00 CDT, Height, 97.273, kg, 08/29/20 5:30:00 CDT, Weight pantoprazol 2021-0 Yes 40 mg = 1 M emoria e 40 mg 4-09 tab, PO, l oral 15:27: Daily, # [place] enteric 00 30 tab, 0 coated Refill(s), tablet Pharmacy: [facility] 149, 162.56, cm, 08/29/20 5:30:00 CDT, Height, 97.273, kg, 08/29/20 5:30:00 CDT, Weight pantoprazol 2021-0 Yes 40 mg = 1 M emoria e 40 mg 4-09 tab, PO, l oral 15:27: Daily, # [place] enteric 00 30 tab, 0 coated Refill(s), tablet Pharmacy: [facility] 149, 162.56, cm, 08/29/20 5:30:00 CDT, Height, 97.273, kg, 08/29/20 5:30:00 CDT, Weight pantoprazol 2020-0 No 40 mg = 1 M emoria e 40 mg 4-09 tab, PO, l oral 15:26: Daily, # [place] enteric 00 30 tab, 0 coated Refill(s) tablet sucralfate 2020-0 Yes 1 gm = 1 Mem oria 1 g oral 4-09 tab, PO, l tablet 15:26: Q12H, # 28 Skylar nn 00 tab, 0 Refill(s), Pharmacy: [place] [address], 162.56, cm, 08/29/20 5:30:00 CDT, Height, 97.273, kg, 08/29/20 5:30:00 CDT, Weight pantoprazol 2020-0 No 40 mg = 1 M emoria e 40 mg 4-09 tab, PO, l oral 15:26: Daily, # [place] enteric 00 30 tab, 0 coated Refill(s) tablet sucralfate 2020-0 Yes 1 gm = 1 Mem oria 1 g oral 4-09 tab, PO, l tablet 15:26: Q12H, # 28 Skylar nn 00 tab, 0 Refill(s), Pharmacy: [place] [address], 162.56, cm, 08/29/20 5:30:00 CDT, Height, 97.273, kg, 08/29/20 5:30:00 CDT, Weight pantoprazol 2020-0 No 40 mg = 1 M emoria e 40 mg 4-09 tab, PO, l oral 15:26: Daily, # [place] enteric 00 30 tab, 0 coated Refill(s) tablet sucralfate 2020-0 Yes 1 gm = 1 Mem oria 1 g oral 4-09 tab, PO, l tablet 15:26: Q12H, # 28 Skylar nn 00 tab, 0 Refill(s), Pharmacy: [place] [address], 162.56, cm, 08/29/20 5:30:00 CDT, Height, 97.273, [...] Skylar nn 00 tab, 0 Refill(s), Pharmacy: [place] [address], 162.56, cm, 08/29/20 5:30:00 CDT, Height, 97.273, kg, 08/29/20 5:30:00 CDT, Weight pantoprazol 2020-0 No 40 mg = 1 M emoria e 40 mg 4-09 tab, PO, l oral 15:26: Daily, # [place] enteric 00 30 tab, 0 coated Refill(s) tablet sucralfate 2020-0 Yes 1 gm = 1 Mem oria 1 g oral 4-09 tab, PO, l tablet 15:26: Q12H, # 28 Skylar nn 00 tab, 0 Refill(s), Pharmacy: [place] [address], 162.56, cm, 08/29/20 5:30:00 CDT, Height, 97.273, [...] Skylar nn 00 tab, 0 Refill(s), Pharmacy: [facility] 149, 162.56, cm, 08/29/20 5:30:00 [...] Skylar nn 00 tab, 0 Refill(s), Pharmacy: [facility] 149, 162.56, cm, 08/29/20 5:30:00 CDT, Height, 97.273, kg, 08/29/20 5:30:00 CDT, Weight Saline No Notes: Memoria Flush 0.9% 4-09 (Same as: l 15:25: BD [place] 00 Posiflush) Lorazepam No Notes: Memori a 4-09 (Same as: l 15:25: Ativan) Marty Saline No Notes: Memoria Flush 0.9% 4-09 (Same as: l 15:25: BD [place] 00 Posiflush) Lorazepam No Notes: Memori a 4-09 (Same as: l 15:25: Ativan) [place] Saline No Notes: Memoria Flush 0.9% 4-09 (Same as: l 15:25: BD [place] 00 Posiflush) Saline No Notes: Memoria Flush 0.9% 4-09 (Same as: l 15:25: BD [place] 00 Posiflush) Lorazepam No Notes: Memori a 4-09 (Same as: l 15:25: Ativan) [place] 00 Lorazepam No Notes: Memori a 4-09 (Same as: l 15:25: Ativan) [place] Saline No Notes: Memoria Flush 0.9% 4-09 (Same as: l 15:25: BD [place] 00 Posiflush) Lorazepam No Notes: Memori a 4-09 (Same as: l 15:25: Ativan) [place] 00 Saline No Notes: Memoria Flush 0.9% 4-09 (Same as: l 15:25: BD [place] 00 Posiflush) Lorazepam No Notes: Memori a [...] Memori a 08-29 Route: l 14:01: IVP, [place] 00 Q5Min, Dosing Weight 97.273, kg, PRN [...] ia 08-29 Route: l 14:01: IVP, ONCE, [place] 00 Dosing Weight 97.273, kg, PRN Nausea & Vomiting, Start date: 08/29/20 9:01:00 CDT Labetalol 1-0 No 10 mg, Memori a 08-29 Route: l 14:01: IVP, [place] 00 Q5Min, Dosing Weight 97.273, kg, PRN [...] oria ne 08-29 Route: l 14:01: IVP, [place] 00 Q5Min, Dosing Weight 97.273, kg, PRN Pain Score 7-10, Start date: 08/29/20 9:01:00 CDT, Duration: 4 doses or times, Stop date: Limited # of times Flumazenil 1-0 No 0.2 mg, Caesar lisa 08-29 Route: l 14:01: IVP, PRN, [place] Dosing Weight 97.273, kg, PRN Benzodiaze pine [...] ia 08-29 Route: l 14:01: IVP, ONCE, [place] 00 Dosing Weight 97.273, kg, PRN Nausea & Vomiting, Start date: 08/29/20 9:01:00 CDT Labetalol 1-0 No 10 mg, Memori a 08-29 Route: l 14:01: IVP, [place] 00 Q5Min, Dosing Weight 97.273, kg, PRN [...] Memori a 08-29 Route: l 14:01: IVP, [place] 00 Q2MIN, Dosing Weight 97.273, kg, PRN Narcotic Reversal, Start date: 08/29/20 9:01:00 CDT, Duration: 8 doses or times, Stop date: Limited # of times Ondansetron 1-0 No 4 mg, Memor ia 08-29 Route: l 14:01: IVP, ONCE, [place] 00 Dosing Weight 97.273, kg, PRN Nausea & Vomiting, Start date: 08/29/20 9:01:00 CDT Labetalol 2021-0 No 10 mg, Memori a 08-29 Route: l 14:01: IVP, [place] 00 Q5Min, Dosing Weight 97.273, kg, PRN Elevated BP, Start date: 08/29/20 9:01:00 CDT, Duration: 5 doses or times, Stop date: Limited # of times Acetaminoph 2021-0 No 1,000 mg, M emoria en 08-29 Route: PO, l 14:01: Drug form: [place] 00 TAB, ONCE, Dosing Weight 97.273, kg, [...] Memori a 08-29 Route: l 14:01: IVP, [place] 00 Q2MIN, Dosing Weight 97.273, kg, PRN Narcotic Reversal, Start date: 08/29/20 9:01:00 CDT, Duration: 8 doses or times, Stop date: Limited # of times Ondansetron 2021-0 No 4 mg, Memor ia 08-29 Route: l 14:01: IVP, ONCE, [place] 00 Dosing Weight 97.273, kg, PRN Nausea & Vomiting, Start date: 08/29/20 9:01:00 CDT Labetalol 2021-0 No 10 mg, Memori a 08-29 Route: l 14:01: IVP, [place] 00 Q5Min, Dosing Weight 97.273, kg, PRN Elevated BP, Start date: 08/29/20 9:01:00 CDT, Duration: 5 doses or times, Stop date: Limited # of times Acetaminoph 2021-0 No 1,000 mg, M emoria en 08-29 Route: PO, l 14:01: Drug form: [place] 00 TAB, ONCE, Dosing Weight 97.273, kg, [...] oria ne 08-29 Route: l 14:01: IVP, [place] 00 Q5Min, Dosing Weight 97.273, kg, PRN Pain Score 7-10, Start date: 08/29/20 9:01:00 CDT, Duration: 4 doses or times, Stop date: Limited # of times Flumazenil 2020-0 No 0.2 mg, Caesar lisa 08-29 Route: l 14:01: IVP, PRN, [place] 00 Dosing Weight 97.273, kg, PRN Benzodiaze pine Reversal, Initial dose, Start date: 08/29/20 9:01:00 CDT, Duration: 30 day, Stop date: 09/28/20 9:00:00 CDT Naloxone 1-0 No 0.4 mg, Memori a 08-29 Route: l 14:01: IVP, [place] 00 Q2MIN, Dosing Weight 97.273, kg, PRN [...] 08-29 Route: PO, l 14:01: Drug form: [place] 00 TAB, ONCE, Dosing Weight 97.273, kg, [...] lisa 08-29 Route: l 14:01: IVP, PRN, [place] 00 Dosing Weight 97.273, kg, PRN Benzodiaze [...] ONCE, Stop date: 08/29/20 8:52:00 CDT rocuronium 2021-0 No Route: IV, M emoria (ANES) 08-29 [...] Drug form: l 10 13:15: INJ, Start [place] microgram date: 08/29/20 8:15:00 CDT, Stop date: 08/29/20 9:15:00 CDT norepinephr 2020-0 No Route: IV, Memoria ine (ANES) 08-29 Drug form: l 10 13:15: INJ, Start [place] microgram date: 08/29/20 8:15:00 CDT, Stop date: 08/29/20 9:15:00 CDT norepinephr 2020-0 No Route: IV, Memoria ine (ANES) 08-29 Drug form: l 10 13:15: INJ, Start [place] microgram date: 08/29/20 8:15:00 CDT, Stop date: [...] 2020-0 No Route: IV, Memor ia Chloride 4- Total l 0.9% IV 12:30: Volume: Marty [...] 4-09 Total l 0.9% IV 12:30: Volume: [place] (ANES) 1000 00 1,000, mL Start date: 08/29/20 7:30:00 CDT, Stop date: 08/29/20 8:30:00 CDT Sodium 2021-0 No Route: IV, Memor ia Chloride 4-09 Total l 0.9% IV 12:30: Volume: Marty (ANES) 1000 00 1,000, mL Start date: 08/29/20 7:30:00 CDT, Stop date: 08/29/20 8:30:00 CDT Sodium 2021-0 No Route: IV, Memor ia Chloride 4-09 Total l 0.9% IV 12:30: Volume: [place] (ANES) 1000 00 1,000, mL Start date: 08/29/20 7:30:00 CDT, Stop date: 08/29/20 8:30:00 CDT Sodium 2021-0 No Route: IV, Memor ia Chloride 4-09 Total l 0.9% IV 12:30: Volume: Marty (ANES) 1000 00 1,000, mL Start date: 08/29/20 7:30:00 CDT, Stop date: 08/29/20 8:30:00 CDT Sodium 2021-0 No Route: IV, Memor ia Chloride 4-09 Total l 0.9% IV 12:30: Volume: [place] (ANES) 1000 00 1,000, mL Start date: [...] PO, l Hydrochlori 11:42: Q24H, # 30 [place] de 150 MG 00 tab, 0 Extended Refill(s) Release Tablet 24 HR Yes 150 mg = 1 Memori a Bupropion 4-09 tab, PO, l Hydrochlori 11:42: Q24H, # 30 Marty de 150 MG 00 tab, 0 Extended Refill(s) Release Tablet 24 HR Yes 150 mg = 1 Memori a Bupropion 4-09 tab, PO, l Hydrochlori 11:42: Q24H, # 30 [place] de 150 MG 00 tab, 0 Extended Refill(s) Release Tablet 24 HR Yes 150 mg = 1 Memori a Bupropion 4-09 tab, PO, l Hydrochlori 11:42: Q24H, # 30 Marty de 150 MG 00 tab, 0 Extended Refill(s) Release Tablet 24 HR Yes 150 mg = 1 Memori a Bupropion 4-09 tab, PO, l Hydrochlori 11:42: Q24H, # 30 [place] de 150 MG 00 tab, 0 Extended Refill(s) Release Tablet 24 HR 2020-0 Yes 150 mg = 1 Memori a Bupropion 4-09 tab, PO, l Hydrochlori 11:42: Q24H, # 30 [place] de 150 MG 00 tab, 0 Extended Refill(s) Release Tablet 24 HR 2020-0 Yes 150 mg = 1 Memori a Bupropion 4-09 tab, PO, l Hydrochlori 11:42: Q24H, # 30 [place] de 150 MG 00 tab, 0 Extended [...] 08-29 Q12H, tab, l Tablet 11:41: 0 [place] [Eliquis] 00 Refill(s), For Atrial Fibrilatio n [...] 4- Q12H, tab, l Tablet 11:41: 0 [place] [Eliquis] 00 Refill(s), For Atrial Fibrilatio n apixaban 5 2020-0 Yes 5 mg, PO, Me moria MG Oral 4-09 Q12H, tab, l Tablet 11:41: 0 [place] [Eliquis] 00 Refill(s), For Atrial Fibrilatio n AMIODarone 2020-0 Yes 200 mg = 1 M emoria 200 mg oral 4-09 tab, PO, l tablet 11:38: Daily, # Marty 00 90 tab, 3 Refill(s) AMIODarone 2020-0 Yes 200 mg = 1 M emoria 200 mg oral 4-09 tab, PO, l tablet 11:38: Daily, # [place] 00 90 tab, 3 Refill(s) AMIODarone 2020-0 [...] tab, PO, l tablet 11:38: Daily, # [place] 00 90 tab, 3 Refill(s) AMIODarone 2020-0 [...] 09/28/20 5:29:00 CDT, 2.13, m2, 0 normal 1-0 No 1,000 mL, Memori a saline 0.9% [...] it y of mg tablet 08:18: (two) [place] 30 times Medical daily. Branch amiodarone Yes 100mg Take 100 Un matt 100 mg 3-17 mg by ity of tablet 08:18: mouth [place] 30 daily. Medical Branch predniSONE Yes UT [...] 15mg QD Take 15 mg Methodi (REMERON) 308 03-[address] 15 MG 15:16: [...] awake for 30 days. budesonide 2019-05 No [id number] .5mg Q.5D Take 2 mL [facility]i (PULMICORT) [...] day for 30 days. acetaminoph 2019-05- [place] [id number] 1{tbl} Q6H Take 1 Methodi en-codeine 07-04 [...] Univers 90 4-14 ity of mcg/actuati 00:00: [place] on inhaler 00 Medical Branch albuterol Yes [...] 50mg QD Take 50 mg UT (Apresoline - 06-11 by mouth 1 H ealth ) [...] (Dyazide) 00 37.5-25 MG capsule metoprolol 2020-0 1- No 100mg Q12H Take 100 U T [...] Immunizations Ordered Filled Immunization Date Status Comments [facility] e Immunization Name Name PFIZER COVID-19 2020-07-23 Completed [facility] MRNA VACCINATION 00:00:00 [facility] PFIZER COVID-19 2020-07-02 Completed [facility] MRNA VACCINATION 00:00:00 [facility] Influenza Virus 2017-03-08 Completed Universit y of Vaccine 00:00:00 [facility] Influenza Virus 2014-01-30 Completed Universit y of Vaccine (3+ yrs) 00:00:00 [facility] dical Branch Pneumococcal 13 2014-01-30 Completed Universit y of Conjugate, PCV13 00:00:00 [facility] dical (Prevnar 13) Branch Pneumococcal 2012-02-16 Completed University o f Polysaccharide, 00:00:00 [facility] ica PPSV23 (PNEUMOVAX) Branch Influenza Virus 2012-02-16 Completed Universit y of Vaccine 00:00:00 [facility] PPD (TB) 2012-02-16 Completed University of 00:00:00 [facility] Hep B, Adol or Pedi 2011-09-01 Completed Unive rsity of Dosage 00:00:00 [facility] Hep B, Adol or Pedi 2011-03-17 Completed Unive rsity of Dosage 00:00:00 [facility] Influenza Virus 2011-02-10 Completed Universit y of Vaccine 00:00:00 [facility] Hep B, Adol or Pedi 2011-02-10 Completed Unive rsity of Dosage 00:00:00 [facility] PPD (TB) 2010-11-18 Completed University of 00:00:00 [facility] TDAP (ADACEL) 2010-11-18 Completed University of VACCINE 00:00:00 [facility] HEPATITIS A 2004-03-02 Completed University of 00:00:00 [facility] HEPATITIS A 2003-08-01 Completed University of 00:00:00 [facility] Pneumococcal 2001-10-04 Completed University o f Polysaccharide, 00:00:00 [facility] ical PPSV23 (PNEUMOVAX) [place] PPD (TB) 2001-10-04 Completed University of 00:00:00 [facility] Vital Signs Vital Name Observation Time [...] h BMI 2020-10-31 13:22:00 37.59 [facility] 2021-01-28 14:08:00 141 mm[Hg] [facility]iver [facility] Diastolic blood 2021-01-28 14:08:00 79 mm[Hg] Unive rsity of [facility] Heart rate 2021-01-28 14:08:00 56 /min [facility] Respiratory rate 2021-01-28 14:02:00 18 /min [facility] Body height 2021-01-28 14:02:00 162.6 cm [facility] Body weight 2021-01-28 14:02:00 99.111 kg [facility] BMI 2021-01-28 14:02:00 37.51 kg/m2 [facility] Systolic blood 2020-12-08 15:48:00 125 mm[Hg] Method [facility] pressure Diastolic blood 2020-12-08 15:48:00 76 mm[Hg] [facility] pressure Heart rate 2020-12-08 15:48:00 64 /min [facility] Body temperature 2020-12-08 15:48:00 36.61 Amina [facility] Respiratory rate 2020-12-08 15:48:00 17 /min [facility] Body height 2020-12-08 15:48:00 162.6 cm [facility] Body weight 2020-12-08 15:48:00 98.884 kg [facility] BMI 2020-12-08 15:48:00 37.42 kg/m2 [facility] Oxygen saturation in 2020-12-08 15:48:00 97 /min [facility] Arterial blood by Pulse oximetry Body temperature 2020-12-02 14:14:00 36.83 [facility]a [facility] Respitory Rate 2020-08-30 13:00:00 Memori al Marty Systolic (mm Hg) 2020-08-30 13:00:00 Caesar rial Marty Diastolic (mm Hg) 2020-08-30 13:00:00 Mem orial [place] Systolic (mm Hg) 2020-08-30 11:00:00 Caesar rial Marty Diastolic (mm Hg) 2020-08-30 11:00:00 Mem orial [place] Temperature Oral (F) 2020-08-30 11:00:00 98.4 F [facility] [place] Respitory Rate 2020-08-30 11:00:00 Memori al [place] Respitory Rate 2020-08-30 10:00:00 Memori al [place] Systolic (mm Hg) 2020-08-30 10:00:00 Caesar rial [place] Diastolic (mm Hg) 2020-08-30 10:00:00 Mem orial [place] Temperature Oral (F) 2020-08-30 00:00:00 96.9 F [facility] Temperature Oral (F) 2020-08-29 11:26:00 97.6 F [facility] Height 2020-08-29 10:30:00 162.56 cm [facility] Weight 2020-08-29 10:30:00 [facility] BMI Calculated 2020-08-29 10:30:00 Memori al [place] Oxygen saturation in 2020-01-26 18:00:00 92 /min University Arterial blood by [facility] Pulse oximetry Branch Procedures Procedure Date / Time Performing Source Performed Clinician GASTROINTESTINAL PANEL 2020-12-08 Eliseo Arce 22:21:00 Hospital XR ABDOMEN 1 VW 2020-12-08 Eliseo Arce 18:06:32 Hospital OR FL < 1 HOUR 2020-09-05 Eliseo Arce 22:39:00 [facility] SURGICAL PATHOLOGY REQUEST 2020-09-05 Eliseo Arce Metho dist 21:54:00 Hospital XR CHEST 1 VW PORTABLE 2020-09-05 Eliseo Arce 19:55:00 Hospital VA AN ELECTIVE ENDOTRACHEAL AIRWAY 2020-09-05 Lynnette Floodastal Jean 16:47:23 V. Hospital EGD, INTRAOPERATIVE 2020-09-05 Eliseo Arce 16:27:00 Hospital PARTIAL THROMBOPLASTIN TIME (PTT) 2020-09-05 Ted Maharaj 15:04:00 [facility] PROTHROMBIN TIME WITH INR 2020-09-05 Meisenlion, Method ist 15:04:00 [facility] HC COMPLETE BLD COUNT W/AUTO DIFF 2020-09-01 Ramiro Mitchell 15:45:00 Hospital PROTHROMBIN TIME WITH INR 2020-09-01 Ramiro Mitchell ist 15:45:00 Hospital PARTIAL THROMBOPLASTIN TIME (PTT) 2020-09-01 Ramiro Mitchell 15:45:00 Hospital ECG 12-LEAD 2020-09-01 Ramiro Mitchell 15:31:26 [facility] COVID-19 QUALITATIVE RT-PCR 2020-09-01 Ramiro Mitchell Meth odist 15:24:00 Hospital COMPREHENSIVE METABOLIC PANEL 2020-09-01 Ramiro Mitchell Me thodist 15:23:00 Hospital ESTIMATED GFR 2020-09-01 Ramiro Mitchell 15:23:00 Hospital NM GASTRIC EMPTYING 2020-08-27 Eliseo Arce 19:05:[address] CHEST WO CONTRAST ABDOMEN WO 2020-08-21 Eliseo Arce CONTRAST 15:20:00 [facility] FL ESOPHAGRAM SINGLE CONTRAST 2020-08-13 Eliseo Arce thodist 15:25:00 [facility] [id number] 2020-05-07 Ted Engel 00:00:00 Historical Hospital BASIC METABOLIC PANEL 2020-05-02 Pau Ott 15:08:00 Hospital HC COMPLETE BLD COUNT W/AUTO DIFF 2020-05-02 Pau Ott 15:08:00 Hospital MAGNESIUM LEVEL 2020-05-02 Pau Ott 15:08:00 Hospital ESTIMATED GFR 2020-05-02 Eliseo Arce 15:08:00 [facility] CBC HEMOGRAM 2020-05-01 Idalmis Montilla 11:20:00 Hospital BASIC METABOLIC PANEL 2020-05-01 Idalmis Montilla 10:00:00 Hospital ESTIMATED GFR 2020-05-01 Idalmis [place] 10:00:00 Hospital HEPATIC FUNCTION PANEL 2020-05-01 Idalmis Montilla Methodis t 10:00:00 Hospital THYROID STIMULATING HORMONE 2020-05-01 Idalmis [place] Met hodist 10:00:00 Hospital US DUPLEX VENOUS UPPER EXTREMITY 2020-04-30 Ceasar Patel [facility] BILATERAL 23:36:00 Hospital XR CHEST 2 VW 2020-04-30 Pau Ott 22:18:36 Hospital MIDLINE INSERTION ATTEMPT - 2020-04-30 Asim, Blesilda Me thodist UNSUCCESSFUL 17:14:34 Hospital XR ABDOMEN 1 VW PORTABLE 2020-04-[address] 15:45:00 [facility] ECG 12-LEAD 2020-04-30 Pau Ott 15:06:58 [facility] VA AN ELECTIVE ENDOTRACHEAL AIRWAY 2020-04-28 Carlee Malloy Reg grady [facility] 20:57:57 Hospital REPAIR, HIATAL HERNIA, 2020-04-28 Eliseo Arce LAPAROSCOPIC, ROBOT-ASSISTED 19:38:00 [facility] pital ESOPHAGOGASTRODUODENOSCOPY (EGD) 2020-04-28 Eliseo Arce 19:38:00 [facility] POC GLUCOSE 2020-04-28 Eliseo Arce 15:01:00 [facility] SURGICAL PATHOLOGY REQUEST 2020-04-28 Eliseo Arce Metho dist 14:27:00 [facility] BASIC METABOLIC PANEL 2020-04-28 Ted Gonzalez 08:11:00 [facility] HC COMPLETE BLD COUNT W/AUTO DIFF 2020-04-28 Ted Gonzalez 08:11:00 [facility] MAGNESIUM LEVEL 2020-04-28 Ted Gonzalez 08:11:00 [facility] PHOSPHORUS LEVEL 2020-04-28 Ted Gonzalez 08:11:00 [facility] PROTHROMBIN TIME WITH INR 2020-04-28 Jignesh Gonzalezt 08:11:00 [facility] PARTIAL THROMBOPLASTIN TIME (PTT) 2020-04-28 Ted Gonzalez 08:11:00 [facility] ESTIMATED GFR 2020-04-28 Chihara, Ray [facility] 08:11:00 Hospital TYPE AND SCREEN 2020-04-28 Eliseo Arce 08:11:00 Hospital POC GLUCOSE 2020-04-28 Eliseo Arce [facility] 05:38:00 Hospital POC GLUCOSE 2020-04-28 Eliseo Arce 02:14:00 Hospital TTE COMPLETE, WO CONTRAST, W 2020-04-27 Orthodoxy, iNeves Castro Mn thodist DOPPLER ([id number]) 21:00:00 Hospital POC GLUCOSE 2020-04-27 Eliseo Arceist 18:30:00 Hospital BASIC METABOLIC PANEL 2020-04-27 Eliseo Arce [facility] 12:34:00 Hospital ESTIMATED GFR 2020-04-27 Eliseo Arce [facility] 12:34:00 Hospital POC GLUCOSE 2020-04-27 Eliseo Arce 03:18:00 Hospital ECG 12-LEAD 2020-04-27 Nieves Hydeist 02:24:31 Hospital COVID-19 QUALITATIVE RT-PCR 2020-04-26 Vitaly Gonzalez odist 21:44:00 [facility] HC COMPLETE BLD COUNT W/AUTO DIFF 2020-04-26 Carlos [facility] 09:05:00 [facility] BASIC METABOLIC PANEL 2020-04-26 Carlos [facility] 09:05:00 [facility] MAGNESIUM LEVEL 2020-04-26 Carlos [facility] 09:05:00 [facility] PHOSPHORUS LEVEL 2020-04-26 Carlos, [facility] 09:05:00 [facility] CD 4 SUBSET 2020-04-26 Eliseo Arce 09:05:00 Hospital ESTIMATED GFR 2020-04-26 Eliseo Arce [facility] 09:05:00 Hospital MISCELLANEOUS REFERRAL TEST 2020-04-26 Eliseo Arce Meth odist 09:05:00 Hospital POTASSIUM LEVEL 2020-04-26 Eliseo Arce 03:04:00 Hospital HC COMPLETE BLD COUNT W/AUTO DIFF 2020-04-26 Amirashmi [facility] 00:51:00 [facility] BASIC METABOLIC PANEL 2020-04-26 Amirashmi [facility] 00:51:00 [facility] MAGNESIUM LEVEL 2020-04-26 Amirkhosravi, [facility] 00:51:00 [facility] PHOSPHORUS LEVEL 2020-04-26 Carlos, [facility] 00:51:00 [facility] ESTIMATED GFR 2020-04-26 Eliseo Arce [facility] 00:51:00 Hospital [place] ESOPHAGRAM DOUBLE CONTRAST 2020-04-25 Yazmin Eliseo Me thodist 17:31:[address] CHEST WO CONTRAST ABDOMEN WO 2020-04-21, Yen-Te [facility] CONTRAST PELVIS WO CONTRAST 14:15:34 [facility] HC COMPLETE BLD COUNT W/AUTO DIFF 2020-04-21, Yen[facility] 13:22:00 [facility] COMPREHENSIVE METABOLIC PANEL 2020-04-21, Yen-Te Me thodist 13:22:00 [facility] LIPASE LEVEL 2020-04-21, [facility]en[facility] 13:22:00 [facility] LACTIC ACID LEVEL, SEPSIS - NOW 2020-04-21, Yen[facility]Te [facility] AND REPEAT 2X EVERY 3 HOURS 13:22:00 [facility] ital ESTIMATED GFR 2020-04-21, Yen-Te [facility] 13:22:00 [facility] Plan of Care Planned Activity Planned Date Details Comments Source Future Scheduled Test DIABETES: RETINAL EYE [facility] EXAM [code = DIABETES: RETINAL EYE EXAM] Future Scheduled Test DIABETIC FOOT EXAM [facility] [code = DIABETIC FOOT EXAM] Future Scheduled Test Screening for malignant [facility] neoplasm of cervix (procedure) [code = 365890330] Future Scheduled Test BREAST CANCER SCREENING [facility] [code = BREAST CANCER SCREENING] Future Scheduled Test COLONOSCOPY SCREENING [facility] [code = COLONOSCOPY SCREENING] Future Scheduled Test SHINGLES VACCINES (#1) [facility] [code = SHINGLES VACCINES (#1)] Future Scheduled Test COVID-19 VACCINE ( - [facility] Pfizer risk 3-dose series) [code = COVID-19 VACCINE (3 - Pfizer risk 3-dose series)] Future Scheduled Test INFLUENZA VACCINE [code [facility] = INFLUENZA VACCINE] Future Scheduled Test 65+ PNEUMOCOCCAL [facility] VACCINE (4 of 4) [code = 65+ PNEUMOCOCCAL VACCINE (4 of 4)] Encounters Start End Encounter Admission Attending Care Care Encounter Source Date/Time Date/Time Type Type Clinicians Facility Department ID 2021-04-28 Outpatient HEMATPOUR, [facility] [id number] [place] 11:21:22 [facility] 2020-12-12 Outpatient HEMATPOUR, [facility] [id number] [place] 08:16:46 [facility] 2020-10-31 Outpatient HEMATPOUR, [facility] [id number] [place] 09:44:50 [facility] 2020-09-30 Outpatient HEMATPOUR, [facility] [id number] [place] 13:16:03 [facility] 2021-04-28 2021-04-28 Telephone Hematpour, [facility]TP 6400 1.2.840.114 [id number] [place] 00:00:00 00:00:[address] [id number] Health 9.2.7.2.686 [id number] 1 2021-01-19 2021-01-19 Telephone Prabhu, 1.2.840.1 [id number] 2100 [id number] Methodi 00:00:00 00:00:[address] 3.430.2.7 Hospit a .3.537935 l .8 2020-12-12 2020-12-12 Office Hematpour, [facility] 6400 1.2.840.114 12 [id number] 07:42:02 08:18:[address] 350.1.13.58 9.2.7.2.686 [id number] 1 2020-12-12 2020-12-12 Office Hematpour, [facility] 6400 1.2.840.114 12 [id number] [place] 07:42:02 08:18:[address] 350.1.13.58 Health 9.2.7.2.686 [id number] 1 2020-12-09 2020-12-09 Telephone Carol Ann, 1.2.840.1 [id number] Methodi 00:00:00 00:00:00 Sarai CorbinChelsie 15581.1.1 316 s t 3.430.2.7 Hospit a .3.095496 l .8 2020-12-08 2020-12-08 [facility], 1.2.840.1 [id number] 2100 [id number] Methodi 12:35:54 23:59:00 Encounter Ray 82764.1.[address] 3.430.2.7 Hospit a .3.998061 l .8 2020-12-08 2020-12-08 Lab Yazmin, 1.2.840.1 [id number] Methodi 17:20:50 17:25:[address] 3.430.2.7 Hospit a .3.998029 l .8 2020-12-08 2020-12-08 Office [facility], 1.2.840.1 [id number] Methodi 09:55:34 11:39:56 Visit Ray [address]4533.1.[address] 3.430.2.7 Hospit a .3.134315 l .8 2020-12-08 2020-12-08 Travel 1.2.840.1 1.2.487.027 [id number] Methodi 00:00:00 00:00:[address] 3.430.2.7 0.2.7.3.698 spita .3.631912 084.8 l .8 2020-12-02 2020-12-02 Carriage Rider [facility] 1.2.840.114 [id number] 10:20:06 10:36:19 Visit HEALTH 350.1.13.10 [facility] 4.2.7.2.686 [id number] [facility] 2020-11-25 2020-11-25 Office [facility] 1.2.840.114 [id number] 11:06:30 11:58:14 Visit Robbi Hairston 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 350.1.13.10 [employer] 4.2.7.2.686 MATERNAL [id number] & CHILD [address] [place] [address] 2020-11-25 2020-11-25 [facility] 1.2.050.672 [id number] 00:00:00 00:00:00 [facility] 350.1.13.10 [facility] 4.2.7.2.686 [id number] 2020-11-25 2020-11-25 Telephone Devin [facility] 1.2.996.325 [id number] 00:00:00 00:00:00 Robbi Marika PHYSICIAN 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 350.1.13.10 [employer] 4.2.7.2.686 MATERNAL [id number] & CHILD [address] [place] [address] 2020-11-14 2020-11-14 Abstract Rodas, 1.2.840.1 [id number] Methodi 00:00:00 00:00:[address] 3.430.2.7 Hospit a .3.800161 l .8 2020-11-14 2020-11-14 Telephone Rodas, 1.2.840.1 [id number] [id number] Methodi 00:00:00 00:00:[address] 3.430.2.7 Hospit a .3.115530 l .8 2020-11-07 2020-11-07 Telephone Diana, [facility]TP 6400 1.2.840.114 [id number] 00:00:00 00:00:[address] 350.1.13.58 9.2.7.2.686 [id number] 1 2020-11-07 2020-11-07 Telephone Diana Agustina [facility] 6400 1.2.840.11 4 [id number] [place] 00:00:00 00:00:[address] 350.1.13.58 Health 9.2.7.2.686 [id number] 1 2020-10-31 2020-10-31 Office Hematporay UTP 6400 1.2.840.114 12 [id number] [place] 07:54:00 09:45:[address] 350.1.13.58 Health 9.2.7.2.686 [id number] 1 2020-10-30 2020-10-30 Abstract Rody Maguire [facility] 6400 1.2.840.1 14 [id number] [place] 00:00:00 00:00:[address] 350.1.13.58 Health 9.2.7.2.686 [id number] 1 2020-10-27 2020-10-27 Telephone Yazmin, 1.2.840.3 [id number] 21 [id number] Methodi 00:00:00 00:00:[address] 3.430.2.7 Hospit a .3.855410 l .8 2020-10-24 2020-10-24 Telephone Clark, 1.2.840.1 [id number] [id number] Methodi 00:00:00 00:00:[address] 3.430.2.7 Hospit a .3.691482 l .8 2020-10-06 2020-10-12 Telemedici Yazmin, 1.2.840.1 [id number] 21 [id number] Methodi 15:26:54 00:08:46 ne Ray 37017.1.[address] 3.430.2.7 Hospit a .3.936155 l .8 2020-09-30 2020-09-30 Telephone Yazmin, 1.2.840.4 [id number] 21 [id number] Methodi 00:00:00 00:00:[address] 3.430.2.7 Hospit a .3.145590 l .8 2020-09-21 2020-09-21 Travel 1.2.840.1 1.2.431.259 [id number] [id number] Methodi 00:00:00 00:00:[address] 3.430.2.7 0.2.7.3.698 Ho spita .3.242850 084.8 l .8 2020-09-01 2020-09-09 Lab Paula, Min 1.2.840.1 [id number] Methodi 10:13:59 01:05:[address] 3.430.2.7 Hospit a .3.788174 l .8 2020-09-06 2020-09-06 [facility] 1.2.840.1 [id number] [id number] Methodi 17:42:30 23:59:[address] 3.430.2.7 Hospit a .3.113689 l .8 2020-09-06 2020-09-06 [facility], 1.2.840.1 [id number] 2100 [id number] Methodi 16:50:00 17:41:00 Encounter Ray [address]487.1.[address] 3.430.2.7 Hospit a .3.302493 l .8 2020-09-05 2020-09-05 [facility], 1.2.840.1 [id number] 2100 [id number] Methodi 09:17:00 19:45:00 Encounter Ray [address]38.1.[address] 3.430.2.7 Hospit a .3.733820 l .8 2020-09-05 2020-09-05 Surgery [facility], 1.2.840.1 [id number] Methodi 11:30:00 13:15:[address] 3.430.2.7 Hospit a .3.002301 l .8 2020-09-05 2020-09-[address] [facility], 1.2.840.1 [id number] Methodi 11:27:00 12:20:00 Event Saraswathi 88183.1.1 243 s t V. 3.430.2.7 Hospit a .3.818594 l .8 2020-09-05 2020-09-05 Travel 1.2.840.1 1.2.658.244 [id number] [id number] Methodi 00:00:00 00:00:[address] 3.430.2.7 0.2.7.3.698 Ho spita .3.878608 084.8 l .8 2020-09-04 2020-09-04 Telephone Carol Ann, 1.2.840.1 [id number] Methodi 00:00:00 00:00:00 Sarai Corbin. 06818.1.1 762 s t 3.430.2.7 Hospit a .3.752051 l .8 2020-09-02 2020-09-02 Telephone Carol Ann, 1.2.840.9 [id number] Methodi 00:00:00 00:00:00 Sarai Corbin. 95610.1.1 344 s t 3.430.2.7 Hospit a .3.972791 l .8 2020-09-01 2020-09-01 [facility] 1.2.840.1 [id number] Methodi 08:42:53 09:50:51 Visit Ray 63340.1.[address] 3.430.2.7 Hospit a .3.064545 l .8 2020-09-01 2020-09-01 Telephone Yazmin, 1.2.840.8 [id number] 21 [id number] Methodi 00:00:00 00:00:[address] 3.430.2.7 Hospit a .3.912263 l .8 2020-09-01 2020-09-01 Travel 1.2.840.1 1.2.598.202 [id number] [id number] Methodi 00:00:00 00:00:[address] 3.430.2.7 0.2.7.3.698 spita .3.960365 084.8 l .8 2020-08-29 2020-08-30 Bedded [facility] [id number] [facility] 10:20:00 14:10:00 Outpatient r Marty 00 [facility] 2020-08-29 2020-08-30 Outpatient HEMATPOUR, [facility] CAR [address] [facility] 05:20:00 09:10:00 BEVERLY 2020-08-27 2020-08-27 [facility], 1.2.840.1 [id number] 2100 012616 Methodi 09:55:15 23:59:00 Encounter Ray [address]462.1.[address] 3.430.2.7 Hospit a .3.048313 l .8 2020-08-27 2020-08-27 Travel 1.2.840.1 1.2.944.466 5868 [id number] Methodi 00:00:00 00:00:[address] 3.430.2.7 0.2.7.3.698 Ho spita .3.648432 084.8 l .8 2020-08-21 2020-08-21 Travel 1.2.840.1 1.2.417.147 0015 197819 Methodi 00:00:00 00:00:[address] 3.430.2.7 0.2.7.3.698 Ho spita .3.606875 084.8 l .8 2020-08-19 2020-08-19 Telephone Meli, 1.2.840.1 [id number] 387 [id number] Methodi 00:00:00 00:00:[address] 3.430.2.7 Hospit a .3.404211 l .8 2020-08-19 2020-08-19 Travel 1.2.840.1 1.2.105.577 0605 586111 Methodi 00:00:00 00:00:[address] 3.430.2.7 0.2.7.3.698 Ho spita .3.348483 084.8 l .8 2020-08-18 2020-08-18 Orders Carol Ann, 1.2.840.2 [id number] 2 [id number] Methodi 00:00:00 00:00:00 Only Sarai Lieberman 27158.1.1 410 [address] t 3.430.2.7 Hospit a .3.344927 l .8 2020-08-18 2020-08-18 Travel 1.2.840.1 1.2.400.982 0667 106685 Methodi 00:00:00 00:00:[address] 3.430.2.7 0.2.7.3.698 Ho spita .3.329128 084.8 l .8 2020-08-15 2020-08-15 Abstract Rodas, 1.2.840.1 [id number] 56147 Methodi 00:00:00 00:00:[address] 3.430.2.7 Hospit a .3.712833 l .8 2020-07-02 2020-08-06 Clinical 1.2.840.1 [id number] 72832 Methodi 10:40:46 01:45:[address] 3.430.2.7 Hospit a .3.217634 l .8 2020-07-30 2020-07-30 Travel 1.2.840.1 1.2.858.911 0662 715015 Methodi 00:00:00 00:00:[address] 3.430.2.7 0.2.7.3.698 Ho spita .3.643197 084.8 l .8 2020-07-28 2020-07-28 Office [facility], 1.2.840.1 [id number] 62008 44349 Methodi 08:35:45 10:11:52 Visit Ray 19806.1.[address] 3.430.2.7 Hospit a .3.639604 l .8 2020-07-28 2020-07-28 Telephone Rodas, 1.2.840.1 [id number] 2099 [id number] Methodi 00:00:00 00:00:[address] 3.430.2.7 Hospit a .3.401318 l .8 2020-07-28 2020-07-28 Travel 1.2.840.1 1.2.140.042 1488 040995 Methodi 00:00:00 00:00:[address] 3.430.2.7 0.2.7.3.698 Ho spita .3.341369 084.8 l .8 2020-07-25 2020-07-25 Telephone Carol Ann, 1.2.840.7 [id number] Methodi 00:00:00 00:00:00 Sarai Lieberman 78204.1.1 314 s t 3.430.2.7 Hospit a .3.887223 l .8 2020-07-25 2020-07-25 Travel 1.2.840.1 1.2.242.366 4932 683606 Methodi 00:00:00 00:00:[address] 3.430.2.7 0.2.7.3.698 Ho spita .3.049563 084.8 l .8 2020-07-23 2020-07-23 Clinical Tori, 1.2.840.1 [id number] 50938 06745 Methodi 08:39:40 08:44:40 Support Hoang 03850.1.[address] P. 3.430.2.7 Hospit a .3.800184 l .8 2020-07-23 2020-07-23 Travel 1.2.840.1 1.2.513.994 0382 554672 Methodi 00:00:00 00:00:[address] 3.430.2.7 0.2.7.3.698 Ho spita .3.610743 084.8 l .8 2020-07-11 2020-07-11 Travel 1.2.840.1 1.2.146.163 3272 688548 Methodi 00:00:00 00:00:[address] 3.430.2.7 0.2.7.3.698 Ho spita .3.576979 084.8 l .8 2020-07-02 2020-07-02 Telephone Yazmin, 1.2.840.7 [id number] Methodi 00:00:00 00:00:[address] 3.430.2.7 Hospit a .3.691011 l .8 2020-07-02 2020-07-02 Travel 1.2.840.1 1.2.327.354 3578 390722 Methodi 00:00:00 00:00:[address] 3.430.2.7 0.2.7.3.698 Ho spita .3.606119 084.8 l .8 2020-06-23 2020-06-23 Office Yazmin, 1.2.840.1 [id number] 06048 67621 Methodi 09:36:17 11:00:44 Visit Ray 13575.1.[address] 3.430.2.7 Hospit a .3.927764 l .8 2020-06-23 2020-06-23 Telephone Clark, 1.2.840.1 [id number] 2099 [id number] Methodi 00:00:00 00:00:[address] 3.430.2.7 Hospit a .3.468760 l .8 2020-06-23 2020-06-23 Travel 1.2.840.1 1.2.582.188 9778 786830 Methodi 00:00:00 00:00:[address] 3.430.2.7 0.2.7.3.698 Ho spita .3.276563 084.8 l .8 2020-06-09 2020-06-09 Telephone Yazmin, 1.2.840.1 [id number] Methodi 00:00:00 00:00:[address] 3.430.2.7 Hospit a .3.069126 l .8 2020-06-06 2020-06-06 Refill Quinn, 1.2.840.1 [id number] 4981 Methodi 00:00:00 00:00:00 Eh Lemus 48495.1.[address] 3.430.2.7 Hospit a .3.324382 l .8 2020-06-03 2020-06-03 Telephone Yazmin, 1.2.840.3 [id number] Methodi 00:00:00 00:00:[address] 3.430.2.7 Hospit a .3.950073 l .8 2020-06-02 2020-06-02 Telephone Yazmin, 1.2.840.6 [id number] Methodi 00:00:00 00:00:[address] 3.430.2.7 Hospit a .3.769825 l .8 2020-05-13 2020-05-13 Orders [facility], 1.2.840.1 [id number] 2099 211399 Methodi 00:00:00 00:00:00 Only Historical 95084.1.1 108 s t 3.430.2.7 Hospit a .3.757073 l .8 2020-05-09 2020-05-09 Telephone [facility], 1.2.840.1 [id number] Methodi 00:00:00 00:00:00 Sarai Lieberman 27157.1.1 660 s t 3.430.2.7 Hospit a .3.773708 l .8 2020-05-09 2020-05-09 [facility]9 [id number] Methodi 00:00:00 00:00:[address] 3.430.2.7 Hospit a .3.242015 l .8 2020-05-08 2020-05-08 [facility] 1.2.840.7 [id number] Methodi 00:00:00 00:00:[address] 3.430.2.7 Hospit a .3.387591 l .8 2020-05-07 2020-05-07 Telephone [facility], 1.2.840.6 [id number] 21 [id number] Methodi 00:00:00 00:00:[address] 3.430.2.7 Hospit a .3.710781 l .8 2020-05-05 2020-05-05 Telephone [facility], 1.2.840.5 [id number] 21 [id number] Methodi 00:00:00 00:00:[address] 3.430.2.7 Hospit a .3.186570 l .8 2020-04-25 2020-05-03 [facility], 1.2.840.1 [id number] 2100 736311 Methodi 17:33:00 13:39:00 Encounter Ray [address]1004.1.[address] 3.430.2.7 Hospit a .3.770805 l .8 2020-04-28 2020-04-28 Anesthesia Tomas Pinon 1.2.840.1 [id number] Methodi 13:38:00 19:40:00 Event Hossein Justinealeshia Hummel 93638.1.[address] 3.430.2.7 Hospit a .3.670507 .8 2020-04-28 2020-04-28 [facility], 1.2.840.1 [id number] 62392 83175 Methodi 13:00:00 17:10:[address] 3.430.2.7 Hospit a .3.429320 l .8 2020-04-25 2020-04-25 [facility], 1.2.840.1 [id number] 2100 392094 Methodi 10:00:00 17:32:00 Encounter Ray [address]391.1.[address] 3.430.2.7 Hospit a .3.155535 l .8 2020-04-25 2020-04-25 [facility], 1.2.840.1 [id number] 09775 45642 Methodi 11:43:50 13:44:26 Visit Ray 81624.1.[address] 3.430.2.7 Hospit a .3.397257 l .8 2020-04-25 2020-04-25 Travel 1.2.840.1 1.2.972.484 5261 907217 Methodi 00:00:00 00:00:[address] 3.430.2.7 0.2.7.3.698 Ho spita .3.981377 084.8 l .8 2020-04-24 2020-04-24 Prep for Carol Ann, 1.2.840.1 [id number] 2 [id number] Methodi 00:00:00 00:00:00 Surgery Sarai Corbin. 52308.1.1 524 s t 3.430.2.7 Hospit a .3.518514 l .8 2020-04-22 2020-04-22 Telephone Meli, 1.2.840.1 [id number] 903 [id number] Methodi 00:00:00 00:00:[address] 3.430.2.7 Hospit a .3.641701 l .8 2020-04-22 2020-04-22 Travel 1.2.840.1 1.2.279.012 3014 794710 Methodi 00:00:00 00:00:[address] 3.430.2.7 0.2.7.3.698 Ho spita .3.466135 084.8 l .8 2020-04-21 2020-04-21 [facility] [id number] 2 [id number] Methodi 06:51:00 10:43:[address] 3.430.2.7 Hospit a .3.722016 l .8 2020-04-21 2020-04-21 Orders Carol Ann, 1.2.840.1 [id number] 21 [id number] Methodi 00:00:00 00:00:00 Only Sarai Corbin. 62681.1.1 550 s t 3.430.2.7 Hospit a .3.831116 l .8 2020-04-16 2020-04-16 Telephone Meisenbach, 1.2.840.1 [id number] Methodi 00:00:00 00:00:00 Sarai Corbin. 97326.1.1 673 s t 3.430.2.7 Hospit a .3.201154 l .8 2020-04-10 2020-04-10 Telephone Yazmin, 1.2.840.2 [id number] Methodi 00:00:00 00:00:[address] 3.430.2.7 Hospit a .3.739308 l .8 2020-04-07 2020-04-07 Telephone Nahum, 1.2.840.1 [id number] 2099 557281 Methodi 00:00:00 00:00:[address] 3.430.2.7 Hospit a .3.995091 l .8 2020-04-01 2020-04-01 Orders Provider, 1.2.840.1 [id number] 2100 391860 Methodi 00:00:00 00:00:00 Only Historical 70579.1.1 049 s t 3.430.2.7 Hospit a .3.305754 l .8 2020-03-31 2020-03-31 Travel 1.2.840.1 1.2.526.100 2754 100017 Methodi 00:00:00 00:00:[address] 3.430.2.7 0.2.7.3.698 spita .3.905163 084.8 l .8 2020-03-27 2020-03-27 Telephone Paula, Min 1.2.840.1 [id number] Methodi 00:00:00 00:00:[address] 3.430.2.7 Hospit a .3.764180 l .8 Results Test Description Test Time Test Comments Results Result Comments Source Gastrointestinal panel 2020-12-09 04:35:05 Test Item Value Reference Range Interpretation Comme nts Adenovirus 40/41 PCR (test code = Not Detected Specimen InformationSpecimen 6551) Source: StoolSp ecimen Site: Nonpreserved Astrovirus PCR [...] Rotavirus PCR (test code = Not Detected 0483962) Salmonella PCR (test code = 4783) Not [...] PCR (test code = Not Detected 7124) [facility] At6425-85-22 19:17:40EXAMINATION: XR ABDOMEN 1 VW CLINICAL HISTORY: [...] clips are noted.[id number] [place] [facility] 1 Wdyo1966-78-31 19:41:02EXAMINATION: OR FL < 1 HOUR C-arm fluoroscopy was requested in OR. Location: [facility] OR room 6 Procedure: EGD WITH BOTOX INJECTION INTO THE PYLORUS, ENDOFLIP, ON TABLE ESOPHAGRAM (N/A ) Start: 1140 End:1222 Fluoro Time: .19sec Dose: 7.8mGy Tech: A.B IMPRESSION: Intraoperative fluoroscopic images. Radiologist was not present during the examination.Separate operative report will be issued by the physician performing the procedure. [id number]_LT03Hm Interface, Radiology Results 10/08/2020 2:44 PM CDT EXAMINATION: OR FL < 1 HOURC- arm fluoroscopy was requested in OR. Location: [facility] OR room 6 Procedure: EGD WITH BOTOX INJECTION INTO THE PYLORUS, ENDOFLIP, ON TABLE ESOPHAGRAM (N/A ) Start: 1140 End:1222 FluoroTime: .19sec Dose: 7.8mGy Tech: A.BIMPRESSION:Intraoperative fluoroscopic images. Radiologist was not present during the examination.Separate operative report will be issued by the physician performingthe procedure.[id number]_LT03[facility] 2020-09-08 19:30:47 Test Item Value Reference Range Interpretation Comments Case number (test [id number] code = 0698725) Surgical pathology See link below for PDF report (test code = Lab Report 2255) Result status (test This is Supplemental code = 7269345) Report for [id number] [facility] 1 Vw Povxuqem5419-34-47 23:06:58EXAMINATION: XR CHEST 1 VW PORTABLE HISTORY: [...] enlarged, similar to prior. Bilateral shoulder arthroplasties. [facility]-[id number] Interface, Radiology Results Incoming - 09/06/2020 6:09PM [...] silhouette is enlarged, similar to prior.Bilateral shoulder arthroplasties.[facility]-[id number] Memorial HospitalZedxgictAapxyl9990-57-35 16:47:23Kirit Flood MD 09/05/2020 11:[address]: [...] RSI: Yes Number of Attempts at Approach: [address] [place] [address] 12 sfca6641-37-51 23:21:56 Test Item Value Reference Range Interpretation [...] T wave abnormality, consider anterior ischemia-Abnormal ECG- [facility] qualitative EYL9263-40-39 22:48:41 Test Item Value Reference Range Interpretation Comments Interpretation (test Negative results do code = 6380304) not preclude 2019-nCoV infection and should not be used as the sole basis for treatment or other patient management decisions. Negative results must be combined with clinical observations, patient history, and epidemiological information. COVID-19 qualitative Not-Detected Not-Detected RT-PCR result (test code = 04707-3) COVID-19 qualitative See link below for C ase Number: RT-PCR (test code = PDF Lab Report [id number]) [facility]2021-04-09 16:31:00 Test Item Value Reference Range Interpretation Comments POC Activated Clotting Time (test code 153 s = POC Activated Clotting Time) [facility]WRJYLKDUJN7595-[facility]-05 16:31:00 Test Item Value Reference Range Interpretation Comments POC Activated Clotting Time (test code 153 s = POC Activated Clotting Time) [facility]manDjznfknUCLALXEPFI0876-58-00 16:31:00 Test Item Value Reference Range Interpretation Comments POC Activated Clotting Time (test code 153 s = POC Activated Clotting Time) [facility]manWlarcgfPVLPJSSEIS9351-79-33 16:31:00 Test Item Value Reference Range Interpretation Comments POC Activated Clotting Time (test code 153 s = POC Activated Clotting Time) [facility]manWqxfvnaGRUBIQLALD7139-31-44 16:31:00 Test Item Value Reference Range Interpretation Comments POC Activated Clotting Time (test code 153 s = POC Activated Clotting Time) [facility]manXnnikypOIUQVJRMQJ1491-54-58 16:31:00 Test Item Value Reference Range Interpretation Comments POC Activated Clotting Time (test code 153 s = POC Activated Clotting Time) [facility]manIszwrkcIKBFGVKEQO5409-81-52 16:31:00 Test Item Value Reference Range Interpretation Comments POC Activated Clotting Time (test code 153 s = POC Activated Clotting Time) [place] 476681-04-09 14:37:00 Test Item Value Reference Range Interpretation Comments POC Activated Clotting Time (test code 454 s = POC Activated Clotting Time) [facility]manHajhzefLWUCHUWDOX4118-33-96 14:37:00 Test Item Value Reference Range Interpretation Comments POC Activated Clotting Time (test code 454 s = POC Activated Clotting Time) [facility]manKsawznnQENUEGETAE1441-84-08 14:37:00 Test Item Value Reference Range Interpretation Comments POC Activated Clotting Time (test code 454 s = POC Activated Clotting Time) [facility]manWnehgqyTORYRDZFMT1793-33-58 14:37:00 Test Item Value Reference Range Interpretation Comments POC Activated Clotting Time (test code 454 s = POC Activated Clotting Time) [facility]manQrdovtxINNRTDCELM2730-85-93 14:37:00 Test Item Value Reference Range Interpretation Comments POC Activated Clotting Time (test code 454 s = POC Activated Clotting Time) [facility]manNknawcpQWGDNEGTGH7537-57-04 14:37:00 Test Item Value Reference Range Interpretation Comments POC Activated Clotting Time (test code 454 s = POC Activated Clotting Time) [facility]manPykcucyTHCJOJJEFJ4892-39-23 14:37:00 Test Item Value Reference Range Interpretation Comments POC Activated Clotting Time (test code 454 s = POC Activated Clotting Time) [facility]manKouepepCXMFSAIWZD6770-43-39 14:13:00 Test Item Value Reference Range Interpretation Comments POC Activated Clotting Time (test code 354 s = POC Activated Clotting Time) [facility]manGwwzzlxNOOGBIXFDK2325-95-11 14:13:00 Test Item Value Reference Range Interpretation Comments POC Activated Clotting Time (test code 354 s = POC Activated Clotting Time) [facility]manFcyayipUXRJZYGHQK5262-80-04 14:13:00 Test Item Value Reference Range Interpretation Comments POC Activated Clotting Time (test code 354 s = POC Activated Clotting Time) [facility]manBprdgtuJPSJAOJAVF2349-81-34 14:13:00 Test Item Value Reference Range Interpretation Comments POC Activated Clotting Time (test code 354 s = POC Activated Clotting Time) [facility]manVnbnozgIZDXZWZYQA4571-64-41 14:13:00 Test Item Value Reference Range Interpretation Comments POC Activated Clotting Time (test code 354 s = POC Activated Clotting Time) [facility]manYwzaegdKHZKFMBOIC0953-92-58 14:13:00 Test Item Value Reference Range Interpretation Comments POC Activated Clotting Time (test code 354 s = POC Activated Clotting Time) [facility]manZcoktdsIEEIGMDDGE1454-19-62 14:13:00 Test Item Value Reference Range Interpretation Comments POC Activated Clotting Time (test code 354 s = POC Activated Clotting Time) [facility] YXGUXUI0139-01-92 10:37:00Negative (08/29/20 5:37 AM) [facility] YAIKW4991-83-95 10:37:10273Leijwbll HermannCHEM PANEL 2020-08-29 10:37:0028[facility]annCHE[facility] SCTHN5250-93-02 10:37:001.01[facility]annCHE[facility] ZGQMI7038-00-94 10:37:14137Nlztvzsf [facility]annCHEM QTYEC3590-56-61 10:37:003.8[facility]annCHE[facility] GRWZK8052-17-75 10:37:24536Hssjzpla HermannCHEM DQIXL6763-59-17 10:37:0028[facility]annCHEM EMTVQ4218-74-96 10:37:009.8 [facility]CHE[facility] FOPLK5585-63-54 10:37:0011.8[facility]annCHEM PANEL 2020-08-29 10:37:0059[facility]annCHEM EHQHU9514-89-27 10:37:002.9[facility] ZjdfoyfVLKHLXDYBS6472-08-55 10:37:006.8[facility] RhodykxLSMDZFTUJH2865-08-40 10:37:004.47[facility] BzpfqzcEFQZUXAOYG4174-33-86 10:37:0010.6[facility] EAJSDPTKRI0122-46-44 10:37:0034.0[facility] VmfxhweIRISRNBRYT9130-81-48 10:37:00 76.1[facility] NhyhzomTWFDOXDJPM5765-72-51 10:37:00 Test Item Value Reference Range Interpretation Comments MCH (test code = MCH) 23.8 pg 27.0-31.0 [facility] DwgrnuqGUFNBWWQRT5361-54-21 10:37:0031.3[facility]annHEMATOLOGY 2020-08-29 10:37:0018.2[facility] MvoryemJSFTCJMSZN7990-30-10 10:37:81576Geievhem HfsjujkDUBHIKHBQD1988-91-45 10:37:007.5[facility] EbkieruODDGMPMEME3474-90-25 10:37:00 Test Item Value Reference Range Interpretation Comments PT (test code = PT) 12.8 s 12.0-14.7 [facility] UygqpizYCURBCNGKQ5563-83-50 10:37:00 Test Item Value Reference Range Interpretation Comments INR (test code = INR) 0.97 1 0.85-1.17 [facility] EhvaqmjMDGAHEPCAF9939-55-82 10:37:00 Test Item Value Reference Range Interpretation Comments PTT (test code = PTT) 25.0 s 22.9-35.8 [facility] FraodsjMMURXCRDPS9627-14-57 10:37:0070.5[facility]annHEMATOLOGY 2020-08-29 10:37:0018.8[facility] HfnbvwhCLXQAIAQJR1704-95-83 10:37:009.5[facility] CqlxlmfPRJOAVVENO1639-12-35 10:37:000.9[facility] HczsmskKQOMLAQXAO1555-30-78 10:37:000.3[facility] WzzmrzdALSAPFDEFU0434-89-45 10:37:004.8[facility] OZEOCEKKBM3518-55-55 10:37:001.3[facility] AyhyeupHDFTESABCT3420-89-09 10:37:000.6 [facility] RmbjeeeXIZWRLYVBZ4705-18-49 10:37:000.1[facility]annHEMATOLOGY 2020-08-29 10:37:001+ *ABN*(08/29/20 5:37 AM)[facility] AkwujpaZIDFMFOFEP6014-44-76 10:37:00Not Detected (08/29/20 5:37 AM)[facility]annBLOOD BANK RESULTS 2020-08-29 10:37:00Negative (08/29/20 5:37 AM)[facility]annCHEM UCYLK2501-57-43 10:37:05481Hzykequr HermannCHEM ARKDO3178-70-19 10:37:0028[facility]annCHEM TANWO2376-80-43 10:37:001.01[facility]annCHEM JOMFL1811-88-27 10:37:44603 [facility]CHE[facility] OAMEF3535-52-56 10:37:003.8[facility]annCHEM PANEL 2020-08-29 10:37:80071Wuebudjm HermannCHEM KDHDJ0645-89-57 10:37:0028[facility]annCHEM AEQCF3037-60-47 10:37:009.8[facility]annCHE[facility] UCLUF7145-51-72 10:37:0011.8[facility]annCHEM LAVPT3176-91-49 10:37:0059[facility]annCHEM XCKZC8699-93-55 10:37:002.9[facility] KekswmiVVELSVYDBA8615-90-81 10:37:006.8 [facility] KpkuakhFDOJIPTFAY5880-71-92 10:37:004.47[facility]annHEMATOLOGY 2020-08-29 10:37:0010.6[facility] IpowljsLVIULUTHUJ1002-78-49 10:37:0034.0[facility] CdylsdjPAHOEPVQGH0813-34-04 10:37:0076.1[facility] DqlsflrTLRAIRNWMR8071-64-53 10:37:00 Test Item Value Reference Range Interpretation Comments MCH (test code = MCH) 23.8 pg 27.0-31.0 [facility] XbednhzHARSIYFMDW8038-93-85 10:37:0031.3[facility]annHEMATOLOGY 2020-08-29 10:37:0018.2[facility] MdnsqkwZDRUIBCDGH1313-77-88 10:37:01352Tbxhtjmy GwgiymbVGORGLELJY9573-31-71 10:37:007.5[facility] UcoxwohLOZVMJXYEF0919-12-90 10:37:00 Test Item Value Reference Range Interpretation Comments PT (test code = PT) 12.8 s 12.0-14.7 [facility] FirtbmiTKEIYBVXLE6468-93-04 10:37:00 Test Item Value Reference Range Interpretation Comments INR (test code = INR) 0.97 1 0.85-1.17 [facility] UtdfggzUOFYJVSBMG1438-71-47 10:37:00 Test Item Value Reference Range Interpretation Comments PTT (test code = PTT) 25.0 s 22.9-35.8 [facility] GndkmarFRLMNXJKKY8936-15-26 10:37:0070.5[facility]annHEMATOLOGY 2020-08-29 10:37:0018.8[facility] WbrrrfmPWZZYALOHZ8801-38-48 10:37:009.5[facility] NrsabtxVEKAPRMTWB9514-27-62 10:37:000.9[facility] TunidtrTHULSJJHZG2784-16-99 10:37:000.3[facility] DnpxsarNSAFXQLAHY5663-48-91 10:37:004.8[facility] EMWIIXCFGF5209-10-43 10:37:001.3[facility] FqnyfcrKNOTZJLRRR4788-68-39 10:37:000.6 [facility] HuwwbwiKVNUDWBVEY7898-18-85 10:37:000.1[facility]annHEMATOLOGY 2020-08-29 10:37:001+ *ABN*(08/29/20 5:37 AM)[facility] LqzxxcqTNQFMBBGCM0112-22-03 10:37:00Not Detected (08/29/20 5:37 AM)[facility]annBLOOD BANK RESULTS 2020-08-29 10:37:00Negative (08/29/20 5:37 AM)[facility]annCHEM MUOQN8982-31-67 10:37:24907Bpnjxkhe HermannCHEM GZSKJ1196-81-52 10:37:0028[facility]annCHEM HTRMY8762-46-07 10:37:001.01[facility]annCHEM LBIJF5025-59-04 10:37:30526 [facility]annCHE[facility] KGZKL3008-22-41 10:37:003.8[facility] HermannCHEM PANEL 2020-08-29 10:37:41744Hczajwkb HermannCHEM SXKYO5707-57-42 10:37:0028[facility] HermannCHEM JJHQG6771-39-41 10:37:009.8[facility] HermannCHEM NMUUS2385-05-29 10:37:0011.8[facility] HermannCHEM JWPRT2445-50-34 10:37:0059[facility] HermannCHEM LNVYS4398-17-14 10:37:002.9[facility] LeioptrPTNAPDQQYU8368-62-46 10:37:006.8 [facility] TjaihckUOGEBIHGOP6130-94-34 10:37:004.47[facility]annHEMATOLOGY 2020-08-29 10:37:0010.6[facility] BsstvzdESEXTYOJFO0479-00-43 10:37:0034.0[facility] NqcuxooLRPSDKOXRA3721-49-31 10:37:0076.1[facility] IlinscdQRTPNCOMZA1180-57-84 10:37:00 Test Item Value Reference Range Interpretation Comments MCH (test code = MCH) 23.8 pg 27.0-31.0 [facility] SwbwcscGESLHETELP6996-28-91 10:37:0031.3[facility]annHEMATOLOGY 2020-08-29 10:37:0018.2[facility] JldkbcsDCKDYTQNHQ3436-25-73 10:37:50672Rpexjcvl UsmuiyiNXNHOAOXBH3687-07-05 10:37:007.5[facility] EfysnlcVIUQCSOABF7364-08-61 10:37:00 Test Item Value Reference Range Interpretation Comments PT (test code = PT) 12.8 s 12.0-14.7 Memorial CmcxzkdYBIPUPHEGH2139-03-39 10:37:00 Test Item Value Reference Range Interpretation Comments INR (test code = INR) 0.97 1 0.85-1.17 [facility] JcauqslEEMFPMZFSX2115-60-50 10:37:00 Test Item Value Reference Range Interpretation Comments PTT (test code = PTT) 25.0 s 22.9-35.8 Memorial GqckukjMSULVMBTRX1850-04-76 10:37:0070.5[facility] HermannHEMATOLOGY 2020-08-29 10:37:0018.8[facility] XhjqxpuTYSLKMZSRP2943-79-53 10:37:009.5[facility] VpruwpzJVMYIOEPEE3418-60-38 10:37:000.9[facility] MncqdjeALKLXLBFKF1459-94-00 10:37:000.3[facility] KusaaopZISHWPLHDE4023-68-75 10:37:004.8[facility] CGEUFLRVFN0861-37-61 10:37:001.3[facility] EpcfglkVQIOKMRUSW5159-19-93 10:37:000.6 [facility] ItmwemeIWQRILLMUU2840-43-18 10:37:000.1[facility] HermannHEMATOLOGY 2020-08-29 10:37:001+ *ABN*(08/29/20 5:37 AM)[facility] AalzosrKLESHULZIS7371-39-45 10:37:00Not Detected (08/29/20 5:37 AM)[facility] HermannBLOOD BANK RESULTS 2020-08-29 10:37:00Negative (08/29/20 5:37 AM)[facility] HermannCHEM ZSCTE3324-07-33 10:37:93513Nrxpnojr HermannCHEM OVPRR1533-18-58 10:37:0028[facility] HermannCHEM UENXB6979-53-46 10:37:001.01[facility] HermannCHEM BJQSD1494-74-99 10:37:18694 [facility]annCHEM DETAD8873-51-84 10:37:003.8[facility] HermannCHEM PANEL 2020-08-29 10:37:12112Hapnrnbc HermannCHEM ISEJK0137-74-79 10:37:0028[facility] HermannCHEM LQBVN1220-24-42 10:37:009.8[facility] HermannCHEM WWQEC3690-64-96 10:37:0011.8[facility] HermannCHEM WGEGV2470-21-71 10:37:0059[facility] HermannCHEM QPLED1503-75-08 10:37:002.9[facility] LcnmkftKGHZFQISHJ9615-71-91 10:37:006.8 [facility] GmcuirePFBLFIHVPU1542-69-66 10:37:004.47[facility] HermannHEMATOLOGY 2020-08-29 10:37:0010.6[facility] UjxlfooBXMRCHQKPW7130-79-98 10:37:0034.0[facility] LjirwzfMCYSGDHYRS0072-40-52 10:37:0076.1[facility] DjgcxnsUYNMZDKKIQ1935-91-80 10:37:00 Test Item Value Reference Range Interpretation Comments MCH (test code = MCH) 23.8 pg 27.0-31.0 [facility] XbcecqbGVXCZZAAJS9430-43-14 10:37:0031.3[facility] HermannHEMATOLOGY 2020-08-29 10:37:0018.2[facility] JwwipmxXVRQQPTNWC7091-31-72 10:37:50156Oreqtmid PhvvlmxFNVRMFGRIT6942-83-51 10:37:007.5[facility] NdcrgkvGZFNOYZSQU4778-01-68 10:37:00 Test Item Value Reference Range Interpretation Comments PT (test code = PT) 12.8 s 12.0-14.7 [facility] TjmkkewQWMQWUYOBE2258-08-00 10:37:00 Test Item Value Reference Range Interpretation Comments INR (test code = INR) 0.97 1 0.85-1.17 [facility] BgpuaehRNUFESXALK6640-71-51 10:37:00 Test Item Value Reference Range Interpretation Comments PTT (test code = PTT) 25.0 s 22.9-35.8 [facility] GrigipiXSVWJQPSGK4134-67-85 10:37:0070.5[facility] HermannHEMATOLOGY 2020-08-29 10:37:0018.8[facility] LimxxomOYGTSTBEVR3937-87-67 10:37:009.5[facility] JiqldjbCGTOYQRGSB9234-77-08 10:37:000.9[facility] JbluclbAZOSVIQOTQ4470-22-00 10:37:000.3[facility] HvqyybjVVODGWLRCS8976-38-26 10:37:004.8[facility] QRCEHQVKWM7453-19-88 10:37:001.3[facility] MhxitscCWJOQYWTAY8453-90-33 10:37:000.6 [facility] RwrhdijARWUKXTVUW0499-29-19 10:37:000.1[facility] HermannHEMATOLOGY 2020-08-29 10:37:001+ *ABN*(08/29/20 5:37 AM)[facility] GaobsinMPZNHBXJCY5130-05-03 10:37:00Not Detected (08/29/20 5:37 AM)[facility] HermannBLOOD BANK RESULTS 2020-08-29 10:37:00Negative (08/29/20 5:37 AM)[facility] HermannCHEM QYURW6069-17-77 10:37:93089Phcjasyk HermannCHEM WTNRR0748-67-53 10:37:0028[facility] HermannCHEM JTMLY1521-47-24 10:37:001.01[facility] HermannCHEM CYAPG3529-59-40 10:37:67491 [facility] HermannCHEM KDITT3533-65-30 10:37:003.8[facility] HermannCHEM PANEL 2020-08-29 10:37:63001Eproxhzr HermannCHEM WSRXZ5208-84-13 10:37:0028[facility] HermannCHEM RTYBR4192-81-94 10:37:009.8[facility] HermannCHEM DYTDO4927-98-97 10:37:0011.8[facility] HermannCHEM RIOIR6441-65-31 10:37:0059[facility] HermannCHEM WOVHH4657-32-69 10:37:002.9[facility] GddirinAFEUJWVXQN1865-06-10 10:37:006.8 [facility] IrpmmyoFZAMRVPQSI2308-57-99 10:37:004.47[facility] HermannHEMATOLOGY 2020-08-29 10:37:0010.6[facility] FmcymouPMMFHCSAFC5229-36-69 10:37:0034.0[facility] UpyawgcVGBHLNPFFV3344-06-72 10:37:0076.1[facility] FxwpplzMXACGMWUOK9130-00-14 10:37:00 Test Item Value Reference Range Interpretation Comments MCH (test code = MCH) 23.8 pg 27.0-31.0 [facility] TkhgnjxJYZBIILYSS7337-44-08 10:37:0031.3[facility] HermannHEMATOLOGY 2020-08-29 10:37:0018.2[facility] RpifukmZWPMEPUZMU8323-74-43 10:37:24543Mgeckbyb PftbkpaNXBWEIQFRG0471-61-86 10:37:007.5[facility] QjpwzvzWBNQLEVAXC1189-47-03 10:37:00 Test Item Value Reference Range Interpretation Comments PT (test code = PT) 12.8 s 12.0-14.7 [facility] HxqxjjlGZFXEMDBGR0874-96-84 10:37:00 Test Item Value Reference Range Interpretation Comments INR (test code = INR) 0.97 1 0.85-1.17 [facility] IwzgzeyDMEQNUEITC7947-13-17 10:37:00 Test Item Value Reference Range Interpretation Comments PTT (test code = PTT) 25.0 s 22.9-35.8 [facility] DcduppkXLLXWTZIAQ4182-73-38 10:37:0070.5[facility]OLOGY 2020-08-29 10:37:0018.8[facility] DmawabaKKKUHZOHWZ6172-87-79 10:37:009.5[facility] XaoyzuvQGORIIHYZW6759-05-47 10:37:000.9[facility] ZyvitxlIOGQSOZZIO7567-94-80 10:37:000.3[facility] OikjuckCAVFTNXXMI7605-99-39 10:37:004.8[facility] DHWLIEHXPE0822-17-31 10:37:001.3[facility] TtyckqwJORQPLHNSL2440-71-16 10:37:000.6 [facility] NwzmnmwOGUGMYBJVX5201-44-66 10:37:000.1[facility]annHEMATOLOGY 2020-08-29 10:37:001+ *ABN*(08/29/20 5:37 AM)[facility] UjvdfydNEUPRUKRLS9283-68-56 10:37:00Not Detected (08/29/20 5:37 AM)[facility]ann[facility]OD BANK RESULTS 2020-08-29 10:37:00Negative (08/29/20 5:37 AM)[facility] HermannCHEM ZNAQG6364-60-33 10:37:49844Sktqpqmn HermannCHEM ISGDI7733-11-67 10:37:0028[facility] HermannCHEM KLJMA1540-41-03 10:37:001.01[facility] HermannCHEM USJMI3060-86-41 10:37:83608 [facility]annCHEM JKKIZ3948-32-33 10:37:003.8[facility] HermannCHEM PANEL 2020-08-29 10:37:53439Etauqxuh HermannCHEM WCAPN2381-38-22 10:37:0028[facility] HermannCHEM LXTOO3729-07-18 10:37:009.8[facility] HermannCHEM BUBFB4676-38-99 10:37:0011.8[facility] HermannCHEM VXJKX5722-99-25 10:37:0059[facility]annCHEM VOKPY6009-23-28 10:37:002.9[facility] YmutiaxEIIWNASKWP9892-95-23 10:37:006.8 [facility] TiauuzuQENHYGURDX2993-59-75 10:37:004.47[facility]annHEMATOLOGY 2020-08-29 10:37:0010.6[facility] BqmybqqBLYSOGZJXK4061-76-84 10:37:0034.0[facility] DjygafiPFCIUWDJZH4921-32-27 10:37:0076.1[facility] GelrnqsPAAKSVVJEQ7081-92-79 10:37:00 Test Item Value Reference Range Interpretation Comments MCH (test code = MCH) 23.8 pg 27.0-31.0 [facility] EefhejuSELQDDPLUW5788-27-45 10:37:0031.3[facility]annHEMATOLOGY 2020-08-29 10:37:0018.2[facility] TmgjandYSWKFNWRPJ0789-40-60 10:37:21665Kmlrhywa DjkwprnCAXZUHKYQT1994-30-91 10:37:007.5[facility] SjryacwMVXOMCUSRP9951-87-08 10:37:00 Test Item Value Reference Range Interpretation Comments PT (test code = PT) 12.8 s 12.0-14.7 [facility] NwcnjeeERNBIBMHBI8842-59-35 10:37:00 Test Item Value Reference Range Interpretation Comments INR (test code = INR) 0.97 1 0.85-1.17 [facility] KzouieoRCADETFMHJ1360-78-68 10:37:00 Test Item Value Reference Range Interpretation Comments PTT (test code = PTT) 25.0 s 22.9-35.8 [facility] KddmlgyJPNAFXCKJX2116-60-20 10:37:0070.5[facility]annHEMATOLOGY 2020-08-29 10:37:0018.8[facility] ZcaadytETQEJDVRTE3438-97-31 10:37:009.5[facility] NvivvmaEDWZQKWSTA3018-10-21 10:37:000.9[facility] MzfgbuoNAJKIVTDTU6605-59-93 10:37:000.3[facility] AntgwzmNVELERTIHM9455-17-54 10:37:004.8[facility] WLLGXYXEAK7912-99-24 10:37:001.3[facility] NtaxgwdLTQPZDJEZT7246-44-18 10:37:000.6 [facility] MdctrdyIECBMLSQRL9754-33-37 10:37:000.1[facility]annHEMATOLOGY 2020-08-29 10:37:001+ *ABN*(08/29/20 5:37 AM)[facility] ZsgsgitRJLWNETMCH1438-85-19 10:37:00Not Detected (08/29/20 5:37 AM)[facility]annBL[facility]OD BANK RESULTS 2020-08-29 10:37:00Negative (08/29/20 5:37 AM)[facility]annCHEM CEUJA6348-64-75 10:37:62861Embxtliz HermannCHEM QZUSW0575-33-00 10:37:0028[facility]annCHEM KOHJB0062-90-31 10:37:001.01[facility] HermannCHEM GEMXM8201-14-74 10:37:68508 [facility]annCHEM TMEVK9504-34-96 10:37:003.8[facility] HermannCHEM PANEL 2020-08-29 10:37:76484Btolspju HermannCHEM XLGJF5006-94-75 10:37:0028[facility] HermannCHEM HWCNA4425-49-26 10:37:009.8[facility] HermannCHEM AHJYX3450-43-78 10:37:0011.8[facility] HermannCHEM BDJDK8929-71-69 10:37:0059[facility] HermannCHEM QOUEI8246-54-39 10:37:002.9[facility] ApmruxxHMERTKYIVM9230-26-53 10:37:006.8 [facility] KzqpzssLCFEJLQJSP9796-92-64 10:37:004.47[facility]annHEMATOLOGY 2020-08-29 10:37:0010.6[facility] ThoiyxdWBZEEEUHKS8320-34-36 10:37:0034.0[facility] InloqvfCXEZHRHAQV8758-31-03 10:37:0076.1[facility] QugcgdmWXDTFFHLJN3888-98-13 10:37:00 Test Item Value Reference Range Interpretation Comments MCH (test code = MCH) 23.8 pg 27.0-31.0 [facility] SgogkqhYTFCKKVBXK9399-48-35 10:37:0031.3[facility]annHEMATOLOGY 2020-08-29 10:37:0018.2[facility] YzvpzunPHQPKSKDQN9825-78-61 10:37:25577Qkduunyy ErugcurFBZJPLBOBC1564-55-02 10:37:007.5[facility] GciqqmiLFPANNYNLD1735-63-33 10:37:00 Test Item Value Reference Range Interpretation Comments PT (test code = PT) 12.8 s 12.0-14.7 [facility] YvxpkbyYJFMHPAWCC0659-17-01 10:37:00 Test Item Value Reference Range Interpretation Comments INR (test code = INR) 0.97 1 0.85-1.17 [facility] ClzajchNTUYOECJLH8252-28-15 10:37:00 Test Item Value Reference Range Interpretation Comments PTT (test code = PTT) 25.0 s 22.9-35.8 [facility] NaqfebfCSQBSKGEMP8759-17-48 10:37:0070.5[facility] HermannHEMATOLOGY 2020-08-29 10:37:0018.8[facility] HkagyuhMIHFBDMYGY5452-85-72 10:37:009.5[facility] ZthhykwWMNNBIBQRP5233-25-61 10:37:000.9[facility] ErvcvzuWUYNERICWY6763-54-97 10:37:000.3[facility] MwwroslTWZHTOHOZG3217-33-91 10:37:004.8[facility] NIBMWIWYLT2867-18-37 10:37:001.3[facility] LhimeqmWSUYPYWJXN1801-86-44 10:37:000.6 [facility] JuhjrryIFGFJHGXGL2438-93-94 10:37:000.1[facility]annHEMATOLOGY 2020-08-29 10:37:001+ *ABN*(08/29/20 5:37 AM)[facility] LfyuniyZPBPZIRJLG8082-70-78 10:37:00Not Detected (08/29/20 5:37 AM)[facility] 2020-08-27 23:14:39PROCEDURE: NM [...] complete emptying by 4 hours. [facility]-[id number] Interface, Radiology Results 08/27/2020 6:17 PM CDT [...] complete emptying by 4 hours. [facility]-[id number] HospitalMiscellaneous referral test 2020-05-09 21:24:58 Test Item Value Reference Range Interpretation Comments Misc test HIV-1 RNA QUAL PCR name (test code = 2566) Misc test see note Human Immunodef iciency result (test Virus 1 (HIV-1) by code = 1730) Qualitative Franchise Development Manager-M ediated Amplification ( TMA) ARUP test code 4320634 HIV-1 by Qualit ative TMA See Note SOURCE/SPECIMEN PLASMA HIV-1 RNA, QUAL ITATIVE TMA HIV-1 RNA, QL TMA T COOKER CLEANER Test Not Performed. Initial testing necessi tated a repeat, but the re was insufficient sa mple to perform repeat. SAMPLE LEFT FOR REPEAT IS 50 uL. NEED 1000 u L TO RUN REPEAT. This te st was performed using the APTIMA(R) HIV-R NA Qualitative Ass ay (Gen-Probe). ======== ======== Te st performed by:[employer] [place] [id number] KYLE (test HIVQL - HIV-1 RNA, code = KYLE) Qualitative TMA (FROZEN)ARUP Test Code: 3978252Tpgkot: plasma [facility] duplex venous upper qwsiexhav3115-53-02 04:57:00 Vascular Ultrasound Laboratory Upper Extremity Venous Report [id number] [address] Pat.Name: LIO WATTS Pat.ID: [id number] .Date: 04/30/2020 Refer.MD: ELISEO ARCE MD Exam Time: 5:04:00 PM Study Type:UE Venous Age: 9 1955,65Y Sex: FEMALE Sonogrphr: Dwayne Macias, IBIS, SANKET Pat. Stat.:Inpatient Room: [place] [address] 2020 Tape Vol: JM, CPT - 4: 17818 Echo Event ID:[id number] Order ID: [id number] Reason for Study:Arm swelling or pain, DVT [...] veins.*Preliminary result reported to ASHLEY Santos @ 2757 on 04/30/20.PHYSICIAN INTERPRETATION Venous examination of the both upper extremities and neck demonstratedno evidence of deep venous thrombosis. Total superficial vein thrombosis of the right basilic vein. FINDINGS: Signed 04/30/2020 10:57 PMFrancis Cabral MD, RPVIIntmagalice, Radiology Results In - 04/30/2020 10:58 PM CST Vascular Ultrasound Laboratory Upper Extremity Venous Report [id number] [place] [address] Pat.Name: LIO WATTS Pat.ID: [id number] .Date: 04/30/2020 Refer.MD: ELISEO ARCE MD Exam Time: 5:04:00 PM Study Type:UE Venous Age: 9 1955,65Y Sex: FEMALE Sonogrphr: IBIS Espinosa, SANKET Pat. Stat.:Inpatient Room: [place] [address] 2020 Tape Vol: , CPT - 4: 61784 Echo Event ID:[id number] Order ID: [id number] Reason for Study:Arm swelling or pain, DVT [...] veins.*Preliminary result reported to ASHLEY Santos @ 1726 on 04/30/20.PHYSICIAN INTERPRETATION Venous examination of the both upper extremities and neck demonstratedno evidence of deep venous thrombosis. Total superficial vein thrombosis of the right basilic vein. FINDINGS: ------Signed 04/30/2020 10:57 PMFrancis Cabral MD, [facility]XR Chest 2 [id number] 22:21:01EXAMINATION: XR CHEST 2 VW CLINICAL HISTORY: [...] cardiopulmonary process or active disease of the chest.[id number] Unsuccessful Cistefd8927-26-00 17:14:34ANicole zhang RN 04/30/2020 11:25 AMMidline Unsuccessful [...] place a PIV g.20 in lower arm .[facility] Abdomen 1 Zdbqwwve3862-71-24 16:20:14EXAMINATION: XR ABDOMEN 1 VW PORTABLE CLINICAL HISTORY: Abdominal pain post op COMPARISON: No prior IMPRESSION:1.Residual barium within the colon throughout. No small bowel obstruction noted. [facility]-2U [id number] Interface, Radiology Results Incoming - 04/30/2020 10:23 AM CST EXAMINATION: XR ABDOMEN 1 VW PORTABLECLINICAL HISTORY: Abdominalpain post opCOMPARISON: No priorIMPRESSION:1.Residual barium within the colon throughout. No smallbowel obstruction noted.[facility]-[id number] TikoobmbOwuzsz3914-11-39 20:57:57Carlee Malloy MD 04/28/2020 2:59 PMAirwayPerformed by: Carlee Malloy, MDAuthorized by: Carlee Malloy MD Location: ORUrgency: ElectiveDifficult Airway: No Anesthesiologist: Kvng Malloy, MDResident/APPLICATION INTEGRATION ARCHITECT/AA: Allan Morocho, DOPerformed by: resident/APPLICATION INTEGRATION ARCHITECT/AAPreoxygenated glxg196% O2: Yes C- spine Precautions Maintained Throughout: [...] No Number of Attempts at Approach: 1 [facility] HospitalTransthoracic Echocardiogram Complete, (w Contrast, Strain and 3D if needed)2020-04-28 00:20:00 Echocardiography Report [id number] [place] [address] Pat.Name: LIO WATTS Marta.ID: [id number] .Date: 04/27/2020 Refer.MD: ELISEO ARCE MD Exam Time: 2:21:00 PM Study Type:Routine Echo Height: 64in Weight: 213lb BSA: 2.01 m2 Age: 9 1955,65Y Sex: FEMALE BP: 128/89 HR: 102 bpm Sonogrphr: SANKET Perkins Pat. Stat.:Inpatient Room: [facility] Study Status:Final Echo Event ID:[id number] Order ID: [id number] Reason for Study:Atrial FibrillationHistory / Clinical:Hypertension Procedures: [...] estimate PA systolic pressure. MEASUREMENTS: 2DParasternal [place] Ao An 2.2 cm LVPWd 1 cm [...] - 04/27/2020 6:21 PM CST Echocardiography Report [id number] [place] [address] Pat.Name: LIO WATTS.ID: [id number] .Date: 04/27/2020 Refer.MD: ELISEO ARCE MD Exam Time: 2:21:00 PM Study Type:Routine Echo Height: 64in Weight: 213lb BSA: 2.01 m2 Age: 9 1955,65Y Sex: FEMALE BP: 128/89 HR: 102 bpm Sonogrphr: SANKET Perkins Pat. Stat.:Inpatient Room: [facility] Study Status:Final Echo Event ID:[id number] Order ID: [id number] Reason for Study:Atrial FibrillationHistory / Clinical:Hypertension Procedures: [...] PA systolic pressure.- MEASUREMENTS: ---- 2DParasternal [place] Ao An 2.2 cm LVPWd 1 cm [...] LVOT CI 3.1 l/m/m2 Signed 04/27/2020 06:20 [facility]NicoP[facility] Esophagram Double Ryfrfeej4350-65-93 18:07:12EXAMINATION: [place] ESOPHAGRAM DOUBLE CONTRAST CLINICAL HISTORY: [...] herniaCOMPARISON: Limited comparison with chest [facility]2019TECHNIQUE: Esophagram was performed with effervescent granules and barium.FLUOROSCOPIC TIME: 1.5 minutes.NUMBER OF IMAGES: 9 fluoroscopic images.IMPRESSION:No strictures. Normal esophageal mucosa.Nonspecific esophageal dysmotility, with mildly delayed esophageal emptying and scatterednonpropulsive tertiary contraction waves.There is a moderately sized type III hiatal hernia. There was mild spontaneous gastroesophageal reflux.[id number]CT [facility] Wo Contrast Abdomen Wo Contrast Pelvis Wo Gtvrpdio4651-00-87 15:23:55EXAMINATION: CT CHEST WO CONTRAST ABDOMEN WO [...] chronic and incidental findings as detailed above. [facility]-[id number] Dictated and approved by radiology resi dent/fellow: Jenna Valenzuela M.D. I, Medhat Flowers Jr., M.D., personally reviewed the images and resident's/fellow's findings and agree with the final report.[facility], Radiology Results Incoming - 04/21/2020 [...] and incidental findings as detailed above.[facility]-[id number] and approved by residential collections/fellow: Jenna Valenzuela M.D.I, Medhat Flowers Jr., M.D., personally reviewed the images and resident's/fellow's findings and agree with the final report. [facility] CampusSAM, GC, TV,PCR, IN [id number] 15:38:00 Test Item Value Reference Range Interpretation Comments FT (test code = CHTR) Not detected (qualifier Not Detected N value) FT (test code = Not detected (qualifier Not Detected N NGONO) value) FT (test code = TRVG) Not detected (qualifier Not Detected N value) URINALYSIS WITH TYTHXHOWQMZ5617-95-40 10:57:00 Test Item Value Reference Range Interpretation Comments Color (test code = UCOLR) Dk. Yellow Clarity (test code = UCLAR) Hazy Glucose (test code = UGLUC) NEGATIVE NEGATIVE N Bilirubin (test code = UBILI) NEGATIVE NEGATIVE N Ketones (test code = UKET) NEGATIVE NEGATIVE N Specific [place] (test code = 1.025 1.005-1.030 A USPGR) [...]
--- NOTE | 2021-05-27 12:46 | RAD REPORT ---
EXAM DESCRIPTION: Patrick Single View05/27/2021 12:36 pm CLINICAL HISTORY: Shortness of breath COMPARISON: April 2021 FINDINGS: The lungs appear clear of acute infiltrate. The heart is mildly to moderately enlarged IMPRESSION: No acute abnormalities displayed
[2021-05-27] MEDS ORDERED: LEVALBUTEROL 1.25 MG/3 ML NEB ONE (13:09)
[2021-05-27] MEDS ORDERED: MORPHINE 4 MG/ML SYR ONE ×2 (13:09→15:18)
[2021-05-27] MEDS ORDERED: METHYLPREDNISOLONE 125 MG INJ ONE (13:09)
[2021-05-27 13:11] LABS: Absolute Lymphocytes (CBC) 1.3 K/uL (0.7-4.9); Hematocrit 35.4 % (36.0-45.0); Lymphocytes % 20.1 % (15.3-44.8); MPV 7.2 fL (7.6-11.3); RBC Red Blood Cell Count 4.45 M/uL (3.86-4.86)
[2021-05-27 13:32] LABS: Anisocytosis SLIGHT; Blood Morphology Comment NOTED (NOT SEEN); Platelet Estimate ADEQ; White Blood Cell Scan OK (OK)
[2021-05-27 13:48] LABS: Protime INR 1.09
[2021-05-27 13:51] LABS: SARS-COV-2 RT PCR NEGATIVE (NEGATIVE)
[2021-05-27] MEDS ORDERED: MAGNESIUM SULFATE 1 gm IVPB 1 GM/100 ML BAG IV ONE (15:18)
[2021-05-27 15:51] LABS: BUN Blood Urea Nitrogen 20 mg/dL (7-18); Bicarbonate 29 mmol/L (21-32); Glucose Level 131 mg/dL (74-106); Potassium 3.7 mmol/L (3.5-5.1); Sodium Level 141 mmol/L (136-145)
[2021-05-27 16:06] LABS: NT PRO-BNP 3145 pg/mL (<125); Troponin (Emerg Dept Use Only) < 0.02 ng/mL (0.0-0.045)
[2021-05-27] MEDS ORDERED: FUROSEMIDE 40 MG/4 ML VIAL ONE (17:01)
--- NOTE | 2021-05-27 17:22 | EDPHYS ---
Physician Documentation [facility] Name: Marjan Fleming Age: 66 yrs Sex: Female : 1955 Arrival Date: 05/27/2021 Time: 12:09 Bed 19 Private MD: Lele Rahman H ED Physician Ramon Baker HPI: 05/27 14:30 This 66 yrs old Female presents to ER via Wheelchair with complaints of Palpitations, rn sob. 14:31 The patient has shortness of breath with light activity, during heavy activity. Onset: rn The symptoms/episode began/occurred 3 day(s) ago. Duration: The symptoms are intermittent. The patient's shortness of breath is aggravated by exertion, light activity, is alleviated by rest. Associated signs and symptoms: Pertinent positives: chest pain, Pertinent negatives: productive cough, fever, hemoptysis. Severity of symptoms: At their worst the symptoms were moderate in the emergency department the symptoms are unchanged. The patient has experienced similar episodes in the past. The patient has been recently seen by a physician:. Patient reports a few days of increased dyspnea, worse with exertion. Denies feeling ill. Denies fever/productive cough/hemoptysis/abdominal pain. Reports seen by cardiology yesterday and is in line for watchman procedure. Reports feeling palpitations this morning that worried her so she came in for evaluation. States compliant with her Eliquis.. Historical: - Allergies: 12:23 Bactrim DS; ld1 12:23 butorphanol tartrate; ld1 12:23 Fentanyl; ld1 12:23 Reglan; ld1 12:23 Stadol; ld1 12:23 sulfamethoxazole (bulk); ld1 12:23 TRIMETHOPRIM; ld1 - PMHx: 12:23 Anxiety; Atrial Fib; Bipolar disorder; Chronic pain; COPD; esophageal varices; ld1 Hepatitis; HIV; Hypertension; Migraines; Panic Attacks; - PSHx: 12:23 Bilateral shoulder repair; Appendectomy; Cholecystectomy; hernia repair; R wrist SX; ld1 - Immunization history:: Adult Immunizations up to date, Client reports receiving the 2nd dose of the Covid vaccine, Pfizer . - Social history:: Smoking status: Patient/guardian denies using tobacco, the patient reports quitting approximately 1 years ago, Patient/guardian denies using alcohol. - Family history:: not pertinent. - Hospitalizations: : No recent hospitalization is reported. ROS: 14:31 Constitutional: Negative for fever, chills, and weight loss, Eyes: Negative for injury, rn pain, redness, and discharge, Neck: Negative for injury, pain, and swelling, Cardiovascular: Negative for edema Respiratory: Positive for shortness of breath Abdomen/GI: Negative for abdominal pain, nausea, vomiting, diarrhea, and constipation, : Negative for injury, bleeding, discharge, and swelling, MS/Extremity: Negative for injury and deformity, Skin: Negative for injury, rash, and discoloration, Neuro: Negative for headache, weakness, numbness, tingling, and seizure. Exam: 14:31 Constitutional: This is a well developed, well nourished patient who is awake, alert, rn with mild tachypnea Head/Face: Normocephalic, atraumatic. Eyes: Periorbital areas with no swelling, redness, or edema. ENT: No stridor Cardiovascular: Regular rate and rhythm. No pulse deficits. Respiratory: Mild tachypnea, mild expiratory wheeze bilaterally Abdomen/GI: Soft, non-tender Skin: Warm, dry MS/ Extremity: Pulses equal, no cyanosis. Neurovascular intact. Full, normal range of motion. Equal circumference. Neuro: Awake and alert, GCS 15, oriented to person, place, time, and situation. Cranial nerves II-XII grossly intact. Motor strength 5/5 in all extremities. Sensory grossly intact. Cerebellar exam normal. Vital Signs: 12:20 BP 128 / 94; Pulse 69; Resp 22; Temp 98.7(O); Pulse Ox 91% on R/A; Weight 97.52 kg; ld1 Height 5 ft. 4 in. (162.56 cm); Pain 9/10; 12:27 BP 161 / 85; Pulse 70; Resp 24 S; Pulse Ox 86% on R/A; jg9 13:10 BP 184 / 98; Pulse 69; Resp 24; Pulse Ox 98% on 3 lpm NC; jg9 13:30 BP 183 / 93; Pulse 67; Resp 20 S; Pulse Ox 100% on Nebulizer Mask; jg9 14:30 BP 178 / 100; Pulse 71; Resp 18 S; Pulse Ox 95% on R/A; jg9 15:00 BP 184 / 105; Pulse 72; Resp 18 S; Pulse Ox 93% on 3 lpm NC; jg9 15:30 BP 179 / 100; Pulse 72; Resp 20 S; Pulse Ox 94% on 3 lpm NC; jg9 17:30 BP 156 / 104; Pulse 68; Resp 20 S; Pulse Ox 96% on 3 lpm NC; jg9 18:00 BP 170 / 92; Pulse 66; Resp 19 S; Pulse Ox 95% on 3 lpm NC; jg9 22:27 BP 149 / 87; Pulse 98; Resp 18; Pulse Ox 96% ; ic1 05/28 00:43 BP 157 / 105; Pulse 98; Pulse Ox 95% on 3.5 lpm NC; ic1 02:49 BP 145 / 82; Pulse 65; Resp 18; Pulse Ox 97% on 3.5 lpm NC; ic1 04:54 BP 155 / 94; Pulse 60; Resp 18; Pulse Ox 97% on R/A; ic1 06:05 BP 157 / 99; Pulse 62; Resp 18; Pulse Ox 96% on 2 lpm NC; ic1 05/27 12:20 Body Mass Index 36.90 (97.52 kg, 162.56 cm) ld1 MDM: 05/27 12:28 Patient medically screened. rn 17:15 Differential diagnosis: Bronchitis pneumonia, Pneumothorax pulmonary edema, reactive rn airway disease. Data reviewed: vital signs, nurses notes, lab test result(s). 17:18 Response to treatment: the patient's symptoms have mildly improved after treatment, and rn as a result, I will admit patient. Admission orders: after a detailed discussion of the patient's condition and case, the admit orders are written by me. ED course: Pt did not do well ambulating to bathroom, still with moderate tachypnea, no increase in oxygen requirement, mixed COPD and CHF with predominant COPD problems today, will obs to Dr. Rincon. Dr. Rincon notified. . 05/27 12:29 Order name: Basic Metabolic Panel rn 05/27 12:29 Order name: CBC with Diff; Complete Time: 14:15 rn 05/27 12:29 Order name: NT PRO-BNP; Complete Time: 16:11 rn 05/27 12:29 Order name: PT-INR; Complete Time: 14:15 rn 05/27 12:29 Order name: Troponin (emerg Dept Use Only); Complete Time: 16:11 rn 05/27 12:29 Order name: Basic Metabolic Panel; Complete Time: 16:11 EDMS 05/27 12:29 Order name: XRAY Chest (1 view); Complete Time: 12:52 rn 05/27 12:53 Order name: COVID-19/FLU A+B (Document "Date of Onset" if Symptomatic); Complete Time: rn 14:05/27 13:32 Order name: CBC Smear Scan; Complete Time: 14:15 EDMS 05/27 18:58 Order name: CBC with Automated Diff EDMS 05/27 18:58 Order name: CBC with Automated Diff EDMS 05/27 18:58 Order name: Comprehensive Metabolic Panel EDMS 05/27 18:58 Order name: Comprehensive Metabolic Panel EDMS 05/27 12:29 Order name: EKG; Complete Time: 12:30 rn 05/27 12:29 Order name: Cardiac monitoring; Complete Time: 13:03 rn 05/27 12:29 Order name: EKG - Nurse/Tech; Complete Time: 13:03 rn 05/27 12:29 Order name: IV Saline Lock; Complete Time: 13:16 rn 05/27 12:29 Order name: Labs collected and sent; Complete Time: 13:47 rn 05/27 12:29 Order name: O2 Per Protocol; Complete Time: 13:03 rn 05/27 12:29 Order name: O2 Sat Monitoring; Complete Time: 13:03 rn 05/27 13:48 Order name: Labs - recollect needed: BMP only (green top); Complete Time: 15:31 05/27 18:58 Order name: Heart Healthy EDNE 05/28 07:35 Order name: RAD EDNE Administered Medications: 13:14 Drug: morphine 4 mg Route: IVP; Site: left upper arm; jg9 13:44 Follow up: Response: No adverse reaction; Pain is decreased; RASS: Alert and Calm (0) jg9 13:16 Drug: SOLU-Medrol (methylPrednisoLONE) 125 mg Route: IVP; Site: left upper arm; jg9 13:44 Follow up: Response: No adverse reaction jg9 13:16 Drug: Xopenex (levalbuterol) (3) 1.25 mg Route: Inhalation; jg9 14:30 Follow up: Response: No change in condition jg9 15:30 Drug: morphine 4 mg Route: IVP; Site: left upper arm; jg9 15:50 Follow up: Response: No adverse reaction; Pain is decreased jg9 15:50 Follow up: Response: RASS: Alert and Calm (0) jg9 23:22 Follow up: Response: Pain is unchanged, physician notified; RASS: Alert and Calm (0) ic1 15:31 Drug: Magnesium Sulfate 1 grams Route: IVPB; Infused Over: 1 hrs; Site: left upper arm; jg9 16:35 Follow up: IV Status: Completed infusion; IV Intake: 100ml j9 17:00 Drug: Lasix (furosemide) 40 mg Route: IVP; Site: left upper arm; jg9 Disposition: 17:18 Critical Care:. rn Disposition Summary: 05/27/21 17:22 Hospitalization Ordered Hospitalization Status: Observation rn Provider: César Rincon [facility]n [facility] Condition: Stable rn Problem: an acute exacerbation rn Symptoms: have improved rn Bed/Room Type: Standard rn Room Assignment: rn Diagnosis - COPD/ Chronic obstructive pulmonary disease with (acute) exacerbation rn - Unspecified combined systolic (congestive) and diastolic (congestive) heart failure rn Forms: - Medication Reconciliation Form rn - SBAR form learning development specialist time excluding procedures: 17:18 Critical care time: Bedside Care: 30 minutes, Consultation: 5 minutes. Total time: 35 rn minutes Signatures: Dispatcher [employer] EDMS Ramon Baker MD MD rn Smirch, Shelby RN RN Wanda Rust RN RN ld1 Karen Joseph jg9 Candie White RN ic1 Corrections: (The following items were deleted from the chart) 13:32 13:32 Manual Differential ordered. EDMS EDMS
--- NOTE | 2021-05-27 17:22 | ER ---
Nurse's Notes [facility] Name: Marjan Fleming Age: 66 yrs Sex: Female : 1955 Arrival Date: 05/27/2021 Time: 12:09 Bed 19 Private MD: Lele Rahman H Diagnosis: COPD/ Chronic obstructive pulmonary disease with (acute) exacerbation;Unspecified combined systolic (congestive) and diastolic (congestive) heart failure Presentation: 05/27 12:20 Chief complaint: Patient states: Every time I get up and walk a little bit I get short ld1 of breath and feel like my heart is beating out of my chest. I began having heart palpitations this morning. Coronavirus screen: At this time, the client does not indicate any symptoms associated with coronavirus-19. Ebola Screen: No symptoms or risks identified at this time. Initial Sepsis Screen: Does the patient meet any 2 criteria? Yes Does the patient have a suspected source of infection? No. Patient's initial sepsis screen is negative. Risk Assessment: Do you want to hurt yourself or someone else? Patient reports no desire to harm self or others. Onset of symptoms was May 27, 2021. 12:20 Method Of Arrival: Wheelchair ld1 12:20 Acuity: BLAYNE 2 ld1 Triage Assessment: 12:23 General: Appears in no apparent distress. comfortable, Behavior is cooperative, ld1 anxious. Pain: Complains of pain in left breast. Neuro: Level of Consciousness is awake, alert, obeys commands, Oriented to person, place, time, situation, Appropriate for age. Respiratory: Airway is patent Respiratory effort is even, labored, Respiratory pattern is. Historical: - Allergies: 12:23 Bactrim DS; ld1 12:23 butorphanol tartrate; ld1 12:23 Fentanyl; ld1 12:23 Reglan; ld1 12:23 Stadol; ld1 12:23 sulfamethoxazole (bulk); ld1 12:23 TRIMETHOPRIM; ld1 - PMHx: 12:23 Anxiety; Atrial Fib; Bipolar disorder; Chronic pain; COPD; esophageal varices; ld1 Hepatitis; HIV; Hypertension; Migraines; Panic Attacks; - PSHx: 12:23 Bilateral shoulder repair; Appendectomy; Cholecystectomy; hernia repair; R wrist SX; ld1 - Immunization history:: Adult Immunizations up to date, Client reports receiving the 2nd dose of the Covid vaccine, Pfizer . - Social history:: Smoking status: Patient/guardian denies using tobacco, the patient reports quitting approximately 1 years ago, Patient/guardian denies using alcohol. - Family history:: not pertinent. - Hospitalizations: : No recent hospitalization is reported. Screenin:04 Abuse screen: Denies threats or abuse. Denies injuries from another. Nutritional jg9 screening: No deficits noted. Tuberculosis screening: No symptoms or risk factors identified. Fall Risk Fall in past 12 months (25 points). IV access (20 points). Assessment: 13:10 Reassessment: No changes from previously documented assessment. Patient requesting jg9 additional pain medication for chest pain and ear drum pain-attending notified. 15:48 Respiratory: Breath sounds are diminished bilaterally. Patient breath sounds improved jg9 at rest however with exertion patient has end expiratory wheezing, at rest patient appears comfortable, with exertion patient appears distressed-attending aware. 22:25 Reassessment: Patient states symptoms have not improved. General: Appears in no ic1 apparent distress. uncomfortable, Behavior is calm, cooperative. Pain: Complains of pain in chest and left breast. Neuro: No deficits noted. Cardiovascular: No deficits noted. 05/28 02:52 Reassessment: Pt amb to bathroom in NAD. Gait steady. No acute changes noted from pt's ic1 condition. 02:57 Reassessment: See [facility] for charting. ic1 04:55 Reassessment: Patient denies pain at this time. Patient states feeling better. ic1 Vital Signs: 05/27 12:20 BP 128 / 94; Pulse 69; Resp 22; Temp 98.7(O); Pulse Ox 91% on R/A; Weight 97.52 kg; ld1 Height 5 ft. 4 in. (162.56 cm); Pain 9/10; 12:27 BP 161 / 85; Pulse 70; Resp 24 S; Pulse Ox 86% on R/A; jg9 13:10 BP 184 / 98; Pulse 69; Resp 24; Pulse Ox 98% on 3 lpm NC; jg9 13:30 BP 183 / 93; Pulse 67; Resp 20 S; Pulse Ox 100% on Nebulizer Mask; jg9 14:30 BP 178 / 100; Pulse 71; Resp 18 S; Pulse Ox 95% on R/A; jg9 15:00 BP 184 / 105; Pulse 72; Resp 18 S; Pulse Ox 93% on 3 lpm NC; jg9 15:30 BP 179 / 100; Pulse 72; Resp 20 S; Pulse Ox 94% on 3 lpm NC; jg9 17:30 BP 156 / 104; Pulse 68; Resp 20 S; Pulse Ox 96% on 3 lpm NC; jg9 18:00 BP 170 / 92; Pulse 66; Resp 19 S; Pulse Ox 95% on 3 lpm NC; jg9 22:27 BP 149 / 87; Pulse 98; Resp 18; Pulse Ox 96% ; ic1 05/28 00:43 BP 157 / 105; Pulse 98; Pulse Ox 95% on 3.5 lpm NC; ic1 02:49 BP 145 / 82; Pulse 65; Resp 18; Pulse Ox 97% on 3.5 lpm NC; ic1 04:54 BP 155 / 94; Pulse 60; Resp 18; Pulse Ox 97% on R/A; ic1 06:05 BP 157 / 99; Pulse 62; Resp 18; Pulse Ox 96% on 2 lpm NC; ic1 05/27 12:20 Body Mass Index 36.90 (97.52 kg, 162.56 cm) ld1 ED Course: 05/27 12:09 Patient arrived in ED. mr 12:09 Lele Rahman DO is Private Physician. mr 12:15 Patient has correct armband on for positive identification. Bed in low position. Call jg9 light in reach. Side rails up X 1. 12:23 Triage completed. ld1 12:23 Arm band placed on right wrist. ld1 12:28 Ramon Baker MD is Attending Physician. rn 12:36 XRAY Chest (1 view) In Process Unspecified. EDMS 13:01 Karen Joseph is Primary Nurse. jg9 13:04 Inserted saline lock: 22 gauge in left upper arm, using aseptic technique. jg9 13:47 Basic Metabolic Panel Sent. jg9 15:48 No apparent distress. Resting quietly. Awaiting lab results, Awaiting radiology results.jg9 17:20 César Rincon DO is Hospitalizing Provider. rn 22:25 Door closed. Noise minimized. Lights dimmed. Warm blanket given. ic1 22:54 Notified the Hospitalist of Pt is c/o pain. Given order to administer 650mg of Tylenol ic1 PO. VRBO. Acknowledged understanding. Pt notified. 05/28 09:16 No provider procedures requiring assistance completed. jg9 09:16 IV discontinued. jg9 Administered Medications: 05/27 13:14 Drug: morphine 4 mg Route: IVP; Site: left upper arm; jg9 13:44 Follow up: Response: No adverse reaction; Pain is decreased; RASS: Alert and Calm (0) jg9 13:16 Drug: SOLU-Medrol (methylPrednisoLONE) 125 mg Route: IVP; Site: left upper arm; jg9 13:44 Follow up: Response: No adverse reaction jg9 13:16 Drug: Xopenex (levalbuterol) (3) 1.25 mg Route: Inhalation; jg9 14:30 Follow up: Response: No change in condition jg9 15:30 Drug: morphine 4 mg Route: IVP; Site: left upper arm; jg9 15:50 Follow up: Response: No adverse reaction; Pain is decreased jg9 15:50 Follow up: Response: RASS: Alert and Calm (0) jg9 23:22 Follow up: Response: Pain is unchanged, physician notified; RASS: Alert and Calm (0) ic1 15:31 Drug: Magnesium Sulfate 1 grams Route: IVPB; Infused Over: 1 hrs; Site: left upper arm; jg9 16:35 Follow up: IV Status: Completed infusion; IV Intake: 100ml jg9 17:00 Drug: Lasix (furosemide) 40 mg Route: IVP; Site: left upper arm; jg9 Intake: 16:35 IV: 100ml; Total: 100ml. jg9 Outcome: 17:22 Decision to Hospitalize by Provider. rn 19:00 Admitted to ER Hold. Please see [facility] for further documentation. jg9 05/28 09:16 Discharged to home ambulatory. jg9 Condition: stable Discharge instructions given to patient, Instructed on discharge instructions, follow up and referral plans. Demonstrated understanding of instructions, follow-up care. 09:25 Patient left the ED. jg9 Signatures: Dispatcher [employer] Jessie Lozano Roman, MD MD rn Barrera, Wanda RN RN ld1 Karen Joseph9 Candie White RN RN ic1
--- NOTE | 2021-05-27 18:49 | P.HP ---
Certification for Inpatient Patient admitted to: Observation With expected LOS: <2 Midnights Patient will require the following post-hospital care: None Practitioner: I am a practitioner with admitting privileges, knowledge of patient current condition, hospital course, and medical plan of care. Services: Services provided to patient in accordance with Admission requirements found in Title 42 Section 412.3 of the Code of Federal Regulations Patient History Date of Service: 05/27/21 Reason for admission: Shortness of breath History of Present Illness: 66-year-old female with past medical history of HIV, diastolic CHF, COPD on home O23 L at baseline, recent hospitalization for COPD exacerbation 1 week ago discharged with prednisone, states she finished a tapering dose yesterday developed worsening shortness of breath again today. Denies any wheezing and cough . state occ chest tightness and recurrent pain over left ear . On admission patient was noted with O2 sat of 96% on 3 L, vitals remained stable. Allergies fentanyl Allergy (Severe, Verified 03/31/21 11:11) Hives butorphanol tartrate [From Stadol] Allergy (Verified 03/31/21 11:11) confusion metoclopramide HCl [From Reglan] Allergy (Verified 03/31/21 11:11) Shortness of breath sulfamethoxazole [From Bactrim] Allergy (Verified 03/31/21 11:11) Hives/Rash trimethoprim [From Bactrim] Allergy (Verified 03/31/21 11:11) Hives/Rash Bactrim DS Allergy (Intermediate, Uncoded 03/31/21 11:11) Nausea/Vomiting Home Medications: Raltegravir Potassium [Isentress] 1 tab PO BID 02/28/12 Sertraline [Zoloft*] 2 tab PO DAILY 09/15/12 Metoprolol Tartrate 100 mg PO BID #60 tablet 02/03/20 Apixaban [Eliquis] 1 tab PO BID 07/30/20 Lisinopril [Zestril] 1 tab PO BID 07/30/20 Emtricitabine/Tenofov Alafenam [Descovy 200-25 mg Tablet] 1 tab PO DAILY 03/05/21 Hydralazine HCl 50 mg PO TID 03/05/21 Amlodipine Besylate 1 tab PO DAILY 03/30/21 Buspirone HCl 30 mg PO BID 03/30/21 Dexlansoprazole [Dexilant] 60 mg PO DAILY 03/30/21 Docusate/Senna [Senokot-S*] 1 tab PO DAILY PRN 03/30/21 Albuterol Inhaler [Ventolin Inhaler*] 2 puff IH BID 03/31/21 LORazepam [Lorazepam] 1 tab PO BID 03/31/21 buPROPion HCL [Bupropion Xl] 1 tab PO DAILY 04/03/21 Hydrocodone 5/APAP 325 [[place] 5/325*] 1 tab PO Q8H PRN 5 Days #15 tab 04/05/21 Ferrous Sulfate [Iron] 325 mg PO DAILY 30 Days #30 tablet 04/15/21 Furosemide [Lasix] 40 mg PO 30 MIN BEFORE HS #30 tablet 05/17/21 Mometasone/Formoterol [Dulera 200 Mcg/5 Mcg Inhaler] 2 puff IH BID 30 Days #120 inhaler 05/17/21 Prednisone [Sterapred Ds] 10 mg PO DAILY 30 Days #30 tab 05/17/21 - Past Medical/Surgical History Diabetic: No -: HIV diag ~ [address] Yohan Cardenas in [place] -: CAD -: Bipolar disorder Dr Krause in [place] -: Hypertension -: COPD on home O2 -: Tobacco abuse -: former Alcohol abuse -: Anemia likely of chronic disease -: Hyperlipidemia -: GERD with hiatal hernia -: Atrial fibrillation on chronic anticoagulation therapy -: Chronic diastolic CHF -: Appendectomy -: Cholecystectomy -: left and right shoulder rotator cuff repair -: Right foot repair -: Right shoulder replacement -: left shoulder rotated cuff -: hiatal hernia repair february 2021 -: right wrist Psychosocial/ Personal History: She lives at home. She is not . - Family History Father -: Heart disease, Hypertension, Lung disease, GI disease, Diabetes, Stroke, Liver disease, Kidney disease Mother -: Hypertension, Lung disease, GI disease, Blood disorders, Other (see notes) Notes: Epilepsy, chronic pain, leukemia - Social History Smoking Status: Never smoker Alcohol use: No CD- Drugs: No Caffeine use: Yes Place of Residence: Home Review of Systems 10-point ROS is otherwise unremarkable Physical Examination - Physical Exam General: Alert, In no apparent distress, Cooperative HEENT: Atraumatic, Normocephalic, PERRLA Neck: Supple, 2+ carotid pulse no bruit, JVD not distended Respiratory: Clear to auscultation bilaterally, Normal air movement Cardiovascular: Normal pulses, Regular rate/rhythm, Normal S1 S2 Gastrointestinal: Normal bowel sounds, Soft and benign, Non-distended Musculoskeletal: No clubbing, No swelling Integumentary: No breakdown, No significant lesion Neurological: Normal gait, Normal speech, Normal strength at 5/5 x4 extr, Cranial nerves 3-12 intact - Studies Laboratory Data (last 24 hrs) 05/27/21 15:24: Sodium 141, Potassium 3.7, BUN 20 H, Creatinine 0.82, Glucose 131 H 05/27/21 13:27: PT 12.6 H, INR 1.09 05/27/21 12:55: WBC 6.60, Hgb 11.0 L, Hct 35.4 L, Plt Count 195 D Imagings Data: Chest x-ray with mild pulmonary congestion Assessment and Plan - Problems (Diagnosis) (1) COPD exacerbation Current Visit: No Status: Acute (2) GERD (gastroesophageal reflux disease) Current Visit: No Status: Acute (3) HIV (human immunodeficiency virus infection) Current Visit: No Status: Acute (4) SOB (shortness of breath) Current Visit: No Status: Acute (5) Atrial fibrillation Current Visit: No Status: Chronic Qualifiers: Atrial fibrillation type: unspecified Qualified Code(s): I48.91 - Unspecified atrial fibrillation (6) Bipolar disorder Onset Date: 05/26/15 Current Visit: No Status: Chronic Qualifiers: (7) COPD (chronic obstructive pulmonary disease) Onset Date: 05/26/15 Current Visit: No Status: Chronic Qualifiers: (8) HIV positive Onset Date: 10/23/14 Current Visit: No Status: Chronic (9) Hepatitis C Onset Date: 10/06/16 Current Visit: No Status: Chronic Qualifiers: (10) Hypertension Onset Date: 05/26/15 Current Visit: No Status: Chronic - Plan COPDstable CHF with mild exacerbation Hypertension HIV Hepatitis C Recurrent migraine headache Anxiety disorder Plan Mild elevated proBNP, start Lasix diuresis -COPD stable, continue O2, oxygen weaned down to 2.5 L -Will observe patient overnight Possible DC in a.m. Continue home regimen Do slow steroid tapering although patient does not have COPD exacerbation DVT prophylaxis GI prophylaxis with PPI Discharge Plan: Home - Advance Directives Does patient have a Living Will: Yes Does patient have a Durable POA for Healthcare: No Physician Review: Patient Assessed, Agree with Above Assessment and Plan Time Spent Managing Pts Care (In Minutes): 60
[2021-05-27] MEDS ORDERED: ACETAMINOPHEN 500 MG TAB PO PRN (18:53)
[2021-05-27] MEDS ORDERED: MORPHINE 2 MG/ML SYR IV PRN (18:53)
[2021-05-27] MEDS ORDERED: ONDANSETRON 4 MG/2 ML VIAL IV PRN (18:53)
[2021-05-27] MEDS ORDERED: ALBUTEROL 2.5 MG/3 ML NEB SOL NEB PRN (18:53)
[2021-05-27] MEDS ORDERED: HYDROCODONE/APAP 5/325 MG TAB PO PRN (18:55)
[2021-05-27] MEDS ORDERED: Oxycodone HCl/Acetaminophen 1 TAB TAB PO PRN (18:58)
[2021-05-27] MEDS ORDERED: lisinopriL 20 MG TAB PO SCH (21:00)
[2021-05-27] MEDS ORDERED: APIXABAN 5 MG TABLET PO SCH (21:00)
[2021-05-27] MEDS ORDERED: RALTEGRAVIR POTASSIUM 400 MG TABLET PO SCH (21:00)
[2021-05-27] MEDS ORDERED: FUROSEMIDE 40 MG TABLET PO SCH (21:00)
[2021-05-27] MEDS ORDERED: BUSPIRONE HCL 15 MG TABLET PO SCH (21:00)
[2021-05-27] MEDS ORDERED: METOPROLOL TAR 50 MG TAB PO SCH (21:00)
[2021-05-27] MEDS ORDERED: HYDRALAZINE HCL 25 MG TABLET PO SCH (21:00)
[2021-05-27] MEDS ORDERED: ACETAMINOPHEN 325 MG TABLET ONE (22:59)
[2021-05-28 01:26] VITALS: BMI 36.8
[2021-05-28] MEDS ORDERED: Oxycodone HCl/Acetaminophen 1 TAB TAB ONE (02:15)
[2021-05-28 03:21] LABS: Absolute Lymphocytes (CBC) 1.1 K/uL (0.7-4.9); Hematocrit 34.9 % (36.0-45.0); Lymphocytes % 14.1 % (15.3-44.8); MPV 7.4 fL (7.6-11.3); RBC Red Blood Cell Count 4.41 M/uL (3.86-4.86)
[2021-05-28 04:51] LABS: Bilirubin Total 0.4 mg/dL (0.2-1.0); Potassium 3.7 mmol/L (3.5-5.1)
[2021-05-28 04:52] LABS: Protein, Total 7.3 g/dL (6.4-8.2)
[2021-05-28] MEDS ORDERED: METHYLPREDNISOLONE 40 MG INJ IV SCH (06:00)
--- NOTE | 2021-05-28 06:10 | P.PN ---
Subjective Date of Service: 05/28/21 Primary Care Provider: Dr. Rahman Chief Complaint: Shortness of breath Subjective: Improving, Doing well Physical Examination - Vital Signs Blood Pressure: 166/93 Pulse: 68 Respirations: 18 Pulse Ox (%): 94 - Studies Laboratory Data (last 24 hrs) 05/27/21 15:24: Sodium 141, Potassium 3.7, BUN 20 H, Creatinine 0.82, Glucose 131 H 05/27/21 13:27: PT 12.6 H, INR 1.09 05/27/21 12:55: WBC 6.60, Hgb 11.0 L, Hct 35.4 L, Plt Count 195 D Assessment & Plan Discharge Plan: Home Plan to discharge in: 24 Hours Physician Review Additional Text: COVID: negative CXR: Lungs clear Physical exam: General: Alert, In no apparent distress, Cooperative HEENT: Atraumatic, Normocephalic, PERRLA Neck: Supple, 2+ carotid pulse no bruit, JVD not distended Respiratory: Clear to auscultation bilaterally, Normal air movement Cardiovascular: Normal pulses, Regular rate/rhythm, Normal S1 S2 Gastrointestinal: Normal bowel sounds, Soft and benign, Non-distended Musculoskeletal: No clubbing, No swelling Integumentary: No breakdown, No significant lesion Neurological: Normal gait, Normal speech, Normal strength at 5/5 x4 extr, Cranial nerves 3-12 intact Impression: Dyspnea secondary to COPD and CHF exacerbation. Hypertension Chronic atrial fibrillation on chronic anticoagulation therapy GERD Bipolar disorder HIV Chronic pain Chronic renal disease stage III Plan Patient was given IV Lasix with improvement. Patient doing well. Patient also given Solu-Medrol for COPD. Will plan for discharge home. Continue with home medications. Will taper steroid at discharge. Continue home oxygen. See discharge summary for details. Time Spent Managing Pts Care (In Minutes): 55
[2021-05-28] MEDS ORDERED: MORPHINE 2 MG/ML SYR ONE (06:33)
--- NOTE | 2021-05-28 07:34 | RAD REPORT ---
EXAM DESCRIPTION: Patrick Single View05/28/2021 6:43 am CLINICAL HISTORY: Shortness of breath COMPARISON: May 27, 2021 FINDINGS: Pulmonary vascular congestion is present. Lungs appear clear. Heart remains enlarged. No significant change since the prior exam
--- NOTE | 2021-05-28 07:49 | P.DS ---
Admission Date: 05/27/21 Discharge Date: 05/28/21 Primary Care Provider: Dr. Rahman Disposition: ROUTINE DISCHARGE Discharge Condition: GOOD Reason for Admission: Shortness of breath Consultations: none Procedures: COVID: negative CXR: COMPARISON: April 2021 FINDINGS: The lungs appear clear of acute infiltrate. The heart is mildly to moderately enlarged IMPRESSION: No acute abnormalities displayed Medical Problem List: Dyspnea secondary to acute on chronic diastolic CHF and COPD exacerbation on chronic oxygen Hypertension Atrial fibrillation on chronic anticoagulation therapy GERD with hiatal hernia Bipolar disorder HIV Chronic pain Brief History of Present Illness: 66-year-old female with history of chronic diastolic CHF, COPD on chronic oxygen, HIV, hypertension, bipolar disorder, GERD with hiatal hernia. Patient presented with shortness of breath. ER suspected CHF exacerbation. Patient was given Lasix in the ER with minimal improvement. The patient was admitted for observation. Patient recently hospitalized for CHF and COPD exacerbation. Patient seen by cardiology at that time. Hospital Course: Patient presented with shortness of breath secondary to acute on chronic diastolic CHF and COPD exacerbation. Patient uses home oxygen. Patient recently hospitalized for CHF and COPD. Chest x-ray unremarkable. Patient was given IV Lasix with improvement. Patient also received IV Solu-Medrol. At discharge for her symptoms diastolic CHF, patient will continue with the 1500 cc/day fluid restriction and low-salt diet. Recommend to monitor her weight daily. If her weight increases by more than 5 pounds she is to contact her PCP for further recommendation. At discharge she will continue with Lasix 40 mg daily. Further adjustment in medication can be done by her PCP if with increase shortness of breath and edema to the lower extremity. Recommend follow-up with PCP within 1 week to follow-up his hospitalization. Recommend follow-up with cardiology to further address her CHF. Education on CHF provided. For her COPD overall stable. At discharge she will continue with home oxygen to maintain sats above 93%. At discharge we will continue with prednisone 10 mg 1 pill twice daily for 7 days then 1 pill once daily for 7 days. Patient will continue with Dulera 2 puff twice daily. Patient will continue with albuterol 1 unit dose 3 times a day as needed for shortness of breath. Recommend follow-up with pulmonology in 1 to 2 weeks to follow-up his hospitalization. Recommend follow-up with her PCP to follow-up this hospitalization. Patient may continue with home health and physical therapy at discharge. Patient with chronic renal disease stage III. This appears stable. Recommend no further use of nonsteroidal anti-inflammatories. Future medications may need to be renally dosed. Recommend to recheck labBMP in 1 to 2 weeks to monitor progress. Patient with hypertension. At discharge she will continue with her medicationsNorvasc 10 mg daily, metoprolol 100 mg 1 pill twice daily, hydralazine 50 mg 1 pill 3 times a day and lisinopril 40 mg daily. Recommend to maintain blood pressure less 130/80. If blood pressures remain above 140/90 she is to contact her PCP for further recommendation. Patient with atrial fibrillation on chronic anticoagulation therapy. At discharge she will continue with her medicationsaspirin 81 mg daily, amiodarone 200 mg daily, and Eliquis 5 mg 1 pill twice daily. Recommend follow-up with her PCP and cardiology as directed. Patient with bipolar disorder. At discharge she will continue with her medications-Wellbutrin XL 150 mg daily, buspirone 30 mg 1 pill twice daily, and Zoloft 200 mg daily. Patient with chronic pain. Patient may take Tylenol as needed for pain. Patient should follow-up with pain management to further address this issue. 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 Patient with HIV. At discharge she will continue with her current medications- Descovy 200/25 mg 1 pill daily and and Isentress 400 mg 1 pill twice daily recommend follow-up with her HIV specialist as directed. Patient with GERD. At discharge we will continue with Dexilant 60 mg daily. Patient also takes docusate daily for chronic constipation. Vital Signs/Physical Exam: Temp Pulse Resp BP Pulse Ox 68 18 166/93 H 94 05/28/21 07:47 05/28/21 07:47 05/28/21 07:47 05/28/21 07:47 General: Alert, In no apparent distress, Oriented x3, Cooperative HEENT: Atraumatic Neck: Supple Respiratory: Clear to auscultation bilaterally, Normal air movement Cardiovascular: Normal pulses, Regular rate/rhythm Gastrointestinal: Normal bowel sounds, No tenderness, No masses, No rebound, No guarding Integumentary: No tenderness/swelling, No erythema, No warmth, No cyanosis Neurological: Normal speech, Normal strength at 5/5 x4 extr, Normal tone, Normal affect Laboratory Data at Discharge: WBC 7.70 K/uL (4.3-10.9) D 05/28/21 02:27 Hgb 11.2 g/dL (12.0-15.0) L 05/28/21 02:27 Hct 34.9 % (36.0-45.0) L 05/28/21 02:27 Plt Count 244 K/uL (152-406) D 05/28/21 02:27 PT 12.6 SECONDS (9.5-12.5) H 05/27/21 13:27 INR 1.09 05/27/21 13:27 Sodium 138 mmol/L (136-145) 05/28/21 02:27 Potassium 3.7 mmol/L (3.5-5.1) 05/28/21 02:27 BUN 31 mg/dL (7-18) H 05/28/21 02:27 Creatinine 1.32 mg/dL (0.55-1.3) H 05/28/21 02:27 Glucose 165 mg/dL (74-106) H 05/28/21 02:27 Total Bilirubin 0.4 mg/dL (0.2-1.0) 05/28/21 02:27 AST 16 U/L (15-37) 05/28/21 02:27 ALT 24 U/L (12-78) 05/28/21 02:27 Alkaline Phosphatase 78 U/L (45-117) 05/28/21 02:27 Home Medications: Raltegravir Potassium [Isentress] 1 tab PO BID 02/28/12 Sertraline [Zoloft*] 2 tab PO DAILY 09/15/12 Metoprolol Tartrate 100 mg PO BID #60 tablet 02/03/20 Apixaban [Eliquis] 1 tab PO BID 07/30/20 Emtricitabine/Tenofov Alafenam [Descovy 200-25 mg Tablet] 1 tab PO DAILY 03/05/21 Hydralazine HCl 50 mg PO TID 03/05/21 Amlodipine Besylate 1 tab PO DAILY 03/30/21 Buspirone HCl 30 mg PO BID 03/30/21 Dexlansoprazole [Dexilant] 60 mg PO DAILY 03/30/21 Docusate/Senna [Senokot-S*] 1 tab PO DAILY PRN 03/30/21 buPROPion HCL [Bupropion Xl] 1 tab PO DAILY 04/03/21 Ferrous Sulfate [Iron] 325 mg PO DAILY 30 Days #30 tablet 04/15/21 Albuterol Inhaler [Ventolin Inhaler*] 2 puff IH TID PRN #1 05/28/21 Amiodarone HCl [Cordarone*] 200 mg PO DAILY #30 tab 05/28/21 Furosemide [Lasix] 40 mg PO DAILY #30 tablet 05/28/21 Lisinopril [Zestril] 1 tab PO DAILY #30 05/28/21 Mometasone/Formoterol [Dulera 200 Mcg/5 Mcg Inhaler] 2 puff IH BID #1 inhaler 05/28/21 Prednisone [Sterapred Ds] 10 mg PO SEECOM #21 tab 05/28/21 New Medications: Amiodarone HCl [Cordarone*] 200 mg PO DAILY #30 tab Mometasone/Formoterol [Dulera 200 Mcg/5 Mcg Inhaler] 2 puff IH BID #1 inhaler Furosemide [Lasix] 40 mg PO DAILY #30 tablet Prednisone [Sterapred Ds] 10 mg PO SEECOM #21 tab Albuterol Inhaler [Ventolin Inhaler*] 2 puff IH TID PRN #1 PRN Reason: Shortness Of Breath Lisinopril [Zestril] 1 tab PO DAILY #30 Physician Discharge Instructions: Patient presented with shortness of breath secondary to acute on chronic diastolic CHF and COPD exacerbation. Patient uses home oxygen. Patient recently hospitalized for CHF and COPD. Chest x-ray unremarkable. Patient was given IV Lasix with improvement. Patient also received IV Solu-Medrol. At discharge for her symptoms diastolic CHF, patient will continue with the 1500 cc/day fluid restriction and low-salt diet. Recommend to monitor her weight daily. If her weight increases by more than 5 pounds she is to contact her PCP for further recommendation. At discharge she will continue with Lasix 40 mg daily. Further adjustment in medication can be done by her PCP if with increase shortness of breath and edema to the lower extremity. Recommend follow-up with PCP within 1 week to follow-up his hospitalization. Recommend follow-up with cardiology to further address her CHF. Education on CHF provided. For her COPD overall stable. At discharge she will continue with home oxygen to maintain sats above 93%. At discharge we will continue with prednisone 10 mg 1 pill twice daily for 7 days then 1 pill once daily for 7 days. Patient will c ontinue with Dulera 2 puff twice daily. Patient will continue with albuterol 1 unit dose 3 times a day as needed for shortness of breath. Recommend follow-up with pulmonology in 1 to 2 weeks to follow-up his hospitalization. Recommend follow-up with her PCP to follow-up this hospitalization. Patient may continue with home health and physical therapy at discharge. Patient with chronic renal disease stage III. This appears stable. Recommend no further use of nonsteroidal anti-inflammatories. Future medications may need to be renally dosed. Recommend to recheck labBMP in 1 to 2 weeks to monitor progress. Patient with hypertension. At discharge she will continue with her medicationsNorvasc 10 mg daily, metoprolol 100 mg 1 pill twice daily, hydralazine 50 mg 1 pill 3 times a day and lisinopril 40 mg daily. Recommend to maintain blood pressure less 130/80. If blood pressures remain above 140/90 she is to contact her PCP for further recommendation. Patient with atrial fibrillation on chronic anticoagulation therapy. At discharge she will continue with her medicationsaspirin 81 mg daily, amiodarone 200 mg daily, and Eliquis 5 mg 1 pill twice daily. Recommend follow-up with her PCP and cardiology as directed. Patient with bipolar disorder. At discharge she will continue with her medications-Wellbutrin XL 150 mg daily, buspirone 30 mg 1 pill twice daily, and Zoloft 200 mg daily. Patient with chronic pain. Patient may take Tylenol as needed for pain. Patient should follow-up with pain management to further address this issue. 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 Patient with HIV. At discharge she will continue with her current medications- Descovy 200/25 mg 1 pill daily and and Isentress 400 mg 1 pill twice daily recommend follow-up with her HIV specialist as directed. Patient with GERD. At discharge we will continue with Dexilant 60 mg daily. Patient also takes docusate daily for chronic constipation. Diet: AHA Activity: Ad pricila Followup: Lele Rahman DO, DO [Primary Care Provider] - Time spent managing pt's care (in minutes): 55
[2021-05-28 08:29] VITALS: O2SAT 100
[2021-05-28 08:34] VITALS: BP 155/103
[2021-05-28] MEDS ORDERED: Emtricitabine/Tenofov Alafenam [Descovy 200-25 Mg Tablet] PO SCH (09:00)
[2021-05-28] MEDS ORDERED: RALTEGRAVIR POTASSIUM 400 MG TABLET PO SCH (09:00)
[2021-05-28] MEDS ORDERED: FERROUS SULFATE 325 MG TAB PO SCH (09:00)
[2021-05-28] MEDS ORDERED: BUPROPION HCL XL 150 MG TAB PO SCH (09:00)
[2021-05-28] MEDS ORDERED: predniSONE 10 MG TAB PO SCH (09:00)
[2021-05-28] MEDS ORDERED: SERTRALINE HCL 100 MG TAB PO SCH (09:00)
[2021-05-28] MEDS ORDERED: DEXLANSOPRAZOLE 30 MG PO SCH (09:00)
[2021-05-28] MEDS ORDERED: ZINC SULFATE 220 MG CAP PO SCH (09:00)
[2021-05-28 09:35] VITALS: TEMP 98.7
== END 2021-05-28 09:15 | disposition home or self-care (01) ==
LOC: ER 12:05 → ERHOLD 19:30
PROVIDERS: ADMIT Internal Medicine; ATTEND Family Medicine
DX: I13.0 Hypertensive heart and chronic kidney disease with heart failure and stage 1 through stage 4 chronic kidney disease, or unspecified chronic kidney disease (principal); I50.33 Acute on chronic diastolic (congestive) heart failure; N18.30 Chronic kidney disease, stage 3 unspecified; D63.1 Anemia in chronic kidney disease; J44.1 Chronic obstructive pulmonary disease with (acute) exacerbation; Z99.81 Dependence on supplemental oxygen; I48.91 Unspecified atrial fibrillation; K21.9 Gastro-esophageal reflux disease without esophagitis; K44.9 Diaphragmatic hernia without obstruction or gangrene; B20 Human immunodeficiency virus [HIV] disease; G89.29 Other chronic pain; I25.10 Atherosclerotic heart disease of native coronary artery without angina pectoris; E78.5 Hyperlipidemia, unspecified; F31.9 Bipolar disorder, unspecified; B19.20 Unspecified viral hepatitis C without hepatic coma; G43.909 Migraine, unspecified, not intractable, without status migrainosus; F41.9 Anxiety disorder, unspecified; F10.11 Alcohol abuse, in remission; Z20.822 Contact with and (suspected) exposure to COVID-19; Z79.01 Long term (current) use of anticoagulants; Z88.2 Allergy status to sulfonamides; Z88.8 Allergy status to other drugs, medicaments and biological substances; Z88.3 Allergy status to other anti-infective agents; Z90.49 Acquired absence of other specified parts of digestive tract; Z87.891 Personal history of nicotine dependence; Z83.3 Family history of diabetes mellitus; Z82.49 Family history of ischemic heart disease and other diseases of the circulatory system; Z82.3 Family history of stroke; Z83.79 Family history of other diseases of the digestive system; Z84.1 Family history of disorders of kidney and ureter; Z80.6 Family history of leukemia; Z80.1 Family history of malignant neoplasm of trachea, bronchus and lung
CPT/HCPCS: 96365; 93005; 85025 ×2; 80048; 36415; 85610; 84484; 80053; 83880; 0240U; 71045 ×2; 94760 ×2; 96375; 99285; J1940; J3475; J2270; J2930; G0378 ×3; J3490

== ENCOUNTER 2021-05-30 18:53 | Emergency (ER) | payer OTHER ==
--- OUTSIDE RECORDS SUMMARY | 2021-05-30 19:04 | XMS REPORT | Continuity of Care Document ---
:1955 Author Organization [facility] t Address [address] [place] [address] Care Team Providers Name Role Phone Francisco Rahman Primary Care Physician Ashely Attending Clinician Unavailable HEMATPOUR Attending Clinician Unavailable Ronald DHILLON Attending Clinician Prabhu SANCHEZ Attending Clinician Unavailable Luisana Maharaj NP Attending Clinician Yazmin JENKINS Attending Clinician [facility] Attending Clinician Unavailable Marika Bal Attending [...] Number Effective Date Expiration Date Christian lloyd [facility] [id number] 2012 STAR PLUS 00:00:00 Problems Condition Condition Condition Status Onset Resolution Last Treating Co mments Source Name Details Category Date Date Treatment Clinician Date Gastropare Gastropare Disease Active Overview : Methodi sis sis 4-[address] 00:00: [facility] 00 note l might be different from the original. Added automatic ally from request for surgery [id number] Dysphagia Dysphagia Disease Active Overview: Methodi 4-[address] 00:00: [facility] this [facility] 00 note l might be different from the original. 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:00: [place] shoulder shoulder 00 Medica l arthroplas arthroplas Br anch ty ty Posttrauma Posttrauma Disease Active U nivers tic stress tic stress 09-27 it y of disorder disorder 00:00: [facility] 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 00:00: [place] virus virus 00 Medical (HIV) (HIV) Branch disease disease Bipolar 2 Bipolar 2 Disease Active Uni vers disorder disorder 11-18 ity of 00:00: [facility] Chronic Chronic Disease Active Univers hepatitis hepatitis 11-18 ity of C C 00:00: [facility] Hypertensi Hypertensi Disease Active U nivers on on 11-18 ity of 00:00: [facility] Allergies, Adverse Reactions, Alerts Allergy Allergy Status Severity Reaction(s) Onset Inactive Treating Comm ents Source Name Type Date Date Clinician Metoclop Propensi Active [place] ramide ty to 12-12 Health adverse 00:00: reaction 00 s Butorpha Drug Active Unknown - Unive rs nol Allergy See comments 11-25 ity of 00:00: [facility] Sulfamet Propensi Active UT hoxazole [...] Propensi Active Method i ramide ty to 04 st Hcl adverse 00:00: Hospita reaction 00 [...] Stop Date Source Natural father Diabetes [facility] Natural father Other - see comments [facility] Natural father Coronary Heart Univer [facility] Natural father Hypertension [facility] Natural father Kidney disease Method [facility] Natural mother Cancer [facility] [place] Social History Social Habit Start Date Stop Date Quantity Comments Source History [facility] Health Alcohol Comment History [facility] Alcohol Std Drinks History [facility] Alcohol Binge Exposure to Not sure [facility] SARS-CoV-2 (event) History of tobacco Smoker Method ist use Hospital Alcohol intake 2021-02-23 2021-02-23 Ex-drinker [facility] 00:00:00 00:00:00 (finding) Cigarettes smoked 2020-12-08 2020-12-[address] current (pack per 00:00:00 00:00:00 Hospita l day) - Reported Cigarette 2020-12-08 2020-12-08 Religion pack-years 00:00:00 00:00:00 Hospital Tobacco use and 2020-10-31 2020-10-31 Smokeless tobacco [facility] exposure 00:00:00 00:00:00 non-user History [facility] 2020-10-31 2020-10-31 1 [facility] Alcohol Frequency 00:00:00 00:00:00 Tobacco Comment 2015-02-14 2015-02-14 Smokes approx 1-2 Un iversity of 00:00:00 00:00:00 cigarettes per [place] [facility] porfirio day when she Branch smokes Sex [birth year] At [birth year] [facility] 00:00:00 00:00:00 Smoking Status Start Date Stop Date Source Former smoker 2020-12-08 00:00:00 2020-12-08 00:00:00 [facility] Unknown if ever smoked [facility] Medications Ordered Filled Start Stop Current Ordering Indication Dosage Frequency Signature Comments Components Source Medication Medication Date Date Medication? Clinician (SIG) Name Name LORazepam 1 2021- Yes [id number] 1mg Take 1 Univers mg tablet 05-25 tablet by ity of 00:00: 05:59 mouth 3 [place] 00 :00 (three) Medical times Branch daily as needed (anxiety) for up to 21 days. LORazepam 2021- Yes [id number] 1mg Take 1 [facility] mg tablet 05-25 tablet by ity of 00:00: 05:59 mouth 3 [place] 00 :00 (three) Medical times Branch daily as needed (anxiety) for up to 21 days. SERTraline 2020-05 Yes [id number] 200mg Take 2 Univers 100 mg 2-21 tablets by ity of tablet 00:00: mouth [place] 00 daily. Medical Branch busPIRone 2020-05 Yes [id number] 30mg Take 1 Un matt 30 mg 2-21 tablet by ity of tablet 00:00: mouth 2 [place] 00 (two) Medical times Branch daily. buPROPion 2020-05 Yes [id number] 150mg Take 1 U nivers XL 2-21 tablet by ity of (WELLBUTRIN 00:00: mouth [place] XL) 150 mg 00 daily. Medical 24 hr Branch tablet SERTraline 2020-05 Yes [id number] 200mg Take 2 Univers 100 mg 2-21 tablets by ity of tablet 00:00: mouth [place] 00 daily. Medical Branch busPIRone 2020-05 Yes [id number] 30mg Take 1 Un matt 30 mg 2-21 tablet by ity of tablet 00:00: mouth 2 [place] 00 (two) Medical times Branch daily. buPROPion 2020-05 Yes [id number] 150mg Take 1 U nivers XL 2-21 tablet by ity of (WELLBUTRIN 00:00: mouth [place] XL) 150 mg 00 daily. Medical 24 hr Branch tablet LORazepam 2 2020-05- No [id number] 2mg Take 1 Univers mg tablet 06-28 tablet by ity of 00:00: 00:00 mouth 2 [place] 00 :00 (two) Medical times Branch daily as needed (anxiety). LORazepam 2 2020-05- No [id number] 2mg Take 1 Univers mg tablet 05-25 tablet by ity of 00:00: 00:00 mouth 2 [place] 00 :00 (two) Medical times Branch daily as needed (anxiety). raltegravir Yes [id number] 400mg Take 1 Univers (ISENTRESS) 9-24 tablet by ity of 400 mg 00:00: mouth 2 [place] tablet 00 (two) Medical times Branch daily. raltegravir Yes [id number] 400mg Take 1 Univers (ISENTRESS) 9-24 tablet by ity of 400 mg 00:00: mouth 2 [place] tablet 00 (two) Medical times Branch daily. buPROPion 2020- No [id number] 150mg Take 1 Univers XL 01-28 tablet by ity of (WELLBUTRIN 00:00: [place] XL[place] 150 mg 00 :00 daily. Medical 24 hr Branch tablet SERTraline 2020- No [id number] 200mg Take 2 Univers 100 mg 01-28 tablets by ity of tablet 00:00: 00:00 mouth [place] 00 :00 daily. Medical Branch busPIRone 2020- No [id number] 30mg Take 1 U nivers 30 mg 01-19 tablet by ity of tablet 00:00: 00:00 mouth 2 [place] 00 :00 (two) Medical times Branch daily. metoprolol 2021- No [id number] Take 1 UT tartrate 12-15 tablet Health (Lopressor) 00:00: 05:59 (100 mg 100 MG 00 :00 total) by tablet mouth 2 (two) times a day AND 0.5 tablets (50 mg total) every night. metoprolol 2021- No [id number] Take 1 UT tartrate 12-15 tablet Health [...] (affected area in groin) hydrALAZINE Yes 50mg Q.[id number] Take 50 mg Methodi (APRESOLINE 7-[id number] ) 50 MG [...] Hospita tablet 25 daily. l nystatin-tr Yes [id number] Apply to [facility] 11-25 area(s) 3 ity of cream 00:00: (three) [place] 00 times Medical daily. Branch emtricitabi Yes [id number] Take one Univers ne-tenofovi 7-06 po daily ity of r alafen 00:00: [place] (DESCOVY) 00 Medical tablet Branch nystatin-tr Yes [id number] Apply to [facility] 11-25 area(s) 3 ity of cream 00:00: (three) [place] 00 times Medical daily. Branch emtricitabi Yes [id number] Take one Univers ne-tenofovi 7-06 po daily ity of r alafen 00:00: [place] (DESCOVY) 00 Medical tablet Branch budesonide- 2020- No 1{puff} QD Inhale 1 Methodi formoteroL 6-25 06-[address] (SYMBICORT) 19:37: 00:00 morning. H ospita 160-4.5 02 :00 l mcg/actuati on inhaler hydrALAZINE Yes [id number] 50mg Q.[id number] Take 1 UT (Apresoline 10-31 [id number] tablet (50 Health ) 50 MG 00:00: 3D mg total) tablet 00 by mouth 3 (three) times a day. hydrALAZINE 2020- No [id number] 50mg Q.[id number] Take 1 UT (Apresoline 6-11 - [id number] tablet (50 Health ) 50 MG 00:00: 04:59 3D mg total) tablet 00 :00 by mouth 3 (three) times a day. hydrALAZINE 2020- No [id number] 50mg Q.[id number] Take 1 UT (Apresoline 10-31 [id number] tablet (50 Health ) 50 MG 00:00: 04:59 3D mg total) tablet 00 :00 by mouth 3 (three) times a day. hydrALAZINE 1- No [id number] 50mg Q.[id number] Take 1 UT (Apresoline 10-31 [id number] tablet (50 Health ) 50 MG 00:00: 04:59 3D mg total) tablet 00 :00 by mouth 3 (three) times a day. hydrALAZINE 2020- No [id number] 50mg Q.[id number] Take 1 UT (Apresoline 10-31 [id number] tablet (50 Health ) 50 MG 00:00: 04:59 3D mg total) tablet 00 :00 by mouth 3 (three) times a day. Breztri 2020-0 Yes [facility] Aerosphere 6-09 [facility] 160-9-4.8 00:00: MCG/ACT 00 aerosol Breztri 2020-0 Yes [place] [facility] [address] 160-9-4.8 00:00: MCG/ACT 00 aerosol Breztri 2020-0 Yes [place] [facility] [address] 160-9-4.8 00:00: MCG/ACT 00 aerosol Breztri 2020-0 Yes [place] [facility] [address] [facility] 160-9-4.8 00:00: MCG/ACT 00 aerosol Breztri 2020-0 Yes [place] [facility] [address] 160-9-4.8 00:00: MCG/ACT 00 aerosol albuterol 2020-0 Yes UT (2.5 6-02 Health MG/3ML) 00:00: 0.083% 00 nebulizer solution albuterol 2020-0 Yes UT (2.5 6-02 Health MG/3ML) 00:00: 0.083% 00 nebulizer solution albuterol 2020-0 Yes UT (2.5 6-02 Health MG/3ML) 00:00: 0.083% 00 nebulizer solution albuterol 2020-0 Yes UT (2.5 6-02 Health MG/3ML) 00:00: 0.083% 00 nebulizer solution albuterol 2021-0 Yes UT (2.5 6-02 Health MG/3ML) 00:00: [...] Health 100 MG 00:00: tablet 00 mupirocin 2020-0 Yes UT (Bactroban) 5-28 Health 2 % 00:00: ointment 00 mupirocin 2020-0 Yes UT (Bactroban) 5-28 Health 2 % 00:00: ointment 00 mupirocin 2020-0 Yes UT (Bactroban) 5-28 Health 2 % 00:00: ointment 00 mupirocin 2020-0 Yes UT (Bactroban) 5-28 Health 2 % 00:00: ointment 00 mupirocin Yes UT (Bactroban) 28 Health 2 % 00:00: ointment 00 nystatin 2020- No [id number] Q.25D Take 5 mL Methodi (MYCOSTATIN 10-06 06-01 (500,000 st ) 100,000 00:00: 04:59 [...] 40 MG EC 00 tablet pantoprazol 2020-0 2021- No 40mg Q.5D Take 2 Met hodi [...] Take 2 mg Me thodi (ATIVAN) 2 09-[address] MG tablet 13:51: 00:00 [...] 4-10 (Same as: l 14:00: Zoloft) Marty pantoprazol No Notes: Caesar lisa e 4-10 Tablet l 14:00: should not [place] 00 be chewed or crushed. (Same as: Protonix) Amiodarone No Notes: Memor ia 4-10 (Same as: l 14:00: Cordarone) [place] Amlodipine No Notes: Memor ia 4-10 (Same as: l 14:00: Norvasc) [place] emtricitabi No Notes: Caesar lisa ne 200 MG / 4-10 (Same as: l tenofovir 14:00: Descovy) Herm ariel alafenamide 00 Non-formul 25 MG Oral nancy Tablet [Descovy] Sertraline No Notes: Memor ia 4-10 (Same as: l 14:00: Zoloft) Marty pantoprazol No Notes: Caesar lisa e 4-10 Tablet l 14:00: should not [place] 00 be chewed or crushed. (Same as: Protonix) Amiodarone No Notes: Memor ia 4-10 (Same as: l 14:00: Cordarone) [place] Amlodipine No Notes: Memor ia 4-10 (Same as: l 14:00: Norvasc) [place] emtricitabi No Notes: Caesar lisa ne 200 MG / 4-10 (Same as: l tenofovir 14:00: Descovy) Herm ariel alafenamide 00 Non-formul 25 MG Oral nancy Tablet [Descovy] Sertraline No Notes: Memor ia 4-10 (Same as: l 14:00: Zoloft) [place] 00 pantoprazol No Notes: Caesar lisa e [...] ia 4-10 (Same as: l 14:00: Zoloft) [place] 00 pantoprazol No Notes: Caesar lisa e 4-10 Tablet l 14:00: should not [place] 00 be chewed or crushed. (Same as: Protonix) Amiodarone No Notes: Memor ia 4-10 (Same as: l 14:00: Cordarone) [place] 00 Amlodipine No Notes: Memor ia 4-10 (Same as: l 14:00: Norvasc) [place] 00 emtricitabi No Notes: Caesar lisa ne 200 MG / 4-10 (Same as: l tenofovir 14:00: Descovy) Herm ariel alafenamide 00 Non-formul 25 MG Oral nancy Tablet [Descovy] Sertraline No Notes: Memor ia 4-10 (Same as: l 14:00: Zoloft) [place] 00 pantoprazol No Notes: Acesar lisa e 4-10 Tablet l 14:00: should [...] M emoria 4-10 interfere l 02:00: w/enteral [place] 00 feeds - Take 1 hr before or 2 hr after antacids, dairy pdt, meals & minerals - On empty stomach. For patients unable to swallow tablet, dissolve in 10mL - 30mL of water or juice and stir before giving. (Same As: Carafate) Saline No Notes: Memoria Flush 0.9% 4-10 (Same as: l 02:00: BD [place] 00 Posiflush) Eliquis No Notes: Memoria 4-10 Same as: l 02:00: Eliquis [place] Hydralazine No Notes: Caesar lisa Hydrochlori 4-10 (Same as: l de 50 MG 02:00: Apresoline Her mitchell Oral Tablet 00 ) May interfere w/enteral feedings Take With Food Sucralfate No Notes: May M emoria 4-10 interfere l 02:00: w/enteral [place] 00 feeds - Take 1 hr before or 2 hr after antacids, dairy pdt, meals & minerals - On empty stomach. For patients unable to swallow tablet, dissolve in 10mL - 30mL of water or juice and stir before giving. (Same As: Carafate) Saline No Notes: Memoria Flush 0.9% 4-10 (Same as: l 02:00: BD [place] 00 Posiflush) Eliquis No Notes: Memoria 4-10 [...] M emoria 4-10 interfere l 02:00: w/enteral [place] 00 feeds - Take 1 hr before [...] M emoria 4-10 interfere l 02:00: w/enteral [place] 00 feeds - Take 1 hr before or 2 hr after antacids, dairy pdt, meals & minerals - On empty stomach. For patients unable to swallow tablet, dissolve in 10mL - 30mL of water or juice and stir before giving. (Same As: Carafate) Saline No Notes: Memoria Flush 0.9% 4-10 (Same as: l 02:00: BD [place] Posiflush) Eliquis No Notes: Memoria 4-10 Same as: l 02:00: Eliquis [place] 00 Hydralazine No Notes: Caesar lisa Hydrochlori 4-10 (Same as: l de 50 MG 02:00: Apresoline Her mitchell Oral Tablet 00 ) May interfere w/enteral feedings Take With Food Sucralfate No Notes: May M emoria 4-10 interfere l 02:00: w/enteral [place] 00 feeds - Take 1 hr before [...] Memoria 4-10 Same as: l 02:00: Eliquis [place] 00 Hydralazine No Notes: Caesar lisa Hydrochlori [...] not exceed l #3 00:12: 4gm/day of [place] acetaminop hen. (Same as: Tylenol with Codeine # 3) acetaminoph No Notes: Do M emoria en-codeine 4-10 not exceed l #3 00:12: 4gm/day of [place] acetaminop hen. (Same as: Tylenol with Codeine [...] not exceed l #3 00:12: 4gm/day of [place] acetaminop hen. (Same as: Tylenol with Codeine # 3) acetaminoph No Notes: Do M emoria en-codeine 4-10 not exceed l #3 00:12: 4gm/day of [place] 00 acetaminop hen. (Same as: Tylenol with [...] tartrate 4-09 tab, l 22:00: Route: PO, [place] 00 Drug form: TAB, BID, Dosing Weight 97.273, kg, Start date: 08/29/20 17:00:00 CDT, Duration: 30 day, Stop date: 09/28/20 9:00:00 CDT Buspirone 2021-0 No Notes: Memori a 08-29 [...] oria 4-09 tab, l 22:00: Route: PO, [place] 00 Drug form: TAB, BID, Dosing Weight [...] oria 4-09 tab, l 22:00: Route: PO, [place] Drug form: TAB, BID, Dosing Weight 97.273, kg, Start date: 08/29/20 17:00:00 CDT, Duration: 30 day, Stop date: 09/28/20 9:00:00 CDT metoprolol 1-0 No 100 mg, 1 Me moria tartrate - tab, l 22:00: Route: PO, [place] 00 Drug form: TAB, BID, Dosing Weight 97.273, kg, Start date: 08/29/20 17:00:00 CDT, Duration: 30 day, Stop date: 09/28/20 9:00:00 CDT Raltegravir 2020-0 No 400 mg, 1 M emoria 400 MG Oral - tab, l Tablet 22:00: Route: PO, Skylar nn [facility] Drug form: TAB, BID, Dosing Weight 97.273, [...] - (Same As: l 22:00: BuSpar) Lisinopril 2020-0 No 40 mg, 1 Mem oria 4-09 tab, l 22:00: Route: PO, [place] Drug form: TAB, BID, Dosing Weight 97.273, [...] 17:07: as:MORPhin [place] 00 e Sulfate) Morphine 2020-0 No Notes: Memoria 4-09 (Same l 17:07: as:MORPhin [place] 00 e Sulfate) Morphine 2021-0 No Notes: Memoria 4-09 (Same l 17:07: as:MORPhin [place] 00 e Sulfate) Morphine No Notes: Memoria 4- (Same l 17:07: as:MORPhin [place] 00 e Sulfate) Morphine No Notes: Memoria 4-09 (Same l 17:07: as:MORPhin [place] 00 e Sulfate) Morphine No Notes: Memoria 4- (Same l 17:07: as:MORPhin [place] 00 e Sulfate) Morphine No Notes: Memoria 4-09 (Same l 17:07: as:MORPhin [place] 00 e Sulfate) buPROPion 0 No 150 mg, 1 Mem [...] ONCE, Stop date: 08/29/20 10:40:00 CDT glycopyrrol 2021-0 No Route: IV, Memoria ate [...] 30 tab, 0 coated Refill(s), tablet Pharmacy: [facility] 149, 162.56, cm, 08/29/20 5:30:00 CDT, Height, 97.273, kg, 08/29/20 5:30:00 CDT, Weight pantoprazol 2020-0 Yes 40 mg = 1 M emoria e 40 mg 4-09 tab, PO, l oral 15:27: Daily, # Marty enteric 00 30 tab, 0 coated Refill(s), tablet Pharmacy: [facility] 149, 162.56, cm, 08/29/20 5:30:00 CDT, Height, 97.273, kg, 08/29/20 5:30:00 CDT, Weight pantoprazol 2020-0 Yes 40 mg = 1 M emoria e 40 mg 4-09 tab, PO, l oral 15:27: Daily, # [place] enteric 00 30 tab, 0 coated Refill(s), tablet Pharmacy: [facility] 149, 162.56, cm, 08/29/20 5:30:00 CDT, Height, 97.273, kg, 08/29/20 5:30:00 CDT, Weight pantoprazol 1-0 Yes 40 mg = 1 M emoria e 40 mg 4-09 tab, PO, l oral 15:27: Daily, # Marty enteric 00 30 tab, 0 coated Refill(s), tablet Pharmacy: [facility] 149, 162.56, cm, 08/29/20 5:30:00 CDT, Height, 97.273, kg, 08/29/20 5:30:00 CDT, Weight pantoprazol 1-0 Yes 40 mg = 1 M emoria e 40 mg 4-09 tab, PO, l oral 15:27: Daily, # Marty enteric 00 30 tab, 0 coated Refill(s), tablet Pharmacy: [facility] 149, 162.56, cm, 08/29/20 5:30:00 CDT, Height, 97.273, kg, 08/29/20 5:30:00 CDT, Weight pantoprazol 1-0 Yes 40 mg = 1 M emoria e 40 mg 4-09 tab, PO, l oral 15:27: Daily, # [place] enteric 00 30 tab, 0 coated Refill(s), tablet Pharmacy: [facility] 149, 162.56, cm, 08/29/20 5:30:00 CDT, Height, 97.273, kg, 08/29/20 5:30:00 CDT, Weight pantoprazol 1-0 Yes 40 mg = 1 M emoria e 40 mg 4-09 tab, PO, l oral 15:27: Daily, # [place] enteric 00 30 tab, 0 coated Refill(s), tablet Pharmacy: [facility] 149, 162.56, cm, 08/29/20 5:30:00 CDT, Height, 97.273, kg, 08/29/20 5:30:00 CDT, Weight pantoprazol 1-0 No 40 mg = 1 M emoria e 40 mg 4-09 tab, PO, l oral 15:26: Daily, # [place] enteric 00 30 tab, 0 coated Refill(s) tablet sucralfate 2020-0 Yes 1 gm = 1 Mem oria 1 g oral 4-09 tab, PO, l tablet 15:26: Q12H, # 28 Skylar nn 00 tab, 0 Refill(s), Pharmacy: [facility] 149, 162.56, cm, 08/29/20 5:30:00 CDT, Height, 97.273, kg, 08/29/20 5:30:00 CDT, Weight pantoprazol 2020-0 No 40 mg = 1 M emoria e 40 mg 4-09 tab, PO, l oral 15:26: Daily, # [place] enteric 00 30 tab, 0 coated Refill(s) tablet sucralfate 2020-0 Yes 1 gm = 1 Mem oria 1 g oral 4-09 tab, PO, l tablet 15:26: Q12H, # 28 [place] nn 00 tab, 0 Refill(s), Pharmacy: [facility] 149, 162.56, cm, 08/29/20 [...] [place]yl[place] nn 00 tab, 0 Refill(s), Pharmacy: [facility] 149, 162.56, cm, 08/29/20 5:30:00 CDT, Height, 97.273, kg, 08/29/20 5:30:00 CDT, Weight pantoprazol 2020-0 No 40 mg = 1 M emoria e 40 mg 4-09 tab, PO, l oral 15:26: Daily, # [place] enteric 00 30 tab, 0 coated Refill(s) tablet sucralfate 2020-0 Yes 1 gm = 1 Mem oria 1 g oral 4-09 tab, PO, l tablet 15:26: Q12H, # 28 [place] nn 00 tab, 0 Refill(s), Pharmacy: [facility] 149, 162.56, cm, 08/29/20 5:30:00 CDT, Height, 97.273, kg, 08/29/20 5:30:00 CDT, Weight pantoprazol 2020-0 No 40 mg = 1 M emoria e 40 mg 4-09 tab, PO, l oral 15:26: Daily, # [place] enteric 00 30 tab, 0 coated Refill(s) tablet sucralfate 2020-0 Yes 1 gm = 1 Mem oria 1 g oral 4-09 tab, PO, l tablet 15:26: Q12H, # 28 [place] nn 00 tab, 0 Refill(s), Pharmacy: [facility] 149, 162.56, cm, 08/29/20 5:30:00 CDT, Height, 97.273, kg, 08/29/20 5:30:00 CDT, Weight pantoprazol 2020-0 No 40 mg = 1 M emoria e 40 mg 4-09 tab, PO, l oral 15:26: Daily, # [place] enteric 00 30 tab, 0 coated Refill(s) tablet sucralfate 2020-0 Yes 1 gm = 1 Mem oria 1 g oral 4-09 tab, PO, l tablet 15:26: Q12H, # 28 [place] nn 00 tab, 0 Refill(s), Pharmacy: [facility] 149, 162.56, cm, 08/29/20 5:30:00 CDT, Height, 97.273, kg, 08/29/20 5:30:00 CDT, Weight pantoprazol 2020-0 No 40 mg = 1 M emoria e 40 mg 4-09 tab, PO, l oral 15:26: Daily, # [place] enteric 00 30 tab, 0 coated Refill(s) tablet sucralfate 2020-0 Yes 1 gm = 1 Mem oria 1 g oral 4-09 tab, PO, l tablet 15:26: Q12H, # 28 [place] nn 00 tab, 0 Refill(s), Pharmacy: [facility] 149, 162.56, cm, 08/29/20 5:30:00 CDT, Height, 97.273, kg, 08/29/20 5:30:00 CDT, Weight Saline 2020-0 No Notes: Memoria Flush 0.9% - (Same as: l 15:25: BD [place] 00 Posiflush) Lorazepam No Notes: Memori a 4-09 (Same as: l 15:25: Ativan) [place] 00 Saline No Notes: Memoria Flush 0.9% 4-09 (Same as: l 15:25: BD [place] 00 Posiflush) Lorazepam No Notes: Memori a 4-09 (Same as: l 15:25: Ativan) Saline No Notes: Memoria Flush 0.9% 4-09 (Same as: l 15:25: BD [place] 00 Posiflush) Saline No Notes: Memoria Flush 0.9% 4-09 (Same as: l 15:25: BD [place] 00 Posiflush) Lorazepam No Notes: Memori a 4-09 (Same as: l 15:25: Ativan) Lorazepam No Notes: Memori a 4-09 (Same as: l 15:25: Ativan) [place] 00 Saline No Notes: Memoria Flush 0.9% 4-09 (Same as: l 15:25: BD [place] 00 Posiflush) Lorazepam No Notes: Memori a 4-09 (Same as: l 15:25: Ativan) Saline No Notes: Memoria Flush 0.9% 4-09 (Same as: l 15:25: BD [place] 00 Posiflush) Lorazepam No Notes: Memori a 4-09 (Same as: l 15:25: Ativan) Saline No Notes: Memoria Flush 0.9% 4-09 (Same as: l 15:25: BD [place] 00 Posiflush) Lorazepam No Notes: Memori a 4-09 (Same as: l 15:25: Ativan) Isuprel HCl No Route: IV, Memoria (ANES) 0.2 4-09 Drug form: l mg + 15:00: INJ, [...] Drug form: l mg + 15:00: INJ, [place] Dosing Weight 97.3, kg, Start date: 08/29/20 10:00:00 CDT, Stop date: 08/29/20 11:00:00 CDT Isuprel HCl 2020-0 No Route: IV, Memoria (ANES) 0.2 08-29 Drug form: l mg + 15:00: INJ, [place] Dosing Weight 97.3, kg, Start date: 08/29/20 10:00:00 CDT, Stop date: 08/29/20 11:00:00 CDT Isuprel HCl 2020-0 No Route: IV, Memoria (ANES) 0.2 08-29 Drug form: l mg + 15:00: INJ, Marty Dosing Weight 97.3, kg, Start date: 08/29/20 10:00:00 CDT, Stop date: 08/29/20 11:00:00 CDT Isuprel HCl 2020-0 No Route: IV, Memoria (ANES) 0.2 08-29 Drug form: l mg + 15:00: INJ, [place] Dosing Weight 97.3, kg, Start date: 08/29/20 [...] 08-29 Drug form: l 14:18: INJ, ONCE, [place] 00 Stop date: 08/29/20 9:18:00 CDT Labetalol 1-0 No 10 mg, Memori a 08-29 Route: l 14:01: IVP, [place] 00 Q5Min, Dosing Weight 97.273, kg, PRN [...] lisa 08-29 Route: l 14:01: IVP, PRN, [place] 00 Dosing Weight 97.273, kg, PRN Benzodiaze [...] Memori a 08-29 Route: l 14:01: IVP, [place] 00 Q5Min, Dosing Weight 97.273, kg, PRN Elevated BP, Start date: 08/29/20 9:01:00 CDT, Duration: 5 doses or times, Stop date: Limited # of times Acetaminoph 2020-0 No 1,000 mg, M emoria en 08-29 Route: PO, l 14:01: Drug form: [place] 00 TAB, ONCE, Dosing Weight 97.273, kg, [...] Memori a 08-29 Route: l 14:01: IVP, [place] 00 Q2MIN, Dosing Weight 97.273, kg, PRN Narcotic Reversal, Start date: 08/29/20 9:01:00 CDT, Duration: 8 doses or times, Stop date: Limited # of times Ondansetron 2020-0 No 4 mg, Memor ia 08-29 Route: l 14:01: IVP, ONCE, [place] 00 Dosing Weight 97.273, kg, PRN Nausea & Vomiting, Start date: 08/29/20 9:01:00 CDT Labetalol 2020-0 No 10 mg, Memori a 08-29 Route: l 14:01: IVP, [place] 00 Q5Min, Dosing Weight 97.273, kg, PRN Elevated BP, Start date: 08/29/20 9:01:00 CDT, Duration: 5 doses or times, Stop date: Limited # of times Acetaminoph 2020-0 No 1,000 mg, M emoria en 08-29 Route: PO, l 14:01: Drug form: [place] 00 TAB, ONCE, Dosing Weight 97.273, kg, [...] Flumazenil 1-0 No 0.2 mg, Caesar lisa 4-09 Route: l 14:01: IVP, PRN, Marty 00 Dosing Weight 97.273, kg, PRN Benzodiaze pine Reversal, Initial dose, Start date: 08/29/20 9:01:00 CDT, Duration: 30 day, Stop date: 09/28/20 9:00:00 CDT Naloxone 1-0 No 0.4 mg, Memori a 08-29 Route: l 14:01: IVP, [place] 00 Q2MIN, Dosing Weight 97.273, kg, PRN [...] 08-29 Route: PO, l 14:01: Drug form: [place] 00 TAB, ONCE, Dosing Weight 97.273, kg, [...] oria ne 08-29 Route: l 14:01: IVP, [place] 00 Q5Min, Dosing Weight 97.273, kg, PRN Pain Score 7-10, Start date: 08/29/20 9:01:00 CDT, Duration: 4 doses or times, Stop date: Limited # of times Labetalol 2021-0 No 10 mg, Memori a 08-29 Route: l 14:01: IVP, [place] 00 Q5Min, Dosing Weight 97.273, kg, PRN [...] lisa 08-29 Route: l 14:01: IVP, PRN, [place] 00 Dosing Weight 97.273, kg, PRN Benzodiaze pine Reversal, Initial dose, Start date: 08/29/20 9:01:00 CDT, Duration: 30 day, Stop date: 09/28/20 9:00:00 CDT Naloxone 2021-0 No 0.4 mg, Memori a 08-29 Route: l 14:01: IVP, [place] 00 Q2MIN, Dosing Weight 97.273, kg, PRN [...] Memori a 08-29 Route: l 14:01: IVP, [place] 00 Q5Min, Dosing Weight 97.273, kg, PRN [...] oria ne 08-29 Route: l 14:01: IVP, [place] 00 Q5Min, Dosing Weight 97.273, kg, PRN Pain Score 7-10, Start date: 08/29/20 9:01:00 CDT, Duration: 4 doses or times, Stop date: Limited # of times Flumazenil 1-0 No 0.2 mg, Caesar lisa 08-29 Route: l 14:01: IVP, PRN, [place] 00 Dosing Weight 97.273, kg, PRN Benzodiaze pine Reversal, Initial dose, Start date: 08/29/20 9:01:00 CDT, Duration: 30 day, Stop date: 09/28/20 9:00:00 CDT Naloxone 2021-0 No 0.4 mg, Memori a 08-29 Route: l 14:01: IVP, [place] 00 Q2MIN, Dosing Weight 97.273, kg, PRN Narcotic Reversal, Start date: 08/29/20 9:01:00 CDT, Duration: 8 doses or times, Stop date: Limited # of times Ondansetron 1-0 No 4 mg, Memor ia 08-29 Route: l 14:01: IVP, ONCE, [place] 00 Dosing Weight 97.273, kg, PRN Nausea & Vomiting, Start date: 08/29/20 9:01:00 CDT Labetalol 2021-0 No 10 mg, Memori a 08-29 Route: l 14:01: IVP, [place] 00 Q5Min, Dosing Weight 97.273, kg, PRN Elevated BP, Start date: 08/29/20 9:01:00 CDT, Duration: 5 doses or times, Stop date: Limited # of times Acetaminoph 2021-0 No 1,000 mg, M emoria en 4-09 Route: PO, l 14:01: Drug form: Marty [...] oria ne 08-29 Route: l 14:01: IVP, [place] 00 Q5Min, Dosing Weight 97.273, kg, PRN [...] Memori a 08-29 Route: l 14:01: IVP, [place] 00 Q2MIN, Dosing Weight 97.273, kg, PRN Narcotic Reversal, Start date: 08/29/20 9:01:00 CDT, Duration: 8 doses or times, Stop date: Limited # of times Ondansetron 2020-0 No 4 mg, Memor ia 08-29 Route: l 14:01: IVP, ONCE, [place] 00 Dosing Weight 97.273, kg, PRN Nausea & Vomiting, Start date: 08/29/20 9:01:00 CDT lidocaine 2020-0 No Route: IV, Me moria (ANES) 08-29 Drug form: l 13:52: INJ, ONCE, Marty Stop date: 08/29/20 8:52:00 CDT rocuronium 2021-0 [...] CDT rocuronium 2020-0 No Route: IV, Emerald suarezria (ANES) 08-29 Drug form: l 13:52: INJ, [...] CDT rocuronium 2020-0 No Route: IV, Emerald suarezria (ANES) 08-29 Drug form: l 13:52: INJ, [...] 08-29 Drug form: l 13:42: INJ, ONCE, [place] Stop date: 08/29/20 8:42:00 CDT fentaNYL 2020-0 No Route: IV, Mem oria (ANES) 08-29 Drug form: l 13:42: INJ, ONCE, [place] 00 Stop date: 08/29/20 8:42:00 CDT fentaNYL [...] Drug form: l 10 13:15: INJ, Start [place] microgram date: 08/29/20 8:15:00 CDT, Stop date: 08/29/20 9:15:00 CDT norepinephr 2020-0 No Route: IV, Memoria ine (ANES) 4- Drug form: l 10 13:15: INJ, Start [place] microgram 00 date: 08/29/20 8:15:00 CDT, Stop date: 08/29/20 9:15:00 CDT norepinephr 2020-0 No Route: IV, Memoria ine (ANES) 4- Drug form: l 10 13:15: INJ, Start [place] microgram 00 date: 08/29/20 8:15:00 CDT, Stop date: 08/29/20 9:15:00 CDT norepinephr 2020-0 No Route: IV, Memoria ine (ANES) - Drug form: l 10 13:15: INJ, Start [place] microgram 00 date: 08/29/20 8:15:00 CDT, Stop date: 08/29/20 9:15:00 CDT Sodium 2020-0 No Route: IV, Memor ia Chloride 4-09 Total l 0.9% IV 12:30: Volume: [place] (ANES) 1000 00 1,000, mL Start date: [...] CDT, Stop date: 08/29/20 8:30:00 CDT busPIRone 1-0 Yes 30 mg = 1 Mem oria [...] Patel n 00 tab, 0 Refill(s) busPIRone 1-0 Yes 30 mg = 1 Mem oria 30 mg oral 4-09 tab, PO, l tablet 11:43: BID, # 60 Patel n 00 tab, 0 Refill(s) busPIRone 1-0 Yes 30 mg = 1 Mem oria 30 mg oral 4-09 tab, PO, l tablet 11:43: BID, # 60 Patel n 00 tab, 0 Refill(s) busPIRone 1-0 Yes 30 mg = 1 Mem oria [...] PO, l Hydrochlori 11:42: Q24H, # 30 [place] de 150 MG 00 tab, 0 Extended Refill(s) Release Tablet 24 HR Yes 150 mg = 1 Memori a Bupropion 4-09 tab, PO, l Hydrochlori 11:42: Q24H, # 30 [place] de 150 MG 00 tab, 0 Extended Refill(s) Release Tablet apixaban 5 Yes 5 mg, PO, Me moria MG Oral 08-29 Q12H, tab, l Tablet 11:41: 0 Marty [Eliquis] 00 Refill(s), For Atrial Fibrilatio n apixaban 5 2020-0 Yes 5 mg, PO, Me moria MG Oral 4- Q12H, tab, l Tablet 11:41: 0 [place] [Eliquis] 00 Refill(s), For Atrial Fibrilatio n [...] tab, PO, l tablet 11:38: Daily, # [place] 00 90 tab, 3 Refill(s) AMIODarone 0 Yes 200 mg = 1 M emoria 200 mg oral 4-09 tab, PO, l tablet 11:38: Daily, # [place] 00 90 tab, 3 Refill(s) AMIODarone 2020-0 Yes 200 mg = 1 M emoria 200 mg oral 4-09 tab, PO, l tablet 11:38: Daily, # [place] 00 90 tab, 3 Refill(s) AMIODarone Yes 200 mg = 1 M emoria 200 mg oral 4-09 tab, PO, l tablet 11:38: Daily, # [place] 00 90 tab, 3 Refill(s) AMIODarone 2020-0 Yes 200 mg = 1 M emoria 200 mg oral 4-09 tab, PO, l tablet 11:38: Daily, # [place] 00 90 tab, 3 Refill(s) AMIODarone 2020-0 Yes 200 mg = 1 M emoria 200 mg oral 4-09 tab, PO, l tablet 11:38: Daily, # [place] 00 90 tab, 3 Refill(s) AMIODarone 2020-0 Yes 200 mg = 1 M emoria 200 mg oral 4-09 tab, PO, l tablet 11:38: Daily, # Marty 00 90 tab, 3 Refill(s) normal 0 No 1,000 mL, Memori a [...] No 1,000 mL, Memori a saline 0.9% - Rate: 100 l IV 1,000 mL 10:30: ml/hr, Herm ariel 00 Infuse over: 10 hr, Route: IV, Dosing Weight 97.273 kg, Total Volume: 1,000, Start date: 08/29/20 5:30:00 CDT, Duration: 30 day, Stop date: 09/28/20 5:29:00 CDT, 2.13, m2, 0 normal 2020-0 No 1,000 mL, Memori a saline 0.9% - Rate: 100 l IV 1,000 mL 10:30: ml/hr, Herm ariel 00 Infuse over: 10 hr, Route: IV, Dosing Weight 97.273 kg, Total Volume: 1,000, Start date: 08/29/20 5:30:00 CDT, Duration: 30 day, Stop date: 09/28/20 5:29:00 CDT, 2.13, m2, 0 normal 2020-0 No 1,000 mL, Memori a saline 0.9% - Rate: 100 l IV 1,000 mL 10:30: [...] CDT, 2.13, m2, 0 pantoprazol 2020- No Vitalyo di e 08-29 (PROTONIX) 00:00: 00:00 Hospit a 40 MG EC 00 :00 l tablet sucralfate 2020- No Method i (CARAFATE) 08-29 05-17 st 1 gram 00:00: 00:00 Hospita tablet 00 :00 l Eliquis 5 2020-0 Yes [facility] mg tablet 08-16 st 00:00: Hospita 00 l apixaban 2020-0 Yes 5mg Take 5 mg Univ ers (ELIQUIS) 5 3-17 by mouth 2 it y of mg tablet 08:18: (two) [place] 30 times Medical daily. Branch amiodarone Yes 100mg Take 100 Un matt 100 mg 3-17 mg by ity of tablet 08:18: mouth [place] 30 daily. Medical Branch apixaban Yes 5mg Take 5 mg Univ ers (ELIQUIS) 5 3-17 by mouth 2 it y of mg tablet 08:18: (two) [place] 30 times Medical daily. Branch amiodarone Yes 100mg Take 100 Un matt 100 mg 3-17 mg by ity of tablet 08:18: mouth [place] 30 daily. Medical Branch predniSONE Yes [facility] (Deltasone) 3-13 [facility] 20 MG 00:00: tablet 00 predniSONE 2020-0 Yes [facility] (Deltasone) 3-13 Health 20 MG 00:00: tablet 00 predniSONE 2020-0 Yes [facility] (Deltasone) 3-13 Health 20 MG 00:00: tablet 00 predniSONE 2020-0 Yes [facility] (Deltasone) 3-13 Health 20 MG 00:00: tablet 00 predniSONE 2020-0 Yes [facility] (Deltasone) 3-13 Health 20 MG [...] awake for 30 days. budesonide 2019-05- No [id number] .5mg Q.5D Take 2 mL [facility] (PULMICORT) [...] day for 30 days. acetaminoph 2019-05- [place] [id number] 1{tbl} Q6H Take 1 [facility] en-codeine 07-0420 [...] ity of ) 25 mg 08:06: daily. [place] tablet 41 Medical Branch lisinopril 2019-05 Yes [...] mouth ity of 10 mg 08:06: daily. [place] tablet 41 [facility] esomeprazol 2019-05 Yes 40mg Take 40 mg Univers e (NEXIUM) 0-12 by mouth 2 ity of 40 mg 08:06: (two) [place] capsule 41 times Medical daily. Branch albuterol Yes Univers 90 4-14 ity of mcg/actuati 00:00: [place] on inhaler 00 Medical Branch albuterol 0 Yes Univers 90 4-14 ity of mcg/actuati 00:00: [place] on inhaler 00 Medical [place] albuterol Yes albuterol [facility] (2.5 2-11 sulfate [...] %) solution solution for nebulizati on albuterol 2020-0 Yes albuterol [facility] (2.5 2-11 sulfate Health MG/3ML) 00:00: 2.5 mg/3 0.083% 00 mL (0.083 nebulizer %) solution solution for nebulizati on albuterol 2020-0 Yes albuterol [facility] (2.5 2-11 [...] 2020-0 Yes 1{each} 1 each. [facility] -hydroCHLOR 06-18 Health Othiazide 00:00: (Dyazide) 00 37.5-25 MG [...] (Dyazide) 00 37.5-25 MG capsule metoprolol 2019-0 2020- No 100mg Q12H Take 100 U [...] Immunizations Ordered Filled Immunization Date Status Comments [facility] e Immunization Name Name PFIZER COVID-19 2020-07-23 Completed Religion MRNA VACCINATION 00:00:00 [facility] PFIZER COVID-19 2020-07-02 Completed Religion MRNA VACCINATION 00:00:00 Hospital Influenza Virus 2017-03-08 Completed Universit y of Vaccine 00:00:00 [facility] Influenza Virus 2017-03-08 Completed Universit y of Vaccine 00:00:00 [facility] Influenza Virus 2014-01-30 Completed Universit y of Vaccine (3+ yrs) 00:00:00 [facility] Branch Pneumococcal 13 2014-01-30 Completed Universit y of Conjugate, PCV13 00:00:00 [facility] (Prevnar 13) Branch Influenza Virus 2014-01-30 Completed Universit y of Vaccine (3+ yrs) 00:00:00 [facility] Pneumococcal 13 2014-01-30 Completed Universit y of Conjugate, PCV13 00:00:00 [facility] (Prevnar 13) Branch Pneumococcal 2012-02-16 Completed University o f Polysaccharide, 00:00:00 [facility] ical PPSV23 (PNEUMOVAX) Branch Influenza Virus 2012-02-16 Completed Universit y of Vaccine 00:00:00 [facility] PPD (TB) 2012-02-16 Completed University of 00:00:00 [facility] Pneumococcal 2012-02-16 Completed University o f Polysaccharide, 00:00:00 [facility] ical PPSV23 (PNEUMOVAX) Branch Influenza Virus 2012-02-16 Completed Universit y of Vaccine 00:00:00 [facility] PPD (TB) 2012-02-16 Completed University of 00:00:00 [facility] Hep B, Adol or Pedi 2011-09-01 Completed Unive rsity of Dosage 00:00:00 [facility] Hep B, Adol or Pedi 2011-09-01 Completed Unive rsity of Dosage 00:00:00 [facility] Hep B, Adol or Pedi 2011-03-17 Completed Unive rsity of Dosage 00:00:00 [facility] Hep B, Adol or Pedi 2011-03-17 Completed Unive rsity of Dosage 00:00:00 [facility] Influenza Virus 2011-02-10 Completed Universit y of Vaccine 00:00:00 [facility] Hep B, Adol or Pedi 2011-02-10 Completed Unive rsity of Dosage 00:00:00 [facility] Influenza Virus 2011-02-10 Completed Universit y of Vaccine 00:00:00 [facility] Hep B, Adol or Pedi 2011-02-10 Completed Unive rsity of Dosage 00:00:00 [facility] PPD (TB) 2010-11-18 Completed University of 00:00:00 [facility] TDAP (ADACEL) 2010-11-18 Completed University of VACCINE 00:00:00 [facility] PPD (TB) 2010-11-18 Completed University of 00:00:00 [facility] TDAP (ADACEL) 2010-11-18 Completed University of VACCINE 00:00:00 [facility] HEPATITIS A 2004-03-02 Completed University of 00:00:00 [facility] HEPATITIS A 2004-03-02 Completed University of 00:00:00 [facility] HEPATITIS A 2003-08-01 Completed University of 00:00:00 [facility] HEPATITIS A 2003-08-01 Completed University of 00:00:00 [facility] Pneumococcal 2001-10-04 Completed University o f Polysaccharide, 00:00:00 [place] Med ical PPSV23 (PNEUMOVAX) Branch PPD (TB) 2001-10-04 Completed University of 00:00:00 [facility] Pneumococcal 2001-10-04 Completed University o f Polysaccharide, 00:00:00 [place] Med ical PPSV23 (PNEUMOVAX) Branch PPD (TB) 2001-10-04 Completed University of 00:00:00 [facility] Vital Signs Vital Name Observation Time Observation Value Comments Source Systolic blood 2020-12-12 13:03:00 144 mm[facility]Hg[facility] Diastolic blood 2020-12-12 13:03:00 85 mm[Hg] [facility] Heart rate 2020-12-12 13:03:00 59 /[facility] 2020-12-12 12:56:00 162.6 cm [facility] Body weight 2020-12-12 12:56:00 98.249 [facility] BMI 2020-12-12 12:56:00 37.18 kg/m2 [facility] Systolic blood 2020-12-12 13:03:00 144 mm[Hg] [...] 2021-01-28 14:08:00 141 mm[Hg] [facility]iver [facility] Diastolic blood 2021-01-28 14:08:00 79 mm[Hg] Unive rsity of [facility] Heart rate 2021-01-28 14:08:00 56 /min [facility] Respiratory rate 2021-01-28 14:02:00 18 /[facility] 2021-01-28 14:02:00 162.6 cm [facility] Body weight 2021-01-28 14:02:00 99.111 kg [facility] BMI 2021-01-28 14:02:00 37.51 kg/m2 [facility] Systolic blood 2020-12-08 15:48:00 125 mm[Hg] [facility] 2020-12-08 15:48:00 76 mm[Hg] [facility] pressure Heart rate 2020-12-08 15:48:00 64 /[facility] Body temperature 2020-12-08 15:48:00 36.61 Amina [facility] Respiratory rate 2020-12-08 15:48:00 17 /min [facility] Body height 2020-12-08 15:48:00 162.6 [facility] Body weight 2020-12-08 15:48:00 98.884 kg [facility] BMI 2020-12-08 15:48:00 37.42 kg/m2 [facility] Oxygen saturation in 2020-12-08 15:48:00 97 /min [facility] Arterial blood by Pulse oximetry Body temperature 2020-12-02 14:14:00 36.83 Amina [facility] Respitory Rate 2020-08-30 13:00:00 Memori al Marty Systolic (mm Hg) 2020-08-30 13:00:00 Caesar rial [place] Diastolic (mm Hg) 2020-08-30 13:00:00 Mem orial [place] Systolic (mm Hg) 2020-08-30 11:00:00 Caesar rial [place] Diastolic (mm Hg) 2020-08-30 11:00:00 Mem orial Marty Temperature Oral (F) 2020-08-30 11:00:00 98.4 F [facility] Respitory Rate 2020-08-30 11:00:00 Memori al [place] Respitory Rate 2020-08-30 10:00:00 Memori al [place] Systolic (mm Hg) 2020-08-30 10:00:00 Caesar rial [place] Diastolic (mm Hg) 2020-08-30 10:00:00 Mem orial [place] Temperature Oral (F) 2020-08-30 00:00:00 96.9 F [facility] Temperature Oral (F) 2020-08-29 11:26:00 [facility]6 F [facility] Height 2020-08-29 10:30:00 162.56 cm [facility] Weight 2020-08-29 10:30:00 [facility] BMI Calculated 2020-08-29 10:30:00 Memori al Marty Oxygen saturation in 2020-01-26 18:00:00 92 /min University Arterial blood by [facility] Pulse oximetry Branch Procedures Procedure Date / [...] AN ELECTIVE ENDOTRACHEAL AIRWAY 2020-09-05 [place] Flood hi Jean 16:47:23 [facility] EGD, INTRAOPERATIVE 2020-09-05 Eliseo Arce 16:27:00 Hospital PARTIAL THROMBOPLASTIN TIME (PTT) 2020-09-05 Ted Maharaj 15:04:00 [facility] PROTHROMBIN TIME WITH INR 2020-09-05 Meisenlion Method ist 15:04:00 [facility] HC COMPLETE BLD COUNT W/AUTO DIFF 2020-09-01 Ramiro Mitchell 15:45:00 [facility] PROTHROMBIN TIME WITH INR 2020-09-01 Ramiro Mitchell ist 15:45:00 Hospital PARTIAL THROMBOPLASTIN TIME (PTT) 2020-09-01 Ramiro Mitchell 15:45:00 Hospital ECG 12-LEAD 2020-09-01 Ramiro Mitchell 15:31:26 [facility] COVID-19 QUALITATIVE RT-PCR 2020-09-01 Ramiro Mitchell odist 15:24:00 [facility] COMPREHENSIVE METABOLIC PANEL 2020-09-01 Ramiro Mitchell Me thodist 15:23:00 Hospital ESTIMATED GFR 2020-09-01 Ramiro Mitchell 15:23:00 Hospital NM GASTRIC EMPTYING 2020-08-27 Eliseo Arce 19:05:[address] CHEST WO CONTRAST ABDOMEN WO 2020-08-21 Eliseo Arce CONTRAST 15:20:00 [facility] FL ESOPHAGRAM SINGLE CONTRAST 2020-08-13 Eliseo Arce thodist 15:25:00 Hospital [id number] 2020-05-07 Ted Engel 00:00:00 [facility] Hospital BASIC METABOLIC PANEL 2020-05-02 Pau Ott 15:08:00 Hospital HC COMPLETE BLD COUNT W/AUTO DIFF 2020-05-02 Pau Ott 15:08:00 Hospital MAGNESIUM LEVEL 2020-05-02 Pau Ott 15:08:00 Hospital ESTIMATED GFR 2020-05-02 Eliseo Arce 15:08:00 Hospital CBC HEMOGRAM 2020-05-01 Idalmis Montilla 11:20:00 Hospital BASIC METABOLIC PANEL 2020-05-01 Idalmis Montillaist 10:00:00 Hospital ESTIMATED GFR 2020-05-01 Idalmis Montilla Religion 10:00:00 Hospital HEPATIC FUNCTION PANEL 2020-05-01 Idalmis Montillais t 10:00:00 Hospital THYROID STIMULATING HORMONE 2020-05-01 Idalmis Montilla Met hodist 10:00:00 [facility] US DUPLEX VENOUS UPPER EXTREMITY 2020-04-30 Del Adrien, Hayd ee Religion BILATERAL 23:36:00 Hospital XR CHEST 2 VW 2020-04-30 Pau Ott 22:18:36 Hospital MIDLINE INSERTION ATTEMPT - 2020-04-30 Asim, Blesilda Me thodist UNSUCCESSFUL 17:14:34 Hospital XR ABDOMEN 1 VW PORTABLE 2020-04-[address] 15:45:00 [facility] ECG 12-LEAD 2020-04-30 Pau Ott 15:06:58 [facility] MO AN ELECTIVE ENDOTRACHEAL AIRWAY 2020-04-28 Carlee Malloy Reg grady Religion 20:57:57 [facility] REPAIR, HIATAL HERNIA, 2020-04-28 Eliseo Arce LAPAROSCOPIC, ROBOT-ASSISTED 19:38:00 [facility] pital ESOPHAGOGASTRODUODENOSCOPY (EGD) 2020-04-28 Eliseo Arce 19:38:00 [facility] POC GLUCOSE 2020-04-28 Eliseo Arce 15:01:00 Hospital SURGICAL PATHOLOGY REQUEST 2020-04-28 Eliseo Arce Metho dist 14:27:00 [facility] BASIC METABOLIC PANEL 2020-04-28 Ted Gonzalez 08:11:00 [facility] HC COMPLETE BLD COUNT W/AUTO DIFF 2020-04-28 Ted Gonzalez 08:11:00 [facility] MAGNESIUM LEVEL 2020-04-28 Ted Gonzalez 08:11:00 [facility] PHOSPHORUS LEVEL 2020-04-28 Ted Gonzalez 08:11:00 [facility] PROTHROMBIN TIME WITH INR 2020-04-28 Jignesh Gonzalez ist 08:11:00 [facility] PARTIAL THROMBOPLASTIN TIME (PTT) 2020-04-28 Ted Gonzalez 08:11:00 [facility] ESTIMATED GFR 2020-04-28 Eliseo Arce 08:11:00 Hospital TYPE AND SCREEN 2020-04-28 Eliseo Arce 08:11:00 Hospital POC GLUCOSE 2020-04-28 Eliseo Arce 05:38:00 Hospital POC GLUCOSE 2020-04-28 Eliseo Arce 02:14:00 Hospital TTE COMPLETE, WO CONTRAST, W 2020-04-27 [facility]aritan, Nieves Castro Md thodist DOPPLER ([id number]) 21:00:00 Hospital POC GLUCOSE 2020-04-27 Eliseo Arce 18:30:00 Hospital BASIC METABOLIC PANEL 2020-04-27 Eliseo Arce 12:34:00 Hospital ESTIMATED GFR 2020-04-27 Eliseo Arce 12:34:00 Hospital POC GLUCOSE 2020-04-27 Eliseo Arce 03:18:00 Hospital ECG 12-LEAD 2020-04-27 Nieves Hyde Religion 02:24:31 Hospital COVID-19 QUALITATIVE RT-PCR 2020-04-26 Vitaly Gonzalez 21:44:00 [facility] HC COMPLETE BLD COUNT W/AUTO DIFF 2020-04-26 Ted Gonzalez 09:05:00 [facility] BASIC METABOLIC PANEL 2020-04-26 Ted Gonzalez 09:05:00 [facility] MAGNESIUM LEVEL 2020-04-26 Jignesh Gonzalezist 09:05:00 [facility] PHOSPHORUS LEVEL 2020-04-26 Jignesh Gonzalezist 09:05:00 [facility] CD 4 SUBSET 2020-04-26 Eliseo Arce 09:05:00 Hospital ESTIMATED GFR 2020-04-26 Eliseo Arce 09:05:00 Hospital MISCELLANEOUS REFERRAL TEST 2020-04-26 Eliseo Arce Meth odist 09:05:00 Hospital POTASSIUM LEVEL 2020-04-26 Eliseo Arce 03:04:00 Hospital HC COMPLETE BLD COUNT W/AUTO DIFF 2020-04-26 Amirkhosravi, Religion 00:51:00 [facility] BASIC METABOLIC PANEL 2020-04-26 Amirkhosravi, Religion 00:51:00 [facility] MAGNESIUM LEVEL 2020-04-26 Amirkhosravi, Religion 00:51:00 [facility] PHOSPHORUS LEVEL 2020-04-26 Amirkhosravi, Religion 00:51:00 [facility] ESTIMATED GFR 2020-04-26 Chihara, Ray Religion 00:51:00 Hospital FL ESOPHAGRAM DOUBLE CONTRAST 2020-04-25 Chiharaleshia Ray Me thodist 17:31:[address] CHEST WO CONTRAST ABDOMEN WO 2020-04-21, Yen-Te Religion CONTRAST PELVIS WO CONTRAST 14:15:34 [facility] ital HC COMPLETE BLD COUNT W/AUTO DIFF 2020-04-21, Yen[facility]Te Religion 13:22:00 [facility] COMPREHENSIVE METABOLIC PANEL 2020-04-21, Yen-Te Me thodist 13:22:00 [facility] LIPASE LEVEL 2020-04-21, [facility]en[facility] Religion 13:22:00 [facility] LACTIC ACID LEVEL, SEPSIS - NOW 2020-04-21, Yen[facility] Religion AND REPEAT 2X EVERY 3 HOURS 13:22:00 [facility] ital ESTIMATED GFR 2020-04-21, Yen-Te Religion 13:22:00 [facility] Plan of Care Planned Activity Planned Date Details Comments Source Future Scheduled Test DIABETES: RETINAL EYE [facility] EXAM [code = DIABETES: RETINAL EYE EXAM] Future Scheduled Test DIABETIC FOOT EXAM [facility] [code = DIABETIC FOOT EXAM] Future Scheduled Test Screening for malignant [facility] neoplasm of cervix (procedure) [code = 156387181] Future Scheduled Test BREAST CANCER SCREENING [facility] [code = BREAST CANCER SCREENING] Future Scheduled Test COLONOSCOPY SCREENING [facility] [code = COLONOSCOPY SCREENING] Future Scheduled Test SHINGLES VACCINES (#1) [facility] [code = SHINGLES VACCINES (#1)] Future Scheduled Test COVID-19 VACCINE (3 - [facility] Pfizer risk 3-dose series) [code = COVID-19 VACCINE (3 - Pfizer risk 3-dose series)] Future Scheduled Test INFLUENZA VACCINE [code [facility] = INFLUENZA VACCINE] Future Scheduled Test 65+ PNEUMOCOCCAL [facility] VACCINE (4 of 4) [code = 65+ PNEUMOCOCCAL VACCINE (4 of 4)] Encounters Start End Encounter Admission Attending Care Care Encounter Source Date/Time Date/Time Type Type Clinicians Facility Department ID 2021-06-17 Inpatient WINTER Lund [id number] [facility] 08:45:00 Mike [id number] [facility] 2021-06-15 Inpatient EL WINTER Lund OUTD [id number] [facility] 10:30:00 Mike [id number] [facility] 2021-04-28 Outpatient HEMATPOUR, [facility] [id number] [place] 11:21:22 [facility] 2020-12-12 Outpatient HEMATPOUR, [facility] [id number] [place] 08:16:46 KHASHAYAR [facility]alt 2020-10-31 Outpatient HEMATPOUR, [facility] [id number] [place] 09:44:50 KHASHAYAR Healt 2020-09-30 Outpatient HEMATPOUR, [facility] [id number] [place] 13:16:03 KHASHAYAR Healt 2021-05-29 2021-05-29 Telephone Ronald, FRANCO [id number] Univers 00:00:00 00:00:00 [facility] HEALTH [id number] i of CL[place]ICS [id number] [id number] [facility] 089 Branch 2021-04-28 2021-04-28 Telephone Hematporay, UTP 6400 [id number] [place] 00:00:00 00:00:[address] [id number] Health [id number] 1 2021-01-19 2021-01-19 Telephone Prabhu [id number] Method 00:00:00 00:00:[id number] 3.430.2.7 Hospit a .3.066797 l .8 2020-12-12 2020-12-12 Office Hemat[facility], UTP 6400 1.2.840.114 12 [id number] 07:42:02 08:18:[address] 350.1.13.58 9.2.7.2.686 [id number] 1 2020-12-12 2020-12-12 Office [facility]emat[facility], UTP 6400 1.2.840.114 12 [id number] [place] 07:42:02 08:18:[address] 350.1.13.58 Health 9.2.7.2.686 [id number] 1 2020-12-09 2020-12-09 Telephone [facility], 1.2.840.1 [id number] Methodi 00:00:00 00:00:00 Sarai CorbinChelsie 04720.1.1 [address] 3.430.2.7 Hospit a .3.585884 l .8 2020-12-08 2020-12-08 [facility], 1.2.840.1 [id number] Methodi 12:35:54 23:59:00 Encounter Ray 51377.1.[address] 3.430.2.7 Hospit a .3.409630 l .8 2020-12-08 2020-12-08 [facility], 1.2.840.1 [id number] 75635 25069 Methodi 17:20:50 17:25:[address] 3.430.2.7 Hospit a .3.715698 l .8 2020-12-08 2020-12-08 [facility], 1.2.840.1 [id number] 80439 52075 Methodi 09:55:34 11:39:56 Visit Ray 75938.1.[address] 3.430.2.7 Hospit a .3.488568 l .8 2020-12-08 2020-12-08 Travel 1.2.840.1 1.2.103.836 7892 771785 Methodi 00:00:00 00:00:[address] 3.430.2.7 0.2.7.3.698 Ho spita .3.152557 084.8 l .8 2020-12-02 2020-12-02 Dispatcher Radio [facility] 1.2.840.114 8 [id number] 10:20:06 10:36:19 Visit HEALTH 350.1.13.10 [facility] 4.2.7.2.686 [id number] 316 2020-11-25 2020-11-25 Office [facility] 1.2.840.114 [id number] 65 11:06:30 11:58:14 Visit Eligioheidia R [employer]OX [employer] 350.1.13.10 REGIONAL 4.2.7.2.686 MATERNAL [id number] & CHILD 107 [facility] 2020-11-25 2020-11-25 [facility] 1.2.862.963 9102 4592 00:00:00 00:00:00 [facility] 350.1.13.10 [facility] 4.2.7.2.686 [id number] 089 2020-11-25 2020-11-25 Telephone [facility] 1.2.073.485 2591 0821 00:00:00 00:00:00 Rosnda R BOX MAKER 350.1.13.10 [facility] 4.2.7.2.686 MATERNAL [id number] & CHILD 107 [facility] 2020-11-14 2020-11-14 Abstract [facility], 1.2.840.1 [id number] 72470 91122 Methodi 00:00:00 00:00:[address] 3.430.2.7 Hospit a .3.075637 l .8 2020-11-14 2020-11-14 Telephone [facility] 1.2.840.1 [id number] 2100 733404 Methodi 00:00:00 00:00:[address] 3.430.2.7 Hospit a .3.543256 l .8 2020-11-07 2020-11-07 Telephone KIMBERLEY Ortiz 640 1.2.840.114 124 501482 00:00:00 00:00:[address] 350.1.13.58 9.2.7.2.686 352.2916854 1 2020-11-07 2020-11-07 Telephone Agustina Ortiz UTP 6400 1.2.840.11 4 [id number] [place] 00:00:00 00:00:[address] 350.1.13.58 Health 9.2.7.2.686 341.7369776 1 2020-10-31 2020-10-31 Office Hematporay UTP 6400 1.2.840.114 12 [id number] [place] 07:54:00 09:45:[address] 350.1.13.58 Health 9.2.7.2.686 [id number] 1 2020-10-30 2020-10-30 Abstract Rody Maguire UTP 6400 1.2.840.1 14 [id number] [place] 00:00:00 00:00:[address] 350.1.13.58 Health 9.2.7.2.686 [id number] 1 2020-10-27 2020-10-27 Telephone Yazmin, 1.2.840.2 [id number] 21 [id number] Methodi 00:00:00 00:00:[address] 3.430.2.7 Hospit a .3.697128 l .8 2020-10-24 2020-10-24 Telephone Clark, 1.2.840.1 [id number] 2100 747559 Methodi 00:00:00 00:00:[address] 3.430.2.7 Hospit a .3.181131 l .8 2020-10-06 2020-10-12 Telemedici Yazmin, 1.2.840.1 [id number] 21 [id number] Methodi 15:26:54 00:08:46 ne Ray 71828.1.[address] 3.430.2.7 Hospit a .3.005127 l .8 2020-09-30 2020-09-30 [facility], 1.2.840.3 [id number] 21 [id number] Methodi 00:00:00 00:00:[address] 3.430.2.7 Hospit a .3.153304 l .8 2020-09-21 2020-09-21 [facility] 1.2.840.1 1.2.132.339 4769 495729 Methodi 00:00:00 00:00:[address] 3.430.2.7 0.2.7.3.698 Ho spita .3.846957 084.8 l .8 2020-09-01 2020-09-09 Lab Paula, Min 1.2.840.1 [id number] 13249 93950 Methodi 10:13:59 01:05:[address] 3.430.2.7 Hospit a .3.453662 l .8 2020-09-06 2020-09-06 [facility] 1.2.840.1 [id number] 06652 82805 Methodi 17:42:30 23:59:[address] 3.430.2.7 Hospit a .3.998741 l .8 2020-09-06 2020-09-06 [facility], 1.2.840.1 [id number] 2100 532081 Methodi 16:50:00 17:41:00 Encounter Ray 67086.1.[address] 3.430.2.7 Hospit a .3.041895 l .8 2020-09-05 2020-09-05 [facility], 1.2.840.1 [id number] 2099 663806 Methodi 09:17:00 19:45:00 Encounter Ray [address]48.1.[address] 3.430.2.7 Hospit a .3.821328 l .8 2020-09-05 2020-09-05 [facility], 1.2.840.1 [id number] 04929 84163 Methodi 11:30:00 13:15:[address] 3.430.2.7 Hospit a .3.576330 l .8 2020-09-05 2020-09-05 Anesthesia Remigio, 1.2.840.1 [id number] 778 2856902 Methodi 11:27:00 12:20:00 Event Kirit 34746.1.1 243 s t V. 3.430.2.7 Hospit a .3.723081 l .8 2020-09-05 2020-09-05 Travel 1.2.840.1 1.2.985.112 1005 146233 Methodi 00:00:00 00:00:[address] 3.430.2.7 0.2.7.3.698 Ho spita .3.050925 084.8 l .8 2020-09-04 2020-09-04 Telephone [facility], 1.2.840.1 [id number] Methodi 00:00:00 00:00:00 Sarai Crobin. 96626.1.1 762 s t 3.430.2.7 Hospit a .3.533597 l .8 2020-09-02 2020-09-02 Telephone [facility], 1.2.840.7 [id number] Methodi 00:00:00 00:00:00 Sarai Corbin. 86403.1.1 344 s t 3.430.2.7 Hospit a .3.409936 l .8 2020-09-01 2020-09-01 Office [facility], 1.2.840.1 [id number] 98254 74090 Methodi 08:42:53 09:50:51 Visit Ray 43094.1.[address] 3.430.2.7 Hospit a .3.132828 l .8 2020-09-01 2020-09-01 [facility] 1.2.840.3 [id number] 21 [id number] Methodi 00:00:00 00:00:[address] 3.430.2.7 Hospit a .3.874451 l .8 2020-09-01 2020-09-01 Travel 1.2.840.1 1.2.781.680 6434 566309 Methodi 00:00:00 00:00:[address] 3.430.2.7 0.2.7.3.698 Ho spita .3.533659 084.8 l .8 2020-08-29 2020-08-30 [id number] 10:20:00 14:10:00 Outpatient r [place] 00 l [facility] 2020-08-29 2020-08-30 Outpatient [facility], [facility] CAR [address]500 [facility] 05:20:00 09:10:00 BEVERLY 2020-08-27 2020-08-27 [facility], 1.2.840.1 [id number] 2099 [id number] Methodi 09:55:15 23:59:00 Encounter Ray 43902.1.[address] 3.430.2.7 Hospit a .3.326790 l .8 2020-08-27 2020-08-27 Travel 1.2.840.1 1.2.517.441 1472 213618 Methodi 00:00:00 00:00:[address] 3.430.2.7 0.2.7.3.698 Ho spita .3.928060 084.8 l .8 2020-08-21 2020-08-21 Travel 1.2.840.1 1.2.711.762 4417 580805 Methodi 00:00:00 00:00:[address] 3.430.2.7 0.2.7.3.698 Ho spita .3.694246 084.8 l .8 2020-08-19 2020-08-19 Telephone Meli, 1.2.840.1 [id number] 504 [id number] Methodi 00:00:00 00:00:[address] 3.430.2.7 Hospit a .3.044400 l .8 2020-08-19 2020-08-19 Travel 1.2.840.1 1.2.493.098 3379 569552 Methodi 00:00:00 00:00:[address] 3.430.2.7 0.2.7.3.698 Ho spita .3.491150 084.8 l .8 2020-08-18 2020-08-18 Orders Carol Ann, 1.2.840.5 [id number] 2 [id number] Methodi 00:00:00 00:00:00 Only Sarai Lieberman 93494.1.1 410 s t 3.430.2.7 Hospit a .3.906288 l .8 2020-08-18 2020-08-18 Travel 1.2.840.1 1.2.663.149 4741 598658 Methodi 00:00:00 00:00:[address] 3.430.2.7 0.2.7.3.698 Ho spita .3.543908 084.8 l .8 2020-08-15 2020-08-15 Abstract [facility], 1.2.840.1 [id number] 81969 70630 Methodi 00:00:00 00:00:[address] 3.430.2.7 Hospit a .3.608956 l .8 2020-07-02 2020-08-06 Clinical 1.2.840.1 [id number] 66583 92202 Methodi 10:40:46 01:45:[address] 3.430.2.7 Hospit a .3.519672 l .8 2020-07-30 2020-07-30 Travel 1.2.840.1 1.2.229.284 8492 380371 Methodi 00:00:00 00:00:[address] 3.430.2.7 0.2.7.3.698 Ho spita .3.047414 084.8 l .8 2020-07-28 2020-07-28 Office Yazmin, 1.2.840.1 [id number] 41484 01705 Methodi 08:35:45 10:11:52 Visit Ray 80743.1.[address] 3.430.2.7 Hospit a .3.714948 l .8 2020-07-28 2020-07-28 Telephone Clark, 1.2.840.1 [id number] 2099 412451 Methodi 00:00:00 00:00:[address] 3.430.2.7 Hospit a .3.269233 l .8 2020-07-28 2020-07-28 Travel 1.2.840.1 1.2.520.643 8604 411033 Methodi 00:00:00 00:00:[address] 3.430.2.7 0.2.7.3.698 Ho spita .3.781030 084.8 l .8 2020-07-25 2020-07-25 Telephone Carol Ann, 1.2.840.3 [id number] Methodi 00:00:00 00:00:00 Sarai Lieberman 74042.1.1 314 s t 3.430.2.7 Hospit a .3.225538 l .8 2020-07-25 2020-07-25 Travel 1.2.840.1 1.2.535.744 7717 393602 Methodi 00:00:00 00:00:[address] 3.430.2.7 0.2.7.3.698 Ho spita .3.512398 084.8 l .8 2020-07-23 2020-07-23 Clinical Tori, 1.2.840.1 [id number] 45176 36287 Methodi 08:39:40 08:44:40 Support Hoang 07065.1.[address] P. 3.430.2.7 Hospit a .3.258568 l .8 2020-07-23 2020-07-23 Travel 1.2.840.1 1.2.467.522 0349 206962 Methodi 00:00:00 00:00:[address] 3.430.2.7 0.2.7.3.698 Ho spita .3.107263 084.8 l .8 2020-07-11 2020-07-11 Travel 1.2.840.1 1.2.638.488 5772 493069 Methodi 00:00:00 00:00:[address] 3.430.2.7 0.2.7.3.698 Ho spita .3.863027 084.8 l .8 2020-07-02 2020-07-02 Telephone [facility], 1.2.840.7 [id number] Methodi 00:00:00 00:00:[address] 3.430.2.7 Hospit a .3.268409 l .8 2020-07-02 2020-07-02 Travel 1.2.840.1 1.2.853.921 2305 635026 Methodi 00:00:00 00:00:[address] 3.430.2.7 0.2.7.3.698 Ho spita .3.305845 084.8 l .8 2020-06-23 2020-06-23 [facility] 1.2.840.1 [id number] 31095 01032 Methodi 09:36:17 11:00:44 Visit Ray 78019.1.[address] 3.430.2.7 Hospit a .3.069188 l .8 2020-06-23 2020-06-23 Telephone Rodas, 1.2.840.1 [id number] 2099 190666 Methodi 00:00:00 00:00:[address] 3.430.2.7 Hospit a .3.950260 l .8 2020-06-23 2020-06-23 Travel 1.2.840.1 1.2.043.516 0230 926070 Methodi 00:00:00 00:00:[address] 3.430.2.7 0.2.7.3.698 Ho spita .3.227671 084.8 l .8 2020-06-09 2020-06-09 Telephone Yazmin, 1.2.840.1 [id number] Methodi 00:00:00 00:00:[address] 3.430.2.7 Hospit a .3.362655 l .8 2020-06-06 2020-06-06 Reflamonte Ball, 1.2.840.1 [id number] 254843 3939 Methodi 00:00:00 00:00:00 Eh Lemus 66607.1.[address] 3.430.2.7 Hospit a .3.177381 l .8 2020-06-03 2020-06-03 Telephone Yazmin, 1.2.840.5 [id number] Methodi 00:00:00 00:00:[address] 3.430.2.7 Hospit a .3.493402 l .8 2020-06-02 2020-06-02 Telephone Yazmin, 1.2.840.0 [id number] Methodi 00:00:00 00:00:[address] 3.430.2.7 Hospit a .3.380115 l .8 2020-05-13 2020-05-13 Orders Provider, 1.2.840.1 [id number] 2099 484230 Methodi 00:00:00 00:00:00 Only Historical 19114.1.1 108 s t 3.430.2.7 Hospit a .3.826450 l .8 2020-05-09 2020-05-09 Telephone Carol Ann, 1.2.840.1 [id number] Methodi 00:00:00 00:00:00 Sarai Lieberman 73186.1.1 660 s t 3.430.2.7 Hospit a .3.854844 l .8 2020-05-09 2020-05-09 [facility] 1.2.840.5 [id number] Methodi 00:00:00 00:00:[address] 3.430.2.7 Hospit a .3.936956 l .8 2020-05-08 2020-05-08 [facility], 1.2.840.6 [id number] Methodi 00:00:00 00:00:[address] 3.430.2.7 Hospit a .3.388336 l .8 2020-05-07 2020-05-07 Telephone [facility], 1.2.840.0 [id number] Methodi 00:00:00 00:00:[address] 3.430.2.7 Hospit a .3.517030 l .8 2020-05-05 2020-05-05 Telephone [facility], 1.2.840.0 [id number] 21 [id number] Methodi 00:00:00 00:00:[address] 3.430.2.7 Hospit a .3.697434 l .8 2020-04-25 2020-05-03 [facility], 1.2.840.1 [id number] 2100 064494 Methodi 17:33:00 13:39:00 Encounter Ray [address]16.1.[address] 3.430.2.7 Hospit a .3.961623 l .8 2020-04-28 2020-04-28 Anesthesia Tomas Pinon 1.2.840.1 [id number] Methodi 13:38:00 19:40:00 Event Justine Catalan 28063.1.[address] 3.430.2.7 Hospit a .3.480479 l .8 2020-04-28 2020-04-28 [facility], 1.2.840.1 [id number] 52653 44071 Methodi 13:00:00 17:10:[address] 3.430.2.7 Hospit a .3.694194 l .8 2020-04-25 2020-04-25 [facility], 1.2.840.1 [id number] 2099 554415 Methodi 10:00:00 17:32:00 Encounter Ray [address]289.1.[address] 3.430.2.7 Hospit a .3.487098 l .8 2020-04-25 2020-04-25 [facility], 1.2.840.1 [id number] 99402 42959 Methodi 11:43:50 13:44:26 Visit Ray 33013.1.[address] 3.430.2.7 Hospit a .3.047078 l .8 2020-04-25 2020-04-25 Travel 1.2.840.1 1.2.263.968 2175 575446 Methodi 00:00:00 00:00:[address] 3.430.2.7 0.2.7.3.698 Ho spita .3.025928 084.8 l .8 2020-04-24 2020-04-24 Prep for [facility], 1.2.840.1 [id number] 2 [id number] Methodi 00:00:00 00:00:00 Surgery Sarai Corbin. 05091.1.1 524 s t 3.430.2.7 Hospit a .3.279187 l .8 2020-04-22 2020-04-22 Telephone Meli, 1.2.840.1 [id number] 141 1500300 Methodi 00:00:00 00:00:[address] 3.430.2.7 Hospit a .3.433625 l .8 2020-04-22 2020-04-22 Travel 1.2.840.1 1.2.694.526 6838 648288 Methodi 00:00:00 00:00:[address] 3.430.2.7 0.2.7.3.698 Ho anayta .3.484191 084.8 l .8 2020-04-21 2020-04-21 Emergency Geraldo 1.2.840.1 [id number] 2 [id number] Methodi 06:51:00 10:43:[address] 3.430.2.7 Hospit a .3.161350 l .8 2020-04-21 2020-04-21 Orders [facility], 1.2.840.1 [id number] Methodi 00:00:00 00:00:00 Only Sarai Corbin. 83648.1.1 550 s t 3.430.2.7 Hospit a .3.414748 l .8 2020-04-16 2020-04-16 Telephone [facility], 1.2.840.1 [id number] Methodi 00:00:00 00:00:00 Sarai M. 74823.1.1 673 s t 3.430.2.7 Hospit a .3.251855 l .8 2020-04-10 2020-04-10 Telephone [facility], 1.2.840.3 [id number] Methodi 00:00:00 00:00:[address] 3.430.2.7 Hospit a .3.909448 l .8 2020-04-07 2020-04-07 Telephone Nahum, 1.2.840.1 [id number] 2099 742847 Methodi 00:00:00 00:00:[address] 3.430.2.7 Hospit a .3.432257 l .8 2020-04-01 2020-04-01 Orders [facility], 1.2.840.1 [id number] 2100 089510 Methodi 00:00:00 00:00:00 Only Historical 13089.1.1 049 s t 3.430.2.7 Hospit a .3.132510 l .8 2020-03-31 2020-03-31 Travel 1.2.840.1 1.2.340.351 3759 416147 Methodi 00:00:00 00:00:[address] 3.430.2.7 0.2.7.3.698 Ho spita .3.369204 084.8 l .8 2020-03-27 2020-03-27 Telephone Paula Min 1.2.840.0 [id number] 21 [id number] Methodi 00:00:00 00:00:[address] 3.430.2.7 Hospit a .3.828627 l .8 Results Test Description Test Time Test Comments Results Result Comments Source Gastrointestinal panel 2020-12-09 04:35:05 Test Item Value Reference Range Interpretation Comme nts Adenovirus 40/41 PCR (test code = Not Detected Specimen InformationSpecimen 2373) Source: StoolSp ecimen Site: Nonpreserved Astrovirus PCR [...] Rotavirus PCR (test code = Not Detected 5579251) Salmonella PCR (test code = 4783) Not [...] PCR (test code = Not Detected 7124) [facility] Eb7348-44-31 19:17:40EXAMINATION: XR ABDOMEN 1 VW CLINICAL HISTORY: [...] Osseous structures are stable. Cholecystectomy clips are noted.[id number] [place] < 1 [id number] 19:41:02EXAMINATION: OR FL < 1 HOUR C-arm fluoroscopy was requested in OR. Location: [facility] OR room 6 Procedure: EGD WITH [...] arm fluoroscopy was requested in OR. Location: [facility] OR room 6 Procedure: EGD WITH BOTOX INJECTION INTO THE PYLORUS, ENDOFLIP, ON TABLE ESOPHAGRAM (N/A ) Start: 1140 End:1222 FluoroTime: .19sec Dose: 7.8mGy Tech: A.BIMPRESSION:Intraoperative fluoroscopic images. Radiologist was not present during the examination.Separate operative report will be issued by the physician performingthe procedure.1D2[facility]03Religion HospitalSurgical pathology request 2020-09-08 19:30:47 Test Item Value Reference Range Interpretation Comments Case number (test [id number] code = 9213049) Surgical pathology See link below for PDF report (test code = Lab Report 2255) Result status (test This is Supplemental code = 6398789) Report for [id number] [facility] 1 Vw Otnxobau2403-20-11 23:06:58EXAMINATION: XR CHEST 1 VW PORTABLE HISTORY: [...] enlarged, similar to prior. Bilateral shoulder arthroplasties. [facility]-[id number] Interface, Radiology Results - 09/06/2020 6:09PM CDT [...] silhouette is enlarged, similar to prior.Bilateral shoulder arthroplasties.[facility]-[id number] KmcybdleShusto6945-11-79 16:47:23Kirit Flood MD 09/05/2020 11:48 [address]: [...] RSI: Yes Number of Attempts at Approach: [facility] qnyu6321-95-65 23:21:56 Test Item Value Reference Range Interpretation [...] T wave abnormality, consider anterior ischemia-Abnormal ECG- [facility]wood[facility]-19 qualitative PVM6517-56-62 22:48:41 Test Item Value Reference Range Interpretation Comments Interpretation (test Negative results do code = 7331840) not preclude 2019-nCoV infection and should not be used as the sole basis for treatment or other patient management decisions. Negative results must be combined with clinical observations, patient history, and epidemiological information. COVID-19 qualitative Not-Detected Not-Detected RT-PCR result (test code = 96411-5) COVID-19 qualitative See link below for C ase Number: RT-PCR (test code = PDF Lab Report [id number] 2321) [facility]2021-04-09 16:31:00 Test Item Value Reference Range Interpretation Comments POC Activated Clotting Time (test code 153 s = POC Activated Clotting Time) [facility]PicxhhzZUKNSIPSGO4878-59-68 16:31:00 Test Item Value Reference Range Interpretation Comments POC Activated Clotting Time (test code 153 s = POC Activated Clotting Time) [facility] HospitalHmslogmFQWLJJWWLN2016-45-62 16:31:00 Test Item Value Reference Range Interpretation Comments POC Activated Clotting Time (test code 153 s = POC Activated Clotting Time) [facility] HospitalFdzcksuSMGRDFMAZT6270-60-86 16:31:00 Test Item Value Reference Range Interpretation Comments POC Activated Clotting Time (test code 153 s = POC Activated Clotting Time) [facility] HospitalPjlreefLZICRFOOVY4627-88-91 16:31:00 Test Item Value Reference Range Interpretation Comments POC Activated Clotting Time (test code 153 s = POC Activated Clotting Time) [facility] HospitalHuothqwPKDIBFHTKI8758-51-73 16:31:00 Test Item Value Reference Range Interpretation Comments POC Activated Clotting Time (test code 153 s = POC Activated Clotting Time) [place] 129471-04-09 16:31:00 Test Item Value Reference Range Interpretation Comments POC Activated Clotting Time (test code 153 s = POC Activated Clotting Time) [facility] HospitalPjhyhnaPDIQCRIHST3013-77-57 14:37:00 Test Item Value Reference Range Interpretation Comments POC Activated Clotting Time (test code 454 s = POC Activated Clotting Time) [facility] HospitalBklnfbwJHWQHAIYVJ7748-16-33 14:37:00 Test Item Value Reference Range Interpretation Comments POC Activated Clotting Time (test code 454 s = POC Activated Clotting Time) [facility] HospitalSrcnoqvMBZRGQOVQP3402-80-80 14:37:00 Test Item Value Reference Range Interpretation Comments POC Activated Clotting Time (test code 454 s = POC Activated Clotting Time) [facility] HospitalJizsicyMEOBAATUOK0334-98-89 14:37:00 Test Item Value Reference Range Interpretation Comments POC Activated Clotting Time (test code 454 s = POC Activated Clotting Time) [facility] HospitalGilybjpYVSAGHNTUP3378-01-51 14:37:00 Test Item Value Reference Range Interpretation Comments POC Activated Clotting Time (test code 454 s = POC Activated Clotting Time) [facility] HospitalTkrdngkDOAFYEFPQY0072-05-99 14:37:00 Test Item Value Reference Range Interpretation Comments POC Activated Clotting Time (test code 454 s = POC Activated Clotting Time) [facility] HospitalXwozagqYZOTLNXPWU6221-48-60 14:37:00 Test Item Value Reference Range Interpretation Comments POC Activated Clotting Time (test code 454 s = POC Activated Clotting Time) [place] 129471-04-09 14:13:00 Test Item Value Reference Range Interpretation Comments POC Activated Clotting Time (test code 354 s = POC Activated Clotting Time) [facility] HospitalPjxsmuqMVJLWREYVJ1915-88-04 14:13:00 Test Item Value Reference Range Interpretation Comments POC Activated Clotting Time (test code 354 s = POC Activated Clotting Time) [facility]ScdjpkdZEAYISTGUK1384-90-44 14:13:00 Test Item Value Reference Range Interpretation Comments POC Activated Clotting Time (test code 354 s = POC Activated Clotting Time) [facility]JccbmarJECWRJFVZU1208-01-37 14:13:00 Test Item Value Reference Range Interpretation Comments POC Activated Clotting Time (test code 354 s = POC Activated Clotting Time) [facility]MiggcmaRPWOJLZQKL9803-19-53 14:13:00 Test Item Value Reference Range Interpretation Comments POC Activated Clotting Time (test code 354 s = POC Activated Clotting Time) [facility]PynxzgrINPKOBTHQH0901-03-10 14:13:00 Test Item Value Reference Range Interpretation Comments POC Activated Clotting Time (test code 354 s = POC Activated Clotting Time) [facility]PvxdmtbWKGRJLNAKO3362-52-14 14:13:00 Test Item Value Reference Range Interpretation Comments POC Activated Clotting Time (test code 354 s = POC Activated Clotting Time) [facility] LDJADIV9584-17-33 10:37:00Negative (08/29/20 5:37 AM) [facility] HermannCHEM URCUT7647-46-75 10:37:00966Rjavfiqi HermannCHEM PANEL 2020-08-29 10:37:0028[facility] HermannCHEM CSMPK5300-02-48 10:37:001.01[facility] HermannCHEM QWYUJ5036-75-95 10:37:90127Tbudfucf HermannCHEM NHWWG8468-78-87 10:37:003.8[facility] HermannCHEM NFGTD9828-59-77 10:37:73261Bvbfxnjy HermannCHEM UDIZW4897-14-13 10:37:0028[facility] HermannCHEM IRHQT2821-44-77 10:37:009.8 [facility] HermannCHEM TXEZZ3497-48-84 10:37:0011.8[facility] HermannCHEM PANEL 2020-08-29 10:37:0059[facility] HermannCHEM NXJGK4253-11-42 10:37:002.9[facility] DjmtixaORZSCHMZAG2043-44-61 10:37:006.8[facility] QivmxiwQATELVLXHV3115-93-86 10:37:004.47[facility] PioodpmUJLYSTUAHI5899-39-08 10:37:0010.6[facility] ZFBOKUHGJG7160-58-76 10:37:0034.0[facility] HginjwbDNFGWFUYGQ2917-40-89 10:37:00 76.1[facility] ZcwlufkNWEXDAHQOZ7185-20-86 10:37:00 Test Item Value Reference Range Interpretation Comments MCH (test code = MCH) 23.8 pg 27.0-31.0 [facility] GhnqysjJRFAPYLAVG3679-27-59 10:37:0031.3[facility] HermannHEMATOLOGY 2020-08-29 10:37:0018.2[facility] HcydktgRXPBPUASAO3002-19-60 10:37:39767Llizwsyt HrwubceRUNPPDZPHW2793-75-70 10:37:007.5[facility] EdjhrafKQPJYKUZIF0489-67-15 10:37:00 Test Item Value Reference Range Interpretation Comments PT (test code = PT) 12.8 s 12.0-14.7 [facility] VykzfpbVZXCLRFWEX4211-36-47 10:37:00 Test Item Value Reference Range Interpretation Comments INR (test code = INR) 0.97 1 0.85-1.17 [facility] IceerypQGIOAMBPTS6956-36-51 10:37:00 Test Item Value Reference Range Interpretation Comments PTT (test code = PTT) 25.0 s 22.9-35.8 [facility] MqffptvIIQDNKUMJA7509-21-10 10:37:0070.5[facility] HermannHEMATOLOGY 2020-08-29 10:37:0018.8[facility] LaxpmquAFZIJHVOAO7234-81-62 10:37:009.5[facility] UwtrwsxDORBBVQOGQ6777-17-54 10:37:000.9[facility] KnklzoaLLBDOVIBPN4176-18-46 10:37:000.3[facility] AqilpxmSFPESKQKIW6300-39-09 10:37:004.8[facility] RHIQNWAXIY5193-38-10 10:37:001.3[facility] JzzkqvkTZVEBCZUWM2989-78-50 10:37:000.6 [facility] WdnblopWXCMTXNPLB5955-61-88 10:37:000.1[facility] HermannHEMATOLOGY 2020-08-29 10:37:001+ *ABN*(08/29/20 5:37 AM)[facility] RnstjioNZXJMXUNMA7413-95-67 10:37:00Not Detected (08/29/20 5:37 AM)[facility] HermannBLOOD BANK RESULTS 2020-08-29 10:37:00Negative (08/29/20 5:37 AM)[facility] HermannCHEM ETALV1708-91-73 10:37:15508Dzpsdzeo HermannCHEM SDEXS7058-58-75 10:37:0028[facility] HermannCHEM HMWOX9298-99-17 10:37:001.01[facility] HermannCHEM OWDTI4092-21-30 10:37:93019 [facility] HermannCHEM JCTAU6324-17-97 10:37:003.8[facility] HermannCHEM PANEL 2020-08-29 10:37:16546Glgtgtob HermannCHEM RJODT4416-90-56 10:37:0028[facility] HermannCHEM LSHAT3978-33-91 10:37:009.8[facility] HermannCHEM TUKCN0131-08-80 10:37:0011.8[facility] HermannCHEM ILDAI4528-95-07 10:37:0059[facility] HermannCHEM VLGZK8586-43-42 10:37:002.9[facility] AnwifogXBJICSOKNI7737-18-36 10:37:006.8 [facility] MhczsalAKZZYAMJHL7725-44-46 10:37:004.47[facility] 2020-[facility]-29 10:37:0010.6[facility] ErjdymvLHKVLVMSCP9257-07-17 10:37:0034.0[facility] GmotfgdLOAWYHBNWS8805-18-54 10:37:0076.1[facility] XujcukvYBEIWKFDAO3582-67-62 10:37:00 Test Item Value Reference Range Interpretation Comments MCH (test code = MCH) 23.8 pg 27.0-31.0 [facility] JrvrepyHBKTNTWYOA2834-06-88 10:37:0031.3[facility]annHEMATOLOGY 2020-08-29 10:37:0018.2[facility] ObmelubWWADAOXXQZ2433-84-73 10:37:99427Qjftqrru ZhfdmhvWNTUBSNKEX8349-89-31 10:37:007.5[facility] KjilhymOTXZYPUNAF9955-88-96 10:37:00 Test Item Value Reference Range Interpretation Comments PT (test code = PT) 12.8 s 12.0-14.7 [facility] OagkntaWJTEPKLWGO0458-69-68 10:37:00 Test Item Value Reference Range Interpretation Comments INR (test code = INR) 0.97 1 0.85-1.17 [facility] KjpmajcNQSRTGSZKI4142-67-33 10:37:00 Test Item Value Reference Range Interpretation Comments PTT (test code = PTT) 25.0 s 22.9-35.8 [facility] RxhcohxLUPGSLKIRO6104-38-86 10:37:0070.5[facility]annHEMATOLOGY 2020-08-29 10:37:0018.8[facility] PlhqzgzPANMCOIHAQ3870-05-58 10:37:009.5[facility] TxrpzamPVHLWNTSSU7510-76-93 10:37:000.9[facility] UkjxkhmJQHCFSTDOZ0389-67-56 10:37:000.3[facility] HzshtjpCSAHNCYLBG0673-38-44 10:37:004.8[facility] FQQYZBBBXN2505-98-07 10:37:001.3[facility] SmitgisRYEDXDMQGL7315-18-48 10:37:000.6 [facility] TqiwqgmPGGLUFHUOZ9770-74-78 10:37:000.1[facility]annHE[facility]OLOGY 2020-08-29 10:37:001+ *ABN*(08/29/20 5:37 AM)[facility] RlknuxuTBQFTRPHLT9831-67-59 10:37:00Not Detected (08/29/20 5:37 AM)[facility] B[facility] RESULTS 2020-08-29 10:37:00Negative (08/29/20 5:37 AM)[facility] HermannCHEM MAWAV7288-90-19 10:37:28216Onffysui HermannCHEM RZKMX8505-01-10 10:37:0028[facility]annCHEM XXIVQ8778-66-05 10:37:001.01[facility]annCHEM VZZBJ0670-56-99 10:37:17648 [facility]CHE[facility] FWJEQ4558-37-34 10:37:003.8[facility]annCHEM PANEL 2020-08-29 10:37:04348Toqyellw HermannCHEM ZOWAI4380-65-92 10:37:0028[facility]annCHEM CSKAH3805-35-94 10:37:009.8[facility]annCHEM VBXQL3654-67-50 10:37:0011.8[facility] HermannCHEM QLJND1758-39-06 10:37:0059[facility]annCHEM NTOEC5626-30-78 10:37:002.9[facility] TifugtbXZTXGMDIAX0618-63-12 10:37:006.8 [facility] CqbaagrCWPXJNMUAP8673-41-93 10:37:004.47[facility]annHEMATOLOGY 2020-08-29 10:37:0010.6[facility] BmortgvOSYSAIKDPM2201-86-88 10:37:0034.0[facility] RwgnaiwJVEPDRIFZW3142-81-26 10:37:0076.1[facility] DyipdsfTTBPVJRWEW6734-41-06 10:37:00 Test Item Value Reference Range Interpretation Comments MCH (test code = MCH) 23.8 pg 27.0-31.0 [facility] AeztqewIUMHFXEOIJ3649-62-97 10:37:0031.3[facility]annHE[facility]OLOGY 2020-08-29 10:37:0018.2[facility] GndzljuCOLTPKOBXG0389-85-25 10:37:45369Uhnaqlcn UhffhhjKLRNGPTMFB8981-46-13 10:37:007.5[facility] SlgcjteOGVEZLLYLS7869-79-44 10:37:00 Test Item Value Reference Range Interpretation Comments PT (test code = PT) 12.8 s 12.0-14.7 [facility] BuscuilLJSVVEQRDO4323-15-02 10:37:00 Test Item Value Reference Range Interpretation Comments INR (test code = INR) 0.97 1 0.85-1.17 [facility] VxlkalrUIRHCPMGVW5662-19-23 10:37:00 Test Item Value Reference Range Interpretation Comments PTT (test code = PTT) 25.0 s 22.9-35.8 [facility]rdurHJGJYJSKUR6722-51-09 10:37:0070.5[facility]annHEMATOLOGY 2020-08-29 10:37:0018.8[facility] YcfafwhUOWUPCETJY4162-56-98 10:37:009.5[facility] GutoirbICQLWDQUAZ0594-52-93 10:37:000.9[facility] KvfnrfaLSGRNIOMGB9387-86-57 10:37:000.3[facility] EnfxgcrXDEWVUINGQ5745-48-43 10:37:004.8[facility] KTVIWJNOBR2770-13-06 10:37:001.3[facility] WjvtwnpAWYHHVKUGK1763-34-93 10:37:000.6 [facility] IzpmivfGPHBYEJHQL2962-30-84 10:37:000.1[facility]annHEMATOLOGY 2020-08-29 10:37:001+ *ABN*(08/29/20 5:37 AM)[facility] KegrzvsRVLEILYSZU9719-13-53 10:37:00Not Detected (08/29/20 5:37 AM)[facility]annBL[facility] B[facility] RESULTS 2020-08-29 10:37:00Negative (08/29/20 5:37 AM)[facility] HermannCHEM VYSUK7258-63-28 10:37:15193Zordrqnr HermannCHEM VFJOE7374-41-07 10:37:0028[facility] HermannCHEM JPHJQ5091-91-47 10:37:001.01[facility] HermannCHEM LXVLV2076-69-37 10:37:63801 [facility]annCHEM MBYCT7545-80-15 10:37:003.8[facility] HermannCHEM PANEL 2020-08-29 10:37:86235Yantkfkr HermannCHEM MPWPR9468-30-95 10:37:0028[facility] HermannCHEM MCICR5776-06-81 10:37:009.8[facility] HermannCHEM KVJSV5559-35-62 10:37:0011.8[facility] HermannCHEM XZMLV2313-87-27 10:37:0059[facility]annCHEM DIEOQ3922-59-59 10:37:002.9[facility] FrzakrgNHNSMYWEDQ3443-01-76 10:37:006.8 [facility] ZhibrzjKNMQGXWKDF5709-32-84 10:37:004.47[facility]annHEMATOLOGY 2020-08-29 10:37:0010.6[facility] MufclvqAXDIJMGJHL7235-57-22 10:37:0034.0[facility] OneutquMUJWONASQR9398-09-78 10:37:0076.1[facility] UozanldKPEVBJLZTJ6498-10-75 10:37:00 Test Item Value Reference Range Interpretation Comments MCH (test code = MCH) 23.8 pg 27.0-31.0 [facility] GjqctvwETWQONGLNV5032-25-80 10:37:0031.3[facility]annHEMATOLOGY 2020-08-29 10:37:0018.2[facility] MwakvggBSXTIHEKBT8871-45-56 10:37:75771Gkphtwhi ImkjaquXNCFJKHZXQ1426-69-23 10:37:007.5[facility] VljgviqHJQQNUTJFP6995-83-91 10:37:00 Test Item Value Reference Range Interpretation Comments PT (test code = PT) 12.8 s 12.0-14.7 [facility] VgptmdjRQDYBRBMNZ6185-20-35 10:37:00 Test Item Value Reference Range Interpretation Comments INR (test code = INR) 0.97 1 0.85-1.17 [facility] TzalqadHRRHILFDVE6835-49-52 10:37:00 Test Item Value Reference Range Interpretation Comments PTT (test code = PTT) 25.0 s 22.9-35.8 [facility] GmjxdekHYDLJTYWIL6900-84-18 10:37:0070.5[facility]annHEMATOLOGY 2020-08-29 10:37:0018.8[facility] DpimgeyCAIZDBIYKK4388-01-31 10:37:009.5[facility] XmelwvwEVZWWWTHNI0223-12-28 10:37:000.9[facility] HutcdleVIGBAPPSMF7520-18-79 10:37:000.3[facility] GtgcgvyDIXWORGGJP9339-11-14 10:37:004.8[facility] ASRAHXSMVZ7226-47-48 10:37:001.3[facility] PfkdhlnZGAOODSBDJ1989-76-46 10:37:000.6 [facility] DsvuighUUTRUNBTEE2115-26-10 10:37:000.1[facility]annHEMATOLOGY 2020-08-29 10:37:001+ *ABN*(08/29/20 5:37 AM)[facility] TpxgrydLKQRIPJSQN0087-24-96 10:37:00Not Detected (08/29/20 5:37 AM)[facility] HermannBLOOD BANK RESULTS 2020-08-29 10:37:00Negative (08/29/20 5:37 AM)[facility] HermannCHEM KRTOS2540-77-66 10:37:10907Hngucvjv HermannCHEM DXCVT0146-43-82 10:37:0028[facility] HermannCHEM PXFYQ8490-05-38 10:37:001.01[facility] HermannCHEM MYPEM3929-89-10 10:37:22537 [facility]annCHEM JRXJB2563-99-32 10:37:003.8[facility] HermannCHEM PANEL 2020-08-29 10:37:58088Errvqaxx HermannCHEM SVTZG7840-55-94 10:37:0028[facility] HermannCHEM SBWDD5657-57-19 10:37:009.8[facility] HermannCHEM UQRFN8700-15-49 10:37:0011.8[facility] HermannCHEM GUCKU7583-30-55 10:37:0059[facility] HermannCHEM ARFVJ6620-16-15 10:37:002.9[facility] MjnjnmmQNVLLXKDEU6371-87-83 10:37:006.8 [facility] RjkmfesHTPHYNPKUY0429-68-48 10:37:004.47[facility]annHEMATOLOGY 2020-08-29 10:37:0010.6[facility] WgcdbarSSGJIMVVGC1676-14-60 10:37:0034.0[facility] ByhqbjyUIASEOASQM7253-05-06 10:37:0076.1[facility] FlvsitdOAKCZWUWJB5145-75-27 10:37:00 Test Item Value Reference Range Interpretation Comments MCH (test code = MCH) 23.8 pg 27.0-31.0 [facility] TlzeiicGJSEGXNMXU6292-01-48 10:37:0031.3[facility] HermannHEMATOLOGY 2020-08-29 10:37:0018.2[facility] IcpslhxSLEAOBPTJM8621-06-92 10:37:17500Fuutqehq AvzscuxEAVMXQGTTG3402-99-67 10:37:007.5[facility] NqzcdzgURIVZTPJXN2676-30-11 10:37:00 Test Item Value Reference Range Interpretation Comments PT (test code = PT) 12.8 s 12.0-14.7 [facility] MdpcrpjVRACOCMXNY8318-30-75 10:37:00 Test Item Value Reference Range Interpretation Comments INR (test code = INR) 0.97 1 0.85-1.17 [facility] MfvmgzsVTKKUTPLWD8152-30-98 10:37:00 Test Item Value Reference Range Interpretation Comments PTT (test code = PTT) 25.0 s 22.9-35.8 [facility] NwcylquPRGFHAPZUD6963-29-68 10:37:0070.5[facility]annHEMATOLOGY 2020-08-29 10:37:0018.8[facility] KavrpntXSIEACHUZD9387-11-20 10:37:009.5[facility] NmenkwlNPPHDUILLZ4812-56-74 10:37:000.9[facility] VezcmcaGEQBTBNQFP2285-69-15 10:37:000.3[facility] YcmzmosUOEJMCCTXY8528-34-57 10:37:004.8[facility] Amrty URGEJSGWCD1658-74-35 10:37:001.3[facility] ZzeurusOBRAVGPJRB8027-53-00 10:37:000.6 [facility] StgvedpEJLBXFBIWO0062-36-58 10:37:000.1[facility]annHEMATOLOGY 2020-08-29 10:37:001+ *ABN*(08/29/20 5:37 AM)[facility] GkroxtqHSQICCNENQ3121-48-62 10:37:00Not Detected (08/29/20 5:37 AM)[facility] HermannBLOOD BANK RESULTS 2020-08-29 10:37:00Negative (08/29/20 5:37 AM)[facility] HermannCHEM CVJRT1542-81-18 10:37:78277Xlsxarth HermannCHEM SWTLQ5464-18-75 10:37:0028[facility] HermannCHEM PNVMJ5400-17-27 10:37:001.01[facility] HermannCHEM YLXUZ1942-35-84 10:37:91661 [facility]annCHEM XGUMA2118-16-63 10:37:003.8[facility] HermannCHEM PANEL 2020-08-29 10:37:25017Scicqerz HermannCHEM WWOVA1179-89-09 10:37:0028[facility] HermannCHEM PRWHU7326-13-54 10:37:009.8[facility] HermannCHEM NJZWR5794-19-72 10:37:0011.8[facility] HermannCHEM FCRVY8835-06-27 10:37:0059[facility] HermannCHEM YZSSS6633-60-70 10:37:002.9[facility] QluevjcEZLQNFOEMR6664-38-09 10:37:006.8 [facility] YewcwcvHGXDQCNTCW7075-89-07 10:37:004.47[facility]annHEMATOLOGY 2020-08-29 10:37:0010.6[facility] KimpshwMONVOWJYFL0175-41-14 10:37:0034.0[facility] BnonxbxRVMGEQRWLA4364-22-20 10:37:0076.1[facility] QulcdjuWDBLMZHVSC1150-23-73 10:37:00 Test Item Value Reference Range Interpretation Comments MCH (test code = MCH) 23.8 pg 27.0-31.0 [facility] WxbqmxdPYNNQWNJNJ4875-72-71 10:37:0031.3[facility]annHEMATOLOGY 2020-08-29 10:37:0018.2[facility] VrecsojUVPNMWPRPD7043-37-04 10:37:78864Qltdqqqh YwwabkwFXTPAUQSBH7480-12-39 10:37:007.5[facility] CqveosnWUGILNSCAO4566-32-67 10:37:00 Test Item Value Reference Range Interpretation Comments PT (test code = PT) 12.8 s 12.0-14.7 [facility] ZkwuixsXBLRFXIFOP5922-53-18 10:37:00 Test Item Value Reference Range Interpretation Comments INR (test code = INR) 0.97 1 0.85-1.17 [facility] LwycshgMZOHDBWIJV6371-54-61 10:37:00 Test Item Value Reference Range Interpretation Comments PTT (test code = PTT) 25.0 s 22.9-35.8 [facility] ShuvuxtQVTOPWHEII1798-60-21 10:37:0070.5[facility]annHEMATOLOGY 2020-08-29 10:37:0018.8[facility] TjusqmfQRRELRAIQI6192-12-70 10:37:009.5[facility] XmxzlsaMLYAQZPKSH7630-03-47 10:37:000.9[facility] WazxkucBCISQMQRBA2001-25-26 10:37:000.3[facility] JczfoorGOWJHVTLTF5971-49-00 10:37:004.8[facility] TTITNJYTXU0654-46-94 10:37:001.3[facility] DmepghgVIDCPPEBJX6908-16-37 10:37:000.6 [facility] NyyamfbAMUZAIWRVC8669-95-48 10:37:000.1[facility]annHEMATOLOGY 2020-08-29 10:37:001+ *ABN*(08/29/20 5:37 AM)[facility] TrgzhhvQHRYTILBWC3186-60-75 10:37:00Not Detected (08/29/20 5:37 AM)[facility] HermannBLOOD BANK RESULTS 2020-08-29 10:37:00Negative (08/29/20 5:37 AM)[facility] HermannCHEM RCWSR9565-57-60 10:37:40702Cyeuakqp HermannCHEM ERWBN1157-13-96 10:37:0028[facility] HermannCHEM NBAEE3861-25-41 10:37:001.01[facility] HermannCHEM AQQRL0762-84-63 10:37:55827 [facility]annCHEM XWVQD6355-63-19 10:37:003.8[facility] HermannCHEM PANEL 2020-08-29 10:37:37495Balxceap HermannCHEM TLEGF8076-62-49 10:37:0028[facility] HermannCHEM LZPOA5188-62-68 10:37:009.8[facility] HermannCHEM UTTFZ4820-16-58 10:37:0011.8[facility] HermannCHEM FOSKC5782-05-26 10:37:0059[facility] HermannCHEM LZBDN3926-82-62 10:37:002.9[facility] EmyyzovFNTOKTIZWM0763-73-34 10:37:006.8 [facility] XixqpanXCZKUTJKAC1554-18-97 10:37:004.47[facility]annHEMATOLOGY 2020-08-29 10:37:0010.6[facility] OwfnmjiOBSAJNMNAK1887-70-69 10:37:0034.0[facility] FuvwwuqHFGHVLCGVL0458-66-63 10:37:0076.1[facility] BrrdnreRYTHWNMUOG0821-22-52 10:37:00 Test Item Value Reference Range Interpretation Comments MCH (test code = MCH) 23.8 pg 27.0-31.0 [facility] VrqydogHNOKBMXVCJ3785-35-97 10:37:0031.3[facility]annHEMATOLOGY 2020-08-29 10:37:0018.2[facility] JeaworqAGHPTIUDGL2182-55-04 10:37:13537Urelukdw QbwgibfOQVFWREYDQ2501-58-78 10:37:007.5[facility] NgonferEMCEHSWVUN9203-69-62 10:37:00 Test Item Value Reference Range Interpretation Comments PT (test code = PT) 12.8 s 12.0-14.7 [facility] NjnzvexVGCBWNQNGS0548-10-53 10:37:00 Test Item Value Reference Range Interpretation Comments INR (test code = INR) 0.97 1 0.85-1.17 [facility] QpaqgqrTFSZLMSUBG3580-32-09 10:37:00 Test Item Value Reference Range Interpretation Comments PTT (test code = PTT) 25.0 s 22.9-35.8 [facility] RfidxkmWSFMIBHWIS5748-42-72 10:37:0070.5[facility]annHEMATOLOGY 2020-08-29 10:37:0018.8[facility] AglkgsfGZKCWPXCGM2067-99-03 10:37:009.5[facility] ItbzpiaHJLRZPUCYL7086-04-68 10:37:000.9[facility] AapidlcLYDLNDMPTE1121-33-46 10:37:000.3[facility] PnnixeaJZMVZTXSDO1310-80-37 10:37:004.8[facility] TVSQTVCZQT3874-89-08 10:37:001.3[facility] AwbvtfkGNHPQVSZLK8859-89-99 10:37:000.6 [facility] RhikmsfQUSZQHXMKM5095-87-92 10:37:000.1[facility]annHEMATOLOGY 2020-08-29 10:37:001+ *ABN*(08/29/20 5:37 AM)[facility] EfjfmmaNDYOMAWJYP0784-55-63 10:37:00Not Detected (08/29/20 5:37 AM)[facility] Gastric Emptying 2020-08-27 23:14:39PROCEDURE: NM GASTRIC EMPTYING [...] complete emptying by 4 hours. [facility]-[id number] Interface, Radiology Results 08/27/2020 6:17 PM CDT [...] complete emptying by 4 hours. [facility]-[id number] Rock Medical Centerscpan american hospitalneous referral test 2020-05-09 21:24:58 Test Item Value Reference Range Interpretation Comments Misc test HIV-1 RNA QUAL PCR name (test code = 2566) Misc test see note Human Immunodef iciency result (test Virus 1 (HIV-1) by code = 1730) Qualitative Railroad Maintenance Clerk-M ediated Amplification ( TMA) [facility] test code 6458933 HIV-1 by Qualit ative TMA See Note SOURCE/SPECIMEN PLASMA HIV-1 RNA, QUAL ITATIVE TMA HIV-1 RNA, QL TMA T REGIONAL PRODUCTION MANAGER Test Not Performed. Initial testing necessi tated a repeat, but the re was insufficient sa mple to perform repeat. SAMPLE LEFT FOR REPEAT IS 50 uL. NEED 1000 u L TO RUN REPEAT. This te st was performed using the APTIMA(R) HIV-R NA Qualitative Ass ay (Gen-Probe). ======== ======== Te st performed by:ZEALER[address] [place] [address] KYLE (test HIVQL - HIV-1 RNA, code = KYLE) Qualitative TMA (FROZEN)[facility] Test Code: 1280604Odarad: plasma [facility] duplex venous upper iosyqasor1455-19-31 04:57:00 Vascular Ultrasound Laboratory Upper Extremity Venous Report [address] [place] [address] Pat.Name: LIO WATTS Pat.ID: [id number] .Date: 04/30/2020 Refer.MD: ELISEO ARCE MD Exam Time: 5:04:00 PM Study Type:UE Venous Age: 9 1955,65Y Sex: FEMALE Sonogrphr: IBIS Espinosa RCS Pat. Stat.:Inpatient Room: [place] [address] Tape Vol: , CPT - 4: 27476 Echo Event ID:[id number] Order ID: [id number] Reason for Study:Arm swelling or pain, DVT [...] veins.*Preliminary result reported to ASHLEY Santos @ 8500 on 04/30/20.PHYSICIAN INTERPRETATION Venous examination of the both upper extremities and neck demonstratedno evidence of deep venous thrombosis. Total superficial vein thrombosis of the right basilic vein. FINDINGS: Signed 04/30/2020 10:57 PMZsolt Marianna MD, RPVIInterface, Radiology Results In - 04/30/2020 10:58 PM CST Vascular Ultrasound Laboratory Upper Extremity Venous Report [address] [place] [address] Pat.Name: LIO WATTS Pat.ID: [id number] .Date: 04/30/2020 Refer.MD: ELISEO ARCE MD Exam Time: 5:04:00 PM Study Type:UE Venous Age: 9 1955,65Y Sex: FEMALE Sonogrphr: IBIS Espinosa, SANKET Pat. Stat.:Inpatient Room: [place] [address] 2020 Tape Vol: EDGAR, CPT - 4: 18389 Echo Event ID:[id number] Order ID: [id number] Reason for Study:Arm swelling or pain, DVT [...] veins.*Preliminary result reported to ASHLEY Santos @ 6863 on 04/30/20.PHYSICIAN INTERPRETATION Venous examination of the both upper extremities and neck demonstratedno evidence of deep venous thrombosis. Total superficial vein thrombosis of the right basilic vein. FINDINGS: ------Signed 04/30/2020 10:57 PMFrancis Cabral MD, [facility] Chest 2 Sl3263-54-54 22:21:01EXAMINATION: XR CHEST 2 VW CLINICAL HISTORY: [...] active disease of the chest.1D2RAD_PS01[facility] Awpezwj8892-48-40 17:14:34ANicole zhang RN 04/30/2020 11:25 AMMidline Unsuccessful [...] place a PIV g.20 in lower arm .[facility]wood[facility] Abdom[facility] 1 Vw Oxwstsoh0678-85-38 16:20:14EXAMINATION: XR ABDOMEN 1 VW PORTABLE CLINICAL HISTORY: Abdominal pain post op COMPARISON: No prior IMPRESSION:1.Residual barium within the colon throughout. No small bowel obstruction noted. [facility] [id number] Interface, Radiology Results - 04/30/2020 10:23 AM CST EXAMINATION: XR ABDOMEN 1 VW PORTABLECLINICAL HISTORY: Abdominalpain post opCOMPARISON: No priorIMPRESSION:1.Residual barium within the colon throughout. No smallbowel obstruction noted.[facility]-[id number] EsscvwukRctaby0501-33-44 20:57:57RaCarlee mulligan MD 04/28/2020 2:59 PMAirwayPerformed by: Carlee Malloy MDAuthorized by: Carlee Malloy MD Location: ORUrgency: ElectiveDifficult Airway: No Anesthesiologist: Kvng Malloy MDResident/INVENTORY CONTROL SUPERVISOR/AA: Allan Morocho DOPerformed by: resident/INVENTORY CONTROL SUPERVISOR/AAPreoxygenated gtbc825% O2: Yes C- spine Precautions Maintained Throughout: [...] No Number of Attempts at Approach: 1 [facility]woodTransthoracic Echocardiogram Complete, (w Contrast, Strain and 3D if needed)2020-04-28 00:20:00 Echocardiography Report [address] [address] Pat.Name: LIO WATTS Pat.ID: [id number] .Date: 04/27/2020 Refer.MD: ELISEO ARCE MD Exam Time: 2:21:00 PM Study Type:Routine Echo Height: 64in Weight: 213lb BSA: 2.01 m2 Age: 9 1955,65Y Sex: FEMALE BP: 128/89 HR: 102 bpm Sonogrphr: SANKET [facility]. Stat.:Inpatient Room: [facility] Study Status:Final Echo Event ID:[id number] Order ID: [id number] Reason for Study:Atrial FibrillationHistory / Clinical:Hypertension Procedures: [...] estimate PA systolic pressure. MEASUREMENTS: 2DParasternal Long [place] Ao An 2.2 cm LVPWd 1 cm [...] LVOT CI 3.1 l/m/m2 Signed 04/27/2020 06:20 PMMohamtyrell Martin MDInterface, Radiology Results In - 04/27/2020 6:21 PM CST Echocardiography Report [address] [place] [address] Pat.Name: LIO WATTS Pat.ID: [id number] .Date: 04/27/2020 Refer.MD: ELISEO ARCE MD Exam Time: 2:21:00 PM Study Type:Routine Echo Height: 64in Weight: 213lb BSA: 2.01 m2 Age: 9 1955,65Y Sex: FEMALE BP: 128/89 HR: 102 bpm Sonogrphr: SANKET [facility] Pat. Stat.:Inpatient Room: [facility] Study Status:Final Echo Event ID:[id number] Order ID: [id number] Reason for Study:Atrial FibrillationHistory / Clinical:Hypertension Procedures: [...] PA systolic pressure.- MEASUREMENTS: ---- 2DParasternal Long [place] Ao An 2.2 cm LVPWd 1 cm [...] LVOT CI 3.1 l/m/m2 Signed 04/27/2020 06:20 PMMohamtyrell Martin, [facility] Esophagram Double Drfpqqhc7099-15-32 18:07:12EXAMINATION: [place] ESOPHAGRAM DOUBLE CONTRAST CLINICAL HISTORY: [...] spontaneous gastroesophageal reflux. [id number]_[id number] Interface, Radiology Results [facility] - 04/25/2020 12:10 PM CST EXAMINATION: FL [...] hiatal hernia. There was mild spontaneous gastroesophageal reflux.[id number]_PS01[facility] Wo Contrast Abdomen Wo Contrast Pelvis Wo Crhbmqqw5457-77-80 15:23:55EXAMINATION: CT CHEST WO CONTRAST ABDOMEN WO [...] chronic and incidental findings as detailed above. [facility]-[id number] Dictated and approved by radiology resi dent/fellow: [...] aorta.4.Additional chronic and incidental findings as detailed above.[facility]-[id number] and approved by residential fee appraiser/fellow: Jenna Valenzuela M.D.I, Medhat Flowers Jr., M.D., personally reviewed the images and resident's/fellow's findings and agree with the final report. [facility], GC, TV,PCR, IN BYWUO2700-02-22 15:38:00 Test Item Value Reference Range Interpretation Comments FT (test code = CHTR) Not detected (qualifier Not Detected N value) FT (test code = Not detected (qualifier Not Detected N NGONO) value) FT (test code = TRVG) Not detected (qualifier Not Detected N value) URINALYSIS WITH IEMESUUINEI0879-82-78 10:57:00 Test Item Value Reference Range Interpretation Comments Color (test code = UCOLR) Dk. Yellow Clarity (test code = UCLAR) Hazy Glucose (test code = UGLUC) NEGATIVE NEGATIVE N Bilirubin (test code = UBILI) NEGATIVE NEGATIVE N Ketones (test code = UKET) NEGATIVE NEGATIVE N Specific [place] (test code = 1.025 1.005-1.030 A USPGR) [...]
[2021-05-30] MEDS ORDERED: METHYLPREDNISOLONE 125 MG INJ ONE (21:01)
[2021-05-30] MEDS ORDERED: FUROSEMIDE 40 MG/4 ML VIAL ONE (21:02)
--- NOTE | 2021-05-30 21:51 | RAD REPORT ---
EXAM DESCRIPTION: RAD - Chest Single View - 05/30/2021 9:16 pm CLINICAL HISTORY: SOB Chest pain. COMPARISON: Chest Single View dated 05/28/2021; Chest Single View dated 05/27/2021; Chest Single View da arpit 05/15/2021; Chest Single View dated 05/15/2021 FINDINGS: Portable technique limits examination quality. Mild interstitial pulmonary edema. The heart is moderately enlarged. Bilateral shoulder arthroplastie s. IMPRESSION: Mild CHF.
[2021-05-30 22:46] LABS: Absolute Lymphocytes (CBC) 1.2 K/uL (0.7-4.9); Hematocrit 34.9 % (36.0-45.0); Lymphocytes % 16.5 % (15.3-44.8); MPV 7.1 fL (7.6-11.3); RBC Red Blood Cell Count 4.37 M/uL (3.86-4.86)
[2021-05-30 22:50] LABS: Protime INR 1.2
[2021-05-30 23:02] LABS: Anisocytosis 1+; Blood Morphology Comment NOTED (NOT SEEN); Hypochromasia 1+; Macrocytosis 1+; Ovalocytes 1+; Platelet Estimate ADEQ; Stomatocytes 1+; White Blood Cell Scan OK (OK)
[2021-05-30 23:06] LABS: ALT/SGPT 22 U/L (12-78); AST/SGOT 18 U/L (15-37); Albumin 2.8 g/dL (3.4-5.0); Alkaline Phosphatase 81 U/L (45-117); BUN Blood Urea Nitrogen 23 mg/dL (7-18); Bicarbonate 30 mmol/L (21-32); Bilirubin Direct 0.2 mg/dL (0-0.2); Bilirubin Total 0.4 mg/dL (0.2-1.0); Glucose Level 181 mg/dL (74-106); Magnesium 2.3 mg/dL (1.8-2.4); NT PRO-BNP 1865 pg/mL (<125); Potassium 3.3 mmol/L (3.5-5.1); Protein, Total 7.2 g/dL (6.4-8.2); Sodium Level 140 mmol/L (136-145); Troponin (Emerg Dept Use Only) < 0.02 ng/mL (0.0-0.045)
[2021-05-30] MEDS ORDERED: ONDANSETRON 4 MG/2 ML VIAL ONE (23:15)
[2021-05-30] MEDS ORDERED: MORPHINE 4 MG/ML SYR ONE (23:15)
--- NOTE | 2021-05-31 00:04 | EDPHYS ---
Physician Documentation [facility] Name: Marjan Fleming Age: 66 yrs Sex: Female : 1955 Arrival Date: 05/30/2021 Time: 18:55 Bed 14 Private MD: ED Physician Joey Jung HPI: 05/30 20:16 This 66 yrs old Female presents to ER via Wheelchair with complaints of Shortness Of pm1 Breath, Ear Pain, Dizziness. 20:16 The patient has shortness of breath at rest. Onset: The symptoms/episode began/occurred pm1 3 day(s) ago. Duration: The symptoms are continuous. The patient's shortness of breath is aggravated by exertion, is alleviated by nothing. Associated signs and symptoms: Pertinent negatives: chest pain, fever, nausea, vomiting. Severity of symptoms: in the emergency department the symptoms are unchanged. The patient has been recently been admitted at [facility], was discharged yesterday, for similar complaints, patient did not fill her prescriptions from discharge. Patient has not taken Lasix that she was prescribed. Patient is reporting pain to the posterior aspect of bilateral pinna. Possibly from using masks. Historical: - Allergies: 19:50 Bactrim DS; bb 19:50 butorphanol tartrate; bb 19:50 Fentanyl; bb 19:50 Reglan; bb 19:50 Stadol; bb 19:50 sulfamethoxazole (bulk); bb 19:50 TRIMETHOPRIM; bb - PMHx: 19:50 Anxiety; Atrial Fib; Bipolar disorder; Chronic pain; COPD; esophageal varices; bb Hepatitis; HIV; Hypertension; Migraines; Panic Attacks; - PSHx: 19:50 Appendectomy; Bilateral shoulder repair; Cholecystectomy; hernia repair; R wrist SX; bb - Immunization history:: Pfizer x 3. - Social history:: Smoking status: Patient/guardian denies using tobacco, the patient reports quitting approximately 2 years ago. ROS: 20:16 Constitutional: Negative for fever, chills, and weight loss. pm1 20:16 Cardiovascular: Negative for chest pain, palpitations, and edema. 20:16 Abdomen/GI: Negative for abdominal pain, nausea, vomiting, diarrhea, and constipation, Back: Negative for injury and pain, MS/Extremity: Negative for injury and deformity, Skin: Negative for injury, rash, and discoloration, Neuro: Negative for headache, weakness, numbness, tingling, and seizure. 20:16 ENT: Positive for ear pain, Negative for sore throat. 20:16 Respiratory: Positive for shortness of breath, Negative for cough. 20:16 All other systems are negative. Exam: 20:16 Constitutional: This is a well developed, well nourished patient who is awake, alert, pm1 and in no acute distress. Head/Face: Normocephalic, atraumatic. 20:16 Eyes: Exam is negative for acute changes, Extraocular movements: intact throughout, Conjunctiva: no acute changes, no injection. 20:16 ENT: Exam is negative for acute changes, Mouth: Lips: normal, moist, Oral mucosa: normal, pink and intact, moist. 20:16 Cardiovascular: Rate: normal, Rhythm: regular, Pulses: no pulse deficits are appreciated. Vital Signs: 19:46 BP 154 / 105; Pulse 72; Resp 24 S; Temp 97.2(TE); Pulse Ox 92% on R/A; Weight 97.52 kg bb (R); Height 5 ft. 4 in. (162.56 cm) (R); Pain 10/10; 20:00 BP 173 / 92; Pulse 66; Resp 22; Pulse Ox 96% 2 lpm ; Pain 0/10; sv1 21:00 BP 161 / 103; Pulse 67; Resp 20; Pulse Ox 96% 2 lpm ; sv1 05/31 00:31 BP 170 / 100; Pulse 64; Resp 19; Temp 98.6; Pulse Ox 98% 0 lpm ; Pain 0/10; sv1 05/30 19:46 Body Mass Index 36.90 (97.52 kg, 162.56 cm) MDM: 05/30 20:12 Patient medically screened. pm1 23:47 Data reviewed: vital signs. Counseling: I had a detailed discussion with the patient pm1 and/or guardian regarding: the historical points, exam findings, and any diagnostic results supporting the discharge/admit diagnosis, lab results, radiology results, the need for outpatient follow up, a family practitioner, to return to the emergency department if symptoms worsen or persist or if there are any questions or concerns that arise at home. 05/30 20:13 Order name: Basic Metabolic Panel; Complete Time: 23:14 pm1 05/30 20:13 Order name: CBC with Diff; Complete Time: 23:14 pm1 05/30 20:13 Order name: LFT's; Complete Time: 23:14 pm1 05/30 20:13 Order name: Magnesium; Complete Time: 23:14 pm1 05/30 20:13 Order name: NT PRO-BNP; Complete Time: 23:14 pm1 05/30 20:13 Order name: PT-INR; Complete Time: 22:54 pm1 05/30 20:13 Order name: Troponin (emerg Dept Use Only); Complete Time: 23:14 pm1 05/30 20:13 Order name: XRAY Chest (1 view); Complete Time: 22:05 pm1 05/30 20:13 Order name: EKG; Complete Time: 20:13 pm1 05/30 22:48 Order name: CBC Smear Scan; Complete Time: 23:14 EDMS 05/30 20:13 Order name: Cardiac monitoring; Complete Time: 20:57 pm1 05/30 20:13 Order name: EKG - Nurse/Tech; Complete Time: 23:11 pm1 05/30 20:13 Order name: IV Saline Lock; Complete Time: 23:11 pm1 05/30 20:13 Order name: Labs collected and sent; Complete Time: 23:11 pm1 05/30 20:13 Order name: O2 Per Protocol; Complete Time: 23:11 pm1 05/30 20:13 Order name: O2 Sat Monitoring; Complete Time: 23:11 pm1 Administered Medications: 22:44 Drug: Lasix (furosemide) 40 mg Route: IVP; Site: right antecubital; sv05/31 00:29 Follow up: Response: No adverse reaction 05/30 22:44 Drug: SOLU-Medrol (methylPrednisoLONE) 125 mg Route: IVP; Site: right antecubital; sv05/31 00:28 Follow up: Response: No adverse reaction 05/30 23:19 Drug: morphine 4 mg Route: IVP; Site: right antecubital; sv05/31 00:28 Follow up: Response: No adverse reaction 05/30 23:19 Drug: Zofran (Ondansetron) 4 mg Route: IVP; Site: right antecubital; sv05/31 00:27 Follow up: Response: No adverse reaction; Nausea is decreased sv1 Disposition: 01:33 Co-signature as Attending Physician, Joey Jung MD I agree with the assessment and kdr plan of care. Disposition Summary: 05/31/21 00:02 Discharge Ordered Location: Home pm1 Problem: new pm1 Symptoms: have improved pm1 Condition: Stable pm1 Diagnosis - Congestive heart failure pm1 Followup: pm1 - With: Emergency Department - When: As needed - Reason: Worsening of condition Followup: pm1 - With: Private Physician - When: 2 - 3 days - Reason: Recheck today's complaints, Continuance of care, Re-evaluation by your physician Discharge Instructions: - Discharge Summary Sheet pm1 - Heart Failure, Diagnosis pm1 - Heart Failure, Self Care pm1 - Living With Heart Failure pm1 - Heart Failure Exacerbation pm1 Forms: - Medication Reconciliation Form pm1 - Thank You Letter pm1 - Antibiotic Education pm1 - Prescription Opioid Use pm1 Prescriptions: - Lasix 40 mg Oral Tablet - take 1 tablet by ORAL route once daily for 30 days; 30 tablet; Refills: 0, pm1 Product Selection Permitted Signatures: Dispatcher [employer] EDMS Joey Jung MD MD kdr Dee Kennedy RN RN bb Austin Raza NP [facility] C[facility] SPECIALIST pm1 Samson Cho RN RN sv1
--- NOTE | 2021-05-31 00:04 | ER ---
Nurse's Notes [facility] Name: Marjan Fleming Age: 66 yrs Sex: Female : 1955 Arrival Date: 05/30/2021 Time: 18:55 Bed 14 Private MD: Diagnosis: Congestive heart failure Presentation: 05/30 19:46 Chief complaint: Patient states: she is still having shortness of breath was seen here bb yesterday for similar symptoms but now she is having shooting pain behind her ears into her head making her "eyes go all over" and she is dizzy. Coronavirus screen: difficulty breathing, shortness of breath, Client presents with at least one sign or symptom that may indicate coronavirus-19. Standard/surgical mask placed on the client. Ebola Screen: No symptoms or risks identified at this time. Initial Sepsis Screen: Does the patient meet any 2 criteria? RR > 20 per min. No. Patient's initial sepsis screen is negative. Does the patient have a suspected source of infection? No. Patient's initial sepsis screen is negative. Risk Assessment: Do you want to hurt yourself or someone else?. Onset of symptoms was May 30, 2021. 19:46 Method Of Arrival: Wheelchair bb 19:46 Acuity: BLAYNE 3 bb 19:55 Note pt found out today that sister has stage IV cancer. bb Triage Assessment: 19:50 General: Appears uncomfortable, Behavior is calm, cooperative. Pain: Complains of pain bb in head Pain currently is 10 out of 10 on a pain scale. Neuro: Level of Consciousness is awake, alert, obeys commands, Oriented to person, place, time, situation. Cardiovascular: Capillary refill < 3 seconds Patient's skin is warm and dry. Respiratory: Reports shortness of breath Onset: The symptoms/episode began/occurred at an unknown time. the patient has mild shortness of breath. GI: Abdomen is round. Derm: Skin is pink, warm \\T\\ dry. Musculoskeletal: Circulation, motion, and sensation intact. 19:50 Respiratory: Respiratory pattern is tachypnea. bb Historical: - Allergies: 19:50 Bactrim DS; bb 19:50 butorphanol tartrate; bb 19:50 Fentanyl; bb 19:50 Reglan; bb 19:50 Stadol; bb 19:50 sulfamethoxazole (bulk); bb 19:50 TRIMETHOPRIM; bb - PMHx: 19:50 Anxiety; Atrial Fib; Bipolar disorder; Chronic pain; COPD; esophageal varices; bb Hepatitis; HIV; Hypertension; Migraines; Panic Attacks; - PSHx: 19:50 Appendectomy; Bilateral shoulder repair; Cholecystectomy; hernia repair; R wrist SX; bb - Immunization history:: Pfizer x 3. - Social history:: Smoking status: Patient/guardian denies using tobacco, the patient reports quitting approximately 2 years ago. Screenin:00 Abuse screen: Denies threats or abuse. Nutritional screening: No deficits noted. sv1 Tuberculosis screening: No symptoms or risk factors identified. Fall Risk None identified. IV access (20 points). Assessment: 05/31 00:37 Cardiovascular: Rhythm is regular. Respiratory: Airway is patent. Respiratory: Breath sv1 sounds are diminished bilaterally. Breath sounds with wheezes bilaterally. 00:38 Respiratory: Respiratory effort is even. sv1 Vital Signs: 05/30 19:46 BP 154 / 105; Pulse 72; Resp 24 S; Temp 97.2(TE); Pulse Ox 92% on R/A; Weight 97.52 kg bb (R); Height 5 ft. 4 in. (162.56 cm) (R); Pain 10/10; 20:00 BP 173 / 92; Pulse 66; Resp 22; Pulse Ox 96% 2 lpm ; Pain 0/10; sv1 21:00 BP 161 / 103; Pulse 67; Resp 20; Pulse Ox 96% 2 lpm ; sv1 05/31 00:31 BP 170 / 100; Pulse 64; Resp 19; Temp 98.6; Pulse Ox 98% 0 lpm ; Pain 0/10; sv1 05/30 19:46 Body Mass Index 36.90 (97.52 kg, 162.56 cm) bb ED Course: 05/30 18:55 Patient arrived in ED. as 19:50 Triage completed. bb 19:50 Arm band placed on Patient placed in waiting room, Patient notified of wait time. bb 20:02 Austin Raza NP is PHCP. pm1 20:02 Joey Jung MD is Attending Physician. pm1 20:55 Samson Cho RN is Primary Nurse. sv1 21:00 Patient has correct armband on for positive identification. Placed in gown. Bed in low sv1 position. Call light in reach. Side rails up X2. 21:00 No provider procedures requiring assistance completed. IV discontinued. sv1 21:17 XRAY Chest (1 view) In Process Unspecified. EDMS 22:30 Initial lab(s) drawn, by me, sent to lab. Inserted saline lock: 18 gauge in right bb antecubital area, using aseptic technique. Blood collected. Administered Medications: 22:44 Drug: Lasix (furosemide) 40 mg Route: IVP; Site: right antecubital; sv1 05/31 00:29 Follow up: Response: No adverse reaction sv1 05/30 22:44 Drug: SOLU-Medrol (methylPrednisoLONE) 125 mg Route: IVP; Site: right antecubital; sv1 05/31 00:28 Follow up: Response: No adverse reaction sv1 05/30 23:19 Drug: morphine 4 mg Route: IVP; Site: right antecubital; sv1 05/31 00:28 Follow up: Response: No adverse reaction sv1 05/30 23:19 Drug: Zofran (Ondansetron) 4 mg Route: IVP; Site: right antecubital; sv1 05/31 00:27 Follow up: Response: No adverse reaction; Nausea is decreased sv1 Outcome: 05/30 21:00 Discharged to home sv1 Condition: good Discharge instructions given to patient. 05/31 00:02 Discharge ordered by . pm1 00:39 Patient left the ED. sv1 Signatures: Dispatcher [employer] EDCO Radha Simons Brenda, ASHLEY RN Austin Mccullough NP [employer] pm1 Samson Cho RN RN sv1
[2021-05-31 01:34] VITALS: BP 170/100; TEMP 98.6; O2SAT 98
== END 2021-05-31 00:39 | disposition home or self-care (01) ==
LOC: ER 18:53
DX: I50.9 Heart failure, unspecified (principal); I10 Essential (primary) hypertension; Z21 Asymptomatic human immunodeficiency virus [HIV] infection status; Z88.1 Allergy status to other antibiotic agents; Z88.2 Allergy status to sulfonamides; Z88.5 Allergy status to narcotic agent; Z88.8 Allergy status to other drugs, medicaments and biological substances
CPT/HCPCS: 93005; 85025; 80048; 36415; 83735; 85610; 80076; 84484; 83880; 71045; 96375; 96374; 99284; J1940; J2930; J2405

== ENCOUNTER 2021-06-06 09:34 | Emergency (ER) | payer OTHER ==
--- OUTSIDE RECORDS SUMMARY | 2021-06-06 09:46 | XMS REPORT | Continuity of Care Document ---
:1955 Author Organization [facility] t Address [address] [place] [address] Care Team Providers Name Role Phone Francisco Rahman Primary Care Physician Ashely Attending Clinician Unavailable HEMATPOUR Attending Clinician Unavailable RONALD Attending Clinician Unavailable Ronald DHILLON Attending Clinician Prabhu SANCHEZ Attending Clinician Unavailable Luisana Maharaj NP Attending Clinician Yazmin JENKNIS Attending Clinician [facility] Attending Clinician Unavailable Marika Bal Attending [...] Number Effective Date Expiration Date S [facility] [id number] 2012 ST[employer] PL[employer] OON 00:00:00 [facility] [id number] 2020 COMP HMO D SNP 00:00:00 [place]ID [place] [id number] 2020 00:00:00 Problems Condition Condition Condition Status Onset Resolution Last Treating Co mments Source Name Details Category Date Date Treatment Clinician Date Gastropare Gastropare Disease Active Overview : Methodi sis sis 4-[address] 00:00: [facility] 00 note l might be different from the original. Added automatic ally from request for surgery [id number] Dysphagia Dysphagia Disease Active Overview: Methodi 4-[address] 00:00: [facility] 00 note l might be different from the original. Added automatic ally from request for surgery [id number] CCL / EPS Diagnosis Active 2020-10-15 Memoria PVI 3-30 17:07:00 l ABLATION CCL / 00:00: Marty W/ CARTO / EPS PVI 00 GA / T ABLATION W/ CARTO / GA / T Active 08/19/2020 [facility] Food Food Disease Active 2019-05 Methodi intoleranc [...] 11-18 it y of ciency ciency 00:00: [place] virus virus 00 Medical (HIV) (HIV) Branch [...] matt NOL INGREDI 11-25 ity of 00:00: [place] [facility] Butorpha Drug Active Unknown - Unive rs nol Allergy See comments 11-25 ity of 00:00: Medical Branch Sulfamet Propensi Active [facility] hoxazole ty to 10-30 Health -Trimeth adverse 00:00: oprim reaction 00 [...] to drug FENTANYL DRUG Active High Hives Univers INGREDI 2-08 ity of 00:00: [place] [facility] TRIMETHO DRUG Active Hives [facility] PRIM INGREDI 2-08 ity of 00:00: [place] [facility] Fentanyl [...] Date Stop Date Source Natural father Diabetes [facility] Natural father Other - see comments [facility] Natural father Coronary Heart Univer [facility] Disease [facility] Natural father Hypertension [facility] Natural father [facility] Natural mother Cancer [facility] Social History Social Habit Start Date Stop Date Quantity Comments [facility] Alcohol Comment History [facility] Alcohol Std Drinks History [facility] Alcohol Binge Exposure to Not sure [facility] SARS-CoV-2 (event) History of tobacco Smoker [facility] Alcohol intake 2021-02-23 2021-02-23 Ex-drinker [facility] 00:00:00 00:00:00 (finding) Cigarettes smoked 2020-12-08 2020-12-[address] current (pack per 00:00:00 00:00:00 Hospita l day) - Reported Cigarette 2020-12-08 2020-12-08 [facility] pack-years 00:00:00 00:00:00 Hospital Tobacco use and 2020-10-31 2020-10-31 Smokeless tobacco [facility] exposure 00:00:00 00:00:00 non-user History SDOH 2020-10-31 2020-10-31 1 [facility] Alcohol Frequency 00:00:00 00:00:00 Tobacco Comment 2015-02-14 2015-02-14 Smokes approx 1-2 Un iversity of 00:00:00 00:00:00 cigarettes per [place] [facility] day when she Branch smokes Sex Ass[birth year] At [birth year] [facility] 00:00:00 00:00:00 Smoking Status Start Date Stop Date Source Ex-smoker 2020-10-31 00:00:00 2020-10-31 00:00:00 [facility] Unknown if ever smoked [facility] Medications Ordered Filled Start Stop Current Ordering Indication Dosage Frequency Signature Comments Components Source Medication Medication Date Date Medication? Clinician (SIG) Name Name raltegravir Yes [id number] 400mg Take 1 Univers (ISENTRESS) 1-12 tablet by ity of 400 mg 00:00: mouth 2 [place] tablet 00 (two) Medical times Branch daily. LORazepam 1 2021- Yes [id number] 1mg Take 1 Univers mg tablet 05-25 tablet by ity of 00:00: 05:59 mouth 3 [place] 00 :00 (three) Medical times Branch daily as needed (anxiety) for up to 21 days. LORazepam 1 2021- Yes [id number] 1mg Take 1 Univers mg tablet 05-2525 tablet by ity of 00:00: 05:59 mouth 3 [place] 00 :00 (three) Medical times Branch daily as needed (anxiety) for up to 21 days. SERTraline 2020-05 Yes [id number] 200mg Take 2 Univers 100 mg 2-21 tablets by ity of tablet 00:00: mouth [place] 00 daily. Medical Branch busPIRone 2020-05 Yes [id number] 30mg Take 1 Un matt 30 mg 2-21 tablet by ity of tablet 00:00: mouth 2 [place] 00 (two) Medical times Branch daily. buPROPion 2020-05 Yes [id number] 150mg Take 1 U nivers XL 2-21 tablet by ity of (WELLBUTRIN 00:00: mouth [place] XL) 150 mg 00 daily. Medical 24 hr Branch tablet SERTraline 2020-05 Yes [id number] 200mg Take 2 Univers 100 mg 2-21 tablets by ity of tablet 00:00: mouth [place] 00 daily. Medical Branch busPIRone 2020-05 Yes [id number] 30mg Take 1 Un matt 30 mg 2-21 tablet by ity of tablet 00:00: mouth 2 [place] 00 (two) Medical times Branch daily. buPROPion 2020-05 Yes [id number] 150mg Take 1 U nivers XL 2-21 tablet by ity of (WELLBUTRIN 00:00: mouth [place] XL) 150 mg 00 daily. Medical 24 hr Branch tablet LORazepam 2 2020-05- No [id number] 2mg Take 1 Univers mg tablet 06-28 tablet by ity of 00:00: 00:00 mouth 2 [place] 00 :00 (two) Medical times Branch daily as needed (anxiety). raltegravir Yes [id number] 400mg Take 1 Univers (ISENTRESS) 9- tablet by ity of 400 mg 00:00: mouth 2 [place] tablet 00 (two) Medical times Branch daily. raltegravir 2021- No [id number] 400mg Take 1 Univers (ISENTRESS) 02-13- tablet by it y of 400 mg 00:00: 00:00 mouth 2 [place] tablet 00 :00 (two) Medical times Branch daily. buPROPion 2020- No [id number] 150mg Take 1 Univers XL 01-28 12- tablet by ity of (WELLBUTRIN 00:00: 00:[place] XL) 150 mg 00 :00 daily. Medical 24 hr Branch tablet SERTraline 2020- No [id number] 200mg Take 2 Univers 100 mg 01-28- tablets by ity of tablet 00:00: 00:00 mouth [place] 00 :00 daily. Medical Branch busPIRone 2020- No [id number] 30mg Take 1 U nivers 30 mg -21 05- tablet by ity of tablet 00:00: 00:00 mouth 2 [place] 00 :00 (two) Medical times Branch daily. metoprolol 2021- No [id number] Take 1 UT tartrate 12-15 tablet Health (Lopressor) 00:00: 05:59 (100 mg 100 MG 00 :00 total) by tablet mouth 2 (two) times a day AND 0.5 tablets (50 mg total) every night. metoprolol 2021- No [id number] Take 1 [facility] tartrate 7-26 01-23 tablet [...] area in groin) hydrALAZINE 0 Yes 50mg Q.[id number] Take 50 mg Methodi (APRESOLINE 7-[id number] mouth [address] ) 50 MG [...] Hospita tablet 25 daily. l nystatin-tr Yes [id number] Apply to [facility] [place] [facility] iamcinolone 11-25 area(s) 3 ity of cream 00:00: (three) [place] 00 times Medical daily. Branch emtricitabi Yes [id number] Take one Univers ne-tenofovi 11-25 po daily ity of r alafen 00:00: [place] (DESCOVY) 00 Medical tablet Branch nystatin-tr Yes [id number] Apply to [facility] [place] [facility] iainolone 11-25 area(s) 3 ity of cream 00:00: (three) [place] 00 times Medical daily. Branch emtricitabi Yes [id number] Take one [facility] [place] [facility] raman 7-06 po daily ity of r alafen 00:00: [place] (DESCOVY) 00 Medical tablet Branch budesonide- 2020- No 1{puff} QD Inhale 1 Methodi formoteroL 11-14 06-[address] (SYMBICORT) 19:37: 00:00 morning. H ospita 160-4.5 02 :00 l mcg/actuati on inhaler hydrALAZINE Yes [id number] 50mg Q.[id number] Take 1 UT (Apresoline 10-31 [id number] tablet (50 Health ) 50 MG 00:00: 3D mg total) tablet 00 by mouth 3 (three) times a day. hydrALAZINE 2020- No [id number] 50mg Q.[id number] Take 1 UT (Apresoline 10-31 [id number] tablet (50 Health ) 50 MG 00:00: 04:59 3D mg total) tablet 00 :00 by mouth 3 (three) times a day. hydrALAZINE 2020- No [id number] 50mg Q.[id number] Take 1 UT (Apresoline 10-31 [id number] tablet (50 Health ) 50 MG 00:00: 04:59 3D mg total) tablet 00 :00 by mouth 3 (three) times a day. hydrALAZINE 2020- No [id number] 50mg Q.[id number] Take 1 UT (Apresoline 10-31 [id number] tablet (50 Health ) 50 MG 00:00: 04:59 3D mg total) tablet 00 :00 by mouth 3 (three) times a day. hydrALAZINE 2020- No [id number] 50mg Q.[id number] Take 1 UT (Apresoline 10-31 [id number] tablet (50 Health ) 50 MG 00:00: 04:59 3D mg total) tablet 00 :00 by mouth 3 (three) times a day. Breztri Yes [facility] Aerosphere 6 Health 160-9-4.8 00:00: [...] Health 100 MG 00:00: tablet 00 lisinopril Yes UT 40 MG 5-30 Health tablet [...] 00:00: ointment 00 mupirocin Yes UT (Bactroban) 528 Health 2 % 00:00: ointment 00 mupirocin Yes UT (Bactroban) 10-17 Health 2 % 00:00: ointment 00 mupirocin 2020-0 Yes UT (Bactroban) 528 Health 2 % 00:00: ointment 00 mupirocin 2020-0 Yes UT (Bactroban) 10-17 Health 2 % 00:00: ointment 00 nystatin 2020- No [id number] Q.25D Take 5 mL Methodi (MYCOSTATIN 10-06 [...] 40mg Q.5D Take 2 Met hodi e -16 05-[address] (Protonix) 00:00: 04:59 (40 [...] ia 4-10 (Same as: l 14:00: Norvasc) Lynn 00 emtricitabi No Notes: Caesar lisa ne 200 MG / 4-10 (Same as: l tenofovir 14:00: Descovy) Herm ariel alafenamide 00 Non-formul 25 MG Oral nancy Tablet [Descovy] pantoprazol No Notes: Caesar lisa e 4-10 Tablet l 14:00: should not Lynn 00 be chewed or crushed. (Same as: Protonix) Amiodarone No Notes: Memor ia 4-10 (Same as: l 14:00: Cordarone) Lynn 00 Amlodipine No Notes: Memor ia 4-10 [...] e 4-10 Tablet l 14:00: should not Lynn 00 be chewed or crushed. (Same as: Protonix) Amiodarone No Notes: Memor ia 4-10 (Same as: l 14:00: Cordarone) Marty 00 Amlodipine No Notes: Memor ia 4-10 (Same as: l 14:00: Norvasc) Lynn 00 emtricitabi No Notes: Caesar lisa ne 200 MG / 4-10 (Same as: l tenofovir 14:00: Descovy) Herm ariel alafenamide 00 Non-formul 25 MG Oral nancy Tablet [Descovy] Sertraline No Notes: Memor ia 4-10 (Same as: l 14:00: Zoloft) Marty 00 pantoprazol No Notes: Caesar lisa e 4-10 Tablet l 14:00: should not Lynn 00 be chewed or crushed. (Same as: [...] e 4-10 Tablet l 14:00: should not Lynn 00 be chewed or crushed. (Same as: [...] ia 4-10 (Same as: l 14:00: Zoloft) Lynn 00 pantoprazol No Notes: Caesar lisa e 4-10 Tablet l 14:00: should not Marty 00 be chewed or crushed. (Same as: Protonix) Amiodarone No Notes: Memor ia 4-10 (Same as: l 14:00: Cordarone) Marty 00 Amlodipine No Notes: Memor ia 4-10 (Same as: l 14:00: Norvasc) Lynn 00 emtricitabi No Notes: Caesar lisa ne [...] 0.9% 4-10 (Same as: l 02:00: BD Lynn 00 Posiflush) Eliquis No Notes: Memoria 4-10 Same as: l 02:00: Eliquis Hydralazine No Notes: Caesar lisa Hydrochlori 4-10 (Same as: l de 50 MG 02:00: Apresoline Her mitchell Oral Tablet ) May interfere w/enteral feedings Take With Food Sucralfate No Notes: May M emoria 4-10 interfere l 02:00: w/enteral Lynn 00 feeds - Take 1 hr before or 2 hr after antacids, dairy pdt, meals & minerals - On empty stomach. For patients unable to swallow tablet, dissolve in 10mL - 30mL of water or juice and stir before giving. (Same As: Carafate) Saline No Notes: Memoria Flush 0.9% 4-10 (Same as: l 02:00: BD Lynn 00 Posiflush) Eliquis No Notes: Memoria 4-10 [...] M emoria 4-10 interfere l 02:00: w/enteral Lynn 00 feeds - Take 1 hr before [...] not exceed l #3 00:12: 4gm/day of Lynn acetaminop hen. (Same as: Tylenol with Codeine # 3) acetaminoph No Notes: Do M emoria en-codeine 4-10 not exceed l #3 00:12: 4gm/day of Marty acetaminop hen. (Same as: Tylenol with Codeine # 3) acetaminoph No Notes: Do M emoria en-codeine 4-10 not exceed l #3 00:12: 4gm/day of Lynn acetaminop hen. (Same as: Tylenol with Codeine [...] tab, l Tablet 22:00: Route: PO, Skylar [ISENTRE] Drug form: TAB, BID, Dosing Weight 97.273, kg, Start date: 08/29/20 17:00:00 CDT, Duration: 30 day, Stop date: 09/28/20 9:00:00 CDT, 0 Buspirone 0 No Notes: Memori a 08-29 (Same As: l 22:00: BuSpar) Lisinopril No 40 mg, 1 Mem oria -09 tab, l 22:00: Route: PO, Lynn 00 Drug form: TAB, BID, Dosing Weight [...] oria 4- tab, l 22:00: Route: PO, Lynn 00 Drug form: TAB, BID, Dosing Weight [...] oria 4-09 tab, l 22:00: Route: PO, Lynn 00 Drug form: TAB, BID, Dosing Weight [...] tartrate 4-09 tab, l 22:00: Route: PO, Lynn 00 Drug form: TAB, BID, Dosing Weight 97.273, kg, Start date: 08/29/20 17:00:00 CDT, Duration: 30 day, Stop date: 09/28/20 9:00:00 CDT Raltegravir 1-0 No 400 mg, 1 M emoria 400 MG Oral 4-09 tab, l Tablet 22:00: Route: PO, Skylra nn [ISENTRESS] Drug form: TAB, BID, Dosing [...] tartrate 4-09 tab, l 22:00: Route: PO, Lynn 00 Drug form: TAB, BID, Dosing Weight [...] oria 4-09 tab, l 22:00: Route: PO, Lynn 00 Drug form: TAB, BID, Dosing Weight 97.273, kg, Start date: 08/29/20 17:00:00 CDT, Duration: 30 day, Stop date: 09/28/20 9:00:00 CDT metoprolol No 100 mg, 1 Me moria tartrate 4-09 tab, l 22:00: Route: PO, Lynn 00 Drug form: TAB, BID, Dosing Weight [...] Notes: Memoria 4-09 (Same l 17:07: as:MORPhin Lynn 00 e Sulfate) Morphine No Notes: Memoria 4-09 (Same l 17:07: as:MORPhin [place] 00 e Sulfate) Morphine No Notes: Memoria 4-09 (Same l 17:07: as:MORPhin Marty 00 e Sulfate) Morphine No Notes: Memoria 4-09 (Same l 17:07: as:MORPhin [place] 00 e Sulfate) Morphine No Notes: Memoria 4-09 (Same l 17:07: as:MORPhin Marty 00 e Sulfate) Morphine No Notes: Memoria 4-09 (Same l 17:07: as:MORPhin Marty 00 e Sulfate) Morphine No Notes: Memoria 4-09 (Same l 17:07: as:MORPhin [place] 00 e Sulfate) buPROPion No 150 mg, [...] ONCE, Stop date: 08/29/20 10:40:00 CDT pantoprazol 2021-0 Yes 40 mg = 1 M emoria e 40 mg 4-09 tab, PO, l oral 15:27: Daily, # Lynn enteric 00 30 tab, 0 coated Refill(s), [facility], 162.56, cm, 08/29/20 5:30:00 CDT, Height, 97.273, kg, 08/29/20 5:30:00 CDT, Weight pantoprazol 1-0 Yes 40 mg = 1 M emoria e 40 mg 4-09 tab, PO, l oral 15:27: Daily, # Marty enteric 00 30 tab, 0 coated Refill(s), tablet Pharmacy: [facility] 149, 162.56, cm, 08/29/20 5:30:00 CDT, Height, 97.273, kg, 08/29/20 5:30:00 CDT, Weight pantoprazol 1-0 Yes 40 mg = 1 M emoria e 40 mg 4-09 tab, PO, l oral 15:27: Daily, # Lynn enteric 00 30 tab, 0 coated Refill(s), [facility], 162.56, cm, 08/29/20 5:30:00 CDT, Height, 97.273, kg, 08/29/20 5:30:00 CDT, Weight pantoprazol 1-0 Yes 40 mg = 1 M emoria e 40 mg 4-09 tab, PO, l oral 15:27: Daily, # Marty enteric 00 30 tab, 0 coated Refill(s), tablet [facility], 162.56, cm, 08/29/20 5:30:00 CDT, Height, 97.273, kg, 08/29/20 5:30:00 CDT, Weight pantoprazol 1-0 Yes 40 mg = 1 M emoria e 40 mg 4-09 tab, PO, l oral 15:27: Daily, # Marty enteric 00 30 tab, 0 coated Refill(s), tablet [facility], 162.56, cm, 08/29/20 5:30:00 CDT, Height, 97.273, kg, 08/29/20 5:30:00 CDT, Weight pantoprazol 2021-0 Yes 40 mg = 1 M emoria e 40 mg 4-09 tab, PO, l oral 15:27: Daily, # Marty enteric 00 30 tab, 0 coated Refill(s), tablet Pharmacy: [facility] 149, 162.56, cm, 08/29/20 5:30:00 CDT, Height, 97.273, kg, 08/29/20 5:30:00 CDT, Weight pantoprazol 2020-0 Yes 40 mg = 1 M emoria e 40 mg 4-09 tab, PO, l oral 15:27: Daily, # Lynn enteric 00 30 tab, 0 coated Refill(s), tablet Pharmacy: [place] [address], 162.56, cm, 08/29/20 5:30:00 CDT, Height, 97.273, kg, 08/29/20 5:30:00 CDT, Weight pantoprazol 2020-0 No 40 mg = 1 M emoria e 40 mg 4-09 tab, PO, l oral 15:26: Daily, # Lynn enteric 00 30 tab, 0 coated Refill(s) tablet sucralfate 2020-0 Yes 1 gm = 1 Mem oria 1 g oral 4-09 tab, PO, l tablet 15:26: Q12H, # 28 Skylar nn 00 tab, 0 Refill(s), Pharmacy: [place] [address], 162.56, cm, 08/29/20 5:30:00 CDT, Height, 97.273, [...] Skylar nn 00 tab, 0 Refill(s), Pharmacy: [facility] 149, 162.56, cm, 08/29/20 5:30:00 [...] Skylar nn 00 tab, 0 Refill(s), Pharmacy: [facility] 149, 162.56, cm, 08/29/20 5:30:00 [...] Skylar nn 00 tab, 0 Refill(s), Pharmacy: [facility] 149, 162.56, cm, 08/29/20 5:30:00 [...] Skylar nn 00 tab, 0 Refill(s), Pharmacy: [facility] 149, 162.56, cm, 08/29/20 5:30:00 CDT, Height, 97.273, kg, 08/29/20 5:30:00 CDT, Weight pantoprazol 2020-0 No 40 mg = 1 M emoria e 40 mg 4-09 tab, PO, l oral 15:26: Daily, # Lynn enteric 00 30 tab, 0 coated Refill(s) tablet sucralfate 2021-0 Yes 1 gm = 1 Mem oria 1 g oral 4-09 tab, PO, l tablet 15:26: Q12H, # 28 Skylar nn 00 tab, 0 Refill(s), Pharmacy: [facility] 149, 162.56, cm, 08/29/20 5:30:00 [...] Skylar nn 00 tab, 0 Refill(s), Pharmacy: [facility] 149, 162.56, cm, 08/29/20 5:30:00 CDT, Height, 97.273, kg, 08/29/20 5:30:00 CDT, Weight Saline No Notes: Memoria Flush 0.9% 4-09 (Same as: l 15:25: BD Lynn 00 Posiflush) Lorazepam No Notes: Memori a [...] 0.9% 4-09 (Same as: l 15:25: BD Lynn 00 Posiflush) Lorazepam No Notes: Memori a 4-09 (Same as: l 15:25: Ativan) Lorazepam No Notes: Memori a 4-09 (Same as: l 15:25: Ativan) Lynn 00 Saline No Notes: Memoria Flush 0.9% 4-09 (Same as: l 15:25: BD Marty Posiflush) Lorazepam No Notes: Memori a 4-09 (Same as: l 15:25: Ativan) Saline No Notes: Memoria Flush 0.9% 4-09 (Same as: l 15:25: BD Marty Posiflush) Lorazepam No Notes: Memori a 4-09 (Same as: l 15:25: Ativan) Saline No Notes: Memoria Flush 0.9% 4-09 (Same as: l 15:25: BD Lynn Posiflush) Lorazepam No Notes: Memori a 4-09 [...] ONCE, Stop date: 08/29/20 9:49:00 CDT heparin 2021-0 No Route: IV, Acesar lisa (ANES) 08-29 Drug form: l 14:49: INJ, ONCE, Stop date: 08/29/20 9:49:00 CDT heparin 2021-0 No Route: IV, Caesar [...] 2021-0 No Route: IV, Mem oria (ANES) - Drug form: l 14:29: INJ, ONCE, Stop date: 08/29/20 9:29:00 CDT heparin 2021-0 No Route: IV, Caesar lsia (ANES) 08-29 Drug form: l 14:18: INJ, [...] ONCE, Stop date: 08/29/20 9:18:00 CDT heparin 0 [...] oria ne 08-29 Route: l 14:01: IVP, Lynn 00 Q5Min, Dosing Weight 97.273, kg, PRN Pain Score 7-10, Start date: 08/29/20 9:01:00 CDT, Duration: 4 doses or times, Stop date: Limited # of times Flumazenil 1-0 No 0.2 mg, Caesar lisa 08-29 Route: l 14:01: IVP, PRN, Lynn 00 Dosing Weight 97.273, kg, PRN Benzodiaze pine Reversal, Initial dose, Start date: 08/29/20 9:01:00 CDT, Duration: 30 day, Stop date: 09/28/20 9:00:00 CDT Naloxone 1-0 No 0.4 mg, Memori a 08-29 Route: l 14:01: IVP, Lynn 00 Q2MIN, Dosing Weight 97.273, kg, PRN Narcotic Reversal, Start date: 08/29/20 9:01:00 CDT, Duration: 8 doses or times, Stop date: Limited # of times Ondansetron 1-0 No 4 mg, Memor ia 08-29 Route: l 14:01: IVP, ONCE, Lynn 00 Dosing Weight 97.273, kg, PRN Nausea [...] 08-29 Route: PO, l 14:01: Drug form: Lynn 00 TAB, ONCE, Dosing Weight 97.273, kg, [...] Memori a 08-29 Route: l 14:01: IVP, Lynn 00 Q2MIN, Dosing Weight 97.273, kg, PRN [...] Memori a 08-29 Route: l 14:01: IVP, Lynn 00 Q5Min, Dosing Weight 97.273, kg, PRN [...] lisa 08-29 Route: l 14:01: IVP, PRN, Lynn 00 Dosing Weight 97.273, kg, PRN Benzodiaze [...] ia 08-29 Route: l 14:01: IVP, ONCE, Lynn 00 Dosing Weight 97.273, kg, PRN Nausea & Vomiting, Start date: 08/29/20 9:01:00 CDT Labetalol 1-0 No 10 mg, Memori a 08-29 Route: l 14:01: IVP, Lynn 00 Q5Min, Dosing Weight 97.273, kg, PRN Elevated BP, Start date: 08/29/20 9:01:00 CDT, Duration: 5 doses or times, Stop date: Limited # of times Acetaminoph 2021-0 No 1,000 mg, M emoria en 08-29 Route: PO, l 14:01: Drug form: Lynn 00 TAB, ONCE, Dosing Weight 97.273, kg, [...] Memori a 08-29 Route: l 14:01: IVP, Lynn 00 Q5Min, Dosing Weight 97.273, kg, PRN Elevated BP, Start date: 08/29/20 9:01:00 CDT, Duration: 5 doses or times, Stop date: Limited # of times Acetaminoph 2021-0 No 1,000 mg, M emoria en 08-29 Route: PO, l 14:01: Drug form: Lynn 00 TAB, ONCE, Dosing Weight 97.273, kg, [...] oria ne 08-29 Route: l 14:01: IVP, Lynn 00 Q5Min, Dosing Weight 97.273, kg, PRN [...] lisa 08-29 Route: l 14:01: IVP, PRN, Lynn 00 Dosing Weight 97.273, kg, PRN Benzodiaze pine Reversal, Initial dose, Start date: 08/29/20 9:01:00 CDT, Duration: 30 day, Stop date: 09/28/20 9:00:00 CDT Ondansetron 2021-0 No 4 mg, Memor ia 08-29 Route: l 14:01: IVP, ONCE, Lynn 00 Dosing Weight 97.273, kg, PRN Nausea [...] ia 08-29 Route: l 14:01: IVP, ONCE, Lynn 00 Dosing Weight 97.273, kg, PRN Nausea [...] lisa 08-29 Route: l 14:01: IVP, PRN, Lynn 00 Dosing Weight 97.273, kg, PRN Benzodiaze [...] ia 08-29 Route: l 14:01: IVP, ONCE, Lynn 00 Dosing Weight 97.273, kg, PRN Nausea [...] 08-29 Route: PO, l 14:01: Drug form: Lynn 00 TAB, ONCE, Dosing Weight 97.273, kg, [...] oria ne 08-29 Route: l 14:01: IVP, Lynn 00 Q5Min, Dosing Weight 97.273, kg, PRN [...] 08-29 Drug form: l 13:42: INJ, ONCE, Lynn 00 Stop date: 08/29/20 8:42:00 CDT norepinephr 2020-0 No Route: IV, Memoria ine (ANES) 08-29 Drug form: l 10 13:15: INJ, Start Marty microgram 00 date: 08/29/20 8:15:00 CDT, Stop date: 08/29/20 9:15:00 CDT norepinephr 2020-0 No Route: IV, Memoria ine (ANES) 08-29 Drug form: l 10 13:15: INJ, Start Lynn microgram 00 date: 08/29/20 8:15:00 CDT, Stop [...] Drug form: l 10 13:15: INJ, Start Lynn microgram 00 date: 08/29/20 8:15:00 CDT, Stop date: 08/29/20 9:15:00 CDT norepinephr 2020-0 No Route: IV, Memoria ine (ANES) 08-29 Drug form: l 10 13:15: INJ, Start Marty microgram 00 date: 08/29/20 8:15:00 CDT, Stop date: 08/29/20 9:15:00 CDT Sodium 2021-0 No Route: IV, Memor ia Chloride 4-09 Total l 0.9% IV 12:30: Volume: Lynn (ANES) 1000 00 1,000, mL Start date: 08/29/20 7:30:00 CDT, Stop date: 08/29/20 8:30:00 CDT Sodium 2021-0 No Route: IV, Memor ia Chloride 4-09 Total l 0.9% IV 12:30: Volume: Lynn (ANES) 1000 00 1,000, mL Start date: 08/29/20 7:30:00 CDT, Stop date: 08/29/20 8:30:00 CDT Sodium 2021-0 No Route: IV, Memor ia Chloride 4-09 Total l 0.9% IV 12:30: Volume: Marty (ANES) 1000 00 1,000, mL Start date: 08/29/20 7:30:00 CDT, Stop date: 08/29/20 8:30:00 CDT Sodium 2021-0 No Route: IV, Memor ia Chloride 4-09 Total l 0.9% IV 12:30: Volume: Lynn (ANES) 1000 00 1,000, mL Start date: 08/29/20 7:30:00 CDT, Stop date: 08/29/20 8:30:00 CDT Sodium 2021-0 No Route: IV, Memor ia Chloride 4-09 Total l 0.9% IV 12:30: Volume: Lynn (ANES) 1000 00 1,000, mL Start date: 08/29/20 7:30:00 CDT, Stop date: 08/29/20 8:30:00 CDT Sodium 2021-0 No Route: IV, Memor ia Chloride 4-09 Total l 0.9% IV 12:30: Volume: Marty (ANES) 1000 00 1,000, mL Start date: 08/29/20 7:30:00 CDT, Stop date: 08/29/20 8:30:00 CDT Sodium 2021-0 No Route: IV, Memor ia Chloride 4-09 Total l 0.9% IV 12:30: Volume: Lynn (ANES) 1000 00 1,000, mL Start date: [...] PO, l tablet 11:43: BID, # 60 Aptel n 00 tab, 0 Refill(s) busPIRone 2020-0 [...] PO, l Hydrochlori 11:42: Q24H, # 30 Lynn de 150 MG 00 tab, 0 Extended [...] PO, l Hydrochlori 11:42: Q24H, # 30 Lynn de 150 MG 00 tab, 0 Extended Refill(s) Release Tablet apixaban 2020-0 Yes 5 mg, PO, Me moria MG Oral 4 Q12H, tab, l Tablet 11:41: 0 Marty [Eliquis] 00 Refill(s), For Atrial Fibrilatio n apixaban 2020-0 Yes 5 mg, PO, Me moria MG Oral 4- Q12H, tab, l Tablet 11:41: 0 Lynn [Eliquis] 00 Refill(s), For Atrial Fibrilatio n apixaban 2020-0 Yes 5 mg, PO, Me moria MG Oral 4- Q12H, tab, l Tablet 11:41: 0 Lynn [Eliquis] 00 Refill(s), For Atrial Fibrilatio n apixaban 5 2020-0 Yes 5 mg, PO, Me moria MG Oral 4- Q12H, tab, l Tablet 11:41: 0 Lynn [Eliquis] 00 Refill(s), For Atrial Fibrilatio n apixaban 5 2020-0 Yes 5 mg, PO, Me moria MG Oral 4- Q12H, tab, l Tablet 11:41: 0 Lynn [Eliquis] 00 Refill(s), For Atrial Fibrilatio n apixaban 5 0 Yes 5 mg, PO, Me moria MG Oral 4-09 Q12H, tab, l Tablet 11:41: 0 Lynn [Eliquis] 00 Refill(s), For Atrial Fibrilatio n apixaban 5 2020-0 Yes 5 mg, PO, Me moria MG Oral 4-09 Q12H, tab, l Tablet 11:41: 0 Lynn [Eliquis] 00 Refill(s), For Atrial Fibrilatio n AMIODarone Yes 200 mg = 1 M emoria 200 mg oral 4-09 tab, PO, l tablet 11:38: Daily, # Marty 00 90 tab, 3 Refill(s) AMIODarone 2020-0 Yes 200 mg = 1 M emoria 200 mg oral 4-09 tab, PO, l tablet 11:38: Daily, # Lynn 00 90 tab, 3 Refill(s) AMIODarone 2020-0 Yes 200 mg = 1 M emoria 200 mg oral 4-09 tab, PO, l tablet 11:38: Daily, # Lynn 00 90 tab, 3 Refill(s) AMIODarone 0 [...] it y of mg tablet 08:18: (two) [place] 30 times Medical daily. Branch amiodarone 2020-0 Yes 100mg Take 100 Un matt 100 mg 3-17 mg by ity of tablet 08:18: mouth [place] 30 daily. Medical Branch apixaban 2020-0 Yes 5mg Take 5 mg Univ ers (ELIQUIS) 5 3-17 by mouth 2 it y of mg tablet 08:18: (two) [place] 30 times Medical daily. Branch amiodarone 2020-0 Yes 100mg Take 100 Un matt 100 mg 3-17 mg by ity of tablet 08:18: mouth [place] 30 daily. Medical Branch predniSONE Yes [place] [...] 15mg QD Take 15 mg [facility] (REMERON) 07-28- by mouth st 15 MG 15:16: 00:00 [...] awake for 30 days. budesonide 2019-05- No [id number] .5mg Q.5D Take 2 mL [facility]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 2020-06-03 [facility] 1.2.840.5 [id number] Methodi 00:00:00 00:00:[address] 3.430.2.7 Hospit a .3.757609 l .8 2020-06-02 2020-06-02 [facility]phone [facility], 1.2.840.9 [id number] Methodi 00:00:00 00:00:[address] 3.430.2.7 Hospit a .3.703555 l .8 2020-05-13 2020-05-13 Orders Provider, 1.2.840.1 [id number] 2100 [id number] Methodi 00:00:00 00:00:00 Only Historical 74531.1.1 108 s t 3.430.2.7 Hospit a .3.053823 l .8 2020-05-09 2020-05-09 Telephone [facility], 1.2.840.1 [id number] Methodi 00:00:00 00:00:00 Sarai Lieberman 90375.1.1 660 s t 3.430.2.7 Hospit a .3.965903 l .8 2020-05-09 2020-05-09 Telephone [facility], 1.2.840.5 [id number] Methodi 00:00:00 00:00:[address] 3.430.2.7 Hospit a .3.900862 l .8 2020-05-08 2020-05-08 Telephone [facility], 1.2.840.3 [id number] Methodi 00:00:00 00:00:[address] 3.430.2.7 Hospit a .3.940800 l .8 2020-05-07 2020-05-07 Telephone [facility], 1.2.840.5 [id number] Methodi 00:00:00 00:00:[address] 3.430.2.7 Hospit a .3.960327 l .8 2020-05-05 2020-05-05 Telephone [facility], 1.2.840.8 [id number] Methodi 00:00:00 00:00:[address] 3.430.2.7 Hospit a .3.406914 l .8 2020-04-25 2020-05-03 [facility], 1.2.840.1 [id number] 2100 694698 Methodi 17:33:00 13:39:00 Encounter Ray 36143.1.[address] 3.430.2.7 Hospit a .3.579950 l .8 2020-04-28 2020-04-28 Anesthesia Tomas Pinon 1.2.840.1 [id number] Methodi 13:38:00 19:40:00 Event Justine Catalan 50041.1.[address] 3.430.2.7 Hospit a .3.868319 l .8 2020-04-28 2020-04-28 Surgery [facility], 1.2.840.1 [id number] 10541 08608 Methodi 13:00:00 17:10:[address] 3.430.2.7 Hospit a .3.272042 l .8 2020-04-25 2020-04-25 [facility], 1.2.840.1 [id number] 2100 [id number] Methodi 10:00:00 17:32:00 Encounter Ray [address]363.1.[address] 3.430.2.7 Hospit a .3.950264 l .8 2020-04-25 2020-04-25 [facility], 1.2.840.1 [id number] 97820 47120 Methodi 11:43:50 13:44:26 Visit Ray [address]8594.1.[address] 3.430.2.7 Hospit a .3.712438 l .8 2020-04-25 2020-04-25 Travel 1.2.840.1 1.2.955.047 7704 907872 Methodi 00:00:00 00:00:[address] 3.430.2.7 0.2.7.3.698 Ho spita .3.685829 084.8 l .8 2020-04-24 2020-04-24 Prep for Carol Ann, 1.2.840.1 [id number] 2 [id number] Methodi 00:00:00 00:00:00 Surgery Sarai CorbinChelsie 21961.1.1 524 s t 3.430.2.7 Hospit a .3.353485 l .8 2020-04-22 2020-04-22 Telephone Meli, 1.2.840.1 [id number] 697 [id number] Methodi 00:00:00 00:00:[address] 3.430.2.7 Hospit a .3.299165 l .8 2020-04-22 2020-04-22 Travel 1.2.840.1 1.2.429.231 6581 089508 Methodi 00:00:00 00:00:[address] 3.430.2.7 0.2.7.3.698 Ho spita .3.082790 084.8 l .8 2020-04-21 2020-04-21 Emergency Geraldo 1.2.840.1 [id number] 2 [id number] Methodi 06:51:00 10:43:[address] 3.430.2.7 Hospit a .3.816732 l .8 2020-04-21 2020-04-21 [facility] 1.2.840.1 [id number] Methodi 00:00:00 00:00:00 Only Sarai M. 23434.1.1 550 s t 3.430.2.7 Hospit a .3.731467 l .8 2020-04-16 2020-04-16 Telephone [facility], 1.2.840.1 [id number] Methodi 00:00:00 00:00:00 Sarai M. 15406.1.1 673 s t 3.430.2.7 Hospit a .3.619340 l .8 2020-04-10 2020-04-10 Telephone [facility], 1.2.840.0 [id number] Methodi 00:00:00 00:00:[address] 3.430.2.7 Hospit a .3.037122 l .8 2020-04-07 2020-04-07 Telephone [place], 1.2.840.1 [id number] 2099 [id number] Methodi 00:00:00 00:00:[address] 3.430.2.7 Hospit a .3.645645 l .8 2020-04-01 2020-04-01 Orders [facility], 1.2.840.1 [id number] 2100 877370 Methodi 00:00:00 00:00:00 Only Historical 93214.1.1 049 s t 3.430.2.7 Hospit a .3.321794 l .8 2020-03-31 2020-03-31 Travel 1.2.840.1 1.2.842.693 6247 768152 Methodi 00:00:00 00:00:[address] 3.430.2.7 0.2.7.3.698 Ho spita .3.153557 084.8 l .8 2020-03-27 2020-03-27 Telephone Ramiro Mitchell 1.2.840.5 [id number] 21 [id number] Methodi 00:00:00 00:00:[address] 3.430.2.7 Hospit a .3.444820 l .8 Results Test Description Test Time Test Comments Results Result Comments Source Gastrointestinal panel 2020-12-09 04:35:05 Test Item Value Reference Range Interpretation Comme nts Adenovirus 40/41 PCR (test code = Not Detected Specimen InformationSpecimen 5113) Source: StoolSp ecimen Site: Nonpreserved Astrovirus PCR [...] Rotavirus PCR (test code = Not Detected 2266176) Salmonella PCR (test code = 4783) Not Detected Sapovirus PCR (test code = 4791) Not Detected Enterotoxigenic E coli PCR (test Not Detected code = 4786) Shigatoxin producing E coli PCR Not Detected (test code = 4787) E coli O157 PCR (test code = Not Reported 7120) Vibrio PCR (test code = 7121) Not Detected Vibrio cholerae PCR (test code = Not Detected 71) Yersinia enterocolitica PCR (test Not Detected code = 7123) Giardia lamblia PCR (test code = Not Detected 7124) [facility] [id number] 19:17:40EXAMINATION: XR ABDOMEN 1 VW CLINICAL HISTORY: [...] Osseous structures are stable. Cholecystectomy clips are noted.[id number] [place] < 1 Boyc1397-79-39 19:41:02EXAMINATION: OR FL < 1 HOUR C-arm fluoroscopy was requested in OR. Location: [facility] OR [facility] 6 Procedure: EGD WITH BOTOX INJECTION INTO [...] arm fluoroscopy was requested in OR. Location: [facility] OR room 6 Procedure: EGD WITH BOTOX INJECTION INTO THE PYLORUS, ENDOFLIP, ON TABLE ESOPHAGRAM (N/A ) Start: 1140 End:1222 FluoroTime: .19sec Dose: 7.8mGy Tech: A.BIMPRESSION:Intraoperative fluoroscopic images. Radiologist was not present during the examination.Separate operative report will be issued by the physician performingthe procedure.[id number] 2020-09-08 19:30:47 Test Item Value Reference Range Interpretation Comments Case number (test [id number] code = 4695061) Surgical pathology See link below for PDF report (test code = Lab Report 2255) Result status (test This is Supplemental code = 5003489) Report for [id number] [facility] 1 Vw Ynaxndsm3282-71-16 23:06:58EXAMINATION: XR CHEST 1 VW PORTABLE HISTORY: [...] enlarged, similar to prior. Bilateral shoulder arthroplasties. [facility]-[id number] Interface, Radiology Results 09/06/2020 6:09PM CDT EXAMINATION: [...] silhouette is enlarged, similar to prior.Bilateral shoulder arthroplasties.[facility][id number] MzjwvknqHjcaqd9613-97-81 16:47:23Kirit Flood MD 09/05/2020 11:[address]: [...] RSI: Yes Number of Attempts at Approach: [place] [address] dbix6647-16-26 23:21:56 Test Item Value Reference Range Interpretation [...] T wave abnormality, consider anterior ischemia-Abnormal ECG- [facility] qualitative WNJ6323-75-68 22:48:41 Test Item Value Reference Range Interpretation Comments Interpretation (test Negative results do code = 2362733) not preclude 2019-nCoV infection and should not be used as the sole basis for treatment or other patient management decisions. Negative results must be combined with clinical observations, patient history, and epidemiological information. COVID-19 qualitative Not-Detected Not-Detected RT-PCR result (test code = 84664-7) COVID-19 qualitative See link below for C ase Number: RT-PCR (test code = PDF Lab Report [id number]) [facility]2021-04-09 16:31:00 Test Item Value Reference Range Interpretation Comments POC Activated Clotting Time (test code 153 s = POC Activated Clotting Time) [facility] HospitalSjfkbttJQUGPSZBRF4578-13-41 16:31:00 Test Item Value Reference Range Interpretation Comments POC Activated Clotting Time (test code 153 s = POC Activated Clotting Time) [facility] HospitalYnkttopLDYYHYHDYY9787-35-04 16:31:00 Test Item Value Reference Range Interpretation Comments POC Activated Clotting Time (test code 153 s = POC Activated Clotting Time) [place] 915211-04-09 16:31:00 Test Item Value Reference Range Interpretation Comments POC Activated Clotting Time (test code 153 s = POC Activated Clotting Time) [place] 915211-04-09 16:31:00 Test Item Value Reference Range Interpretation Comments POC Activated Clotting Time (test code 153 s = POC Activated Clotting Time) [facility] HospitalBoylgkwIOJHFQOLYN5149-16-99 16:31:00 Test Item Value Reference Range Interpretation Comments POC Activated Clotting Time (test code 153 s = POC Activated Clotting Time) [facility] HospitalZtzqfzyGXZMDEEUHG2149-46-86 16:31:00 Test Item Value Reference Range Interpretation Comments POC Activated Clotting Time (test code 153 s = POC Activated Clotting Time) [facility] HospitalRdvwsnaZBSKLZBDZR6328-19-52 14:37:00 Test Item Value Reference Range Interpretation Comments POC Activated Clotting Time (test code 454 s = POC Activated Clotting Time) [facility] HospitalRoqzcraDQHLATQKKH3530-42-05 14:37:00 Test Item Value Reference Range Interpretation Comments POC Activated Clotting Time (test code 454 s = POC Activated Clotting Time) [facility] HospitalUgazdoiBWGMOZTBJC2592-48-09 14:37:00 Test Item Value Reference Range Interpretation Comments POC Activated Clotting Time (test code 454 s = POC Activated Clotting Time) [facility] HospitalPrdawvqZQUQSVLAKJ6784-24-06 14:37:00 Test Item Value Reference Range Interpretation Comments POC Activated Clotting Time (test code 454 s = POC Activated Clotting Time) [facility] HospitalUwhppksJTZJTDYGBB6111-90-39 14:37:00 Test Item Value Reference Range Interpretation Comments POC Activated Clotting Time (test code 454 s = POC Activated Clotting Time) [facility] HospitalUgddjnbPRAVQMAVQL8305-55-57 14:37:00 Test Item Value Reference Range Interpretation Comments POC Activated Clotting Time (test code 454 s = POC Activated Clotting Time) [facility] HospitalPqcgwcwQOUVZWEFHR4597-95-25 14:37:00 Test Item Value Reference Range Interpretation Comments POC Activated Clotting Time (test code 454 s = POC Activated Clotting Time) [facility] HospitalMnmmxpnXLCXATFFMT8696-14-85 14:13:00 Test Item Value Reference Range Interpretation Comments POC Activated Clotting Time (test code 354 s = POC Activated Clotting Time) [facility] HospitalSzhwiptYEJXZAMJLO7832-84-10 14:13:00 Test Item Value Reference Range Interpretation Comments POC Activated Clotting Time (test code 354 s = POC Activated Clotting Time) [facility] HospitalAjvwglmKUSCYDSRGQ0139-52-19 14:13:00 Test Item Value Reference Range Interpretation Comments POC Activated Clotting Time (test code 354 s = POC Activated Clotting Time) [facility] HospitalCdbabxjBSMJMWYSNF5144-23-66 14:13:00 Test Item Value Reference Range Interpretation Comments POC Activated Clotting Time (test code 354 s = POC Activated Clotting Time) [facility] HospitalJotegbuWVHIIBKGZW6098-73-84 14:13:00 Test Item Value Reference Range Interpretation Comments POC Activated Clotting Time (test code 354 s = POC Activated Clotting Time) [facility] HospitalHextbgkDHIZKFQXZZ8612-31-97 14:13:00 Test Item Value Reference Range Interpretation Comments POC Activated Clotting Time (test code 354 s = POC Activated Clotting Time) [facility] HospitalXlrznkeLYPTINPUSL7536-53-06 14:13:00 Test Item Value Reference Range Interpretation Comments POC Activated Clotting Time (test code 354 s = POC Activated Clotting Time) [facility] WZPVLQP4457-26-34 10:37:00Negative (08/29/20 5:37 AM) [facility] HermannCHEM QUEHK7968-20-32 10:37:50721Jrtcblip HermannCHEM PANEL 2020-08-29 10:37:0028[facility] HermannCHEM EFQZE5218-65-26 10:37:001.01[facility] HermannCHEM TTCEY0198-73-03 10:37:90791Lzxvruoj HermannCHEM SFCLT6288-09-24 10:37:003.8[facility] HermannCHEM USFWQ9237-97-34 10:37:69825Ozlkxhbf HermannCHEM SMPLA2014-53-05 10:37:0028[facility] HermannCHEM VRORW7781-22-46 10:37:009.8 [facility] HermannCHEM XWSKM4044-09-15 10:37:0011.8[facility] HermannCHEM PANEL 2020-08-29 10:37:0059[facility] HermannCHEM GXHLX4880-35-60 10:37:002.9[facility] KkvsldzCDYJBBDLOM3898-78-37 10:37:006.8[facility] MsiyduoPXJBDIJPLN4392-62-87 10:37:004.47[facility] MnpkjswRGKIZUOWGV0690-62-24 10:37:0010.6[facility] INXGABIAMI0337-53-65 10:37:0034.0[facility] KuxeyflSVFELROUGQ1618-17-20 10:37:00 76.1[facility] CtxbmrgLPMALVLDLK7982-56-35 10:37:00 Test Item Value Reference Range Interpretation Comments MCH (test code = MCH) 23.8 pg 27.0-31.0 Memorial LpbiombZHMDZCEXUX5504-48-95 10:37:0031.3[facility] HermannHEMATOLOGY 2020-08-29 10:37:0018.2[facility] UutsqpqOGINFMENYG5328-93-60 10:37:30170Jsgkuigs AawfewvRIKZNEOSUD6509-58-05 10:37:007.5[facility] DdpitaaWKDDUANMBQ3320-65-83 10:37:00 Test Item Value Reference Range Interpretation Comments PT (test code = PT) 12.8 s 12.0-14.7 Memorial CokdsthWBTWIZIUGI6936-66-75 10:37:00 Test Item Value Reference Range Interpretation Comments INR (test code = INR) 0.97 1 0.85-1.17 Memorial XqmwdvfAIPZPFSWHE2984-51-03 10:37:00 Test Item Value Reference Range Interpretation Comments PTT (test code = PTT) 25.0 s 22.9-35.8 Memorial RexlaxgSNKPEQNNKM8066-87-98 10:37:0070.5[facility] HermannHEMATOLOGY 2020-08-29 10:37:0018.8[facility] KfpdecsYKENLEIQDK0679-82-11 10:37:009.5[facility] VuufhevKISEYFUJNA9730-37-36 10:37:000.9[facility] VfrucmjQQOIICRBWJ4442-60-11 10:37:000.3[facility] OukuptkSLVLPPXOGC8921-32-58 10:37:004.8[facility] SRRKGSUJNI0638-83-92 10:37:001.3[facility] SqtfprkMSTMBBOPFE5515-49-46 10:37:000.6 Memorial PpiuxowRKMGSLLSAP6626-40-06 10:37:000.1[facility] HermannHEMATOLOGY 2020-08-29 10:37:001+ *ABN*(08/29/20 5:37 AM)[facility] WzehrznSVCOUULVQV4126-06-41 10:37:00Not Detected (08/29/20 5:37 AM)[facility] HermannBLOOD BANK RESULTS 2020-08-29 10:37:00Negative (08/29/20 5:37 AM)[facility] HermannCHEM LXZJW3799-42-32 10:37:95990Xmvceeff HermannCHEM NGZPX5297-03-39 10:37:0028[facility] HermannCHEM PPTCB4471-62-59 10:37:001.01[facility] HermannCHEM QHTIS6267-12-87 10:37:23066 [facility] HermannCHEM DDMPC7716-99-96 10:37:003.8[facility] HermannCHEM PANEL 2020-08-29 10:37:85785Szgbrxyd HermannCHEM ZMIRP1619-90-35 10:37:0028[facility] HermannCHEM EEZYC7528-66-44 10:37:009.8[facility] HermannCHEM AWLEO9116-63-06 10:37:0011.8[facility] HermannCHEM XSXCZ3475-20-02 10:37:0059[facility] HermannCHEM ZDKBF4322-78-33 10:37:002.9[facility] PxgvyzuAENLSCKZOF4251-63-06 10:37:006.8 Memorial LomtiagIDIUYGJQLB2215-17-27 10:37:004.47[facility] HermannHEMATOLOGY 2020-08-29 10:37:0010.6[facility] KsnsoxyFQEXFCYTFL0376-08-82 10:37:0034.0[facility] YwtxiogCOLASAMKRC7367-56-85 10:37:0076.1[facility] DcpfwwmHMJDTSTIQO7408-13-90 10:37:00 Test Item Value Reference Range Interpretation Comments MCH (test code = MCH) 23.8 pg 27.0-31.0 Memorial JijkywcLCGPUBKYPM7260-18-80 10:37:0031.3[facility] HermannHEMATOLOGY 2020-08-29 10:37:0018.2[facility] LldpxhnQQILNMJBDZ0445-35-65 10:37:41003Gmhuocdr KujaijxLPNLMMNTGP6537-25-59 10:37:007.5[facility] RfnzcccYBFDHMCTZL8277-44-87 10:37:00 Test Item Value Reference Range Interpretation Comments PT (test code = PT) 12.8 s 12.0-14.7 Memorial BqtestlQWCUEKXZIM2357-56-22 10:37:00 Test Item Value Reference Range Interpretation Comments INR (test code = INR) 0.97 1 0.85-1.17 Memorial TkwblteTVKQLYMBZW7104-22-66 10:37:00 Test Item Value Reference Range Interpretation Comments PTT (test code = PTT) 25.0 s 22.9-35.8 Memorial VnclniaEXDBUBYICW5031-52-24 10:37:0070.5[facility] HermannHEMATOLOGY 2020-08-29 10:37:0018.8[facility] QvqtrzqDJYTGUEXGJ4404-70-64 10:37:009.5[facility] DjgsxebHBTGAQXYTH3418-19-69 10:37:000.9[facility] CkizhjcQDZBERXRQZ2339-36-66 10:37:000.3[facility] AmexmvfDUYSQDUOHN4315-97-08 10:37:004.8[facility] Marty SFJKIMOUPW1049-49-00 10:37:001.3[facility] HrkgbchEVSQEEEAMA5382-04-67 10:37:000.6 [facility] PnizljcBSKDWDLGLK6593-89-37 10:37:000.1[facility]annHEMATOLOGY 2020-08-29 10:37:001+ *ABN*(08/29/20 5:37 AM)[facility] WtevzsfSEHOXVGRXZ7830-36-56 10:37:00Not Detected (08/29/20 5:37 AM)[facility]annBL[facility] BANK RESULTS 2020-08-29 10:37:00Negative (08/29/20 5:37 AM)[facility]annCHEM UDIHI6908-31-60 10:37:73093Luayxudj HermannCHEM XEXQX7878-50-03 10:37:0028[facility]annCHEM TJRGA9094-04-96 10:37:001.01[facility]annCHEM ZZAEL2125-78-21 10:37:71198 [facility]annCHEM ZXELJ5609-69-32 10:37:003.8[facility]annCHEM PANEL 2020-08-29 10:37:50935Sjfrrxej HermannCHEM KJWVD1166-70-74 10:37:0028[facility]annCHEM WYWLQ0772-35-62 10:37:009.8[facility]annCHEM EHJQB8626-16-92 10:37:0011.8[facility] HermannCHEM NYGZE2049-69-26 10:37:0059[facility]annCHEM YWCAE1716-53-58 10:37:002.9[facility] YhiiictGHKYAEYVNP4142-62-40 10:37:006.8 [facility] PjhgxegKPGDYGJFOO7287-51-68 10:37:004.47[facility]annHEMATOLOGY 2020-08-29 10:37:0010.6[facility] XpmcthdUWOVSOKUEE7052-62-82 10:37:0034.0[facility] XsrhxdkVYKMCRMMYA9536-25-85 10:37:0076.1[facility] ZttjowxQNTDVMHMDK2961-31-93 10:37:00 Test Item Value Reference Range Interpretation Comments MCH (test code = MCH) 23.8 pg 27.0-31.0 [facility] WufqbmpPXFTUWEOZX9523-86-98 10:37:0031.3[facility]annHEMATOLOGY 2020-08-29 10:37:0018.2[facility] HzdgqacYDYZPMOXCG7576-29-47 10:37:35604Gvgkuqja YicjyjpEQRAXEMWOD7609-67-90 10:37:007.5[facility] AaqwjayGYNAICATTF4292-10-24 10:37:00 Test Item Value Reference Range Interpretation Comments PT (test code = PT) 12.8 s 12.0-14.7 [facility] CbgyihrMVIXSOTKAD9386-14-17 10:37:00 Test Item Value Reference Range Interpretation Comments INR (test code = INR) 0.97 1 0.85-1.17 [facility] UtkxkuaNJMPVUTSDK4581-30-78 10:37:00 Test Item Value Reference Range Interpretation Comments PTT (test code = PTT) 25.0 s 22.9-35.8 [facility] RqwnfjlFMOFECXLCL3003-72-18 10:37:0070.5[facility]annHEMATOLOGY 2020-08-29 10:37:0018.8[facility] ScfoqwsKFAXXYWBGE0789-50-32 10:37:009.5[facility] RexuuvlRLRANUWSWU2147-28-77 10:37:000.9[facility] JosrynqHMSSMOBBJA1750-59-69 10:37:000.3[facility] XskfhetXWQGMIASXP8744-00-05 10:37:004.8[facility] JJHHUAKSCS2069-09-88 10:37:001.3[facility] UscnaizNZCKCCHSWW8192-15-32 10:37:000.6 [facility] VpplbvzBMNOZJGZED9972-56-97 10:37:000.1[facility]annHEMATOLOGY 2020-08-29 10:37:001+ *ABN*(08/29/20 5:37 AM)[facility] QzsgoxzKSTRDMTHVD7167-16-50 10:37:00Not Detected (08/29/20 5:37 AM)[facility]annBLOOD BANK RESULTS 2020-08-29 10:37:00Negative (08/29/20 5:37 AM)[facility]annCHEM FPYIN0738-11-75 10:37:71101Lnjbqwby HermannCHEM MGGKH1423-31-71 10:37:0028[facility]annCHEM ABNCV1122-09-13 10:37:001.01[facility]annCHEM MPOPJ7819-13-21 10:37:19761 [facility]annCHEM PNDIB2431-73-71 10:37:003.8[facility] HermannCHEM PANEL 2020-08-29 10:37:34863Kinnydyd HermannCHEM MMVWK6934-86-30 10:37:0028[facility] HermannCHEM LCDAW6674-70-98 10:37:009.8[facility] HermannCHEM LNPVZ7145-18-73 10:37:0011.8[facility] HermannCHEM WKSLF7040-80-50 10:37:0059[facility]annCHEM ZVSXO7050-45-27 10:37:002.9[facility] LqlvjidSCVTVWYJUT1751-29-99 10:37:006.8 [facility] DccnaowXYHUWRAWES8943-07-73 10:37:004.47[facility]annHEMATOLOGY 2020-08-29 10:37:0010.6[facility] CxaatmuIPBBXQRTWI1551-67-88 10:37:0034.0[facility] WfadaoaOLBDBBUVAM6421-08-99 10:37:0076.1[facility] TrwbtzoSCYMGZLNBK3715-05-40 10:37:00 Test Item Value Reference Range Interpretation Comments MCH (test code = MCH) 23.8 pg 27.0-31.0 [facility] UoedpkrTGQURRBLXR8184-47-53 10:37:0031.3[facility]ann[facility]MATOLOGY 2020-08-29 10:37:0018.2[facility] ZvdqcstACHHQZLZLN7701-72-00 10:37:62148Azhdevhs ElujtzgNUUIAONVJR8822-96-63 10:37:007.5[facility] YvxtonsCFEANJAKRB9563-87-20 10:37:00 Test Item Value Reference Range Interpretation Comments PT (test code = PT) 12.8 s 12.0-14.7 [facility] HbiyaprQRFQRVHATG4900-85-80 10:37:00 Test Item Value Reference Range Interpretation Comments INR (test code = INR) 0.97 1 0.85-1.17 [facility] UzzkjkdWUDJFDINWE3740-14-51 10:37:00 Test Item Value Reference Range Interpretation Comments PTT (test code = PTT) 25.0 s 22.9-35.8 [facility] KbvgxmcTEMVUQHVOZ0093-64-50 10:37:0070.5[facility]annHEMATOLOGY 2020-08-29 10:37:0018.8[facility] RicgtkdSGWLLQZQBX9813-14-75 10:37:009.5[facility] EqzjbzgBZRHGSRFEO8739-16-52 10:37:000.9[facility] SqndbbzHHDMLQOUIZ3601-73-11 10:37:000.3[facility] JylaoyjUEJHNYBDSA1618-91-95 10:37:004.8[facility] Marty TNFFVHHGXW6419-52-50 10:37:001.3[facility] GpkmodxFVQCGLXCQP6334-16-04 10:37:000.6 [facility] AagseoyQTAIAPJPVW1347-57-22 10:37:000.1[facility]annHEMATOLOGY 2020-08-29 10:37:001+ *ABN*(08/29/20 5:37 AM)[facility] JqbskycHDZRTVIYUK4410-89-00 10:37:00Not Detected (08/29/20 5:37 AM)[facility]ann[facility] RESULTS 2020-08-29 10:37:00Negative (08/29/20 5:37 AM)[facility]annCHEM RDFKO9061-63-42 10:37:51616Fkszgxyc HermannCHEM AVKMU8991-20-31 10:37:0028[facility]annCHEM HHLLD4175-68-13 10:37:001.01[facility]annCHEM UZAMC1852-75-40 10:37:70778 [facility]annCHEM ZRHAW1970-04-10 10:37:003.8[facility]annCHEM PANEL 2020-08-29 10:37:35178Yvhenqws HermannCHEM BJWEG2599-96-55 10:37:0028[facility]annCHEM QSZAM8826-03-72 10:37:009.8[facility]annCHEM NDLQD1540-71-22 10:37:0011.8[facility]annCHEM ZZJYC8522-37-32 10:37:0059[facility]annCHEM NQSIB0167-72-21 10:37:002.9[facility] AdxrrprCYPKFPVIST5842-24-89 10:37:006.8 [facility] YixdjedEZTHHERLLU7947-86-87 10:37:004.47[facility]annHEMATOLOGY 2020-08-29 10:37:0010.6[facility] HzayqnlFXKCANJFZA8168-16-35 10:37:0034.0[facility] KltwpxuVGPUMGKPIH6887-81-10 10:37:0076.1[facility] OsnwyxlXODSPFKEZM0527-60-63 10:37:00 Test Item Value Reference Range Interpretation Comments MCH (test code = MCH) 23.8 pg 27.0-31.0 [facility] YgxjytwMAWDZRDHJX0662-69-56 10:37:0031.3[facility]annHEMATOLOGY 2020-08-29 10:37:0018.2[facility] EagxjunTCCWGICZTF4151-29-34 10:37:18094Qefudseg YeizqluFPPMNUOCIB9655-61-03 10:37:007.5[facility] GsadgpuDSSDACMIVF5561-81-62 10:37:00 Test Item Value Reference Range Interpretation Comments PT (test code = PT) 12.8 s 12.0-14.7 [facility] PzbkfkcGQSYUVSQDC3071-14-20 10:37:00 Test Item Value Reference Range Interpretation Comments INR (test code = INR) 0.97 1 0.85-1.17 [facility] QbgbbliHDSWRZOOLR3206-00-89 10:37:00 Test Item Value Reference Range Interpretation Comments PTT (test code = PTT) 25.0 s 22.9-35.8 [facility] EnebxxsQNCQLEVMAY8895-58-17 10:37:0070.5[facility]annHEMATOLOGY 2020-08-29 10:37:0018.8[facility] VqqhxwtXUHSOCSWCZ3564-20-52 10:37:009.5[facility] MdpsxilPMULEIDIWS0800-39-84 10:37:000.9[facility] FmajzyjOCHMWHWNSL5436-75-48 10:37:000.3[facility] QckelokGZGLUGDRHV5692-50-83 10:37:004.8[facility] XKHNWYDUMW7072-59-22 10:37:001.3[facility] MjfjjtySSCUZZCJCA1010-30-85 10:37:000.6 [facility] GamskszFXPOBZASUO4062-67-67 10:37:000.1[facility]annHEMATOLOGY 2020-08-29 10:37:001+ *ABN*(08/29/20 5:37 AM)[facility] OwtrwcgAAJNUQUVTK7416-42-08 10:37:00Not Detected (08/29/20 5:37 AM)[facility]annBLOOD BANK RESULTS 2020-08-29 10:37:00Negative (08/29/20 5:37 AM)[facility]annCHEM WPQUO5504-13-47 10:37:67793Tyvrxsqe HermannCHEM URZGU0473-59-27 10:37:0028[facility]annCHEM RVWAZ8257-86-19 10:37:001.01[facility] HermannCHEM IELMU2987-51-24 10:37:21073 [facility]annCHE[facility] NRYQX9837-59-08 10:37:003.8[facility] HermannCHEM PANEL 2020-08-29 10:37:02326Cdjbnpdj HermannCHEM TESEO6556-01-43 10:37:0028[facility]annCHEM TDQNX2549-86-35 10:37:009.8[facility] HermannCHEM JRFWR0553-07-48 10:37:0011.8[facility] HermannCHEM ILPLW4191-67-21 10:37:0059[facility]annCHEM COHDJ1154-89-40 10:37:002.9[facility] XerursgGIHFYDYCTA1878-50-32 10:37:006.8 [facility] RyknhmcMZHUXILIYZ2440-14-27 10:37:004.47[facility]annHEMATOLOGY 2020-08-29 10:37:0010.6[facility] EpljkrxRABEHDEOES8155-55-85 10:37:0034.0[facility] VpdomziOTPVUMSNQT4529-84-33 10:37:0076.1[facility] NjdtoaqHTMKCBFKBB4154-24-69 10:37:00 Test Item Value Reference Range Interpretation Comments MCH (test code = MCH) 23.8 pg 27.0-31.0 [facility] TzobqsaCLQMZCXJCC1242-31-81 10:37:0031.3[facility]annHEMATOLOGY 2020-08-29 10:37:0018.2[facility] WrylnbvHHCSYXWKGH4578-11-81 10:37:19499Gbqwfolf CzjyfmkWMZRFLLQDL5558-64-24 10:37:007.5[facility] MpuljizPQWBLGDVND4585-31-41 10:37:00 Test Item Value Reference Range Interpretation Comments PT (test code = PT) 12.8 s 12.0-14.7 [facility] SyyabchLJTOFJOWPZ2348-90-12 10:37:00 Test Item Value Reference Range Interpretation Comments INR (test code = INR) 0.97 1 0.85-1.17 [facility] TxbzdsfQFHMYTOFEE4924-58-26 10:37:00 Test Item Value Reference Range Interpretation Comments PTT (test code = PTT) 25.0 s 22.9-35.8 [facility] ZzshyudVSKANZDEVF2458-13-20 10:37:0070.5[facility]annHEMATOLOGY 2020-08-29 10:37:0018.8[facility] IwssrjrWKXUGUBMOU1321-84-73 10:37:009.5[facility] CbgugvrKPHEDRINNE0096-35-40 10:37:000.9[facility] VwqyafzEMCWVWRHAF5104-46-45 10:37:000.3[facility] EbrwbkkIMWNGJTAJU8069-24-55 10:37:004.8[facility] Lynn REOZMCKFJK6924-04-86 10:37:001.3[facility] QjgeimfTOGGOXYNTF6729-42-43 10:37:000.6 [facility] DrloznlVFTKPRPXFV8417-94-19 10:37:000.1[facility]annHEMATOLOGY 2020-08-29 10:37:001+ *ABN*(08/29/20 5:37 AM)[facility] YzozmksVDLJUVPPAB0834-79-28 10:37:00Not Detected (08/29/20 5:37 AM)[facility]annBLOOD BANK RESULTS 2020-08-29 10:37:00Negative (08/29/20 5:37 AM)[facility] HermannCHEM OCDIJ8686-20-11 10:37:28980Bebxmmpj HermannCHEM VQESA8626-71-13 10:37:0028[facility] HermannCHEM EYOQM1911-26-77 10:37:001.01[facility] HermannCHEM RSDKZ1906-86-82 10:37:63411 [facility]annCHEM ZYCGN9965-55-82 10:37:003.8[facility] HermannCHEM PANEL 2020-08-29 10:37:69046Ksgdgrfq HermannCHEM PZVHX5054-08-12 10:37:0028[facility] HermannCHEM NWZIU6488-42-37 10:37:009.8[facility] HermannCHEM SOPEI2601-11-67 10:37:0011.8[facility] HermannCHEM FHPPT5839-57-82 10:37:0059[facility] HermannCHEM APIIR9038-81-14 10:37:002.9[facility] HbburcrJLVIBSZTAC4710-23-58 10:37:006.8 [facility] EwvjxhhWGTKOGUFEF3293-91-93 10:37:004.47[facility]annHEMATOLOGY 2020-08-29 10:37:0010.6[facility] PvhmrzaCXNLSDLKJQ8596-35-67 10:37:0034.0[facility] RzpvalrIUEDOEWWNX8399-29-20 10:37:0076.1[facility] EledfojCZAKRWWEPJ1585-38-49 10:37:00 Test Item Value Reference Range Interpretation Comments MCH (test code = MCH) 23.8 pg 27.0-31.0 [facility] YflfgctXADEGAKYVH1276-83-31 10:37:0031.3[facility]annHEMATOLOGY 2020-08-29 10:37:0018.2[facility] YybthbhPVKWBVJMYF6811-80-85 10:37:70268Ksuxyysl IycwpfcIZTUZLYWRN1830-95-57 10:37:007.5[facility] RnaacffIOYODXMXGP8227-97-80 10:37:00 Test Item Value Reference Range Interpretation Comments PT (test code = PT) 12.8 s 12.0-14.7 [facility] GdwhezdBSAIFCXSEP8369-07-13 10:37:00 Test Item Value Reference Range Interpretation Comments INR (test code = INR) 0.97 1 0.85-1.17 [facility] ZcrmexaYSEOIFKEQG7947-19-35 10:37:00 Test Item Value Reference Range Interpretation Comments PTT (test code = PTT) 25.0 s 22.9-35.8 [facility] AsftdybHFJBIHCYFJ9268-01-30 10:37:0070.5[facility]annHEMATOLOGY 2020-08-29 10:37:0018.8[facility] HmcgqwrMZJYCBBTTZ6193-39-54 10:37:009.5[facility] GbrpyrrHUQQYVKAFL4269-44-43 10:37:000.9[facility] JykzdusJHMHXBQFCP3597-16-79 10:37:000.3[facility] CtxwdeiUBPCPHBIGB1296-76-76 10:37:004.8[facility] TJUXQYABMA0683-65-67 10:37:001.3[facility] ArdljddORJDZVPOFQ9091-31-99 10:37:000.6 [facility] EjjpngtGHBMFCMFWW6206-07-57 10:37:000.1[facility]annHEMATOLOGY 2020-08-29 10:37:001+ *ABN*(08/29/20 5:37 AM)[facility] IbczrlfZMTMVIWOIM0162-61-28 10:37:00Not Detected (08/29/20 5:37 AM)[facility] 2020-08-27 23:14:39PROCEDURE: NM GASTRIC EMPTYING [...] rate, with complete emptying by [address] [facility]-[id number] Interface, Radiology Results 08/27/2020 6:17 PM CDT [...] rate, with complete emptying by [address] [facility]-[id number] HospitalMiscellaneous referral test 2020-05-09 21:24:58 Test Item Value Reference Range Interpretation Comments Misc test HIV-1 RNA QUAL PCR name (test code = 2566) Misc test see note Human Immunodef iciency result (test Virus 1 (HIV-1) by code = 1730) Qualitative Lay Out Worker-M ediated Amplification ( TMA) [facility] test code 9557667 HIV-1 by Qualit ative TMA See Note SOURCE/SPECIMEN PLASMA HIV-1 RNA, QUAL ITATIVE TMA HIV-1 RNA, QL TMA T MUSEUM HOST/HOSTESS Test Not Performed. Initial testing necessi tated a repeat, but the re was insufficient sa mple to perform repeat. SAMPLE LEFT FOR REPEAT IS 50 uL. NEED 1000 u L TO RUN REPEAT. This te st was performed using the APTIMA(R) HIV-R NA Qualitative Ass ay (Gen-Probe). ======== ======== Te st performed by:[employer] [place] [address] KYLE (test HIVQL - HIV-1 RNA, code = KYLE) Qualitative TMA (FROZEN)[facility] Test Code: 6012342Ssfaik: plasma [facility] HospitalUs duplex venous upper grykablig0897-48-80 04:57:00 Vascular Ultrasound Laboratory Upper Extremity Venous Report [address] [place] [address] Pat.Name: LIO WATTS Pat.ID: [id number] St.Date: 04/30/2020 Refer.MD: ELISEO ARCE MD Exam Time: 5:04:00 PM Study Type:UE Venous Age: 9 1955,65Y Sex: FEMALE Sonogrphr: IBIS Espinosa, SANKET Pat. Stat.:Inpatient Room: [place] [address] 2020 Tape Vol: EDGAR, CPT - 4: 25389 Echo Event ID:[id number] Order ID: [id number] Reason for Study:Arm swelling or pain, DVT [...] veins.*Preliminary result reported to ASHLEY Santos @ 4696 on 04/30/20.PHYSICIAN INTERPRETATION Venous examination of the both upper extremities and neck demonstratedno evidence of deep venous thrombosis. Total superficial vein thrombosis of the right basilic vein. FINDINGS: Signed 04/30/2020 10:57 PMZsolt Marianna MD, RPVIInterface, Radiology Results In - 04/30/2020 10:58 PM CST Vascular Ultrasound Laboratory Upper Extremity Venous Report [address] [place] [address] Pat.Name: LIO WATTS Marta.ID: [id number] .Date: 04/30/2020 Refer.MD: ELISEO ARCE MD Exam Time: 5:04:00 PM Study Type:UE Venous Age: 9 1955,65Y Sex: FEMALE Sonogrphr: IBIS Espinosa, SANKET Pat. Stat.:Inpatient Room: [place] [address] 2020 Tape Vol: EDGAR, CPT - 4: 83723 Echo Event ID:[id number] Order ID: [id number] Reason for Study:Arm swelling or pain, DVT [...] veins.*Preliminary result reported to ASHLEY Santos @ 9271 on 04/30/20.PHYSICIAN INTERPRETATION Venous examination of the both upper extremities and neck demonstratedno evidence of deep venous thrombosis. Total superficial vein thrombosis of the right basilic vein. FINDINGS: ------Signed 04/30/2020 10:57 PMFrancis Cabral MD, [facility] Chest 2 Yb4383-61-58 22:21:01EXAMINATION: XR CHEST 2 VW CLINICAL HISTORY: [...] active disease of the chest.[id number]_[id number] Unsuccessful Xhznkys1310-16-15 17:14:34ANicole zhang RN 04/30/2020 11:25 AMMidline Unsuccessful [...] place a PIV g.20 in lower arm .[facility] Area[facility] Abdomen 1 Vw Hzanqkak0126-44-41 16:20:14EXAMINATION: XR ABDOMEN 1 VW PORTABLE CLINICAL HISTORY: Abdominal pain post op COMPARISON: No prior IMPRESSION:1.Residual barium within the colon throughout. No small bowel obstruction noted. [facility]2U H6934VJNEg Interface, Radiology Results - 04/30/2020 10:23 AM CST EXAMINATION: XR ABDOMEN 1 VW PORTABLECLINICAL HISTORY: Abdominalpain post opCOMPARISON: No priorIMPRESSION:1.Residual barium within the colon throughout. No smallbowel obstruction noted.[facility]-[id number] JrxbqdmgKauosa2115-41-32 20:57:57Carlee Malloy MD 04/28/2020 2:59 PMAirwayPerformed by: Carlee Malloy MDAuthorized by: Carlee Malloy MD Location: ORUrgency: ElectiveDifficult Airway: No Anesthesiologist: Kvng Malloy MDResident/RIBBON WEAVER/AA: Allan Morocho DOPerformed by: resident/RIBBON WEAVER/AAPreoxygenated qrve038% O2: Yes C- spine Precautions Maintained Throughout: [...] No Number of Attempts at Approach: 1 [facility] AreaTransthoracic Echocardiogram Complete, (w Contrast, Strain and 3D if needed)2020-04-28 00:20:00 Echocardiography Report [address]Name: LIO WATTS Pat.ID: [id number] .Date: 04/27/2020 Refer.MD: ELISEO ARCE MD Exam Time: 2:21:00 PM Study Type:Routine Echo Height: 64in Weight: 213lb BSA: 2.01 m2 Age: 9 1955,65Y Sex: FEMALE BP: 128/89 HR: 102 bpm Sonogrphr: SANKET Perkins Pat. Stat.:Inpatient Room: [facility] Study Status:Final Echo Event ID:[id number] Order ID: [id number] Reason for Study:Atrial FibrillationHistory / Clinical:Hypertension Procedures: [...] estimate PA systolic pressure. MEASUREMENTS: 2DParasternal Long Dukedom Ao An 2.2 cm LVPWd 1 cm [...] 04/27/2020 6:21 PM CST Echocardiography Report [address] [place] [address] Pat.Name: LIO WATTS Pat.ID: [id number] .Date: 04/27/2020 Refer.MD: ELISEO ARCE MD Exam Time: 2:21:00 PM Study Type:Routine Echo Height: 64in Weight: 213lb BSA: 2.01 m2 Age: 9 1955,65Y Sex: FEMALE BP: 128/89 HR: 102 bpm Sonogrphr: SANKET Perkins Pat. Stat.:Inpatient Room: [facility] Study Status:Final Echo Event ID:[id number] Order ID: [id number] Reason for Study:Atrial FibrillationHistory / Clinical:Hypertension Procedures: [...] PA systolic pressure.- MEASUREMENTS: ---- 2DParasternal Long Dukedom Ao An 2.2 cm LVPWd 1 cm [...] LVOT CI 3.1 l/m/m2 Signed 04/27/2020 06:[address] [facility] MarioUT [facility] Esophagram Double Igebwtcb0722-70-52 18:07:12EXAMINATION: FL ESOPHAGRAM DOUBLE CONTRAST CLINICAL HISTORY: [...] spontaneous gastroesophageal reflux. [id number] Interface, Radiology Results [facility] - 04/25/2020 12:10 PM CST EXAMINATION: [...] hiatal hernia. There was mild spontaneous gastroesophageal reflux.[id number]_PS01[facility] Chest Wo Contrast Abdomen Wo Contrast Pelvis Wo Cdxagtrx4354-56-92 15:23:55EXAMINATION: CT CHEST WO CONTRAST ABDOMEN WO [...] chronic and incidental findings as detailed above. [facility]-[id number] Dictated and approved by radiology resi dent/fellow: [...] aorta.4.Additional chronic and incidental findings as detailed above.[facility]-[id number] and approved by radiology interventional physician/fellow: Jenna Valenzuela M.D.I, Medhat Flowers Jr., M.D., personally reviewed the images and resident's/fellow's findings and agree with the final report. [facility], GC, TV,PCR, IN [id number] 15:38:00 Test Item Value Reference Range Interpretation Comments FT (test code = CHTR) Not detected (qualifier Not Detected N value) FT (test code = Not detected (qualifier Not Detected N NGONO) value) FT (test code = TRVG) Not detected (qualifier Not Detected N value) URINALYSIS WITH HHXCEBDFUXJ2719-46-89 10:57:00 Test Item Value Reference Range Interpretation Comments Color (test code = UCOLR) Dk. Yellow Clarity (test code = UCLAR) Hazy Glucose (test code = UGLUC) NEGATIVE NEGATIVE N Bilirubin (test code = UBILI) NEGATIVE NEGATIVE N Ketones (test code = UKET) NEGATIVE NEGATIVE N Specific [place] (test code = 1.025 1.005-1.030 A USPGR) [...]
[2021-06-06] MEDS ORDERED: MECLIZINE HCL 12.5 MG TAB ONE ×2 (10:28→11:02)
[2021-06-06] MEDS ORDERED: MORPHINE 4 MG/ML SYR ONE ×2 (10:28→12:24)
[2021-06-06] MEDS ORDERED: ONDANSETRON 4 MG/2 ML VIAL ONE (10:28)
--- NOTE | 2021-06-06 10:55 | RAD REPORT ---
EXAM DESCRIPTION: RAD - Chest Single View - 06/06/2021 10:46 am CLINICAL HISTORY: SOB COMPARISON: Chest Single View dated 05/30/2021; Chest Single View dated 05/28/2021; Chest Single View da arpit 05/27/2021; Chest Single View dated 05/15/2021 FINDINGS: Lines: None. Lungs: Similar mild diffuse prominence of the pulmonary interstitium. Pleural: No significant pleural effusions or pneumothorax. Cardiac: Cardiomegaly. Bones: Shoulder arthroplasties. Other: IMPRESSION: Similar mild interstitial edema.
[2021-06-06 11:17] LABS: Absolute Lymphocytes (CBC) 1.2 K/uL (0.7-4.9); Hematocrit 36.6 % (36.0-45.0); Lymphocytes % 10.8 % (15.3-44.8); MPV 7.4 fL (7.6-11.3); RBC Red Blood Cell Count 4.65 M/uL (3.86-4.86)
[2021-06-06 11:19] LABS: Protime INR 1.13
[2021-06-06 11:37] LABS: SARS-COV-2 RT PCR NEGATIVE (NEGATIVE)
[2021-06-06 11:37] LABS: Bilirubin Direct 0.2 mg/dL (0-0.2); Bilirubin Total 0.5 mg/dL (0.2-1.0); Magnesium 2.5 mg/dL (1.8-2.4); Potassium 3.6 mmol/L (3.5-5.1); Protein, Total 7.3 g/dL (6.4-8.2); Troponin High Sensitivity 14.7 pg/mL (<58.9)
[2021-06-06] MEDS ORDERED: FUROSEMIDE 40 MG/4 ML VIAL ONE (12:24)
[2021-06-06] MEDS ORDERED: FAMOTIDINE 20 MG/2 ML VIAL IV ONE (12:24)
--- NOTE | 2021-06-06 13:15 | ER ---
Nurse's Notes [facility] Name: Marjan Fleming Age: 66 yrs Sex: Female : 1955 Arrival Date: 06/06/2021 Time: 09:38 Bed 8 Private MD: Lele Rahman H Diagnosis: Benign paroxysmal vertigo;COPD/ Chronic obstructive pulmonary disease, unspecified;Vomiting Presentation: 06/06 09:40 Chief complaint: Patient states: i woke up yesterday throwing up. i am nauseous. i am tw2 also sob. coughing as well. Coronavirus screen: chills, cough unrelated to allergies, nausea, shortness of breath, loss of taste or smell, vomiting. Client presents with at least one sign or symptom that may indicate coronavirus-19. Standard/surgical mask placed on the client. Provider contacted for isolation considerations. Ebola Screen: Patient denies travel to an Ebola-affected area in the 21 days before illness onset. Initial Sepsis Screen: Does the patient meet any 2 criteria? No. Patient's initial sepsis screen is negative. Does the patient have a suspected source of infection? No. Patient's initial sepsis screen is negative. Risk Assessment: Do you want to hurt yourself or someone else? Patient reports no desire to harm self or others. Onset of symptoms was June 06, 2021. 09:40 Method Of Arrival: Wheelchair tw2 09:44 Acuity: BLAYNE 3 tw2 Triage Assessment: 09:42 General: Appears in no apparent distress. unkempt, Behavior is calm, cooperative, tw2 appropriate for age. Pain: Complains of pain in abdomen. Respiratory: Reports shortness of breath at rest. GI: Reports lower abdominal pain, upper abdominal pain, nausea, vomiting. Historical: - Allergies: 09:42 Bactrim DS; tw2 09:42 butorphanol tartrate; tw2 09:42 Fentanyl; tw2 09:42 Reglan; tw2 09:42 Stadol; tw2 09:42 sulfamethoxazole (bulk); tw2 09:42 TRIMETHOPRIM; tw2 - PMHx: 09:42 Anxiety; Atrial Fib; Bipolar disorder; Chronic pain; COPD; esophageal varices; tw2 Hepatitis; HIV; Hypertension; Migraines; Panic Attacks; - PSHx: 09:42 Appendectomy; Bilateral shoulder repair; hernia repair; R wrist SX; Cholecystectomy; tw2 - Immunization history:: Client reports receiving the 2nd dose of the Covid vaccine. - Social history:: Smoking status: Patient denies any tobacco usage or history of. Screenin:43 Abuse screen: Denies threats or abuse. Nutritional screening: No deficits noted. tw2 Tuberculosis screening: No symptoms or risk factors identified. Fall Risk None identified. Assessment: 10:45 General: Appears obese, Behavior is calm, cooperative, appropriate for age. Pain: ww Complains of pain in abdomen. Neuro: Level of Consciousness is awake, alert, obeys commands, Oriented to person, place, time, situation, Speech is normal. Cardiovascular: Denies chest pain, Capillary refill < 3 seconds Rhythm is regular. Respiratory: Airway is patent Respiratory effort is even, unlabored, Respiratory pattern is regular, symmetrical. GI: Abdomen is obese, Abd is soft X 4 quads Reports lower abdominal pain, upper abdominal pain, nausea, vomiting, since yesterday. : No deficits noted. No signs and/or symptoms were reported regarding the genitourinary system. EENT: No deficits noted. No signs and/or symptoms were reported regarding the EENT system. Derm: Skin is intact, Skin is pink, warm \T\ dry. Vital Signs: 09:40 Pulse 76; Resp 20; Temp 98.6(TE); Pulse Ox 96% on R/A; Weight 97.52 kg (R); Height 5 tw2 ft. 4 in. (162.56 cm); 09:42 BP 171 / 91; tw2 09:42 Pain 10/10; tw2 10:45 BP 136 / 85; Pulse 75; Resp 25; Pulse Ox 95% on 2 lpm NC; ww 13:30 BP 147 / 98; Pulse 68; Resp 22 S; Pulse Ox 95% on R/A; jg9 09:40 Body Mass Index 36.90 (97.52 kg, 162.56 cm) tw2 Crystal Coma Score: 11:42 Eye Response: spontaneous(4). Verbal Response: oriented(5). Motor Response: obeys ww commands(6). Total: 15. ED Course: 09:38 Patient arrived in ED. mr 09:38 Lele Rahman DO is Private Physician. mr 09:42 Arm band placed on. tw2 09:44 [place] Raza, TIMBO [facility]. pm1 09:44 Justus Kolb MD is Attending Physician. pm1 09:44 Triage completed. tw2 09:44 Bed in low position. Call light in reach. claim specialist on. Pulse ox on. NIBP on. tw2 10:40 Tonya Dominguez, RN is Primary Nurse. ww 10:46 XRAY Chest (1 view) In Process Unspecified. EDMS 10:48 Initial lab(s) drawn, by pa, sent to lab. Inserted saline lock: 24 gauge in left dh3 forearm, using aseptic technique. Blood collected. 13:14 Lele Rahman DO is Referral Physician. pm1 13:47 No provider procedures requiring assistance completed. jg9 13:47 IV discontinued. jg9 Administered Medications: 10:50 Drug: morphine 4 mg Route: IVP; Site: left forearm; ww 11:05 Follow up: Response: No adverse reaction; RASS: Alert and Calm (0) jg9 10:55 Drug: Zofran (Ondansetron) 4 mg Route: IVP; Site: left forearm; ww 13:46 Follow up: Response: No adverse reaction jg9 10:55 Drug: Meclizine 50 mg Route: PO; ww 13:46 Follow up: Response: No adverse reaction jg9 12:28 Drug: morphine 4 mg Route: IVP; Site: left forearm; ww 13:45 Follow up: Response: No adverse reaction jg9 12:30 Drug: Pepcid (famotidine) 20 mg Route: IVP; Site: left forearm; ww 13:45 Follow up: Response: No adverse reaction jg9 12:36 Drug: Lasix (furosemide) 40 mg Route: IVP; Site: left forearm; ww 13:45 Follow up: Response: No adverse reaction jg9 Outcome: 13:15 Discharge ordered by . pm1 13:47 Discharged to home via wheelchair. jg9 13:47 Condition: stable 13:47 Discharge instructions given to patient, Instructed on discharge instructions, follow up and referral plans. Demonstrated understanding of instructions, follow-up care, medications, Prescriptions given X 3. 13:50 Patient left the ED. dh3 Signatures: Dispatcher [employer] EDTN Jessie Hill mr Raza, [place], MANAGER QUANTITATIVE MANAGER QUANTITATIVE pm1 Karen Tovar, RN RN tw2 Morenita Ash dh3 Karen Joseph, RN RN jg9 Tonya Dominguez, RN RN ww
--- NOTE | 2021-06-06 13:15 | EDPHYS ---
Physician Documentation [facility] Name: Marjan Fleming Age: 66 yrs Sex: Female : 1955 Arrival Date: 06/06/2021 Time: 09:38 Bed 8 Private MD: Lele Rahman H ED Physician Justus Kolb HPI: 06/06 10:07 This 66 yrs old Female presents to ER via Wheelchair with complaints of pm1 Vomiting/Diarrhea, Dizziness, Shortness Of Breath. 10:07 The patient presents to the emergency department with nausea, vomiting. Onset: The pm1 symptoms/episode began/occurred yesterday. Possible causes: unknown. The symptoms are aggravated by food , The symptoms are alleviated by nothing. Associated signs and symptoms: Pertinent positives: chest pain, shortness of breath, Pertinent negatives: diarrhea, fever. Severity of symptoms: in the emergency department the symptoms are worse. The patient has not recently seen a physician. Historical: - Allergies: 09:42 Bactrim DS; tw2 09:42 butorphanol tartrate; tw2 09:42 Fentanyl; tw2 09:42 Reglan; tw2 09:42 Stadol; tw2 09:42 sulfamethoxazole (bulk); tw2 09:42 TRIMETHOPRIM; tw2 - PMHx: 09:42 Anxiety; Atrial Fib; Bipolar disorder; Chronic pain; COPD; esophageal varices; tw2 Hepatitis; HIV; Hypertension; Migraines; Panic Attacks; - PSHx: 09:42 Appendectomy; Bilateral shoulder repair; hernia repair; R wrist SX; Cholecystectomy; tw2 - Immunization history:: Client reports receiving the 2nd dose of the Covid vaccine. - Social history:: Smoking status: Patient denies any tobacco usage or history of. ROS: 10:07 Constitutional: Negative for fever, chills, and weight loss. pm1 10:07 Back: Negative for injury and pain. 10:07 MS/Extremity: Negative for injury and deformity, Skin: Negative for injury, rash, and discoloration. 10:07 Cardiovascular: Positive for chest pain, Negative for palpitations. 10:07 Respiratory: Positive for shortness of breath. 10:07 Abdomen/GI: Positive for abdominal pain, nausea and vomiting, Negative for diarrhea. 10:07 Neuro: Positive for dizziness, Room spinning with turning head to her left side. 10:07 All other systems are negative. Exam: 10:07 Constitutional: This is a well developed, well nourished patient who is awake, alert, pm1 and in no acute distress. Head/Face: Normocephalic, atraumatic. 10:07 Back: No spinal tenderness. No costovertebral tenderness. Full range of motion. Skin: Warm, dry with normal turgor. Normal color with no rashes, no lesions, and no evidence of cellulitis. MS/ Extremity: Pulses equal, no cyanosis. Neurovascular intact. Full, normal range of motion. 10:07 Eyes: Exam is negative for acute changes, Periorbital structures: appear normal, Pupils: no acute changes, Extraocular movements: no acute changes, Sclera: no acute changes, icterus, is not appreciated. 10:07 ENT: Exam is negative for acute changes, Mouth: no acute changes, Lips: normal, moist, Oral mucosa: normal, pink and intact, moist. 10:07 Cardiovascular: Exam negative for acute changes, Rate: normal, Rhythm: regular, Pulses: no pulse deficits are appreciated, Heart sounds: normal, Edema: pedal edema, that is very mild. 10:07 Respiratory: Exam negative for acute changes, respiratory distress, shortness of breath, Breath sounds: are clear throughout. 10:07 Abdomen/GI: Exam negative for acute changes, Inspection: abdomen appears normal, Palpation: abdomen is soft and non-tender, in all quadrants. 10:07 Neuro: Exam negative for acute changes, Orientation: is normal, Mentation: is normal, Motor: is normal, Sensation: is normal. Vital Signs: 09:40 Pulse 76; Resp 20; Temp 98.6(TE); Pulse Ox 96% on R/A; Weight 97.52 kg (R); Height 5 tw2 ft. 4 in. (162.56 cm); 09:42 BP 171 / 91; tw2 09:42 Pain 10/10; tw2 10:45 BP 136 / 85; Pulse 75; Resp 25; Pulse Ox 95% on 2 lpm NC; ww 13:30 BP 147 / 98; Pulse 68; Resp 22 S; Pulse Ox 95% on R/A; jg9 09:40 Body Mass Index 36.90 (97.52 kg, 162.56 cm) tw2 [place] Coma Score: 11:42 Eye Response: spontaneous(4). Verbal Response: oriented(5). Motor Response: obeys ww commands(6). Total: 15. MDM: 09:51 Patient medically screened. pm1 13:13 Data reviewed: vital signs. Counseling: I had a detailed discussion with the patient pm1 and/or guardian regarding: the historical points, exam findings, and any diagnostic results supporting the discharge/admit diagnosis, lab results, radiology results, the need for outpatient follow up, to return to the emergency department if symptoms worsen or persist or if there are any questions or concerns that arise at home. 06/06 09:52 Order name: COVID-19/FLU A+B (Document "Date of Onset" if Symptomatic); Complete Time: pm1 11:42 06/06 10:07 Order name: Basic Metabolic Panel; Complete Time: 11:42 pm06/06 10:07 Order name: CBC with Diff; Complete Time: 11:20 pm06/06 10:07 Order name: LFT's; Complete Time: 11:42 pm06/06 10:07 Order name: Magnesium; Complete Time: 11:42 pm06/06 10:07 Order name: NT PRO-BNP; Complete Time: 11:42 pm06/06 10:07 Order name: PT-INR; Complete Time: 11:20 pm06/06 10:07 Order name: Troponin HS; Complete Time: 11:42 pm06/06 10:07 Order name: XRAY Chest (1 view); Complete Time: 11:02 pm06/06 10:07 Order name: EKG; Complete Time: 10:08 06/06 10:07 Order name: Cardiac monitoring; Complete Time: 11:26 pm06/06 10:07 Order name: EKG - Nurse/Tech; Complete Time: 11:26 pm06/06 10:07 Order name: IV Saline Lock; Complete Time: 10:52 pm06/06 10:07 Order name: Labs collected and sent; Complete Time: 10:52 pm06/06 10:07 Order name: O2 Per Protocol; Complete Time: 10:52 pm06/06 10:07 Order name: O2 Sat Monitoring; Complete Time: 10:52 pm1 Administered Medications: 10:50 Drug: morphine 4 mg Route: IVP; Site: left forearm; ww 11:05 Follow up: Response: No adverse reaction; RASS: Alert and Calm (0) jg9 10:55 Drug: Zofran (Ondansetron) 4 mg Route: IVP; Site: left forearm; ww 13:46 Follow up: Response: No adverse reaction jg9 10:55 Drug: Meclizine 50 mg Route: PO; ww 13:46 Follow up: Response: No adverse reaction jg9 12:28 Drug: morphine 4 mg Route: IVP; Site: left forearm; ww 13:45 Follow up: Response: No adverse reaction jg9 12:30 Drug: Pepcid (famotidine) 20 mg Route: IVP; Site: left forearm; ww 13:45 Follow up: Response: No adverse reaction jg9 12:36 Drug: Lasix (furosemide) 40 mg Route: IVP; Site: left forearm; ww 13:45 Follow up: Response: No adverse reaction jg9 Disposition Summary: 06/06/21 13:15 Discharge Ordered Location: Home pm1 Problem: new pm1 Symptoms: have improved pm1 Condition: Stable pm1 Diagnosis - Benign paroxysmal vertigo pm1 - COPD/ Chronic obstructive pulmonary disease, unspecified pm1 - Vomiting pm1 Followup: pm1 - With: Emergency Department - When: As needed - Reason: Worsening of condition Followup: pm1 - With: Lele Rahman DO - When: 2 - 3 days - Reason: Recheck today's complaints, Continuance of care, Re-evaluation by your physician Discharge Instructions: - Discharge Summary Sheet pm1 - Benign Positional Vertigo pm1 - Chronic Obstructive Pulmonary Disease pm1 Forms: - Medication Reconciliation Form pm1 - Thank You Letter pm1 - Antibiotic Education pm1 - Prescription Opioid Use pm1 Prescriptions: - ondansetron 4 mg Oral tablet,disintegrating - place 1 tablet by TRANSLINGUAL route every 8 hours As needed; 15 tablet; pm1 Refills: 0, Product Selection Permitted - Meclizine 25 mg Oral Tablet - take 1 tablet by ORAL route every 8 hours As needed; 30 tablet; Refills: 0, pm1 Product Selection Permitted - Medrol (Niall) 4 mg Oral Tablets, Dose Pack - take 1 tablet by ORAL route as directed - follow package instructions; 1 pm1 packet; Refills: 0, Product Selection Permitted Addendum: 06/07/2021 18:41 Co-signature as Attending Physician, Justus Kolb MD I agree with the assessment and c restrepo plan of care. Signatures: Dispatcher [employer] EDMS Justus Kolb MD MD cha Marinas, Patrick, LOAN TELLER LOAN TELLER pm1 Karen Tovar RN RN tw2 Tonya Dominguez RN RN ww Karen Joseph RN jg9 Corrections: (The following items were deleted from the chart) 06/06 10:17 10:07 Associated signs and symptoms: Pertinent positives: chest pain, shortness of pm1 breath, Pertinent negatives: abdominal pain, pm1 12:23 12:21 FERRITIN+C.LAB.BRZ ordered. EDMS EDMS 12:23 12:21 C-REACTIVE PROTEIN+C.LAB.BRZ ordered. EDMS EDMS
[2021-06-06 14:01] VITALS: TEMP 98.6
[2021-06-06 14:30] VITALS: O2SAT 95
[2021-06-06 14:32] VITALS: BP 147/98
== END 2021-06-06 13:50 | disposition home or self-care (01) ==
LOC: ER 09:34
DX: J44.9 Chronic obstructive pulmonary disease, unspecified (principal); H81.10 Benign paroxysmal vertigo, unspecified ear; R11.10 Vomiting, unspecified; Z88.1 Allergy status to other antibiotic agents; Z88.2 Allergy status to sulfonamides; Z88.8 Allergy status to other drugs, medicaments and biological substances; B20 Human immunodeficiency virus [HIV] disease; Z20.822 Contact with and (suspected) exposure to COVID-19
CPT/HCPCS: 0240U; 36415; 71045; 80048; 80076; 83735; 83880; 84484; 85025; 85610; 96374; 96375; 99284; J1940; J2405; J8597

== ENCOUNTER 2021-06-07 18:41 | Inpatient (IN) | payer OTHER ==
--- OUTSIDE RECORDS SUMMARY | 2021-06-07 18:53 | XMS REPORT | Continuity of Care Document ---
:1955 Author Organization [facility] t Address [address] [place] [address] Care Team Providers Name Role Phone Francisco Rahman Primary Care Physician Ashely Attending Clinician Unavailable HEMATPOUR Attending Clinician Unavailable RONALD Attending Clinician Unavailable Ronald DHILLON Attending Clinician Prabhu SANCHEZ Attending Clinician Unavailable Luisana Maharaj NP Attending Clinician Yazmin JENKINS Attending Clinician [facility] Attending Clinician Unavailable Marika Bal Attending [...] Date Expiration Date S gabino [facility] COMMUNITY PLAN [id number] 2012 [employer] 00:00:00 [facility] DUAL [id number] 2020 COMP HMO D SNP 00:00:00 MEDICAID OF [place] [id number] 2020 00:00:00 Problems Condition Condition Condition Status Onset Resolution Last Treating Co mments Source Name Details Category Date Date Treatment Clinician Date Gastropare Gastropare Disease Active Overview : Methodi sis sis 4-[address] 00:00: [facility] note l might be different from the original. Added automatic ally from request for surgery [id number] Dysphagia Dysphagia Disease Active Overview: Methodi 4-[address] 00:00: g of this [facility]osp[facility] 00 note l might be different from the original. Added automatic ally from request for surgery [id number] CCL / EPS Diagnosis Active 2020-10-15 Memoria PVI 3-30 17:07:00 l ABLATION CCL / 00:00: Marty W/ CARTO / EPS PVI 00 GA / T ABLATION W/ CARTO / GA / T Active 08/19/2020 [facility] Food Food Disease Active 2019-05 Methodi [...] 11-18 it y of ciency ciency 00:00: [place] virus virus 00 Medical (HIV) (HIV) Branch [...] matt NOL INGREDI 11-25 ity of 00:00: [place] [facility] Butorpha Drug Active Unknown - [...] father Diabetes [facility] Natural father Other - see comments [facility] Natural father Coronary Heart [facility] Disease [facility] Natural father Hypertension [facility] Natural father Kid[facility] Natural mother Cancer [facility] Social History Social Habit Start Date Stop Date Quantity [facility] Alcohol Comment History [facility] Health Alcohol Std Drinks History [facility] Alcohol Binge Exposure to Not sure [facility] SARS-CoV-2 (event) History of tobacco Smoker [facility] Alcohol intake 2021-02-23 2021-02-23 Ex-drinker [facility] 00:00:00 00:00:00 (finding) Cigarettes smoked 2020-12-08 2020-12-[address] current (pack per 00:00:00 00:00:00 Hospita l day) - Reported Cigarette 2020-12-08 2020-12-08 [facility] pack-years 00:00:00 00:00:00 Hospital Tobacco use and 2020-10-31 2020-10-31 Smokeless tobacco [facility] exposure 00:00:00 00:00:00 non-user History SDOH 2020-10-31 2020-10-31 1 [facility] Alcohol Frequency 00:00:00 00:00:00 Tobacco Comment 2015-02-14 2015-02-14 Smokes approx 1-2 Un iversity of 00:00:00 00:00:00 cigarettes per [place] [facility] day when she Branch smokes Sex Assigned At [birth year] [facility] 00:00:00 00:00:00 Sex Ass[birth year] At [birth year] [facility] 00[facility] 00:00:00 [place] [facility] Smoking Status Start Date Stop Date Source Ex-smoker 2020-10-31 00:00:00 2020-10-31 00:00:00 [facility] Unknown if ever smoked [facility] Medications Ordered Filled Start Stop Current Ordering Indication Dosage Frequency Signature Comments Components Source Medication Medication Date Date Medication? Clinician (SIG) Name Name raltegravir Yes [id number] 400mg Take 1 Univers (ISENTRESS) 1-12 tablet by ity of 400 mg 00:00: mouth 2 [place] tablet 00 (two) Medical times Branch daily. LORazepam 2021- Yes [id number] 1mg Take 1 Univers mg tablet 05-25-25 tablet by ity of 00:00: 05:59 mouth 3 [place] 00 :00 (three) Medical times Branch daily as needed (anxiety) for up to 21 days. LORazepam 2021- Yes [id number] 1mg Take 1 [facility] mg tablet 05-25-25 tablet by ity of 00:00: 05:59 mouth 3 [place] 00 :00 (three) Medical times Branch daily as needed (anxiety) for up to 21 days. SERTraline 2020-05 Yes [id number] 200mg Take 2 Univers 100 mg 2-21 tablets by ity of tablet 00:00: mouth [place] 00 daily. Medical Branch busPIRone 2020-05 Yes [id number] 30mg Take 1 Un matt 30 mg 2-21 tablet by ity of tablet 00:00: mouth 2 [place] 00 (two) Medical times Branch daily. buPROPion 2020-05 Yes [id number] 150mg Take 1 U nivers XL 2-21 tablet by ity of (WELLBUTRIN 00:00: mouth [place] XL) 150 mg 00 daily. Medical 24 hr Branch tablet SERTraline 2020-05 Yes [id number] 200mg Take 2 Univers 100 mg 2-21 tablets by ity of tablet 00:00: mouth [place] 00 daily. Medical Branch busPIRone 2020-05 Yes [id number] 30mg Take 1 Un matt 30 mg 2-21 tablet by ity of tablet 00:00: mouth 2 [place] 00 (two) Medical times Branch daily. buPROPion 2020-05 Yes [id number] 150mg Take 1 U nivers XL 2-21 tablet by ity of (WELLBUTRIN 00:00: mouth [place] XL) 150 mg 00 daily. Medical 24 hr Branch tablet LORazepam 2 2020-05- No [id number] 2mg Take 1 Univers mg tablet 06-28 tablet by ity of 00:00: 00:00 mouth 2 [place] 00 :00 (two) Medical times Branch daily as needed (anxiety). raltegravir Yes [id number] 400mg Take 1 Univers (ISENTRESS) 9-24 tablet by ity of 400 mg 00:00: mouth 2 [place] tablet 00 (two) Medical times Branch daily. raltegravir 2021- No [id number] 400mg Take 1 Univers (ISENTRESS) 9-24 -12 tablet by it y of 400 mg 00:00: 00:00 mouth 2 [place] tablet 00 :00 (two) Medical times Branch daily. buPROPion 2020- No [id number] 150mg Take 1 Univers XL 01-28 12-21 tablet by ity of (WELLBUTRIN 00:00: 00:[place] XL[place] 150 mg 00 :00 daily. Medical 24 hr Branch tablet SERTraline 2020- No [id number] 200mg Take 2 Univers 100 mg 01-28 12-21 tablets by ity of tablet 00:00: 00:00 mouth [place] 00 :00 daily. Medical Branch busPIRone 2020- No [id number] 30mg Take 1 U nivers 30 mg 8-30 12- tablet by ity of tablet 00:00: 00:00 mouth 2 [place] 00 :00 (two) Medical times Branch daily. metoprolol 2021- No [id number] Take 1 [facility] tartrate 12-15- tablet Health (Lopressor) 00:00: 05:59 (100 mg 100 MG 00 :00 total) by tablet mouth 2 (two) times a day AND 0.5 tablets (50 mg total) every night. metoprolol 0 2- No [id number] Take 1 [facility] tartrate 7- 01-23 tablet Health (Lopressor) 00:00: 05:59 (100 [...] 15:51: daily. Hospita tablet 25 l LORAZepam 2020-0 Yes 2mg QD Take 2 mg Met [...] (affected area in groin) hydrALAZINE Yes 50mg Q.[id number] Take 50 mg Methodi (APRESOLINE 7-[id number] mouth [address] ) 50 MG [...] Hospita tablet 25 daily. l nystatin-tr Yes [id number] Apply to [facility] 11-25 area(s) 3 ity of cream 00:00: (three) [place] 00 times Medical daily. Branch emtricitabi Yes [id number] Take one [facility] ne-tenofovi 11-25 po daily ity of r alafen 00:00: [place] (DESCOVY) 00 Medical tablet Branch nystatin-tr Yes [id number] Apply to [facility] ERone 11-25 area(s) 3 ity of cream 00:00: (three) [place] 00 times Medical daily. Branch emtricitabi Yes [id number] Take one [facility] raman 11-25 po daily ity of r alafen 00:00: [place] (DESCOVY) 00 Medical tablet Branch budesonide- 202- No 1{puff} QD Inhale 1 Methodi formoteroL 11-[address] (SYMBICORT) 19:37: 00:00 morning. H ospita 160-4.5 02 :00 l mcg/actuati on inhaler hydrALAZINE Yes [id number] 50mg Q.[id number] Take 1 [facility] (Apresoline - [id number] tablet (50 Health ) 50 MG 00:00: 3D mg total) tablet 00 by mouth 3 (three) times a day. hydrALAZINE 2020- No [id number] 50mg Q.[id number] Take 1 [facility] (Apresoline 6-03 31-10 [id number] tablet (50 Health ) 50 MG 00:00: 04:59 3D mg total) tablet 00 :00 by mouth 3 (three) times a day. hydrALAZINE 2020- No [id number] 50mg Q.[id number] Take 1 [facility] (Apresoline 6-03 31-10 [id number] tablet (50 Health ) 50 MG 00:00: 04:59 3D mg total) tablet 00 :00 by mouth 3 (three) times a day. hydrALAZINE 2020- No [id number] 50mg Q.[id number] Take 1 [facility] (Apresoline 6-03 31-10 [id number] tablet (50 Health ) 50 MG 00:00: 04:59 3D mg total) tablet 00 :00 by mouth 3 (three) times a day. hydrALAZINE 2020- No [id number] 50mg Q.[id number] Take 1 [facility] (Apresoline 6-03 31-10 [id number] tablet (50 Health ) 50 MG 00:00: [...] % 00:00: ointment 00 nystatin 2020- No [id number] Q.25D Take 5 mL Methodi (MYCOSTATIN 10-06 [...] 5-14 Health MG tablet 00:00: 00 amLODIPine 1-0 Yes 10mg QD Take 10 mg U T (Norvasc) 5-14 by mouth 1 Heal th 10 MG 00:00: (one) time tablet 00 each day. clobetasol 1-0 Yes 1{appli Q12H Apply 1 U T (Temovate) 5-14 cation} applicatio Health 0.05 % 00:00: n ointment 00 topically every 12 (twelve) hours. LORazepam 2020-0 Yes [facility] (Ativan) 2 5-14 Health MG tablet 00:00: 00 clobetasol 1-0 Yes 1{appli Q12H Apply 1 U T [...] 00 topically every 12 (twelve) hours. LORazepam 1-0 Yes [facility] (Ativan) 2 5-14 Health MG tablet 00:00: 00 amLODIPine 2021-0 Yes 10mg QD Take 10 mg U T (Norvasc) 5-14 by mouth 1 Heal th 10 MG 00:00: (one) time tablet 00 each day. clobetasol 1-0 Yes 1{appli Q12H Apply 1 U T [...] 40 MG EC 00 tablet pantoprazol 0 2020- No 40mg Q.5D Take 2 Met [...] ia 4-10 (Same as: l 14:00: Cordarone) [place] Amlodipine No Notes: Memor ia 4-10 (Same as: l 14:00: Norvasc) [place] emtricitabi No Notes: Caesar lisa ne 200 MG / 4-10 (Same as: l tenofovir 14:00: Descovy) Herm ariel alafenamide 00 Non-formul 25 MG Oral nancy Tablet [Descovy] Sertraline No Notes: Memor ia 4-10 (Same as: l 14:00: Zoloft) [place] 00 Sertraline No Notes: Memor ia 4-10 (Same as: l 14:00: Zoloft) [place] 00 pantoprazol No Notes: Caesar lisa e 4-10 Tablet l 14:00: should not [place] 00 be chewed or crushed. (Same as: [...] ia 4-10 (Same as: l 14:00: Cordarone) [place] Amlodipine No Notes: Memor ia 4-10 (Same as: l 14:00: Norvasc) Marty emtricitabi No Notes: Caesar lisa ne 200 MG / 4-10 (Same as: l tenofovir 14:00: Descovy) Herm ariel alafenamide 00 Non-formul 25 MG Oral nancy Tablet [Descovy] Sertraline No Notes: Memor ia 4-10 (Same as: l 14:00: Zoloft) [place] pantoprazol No Notes: Caesar lisa e 4-10 Tablet l 14:00: should not [place] 00 be chewed or crushed. (Same as: Protonix) Amiodarone No Notes: Memor ia 4-10 (Same as: l 14:00: Cordarone) Marty Amlodipine No Notes: Memor ia 4-10 (Same as: l 14:00: Norvasc) [place] emtricitabi No Notes: Caesar lisa ne 200 [...] ia 4-10 (Same as: l 14:00: Zoloft) [place] 00 pantoprazol No Notes: Caesar lisa e 4-10 Tablet l 14:00: should not [place] 00 be chewed or crushed. (Same as: Protonix) Amiodarone No Notes: Memor ia 4-10 (Same as: l 14:00: Cordarone) [place] 00 Amlodipine No Notes: Memor ia 4-10 [...] ia 4-10 (Same as: l 14:00: Cordarone) [place] 00 Sucralfate No Notes: May M emoria 4-10 interfere l 02:00: w/enteral [place] feeds - Take 1 hr before or [...] Memoria 4-10 Same as: l 02:00: Eliquis [place] 00 Hydralazine No Notes: Caesar lisa Hydrochlori [...] Memoria 4-10 Same as: l 02:00: Eliquis [place] 00 Hydralazine No Notes: Caesar lisa Hydrochlori 4-10 (Same as: l de 50 MG 02:00: Apresoline Her mitchell Oral Tablet 00 ) May interfere w/enteral feedings Take With Food Sucralfate No Notes: May M emoria 4-10 interfere l 02:00: w/enteral [place] 00 feeds - Take 1 hr before or 2 hr after antacids, dairy pdt, meals & minerals - On empty stomach. For patients unable to swallow tablet, dissolve in 10mL - 30mL of water or juice and stir before giving. (Same As: Carafate) Saline No Notes: Memoria Flush 0.9% 4-10 (Same as: l 02:00: BD [place] 00 Posiflush) Eliquis No Notes: Memoria 4-10 Same as: l 02:00: Eliquis [place] Hydralazine No Notes: Caesar lisa Hydrochlori 4-10 (Same as: l de 50 MG 02:00: Apresoline Her mitchell Oral Tablet 00 ) May interfere w/enteral feedings Take With Food Sucralfate No Notes: May M emoria 4-10 interfere l 02:00: w/enteral [place] 00 feeds - Take 1 hr before or 2 hr after antacids, dairy pdt, meals & minerals - On empty stomach. For patients unable to swallow tablet, dissolve in 10mL - 30mL of water or juice and stir before giving. (Same As: Carafate) Saline No Notes: Memoria Flush 0.9% 4-10 (Same as: l 02:00: BD [place] 00 Posiflush) Eliquis No Notes: Memoria 4-10 Same as: l 02:00: Eliquis Marty Hydralazine No Notes: Caesar lisa Hydrochlori 4-10 (Same as: l de 50 MG 02:00: Apresoline Her mitchell Oral Tablet 00 ) May interfere w/enteral feedings Take With Food Sucralfate No Notes: May M emoria 4-10 interfere l 02:00: w/enteral [place] 00 feeds - Take 1 hr before [...] Memoria 4-10 Same as: l 02:00: Eliquis [place] Hydralazine No Notes: Caesar lisa Hydrochlori 4-10 (Same as: l de 50 MG 02:00: Apresoline Her mitchell Oral Tablet 00 ) May interfere w/enteral feedings Take With Food Sucralfate No Notes: May M emoria 4-10 interfere l 02:00: w/enteral [place] 00 feeds - Take 1 hr before [...] not exceed l #3 00:12: 4gm/day of [place] acetaminop hen. (Same as: Tylenol with Codeine # 3) acetaminoph No Notes: Do M emoria en-codeine 4-10 not exceed l #3 00:12: 4gm/day of [place] acetaminop hen. (Same as: Tylenol with Codeine [...] not exceed l #3 00:12: 4gm/day of [place] 00 acetaminop hen. (Same as: Tylenol with Codeine # 3) acetaminoph No Notes: Do M emoria en-codeine 4-10 not exceed l #3 00:12: 4gm/day of Marty 00 acetaminop hen. (Same as: Tylenol with Codeine # 3) Buspirone No Notes: Memori a 08-29 (Same As: l 22:00: BuSpar) Lisinopril No 40 mg, 1 Mem oria - tab, l 22:00: Route: PO, Marty Drug [...] 2021-0 No 40 mg, 1 Mem oria - tab, l 22:00: Route: PO, Drug [...] oria 4-09 tab, l 22:00: Route: PO, [place] Drug form: TAB, BID, Dosing Weight 97.273, [...] tartrate 4-09 tab, l 22:00: Route: PO, [place] 00 Drug form: TAB, BID, Dosing Weight [...] oria 4-09 tab, l 22:00: Route: PO, [place] 00 Drug form: TAB, BID, Dosing Weight [...] 0 Buspirone 2021-0 No Notes: Memori a - (Same As: l 22:00: BuSpar) Lisinopril 1-0 No 40 mg, 1 Mem oria 4-09 tab, l 22:00: Route: PO, [place] 00 Drug form: TAB, BID, Dosing Weight [...] Notes: Memoria 4-09 (Same l 17:07: as:MORPhin [place] 00 e Sulfate) Morphine No Notes: Memoria 4-09 (Same l 17:07: as:MORPhin [place] 00 e Sulfate) buPROPion No 150 mg, [...] Marty 00 Stop date: 08/29/20 10:40:00 CDT pantoprazol 2021-0 Yes 40 mg = 1 M emoria e 40 mg 4-09 tab, PO, l oral 15:27: Daily, # Marty enteric 00 30 tab, 0 coated Refill(s), tablet Pharmacy: [facility] 149, 162.56, cm, 08/29/20 5:30:00 CDT, Height, 97.273, kg, 08/29/20 5:30:00 CDT, Weight pantoprazol 2021-0 Yes 40 mg = 1 M emoria e 40 mg 4-09 tab, PO, l oral 15:27: Daily, # Marty enteric 00 30 tab, 0 coated Refill(s), tablet Pharmacy: [facility] 149, 162.56, cm, 08/29/20 5:30:00 CDT, Height, 97.273, kg, 08/29/20 5:30:00 CDT, Weight pantoprazol 2021-0 Yes 40 mg = 1 M emoria e 40 mg 4-09 tab, PO, l oral 15:27: Daily, # Marty enteric 00 30 tab, 0 coated Refill(s), tablet Pharmacy: [facility] 149, 162.56, cm, 08/29/20 5:30:00 CDT, Height, 97.273, kg, 08/29/20 5:30:00 CDT, Weight pantoprazol 2021-0 Yes 40 mg = 1 M emoria e 40 mg 4-09 tab, PO, l oral 15:27: Daily, # [place] enteric 00 30 tab, 0 coated Refill(s), tablet Pharmacy: [facility] 149, 162.56, cm, 08/29/20 5:30:00 CDT, Height, 97.273, kg, 08/29/20 5:30:00 CDT, Weight pantoprazol 2021-0 Yes 40 mg = 1 M emoria e 40 mg 4-09 tab, PO, l oral 15:27: Daily, # Marty enteric 00 30 tab, 0 coated Refill(s), tablet Pharmacy: [facility] 149, 162.56, cm, 08/29/20 5:30:00 CDT, Height, 97.273, kg, 08/29/20 5:30:00 CDT, Weight pantoprazol 1-0 Yes 40 mg = 1 M emoria e 40 mg 4-09 tab, PO, l oral 15:27: Daily, # Marty enteric 00 30 tab, 0 coated Refill(s), tablet Pharmacy: [place] [address], 162.56, cm, 08/29/20 5:30:00 CDT, Height, 97.273, kg, 08/29/20 5:30:00 CDT, Weight pantoprazol 2020-0 Yes 40 mg = 1 M emoria e 40 mg 4-09 tab, PO, l oral 15:27: Daily, # [place] enteric 00 30 tab, 0 coated Refill(s), tablet Pharmacy: [place] [address], 162.56, cm, 08/29/20 5:30:00 CDT, Height, 97.273, [...] Skylar nn 00 tab, 0 Refill(s), Pharmacy: [place] [address], 162.56, cm, 08/29/20 5:30:00 CDT, Height, 97.273, kg, 08/29/20 5:30:00 CDT, Weight pantoprazol 1-0 No 40 mg = 1 M emoria e 40 mg 4-09 tab, PO, l oral 15:26: Daily, # [place] enteric 00 30 tab, 0 coated Refill(s) tablet sucralfate 1-0 Yes 1 gm = 1 Mem oria 1 g oral 4-09 tab, PO, l tablet 15:26: Q12H, # 28 Skylar nn 00 tab, 0 Refill(s), Pharmacy: [place] [address], 162.56, cm, 08/29/20 5:30:00 CDT, Height, 97.273, kg, 08/29/20 5:30:00 CDT, Weight pantoprazol 2020-0 No 40 mg = 1 M emoria e 40 mg 4-09 tab, PO, l oral 15:26: Daily, # [place] enteric 00 30 tab, 0 coated Refill(s) tablet sucralfate 2020-0 Yes 1 gm = 1 Mem oria 1 g oral 4-09 tab, PO, l tablet 15:26: Q12H, # 28 Skylar nn 00 tab, 0 Refill(s), Pharmacy: [place] [address], 162.56, cm, 08/29/20 5:30:00 CDT, Height, 97.273, [...] Skylar nn 00 tab, 0 Refill(s), Pharmacy: [place] [address], 162.56, cm, 08/29/20 5:30:00 CDT, Height, 97.273, kg, 08/29/20 5:30:00 CDT, Weight pantoprazol 2020-0 No 40 mg = 1 M emoria e 40 mg 4-09 tab, PO, l oral 15:26: Daily, # [place] enteric 00 30 tab, 0 coated Refill(s) tablet sucralfate 2020-0 Yes 1 gm = 1 Mem oria 1 g oral 4-09 tab, PO, l tablet 15:26: Q12H, # 28 Skylar nn 00 tab, 0 Refill(s), Pharmacy: [facility] 149, 162.56, cm, 08/29/20 [...] Skylar nn 00 tab, 0 Refill(s), Pharmacy: [facility] 149, 162.56, cm, 08/29/20 5:30:00 CDT, Height, 97.273, kg, 08/29/20 5:30:00 CDT, Weight pantoprazol No 40 mg = 1 M emoria e 40 mg 4-09 tab, PO, l oral 15:26: Daily, # [place] enteric 00 30 tab, 0 coated Refill(s) tablet sucralfate Yes 1 gm = 1 Mem oria 1 g oral 4-09 tab, PO, l tablet 15:26: Q12H, # 28 Skylar nn 00 tab, 0 Refill(s), Pharmacy: [facility] 149, 162.56, cm, 08/29/20 5:30:00 CDT, Height, 97.273, kg, 08/29/20 5:30:00 CDT, Weight Saline No Notes: Memoria Flush 0.9% 4-09 (Same as: l 15:25: BD [place] 00 Posiflush) Lorazepam No Notes: Memori a 4-09 (Same as: l 15:25: Ativan) [place] 00 Saline No Notes: Memoria Flush 0.9% 4-09 (Same as: l 15:25: BD [place] 00 Posiflush) Lorazepam No Notes: Memori a 4-09 (Same as: l 15:25: Ativan) Marty 00 Saline No Notes: Memoria Flush 0.9% 4-09 (Same as: l 15:25: BD [place] 00 Posiflush) Saline No Notes: Memoria Flush 0.9% 4-09 (Same as: l 15:25: BD Marty 00 Posiflush) Lorazepam No Notes: Memori a 4-09 (Same as: l 15:25: Ativan) Lorazepam No Notes: Memori a 4-09 (Same as: l 15:25: Ativan) Saline No Notes: Memoria Flush 0.9% 4-09 (Same as: l 15:25: BD [place] Posiflush) Lorazepam No Notes: Memori a 4-09 (Same as: l 15:25: Ativan) Saline No Notes: Memoria Flush 0.9% 4-09 (Same as: l 15:25: BD [place] Posiflush) Lorazepam No Notes: Memori a 4-09 [...] (ANES) 08-29 Drug form: l 14:49: INJ, ONCE Stop date: 08/29/20 9:49:00 CDT heparin 2020-0 [...] 08-29 Route: PO, l 14:01: Drug form: [place] 00 TAB, ONCE, Dosing Weight 97.273, kg, [...] lisa 08-29 Route: l 14:01: IVP, PRN, [place] 00 Dosing Weight 97.273, kg, PRN Benzodiaze pine Reversal, Initial dose, Start date: 08/29/20 9:01:00 CDT, Duration: 30 day, Stop date: 09/28/20 9:00:00 CDT Naloxone 2020-0 No 0.4 mg, Memori a 08-29 Route: l 14:01: IVP, [place] 00 Q2MIN, Dosing Weight 97.273, kg, PRN Narcotic Reversal, Start date: 08/29/20 9:01:00 CDT, Duration: 8 doses or times, Stop date: Limited # of times Ondansetron 2020-0 No 4 mg, Memor ia 08-29 Route: l 14:01: IVP, ONCE, [place] 00 Dosing Weight 97.273, kg, PRN Nausea & Vomiting, Start date: 08/29/20 9:01:00 CDT Labetalol 1-0 No 10 mg, Memori a 08-29 Route: l 14:01: IVP, [place] 00 Q5Min, Dosing Weight 97.273, kg, PRN Elevated BP, Start date: 08/29/20 9:01:00 CDT, Duration: 5 doses or times, Stop date: Limited # of times Acetaminoph 1-0 No 1,000 mg, M emoria en 08-29 Route: PO, l 14:01: Drug form: [place] 00 TAB, ONCE, Dosing Weight 97.273, kg, [...] oria ne 08-29 Route: l 14:01: IVP, [place] 00 Q5Min, Dosing Weight 97.273, kg, PRN [...] Memori a 08-29 Route: l 14:01: IVP, [place] 00 Q2MIN, Dosing Weight 97.273, kg, PRN [...] lisa 08-29 Route: l 14:01: IVP, PRN, [place] 00 Dosing Weight 97.273, kg, PRN Benzodiaze [...] ia 08-29 Route: l 14:01: IVP, ONCE, [place] 00 Dosing Weight 97.273, kg, PRN Nausea [...] 08-29 Route: PO, l 14:01: Drug form: [place] 00 TAB, ONCE, Dosing Weight 97.273, kg, [...] oria ne 08-29 Route: l 14:01: IVP, [place] 00 Q5Min, Dosing Weight 97.273, kg, PRN [...] lisa 08-29 Route: l 14:01: IVP, PRN, [place] 00 Dosing Weight 97.273, kg, PRN Benzodiaze [...] 08-29 Route: PO, l 14:01: Drug form: [place] 00 TAB, ONCE, Dosing Weight 97.273, kg, [...] lisa 08-29 Route: l 14:01: IVP, PRN, [place] 00 Dosing Weight 97.273, kg, PRN Benzodiaze pine Reversal, Initial dose, Start date: 08/29/20 9:01:00 CDT, Duration: 30 day, Stop date: 09/28/20 9:00:00 CDT Naloxone 1-0 No 0.4 mg, Memori a 08-29 Route: l 14:01: IVP, [place] 00 Q2MIN, Dosing Weight 97.273, kg, PRN Narcotic Reversal, Start date: 08/29/20 9:01:00 CDT, Duration: 8 doses or times, Stop date: Limited # of times Ondansetron 1-0 No 4 mg, Memor ia 08-29 Route: l 14:01: IVP, ONCE, [place] 00 Dosing Weight 97.273, kg, PRN Nausea & Vomiting, Start date: 08/29/20 9:01:00 CDT Labetalol 1-0 No 10 mg, Memori a 08-29 Route: l 14:01: IVP, [place] 00 Q5Min, Dosing Weight 97.273, kg, PRN [...] ONCE, Stop date: 08/29/20 8:52:00 CDT lidocaine 2021-0 No Route: IV, Me moria (ANES) [...] Drug form: l 10 13:15: INJ, Start Clio microgram date: 08/29/20 8:15:00 CDT, Stop date: 08/29/20 9:15:00 CDT norepinephr 2020-0 No Route: IV, Memoria ine (ANES) 08-29 Drug form: l 10 13:15: INJ, Start Marty microgram date: 08/29/20 8:15:00 CDT, Stop date: 08/29/20 9:15:00 CDT norepinephr 2020-0 No Route: IV, Memoria ine (ANES) 08-29 Drug form: l 10 13:15: INJ, Start Clio microgram date: 08/29/20 8:15:00 CDT, Stop date: 08/29/20 9:15:00 CDT norepinephr 2020-0 No Route: IV, Memoria ine (ANES) 08-29 Drug form: l 10 13:15: INJ, Start Marty microgram date: 08/29/20 8:15:00 CDT, Stop date: 08/29/20 9:15:00 CDT norepinephr 2020-0 No Route: IV, Memoria ine (ANES) 08-29 Drug form: l 10 13:15: INJ, Start Clio microgram date: 08/29/20 8:15:00 CDT, Stop date: [...] 4-09 Total l 0.9% IV 12:30: Volume: Clio (ANES) 1000 00 1,000, mL Start date: 08/29/20 7:30:00 CDT, Stop date: 08/29/20 8:30:00 CDT Sodium 2021-0 No Route: IV, Memor ia Chloride 4-09 Total l 0.9% IV 12:30: Volume: Marty (ANES) 1000 00 1,000, mL Start date: 08/29/20 7:30:00 CDT, Stop date: 08/29/20 8:30:00 CDT Sodium 2021-0 No Route: IV, Memor ia Chloride 4-09 Total l 0.9% IV 12:30: Volume: Cl[place] (ANES) 1000 00 1,000, mL Start date: 08/29/20 7:30:00 CDT, Stop date: 08/29/20 8:30:00 CDT Sodium 2021-0 No Route: IV, Memor ia Chloride 4-09 Total l 0.9% IV 12:30: Volume: Marty (ANES) 1000 00 1,000, mL Start date: 08/29/20 7:30:00 CDT, Stop date: 08/29/20 8:30:00 CDT Sodium 2021-0 No Route: IV, Memor ia Chloride 4-09 Total l 0.9% IV 12:30: Volume: Clio (ANES) 1000 00 1,000, mL Start date: [...] PO, l Hydrochlori 11:42: Q24H, # 30 Clio de 150 MG 00 tab, 0 Extended Refill(s) Release Tablet 24 HR 0 Yes 150 mg = 1 Memori a Bupropion 4-09 tab, PO, l Hydrochlori 11:42: Q24H, # 30 Clio de 150 MG 00 tab, 0 Extended Refill(s) Release Tablet 24 HR 2021-0 Yes 150 mg = 1 Memori a Bupropion 4-09 tab, PO, l Hydrochlori 11:42: Q24H, # 30 Clio de 150 MG 00 tab, 0 Extended [...] 150 mg = 1 Memori a Bupropion 4- tab, PO, l Hydrochlori 11:42: Q24H, # 30 Marty de 150 MG 00 tab, 0 Extended Refill(s) Release Tablet 24 HR Yes 150 mg = 1 Memori a Bupropion - tab, PO, l Hydrochlori 11:42: Q24H, # 30 Marty de 150 MG 00 tab, 0 Extended Refill(s) Release Tablet apixaban 0 Yes 5 mg, PO, Me moria MG Oral 4 Q12H, tab, l Tablet 11:41: 0 Marty [Eliquis] 00 Refill(s), For Atrial Fibrilatio n apixaban 2020-0 Yes 5 mg, PO, Me moria MG Oral 4 Q12H, tab, l Tablet 11:41: 0 Clio [Eliquis] 00 Refill(s), For Atrial Fibrilatio n apixaban 2020-0 Yes 5 mg, PO, Me moria MG Oral 4- Q12H, tab, l Tablet 11:41: 0 Clio [Eliquis] 00 Refill(s), For Atrial Fibrilatio n apixaban 2020-0 Yes 5 mg, PO, Me moria MG Oral 4- Q12H, tab, l Tablet 11:41: 0 Clio [Eliquis] 00 Refill(s), For Atrial Fibrilatio n apixaban 2020-0 Yes 5 mg, PO, Me moria MG Oral 4-09 Q12H, tab, l Tablet 11:41: 0 [place] [Eliquis] 00 Refill(s), For Atrial Fibrilatio n [...] tab, PO, l tablet 11:38: Daily, # Clio 00 90 tab, 3 Refill(s) AMIODarone Yes 200 mg = 1 M emoria 200 mg oral 09 tab, PO, l tablet 11:38: Daily, # Clio 00 90 tab, 3 Refill(s) AMIODarone Yes 200 mg = 1 M emoria 200 mg oral 4-09 tab, PO, l tablet 11:38: Daily, # Marty 00 90 tab, 3 Refill(s) AMIODarone Yes 200 mg = 1 M emoria 200 mg oral -09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 Methodi 00:00:00 00:00:[address] 3.430.2.7 Hospit a .3.000299 l .8 2020-05-08 2020-05-08 Telephone [facility], 1.2.840.3 [id number] Methodi 00:00:00 00:00:[address] 3.430.2.7 Hospit a .3.325346 l .8 2020-05-07 2020-05-07 Telephone [facility], 1.2.840.7 [id number] Methodi 00:00:00 00:00:[address] 3.430.2.7 Hospit a .3.586364 l .8 2020-05-05 2020-05-05 Telephone [facility], 1.2.840.1 [id number] Methodi 00:00:00 00:00:[address] 3.430.2.7 Hospit a .3.160655 l .8 2020-04-25 2020-05-03 [facility], 1.2.840.1 [id number] 2099 288843 Methodi 17:33:00 13:39:00 Encounter Ray 03173.1.[address] 3.430.2.7 Hospit a .3.309009 l .8 2020-04-28 2020-04-28 Anesthesia Tomas Pinon 1.2.840.1 [id number] Methodi 13:38:00 19:40:00 Event Justine Catalan 81645.1.[address] 3.430.2.7 Hospit a .3.802331 l .8 2020-04-28 2020-04-28 [facility], 1.2.840.1 [id number] 94200 53144 Methodi 13:00:00 17:10:[address] 3.430.2.7 Hospit a .3.206240 l .8 2020-04-25 2020-04-25 [facility], 1.2.840.1 [id number] 2100 584301 Methodi 10:00:00 17:32:00 Encounter Ray [address]35.1.[address] 3.430.2.7 Hospit a .3.572497 l .8 2020-04-25 2020-04-25 [facility], 1.2.840.1 [id number] 24830 45201 Methodi 11:43:50 13:44:26 Visit Ray 58847.1.[address] 3.430.2.7 Hospit a .3.287897 l .8 2020-04-25 2020-04-25 Travel 1.2.840.1 1.2.595.662 0142 294359 Methodi 00:00:00 00:00:[address] 3.430.2.7 0.2.7.3.698 Ho spita .3.479301 084.8 l .8 2020-04-24 2020-04-24 Prep for [facility], 1.2.840.1 [id number] 2 [id number] Methodi 00:00:00 00:00:00 Surgery Sarai M. 94041.1.1 524 s t 3.430.2.7 Hospit a .3.213380 l .8 2020-04-22 2020-04-22 Telephone Meli, 1.2.840.1 [id number] 180 [id number] Methodi 00:00:00 00:00:[address] 3.430.2.7 Hospit a .3.072170 l .8 2020-04-22 2020-04-22 Travel 1.2.840.1 1.2.536.951 7874 867231 Methodi 00:00:00 00:00:[address] 3.430.2.7 0.2.7.3.698 Ho spita .3.798640 084.8 l .8 2020-04-21 2020-04-[address] [facility] 1.2.840.1 [id number] 2 [id number] Methodi 06:51:00 10:43:[address] 3.430.2.7 Hospit a .3.493379 l .8 2020-04-21 2020-04-21 Orders Meisenbach, 1.2.840.1 [id number] Methodi 00:00:00 00:00:00 Only Sarai Lieberman 13943.1.1 550 s t 3.430.2.7 Hospit a .3.724426 l .8 2020-04-16 2020-04-16 Telephone [facility], 1.2.840.1 [id number] Methodi 00:00:00 00:00:00 Sarai Lieberman 56000.1.1 673 s t 3.430.2.7 Hospit a .3.857049 l .8 2020-04-10 2020-04-10 [facility] 1.2.840.4 [id number] Methodi 00:00:00 00:00:[address] 3.430.2.7 Hospit a .3.396062 l .8 2020-04-07 2020-04-07 Telephone Nahum, 1.2.840.1 [id number] 2099 747422 Methodi 00:00:00 00:00:[address] 3.430.2.7 Hospit a .3.587852 l .8 2020-04-01 2020-04-01 Orders Provider, 1.2.840.1 [id number] 2099 534212 Methodi 00:00:00 00:00:00 Only Historical 70262.1.1 049 s t 3.430.2.7 Hospit a .3.282364 l .8 2020-03-31 2020-03-31 Travel 1.2.840.1 1.2.008.485 6830 754295 Methodi 00:00:00 00:00:[address] 3.430.2.7 0.2.7.3.698 Ho spita .3.426791 084.8 l .8 2020-03-27 2020-03-27 Telephone Paula, Min 1.2.840.1 [id number] Methodi 00:00:00 00:00:[address] 3.430.2.7 Hospit a .3.979434 l .8 Results Test Description Test Time [...] Rotavirus PCR (test code = Not Detected 4482672) Salmonella PCR (test code = 4783) Not [...] code = Not Detected 7124) [facility] Hr2322-71-09 19:17:40EXAMINATION: XR ABDOMEN 1 VW CLINICAL HISTORY: [...] Osseous structures are stable. Cholecystectomy clips are noted.[id number] Hospital[facility] [place] < 1 Kvsm3601-94-42 19:41:02EXAMINATION: OR FL < 1 HOUR C-arm fluoroscopy was requested in OR. Location: [facility] room 6 Procedure: EGD WITH BOTOX INJECTION [...] will be issued by the physician performingthe procedure.[id number] HospitalSurgical pathology request 2020-09-08 19:30:47 Test Item Value Reference Range Interpretation Comments Case number (test [id number] code = 8534314) Surgical pathology See link below for PDF report (test code = Lab Report 2255) Result status (test This is Supplemental code = [id number]) Report for [id number] [facility] 1 Vw Swogqmcf5356-37-79 23:06:58EXAMINATION: XR CHEST 1 VW PORTABLE HISTORY: [...] enlarged, similar to prior. Bilateral shoulder arthroplasties. [facility]-[id number] Interface, Radiology Results 09/06/2020 6:09PM CDT EXAMINATION: [...] silhouette is enlarged, similar to prior.Bilateral shoulder arthroplasties.[facility]-[id number] LrbbkuntPxyvmy8690-81-95 16:47:23Kirit Flood MD 09/05/2020 11:48 [address] Location: OR Performed by: anesthesia residentAnesthesiologist: Kirit Flood V., SAMRAuthorized by: Kirit Flood MD Urgency: ElectiveDifficult Airway: [...] RSI: Yes Number of Attempts at Approach: [place] [address] txdk1437-02-84 23:21:56 Test Item Value Reference Range Interpretation [...] abnormality, consider anterior ischemia-Abnormal ECG- [facility]COVID[facility] qualitative YWF0467-38-63 22:48:41 Test Item Value Reference Range Interpretation Comments Interpretation (test Negative results do code = 7823854) not preclude 2019-nCoV infection and should not be used as the sole basis for treatment or other patient management decisions. Negative results must be combined with clinical observations, patient history, and epidemiological information. COVID-19 qualitative Not-Detected Not-Detected RT-PCR result (test code = 46009-5) COVID-19 qualitative See link below for C ase Number: RT-PCR (test code = PDF Lab Report [id number]) [facility]2021-04-09 16:31:00 Test Item Value Reference Range Interpretation Comments POC Activated Clotting Time (test code 153 s = POC Activated Clotting Time) [facility]pp[facility]XKGS[facility]AQN1016-98-45 16:31:00 Test Item Value Reference Range Interpretation Comments POC Activated Clotting Time (test code 153 s = POC Activated Clotting Time) [place] 146561-04-09 16:31:00 Test Item Value Reference Range Interpretation Comments POC Activated Clotting Time (test code 153 s = POC Activated Clotting Time) [place] 146561-04-09 16:31:00 Test Item Value Reference Range Interpretation Comments POC Activated Clotting Time (test code 153 s = POC Activated Clotting Time) [facility] HospitalOjecnmiKEWJDVOEMN2156-34-32 16:31:00 Test Item Value Reference Range Interpretation Comments POC Activated Clotting Time (test code 153 s = POC Activated Clotting Time) [place] 146561-04-09 16:31:00 Test Item Value Reference Range Interpretation Comments POC Activated Clotting Time (test code 153 s = POC Activated Clotting Time) [facility] HospitalXnhavoeQJGZZHGKZW3607-01-22 16:31:00 Test Item Value Reference Range Interpretation Comments POC Activated Clotting Time (test code 153 s = POC Activated Clotting Time) [facility] HospitalJfpphypIUXEJYGGST5599-97-83 14:37:00 Test Item Value Reference Range Interpretation Comments POC Activated Clotting Time (test code 454 s = POC Activated Clotting Time) [facility] HospitalMiufsmtLODNYFLJDY8061-83-45 14:37:00 Test Item Value Reference Range Interpretation Comments POC Activated Clotting Time (test code 454 s = POC Activated Clotting Time) [facility] HospitalSwoueexEUMENNZMMK4297-40-25 14:37:00 Test Item Value Reference Range Interpretation Comments POC Activated Clotting Time (test code 454 s = POC Activated Clotting Time) [facility] HospitalVgzpdayWTFUSIXRWZ3117-53-70 14:37:00 Test Item Value Reference Range Interpretation Comments POC Activated Clotting Time (test code 454 s = POC Activated Clotting Time) [facility] HospitalCatlxeeZIHZOQUIZB3065-78-40 14:37:00 Test Item Value Reference Range Interpretation Comments POC Activated Clotting Time (test code 454 s = POC Activated Clotting Time) [facility] HospitalOngczqfXXASIEBIHB8923-97-09 14:37:00 Test Item Value Reference Range Interpretation Comments POC Activated Clotting Time (test code 454 s = POC Activated Clotting Time) [place] 146561-04-09 14:37:00 Test Item Value Reference Range Interpretation Comments POC Activated Clotting Time (test code 454 s = POC Activated Clotting Time) [facility] HospitalAjaqgcxTOYOJBLKCM1480-71-72 14:13:00 Test Item Value Reference Range Interpretation Comments POC Activated Clotting Time (test code 354 s = POC Activated Clotting Time) [facility] HospitalPxaehmiXMJMACJVFI1270-31-88 14:13:00 Test Item Value Reference Range Interpretation Comments POC Activated Clotting Time (test code 354 s = POC Activated Clotting Time) [facility] HospitalNmtefgsNDNNKAFPRJ6810-12-81 14:13:00 Test Item Value Reference Range Interpretation Comments POC Activated Clotting Time (test code 354 s = POC Activated Clotting Time) [facility] HospitalZuljsjaAELHRAUBOH5779-94-83 14:13:00 Test Item Value Reference Range Interpretation Comments POC Activated Clotting Time (test code 354 s = POC Activated Clotting Time) [facility] HospitalTjzgrmnTMWUZVSNHG2351-72-18 14:13:00 Test Item Value Reference Range Interpretation Comments POC Activated Clotting Time (test code 354 s = POC Activated Clotting Time) [facility] HospitalRttzbhtOIKZOMKQOW6714-60-81 14:13:00 Test Item Value Reference Range Interpretation Comments POC Activated Clotting Time (test code 354 s = POC Activated Clotting Time) [facility] HospitalYmjsovdHADFOSFMLY4186-18-31 14:13:00 Test Item Value Reference Range Interpretation Comments POC Activated Clotting Time (test code 354 s = POC Activated Clotting Time) [facility] LRAACIT7375-12-59 10:37:00Negative (08/29/20 5:37 AM) [facility] DXLMS2783-50-05 10:37:23581Whrhoqye HermannCHEM PANEL 2020-08-29 10:37:0028[facility] HermannCHEM FYENU1712-97-75 10:37:001.01[facility] HermannCHEM TDGGF1384-19-32 10:37:56470Fblxusmm HermannCHEM SJBIF2634-63-74 10:37:003.8[facility] HermannCHEM DQQOS3204-05-15 10:37:21453Aqackqfl HermannCHEM AHGDZ4909-58-37 10:37:0028[facility] HermannCHEM TWVCK2995-44-30 10:37:009.8 [facility] HermannCHEM UFSXY1854-67-36 10:37:0011.8[facility] HermannCHEM PANEL 2020-08-29 10:37:0059[facility] HermannCHEM JJTZX7865-94-06 10:37:002.9[facility] QswmazpLGVNMUKUSM5690-06-12 10:37:006.8[facility] UaagarqIGJUCDQMKT4353-58-34 10:37:004.47[facility] OdbmftbQHXIFXYQMX9604-00-80 10:37:0010.6[facility] Clio GIPCUQYGPG5179-95-17 10:37:0034.0[facility] ChuiydfSLIGUKABIX0681-46-36 10:37:00 76.1[facility] AuvtiqqRXRCZXHHII8349-87-04 10:37:00 Test Item Value Reference Range Interpretation Comments MCH (test code = MCH) 23.8 pg 27.0-31.0 [facility] HksyxarLYWPJOTHEF4843-43-55 10:37:0031.3[facility] HermannHEMATOLOGY 2020-08-29 10:37:0018.2[facility] JtletzgWFJEWBLKWG5356-96-00 10:37:48268Jkkzdimc OztynirLVPDDMSRQF2466-48-66 10:37:007.5[facility] GikzbljCCGXOFXEHV5781-29-31 10:37:00 Test Item Value Reference Range Interpretation Comments PT (test code = PT) 12.8 s 12.0-14.7 [facility] LphxysfGZGOHGHSWI3221-43-95 10:37:00 Test Item Value Reference Range Interpretation Comments INR (test code = INR) 0.97 1 0.85-1.17 [facility] VspcfscZQOBPGJRLQ3457-06-04 10:37:00 Test Item Value Reference Range Interpretation Comments PTT (test code = PTT) 25.0 s 22.9-35.8 [facility] VzhdqnfFSQLDEXHZV5493-75-94 10:37:0070.5[facility] HermannHEMATOLOGY 2020-08-29 10:37:0018.8[facility] PpclnfqLMISZJVMTA7756-04-75 10:37:009.5[facility] YzupqtqSZBSUJNILH4525-97-11 10:37:000.9[facility] BjsbzlmYPHALBYGAF5849-94-39 10:37:000.3[facility] EqyghddAYXKCYCPTO5998-91-77 10:37:004.8[facility] Marty CYWXNLRPYF8423-26-31 10:37:001.3[facility] YbahziwXATRXPPHTJ7083-76-32 10:37:000.6 [facility] SjfybnfBLUZXMSTOF4268-30-63 10:37:000.1[facility] HermannHEMATOLOGY 2020-08-29 10:37:001+ *ABN*(08/29/20 5:37 AM)[facility] VtlomugQDIKNSXSQG1328-56-71 10:37:00Not Detected (08/29/20 5:37 AM)[facility] HermannBLOOD BANK RESULTS 2020-08-29 10:37:00Negative (08/29/20 5:37 AM)[facility] HermannCHEM ECGMR3134-35-49 10:37:86978Yrfbcqus HermannCHEM DNPZS1783-02-13 10:37:0028[facility] HermannCHEM FBZLV3821-18-68 10:37:001.01[facility] HermannCHEM XMIAF9904-29-24 10:37:22874 [facility] HermannCHEM FQDKD8705-84-64 10:37:003.8[facility] HermannCHEM PANEL 2020-08-29 10:37:59711Uiojokyu HermannCHEM YUPCH7137-95-36 10:37:0028[facility] HermannCHEM MECZA0512-18-89 10:37:009.8[facility] HermannCHEM XZYTQ2068-75-26 10:37:0011.8[facility] HermannCHEM BJQNZ0493-44-27 10:37:0059[facility] HermannCHEM ROFBV7077-94-92 10:37:002.9[facility] ShemsekZQLUIEWWLP6292-58-16 10:37:006.8 [facility] FxhtucbVIOLDVJMKR7474-78-84 10:37:004.47[facility] HermannHEMATOLOGY 2020-08-29 10:37:0010.6[facility] TogzhxaDRVWHQWFVT5502-41-78 10:37:0034.0[facility] BgdajxrOOIKNSRMVK8507-77-17 10:37:0076.1[facility] GioimhgQNEZLOMULW9997-50-74 10:37:00 Test Item Value Reference Range Interpretation Comments MCH (test code = MCH) 23.8 pg 27.0-31.0 [facility] LrqevzoKOENTOQNUT9787-95-72 10:37:0031.3[facility] HermannHEMATOLOGY 2020-08-29 10:37:0018.2[facility] CgeywbiVCAMDBNKDR7117-64-08 10:37:60995Cindcqjx SxptgnfXPIGQGIIWS3879-38-24 10:37:007.5[facility] IwpdntzHISEXSLIKV1441-65-55 10:37:00 Test Item Value Reference Range Interpretation Comments PT (test code = PT) 12.8 s 12.0-14.7 [facility] IxinlsmPFPVETCGFC5504-91-32 10:37:00 Test Item Value Reference Range Interpretation Comments INR (test code = INR) 0.97 1 0.85-1.17 [facility] KcdshodYWMEQAJIDV1788-12-89 10:37:00 Test Item Value Reference Range Interpretation Comments PTT (test code = PTT) 25.0 s 22.9-35.8 [facility] CqbowzgZSAXQHFTAZ6185-76-92 10:37:0070.5[facility] HermannHEMATOLOGY 2020-08-29 10:37:0018.8[facility] AmrzfdaJMEHDEIGRH2460-45-34 10:37:009.5[facility] SxuhycvCPWNCTCOIA6887-45-64 10:37:000.9[facility] SnyjixfREGQGPCKDM7137-81-88 10:37:000.3[facility] TtjutwvBUZEYGNQNH2343-23-86 10:37:004.8[facility] XYMYQJVVAA1410-35-32 10:37:001.3[facility] KvevftrPCGXSBVQSC9333-85-71 10:37:000.6 [facility] GboerxjOLKKIDGSVI6823-30-28 10:37:000.1[facility] HermannHEMATOLOGY 2020-08-29 10:37:001+ *ABN*(08/29/20 5:37 AM)[facility] AftjqnvSTWBVWRDUG8533-38-68 10:37:00Not Detected (08/29/20 5:37 AM)[facility] HermannBLOOD BANK RESULTS 2020-08-29 10:37:00Negative (08/29/20 5:37 AM)[facility] HermannCHEM FIYIK8223-96-00 10:37:60475Dktlxbzo HermannCHEM IWNDI0435-53-38 10:37:0028[facility] HermannCHEM WFZXR5017-65-56 10:37:001.01[facility] HermannCHEM SJLLQ8851-73-15 10:37:67814 [facility] HermannCHEM JEPDR3989-59-45 10:37:003.8[facility] HermannCHEM PANEL 2020-08-29 10:37:10843Ybkcvcgl HermannCHEM KRZUV8142-77-41 10:37:0028[facility] HermannCHEM EVEJK0350-63-19 10:37:009.8[facility] HermannCHEM GQUZO1672-11-20 10:37:0011.8[facility] HermannCHEM GAMLS7884-46-45 10:37:0059[facility] HermannCHEM MKOOJ8628-11-14 10:37:002.9[facility] IrkctpwLDGKMWKMYD6096-16-78 10:37:006.8 [facility] VgmamodJEFOKABBZK2605-45-05 10:37:004.47[facility] HermannHEMATOLOGY 2020-08-29 10:37:0010.6[facility] ZjnxgkfSYPFFMAPUU4663-04-64 10:37:0034.0[facility] WtrqjdvOFFMDDBUHV2376-17-59 10:37:0076.1[facility] LgufjfrWAKPNOPBCR4043-65-40 10:37:00 Test Item Value Reference Range Interpretation Comments MCH (test code = MCH) 23.8 pg 27.0-31.0 [facility] AbiekerPQPVYXQFQO8884-26-97 10:37:0031.3[facility] HermannHEMATOLOGY 2020-08-29 10:37:0018.2[facility] RxszhxcNFSZFNDDJF2791-47-91 10:37:19179Qcqxszgw RqsrcteOWYABRFCBQ9268-43-78 10:37:007.5[facility] HiyslguPJSMUEBSXE8992-08-39 10:37:00 Test Item Value Reference Range Interpretation Comments PT (test code = PT) 12.8 s 12.0-14.7 [facility] JituqjhMVTSKKZHAX4476-13-60 10:37:00 Test Item Value Reference Range Interpretation Comments INR (test code = INR) 0.97 1 0.85-1.17 [facility] JlzsgrzFEOYQFDZJF6744-72-74 10:37:00 Test Item Value Reference Range Interpretation Comments PTT (test code = PTT) 25.0 s 22.9-35.8 [facility] RgjezodQFLXIWYLNS2042-93-81 10:37:0070.5[facility]OLOG[facility] 2020-08-29 10:37:0018.8[facility] UxjxwebYHOYBJWTLI6631-30-14 10:37:009.5[facility] JrsfckhNGHHFMBYLD0142-45-26 10:37:000.9[facility] VxkcsihCKLHFSIGTL2530-98-21 10:37:000.3[facility] MzdcgpxFNZJQOJTJS0714-97-10 10:37:004.8[facility] GDNUSRHRLY2743-68-06 10:37:001.3[facility] OhqcnrmCBBBRKQVKX5100-00-32 10:37:000.6 [facility] HmtxccsZCJMXSTZKJ5079-88-94 10:37:000.1[facility]annHEMATOLOGY 2020-08-29 10:37:001+ *ABN*(08/29/20 5:37 AM)[facility] VwgmrpxUBOJNMBNON3860-10-64 10:37:00Not Detected (08/29/20 5:37 AM)[facility] RES[facility] 2020-08-29 10:37:00Negative (08/29/20 5:37 AM)[facility]annCHEM SHTSP1868-05-26 10:37:47099Yphmfuum HermannCHEM OANLZ6715-78-98 10:37:0028[facility]annCHEM WPPON5129-30-06 10:37:001.01[facility]annCHEM OUAZB2281-42-38 10:37:43261 [facility]CHE[facility] POFCA2171-80-38 10:37:003.8[facility]annCHEM PANEL 2020-08-29 10:37:86483Eqpmuxcs HermannCHEM OGYOX7788-02-29 10:37:0028[facility]annCHE[facility] XJTEF3378-41-28 10:37:009.8[facility]annCHEM LLXKK8588-76-83 10:37:0011.8[facility]annCHEM GJIEL2618-35-24 10:37:0059[facility]annCHE[facility] ZWLBM4982-61-74 10:37:002.9[facility] ExjsixhHYSMKIKQKI8211-36-97 10:37:006.8 [facility] KmtmvkkSJHFYGQLCR7046-98-33 10:37:004.47[facility]annHEMATOLOGY 2020-08-29 10:37:0010.6[facility] EsuaflqMNLDTUIXPF1360-16-23 10:37:0034.0[facility] KvojarxIRYPUTAACC7330-74-21 10:37:0076.1[facility] MilvjykCOWTSKGKHA4716-07-24 10:37:00 Test Item Value Reference Range Interpretation Comments MCH (test code = MCH) 23.8 pg 27.0-31.0 [facility] JsqslkaABJXSQLXYI8110-90-13 10:37:0031.3[facility]annHEMATOLOGY 2020-08-29 10:37:0018.2[facility] GedabmdJIWWVOOMSJ2310-78-53 10:37:80632Omcfhfhk TjhyuiaTSDLWDKHJQ8933-85-69 10:37:007.5[facility] NmnhlmhRYWGHHLUIO2230-32-15 10:37:00 Test Item Value Reference Range Interpretation Comments PT (test code = PT) 12.8 s 12.0-14.7 [facility] BzjoelzXDYULTSVSY5762-96-12 10:37:00 Test Item Value Reference Range Interpretation Comments INR (test code = INR) 0.97 1 0.85-1.17 [facility] WjyzyvrRYXVMXJSYR9811-17-42 10:37:00 Test Item Value Reference Range Interpretation Comments PTT (test code = PTT) 25.0 s 22.9-35.8 [facility] GxpcbrmLOEHFKDAIJ4513-77-01 10:37:0070.5[facility]annHEMATOLOGY 2020-08-29 10:37:0018.8[facility] LetxoioUWAAARMOHN7117-84-01 10:37:009.5[facility] NyuywekBQNVENMOHP0205-10-11 10:37:000.9[facility] ZwxukvqYMZVWABBSD2113-90-79 10:37:000.3[facility] KrbenpvLYFRJGRWZX1236-19-15 10:37:004.8[facility] YELMSLGCLQ1626-28-84 10:37:001.3[facility] XporjpvTGJQPVNGGY0816-82-06 10:37:000.6 [facility] ExcclkwCJUVUNTGSQ3787-13-00 10:37:000.1[facility]annHEMATOLOGY 2020-08-29 10:37:001+ *ABN*(08/29/20 5:37 AM)[facility] FlueblrSEFLOIZVWO6164-84-59 10:37:00Not Detected (08/29/20 5:37 AM)[facility]annBL[facility]OD BANK RESULTS 2020-08-29 10:37:00Negative (08/29/20 5:37 AM)[facility]annCHEM WDNGT1011-14-93 10:37:75314Lligzkeq HermannCHEM CJUKH4927-49-98 10:37:0028[facility]annCHEM VNMYR4556-80-37 10:37:001.01[facility]annCHEM DQIUA3474-68-78 10:37:17585 [facility]annCHE[facility] HYTCB8366-59-85 10:37:003.8[facility] HermannCHEM PANEL 2020-08-29 10:37:94388Pvxaqjor HermannCHEM SSXOL6125-49-07 10:37:0028[facility]annCHEM PIICN1969-72-44 10:37:009.8[facility]annCHEM XJQWG7897-62-18 10:37:0011.8[facility] HermannCHEM SKKCG0723-45-06 10:37:0059[facility]annCHEM ZBAXZ7276-84-81 10:37:002.9[facility] UhzqnpoLMWNPKUHIB9871-81-62 10:37:006.8 [facility] HltmhxxBWQTZRLCMI7412-50-83 10:37:004.47[facility]annHEMATOLOGY 2020-08-29 10:37:0010.6[facility] EzfhcwrULHRSZFINJ6212-75-48 10:37:0034.0[facility] AmqnawcSLXXWULTLU0066-60-49 10:37:0076.1[facility] TbofbepZRUPYZUBLF8107-63-88 10:37:00 Test Item Value Reference Range Interpretation Comments MCH (test code = MCH) 23.8 pg 27.0-31.0 [facility] XwbzyivJSHKJEFVMT4033-75-68 10:37:0031.3[facility]annHEMATOLOGY 2020-08-29 10:37:0018.2[facility] PowuforNKQCIXFGMH8156-29-12 10:37:64585Tcsxubwm CskagpgSDFNIZRBCG3109-48-96 10:37:007.5[facility] CnhlgpmAQNBHCLUSR3062-55-53 10:37:00 Test Item Value Reference Range Interpretation Comments PT (test code = PT) 12.8 s 12.0-14.7 [facility] OzwwlouPRZXATPJIY0893-31-07 10:37:00 Test Item Value Reference Range Interpretation Comments INR (test code = INR) 0.97 1 0.85-1.17 [facility] HgkxtoeIXOTKZHYBF6023-75-29 10:37:00 Test Item Value Reference Range Interpretation Comments PTT (test code = PTT) 25.0 s 22.9-35.8 [facility] LdmewswYYQHPVMWAR1163-34-40 10:37:0070.5[facility]annHEMATOLOGY 2020-08-29 10:37:0018.8[facility] ObeckfnEPKBOBBAHL8374-56-55 10:37:009.5[facility] WwuwtlhDUYGHNQVQZ4419-65-17 10:37:000.9[facility] LberzwvYOEIEIGGHK4684-70-64 10:37:000.3[facility] ZturztcBRQGSGXBWW8428-12-57 10:37:004.8[facility] [place] ADXYKRQUMP9110-95-63 10:37:001.3[facility] YjfdjdeELKTYHIOLP2366-14-13 10:37:000.6 [facility] LubhwlcSGEOZOSUTF6951-75-86 10:37:000.1[facility]annHEMATOLOGY 2020-08-29 10:37:001+ *ABN*(08/29/20 5:37 AM)[facility] VpkyfcoXEVYPDUOZG8134-68-48 10:37:00Not Detected (08/29/20 5:37 AM)[facility]annBLOOD BANK RESULTS 2020-08-29 10:37:00Negative (08/29/20 5:37 AM)[facility] HermannCHEM VNCLV7362-05-61 10:37:33271Giehykao HermannCHEM MVNNF4453-07-47 10:37:0028[facility] HermannCHEM OVRXA1631-44-47 10:37:001.01[facility] HermannCHEM GHZAV4811-35-42 10:37:61794 [facility]annCHEM QGEPZ9049-28-91 10:37:003.8[facility] HermannCHEM PANEL 2020-08-29 10:37:60320Zrbggelo HermannCHEM NWYNG4027-17-47 10:37:0028[facility] HermannCHEM FYXEO6605-80-67 10:37:009.8[facility] HermannCHEM HAYNZ9693-55-36 10:37:0011.8[facility] HermannCHEM WAOGL2885-30-90 10:37:0059[facility] HermannCHEM JLVZL8435-11-55 10:37:002.9[facility] RyxncecWLYKFEZWGP4118-74-78 10:37:006.8 [facility] KhuywvpJWPTQIHREH1685-18-49 10:37:004.47[facility]annHEMATOLOGY 2020-08-29 10:37:0010.6[facility] FdukngxUUZMLXBQRZ3997-47-13 10:37:0034.0[facility] IaixnsfMHUFOKKAWQ8430-51-65 10:37:0076.1[facility] EzkkmqcBNNKNTUNFG2809-42-20 10:37:00 Test Item Value Reference Range Interpretation Comments MCH (test code = MCH) 23.8 pg 27.0-31.0 [facility] WsnzgxsEESXOUICGQ9377-92-63 10:37:0031.3[facility] HermannHEMATOLOGY 2020-08-29 10:37:0018.2[facility] GrdisvfRJRYGVNFVK4040-66-11 10:37:25521Ghotigmn DvhilwaSFQZMYZBUZ1475-15-09 10:37:007.5[facility] HnimxstJMUQGEXFFZ9064-97-11 10:37:00 Test Item Value Reference Range Interpretation Comments PT (test code = PT) 12.8 s 12.0-14.7 [facility] HachwrpAMUWIZXZVT3710-72-98 10:37:00 Test Item Value Reference Range Interpretation Comments INR (test code = INR) 0.97 1 0.85-1.17 [facility] OwrzklmAIFYAUJSNM0594-16-55 10:37:00 Test Item Value Reference Range Interpretation Comments PTT (test code = PTT) 25.0 s 22.9-35.8 [facility] GxkoqrhSJYPDEZLGD0045-24-44 10:37:0070.5[facility] HermannHEMATOLOGY 2020-08-29 10:37:0018.8[facility] YiqfzwdBZRJFGOZZL1282-97-13 10:37:009.5[facility] DxiaolxCFAMBHCGEJ8874-91-25 10:37:000.9[facility] EoufbcyMTHLFBINIE5007-87-31 10:37:000.3[facility] TzqorlyVPLNPBMCPG3834-93-05 10:37:004.8[facility] Marty HYELVSQFDE3381-17-31 10:37:001.3[facility] TdqwfdvRYGIMMPFHQ1643-79-74 10:37:000.6 [facility] QsjakeuAXSSHVWBKR9996-07-24 10:37:000.1[facility] HermannHEMATOLOGY 2020-08-29 10:37:001+ *ABN*(08/29/20 5:37 AM)[facility] OhkgivkFTNTASPWXY6203-96-40 10:37:00Not Detected (08/29/20 5:37 AM)[facility]annBLOOD BANK RESULTS 2020-08-29 10:37:00Negative (08/29/20 5:37 AM)[facility] HermannCHEM TDPXD6620-82-01 10:37:35859Gbinlcnp HermannCHEM QSRBF0960-06-99 10:37:0028[facility] HermannCHEM JRWRT6354-45-68 10:37:001.01[facility] HermannCHEM UAYIV5553-87-82 10:37:68860 [facility]annCHEM FOLSL3372-54-67 10:37:003.8[facility] HermannCHEM PANEL 2020-08-29 10:37:46972Sgywkmzn HermannCHEM CZGCY7541-03-09 10:37:0028[facility] HermannCHEM CJGXU0977-32-40 10:37:009.8[facility] HermannCHEM QLDWT0958-53-39 10:37:0011.8[facility] HermannCHEM RRREX0503-57-38 10:37:0059[facility] HermannCHEM YQRJD6900-15-29 10:37:002.9[facility] VfqnbkyTVSVCXFSNQ4739-80-13 10:37:006.8 [facility] UdfyigvIWDOBLFTKN4661-63-29 10:37:004.47[facility]annHEMATOLOGY 2020-08-29 10:37:0010.6[facility] UjoowelRRTCKRQCRX8545-61-92 10:37:0034.0[facility] NpsyjjvXPQPCNHLCU3176-04-89 10:37:0076.1[facility] WrxlsnaUKFJHJKHEG0206-26-64 10:37:00 Test Item Value Reference Range Interpretation Comments MCH (test code = MCH) 23.8 pg 27.0-31.0 [facility] WfzbqfvSCYRAXGNYJ6472-85-69 10:37:0031.3[facility] HermannHEMATOLOGY 2020-08-29 10:37:0018.2[facility] BspgaoaYJJLISWJXG1630-11-78 10:37:45349Mvbtnqwd UuuitcgHRFRQFNHDQ2817-18-57 10:37:007.5[facility] QyqvjcxXRINFRQKYK5470-25-36 10:37:00 Test Item Value Reference Range Interpretation Comments PT (test code = PT) 12.8 s 12.0-14.7 [facility] FbtgrjvPPCAQXGJMD8830-31-27 10:37:00 Test Item Value Reference Range Interpretation Comments INR (test code = INR) 0.97 1 0.85-1.17 [facility] OdnaeawQVEWMFIHBL8566-98-89 10:37:00 Test Item Value Reference Range Interpretation Comments PTT (test code = PTT) 25.0 s 22.9-35.8 [facility] PpadggvAGKITZYIPS2056-24-08 10:37:0070.5[facility] HermannHEMATOLOGY 2020-08-29 10:37:0018.8[facility] XlxdnfeBCNZLHRULE5289-77-17 10:37:009.5[facility] PnkpjspLDWKXCTCNH1678-76-04 10:37:000.9[facility] CvsbosiTNPNKOCSQA7985-31-01 10:37:000.3[facility] OdmvtjwLZQMHLXMAT9908-89-14 10:37:004.8[facility] [place] PNRYSPJTWJ5370-40-93 10:37:001.3[facility] UlfxcpcJKBYPHDEOO0496-72-08 10:37:000.6 [facility] NniuoqyFSTJLFUARL9615-63-31 10:37:000.1[facility] HermannHEMATOLOGY 2020-08-29 10:37:001+ *ABN*(08/29/20 5:37 AM)[facility] UcbkncjFCNAGFUAXT6882-77-71 10:37:00Not Detected (08/29/20 5:37 AM)[facility] 2020-08-27 23:14:39PROCEDURE: NM [...] rate, with complete emptying by 4 hours. [facility]-[id number] Interface, Radiology Results 08/27/2020 6:17 PM CDT [...] rate, with complete emptying by 4 hours. [facility]-[id number] HospitalMiscellaneous referral test 2020-05-09 21:24:58 Test Item Value Reference Range Interpretation Comments Mis test HIV-1 RNA QUAL PCR name (test code = 2566) Mis test see note Human Immunodef iciency result (test Virus 1 (HIV-1) by code = 1730) Qualitative Nurse Office-M ediated Amplification ( TMA) AR test code 6419184 HIV-1 by Qualit ative TMA See Note SOURCE/SPECIMEN PLASMA HIV-1 RNA, QUAL ITATIVE TMA HIV-1 RNA, QL TMA T SLED MAKER Test Not Performed. Initial testing necessi tated a repeat, but the re was insufficient sa mple to perform repeat. SAMPLE LEFT FOR REPEAT IS 50 uL. NEED 1000 u L TO RUN REPEAT. This te st was performed using the APTIMA(R) HIV-R NA Qualitative Ass ay (Gen-Probe). ======== ======== Te st performed by:[employer] [address] [address] KYLE (test HIVQL - HIV-1 RNA, code = KYLE) Qualitative TMA (FROZEN)[facility] Test Code: 8249335Xvamds: plasma [facility] duplex venous upper ynzdfxexx8983-01-81 04:57:00 Vascular Ultrasound Laboratory Upper Extremity Venous Report [address] [place] [address] Pat.Name: LIO WATTS Marta.ID: [id number] .Date: 04/30/2020 Refer.MD: ELISEO ARCE MD Exam Time: 5:04:00 PM Study Type:UE Venous Age: 9 1955,65Y Sex: FEMALE Sonogrphr: IBIS Espinosa, SANKET Pat. Stat.:Inpatient Room: [place] [address] 2020 Tape Vol: JM, CPT - 4: 00030 Echo Event ID:[id number] Order ID: [id number] Reason for Study:Arm swelling or pain, DVT [...] veins.*Preliminary result reported to ASHLEY Santos @ 1938 on 04/30/20.PHYSICIAN INTERPRETATION Venous examination of the both upper extremities and neck demonstratedno evidence of deep venous thrombosis. Total superficial vein thrombosis of the right basilic vein. FINDINGS: Signed 04/30/2020 10:57 PMFrancis Cabral MD, RPVIIntergarfield county public hospital, Radiology Results In - 04/30/2020 10:58 PM CST Vascular Ultrasound Laboratory Upper Extremity Venous Report [address] [place] [address] Pat.Name: LIO WATTS Pat.ID: [id number] .Date: 04/30/2020 Refer.MD: ELISEO ARCE MD Exam Time: 5:04:00 PM Study Type:UE Venous Age: 9 1955,65Y Sex: FEMALE Sonogrphr: IBIS Espinosa, SANKET Pat. Stat.:Inpatient Room: [place] [address] 2020 Tape Vol: EDGAR, CPT - 4: 03306 Echo Event ID:[id number] Order ID: [id number] Reason for Study:Arm swelling or pain, DVT [...] veins.*Preliminary result reported to ASHLEY Santos @ 9361 on 04/30/20.PHYSICIAN INTERPRETATION Venous examination of the both upper extremities and neck demonstratedno evidence of deep venous thrombosis. Total superficial vein thrombosis of the right basilic vein. FINDINGS: ------Signed 04/30/2020 10:57 Rajni Cabral MD, [facility]XR Chest 2 Wu5675-50-82 22:21:01EXAMINATION: XR CHEST 2 VW CLINICAL HISTORY: [...] active disease of the chest.[id number]_[id number] Unsuccessful Ylwqrhb1536-80-33 17:14:34ANicole zhang RN 04/30/2020 11:25 AMMidline Unsuccessful [...] PIV g.20 in lower arm .[facility] Abdomen 1 Vw Xjkyasis7112-12-08 16:20:14EXAMINATION: XR ABDOMEN 1 VW PORTABLE CLINICAL HISTORY: Abdominal pain post op COMPARISON: No prior IMPRESSION:1.Residual barium within the colon throughout. No small bowel obstruction noted. [facility]-U [id number] Interface, Radiology Results Incoming - 04/30/2020 10:23 AM CST EXAMINATION: XR ABDOMEN 1 VW PORTABLECLINICAL HISTORY: Abdominalpain post opCOMPARISON: No priorIMPRESSION:1.Residual barium within the colon throughout. No smallbowel obstruction noted.[facility]-[id number] HmzbgmbjEapemf3988-90-12 20:57:57Carlee Malloy MD 04/28/2020 2:59 PMAirwayPerformed by: Carlee Malloy MDAuthorized by: Carlee Malloy MD Location: ORUrgency: ElectiveDifficult Airway: No Anesthesiologist: Kvng Malloy MDResident/DEPUTY OF COUNTER INTELLIGENCE/AA: Allan Morocho, DOPerformed by: resident/DEPUTY OF COUNTER INTELLIGENCE/AAPreoxygenated wjfi214% O2: Yes C- spine Precautions Maintained Throughout: [...] No Number of Attempts at Approach: 1 [facility] HospitalTransthoracic Echocardiogram Complete, (w Contrast, Strain and 3D if needed)2020-04-28 00:20:00 Echocardiography Report [address] [facility], [facility] [address], [place] [address] Pat.Name: LIO WATTS.ID: [id number] .Date: 04/27/2020 Refer.MD: ELISEO ARCE MD Exam Time: 2:21:00 PM Study Type:Routine Echo Height: 64in Weight: 213lb BSA: 2.01 m2 Age: 9 1955,65Y Sex: FEMALE BP: 128/89 HR: 102 bpm Sonogrphr: SANKET Perkins Pat. Stat.:Inpatient Room: [facility] Study Status:Final Echo Event ID:[id number] Order ID: [id number] Reason for Study:Atrial FibrillationHistory / Clinical:Hypertension Procedures: [...] estimate PA systolic pressure. MEASUREMENTS: 2DParasternal Long [place] Ao An 2.2 cm LVPWd 1 cm [...] 04/27/2020 6:21 PM CST Echocardiography Report [address] [place] [address] Pat.Name: LIO WATTS Pat.ID: [id number] .Date: 04/27/2020 Refer.MD: ELISEO ARCE MD Exam Time: 2:21:00 PM Study Type:Routine Echo Height: 64in Weight: 213lb BSA: 2.01 m2 Age: 9 1955,65Y Sex: FEMALE BP: 128/89 HR: 102 bpm Sonogrphr: SANKET Perkins Pat. Stat.:Inpatient Room: [facility] Study Status:Final Echo Event ID:[id number] Order ID: [id number] Reason for Study:Atrial FibrillationHistory / Clinical:Hypertension Procedures: [...] PA systolic pressure.- MEASUREMENTS: ---- 2DParasternal Long [place] Ao An 2.2 cm LVPWd 1 cm [...] LVOT CI 3.1 l/m/m2 Signed 04/27/2020 06:20 PMMohammed Mario, [facility] Esophagram Double Tpakmycj8407-47-02 18:07:12EXAMINATION: FL ESOPHAGRAM DOUBLE CONTRAST CLINICAL HISTORY: [...] hiatal hernia. There was mild spontaneous gastroesophageal reflux.[id number] HospitalCT Chest Wo Contrast Abdomen Wo Contrast Pelvis Wo Orvratsl2720-59-28 15:23:55EXAMINATION: CT CHEST WO CONTRAST ABDOMEN WO [...] chronic and incidental findings as detailed above. [facility]-[id number] Dictated and approved by radiology resi dent/fellow: Jenna Valenzuela M.D. I, Medhat Flowers Jr., M.D., personally reviewed the images and resident's/fellow's findings and agree with the final report.[facility], Radiology Results Incoming - 04/21/2020 9:27 [...] aorta.4.Additional chronic and incidental findings as detailed above.[facility]-[id number] and approved by residential manager/fellow: Jenna Valenzuela M.D.I, Medhat Flowers Jr., M.D., personally reviewed the images and resident's/fellow's findings and agree with the final report. [facility], GC, TV,PCR, IN AEEZZ2458-14-61 15:38:00 Test Item Value Reference Range Interpretation Comments FT (test code = CHTR) Not detected (qualifier Not Detected N value) FT (test code = Not detected (qualifier Not Detected N NGONO) value) FT (test code = TRVG) Not detected (qualifier Not Detected N value) URINALYSIS WITH BSBCNELJPWE7910-25-77 10:57:00 Test Item Value Reference Range Interpretation Comments Color (test code = UCOLR) Dk. Yellow Clarity (test code = UCLAR) Hazy Glucose (test code = UGLUC) NEGATIVE NEGATIVE N Bilirubin (test code = UBILI) NEGATIVE NEGATIVE N Ketones (test code = UKET) NEGATIVE NEGATIVE N Specific [place] (test code = 1.025 1.005-1.030 A USPGR) [...]
[2021-06-07 19:45] LABS: Absolute Lymphocytes (CBC) 1.2 K/uL (0.7-4.9); Hematocrit 37.7 % (36.0-45.0); MPV 6.9 fL (7.6-11.3); RBC Red Blood Cell Count 4.75 M/uL (3.86-4.86)
[2021-06-07] MEDS ORDERED: PROMETHAZINE INJ 25 MG/ML AMP ONE (19:45)
[2021-06-07] MEDS ORDERED: FAMOTIDINE 20 MG/2 ML VIAL IV ONE (19:45)
[2021-06-07 19:49] LABS: Protime INR 1.09
[2021-06-07 20:08] LABS: Albumin 2.9 g/dL (3.4-5.0); Bilirubin Direct 0.2 mg/dL (0-0.2); Bilirubin Total 0.4 mg/dL (0.2-1.0); Potassium 3.2 mmol/L (3.5-5.1); Protein, Total 7.1 g/dL (6.4-8.2)
[2021-06-07 20:36] LABS: Magnesium 1.9 mg/dL (1.8-2.4); Troponin High Sensitivity 16.4 pg/mL (<58.9)
--- NOTE | 2021-06-07 20:36 | RAD REPORT ---
EXAM DESCRIPTION: RAD - Chest Single View - 06/07/2021 8:00 pm CLINICAL HISTORY: SOB Chest pain. COMPARISON: Chest Single View dated 06/06/2021; Chest Single View dated 05/30/2021; Chest Single View d ated 05/28/2021; Chest Single View dated 05/27/2021; Chest Single View dated 05/15/2021 FINDINGS: Portable technique limits examination quality. Since yesterday's study, bilateral pulmonary opacities appear mildly worse. The heart is moderately e nlarged. No displaced fractures.Bilateral shoulder arthroplasties. IMPRESSION: Mild worsening in lung aeration is noted since yesterday's examination.
[2021-06-07 21:01] LABS: Urine Blood Negative (Negative); Urine Glucose Negative (Negative); Urine Protein 1+ (Negative); Urine Specific Gravity >=1.030 (1.005-1.030)
[2021-06-07] MEDS ORDERED: LORAZEPAM 1 MG TABLET ONE (21:06)
[2021-06-07 21:15] LABS: Barbiturates NEGATIVE (NEGATIVE); Benzodiazepines POSITIVE (NEGATIVE); Cocaine NEGATIVE (NEGATIVE); METHAMPHETAM NEGATIVE (NEGATIVE); Methadone NEGATIVE (NEGATIVE); Opiates NEGATIVE (NEGATIVE); Phencyclidine NEGATIVE (NEGATIVE); THC Cannibis NEGATIVE (NEGATIVE)
--- NOTE | 2021-06-07 21:51 | RAD REPORT ---
EXAM DESCRIPTION: CT - Head Brain Wo Cont - 06/07/2021 9:40 pm CLINICAL HISTORY: DIZZINESS Headache, drowsiness COMPARISON: Head Brain Wo Cont dated 10/22/2018; Head Brain Wo Cont dated 06/17/2018 TECHNIQUE: All CT scans are performed using dose optimization technique as appropriate and may inclu de automated exposure control or mA/KV adjustment according to patient size. FINDINGS: No intracranial hemorrhage, hydrocephalus or extra-axial fluid collection.Mild generalized brain atrophy is present with mild periventricular and deep white matter chronic microvascular ische izabella changes.No areas of brain edema or evidence of midline shift. The paranasal sinuses and mastoids are clear. The calvarium is intact. IMPRESSION: No acute intracranial abnormality.
[2021-06-07] MEDS ORDERED: METHYLPREDNISOLONE 125 MG INJ ONE (21:55)
[2021-06-07] MEDS ORDERED: ALBUTEROL 2.5 MG/3 ML NEB SOL ONE (21:56)
[2021-06-07] MEDS ORDERED: FUROSEMIDE 40 MG/4 ML VIAL ONE (21:56)
[2021-06-07] MEDS ORDERED: IPRATROPIUM BROM 0.5MG/2.5ML ONE (21:56)
--- NOTE | 2021-06-07 23:38 | ER ---
Nurse's Notes [facility] Name: Marjan Fleming Age: 66 yrs Sex: Female : 1955 Arrival Date: 06/07/2021 Time: 18:43 Bed 23 Private MD: Lele Rahman H Diagnosis: COPD/ Chronic obstructive pulmonary disease with (acute) exacerbation;Acute on chronic combined systolic (congestive) and diastolic (congestive) heart failure;Nausea with vomiting, unspecified Presentation: 06/07 18:57 Chief complaint: Patient states: I was here yesterday; I went home and laid in bed like [facility] I was told and I have just been dizzy dizzy so I stayed in bed messed myself all day and I'm real dizzy. Coronavirus screen: Vaccine status: Patient reports receiving the 2nd dose of the covid vaccine. Client denies travel out of the [place] in the last 14 days. Ebola Screen: Patient negative for fever greater than or equal to 101.5 degrees Fahrenheit, and additional compatible Ebola Virus Disease symptoms Patient denies exposure to infectious person. Patient denies travel to an Ebola-affected area in the 21 days before illness onset. Initial Sepsis Screen: Does the patient meet any 2 criteria? No. Patient's initial sepsis screen is negative. Does the patient have a suspected source of infection? No. Patient's initial sepsis screen is negative. Risk Assessment: Do you want to hurt yourself or someone else? Patient reports no desire to harm self or others. Onset of symptoms. 18:57 Method Of Arrival: Ambulatory [facility] 18:57 Acuity: BLAYNE 3 jh5 Triage Assessment: 18:59 General: Appears in no apparent distress. obese, unkempt, Behavior is calm, jh5 cooperative, appropriate for age. Pain: Denies pain. GI: Reports diarrhea, vomiting. Historical: - Allergies: 18:59 Bactrim DS; 5 18:59 butorphanol tartrate; 5 18:59 Fentanyl; 5 18:59 Reglan; 5 18:59 Stadol; 5 18:59 sulfamethoxazole (bulk); 5 18:59 TRIMETHOPRIM; 5 - PMHx: 18:59 Anxiety; Atrial Fib; Bipolar disorder; Chronic pain; COPD; esophageal varices; jh5 Hepatitis; HIV; Hypertension; Migraines; Panic Attacks; - PSHx: 18:59 Appendectomy; Bilateral shoulder repair; Cholecystectomy; hernia repair; R wrist SX; jh5 - Immunization history:: Adult Immunizations up to date. - Social history:: Smoking status: Patient denies any tobacco usage or history of. Screenin:03 Abuse screen: Denies threats or abuse. Nutritional screening: No deficits noted. st1 Tuberculosis screening: No symptoms or risk factors identified. Fall Risk None identified. Assessment: 22:23 Reassessment: No changes from previously documented assessment. General: Appears in no st1 apparent distress. well groomed, well developed, Behavior is calm, cooperative, Reports feeling ill for. GI: Abdomen is round obese, Bowel sounds present X 4 quads. : No deficits noted. Musculoskeletal: No deficits noted. Vital Signs: 18:57 BP 179 / 99; Pulse 76; Resp 18; Temp 97.1; Pulse Ox 87% on R/A; Weight 99.79 kg; Height [facility] 5 ft. 6 in. (167.64 cm); 20:00 BP 189 / 84; Pulse 69; Resp 18; Pulse Ox 96% on 2 lpm NC; st1 22:23 BP 151 / 80; Pulse 76; Resp 20; Pulse Ox 90% on 2 lpm NC; st1 06/08 00:23 BP 153 / 101; Pulse 72; Resp 16; Pulse Ox 96% on 2 lpm NC; st1 06/07 18:57 Body Mass Index 35.51 (99.79 kg, 167.64 cm) [facility] Vitals: 00:23 Cardiac Rhythm Assessment Regular. st1 Crystal Coma Score: 06/07 19:30 Eye Response: spontaneous(4). Verbal Response: oriented(5). Motor Response: obeys st1 commands(6). Total: 15. ED Course: 18:43 Patient arrived in ED. ds1 18:43 Lele Rahman DO is Private Physician. ds1 18:59 Triage completed. jh5 18:59 Arm band placed on right wrist. jh5 19:02 Prem Garcia MD is Attending Physician. [facility] 19:25 Kelsey Moreno RN is Primary Nurse. st1 19:30 audit reviewer on. Pulse ox on. NIBP on. Verbal reassurance given. Head of bed st1 elevated. 19:30 Patient has correct armband on for positive identification. Bed in low position. Call st1 light in reach. Side rails up X 1. 19:40 Basic Metabolic Panel Sent. st1 19:40 CBC with Diff Sent. st1 19:40 LFT's Sent. st1 19:40 Magnesium Sent. st1 19:40 NT PRO-BNP Sent. st1 19:40 PT-INR Sent. st1 19:40 Troponin HS Sent. st1 19:40 Lipase Sent. st1 19:40 Initial lab(s) drawn, by me, sent to lab. st1 20:00 XRAY Chest (1 view) In Process Unspecified. EDMS 20:01 Inserted saline lock: 20 gauge in right antecubital area, using aseptic technique. st1 20:26 the patient has requested morphine pain medication. Dr. Garcia informed. st1 20:37 Dr. Garcia spoke to the patient about the importance of diagnosing her condition and st1 that at this point morphine is not appropriate. The patient states she understands and appeared to be receptive to the doctor and his rationale on diagnosing the patients condition. 20:54 UDS Sent. st1 21:02 EKG done, by ED staff. st1 21:03 Urine collected: clean catch specimen, clear. st1 21:40 CT Head Brain wo Cont In Process Unspecified. EDMS 21:48 Inserted saline lock: 20 gauge in left antecubital area, using aseptic technique. st1 22:06 Abdomen In Process Unspecified. EDMS 22:22 intact, bleeding controlled, No redness/swelling at site. Pressure dressing applied. st1 22:22 Inserted saline lock: 20 gauge in right antecubital area, using aseptic technique. st1 23:36 Brandon Shin is Hospitalizing Provider. 7 23:57 SARS-COV-2 RT PCR Sent. st1 23:57 COVID-19 SARS RT PCR (Document "Date of Onset" if Symptomatic) Sent. st1 01 00:23 No provider procedures requiring assistance completed. st1 Administered Medications: 06/07 19:59 Drug: Phenergan (promethazine) 12.5 mg Route: IVP; Site: right antecubital; st1 19:59 Drug: Pepcid (famotidine) 20 mg Route: IVP; Site: right antecubital; st1 21:08 Drug: Ativan (LORazepam) 2 mg Route: PO; st1 22:20 Drug: AtroVENT (ipratropium) Aerosol 0.5 mg Route: Inhalation; st1 22:20 Drug: SOLU-Medrol (methylPrednisoLONE) 125 mg Route: IVP; Site: right antecubital; st1 22:21 Drug: Lasix (furosemide) 40 mg Route: IVP; Site: right antecubital; st1 22:21 Drug: Albuterol 2.5 mg Route: Inhalation; st1 Outcome: 23:37 Decision to Hospitalize by Provider. mh7 06/08 07:00 Admitted to ER Hold. Please see [facility] for further documentation. eo2 07:00 Condition: stable eo2 07:00 Discharge instructions given to patient, Instructed on the need for admit, Demonstrated understanding of instructions. 19:32 Patient left the ED. eo2 Signatures: Dispatcher [employer] EDTN Lainey Monson ds1 Prem Garcia MD MD 7 Sharee Castrejon RN RN 5 Rosario Brink RN RN eo2 Kelsey Moreno RN RN st1
--- NOTE | 2021-06-07 23:38 | EDPHYS ---
Physician Documentation [facility] Name: Marjan Fleming Age: 66 yrs Sex: Female : 1955 Arrival Date: 06/07/2021 Time: 18:43 Bed 23 Private MD: Lele Rahman H ED Physician Prem Garcia HPI: 06/07 19:23 This 66 yrs old Female presents to ER via Ambulatory with complaints of Vomiting, mh7 Breathing Difficulty. 19:23 The patient presents to the emergency department with nausea, that is moderate, mh7 vomiting, that is intermittent, described as clear fluid. Onset: The symptoms/episode began/occurred 3 day(s) ago. Possible causes: unknown. The symptoms are aggravated by movement, The symptoms are alleviated by nothing. Associated signs and symptoms: Pertinent positives: nausea, vomiting, Dizziness with spinning sensation, breathing difficulty, Pertinent negatives: abdominal pain, anorexia, belching, constipation, diarrhea, dysuria, fever, flatulence, GI bleeding, hematuria. Severity of symptoms: At their worst the symptoms were moderate yesterday, in the emergency department the symptoms are unchanged. The patient has experienced similar episodes in the past, multiple times. The patient has been recently seen at the [facility] Emergency Department, this week. Historical: - Allergies: 18:59 Bactrim DS; 5 18:59 butorphanol tartrate; jh5 18:59 Fentanyl; 5 18:59 Reglan; 5 18:59 Stadol; 5 18:59 sulfamethoxazole (bulk); 5 18:59 TRIMETHOPRIM; jh5 - PMHx: 18:59 Anxiety; Atrial Fib; Bipolar disorder; Chronic pain; COPD; esophageal varices; jh5 Hepatitis; HIV; Hypertension; Migraines; Panic Attacks; - PSHx: 18:59 Appendectomy; Bilateral shoulder repair; Cholecystectomy; hernia repair; R wrist SX; jh5 - Immunization history:: Adult Immunizations up to date. - Social history:: Smoking status: Patient denies any tobacco usage or history of. ROS: 19:23 Constitutional: Negative for fever, chills, and weight loss, Eyes: Negative for injury, mh7 pain, redness, and discharge, ENT: Negative for injury, pain, and discharge, Neck: Negative for injury, pain, and swelling, Cardiovascular: Negative for chest pain, palpitations, and edema, Back: Negative for injury and pain, : Negative for injury, bleeding, discharge, and swelling, MS/Extremity: Negative for injury and deformity, Skin: Negative for injury, rash, and discoloration, Neuro: Negative for headache, weakness, numbness, tingling, and seizure. 19:23 Allergy/Immunology: Negative for hives, rash, and allergies, Endocrine: Negative for neck swelling, polydipsia, polyuria, polyphagia, and marked weight changes, Hematologic/Lymphatic: Negative for swollen nodes, abnormal bleeding, and unusual bruising. 19:23 Psych: Positive for anxiety, Negative for depression, drug dependence, alcohol dependence, auditory hallucinations, visual hallucinations, homicidal ideation, insomnia, suicide gesture, suicidal ideation. Exam: 19:23 Head/Face: Normocephalic, atraumatic. Eyes: Pupils equal round and reactive to light, mh7 extra-ocular motions intact. Lids and lashes normal. Conjunctiva and sclera are non-icteric and not injected. Cornea within normal limits. Periorbital areas with no swelling, redness, or edema. Neck: Trachea midline, no thyromegaly or masses palpated, and no cervical lymphadenopathy. Supple, full range of motion without nuchal rigidity, or vertebral point tenderness. No Meningismus. Chest/axilla: Normal chest wall appearance and motion. Nontender with no deformity. No lesions are appreciated. Cardiovascular: Regular rate and rhythm with a normal S1 and S2. No gallops, murmurs, or rubs. Normal PMI, no JVD. No pulse deficits. 19:23 Abdomen/GI: Soft, non-tender, with normal bowel sounds. No distension or tympany. No guarding or rebound. No evidence of tenderness throughout. Back: No spinal tenderness. No costovertebral tenderness. Full range of motion. Skin: Warm, dry with normal turgor. Normal color with no rashes, no lesions, and no evidence of cellulitis. MS/ Extremity: Pulses equal, no cyanosis. Neurovascular intact. Full, normal range of motion. 19:23 Constitutional: The patient appears in no acute distress, alert, awake, anxious, obese. 19:23 Respiratory: the patient does not display signs of respiratory distress, Respirations: normal, Breath sounds: rhonchi, that are mild, are scattered, Respiratory rate: 18 19:23 Neuro: Orientation: is normal, Mentation: is normal, Memory: is normal, Cranial nerves: grossly normal, Cerebellar function: is grossly normal, Motor: is normal, Sensation: is normal, Gait: not tested. seizure activity, is not displayed by the patient, Abnormal movements: there are no abnormal movements. 19:23 Psych: Behavior/mood is cooperative, anxious, Affect is animated, Oriented to person, place, time, Patient has no thoughts/intents to harm self or others. Judgement / Insight is normal. Memory is normal. Delusions/hallucinations are not present. Vital Signs: 18:57 BP 179 / 99; Pulse 76; Resp 18; Temp 97.1; Pulse Ox 87% on R/A; Weight 99.79 kg; Height jh5 5 ft. 6 in. (167.64 cm); 20:00 BP 189 / 84; Pulse 69; Resp 18; Pulse Ox 96% on 2 lpm NC; st1 22:23 BP 151 / 80; Pulse 76; Resp 20; Pulse Ox 90% on 2 lpm NC; st1 06/08 00:23 BP 153 / 101; Pulse 72; Resp 16; Pulse Ox 96% on 2 lpm NC; st1 06/07 18:57 Body Mass Index 35.51 (99.79 kg, 167.64 cm) jh5 [place] Coma Score: 06/07 19:30 Eye Response: spontaneous(4). Verbal Response: oriented(5). Motor Response: obeys st1 commands(6). Total: 15. MDM: 23:35 Differential diagnosis: gastritis, pancreatitis, diverticulitis, viral gastroenteritis, mh7 gastroenteritis, COPD exacerbation, CHF exacerbation. Data reviewed: vital signs, nurses notes, old medical records, lab test result(s), cardiac enzymes, CBC, electrolytes, EKG, radiologic studies, CT scan, plain films. Data interpreted: Pulse oximetry: on 2L(s) per nasal canula, is 94 %. Interpretation: acceptable. Counseling: I had a detailed discussion with the patient and/or guardian regarding: the historical points, exam findings, and any diagnostic results supporting the discharge/admit diagnosis, the presence of at least one elevated blood pressure reading (>120/80) during this emergency department visit, lab results, radiology results, the need for further work-up and treatment in the hospital. Response to treatment: the patient's symptoms have mildly improved after treatment. 23:37 Patient medically screened. [facility] 06/07 19:20 Order name: Basic Metabolic Panel; Complete Time: 21:19 [facility] 06/07 19:20 Order name: CBC with Diff; Complete Time: 20:07 [facility] 06/07 19:20 Order name: LFT's; Complete Time: 21:19 [facility] 06/07 19:20 Order name: Magnesium; Complete Time: 21:19 [facility] 06/07 19:20 Order name: NT PRO-BNP; Complete Time: 21:19 [facility] 06/07 19:20 Order name: PT-INR; Complete Time: 20:07 [facility] 06/07 19:20 Order name: Troponin HS; Complete Time: 21:19 [facility] 06/07 19:20 Order name: Lipase; Complete Time: 21:19 [facility] 06/07 20:35 Order name: UDS; Complete Time: 21:19 [facility] 06/07 21:01 Order name: Urine Dipstick-Ancillary; Complete Time: 21:19 [facility] 06/07 23:51 Order name: COVID-19 SARS RT PCR (Document "Date of Onset" if Symptomatic) [facility] 06/07 23:52 Order name: SARS-COV-2 RT PCR [facility] 06/08 04:04 Order name: CBC with Automated Diff [facility] 06/08 04:20 Order name: Comprehensive Metabolic Panel [facility] 06/07 19:20 Order name: XRAY Chest (1 view); Complete Time: 21:19 [facility] 06/07 19:20 Order name: EKG; Complete Time: 19:21 [facility] 06/07 20:33 Order name: CT Head Brain wo Cont; Complete Time: 22:29 [facility] 06/07 21:54 Order name: Abdomen [facility] 06/08 04:20 Order name: Phosphorus [facility] 06/08 04:20 Order name: Magnesium [facility] 06/08 04:23 Order name: Manual Differential [facility] 06/07 19:20 Order name: Cardiac monitoring; Complete Time: 21:02 [facility] 06/07 19:20 Order name: EKG - Nurse/Tech; Complete Time: 21:02 [facility] 06/07 19:20 Order name: IV Saline Lock; Complete Time: 19:41 [facility] 06/07 19:20 Order name: Labs collected and sent; Complete Time: : [facility] 06/07 19:20 Order name: O2 Per Protocol; Complete Time: : [facility] 06/07 19:20 Order name: O2 Sat Monitoring; Complete Time: : [facility] 06/07 19:20 Order name: Urine Dipstick-Ancillary (obtain specimen); Complete Time: 21:02 7 Administered Medications: 19:59 Drug: Phenergan (promethazine) 12.5 mg Route: IVP; Site: right antecubital; st1 19:59 Drug: Pepcid (famotidine) 20 mg Route: IVP; Site: right antecubital; st1 21:08 Drug: Ativan (LORazepam) 2 mg Route: PO; st1 22:20 Drug: AtroVENT (ipratropium) Aerosol 0.5 mg Route: Inhalation; st1 22:20 Drug: SOLU-Medrol (methylPrednisoLONE) 125 mg Route: IVP; Site: right antecubital; st1 22:21 Drug: Lasix (furosemide) 40 mg Route: IVP; Site: right antecubital; st1 22:21 Drug: Albuterol 2.5 mg Route: Inhalation; st1 Disposition Summary: 06/07/21 23:37 Hospitalization Ordered Hospitalization Status: Observation [facility] Provider: Brandon Shin Condition: Stable [facility] Problem: an acute exacerbation [facility] Symptoms: have improved [facility] Bed/Room Type: Standard [facility] Location: [facility] ER HOLD(06/08/21 01:36) Room Assignment: ERHOLD-(06/08/21 01:36) Diagnosis - COPD/ Chronic obstructive pulmonary disease with (acute) exacerbation [facility] - Acute on chronic combined systolic (congestive) and diastolic (congestive) heart [facility] failure - Nausea with vomiting, unspecified [facility] Forms: - Medication Reconciliation Form [facility] - SBAR form [facility] Signatures: Dispatcher [employer] Gracia Flores RN RN mw Holmes, Maurice, MD MD 7 Sharee Castrejon RN RN jh5 Kelsey Moreno RN RN st1 Corrections: (The following items were deleted from the chart) 21:54 20:34 Abdomen Pelvis W Con+CT.RAD.BRZ ordered. EDMS EDMS 06/08 01:36 06/07 23:37 Telemetry/MedSurg (observation) [facility] 06/08 01:36 06/07 23:37 [facility]
[2021-06-08 00:45] VITALS: BMI 35.4
[2021-06-08] MEDS ORDERED: ACETAMINOPHEN 500 MG TAB PO PRN (01:17)
[2021-06-08] MEDS ORDERED: IPRATROPIUM BROM 0.5MG/2.5ML NEB PRN (01:17)
[2021-06-08] MEDS ORDERED: ALBUTEROL 2.5 MG/3 ML NEB SOL NEB PRN (01:17)
[2021-06-08] MEDS ORDERED: ONDANSETRON 4 MG/2 ML VIAL IV PRN (01:17)
--- NOTE | 2021-06-08 02:20 | P.HP ---
Certification for Inpatient Patient admitted to: Inpatient With expected LOS: <2 Midnights Patient will require the following post-hospital care: None Practitioner: I am a practitioner with admitting privileges, knowledge of patient current condition, hospital course, and medical plan of care. Services: Services provided to patient in accordance with Admission requirements found in Title 42 Section 412.3 of the Code of Federal Regulations Patient History Date of Service: 06/07/21 Reason for admission: chf exacerbation, copd exacerbation History of Present Illness: Ms. Fleming is a 66-year-old female with history of chronic diastolic congestive heart failure, COPD on chronic home oxygen, paroxysmal atrial fibrillation, CAD, HIV, BPD, hyperlipidemia, obesity and GERD who presents with 4 days of shortness of breath, STEPHENS, orthopnea and PND. She also reports wheezing, vomiting, dizziness, weakness, palpitations. She reports mild relief of symptoms with her home nebulizer treatments. Received IV lasix, IV steroids and breathing treatments in the ED and is now resting comfortably at bedside. CXR IMPRESSION: Mild worsening in lung aeration is noted since yesterday's examination. CT HEAD IMPRESSION: No acute intracranial abnormality. Allergies fentanyl Allergy (Severe, Verified 03/31/21 11:11) Hives butorphanol tartrate [From Stadol] Allergy (Verified 03/31/21 11:11) confusion metoclopramide HCl [From Reglan] Allergy (Verified 03/31/21 11:11) Shortness of breath sulfamethoxazole [From Bactrim] Allergy (Verified 03/31/21 11:11) Hives/Rash trimethoprim [From Bactrim] Allergy (Verified 03/31/21 11:11) Hives/Rash Bactrim DS Allergy (Intermediate, Uncoded 03/31/21 11:11) Nausea/Vomiting Home Medications: Raltegravir Potassium [Isentress] 1 tab PO BID 02/28/12 Sertraline [Zoloft*] 2 tab PO DAILY 09/15/12 Metoprolol Tartrate 100 mg PO BID #60 tablet 02/03/20 Apixaban [Eliquis] 1 tab PO BID 07/30/20 Emtricitabine/Tenofov Alafenam [Descovy 200-25 mg Tablet] 1 tab PO DAILY 03/05/21 Hydralazine HCl 50 mg PO TID 03/05/21 Amlodipine Besylate 1 tab PO DAILY 03/30/21 Buspirone HCl 30 mg PO BID 03/30/21 Dexlansoprazole [Dexilant] 60 mg PO DAILY 03/30/21 Docusate/Senna [Senokot-S*] 1 tab PO DAILY PRN 03/30/21 buPROPion HCL [Bupropion Xl] 1 tab PO DAILY 04/03/21 Ferrous Sulfate [Iron] 325 mg PO DAILY 30 Days #30 tablet 04/15/21 Albuterol Inhaler [Ventolin Inhaler*] 2 puff IH TID PRN #1 05/28/21 Amiodarone HCl [Cordarone*] 200 mg PO DAILY #30 tab 05/28/21 Furosemide [Lasix] 40 mg PO DAILY #30 tablet 05/28/21 Lisinopril [Zestril] 1 tab PO DAILY #30 05/28/21 Mometasone/Formoterol [Dulera 200 Mcg/5 Mcg Inhaler] 2 puff IH BID #1 inhaler 05/28/21 Prednisone [Sterapred Ds] 10 mg PO SEECOM #21 tab 05/28/21 - Past Medical/Surgical History Has patient received pneumonia vaccine in the past: No Diabetic: No -: HIV diag ~ [address] Yohan Cardenas in [place] -: CAD -: Bipolar disorder Dr Krause in [place] -: Hypertension -: COPD on home O2 -: Tobacco abuse -: former Alcohol abuse -: Anemia likely of chronic disease -: Hyperlipidemia -: GERD with hiatal hernia -: Atrial fibrillation on chronic anticoagulation therapy -: Chronic diastolic CHF -: Appendectomy -: Cholecystectomy -: left and right shoulder rotator cuff repair -: Right foot repair -: Right shoulder replacement -: left shoulder rotated cuff -: hiatal hernia repair february 2021 -: right wrist Psychosocial/ Personal History: She lives at home. She is not . - Family History Father -: Heart disease, Hypertension, Lung disease, GI disease, Diabetes, Stroke, Liver disease, Kidney disease Mother -: Hypertension, Lung disease, GI disease, Blood disorders, Other (see notes) Notes: Epilepsy, chronic pain, leukemia - Social History Smoking Status: Never smoker Alcohol use: No CD- Drugs: No Caffeine use: Yes Review of Systems 10-point ROS is otherwise unremarkable General: Weakness, Malaise Eyes: Unremarkable ENT: Unremarkable Respiratory: Shortness of Breath, SOB with Excertion, Wheezing Cardiovascular: Palpitations, Orthopnea, Paroxysmal Noc. Dyspnea, Light Headedness Gastrointestinal: Vomiting Genitourinary: Unremarkable Musculoskeletal: Unremarkable Integumentary: Unremarkable Neurological: Unremarkable Lymphatics: Unremarkable Physical Examination - Physical Exam General: Alert, In no apparent distress HEENT: Atraumatic, PERRLA, Mucous membr. moist/pink, EOMI, Sclerae nonicteric Neck: Supple, 2+ carotid pulse no bruit, No LAD, Without JVD or thyroid abnormality Respiratory: Diminished, Expiratory wheezes Cardiovascular: No edema, Regular rate/rhythm, Normal S1 S2 Gastrointestinal: Normal bowel sounds, No tenderness Musculoskeletal: No tenderness Integumentary: No rashes Neurological: Normal speech, Normal strength at 5/5 x4 extr, Normal tone, Normal affect Lymphatics: No axilla or inguinal lymphadenopathy - Studies Laboratory Data (last 24 hrs) 06/07/21 19:40: PT 12.5, INR 1.09 06/07/21 19:40: WBC 9.70, Hgb 11.6 L, Hct 37.7, Plt Count 238 06/07/21 19:40: Sodium 139, Potassium 3.2 L, BUN 34 H, Creatinine 1.29, Glucose 129 H, Magnesium 1.9 D, Total Bilirubin 0.4, AST 23, ALT 29, Alkaline Phosphatase 81, Lipase 121 Assessment and Plan - Problems (Diagnosis) (1) CHF exacerbation Current Visit: Yes Status: Acute Qualifiers: Heart failure type: unspecified Qualified Code(s): I50.9 - Heart failure, unspecified (2) COPD exacerbation Current Visit: No Status: Acute (3) Depressive disorder Onset Date: 05/26/15 Current Visit: No Status: Chronic (4) HIV (human immunodeficiency virus infection) Current Visit: No Status: Chronic Qualifiers: HIV symptom status: unspecified Qualified Code(s): B20 - Human immunodeficiency virus [HIV] disease (5) Atrial fibrillation Current Visit: No Status: Chronic Qualifiers: Atrial fibrillation type: unspecified Qualified Code(s): I48.91 - Unspecified atrial fibrillation (6) Bipolar disorder Onset Date: 05/26/15 Current Visit: No Status: Chronic Qualifiers: (7) Hypertension Onset Date: 05/26/15 Current Visit: No Status: Chronic Qualifiers: Hypertension type: primary hypertension Qualified Code(s): I10 - Essential (primary) hypertension - Plan continue O2 as needed continue breathing treatments and steroids continue IV lasix, low sodium diet, fluid restriction and daily weights potassium replacement protocol reconcile and continue home medications Discharge Plan: Home Plan to discharge in: 48 Hours - Advance Directives Does patient have a Living Will: No Does patient have a Durable POA for Healthcare: No - Code Status/Comfort Care Code Status Assessed: Yes (full code ) Critical Care: No Time Spent Managing Pts Care (In Minutes): 70
[2021-06-08 03:47] LABS: Absolute Lymphocytes (CBC) 0.7 K/uL (0.7-4.9); Lymphocytes % 8.5 % (15.3-44.8); MPV 7.3 fL (7.6-11.3)
[2021-06-08 04:20] LABS: Bilirubin Total 0.4 mg/dL (0.2-1.0); Phosphorus 2.7 mg/dL (2.5-4.9); Potassium 3.3 mmol/L (3.5-5.1); Protein, Total 7.4 g/dL (6.4-8.2)
[2021-06-08 04:22] LABS: Blood Morphology Comment NOT SEEN (NOT SEEN); Platelet Estimate ADEQ
[2021-06-08] MEDS ORDERED: AMIODARONE HCL 200 MG TAB ONE (07:52)
[2021-06-08] MEDS ORDERED: METOPROLOL TAR 50 MG TAB ONE (07:52)
[2021-06-08] MEDS ORDERED: HYDRALAZINE HCL 25 MG TABLET ONE ×2 (07:53→15:18)
[2021-06-08] MEDS ORDERED: APIXABAN 5 MG TABLET ONE (07:53)
[2021-06-08] MEDS ORDERED: AMLODIPINE 10 MG TAB ONE (07:53)
[2021-06-08] MEDS ORDERED: predniSONE 20 MG TAB ONE (08:02)
[2021-06-08] MEDS ORDERED: lisinopriL 20 MG TAB ONE (08:03)
[2021-06-08] MEDS: HYDRALAZINE HCL 25 MG TABLET PO SCH ×2 (08:18→15:21)
[2021-06-08] MEDS ORDERED: lisinopriL 20 MG TAB PO SCH (09:00)
[2021-06-08] MEDS ORDERED: METOPROLOL TAR 50 MG TAB PO SCH (09:00)
[2021-06-08] MEDS ORDERED: AMIODARONE HCL 200 MG TAB PO SCH (09:00)
[2021-06-08] MEDS ORDERED: EMTRICITABINE PO SCH (09:00)
[2021-06-08] MEDS ORDERED: FERROUS SULFATE 325 MG TAB PO SCH (09:00)
[2021-06-08] MEDS ORDERED: TENOFOV ALAFENAM PO SCH (09:00)
[2021-06-08] MEDS ORDERED: RALTEGRAVIR POTASSIUM 400 MG TABLET PO SCH (09:00)
[2021-06-08] MEDS ORDERED: BUSPIRONE HCL 15 MG TABLET PO SCH (09:00)
[2021-06-08] MEDS ORDERED: BUPROPION HCL XL 150 MG TAB PO SCH (09:00)
[2021-06-08] MEDS ORDERED: APIXABAN 5 MG TABLET PO SCH (09:00)
[2021-06-08] MEDS ORDERED: predniSONE 20 MG TAB PO SCH (09:00)
[2021-06-08] MEDS ORDERED: AMLODIPINE 10 MG TAB PO SCH (09:00)
[2021-06-08] MEDS ORDERED: SERTRALINE HCL 100 MG TAB PO SCH (09:00)
[2021-06-08] MEDS ORDERED: ALBUTEROL 2.5 MG/3 ML NEB SOL ONE (09:11)
[2021-06-08] MEDS ORDERED: FUROSEMIDE 40 MG/4 ML VIAL ONE ×2 (09:11→17:59)
[2021-06-08] MEDS: FUROSEMIDE 40 MG/4 ML VIAL IV SCH ×2 (09:30→17:59)
--- NOTE | 2021-06-08 12:24 | RAD REPORT ---
EXAM DESCRIPTION: CT - Abdomen Pelvis Wo Contrast - 06/08/2021 6:47 am CLINICAL HISTORY: 66 years Female NAUSEA / VOMITING COMPARISON: None TECHNIQUE: Images were obtained in axial, sagittal, and coronal planes. No intravenous contrast was administered. This exam was performed according to our departmental dose-optimization program which includes use of Automated Exposure Control, adjustment of the mA and/or kV according to patient size and/or use o f iterative reconstruction technique. FINDINGS: No abnormality involving the liver prominence only, pancreas, or adrenal glands bilaterall y. Prior cholecystectomy. No obstructing renal or ureteral calculi bilaterally. No hydronephrosis bilaterally. Bilateral renal cysts. Appendix not well identified however no secondary signs for appendicitis. No bowel obstruction, perfo ration, or inflammation. Calcification of abdominal aorta with no dilatation seen. No adenopathy or abnormal fluid collections seen. Ill-defined airspace attenuation lung patel bilaterally consistent with bilateral infiltrates. No acute osseous abnormality. IMPRESSION: No acute intra-abdominal abnormality. Infiltrate and atelectatic change lower lungs bilaterally suspicious for inflammatory process possibl y viral etiology. Electronically signed by: Shonna Campbell MD 06/07/2021 10:23 PM DIRECTOR OF EARLY CHILDHOOD Due to temporary technical issues with the PACS/Fluency reporting system, reports are being signed by the in house radiologist without review as a courtesy to ensure prompt reporting. The interpreting r adiologist is fully responsible for the content of the report.
[2021-06-08] MEDS ORDERED: HYDROMORPHONE HCL 1 MG/ML INJ IV ONE (15:00)
[2021-06-08] MEDS ORDERED: HYDROMORPHONE HCL 1 MG/ML INJ ONE (15:17)
[2021-06-08 15:25] VITALS: TEMP 98.4
[2021-06-08 16:54] VITALS: O2SAT 100
--- NOTE | 2021-06-08 17:42 | P.DS ---
Admission Date: 06/08/21 Discharge Date: 06/08/21 Disposition: DC HOME/HOME HEALTH CARE Discharge Condition: FAIR Reason for Admission: chf exacerbation, copd exacerbation - Problems (1) Acute on chronic diastolic heart failure Current Visit: Yes Status: Acute (2) Back pain of lumbar region with sciatica Current Visit: No Status: Acute (3) COPD exacerbation Current Visit: No Status: Acute Brief History of Present Illness: Ms. Fleming is a 66-year-old female with history of chronic diastolic congestive heart failure, COPD on chronic home oxygen, paroxysmal atrial fibrillation, CAD, HIV, BPD, hyperlipidemia, obesity and GERD who presents with 4 days of shortness of breath, STEPHENS, orthopnea and PND. She also reports wheezing, vomiting, dizziness, weakness, palpitations. She reports mild relief of symptoms with her home nebulizer treatments. Received IV lasix, IV steroids and breathing treatments in the ED and is now resting comfortably at bedside. Patient hospitalized for further management. Chest x-ray: Mild worsening in lung aeration is noted since yesterday's examination. Hospital Course: Patient placed under observation on the medical floor and treated for CHF exacerbation with IV Lasix. She was also treated for COPD exacerbation with IV steroids and bronchodilators. Patient respiratory status improved with treatment. Her oxygen saturation was 100% on her baseline oxygen. She has chronic pain for which she was given a dose of Dilaudid. She has improved to baseline and deemed stable for discharge. Vital Signs/Physical Exam: Temp Pulse Resp BP Pulse Ox 98.4 F 77 19 166/76 H 100 06/08/21 15:20 06/08/21 15:20 06/08/21 15:22 06/08/21 15:20 06/08/21 15:22 General: Alert, In no apparent distress, Oriented x3 HEENT: Mucous membr. moist/pink Neck: JVD not distended Respiratory: Clear to auscultation bilaterally, Normal air movement Cardiovascular: No edema, Regular rate/rhythm, Normal S1 S2 Gastrointestinal: Soft and benign, Non-distended, No tenderness Musculoskeletal: No swelling Integumentary: No cyanosis Neurological: Normal strength at 5/5 x4 extr Laboratory Data at Discharge: WBC 8.70 K/uL (4.3-10.9) 06/08/21 03:13 Hgb 11.5 g/dL (12.0-15.0) L 06/08/21 03:13 Hct 37.0 % (36.0-45.0) 06/08/21 03:13 Plt Count 232 K/uL (152-406) 06/08/21 03:13 PT 12.5 SECONDS (9.5-12.5) 06/07/21 19:40 INR 1.09 06/07/21 19:40 Sodium 138 mmol/L (136-145) 06/08/21 03:13 Potassium 3.3 mmol/L (3.5-5.1) L 06/08/21 03:13 BUN 28 mg/dL (7-18) H 06/08/21 03:13 Creatinine 1.28 mg/dL (0.55-1.3) 06/08/21 03:13 Glucose 233 mg/dL (74-106) H 06/08/21 03:13 Phosphorus 2.7 mg/dL (2.5-4.9) 06/08/21 03:13 Magnesium 2.0 mg/dL (1.8-2.4) 06/08/21 03:13 Total Bilirubin 0.4 mg/dL (0.2-1.0) 06/08/21 03:13 AST 20 U/L (15-37) 06/08/21 03:13 ALT 28 U/L (12-78) 06/08/21 03:13 Alkaline Phosphatase 85 U/L (45-117) 06/08/21 03:13 Lipase 121 U/L (73-393) 06/07/21 19:40 Home Medications: Raltegravir Potassium [Isentress] 1 tab PO BID 02/28/12 Sertraline [Zoloft*] 2 tab PO DAILY 09/15/12 Metoprolol Tartrate 100 mg PO BID #60 tablet 02/03/20 Apixaban [Eliquis] 1 tab PO BID 07/30/20 Emtricitabine/Tenofov Alafenam [Descovy 200-25 mg Tablet] 1 tab PO DAILY 03/05/21 Hydralazine HCl 50 mg PO TID 03/05/21 Amlodipine Besylate 1 tab PO DAILY 03/30/21 Buspirone HCl 30 mg PO BID 03/30/21 Dexlansoprazole [Dexilant] 60 mg PO DAILY 03/30/21 Docusate/Senna [Senokot-S*] 1 tab PO DAILY PRN 03/30/21 buPROPion HCL [Bupropion Xl] 1 tab PO DAILY 04/03/21 Ferrous Sulfate [Iron] 325 mg PO DAILY 30 Days #30 tablet 04/15/21 Albuterol Inhaler [Ventolin Inhaler*] 2 puff IH TID PRN #1 05/28/21 Amiodarone HCl [Cordarone*] 200 mg PO DAILY #30 tab 05/28/21 Lisinopril [Zestril] 1 tab PO DAILY #30 05/28/21 Mometasone/Formoterol [Dulera 200 Mcg/5 Mcg Inhaler] 2 puff IH BID #1 inhaler 05/28/21 Prednisone [Sterapred Ds] 10 mg PO SEECOM #21 tab 05/28/21 Furosemide [Lasix] 40 mg PO BID #60 tablet 06/08/21 predniSONE [Prednisone*] 20 mg PO BID #10 tab 06/08/21 New Medications: Furosemide [Lasix] 40 mg PO BID #60 tablet predniSONE [Prednisone*] 20 mg PO BID #10 tab Diet: AHA Activity: Ad pricila Followup: Lacey VARELA,Lele Peterson DO [Primary Care Provider] - 1-2 Weeks
[2021-06-08 18:13] VITALS: BP 169/94
--- NOTE | 2021-06-10 07:34 | EKG ---
Test Date: 2021-06-07 Test Time: 19:50:28 Highway Commissioner: ST MEASUREMENT RESULTS: Intervals: Rate: 70 MA: 116 QRSD: 80 QT: 422 QTc: 455 [place]: P: 24 MA: 116 QRS: 6 T: 73 INTERPRETIVE STATEMENTS: Normal sinus rhythm Left ventricular hypertrophy with repolarization abnormality Abnormal ECG Compared to ECG 06/06/2021 11:19:02 No significant changes Electronically Signed On 06-10-21 07:26:55 [employer] by Per Crane
== END 2021-06-08 19:05 | disposition home health service (06) | DRG 291 ==
LOC: ER 18:41 → ERHOLD 06-08 00:24
PROVIDERS: ADMIT Internal Medicine; ATTEND Internal Medicine
DX: I11.0 Hypertensive heart disease with heart failure (principal); I50.33 Acute on chronic diastolic (congestive) heart failure; J44.1 Chronic obstructive pulmonary disease with (acute) exacerbation; M54.40 Lumbago with sciatica, unspecified side; I48.0 Paroxysmal atrial fibrillation; I25.10 Atherosclerotic heart disease of native coronary artery without angina pectoris; E78.5 Hyperlipidemia, unspecified; Z21 Asymptomatic human immunodeficiency virus [HIV] infection status; E66.9 Obesity, unspecified; Z68.35 Body mass index [BMI] 35.0-35.9, adult; K21.9 Gastro-esophageal reflux disease without esophagitis; F31.9 Bipolar disorder, unspecified; Z99.81 Dependence on supplemental oxygen; Z79.01 Long term (current) use of anticoagulants; Z20.822 Contact with and (suspected) exposure to COVID-19
CPT/HCPCS: 0240U; 36415; 70450; 71045; 74176; 80048; 80053; 80076; 80307; 81003; 83690; 83735; 83880; 84100; 84484; 85025; 85610; 93005; 94760; 96374; 96375; 99284; 99285; J1170; J1940; J2405; J2550; J2930; J7512; J8597; U0003

== ENCOUNTER 2021-06-10 10:29 | Emergency (ER) | payer OTHER ==
--- OUTSIDE RECORDS SUMMARY | 2021-06-10 10:39 | XMS REPORT | Continuity of Care Document ---
:1955 Author Organization [facility] t Address [address] [place] [address] Care Team Providers Name Role Phone MURPHY Primary Care Physician Unavailable Ashely Attending Clinician Unavailable HEMATPOUR Attending Clinician Unavailable RONALD Attending Clinician Unavailable Ronald DHILLON Attending Clinician Prabhu SANCHEZ Attending Clinician Unavailable Emerald Maharaj NP. Attending Clinician Yazmin JENKINS Attending Clinician [facility] Attending Clinician Unavailable Marika Bal Attending Clinician [...] Number Effective Date Expiration Date S gabino [facility] PLAN [id number] 2012 ST[employer] PLUS OON 00:00:00 [facility] DUAL [id number] 2020 COMP HMO D SNP 00:00:00 [place]ICAID [place] [id number] 2020 00:00:00 Problems Condition Condition Condition Status Onset Resolution Last Treating Co mments Source Name Details Category Date Date Treatment Clinician Date Gastropare Gastropare Disease Active Overview : Methodi sis sis 4-[address] 00:00: [facility] 00 note l might be different from the original. Added automatic ally from request for surgery [id number] Dysphagia Dysphagia Disease Active Overview: Methodi 4-[address] 00:00: [facility] of this [facility] 00 note l might be different from the original. 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 00:00: [place] virus virus 00 Medical (HIV) (HIV) Branch disease disease Bipolar 2 Bipolar 2 Disease Active Uni vers disorder disorder 11-18 ity of 00:00: Medical Branch Chronic Chronic Disease Active Univers hepatitis hepatitis 11-18 ity of C C 00:00: [place] [facility] Hypertensi Hypertensi Disease Active U [...] 00 Medical Branch TRIMETHO DRUG Active Hives 2018-0 Univers PRIM INGREDI 2-08 ity of 00:00: [place] [facility] Fentanyl Drug Active Other - See Unknown Un matt Allergy comments 06-30 reaction ity o f 00:00: [place] 00 Medical Branch Trimetho Propensi Active Hives 2017- Univer s prim ty to 08 ity of adverse 00:00: [place] reaction 00 [...] High Unknown-Cmnt 2015-05 Un matt HOXAZOLE INGREDI 2- ity of 00:00: [place] 00 Medical Branch Sulfamet Propensi Active Other - See 2015-05 Stomach Univers hoxazole ty to comments 2 pain ity of adverse 00:00: [place] reaction 00 Medical s Branch Sulfamet Propensi Active Rash 2015-05 Method i hoxazole ty to 06-24 st adverse 00:00: Hospita reaction 00 l s to drug METOCLOP DRUG Active Anxiety Univers RAMIDE INGREDI - ity of HCL 00:00: [place] 00 Medical Branch Metoclop Propensi Active Anxiety Unive rs ramide ty to 925 ity of Hcl adverse 00:00: [place] reaction [...] Date Source Natural father Diabetes [facility] Natural father Other - see comments [facility] Natural father Kidney disease Method ist [facility] Natural mother Cancer [facility] Social History Social Habit Start Date Stop Date Quantity Comments Source History of tobacco Smoker Method ist use Hospital History [facility] Health Alcohol Comment History [facility] Health Alcohol Std Drinks History [facility] Alcohol Binge Exposure to Not sure [facility] SARS-CoV-2 (event) Alcohol intake 2021-02-23 2021-02-23 Ex-drinker [facility] 00:00:00 00:00:00 (finding) Cigarettes smoked 2020-12-08 2020-12-[address] current (pack per 00:00:00 00:00:00 Hospita l day) - Reported Cigarette 2020-12-08 2020-12-08 [facility] pack-years 00:00:00 00:00:00 Hospital Tobacco use and 2020-10-31 2020-10-31 Smokeless tobacco [facility] exposure 00:00:00 00:00:00 non-user History SDOH 2020-10-31 2020-10-31 1 [facility] Alcohol Frequency 00:00:00 00:00:00 Tobacco Comment 2015-02-14 2015-02-14 Smokes approx 1-2 Un iversity of 00:00:00 00:00:00 cigarettes per [place] [facility] day when she Branch smokes Sex Ass[birth year] At [birth year] [facility] 00:00:00 00:00:00 Smoking Status Start Date Stop Date Source Ex-smoker 2020-10-31 00:00:00 2020-10-31 [facility]:00 [facility] Medications Ordered Filled Start Stop Current Ordering Indication Dosage Frequency Signature Comments Components Source Medication Medication Date Date Medication? Clinician (SIG) Name Name raltegravir Yes [id number] 400mg Take 1 Univers (ISENTRESS) 1-12 tablet by ity of 400 mg 00:00: mouth 2 [place] tablet 00 (two) Medical times Branch daily. LORazepam 1 2021- Yes [id number] 1mg Take 1 Univers mg tablet 05-25-25 tablet by ity of 00:00: 05:59 mouth 3 [place] 00 :00 (three) Medical times Branch daily as needed (anxiety) for up to 21 days. LORazepam 2021- Yes [id number] 1mg Take 1 Univers mg tablet 05-25-25 tablet by ity of 00:00: 05:59 mouth 3 [place] 00 :00 (three) Medical times Branch daily as needed (anxiety) for up to 21 days. SERTraline 2020-05 Yes [id number] 200mg Take 2 Univers 100 mg 2-21 tablets by ity of tablet 00:00: mouth [place] 00 daily. Medical Branch busPIRone 2020-05 Yes [id number] 30mg Take 1 Un matt 30 mg 2-21 tablet by ity of tablet 00:00: mouth 2 [place] 00 (two) Medical times Branch daily. buPROPion 2020-05 Yes [id number] 150mg Take 1 U nivers XL 2-21 tablet by ity of (WELLBUTRIN 00:00: mouth [place] XL) 150 mg 00 daily. Medical 24 hr Branch tablet SERTraline 2020-05 Yes [id number] 200mg Take 2 Univers 100 mg 2-21 tablets by ity of tablet 00:00: mouth [place] 00 daily. Medical Branch busPIRone 2020-05 Yes [id number] 30mg Take 1 Un matt 30 mg 2-21 tablet by ity of tablet 00:00: mouth 2 [place] 00 (two) Medical times Branch daily. buPROPion 2020-05 Yes [id number] 150mg Take 1 U nivers XL 2-21 tablet by ity of (WELLBUTRIN 00:00: mouth [place] XL) 150 mg 00 daily. Medical 24 hr Branch tablet LORazepam 2 2020-05- No [id number] 2mg Take 1 Univers mg tablet 06-28 tablet by ity of 00:00: 00:00 mouth 2 [place] 00 :00 (two) Medical times Branch daily as needed (anxiety). raltegravir Yes [id number] 400mg Take 1 Univers (ISENTRESS) 9-24 tablet by ity of 400 mg 00:00: mouth 2 [place] tablet 00 (two) Medical times Branch daily. raltegravir 2021- No [id number] 400mg Take 1 Univers (ISENTRESS) 9-24 - tablet by it y of 400 mg 00:00: 00:00 mouth 2 [place] tablet 00 :00 (two) Medical times Branch daily. buPROPion 2020- No [id number] 150mg Take 1 Univers XL 01-28 12-21 tablet by ity of (WELLBUTRIN 00:00: 00:00 [place] XL) 150 mg 00 :00 daily. Medical 24 hr Branch tablet SERTraline 2020- No [id number] 200mg Take 2 Univers 100 mg 01-28 12-21 tablets by ity of tablet 00:00: 00:00 mouth [place] 00 :00 daily. Medical Branch busPIRone 2020- No [id number] 30mg Take 1 U nivers 30 mg 8-30 -21 tablet by ity of tablet 00:00: 00:00 mouth 2 [place] 00 :00 (two) Medical times Branch daily. metoprolol 2021- No [id number] Take 1 [facility] tartrate 12-15 tablet Health (Lopressor) 00:00: 05:59 (100 mg 100 MG 00 :00 total) by tablet mouth 2 (two) times a day AND 0.5 tablets (50 mg total) every night. metoprolol 2021- No [id number] Take 1 [facility] tartrate 7-26 01-23 tablet [...] area in groin) hydrALAZINE 2020-0 Yes 50mg Q.[id number] Take 50 mg Methodi (APRESOLINE 7-[id number] mouth [address] ) 50 MG [...] Hospita tablet 25 daily. l nystatin-tr Yes [id number] Apply to [facility] 11-25 area(s) 3 ity of cream 00:00: (three) [place] 00 times Medical daily. Branch emtricitabi Yes [id number] Take one Univers ne-tenofovi 7-06 po daily ity of r alafen 00:00: [place] (DESCOVY) 00 Medical tablet Branch nystatin-tr Yes [id number] [facility] area[facility] 3 ity of cream 00:00: (three) [place] 00 times Medical daily. Branch emtricitabi Yes [id number] Take one Univers ne-tenofovi 7-06 po daily ity of r alafen 00:00: [place] (DESCOVY) 00 Medical tablet Branch budesonide- 2020- No 1{puff} QD Inhale 1 Methodi formoteroL 11-[address] (SYMBICORT) 19:37: 00:00 morning. H ospita 160-4.5 02 :00 l mcg/actuati on inhaler hydrALAZINE Yes [id number] 50mg Q.[id number] Take 1 UT (Apresoline 10-31 [id number] tablet (50 Health ) 50 MG 00:00: 3D mg total) tablet 00 by mouth 3 (three) times a day. hydrALAZINE 2020- No [id number] 50mg Q.[id number] Take 1 UT (Apresoline 10-31 [id number] tablet (50 Health ) 50 MG 00:00: 04:59 3D mg total) tablet 00 :00 by mouth 3 (three) times a day. hydrALAZINE 2020- No [id number] 50mg Q.[id number] Take 1 UT (Apresoline 10-31 [id number] tablet (50 Health ) 50 MG 00:00: 04:59 3D mg total) tablet 00 :00 by mouth 3 (three) times a day. hydrALAZINE 2020- No [id number] 50mg Q.[id number] Take 1 UT (Apresoline 10-31 [id number] tablet (50 Health ) 50 MG 00:00: 04:59 3D mg total) tablet 00 :00 by mouth 3 (three) times a day. hydrALAZINE 2020- No [id number] 50mg Q.[id number] Take 1 UT (Apresoline 10-31 [id number] tablet (50 Health ) 50 MG 00:00: 04:59 3D mg total) tablet 00 :00 by mouth 3 (three) times a day. Breztri Yes [facility] Aerosphere 10-29 Health 160-9-4.8 00:00: MCG/ACT 00 aerosol Breztri Yes [facility] Aerosphere 6-09 Health 160-9-4.8 00:00: [...] 00:00: tablet 00 mupirocin Yes [facility] (Bactroban) 5 Health 2 % 00:00: ointment 00 mupirocin Yes UT (Bactroban) 10-17 Health 2 % 00:00: ointment 00 mupirocin 0 Yes UT (Bactroban) 10-17 Health 2 % 00:00: ointment 00 mupirocin 0 Yes UT (Bactroban) 10-17 Health 2 % 00:00: ointment 00 mupirocin 0 Yes UT (Bactroban) 10-17 Health 2 % 00:00: ointment 00 nystatin 2020- No [id number] Q.25D Take 5 mL Methodi (MYCOSTATIN 10-0601 (500,000 st ) 100,000 00:00: 04:59 Units [...] ia 4-10 (Same as: l 14:00: Cordarone) [place] 00 Amlodipine No Notes: Memor ia 4-10 (Same as: l 14:00: Norvasc) [place] 00 emtricitabi No Notes: Caesar lisa ne 200 MG / 4-10 (Same as: l tenofovir 14:00: Descovy) Herm ariel alafenamide 00 Non-formul 25 MG Oral nancy Tablet [Descovy] Sertraline No Notes: Memor ia 4-10 (Same as: l 14:00: Zoloft) Marty 00 Sertraline No Notes: Memor ia 4-10 (Same as: l 14:00: Zoloft) [place] 00 pantoprazol No Notes: Caesar lisa e 4-10 Tablet l 14:00: should not [place] 00 be chewed or crushed. (Same as: [...] ia 4-10 (Same as: l 14:00: Zoloft) [place] 00 pantoprazol No Notes: [place] lisa e [...] e 4-10 Tablet l 14:00: should not [place] 00 be chewed or crushed. (Same as: [...] ia 4-10 (Same as: l 14:00: Norvasc) [place] 00 emtricitabi No Notes: [place] lisa ne 200 MG / 4-10 (Same as: l tenofovir 14:00: Descovy) Herm ariel alafenamide 00 Non-formul 25 MG Oral nancy Tablet [Descovy] Sertraline No Notes: Memor ia 4-10 (Same as: l 14:00: Zoloft) pantoprazol No Notes: [place] lisa e 4-10 Tablet l 14:00: should not [place] 00 be chewed or crushed. (Same as: [...] e 4-10 Tablet l 14:00: should not [place] 00 be chewed or crushed. (Same as: [...] Memoria 4-10 Same as: l 02:00: Eliquis [place] Hydralazine No Notes: Caesar lisa Hydrochlori 4-10 (Same as: l de 50 MG 02:00: Apresoline Her mitchell Oral Tablet 00 ) May interfere w/enteral feedings Take With Food Sucralfate No Notes: May M emoria 4-10 interfere l 02:00: w/enteral [place] 00 feeds - Take 1 hr before or 2 hr after antacids, dairy pdt, meals & minerals - On empty stomach. For patients unable to swallow tablet, dissolve in 10mL - 30mL of water or juice and stir before giving. (Same As: Carafate) Saline No Notes: Memoria Flush 0.9% 4-10 (Same as: l 02:00: BD [place] 00 Posiflush) Eliquis No Notes: Memoria 4-10 Same as: l 02:00: Eliquis [place] Hydralazine No Notes: Caesar lisa Hydrochlori 4-10 [...] 0.9% 4-10 (Same as: l 02:00: BD [place] Posiflush) Eliquis No Notes: Memoria 4-10 Same as: l 02:00: Eliquis [place] Hydralazine No Notes: Caesar lisa Hydrochlori 4-10 [...] M emoria 4-10 interfere l 02:00: w/enteral [place] 00 feeds - Take 1 hr before or 2 hr after antacids, dairy pdt, meals & minerals - On empty stomach. For patients unable to swallow tablet, dissolve in 10mL - 30mL of water or juice and stir before giving. (Same As: Carafate) Saline No Notes: Memoria Flush 0.9% 4-10 (Same as: l 02:00: BD [place] Posiflush) Eliquis No Notes: Memoria 4-10 Same [...] not exceed l #3 00:12: 4gm/day of [place] acetaminop hen. (Same as: Tylenol with Codeine # 3) acetaminoph No Notes: Do M emoria en-codeine 4-10 not exceed l #3 00:12: 4gm/day of [place] acetaminop hen. (Same as: Tylenol with Codeine [...] l Tablet 22:00: [facility]: [facility] Drug form: TAB, BID, Dosing Weight [...] oria 4- tab, l 22:00: Route: PO, [place] 00 Drug form: TAB, BID, Dosing Weight [...] l Tablet 22:00: [facility]: [facility] Drug form: TAB, BID, Dosing Weight 97.273, kg, Start date: 08/29/20 17:00:00 CDT, Duration: 30 day, Stop date: 09/28/20 9:00:00 CDT, 0 Buspirone 2020-0 No Notes: Memori a 08-29 (Same As: l 22:00: BuSpar) Lisinopril 2020-0 No 40 mg, 1 Mem oria - tab, l 22:00: Route: PO, [place] 00 Drug form: TAB, BID, Dosing Weight [...] tartrate 4-09 tab, l 22:00: Route: PO, [place] 00 Drug form: TAB, BID, Dosing Weight [...] tartrate 4-09 tab, l 22:00: Route: PO, [place] 00 Drug form: TAB, BID, Dosing Weight [...] Notes: Memoria 4-09 (Same l 17:07: as:MORPhin [place] 00 e Sulfate) Morphine No Notes: Memoria 4-09 (Same l 17:07: as:MORPhin [place] 00 e Sulfate) Morphine No Notes: Memoria 4-09 (Same l 17:07: as:MORPhin [place] 00 e Sulfate) Morphine No Notes: Memoria 4-09 (Same l 17:07: as:MORPhin [place] 00 e Sulfate) Morphine No Notes: Memoria 4-09 (Same l 17:07: as:MORPhin [place] 00 e Sulfate) Morphine No Notes: Memoria 4-09 (Same l 17:07: as:MORPhin [place] 00 e Sulfate) Morphine No Notes: Memoria 4-09 (Same l 17:07: as:MORPhin [place] 00 e Sulfate) buPROPion No 150 mg, [...] day, Stop date: 09/27/20 11:00:00 CDT, 0 neostigmine No Route: IV, Memoria (ANES) 08-29 [...] 30 tab, 0 coated Refill(s), tablet Pharmacy: [facility], 162.56, cm, 08/29/20 5:30:00 CDT, Height, 97.273, kg, 08/29/20 5:30:00 CDT, Weight pantoprazol 2021-0 Yes 40 mg = 1 M emoria e 40 mg 4-09 tab, PO, l oral 15:27: Daily, # Marty enteric 00 30 tab, 0 coated Refill(s), tablet Pharmacy: [facility], 162.56, cm, 08/29/20 5:30:00 CDT, Height, 97.273, kg, 08/29/20 5:30:00 CDT, Weight pantoprazol 2021-0 Yes 40 mg = 1 M emoria e 40 mg 4-09 tab, PO, l oral 15:27: Daily, # [place] enteric 00 30 tab, 0 coated Refill(s), tablet Pharmacy: [facility], 162.56, cm, 08/29/20 5:30:00 CDT, Height, 97.273, kg, 08/29/20 5:30:00 CDT, Weight pantoprazol 2021-0 Yes 40 mg = 1 M emoria e 40 mg 4-09 tab, PO, l oral 15:27: Daily, # [place] enteric 00 30 tab, 0 coated Refill(s), tablet Pharmacy: [facility], 162.56, cm, 08/29/20 5:30:00 CDT, Height, 97.273, kg, 08/29/20 5:30:00 CDT, Weight pantoprazol 2021-0 Yes 40 mg = 1 M emoria e 40 mg 4-09 tab, PO, l oral 15:27: Daily, # [place] enteric 00 30 tab, 0 coated Refill(s), tablet Pharmacy: [facility], 162.56, cm, 08/29/20 5:30:00 CDT, Height, 97.273, kg, 08/29/20 5:30:00 CDT, Weight pantoprazol 2021-0 Yes 40 mg = 1 M emoria e 40 mg 4-09 tab, PO, l oral 15:27: Daily, # [place] enteric 00 30 tab, 0 coated Refill(s), tablet Pharmacy: [facility], 162.56, cm, 08/29/20 5:30:00 CDT, Height, 97.273, kg, 08/29/20 5:30:00 CDT, Weight pantoprazol 2020-0 Yes 40 mg = 1 M emoria e 40 mg 4-09 tab, PO, l oral 15:27: Daily, # [place] enteric 00 30 tab, 0 coated Refill(s), tablet Pharmacy: [facility], 162.56, cm, 08/29/20 5:30:00 CDT, [...] Skylar nn 00 tab, 0 Refill(s), Pharmacy: [place] [id number], 162.56, cm, 08/29/20 5:30:00 CDT, Height, 97.273, kg, 08/29/20 5:30:00 CDT, Weight pantoprazol 2020-0 No 40 mg = 1 M emoria e 40 mg 4-09 tab, PO, l oral 15:26: Daily, # [place] enteric 00 30 tab, 0 coated Refill(s) tablet sucralfate 2020-0 Yes 1 gm = 1 Mem oria 1 g oral 4-09 tab, PO, l tablet 15:26: Q12H, # 28 Skylar nn 00 tab, 0 Refill(s), Pharmacy: [facility], 162.56, cm, 08/29/20 5:30:00 CDT, [...] Skylar nn 00 tab, 0 Refill(s), Pharmacy: [facility], 162.56, cm, 08/29/20 5:30:00 CDT, Height, 97.273, kg, 08/29/20 5:30:00 CDT, Weight pantoprazol 2020-0 No 40 mg = 1 M emoria e 40 mg 4-09 tab, PO, l oral 15:26: Daily, # [place] enteric 00 30 tab, 0 coated Refill(s) tablet sucralfate 2020-0 Yes 1 gm = 1 Mem oria 1 g oral 4-09 tab, PO, l tablet 15:26: Q12H, # 28 Skylar nn 00 tab, 0 Refill(s), Pharmacy: [facility], 162.56, cm, 08/29/20 5:30:00 CDT, Height, 97.273, kg, 08/29/20 5:30:00 CDT, Weight pantoprazol 2020-0 No 40 mg = 1 M emoria e 40 mg 4-09 tab, PO, l oral 15:26: Daily, # [place] enteric 00 30 tab, 0 coated Refill(s) tablet sucralfate 2020-0 Yes 1 gm = 1 Mem oria 1 g oral 4-09 tab, PO, l tablet 15:26: Q12H, # 28 Skylar nn 00 tab, 0 Refill(s), Pharmacy: [facility], 162.56, cm, 08/29/20 5:30:00 CDT, [...] Skylar nn 00 tab, 0 Refill(s), Pharmacy: [facility], 162.56, cm, 08/29/20 5:30:00 CDT, Height, 97.273, kg, 08/29/20 5:30:00 CDT, Weight pantoprazol No 40 mg = 1 M emoria e 40 mg 4-09 tab, PO, l oral 15:26: Daily, # [place] enteric 00 30 tab, 0 coated Refill(s) tablet sucralfate Yes 1 gm = 1 Mem oria 1 g oral 4-09 tab, PO, l tablet 15:26: Q12H, # 28 Skylar nn 00 tab, 0 Refill(s), Pharmacy: [facility], 162.56, cm, 08/29/20 5:30:00 CDT, [...] 0.9% 4-09 (Same as: l 15:25: BD [place] 00 Posiflush) Saline No Notes: Memoria Flush 0.9% 4-09 (Same as: l 15:25: BD [place] 00 Posiflush) Lorazepam No Notes: Memori a 4-09 (Same as: l 15:25: Ativan) [place] Lorazepam No Notes: Memori a 4-09 (Same as: l 15:25: Ativan) [place] Saline 2021-0 No Notes: Memoria Flush 0.9% 4-09 (Same as: l 15:25: BD [place] Posiflush) Lorazepam No Notes: Memori a 4-09 (Same as: l 15:25: Ativan) [place] 00 Saline No Notes: Memoria Flush 0.9% 4-09 (Same as: l 15:25: BD [place] Posiflush) Lorazepam No Notes: Memori a 4-09 (Same as: l 15:25: Ativan) Marty Saline No Notes: Memoria Flush 0.9% 4-09 (Same as: l 15:25: BD [place] Posiflush) Lorazepam No Notes: Memori a 4-09 (Same as: l 15:25: Ativan) Isuprel HCl No Route: IV, Memoria (ANES) 0.2 08-29 Drug form: l mg + 15:00: INJ, Marty Dosing Weight 97.3, kg, Start date: 08/29/20 10:00:00 CDT, Stop date: 08/29/20 11:00:00 CDT Isuprel HCl No Route: IV, Memoria (ANES) 0.2 08-29 Drug form: l mg + 15:00: INJ, [place] Dosing Weight 97.3, kg, Start date: 08/29/20 10:00:00 CDT, Stop date: 08/29/20 11:00:00 CDT Isuprel HCl No Route: IV, Memoria (ANES) 0.2 08-29 Drug form: l mg + 15:00: INJ, Marty Dosing Weight 97.3, kg, Start date: 08/29/20 10:00:00 CDT, Stop date: 08/29/20 11:00:00 CDT Isuprel HCl No Route: IV, Memoria (ANES) 0.2 08-29 Drug form: l mg + 15:00: INJ, [place] Dosing Weight 97.3, kg, Start date: 08/29/20 10:00:00 CDT, Stop date: 08/29/20 11:00:00 CDT Isuprel HCl 2020-0 No Route: IV, Memoria (ANES) 0.2 08-29 Drug form: l mg + 15:00: INJ, [place] Dosing Weight 97.3, kg, Start date: 08/29/20 10:00:00 CDT, Stop date: 08/29/20 11:00:00 CDT Isuprel HCl 2020-0 No Route: IV, Memoria (ANES) 0.2 08-29 Drug form: l mg + 15:00: INJ, [place] 00 Dosing Weight 97.3, kg, Start date: 08/29/20 10:00:00 CDT, Stop date: 08/29/20 11:00:00 CDT Isuprel HCl 2020-0 No Route: IV, Memoria (ANES) 0.2 08-29 Drug form: l mg + 15:00: INJ, [place] 00 Dosing Weight 97.3, kg, Start date: [...] Memori a 08-29 Route: l 14:01: IVP, [place] 00 Q5Min, Dosing Weight 97.273, kg, PRN [...] Memori a 08-29 Route: l 14:01: IVP, [place] 00 Q2MIN, Dosing Weight 97.273, kg, PRN [...] 08-29 Route: PO, l 14:01: Drug form: [place] 00 TAB, ONCE, Dosing Weight 97.273, kg, [...] lisa 08-29 Route: l 14:01: IVP, PRN, [place] 00 Dosing Weight 97.273, kg, PRN Benzodiaze pine Reversal, Initial dose, Start date: 08/29/20 9:01:00 CDT, Duration: 30 day, Stop date: 09/28/20 9:00:00 CDT Naloxone 2020-0 No 0.4 mg, Memori a 08-29 Route: l 14:01: IVP, [place] 00 Q2MIN, Dosing Weight 97.273, kg, PRN Narcotic Reversal, Start date: 08/29/20 9:01:00 CDT, Duration: 8 doses or times, Stop date: Limited # of times Ondansetron 2020-0 No 4 mg, Memor ia 08-29 Route: l 14:01: IVP, ONCE, [place] 00 Dosing Weight 97.273, kg, PRN Nausea [...] 08-29 Route: PO, l 14:01: Drug form: [place] 00 TAB, ONCE, Dosing Weight 97.273, kg, [...] oria ne 08-29 Route: l 14:01: IVP, [place] 00 Q5Min, Dosing Weight 97.273, kg, PRN [...] Memori a 08-29 Route: l 14:01: IVP, [place] 00 Q2MIN, Dosing Weight 97.273, kg, PRN Narcotic Reversal, Start date: 08/29/20 9:01:00 CDT, Duration: 8 doses or times, Stop date: Limited # of times Ondansetron 2020-0 No 4 mg, Memor ia 08-29 Route: l 14:01: IVP, ONCE, [place] 00 Dosing Weight 97.273, kg, PRN Nausea [...] 08-29 Route: PO, l 14:01: Drug form: [place] 00 TAB, ONCE, Dosing Weight 97.273, kg, [...] oria ne 08-29 Route: l 14:01: IVP, [place] 00 Q5Min, Dosing Weight 97.273, kg, PRN [...] 08-29 Route: PO, l 14:01: Drug form: [place] 00 TAB, ONCE, Dosing Weight 97.273, kg, [...] Memori a 08-29 Route: l 14:01: IVP, [place] 00 Q2MIN, Dosing Weight 97.273, kg, PRN [...] Memori a 08-29 Route: l 14:01: IVP, [place] 00 Q2MIN, Dosing Weight 97.273, kg, PRN [...] Memori a 08-29 Route: l 14:01: IVP, [place] 00 Q5Min, Dosing Weight 97.273, kg, PRN [...] oria ne 08-29 Route: l 14:01: IVP, [place] 00 Q5Min, Dosing Weight 97.273, kg, PRN Pain Score 7-10, Start date: 08/29/20 9:01:00 CDT, Duration: 4 doses or times, Stop date: Limited # of times Flumazenil 2020-0 No 0.2 mg, Caesar lisa 08-29 Route: l 14:01: IVP, PRN, [place] 00 Dosing Weight 97.273, kg, PRN Benzodiaze pine Reversal, Initial dose, Start date: 08/29/20 9:01:00 CDT, Duration: 30 day, Stop date: 09/28/20 9:00:00 CDT Naloxone 1-0 No 0.4 mg, Memori a 08-29 Route: l 14:01: IVP, [place] 00 Q2MIN, Dosing Weight 97.273, kg, PRN Narcotic Reversal, Start date: 08/29/20 9:01:00 CDT, Duration: 8 doses or times, Stop date: Limited # of times Ondansetron 1-0 No 4 mg, Memor ia 08-29 Route: l 14:01: IVP, ONCE, [place] 00 Dosing Weight 97.273, kg, PRN Nausea & Vomiting, Start date: 08/29/20 9:01:00 CDT Labetalol 1-0 No 10 mg, Memori a 08-29 Route: l 14:01: IVP, [place] 00 Q5Min, Dosing Weight 97.273, kg, PRN [...] Drug form: l 10 13:15: INJ, Start [place] microgram date: 08/29/20 8:15:00 CDT, Stop date: [...] Drug form: l 10 13:15: INJ, Start [place] microgram 00 date: 08/29/20 8:15:00 CDT, Stop date: 08/29/20 9:15:00 CDT Sodium 2020-0 No Route: IV, Memor ia Chloride 4-09 Total l 0.9% IV 12:30: Volume: Marty (ANES) 1000 00 1,000, mL Start date: 08/29/20 7:30:00 CDT, Stop date: 08/29/20 8:30:00 CDT Sodium 2021-0 No Route: IV, Memor ia Chloride 4-09 Total l 0.9% IV 12:30: Volume: [place] (ANES) 1000 00 1,000, mL Start date: 08/29/20 7:30:00 CDT, Stop date: 08/29/20 8:30:00 CDT Sodium 2021-0 No Route: IV, Memor ia Chloride 4-09 Total l 0.9% IV 12:30: Volume: [place] (ANES) 1000 00 1,000, mL Start date: [...] PO, l Hydrochlori 11:42: Q24H, # 30 [place] de 150 MG 00 tab, 0 Extended Refill(s) Release Tablet 24 HR Yes 150 mg = 1 [facility] a Bupropion 4-09 tab, PO, l Hydrochlori 11:42: Q24H, # 30 [place] de 150 MG 00 tab, 0 Extended Refill(s) Release Tablet 24 HR Yes 150 mg = 1 [facility] a Bupropion -09 tab, PO, l Hydrochlori 11:42: Q24H, # 30 [place] de 150 MG 00 tab, 0 Extended Refill(s) Release Tablet 24 HR 0 Yes 150 mg = 1 [facility] a Bupropion 4-09 tab, PO, l Hydrochlori 11:42: Q24H, # 30 [place] de 150 MG 00 tab, 0 Extended [...] 4 Q12H, tab, l Tablet 11:41: 0 [place] [Eliquis] 00 Refill(s), For Atrial Fibrilatio n apixaban 2020-0 Yes 5 mg, PO, Me moria MG Oral 4- Q12H, tab, l Tablet 11:41: 0 [place] [Eliquis] 00 Refill(s), For Atrial Fibrilatio n apixaban 2020-0 Yes 5 mg, PO, Me moria MG Oral 4- Q12H, tab, l Tablet 11:41: 0 [place] [Eliquis] 00 Refill(s), For Atrial Fibrilatio n apixaban 2020-0 Yes 5 mg, PO, Me moria MG Oral 4- Q12H, tab, l Tablet 11:41: 0 [place] [Eliquis] 00 Refill(s), For Atrial Fibrilatio n [...] tab, PO, l tablet 11:38: Daily, # [place] 00 90 tab, 3 Refill(s) AMIODarone 2020-0 Yes 200 mg = 1 M emoria 200 mg oral 4-09 tab, PO, l tablet 11:38: Daily, # [place] 00 90 tab, 3 Refill(s) AMIODarone 0 [...] mouth [place] 30 daily. Medical Branch apixaban 0 Yes 5mg Take 5 mg Univ ers (ELIQUIS) 5 3-17 by mouth 2 it y of mg tablet 08:18: (two) [place] 30 times Medical daily. Branch amiodarone Yes 100mg Take 100 Un matt 100 mg 3-17 mg by ity of tablet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 Refill Quinn, 1.2.840.1 [id number] 834794 6806 Methodi 00:00:00 00:00:00 Eh Lemus 50066.1.[address] 3.430.2.7 Hospit a .3.442325 l .8 2020-06-03 2020-06-03 Telephone Yazmin, 1.2.840.5 [id number] Methodi 00:00:00 00:00:[address] 3.430.2.7 Hospit a .3.766901 l .8 2020-06-02 2020-06-02 Telephone Yazmin, 1.2.840.5 [id number] Methodi 00:00:00 00:00:[address] 3.430.2.7 Hospit a .3.533410 l .8 2020-05-13 2020-05-13 Orders [facility], 1.2.840.1 [id number] 2100 442455 Methodi 00:00:00 00:00:00 Only Historical 77597.1.1 108 s t 3.430.2.7 Hospit a .3.103219 l .8 2020-05-09 2020-05-09 Telephone [facility], 1.2.840.1 [id number] Methodi 00:00:00 00:00:00 Sarai Lieberman 79174.1.1 660 s t 3.430.2.7 Hospit a .3.280151 l .8 2020-05-09 2020-05-09 Telephone [facility], 1.2.840.3 [id number] Methodi 00:00:00 00:00:[address] 3.430.2.7 Hospit a .3.073114 l .8 2020-05-08 2020-05-08 Telephone [facility], 1.2.840.4 [id number] Methodi 00:00:00 00:00:[address] 3.430.2.7 Hospit a .3.556961 l .8 2020-05-07 2020-05-07 Telephone [facility], 1.2.840.4 [id number] Methodi 00:00:00 00:00:[address] 3.430.2.7 Hospit a .3.182481 l .8 2020-05-05 2020-05-05 Telephone [facility], 1.2.840.1 [id number] Methodi 00:00:00 00:00:[address] 3.430.2.7 Hospit a .3.844436 l .8 2020-04-25 2020-05-03 [facility], 1.2.840.1 [id number] 2100 854167 Methodi 17:33:00 13:39:00 Encounter Ray [address]22.1.[address] 3.430.2.7 Hospit a .3.918661 l .8 2020-04-28 2020-04-28 Anesthesia Tomas Pinon 1.2.840.1 [id number] Methodi 13:38:00 19:40:00 Event Justine Catalan 35668.1.[address] 3.430.2.7 Hospit a .3.324300 l .8 2020-04-28 2020-04-28 Surgery [facility], 1.2.840.1 [id number] 10005 51123 Methodi 13:00:00 17:10:[address] 3.430.2.7 Hospit a .3.332052 l .8 2020-04-25 2020-04-25 [facility], 1.2.840.1 [id number] 2100 088521 Methodi 10:00:00 17:32:00 Encounter Ray [address]42.1.[address] 3.430.2.7 Hospit a .3.554027 l .8 2020-04-25 2020-04-25 [facility], 1.2.840.1 [id number] 03184 77311 Methodi 11:43:50 13:44:26 Visit Ray [address]8230.1.[address] 3.430.2.7 Hospit a .3.519057 l .8 2020-04-25 2020-04-25 Travel 1.2.840.1 1.2.337.979 2888 505000 Methodi 00:00:00 00:00:[address] 3.430.2.7 0.2.7.3.698 Ho spita .3.075489 084.8 l .8 2020-04-24 2020-04-24 Prep for Carol Ann, 1.2.840.1 [id number] 2 [id number] Methodi 00:00:00 00:00:00 Surgery Sarai CorbinChelsie 40132.1.1 524 s t 3.430.2.7 Hospit a .3.404261 l .8 2020-04-22 2020-04-22 Telephone Meli, 1.2.840.1 [id number] 192 [id number] Methodi 00:00:00 00:00:[address] 3.430.2.7 Hospit a .3.169459 l .8 2020-04-22 2020-04-22 Travel 1.2.840.1 1.2.121.327 0299 763066 Methodi 00:00:00 00:00:[address] 3.430.2.7 0.2.7.3.698 Ho spita .3.103955 084.8 l .8 2020-04-21 2020-04-21 Emergency , Jolene- 1.2.840.1 [id number] 2 [id number] Methodi 06:51:00 10:43:[address] 3.430.2.7 Hospit a .3.438325 l .8 2020-04-21 2020-04-21 Orders [facility], 1.2.840.1 [id number] Methodi 00:00:00 00:00:00 Only Sarai Lieberman 49554.1.1 550 s t 3.430.2.7 Hospit a .3.363062 l .8 2020-04-16 2020-04-16 Telephone [facility], 1.2.840.1 [id number] Methodi 00:00:00 00:00:00 Sarai Corbin. 08394.1.1 673 s t 3.430.2.7 Hospit a .3.519970 l .8 2020-04-10 2020-04-10 Telephone [facility], 1.2.840.7 [id number] Methodi 00:00:00 00:00:[address] 3.430.2.7 Hospit a .3.938228 l .8 2020-04-07 2020-04-07 Telephone Nahum, 1.2.840.1 [id number] 2100 466535 Methodi 00:00:00 00:00:[address] 3.430.2.7 Hospit a .3.525333 l .8 2020-04-01 2020-04-01 Orders Provider, 1.2.840.1 [id number] 2099 [id number] Methodi 00:00:00 00:00:00 Only Historical 43867.1.1 049 s t 3.430.2.7 Hospit a .3.435110 l .8 2020-03-31 2020-03-31 Travel 1.2.840.1 1.2.509.445 2787 462873 Methodi 00:00:00 00:00:[address] 3.430.2.7 0.2.7.3.698 Ho spita .3.066611 084.8 l .8 2020-03-27 2020-03-27 Telephone Paula, Min 1.2.840.2 [id number] Methodi 00:00:00 00:00:[address] 3.430.2.7 Hospit a .3.832918 l .8 Results Test Description Test Time Test Comments Results Result Comments Source Gastrointestinal panel 2020-12-09 04:35:05 Test Item Value Reference Range Interpretation Comme nts Adenovirus 40/41 PCR (test code = Not Detected Specimen InformationSpecimen 7151) Source: StoolSp ecimen Site: Nonpreserved Astrovirus PCR [...] Rotavirus PCR (test code = Not Detected 2996139) Salmonella PCR (test code = 4783) Not [...] PCR (test code = Not Detected 7124) [facility] Ll5994-68-19 19:17:40EXAMINATION: XR ABDOMEN 1 VW CLINICAL HISTORY: [...] Osseous structures are stable. Cholecystectomy clips are noted.[id number] [place] < 1 Eldx9325-88-07 19:41:02EXAMINATION: OR FL < 1 HOUR C-arm fluoroscopy was requested in OR. Location: [facility] OR [facility] Procedure: EGD WITH BOTOX INJECTION INTO THE [...] arm fluoroscopy was requested in OR. Location: [facility] OR room 6 Procedure: EGD WITH BOTOX INJECTION INTO THE PYLORUS, ENDOFLIP, ON TABLE ESOPHAGRAM (N/A ) Start: 1140 End:1222 FluoroTime: .19sec Dose: 7.8mGy Tech: A.BIMPRESSION:Intraoperative fluoroscopic images. Radiologist was not present during the examination.Separate operative report will be issued by the physician performingthe procedure.[id number] HospitalSurgical pathology request 2020-09-08 19:30:47 Test Item Value Reference Range Interpretation Comments Case number (test [id number] code = 7764409) Surgical pathology See link below for PDF report (test code = Lab Report 2255) Result status (test This is Supplemental code = 6154094) Report for [id number] [facility] 1 Vw Szvmiajw8748-88-94 23:06:58EXAMINATION: XR CHEST 1 VW PORTABLE HISTORY: [...] enlarged, similar to prior. Bilateral shoulder arthroplasties. [facility]-[id number] Interface, Radiology Results 09/06/2020 6:09PM CDT EXAMINATION: [...] silhouette is enlarged, similar to prior.Bilateral shoulder arthroplasties.[facility]-[id number] OdrwxxrfCrwiin7387-31-39 16:47:23Kirit Flood MD 09/05/2020 11:48 [address]: [...] RSI: Yes Number of Attempts at Approach: [facility] 12 uavt5517-08-85 23:21:56 Test Item Value Reference Range Interpretation [...] T wave abnormality, consider anterior ischemia-Abnormal ECG- [facility] qualitative VJC6388-71-33 22:48:41 Test Item Value Reference Range Interpretation Comments Interpretation (test Negative results do code = 2371235) not preclude 2019-nCoV infection and should not be used as the sole basis for treatment or other patient management decisions. Negative results must be combined with clinical observations, patient history, and epidemiological information. COVID-19 qualitative Not-Detected Not-Detected RT-PCR result (test code = 87661-8) COVID-19 qualitative See link below for C ase Number: RT-PCR (test code = PDF Lab Report [id number]) [facility] CampusZksentxsDNUSZCBHOG0577-43-37 16:31:00 Test Item Value Reference Range Interpretation Comments POC Activated Clotting Time (test code 153 s = POC Activated Clotting Time) [facility]dmq[facility]kkRQBGRFCIKQ1231-37-16 16:31:00 Test Item Value Reference Range Interpretation Comments POC Activated Clotting Time (test code 153 s = POC Activated Clotting Time) [place] 587781-04-09 16:31:00 Test Item Value Reference Range Interpretation Comments POC Activated Clotting Time (test code 153 s = POC Activated Clotting Time) [facility] HospitalPolsyvtFCQCTZNHXX7386-40-46 16:31:00 Test Item Value Reference Range Interpretation Comments POC Activated Clotting Time (test code 153 s = POC Activated Clotting Time) [facility] HospitalOheigmrTPACIBGSSH8288-57-23 16:31:00 Test Item Value Reference Range Interpretation Comments POC Activated Clotting Time (test code 153 s = POC Activated Clotting Time) [facility] HospitalUbnbuhzSWSYXCERXP9924-72-35 16:31:00 Test Item Value Reference Range Interpretation Comments POC Activated Clotting Time (test code 153 s = POC Activated Clotting Time) [facility] HospitalYzhinreSBSDMEDNUC2413-09-93 16:31:00 Test Item Value Reference Range Interpretation Comments POC Activated Clotting Time (test code 153 s = POC Activated Clotting Time) [facility] HospitalNsnerapYWKKOQQXCM0366-70-20 14:37:00 Test Item Value Reference Range Interpretation Comments POC Activated Clotting Time (test code 454 s = POC Activated Clotting Time) [facility] HospitalEfbldimWUUBLJSTWQ3728-81-12 14:37:00 Test Item Value Reference Range Interpretation Comments POC Activated Clotting Time (test code 454 s = POC Activated Clotting Time) [facility] HospitalTyjnkhmOZQFDOAROR4139-08-34 14:37:00 Test Item Value Reference Range Interpretation Comments POC Activated Clotting Time (test code 454 s = POC Activated Clotting Time) [facility] HospitalUfzmtyhPDYOTRTNBY5262-20-36 14:37:00 Test Item Value Reference Range Interpretation Comments POC Activated Clotting Time (test code 454 s = POC Activated Clotting Time) [facility] HospitalRdjmuzzIEBKCMCMWL5544-49-83 14:37:00 Test Item Value Reference Range Interpretation Comments POC Activated Clotting Time (test code 454 s = POC Activated Clotting Time) [facility] HospitalWrhdcmuMAZJWJATXO0418-97-99 14:37:00 Test Item Value Reference Range Interpretation Comments POC Activated Clotting Time (test code 454 s = POC Activated Clotting Time) [facility] HospitalXtqluxtOAMQUEICYS8575-60-40 14:37:00 Test Item Value Reference Range Interpretation Comments POC Activated Clotting Time (test code 454 s = POC Activated Clotting Time) [facility] HospitalGrmhpiuOOVCKJVUNZ8483-86-96 14:13:00 Test Item Value Reference Range Interpretation Comments POC Activated Clotting Time (test code 354 s = POC Activated Clotting Time) [facility] HospitalIvytzpaVEGDGERPLF9187-34-99 14:13:00 Test Item Value Reference Range Interpretation Comments POC Activated Clotting Time (test code 354 s = POC Activated Clotting Time) [facility] HospitalVohavsqEEYIGVDFHW1531-76-70 14:13:00 Test Item Value Reference Range Interpretation Comments POC Activated Clotting Time (test code 354 s = POC Activated Clotting Time) [facility] HospitalAchbeeeQTHSVQBCMW8623-89-27 14:13:00 Test Item Value Reference Range Interpretation Comments POC Activated Clotting Time (test code 354 s = POC Activated Clotting Time) [facility] HospitalEflrzpgUPOXZOJUTC4764-96-09 14:13:00 Test Item Value Reference Range Interpretation Comments POC Activated Clotting Time (test code 354 s = POC Activated Clotting Time) [facility] HospitalLfwuzduYZTDIUIAFM6232-89-87 14:13:00 Test Item Value Reference Range Interpretation Comments POC Activated Clotting Time (test code 354 s = POC Activated Clotting Time) [facility] HospitalMyeiaibIPCZTJQLQZ9305-95-77 14:13:00 Test Item Value Reference Range Interpretation Comments POC Activated Clotting Time (test code 354 s = POC Activated Clotting Time) [facility] DHPUTDN6148-08-99 10:37:00Negative (08/29/20 5:37 AM) [facility]CHE[facility] TDXIR7689-31-64 10:37:83483Cmiyypbl HermannCHEM PANEL 2020-08-29 10:37:0028[facility]annCHEM CQGXG0152-01-55 10:37:001.01[facility] HermannCHEM FZWVG1784-18-07 10:37:12345Ohowncit HermannCHEM JEICZ0136-89-10 10:37:003.8[facility] HermannCHEM VNKLA4980-91-84 10:37:30336Vangebcv HermannCHEM HGABM9166-87-18 10:37:0028[facility] HermannCHEM SYIRW2345-04-65 10:37:009.8 [facility]annCHEM UARFQ1433-64-19 10:37:0011.8[facility] HermannCHEM PANEL 2020-08-29 10:37:0059[facility] HermannCHEM XWTSL8291-89-33 10:37:002.9[facility] EvkduquYGFIVZDIAB0560-18-88 10:37:006.8[facility] RxgqpujKLFSXIVSDL4292-74-29 10:37:004.47[facility] YterusyZIWOSCZVSZ7175-54-78 10:37:0010.6[facility] SPRRURLKKM9156-77-99 10:37:0034.0[facility] FnzmaxiSHEXLOLWPU5788-68-25 10:37:00 76.1[facility]orial QcqapchRLYSQKZWKE5021-15-21 10:37:00 Test Item Value Reference Range Interpretation Comments MCH (test code = MCH) 23.8 pg 27.0-31.0 [facility] LxstrguWGSYOYNLAO1090-09-58 10:37:0031.3[facility] HermannHEMATOLOGY 2020-08-29 10:37:0018.2[facility] QufdrdtUTDCXCOSKB5268-89-86 10:37:35970Dtndfqus NsvmmahIZZTBXBPHI7002-89-92 10:37:007.5[facility] SsdnesvKEUKFQXGXM8279-36-00 10:37:00 Test Item Value Reference Range Interpretation Comments PT (test code = PT) 12.8 s 12.0-14.7 [facility] DryetbmPXESUGXLAB0017-37-10 10:37:00 Test Item Value Reference Range Interpretation Comments INR (test code = INR) 0.97 1 0.85-1.17 [facility] OjfamrrTIEIPOMNWE9071-73-39 10:37:00 Test Item Value Reference Range Interpretation Comments PTT (test code = PTT) 25.0 s 22.9-35.8 [facility] KubmflyMATXLVNIQZ1225-58-63 10:37:0070.5[facility] HermannHEMATOLOGY 2020-08-29 10:37:0018.8[facility] DkmtxjdYUAGAMKWTN5640-98-33 10:37:009.5[facility] TelxyvfWPAUGARMUO1204-11-47 10:37:000.9[facility] QassvjpDOKZESKSPF7788-88-31 10:37:000.3[facility] CnznnzvURDUCFUBYX0016-35-15 10:37:004.8[facility] AGGYQPAEGU2388-67-21 10:37:001.3[facility] HrruhyhJQIDXTKDOH9597-88-22 10:37:000.6 [facility] QrixnkaYPFFOHZPBM5692-77-83 10:37:000.1[facility] HermannHEMATOLOGY 2020-08-29 10:37:001+ *ABN*(08/29/20 5:37 AM)[facility] DcxopnzRKKZNCXNWE5296-09-42 10:37:00Not Detected (08/29/20 5:37 AM)[facility] HermannBLOOD BANK RESULTS 2020-08-29 10:37:00Negative (08/29/20 5:37 AM)[facility] HermannCHEM SKCGL7933-57-04 10:37:80144Zesuiwtq HermannCHEM AKCYX0211-05-92 10:37:0028[facility] HermannCHEM QJNII9473-37-53 10:37:001.01[facility] HermannCHEM EINLU4024-75-06 10:37:35754 [facility] HermannCHEM XUKKL6736-68-64 10:37:003.8[facility] HermannCHEM PANEL 2020-08-29 10:37:72048Jppdtnpd HermannCHEM HUJBO6878-26-70 10:37:0028[facility] HermannCHEM GMXVX6281-88-79 10:37:009.8[facility] HermannCHEM GNQAU7254-30-69 10:37:0011.8[facility] HermannCHEM GAUFA0117-34-21 10:37:0059[facility] HermannCHEM FYSIG3459-55-10 10:37:002.9[facility] SzhpolpTWYJXJCZRJ0511-87-46 10:37:006.8 Memorial UdzqjwqDCVOWXJZQK3266-47-29 10:37:004.47[facility] HermannHEMATOLOGY 2020-08-29 10:37:0010.6[facility] BoczirmRDCVOIVRUH0857-09-48 10:37:0034.0[facility] KcelxarURTBVRWTJL7777-62-09 10:37:0076.1[facility] AcvrlsaGMZBHBVUIT0409-38-42 10:37:00 Test Item Value Reference Range Interpretation Comments MCH (test code = MCH) 23.8 pg 27.0-31.0 [facility] PtypyehVIEIEYVYRE3686-10-34 10:37:0031.3[facility] HermannHEMATOLOGY 2020-08-29 10:37:0018.2[facility] AbibmbsKIQGJFFHWI8077-88-36 10:37:89053Syraenxf LxnayewUJHEXNLOCN8504-69-54 10:37:007.5[facility] EwjloqzDBRYMKCPQW9966-68-75 10:37:00 Test Item Value Reference Range Interpretation Comments PT (test code = PT) 12.8 s 12.0-14.7 Memorial MhwohtjCWUXTTCDUF9476-60-56 10:37:00 Test Item Value Reference Range Interpretation Comments INR (test code = INR) 0.97 1 0.85-1.17 [facility] ZhsdzinQTVGCRRMBH0859-04-87 10:37:00 Test Item Value Reference Range Interpretation Comments PTT (test code = PTT) 25.0 s 22.9-35.8 Memorial EpkegpxKOKJWSXWVW6215-08-69 10:37:0070.5[facility] HermannHEMATOLOGY 2020-08-29 10:37:0018.8[facility] AhpogkzKWKBEXRUSU6699-49-63 10:37:009.5[facility] HdpqmayAJXURMYZEI1280-88-79 10:37:000.9[facility] WmtcwkhHKKSJTJXKN3844-52-97 10:37:000.3[facility] JkqqailWHKZVXUZVD7364-21-59 10:37:004.8[facility] ESLZAQWAPI5759-70-26 10:37:001.3[facility] VlhllqwDQOGYPAOGV0967-21-92 10:37:000.6 [facility] HjsscboBAPFEBGSJH9001-83-64 10:37:000.1[facility]annHEMATOLOGY 2020-08-29 10:37:001+ *ABN*(08/29/20 5:37 AM)[facility] VmfnacpZAFPVVDMRL4401-18-25 10:37:00Not Detected (08/29/20 5:37 AM)[facility] RESULTS 2020-08-29 10:37:00Negative (08/29/20 5:37 AM)[facility]annCHEM OVIEK3256-02-27 10:37:76878Mfyhmmgp HermannCHEM LJRUD1431-04-47 10:37:0028[facility]annCHEM GZTXU7260-10-35 10:37:001.01[facility]annCHEM RHHKD5878-64-59 10:37:53080 [facility]annCHE[facility] VSPEY4070-54-24 10:37:003.8[facility]annCHEM PANEL 2020-08-29 10:37:15379Jzaqzbog [facility]CHE[facility] QTATJ5457-83-59 10:37:0028[facility]annCHEM XZIBW3324-86-18 10:37:009.8[facility]annCHEM YJFAQ5502-72-83 10:37:0011.8[facility]annCHEM QDMDG5404-90-08 10:37:0059[facility]annCHEM PNJIN8904-81-04 10:37:002.9[facility] YeslmahKTWTPWGMQJ4993-41-70 10:37:006.8 [facility] PdtulhhKLLPMGXVZP6049-74-07 10:37:004.47[facility]annHEMATOLOGY 2020-08-29 10:37:0010.6[facility] ZlobpydFYKHWLNIFU6780-88-81 10:37:0034.0[facility] OszyedlDWPSPAGEMS3814-27-96 10:37:0076.1[facility] UlrhvbnSLAIKDRXLH3259-62-65 10:37:00 Test Item Value Reference Range Interpretation Comments MCH (test code = MCH) 23.8 pg 27.0-31.0 [facility] QfdhpdgCBDWJNMUVQ9941-86-32 10:37:0031.3[facility]annHEMATOLOGY 2020-08-29 10:37:0018.2[facility] KexdzkeNQLISYAFBM5635-26-23 10:37:16899Fknkclib PfyzkceSCOVZXQOHJ0676-36-36 10:37:007.5[facility] RjhdfpuAWLLWBXVDT9553-44-22 10:37:00 Test Item Value Reference Range Interpretation Comments PT (test code = PT) 12.8 s 12.0-14.7 [facility] IcoicclZSCBXEPXRE3429-17-64 10:37:00 Test Item Value Reference Range Interpretation Comments INR (test code = INR) 0.97 1 0.85-1.17 [facility] IcoklsmPUEBWYFETQ3273-05-45 10:37:00 Test Item Value Reference Range Interpretation Comments PTT (test code = PTT) 25.0 s 22.9-35.8 [facility] PkequhlDNTETQQTND5667-78-12 10:37:0070.5[facility]annHEMATOLOGY 2020-08-29 10:37:0018.8[facility] NgedmwxIFOEEEQEJS7790-75-86 10:37:009.5[facility] CxinfphLLVNHEFSAT5016-14-16 10:37:000.9[facility] NiusaghZDPJHZTBLC0386-86-36 10:37:000.3[facility] ReggndgBZGSVWUHWX2841-14-06 10:37:004.8[facility] SMYKLUIHWZ6750-66-51 10:37:001.3[facility] VbtpqqgIJOGYFKFVG6360-27-38 10:37:000.6 [facility] JlwhrqnVJQRIDGKZI9893-26-26 10:37:000.1[facility]annHEMATOLOGY 2020-08-29 10:37:001+ *ABN*(08/29/20 5:37 AM)[facility] PacrmnlHDMYDRUUQA7061-70-25 10:37:00Not Detected (08/29/20 5:37 AM)[facility] HermannBLOOD BANK RESULTS 2020-08-29 10:37:00Negative (08/29/20 5:37 AM)[facility]annCHEM KGFKU3989-81-12 10:37:36625Vzcjdeve HermannCHEM NFCRV3212-29-83 10:37:0028[facility]annCHEM CTVGN0192-71-67 10:37:001.01[facility] HermannCHEM RXIHB4387-96-95 10:37:61446 [facility]annCHE[facility] JEMDX2369-47-86 10:37:003.8[facility] HermannCHEM PANEL 2020-08-29 10:37:12364Mommsxit HermannCHEM AJZHM4929-80-91 10:37:0028[facility] HermannCHEM UNVFG7647-41-06 10:37:009.8[facility] HermannCHEM VSZVZ0423-79-51 10:37:0011.8[facility] HermannCHEM NZYUU2642-32-95 10:37:0059[facility]annCHEM LTFXD8233-56-93 10:37:002.9[facility] SwtncibXKSHQNPXSO3395-68-70 10:37:006.8 [facility] OfqhpcfHMZFIMETPV6847-24-47 10:37:004.47[facility]annHEMATOLOGY 2020-08-29 10:37:0010.6[facility] YjolboaRTFGAZGHZE0810-95-60 10:37:0034.0[facility] XpxcnomDMDMJUCEXH4207-98-17 10:37:0076.1[facility] GhqxcjwBRHONZBKOF6108-66-61 10:37:00 Test Item Value Reference Range Interpretation Comments MCH (test code = MCH) 23.8 pg 27.0-31.0 [facility] WctemgqLUEFEDZBHM4076-72-83 10:37:0031.3[facility] 2020-08-29 10:37:0018.2[facility] AzbuuxoDKHSKBADMW4960-65-68 10:37:82741Yjpejzow JfozpzeWEKAKNKQRY4399-30-56 10:37:007.5[facility] FumsvrdDVAIGICUOH8251-77-89 10:37:00 Test Item Value Reference Range Interpretation Comments PT (test code = PT) 12.8 s 12.0-14.7 [facility] GxtnzkdWAINKYZSVR3303-36-56 10:37:00 Test Item Value Reference Range Interpretation Comments INR (test code = INR) 0.97 1 0.85-1.17 [facility] CqmspmmZMOMOYNSGX4472-13-52 10:37:00 Test Item Value Reference Range Interpretation Comments PTT (test code = PTT) 25.0 s 22.9-35.8 [facility] LtsytdcYMSOERJWQQ7861-40-24 10:37:0070.5[facility]ann[facility]OLOGY 2020-08-29 10:37:0018.8[facility] NyywzmaKPZKQWAQRA5049-98-59 10:37:009.5[facility] AgdfvjtZECREWFTWB1556-41-60 10:37:000.9[facility] RebtbonGRAGCRYPUD3465-80-75 10:37:000.3[facility] MtoayxxHTSICAWSSX9283-51-02 10:37:004.8[facility] QDLOAQNWQL2857-78-11 10:37:001.3[facility] BzmcagbRSWVJEPSHB7636-57-93 10:37:000.6 [facility] WpmmutlEKTAELPUAX8429-76-85 10:37:000.1[facility]annHEMATOLOGY 2020-08-29 10:37:001+ *ABN*(08/29/20 5:37 AM)[facility] NbabqxcXMYWVWVDQI6001-94-66 10:37:00Not Detected (08/29/20 5:37 AM)[facility]ann[facility] RESULTS 2020-08-29 10:37:00Negative (08/29/20 5:37 AM)[facility] HermannCHEM OCJCE7743-69-33 10:37:34493Dkxvgfqk HermannCHEM DOAJT6786-44-87 10:37:0028[facility] HermannCHEM DYDUK7457-51-51 10:37:001.01[facility]annCHEM BSCJE7089-00-89 10:37:80475 [facility]annCHE[facility] ZMTWS0170-67-23 10:37:003.8[facility] HermannCHEM PANEL 2020-08-29 10:37:87724Vqutstxo HermannCHEM PQWZY3493-02-61 10:37:0028[facility]annCHEM JOUMU3410-69-93 10:37:009.8[facility] HermannCHEM FVMBC3121-60-80 10:37:0011.8[facility] HermannCHEM XTEZY0669-57-87 10:37:0059[facility] HermannCHEM UJDUP7585-25-77 10:37:002.9[facility] OqjpoghIHINFAOOBO1735-80-38 10:37:006.8 [facility] BaaypraEZYHPZKHDE7071-90-50 10:37:004.47[facility]annHEMATOLOGY 2020-08-29 10:37:0010.6[facility] HaepdomABEUWGCBFJ8725-71-50 10:37:0034.0[facility] NnnxttxCEQUYLGPOR0993-73-76 10:37:0076.1[facility] UkvowhyQMHVRPRFWG7434-89-62 10:37:00 Test Item Value Reference Range Interpretation Comments MCH (test code = MCH) 23.8 pg 27.0-31.0 [facility] UuoetxnGAINAZLWHQ3684-73-18 10:37:0031.3[facility]annHEMATOLOGY 2020-08-29 10:37:0018.2[facility] YvdlejrTVFSZFTRYX9625-17-01 10:37:36928Plrrbpib LjihcliTBUURSOTGQ8382-30-10 10:37:007.5[facility] YllnwzgHNGUPPOPYV5881-09-67 10:37:00 Test Item Value Reference Range Interpretation Comments PT (test code = PT) 12.8 s 12.0-14.7 [facility] VoogrjmNGEIXOBDEW5833-55-79 10:37:00 Test Item Value Reference Range Interpretation Comments INR (test code = INR) 0.97 1 0.85-1.17 [facility] HgxgqhvWFEAXIPKIH9545-73-87 10:37:00 Test Item Value Reference Range Interpretation Comments PTT (test code = PTT) 25.0 s 22.9-35.8 [facility] BgeujriJTESGIWLXF0640-72-95 10:37:0070.5[facility]annHEMATOLOGY 2020-08-29 10:37:0018.8[facility] HxrnqspYEMSOYVIMD7404-73-37 10:37:009.5[facility] ZfqmiljKIEBQJESMB5570-19-29 10:37:000.9[facility] PyjtgasFUDEUWAZAW5596-08-45 10:37:000.3[facility] ZftzrspPTPUENGFVZ1193-47-99 10:37:004.8[facility] [place] ASWQTOOCWW6862-91-20 10:37:001.3[facility] CazkjqxYWGCUKDOIF4844-28-84 10:37:000.6 [facility] BdzapnlOJVXROCHNT1280-32-09 10:37:000.1[facility]annHEMATOLOGY 2020-08-29 10:37:001+ *ABN*(08/29/20 5:37 AM)[facility] IswkusgJYUKQWMOZK8315-09-71 10:37:00Not Detected (08/29/20 5:37 AM)[facility]annBL[facility] BANK RESULTS 2020-08-29 10:37:00Negative (08/29/20 5:37 AM)[facility] HermannCHEM QQQPV0880-06-54 10:37:47841Aizqixix HermannCHEM BFQEC0389-96-59 10:37:0028[facility] HermannCHEM TSNCW1761-38-10 10:37:001.01[facility] HermannCHEM QNWJI8874-91-05 10:37:25042 [facility]annCHEM FWSKI0591-43-63 10:37:003.8[facility] HermannCHEM PANEL 2020-08-29 10:37:35929Gnllqfly HermannCHEM EQRUS8854-87-96 10:37:0028[facility]annCHEM AQZYB1493-48-90 10:37:009.8[facility] HermannCHEM BIQBD4829-07-58 10:37:0011.8[facility] HermannCHEM XROBQ2910-86-78 10:37:0059[facility] HermannCHEM SWYSR0106-47-71 10:37:002.9[facility] UlmjoboQGZGRVTKNM6479-51-12 10:37:006.8 [facility] CejxdlzYOBKFGMKLU6542-34-84 10:37:004.47[facility]annHEMATOLOGY 2020-08-29 10:37:0010.6[facility] NjzwcocQCFYUJNDFE6616-48-52 10:37:0034.0[facility] IqipwfiLHDMFMCILC3527-79-13 10:37:0076.1[facility] ApvcwncWBNFODFFYV6092-28-74 10:37:00 Test Item Value Reference Range Interpretation Comments MCH (test code = MCH) 23.8 pg 27.0-31.0 [facility] NmusairULPTAFEHUK8328-20-31 10:37:0031.3[facility]annHEMATOLOGY 2020-08-29 10:37:0018.2[facility] QpsdzolUYOUERNQOP5300-14-37 10:37:31214Spefhpqz JqlahucWMYBRGRUOP8053-36-46 10:37:007.5[facility] JbexmcfTJLSEROBIK7605-38-47 10:37:00 Test Item Value Reference Range Interpretation Comments PT (test code = PT) 12.8 s 12.0-14.7 [facility] HohbekfYPKCXCIJKJ4893-10-56 10:37:00 Test Item Value Reference Range Interpretation Comments INR (test code = INR) 0.97 1 0.85-1.17 [facility] JdvvsrbZOAKVZPLFP3979-37-79 10:37:00 Test Item Value Reference Range Interpretation Comments PTT (test code = PTT) 25.0 s 22.9-35.8 [facility] BscxpjcRMBMKDIFVR8614-16-41 10:37:0070.5[facility]annHEMATOLOGY 2020-08-29 10:37:0018.8[facility] OqfhgymAOZSHWUJPL8816-06-20 10:37:009.5[facility] JayayzoBDHLQQCKNR2052-07-88 10:37:000.9[facility] RqcmmlpVJQHAWXTVA3056-37-65 10:37:000.3[facility] JuistezGMBLFWCZOY9135-79-81 10:37:004.8[facility] NAWHQNGFZZ5558-93-87 10:37:001.3[facility] NcstiwwNGYYXLRETP7600-07-39 10:37:000.6 [facility] NdvyrbsMKVAZRBQBC3891-11-98 10:37:000.1[facility]annHEMATOLOGY 2020-08-29 10:37:001+ *ABN*(08/29/20 5:37 AM)[facility] XtbtvsoWUXHTDIOFJ9708-17-54 10:37:00Not Detected (08/29/20 5:37 AM)[facility]annBLOOD BANK RESULTS 2020-08-29 10:37:00Negative (08/29/20 5:37 AM)[facility] HermannCHEM OJONT4289-20-60 10:37:57931Noslkshc HermannCHEM NUCYM4447-37-58 10:37:0028[facility] HermannCHEM KTTKG0127-77-63 10:37:001.01[facility] HermannCHEM DXSKU4780-92-66 10:37:27656 [facility]annCHEM AHYCG8542-60-61 10:37:003.8[facility] HermannCHEM PANEL 2020-08-29 10:37:50393Fddkeafh HermannCHEM THKHM6249-28-26 10:37:0028[facility] HermannCHEM XDYVR3028-79-05 10:37:009.8[facility] HermannCHEM GCVTG0918-29-93 10:37:0011.8[facility] HermannCHEM QQBQJ3771-06-79 10:37:0059[facility] HermannCHEM DSRSR9498-09-72 10:37:002.9[facility] BldgwfvNZMJQQSAJN9396-40-57 10:37:006.8 [facility] QjyuaecHXYYQTYVZQ2406-16-34 10:37:004.47[facility]annHEMATOLOGY 2020-08-29 10:37:0010.6[facility] EnmbseuTWCREHRLDH3387-92-93 10:37:0034.0[facility] QpvuqluOCSAUEUKTN0909-58-87 10:37:0076.1[facility] DmrpvkrBOWQHBLYGZ2004-08-51 10:37:00 Test Item Value Reference Range Interpretation Comments MCH (test code = MCH) 23.8 pg 27.0-31.0 [facility] XmlhfsmJNWLEEAXZP8231-14-47 10:37:0031.3[facility]annHEMATOLOGY 2020-08-29 10:37:0018.2[facility] SouljlqGCNZTDVIWP0534-33-80 10:37:82544Banixwiq UtzdlgwLRIBHFDBML3299-57-22 10:37:007.5[facility] UhaxynqXWUBGOJDEO7347-74-09 10:37:00 Test Item Value Reference Range Interpretation Comments PT (test code = PT) 12.8 s 12.0-14.7 [facility] PrhglalOXHUPZLGDZ2210-21-66 10:37:00 Test Item Value Reference Range Interpretation Comments INR (test code = INR) 0.97 1 0.85-1.17 [facility] VwdrsbmTYVDYPTFJZ8018-88-60 10:37:00 Test Item Value Reference Range Interpretation Comments PTT (test code = PTT) 25.0 s 22.9-35.8 [facility] PpsqslcNZZUEIDGQY1188-47-99 10:37:0070.5[facility]annHEMATOLOGY 2020-08-29 10:37:0018.8[facility] BatvzfiSIVNPHDXXT4253-01-79 10:37:009.5[facility] FxxigbrIGYHDMNFZN1228-34-05 10:37:000.9[facility] UnphzevKIFUCQQCTO3871-02-28 10:37:000.3[facility] LomqkeyHZVPSNRKKW1542-07-37 10:37:004.8[facility] KOCWRWIDZL9554-60-29 10:37:001.3[facility] QqnthutWHIOMSQBOJ6130-17-61 10:37:000.6 [facility] MvtmzigJMRKIPIHIV8104-69-35 10:37:000.1[facility]annHEMATOLOGY 2020-08-29 10:37:001+ *ABN*(08/29/20 5:37 AM)[facility] TrthjhsYUWWKLPOHW9225-72-97 10:37:00Not Detected (08/29/20 5:37 AM)[facility] 2020-08-27 23:14:39PROCEDURE: NM GASTRIC [...] complete emptying by 4 hours. [facility]-[id number] Interface, Radiology Results 08/27/2020 6:17 PM CDT [...] complete emptying by 4 hours. [facility]-[id number]. Vincent Frank[facility]nel[facility] referral test 2020-05-09 21:24:58 Test Item Value Reference Range Interpretation Comments Misc test HIV-1 RNA QUAL PCR name (test code = 2566) Misc test see note Human Immunodef iciency result (test Virus 1 (HIV-1) by code = 1730) Qualitative Enterprise Account Manager-M ediated Amplification ( TMA) [facility] test code 0793524 HIV-1 by Qualit ative TMA See Note SOURCE/SPECIMEN PLASMA HIV-1 RNA, QUAL ITATIVE TMA HIV-1 RNA, QL TMA T [employer] PACKER Test Not Performed. Initial testing necessi tated a repeat, but the re was insufficient sa mple to perform repeat. SAMPLE LEFT FOR REPEAT IS 50 uL. NEED 1000 u L TO RUN REPEAT. This te st was performed using the APTIMA(R) HIV-R NA Qualitative Ass ay (Gen-Probe). ======== ======== Te st performed by:[facility] [address] [address] KYLE (test HIVQL - HIV-1 RNA, code = KYLE) Qualitative TMA (FROZEN)[facility]UP Test Code: 0612622Tcpouh: plasma [facility] duplex venous upper urnijkxtb1960-31-25 04:57:00 Vascular Ultrasound Laboratory Upper Extremity Venous Report [address] [place] [address] Pat.Name: LIO WATTS Marta.ID: [id number] St.Date: 04/30/2020 Refer.MD: ELISEO ARCE MD Exam Time: 5:04:00 PM Study Type:UE Venous Age: 9 1955,65Y Sex: FEMALE Sonogrphr: Dwayne Macias, IBIS, RCS Pat. Stat.:Inpatient Room: [place] [address] 2020 Tape Vol: EDGAR, CPT - 4: 94097 Echo Event ID:[id number] Order ID: [id number] Reason for Study:Arm swelling or pain, DVT [...] veins.*Preliminary result reported to ASHLEY Santos @ 3458 on 04/30/20.PHYSICIAN INTERPRETATION Venous examination of the both upper extremities and neck demonstratedno evidence of deep venous thrombosis. Total superficial vein thrombosis of the right basilic vein. FINDINGS: Signed 04/30/2020 10:57 PMFrancis Cabral MD, RPVIInterce, Radiology Results In - 04/30/2020 10:58 PM CST Vascular Ultrasound Laboratory Upper Extremity Venous Report [id number] [address] Pat.Name: LIO WATTS Marta.ID: [id number] .Date: 04/30/2020 Refer.MD: ELISEO ARCE MD Exam Time: 5:04:00 PM Study Type:UE Venous Age: 10 1955,65Y Sex: FEMALE Sonogrphr: Dwayne Macias, IBIS, RCS Pat. Stat.:Inpatient Room: [place] [address] 2020 Tape Vol: JM, CPT - 4: 03603 Echo Event ID:[id number] Order ID: [id number] Reason for Study:Arm swelling or pain, DVT [...] veins.*Preliminary result reported to ASHLEY Santos @ 2629 on 04/30/20.PHYSICIAN INTERPRETATION Venous examination of the both upper extremities and neck demonstratedno evidence of deep venous thrombosis. Total superficial vein thrombosis of the right basilic vein. FINDINGS: ------Signed 04/30/2020 10:57 Rajni Cabral MD, [facility]XR [facility] 2 Mj8208-71-03 22:21:01EXAMINATION: XR CHEST 2 VW CLINICAL HISTORY: [...] active disease of the chest.1D2RAD_PS01[facility] Unsuccessful Hrouezp3006-18-96 17:14:34ANicole zhang RN 04/30/2020 11:25 AMMidline Unsuccessful [...] place a PIV g.20 in lower arm .[facility] Abdomen 1 Vw Efoztdtd7292-79-55 16:20:14EXAMINATION: XR ABDOMEN 1 VW PORTABLE CLINICAL HISTORY: Abdominal pain post op COMPARISON: No prior IMPRESSION:1.Residual barium within the colon throughout. No small bowel obstruction noted. [facility]2U [id number] Interface, Radiology Results Incoming - 04/30/2020 10:23 AM CST EXAMINATION: XR ABDOMEN 1 VW PORTABLECLINICAL HISTORY: Abdominalpain post opCOMPARISON: No priorIMPRESSION:1.Residual barium within the colon throughout. No smallbowel obstruction noted.[facility]-[id number] PhtpdazkCpltia5496-36-03 20:57:57Carlee Malloy MD 04/28/2020 2:59 PMAirwayPerformed by: Carlee Malloy MDAuthorized by: Carlee Malloy MD Location: ORUrgency: ElectiveDifficult Airway: No Anesthesiologist: Kvng Malloy MDResident/LIME SPREADER/AA: Allan Morocho DOPerformed by: resident/LIME SPREADER/AAPreoxygenated rvwb571% O2: Yes C- spine Precautions Maintained Throughout: [...] No Number of Attempts at Approach: 1 [facility] CampusTransthoracic Echocardiogram Complete, (w Contrast, Strain and 3D if needed)2020-04-28 00:20:00 Echocardiography Report [address] [address] Pat.Name: LIO WATTS.ID: [id number] .Date: 04/27/2020 Refer.MD: ELISEO ARCE MD Exam Time: 2:21:00 PM Study Type:Routine Echo Height: 64in Weight: 213lb BSA: 2.01 m2 Age: 9 1955,65Y Sex: FEMALE BP: 128/89 HR: 102 bpm Sonogrphr: SANKET Perkins Pat. Stat.:Inpatient Room: [facility] Study Status:Final Echo Event ID:[id number] Order ID: [id number] Reason for Study:Atrial FibrillationHistory / Clinical:Hypertension Procedures: [...] estimate PA systolic pressure. MEASUREMENTS: 2DParasternal Long [place] Ao An 2.2 cm LVPWd 1 cm [...] 04/27/2020 6:21 PM CST Echocardiography Report [address] [place] [address] Pat.Name: LIO WATTS Pat.ID: [id number] .Date: 04/27/2020 Refer.MD: ELISEO ARCE MD Exam Time: 2:21:00 PM Study Type:Routine Echo Height: 64in Weight: 213lb BSA: 2.01 m2 Age: 9 1955,65Y Sex: FEMALE BP: 128/89 HR: 102 bpm Sonogrphr: SANKET Perkins Pat. Stat.:Inpatient Room: [facility] 2021-A Study Status:Final Echo Event ID:[id number] Order ID: [id number] Reason for Study:Atrial FibrillationHistory / Clinical:Hypertension Procedures: [...] PA systolic pressure.- MEASUREMENTS: ---- 2DParasternal Long [place] Ao An 2.2 cm LVPWd 1 cm [...] LVOT CI 3.1 l/m/m2 Signed 04/27/2020 06:20 PMMoprisma health [facility] Mario, [facility] Esophagram Double Isetfbhv7339-84-83 18:07:12EXAMINATION: FL ESOPHAGRAM DOUBLE CONTRAST CLINICAL HISTORY: [...] spontaneous gastroesophageal reflux. [id number] Interface, Radiology Results [facility] - 04/25/2020 12:10 PM CST [...] Wo Contrast Abdomen Wo Contrast Pelvis Wo Tumsumfy0983-22-16 15:23:55EXAMINATION: CT CHEST WO CONTRAST ABDOMEN WO [...] chronic and incidental findings as detailed above. [facility]-[id number] Dictated and approved by radiology resi dent/fellow: Jenna Valenzuela M.D. I, Medhat Flowers Jr., M.D., personally reviewed the images and resident's/fellow's findings and agree with the final report.[facility], Radiology Results Incoming - 04/21/2020 9:27 AM [...] aorta.4.Additional chronic and incidental findings as detailed above.[facility]-[id number] and approved by residential property consultant/fellow: Jenna Valenzuela M.D.I, Medhat lFowers Jr., M.D., personally reviewed the images and resident's/fellow's findings and agree with the final report. [facility], GC, TV,PCR, IN ZZIWF8889-34-76 15:38:00 Test Item Value Reference Range Interpretation Comments FT (test code = CHTR) Not detected (qualifier Not Detected N value) FT (test code = Not detected (qualifier Not Detected N NGONO) value) FT (test code = TRVG) Not detected (qualifier Not Detected N value) URINALYSIS WITH CXNXWWLBRHM0159-72-02 10:57:00 Test Item Value Reference Range Interpretation Comments Color (test code = UCOLR) Dk. Yellow Clarity (test code = UCLAR) Hazy Glucose (test code = UGLUC) NEGATIVE NEGATIVE N Bilirubin (test code = UBILI) NEGATIVE NEGATIVE N Ketones (test code = UKET) NEGATIVE NEGATIVE N Specific [place] (test code = 1.025 1.005-1.030 A USPGR) [...]
[2021-06-10 11:23] LABS: Absolute Lymphocytes (CBC) 1.6 K/uL (0.7-4.9); Hematocrit 38.9 % (36.0-45.0); Lymphocytes % 14.8 % (15.3-44.8); MPV 7.3 fL (7.6-11.3); RBC Red Blood Cell Count 4.93 M/uL (3.86-4.86)
--- NOTE | 2021-06-10 11:35 | RAD REPORT ---
EXAM DESCRIPTION: RAD - Chest Single View - 06/10/2021 11:25 am CLINICAL HISTORY: Chest pain;SOB COMPARISON: Chest Single View dated 06/07/2021; Chest Single View dated 06/06/2021; Chest Single View dated 05/30/2021; Chest Single View dated 05/28/2021; Abdomen Pelvis Wo Contrast dated 06/07/2021 FINDINGS: Lines: None. Lungs: Mild bilateral pulmonary opacities with similar appearance to 06/07/2021. Pleural: No pneumothorax or effusions. Cardiac: Cardiomegaly. Bones: No acute fractures. Shoulder arthroplasties. Other: IMPRESSION: Mild bilateral pulmonary opacities without significant change that may represent a combi nation of edema and/or pneumonia.
[2021-06-10 11:38] LABS: Protime INR 1.33
[2021-06-10 11:45] LABS: Albumin 2.9 g/dL (3.4-5.0); Bilirubin Direct 0.2 mg/dL (0-0.2); Bilirubin Total 0.5 mg/dL (0.2-1.0); Magnesium 1.8 mg/dL (1.8-2.4); Potassium 3.2 mmol/L (3.5-5.1); Protein, Total 7.1 g/dL (6.4-8.2); Troponin High Sensitivity 16.6 pg/mL (<58.9)
[2021-06-10 12:06] LABS: SARS-COV-2 RT PCR NEGATIVE (NEGATIVE)
--- NOTE | 2021-06-10 12:52 | ER ---
Nurse's Notes [facility] Name: Marjan Fleming Age: 66 yrs Sex: Female : 1955 Arrival Date: 06/10/2021 Time: 10:30 Bed 25 Private MD: Diagnosis: Chest pain, unspecified;Shortness of breath Presentation: 06/10 10:31 Chief complaint: EMS states: Pt states chest pain started last night while at rest. jh6 tight in nature worse with palpation. Was seen 2 days ago for similar s/s. Ebola Screen: Patient denies travel to an Ebola-affected area in the 21 days before illness onset. Initial Sepsis Screen: Does the patient meet any 2 criteria? No. Patient's initial sepsis screen is negative. Does the patient have a suspected source of infection? No. Patient's initial sepsis screen is negative. Risk Assessment: Do you want to hurt yourself or someone else? Patient reports no desire to harm self or others. Onset of symptoms was June 09, 2021. 10:31 Method Of Arrival: EMS: [facility] 10:31 Acuity: BLAYNE 2 6 10:44 Coronavirus screen: Vaccine status: Patient reports receiving the 2nd dose of the covid jh6 vaccine. Triage Assessment: 10:43 General: Appears in no apparent distress. comfortable, Behavior is calm, cooperative. jh6 Pain: Complains of pain in anterior aspect of left upper chest and right lateral anterior chest Pain currently is 4 out of 10 on a pain scale. Quality of pain is described as gnawing, Is continuous. Respiratory: Reports cough that is Airway is patent Trachea midline Respiratory effort is even, unlabored, relaxed, Respiratory pattern is regular, Onset: The symptoms/episode began/occurred yesterday, the patient has mild shortness of breath. Historical: - Allergies: 10:40 Bactrim DS; jh6 10:40 butorphanol tartrate; jh6 10:40 Fentanyl; jh6 10:40 Reglan; jh6 10:40 Stadol; jh6 10:40 sulfamethoxazole (bulk); jh6 10:40 TRIMETHOPRIM; jh6 - PMHx: 10:40 Anxiety; Atrial Fib; Bipolar disorder; Chronic pain; COPD; esophageal varices; jh6 Hepatitis; HIV; Hypertension; Migraines; Panic Attacks; - PSHx: 10:40 Appendectomy; Bilateral shoulder repair; Cholecystectomy; hernia repair; R wrist SX; jh6 - Immunization history:: Adult Immunizations up to date, Client reports receiving the 2nd dose of the Covid vaccine. - Social history:: Smoking status: Patient denies any tobacco usage or history of. Screenin:44 Abuse screen: Denies threats or abuse. Nutritional screening: No deficits noted. jh6 Tuberculosis screening: No symptoms or risk factors identified. Fall Risk None identified. Assessment: 10:44 Cardiovascular: Rhythm is regular. jh6 11:16 Respiratory: No deficits noted. Airway is patent Trachea midline Respiratory effort is jh6 even, unlabored, relaxed, Respiratory pattern is regular, Breath sounds are clear bilaterally. 12:15 Reassessment: Patient and/or family updated on plan of care and expected duration. Pain jh6 level reassessed. Patient is alert, oriented x 3, equal unlabored respirations, skin warm/dry/pink. General: Appears in no apparent distress. comfortable, Behavior is calm, cooperative. Pain: Complains of pain in back. Cardiovascular: No deficits noted. Capillary refill < 3 seconds. Respiratory: No deficits noted. Airway is patent Respiratory effort is even, unlabored, relaxed. 13:07 Reassessment: Patient and/or family updated on plan of care and expected duration. Pain jh6 level reassessed. Vital Signs: 10:31 BP 140 / 90; Pulse 70; Resp 20; Temp 98.3(O); Pulse Ox 95% on 3 lpm NC; Weight 81.65 jh6 kg; Height 5 ft. 4 in. (162.56 cm); 10:41 BP 158 / 100; Pulse 67; Resp 20; Pulse Ox 99% ; jh6 12:16 BP 152 / 98; Pulse 62; Resp 20; Pulse Ox 97% on 3 lpm NC; jh6 13:07 BP 156 / 98; Pulse 65; Resp 20; Pulse Ox 97% on 3 lpm NC; jh6 10:31 Body Mass Index 30.90 (81.65 kg, 162.56 cm) 6 ED Course: 10:30 Patient arrived in ED. ds1 10:30 Karen Lo, RN is Primary Nurse. jh6 10:39 Triage completed. jh6 10:42 Arm band placed on right wrist. jh6 10:44 Placed in gown. Bed in low position. Call light in reach. Side rails up X 1. jh6 10:47 Joey Jung MD is Attending Physician. kdr 11:16 Inserted saline lock: 24 gauge in right upper arm, using aseptic technique. Blood jh6 collected. 11:17 XRAY Chest (1 view) Sent. jh6 11:26 XRAY Chest (1 view) In Process Unspecified. EDMS 11:31 No provider procedures requiring assistance completed. jh6 13:08 IV discontinued, intact, bleeding controlled, No redness/swelling at site. Pressure jh6 dressing applied. Administered Medications: No medications were administered Outcome: 12:51 Discharge ordered by . kdr 13:08 Discharged to home ambulatory. jh6 13:08 Condition: stable 13:08 Discharge instructions given to patient, Instructed on discharge instructions, follow up and referral plans. Demonstrated understanding of instructions, follow-up care. 13:15 Patient left the ED. jh6 Signatures: Dispatcher [employer] EDWI Joey Jung MD MD [facility] Lainey Monson ds1 Karen Lo, ASHLEY RN jh6
--- NOTE | 2021-06-10 12:52 | EDPHYS ---
Physician Documentation [facility] Name: Marjan Fleming Age: 66 yrs Sex: Female : 1955 Arrival Date: 06/10/2021 Time: 10:30 Bed 25 Private MD: ED Physician Joey Jung HPI: 06/10 11:56 This 66 yrs old Female presents to ER via EMS with complaints of Shortness Of kdr Breath/chest pain. 11:56 Patient's had intermittent chest pain since this morning. She states she has not had kdr this kind of pain before. 11:57 The patient or guardian reports chest pain that is located primarily in the Upper kdr anterior left chest.. Onset: just prior to arrival. The pain radiates to left back. Associated signs and symptoms: The patient has no apparent associated signs or symptoms. The chest pain is described as aching. Severity of pain: At its worst the pain was mild. The patient has experienced similar episodes in the past, multiple times, chronically, States that this is the first time she has had this kind of pain in this area.. Historical: - Allergies: 10:40 Bactrim DS; jh6 10:40 butorphanol tartrate; jh6 10:40 Fentanyl; jh6 10:40 Reglan; jh6 10:40 Stadol; jh6 10:40 sulfamethoxazole (bulk); jh6 10:40 TRIMETHOPRIM; jh6 - PMHx: 10:40 Anxiety; Atrial Fib; Bipolar disorder; Chronic pain; COPD; esophageal varices; jh6 Hepatitis; HIV; Hypertension; Migraines; Panic Attacks; - PSHx: 10:40 Appendectomy; Bilateral shoulder repair; Cholecystectomy; hernia repair; R wrist SX; jh6 - Immunization history:: Adult Immunizations up to date, Client reports receiving the 2nd dose of the Covid vaccine. - Social history:: Smoking status: Patient denies any tobacco usage or history of. ROS: 11:57 Constitutional: Negative for fever, chills, and weight loss, Eyes: Negative for injury, kdr pain, redness, and discharge, Neck: Negative for injury, pain, and swelling, Cardiovascular: Negative for chest pain, palpitations, and edema, Respiratory: Negative for shortness of breath, cough, wheezing, and pleuritic chest pain, Abdomen/GI: Negative for abdominal pain, nausea, vomiting, diarrhea, and constipation, Back: Negative for injury and pain, MS/Extremity: Negative for injury and deformity, Skin: Negative for injury, rash, and discoloration, Neuro: Negative for headache, weakness, numbness, tingling, and seizure activity. Psych: Negative for depression, anxiety, suicide ideation, homicidal ideation, and hallucinations, Allergy/Immunology: Negative for hives, rash, and allergies, Endocrine: Negative for neck swelling, polydipsia, polyuria, polyphagia, and marked weight changes, Hematologic/Lymphatic: Negative for swollen nodes, abnormal bleeding, and unusual bruising. 11:57 Cardiovascular: Positive for chest pain, Negative for edema, orthopnea, palpitations, paroxysmal nocturnal dyspnea. 11:57 Respiratory: Positive for cough, dyspnea on exertion, shortness of breath, Negative for hemoptysis, orthopnea, pleurisy, shortness of breath. Exam: 11:57 Constitutional: This is a well developed, well nourished patient who is awake, alert, kdr and in no acute distress. Head/Face: Normocephalic, atraumatic. Eyes: Pupils equal round and reactive to light, extra-ocular motions intact. Lids and lashes normal. Conjunctiva and sclera are non-icteric and not injected. Cornea within normal limits. Periorbital areas with no swelling, redness, or edema. Neck: Trachea midline, no thyromegaly or masses palpated, and no cervical lymphadenopathy. Supple, full range of motion without nuchal rigidity, or vertebral point tenderness. No Meningismus. Chest/axilla: Normal chest wall appearance and motion. Nontender with no deformity. No lesions are appreciated. Cardiovascular: Regular rate and rhythm with a normal S1 and S2. No gallops, murmurs, or rubs. Normal PMI, no JVD. No pulse deficits. Respiratory: Lungs have equal breath sounds bilaterally, clear to auscultation and percussion. No rales, rhonchi or wheezes noted. No increased work of breathing, no retractions or nasal flaring. Abdomen/GI: Soft, non-tender, with normal bowel sounds. No distension or tympany. No guarding or rebound. No evidence of tenderness throughout. Back: No spinal tenderness. No costovertebral tenderness. Full range of motion. Skin: Warm, dry with normal turgor. Normal color with no rashes, no lesions, and no evidence of cellulitis. MS/ Extremity: Pulses equal, no cyanosis. Neurovascular intact. Full, normal range of motion. Neuro: Awake and alert, GCS 15, oriented to person, place, time, and situation. Cranial nerves II-XII grossly intact. Motor strength 5/5 in all extremities. Sensory grossly intact. Cerebellar exam normal. Normal gait. Psych: Awake, alert, with orientation to person, place and time. Behavior, mood, and affect are within normal limits. 12:14 ECG was reviewed by the Attending Physician. kdr Vital Signs: 10:31 BP 140 / 90; Pulse 70; Resp 20; Temp 98.3(O); Pulse Ox 95% on 3 lpm NC; Weight 81.65 jh6 kg; Height 5 ft. 4 in. (162.56 cm); 10:41 BP 158 / 100; Pulse 67; Resp 20; Pulse Ox 99% ; 6 12:16 BP 152 / 98; Pulse 62; Resp 20; Pulse Ox 97% on 3 lpm NC; 6 13:07 BP 156 / 98; Pulse 65; Resp 20; Pulse Ox 97% on 3 lpm NC; 6 10:31 Body Mass Index 30.90 (81.65 kg, 162.56 cm) [facility] MDM: 12:51 Patient medically screened. kdr 15:38 Data reviewed: vital signs, nurses notes, lab test result(s), EKG, radiologic studies. kdr Counseling: I had a detailed discussion with the patient and/or guardian regarding: the historical points, exam findings, and any diagnostic results supporting the discharge/admit diagnosis, lab results, radiology results, the need for outpatient follow up. 06/10 10:48 Order name: Basic Metabolic Panel; Complete Time: 11:51 [facility] 06/10 10:48 Order name: CBC with Diff; Complete Time: :51 [facility] 06/10 10:48 Order name: LFT's; Complete Time: :51 [facility] 06/10 10:48 Order name: Magnesium; Complete Time: :51 [facility] 06/10 10:48 Order name: NT PRO-BNP; Complete Time: 11:51 [facility] 06/10 10:48 Order name: PT-INR; Complete Time: 11: [facility] 06/10 10:48 Order name: Troponin HS; Complete Time: 11:51 [facility] 06/10 10:48 Order name: XRAY Chest (1 view); Complete Time: 11:51 [facility] 06/10 10:48 Order name: EKG; Complete Time: 10:49 [facility] 06/10 10:48 Order name: Cardiac monitoring; Complete Time: [facility] 06/10 10:48 Order name: EKG - Nurse/Tech; Complete Time: 11: [facility] 06/10 10:48 Order name: IV Saline Lock; Complete Time: [facility] 06/10 10:48 Order name: Labs collected and sent; Complete Time: : [facility] 06/10 10:48 Order name: COVID-19/FLU A+B (Document "Date of Onset" if Symptomatic); Complete Time: kdr 12:32 06/10 10:48 Order name: O2 Per Protocol; Complete Time: [facility] 06/10 10:48 Order name: O2 Sat Monitoring; Complete Time: : kdr EC:14 Rate is 62 beats/min. Rhythm is regular, Sinus Rhythm with No ectopy. QRS [place] is kdr Normal. MA interval is normal. QRS interval is normal. QT interval is normal. Clinical impression: NSR w/ Non-specific ST/T Changes. Administered Medications: No medications were administered Disposition Summary: 06/10/21 12:51 Discharge Ordered Location: Home kdr Problem: new kdr Symptoms: have improved kdr Condition: Stable kdr Diagnosis - Chest pain, unspecified kdr - Shortness of breath kdr Followup: kdr - With: Private Physician - When: 2 - 3 days - Reason: If symptoms return, Further diagnostic work-up, Recheck today's complaints, Continuance of care, Re-evaluation by your physician Discharge Instructions: - Discharge Summary Sheet kdr - Shortness of Breath, Adult, [id number] kdr - Nonspecific Chest Pain, Adult, [id number] kdr Forms: - Medication Reconciliation Form kdr - Thank You Letter kdr Signatures: Dispatcher [employer] Joey Sanabria MD MD kdr Karen Lo RN RN jh6
[2021-06-10 13:41] VITALS: TEMP 98.3
[2021-06-10 14:14] VITALS: O2SAT 97
[2021-06-10 14:15] VITALS: BP 156/98
== END 2021-06-10 13:15 | disposition home or self-care (01) ==
LOC: ER 10:29
DX: R07.9 Chest pain, unspecified (principal); Z20.822 Contact with and (suspected) exposure to COVID-19; I10 Essential (primary) hypertension; Z21 Asymptomatic human immunodeficiency virus [HIV] infection status; J44.9 Chronic obstructive pulmonary disease, unspecified; Z88.1 Allergy status to other antibiotic agents; Z88.2 Allergy status to sulfonamides; Z88.5 Allergy status to narcotic agent; Z88.8 Allergy status to other drugs, medicaments and biological substances
CPT/HCPCS: 85025; 80048; 36415; 83735; 85610; 80076; 84484; 83880; 0240U; 71045; 93005; 99284

== ENCOUNTER 2021-06-18 19:25 | Inpatient (IN) | payer OTHER ==
[2021-06-18 20:49] LABS: Arterial Blood Carboxyhemoglob 1.5 % (0-1.5); Blood Gas Oxyhemoglobin 92.7 % (94-97); Blood O2 Saturation 95.1 % (92-98.5)
--- NOTE | 2021-06-18 21:04 | RAD REPORT ---
EXAM DESCRIPTION: Patrick Single View06/18/2021 8:46 pm CLINICAL HISTORY: sob COMPARISON: June 10, 2021 FINDINGS: The lungs appear clear of acute infiltrate. The heart is mildly enlarged IMPRESSION: No acute abnormalities displayed
[2021-06-18] MEDS ORDERED: MORPHINE 2 MG/ML SYR ONE ×2 (21:59→22:40)
[2021-06-18] MEDS ORDERED: ONDANSETRON 4 MG/2 ML VIAL ONE (21:59)
[2021-06-18 22:04] LABS: Absolute Lymphocytes (CBC) 1.3 K/uL (0.7-4.9); Hematocrit 33.5 % (36.0-45.0); Lymphocytes % 13.5 % (15.3-44.8); MPV 7.1 fL (7.6-11.3)
[2021-06-18 22:08] LABS: Protime INR 1.08
--- NOTE | 2021-06-18 22:14 | RAD REPORT ---
EXAM DESCRIPTION: US - Extremity Nonvascular Limited - 06/18/2021 9:06 pm CLINICAL HISTORY: Hematoma right groin COMPARISON: Left groin FINDINGS: Ill-defined hypo echoic area is present within the right groin. Measurements are difficult to determine but but appears to measure 4 x 2 centimeters IMPRESSION: A 4 centimeter hypoechoic area within the right groin presumably hematoma. If there is c linical concern for the hematoma extending into the pelvis CT scan would be recommended . The common femoral artery and vein were not evaluated. If desired a limited vascular ultrasound of th teresita vessels could be performed
[2021-06-18 22:24] LABS: Albumin 2.8 g/dL (3.4-5.0); Bilirubin Direct 0.1 mg/dL (0-0.2); Bilirubin Total 0.4 mg/dL (0.2-1.0); Potassium 3.1 mmol/L (3.5-5.1); Protein, Total 6.9 g/dL (6.4-8.2)
[2021-06-18 22:32] LABS: Troponin High Sensitivity 83.8 pg/mL (<58.9)
--- NOTE | 2021-06-18 22:48 | EDPHYS ---
Physician Documentation [facility] Name: Fawn Fleming Age: 66 yrs Sex: Female : 1955 Arrival Date: 06/18/2021 Time: 19:30 Bed 20 Private MD: ED Physician Hans Dawson HPI: 06/18 21:21 This 66 yrs old Female presents to ER via Wheelchair with complaints of Post Surgical pkl Bleeding, Post Surgical Pain. 21:21 The patient presents with pain, that is acute, swelling, ecchymosis. The complaints pkl affect the left groin. Onset: The symptoms/episode began/occurred today. Associated signs and symptoms: Pertinent positives: nausea, vomiting. Patient had placement of Watchman by Dr. Lund yesterday. Today complained pain, swelling, ecchymosis right groin. Patient also complained of nausea and vomiting. Historical: - Allergies: 19:37 Bactrim DS; vc1 19:37 butorphanol tartrate; vc1 19:37 Fentanyl; vc1 19:37 Reglan; vc1 19:37 Stadol; vc1 - PMHx: 19:37 Anxiety; Atrial Fib; Bipolar disorder; Chronic pain; COPD; esophageal varices; vc1 Hepatitis; HIV; Hypertension; Migraines; Panic Attacks; - PSHx: 19:37 Appendectomy; Bilateral shoulder repair; Cholecystectomy; hernia repair; R wrist SX; vc1 - Immunization history:: Adult Immunizations up to date, Client reports receiving the 2nd dose of the Covid vaccine. - Social history:: Smoking status: Patient denies any tobacco usage or history of. ROS: 21:29 Eyes: Negative for injury, pain, redness, and discharge, ENT: Negative for injury, pkl pain, and discharge, Neck: Negative for injury, pain, and swelling, Cardiovascular: Negative for chest pain, palpitations, and edema, Respiratory: Negative for shortness of breath, cough, wheezing, and pleuritic chest pain. 21:29 Abdomen/GI: Positive for nausea and vomiting. 21:29 Back: Negative for acute changes. 21:29 : Negative for urinary symptoms. 21:29 MS/extremity: Positive for ecchymosis, pain, swelling, of the right groin. 21:29 Neuro: Negative for altered mental status, loss of consciousness. Exam: 21:30 Head/Face: Normocephalic, atraumatic. Eyes: Pupils equal round and reactive to light, pkl extra-ocular motions intact. Lids and lashes normal. Conjunctiva and sclera are non-icteric and not injected. Cornea within normal limits. Periorbital areas with no swelling, redness, or edema. ENT: Nares patent. No nasal discharge, no septal abnormalities noted. Tympanic membranes are normal and external auditory canals are clear. Oropharynx with no redness, swelling, or masses, exudates, or evidence of obstruction, uvula midline. Mucous membranes moist. Neck: Trachea midline, no thyromegaly or masses palpated, and no cervical lymphadenopathy. Supple, full range of motion without nuchal rigidity, or vertebral point tenderness. No Meningismus. Chest/axilla: Normal chest wall appearance and motion. Nontender with no deformity. No lesions are appreciated. Cardiovascular: Regular rate and rhythm with a normal S1 and S2. No gallops, murmurs, or rubs. Normal PMI, no JVD. No pulse deficits. Respiratory: Lungs have equal breath sounds bilaterally, clear to auscultation and percussion. No rales, rhonchi or wheezes noted. No increased work of breathing, no retractions or nasal flaring. Abdomen/GI: Soft, non-tender, with normal bowel sounds. No distension or tympany. No guarding or rebound. No evidence of tenderness throughout. Back: No spinal tenderness. No costovertebral tenderness. Full range of motion. 21:30 Musculoskeletal/extremity: Extremities: grossly normal except: noted in the right groin: pain, swelling, ecchymosis. 21:30 Neuro: Orientation: is normal, Mentation: is normal, Cranial nerves: grossly normal, Motor: is normal. Vital Signs: 19:42 BP 150 / 95; Pulse 65; Resp 22; Pulse Ox 91% on R/A; Weight 95.71 kg; Height 5 ft. 4 vc1 in. (162.56 cm); Pain 8/10; 22:02 Pulse Ox 99% on NC; sf1 06/19 00:53 BP 140 / 79; Pulse 68; Resp 17; Temp 98; Pulse Ox 100% on R/A; Pain 7/10; sf1 06/18 19:42 Body Mass Index 36.22 (95.71 kg, 162.56 cm) vc1 MDM: 06/18 19:58 Patient medically screened. pkl 22:44 Data reviewed: vital signs, nurses notes, lab test result(s), EKG, radiologic studies, pkl plain films, ultrasound. ED course: Talked to Checo DHILLON ) For observation ( Dr. Qureshi ). 06/18 20:08 Order name: Basic Metabolic Panel; Complete Time: 22:33 pk 06/18 20:08 Order name: CBC with Diff; Complete Time: 22:31 pk 06/18 20:08 Order name: LFT's; Complete Time: :33 pk 06/18 20:08 Order name: Magnesium; Complete Time: :33 pk 06/18 20:08 Order name: NT PRO-BNP; Complete Time: :33 pk 06/18 20:08 Order name: PT-INR; Complete Time: 22:31 pk 06/18 20:08 Order name: Troponin HS; Complete Time: 22:33 pk 06/18 20:08 Order name: XRAY Chest (1 view); Complete Time: 21:20 pk 06/18 20:08 Order name: ABG; Complete Time: 21:20 pk 06/18 20:12 Order name: US Extrmty Nonvasular Limited; Complete Time: :31 pk 06/18 23:11 Order name: COVID-19 SARS RT PCR (Document "Date of Onset" if Symptomatic); Complete mw2 Time: :06/18 20:08 Order name: EKG; Complete Time: 20:09 pk 06/18 20:08 Order name: Cardiac monitoring; Complete Time: 21:32 pk 06/18 20:08 Order name: EKG - Nurse/Tech; Complete Time: 21:32 pk 06/18 20:08 Order name: IV Saline Lock; Complete Time: 21:55 pk 06/18 20:08 Order name: Labs collected and sent; Complete Time: 21:55 pk 06/18 20:08 Order name: O2 Per Protocol; Complete Time: 21:33 pk 06/18 20:08 Order name: O2 Sat Monitoring; Complete Time: :33 pk 06/18 23:52 Order name: CONS Physician Consult EDMS Administered Medications: 22:00 Drug: Zofran (Ondansetron) 4 mg Route: IVP; Site: right forearm; sf1 22:01 Drug: morphine 2 mg Route: IVP; Site: right forearm; sf1 22:43 Drug: morphine 2 mg Route: IVP; Site: right forearm; sf1 22:50 Drug: K-Dur (potassium chloride) 40 mEq Route: PO; sf1 Disposition Summary: 06/18/21 22:47 Hospitalization Ordered Hospitalization Status: Observation pkl Provider: Liz Qureshi pkl Location: Telemetry/MedSurg (observation) pkl Condition: Stable pkl Problem: new pkl Symptoms: are unchanged pkl Bed/Room Type: Standard pkl Room Assignment: 223(06/19/21 00:35) mw Diagnosis - Chest pain. Elevated Troponin. Hematoma right groin. S/P Watchman placementpkl Forms: - Medication Reconciliation Form pkl - SBAR form pkl Signatures: Dispatcher [employer] EDMS Gracia Monzon RN RN mw Hans Dawson MD MD pkl Deyanira Medina RN RN vc1 Paula Garcia RN RN sf1 Corrections: (The following items were deleted from the chart) 21:31 21:21 Patient had placement of Watchman by Dr. Lund yesterday. Today complained pain, pkl swelling, ecchymosis left groin. Patient also complained of nausea and vomiting. pkl 06/19 00:35 06/18 22:47 pkl mw
--- NOTE | 2021-06-18 22:48 | ER ---
Nurse's Notes [facility] Name: Fawn Fleming Age: 66 yrs Sex: Female : 1955 Arrival Date: 06/18/2021 Time: 19:30 Bed 20 Private MD: Diagnosis: Chest pain. Elevated Troponin. Hematoma right groin. S/P Watchman placement Presentation: 06/18 19:33 Chief complaint: Patient states: I'm hurting in my leg where they went in to put the vc1 watchman. Patient had surgery yesterday by the provider that works under Dr. Crane. Coronavirus screen: Vaccine status: Patient reports receiving the 2nd dose of the covid vaccine. [employer]. Ebola Screen: No symptoms or risks identified at this time. Risk Assessment: Do you want to hurt yourself or someone else? Patient reports no desire to harm self or others. Onset of symptoms was June 18, 2021 at 14:00. 19:33 Method Of Arrival: Wheelchair vc1 19:33 Acuity: BLYANE 3 vc1 Triage Assessment: 19:37 General: Appears in no apparent distress. uncomfortable, obese, Behavior is calm, vc1 cooperative, appropriate for age. Pain: Complains of pain in right inner thigh Pain radiates to abdomen Pain currently is 8 out of 10 on a pain scale. Neuro: No deficits noted. Cardiovascular: Reports chest pain, pain with cough. Respiratory: No deficits noted. GI: Reports lower abdominal pain, upper abdominal pain. : Reports incontinence. Historical: - Allergies: 19:37 Bactrim DS; vc1 19:37 butorphanol tartrate; vc1 19:37 Fentanyl; vc1 19:37 Reglan; vc1 19:37 Stadol; vc1 - PMHx: 19:37 Anxiety; Atrial Fib; Bipolar disorder; Chronic pain; COPD; esophageal varices; vc1 Hepatitis; HIV; Hypertension; Migraines; Panic Attacks; - PSHx: 19:37 Appendectomy; Bilateral shoulder repair; Cholecystectomy; hernia repair; R wrist SX; vc1 - Immunization history:: Adult Immunizations up to date, Client reports receiving the 2nd dose of the Covid vaccine. - Social history:: Smoking status: Patient denies any tobacco usage or history of. Screenin/28 00:48 Abuse screen: Denies threats or abuse. Nutritional screening: No deficits noted. sf1 Tuberculosis screening: No symptoms or risk factors identified. Fall Risk None identified. Vital Signs: 06/18 19:42 BP 150 / 95; Pulse 65; Resp 22; Pulse Ox 91% on R/A; Weight 95.71 kg; Height 5 ft. 4 vc1 in. (162.56 cm); Pain 8/10; 22:02 Pulse Ox 99% on NC; sf1 06/19 00:53 BP 140 / 79; Pulse 68; Resp 17; Temp 98; Pulse Ox 100% on R/A; Pain 7/10; sf1 06/18 19:42 Body Mass Index 36.22 (95.71 kg, 162.56 cm) vc1 ED Course: 06/18 19:30 Patient arrived in ED. ja2 19:37 Triage completed. vc1 19:42 Arm band placed on right wrist. vc1 19:58 Hans Dawson MD is Attending Physician. pkl 20:22 Paula Garcia RN is Primary Nurse. sf1 20:46 XRAY Chest (1 view) In Process Unspecified. EDMS 21:05 US Extrmty Nonvasular Limited In Process Unspecified. EDMS 21:48 Inserted saline lock: 20 gauge in right antecubital area, using aseptic technique. tw5 forearm, using aseptic technique. ,using aseptic technique. Ultrasound guided IV in place Blood collected. 21:55 Troponin HS Sent. sf1 21:55 PT-INR Sent. sf1 21:55 NT PRO-BNP Sent. sf1 21:55 Magnesium Sent. sf1 21:55 LFT's Sent. sf1 21:55 CBC with Diff Sent. sf1 21:55 Basic Metabolic Panel Sent. sf1 22:32 Notified ED physician of a critical lab result(s). troponin 83.8. tw5 22:45 Liz Qureshi MD is Hospitalizing Provider. pkl 23:35 COVID-19 SARS RT PCR (Document "Date of Onset" if Symptomatic) Sent. mw2 06/19 00:48 Patient has correct armband on for positive identification. sf1 00:48 No provider procedures requiring assistance completed. sf1 Administered Medications: 06/18 22:00 Drug: Zofran (Ondansetron) 4 mg Route: IVP; Site: right forearm; sf1 22:01 Drug: morphine 2 mg Route: IVP; Site: right forearm; sf1 22:43 Drug: morphine 2 mg Route: IVP; Site: right forearm; sf1 22:50 Drug: K-Dur (potassium chloride) 40 mEq Route: PO; sf1 Outcome: 22:47 Decision to Hospitalize by Provider. manohar 06/19 00:54 Admitted to Med/surg accompanied by nurse, via wheelchair, Report called to Whitney Huang 01:15 Patient left the ED. 1 Signatures: Dispatcher [employer] EDMS Hans Dawson MD MD pkl Shimon Ruiz mw2 Sharee Darnell Tiffany tw5 Deyanira Medina RN RN vc1 Paula Garcia RN RN sf1
[2021-06-18] MEDS ORDERED: POTASSIUM CL SA 10 MEQ TAB PO ONE (22:49)
--- NOTE | 2021-06-19 00:56 | P.HP ---
Certification for Inpatient Patient admitted to: Observation With expected LOS: <2 Midnights Patient will require the following post-hospital care: None Practitioner: I am a practitioner with admitting privileges, knowledge of patient current condition, hospital course, and medical plan of care. Services: Services provided to patient in accordance with Admission requirements found in Title 42 Section 412.3 of the Code of Federal Regulations <Checo Guerrero - Last Filed: 06/19/21 00:51> Patient History Date of Service: 06/18/21 Reason for admission: chest pain, hematoma History of Present Illness: Ms. Fleming is a 66 yo F with CAD, atrial fibrillation on eliquis, CHF, COPD on Home O2, HTN, HIV, AoCD, HLD who presents with one day of chest pain and ecchymosis. She had an outpatient Watchman procedure done yesterday. This morning she woke up with sharp chest pain over her left chest and under her left breast that lasts for a few minutes at at time. She says the pain is worse when she coughs. She was instructed to stop taking her eliquis on Tuesday and then resume her eliquis after the procedure for 5 more weeks. This morning, she woke up with a large ecchymosis and hematoma over her right groin. She had a cardiac ablation done in April, and is supposed to follow with cardiology on 06/26. She says none of her other home medications have been changed. She also reports vomiting beginning this morning. Hemoglobin 10.3 MCV 79.7 K 3.1 BUN 20 GFR 50 BNP 1881 troponin 83.8 Right groin US FINDINGS: Ill-defined hypo echoic area is present within the right groin. Measurements are difficult to determine but but appears to measure 4 x 2 centimeters IMPRESSION: A 4 centimeter hypoechoic area within the right groin presumably hematoma. If there is clinical concern for the hematoma extending into the pelvis CT scan would be recommended . The common femoral artery and vein were not evaluated. If desired a limited vascular ultrasound of these vessels could be performed CXR FINDINGS: The lungs appear clear of acute infiltrate. The heart is mildly enlarged IMPRESSION: No acute abnormalities displayed - Past Medical/Surgical History Diabetic: No -: HIV diag ~ [address] Yohan Cardenas in [place] -: CAD -: Bipolar disorder Dr Krause in [place] -: Hypertension -: COPD on home O2 -: Tobacco abuse -: former Alcohol abuse -: Anemia likely of chronic disease -: Hyperlipidemia -: GERD with hiatal hernia -: Atrial fibrillation on chronic anticoagulation therapy -: Chronic diastolic CHF -: Appendectomy -: Cholecystectomy -: left and right shoulder rotator cuff repair -: Right foot repair -: Right shoulder replacement -: left shoulder rotated cuff -: hiatal hernia repair february 2021 -: right wrist Psychosocial/ Personal History: She lives at home. She is not . - Family History Father -: Heart disease, Hypertension, Lung disease, GI disease, Diabetes, Stroke, Liver disease, Kidney disease Mother -: Hypertension, Lung disease, GI disease, Blood disorders, Other (see notes) Notes: Epilepsy, chronic pain, leukemia - Social History Smoking Status: Former smoker Alcohol use: No CD- Drugs: No Caffeine use: Yes Place of Residence: Home <Checo Guerrero - Last Filed: 06/19/21 00:51> Date of Service: 06/18/21 <Liz Qureshi - Last Filed: 06/22/21 02:46> Allergies fentanyl Allergy (Severe, Verified 03/31/21 11:11) Hives butorphanol tartrate [From Stadol] Allergy (Verified 03/31/21 11:11) confusion metoclopramide HCl [From Reglan] Allergy (Verified 03/31/21 11:11) Shortness of breath sulfamethoxazole [From Bactrim] Allergy (Verified 03/31/21 11:11) Hives/Rash trimethoprim [From Bactrim] Allergy (Verified 03/31/21 11:11) Hives/Rash Bactrim DS Allergy (Intermediate, Uncoded 03/31/21 11:11) Nausea/Vomiting Home Medications: Raltegravir Potassium [Isentress] 1 tab PO BID 02/28/12 Sertraline [Zoloft*] 2 tab PO DAILY 09/15/12 Metoprolol Tartrate 100 mg PO BID #60 tablet 02/03/20 Apixaban [Eliquis] 1 tab PO BID 07/30/20 Emtricitabine/Tenofov Alafenam [Descovy 200-25 mg Tablet] 1 tab PO DAILY 03/05/21 Hydralazine HCl 50 mg PO TID 03/05/21 Amlodipine Besylate 1 tab PO DAILY 03/30/21 Buspirone HCl 30 mg PO BID 03/30/21 Dexlansoprazole [Dexilant] 60 mg PO DAILY 03/30/21 Docusate/Senna [Senokot-S*] 1 tab PO DAILY PRN 03/30/21 buPROPion HCL [Bupropion Xl] 1 tab PO DAILY 04/03/21 Ferrous Sulfate [Iron] 325 mg PO DAILY 30 Days #30 tablet 04/15/21 Albuterol Inhaler [Ventolin Inhaler*] 2 puff IH TID PRN #1 05/28/21 Amiodarone HCl [Cordarone*] 200 mg PO DAILY #30 tab 05/28/21 Lisinopril [Zestril] 1 tab PO DAILY #30 05/28/21 Mometasone/Formoterol [Dulera 200 Mcg/5 Mcg Inhaler] 2 puff IH BID #1 inhaler 05/28/21 Prednisone [Sterapred Ds] 10 mg PO SEECOM #21 tab 05/28/21 Furosemide [Lasix] 40 mg PO BID #60 tablet 06/08/21 predniSONE [Prednisone*] 20 mg PO BID #10 tab 06/08/21 Atorvastatin Calcium [Lipitor] 40 mg PO BEDTIME #60 tab 06/20/21 Benzonatate [Tessalon Perle*] 100 mg PO TID PRN #30 cap 06/20/21 Hydrocodone/Chlorphen Polis [Tussionex Oral Susp*] 5 ml PO BID PRN #100 ml 06/20/21 Pantoprazole [Protonix Tab*] 40 mg PO BIDAC #60 tab 06/20/21 Review of Systems 10-point ROS is otherwise unremarkable Cardiovascular: Chest Pain Gastrointestinal: Vomiting Musculoskeletal: Leg Pain <Checo Guerrero - Last Filed: 06/19/21 00:51> Physical Examination - Physical Exam General: Alert, In no apparent distress, Obese HEENT: Atraumatic, PERRLA, Mucous membr. moist/pink, EOMI, Sclerae nonicteric Neck: Supple, 2+ carotid pulse no bruit, No LAD, Without JVD or thyroid abnormality Respiratory: Diminished, Expiratory wheezes Cardiovascular: No edema, Regular rate/rhythm, Normal S1 S2, No gallops, No rubs, No murmurs Gastrointestinal: Normal bowel sounds, No tenderness Musculoskeletal: No tenderness Integumentary: Tenderness/swelling, Other (ecchymosis from inner right thigh extending over mons pubis) Neurological: Normal speech, Normal strength at 5/5 x4 extr, Normal tone, Normal affect Lymphatics: No axilla or inguinal lymphadenopathy - Studies Laboratory Data (last 24 hrs) 06/18/21 21:47: PT 12.4, INR 1.08 06/18/21 21:47: WBC 9.60, Hgb 10.3 L, Hct 33.5 L, Plt Count 210 D 06/18/21 21:47: Sodium 140, Potassium 3.1 L, BUN 20 H, Creatinine 1.09, Glucose 110 H, Magnesium 2.0, Total Bilirubin 0.4, AST 20, ALT 24, Alkaline Phosphatase 73 <Checo Guerrero - Last Filed: 06/19/21 00:51> Assessment and Plan - Problems (Diagnosis) (1) Presence of Watchman left atrial appendage closure device Status: Acute (2) H/O cardiac radiofrequency ablation Status: Chronic (3) Hematoma Status: Acute (4) CHF (congestive heart failure) Status: Chronic Qualifiers: Heart failure type: unspecified Heart failure chronicity: chronic Qualified Code(s): I50.9 - Heart failure, unspecified (5) Chest pain Onset Date: 02/26/16 Status: Acute Qualifiers: Chest pain type: unspecified Qualified Code(s): R07.9 - Chest pain, unspecified (6) Diabetes mellitus Status: Chronic Qualifiers: Diabetes mellitus type: type 2 Diabetes mellitus care home insulin use: unspecified care home insulin use status Diabetes mellitus complication status: with kidney complications Diabetes mellitus complication detail: with chronic kidney disease Chronic kidney disease stage: stage 3 (moderate) Chronic kidney disease stage 3 subtype: stage 3a (GFR 45-59) Qualified Code(s): E11.22 - Type 2 diabetes mellitus with diabetic chronic kidney disease; N18.31 - Chronic kidney disease, stage 3a (7) Anemia of chronic disease Status: Chronic (8) Atrial fibrillation Status: Chronic Qualifiers: Atrial fibrillation type: unspecified Qualified Code(s): I48.91 - Unspecif ied atrial fibrillation (9) Bipolar disorder Onset Date: 05/26/15 Status: Chronic (10) COPD (chronic obstructive pulmonary disease) Onset Date: 05/26/15 Status: Chronic (11) Depressive disorder Onset Date: 05/26/15 Status: Chronic (12) HIV (human immunodeficiency virus infection) Status: Chronic Qualifiers: HIV symptom status: unspecified Qualified Code(s): B20 - Human immunodeficiency virus [HIV] disease (13) Hypertension Status: Chronic Qualifiers: Hypertension type: primary hypertension Qualified Code(s): I10 - Essential (primary) hypertension - Plan cardiology consulted, hold eliquis on telemetry, trend troponins, repeat EKG continue metoprolol and statin lipid and thyroid panel pending morphine as needed for pain control antiemetics as needed hydralazine PRN for BP spikes reconcile and continue home medication DVT ppx Discharge Plan: Home Plan to discharge in: 24 Hours - Advance Directives Does patient have a Living Will: No Does patient have a Durable POA for Healthcare: No - Code Status/Comfort Care Code Status Assessed: Yes (full code ) Critical Care: No Time Spent Managing Pts Care (In Minutes): 70 <Checo Guerrero - Last Filed: 06/19/21 00:51> - Problems (Diagnosis) (1) Hematoma Status: Acute (2) Presence of Watchman left atrial appendage closure device Status: Acute (3) CHF (congestive heart failure) Status: Chronic Qualifiers: Heart failure type: unspecified Heart failure chronicity: chronic Qualified Code(s): I50.9 - Heart failure, unspecified (4) H/O cardiac radiofrequency ablation Status: Chronic (5) Microcytic anemia Onset Date: 04/03/18 Status: Acute (6) Atrial fibrillation Status: Chronic Qualifiers: Atrial fibrillation type: unspecified Qualified Code(s): I48.91 - Unspecified atrial fibrillation (7) Bipolar disorder Onset Date: 05/26/15 Status: Chronic Qualifiers: (8) COPD (chronic obstructive pulmonary disease) Onset Date: 05/26/15 Status: Chronic Qualifiers: (9) Depressive disorder Onset Date: 05/26/15 Status: Chronic (10) Diabetes mellitus Status: Chronic Qualifiers: Diabetes mellitus type: type 2 Diabetes mellitus extermination inspector insulin use: unspecified care home insulin use status Diabetes mellitus complication status: with kidney complications Diabetes mellitus complication detail: with chronic kidney disease Chronic kidney disease stage: stage 3 (moderate) Chronic kidney disease stage 3 subtype: stage 3a (GFR 45-59) Qualified Code(s): E11.22 - Type 2 diabetes mellitus with diabetic chronic kidney disease; N18.31 - Chronic kidney disease, stage 3a (11) HIV (human immunodeficiency virus infection) Status: Chronic Qualifiers: HIV symptom status: unspecified Qualified Code(s): B20 - Human immunodeficiency virus [HIV] disease <Liz Qureshi - Last Filed: 06/22/21 02:46> Date of Service: 06/18/21 Subjective Agree with HPI as mentioned above Review of Systems 10-point ROS is otherwise unremarkable Physical Examination - Vital Signs Reviewed - Physical Exam General: Alert, In no apparent distress, Oriented x3 Respiratory: Clear to auscultation bilaterally, Normal air movement Cardiovascular: Regular rate/rhythm, Normal S1 S2 Gastrointestinal: Normal bowel sounds, No tenderness Musculoskeletal: No tenderness Integumentary: No rashes Neurological: Normal speech, Normal tone, Normal affect Assessment & Plan - Problems (Diagnosis) (1) Hematoma Current Visit: Yes Status: Acute (2) Presence of Watchman left atrial appendage closure device Current Visit: Yes Status: Acute (3) CHF (congestive heart failure) Current Visit: Yes Status: Chronic Qualifiers: Heart failure type: unspecified Heart failure chronicity: chronic Qualified Code(s): I50.9 - Heart failure, unspecified (4) H/O cardiac radiofrequency ablation Current Visit: Yes Status: Chronic (5) Microcytic anemia Onset Date: 04/03/18 Current Visit: No Status: Acute (6) Atrial fibrillation Current Visit: No Status: Chronic Qualifiers: Atrial fibrillation type: unspecified Qualified Code(s): I48.91 - Unspecified atrial fibrillation (7) Bipolar disorder Onset Date: 05/26/15 Current Visit: No Status: Chronic Qualifiers: (8) COPD (chronic obstructive pulmonary disease) Onset Date: 05/26/15 Current Visit: No Status: Chronic Qualifiers: (9) Depressive disorder Onset Date: 05/26/15 Current Visit: No Status: Chronic (10) Diabetes mellitus Current Visit: No Status: Chronic Qualifiers: Diabetes mellitus type: type 2 Diabetes mellitus extermination inspector insulin use: unspecified care home insulin use status Diabetes mellitus complication status: with kidney complications Diabetes mellitus complication detail: with chronic kidney disease Chronic kidney disease stage: stage 3 (moderate) Software Integrator jaswant kidney disease stage 3 subtype: stage 3a (GFR 45-59) Qualified Code(s): E11.22 - Type 2 diabetes mellitus with diabetic chronic kidney disease; N18.31 - Chronic kidney disease, stage 3a (11) HIV (human immunodeficiency virus infection) Current Visit: No Status: Chronic Qualifiers: HIV symptom status: unspecified Qualified Code(s): B20 - Human immunodeficiency virus [HIV] disease - Plan Agree with plan of care as mentioned below: 1. Serial troponins and EKG 2. Appreciate Cardiology consultation 3. Echocardiogram and stress test if cardiology is agreeable 4. Anti-platelet therapy, anti coagulation, beta-vitor, statin, and O2 as needed 5. IV morphine for pain 6. Strict BP and BS control 7. Resume HIV meds 8. H&H <Liz Qureshi - Last Filed: 06/22/21 02:46>
[2021-06-19 01:59] VITALS: BMI 36.2
[2021-06-19] MEDS ORDERED: ACETAMINOPHEN 500 MG TAB PO PRN (02:11)
[2021-06-19] MEDS: MORPHINE 2 MG/ML SYR IV PRN ×3 (02:35→17:13)
[2021-06-19] MEDS ORDERED: PANTOPRAZOLE 40MG TABLET PO ONE (03:06)
[2021-06-19 04:24] LABS: Absolute Lymphocytes (CBC) 1.3 K/uL (0.7-4.9); Hematocrit 34.8 % (36.0-45.0); Lymphocytes % 16.1 % (15.3-44.8); MPV 7.5 fL (7.6-11.3); RBC Red Blood Cell Count 4.39 M/uL (3.86-4.86)
[2021-06-19 04:53] LABS: Albumin 2.7 g/dL (3.4-5.0); Bilirubin Total 0.4 mg/dL (0.2-1.0); Ferritin 47.5 ng/mL (8-388); Phosphorus 2.5 mg/dL (2.5-4.9); Protein, Total 6.9 g/dL (6.4-8.2)
[2021-06-19 04:54] LABS: Magnesium 1.9 mg/dL (1.8-2.4); Potassium 3.5 mmol/L (3.5-5.1); Thyroid Stimulating Hormone 4.95 uIU/mL (0.360-3.740)
[2021-06-19] MEDS ORDERED: POTASSIUM CL SA 10 MEQ TAB PO ONE ×2 (05:14→09:00)
[2021-06-19] MEDS ORDERED: MAGNES/ALUMIN/SIMET 30ML UCUP PO ONE (05:28)
[2021-06-19] MEDS: BENZONATATE 100 MG CAP PO PRN ×3 (05:54→23:59)
[2021-06-19] MEDS ORDERED: METOPROLOL TAR 25 MG TAB PO SCH (06:00)
[2021-06-19] MEDS: METOPROLOL TAR 50 MG TAB PO SCH ×2 (08:53→21:09)
[2021-06-19] MEDS: AMIODARONE HCL 200 MG TAB PO SCH (08:54)
[2021-06-19] MEDS ORDERED: HYDROCODONE/CHLORPHEN 5 ML/OSYR PO PRN (10:39)
[2021-06-19] MEDS: ATORVASTATIN 40 MG TAB PO SCH (21:09)
[2021-06-19] MEDS: PANTOPRAZOLE 40MG TABLET PO SCH (21:09)
[2021-06-20] MEDS: ONDANSETRON 4 MG/2 ML VIAL IV PRN ×4 (00:08→20:06)
[2021-06-20] MEDS: MORPHINE 2 MG/ML SYR IV PRN ×4 (00:22→20:07)
[2021-06-20] MEDS: PANTOPRAZOLE 40MG TABLET PO SCH ×2 (05:07→16:42)
[2021-06-20] MEDS: HYDRALAZINE HCL 20 MG/ML VIAL IV PRN ×2 (05:41→16:39)
[2021-06-20] MEDS: METOPROLOL TAR 50 MG TAB PO SCH ×2 (09:00→20:59)
[2021-06-20] MEDS: AMIODARONE HCL 200 MG TAB PO SCH (09:00)
[2021-06-20 11:36] LABS: Absolute Lymphocytes (CBC) 1.2 K/uL (0.7-4.9); Hematocrit 31.2 % (36.0-45.0); Lymphocytes % 16.2 % (15.3-44.8); MPV 7.5 fL (7.6-11.3); RBC Red Blood Cell Count 3.94 M/uL (3.86-4.86)
[2021-06-20 11:43] LABS: Potassium 3.7 mmol/L (3.5-5.1)
[2021-06-20] MEDS: ATORVASTATIN 40 MG TAB PO SCH (20:06)
[2021-06-20] MEDS: BENZONATATE 100 MG CAP PO PRN (20:07)
--- NOTE | 2021-06-20 21:03 | PN ---
Date of Progress Note: 06/20/2021 Subjective: Seen by bedside. When I walked into the room, she was asleep. When she woke up, she st arted crying, complaining of severe epigastric pain. Does not have chest pain per se. Severe epigas tric pain that radiates to the left around the spleen area. Denies having any other complaints. Review of Systems: No chest pain. Has abdominal pain. No nausea, vomiting, or diarrhea. No dysuria, polyuria, or urin nancy urgency. All other systems reviewed are negative. Objective: Vital Signs: Reviewed. Temperature is 97.0, pulse 62, breathing at 18, blood pressure i s 145/72, saturating 97% on room air. General: Pleasant, middle-aged female, no apparent distress. Head and Neck: Pupils are equal, reactive to light. Intact eye movements. No JVD. No cervical lym phadenopathy. Neck supple. Thyroid is not enlarged. Lungs: Clear to auscultation bilaterally. No rhonchi, rales or crackles. Heart: Irregularly irregular. No extra sounds. Abdomen: Soft, nontender. Bowel sounds positive. No organomegaly. No masses or hernia. No rigidi ty or rebound. Extremities: No edema, clubbing, or cyanosis. Intact pulses. Skin: No rashes. Neurologic: Alert, awake, oriented x3. No acute focal deficits appreciated. Lymph Nodes: No cervical lymphadenopathy. Investigations: Troponins 53 and creatinine 0.89. Assessment And Recommendation: 1.Significant epigastric pain that travels to the chest. More than likely it is not cardiac. She i s very tender. I recommend CT scan of abdomen, pelvis and chest with IV contrast to further evaluate . 2.Borderline elevated troponin. I believe this is from the recent procedure of the Watchman. At th is point, I will monitor and plan for nuclear stress test as an outpatient as well as an echo. Thank you for the consult. /KIRTI Voice ID: [id number] Report ID: [id number]
--- NOTE | 2021-06-20 21:30 | CON ---
Date of Consultation: 06/19/2021 Reason For Consultation: Borderline elevated troponin, chest pain. History Of Present Illness: This is a 66-year-old female known to me from the office. She is status post left atrial appendage closure on this past Tuesday. She presented to the emergency room with some discomfort in her right groin plus chest pain, some ecchymosis of her groin and she has also so me dull epigastric abdominal pain. Evaluated by bedside. Chest pain was not there and she was comfo rtable. Has mild hematoma in the groin, but it is not increasing in size. Past Medical History: Coronary artery disease, atrial fibrillation, CHF, COPD, HIV, hypertension, hy perlipidemia. Medications: Refer reconciliation sheet for detailed list. Allergies: LONG LIST OF ALLERGIES WAS REVIEWED. Family History: No premature coronary artery disease or cancer. Social History: Does not drink. Does not use drugs. Review of Systems: All systems reviewed were negative except what mentioned in HPI. Physical Examination: Vital Signs: Reviewed. Head and Neck: Pupils are equal and reactive to light. Intact eye movements. No JVD. No cervical nodes. Neck is supple. Thyroid is not enlarged. Lungs: Clear to auscultation bilaterally. No rhonchi, rales, or crackles. No accessory muscle use. Heart: Regular rate and rhythm. No extra sounds. Abdomen: Soft, nontender. Bowel sounds positive. No organomegaly. No masses or hernia. No rigidi ty or rebound. Extremities: No clubbing, cyanosis. Intact pulses. Skin: No rashes noted. Neurologic: Alert, awake, oriented x3. No acute focal deficits appreciated. Investigations: Hemoglobin is 10.7, platelet count is 198. Troponin is 129. Assessment And Recommendation: 1.Elevated troponin. This could be due to the current procedure on the heart with the Watchman plac emlissette as there will be some manipulation to the heart muscle. However, she has some chest pain. Let 's trend troponin further. If it keeps trending down and symptoms are improved, then we will plan fo r stress test as an outpatient. 2.Groin hematoma. It is very small. It was a venous access and I do not anticipate any problem and I do not recommend any further workup for that issue. We will just monitor clinically. Thank you for the consult. SR/MODL Voice ID: [id number] Report ID: [id number]
--- NOTE | 2021-06-21 01:26 | P.PN ---
Subjective Date of Service: 06/19/21 Subjective: No new changes, No C/O voiced, Improving Hematoma stable Review of Systems 10-point ROS is otherwise unremarkable Physical Examination - Vital Signs Temperature: 97.0 F Blood Pressure: 177/85 Pulse: 70 Respirations: 22 Pulse Ox (%): 95 - Physical Exam General: Alert, In no apparent distress, Oriented x3 HEENT: Atraumatic, PERRLA, EOMI Neck: Supple, JVD not distended Respiratory: Clear to auscultation bilaterally, Normal air movement Cardiovascular: Regular rate/rhythm, Normal S1 S2 Gastrointestinal: Normal bowel sounds, No tenderness Musculoskeletal: No tenderness Integumentary: No rashes Neurological: Normal speech, Normal tone, Normal affect Lymphatics: No axilla or inguinal lymphadenopathy - Studies Medications List Reviewed: Yes Assessment & Plan - Problems (Diagnosis) (1) Hematoma Current Visit: Yes Status: Acute (2) Presence of Watchman left atrial appendage closure device Current Visit: Yes Status: Acute (3) CHF (congestive heart failure) Current Visit: Yes Status: Chronic Qualifiers: Heart failure type: unspecified Heart failure chronicity: chronic Qualified Code(s): I50.9 - Heart failure, unspecified (4) H/O cardiac radiofrequency ablation Current Visit: Yes Status: Chronic (5) Microcytic anemia Onset Date: 04/03/18 Current Visit: No Status: Acute (6) Atrial fibrillation Current Visit: No Status: Chronic Qualifiers: Atrial fibrillation type: unspecified Qualified Code(s): I48.91 - Unspecified atrial fibrillation (7) Bipolar disorder Onset Date: 05/26/15 Current Visit: No Status: Chronic Qualifiers: (8) COPD (chronic obstructive pulmonary disease) Onset Date: 05/26/15 Current Visit: No Status: Chronic Qualifiers: (9) Depressive disorder Onset Date: 05/26/15 Current Visit: No Status: Chronic (10) Diabetes mellitus Current Visit: No Status: Chronic Qualifiers: Diabetes mellitus type: type 2 Diabetes mellitus alf insulin use: unspecified terminal supervisor insulin use status Diabetes mellitus complication status: with kidney complications Diabetes mellitus complication detail: with chronic kidney disease Chronic kidney disease stage: stage 3 (moderate) Chronic kidney disease stage 3 subtype: stage 3a (GFR 45-59) Qualified Code(s): E11.22 - Type 2 diabetes mellitus with diabetic chronic kidney disease; N18.31 - Chronic kidney disease, stage 3a (11) HIV (human immunodeficiency virus infection) Current Visit: No Status: Chronic Qualifiers: HIV symptom status: unspecified Qualified Code(s): B20 - Human immunodeficiency virus [HIV] disease - Plan 1. Serial troponins and EKG 2. Appreciate Cardiology consultation 3. Echocardiogram and stress test if cardiology is agreeable 4. Anti-platelet therapy, anti coagulation, beta-vitor, statin, and O2 as needed 5. IV morphine for pain 6. Strict BP and BS control 7. Resume HIV meds 8. H&H Discharge Plan: Home Plan to discharge in: Greater than 2 days - Advance Directives Does patient have a Living Will: No Does patient have a Durable POA for Healthcare: No - Code Status/Comfort Care Code Status Assessed: Yes Code Status: Full Code Critical Care: No Time Spent Managing PTS Care (In Minutes): 35
--- NOTE | 2021-06-21 01:28 | P.PN ---
Date of Service: 06/20/21 Subjective Subjective:Severe pain epigastric-CT pending Hematoma stable Review of Systems 10-point ROS is otherwise unremarkable Physical Examination - Vital Signs reviewed - Physical Exam General: Alert, In no apparent distress, Oriented x3 Respiratory: Clear to auscultation bilaterally, Normal air movement Cardiovascular: Regular rate/rhythm, Normal S1 S2 Gastrointestinal: Normal bowel sounds, No tenderness Neurological: Normal speech, Normal tone, Normal affect Assessment & Plan - Problems (Diagnosis) (1) Hematoma Current Visit: Yes Status: Acute (2) Presence of Watchman left atrial appendage closure device Current Visit: Yes Status: Acute (3) CHF (congestive heart failure) Current Visit: Yes Status: Chronic Qualifiers: Heart failure type: unspecified Heart failure chronicity: chronic Qualified Code(s): I50.9 - Heart failure, unspecified (4) H/O cardiac radiofrequency ablation Current Visit: Yes Status: Chronic (5) Microcytic anemia Onset Date: 04/03/18 Current Visit: No Status: Acute (6) Atrial fibrillation Current Visit: No Status: Chronic Qualifiers: Atrial fibrillation type: unspecified Qualified Code(s): I48.91 - Unspecified atrial fibrillation (7) Bipolar disorder Onset Date: 05/26/15 Current Visit: No Status: Chronic Qualifiers: (8) COPD (chronic obstructive pulmonary disease) Onset Date: 05/26/15 Current Visit: No Status: Chronic Qualifiers: (9) Depressive disorder Onset Date: 05/26/15 Current Visit: No Status: Chronic (10) Diabetes mellitus Current Visit: No Status: Chronic Qualifiers: Diabetes mellitus type: type 2 Diabetes mellitus mcc insulin use: unspecified oysterman insulin use status Diabetes mellitus complication status: with kidney complications Diabetes mellitus complication detail: with chronic kidney disease Chronic kidney disease stage: stage 3 (moderate) Chronic kidney disease stage 3 subtype: stage 3a (GFR 45-59) Qualified Code(s): E11.22 - Type 2 diabetes mellitus with diabetic chronic kidney disease; N18.31 - Chronic kidney disease, stage 3a (11) HIV (human immunodeficiency virus infection) Current Visit: No Status: Chronic Qualifiers: HIV symptom status: unspecified Qualified Code(s): B20 - Human immunodeficiency virus [HIV] disease - Plan Continue with POC as mentioned below: 1. CT abd and pelvis 2. Appreciate Cardiology consultation 3. Echocardiogram and stress test as an outpt 4. Anti-platelet therapy, anti coagulation, beta-vitor, statin, and O2 as needed 5. IV morphine for pain 6. Strict BP and BS control 7. Resume HIV meds 8. H&H
[2021-06-21] MEDS: MORPHINE 2 MG/ML SYR IV PRN ×2 (02:21→08:35)
[2021-06-21 06:23] LABS: Absolute Lymphocytes (CBC) 1.4 K/uL (0.7-4.9); Hematocrit 31.8 % (36.0-45.0); Lymphocytes % 16.8 % (15.3-44.8); MPV 7.6 fL (7.6-11.3); RBC Red Blood Cell Count 4.05 M/uL (3.86-4.86)
[2021-06-21 06:31] LABS: Potassium 3.6 mmol/L (3.5-5.1)
[2021-06-21 08:18] VITALS: TEMP 97
[2021-06-21] MEDS: ONDANSETRON 4 MG/2 ML VIAL IV PRN (08:33)
[2021-06-21] MEDS: PANTOPRAZOLE 40MG TABLET PO SCH (08:33)
[2021-06-21] MEDS: AMIODARONE HCL 200 MG TAB PO SCH (08:34)
[2021-06-21] MEDS: METOPROLOL TAR 50 MG TAB PO SCH (09:00)
[2021-06-21] MEDS ORDERED: POTASSIUM CL SA 10 MEQ TAB PO ONE (09:00)
[2021-06-21 09:37] VITALS: O2SAT 100
[2021-06-21 09:59] LABS: Blood Morphology Comment NOT SEEN (NOT SEEN); Platelet Estimate ADEQ; White Blood Cell Scan OK (OK)
--- NOTE | 2021-06-21 10:45 | RAD REPORT ---
EXAM DESCRIPTION: CT - Abdomen Pelvis W Contrast - 06/21/2021 9:50 am CLINICAL HISTORY: epigastric pain COMPARISON: Abdomen Pelvis W Contrast dated 02/01/2021; Abdomen Pelvis W Contrast dated 07/25/2020 TECHNIQUE: Biphasic, helical CT imaging of the abdomen and pelvis was performed following 100 ml non -ionic IV contrast. Oral contrast was given. All CT scans are performed using dose optimization technique as appropriate and may include automated exposure control or mA/KV adjustment according to patient size. FINDINGS: Chronic interstitial opacities are present. No cardiomegaly or pericardial effusion. The liver, spleen, and pancreas show no suspicious findings. Cholecystectomy clips are present. No ab normal biliary tree dilatation. Symmetric renal function is seen with no hydronephrosis or suspicious renal mass. No pyelonephritis o r acute parenchymal process. Multiple bilateral simple renal cysts are present. Largest is upper pole left kidney at 5.4 cm. No adrenal abnormalities. Contracted urinary bladder shows no gross abnormali ty. Uterus and ovaries show no suspicious findings. No gastric dilatation or gastric wall thickening. No duodenum abnormality seen. Small bowel loops are normal in diameter. No appendicitis findings. Appendix is not clearly defined and may be surgically absent. No active colon process identified. Moderate stool volume is seen in the colon. No free air, free fluid or peritoneal/ retroperitoneal inflammatory stranding. No retroperitoneal hematoma. There is stranding in the fatty tissues of the right groin. Compression bandaging is in place. Patient pre sumably had a recent vascular access procedure. No hernia, mass or bulky lymphadenopathy. No suspicious bony findings. IMPRESSION: Contrast enhanced CT abdomen and pelvis showing no acute or emergent finding. There is stranding in the fatty tissues of the right groin without a measurable hematoma. Compression materials in place. Patient presumably had a vascular access procedure recently performed. There is no retroperitoneal or inguinal hematoma. Pseudoaneurysm not suspected.
--- NOTE | 2021-06-21 11:16 | PN ---
Date of Progress Note: 06/21/2021 Subjective: Seen at bedside. Continues to have the same epigastric pain and she is scheduled to hav e CT scan this morning. Review of Systems: Abdominal pain and left upper quadrant pain and lower chest pain present. No shortness of breath. N o nausea, vomiting, diarrhea. No abdominal pain. No history of urinary urgency. All other systems reviewed are negative. Physical Examination: Vital Signs: Reviewed. Head and Neck: Pupils are equal, reactive to light. Intact eye movements. No JVD. No cervical lym phadenopathy. Neck is supple. Thyroid is not enlarged. Lungs: Clear to auscultation bilaterally. No rhonchi, rales, or crackles. No accessory muscle use. Heart: Regular rate and rhythm. No extra sounds. Abdomen: Soft, tender in the epigastric area. No rigidity or rebound. Extremities: No clubbing, cyanosis. Intact pulses. Skin: No rash. No nodules are noted. Neurologic: Alert, awake, oriented x3. No acute focal deficits appreciated. Investigations: Troponin last one was normal. Assessment And Recommendation: Epigastric pain and the left upper quadrant pain. Recommended CT sca n of abdomen, pelvis, and chest with IV contrast to further evaluate and from cardiology standpoint, the patient will need a stress test, which we will arrange for as an outpatient. Thank you for the consult. /KIRTI Voice ID: [id number] Report ID: [id number]
[2021-06-21] MEDS ORDERED: MAGNESIUM HYDROXIDE 8% 30 ML PO ONE (12:00)
[2021-06-21 12:18] VITALS: BP 122/72
--- NOTE | 2021-06-22 02:50 | P.DS ---
Discharge Date: 06/21/21 Disposition: ROUTINE DISCHARGE Discharge Condition: GOOD Reason for Admission: chest pain, hematoma Consultations: Cardiology - Problems (1) Hematoma Status: Acute (2) Presence of Watchman left atrial appendage closure device Status: Acute (3) CHF (congestive heart failure) Status: Chronic Qualifiers: Heart failure type: unspecified Heart failure chronicity: chronic Qualified Code(s): I50.9 - Heart failure, unspecified (4) H/O cardiac radiofrequency ablation Status: Chronic (5) Microcytic anemia Onset Date: 04/03/18 Status: Acute (6) Atrial fibrillation Status: Chronic Qualifiers: Atrial fibrillation type: unspecified Qualified Code(s): I48.91 - Unspecified atrial fibrillation (7) Bipolar disorder Onset Date: 05/26/15 Status: Chronic Qualifiers: (8) COPD (chronic obstructive pulmonary disease) Onset Date: 05/26/15 Status: Chronic Qualifiers: (9) Depressive disorder Onset Date: 05/26/15 Status: Chronic (10) Diabetes mellitus Status: Chronic Qualifiers: Diabetes mellitus type: type 2 Diabetes mellitus fpc insulin use: unspecified 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 insulin use 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 Diabetes mellitus complication status: with kidney complications Diabetes mellitus complication detail: with chronic kidney disease Chronic kidney disease stage: stage 3 (moderate) Chronic kidney disease stage 3 subtype: stage 3a (GFR 45-59) Qualified Code(s) : E11.22 - Type 2 diabetes mellitus with diabetic chronic kidney disease; N18.31 - Chronic kidney disease, stage 3a (11) HIV (human immunodeficiency virus infection) Status: Chronic Qualifiers: HIV symptom status: unspecified Qualified Code(s): B20 - Human immunodeficiency virus [HIV] disease Brief History of Present Illness: Patient is a 66-year-old female came to the hospital after cardiac catheterization. Patient developed a hematoma. She was admitted for further evaluation. Her troponins were elevated. But they have not had a significant change in the troponin. Patient will be admitted for further treatment. Patient had significant pain in the right groin region. This was evaluated with imaging studies. Patient was admitted for further evaluation. Hospital Course: Patient has done well during hospital stay. Hematoma is reabsorbing well. No significant tenderness at the time of discharge. CT of the abdomen was negative. At this time patient is stable for discharge. Vital Signs/Physical Exam: Temp Pulse Resp BP Pulse Ox 97.0 F 63 18 122/72 98 06/21/21 12:00 06/21/21 12:00 06/21/21 12:00 06/21/21 12:00 06/21/21 12:00 General: Alert, In no apparent distress, Oriented x3 Laboratory Data at Discharge: WBC 8.10 K/uL (4.3-10.9) 06/21/21 05:22 Hgb 10.1 g/dL (12.0-15.0) L 06/21/21 05:22 Hct 31.8 % (36.0-45.0) L 06/21/21 05:22 Plt Count 165 K/uL (152-406) 06/21/21 05:22 PT 12.4 SECONDS (9.5-12.5) 06/18/21 21:47 INR 1.08 06/18/21 21:47 Sodium 137 mmol/L (136-145) 06/21/21 05:22 Potassium 3.6 mmol/L (3.5-5.1) 06/21/21 05:22 BUN 13 mg/dL (7-18) 06/21/21 05:22 Creatinine 0.80 mg/dL (0.55-1.3) 06/21/21 05:22 Glucose 108 mg/dL (74-106) H 06/21/21 05:22 Phosphorus 2.5 mg/dL (2.5-4.9) 06/19/21 04:05 Magnesium 1.9 mg/dL (1.8-2.4) 06/19/21 04:05 Total Bilirubin 0.4 mg/dL (0.2-1.0) 06/19/21 04:05 AST 25 U/L (15-37) 06/19/21 04:05 ALT 22 U/L (12-78) 06/19/21 04:05 Alkaline Phosphatase 71 U/L (45-117) 06/19/21 04:05 Triglycerides 204 mg/dL (<150) H 06/19/21 04:05 Cholesterol 190 mg/dL (<200) 06/19/21 04:05 HDL Cholesterol 54 mg/dL (40-60) 06/19/21 04:05 Cholesterol/HDL Ratio 3.52 06/19/21 04:05 Home Medications: Raltegravir Potassium [Isentress] 1 tab PO BID 10/08/12 Sertraline [Zoloft*] 2 tab PO DAILY 09/15/12 Metoprolol Tartrate 100 mg PO BID #60 tablet 02/03/20 Apixaban [Eliquis] 1 tab PO BID 07/30/20 Emtricitabine/Tenofov Alafenam [Descovy 200-25 mg Tablet] 1 tab PO DAILY 03/05/21 Hydralazine HCl 50 mg PO TID 03/05/21 Amlodipine Besylate 1 tab PO DAILY 03/30/21 Buspirone HCl 30 mg PO BID 03/30/21 Dexlansoprazole [Dexilant] 60 mg PO DAILY 03/30/21 Docusate/Senna [Senokot-S*] 1 tab PO DAILY PRN 03/30/21 buPROPion HCL [Bupropion Xl] 1 tab PO DAILY 04/03/21 Ferrous Sulfate [Iron] 325 mg PO DAILY 30 Days #30 tablet 04/15/21 Albuterol Inhaler [Ventolin Inhaler*] 2 puff IH TID PRN #1 05/28/21 Amiodarone HCl [Cordarone*] 200 mg PO DAILY #30 tab 05/28/21 Lisinopril [Zestril] 1 tab PO DAILY #30 05/28/21 Mometasone/Formoterol [Dulera 200 Mcg/5 Mcg Inhaler] 2 puff IH BID #1 inhaler 05/28/21 Prednisone [Sterapred Ds] 10 mg PO SEECOM #21 tab 05/28/21 Furosemide [Lasix] 40 mg PO BID #60 tablet 06/08/21 predniSONE [Prednisone*] 20 mg PO BID #10 tab 06/08/21 Atorvastatin Calcium [Lipitor] 40 mg PO BEDTIME #60 tab 06/20/21 Benzonatate [Tessalon Perle*] 100 mg PO TID PRN #30 cap 06/20/21 Hydrocodone/Chlorphen Polis [Tussionex Oral Susp*] 5 ml PO BID PRN #100 ml 06/20/21 Pantoprazole [Protonix Tab*] 40 mg PO BIDAC #60 tab 06/20/21 New Medications: Atorvastatin Calcium [Lipitor] 40 mg PO BEDTIME #60 tab Pantoprazole [Protonix Tab*] 40 mg PO BIDAC #60 tab Benzonatate [Tessalon Perle*] 100 mg PO TID PRN #30 cap PRN Reason: Cough Hydrocodone/Chlorphen Polis [Tussionex Oral Susp*] 5 ml PO BID PRN #100 ml PRN Reason: Cough Physician Discharge Instructions: -DC IV and DC home -Follow-up with PCP in 1 to 2 weeks -Follow-up with Cardiology in 1 to 2 weeks -Please call Dr. Qureshi at [phone] if any questions regarding hospital stay -Please call nursing station at [phone] if any nursing or medication questions -Return to the emergency room if symptoms worsen Diet: AHA Activity: Fall precautions Followup: Lacey VARELA,Lele Peterson DO [Primary Care Provider] - (Call to schedule appointment) Time spent managing pt's care (in minutes): 35
== END 2021-06-21 13:35 | disposition home health service (06) | DRG 920 ==
LOC: ER 19:25 → ERHOLD 23:43 → 2ND 06-19 00:40 → OBSVTOIN 06-19 18:36
PROVIDERS: ADMIT Hospitalist; ATTEND Hospitalist
DX: L76.32 Postprocedural hematoma of skin and subcutaneous tissue following other procedure (principal); I50.32 Chronic diastolic (congestive) heart failure; I13.0 Hypertensive heart and chronic kidney disease with heart failure and stage 1 through stage 4 chronic kidney disease, or unspecified chronic kidney disease; N18.31 Chronic kidney disease, stage 3a; E11.22 Type 2 diabetes mellitus with diabetic chronic kidney disease; J44.9 Chronic obstructive pulmonary disease, unspecified; I48.91 Unspecified atrial fibrillation; I25.10 Atherosclerotic heart disease of native coronary artery without angina pectoris; F31.9 Bipolar disorder, unspecified; D63.8 Anemia in other chronic diseases classified elsewhere; D50.9 Iron deficiency anemia, unspecified; K21.9 Gastro-esophageal reflux disease without esophagitis; E78.5 Hyperlipidemia, unspecified; R77.8 Other specified abnormalities of plasma proteins; R58 Hemorrhage, not elsewhere classified; Y83.8 Other surgical procedures as the cause of abnormal reaction of the patient, or of later complication, without mention of misadventure at the time of the procedure; Z88.1 Allergy status to other antibiotic agents; Z88.5 Allergy status to narcotic agent; Z96.611 Presence of right artificial shoulder joint; Z95.818 Presence of other cardiac implants and grafts; Z88.8 Allergy status to other drugs, medicaments and biological substances; Z87.891 Personal history of nicotine dependence; Z90.49 Acquired absence of other specified parts of digestive tract; Z79.01 Long term (current) use of anticoagulants; Z99.81 Dependence on supplemental oxygen; Z21 Asymptomatic human immunodeficiency virus [HIV] infection status; Z79.52 Long term (current) use of systemic steroids; Z79.899 Other long term (current) drug therapy; Z20.822 Contact with and (suspected) exposure to COVID-19
CPT/HCPCS: 36415; 71045; 74177; 76882; 80048; 80053; 80061; 80076; 82728; 82805; 82947; 83540; 83735; 83880; 84100; 84439; 84443; 84466; 84484; 85025; 85610; 93005; 94760; 96374; 96375; 99285; G0378; J0360; J2270; J2405; Q9967; U0003

== ENCOUNTER 2021-06-25 12:44 | Inpatient (IN) | payer OTHER ==
--- OUTSIDE RECORDS SUMMARY | 2021-06-25 12:52 | XMS REPORT | Continuity of Care Document ---
:1955 Author Organization [facility] t Address [address] [place] [address] Care Team Providers Name Role Phone Francisco Rahman Primary Care Physician Ashely Attending Clinician Unavailable HEMATPOUR Attending Clinician Unavailable Doctor Unassigned, Name Attending Clinician Unavailable Ronald DHILLON Attending Clinician Prabhu SANCHEZ Attending Clinician Unavailable Luisana Maharaj NP Attending Clinician Yazmin JENKINS Attending Clinician [facility] Attending Clinician Unavailable Marika Bal Attending Clinician [...] Clinician Unavailable DO SYL Attending Clinician Unavailable Ashely Admitting Clinician Unavailable YAZMIN Admitting Clinician Unavailable DO SYL Admitting Clinician Unavailable Payers Payer Name Policy Type Policy Number Effective Date Expiration Date [facility] COMMUNITY PLAN [id number] 2012 [employer] 00:00:00 Problems Condition Condition Condition Status Onset Resolution Last Treating Co mments Source Name Details Category Date Date Treatment Clinician Date Gastropare Gastropare Disease Active Overview : Methodi sis sis 4-[address] 00:00: [facility] of this [facility] 00 note l might be different from the original. Added automatic ally from request for surgery [id number] Dysphagia Dysphagia Disease Active Overview: Methodi 4-[address] 00:00: g of this [facility]osp[facility] 00 note l might be different from the original. Added automatic ally from request for surgery [id number] CCL / EPS Diagnosis Active 2020-10-15 Memoria PVI 3-30 17:07:00 l ABLATION CCL / 00:00: [place] W/ CARTO / EPS PVI 00 GA / T ABLATION W/ CARTO / GA / T Active 08/19/2020 [facility] Food Food Disease Active 2019-05 Methodi intoleranc intoleranc 2-04 st e in adult e in adult 00:00: Ho spita 00 l S/p S/p Disease Active Methodi reverse reverse 30 st 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:00: Hospita shoulder shoulder 00 l arthroplas arthroplas ty ty Unstable Unstable Disease Active Metho di reverse reverse 3-31 st 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:00: Hospita shoulder shoulder 00 l arthroplas arthroplas ty ty Obesity Obesity Disease Active 2015-05 Univers (BMI (BMI 2-19 ity of 30-39.9) 30-39.9) 00:00: [place] [facility] Anemia Anemia Disease Active 2014-05 Univers 0-03 ity of 00:00: [place] [facility] Hypovolemi Hypovolemi Disease Active 2014-05 U nivers a due to a due to 0-02 ity of hemorrhage hemorrhage 00:[place] [facility] Chest pain Chest pain Disease Active 2014-05 U nivers 0- ity of 00:00: [place] [facility] 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:00: [place] shoulder shoulder 00 Medica l arthroplas arthroplas Br anch ty ty Posttrauma Posttrauma Disease Active U nivers tic stress tic stress 09-27 it y of disorder disorder 00:00: [place] [facility] 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 00:00: [place] virus virus Medical (HIV) (HIV) Branch disease disease Bipolar 2 Bipolar 2 Disease Active Uni vers disorder disorder 11-18 ity of 00:00: [place] [facility] Chronic Chronic Disease Active Univers hepatitis hepatitis 11-18 ity of C C 00:00: [place] [facility] Hypertensi Hypertensi Disease Active U nivers on on 11-18 ity of 00:00: [place] [facility] Allergies, Adverse Reactions, Alerts Allergy Allergy Status Severity Reaction(s) Onset Inactive Treating Comm ents Source Name Type Date Date Clinician sulfamet DA Active SV N/V [facility] hoxazole 1-25 Clear 00:00: Garcia [facility] trimetho DA Active SV [facility] prim 1-25 Clear 00:00: Garcia [facility] codeine DA Active SV N/V [facility] 1-25 Clear 00:00: Garcia [facility] Metoclop Propensi Active UT ramide ty to 12-12 Health adverse 00:00: reaction 00 s Butorpha Drug Active Unknown - Unive rs nol Allergy See comments 11-25 ity of 00:00: [place] 00 Medical Branch Sulfamet Propensi Active UT hoxazole [...] Active Hives Univer s prim ty to 2 ity of adverse 00:00: [place] reaction 00 Medical s Branch Fentanyl Allergy Active Unknown Other [facility] to 2 reaction( Health substanc 00:00: s): e 00 [...] Date Source Natural father Diabetes [facility] Natural father Other - see comments [facility] Natural [facility] Natural father Hypertension [facility] Natural father [facility] Natural mother Cancer [facility] Social History Social Habit Start Date Stop Date Quantity Comments Source History of tobacco Smoker [facility] Exposure to Not sure University SARS-CoV-2 (event) [facility] History [facility] Health Alcohol Comment History [facility] Health Alcohol Std Drinks History [facility] Alcohol Binge Alcohol intake 2021-02-23 2021-02-23 Ex-drinker [facility] 00:00:00 00:00:00 (finding) Cigarettes smoked 2020-12-08 2020-12-08 [place] [facility] current (pack [facility] 00:00[facility] - Reported Cigarette 2020-12-08 2020-12-08 [facility] 00:[facility]:00:00 Hospital Tobacco use and 2020-10-31 2020-10-31 Smokeless tobacco [facility] exposure 00:00:00 00:00:00 non-user History SDOH 2020-10-31 2020-10-31 1 [facility] Alcohol Frequency 00:00:00 00:00:00 Tobacco Comment 2015-02-14 2015-02-14 Smokes approx 1-2 Un iversity of 00:00:00 00:00:00 cigarettes per [place] [facility] porfirio day when she Branch smokes Sex [birth year] [facility] 00:00:00 00:00:00 Smoking Status Start Date Stop Date Source Former smoker 2020-12-08 00:00:00 2020-12-08 00:00:00 [facility] Unknown if ever smoked [facility] Medications Ordered Filled Start Stop Current Ordering Indication Dosage Frequency Signature Comments Components Source Medication Medication Date Date Medication? Clinician (SIG) Name Name buPROPion Yes [id number] 150mg Take 1 U nivers XL 1-24 tablet by ity of (WELLBUTRIN 00:00: mouth [place] XL) 150 mg 00 daily. Medical 24 hr Branch tablet busPIRone Yes [id number] 30mg Take 1 Un matt 30 mg 1-24 tablet by ity of tablet 00:00: mouth 2 [place] 00 (two) Medical times Branch daily. SERTraline Yes [id number] 200mg Take 2 Univers 100 mg 1-24 tablets by ity of tablet 00:00: mouth [place] 00 daily. Medical Branch LORazepam 1 Yes [id number] 1mg Take 1 Univers mg tablet 1-24 tablet by ity o f 00:00: mouth 3 [place] 00 (three) Medical times Branch daily as needed (anxiety). emtricitabi Yes [id number] Take one Univers ne-tenofovi 1-20 po daily ity of r alafen 00:00: [place] (DESCOVY) 00 Medical tablet Branch raltegravir Yes [id number] 400mg Take 1 Univers (ISENTRESS) 1-12 tablet by ity of 400 mg 00:00: mouth 2 [place] tablet 00 (two) Medical times Branch daily. LORazepam 1 2021- No [id number] 1mg Take 1 Univers mg tablet 1-03 -24 tablet by ity of 00:00: 00:00 mouth 3 [place] 00 :00 (three) Medical times Branch daily as needed (anxiety) for up to 21 days. SERTraline 2020-05 No [id number] 200mg Take 2 Univers 100 mg -12 06-24 tablets by ity of tablet 00:00: 00:00 mouth [place] 00 :00 daily. Medical Branch busPIRone 2020-05- No [id number] 30mg Take 1 U nivers 30 mg 2-12 06-24 tablet by ity of tablet 00:00: 00:00 mouth 2 [place] 00 :00 (two) Medical times Branch daily. buPROPion 2020-05- No [id number] 150mg Take 1 Univers XL 07-13 tablet by ity of (WELLBUTRIN 00:00: 00:[place] XL[place] 150 mg 00 :00 daily. Medical 24 hr Branch tablet LORazepam 2 2020-05- No [id number] 2mg Take 1 Univers mg tablet 06-28 tablet by ity of 00:00: 00:00 mouth 2 [place] 00 :00 (two) Medical times Branch daily as needed (anxiety). raltegravir 2021- No [id number] 400mg Take 1 Univers (ISENTRESS) 02-13 tablet by it y of 400 mg 00:00: 00:00 mouth 2 [place] tablet 00 :00 (two) Medical times Branch daily. metoprolol 2021- No [id number] Take 1 UT tartrate 12-15 tablet Health (Lopressor) 00:00: 05:59 (100 mg 100 MG 00 :00 total) by tablet mouth 2 (two) times a day AND 0.5 tablets (50 mg total) every night. metoprolol 2021- No [id number] Take 1 [facility] tartrate 12-15 tablet Health [...] (affected area in groin) hydrALAZINE Yes 50mg Q.[id number] Take 50 mg Methodi (APRESOLINE 7-19 [id number] mouth [address] ) 50 MG [...] Hospita tablet 25 daily. l nystatin-tr Yes [id number] Apply to [facility] iamcinolone 11-25 area(s) 3 ity of cream 00:00: (three) [place] 00 times Medical daily. Branch emtricitabi 2021- No [id number] Take one [facility] ne-tenofovi 11-25 01-20 po daily ity of r alafen 00:00: 00:00 [place] (DESCOVY) 00 :00 Medical tablet Branch budesonide- 2020- No 1{puff} QD Inhale 1 Methodi formoteroL 625 06-[address] (SYMBICORT) 19:37: 00:00 morning. H ospita 160-4.5 02 :00 l mcg/actuati on inhaler hydrALAZINE Yes [id number] 50mg Q.[id number] Take 1 UT (Apresoline 6-11 [id number] tablet (50 Health ) 50 MG 00:00: 3D mg total) tablet 00 by mouth 3 (three) times a day. hydrALAZINE 2020- No [id number] 50mg Q.[id number] Take 1 UT (Apresoline 6-01-30 [id number] tablet (50 Health ) 50 MG 00:00: 04:59 3D mg total) tablet 00 :00 by mouth 3 (three) times a day. hydrALAZINE 2020- No [id number] 50mg Q.[id number] Take 1 UT (Apresoline 6-01-30 [id number] tablet (50 Health ) 50 MG 00:00: 04:59 3D mg total) tablet 00 :00 by mouth 3 (three) times a day. hydrALAZINE 2020- No [id number] 50mg Q.[id number] Take 1 UT (Apresoline 10-31 [id number] tablet (50 Health ) 50 MG 00:00: 04:59 3D mg total) tablet 00 :00 by mouth 3 (three) times a day. hydrALAZINE 0 1- No [id number] 50mg Q.[id number] Take 1 UT (Apresoline 10-31 [id number] tablet (50 Health ) 50 MG 00:00: 04:59 3D mg total) tablet 00 :00 by mouth 3 (three) times a day. Breztri 2020-0 Yes UT Aerosphere 10-29 Health 160-9-4.8 00:00: MCG/ACT 00 aerosol Breztri 2020-0 Yes [facility] Aerosphere 10-29 Health 160-9-4.8 00:00: MCG/ACT 00 aerosol Breztri 2020-0 Yes [facility] Aerosphere 10-29 [facility] 160-9-4.8 00:00: MCG/ACT 00 aerosol Breztri 2020-0 Yes [facility] Aerosphere 10-29 Health 160-9-4.8 00:00: MCG/ACT 00 aerosol Breztri 2020-0 Yes [facility] Aerosphere 10-29 Health 160-9-4.8 00:00: MCG/ACT 00 aerosol albuterol [...] Health 2 % 00:00: ointment 00 nystatin 2020-0 2020- No [id number] Q.25D Take 5 mL Methodi (MYCOSTATIN 10-06 [...] 40 MG EC 00 tablet pantoprazol 2020-0 2020- No 40mg Q.5D Take 2 Met hodi e 4-16 05-[address] (Protonix) 00:00: 04:59 (40 mg Hosp soren 20 MG EC 00 :00 total) by l tablet mouth 2 (two) times a day for 30 days. esomeprazol 2020-0 2021- No 40mg Q.5D Take 40 mg Methodi e (NexIUM) 4-12 04-[address] 40 MG 13:54: 00:00 (two) Hospita capsule 18 :00 times a l day. LORAZepam No 2mg QD Take 2 mg Me thodi (ATIVAN) 2 09-[address] MG tablet 13:51: 00:00 [...] e 4-10 Tablet l 14:00: should not [place] 00 be chewed or crushed. (Same as: Protonix) Amiodarone No Notes: Memor ia 4-10 (Same as: l 14:00: Cordarone) [place] Amlodipine No Notes: Memor ia 4-10 (Same as: l 14:00: Norvasc) [place] emtricitabi No Notes: Caesar lisa ne 200 MG / 4-10 (Same as: l tenofovir 14:00: Descovy) Herm ariel alafenamide 00 Non-formul 25 MG Oral nancy Tablet [Descovy] Sertraline No Notes: Memor ia 4-10 (Same as: l 14:00: Zoloft) [place] Sertraline No Notes: Memor ia 4-10 (Same as: l 14:00: Zoloft) [place] pantoprazol No Notes: Caesar lisa e 4-10 Tablet l 14:00: should not [place] 00 be chewed or crushed. (Same as: [...] (Same as: l tenofovir 14:00: Descovy) Herm airel alafenamide 00 Non-formul 25 MG Oral nancy Tablet [Descovy] Sertraline No Notes: Memor ia 4-10 (Same as: l 14:00: Zoloft) pantoprazol No Notes: Caesar lisa e 4-10 Tablet l 14:00: should not [place] 00 be chewed or crushed. (Same as: [...] ia 4-10 (Same as: l 14:00: Zoloft) [place] 00 pantoprazol No Notes: Caesar lisa e 4-10 Tablet l 14:00: should not [place] 00 be chewed or crushed. (Same as: Protonix) Amiodarone No Notes: Memor ia 4-10 (Same as: l 14:00: Cordarone) [place] Amlodipine No Notes: Memor ia 4-10 (Same as: l 14:00: Norvasc) [place] emtricitabi No Notes: Caesar lisa ne 200 MG / 4-10 (Same as: l tenofovir 14:00: Descovy) Herm ariel alafenamide 00 Non-formul 25 MG Oral nancy Tablet [Descovy] Sertraline No Notes: Memor ia 4-10 (Same as: l 14:00: Zoloft) [place] pantoprazol No Notes: Caesar lisa e 4-10 Tablet l 14:00: should not [place] 00 be chewed or crushed. (Same as: Protonix) Amiodarone No Notes: Memor ia 4-10 (Same as: l 14:00: Cordarone) [place] Amlodipine No Notes: Memor ia 4-10 (Same as: l 14:00: Norvasc) [place] emtricitabi No Notes: Caesar lisa ne 200 MG / 4-10 (Same as: l tenofovir 14:00: Descovy) Herm ariel alafenamide 00 Non-formul 25 MG Oral nancy Tablet [Descovy] Sertraline No Notes: Memor ia 4-10 (Same as: l 14:00: Zoloft) [place] pantoprazol No Notes: Caesar lisa e 4-10 Tablet l 14:00: should not [place] 00 be chewed or crushed. (Same as: Protonix) Amiodarone No Notes: Memor ia 4-10 (Same as: l 14:00: Cordarone) [place] Sucralfate No Notes: May M emoria 4-10 interfere l 02:00: w/enteral [place] 00 feeds - Take 1 hr before [...] 0.9% 4-10 (Same as: l 02:00: BD [place] 00 Posiflush) Eliquis No Notes: Memoria 4-10 Same as: l 02:00: Eliquis [place] Hydralazine No Notes: Caesar lisa Hydrochlori 4-10 (Same as: l de 50 MG 02:00: Apresoline Her mitchell Oral Tablet 00 ) May interfere w/enteral feedings Take With Food Sucralfate No Notes: May M emoria 4-10 interfere l 02:00: w/enteral [place] 00 feeds - Take 1 hr before or 2 hr after antacids, dairy pdt, meals & minerals - On empty stomach. For patients unable to swallow tablet, dissolve in 10mL - 30mL of water or juice and stir before giving. (Same As: Carafate) Saline No Notes: Memoria Flush 0.9% 4-10 (Same as: l 02:00: BD [place] 00 Posiflush) Eliquis No Notes: Memoria 4-10 Same as: l 02:00: Eliquis [place] Hydralazine No Notes: Caesar lisa Hydrochlori 4-10 [...] Memoria 4-10 Same as: l 02:00: Eliquis [place] 00 Hydralazine No Notes: Caesar lisa Hydrochlori [...] 0.9% 4-10 (Same as: l 02:00: BD [place] 00 Posiflush) Eliquis No Notes: Memoria 4-10 Same as: l 02:00: Eliquis [place] Hydralazine No Notes: [place] lisa Hydrochlori 4-10 (Same as: l de 50 MG 02:00: Apresoline Her mitchell Oral Tablet 00 ) May interfere w/enteral feedings Take With Food Sucralfate No Notes: May M emoria 4-10 interfere l 02:00: w/enteral [place] 00 feeds - Take 1 hr before [...] Memoria 4-10 Same as: l 02:00: Eliquis [place] 00 Hydralazine No Notes: Caesar lisa Hydrochlori [...] not exceed l #3 00:12: 4gm/day of [place] acetaminop hen. (Same as: Tylenol with Codeine # 3) acetaminoph No Notes: Do M emoria en-codeine 4-10 not exceed l #3 00:12: 4gm/day of [place] acetaminop hen. (Same as: Tylenol with Codeine # 3) acetaminoph No Notes: Do M emoria en-codeine 4-10 not exceed l #3 00:12: 4gm/day of [place] acetaminop hen. (Same as: Tylenol with Codeine # 3) acetaminoph No Notes: Do M emoria en-codeine 4-10 not exceed l #3 00:12: 4gm/day of [place] acetaminop hen. (Same as: Tylenol with Codeine # 3) acetaminoph No Notes: Do M emoria en-codeine 4-10 not exceed l #3 00:12: 4gm/day of [place] acetaminop hen. (Same as: Tylenol with Codeine # 3) acetaminoph No Notes: Do M emoria en-codeine 4-10 not exceed l #3 00:12: 4gm/day of [place] acetaminop hen. (Same as: Tylenol with Codeine [...] oria 4-09 tab, l 22:00: Route: PO, [place] 00 Drug form: TAB, BID, Dosing Weight 97.273, kg, Start date: 08/29/20 17:00:00 CDT, Duration: 30 day, Stop date: 09/28/20 9:00:00 CDT metoprolol 2020-0 No 100 mg, 1 Me moria tartrate 4- tab, l 22:00: Route: PO, Marty Drug form: TAB, BID, Dosing Weight 97.273, kg, Start date: 08/29/20 17:00:00 CDT, Duration: 30 day, Stop date: 09/28/20 9:00:00 CDT Buspirone 2020-0 No Notes: Memori a 08-29 (Same As: l 22:00: BuSpar) Raltegravir 2020-0 No 400 mg, 1 M emoria 400 MG Oral 4-09 tab, l Tablet 22:00: Route: POSkylar nn [...] tartrate 4-09 tab, l 22:00: Route: PO, [place] 00 Drug form: TAB, BID, Dosing Weight [...] 0 Buspirone 1-0 No Notes: Memori a 4 (Same As: l 22:00: BuSpar) Lisinopril 1-0 [...] tab, l Tablet 22:00: Route: PO, [place]ylar [facility] Drug form: TAB, BID, Dosing Weight 97.273, [...] CDT, 0 Buspirone No Notes: Memori a 4- (Same As: l 22:00: BuSpar) Lisinopril 0 No 40 mg, 1 Mem oria 4-09 tab, l 22:00: Route: PO, [place] 00 Drug form: TAB, BID, Dosing Weight [...] Notes: Memoria 4-09 (Same l 17:07: as:MORPhin [place] 00 e Sulfate) Morphine No Notes: Memoria 4-09 (Same l 17:07: as:MORPhin [place] 00 e Sulfate) Morphine No Notes: Memoria 4-09 (Same l 17:07: as:MORPhin [place] 00 e Sulfate) Morphine 2020-0 No Notes: Memoria - (Same l 17:07: as:MORPhin [place] 00 e Sulfate) Morphine 2020-0 No Notes: Memoria - (Same l 17:07: as:MORPhin [place] 00 e Sulfate) buPROPion 1-0 No 150 mg, 1 Mem [...] tab, l extended 16:00: Route: PO, Her mitcehll release 00 Drug form: ERTAB, Q24H, Dosing [...] ONCE, Stop date: 08/29/20 10:40:00 CDT fentaNYL 2020- No Route: IV, Mem oria (ANES) 08-29 Drug form: l 15:40: INJ, ONCE, Stop date: 08/29/20 10:40:00 CDT pantoprazol 2020-0 Yes 40 mg = 1 M emoria e 40 mg 4-09 tab, PO, l oral 15:27: Daily, # [place] enteric 00 30 tab, 0 coated Refill(s), tablet Pharmacy: [facility] 149, 162.56, cm, 08/29/20 5:30:00 CDT, Height, 97.273, kg, 08/29/20 5:30:00 CDT, Weight pantoprazol 2020-0 Yes 40 mg = 1 M emoria e 40 mg 4-09 tab, PO, l oral 15:27: Daily, # [place] enteric 00 30 tab, 0 coated Refill(s), tablet Pharmacy: [facility] 149, 162.56, cm, 08/29/20 5:30:00 CDT, Height, 97.273, kg, 08/29/20 5:30:00 CDT, Weight pantoprazol 2020-0 Yes 40 mg = 1 M emoria e 40 mg 4-09 tab, PO, l oral 15:27: Daily, # [place] enteric 00 30 tab, 0 coated Refill(s), tablet Pharmacy: [facility] 149, 162.56, cm, 08/29/20 5:30:00 CDT, Height, 97.273, kg, 08/29/20 5:30:00 CDT, Weight pantoprazol 2020-0 Yes 40 mg = 1 M emoria e 40 mg 4-09 tab, PO, l oral 15:27: Daily, # [place] enteric 00 30 tab, 0 coated Refill(s), tablet [facility] 149, 162.56, cm, 08/29/20 5:30:00 CDT, Height, 97.273, kg, 08/29/20 5:30:00 CDT, Weight pantoprazol 1-0 Yes 40 mg = 1 M emoria e 40 mg 4-09 tab, PO, l oral 15:27: Daily, # [place] enteric 00 30 tab, 0 coated Refill(s), tablet [facility] 149, 162.56, cm, 08/29/20 5:30:00 CDT, Height, 97.273, kg, 08/29/20 5:30:00 CDT, Weight pantoprazol 1-0 Yes 40 mg = 1 M emoria e 40 mg 4-09 tab, PO, l oral 15:27: Daily, # [place] enteric 00 30 tab, 0 coated Refill(s), tablet [facility], 162.56, cm, 08/29/20 5:30:00 CDT, Height, 97.273, kg, 08/29/20 5:30:00 CDT, Weight pantoprazol 2020-0 Yes 40 mg = 1 M emoria e 40 mg 4-09 tab, PO, l oral 15:27: Daily, # [place] enteric 00 30 tab, 0 coated Refill(s), tablet [facility], 162.56, cm, 08/29/20 5:30:00 CDT, [...] Skylar nn 00 tab, 0 Refill(s), Pharmacy: [facility] 149, 162.56, cm, 08/29/20 5:30:00 CDT, Height, 97.273, kg, 08/29/20 5:30:00 CDT, Weight pantoprazol 2020-0 No 40 mg = 1 M emoria e 40 mg 4-09 tab, PO, l oral 15:26: Daily, # [place] enteric 00 30 tab, 0 coated Refill(s) tablet sucralfate 2020-0 Yes 1 gm = 1 Mem oria 1 g oral 4-09 tab, PO, l tablet 15:26: Q12H, # 28 Skylar nn 00 tab, 0 Refill(s), Pharmacy: [facility] 149, 162.56, cm, 08/29/20 5:30:00 CDT, Height, 97.273, kg, 08/29/20 5:30:00 CDT, Weight pantoprazol 2020-0 No 40 mg = 1 M emoria e 40 mg 4-09 tab, PO, l oral 15:26: Daily, # [place] enteric 00 30 tab, 0 coated Refill(s) tablet sucralfate 2020-0 Yes 1 gm = 1 Mem oria 1 g oral 4-09 tab, PO, l tablet 15:26: Q12H, # 28 Skylar nn 00 tab, 0 Refill(s), Pharmacy: [facility] 149, 162.56, cm, 08/29/20 5:30:00 CDT, [...] nn 00 tab, 0 Refill(s), Pharmacy: [facility] 149, 162.56, cm, 08/29/20 5:30:00 CDT, [...] nn 00 tab, 0 Refill(s), Pharmacy: [facility] 149, 162.56, cm, 08/29/20 5:30:00 CDT, Height, 97.273, kg, 08/29/20 5:30:00 CDT, Weight pantoprazol No 40 mg = 1 M emoria e 40 mg 4-09 tab, PO, l oral 15:26: Daily, # [place] enteric 00 30 tab, 0 coated Refill(s) tablet sucralfate Yes 1 gm = 1 Mem oria 1 g oral 4-09 tab, PO, l tablet 15:26: Q12H, # 28 Skylar nn 00 tab, 0 Refill(s), Pharmacy: [facility] 149, 162.56, cm, 08/29/20 5:30:00 CDT, Height, 97.273, kg, 08/29/20 5:30:00 CDT, Weight pantoprazol No 40 mg = 1 M emoria e 40 mg 4-09 tab, PO, l oral 15:26: Daily, # [place] enteric 00 30 tab, 0 coated Refill(s) tablet sucralfate Yes 1 gm = 1 Mem oria 1 g oral 4-09 tab, PO, l tablet 15:26: Q12H, # 28 Skylar nn 00 tab, 0 Refill(s), Pharmacy: [facility] 149, 162.56, cm, 08/29/20 5:30:00 CDT, Height, 97.273, kg, 08/29/20 5:30:00 CDT, Weight Saline No Notes: Memoria Flush 0.9% 4-09 (Same as: l 15:25: BD [place] 00 Posiflush) Lorazepam No Notes: Memori a 4-09 (Same as: l 15:25: Ativan) [place] 00 Saline No Notes: Memoria Flush 0.9% 4-09 (Same as: l 15:25: BD Marty 00 Posiflush) Lorazepam No Notes: Memori a 4-09 (Same as: l 15:25: Ativan) Marty 00 Saline No Notes: Memoria Flush 0.9% 4-09 (Same as: l 15:25: BD [place] 00 Posiflush) Saline No Notes: Memoria Flush 0.9% 4-09 (Same as: l 15:25: BD [place] 00 Posiflush) Lorazepam No Notes: Memori a 4-09 (Same as: l 15:25: Ativan) [place] 00 Lorazepam No Notes: Memori a 4-09 (Same as: l 15:25: Ativan) [place] 00 Saline No Notes: Memoria Flush 0.9% 4-09 (Same as: l 15:25: BD [place] 00 Posiflush) Lorazepam No Notes: Memori a 4-09 (Same as: l 15:25: Ativan) [place] 00 Saline No Notes: Memoria Flush 0.9% 4-09 (Same as: l 15:25: BD [place] 00 Posiflush) Lorazepam No Notes: Memori a 4-09 (Same as: l 15:25: Ativan) Saline No Notes: Memoria Flush 0.9% 4-09 (Same as: l 15:25: BD [place] 00 Posiflush) Lorazepam No Notes: Memori a 4-09 (Same as: l 15:25: Ativan) Isuprel HCl No Route: IV, Memoria (ANES) 0.2 4-09 Drug form: l mg + 15:00: INJ, [place] 00 Dosing Weight 97.3, kg, Start date: 08/29/20 10:00:00 CDT, Stop date: 08/29/20 11:00:00 CDT Isuprel HCl No Route: IV, Memoria (ANES) 0.2 4-09 Drug form: l mg + 15:00: INJ, [place] 00 Dosing Weight 97.3, kg, Start date: 08/29/20 10:00:00 CDT, Stop date: 08/29/20 11:00:00 CDT Isuprel HCl 2020-0 No Route: IV, Memoria (ANES) 0.2 08-29 Drug form: l mg + 15:00: INJ, [place] Dosing Weight 97.3, kg, Start date: 08/29/20 [...] Drug form: l mg + 15:00: INJ, [place] 00 Dosing Weight 97.3, kg, Start date: [...] Marty 00 Stop date: 08/29/20 9:49:00 CDT heparin 2021-0 No Route: IV, Caesar lisa (ANES) 08-29 Drug form: l 14:49: INJ, ONCE, Stop date: 08/29/20 9:49:00 CDT heparin 202-0 No Route: IV, Caesar lisa (ANES) 08-29 Drug form: l 14:49: INJ, ONCE, Marty 00 Stop date: 08/29/20 9:49:00 CDT heparin 202-0 [...] 08-29 Drug form: l 14:29: INJ, ONCE, [place] 00 Stop date: 08/29/20 9:29:00 CDT propofol 2021-0 No Route: IV, Mem oria (ANES) 08-29 Drug form: l 14:29: INJ, ONCE, Stop date: 08/29/20 9:29:00 CDT propofol 2021-0 No Route: IV, Mem oria (ANES) 08-29 Drug form: l 14:29: INJ, ONCE, [place] 00 Stop date: 08/29/20 9:29:00 CDT propofol 2021-0 No Route: IV, Mem oria (ANES) 08-29 Drug form: l 14:29: INJ, ONCE, Marty 00 Stop date: 08/29/20 9:29:00 CDT propofol 2021-0 No Route: IV, Mem oria (ANES) 08-29 Drug form: l 14:29: INJ, ONCE, Stop date: 08/29/20 9:29:00 CDT heparin 202-0 No Route: IV, Caesar lisa (ANES) 08-29 Drug form: l 14:18: INJ, ONCE, Marty 00 Stop date: 08/29/20 9:18:00 CDT heparin 202-0 No Route: IV, Caesar lisa (ANES) 08-29 Drug form: l 14:18: INJ, ONCE, [place] 00 Stop date: 08/29/20 9:18:00 CDT heparin 202-0 No Route: IV, Caesar lisa (ANES) 08-29 Drug form: l 14:18: INJ, ONCE, Stop date: 08/29/20 9:18:00 CDT heparin 202-0 No Route: IV, Caesar lisa (ANES) 08-29 Drug form: l 14:18: INJ, ONCE, [place] 00 Stop date: 08/29/20 9:18:00 CDT heparin 2021-0 No Route: IV, Caesar lisa (ANES) 08-29 Drug form: l 14:18: INJ, ONCE, Stop date: 08/29/20 9:18:00 CDT heparin 202-0 No Route: IV, Caesar lisa (ANES) 08-29 Drug form: l 14:18: INJ, ONCE, [place] 00 Stop date: 08/29/20 9:18:00 CDT heparin 202-0 No Route: IV, Caesar lisa (ANES) 08-29 Drug form: l 14:18: INJ, ONCE, Marty 00 Stop date: 08/29/20 9:18:00 CDT Labetalol 2020-0 No 10 mg, Memori a 08-29 Route: l 14:01: IVP, [place] 00 Q5Min, Dosing Weight 97.273, kg, PRN Elevated BP, Start date: 08/29/20 9:01:00 CDT, Duration: 5 doses or times, Stop date: Limited # of times Acetaminoph 1-0 No 1,000 mg, M emoria en 08-29 Route: PO, l 14:01: Drug form: [place] 00 TAB, ONCE, Dosing Weight 97.273, kg, [...] Memori a 08-29 Route: l 14:01: IVP, [place] 00 Q2MIN, Dosing Weight 97.273, kg, PRN [...] lisa 08-29 Route: l 14:01: IVP, PRN, [place] 00 Dosing Weight 97.273, kg, PRN Benzodiaze pine Reversal, Initial dose, Start date: 08/29/20 9:01:00 CDT, Duration: 30 day, Stop date: 09/28/20 9:00:00 CDT Naloxone 1-0 No 0.4 mg, Memori a 08-29 Route: l 14:01: IVP, [place] 00 Q2MIN, Dosing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 Lab Paula, Min 1.2.840.1 [id number] 76746 30396 Methodi 10:13:59 01:05:[address] 3.430.2.7 Hospit a .3.417884 l .8 2020-09-06 2020-09-06 [facility] 1.2.840.1 [id number] 68759 80125 Methodi 17:42:30 23:59:[address] 3.430.2.7 Hospit a .3.329868 l .8 2020-09-06 2020-09-06 [facility], 1.2.840.1 [id number] 2100 226578 Methodi 16:50:00 17:41:00 Encounter Ray 38636.1.[address] 3.430.2.7 Hospit a .3.282038 l .8 2020-09-05 2020-09-05 [facility], 1.2.840.1 [id number] 2099 456720 Methodi 09:17:00 19:45:00 Encounter Ray [address]47.1.[address] 3.430.2.7 Hospit a .3.885969 l .8 2020-09-05 2020-09-05 Surgery [facility], 1.2.840.1 [id number] 37889 93285 Methodi 11:30:00 13:15:[address] 3.430.2.7 Hospit a .3.382916 l .8 2020-09-05 2020-09-05 Anesthesia Remigio, 1.2.840.1 [id number] 211 [id number] Methodi 11:27:00 12:20:00 Event Johnathanthi 78870.1.1 243 s t V. 3.430.2.7 Hospit a .3.084249 l .8 2020-09-05 2020-09-05 Travel 1.2.840.1 1.2.980.876 5804 000217 Methodi 00:00:00 00:00:[address] 3.430.2.7 0.2.7.3.698 Ho spita .3.837201 084.8 l .8 2020-09-04 2020-09-04 Telephone Meisenbach, 1.2.840.1 [id number] Methodi 00:00:00 00:00:00 Sarai CorbinChelsie 82857.1.1 762 s t 3.430.2.7 Hospit a .3.332014 l .8 2020-09-02 2020-09-02 Telephone Meisenbach, 1.2.840.4 [id number] Methodi 00:00:00 00:00:00 Sarai Lieberman 42525.1.1 344 s t 3.430.2.7 Hospit a .3.416179 l .8 2020-09-01 2020-09-01 [facility] 1.2.840.1 [id number] 61896 70900 Methodi 08:42:53 09:50:51 Visit Ray 35579.1.[address] 3.430.2.7 Hospit a .3.774926 l .8 2020-09-01 2020-09-01 Telephone [facility], 1.2.840.1 [id number] 21 [id number] Methodi 00:00:00 00:00:[address] 3.430.2.7 Hospit a .3.506017 l .8 2020-09-01 2020-09-01 Travel 1.2.840.1 1.2.691.334 8345 102521 Methodi 00:00:00 00:00:[address] 3.430.2.7 0.2.7.3.698 Ho spita .3.611207 084.8 l .8 2020-08-29 2020-08-30 Bedded [facility] [id number] 275 [facility] 10:20:00 14:10:00 Outpatient [facility] 00 l [facility] 2020-08-29 2020-08-30 Outpatient [facility] CAR [address] [facility] 05:20:00 09:10:00 BEVERLY 2020-08-27 2020-08-27 [facility], 1.2.840.1 [id number] 2100 510106 Methodi 09:55:15 23:59:00 Encounter Ray [address]34.1.[address] 3.430.2.7 Hospit a .3.157184 l .8 2020-08-27 2020-08-27 Travel 1.2.840.1 1.2.417.406 5817 975401 Methodi 00:00:00 00:00:[address] 3.430.2.7 0.2.7.3.698 Ho spita .3.841338 084.8 l .8 2020-08-21 2020-08-21 Travel 1.2.840.1 1.2.006.086 9581 085516 Methodi 00:00:00 00:00:[address] 3.430.2.7 0.2.7.3.698 Ho spita .3.451754 084.8 l .8 2020-08-19 2020-08-19 Telephone Meli, 1.2.840.1 [id number] 744 [id number] Methodi 00:00:00 00:00:[address] 3.430.2.7 Hospit a .3.181336 l .8 2020-08-19 2020-08-19 Travel 1.2.840.1 1.2.293.166 1645 996279 Methodi 00:00:00 00:00:[address] 3.430.2.7 0.2.7.3.698 Ho spita .3.067830 084.8 l .8 2020-08-18 2020-08-18 Orders Carol Ann, 1.2.840.3 [id number] 2 [id number] Methodi 00:00:00 00:00:00 Only Sarai Lieberman 20385.1.1 410 s t 3.430.2.7 Hospit a .3.844920 l .8 2020-08-18 2020-08-18 Travel 1.2.840.1 1.2.002.502 6265 049046 Methodi 00:00:00 00:00:[address] 3.430.2.7 0.2.7.3.698 Ho spita .3.922399 084.8 l .8 2020-08-15 2020-08-15 Abstract Clark, 1.2.840.1 [id number] 62527 40575 Methodi 00:00:00 00:00:[address] 3.430.2.7 Hospit a .3.464693 l .8 2020-07-02 2020-08-06 Clinical 1.2.840.1 [id number] 68806 Methodi 10:40:46 01:45:[address] 3.430.2.7 Hospit a .3.099029 l .8 2020-07-30 2020-07-30 Travel 1.2.840.1 1.2.253.667 5111 694469 Methodi 00:00:00 00:00:[address] 3.430.2.7 0.2.7.3.698 Ho spita .3.415872 084.8 l .8 2020-07-28 2020-07-28 Office Cade, 1.2.840.1 [id number] 40608 Methodi 08:35:45 10:11:52 Visit Ray 77652.1.[address] 3.430.2.7 Hospit a .3.849123 l .8 2020-07-28 2020-07-28 Telephone Rodas, 1.2.840.1 [id number] 2099 079644 Methodi 00:00:00 00:00:[address] 3.430.2.7 Hospit a .3.505740 l .8 2020-07-28 2020-07-28 Travel 1.2.840.1 1.2.453.027 8887 822276 Methodi 00:00:00 00:00:[address] 3.430.2.7 0.2.7.3.698 Ho spita .3.387478 084.8 l .8 2020-07-25 2020-07-25 Telephone Carol Ann, 1.2.840.6 [id number] Methodi 00:00:00 00:00:00 Sarai CorbinChelsie 70421.1.1 314 s t 3.430.2.7 Hospit a .3.033107 l .8 2020-07-25 2020-07-25 Travel 1.2.840.1 1.2.866.313 2177 500584 Methodi 00:00:00 00:00:[address] 3.430.2.7 0.2.7.3.698 Ho spita .3.478993 084.8 l .8 2020-07-23 2020-07-23 Clinical Tori, 1.2.840.1 [id number] 70867 26971 Methodi 08:39:40 08:44:40 Support Garlandvalentinomagali 85790.1.[address] P. 3.430.2.7 Hospit a .3.813756 l .8 2020-07-23 2020-07-23 Travel 1.2.840.1 1.2.155.360 5134 111810 Methodi 00:00:00 00:00:[address] 3.430.2.7 0.2.7.3.698 Ho spita .3.373644 084.8 l .8 2020-07-11 2020-07-11 Travel 1.2.840.1 1.2.298.898 2051 309662 Methodi 00:00:00 00:00:[address] 3.430.2.7 0.2.7.3.698 Ho spita .3.185637 084.8 l .8 2020-07-02 2020-07-02 Telephone Jererichelle, 1.2.840.3 [id number] 21 [id number] Methodi 00:00:00 00:00:[address] 3.430.2.7 Hospit a .3.164055 l .8 2020-07-02 2020-07-02 Travel 1.2.840.1 1.2.756.504 0352 741394 Methodi 00:00:00 00:00:[address] 3.430.2.7 0.2.7.3.698 Ho spita .3.438003 084.8 l .8 2020-06-23 2020-06-23 Office Yazmin, 1.2.840.1 [id number] 67322 53506 Methodi 09:36:17 11:00:44 Visit Ray 26654.1.[address] 3.430.2.7 Hospit a .3.648027 l .8 2020-06-23 2020-06-23 Telephone Clark, 1.2.840.1 [id number] 2099 410903 Methodi 00:00:00 00:00:[address] 3.430.2.7 Hospit a .3.492753 l .8 2020-06-23 2020-06-23 Travel 1.2.840.1 1.2.892.804 8318 872097 Methodi 00:00:00 00:00:[address] 3.430.2.7 0.2.7.3.698 Ho spita .3.351510 084.8 l .8 2020-06-09 2020-06-09 Telephone Yazmin, 1.2.840.6 [id number] Methodi 00:00:00 00:00:[address] 3.430.2.7 Hospit a .3.854143 l .8 2020-06-06 2020-06-06 Refill Ball, 1.2.840.1 027914304 344263 7828 Methodi 00:00:00 00:00:00 Eh Lemus 55463.1.[address] 3.430.2.7 Hospit a .3.915466 l .8 2020-06-03 2020-06-03 Telephone Yazmin, 1.2.840.7 [id number] Methodi 00:00:00 00:00:[address] 3.430.2.7 Hospit a .3.659762 l .8 2020-06-02 2020-06-02 Telephone [facility], 1.2.840.2 [id number] Methodi 00:00:00 00:00:[address] 3.430.2.7 Hospit a .3.360718 l .8 2020-05-13 2020-05-13 Orders Provider, 1.2.840.1 [id number] 2099 785659 Methodi 00:00:00 00:00:00 Only Historical 14605.1.1 108 s t 3.430.2.7 Hospit a .3.326797 l .8 2020-05-09 2020-05-09 Telephone [facility], 1.2.840.1 [id number] Methodi 00:00:00 00:00:00 Sarai CorbinChelsie 64182.1.1 660 s t 3.430.2.7 Hospit a .3.761624 l .8 2020-05-09 2020-05-09 Telephone [facility], 1.2.840.5 [id number] Methodi 00:00:00 00:00:[address] 3.430.2.7 Hospit a .3.897227 l .8 2020-05-08 2020-05-08 Telephone [facility], 1.2.840.7 [id number] Methodi 00:00:00 00:00:[address] 3.430.2.7 Hospit a .3.433533 l .8 2020-05-07 2020-05-07 Telephone [facility], 1.2.840.1 [id number] Methodi 00:00:00 00:00:[address] 3.430.2.7 Hospit a .3.892126 l .8 2020-05-05 2020-05-05 Telephone [facility], 1.2.840.1 [id number] Methodi 00:00:00 00:00:[address] 3.430.2.7 Hospit a .3.988069 l .8 2020-04-25 2020-05-03 [facility], 1.2.840.1 [id number] 2100 598655 Methodi 17:33:00 13:39:00 Encounter Ray 47634.1.[address] 3.430.2.7 Hospit a .3.077708 l .8 2020-04-28 2020-04-28 Anesthesia ArabellateresitadaliaelverTomas 1.2.840.1 [id number] [id number] Methodi 13:38:00 19:40:00 Event Justine Catalan 91984.1.[address] 3.430.2.7 Hospit a .3.627223 l .8 2020-04-28 2020-04-28 [facility], 1.2.840.1 [id number] 41068 04847 Methodi 13:00:00 17:10:[address] 3.430.2.7 Hospit a .3.010453 l .8 2020-04-25 2020-04-25 [facility], 1.2.840.1 [id number] 2100 288746 Methodi 10:00:00 17:32:00 Encounter Ray [address].1.[address] 3.430.2.7 Hospit a .3.799557 l .8 2020-04-25 2020-04-25 [facility], 1.2.840.1 [id number] 73017 35358 Methodi 11:43:50 13:44:26 Visit Ray 95421.1.[address] 3.430.2.7 Hospit a .3.990297 l .8 2020-04-25 2020-04-25 Travel 1.2.840.1 1.2.100.833 3980 493684 Methodi 00:00:00 00:00:[address] 3.430.2.7 0.2.7.3.698 Ho spita .3.005513 084.8 l .8 2020-04-24 2020-04-24 Prep for Carol Ann, 1.2.840.1 [id number] 2 [id number] Methodi 00:00:00 00:00:00 Surgery Sarai Lieberman 22427.1.1 524 s t 3.430.2.7 Hospit a .3.124289 l .8 2020-04-22 2020-04-22 Telephone Meli, 1.2.840.1 [id number] 826 4081527 Methodi 00:00:00 00:00:[address] 3.430.2.7 Hospit a .3.653341 l .8 2020-04-22 2020-04-22 Travel 1.2.840.1 1.2.449.668 9219 312647 Methodi 00:00:00 00:00:[address] 3.430.2.7 0.2.7.3.698 Ho spita .3.088055 084.8 l .8 2020-04-21 2020-04-21 [facility]1 [id number] 2 [id number] Methodi 06:51:00 10:43:[address] 3.430.2.7 Hospit a .3.166337 l .8 2020-04-21 2020-04-21 Orders Carol Ann, 1.2.840.1 [id number] 21 [id number] Methodi 00:00:00 00:00:00 Only Sarai Lieberman 30391.1.1 550 s t 3.430.2.7 Hospit a .3.164741 l .8 2020-04-16 2020-04-16 Telephone Carol Ann, 1.2.840.1 [id number] Methodi 00:00:00 00:00:00 Sarai Lieberman 31722.1.1 673 s t 3.430.2.7 Hospit a .3.700020 l .8 2020-04-10 2020-04-10 Telephone Yazmin, 1.2.840.0 [id number] 21 [id number] Methodi 00:00:00 00:00:[address] 3.430.2.7 Hospit a .3.778453 l .8 2020-04-07 2020-04-07 Telephone Nahum, 1.2.840.1 [id number] 2099 373230 Methodi 00:00:00 00:00:[address] 3.430.2.7 Hospit a .3.879468 l .8 2020-04-01 2020-04-01 Orders Provider, 1.2.840.1 [id number] 2099 221139 Methodi 00:00:00 00:00:00 Only Historical 23500.1.1 049 s t 3.430.2.7 Hospit a .3.244311 l .8 2020-03-31 2020-03-31 Travel 1.2.840.1 1.2.669.627 3695 729991 Methodi 00:00:00 00:00:[address] 3.430.2.7 0.2.7.3.698 Ho spita .3.368691 084.8 l .8 2020-03-27 2020-03-27 Telephone Paula Min 1.2.840.1 [id number] Methodi 00:00:00 00:00:[address] 3.430.2.7 Hospit a .3.012979 l .8 Results Test Description Test Time Test Comments Results Result Comments Source ACT-ISTAT 2021-06-17 08:47:00 Test Item Value Reference Range Interpretation Comme nts ACT-ISTAT (test code = ACTI) 249 SEC 74-137 H Performed by certified foot miter operator at [facility] - XR CHEST 1 [id number] 00:00:00 [facility] 1955 Sex: F FAX: Lele Olivera DO [phone] [place]: St: ADM FAX: Jean Paul Scales MD [phone] FAX: Bahman Chopra [phone] Name: [facility] : 1955 Age/S: 66/F [address] [place] [address] Unit #: [id number] Loc: [place] [address] Phys: Bahman Chopra [employer] Acct: [id number] Dis Date: Status:ADM IN PHONE #: [phone] Exam Date: 06/17/2021 1320 FAX #: [phone] Reason: WATCHMAN EXAMS: CPT CODE: [id number] XR CHEST 1 V 44953 PROCEDURE INFORMATION: Exam: XR Chest Examdate and time: 06/17/2021 12:09 PM Age: 66 years old Clinical indication: Other: Watchman TECHNIQUE: Imaging protocol: XR of the chest. Views: 1 view. Other technique: AP portable chest obtained, positioning not indicated as supine or otherwise. COMPARISON: DX XR CHEST 2 V 06/16/2021 10:52 AM FINDINGS: Limitations: Portable technique and lordotic positioning. Tubes, catheters and devices: EKG leads overlie the chest. Lungs: Lung volumes are diminished. Hypoventilatory changes with scattered bandlike opacities compatible with subsegmental atelectasis or scarring. There is no consolidation. Technica lly limited assessment of the lateral left base. Nodular opacities over the apices related to anterior 1st ribs and lordotic projection. Pleural spaces: There is no pneumothorax orgross pleural effusion. Heart/Mediastinum: Mild prominence of the cardiac silhouette likely magnified by projection without interval change. Calcified plaque thoracic aorta. Faintly radiopaque atrial appendage occlusion device overlies the left mediastinum. The pulmonary vasculature is indistinct. Bones/joints: Bilateral shoulder prostheses partially imaged. No acute skeletal abnormality. IMPRESSION: 1. Enlarged cardiac silhouette. Mild pulmonary vascular congestion may reflect component of congestive failure/volume loading. 2. Subsegmental atelectasis bilateral. at 1339 Reported and signed by: Lambert Vega M.D. CC: Lele Rahman DO; Mike Lund MD; Bahman Chopra Technologist: RT Taylor(R) Trnscrd Date/Time/By: 06/17/2021 (9909) : By: Susanna Orig Print D/T: S: 06/17/2021 (0090) PAGE 1 Signed ReportCOVID 19 Asymptomatic IH [id number] 12:29:00 Test Item Value Reference Range Interpretation Comments COVID 19 Asymptomatic Negative Negative A neg ative result is IH AG (test code = presumpti ve and should COVNONPUIAG) be confirmedwit h an FDA authorized mole cular assay, if neces lucille forpatient tamara gement.A positive result does not rule out co-inf ections withother patho gens.This test detects nathan th viable (live) and non-viable,SARS -CoV, and SARS-CoV-2. Milton t performance dep ends on theamount of vi ethel (antigen) in th e sample.This milton t has not been FDA cleare d or approved; the t est hasbeen authori zed by FDA under an Em ergency Use Authorizati on(EUA) for use by labo ratories certified under the CLIA thatmeet the requirements to perform moderate, high or waivedcomplexit y tests. BASIC METABOLIC [id number] 11:37:00 Test Item Value Reference Range Interpretation Comments SODIUM (test code = NA) 139 mEq/L 134-147 N POTASSIUM (test code = 3.4 mEq/L 3.4-5.0 N K) CHLORIDE (test code = 107 mEq/L 100-108 N CL) CARBON DIOXIDE (test 26 mEq/l 21-33 N code = CO2) ANION GAP (test code = 9 0-20 N GAP) GLUCOSE (test code = 152 mg/dL 70-110 H GLU) BLOOD UREA NITROGEN 21 mg/dL 7-18 H (test code = BUN) GLOMERULAR FILTRATION 49.8 80-90 L Units of measure = RATE (test code = GFR) ml/mi n/1.73 m2 CREATININE (test code = 1.1 mg/dL 0.6-1.3 N CREAT) CALCIUM (test code = 9.0 mg/dL 8.0-10.5 N CA) [id number] 11:37:00 Test Item Value Reference Range Interpretation Comments PREALBUMIN (test code = PREALB) 24.3 mg/dL 16.0-40.0 N PROTHROMBIN [id number] 11:03:00 Test Item Value Reference Range Interpretation Comments PROTHROMBIN TIME 12.0 SECONDS 9.3-12.9 N PATIENT (test code = PTP) INTERNATIONAL NORMAL 1.1 0.8-1.2 N TARGET RATIO (test code = INR BY IN DICATION INR) Indication INR1. Prophyl axis of venous thrombos is 2.0 - 3. 0 (orthopedic mirlande jeff), Prophylaxis of venous thrombos is (other than hig h-risk surgery), Jeny tment of Deep Vein Thrombosis/Pulm onary Embolism, Preve ntion of systemic emb olism - Tissue heart va lves, Acute Myocardia l Infarction (to prevent systemic embo lism), Valvular heart disease, Atri al Fibrillation, Bileaflet mecha nical valve in aortic position.2. Mec hanical prosthetic valv es (high risk), 2.5 - 3.5 Presence of Lupus Anticoagu lant or Antiphospholi pid Antibodies, Pre vention of systemic e mbolism - Acute Myocard ial Infarction (t o prevent recurre nt infarct). CBC W/AUTO [id number] 10:59:00 Test Item Value Reference Range Interpretation Comments WHITE BLOOD CELL (test code = 9.8 x10 3/uL 4.5-11.0 N WBC) RED BLOOD CELL (test code = 4.60 x10 6/uL 3.54-5.02 N RBC) HEMOGLOBIN (test code = HGB) 11.3 g/dL 11.0-15.0 N HEMATOCRIT (test code = HCT) 38.9 % 33.0-45.0 N MEAN CELL VOLUME (test code = 84.6 fL 81.0-99.0 N MCV) MEAN CELL HGB (test code = MCH) 24.6 pg 27.0-33.0 L MEAN CELL HGB CONCETRATION 29.0 g/dL 33.0-37.0 L (test code = MCHC) RED CELL DISTRIBUTION WIDTH CV 17.2 % 11.5-14.5 H (test code = RDW) PLATELET COUNT (test code = 226 x10 3/uL 150-400 N PLT) NEUTROPHIL % (test code = NT%) 83.7 % 56.0-77.0 H LYMPHOCYTE % (test code = LY%) 10.9 % 14.0-32.0 L NEUTROPHIL # (test code = NT#) 8.19 x10 3/uL 2.0-7.6 H LYMPHOCYTE # (test code = LY#) 1.07 x10 3/uL 1.0-3.8 N MANUAL DIFF REQUIRED (test code NO = MDIFF) RED CELL DISTRIBUTION WIDTH SD 52.8 fL 37.0-54.0 N (test code = RDW-SD) MEAN PLATELET VOLUME (test code 9.8 fL 7.0-9.0 H = MPV) IMMATURE GRANULOCYTE % (test 1.1 % 0.0-2.0 N code = IG%) MONOCYTE % (test code = MO%) 3.6 % 4.8-9.0 L EOSINOPHIL % (test code = EO%) 0.2 % 0.3-3.7 L BASOPHIL % (test code = BA%) 0.5 % 0.0-2.0 N NUCLEATED RBC % (test code = 0.0 % 0-0 N NRBC%) IMMATURE GRANULOCYTE # (test 0.11 x10 3/uL 0.00-0.03 H code = IG#) MONOCYTE # (test code = MO#) 0.35 x10 3/uL 0.1-0.8 N EOSINOPHIL # (test code = EO#) 0.02 x10 3/uL 0.0-0.2 N BASOPHIL # (test code = BA#) 0.05 x10 3/uL 0.0-0.2 N NUCLEATED RBC # (test code = 0.00 x10 3/uL 0.0-0.1 N NRBC#) - XR CHEST 2 [id number] 00:00:00 [facility] 1955 Sex: F FAX: Lele Olivera [phone] [place]: St: PRE FAX: Jean Paul Scales [facility] [phone] Name: LIO WATTS [facility] : 1955 Age/S: 66/F [address] [place] [address] Unit #: [id number] Loc: [place] [address] [facility]: [id number] Dis Date: Status: PRE [facility] PHONE #: [phone] Exam Date: 06/16/2021 1120 FAX #: [phone] Reason: PREOP EXAMS: CPT CODE: [id number] XR CHEST 2 V 80274 PROCEDURE INFORMATION: Exam: XR Chest Exam date and time: 06/16/2021 10:52 AM Age: 66 y ears old Clinical indication: Pre-operative exam; Respiratory screening exam; Additional info: Preop TECHNIQUE: Imaging protocol: XR of the chest. Views: 2 views. PA and Lateral COMPARISON: No relevant prior studies available. FINDINGS: Lungs: No consolidation. Pleural spaces: No pleural effusion. Heart/Mediastinum: Heart is borderline in size.There is atherosclerotic calcification of the aorta. Bilateral shoulder hardware is partially seen. Bones/joints: No gross acute findings. IMPRESSION: No acute cardiopulmonary findings at 1134 Reported and signed by: Selene Collins D.O. CC: Lele Rahman DO; Mike Lund MD Technologist: RT Andree(R) Trnscrd Date/Time/By: 06/16/2021 (1400) : By: [email or web address] Orig Print D/T: S: 06/16/2021 (7826) PAGE 1 Signed ReportGastrointestinal [id number] 04:35:05 Test Item Value Reference Interpretation Comments [...] Rotavirus PCR (test Not Detected code = 2975733) Salmonella PCR (test Not Detected code = [...] PCR Not Detected (test code = 7124) [facility] [id number] 19:17:40EXAMINATION: XR ABDOMEN 1 VW CLINICAL HISTORY: [...] clips are noted.[id number] [id number] 19:41:02EXAMINATION: OR FL < 1 HOUR C-arm fluoroscopy was requested in OR. Location: [facility] OR [facility] Procedure: EGD WITH BOTOX INJECTION INTO THE [...] arm fluoroscopy was requested in OR. Location: [facility] OR room 6 Procedure: EGD WITH BOTOX INJECTION INTO THE PYLORUS, ENDOFLIP, ON TABLE ESOPHAGRAM (N/A ) Start: 1140 End:1222 FluoroTime: .19sec Dose: 7.8mGy Tech: A.BIMPRESSION:Intraoperative fluoroscopic images. Radiologist was not present during the examination.Separate operative report will be issued by the physician performingthe procedure.[id number] HospitalSurgical pathology request 2020-09-08 19:30:47 Test Item Value Reference Range Interpretation Comments Case number (test [id number] code = [id number]) Surgical pathology See link below for PDF report (test code = Lab Report 2255) Result status (test This is Supplemental code = [id number]) Report for [id number] [facility] 1 Vw [id number] 23:06:58EXAMINATION: XR CHEST 1 VW PORTABLE HISTORY: [...] to prior. Bilateral shoulder arthroplasties. [facility]-[id number] Interface, Radiology Results 09/06/2020 6:09PM CDT EXAMINATION: [...] silhouette is enlarged, similar to prior.Bilateral shoulder arthroplasties.[facility]-[id number] [id number] 16:47:23Kirit Flood MD 09/05/2020 11:48 [address]: [...] RSI: Yes Number of Attempts at Approach: 1[facility] 12 [id number] 23:21:56 Test Item Value Reference Range Interpretation [...] anterior ischemia-Abnormal ECG- [facility] qualitative [id number] 22:48:41 Test Item Value Reference Range Interpretation Comments Interpretation (test Negative results do code = 9738192) not preclude 2019-nCoV infection and should not be used as the sole basis for treatment or other patient management decisions. Negative results must be combined with clinical observations, patient history, and epidemiological information. COVID-19 qualitative Not-Detected Not-Detected RT-PCR result (test code = 64611-2) COVID-19 qualitative See link below for C ase Number: RT-PCR (test code = PDF Lab Report [id number]) [facility]AevcvtefPPJXYNHLLG0959-01-93 16:31:00 Test Item Value Reference Range Interpretation Comments POC Activated Clotting Time (test code 153 s = POC Activated Clotting Time) [facility]OrtkgaxLOYRFHWWYX2397-58-23 16:31:00 Test Item Value Reference Range Interpretation Comments POC Activated Clotting Time (test code 153 s = POC Activated Clotting Time) [facility] HospitalKzqjprnYJLCBISSTT5635-71-11 16:31:00 Test Item Value Reference Range Interpretation Comments POC Activated Clotting Time (test code 153 s = POC Activated Clotting Time) [facility] HospitalMrgrwvqGOWJVENPIJ5463-31-32 16:31:00 Test Item Value Reference Range Interpretation Comments POC Activated Clotting Time (test code 153 s = POC Activated Clotting Time) [facility] HospitalRbagoinGYCHDIOLQI3809-73-69 16:31:00 Test Item Value Reference Range Interpretation Comments POC Activated Clotting Time (test code 153 s = POC Activated Clotting Time) [facility] HospitalZuzksywKSOBEEMMQT0914-75-39 16:31:00 Test Item Value Reference Range Interpretation Comments POC Activated Clotting Time (test code 153 s = POC Activated Clotting Time) [facility] HospitalAavynjqVIMFHLIVOA2732-95-63 16:31:00 Test Item Value Reference Range Interpretation Comments POC Activated Clotting Time (test code 153 s = POC Activated Clotting Time) [facility] HospitalFeigkwmIEHGUXIUTW3583-28-60 14:37:00 Test Item Value Reference Range Interpretation Comments POC Activated Clotting Time (test code 454 s = POC Activated Clotting Time) [facility] HospitalOlwnsyyHTHCFVLFRZ4673-51-74 14:37:00 Test Item Value Reference Range Interpretation Comments POC Activated Clotting Time (test code 454 s = POC Activated Clotting Time) [place] [id number] 14:37:00 Test Item Value Reference Range Interpretation Comments POC Activated Clotting Time (test code 454 s = POC Activated Clotting Time) [facility] HospitalChlibiaDINJUOCZJS1465-50-49 14:37:00 Test Item Value Reference Range Interpretation Comments POC Activated Clotting Time (test code 454 s = POC Activated Clotting Time) [facility] HospitalScwaunuVOXQCUWXUE3649-37-47 14:37:00 Test Item Value Reference Range Interpretation Comments POC Activated Clotting Time (test code 454 s = POC Activated Clotting Time) [facility] HospitalEllwndjDILMDVGWOE0940-19-40 14:37:00 Test Item Value Reference Range Interpretation Comments POC Activated Clotting Time (test code 454 s = POC Activated Clotting Time) [facility] HospitalQstpkzmWVRDHXYTKW2811-70-31 14:37:00 Test Item Value Reference Range Interpretation Comments POC Activated Clotting Time (test code 454 s = POC Activated Clotting Time) [facility] HospitalUsafrhhTWKBQHHSIA2470-98-88 14:13:00 Test Item Value Reference Range Interpretation Comments POC Activated Clotting Time (test code 354 s = POC Activated Clotting Time) [facility] HospitalSzxjturAXGFTXRLIF3486-95-61 14:13:00 Test Item Value Reference Range Interpretation Comments POC Activated Clotting Time (test code 354 s = POC Activated Clotting Time) [facility] HospitalNgsbbnoVRPWVQGMCF3234-97-24 14:13:00 Test Item Value Reference Range Interpretation Comments POC Activated Clotting Time (test code 354 s = POC Activated Clotting Time) [facility] HospitalYeflgqjWDUBNMYCAH2667-31-87 14:13:00 Test Item Value Reference Range Interpretation Comments POC Activated Clotting Time (test code 354 s = POC Activated Clotting Time) [facility] HospitalTvdtaxsMORPBWQFGN3400-43-40 14:13:00 Test Item Value Reference Range Interpretation Comments POC Activated Clotting Time (test code 354 s = POC Activated Clotting Time) [facility] HospitalGyuwawxFERIFNHNYD8021-84-61 14:13:00 Test Item Value Reference Range Interpretation Comments POC Activated Clotting Time (test code 354 s = POC Activated Clotting Time) [facility] HospitalHgxexefEGDXUQFKLT5282-64-93 14:13:00 Test Item Value Reference Range Interpretation Comments POC Activated Clotting Time (test code 354 s = POC Activated Clotting Time) [facility] RZSXEFZ3970-02-14 10:37:00Negative (08/29/20 5:37 AM) [facility] KTIGY4087-76-37 10:37:40206Zcqvoexp HermannCHEM PANEL 2020-08-29 10:37:0028[facility] HermannCHEM PZVHQ2436-93-49 10:37:001.01[facility] HermannCHEM UOLOV2275-15-71 10:37:00276Pjfepiwf HermannCHEM VSDTO2381-68-49 10:37:003.8[facility] HermannCHEM TMMPV7325-17-62 10:37:05088Esrihqan HermannCHEM WJTGS5979-96-64 10:37:0028[facility] HermannCHEM KPZHU5748-17-39 10:37:009.8 [facility] HermannCHEM ZTLPV8780-78-06 10:37:0011.8[facility] HermannCHEM PANEL 2020-08-29 10:37:0059[facility] HermannCHEM STIGP1141-55-72 10:37:002.9[facility] PtuxwzaMDAXUGHYFC7337-91-34 10:37:006.8[facility] JopretwSGCFMCZINU1511-16-94 10:37:004.47[facility] TsretfgDQNZCEMZJU3490-55-19 10:37:0010.6[facility] GEATZOIJBT1863-72-91 10:37:0034.0[facility] KtrqlfdCGKUYDNNBK1016-85-75 10:37:00 76.1[facility] AbxdjboODJIRHDTEK1413-28-85 10:37:00 Test Item Value Reference Range Interpretation Comments MCH (test code = MCH) 23.8 pg 27.0-31.0 [facility] TymwetfJQKVGZSMNI8009-33-63 10:37:0031.3[facility] HermannHEMATOLOGY 2020-08-29 10:37:0018.2[facility] YyjybtqLPNWPEJGEX0400-49-97 10:37:23989Zgizopyo EznsdxnLQBTSLITWT5221-71-29 10:37:007.5[facility] MjoqevpRVOYCTBKJH0556-45-62 10:37:00 Test Item Value Reference Range Interpretation Comments PT (test code = PT) 12.8 s 12.0-14.7 [facility] MrhcfmdLNSUGTVJJB4264-99-89 10:37:00 Test Item Value Reference Range Interpretation Comments INR (test code = INR) 0.97 1 0.85-1.17 [facility] EosuobcQANGUFMRXF8095-00-49 10:37:00 Test Item Value Reference Range Interpretation Comments PTT (test code = PTT) 25.0 s 22.9-35.8 [facility] VerhibrBOBFCBTWTI4238-81-40 10:37:0070.5[facility] HermannHEMATOLOGY 2020-08-29 10:37:0018.8[facility] BuagaomOCQQKPGRQL8759-83-44 10:37:009.5[facility] NqbefliUKQLYUECGE4142-17-46 10:37:000.9[facility] PefbcneNFJPGYIOWV4524-20-01 10:37:000.3[facility] CccawiyEQGMUVLSSU4057-32-22 10:37:004.8[facility] BHDACLSWIA4238-09-14 10:37:001.3[facility] ItemubwTRHWJZBLQU3121-93-97 10:37:000.6 [facility] PhamqekXYMORPCZCN2645-90-32 10:37:000.1[facility] HermannHEMATOLOGY 2020-08-29 10:37:001+ *ABN*(08/29/20 5:37 AM)[facility] MuhlzwrTGHUWLXLRO6843-28-28 10:37:00Not Detected (08/29/20 5:37 AM)[facility]annBLOOD BANK RESULTS 2020-08-29 10:37:00Negative (08/29/20 5:37 AM)[facility] HermannCHEM DSKYV8613-81-32 10:37:00942Dwbupjwi HermannCHEM WGJMW5736-95-12 10:37:0028[facility] HermannCHEM JLLXI0811-63-77 10:37:001.01[facility] HermannCHEM MGNBD6092-29-80 10:37:65856 [facility] HermannCHEM FPHTJ9746-60-32 10:37:003.8[facility] HermannCHEM PANEL 2020-08-29 10:37:09202Grwowxmm HermannCHEM MFAMK9861-54-98 10:37:0028[facility] HermannCHEM BASNP8164-09-85 10:37:009.8[facility] HermannCHEM SXVSX7149-97-26 10:37:0011.8[facility] HermannCHEM KUQBU0737-83-44 10:37:0059[facility] HermannCHEM VIBFK8033-88-18 10:37:002.9[facility] WptiilvAUHFHNNWHH1941-73-45 10:37:006.8 [facility] QrltggaQQRLRYUURZ7505-10-98 10:37:004.47[facility] HermannHEMATOLOGY 2020-08-29 10:37:0010.6[facility] TysyinjGJCWYTYYLO9296-20-19 10:37:0034.0[facility] OktnmxiTUKDOFDFDJ1769-21-92 10:37:0076.1[facility] MbxlxyfQAMCDUKYYY9264-64-66 10:37:00 Test Item Value Reference Range Interpretation Comments MCH (test code = MCH) 23.8 pg 27.0-31.0 [facility] GeszrwlNBDKPSRMXT5349-63-32 10:37:0031.3[facility] HermannHEMATOLOGY 2020-08-29 10:37:0018.2[facility] JkxixhiFLNCLYAPTI7717-69-12 10:37:54931Xcrwjwiw ZnzuzejYAQPQNQVKS7119-67-16 10:37:007.5[facility] EbduizrKIULLJZIPK9226-52-64 10:37:00 Test Item Value Reference Range Interpretation Comments PT (test code = PT) 12.8 s 12.0-14.7 [facility] AjzfoanVLIQUNUSKS8788-14-87 10:37:00 Test Item Value Reference Range Interpretation Comments INR (test code = INR) 0.97 1 0.85-1.17 [facility] TgzaxovUBDPFQFRWU7880-97-29 10:37:00 Test Item Value Reference Range Interpretation Comments PTT (test code = PTT) 25.0 s 22.9-35.8 [facility] SodxlgiQTMZXWTOWS3820-93-05 10:37:0070.5[facility] HermannHEMATOLOGY 2020-08-29 10:37:0018.8[facility] RqmxcbwEMHJDEIZKA9640-24-91 10:37:009.5[facility] StyhjepOIHNFGPMSN4760-06-12 10:37:000.9[facility] KsxhdakRXIQWRSKPE1391-19-17 10:37:000.3[facility] ChwdaueXJKFVWUIKC5317-80-59 10:37:004.8[facility] BPKBYAVZKN6655-84-97 10:37:001.3[facility] LgchdsrTGVVQUTRED7369-30-94 10:37:000.6 [facility] WgzxojvOXQNZTIVJE6494-79-29 10:37:000.1[facility] HermannHEMATOLOGY 2020-08-29 10:37:001+ *ABN*(08/29/20 5:37 AM)[facility] TwcfrskQOOOTRDFUJ6433-92-11 10:37:00Not Detected (08/29/20 5:37 AM)[facility]annBLOOD BANK RESULTS 2020-08-29 10:37:00Negative (08/29/20 5:37 AM)[facility] HermannCHEM PNBJY3574-47-22 10:37:13831Igouwzqr HermannCHEM AIXCD6053-13-04 10:37:0028[facility] HermannCHEM IRRQZ9296-27-29 10:37:001.01[facility] HermannCHEM NGNQO4725-32-81 10:37:55887 [facility] HermannCHEM CUPAH8462-37-89 10:37:003.8[facility] HermannCHEM PANEL 2020-08-29 10:37:19762Feimwaxr HermannCHEM MEQFY2568-59-15 10:37:0028[facility] HermannCHEM OFSLI2189-92-11 10:37:009.8[facility] HermannCHEM QCKNU5826-15-12 10:37:0011.8[facility] HermannCHEM RROCN9006-49-62 10:37:0059[facility] HermannCHEM VLKVE9283-88-23 10:37:002.9[facility] EgxqujmOTJYDJWAYK3890-23-16 10:37:006.8 [facility] UmxqbgmSGKNGZOYHO7650-97-68 10:37:004.47[facility] HermannHEMATOLOGY 2020-08-29 10:37:0010.6[facility] PcfvhjhRMUUDBGCLJ6136-63-18 10:37:0034.0[facility] MwbkfewNNTZNWLXOU2968-87-71 10:37:0076.1[facility] MmejwloKPBAHAUDWW4125-21-79 10:37:00 Test Item Value Reference Range Interpretation Comments MCH (test code = MCH) 23.8 pg 27.0-31.0 [facility] KdteolzQGCFMDWYDW2953-55-73 10:37:0031.3[facility] HermannHEMATOLOGY 2020-08-29 10:37:0018.2[facility] WdesmmhAOLUNVHTLX7058-36-92 10:37:30573Oqbyseaj XczlejoZSWDYVXUSY1068-81-48 10:37:007.5[facility] QjjyjqbZTUHJUMAIT3737-17-15 10:37:00 Test Item Value Reference Range Interpretation Comments PT (test code = PT) 12.8 s 12.0-14.7 [facility] YolvjqmPOKVPAWQQT2180-98-09 10:37:00 Test Item Value Reference Range Interpretation Comments INR (test code = INR) 0.97 1 0.85-1.17 [facility] OzuxngbOAJXRKNFQX4420-95-63 10:37:00 Test Item Value Reference Range Interpretation Comments PTT (test code = PTT) 25.0 s 22.9-35.8 [facility] TidrqnaGDMNXWFYJB3582-41-20 10:37:0070.5[facility] HermannHEMATOLOGY 2020-08-29 10:37:0018.8[facility] HccfsmxOJHJEZZHEI7312-91-36 10:37:009.5[facility] DzkhufiOHJBZYGQDI2201-88-69 10:37:000.9[facility] OavonqgBYHZIYJIWY8665-63-62 10:37:000.3[facility] WqahtoiVWOEOBPBNU1783-93-89 10:37:004.8[facility] ZGPQWKVPOA0432-75-95 10:37:001.3[facility] UwygmoyDQVLMTAPGE4424-66-82 10:37:000.6 [facility] XeaxwzfDTXTAAWEZT2687-83-98 10:37:000.1[facility] HermannHEMATOLOGY 2020-08-29 10:37:001+ *ABN*(08/29/20 5:37 AM)[facility] GagakmtWQECISCFAQ6101-11-30 10:37:00Not Detected (08/29/20 5:37 AM)[facility] HermannBLOOD BANK RESULTS 2020-08-29 10:37:00Negative (08/29/20 5:37 AM)[facility] HermannCHEM WZRXX1123-22-02 10:37:19674Nelbsdhc HermannCHEM HTZEE8910-36-76 10:37:0028[facility] HermannCHEM SEBUD2307-65-56 10:37:001.01[facility] HermannCHEM DZJEG7620-96-59 10:37:19636 [facility] HermannCHEM QYNFX4632-45-02 10:37:003.8[facility] HermannCHEM PANEL 2020-08-29 10:37:27843Ovxjkbru HermannCHEM GCYNF3946-98-11 10:37:0028[facility] HermannCHEM DBRMH8852-75-11 10:37:009.8[facility] HermannCHEM WFDYA1508-05-30 10:37:0011.8[facility] HermannCHEM JYPCC7422-37-43 10:37:0059[facility] HermannCHEM HDUYN9036-26-21 10:37:002.9[facility] NmexmbbHIWFCNVCEJ6193-72-74 10:37:006.8 [facility] XwgcmoiQJUQRCWSZN2403-48-60 10:37:004.47[facility] HermannHEMATOLOGY 2020-08-29 10:37:0010.6[facility] AweruubKJOYSMJYPI6421-48-00 10:37:0034.0[facility] AdlgjpwHMQLVFKYXA7305-56-90 10:37:0076.1[facility] XyprdgjCZLOQHXXBQ7136-37-54 10:37:00 Test Item Value Reference Range Interpretation Comments MCH (test code = MCH) 23.8 pg 27.0-31.0 [facility] XkqricgANHQPIMDIF9309-04-58 10:37:0031.3[facility] HermannHEMATOLOGY 2020-08-29 10:37:0018.2[facility] FkidcboTPGHFFORAW3832-37-79 10:37:85043Vbyakhay ZiedeblLEBXFYNUCE0020-99-47 10:37:007.5[facility] FjtmghuGKUSPJJDRD6854-88-79 10:37:00 Test Item Value Reference Range Interpretation Comments PT (test code = PT) 12.8 s 12.0-14.7 [facility] BogfcvhCPKRSYQYII1588-80-90 10:37:00 Test Item Value Reference Range Interpretation Comments INR (test code = INR) 0.97 1 0.85-1.17 [facility] EzydsceEPFMERLBED0012-41-86 10:37:00 Test Item Value Reference Range Interpretation Comments PTT (test code = PTT) 25.0 s 22.9-35.8 [facility] TirpcpwTQBLWBPBOP3564-17-10 10:37:0070.5[facility] HermannHEMATOLOGY 2020-08-29 10:37:0018.8[facility] QvlirkeBXMYDARKCA7334-99-18 10:37:009.5[facility] LwdeiudWDBNTQVWMZ9241-72-91 10:37:000.9[facility] IfzdopgJJAPKTUSZY4333-35-44 10:37:000.3[facility] BhkayxkPZNHUHGAOI7644-98-31 10:37:004.8[facility] OXBQSRDALF3572-86-71 10:37:001.3[facility] CpjdlwrEWCYBBPNXX0070-08-29 10:37:000.6 [facility] KqhirgrORPGTGFNXG6186-57-16 10:37:000.1[facility] HermannHEMATOLOGY 2020-08-29 10:37:001+ *ABN*(08/29/20 5:37 AM)[facility] ZhdcajhRJVUGZAOJO8019-30-20 10:37:00Not Detected (08/29/20 5:37 AM)[facility] HermannBLOOD BANK RESULTS 2020-08-29 10:37:00Negative (08/29/20 5:37 AM)[facility] HermannCHEM MMHMV0163-69-89 10:37:42866Lbkgloja HermannCHEM NCHYA8034-19-76 10:37:0028[facility] HermannCHEM HFHKQ7661-11-52 10:37:001.01[facility] HermannCHEM GEVHD0995-65-03 10:37:77436 [facility] HermannCHEM GMQFE1949-53-66 10:37:003.8[facility] HermannCHEM PANEL 2020-08-29 10:37:92086Wbubigdv HermannCHEM MXKAU6438-82-16 10:37:0028[facility] HermannCHEM OSFBE2159-57-57 10:37:009.8[facility] HermannCHEM PJWUR7605-77-72 10:37:0011.8[facility] HermannCHEM ITDAJ5557-63-26 10:37:0059[facility] HermannCHEM MPAVH3355-43-84 10:37:002.9[facility] DwxcaxeFYPAVXLXPK3645-78-17 10:37:006.8 [facility] TgynvywCNOWEGGGVZ6117-94-58 10:37:004.47[facility] HermannHEMATOLOGY 2020-08-29 10:37:0010.6[facility] GlinnswTZJNJIJEOR9605-90-18 10:37:0034.0[facility] StyhspmFWAMEXSAJE6530-68-46 10:37:0076.1[facility] UlmcxptGEDAYZLEDF8294-01-19 10:37:00 Test Item Value Reference Range Interpretation Comments MCH (test code = MCH) 23.8 pg 27.0-31.0 [facility] VhiizreDFAZYCMOJW3610-28-87 10:37:0031.3[facility] HermannHEMATOLOGY 2020-08-29 10:37:0018.2[facility] CwtlyovPZBECFGBCR3690-12-74 10:37:97431Yrlexkzv SpsbamaKKIBNGAAZH0262-67-84 10:37:007.5[facility] VbfnrtiSPSIUUQCEL2702-17-54 10:37:00 Test Item Value Reference Range Interpretation Comments PT (test code = PT) 12.8 s 12.0-14.7 [facility] ZouilxjTPCNRSNJWL9933-83-34 10:37:00 Test Item Value Reference Range Interpretation Comments INR (test code = INR) 0.97 1 0.85-1.17 [facility] CnurjpjKGEEFJBGKY3390-21-07 10:37:00 Test Item Value Reference Range Interpretation Comments PTT (test code = PTT) 25.0 s 22.9-35.8 [facility] MxwodaaRDXAKCCGPW3872-16-37 10:37:0070.5[facility] HermannHEMATOLOGY 2020-08-29 10:37:0018.8[facility] MryqiggFYSBEHTSUW8793-03-36 10:37:009.5[facility] TnrbdfmJKTEJKFODH5671-73-49 10:37:000.9[facility] UdnxemqTSRIEONEQZ6164-26-60 10:37:000.3[facility] QotrxvoZOBEAAHDLW4593-83-63 10:37:004.8[facility] CWNSPDBHKJ8080-20-11 10:37:001.3[facility] NwhmzzfSTTSPABRQO1764-85-25 10:37:000.6 [facility] OtfalmqDCXOOOLTTQ6440-31-07 10:37:000.1[facility] HermannHEMATOLOGY 2020-08-29 10:37:001+ *ABN*(08/29/20 5:37 AM)[facility] GyihyrsVQGEPYYTDI4230-13-86 10:37:00Not Detected (08/29/20 5:37 AM)[facility] HermannBLOOD BANK RESULTS 2020-08-29 10:37:00Negative (08/29/20 5:37 AM)[facility] HermannCHEM CWVZQ6423-35-68 10:37:40706Enctehek HermannCHEM BYHJL6210-19-02 10:37:0028[facility] HermannCHEM EEDSV4805-93-70 10:37:001.01[facility] HermannCHEM YABPF9773-67-01 10:37:95040 [facility] HermannCHEM KIPYB0212-07-29 10:37:003.8[facility] HermannCHEM PANEL 2020-08-29 10:37:27568[place] HermannCHEM GVLGL2087-24-41 10:37:0028[facility] HermannCHEM HNRMD5385-29-66 10:37:009.8[facility] HermannCHEM AXYPR1996-28-64 10:37:0011.8[facility] HermannCHEM IKWOI1091-29-95 10:37:0059[facility] HermannCHEM RMPLB7818-21-15 10:37:002.9[facility] PtpcgwoTHPLLSHLXB6678-69-98 10:37:006.8 [facility] QkestfeMUPWCVBCES3615-80-07 10:37:004.47[facility] HermannHEMATOLOGY 2020-08-29 10:37:0010.6[facility] NacvcqrXONYFKNUEE6777-26-50 10:37:0034.0[facility] SzzbuptDOBYSGHMRB6359-57-12 10:37:0076.1[facility] WkxvoisAMOILMYVSW0754-92-51 10:37:00 Test Item Value Reference Range Interpretation Comments MCH (test code = MCH) 23.8 pg 27.0-31.0 [facility] WnuyrsmQOVZTOCIEA0353-26-02 10:37:0031.3[facility] HermannHEMATOLOGY 2020-08-29 10:37:0018.2[facility] CzrsmkfYFXFZXKIHR5551-98-50 10:37:50151[place] VcweehmKVWAEPRHPE4442-97-28 10:37:007.5[facility] KjghdctVLBVDGVOOR4563-75-64 10:37:00 Test Item Value Reference Range Interpretation Comments PT (test code = PT) 12.8 s 12.0-14.7 [facility] KlgckhiVMLLGYVJJO2188-23-26 10:37:00 Test Item Value Reference Range Interpretation Comments INR (test code = INR) 0.97 1 0.85-1.17 [facility] OkdfpteCYHCAREFUS2337-66-55 10:37:00 Test Item Value Reference Range Interpretation Comments PTT (test code = PTT) 25.0 s 22.9-35.8 [facility] NrledjjQODDHDWBLR8946-81-17 10:37:0070.5[facility] HermannHEMATOLOGY 2020-08-29 10:37:0018.8[facility] BxmzxzuQYUDROEBQN0611-90-59 10:37:009.5[facility] JlovsxmEXJNNPJCEM2966-25-03 10:37:000.9[facility] RtmhwunXALVLQPSDL6450-18-54 10:37:000.3[facility] EqdjkyrMCXOAVXKYH9705-71-92 10:37:004.8[facility] XYNVOZXSVS6331-90-34 10:37:001.3[facility] ThozltaRWMXOAMPHK2982-63-55 10:37:000.6 [facility] MlzkdxlDUPPCLSEIO1418-25-85 10:37:000.1[facility] HermannHEMATOLOGY 2020-08-29 10:37:001+ *ABN*(08/29/20 5:37 AM)[facility] FlgsotuPGWPWGJBPV0451-95-46 10:37:00Not Detected (08/29/20 5:37 AM)[facility]annBLOOD BANK RESULTS 2020-08-29 10:37:00Negative (08/29/20 5:37 AM)[facility] HermannCHEM WOOCX0543-40-17 10:37:08238[place]a HermannCHEM KDWNC9281-33-89 10:37:0028[facility] HermannCHEM AZXWU7458-90-01 10:37:001.01[facility] HermannCHEM UJDBH5237-04-50 10:37:24640 [facility] HermannCHEM RZLGG3714-49-43 10:37:003.8[facility] HermannCHEM PANEL 2020-08-29 10:37:56102Simtljtm HermannCHEM TUKAR6008-28-25 10:37:0028[facility] HermannCHEM DQDVQ0130-53-15 10:37:009.8[facility] HermannCHEM QZORF8532-05-21 10:37:0011.8[facility] HermannCHEM HLRUM7574-31-70 10:37:0059[facility] HermannCHEM IFTDI6495-72-52 10:37:002.9[facility] BpbkrilQYOLVCYTEX4721-55-82 10:37:006.8 [facility] NgahcdbQMQTDWQLHA5718-38-25 10:37:004.47[facility] HermannHEMATOLOGY 2020-08-29 10:37:0010.6[facility] UbvhmqeNENWATELPR1119-88-88 10:37:0034.0[facility] PgjodmkVWKQNUDGRM1569-54-72 10:37:0076.1[facility] MnjldieLHLWKQZPBG5932-64-70 10:37:00 Test Item Value Reference Range Interpretation Comments MCH (test code = MCH) 23.8 pg 27.0-31.0 [facility] UyoysmrGQCRTGQGUD3625-00-95 10:37:0031.3[facility] HermannHEMATOLOGY 2020-08-29 10:37:0018.2[facility] RkromlaMWBNJGAAUU3172-89-36 10:37:02520Ljjebnym FvyqfntZAZVECHJAJ0983-24-14 10:37:007.5[facility] WzocnpvEOAQYGUKOR7112-21-32 10:37:00 Test Item Value Reference Range Interpretation Comments PT (test code = PT) 12.8 s 12.0-14.7 [facility] IwnviwkZUZADZNCAC6154-90-30 10:37:00 Test Item Value Reference Range Interpretation Comments INR (test code = INR) 0.97 1 0.85-1.17 [facility] LhseqckHSBHKBKOFV7536-93-23 10:37:00 Test Item Value Reference Range Interpretation Comments PTT (test code = PTT) 25.0 s 22.9-35.8 [facility] YxiusrdJRLBVGRBWC0130-87-19 10:37:0070.5[facility] HermannHEMATOLOGY 2020-08-29 10:37:0018.8[facility] FuwzjdvKWQTKZWYVH4223-46-66 10:37:009.5[facility] XpxoldbKZDBJBSVHC3702-43-50 10:37:000.9[facility] TwjajpbJTMKUTEMXT2648-45-56 10:37:000.3[facility] VonohsqYQCOMOJCRA6325-32-83 10:37:004.8[facility] WQRGOBAADQ0214-62-83 10:37:001.3[facility] TdcynkqJSALRDMTIM9793-21-55 10:37:000.6 [facility] BkniytqAQNKJFCRWE4618-44-63 10:37:000.1[facility] 2020-08-29 10:37:001+ *ABN*(08/29/20 5:37 AM)[facility] EhhbhpgIOGICTSTDF5022-13-01 10:37:00Not Detected (08/29/20 5:37 AM)[facility] 2020-08-27 23:14:39PROCEDURE: NM GASTRIC [...] rate, with complete emptying by 4 hours. [facility]-[id number] Interface, Radiology Results 08/27/2020 6:17 PM CDT [...] rate, with complete emptying by 4 hours. [facility]-[id number] [facility] test 2020-05-09 21:24:58 Test Item Value Reference Range Interpretation Comments Misc test HIV-1 RNA QUAL PCR name (test code = 2566) Misc test see note Human Immunodef iciency result (test Virus 1 (HIV-1) by code = 1730) Qualitative [employer] D[employer] Teacher-M ediated Amplification ( TMA) AR test code 0466889 HIV-1 by Qualit ative TMA See Note SOURCE/SPECIMEN PLASMA HIV-1 RNA, QUAL ITATIVE TMA HIV-1 RNA, QL TMA T FACILITY PRACTICE SPECIALIST Test Not Performed. Initial testing necessi tated a repeat, but the re was insufficient sa mple to perform repeat. SAMPLE LEFT FOR REPEAT IS 50 uL. NEED 1000 u L TO RUN REPEAT. This te st was performed using the APTIMA(R) HIV-R NA Qualitative Ass ay (Gen-Probe). ======== ======== Te st performed by:[employer] [place] [id number] KYLE (test HIVQL - HIV-1 RNA, code = KYLE) Qualitative TMA (FROZEN)ARUP Test Code: 0495864Pavtyb: plasma [facility] upper nwprdbiht9691-80-10 04:57:00 Vascular Ultrasound Laboratory Upper Extremity Venous Report [address] [place] [address] Pat.Name: LIO WATTS Pat.ID: [id number] St.Date: 04/30/2020 Refer.MD: ELISEO ARCE MD Exam Time: 5:04:00 PM Study Type:UE Venous Age: 9 1955,65Y Sex: FEMALE Sonogrphr: IBIS Espinosa, SANKET Pat. Stat.:Inpatient Room: [place] [address] 2020 Tape Vol: EDGAR, CPT - 4: 99213 Echo Event ID:[id number] Order ID: [id number] Reason for Study:Arm swelling or pain, DVT [...] veins.*Preliminary result reported to ASHLEY Santos @ 0443 on 04/30/20.PHYSICIAN INTERPRETATION Venous examination of the both upper extremities and neck demonstratedno evidence of deep venous thrombosis. Total superficial vein thrombosis of the right basilic vein. FINDINGS: Signed 04/30/2020 10:57 PMFrancis Cabral MD, RPVIIntvirginia m[facility], Radiology Results In - 04/30/2020 10:58 PM CST Vascular Ultrasound Laboratory Upper Extremity Venous Report [address] [place] [address] Pat.Name: LIO WATTS Pat.ID: [id number] .Date: 04/30/2020 Refer.MD: ELISEO ARCE MD Exam Time: 5:04:00 PM Study Type:UE Venous Age: 9 1955,65Y Sex: FEMALE Sonogrphr: IBIS Espinosa, SANKET Pat. Stat.:Inpatient Room: [place] [address] 2020 Tape Vol: JM, CPT - 4: 37860 Echo Event ID:[id number] Order ID: [id number] Reason for Study:Arm swelling or pain, DVT [...] veins.*Preliminary result reported to ASHLEY Santos @ 6586 on 04/30/20.PHYSICIAN INTERPRETATION Venous examination of the both upper extremities and neck demonstratedno evidence of deep venous thrombosis. Total superficial vein thrombosis of the right basilic vein. FINDINGS: ------Signed 04/30/2020 10:57 Rajni Cabral MD, [facility] 2 [id number] 22:21:01EXAMINATION: XR CHEST 2 VW CLINICAL HISTORY: [...] active disease of the chest.[id number] Unsuccessful Gazxxjl9648-88-70 17:14:34ANicole zhang RN 04/30/2020 11:25 AMMidline Unsuccessful [...] in lower arm .[facility] 1 Vw Snkucbnw0012-91-03 16:20:14EXAMINATION: XR ABDOMEN 1 VW PORTABLE CLINICAL HISTORY: Abdominal pain post op COMPARISON: No prior IMPRESSION:1.Residual barium within the colon throughout. No small bowel obstruction noted. [facility]2U [id number] Interface, Radiology Results Incoming - 04/30/2020 10:23 AM CST EXAMINATION: XR ABDOMEN 1 VW PORTABLECLINICAL HISTORY: Abdominalpain post opCOMPARISON: No priorIMPRESSION:1.Residual barium within the colon throughout. No smallbowel obstruction noted.[facility]-[id number] 20:57:57Carlee Malloy MD 04/28/2020 2:59 PMAirwayPerformed by: Carlee Malloy MDAuthorized by: Carlee Malloy MD Location: ORUrgency: ElectiveDifficult Airway: No Anesthesiologist: Kvng Malloy MDResident/DIESEL LOCOMOTIVE ENGINEER/AA: Allan Morocho DOPerformed by: resident/DIESEL LOCOMOTIVE ENGINEER/AAPreoxygenated gtpz385% O2: Yes C- spine Precautions Maintained Throughout: [...] at Approach: 1 [facility]Tr[facility]ch[facility] Complete, (w Contrast, Strain and 3D if needed)2020-04-28 00:20:00 Echocardiography Report [address] [place] [address] Pat.Name: LIO WATTS.ID: [id number] St.Date: 04/27/2020 Refer.MD: ELISEO ARCE MD Exam Time: 2:21:00 PM Study Type:Routine Echo Height: 64in Weight: 213lb BSA: 2.01 m2 Age: 9 1955,65Y Sex: FEMALE BP: 128/89 HR: 102 bpm Sonogrphr: SANKET Perkins Pat. Stat.:Inpatient Room: [facility] Study Status:Final Echo Event ID:[id number] Order ID: [id number] Reason for Study:Atrial FibrillationHistory / Clinical:Hypertension Procedures: [...] estimate PA systolic pressure. MEASUREMENTS: 2DParasternal Long [place] Ao An 2.2 cm LVPWd 1 cm [...] 04/27/2020 6:21 PM CST Echocardiography Report [address] [place] [address] Pat.Name: LIO WATTS Pat.ID: [id number] .Date: 04/27/2020 Refer.MD: ELISEO ARCE MD Exam Time: 2:21:00 PM Study Type:Routine Echo Height: 64in Weight: 213lb BSA: 2.01 m2 Age: 9 1955,65Y Sex: FEMALE BP: 128/89 HR: 102 bpm Sonogrphr: SANKET Perkins Pat. Stat.:Inpatient Room: [facility] Study Status:Final Echo Event ID:[id number] Order ID: [id number] Reason for Study:Atrial FibrillationHistory / Clinical:Hypertension Procedures: [...] PA systolic pressure.- MEASUREMENTS: ---- 2DParasternal Long [place] Ao An 2.2 cm LVPWd 1 cm [...] 3.1 l/m/m2 Signed 04/27/2020 06:20 PMMohammed Mario, [facility] Esophagram Double [id number] 18:07:12EXAMINATION: FL ESOPHAGRAM DOUBLE CONTRAST CLINICAL HISTORY: [...] spontaneous gastroesophageal reflux. [id number] Interface, Radiology Results [facility] - 04/25/2020 12:10 PM CST EXAMINATION: [...] hiatal hernia. There was mild spontaneous gastroesophageal reflux.[id number] Abdomen Wo Contrast Pelvis Wo [id number] 15:23:55EXAMINATION: CT CHEST WO CONTRAST ABDOMEN WO [...] chronic and incidental findings as detailed above. [facility]-[id number] Dictated and approved by radiology resi dent/fellow: Jenna Valenzuela M.D. I, Medhat Flowers Jr., M.D., personally reviewed the images and resident's/fellow's findings and agree with the final report.[facility], Radiology Results Incoming - 04/21/2020 9:27 [...] aorta.4.Additional chronic and incidental findings as detailed above.[facility]-[id number] and approved by resident services director/fellow: Jenna Valenzuela M.D.I, Medhat Flowers Jr., M.D., personally reviewed the images and resident's/fellow's findings and agree with the final report. [facility], GC, TV,PCR, IN [id number] 15:38:00 Test Item Value Reference Range Interpretation Comments FT (test code = CHTR) Not detected (qualifier Not Detected N value) FT (test code = Not detected (qualifier Not Detected N NGONO) value) FT (test code = TRVG) Not detected (qualifier Not Detected N value) URINALYSIS WITH [id number] 10:57:00 Test Item Value Reference Range Interpretation Comments Color (test code = UCOLR) Dk. Yellow Clarity (test code = UCLAR) Hazy Glucose (test code = UGLUC) NEGATIVE NEGATIVE N Bilirubin (test code = UBILI) NEGATIVE NEGATIVE N Ketones (test code = UKET) NEGATIVE NEGATIVE N Specific [place] (test code = 1.025 1.005-1.030 A USPGR) [...]
[2021-06-25 13:18] LABS: Absolute Lymphocytes (CBC) 1.4 K/uL (0.7-4.9); Hematocrit 33.8 % (36.0-45.0); Lymphocytes % 17.4 % (15.3-44.8); MPV 7.1 fL (7.6-11.3); RBC Red Blood Cell Count 4.25 M/uL (3.86-4.86)
[2021-06-25 13:19] LABS: Potassium 3.6 mmol/L (3.5-5.1)
--- NOTE | 2021-06-25 13:28 | RAD REPORT ---
EXAM DESCRIPTION: RAD - Chest Single View - 06/25/2021 1:16 pm CLINICAL HISTORY: DYSPNEA Chest pain. COMPARISON: Chest Single View dated 06/18/2021; Chest Single View dated 06/10/2021; Chest Single View dated 06/07/2021; Chest Single View dated 06/06/2021; Chest Single View dated 01/31/2021 FINDINGS: Portable technique limits examination quality. Moderate bilateral pulmonary opacities are present likely representing pulmonary edema or pneumonia. The heart is mildly enlarged in size. Bilateral total shoulder arthroplasties. IMPRESSION: Moderate CHF suspected.
[2021-06-25] MEDS ORDERED: ACETAMINOPHEN 325 MG TABLET ONE (13:45)
[2021-06-25] MEDS ORDERED: FUROSEMIDE 40 MG/4 ML VIAL ONE (14:05)
--- NOTE | 2021-06-25 14:12 | EDPHYS ---
Physician Documentation [facility] Name: Fawn Fleming Age: 66 yrs Sex: Female : 1955 Arrival Date: 06/25/2021 Time: 12:46 Bed 7 Private MD: ED Physician Joey Jung HPI: 06/25 15:20 This 66 yrs old Female presents to ER via EMS with complaints of shortness of breath. kb 15:20 The patient has shortness of breath at rest. Onset: The symptoms/episode began/occurred kb just prior to arrival. Duration: The symptoms are continuous. The patient's shortness of breath is aggravated by exertion, is alleviated by nothing. Associated signs and symptoms: The patient has no apparent associated signs or symptoms. Severity of symptoms: At their worst the symptoms were moderate in the emergency department the symptoms are unchanged. The patient has experienced similar episodes in the past. The patient has been recently seen by a physician: the patient's primary care provider. Pt reports shortness of breath that started just prior to arrival at Dr Rahman's office. States she normally wears 2.5-3L O2 at home, but does not have portable o2 so she wasn't on any. EMS reports O2 sat of 84% on room air with wheezing upon their arrival. Historical: - Allergies: 12:48 Bactrim DS; restrepo 12:48 butorphanol tartrate; restrepo 12:48 Fentanyl; restrepo 12:48 Reglan; restrepo 12:48 Stadol; restrepo 12:48 sulfamethoxazole (bulk); restrepo 12:48 TRIMETHOPRIM; restrepo - PMHx: 12:48 Anxiety; Atrial Fib; Bipolar disorder; Chronic pain; COPD; esophageal varices; restrepo Hepatitis; HIV; Hypertension; Migraines; Panic Attacks; - PSHx: 12:48 Appendectomy; Bilateral shoulder repair; Cholecystectomy; hernia repair; R wrist SX; restrepo - Immunization history:: Adult Immunizations up to date. - Social history:: Smoking status: Patient reports the use of cigarette tobacco products. ROS: 15:21 Constitutional: Negative for fever, chills, and weight loss. kb 15:21 Respiratory: Positive for shortness of breath. 15:21 Neuro: Positive for headache. 15:21 All other systems are negative. Exam: 15:21 Constitutional: This is a well developed, well nourished patient who is awake, alert, kb and in no acute distress. Head/Face: Normocephalic, atraumatic. ENT: Moist Mucous membranes Cardiovascular: Regular rate and rhythm with a normal S1 and S2. No gallops, murmurs, or rubs. No pulse deficits. Abdomen/GI: Soft, non-tender. No distention Skin: Warm, dry with normal turgor. Normal color. MS/ Extremity: Pulses equal, no cyanosis. Neurovascular intact. Full, normal range of motion. Neuro: Awake and alert, GCS 15, oriented to person, place, time, and situation. Moves all extremities. Normal gait. Psych: Awake, alert, with orientation to person, place and time. Behavior, mood, and affect are within normal limits. 15:21 Respiratory: mild respiratory distress is noted, Respirations: normal, Breath sounds: wheezing: expiratory that is mild, is scattered. Vital Signs: 12:46 BP 144 / 130; Pulse 68; Resp 24; Temp 98.2(O); Pulse Ox 100% on 3 lpm NC; Weight 74.84 restrepo kg; Height 5 ft. 4 in. (162.56 cm); 12:47 BP 185 / 100; Pulse 65; Resp 18 S; Pulse Ox 99% on 3 lpm NC; jg9 13:55 BP 145 / 63; Pulse 60; Resp 20; Pulse Ox 99% 3 lpm ; jg9 14:30 BP 192 / 97; Pulse 60; Resp 22 S; Pulse Ox 100% on 3 lpm NC; jg9 12:46 Body Mass Index 28.32 (74.84 kg, 162.56 cm) restrepo MDM: 12:48 Patient medically screened. kb 15:22 Data reviewed: vital signs, nurses notes. Data interpreted: Pulse oximetry: on room air kb is 99 %. Interpretation: normal. Counseling: I had a detailed discussion with the patient and/or guardian regarding: the historical points, exam findings, and any diagnostic results supporting the discharge/admit diagnosis, lab results, radiology results, the need for further work-up and treatment in the hospital. Physician consultation: Checo DHILLON regarding admission, to the telemetry unit. patient's condition, and will see patient in ED. 06/25 12:48 Order name: CBC with Diff; Complete Time: 13:21 kb 06/25 12:48 Order name: Basic Metabolic Panel; Complete Time: 13:21 kb 06/25 14:01 Order name: LFT's kb 06/25 14:01 Order name: Magnesium kb 06/25 14:01 Order name: NT PRO-BNP kb 06/25 14:01 Order name: PT-INR kb 06/25 12:48 Order name: Chest Single View XRAY; Complete Time: 13:35 kb 06/25 13:21 Order name: Vital Signs; Complete Time: 14:02 kb 06/25 14:01 Order name: Troponin HS kb 06/25 14:01 Order name: EKG; Complete Time: 14:01 kb 06/25 14:01 Order name: Cardiac monitoring; Complete Time: 14:01 kb 06/25 14:01 Order name: COVID-19 SARS RT PCR (Document "Date of Onset" if Symptomatic); Complete kj1 Time: 15:20 02 14:01 Order name: EKG - Nurse/Tech; Complete Time: 14:01 kb 06/25 14:01 Order name: IV Saline Lock; Complete Time: 14:01 kb 06/25 14:01 Order name: Labs collected and sent; Complete Time: 14:01 kb 06/25 14:01 Order name: O2 Per Protocol; Complete Time: 14:01 kb 06/25 14:01 Order name: O2 Sat Monitoring; Complete Time: 14:02 kb Administered Medications: 13:44 Not Given (Patient Refused): Tylenol 650 mg PO once restrepo 14:20 Drug: Lasix (furosemide) 40 mg Route: IVP; Site: left antecubital; jg9 Disposition: 17:57 Co-signature as Attending Physician, Joey Jung MD I agree with the assessment and kdr plan of care. Disposition Summary: 06/25/21 14:12 Hospitalization Ordered Hospitalization Status: Observation kb Provider: Prince claudia Goodman Location: Telemetry/MedSurg (observation) kb Condition: Stable kb Problem: new kb Symptoms: are unchanged kb Bed/Room Type: Standard kb Room Assignment: 205(06/25/21 15:30) kj1 Diagnosis - Unspecified combined systolic (congestive) and diastolic (congestive) heart failure kb - Hypoxia kb Forms: - Medication Reconciliation Form kb - SBAR form kb Signatures: Dispatcher [employer] EDRosemary Turner, SONG LYRICIST-C SONG LYRICIST-Ckb Joey Jung MD MD kdr Jackson, Kandis kj1 Karen Joseph RN RN jg9 Tata Jarvis RN RN restrepo Corrections: (The following items were deleted from the chart) 15:30 14:12 kb kj1
--- NOTE | 2021-06-25 14:12 | ER ---
Nurse's Notes [facility] Name: Fawn Fleming Age: 66 yrs Sex: Female : 1955 Arrival Date: 06/25/2021 Time: 12:46 Bed 7 Private MD: Diagnosis: Unspecified combined systolic (congestive) and diastolic (congestive) heart failure;Hypoxia Presentation: 06/25 12:46 Chief complaint: Patient states: shortness of breath. Coronavirus screen: Vaccine restrepo status: Patient reports receiving the 2nd dose of the covid vaccine. Ebola Screen: Patient negative for fever greater than or equal to 101.5 degrees Fahrenheit, and additional compatible Ebola Virus Disease symptoms Patient denies exposure to infectious person. Patient denies travel to an Ebola-affected area in the 21 days before illness onset. Initial Sepsis Screen: Does the patient meet any 2 criteria? No. Patient's initial sepsis screen is negative. Does the patient have a suspected source of infection? No. Patient's initial sepsis screen is negative. Risk Assessment: Do you want to hurt yourself or someone else? Patient reports no desire to harm self or others. Onset of symptoms was June 25, 2021. 12:46 Method Of Arrival: EMS: [facility] restrepo 12:46 Acuity: BLAYNE 3 restrepo Triage Assessment: 12:48 General: Appears in no apparent distress. Behavior is calm, cooperative. Pain: Denies restrepo pain. Historical: - Allergies: 12:48 Bactrim DS; restrepo 12:48 butorphanol tartrate; restrepo 12:48 Fentanyl; restrepo 12:48 Reglan; restrepo 12:48 Stadol; restrepo 12:48 sulfamethoxazole (bulk); restrepo 12:48 TRIMETHOPRIM; restrepo - PMHx: 12:48 Anxiety; Atrial Fib; Bipolar disorder; Chronic pain; COPD; esophageal varices; restrepo Hepatitis; HIV; Hypertension; Migraines; Panic Attacks; - PSHx: 12:48 Appendectomy; Bilateral shoulder repair; Cholecystectomy; hernia repair; R wrist SX; restrepo - Immunization history:: Adult Immunizations up to date. - Social history:: Smoking status: Patient reports the use of cigarette tobacco products. Screenin:50 Abuse screen: Denies threats or abuse. Denies injuries from another. Nutritional restrepo screening: No deficits noted. Tuberculosis screening: Fall Risk None identified. Assessment: 12:50 General: Appears in no apparent distress. Behavior is calm, cooperative. Pain: Denies restrepo pain. Respiratory: Reports shortness of breath Airway is patent Breath sounds are diminished Breath sounds with wheezes bilaterally. Vital Signs: 12:46 BP 144 / 130; Pulse 68; Resp 24; Temp 98.2(O); Pulse Ox 100% on 3 lpm NC; Weight 74.84 restrepo kg; Height 5 ft. 4 in. (162.56 cm); 12:47 BP 185 / 100; Pulse 65; Resp 18 S; Pulse Ox 99% on 3 lpm NC; jg9 13:55 BP 145 / 63; Pulse 60; Resp 20; Pulse Ox 99% 3 lpm ; jg9 14:30 BP 192 / 97; Pulse 60; Resp 22 S; Pulse Ox 100% on 3 lpm NC; jg9 12:46 Body Mass Index 28.32 (74.84 kg, 162.56 cm) restrepo ED Course: 12:46 Patient arrived in ED. restrepo 12:48 Rosemary Cespedes FNP-C is PHCP. kb 12:48 Joey Jung MD is Attending Physician. kb 12:48 Triage completed. restrepo 12:48 Arm band placed on. restrepo 12:50 Patient has correct armband on for positive identification. Bed in low position. restrepo 12:50 No provider procedures requiring assistance completed. restrepo 12:58 Inserted saline lock: 22 gauge in left forearm, using aseptic technique. restrepo 13:16 Chest Single View XRAY In Process Unspecified. EDMS 14:11 Prince Goodman MD is Hospitalizing Provider. kb 14:26 Karen Joseph, ASHLEY is Primary Nurse. jg9 15:51 Patient admitted, IV remains in place. restrepo Administered Medications: 13:44 Not Given (Patient Refused): Tylenol 650 mg PO once restrepo 14:20 Drug: Lasix (furosemide) 40 mg Route: IVP; Site: left antecubital; jg9 Outcome: 14:12 Decision to Hospitalize by Provider. kb 15:50 Admitted to Med/surg accompanied by tech, via wheelchair. restrepo 15:50 Condition: good 15:50 Instructed on the need for admit. 15:51 Patient left the ED. restrepo Signatures: Dispatcher [employer] EDMS Rosemary Cespedes FNP-C FNP-Ckb Gilmore, Karen, RN RN jg9 Tata Jarvis RN RN restrepo Corrections: (The following items were deleted from the chart) 15:55 15:53 BP 148 / 92; Pulse 63bpm; Resp 22bpm; Spontaneous; Pulse Ox 100% 3 lpm Nasal jg9 Cannula; jg9
--- NOTE | 2021-06-25 15:19 | P.HP ---
Certification for Inpatient Patient admitted to: Inpatient With expected LOS: <2 Midnights Patient will require the following post-hospital care: None Practitioner: I am a practitioner with admitting privileges, knowledge of patient current condition, hospital course, and medical plan of care. Services: Services provided to patient in accordance with Admission requirements found in Title 42 Section 412.3 of the Code of Federal Regulations Patient History Date of Service: 06/25/21 Reason for admission: CHF exacerbation History of Present Illness: Ms. Fleming is a 66 yo F with CHF, COPD on Home O2, HIV, bipolar disorder, atrial fibrillation on chronic anticoagulation, HTN who was brought in by EMS after her PCP called 911 for hypoxia in the office today. She says her O2 sats dropped as low as 70% just walking to the lobby of his office. She was not on oxygen when she went to clinic today because she did not realize she was eligible for portable O2 through Medicare. She says she has felt SOB at home anytime she has to take more than a few steps, but symptoms worsened once she left the house. She was recently discharged from the hospital on Tuesday for COPD exacerbation and hematoma formation at groin site after recent cardiac ablation. Her appointment today was schedule for followup following hospital admission. She is on Lasix 40mg BID but she says her PCP was going to change her to HCTZ today. Her complaint at bedside is that her chest and head are hurting from coughing so much, and she is requesting morphine. Sats have improved to 100% on 4L O2 and she received IV Lasix in the ED. CXR IMPRESSION: Moderate CHF suspected. Allergies fentanyl Allergy (Severe, Verified 03/31/21 11:11) Hives butorphanol tartrate [From Stadol] Allergy (Verified 03/31/21 11:11) confusion metoclopramide HCl [From Reglan] Allergy (Verified 03/31/21 11:11) Shortness of breath sulfamethoxazole [From Bactrim] Allergy (Verified 03/31/21 11:11) Hives/Rash trimethoprim [From Bactrim] Allergy (Verified 03/31/21 11:11) Hives/Rash Bactrim DS Allergy (Intermediate, Uncoded 03/31/21 11:11) Nausea/Vomiting Home Medications: Raltegravir Potassium [Isentress] 1 tab PO BID 10/08/12 Sertraline [Zoloft*] 2 tab PO DAILY 09/15/12 Metoprolol Tartrate 100 mg PO BID #60 tablet 02/03/20 Apixaban [Eliquis] 1 tab PO BID 07/30/20 Emtricitabine/Tenofov Alafenam [Descovy 200-25 mg Tablet] 1 tab PO DAILY 03/05/21 Hydralazine HCl 50 mg PO TID 03/05/21 Amlodipine Besylate 1 tab PO DAILY 03/30/21 Buspirone HCl 30 mg PO BID 03/30/21 Dexlansoprazole [Dexilant] 60 mg PO DAILY 03/30/21 Docusate/Senna [Senokot-S*] 1 tab PO DAILY PRN 03/30/21 buPROPion HCL [Bupropion Xl] 1 tab PO DAILY 04/03/21 Ferrous Sulfate [Iron] 325 mg PO DAILY 30 Days #30 tablet 04/15/21 Albuterol Inhaler [Ventolin Inhaler*] 2 puff IH TID PRN #1 05/28/21 Amiodarone HCl [Cordarone*] 200 mg PO DAILY #30 tab 05/28/21 Lisinopril [Zestril] 1 tab PO DAILY #30 05/28/21 Mometasone/Formoterol [Dulera 200 Mcg/5 Mcg Inhaler] 2 puff IH BID #1 inhaler 05/28/21 Prednisone [Sterapred Ds] 10 mg PO SEECOM #21 tab 05/28/21 Furosemide [Lasix] 40 mg PO BID #60 tablet 06/08/21 predniSONE [Prednisone*] 20 mg PO BID #10 tab 06/08/21 Atorvastatin Calcium [Lipitor] 40 mg PO BEDTIME #60 tab 06/20/21 Benzonatate [Tessalon Perle*] 100 mg PO TID PRN #30 cap 06/20/21 Hydrocodone/Chlorphen Polis [Tussionex Oral Susp*] 5 ml PO BID PRN #100 ml 06/20/21 Pantoprazole [Protonix Tab*] 40 mg PO BIDAC #60 tab 06/20/21 - Past Medical/Surgical History Diabetic: No -: HIV diag ~ [address] Yohan Cardenas in [place] -: CAD -: Bipolar disorder Dr Krause in [place] -: Hypertension -: COPD on home O2 -: Tobacco abuse -: former Alcohol abuse -: Anemia likely of chronic disease -: Hyperlipidemia -: GERD with hiatal hernia -: Atrial fibrillation on chronic anticoagulation therapy -: Chronic diastolic CHF -: Appendectomy -: Cholecystectomy -: left and right shoulder rotator cuff repair -: Right foot repair -: Right shoulder replacement -: left shoulder rotated cuff -: hiatal hernia repair february 2021 -: right wrist Psychosocial/ Personal History: She lives at home. She is not . - Family History Father -: Heart disease, Hypertension, Lung disease, GI disease, Diabetes, Stroke, Liver disease, Kidney disease Mother -: Hypertension, Lung disease, GI disease, Blood disorders, Other (see notes) Notes: Epilepsy, chronic pain, leukemia - Social History Smoking Status: Unknown if ever smoked Alcohol use: No CD- Drugs: No Caffeine use: Yes Place of Residence: Home Review of Systems 10-point ROS is otherwise unremarkable General: Unremarkable Eyes: Unremarkable Respiratory: Cough, Shortness of Breath, SOB with Excertion, Pleuritic Pain Cardiovascular: Unremarkable Gastrointestinal: Unremarkable Genitourinary: Unremarkable Musculoskeletal: Unremarkable Integumentary: Unremarkable Neurological: Unremarkable Lymphatics: Unremarkable Physical Examination - Physical Exam General: Alert, In no apparent distress HEENT: Atraumatic, PERRLA, Mucous membr. moist/pink, EOMI, Sclerae nonicteric Neck: Supple, 2+ carotid pulse no bruit, No LAD, Without JVD or thyroid abnormality Respiratory: Diminished Cardiovascular: No edema, Regular rate/rhythm, Normal S1 S2 Gastrointestinal: Normal bowel sounds, No tenderness Musculoskeletal: No tenderness Integumentary: No rashes Neurological: Normal speech, Normal strength at 5/5 x4 extr, Normal tone, Normal affect Lymphatics: No axilla or inguinal lymphadenopathy - Studies Laboratory Data (last 24 hrs) 06/25/21 12:57: Sodium 140, Potassium 3.6, BUN 13, Creatinine 0.89, Glucose 111 H 06/25/21 12:57: WBC 8.20, Hgb 10.2 L, Hct 33.8 L, Plt Count 219 D Assessment and Plan - Problems (Diagnosis) (1) Acute on chronic diastolic heart failure Current Visit: No Status: Acute (2) SOB (shortness of breath) Current Visit: No Status: Acute (3) Anemia of chronic disease Current Visit: No Status: Chronic (4) Atrial fibrillation Current Visit: No Status: Chronic Qualifiers: (5) Bipolar disorder Onset Date: 05/26/15 Current Visit: No Status: Chronic Qualifiers: (6) COPD (chronic obstructive pulmonary disease) Onset Date: 05/26/15 Current Visit: No Status: Chronic Qualifiers: (7) H/O cardiac radiofrequency ablation Current Visit: No Status: Chronic (8) HIV (human immunodeficiency virus infection) Current Visit: No Status: Chronic Qualifiers: (9) Hypertension Onset Date: 05/26/15 Current Visit: No Status: Chronic Qualifiers: - Plan continue IV lasix continue O2, daily weights, heart healthy diet, fluid restriction continue tussionex PRN for cough social work consulted to arrange portable O2 hydralazine PRN for BP spikes breathing treatments as needed reconcile and continue home medications DVT ppx Discharge Plan: Home Plan to discharge in: 24 Hours - Advance Directives Does patient have a Living Will: No Does patient have a Durable POA for Healthcare: No - Code Status/Comfort Care Code Status Assessed: Yes (full code ) Critical Care: No Time Spent Managing Pts Care (In Minutes): 70
[2021-06-25] MEDS ORDERED: ALBUTEROL 2.5 MG/3 ML NEB SOL NEB PRN (15:21)
[2021-06-25] MEDS ORDERED: HYDRALAZINE HCL 20 MG/ML VIAL IV PRN (15:21)
[2021-06-25] MEDS ORDERED: IPRATROPIUM BROM 0.5MG/2.5ML NEB PRN (15:21)
[2021-06-25] MEDS ORDERED: ACETAMINOPHEN 500 MG TAB PO PRN (15:21)
[2021-06-25] MEDS ORDERED: HYDRALAZINE HCL 20 MG/ML VIAL ONE (15:29)
[2021-06-25] MEDS: PANTOPRAZOLE 40MG TABLET PO SCH (17:00)
[2021-06-25] MEDS ORDERED: HYDRALAZINE HCL 20 MG/ML VIAL IV ONE (17:44)
[2021-06-25] MEDS: HYDROCODONE/CHLORPHEN 5 ML/OSYR PO PRN (18:00)
[2021-06-25 18:18] LABS: Protime INR 1.31
[2021-06-25] MEDS ORDERED: PNEUMOCOCCAL VACCINE 0.5 ML IMVAC ONE (19:00)
[2021-06-25] MEDS: BUSPIRONE HCL 15 MG TABLET PO SCH (19:49)
[2021-06-25] MEDS: APIXABAN 5 MG TABLET PO SCH (19:49)
[2021-06-25] MEDS: ATORVASTATIN 40 MG TAB PO SCH (19:50)
[2021-06-25] MEDS: METOPROLOL TAR 50 MG TAB PO SCH (19:50)
[2021-06-25] MEDS: RALTEGRAVIR POTASSIUM 400 MG PO SCH (19:53)
[2021-06-25 20:02] LABS: Bilirubin Direct 0.2 mg/dL (0-0.2); Bilirubin Total 0.5 mg/dL (0.2-1.0); Protein, Total 7.5 g/dL (6.4-8.2); Troponin High Sensitivity 15.7 pg/mL (<58.9)
[2021-06-25] MEDS ORDERED: GUAIFENESIN/CODEINE 5ML UCUP PO ONE (20:48)
[2021-06-25] MEDS ORDERED: RALTEGRAVIR POTASSIUM 400 MG TABLET PO SCH (21:00)
[2021-06-25] MEDS ORDERED: HOME MED 1 EA UNK (Hydralazine Hcl [Hydralazine Hcl] 50 MG Tablet) PO SCH (21:00)
[2021-06-25] MEDS ORDERED: HOME MED 1 EA UNK (Metoprolol Tartrate [Metoprolol Tartrate] 100 MG Tablet) PO SCH (21:00)
[2021-06-25] MEDS: HYDRALAZINE HCL 25 MG TABLET PO SCH (21:25)
[2021-06-26] MEDS: HYDROCODONE/CHLORPHEN 5 ML/OSYR PO PRN (04:49)
[2021-06-26 05:46] LABS: Absolute Lymphocytes (CBC) 1.2 K/uL (0.7-4.9); Hematocrit 29.3 % (36.0-45.0); Lymphocytes % 18.8 % (15.3-44.8); MPV 7.2 fL (7.6-11.3); RBC Red Blood Cell Count 3.74 M/uL (3.86-4.86)
[2021-06-26 07:00] LABS: Albumin 2.4 g/dL (3.4-5.0); Bilirubin Total 0.4 mg/dL (0.2-1.0); Phosphorus 4.2 mg/dL (2.5-4.9); Potassium 3.1 mmol/L (3.5-5.1); Protein, Total 6.3 g/dL (6.4-8.2); Thyroid Stimulating Hormone 2.85 uIU/mL (0.360-3.740)
[2021-06-26] MEDS: AMIODARONE HCL 200 MG TAB PO SCH (08:47)
[2021-06-26] MEDS: METOPROLOL TAR 50 MG TAB PO SCH ×2 (08:47→21:15)
[2021-06-26] MEDS: HYDRALAZINE HCL 25 MG TABLET PO SCH ×4 (08:47→22:38)
[2021-06-26] MEDS: APIXABAN 5 MG TABLET PO SCH ×2 (08:47→21:15)
[2021-06-26] MEDS: AMLODIPINE 10 MG TAB PO SCH (08:48)
[2021-06-26] MEDS: SERTRALINE HCL 100 MG TAB PO SCH (08:48)
[2021-06-26] MEDS: PANTOPRAZOLE 40MG TABLET PO SCH ×2 (08:49→16:35)
[2021-06-26] MEDS: FERROUS SULFATE 325 MG TAB PO SCH (08:49)
[2021-06-26] MEDS: FUROSEMIDE 40 MG/4 ML VIAL IV SCH ×2 (08:50→16:34)
[2021-06-26] MEDS: BUPROPION HCL XL 150 MG TAB PO SCH (08:51)
[2021-06-26] MEDS: RALTEGRAVIR POTASSIUM 400 MG PO SCH ×2 (08:51→21:00)
[2021-06-26] MEDS: BUSPIRONE HCL 15 MG TABLET PO SCH ×2 (08:52→21:18)
[2021-06-26] MEDS: EMTRICITABINE PO SCH (08:53)
[2021-06-26] MEDS: TENOFOV ALAFENAM PO SCH (08:53)
[2021-06-26] MEDS ORDERED: lisinopriL 20 MG TAB PO SCH (09:00)
[2021-06-26] MEDS ORDERED: HOME MED 1 EA UNK (Lisinopril [Zestril] 40 MG Tablet) PO SCH (09:00)
[2021-06-26] MEDS ORDERED: POTASSIUM CL SA 10 MEQ TAB PO ONE (09:00)
[2021-06-26] MEDS: HYDROCODONE/APAP 7.5/325 MG TAB PO PRN ×4 (09:30→21:15)
[2021-06-26] MEDS: LIDOCAINE 4% PATCH TOP SCH (09:57)
--- NOTE | 2021-06-26 10:06 | P.PN ---
Subjective Date of Service: 06/26/21 Chief Complaint: CHF exacerbation Subjective: Improving (Pateint is having pleuritic chest pain and headache that comes on with coughing.) Physical Examination - Vital Signs Temperature: 97.3 F Blood Pressure: 186/93 Pulse: 63 Respirations: 22 Pulse Ox (%): 97 - Physical Exam General: In no apparent distress, Oriented x3, Other HEENT: Atraumatic, Normocephalic, EOMI Respiratory: Diminished, Other (RLL crackles) Cardiovascular: Normal pulses, Regular rate/rhythm, Normal S1 S2, No murmurs Musculoskeletal: No clubbing, No swelling, No contractures Neurological: Normal speech, Normal affect - Studies Laboratory Data (last 24 hrs) 06/25/21 12:57: Sodium 140, Potassium 3.6, BUN 13, Creatinine 0.89, Glucose 111 H 06/25/21 12:57: WBC 8.20, Hgb 10.2 L, Hct 33.8 L, Plt Count 219 D Assessment And Plan - Current Problems (Diagnosis) (1) Acute on chronic diastolic heart failure Current Visit: No Status: Acute (2) Acute renal injury Onset Date: 06/30/17 Current Visit: No Status: Acute (3) Chest pain Onset Date: 05/26/15 Current Visit: No Status: Acute Qualifiers: Chest pain type: unspecified Qualified Code(s): R07.9 - Chest pain, unspecified (4) GERD (gastroesophageal reflux disease) Current Visit: No Status: Acute (5) Pleuritic chest pain Current Visit: No Status: Acute (6) TIA (transient ischemic attack) Onset Date: 06/19/18 Current Visit: No Status: Acute (7) H/O cardiac radiofrequency ablation Current Visit: No Status: Chronic (8) HIV (human immunodeficiency virus infection) Current Visit: No Status: Chronic Qualifiers: (9) Hiatal hernia with GERD Onset Date: 02/26/16 Current Visit: No Status: Chronic (10) Hypertension Onset Date: 05/26/15 Current Visit: No Status: Chronic Qualifiers: Physician Review Additional Text: Assessment Patient is a 66 year old female with obesity, HIV, HTN and CHF. She is being admitted for decompensated CHF after she presented with shortness of breath. She is requiring supplemental O2 at this time. She has a history of COPD and chronic respiratory failure and requires 3 L at home. She is receiving diuresis here. She had an unwitnessed fall incident on 06/26 and hit the back of her head Acute on chronic diastolci CHF Acute on chronic respiratory failure ROHAN HTN Obesity HIV Fall plan: Continue diuresis Monitor I/O Repeat BNP tomorrow Follow up TTE Wean off O2 DC lisinopril due to ROHAN. Will monitor renal function and consult Nephrology if indicated Increase hydralazine dose for elevated BP Lidocaine patch and guaifenesin for chest pain CT head to r/o intracranial injury
--- NOTE | 2021-06-26 11:15 | RAD REPORT ---
EXAM DESCRIPTION: CT - Head Brain Wo Cont - 06/26/2021 11:08 am CLINICAL HISTORY: fall COMPARISON: Head Brain Wo Cont dated 06/07/2021; Head Brain Wo Cont dated 10/22/2018 TECHNIQUE: All CT scans are performed using dose optimization technique as appropriate and may inclu de automated exposure control or mA/KV adjustment according to patient size. FINDINGS: No intracranial hemorrhage, hydrocephalus or extra-axial fluid collection.No areas of brai n edema or evidence of midline shift. Moderate chronic small vessel ischemic changes. The paranasal sinuses and mastoids are clear. The calvarium is intact. IMPRESSION: No acute intracranial abnormality.
[2021-06-26] MEDS: GUAIFENESIN/CODEINE 5ML UCUP PO PRN ×3 (11:32→23:34)
--- NOTE | 2021-06-26 14:26 | P.CNS ---
Date of Consult: 06/26/21 Reason for Consult: elevated creatinine Requesting Physician: Prince Maria Elena Goodman Chief Complaint: CHF exacerbation History of Present Illness: 66 yr old female with HIV, HTN, ATRIAL FIB on A/C with Eliquis , COPD admitted for exertional dyspnea with hypoxia . noted with XR showing b/l pulmonary edema and elevated BNP and started on lasix IV now with improving resp symptoms . Creatinine worsen from 0.8 to 1.5 and associated hypokalemia with diuresis now . Lisnopril held this am -patient denies prior hx of kidney problems , state intermittent blood in her underwear but unsure of hematuria . No dysuria or foamy urine Allergies fentanyl Allergy (Severe, Verified 03/31/21 11:11) Hives butorphanol tartrate [From Stadol] Allergy (Verified 03/31/21 11:11) confusion metoclopramide HCl [From Reglan] Allergy (Verified 03/31/21 11:11) Shortness of breath sulfamethoxazole [From Bactrim] Allergy (Verified 03/31/21 11:11) Hives/Rash trimethoprim [From Bactrim] Allergy (Verified 03/31/21 11:11) Hives/Rash Bactrim DS Allergy (Intermediate, Uncoded 03/31/21 11:11) Nausea/Vomiting Home Medications: Raltegravir Potassium [Isentress] 1 tab PO BID 02/28/12 Sertraline [Zoloft*] 2 tab PO DAILY 09/15/12 Metoprolol Tartrate 100 mg PO BID #60 tablet 02/03/20 Apixaban [Eliquis] 1 tab PO BID 07/30/20 Emtricitabine/Tenofov Alafenam [Descovy 200-25 mg Tablet] 1 tab PO DAILY Hydralazine HCl 50 mg PO TID 03/05/21 Amlodipine Besylate 1 tab PO DAILY 03/30/21 Buspirone HCl 30 mg PO BID 03/30/21 Dexlansoprazole [Dexilant] 60 mg PO DAILY 03/30/21 Docusate/Senna [Senokot-S*] 1 tab PO DAILY PRN 03/30/21 buPROPion HCL [Bupropion Xl] 1 tab PO DAILY 04/03/21 Ferrous Sulfate [Iron] 325 mg PO DAILY 30 Days #30 tablet 04/15/21 Albuterol Inhaler [Ventolin Inhaler*] 2 puff IH TID PRN #1 05/28/21 Amiodarone HCl [Cordarone*] 200 mg PO DAILY #30 tab 05/28/21 Lisinopril [Zestril] 1 tab PO DAILY #30 05/28/21 Mometasone/Formoterol [Dulera 200 Mcg/5 Mcg Inhaler] 2 puff IH BID #1 inhaler 05/28/21 Prednisone [Sterapred Ds] 10 mg PO SEECOM #21 tab 05/28/21 Furosemide [Lasix] 40 mg PO BID #60 tablet 06/08/21 predniSONE [Prednisone*] 20 mg PO BID #10 tab 06/08/21 Atorvastatin Calcium [Lipitor] 40 mg PO BEDTIME #60 tab 06/20/21 Benzonatate [Tessalon Perle*] 100 mg PO TID PRN #30 cap 06/20/21 Hydrocodone/Chlorphen Polis [Tussionex Oral Susp*] 5 ml PO BID PRN #100 ml 06/20/21 Pantoprazole [Protonix Tab*] 40 mg PO BIDAC #60 tab 06/20/21 - Past Medical/Surgical History Diabetic: No -: HIV diag ~ [address] Yohan Cardenas in [place] -: CAD -: Bipolar disorder Dr Krause in [place] -: Hypertension -: COPD on home O2 -: Tobacco abuse -: former Alcohol abuse -: Anemia likely of chronic disease -: Hyperlipidemia -: GERD with hiatal hernia -: Atrial fibrillation on chronic anticoagulation therapy -: Chronic diastolic CHF -: Appendectomy -: Cholecystectomy -: left and right shoulder rotator cuff repair -: Right foot repair -: Right shoulder replacement -: left shoulder rotated cuff -: hiatal hernia repair february 2021 -: right wrist Psychosocial/ Personal History: She lives at home. She is not . - Family History Father Medical History: Heart disease, Hypertension, Lung disease, GI disease, Diabetes, Stroke, Liver disease, Kidney disease Mother Medical History: Hypertension, Lung disease, GI disease, Blood disorders, Other (see notes) Notes: Epilepsy, chronic pain, leukemia - Social History Smoking Status: Former smoker Alcohol use: No CD- Drugs: No Caffeine use: Yes Place of Residence: Home Review of Systems 10-point ROS is otherwise unremarkable Physical Examination Temp Pulse Resp BP Pulse Ox 96.9 F 65 21 H 173/81 H 94 06/26/21 12:00 06/26/21 12:00 06/26/21 12:00 06/26/21 12:00 06/26/21 12:00 General: Alert, Oriented x3, Obese HEENT: Atraumatic, Normocephalic, PERRLA Neck: Supple, 2+ carotid pulse no bruit, JVD not distended Respiratory: Diminished, Expiratory wheezes Cardiovascular: No edema, Regular rate/rhythm, Normal S1 S2 Gastrointestinal: Normal bowel sounds, Soft and benign, Non-distended Musculoskeletal: No clubbing, No swelling Integumentary: No rashes, No breakdown Neurological: Normal gait, Normal speech, Normal strength at 5/5 x4 extr - Problems (1) Hypokalemia Current Visit: No Status: Active (2) Acute on chronic diastolic heart failure Current Visit: No Status: Acute (3) Acute renal injury Onset Date: 06/30/17 Current Visit: No Status: Acute (4) CHF exacerbation Current Visit: No Status: Acute Qualifiers: Heart failure type: unspecified Qualified Code(s): I50.9 - Heart failure, unspecified (5) COPD exacerbation Current Visit: No Status: Acute Physician Review Additional Text: ROHAN -possible due to cardiorenal sydnrome type II Recurrent Hematuria -presumed HTN-uncontrolled COPD HIV on HAART Atrial Fib -on Eliquis Presumed diastolic CHF Hypokalemia PLAN -Obtain urine studies for fena and proteinuria -renal sono to r/o calculi -obtain UA for hematuria -renally dose all meds - c/w to hold ACEI for now -consider combo of dinitrate and Hydralazine for BP control -c/w lasix diuresis -follow mag level and replete - will continue to follow BMP daily - if EF is low , may need iotropic agent Thank you Dr Goodman fro this consult , will follow along with my team Time Spent Managing Pts care (In Minutes): 65
--- NOTE | 2021-06-26 14:41 | EKG ---
Test Date: 2021-06-25 Test Time: 12:59:05 Room Attendants: JESUS MEASUREMENT RESULTS: Intervals: Rate: 63 DE: 136 QRSD: 80 QT: 438 QTc: 448 [place]: P: 38 DE: 136 QRS: 26 T: 39 INTERPRETIVE STATEMENTS: Normal sinus rhythm Nonspecific ST abnormality Abnormal ECG Compared to ECG 06/19/2021 06:03:47 ST (T wave) deviation now present Atrial fibrillation no longer present Left ventricular hypertrophy no longer present Early repolarization no longer present Electronically Signed On 06-26-21 14:40:29 [employer] INST[employer] by Per Crane
--- NOTE | 2021-06-26 15:00 | ECHO ---
HEIGHT: 5 ft 4 in WEIGHT: 164 lb 15.903 oz DATE OF STUDY: 06/26/[address]: Prince Maria Elena Goodman MD 2-DIMENSIONAL: YES M.MODE: YES DOPPLER: YES COLOR FLOW: YES TDS: NO PORTABLE: NO DEFINITY: NO BUBBLE STUDY: NO DIAGNOSIS: CONGESTIVE HEART FAILURE CARDIAC HISTORY: CATHERIZATION: NO SURGERY: NO PROSTHETIC VALVE: NO PACEMAKER: NO MEASUREMENTS (cm) DIASTOLIC (NORMALS) SYSTOLIC (NORMALS) IVSd 1.2 (0.6-1.2) LA Diam 4.3 (1.9-4.0) LVEF 54% LVIDd 3.9 (3.5-5.7) LVIDs 2.8 (2.0-3.5) %FS 28% LVPWd 1.3 (0.6-1.2) Ao Diam 2.8 (2.0-3.7) 2 DIMENSIONAL ASSESSMENT: RIGHT ATRIUM: NORMAL LEFT ATRIUM: DILATED RIGHT VENTRICLE: NORMAL LEFT VENTRICLE: LEFT VENTRICULAR HYPERTROPHY TRICUSPID VALVE: NORMAL MITRAL VALVE: NORMAL PULMONIC VALVE: NORMAL AORTIC VALVE: NORMAL PERICARDIAL EFFUSION: NONE AORTIC ROOT: NORMAL LEFT VENTRICULAR WALL MOTION: NORMAL DOPPLER/COLOR FLOW: TRACE TRICUSPID REGURGITATION. COMMENTS: TRACE TRICUSPID REGURGITATION. NORMAL LEFT VENTRICULAR EJECTION FRACTION. LEFT VENTRICULAR HYPERTROPHY. LEFT ATRIAL ENLARGEMENT. TECHNOLOGIST: Maria M CABAN
[2021-06-26 15:27] LABS: Magnesium 1.8
[2021-06-26 17:37] VITALS: BMI 28.3
--- NOTE | 2021-06-26 18:01 | RAD REPORT ---
EXAM DESCRIPTION: US - Renal Ultrasound-Complete - 06/26/2021 5:29 pm CLINICAL HISTORY: ARF Flank pain COMPARISON: Renal Ultrasound-Complete dated 06/18/2019 FINDINGS: Both kidneys are normal in size, shape and echotexture. The right kidney measures 11.2 x 5.6 x 5.6 cm. No hydronephrosis, focal mass or perinephric fluid. Mu ltiple right renal cysts, largest measuring 3.8 cm. The left kidney measures 10.0 x 5.4 x 4.7 cm. No hydronephrosis, focal mass or perinephric fluid. Mul tiple left renal cysts, largest measuring 4.9 cm. The urinary bladder is incompletely distended without gross abnormality seen. IMPRESSION: Bilateral renal cysts, otherwise negative study.
[2021-06-26] MEDS ORDERED: HYDROCORTISONE 1 % CREAM 30GM TOP PRN (18:55)
[2021-06-26] MEDS: ATORVASTATIN 40 MG TAB PO SCH (21:15)
[2021-06-27] MEDS: PANTOPRAZOLE 40MG TABLET PO SCH ×2 (01:11→17:31)
[2021-06-27 06:05] LABS: Absolute Lymphocytes (CBC) 0.9 K/uL (0.7-4.9); Hematocrit 31.3 % (36.0-45.0); Lymphocytes % 15.7 % (15.3-44.8); MPV 7.7 fL (7.6-11.3); RBC Red Blood Cell Count 3.99 M/uL (3.86-4.86)
[2021-06-27 06:22] LABS: Albumin 2.5 g/dL (3.4-5.0); Bilirubin Total 0.4 mg/dL (0.2-1.0); Potassium 3.5 mmol/L (3.5-5.1); Protein, Total 6.4 g/dL (6.4-8.2)
[2021-06-27] MEDS ORDERED: MORPHINE 2 MG/ML SYR IV ONE (08:38)
[2021-06-27] MEDS: LIDOCAINE 4% PATCH TOP SCH (08:47)
[2021-06-27] MEDS: BUPROPION HCL XL 150 MG TAB PO SCH (08:48)
[2021-06-27] MEDS: BUSPIRONE HCL 15 MG TABLET PO SCH ×2 (08:48→21:30)
[2021-06-27] MEDS: FERROUS SULFATE 325 MG TAB PO SCH (08:48)
[2021-06-27] MEDS: SERTRALINE HCL 100 MG TAB PO SCH (08:48)
[2021-06-27] MEDS: AMLODIPINE 10 MG TAB PO SCH (08:49)
[2021-06-27] MEDS: FUROSEMIDE 40 MG/4 ML VIAL IV SCH ×2 (08:49→17:31)
[2021-06-27] MEDS: HYDRALAZINE HCL 25 MG TABLET PO SCH ×3 (08:49→21:29)
[2021-06-27] MEDS: APIXABAN 5 MG TABLET PO SCH ×2 (08:49→21:29)
[2021-06-27] MEDS: METOPROLOL TAR 50 MG TAB PO SCH ×2 (08:49→21:29)
[2021-06-27] MEDS: AMIODARONE HCL 200 MG TAB PO SCH (08:49)
[2021-06-27] MEDS: TENOFOV ALAFENAM PO SCH (08:51)
[2021-06-27] MEDS: RALTEGRAVIR POTASSIUM 400 MG PO SCH ×2 (08:51→21:28)
[2021-06-27] MEDS: EMTRICITABINE PO SCH (08:51)
[2021-06-27] MEDS ORDERED: POTASSIUM CL SA 10 MEQ TAB PO ONE (09:00)
--- NOTE | 2021-06-27 10:09 | P.PN ---
Subjective Date of Service: 06/27/21 Chief Complaint: CHF exacerbation Subjective: Improving (Patient continues to have headache and pleuritic chest pain) Physical Examination - Vital Signs Temperature: 97.9 F Blood Pressure: 154/86 Pulse: 68 Respirations: 18 Pulse Ox (%): 98 - Physical Exam General: In no apparent distress, Cooperative, Obese HEENT: Atraumatic, Normocephalic Respiratory: Clear to auscultation bilaterally, Normal air movement Cardiovascular: Regular rate/rhythm, Normal S1 S2 Musculoskeletal: No clubbing, No swelling, No contractures Neurological: Normal speech, Sensation intact, Normal affect Assessment And Plan - Current Problems (Diagnosis) (1) Acute on chronic diastolic heart failure Current Visit: No Status: Acute (2) Acute renal injury Onset Date: 06/30/17 Current Visit: No Status: Acute (3) Chest pain Onset Date: 05/26/15 Current Visit: No Status: Acute Qualifiers: Chest pain type: unspecified Qualified Code(s): R07.9 - Chest pain, unspecified (4) GERD (gastroesophageal reflux disease) Current Visit: No Status: Acute (5) Pleuritic chest pain Current Visit: No Status: Acute (6) TIA (transient ischemic attack) Onset Date: 06/19/18 Current Visit: No Status: Acute (7) H/O cardiac radiofrequency ablation Current Visit: No Status: Chronic (8) HIV (human immunodeficiency virus infection) Current Visit: No Status: Chronic Qualifiers: (9) Hiatal hernia with GERD Onset Date: 02/26/16 Current Visit: No Status: Chronic (10) Hypertension Onset Date: 05/26/15 Current Visit: No Status: Chronic Qualifiers: Physician Review Additional Text: Assessment Patient is a 66 year old female with obesity, HIV, HTN and CHF. She is being admitted for decompensated CHF after she presented with shortness of breath. She is requiring supplemental O2 at this time. She has a history of COPD and chronic respiratory failure and requires 3 L at home. She is receiving diuresis here. She had an unwitnessed fall incident on 06/26 and hit the back of her head. CT head ruled out intracranial abnormalities. Acute on chronic diastolic CHF - TTE with preserved LVEF. Mild LVH. Acute on chronic respiratory failure ROHAN HTN Obesity HIV Fall plan: She continues to improve on diuresis Monitor I/O Repeat BNP tomorrow Wean off O2 Renal function is improving BP control
[2021-06-27] MEDS: HYDROCODONE/APAP 7.5/325 MG TAB PO PRN (14:36)
[2021-06-27] MEDS: ONDANSETRON 4 MG/2 ML VIAL IV PRN ×2 (14:37→21:25)
--- NOTE | 2021-06-27 14:59 | P.PN ---
Subjective Date of Service: 06/27/21 Chief Complaint: CHF exacerbation Subjective: No new changes, Improving Physical Examination - Vital Signs Temperature: 97.1 F Blood Pressure: 146/77 Pulse: 62 Respirations: 22 Pulse Ox (%): 95 - Physical Exam General: Alert, Oriented x3 HEENT: Atraumatic, Normocephalic Respiratory: Normal air movement Cardiovascular: Regular rate/rhythm, Normal S1 S2 Gastrointestinal: Soft and benign Neurological: Normal speech, Normal strength at 5/5 x4 extr, Normal tone Assessment And Plan - Plan ROHAN -possible due to cardiorenal sydnrome type II Recurrent Hematuria -presumed HTN-uncontrolled COPD HIV on HAART Atrial Fib -on Eliquis Presumed diastolic CHF Hypokalemia PLAN Cr trending down now. urine output is better. we will continue with lasix diuresis -follow mag level and replete - will continue to follow BMP daily we will follow I/O closely. Physician Review Additional Text: Assessment Patient is a 66 year old female with obesity, HIV, HTN and CHF. She is being admitted for decompensated CHF after she presented with shortness of breath. She is requiring supplemental O2 at this time. She has a history of COPD and chronic respiratory failure and requires 3 L at home. She is receiving diuresis here. She had an unwitnessed fall incident on 06/26 and hit the back of her head. CT head ruled out intracranial abnormalities. Acute on chronic diastolic CHF - TTE with preserved LVEF. Mild LVH. Acute on chronic respiratory failure ROHAN HTN Obesity HIV Fall plan: She continues to improve on diuresis Monitor I/O Repeat BNP tomorrow Wean off O2 Renal function is improving BP control
[2021-06-27] MEDS: ATORVASTATIN 40 MG TAB PO SCH (21:29)
[2021-06-28] MEDS: ONDANSETRON 4 MG/2 ML VIAL IV PRN ×4 (03:46→20:49)
[2021-06-28 06:07] LABS: Absolute Lymphocytes (CBC) 0.9 K/uL (0.7-4.9); Hematocrit 31.5 % (36.0-45.0); Lymphocytes % 14.8 % (15.3-44.8); MPV 7.7 fL (7.6-11.3); RBC Red Blood Cell Count 3.95 M/uL (3.86-4.86)
[2021-06-28 07:39] LABS: Albumin 2.6 g/dL (3.4-5.0); Bilirubin Total 0.4 mg/dL (0.2-1.0); Potassium 3.7 mmol/L (3.5-5.1); Protein, Total 6.5 g/dL (6.4-8.2)
[2021-06-28] MEDS: RALTEGRAVIR POTASSIUM 400 MG PO SCH ×2 (08:33→20:51)
[2021-06-28] MEDS: BUSPIRONE HCL 15 MG TABLET PO SCH ×2 (08:34→20:52)
[2021-06-28] MEDS: TENOFOV ALAFENAM PO SCH (08:35)
[2021-06-28] MEDS: BUPROPION HCL XL 150 MG TAB PO SCH (08:35)
[2021-06-28] MEDS: HYDRALAZINE HCL 25 MG TABLET PO SCH ×3 (08:35→20:52)
[2021-06-28] MEDS: EMTRICITABINE PO SCH (08:35)
[2021-06-28] MEDS: FERROUS SULFATE 325 MG TAB PO SCH ×2 (08:36→09:00)
[2021-06-28] MEDS: SERTRALINE HCL 100 MG TAB PO SCH (08:36)
[2021-06-28] MEDS: AMLODIPINE 10 MG TAB PO SCH (08:37)
[2021-06-28] MEDS: APIXABAN 5 MG TABLET PO SCH ×2 (08:38→20:50)
[2021-06-28] MEDS: METOPROLOL TAR 50 MG TAB PO SCH ×2 (08:38→20:51)
[2021-06-28] MEDS: AMIODARONE HCL 200 MG TAB PO SCH (08:39)
[2021-06-28] MEDS: PANTOPRAZOLE 40MG TABLET PO SCH ×2 (08:39→15:46)
[2021-06-28] MEDS: FUROSEMIDE 40 MG/4 ML VIAL IV SCH ×3 (08:39→15:49)
[2021-06-28] MEDS: LIDOCAINE 4% PATCH TOP SCH (08:40)
[2021-06-28] MEDS ORDERED: POTASSIUM CL SA 10 MEQ TAB PO ONE (09:00)
--- NOTE | 2021-06-28 11:19 | RAD REPORT ---
EXAM DESCRIPTION: RAD - Abdomen Single View - 06/28/2021 10:23 am CLINICAL HISTORY: abdominal pain Pain COMPARISON: Renal Ultrasound-Complete dated 06/26/2021; Chest Single View dated 06/25/2021 FINDINGS: Interstitial opacities are present in both lung bases. Cholecystectomy clips. Gaseous distention of the colon and small bowel noted in a nonspecific pattern. No pneumoperitoneum. IMPRESSION: A mild adynamic bowel ileus is likely present. Interstitial prominence in the lung bases could be related to mild pulmonary edema.
[2021-06-28] MEDS: NIFEDIPINE XL 60 MG TABLET PO SCH (11:30)
--- NOTE | 2021-06-28 13:24 | P.PN ---
Subjective Date of Service: 06/28/21 Chief Complaint: CHF exacerbation Subjective: Worsening (Patient is having nausea and abdominal pain. Abdominal x-ray concerning for mild dynamic ileus.) Physical Examination - Vital Signs Temperature: 97.0 F Blood Pressure: 126/71 Pulse: 60 Respirations: 18 Pulse Ox (%): 97 - Physical Exam General: Moderate distress, Obese HEENT: Atraumatic, Normocephalic Cardiovascular: No edema, Regular rate/rhythm, Normal S1 S2 Gastrointestinal: Soft and benign, Non-distended Musculoskeletal: No clubbing, No swelling, No contractures, No erythema Neurological: Normal speech, Normal affect Assessment And Plan - Current Problems (Diagnosis) (1) Acute on chronic diastolic heart failure Current Visit: No Status: Acute (2) Acute renal injury Onset Date: 06/30/17 Current Visit: No Status: Acute (3) Chest pain Onset Date: 05/26/15 Current Visit: No Status: Acute Qualifiers: Chest pain type: unspecified Qualified Code(s): R07.9 - Chest pain, unspecified (4) GERD (gastroesophageal reflux disease) Current Visit: No Status: Acute (5) Pleuritic chest pain Current Visit: No Status: Acute (6) TIA (transient ischemic attack) Onset Date: 06/19/18 Current Visit: No Status: Acute (7) H/O cardiac radiofrequency ablation Current Visit: No Status: Chronic (8) HIV (human immunodeficiency virus infection) Current Visit: No Status: Chronic Qualifiers: (9) Hiatal hernia with GERD Onset Date: 02/26/16 Current Visit: No Status: Chronic (10) Hypertension Onset Date: 05/26/15 Current Visit: No Status: Chronic Qualifiers: Physician Review Additional Text: Assessment Patient is a 66 year old female with obesity, HIV, HTN and CHF. She is being admitted for decompensated CHF after she presented with shortness of breath. She is requiring supplemental O2 at this time. She has a history of COPD and chronic respiratory failure and requires 3 L at home. Is done well with diuresis and was being readied for discharge. Unfortunately, she developed some abdominal discomfort today and nausea/vomiting. Abdominal x-ray showed adynamic ileus. Ileus Acute on chronic diastolic CHF - TTE with preserved LVEF. Mild LVH. Acute on chronic respiratory failure ROHAN HTN Obesity HIV Fall plan: Keep n.p.o. We will obtain CT abdomen and pelvis with p.o. and IV contrast Surgery has been consulted. Dr. Reid will place in tomorrow Monitor renal function closely after her contrast exposure. Nephrology is already following on the pillowcase cutter I/O Wean off O2 Renal function is improving BP control
--- NOTE | 2021-06-28 14:48 | RAD REPORT ---
EXAM DESCRIPTION: CTAbdomen Pelvis W Contrast - 06/28/2021 2:25 pm CLINICAL HISTORY: Abdominal pain. ILEUS. COMPARISON: Abdomen Pelvis W Contrast dated 06/21/2021; Abdomen Pelvis W Contrast dated 02/01/2021 ; Abdomen Pelvis W Contrast dated 07/25/2020; Abdomen Pelvis W Contrast dated 05/26/2020 TECHNIQUE: Biphasic CT imaging of the abdomen and pelvis was performed with 100 ml non-ionic IV cont rast. All CT scans are performed using dose optimization technique as appropriate and may include automated exposure control or mA/KV adjustment according to patient size. FINDINGS: Fibrotic lung bases noted with mild linear atelectasis also present. The liver is normal in size. Cholecystectomy clips. The spleen, pancreas, adrenal glands are normal. Bilateral renal cysts are present without mass or hy dronephrosis. No bowel obstruction, free air, free fluid or abscess. Moderate right inguinal hernia containing The appendix is not identified as a discrete structure, however, no secondary findings of appendicitis ar e identified. No evidence of significant lymphadenopathy. Moderate lumbosacral degenerative changes. IMPRESSION: No acute intra-abdominal or pelvic finding.
--- NOTE | 2021-06-28 15:27 | P.PN ---
Subjective Date of Service: 06/28/21 Chief Complaint: CHF exacerbation Subjective: No new changes, Improving Physical Examination - Vital Signs Temperature: 97.0 F Blood Pressure: 126/71 Pulse: 60 Respirations: 18 Pulse Ox (%): 97 - Physical Exam General: Alert, Oriented x3 HEENT: Atraumatic, Normocephalic Neck: Supple Respiratory: Normal air movement Cardiovascular: Regular rate/rhythm, Normal S1 S2 Gastrointestinal: Soft and benign Neurological: Normal speech, Normal strength at 5/5 x4 extr, Normal tone Assessment And Plan - Plan ROHAN -possible due to cardiorenal sydnrome type II Recurrent Hematuria -presumed HTN-uncontrolled COPD HIV on HAART Atrial Fib -on Eliquis Presumed diastolic CHF Hypokalemia PLAN Cr is stable at 1.24. urine output is better. we will continue with lasix diuresis - will continue to follow BMP daily we will follow I/O closely. Physician Review Additional Text: Assessment Patient is a 66 year old female with obesity, HIV, HTN and CHF. She is being admitted for decompensated CHF after she presented with shortness of breath. She is requiring supplemental O2 at this time. She has a history of COPD and chronic respiratory failure and requires 3 L at home. Is done well with diuresis and was being readied for discharge. Unfortunately, she developed some abdominal discomfort today and nausea/vomiting. Abdominal x-ray showed adynamic ileus. Ileus Acute on chronic diastolic CHF - TTE with preserved LVEF. Mild LVH. Acute on chronic respiratory failure ROHAN HTN Obesity HIV Fall plan: Keep n.p.o. We will obtain CT abdomen and pelvis with p.o. and IV contrast Surgery has been consulted. Dr. Reid will place in tomorrow Monitor renal function closely after her contrast exposure. Nephrology is already following on the rn case manager I/O Wean off O2 Renal function is improving BP control
[2021-06-28] MEDS: HYDROCODONE/APAP 7.5/325 MG TAB PO PRN (20:49)
[2021-06-28] MEDS: ATORVASTATIN 40 MG TAB PO SCH (20:51)
[2021-06-29] MEDS: ONDANSETRON 4 MG/2 ML VIAL IV PRN ×4 (02:41→18:11)
--- NOTE | 2021-06-29 05:48 | P.PN ---
Subjective Date of Service: 06/29/21 Chief Complaint: CHF exacerbation Subjective: No new changes, Improving Physical Examination - Vital Signs Temperature: 97.1 F Blood Pressure: 161/74 Pulse: 60 Respirations: 16 Pulse Ox (%): 91 - Physical Exam General: Alert, Oriented x3 HEENT: Atraumatic, Normocephalic Neck: Supple Respiratory: Normal air movement Cardiovascular: Regular rate/rhythm, Normal S1 S2 Gastrointestinal: Soft and benign Neurological: Normal speech, Normal strength at 5/5 x4 extr, Sensation intact Assessment And Plan - Plan ROHAN -possible due to cardiorenal syndrome type II, resolved. Recurrent Hematuria -presumed HTN-uncontrolled COPD HIV on HAART Atrial Fib -on Eliquis Presumed diastolic CHF Hypokalemia-replete PLAN Cr is stable at 1.24. urine output is better. we will continue with lasix diuresis and switch dose to PO lasix at 40mg BID. will continue to follow BMP daily while admitted. we will follow I/O closely. Physician Review Additional Text: Assessment Patient is a 66 year old female with obesity, HIV, HTN and CHF. She is being admitted for decompensated CHF after she presented with shortness of breath. She is requiring supplemental O2 at this time. She has a history of COPD and chronic respiratory failure and requires 3 L at home. Is done well with diuresis and was being readied for discharge. Unfortunately, she developed some abdominal discomfort today and nausea/vomiting. Abdominal x-ray showed adynamic ileus. Ileus Acute on chronic diastolic CHF - TTE with preserved LVEF. Mild LVH. Acute on chronic respiratory failure ROHAN HTN Obesity HIV Fall plan: Keep n.p.o. We will obtain CT abdomen and pelvis with p.o. and IV contrast Surgery has been consulted. Dr. Reid will place in tomorrow Monitor renal function closely after her contrast exposure. Nephrology is already following on the case management rn I/O Wean off O2 Renal function is improving BP control
[2021-06-29 06:35] LABS: Albumin 2.7 g/dL (3.4-5.0); Bilirubin Total 0.4 mg/dL (0.2-1.0); Potassium 3.3 mmol/L (3.5-5.1); Protein, Total 6.7 g/dL (6.4-8.2)
[2021-06-29] MEDS: HYDROCODONE/APAP 7.5/325 MG TAB PO PRN (08:43)
[2021-06-29] MEDS: BUSPIRONE HCL 15 MG TABLET PO SCH ×2 (08:49→21:30)
[2021-06-29] MEDS: METOPROLOL TAR 50 MG TAB PO SCH ×2 (08:49→21:28)
[2021-06-29] MEDS: HYDRALAZINE HCL 25 MG TABLET PO SCH ×3 (08:50→21:27)
[2021-06-29] MEDS: PANTOPRAZOLE 40MG TABLET PO SCH ×2 (08:50→18:11)
[2021-06-29] MEDS: NIFEDIPINE XL 60 MG TABLET PO SCH (08:50)
[2021-06-29] MEDS: BUPROPION HCL XL 150 MG TAB PO SCH (08:50)
[2021-06-29] MEDS: SERTRALINE HCL 100 MG TAB PO SCH (08:50)
[2021-06-29] MEDS: APIXABAN 5 MG TABLET PO SCH ×2 (08:50→21:28)
[2021-06-29] MEDS: FUROSEMIDE 40 MG TABLET PO SCH ×2 (08:51→17:00)
[2021-06-29] MEDS: AMIODARONE HCL 200 MG TAB PO SCH (08:51)
[2021-06-29] MEDS: TENOFOV ALAFENAM PO SCH (08:52)
[2021-06-29] MEDS: FERROUS SULFATE 325 MG TAB PO SCH (08:52)
[2021-06-29] MEDS: EMTRICITABINE PO SCH (08:52)
[2021-06-29] MEDS: RALTEGRAVIR POTASSIUM 400 MG PO SCH ×2 (08:52→21:00)
[2021-06-29] MEDS: LIDOCAINE 4% PATCH TOP SCH (08:52)
--- NOTE | 2021-06-29 09:19 | RAD REPORT ---
EXAM DESCRIPTION: RAD - Abdomen Single View - 06/29/2021 6:24 am CLINICAL HISTORY: f/u ileus Pain COMPARISON: Abdomen Pelvis W Contrast dated 06/28/2021 FINDINGS: The bowel gas pattern is non-obstructive. No evidence of free air or pneumatosis. No suspi cious calcifications. No significant bony findings. Cholecystectomy. Moderate stool throughout the colon. IMPRESSION: Moderate stool throughout the colon.
--- NOTE | 2021-06-29 11:07 | CON ---
Date of Consultation: 06/28/2021 Reason For Consultation: Abdominal pain. History Of Present Illness: The patient is a 66-year-old female with multiple medical problems, came in with CHF exacerbation, was complaining abdominal pain yesterday and x-ray was ordered which showe d some mild adynamic ileus and I was consulted Dr. Goodman at that time and we ordered a CT of the ab domen and pelvis that was negative. Today, she states that she is feeling a little better. No vomit ing. Nausea is better. No diarrhea or constipation. No blood in her stool. She is passing gas. N o dysuria or hematuria. No sore throat, runny nose, cough, headaches, or dizziness. No chest pain. Review of Systems: Otherwise unremarkable. Past Medical History: Significant for HIV, coronary artery disease, bipolar disorder, hypertension, COPD, history of alcohol abuse, hyperlipidemia, AFib, chronic diastolic CHF. Past Surgical History: Appendectomy, cholecystectomy, shoulder surgery, foot surgery, hiatal hernia surgery last year, and right wrist surgery. Allergies: REVIEWED, MULTIPLE; FENTANYL, METOCLOPRAMIDE, SULFA, BACTRIM, STADOL. Social History: The patient currently does not smoke or drink alcohol. Family History: Noncontributory. Physical Examination: Vital Signs: Stable. She is afebrile. General: She is awake, alert, and oriented x3. Head and Neck: No masses. Chest: Clear. Heart: S1 and S2. Abdomen: Soft, nondistended, nontender. Positive bowel sounds. Extremities: Neurovascularly intact. Neuro: Nonfocal. Laboratory Data: CT of the abdomen and pelvis reviewed and is unremarkable. Abdominal x-ray reviewe d. The ileus pattern has improved. Assessment: Abdominal pain, etiology unclear, probably needs an outpatient GI workup. Recommendations: Begin the patient on clear liquids if tolerated and if medically stable, the patien t can be discharged. Follow up with GI as an outpatient. We do not have GI Service available for in patient right now. /MODL Voice ID: [id number] Report ID: [id number]
[2021-06-29 11:35] LABS: Magnesium 1.8
[2021-06-29] MEDS ORDERED: PROMETHAZINE 25 MG/SUPP PR PRN (13:54)
[2021-06-29] MEDS ORDERED: METHYLPREDNISOLONE 40 MG INJ IV ONE (13:54)
[2021-06-29] MEDS ORDERED: LOPERAMIDE HCL 2 MG CAPSULE PO STA (13:54)
[2021-06-29] MEDS: PROMETHAZINE 25 MG TABLET PO PRN ×2 (15:00→21:36)
[2021-06-29] MEDS: METHYLPREDNISOLONE 40 MG INJ IV SCH (18:11)
[2021-06-29] MEDS ORDERED: POTASSIUM 25 MEQ EFFERV TAB PO ONE (21:00)
[2021-06-29] MEDS: ATORVASTATIN 40 MG TAB PO SCH (21:28)
[2021-06-30] MEDS: METHYLPREDNISOLONE 40 MG INJ IV SCH ×2 (00:28→09:58)
[2021-06-30 06:39] LABS: Albumin 2.9 g/dL (3.4-5.0); Bilirubin Total 0.3 mg/dL (0.2-1.0); Protein, Total 7.1 g/dL (6.4-8.2)
[2021-06-30 06:48] LABS: Potassium 4.6 mmol/L (3.5-5.1)
[2021-06-30] MEDS: PROMETHAZINE 25 MG TABLET PO PRN (08:11)
[2021-06-30 08:52] VITALS: O2SAT 98
[2021-06-30] MEDS: FERROUS SULFATE 325 MG TAB PO SCH (09:00)
[2021-06-30] MEDS: LIDOCAINE 4% PATCH TOP SCH (09:00)
[2021-06-30] MEDS: RALTEGRAVIR POTASSIUM 400 MG PO SCH (09:52)
[2021-06-30] MEDS: EMTRICITABINE PO SCH (09:53)
[2021-06-30] MEDS: TENOFOV ALAFENAM PO SCH (09:53)
[2021-06-30] MEDS: BUSPIRONE HCL 15 MG TABLET PO SCH (09:54)
[2021-06-30] MEDS: METOPROLOL TAR 50 MG TAB PO SCH (09:55)
[2021-06-30] MEDS: BUPROPION HCL XL 150 MG TAB PO SCH (09:55)
[2021-06-30] MEDS: SERTRALINE HCL 100 MG TAB PO SCH (09:56)
[2021-06-30] MEDS: FUROSEMIDE 40 MG TABLET PO SCH (09:56)
[2021-06-30] MEDS: HYDRALAZINE HCL 25 MG TABLET PO SCH ×2 (09:56→13:31)
[2021-06-30] MEDS: PANTOPRAZOLE 40MG TABLET PO SCH (09:56)
[2021-06-30] MEDS: APIXABAN 5 MG TABLET PO SCH (09:57)
[2021-06-30] MEDS: AMIODARONE HCL 200 MG TAB PO SCH (09:57)
[2021-06-30] MEDS: NIFEDIPINE XL 60 MG TABLET PO SCH (10:02)
[2021-06-30 12:53] LABS: C.diff Antigen/Toxin Ag neg : Tox neg (NEG : NEG)
[2021-06-30 13:55] VITALS: BP 151/91; TEMP 97.4
[2021-06-30] MEDS: ONDANSETRON 4 MG/2 ML VIAL IV PRN (15:13)
== END 2021-06-30 15:24 | disposition home or self-care (01) | DRG 291 ==
LOC: ER 12:44 → ERHOLD 15:09 → 2ND 15:41
PROVIDERS: ADMIT Internal Medicine; ATTEND Internal Medicine
DX: I11.0 Hypertensive heart disease with heart failure (principal); I50.33 Acute on chronic diastolic (congestive) heart failure; J96.21 Acute and chronic respiratory failure with hypoxia; N17.9 Acute kidney failure, unspecified; K56.0 Paralytic ileus; Q61.3 Polycystic kidney, unspecified; J44.9 Chronic obstructive pulmonary disease, unspecified; Z21 Asymptomatic human immunodeficiency virus [HIV] infection status; E66.9 Obesity, unspecified; Z68.36 Body mass index [BMI] 36.0-36.9, adult; I48.91 Unspecified atrial fibrillation; E87.6 Hypokalemia; K21.9 Gastro-esophageal reflux disease without esophagitis; I25.10 Atherosclerotic heart disease of native coronary artery without angina pectoris; Z99.81 Dependence on supplemental oxygen; Z79.01 Long term (current) use of anticoagulants; Z20.822 Contact with and (suspected) exposure to COVID-19
CPT/HCPCS: 36415; 70450; 71045; 74018; 74177; 76770; 80048; 80053; 80061; 80076; 82043; 82570; 83605; 83735; 83880; 84100; 84300; 84439; 84443; 84484; 85025; 85610; 87324; 87449; 93005; 93306; 94640; 94760; 96374; 99285; J0360; J1940; J2270; J2405; J2920; Q0169; Q9967; U0003

== ENCOUNTER 2021-07-23 11:49 | Emergency (ER) | payer OTHER ==
--- OUTSIDE RECORDS SUMMARY | 2021-07-23 11:58 | XMS REPORT | Continuity of Care Document ---
:1955 Author Organization [facility] t Address [address] [place] [address] Care Team Providers Name Role Phone Francisco Ramhan Primary Care Physician Ashely Attending Clinician Unavailable JENNY Attending Clinician Unavailable RONALD Attending Clinician Unavailable Ap JENKINS Attending Clinician Doctor Unassigned, Name Attending Clinician Unavailable Ronald DHILLON Attending Clinician Prabhu SANCHEZ Attending Clinician Unavailable Luisana Maharaj NP Attending Clinician Yazmin JENKINS Attending Clinician [facility] Attending Clinician Unavailable Devin HUITRONP, R Attending Clinician Clark SANCHEZ Attending Clinician [...] Clinician Unavailable DO SYL Attending Clinician Unavailable Kristen Rahman Admitting Clinician Unavailable Ashely Admitting Clinician Unavailable YAZMIN Admitting Clinician Unavailable DO SYL Admitting Clinician Unavailable Payers Payer Name Policy Type Policy Number Effective Date Expiration Date S gabino [facility] COMMUNITY PLAN [id number] 2012 [employer] 00:00:00 [facility] DUAL [id number] 2020 COMP HMO D SNP 00:00:00 MEDICAID OF [place] [id number] 2020 00:00:00 Problems Condition Condition Condition Status Onset Resolution Last Treating Co mments Source Name Details Category Date Date Treatment Clinician Date Gastropare Gastropare Disease Active Overview : Methodi sis sis 4-[address] 00:00: [facility] note l might be different from the original. Added automatic ally from request for surgery [id number] Dysphagia Dysphagia Disease Active Overview: Methodi 4-[address] 00:00: [facility] 00 note l might be different from the original. Added automatic ally from request for surgery [id number] CCL / EPS Diagnosis Active 2020-10-15 Memoria PVI 3-30 17:07:00 l ABLATION CCL / 00:00: Roff W/ CARTO / EPS PVI 00 GA / T ABLATION W/ CARTO / GA / T Active 08/19/2020 [facility] Food Food Disease Active 2019-05 [...] (BMI 2-19 ity of 30-39.9) 30-39.9) 00:00: [place] [facility] Anemia Anemia Disease Active 2014-05 Univers 0-03 ity of 00:00: [place] [facility] Hypovolemi Hypovolemi Disease Active 2014-05 U nivers a due to a due to 0-02 ity of hemorrhage hemorrhage 00:[place] [facility] Chest pain Chest pain Disease Active 2014-05 U nivers 0-02 ity of 00:00: [place] [facility] 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:00: [place] shoulder [...] SV N/V [facility] hoxazole 1-25 Clear 00:00: [address] trimetho DA Active SV [facility] prim 1-25 Clear 00:00: Garcia 00 [facility] codeine DA Active SV N/V [facility] 1-25 Clear 00:00: Garcia [facility] Metoclop Propensi Active UT ramide ty to 12-12 Health adverse 00:00: reaction 00 s BUTORPHA DRUG Active Unknown-Cmnt Un matt NOL INGREDI 11-25 ity of 00:00: [place] 00 [facility] Branch Butorpha Drug Active Unknown - [...] 00 Medical Branch Trimetho Propensi Active Hives 2018-0 Univer s prim ty to 2-08 ity [...] DRUG Active Unknown-Cmnt Un matt RAMIDE INGREDI - ity of 00:00: [place] 00 [facility] Branch [...] to Branch drug Butorpha Allergy Active Hallucinatio 0 Other U T nol to ns 2-14 reaction( Health substanc 00:00: s): e 00 confusion , Hallucina tions, Hallucina tions, Hallucina tions, Unknown - See comments Bactrim Bactrim Active Get [place] Family History Family Member Diagnosis Comments Start Date Stop Date Source Natural father Diabetes [facility] Natural father Other - see comments [facility] Natural [facility] Natural father Hypertension [facility] Natural father Kidney disease [facility] Natural mother Cancer [facility] Social History Social Habit Start Date Stop Date Quantity Comments Source History SDOH [facility] Alcohol Comment History SDOH [facility] Alcohol Std Drinks Exposure to Not sure [facility] SARS-CoV-2 (event) [facility] Alcohol Binge History of tobacco Smoker [facility] use Hospital Alcohol intake 2021-07-14 2021-07-14 Ex-drinker [facility] 00:00:00 00:00:00 (finding) Cigarettes smoked 2020-12-08 2020-12-[address] current (pack per 00:00:00 00:00:00 Hospita l day) - Reported Cigarette 2020-12-08 2020-12-08 [facility] pack-[facility] 00:00:00 00:00:00 Hospital Tobacco use and 2020-10-31 2020-10-31 Smokeless tobacco [facility] exposure 00:00:00 00:00:00 non-user History SDUT 2020-10-31 2020-10-31 1 [facility] Alcohol Frequency 00:00:00 00:00:00 Tobacco Comment 2015-02-14 2015-02-14 Smokes approx 1-2 Un iversity of 00:00:00 00:00:00 cigarettes per [facility] porfirio day when she Branch smokes Sex [birth year] [facility] 00:00:00 00:00:00 Smoking Status Start Date Stop Date Source Former smoker 2020-12-08 00:00:00 2020-12-08 00:00:00 [facility] Medications Ordered Filled Start Stop Current Ordering Indication Dosage Frequency Signature Comments Components Source Medication Medication Date Date Medication? Clinician (SIG) Name Name raltegravir Yes 400mg Q.5D Take 400 U T (Isentress) 2-22 mg by Health 400 MG 09:09: mouth 2 tablet 52 (two) times a day. LORazepam 1 Yes [id number] 1mg Take 1 Univers mg tablet 2-21 tablet by ity o f 00:00: mouth 3 [place] 00 (three) Medical times Branch daily as needed (anxiety). furosemide Yes 40mg Q.5D Take 40 mg U T (Lasix) 40 2-08 by mouth 2 Hea lth MG tablet 00:00: (two) 00 times a day. promethazin Yes 25mg Q.5D Take 25 mg UT e 2-08 by mouth 2 Health (Phenergan) 00:00: (two) 25 MG 00 times a tablet day. buPROPion Yes [id number] 150mg Take 1 U nivers XL 1-24 tablet by ity of (WELLBUTRIN 00:00: mouth [place] XL) 150 mg 00 daily. Medical 24 hr Branch tablet busPIRone Yes [id number] 30mg Take 1 Un matt 30 mg 1-24 tablet by ity of tablet 00:00: mouth 2 [place] 00 (two) Medical times Branch daily. SERTraline Yes [id number] 200mg Take 2 Univers 100 mg 1-24 tablets by ity of tablet 00:00: mouth [place] 00 daily. Medical Branch LORazepam 1 2021- No [id number] 1mg Take 1 Univers mg tablet 06-15- tablet by ity of 00:00: 00:00 mouth 3 [place] 00 :00 (three) Medical times Branch daily as needed (anxiety). emtricitabi Yes [id number] Take one Univers ne-tenofovi 1-20 po daily ity of r alafen 00:00: [place] (DESCOVY) 00 Medical tablet Branch raltegravir Yes [id number] 400mg Take 1 Univers (ISENTRESS) 1-12 tablet by ity of 400 mg 00:00: mouth 2 [place] tablet 00 (two) Medical times Branch daily. LORazepam 1 2021- No [id number] 1mg Take 1 Univers mg tablet 05-25-24 tablet by ity of 00:00: 00:00 mouth 3 [place] 00 :00 (three) Medical times Branch daily as needed (anxiety) for up to 21 days. SERTraline 2020-05- No [id number] 200mg Take 2 Univers 100 mg -12 06-24 tablets by ity of tablet 00:00: 00:00 mouth [place] 00 :00 daily. Medical Branch busPIRone 2020-05- No [id number] 30mg Take 1 U nivers 30 mg -12 06-24 tablet by ity of tablet 00:00: 00:00 mouth 2 [place] 00 :00 (two) Medical times Branch daily. buPROPion 2020-05- No [id number] 150mg Take 1 Univers XL -12 06-24 tablet by ity of (WELLBUTRIN 00:00: [place] XL[place] 150 mg 00 :00 daily. Medical 24 hr Branch tablet metoprolol 2020-0 Yes [id number] Take 1 UT tartrate 7-26 tablet Health (Lopressor) 00:00: (100 mg 100 MG 00 total) by tablet mouth 2 (two) times a day AND 0.5 tablets (50 mg total) every night. metoprolol 0 Yes [id number] Take 1 UT tartrate 7-26 tablet Health (Lopressor) 00:00: (100 mg 100 MG 00 total) by tablet mouth 2 (two) times [...] area in groin) hydrALAZINE 0 Yes 50mg Q.[id number] Take 50 mg Methodi (APRESOLINE 7-[id number] ) 50 MG [...] Hospita tablet 25 daily. l nystatin-tr Yes [id number] Apply to [facility] 11-25 area(s) 3 ity of cream 00:00: (three) [place] 00 times Medical daily. Branch budesonide- 2020- No 1{puff} QD Inhale 1 Methodi formoteroL 6-25 06-[address] (SYMBICORT) 19:37: 00:00 morning. H ospita 160-4.5 02 :00 l mcg/actuati on inhaler hydrALAZINE Yes [id number] 50mg Q.[id number] Take 1 UT (Apresoline 6-11 [id number] tablet ( Health ) 50 MG 00:00: 3D mg total) tablet 00 by mouth 3 (three) times a day. hydrALAZINE Yes [id number] 50mg Q.[id number] Take 1 UT (Apresoline 10-31 [id number] tablet (50 Health ) 50 MG 00:00: 3D mg total) tablet 00 by mouth 3 (three) times a day. Breztri 0 Yes UT Aerosphere 09 Health 160-9-4.8 00:00: MCG/ACT 00 aerosol Breztri 0 Yes UT Aerosphere 10-29 Health 160-9-4.8 00:00: MCG/ACT 00 aerosol albuterol 0 Yes UT (2.5 6-02 Health MG/3ML) 00:00: 0.083% 00 nebulizer solution albuterol 2021- No UT (2.5 6-02 02-22 Health MG/3ML) 00:00: 00:00 0.083% 00 :00 nebulizer solution lisinopril 0 Yes UT 40 MG 5-30 Health tablet 00:00: 00 sertraline 0 Yes 200mg 200 mg. UT (Zoloft) 5-30 Health 100 MG 00:00: tablet 00 lisinopril 0 Yes UT 40 MG 5-30 Health tablet 00:00: 00 sertraline 0 2021- No 200mg 200 mg. UT (Zoloft) 5-30 02-22 Health 100 MG 00:00: 00:00 tablet 00 :00 mupirocin 0 Yes UT (Bactroban) 5-28 Health 2 % 00:00: ointment 00 mupirocin 0 Yes UT (Bactroban) 5-28 Health 2 % 00:00: ointment 00 nystatin 2020- No [id number] Q.25D Take 5 mL Methodi (MYCOSTATIN 10-06 [...] Health 00:00: 00 Eliquis 5 2020-0 Yes 5mg Q.5D Take 5 mg UT MG tablet 5-05 by mouth 2 Heal th 00:00: (two) 00 times a day. pantoprazol 2020-0 Yes UT e 4-20 Health [...] a day for 30 days. esomeprazol 2020-0 2020- No 40mg Q.5D Take 40 mg [...] ia 4-10 (Same as: l 14:00: Cordarone) Roff 00 Amlodipine No Notes: Memor ia 4-10 (Same as: l 14:00: Norvasc) Marty emtricitabi No Notes: Caesar lisa ne 200 MG / 4-10 (Same as: l tenofovir 14:00: Descovy) Herm ariel alafenamide 00 Non-formul 25 MG Oral nancy Tablet [Descovy] Sertraline No Notes: Memor ia 4-10 (Same as: l 14:00: Zoloft) Roff 00 Sertraline No Notes: Memor ia 4-10 (Same as: l 14:00: Zoloft) Marty 00 pantoprazol No Notes: Caesar lisa e 4-10 Tablet l 14:00: should not Marty 00 be chewed or crushed. (Same as: Protonix) Amiodarone No Notes: Memor ia 4-10 (Same as: l 14:00: Cordarone) Amlodipine No Notes: Memor ia 4-10 (Same as: l 14:00: Norvasc) Roff 00 emtricitabi No Notes: Caesar lisa ne [...] e 4-10 Tablet l 14:00: should not Roff 00 be chewed or crushed. (Same as: [...] ia 4-10 (Same as: l 14:00: Zoloft) Roff 00 pantoprazol No Notes: Caesar lisa e 4-10 Tablet l 14:00: should not Roff 00 be chewed or crushed. (Same as: [...] ia 4-10 (Same as: l 14:00: Cordarone) Roff 00 Amlodipine No Notes: Memor ia 4-10 [...] e 4-10 Tablet l 14:00: should not Roff 00 be chewed or crushed. (Same as: [...] Memoria 4-10 Same as: l 02:00: Eliquis Roff Hydralazine No Notes: Caesar lisa Hydrochlori 4-10 [...] 0.9% 4-10 (Same as: l 02:00: BD Roff 00 Posiflush) Eliquis No Notes: Memoria 4-10 Same as: l 02:00: Eliquis Marty Hydralazine No Notes: Caesar lisa Hydrochlori 4-10 (Same as: l de 50 MG 02:00: Apresoline Her mitchell Oral Tablet 00 ) May interfere w/enteral feedings Take With Food Sucralfate No Notes: May M emoria 4-10 interfere l 02:00: w/enteral Roff 00 feeds - Take 1 hr before or 2 hr after antacids, dairy pdt, meals & minerals - On empty stomach. For patients unable to swallow tablet, dissolve in 10mL - 30mL of water or juice and stir before giving. (Same As: Carafate) Saline No Notes: Memoria Flush 0.9% 4-10 (Same as: l 02:00: BD Roff Posiflush) Eliquis No Notes: Memoria 4-10 Same as: l 02:00: Eliquis Roff Hydralazine No Notes: Caesar ilsa Hydrochlori 4-10 (Same as: l de 50 [...] Memoria 4-10 Same as: l 02:00: Eliquis Roff 00 Hydralazine No Notes: Caesar lisa Hydrochlori [...] M emoria 4-10 interfere l 02:00: w/enteral Roff 00 feeds - Take 1 hr before or 2 hr after antacids, dairy pdt, meals & minerals - On empty stomach. For patients unable to swallow tablet, dissolve in 10mL - 30mL of water or juice and stir before giving. (Same As: Carafate) Saline No Notes: Memoria Flush 0.9% 4-10 (Same as: l 02:00: BD Roff Posiflush) Eliquis No Notes: Memoria 4-10 Same as: l 02:00: Eliquis Roff 00 Hydralazine No Notes: Caesar lisa Hydrochlori [...] not exceed l #3 00:12: 4gm/day of Roff acetaminop hen. (Same as: Tylenol with Codeine # 3) acetaminoph No Notes: Do M emoria en-codeine 4-10 not exceed l #3 00:12: 4gm/day of Roff acetaminop hen. (Same as: Tylenol with Codeine # 3) acetaminoph No Notes: Do M emoria en-codeine 4-10 not exceed l #3 00:12: 4gm/day of Roff acetaminop hen. (Same as: Tylenol with Codeine [...] oria 4- tab, l 22:00: Route: PO, Drug form: [...] oria 4-09 tab, l 22:00: Route: PO, Roff 00 Drug form: TAB, BID, Dosing Weight [...] tartrate 4-09 tab, l 22:00: Route: PO, Roff Drug form: TAB, BID, Dosing Weight 97.273, [...] oria 4-09 tab, l 22:00: Route: PO, Roff 00 Drug form: TAB, BID, Dosing Weight 97.273, kg, Start date: 08/29/20 17:00:00 CDT, Duration: 30 day, Stop date: 09/28/20 9:00:00 CDT metoprolol 2021-0 No 100 mg, 1 Me moria tartrate 4-09 tab, l 22:00: Route: PO, Roff 00 Drug form: TAB, BID, Dosing Weight [...] oria 4- tab, l 22:00: Route: PO, Roff Drug form: TAB, BID, Dosing Weight 97.273, kg, Start date: 08/29/20 17:00:00 CDT, Duration: 30 day, Stop date: 09/28/20 9:00:00 CDT metoprolol 1-0 No 100 mg, 1 Me moria tartrate 4-09 tab, l 22:00: Route: PO, Roff 00 Drug form: TAB, BID, Dosing Weight 97.273, kg, Start date: 08/29/20 17:00:00 CDT, Duration: 30 day, Stop date: 09/28/20 9:00:00 CDT Raltegravir 2020-0 No 400 mg, 1 M emoria 400 MG Oral 4- tab, l Tablet 22:00: Route: PO, [facility]ylar [facility] 00 Drug form: TAB, BID, Dosing Weight 97.273, kg, Start date: 08/29/20 17:00:00 CDT, Duration: 30 day, Stop date: 09/28/20 9:00:00 CDT, 0 Buspirone 2020-0 No Notes: Memori a 08-29 (Same As: l 22:00: BuSpar) Lisinopril 2020-0 No 40 mg, 1 Mem oria - tab, l 22:00: Route: PO, Roff 00 Drug form: TAB, BID, Dosing Weight [...] Notes: Memoria 4-09 (Same l 17:07: as:MORPhin Roff 00 e Sulfate) Morphine No Notes: Memoria 4-09 (Same l 17:07: as:MORPhin Marty 00 e Sulfate) Morphine No Notes: Memoria 4-09 (Same l 17:07: as:MORPhin Marty 00 e Sulfate) Morphine No Notes: Memoria 4-09 (Same l 17:07: as:MORPhin Roff 00 e Sulfate) Morphine 2020-0 No Notes: Memoria 4- (Same l 17:07: as:MORPhin Marty 00 e Sulfate) Morphine 2020-0 No Notes: Memoria 4- (Same l 17:07: as:MORPhin Marty 00 e Sulfate) Morphine 2020-0 No Notes: Memoria 4- (Same l 17:07: as:MORPhin Roff 00 e Sulfate) buPROPion 1-0 No 150 [...] 0 coated Refill(s), tablet [place] [facility] [place] [facility], cm, 08/29/20 5:30:00 CDT, Height, 97.273, kg, 08/29/20 5:30:00 CDT, Weight pantoprazol 2020-0 Yes 40 mg = 1 M emoria e 40 mg 4-09 tab, PO, l oral 15:27: Daily, # Roff enteric 00 30 tab, 0 coated Refill(s), tablet [place] [facility], 162.56, cm, 08/29/20 5:30:00 CDT, Height, 97.273, kg, 08/29/20 5:30:00 CDT, Weight pantoprazol 2020-0 Yes 40 mg = 1 M emoria e 40 mg 4-09 tab, PO, l oral 15:27: Daily, # Marty enteric 00 30 tab, 0 coated Refill(s), tablet [place] [facility], 162.56, cm, 08/29/20 5:30:00 CDT, Height, 97.273, kg, 08/29/20 5:30:00 CDT, Weight pantoprazol 2020-0 Yes 40 mg = 1 M emoria e 40 mg 4-09 tab, PO, l oral 15:27: Daily, # Roff enteric 00 30 tab, 0 coated Refill(s), tablet Pharmacy: [facility], 162.56, cm, 08/29/20 5:30:00 CDT, Height, 97.273, kg, 08/29/20 5:30:00 CDT, Weight pantoprazol 1-0 Yes 40 mg = 1 M emoria e 40 mg 4-09 tab, PO, l oral 15:27: Daily, # Marty enteric 00 30 tab, 0 coated Refill(s), tablet Pharmacy: [facility], 162.56, cm, 08/29/20 5:30:00 CDT, Height, 97.273, kg, 08/29/20 5:30:00 CDT, Weight pantoprazol 2020-0 Yes 40 mg = 1 M emoria e 40 mg 4-09 tab, PO, l oral 15:27: Daily, # Roff enteric 00 30 tab, 0 coated Refill(s), tablet Pharmacy: [facility], 162.56, cm, 08/29/20 5:30:00 CDT, Height, 97.273, kg, 08/29/20 5:30:00 CDT, Weight pantoprazol 1-0 Yes 40 mg = 1 M emoria e 40 mg 4-09 tab, PO, l oral 15:27: Daily, # Marty enteric 00 30 tab, 0 coated Refill(s), tablet Pharmacy: [facility], 162.56, cm, 08/29/20 5:30:00 CDT, [...] Skylar nn 00 tab, 0 Refill(s), Pharmacy: [facility], 162.56, cm, 08/29/20 5:30:00 CDT, Height, 97.273, kg, 08/29/20 5:30:00 CDT, Weight pantoprazol 2020-0 No 40 mg = 1 M emoria e 40 mg 4-09 tab, PO, l oral 15:26: Daily, # Roff enteric 00 30 tab, 0 coated Refill(s) tablet sucralfate 2020-0 Yes 1 gm = 1 Mem oria 1 g oral 4-09 tab, PO, l tablet 15:26: Q12H, # 28 Skylar nn 00 tab, 0 Refill(s), Pharmacy: [place] [address], 162.56, cm, 08/29/20 5:30:00 CDT, Height, 97.273, kg, 08/29/20 5:30:00 CDT, Weight pantoprazol 2020-0 No 40 mg = 1 M emoria e 40 mg 4-09 tab, PO, l oral 15:26: Daily, # Roff enteric 00 30 tab, 0 coated Refill(s) tablet sucralfate 2020-0 Yes 1 gm = 1 Mem oria 1 g oral 4-09 tab, PO, l tablet 15:26: Q12H, # 28 Skylar nn 00 tab, 0 Refill(s), Pharmacy: [place] [address], 162.56, cm, 08/29/20 5:30:00 CDT, Height, 97.273, [...] 00 tab, 0 Refill(s), [place] [facility], 162.56, cm, 08/29/20 5:30:00 CDT, Height, [...] 00 tab, 0 Refill(s), [place] [facility], 162.56, cm, 08/29/20 5:30:00 CDT, Height, [...] 00 tab, 0 Refill(s), [place] [facility], 162.56, cm, 08/29/20 5:30:00 CDT, Height, 97.273, kg, 08/29/20 5:30:00 CDT, Weight pantoprazol No 40 mg = 1 M emoria e 40 mg 4-09 tab, PO, l oral 15:26: Daily, # Roff enteric 00 30 tab, 0 coated Refill(s) tablet sucralfate Yes 1 gm = 1 Mem oria 1 g oral 4-09 tab, PO, l tablet 15:26: Q12H, # 28 Skylar nn 00 tab, 0 Refill(s), [place] [facility], 162.56, cm, 08/29/20 5:30:00 CDT, Height, 97.273, kg, 08/29/20 5:30:00 CDT, Weight Saline No Notes: Memoria Flush 0.9% - (Same as: l 15:25: BD Marty 00 Posiflush) Lorazepam No Notes: Memori a 4- (Same as: l 15:25: Ativan) Roff Saline No Notes: Memoria Flush 0.9% 4-09 (Same as: l 15:25: BD Marty Posiflush) Lorazepam No Notes: Memori a 4-09 (Same as: l 15:25: Ativan) Marty 00 Saline No Notes: Memoria Flush 0.9% 4-09 (Same as: l 15:25: BD Marty 00 Posiflush) Saline No Notes: Memoria Flush 0.9% 4-09 (Same as: l 15:25: BD Roff 00 Posiflush) Lorazepam No Notes: Memori a 4-09 (Same as: l 15:25: Ativan) Lorazepam No Notes: Memori a 4-09 (Same as: l 15:25: Ativan) Saline No Notes: Memoria Flush 0.9% 4-09 (Same as: l 15:25: BD Roff 00 Posiflush) Lorazepam No Notes: Memori a 4-09 (Same as: l 15:25: Ativan) Saline No Notes: Memoria Flush 0.9% 4-09 (Same as: l 15:25: BD Marty 00 Posiflush) Lorazepam No Notes: Memori a 4-09 (Same as: l 15:25: Ativan) Saline No Notes: Memoria Flush 0.9% 4-09 (Same as: l 15:25: BD Roff Posiflush) Lorazepam No Notes: Memori a 4-09 (Same as: l 15:25: Ativan) Isuprel HCl No Route: IV, Memoria (ANES) 0.2 4-09 Drug form: l mg + 15:00: INJ, Roff 00 Dosing Weight 97.3, kg, Start date: 08/29/20 10:00:00 CDT, Stop date: 08/29/20 11:00:00 CDT Isuprel HCl No Route: IV, Memoria (ANES) 0.2 4-09 Drug form: l mg + 15:00: INJ, Marty Dosing Weight 97.3, kg, Start date: 08/29/20 10:00:00 CDT, Stop date: 08/29/20 11:00:00 CDT Isuprel HCl 0 No Route: IV, Memoria (ANES) 0.2 08-29 Drug form: l mg + 15:00: INJ, Roff Dosing Weight 97.3, kg, Start date: 08/29/20 [...] Drug form: l mg + 15:00: INJ, Roff 00 Dosing Weight 97.3, kg, Start date: [...] ONCE, Stop date: 08/29/20 9:18:00 CDT Labetalol 2021-0 No 10 mg, Memori a 08-29 Route: l 14:01: IVP, Marty 00 Q5Min, Dosing Weight 97.273, kg, PRN Elevated BP, Start date: 08/29/20 9:01:00 CDT, Duration: 5 doses or times, Stop date: Limited # of times Acetaminoph 2021-0 No 1,000 mg, M emoria en 08-29 Route: PO, l 14:01: Drug form: Roff 00 TAB, ONCE, Dosing Weight 97.273, kg, [...] ia 08-29 Route: l 14:01: IVP, ONCE, Roff 00 Dosing Weight 97.273, kg, PRN Nausea [...] lisa 08-29 Route: l 14:01: IVP, PRN, Roff 00 Dosing Weight 97.273, kg, PRN Benzodiaze [...] ia 08-29 Route: l 14:01: IVP, ONCE, Roff 00 Dosing Weight 97.273, kg, PRN Nausea [...] 08-29 Route: PO, l 14:01: Drug form: Roff 00 TAB, ONCE, Dosing Weight 97.273, kg, [...] oria ne 08-29 Route: l 14:01: IVP, Roff 00 Q5Min, Dosing Weight 97.273, kg, PRN [...] Memori a 08-29 Route: l 14:01: IVP, Roff 00 Q5Min, Dosing Weight 97.273, kg, PRN [...] oria ne 08-29 Route: l 14:01: IVP, Roff 00 Q5Min, Dosing Weight 97.273, kg, PRN [...] 08-29 Route: PO, l 14:01: Drug form: Roff 00 TAB, ONCE, Dosing Weight 97.273, kg, [...] Memori a 08-29 Route: l 14:01: IVP, Roff 00 Q2MIN, Dosing Weight 97.273, kg, PRN [...] Vomiting, Start date: 08/29/20 9:01:00 CDT Naloxone 2020-0 No 0.4 mg, Memori a 08-29 Route: l 14:01: IVP, Roff 00 Q2MIN, Dosing Weight 97.273, kg, PRN [...] 08-29 Route: PO, l 14:01: Drug form: Roff 00 TAB, ONCE, Dosing Weight 97.273, kg, [...] lisa 08-29 Route: l 14:01: IVP, PRN, Roff 00 Dosing Weight 97.273, kg, PRN Benzodiaze [...] ia 08-29 Route: l 14:01: IVP, ONCE, Roff 00 Dosing Weight 97.273, kg, PRN Nausea & Vomiting, Start date: 08/29/20 9:01:00 CDT Labetalol 1-0 No 10 mg, Memori a 08-29 Route: l 14:01: IVP, Roff 00 Q5Min, Dosing Weight 97.273, kg, PRN [...] lisa 08-29 Route: l 14:01: IVP, PRN, Roff Dosing Weight 97.273, kg, PRN Benzodiaze pine [...] 8:52:00 CDT rocuronium 2021-0 No Route: IV, Emerald emoria (ANES) 08-29 Drug form: l 13:52: INJ, ONCE, Stop date: 08/29/20 8:52:00 CDT propofol 202-0 No Route: IV, Mem oria (ANES) 08-29 Drug form: l 13:52: INJ, ONCE, Stop date: 08/29/20 8:52:00 CDT dexamethaso 202-0 No Route: IV, Memoria ne (ANES) 08-29 [...] Drug form: l 10 13:15: INJ, Start Roff microgram date: 08/29/20 8:15:00 CDT, Stop date: 08/29/20 9:15:00 CDT norepinephr 2020-0 No Route: IV, Memoria ine (ANES) 08-29 Drug form: l 10 13:15: INJ, Start Roff microgram date: 08/29/20 8:15:00 CDT, Stop date: [...] Drug form: l 10 13:15: INJ, Start Roff microgram 00 date: 08/29/20 8:15:00 CDT, Stop [...] 4-09 Total l 0.9% IV 12:30: Volume: Roff (ANES) 1000 00 1,000, mL Start date: [...] 4-09 Total l 0.9% IV 12:30: Volume: Roff (ANES) 1000 00 1,000, mL Start date: 08/29/20 7:30:00 CDT, Stop date: 08/29/20 8:30:00 CDT Sodium 2021-0 No Route: IV, Memor ia Chloride 4-09 Total l 0.9% IV 12:30: Volume: Roff (ANES) 1000 00 1,000, mL Start date: [...] PO, l Hydrochlori 11:42: Q24H, # 30 Roff de 150 MG 00 tab, 0 Extended Refill(s) Release Tablet 24 HR Yes 150 mg = 1 Memori a Bupropion -09 tab, PO, l Hydrochlori 11:42: Q24H, # 30 Roff de 150 MG 00 tab, 0 Extended [...] PO, l Hydrochlori 11:42: Q24H, # 30 Roff de 150 MG 00 tab, 0 Extended Refill(s) Release Tablet apixaban Yes 5 mg, PO, Me moria MG Oral 4- Q12H, tab, l Tablet 11:41: 0 Roff [Eliquis] 00 Refill(s), For Atrial Fibrilatio n apixaban 0 Yes 5 mg, PO, Me moria MG Oral 4- Q12H, tab, l Tablet 11:41: 0 Roff [Eliquis] 00 Refill(s), For Atrial Fibrilatio n [...] 4- Q12H, tab, l Tablet 11:41: 0 Roff [Eliquis] 00 Refill(s), For Atrial Fibrilatio n apixaban 5 2020-0 Yes 5 mg, PO, Me moria MG Oral 4- Q12H, tab, l Tablet 11:41: 0 Roff [Eliquis] 00 Refill(s), For Atrial Fibrilatio n apixaban 5 2020-0 Yes 5 mg, PO, Me moria MG Oral 4- Q12H, tab, l Tablet 11:41: 0 Roff [Eliquis] 00 Refill(s), For Atrial Fibrilatio n AMIODarone 2020-0 Yes 200 mg = 1 M emoria 200 mg oral 4-09 tab, PO, l tablet 11:38: Daily, # Roff 00 90 tab, 3 Refill(s) AMIODarone 0 Yes 200 mg = 1 M emoria 200 mg oral 4-09 tab, PO, l tablet 11:38: Daily, # Marty 00 90 tab, 3 Refill(s) AMIODarone 0 Yes 200 mg = 1 M emoria 200 mg oral 4-09 tab, PO, l tablet 11:38: Daily, # Roff 00 90 tab, 3 Refill(s) AMIODarone 0 [...] tab, PO, l tablet 11:38: Daily, # Roff 00 90 tab, 3 Refill(s) AMIODarone 2020-0 Yes 200 mg = 1 M emoria 200 mg oral 4-09 tab, PO, l tablet 11:38: Daily, # Roff 00 90 tab, 3 Refill(s) normal 0 No 1,000 mL, Memori a saline 0.9% 4- Rate: 100 l IV 1,000 mL 10:30: [...] No 1,000 mL, Memori a saline 0.9% 4- Rate: 100 l IV 1,000 mL 10:30: [...] l Eliquis 5 Yes [facility] mg tablet 3-27 st 00:00: [...] awake for 30 days. budesonide 2019-05 No [id number] .5mg Q.5D Take 2 mL [facility] (PULMICORT) [...] day for 30 days. acetaminoph 2019-05- [place] [id number] 1{tbl} Q6H Take 1 [facility] en-codeine 07-04 [...] nebulizer %) solution solution for nebulizati on triamterene Yes 1{each} 1 each. UT -hydroCHLOR 1-27 Health Othiazide 00:00: (Dyazide) 00 37.5-25 MG capsule triamterene Yes 1{each} 1 each. UT -hydroCHLOR 1-27 Health Othiazide 00:00: (Dyazide) 00 37.5-25 MG capsule Emtricitabi 2018-05 Yes Descovy UT ne-Tenofovi 1-21 [...] tablet 00 (two) times a day. sertraline 2019-0 Yes 200mg Q.5D Take 200 UT (Zoloft) [...] Immunizations Ordered Filled Immunization Date Status Comments [facility] e Immunization Name Name PFIZER COVID-19 2020-07-23 Completed [facility] MRNA VACCINATION 00:00:00 [facility] PFIZER COVID-19 2020-07-02 Completed [facility] MRNA VACCINATION 00:00:00 [facility] Influenza Virus 2017-03-08 Completed Universit y of Vaccine 00:00:00 [facility] Influenza Virus 2014-01-30 Completed Universit y of Vaccine (3+ yrs) 00:00:00 [facility] Branch Pneumococcal 13 2014-01-30 Completed Universit y of Conjugate, PCV13 00:00:00 [facility] dical (Prevnar 13) Branch Pneumococcal 2012-02-16 Completed University o f Polysaccharide, 00:00:00 [facility] ical PPSV23 (PNEUMOVAX) Branch Influenza Virus 2012-02-16 Completed Universit y of Vaccine 00:00:00 [facility] PPD (TB) 2012-02-16 Completed University of 00:00:00 [facility] Hep B, Adol or Pedi 2011-09-01 Completed Unive rsity of Dosage 00:00:00 [facility] Hep B, Adol or Pedi 2011-03-17 Completed Unive rsity of Dosage 00:00:00 [facility] Influenza Virus 2011-02-10 Completed Universit y of Vaccine 00:00:00 [facility] Hep B, Adol or Pedi 2011-02-10 Completed Unive rsity of Dosage 00:00:00 [facility] PPD (TB) 2010-11-18 Completed University of 00:00:00 [facility] TDAP (ADACEL) 2010-11-18 Completed University of VACCINE 00:00:00 [facility] HEPATITIS A 2004-03-02 Completed University of 00:00:00 [facility] HEPATITIS A 2003-08-01 Completed University of 00:00:00 [facility] Pneumococcal 2001-10-04 Completed [place] [facility] f Polysaccharide, 00:00:00 [facility] ical PPSV23 (PNEUMOVAX) Branch PPD (TB) 2001-10-04 Completed [facility] 00:00:00 [facility] Vital Signs Vital Name Observation Time Observation Value Comments Source Systolic blood 2021-07-14 142 mm[Hg] [facility] pressure 15:18:00 Diastolic blood 2021-07-14 76 mm[Hg] [facility] pressure 15:18:00 Heart rate 2021-07-14 61 /min [facility] 15:18:00 Body height 2021-07-14 162.6 cm [facility] 15:18:00 Body weight 2021-07-14 94.802 kg [facility] 15:18:00 BMI 2021-07-14 35.87 kg/m2 [facility] 15:18:00 Systolic blood 2021-06-15 175 mm[Hg] University of pressure 16:23:00 [facility] Diastolic blood 2021-06-15 104 mm[Hg] [place] o f pressure 16:23:00 [facility] Respiratory rate 2021-06-15 18 /min University 16:18:00 [facility] Body height 2021-06-15 162.6 cm [facility] 16:18:00 [facility] Body weight 2021-06-15 95.709 kg [facility] 16:18:00 [facility] BMI 2021-06-15 36.22 kg/m2 [facility] 16:18:00 [facility] Oxygen saturation 2021-06-15 92 /min Didn't bring O2 Univers ity of in Arterial blood 16:18:00 machine with [facility] by Pulse oximetry [facility] Heart rate 2021-01-28 56 /min University 14:08:00 [facility] Systolic blood 2020-12-08 125 mm[Hg] [facility] pressure 15:48:00 Hospital Diastolic blood 2020-12-08 76 mm[Hg] [facility] pressure 15:48:00 Hospital Heart rate 2020-12-08 64 /min [facility] 15:48:00 Hospital Body temperature 2020-12-08 36.61 Amina [facility] 15:48:00 Hospital Respiratory rate 2020-12-08 17 /min [facility] 15:48:00 Hospital Body height 2020-12-08 162.6 cm [facility] 15:48:00 Hospital Body weight 2020-12-08 98.884 kg [facility] 15:48:00 Hospital BMI 2020-12-08 37.42 kg/m2 [facility] 15:48:00 Hospital Oxygen saturation 2020-12-08 97 /min [facility] in Arterial blood 15:48:00 Hospital by Pulse oximetry Body temperature 2020-12-02 36.83 Amina University 14:14:00 [facility] Respitory Rate 2020-08-30 [facility] ariel 13:00:00 Systolic (mm Hg) 2020-08-30 [facility] rmann 13:00:00 Diastolic (mm Hg) 2020-08-30 [facility] ermann 13:00:00 Systolic (mm Hg) 2020-08-30 [facility] rmann 11:00:00 Diastolic (mm Hg) 2020-08-30 [facility] ermann 11:00:00 Temperature Oral 2020-08-30 98.4 F [facility] rmann (F) 11:00:00 Respitory Rate 2020-08-30 [facility] Herm ariel 11:00:00 Respitory Rate 2020-08-30 [facility] Herm ariel 10:00:00 Systolic (mm Hg) 2020-08-30 [facility] rmann 10:00:00 Diastolic (mm Hg) 2020-08-30 [facility] ermann 10:00:00 Temperature Oral 2020-08-30 96.9 F [facility] rmann (F) 00:00:00 Temperature Oral 2020-08-29 97.6 F [facility] rmann (F) 11:26:00 Height 2020-08-29 162.56 [facility] 10[facility]30:00 Weight 2020-08-29 [facility] 10:30:00 BMI Calculated 2020-08-29 [facility] Herm ariel 10:30:00 Procedures Procedure Date / Time Performing Source Performed Clinician ECG 12-LEAD [facility]-07[facility]14 [facility] 15:14:00 Elan [id number] 2021-06-17 RIKY [facility] Amelia 00:00:00 [facility] CONSENT/REFUSAL FOR DIAGNOSIS AND 2021-06-15 [facility] 16:11:59 Unassigned, No [facility] ASSIGNMENT OF BENEFITS 2021-06-15 Doctor [facility] of 16:11:40 Unassigned, No [place] [facility] GASTROINTESTINAL PANEL 2020-12-08 Eliseo Arce 22:21:00 Hospital XR ABDOMEN 1 VW 2020-12-08 Eliseo Arce 18:06:32 Hospital OR FL < 1 HOUR 2020-09-05 Eliseo Arce 22:39:00 Hospital SURGICAL PATHOLOGY REQUEST 2020-09-05 Eliseo Arce Metho dist 21:54:00 Hospital XR CHEST 1 VW PORTABLE 2020-09-05 Eliseo Arce 19:55:00 Hospital NE AN ELECTIVE ENDOTRACHEAL AIRWAY 2020-09-05 Remigio Lynnetteanahi Jean 16:47:23 V. [facility] EGD, INTRAOPERATIVE 2020-09-05 Eliseo Arce 16:27:00 [facility] PARTIAL THROMBOPLASTIN TIME (PTT) 2020-09-05 Ted Maharaj 15:04:00 [facility] PROTHROMBIN TIME WITH INR 2020-09-05 Jignesh Maharaj ist 15:04:00 [facility] HC COMPLETE BLD COUNT W/AUTO DIFF 2020-09-01 Ramiro Mitchell 15:45:00 Hospital PROTHROMBIN TIME WITH INR 2020-09-01 Ramiro Mitchell ist 15:45:00 Hospital PARTIAL THROMBOPLASTIN TIME (PTT) 2020-09-01 Ramiro Mitchell 15:45:00 [facility] ECG 12-LEAD 2020-09-01 Ramiro Mitchell 15:31:26 [facility] COVID-19 QUALITATIVE RT-PCR 2020-09-01 Ramiro Mitchell odist 15:24:00 [facility] COMPREHENSIVE METABOLIC PANEL 2020-09-01 Ramiro Mitchell thodist 15:23:00 Hospital ESTIMATED GFR 2020-09-01 Ramiro Mitchell 15:23:00 Hospital NM GASTRIC EMPTYING 2020-08-27 Eliseo Arce 19:05:[address] CHEST WO CONTRAST ABDOMEN WO 2020-08-21 Eliseo Arce CONTRAST 15:20:00 Hospital FL ESOPHAGRAM SINGLE CONTRAST 2020-08-13 Eliseo Arce thodist 15:25:00 [facility] [id number] 2020-05-07 Ted Engel 00:00:00 [facility] Hospital BASIC METABOLIC PANEL 2020-05-02 Pau Ott 15:08:00 Hospital HC COMPLETE BLD COUNT W/AUTO DIFF 2020-05-02 Pau Ott 15:08:00 Hospital MAGNESIUM LEVEL 2020-05-02 Pau Ott 15:08:00 Hospital ESTIMATED GFR 2020-05-02 Eliseo Arce 15:08:00 Hospital CBC HEMOGRAM 2020-05-01 Idalmis Montilla 11:20:00 Hospital BASIC METABOLIC PANEL 2020-05-01 Idalmis Montillaist 10:00:00 Hospital ESTIMATED GFR 2020-05-01 Idalmis Montillaist 10:00:00 Hospital HEPATIC FUNCTION PANEL 2020-05-01 Idalmis Montillais t 10:00:00 Hospital THYROID STIMULATING HORMONE 2020-05-01 Idalmis Montilla Met hodist 10:00:00 [facility] US DUPLEX VENOUS UPPER EXTREMITY 2020-04-30 Del Ceasar Jurado ee [facility] BILATERAL 23:36:00 Hospital XR CHEST 2 VW 2020-04-30 Pau Ott 22:18:36 Hospital MIDLINE INSERTION ATTEMPT - 2020-04-30 [place], Blesilda Me thodist UNSUCCESSFUL 17:14:34 Hospital XR ABDOMEN 1 VW PORTABLE 2020-04-[address] 15:45:00 [facility] ECG 12-LEAD 2020-04-30 Pau Ott 15:06:58 [facility] NE AN ELECTIVE ENDOTRACHEAL AIRWAY 2020-04-28 Carlee Malloy grady [facility] 20:57:57 Hospital REPAIR, HIATAL HERNIA, 2020-04-28 Eliseo Arce LAPAROSCOPIC, ROBOT-ASSISTED 19:38:00 [facility] pital ESOPHAGOGASTRODUODENOSCOPY (EGD) 2020-04-28 Eliseo Arce 19:38:00 [facility] POC GLUCOSE 2020-04-28 Eliseo Arce 15:01:00 Hospital SURGICAL PATHOLOGY REQUEST 2020-04-28 Eliseo Arce Metho dist 14:27:00 Hospital BASIC METABOLIC PANEL 2020-04-28 Ted Gonzalez 08:11:00 [facility] HC COMPLETE BLD COUNT W/AUTO DIFF 2020-04-28 Ted Gonzalez 08:11:00 [facility] MAGNESIUM LEVEL 2020-04-28 Amirhardy [facility] 08:11:00 [facility] PHOSPHORUS LEVEL 2020-04-28 Amirashmi [facility] 08:11:00 [facility] PROTHROMBIN TIME WITH INR 2020-04-28 Carlos Method ist 08:11:00 [facility] PARTIAL THROMBOPLASTIN TIME (PTT) 2020-04-28 Jignesh Gonzalezist 08:11:00 [facility] ESTIMATED GFR 2020-04-28 Eliseo Arce 08:11:00 Hospital TYPE AND SCREEN 2020-04-28 Eliseo Arce 08:11:00 Hospital POC GLUCOSE 2020-04-28 Eliseo Arce 05:38:00 Hospital POC GLUCOSE 2020-04-28 Eliseo Arce 02:14:00 Hospital TTE COMPLETE, WO CONTRAST, W 2020-04-27 Nieves Hyde Nd thodist DOPPLER ([id number]) 21:00:00 Hospital POC GLUCOSE 2020-04-27 Eliseo Arceist 18:30:00 Hospital BASIC METABOLIC PANEL 2020-04-27 Eliseo Arce [facility] 12:34:00 Hospital ESTIMATED GFR 2020-04-27 Eliseo Arce 12:34:00 Hospital POC GLUCOSE 2020-04-27 Eliseo Arceist 03:18:00 Hospital ECG 12-LEAD 2020-04-27 Nieves Hydeist 02:24:31 Hospital COVID-19 QUALITATIVE RT-PCR 2020-04-26 Carlos Meth odist 21:44:00 [facility] HC COMPLETE BLD COUNT W/AUTO DIFF 2020-04-26 Carlos [facility] 09:05:00 [facility] BASIC METABOLIC PANEL 2020-04-26 Carlos [facility] 09:05:00 [facility] MAGNESIUM LEVEL 2020-04-26 Amirhardy [facility] 09:05:00 [facility] PHOSPHORUS LEVEL 2020-04-26 Amirisaiosjacklyn [facility] 09:05:00 [facility] CD 4 SUBSET 2020-04-26 Eliseo Arce 09:05:00 Hospital ESTIMATED GFR 2020-04-26 Eliseo Arce [facility] 09:05:00 Hospital MISCELLANEOUS REFERRAL TEST 2020-04-26 Eliseo Arce Meth odist 09:05:00 Hospital POTASSIUM LEVEL 2020-04-26 Eliseo Arce [facility] 03:04:00 Hospital HC COMPLETE BLD COUNT W/AUTO DIFF 2020-04-26 Carlos, [facility] 00:51:00 [facility] BASIC METABOLIC PANEL 2020-04-26 Carlos [facility] 00:51:00 [facility] MAGNESIUM LEVEL 2020-04-26 Amirkhosravi, [facility] 00:51:00 [facility] PHOSPHORUS LEVEL 2020-04-26 Yvonnerkhosravi, [facility] 00:51:00 [facility] ESTIMATED GFR 2020-04-26 Eliseo Arce [facility] 00:51:00 Hospital FL ESOPHAGRAM DOUBLE CONTRAST 2020-04-25 Eliseo Arce Me thodist 17:31:[address] CHEST WO CONTRAST ABDOMEN WO 2020-04-21, Yen-Te [facility] CONTRAST PELVIS WO CONTRAST 14:15:34 [facility] ital HC COMPLETE BLD COUNT W/AUTO DIFF 2020-04-21, Yen-Te [facility] 13:22:00 [facility] COMPREHENSIVE METABOLIC PANEL 2020-04-21, Yen-Te Me thodist 13:22:00 [facility] LIPASE LEVEL 2020-04-21, Yen-Te [facility] 13:22:00 [facility] LACTIC ACID LEVEL, SEPSIS - NOW 2020-04-21, Yen-Te [facility] AND REPEAT 2X EVERY 3 HOURS 13:22:00 [facility] ital ESTIMATED GFR 2020-04-21, Yen-Te [facility] 13:22:00 [facility] Plan of Care Planned Activity Planned Date Details Comments Source Future Scheduled Test DIABETES: RETINAL EYE [facility] EXAM [code = DIABETES: RETINAL EYE EXAM] Future Scheduled Test DIABETIC FOOT EXAM [facility] [code = DIABETIC FOOT EXAM] Future Scheduled Test Screening for malignant [facility] neoplasm of cervix (procedure) [code = 899997546] Future Scheduled Test BREAST CANCER SCREENING [facility] [code = BREAST CANCER SCREENING] Future Scheduled Test COLONOSCOPY SCREENING [facility] [code = COLONOSCOPY SCREENING] Future Scheduled Test SHINGLES VACCINES (#1) [facility] [code = SHINGLES VACCINES (#1)] Future Scheduled Test COVID-19 VACCINE (3 - [facility] Pfizer risk 3-dose series) [code = COVID-19 VACCINE (3 - Pfizer risk 3-dose series)] Future Scheduled Test INFLUENZA VACCINE [code [facility] = INFLUENZA VACCINE] Future Scheduled Test 65+ PNEUMOCOCCAL Me [facility] VACCINE (4 of 4) [code = 65+ PNEUMOCOCCAL VACCINE (4 of 4)] Encounters Start End Encounter Admission Attending Care Care Encounter Source Date/Time Date/Time Type Type Clinicians Facility Department ID 2021-08-05 Inpatient EL Ashely, HCACL OUTD [id number] [facility] 10:45:00 Mike [id number] [facility] 2021-08-03 Inpatient Ashely, HCACL OUTD [id number] [facility] 11:30:00 Mike [id number] [facility] 2021-07-14 Outpatient J[facility]NY [facility] [id number] [facility] 09:33:51 [facility] 2021-06-16 Inpatient RAUL Lund, HCACL OUTD [id number] [facility] 08:30:00 Mike [id number] [facility] 2021-06-15 Inpatient EL Ashely, HCACL OUTD [id number] [facility] 10:30:00 Mike [id number] [facility] 2021-08-11 2021-08-11 [facility] [id number] Univers 08:00:00 08:00:00 SANTIAGO [id number] [facility] 2021-07-20 2021-07-20 Outpatient R [facility] [id number] Univers 10:00:00 10:00:00 SANTIAGO [facility] 2021-07-14 2021-07-14 Office KIMBERLEY Lira 6400 1.2.840.114 [id number] [facility] 08:45:00 09:34:01 Visit Elan RUIZ 350.1.13.58 [facility] 9.2.7.2.686 [id number] 1 2021-07-09 2021-07-09 Telephone KIMBERLEY De Souza 6400 1.2.840.114 [id number] [facility] 00:00:00 00:00:00 Beverly RUIZ 350.1.13.58 [facility] 9.2.7.2.686 [id number] 1 2021-06-17 2021-06-17 Inpatient RAUL Lund, HCACL INTE.02 [id number] [facility] 10:56:00 14:36:00 Mike [id number] [facility] 2021-06-17 2021-06-17 Inpatient RAUL Lund HCACL INTE.02 [id number] [facility] 10:56:00 14:36:00 Mike 47 [facility] 2021-06-15 2021-06-15 Orders Doctor 1.2.840.7 [id number] Univers 00:00:00 00:00:00 Only Unassigned, 17574.1.1 ity of [place] 3.104.2.7 [place] .3.739990 Medica l .8 Branch 2021-06-15 2021-06-15 Travel 1.2.840.1 1.2.731.201 [id number] Univers 00:00:00 00:00:00 74249.1.1 350.1.13.10 ity of 3.104.2.7 4[place]7.3.698 [place] .3.874901 084.8 Medica l .8 Branch 2021-06-11 2021-06-11 Refill East, 1.2.840.7 [id number] Univers 00:00:00 00:00:00 Santiago 51103.1.1 ity of 3.104.2.7 [place] .3.400745 Medica l .8 Branch 2021-06-02 2021-06-02 Telephone East, 1.2.840.0 [id number] Univers 00:00:00 00:00:00 Santiago 64132.1.1 ity of 3.104.2.7 [place] .3.851397 Medica l .8 Branch 2021-05-29 2021-05-29 Telephone East, 1.2.840.4 [id number] Univers 00:00:00 00:00:00 Santiago 00548.1.1 ity of 3.104.2.7 [place] .3.765241 Medica l .8 Branch 2021-01-19 2021-01-19 Telephone Prabhu, 1.2.840.1 [id number] Methodi 00:00:00 00:00:[address] 3.430.2.7 Hospit a .3.878889 l .8 2020-12-12 2020-12-12 Office [facility], [facility] 6400 1.2.840.114 [id number] 07:42:02 08:18:[address] 350.1.13.58 9.2.7.2.686 [id number] 1 2020-12-09 2020-12-09 Telephone Carol Ann, 1.2.840.1 [id number] Methodi 00:00:00 00:00:00 Sarai CorbinChelsie 92571.1.1 316 s t 3.430.2.7 Hospit a .3.817455 l .8 2020-12-08 2020-12-08 [facility], 1.2.840.1 [id number] 2100 [id number] Methodi 12:35:54 23:59:00 Encounter Ray 11737.1.[address] 3.430.2.7 Hospit a .3.096041 l .8 2020-12-08 2020-12-08 [facility], 1.2.840.1 [id number] Methodi 17:20:50 17:25:[address] 3.430.2.7 Hospit a .3.680281 l .8 2020-12-08 2020-12-08 Office [facility], 1.2.840.1 [id number] Methodi 09:55:34 11:39:56 Visit Ray 05434.1.[address] 3.430.2.7 Hospit a .3.867443 l .8 2020-12-08 2020-12-08 Travel 1.2.840.1 1.2.507.745 [id number] [id number] Methodi 00:00:00 00:00:[address] 3.430.2.7 0.2.7.3.698 spita .3.138029 084.8 l .8 2020-12-02 2020-12-02 Assembler Cards And Announcements [facility] 1.2.840.114 [id number] 10:20:06 10:36:19 Visit HEALTH 350.1.13.10 [facility] 4.2.7.2.686 [id number] 2020-11-25 2020-11-25 Office [facility] 1.2.840.114 [id number] 11:06:30 11:58:14 Visit Robbi R [employer] 350.1.13.10 [facility] 4.2.7.2.686 MATERNAL [id number] & CHILD [facility] 2020-11-25 2020-11-25 [facility] 1.2.138.886 [id number] 00:00:00 00:00:00 [facility] 350.1.13.10 [facility] 4.2.7.2.686 [id number] 2020-11-25 2020-11-25 Telephone [facility] 1.2.936.598 [id number] 00:00:00 00:00:00 Rosheidia R [employer]IP 350.1.13.10 REGIONAL 4.2.7.2.686 MATERNAL [id number] & CHILD 107 [facility] 2020-11-14 2020-11-14 Abstract Clark 1.2.840.1 [id number] Methodi 00:00:00 00:00:[address] 3.430.2.7 Hospit a .3.162960 l .8 2020-11-14 2020-11-14 Telephone Clark 1.2.840.1 [id number] 2100 [id number] Methodi 00:00:00 00:00:[address] 3.430.2.7 Hospit a .3.219616 l .8 2020-11-07 2020-11-07 Telephone KIMBERLEY Ortiz 64[address] 1.2.840.114 [id number] 00:00:00 00:00:[address] 350.1.13.58 9.2.7.2.686 [id number] 1 2020-10-27 2020-10-27 Telephone Yazmin, 1.2.840.3 [id number] Methodi 00:00:00 00:00:[address] 3.430.2.7 Hospit a .3.502088 l .8 2020-10-24 2020-10-24 Telephone Rodas, 1.2.840.1 [id number] Methodi 00:00:00 00:00:[address] 3.430.2.7 Hospit a .3.124940 l .8 2020-10-06 2020-10-12 Telemedici Yazmin, 1.2.840.1 [id number] Methodi 15:26:54 00:08:46 ne Ray 47284.1.[address] 3.430.2.7 Hospit a .3.378177 l .8 2020-09-30 2020-09-30 Telephone Yazmin, 1.2.840.9 [id number] Methodi 00:00:00 00:00:[address] 3.430.2.7 Hospit a .3.548794 l .8 2020-09-21 2020-09-21 Travel 1.2.840.1 1.2.112.069 3049 [id number] Methodi 00:00:00 00:00:[address] 3.430.2.7 0.2.7.3.698 Ho spita .3.944529 084.8 l .8 2020-09-01 2020-09-09 Lab Ramiro Mitchell 1.2.840.1 [id number] Methodi 10:13:59 01:05:[address] 3.430.2.7 Hospit a .3.059483 l .8 2020-09-06 2020-09-06 [facility] 1.2.840.1 [id number] Methodi 17:42:30 23:59:[address] 3.430.2.7 Hospit a .3.203106 l .8 2020-09-06 2020-09-06 [facility], 1.2.840.1 [id number] 2100 [id number] Methodi 16:50:00 17:41:00 Encounter Ray [address]9991.1.[address] 3.430.2.7 Hospit a .3.996920 l .8 2020-09-05 2020-09-05 [facility], 1.2.840.1 [id number] Methodi 09:17:00 19:45:00 Encounter Ray [address]160.1.[address] 3.430.2.7 Hospit a .3.388723 l .8 2020-09-05 2020-09-05 [facility], 1.2.840.1 [id number] Methodi 11:30:00 13:15:[address] 3.430.2.7 Hospit a .3.182127 l .8 2020-09-05 2020-09-05 [facility], 1.2.840.1 [id number] Methodi 11:27:00 12:20:00 Event Anupamwathi 40717.1.1 243 s t V. 3.430.2.7 Hospit a .3.328210 l .8 2020-09-05 2020-09-05 Travel 1.2.840.1 1.2.906.208 3149 [id number] Methodi 00:00:00 00:00:[address] 3.430.2.7 0.2.7.3.698 Ho wilder .3.899460 084.8 l .8 2020-09-04 2020-09-04 Telephone Carol Ann, 1.2.840.1 [id number] Methodi 00:00:00 00:00:00 Sarai Lieberman 69972.1.1 762 s t 3.430.2.7 Hospit a .3.736020 l .8 2020-09-02 2020-09-02 Telephone Carol Ann, 1.2.840.8 [id number] Methodi 00:00:00 00:00:00 Sarai Lieberman 09231.1.1 344 s t 3.430.2.7 Hospit a .3.133426 l .8 2020-09-01 2020-09-01 Office Chirichelle, 1.2.840.1 [id number] Methodi 08:42:53 09:50:51 Visit Ray 49040.1.[address] 3.430.2.7 Hospit a .3.069554 l .8 2020-09-01 2020-09-01 Telephone Yazmin, 1.2.840.4 [id number] Methodi 00:00:00 00:00:[address] 3.430.2.7 Hospit a .3.375462 l .8 2020-09-01 2020-09-01 Travel 1.2.840.1 1.2.479.800 [id number] Methodi 00:00:00 00:00:[address] 3.430.2.7 0.2.7.3.698 Ho spita .3.937283 084.8 l .8 2020-08-29 2020-08-30 Bedded [facility] [id number] [facility] 10:20:00 14:10:00 Outpatient [facility] 00 l [facility] 2020-08-29 2020-08-30 Outpatient [facility], [facility] CAR 7500 [facility] 05:20:00 09:10:00 BEVERLY 2020-08-27 2020-08-27 [facility], 1.2.840.1 [id number] Methodi 09:55:15 23:59:00 Encounter Ray [address].1.[address] 3.430.2.7 Hospit a .3.424705 l .8 2020-08-27 2020-08-27 Travel 1.2.840.1 1.2.668.612 [id number] Methodi 00:00:00 00:00:[address] 3.430.2.7 0.2.7.3.698 Ho spita .3.307627 084.8 l .8 2020-08-21 2020-08-21 Travel 1.2.840.1 1.2.534.276 0874 [id number] Methodi 00:00:00 00:00:[address] 3.430.2.7 0.2.7.3.698 Ho spita .3.131809 084.8 l .8 2020-08-19 2020-08-19 Telephone Meli, 1.2.840.1 [id number] 323 [id number] Methodi 00:00:00 00:00:[address] 3.430.2.7 Hospit a .3.332497 l .8 2020-08-19 2020-08-19 Travel 1.2.840.1 1.2.861.802 5044 477769 Methodi 00:00:00 00:00:[address] 3.430.2.7 0.2.7.3.698 Ho spita .3.270830 084.8 l .8 2020-08-18 2020-08-18 Orders Carol Ann, 1.2.840.3 [id number] 2 [id number] Methodi 00:00:00 00:00:00 Only Sarai Lieberman 54605.1.1 410 s t 3.430.2.7 Hospit a .3.137398 l .8 2020-08-18 2020-08-18 Travel 1.2.840.1 1.2.739.469 6759 418210 Methodi 00:00:00 00:00:[address] 3.430.2.7 0.2.7.3.698 Ho spita .3.180817 084.8 l .8 2020-08-15 2020-08-15 Abstract Clark 1.2.840.1 [id number] 59480 Methodi 00:00:00 00:00:[address] 3.430.2.7 Hospit a .3.207903 l .8 2020-07-02 2020-08-06 Clinical 1.2.840.1 [id number] 73090 Methodi 10:40:46 01:45:[address] 3.430.2.7 Hospit a .3.767417 l .8 2020-07-30 2020-07-30 Travel 1.2.840.1 1.2.269.534 3612 904133 Methodi 00:00:00 00:00:[address] 3.430.2.7 0.2.7.3.698 Ho spita .3.739621 084.8 l .8 2020-07-28 2020-07-28 Office Yazmin, 1.2.840.1 [id number] 57714 Methodi 08:35:45 10:11:52 Visit Ray 82713.1.[address] 3.430.2.7 Hospit a .3.723801 l .8 2020-07-28 2020-07-28 Telephone Clark 1.2.840.1 [id number] 2099 304412 Methodi 00:00:00 00:00:[address] 3.430.2.7 Hospit a .3.080101 l .8 2020-07-28 2020-07-28 Travel 1.2.840.1 1.2.834.950 1420 161257 Methodi 00:00:00 00:00:[address] 3.430.2.7 0.2.7.3.698 Ho spita .3.868149 084.8 l .8 2020-07-25 2020-07-25 Telephone Carol Ann, 1.2.840.0 [id number] Methodi 00:00:00 00:00:00 Sarai Lieberman 08506.1.1 314 s t 3.430.2.7 Hospit a .3.256979 l .8 2020-07-25 2020-07-25 Travel 1.2.840.1 1.2.857.038 9398 151956 Methodi 00:00:00 00:00:[address] 3.430.2.7 0.2.7.3.698 Ho spita .3.872798 084.8 l .8 2020-07-23 2020-07-23 Clinical Tori, 1.2.840.1 [id number] 06355 83595 Methodi 08:39:40 08:44:40 Support Hoang 54471.1.[address] P. 3.430.2.7 Hospit a .3.915368 l .8 2020-07-23 2020-07-23 Travel 1.2.840.1 1.2.219.320 2832 284854 Methodi 00:00:00 00:00:[address] 3.430.2.7 0.2.7.3.698 Ho spita .3.469801 084.8 l .8 2020-07-11 2020-07-11 Travel 1.2.840.1 1.2.564.699 8206 126679 Methodi 00:00:00 00:00:[address] 3.430.2.7 0.2.7.3.698 Ho spita .3.795850 084.8 l .8 2020-07-02 2020-07-02 Telephone Yazmin, 1.2.840.4 [id number] Methodi 00:00:00 00:00:[address] 3.430.2.7 Hospit a .3.112154 l .8 2020-07-02 2020-07-02 Travel 1.2.840.1 1.2.022.929 8180 323415 Methodi 00:00:00 00:00:[address] 3.430.2.7 0.2.7.3.698 Ho spita .3.333551 084.8 l .8 2020-06-23 2020-06-23 Office Yazmin, 1.2.840.1 [id number] 84691 11137 Methodi 09:36:17 11:00:44 Visit Ray 03658.1.[address] 3.430.2.7 Hospit a .3.875077 l .8 2020-06-23 2020-06-23 Telephone Clark, 1.2.840.1 [id number] 2100 410448 Methodi 00:00:00 00:00:[address] 3.430.2.7 Hospit a .3.642347 l .8 2020-06-23 2020-06-23 Travel 1.2.840.1 1.2.497.102 2269 802709 Methodi 00:00:00 00:00:[address] 3.430.2.7 0.2.7.3.698 Ho spita .3.200600 084.8 l .8 2020-06-09 2020-06-09 Telephone Yazmin, 1.2.840.3 [id number] Methodi 00:00:00 00:00:[address] 3.430.2.7 Hospit a .3.367742 l .8 2020-06-06 2020-06-06 Reflamonte Ball, 1.2.840.1 [id number] 007016 6156 Methodi 00:00:00 00:00:00 Eh Lemus 48488.1.[address] 3.430.2.7 Hospit a .3.584466 l .8 2020-06-03 2020-06-03 Telephone [facility], 1.2.840.6 [id number] Methodi 00:00:00 00:00:[address] 3.430.2.7 Hospit a .3.123946 l .8 2020-06-02 2020-06-02 Telephone [facility], 1.2.840.7 [id number] Methodi 00:00:00 00:00:[address] 3.430.2.7 Hospit a .3.234337 l .8 2020-05-13 2020-05-13 Orders [facility], 1.2.840.1 [id number] 2099 473615 Methodi 00:00:00 00:00:00 Only Historical 03818.1.1 108 s t 3.430.2.7 Hospit a .3.517653 l .8 2020-05-09 2020-05-09 Telephone [facility], 1.2.840.1 [id number] Methodi 00:00:00 00:00:00 Sarai Lieberman 88698.1.1 660 s t 3.430.2.7 Hospit a .3.957192 l .8 2020-05-09 2020-05-09 Telephone [facility], 1.2.840.0 [id number] Methodi 00:00:00 00:00:[address] 3.430.2.7 Hospit a .3.793854 l .8 2020-05-08 2020-05-08 Telephone [facility], 1.2.840.2 [id number] Methodi 00:00:00 00:00:[address] 3.430.2.7 Hospit a .3.532002 l .8 2020-05-07 2020-05-07 Telephone [facility], 1.2.840.2 [id number] 21 [id number] Methodi 00:00:00 00:00:[address] 3.430.2.7 Hospit a .3.349533 l .8 2020-05-05 2020-05-05 Telephone [facility], 1.2.840.7 [id number] 21 [id number] Methodi 00:00:00 00:00:[address] 3.430.2.7 Hospit a .3.771487 l .8 2020-04-25 2020-05-03 [facility], 1.2.840.1 [id number] 2100 395701 Methodi 17:33:00 13:39:00 Encounter Ray 59675.1.[address] 3.430.2.7 Hospit a .3.857316 l .8 2020-04-28 2020-04-28 Anesthesia Tomas Pinon 1.2.840.1 [id number] Methodi 13:38:00 19:40:00 Event Justine Catalan 24655.1.[address] 3.430.2.7 Hospit a .3.158411 l .8 2020-04-28 2020-04-28 [facility], 1.2.840.1 [id number] 95968 89967 Methodi 13:00:00 17:10:[address] 3.430.2.7 Hospit a .3.085470 l .8 2020-04-25 2020-04-25 [facility], 1.2.840.1 [id number] 2099 810977 Methodi 10:00:00 17:32:00 Encounter Ray [address]366.1.[address] 3.430.2.7 Hospit a .3.691819 l .8 2020-04-25 2020-04-25 [facility], 1.2.840.1 [id number] 76824 44791 Methodi 11:43:50 13:44:26 Visit Ray 15980.1.[address] 3.430.2.7 Hospit a .3.691311 l .8 2020-04-25 2020-04-25 Travel 1.2.840.1 1.2.459.165 5937 230149 Methodi 00:00:00 00:00:[address] 3.430.2.7 0.2.7.3.698 Ho spita .3.456849 084.8 l .8 2020-04-24 2020-04-24 Prep for Carol Ann, 1.2.840.1 [id number] 2 [id number] Methodi 00:00:00 00:00:00 Surgery Sarai Lieberman 28198.1.1 524 s t 3.430.2.7 Hospit a .3.822218 l .8 2020-04-22 2020-04-22 Telephone Meli, 1.2.840.1 [id number] 146 [id number] Methodi 00:00:00 00:00:[address] 3.430.2.7 Hospit a .3.968914 l .8 2020-04-22 2020-04-22 Travel 1.2.840.1 1.2.764.004 0217 536825 Methodi 00:00:00 00:00:[address] 3.430.2.7 0.2.7.3.698 Ho spita .3.942308 084.8 l .8 2020-04-21 2020-04-21 Emergency Tu, Jolene-Te 1.2.840.1 [id number] 2 [id number] Methodi 06:51:00 10:43:[address] 3.430.2.7 Hospit a .3.542900 l .8 2020-04-21 2020-04-21 Orders Meiariel, 1.2.840.1 [id number] 21 [id number] Methodi 00:00:00 00:00:00 Only Sarai Lieberman 95615.1.1 550 s t 3.430.2.7 Hospit a .3.357795 l .8 2020-04-16 2020-04-16 Telephone Carol Ann, 1.2.840.1 [id number] Methodi 00:00:00 00:00:00 Sarai Lieberman 63289.1.1 673 s t 3.430.2.7 Hospit a .3.205662 l .8 2020-04-10 2020-04-10 Telephone Yazmin, 1.2.840.3 [id number] Methodi 00:00:00 00:00:[address] 3.430.2.7 Hospit a .3.068197 l .8 2020-04-07 2020-04-07 Telephone Nahum, 1.2.840.1 [id number] 2099 952999 Methodi 00:00:00 00:00:[address] 3.430.2.7 Hospit a .3.195440 l .8 2020-04-01 2020-04-01 Orders Provider, 1.2.840.1 [id number] 2099 563763 Methodi 00:00:00 00:00:00 Only Historical 89384.1.1 049 s t 3.430.2.7 Hospit a .3.971697 l .8 2020-03-31 2020-03-31 Travel 1.2.840.1 1.2.369.953 6339 029895 Methodi 00:00:00 00:00:[address] 3.430.2.7 0.2.7.3.698 Ho spita .3.629752 084.8 l .8 2020-03-27 2020-03-27 Telephone Paula, Min 1.2.840.1 [id number] Methodi 00:00:00 00:00:[address] 3.430.2.7 Hospit a .3.444485 l .8 Results Test Description Test Time Test Comments Results Result Comments Source ECG 12 lead 2021-07-14 15:14:00 Test Item Value Reference Range Interpretation Comme nts Lab Interpretation (test code = 32482-2) Normal [facility] QrzivnEQT-VLNJG4554-85-26 08:47:00 Test Item Value Reference Range Interpretation Comments ACTBibianaISESPERANZAT (test code 249 SEC 74-137 H Perform ed by 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 = 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 [facility] - XR CHEST 1 Q7326-20-81 00:00:00 [facility] 1955 Sex: F FAX: Lele Olivera [phone] [place]: St: ADM FAX: Jean Paul Scales MD [phone] FAX: Bahman Chopra [phone] Name: LIO WATTS [facility] : 1955 Age/S: 66/F [address] [place] [address] Unit #: [id number] Loc: KWABENA Bernstein [address] Phys: Bahman Chopra Acct: [id number] Dis Date: Status:ADM IN PHONE #: [phone] Exam Date: 06/17/2021 1320 FAX #: [phone] Reason: WATCHMAN EXAMS: CPT CODE: [id number] XR CHEST 1 V 07622 PROCEDURE INFORMATION: Exam: XR Chest Examdate and [...] Chopra Technologist: RT Taylor(R) Trnscrd Date/Time/By: 06/17/2021 (2702) : By: Susanna Orig Print D/T: S: 06/17/2021 (8970) PAGE 1 Signed ReportCOVID 19 Asymptomatic IH YT9696-01-00 12:29:00 Test Item Value Reference Range Interpretation Comments COVID 19 Asymptomatic Negative Negative A neg ative result is IH AG (test code = presumpti ve and should COVNONPUIAG) be confirmedwit h an FDA authorized mole cular assay, if violaes luc[place] forpatient tamara garcia.A positive result does not rule out co-inf [...] high or waivedcomplexit y tests. BASIC METABOLIC MOLYG5006-13-01 11:37:00 Test Item Value Reference Range Interpretation [...] code = 9.0 mg/dL 8.0-10.5 N CA) ILEHFLVJGS1435-76-03 11:37:00 Test Item Value Reference Range Interpretation Comments PREALBUMIN (test code = PREALB) 24.3 mg/dL 16.0-40.0 N PROTHROMBIN DJPN9848-80-89 11:03:00 Test Item Value Reference Range Interpretation [...] o prevent recurre nt infarct). CBC W/AUTO DPDN0830-27-76 10:59:00 Test Item Value Reference Range Interpretation [...] 0.0-0.1 N NRBC#) - XR CHEST 2 B0848-96-89 00:00:00 [facility] : 1955 Sex: F FAX: Lele Olivera DO [phone] [place]: St: PRE FAX: Jean Paul Scales MD [phone] Name: [facility] : 1955 Age/S: 66/F [address] [place] [address] Blvd Unit #: [id number] [place]: [place] [address] Phys: [id number] Dis Date: Status: PRE SDC PHONE #: [phone] Exam Date: 06/16/2021 1120 FAX #: [phone] Reason: PREOP EXAMS: CPT CODE: [id number] XR CHEST 2 V 33224 PROCEDURE INFORMATION: Exam: XR Chest Exam date [...] DO; Mike Lund MD Technologist: RT Andree(R) Trnbob Date/Time/By: 06/16/2021 (113) : By: [email or web address] Orig Print D/T: S: 06/16/2021 (6093) PAGE 1 Signed ReportGastrointestinal rihic6380-84-78 04:35:05 Test Item Value Reference Interpretation Comments [...] Rotavirus PCR (test Not Detected code = 6305916) Salmonella PCR (test Not Detected code = [...] PCR Not Detected (test code = 7124) [facility] Ni1141-00-20 19:17:40EXAMINATION: XR ABDOMEN 1 VW CLINICAL HISTORY: [...] clips are noted.[id number] [place] < 1 Gpir0840-64-53 19:41:02EXAMINATION: OR FL < 1 HOUR C-arm fluoroscopy was requested in OR. Location: [facility] OR room 6 Procedure: EGD WITH [...] arm fluoroscopy was requested in OR. Location: [facility] OR room 6 Procedure: EGD WITH BOTOX INJECTION INTO THE PYLORUS, ENDOFLIP, ON TABLE ESOPHAGRAM (N/A ) Start: 1140 End:1222 FluoroTime: .19sec Dose: 7.8mGy Tech: A.BIMPRESSION:Intraoperative fluoroscopic images. Radiologist was not present during the examination.Separate operative report will be issued by the physician performingthe procedure.[id number] HospitalSurgical pathology request 2020-09-08 19:30:47 Test Item Value Reference Range Interpretation Comments Case number (test [id number] code = 6648092) Surgical pathology See link below for PDF report (test code = Lab Report 2255) Result status (test This is Supplemental code = [id number]) Report for [id number] [facility] 1 Vw Uejpqgsq7148-72-15 23:06:58EXAMINATION: XR CHEST 1 VW PORTABLE HISTORY: [...] Bilateral shoulder arthroplasties. [facility][id number] Interface, Radiology Results Incoming - 09/06/2020 6:09PM [...] to prior.Bilateral shoulder arthroplasties.[facility]-[id number] [facility] – PflugervilleMlkdawwxLebagl1986-12-05 16:47:23Kirit Flood MD 09/05/2020 11:48 [address] Location: [...] RSI: Yes Number of Attempts at Approach: [address] [place] [address] vpqk6190-39-44 23:21:56 Test Item Value Reference Range Interpretation [...] T wave abnormality, consider anterior ischemia-Abnormal ECG- [facility]OVID-19 qualitative GDJ7730-31-76 22:48:41 Test Item Value Reference Range Interpretation Comments Interpretation (test Negative results do code = 3936171) not preclude 2019-nCoV infection and should not be used as the sole basis for treatment or other patient management decisions. Negative results must be combined with clinical observations, patient history, and epidemiological information. COVID-19 qualitative Not-Detected Not-Detected RT-PCR result (test code = 57259-5) COVID-19 qualitative See link below for C ase Number: RT-PCR (test code = PDF Lab Report [id number]) [facility]2021-04-09 16:31:00 Test Item Value Reference Range Interpretation Comments POC Activated Clotting Time (test code 153 s = POC Activated Clotting Time) [facility] CenterFxjfizpBHQXSCQXGQ4395-27-04 16:31:00 Test Item Value Reference Range Interpretation Comments POC Activated Clotting Time (test code 153 s = POC Activated Clotting Time) [facility] CenterQlwkyraRQOPAIVHHN5871-63-42 16:31:00 Test Item Value Reference Range Interpretation Comments POC Activated Clotting Time (test code 153 s = POC Activated Clotting Time) [facility] CenterJpkemyyQCIWZIMWRX8179-55-18 16:31:00 Test Item Value Reference Range Interpretation Comments POC Activated Clotting Time (test code 153 s = POC Activated Clotting Time) [facility] CenterUzqjmmuLROFUHBZDB9646-27-79 16:31:00 Test Item Value Reference Range Interpretation Comments POC Activated Clotting Time (test code 153 s = POC Activated Clotting Time) [facility] CenterGddsrzjXXBCXMWXLS4209-74-68 16:31:00 Test Item Value Reference Range Interpretation Comments POC Activated Clotting Time (test code 153 s = POC Activated Clotting Time) [facility] CenterLjmtddaMYFVMHPCIZ3191-20-54 16:31:00 Test Item Value Reference Range Interpretation Comments POC Activated Clotting Time (test code 153 s = POC Activated Clotting Time) [facility] CenterHloycnvRPNLMTQBZA5059-60-89 14:37:00 Test Item Value Reference Range Interpretation Comments POC Activated Clotting Time (test code 454 s = POC Activated Clotting Time) [facility] CenterNsuccsvTJTFSCHGLW9599-83-20 14:37:00 Test Item Value Reference Range Interpretation Comments POC Activated Clotting Time (test code 454 s = POC Activated Clotting Time) [place] 427471-04-09 14:37:00 Test Item Value Reference Range Interpretation Comments POC Activated Clotting Time (test code 454 s = POC Activated Clotting Time) [facility] CenterMpajwtnTUDKCDOHRZ5367-71-77 14:37:00 Test Item Value Reference Range Interpretation Comments POC Activated Clotting Time (test code 454 s = POC Activated Clotting Time) [facility] CenterWizaxxiQGUQXILCNM8223-45-94 14:37:00 Test Item Value Reference Range Interpretation Comments POC Activated Clotting Time (test code 454 s = POC Activated Clotting Time) [facility] CenterYeeydkySYQBSOIICK0760-40-31 14:37:00 Test Item Value Reference Range Interpretation Comments POC Activated Clotting Time (test code 454 s = POC Activated Clotting Time) [facility] CenterJwogpgySZURKSXARH8764-07-84 14:37:00 Test Item Value Reference Range Interpretation Comments POC Activated Clotting Time (test code 454 s = POC Activated Clotting Time) [facility] CenterBdfwhtpCEOEBSTTYH7002-41-45 14:13:00 Test Item Value Reference Range Interpretation Comments POC Activated Clotting Time (test code 354 s = POC Activated Clotting Time) [facility] CenterCvaxjzqZBTQXPFVLM5731-25-50 14:13:00 Test Item Value Reference Range Interpretation Comments POC Activated Clotting Time (test code 354 s = POC Activated Clotting Time) [facility] CenterNbyzjrbWEDBIXJEFT8717-03-82 14:13:00 Test Item Value Reference Range Interpretation Comments POC Activated Clotting Time (test code 354 s = POC Activated Clotting Time) [facility] CenterWvdzuwzRVKTEUWUDD6268-42-34 14:13:00 Test Item Value Reference Range Interpretation Comments POC Activated Clotting Time (test code 354 s = POC Activated Clotting Time) [facility] CenterTzmzfuyYJITJUFJIU8283-78-32 14:13:00 Test Item Value Reference Range Interpretation Comments POC Activated Clotting Time (test code 354 s = POC Activated Clotting Time) [facility] CenterQehfzrwJJLOFGTXRA5257-06-03 14:13:00 Test Item Value Reference Range Interpretation Comments POC Activated Clotting Time (test code 354 s = POC Activated Clotting Time) [facility] CenterFdyklkrUNHGPVTMQN0864-06-70 14:13:00 Test Item Value Reference Range Interpretation Comments POC Activated Clotting Time (test code 354 s = POC Activated Clotting Time) [facility] IVEUSVU0862-40-58 10:37:00Negative (08/29/20 5:37 AM) [facility]kinCHEM OZEGB8956-89-68 10:37:93269Vkutjhin HermannCHEM PANEL 2020-08-29 10:37:0028[facility] HermannCHEM ZZVYS3810-06-75 10:37:001.01[facility] HermannCHEM AYKFA2423-17-55 10:37:70342Svdhavhs HermannCHEM QOTAD2059-92-62 10:37:003.8[facility] HermannCHEM TXEAQ2852-82-40 10:37:08110Vewlcshi HermannCHEM HISMU2222-97-79 10:37:0028[facility] HermannCHEM PSGJV2958-76-06 10:37:009.8 [facility] HermannCHEM JZNZG7099-71-53 10:37:0011.8[facility] HermannCHEM PANEL 2020-08-29 10:37:0059Mem[facility] HermannCHEM WVGTW7210-55-65 10:37:002.9[facility]orial XktwhhbYHXXCHGKYQ0367-38-17 10:37:006.8[facility] JfkkzwjZCYMKCOFRW3751-67-81 10:37:004.47[facility] HubgranWPAHJEOWLD0458-22-65 10:37:0010.6[facility] Roff TTRAMYXMBW6807-02-06 10:37:0034.0[facility] NfaoxswPGDNGRMAXP2149-10-71 10:37:00 76.1Memorial UsaozgqKEGBUMFJPV3864-39-98 10:37:00 Test Item Value Reference Range Interpretation Comments MCH (test code = MCH) 23.8 pg 27.0-31.0 [facility] NkhoayoWRVBVEPPBR3438-63-75 10:37:0031.3[facility] HermannHEMATOLOGY 2020-08-29 10:37:0018.2[facility] OcguerkQKXUGIZQFP4429-88-63 10:37:73325Rcrewuzh HnebyidOGPNVMQXZX3944-78-11 10:37:007.5[facility] YglikgnIZCNIZNMOI9772-09-99 10:37:00 Test Item Value Reference Range Interpretation Comments PT (test code = PT) 12.8 s 12.0-14.7 [facility] AhjutrvHZZQFFHANI2496-24-23 10:37:00 Test Item Value Reference Range Interpretation Comments INR (test code = INR) 0.97 1 0.85-1.17 Memorial OqvltzvQDGYTZMVKF9800-37-37 10:37:00 Test Item Value Reference Range Interpretation Comments PTT (test code = PTT) 25.0 s 22.9-35.8 Memorial DixhsusHORAHCPWGX2285-79-84 10:37:0070.5[facility] HermannHEMATOLOGY 2020-08-29 10:37:0018.8[facility] AfpecqwQBWPLCUDRT3551-21-53 10:37:009.5[facility] SqmwbpaKPZWAOJPKL9248-06-47 10:37:000.9[facility] JdthtxeZPCZDEMMEU6706-05-90 10:37:000.3[facility] DkyjmdeMEOVRYZBXJ4721-03-60 10:37:004.8[facility] Marty JKONAROPRG4115-50-27 10:37:001.3[facility] PwrhwptJQVBCDXLRM6717-03-94 10:37:000.6 Memorial WfwabflZJPBMYOZEA7476-78-39 10:37:000.1[facility] HermannHEMATOLOGY 2020-08-29 10:37:001+ *ABN*(08/29/20 5:37 AM)[facility] VeeupltYRFUNLDNLT0978-12-21 10:37:00Not Detected (08/29/20 5:37 AM)[facility] HermannBLOOD BANK RESULTS 2020-08-29 10:37:00Negative (08/29/20 5:37 AM)[facility] HermannCHEM MCMWM4862-23-17 10:37:09265Iwndczat HermannCHEM NKUBT4450-63-03 10:37:0028[facility] HermannCHEM TWEJX9785-35-59 10:37:001.01[facility] HermannCHEM DMAUB0535-20-24 10:37:13348 [facility] HermannCHEM WEFLM5304-47-36 10:37:003.8[facility] HermannCHEM PANEL 2020-08-29 10:37:47250Dudmceea HermannCHEM CGWSE4433-08-94 10:37:0028[facility] HermannCHEM OPIVZ4132-17-55 10:37:009.8[facility] HermannCHEM UDPZN5521-79-16 10:37:0011.8[facility] HermannCHEM NWRPB1644-06-59 10:37:0059[facility] HermannCHEM IWLYY9412-45-21 10:37:002.9[facility] XhmcgfxIRJAFBVJEP0391-20-45 10:37:006.8 Memorial EokpfhsZNAIRIBVTI5930-41-26 10:37:004.47[facility] HermannHEMATOLOGY 2020-08-29 10:37:0010.6[facility] MdwrhzjEAEEZHIOSK8507-70-50 10:37:0034.0[facility] UsdmectDDUDHNUPGO4823-53-59 10:37:0076.1[facility] QfhvbyaMFNQALUGZF6824-03-00 10:37:00 Test Item Value Reference Range Interpretation Comments MCH (test code = MCH) 23.8 pg 27.0-31.0 [facility] WfeykukTYCONAFUUD8656-10-90 10:37:0031.3[facility] HermannHEMATOLOGY 2020-08-29 10:37:0018.2[facility] SayyizdDOCSKBKYIX9449-68-28 10:37:89358Ueszuafy BpulqqqXGTYPACKID7233-73-06 10:37:007.5[facility] SolwygbMOSNAQFCYF8743-13-00 10:37:00 Test Item Value Reference Range Interpretation Comments PT (test code = PT) 12.8 s 12.0-14.7 [facility] OtsdqbuFZIOPTOPSF8364-39-42 10:37:00 Test Item Value Reference Range Interpretation Comments INR (test code = INR) 0.97 1 0.85-1.17 [facility] EwwyafxSRLPXAPLKO2170-44-25 10:37:00 Test Item Value Reference Range Interpretation Comments PTT (test code = PTT) 25.0 s 22.9-35.8 [facility] MgugvlcNJVAPUNGEA9933-53-10 10:37:0070.5[facility] HermannHEMATOLOGY 2020-08-29 10:37:0018.8[facility] TyesvmcJFBTFTYAWT0316-99-73 10:37:009.5[facility] NctokutIDXIAZBALX2749-20-46 10:37:000.9[facility] GtkhqbhHSOTOYYCFY7200-35-82 10:37:000.3[facility] SnrqwtaPOEIRURCUI2239-95-19 10:37:004.8[facility] Marty XSNQFVTTVQ2905-16-23 10:37:001.3[facility] GvxpqdaKIIVHOICLG3709-86-91 10:37:000.6 Memorial FqhtllmERCCXZJPQR8949-62-19 10:37:000.1[facility] HermannHEMATOLOGY 2020-08-29 10:37:001+ *ABN*(08/29/20 5:37 AM)[facility] YhvnoozVSNLKOPNKC4242-39-80 10:37:00Not Detected (08/29/20 5:37 AM)[facility] HermannBLOOD BANK RESULTS 2020-08-29 10:37:00Negative (08/29/20 5:37 AM)[facility] HermannCHEM SDLUC8508-32-68 10:37:91526Nbvmhuvn HermannCHEM LXMKT2519-88-28 10:37:0028[facility] HermannCHEM PUJUQ4756-09-13 10:37:001.01[facility] HermannCHEM OVBHS6774-87-85 10:37:33282 [facility] HermannCHEM XVGTI2056-06-22 10:37:003.8[facility] HermannCHEM PANEL 2020-08-29 10:37:35331Qufbvznd HermannCHEM BHOXU9055-30-52 10:37:0028[facility] HermannCHEM NDWMT4466-01-27 10:37:009.8[facility] HermannCHEM BRIGU5380-97-71 10:37:0011.8[facility] HermannCHEM ECPPG3286-76-62 10:37:0059[facility] HermannCHEM FVJLJ5032-37-93 10:37:002.9[facility] EnhiczjXYMIJOTTBM6986-32-35 10:37:006.8 Memorial DtlinzhADIVGDPPQP3207-89-73 10:37:004.47[facility] HermannHEMATOLOGY 2020-08-29 10:37:0010.6[facility] NxodcdlXNGERWPREH9394-26-88 10:37:0034.0[facility] JsgkwnrZMRRFWAFHA2649-79-14 10:37:0076.1[facility] NovzmrcDPUKUQMUDT7540-38-38 10:37:00 Test Item Value Reference Range Interpretation Comments MCH (test code = MCH) 23.8 pg 27.0-31.0 [facility] DmggskeHVXZDJUSCN2782-46-52 10:37:0031.3[facility]annHEMATOLOGY 2020-08-29 10:37:0018.2[facility] IxurdxnAZTRSOHYWS7654-43-52 10:37:89635Plqxplox IpvdndiFYXZLEGGEC7532-92-56 10:37:007.5[facility] BstdciyORYWYHSWHM0101-38-88 10:37:00 Test Item Value Reference Range Interpretation Comments PT (test code = PT) 12.8 s 12.0-14.7 [facility] ExtwlwpFJBHELCXBK0880-07-42 10:37:00 Test Item Value Reference Range Interpretation Comments INR (test code = INR) 0.97 1 0.85-1.17 [facility] XxxjadnUHVXWEHFTY0909-82-03 10:37:00 Test Item Value Reference Range Interpretation Comments PTT (test code = PTT) 25.0 s 22.9-35.8 [facility] VjzmqndPGPRYUDNZZ1558-12-84 10:37:0070.5[facility]annHEMATOLOGY 2020-08-29 10:37:0018.8[facility] KxmjhduQRXHKTQQPE4782-66-68 10:37:009.5[facility] HbxvjsyZPBUMDKLPI8708-59-51 10:37:000.9[facility] HaovieuBTIGUZIBJP6055-79-44 10:37:000.3[facility] MijoberVOYOYMEVDV8432-76-57 10:37:004.8[facility] WLYKFSBSGW5285-72-36 10:37:001.3[facility] JxbiwraPMCTUSZVCJ5772-82-83 10:37:000.6 [facility] FzgnzknEGBGTKMWJX1399-61-50 10:37:000.1[facility]annHEMATOLOGY 2020-08-29 10:37:001+ *ABN*(08/29/20 5:37 AM)[facility] IduollsFFNPVKKXLK8573-37-30 10:37:00Not Detected (08/29/20 5:37 AM)[facility]annBL[facility] BANK RESULTS 2020-08-29 10:37:00Negative (08/29/20 5:37 AM)[facility]annCHEM UQMWC4747-32-35 10:37:88469Eaiagayr HermannCHEM AOGBZ1345-41-64 10:37:0028[facility] HermannCHEM NZASE2221-07-49 10:37:001.01[facility] HermannCHEM KSVQS0491-55-40 10:37:96285 [facility]annCHEM ZTMEF8259-09-67 10:37:003.8[facility]annCHEM PANEL 2020-08-29 10:37:00112Bzavmnbq HermannCHEM UTMPT9520-31-96 10:37:0028[facility] HermannCHEM KBJMX9011-78-87 10:37:009.8[facility] HermannCHEM MWQIY4052-53-89 10:37:0011.8[facility] HermannCHEM SNUMH5294-61-53 10:37:0059[facility] HermannCHEM CZOGS1471-27-00 10:37:002.9[facility] BfnvkeoKBOUGCAVGI8033-67-34 10:37:006.8 [facility] BuonwciXRQJBXOSLU6877-08-45 10:37:004.47[facility]annHEMATOLOGY 2020-08-29 10:37:0010.6[facility] IplnfsqUGOJGKAWGG6283-69-74 10:37:0034.0[facility] VygofqjLXFUJGRKVS7991-14-32 10:37:0076.1[facility] EhehdeoYCUJLXUXAH3904-57-90 10:37:00 Test Item Value Reference Range Interpretation Comments MCH (test code = MCH) 23.8 pg 27.0-31.0 [facility] BeqnhmyAEHDEDTKXE7358-38-55 10:37:0031.3[facility]annHEMATOLOGY 2020-08-29 10:37:0018.2[facility] HdlixszAODEVDZQDQ9598-81-45 10:37:08819Wlmnqhhx WztfpugLVGQIOBZRP4644-33-74 10:37:007.5[facility] AwpxkjsEGYKDBNJNJ6951-78-44 10:37:00 Test Item Value Reference Range Interpretation Comments PT (test code = PT) 12.8 s 12.0-14.7 [facility] QkjlqqaHLGEKVOYGX7649-98-30 10:37:00 Test Item Value Reference Range Interpretation Comments INR (test code = INR) 0.97 1 0.85-1.17 [facility] NkzyjggRCYPWDBDUN5711-71-28 10:37:00 Test Item Value Reference Range Interpretation Comments PTT (test code = PTT) 25.0 s 22.9-35.8 [facility] KdltqayCOXDJMVFCC1296-62-22 10:37:0070.5[facility] HermannHEMATOLOGY 2020-08-29 10:37:0018.8[facility] UmplsvhCCWVFDJHFP6985-43-90 10:37:009.5[facility] MxrsfggIXOSLJKGOW3254-61-80 10:37:000.9[facility] AttnxjsESQBIUWHJU9208-08-89 10:37:000.3[facility] StlbmsmBWHDJJIGQE9947-89-98 10:37:004.8[facility] Marty DDJRFVRWAQ8368-88-75 10:37:001.3[facility] CbjlmkuSEJJKRPTRI8958-01-95 10:37:000.6 [facility] DkwqvllRYRRVLECZY9679-50-15 10:37:000.1[facility] HermannHEMATOLOGY 2020-08-29 10:37:001+ *ABN*(08/29/20 5:37 AM)[facility] XwkbmzgCDSNJQKEBS3306-90-33 10:37:00Not Detected (08/29/20 5:37 AM)[facility] HermannBLOOD BANK RESULTS 2020-08-29 10:37:00Negative (08/29/20 5:37 AM)[facility] HermannCHEM EWNPZ8467-18-67 10:37:44636Cidurmjb HermannCHEM NUGJH2693-25-18 10:37:0028[facility] HermannCHEM VXHLM2990-68-66 10:37:001.01[facility] HermannCHEM FSEWB6271-97-33 10:37:60548 [facility] HermannCHEM JBXVY1731-40-38 10:37:003.8[facility] HermannCHEM PANEL 2020-08-29 10:37:25095Gfceqeie HermannCHEM UUKOO6024-47-40 10:37:0028[facility] HermannCHEM PIPSW5304-97-42 10:37:009.8[facility] HermannCHEM HFLFQ2566-02-41 10:37:0011.8[facility] HermannCHEM KKPOX4938-24-42 10:37:0059[facility] HermannCHEM UMFYB3855-67-96 10:37:002.9[facility] XmqeybpDVYIHXJOLL8806-20-03 10:37:006.8 [facility] NnjbjoqTDRGVTGHQT2890-36-63 10:37:004.47[facility] HermannHEMATOLOGY 2020-08-29 10:37:0010.6[facility] PcrdrrfNTMLBAFAQU0953-32-53 10:37:0034.0[facility] HbeufsoVHURKBVEED6774-84-75 10:37:0076.1[facility] TxukocbXLYQBSFZKC6470-80-31 10:37:00 Test Item Value Reference Range Interpretation Comments MCH (test code = MCH) 23.8 pg 27.0-31.0 [facility] AzeyfecFLZSPYXKMF1895-90-67 10:37:0031.3[facility] HermannHEMATOLOGY 2020-08-29 10:37:0018.2[facility] TifokgfRVVXPMXQCK7319-79-05 10:37:36415Mpnmvjbp KmwbvkxEJLONGTYHQ5779-00-32 10:37:007.5[facility] PrmeajrYANJDJUVPR9020-64-01 10:37:00 Test Item Value Reference Range Interpretation Comments PT (test code = PT) 12.8 s 12.0-14.7 [facility] ExwremtDZDKHLSOIL9430-84-21 10:37:00 Test Item Value Reference Range Interpretation Comments INR (test code = INR) 0.97 1 0.85-1.17 [facility] JipfshaLSUTACMOXN3662-18-05 10:37:00 Test Item Value Reference Range Interpretation Comments PTT (test code = PTT) 25.0 s 22.9-35.8 [facility] SbywldgZMIKVWPENC8535-08-85 10:37:0070.5[facility] HermannHEMATOLOGY 2020-08-29 10:37:0018.8[facility] QwzfzrpMLZSKKWUZN3362-53-72 10:37:009.5[facility] GafnpdxAWLMGUFZNG6780-46-22 10:37:000.9[facility] UvchjxxBUTWMQQBNX3899-64-54 10:37:000.3[facility] VvqkizaNPYQXAIWPZ1451-86-14 10:37:004.8[facility] Roff USMMNNYKXH3254-91-27 10:37:001.3[facility] BmyjeidDEWCYWCEPR5889-38-99 10:37:000.6 [facility] KkrqgqpFBVDTMTFKT0559-71-54 10:37:000.1[facility] HermannHEMATOLOGY 2020-08-29 10:37:001+ *ABN*(08/29/20 5:37 AM)[facility] DujfvmwRBJCAQWDMV9084-00-84 10:37:00Not Detected (08/29/20 5:37 AM)[facility] HermannBLOOD BANK RESULTS 2020-08-29 10:37:00Negative (08/29/20 5:37 AM)[facility] HermannCHEM JZOVV0496-43-90 10:37:79812Sohekkur HermannCHEM INEZN1990-44-82 10:37:0028[facility] HermannCHEM PVZAO8523-72-35 10:37:001.01[facility] HermannCHEM DQDND0034-76-97 10:37:56892 [facility] HermannCHEM VMFOR7518-72-39 10:37:003.8[facility] HermannCHEM PANEL 2020-08-29 10:37:78749Sfsflwgw HermannCHEM UDKFI8026-61-17 10:37:0028[facility] HermannCHEM UBIKP8663-49-62 10:37:009.8[facility] HermannCHEM QPEHJ7918-69-22 10:37:0011.8[facility] HermannCHEM DSXBF5886-04-84 10:37:0059[facility] HermannCHEM DNZWF5275-51-75 10:37:002.9[facility] EgchgzxLWUDPCONZC8502-49-41 10:37:006.8 [facility] XyzbfwaWVMZSPGGKN5932-21-34 10:37:004.47[facility] HermannHEMATOLOGY 2020-08-29 10:37:0010.6[facility] TrhmntkSZZDTIEUCH7935-23-51 10:37:0034.0[facility] BrecadsXWGHOHKTIK4285-11-98 10:37:0076.1[facility] SirawiuPEDDZTOXKT3820-90-94 10:37:00 Test Item Value Reference Range Interpretation Comments MCH (test code = MCH) 23.8 pg 27.0-31.0 [facility] DhwohcwMECDFXVJPH9562-42-82 10:37:0031.3[facility] HermannHEMATOLOGY 2020-08-29 10:37:0018.2[facility] KwnpapxXOASTWLQYT4788-20-09 10:37:92426Hvtbsyuu CxzdpbwSWSKABIFRF8403-27-53 10:37:007.5[facility] UxickypWEAQSWFUGI5406-04-28 10:37:00 Test Item Value Reference Range Interpretation Comments PT (test code = PT) 12.8 s 12.0-14.7 [facility] UjzbkrgZYJBAWSCON5172-21-78 10:37:00 Test Item Value Reference Range Interpretation Comments INR (test code = INR) 0.97 1 0.85-1.17 [facility] UophdseELMTGBRRAY0541-52-41 10:37:00 Test Item Value Reference Range Interpretation Comments PTT (test code = PTT) 25.0 s 22.9-35.8 [facility] JtznupvBMSHIBOLWA6885-00-95 10:37:0070.5[facility] HermannHEMATOLOGY 2020-08-29 10:37:0018.8[facility] FlpywkbUWXMMVUXAK3434-17-84 10:37:009.5[facility] VintbjcHTIBHQFKDF0462-22-15 10:37:000.9[facility] GdjtanuASXCGMDBPI2332-72-03 10:37:000.3[facility] WsprgypMKXBZGZLJC7659-98-04 10:37:004.8[facility] Marty EEJXMPUOQP3611-28-81 10:37:001.3[facility] NnhobihQOPBBVGSAX9554-91-91 10:37:000.6 [facility] XlnbaucHRAHJHQYHS9477-17-89 10:37:000.1[facility] HermannHEMATOLOGY 2020-08-29 10:37:001+ *ABN*(08/29/20 5:37 AM)[facility] ZxxkqhhSGTZQRUFEN0758-93-14 10:37:00Not Detected (08/29/20 5:37 AM)[facility] HermannBLOOD BANK RESULTS 2020-08-29 10:37:00Negative (08/29/20 5:37 AM)[facility] HermannCHEM TNGNE7668-45-00 10:37:81839Ldgsumti HermannCHEM SYZQL6808-78-89 10:37:0028[facility] HermannCHEM YRSCC0258-60-04 10:37:001.01[facility] HermannCHEM ZAFZU7765-59-83 10:37:26360 [facility] HermannCHEM IACZR2375-54-93 10:37:003.8[facility] HermannCHEM PANEL 2020-08-29 10:37:63382Uptyflfb HermannCHEM RSDII4144-00-07 10:37:0028[facility] HermannCHEM ZBXQA7367-05-74 10:37:009.8[facility] HermannCHEM LXYZP5982-67-61 10:37:0011.8[facility] HermannCHEM TXNGD9563-82-97 10:37:0059[facility] HermannCHEM TGOHZ2246-52-91 10:37:002.9[facility] ZnnqnjwUCFNCVOCUP4543-82-29 10:37:006.8 [facility] ApqwjgwRMSUMKVNMM9662-06-67 10:37:004.47[facility] HermannHEMATOLOGY 2020-08-29 10:37:0010.6[facility] MczrgplYSIYEBBMRW6283-12-48 10:37:0034.0[facility] PhsjtwmCIAVCCNTZM2457-48-77 10:37:0076.1[facility] JorflabFAYRBAQGJT8669-48-16 10:37:00 Test Item Value Reference Range Interpretation Comments MCH (test code = MCH) 23.8 pg 27.0-31.0 [facility] OkfcogrFGJLFCTIZO6057-18-76 10:37:0031.3[facility] HermannHEMATOLOGY 2020-08-29 10:37:0018.2[facility] LjwemowUGFLULNYIW3680-40-32 10:37:01469Fzpqjzcx UfhwooaJMPMXBPFDR4335-63-78 10:37:007.5[facility] ZdmarwaZDZMVHYOZI1694-51-05 10:37:00 Test Item Value Reference Range Interpretation Comments PT (test code = PT) 12.8 s 12.0-14.7 [facility] OqfmucfSDZKYNAVIX7124-81-19 10:37:00 Test Item Value Reference Range Interpretation Comments INR (test code = INR) 0.97 1 0.85-1.17 [facility] YouocigJTCWOFOIAP2498-44-45 10:37:00 Test Item Value Reference Range Interpretation Comments PTT (test code = PTT) 25.0 s 22.9-35.8 [facility] JpquufdMVDGCBNMHO0951-79-18 10:37:0070.5[facility] HermannHEMATOLOGY 2020-08-29 10:37:0018.8[facility] SiddlasUKRMLZTSTU6931-29-11 10:37:009.5[facility] TjgekfnQZCAXHECEK5229-16-59 10:37:000.9[facility] TdenqlnVTRCRAOTAH5064-61-96 10:37:000.3[facility] CadrppsIMRBXKDAIB2556-76-76 10:37:004.8[facility] Roff UZJJEORQNG8845-72-24 10:37:001.3[facility] MwsgyjvRUKAOUTMXI4340-56-16 10:37:000.6 [facility] BnxjxxrVCOGURDRQR4338-45-85 10:37:000.1[facility] HermannHEMATOLOGY 2020-08-29 10:37:001+ *ABN*(08/29/20 5:37 AM)[facility] DydjnujAPBABXKTMX7446-70-83 10:37:00Not Detected (08/29/20 5:37 AM)[facility] Gastric Emptying 2020-08-27 23:14:39PROCEDURE: NM GASTRIC EMPTYING [...] rate, with complete emptying by 4 hours. [facility]-[id number] Interface, Radiology Results - 08/27/2020 6:17 PM [...] rate, with complete emptying by 4 hours. [facility]-[id number] [facility] referral test 2020-05-09 21:24:58 Test Item Value Reference Range Interpretation Comments Misc test HIV-1 RNA QUAL PCR name (test code = 2566) Misc test see note Human Immunodef iciency result (test Virus 1 (HIV-1) by code = 1730) Qualitative Research Neuropsychologist-M ediated Amplification ( TMA) [facility] test code 1581584 HIV-1 by Qualit ative TMA See Note SOURCE/SPECIMEN PLASMA HIV-1 RNA, QUAL ITATIVE TMA HIV-1 RNA, QL TMA T RESEARCH SCHOLAR Test Not Performed. Initial testing necessi tated a repeat, but the re was insufficient sa mple to perform repeat. SAMPLE LEFT FOR REPEAT IS 50 uL. NEED 1000 u L TO RUN REPEAT. This te st was performed using the APTIMA(R) HIV-R NA Qualitative Ass ay (Gen-Probe). ======== ======== Te st performed by:[address] [place] [id number] KYLE (test HIVQL - HIV-1 RNA, code = KYLE) Qualitative TMA (FROZEN)[facility] Test Code: 1628818Aduwsm: plasma Tenriism StephaniUs duplex venous upper qccdphgpo3112-39-64 04:57:00 Vascular Ultrasound Laboratory Upper Extremity Venous Report [id number] [address] Pat.Name: LIO WATTS.ID: [id number] St.Date: 04/30/2020 Refer.MD: ELISEO ARCE MD Exam Time: 5:04:00 PM Study Type:UE Venous Age: 9 1955,65Y Sex: FEMALE Sonogrphr: IBIS Espinosa, SANKET Pat. Stat.:Inpatient Room: [facility] WT20 2020 Tape Vol: JM, CPT - 4: 53253 Echo Event ID:[id number] Order ID: [id number] Reason for Study:Arm swelling or pain, DVT [...] veins.*Preliminary result reported to ASHLEY Santos @ 9142 on 04/30/20.PHYSICIAN INTERPRETATION Venous examination of the both upper extremities and neck demonstratedno evidence of deep venous thrombosis. Total superficial vein thrombosis of the right basilic vein. FINDINGS: Signed 04/30/2020 10:57 PMFrancis Cabral MD, RPVIInterface, Radiology Results In - 04/30/2020 10:58 PM CST [facility] Ultras[facility] Upper Extremity Venous Report [id number] [address] Pat.Name: LIO WATTS Pat.ID: [id number] .Date: 04/30/2020 Refer.MD: ELISEO ARCE MD Exam Time: 5:04:00 PM Study Type:UE Venous Age: 9 1955,65Y Sex: FEMALE Sonogrphr: Dwayne Macias, RVS, RCS Pat. Stat.:Inpatient Room: [place] [address] 2020 Tape Vol: , CPT - 4: 56614 Echo Event ID:[id number] Order ID: [id number] Reason for Study:Arm swelling or pain, DVT [...] veins.*Preliminary result reported to ASHLEY Santos @ 8070 on 04/30/20.PHYSICIAN INTERPRETATION Venous examination of the both upper extremities and neck demonstratedno evidence of deep venous thrombosis. Total superficial vein thrombosis of the right basilic vein. FINDINGS: ------Signed 04/30/2020 10:57 PMFrancis Cabral MD, [facility]XR Chest 2 Jv6870-93-65 22:21:01EXAMINATION: XR CHEST 2 VW CLINICAL HISTORY: [...] process or active disease of the chest.[id number] HospitalMidline Unsuccessful Asvonht3577-98-75 17:14:34ANicole zhang RN 04/30/2020 11:25 AMMidline Unsuccessful [...] to advance completely . Procedure aborted and ASHELY Valdivia able to place a PIV g.20 in lower arm .[facility] Abdomen 1 Vw Kiahfpci5134-33-71 16:20:14EXAMINATION: XR ABDOMEN 1 VW PORTABLE CLINICAL HISTORY: Abdominal pain post op COMPARISON: No prior IMPRESSION:1.Residual barium within the colon throughout. No small bowel obstruction noted. [facility]-2U [id number] Interface, Radiology Results Incoming - 04/30/2020 10:23 AM CST EXAMINATION: XR ABDOMEN 1 VW PORTABLECLINICAL HISTORY: Abdominalpain post opCOMPARISON: No priorIMPRESSION:1.Residual barium within the colon throughout. No smallbowel obstruction noted.[facility]-[id number] OlkhpqbpFontgu8379-96-25 20:57:57Carlee Malloy MD 04/28/2020 2:59 PMAirwayPerformed by: Carlee Malloy MDAuthorized by: Carlee Malloy MD Location: ORUrgency: ElectiveDifficult Airway: No Anesthesiologist: Kvng Malloy MDResident/UNDERWEAR WELTER/AA: Allan Morocho DOPerformed by: resident/UNDERWEAR WELTER/AAPreoxygenated jihd858% O2: Yes C- spine Precautions Maintained Throughout: [...] No Number of Attempts at Approach: 1 [facility] DallasTransthoracic Echocardiogram Complete, (w Contrast, Strain and 3D if needed)2020-04-28 00:20:00 Echocardiography Report [address] [place] [address].Name: LIO WATTS [facility].ID: [id number] .Date: 04/27/2020 Refer.MD: ELISEO ARCE MD Exam Time: 2:21:00 PM Study Type:Routine Echo Height: 64in Weight: 213lb BSA: 2.01 m2 Age: 9 1955,65Y Sex: FEMALE BP: 128/89 HR: 102 bpm Sonogrphr: SANKET Perkins Pat. Stat.:Inpatient [facility]: [facility] Study Status:Final Echo Event ID:[id number] Order ID: [id number] Reason for Study:Atrial FibrillationHistory / Clinical:Hypertension Procedures: [...] estimate PA systolic pressure. MEASUREMENTS: 2DParasternal [place] Ao An 2.2 cm LVPWd 1 [...] LVOT CI 3.1 l/m/m2 Signed 04/27/2020 06:20 Judy Martin MDInterface, Radiology Results In - 04/27/2020 6:21 PM CST Echocardiography Report [address] [place] [address], [address]Name: LIO WATTS.ID: [id number] .Date: 04/27/2020 Refer.MD: ELISEO ARCE MD Exam Time: 2:21:00 PM Study Type:Routine Echo Height: 64in Weight: 213lb BSA: 2.01 m2 Age: 9 1955,65Y Sex: FEMALE BP: 128/89 HR: 102 bpm Sonogrphr: SANKET [place] Pat. Stat.:Inpatient Room: [facility] Study Status:Final Echo Event ID:[id number] Order ID: [id number] Reason for Study:Atrial FibrillationHistory / Clinical:Hypertension Procedures: [...] PA systolic pressure.- MEASUREMENTS: ---- 2DParasternal [place] Ao An 2.2 cm LVPWd 1 [...] LVOT CI 3.1 l/m/m2 Signed 04/27/2020 06:20 PMMolex[facility] medical center MarielyNicoH[facility] Esophagram Double Jkhwqcpx1531-08-40 18:07:12EXAMINATION: FL ESOPHAGRAM DOUBLE CONTRAST CLINICAL HISTORY: [...] herniaCOMPARISON: [facility]TECHNIQUE: Esophagram was performed with effervescent granules and barium.FLUOROSCOPIC TIME: 1.5 minutes.NUMBER OF IMAGES: 9 fluoroscopic images.IMPRESSION:No strictures. Normal esophageal mucosa.Nonspecific esophageal dysmotility, with mildly delayed esophageal emptying and scatterednonpropulsive tertiary contraction waves.There is a moderately sized type III hiatal hernia. There was mild spontaneous gastroesophageal reflux.[id number] Contrast Abdomen Wo Contrast Pelvis Wo Uaqcgpsh7459-63-94 15:23:55EXAMINATION: CT CHEST WO CONTRAST ABDOMEN WO [...] chronic and incidental findings as detailed above. [facility]-[id number] Dictated and approved by radiology resi dent/fellow: Jenna Valenzuela M.D. I, Medhat Flowers Jr., M.D., personally reviewed the images and resident's/fellow's findings and agree with the final report.[facility], Radiology Results Incoming - 04/21/2020 9:27 [...] aorta.4.Additional chronic and incidental findings as detailed above.[facility]-[id number] and approved by residential energy auditor/fellow: Stefani Freeman, Medhat Flowers Jr., M.D., personally reviewed the images and resident's/fellow's findings and agree with the final report. Tenriism [facility] Fork HospitalSADIE KOWALSKI, TV,PCR, IN [id number] 15:38:00 Test Item Value Reference Range Interpretation Comments FT (test code = CHTR) Not detected (qualifier Not Detected N value) FT (test code = Not detected (qualifier Not Detected N NGONO) value) FT (test code = TRVG) Not detected (qualifier Not Detected N value) URINALYSIS WITH [id number] 10:57:00 Test Item Value Reference Range Interpretation Comments Color (test code = UCOLR) Dk. Yellow Clarity (test code = UCLAR) Hazy Glucose (test code = UGLUC) NEGATIVE NEGATIVE N Bilirubin (test code = UBILI) NEGATIVE NEGATIVE N Ketones (test code = UKET) NEGATIVE NEGATIVE N Specific [place] (test code = 1.025 1.005-1.030 A USPGR) [...]
--- NOTE | 2021-07-23 13:38 | RAD REPORT ---
EXAM DESCRIPTION: RAD - Chest Single View - 07/23/2021 1:18 pm CLINICAL HISTORY: SOB COMPARISON: June 25 TECHNIQUE: AP portable chest image was obtained 07/23/2021 1:18 pm . FINDINGS: Lungs are underinflated. No peripheral mass or consolidation. Patient has a mildly promine nt interstitial pattern that has decreased in prominence from comparison. Heart size and central vasc ulature are normal range, decreased from comparison. No measurable pleural effusion and no pneumothor ax. No acute bony abnormality seen. No acute aortic findings suspected. IMPRESSION: No acute cardiopulmonary process. The prominence of the interstitial markings believed be baseline. No significant failure or volume ov erload findings.
[2021-07-23 13:49] LABS: Protime INR 1.21
[2021-07-23 14:10] LABS: BUN Blood Urea Nitrogen 20 mg/dL (7-18); Bicarbonate 27 mmol/L (21-32); Glucose Level 103 mg/dL (74-106); Potassium 3.2 mmol/L (3.5-5.1); Sodium Level 141 mmol/L (136-145)
[2021-07-23 14:29] LABS: SARS-COV-2 RT PCR NEGATIVE (NEGATIVE)
[2021-07-23 15:01] LABS: ALT/SGPT 43 U/L (12-78); AST/SGOT 61 U/L (15-37); Albumin 3.2 g/dL (3.4-5.0); Alkaline Phosphatase 88 U/L (45-117); Bilirubin Total 0.3 mg/dL (0.2-1.0); Magnesium 2.1 mg/dL (1.8-2.4); NT PRO-BNP 961 pg/mL (<125); Protein, Total 7.2 g/dL (6.4-8.2)
[2021-07-23] MEDS ORDERED: MAGNES/ALUMIN/SIMET 30ML UCUP ONE (15:01)
[2021-07-23] MEDS ORDERED: LIDOCAINE VISCOUS 2% SOLN 15 ML UDC ONE (15:01)
[2021-07-23 15:08] LABS: Bilirubin Direct < 0.1 mg/dL (0-0.2)
[2021-07-23] MEDS ORDERED: ONDANSETRON 4 MG/2 ML VIAL ONE (15:08)
--- NOTE | 2021-07-23 16:07 | EDPHYS ---
Physician Documentation [facility] Name: Fawn Fleming Age: 66 yrs Sex: Female : 1955 Arrival Date: 07/23/2021 Time: 11:53 Bed 6 Private MD: Justus Cervantes HPI: 07/23 12:11 This 66 yrs old Female presents to ER via EMS with complaints of Shortness Of Breath, jmm Chest Pain > 30 y/o. 12:11 The patient has shortness of breath at rest. Onset: The symptoms/episode began/occurred jmm gradually, 3 day(s) ago. Duration: The symptoms are continuous. The patient's shortness of breath is aggravated by coughing, is alleviated by nothing. Associated signs and symptoms: Pertinent positives: non-productive cough. This is a 66-year-old female with history of anxiety, atrial fibrillation, bipolar, chronic pain, COPD the presents emerged part with complaints of cough and shortness of breath getting approximately 3 days ago. States symptoms are worsened today. Also complains of a sore throat and pain on swallowing.. Historical: - Allergies: 12:01 Bactrim DS; tw2 12:01 butorphanol tartrate; tw2 12:01 Fentanyl; tw2 12:01 Reglan; tw2 12:01 Stadol; tw2 12:01 sulfamethoxazole (bulk); tw2 12:01 TRIMETHOPRIM; tw2 - PMHx: 12:01 Anxiety; Atrial Fib; Bipolar disorder; Chronic pain; COPD; esophageal varices; tw2 Hepatitis; HIV; Hypertension; Migraines; Panic Attacks; - PSHx: 12:01 Appendectomy; Bilateral shoulder repair; Cholecystectomy; hernia repair; R wrist SX; tw2 - Immunization history:: Adult Immunizations. - Social history:: Smoking status: . ROS: 12:11 Cardiovascular: Negative for chest pain, palpitations, and edema, Respiratory: Negative jmm for shortness of breath, cough, wheezing, and pleuritic chest pain. 12:11 Constitutional: Positive for body aches, chills. 12:11 Cardiovascular: Positive for chest pain, with cough. 12:11 Respiratory: Positive for cough, shortness of breath, wheezing. 12:11 All other systems are negative. Exam: 12:11 Head/Face: atraumatic. Eyes: EOMI, no conjunctival erythema appreciated ENT: Moist [facility] Mucus Membranes Neck: Trachea midline, Supple Chest/axilla: Normal chest wall appearance and motion. Cardiovascular: Regular rate and rhythm. No edema appreciated 12:11 Skin: General appearance color normal MS/ Extremity: Moves all extremities, no obvious deformities appreciated, no edema noted to the lower extremities Neuro: Awake and alert Psych: Behavior is normal, Mood is normal, Patient is cooperative and pleasant 12:11 Constitutional: The patient appears in no acute distress, alert, awake. 12:11 Respiratory: mild respiratory distress is noted, Respirations: labored breathing, that is mild, Breath sounds: wheezing: that is mild, is scattered. Vital Signs: 11:54 BP 153 / 105; Pulse 63; Resp 20; Temp 98.1(O); Pulse Ox 99% on Nebulizer Mask; tw2 12:03 BP 150 / 94; tw2 12:06 Weight 74.84 kg (R); tw2 12:27 BP 141 / 95; Pulse 67; Resp 19; Pulse Ox 96% on R/A; tw2 13:43 BP 126 / 86; Pulse 66; Resp 17; Pulse Ox 97% on R/A; tw2 14:37 BP 145 / 74; Pulse 64; Resp 17; Pulse Ox 97% on R/A; tw2 15:26 BP 167 / 77; Pulse 64; Resp 18; Pulse Ox 98% ; ph 16:28 BP 152 / 76; Pulse 64; Resp 18; Temp 97.9; Pulse Ox 99% on R/A; ph MDM: 12:11 Patient medically screened. thomas 16:05 Data reviewed: vital signs, nurses notes. Counseling: I had a detailed discussion with yas the patient and/or guardian regarding: the historical points, exam findings, and any diagnostic results supporting the discharge/admit diagnosis, lab results, radiology results, the need for outpatient follow up, to return to the emergency department if symptoms worsen or persist or if there are any questions or concerns that arise at home. ED course: Labs and imaging studies are unremarkable or at baseline. Patient is not hypoxic, exhibits no signs of respiratory distress. Patient advised follow-up PCP and otherwise given strict return precautions. Patient understood agrees plan of care.. 07/23 13:00 Order name: Basic Metabolic Panel; Complete Time: 15:34 [facility] 07/23 13:00 Order name: LFT's; Complete Time: 15:34 [facility] 07/23 13:00 Order name: Magnesium; Complete Time: 15:34 [facility] 07/23 13:00 Order name: NT PRO-BNP; Complete Time: 15:34 [facility] 07/23 13:00 Order name: PT-INR; Complete Time: 14:14 [facility] 07/23 13:00 Order name: Troponin HS; Complete Time: 15:34 [facility] 07/23 13:00 Order name: XRAY Chest (1 view); Complete Time: 14:14 [facility] 07/23 13:00 Order name: COVID-19/FLU A+B (Document "Date of Onset" if Symptomatic); Complete Time: [facility] 14:31 07/23 13:01 Order name: Procalcitonin; Complete Time: 14:39 [facility] 07/23 13:01 Order name: Lactate; Complete Time: 14:14 [facility] 07/23 16:22 Order name: Urine Dipstick-Ancillary; Complete [facility]: 16:[facility] 07/23 13:00 Order name: EKG; Complete Time: 13:01 [facility] 07/23 13:00 Order name: Cardiac monitoring; Complete Time: 13:15 [facility] 07/23 13:00 Order name: EKG - Nurse/Tech; Complete Time: 15:17 [facility] 07/23 13:00 Order name: IV Saline Lock; Complete Time: 14:18 [facility] 07/23 13:00 Order name: Labs collected and sent; Complete Time: 14:18 [facility] 07/23 13:00 Order name: O2 Per Protocol; Complete Time: 13:15 [facility] 07/23 13:00 Order name: O2 Sat Monitoring; Complete Time: 13:15 [facility] 07/23 15:50 Order name: Urine Dipstick-Ancillary (obtain specimen); Complete Time: 16:27 [facility] Administered Medications: 15:05 Drug: Zofran (Ondansetron) 4 mg Route: IVP; Site: Other; ph 16:49 Follow up: Response: No adverse reaction tw2 16:10 Drug: Decadron - Dexamethasone 10 mg Route: IVP; Site: Other; ph 16:48 Follow up: Response: No adverse reaction tw2 16:10 Drug: morphine 4 mg Route: IVP; Site: Other; ph 16:48 Follow up: Response: No adverse reaction; Pain is decreased; RASS: Alert and Calm (0) tw2 16:27 Not Given (Patient Refused): GI Cocktail without - (Maalox Suspension 30 ml, ph Lidocaine Liquid 2 % 15 ml) PO once 16:27 Not Given (Other Intervention Used): Zofran (Ondansetron) 4 mg IVP once; over 2 minutes ph Disposition Summary: 07/23/21 16:06 Discharge Ordered Location: Home [facility] Condition: Stable [facility] Diagnosis - COPD/ Chronic obstructive pulmonary disease with (acute) exacerbation [facility] Followup: [facility] - With: Private Physician - When: 2 - 3 days - Reason: Recheck today's complaints, Continuance of care, Re-evaluation by your physician Discharge Instructions: - Discharge Summary Sheet [facility] - Chronic Obstructive Pulmonary Disease Exacerbation [facility] Forms: - Medication Reconciliation Form [facility] - Thank You Letter [facility] - Antibiotic Education [facility] - Prescription Opioid Use [facility] Prescriptions: - cefdinir 300 mg Oral capsule - take 1 capsule by ORAL route every 12 hours for 10 days; 20 capsule; Refills: [facility] 0, Product Selection Permitted Signatures: Dispatcher [employer] EDMS Heydi Caldera Corey, MD MD cha Mickail, Joel, PA PA Solange Ayon RN RN ph Karen Tovar RN RN tw2 Corrections: (The following items were deleted from the chart) 16:27 14:34 Labs - recollect needed ordered. bd ph
--- NOTE | 2021-07-23 16:07 | ER ---
Nurse's Notes [facility] Name: Fawn Fleming Age: 66 yrs Sex: Female : 1955 Arrival Date: 07/23/2021 Time: 11:53 Bed 6 Private MD: Diagnosis: COPD/ Chronic obstructive pulmonary disease with (acute) exacerbation Presentation: 07/23 11:54 Chief complaint: EMS states: pt from home c/o Shortness of Breath that started this tw2 morning along with chest pain. reports productive cough for 3 days. no fever. uses home o2 at 2L, did NOT use albuterol inhaler this morning, so we administered in route. Coronavirus screen: congestion, shortness of breath, Client presents with at least one sign or symptom that may indicate coronavirus-19. Standard/surgical mask placed on the client. Provider contacted for isolation considerations. Ebola Screen: Patient denies travel to an Ebola-affected area in the 21 days before illness onset. Initial Sepsis Screen: Does the patient meet any 2 criteria? No. Patient's initial sepsis screen is negative. Does the patient have a suspected source of infection? No. Patient's initial sepsis screen is negative. Risk Assessment: Do you want to hurt yourself or someone else? Patient reports no desire to harm self or others. Onset of symptoms was July 23, 2021. 11:54 Method Of Arrival: EMS: [facility] tw2 11:54 Acuity: BLAYNE 3 tw2 Triage Assessment: 11:55 General: Appears in no apparent distress. Behavior is calm, cooperative, appropriate tw2 for age. Pain: Denies pain. EENT: No signs and/or symptoms were reported regarding the EENT system. Neuro: Level of Consciousness is awake, alert, obeys commands, Oriented to person, place, time, situation. Cardiovascular: Capillary refill < 3 seconds Patient's skin is warm and dry. Respiratory: Reports shortness of breath at rest on exertion cough that is productive, persistent Onset: The symptoms/episode began/occurred 3 days, the patient has mild shortness of breath. GI: No signs and/or symptoms were reported involving the gastrointestinal system. Musculoskeletal: Range of motion: intact in all extremities. Historical: - Allergies: 12:01 Bactrim DS; tw2 12:01 butorphanol tartrate; tw2 12:01 Fentanyl; tw2 12:01 Reglan; tw2 12:01 Stadol; tw2 12:01 sulfamethoxazole (bulk); tw2 12:01 TRIMETHOPRIM; tw2 - PMHx: 12:01 Anxiety; Atrial Fib; Bipolar disorder; Chronic pain; COPD; esophageal varices; tw2 Hepatitis; HIV; Hypertension; Migraines; Panic Attacks; - PSHx: 12:01 Appendectomy; Bilateral shoulder repair; Cholecystectomy; hernia repair; R wrist SX; tw2 - Immunization history:: Adult Immunizations. - Social history:: Smoking status: . Screenin:05 Abuse screen: Denies threats or abuse. Nutritional screening: No deficits noted. tw2 Tuberculosis screening: No symptoms or risk factors identified. Fall Risk None identified. Assessment: 12:04 Reassessment: see triage assessment. tw2 12:05 Cardiovascular: Rhythm is atrial fibrillation. Respiratory: Airway is patent tw2 Respiratory effort is even, unlabored. 12:27 Reassessment: Patient appears in no apparent distress at this time. No changes from tw2 previously documented assessment. Patient and/or family updated on plan of care and expected duration. Pain level reassessed. Patient is alert, oriented x 3, equal unlabored respirations, skin warm/dry/pink. 13:30 Reassessment: Patient appears in no apparent distress at this time. No changes from tw2 previously documented assessment. Patient and/or family updated on plan of care and expected duration. Pain level reassessed. Patient is alert, oriented x 3, equal unlabored respirations, skin warm/dry/pink. 14:37 Reassessment: Patient appears in no apparent distress at this time. No changes from tw2 previously documented assessment. Patient and/or family updated on plan of care and expected duration. Pain level reassessed. Patient is alert, oriented x 3, equal unlabored respirations, skin warm/dry/pink. 14:45 Reassessment: Patient appears in no apparent distress at this time. Patient and/or ph family updated on plan of care and expected duration. Pain level reassessed. Patient is alert, oriented x 3, equal unlabored respirations, skin warm/dry/pink. Pt c/o pain, states, " It hurt's from my throat down into my chest." Dry cough noted, ERP notified, see MAR. 14:55 Reassessment: Patient appears in no apparent distress at this time. Pt offered GI ph cocktail per provider order, pt states, " I can't drink that, what is it? Barium?" Informed pt that it was a mix of maalox and lidocaine for her throat pain. Pt states, " If I try and drink that I am going to throw up." ERP notified of nausea, see MAR for Zofran order. 16:49 Reassessment: Patient appears in no apparent distress at this time. Patient and/or tw2 family updated on plan of care and expected duration. Pain level reassessed. Patient is alert, oriented x 3, equal unlabored respirations, skin warm/dry/pink. Patient states feeling better. Vital Signs: 11:54 BP 153 / 105; Pulse 63; Resp 20; Temp 98.1(O); Pulse Ox 99% on Nebulizer Mask; tw2 12:03 BP 150 / 94; tw2 12:06 Weight 74.84 kg (R); tw2 12:27 BP 141 / 95; Pulse 67; Resp 19; Pulse Ox 96% on R/A; tw2 13:43 BP 126 / 86; Pulse 66; Resp 17; Pulse Ox 97% on R/A; tw2 14:37 BP 145 / 74; Pulse 64; Resp 17; Pulse Ox 97% on R/A; tw2 15:26 BP 167 / 77; Pulse 64; Resp 18; Pulse Ox 98% ; ph 16:28 BP 152 / 76; Pulse 64; Resp 18; Temp 97.9; Pulse Ox 99% on R/A; ph ED Course: 11:53 Patient arrived in ED. tw2 11:55 Bed in low position. Call light in reach. Side rails up X2. security monitor on. Pulse tw2 ox on. NIBP on. 11:56 Lv Boudreaux PA is PHCP. [facility] 11:56 Justus Kolb MD is Attending Physician. [facility] 12:01 Triage completed. tw2 12:03 Arm band placed on. tw2 13:15 Karen Tovar RN is Primary Nurse. tw2 13:18 XRAY Chest (1 view) In Process Unspecified. EDMS 16:10 Inserted saline lock: 22 gauge in left ,using aseptic technique. breast by ASHLEY Burger. tw2 16:47 No provider procedures requiring assistance completed. IV discontinued, intact, tw2 bleeding controlled, No redness/swelling at site. Pressure dressing applied. Administered Medications: 15:05 Drug: Zofran (Ondansetron) 4 mg Route: IVP; Site: Other; ph 16:49 Follow up: Response: No adverse reaction tw2 16:10 Drug: Decadron - Dexamethasone 10 mg Route: IVP; Site: Other; ph 16:48 Follow up: Response: No adverse reaction tw2 16:10 Drug: morphine 4 mg Route: IVP; Site: Other; ph 16:48 Follow up: Response: No adverse reaction; Pain is decreased; RASS: Alert and Calm (0) tw2 16:27 Not Given (Patient Refused): GI Cocktail without - (Maalox Suspension 30 ml, ph Lidocaine Liquid 2 % 15 ml) PO once 16:27 Not Given (Other Intervention Used): Zofran (Ondansetron) 4 mg IVP once; over 2 minutes ph Outcome: 16:06 Discharge ordered by . [facility] 16:49 Patient left the ED. tw2 16:49 Discharged to home via wheelchair. tw2 16:49 Condition: stable 16:49 Discharge instructions given to patient, Instructed on discharge instructions, follow up and referral plans. medication usage, Demonstrated understanding of instructions, follow-up care, medications, Prescriptions given X 1. Signatures: Dispatcher [employer] EDMS Lv Boudreaux PA PA jmm Hall, Patricia RN RN Karen Bal RN RN tw2 Corrections: (The following items were deleted from the chart) 16:48 16:10 Inserted saline lock: 22 gauge in left ,using aseptic technique. breasts tw2 tw2 19:33 16:49 Discharge instructions given to patient, Instructed on discharge instructions, tw2 follow up and referral plans. medication usage, Demonstrated understanding of instructions, follow-up care, medications, Prescriptions given X 2, tw2
[2021-07-23] MEDS ORDERED: MORPHINE 4 MG/ML SYR ONE (16:14)
[2021-07-23] MEDS ORDERED: dexAMETHasone 10 MG/ML VIAL ONE (16:15)
[2021-07-23 16:22] LABS: Urine Blood Negative (Negative); Urine Glucose Negative (Negative); Urine Protein 1+ (Negative); Urine Specific Gravity >=1.030 (1.005-1.030)
[2021-07-23 17:16] VITALS: BP 152/76; TEMP 97.9; O2SAT 99
--- NOTE | 2021-07-24 11:33 | EKG ---
Test Date: 2021-07-23 Test Time: 13:42:27 [employer] Operator: YAZAN MEASUREMENT RESULTS: Intervals: Rate: 63 AR: 214 QRSD: 94 QT: 440 QTc: 450 Geraldine: P: AR: 214 QRS: 27 T: 41 INTERPRETIVE STATEMENTS: Sinus rhythm with 1st degree AV block Nonspecific ST and T wave abnormality Abnormal ECG Compared to ECG 06/25/2021 12:59:05 First degree AV block now present ST (T wave) deviation still present Electronically Signed On 07-24-21 11:29:18 [employer] by Per Crane
== END 2021-07-23 16:49 | disposition home or self-care (01) ==
LOC: ER 11:49
DX: J44.1 Chronic obstructive pulmonary disease with (acute) exacerbation (principal); I10 Essential (primary) hypertension; Z20.822 Contact with and (suspected) exposure to COVID-19; Z21 Asymptomatic human immunodeficiency virus [HIV] infection status; Z88.1 Allergy status to other antibiotic agents; Z88.2 Allergy status to sulfonamides; Z88.5 Allergy status to narcotic agent
CPT/HCPCS: 93005; 80048; 36415; 83735; 85610; 80076; 83605; 81003; 84484; 84145; 83880; 0240U; 71045; 96375; 96374; 99284; J1100; J2405

== ENCOUNTER 2021-08-08 18:50 | Emergency (ER) | payer OTHER ==
[2011-12-26 14:45] VITALS: BP 143/96
--- OUTSIDE RECORDS SUMMARY | 2021-08-08 19:15 | XMS REPORT | Continuity of Care Document ---
:1955 Author Organization [facility] t Address [address] [place] [address] Care Team Providers Name Role Phone Francisco Rahman Primary Care Physician Ashely Attending Clinician Unavailable PANKAJ Attending Clinician Unavailable Ap JENKINS Attending Clinician Doctor Unassigned, Name Attending Clinician Unavailable Ronald DHILLON Attending Clinician Prabhu SANCHEZ Attending Clinician Unavailable Luisana Maharaj NP Attending Clinician Yazmin JENKINS Attending Clinician [facility] Attending Clinician Unavailable Devin LINER REPLACER, R Attending Clinician Clark SANCHEZ Attending Clinician [...] Number Effective Date Expiration Date S gabino [facility] [id number] 2012 [employer] 00:00:00 Problems Condition Condition Condition Status Onset Resolution Last Treating Co mments Source Name Details Category Date Date Treatment Clinician Date Gastropare Gastropare Disease Active Overview : Methodi sis sis 4-[address] 00:00: [facility] this [facility] 00 note l might be different from the original. Added automatic ally from request for surgery [id number] Dysphagia Dysphagia Disease Active Overview: Methodi 4-[address] 00:00: [facility] of this [facility]osp[facility] 00 note l might be different from the original. Added automatic ally from request for surgery [id number] CCL / EPS Diagnosis Active 2020-10-15 Memoria PVI 3-30 17:07:00 l ABLATION CCL / 00:00: Marty W/ CARTO / EPS PVI 00 GA / T ABLATION W/ CARTO / GA / T Active 08/19/2020 [facility] Food Food Disease Active 2019-05 Methodi intoleranc [...] 2-19 ity of 30-39.9) 30-39.9) 00:00: [place] [facility] Anemia Anemia Disease Active 2014-05 Univers 0-03 ity of 00:00: [place] [facility] Hypovolemi Hypovolemi Disease Active 2014-05 U nivers a due to a due to 0-02 ity of hemorrhage hemorrhage 00:00: [place] [facility] Chest pain Chest pain Disease Active 2014-05 U nivers 0-02 ity of 00:00: [place] [facility] 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:00: [place] shoulder shoulder 00 Medica l arthroplas arthroplas Br anch ty ty Posttrauma Posttrauma Disease Active U nivers tic stress tic stress 08 it y of disorder disorder 00:00: [place] [facility] 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 00:00: [place] virus virus 00 Medical (HIV) (HIV) Branch disease disease Bipolar 2 Bipolar 2 Disease Active Uni vers disorder disorder 11-18 ity of 00:00: [place] [facility] Chronic Chronic Disease Active Univers hepatitis hepatitis 11-18 ity of C C 00:00: [place] [facility] Hypertensi Hypertensi Disease Active U nivers on on 11-18 ity of 00:00: [place] 00 Medical Branch Allergies, Adverse Reactions, Alerts Allergy Allergy Status Severity Reaction(s) Onset Inactive Treating Comm ents Source Name Type Date Date Clinician sulfamet DA Active SV N/V [facility] hoxazole 1-25 Clear 00:00: Garcia 00 [facility] trimetho DA Active SV [facility] prim 1-25 Clear 00:00: Garcia 00 [facility] codeine DA Active SV N/V [facility] 1-25 Clear 00:00: Garcia 00 [facility] Metoclop Propensi Active [place] ramide ty to [...] Stop Date Source Natural father Diabetes [facility] Natural father Other - see comments [facility] Natural father Coronary Heart Univer [facility] Disease [facility] Natural father Hypertension [facility] Natural father Kidney disease Method [facility] Natural mother Cancer [facility] Social History Social Habit Start Date Stop Date Quantity Comments Source History [facility] Health Alcohol Comment History [facility] Health Alcohol Std Drinks Exposure to Not sure [facility] SARS-CoV-2 (event) History [facility] Alcohol Binge History of tobacco Smoker Method ist use Hospital Alcohol intake 2021-07-14 2021-07-14 Ex-drinker [facility] 00:00:00 00:00:00 (finding) Cigarettes smoked 2020-12-08 2020-12-[address] current (pack per 00:00:00 00:00:00 Hospita l day) - Reported Cigarette 2020-12-08 2020-12-08 [facility] pack-[facility] 00:00:00 00:00:00 Hospital Tobacco use and [...] Source Former smoker 2020-12-08 00:00:00 2020-12-08 00:00:00 [facility] Medications Ordered Filled Start Stop Current Ordering Indication Dosage Frequency Signature Comments Components Source Medication Medication Date Date Medication? Clinician (SIG) Name Name raltegravir Yes 400mg Q.5D Take 400 U T (Isentress) 2-22 mg by Health 400 MG 09:09: mouth 2 tablet 52 (two) times a day. LORazepam 1 2021- No [id number] 1mg Take 1 Univers mg tablet 2-21 03-16 tablet by ity of 00:00: 00:00 mouth 3 [place] 00 :00 (three) Medical times Branch daily as needed (anxiety). promethazin Yes 25mg Q.5D Take 25 mg UT e 2-08 by mouth 2 Health (Phenergan) 00:00: (two) 25 MG 00 times a tablet day. furosemide Yes 40mg Q.5D Take 40 mg U T (Lasix) 40 2-08 by mouth 2 Hea lth MG tablet 00:00: (two) 00 times a day. buPROPion Yes [id number] 150mg Take 1 U nivers XL 1-24 tablet by ity of (WELLBUTRIN 00:00: mouth [place] XL) 150 mg 00 daily. Medical 24 hr Branch tablet busPIRone Yes [id number] 30mg Take 1 Un matt 30 mg 1-24 tablet by ity of tablet 00:00: mouth 2 [place] 00 (two) Medical times Branch daily. SERTraline Yes [id number] 200mg Take 2 Univers 100 mg 1-24 tablets by ity of tablet 00:00: mouth [place] 00 daily. Medical Branch LORazepam 1 2021- No [id number] 1mg Take 1 Univers mg tablet 1-24 02-21 tablet by ity of 00:00: 00:00 mouth 3 [place] 00 :00 (three) Medical times Branch daily as needed (anxiety). emtricitabi Yes [id number] Take one Univers ne-tenofovi 1-20 po daily ity of r alafen 00:00: [place] (DESCOVY) 00 Medical tablet Branch raltegravir Yes [id number] 400mg Take 1 Univers (ISENTRESS) 1-12 tablet by ity of 400 mg 00:00: mouth 2 [place] tablet 00 (two) Medical times Branch daily. metoprolol Yes [id number] Take 1 UT tartrate 7-26 tablet Health (Lopressor) 00:00: (100 mg 100 MG 00 total) by tablet mouth 2 (two) times a day AND 0.5 tablets (50 mg total) every night. metoprolol Yes [id number] Take 1 UT tartrate 7-26 tablet Health (Lopressor) 00:00: (100 mg 100 MG 00 total) by tablet mouth 2 (two) times a day AND 0.5 tablets (50 mg total) every night. raltegravir Yes 400mg Q.5D Take [address] [facility] 7-23 mg by Health 400 MG 08:03: [...] a day. (affected area in groin) hydrALAZINE 2021-0 Yes 50mg Q.[id number] Take 50 mg Methodi (APRESOLINE 7-[id number] mouth [address] ) 50 MG [...] Hospita tablet 25 daily. l nystatin-tr Yes [id number] Apply to [facility] 11-25 area(s) 3 ity of cream 00:00: (three) [place] 00 times Medical daily. Branch budesonide- 2020- No 1{puff} QD Inhale 1 Methodi formoteroL 6-25 06-[address] (SYMBICORT) 19:37: 00:00 morning. H ospita 160-4.5 02 :00 l mcg/actuati on inhaler hydrALAZINE Yes [id number] 50mg Q.[id number] Take 1 UT (Apresoline 6-11 [id number] tablet (50 Health ) 50 MG 00:00: 3D mg total) tablet 00 by mouth 3 (three) times a day. hydrALAZINE 0 Yes [id number] 50mg Q.[id number] Take 1 UT (Apresoline 10-31 [id number] tablet (50 Health ) 50 MG 00:00: 3D mg total) tablet 00 by mouth 3 (three) times a day. Breztri 0 Yes UT Aerosphere 10-29 Health [...] 5-30 Health tablet 00:00: 00 sertraline 2020-0 2021- No 200mg 200 mg. UT (Zoloft) 5-30 -22 Health 100 MG 00:00: 00:00 tablet 00 :00 mupirocin 2020-0 Yes UT (Bactroban) 5-28 Health 2 % 00:00: ointment 00 mupirocin 2020-0 Yes UT (Bactroban) 5-28 Health 2 % 00:00: ointment 00 nystatin 0 2020- No [id number] Q.25D Take 5 mL Methodi (MYCOSTATIN 17 10-21 (500,000 st ) 100,000 00:00: 04:59 Units [...] times a day for 30 days. esomeprazol 2021-0 2021- No 40mg Q.5D Take 40 mg Methodi e (NexIUM) 09-[address] 40 MG 13:54: 00:00 (two) Hospita capsule 18 :00 times a l day. LORAZepam No 2mg QD Take 2 mg Me thodi (ATIVAN) 2 09-01-[address] MG tablet 13:51: 00:00 every Hospit a 15 :00 morning. l busPIRone No 20mg QD Take 20 mg M ethodi (BUSPAR) 10 09-[address] MG tablet 13:50: 00:00 [...] ia 4-10 (Same as: l 14:00: Cordarone) [place] Amlodipine No Notes: Memor ia 4-10 (Same as: l 14:00: Norvasc) [place] emtricitabi No Notes: Caesar lisa ne 200 MG / 4-10 (Same as: l tenofovir 14:00: Descovy) Herm ariel alafenamide 00 Non-formul 25 MG Oral nancy Tablet [Descovy] Sertraline No Notes: Memor ia 4-10 (Same as: l 14:00: Zoloft) [place] 00 Sertraline No Notes: Memor ia 4-10 (Same as: l 14:00: Zoloft) Marty 00 pantoprazol No Notes: Caesar lisa e 4-10 Tablet l 14:00: should not Marty 00 be chewed or crushed. (Same as: Protonix) Amiodarone No Notes: Memor ia 4-10 (Same as: l 14:00: Cordarone) Amlodipine No Notes: Memor ia 4-10 (Same as: l 14:00: Norvasc) [place] 00 emtricitabi No Notes: Caesar lisa ne 200 MG / 4-10 (Same as: l tenofovir 14:00: Descovy) Herm ariel alafenamide 00 Non-formul 25 MG Oral nancy Tablet [Descovy] Sertraline No Notes: Memor ia 4-10 (Same as: l 14:00: Zoloft) [place] 00 pantoprazol No Notes: Caesar lisa e 4-10 Tablet l 14:00: should not Marty 00 be chewed or crushed. (Same as: Protonix) Amiodarone No Notes: Memor ia 4-10 (Same as: l 14:00: Cordarone) Amlodipine No Notes: Memor ia 4-10 (Same as: l 14:00: Norvasc) emtricitabi No Notes: Caesar lisa ne 200 MG / 4-10 (Same as: l tenofovir 14:00: Descovy) Herm arile alafenamide 00 Non-formul 25 MG Oral nancy [...] ia 4-10 (Same as: l 14:00: Norvasc) [place] emtricitabi No Notes: Caesar lisa ne 200 MG / 4-10 (Same as: l tenofovir 14:00: Descovy) Herm arile alafenamide 00 Non-formul 25 MG Oral nancy Tablet [Descovy] Sertraline No Notes: Memor ia 4-10 (Same as: l 14:00: Zoloft) Marty 00 pantoprazol No Notes: Caesar lisa e 4-10 Tablet l 14:00: should not Marty 00 be chewed or crushed. (Same as: Protonix) Amiodarone No Notes: Memor ia 4-10 (Same as: l 14:00: Cordarone) [place] Amlodipine No Notes: Memor ia 4-10 (Same as: l 14:00: Norvasc) [place] emtricitabi No Notes: Caesar lisa ne 200 MG / 4-10 (Same as: l tenofovir 14:00: Descovy) Herm ariel alafenamide 00 Non-formul 25 MG Oral nancy Tablet [Descovy] Sertraline No Notes: Memor ia 4-10 (Same as: l 14:00: Zoloft) [place] 00 pantoprazol No Notes: Caesar lisa e 4-10 Tablet l 14:00: should not [place] 00 be chewed or crushed. (Same as: Protonix) Amiodarone No Notes: Memor ia 4-10 (Same as: l 14:00: Cordarone) [place] 00 Amlodipine No Notes: Memor ia 4-10 [...] e 4-10 Tablet l 14:00: should not [place] 00 be chewed or crushed. (Same as: Protonix) Amiodarone No Notes: Memor ia 4-10 (Same as: l 14:00: Cordarone) Marty Sucralfate No Notes: May M emoria 4-10 interfere l 02:00: w/enteral [place] 00 feeds - Take 1 hr before [...] Memoria 4-10 Same as: l 02:00: Eliquis [place] Hydralazine No Notes: Caesar lisa Hydrochlori 4-10 [...] M emoria 4-10 interfere l 02:00: w/enteral [place] 00 feeds - Take 1 hr before [...] Memoria 4-10 Same as: l 02:00: Eliquis [place] 00 Hydralazine No Notes: Caesar lisa Hydrochlori 4-10 (Same as: l de 50 MG 02:00: Apresoline Her mitchell Oral Tablet 00 ) May interfere w/enteral feedings Take With Food Sucralfate No Notes: May M emoria 4-10 interfere l 02:00: w/enteral [place] 00 feeds - Take 1 hr before or 2 hr after antacids, dairy pdt, meals & minerals - On empty stomach. For patients unable to swallow tablet, dissolve in 10mL - 30mL of water or juice and stir before giving. (Same As: Carafate) Saline No Notes: Memoria Flush 0.9% 4-10 (Same as: l 02:00: BD [place] 00 Posiflush) Eliquis No Notes: Memoria 4-10 [...] Memoria 4-10 Same as: l 02:00: Eliquis [place] Hydralazine No Notes: Caesar lisa Hydrochlori 4-10 [...] M emoria 4-10 interfere l 02:00: w/enteral [place] 00 feeds - Take 1 hr before or 2 hr after antacids, dairy pdt, meals & minerals - On empty stomach. For patients unable to swallow tablet, dissolve in 10mL - 30mL of water or juice and stir before giving. (Same As: Carafate) Saline No Notes: Memoria Flush 0.9% 4-10 (Same as: l 02:00: BD [place] Posiflush) Eliquis No Notes: Memoria 4-10 Same as: l 02:00: Eliquis [place] 00 Hydralazine No Notes: Caesar lisa Hydrochlori [...] not exceed l #3 00:12: 4gm/day of [place] acetaminop hen. (Same as: Tylenol with Codeine # 3) acetaminoph No Notes: Do M emoria en-codeine 4-10 not exceed l #3 00:12: 4gm/day of [place] acetaminop hen. (Same as: Tylenol with Codeine [...] not exceed l #3 00:12: 4gm/day of [place] acetaminop hen. (Same as: Tylenol with Codeine [...] tartrate 4-09 tab, l 22:00: Route: PO, [place] 00 Drug form: TAB, BID, Dosing Weight [...] oria 4-09 tab, l 22:00: Route: PO, [place] Drug form: TAB, BID, Dosing Weight 97.273, [...] tartrate 4-09 tab, l 22:00: Route: PO, [place] Drug form: TAB, BID, Dosing Weight 97.273, [...] tartrate 4-09 tab, l 22:00: Route: PO, [place] 00 Drug form: TAB, BID, Dosing Weight [...] oria 4-09 tab, l 22:00: Route: PO, [place] Drug form: TAB, BID, Dosing Weight 97.273, [...] Notes: Memoria 4-09 (Same l 17:07: as:MORPhin [place] 00 e Sulfate) Morphine No Notes: Memoria 4-09 (Same l 17:07: as:MORPhin [place] 00 e Sulfate) Morphine No Notes: Memoria 4- (Same l 17:07: as:MORPhin [place] 00 e Sulfate) Morphine No Notes: Memoria 4- (Same l 17:07: as:MORPhin [place] 00 e Sulfate) Morphine No Notes: Memoria 4- (Same l 17:07: as:MORPhin [place] 00 e Sulfate) Morphine No Notes: Memoria 4- (Same l 17:07: as:MORPhin [place] 00 e Sulfate) buPROPion 2020-0 No 150 [...] 150 mg, 1 Mem oria 24 hour -09 tab, l extended 16:00: Route: PO, Her [...] tab, PO, l oral 15:27: Daily, # [place] enteric 00 30 tab, 0 coated Refill(s), tablet Pharmacy: [facility] 149, 162.56, cm, 08/29/20 5:30:00 CDT, Height, 97.273, kg, 08/29/20 5:30:00 CDT, Weight pantoprazol 2020-0 Yes 40 mg = 1 M emoria e 40 mg 4-09 tab, PO, l oral 15:27: Daily, # [place] enteric 00 30 tab, 0 coated Refill(s), tablet Pharmacy: [facility] 149, 162.56, cm, 08/29/20 5:30:00 CDT, Height, 97.273, kg, 08/29/20 5:30:00 CDT, Weight pantoprazol 2020-0 Yes 40 mg = 1 M emoria e 40 mg 4-09 tab, PO, l oral 15:27: Daily, # [place] enteric 00 30 tab, 0 coated Refill(s), tablet Pharmacy: [facility] 149, 162.56, cm, 08/29/20 5:30:00 CDT, Height, 97.273, kg, 08/29/20 5:30:00 CDT, Weight pantoprazol 2021-0 Yes 40 mg = 1 M emoria e 40 mg 4-09 tab, PO, l oral 15:27: Daily, # [place] enteric 00 30 tab, 0 coated Refill(s), tablet Pharmacy: [facility] 149, 162.56, cm, 08/29/20 5:30:00 CDT, Height, 97.273, kg, 08/29/20 5:30:00 CDT, Weight pantoprazol 1-0 Yes 40 mg = 1 M emoria e 40 mg 4-09 tab, PO, l oral 15:27: Daily, # [place] enteric 00 30 tab, 0 coated Refill(s), tablet Pharmacy: [facility] 149, 162.56, cm, 08/29/20 5:30:00 CDT, Height, 97.273, kg, 08/29/20 5:30:00 CDT, Weight pantoprazol 1-0 Yes 40 mg = 1 M emoria e 40 mg 4-09 tab, PO, l oral 15:27: Daily, # [place] enteric 00 30 tab, 0 coated Refill(s), tablet Pharmacy: [facility] 149, 162.56, cm, 08/29/20 5:30:00 CDT, Height, 97.273, kg, 08/29/20 5:30:00 CDT, Weight pantoprazol 1-0 Yes 40 mg = 1 M emoria e 40 mg 4-09 tab, PO, l oral 15:27: Daily, # [place] enteric 00 30 tab, 0 coated Refill(s), tablet Pharmacy: [facility] 149, 162.56, cm, 08/29/20 5:30:00 CDT, Height, 97.273, kg, 08/29/20 5:30:00 CDT, Weight pantoprazol 1-0 No 40 mg = 1 M emoria e 40 mg 4-09 tab, PO, l oral 15:26: Daily, # [place] enteric 00 30 tab, 0 coated Refill(s) tablet sucralfate 2020-0 Yes 1 gm = 1 Mem oria 1 g oral 4-09 tab, PO, l tablet 15:26: Q12H, # 28 Skylar nn 00 tab, 0 Refill(s), Pharmacy: [facility] 149, 162.56, cm, 08/29/20 [...] nn 00 tab, 0 Refill(s), Pharmacy: [facility] 149, 162.56, cm, 08/29/20 5:30:00 CDT, Height, 97.273, kg, 08/29/20 5:30:00 CDT, Weight pantoprazol 2020-0 No 40 mg = 1 M emoria e 40 mg 4-09 tab, PO, l oral 15:26: Daily, # [place] enteric 00 30 tab, 0 coated Refill(s) tablet sucralfate 2020-0 Yes 1 gm = 1 Mem oria 1 g oral 4-09 tab, PO, l tablet 15:26: Q12H, # 28 Skylar nn 00 tab, 0 Refill(s), Pharmacy: [facility] 149, 162.56, cm, 08/29/20 [...] nn 00 tab, 0 Refill(s), Pharmacy: [facility] 149, 162.56, cm, 08/29/20 5:30:00 CDT, Height, 97.273, kg, 08/29/20 5:30:00 CDT, Weight pantoprazol 2021-0 No 40 mg = 1 M emoria e 40 mg 4-09 tab, PO, l oral 15:26: Daily, # [place] enteric 00 30 tab, 0 coated Refill(s) tablet sucralfate Yes 1 gm = 1 Mem oria 1 g oral 4-09 tab, PO, l tablet 15:26: Q12H, # 28 Skylar nn 00 tab, 0 Refill(s), Pharmacy: [facility] 149, 162.56, cm, 08/29/20 [...] nn 00 tab, 0 Refill(s), Pharmacy: [facility] 149, 162.56, cm, 08/29/20 [...] PO, l tablet 15:26: Q12H, # 28 Sklyar nn 00 tab, 0 Refill(s), Pharmacy: [facility] 149, 162.56, cm, 08/29/20 5:30:00 CDT, Height, 97.273, kg, 08/29/20 5:30:00 CDT, Weight Saline No Notes: Memoria Flush 0.9% 08-29 (Same as: l 15:25: BD [place] 00 Posiflush) Lorazepam No Notes: Memori a -09 (Same as: l 15:25: Ativan) Saline No Notes: Memoria Flush 0.9% 4-09 (Same as: l 15:25: BD Marty 00 Posiflush) Lorazepam No Notes: Memori a 4-09 (Same as: l 15:25: Ativan) Saline No Notes: Memoria Flush 0.9% 4-09 (Same as: l 15:25: BD [place] 00 Posiflush) Saline No Notes: Memoria Flush 0.9% 4-09 (Same as: l 15:25: BD [place] 00 Posiflush) Lorazepam No Notes: Memori a [...] Drug form: l mg + 15:00: INJ, [place] Dosing Weight 97.3, kg, Start date: 08/29/20 10:00:00 CDT, Stop date: 08/29/20 11:00:00 CDT Isuprel HCl 2020-0 No Route: IV, Memoria (ANES) 0.2 08-29 Drug form: l mg + 15:00: INJ, Dosing Weight 97.3, kg, Start date: 08/29/20 10:00:00 CDT, Stop date: 08/29/20 11:00:00 CDT Isuprel HCl 2020-0 No Route: IV, Memoria (ANES) 0.2 08-29 Drug form: l mg + 15:00: INJ, [place] 00 Dosing Weight 97.3, kg, Start date: [...] 08-29 Drug form: l 14:49: INJ, ONCE, [place] 00 Stop date: 08/29/20 9:49:00 CDT heparin 202-0 No Route: IV, Caesar lisa (ANES) 08-29 Drug form: l 14:49: INJ, ONCE, Stop date: 08/29/20 9:49:00 CDT heparin 202-0 No Route: IV, Caesar lisa (ANES) 08-29 Drug form: l 14:49: INJ, ONCE, Stop date: 08/29/20 9:49:00 CDT heparin 202-0 No Route: IV, Caesar lisa (ANES) 08-29 Drug form: l 14:49: INJ, ONCE, [place] 00 Stop date: 08/29/20 9:49:00 CDT heparin [...] 08-29 Drug form: l 14:29: INJ, ONCE, [place] 00 Stop date: 08/29/20 9:29:00 CDT propofol 2021-0 No Route: IV, Mem oria (ANES) 08-29 Drug form: l 14:29: INJ, ONCE, Stop date: 08/29/20 9:29:00 CDT propofol 2021-0 No Route: IV, Mem oria (ANES) 08-29 Drug form: l 14:29: INJ, ONCE, [place] 00 Stop date: 08/29/20 9:29:00 CDT heparin 202-0 No Route: IV, Caesar lisa (ANES) 08-29 Drug form: l 14:18: INJ, ONCE, Marty 00 Stop date: 08/29/20 9:18:00 CDT heparin 2021-0 No Route: IV, Caesar lisa (ANES) 08-29 Drug form: l 14:18: INJ, ONCE, Stop date: 08/29/20 9:18:00 CDT heparin 2021-0 No Route: IV, Caesar lisa (ANES) 08-29 Drug form: l 14:18: INJ, ONCE, [place] 00 Stop date: 08/29/20 9:18:00 CDT heparin 2021-0 No Route: IV, Caesar lisa (ANES) 08-29 Drug form: l 14:18: INJ, ONCE, Stop date: 08/29/20 9:18:00 CDT heparin 2021-0 No Route: IV, Caesar lisa (ANES) 08-29 Drug form: l 14:18: INJ, ONCE, Marty 00 Stop date: 08/29/20 9:18:00 CDT heparin 2021-0 No Route: IV, Caesar lisa (ANES) 08-29 Drug form: l 14:18: INJ, ONCE, [place] 00 Stop date: 08/29/20 9:18:00 CDT heparin 2021-0 No Route: IV, Caesar lisa (ANES) 08-29 Drug form: l 14:18: INJ, ONCE, [place] 00 Stop date: 08/29/20 9:18:00 CDT Labetalol 1-0 No 10 mg, Memori a 08-29 Route: l 14:01: IVP, Marty 00 Q5Min, Dosing Weight 97.273, kg, PRN Elevated BP, Start date: 08/29/20 9:01:00 CDT, Duration: 5 doses or times, Stop date: Limited # of times Acetaminoph 1-0 No 1,000 mg, M emoria en 08-29 Route: PO, l 14:01: Drug form: [place] 00 TAB, ONCE, Dosing Weight 97.273, kg, [...] oria ne 08-29 Route: l 14:01: IVP, [place] 00 Q5Min, Dosing Weight 97.273, kg, PRN Pain Score 7-10, Start date: 08/29/20 9:01:00 CDT, Duration: 4 doses or times, Stop date: Limited # of times Flumazenil 1-0 No 0.2 mg, Caesar lisa 08-29 Route: l 14:01: IVP, PRN, [place] 00 Dosing Weight 97.273, kg, PRN Benzodiaze [...] ia 08-29 Route: l 14:01: IVP, ONCE, [place] 00 Dosing Weight 97.273, kg, PRN Nausea [...] 08-29 Route: PO, l 14:01: Drug form: [place] 00 TAB, ONCE, Dosing Weight 97.273, kg, [...] Memori a 08-29 Route: l 14:01: IVP, [place] 00 Q2MIN, Dosing Weight 97.273, kg, PRN [...] Memori a 08-29 Route: l 14:01: IVP, [place] 00 Q5Min, Dosing Weight 97.273, kg, PRN [...] oria ne 08-29 Route: l 14:01: IVP, [place] 00 Q5Min, Dosing Weight 97.273, kg, PRN Pain Score 7-10, Start date: 08/29/20 9:01:00 CDT, Duration: 4 doses or times, Stop date: Limited # of times Flumazenil 1-0 No 0.2 mg, Caesar lisa 08-29 Route: l 14:01: IVP, PRN, [place] 00 Dosing Weight 97.273, kg, PRN Benzodiaze pine Reversal, Initial dose, Start date: 08/29/20 9:01:00 CDT, Duration: 30 day, Stop date: 09/28/20 9:00:00 CDT Naloxone 1-0 No 0.4 mg, Memori a 08-29 Route: l 14:01: IVP, [place] 00 Q2MIN, Dosing Weight 97.273, kg, PRN Narcotic Reversal, Start date: 08/29/20 9:01:00 CDT, Duration: 8 doses or times, Stop date: Limited # of times Ondansetron 2021-0 No 4 mg, Memor ia 08-29 Route: l 14:01: IVP, ONCE, [place] 00 Dosing Weight 97.273, kg, PRN Nausea & Vomiting, Start date: 08/29/20 9:01:00 CDT Labetalol 1-0 No 10 mg, Memori a 08-29 Route: l 14:01: IVP, [place] 00 Q5Min, Dosing Weight 97.273, kg, PRN [...] oria ne 08-29 Route: l 14:01: IVP, [place] 00 Q5Min, Dosing Weight 97.273, kg, PRN [...] oria ne 08-29 Route: l 14:01: IVP, [place] 00 Q5Min, Dosing Weight 97.273, kg, PRN [...] Memori a 08-29 Route: l 14:01: IVP, [place] 00 Q2MIN, Dosing Weight 97.273, kg, PRN [...] ia 08-29 Route: l 14:01: IVP, ONCE, [place] Dosing Weight 97.273, kg, PRN Nausea & Vomiting, Start date: 08/29/20 9:01:00 CDT Naloxone 1-0 No 0.4 mg, Memori a 08-29 Route: l 14:01: IVP, [place] 00 Q2MIN, Dosing Weight 97.273, kg, PRN [...] Memori a 08-29 Route: l 14:01: IVP, [place] 00 Q5Min, Dosing Weight 97.273, kg, PRN Elevated BP, Start date: 08/29/20 9:01:00 CDT, Duration: 5 doses or times, Stop date: Limited # of times Acetaminoph 2021-0 No 1,000 mg, M emoria en 08-29 Route: PO, l 14:01: Drug form: [place] 00 TAB, ONCE, Dosing Weight 97.273, kg, [...] oria ne 08-29 Route: l 14:01: IVP, [place] 00 Q5Min, Dosing Weight 97.273, kg, PRN Pain Score 7-10, Start date: 08/29/20 9:01:00 CDT, Duration: 4 doses or times, Stop date: Limited # of times Flumazenil 1-0 No 0.2 mg, Caesar lisa 08-29 Route: l 14:01: IVP, PRN, [place] 00 Dosing Weight 97.273, kg, PRN Benzodiaze pine Reversal, Initial dose, Start date: 08/29/20 9:01:00 CDT, Duration: 30 day, Stop date: 09/28/20 9:00:00 CDT Naloxone 1-0 No 0.4 mg, Memori a 08-29 Route: l 14:01: IVP, [place] 00 Q2MIN, Dosing Weight 97.273, kg, PRN Narcotic Reversal, Start date: 08/29/20 9:01:00 CDT, Duration: 8 doses or times, Stop date: Limited # of times Ondansetron 1-0 No 4 mg, Memor ia 08-29 Route: l 14:01: IVP, ONCE, [place] 00 Dosing Weight 97.273, kg, PRN Nausea [...] lisa 08-29 Route: l 14:01: IVP, PRN, [place] Dosing Weight 97.273, kg, PRN Benzodiaze pine Reversal, Initial dose, Start date: 08/29/20 9:01:00 CDT, Duration: 30 day, Stop date: 09/28/20 9:00:00 CDT Naloxone 2020-0 No 0.4 mg, Memori a 08-29 Route: l 14:01: IVP, [place] 00 Q2MIN, Dosing Weight 97.273, kg, PRN [...] 08-29 Drug form: l 13:52: INJ, ONCE, [place] 00 Stop date: 08/29/20 8:52:00 CDT rocuronium 2020-0 [...] 08-29 Drug form: l 13:42: INJ, ONCE, [place] 00 Stop date: 08/29/20 8:42:00 CDT fentaNYL 2020- No Route: IV, Mem [...] 2021-0 No Route: IV, Memoria ine (ANES) 4- Drug form: l 10 13:15: INJ, Start [place] microgram 00 date: 08/29/20 8:15:00 CDT, Stop date: 08/29/20 9:15:00 CDT norepinephr 2020-0 No Route: IV, Memoria ine (ANES) 4- Drug form: l 10 13:15: INJ, Start Marty microgram 00 date: 08/29/20 8:15:00 CDT, Stop date: 08/29/20 9:15:00 CDT norepinephr 2020-0 No Route: IV, Memoria ine (ANES) 4- Drug form: l 10 13:15: INJ, Start [place] microgram date: 08/29/20 8:15:00 CDT, Stop date: 08/29/20 9:15:00 CDT Sodium 2020-0 No Route: IV, Memor ia Chloride 4-09 Total l 0.9% IV 12:30: Volume: [place] (ANES) 1000 00 1,000, mL Start date: 08/29/20 7:30:00 CDT, Stop date: 08/29/20 8:30:00 CDT Sodium 2020-0 No Route: IV, Memor ia Chloride 4-09 Total l 0.9% IV 12:30: Volume: [place] (ANES) 1000 00 1,000, mL Start date: [...] 4-09 Total l 0.9% IV 12:30: Volume: [place] (ANES) 1000 00 1,000, mL Start date: 08/29/20 7:30:00 CDT, Stop date: 08/29/20 8:30:00 CDT Sodium 2020-0 No Route: IV, Memor ia Chloride 4-09 Total l 0.9% IV 12:30: Volume: [place] (ANES) 1000 00 1,000, mL Start date: [...] PO, l Hydrochlori 11:42: Q24H, # 30 [place] de 150 MG 00 tab, 0 Extended Refill(s) Release Tablet 24 HR Yes 150 mg = 1 Memori a Bupropion -09 tab, PO, l Hydrochlori 11:42: Q24H, # 30 [place] de 150 MG 00 tab, 0 Extended Refill(s) Release Tablet 24 HR Yes 150 mg = 1 Memori a Bupropion - tab, PO, l Hydrochlori 11:42: Q24H, # 30 Marty de 150 MG 00 tab, 0 Extended Refill(s) Release Tablet 24 HR Yes 150 mg = 1 Memori a Bupropion -09 tab, PO, l Hydrochlori 11:42: Q24H, # 30 [place] de 150 MG 00 tab, 0 Extended Refill(s) Release Tablet 24 HR Yes 150 mg = 1 Memori a Bupropion -09 tab, PO, l Hydrochlori 11:42: Q24H, # 30 [place] de 150 MG 00 tab, 0 Extended Refill(s) Release Tablet 24 HR Yes 150 mg = 1 Memori a Bupropion -09 tab, PO, l Hydrochlori 11:42: Q24H, # 30 [place] de 150 MG 00 tab, 0 Extended Refill(s) Release Tablet 24 HR Yes 150 mg = 1 Memori a Bupropion 4-09 tab, PO, l Hydrochlori 11:42: Q24H, # 30 Marty de 150 MG 00 tab, 0 Extended Refill(s) Release Tablet apixaban Yes 5 mg, PO, Me moria MG Oral 4-09 Q12H, tab, l Tablet 11:41: 0 [place] [Eliquis] 00 Refill(s), For Atrial Fibrilatio n [...] - Q12H, tab, l Tablet 11:41: 0 [place] [Eliquis] 00 Refill(s), For Atrial Fibrilatio n [...] tab, PO, l tablet 11:38: Daily, # [place] 00 90 tab, 3 Refill(s) AMIODarone 2020-0 Yes 200 mg = 1 M emoria 200 mg oral 4-09 tab, PO, l tablet 11:38: Daily, # [place] 00 90 tab, 3 Refill(s) AMIODarone 2020-0 Yes 200 mg = 1 M emoria 200 mg oral 4-09 tab, PO, l tablet 11:38: Daily, # [place] 00 90 tab, 3 Refill(s) AMIODarone 2020-0 [...] tab, PO, l tablet 11:38: Daily, # [place] 00 90 tab, 3 Refill(s) AMIODarone 2020-0 [...] No 1,000 mL, Memori a saline 0.9% Rate: 100 l IV 1,000 mL 10:30: [...] tablet sucralfate 2020- No Method i (CARAFATE) 4-09 05-17 st 1 gram 00:00: 00:00 [facility]osp[facility] tablet 00 :00 l Eliquis 5 2020- Yes [facility] mg tablet [facility] 00:00: Hospita 00 l apixaban Yes 5mg Take 5 mg Univ ers (ELIQUIS) 5 3-17 by mouth 2 it y of mg tablet 08:18: (two) [place] 30 times Medical daily. Branch amiodarone Yes [...] 200mg QD Take 1 Met hodi (PACERONE) 07-04-[address] 200 MG 00:00: 05:59 (200 mg Hospita tablet 00 :00 total) by l mouth daily for 30 days. pantoprazol 2020-1 2021- No 40mg Q.5D Take 1 Met hodi [...] awake for 30 days. budesonide 2019-05- No [id number] .5mg Q.5D Take 2 mL Method[facility] (PULMICORT) [...] day for 30 days. acetaminoph 2019-05- [place] [id number] 1{tbl} Q6H Take 1 [facility] en-codeine 07-04 [...] methocarbam 2019-05 No 1000mg Q.25D Take 2 [facility] oL [...] 5mg Take 5 mg Method[facility] e (ABILIFY) 06-27-[address] 5 MG tablet 02:00: [...] 90 4-14 ity of mcg/actuati 00:00: [place] on inhaler 00 Medical Branch albuterol Yes [...] Status Comments Sour e Immunization Name Name [employer] COVID-19 2020-07-23 Completed [facility] MRNA VACCINATION 00:00:00 [facility] PFIZER COVID-19 2020-07-02 Completed [facility] MRNA VACCINATION 00:00:00 [facility] Influenza Virus 2017-03-08 Completed [facility]it [facility]00 [facility] Influenza Virus 2014-01-30 Completed Universit y of Vaccine (3+ yrs) 00:00:00 [facility] dical Branch Pneumococcal 13 2014-01-30 Completed Universit y of Conjugate, PCV13 00:00:00 [facility] dical (Prevnar 13) Branch Pneumococcal 2012-02-16 Completed University o f Polysaccharide, 00:00:00 [facility] PPSV23 (PNEUMOVAX) Branch Influenza Virus 2012-02-16 Completed Universit y of Vaccine 00:00:00 [facility] PPD (TB) 2012-02-16 Completed University of 00:00:00 [facility] Hep B, Adol or Pedi 2011-09-01 Completed Unive rsity of Dosage 00:00:00 [facility] Hep B, Adol or Pedi 2011-03-17 Completed Unive rsity of Dosage 00:00:00 [facility] Influenza Virus 2011-02-10 Completed Universit y of Vaccine 00:00:00 [facility] Hep B, Adol or Pedi 2011-02-10 Completed Unive rsity of Dosage 00:00:00 [facility] PPD (TB) 2010-11-18 Completed University [facility] 00:00:00 [facility] TDAP (ADACEL) 2010-11-18 Completed University of VACCINE 00:00:00 [facility] HEPATITIS A 2004-03-02 Completed [facility] 00:00:00 [facility] HEPATITIS A 2003-08-01 Completed University of 00:00:00 [facility] Pneumococcal 2001-10-04 Completed [place] o f Polysaccharide, 00:00:00 [place] Med ical PPSV23 (PNEUMOVAX) Branch PPD (TB) 2001-10-04 Completed University 00:00:00 [facility] Vital Signs Vital Name Observation Time Observation Value Comments Source Systolic blood 2021-07-14 142 mm[Hg] [facility] pressure 15:18:00 Diastolic blood 2021-07-14 76 mm[Hg] [facility] pressure 15:18:00 Heart rate 2021-07-14 61 /min [facility] 15:18:00 Body height 2021-07-14 162.6 cm [facility] 15:18:00 Body weight 2021-07-14 94.802 kg [facility] 15:18:00 BMI 2021-07-14 35.87 kg/m2 [facility] 15:18:00 Systolic blood 2021-06-15 175 mm[Hg] University [facility] pressure 16:23:00 [facility] Diastolic blood 2021-06-15 104 mm[Hg] [place] o f pressure 16:23:00 [facility] Respiratory rate 2021-06-15 18 /min [facility] 16:18:00 [facility] Body height 2021-06-15 162.6 cm University [facility] 16:18:00 [facility] Body weight 2021-06-15 95.709 kg University 16:18:00 [facility] BMI 2021-06-15 36.22 kg/m2 University 16:18:00 [facility] Oxygen saturation 2021-06-15 92 /min Didn't bring O2 Univers ity of in Arterial blood 16:18:00 machine with [facility] by Pulse oximetry her Branch Heart rate 2021-01-28 56 /min University 14:08:00 [facility] Systolic blood 2020-12-08 125 mm[Hg] [facility] pressure 15:48:00 Hospital Diastolic blood 2020-12-08 76 mm[Hg] [facility] pressure 15:48:00 Hospital Heart rate 2020-12-08 64 /min [facility] 15:48:00 Hospital Body temperature 2020-12-08 36.61 Amina [facility] 15:48:00 Hospital Respiratory rate 2020-12-08 17 /min [facility] 15:48:00 Hospital Body height 2020-12-08 162.6 cm [facility] 15:48:00 Hospital Body weight 2020-12-08 98.884 kg [facility] 15:48:00 Hospital BMI 2020-12-08 37.42 kg/m2 [facility] 15:48:00 Hospital Oxygen saturation 2020-12-08 97 /min [facility] in Arterial blood 15:48:00 Hospital by Pulse oximetry Body temperature 2020-12-02 36.83 Amina [facility] 14:14:00 [facility] Respitory Rate 2020-08-30 [facility] Herm ariel 13:00:00 Systolic (mm Hg) 2020-08-30 [facility] rmann 13:00:00 Diastolic (mm Hg) 2020-08-30 [facility] ermann 13:00:00 Systolic (mm Hg) 2020-08-30 [facility] rmann 11:00:00 Diastolic (mm Hg) 2020-08-30 [facility] ermann 11:00:00 Temperature Oral 2020-08-30 98.4 F [facility] rmann (F) 11:00:00 Respitory Rate 2020-08-30 [facility] ariel 11:00:00 Respitory Rate 2020-08-30 [facility] ariel 10:00:00 Systolic (mm Hg) 2020-08-30 [facility] rmann 10:00:00 Diastolic (mm Hg) 2020-08-30 [facility] ermann 10:00:00 Temperature Oral 2020-08-30 96.9 F [facility] rmann (F) 00:00:00 Temperature Oral 2020-08-29 97.6 F [facility] rmann (F) 11:26:00 Height 2020-08-29 162.56 cm [facility] Patel n 10:30:00 Weight 2020-08-29 [facility] 10:30:00 BMI Calculated 2020-08-29 [facility] a[facility] 10:30:00 Procedures Procedure Date / Time Performing Source Performed Clinician ECG 12-LEAD 2021-07-14 [facility] 15:14:00 Elan [id number] 2021-06-17 RIKY [facility] [place] 00:00:00 [facility] CONSENT/REFUSAL FOR DIAGNOSIS AND 2021-06-15 [facility] 16:11:59 Unassigned, No [facility] Branch ASSIGNMENT OF BENEFITS 2021-06-15 [facility] y of 16:11:40 Unassigned, No [place] Medical Name Branch GASTROINTESTINAL PANEL 2020-12-08 Eliseo [...] THROMBOPLASTIN TIME (PTT) 2020-09-05 Ted Maharaj 15:04:00 [facility] PROTHROMBIN TIME WITH INR 2020-09-05 Jignesh Maharaj ist 15:04:00 [facility] HC COMPLETE BLD COUNT W/AUTO DIFF 2020-09-01 Ramiro Mitchell 15:45:00 Hospital PROTHROMBIN TIME WITH INR 2020-09-01 Ramiro Mitchell ist 15:45:00 Hospital PARTIAL THROMBOPLASTIN TIME (PTT) 2020-09-01 Ramiro Mitchell 15:45:00 [facility] ECG 12-LEAD 2020-09-01 Ramiro Mitchell 15:31:26 Hospital COVID-19 QUALITATIVE RT-PCR 2020-09-01 Ramiro Mitchell odist 15:24:00 Hospital COMPREHENSIVE METABOLIC PANEL 2020-09-01 Ramiro Mitchell thodist 15:23:00 Hospital ESTIMATED GFR 2020-09-01 Ramiro Mitchell 15:23:00 Hospital NM GASTRIC EMPTYING 2020-08-27 Eliseo Arce 19:05:[address] CHEST WO CONTRAST ABDOMEN WO 2020-08-21 Eliseo Arce CONTRAST 15:20:00 Hospital FL ESOPHAGRAM SINGLE CONTRAST 2020-08-13 Eliseo Arce thodist 15:25:00 Hospital [id number] 2020-05-07 Provider, [facility] 00:00:00 [facility] Hospital BASIC METABOLIC PANEL 2020-05-02 Pau Ott 15:08:00 Hospital HC COMPLETE BLD COUNT W/AUTO DIFF 2020-05-02 Pau Ott 15:08:00 Hospital MAGNESIUM LEVEL 2020-05-02 Pau Ott 15:08:00 Hospital ESTIMATED GFR 2020-05-02 Eliseo Arce 15:08:00 Hospital CBC HEMOGRAM 2020-05-01 Idalmis Montilla [facility] 11:20:00 Hospital BASIC METABOLIC PANEL 2020-05-01 Idalmis Montilla [facility] 10:00:00 Hospital ESTIMATED GFR 2020-05-01 Idalmis Montilla [facility] 10:00:00 Hospital HEPATIC FUNCTION PANEL 2020-05-01 Idalmis Montilla t 10:00:00 [facility] THYROID STIMULATING HORMONE 2020-05-01 Idalmis Montilla Met hodist 10:00:00 Hospital US DUPLEX VENOUS UPPER EXTREMITY 2020-04-30 Ceasar Patel [facility] BILATERAL 23:36:00 Hospital XR CHEST 2 VW 2020-04-30 Pau Ott 22:18:36 Hospital MIDLINE INSERTION ATTEMPT - 2020-04-30 Asim, Blesilda Me thodist UNSUCCESSFUL 17:14:34 Hospital XR ABDOMEN 1 VW PORTABLE 2020-04-[address] 15:45:00 [facility] ECG 12-LEAD 2020-04-30 Pau Ott 15:06:58 Hospital VA AN ELECTIVE ENDOTRACHEAL AIRWAY 2020-04-28 Carlee Malloy grady [facility] 20:57:57 [facility] REPAIR, HIATAL HERNIA, 2020-04-28 Eliseo Arce LAPAROSCOPIC, ROBOT-ASSISTED 19:38:00 [facility] pital ESOPHAGOGASTRODUODENOSCOPY (EGD) 2020-04-28 Eliseo Arce 19:38:00 [facility] POC GLUCOSE 2020-04-28 Eliseo Arce 15:01:00 [facility] SURGICAL PATHOLOGY REQUEST 2020-04-28 Eliseo Arce Metho dist 14:27:00 Hospital BASIC METABOLIC PANEL 2020-04-28 Ted Gonzalez 08:11:00 [facility] HC COMPLETE BLD COUNT W/AUTO DIFF 2020-04-28 Amirhardy [facility] 08:11:00 [facility] MAGNESIUM LEVEL 2020-04-28 Amirisaiosrarohini, [facility] 08:11:00 [facility] PHOSPHORUS LEVEL 2020-04-28 Amirisaiosrarohini, [facility] 08:11:00 [facility] PROTHROMBIN TIME WITH INR 2020-04-28 Carlos Method ist 08:11:00 [facility] PARTIAL THROMBOPLASTIN TIME (PTT) 2020-04-28 Carlos [facility] 08:11:00 [facility] ESTIMATED GFR 2020-04-28 Eliseo Arceist 08:11:00 Hospital TYPE AND SCREEN 2020-04-28 Eliseo Arceist 08:11:00 Hospital POC GLUCOSE 2020-04-28 Yazmin Ray [facility] 05:38:00 Hospital POC GLUCOSE 2020-04-28 Yazmin Ray [facility] 02:14:00 Hospital TTE COMPLETE, WO CONTRAST, W 2020-04-27 Nieves Hyde Tx thodist DOPPLER ([id number]) 21:00:00 Hospital POC GLUCOSE 2020-04-27 Eliseo Arce [facility] 18:30:00 Hospital BASIC METABOLIC PANEL 2020-04-27 Eliseo Arce [facility] 12:34:00 Hospital ESTIMATED GFR 2020-04-27 Eliseo Arce [facility] 12:34:00 Hospital POC GLUCOSE 2020-04-27 Yazmin Ray [facility] 03:18:00 Hospital ECG 12-LEAD 2020-04-27 Nieves Hyde 02:24:31 Hospital COVID-19 QUALITATIVE RT-PCR 2020-04-26 Amirashmi, Meth odist 21:44:00 [facility] HC COMPLETE BLD COUNT W/AUTO DIFF 2020-04-26 Amirhardy [facility] 09:05:00 [facility] BASIC METABOLIC PANEL 2020-04-26 Amirisaiosjacklyn [facility] 09:05:00 [facility] MAGNESIUM LEVEL 2020-04-26 Amirisaiosjacklyn, Catholic 09:05:00 [facility] PHOSPHORUS LEVEL 2020-04-26 Amirisaiosjacklyn, [facility] 09:05:00 [facility] CD 4 SUBSET 2020-04-26 Eliseo Arce 09:05:00 Hospital ESTIMATED GFR 2020-04-26 Eliseo Arce [facility] 09:05:00 Hospital MISCELLANEOUS REFERRAL TEST 2020-04-26 Eliseo Arce Meth odist 09:05:00 Hospital POTASSIUM LEVEL 2020-04-26 Eliseo Arceist 03:04:00 Hospital HC COMPLETE BLD COUNT W/AUTO DIFF 2020-04-26 Carlos [facility] 00:51:00 [facility] BASIC METABOLIC PANEL 2020-04-26 Carlos [facility] 00:51:00 [facility] MAGNESIUM LEVEL 2020-04-26 Carlos [facility] 00:51:00 [facility] PHOSPHORUS LEVEL 2020-04-26 Carlos [facility] 00:51:00 [facility] ESTIMATED GFR 2020-04-26 Eliseo Arce [facility] 00:51:00 Hospital FL ESOPHAGRAM DOUBLE CONTRAST 2020-04-25 Eliseo Arce Tx thodist 17:31:[address] CHEST WO CONTRAST ABDOMEN WO 2020-04-21, Yen-Te [facility] CONTRAST PELVIS WO CONTRAST 14:15:34 [facility] ital HC COMPLETE BLD COUNT W/AUTO DIFF 2020-04-21, Yen-Te [facility] 13:22:00 [facility] COMPREHENSIVE METABOLIC PANEL 2020-04-21, Yen-Te Me thodist 13:22:00 [facility] LIPASE LEVEL 2020-04-21, Yen-Te Catholic 13:22:00 [facility] LACTIC ACID LEVEL, SEPSIS - NOW 2020-04-21, Yen-Te [facility] AND REPEAT 2X EVERY 3 HOURS 13:22:00 [facility] ital ESTIMATED GFR 2020-04-21, Yen-Te [facility] 13:22:00 [facility] Plan of Care Planned Activity Planned Date Details Comments Source Future Scheduled DIABETES: RETINAL EYE [facility] Test EXAM [code = DIABETES: RETINAL EYE EXAM] Future Scheduled DIABETIC FOOT EXAM [facility] Test [code = DIABETIC FOOT EXAM] Future Scheduled Screening for [facility] Test malignant neoplasm of cervix (procedure) [code = 827800607] Future Scheduled BREAST CANCER [facility] Test SCREENING [code = BREAST CANCER SCREENING] Future Scheduled COLONOSCOPY SCREENING [facility] Test [code = COLONOSCOPY SCREENING] Future Scheduled SHINGLES VACCINES [facility] (#1) [code = SHINGLES VACCINES (#1)] Future Scheduled COVID-19 VACCINE (3 - [facility] Test Pfizer risk 3-dose series) [code = COVID-19 VACCINE (3 - Pfizer risk 3-dose series)] Future Scheduled INFLUENZA VACCINE [facility] Test [code = INFLUENZA VACCINE] Future Scheduled 65+ [facility]OCOCCAL [facility] Test VACCINE (4 of 4) [code = 65+ PNEUMOCOCCAL VACCINE (4 of 4)] Medication 2021-08-10 LORazepam 1 mg tablet [facility] 00:00:00 [code = 986428] Medical Bran ch Encounters Start End Encounter Admission Attending Care Care Encounter Source Date/Time Date/Time Type Type Clinicians Facility Department ID 2021-08-03 Inpatient Rasgary, HCACL OUTD [id number] [facility] 11:30:00 Mike [id number] [facility] 2021-07-14 Outpatient [facility] [id number] [place] 09:33:51 [facility] 2021-06-16 Inpatient EL Ashely, HCACL OUTD [id number] [facility] 08:30:00 Mike [id number] [facility] 2021-06-15 Inpatient EL Chaselan, [facility]ACL OUTD [id number] [facility] 10:30:00 Mike [id number] [facility] 2021-08-05 2021-08-05 Outpatient EL Ashely, EDUARDOCL HCACL [id number] [facility] 05:24:00 05:24:00 Mike 31 [facility] 2021-08-05 2021-08-05 Outpatient EL Raslan, HCACL OUTD [id number] [facility] 05:24:00 05:24:00 Mike [id number] [facility] 2021-07-14 2021-07-14 Office KIMBERLEY Lira 6400 1.2.840.114 [id number] [place] 08:45:00 09:34:01 Visit Elan RUIZ 350.1.13.58 [facility] 9.2.7.2.686 [id number] 1 2021-07-09 2021-07-09 Telephone KIMBERLEY De Souza 2773 1.2.840.114 [id number] [place] 00:00:00 00:00:[address] 350.1.13.58 Health 9.2.7.2.686 [id number] 1 2021-06-17 2021-06-17 Inpatient RAUL Lund, HCACL INTE.02 [id number] [facility] 10:56:00 14:36:00 Mike [id number] [facility] 2021-06-17 2021-06-17 Inpatient RAUL Lund, HCACL INTE.02 [id number] [facility] 10:56:00 14:36:00 Mike 47 [facility] 2021-06-15 2021-06-15 Orders Doctor 1.2.840.1 [id number] Univers 00:00:00 00:00:00 Only Unassigned, 26700.1.1 ity of [place] 3.104.2.7 [place] .3.830432 Medica l .8 Branch 2021-06-15 2021-06-15 Travel 1.2.840.1 1.2.554.681 [id number] [facility] 00:00:00 00:00:00 03124.1.1 350.1.13.10 ity of 3.104.2.7 4.[place].7.3.698 [place] .3.168414 084.8 Medica l .8 Branch 2021-06-11 2021-06-11 Refill East, 1.2.840.1 [id number] Univers 00:00:00 00:00:00 Santiago 40134.1.1 ity of 3.104.2.7 [place] .3.062744 Medica l .8 Branch 2021-06-02 2021-06-02 Telephone East, 1.2.840.9 [id number] Univers 00:00:00 00:00:00 Santiago 90105.1.1 ity of 3.104.2.7 [place] .3.693531 Medica l .8 Branch 2021-05-29 2021-05-29 Telephone East, 1.2.840.1 [id number] Univers 00:00:00 00:00:00 [place] 33233.1.1 ity of 3.104.2.7 [place] .3.607610 Medica l .8 Branch 2021-01-19 2021-01-19 Telephone Prabhu, 1.2.840.1 [id number] Methodi 00:00:00 00:00:[address] 3.430.2.7 Hospit a .3.242640 l .8 2020-12-12 2020-12-12 Office Hematpour, [facility] 6400 1.2.840.114 12 [id number] 07:42:02 08:18:[address] 350.1.13.58 9.2.7.2.686 [id number] 1 2020-12-09 2020-12-09 Telephone Jillbrennalion, 1.2.840.1 [id number] Methodi 00:00:00 00:00:00 Sarai Lieberman 08405.1.1 316 s t 3.430.2.7 Hospit a .3.244135 l .8 2020-12-08 2020-12-08 [facility], 1.2.840.1 [id number] [id number] Methodi 12:35:54 23:59:00 Encounter Ray 13535.1.[address] 3.430.2.7 Hospit a .3.592594 l .8 2020-12-08 2020-12-08 [facility], 1.2.840.1 [id number] Methodi 17:20:50 17:25:[address] 3.430.2.7 Hospit a .3.608642 l .8 2020-12-08 2020-12-08 [facility], .2.840.1 [id number] [id number] Methodi 09:55:34 11:39:56 Visit Ray 73416.1.[address] 3.430.2.7 Hospit a .3.638458 l .8 2020-12-08 2020-12-08 Travel 1.2.840.1 1.2.603.336 [id number] Methodi 00:00:00 00:00:[address] 3.430.2.7 0.2.7.3.698 Ho spita .3.330606 084.8 l .8 2020-12-02 2020-12-02 Credit Collections Specialist [facility] UNIVERSIT 1.2.840.114 [id number] 10:20:06 10:36:19 Visit [address] [facility]1.13.[facility] 4.2.7.2.686 [id number] 2020-11-25 2020-11-25 Office [facility] 1.2.840.114 [id number] 11:06:30 11:58:14 Visit Robbi R GARMENT SEWER HAND 350.1.13.10 [facility] 4.2.7.2.686 MATERNAL [id number] & CHILD 107 [facility] 2020-11-25 2020-11-25 Critical access hospital 1.2.211.912 [id number] 00:00:00 00:00:00 [facility] [place] 350.1.13.10 [facility] 4.2.7.2.686 [id number] 2020-11-25 2020-11-25 Telephone [facility] 1.2.494.900 [id number] 00:00:00 00:00:00 Rosheidia R GARMENT SEWER HAND 350.1.13.10 [facility] 4.2.7.2.686 MATERNAL [id number] & CHILD 107 [facility] 2020-11-14 2020-11-14 Abstract Clark 1.2.840.1 [id number] Methodi 00:00:00 00:00:[address] 3.430.2.7 Hospit a .3.505269 l .8 2020-11-14 2020-11-14 Telephone Clark 1.2.840.1 [id number] Methodi 00:00:00 00:00:[address] 3.430.2.7 Hospit a .3.374024 l .8 2020-11-07 2020-11-07 Telephone KIMBERLEY Ortiz 6400 1.2.840.114 [id number] 00:00:00 00:00:[address] 350.1.13.58 9.2.7.2.686 [id number] 1 2020-10-27 2020-10-27 Telephone Yazmin, 1.2.840.0 [id number] Methodi 00:00:00 00:00:[address] 3.430.2.7 Hospit a .3.606452 l .8 2020-10-24 2020-10-24 Telephone Clark, 1.2.840.1 [id number] Methodi 00:00:00 00:00:[address] 3.430.2.7 Hospit a .3.856599 l .8 2020-10-06 2020-10-12 Telemedici Yazmin, 1.2.840.1 [id number] Methodi 15:26:54 00:08:46 ne Ray [address]8069.1.[address] 3.430.2.7 Hospit a .3.873636 l .8 2020-09-30 2020-09-30 Telephone Yazmin, 1.2.840.2 [id number] Methodi 00:00:00 00:00:[address] 3.430.2.7 Hospit a .3.054973 l .8 2020-09-21 2020-09-21 Travel 1.2.840.1 1.2.774.414 [id number] Methodi 00:00:00 00:00:[address] 3.430.2.7 0.2.7.3.698 Ho spita .3.364224 084.8 l .8 2020-09-01 2020-09-09 Lab Paula, Min 1.2.840.1 [id number] Methodi 10:13:59 01:05:[address] 3.430.2.7 Hospit a .3.003932 l .8 2020-09-06 2020-09-06 [facility] 1.2.840.1 [id number] Methodi 17:42:30 23:59:[address] 3.430.2.7 Hospit a .3.997615 l .8 2020-09-06 2020-09-06 [facility], 1.2.840.1 [id number] Methodi 16:50:00 17:41:00 Encounter Ray [address]706.1.[address] 3.430.2.7 Hospit a .3.415682 l .8 2020-09-05 2020-09-05 [facility], 1.2.840.1 [id number] Methodi 09:17:00 19:45:00 Encounter Ray [address]20.1.[address] 3.430.2.7 Hospit a .3.576822 l .8 2020-09-05 2020-09-05 [facility], 1.2.840.1 [id number] Methodi 11:30:00 13:15:[address] 3.430.2.7 Hospit a .3.474733 l .8 2020-09-05 2020-09-05 Anesthesia [facility], 1.2.840.1 [id number] Methodi 11:27:00 12:20:00 Event Lynnettevalentinarobbie 51685.1.1 243 s t V. 3.430.2.7 Hospit a .3.848591 l .8 2020-09-05 2020-09-05 Travel 1.2.840.1 1.2.289.454 0525 [id number] Methodi 00:00:00 00:00:[address] 3.430.2.7 0.2.7.3.698 Ho spita .3.723495 084.8 l .8 2020-09-04 2020-09-04 Telephone Carol Ann, 1.2.840.1 [id number] Methodi 00:00:00 00:00:00 Sarai Lieberman 98511.1.1 762 s t 3.430.2.7 Hospit a .3.651065 l .8 2020-09-02 2020-09-02 Telephone Carol Ann, 1.2.840.7 [id number] Methodi 00:00:00 00:00:00 Sarai Corbin. 64829.1.1 344 s t 3.430.2.7 Hospit a .3.267485 l .8 2020-09-01 2020-09-01 Office Yazmin, 1.2.840.1 [id number] Methodi 08:42:53 09:50:51 Visit Ray 21665.1.[address] 3.430.2.7 Hospit a .3.621054 l .8 2020-09-01 2020-09-01 Telephone Yazmin, 1.2.840.5 [id number] Methodi 00:00:00 00:00:[address] 3.430.2.7 Hospit a .3.067357 l .8 2020-09-01 2020-09-01 Travel 1.2.840.1 1.2.851.020 4007 [id number] Methodi 00:00:00 00:00:[address] 3.430.2.7 0.2.7.3.698 Ho spita .3.926515 084.8 l .8 2020-08-29 2020-08-30 [facility] [id number] Memoria 10:20:00 14:10:00 Outpatient [facility] 00 l [facility] 2020-08-29 2020-08-30 Outpatient [facility]EM[facility], [facility] CAR [address] [facility] 05:20:00 09:10:00 [place] 2020-08-27 2020-08-27 [facility], 1.2.840.1 [id number] 2099 [id number] Methodi 09:55:15 23:59:00 Encounter Eliseo 51174.1.[address] 3.430.2.7 Hospit a .3.260986 l .8 2020-08-27 2020-08-27 Travel 1.2.840.1 1.2.839.009 5929 893339 Methodi 00:00:00 00:00:[address] 3.430.2.7 0.2.7.3.698 Ho spita .3.173875 084.8 l .8 2020-08-21 2020-08-21 Travel 1.2.840.1 1.2.084.685 5052 927933 Methodi 00:00:00 00:00:[address] 3.430.2.7 0.2.7.3.698 Ho spita .3.522750 084.8 l .8 2020-08-19 2020-08-19 Telephone Meli, 1.2.840.1 [id number] 143 [id number] Methodi 00:00:00 00:00:[address] 3.430.2.7 Hospit a .3.795420 l .8 2020-08-19 2020-08-19 Travel 1.2.840.1 1.2.173.630 8745 792629 Methodi 00:00:00 00:00:[address] 3.430.2.7 0.2.7.3.698 Ho spita .3.451160 084.8 l .8 2020-08-18 2020-08-18 Orders Carol Ann, 1.2.840.3 [id number] 2 [id number] Methodi 00:00:00 00:00:00 Only Sarai Lieberman 49611.1.1 410 s t 3.430.2.7 Hospit a .3.751923 l .8 2020-08-18 2020-08-18 Travel 1.2.840.1 1.2.546.217 7570 920210 Methodi 00:00:00 00:00:[address] 3.430.2.7 0.2.7.3.698 Ho spita .3.025935 084.8 l .8 2020-08-15 2020-08-15 Abstract Rodas, 1.2.840.1 [id number] 65899 50201 Methodi 00:00:00 00:00:[address] 3.430.2.7 Hospit a .3.533839 l .8 2020-07-02 2020-08-06 Clinical 1.2.840.1 [id number] 50620 Methodi 10:40:46 01:45:[address] 3.430.2.7 Hospit a .3.635717 l .8 2020-07-30 2020-07-30 Travel 1.2.840.1 1.2.916.251 8843 907131 Methodi 00:00:00 00:00:[address] 3.430.2.7 0.2.7.3.698 Ho spita .3.682554 084.8 l .8 2020-07-28 2020-07-28 Office [facility], 1.2.840.1 [id number] 81770 11553 Methodi 08:35:45 10:11:52 Visit Ray 19456.1.[address] 3.430.2.7 Hospit a .3.679071 l .8 2020-07-28 2020-07-28 Telephone Rodas, 1.2.840.1 [id number] 2099 415674 Methodi 00:00:00 00:00:[address] 3.430.2.7 Hospit a .3.835453 l .8 2020-07-28 2020-07-28 Travel 1.2.840.1 1.2.859.806 3193 328954 Methodi 00:00:00 00:00:[address] 3.430.2.7 0.2.7.3.698 Ho spita .3.187146 084.8 l .8 2020-07-25 2020-07-25 Telephone Carol Ann, 1.2.840.4 [id number] Methodi 00:00:00 00:00:00 Sarai Lieberman 82518.1.1 314 s t 3.430.2.7 Hospit a .3.569982 l .8 2020-07-25 2020-07-25 Travel 1.2.840.1 1.2.217.088 2527 278676 Methodi 00:00:00 00:00:[address] 3.430.2.7 0.2.7.3.698 Ho spita .3.012199 084.8 l .8 2020-07-23 2020-07-23 Clinical Tori, 1.2.840.1 [id number] 87676 23831 Methodi 08:39:40 08:44:40 Support Garlandvalentinomagali 42248.1.[address] P. 3.430.2.7 Hospit a .3.314051 l .8 2020-07-23 2020-07-23 Travel 1.2.840.1 1.2.474.851 2185 926861 Methodi 00:00:00 00:00:[address] 3.430.2.7 0.2.7.3.698 Ho spita .3.564137 084.8 l .8 2020-07-11 2020-07-11 Travel 1.2.840.1 1.2.096.820 7362 551284 Methodi 00:00:00 00:00:[address] 3.430.2.7 0.2.7.3.698 Ho spita .3.073511 084.8 l .8 2020-07-02 2020-07-02 Telephone Yazmin, 1.2.840.8 [id number] Methodi 00:00:00 00:00:[address] 3.430.2.7 Hospit a .3.199586 l .8 2020-07-02 2020-07-02 Travel 1.2.840.1 1.2.549.419 1103 321521 Methodi 00:00:00 00:00:[address] 3.430.2.7 0.2.7.3.698 Ho spita .3.470519 084.8 l .8 2020-06-23 2020-06-23 [facility] 1.2.840.1 [id number] 91379 14409 Methodi 09:36:17 11:00:44 Visit Ray 31410.1.[address] 3.430.2.7 Hospit a .3.244760 l .8 2020-06-23 2020-06-23 Telephone Clark, 1.2.840.1 [id number] 2099 368933 Methodi 00:00:00 00:00:[address] 3.430.2.7 Hospit a .3.974324 l .8 2020-06-23 2020-06-23 Travel 1.2.840.1 1.2.273.776 0333 188427 Methodi 00:00:00 00:00:[address] 3.430.2.7 0.2.7.3.698 Ho spita .3.105573 084.8 l .8 2020-06-09 2020-06-09 Telephone Yazmin, 1.2.840.1 [id number] Methodi 00:00:00 00:00:[address] 3.430.2.7 Hospit a .3.243554 l .8 2020-06-06 2020-06-06 Josias Ball, 1.2.840.1 [id number] 162868 9678 Methodi 00:00:00 00:00:00 Eh Lemus 56801.1.[address] 3.430.2.7 Hospit a .3.527570 l .8 2020-06-03 2020-06-03 Telephone Yazmin, 1.2.840.2 [id number] Methodi 00:00:00 00:00:[address] 3.430.2.7 Hospit a .3.582195 l .8 2020-06-02 2020-06-02 Telephone Yazmin, 1.2.840.9 [id number] Methodi 00:00:00 00:00:[address] 3.430.2.7 Hospit a .3.150807 l .8 2020-05-13 2020-05-13 Orders Provider, 1.2.840.1 [id number] 2099 626691 Methodi 00:00:00 00:00:00 Only Historical 90264.1.1 108 s t 3.430.2.7 Hospit a .3.319008 l .8 2020-05-09 2020-05-09 Telephone Carol Ann, 1.2.840.1 [id number] Methodi 00:00:00 00:00:00 Sarai CorbinChelsie 59205.1.1 660 s t 3.430.2.7 Hospit a .3.357984 l .8 2020-05-09 2020-05-09 Telephone Yazmin, 1.2.840.7 [id number] Methodi 00:00:00 00:00:[address] 3.430.2.7 Hospit a .3.343402 l .8 2020-05-08 2020-05-08 Telephone Yazmin, 1.2.840.8 [id number] Methodi 00:00:00 00:00:[address] 3.430.2.7 Hospit a .3.125066 l .8 2020-05-07 2020-05-07 [facility], 1.2.840.6 [id number] 21 [id number] Methodi 00:00:00 00:00:[address] 3.430.2.7 Hospit a .3.020709 l .8 2020-05-05 2020-05-05 [facility], 1.2.840.9 [id number] 21 [id number] Methodi 00:00:00 00:00:[address] 3.430.2.7 Hospit a .3.773413 l .8 2020-04-25 2020-05-03 [facility], 1.2.840.1 [id number] 2100 628295 Methodi 17:33:00 13:39:00 Encounter Ray [address]6560.1.[address] 3.430.2.7 Hospit a .3.323329 l .8 2020-04-28 2020-04-28 Anesthesia Tomas Pinon 1.2.840.1 [id number] Methodi 13:38:00 19:40:00 Event Justine Catalan 88305.1.[address] 3.430.2.7 Hospit a .3.808605 l .8 2020-04-28 2020-04-28 [facility], 1.2.840.1 [id number] 35581 66124 Methodi 13:00:00 17:10:[address] 3.430.2.7 Hospit a .3.025000 l .8 2020-04-25 2020-04-25 [facility], 1.2.840.1 [id number] 2100 266565 Methodi 10:00:00 17:32:00 Encounter Ray [address]148.1.[address] 3.430.2.7 Hospit a .3.858781 l .8 2020-04-25 2020-04-25 [facility], 1.2.840.1 [id number] 07505 70683 Methodi 11:43:50 13:44:26 Visit Ray 13719.1.[address] 3.430.2.7 Hospit a .3.060794 l .8 2020-04-25 2020-04-25 Travel 1.2.840.1 1.2.313.787 1286 361738 Methodi 00:00:00 00:00:[address] 3.430.2.7 0.2.7.3.698 Ho spita .3.471597 084.8 l .8 2020-04-24 2020-04-24 Prep for Carol Ann, 1.2.840.1 [id number] 2 [id number] Methodi 00:00:00 00:00:00 Surgery Sarai CorbinChelsie 41512.1.1 524 s t 3.430.2.7 Hospit a .3.272558 l .8 2020-04-22 2020-04-22 Telephone Meli, 1.2.840.1 [id number] 678 [id number] Methodi 00:00:00 00:00:[address] 3.430.2.7 Hospit a .3.467923 l .8 2020-04-22 2020-04-22 Travel 1.2.840.1 1.2.936.434 8285 418204 Methodi 00:00:00 00:00:[address] 3.430.2.7 0.2.7.3.698 Ho spita .3.529609 084.8 l .8 2020-04-21 2020-04-21 Emergency Geraldo Tapia 1.2.840.1 [id number] 2 [id number] Methodi 06:51:00 10:43:[address] 3.430.2.7 Hospit a .3.904913 l .8 2020-04-21 2020-04-21 Orders Carol Ann, 1.2.840.1 [id number] Methodi 00:00:00 00:00:00 Only Sarai Corbin. 90312.1.1 550 s t 3.430.2.7 Hospit a .3.323487 l .8 2020-04-16 2020-04-16 Telephone Carol Ann, 1.2.840.1 [id number] Methodi 00:00:00 00:00:00 Sarai M. 26570.1.1 673 s t 3.430.2.7 Hospit a .3.237636 l .8 2020-04-10 2020-04-10 Telephone Yazmin, 1.2.840.0 [id number] Methodi 00:00:00 00:00:[address] 3.430.2.7 Hospit a .3.955085 l .8 2020-04-07 2020-04-07 Telephone Nahum, 1.2.840.1 [id number] 2099 814055 Methodi 00:00:00 00:00:[address] 3.430.2.7 Hospit a .3.725079 l .8 2020-04-01 2020-04-01 Orders Provider, 1.2.840.1 [id number] 2100 604561 Methodi 00:00:00 00:00:00 Only Historical 60149.1.1 049 s t 3.430.2.7 Hospit a .3.269458 l .8 2020-03-31 2020-03-31 Travel 1.2.840.1 1.2.300.842 3986 053528 Methodi 00:00:00 00:00:[address] 3.430.2.7 0.2.7.3.698 Ho spita .3.079890 084.8 l .8 2020-03-27 2020-03-27 Telephone Paula, Min 1.2.840.0 [id number] Methodi 00:00:00 00:00:[address] 3.430.2.7 Hospit a .3.429685 l .8 Results Test Description Test Time Test Comments Results Result Comments Source Novel Coronavirus 2019 Inhouse 2021-08-03 18:08:00 Test Item Value Reference Range Interpretation Comme nts Novel Coronavirus 2018 Negative Negative Posit bruno results are indicative of the Inhouse (test code = presenc e vjLBUB-QaL-0 RNA, clinical COVNONPUI) correlation wit h patient historyand other diagnosti c information is necessary to de terminepatient infection status. Positiv e results do not rule outbacterial in fection or co-infection with other viru ses. Negative results do not preclude SA RS-CoV-2 infection andshould not b e used as the sole basis for patient man agementdecisions. Negative result s must be combined with otherclinical o bservations, patient history, and ep idemiologicalinformation. Detection of SA RS-CoV-2 RNA may be affected bysamp le collection methods, storage conditi ons, and/or stageof infection. Iesha l RNA mutations, vaccinations, a ntiviraltherapeutics, antibiotics, ch emotherapeutic orimmunosuppres ashley drugs have not been evaluated for e ffectson detection. Results are for the identification of SARS-CoV-2 RNA usingreal-time (RT) polymerase sedrick n reaction (PCR) technologyfor t he qualitative detection of nucleic acid s from mthZFYR-OjH-5 virus and diagn osis of SARS-CoV-2 virusinfection. It is an Emergency Use Authorization ( EUA) testauthorized by the U.S. FDA. BASIC METABOLIC [id number] 09:37:00 Test Item Value Reference Range Interpretation Comments SODIUM (test code = NA) 144 mEq/L 134-147 N POTASSIUM (test code = 3.3 mEq/L 3.4-5.0 L K) CHLORIDE (test code = 106 mEq/L 100-108 N CL) CARBON DIOXIDE (test 29 mEq/l 21-33 N code = CO2) ANION GAP (test code = 13 0-20 N GAP) GLUCOSE (test code = 118 mg/dL 70-110 H GLU) BLOOD UREA NITROGEN 16 mg/dL 7-18 N (test code = BUN) GLOMERULAR FILTRATION 45.1 80-90 L Units of measure = RATE (test code = GFR) ml/mi n/1.73 m2 CREATININE (test code = 1.2 mg/dL 0.6-1.3 N CREAT) CALCIUM (test code = 9.0 mg/dL 8.0-10.5 N CA) PROTHROMBIN [id number] 09:32:00 Test Item Value Reference Range Interpretation Comments PROTHROMBIN TIME 12.7 SECONDS 9.3-12.9 N PATIENT (test code = [...] o prevent recurre nt infarct). CBC W/AUTO [id number] 09:32:00 Test Item Value Reference Range Interpretation Comments WHITE BLOOD CELL (test code = 7.7 x10 3/uL 4.5-11.0 N WBC) RED BLOOD CELL (test code = 4.55 x10 6/uL 3.54-5.02 N RBC) HEMOGLOBIN (test code = HGB) 10.7 g/dL 11.0-15.0 L HEMATOCRIT (test code = HCT) 37.1 % 33.0-45.0 N MEAN CELL VOLUME (test code = 81.5 fL 81.0-99.0 N MCV) MEAN CELL HGB (test code = MCH) 23.5 pg 27.0-33.0 L MEAN CELL HGB CONCETRATION 28.8 g/dL 33.0-37.0 L (test code = MCHC) RED CELL DISTRIBUTION WIDTH CV 16.0 % 11.5-14.5 H (test code = RDW) RED CELL DISTRIBUTION WIDTH SD 47.2 fL 37.0-54.0 N (test code = RDW-SD) PLATELET COUNT (test code = 226 x10 3/uL 150-400 N PLT) MEAN PLATELET VOLUME (test code 9.6 fL 7.0-9.0 H = MPV) NEUTROPHIL % (test code = NT%) 67.2 % 56.0-77.0 N IMMATURE GRANULOCYTE % (test 0.4 % 0.0-2.0 N code = IG%) LYMPHOCYTE % (test code = LY%) 21.4 % 14.0-32.0 N MONOCYTE % (test code = MO%) 9.9 % 4.8-9.0 H EOSINOPHIL % (test code = EO%) 0.7 % 0.3-3.7 N BASOPHIL % (test code = BA%) 0.4 % 0.0-2.0 N NUCLEATED RBC % (test code = 0.0 % 0-0 N NRBC%) NEUTROPHIL # (test code = NT#) 5.16 x10 3/uL 2.0-7.6 N IMMATURE GRANULOCYTE # (test 0.03 x10 3/uL 0.00-0.03 N code = IG#) LYMPHOCYTE # (test code = LY#) 1.64 x10 3/uL 1.0-3.8 N MONOCYTE # (test code = MO#) 0.76 x10 3/uL 0.1-0.8 N EOSINOPHIL # (test code = EO#) 0.05 x10 3/uL 0.0-0.2 N BASOPHIL # (test code = BA#) 0.03 x10 3/uL 0.0-0.2 N NUCLEATED RBC # (test code = 0.00 x10 3/uL 0.0-0.1 N NRBC#) MANUAL DIFF REQUIRED (test code NO = MDIFF) ECG 12 [id number] 15:14:00 Test Item Value Reference Range Interpretation Comments Lab Interpretation (test code = Normal 16100-5) ND MjbnezMIW-[id number] 08:47:00 Test Item Value Reference Range Interpretation Comments ACT-ISTAT (test code 249 SEC 74-137 H Perform ed by certified = ACTI) 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 [facility] - XR CHEST 1 [id number] 00:00:00 [facility] ELEN HELENAName: LIO WATTS : 1955 Sex: F FAX: Michael RahmanLele Kristen DO [phone] [place]: St: [facility] FAX: Jean Paul Scales MD [phone] FAX: Bahman Chopra [phone] Name: LIO WATTS [facility] Elen Garcia : 1955 Age/S: 66/F [address] [place] [address] Unit #: [id number] Loc: [place] [address] Phys: Bahman Chopra [facility] Acct: [id number] Dis Date: Status:ADM IN PHONE #: [phone] Exam Date: 06/17/2021 1320 FAX #: [phone] Reason: WATCHMAN EXAMS: CPT CODE: [id number] XR CHEST 1 V 63131 PROCEDURE INFORMATION: Exam: XR Chest Examdate and [...] failure/volume loading. 2. Subsegmental atelectasis bilateral. at 1333 Reported and signed by: Lambert Vega M.D. CC: Lele Rahman DO; Mike Lund MD; Bahman Chopra Technologist: RT Taylor(R) Trndestinyrd Date/Time/By: 06/17/2021 (3729) : By: IselaKWL Orig Print D/T: S: 06/17/2021 (0545) PAGE 1 Signed ReportCOVID 19 Asymptomatic IH [id number] 12:29:00 Test Item Value Reference Range Interpretation [...] the t est hasbeen authori zed by [facility] under an Em ergency Use Authorizati on(EUA) for use by labo ratories certified under the CLIA thatmeet the requirements to perform moderate, high or waivedcomplexit y tests. BASIC METABOLIC [id number] 11:37:00 Test Item Value Reference Range Interpretation [...] code = 9.0 mg/dL 8.0-10.5 N CA) [id number] 11:37:00 Test Item Value Reference Range Interpretation Comments PREALBUMIN (test code = PREALB) 24.3 mg/dL 16.0-40.0 N PROTHROMBIN [id number] 11:03:00 Test Item Value Reference Range Interpretation [...] o prevent recurre nt infarct). CBC W/AUTO [id number] 10:59:00 Test Item Value Reference Range Interpretation [...] 0.0-0.1 N NRBC#) - XR CHEST 2 [id number] 00:00:00 [facility] 1955 Sex: F FAX: Lele Olivera DO [phone] [place]: St: PRE FAX: Jean Paul Scales MD [phone] Name: LIO WATTS [facility] : 1955 Age/S: 66/F [address] [place] [address] Unit #: [id number] Loc: [place] [address] Phys: Mike Lund [facility] [id number] Dis Date: Status: PRE [facility] PHONE #: [phone] Exam Date: 06/16/2021 1120 FAX #: [phone] Reason: PREOP EXAMS: CPT CODE: [id number] XR CHEST 2 V 10213 PROCEDURE INFORMATION: Exam: XR Chest Exam date [...] MD Technologist: RT Andree(R) Trnscrd Date/Time/By: 06/16/2021 (1130) : By: [email or web address] Orig Print D/T: S: 06/16/2021 (0075) PAGE 1 Signed ReportGastrointestinal [id number] 04:35:05 Test Item Value Reference Interpretation Comments [...] Rotavirus PCR (test Not Detected code = 2919210) Salmonella PCR (test Not Detected code = [...] PCR Not Detected (test code = 7124) [facility] [id number] 19:17:40EXAMINATION: XR ABDOMEN 1 CLINICAL HISTORY: R19.7 Diarrhea unspecified, R14.0 Abdominal [...] Osseous structures are stable. Cholecystectomy clips are noted.[id number] [place] [facility] 1 [id number] 19:41:02EXAMINATION: OR FL < 1 HOUR C-arm fluoroscopy was requested in OR. Location: [facility] OR room 6 Procedure: EGD WITH BOTOX INJECTION INTO THE PYLORUS, ENDOFLIP, ON TABLE ESOPHAGRAM (N/A ) Start: 1140 End:1222 Fluoro Time: .19sec Dose: 7.8mGy Tech: ChiloB IMPRESSION: Intraoperative fluoroscopic images. Radiologist was not present during the examination.Separate operative report will be issued by the physician performing the procedure. [id number] Interface, Radiology Results 10/08/2020 2:44 PM CDT EXAMINATION: OR FL < 1 HOURC- arm fluoroscopy was requested in OR. Location: [facility] OR room 6 Procedure: EGD WITH BOTOX INJECTION INTO THE PYLORUS, ENDOFLIP, ON TABLE ESOPHAGRAM (N/A ) Start: 1140 End:1222 FluoroTime: .19sec Dose: 7.8mGy Tech: A.BIMPRESSION:Intraoperative fluoroscopic images. Radiologist was not present during the examination.Separate operative report will be issued by the physician performingthe procedure.[id number] 2020-09-08 19:30:47 Test Item Value Reference Range Interpretation Comments Case number (test [id number] code = 5540266) Surgical pathology See link below for PDF report (test code = Lab Report 2255) Result status (test This is Supplemental code = 2543043) Report for [id number] [facility] 1 Vw [id number] 23:06:58EXAMINATION: XR CHEST 1 VW PORTABLE HISTORY: [...] enlarged, similar to prior. Bilateral shoulder arthroplasties. [id number] Interface, Radiology Results - 09/06/2020 6:09PM CDT [...] silhouette is enlarged, similar to prior.Bilateral shoulder arthroplasties.[id number] Hermann Pearland HospitalVgsemyuvPbcqsu7874-57-16 16:47:23Kirit Flood MD 09/05/2020 11:48 [address]: [...] RSI: Yes Number of Attempts at Approach: [address] [place], [place] [address]EC 12 [id number] 23:21:56 Test Item Value Reference Range Interpretation [...] T wave abnormality, consider anterior ischemia-Abnormal ECG- [facility] HospitalCOVID-19 qualitative [id number] 22:48:41 Test Item Value Reference Range Interpretation Comments Interpretation (test Negative results do code = 2236749) not preclude 2019-nCoV infection and should not be used as the sole basis for treatment or other patient management decisions. Negative results must be combined with clinical observations, patient history, and epidemiological information. COVID-19 qualitative Not-Detected Not-Detected RT-PCR result (test code = 72297-4) COVID-19 qualitative See link below for C ase Number: RT-PCR (test code = PDF Lab Report [id number]) [facility] 16:31:00 Test Item Value Reference Range Interpretation Comments POC Activated Clotting Time (test code 153 s = POC Activated Clotting Time) [place] [id number] 16:31:00 Test Item Value Reference Range Interpretation Comments POC Activated Clotting Time (test code 153 s = POC Activated Clotting Time) [address]04-09 16:31:00 Test Item Value Reference Range Interpretation Comments POC Activated Clotting Time (test code 153 s = POC Activated Clotting Time) [address]04-09 16:31:00 Test Item Value Reference Range Interpretation Comments POC Activated Clotting Time (test code 153 s = POC Activated Clotting Time) [place] 721331-04-09 16:31:00 Test Item Value Reference Range Interpretation Comments POC Activated Clotting Time (test code 153 s = POC Activated Clotting Time) [place] 721331-04-09 16:31:00 Test Item Value Reference Range Interpretation Comments POC Activated Clotting Time (test code 153 s = POC Activated Clotting Time) [place] 721331-04-09 16:31:00 Test Item Value Reference Range Interpretation Comments POC Activated Clotting Time (test code 153 s = POC Activated Clotting Time) [address]04-09 14:37:00 Test Item Value Reference Range Interpretation Comments POC Activated Clotting Time (test code 454 s = POC Activated Clotting Time) [place] 721331-04-09 14:37:00 Test Item Value Reference Range Interpretation Comments POC Activated Clotting Time (test code 454 s = POC Activated Clotting Time) [address]04-09 14:37:00 Test Item Value Reference Range Interpretation Comments POC Activated Clotting Time (test code 454 s = POC Activated Clotting Time) [address]04-09 14:37:00 Test Item Value Reference Range Interpretation Comments POC Activated Clotting Time (test code 454 s = POC Activated Clotting Time) [address]04-09 14:37:00 Test Item Value Reference Range Interpretation Comments POC Activated Clotting Time (test code 454 s = POC Activated Clotting Time) [facility]in[id number] 14:37:00 Test Item Value Reference Range Interpretation Comments POC Activated Clotting Time (test code 454 s = POC Activated Clotting Time) [facility] PointeNfkxqfhXDXRTVJBGF2527-25-40 14:37:00 Test Item Value Reference Range Interpretation Comments POC Activated Clotting Time (test code 454 s = POC Activated Clotting Time) [facility] PointeQetkiudUUAMZLATFY4429-08-93 14:13:00 Test Item Value Reference Range Interpretation Comments POC Activated Clotting Time (test code 354 s = POC Activated Clotting Time) [facility] PointeRarlyngSUIQZZFKBB1780-98-99 14:13:00 Test Item Value Reference Range Interpretation Comments POC Activated Clotting Time (test code 354 s = POC Activated Clotting Time) [facility] PointeYgrggykMOYSCYGUBF6287-11-19 14:13:00 Test Item Value Reference Range Interpretation Comments POC Activated Clotting Time (test code 354 s = POC Activated Clotting Time) [facility] PointeNnbyjczGYRZTMVYEU2177-42-89 14:13:00 Test Item Value Reference Range Interpretation Comments POC Activated Clotting Time (test code 354 s = POC Activated Clotting Time) [facility]intePvioawvYVXUZWOQUH9405-80-91 14:13:00 Test Item Value Reference Range Interpretation Comments POC Activated Clotting Time (test code 354 s = POC Activated Clotting Time) [facility] PointeZfidnijXKYHUZXADU5022-84-26 14:13:00 Test Item Value Reference Range Interpretation Comments POC Activated Clotting Time (test code 354 s = POC Activated Clotting Time) [facility]inteQlkcqasMTYMCLJYYJ0667-02-44 14:13:00 Test Item Value Reference Range Interpretation Comments POC Activated Clotting Time (test code 354 s = POC Activated Clotting Time) [facility] LJPBTVX4442-05-85 10:37:00Negative (08/29/20 5:37 AM) [facility] ZJHHK2247-16-73 10:37:89916Gtqbejkv HermannCHEM PANEL 2020-08-29 10:37:0028[facility] HermannCHEM LBANN6753-72-45 10:37:001.01[facility] HermannCHEM BECOW7091-13-82 10:37:23781Jnobqhpa HermannCHEM MQFXI7526-47-57 10:37:003.8[facility] HermannCHEM ORMYF7528-46-80 10:37:13288Jvdhpqog HermannCHEM CZIHN6334-39-59 10:37:0028[facility] HermannCHEM RMVHX9366-41-47 10:37:009.8 [facility]annCHEM SQNPR7760-64-02 10:37:0011.8[facility] HermannCHEM PANEL 2020-08-29 10:37:0059[facility] HermannCHEM FDBAD4340-31-98 10:37:002.9[facility] XlpprixNJEAUQSUVM3360-47-99 10:37:006.8[facility] QknffgsWHUDPYTCRS3948-90-68 10:37:004.47[facility] DobvaigTOEBMHMOWU3184-23-75 10:37:0010.6[facility] HRGNAQCBRJ5705-14-88 10:37:0034.0[facility] AodiozxWXWBATGSPF0535-23-29 10:37:00 76.1[facility] PxaacptIXVQAXGHDJ2195-95-38 10:37:00 Test Item Value Reference Range Interpretation Comments MCH (test code = MCH) 23.8 pg 27.0-31.0 [facility] KwtcnwhRXMDAPRBCH2933-87-73 10:37:0031.3[facility] HermannHEMATOLOGY 2020-08-29 10:37:0018.2[facility] JzzwcgoDLAWCDHUMU8630-68-81 10:37:45088Gcoucxis BgwpcrjWSPEHEVUET7829-75-61 10:37:007.5[facility] EogwypaWYNXJJSIWT4322-49-93 10:37:00 Test Item Value Reference Range Interpretation Comments PT (test code = PT) 12.8 s 12.0-14.7 [facility] BkcidvhJZIWBBYDEN5138-61-06 10:37:00 Test Item Value Reference Range Interpretation Comments INR (test code = INR) 0.97 1 0.85-1.17 [facility] LatxrffWJYBYPZKAL3371-13-60 10:37:00 Test Item Value Reference Range Interpretation Comments PTT (test code = PTT) 25.0 s 22.9-35.8 [facility] TqvsvcoTZXKXAYKMV1261-17-93 10:37:0070.5[facility] 2020-08-29 10:37:0018.8[facility] QnnvakxMCAZWFJECT1029-49-04 10:37:009.5[facility] AvmyozrGRJQPCZVBE7369-78-66 10:37:000.9[facility] YofjxufLCZWOWQEMY3376-06-78 10:37:000.3[facility] WvvuimrPFHQNRGONE9863-06-38 10:37:004.8[facility] UPBLQJOIOW3798-97-24 10:37:001.3[facility] YeiyozeSKMLLUCJHX0763-32-45 10:37:000.6 [facility] LfragcuQNYVKXICNR9026-31-77 10:37:000.1[facility]annHEMATOLOGY 2020-08-29 10:37:001+ *ABN*(08/29/20 5:37 AM)[facility] WxxngwvUUALZECBAB1266-70-88 10:37:00Not Detected (08/29/20 5:37 AM)[facility]ann[facility] RESULTS 2020-08-29 10:37:00Negative (08/29/20 5:37 AM)[facility]annCHEM RYWNK3148-93-47 10:37:50872Gwevqzrl HermannCHEM AORRI0848-96-11 10:37:0028[facility]annCHEM XAZVG4553-56-80 10:37:001.01[facility]annCHEM IFCON8163-62-60 10:37:90647 [facility]annCHEM UKMEJ3016-46-23 10:37:003.8[facility]annCHEM PANEL 2020-08-29 10:37:43032Vfabjxwq HermannCHEM YCUOZ6116-28-36 10:37:0028[facility]annCHEM VXCEZ9736-66-49 10:37:009.8[facility]annCHEM FZJCQ5901-59-00 10:37:0011.8[facility]annCHEM BRLNU7134-41-53 10:37:0059[facility]annCHEM TNMWG4206-80-51 10:37:002.9[facility] ZoaarqrOZLEFYFMEP1333-77-20 10:37:006.8 [facility] XefthsaCQTSWKOGIH2086-25-87 10:37:004.47[facility]annHEMATOLOGY 2020-08-29 10:37:0010.6[facility] PygkeytGUVNQSJSXC8738-50-21 10:37:0034.0[facility] NduvgydVNCXSZKFJO9094-66-16 10:37:0076.1[facility] QdcajtoGHTRZHKSJX3879-67-83 10:37:00 Test Item Value Reference Range Interpretation Comments MCH (test code = MCH) 23.8 pg 27.0-31.0 [facility] YizwzprZMXWHQRUVI8680-21-44 10:37:0031.3[facility]annHEMATOLOGY 2020-08-29 10:37:0018.2[facility] MqhnqskUPXHHWXFIT8991-22-91 10:37:72875Ufhpvtzu UxydwqkNAUWHFAGVU2548-65-14 10:37:007.5[facility] OjbocljEOKHMIAIBF4243-89-13 10:37:00 Test Item Value Reference Range Interpretation Comments PT (test code = PT) 12.8 s 12.0-14.7 [facility] SxbxbitHNBLFTJDHS6576-50-03 10:37:00 Test Item Value Reference Range Interpretation Comments INR (test code = INR) 0.97 1 0.85-1.17 [facility] JkozwitWQHMUBJFDF9841-57-20 10:37:00 Test Item Value Reference Range Interpretation Comments PTT (test code = PTT) 25.0 s 22.9-35.8 [facility] ReiilqkJMBAUICRXT4965-21-76 10:37:0070.5[facility]annHEMATOLOGY 2020-08-29 10:37:0018.8[facility] YoproulFTNYFUTFYK8230-76-81 10:37:009.5[facility] FtaskrfMNOBDCCTKC7976-57-24 10:37:000.9[facility] BmjfuurRACYGMGGAZ2287-03-42 10:37:000.3[facility] KqiqhgnGKBQPMLHPY1558-19-47 10:37:004.8[facility] [place] SVIBVZMVDF8257-24-64 10:37:001.3[facility] YiuladuRCNZZMYNOH8831-18-28 10:37:000.6 [facility] HtvfppqEFECLYSSZQ0703-29-85 10:37:000.1[facility]annHEMATOLOGY 2020-08-29 10:37:001+ *ABN*(08/29/20 5:37 AM)[facility] UufshuoIEKBRSZJBC1268-35-88 10:37:00Not Detected (08/29/20 5:37 AM)[facility]annBL[facility] B[facility] RESULTS 2020-08-29 10:37:00Negative (08/29/20 5:37 AM)[facility]annCHEM DCJQD6992-18-07 10:37:34807Iylpwrug HermannCHEM BZOKN6070-35-07 10:37:0028[facility]annCHEM EHSTX7670-74-75 10:37:001.01[facility]annCHEM IOFMD6996-58-00 10:37:78656 [facility]annCHE[facility] OHJNP0535-60-02 10:37:003.8[facility]annCHEM PANEL 2020-08-29 10:37:06065Husmxlla HermannCHEM FQKVX4582-45-89 10:37:0028[facility]annCHEM DRVHY4313-35-16 10:37:009.8[facility]annCHEM AZKZI5829-43-46 10:37:0011.8[facility]annCHEM WCEEQ2866-67-73 10:37:0059[facility]annCHEM YHATC4937-98-92 10:37:002.9[facility] MmrmhmvYTMUXPGBHD5867-01-86 10:37:006.8 [facility] JludlmcUVWOFUPCIK9289-21-93 10:37:004.47[facility]annHEMATOLOGY 2020-08-29 10:37:0010.6[facility] UxsjcieKLSNKHFXNM1892-14-16 10:37:0034.0[facility] ShmfrabMEVRNOCOTA9047-34-23 10:37:0076.1[facility] RqvxmroISUPXUSYYK5556-84-92 10:37:00 Test Item Value Reference Range Interpretation Comments MCH (test code = MCH) 23.8 pg 27.0-31.0 [facility] WqelbdzRSVPFEKSXI1369-95-29 10:37:0031.3[facility]annHEMATOLOGY 2020-08-29 10:37:0018.2[facility] MyvdkscEBXNEFYLAB8489-20-23 10:37:46439Keovllwm CgoparkXMXDYABWJA7764-84-39 10:37:007.5[facility] BjjnswbAGFKJOLDHI7124-20-08 10:37:00 Test Item Value Reference Range Interpretation Comments PT (test code = PT) 12.8 s 12.0-14.7 [facility] LjboohiWYQLMPLOOX6969-86-40 10:37:00 Test Item Value Reference Range Interpretation Comments INR (test code = INR) 0.97 1 0.85-1.17 [facility] RnqvyyaGNLTMIVLAK9567-76-67 10:37:00 Test Item Value Reference Range Interpretation Comments PTT (test code = PTT) 25.0 s 22.9-35.8 [facility] NavvbeeTLIBSSWQLH9555-93-50 10:37:0070.5[facility]annHEMATOLOGY 2020-08-29 10:37:0018.8[facility] RthnpvwKHHXJEQANS3327-63-49 10:37:009.5[facility] IcqwgroGNVSMZQLUV5137-02-75 10:37:000.9[facility] QfwadurLJPFQGBCGN6952-24-05 10:37:000.3[facility] RbbsbllYWCRRZSRAY2052-56-22 10:37:004.8[facility] TIIJEXRKGQ9467-57-26 10:37:001.3[facility] WxhbwyfKBJYGGHOXM7078-31-75 10:37:000.6 [facility] TnsxavtLQMETQGYXV8460-89-78 10:37:000.1[facility]annHEMATOLOGY 2020-08-29 10:37:001+ *ABN*(08/29/20 5:37 AM)[facility] DbhogcnUWFFUVQECM2909-36-34 10:37:00Not Detected (08/29/20 5:37 AM)[facility]annBLOOD BANK RESULTS 2020-08-29 10:37:00Negative (08/29/20 5:37 AM)[facility]annCHEM MYCAO2030-98-81 10:37:10608Xkcazruo HermannCHEM TIOKV4729-36-85 10:37:0028[facility]annCHEM IIROH0724-01-31 10:37:001.01[facility]annCHEM BMNPU6127-91-49 10:37:40601 [facility]annCHE[facility] MXKPP1851-45-35 10:37:003.8[facility]annCHEM PANEL 2020-08-29 10:37:87704Mwssvxbc HermannCHEM KXIDG4804-90-64 10:37:0028[facility]annCHEM HTVAK7312-95-86 10:37:009.8[facility]annCHEM CKWLT0939-01-52 10:37:0011.8[facility]annCHEM MEXTV4578-37-54 10:37:0059[facility]annCHEM TWYMH9062-31-34 10:37:002.9[facility] OussxbrEWLILGNOVK9926-64-41 10:37:006.8 [facility] RmdloneLJMNWEOGRH3129-43-14 10:37:004.47[facility]annHEMATOLOGY 2020-08-29 10:37:0010.6[facility] DdvoqtwNVFKGBNREG8373-40-25 10:37:0034.0[facility] HholqzaKOVLDBOAZK5264-81-18 10:37:0076.1[facility] UaxxgshSEAYIHKCVX0298-29-56 10:37:00 Test Item Value Reference Range Interpretation Comments MCH (test code = MCH) 23.8 pg 27.0-31.0 [facility] RrtdruuJLSECUZNYG3710-74-58 10:37:0031.3[facility]annHEMATOLOGY 2020-08-29 10:37:0018.2[facility] GuqxnepKAASFTNZZM8248-56-23 10:37:21016Lzuuhkdp GgrbnceNSOFGVAHSO3257-66-93 10:37:007.5[facility] CtduexgLTGFEMBMSP2551-39-55 10:37:00 Test Item Value Reference Range Interpretation Comments PT (test code = PT) 12.8 s 12.0-14.7 [facility] TfhingvDGFCLZJSOQ4851-73-77 10:37:00 Test Item Value Reference Range Interpretation Comments INR (test code = INR) 0.97 1 0.85-1.17 [facility] QbxwpqxUOPOWFFEST9949-32-50 10:37:00 Test Item Value Reference Range Interpretation Comments PTT (test code = PTT) 25.0 s 22.9-35.8 [facility] RlaxfmnPLREPBOQCW9807-92-89 10:37:0070.5[facility]annHEMATOLOGY 2020-08-29 10:37:0018.8[facility] LghqezlHCSHDAROZD3145-61-86 10:37:009.5[facility] AymglyeFHLNAFINBV5388-95-16 10:37:000.9[facility] CoameuqYAAYORWCGQ2672-80-72 10:37:000.3[facility] TkmkjyaBZSIUYLGVR9387-79-82 10:37:004.8[facility] IZDYITDHEZ4769-94-09 10:37:001.3[facility] OssdkcvLNRZLTXUCH3468-13-43 10:37:000.6 [facility] PkkyigqYGQHHXGKOL0103-69-36 10:37:000.1[facility]annHEMATOLOGY 2020-08-29 10:37:001+ *ABN*(08/29/20 5:37 AM)[facility] EqtnuahQCAXZROKAJ2034-36-19 10:37:00Not Detected (08/29/20 5:37 AM)[facility]annBLOOD BANK RESULTS 2020-08-29 10:37:00Negative (08/29/20 5:37 AM)[facility]annCHEM JDHSW4056-76-07 10:37:21303Akydhdzu HermannCHEM MTMFW5516-47-47 10:37:0028[facility]annCHEM MMJOV6012-07-68 10:37:001.01[facility]annCHEM TWZYC2863-95-80 10:37:65095 [facility]annCHE[facility] FXDLW4588-65-10 10:37:003.8[facility] HermannCHEM PANEL 2020-08-29 10:37:91892Fftgpzkj HermannCHEM ZZHSD6187-89-82 10:37:0028[facility]annCHEM OTQZG5401-25-59 10:37:009.8[facility]annCHEM YQEZN8077-37-44 10:37:0011.8[facility] HermannCHEM OFMQQ4718-90-94 10:37:0059[facility]annCHEM NKUGF4892-42-62 10:37:002.9[facility] HjpamlhQWPPMEMJGX6477-48-76 10:37:006.8 [facility] WwzlwbwOPMYQKABUG5072-80-80 10:37:004.47[facility]annHEMATOLOGY 2020-08-29 10:37:0010.6[facility] QljrvqeSJQFAHZIPO8430-64-58 10:37:0034.0[facility] XscqdsdRQIPJRQZCJ0751-10-24 10:37:0076.1[facility] WposdbqHFKWCIDSLX3533-75-64 10:37:00 Test Item Value Reference Range Interpretation Comments MCH (test code = MCH) 23.8 pg 27.0-31.0 [facility] IofsxeiILCNJDGQTY4856-28-80 10:37:0031.3[facility]annHEMATOLOGY 2020-08-29 10:37:0018.2[facility] HugyplgLKOWVDQWNW4178-56-51 10:37:88823Vjcgyajf LjnwwtbPMKRIOHUXI6780-99-12 10:37:007.5[facility] RwtfxcaZMFTKDAEBI0853-75-77 10:37:00 Test Item Value Reference Range Interpretation Comments PT (test code = PT) 12.8 s 12.0-14.7 [facility] VimoyvdKMUTJHAFMP6897-63-20 10:37:00 Test Item Value Reference Range Interpretation Comments INR (test code = INR) 0.97 1 0.85-1.17 [facility] ClwifdjWIVVUBEBPU0609-02-82 10:37:00 Test Item Value Reference Range Interpretation Comments PTT (test code = PTT) 25.0 s 22.9-35.8 [facility] QnbsbblTJAXNWCRIU3407-21-36 10:37:0070.5[facility]annHEMATOLOGY 2020-08-29 10:37:0018.8[facility] AqachlsWZEWYHZYQW1366-04-65 10:37:009.5[facility] FaduuvsLQXDFNMQEV8868-54-31 10:37:000.9[facility] PhjelzdTELOVGZNMD2788-83-00 10:37:000.3[facility] BwykegvLCKIWPHJED0101-29-64 10:37:004.8[facility] WMUTWFRCYJ4155-01-95 10:37:001.3[facility] LgbtvbxPWCXFEIYEV8899-00-86 10:37:000.6 [facility] VydxbwmRTEKVRZTUW0885-66-73 10:37:000.1[facility]annHEMATOLOGY 2020-08-29 10:37:001+ *ABN*(08/29/20 5:37 AM)[facility] OrrlqfmVERQUBJWBN7483-19-29 10:37:00Not Detected (08/29/20 5:37 AM)[facility]annBLOOD BANK RESULTS 2020-08-29 10:37:00Negative (08/29/20 5:37 AM)[facility] HermannCHEM DAXNY9906-31-37 10:37:55196Ufduxdyg HermannCHEM JPIGH6801-49-24 10:37:0028[facility]annCHEM AMWQK8286-08-62 10:37:001.01[facility]annCHEM XBEGA0968-10-57 10:37:04569 [facility]annCHEM UVBNN4281-73-78 10:37:003.8[facility]annCHEM PANEL 2020-08-29 10:37:12227Qgvujtca HermannCHEM CRLUP2298-43-11 10:37:0028[facility] HermannCHEM HTNOU6298-08-18 10:37:009.8[facility] HermannCHEM NGXOX5313-97-03 10:37:0011.8[facility] HermannCHEM CJIZF6848-28-99 10:37:0059[facility]annCHEM CQORP0172-68-39 10:37:002.9[facility] HrijdqaBTEKKRHPQM9294-01-28 10:37:006.8 [facility] JttrxgvCOONDJKSHM1690-26-67 10:37:004.47[facility]annHEMATOLOGY 2020-08-29 10:37:0010.6[facility] DqbursaWROFHAJOFA9626-30-21 10:37:0034.0[facility] MbdollaDTOMALTFHW2946-43-79 10:37:0076.1[facility] VeinlswPYPRRQJULC6938-93-93 10:37:00 Test Item Value Reference Range Interpretation Comments MCH (test code = MCH) 23.8 pg 27.0-31.0 [facility] EifhjdjVZJKASLKTP6722-79-62 10:37:0031.3[facility]annHEMATOLOGY 2020-08-29 10:37:0018.2[facility] GawmpsuKXGLCDALVM2896-74-82 10:37:39212Rvusmekx JgmaspaRYWNAGSUJZ0609-21-42 10:37:007.5[facility] YoszwndCZCZLARQYZ3041-19-90 10:37:00 Test Item Value Reference Range Interpretation Comments PT (test code = PT) 12.8 s 12.0-14.7 [facility] NmoleygNGAARVHVEJ1698-88-89 10:37:00 Test Item Value Reference Range Interpretation Comments INR (test code = INR) 0.97 1 0.85-1.17 [facility] XjnuccbUYKPKOYMNC0483-31-32 10:37:00 Test Item Value Reference Range Interpretation Comments PTT (test code = PTT) 25.0 s 22.9-35.8 [facility] XrsriemRHMQLYMZIO9586-23-10 10:37:0070.5[facility]annHEMATOLOGY 2020-08-29 10:37:0018.8[facility] JdeigpmODAYDCROYJ3370-39-11 10:37:009.5[facility] UtbfuiyRVSLSPDAAW1506-39-55 10:37:000.9[facility] KsrgtqhYWXIDOPAYU5795-89-79 10:37:000.3[facility] QgivxrzEHJJXFUDNZ1991-54-98 10:37:004.8[facility] [place] GBFBRLZUVS8737-21-87 10:37:001.3[facility] OmunfzfUHVOZGDXGD4211-80-84 10:37:000.6 [facility] WaaxbccESMMFSORHJ0412-77-51 10:37:000.1[facility]annHEMATOLOGY 2020-08-29 10:37:001+ *ABN*(08/29/20 5:37 AM)[facility] CcveqnxQFFFLLSKIG1965-61-54 10:37:00Not Detected (08/29/20 5:37 AM)[facility]annBLOOD BANK RESULTS 2020-08-29 10:37:00Negative (08/29/20 5:37 AM)[facility]annCHEM BQWWE2443-51-90 10:37:57178Mylryevz HermannCHEM KBRFV2095-72-98 10:37:0028[facility]annCHEM GKRWA8634-38-31 10:37:001.01[facility] HermannCHEM OCMUO0735-86-71 10:37:20021 [facility]annCHEM CAVQT8302-08-00 10:37:003.8[facility] HermannCHEM PANEL 2020-08-29 10:37:15648Vzrbhrwj HermannCHEM YQAIX8137-85-91 10:37:0028[facility] HermannCHEM LQXHB4568-29-31 10:37:009.8[facility] HermannCHEM UELWV8086-14-82 10:37:0011.8[facility] HermannCHEM EIKHM6303-80-15 10:37:0059[facility]annCHEM FWWAS0173-29-87 10:37:002.9[facility] GfacmhyFBJBBCDWYS3276-80-44 10:37:006.8 [facility] ZnbsibcREQUYRSMBL0735-69-22 10:37:004.47[facility]annHEMATOLOGY 2020-08-29 10:37:0010.6[facility] FvomddaYVYGVUWUCN9153-55-91 10:37:0034.0[facility] QnrtflgCCJTAJPQFN2287-13-54 10:37:0076.1[facility] FybidhrIPPIOSHKMK5131-31-85 10:37:00 Test Item Value Reference Range Interpretation Comments MCH (test code = MCH) 23.8 pg 27.0-31.0 [facility] ZmxlrwbFIVVNKVROU8551-98-12 10:37:0031.3[facility]annHEMATOLOGY 2020-08-29 10:37:0018.2[facility] FwjyysnNVOAVKVCCS6372-43-08 10:37:63382Bgzwnuru FxrjhwkYULKUFSXXR2404-49-07 10:37:007.5[facility] ApzumwoJJIUBROKFR9081-67-08 10:37:00 Test Item Value Reference Range Interpretation Comments PT (test code = PT) 12.8 s 12.0-14.7 [facility] OzzkhduDSQCLRHQNQ8168-78-22 10:37:00 Test Item Value Reference Range Interpretation Comments INR (test code = INR) 0.97 1 0.85-1.17 [facility] GylgqhxONFNPPKSSB9956-42-41 10:37:00 Test Item Value Reference Range Interpretation Comments PTT (test code = PTT) 25.0 s 22.9-35.8 [facility] LooeuytRVAVYDLXBY2965-75-81 10:37:0070.5[facility]annHEMATOLOGY 2020-08-29 10:37:0018.8[facility] UybtzcgRHDDUBBZOL2394-20-62 10:37:009.5[facility] MbzszskJJIGYSOSEI6545-85-51 10:37:000.9[facility] EoyvaydBJNKJRYLYF0770-21-85 10:37:000.3[facility] GrlkeqoERMMJSBRXD4324-53-74 10:37:004.8[facility] [place] EOVJOTARYK6401-37-39 10:37:001.3[facility] MnxgcutNVCPWYJPTD9834-75-03 10:37:000.6 [facility] ExhnnunCANPUFALMK9300-23-77 10:37:000.1[facility]annHEMATOLOGY 2020-08-29 10:37:001+ *ABN*(08/29/20 5:37 AM)[facility] EwmupasBMQYNJYBPE8801-16-82 10:37:00Not Detected (08/29/20 5:37 AM)[facility] 2020-08-27 23:14:39PROCEDURE: NM GASTRIC EMPTYING [...] rate, with complete emptying by 4 hours. [facility]-[id number] Interface, Radiology Results Incoming - 08/27/2020 6:17 [...] rate, with complete emptying by 4 hours. [facility]-[id number] HospitalMiscellaneous referral test 2020-05-09 21:24:58 Test Item Value Reference Range Interpretation Comments Misc test HIV-1 RNA QUAL PCR name (test code = 2566) Misc test see note Human Immunodef iciency result (test Virus 1 (HIV-1) by code = 1730) Qualitative Solar System Designer-M ediated Amplification ( TMA) [facility] test code 6824974 HIV-1 by Qualit ative TMA See Note SOURCE/SPECIMEN PLASMA HIV-1 RNA, QUAL ITATIVE TMA HIV-1 RNA, QL TMA T MEDART OPERATOR Test Not Performed. Initial testing necessi tated a repeat, but the re was insufficient sa mple to perform repeat. SAMPLE LEFT FOR REPEAT IS 50 uL. NEED 1000 u L TO RUN REPEAT. This te st was performed using the APTIMA(R) HIV-R NA Qualitative Ass ay (Gen-Probe). ======== ======== Te st performed by:[facility] [address] [address] KYLE (test HIVQL - HIV-1 RNA, code = KYLE) Qualitative TMA (FROZEN)[facility] Test Code: 5138999Vkmjfs: plasma [facility] duplex venous upper exdhjxlxt3768-73-83 04:57:00 Vascular Ultrasound Laboratory Upper Extremity Venous Report [address] [place] [address] Pat.Name: MAC LIO Pat.ID: [id number] St.Date: 04/30/2020 Refer.MD: ELISEO ARCE MD Exam Time: 5:04:00 PM Study Type:UE Venous Age: 9 1955,65Y Sex: FEMALE Sonogrphr: IBIS Espinosa, SANKET Pat. Stat.:Inpatient Room: [place] [address] 2020 Tape Vol: EDGAR, CPT - 4: 37799 Echo Event ID:[id number] Order ID: [id number] Reason for Study:Arm swelling or pain, DVT [...] veins.*Preliminary result reported to ASHLEY Santos @ 9816 on 04/30/20.PHYSICIAN INTERPRETATION Venous examination of the both upper extremities and neck demonstratedno evidence of deep venous thrombosis. Total superficial vein thrombosis of the right basilic vein. FINDINGS: Signed 04/30/2020 10:57 PMHuntersolt Marianna MD, RPVIInterprovidence st. [facility], Radiology Results In - 04/30/2020 10:58 PM CST Vascular Ultrasound Laboratory Upper Extremity Venous Report [address] [address].Name: LIO WATTS Marta.ID: [id number] .Date: 04/30/2020 Refer.MD: ELISEO ARCE MD Exam Time: 5:04:00 PM Study Type:UE Venous Age: 10 1955,65Y Sex: FEMALE Sonogrphr: IBIS Espinosa, SANKET Pat. Stat.:Inpatient Room: [place] [address] 2020 Tape Vol: JM, CPT - 4: 82217 Echo Event ID:[id number] Order ID: [id number] Reason for Study:Arm swelling or pain, DVT [...] veins.*Preliminary result reported to ASHLEY Santos @ 7331 on 04/30/20.PHYSICIAN INTERPRETATION Venous examination of the both upper extremities and neck demonstratedno evidence of deep venous thrombosis. Total superficial vein thrombosis of the right basilic vein. FINDINGS: ------Signed 04/30/2020 10:57 PMFrancis Cabral MD, [facility]XR [facility] 2 Be2017-12-63 22:21:01EXAMINATION: XR CHEST 2 VW CLINICAL HISTORY: amio gtt COMPARISON: None. FINDINGS: Two views of thechest demonstrate mild cardiomegaly. Pulmonary vasculature is within normal limits. No consolidationor pleural effusion is seen. There is no evidence of pneumothorax. Low lung volume is noted. Bilateral shoulders arthroplasty changes are noted. IMPRESSION: No radiographic evidence of acute cardiopulmonary process or active disease of the chest. [id number] Interface, Radiology Results Incoming - 04/30/2020 4:24 PM CST EXAMINATION: XR CHEST 2 VWCLINICAL HISTORY: amio gttCOMPARISON: None.FINDINGS:Two views of the chest demonstrate mild cardiomegaly. Pulmonary vasculature is within normal limits.No consolidation or pleural effusion isseen. There is no evidence of pneumothorax. Low lung volume is noted.Bilateral shoulders arthroplasty changes are noted.IMPRESSION:No radiographic evidence of acute cardiopulmonary process or active disease of the chest.1D2RAD_PS01[facility] HospitalMidline Unsuccessful Lsoafhi1290-23-83 17:14:34ANicole zhang RN 04/30/2020 11:25 AMMidline Unsuccessful [...] place a PIV g.20 in lower arm .[facility]XR [facility]domen 1 Vw Yqlacbtp7046-18-10 16:20:14EXAMINATION: XR ABDOMEN 1 VW PORTABLE CLINICAL HISTORY: Abdominal pain post op COMPARISON: No prior IMPRESSION:1.Residual barium within the colon throughout. No small bowel obstruction noted. [facility]2U [id number] Interface, Radiology Results Incoming - 04/30/2020 10:23 AM CST EXAMINATION: XR ABDOMEN 1 VW PORTABLECLINICAL HISTORY: Abdominalpain post opCOMPARISON: No priorIMPRESSION:1.Residual barium within the colon throughout. No smallbowel obstruction noted.[facility]-[id number] EkvkvftxTplgoc1562-95-51 20:57:57Carlee Malloy MD 04/28/2020 2:59 PMAirwayPerformed by: Carlee Malloy MDAuthorized by: Carlee Malloy MD Location: ORUrgency: ElectiveDifficult Airway: No Anesthesiologist: Kvng Malloy MDResident/NON LICENSED NUCLEAR EQUIPMENT OPERATOR/AA: Allan Morocho DOPerformed by: resident/NON LICENSED NUCLEAR EQUIPMENT OPERATOR/AAPreoxygenated rltn326% O2: Yes C- spine Precautions Maintained Throughout: [...] No Number of Attempts at Approach: 1 [facility] HospitalTransthoracic Echocardiogram Complete, (w Contrast, Strain and 3D if needed)2020-04-28 00:20:00 Echocardiography Report [address] [place] [address] Pat.Name: LIO WATTS Pat.ID: [id number] .Date: 04/27/2020 Refer.MD: ELISEO ARCE MD Exam Time: 2:21:00 PM Study Type:Routine Echo Height: 64in Weight: 213lb BSA: 2.01 m2 Age: 9 1955,65Y Sex: FEMALE BP: 128/89 HR: 102 bpm Sonogrphr: SANKET Perkins Pat. Stat.:Inpatient Room: [facility] Study Status:Final Echo Event ID:[id number] Order ID: [id number] Reason for Study:Atrial FibrillationHistory / Clinical:Hypertension Procedures: [...] estimate PA systolic pressure. MEASUREMENTS: 2DParasternal Long [place] Ao An 2.2 cm LVPWd 1 cm [...] 04/27/2020 6:21 PM CST Echocardiography Report [id number] [address] Pat.Name: LIO WATTS.ID: [id number] .Date: 04/27/2020 Refer.MD: ELISEO ARCE MD Exam Time: 2:21:00 PM Study Type:Routine Echo Height: 64in Weight: 213lb BSA: 2.01 m2 Age: 9 1955,65Y Sex: FEMALE BP: 128/89 HR: 102 bpm Sonogrphr: SANKET [facility]. Stat.:Inpatient Room: [facility] Study Status:Final Echo Event ID:[id number] Order ID: [id number] Reason for Study:Atrial FibrillationHistory / Clinical:Hypertension Procedures: [...] PA systolic pressure.- MEASUREMENTS: ---- 2DParasternal Long [place] Ao An 2.2 cm LVPWd 1 cm [...] LVOT CI 3.1 l/m/m2 Signed 04/27/2020 06:20 PMMoregency [facility] Esophagram Double [id number] 18:07:12EXAMINATION: FL ESOPHAGRAM DOUBLE CONTRAST CLINICAL HISTORY: [...] Wo Contrast Abdomen Wo Contrast Pelvis Wo [id number] 15:23:55EXAMINATION: CT CHEST WO CONTRAST ABDOMEN WO [...] chronic and incidental findings as detailed above. [facility]-[id number] Dictated and approved by radiology resi dent/fellow: Jenna Valenzuela M.D. I, Medhat Flowers Jr., M.D., personally reviewed the images and resident's/fellow's findings and agree with the final report.[facility], Radiology Results Incoming - 04/21/2020 9:27 AM [...] aorta.4.Additional chronic and incidental findings as detailed above.[facility]-[id number] and approved by resident care director/fellow: Jenna Valenzuela M.D.I, Medhat Flowers Jr., M.D., personally reviewed the images and resident's/fellow's findings and agree with the final report. [facility], GC, TV,PCR, IN [id number] 15:38:00 Test Item Value Reference Range Interpretation Comments FT (test code = CHTR) Not detected (qualifier Not Detected N value) FT (test code = Not detected (qualifier Not Detected N NGONO) value) FT (test code = TRVG) Not detected (qualifier Not Detected N value) URINALYSIS WITH [id number] 10:57:00 Test Item Value Reference Range Interpretation Comments Color (test code = UCOLR) Dk. Yellow Clarity (test code = UCLAR) Hazy Glucose (test code = UGLUC) NEGATIVE NEGATIVE N Bilirubin (test code = UBILI) NEGATIVE NEGATIVE N Ketones (test code = UKET) NEGATIVE NEGATIVE N Specific [place] (test code = 1.025 1.005-1.030 A USPGR) [...]
--- NOTE | 2021-08-08 20:18 | ER ---
Nurse's Notes [facility] Name: Fawn Fleming Age: 66 yrs Sex: Female : 1955 Arrival Date: 08/08/2021 Time: 19:57 Bed Waiting Private MD: Diagnosis: Assessment: 08/08 20:17 Reassessment: Called to triage. Pt cassi. ld1 ED Course: :57 Patient arrived in ED. jj6 20:14 Austin Raza NP is PHCP. pm1 20:14 Jose Shah DO is Attending Physician. pm1 Administered Medications: No medications were administered Outcome: 20:18 Patient left the ED. ld1 Signatures: Austin Raza NP [employer] pm1 Wanda Rust RN RN ld1 Karen Montiel jj6
== END 2021-08-08 20:18 | disposition left against medical advice (07) ==
LOC: ER 18:50
DX: Z02.9 Encounter for administrative examinations, unspecified (principal)

== ENCOUNTER 2021-08-10 06:47 | Emergency (ER) | payer OTHER ==
--- OUTSIDE RECORDS SUMMARY | 2021-08-10 06:55 | XMS REPORT | Continuity of Care Document ---
:1955 Author Organization [facility] t Address [address] [place] [address] Care Team Providers Name Role Phone Francisco Rahman Primary Care Physician Ashely Attending Clinician Unavailable JENNY Attending Clinician Unavailable Ap JENKINS Attending Clinician Doctor Unassigned, Name Attending Clinician Unavailable Ronald DHILLON Attending Clinician Prabhu SANCHEZ Attending Clinician Unavailable Luisana Maharaj NP Attending Clinician Yazmin JENKINS Attending Clinician [facility] Attending Clinician Unavailable Devin NEONATAL PEDIATRIC NURSE, R Attending Clinician Clark SANCHEZ Attending Clinician [...] Number Effective Date Expiration Date S gabino [facility] COMM[facility] [id number] 2012 [employer] 00:00:00 Problems Condition Condition Condition Status Onset Resolution Last Treating Co mments Source Name Details Category Date Date Treatment Clinician Date Gastropare Gastropare Disease Active Overview : Methodi sis sis 4-[address] 00:00: [facility] 00 note l might be different from the original. Added automatic ally from request for surgery [id number] Dysphagia Dysphagia Disease Active Overview: Methodi 4-[address] 00:00: [facility] of this [facility] 00 note l might be different from the original. Added automatic ally from request for surgery [id number] CCL / EPS Diagnosis Active 2020-10-15 Memoria PVI 3-30 17:07:00 l ABLATION CCL / 00:00: Marty W/ CARTO / EPS PVI 00 GA / T ABLATION W/ CARTO / GA / T Active 08/19/2020 [facility] Food Food Disease Active 2019-05 Methodi intoleranc [...] (BMI 2-19 ity of 30-39.9) 30-39.9) 00:00: [facility] [place] [facility] Anemia Anemia Disease Active 2014-05 Univers 0-03 ity of 00:00: [facility] [place] [facility] Hypovolemi Hypovolemi Disease Active 2014-05 U nivers a due to a due to 0-02 ity of hemorrhage hemorrhage 00:00: [place] [facility] Chest pain Chest pain Disease Active 2014-05 U nivers 0-02 ity of 00:00: [place] [facility] 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:00: [place] shoulder shoulder 00 Medica l arthroplas arthroplas Br anch ty ty Posttrauma Posttrauma Disease Active U nivers tic stress tic stress 08 it y of disorder disorder 00:00: [place] [facility] 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 00:00: [place] virus virus 00 Medical (HIV) (HIV) Branch disease disease Bipolar 2 Bipolar 2 Disease Active Uni vers disorder disorder 11-18 ity of 00:00: [facility] [place] [facility] Chronic Chronic Disease Active Univers hepatitis hepatitis 11-18 ity of C C 00:00: [place] [facility] Hypertensi Hypertensi Disease Active U nivers on on 11-18 ity of 00:00: [place] 00 Medical [facility] Allergies, Adverse Reactions, Alerts Allergy Allergy Status Severity Reaction(s) Onset Inactive Treating Comm ents Source Name Type Date Date Clinician sulfamet DA Active SV N/V [facility] hoxazole 1-25 Clear 00:00: Garcia 00 [facility] trimetho DA Active SV [facility] prim 1-25 Clear 00:00: Garcia 00 [facility] codeine DA Active SV N/V [facility] 1-25 Clear 00:00: Garcia 00 [facility] Metoclop Propensi Active [place] ramide ty [...] Date Stop Date Source Natural father Diabetes [facility] Natural father Other - see comments [facility] Natural father Coronary Heart Univer [facility] Disease [facility] Natural father Hypertension [facility] Natural father Kidney disease Method [facility] Natural mother Cancer [facility] Social History Social Habit Start Date Stop Date Quantity Comments [facility] Alcohol Comment History [facility] Health Alcohol Std Drinks Exposure to Not sure [facility] SARS-CoV-2 (event) History [facility] Alcohol Binge History of tobacco Smoker Method ist use Hospital Alcohol intake 2021-07-14 2021-07-14 Ex-drinker [facility] 00:00:00 00:00:00 (finding) Cigarettes smoked 2020-12-08 2020-12-[address] current (pack per 00:00:00 00:00:00 Hospita l day) - Reported Cigarette 2020-12-08 2020-12-08 [facility] 00:[facility]00 00:00:00 Hospital Tobacco use and 2020-10-31 2020-10-31 Smokeless tobacco [facility] exposure 00:00:00 00:00:00 non-user History SDOH 2020-10-31 2020-10-31 1 [facility] Alcohol Frequency 00:00:00 00:00:00 Tobacco Comment 2015-02-14 2015-02-14 Smokes approx 1-2 Un iversity of 00:00:00 00:00:00 cigarettes per [place] [facility] porfirio day when she Branch smokes Sex [birth year] [facility] 00:00:00 00:00:00 Smoking Status Start Date Stop Date Source Former smoker 2020-12-08 00:00:00 2020-12-08 00:00:00 [facility] Medications Ordered Filled Start Stop Current Ordering Indication Dosage Frequency Signature Comments Components Source Medication Medication Date Date Medication? Clinician (SIG) Name Name LORazepam 1 Yes [id number] 1mg Take 1 Univers mg tablet 3-21 tablet by ity o f 00:00: mouth 3 [place] 00 (three) Medical times Branch daily as needed (anxiety). raltegravir Yes 400mg Q.5D Take 400 U T (Isentress) 2-22 mg by Health 400 MG 09:09: mouth 2 tablet 52 (two) times a day. LORazepam 1 2021- No [id number] 1mg Take 1 Univers mg tablet 2-21 [...] 00 times a tablet day. buPROPion Yes [id number] 150mg Take 1 U nivers XL 1-24 tablet by ity of (WELLBUTRIN 00:00: mouth [place] XL) 150 mg 00 daily. Medical 24 hr Branch tablet busPIRone Yes [id number] 30mg Take 1 Un matt 30 mg 1-24 tablet by ity of tablet 00:00: mouth 2 [place] 00 (two) Medical times Branch daily. SERTraline Yes [id number] 200mg Take 2 Univers 100 mg 1-24 tablets by ity of tablet 00:00: mouth [place] 00 daily. Medical Branch LORazepam 1 2021- No [id number] 1mg Take 1 Univers mg tablet 1-24 02-21 tablet by ity of 00:00: 00:00 mouth 3 [place] 00 :00 (three) Medical times Branch daily as needed (anxiety). emtricitabi Yes [id number] Take one Univers ne-tenofovi 1-20 po daily ity of r alafen 00:00: [place] (DESCOVY) 00 Medical tablet Branch raltegravir 0 Yes [id number] 400mg Take 1 Univers (ISENTRESS) 1-12 tablet by ity of 400 mg 00:00: mouth 2 [place] tablet 00 (two) Medical times Branch daily. metoprolol 0 Yes [id number] Take 1 UT tartrate 7-26 tablet Health (Lopressor) 00:00: (100 mg 100 MG 00 total) by tablet mouth 2 (two) times a day AND 0.5 tablets (50 mg total) every night. metoprolol 0 Yes [id number] Take 1 UT tartrate 7-26 tablet Health [...] (affected area in groin) hydrALAZINE Yes 50mg Q.[id number] Take 50 mg Methodi (APRESOLINE 7-[id number] mouth [address] ) 50 MG [...] Hospita tablet 25 daily. l nystatin-tr Yes [id number] Apply to [facility] 11-25 area(s) 3 ity of cream 00:00: (three) [place] 00 times Medical daily. Branch budesonide- 2020- No 1{puff} QD Inhale 1 Methodi formoteroL 6-25 06-[address] (SYMBICORT) 19:37: 00:00 morning. H ospita 160-4.5 02 :00 l mcg/actuati on inhaler hydrALAZINE 2020-0 Yes [id number] 50mg Q.[id number] Take 1 UT (Apresoline 6-11 [id number] tablet (50 Health ) 50 MG 00:00: 3D mg total) tablet 00 by mouth 3 (three) times a day. hydrALAZINE 0 Yes [id number] 50mg Q.[id number] Take 1 UT (Apresoline 6-11 [id number] tablet (50 Health ) 50 MG 00:00: 3D mg total) tablet 00 by mouth 3 (three) times a day. Breztri 2020-0 Yes UT Aerosphere 6-09 Health 160-9-4.8 00:00: MCG/ACT 00 aerosol Breztri 2020-0 Yes UT Aerosphere 6-09 Health 160-9-4.8 00:00: MCG/ACT 00 aerosol albuterol 2020-0 Yes UT (2.5 6-02 Health MG/3ML) 00:00: 0.083% 00 nebulizer solution albuterol 0 2021- No UT (2.5 6-02 02-22 Health MG/3ML) 00:00: 00:00 0.083% 00 :00 nebulizer solution lisinopril 2020-0 Yes UT 40 MG 5-30 Health tablet 00:00: 00 sertraline 2020-0 Yes 200mg 200 mg. UT (Zoloft) 5-30 Health 100 MG 00:00: tablet 00 lisinopril 2020-0 Yes UT 40 MG 5-30 Health tablet 00:00: 00 sertraline 2020-0 2- No 200mg 200 mg. UT (Zoloft) 5-30 02-22 Health 100 MG 00:00: 00:00 tablet 00 :00 mupirocin 2020-0 Yes UT (Bactroban) 5-28 Health 2 % 00:00: ointment 00 mupirocin 2020-0 Yes UT (Bactroban) 5-28 Health 2 % 00:00: ointment 00 nystatin 2020-0 2021- No [id number] Q.25D Take 5 mL Methodi (MYCOSTATIN 5-17 - (500,000 st ) 100,000 00:00: 04:59 [...] 00:00: (two) 00 times a day. pantoprazol 0 Yes UT e 4-20 Health [...] ia 4-10 (Same as: l 14:00: Zoloft) Lester 00 pantoprazol No Notes: Caesar lisa e 4-10 Tablet l 14:00: should not Lester 00 be chewed or crushed. (Same as: [...] ia 4-10 (Same as: l 14:00: Zoloft) [place] 00 pantoprazol No Notes: Caesar lisa e 4-10 Tablet l 14:00: should not Marty 00 be chewed or crushed. (Same as: Protonix) Amiodarone No Notes: Memor ia 4-10 (Same as: l 14:00: Cordarone) Marty 00 Amlodipine No Notes: Memor ia 4-10 (Same as: l 14:00: Norvasc) Lester 00 emtricitabi No Notes: Caesar lisa ne [...] ia 4-10 (Same as: l 14:00: Cordarone) L[place] 00 Amlodipine No Notes: Memor ia 4-10 (Same as: l 14:00: Norvasc) [place]ester emtricitabi No Notes: Caesar lisa ne 200 MG / 4-10 (Same as: l tenofovir 14:00: Descovy) Herm ariel alafenamide 00 Non-formul 25 MG Oral nancy Tablet [Descovy] Sertraline No Notes: Memor ia 4-10 (Same as: l 14:00: Zoloft) [place]ester pantoprazol No Notes: Caesar lisa e 4-10 Tablet l 14:00: should not Marty 00 be chewed or crushed. (Same as: Protonix) Amiodarone No Notes: Memor ia 4-10 (Same as: l 14:00: Cordarone) Lester 00 Amlodipine No Notes: Memor ia 4-10 [...] e 4-10 Tablet l 14:00: should not Lester 00 be chewed or crushed. (Same as: Protonix) Amiodarone No Notes: Memor ia 4-10 (Same as: l 14:00: Cordarone) Lester Amlodipine No Notes: Memor ia 4-10 (Same [...] (Same as: l 14:00: Cordarone) Marty 00 Sucralfate No Notes: May M emoria [...] 0.9% 4-10 (Same as: l 02:00: BD [place] 00 Posiflush) Eliquis No Notes: Memoria 4-10 [...] Memoria 4-10 Same as: l 02:00: Eliquis [place] 00 Hydralazine No Notes: Caesar lisa Hydrochlori 4-10 (Same as: l de 50 MG 02:00: Apresoline Her mitchell Oral Tablet 00 ) May interfere w/enteral feedings Take With Food Sucralfate No Notes: May M emoria 4-10 interfere l 02:00: w/enteral Lester 00 feeds - Take 1 hr before or 2 hr after antacids, dairy pdt, meals & minerals - On empty stomach. For patients unable to swallow tablet, dissolve in 10mL - 30mL of water or juice and stir before giving. (Same As: Carafate) Saline No Notes: Memoria Flush 0.9% 4-10 (Same as: l 02:00: BD [place] 00 Posiflush) Eliquis No Notes: Memoria 4-10 [...] 0.9% 4-10 (Same as: l 02:00: BD [place] 00 Posiflush) Eliquis No Notes: Memoria 4-10 Same as: l 02:00: Eliquis [place] Hydralazine No Notes: Caesar lisa Hydrochlori 4-10 [...] 0.9% 4-10 (Same as: l 02:00: BD L[place] 00 Posiflush) Eliquis No Notes: Memoria 4-10 [...] 0.9% 4-10 (Same as: l 02:00: BD [place] Posiflush) Eliquis No Notes: Memoria 4-10 Same as: l 02:00: Eliquis Marty 00 Hydralazine No Notes: Caesar lisa Hydrochlori 4-10 (Same as: l de 50 MG 02:00: Apresoline Her mitchell Oral Tablet 00 ) May interfere w/enteral feedings Take With Food Sucralfate No Notes: May M emoria 4-10 interfere l 02:00: w/enteral Lester 00 feeds - Take 1 hr before [...] Memoria 4-10 Same as: l 02:00: Eliquis [place] Hydralazine No Notes: Caesar lisa Hydrochlori 4-10 [...] not exceed l #3 00:12: 4gm/day of Lester acetaminop hen. (Same as: Tylenol with Codeine [...] not exceed l #3 00:12: 4gm/day of L[place] acetaminop hen. (Same as: Tylenol with Codeine [...] oria 4- tab, l 22:00: Route: PO, Lester Drug form: TAB, BID, Dosing Weight 97.273, [...] oria 4-09 tab, l 22:00: Route: PO, L[place] 00 Drug form: TAB, BID, Dosing Weight 97.273, kg, Start date: 08/29/20 17:00:00 CDT, Duration: 30 day, Stop date: 09/28/20 9:00:00 CDT metoprolol 2021-0 No 100 mg, 1 Me moria tartrate 4-09 tab, l 22:00: Route: PO, L[place] 00 Drug form: TAB, BID, Dosing Weight [...] 4- tab, l Tablet 22:00: Route: POSkylar [ISENTRESS] Drug form: TAB, BID, Dosing Weight [...] tartrate 4-09 tab, l 22:00: Route: PO, L[place] 00 Drug form: TAB, BID, Dosing Weight [...] oria 4-09 tab, l 22:00: Route: PO, L[place] 00 Drug form: TAB, BID, Dosing Weight [...] CDT, 0 Morphine 2020-0 No Notes: Memoria 4- (Same l 17:07: as:MORPhin Lester 00 e Sulfate) Morphine 2020-0 No Notes: Memoria 4-09 (Same l 17:07: as:MORPhin Marty 00 e Sulfate) Morphine 2020-0 No Notes: Memoria 4- (Same l 17:07: as:MORPhin [place] 00 e Sulfate) Morphine No Notes: Memoria 4- (Same l 17:07: as:MORPhin Marty 00 e Sulfate) Morphine No Notes: Memoria 4- (Same l 17:07: as:MORPhin [place] 00 e Sulfate) Morphine No Notes: Memoria 4- (Same l 17:07: as:MORPhin Marty 00 e Sulfate) Morphine No Notes: Memoria 4- (Same l 17:07: as:MORPhin Lester 00 e Sulfate) buPROPion 2020-0 No 150 [...] tab, PO, l oral 15:27: Daily, # Lester enteric 00 30 tab, 0 coated Refill(s), tablet Pharmacy: [facility] 149, 162.56, cm, 08/29/20 5:30:00 CDT, Height, 97.273, kg, 08/29/20 5:30:00 CDT, Weight pantoprazol 0 Yes 40 mg = 1 [...] 30 tab, 0 coated Refill(s), tablet Pharmacy: [place] [id number], 162.56, cm, 08/29/20 5:30:00 CDT, Height, 97.273, kg, 08/29/20 5:30:00 CDT, Weight pantoprazol 1-0 Yes 40 mg = 1 M emoria e 40 mg 4-09 tab, PO, l oral 15:27: Daily, # Marty enteric 00 30 tab, 0 coated Refill(s), tablet Pharmacy: [facility] 149, 162.56, cm, 08/29/20 5:30:00 CDT, Height, 97.273, kg, 08/29/20 5:30:00 CDT, Weight pantoprazol 2020-0 Yes 40 mg = 1 M emoria e 40 mg 4-09 tab, PO, l oral 15:27: Daily, # Marty enteric 00 30 tab, 0 coated Refill(s), tablet Pharmacy: [facility] 149, 162.56, cm, 08/29/20 5:30:00 CDT, Height, 97.273, kg, 08/29/20 5:30:00 CDT, Weight pantoprazol 2020-0 Yes 40 mg = 1 M emoria e 40 mg 4-09 tab, PO, l oral 15:27: Daily, # Marty enteric 00 30 tab, 0 coated Refill(s), tablet Pharmacy: [facility] 149, 162.56, cm, 08/29/20 5:30:00 CDT, Height, 97.273, kg, 08/29/20 5:30:00 CDT, Weight pantoprazol 2020-0 Yes 40 mg = 1 M emoria e 40 mg 4-09 tab, PO, l oral 15:27: Daily, # Lester enteric 00 30 tab, 0 coated Refill(s), tablet Pharmacy: [facility] 149, 162.56, cm, 08/29/20 [...] tab, PO, l oral 15:26: Daily, # Lester enteric 00 30 tab, 0 coated Refill(s) [...] Skylar nn 00 tab, 0 Refill(s), Pharmacy: [place] [id number], 162.56, cm, 08/29/20 5:30:00 CDT, Height, 97.273, kg, 08/29/20 5:30:00 CDT, Weight pantoprazol 2020-0 No 40 mg = 1 M emoria e 40 mg 4-09 tab, PO, l oral 15:26: Daily, # Lester enteric 00 30 tab, 0 coated Refill(s) tablet sucralfate 2020-0 Yes 1 gm = 1 Mem oria 1 g oral 4-09 tab, PO, l tablet 15:26: Q12H, # 28 Skylar nn 00 tab, 0 Refill(s), Pharmacy: [place] [id number], 162.56, cm, 08/29/20 5:30:00 CDT, Height, 97.273, [...] Saline 2020-0 No Notes: Memoria Flush 0.9% 4-09 (Same as: l 15:25: BD L[place] 00 Posiflush) Lorazepam No Notes: Memori a 4-09 (Same as: l 15:25: Ativan) Saline No Notes: Memoria Flush 0.9% 4-09 (Same as: l 15:25: BD Marty 00 Posiflush) Lorazepam No Notes: Memori a 4-09 (Same as: l 15:25: Ativan) Saline No Notes: Memoria Flush 0.9% 4-09 (Same as: l 15:25: BD Lester 00 Posiflush) Saline No Notes: Memoria Flush 0.9% 4-09 (Same as: l 15:25: BD L[place] 00 Posiflush) Lorazepam No Notes: Memori a 4-09 (Same as: l 15:25: Ativan) Lorazepam No Notes: Memori a 4-09 (Same as: l 15:25: Ativan) Saline No Notes: Memoria Flush 0.9% 4-09 (Same as: l 15:25: BD Marty 00 Posiflush) Lorazepam No Notes: Memori a 4-09 (Same as: l 15:25: Ativan) Saline No Notes: Memoria Flush 0.9% 4-09 (Same as: l 15:25: BD Lester Posiflush) Lorazepam No Notes: Memori a 4-09 (Same as: l 15:25: Ativan) Saline No Notes: Memoria Flush 0.9% 4-09 (Same as: l 15:25: BD L[place] 00 Posiflush) Lorazepam No Notes: Memori a 4-09 (Same as: l 15:25: Ativan) Isuprel HCl No Route: IV, Memoria (ANES) 0.2 4- Drug form: l mg + 15:00: INJ, Lester 00 Dosing Weight 97.3, kg, Start date: 08/29/20 10:00:00 CDT, Stop date: 08/29/20 11:00:00 CDT Isuprel HCl 1-0 No Route: IV, Memoria (ANES) 0.2 08-29 Drug form: l mg + 15:00: INJ, Lester Dosing Weight 97.3, kg, Start date: 08/29/20 10:00:00 CDT, Stop date: 08/29/20 11:00:00 CDT Isuprel HCl 2020-0 No Route: IV, Memoria (ANES) 0.2 08-29 Drug form: l mg + 15:00: INJ, Marty Dosing Weight 97.3, kg, Start date: 08/29/20 10:00:00 CDT, Stop date: 08/29/20 11:00:00 CDT Isuprel HCl 2020-0 No Route: IV, Memoria (ANES) 0.2 08-29 Drug form: l mg + 15:00: INJ, Lester Dosing Weight 97.3, kg, Start date: 08/29/20 10:00:00 CDT, Stop date: 08/29/20 11:00:00 CDT Isuprel HCl 2020-0 No Route: IV, Memoria (ANES) 0.2 08-29 Drug form: l mg + 15:00: INJ, Lester Dosing Weight 97.3, kg, Start date: 08/29/20 10:00:00 CDT, Stop date: 08/29/20 11:00:00 CDT Isuprel HCl 1-0 No Route: IV, Memoria (ANES) 0.2 08-29 Drug form: l mg + 15:00: INJ, Marty Dosing Weight 97.3, kg, Start date: 08/29/20 10:00:00 CDT, Stop date: 08/29/20 11:00:00 CDT Isuprel HCl 2020-0 No Route: IV, Memoria (ANES) 0.2 08-29 Drug form: l mg + 15:00: INJ, Marty Dosing Weight 97.3, kg, Start date: 08/29/20 10:00:00 CDT, Stop date: 08/29/20 11:00:00 CDT heparin 202-0 No Route: IV, Caesar [...] 00 Stop date: 08/29/20 9:18:00 CDT heparin 1-0 No Route: IV, Caesar lisa (ANES) 08-29 Drug form: l 14:18: INJ, ONCE, Marty 00 Stop date: 08/29/20 9:18:00 CDT Labetalol 1-0 No 10 mg, Memori a 08-29 Route: l 14:01: IVP, Lester 00 Q5Min, Dosing Weight 97.273, kg, PRN Elevated BP, Start date: 08/29/20 9:01:00 CDT, Duration: 5 doses or times, Stop date: Limited # of times Acetaminoph 2020-0 No 1,000 mg, M emoria en 08-29 Route: PO, l 14:01: Drug form: Lester 00 TAB, ONCE, Dosing Weight 97.273, kg, [...] Naloxone 2020-0 No 0.4 mg, Memori a 4-09 Route: l 14:01: IVP, Lester 00 Q2MIN, Dosing Weight 97.273, kg, PRN Narcotic Reversal, Start date: 08/29/20 9:01:00 CDT, Duration: 8 doses or times, Stop date: Limited # of times Ondansetron 1-0 No 4 mg, Memor ia 08-29 Route: l 14:01: IVP, ONCE, Lester 00 Dosing Weight 97.273, kg, PRN Nausea & Vomiting, Start date: 08/29/20 9:01:00 CDT Labetalol 1-0 No 10 mg, Memori a 08-29 Route: l 14:01: IVP, Lester 00 Q5Min, Dosing Weight 97.273, kg, PRN [...] lisa 08-29 Route: l 14:01: IVP, PRN, Lester 00 Dosing Weight 97.273, kg, PRN Benzodiaze pine Reversal, Initial dose, Start date: 08/29/20 9:01:00 CDT, Duration: 30 day, Stop date: 09/28/20 9:00:00 CDT Naloxone 1-0 No 0.4 mg, Memori a 08-29 Route: l 14:01: IVP, Lester 00 Q2MIN, Dosing Weight 97.273, kg, PRN [...] oria ne 08-29 Route: l 14:01: IVP, Lester 00 Q5Min, Dosing Weight 97.273, kg, PRN Pain Score 7-10, Start date: 08/29/20 9:01:00 CDT, Duration: 4 doses or times, Stop date: Limited # of times Flumazenil 1-0 No 0.2 mg, Caesar lisa 08-29 Route: l 14:01: IVP, PRN, Lester 00 Dosing Weight 97.273, kg, PRN Benzodiaze [...] 08-29 Route: PO, l 14:01: Drug form: Lester 00 TAB, ONCE, Dosing Weight 97.273, kg, [...] lisa 08-29 Route: l 14:01: IVP, PRN, Lester 00 Dosing Weight 97.273, kg, PRN Benzodiaze pine Reversal, Initial dose, Start date: 08/29/20 9:01:00 CDT, Duration: 30 day, Stop date: 09/28/20 9:00:00 CDT Naloxone 2021-0 No 0.4 mg, Memori a 08-29 Route: l 14:01: IVP, Lester 00 Q2MIN, Dosing Weight 97.273, kg, PRN Narcotic Reversal, Start date: 08/29/20 9:01:00 CDT, Duration: 8 doses or times, Stop date: Limited # of times Flumazenil 1-0 No 0.2 mg, Caesar lisa 08-29 Route: l 14:01: IVP, PRN, Lester 00 Dosing Weight 97.273, kg, PRN Benzodiaze pine Reversal, Initial dose, Start date: 08/29/20 9:01:00 CDT, Duration: 30 day, Stop date: 09/28/20 9:00:00 CDT Ondansetron 1-0 No 4 mg, Memor ia 08-29 Route: l 14:01: IVP, ONCE, Lester 00 Dosing Weight 97.273, kg, PRN Nausea [...] Memori a 08-29 Route: l 14:01: IVP, Lester 00 Q5Min, Dosing Weight 97.273, kg, PRN [...] lisa 08-29 Route: l 14:01: IVP, PRN, Lester 00 Dosing Weight 97.273, kg, PRN Benzodiaze [...] Memori a 08-29 Route: l 14:01: IVP, Lester 00 Q2MIN, Dosing Weight 97.273, kg, PRN [...] ONCE, Stop date: 08/29/20 8:42:00 CDT fentaNYL 202-0 No Route: IV, Mem oria (ANES) 08-29 Drug form: l 13:42: INJ, ONCE, Stop date: 08/29/20 8:42:00 CDT fentaNYL 2020-0 No Route: IV, Mem oria (ANES) 08-29 Drug form: l 13:42: INJ, ONCE, Marty Stop date: 08/29/20 8:42:00 CDT fentaNYL 2020-0 No Route: IV, Mem oria (ANES) 08-29 Drug form: l 13:42: INJ, ONCE, Lester 00 Stop date: 08/29/20 8:42:00 CDT fentaNYL 2020-0 No Route: IV, Mem oria (ANES) 08-29 Drug form: l 13:42: INJ, ONCE, Lester 00 Stop date: 08/29/20 8:42:00 CDT fentaNYL 2020-0 No Route: IV, Mem oria (ANES) 08-29 Drug form: l 13:42: INJ, ONCE, Stop date: 08/29/20 8:42:00 CDT fentaNYL 2020-0 No Route: IV, Mem oria (ANES) 08-29 Drug form: l 13:42: INJ, ONCE, Stop date: 08/29/20 8:42:00 CDT norepinephr 2020-0 No Route: IV, Memoria ine (ANES) 08-29 Drug form: l 10 13:15: INJ, Start Lester microgram date: 08/29/20 8:15:00 CDT, Stop date: 08/29/20 9:15:00 CDT norepinephr 2020-0 No Route: IV, Memoria ine (ANES) 08-29 Drug form: l 10 13:15: INJ, Start Marty microgram date: 08/29/20 8:15:00 CDT, Stop date: 08/29/20 9:15:00 CDT norepinephr 2020-0 No Route: IV, Memoria ine (ANES) 08-29 Drug form: l 10 13:15: INJ, Start Lester microgram date: 08/29/20 8:15:00 CDT, Stop date: 08/29/20 9:15:00 CDT norepinephr 2020-0 No Route: IV, Memoria ine (ANES) 08-29 Drug form: l 10 13:15: INJ, Start Lester microgram 00 date: 08/29/20 8:15:00 CDT, Stop date: 08/29/20 9:15:00 CDT norepinephr 2020-0 No Route: IV, Memoria ine (ANES) 08-29 Drug form: l 10 13:15: INJ, Start Marty microgram 00 date: 08/29/20 8:15:00 CDT, Stop date: 08/29/20 9:15:00 CDT norepinephr 2020-0 No Route: IV, Memoria ine (ANES) 08-29 Drug form: l 10 13:15: INJ, Start Lester microgram date: 08/29/20 8:15:00 CDT, Stop date: 08/29/20 9:15:00 CDT norepinephr 2020-0 No Route: IV, Memoria ine (ANES) 08-29 Drug form: l 10 13:15: INJ, Start Lester microgram date: 08/29/20 8:15:00 CDT, Stop date: 08/29/20 9:15:00 CDT Sodium 2020-0 No Route: IV, Memor ia Chloride 4-09 Total l 0.9% IV 12:30: Volume: Lester (ANES) 1000 00 1,000, mL Start date: [...] 4-09 Total l 0.9% IV 12:30: Volume: Lester (ANES) 1000 00 1,000, mL Start date: 08/29/20 7:30:00 CDT, Stop date: 08/29/20 8:30:00 CDT Sodium 2021-0 No Route: IV, Memor ia Chloride 4-09 Total l 0.9% IV 12:30: Volume: Marty (ANES) 1000 00 1,000, mL Start date: 08/29/20 7:30:00 CDT, Stop date: 08/29/20 8:30:00 CDT Sodium 2021-0 No Route: IV, Memor ia Chloride 4-09 Total l 0.9% IV 12:30: Volume: Lester (ANES) 1000 00 1,000, mL Start date: 08/29/20 7:30:00 CDT, Stop date: 08/29/20 8:30:00 CDT Sodium 2021-0 No Route: IV, Memor ia Chloride 4-09 Total l 0.9% IV 12:30: Volume: Lester (ANES) 1000 00 1,000, mL Start date: [...] PO, l Hydrochlori 11:42: Q24H, # 30 Lester de 150 MG 00 tab, 0 Extended [...] PO, l Hydrochlori 11:42: Q24H, # 30 Lester de 150 MG 00 tab, 0 Extended Refill(s) Release Tablet 24 HR Yes 150 mg = 1 Memori a Bupropion 4-09 tab, PO, l Hydrochlori 11:42: Q24H, # 30 Marty de 150 MG 00 tab, 0 Extended Refill(s) Release Tablet apixaban 5 Yes 5 mg, PO, Me moria MG Oral 4 Q12H, tab, l Tablet 11:41: 0 Lester [Eliquis] 00 Refill(s), For Atrial Fibrilatio n apixaban 5 2020-0 Yes 5 mg, PO, Me moria MG Oral 4- Q12H, tab, l Tablet 11:41: 0 Marty [Eliquis] 00 Refill(s), For Atrial Fibrilatio n apixaban 5 2020-0 Yes 5 mg, PO, Me moria MG Oral - Q12H, tab, l Tablet 11:41: 0 Lester [Eliquis] 00 Refill(s), For Atrial Fibrilatio n apixaban 5 2020-0 Yes 5 mg, PO, Me moria MG Oral 08-29 Q12H, tab, l Tablet 11:41: 0 Lester [Eliquis] 00 Refill(s), For Atrial Fibrilatio n apixaban 5 2020-0 Yes 5 mg, PO, Me moria MG Oral 08-29 Q12H, tab, l Tablet 11:41: 0 Lester [Eliquis] 00 Refill(s), For Atrial Fibrilatio n [...] tab, PO, l tablet 11:38: Daily, # Lester 00 90 tab, 3 Refill(s) AMIODarone 2020-0 Yes 200 mg = 1 M emoria 200 mg oral 4-09 tab, PO, l tablet 11:38: Daily, # Lester 00 90 tab, 3 Refill(s) AMIODarone 2020-0 Yes 200 mg = 1 M emoria 200 mg oral 4-09 tab, PO, l tablet 11:38: Daily, # Lester 00 90 tab, 3 Refill(s) AMIODarone 2020-0 Yes 200 mg = 1 M emoria 200 mg oral 4-09 tab, PO, l tablet 11:38: Daily, # Lester 00 90 tab, 3 Refill(s) normal 0 [...] 09/28/20 5:29:00 CDT, 2.13, m2, 0 pantoprazol 2020-0 2020- No Vitalyo lucas e 4-09 06-25 st (PROTONIX) 00:00: 00:00 Hospit a 40 MG EC 00 :00 l tablet sucralfate 2020- No Method i (CARAFATE) 08-29 05-17 st 1 gram 00:00: 00:00 Hospita tablet 00 :00 l Eliquis 5 Yes [facility] mg tablet [facility] 00:00: Hospita 00 l apixaban Yes 5mg Take 5 mg Univ ers (ELIQUIS) 5 3-17 by mouth 2 it y of mg tablet 08:18: (two) [place] 30 times Medical daily. Branch amiodarone Yes 100mg Take 100 Un matt 100 mg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 1.2.840.1 [id number] 2 [id number] Methodi 00:00:00 00:00:00 Surgery Sarai Corbin. 66320.1.1 524 s t 3.430.2.7 Hospit a .3.868235 l .8 2020-04-22 2020-04-22 Telephone Meli, 1.2.840.1 [id number] 026 0835961 Methodi 00:00:00 00:00:[address] 3.430.2.7 Hospit a .3.197118 l .8 2020-04-22 2020-04-22 Travel 1.2.840.1 1.2.440.128 3626 156749 Methodi 00:00:00 00:00:[address] 3.430.2.7 0.2.7.3.698 Ho spita .3.355984 084.8 l .8 2020-04-21 2020-04-21 Emergency Geraldo Tapia 1.2.840.1 [id number] 2 [id number] Methodi 06:51:00 10:43:[address] 3.430.2.7 Hospit a .3.277597 l .8 2020-04-21 2020-04-21 Orders Meisenbach, 1.2.840.1 158713705 03785273 Methodi 00:00:00 00:00:00 Only Sarai Corbin. 29491.1.1 550 s t 3.430.2.7 Hospit a .3.534888 l .8 2020-04-16 2020-04-16 Telephone Carol Ann, 1.2.840.1 [id number] [id number] Methodi 00:00:00 00:00:00 Sarai Corbin. 64356.1.1 673 s t 3.430.2.7 Hospit a .3.999288 l .8 2020-04-10 2020-04-10 Telephone Yazmin, 1.2.840.2 [id number] 95834241 Methodi 00:00:00 00:00:[address] 3.430.2.7 Hospit a .3.107689 l .8 2020-04-07 2020-04-07 Telephone Nahum, 1.2.840.1 643803472 2100 914012 Methodi 00:00:00 00:00:[address] 3.430.2.7 Hospit a .3.345374 l .8 2020-04-01 2020-04-01 Orders Provider, 1.2.840.1 [id number] 2100 234510 Methodi 00:00:00 00:00:00 Only Historical 26136.1.1 049 s t 3.430.2.7 Hospit a .3.568941 l .8 2020-03-31 2020-03-31 Travel 1.2.840.1 1.2.725.478 5827 495882 Methodi 00:00:00 00:00:[address] 3.430.2.7 0.2.7.3.698 Ho spita .3.687965 084.8 l .8 2020-03-27 2020-03-27 Telephone Paula, Min 1.2.840.6 [id number] [id number] Methodi 00:00:00 00:00:[address] 3.430.2.7 Hospit a .3.829170 l .8 Results Test Description Test Time Test Comments Results Result Comments Source Novel Coronavirus 2018 Inhouse 2021-08-03 18:08:00 Test Item Value Reference Range Interpretation Comme nts Novel Coronavirus 2018 Negative Negative Posit bruno results are indicative of the Inhouse (test code = presenc e nkWLWO-ByX-6 RNA, clinical COVNONPUI) correlation wit h patient [...] qualitative detection of nucleic acid s from sxmGEZE-MtH-0 virus and diagn osis of SARS-CoV-2 virusinfection. It is an Emergency Use Authorization ( EUA) testauthorized by the U.S. FDA. BASIC METABOLIC [id number] 09:37:00 Test Item Value Reference Range Interpretation [...] = 9.0 mg/dL 8.0-10.5 N CA) PROTHROMBIN UWSW2953-06-73 09:32:00 Test Item Value Reference Range Interpretation [...] o prevent recurre nt infarct). 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 [facility] - XR CHEST 1 X7329-46-92 00:00:00 EDUARDO MYRICK VERONAName: LIO WATTS : 1955 Sex: F FAX: Michael RahmanUrmilaKarleneankristen Peterson DO [phone] [place]: St: ADM FAX: Jean Paul Scales MD [phone] FAX: Bahman Chopra [phone] Name: [facility]AT[facility] : 1955 Age/S: 66/F [address] [place] [address] Unit #: [id number] Loc: [place] [address] Phys: Bahman Chopra [facility] Acct: [id number] Dis Date: Status:ADM IN PHONE #: [phone] Exam Date: 06/17/2021 1320 FAX #: [phone] Reason: WATCHMAN EXAMS: CPT CODE: [id number] XR CHEST 1 V 11217 PROCEDURE INFORMATION: Exam: XR Chest Examdate and [...] failure/volume loading. 2. Subsegmental atelectasis bilateral. at 1332 Reported and signed by: Lambert Vega M.D. CC: Lele Rahman DO; Mike Lund MD; Bahman Chopra Technologist: RT Taylor(R) Trnbob Date/Time/By: 06/17/2021 (4802) : By: Susanna Orig Print D/T: S: 06/17/2021 (0198) PAGE 1 Signed ReportCOVID 19 Asymptomatic IH [id number] 12:29:00 Test Item Value Reference Range Interpretation [...] been FDA cleare d or approved; the parish asif hasjessica authori zed by FDA under an Em ergency Use Authorizati on(EUA) for use by labo ratories certified under the CLIA thatmeet the requirements to perform moderate, high or waivedcomplexit y tests. BASIC METABOLIC SDHBO2018-05-30 11:37:00 Test Item Value Reference Range Interpretation [...] code = 9.0 mg/dL 8.0-10.5 N CA) PHFDCFLBNK0900-63-23 11:37:00 Test Item Value Reference Range Interpretation Comments PREALBUMIN (test code = PREALB) 24.3 mg/dL 16.0-40.0 N PROTHROMBIN [id number] 11:03:00 Test Item Value Reference Range Interpretation [...] o prevent recurre nt infarct). CBC W/AUTO SCXK6237-02-04 10:59:00 Test Item Value Reference Range Interpretation [...] 0.0-0.1 N NRBC#) - XR CHEST 2 [id number] 00:00:00 [facility] : 1955 Sex: F FAX: Lele Olivera DO [phone] [place]: St: PRE FAX: Jean Paul Scales [facility] [phone] Name: LIO WATTS [facility] : 1955 Age/S: 66/F [address] [place] [address] Bl Unit #: [id number] Loc: [place] [address] Phys: [id number] Dis Date: Status: PRE SDC PHONE #: [phone] Exam Date: 06/16/2021 1120 FAX #: [phone] Reason: PREOP EXAMS: CPT CODE: [id number] XR CHEST 2 V 92022 PROCEDURE INFORMATION: Exam: XR Chest Exam date [...] MD Technologist: RT Andree(R) Trnscrd Date/Time/By: 06/16/2021 (1500) : By: [email or web address] Orig Print D/T: S: 06/16/2021 (4178) PAGE 1 Signed ReportGastrointestinal ofyzu5574-35-55 04:35:05 Test Item Value Reference Interpretation Comments [...] Rotavirus PCR (test Not Detected code = 5678022) Salmonella PCR (test Not Detected code = [...] PCR Not Detected (test code = 7124) [facility] 1 Ur4245-73-75 19:17:40EXAMINATION: XR ABDOMEN 1 CLINICAL HISTORY: R19.7 [...] clips are noted.[id number] [place] [facility] 1 Gqzz6222-49-26 19:41:02EXAMINATION: OR FL < 1 HOUR C-arm fluoroscopy was requested in OR. Location: [facility] OR room 6 Procedure: EGD WITH BOTOX [...] arm fluoroscopy was requested in OR. Location: [facility] OR room 6 Procedure: EGD WITH BOTOX INJECTION INTO THE PYLORUS, ENDOFLIP, ON TABLE ESOPHAGRAM (N/A ) Start: 1140 End:1222 FluoroTime: .19sec Dose: 7.8mGy Tech: A.BIMPRESSION:Intraoperative fluoroscopic images. Radiologist was not present during the examination.Separate operative report will be issued by the physician performingthe procedure.[id number] HospitalS[facility] pathology request 2020-09-08 19:30:47 Test Item Value Reference Range Interpretation Comments Case number (test [id number] code = 7363053) Surgical pathology See link below for PDF report (test code = Lab Report 2255) Result status (test This is Supplemental code = 2575095) Report for [id number] [facility] 1 Vw Vrwnxzyo6494-12-80 23:06:58EXAMINATION: XR CHEST 1 VW PORTABLE HISTORY: [...] enlarged, similar to prior. Bilateral shoulder arthroplasties. [facility]-[id number] Interface, Radiology Results Incoming - 09/06/2020 6:09PM [...] silhouette is enlarged, similar to prior.Bilateral shoulder arthroplasties.[facility]-[id number] KoscmqqgSrsuri8678-97-95 16:47:23Kirit Flood MD 09/05/2020 11:[address]: [...] RSI: Yes Number of Attempts at Approach: [address] [place], [place] [address]EC 12 phsm5176-33-41 23:21:56 Test Item Value Reference Range Interpretation [...] T wave abnormality, consider anterior ischemia-Abnormal [facility]- [facility] qualitative BDY1247-59-50 22:48:41 Test Item Value Reference Range Interpretation Comments Interpretation (test Negative results do code = 6452124) not preclude 2019-nCoV infection and should not be used as the sole basis for treatment or other patient management decisions. Negative results must be combined with clinical observations, patient history, and epidemiological information. COVID-19 qualitative Not-Detected Not-Detected RT-PCR result (test code = 64973-5) COVID-19 qualitative See link below for C ase Number: RT-PCR (test code = PDF Lab Report [id number]) [facility]2021-04-09 16:31:00 Test Item Value Reference Range Interpretation Comments POC Activated Clotting Time (test code 153 s = POC Activated Clotting Time) [place] 259031-04-09 16:31:00 Test Item Value Reference Range Interpretation Comments POC Activated Clotting Time (test code 153 s = POC Activated Clotting Time) [address]04-09 16:31:00 Test Item Value Reference Range Interpretation Comments POC Activated Clotting Time (test code 153 s = POC Activated Clotting Time) [address]04-09 16:31:00 Test Item Value Reference Range Interpretation Comments POC Activated Clotting Time (test code 153 s = POC Activated Clotting Time) [place] 259031-04-09 16:31:00 Test Item Value Reference Range Interpretation Comments POC Activated Clotting Time (test code 153 s = POC Activated Clotting Time) [address]04-09 16:31:00 Test Item Value Reference Range Interpretation Comments POC Activated Clotting Time (test code 153 s = POC Activated Clotting Time) [address]04-09 16:31:00 Test Item Value Reference Range Interpretation Comments POC Activated Clotting Time (test code 153 s = POC Activated Clotting Time) [address]04-09 14:37:00 Test Item Value Reference Range Interpretation Comments POC Activated Clotting Time (test code 454 s = POC Activated Clotting Time) [address]04-09 14:37:00 Test Item Value Reference Range Interpretation Comments POC Activated Clotting Time (test code 454 s = POC Activated Clotting Time) [address]04-09 14:37:00 Test Item Value Reference Range Interpretation Comments POC Activated Clotting Time (test code 454 s = POC Activated Clotting Time) [address]04-09 14:37:00 Test Item Value Reference Range Interpretation Comments POC Activated Clotting Time (test code 454 s = POC Activated Clotting Time) [address]04[address]09 14:37:00 Test Item Value Reference Range Interpretation Comments POC Activated Clotting Time (test code 454 s = POC Activated Clotting Time) [facility]DwyqmkqDIGZPAMMAX3508-67-13 14:37:00 Test Item Value Reference Range Interpretation Comments POC Activated Clotting Time (test code 454 s = POC Activated Clotting Time) [facility] CenterNbavquqOVXRXTUZCQ1255-30-12 14:37:00 Test Item Value Reference Range Interpretation Comments POC Activated Clotting Time (test code 454 s = POC Activated Clotting Time) [facility] CenterAjmmxdwNKCIXNRTXJ6858-15-82 14:13:00 Test Item Value Reference Range Interpretation Comments POC Activated Clotting Time (test code 354 s = POC Activated Clotting Time) [facility] CenterTmxfmgsCCEBFFDZOQ3490-74-83 14:13:00 Test Item Value Reference Range Interpretation Comments POC Activated Clotting Time (test code 354 s = POC Activated Clotting Time) [facility] CenterDfvhhvzSBFFUBJZSS6499-39-97 14:13:00 Test Item Value Reference Range Interpretation Comments POC Activated Clotting Time (test code 354 s = POC Activated Clotting Time) [facility] CenterBypgzmeIIZKQYXCOR9628-70-92 14:13:00 Test Item Value Reference Range Interpretation Comments POC Activated Clotting Time (test code 354 s = POC Activated Clotting Time) [facility] CenterOfsqhiyTVLJZDXYMF1981-94-98 14:13:00 Test Item Value Reference Range Interpretation Comments POC Activated Clotting Time (test code 354 s = POC Activated Clotting Time) [facility] CenterJnqjusmTBKJWDLCLQ3577-28-24 14:13:00 Test Item Value Reference Range Interpretation Comments POC Activated Clotting Time (test code 354 s = POC Activated Clotting Time) [facility] CenterGxzehdmOANDBZYZWK2569-24-12 14:13:00 Test Item Value Reference Range Interpretation Comments POC Activated Clotting Time (test code 354 s = POC Activated Clotting Time) [facility] RGALLUI4833-16-25 10:37:00Negative (08/29/20 5:37 AM) [facility] HMVWJ1705-66-99 10:37:34036Rtjkpsfr HermannCHEM PANEL 2020-08-29 10:37:0028[facility] HermannCHEM UOPSA6578-90-68 10:37:001.01[facility] HermannCHEM VSUTB6819-79-02 10:37:91425Kaijpfla HermannCHEM EYEFI5714-95-18 10:37:003.8[facility] HermannCHEM NATDG9594-77-52 10:37:95515Tbdqnppr HermannCHEM HULTZ4410-21-79 10:37:0028[facility] HermannCHEM CXYYB9378-11-05 10:37:009.8 [facility] HermannCHEM XWCWB4080-12-58 10:37:0011.8[facility] HermannCHEM PANEL 2020-08-29 10:37:0059[facility] HermannCHEM XGKJZ6603-59-98 10:37:002.9[facility] HaekbsyUXIVOXQFHQ3885-45-35 10:37:006.8[facility]orial GvkmzlqJEZKNJOAQM0582-12-20 10:37:004.47[facility] OtspclcYSTMEVHTHK2321-35-65 10:37:0010.6[facility] Marty XMABBJNBFU0975-90-75 10:37:0034.0[facility] VfgtnrlAUFBAXSFPL1029-86-74 10:37:00 76.1Memorial BumzpnxVHRUOYRKNS6286-80-11 10:37:00 Test Item Value Reference Range Interpretation Comments MCH (test code = MCH) 23.8 pg 27.0-31.0 [facility] VycwadcTNGZETNUVB8140-78-38 10:37:0031.3[facility] HermannHEMATOLOGY 2020-08-29 10:37:0018.2[facility] VtmztqbBJGHWPGMVV5443-54-74 10:37:29744Lqunbdvm RxxukoeTUAIVEHEEP9973-00-85 10:37:007.5[facility] WpttyflOCGJJLWTNI5330-45-69 10:37:00 Test Item Value Reference Range Interpretation Comments PT (test code = PT) 12.8 s 12.0-14.7 [facility] YuhuyqtNPHHXLVCUT3925-87-91 10:37:00 Test Item Value Reference Range Interpretation Comments INR (test code = INR) 0.97 1 0.85-1.17 Memorial KktjelaPGTDOWSDUY5045-80-49 10:37:00 Test Item Value Reference Range Interpretation Comments PTT (test code = PTT) 25.0 s 22.9-35.8 Memorial IuyixzcLLMWHJBIWC7276-29-08 10:37:0070.5[facility] HermannHEMATOLOGY 2020-08-29 10:37:0018.8[facility] DqjevmkMYMNHIRRSU0556-26-16 10:37:009.5[facility] NinhykwBICKPQJLVB0987-41-74 10:37:000.9[facility] TdcrnazPBZKVPGYMP5655-85-61 10:37:000.3[facility] FrmfknwLOYGTXFGEE9506-69-07 10:37:004.8[facility] Lester QWFRBRNDIU9018-86-36 10:37:001.3[facility] LutfkqxTULVRDIXON4307-66-93 10:37:000.6 Memorial OyvhgijLKYYWMIPRV8974-56-98 10:37:000.1[facility] HermannHEMATOLOGY 2020-08-29 10:37:001+ *ABN*(08/29/20 5:37 AM)[facility] TxwdgxrFJDGZMPSGN8671-57-74 10:37:00Not Detected (08/29/20 5:37 AM)[facility] HermannBLOOD BANK RESULTS 2020-08-29 10:37:00Negative (08/29/20 5:37 AM)[facility] HermannCHEM PBGLG1896-46-97 10:37:05869Tgivvewi HermannCHEM NJVYJ3085-58-76 10:37:0028[facility] HermannCHEM QXFMO0400-73-07 10:37:001.01[facility] HermannCHEM XZLSQ3375-01-76 10:37:88759 [facility] HermannCHEM WZTUC0268-45-59 10:37:003.8[facility] HermannCHEM PANEL 2020-08-29 10:37:99398Tlifhfdd HermannCHEM HEYBM2441-33-96 10:37:0028[facility] HermannCHEM JYQVJ0926-39-49 10:37:009.8[facility] HermannCHEM BOAYY1454-71-94 10:37:0011.8[facility] HermannCHEM OXRWB7662-24-60 10:37:0059[facility] HermannCHEM DCMFS1851-14-07 10:37:002.9[facility] YakmhkbSSPKAWLDGD3634-16-36 10:37:006.8 Memorial DkathokDRFIVDPYZH4502-77-98 10:37:004.47[facility] HermannHEMATOLOGY 2020-08-29 10:37:0010.6[facility] EqjlujbFJJRQFZPZD2550-95-51 10:37:0034.0[facility] DocrysbWPESKAJJZI7168-14-99 10:37:0076.1[facility] ImhgjqpVGFDIVFWQH4557-21-70 10:37:00 Test Item Value Reference Range Interpretation Comments MCH (test code = MCH) 23.8 pg 27.0-31.0 Memorial OaiksyiHLOPLYDNNZ3017-73-82 10:37:0031.3[facility] HermannHEMATOLOGY 2020-08-29 10:37:0018.2[facility] ReslhfzYQBQNMOQHZ1231-81-79 10:37:89446Bqdmhida XkwizuqRZSOKDEWEO7524-07-72 10:37:007.5[facility] DikmpphCZJFZGVTFN1088-64-69 10:37:00 Test Item Value Reference Range Interpretation Comments PT (test code = PT) 12.8 s 12.0-14.7 Memorial LxmhrehOGEGSWHDSE1465-55-68 10:37:00 Test Item Value Reference Range Interpretation Comments INR (test code = INR) 0.97 1 0.85-1.17 [facility] SwoddilNBIJGISNFT9453-82-94 10:37:00 Test Item Value Reference Range Interpretation Comments PTT (test code = PTT) 25.0 s 22.9-35.8 Memorial AkzwmrhPWJESBIEFD4647-10-23 10:37:0070.5[facility] HermannHEMATOLOGY 2020-08-29 10:37:0018.8[facility] ShacmtxXGMAJWHPTT5399-71-01 10:37:009.5[facility] BntqsmlOLETCXTDVW9593-04-44 10:37:000.9[facility] CqsbeomZLGZQXMBUJ1733-50-30 10:37:000.3[facility] OtndxfwYGOOZUJSOI7789-15-31 10:37:004.8[facility] Lester LXDMCJHZJU1997-93-17 10:37:001.3[facility] UzcqywmTPBWDBSIZS1721-18-34 10:37:000.6 Memorial ZxooeobTQGVQUMXRF3540-00-55 10:37:000.1[facility] HermannHEMATOLOGY 2020-08-29 10:37:001+ *ABN*(08/29/20 5:37 AM)[facility] CmhxbzpGYQAZLXGXP3580-38-63 10:37:00Not Detected (08/29/20 5:37 AM)[facility] HermannBLOOD BANK RESULTS 2020-08-29 10:37:00Negative (08/29/20 5:37 AM)[facility] HermannCHEM CFPER4281-03-85 10:37:42315Uguhafxp HermannCHEM GZHIO7487-31-58 10:37:0028[facility] HermannCHEM MEENO6523-30-85 10:37:001.01[facility] HermannCHEM LZFJJ4597-10-74 10:37:12239 [facility] HermannCHEM NVGVL6605-71-86 10:37:003.8[facility] HermannCHEM PANEL 2020-08-29 10:37:50401Ixbudpzc HermannCHEM YQFTT5098-67-32 10:37:0028[facility] HermannCHEM RMODT8719-21-62 10:37:009.8[facility] HermannCHEM BKBIE2972-22-42 10:37:0011.8[facility] HermannCHEM PSKHB3342-87-07 10:37:0059[facility] HermannCHEM BJVIO0562-07-13 10:37:002.9[facility] QolfotuULODAFSLSS0206-89-82 10:37:006.8 [facility] JcrpunxLENTSVIKWC1537-46-04 10:37:004.47[facility] HermannHEMATOLOGY 2020-08-29 10:37:0010.6[facility] BurldzoUCJBWHDLZT0368-08-81 10:37:0034.0[facility] TssrukvVYJOTNWAHV4198-46-91 10:37:0076.1[facility] PbcssysPIUBEFOJLP2918-65-12 10:37:00 Test Item Value Reference Range Interpretation Comments MCH (test code = MCH) 23.8 pg 27.0-31.0 [facility] CbqrlteVITCZROSOS4046-56-86 10:37:0031.3[facility]annHEMATOLOGY 2020-08-29 10:37:0018.2[facility] YjmbelkQSCFFFONMI8693-86-74 10:37:14659Lfsceans AfgxgcmTLDBYRNNKQ3014-31-02 10:37:007.5[facility] CszwdfgEPQHBDJULT1663-36-31 10:37:00 Test Item Value Reference Range Interpretation Comments PT (test code = PT) 12.8 s 12.0-14.7 [facility] TncdnkdQWZZVFRYRU1676-31-60 10:37:00 Test Item Value Reference Range Interpretation Comments INR (test code = INR) 0.97 1 0.85-1.17 [facility] GscyriiRQIBNIWQHJ0581-34-98 10:37:00 Test Item Value Reference Range Interpretation Comments PTT (test code = PTT) 25.0 s 22.9-35.8 [facility] XvgkdubIAGFJODHAF3189-53-72 10:37:0070.5[facility]annHEMATOLOGY 2020-08-29 10:37:0018.8[facility] WeototfZZCUTPNCRF6931-93-50 10:37:009.5[facility] OragochXSADFEFATR9350-94-16 10:37:000.9[facility] BgapqigYUKFXDNCOE0207-08-67 10:37:000.3[facility] ZlzprwzJHLBMYJQZC3678-21-45 10:37:004.8[facility] Lester JSZUEHVGNO7038-51-36 10:37:001.3[facility] MoczoweSJRWTAYGXW1828-08-71 10:37:000.6 [facility] ZpzxnhoKOBWHYIEKT7282-43-86 10:37:000.1[facility]annHEMATOLOGY 2020-08-29 10:37:001+ *ABN*(08/29/20 5:37 AM)[facility] NdsxlsgNAOHVSTXBX1903-33-16 10:37:00Not Detected (08/29/20 5:37 AM)[facility]annBL[facility] RESULTS 2020-08-29 10:37:00Negative (08/29/20 5:37 AM)[facility]annCHEM NQGUP4347-72-82 10:37:47739Ttxrhlwk HermannCHEM KJZSX7625-25-48 10:37:0028[facility] HermannCHEM YLCKX2979-80-79 10:37:001.01[facility] HermannCHEM FJVXC6154-96-85 10:37:20519 [facility]annCHEM XWSFO5677-41-92 10:37:003.8[facility]annCHEM PANEL 2020-08-29 10:37:63669Rxhgccfv HermannCHEM UUENJ2121-73-11 10:37:0028[facility] HermannCHEM OXYIT9007-29-09 10:37:009.8[facility] HermannCHEM EAZNX9459-79-50 10:37:0011.8[facility] HermannCHEM YNLGD9582-29-66 10:37:0059[facility]annCHEM UVCFH0210-83-35 10:37:002.9[facility] EsckmwdGSSLFLOAIQ9656-05-39 10:37:006.8 [facility] WejokdcMINLICRHHD0978-08-66 10:37:004.47[facility]annHEMATOLOGY 2020-08-29 10:37:0010.6[facility] FausagkAHRVDTUVWI8963-75-27 10:37:0034.0[facility] YahznrdOSEYYFQNNS9348-86-72 10:37:0076.1[facility] LnnynrqOYPKIQJSGN5383-11-15 10:37:00 Test Item Value Reference Range Interpretation Comments MCH (test code = MCH) 23.8 pg 27.0-31.0 [facility] EebhzaqABTLWWHPOD9293-70-52 10:37:0031.3[facility]annHEMATOLOGY 2020-08-29 10:37:0018.2[facility] CividgzDHFVTVHOXK2578-88-02 10:37:37858Qplzngni ZnxevjkNYDJKCQLJH3372-92-65 10:37:007.5[facility] VbldezxFASZRIWGSQ1116-81-81 10:37:00 Test Item Value Reference Range Interpretation Comments PT (test code = PT) 12.8 s 12.0-14.7 [facility] JbjanscUDRCGDJYII7882-44-94 10:37:00 Test Item Value Reference Range Interpretation Comments INR (test code = INR) 0.97 1 0.85-1.17 [facility] SsrfvobFLUDHXPYCO2766-01-37 10:37:00 Test Item Value Reference Range Interpretation Comments PTT (test code = PTT) 25.0 s 22.9-35.8 [facility] QshrbgsFUCSGNOPKN3958-85-88 10:37:0070.5[facility] 2020-08-29 10:37:0018.8[facility] BntirejQEXYOPIESI9992-23-56 10:37:009.5[facility] ZijafddYYSJAXIJWM9870-58-44 10:37:000.9[facility] JvizzomXIWYOGYPBZ4378-67-76 10:37:000.3[facility] IlekbnfDLFBAZBUOD3325-60-41 10:37:004.8[facility] SJLVHPUJCJ7115-72-41 10:37:001.3[facility] FznxbqoEZNAVBJMRQ8573-31-04 10:37:000.6 [facility] UnowqiyYTSGAEGAOQ4082-82-73 10:37:000.1[facility]annHEMATOLOGY 2020-08-29 10:37:001+ *ABN*(08/29/20 5:37 AM)[facility] BadksokALJVDXIOGJ4476-06-34 10:37:00Not Detected (08/29/20 5:37 AM)[facility]annBLOOD BANK RESULTS 2020-08-29 10:37:00Negative (08/29/20 5:37 AM)[facility]annCHEM XXFYR7887-11-73 10:37:33730Qmwubwlk HermannCHEM CUIHK5934-14-52 10:37:0028[facility]annCHEM ZALBN6761-40-27 10:37:001.01[facility]annCHEM JEULC8368-41-27 10:37:78386 [facility]annCHE[facility] CFSJB0882-50-93 10:37:003.8[facility]annCHEM PANEL 2020-08-29 10:37:22055Fiohyniy HermannCHEM IMDXZ8141-99-73 10:37:0028[facility]annCHEM ASEUX8602-23-48 10:37:009.8[facility]annCHE[facility] MLTOK7644-99-37 10:37:0011.8[facility]annCHEM GJRNE1378-21-59 10:37:0059[facility]annCHEM VWATL2676-74-98 10:37:002.9[facility] EahfbgdWYAVJTQJCA7764-19-00 10:37:006.8 [facility] MazcldwFVCBRTWDYW5848-48-64 10:37:004.47[facility]annHEMATOLOGY 2020-08-29 10:37:0010.6[facility] MhtwydiRHEHUZJIPW9996-00-97 10:37:0034.0[facility] SqqfeyyPRWCFKNBCB5986-91-71 10:37:0076.1[facility] LvespxqEOEDHXDLKV9762-08-49 10:37:00 Test Item Value Reference Range Interpretation Comments MCH (test code = MCH) 23.8 pg 27.0-31.0 [facility] MyepplrBULCSBKDTS0040-41-85 10:37:0031.3[facility]annHEMATOLOGY 2020-08-29 10:37:0018.2[facility] EwhlxmaZJKGOUBCRX7122-00-32 10:37:75159Kkxvlcvj TfjcxsdLZQZKHMZYB4145-43-32 10:37:007.5[facility] LfzlelvGEFLROREGJ0516-33-17 10:37:00 Test Item Value Reference Range Interpretation Comments PT (test code = PT) 12.8 s 12.0-14.7 [facility] AhzbuquRBOPUBMZEB2699-50-22 10:37:00 Test Item Value Reference Range Interpretation Comments INR (test code = INR) 0.97 1 0.85-1.17 [facility] YhhvzpwMMRGKGYTNY1893-74-34 10:37:00 Test Item Value Reference Range Interpretation Comments PTT (test code = PTT) 25.0 s 22.9-35.8 [facility] RxxjoycOJVGASLHFR7014-56-18 10:37:0070.5[facility]annHEMATOLOGY 2020-08-29 10:37:0018.8[facility] IkzwvkeFLOOQXVIWH6470-01-80 10:37:009.5[facility] KaewmzzKJLULIGVMB6897-82-83 10:37:000.9[facility] EplftfmGKTTSFCSCI8559-01-98 10:37:000.3[facility] SqldlhbXPPNSCMNPZ7633-25-45 10:37:004.8[facility] HTCMHVHRFV5440-56-81 10:37:001.3[facility] LrhsddnGLNWREZTWN9437-43-85 10:37:000.6 [facility] OumredfECGDONPOKQ7443-49-64 10:37:000.1[facility]annHEMATOLOGY 2020-08-29 10:37:001+ *ABN*(08/29/20 5:37 AM)[facility] GjwvexxUEKHYIGDYD7887-57-74 10:37:00Not Detected (08/29/20 5:37 AM)[facility] HermannBLOOD BANK RESULTS 2020-08-29 10:37:00Negative (08/29/20 5:37 AM)[facility]annCHEM LGXXZ3594-10-02 10:37:27776Nhxmihcy HermannCHEM GCOFJ7697-16-77 10:37:0028[facility]annCHEM DIMXV4439-26-65 10:37:001.01[facility]annCHEM FQUOC7635-73-88 10:37:86343 [facility]annCHE[facility] TBOFS9161-07-75 10:37:003.8[facility] HermannCHEM PANEL 2020-08-29 10:37:62003Ofrxyazb HermannCHEM VLPPF9009-62-30 10:37:0028[facility]annCHEM NKZXQ8881-57-62 10:37:009.8[facility] HermannCHEM BSEFS3632-77-88 10:37:0011.8[facility]annCHEM BTZFI2462-18-77 10:37:0059[facility]annCHEM EYGXG9819-91-00 10:37:002.9[facility] UexmfbeXSOXVJLWMN3866-32-18 10:37:006.8 [facility] QvpnkwkBLWNGYJKTG6188-35-92 10:37:004.47[facility]annHEMATOLOGY 2020-08-29 10:37:0010.6[facility] TzmzapbBTZRLMSLTV2539-49-88 10:37:0034.0[facility] OkoawhoCICXFCPQUI2429-52-62 10:37:0076.1[facility] WjczvgjUOWREVGQHI9023-08-42 10:37:00 Test Item Value Reference Range Interpretation Comments MCH (test code = MCH) 23.8 pg 27.0-31.0 [facility] QhfttsgQKXXGLEGYL0698-82-07 10:37:0031.3[facility]annHEMATOLOGY 2020-08-29 10:37:0018.2[facility] OqlyryrBNNMUUOKSR1298-56-63 10:37:58444Waxpvavw ZmbingnQBTTTFHSDC2108-68-73 10:37:007.5[facility] VpjggzlGHXKPBBZMD3917-85-06 10:37:00 Test Item Value Reference Range Interpretation Comments PT (test code = PT) 12.8 s 12.0-14.7 [facility] IjamhcbGHLXJVPSSE9721-96-23 10:37:00 Test Item Value Reference Range Interpretation Comments INR (test code = INR) 0.97 1 0.85-1.17 [facility] DqwdfwnBPIUXPEDBD8889-50-41 10:37:00 Test Item Value Reference Range Interpretation Comments PTT (test code = PTT) 25.0 s 22.9-35.8 [facility] CugisxnCWWEMIAZES0626-78-59 10:37:0070.5[facility]annHEMATOLOGY 2020-08-29 10:37:0018.8[facility] HtobxrzRPUBAVCQXR6587-10-53 10:37:009.5[facility] QzvyyiiFJLOBWVLLA6592-23-57 10:37:000.9[facility] BccdbriJZWRXTCWJT0145-46-54 10:37:000.3[facility] FnopcsiDWFVOQDXQN3680-82-18 10:37:004.8[facility] Marty WKEOQRHWQV3410-63-84 10:37:001.3[facility] NvogsnyYCRTHCUKIR3143-02-01 10:37:000.6 [facility] YeuuxloLUMBXKKVZT3947-16-67 10:37:000.1[facility]annHEMATOLOGY 2020-08-29 10:37:001+ *ABN*(08/29/20 5:37 AM)[facility] FmiewpuKEFCMZVSKT5749-42-17 10:37:00Not Detected (08/29/20 5:37 AM)[facility]annBLOOD BANK RESULTS 2020-08-29 10:37:00Negative (08/29/20 5:37 AM)[facility] HermannCHEM EPUOL5943-07-55 10:37:64473Rhlykfjl HermannCHEM NYIRD8276-45-86 10:37:0028[facility] HermannCHEM CLOUF4347-98-06 10:37:001.01[facility] HermannCHEM BBBNP9041-04-20 10:37:93958 [facility]annCHEM LIOSU7078-71-48 10:37:003.8[facility] HermannCHEM PANEL 2020-08-29 10:37:39927Upklamdq HermannCHEM FWVZW7067-48-22 10:37:0028[facility] HermannCHEM KLECQ9726-45-14 10:37:009.8[facility] HermannCHEM JYSAF5837-59-45 10:37:0011.8[facility] HermannCHEM YBNJO1038-77-07 10:37:0059[facility]annCHEM IVLPC4876-11-78 10:37:002.9[facility] OsyvpueFDLGKSERRT4652-07-43 10:37:006.8 [facility] BhofvupXYCRJDGHGI4009-09-62 10:37:004.47[facility]annHEMATOLOGY 2020-08-29 10:37:0010.6[facility] JdmzxriNYFYKZZVZA2416-08-53 10:37:0034.0[facility] MderlinKAIYXWZAWU6154-14-78 10:37:0076.1[facility] KjsxwmwLMJTYXBHNZ6034-18-40 10:37:00 Test Item Value Reference Range Interpretation Comments MCH (test code = MCH) 23.8 pg 27.0-31.0 [facility] XosaqfjJYTTLHVEXM5124-87-34 10:37:0031.3[facility]annHEMATOLOGY 2020-08-29 10:37:0018.2[facility] SdcceykWVEGKLAMBT5382-47-20 10:37:90328Layzntsv ZcmdbttRYDLYULSKR7444-61-06 10:37:007.5[facility] LibltlzABMTMLXJWO8655-17-05 10:37:00 Test Item Value Reference Range Interpretation Comments PT (test code = PT) 12.8 s 12.0-14.7 [facility] VvqegiiOHASSFDZLA4977-24-17 10:37:00 Test Item Value Reference Range Interpretation Comments INR (test code = INR) 0.97 1 0.85-1.17 [facility] BhgpnrsWRSFLEODGC1701-00-64 10:37:00 Test Item Value Reference Range Interpretation Comments PTT (test code = PTT) 25.0 s 22.9-35.8 [facility] RygectyPIDZSMVSMA7193-43-23 10:37:0070.5[facility] HermannHEMATOLOGY 2020-08-29 10:37:0018.8[facility] UzditeiPXFGVTEJLP9170-22-94 10:37:009.5[facility] TutwimaUEDXOKLQCQ3309-73-20 10:37:000.9[facility] XcoksifHTKMWCOPUH8955-08-94 10:37:000.3[facility] FdijlijHWJHODREAZ4214-35-92 10:37:004.8[facility] HEILWTTNTX7896-37-61 10:37:001.3[facility] XjznompVADZMKWFKR8714-33-38 10:37:000.6 [facility] VmgwezgPNRGQVGRVZ5563-67-88 10:37:000.1[facility] HermannHEMATOLOGY 2020-08-29 10:37:001+ *ABN*(08/29/20 5:37 AM)[facility] PkceptiUTXVWIZEPX9121-26-53 10:37:00Not Detected (08/29/20 5:37 AM)[facility] 2020-08-27 23:14:39PROCEDURE: NM GASTRIC EMPTYING [...] rate, with complete emptying by 4 hours. [facility]-[id number] Interface, Radiology Results - 08/27/2020 6:17 PM [...] rate, with complete emptying by 4 hours. [facility]-[id number] HospitalMiscellaneous referral test 2020-05-09 21:24:58 Test Item Value Reference Range Interpretation Comments Misc test HIV-1 RNA QUAL PCR name (test code = 2566) Misc test see note Human Immunodef iciency result (test Virus 1 (HIV-1) by code = 1730) Qualitative Carton Machine Operator-M ediated Amplification ( TMA) [facility] test code 4391496 HIV-1 by Qualit ative TMA See Note SOURCE/SPECIMEN PLASMA HIV-1 RNA, QUAL ITATIVE TMA HIV-1 RNA, QL TMA T COMPUTER SYSTEMS ANALYST Test Not Performed. Initial testing necessi tated a repeat, but the re was insufficient sa mple to perform repeat. SAMPLE LEFT FOR REPEAT IS 50 uL. NEED 1000 u L TO RUN REPEAT. This te st was performed using the APTIMA(R) HIV-R NA Qualitative Ass ay (Gen-Probe). ======== ======== Te st performed by:[facility] [place] [id number] KYLE (test HIVQL - HIV-1 RNA, code = KYLE) Qualitative TMA (FROZEN)[facility]UP Test Code: 4825794Zitgxv: plasma [facility] upper esgbhmvrc8999-03-23 04:57:00 Vascular Ultrasound Laboratory Upper Extremity Venous Report [address] [place] [address] Pat.Name: LIO WATTS Pat.ID: [id number] St.Date: 04/30/2020 Refer.MD: ELISEO ARCE MD Exam Time: 5:04:00 PM Study Type:UE Venous Age: 9 1955,65Y Sex: FEMALE Sonogrphr: Dwayne Macias, IBIS, SANKET Pat. Stat.:Inpatient Room: [facility] WT20 2020 Tape Vol: EDGAR, CPT - 4: 70176 Echo Event ID:[id number] Order ID: [id number] Reason for Study:Arm swelling or pain, DVT [...] veins.*Preliminary result reported to ASHLEY Santos @ 9018 on 04/30/20.PHYSICIAN INTERPRETATION Venous examination of the both upper extremities and neck demonstratedno evidence of deep venous thrombosis. Total superficial vein thrombosis of the right basilic vein. FINDINGS: Signed 04/30/2020 10:57 PMFrancis Cabral MD, RPVIInterface, Radiology Results In - 04/30/2020 10:58 PM CST Vascular Ultrasound Laboratory Upper Extremity Venous Report [id number] [address] Pat.Name: MAC LIOMaria Elena Lozano.ID: [id number] .Date: 04/30/2020 Refer.MD: ELISEO ARCE MD Exam Time: 5:04:00 PM Study Type:UE Venous Age: 9 1955,65Y Sex: FEMALE Sonogrphr: Dwayne Macias, IBIS, SANKET Pat. Stat.:Inpatient Room: [place] [address] 2020 Tape Vol: JM, CPT - 4: 27780 Echo Event ID:[id number] Order ID: [id number] Reason for Study:Arm swelling or pain, DVT [...] veins.*Preliminary result reported to ASHLEY Santos @ 0620 on 04/30/20.PHYSICIAN INTERPRETATION Venous examination of the both upper extremities and neck demonstratedno evidence of deep venous thrombosis. Total superficial vein thrombosis of the right basilic vein. FINDINGS: ------Signed 04/30/2020 10:57 PMFrancis Cabral MD, [facility] Chest 2 Ah2620-83-81 22:21:01EXAMINATION: XR CHEST 2 VW CLINICAL HISTORY: [...] cardiopulmonary process or active disease of the chest.1D2RAD_PS01[facility] Unsuccessful Htvkykb6838-68-93 17:14:34ANicole zhang RN 04/30/2020 11:25 AMMidline Unsuccessful [...] place a PIV g.20 in lower arm .[facility] 1 Vw Pnuhuwgs9446-22-29 16:20:14EXAMINATION: XR ABDOMEN 1 VW PORTABLE CLINICAL HISTORY: Abdominal pain post op COMPARISON: No prior IMPRESSION:1.Residual barium within the colon throughout. No small bowel obstruction noted. [facility]-2U [id number] Interface, Radiology Results Incoming - 04/30/2020 10:23 AM CST EXAMINATION: XR ABDOMEN 1 VW PORTABLECLINICAL HISTORY: Abdominalpain post opCOMPARISON: No priorIMPRESSION:1.Residual barium within the colon throughout. No smallbowel obstruction noted.[facility]-[id number] Health North Campus TylerJzetcwvcEgpfzi4582-13-53 20:57:57Carlee Malloy MD 04/28/2020 2:59 PMAirwayPerformed by: Carlee Malloy MDAuthorized by: Carlee Malloy MD Location: ORUrgency: ElectiveDifficult Airway: No Anesthesiologist: Kvng Malloy MDResident/AMMUNITION STORAGE SUPERINTENDENT/AA: Allan Morocho DOPerformed by: resident/AMMUNITION STORAGE SUPERINTENDENT/AAPreoxygenated naff465% O2: Yes C- spine Precautions Maintained Throughout: [...] No Number of Attempts at Approach: 1 [facility] HospitalTransthoracic Echocardiogram Complete, (w Contrast, Strain and 3D if needed)2020-04-28 00:20:00 Echocardiography Report [address] [place] [address] Pat.Name: LIO WATTS [facility].ID: [id number] .Date: 04/27/2020 Refer.MD: ELISEO ARCE MD Exam Time: 2:21:00 PM Study Type:Routine Echo Height: 64in Weight: 213lb BSA: 2.01 m2 Age: 9 1955,65Y Sex: FEMALE BP: 128/89 HR: 102 bpm Sonogrphr: SANKET Perkins Pat. Stat.:Inpatient Room: [facility] Study Status:Final Echo Event ID:[id number] Order ID: [id number] Reason for Study:Atrial FibrillationHistory / Clinical:Hypertension Procedures: [...] estimate PA systolic pressure. MEASUREMENTS: 2DParasternal Long [place] Ao An 2.2 cm LVPWd 1 cm [...] - 04/27/2020 6:21 PM CST Echocardiography Report [id number] [address] Pat.Name: LIO WATTS.ID: [id number] .Date: 04/27/2020 Refer.MD: ELISEO ARCE MD Exam Time: 2:21:00 PM Study Type:Routine Echo Height: 64in Weight: 213lb BSA: 2.01 m2 Age: 9 1955,65Y Sex: FEMALE BP: 128/89 HR: 102 bpm Sonogrphr: SANKET Perkins Pat. Stat.:Inpatient Room: [facility] Study Status:Final Echo Event ID:[id number] Order ID: [id number] Reason for Study:Atrial FibrillationHistory / Clinical:Hypertension Procedures: [...] PA systolic pressure.- MEASUREMENTS: ---- 2DParasternal Long [place] Ao An 2.2 cm LVPWd 1 cm [...] LVOT CI 3.1 l/m/m2 Signed 04/27/2020 06:20 PMMom[facility] dar[facility] MarielyNicoNorth [facility] Esophagram Double Iwkucrak9339-70-69 18:07:12EXAMINATION: FL ESOPHAGRAM DOUBLE CONTRAST CLINICAL HISTORY: [...] Wo Contrast Abdomen Wo Contrast Pelvis Wo Mikeetfu7631-80-62 15:23:55EXAMINATION: CT CHEST WO CONTRAST ABDOMEN WO [...] chronic and incidental findings as detailed above. [facility]-[id number] Dictated and approved by radiology resi dent/fellow: Jenna Valenzuela M.D. I, Medhat Flowers Jr., M.D., personally reviewed the images and resident's/fellow's findings and agree with the final report.[facility], Radiology Results Incoming - 04/21/2020 9:27 AM [...] aorta.4.Additional chronic and incidental findings as detailed above.[facility]-[id number] and approved by doctor of radiology/fellow: Jenna Valenzuela M.D.I, Medhat Flowers Jr., M.D., personally reviewed the images and resident's/fellow's findings and agree with the final report. [facility], GC, TV,PCR, IN PKEDP4645-05-63 15:38:00 Test Item Value Reference Range Interpretation Comments FT (test code = CHTR) Not detected (qualifier Not Detected N value) FT (test code = Not detected (qualifier Not Detected N NGONO) value) FT (test code = TRVG) Not detected (qualifier Not Detected N value) URINALYSIS WITH SIVWXBQLKCS8494-06-05 10:57:00 Test Item Value Reference Range Interpretation Comments Color (test code = UCOLR) Dk. Yellow Clarity (test code = UCLAR) Hazy Glucose (test code = UGLUC) NEGATIVE NEGATIVE N Bilirubin (test code = UBILI) NEGATIVE NEGATIVE N Ketones (test code = UKET) NEGATIVE NEGATIVE N Specific [place] (test code = 1.025 1.005-1.030 A USPGR) [...]
[2021-08-10 07:36] LABS: Absolute Lymphocytes (CBC) 1.8 K/uL (0.7-4.9); Hematocrit 31.7 % (36.0-45.0); Lymphocytes % 23.8 % (15.3-44.8); MPV 7.2 fL (7.6-11.3); RBC Red Blood Cell Count 4.21 M/uL (3.86-4.86)
[2021-08-10 07:57] LABS: Potassium 3.2 mmol/L (3.5-5.1); Troponin High Sensitivity 10.1 pg/mL (<58.9)
[2021-08-10] MEDS ORDERED: MORPHINE 2 MG/ML SYR ONE ×2 (07:58→09:21)
--- NOTE | 2021-08-10 08:18 | RAD REPORT ---
EXAM DESCRIPTION: Patrick Single View3 7:57 am CLINICAL HISTORY: Shortness of breath COMPARISON: July 2021 FINDINGS: Mild bilateral interstitial lung opacities. The heart is mildly enlarged IMPRESSION: These findings may indicate mild CHF
[2021-08-10] MEDS ORDERED: ALBUTEROL 2.5 MG/3 ML NEB SOL ONE (08:38)
--- NOTE | 2021-08-10 10:41 | EDPHYS ---
Physician Documentation [facility] Name: Fawn Fleming Age: 66 yrs Sex: Female : 1955 Arrival Date: 08/10/2021 Time: 06:55 Bed 5 Private MD: Lele Rahman H ED Physician Joey Jung HPI: 08/10 09:22 This 66 yrs old Female presents to ER via Wheelchair with complaints of Breathing kdr Difficulty. 09:22 The patient has shortness of breath at rest, with light activity. Onset: The kdr symptoms/episode began/occurred gradually, 1 week(s) ago. Duration: The symptoms are continuous, Shortness of breath waxes and wanes. The patient's shortness of breath is aggravated by exertion, light activity, walking, is alleviated by rest. Associated signs and symptoms: Pertinent positives: chest pain, Pertinent negatives: non-productive cough, productive cough, diaphoresis, dizziness, fever, hemoptysis, loss of consciousness, nausea, numbness in extremities, visual changes, vomiting. Severity of symptoms: At their worst the symptoms were mild in the emergency department the symptoms are unchanged. The patient has experienced similar episodes in the past, multiple times. Patient came to the ED several days ago and was busy at that time. She had the same complaint but since it was busy she decided to leave. Her symptoms have not changed appreciably since then. Historical: - Allergies: 07:16 Bactrim DS; aa5 07:16 butorphanol tartrate; aa5 07:16 Fentanyl; aa5 07:16 Reglan; aa5 07:16 Stadol; aa5 07:16 sulfamethoxazole (bulk); aa5 07:16 TRIMETHOPRIM; aa5 - PMHx: 07:16 Anxiety; Atrial Fib; Bipolar disorder; Chronic pain; COPD; esophageal varices; aa5 Hepatitis; HIV; Hypertension; Migraines; Panic Attacks; - PSHx: 07:16 Appendectomy; Bilateral shoulder repair; Cholecystectomy; hernia repair; R wrist SX; aa5 - Immunization history:: Client reports receiving the 2nd dose of the Covid vaccine. - Social history:: Smoking status: Patient/guardian denies using tobacco, but has a distant history of tobacco abuse. ROS: 09:22 Constitutional: Negative for fever, chills, and weight loss, Eyes: Negative for injury, kdr pain, redness, and discharge, Neck: Negative for injury, pain, and swelling, Abdomen/GI: Negative for abdominal pain, nausea, vomiting, diarrhea, and constipation, Back: Negative for injury and pain, MS/Extremity: Negative for injury and deformity, Skin: Negative for injury, rash, and discoloration, Neuro: Negative for headache, weakness, numbness, tingling, and seizure activity. Psych: Negative for depression, anxiety, suicide ideation, homicidal ideation, and hallucinations, Allergy/Immunology: Negative for hives, rash, and allergies, Endocrine: Negative for neck swelling, polydipsia, polyuria, polyphagia, and marked weight changes, Hematologic/Lymphatic: Negative for swollen nodes, abnormal bleeding, and unusual bruising. 09:22 Cardiovascular: Positive for chest pain, of the anterior aspect of left upper chest, Negative for edema, orthopnea, palpitations, paroxysmal nocturnal dyspnea. Exam: 09:22 Constitutional: This is a well developed, well nourished patient who is awake, alert, kdr and in no acute distress. Head/Face: Normocephalic, atraumatic. Eyes: Pupils equal round and reactive to light, extra-ocular motions intact. Lids and lashes normal. Conjunctiva and sclera are non-icteric and not injected. Cornea within normal limits. Periorbital areas with no swelling, redness, or edema. Neck: Trachea midline, no thyromegaly or masses palpated, and no cervical lymphadenopathy. Supple, full range of motion without nuchal rigidity, or vertebral point tenderness. No Meningismus. Chest/axilla: Normal chest wall appearance and motion. Nontender with no deformity. No lesions are appreciated. Cardiovascular: Regular rate and rhythm with a normal S1 and S2. No gallops, murmurs, or rubs. Normal PMI, no JVD. No pulse deficits. Respiratory: Lungs have equal breath sounds bilaterally, clear to auscultation and percussion. No rales, rhonchi or wheezes noted. No increased work of breathing, no retractions or nasal flaring. Abdomen/GI: Soft, non-tender, with normal bowel sounds. No distension or tympany. No guarding or rebound. No evidence of tenderness throughout. Back: No spinal tenderness. No costovertebral tenderness. Full range of motion. Skin: Warm, dry with normal turgor. Normal color with no rashes, no lesions, and no evidence of cellulitis. MS/ Extremity: Pulses equal, no cyanosis. Neurovascular intact. Full, normal range of motion. Neuro: Awake and alert, GCS 15, oriented to person, place, time, and situation. Cranial nerves II-XII grossly intact. Motor strength 5/5 in all extremities. Sensory grossly intact. Cerebellar exam normal. Normal gait. Psych: Awake, alert, with orientation to person, place and time. Behavior, mood, and affect are within normal limits. 09:22 Musculoskeletal/extremity: Extremities: grossly normal except: erythema, swelling, tenderness, Left hand. Vital Signs: 07:10 BP 147 / 73; Pulse 61; Resp 24 S; Temp 97.9(TE); Pulse Ox 98% on R/A; Weight 90.26 kg aa5 (R); Height 5 ft. 4 in. (162.56 cm) (R); Pain 0/10; 07:15 BP 147 / 73; Pulse 63; Resp 20; Pulse Ox 98% on R/A; jh6 08:45 BP 125 / 77; Pulse 58; Resp 18; Pulse Ox 96% ; Pain 6/10; jh6 10:00 BP 125 / 75; Pulse 61; Resp 18; Pulse Ox 100% on R/A; Pain 2/10; jh6 07:10 Body Mass Index 34.16 (90.26 kg, 162.56 cm) aa5 MDM: 09:22 Data reviewed: vital signs, nurses notes, lab test result(s), EKG, radiologic studies. kdr Counseling: I had a detailed discussion with the patient and/or guardian regarding: the historical points, exam findings, and any diagnostic results supporting the discharge/admit diagnosis, lab results, radiology results, the need for outpatient follow up. 10:38 ED course: . kdr 10:40 Patient medically screened. kdr 08/10 07:23 Order name: Basic Metabolic Panel; Complete Time: 09:32 kdr 08/10 07:23 Order name: CBC with Diff; Complete Time: 09:32 kdr 08/10 07:23 Order name: Troponin HS; Complete Time: 09:32 kdr 08/10 07:23 Order name: XRAY Chest (1 view); Complete Time: 09:32 kdr 08/10 09:37 Order name: BNP; Complete Time: 10:37 kdr 08/10 09:39 Order name: LAB Add On bd 08/10 07:23 Order name: EKG; Complete Time: 07:24 kdr 08/10 07:23 Order name: Cardiac monitoring; Complete Time: 07:32 kdr 08/10 07:46 Order name: UPPER EXTREMITY VENOUS UNILATE EDMS 08/10 07:23 Order name: EKG - Nurse/Tech; Complete Time: 07:43 kdr 08/10 07:23 Order name: IV Saline Lock; Complete Time: 07:59 kdr 08/10 07:23 Order name: Labs collected and sent; Complete Time: 07:59 kdr 08/10 07:23 Order name: O2 Per Protocol; Complete Time: 07:32 kdr 08/10 07:23 Order name: O2 Sat Monitoring; Complete Time: 07:32 kdr Administered Medications: 07:57 Drug: morphine 2 mg Route: IVP; Site: Other; [facility] 08:40 Drug: Albuterol 2.5 mg Route: Inhalation; [facility] 10:44 Follow up: Response: No adverse reaction [facility] 09:13 Drug: morphine 2 mg Route: IVP; Site: Other; 10:00 Follow up: Response: No adverse reaction restrepo 10:45 Follow up: Response: Pain is decreased [facility] 10:44 Drug: LaSIX (furosemide) 20 mg Route: PO; [facility] 10:44 Drug: Potassium Chloride 40 mEq Route: PO; [facility] Disposition Summary: 08/10/21 10:40 Discharge Ordered Location: Home kdr Problem: new kdr Symptoms: have improved kdr Condition: Stable kdr Diagnosis - Unspecified systolic (congestive) heart failure kdr - Hypokalemia kdr Followup: kdr - With: Lele Rahman DO - When: 2 - 3 days - Reason: If symptoms return, Further diagnostic work-up, Recheck today's complaints, Continuance of care, Re-evaluation by your physician Discharge Instructions: - Discharge Summary Sheet kdr - Potassium Content of Foods kdr - Heart Failure, Diagnosis, Blmi-jx-Adqy kdr - Hypokalemia kdr - Living With Heart Failure kdr Forms: - Medication Reconciliation Form kdr - Thank You Letter kdr Prescriptions: - Potassium Chloride 20 meq Oral Packet - take 1 packet by ORAL route once daily 1 packet in 6 (six) ounces of water or kdr juice; Take after meal; 30 packet; Refills: 0, Product Selection Permitted Signatures: Dispatcher [employer] Joey Sanabria MD MD kdr Calderon, Audri, RN RN [id number] Karen Lo RN RN [id number] Miranda-StagerTata RN RN restrepo Corrections: (The following items were deleted from the chart) 07:46 07:45 Extremity Venous [email or web address] ordered. EDMS EDMS
--- NOTE | 2021-08-10 10:41 | ER ---
Nurse's Notes [facility] Name: Fawn Fleming Age: 66 yrs Sex: Female : 1955 Arrival Date: 08/10/2021 Time: 06:55 Bed 5 Private MD: Lele Rahman H Diagnosis: Unspecified systolic (congestive) heart failure;Hypokalemia Presentation: 08/10 07:10 Method Of Arrival: Wheelchair aa5 07:10 Chief complaint: Patient states: SOB that began yesterday. Pt denies cough, reports hx aa5 of CHF. Coronavirus screen: shortness of breath. Ebola Screen: No symptoms or risks identified at this time. Initial Sepsis Screen: Does the patient meet any 2 criteria? RR > 20 per min. Does the patient have a suspected source of infection? No. Patient's initial sepsis screen is negative. Risk Assessment: Do you want to hurt yourself or someone else? Patient reports no desire to harm self or others. Onset of symptoms was July 2021. 07:10 Acuity: BLAYNE 3 aa5 Triage Assessment: 08:30 Respiratory: the patient has mild shortness of breath. 6 Historical: - Allergies: 07:16 Bactrim DS; aa5 07:16 butorphanol tartrate; aa5 07:16 Fentanyl; aa5 07:16 Reglan; aa5 07:16 Stadol; aa5 07:16 sulfamethoxazole (bulk); aa5 07:16 TRIMETHOPRIM; aa5 - PMHx: 07:16 Anxiety; Atrial Fib; Bipolar disorder; Chronic pain; COPD; esophageal varices; aa5 Hepatitis; HIV; Hypertension; Migraines; Panic Attacks; - PSHx: 07:16 Appendectomy; Bilateral shoulder repair; Cholecystectomy; hernia repair; R wrist SX; aa5 - Immunization history:: Client reports receiving the 2nd dose of the Covid vaccine. - Social history:: Smoking status: Patient/guardian denies using tobacco, but has a distant history of tobacco abuse. Screenin:35 Abuse screen: Denies threats or abuse. Nutritional screening: No deficits noted. jh6 Tuberculosis screening: No symptoms or risk factors identified. Fall Risk IV access (20 points). Assessment: 07:33 General: Appears in no apparent distress. Behavior is calm, cooperative. Pain: jh6 Complains of pain in anterior aspect of left upper chest Pain currently is 3 out of 10 on a pain scale. Quality of pain is described as sharp, Pain began 2-3 days ago. Is intermittent, Aggravated by coughing. Cardiovascular: No deficits noted. Reports chest pain. Cardiovascular: Rhythm is. Respiratory: Reports shortness of breath on exertion cough that is non-productive, pain with cough Airway is patent Respiratory effort is even, unlabored, Breath sounds with wheezes bilaterally. in right upper lobe and left upper lobe. 08:30 Reassessment: Patient and/or family updated on plan of care and expected duration. Pain jh6 level reassessed. Patient is alert, oriented x 3, equal unlabored respirations, skin warm/dry/pink. Patient states feeling better. 08:30 Pain: Complains of pain in right hand Pain currently is 5 out of 10 on a pain scale. jh6 Quality of pain is described as aching, Pain began 2 wks ago. pt states rt hand still hurting from iv sick. reports that pain to l chest is no longer present. Vital Signs: 07:10 BP 147 / 73; Pulse 61; Resp 24 S; Temp 97.9(TE); Pulse Ox 98% on R/A; Weight 90.26 kg aa5 (R); Height 5 ft. 4 in. (162.56 cm) (R); Pain 0/10; 07:15 BP 147 / 73; Pulse 63; Resp 20; Pulse Ox 98% on R/A; jh6 08:45 BP 125 / 77; Pulse 58; Resp 18; Pulse Ox 96% ; Pain 6/10; jh6 10:00 BP 125 / 75; Pulse 61; Resp 18; Pulse Ox 100% on R/A; Pain 2/10; jh6 07:10 Body Mass Index 34.16 (90.26 kg, 162.56 cm) aa5 ED Course: 06:55 Patient arrived in ED. es 06:56 Lele Rahman DO is Private Physician. es 07:08 Karen Lo, RN is Primary Nurse. jh6 07:10 Arm band placed on. aa5 07:16 Triage completed. aa5 07:20 No provider procedures requiring assistance completed. Initial lab(s) drawn, by de, bob sent to lab. EKG done. 07:22 Joey Jung MD is Attending Physician. kdr 07:58 XRAY Chest (1 view) In Process Unspecified. EDMS 08:00 Placed in gown. Bed in low position. Call light in reach. Side rails up X 1. jh6 08:28 UPPER EXTREMITY VENOUS UNILATE In Process Unspecified. EDMS 08:30 Patient moved back from radiology. jh6 10:39 Lele Rahman DO is Referral Physician. kdr 10:39 LAB Add On Sent. restrepo 11:01 IV discontinued, intact, bleeding controlled, No redness/swelling at site. Pressure jh6 dressing applied. Administered Medications: 07:57 Drug: morphine 2 mg Route: IVP; Site: Other; jh6 08:40 Drug: Albuterol 2.5 mg Route: Inhalation; jh6 10:44 Follow up: Response: No adverse reaction jh6 09:13 Drug: morphine 2 mg Route: IVP; Site: Other; restrepo 10:00 Follow up: Response: No adverse reaction restrepo 10:45 Follow up: Response: Pain is decreased jh6 10:44 Drug: LaSIX (furosemide) 20 mg Route: PO; jh6 10:44 Drug: Potassium Chloride 40 mEq Route: PO; 6 Outcome: 10:40 Discharge ordered by . kdr 11:00 Discharged to home ambulatory. jh6 11:00 Condition: improved 11:00 Discharge instructions given to patient, Instructed on discharge instructions, Demonstrated understanding of instructions, follow-up care, medications, Prescriptions given X 1. 11:02 Patient left the ED. [facility] Signatures: Dispatcher [employer] [facility] Joey Jung MD MD [facility] [employer] Larios Audri, RN RN aa5 Karen Lo RN RN 6 Tata Jarvis RN RN
[2021-08-10] MEDS ORDERED: POTASSIUM CL SA 10 MEQ TAB PO ONE (10:44)
[2021-08-10] MEDS ORDERED: FUROSEMIDE 20 MG TABLET ONE (10:44)
[2021-08-10 11:07] VITALS: TEMP 97.9
[2021-08-10 11:11] VITALS: BP 125/75; O2SAT 100
--- NOTE | 2021-08-10 13:47 | RAD REPORT ---
EXAM DESCRIPTION: US - UPPER EXTREMITY VENOUS UNILATE - 08/10/2021 8:28 am CLINICAL HISTORY: Left arm pain and swelling COMPARISON: None. FINDINGS: Left internal jugular vein, left subclavian vein, left axillary vein, left brachial vein, left cephalic, left basilic, left ulnar and left radial veins demonstrate phasic signal. The veins ar e compressible. Doppler demonstrates good flow. No thrombus visualized in hand veins. IMPRESSION: No sonographic evidence of thrombus involving the left upper extremity veins.
--- NOTE | 2021-08-11 08:46 | EKG ---
Test Date: 2021-08-10 Test Time: 07:35:25 [employer] Worker: CARLOS MEASUREMENT RESULTS: Intervals: Rate: 60 WA: 148 QRSD: 88 QT: 470 QTc: 470 [place]: P: 29 WA: 148 QRS: -4 T: -9 INTERPRETIVE STATEMENTS: Normal sinus rhythm Voltage criteria for left ventricular hypertrophy Nonspecific ST and T wave abnormality Abnormal ECG Compared to ECG 07/23/2021 13:42:27 Left ventricular hypertrophy now present First degree AV block no longer present ST (T wave) deviation still present Electronically Signed On 08-11-21 08:42:35 CDT by Per Crane
== END 2021-08-10 11:02 | disposition home or self-care (01) ==
LOC: ER 06:47
DX: I50.20 Unspecified systolic (congestive) heart failure (principal); E87.6 Hypokalemia; I10 Essential (primary) hypertension; I48.91 Unspecified atrial fibrillation; Z21 Asymptomatic human immunodeficiency virus [HIV] infection status; Z88.1 Allergy status to other antibiotic agents; Z88.2 Allergy status to sulfonamides; Z88.5 Allergy status to narcotic agent; Z88.8 Allergy status to other drugs, medicaments and biological substances
CPT/HCPCS: 93005; 85025; 80048; 36415; 84484; 83880; 71045; 93971; 96374; 99284; J2270 ×2

== ENCOUNTER 2021-08-11 14:45 | Emergency (ER) | payer OTHER ==
--- OUTSIDE RECORDS SUMMARY | 2021-08-11 14:55 | XMS REPORT | Continuity of Care Document ---
:[address] [facility] t Address [address] [place] [address] Care Team Providers Name Role Phone Francisco Rahman Primary Care Physician Ashely Attending Clinician Unavailable PANKAJ Attending Clinician Unavailable RONALD Attending Clinician Unavailable Ap JENKINS Attending Clinician Doctor Unassigned, Name Attending Clinician Unavailable Ronald DHILLON Attending Clinician Prabhu SANCHEZ Attending Clinician Unavailable Luisana Maharaj NP Attending Clinician Yazmin JENKINS Attending Clinician [facility] Attending Clinician Unavailable Devin HUITRONP, R [...] Date Expiration Date S gabino [facility] COMMUNITY PLAN [id number] 2012 [employer] OON 00:00:00 [facility] DUAL [id number] 2020 COMP HMO D SNP 00:00:00 MEDICAID [place] [id number] 2020 00:00:00 Problems Condition Condition Condition Status Onset Resolution Last Treating Co mments Source Name Details Category Date Date Treatment Clinician Date Gastropare Gastropare Disease Active Overview : Methodi sis sis 4-[address] 00:00: [facility] 00 note l might be different from the original. Added automatic ally from request for surgery [id number] Dysphagia Dysphagia Disease Active Overview: Methodi 4-[address] 00:00: [facility] 00 note l might be different from the original. Added automatic ally from request for surgery [id number] CCL / EPS Diagnosis Active 2020-10-15 Memoria PVI 3-30 17:07:00 l ABLATION CCL / 00:00: Marty W/ CARTO / EPS PVI 00 GA / T ABLATION W/ CARTO / GA / T Active 08/19/2020 [facility] Food Food Disease Active 2019-05 Methodi intoleranc [...] (BMI 2-19 ity of 30-39.9) 30-39.9) 00:00: [place] [facility] Anemia Anemia Disease Active 2014-05 Univers 0-03 ity of 00:00: [place] [facility] Hypovolemi Hypovolemi Disease Active 2014-05 U nivers a due to a due to 0-02 it[facility] of hemorrhage hemorrhage [place] [facility] Chest pain Chest pain Disease Active 2014-05 U nivers 0-02 ity of 00:00: [place] [facility] 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:00: [place] shoulder shoulder 00 Medica l arthroplas arthroplas Br anch ty ty Posttrauma Posttrauma Disease Active U nivers tic stress tic stress 09-27 it y of disorder disorder 00:00: [place] [facility] 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 00:00: [place] virus virus 00 Medical (HIV) (HIV) Branch disease disease Bipolar 2 Bipolar 2 Disease Active Uni vers disorder disorder 11-18 ity of 00:00: [place] [facility] Chronic Chronic Disease Active Univers hepatitis hepatitis 11-18 ity of C C 00:00: [place] [facility] Hypertensi Hypertensi Disease Active U nivers on on 11-18 ity of 00:00: [place] [facility] Allergies, Adverse Reactions, Alerts Allergy Allergy Status Severity Reaction(s) Onset Inactive Treating Comm ents Source Name Type Date Date Clinician sulfamet DA Active [facility] N/V [facility] hoxazole 1-25 Clear 00:00: [address] trimetho DA Active SV [facility] prim 1-25 Clear 00:00: Garcia 00 [facility] codeine DA Active SV N/V [facility] 1-25 Clear 00:00: Garcia [facility] Metoclop Propensi Active [place] ramide ty to [...] Date Stop Date Source Natural father Diabetes [facility] Natural father Other - see comments [facility] Natural father [facility] Disease [facility] Natural father Hypertension [facility] [place] Natural father Kidney disease Method [facility] Natural mother Cancer [facility] Social History Social Habit Start Date Stop Date Quantity Comments Source History SDOH [facility] Alcohol Comment History SDOH [facility] Alcohol Std Drinks Exposure to Not sure [facility] SARS-CoV-2 (event) [facility] Binge History of tobacco Smoker [facility] use Hospital Alcohol intake 2021-07-14 2021-07-14 Ex-drinker [facility] 00:00:00 00:00:00 (finding) Cigarettes smoked 2020-12-08 2020-12-[address] current (pack per 00:00:00 00:00:00 Hospita l day) - Reported Cigarette 2020-12-08 2020-12-08 [facility] pack-[facility] 00:00:00 00:00:00 Hospital Tobacco use and 2020-10-31 2020-10-31 Smokeless tobacco [facility] exposure 00:00:00 00:00:00 non-user History SDMO 2020-10-31 2020-10-31 1 [facility] Alcohol Frequency 00:00:00 00:00:00 Tobacco Comment 2015-02-14 2015-02-14 Smokes approx 1-2 Un iversity of 00:00:00 00:00:00 cigarettes per [place] [facility] porfirio day when she Branch smokes Sex [birth year] [facility] 00:00:00 00:00:00 Smoking Status Start Date Stop Date Source Former smoker 2020-12-08 00:00:00 2020-12-08 00:00:00 [facility] Medications Ordered Filled Start Stop Current Ordering Indication Dosage Frequency Signature Comments Components Source Medication Medication Date Date Medication? Clinician (SIG) Name Name LORazepam 1 Yes [id number] 1mg Take 1 Univers mg tablet 3-21 tablet by ity o f 00:00: mouth 3 [place] 00 (three) Medical times Branch daily as needed (anxiety). raltegravir Yes 400mg Q.5D Take 400 U T (Isentress) 2-22 mg by Health 400 MG 09:09: mouth 2 tablet 52 (two) times a day. LORazepam 1 2021- No [id number] 1mg Take 1 Univers mg tablet 2-21 03-16 tablet by ity of 00:00: 00:00 mouth 3 [place] 00 :00 (three) Medical times Branch daily as needed (anxiety). furosemide Yes 40mg Q.5D Take 40 mg U T (Lasix) 40 2-08 by mouth 2 Hea lth MG tablet 00:00: (two) 00 times a day. promethazin 0 Yes 25mg Q.5D Take 25 mg UT e 2-08 by mouth 2 Health (Phenergan) 00:00: (two) 25 MG 00 times a tablet day. buPROPion 0 Yes [id number] 150mg Take 1 U nivers XL 1-24 tablet by ity of (WELLBUTRIN 00:00: mouth [place] XL) 150 mg 00 daily. Medical 24 hr Branch tablet busPIRone 2021-0 Yes [id number] 30mg Take 1 Un matt 30 mg 1-24 tablet by ity of tablet 00:00: mouth 2 [place] 00 (two) Medical times Branch daily. SERTraline 0 Yes [id number] 200mg Take 2 Univers 100 mg 1-24 tablets by ity of tablet 00:00: mouth [place] 00 daily. Medical Branch LORazepam 1 0 2021- No [id number] 1mg Take 1 Univers mg tablet 1-24 02-21 tablet by ity of 00:00: 00:00 mouth 3 [place] 00 :00 (three) Medical times Branch daily as needed (anxiety). emtricitabi Yes [id number] Take one Univers ne-tenofovi 1-20 po daily ity of r alafen 00:00: [place] (DESCOVY) 00 Medical tablet Branch raltegravir 0 Yes [id number] 400mg Take 1 Univers (ISENTRESS) 1-12 tablet by ity of 400 mg 00:00: mouth 2 [place] tablet 00 (two) Medical times Branch daily. metoprolol 0 Yes [id number] Take 1 UT tartrate 7-26 tablet Health (Lopressor) 00:00: (100 mg 100 MG 00 total) by tablet mouth 2 (two) times a day AND 0.5 tablets (50 mg total) every night. metoprolol 0 Yes [id number] Take 1 UT tartrate 7-26 tablet Health [...] area in groin) hydrALAZINE 0 Yes 50mg Q.[id number] Take 50 mg Methodi (APRESOLINE 7-[id number] ) 50 MG [...] Hospita tablet 25 daily. l nystatin-tr Yes [id number] Apply to [facility] 11-25 area(s) 3 ity of cream 00:00: (three) [place] 00 times Medical daily. Branch budesonide- 2020- No 1{puff} QD Inhale 1 Methodi formoteroL 25 06-[address] (SYMBICORT) 19:37: 00:00 morning. H ospita 160-4.5 02 :00 l mcg/actuati on inhaler hydrALAZINE Yes [id number] 50mg Q.[id number] Take 1 UT (Apresoline 6-11 [id number] tablet (50 Health ) 50 MG 00:00: 3D mg total) tablet 00 by mouth 3 (three) times a day. hydrALAZINE Yes [id number] 50mg Q.[id number] Take 1 UT (Apresoline 6-11 [id number] tablet (50 Health ) 50 MG 00:00: 3D mg total) tablet 00 by mouth 3 (three) times a day. Breztri Yes UT Aerosphere 10-29 Health 160-9-4.8 00:00: MCG/ACT 00 aerosol Breztri 0 Yes UT Aerosphere 10-29 Health 160-9-4.8 00:00: MCG/ACT 00 aerosol albuterol Yes UT (2.5 6-02 Health MG/3ML) 00:00: 0.083% 00 nebulizer solution albuterol 2021- No UT (2.5 6-02 -22 Health MG/3ML) 00:00: 00:00 0.083% 00 :00 nebulizer solution lisinopril Yes UT 40 MG 5-30 Health tablet 00:00: 00 sertraline Yes 200mg 200 mg. UT (Zoloft) 5-30 Health 100 MG 00:00: tablet 00 lisinopril Yes UT 40 MG 5-30 Health tablet 00:00: 00 sertraline 2021- No 200mg 200 mg. UT (Zoloft) 530 -22 Health 100 MG 00:00: 00:00 tablet 00 :00 mupirocin Yes UT (Bactroban) 528 Health 2 % 00:00: ointment 00 mupirocin Yes UT (Bactroban) 28 Health 2 % 00:00: ointment 00 nystatin 2020- No [id number] Q.25D Take 5 mL Methodi (MYCOSTATIN 10-06 06- (500,000 st ) 100,000 00:00: 04:59 [...] time tablet 00 each day. Eliquis 5 Yes UT MG tablet 5-05 Health 00:00: 00 Eliquis 5 Yes 5mg Q.5D Take 5 mg UT MG tablet 5-05 by mouth 2 Heal th 00:00: (two) 00 times a day. pantoprazol Yes UT e 4-20 Health (ProtoNix) [...] Take 20 mg M ethodi (BUSPAR) 10 -04 25-[address] MG tablet 13:50: 00:00 [...] e 4-10 Tablet l 14:00: should not [place] 00 be chewed or crushed. (Same as: Protonix) Amiodarone No Notes: Memor ia 4-10 (Same as: l 14:00: Cordarone) Marty Amlodipine No Notes: Memor ia 4-10 (Same as: l 14:00: Norvasc) [place] emtricitabi No Notes: Caesar lisa ne 200 MG / 4-10 (Same as: l tenofovir 14:00: Descovy) Herm ariel alafenamide 00 Non-formul 25 MG Oral nancy Tablet [Descovy] Sertraline No Notes: Memor ia 4-10 (Same as: l 14:00: Zoloft) [place] 00 Sertraline No Notes: Memor ia 4-10 (Same as: l 14:00: Zoloft) [place] 00 pantoprazol No Notes: Caesar lisa e 4-10 Tablet l 14:00: should not [place] 00 be chewed or crushed. (Same as: Protonix) Amiodarone No Notes: Memor ia 4-10 (Same as: l 14:00: Cordarone) [place] 00 Amlodipine No Notes: Memor ia 4-10 (Same as: l 14:00: Norvasc) [place] 00 emtricitabi No Notes: Caesar lisa ne 200 MG / 4-10 (Same as: l tenofovir 14:00: Descovy) Herm ariel alafenamide 00 Non-formul 25 MG Oral nancy Tablet [Descovy] Sertraline No Notes: Memor ia 4-10 (Same as: l 14:00: Zoloft) [place] 00 pantoprazol No Notes: Caesar lisa e 4-10 Tablet l 14:00: should not [place] 00 be chewed or crushed. (Same as: Protonix) Amiodarone No Notes: Memor ia 4-10 (Same as: l 14:00: Cordarone) [place] Amlodipine No Notes: Memor ia 4-10 (Same as: l 14:00: Norvasc) [place] emtricitabi No Notes: Caesar lisa ne 200 MG / 4-10 (Same as: l tenofovir 14:00: Descovy) Herm ariel alafenamide 00 Non-formul 25 MG Oral nancy Tablet [Descovy] Sertraline No Notes: Memor ia 4-10 (Same as: l 14:00: Zoloft) [place] 00 pantoprazol No Notes: Caesar lisa e 4-10 Tablet l 14:00: should not [place] 00 be chewed or crushed. (Same as: Protonix) Amiodarone No Notes: Memor ia 4-10 (Same as: l 14:00: Cordarone) [place] Amlodipine No Notes: Memor ia 4-10 (Same as: l 14:00: Norvasc) [place] emtricitabi No Notes: Caesar lisa ne 200 MG / 4-10 (Same as: l tenofovir 14:00: Descovy) Herm ariel alafenamide 00 Non-formul 25 MG Oral nancy Tablet [Descovy] Sertraline No Notes: Memor ia 4-10 (Same as: l 14:00: Zoloft) [place] 00 pantoprazol No Notes: Caesar lisa e 4-10 Tablet l 14:00: should not [place] 00 be chewed or crushed. (Same as: Protonix) Amiodarone No Notes: Memor ia 4-10 (Same as: l 14:00: Cordarone) [place] 00 Amlodipine No Notes: Memor ia 4-10 [...] M emoria 4-10 interfere l 02:00: w/enteral [place] 00 feeds - Take 1 hr before or 2 hr after antacids, dairy pdt, meals & minerals - On empty stomach. For patients unable to swallow tablet, dissolve in 10mL - 30mL of water or juice and stir before giving. (Same As: Carafate) Saline No Notes: Memoria Flush 0.9% 4-10 (Same as: l 02:00: BD [place] 00 Posiflush) Eliquis No Notes: Memoria 4-10 Same as: l 02:00: Eliquis [place] Hydralazine No Notes: Caesar lisa Hydrochlori 4-10 [...] M emoria 4-10 interfere l 02:00: w/enteral [place] 00 feeds - Take 1 hr before [...] Memoria 4-10 Same as: l 02:00: Eliquis [place] Hydralazine No Notes: Caesar lisa Hydrochlori 4-10 (Same as: l de 50 MG 02:00: Apresoline Her mitchell Oral Tablet 00 ) May interfere w/enteral feedings Take With Food Sucralfate No Notes: May M emoria 4-10 interfere l 02:00: w/enteral [place] 00 feeds - Take 1 hr before [...] 0.9% 4-10 (Same as: l 02:00: BD [place] 00 Posiflush) Eliquis No Notes: Memoria 4-10 [...] - (Same As: l 22:00: BuSpar) Lisinopril 0 No 40 mg, 1 Mem oria 4-09 tab, l 22:00: Route: PO, Marty 00 Drug form: TAB, BID, Dosing Weight 97.273, kg, Start date: 08/29/20 17:00:00 CDT, Duration: 30 day, Stop date: 09/28/20 9:00:00 CDT metoprolol No 100 mg, 1 Me moria tartrate - tab, l 22:00: Route: PO, [place] 00 Drug form: TAB, BID, Dosing Weight [...] CDT, 0 Buspirone No Notes: Memori a - (Same As: l 22:00: BuSpar) Lisinopril 0 No 40 mg, 1 Mem oria 4-09 tab, l 22:00: Route: PO, [place] 00 Drug form: TAB, BID, Dosing Weight [...] 1-0 No 40 mg, 1 Mem oria 4- [...] oria 4-09 tab, l 22:00: Route: PO, [place] 00 Drug form: TAB, BID, Dosing Weight [...] tartrate 4-09 tab, l 22:00: Route: PO, [place] Drug form: TAB, BID, Dosing Weight 97.273, [...] tartrate 4-09 tab, l 22:00: Route: PO, [place] 00 Drug form: TAB, BID, Dosing Weight [...] oria 4-09 tab, l 22:00: Route: PO, [place] 00 Drug form: TAB, BID, Dosing Weight [...] Notes: Memoria 4-09 (Same l 17:07: as:MORPhin [place] 00 e Sulfate) Morphine No Notes: Memoria 4-09 (Same l 17:07: as:MORPhin [place] 00 e Sulfate) Morphine No Notes: Memoria 4-09 (Same l 17:07: as:MORPhin [place] 00 e Sulfate) Morphine No Notes: Memoria 4-09 (Same l 17:07: as:MORPhin [place] 00 e Sulfate) Morphine No Notes: Memoria 4-09 (Same l 17:07: as:MORPhin [place] 00 e Sulfate) Morphine No Notes: Memoria 4-09 (Same l 17:07: as:MORPhin [place] 00 e Sulfate) Morphine No Notes: Memoria [...] tab, PO, l oral 15:27: Daily, # [place] enteric 00 30 tab, 0 coated Refill(s), tablet [facility], 162.56, cm, 08/29/20 5:30:00 CDT, Height, 97.273, kg, 08/29/20 5:30:00 CDT, Weight pantoprazol 2021-0 Yes 40 mg = 1 M emoria e 40 mg 4-09 tab, PO, l oral 15:27: Daily, # Marty enteric 00 30 tab, 0 coated Refill(s), tablet Pharmacy: [facility] 149, 162.56, cm, 08/29/20 5:30:00 CDT, Height, 97.273, kg, 08/29/20 5:30:00 CDT, Weight pantoprazol 2021-0 Yes 40 mg = 1 M emoria e 40 mg 4-09 tab, PO, l oral 15:27: Daily, # [place] enteric 00 30 tab, 0 coated Refill(s), tablet Pharmacy: [facility] 149, 162.56, cm, 08/29/20 5:30:00 CDT, Height, 97.273, kg, 08/29/20 5:30:00 CDT, Weight pantoprazol 2021-0 Yes 40 mg = 1 M emoria e 40 mg 4-09 tab, PO, l oral 15:27: Daily, # [place] enteric 00 30 tab, 0 coated Refill(s), tablet Pharmacy: [facility] 149, 162.56, cm, 08/29/20 5:30:00 CDT, Height, 97.273, kg, 08/29/20 5:30:00 CDT, Weight pantoprazol 2021-0 Yes 40 mg = 1 M emoria e 40 mg 4-09 tab, PO, l oral 15:27: Daily, # [place] enteric 00 30 tab, 0 coated Refill(s), tablet Pharmacy: [facility] 149, 162.56, cm, 08/29/20 5:30:00 CDT, Height, 97.273, kg, 08/29/20 5:30:00 CDT, Weight pantoprazol 1-0 Yes 40 mg = 1 M emoria e 40 mg 4-09 tab, PO, l oral 15:27: Daily, # [place] enteric 00 30 tab, 0 coated Refill(s), tablet Pharmacy: [place] [address], 162.56, cm, 08/29/20 5:30:00 CDT, Height, 97.273, kg, 08/29/20 5:30:00 CDT, Weight pantoprazol 1-0 Yes 40 mg = 1 M emoria e 40 mg 4-09 tab, PO, l oral 15:27: Daily, # [place] enteric 00 30 tab, 0 coated Refill(s), tablet Pharmacy: [place] [address], 162.56, cm, 08/29/20 5:30:00 CDT, Height, 97.273, kg, 08/29/20 5:30:00 CDT, Weight pantoprazol 1-0 No 40 mg = 1 M emoria e 40 mg 4-09 tab, PO, l oral 15:26: Daily, # [place] enteric 00 30 tab, 0 coated Refill(s) tablet sucralfate 1-0 Yes 1 gm = 1 Mem oria 1 g oral 4-09 tab, PO, l tablet 15:26: Q12H, # 28 Skylar nn 00 tab, 0 Refill(s), Pharmacy: [place] [address], 162.56, cm, 08/29/20 5:30:00 CDT, Height, 97.273, [...] Skylar nn 00 tab, 0 Refill(s), Pharmacy: [place] [address], 162.56, cm, 08/29/20 5:30:00 CDT, Height, 97.273, [...] Skylar nn 00 tab, 0 Refill(s), Pharmacy: [facility] 149, 162.56, cm, 08/29/20 5:30:00 [...] Skyl[place] nn 00 tab, 0 Refill(s), Pharmacy: [facility] 149, 162.56, cm, 08/29/20 5:30:00 CDT, Height, 97.273, kg, 08/29/20 5:30:00 CDT, Weight pantoprazol 2020-0 No 40 mg = 1 M emoria e 40 mg 4-09 tab, PO, l oral 15:26: Daily, # [place] enteric 00 30 tab, 0 coated Refill(s) tablet sucralfate 2020-0 Yes 1 gm = 1 Mem oria 1 g oral 4-09 tab, PO, l tablet 15:26: Q12H, # 28 [place] nn 00 tab, 0 Refill(s), Pharmacy: [facility] 149, 162.56, cm, 08/29/20 5:30:00 CDT, Height, 97.273, kg, 08/29/20 5:30:00 CDT, Weight pantoprazol 1-0 No 40 mg = 1 M emoria e 40 mg 4-09 tab, PO, l oral 15:26: Daily, # [place] enteric 00 30 tab, 0 coated Refill(s) tablet sucralfate Yes 1 gm = 1 Mem oria 1 g oral 4-09 tab, PO, l tablet 15:26: Q12H, # 28 Sk[place] nn 00 tab, 0 Refill(s), Pharmacy: [facility] 149, 162.56, cm, 08/29/20 5:30:00 CDT, Height, 97.273, kg, 08/29/20 5:30:00 CDT, Weight pantoprazol No 40 mg = 1 M emoria e 40 mg 4-09 tab, PO, l oral 15:26: Daily, # [place] enteric 00 30 tab, 0 coated Refill(s) tablet sucralfate Yes 1 gm = 1 Mem oria 1 g oral 4-09 tab, PO, l tablet 15:26: Q12H, # 28 [place] nn 00 tab, 0 Refill(s), Pharmacy: [facility] 149, 162.56, cm, 08/29/20 5:30:00 [...] a 4-09 (Same as: l 15:25: Ativan) [place] 00 Saline No Notes: Memoria Flush 0.9% 4-09 (Same as: l 15:25: BD Marty Posiflush) Lorazepam No Notes: Memori a 4-09 (Same as: l 15:25: Ativan) [place] 00 Saline No Notes: Memoria Flush 0.9% 4-09 (Same as: l 15:25: BD [place] 00 Posiflush) Lorazepam No Notes: Memori a 4-09 (Same as: l 15:25: Ativan) [place] 00 Saline No Notes: Memoria Flush 0.9% 4-09 (Same as: l 15:25: BD [place] 00 Posiflush) Lorazepam No Notes: Memori a 4-09 (Same as: l 15:25: Ativan) [place] 00 Saline No Notes: Memoria Flush 0.9% 4-09 (Same as: l 15:25: BD [place] 00 Posiflush) Saline No Notes: Memoria Flush 0.9% 4-09 (Same as: l 15:25: BD [place] 00 Posiflush) Lorazepam No Notes: Memori a [...] 9:49:00 CDT heparin 202-0 No Route: IV, Caesra lisa (ANES) 08-29 Drug form: l 14:49: [...] Memori a 08-29 Route: l 14:01: IVP, [place] 00 Q5Min, Dosing Weight 97.273, kg, PRN Elevated BP, Start date: 08/29/20 9:01:00 CDT, Duration: 5 doses or times, Stop date: Limited # of times Acetaminoph No 1,000 mg, M emoria en 08-29 Route: PO, l 14:01: Drug form: [place] 00 TAB, ONCE, Dosing Weight 97.273, kg, PRN Pain Score 1-3, Start date: 08/29/20 9:01:00 CDT Oxycodone 0 No 5 mg, Memoria Hydrochlori 08-29 Route: PO, l de 5 MG 14:01: Drug form: Herm ariel Oral Tablet 00 TAB, Q4H, Dosing Weight 97.273, kg, PRN Pain Score 4-6, Start date: 08/29/20 9:01:00 CDT, Duration: 30 day, Stop date: 09/28/20 9:00:00 CDT Hydromorpho 2021-0 No 0.5 mg, Mem oria ne 08-29 Route: l 14:01: IVP, [place] 00 Q5Min, Dosing Weight 97.273, kg, PRN [...] ia 08-29 Route: l 14:01: IVP, ONCE, [place] 00 Dosing Weight 97.273, kg, PRN Nausea [...] 08-29 Route: PO, l 14:01: Drug form: [place] 00 TAB, ONCE, Dosing Weight 97.273, kg, [...] oria ne 08-29 Route: l 14:01: IVP, [place] 00 Q5Min, Dosing Weight 97.273, kg, PRN Pain Score 7-10, Start date: 08/29/20 9:01:00 CDT, Duration: 4 doses or times, Stop date: Limited # of times Flumazenil 2020-0 No 0.2 mg, Caesar lisa 08-29 Route: l 14:01: IVP, PRN, [place] 00 Dosing Weight 97.273, kg, PRN Benzodiaze pine Reversal, Initial dose, Start date: 08/29/20 9:01:00 CDT, Duration: 30 day, Stop date: 09/28/20 9:00:00 CDT Naloxone 1-0 No 0.4 mg, Memori a 08-29 Route: l 14:01: IVP, [place] 00 Q2MIN, Dosing Weight 97.273, kg, PRN Narcotic Reversal, Start date: 08/29/20 9:01:00 CDT, Duration: 8 doses or times, Stop date: Limited # of times Ondansetron 1-0 No 4 mg, Memor ia 08-29 Route: l 14:01: IVP, ONCE, [place] 00 Dosing Weight 97.273, kg, PRN Nausea [...] oria ne 08-29 Route: l 14:01: IVP, [place] 00 Q5Min, Dosing Weight 97.273, kg, PRN Pain Score 7-10, Start date: 08/29/20 9:01:00 CDT, Duration: 4 doses or times, Stop date: Limited # of times Flumazenil 2020-0 No 0.2 mg, Caesar lisa 08-29 Route: l 14:01: IVP, PRN, [place] 00 Dosing Weight 97.273, kg, PRN Benzodiaze [...] 08-29 Route: PO, l 14:01: Drug form: [place] 00 TAB, ONCE, Dosing Weight 97.273, kg, [...] oria ne 08-29 Route: l 14:01: IVP, [place] 00 Q5Min, Dosing Weight 97.273, kg, PRN Pain Score 7-10, Start date: 08/29/20 9:01:00 CDT, Duration: 4 doses or times, Stop date: Limited # of times Flumazenil 2021-0 No 0.2 mg, Caesar lisa 08-29 Route: l 14:01: IVP, PRN, [place] 00 Dosing Weight 97.273, kg, PRN Benzodiaze pine Reversal, Initial dose, Start date: 08/29/20 9:01:00 CDT, Duration: 30 day, Stop date: 09/28/20 9:00:00 CDT Naloxone 2021-0 No 0.4 mg, Memori a 08-29 Route: l 14:01: IVP, [place] 00 Q2MIN, Dosing Weight 97.273, kg, PRN Narcotic Reversal, Start date: 08/29/20 9:01:00 CDT, Duration: 8 doses or times, Stop date: Limited # of times Flumazenil 2021-0 No 0.2 mg, Caesar lisa 08-29 Route: l 14:01: IVP, PRN, [place] 00 Dosing Weight 97.273, kg, PRN Benzodiaze [...] Memori a 08-29 Route: l 14:01: IVP, [place] 00 Q2MIN, Dosing Weight 97.273, kg, PRN [...] Memori a 08-29 Route: l 14:01: IVP, [place] 00 Q5Min, Dosing Weight 97.273, kg, PRN Elevated BP, Start date: 08/29/20 9:01:00 CDT, Duration: 5 doses or times, Stop date: Limited # of times Acetaminoph 2020-0 No 1,000 mg, M emoria en 08-29 Route: PO, l 14:01: Drug form: [place] 00 TAB, ONCE, Dosing Weight 97.273, kg, [...] Memori a 08-29 Route: l 14:01: IVP, [place] 00 Q5Min, Dosing Weight 97.273, kg, PRN Elevated BP, Start date: 08/29/20 9:01:00 CDT, Duration: 5 doses or times, Stop date: Limited # of times Acetaminoph 1-0 No 1,000 mg, M emoria en 08-29 Route: PO, l 14:01: Drug form: [place] 00 TAB, ONCE, Dosing Weight 97.273, kg, [...] oria ne 08-29 Route: l 14:01: IVP, [place] 00 Q5Min, Dosing Weight 97.273, kg, PRN [...] Memori a 08-29 Route: l 14:01: IVP, [place] 00 Q2MIN, Dosing Weight 97.273, kg, PRN [...] ONCE, Stop date: 08/29/20 8:52:00 CDT rocuronium 1-0 No Route: IV, M emoria (ANES) 08-29 [...] Drug form: l 10 13:15: INJ, Start [place] microgram 00 date: 08/29/20 8:15:00 CDT, Stop date: 08/29/20 9:15:00 CDT norepinephr 2020-0 No Route: IV, Memoria ine (ANES) 08-29 Drug form: l 10 13:15: INJ, Start Marty microgram 00 date: 08/29/20 8:15:00 CDT, Stop date: 08/29/20 9:15:00 CDT norepinephr 2020-0 No Route: IV, Memoria ine (ANES) 08-29 Drug form: l 10 13:15: INJ, Start [place] microgram 00 date: 08/29/20 8:15:00 CDT, Stop [...] Drug form: l 10 13:15: INJ, Start [place] microgram 00 date: 08/29/20 8:15:00 CDT, Stop date: 08/29/20 9:15:00 CDT norepinephr 2020-0 No Route: IV, Memoria ine (ANES) 08-29 Drug form: l 10 13:15: INJ, Start [place] microgram 00 date: 08/29/20 8:15:00 CDT, Stop [...] 4-09 Total l 0.9% IV 12:30: Volume: [place] (ANES) 1000 00 1,000, mL Start date: 08/29/20 7:30:00 CDT, Stop date: 08/29/20 8:30:00 CDT Sodium 2021-0 No Route: IV, Memor ia Chloride 4-09 Total l 0.9% IV 12:30: Volume: [place] (ANES) 1000 00 1,000, mL Start date: 08/29/20 7:30:00 CDT, Stop date: 08/29/20 8:30:00 CDT Sodium 2021-0 No Route: IV, Memor ia Chloride 4-09 Total l 0.9% IV 12:30: Volume: [place] (ANES) 1000 00 1,000, mL Start date: 08/29/20 7:30:00 CDT, Stop date: 08/29/20 8:30:00 CDT Sodium 2021-0 No Route: IV, Memor ia Chloride 4-09 Total l 0.9% IV 12:30: Volume: [place] (ANES) 1000 00 1,000, mL Start date: [...] PO, l Hydrochlori 11:42: Q24H, # 30 [place] de 150 MG 00 tab, 0 Extended Refill(s) Release Tablet 24 HR 0 Yes 150 mg = 1 Memori a Bupropion 4-09 tab, PO, l Hydrochlori 11:42: Q24H, # 30 [place] de 150 MG 00 tab, 0 Extended Refill(s) Release Tablet 24 HR Yes 150 mg = 1 Memori a Bupropion 4-09 tab, PO, l Hydrochlori 11:42: Q24H, # 30 [place] de 150 MG 00 tab, 0 Extended Refill(s) Release Tablet 24 HR 0 Yes 150 mg = 1 Memori a Bupropion 4-09 tab, PO, l Hydrochlori 11:42: Q24H, # 30 [place] de 150 MG 00 tab, 0 Extended Refill(s) Release Tablet 24 HR 0 Yes 150 mg = 1 Memori a Bupropion 4-09 tab, PO, l Hydrochlori 11:42: Q24H, # 30 [place] de 150 MG 00 tab, 0 Extended [...] 4 Q12H, tab, l Tablet 11:41: 0 [place] [Eliquis] 00 Refill(s), For Atrial Fibrilatio n apixaban 2020-0 Yes 5 mg, PO, Me moria MG Oral 4- Q12H, tab, l Tablet 11:41: 0 [place] [Eliquis] 00 Refill(s), For Atrial Fibrilatio n apixaban 2020-0 Yes 5 mg, PO, Me moria MG Oral 4- Q12H, tab, l Tablet 11:41: 0 [place] [Eliquis] 00 Refill(s), For Atrial Fibrilatio n apixaban 2020-0 Yes 5 mg, PO, Me moria MG Oral 4- Q12H, tab, l Tablet 11:41: 0 [place] [Eliquis] 00 Refill(s), For Atrial Fibrilatio n apixaban 2020-0 Yes 5 mg, PO, Me moria MG Oral 4- Q12H, tab, l Tablet 11:41: 0 [place] [Eliquis] 00 Refill(s), For Atrial Fibrilatio n apixaban 5 0 Yes 5 mg, PO, Me moria MG Oral 4-09 Q12H, tab, l Tablet 11:41: 0 [place] [Eliquis] 00 Refill(s), For Atrial Fibrilatio n apixaban 5 0 Yes 5 mg, PO, Me moria MG Oral 4-09 Q12H, tab, l Tablet 11:41: 0 [place] [Eliquis] 00 Refill(s), For Atrial Fibrilatio n AMIODarone Yes 200 mg = 1 M emoria 200 mg oral 4-09 tab, PO, l tablet 11:38: Daily, # [place] 00 90 tab, 3 Refill(s) AMIODarone Yes 200 mg = 1 M emoria 200 mg oral 4-09 tab, PO, l tablet 11:38: Daily, # [place] 00 90 tab, 3 Refill(s) AMIODarone Yes 200 mg = 1 M emoria 200 mg oral 4-09 tab, PO, l tablet 11:38: Daily, # [place] 00 90 tab, 3 Refill(s) AMIODarone 0 Yes 200 mg = 1 M emoria 200 mg oral 4-09 tab, PO, l tablet 11:38: Daily, # [place] 00 90 tab, 3 Refill(s) AMIODarone Yes 200 mg = 1 M emoria 200 mg oral 4-09 tab, PO, l tablet 11:38: Daily, # [place] 00 90 tab, 3 Refill(s) AMIODarone Yes 200 mg = 1 M emoria 200 mg oral 4-09 tab, PO, l tablet 11:38: Daily, # [place] 00 90 tab, 3 Refill(s) AMIODarone 0 [...] it y of mg tablet 08:18: (two) [place] 30 times Medical daily. Branch amiodarone Yes [...] awake for 30 days. budesonide 2019-05- No [id number] .5mg Q.5D Take 2 mL [facility] (PULMICORT) [...] day for 30 days. acetaminoph 2019-05- No [id number] 1{tbl} Q6H Take 1 [facility] en-codeine 07-04 [...] tablet ARIPiprazol 2019-05 5mg Take 5 mg Method[facility] e (ABILIFY) [...] triamterene Yes 1{each} 1 each. [facility] -[facility] Othiazide 00:00: (Dyazide) 00 37.5-25 MG capsule triamterene Yes 1{each} 1 each. [facility] -hydroCHLOR - [...] Immunizations Ordered Filled Immunization Date Status Comments [facility] e Immunization Name Name PEG COVID-19 2020-07-23 Completed [facility] MRNA VACCINATION 00:00:00 [facility] PFIZER COVID-19 2020-07-02 Completed [facility] MRNA VACCINATION 00:00:00 [facility] Influenza Virus 2017-03-08 Completed Universit y of Vaccine 00:00:00 [facility] Influenza Virus 2014-01-30 Completed Universit y of Vaccine (3+ yrs) 00:00:00 [facility] dical Branch Pneumococcal 13 2014-01-30 Completed Universit y of Conjugate, PCV13 00:00:00 [facility] dical (Prevnar 13) Branch Pneumococcal 2012-02-16 Completed University o f Polysaccharide, 00:00:00 [place] [facility] ical PPSV23 (PNEUMOVAX) Branch Influenza Virus 2012-02-16 Completed Universit y of Vaccine 00:00:00 [facility] PPD (TB) 2012-02-16 Completed University of 00:00:00 [facility] Hep B, Adol or Pedi 2011-09-01 Completed Unive rsity of Dosage 00:00:00 [facility] Hep B, Adol or Pedi 2011-03-17 Completed Unive rsity of Dosage 00:00:00 [facility] Influenza Virus 2011-02-10 Completed Universit y of Vaccine 00:00:00 [facility] Hep B, Adol or Pedi 2011-02-10 Completed Unive rsity of Dosage 00:00:00 [facility] PPD (TB) 2010-11-18 Completed University of 00:00:00 [facility] TDAP (ADACEL) 2010-11-18 Completed University of VACCINE 00:00:00 [facility] HEPATITIS A 2004-03-02 Completed University of 00:00:00 [facility] HEPATITIS A 2003-08-01 Completed University of 00:00:00 [facility] Pneumococcal 2001-10-04 Completed University o f Polysaccharide, 00:00:00 [place] [facility] ical PPSV23 (PNEUMOVAX) Branch PPD (TB) 2001-10-04 Completed University of 00:00:00 [facility] Vital Signs Vital Name Observation Time Observation Value Comments Source Systolic blood 2021-07-14 142 mm[Hg] [facility] pressure 15:18:00 Diastolic blood 2021-07-14 76 mm[Hg] [facility] pressure 15:18:00 Heart rate 2021-07-14 61 /min [facility] 15:18:00 Body height 2021-07-14 162.6 cm [facility] 15:18:00 Body weight 2021-07-14 94.802 kg [facility] 15:18:00 BMI 2021-07-14 35.87 kg/m2 [facility] 15:18:00 Systolic blood 2021-06-15 175 mm[Hg] University of pressure 16:23:00 [facility] Diastolic blood 2021-06-15 104 mm[Hg] University o f pressure 16:23:00 [facility] Respiratory rate 2021-06-15 18 /min University 16:18:00 [facility] Body height 2021-06-15 162.6 cm University 16:18:00 [facility] Body weight 2021-06-15 95.709 kg University 16:18:00 [facility] BMI 2021-06-15 36.22 kg/m2 [facility] 16:18:00 [facility] Oxygen saturation 2021-06-15 92 /min Didn't bring O2 Univers ity of in Arterial blood 16:18:00 machine with [facility] by Pulse oximetry [facility] Branch Heart rate 2021-01-28 56 /min [facility] 14:08:00 [facility] Systolic blood 2020-12-08 125 mm[Hg] [facility] pressure 15:48:00 [facility] Diastolic blood 2020-12-08 76 mm[Hg] [facility] pressure 15:48:00 Hospital Heart rate 2020-12-08 64 /min [facility] 15:48:00 Hospital Body temperature 2020-12-08 36.61 Amina [facility] 15:48:00 Hospital Respiratory rate 2020-12-08 17 /min [facility] 15:48:00 Hospital Body height 2020-12-08 162.6 cm [facility] 15:48:00 Hospital Body weight 2020-12-08 98.884 kg [facility] 15:48:00 Hospital BMI 2020-12-08 37.42 kg/m2 [facility] 15:48:00 Hospital Oxygen saturation 2020-12-08 97 /min [facility] in Arterial blood 15:48:00 Hospital by Pulse oximetry Body temperature 2020-12-02 36.83 Amina University 14:14:00 [facility] Respitory Rate 2020-08-30 [facility] ariel 13:00:00 Systolic (mm Hg) 2020-08-30 [facility] rmann 13:00:00 Diastolic (mm Hg) 2020-08-30 [facility] ermann 13:00:00 Systolic (mm Hg) 2020-08-30 [facility] rmann 11:00:00 Diastolic (mm Hg) 2020-08-30 [facility] ermann 11:00:00 Temperature Oral 2020-08-30 98.4 F [facility] rmann (F) 11:00:00 Respitory Rate 2020-08-30 [facility] 11:00:00 Respitory Rate 2020-08-30 [facility] ariel 10:00:00 Systolic (mm Hg) 2020-08-30 [facility] rmann 10:00:00 Diastolic (mm Hg) 2020-08-30 [facility] ermann 10:00:00 Temperature Oral 2020-08-30 96.9 F [facility] rmann (F) 00:00:00 Temperature Oral 2020-08-29 97.6 F [facility] rmann (F) 11:26:00 Height 2020-08-29 162.56 cm [facility] 10:30:00 Weight 2020-08-29 [facility] 10:30:00 BMI Calculated 2020-08-29 [facility] ariel 10:30:00 Procedures Procedure Date / Time Performing Source Performed Clinician ECG 12-LEAD 2021-07-14 [facility] 15:14:00 Alianishaa [id number] 2021-06-17 RASSA [facility] 00:00:00 [facility] [place] CONSENT/REFUSAL FOR DIAGNOSIS AND 2021-06-15 Doctor [facility] 16:11:59 Unassigned, No [facility] ASSIGNMENT OF BENEFITS 2021-06-15 Doctor [facility] y of 16:11:40 Unassigned, No [facility] GASTROINTESTINAL PANEL 2020-12-08 Eliseo Arce 22:21:00 [...] 16:27:00 Hospital PARTIAL THROMBOPLASTIN TIME (PTT) 2020-09-05 Jignesh Maharajist 15:04:00 [facility] PROTHROMBIN TIME WITH INR 2020-09-05 Jignesh Maharaj ist 15:04:00 [facility] HC COMPLETE BLD COUNT W/AUTO DIFF 2020-09-01 Paula Ramiro Jean 15:45:00 [facility] PROTHROMBIN TIME WITH INR 2020-09-01 Paula Ramiro Egan ist 15:45:00 Hospital PARTIAL THROMBOPLASTIN TIME (PTT) 2020-09-01 PaulaRamiro 15:45:00 [facility] ECG 12-LEAD 2020-09-01 Paula Ramiro Jean 15:31:26 [facility] COVID-19 QUALITATIVE RT-PCR 2020-09-01 Ramiro Mitchell Curt Haider odist 15:24:00 [facility] COMPREHENSIVE METABOLIC PANEL 2020-09-01 Ramiro Mitchell Curt Young thodist 15:23:00 Hospital ESTIMATED GFR 2020-09-01 Ramiro Mitchell 15:23:00 Hospital NM GASTRIC EMPTYING 2020-08-27 Eliseo Arce 19:05:[address] [facility] [address] CHEST WO CONTRAST ABDOMEN WO 2020-08-21 Eliseo Arce CONTRAST 15:20:00 [facility] FL ESOPHAGRAM SINGLE CONTRAST 2020-08-13 Eliseo Arce thodist 15:25:00 [facility] [id number] 2020-05-07 Ted Engel 00:00:00 [facility] BASIC METABOLIC PANEL 2020-05-02 Pau Ott 15:08:00 Hospital HC COMPLETE BLD COUNT W/AUTO DIFF 2020-05-02 Pau Ott 15:08:00 Hospital MAGNESIUM LEVEL 2020-05-02 Pau Ott 15:08:00 Hospital ESTIMATED GFR 2020-05-02 Eliseo Arceist [...] PORTABLE 2020-04-[address] 15:45:00 [facility] ECG 12-LEAD 2020-04-30 Pau Ott 15:06:58 Hospital ND AN ELECTIVE ENDOTRACHEAL AIRWAY 2020-04-28 Carlee Malloy grady [facility] 20:57:57 [facility] REPAIR, HIATAL HERNIA, 2020-04-28 Eliseo Arce LAPAROSCOPIC, ROBOT-ASSISTED 19:38:00 [facility] pital ESOPHAGOGASTRODUODENOSCOPY (EGD) 2020-04-28 Eliseo Arce 19:38:00 Hospital POC GLUCOSE 2020-04-28 Eliseo Arce 15:01:00 [facility] SURGICAL PATHOLOGY REQUEST 2020-04-28 Eliseo Arce Metho dist 14:27:00 [facility] BASIC METABOLIC PANEL 2020-04-28 Ted Gonzalez 08:11:00 [facility] HC COMPLETE BLD COUNT W/AUTO DIFF 2020-04-28 Ted Gonzalez 08:11:00 [facility] MAGNESIUM LEVEL 2020-04-28 Ted Gonzalez 08:11:00 [facility] PHOSPHORUS LEVEL 2020-04-28 Ted Gonzalez 08:11:00 [facility] PROTHROMBIN TIME WITH INR 2020-04-28 Jignesh Gonzalez ist 08:11:00 [facility] PARTIAL THROMBOPLASTIN TIME (PTT) 2020-04-28 Ted Gonzalez 08:11:00 [facility] ESTIMATED GFR 2020-04-28 Eliseo Arce 08:11:00 Hospital TYPE AND SCREEN 2020-04-28 Eliseo Arce 08:11:00 Hospital POC GLUCOSE 2020-04-28 Chihara, Ray [facility] 05:38:00 Hospital POC GLUCOSE 2020-04-28 Eliseo Arce [facility] 02:14:00 Hospital TTE COMPLETE, WO CONTRAST, W 2020-04-27 BarrettQuentinNieves EnocChelsie Tx thodist DOPPLER ([id number]) 21:00:00 Hospital POC GLUCOSE 2020-04-27 Eliseo Arce [facility] 18:30:00 Hospital BASIC METABOLIC PANEL 2020-04-27 Eliseo Arce [facility] 12:34:00 Hospital ESTIMATED GFR 2020-04-27 Eliseo Arce [facility] 12:34:00 Hospital POC GLUCOSE 2020-04-27 Eliseo Arce [facility] 03:18:00 Hospital ECG 12-LEAD 2020-04-27 Elizabeth Hydecharlie Castro [facility] 02:24:31 Hospital COVID-19 QUALITATIVE RT-PCR 2020-04-26 Vitaly Gonzalez odist 21:44:00 [facility] HC COMPLETE BLD COUNT W/AUTO DIFF 2020-04-26 Carlos Rast[facility]arian 09:05:00 [facility] BASIC METABOLIC PANEL 2020-04-26 Carlos Rast[facility]arian 09:05:00 [facility] MAGNESIUM LEVEL 2020-04-26 Amirhardy, Rastafarian 09:05:00 [facility] PHOSPHORUS LEVEL 2020-04-26 Carlos, [facility]ast[facility]arian 09:05:00 [facility] CD 4 SUBSET 2020-04-26 Eliseo Arce [facility] 09:05:00 Hospital ESTIMATED GFR 2020-04-26 Eliseo Arce 09:05:00 Hospital MISCELLANEOUS REFERRAL TEST 2020-04-26 Eliseo Arce Meth odist 09:05:00 Hospital POTASSIUM LEVEL 2020-04-26 Eliseo Arce [facility] 03:04:00 Hospital HC COMPLETE BLD COUNT W/AUTO DIFF 2020-04-26 Amirashmi Rast[facility]arian 00:51:00 [facility] BASIC METABOLIC PANEL 2020-04-26 Amirashmi Rastafarian 00:51:00 [facility] MAGNESIUM LEVEL 2020-04-26 Amirkhosravi, Rastafarian 00:51:00 [facility] PHOSPHORUS LEVEL 2020-04-26 Amirhardy, Rastafarian 00:51:00 [facility] ESTIMATED GFR 2020-04-26 Eliseo Arce [facility] 00:51:00 Hospital FL ESOPHAGRAM DOUBLE CONTRAST 2020-04-25 Eliseo Arce Tx thodist 17:31:[address] CHEST WO CONTRAST ABDOMEN WO 2020-04-21, Yen-Gee Rastafarian CONTRAST PELVIS WO CONTRAST 14:15:34 [facility] ital HC COMPLETE BLD COUNT W/AUTO DIFF 2020-04-21, Yen-Te Rast[facility]arian 13:22:00 [facility] COMPREHENSIVE METABOLIC PANEL 2020-04-21, Yen-Te Me thodist 13:22:00 [facility] LIPASE LEVEL 2020-04-21, Yen-Te [facility]ast[facility]arian 13:22:00 [facility] LACTIC ACID LEVEL, SEPSIS - NOW 2020-04-21, Yen-Te Rastafarian AND REPEAT 2X EVERY 3 HOURS 13:22:00 [facility] ital ESTIMATED GFR 2020-04-21, Yen-Te [facility]ast[facility]arian 13:22:00 [facility] Plan of Care Planned Activity Planned Date Details Comments Source Future Scheduled Test DIABETES: RETINAL EYE [facility] EXAM [code = DIABETES: RETINAL EYE EXAM] Future Scheduled Test DIABETIC FOOT EXAM [facility] [code = DIABETIC FOOT EXAM] Future Scheduled Test Screening for malignant [facility] neoplasm of cervix (procedure) [code = 386015676] Future Scheduled Test BREAST CANCER SCREENING [facility] [code = BREAST CANCER SCREENING] Future Scheduled Test COLONOSCOPY SCREENING [facility] [code = COLONOSCOPY SCREENING] Future Scheduled Test SHINGLES VACCINES (#1) [facility] [code = SHINGLES VACCINES (#1)] Future Scheduled Test COVID-19 VACCINE (3 - [facility] Pfizer risk 3-dose series) [code = COVID-19 VACCINE (3 - Pfizer risk 3-dose series)] Future Scheduled Test INFLUENZA VACCINE [code [facility] = INFLUENZA VACCINE] Future Scheduled Test 65+ PNEUMOCOCCAL [facility] VACCINE (4 of 4) [code = 65+ PNEUMOCOCCAL VACCINE (4 of 4)] Encounters Start End Encounter Admission Attending Care Care Encounter Source Date/Time Date/Time Type Type Clinicians Facility Department ID 2021-08-03 Inpatient WINTER Lund OUTD [id number] [facility] 11:30:00 Mike [id number] [facility] 2021-07-14 Outpatient [facility] [id number] [place] [facility]-16 Inpatient RAUL Lund, HCACL OUTD [id number] [facility] 08:30:00 Mike [id number] [facility] 2021-06-15 Inpatient RAUL Lund, HCACL OUTD [id number] [facility] 10:30:00 Mike [id number] [facility] 2021-08-21 2021-08-21 [facility] [id number] Univers 08:30:00 08:30:00 SANTIAGO [id number] [facility] 2021-08-11 2021-08-11 Outpatient R [facility] [id number] Univers 08:00:00 08:00:00 SANTIAGO [id number] [facility] 2021-08-11 2021-08-11 [facility] [id number] Univers 08:00[facility]00 [facility]-08[facility]05 2021-08-05 Outpatient RAUL Lund, HCACL HCACL [id number] [facility] 05:24:00 05:24:00 Mike 31 [facility] 2021-08-05 2021-08-05 Outpatient RAUL Lund, HCACL OUTD [id number] [facility] 05:24:00 05:24:00 Mike [id number] [facility] 2021-07-14 2021-07-14 Office Pankaj, UTP 6400 1.2.840.114 [id number] [place] 08:45:00 09:34:[address] 350.1.13.58 Health 9.2.7.2.686 [id number] 1 2021-07-09 2021-07-09 Telephone Ap, UTP 6400 1.2.840.114 [id number] [place] 00:00:00 00:00:[address] 350.1.13.58 Health 9.2.7.2.686 [id number] 1 2021-06-17 2021-06-17 Inpatient RAUL Lund, HCACL INTE.02 [id number] [facility] 10:56:00 14:36:00 Mike [id number] [facility] 2021-06-17 2021-06-17 Inpatient RAUL Lund, EDUARDOCL INTE.02 [id number] [facility] 10:56:00 14:36:00 Mike 47 [facility] 2021-06-15 2021-06-15 Orders Doctor 1.2.840.5 [id number] Univers 00:00:00 00:00:00 Only Unassigned, 15560.1.1 ity of [place] 3.104.2.7 [place] .3.141882 Medica l .8 Branch 2021-06-15 2021-06-15 Travel 1.2.840.1 1.2.904.732 [id number] Univers 00:00:00 00:00:00 97503.1.1 350.1.13.10 ity of 3.104.2.7 4[place].7.3.698 [place] .3.707641 084.8 Medica l .8 Branch 2021-06-11 2021-06-11 Refill [place], 1.2.840.1 [id number] Univers 00:00:00 00:00:00 [place] 04241.1.1 ity of 3.104.2.7 [place] .3.001557 Medica l .8 Branch 2021-06-02 2021-06-02 Telephone [place], 1.2.840.2 [id number] Univers 00:00:00 00:00:00 [place] 66754.1.1 ity of 3.104.2.7 [place] .3.138455 Medica l .8 Branch 2021-05-29 2021-05-29 Telephone [place], 1.2.840.0 [id number] Univers 00:00:00 00:00:00 [place] 91003.1.1 ity of 3.104.2.7 [place] .3.322241 Medica l .8 Branch 2021-01-19 2021-01-19 Telephone [place], 1.2.840.1 [id number] [id number] Methodi 00:00:00 00:00:[address] 3.430.2.7 Hospit a .3.439322 l .8 2020-12-12 2020-12-12 Office Maryjaenray, [facility] 6400 1.2.840.114 [id number] 07:42:02 08:18:[address] 350.1.13.58 9.2.7.2.686 [id number] 1 2020-12-09 2020-12-09 Telephone [facility], 1.2.840.1 [id number] Methodi 00:00:00 00:00:00 Sarai Lieberman 87687.1.1 316 s t 3.430.2.7 Hospit a .3.334908 l .8 2020-12-08 2020-12-08 [facility], 1.2.840.1 [id number] 2100 [id number] Methodi 12:35:54 23:59:00 Encounter Ray 47796.1.[address] 3.430.2.7 Hospit a .3.508797 l .8 2020-12-08 2020-12-08 [facility], 1.2.840.1 [id number] Methodi 17:20:50 17:25:[address] 3.430.2.7 Hospit a .3.710456 l .8 2020-12-08 2020-12-08 Office [facility], 1.2.840.1 [id number] Methodi 09:55:34 11:39:56 Visit Ray 39557.1.[address] 3.430.2.7 Hospit a .3.234784 l .8 2020-12-08 2020-12-08 Travel 1.2.840.1 1.2.712.405 [id number] Methodi 00:00:00 00:00:[address] 3.430.2.7 0.2.7.3.698 spita .3.892468 084.8 l .8 2020-12-02 2020-12-02 Edge [facility] 1.2.840.114 [id number] 10:20:06 10:36:19 Visit HEALTH 350.1.13.10 CLINICS 4.2.7.2.686 [id number] 316 2020-11-25 2020-11-25 Office [facility] 1.2.840.114 [id number] 11:06:30 11:58:14 Visit Amarilisnda R FLIGHT OPERATION COORDINATOR 350.1.13.10 REGIONAL 4.2.7.2.686 MATERNAL [id number] & CHILD 107 [facility] 2020-11-25 2020-11-25 [facility] 1.2.582.132 [id number] 00:00:00 00:00:00 [facility] 350.1.13.10 [facility] 4.2.7.2.686 [id number] 089 2020-11-25 2020-11-25 Telephone [facility] 1.2.151.892 [id number] 00:00:00 00:00:00 [facility] FLIGHT OPERATION COORDINATOR 350.1.13.10 REGIONAL 4.2.7.2.686 MATERNAL [id number] & CHILD 107 [facility] 2020-11-14 2020-11-14 Abstract Rodas, 1.2.840.1 [id number] Methodi 00:00:00 00:00:[address] 3.430.2.7 Hospit a .3.443162 l .8 2020-11-14 2020-11-14 Telephone Rodas, 1.2.840.1 [id number] 2100 [id number] Methodi 00:00:00 00:00:[address] 3.430.2.7 Hospit a .3.377113 l .8 2020-11-07 2020-11-07 Telephone KIMBERLEY Ortiz 640 1.2.840.114 [id number] 00:00:00 00:00:[address] 350.1.13.58 9.2.7.2.686 [id number] 1 2020-10-27 2020-10-27 Telephone Yazmin, 1.2.840.6 [id number] Methodi 00:00:00 00:00:[address] 3.430.2.7 Hospit a .3.311646 l .8 2020-10-24 2020-10-24 Telephone Clark, 1.2.840.1 [id number] [id number] Methodi 00:00:00 00:00:[address] 3.430.2.7 Hospit a .3.737700 l .8 2020-10-06 2020-10-12 Telemedici Yazmin, 1.2.840.1 [id number] Methodi 15:26:54 00:08:46 ne Ray 49814.1.[address] 3.430.2.7 Hospit a .3.374342 l .8 2020-09-30 2020-09-30 Telephone Yazmin, 1.2.840.9 [id number] Methodi 00:00:00 00:00:[address] 3.430.2.7 Hospit a .3.914720 l .8 2020-09-21 2020-09-21 Travel 1.2.840.1 1.2.625.385 0255 [id number] Methodi 00:00:00 00:00:[address] 3.430.2.7 0.2.7.3.698 Ho spita .3.145240 084.8 l .8 2020-09-01 2020-09-09 Lab Paula, Min 1.2.840.1 [id number] Methodi 10:13:59 01:05:[address] 3.430.2.7 Hospit a .3.403778 l .8 2020-09-06 2020-09-06 Hospital 1.2.840.1 [id number] Methodi 17:42:30 23:59:[address] 3.430.2.7 Hospit a .3.880639 l .8 2020-09-06 2020-09-06 [facility], 1.2.840.1 [id number] 2099 [id number] Methodi 16:50:00 17:41:00 Encounter Ray [address]3810.1.[address] 3.430.2.7 Hospit a .3.396460 l .8 2020-09-05 2020-09-05 [facility], 1.2.840.1 [id number] [id number] Methodi 09:17:00 19:45:00 Encounter Ray [address]159.1.[address] 3.430.2.7 Hospit a .3.962010 l .8 2020-09-05 2020-09-05 [facility], 1.2.840.1 [id number] Methodi 11:30:00 13:15:[address] 3.430.2.7 Hospit a .3.625512 l .8 2020-09-05 2020-09-05 Anesthesia Remigio, 1.2.840.1 [id number] Methodi 11:27:00 12:20:00 Event Lynnettevalentinarobbie 31827.1.1 243 s t V. 3.430.2.7 Hospit a .3.311592 l .8 2020-09-05 2020-09-05 Travel 1.2.840.1 1.2.509.063 [id number] Methodi 00:00:00 00:00:[address] 3.430.2.7 0.2.7.3.698 Ho spita .3.357070 084.8 l .8 2020-09-04 2020-09-04 Telephone Carol Ann, 1.2.840.1 [id number] Methodi 00:00:00 00:00:00 Sarai M. 27335.1.1 762 s t 3.430.2.7 Hospit a .3.869429 l .8 2020-09-02 2020-09-02 Telephone Carol Ann, 1.2.840.1 [id number] Methodi 00:00:00 00:00:00 Sarai Lieberman 93324.1.1 344 s t 3.430.2.7 Hospit a .3.446110 l .8 2020-09-01 2020-09-01 [facility] 1.2.840.1 [id number] Methodi 08:42:53 09:50:51 Visit Ray 35417.1.[address] 3.430.2.7 Hospit a .3.358630 l .8 2020-09-01 2020-09-01 Telephone Yazmin, 1.2.840.7 [id number] Methodi 00:00:00 00:00:[address] 3.430.2.7 Hospit a .3.458403 l .8 2020-09-01 2020-09-01 Travel 1.2.840.1 1.2.062.566 4908 [id number] Methodi 00:00:00 00:00:[address] 3.430.2.7 0.2.7.3.698 Ho spita .3.564134 084.8 l .8 2020-08-29 2020-08-30 Bedded [facility] [id number] [facility] 10:20:00 14:10:00 Outpatient r [place] 00 l [facility] 2020-08-29 2020-08-30 Outpatient [facility], [facility] CAR 7500 [facility] 05:20:00 09:10:00 [place] 2020-08-27 2020-08-27 [facility], 1.2.840.1 [id number] [id number] Methodi 09:55:15 23:59:00 Encounter Ray [address]91.1.[address] 3.430.2.7 Hospit a .3.470100 l .8 2020-08-27 2020-08-27 Travel 1.2.840.1 1.2.926.586 8665 151442 Methodi 00:00:00 00:00:[address] 3.430.2.7 0.2.7.3.698 Ho spita .3.740013 084.8 l .8 2020-08-21 2020-08-21 Travel 1.2.840.1 1.2.277.625 4321 136690 Methodi 00:00:00 00:00:[address] 3.430.2.7 0.2.7.3.698 Ho spita .3.530272 084.8 l .8 2020-08-19 2020-08-19 Telephone Meli, 1.2.840.1 [id number] [id number] Methodi 00:00:00 00:00:[address] 3.430.2.7 Hospit a .3.994477 l .8 2020-08-19 2020-08-19 Travel 1.2.840.1 1.2.426.750 8012 851225 Methodi 00:00:00 00:00:[address] 3.430.2.7 0.2.7.3.698 Ho spita .3.864214 084.8 l .8 2020-08-18 2020-08-18 [facility] Carol Ann, 1.2.840.8 [id number] 2 [id number] Methodi 00:00:00 00:00:00 Only Sarai Lieberman 62322.1.1 [address] 3.430.2.7 Hospit a .3.310421 l .8 2020-08-18 2020-08-18 Travel 1.2.840.1 1.2.370.932 5983 171783 Methodi 00:00:00 00:00:[address] 3.430.2.7 0.2.7.3.698 Ho spita .3.533817 084.8 l .8 2020-08-15 2020-08-15 Abstract Rodas, 1.2.840.1 [id number] Methodi 00:00:00 00:00:[address] 3.430.2.7 Hospit a .3.054578 l .8 2020-07-02 2020-08-06 Clinical 1.2.840.1 [id number] 04013 Methodi 10:40:46 01:45:[address] 3.430.2.7 Hospit a .3.634823 l .8 2020-07-30 2020-07-30 Travel 1.2.840.1 1.2.508.763 4847 638496 Methodi 00:00:00 00:00:[address] 3.430.2.7 0.2.7.3.698 Ho spita .3.976273 084.8 l .8 2020-07-28 2020-07-28 Office [facility], 1.2.840.1 [id number] 57222 39868 Methodi 08:35:45 10:11:52 Visit Ray 28640.1.[address] 3.430.2.7 Hospit a .3.770436 l .8 2020-07-28 2020-07-28 Telephone Rodas, 1.2.840.1 [id number] 2099 388582 Methodi 00:00:00 00:00:[address] 3.430.2.7 Hospit a .3.437489 l .8 2020-07-28 2020-07-28 Travel 1.2.840.1 1.2.798.606 0810 752853 Methodi 00:00:00 00:00:[address] 3.430.2.7 0.2.7.3.698 Ho spita .3.237955 084.8 l .8 2020-07-25 2020-07-25 Telephone Carol Ann, 1.2.840.1 [id number] Methodi 00:00:00 00:00:00 Sarai Lieberman 03429.1.1 314 s t 3.430.2.7 Hospit a .3.573170 l .8 2020-07-25 2020-07-25 Travel 1.2.840.1 1.2.487.776 2079 329859 Methodi 00:00:00 00:00:[address] 3.430.2.7 0.2.7.3.698 Ho spita .3.523097 084.8 l .8 2020-07-23 2020-07-23 Clinical Tori, 1.2.840.1 [id number] 73039 80176 Methodi 08:39:40 08:44:40 Support Hoang 42645.1.[address] P. 3.430.2.7 Hospit a .3.493206 l .8 2020-07-23 2020-07-23 Travel 1.2.840.1 1.2.101.843 5723 437907 Methodi 00:00:00 00:00:[address] 3.430.2.7 0.2.7.3.698 Ho spita .3.425073 084.8 l .8 2020-07-11 2020-07-11 Travel 1.2.840.1 1.2.727.558 1021 303522 Methodi 00:00:00 00:00:[address] 3.430.2.7 0.2.7.3.698 Ho spita .3.541541 084.8 l .8 2020-07-02 2020-07-02 Telephone Yazmin, 1.2.840.2 [id number] Methodi 00:00:00 00:00:[address] 3.430.2.7 Hospit a .3.129155 l .8 2020-07-02 2020-07-02 Travel 1.2.840.1 1.2.641.598 8346 386590 Methodi 00:00:00 00:00:[address] 3.430.2.7 0.2.7.3.698 Ho spita .3.219313 084.8 l .8 2020-06-23 2020-06-23 Office Chirichelle, 1.2.840.1 [id number] 38653 26751 Methodi 09:36:17 11:00:44 Visit Ray 17012.1.[address] 3.430.2.7 Hospit a .3.075551 l .8 2020-06-23 2020-06-23 Telephone Rodas, 1.2.840.1 [id number] 2099 545161 Methodi 00:00:00 00:00:[address] 3.430.2.7 Hospit a .3.322301 l .8 2020-06-23 2020-06-23 Travel 1.2.840.1 1.2.946.913 1799 813759 Methodi 00:00:00 00:00:[address] 3.430.2.7 0.2.7.3.698 Ho spita .3.336873 084.8 l .8 2020-06-09 2020-06-09 Telephone Yazmin, 1.2.840.3 [id number] 21 [id number] Methodi 00:00:00 00:00:[address] 3.430.2.7 Hospit a .3.543366 l .8 2020-06-06 2020-06-06 Refill Ball, 1.2.840.1 [id number] 106584 1386 Methodi 00:00:00 00:00:00 Eh Lemus 26062.1.[address] 3.430.2.7 Hospit a .3.251003 l .8 2020-06-03 2020-06-03 Telephone Yazmin, 1.2.840.3 [id number] 20297019 Methodi 00:00:00 00:00:[address] 3.430.2.7 Hospit a .3.328447 l .8 2020-06-02 2020-06-02 [facility].2.840.[facility] [id number] Methodi 00:00:00 00:00:[address] 3.430.2.7 Hospit a .3.879532 l .8 2020-05-13 2020-05-13 Orders Located Within [facility], 1.2.840.1 [id number] 2099 600766 Methodi 00:00:00 00:00:00 Only Historical 59410.1.1 108 s t 3.430.2.7 Hospit a .3.717597 l .8 2020-05-09 2020-05-09 Telephone [facility], 1.2.840.1 [id number] Methodi 00:00:00 00:00:00 Sarai CorbinChelsie 12324.1.1 660 s t 3.430.2.7 Hospit a .3.366400 l .8 2020-05-09 2020-05-09 Telephone [facility], 1.2.840.7 [id number] Methodi 00:00:00 00:00:[address] 3.430.2.7 Hospit a .3.011378 l .8 2020-05-08 2020-05-08 Telephone [facility], 1.2.840.4 [id number] Methodi 00:00:00 00:00:[address] 3.430.2.7 Hospit a .3.373384 l .8 2020-05-07 2020-05-07 Telephone [facility], 1.2.840.4 [id number] Methodi 00:00:00 00:00:[address] 3.430.2.7 Hospit a .3.393615 l .8 2020-05-05 2020-05-05 [facility], 1.2.840.3 [id number] 21 [id number] Methodi 00:00:00 00:00:[address] 3.430.2.7 Hospit a .3.232870 l .8 2020-04-25 2020-05-03 [facility], 1.2.840.1 [id number] 2099 790220 Methodi 17:33:00 13:39:00 Encounter Ray 41449.1.[address] 3.430.2.7 Hospit a .3.938833 l .8 2020-04-28 2020-04-28 Anesthesia ArabellateresitaTomas mendez 1.2.840.1 [id number] Methodi 13:38:00 19:40:00 Event Justine Catalan 22613.1.[address] 3.430.2.7 Hospit a .3.926241 l .8 2020-04-28 2020-04-28 [facility], 1.2.840.1 [id number] 95522 24518 Methodi 13:00:00 17:10:[address] 3.430.2.7 Hospit a .3.365291 l .8 2020-04-25 2020-04-25 [facility], 1.2.840.1 [id number] 2100 863969 Methodi 10:00:00 17:32:00 Encounter Ray [address]64.1.[address] 3.430.2.7 Hospit a .3.682616 l .8 2020-04-25 2020-04-25 [facility], 1.2.840.1 [id number] 71587 31431 Methodi 11:43:50 13:44:26 Visit Ray 91972.1.[address] 3.430.2.7 Hospit a .3.672137 l .8 2020-04-25 2020-04-25 Travel 1.2.840.1 1.2.543.685 7409 443199 Methodi 00:00:00 00:00:[address] 3.430.2.7 0.2.7.3.698 Ho spita .3.828806 084.8 l .8 2020-04-24 2020-04-24 Prep for [place]isen[place], 1.2.840.1 [id number] 2 [id number] Methodi 00:00:00 00:00:00 Surgery Sarai Lieberman 42015.1.1 524 s t 3.430.2.7 Hospit a .3.229003 l .8 2020-04-22 2020-04-22 Telephone Meli, 1.2.840.1 [id number] 361 [id number] Methodi 00:00:00 00:00:[address] 3.430.2.7 Hospit a .3.501722 l .8 2020-04-22 2020-04-22 Travel 1.2.840.1 1.2.691.361 7385 075963 Methodi 00:00:00 00:00:[address] 3.430.2.7 0.2.7.3.698 Ho spita .3.799368 084.8 l .8 2020-04-21 2020-04-21 [facility] [id number] 2 [id number] Methodi 06:51:00 10:43:[address] 3.430.2.7 Hospit a .3.470158 l .8 2020-04-21 2020-04-21 Orders Meisenbach, 1.2.840.1 [id number] 21 [id number] Methodi 00:00:00 00:00:00 Only Sarai Corbin. 59909.1.1 550 s t 3.430.2.7 Hospit a .3.762436 l .8 2020-04-16 2020-04-16 Telephone Carol Ann, 1.2.840.1 [id number] Methodi 00:00:00 00:00:00 Sarai Lieberman 16732.1.1 673 s t 3.430.2.7 Hospit a .3.863700 l .8 2020-04-10 2020-04-10 Telephone Yazmin, 1.2.840.4 [id number] [id number] Methodi 00:00:00 00:00:[address] 3.430.2.7 Hospit a .3.260802 l .8 2020-04-07 2020-04-07 Telephone Nahum, 1.2.840.1 [id number] 2099 086850 Methodi 00:00:00 00:00:[address] 3.430.2.7 Hospit a .3.131005 l .8 2020-04-01 2020-04-01 Orders Provider, 1.2.840.1 [id number] 2099 266652 Methodi 00:00:00 00:00:00 Only Historical 80127.1.1 049 s t 3.430.2.7 Hospit a .3.763536 l .8 2020-03-31 2020-03-31 Travel 1.2.840.1 1.2.147.347 7160 740917 Methodi 00:00:00 00:00:[address] 3.430.2.7 0.2.7.3.698 Ho spita .3.377186 084.8 l .8 2020-03-27 2020-03-27 Telephone Paula Min 1.2.840.6 [id number] Methodi 00:00:00 00:00:[address] 3.430.2.7 Hospit a .3.285185 l .8 Results Test Description Test Time Test Comments Results Result Comments Source Novel Coronavirus 2019 Inhouse 2021-08-03 18:08:00 Test Item Value Reference Range Interpretation Comme nts Novel Coronavirus 2018 Negative Negative Posit bruno results are indicative of the Inhouse (test code = presenc e ptDMRV-WeB-6 RNA, clinical COVNONPUI) correlation wit h patient [...] qualitative detection of nucleic acid s from uvwKKRX-DaQ-7 virus and diagn osis of SARS-CoV-2 virusinfection. It is an Emergency Use Authorization ( EUA) testauthorized by the U.S. FDA. BASIC METABOLIC BRILW5156-48-56 09:37:00 Test Item Value Reference Range Interpretation [...] = 9.0 mg/dL 8.0-10.5 N CA) PROTHROMBIN RWBK1809-73-89 09:32:00 Test Item Value Reference Range Interpretation [...] o prevent recurre nt infarct). 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 [facility] - XR CHEST 1 Z8753-47-25 00:00:00 [facility] : 1955 Sex: F FAX: Lele Olivera DO [phone] [place]: St: ADM FAX: Jean Paul Scales MD [phone] FAX: Bahman Chopra [phone] Name: LIO WATTS [facility] : 1955 Age/S: 66/F [address] [place] [address] Unit #: [id number] Loc: [place] [address] Phys: Bahman Chopra [facility] Acct: [id number] Dis Date: Status:ADM IN PHONE #: [phone] Exam Date: 06/17/2021 1320 FAX #: [phone] Reason: WATCHMAN EXAMS: CPT CODE: [id number] XR CHEST 1 V 37098 PROCEDURE INFORMATION: Exam: XR Chest Examdate and [...] Chopra Technologist: RT Taylor(R) Trnscrd Date/Time/By: 06/17/2021 (2129) : By: Susanna Orig Print D/T: S: 06/17/2021 (4214) PAGE 1 Signed ReportCOVID 19 Asymptomatic IH WE5700-00-06 12:29:00 Test Item Value Reference Range Interpretation [...] perform moderate, high or waivedcomplexit y tests. SBVLDSNHER7298-85-01 11:37:00 Test Item Value Reference Range Interpretation Comments PREALBUMIN (test code = PREALB) 24.3 mg/dL 16.0-40.0 N BASIC METABOLIC FBLKS9121-59-88 11:37:00 Test Item Value Reference Range Interpretation [...] = 9.0 mg/dL 8.0-10.5 N CA) PROTHROMBIN [id number] 11:03:00 Test Item Value Reference Range Interpretation [...] o prevent recurre nt infarct). CBC W/AUTO PPNV3921-29-26 10:59:00 Test Item Value Reference Range Interpretation [...] 0.0-0.1 N NRBC#) - XR CHEST 2 [id number] 00:00:00 [facility] : 1955 Sex: F FAX: Lele Olivera [phone] [place]: St: PRE FAX: Jean Paul Scales MD [phone] Name: LIO WATTS [facility] : 1955 Age/S: 66/F [address] [place] [address] Unit #: [id number] Loc: [place] [address] [id number] Dis Date: Status: PRE [facility] PHONE #: [phone] Exam Date: 06/16/2021 1120 FAX #: [phone] Reason: PREOP EXAMS: CPT CODE: [id number] XR CHEST 2 V 18731 PROCEDURE INFORMATION: Exam: XR Chest Exam date [...] MD Technologist: RT Andree(R) Trnscrd Date/Time/By: 06/16/2021 (8105) : By: [email or web address] Orig Print D/T: S: 06/16/2021 (3933) PAGE 1 Signed ReportGastrointestinal htcdf5613-50-61 04:35:05 Test Item Value Reference Interpretation Comments [...] Rotavirus PCR (test Not Detected code = 3021598) Salmonella PCR (test Not Detected code = [...] PCR Not Detected (test code = 7124) [facility] [id number] 19:17:40EXAMINATION: XR ABDOMEN 1 VW CLINICAL HISTORY: [...] Osseous structures are stable. Cholecystectomy clips are noted.[id number] [place] < 1 Yekr1584-67-35 19:41:02EXAMINATION: OR FL < 1 HOUR C-arm fluoroscopy was requested in OR. Location: [facility] OR [facility] 6 Procedure: EGD WITH BOTOX INJECTION [...] will be issued by the physician performingthe procedure.[id number] HospitalSurgical pathology request 2020-09-08 19:30:47 Test Item Value Reference Range Interpretation Comments Case number (test [id number] code = 8003886) Surgical pathology See link below for PDF report (test code = Lab Report 2255) Result status (test This is Supplemental code = 9786633) Report for [id number] [facility] 1 Vw Cgeozqvy3727-85-02 23:06:58EXAMINATION: XR CHEST 1 VW PORTABLE HISTORY: [...] to prior. Bilateral shoulder arthroplasties. [facility]-[id number] Interface, Radiology Results 09/06/2020 6:09PM CDT EXAMINATION: [...] enlarged, similar to prior.Bilateral shoulder arthroplasties.[facility]-LJC232352WVidzbnvwf HqvogjefXxvduw7411-86-74 16:47:23Kirit Flood MD 09/05/2020 11:48 [address] Location: [...] RSI: Yes Number of Attempts at Approach: [address] [place] [address] 12 iosl1107-81-96 23:21:56 Test Item Value Reference Range Interpretation [...] T wave abnormality, consider anterior ischemia-Abnormal ECG- [facility] HospitalCOVID-19 qualitative OTY6985-01-60 22:48:41 Test Item Value Reference Range Interpretation Comments Interpretation (test Negative results do code = 3986321) not preclude 2019-nCoV infection and should not be used as the sole basis for treatment or other patient management decisions. Negative results must be combined with clinical observations, patient history, and epidemiological information. COVID-19 qualitative Not-Detected Not-Detected RT-PCR result (test code = 88384-4) COVID-19 qualitative See link below for C ase Number: RT-PCR (test code = PDF Lab Report [id number]) [facility]2021-04-09 16:31:00 Test Item Value Reference Range Interpretation Comments POC Activated Clotting Time (test code 153 s = POC Activated Clotting Time) [place] 550381-04-09 16:31:00 Test Item Value Reference Range Interpretation Comments POC Activated Clotting Time (test code 153 s = POC Activated Clotting Time) [facility] HospitalMgvryvePTDTYGAIMU3818-61-78 16:31:00 Test Item Value Reference Range Interpretation Comments POC Activated Clotting Time (test code 153 s = POC Activated Clotting Time) [facility] HospitalAphyodgVMWTXBRFRZ4089-16-68 16:31:00 Test Item Value Reference Range Interpretation Comments POC Activated Clotting Time (test code 153 s = POC Activated Clotting Time) [facility] HospitalYmjvexhBRTPYIHMHK5763-22-64 16:31:00 Test Item Value Reference Range Interpretation Comments POC Activated Clotting Time (test code 153 s = POC Activated Clotting Time) [facility] HospitalLkjkzpdVPDDNAUCUO8370-43-53 16:31:00 Test Item Value Reference Range Interpretation Comments POC Activated Clotting Time (test code 153 s = POC Activated Clotting Time) [facility] HospitalSmcnnfhQHURYVZSZF7100-77-62 16:31:00 Test Item Value Reference Range Interpretation Comments POC Activated Clotting Time (test code 153 s = POC Activated Clotting Time) [facility] HospitalSzcsyxcUWOKDOTBZO0031-32-73 14:37:00 Test Item Value Reference Range Interpretation Comments POC Activated Clotting Time (test code 454 s = POC Activated Clotting Time) [facility] HospitalCyqybuiWCKBXSGRAH2051-85-63 14:37:00 Test Item Value Reference Range Interpretation Comments POC Activated Clotting Time (test code 454 s = POC Activated Clotting Time) [facility] HospitalOfrcvlnPRJXCMGPXG7886-76-79 14:37:00 Test Item Value Reference Range Interpretation Comments POC Activated Clotting Time (test code 454 s = POC Activated Clotting Time) [facility] HospitalDbbkxefJKFRXDRCQT5320-17-64 14:37:00 Test Item Value Reference Range Interpretation Comments POC Activated Clotting Time (test code 454 s = POC Activated Clotting Time) [facility] HospitalRhlmolnMCNQXYBEAJ4906-53-92 14:37:00 Test Item Value Reference Range Interpretation Comments POC Activated Clotting Time (test code 454 s = POC Activated Clotting Time) [facility] HospitalIgmvgrlASOQTLMTOK9985-42-68 14:37:00 Test Item Value Reference Range Interpretation Comments POC Activated Clotting Time (test code 454 s = POC Activated Clotting Time) [facility] HospitalAwkuhibKHPPOSAXJW6493-71-81 14:37:00 Test Item Value Reference Range Interpretation Comments POC Activated Clotting Time (test code 454 s = POC Activated Clotting Time) [facility] HospitalQwwhuzwICILLWHHAL6618-38-92 14:13:00 Test Item Value Reference Range Interpretation Comments POC Activated Clotting Time (test code 354 s = POC Activated Clotting Time) [facility] HospitalMubdruzGOMKLPVSWU4218-31-83 14:13:00 Test Item Value Reference Range Interpretation Comments POC Activated Clotting Time (test code 354 s = POC Activated Clotting Time) [facility] HospitalBhamosaTQMMKWLRRH3892-92-80 14:13:00 Test Item Value Reference Range Interpretation Comments POC Activated Clotting Time (test code 354 s = POC Activated Clotting Time) [facility] HospitalWjkncjdMIMSXWXFLV6179-53-30 14:13:00 Test Item Value Reference Range Interpretation Comments POC Activated Clotting Time (test code 354 s = POC Activated Clotting Time) [facility] HospitalIqwrufnBRLRKMDRJC3618-46-20 14:13:00 Test Item Value Reference Range Interpretation Comments POC Activated Clotting Time (test code 354 s = POC Activated Clotting Time) [facility] HospitalExyhqapSTMMGUGXCK6396-51-01 14:13:00 Test Item Value Reference Range Interpretation Comments POC Activated Clotting Time (test code 354 s = POC Activated Clotting Time) [facility] HospitalZvnfylfRBFCDITBDS0788-37-81 14:13:00 Test Item Value Reference Range Interpretation Comments POC Activated Clotting Time (test code 354 s = POC Activated Clotting Time) [facility] FFIMSYW4726-04-91 10:37:00Negative (08/29/20 5:37 AM) [facility] HermannCHEM JALJG5992-03-20 10:37:99830Hrlzleop HermannCHEM PANEL 2020-08-29 10:37:0028[facility] HermannCHEM PJMDD9033-60-90 10:37:001.01[facility] HermannCHEM NAVXZ5289-35-39 10:37:35933Qhelvnsx HermannCHEM JVKLL2734-64-80 10:37:003.8[facility] HermannCHEM DBMYX8002-75-92 10:37:70737Fullnmjf HermannCHEM XHGVY4907-35-32 10:37:0028[facility] HermannCHEM URZWH6745-74-70 10:37:009.8 [facility] HermannCHEM UADIO1764-04-01 10:37:0011.8[facility] HermannCHEM PANEL 2020-08-29 10:37:0059[facility] HermannCHEM BSHFU0308-93-60 10:37:002.9[facility] EcnefnmPGTFPDWRIG0858-88-31 10:37:006.8[facility] FeprchdDXBBUOOJNB9442-68-22 10:37:004.47[facility] KuhpxseVIFBRACWLF8716-48-44 10:37:0010.6[facility] [place] FRHZUQBDJP3031-13-26 10:37:0034.0[facility] VzqcmhsPXAIAGGKGJ4369-33-50 10:37:00 76.1[facility] EcjynaiUHXXZNTWHM2408-10-30 10:37:00 Test Item Value Reference Range Interpretation Comments MCH (test code = MCH) 23.8 pg 27.0-31.0 [facility]aNsihscsDHBVNCCEEY3268-20-91 10:37:0031.3[facility] HermannHEMATOLOGY 2020-08-29 10:37:0018.2[facility] CucqfeuETZCEIEOMO9720-02-61 10:37:09713Eegoviiu ZigulelHEBTSCFKQZ1754-45-77 10:37:007.5[facility] UhgfbcmLVIULKPVTW9200-71-37 10:37:00 Test Item Value Reference Range Interpretation Comments PT (test code = PT) 12.8 s 12.0-14.7 [facility]aFcvvwcnNLFZQEEFZA7994-39-16 10:37:00 Test Item Value Reference Range Interpretation Comments INR (test code = INR) 0.97 1 0.85-1.17 [facility]aBpuanaaWFNZFRSYGV3890-46-04 10:37:00 Test Item Value Reference Range Interpretation Comments PTT (test code = PTT) 25.0 s 22.9-35.8 [facility] RrfhqccQPLDINPLYD9074-73-61 10:37:0070.5[facility] HermannHEMATOLOGY 2020-08-29 10:37:0018.8[facility] NuijwaaHDKYYDLKDM6435-69-59 10:37:009.5[facility] IsgbsfcEJGUAQHJOE8924-88-40 10:37:000.9[facility] BhkynriVFNMCJKRTX2018-71-89 10:37:000.3[facility] IgmktsbFLUMOPKFTT3759-14-57 10:37:004.8[facility] NNHIADMHKJ7014-93-02 10:37:001.3[facility] KgrnbuqALVVSMQKRF4843-70-02 10:37:000.6 Memorial DobktrlEZHRWXYJGY7052-30-35 10:37:000.1[facility] HermannHEMATOLOGY 2020-08-29 10:37:001+ *ABN*(08/29/20 5:37 AM)[facility] YcqcsvhGTRIMMCOHK9248-84-09 10:37:00Not Detected (08/29/20 5:37 AM)[facility] HermannBLOOD BANK RESULTS 2020-08-29 10:37:00Negative (08/29/20 5:37 AM)[facility] HermannCHEM JPOCQ7638-34-67 10:37:01741Cgkzswbd HermannCHEM JKBMA6850-15-32 10:37:0028[facility] HermannCHEM VYNHB9460-19-42 10:37:001.01[facility] HermannCHEM ONIIP2380-84-02 10:37:27092 [facility] HermannCHEM ADTLY6926-13-90 10:37:003.8[facility] HermannCHEM PANEL 2020-08-29 10:37:35337Nkvrxyqq HermannCHEM BECNH8431-24-99 10:37:0028[facility] HermannCHEM PEFFW3714-56-33 10:37:009.8[facility] HermannCHEM TCOII8546-39-31 10:37:0011.8[facility] HermannCHEM AOBGK3059-79-17 10:37:0059[facility] HermannCHEM UVAKY4755-76-75 10:37:002.9[facility] EitjthmPFVFOVOJHE8194-75-59 10:37:006.8 Memorial WrghexyVBBWANPGTF3974-04-81 10:37:004.47[facility] HermannHEMATOLOGY 2020-08-29 10:37:0010.6[facility] CslaumlQZGJBBATGC2282-10-77 10:37:0034.0[facility] BdvqjntEDZEXQOGSK0773-80-29 10:37:0076.1[facility] OdbkfieIMRYGACDQR4340-57-62 10:37:00 Test Item Value Reference Range Interpretation Comments MCH (test code = MCH) 23.8 pg 27.0-31.0 Memorial LikfbmoQVJDGXXEZY5771-35-11 10:37:0031.3[facility] HermannHEMATOLOGY 2020-08-29 10:37:0018.2[facility] OpynwyxRZTRKCZCMX7149-00-28 10:37:48604Evyrragt AnggmnmAYKPMSLYAK3065-77-93 10:37:007.5[facility] TlsghelOBRBFJMLLA1438-04-57 10:37:00 Test Item Value Reference Range Interpretation Comments PT (test code = PT) 12.8 s 12.0-14.7 Memorial BnwvlxqIWZSJHLZUM2371-99-73 10:37:00 Test Item Value Reference Range Interpretation Comments INR (test code = INR) 0.97 1 0.85-1.17 [facility] FfeaboqMFJGIHDRRI8750-34-20 10:37:00 Test Item Value Reference Range Interpretation Comments PTT (test code = PTT) 25.0 s 22.9-35.8 [facility] TrbyvefCYGWIXNJBV9064-44-56 10:37:0070.5[facility]annHEMATOLOGY 2020-08-29 10:37:0018.8[facility] KoeupefJCNNARCNET2682-60-41 10:37:009.5[facility] XmioakoZKHVIUUPYH6470-74-64 10:37:000.9[facility] LjmslyvABUFBFSECA4249-66-81 10:37:000.3[facility] AqdwhnbXJWSBCCQGD6160-02-68 10:37:004.8[facility] BPEPGIWRDV7027-28-84 10:37:001.3[facility] EjnfwmiFWVOZGBOCF5855-40-55 10:37:000.6 [facility] DrhsxqyDSVJBGMOJT5176-25-12 10:37:000.1[facility]annHEMATOLOGY 2020-08-29 10:37:001+ *ABN*(08/29/20 5:37 AM)[facility] RbgtmviFGCJNIVRNA9742-03-11 10:37:00Not Detected (08/29/20 5:37 AM)[facility] RESULTS 2020-08-29 10:37:00Negative (08/29/20 5:37 AM)[facility]annCHEM QTNJB0378-64-90 10:37:14758Cvoyravn HermannCHEM LQPQB7230-53-20 10:37:0028[facility]annCHEM YFVGS7082-91-45 10:37:001.01[facility] HermannCHEM DVHNQ5692-96-70 10:37:70336 [facility]annCHE[facility] ORTUV0508-80-23 10:37:003.8[facility] HermannCHEM PANEL 2020-08-29 10:37:72940Zkrpaelu HermannCHEM DMFBG9322-59-38 10:37:0028[facility]annCHEM BJNBO6360-11-24 10:37:009.8[facility] HermannCHEM FKWPL5488-88-23 10:37:0011.8[facility]annCHEM ZHJME0473-13-81 10:37:0059[facility]annCHEM VNADI2800-65-66 10:37:002.9[facility] OqmrbjmGMGPNHODGY0930-62-60 10:37:006.8 [facility] DgtbuczIOUWBHGLAS5149-17-45 10:37:004.47[facility]annHEMATOLOGY 2020-08-29 10:37:0010.6[facility] UulabqkPVGPXTILSC5126-22-28 10:37:0034.0[facility] EweltktPNVMWAJTWP6282-48-72 10:37:0076.1[facility] XlnarmwHJOEHYTGXY3135-89-23 10:37:00 Test Item Value Reference Range Interpretation Comments MCH (test code = MCH) 23.8 pg 27.0-31.0 [facility] DsppydvHCEOLXZVFL0770-22-57 10:37:0031.3[facility]annHEMATOLOGY 2020-08-29 10:37:0018.2[facility] HesshqnEKQUNWTLOS3964-52-63 10:37:96351Uwmwrdyr HhucgrcIUREODAMBJ3439-65-22 10:37:007.5[facility] SsccjwxJMOYYOXVLO4344-68-19 10:37:00 Test Item Value Reference Range Interpretation Comments PT (test code = PT) 12.8 s 12.0-14.7 [facility] MbldhkhBUXIBZZDNI9065-21-69 10:37:00 Test Item Value Reference Range Interpretation Comments INR (test code = INR) 0.97 1 0.85-1.17 [facility] AkpcujeDRIEERCWXY0388-11-03 10:37:00 Test Item Value Reference Range Interpretation Comments PTT (test code = PTT) 25.0 s 22.9-35.8 [facility] FvgpwqcATXNIICQTJ4125-39-38 10:37:0070.5[facility]annHEMATOLOGY 2020-08-29 10:37:0018.8[facility] MdtbfodHECJNWDRTJ0820-90-24 10:37:009.5[facility] PhprcfrMZVWQQXVZR7063-70-27 10:37:000.9[facility] YycpdygFTBFZBEDXQ0049-66-84 10:37:000.3[facility] HmuepsbHBOIHXTFRQ2508-25-45 10:37:004.8[facility] SKTKUGIKSK4121-33-24 10:37:001.3[facility] WlzkfxhFRMJSYRFPS5669-35-75 10:37:000.6 [facility] ModecnkEPOSZQHZDI8921-10-06 10:37:000.1[facility] HermannHEMATOLOGY 2020-08-29 10:37:001+ *ABN*(08/29/20 5:37 AM)[facility] ZrdmkpwYKBDWZOWNT2094-67-64 10:37:00Not Detected (08/29/20 5:37 AM)[facility] 2020-08-29 10:37:00Negative (08/29/20 5:37 AM)[facility]annCHEM MUNJZ3289-92-46 10:37:85362Hmbpsgym HermannCHEM SNECS1363-44-52 10:37:0028[facility]annCHEM IKBWG0857-73-29 10:37:001.01[facility]annCHEM KCPFK5232-02-28 10:37:89231 [facility] HGBGC7626-05-13 10:37:003.8[facility]annCHEM PANEL 2020-08-29 10:37:76573Vvotixot HermannCHEM LAUPQ5074-49-95 10:37:0028[facility]annCHEM EFERO5920-27-40 10:37:009.8[facility]annCHEM RYARR6783-68-06 10:37:0011.8[facility]annCHEM EVHFI3073-70-42 10:37:0059[facility]annCHEM XXJPF3140-41-71 10:37:002.9[facility] NewdnydTNPJXGCEZY6330-89-38 10:37:006.8 [facility] PlfiakyNDPBJVZFYM7676-28-50 10:37:004.47[facility]annHEMATOLOGY 2020-08-29 10:37:0010.6[facility] AfgsjmtUYMNDVWJDB2060-66-88 10:37:0034.0[facility] QyssrcyFGQYJBMEFO3842-31-35 10:37:0076.1[facility] VywhcymEUMZXJQFFL7560-03-85 10:37:00 Test Item Value Reference Range Interpretation Comments MCH (test code = MCH) 23.8 pg 27.0-31.0 [facility] AwazfbpQTWYUNLKCS3194-73-71 10:37:0031.3[facility] HermannHEMATOLOGY 2020-08-29 10:37:0018.2[facility] LjpmcumNTZPWLGSUL6926-85-62 10:37:67048Dwtzasre ApmjoqrBZSQUUPDGF0332-03-81 10:37:007.5[facility] DowddhsCWTDSNBUQJ9541-12-05 10:37:00 Test Item Value Reference Range Interpretation Comments PT (test code = PT) 12.8 s 12.0-14.7 [facility] JrpiqsuHILVBHFUQF9768-59-27 10:37:00 Test Item Value Reference Range Interpretation Comments INR (test code = INR) 0.97 1 0.85-1.17 [facility] CrpinzwZILMTKCTZB2101-35-93 10:37:00 Test Item Value Reference Range Interpretation Comments PTT (test code = PTT) 25.0 s 22.9-35.8 [facility] BvzlvarBXYLTNRABW3867-90-73 10:37:0070.5[facility]annHEMATOLOGY 2020-08-29 10:37:0018.8[facility] QkbfkliHCDKBKYPJD2113-73-04 10:37:009.5[facility] HenejgmOERJGAZXFR7031-17-63 10:37:000.9[facility] OdvfittRIGSCSXZZO2616-40-15 10:37:000.3[facility] XvgstwyBDDMOWVFNP6181-15-49 10:37:004.8[facility] XTQGBZLBRA6561-97-78 10:37:001.3[facility] VmxyowdENRQCXPYWY7599-46-04 10:37:000.6 [facility] GmdljifFTTSNOCDMF3434-29-37 10:37:000.1[facility]annHEMATOLOGY 2020-08-29 10:37:001+ *ABN*(08/29/20 5:37 AM)[facility] DuwcnqaVYPRRAYGGL5207-37-08 10:37:00Not Detected (08/29/20 5:37 AM)[facility] 2020-08-29 10:37:00Negative (08/29/20 5:37 AM)[facility]annCHEM WZVXC5108-88-16 10:37:98561Mzjmdzry HermannCHEM QZRSR0117-41-53 10:37:0028[facility]annCHEM UMZFI2492-81-58 10:37:001.01[facility]annCHEM VNCYV8019-33-54 10:37:38552 [facility]CHE[facility] DOCTJ3005-98-75 10:37:003.8[facility] HermannCHEM PANEL 2020-08-29 10:37:42459Xbnfrfmf HermannCHEM ERQQZ1371-32-03 10:37:0028[facility]annCHEM BQXXI3363-16-49 10:37:009.8[facility]annCHEM NERPC7714-05-69 10:37:0011.8[facility]annCHEM FZVGO7078-05-27 10:37:0059[facility]annCHEM MDXCK7978-30-12 10:37:002.9[facility] YyqcoefSNKVHTXWZA3314-12-85 10:37:006.8 [facility] QglaqmkJMFMLKMZPA0380-05-23 10:37:004.47[facility]annHEMATOLOGY 2020-08-29 10:37:0010.6[facility] ChbzjytMRYKIHJQCP7067-17-27 10:37:0034.0[facility] WwueqjpOGVCOZZJIB9925-78-40 10:37:0076.1[facility] AliuvutWTWWXDYUEX7527-98-14 10:37:00 Test Item Value Reference Range Interpretation Comments MCH (test code = MCH) 23.8 pg 27.0-31.0 [facility] VhvpospMWVTSEUTFT7430-01-67 10:37:0031.3[facility] HermannHEMATOLOGY 2020-08-29 10:37:0018.2[facility] PodityeMCRXMWRPSY7615-69-17 10:37:53391Iwmpdkwf SptlvwtBXXIDEYBJL0409-23-76 10:37:007.5[facility] YueirzeFRUSHASARK4631-10-59 10:37:00 Test Item Value Reference Range Interpretation Comments PT (test code = PT) 12.8 s 12.0-14.7 [facility] TwhwkzcKFBNGKVPHP9615-44-47 10:37:00 Test Item Value Reference Range Interpretation Comments INR (test code = INR) 0.97 1 0.85-1.17 [facility] WlcsbmdDSFXQHKGTQ6092-35-36 10:37:00 Test Item Value Reference Range Interpretation Comments PTT (test code = PTT) 25.0 s 22.9-35.8 [facility] WdkzzcyCELVASLUPF1812-09-70 10:37:0070.5[facility] HermannHEMATOLOGY 2020-08-29 10:37:0018.8[facility] SebmtplBQOJNEEPOE7863-38-04 10:37:009.5[facility] DnluxvtIWGIWNAPNH8740-80-55 10:37:000.9[facility] QxdsbdiDHAHTUYKRC0768-47-66 10:37:000.3[facility] ZpqdnnhWWWAXNBVTF9954-30-62 10:37:004.8[facility] [place] NUDQEGMWCY1098-17-53 10:37:001.3[facility] NyirdoiPYVGSSBHRG6622-74-76 10:37:000.6 [facility] XqshozwXEQPDWLBXK9932-86-84 10:37:000.1[facility] HermannHEMATOLOGY 2020-08-29 10:37:001+ *ABN*(08/29/20 5:37 AM)[facility] BuefpkgVFHKRLZFON7418-83-04 10:37:00Not Detected (08/29/20 5:37 AM)[facility] RESULTS 2020-08-29 10:37:00Negative (08/29/20 5:37 AM)[facility]annCHEM ILTHN8113-67-63 10:37:21198Cgwqarga HermannCHEM ZOTIM5566-75-84 10:37:0028[facility]annCHEM AYLJK6921-38-04 10:37:001.01[facility] HermannCHEM PGLSN0136-78-82 10:37:69756 [facility]annCHEM NRKBP7726-10-06 10:37:003.8[facility] HermannCHEM PANEL 2020-08-29 10:37:23642Umpjitqh HermannCHEM TWWVZ3925-74-60 10:37:0028[facility] HermannCHEM LYTVC5676-86-77 10:37:009.8[facility] HermannCHEM XCLKD2530-20-38 10:37:0011.8[facility] HermannCHEM AFXSW0906-02-56 10:37:0059[facility] HermannCHEM IVCKH9388-62-05 10:37:002.9[facility] BlctqtgUFQHFQKOSZ4087-25-89 10:37:006.8 [facility] YqwbykmTAVFTQBVRI9112-88-14 10:37:004.47[facility]annHEMATOLOGY 2020-08-29 10:37:0010.6[facility] OkjrzzgJENWNBZDBS6122-54-81 10:37:0034.0[facility] GnpeiduEQAMSPMLRV6434-05-70 10:37:0076.1[facility] YiuqwseVDXCLJAJTI5655-04-90 10:37:00 Test Item Value Reference Range Interpretation Comments MCH (test code = MCH) 23.8 pg 27.0-31.0 [facility] BkbfwvyYFJJYFEPAH7512-50-35 10:37:0031.3[facility] HermannHEMATOLOGY 2020-08-29 10:37:0018.2[facility] HvjiinbIKMHQSIGUE5823-95-71 10:37:55195Nqtbcbfh FkzltesJWDHQDJTBX8162-62-77 10:37:007.5[facility] LozdbsrFAWRFVSSLQ3461-29-87 10:37:00 Test Item Value Reference Range Interpretation Comments PT (test code = PT) 12.8 s 12.0-14.7 [facility] LkddjqmQIMEDOOHVB2005-77-76 10:37:00 Test Item Value Reference Range Interpretation Comments INR (test code = INR) 0.97 1 0.85-1.17 [facility] VgcyhtvEKAPBOWUWQ4382-60-77 10:37:00 Test Item Value Reference Range Interpretation Comments PTT (test code = PTT) 25.0 s 22.9-35.8 [facility] IgkoztqWOTAHCKPQY2656-91-20 10:37:0070.5[facility] HermannHEMATOLOGY 2020-08-29 10:37:0018.8[facility] LvvnhopCAHCMNKKQE5664-91-89 10:37:009.5[facility] YvolvufJOVMLQUUEP6584-21-37 10:37:000.9[facility] BnxfojdWQKDUYWHTL3469-31-00 10:37:000.3[facility] HbhqtebCCUHBOOZGR7401-96-33 10:37:004.8[facility] YEDOIHKIUH5610-98-06 10:37:001.3[facility] NyvkkhmBYFZAZCZJF8814-21-70 10:37:000.6 [facility] NchzwoxZBGCBQNRBU8631-70-70 10:37:000.1[facility]annHEMATOLOGY 2020-08-29 10:37:001+ *ABN*(08/29/20 5:37 AM)[facility] AxxkgmhHVAWGCRFXK1533-81-65 10:37:00Not Detected (08/29/20 5:37 AM)[facility] HermannBLOOD BANK RESULTS 2020-08-29 10:37:00Negative (08/29/20 5:37 AM)[facility] HermannCHEM YGRRF2063-92-56 10:37:15139Mminrgil HermannCHEM PUXUU9645-08-99 10:37:0028[facility] HermannCHEM QLRVC8288-19-52 10:37:001.01[facility] HermannCHEM ZYTSY7721-62-34 10:37:46549 [facility]annCHEM LKADO0999-99-28 10:37:003.8[facility] HermannCHEM PANEL 2020-08-29 10:37:69548Ecqwomea HermannCHEM DYOVU1158-26-88 10:37:0028[facility] HermannCHEM PJEMM3523-46-89 10:37:009.8[facility] HermannCHEM ANGST5689-63-58 10:37:0011.8[facility] HermannCHEM QZRUK8234-70-89 10:37:0059[facility] HermannCHEM SIWLK0861-81-29 10:37:002.9[facility] ZnilvbmQLJLOCKIGS2275-09-88 10:37:006.8 [facility] IfqxgtlOFIKEMCHGJ0098-12-30 10:37:004.47[facility]annHEMATOLOGY 2020-08-29 10:37:0010.6[facility] AlkugglFOXMNDBDLO8940-66-35 10:37:0034.0[facility] StyvjeiLKMIHUUWXQ3124-62-93 10:37:0076.1[facility] TnghzjyOVGUOJXHUH7372-39-76 10:37:00 Test Item Value Reference Range Interpretation Comments MCH (test code = MCH) 23.8 pg 27.0-31.0 [facility] ZgtxsdrFIRDQPQOIA9073-86-10 10:37:0031.3[facility] HermannHEMATOLOGY 2020-08-29 10:37:0018.2[facility] PbqkntsSLHGNUSULX7181-53-65 10:37:64835Auvkdwmd JqqgovzVJGDJTGIIO7284-17-71 10:37:007.5[facility] OdqyeclATLOVNWDSS6832-34-74 10:37:00 Test Item Value Reference Range Interpretation Comments PT (test code = PT) 12.8 s 12.0-14.7 [facility] SlpxkhuZLHTCGUGCA0546-58-45 10:37:00 Test Item Value Reference Range Interpretation Comments INR (test code = INR) 0.97 1 0.85-1.17 [facility] YlsdoypCTSKMKYHKS7720-89-65 10:37:00 Test Item Value Reference Range Interpretation Comments PTT (test code = PTT) 25.0 s 22.9-35.8 [facility] WpaldpmJNHUYUSQCF8271-08-96 10:37:0070.5[facility]annHEMATOLOGY 2020-08-29 10:37:0018.8[facility] SuklqhdBBPYDVQWUU5922-71-12 10:37:009.5[facility] QwhtwhnUNPDWWTETR5889-57-13 10:37:000.9[facility] TshoimePQFRORBQUD1367-75-86 10:37:000.3[facility] HwmejjuVNDWXWNYJE3666-09-66 10:37:004.8[facility] MIDFZRORWP9831-72-84 10:37:001.3[facility] JmlpizpOUXIIBKEHN4841-81-85 10:37:000.6 [facility] BgadntxPRWXJQDVKF6885-49-18 10:37:000.1[facility] HermannHEMATOLOGY 2020-08-29 10:37:001+ *ABN*(08/29/20 5:37 AM)[facility] VaqmrzhDDLDPOTCEF4475-99-29 10:37:00Not Detected (08/29/20 5:37 AM)[facility] 2020-08-27 23:14:39PROCEDURE: [...] complete emptying by 4 hours. [facility]-[id number] Interface, Radiology Results 08/27/2020 6:17 PM CDT [...] complete emptying by 4 hours. [facility]-[id number] HospitalMiscellaneous referral test 2020-05-09 21:24:58 Test Item Value Reference Range Interpretation Comments Misc test HIV-1 RNA QUAL PCR name (test code = 2566) Misc test see note Human Immunodef iciency result (test Virus 1 (HIV-1) by code = 1730) Qualitative Multimedia Editor-M ediated Amplification ( TMA) [facility] test code 5679542 HIV-1 by Qualit ative TMA See Note SOURCE/SPECIMEN PLASMA HIV-1 RNA, QUAL ITATIVE TMA HIV-1 RNA, QL TMA T OFFICE SYSTEM ANALYST Test Not Performed. Initial testing necessi tated a repeat, but the re was insufficient sa mple to perform repeat. SAMPLE LEFT FOR REPEAT IS 50 uL. NEED 1000 u L TO RUN REPEAT. This te st was performed using the APTIMA(R) HIV-R NA Qualitative Ass ay (Gen-Probe). ======== ======== Te st performed by:[employer] [place] [id number] KYLE (test HIVQL - HIV-1 RNA, code = KYLE) Qualitative TMA (FROZEN)[facility]UP Test Code: 9596350Fovcbo: plasma [facility] duplex venous upper kcjfjdjgh6976-43-53 04:57:00 Vascular Ultrasound Laboratory Upper Extremity Venous Report [address]Name: LIO WATTS Marta.ID: [id number] .Date: 04/30/2020 Refer.MD: ELISEO ARCE MD Exam Time: 5:04:00 PM Study Type:UE Venous Age: 9 1955,65Y Sex: FEMALE Sonogrphr: IBIS Espinosa, SANKET Pat. Stat.:Inpatient Room: [place] [address] 2020 Tape Vol: JM, CPT - 4: 75144 Echo Event ID:[id number] Order ID: [id number] Reason for Study:Arm swelling or pain, DVT [...] veins.*Preliminary result reported to ASHLEY Santos @ 2222 on 04/30/20.PHYSICIAN INTERPRETATION Venous examination of the both upper extremities and neck demonstratedno evidence of deep venous thrombosis. Total superficial vein thrombosis of the right basilic vein. FINDINGS: Signed 04/30/2020 10:57 PMFrancis Cabral MD, RPVIIntsaint cabrini hospital, Radiology Results In - 04/30/2020 10:58 PM CST Vascular Ultrasound Laboratory Upper Extremity Venous Report [address] [place] [address] Pat.Name: LIO WATTS Pat.ID: [id number] St.Date: 04/30/2020 Refer.MD: ELISEO ARCE MD Exam Time: 5:04:00 PM Study Type:UE Venous Age: 9 1955,65Y Sex: FEMALE Sonogrphr: IBIS Espinosa, SANKET Pat. Stat.:Inpatient Room: [place] [address] 2020 Tape Vol: , CPT - 4: 84046 Echo Event ID:[id number] Order ID: [id number] Reason for Study:Arm swelling or pain, DVT [...] veins.*Preliminary result reported to ASHLEY Santos @ 8115 on 04/30/20.PHYSICIAN INTERPRETATION Venous examination of the both upper extremities and neck demonstratedno evidence of deep venous thrombosis. Total superficial vein thrombosis of the right basilic vein. FINDINGS: ------Signed 04/30/2020 10:57 Rajni Cabral MD, [facility]XR [facility] 2 Gm1222-87-10 22:21:01EXAMINATION: XR CHEST 2 VW CLINICAL HISTORY: [...] active disease of the chest.[id number]_PS01[facility] Unsuccessful Tqtkauq2186-67-64 17:14:34ANicole zhang RN 04/30/2020 11:25 AMMidline Unsuccessful [...] a PIV g.20 in lower arm .[facility] Abdomen 1 Vw Zsdeftjm7913-87-87 16:20:14EXAMINATION: XR ABDOMEN 1 VW PORTABLE CLINICAL HISTORY: Abdominal pain post op COMPARISON: No prior IMPRESSION:1.Residual barium within the colon throughout. No small bowel obstruction noted. [facility]2U [id number] Interface, Radiology Results Incoming - 04/30/2020 10:23 AM CST EXAMINATION: XR ABDOMEN 1 VW PORTABLECLINICAL HISTORY: Abdominalpain post opCOMPARISON: No priorIMPRESSION:1.Residual barium within the colon throughout. No smallbowel obstruction noted.[facility]-[id number] Houston Healthcare ConroeAfonukhwQbwzvx9533-70-47 20:57:57Carlee Malloy MD 04/28/2020 2:59 PMAirwayPerformed by: Carlee Malloy MDAuthorized by: Carlee Malloy MD Location: ORUrgency: ElectiveDifficult Airway: No Anesthesiologist: Kvng Malloy MDResident/WAITSTAFF CAPTAIN/AA: Allan Morocho DOPerformed by: resident/WAITSTAFF CAPTAIN/AAPreoxygenated ipiw667% O2: Yes C- spine Precautions Maintained Throughout: [...] No Number of Attempts at Approach: 1 [facility] HospitalTransthoracic Echocardiogram Complete, (w Contrast, Strain and 3D if needed)2020-04-28 00:20:00 Echocardiography Report [address] [address] Pat.Name: ILO WATTS.ID: [id number] .Date: 04/27/2020 Refer.MD: ELISEO ARCE MD Exam Time: 2:21:00 PM Study Type:Routine Echo Height: 64in Weight: 213lb BSA: 2.01 m2 Age: 9 1955,65Y Sex: FEMALE BP: 128/89 HR: 102 bpm Sonogrphr: SANKET Perkins Pat. Stat.:Inpatient Room: [facility] Study Status:Final Echo Event ID:[id number] Order ID: [id number] Reason for Study:Atrial FibrillationHistory / Clinical:Hypertension Procedures: [...] estimate PA systolic pressure. MEASUREMENTS: 2DParasternal Long [place] Ao An 2.2 cm LVPWd 1 cm [...] - 04/27/2020 6:21 PM CST Echocardiography Report [address] [place] [address] Pat.Name: LIO WATTS Pat.ID: [id number] .Date: 04/27/2020 Refer.MD: ELISEO ARCE MD Exam Time: 2:21:00 PM Study Type:Routine Echo Height: 64in Weight: 213lb BSA: 2.01 m2 Age: 9 1955,65Y Sex: FEMALE BP: 128/89 HR: 102 bpm Sonogrphr: SANKET Perkins Pat. Stat.:Inpatient Room: [facility] Study Status:Final Echo Event ID:[id number] Order ID: [id number] Reason for Study:Atrial FibrillationHistory / Clinical:Hypertension Procedures: [...] PA systolic pressure.- MEASUREMENTS: ---- 2DParasternal Long [place] Ao An 2.2 cm LVPWd 1 cm [...] CI 3.1 l/m/m2 Signed 04/27/2020 06:20 PMMoformerly [facility] MarioTexas [facility] Esophagram Double Qrkfrpif3388-32-59 18:07:12EXAMINATION: FL ESOPHAGRAM DOUBLE CONTRAST CLINICAL HISTORY: [...] hiatal hernia. There was mild spontaneous gastroesophageal reflux.[id number]_PS01[facility] Chest Wo Contrast Abdomen Wo Contrast Pelvis Wo Agxjzslr5713-60-20 15:23:55EXAMINATION: CT CHEST WO CONTRAST ABDOMEN WO [...] incidental findings as detailed above. [facility]-[id number] Dictated and approved by radiology resi dent/fellow: Jenna Valenzuela M.D. I, Medhat Flowers Jr., M.D., personally reviewed the images and resident's/fellow's findings and agree with the final report.[facility], Radiology Results Incoming - 04/21/2020 9:27 [...] and incidental findings as detailed above.[facility]-[id number] and approved by residential property manager/fellow: Jenna Valenzuela M.D.I, Medhat Flowers Jr., M.D., personally reviewed the images and resident's/fellow's findings and agree with the final report. [facility], GC, TV,PCR, IN [id number] 15:38:00 Test Item Value Reference Range Interpretation Comments FT (test code = CHTR) Not detected (qualifier Not Detected N value) FT (test code = Not detected (qualifier Not Detected N NGONO) value) FT (test code = TRVG) Not detected (qualifier Not Detected N value) URINALYSIS WITH QKMFFXBUJDS7330-39-09 10:57:00 Test Item Value Reference Range Interpretation Comments Color (test code = UCOLR) Dk. Yellow Clarity (test code = UCLAR) Hazy Glucose (test code = UGLUC) NEGATIVE NEGATIVE N Bilirubin (test code = UBILI) NEGATIVE NEGATIVE N Ketones (test code = UKET) NEGATIVE NEGATIVE N Specific [place] (test code = 1.025 1.005-1.030 A USPGR) [...]
--- NOTE | 2021-08-11 16:48 | RAD REPORT ---
EXAM DESCRIPTION: Patrick Saldana And Tanner (2 Views)08/11/2021 4:09 pm CLINICAL HISTORY: Chest pain COMPARISON: August 10, 2021 FINDINGS: The lungs appear clear of acute infiltrate. The heart is mildly enlarged
[2021-08-11 17:39] LABS: Absolute Lymphocytes (CBC) 1.5 K/uL (0.7-4.9); Lymphocytes % 23.6 % (15.3-44.8); MPV 7.3 fL (7.6-11.3); RBC Red Blood Cell Count 4.17 M/uL (3.86-4.86)
[2021-08-11 17:45] LABS: Protime INR 1.04
[2021-08-11] MEDS ORDERED: METHYLPREDNISOLONE 125 MG INJ ONE (17:58)
[2021-08-11] MEDS ORDERED: ASPIRIN 325 MG TAB ONE (17:59)
[2021-08-11] MEDS ORDERED: ALBUTEROL 2.5 MG/3 ML NEB SOL ONE (17:59)
[2021-08-11] MEDS ORDERED: IPRATROPIUM BROM 0.5MG/2.5ML ONE (17:59)
[2021-08-11 18:15] LABS: Troponin High Sensitivity 8.8 pg/mL (<58.9)
[2021-08-11 18:16] LABS: Magnesium 2.3 mg/dL (1.8-2.4); Potassium 3.6 mmol/L (3.5-5.1)
[2021-08-11] MEDS ORDERED: MORPHINE 4 MG/ML SYR ONE (18:37)
--- NOTE | 2021-08-11 18:57 | ER ---
Nurse's Notes [facility] Name: Fawn Fleming Age: 66 yrs Sex: Female : 1955 Arrival Date: 08/11/2021 Time: 14:48 Bed 4 Private MD: Diagnosis: Chest pain, unspecified;COPD/ Chronic obstructive pulmonary disease with (acute) exacerbation Presentation: 08/11 15:07 Chief complaint: Patient states: pt presented to ed reporting chest pain. Coronavirus restrepo screen: Vaccine status: Patient reports receiving the 2nd dose of the covid vaccine. Ebola Screen: Patient denies travel to an Ebola-affected area in the 21 days before illness onset. Initial Sepsis Screen: Does the patient meet any 2 criteria? No. Patient's initial sepsis screen is negative. Does the patient have a suspected source of infection? No. Patient's initial sepsis screen is negative. Risk Assessment: Do you want to hurt yourself or someone else? Patient reports no desire to harm self or others. Onset of symptoms was August 11, 2021. 15:07 Method Of Arrival: Ambulatory restrepo 15:07 Acuity: BLAYNE 3 restrepo Triage Assessment: 15:08 General: Appears in no apparent distress. Behavior is calm, cooperative. Pain: restrepo Complains of pain in chest. Cardiovascular: Chest pain. Historical: - Allergies: 15:08 Bactrim DS; restrepo 15:08 butorphanol tartrate; retsrepo 15:08 Fentanyl; restrepo 15:08 Reglan; restrepo 15:08 Stadol; restrepo 15:08 sulfamethoxazole (bulk); restrepo 15:08 TRIMETHOPRIM; restrepo - PMHx: 15:08 Anxiety; Atrial Fib; Bipolar disorder; Chronic pain; COPD; esophageal varices; restrepo Hepatitis; HIV; Hypertension; Migraines; Panic Attacks; - PSHx: 15:08 Appendectomy; Bilateral shoulder repair; hernia repair; Cholecystectomy; R wrist SX; restrepo - Immunization history:: Adult Immunizations up to date. - Social history:: Smoking status: Patient/guardian denies using tobacco, the patient reports quitting approximately 2 years ago. Screenin:09 Abuse screen: Denies threats or abuse. Denies injuries from another. Nutritional restrepo screening: No deficits noted. Tuberculosis screening: No symptoms or risk factors identified. Fall Risk None identified. Assessment: 18:00 Pain: Complains of pain in chest Pain does not radiate. Pain began chronic. jg9 18:37 Reassessment: Patient states feeling better. Patient states symptoms have improved. jg9 Patient reports she has some improvement in her breathing with the oxygen but not much-. Vital Signs: 15:07 BP 115 / 81; Pulse 73; Resp 18; Temp 97.4(O); Pulse Ox 97% on R/A; Weight 90.26 kg; restrepo Height 5 ft. 4 in. (162.56 cm); 18:00 BP 180 / 93; Pulse 68; Resp 24; Pulse Ox 95% on 2 lpm NC; jg9 18:30 BP 168 / 85; Pulse 67; Resp 20 S; Pulse Ox 92% on 2 lpm NC; jg9 15:07 Body Mass Index 34.16 (90.26 kg, 162.56 cm) ED Course: 14:48 Patient arrived in ED. kz 15:08 Triage completed. restrepo 15:08 Arm band placed on. restrepo 15:09 Fall risk band placed. security monitor on. Pulse ox on. NIBP on. restrepo 15:09 No provider procedures requiring assistance completed. restrepo 16:09 XRAY Chest Pa And Lat (2 Views) In Process Unspecified. EDMS 16:34 Reno Manriquez PA is PHCP. jr8 16:34 Ramon Baker MD is Attending Physician. 8 16:37 Karen Joseph, ASHLEY is Primary Nurse. jg9 18:30 No apparent distress. Resting quietly. Patient requests pain medication. jg9 18:39 Oxygen administration via nasal cannula \T\ 2L/min. jg9 19:09 IV discontinued, intact, bleeding controlled, No redness/swelling at site. Pressure 6 dressing applied. Administered Medications: 18:03 Drug: SOLU-Medrol (methylPrednisoLONE) 125 mg Route: IVP; Site: Other; [facility] 18:32 Follow up: Response: No adverse reaction; Marked relief of symptoms j9 18:03 Drug: Albuterol 2.5 mg Route: Inhalation; 6 18:32 Follow up: Response: No adverse reaction; Adverse reaction, Physician notified j9 18:03 Drug: AtroVENT (ipratropium) Aerosol 0.5 mg Route: Inhalation; 6 18:32 Follow up: Response: No adverse reaction j9 18:04 Drug: Aspirin Chewable Tablet 324 mg Route: PO; [facility] 18:32 Follow up: Response: No adverse reaction [facility] 18:36 Drug: morphine 4 mg Route: IVP; Site: Other; [facility] 19:12 Follow up: Response: Pain is decreased [facility] Outcome: 18:57 Discharge ordered by . jr8 19:08 Discharged to home ambulatory. 6 19:08 Condition: improved 19:08 Discharge instructions given to patient, Instructed on discharge instructions, follow up and referral plans. Demonstrated understanding of instructions, follow-up care. 19:11 Prescriptions given X 1. 6 19:12 Patient left the ED. [facility] Signatures: Dispatcher [employer] EDMS Reno Manriquez PA PA jr8 Karen Lo RN RN jh6 Karen Joseph RN RN jg9 Tata Jarvis RN RN ha Zapata, Kelly kz
--- NOTE | 2021-08-11 18:58 | EDPHYS ---
Physician Documentation [facility] Name: Fawn Fleming Age: 66 yrs Sex: Female : 1955 Arrival Date: 08/11/2021 Time: 14:48 Bed 4 Private MD: ED Physician Ramon Baker HPI: 08/11 17:08 This 66 yrs old Female presents to ER via Ambulatory with complaints of Chest Pain > 30 jr8 y/o. 17:08 The patient or guardian reports chest pain that is located primarily in the substernal jr8 area. Onset: acutely, yesterday. The pain does not radiate. Associated signs and symptoms: Pertinent positives: nausea, shortness of breath. The chest pain is described as a pressure. Duration: The patient or guardian reports a single episode, that is still ongoing. Modifying factors: The symptoms are alleviated by nothing. the symptoms are aggravated by nothing. Severity of pain: At its worst the pain was moderate in the emergency department the pain is unchanged. It is unknown whether or not the patient has had similar symptoms in the past. The patient has not recently seen a physician. Historical: - Allergies: 15:08 Bactrim DS; restrepo 15:08 butorphanol tartrate; restrepo 15:08 Fentanyl; restrepo 15:08 Reglan; restrepo 15:08 Stadol; restrepo 15:08 sulfamethoxazole (bulk); restrepo 15:08 TRIMETHOPRIM; restrepo - PMHx: 15:08 Anxiety; Atrial Fib; Bipolar disorder; Chronic pain; COPD; esophageal varices; restrepo Hepatitis; HIV; Hypertension; Migraines; Panic Attacks; - PSHx: 15:08 Appendectomy; Bilateral shoulder repair; hernia repair; Cholecystectomy; R wrist SX; restrepo - Immunization history:: Adult Immunizations up to date. - Social history:: Smoking status: Patient/guardian denies using tobacco, the patient reports quitting approximately 2 years ago. ROS: 17:08 Eyes: Negative for injury, pain, redness, and discharge, ENT: Negative for injury, jr8 pain, and discharge, Neck: Negative for injury, pain, and swelling, Back: Negative for injury and pain, MS/Extremity: Negative for injury and deformity, Skin: Negative for injury, rash, and discoloration, Neuro: Negative for headache, weakness, numbness, tingling, and seizure. 17:08 Cardiovascular: Positive for chest pain, Negative for edema, orthopnea, palpitations, paroxysmal nocturnal dyspnea. 17:08 Respiratory: Positive for shortness of breath, wheezing. 17:08 Abdomen/GI: Positive for nausea, Negative for abdominal pain, vomiting, diarrhea. Exam: 17:08 Constitutional: This is a well developed, well nourished patient who is awake, alert, jr8 and in no acute distress. Neck: Trachea midline, no thyromegaly or masses palpated, and no cervical lymphadenopathy. Supple, full range of motion without nuchal rigidity, or vertebral point tenderness. No Meningismus. Cardiovascular: Regular rate and rhythm with a normal S1 and S2. No gallops, murmurs, or rubs. Normal PMI, no JVD. No pulse deficits. Abdomen/GI: Soft, non-tender, with normal bowel sounds. No distension or tympany. No guarding or rebound. No evidence of tenderness throughout. Back: No spinal tenderness. No costovertebral tenderness. Full range of motion. Skin: Warm, dry with normal turgor. Normal color with no rashes, no lesions, and no evidence of cellulitis. MS/ Extremity: Pulses equal, no cyanosis. Neurovascular intact. Full, normal range of motion. Neuro: Awake and alert, GCS 15, oriented to person, place, time, and situation. Cranial nerves II-XII grossly intact. Motor strength 5/5 in all extremities. Sensory grossly intact. 17:08 Respiratory: the patient does not display signs of respiratory distress, Respirations: normal, Breath sounds: wheezing: expiratory that is mild, is heard in the right upper lobe and right middle lobe. Vital Signs: 15:07 BP 115 / 81; Pulse 73; Resp 18; Temp 97.4(O); Pulse Ox 97% on R/A; Weight 90.26 kg; restrepo Height 5 ft. 4 in. (162.56 cm); 18:00 BP 180 / 93; Pulse 68; Resp 24; Pulse Ox 95% on 2 lpm NC; jg9 18:30 BP 168 / 85; Pulse 67; Resp 20 S; Pulse Ox 92% on 2 lpm NC; jg9 15:07 Body Mass Index 34.16 (90.26 kg, 162.56 cm) restrepo MDM: 16:34 Patient medically screened. jr8 18:55 The patient was given aspirin in the Emergency Department. Data reviewed: vital signs, [facility] nurses notes, old medical records, lab test result(s), EKG, radiologic studies, plain films. Data interpreted: Pulse oximetry: on room air is 95 %. Interpretation: normal. Counseling: I had a detailed discussion with the patient and/or guardian regarding: the historical points, exam findings, and any diagnostic results supporting the discharge/admit diagnosis, lab results, radiology results, the need for outpatient follow up, a family practitioner, to return to the emergency department if symptoms worsen or persist or if there are any questions or concerns that arise at home. ED course: Patient was seen yesterday in the emergency room and evaluated. Labs and imaging was compared from yesterday to today and essentially the same. Both troponins were well within normal limits. EKG without significant changes. Patient in no acute respiratory distress and otherwise hemodynamically stable. Patient did have slight wheezing today. I will put patient on steroids and albuterol for home and needs to continue to follow-up with primary care. If worse knows to come back. Patient good plan at this time.. 08/11 17:00 Order name: Basic Metabolic Panel; Complete Time: 18:23 [facility] 08/11 17:00 Order name: CBC with Diff; Complete Time: 17:52 [facility] 08/11 17:00 Order name: Magnesium; Complete Time: 18:23 [facility] 08/11 17:00 Order name: NT PRO-BNP; Complete Time: 18:23 [facility] 08/11 17:00 Order name: PT-INR; Complete Time: 17:52 [facility] 08/11 17:00 Order name: Troponin HS; Complete Time: 18:23 [facility] 08/11 15:10 Order name: EKG - Nurse/Tech; Complete Time: 15:18 [facility] 08/11 15:49 Order name: XRAY Chest Pa And Lat (2 Views); Complete Time: 16:49 rn 08/11 17:00 Order name: Cardiac monitoring; Complete Time: 18:33 8 08/11 17:00 Order name: IV Saline Lock; Complete Time: 18:04 [facility] 08/11 17:00 Order name: Labs collected and sent; Complete Time: 18:04 [facility] 08/11 17:00 Order name: O2 Per Protocol; Complete Time: 18:04 [facility] 08/11 17:00 Order name: O2 Sat Monitoring; Complete Time: 18:04 jr8 Administered Medications: 18:03 Drug: SOLU-Medrol (methylPrednisoLONE) 125 mg Route: IVP; Site: Other; [facility] 18:32 Follow up: Response: No adverse reaction; Marked relief of symptoms [facility] [place] 18:03 Drug: Albuterol 2.5 mg Route: Inhalation; [facility] 18:32 Follow up: Response: No adverse reaction; Adverse reaction, Physician notified j 18:03 Drug: AtroVENT (ipratropium) Aerosol 0.5 mg Route: Inhalation; [facility] 18:32 Follow up: Response: No adverse reaction j 18:04 Drug: Aspirin Chewable Tablet 324 mg Route: PO; [facility] 18:32 Follow up: Response: No adverse reaction [facility] [place] 18:36 Drug: morphine 4 mg Route: IVP; Site: Other; [facility] [place] 19:12 Follow up: Response: Pain is decreased [facility] Disposition: 08/12 07:03 Co-signature as Attending Physician, Ramon Baker MD. rn Disposition Summary: 08/11/21 18:57 Discharge Ordered Location: Home [facility] Problem: new jr8 Symptoms: have improved jr8 Condition: Stable jr8 Diagnosis - Chest pain, unspecified jr8 - COPD/ Chronic obstructive pulmonary disease with (acute) exacerbation [facility] Followup: [facility] - With: Private Physician - When: 1 - 2 days - Reason: Recheck today's complaints, Continuance of care, Re-evaluation by your physician Discharge Instructions: - Discharge Summary Sheet jr8 - Nonspecific Chest Pain, Adult jr8 - Chronic Obstructive Pulmonary Disease [facility] Forms: - Medication Reconciliation Form 8 - Thank You Letter 8 - Antibiotic Education 8 - Prescription Opioid Use [facility] Prescriptions: - albuterol sulfate 90 mcg/actuation Inhalation HFA aerosol inhaler - inhale 2 puff by INHALATION route every 4-6 hours; 1 Inhaler; Refills: 0, jr8 Product Selection Permitted - Medrol (Niall) 4 mg Oral Tablets, Dose Pack - take 1 tablet by ORAL route as directed - follow package instructions; 1 8 packet; Refills: 0, Product Selection Permitted Signatures: Dispatcher [employer] Ramon Linton MD MD rn Roszak, Josh, PA PA [facility] Karen Lo RN RN [facility] Karen Joseph, RN RN jg9 Miranda-StagerTata RN RN ha Brown, Sophia, PA PA sb3 Corrections: (The following items were deleted from the chart) 08/11 17:09 17:01 Chest Single View+[email or web address] ordered. EDMS EDMS
[2021-08-11 21:10] VITALS: TEMP 97.4
[2021-08-11 21:13] VITALS: BP 168/85; O2SAT 92
--- NOTE | 2021-08-13 07:46 | EKG ---
Test Date: 2021-08-11 Test Time: 15:16:23 Director Clinical Operations: MECHELLE MEASUREMENT RESULTS: Intervals: Rate: 69 MN: 142 QRSD: 104 QT: 460 QTc: 492 [place]: P: 23 MN: 142 QRS: -4 T: 14 INTERPRETIVE STATEMENTS: Normal sinus rhythm Voltage criteria for left ventricular hypertrophy Nonspecific ST and T wave abnormality Prolonged QT Abnormal ECG Compared to ECG 08/10/2021 07:35:25 Prolonged QT interval now present ST (T wave) deviation still present Electronically Signed On 08-13-21 07:41:49 CDT by Per Crane
== END 2021-08-11 19:12 | disposition home or self-care (01) ==
LOC: ER 14:45
DX: J44.1 Chronic obstructive pulmonary disease with (acute) exacerbation (principal); R11.0 Nausea; I10 Essential (primary) hypertension; I48.91 Unspecified atrial fibrillation; F31.9 Bipolar disorder, unspecified; Z21 Asymptomatic human immunodeficiency virus [HIV] infection status; Z88.1 Allergy status to other antibiotic agents; Z88.2 Allergy status to sulfonamides; Z88.5 Allergy status to narcotic agent; Z88.8 Allergy status to other drugs, medicaments and biological substances
CPT/HCPCS: 93005; 85025; 80048; 36415; 83735; 85610; 84484; 83880; 71046; 96375; 96374; 99285; J2930

== ENCOUNTER 2021-08-21 13:42 | Emergency (ER) | payer OTHER ==
--- OUTSIDE RECORDS SUMMARY | 2021-08-21 13:53 | XMS REPORT | Continuity of Care Document ---
:1955 Author Organization [facility] t Address [address] [place] [address] Care Team Providers Name Role Phone Francisco Rahman Primary Care Physician Ashely Attending Clinician Unavailable PANKAJ Attending Clinician Unavailable RONALD Attending Clinician Unavailable [facility] Attending Clinician Unavailable Ronald DHILLON Attending Clinician Ap JENKINS Attending Clinician Doctor Unassigned, Name Attending Clinician Unavailable Prabhu SANCHEZ Attending Clinician Unavailable Luisana Maharaj NP Attending Clinician Yazmin JENKINS Attending Clinician Devin BAGGAGE AND MAIL AGENT, R Attending Clinician Clark SANCHEZ Attending Clinician [...] Policy Number Effective Date Expiration Date S [facility] COMMUNITY PLAN [id number] 2012 ST[employer] [place] 00:00:00 [place] [facility] DUAL [id number] 2020 COMP HMO D SNP 00:00:00 MEDICAID OF [place] [id number] 2020 00:00:00 Problems Condition Condition Condition Status Onset Resolution Last Treating Co mments Source Name Details Category Date Date Treatment Clinician Date Gastropare Gastropare Disease Active Overview : Methodi sis sis 4-[address] 00:00: [facility] note l might be different from the original. Added automatic ally from request for surgery [id number] Dysphagia Dysphagia Disease Active Overview: Methodi 4-[address] 00:00: [facility] 00 note l might be different from the original. Added automatic ally from request for surgery [id number] CCL / EPS Diagnosis Active 2020-10-15 Memoria PVI 3-30 17:07:00 l ABLATION CCL / 00:00: Protivin W/ CARTO / EPS PVI 00 GA [...] (BMI 2-19 ity of 30-39.9) 30-39.9) 00:00: [place] [facility] Anemia Anemia Disease Active 2014-05 Univers 0-03 ity of 00:00: [place] [facility] Hypovolemi Hypovolemi Disease Active 2014-05 U nivers a due to a due to 0-02 ity of hemorrhage hemorrhage [place] [facility] Chest pain Chest pain Disease Active 2014-05 U nivers 0-02 ity of 00:00: [place] [facility] 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:00: [place] shoulder shoulder 00 Medica l arthroplas arthroplas Br anch ty ty Posttrauma Posttrauma Disease Active U nivers tic stress tic stress 09-27 it y of disorder disorder 00:00: [place] [facility] 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 00:00: [place] virus virus 00 Medical (HIV) (HIV) Branch disease disease Bipolar 2 Bipolar 2 Disease Active Uni vers disorder disorder 11-18 ity of 00:00: [place] [facility] Chronic Chronic Disease Active Univers hepatitis hepatitis 11-18 ity of C C 00:00: [place] [facility] Hypertensi Hypertensi Disease Active U nivers on on 11-18 ity of 00:00: [place] [facility] Allergies, Adverse Reactions, Alerts Allergy Allergy Status Severity Reaction(s) Onset Inactive Treating Comm ents Source Name Type Date Date Clinician sulfamet DA Active SV N/V [facility] hoxazole 1-25 Clear 00:00: [address] trimetho DA Active SV [facility] prim 1-25 Clear 00:00: Garcia 00 [facility] codeine DA Active SV N/V [facility] 1-25 Clear 00:00: Garcia [facility] Metoclop Propensi Active [place] ramide [...] Date Stop Date Source Natural father Diabetes [facility] Natural father Other - see comments [facility] Natural [facility] Natural father Hypertension [facility] Natural father Kidney disease Method [facility] Natural mother Cancer [facility] Social History Social Habit Start Date Stop Date Quantity Comments [facility] Alcohol Std Drinks History [facility] Health Alcohol Binge Exposure to Not sure University of SARS-CoV-2 (event) [place] [facility] History of tobacco Smoker Method [facility] use Hospital Alcohol intake 2021-07-14 2021-07-14 Ex-drinker [place] [facility] 00:00:00 00:00:00 (finding) Cigarettes smoked 2020-12-08 2020-12-[address] current (pack per 00:00:00 00:00:00 Hospita l day) - Reported Cigarette 2020-12-08 2020-12-08 [facility] pack-[facility] 00:00:00 00:00:00 Hospital Tobacco use and 2020-10-31 2020-10-31 Smokeless tobacco [facility] exposure 00:00:00 00:00:00 non-user History SDOH 2020-10-31 2020-10-31 1 [facility] Alcohol Frequency 00:00:00 00:00:00 Tobacco Comment 2015-02-14 2015-02-14 Smokes approx 1-2 Un iversity of 00:00:00 00:00:00 cigarettes per [place] [facility] day when she Branch smokes Sex [birth year] [facility] 00:00:00 00:00:00 Smoking Status Start Date Stop Date Source Former smoker 2020-12-08 00:00:00 2020-12-08 00:00:00 [facility] Medications Ordered Filled Start Stop Current Ordering Indication Dosage Frequency Signature Comments Components Source Medication Medication Date Date Medication? Clinician (SIG) Name Name raltegravir Yes [id number] 400mg Take 1 Univers (ISENTRESS) 3-28 tablet by ity of 400 mg 00:00: mouth 2 [place] tablet 00 (two) Medical times Branch daily. raltegravir Yes [id number] 400mg Take 1 Univers (ISENTRESS) 3-28 tablet by ity of 400 mg 00:00: mouth 2 [place] tablet 00 (two) Medical times Branch daily. LORazepam 1 Yes [id number] 1mg Take 1 Univers mg tablet 3-21 tablet by ity o f 00:00: mouth 3 [place] 00 (three) Medical times Branch daily as needed (anxiety). LORazepam 1 Yes [id number] 1mg Take 1 Univers mg tablet 3-21 tablet by ity o f 00:00: mouth 3 [place] 00 (three) Medical times Branch daily as needed (anxiety). LORazepam 1 Yes [id number] 1mg Take 1 Univers mg tablet 3-21 tablet by ity o f 00:00: mouth 3 [place] 00 (three) Medical times Branch daily as needed (anxiety). LORazepam 1 0 Yes [id number] 1mg Take 1 Univers mg tablet 3-21 tablet by ity o f 00:00: mouth 3 [place] 00 (three) Medical times Branch daily as needed (anxiety). raltegravir Yes 400mg Q.5D Take 400 U T (Isentress) 2-22 mg by Health 400 MG 09:09: mouth 2 tablet 52 (two) times a day. LORazepam 1 2021- No [id number] 1mg Take 1 Univers mg tablet 2-21 [...] 00 times a tablet day. buPROPion Yes [id number] 150mg Take 1 U nivers XL 1-24 tablet by ity of (WELLBUTRIN 00:00: mouth [place] XL) 150 mg 00 daily. Medical 24 hr Branch tablet busPIRone 0 Yes [id number] 30mg Take 1 Un matt 30 mg 1-24 tablet by ity of tablet 00:00: mouth 2 [place] 00 (two) Medical times Branch daily. SERTraline 0 Yes [id number] 200mg Take 2 Univers 100 mg 1-24 tablets by ity of tablet 00:00: mouth [place] 00 daily. Medical Branch buPROPion 0 Yes [id number] 150mg Take 1 U nivers XL 1-24 tablet by ity of (WELLBUTRIN 00:00: mouth [place] XL) 150 mg 00 daily. Medical 24 hr Branch tablet busPIRone 0 Yes [id number] 30mg Take 1 Un matt 30 mg 1-24 tablet by ity of tablet 00:00: mouth 2 [place] 00 (two) Medical times Branch daily. SERTraline Yes [id number] 200mg Take 2 Univers 100 mg 1-24 tablets by ity of tablet 00:00: mouth [place] 00 daily. Medical Branch buPROPion 0 Yes [id number] 150mg Take 1 U nivers XL 1-24 tablet by ity of (WELLBUTRIN 00:00: mouth [place] XL) 150 mg 00 daily. Medical 24 hr Branch tablet busPIRone Yes [id number] 30mg Take 1 Un matt 30 mg 1-24 tablet by ity of tablet 00:00: mouth 2 [place] 00 (two) Medical times Branch daily. SERTraline Yes [id number] 200mg Take 2 Univers 100 mg 1-24 tablets by ity of tablet 00:00: mouth [place] 00 daily. Medical Branch buPROPion Yes [id number] 150mg Take 1 U nivers XL 1-24 tablet by ity of (WELLBUTRIN 00:00: mouth [place] XL) 150 mg 00 daily. Medical 24 hr Branch tablet busPIRone Yes [id number] 30mg Take 1 Un matt 30 mg 1-24 tablet by ity of tablet 00:00: mouth 2 [place] 00 (two) Medical times Branch daily. SERTraline Yes [id number] 200mg Take 2 Univers 100 mg 1-24 tablets by ity of tablet 00:00: mouth [place] 00 daily. Medical Branch LORazepam 1 2021- No [id number] 1mg Take 1 Univers mg tablet 1-24 02-21 tablet by ity of 00:00: 00:00 mouth 3 [place] 00 :00 (three) Medical times Branch daily as needed (anxiety). emtricitabi Yes [id number] Take one Univers ne-tenofovi 1-20 po daily ity of r alafen 00:00: [place] (DESCOVY) 00 Medical tablet Branch emtricitabi 0 Yes [id number] Take one Univers ne-tenofovi 1-20 po daily ity of r alafen 00:00: [place] (DESCOVY) 00 Medical tablet Branch emtricitabi Yes [id number] Take one Univers ne-tenofovi 1-20 po daily ity of r alafen 00:00: [place] (DESCOVY) 00 Medical tablet Branch emtricitabi 2021-0 Yes [id number] Take one Univers ne-tenofovi 1-20 po daily ity of r alafen 00:00: [place] (DESCOVY) 00 Medical tablet Branch raltegravir 0 Yes [id number] 400mg Take 1 Univers (ISENTRESS) 1-12 tablet by ity of 400 mg 00:00: mouth 2 [place] tablet 00 (two) Medical times Branch daily. raltegravir 2021- No [id number] 400mg Take 1 Univers (ISENTRESS) 1-12 03-28 tablet by it y of 400 mg 00:00: 00:00 mouth 2 [place] tablet 00 :00 (two) Medical times Branch daily. raltegravir 2021- No [id number] 400mg Take 1 Univers (ISENTRESS) 1-12 -28 tablet by it y of 400 mg 00:00: 00:00 mouth 2 [place] tablet 00 :00 (two) Medical times Branch daily. metoprolol 0 Yes [id number] Take 1 [facility] tartrate 7-26 tablet Health (Lopressor) 00:00: (100 mg 100 MG 00 total) by tablet mouth 2 (two) times a day AND 0.5 tablets (50 mg total) every night. metoprolol 0 Yes [id number] Take 1 [facility] tartrate 7-26 tablet Health [...] (affected area in groin) hydrALAZINE Yes 50mg Q.[id number] Take 50 mg Methodi (APRESOLINE 7-[id number] ) 50 MG [...] mouth Hospita tablet 25 daily. l nystatin-tr 2020-0 Yes [id number] Apply to [facility] iainolone 7-06 area(s) 3 ity of cream 00:00: (three) [place] 00 times Medical daily. Branch nystatin-tr 2020-0 Yes [id number] Apply to [facility] iainolone 7-06 area(s) 3 ity of cream 00:00: (three) [place] 00 times Medical daily. Branch nystatin-tr 2020-0 Yes [id number] [facility] ity of cream 00:00: (three) [place] 00 times Medical daily. Branch nystatin-tr 2020-0 Yes [id number] [facility] 3 ity of cream 00:00: (three) [place] 00 times Medical daily. Branch budesonide- 2020-0 2020- No 1{puff} QD Inhale 1 Methodi formoteroL 6-25 06-[address] (SYMBICORT) 19:37: 00:00 morning. H ospita 160-4.5 02 :00 l mcg/actuati on inhaler hydrALAZINE Yes [id number] 50mg Q.[id number] Take 1 [facility] (Apresoline 6-11 [id number] tablet (50 Health ) 50 MG 00:00: 3D mg total) tablet 00 by mouth 3 (three) times a day. hydrALAZINE Yes [id number] 50mg Q.[id number] Take 1 [facility] (Apresoline 6-11 [id number] tablet (50 Health ) 50 MG 00:00: 3D mg total) tablet 00 by mouth 3 (three) times a day. Breztri 0 Yes [facility] Aerosphere 6-09 Health 160-9-4.8 00:00: [...] sertraline Yes 200mg 200 mg. UT (Zoloft) 530 Health 100 MG 00:00: tablet 00 lisinopril Yes UT 40 MG 5-30 Health tablet 00:00: 00 sertraline 2021- No 200mg 200 mg. UT (Zoloft) 30 - Health 100 MG 00:00: 00:00 tablet 00 :00 mupirocin Yes UT (Bactroban) 28 Health 2 % 00:00: ointment 00 mupirocin Yes [facility] (Bactroban) 528 Health 2 % 00:00: ointment 00 nystatin 2020- No [id number] Q.25D Take 5 mL Methodi (MYCOSTATIN 10-06 [...] ia 4-10 (Same as: l 14:00: Norvasc) Protivin emtricitabi No Notes: Caesar lisa ne 200 MG / 4-10 (Same as: l tenofovir 14:00: Descovy) Herm ariel alafenamide 00 Non-formul 25 MG Oral nancy Tablet [Descovy] pantoprazol No Notes: Caesar lisa e 4-10 Tablet l 14:00: should not Marty 00 be chewed or crushed. (Same as: Protonix) Amiodarone No Notes: Memor ia 4-10 (Same as: l 14:00: Cordarone) Protivin Amlodipine No Notes: Memor ia 4-10 (Same as: l 14:00: Norvasc) Protivin emtricitabi No Notes: Caesar lisa ne 200 MG / 4-10 (Same as: l tenofovir 14:00: Descovy) Herm ariel alafenamide 00 Non-formul 25 MG Oral nancy Tablet [Descovy] Sertraline No Notes: Memor ia 4-10 (Same as: l 14:00: Zoloft) Protivin Sertraline No Notes: Memor ia 4-10 (Same as: l 14:00: Zoloft) Protivin 00 pantoprazol No Notes: Caesar lisa e 4-10 Tablet l 14:00: should not Marty 00 be chewed or crushed. (Same as: Protonix) Amiodarone No Notes: Memor ia 4-10 (Same as: l 14:00: Cordarone) Protivin Amlodipine No Notes: Memor ia 4-10 (Same [...] ia 4-10 (Same as: l 14:00: Norvasc) Protivin 00 emtricitabi No Notes: Caesar lisa ne 200 MG / 4-10 (Same as: l tenofovir 14:00: Descovy) Herm ariel alafenamide 00 Non-formul 25 MG Oral nancy Tablet [Descovy] Sertraline No Notes: Memor ia 4-10 (Same as: l 14:00: Zoloft) Protivin 00 pantoprazol No Notes: Caesar lisa e 4-10 Tablet l 14:00: should not Marty 00 be chewed or crushed. (Same as: Protonix) Amiodarone No Notes: Memor ia 4-10 (Same as: l 14:00: Cordarone) Protivin 00 Amlodipine No Notes: Memor ia 4-10 (Same as: l 14:00: Norvasc) Protivin 00 emtricitabi No Notes: Caesar lisa ne 200 MG / 4-10 (Same as: l tenofovir 14:00: Descovy) Herm ariel alafenamide 00 Non-formul 25 MG Oral nancy Tablet [Descovy] Sertraline No Notes: Memor ia 4-10 (Same as: l 14:00: Zoloft) Protivin 00 pantoprazol No Notes: Caesar lisa e 4-10 Tablet l 14:00: should not Protivin 00 be chewed or crushed. (Same as: Protonix) Amiodarone No Notes: Memor ia 4-10 (Same as: l 14:00: Cordarone) Marty 00 Amlodipine No Notes: Memor ia 4-10 (Same as: l 14:00: Norvasc) Protivin emtricitabi No Notes: Caesar lisa ne 200 MG / 4-10 (Same as: l tenofovir 14:00: Descovy) Herm ariel alafenamide 00 Non-formul 25 MG Oral nancy Tablet [Descovy] Sertraline No Notes: Memor ia 4-10 (Same as: l 14:00: Zoloft) Marty pantoprazol No Notes: Caesar lisa e 4-10 Tablet l 14:00: should not Protivin 00 be chewed or crushed. (Same as: Protonix) Amiodarone No Notes: Memor ia 4-10 (Same as: l 14:00: Cordarone) Marty Amlodipine No Notes: Memor ia 4-10 (Same as: l 14:00: Norvasc) Protivin emtricitabi No Notes: Caesar lisa ne 200 [...] ia 4-10 (Same as: l 14:00: Cordarone) Protivin 00 Sucralfate No Notes: May M emoria 4-10 interfere l 02:00: w/enteral Protivin 00 feeds - Take 1 hr before [...] M emoria 4-10 interfere l 02:00: w/enteral Protivin 00 feeds - Take 1 hr before [...] Memoria 4-10 Same as: l 02:00: Eliquis Protivin 00 Hydralazine No Notes: Caesar lisa Hydrochlori [...] Memoria 4-10 Same as: l 02:00: Eliquis Protivin Hydralazine No Notes: Caesar lisa Hydrochlori 4-10 [...] 0.9% 4-10 (Same as: l 02:00: BD Protivin 00 Posiflush) Eliquis No Notes: Memoria 4-10 [...] 0.9% 4-10 (Same as: l 02:00: BD Protivin 00 Posiflush) Eliquis No Notes: Memoria 4-10 Same as: l 02:00: Eliquis Protivin Hydralazine No Notes: Caesar lisa Hydrochlori 4-10 [...] 0.9% 4-10 (Same as: l 02:00: BD Protivin 00 Posiflush) Eliquis No Notes: Memoria 4-10 [...] not exceed l #3 00:12: 4gm/day of Protivin acetaminop hen. (Same as: Tylenol with Codeine # 3) acetaminoph No Notes: Do M emoria en-codeine 4-10 not exceed l #3 00:12: 4gm/day of Marty acetaminop hen. (Same as: Tylenol with Codeine # 3) acetaminoph No Notes: Do M emoria en-codeine 4-10 not exceed l #3 00:12: 4gm/day of Protivin acetaminop hen. (Same as: Tylenol with Codeine # 3) acetaminoph No Notes: Do M emoria en-codeine 4-10 not exceed l #3 00:12: 4gm/day of Protivin acetaminop hen. (Same as: Tylenol with Codeine # 3) acetaminoph No Notes: Do M emoria en-codeine 4-10 not exceed l #3 00:12: 4gm/day of Protivin 00 acetaminop hen. (Same as: Tylenol with Codeine # 3) acetaminoph No Notes: Do M emoria en-codeine 4-10 not exceed l #3 00:12: 4gm/day of Marty acetaminop hen. (Same as: Tylenol with Codeine # 3) Buspirone No Notes: Memori a 08-29 (Same As: l 22:00: BuSpar) Lisinopril No 40 mg, 1 Mem oria 4- tab, l 22:00: Route: PO, Protivin Drug form: TAB, BID, Dosing Weight 97.273, [...] 4- (Same As: l 22:00: BuSpar) Lisinopril 2021-0 [...] tab, l Tablet 22:00: Route: PO, Skylar [[facility]] Drug form: TAB, BID, Dosing Weight [...] tartrate 4-09 tab, l 22:00: Route: PO, Protivin 00 Drug form: TAB, BID, Dosing Weight [...] tartrate 4-09 tab, l 22:00: Route: PO, Protivin 00 Drug form: TAB, BID, Dosing Weight [...] oria 4-09 tab, l 22:00: Route: PO, Protivin 00 Drug form: TAB, BID, Dosing Weight 97.273, kg, Start date: 08/29/20 17:00:00 CDT, Duration: 30 day, Stop date: 09/28/20 9:00:00 CDT metoprolol 2021-0 No 100 mg, 1 Me moria tartrate 4-09 tab, l 22:00: Route: PO, Protivin Drug form: TAB, BID, Dosing Weight 97.273, [...] oria 4-09 tab, l 22:00: Route: PO, Protivin 00 Drug form: TAB, BID, Dosing Weight 97.273, kg, Start date: 08/29/20 17:00:00 CDT, Duration: 30 day, Stop date: 09/28/20 9:00:00 CDT metoprolol No 100 mg, 1 Me moria tartrate 4-09 tab, l 22:00: Route: PO, Protivin 00 Drug form: TAB, BID, Dosing Weight [...] Notes: Memoria 4-09 (Same l 17:07: as:MORPhin Protivin 00 e Sulfate) Morphine No Notes: Memoria 4-09 (Same l 17:07: as:MORPhin Protivin 00 e Sulfate) Morphine No Notes: Memoria 4-09 (Same l 17:07: as:MORPhin Protivin 00 e Sulfate) Morphine No Notes: Memoria 4-09 (Same l 17:07: as:MORPhin Protivin 00 e Sulfate) Morphine No Notes: Memoria 4-09 (Same l 17:07: as:MORPhin Marty 00 e Sulfate) Morphine No Notes: Memoria 4-09 (Same l 17:07: as:MORPhin Protivin 00 e Sulfate) Morphine No Notes: Memoria [...] ONCE, Stop date: 08/29/20 10:40:00 CDT fentaNYL 2021-0 No Route: IV, Mem oria (ANES) 08-29 Drug form: l 15:40: INJ, ONCE, Marty 00 Stop date: 08/29/20 10:40:00 CDT pantoprazol 1-0 Yes 40 mg = 1 M emoria e 40 mg 4-09 tab, PO, l oral 15:27: Daily, # Protivin enteric 00 30 tab, 0 coated Refill(s), tablet Pharmacy: [facility], 162.56, cm, 08/29/20 5:30:00 CDT, Height, 97.273, kg, 08/29/20 5:30:00 CDT, Weight pantoprazol 1-0 Yes 40 mg = 1 M emoria e 40 mg 4-09 tab, PO, l oral 15:27: Daily, # Protivin enteric 00 30 tab, 0 coated Refill(s), tablet Pharmacy: [facility] 149, 162.56, cm, 08/29/20 5:30:00 CDT, Height, 97.273, kg, 08/29/20 5:30:00 CDT, Weight pantoprazol 1-0 Yes 40 mg = 1 M emoria e 40 mg 4-09 tab, PO, l oral 15:27: Daily, # Marty enteric 00 30 tab, 0 coated Refill(s), tablet Pharmacy: [facility] 149, 162.56, cm, 08/29/20 5:30:00 CDT, Height, 97.273, kg, 08/29/20 5:30:00 CDT, Weight pantoprazol 1-0 Yes 40 mg = 1 M emoria e 40 mg 4-09 tab, PO, l oral 15:27: Daily, # Marty enteric 00 30 tab, 0 coated Refill(s), tablet Pharmacy: [facility], 162.56, cm, 08/29/20 5:30:00 CDT, Height, 97.273, kg, 08/29/20 5:30:00 CDT, Weight pantoprazol 2021-0 Yes 40 mg = 1 M emoria e 40 mg 4-09 tab, PO, l oral 15:27: Daily, # Marty enteric 00 30 tab, 0 coated Refill(s), tablet Pharmacy: [facility], 162.56, cm, 08/29/20 5:30:00 CDT, Height, 97.273, kg, 08/29/20 5:30:00 CDT, Weight pantoprazol 2020-0 Yes 40 mg = 1 M emoria e 40 mg 4-09 tab, PO, l oral 15:27: Daily, # Protivin enteric 00 30 tab, 0 coated Refill(s), tablet Pharmacy: [facility], 162.56, cm, 08/29/20 5:30:00 CDT, Height, 97.273, kg, 08/29/20 5:30:00 CDT, Weight pantoprazol 2020-0 Yes 40 mg = 1 M emoria e 40 mg 4-09 tab, PO, l oral 15:27: Daily, # Marty enteric 00 30 tab, 0 coated Refill(s), tablet Pharmacy: [facility], 162.56, cm, 08/29/20 5:30:00 CDT, Height, 97.273, kg, 08/29/20 5:30:00 CDT, Weight pantoprazol 2020-0 No 40 mg = 1 M emoria e 40 mg 4-09 tab, PO, l oral 15:26: Daily, # Protivin enteric 00 30 tab, 0 coated Refill(s) tablet sucralfate 2020-0 Yes 1 gm = 1 Mem oria 1 g oral 4-09 tab, PO, l tablet 15:26: Q12H, # 28 Ksylar nn 00 tab, 0 Refill(s), Pharmacy: [facility], 162.56, cm, 08/29/20 5:30:00 CDT, Height, 97.273, kg, 08/29/20 5:30:00 CDT, Weight pantoprazol 1-0 No 40 mg = 1 M emoria e 40 mg 4-09 tab, PO, l oral 15:26: Daily, # Protivin enteric 00 30 tab, 0 coated Refill(s) tablet sucralfate 1-0 Yes 1 gm = 1 Mem oria 1 g oral 4-09 tab, PO, l tablet 15:26: Q12H, # 28 Skylar nn 00 tab, 0 Refill(s), Pharmacy: [facility] 149, 162.56, cm, 08/29/20 5:30:00 CDT, [...] Skylar nn 00 tab, 0 Refill(s), Pharmacy: [facility] 149, 162.56, cm, 08/29/20 5:30:00 CDT, [...] Skylar nn 00 tab, 0 Refill(s), Pharmacy: [facility] 149, 162.56, cm, 08/29/20 5:30:00 CDT, [...] Skylar nn 00 tab, 0 Refill(s), Pharmacy: [facility] 149, 162.56, cm, 08/29/20 5:30:00 CDT, [...] Skylar nn 00 tab, 0 Refill(s), Pharmacy: [facility] 149, 162.56, cm, 08/29/20 5:30:00 CDT, Height, 97.273, kg, 08/29/20 5:30:00 CDT, Weight pantoprazol No 40 mg = 1 M emoria e 40 mg 4-09 tab, PO, l oral 15:26: Daily, # Protivin enteric 00 30 tab, 0 coated Refill(s) tablet sucralfate Yes 1 gm = 1 Mem oria 1 g oral 4-09 tab, PO, l tablet 15:26: Q12H, # 28 Skylar nn 00 tab, 0 Refill(s), Pharmacy: [facility] 149, 162.56, cm, 08/29/20 5:30:00 CDT, Height, 97.273, kg, 08/29/20 5:30:00 CDT, Weight Saline No Notes: Memoria Flush 0.9% 4-09 (Same as: l 15:25: BD Protivin 00 Posiflush) Lorazepam No Notes: Memori a 4-09 (Same as: l 15:25: Ativan) Marty 00 Saline No Notes: Memoria Flush 0.9% 4-09 (Same as: l 15:25: BD Protivin 00 Posiflush) Lorazepam No Notes: Memori a [...] 0.9% 4-09 (Same as: l 15:25: BD Protivin 00 Posiflush) Lorazepam No Notes: Memori a 4-09 (Same as: l 15:25: Ativan) Saline No Notes: Memoria Flush 0.9% 4-09 (Same as: l 15:25: BD Marty 00 Posiflush) Lorazepam No Notes: Memori a 4-09 (Same as: l 15:25: Ativan) Saline No Notes: Memoria Flush 0.9% 4-09 (Same as: l 15:25: BD Protivin Posiflush) Lorazepam No Notes: Memori a 4-09 (Same as: l 15:25: Ativan) Isuprel HCl No Route: IV, Memoria (ANES) 0.2 08-29 Drug form: l mg + 15:00: INJ, Protivin 00 Dosing Weight 97.3, kg, Start date: 08/29/20 10:00:00 CDT, Stop date: 08/29/20 11:00:00 CDT Isuprel HCl No Route: IV, Memoria (ANES) 0.2 08-29 Drug form: l mg + 15:00: INJ, Marty Dosing Weight 97.3, kg, Start date: 08/29/20 10:00:00 CDT, Stop date: 08/29/20 11:00:00 CDT Isuprel HCl No Route: IV, Memoria (ANES) 0.2 08-29 Drug form: l mg + 15:00: INJ, Protivin 00 Dosing Weight 97.3, kg, Start date: 08/29/20 10:00:00 CDT, Stop date: 08/29/20 11:00:00 CDT Isuprel HCl 2020-0 No Route: IV, Memoria (ANES) 0.2 08-29 Drug form: l mg + 15:00: INJ, Protivin 00 Dosing Weight 97.3, kg, Start date: 08/29/20 10:00:00 CDT, Stop date: 08/29/20 11:00:00 CDT Isuprel HCl 2020-0 No Route: IV, Memoria (ANES) 0.2 08-29 Drug form: l mg + 15:00: INJ, Protivin 00 Dosing Weight 97.3, kg, Start date: 08/29/20 10:00:00 CDT, Stop date: 08/29/20 11:00:00 CDT Isuprel HCl 2020-0 No Route: IV, Memoria (ANES) 0.2 08-29 Drug form: l mg + 15:00: INJ, Protivin 00 Dosing Weight 97.3, kg, Start date: [...] ONCE, Stop date: 08/29/20 9:29:00 CDT heparin 0 No Route: IV, Caesar [...] 08-29 Route: PO, l 14:01: Drug form: Protivin 00 TAB, ONCE, Dosing Weight 97.273, kg, [...] lisa 08-29 Route: l 14:01: IVP, PRN, Protivin 00 Dosing Weight 97.273, kg, PRN Benzodiaze [...] ia 08-29 Route: l 14:01: IVP, ONCE, Protivin 00 Dosing Weight 97.273, kg, PRN Nausea & Vomiting, Start date: 08/29/20 9:01:00 CDT Labetalol 2021-0 No 10 mg, Memori a 08-29 Route: l 14:01: IVP, Protivin 00 Q5Min, Dosing Weight 97.273, kg, PRN [...] oria ne 08-29 Route: l 14:01: IVP, Protivin 00 Q5Min, Dosing Weight 97.273, kg, PRN Pain Score 7-10, Start date: 08/29/20 9:01:00 CDT, Duration: 4 doses or times, Stop date: Limited # of times Flumazenil 2020-0 No 0.2 mg, Caesar lisa 08-29 Route: l 14:01: IVP, PRN, Protivin 00 Dosing Weight 97.273, kg, PRN Benzodiaze [...] lisa 08-29 Route: l 14:01: IVP, PRN, Protivin 00 Dosing Weight 97.273, kg, PRN Benzodiaze pine Reversal, Initial dose, Start date: 08/29/20 9:01:00 CDT, Duration: 30 day, Stop date: 09/28/20 9:00:00 CDT Naloxone 1-0 No 0.4 mg, Memori a 08-29 Route: l 14:01: IVP, Protivin 00 Q2MIN, Dosing Weight 97.273, kg, PRN Narcotic Reversal, Start date: 08/29/20 9:01:00 CDT, Duration: 8 doses or times, Stop date: Limited # of times Ondansetron 1-0 No 4 mg, Memor ia 08-29 Route: l 14:01: IVP, ONCE, Protivin 00 Dosing Weight 97.273, kg, PRN Nausea & Vomiting, Start date: 08/29/20 9:01:00 CDT Labetalol 2021-0 No 10 mg, Memori a 08-29 Route: l 14:01: IVP, Protivin 00 Q5Min, Dosing Weight 97.273, kg, PRN [...] oria ne 08-29 Route: l 14:01: IVP, Protivin 00 Q5Min, Dosing Weight 97.273, kg, PRN Pain Score 7-10, Start date: 08/29/20 9:01:00 CDT, Duration: 4 doses or times, Stop date: Limited # of times Labetalol 2021-0 No 10 mg, Memori a 08-29 Route: l 14:01: IVP, Protivin 00 Q5Min, Dosing Weight 97.273, kg, PRN Elevated BP, Start date: 08/29/20 9:01:00 CDT, Duration: 5 doses or times, Stop date: Limited # of times Acetaminoph 2021-0 No 1,000 mg, M emoria en 08-29 Route: PO, l 14:01: Drug form: Protivin 00 TAB, ONCE, Dosing Weight 97.273, kg, [...] lisa 08-29 Route: l 14:01: IVP, PRN, Protivin 00 Dosing Weight 97.273, kg, PRN Benzodiaze [...] lisa 08-29 Route: l 14:01: IVP, PRN, Protivin 00 Dosing Weight 97.273, kg, PRN Benzodiaze pine Reversal, Initial dose, Start date: 08/29/20 9:01:00 CDT, Duration: 30 day,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 Outpatient RAUL ChaseWINTER vegaCL [id number] [facility] 05:24:00 05:24:00 Mike 31 [facility] 2021-08-05 2021-08-05 Outpatient WINTER Leal OUTD [id number] [facility] 05:24:00 05:24:00 Mike [id number] [facility] 2021-07-14 2021-07-14 Office KIMBERLEY Lira 6400 1.2.840.114 13 [id number] [place] 08:45:00 09:34:[address] 350.1.13.58 Health 9.2.7.2.686 [id number] 1 2021-07-09 2021-07-09 Telephone Maryjaneporay, UTP 6400 1.2.840.114 [id number] [place] 00:00:00 00:00:[address] 350.1.13.58 Health 9.2.7.2.686 [id number] 1 2021-06-17 2021-06-17 Inpatient RAUL Lund, HCACL INTE.02 [id number] [facility] 10:56:00 14:36:00 Mike [id number] [facility] 2021-06-17 2021-06-17 Inpatient RAUL Lund, HCACL INTE.02 [id number] [facility] 10:56:00 14:36:00 Mike 47 [facility] 2021-06-15 2021-06-15 Orders Doctor 1.2.840.7 [id number] Univers 00:00:00 00:00:00 Only Unassigned, 27192.1.1 ity of [place] 3.104.2.7 [place] .3.656461 Medica l .8 Branch 2021-06-15 2021-06-15 Travel 1.2.840.1 1.2.232.589 4973 7719 Univers 00:00:00 00:00:00 89209.1.1 350.1.13.10 ity of 3.104.2.7 4.[place].7.3.698 [place] .3.074626 084.8 Medica l .8 Branch 2021-06-11 2021-06-11 Refill [place], 1.2.840.3 [id number] 185 Univers 00:00:00 00:00:00 Santiago 10552.1.1 ity of 3.104.2.7 [place] .3.954094 Medica l .8 Branch 2021-06-02 2021-06-02 Telephone East, 1.2.840.7 [id number] 903 [id number] Univers 00:00:00 00:00:00 Santiago 23952.1.1 ity of 3.104.2.7 [place] .3.359852 Medica l .8 Branch 2021-05-29 2021-05-29 Telephone Ronald, 1.2.840.7 [id number] 902 91673 Univers 00:00:00 00:00:00 Santiago 40290.1.1 ity of 3.104.2.7 [place] .3.806227 Medica l .8 Branch 2021-01-19 2021-01-19 Telephone Prabhu, 1.2.840.1 [id number] 2100 [id number] Methodi 00:00:00 00:00:[address] 3.430.2.7 Hospit a .3.514456 l .8 2020-12-12 2020-12-12 Office [facility] 6400 1.2.840.114 12 [id number] 07:42:02 08:18:[address] 350.1.13.58 9.2.7.2.686 [id number] 1 2020-12-09 2020-12-09 Telephone Carol Ann, 1.2.840.1 [id number] Methodi 00:00:00 00:00:00 Sarai Luisana 79534.1.1 316 s t 3.430.2.7 Hospit a .3.070176 l .8 2020-12-08 2020-12-08 [facility], 1.2.840.1 [id number] 2100 [id number] Methodi 12:35:54 23:59:00 Encounter Ray 22189.1.[address] 3.430.2.7 Hospit a .3.195827 l .8 2020-12-08 2020-12-08 [facility], 1.2.840.1 [id number] 80450 99794 Methodi 17:20:50 17:25:[address] 3.430.2.7 Hospit a .3.613845 l .8 2020-12-08 2020-12-08 Office [facility], 1.2.840.1 [id number] 48546 55093 Methodi 09:55:34 11:39:56 Visit Ray 30216.1.[address] 3.430.2.7 Hospit a .3.230277 l .8 2020-12-08 2020-12-08 Travel 1.2.840.1 1.2.851.089 6587 312443 Methodi 00:00:00 00:00:[address] 3.430.2.7 0.2.7.3.698 Ho spita .3.257469 084.8 l .8 2020-12-02 2020-12-02 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 [facility] 1.2.840.114 8 [id number] 10:20:06 10:36:19 Visit HEALTH 350.1.13.10 [facility] 4.2.7.2.686 [id number] 316 2020-11-25 2020-11-25 [facility] 1.2.840.114 [id number] 11:06:30 11:58:14 Visit Robbi R [facility] 350.1.13.10 [facility] 4.2.7.2.686 MATERNAL [phone] & CHILD 107 [facility] 2020-11-25 2020-11-25 [facility] 1.2.285.247 5171 4592 00:00:00 00:00:00 [facility] 350.1.13.10 CLINICS 4.2.7.2.686 [id number] 089 2020-11-25 2020-11-25 Telephone [facility] 1.2.740.524 5337 0821 00:00:00 00:00:00 Rosnda R [employer] DEPOT REP 350.1.13.10 REGIONAL 4.2.7.2.686 MATERNAL [id number] & CHILD 107 [facility] 2020-11-14 2020-11-14 Abstract Clark, 1.2.840.1 [id number] 72963 25775 Methodi 00:00:00 00:00:[address] 3.430.2.7 Hospit a .3.091047 l .8 2020-11-14 2020-11-14 Telephone Rodas, 1.2.840.1 [id number] 2099 [id number] Methodi 00:00:00 00:00:[address] 3.430.2.7 Hospit a .3.488877 l .8 2020-11-07 2020-11-07 Telephone Diana, [facility] 6400 1.2.840.114 124 [id number] 00:00:00 00:00:[address] 350.1.13.58 9.2.7.2.686 [id number] 1 2020-10-27 2020-10-27 Telephone Jeredimasa, 1.2.840.8 [id number] Methodi 00:00:00 00:00:[address] 3.430.2.7 Hospit a .3.994619 l .8 2020-10-24 2020-10-24 Telephone Rodas, 1.2.840.1 [id number] 2099 [id number] Methodi 00:00:00 00:00:[address] 3.430.2.7 Hospit a .3.735771 l .8 2020-10-06 2020-10-12 Telemedici Yazmin, 1.2.840.1 [id number] Methodi 15:26:54 00:08:46 ne Ray 71023.1.[address] 3.430.2.7 Hospit a .3.309083 l .8 2020-09-30 2020-09-30 Telephone Yazmin, 1.2.840.7 [id number] 21 [id number] Methodi 00:00:00 00:00:[address] 3.430.2.7 Hospit a .3.497714 l .8 2020-09-21 2020-09-21 Travel 1.2.840.1 1.2.730.885 1086 587886 Methodi 00:00:00 00:00:[address] 3.430.2.7 0.2.7.3.698 Ho spita .3.377590 084.8 l .8 2020-09-01 2020-09-09 Lab Ramiro Mitchell 1.2.840.1 [id number] 69372 22316 Methodi 10:13:59 01:05:[address] 3.430.2.7 Hospit a .3.388584 l .8 2020-09-06 2020-09-06 [facility] 1.2.840.1 [id number] 06604 45929 Methodi 17:42:30 23:59:[address] 3.430.2.7 Hospit a .3.142989 l .8 2020-09-06 2020-09-06 [facility], 1.2.840.1 [id number] 2099 [id number] Methodi 16:50:00 17:41:00 Encounter Ray 60622.1.[address] 3.430.2.7 Hospit a .3.366498 l .8 2020-09-05 2020-09-05 [facility], 1.2.840.1 [id number] 2099 785971 Methodi 09:17:00 19:45:00 Encounter Ray [address]195.1.[address] 3.430.2.7 Hospit a .3.900486 l .8 2020-09-05 2020-09-05 [facility] 1.2.840.1 [id number] 42846 20736 Methodi 11:30:00 13:15:[address] 3.430.2.7 Hospit a .3.770613 l .8 2020-09-05 2020-09-05 Anesthesia [facility], 1.2.840.1 [id number] 591 [id number] Methodi 11:27:00 12:20:00 Event Lynnettevalentinadarrellthi 23691.1.1 243 s t V. 3.430.2.7 Hospit a .3.922913 l .8 2020-09-05 2020-09-05 Travel 1.2.840.1 1.2.798.942 9716 123455 Methodi 00:00:00 00:00:[address] 3.430.2.7 0.2.7.3.698 Ho spita .3.129088 084.8 l .8 2020-09-04 2020-09-04 Telephone [facility], 1.2.840.1 [id number] Methodi 00:00:00 00:00:00 Sarai Corbin. 48726.1.1 762 s t 3.430.2.7 Hospit a .3.553909 l .8 2020-09-02 2020-09-02 [facility] 1.2.840.4 [id number] Methodi 00:00:00 00:00:00 Sarai Corbin. 25837.1.1 344 s t 3.430.2.7 Hospit a .3.647469 l .8 2020-09-01 2020-09-01 Office [facility], 1.2.840.1 [id number] 21647 19829 Methodi 08:42:53 09:50:51 Visit Ray 39986.1.[address] 3.430.2.7 Hospit a .3.595694 l .8 2020-09-01 2020-09-01 Telephone [facility], 1.2.840.3 [id number] 21 [id number] Methodi 00:00:00 00:00:[address] 3.430.2.7 Hospit a .3.414878 l .8 2020-09-01 2020-09-01 Travel 1.2.840.1 1.2.429.284 4607 204892 Methodi 00:00:00 00:00:[address] 3.430.2.7 0.2.7.3.698 Ho spita .3.093918 084.8 l .8 2020-08-29 2020-08-30 Bedded [facility] [id number] [address] [facility] 10:20:00 14:10:00 Outpatient r Protivin 00 l [facility] 2020-08-29 2020-08-30 Outpatient HEMATPOUR, [facility] CAR 7500 [facility] 05:20:00 09:10:00 BEVERLY 2020-08-27 2020-08-27 [facility], 1.2.840.1 [id number] 2100 [id number] Methodi 09:55:15 23:59:00 Encounter Ray [address]12.1.[address] 3.430.2.7 Hospit a .3.222855 l .8 2020-08-27 2020-08-27 Travel 1.2.840.1 1.2.606.289 4298 098428 Methodi 00:00:00 00:00:[address] 3.430.2.7 0.2.7.3.698 Ho spita .3.148909 084.8 l .8 2020-08-21 2020-08-21 Travel 1.2.840.1 1.2.618.740 0615 333272 Methodi 00:00:00 00:00:[address] 3.430.2.7 0.2.7.3.698 Ho spita .3.851653 084.8 l .8 2020-08-19 2020-08-19 Telephone Meli, 1.2.840.1 [id number] 192 [id number] Methodi 00:00:00 00:00:[address] 3.430.2.7 Hospit a .3.588233 l .8 2020-08-19 2020-08-19 Travel 1.2.840.1 1.2.858.855 3695 684426 Methodi 00:00:00 00:00:[address] 3.430.2.7 0.2.7.3.698 Ho spita .3.219230 084.8 l .8 2020-08-18 2020-08-18 Orders Carol Ann, 1.2.840.9 [id number] 2 [id number] Methodi 00:00:00 00:00:00 Only Sarai Lieberman 67678.1.1 410 s t 3.430.2.7 Hospit a .3.793190 l .8 2020-08-18 2020-08-18 Travel 1.2.840.1 1.2.565.642 9918 296954 Methodi 00:00:00 00:00:[address] 3.430.2.7 0.2.7.3.698 Ho spita .3.127360 084.8 l .8 2020-08-15 2020-08-15 Abstract Clark 1.2.840.1 [id number] 77923 41992 Methodi 00:00:00 00:00:[address] 3.430.2.7 Hospit a .3.958713 l .8 2020-07-02 2020-08-06 Clinical 1.2.840.1 [id number] 79662 Methodi 10:40:46 01:45:[address] 3.430.2.7 Hospit a .3.732926 l .8 2020-07-30 2020-07-30 Travel 1.2.840.1 1.2.066.769 5035 577333 Methodi 00:00:00 00:00:[address] 3.430.2.7 0.2.7.3.698 Ho spita .3.185464 084.8 l .8 2020-07-28 2020-07-28 Office Yazmin, 1.2.840.1 [id number] 68601 Methodi 08:35:45 10:11:52 Visit Ray 73754.1.[address] 3.430.2.7 Hospit a .3.109019 l .8 2020-07-28 2020-07-28 Telephone Rodas, 1.2.840.1 [id number] 2100 567420 Methodi 00:00:00 00:00:[address] 3.430.2.7 Hospit a .3.350723 l .8 2020-07-28 2020-07-28 Travel 1.2.840.1 1.2.014.406 5600 372576 Methodi 00:00:00 00:00:[address] 3.430.2.7 0.2.7.3.698 Ho spita .3.408829 084.8 l .8 2020-07-25 2020-07-25 Telephone Carol Ann, 1.2.840.5 [id number] Methodi 00:00:00 00:00:00 Sarai Lieberman 57643.1.1 314 s t 3.430.2.7 Hospit a .3.560732 l .8 2020-07-25 2020-07-25 Travel 1.2.840.1 1.2.365.387 3949 490626 Methodi 00:00:00 00:00:[address] 3.430.2.7 0.2.7.3.698 Ho spita .3.014071 084.8 l .8 2020-07-23 2020-07-23 Clinical Tori, 1.2.840.1 [id number] 22490 60667 Methodi 08:39:40 08:44:40 Support Hoang 46126.1.[address] P. 3.430.2.7 Hospit a .3.659652 l .8 2020-07-23 2020-07-23 Travel 1.2.840.1 1.2.802.224 6734 269231 Methodi 00:00:00 00:00:[address] 3.430.2.7 0.2.7.3.698 Ho spita .3.193273 084.8 l .8 2020-07-11 2020-07-11 Travel 1.2.840.1 1.2.614.575 6220 196703 Methodi 00:00:00 00:00:[address] 3.430.2.7 0.2.7.3.698 Ho spita .3.120222 084.8 l .8 2020-07-02 2020-07-02 [facility] 1.2.840.1 [id number] Methodi 00:00:00 00:00:[address] 3.430.2.7 Hospit a .3.806463 l .8 2020-07-02 2020-07-02 Travel 1.2.840.1 1.2.966.254 5515 513197 Methodi 00:00:00 00:00:[address] 3.430.2.7 0.2.7.3.698 Ho spita .3.638157 084.8 l .8 2020-06-23 2020-06-23 Office [facility], 1.2.840.1 [id number] 84713 20224 Methodi 09:36:17 11:00:44 Visit Ray 52078.1.[address] 3.430.2.7 Hospit a .3.400396 l .8 2020-06-23 2020-06-23 Telephone Rodas, 1.2.840.1 [id number] 2100 013269 Methodi 00:00:00 00:00:[address] 3.430.2.7 Hospit a .3.693355 l .8 2020-06-23 2020-06-23 Travel 1.2.840.1 1.2.938.525 4194 491668 Methodi 00:00:00 00:00:[address] 3.430.2.7 0.2.7.3.698 Ho spita .3.753612 084.8 l .8 2020-06-09 2020-06-09 [facility], 1.2.840.3 [id number] Methodi 00:00:00 00:00:[address] 3.430.2.7 Hospit a .3.887217 l .8 2020-06-06 2020-06-06 Refill Quinn, 1.2.840.1 [id number] 651835 8118 Methodi 00:00:00 00:00:00 Gabinocoral RodriguezChelsieKristenChelsie 81794.1.[address] 3.430.2.7 Hospit a .3.319507 l .8 2020-06-03 2020-06-03 Telephone [facility], 1.2.840.7 [id number] Methodi 00:00:00 00:00:[address] 3.430.2.7 Hospit a .3.290056 l .8 2020-06-02 2020-06-02 Telephone [facility], 1.2.840.4 [id number] Methodi 00:00:00 00:00:[address] 3.430.2.7 Hospit a .3.824795 l .8 2020-05-13 2020-05-13 Orders Provider, 1.2.840.1 [id number] 2100 223583 Methodi 00:00:00 00:00:00 Only Historical 02917.1.1 108 s t 3.430.2.7 Hospit a .3.358054 l .8 2020-05-09 2020-05-09 Telephone [facility], 1.2.840.1 [id number] Methodi 00:00:00 00:00:00 Sarai Lieberman 19338.1.1 660 s t 3.430.2.7 Hospit a .3.556614 l .8 2020-05-09 2020-05-09 Telephone [facility], 1.2.840.1 [id number] Methodi 00:00:00 00:00:[address] 3.430.2.7 Hospit a .3.129209 l .8 2020-05-08 2020-05-08 Telephone [facility], 1.2.840.9 [id number] Methodi 00:00:00 00:00:[address] 3.430.2.7 Hospit a .3.868920 l .8 2020-05-07 2020-05-07 Telephone [facility], 1.2.840.5 [id number] Methodi 00:00:00 00:00:[address] 3.430.2.7 Hospit a .3.534788 l .8 2020-05-05 2020-05-05 Telephone [facility], 1.2.840.4 [id number] Methodi 00:00:00 00:00:[address] 3.430.2.7 Hospit a .3.745562 l .8 2020-04-25 2020-05-03 [facility], 1.2.840.1 [id number] 2100 865777 Methodi 17:33:00 13:39:00 Encounter Ray 96832.1.[address] 3.430.2.7 Hospit a .3.457172 l .8 2020-04-28 2020-04-28 Anesthesia Tomas Pinon 1.2.840.1 [id number] Methodi 13:38:00 19:40:00 Event Justine Catalan 19689.1.[address] 3.430.2.7 Hospit a .3.349592 l .8 2020-04-28 2020-04-28 Surgery [facility] 1.2.840.1 [id number] 90377 01033 Methodi 13:00:00 17:10:[address] 3.430.2.7 Hospit a .3.273803 l .8 2020-04-25 2020-04-25 [facility], 1.2.840.1 [id number] 2100 057609 Methodi 10:00:00 17:32:00 Encounter Ray [address]50.1.[address] 3.430.2.7 Hospit a .3.411363 l .8 2020-04-25 2020-04-25 Office Yazmin, 1.2.840.1 [id number] 74239 92660 Methodi 11:43:50 13:44:26 Visit Ray 89907.1.[address] 3.430.2.7 Hospit a .3.412893 l .8 2020-04-25 2020-04-25 Travel 1.2.840.1 1.2.264.966 5835 065304 Methodi 00:00:00 00:00:[address] 3.430.2.7 0.2.7.3.698 Ho spita .3.652987 084.8 l .8 2020-04-24 2020-04-24 [facility], 1.2.840.1 [id number] 2 [id number] Methodi 00:00:00 00:00:00 Surgery Sarai Corbin. 87339.1.1 524 s t 3.430.2.7 Hospit a .3.523195 l .8 2020-04-22 2020-04-22 Telephone Meli, 1.2.840.1 [id number] 313 [id number] Methodi 00:00:00 00:00:[address] 3.430.2.7 Hospit a .3.836376 l .8 2020-04-22 2020-04-22 Travel 1.2.840.1 1.2.194.456 8059 036397 Methodi 00:00:00 00:00:[address] 3.430.2.7 0.2.7.3.698 Ho spita .3.808050 084.8 l .8 2020-04-21 2020-04-21 Emergency OniAmber 1.2.840.1 [id number] 2 [id number] Methodi 06:51:00 10:43:[address] 3.430.2.7 Hospit a .3.260933 l .8 2020-04-21 2020-04-21 Orders Meisenbach, 1.2.840.1 [id number] Methodi 00:00:00 00:00:00 Only Sarai Corbin. 60425.1.1 550 s t 3.430.2.7 Hospit a .3.588745 l .8 2020-04-16 2020-04-16 Telephone Meisenbach, 1.2.840.1 [id number] Methodi 00:00:00 00:00:00 Sarai Corbin. 84418.1.1 673 s t 3.430.2.7 Hospit a .3.423455 l .8 2020-04-10 2020-04-10 Telephone Jeredimasmaria elena, 1.2.840.9 [id number] Methodi 00:00:00 00:00:[address] 3.430.2.7 Hospit a .3.050994 l .8 2020-04-07 2020-04-07 Telephone Nahum, 1.2.840.1 [id number] 2099 [id number] Methodi 00:00:00 00:00:[address] 3.430.2.7 Hospit a .3.308870 l .8 2020-04-01 2020-04-01 Orders Provider, 1.2.840.1 [id number] 2099 738779 Methodi 00:00:00 00:00:00 Only Historical 05835.1.1 049 s t 3.430.2.7 Hospit a .3.655133 l .8 2020-03-31 2020-03-31 Travel 1.2.840.1 1.2.120.838 5995 460943 Methodi 00:00:00 00:00:[address] 3.430.2.7 0.2.7.3.698 Ho spita .3.111737 084.8 l .8 2020-03-27 2020-03-27 Telephone Paula, Min 1.2.840.7 [id number] Methodi 00:00:00 00:00:[address] 3.430.2.7 Hospit a .3.178272 l .8 Results Test Description Test Time Test Comments Results Result Comments Source Novel Coronavirus 2019 Inhouse 2021-08-03 18:08:00 Test Item Value Reference Range Interpretation Comme nts Novel Coronavirus 2018 Negative Negative Posit bruno results are indicative of the Inhouse (test code = presenc e xoLGEP-FvZ-6 RNA, clinical COVNONPUI) correlation wit h patient [...] qualitative detection of nucleic acid s from usrEWRI-XsO-9 virus and diagn osis of SARS-CoV-2 virusinfection. It is an Emergency Use Authorization ( EUA) testauthorized by the [place] FDA. BASIC METABOLIC [id number] 09:37:00 Test Item Value Reference Range Interpretation [...] code = 9.0 mg/dL 8.0-10.5 N CA) CBC W/AUTO [id number] 09:32:00 Test Item Value Reference Range Interpretation [...] DIFF REQUIRED (test code NO = MDIFF) PROTHROMBIN [id number] 09:32:00 Test Item Value Reference Range Interpretation [...] Infarction (t o prevent recurre nt infarct). 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 [facility] - XR CHEST 1 [id number] [facility]:00:00 [facility] 1955 Sex: F FAX: Lele Olivera DO [phone] Fults: St: ADM FAX: Jean Paul Scales [phone] FAX: Bahman Chopra [phone] Name: LIO WATTS [facility] : 1955 Age/S: 66/F [address] [place] [address] Unit #: [id number] Loc: [place] [address] Phys: Bahman Chopra [facility] Acct: [id number] Dis Date: Status:ADM IN PHONE #: [phone] Exam Date: 06/17/2021 1320 FAX #: [phone] Reason: WATCHMAN EXAMS: CPT CODE: [id number] XR CHEST 1 V 31020 PROCEDURE INFORMATION: Exam: XR Chest Examdate and [...] failure/volume loading. 2. Subsegmental atelectasis bilateral. at 1335 Reported and signed by: Lambert Vega M.D. CC: Lele Rahman DO; Mike Lund MD; Bahman Chopra Technologist: RT Taylor(R) Trnscrd Date/Time/By: 06/17/2021 (9200) : By: Susanna Orig Print D/T: S: 06/17/2021 (0433) PAGE 1 Signed ReportCOVID 19 Asymptomatic IH [id number] 12:29:00 Test Item Value Reference Range Interpretation [...] on theamount of vi ethel (antigen) in e sample.This milton t has not been FDA cleare d or approved; the t est hasbeen authori zed by FDA under an Em ergency Use Authorizati on(EUA) for use by labo ratories certified under the CLIA thatmeet the requirements to perform moderate, high or waivedcomplexit y tests. BASIC METABOLIC [id number] 11:37:00 Test Item Value Reference Range Interpretation [...] code = 9.0 mg/dL 8.0-10.5 N CA) [id number] 11:37:00 Test Item Value Reference Range Interpretation Comments PREALBUMIN (test code = PREALB) 24.3 mg/dL 16.0-40.0 N PROTHROMBIN [id number] 11:03:00 Test Item Value Reference Range Interpretation [...] o prevent recurre nt infarct). CBC W/AUTO [id number] 10:59:00 Test Item Value Reference Range Interpretation [...] 0.0-0.1 N NRBC#) - XR CHEST 2 [id number] 00:00:00 [facility] 1955 Sex: F FAX: Lele Olivera DO [phone] Fults: St: PRE FAX: Jean Paul Scales MD [phone] Name: LIO WATTS [facility] : 1955 Age/S: 66/F [address] [place] [address] Blvd Unit #: [id number] Loc: [place] [address] [id number] Dis Date: Status: PRE SDC PHONE #: [phone] Exam Date: 06/16/2021 1120 FAX #: [phone] Reason: PREOP EXAMS: CPT CODE: [id number] XR CHEST 2 V 15741 PROCEDURE INFORMATION: Exam: XR Chest Exam date [...] MD Technologist: RT Andree(R) Trnscrd Date/Time/By: 06/16/2021 (1131) : By: [email or web address] Orig Print D/T: S: 06/16/2021 (1034) PAGE 1 Signed ReportGastrointestinal [id number] 04:35:05 Test Item Value Reference Interpretation Comments [...] Rotavirus PCR (test Not Detected code = 8106308) Salmonella PCR (test Not Detected code = [...] PCR Not Detected (test code = 7124) [facility] [id number] 19:17:40EXAMINATION: XR ABDOMEN 1 VW CLINICAL HISTORY: [...] clips are noted.[id number] [place] [facility] Kqnb7929-99-37 19:41:02EXAMINATION: OR [place] < 1 HOUR C-arm fluoroscopy was requested in OR. Location: [facility] OR room 6 Procedure: EGD WITH BOTOX INJECTION INTO THE PYLORUS, ENDOFLIP, ON TABLE ESOPHAGRAM (N/A ) Start: 1140 End:1222 Fluoro Time: .19sec Dose: 7.8mGy Tech: A.B IMPRESSION: Intraoperative fluoroscopic images. Radiologist was not present during the examination.Separate operative report will be issued by the physician performing the procedure. [id number] Interface, Radiology Results - 10/08/2020 2:44 PM CDT EXAMINATION: OR [place] < 1 HOURC- arm fluoroscopy was requested in OR. Location: [facility] OR room 6 Procedure: EGD WITH BOTOX INJECTION INTO THE PYLORUS, ENDOFLIP, ON TABLE ESOPHAGRAM (N/A ) Start: 1140 End:1222 FluoroTime: .19sec Dose: 7.8mGy Tech: A.BIMPRESSION:Intraoperative fluoroscopic images. Radiologist was not present during the examination.Separate operative report will be issued by the physician performingthe procedure.[id number] HospitalS[facility] 2020-09-08 19:30:47 Test Item Value Reference Range Interpretation Comments Case number (test [id number] code = 7341934) Surgical pathology See link below for PDF report (test code = Lab Report 2255) Result status (test This is Supplemental code = [id number]) [id number] [facility] Jjdoncal5840-78-14 23:06:58EXAMINATION: XR CHEST 1 VW PORTABLE HISTORY: [...] enlarged, similar to prior. Bilateral shoulder arthroplasties. [facility]-[id number] Interface, Radiology Results - 09/06/2020 6:09PM CDT [...] silhouette is enlarged, similar to prior.Bilateral shoulder arthroplasties.[facility]-[id number]. David's Georgetown HospitalYektnkocSfagun0585-10-54 16:47:23Kirit Flood MD 09/05/2020 11:[address]: [...] RSI: Yes Number of Attempts at Approach: [address] [place] [address] 12 oqjn3502-31-71 23:21:56 Test Item Value Reference Range Interpretation [...] T wave abnormality, consider anterior ischemia-Abnormal [facility]- [facility] qualitative LMS0432-10-21 22:48:41 Test Item Value Reference Range Interpretation Comments Interpretation (test Negative results do code = 7086745) not preclude 2019-nCoV infection and should not be used as the sole basis for treatment or other patient management decisions. Negative results must be combined with clinical observations, patient history, and epidemiological information. COVID-19 qualitative Not-Detected Not-Detected RT-PCR result (test code = 43587-4) COVID-19 qualitative See link below for C ase Number: RT-PCR (test code = PDF Lab Report [id number]) [facility]2021-04-09 16:31:00 Test Item Value Reference Range Interpretation Comments POC Activated Clotting Time (test code 153 s = POC Activated Clotting Time) [address]04-09 16:31:00 Test Item Value Reference Range Interpretation Comments POC Activated Clotting Time (test code 153 s = POC Activated Clotting Time) [address]04-09 16:31:00 Test Item Value Reference Range Interpretation Comments POC Activated Clotting Time (test code 153 s = POC Activated Clotting Time) [address]04-09 16:31:00 Test Item Value Reference Range Interpretation Comments POC Activated Clotting Time (test code 153 s = POC Activated Clotting Time) [address]04-09 16:31:00 Test Item Value Reference Range Interpretation Comments POC Activated Clotting Time (test code 153 s = POC Activated Clotting Time) [address]04-09 16:31:00 Test Item Value Reference Range Interpretation Comments POC Activated Clotting Time (test code 153 s = POC Activated Clotting Time) [address]04-09 16:31:00 Test Item Value Reference Range Interpretation Comments POC Activated Clotting Time (test code 153 s = POC Activated Clotting Time) [address]04-09 14:37:00 Test Item Value Reference Range Interpretation Comments POC Activated Clotting Time (test code 454 s = POC Activated Clotting Time) [address]04-09 14:37:00 Test Item Value Reference Range Interpretation Comments POC Activated Clotting Time (test code 454 s = POC Activated Clotting Time) [address]04-09 14:37:00 Test Item Value Reference Range Interpretation Comments POC Activated Clotting Time (test code 454 s = POC Activated Clotting Time) [address]04-09 14:37:00 Test Item Value Reference Range Interpretation Comments POC Activated Clotting Time (test code 454 s = POC Activated Clotting Time) [facility] HospitalBflydvkSYJOPLRMEN9795-83-30 14:37:00 Test Item Value Reference Range Interpretation Comments POC Activated Clotting Time (test code 454 s = POC Activated Clotting Time) [facility] HospitalIgnqrwyCQNMFTIQJU8737-97-14 14:37:00 Test Item Value Reference Range Interpretation Comments POC Activated Clotting Time (test code 454 s = POC Activated Clotting Time) [facility] HospitalFskmbtrRLMBOTZLSE9598-54-24 14:37:00 Test Item Value Reference Range Interpretation Comments POC Activated Clotting Time (test code 454 s = POC Activated Clotting Time) [facility] HospitalElzjybyNJUDMFPVUI2511-78-22 14:13:00 Test Item Value Reference Range Interpretation Comments POC Activated Clotting Time (test code 354 s = POC Activated Clotting Time) [facility] HospitalKdbtkzyKQWCWLKWUN9220-51-67 14:13:00 Test Item Value Reference Range Interpretation Comments POC Activated Clotting Time (test code 354 s = POC Activated Clotting Time) [facility] HospitalOypawdsYIAWCYHWQP6894-10-51 14:13:00 Test Item Value Reference Range Interpretation Comments POC Activated Clotting Time (test code 354 s = POC Activated Clotting Time) [facility] HospitalOtpwpssWDJFVJPSCO5472-01-87 14:13:00 Test Item Value Reference Range Interpretation Comments POC Activated Clotting Time (test code 354 s = POC Activated Clotting Time) [facility] HospitalHqztvtvURCRLNTVYE3348-30-33 14:13:00 Test Item Value Reference Range Interpretation Comments POC Activated Clotting Time (test code 354 s = POC Activated Clotting Time) [facility] HospitalUdyaojxIGSRLTUQWI8811-89-78 14:13:00 Test Item Value Reference Range Interpretation Comments POC Activated Clotting Time (test code 354 s = POC Activated Clotting Time) [facility] HospitalRrfqowvABXXRCIXPC3988-95-86 14:13:00 Test Item Value Reference Range Interpretation Comments POC Activated Clotting Time (test code 354 s = POC Activated Clotting Time) [facility] BANK PRDCHNG4230-64-71 10:37:00Negative (08/29/20 5:37 AM) [facility] RZEFL6274-90-51 10:37:12252Zirbplcl HermannCHEM PANEL 2020-08-29 10:37:0028[facility] HermannCHEM OMBKN5246-12-20 10:37:001.01[facility] HermannCHEM JIIBH7060-80-58 10:37:26221Umhalqgq HermannCHEM SZLCG6868-95-41 10:37:003.8[facility] HermannCHEM SQDEM6635-95-06 10:37:98679Ieqdwucd HermannCHEM GDMHM0705-76-25 10:37:0028[facility] HermannCHEM VCMAZ9475-44-00 10:37:009.8 [facility] HermannCHEM UBLCY3952-16-50 10:37:0011.8[facility] HermannCHEM PANEL 2020-08-29 10:37:0059[facility] HermannCHEM WVJNF2870-72-00 10:37:002.9[facility] HtdqinuMFOPAVBYYG3745-78-11 10:37:006.8[facility] AisrftwMMMOTPKCCO0182-24-10 10:37:004.47[facility] QjelnanJOZRKKGMXG2590-21-99 10:37:0010.6[facility] Protivin STCTDAHEUW6648-01-30 10:37:0034.0[facility] EbmunbaHNDIURRARV2107-52-13 10:37:00 76.1[facility] OnvmgygFIIPJUHCWM4545-90-21 10:37:00 Test Item Value Reference Range Interpretation Comments MCH (test code = MCH) 23.8 pg 27.0-31.0 [facility] RyemkunXZNXAJVBKE2737-43-64 10:37:0031.3[facility] HermannHEMATOLOGY 2020-08-29 10:37:0018.2[facility] UejztvaOROFHSKQKJ4525-43-64 10:37:84002Wtjmzofz KkmwhjbPTGQGWUZMI4123-73-43 10:37:007.5[facility] EzsqjgoTBMJSYJPKT7557-43-27 10:37:00 Test Item Value Reference Range Interpretation Comments PT (test code = PT) 12.8 s 12.0-14.7 [facility] EmuxyjlMZPBHUNWNC6061-51-93 10:37:00 Test Item Value Reference Range Interpretation Comments INR (test code = INR) 0.97 1 0.85-1.17 [facility] FtjcmrpNYUABLLVQB3851-55-97 10:37:00 Test Item Value Reference Range Interpretation Comments PTT (test code = PTT) 25.0 s 22.9-35.8 [facility] IpiajorCGZMUURHEL2672-87-46 10:37:0070.5[facility] HermannHEMATOLOGY 2020-08-29 10:37:0018.8[facility] PwkaockWQWXWWHJYK8291-22-59 10:37:009.5[facility] AiiytnfEZILVXFUFX0423-21-17 10:37:000.9[facility] NafthkrBKHNWGTHOB0792-73-95 10:37:000.3[facility] PmqaiocXNYVEKQWCQ9217-36-48 10:37:004.8[facility] Marty WKNYLVCROX0077-89-53 10:37:001.3[facility] TyynknrNNHLFREOHJ6043-15-55 10:37:000.6 [facility] OwnmrrvHSVLRXNDKF4163-99-98 10:37:000.1[facility] HermannHEMATOLOGY 2020-08-29 10:37:001+ *ABN*(08/29/20 5:37 AM)[facility] JdncqxaKKFGLZTEXH7826-35-94 10:37:00Not Detected (08/29/20 5:37 AM)[facility] HermannBLOOD BANK RESULTS 2020-08-29 10:37:00Negative (08/29/20 5:37 AM)[facility] HermannCHEM NJJOY3757-08-62 10:37:72149Xggvjnzz HermannCHEM RWMWC3124-44-03 10:37:0028[facility] HermannCHEM YBADN1321-93-52 10:37:001.01[facility] HermannCHEM DLTEC8834-50-50 10:37:60019 [facility] HermannCHEM BIHDS6382-07-34 10:37:003.8[facility] HermannCHEM PANEL 2020-08-29 10:37:93756Genenuok HermannCHEM YTJSN7903-61-16 10:37:0028[facility] HermannCHEM OVVLN7613-46-93 10:37:009.8[facility] HermannCHEM QPGWK4039-11-35 10:37:0011.8[facility] HermannCHEM VNOHS4480-06-10 10:37:0059[facility] HermannCHEM AFDBL5233-75-09 10:37:002.9[facility] WxoggwcCPZYSWFHSS0021-27-61 10:37:006.8 [facility] BhwwlpzPHLSNRZNGZ5670-39-79 10:37:004.47[facility] HermannHEMATOLOGY 2020-08-29 10:37:0010.6[facility] PexuhpyJLTCGCESWK8924-79-26 10:37:0034.0[facility] DevqdfvQHJBJMCUOI0088-36-15 10:37:0076.1[facility] LffmzvsYWASJOHUAE2453-91-15 10:37:00 Test Item Value Reference Range Interpretation Comments MCH (test code = MCH) 23.8 pg 27.0-31.0 [facility] EalkufaTVMLWOTKPQ4493-20-88 10:37:0031.3[facility] HermannHEMATOLOGY 2020-08-29 10:37:0018.2[facility] HixogsjDDWNWXOGHG9346-57-67 10:37:55010Xmsbzbdc ExrcuxdUNBILKSNZU7995-07-85 10:37:007.5[facility] VeaawrkVCECMFKMXL3816-24-29 10:37:00 Test Item Value Reference Range Interpretation Comments PT (test code = PT) 12.8 s 12.0-14.7 [facility] MdzrudqLIINRNODLK3960-05-13 10:37:00 Test Item Value Reference Range Interpretation Comments INR (test code = INR) 0.97 1 0.85-1.17 [facility] EpwajuhISYKLSFUOB1724-40-39 10:37:00 Test Item Value Reference Range Interpretation Comments PTT (test code = PTT) 25.0 s 22.9-35.8 [facility] MfxabkvGMQAIEKPRK2791-49-86 10:37:0070.5[facility] HermannHEMATOLOGY 2020-08-29 10:37:0018.8[facility] HhfrlftGBDAIXVOTG3651-68-85 10:37:009.5[facility] KyfatsbTIIZFUQCMN1382-17-71 10:37:000.9[facility] ZshryrcDGOKJAIUZJ0909-97-90 10:37:000.3[facility] VtbsjjdMVAAHFBLAK9551-50-50 10:37:004.8[facility] Protivin DCBYAJYGIQ5693-31-30 10:37:001.3[facility] SinjxjvBTHSEYSTZD1744-31-19 10:37:000.6 [facility] UdakcctTESBCVNEBX2409-36-14 10:37:000.1[facility] HermannHEMATOLOGY 2020-08-29 10:37:001+ *ABN*(08/29/20 5:37 AM)[facility] OyogikjCHVVYORFAY2142-47-77 10:37:00Not Detected (08/29/20 5:37 AM)[facility] HermannBLOOD BANK RESULTS 2020-08-29 10:37:00Negative (08/29/20 5:37 AM)[facility] HermannCHEM DSGDV0950-53-92 10:37:50782Ampebwnd HermannCHEM YAMFG5397-04-07 10:37:0028[facility] HermannCHEM KIGHX9624-14-16 10:37:001.01[facility] HermannCHEM HXEIN1564-12-61 10:37:94034 [facility] HermannCHEM EYBTU1412-92-51 10:37:003.8[facility] HermannCHEM PANEL 2020-08-29 10:37:34911Hmbcvuab HermannCHEM YGBAB9764-74-53 10:37:0028[facility] HermannCHEM KWNQO3844-62-41 10:37:009.8[facility] HermannCHEM HXCKK4139-54-79 10:37:0011.8[facility] HermannCHEM DAZZH7761-66-29 10:37:0059[facility] HermannCHEM ZLOPK6933-40-45 10:37:002.9[facility] MosiilzFJQKVLUJWX1158-33-32 10:37:006.8 [facility] WwopsnbIKQDAPTNHC3464-21-89 10:37:004.47[facility] HermannHEMATOLOGY 2020-08-29 10:37:0010.6[facility] SbycywxCVVKWUSJGK6284-25-26 10:37:0034.0[facility] WjsoqzxNPQBVUUGDD2338-79-57 10:37:0076.1[facility] OokxpopYRMSKAIEPP7266-33-05 10:37:00 Test Item Value Reference Range Interpretation Comments MCH (test code = MCH) 23.8 pg 27.0-31.0 [facility] QfblpwrMLRZLJHKXF4940-27-84 10:37:0031.3[facility] HermannHEMATOLOGY 2020-08-29 10:37:0018.2[facility] SrcxvtvZAYEYHMBAF6566-71-07 10:37:52655Cuzdoknx KpbsetfXSZNIZLYRN9563-80-90 10:37:007.5[facility] QktidnhFFFPTDRXLP7430-38-64 10:37:00 Test Item Value Reference Range Interpretation Comments PT (test code = PT) 12.8 s 12.0-14.7 [facility] CnhjqatWWUGCSUSBH3284-41-26 10:37:00 Test Item Value Reference Range Interpretation Comments INR (test code = INR) 0.97 1 0.85-1.17 [facility] QmkesroBFIXTEQWTC6329-18-08 10:37:00 Test Item Value Reference Range Interpretation Comments PTT (test code = PTT) 25.0 s 22.9-35.8 [facility] EalbznsVWWSIOSMMG0672-37-50 10:37:0070.5[facility] HermannHEMATOLOGY 2020-08-29 10:37:0018.8[facility] RgladheOWTMZPFHII8266-81-64 10:37:009.5[facility] DppiyxbOJQYNKLDQX3956-98-89 10:37:000.9[facility] BpxltaaTIARSAIAHS7045-22-62 10:37:000.3[facility] AutnqyqAEPUIJSJLG3095-55-24 10:37:004.8[facility] Marty RUIARRNUDS6912-95-61 10:37:001.3[facility] DdkcsmpGEMYATPIKC0174-80-78 10:37:000.6 [facility] TlygovbRNCJKCTYXP9143-71-03 10:37:000.1[facility] HermannHEMATOLOGY 2020-08-29 10:37:001+ *ABN*(08/29/20 5:37 AM)[facility] GhmkwhsACPQQNJODC8892-33-34 10:37:00Not Detected (08/29/20 5:37 AM)[facility] HermannBLOOD BANK RESULTS 2020-08-29 10:37:00Negative (08/29/20 5:37 AM)[facility] HermannCHEM GNXNJ9778-60-04 10:37:86167Kpbmeibf HermannCHEM YDYNV0649-22-50 10:37:0028[facility] HermannCHEM XQPCV5855-29-78 10:37:001.01[facility] HermannCHEM XORXD1688-23-51 10:37:16653 [facility] HermannCHEM HQBUI7660-77-37 10:37:003.8[facility] HermannCHEM PANEL 2020-08-29 10:37:01926Xaxklzie HermannCHEM KPCYI2812-26-38 10:37:0028[facility] HermannCHEM COUAF5313-63-04 10:37:009.8[facility] HermannCHEM HVHNC6648-14-88 10:37:0011.8[facility] HermannCHEM ZVDGP1686-62-27 10:37:0059[facility] HermannCHEM YKEJD9339-44-92 10:37:002.9[facility] ZhytkskIXHBSMZWEA8972-30-75 10:37:006.8 [facility] BbkyrfpRYKWBJIQTZ7459-28-79 10:37:004.47[facility] HermannHEMATOLOGY 2020-08-29 10:37:0010.6[facility] ObmlvmjNTYRJTWPXS8470-59-55 10:37:0034.0[facility] QdnrkkfMATLZFRDJC1673-88-84 10:37:0076.1[facility] UzjbcjeFJLVQSSNBZ9154-40-27 10:37:00 Test Item Value Reference Range Interpretation Comments MCH (test code = MCH) 23.8 pg 27.0-31.0 [facility] ZkfvkfdJCCVSTQWQP2864-27-54 10:37:0031.3[facility] HermannHEMATOLOGY 2020-08-29 10:37:0018.2[facility] VhcesuiFVGUMPMKER8981-18-25 10:37:01160Haovlvrr XjuzquxFEHXXMVICI6331-40-16 10:37:007.5[facility] GcgmxomHBYDHNNSDL7353-74-19 10:37:00 Test Item Value Reference Range Interpretation Comments PT (test code = PT) 12.8 s 12.0-14.7 [facility] HhmphwpWNRYUJFPHC9494-77-38 10:37:00 Test Item Value Reference Range Interpretation Comments INR (test code = INR) 0.97 1 0.85-1.17 [facility] ZjrphvrBDRYPIXGOH7982-11-82 10:37:00 Test Item Value Reference Range Interpretation Comments PTT (test code = PTT) 25.0 s 22.9-35.8 [facility] PubrdciTTWNRLTIVA4192-29-94 10:37:0070.5[facility] HermannHEMATOLOGY 2020-08-29 10:37:0018.8[facility] ZizlxiiWEROWBKNHP6229-60-31 10:37:009.5[facility] UechmpdFGOPDDJTYY4571-30-34 10:37:000.9[facility] CdwijoyZZYUFNXXWR4888-39-40 10:37:000.3[facility] KhqovocFMGOONMTCO3507-51-65 10:37:004.8[facility] Protivin QZHINWSGWJ5640-14-19 10:37:001.3[facility] GlpqtwsVSOEAVAXNB8582-18-05 10:37:000.6 [facility] AlbkpmxZOWHHTCVBM0249-98-19 10:37:000.1[facility] HermannHEMATOLOGY 2020-08-29 10:37:001+ *ABN*(08/29/20 5:37 AM)[facility] BsjhkkqNOXOLLNCJF0688-85-23 10:37:00Not Detected (08/29/20 5:37 AM)[facility] HermannBLOOD BANK RESULTS 2020-08-29 10:37:00Negative (08/29/20 5:37 AM)[facility] HermannCHEM LOBLA3880-11-80 10:37:72838Vjmwihwv HermannCHEM BRDRV1158-85-55 10:37:0028[facility] HermannCHEM SVDGU2855-07-48 10:37:001.01[facility] HermannCHEM IRCXS5285-30-24 10:37:43128 [facility] HermannCHEM XECGK6873-71-11 10:37:003.8[facility] HermannCHEM PANEL 2020-08-29 10:37:22875Kwpcfkjm HermannCHEM XKSQI4252-63-04 10:37:0028[facility] HermannCHEM IXDNH5062-73-21 10:37:009.8[facility] HermannCHEM KNLGD4291-85-13 10:37:0011.8[facility] HermannCHEM JZUPO7463-61-49 10:37:0059[facility] HermannCHEM ZMPEG3052-71-49 10:37:002.9[facility] WhptauzNKMNVWKUQF5277-45-08 10:37:006.8 [facility] FbayqigSGGOUHRFGC2076-38-43 10:37:004.47[facility] HermannHEMATOLOGY 2020-08-29 10:37:0010.6[facility] PhovfbzOZSEGTVBKM9591-76-32 10:37:0034.0[facility] SnuqphjVPLBSDLZON9880-94-84 10:37:0076.1[facility] IumhwoaGUMQASHYFG4642-33-50 10:37:00 Test Item Value Reference Range Interpretation Comments MCH (test code = MCH) 23.8 pg 27.0-31.0 [facility] VnhlnqtOYUWLGKSYC5684-67-71 10:37:0031.3[facility] HermannHEMATOLOGY 2020-08-29 10:37:0018.2[facility] YqtfpclAHSFGIGASO1420-17-50 10:37:39412Xhfzujgh RlpovyvUIOAGRAZYC2131-74-13 10:37:007.5[facility] FqfuagzLPEQZVJEHI8366-54-76 10:37:00 Test Item Value Reference Range Interpretation Comments PT (test code = PT) 12.8 s 12.0-14.7 [facility] NbpaqjoJJWBIZKVLK3442-80-50 10:37:00 Test Item Value Reference Range Interpretation Comments INR (test code = INR) 0.97 1 0.85-1.17 [facility] TxiuwuuXMAGXQQQQR8879-25-18 10:37:00 Test Item Value Reference Range Interpretation Comments PTT (test code = PTT) 25.0 s 22.9-35.8 [facility] YcgkfovKQMMKVFFEY4510-70-44 10:37:0070.5[facility] HermannHEMATOLOGY 2020-08-29 10:37:0018.8[facility] OrcidbhWMAXVOGZVW0419-36-38 10:37:009.5[facility] UwuttupWTVTGPMFGF1260-45-11 10:37:000.9[facility] AxkjeiiYEFBKSSCEN8220-83-51 10:37:000.3[facility] NszwrgxNKBUKYIKRI7512-84-22 10:37:004.8[facility] Marty PSFZDBZBFM9702-47-16 10:37:001.3[facility] EwjinwkRGTIGVJYPS8462-92-79 10:37:000.6 [facility] FlzvwmvDRNUTJPYDS0763-96-98 10:37:000.1[facility] HermannHEMATOLOGY 2020-08-29 10:37:001+ *ABN*(08/29/20 5:37 AM)[facility] RsoonrrLWAMPEYZXV5978-80-43 10:37:00Not Detected (08/29/20 5:37 AM)[facility] HermannBLOOD BANK RESULTS 2020-08-29 10:37:00Negative (08/29/20 5:37 AM)[facility] HermannCHEM DVRYQ0221-46-18 10:37:46006Widsrwbi HermannCHEM QPVII4855-77-56 10:37:0028[facility] HermannCHEM TAAFZ4304-87-19 10:37:001.01[facility] HermannCHEM JCMLA9401-42-65 10:37:18251 [facility] HermannCHEM GCHDE8091-42-96 10:37:003.8[facility] HermannCHEM PANEL 2020-08-29 10:37:82958Tvyfqwak HermannCHEM DVQYJ5934-76-39 10:37:0028[facility] HermannCHEM GNCVE9865-58-16 10:37:009.8[facility] HermannCHEM GJNNY3015-43-43 10:37:0011.8[facility] HermannCHEM PMWDL3591-37-21 10:37:0059[facility] HermannCHEM AEUBP5644-14-78 10:37:002.9[facility] BlmuslcLJSLXQTNYW2981-01-67 10:37:006.8 [facility] GpksjweUALQZGKALX1813-11-37 10:37:004.47[facility] HermannHEMATOLOGY 2020-08-29 10:37:0010.6[facility] GhaiursIAKCCSOYCN4815-34-77 10:37:0034.0[facility] SbjplthVMFEMCFGHS8301-56-63 10:37:0076.1[facility] CzyxmumXQDBXLJCDN0848-21-01 10:37:00 Test Item Value Reference Range Interpretation Comments MCH (test code = MCH) 23.8 pg 27.0-31.0 [facility] TgvunhuAQTAAFODXD6540-10-20 10:37:0031.3[facility] HermannHEMATOLOGY 2020-08-29 10:37:0018.2[facility] PyprljlFAVSHHGCUC3555-26-01 10:37:80537Fniyznth VmyyrtuFBXUHUQKPV3954-16-27 10:37:007.5[facility] DpcyzbgODCVDZPPPM4609-19-61 10:37:00 Test Item Value Reference Range Interpretation Comments PT (test code = PT) 12.8 s 12.0-14.7 [facility] YfzffboUHVJRFAQOQ4438-33-10 10:37:00 Test Item Value Reference Range Interpretation Comments INR (test code = INR) 0.97 1 0.85-1.17 [facility] CinivlgWFDSCARGLU4517-78-61 10:37:00 Test Item Value Reference Range Interpretation Comments PTT (test code = PTT) 25.0 s 22.9-35.8 [facility] ObbcvmpQOHULYFDLA7495-66-79 10:37:0070.5[facility] HermannHEMATOLOGY 2020-08-29 10:37:0018.8[facility] ZroxasyZCHWWFBXEZ3123-81-77 10:37:009.5[facility] VqemngzTDWMVMTYDC1297-95-58 10:37:000.9[facility] XisnpzlMEKRABEUNU1502-74-29 10:37:000.3[facility] RgnbpweHYRMPXKECM5816-25-65 10:37:004.8[facility] Protivin EDNFDWGDBX7006-81-44 10:37:001.3[facility] MmsifqrJFAFXIMCRH3132-31-03 10:37:000.6 [facility] YpotsbzMAPYDUWSHS8769-54-56 10:37:000.1[facility] HermannHEMATOLOGY 2020-08-29 10:37:001+ *ABN*(08/29/20 5:37 AM)[facility] YlwlccwETDBROSKFH4934-93-64 10:37:00Not Detected (08/29/20 5:37 AM)[facility] HermannBLOOD BANK RESULTS 2020-08-29 10:37:00Negative (08/29/20 5:37 AM)[facility] HermannCHEM TNHYR9668-18-46 10:37:64862Fsjelqvi HermannCHEM AVWFN9422-09-57 10:37:0028[facility] HermannCHEM WVLOC3308-76-67 10:37:001.01[facility] HermannCHEM VYKRL9317-80-17 10:37:70629 [facility] HermannCHEM PSMNC2887-19-54 10:37:003.8[facility] HermannCHEM PANEL 2020-08-29 10:37:73794Ipwqasjh HermannCHEM AVXCU7292-33-06 10:37:0028[facility] HermannCHEM DRLQT7332-86-93 10:37:009.8[facility]annCHEM BRNUW0367-61-92 10:37:0011.8[facility]annCHEM OKHWL2629-48-85 10:37:0059[facility]annCHEM AWTHW4666-53-34 10:37:002.9[facility] MtizlzjKEZFBBPBPM9860-41-58 10:37:006.8 [facility] RafubenABFYEUEJXR8306-93-58 10:37:004.47[facility] HermannHEMATOLOGY 2020-08-29 10:37:0010.6[facility] UpdxtmaCKNZUKTZFG8701-90-33 10:37:0034.0[facility] TajewfdBNVACPQWNL3725-88-25 10:37:0076.1[facility] TxzpyeyPXVGWDLRXG2296-76-37 10:37:00 Test Item Value Reference Range Interpretation Comments MCH (test code = MCH) 23.8 pg 27.0-31.0 [facility] EtfroruSYIERVVJXL3538-68-97 10:37:0031.3[facility] HermannHEMATOLOGY 2020-08-29 10:37:0018.2[facility] OvgbmylRLQYUOEOHT3546-73-33 10:37:66774Zsrhbtzj DbkbvlqUZHLIPQNDU2172-30-71 10:37:007.5[facility] JflppzyPITULGUTQZ4381-64-79 10:37:00 Test Item Value Reference Range Interpretation Comments PT (test code = PT) 12.8 s 12.0-14.7 [facility] QqparrmUIOMWDABSZ3093-51-56 10:37:00 Test Item Value Reference Range Interpretation Comments INR (test code = INR) 0.97 1 0.85-1.17 [facility] NczlfosPNNMSIXPRO6937-17-88 10:37:00 Test Item Value Reference Range Interpretation Comments PTT (test code = PTT) 25.0 s 22.9-35.8 [facility] RehaouaRSLWWMDGCD2109-04-56 10:37:0070.5[facility]annHEMATOLOGY 2020-08-29 10:37:0018.8[facility] PtpmmknUIWOBXJNRU9840-57-75 10:37:009.5[facility] SjrjqrcVPIXWDDUJH6661-66-10 10:37:000.9[facility] LxtacweBIJNJVPNQE6516-17-78 10:37:000.3[facility] MmqwokjTBXDAPUJDP4835-83-41 10:37:004.8[facility] Protivin KNNFZDSCFU7514-11-73 10:37:001.3[facility] XuzrrwqOKMYMUTTOT3160-67-06 10:37:000.6 [facility] TjylcigQRLWYCRTAK4647-85-90 10:37:000.1[facility] HermannHEMATOLOGY 2020-08-29 10:37:001+ *ABN*(08/29/20 5:37 AM)[facility] EiiuxunPPOCJISWNL0904-65-69 10:37:00Not Detected (08/29/20 5:37 AM)[facility] 2020-08-27 23:14:39PROCEDURE: NM GASTRIC [...] rate, with complete emptying by 4 hours. [facility]-[id number] Interface, Radiology Results 08/27/2020 6:17 PM CDT [...] rate, with complete emptying by 4 hours. [id number] 2020-05-09 21:24:58 Test Item Value Reference Range Interpretation Comments Misc test HIV-1 RNA QUAL PCR name (test code = 2566) Misc test see note Human Immunodef iciency result (test Virus 1 (HIV-1) by code = 1730) Qualitative Paper Machine Tender-M ediated Amplification ( TMA) [facility] test code [id number] HIV-1 by Qualit ative TMA See Note SOURCE/SPECIMEN PLASMA HIV-1 RNA, QUAL ITATIVE TMA HIV-1 RNA, QL TMA T ACCOUNTS RECEIVABLE ADMINISTRATOR Test Not Performed. Initial testing necessi tated a repeat, but the re was insufficient sa mple to perform repeat. SAMPLE LEFT FOR REPEAT IS 50 uL. NEED 1000 u L TO RUN REPEAT. This te st was performed using the APTIMA(R) HIV-R NA Qualitative Ass ay (Gen-Probe). ======== ======== Te st performed by:[employer] [place] [id number] KYLE (test HIVQL - HIV-1 RNA, code = KYLE) Qualitative TMA (FROZEN)AR Test Code: [id number]: plasma [facility] duplex venous upper xeongxgfl4622-77-46 04:57:00 Vascular Ultrasound Laboratory Upper Extremity Venous Report [id number] [address] Pat.Name: MAC LIOMaria Elena Lozano.ID: [id number] St.Date: 04/30/2020 Refer.MD: ELISEO ARCE MD Exam Time: 5:04:00 PM Study Type:UE Venous Age: 9 1955,65Y Sex: FEMALE Sonogrphr: Dwayne Manio, RVS, RCS Pat. Stat.:Inpatient Room: [place] [address] 2020 Tape Vol: EDGAR, CPT - 4: 50632 Echo Event ID:[id number] Order ID: [id number] Reason for Study:Arm swelling or pain, DVT [...] veins.*Preliminary result reported to ASHLEY Santos @ 2537 on 04/30/20.PHYSICIAN INTERPRETATION Venous examination of the both upper extremities and neck demonstratedno evidence of deep venous thrombosis. Total superficial vein thrombosis of the right basilic vein. FINDINGS: Signed 04/30/2020 10:57 PMFrancis Cabral MD, RPVIIntnathaly, Radiology Results In - 04/30/2020 10:58 PM CST Vascular Ultrasound Laboratory Upper Extremity Venous Report [id number] [address] Pat.Name: LIO WATTS Pat.ID: [id number] .Date: 04/30/2020 Refer.MD: ELISEO ARCE MD Exam Time: 5:04:00 PM Study Type:UE Venous Age: 9 1955,65Y Sex: FEMALE Sonogrphr: IBIS Espinosa, SANKET Pat. Stat.:Inpatient Room: [place] [address] 2020 Tape Vol: JM, CPT - 4: 20198 Echo Event ID:[id number] Order ID: [id number] Reason for Study:Arm swelling or pain, DVT [...] veins.*Preliminary result reported to ASHLEY Santos @ 8156 on 04/30/20.PHYSICIAN INTERPRETATION Venous examination of the both upper extremities and neck demonstratedno evidence of deep venous thrombosis. Total superficial vein thrombosis of the right basilic vein. FINDINGS: ------Signed 04/30/2020 10:57 PMFrancis Cabral MD, [facility] Chest 2 [id number] 22:21:01EXAMINATION: XR CHEST 2 VW CLINICAL HISTORY: [...] cardiopulmonary process or active disease of the chest.[id number] Hospital[facility] Unsuccessful [id number] 17:14:34ANicole zhang RN 04/30/2020 11:25 AMMidline Unsuccessful [...] place a PIV g.20 in lower arm .[facility] Abdomen 1 Vw [id number] 16:20:14EXAMINATION: XR ABDOMEN 1 VW PORTABLE CLINICAL HISTORY: Abdominal pain post op COMPARISON: No prior IMPRESSION:1.Residual barium within the colon throughout. No small bowel obstruction noted. [facility]-2U [id number] Interface, Radiology Results Incoming - 04/30/2020 10:23 AM CST EXAMINATION: XR ABDOMEN 1 VW PORTABLECLINICAL HISTORY: Abdominalpain post opCOMPARISON: No priorIMPRESSION:1.Residual barium within the colon throughout. No smallbowel obstruction noted.[facility]-[id number] Scott & [facility] Center – [id number] 20:57:57Carlee Malloy MD 04/28/2020 2:59 PMAirwayPerformed by: Carlee Malloy MDAuthorized by: Carlee Malloy MD Location: ORUrgency: ElectiveDifficult Airway: No Anesthesiologist: Kvng Malloy, FLORENTINesident/HORSES OR MULES TEAMSTER/AA: Allan Morocho, DOPerformed by: resident/HORSES OR MULES TEAMSTER/AAPreoxygenated qars723% O2: Yes C- spine Precautions Maintained Throughout: [...] No Number of Attempts at Approach: 1 [facility] HospitalTransthoracic Echocardiogram Complete, (w Contrast, Strain and 3D if needed)2020-04-28 00:20:00 Echocardiography Report [address] [place] [address] Pat.Name: LIO WATTS.ID: [id number] St.Date: 04/27/2020 Refer.MD: ELISEO ARCE MD Exam Time: 2:21:00 PM Study Type:Routine Echo Height: 64in Weight: 213lb BSA: 2.01 m2 Age: 9 1955,65Y Sex: FEMALE BP: 128/89 HR: 102 bpm Sonogrphr: SANKET Perkins Pat. Stat.:Inpatient Room: [facility] Study Status:Final Echo Event ID:[id number] Order ID: [id number] Reason for Study:Atrial FibrillationHistory / Clinical:Hypertension Procedures: [...] estimate PA systolic pressure. MEASUREMENTS: 2DParasternal Long [place] Ao An 2.2 cm LVPWd 1 cm [...] 04/27/2020 6:21 PM CST Echocardiography Report [id number] [facility], [place] [address], [place] [address] Pat.Name: LIO WATTS.ID: [id number] .Date: 04/27/2020 Refer.MD: ELISEO ARCE MD Exam Time: 2:21:00 PM Study Type:Routine Echo Height: 64in Weight: 213lb BSA: 2.01 m2 Age: 9 1955,65Y Sex: FEMALE BP: 128/89 HR: 102 bpm Sonogrphr: SANKET Perkins [facility]. Stat.:Inpatient Room: [facility] Study Status:Final Echo Event ID:[id number] Order ID: [id number] Reason for Study:Atrial FibrillationHistory / Clinical:Hypertension Procedures: [...] PA systolic pressure.- MEASUREMENTS: ---- 2DParasternal Long [place] Ao An 2.2 cm LVPWd 1 cm [...] CI 3.1 l/m/m2 Signed 04/27/2020 06:20 PMMoformerly [facility] medical center MarielyNicoBaylor Scott [facility] Esophagram Double [id number] 18:07:12EXAMINATION: FL ESOPHAGRAM DOUBLE CONTRAST CLINICAL HISTORY: [...] herniaCOMPARISON: Limited comparison with chest CT from vember 2019TECHNIQUE: Esophagram was performed with effervescent granules and barium.FLUOROSCOPIC TIME: 1.5 minutes.NUMBER OF IMAGES: 9 fluoroscopic images.IMPRESSION:No strictures. Normal esophageal mucosa.Nonspecific esophageal dysmotility, with mildly delayed esophageal emptying and scatterednonpropulsive tertiary contraction waves.There is a moderately sized type III hiatal hernia. There was mild spontaneous gastroesophageal reflux.[id number]CT [facility] Wo Contrast Abdomen Wo Contrast Pelvis Wo [id number] 15:23:55EXAMINATION: CT CHEST WO CONTRAST ABDOMEN WO [...] chronic and incidental findings as detailed above. [facility]-[id number] Dictated and approved by radiology resi dent/fellow: [...] aorta.4.Additional chronic and incidental findings as detailed above.[facility]-[id number] and approved by doctor of radiology/fellow: Jenna Valenzuela M.D.I, Medhat Flowers Jr., M.D., personally reviewed the images and resident's/fellow's findings and agree with the final report. [facility], GC, TV,PCR, IN [id number] 15:38:00 Test Item Value Reference Range Interpretation Comments FT (test code = CHTR) Not detected (qualifier Not Detected N value) FT (test code = Not detected (qualifier Not Detected N NGONO) value) FT (test code = TRVG) Not detected (qualifier Not Detected N value) URINALYSIS WITH [id number] 10:57:00 Test Item Value Reference Range Interpretation Comments Color (test code = UCOLR) Dk. Yellow Clarity (test code = UCLAR) Hazy Glucose (test code = UGLUC) NEGATIVE NEGATIVE N Bilirubin (test code = UBILI) NEGATIVE NEGATIVE N Ketones (test code = UKET) NEGATIVE NEGATIVE N Specific [place] (test code = 1.025 1.005-1.030 A USPGR) [...]
[2021-08-21 16:09] LABS: Urine Blood Negative (Negative); Urine Glucose Negative (Negative); Urine Protein Negative (Negative)
[2021-08-21 16:28] LABS: Urine Bacteria <20 /HPF (<20); Urine RBC <5 /HPF (NONE SEEN)
[2021-08-21] MEDS ORDERED: ONDANSETRON 4 MG/2 ML VIAL ONE (17:13)
[2021-08-21] MEDS ORDERED: LEVALBUTEROL 1.25 MG/3 ML NEB ONE (17:13)
[2021-08-21] MEDS ORDERED: MORPHINE 4 MG/ML SYR ONE (17:13)
--- NOTE | 2021-08-21 17:35 | RAD REPORT ---
EXAM DESCRIPTION: RAD - Chest Single View - 08/21/2021 3:53 pm CLINICAL HISTORY: CHEST PAIN COMPARISON: Two view chest 08/11/2021 TECHNIQUE: AP portable chest image was obtained 08/21/2021 3:53 pm . FINDINGS: No peripheral mass or consolidation. Low lung volumes, portable technique and body habitus accentuate chest findings. Cardiac silhouette is enlarged. Mild vascular engorgement present. No rashida surable pleural effusion and no pneumothorax. No acute bony abnormality seen. No acute aortic finding s suspected. IMPRESSION: Chest is not substantially different from the short interval comparison. A mild failure or volume overload is questionable.
--- NOTE | 2021-08-21 17:53 | ER ---
Nurse's Notes [facility] Name: Fawn Fleming Age: 66 yrs Sex: Female : 1955 Arrival Date: 08/21/2021 Time: 13:47 Bed 28 Private MD: Diagnosis: Chest pain, unspecified;COPD/ Chronic obstructive pulmonary disease, unspecified Presentation: 08/21 14:18 Chief complaint: Patient states: "My left kidney is hurting me and I've been SOB since ab2 last night."Pt denies chest pain. n/v/d, abdominal pain. Coronavirus screen: Vaccine status: Patient reports receiving the 2nd dose of the covid vaccine. Client denies travel out of the [place] in the last 14 days. At this time, the client does not indicate any symptoms associated with coronavirus-19. Ebola Screen: Patient negative for fever greater than or equal to 101.5 degrees Fahrenheit, and additional compatible Ebola Virus Disease symptoms Patient denies exposure to infectious person. Patient denies travel to an Ebola-affected area in the 21 days before illness onset. No symptoms or risks identified at this time. Risk Assessment: Do you want to hurt yourself or someone else? Patient reports no desire to harm self or others. 14:18 Method Of Arrival: Ambulatory ab2 14:21 Initial Sepsis Screen: Does the patient meet any 2 criteria? No. Patient's initial ab2 sepsis screen is negative. Does the patient have a suspected source of infection? No. Patient's initial sepsis screen is negative. Onset of symptoms is unknown. 14:21 Acuity: BLAYNE 3 ab2 Triage Assessment: 14:20 General: Appears in no apparent distress. uncomfortable, Behavior is cooperative, ab2 anxious, crying. Pain: Complains of pain in left low back. Neuro: No deficits noted. Level of Consciousness is awake, alert, obeys commands, Oriented to person, place, time, situation, Appropriate for age Behavioral Scientist are equal bilaterally Moves all extremities. Gait is steady, Speech is normal, Facial symmetry appears normal. Cardiovascular: No deficits noted. Reports shortness of breath, Heart tones S1 S2 present. Respiratory: Reports shortness of breath Airway is patent Respiratory effort is even, unlabored, Respiratory pattern is regular, symmetrical, Onset: The symptoms/episode began/occurred yesterday, the patient reports symptoms have resolved. : Reports pain in left flank(s). Historical: - Allergies: 14:20 Bactrim DS; ab2 14:20 butorphanol tartrate; ab2 14:20 Fentanyl; ab2 14:20 Reglan; ab2 14:20 Stadol; ab2 14:20 sulfamethoxazole (bulk); ab2 14:20 TRIMETHOPRIM; ab2 - PMHx: 14:20 Anxiety; Atrial Fib; Bipolar disorder; Chronic pain; COPD; esophageal varices; ab2 Hepatitis; HIV; Hypertension; Migraines; Panic Attacks; - PSHx: 14:20 Appendectomy; Bilateral shoulder repair; hernia repair; Cholecystectomy; R wrist SX; ab2 - Immunization history:: Adult Immunizations up to date. - Social history:: Smoking status: Patient denies any tobacco usage or history of. - Family history:: not pertinent. - Hospitalizations: : No recent hospitalization is reported. Screenin:48 Abuse screen: Denies threats or abuse. Denies injuries from another. Nutritional ld1 screening: No deficits noted. Tuberculosis screening: No symptoms or risk factors identified. Fall Risk None identified. Assessment: 15:48 General: Appears. ld1 15:48 General: Appears in no apparent distress. comfortable, Behavior is calm, cooperative, ld1 appropriate for age. Pain: Complains of pain in left low back Pain does not radiate. Pain currently is 8 out of 10 on a pain scale. Quality of pain is described as throbbing. Neuro: Level of Consciousness is awake, alert, obeys commands, Oriented to person, place, time, situation. Cardiovascular: Capillary refill < 3 seconds Patient's skin is warm and dry. Rhythm is regular. Respiratory: Reports shortness of breath at rest on exertion Airway is patent Respiratory effort is even, unlabored, Respiratory pattern is regular, symmetrical, Breath sounds are clear bilaterally. GI: Abdomen is round non-distended. : No signs and/or symptoms were reported regarding the genitourinary system. EENT: No signs and/or symptoms were reported regarding the EENT system. Derm: No signs and/or symptoms reported regarding the dermatologic system. Musculoskeletal: No signs and/or symptoms reported regarding the musculoskeletal system. Vital Signs: 14:21 BP 216 / 95; Pulse 57; Resp 19; Temp 97.9(TE); Pulse Ox 98% on R/A; Weight 93.44 kg; ab2 Height 5 ft. 4 in. (162.56 cm); Pain 10/10; 15:48 BP 157 / 105; Pulse 63; Resp 18; Pulse Ox 96% on R/A; Pain 8/10; ld1 17:51 BP 149 / 99; Pulse 60; Resp 18; Pulse Ox 96% on R/A; ld1 14:21 Body Mass Index 35.36 (93.44 kg, 162.56 cm) ab2 ED Course: 13:47 Patient arrived in ED. as 14:22 Triage completed. ab2 14:22 Arm band placed on right wrist. ab2 14:55 Ramon Baker MD is Attending Physician. rn 15:21 Wanda Rust RN is Primary Nurse. ld1 15:48 Patient has correct armband on for positive identification. Placed in gown. Bed in low ld1 position. Call light in reach. Side rails up X2. monitoring analyst on. Pulse ox on. NIBP on. Door closed. Noise minimized. Warm blanket given. 15:48 No provider procedures requiring assistance completed. ld1 15:55 XRAY Chest (1 view) In Process Unspecified. EDMS 16:40 Inserted saline lock: 24 gauge in left ,using aseptic technique. chest. dh3 18:04 IV discontinued, intact, bleeding controlled, No redness/swelling at site. ld1 Administered Medications: 17:14 Drug: Xopenex (levalbuterol) 1.25 mg Route: Inhalation; ld1 17:50 Follow up: Response: No adverse reaction ld1 17:50 Not Given (unable to get IV access): morphine 4 mg IVP once; RASS on ADMIN: Combtv4, ld1 Very Agttd3, Agttd2, Rstlss1, AlertClm0, Drwsy-1, Lt Sdtn-2, Mod Sdtn-3, Dp Sdtn-4, UnArsble-5 Outcome: 17:52 Discharge ordered by . rn 18:04 Discharged to home ambulatory. ld1 18:04 Condition: stable 18:04 Discharge instructions given to patient, Instructed on discharge instructions, follow up and referral plans. Demonstrated understanding of instructions, follow-up care. 18:04 Patient left the ED. ld1 Signatures: Dispatcher [employer] Radha Cárdenas Roman, MD MD rn Morenita Ash 3 Wanda Rust RN RN davide1 Wilbert Lowe2
--- NOTE | 2021-08-21 17:53 | EDPHYS ---
Physician Documentation [facility] Name: Fawn Fleming Age: 66 yrs Sex: Female : 1955 Arrival Date: 08/21/2021 Time: 13:47 Bed 28 Private MD: ED Physician Ramon Baker HPI: 08/21 16:50 This 66 yrs old Female presents to ER via Ambulatory with complaints of Flank Pain, rn Shortness Of Breath. 16:50 The patient complains of pain in the left mid back. The pain does not radiate. rn 16:50 Onset: The symptoms/episode began/occurred last night. Modifying factors: The symptoms rn are alleviated by nothing. the symptoms are aggravated by movement, palpation/percussion. Associated signs and symptoms: Pertinent negatives: diarrhea, fever, urinary frequency, nausea, vomiting. Severity of pain: At its worst the pain was moderate in the emergency department the pain has improved. The patient has not experienced similar symptoms in the past. The patient has not recently seen a physician. Pt reports left flank and "kidney pain", began last night, assoc with mild sob, no new cough, no chest pain, flank pain worse with movement and palpation/percussion. No urinary symptoms. No fever. NO trauma. . Historical: - Allergies: 14:20 Bactrim DS; ab2 14:20 butorphanol tartrate; ab2 14:20 Fentanyl; ab2 14:20 Reglan; ab2 14:20 Stadol; ab2 14:20 sulfamethoxazole (bulk); ab2 14:20 TRIMETHOPRIM; ab2 - PMHx: 14:20 Anxiety; Atrial Fib; Bipolar disorder; Chronic pain; COPD; esophageal varices; ab2 Hepatitis; HIV; Hypertension; Migraines; Panic Attacks; - PSHx: 14:20 Appendectomy; Bilateral shoulder repair; hernia repair; Cholecystectomy; R wrist SX; ab2 - Immunization history:: Adult Immunizations up to date. - Social history:: Smoking status: Patient denies any tobacco usage or history of. - Family history:: not pertinent. - Hospitalizations: : No recent hospitalization is reported. ROS: 16:50 Constitutional: Negative for fever, chills, and weight loss, Eyes: Negative for injury, rn pain, redness, and discharge, Neck: Negative for injury, pain, and swelling, Cardiovascular: Negative for chest pain, palpitations, and edema, Respiratory: + mild sob, no hemoptysis Abdomen/GI: Negative for abdominal pain, nausea, vomiting, diarrhea, and constipation, Back: + left flank pain : Negative for injury, bleeding, discharge, and swelling, MS/Extremity: Negative for injury and deformity, Skin: Negative for injury, rash, and discoloration, Neuro: Negative for headache, weakness, numbness, tingling, and seizure. Exam: 16:50 Constitutional: This is a well developed, well nourished patient who is awake, alert, rn and in no acute distress. Laying reclined in bed, on phone. Head/Face: Normocephalic, atraumatic. Eyes: Periorbital areas with no swelling, redness, or edema. Vital Signs: 14:21 BP 216 / 95; Pulse 57; Resp 19; Temp 97.9(TE); Pulse Ox 98% on R/A; Weight 93.44 kg; ab2 Height 5 ft. 4 in. (162.56 cm); Pain 10/10; 15:48 BP 157 / 105; Pulse 63; Resp 18; Pulse Ox 96% on R/A; Pain 8/10; ld1 17:51 BP 149 / 99; Pulse 60; Resp 18; Pulse Ox 96% on R/A; ld1 14:21 Body Mass Index 35.36 (93.44 kg, 162.56 cm) ab2 MDM: 14:55 Patient medically screened. rn 17:50 Differential diagnosis: UTI, pleurisy, congestive heart failure, COPD, UTI. Data rn reviewed: vital signs, nurses notes, lab test result(s), EKG, radiologic studies, plain films, and as a result, I will discharge patient. Data interpreted: Pulse oximetry: on room air is 98 %. Interpretation: normal. Counseling: I had a detailed discussion with the patient and/or guardian regarding: the historical points, exam findings, and any diagnostic results supporting the discharge/admit diagnosis, lab results, radiology results, the need for outpatient follow up, to return to the emergency department if symptoms worsen or persist or if there are any questions or concerns that arise at home. Response to treatment: the patient's symptoms have mildly improved after treatment, and as a result, I will discharge patient. Special discussion: Based on the patient's history, exam, and Dx evaluation, there is no indication for emergent intervention or inpatient Tx. It is understood by the patient/guardian that if the Sx's persist or worsen they need to return immediately for re-evaluation. I discussed with the patient/guardian in detail that at this point there is no indication for admission to the hospital. It is understood, however, that if the symptoms persist or worsen the patient needs to return immediately for re-evaluation. ED course: UA neg, urine micro neg, CXR without gross changes compared to previous, no oxygen requirement, no signs or report of trauma. Will dc home with return precautions.. 08/21 15:02 Order name: Urine Microscopic Only; Complete Time: 16:47 rn 08/21 14:55 Order name: XRAY Chest (1 view); Complete Time: 17:48 rn 08/21 16:09 Order name: Urine Dipstick-Ancillary; Complete Time: 16:47 EDMS 08/21 15:02 Order name: Urine Dipstick-Ancillary (obtain specimen); Complete Time: 17:50 rn 08/21 15:02 Order name: EKG; Complete Time: 15:02 rn 08/21 15:02 Order name: EKG - Nurse/Tech; Complete Time: 15:58 rn Administered Medications: 17:14 Drug: Xopenex (levalbuterol) 1.25 mg Route: Inhalation; ld1 17:50 Follow up: Response: No adverse reaction ld1 17:50 Not Given (unable to get IV access): morphine 4 mg IVP once; RASS on ADMIN: Combtv4, ld1 Very Agttd3, Agttd2, Rstlss1, AlertClm0, Drwsy-1, Lt Sdtn-2, Mod Sdtn-3, Dp Sdtn-4, UnArsble-5 Disposition Summary: 08/21/21 17:52 Discharge Ordered Location: Home rn Problem: new rn Symptoms: have improved rn Condition: Stable rn Diagnosis - Chest pain, unspecified rn - COPD/ Chronic obstructive pulmonary disease, unspecified rn Followup: rn - With: Private Physician - When: As needed - Reason: Recheck today's complaints, Re-evaluation by your physician Discharge Instructions: - Discharge Summary Sheet rn - Nonspecific Chest Pain, Adult rn - Chronic Obstructive Pulmonary Disease rn Forms: - Medication Reconciliation Form rn - Thank You Letter rn - Antibiotic rn vascular - Prescription Opioid Use rn Signatures: Dispatcher [employer] Ramon Linton MD MD rn Dibbern, Lauren, RN RN ld1 Wilbert Lowe
[2021-08-21 18:54] VITALS: TEMP 97.9
[2021-08-21 18:55] VITALS: O2SAT 96
[2021-08-21 18:56] VITALS: BP 149/99
--- NOTE | 2021-08-24 11:19 | EKG ---
Test Date: 2021-08-21 Test Time: 15:54:17 Traffic Manager: CHELA MEASUREMENT RESULTS: Intervals: Rate: 59 AZ: 182 QRSD: 90 QT: 480 QTc: 475 Calvin: P: 48 [place]: 182 QRS: 23 T: 34 INTERPRETIVE STATEMENTS: Sinus bradycardia Nonspecific ST and T wave abnormality Prolonged QT Abnormal ECG Compared to ECG 08/11/2021 15:16:23 Sinus rhythm no longer present Left ventricular hypertrophy no longer present ST (T wave) deviation still present Electronically Signed On 08-24-21 11:13:27 CDT by Per Crane
== END 2021-08-21 18:04 | disposition home or self-care (01) ==
LOC: ER 13:42
DX: J44.9 Chronic obstructive pulmonary disease, unspecified (principal); I10 Essential (primary) hypertension; I48.91 Unspecified atrial fibrillation; F31.9 Bipolar disorder, unspecified; Z21 Asymptomatic human immunodeficiency virus [HIV] infection status; Z88.1 Allergy status to other antibiotic agents; Z88.2 Allergy status to sulfonamides; Z88.5 Allergy status to narcotic agent; Z88.8 Allergy status to other drugs, medicaments and biological substances
CPT/HCPCS: 93005; 71045; 99284; J2405; 81003; 81015

== ENCOUNTER 2021-08-27 20:22 | Emergency (ER) | payer OTHER ==
--- OUTSIDE RECORDS SUMMARY | 2021-08-27 20:33 | XMS REPORT | Continuity of Care Document ---
:1955 Author Organization [facility] t Address [address] [place] [address] Care Team Providers Name Role Phone Francisco Rahman Primary Care Physician Ashely Attending Clinician Unavailable PANKAJ Attending Clinician Unavailable RONALD Attending Clinician Unavailable [facility] Attending Clinician Unavailable Ronald DHILLON Attending Clinician Ap JENKINS Attending Clinician Doctor Unassigned, Name Attending Clinician Unavailable Prabhu SANCHEZ Attending Clinician Unavailable Luisana Maharaj NP Attending Clinician Yazmin JENKINS Attending Clinician Devin VACUUM PAN TENDER, R Attending Clinician Clark SANCHEZ Attending Clinician [...] Policy Number Effective Date Expiration Date S [facility] COMMUNITY PLAN [id number] 2012 ST[employer] PLUS OON 00:00:00 [facility] DUAL [id number] 2020 COMP HMO D SNP 00:00:00 MEDICAID OF [place] [id number] 2020 00:00:00 Problems Condition Condition Condition Status Onset Resolution Last Treating Co mments Source Name Details Category Date Date Treatment Clinician Date Gastropare Gastropare Disease Active Overview : Methodi sis sis 4-[address] 00:00: [facility] note l might be different from the original. Added automatic ally from request for surgery [id number] Dysphagia Dysphagia Disease Active Overview: Methodi 4-[address] 00:00: [facility] 00 note l might be different from the original. Added automatic ally from request for surgery [id number] CCL / EPS Diagnosis Active 2020-10-15 Memoria PVI 3-30 17:07:00 l ABLATION CCL / 00:00: [place] W/ CARTO / EPS PVI 00 GA / T ABLATION W/ CARTO / GA / T Active 08/19/2020 [facility] Food Food Disease Active [...] (BMI 2-19 ity of 30-39.9) 30-39.9) 00:00: [place] [facility] Anemia Anemia Disease Active 2014-05 Univers 0-03 ity of 00:00: [place] [facility] Hypovolemi Hypovolemi Disease Active 2014-05 U nivers a due to a due to 0-02 ity of hemorrhage hemorrhage [place] [facility] Chest pain Chest pain Disease Active 2014-05 U nivers 0-02 ity of 00:00: [place] [facility] 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:00: [place] shoulder shoulder 00 Medica l arthroplas arthroplas Br anch ty ty Posttrauma Posttrauma Disease Active U nivers tic stress tic stress 09-27 it y of disorder disorder 00:00: [place] [facility] 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 00:00: [place] virus virus 00 Medical (HIV) (HIV) Branch disease disease Bipolar 2 Bipolar 2 Disease Active Uni vers disorder disorder 11-18 ity of 00:00: [place] [facility] Chronic Chronic Disease Active Univers hepatitis hepatitis 11-18 ity of C C 00:00: [place] [facility] Hypertensi Hypertensi Disease Active U nivers on on 11-18 ity of 00:00: [place] [facility] Allergies, Adverse Reactions, Alerts Allergy Allergy Status Severity Reaction(s) Onset Inactive Treating Comm ents Source Name Type Date Date Clinician sulfamet DA Active [facility] N[facility] hoxazole 1-25 Clear 00:00: [address] trimetho DA Active SV [facility] prim 1-25 Clear 00:00: Garcia 00 [facility] codeine DA Active [...] Date Stop Date Source Natural father Hypertension [facility] Natural father Kidney disease [facility] Natural father Diabetes [facility] Natural father Other - see comments [facility] Natural [facility] mother Cancer [facility] Social History Social Habit Start Date Stop Date Quantity Comments Source History of tobacco Smoker Method ist use Hospital History [facility] Health Alcohol Comment History [facility] Health Alcohol Std Drinks History [facility] Alcohol Binge Exposure to Not sure University of SARS-CoV-2 (event) [facility] Alcohol intake 2021-07-14 2021-07-14 Ex-drinker [facility] 00:00:00 00:00:00 (finding) Cigarettes smoked 2020-12-08 2020-12-[address] current (pack per 00:00:00 00:00:00 Hospita l day) - Reported Cigarette 2020-12-08 2020-12-08 [facility] pack-years 00:00:00 00:00:00 Hospital Tobacco use and 2020-10-31 2020-10-31 Smokeless tobacco [facility] exposure 00:00:00 00:00:00 non-user History SDOH 2020-10-31 2020-10-31 1 [facility] Alcohol Frequency 00:00:00 00:00:00 Tobacco Comment 2015-02-14 2015-02-14 Smokes approx 1-2 Un iversity of 00:00:00 00:00:00 cigarettes per [facility] day when she Branch smokes Sex [birth year] [facility] 00:00:00 00:00:00 Smoking Status Start Date Stop Date Source Former smoker 2020-12-08 00:00:00 2020-12-08 00:00:00 [facility] Medications Ordered Filled Start Stop Current Ordering Indication Dosage Frequency Signature Comments Components Source Medication Medication Date Date Medication? Clinician (SIG) Name Name raltegravir Yes [id number] 400mg Take 1 Univers (ISENTRESS) 3-28 tablet by ity of 400 mg 00:00: mouth 2 [place] tablet 00 (two) Medical times Branch daily. raltegravir Yes [id number] 400mg Take 1 Univers (ISENTRESS) 3-28 tablet by ity of 400 mg 00:00: mouth 2 [place] tablet 00 (two) Medical times Branch daily. LORazepam 1 Yes [id number] 1mg Take 1 Univers mg tablet 3-21 tablet by ity o f 00:00: mouth 3 [place] 00 (three) Medical times Branch daily as needed (anxiety). LORazepam 1 Yes [id number] 1mg Take 1 Univers mg tablet 3-21 tablet by ity o f 00:00: mouth 3 [place] 00 (three) Medical times Branch daily as needed (anxiety). LORazepam 1 Yes [id number] 1mg Take 1 Univers mg tablet 3-21 tablet by ity o f 00:00: mouth 3 [place] 00 (three) Medical times Branch daily as needed (anxiety). LORazepam 1 0 Yes [id number] 1mg Take 1 Univers mg tablet 3-21 tablet by ity o f 00:00: mouth 3 [place] 00 (three) Medical times Branch daily as needed (anxiety). raltegravir Yes 400mg Q.5D Take 400 U T (Isentress) 2-22 mg by Health 400 MG 09:09: mouth 2 tablet 52 (two) times a day. LORazepam 1 2021- No [id number] 1mg Take 1 Univers mg tablet 2-21 03-16 tablet by ity of 00:00: 00:00 mouth 3 [place] 00 :00 (three) Medical times Branch daily as needed (anxiety). promethazin 0 Yes 25mg Q.5D Take 25 mg UT e 2-08 by mouth 2 Health (Phenergan) 00:00: (two) 25 MG 00 times a tablet day. furosemide 0 Yes 40mg Q.5D Take 40 mg U T (Lasix) 40 2-08 by mouth 2 Hea lth MG tablet 00:00: (two) 00 times a day. buPROPion 0 Yes [id number] 150mg Take 1 U nivers XL 1-24 tablet by ity of (WELLBUTRIN 00:00: mouth [place] XL) 150 mg 00 daily. Medical 24 hr Branch tablet busPIRone 2021-0 Yes [id number] 30mg Take 1 Un matt 30 mg 1-24 tablet by ity of tablet 00:00: mouth 2 [place] 00 (two) Medical times Branch daily. SERTraline 0 Yes [id number] 200mg Take 2 Univers 100 mg 1-24 tablets by ity of tablet 00:00: mouth [place] 00 daily. Medical Branch buPROPion 2021-0 Yes [id number] 150mg Take 1 U nivers XL 1-24 tablet by ity of (WELLBUTRIN 00:00: mouth [place] XL) 150 mg 00 daily. Medical 24 hr Branch tablet busPIRone 2021-0 Yes [id number] 30mg Take 1 Un matt 30 mg 1-24 tablet by ity of tablet 00:00: mouth 2 [place] 00 (two) Medical times Branch daily. SERTraline Yes [id number] 200mg Take 2 Univers 100 mg 1-24 tablets by ity of tablet 00:00: mouth [place] 00 daily. Medical Branch buPROPion 0 Yes [id number] 150mg Take 1 U nivers XL 1-24 tablet by ity of (WELLBUTRIN 00:00: mouth [place] XL) 150 mg 00 daily. Medical 24 hr Branch tablet busPIRone Yes [id number] 30mg Take 1 Un matt 30 mg 1-24 tablet by ity of tablet 00:00: mouth 2 [place] 00 (two) Medical times Branch daily. SERTraline Yes [id number] 200mg Take 2 Univers 100 mg 1-24 tablets by ity of tablet 00:00: mouth [place] 00 daily. Medical Branch buPROPion Yes [id number] 150mg Take 1 U nivers XL 1-24 tablet by ity of (WELLBUTRIN 00:00: mouth [place] XL) 150 mg 00 daily. Medical 24 hr Branch tablet busPIRone Yes [id number] 30mg Take 1 Un matt 30 mg 1-24 tablet by ity of tablet 00:00: mouth 2 [place] 00 (two) Medical times Branch daily. SERTraline Yes [id number] 200mg Take 2 Univers 100 mg 1-24 tablets by ity of tablet 00:00: mouth [place] 00 daily. Medical Branch LORazepam 1 2021- No [id number] 1mg Take 1 Univers mg tablet 1-24 02-21 tablet by ity of 00:00: 00:00 mouth 3 [place] 00 :00 (three) Medical times Branch daily as needed (anxiety). emtricitabi Yes [id number] Take one Univers ne-tenofovi 1-20 po daily ity of r alafen 00:00: [place] (DESCOVY) 00 Medical tablet Branch emtricitabi 0 Yes [id number] Take one Univers ne-tenofovi 1-20 po daily ity of r alafen 00:00: [place] (DESCOVY) 00 Medical tablet Branch emtricitabi Yes [id number] Take one Univers ne-tenofovi 1-20 po daily ity of r alafen 00:00: [place] (DESCOVY) 00 Medical tablet Branch emtricitabi 2021-0 Yes [id number] Take one Univers ne-tenofovi 1-20 po daily ity of r alafen 00:00: [place] (DESCOVY) 00 Medical tablet Branch raltegravir 0 Yes [id number] 400mg Take 1 Univers (ISENTRESS) 1-12 tablet by ity of 400 mg 00:00: mouth 2 [place] tablet 00 (two) Medical times Branch daily. raltegravir 2021- No [id number] 400mg Take 1 Univers (ISENTRESS) 1-12 03-28 tablet by it y of 400 mg 00:00: 00:00 mouth 2 [place] tablet 00 :00 (two) Medical times Branch daily. raltegravir 2021- No [id number] 400mg Take 1 Univers (ISENTRESS) 1-12 -28 tablet by it y of 400 mg 00:00: 00:00 mouth 2 [place] tablet 00 :00 (two) Medical times Branch daily. metoprolol 0 Yes [id number] Take 1 [facility] tartrate 7-26 tablet Health (Lopressor) 00:00: (100 mg 100 MG 00 total) by tablet mouth 2 (two) times a day AND 0.5 tablets (50 mg total) every night. metoprolol 0 Yes [id number] Take 1 [facility] tartrate 7-26 tablet Health [...] (affected area in groin) hydrALAZINE Yes 50mg Q.[id number] Take 50 mg Methodi (APRESOLINE 7-[id number] ) 50 MG [...] tablet 25 daily. l nystatin-tr 2020-0 Yes [id number] Apply to [facility] iainolone 7-06 area(s) 3 ity of cream 00:00: (three) [place] 00 times Medical daily. Branch nystatin-tr 2020-0 Yes [id number] Apply to [facility] iainolone 7-06 area(s) 3 ity of cream 00:00: (three) [place] 00 times Medical daily. Branch nystatin-tr 2020-0 [id number] [facility] ity of cream 00:00: (three) [place] 00 times Medical daily. Branch nystatin-tr 2020-0 Yes [id number] [facility] 3 ity of cream 00:00: (three) [place] 00 times Medical daily. Branch budesonide- 2020-0 2020- No 1{puff} QD Inhale 1 Methodi formoteroL 6-25 06-[address] (SYMBICORT) 19:37: 00:00 morning. H ospita 160-4.5 02 :00 l mcg/actuati on inhaler hydrALAZINE Yes [id number] 50mg Q.[id number] Take 1 [facility] (Apresoline 6-11 [id number] tablet (50 Health ) 50 MG 00:00: 3D mg total) tablet 00 by mouth 3 (three) times a day. hydrALAZINE Yes [id number] 50mg Q.[id number] Take 1 [facility] (Apresoline 6-11 [id number] tablet (50 Health ) 50 MG 00:00: [...] % 00:00: ointment 00 nystatin 2020- No [id number] Q.25D Take 5 mL Methodi (MYCOSTATIN 10-06 [...] ia 4-10 (Same as: l 14:00: Norvasc) [place] emtricitabi No Notes: Caesar lisa ne 200 MG / 4-10 (Same as: l tenofovir 14:00: Descovy) Herm ariel alafenamide 00 Non-formul 25 MG Oral nancy Tablet [Descovy] pantoprazol No Notes: Caesar lisa e 4-10 Tablet l 14:00: should not [place] 00 be chewed or crushed. (Same as: Protonix) Amiodarone No Notes: Memor ia 4-10 (Same as: l 14:00: Cordarone) [place] Amlodipine No Notes: Memor ia 4-10 (Same as: l 14:00: Norvasc) [place] emtricitabi No Notes: Caesar lisa ne 200 MG / 4-10 (Same as: l tenofovir 14:00: Descovy) Herm ariel alafenamide 00 Non-formul 25 MG Oral nancy Tablet [Descovy] Sertraline No Notes: Memor ia 4-10 (Same as: l 14:00: Zoloft) [place] Sertraline No Notes: Memor ia 4-10 (Same as: l 14:00: Zoloft) [place] 00 pantoprazol No Notes: Caesar lisa e 4-10 Tablet l 14:00: should not [place] 00 be chewed or crushed. (Same as: Protonix) Amiodarone No Notes: Memor ia 4-10 (Same as: l 14:00: Cordarone) [place] Amlodipine No Notes: Memor ia 4-10 (Same [...] ia 4-10 (Same as: l 14:00: Norvasc) [place] 00 emtricitabi No Notes: Caesar lisa ne 200 MG / 4-10 (Same as: l tenofovir 14:00: Descovy) Herm ariel alafenamide 00 Non-formul 25 MG Oral nancy Tablet [Descovy] Sertraline No Notes: Memor ia 4-10 (Same as: l 14:00: Zoloft) [place] 00 pantoprazol No Notes: Caesar lisa e 4-10 Tablet l 14:00: should not [place] 00 be chewed or crushed. (Same as: Protonix) Amiodarone No Notes: Memor ia 4-10 (Same as: l 14:00: Cordarone) [place] 00 Amlodipine No Notes: Memor ia 4-10 (Same as: l 14:00: Norvasc) [place] 00 emtricitabi No Notes: Caesar lisa ne 200 MG / 4-10 (Same as: l tenofovir 14:00: Descovy) Herm ariel alafenamide 00 Non-formul 25 MG Oral nancy Tablet [Descovy] Sertraline No Notes: Memor ia 4-10 (Same as: l 14:00: Zoloft) [place] 00 pantoprazol No Notes: Caesar lisa e 4-10 Tablet l 14:00: should not [place] 00 be chewed or crushed. (Same as: Protonix) Amiodarone No Notes: Memor ia 4-10 (Same as: l 14:00: Cordarone) [place] 00 Amlodipine No Notes: Memor ia 4-10 (Same as: l 14:00: Norvasc) [place] emtricitabi No Notes: Caesar lisa ne 200 MG / 4-10 (Same as: l tenofovir 14:00: Descovy) Herm ariel alafenamide 00 Non-formul 25 MG Oral nancy Tablet [Descovy] Sertraline No Notes: Memor ia 4-10 (Same as: l 14:00: Zoloft) [place] pantoprazol No Notes: Caesar lisa e 4-10 Tablet l 14:00: should not [place] 00 be chewed or crushed. (Same as: Protonix) Amiodarone No Notes: Memor ia 4-10 (Same as: l 14:00: Cordarone) [place] Amlodipine No Notes: Memor ia 4-10 (Same as: l 14:00: Norvasc) [place] emtricitabi No Notes: Caesar lisa ne 200 [...] ia 4-10 (Same as: l 14:00: Cordarone) [place] 00 Sucralfate No Notes: May M emoria 4-10 interfere l 02:00: w/enteral [place] 00 feeds - Take 1 hr before [...] M emoria 4-10 interfere l 02:00: w/enteral [place] 00 feeds - Take 1 hr before [...] Memoria 4-10 Same as: l 02:00: Eliquis [place] 00 Hydralazine No Notes: Caesar lisa Hydrochlori [...] Memoria 4-10 Same as: l 02:00: Eliquis [place] Hydralazine No Notes: Caesar lisa Hydrochlori 4-10 [...] 0.9% 4-10 (Same as: l 02:00: BD [place] 00 Posiflush) Eliquis No Notes: Memoria 4-10 [...] 0.9% 4-10 (Same as: l 02:00: BD [place] 00 Posiflush) Eliquis No Notes: Memoria 4-10 Same as: l 02:00: Eliquis [place] Hydralazine No Notes: Caesar lisa Hydrochlori 4-10 [...] 0.9% 4-10 (Same as: l 02:00: BD [place] 00 Posiflush) Eliquis No Notes: Memoria 4-10 [...] not exceed l #3 00:12: 4gm/day of [place] acetaminop hen. (Same as: Tylenol with Codeine # 3) acetaminoph No Notes: Do M emoria en-codeine 4-10 not exceed l #3 00:12: 4gm/day of [place] acetaminop hen. (Same as: Tylenol with Codeine # 3) acetaminoph No Notes: Do M emoria en-codeine 4-10 not exceed l #3 00:12: 4gm/day of [place] acetaminop hen. (Same as: Tylenol with Codeine # 3) acetaminoph No Notes: Do M emoria en-codeine 4-10 not exceed l #3 00:12: 4gm/day of [place] acetaminop hen. (Same as: Tylenol with Codeine # 3) acetaminoph No Notes: Do M emoria en-codeine 4-10 not exceed l #3 00:12: 4gm/day of [place] 00 acetaminop hen. (Same as: Tylenol with Codeine # 3) acetaminoph No Notes: Do M emoria en-codeine 4-10 not exceed l #3 00:12: 4gm/day of [place] acetaminop hen. (Same as: Tylenol with Codeine # 3) Buspirone No Notes: Memori a 08-29 (Same As: l 22:00: BuSpar) Lisinopril No 40 mg, 1 Mem oria 4- tab, l 22:00: Route: PO, [place] Drug form: TAB, BID, Dosing Weight 97.273, [...] tab, l Tablet 22:00: Route: PO, [place] [facility] Drug form: TAB, BID, Dosing Weight 97.273, [...] tartrate 4-09 tab, l 22:00: Route: PO, [place] 00 Drug form: TAB, BID, Dosing Weight [...] tartrate 4-09 tab, l 22:00: Route: PO, [place] 00 Drug form: TAB, BID, Dosing Weight [...] oria 4-09 tab, l 22:00: Route: PO, [place] 00 Drug form: TAB, BID, Dosing Weight 97.273, kg, Start date: 08/29/20 17:00:00 CDT, Duration: 30 day, Stop date: 09/28/20 9:00:00 CDT metoprolol 2021-0 No 100 mg, 1 Me moria tartrate 4-09 tab, l 22:00: Route: PO, [place] Drug form: TAB, BID, Dosing Weight 97.273, [...] oria 4-09 tab, l 22:00: Route: PO, [place] 00 Drug form: TAB, BID, Dosing Weight 97.273, kg, Start date: 08/29/20 17:00:00 CDT, Duration: 30 day, Stop date: 09/28/20 9:00:00 CDT metoprolol No 100 mg, 1 Me moria tartrate 4-09 tab, l 22:00: Route: PO, [place] 00 Drug form: TAB, BID, Dosing Weight [...] Notes: Memoria 4-09 (Same l 17:07: as:MORPhin [place] 00 e Sulfate) Morphine No Notes: Memoria 4-09 (Same l 17:07: as:MORPhin [place] 00 e Sulfate) Morphine No Notes: Memoria 4-09 (Same l 17:07: as:MORPhin [place] 00 e Sulfate) Morphine No Notes: Memoria 4-09 (Same l 17:07: as:MORPhin [place] 00 e Sulfate) Morphine No Notes: Memoria 4-09 (Same l 17:07: as:MORPhin [place] 00 e Sulfate) Morphine No Notes: Memoria 4-09 (Same l 17:07: as:MORPhin [place] 00 e Sulfate) Morphine No Notes: Memoria [...] tab, PO, l oral 15:27: Daily, # [place] enteric 00 30 tab, 0 coated Refill(s), tablet Pharmacy: [facility] 149, 162.56, cm, 08/29/20 5:30:00 CDT, Height, 97.273, kg, 08/29/20 5:30:00 CDT, Weight pantoprazol 1-0 Yes 40 mg = 1 M emoria e 40 mg 4-09 tab, PO, l oral 15:27: Daily, # [place] enteric 00 30 tab, 0 coated Refill(s), tablet Pharmacy: [facility] 149, 162.56, cm, 08/29/20 5:30:00 CDT, Height, 97.273, kg, 08/29/20 5:30:00 CDT, Weight pantoprazol 1-0 Yes 40 mg = 1 M emoria e 40 mg 4-09 tab, PO, l oral 15:27: Daily, # [place] enteric 00 30 tab, 0 coated Refill(s), tablet Pharmacy: [facility] 149, 162.56, cm, 08/29/20 5:30:00 CDT, Height, 97.273, kg, 08/29/20 5:30:00 CDT, Weight pantoprazol 1-0 Yes 40 mg = 1 M emoria e 40 mg 4-09 tab, PO, l oral 15:27: Daily, # [place] enteric 00 30 tab, 0 coated Refill(s), tablet Pharmacy: [facility] 149, 162.56, cm, 08/29/20 5:30:00 CDT, Height, 97.273, kg, 08/29/20 5:30:00 CDT, Weight pantoprazol 2021-0 Yes 40 mg = 1 M emoria e 40 mg 4-09 tab, PO, l oral 15:27: Daily, # [place] enteric 00 30 tab, 0 coated Refill(s), tablet [facility], 162.56, cm, 08/29/20 5:30:00 CDT, Height, 97.273, kg, 08/29/20 5:30:00 CDT, Weight pantoprazol 2020-0 Yes 40 mg = 1 M emoria e 40 mg 4-09 tab, PO, l oral 15:27: Daily, # [place] enteric 00 30 tab, 0 coated Refill(s), tablet [facility], 162.56, cm, 08/29/20 5:30:00 CDT, Height, 97.273, kg, 08/29/20 5:30:00 CDT, Weight pantoprazol 2020-0 Yes 40 mg = 1 M emoria e 40 mg 4-09 tab, PO, l oral 15:27: Daily, # [place] enteric 00 30 tab, 0 coated Refill(s), tablet [facility] 149, 162.56, cm, 08/29/20 5:30:00 CDT, Height, 97.273, kg, 08/29/20 5:30:00 CDT, Weight pantoprazol 2020-0 No 40 mg = 1 M emoria e 40 mg 4-09 tab, PO, l oral 15:26: Daily, # [place] enteric 00 30 tab, 0 coated Refill(s) tablet sucralfate 2020-0 Yes 1 gm = 1 Mem oria 1 g oral 4-09 tab, PO, l tablet 15:26: Q12H, # 28 Skylar nn 00 tab, 0 Refill(s), Pharmacy: [facility] 149, 162.56, cm, 08/29/20 5:30:00 CDT, Height, 97.273, kg, 08/29/20 5:30:00 CDT, Weight pantoprazol 1-0 No 40 mg = 1 M emoria e 40 mg 4-09 tab, PO, l oral 15:26: Daily, # [place] enteric 00 30 tab, 0 coated Refill(s) tablet sucralfate 1-0 Yes 1 gm = 1 Mem oria 1 g oral 4-09 tab, PO, l tablet 15:26: Q12H, # 28 Skylar nn 00 tab, 0 Refill(s), Pharmacy: [facility] 149, 162.56, cm, 08/29/20 5:30:00 [...] Skylar nn 00 tab, 0 Refill(s), Pharmacy: [facility] 149, 162.56, cm, 08/29/20 5:30:00 [...] Skylar nn 00 tab, 0 Refill(s), Pharmacy: [facility] 149, 162.56, cm, 08/29/20 5:30:00 [...] Skylar nn 00 tab, 0 Refill(s), Pharmacy: [facility] 149, 162.56, cm, 08/29/20 5:30:00 [...] Skylar nn 00 tab, 0 Refill(s), Pharmacy: [facility] 149, 162.56, cm, 08/29/20 5:30:00 CDT, Height, 97.273, kg, 08/29/20 5:30:00 CDT, Weight pantoprazol No 40 mg = 1 M emoria e 40 mg 4-09 tab, PO, l oral 15:26: Daily, # [place] enteric 00 30 tab, 0 coated Refill(s) tablet sucralfate Yes 1 gm = 1 Mem oria 1 g oral 4-09 tab, PO, l tablet 15:26: Q12H, # 28 Skylar nn 00 tab, 0 Refill(s), Pharmacy: [facility] 149, 162.56, cm, 08/29/20 5:30:00 CDT, Height, 97.273, kg, 08/29/20 5:30:00 CDT, Weight Saline No Notes: Memoria Flush 0.9% 4-09 (Same as: l 15:25: BD [place] 00 Posiflush) Lorazepam No Notes: Memori a 4-09 (Same as: l 15:25: Ativan) Marty 00 Saline No Notes: Memoria Flush 0.9% 4-09 (Same as: l 15:25: BD [place] 00 Posiflush) Lorazepam No Notes: Memori a [...] 0.9% 4-09 (Same as: l 15:25: BD [place] 00 Posiflush) Lorazepam No Notes: Memori a 4-09 (Same as: l 15:25: Ativan) Saline No Notes: Memoria Flush 0.9% 4-09 (Same as: l 15:25: BD [place] 00 Posiflush) Lorazepam No Notes: Memori a 4-09 (Same as: l 15:25: Ativan) Saline No Notes: Memoria Flush 0.9% 4-09 (Same as: l 15:25: BD [place] Posiflush) Lorazepam No Notes: Memori a 4-09 (Same as: l 15:25: Ativan) Isuprel HCl No Route: IV, Memoria (ANES) 0.2 08-29 Drug form: l mg + 15:00: INJ, [place] 00 Dosing Weight 97.3, kg, Start date: 08/29/20 10:00:00 CDT, Stop date: 08/29/20 11:00:00 CDT Isuprel HCl No Route: IV, Memoria (ANES) 0.2 08-29 Drug form: l mg + 15:00: INJ, Marty Dosing Weight 97.3, kg, Start date: 08/29/20 10:00:00 CDT, Stop date: 08/29/20 11:00:00 CDT Isuprel HCl No Route: IV, Memoria (ANES) 0.2 08-29 Drug form: l mg + 15:00: INJ, [place] 00 Dosing Weight 97.3, kg, Start date: 08/29/20 10:00:00 CDT, Stop date: 08/29/20 11:00:00 CDT Isuprel HCl 2020-0 No Route: IV, Memoria (ANES) 0.2 08-29 Drug form: l mg + 15:00: INJ, [place] 00 Dosing Weight 97.3, kg, Start date: 08/29/20 10:00:00 CDT, Stop date: 08/29/20 11:00:00 CDT Isuprel HCl 2020-0 No Route: IV, Memoria (ANES) 0.2 08-29 Drug form: l mg + 15:00: INJ, [place] 00 Dosing Weight 97.3, kg, Start date: 08/29/20 10:00:00 CDT, Stop date: 08/29/20 11:00:00 CDT Isuprel HCl 2020-0 No Route: IV, Memoria (ANES) 0.2 08-29 Drug form: l mg + 15:00: INJ, [place] 00 Dosing Weight 97.3, kg, Start date: [...] INJ, ONCE, Stop date: 08/29/20 9:18:00 CDT Naloxone 2020-0 No 0.4 mg, Memori [...] oria ne 08-29 Route: l 14:01: IVP, [place] 00 Q5Min, Dosing Weight 97.273, kg, PRN Pain Score 7-10, Start date: 08/29/20 9:01:00 CDT, Duration: 4 doses or times, Stop date: Limited # of times Flumazenil 1-0 No 0.2 mg, Caesar lisa 08-29 Route: l 14:01: IVP, PRN, [place] 00 Dosing Weight 97.273, kg, PRN Benzodiaze pine Reversal, Initial dose, Start date: 08/29/20 9:01:00 CDT, Duration: 30 day, Stop date: 09/28/20 9:00:00 CDT Naloxone 2021-0 No 0.4 mg, Memori a 08-29 Route: l 14:01: IVP, [place] 00 Q2MIN, Dosing Weight 97.273, kg, PRN Narcotic Reversal, Start date: 08/29/20 9:01:00 CDT, Duration: 8 doses or times, Stop date: Limited # of times Ondansetron 1-0 No 4 mg, Memor ia 08-29 Route: l 14:01: IVP, ONCE, [place] 00 Dosing Weight 97.273, kg, PRN Nausea [...] 08-29 Route: PO, l 14:01: Drug form: [place] 00 TAB, ONCE, Dosing Weight 97.273, kg, [...] oria ne 08-29 Route: l 14:01: IVP, [place] 00 Q5Min, Dosing Weight 97.273, kg, PRN [...] ia 08-29 Route: l 14:01: IVP, ONCE, [place] 00 Dosing Weight 97.273, kg, PRN Nausea [...] 08-29 Route: PO, l 14:01: Drug form: [place] 00 TAB, ONCE, Dosing Weight 97.273, kg, [...] Memori a 08-29 Route: l 14:01: IVP, [place] 00 Q2MIN, Dosing Weight 97.273, kg, PRN [...] Memori a 08-29 Route: l 14:01: IVP, [place] 00 Q5Min, Dosing Weight 97.273, kg, PRN Elevated BP, Start date: 08/29/20 9:01:00 CDT, Duration: 5 doses or times, Stop date: Limited # of times Acetaminoph 1-0 No 1,000 mg, M emoria en 08-29 Route: PO, l 14:01: Drug form: [place] 00 TAB, ONCE, Dosing Weight 97.273, kg, [...] oria ne 08-29 Route: l 14:01: IVP, [place] 00 Q5Min, Dosing Weight 97.273, kg, PRN Pain Score 7-10, Start date: 08/29/20 9:01:00 CDT, Duration: 4 doses or times, Stop date: Limited # of times Labetalol 1-0 No 10 mg, Memori a 08-29 Route: l 14:01: IVP, [place] 00 Q5Min, Dosing Weight 97.273, kg, PRN [...] Memori a 08-29 Route: l 14:01: IVP, [place] 00 Q2MIN, Dosing Weight 97.273, kg, PRN [...] ia 08-29 Route: l 14:01: IVP, ONCE, [place] Dosing Weight 97.273, kg, PRN Nausea & Vomiting, Start date: 08/29/20 9:01:00 CDT Naloxone 2021-0 No 0.4 mg, Memori a 08-29 Route: l 14:01: IVP, [place] 00 Q2MIN, Dosing Weight 97.273, kg, PRN Narcotic Reversal, Start date: 08/29/20 9:01:00 CDT, Duration: 8 doses or times, Stop date: Limited # of times Ondansetron 2021-0 No 4 mg, Memor ia 08-29 Route: l 14:01: IVP, ONCE, [place] Dosing Weight 97.273, kg, PRN Nausea & Vomiting, Start date: 08/29/20 9:01:00 CDT Labetalol 2021-0 No 10 mg, Memori a 08-29 Route: l 14:01: IVP, [place] 00 Q5Min, Dosing Weight 97.273, kg, PRN [...] oria ne 08-29 Route: l 14:01: IVP, [place] 00 Q5Min, Dosing Weight 97.273, kg, PRN Pain Score 7-10, Start date: 08/29/20 9:01:00 CDT, Duration: 4 doses or times,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 CLINICS 4.2.7.2.686 [id number] 089 2020-11-25 2020-11-25 Telephone [facility] 1.2.838.051 6601 0821 00:00:00 00:00:00 Rosnda R [employer] 350.1.13.10 REGIONAL 4.2.7.2.686 MATERNAL 390.0840090 & CHILD 107 [facility] 2020-11-14 2020-11-14 Abstract Clark, 1.2.840.1 [id number] 70798 70443 Methodi 00:00:00 00:00:[address] 3.430.2.7 Hospit a .3.941060 l .8 2020-11-14 2020-11-14 Telephone Rodas, 1.2.840.1 [id number] 2099 219540 Methodi 00:00:00 00:00:[address] 3.430.2.7 Hospit a .3.574399 l .8 2020-11-07 2020-11-07 Telephone Diana, [facility] 6400 1.2.840.114 124 [id number] 00:00:00 00:00:[address] 350.1.13.58 9.2.7.2.686 116.7497798 1 2020-10-27 2020-10-27 Telephone Jeredimasa, 1.2.840.5 [id number] 20249614 Methodi 00:00:00 00:00:[address] 3.430.2.7 Hospit a .3.999466 l .8 2020-10-24 2020-10-24 Telephone Rodas, 1.2.840.1 [id number] 2099 305004 Methodi 00:00:00 00:00:[address] 3.430.2.7 Hospit a .3.627042 l .8 2020-10-06 2020-10-12 Telemedici Yazmin, 1.2.840.1 [id number] 17410016 Methodi 15:26:54 00:08:46 ne Ray 03207.1.[address] 3.430.2.7 Hospit a .3.764768 l .8 2020-09-30 2020-09-30 Telephone Yazmin, 1.2.840.4 [id number] 21 [id number] Methodi 00:00:00 00:00:[address] 3.430.2.7 Hospit a .3.392819 l .8 2020-09-21 2020-09-21 Travel 1.2.840.1 1.2.526.146 6556 686744 Methodi 00:00:00 00:00:[address] 3.430.2.7 0.2.7.3.698 Ho spita .3.558185 084.8 l .8 2020-09-01 2020-09-09 Lab Ramiro Mitchell 1.2.840.1 [id number] 48891 90160 Methodi 10:13:59 01:05:[address] 3.430.2.7 Hospit a .3.093993 l .8 2020-09-06 2020-09-06 [facility] 1.2.840.1 [id number] 73457 35063 Methodi 17:42:30 23:59:[address] 3.430.2.7 Hospit a .3.054607 l .8 2020-09-06 2020-09-06 [facility], 1.2.840.1 [id number] 2099 226159 Methodi 16:50:00 17:41:00 Encounter Ray [address]41.1.[address] 3.430.2.7 Hospit a .3.892870 l .8 2020-09-05 2020-09-05 [facility], 1.2.840.1 [id number] 2099 465760 Methodi 09:17:00 19:45:00 Encounter Ray [address]37.1.[address] 3.430.2.7 Hospit a .3.408976 l .8 2020-09-05 2020-09-05 [facility] 1.2.840.1 [id number] 89045 14035 Methodi 11:30:00 13:15:[address] 3.430.2.7 Hospit a .3.917684 l .8 2020-09-05 2020-09-05 Anesthesia [facility], 1.2.840.1 [id number] 829 [id number] Methodi 11:27:00 12:20:00 Event Lynnettevalentinadarrellthi 31199.1.1 243 s t V. 3.430.2.7 Hospit a .3.641808 l .8 2020-09-05 2020-09-05 Travel 1.2.840.1 1.2.870.263 7714 573072 Methodi 00:00:00 00:00:[address] 3.430.2.7 0.2.7.3.698 Ho spita .3.438406 084.8 l .8 2020-09-04 2020-09-04 Telephone [facility], 1.2.840.1 [id number] Methodi 00:00:00 00:00:00 Sarai Corbin. 43356.1.1 762 s t 3.430.2.7 Hospit a .3.589906 l .8 2020-09-02 2020-09-02 [facility], 1.2.840.5 [id number] Methodi 00:00:00 00:00:00 Sarai Corbin. 61908.1.1 344 s t 3.430.2.7 Hospit a .3.748942 l .8 2020-09-01 2020-09-01 Office [facility], 1.2.840.1 [id number] 01944 68432 Methodi 08:42:53 09:50:51 Visit Ray 64304.1.[address] 3.430.2.7 Hospit a .3.295469 l .8 2020-09-01 2020-09-01 Telephone [facility], 1.2.840.9 [id number] 21 [id number] Methodi 00:00:00 00:00:[address] 3.430.2.7 Hospit a .3.138993 l .8 2020-09-01 2020-09-01 Travel 1.2.840.1 1.2.778.830 0218 836239 Methodi 00:00:00 00:00:[address] 3.430.2.7 0.2.7.3.698 Ho spita .3.667956 084.8 l .8 2020-08-29 2020-08-30 [facility]ded [facility] [id number] 275 [facility] 10:20:00 14:10:00 Outpatient r Dunlap 00 l [facility] 2020-08-29 2020-08-30 Outpatient HEMATPOUR, [facility] CAR 7500 [facility] 05:20:00 09:10:00 BEVERLY 2020-08-27 2020-08-27 [facility], 1.2.840.1 [id number] 2100 182575 Methodi 09:55:15 23:59:00 Encounter Ray [address]452.1.[address] 3.430.2.7 Hospit a .3.380427 l .8 2020-08-27 2020-08-27 Travel 1.2.840.1 1.2.131.950 7606 622822 Methodi 00:00:00 00:00:[address] 3.430.2.7 0.2.7.3.698 Ho spita .3.800459 084.8 l .8 2020-08-21 2020-08-21 Travel 1.2.840.1 1.2.491.247 0378 623744 Methodi 00:00:00 00:00:[address] 3.430.2.7 0.2.7.3.698 Ho spita .3.890316 084.8 l .8 2020-08-19 2020-08-19 Telephone Meli, 1.2.840.1 [id number] 274 9918747 Methodi 00:00:00 00:00:[address] 3.430.2.7 Hospit a .3.801940 l .8 2020-08-19 2020-08-19 Travel 1.2.840.1 1.2.872.053 1312 376198 Methodi 00:00:00 00:00:[address] 3.430.2.7 0.2.7.3.698 Ho spita .3.986622 084.8 l .8 2020-08-18 2020-08-18 Orders Carol Ann, 1.2.840.4 [id number] 2 [id number] Methodi 00:00:00 00:00:00 Only Sarai Lieberman 33550.1.1 410 s t 3.430.2.7 Hospit a .3.768091 l .8 2020-08-18 2020-08-18 Travel 1.2.840.1 1.2.721.716 3992 505852 Methodi 00:00:00 00:00:[address] 3.430.2.7 0.2.7.3.698 Ho spita .3.753874 084.8 l .8 2020-08-15 2020-08-15 Abstract Clark 1.2.840.1 [id number] 01889 88320 Methodi 00:00:00 00:00:[address] 3.430.2.7 Hospit a .3.344548 l .8 2020-07-02 2020-08-06 Clinical 1.2.840.1 [id number] 90101 Methodi 10:40:46 01:45:[address] 3.430.2.7 Hospit a .3.350687 l .8 2020-07-30 2020-07-30 Travel 1.2.840.1 1.2.589.367 1385 727775 Methodi 00:00:00 00:00:[address] 3.430.2.7 0.2.7.3.698 Ho spita .3.810047 084.8 l .8 2020-07-28 2020-07-28 Office Yazmin, 1.2.840.1 [id number] 24847 Methodi 08:35:45 10:11:52 Visit Ray 03908.1.[address] 3.430.2.7 Hospit a .3.245858 l .8 2020-07-28 2020-07-28 Telephone Rodas, 1.2.840.1 [id number] 2100 254275 Methodi 00:00:00 00:00:[address] 3.430.2.7 Hospit a .3.781770 l .8 2020-07-28 2020-07-28 Travel 1.2.840.1 1.2.938.627 1367 548875 Methodi 00:00:00 00:00:[address] 3.430.2.7 0.2.7.3.698 Ho spita .3.489997 084.8 l .8 2020-07-25 2020-07-25 Telephone Carol Ann, 1.2.840.1 [id number] Methodi 00:00:00 00:00:00 Sarai Lieberman 19069.1.1 314 s t 3.430.2.7 Hospit a .3.099708 l .8 2020-07-25 2020-07-25 Travel 1.2.840.1 1.2.918.450 6266 692669 Methodi 00:00:00 00:00:[address] 3.430.2.7 0.2.7.3.698 Ho spita .3.388946 084.8 l .8 2020-07-23 2020-07-23 Clinical Tori, 1.2.840.1 052240138 01040 96333 Methodi 08:39:40 08:44:40 Support Hoang 64804.1.[address] P. 3.430.2.7 Hospit a .3.882872 l .8 2020-07-23 2020-07-23 Travel 1.2.840.1 1.2.824.530 8766 607921 Methodi 00:00:00 00:00:[address] 3.430.2.7 0.2.7.3.698 Ho spita .3.144226 084.8 l .8 2020-07-11 2020-07-11 Travel 1.2.840.1 1.2.472.912 6876 854092 Methodi 00:00:00 00:00:[address] 3.430.2.7 0.2.7.3.698 Ho spita .3.715226 084.8 l .8 2020-07-02 2020-07-02 [facility] 1.2.840.4 [id number] 73940669 Methodi 00:00:00 00:00:[address] 3.430.2.7 Hospit a .3.409029 l .8 2020-07-02 2020-07-02 Travel 1.2.840.1 1.2.941.315 5935 660550 Methodi 00:00:00 00:00:[address] 3.430.2.7 0.2.7.3.698 Ho spita .3.531440 084.8 l .8 2020-06-23 2020-06-23 Office [facility], 1.2.840.1 [id number] 06277 41708 Methodi 09:36:17 11:00:44 Visit Ray 22948.1.[address] 3.430.2.7 Hospit a .3.926652 l .8 2020-06-23 2020-06-23 Telephone Rodas, 1.2.840.1 [id number] 2100 013269 Methodi 00:00:00 00:00:[address] 3.430.2.7 Hospit a .3.265920 l .8 2020-06-23 2020-06-23 Travel 1.2.840.1 1.2.006.415 2527 090665 Methodi 00:00:00 00:00:[address] 3.430.2.7 0.2.7.3.698 Ho spita .3.385413 084.8 l .8 2020-06-09 2020-06-09 [facility], 1.2.840.3 [id number] Methodi 00:00:00 00:00:[address] 3.430.2.7 Hospit a .3.148036 l .8 2020-06-06 2020-06-06 Refill Quinn, 1.2.840.1 [id number] 744524 1013 Methodi 00:00:00 00:00:00 Gabinocoral RodriguzeChelsieKristenChelsie 84116.1.[address] 3.430.2.7 Hospit a .3.040988 l .8 2020-06-03 2020-06-03 Telephone [facility], 1.2.840.3 [id number] Methodi 00:00:00 00:00:[address] 3.430.2.7 Hospit a .3.074186 l .8 2020-06-02 2020-06-02 Telephone [facility], 1.2.840.8 [id number] 41883680 Methodi 00:00:00 00:00:[address] 3.430.2.7 Hospit a .3.540690 l .8 2020-05-13 2020-05-13 Orders Provider, 1.2.840.1 343599340 2100 375774 Methodi 00:00:00 00:00:00 Only Historical 76711.1.1 108 s t 3.430.2.7 Hospit a .3.298795 l .8 2020-05-09 2020-05-09 Telephone [facility], 1.2.840.1 [id number] [id number] Methodi 00:00:00 00:00:00 Sarai Lieberman 06860.1.1 660 s t 3.430.2.7 Hospit a .3.371065 l .8 2020-05-09 2020-05-09 Telephone [facility], 1.2.840.5 [id number] 08613167 Methodi 00:00:00 00:00:[address] 3.430.2.7 Hospit a .3.055462 l .8 2020-05-08 2020-05-08 Telephone [facility], 1.2.840.5 [id number] Methodi 00:00:00 00:00:[address] 3.430.2.7 Hospit a .3.572707 l .8 2020-05-07 2020-05-07 Telephone [facility], 1.2.840.2 [id number] [id number] Methodi 00:00:00 00:00:[address] 3.430.2.7 Hospit a .3.108849 l .8 2020-05-05 2020-05-05 Telephone [facility], 1.2.840.0 3333900243 [id number] Methodi 00:00:00 00:00:[address] 3.430.2.7 Hospit a .3.433553 l .8 2020-04-25 2020-05-03 [facility], 1.2.840.1 [id number] 2100 394793 Methodi 17:33:00 13:39:00 Encounter Ray 42189.1.[address] 3.430.2.7 Hospit a .3.120532 l .8 2020-04-28 2020-04-28 Anesthesia Tomas Pinon 1.2.840.1 [id number] Methodi 13:38:00 19:40:00 Event Justine Catalan 87874.1.[address] 3.430.2.7 Hospit a .3.855208 l .8 2020-04-28 2020-04-28 Surgery [facility] 1.2.840.1 789790999 13792 12434 Methodi 13:00:00 17:10:[address] 3.430.2.7 Hospit a .3.139203 l .8 2020-04-25 2020-04-25 [facility], 1.2.840.1 [id number] 2100 015790 Methodi 10:00:00 17:32:00 Encounter Ray [address]44.1.[address] 3.430.2.7 Hospit a .3.014765 l .8 2020-04-25 2020-04-25 Office Yazmin, 1.2.840.1 506108111 61584 65200 Methodi 11:43:50 13:44:26 Visit Ray 53777.1.[address] 3.430.2.7 Hospit a .3.481585 l .8 2020-04-25 2020-04-25 Travel 1.2.840.1 1.2.758.174 4248 920604 Methodi 00:00:00 00:00:[address] 3.430.2.7 0.2.7.3.698 Ho spita .3.915745 084.8 l .8 2020-04-24 2020-04-24 [facility], 1.2.840.1 [id number] 2 [id number] Methodi 00:00:00 00:00:00 Surgery Sarai Corbin. 12384.1.1 524 s t 3.430.2.7 Hospit a .3.865301 l .8 2020-04-22 2020-04-22 Telephone Meli, 1.2.840.1 [id number] 755 9028728 Methodi 00:00:00 00:00:[address] 3.430.2.7 Hospit a .3.921611 l .8 2020-04-22 2020-04-22 Travel 1.2.840.1 1.2.413.470 2153 742436 Methodi 00:00:00 00:00:[address] 3.430.2.7 0.2.7.3.698 Ho spita .3.582522 084.8 l .8 2020-04-21 2020-04-21 Emergency OniAmber 1.2.840.1 032949110 2 [id number] Methodi 06:51:00 10:43:[address] 3.430.2.7 Hospit a .3.987465 l .8 2020-04-21 2020-04-21 Orders Meisenbach, 1.2.840.1 [id number] 46246040 Methodi 00:00:00 00:00:00 Only Sarai Corbin. 15714.1.1 550 s t 3.430.2.7 Hospit a .3.937353 l .8 2020-04-16 2020-04-16 Telephone Meisenbach, 1.2.840.1 645700140 [id number] Methodi 00:00:00 00:00:00 Sarai Corbin. 62130.1.1 673 s t 3.430.2.7 Hospit a .3.603539 l .8 2020-04-10 2020-04-10 Telephone Jeredimasmaria elena, 1.2.840.9 [id number] 20389074 Methodi 00:00:00 00:00:[address] 3.430.2.7 Hospit a .3.787364 l .8 2020-04-07 2020-04-07 Telephone Nahum, 1.2.840.1 [id number] 2099 887119 Methodi 00:00:00 00:00:[address] 3.430.2.7 Hospit a .3.600461 l .8 2020-04-01 2020-04-01 Orders Provider, 1.2.840.1 [id number] 2099 695235 Methodi 00:00:00 00:00:00 Only Historical 60683.1.1 049 s t 3.430.2.7 Hospit a .3.888629 l .8 2020-03-31 2020-03-31 Travel 1.2.840.1 1.2.715.687 7195 377371 Methodi 00:00:00 00:00:[address] 3.430.2.7 0.2.7.3.698 Ho spita .3.557476 084.8 l .8 2020-03-27 2020-03-27 Telephone Paula, Min 1.2.840.6 [id number] [id number] Methodi 00:00:00 00:00:[address] 3.430.2.7 Hospit a .3.255529 l .8 Results Test Description Test Time Test Comments Results Result Comments Source Novel Coronavirus 2019 Inhouse 2021-08-03 18:08:00 Test Item Value Reference Range Interpretation Comme nts Novel Coronavirus 2018 Negative Negative Posit bruno results are indicative of the Inhouse (test code = presenc e wmNGTP-UkF-1 RNA, clinical COVNONPUI) correlation wit h patient [...] qualitative detection of nucleic acid s from pnkRKVC-CpD-1 virus and diagn osis of SARS-CoV-2 virusinfection. It is an Emergency Use Authorization ( EUA) testauthorized by the U.[place]. FDA. BASIC METABOLIC [id number] 09:37:00 Test Item Value Reference Range Interpretation [...] = 9.0 mg/dL 8.0-10.5 N CA) PROTHROMBIN [id number] 09:32:00 Test Item Value Reference Range Interpretation [...] o prevent recurre nt infarct). 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 : 1955 Age/S: 66/F [address] [place] [address] Unit #: [id number] Loc: [place] [address] Phys: Bahman Chopra [facility] Acct: [id number] Dis Date: Status:ADM IN PHONE #: [phone] Exam Date: 06/17/2021 1320 FAX #: [phone] Reason: WATCHMAN EXAMS: CPT CODE: [id number] XR CHEST 1 V 89715 PROCEDURE INFORMATION: Exam: XR Chest Examdate and [...] Chopra Technologist: RT Taylor(R) Trnscrd Date/Time/By: 06/17/2021 (7095) : By: Susanna Orig Print D/T: S: 06/17/2021 (3652) PAGE 1 Signed ReportCOVID 19 Asymptomatic IH [id number] 12:29:00 Test Item Value Reference Range Interpretation [...] high or waivedcomplexit y tests. BASIC METABOLIC [id number] 11:37:00 Test Item Value Reference Range Interpretation [...] code = 9.0 mg/dL 8.0-10.5 N CA) [id number] 11:37:00 Test Item Value Reference Range Interpretation Comments PREALBUMIN (test code = PREALB) 24.3 mg/dL 16.0-40.0 N PROTHROMBIN [id number] 11:03:00 Test Item Value Reference Range Interpretation [...] o prevent recurre nt infarct). CBC W/AUTO [id number] 10:59:00 Test Item Value Reference Range Interpretation [...] 0.0-0.1 N NRBC#) - XR CHEST 2 [id number] 00:00:00 [facility] 1955 Sex: F FAX: Lele Olivera DO [phone] [place]: St: PRE FAX: Jean Paul Scales MD [phone] Name: LIO WATTS [facility] : 1955 Age/S: 66/F [address] [place] [address] Blvd Unit #: [id number] Loc: [place] [address] [id number] Dis Date: Status: PRE SDC PHONE #: [phone] Exam Date: 06/16/2021 1120 FAX #: [phone] Reason: PREOP EXAMS: CPT CODE: [id number] XR CHEST 2 V 08841 PROCEDURE INFORMATION: Exam: XR Chest Exam date [...] MD Technologist: RT Andree(R) Trnscrd Date/Time/By: 06/16/2021 (1138) : By: [email or web address] Orig Print D/T: S: 06/16/2021 (8374) PAGE 1 Signed ReportGastrointestinal [id number] 04:35:05 Test Item Value Reference Interpretation Comments [...] Rotavirus PCR (test Not Detected code = 3151027) Salmonella PCR (test Not Detected code = [...] PCR Not Detected (test code = 7124) [facility] 1 [id number] 19:17:40EXAMINATION: XR ABDOMEN 1 VW CLINICAL HISTORY: [...] clips are noted.[id number] [place] [facility] 1 [id number] 19:41:02EXAMINATION: OR FL < 1 HOUR C-arm fluoroscopy was requested in OR. Location: [facility] OR room 6 Procedure: EGD WITH [...] arm fluoroscopy was requested in OR. Location: [facility] OR room 6 Procedure: EGD WITH BOTOX INJECTION INTO THE PYLORUS, ENDOFLIP, ON TABLE ESOPHAGRAM (N/A ) Start: 1140 End:1222 FluoroTime: .19sec Dose: 7.8mGy Tech: A.BIMPRESSION:Intraoperative fluoroscopic images. Radiologist was not present during the examination.Separate operative report will be issued by the physician performingthe procedure.[id number] 2020-09-08 19:30:47 Test Item Value Reference Range Interpretation Comments Case number (test [id number] code = 3445533) Surgical pathology See link below for PDF report (test code = Lab Report 2255) Result status (test This is Supplemental code = 9125440) Report for [id number] [facility] 1 Vw Auipfunh6785-30-08 23:06:58EXAMINATION: XR CHEST 1 VW PORTABLE HISTORY: [...] enlarged, similar to prior. Bilateral shoulder arthroplasties. [facility]-[id number] Interface, Radiology Results - 09/06/2020 6:09PM CDT [...] silhouette is enlarged, similar to prior.Bilateral shoulder arthroplasties.[facility]-[id number] E. DeBakey Department of Veterans Affairs Medical CenterTbqeqyroGgtsfp6008-17-12 16:47:23Kirit Flood MD 09/05/2020 11:48 [address]: [...] Yes Number of Attempts at Approach: [address] [place] [address] 12 dtmu7733-15-93 23:21:56 Test Item Value Reference Range Interpretation [...] T wave abnormality, consider anterior ischemia-Abnormal ECG- [facility]COVID-19 qualitative [id number] 22:48:41 Test Item Value Reference Range Interpretation Comments Interpretation (test Negative results do code = 0873459) not preclude 2019-nCoV infection and should not be used as the sole basis for treatment or other patient management decisions. Negative results must be combined with clinical observations, patient history, and epidemiological information. COVID-19 qualitative Not-Detected Not-Detected RT-PCR result (test code = 27869-2) COVID-19 qualitative See link below for C ase Number: RT-PCR (test code = PDF Lab Report [id number]) [facility]2021-04-09 16:31:00 Test Item Value Reference Range Interpretation Comments POC Activated Clotting Time (test code 153 s = POC Activated Clotting Time) [address]04-09 16:31:00 Test Item Value Reference Range Interpretation Comments POC Activated Clotting Time (test code 153 s = POC Activated Clotting Time) [address]04-09 16:31:00 Test Item Value Reference Range Interpretation Comments POC Activated Clotting Time (test code 153 s = POC Activated Clotting Time) [address]04-09 16:31:00 Test Item Value Reference Range Interpretation Comments POC Activated Clotting Time (test code 153 s = POC Activated Clotting Time) [address]04-09 16:31:00 Test Item Value Reference Range Interpretation Comments POC Activated Clotting Time (test code 153 s = POC Activated Clotting Time) [address]04-09 16:31:00 Test Item Value Reference Range Interpretation Comments POC Activated Clotting Time (test code 153 s = POC Activated Clotting Time) [address]04-09 16:31:00 Test Item Value Reference Range Interpretation Comments POC Activated Clotting Time (test code 153 s = POC Activated Clotting Time) [address]04-09 14:37:00 Test Item Value Reference Range Interpretation Comments POC Activated Clotting Time (test code 454 s = POC Activated Clotting Time) [address]04-09 14:37:00 Test Item Value Reference Range Interpretation Comments POC Activated Clotting Time (test code 454 s = POC Activated Clotting Time) [address]04-09 14:37:00 Test Item Value Reference Range Interpretation Comments POC Activated Clotting Time (test code 454 s = POC Activated Clotting Time) [address]04-09 14:37:00 Test Item Value Reference Range Interpretation Comments POC Activated Clotting Time (test code 454 s = POC Activated Clotting Time) [facility] CampusVweyaneMRXPWGGNCM0518-48-99 14:37:00 Test Item Value Reference Range Interpretation Comments POC Activated Clotting Time (test code 454 s = POC Activated Clotting Time) [facility] CampusTyttjgwRHWCEKREUM3552-93-04 14:37:00 Test Item Value Reference Range Interpretation Comments POC Activated Clotting Time (test code 454 s = POC Activated Clotting Time) [facility] CampusNgfpnnsTUQKTBFBDV9650-80-50 14:37:00 Test Item Value Reference Range Interpretation Comments POC Activated Clotting Time (test code 454 s = POC Activated Clotting Time) [facility] CampusRskdshgJXFMIUFRNE0037-63-96 14:13:00 Test Item Value Reference Range Interpretation Comments POC Activated Clotting Time (test code 354 s = POC Activated Clotting Time) [facility] CampusPhyyxisXLPLSZMHBA5568-54-18 14:13:00 Test Item Value Reference Range Interpretation Comments POC Activated Clotting Time (test code 354 s = POC Activated Clotting Time) [facility] CampusMlgrsnwLSJPZBSGAV5962-52-73 14:13:00 Test Item Value Reference Range Interpretation Comments POC Activated Clotting Time (test code 354 s = POC Activated Clotting Time) [facility] CampusWvourcuYDKCZSWQNC7358-22-76 14:13:00 Test Item Value Reference Range Interpretation Comments POC Activated Clotting Time (test code 354 s = POC Activated Clotting Time) [facility] CampusDytzcgfLJJAONNDKJ2458-08-09 14:13:00 Test Item Value Reference Range Interpretation Comments POC Activated Clotting Time (test code 354 s = POC Activated Clotting Time) [facility] CampusVynpmpaZCTGPWSVBP5343-29-35 14:13:00 Test Item Value Reference Range Interpretation Comments POC Activated Clotting Time (test code 354 s = POC Activated Clotting Time) [facility] CampusEmvlfclQBMPDISLCI3299-74-88 14:13:00 Test Item Value Reference Range Interpretation Comments POC Activated Clotting Time (test code 354 s = POC Activated Clotting Time) [facility] BANK NMDZCXK8884-88-17 10:37:00Negative (08/29/20 5:37 AM) [facility] SSKEC0937[facility]-22 10:37:58749Cqwqccho HermannCHEM PANEL 2020-08-29 10:37:0028[facility]annCHEM NPXEB4293-09-93 10:37:001.01[facility] HermannCHEM GWCPM4302-34-02 10:37:96525Bycpeipt HermannCHEM BMABS7563-41-40 10:37:003.8[facility] HermannCHEM PEJXP2197-40-96 10:37:04188Tqgcporz HermannCHEM HKBLM5508-73-04 10:37:0028[facility] HermannCHEM KQTMY1275-02-49 10:37:009.8 [facility]annCHEM OMAFP1032-59-49 10:37:0011.8[facility] HermannCHEM PANEL 2020-08-29 10:37:0059[facility] HermannCHEM LBMYV7726-79-43 10:37:002.9[facility] JoqvwjzYOUVIGLUKV9638-72-99 10:37:006.8[facility] EqxfdnzEAEYBNNHVY7326-16-70 10:37:004.47[facility] VwmyksbVHFIVGTRCD2022-94-86 10:37:0010.6[facility] AAGPTTXTCT8438-37-73 10:37:0034.0[facility] ImegaykTQBUOHZGRF3258-85-45 10:37:00 76.1[facility] AscfonqQNSPWFATEO0073-72-96 10:37:00 Test Item Value Reference Range Interpretation Comments MCH (test code = MCH) 23.8 pg 27.0-31.0 [facility] EmkjfeoGQYEXFWHJJ2148-80-97 10:37:0031.3[facility] HermannHEMATOLOGY 2020-08-29 10:37:0018.2[facility] FkgexcpMOOFZWMZVE2049-61-99 10:37:33735Tuwpyenl QkeorioGWYCVKQHMS1415-74-52 10:37:007.5[facility] UvlmpftVCBOUOLRBJ1986-90-82 10:37:00 Test Item Value Reference Range Interpretation Comments PT (test code = PT) 12.8 s 12.0-14.7 [facility] MjuywyvGTVJAXBKLV5001-85-73 10:37:00 Test Item Value Reference Range Interpretation Comments INR (test code = INR) 0.97 1 0.85-1.17 [facility] MxebenpUXFCEQKGNQ4674-85-24 10:37:00 Test Item Value Reference Range Interpretation Comments PTT (test code = PTT) 25.0 s 22.9-35.8 [facility] HxuxkvaCPHCSOALVY1481-30-96 10:37:0070.5[facility]annHEMATOLOGY 2020-08-29 10:37:0018.8[facility] JrbruvsUDGPXILGBO6132-85-07 10:37:009.5[facility] GhuveqoSTVBHBDWPI0199-99-22 10:37:000.9[facility] FwagwyzWISTXJCZZM2492-17-87 10:37:000.3[facility] JywcpspFYIATXYUJJ2705-76-76 10:37:004.8[facility] ENBDSYHUDF6916-24-86 10:37:001.3[facility] YqfzojsABIBSVOUNT2472-90-15 10:37:000.6 [facility] KoiwwxfGHSIMUFGNO0114-24-64 10:37:000.1[facility] HermannHEMATOLOGY 2020-08-29 10:37:001+ *ABN*(08/29/20 5:37 AM)[facility] QoqyurdSUABNXBLQM1962-63-70 10:37:00Not Detected (08/29/20 5:37 AM)[facility]annBLOOD BANK RESULTS 2020-08-29 10:37:00Negative (08/29/20 5:37 AM)[facility] HermannCHEM FXMWN8191-42-89 10:37:28122Khcggjlm HermannCHEM GXRNF3405-07-62 10:37:0028[facility] HermannCHEM NJKZF3678-69-21 10:37:001.01[facility] HermannCHEM EVIKY0638-29-57 10:37:34590 [facility]annCHEM YKJZK7707-20-81 10:37:003.8[facility] HermannCHEM PANEL 2020-08-29 10:37:65907Skeuaxka HermannCHEM DLIHH3545-53-22 10:37:0028[facility] HermannCHEM NVPAC0749-63-58 10:37:009.8[facility] HermannCHEM ZIDYX8220-31-81 10:37:0011.8[facility] HermannCHEM ZGBGE8760-19-22 10:37:0059[facility] HermannCHEM KLZLV2670-38-78 10:37:002.9[facility] UaaibrrGUIXWDGLZO4404-29-34 10:37:006.8 [facility] DwfggmoAXFNYHDZKK9042-12-20 10:37:004.47[facility] HermannHEMATOLOGY 2020-08-29 10:37:0010.6[facility] AwgsptvJRVAOVOYKU2993-93-51 10:37:0034.0[facility] PglprugGLJOFFNDQC2329-20-96 10:37:0076.1[facility] ApijspvYNRSXUFUHF3411-15-37 10:37:00 Test Item Value Reference Range Interpretation Comments MCH (test code = MCH) 23.8 pg 27.0-31.0 [facility] ZgsxeanDRORDFYSWK4196-64-75 10:37:0031.3[facility] HermannHEMATOLOGY 2020-08-29 10:37:0018.2[facility] CzwcwsrOGKODIOXIQ6273-02-97 10:37:34094Bndcryjv EflvixeTATRDBIXLQ4444-42-86 10:37:007.5[facility] HodgjwxRBVRSNWTOR1211-84-20 10:37:00 Test Item Value Reference Range Interpretation Comments PT (test code = PT) 12.8 s 12.0-14.7 [facility] ZkuerhcSXDCTAZSQO4354-51-07 10:37:00 Test Item Value Reference Range Interpretation Comments INR (test code = INR) 0.97 1 0.85-1.17 [facility] BefxngcNSFTEYHDTY9626-27-63 10:37:00 Test Item Value Reference Range Interpretation Comments PTT (test code = PTT) 25.0 s 22.9-35.8 [facility] RssjbngCDVMHKPYCR3470-31-34 10:37:0070.5[facility] HermannHEMATOLOGY 2020-08-29 10:37:0018.8[facility] ZqjiyrcMWQBPOGNPQ7743-53-72 10:37:009.5[facility] GkvdhjzORFXXWYNAT8761-74-99 10:37:000.9[facility] NrvtigjCTXQHMVVLO0463-51-14 10:37:000.3[facility] BsnabtcWZPQEMOPMU4593-32-14 10:37:004.8[facility] QGANXAESMJ0527-67-60 10:37:001.3[facility] HbkacaqUAXCANDXYH0567-07-98 10:37:000.6 [facility] LpbaxqjZFGZADQPDN4661-46-42 10:37:000.1[facility] HermannHEMATOLOGY 2020-08-29 10:37:001+ *ABN*(08/29/20 5:37 AM)[facility] RgvubxeEFUNTZNPWS9620-23-84 10:37:00Not Detected (08/29/20 5:37 AM)[facility]annBLOOD BANK RESULTS 2020-08-29 10:37:00Negative (08/29/20 5:37 AM)[facility] HermannCHEM QBIFU3301-84-02 10:37:17646Cthdskwf HermannCHEM FKOAQ8174-70-18 10:37:0028[facility] HermannCHEM VPTUJ4216-59-30 10:37:001.01[facility] HermannCHEM TUVKV2526-89-19 10:37:95769 [facility] HermannCHEM UGOEU7006-59-23 10:37:003.8[facility] HermannCHEM PANEL 2020-08-29 10:37:24213Dsxtqmka HermannCHEM FNWGU1868-55-70 10:37:0028[facility] HermannCHEM KEJZP8177-43-09 10:37:009.8[facility] HermannCHEM NOJJT2363-72-46 10:37:0011.8[facility] HermannCHEM LKVSY7840-23-18 10:37:0059[facility] HermannCHEM ENLFL8230-32-16 10:37:002.9[facility] RrzqdmhCGLKQNDPXJ7399-88-81 10:37:006.8 [facility] FrmepucNBLRKDVITS8738-74-83 10:37:004.47[facility] HermannHEMATOLOGY 2020-08-29 10:37:0010.6[facility] VppkadnFAHWACJASC8269-84-44 10:37:0034.0[facility] RmkurmgFGEDCUNYHA9102-76-12 10:37:0076.1[facility] RukyjmmKXOODKZIIU8128-12-09 10:37:00 Test Item Value Reference Range Interpretation Comments MCH (test code = MCH) 23.8 pg 27.0-31.0 [facility] DkyomvoGXSDMIAYYK3451-11-97 10:37:0031.3[facility] HermannHEMATOLOGY 2020-08-29 10:37:0018.2[facility] LekqcgdJREGMSEGZQ2586-32-81 10:37:89596Bfpumgzi OcwcsifFQKLPGDFJP6971-96-10 10:37:007.5[facility] PcchkabPVDOQPOPZY8058-18-24 10:37:00 Test Item Value Reference Range Interpretation Comments PT (test code = PT) 12.8 s 12.0-14.7 [facility] WqvtkmkAQUCAHQZAX1507-78-72 10:37:00 Test Item Value Reference Range Interpretation Comments INR (test code = INR) 0.97 1 0.85-1.17 [facility] PfwvwhnVLOHTVRODD0744-60-98 10:37:00 Test Item Value Reference Range Interpretation Comments PTT (test code = PTT) 25.0 s 22.9-35.8 [facility] KcpmzipQTFCRPJXAO1673-80-85 10:37:0070.5[facility] HermannHEMATOLOGY 2020-08-29 10:37:0018.8[facility] PfhvvzdZHWBDDNZTY0526-38-52 10:37:009.5[facility] LefznkkFMNVOKRXIG0836-73-56 10:37:000.9[facility] QddhhqrAZLWTIJWKL9974-82-63 10:37:000.3[facility] FlwzyjgIOJAANRVGC7364-80-55 10:37:004.8[facility] ARFHWXFJWF5351-62-87 10:37:001.3[facility] TbxwqicDXJKPOFUAM6975-55-82 10:37:000.6 [facility] NeyfznbSLRVRZERRT9968-67-45 10:37:000.1[facility] HermannHEMATOLOGY 2020-08-29 10:37:001+ *ABN*(08/29/20 5:37 AM)[facility] WnglmvtBCXQDPRCYL3537-76-19 10:37:00Not Detected (08/29/20 5:37 AM)[facility] HermannBLOOD BANK RESULTS 2020-08-29 10:37:00Negative (08/29/20 5:37 AM)[facility] HermannCHEM RFATJ6748-57-82 10:37:27173Azuslcch HermannCHEM XIQYO7732-64-91 10:37:0028[facility] HermannCHEM EBFGV0521-77-70 10:37:001.01[facility] HermannCHEM ZGTWN6581-40-71 10:37:53198 [facility] HermannCHEM EJJIG6699-35-05 10:37:003.8[facility] HermannCHEM PANEL 2020-08-29 10:37:02629Orbdemnb HermannCHEM GFSSD9760-01-42 10:37:0028[facility] HermannCHEM DVLZB1952-18-55 10:37:009.8[facility] HermannCHEM XYCMJ0973-97-26 10:37:0011.8[facility] HermannCHEM CJQAV4922-60-52 10:37:0059[facility] HermannCHEM BZUOH6837-65-99 10:37:002.9[facility] TfiisivVKCIUVKQPN5910-29-11 10:37:006.8 [facility] QoywfnaHPOPINGLXG1481-67-02 10:37:004.47[facility] HermannHEMATOLOGY 2020-08-29 10:37:0010.6[facility] HtbehkeSETCAYEQKX7188-32-76 10:37:0034.0[facility] XmbgrxrXXJPULGTNR7284-04-05 10:37:0076.1[facility] ZxctpiaDMMMMVKABB2390-56-43 10:37:00 Test Item Value Reference Range Interpretation Comments MCH (test code = MCH) 23.8 pg 27.0-31.0 [facility] HsmfdbpHIDZFOFGWJ9270-19-67 10:37:0031.3[facility] HermannHEMATOLOGY 2020-08-29 10:37:0018.2[facility] OdbkmtfFUQFCXDTER3312-69-90 10:37:22672Tnyrbfoj ByjkecgSUYHNBFNCT1128-52-36 10:37:007.5[facility] ParmnvwFWQDGEZRXU3738-37-57 10:37:00 Test Item Value Reference Range Interpretation Comments PT (test code = PT) 12.8 s 12.0-14.7 [facility] GttmlmtZMYMTRWTZL3028-09-88 10:37:00 Test Item Value Reference Range Interpretation Comments INR (test code = INR) 0.97 1 0.85-1.17 [facility] AjbrohyVMYKWUMJLD9218-02-83 10:37:00 Test Item Value Reference Range Interpretation Comments PTT (test code = PTT) 25.0 s 22.9-35.8 [facility] QcgqqejDOHEOKIVTW6159-71-34 10:37:0070.5[facility] HermannHEMATOLOGY 2020-08-29 10:37:0018.8[facility] HuegxqrXZYDIFETYN5486-91-93 10:37:009.5[facility] CwxwykzIMWTBKLOGZ4175-60-90 10:37:000.9[facility] PfrcnudEWKIUWDDWI0191-58-08 10:37:000.3[facility] BdlgedxFQELPZUQOZ6983-63-76 10:37:004.8[facility] PFFFVWWOLC9432-02-69 10:37:001.3[facility] DvseuehWZXRVAWGSA5436-34-19 10:37:000.6 [facility] AecctedFODKYRCDLM6388-05-64 10:37:000.1[facility] HermannHEMATOLOGY 2020-08-29 10:37:001+ *ABN*(08/29/20 5:37 AM)[facility] DfixasaLORUCARNOQ9642-76-93 10:37:00Not Detected (08/29/20 5:37 AM)[facility] HermannBLOOD BANK RESULTS 2020-08-29 10:37:00Negative (08/29/20 5:37 AM)[facility] HermannCHEM TPFHL2174-13-77 10:37:91470Pkhnpuic HermannCHEM IYLAU3635-64-33 10:37:0028[facility] HermannCHEM AWUQK9393-22-67 10:37:001.01[facility] HermannCHEM JNXCO3364-90-31 10:37:32047 [facility] HermannCHEM FABFQ7763-26-29 10:37:003.8[facility] HermannCHEM PANEL 2020-08-29 10:37:94852Cksndyjm HermannCHEM NUMHD3909-49-92 10:37:0028[facility] HermannCHEM WWSYL8634-05-28 10:37:009.8[facility] HermannCHEM AWXPX8786-83-61 10:37:0011.8[facility] HermannCHEM BDMYI7297-58-40 10:37:0059[facility] HermannCHEM JDEUQ5943-80-89 10:37:002.9[facility] SewspjhVGLCHZNFPF6902-49-47 10:37:006.8 [facility] HyffyimMIPSTZCIQV2155-33-50 10:37:004.47[facility] HermannHEMATOLOGY 2020-08-29 10:37:0010.6[facility] NnoehyxZMNCNRFKGP2593-88-13 10:37:0034.0[facility] NobacjrTFUUCAFIFI9569-33-72 10:37:0076.1[facility] EglmnuySPMZFMCNRP0707-99-87 10:37:00 Test Item Value Reference Range Interpretation Comments MCH (test code = MCH) 23.8 pg 27.0-31.0 [facility] TgdytneEJKKYZOPRQ1444-74-22 10:37:0031.3[facility] HermannHEMATOLOGY 2020-08-29 10:37:0018.2[facility] NhockzgZORLEHXZUB3407-01-82 10:37:80787Agikrkci XaujazuWFKPXYWHOT5467-68-55 10:37:007.5[facility] JrxilebKEDVVYAHBH4157-46-76 10:37:00 Test Item Value Reference Range Interpretation Comments PT (test code = PT) 12.8 s 12.0-14.7 [facility] QlxegnjQHMJYOSGPS0283-09-54 10:37:00 Test Item Value Reference Range Interpretation Comments INR (test code = INR) 0.97 1 0.85-1.17 [facility] WkypmsdIIIGRIPPGU0767-96-22 10:37:00 Test Item Value Reference Range Interpretation Comments PTT (test code = PTT) 25.0 s 22.9-35.8 [facility] FehufjdUTHSULWFHG3604-52-32 10:37:0070.5[facility] HermannHEMATOLOGY 2020-08-29 10:37:0018.8[facility] MbbqeisOHAZWBZNMC0198-58-98 10:37:009.5[facility] KwumosbYXCBZJXVSX3964-50-60 10:37:000.9[facility] BcxkphaUBDBWWSWQD8783-80-53 10:37:000.3[facility] XrvvinzGIBWZBWRYZ6717-54-81 10:37:004.8[facility] JAYCZRQFZR5389-22-60 10:37:001.3[facility] ZiwzmykZOZQNZOGPQ7798-88-37 10:37:000.6 [facility] SfbmyahSVANBMVMSC3706-33-51 10:37:000.1[facility] HermannHEMATOLOGY 2020-08-29 10:37:001+ *ABN*(08/29/20 5:37 AM)[facility] GbshoktFVCWQKPYLO1315-15-08 10:37:00Not Detected (08/29/20 5:37 AM)[facility]annBLOOD BANK RESULTS 2020-08-29 10:37:00Negative (08/29/20 5:37 AM)[facility] HermannCHEM GNZYC2714-51-52 10:37:15588Cpdojzzb HermannCHEM ICGUE4286-69-21 10:37:0028[facility] HermannCHEM VTDYG8333-84-60 10:37:001.01[facility] HermannCHEM LHFCK6126-97-41 10:37:14099 [facility] HermannCHEM NAETQ4753-74-82 10:37:003.8[facility] HermannCHEM PANEL 2020-08-29 10:37:58652Nlmkdxux HermannCHEM YFENH5201-36-68 10:37:0028[facility] HermannCHEM NKGFB9085-23-28 10:37:009.8[facility] HermannCHEM UUNLL8905-75-58 10:37:0011.8[facility] HermannCHEM LFBTI2829-42-90 10:37:0059[facility] HermannCHEM QJNUM2253-83-95 10:37:002.9[facility] XxmjdqeSIJHDDEGLI8751-04-83 10:37:006.8 [facility] NhdwtefBJAGVLFSEF4609-26-25 10:37:004.47[facility] HermannHEMATOLOGY 2020-08-29 10:37:0010.6[facility] NlncpwmTRJSXCSCTO6093-43-20 10:37:0034.0[facility] DrtfedfIBLUFUVHPI5135-90-79 10:37:0076.1[facility] DgauubxLQMJGXBCGD2086-93-64 10:37:00 Test Item Value Reference Range Interpretation Comments MCH (test code = MCH) 23.8 pg 27.0-31.0 [facility] IrlalquJODMPAXGUQ0233-72-15 10:37:0031.3[facility] HermannHEMATOLOGY 2020-08-29 10:37:0018.2[facility] RkkjbrrLSSBHDBWDY2718-24-13 10:37:52668Ujyofqnp FqrjuriEBIQNQBBDV2436-27-65 10:37:007.5[facility] QmjwslwDWIGJPIHLS8658-89-11 10:37:00 Test Item Value Reference Range Interpretation Comments PT (test code = PT) 12.8 s 12.0-14.7 [facility] PcxjqupKZVOUTCWQN4979-26-12 10:37:00 Test Item Value Reference Range Interpretation Comments INR (test code = INR) 0.97 1 0.85-1.17 [facility] HmgmaymIFSJYEWKOL6234-62-03 10:37:00 Test Item Value Reference Range Interpretation Comments PTT (test code = PTT) 25.0 s 22.9-35.8 [facility] ErwmfseNXMUVXXSLT1352-91-84 10:37:0070.5[facility] HermannHEMATOLOGY 2020-08-29 10:37:0018.8[facility] OplfqyxBELPXYIMQI8035-82-92 10:37:009.5[facility] FlpgebdGBDJGPMJTR2125-13-50 10:37:000.9[facility] TugwfslYMGBIFYHRJ6466-79-00 10:37:000.3[facility] PccyocpBPLIUYIFIE3448-56-88 10:37:004.8[facility] YPXGVZPFGG8016-77-33 10:37:001.3[facility] XmtaghvNFFTKIXXUJ9142-46-42 10:37:000.6 [facility] GmhwqojVTFXRKAOJR6707-35-95 10:37:000.1[facility] HermannHEMATOLOGY 2020-08-29 10:37:001+ *ABN*(08/29/20 5:37 AM)[facility] IrcdozqNCPJAYJALM2677-76-79 10:37:00Not Detected (08/29/20 5:37 AM)[facility] HermannBLOOD BANK RESULTS 2020-08-29 10:37:00Negative (08/29/20 5:37 AM)[facility] HermannCHEM INLNR6872-93-71 10:37:14208Rlanymed HermannCHEM KYLAQ0297-86-11 10:37:0028[facility] HermannCHEM PVWUC9593-06-59 10:37:001.01[facility] HermannCHEM ORHQQ5590-35-74 10:37:42648 [facility] HermannCHEM QBTYQ4515-54-93 10:37:003.8[facility] HermannCHEM PANEL 2020-08-29 10:37:00819Bpydjxkk HermannCHEM GOTZH4236-30-56 10:37:0028[facility] HermannCHEM GXJTV7459-34-57 10:37:009.8[facility] HermannCHEM XKFEC9840-62-74 10:37:0011.8[facility] HermannCHEM IVXMN9226-75-02 10:37:0059[facility] HermannCHEM BOLTV4470-39-15 10:37:002.9[facility] MvpiqiaKIIWGODLXY5419-25-20 10:37:006.8 [facility] OurnfanNHRNSTSWON6283-18-53 10:37:004.47[facility] HermannHEMATOLOGY 2020-08-29 10:37:0010.6[facility] BwmipoxCICNRUMEXR6419-34-50 10:37:0034.0[facility] JfptuaiLAUZDCJBTT2880-70-55 10:37:0076.1[facility] XwmlrxdAOIGSZCCQV4031-55-14 10:37:00 Test Item Value Reference Range Interpretation Comments MCH (test code = MCH) 23.8 pg 27.0-31.0 [facility] HjhuyaiZCYECACNGL3463-25-17 10:37:0031.3[facility] HermannHEMATOLOGY 2020-08-29 10:37:0018.2[facility] KsnvrtnEXPUITARMR9809-13-63 10:37:07883Jnbdrgeu WrpnbwuALNFPAJNEQ3163-57-36 10:37:007.5[facility] EcnpxivJDWPPAVGOU5216-63-04 10:37:00 Test Item Value Reference Range Interpretation Comments PT (test code = PT) 12.8 s 12.0-14.7 [facility] PydlgjlZQOFHRNVRX9304-15-51 10:37:00 Test Item Value Reference Range Interpretation Comments INR (test code = INR) 0.97 1 0.85-1.17 [facility] EugnvauJBMOORSPAI2715-55-77 10:37:00 Test Item Value Reference Range Interpretation Comments PTT (test code = PTT) 25.0 s 22.9-35.8 [facility] EnkkvnsXWERTYDGVE0498-32-79 10:37:0070.5[facility] HermannHEMATOLOGY 2020-08-29 10:37:0018.8[facility] IvhxxtcFYXBUDIAMM1400-94-86 10:37:009.5[facility] MncduhgKPNPHYWSOV8467-91-30 10:37:000.9[facility] BsxqyeaMNHMBFLNAM6475-56-15 10:37:000.3[facility] HxlqkoyQIJVAPCYYL0081-76-98 10:37:004.8[facility] TXBTQYZWPV9400-96-69 10:37:001.3[facility] EgsshsoKQGBRJESPJ6146-51-23 10:37:000.6 [facility] OttlrxxLAFFVZJMJZ7092-08-72 10:37:000.1[facility] HermannHEMATOLOGY 2020-08-29 10:37:001+ *ABN*(08/29/20 5:37 AM)[facility] VhepirzNHQRNSRTNZ1951-12-72 10:37:00Not Detected (08/29/20 5:37 AM)[facility] 2020-08-27 23:14:39PROCEDURE: NM GASTRIC EMPTYING [...] rate, with complete emptying by 4 hours. [facility]-[id number] Interface, Radiology Results 08/27/2020 6:17 PM CDT [...] rate, with complete emptying by 4 hours. [id number] 2020-[facility]-09 21:24:58 Test Item Value Reference Range Interpretation Comments Misc test HIV-1 RNA QUAL PCR name (test code = 2566) Misc test see note Human Immunodef iciency result (test Virus 1 (HIV-1) by code = 1730) Qualitative Steam Table Associate-M ediated Amplification ( TMA) [facility] test code 3100966 HIV-1 by Qualit ative TMA See Note SOURCE/SPECIMEN PLASMA HIV-1 RNA, QUAL ITATIVE TMA HIV-1 RNA, QL TMA T BALER Test Not Performed. Initial testing necessi tated a repeat, but the re was insufficient sa mple to perform repeat. SAMPLE LEFT FOR REPEAT IS 50 uL. NEED 1000 u L TO RUN REPEAT. This te st was performed using the APTIMA(R) HIV-R NA Qualitative Ass ay (Gen-Probe). ======== ======== Te st performed by:HTP[address] [place] [id number] KYLE (test HIVQL - HIV-1 RNA, code = KYLE) Qualitative TMA (FROZEN)AR Test Code: 8690696Axquua: plasma Gnosticism [facility] duplex venous upper [id number] 04:57:00 Vascular Ultrasound Laboratory Upper Extremity Venous Report [id number] [address] Pat.Name: MAC LIOMaria Elena Lozano.ID: [id number] St.Date: 04/30/2020 Refer.MD: ELISEO ARCE MD Exam Time: 5:04:00 PM Study Type:UE Venous Age: 9 1955,65Y Sex: FEMALE Sonogrphr: Dwayne Manio, RVS, RCS Pat. Stat.:Inpatient Room: [place] [address] 2020 Tape Vol: EDGAR, CPT - 4: 66525 Echo Event ID:[id number] Order ID: [id number] Reason for Study:Arm swelling or pain, DVT [...] veins.*Preliminary result reported to ASHLEY Santos @ 5275 on 04/30/20.PHYSICIAN INTERPRETATION Venous examination of the both upper extremities and neck demonstratedno evidence of deep venous thrombosis. Total superficial vein thrombosis of the right basilic vein. FINDINGS: Signed 04/30/2020 10:57 PMFrancis Cabral MD, RPVIIntnathaly, Radiology Results In - 04/30/2020 10:58 PM CST Vascular Ultrasound Laboratory Upper Extremity Venous Report [id number] [address] Pat.Name: LIO WATTS Pat.ID: [id number] .Date: 04/30/2020 Refer.MD: ELISEO ARCE MD Exam Time: 5:04:00 PM Study Type:UE Venous Age: 9 1955,65Y Sex: FEMALE Sonogrphr: IBIS Espinosa, SANKET Pat. Stat.:Inpatient Room: [place] [address] 2020 Tape Vol: JM, CPT - 4: 11053 Echo Event ID:[id number] Order ID: [id number] Reason for Study:Arm swelling or pain, DVT [...] veins.*Preliminary result reported to ASHLEY Santos @ 1915 on 04/30/20.PHYSICIAN INTERPRETATION Venous examination of the both upper extremities and neck demonstratedno evidence of deep venous thrombosis. Total superficial vein thrombosis of the right basilic vein. FINDINGS: ------Signed 04/30/2020 10:57 PMFrancis Cabral MD, [facility] Chest 2 [id number] 22:21:01EXAMINATION: XR CHEST 2 VW CLINICAL HISTORY: [...] cardiopulmonary process or active disease of the chest.[id number] AllianceMidline Unsuccessful [id number] 17:14:34ANicole zhang RN 04/30/2020 11:25 AMMidline Unsuccessful [...] PIV g.20 in lower arm .[facility] Abdomen 1 Vw [id number] 16:20:14EXAMINATION: XR ABDOMEN 1 VW PORTABLE CLINICAL HISTORY: Abdominal pain post op COMPARISON: No prior IMPRESSION:1.Residual barium within the colon throughout. No small bowel obstruction noted. [facility]-2U [id number] Interface, Radiology Results Incoming - 04/30/2020 10:23 AM CST EXAMINATION: XR ABDOMEN 1 VW PORTABLECLINICAL HISTORY: Abdominalpain post opCOMPARISON: No priorIMPRESSION:1.Residual barium within the colon throughout. No smallbowel obstruction noted.[facility]-[id number] Regional Medical CenterFkdwbkpxCmgyvb0291-36-79 20:57:57Carlee Malloy MD 04/28/2020 2:59 PMAirwayPerformed by: Carlee Malloy MDAuthorized by: Carlee Malloy MD Location: ORUrgency: ElectiveDifficult Airway: No Anesthesiologist: Kvng Malloy, FLORENTINesident/ASSOCIATE PUBLISHER/AA: Allan Morocho, DOPerformed by: resident/ASSOCIATE PUBLISHER/AAPreoxygenated hmag440% O2: Yes C- spine Precautions Maintained Throughout: [...] of Attempts at Approach: 1 [facility] AllianceTransthoracic Echocardiogram Complete, (w Contrast, Strain and 3D if needed)2020-04-28 00:20:00 Echocardiography Report [address] [place] [address] Pat.Name: LIO WATTS.ID: [id number] St.Date: 04/27/2020 Refer.MD: ELISEO ARCE MD Exam Time: 2:21:00 PM Study Type:Routine Echo Height: 64in Weight: 213lb BSA: 2.01 m2 Age: 9 1955,65Y Sex: FEMALE BP: 128/89 HR: 102 bpm Sonogrphr: SANKET Perkins Pat. Stat.:Inpatient Room: [facility] Study Status:Final Echo Event ID:[id number] Order ID: [id number] Reason for Study:Atrial FibrillationHistory / Clinical:Hypertension Procedures: [...] estimate PA systolic pressure. MEASUREMENTS: 2DParasternal Long Marion Ao An 2.2 cm LVPWd 1 cm [...] 04/27/2020 6:21 PM CST Echocardiography Report [id number] [facility], [place] [place] [address], [place] [address] Pat.Name: LIO WATTS.ID: [id number] .Date: 04/27/2020 Refer.MD: ELISEO ARCE MD Exam Time: 2:21:00 PM Study Type:Routine Echo Height: 64in Weight: 213lb BSA: 2.01 m2 Age: 9 1955,65Y Sex: FEMALE BP: 128/89 HR: 102 bpm Sonogrphr: SANKET [facility]. Stat.:Inpatient Room: [facility] Study Status:Final Echo Event ID:[id number] Order ID: [id number] Reason for Study:Atrial FibrillationHistory / Clinical:Hypertension Procedures: [...] PA systolic pressure.- MEASUREMENTS: ---- 2DParasternal Long Marion Ao An 2.2 cm LVPWd 1 cm [...] LVOT CI 3.1 l/m/m2 Signed 04/27/2020 06:20 [facility] Esophagram Double [id number] 18:07:12EXAMINATION: FL ESOPHAGRAM DOUBLE CONTRAST CLINICAL HISTORY: [...] Wo Contrast Abdomen Wo Contrast Pelvis Wo [id number] 15:23:55EXAMINATION: CT CHEST WO CONTRAST ABDOMEN WO [...] chronic and incidental findings as detailed above. [facility]-[id number] Dictated and approved by radiology resi dent/fellow: Jenna Valenzuela M.D. I, Medhat Flowers Jr., M.D., personally reviewed the images and resident's/fellow's findings and agree with the final report.[facility], Radiology Results Incoming - 04/21/2020 [...] aorta.4.Additional chronic and incidental findings as detailed above.[id number] and approved by radiology rn/fellow: Jenna Valenzuela M.D.I, Medhat Flowers Jr., M.D., personally reviewed the images and resident's/fellow's findings and agree with the final report. [facility], GC, TV,PCR, IN [id number] 15:38:00 Test Item Value Reference Range Interpretation Comments FT (test code = CHTR) Not detected (qualifier Not Detected N value) FT (test code = Not detected (qualifier Not Detected N NGONO) value) FT (test code = TRVG) Not detected (qualifier Not Detected N value) URINALYSIS WITH [id number] 10:57:00 Test Item Value Reference Range Interpretation Comments Color (test code = UCOLR) Dk. Yellow Clarity (test code = UCLAR) Hazy Glucose (test code = UGLUC) NEGATIVE NEGATIVE N Bilirubin (test code = UBILI) NEGATIVE NEGATIVE N Ketones (test code = UKET) NEGATIVE NEGATIVE N Specific Radom (test code = 1.025 1.005-1.030 A USPGR) [...]
--- NOTE | 2021-08-27 23:05 | ER ---
Nurse's Notes [facility] Name: Fawn Fleming Age: 66 yrs Sex: Female : 1955 Arrival Date: 08/27/2021 Time: 20:26 Bed 18 Private MD: Diagnosis: Anxiety disorder, unspecified Presentation: 08/27 21:19 Chief complaint: Patient states: "I am having some hallucinations. Last night I saw a ab2 blonde lesbian in my bed but when I asked my he said no one was there. I also thought I saw someone walk past me at home but there was no one actually there. I just want to be checked out so im not going crazy.". Coronavirus screen: Vaccine status: Patient reports receiving the 2nd dose of the covid vaccine. Client denies travel out of the [place] in the last 14 days. At this time, the client does not indicate any symptoms associated with coronavirus-19. Ebola Screen: Patient negative for fever greater than or equal to 101.5 degrees Fahrenheit, and additional compatible Ebola Virus Disease symptoms Patient denies exposure to infectious person. Patient denies travel to an Ebola-affected area in the 21 days before illness onset. No symptoms or risks identified at this time. Initial Sepsis Screen: Does the patient meet any 2 criteria? No. Patient's initial sepsis screen is negative. Does the patient have a suspected source of infection? No. Patient's initial sepsis screen is negative. Risk Assessment: Do you want to hurt yourself or someone else? Patient reports no desire to harm self or others. Onset of symptoms is unknown. 21:19 Method Of Arrival: Ambulatory ab2 21:19 Acuity: BLAYNE 3 ab2 Triage Assessment: 21:22 General: Appears in no apparent distress. comfortable, Behavior is calm, cooperative, ab2 appropriate for age. Pain: Denies pain. EENT: No deficits noted. Neuro: Level of Consciousness is awake, alert, obeys commands, Oriented to person, place, time, situation, Appropriate for age Arresting Gear Operator are equal bilaterally Moves all extremities. Speech is normal. Cardiovascular: No deficits noted. Patient's skin is warm and dry. Respiratory: Airway is patent Respiratory effort is even, unlabored, Respiratory pattern is regular, symmetrical. GI: No deficits noted. No signs and/or symptoms were reported involving the gastrointestinal system. : No deficits noted. No signs and/or symptoms were reported regarding the genitourinary system. Derm: Skin is fragile, is thin. Historical: - Allergies: 21:22 Bactrim DS; ab2 21:22 butorphanol tartrate; ab2 21:22 Fentanyl; ab2 21:22 Reglan; ab2 21:22 Stadol; ab2 21:22 sulfamethoxazole (bulk); ab2 21:22 TRIMETHOPRIM; ab2 - PMHx: 21:22 Anxiety; Atrial Fib; Bipolar disorder; Chronic pain; COPD; esophageal varices; ab2 Hepatitis; HIV; Hypertension; Migraines; Panic Attacks; - PSHx: 21:22 Appendectomy; Bilateral shoulder repair; hernia repair; R wrist SX; Cholecystectomy; ab2 - Immunization history:: Adult Immunizations up to date. - Social history:: Smoking status: Patient denies any tobacco usage or history of. Screenin:52 Abuse screen: Denies threats or abuse. Nutritional screening: No deficits noted. ke1 Tuberculosis screening: No symptoms or risk factors identified. Fall Risk None identified. Assessment: 22:30 General: Appears in no apparent distress. Behavior is appropriate for age. Neuro: Level ke1 of Consciousness is awake, alert, Oriented to person, place, time, situation. Psych: 21:23 [place] Suicide Severity Screening: In the past month, have you wished you were ab2 or wished you could go to sleep and not wake up? Patient responds "No." "In the past month, have you actually had any thoughts of killing yourself?" Patient responds "no." "In your lifetime, have you ever done anything, started to do anything, or prepared to do anything to end your life?" Patient responds "no.". Subjective: Hallucinations are visual. Objective: Patient is cooperative, Speech is normal, Affect is appropriate. Pt denies substance abuse. 22:53 Interventions: Patient reassessed during use of restraints. Patient is physically safe. ke1 22:53 Safety Checks: Door is open. ke1 Vital Signs: 21:19 BP 176 / 116; Pulse 66; Resp 19; Temp 98.1(TE); Pulse Ox 97% on R/A; Weight 95.25 kg; ab2 Height 5 ft. 4 in. (162.56 cm); Pain 0/10; 23:09 BP 152 / 98; Pulse 64; Resp 18; Pulse Ox 100% on R/A; ke1 21:19 Body Mass Index 36.05 (95.25 kg, 162.56 cm) ab2 ED Course: 20:26 Patient arrived in ED. ja2 20:34 Jose Shah DO is Attending Physician. ms3 21:22 Triage completed. ab2 21:23 Arm band placed on right wrist. ab2 22:23 Eli Bran, RN is Primary Nurse. ke1 22:53 No provider procedures requiring assistance completed. ke1 22:54 Bed in low position. ke1 23:05 Patient did not have IV access during this emergency room visit. ke1 Administered Medications: 22:32 Drug: Ativan (LORazepam) 1 mg Route: PO; ke1 23:05 Follow up: Response: Anxiety decreased ke1 Outcome: 23:04 Discharge ordered by . ms3 23:05 Discharged to home ambulatory. ke1 23:05 Condition: good 23:05 Discharge instructions given to patient. 23:09 Patient left the ED. ke1 Signatures: Jose Shah DO DO ms3 Sharee Darnell ja2 Wilbert Lowe ab2 Eli Bran, ASHLEY RN ke1
--- NOTE | 2021-08-27 23:05 | EDPHYS ---
Physician Documentation [facility] Name: Fawn Fleming Age: 66 yrs Sex: Female : 1955 Arrival Date: 08/27/2021 Time: 20:26 Bed 18 Private MD: ED Physician Jose Shah HPI: 08/27 22:09 This 66 yrs old Female presents to ER via Ambulatory with complaints of Psych Problem, ms3 Dizziness. 22:09 The patient presents to the emergency department with anxiety. Onset: The ms3 symptoms/episode began/occurred today. Associated signs and symptoms: The patient has no apparent associated signs or symptoms. Severity of symptoms: in the emergency department the symptoms have improved Pain is currently a 0 / 10. 66-year-old female with past medical history of anxiety, atrial fibrillation, bipolar, chronic pain, COPD, HIV presents for anxiety that began today. Patient states she is currently under stress trying to pay bills. Patient denies alleviating or inciting factors.. Historical: - Allergies: 21:22 Bactrim DS; ab2 21:22 butorphanol tartrate; ab2 21:22 Fentanyl; ab2 21:22 Reglan; ab2 21:22 Stadol; ab2 21:22 sulfamethoxazole (bulk); ab2 21:22 TRIMETHOPRIM; ab2 - PMHx: 21:22 Anxiety; Atrial Fib; Bipolar disorder; Chronic pain; COPD; esophageal varices; ab2 Hepatitis; HIV; Hypertension; Migraines; Panic Attacks; - PSHx: 21:22 Appendectomy; Bilateral shoulder repair; hernia repair; R wrist SX; Cholecystectomy; ab2 - Immunization history:: Adult Immunizations up to date. - Social history:: Smoking status: Patient denies any tobacco usage or history of. ROS: 22:09 Constitutional: Negative for fever, and chills. Neck: Negative for injury, pain, and ms3 swelling, Cardiovascular: Negative for chest pain, and palpitations. Respiratory: Negative for shortness of breath, cough, wheezing, and pleuritic chest pain, Abdomen/GI: Negative for abdominal pain, nausea, vomiting, diarrhea, and constipation, Back: Negative for injury and pain, MS/Extremity: Negative for injury and deformity, Skin: Negative for injury, rash, and discoloration, Neuro: Negative for headache, weakness, numbness, tingling. 22:09 Psych: Positive for anxiety. Exam: 22:09 Constitutional: This is a well developed, well nourished patient who is awake, alert, ms3 and in no acute distress. Head/Face: Normocephalic, atraumatic. ENT: Nares patent. No nasal discharge, no septal abnormalities noted. Tympanic membranes are normal and external auditory canals are clear. Oropharynx with no redness, swelling, or masses, exudates, or evidence of obstruction, uvula midline. Mucous membranes moist. Neck: Trachea midline, no cervical lymphadenopathy. Supple, full range of motion without nuchal rigidity, or vertebral point tenderness. No Meningismus. Chest/axilla: Normal chest wall appearance and motion. Nontender with no deformity. Cardiovascular: Regular rate and rhythm with a normal S1 and S2. No gallops, murmurs, or rubs. Normal PMI, no JVD. No pulse deficits. Respiratory: Lungs have equal breath sounds bilaterally, clear to auscultation and percussion. No rales, rhonchi or wheezes noted. No increased work of breathing, no retractions or nasal flaring. Abdomen/GI: Soft, non-tender, with normal bowel sounds. No distension or tympany. No guarding or rebound. No evidence of tenderness throughout. Skin: Warm, dry with normal turgor. Normal color with no rashes, no lesions, and no evidence of cellulitis. Neuro: Awake and alert, GCS 15, oriented to person, place, time, and situation. Cranial nerves II-XII grossly intact. Motor strength 5/5 in all extremities. Sensory grossly intact. Cerebellar exam normal. Normal gait. 22:09 Psych: Behavior/mood is pleasant, cooperative, anxious, Affect is calm, Delusions/hallucinations are not present. Vital Signs: 21:19 BP 176 / 116; Pulse 66; Resp 19; Temp 98.1(TE); Pulse Ox 97% on R/A; Weight 95.25 kg; ab2 Height 5 ft. 4 in. (162.56 cm); Pain 0/10; 23:09 BP 152 / 98; Pulse 64; Resp 18; Pulse Ox 100% on R/A; ke1 21:19 Body Mass Index 36.05 (95.25 kg, 162.56 cm) ab2 MDM: 22:09 Patient medically screened. ms3 23:04 Differential diagnosis: Anxiety vs Situational reaction. Data reviewed: vital signs, ms3 nurses notes. 23:04 Counseling: I had a detailed discussion with the patient and/or guardian regarding: the ms3 historical points, exam findings, and any diagnostic results supporting the discharge/admit diagnosis, the need for outpatient follow up, to return to the emergency department if symptoms worsen or persist or if there are any questions or concerns that arise at home. ED course: Patient requesting discharge. Patient to follow-up with her primary care physician as discussed. All questions were answered. Return precautions discussed include worsening symptoms, or any other concerns. On reevaluation patient is alert and oriented x4, no apparent distress, nontoxic, ambulatory in emergency department. Administered Medications: 22:32 Drug: Ativan (LORazepam) 1 mg Route: PO; ke1 23:05 Follow up: Response: Anxiety decreased ke1 Disposition Summary: 08/27/21 23:04 Discharge Ordered Location: Home ms3 Condition: Stable ms3 Diagnosis - Anxiety disorder, unspecified ms3 Followup: ms3 - With: Private Physician - When: 2 - 3 days - Reason: Re-evaluation by your physician Discharge Instructions: - Discharge Summary Sheet ms3 - Panic Attack ms3 - Managing Anxiety, Adult ms3 Forms: - Medication Reconciliation Form ms3 - Thank You Letter ms3 - Antibiotic Education ms3 - Prescription Opioid Use ms3 Signatures: Jose Shah, DO ms3 Wilbert Lowe Kouassi RN RN ke1 Corrections: (The following items were deleted from the chart) 08/28 02:58 08/27 22:09 Differential diagnosis: Anxiety vs Situational reaction ms3 ms3 08/28 02:58 04 22:09 Data reviewed: vital signs, nurses notes, ms3 ms3
[2021-08-28 04:26] VITALS: TEMP 98.1
[2021-08-28 04:27] VITALS: BP 152/98; O2SAT 100
== END 2021-08-27 23:09 | disposition home or self-care (01) ==
LOC: ER 20:22
DX: F41.9 Anxiety disorder, unspecified (principal); J44.9 Chronic obstructive pulmonary disease, unspecified; I48.91 Unspecified atrial fibrillation; Z21 Asymptomatic human immunodeficiency virus [HIV] infection status; Z88.1 Allergy status to other antibiotic agents; Z88.2 Allergy status to sulfonamides; Z88.5 Allergy status to narcotic agent; Z88.8 Allergy status to other drugs, medicaments and biological substances
CPT/HCPCS: 99284

== ENCOUNTER 2021-08-28 07:07 | Inpatient (IN) | payer OTHER ==
--- OUTSIDE RECORDS SUMMARY | 2021-08-28 07:18 | XMS REPORT | Continuity of Care Document ---
:1955 Author Organization [facility] t Address [address] [place] [address] Care Team Providers Name Role Phone Francisco Rahman Primary Care Physician Ashely Attending Clinician Unavailable PANKAJ Attending Clinician Unavailable RONALD Attending Clinician Unavailable [facility] Attending Clinician Unavailable Ronald DHILLON Attending Clinician Ap JENKINS Attending Clinician Doctor Unassigned, Name Attending Clinician Unavailable Prabhu SANCHEZ Attending Clinician Unavailable Luisana Maharaj NP Attending Clinician Yazmin JENKINS Attending Clinician Devin FLY FISHING GUIDE, R Attending Clinician Clark SANCHEZ Attending Clinician [...] Policy Number Effective Date Expiration Date S [facility] COMMUNITY PLAN [id number] 2012 STAR PLUS OON 00:00:00 [facility] DUAL [id number] 2020 COMP HMO D SNP 00:00:00 MEDICAID OF [place] [id number] 2020 00:00:00 Problems Condition Condition Condition Status Onset Resolution Last Treating Co mments Source Name Details Category Date Date Treatment Clinician Date Gastropare Gastropare Disease Active Overview : Methodi sis sis 4-[address] 00:00: [facility] note l might be different from the original. Added automatic ally from request for surgery [id number] Dysphagia Dysphagia Disease Active Overview: Methodi 4-[address] 00:00: [facility] 00 note l might be different from the original. Added automatic ally from request for surgery [id number] CCL / EPS Diagnosis Active 2020-10-15 Memoria PVI 3-30 17:07:00 l ABLATION CCL / 00:00: [place] W/ CARTO / EPS PVI 00 GA / T ABLATION W/ CARTO / GA / T Active 08/19/2020 [facility] Food Food Disease Active 2019-05 [...] 2-19 ity of 30-39.9) 30-39.9) 00:00: [place] [facility] Anemia Anemia Disease Active 2014-05 Univers 0-03 ity of 00:00: [place] [facility] Hypovolemi Hypovolemi Disease Active 2014-05 U nivers a due to a due to 0-02 ity of hemorrhage hemorrhage 00:[place] [facility] Chest pain Chest pain Disease Active 2014-05 U nivers 0-02 ity of 00:00: [place] [facility] 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:00: [place] shoulder shoulder 00 Medica l arthroplas arthroplas Br anch ty ty Posttrauma Posttrauma Disease Active U nivers tic stress tic stress 09-27 it y of disorder disorder 00:00: [place] [facility] 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 00:00: [place] virus virus 00 Medical (HIV) (HIV) Branch disease disease Bipolar 2 Bipolar 2 Disease Active Uni vers disorder disorder 11-18 ity of 00:00: [place] [facility] Chronic Chronic Disease Active Univers hepatitis hepatitis 11-18 ity of C C 00:00: [place] [facility] Hypertensi Hypertensi Disease Active U nivers on on 11-18 ity of 00:00: [place] [facility] Allergies, Adverse Reactions, Alerts Allergy Allergy Status Severity Reaction(s) Onset Inactive Treating Comm ents Source Name Type Date Date Clinician sulfamet DA Active [facility] N/V [facility] hoxazole 1-25 Clear 00:00: [address] trimetho DA Active [facility] prim 1-25 Clear 00:00: Garcia 00 [facility] codeine DA Active SV N/V [facility] 1-25 Clear 00:00: Garcia [facility] Metoclop Propensi Active [place] ramide ty to [...] Date Stop Date Source Natural father Diabetes [facility] Natural father Other - see comments [facility] Natural [facility] Natural father Hypertension [facility] Natural father Kidney disease [facility] Natural mother Cancer [facility] Social History Social Habit Start Date Stop Date Quantity Comments [facility] Alcohol Std Drinks History [facility] Health Alcohol Binge Exposure to Not sure University of SARS-CoV-2 (event) [place] [facility] [place] History of tobacco Smoker [facility] use Hospital Alcohol intake 2021-07-14 2021-07-14 Ex-drinker [facility] 00:00:00 00:00:00 (finding) Cigarettes smoked 2020-12-08 2020-12-[address] current (pack per 00:00:00 00:00:00 Hospita l day) - Reported Cigarette 2020-12-08 2020-12-08 [facility] pack-years 00:00:00 00:00:00 Hospital Tobacco use and 2020-10-31 2020-10-31 Smokeless tobacco [facility] exposure 00:00:00 00:00:00 non-user History SDOH 2020-10-31 2020-10-31 1 [facility] Alcohol Frequency 00:00:00 00:00:00 Tobacco Comment 2015-02-14 2015-02-14 Smokes approx 1-2 Un iversity of 00:00:00 00:00:00 cigarettes per [place] [facility] day when she Branch smokes Sex [birth year] [facility] 00:00:00 00:00:00 Smoking Status Start Date Stop Date Source Former smoker 2020-12-08 00:00:00 2020-12-08 00:00:00 [facility] Medications Ordered Filled Start Stop Current Ordering Indication Dosage Frequency Signature Comments Components Source Medication Medication Date Date Medication? Clinician (SIG) Name Name raltegravir Yes [id number] 400mg Take 1 Univers (ISENTRESS) 3-28 tablet by ity of 400 mg 00:00: mouth 2 [place] tablet 00 (two) Medical times Branch daily. raltegravir Yes [id number] 400mg Take 1 Univers (ISENTRESS) 3-28 tablet by ity of 400 mg 00:00: mouth 2 [place] tablet 00 (two) Medical times Branch daily. LORazepam 1 Yes [id number] 1mg Take 1 Univers mg tablet 3-21 tablet by ity o f 00:00: mouth 3 [place] 00 (three) Medical times Branch daily as needed (anxiety). LORazepam 1 Yes [id number] 1mg Take 1 Univers mg tablet 3-21 tablet by ity o f 00:00: mouth 3 [place] 00 (three) Medical times Branch daily as needed (anxiety). LORazepam 1 Yes [id number] 1mg Take 1 Univers mg tablet 3-21 tablet by ity o f 00:00: mouth 3 [place] 00 (three) Medical times Branch daily as needed (anxiety). LORazepam 1 0 Yes [id number] 1mg Take 1 Univers mg tablet 3-21 tablet by ity o f 00:00: mouth 3 [place] 00 (three) Medical times Branch daily as needed (anxiety). raltegravir Yes 400mg Q.5D Take 400 U T (Isentress) 2-22 mg by Health 400 MG 09:09: mouth 2 tablet 52 (two) times a day. LORazepam 1 2021- No [id number] 1mg Take 1 Univers mg tablet 2-21 [...] 00 times a tablet day. buPROPion Yes [id number] 150mg Take 1 U nivers XL 1-24 tablet by ity of (WELLBUTRIN 00:00: mouth [place] XL) 150 mg 00 daily. Medical 24 hr Branch tablet busPIRone 0 Yes [id number] 30mg Take 1 Un matt 30 mg 1-24 tablet by ity of tablet 00:00: mouth 2 [place] 00 (two) Medical times Branch daily. SERTraline 0 Yes [id number] 200mg Take 2 Univers 100 mg 1-24 tablets by ity of tablet 00:00: mouth [place] 00 daily. Medical Branch buPROPion 0 Yes [id number] 150mg Take 1 U nivers XL 1-24 tablet by ity of (WELLBUTRIN 00:00: mouth [place] XL) 150 mg 00 daily. Medical 24 hr Branch tablet busPIRone 0 Yes [id number] 30mg Take 1 Un matt 30 mg 1-24 tablet by ity of tablet 00:00: mouth 2 [place] 00 (two) Medical times Branch daily. SERTraline Yes [id number] 200mg Take 2 Univers 100 mg 1-24 tablets by ity of tablet 00:00: mouth [place] 00 daily. Medical Branch buPROPion 0 Yes [id number] 150mg Take 1 U nivers XL 1-24 tablet by ity of (WELLBUTRIN 00:00: mouth [place] XL) 150 mg 00 daily. Medical 24 hr Branch tablet busPIRone Yes [id number] 30mg Take 1 Un matt 30 mg 1-24 tablet by ity of tablet 00:00: mouth 2 [place] 00 (two) Medical times Branch daily. SERTraline Yes [id number] 200mg Take 2 Univers 100 mg 1-24 tablets by ity of tablet 00:00: mouth [place] 00 daily. Medical Branch buPROPion Yes [id number] 150mg Take 1 U nivers XL 1-24 tablet by ity of (WELLBUTRIN 00:00: mouth [place] XL) 150 mg 00 daily. Medical 24 hr Branch tablet busPIRone Yes [id number] 30mg Take 1 Un matt 30 mg 1-24 tablet by ity of tablet 00:00: mouth 2 [place] 00 (two) Medical times Branch daily. SERTraline Yes [id number] 200mg Take 2 Univers 100 mg 1-24 tablets by ity of tablet 00:00: mouth [place] 00 daily. Medical Branch LORazepam 1 2021- No [id number] 1mg Take 1 Univers mg tablet 1-24 02-21 tablet by ity of 00:00: 00:00 mouth 3 [place] 00 :00 (three) Medical times Branch daily as needed (anxiety). emtricitabi Yes [id number] Take one Univers ne-tenofovi 1-20 po daily ity of r alafen 00:00: [place] (DESCOVY) 00 Medical tablet Branch emtricitabi 0 Yes [id number] Take one Univers ne-tenofovi 1-20 po daily ity of r alafen 00:00: [place] (DESCOVY) 00 Medical tablet Branch emtricitabi Yes [id number] Take one Univers ne-tenofovi 1-20 po daily ity of r alafen 00:00: [place] (DESCOVY) 00 Medical tablet Branch emtricitabi 2021-0 Yes [id number] Take one Univers ne-tenofovi 1-20 po daily ity of r alafen 00:00: [place] (DESCOVY) 00 Medical tablet Branch raltegravir 0 Yes [id number] 400mg Take 1 Univers (ISENTRESS) 1-12 tablet by ity of 400 mg 00:00: mouth 2 [place] tablet 00 (two) Medical times Branch daily. raltegravir 2021- No [id number] 400mg Take 1 Univers (ISENTRESS) 1-12 03-28 tablet by it y of 400 mg 00:00: 00:00 mouth 2 [place] tablet 00 :00 (two) Medical times Branch daily. raltegravir 2021- No [id number] 400mg Take 1 Univers (ISENTRESS) 1-12 -28 tablet by it y of 400 mg 00:00: 00:00 mouth 2 [place] tablet 00 :00 (two) Medical times Branch daily. metoprolol 0 Yes [id number] Take 1 [place] tartrate 7-26 tablet Health (Lopressor) 00:00: (100 mg 100 MG 00 total) by tablet mouth 2 (two) times a day AND 0.5 tablets (50 mg total) every night. metoprolol 0 Yes [id number] Take 1 [place] tartrate 7-26 tablet Health [...] (affected area in groin) hydrALAZINE Yes 50mg Q.[id number] Take 50 mg Methodi (APRESOLINE 7-[id number] mouth [address] ) 50 MG [...] tablet 25 daily. l nystatin-tr 2020-0 Yes [id number] Apply to [facility] iainolone 7-06 area(s) 3 ity of cream 00:00: (three) [place] 00 times Medical daily. Branch nystatin-tr 2020-0 Yes [id number] Apply to [facility] iainolone 7-06 area(s) 3 ity of cream 00:00: (three) [place] 00 times Medical daily. Branch nystatin-tr 2020-0 Yes [id number] [facility] area[facility] 3 ity of cream 00:00: (three) [place] 00 times Medical daily. Branch nystatin-tr 2020-0 Yes [id number] [facility] [place] [facility] area(s) 3 ity of cream 00:00: (three) [place] 00 times Medical daily. Branch budesonide- 2020-0 2020- No 1{puff} QD Inhale 1 Methodi formoteroL 6-25 06-[address] (SYMBICORT) 19:37: 00:00 morning. H ospita 160-4.5 02 :00 l mcg/actuati on inhaler hydrALAZINE Yes [id number] 50mg Q.[id number] Take 1 [facility] (Apresoline 6-11 [id number] tablet (50 Health ) 50 MG 00:00: 3D mg total) tablet 00 by mouth 3 (three) times a day. hydrALAZINE Yes [id number] 50mg Q.[id number] Take 1 [facility] (Apresoline 6-11 [id number] tablet (50 Health ) 50 MG 00:00: [...] % 00:00: ointment 00 nystatin 2020- No [id number] Q.25D Take 5 mL Methodi (MYCOSTATIN 10-06 [...] ia 4-10 (Same as: l 14:00: Norvasc) [place] emtricitabi No Notes: Caesar lisa ne 200 MG / 4-10 (Same as: l tenofovir 14:00: Descovy) Herm ariel alafenamide 00 Non-formul 25 MG Oral nancy Tablet [Descovy] pantoprazol No Notes: [place] lisa e 4-10 Tablet l 14:00: should not [place] 00 be chewed or crushed. (Same as: Protonix) Amiodarone No Notes: Memor ia 4-10 (Same as: l 14:00: Cordarone) [place] Amlodipine No Notes: Memor ia 4-10 (Same as: l 14:00: Norvasc) [place] emtricitabi No Notes: Caesar lisa ne 200 MG / 4-10 (Same as: l tenofovir 14:00: Descovy) Herm ariel alafenamide 00 Non-formul 25 MG Oral nancy Tablet [Descovy] Sertraline No Notes: Memor ia 4-10 (Same as: l 14:00: Zoloft) [place] Sertraline No Notes: Memor ia 4-10 (Same as: l 14:00: Zoloft) [place] 00 pantoprazol No Notes: Caesar lisa e 4-10 Tablet l 14:00: should not [place] 00 be chewed or crushed. (Same as: Protonix) Amiodarone No Notes: Memor ia 4-10 (Same as: l 14:00: Cordarone) [place] Amlodipine No Notes: Memor ia 4-10 (Same [...] ia 4-10 (Same as: l 14:00: Norvasc) [place] 00 emtricitabi No Notes: Caesar lisa ne 200 MG / 4-10 (Same as: l tenofovir 14:00: Descovy) Herm ariel alafenamide 00 Non-formul 25 MG Oral nancy Tablet [Descovy] Sertraline No Notes: Memor ia 4-10 (Same as: l 14:00: Zoloft) [place] 00 pantoprazol No Notes: Caesar lisa e 4-10 Tablet l 14:00: should not [place] 00 be chewed or crushed. (Same as: Protonix) Amiodarone No Notes: Memor ia 4-10 (Same as: l 14:00: Cordarone) [place] 00 Amlodipine No Notes: Memor ia 4-10 (Same as: l 14:00: Norvasc) [place] 00 emtricitabi No Notes: Caesar lisa ne 200 MG / 4-10 (Same as: l tenofovir 14:00: Descovy) Herm ariel alafenamide 00 Non-formul 25 MG Oral nancy Tablet [Descovy] Sertraline No Notes: Memor ia 4-10 (Same as: l 14:00: Zoloft) [place] 00 pantoprazol No Notes: [place] lisa e 4-10 Tablet l 14:00: should not [place] 00 be chewed or crushed. (Same as: Protonix) Amiodarone No Notes: Memor ia 4-10 (Same as: l 14:00: Cordarone) [place] 00 Amlodipine No Notes: Memor ia 4-10 (Same as: l 14:00: Norvasc) [place] 00 emtricitabi No Notes: Caesar lisa ne 200 MG / 4-10 (Same as: l tenofovir 14:00: Descovy) Herm ariel alafenamide 00 Non-formul 25 MG Oral nancy Tablet [Descovy] Sertraline No Notes: Memor ia 4-10 (Same as: l 14:00: Zoloft) [place] pantoprazol No Notes: [place] lisa e 4-10 Tablet l 14:00: should not [place] 00 be chewed or crushed. (Same as: Protonix) Amiodarone No Notes: Memor ia 4-10 (Same as: l 14:00: Cordarone) [place] Amlodipine No Notes: Memor ia 4-10 (Same as: l 14:00: Norvasc) [place] 00 emtricitabi No Notes: Caesar lisa ne [...] ia 4-10 (Same as: l 14:00: Cordarone) [place] 00 Eliquis No Notes: Memoria 4-10 Same as: [...] 0.9% 4-10 (Same as: l 02:00: BD [place] 00 Posiflush) Eliquis No Notes: Memoria 4-10 [...] 0.9% 4-10 (Same as: l 02:00: BD [place] 00 Posiflush) Eliquis No Notes: Memoria 4-10 Same as: l 02:00: Eliquis [place] Hydralazine No Notes: Caesar lisa Hydrochlori 4-10 (Same as: l de 50 MG 02:00: Apresoline Her mitchell Oral Tablet 00 ) May interfere w/enteral feedings Take With Food Sucralfate No Notes: May M emoria 4-10 interfere l 02:00: w/enteral [place] 00 feeds - Take 1 hr before [...] Memoria 4-10 Same as: l 02:00: Eliquis [place] Hydralazine No Notes: Caesar lisa Hydrochlori 4-10 [...] 0.9% 4-10 (Same as: l 02:00: BD [place] 00 Posiflush) Eliquis No Notes: Memoria 4-10 Same as: l 02:00: Eliquis [place] 00 Hydralazine No Notes: Caesar lisa Hydrochlori 4-10 (Same as: l de 50 MG 02:00: Apresoline Her mitchell Oral Tablet 00 ) May interfere w/enteral feedings Take With Food Sucralfate No Notes: May M emoria 4-10 interfere l 02:00: w/enteral [place] 00 feeds - Take 1 hr before [...] Memoria 4-10 Same as: l 02:00: Eliquis [place] Hydralazine No Notes: Caesar lisa Hydrochlori 4-10 [...] 0.9% 4-10 (Same as: l 02:00: BD [place] Posiflush) acetaminoph No Notes: Do M emoria en-codeine 4-10 not exceed l #3 00:12: 4gm/day of [place] acetaminop hen. (Same as: Tylenol with Codeine # 3) acetaminoph No Notes: Do M emoria en-codeine 4-10 not exceed l #3 00:12: 4gm/day of [place] acetaminop hen. (Same as: Tylenol with Codeine # 3) acetaminoph No Notes: Do M emoria en-codeine 4-10 not exceed l #3 00:12: 4gm/day of [place] acetaminop hen. (Same as: Tylenol with Codeine # 3) acetaminoph No Notes: Do M emoria en-codeine 4-10 not exceed l #3 00:12: 4gm/day of [place] acetaminop hen. (Same as: Tylenol with Codeine # 3) acetaminoph No Notes: Do M emoria en-codeine 4-10 not exceed l #3 00:12: 4gm/day of [place] acetaminop hen. (Same as: Tylenol with Codeine # 3) acetaminoph No Notes: Do M emoria en-codeine 4-10 not exceed l #3 00:12: 4gm/day of [place] 00 acetaminop hen. (Same as: Tylenol with Codeine # 3) acetaminoph No Notes: Do M emoria en-codeine 4-10 not exceed l #3 00:12: 4gm/day of [place] acetaminop hen. (Same as: Tylenol with Codeine # 3) Buspirone No Notes: Memori a 08-29 (Same As: l 22:00: BuSpar) Lisinopril No 40 mg, 1 Mem oria 4- tab, l 22:00: Route: PO, [place] Drug form: TAB, BID, Dosing Weight 97.273, [...] tab, l Tablet 22:00: Route: PO, Skylar [[facility]] Drug form: TAB, BID, Dosing Weight 97.273, [...] tartrate 4-09 tab, l 22:00: Route: PO, [place] 00 Drug form: TAB, BID, Dosing Weight [...] tartrate 4-09 tab, l 22:00: Route: PO, [place] 00 Drug form: TAB, BID, Dosing Weight [...] oria 4-09 tab, l 22:00: Route: PO, [place] 00 Drug form: TAB, BID, Dosing Weight 97.273, kg, Start date: 08/29/20 17:00:00 CDT, Duration: 30 day, Stop date: 09/28/20 9:00:00 CDT metoprolol 2021-0 No 100 mg, 1 Me moria tartrate 4-09 tab, l 22:00: Route: PO, [place] Drug form: TAB, BID, Dosing Weight 97.273, [...] oria 4-09 tab, l 22:00: Route: PO, [place] 00 Drug form: TAB, BID, Dosing Weight 97.273, kg, Start date: 08/29/20 17:00:00 CDT, Duration: 30 day, Stop date: 09/28/20 9:00:00 CDT metoprolol No 100 mg, 1 Me moria tartrate 4-09 tab, l 22:00: Route: PO, [place] 00 Drug form: TAB, BID, Dosing Weight [...] Notes: Memoria 4-09 (Same l 17:07: as:MORPhin [place] 00 e Sulfate) Morphine No Notes: Memoria 4-09 (Same l 17:07: as:MORPhin [place] 00 e Sulfate) Morphine No Notes: Memoria 4-09 (Same l 17:07: as:MORPhin [place] 00 e Sulfate) Morphine No Notes: Memoria 4-09 (Same l 17:07: as:MORPhin [place] 00 e Sulfate) Morphine No Notes: Memoria 4-09 (Same l 17:07: as:MORPhin [place] 00 e Sulfate) Morphine No Notes: Memoria 4-09 (Same l 17:07: as:MORPhin [place] 00 e Sulfate) Morphine No Notes: Memoria [...] tab, PO, l oral 15:27: Daily, # [place] enteric 00 30 tab, 0 coated Refill(s), tablet Pharmacy: [facility] 149, 162.56, cm, 08/29/20 5:30:00 CDT, Height, 97.273, kg, 08/29/20 5:30:00 CDT, Weight pantoprazol 1-0 Yes 40 mg = 1 M emoria e 40 mg 4-09 tab, PO, l oral 15:27: Daily, # [place] enteric 00 30 tab, 0 coated Refill(s), tablet Pharmacy: [facility] 149, 162.56, cm, 08/29/20 5:30:00 CDT, Height, 97.273, kg, 08/29/20 5:30:00 CDT, Weight pantoprazol 1-0 Yes 40 mg = 1 M emoria e 40 mg 4-09 tab, PO, l oral 15:27: Daily, # [place] enteric 00 30 tab, 0 coated Refill(s), tablet Pharmacy: [facility] 149, 162.56, cm, 08/29/20 5:30:00 CDT, Height, 97.273, kg, 08/29/20 5:30:00 CDT, Weight pantoprazol 1-0 Yes 40 mg = 1 M emoria e 40 mg 4-09 tab, PO, l oral 15:27: Daily, # [place] enteric 00 30 tab, 0 coated Refill(s), tablet Pharmacy: [facility] 149, 162.56, cm, 08/29/20 5:30:00 CDT, Height, 97.273, kg, 08/29/20 5:30:00 CDT, Weight pantoprazol 2021-0 Yes 40 mg = 1 M emoria e 40 mg 4-09 tab, PO, l oral 15:27: Daily, # [place] enteric 00 30 tab, 0 coated Refill(s), tablet [facility]: [facility] 149, 162.56, cm, 08/29/20 5:30:00 CDT, Height, 97.273, kg, 08/29/20 5:30:00 CDT, Weight pantoprazol 2020-0 Yes 40 mg = 1 M emoria e 40 mg 4-09 tab, PO, l oral 15:27: Daily, # [place] enteric 00 30 tab, 0 coated Refill(s), tablet [facility], 162.56, cm, 08/29/20 5:30:00 CDT, Height, 97.273, kg, 08/29/20 5:30:00 CDT, Weight pantoprazol 2020-0 Yes 40 mg = 1 M emoria e 40 mg 4-09 tab, PO, l oral 15:27: Daily, # [place] enteric 00 30 tab, 0 coated Refill(s), tablet [facility]: [facility], 162.56, cm, 08/29/20 5:30:00 CDT, Height, 97.273, kg, 08/29/20 5:30:00 CDT, Weight pantoprazol 2020-0 No 40 mg = 1 M emoria e 40 mg 4-09 tab, PO, l oral 15:26: Daily, # [place] enteric 00 30 tab, 0 coated Refill(s) tablet sucralfate 2020-0 Yes 1 gm = 1 Mem oria 1 g oral 4-09 tab, PO, l tablet 15:26: Q12H, # 28 Skyl[place] nn 00 tab, 0 Refill(s), Pharmacy: [facility] 149, 162.56, cm, 08/29/20 5:30:00 CDT, Height, 97.273, kg, 08/29/20 5:30:00 CDT, Weight pantoprazol 1-0 No 40 mg = 1 M emoria e 40 mg 4-09 tab, PO, l oral 15:26: Daily, # [place] enteric 00 30 tab, 0 coated Refill(s) tablet sucralfate 1-0 Yes 1 gm = 1 Mem oria 1 g oral 4-09 tab, PO, l tablet 15:26: Q12H, # 28 [place]yl[place] nn 00 tab, 0 Refill(s), Pharmacy: [facility] 149, 162.56, cm, 08/29/20 5:30:00 [...] Skyl[place] nn 00 tab, 0 Refill(s), Pharmacy: [facility] 149, 162.56, cm, 08/29/20 5:30:00 [...] [place]yl[place] nn 00 tab, 0 Refill(s), Pharmacy: [facility] 149, 162.56, cm, 08/29/20 5:30:00 [...] [place]yl[place] nn 00 tab, 0 Refill(s), Pharmacy: [facility] 149, 162.56, cm, 08/29/20 5:30:00 [...] Skylar nn 00 tab, 0 Refill(s), Pharmacy: [facility] 149, 162.56, cm, 08/29/20 5:30:00 CDT, Height, 97.273, kg, 08/29/20 5:30:00 CDT, Weight pantoprazol No 40 mg = 1 M emoria e 40 mg 4-09 tab, PO, l oral 15:26: Daily, # [place] enteric 00 30 tab, 0 coated Refill(s) tablet sucralfate Yes 1 gm = 1 Mem oria 1 g oral 4-09 tab, PO, l tablet 15:26: Q12H, # 28 Skylar nn 00 tab, 0 Refill(s), Pharmacy: [facility] 149, 162.56, cm, 08/29/20 5:30:00 CDT, Height, 97.273, kg, 08/29/20 5:30:00 CDT, Weight Saline No Notes: Memoria Flush 0.9% 4-09 (Same as: l 15:25: BD [place] 00 Posiflush) Lorazepam No Notes: Memori a 4-09 (Same as: l 15:25: Ativan) [place] 00 Saline No Notes: Memoria Flush 0.9% 4-09 (Same as: l 15:25: BD [place] 00 Posiflush) Lorazepam No Notes: Memori a [...] 0.9% 4-09 (Same as: l 15:25: BD [place] 00 Posiflush) Lorazepam No Notes: Memori a 4-09 (Same as: l 15:25: Ativan) Saline No Notes: Memoria Flush 0.9% 4-09 (Same as: l 15:25: BD [place] 00 Posiflush) Lorazepam No Notes: Memori a 4-09 (Same as: l 15:25: Ativan) Saline No Notes: Memoria Flush 0.9% 4-09 (Same as: l 15:25: BD [place] Posiflush) Lorazepam No Notes: Memori a 4-09 (Same as: l 15:25: Ativan) Isuprel HCl No Route: IV, Memoria (ANES) 0.2 08-29 Drug form: l mg + 15:00: INJ, [place] 00 Dosing Weight 97.3, kg, Start date: 08/29/20 10:00:00 CDT, Stop date: 08/29/20 11:00:00 CDT Isuprel HCl No Route: IV, Memoria (ANES) 0.2 08-29 Drug form: l mg + 15:00: INJ, [place] Dosing Weight 97.3, kg, Start date: 08/29/20 10:00:00 CDT, Stop date: 08/29/20 11:00:00 CDT Isuprel HCl No Route: IV, Memoria (ANES) 0.2 08-29 Drug form: l mg + 15:00: INJ, [place] 00 Dosing Weight 97.3, kg, Start date: 08/29/20 10:00:00 CDT, Stop date: 08/29/20 11:00:00 CDT Isuprel HCl 2020-0 No Route: IV, Memoria (ANES) 0.2 08-29 Drug form: l mg + 15:00: INJ, [place] 00 Dosing Weight 97.3, kg, Start date: 08/29/20 10:00:00 CDT, Stop date: 08/29/20 11:00:00 CDT Isuprel HCl 2020-0 No Route: IV, Memoria (ANES) 0.2 08-29 Drug form: l mg + 15:00: INJ, [place] 00 Dosing Weight 97.3, kg, Start date: 08/29/20 10:00:00 CDT, Stop date: 08/29/20 11:00:00 CDT Isuprel HCl 2020-0 No Route: IV, Memoria (ANES) 0.2 08-29 Drug form: l mg + 15:00: INJ, [place] 00 Dosing Weight 97.3, kg, Start date: [...] 08-29 Route: PO, l 14:01: Drug form: [place] 00 TAB, ONCE, Dosing Weight 97.273, kg, [...] lisa 08-29 Route: l 14:01: IVP, PRN, [place] 00 Dosing Weight 97.273, kg, PRN Benzodiaze [...] ia 08-29 Route: l 14:01: IVP, ONCE, [place] 00 Dosing Weight 97.273, kg, PRN Nausea & Vomiting, Start date: 08/29/20 9:01:00 CDT Labetalol 2021-0 No 10 mg, Memori a 08-29 Route: l 14:01: IVP, [place] 00 Q5Min, Dosing Weight 97.273, kg, PRN [...] oria ne 08-29 Route: l 14:01: IVP, [place] 00 Q5Min, Dosing Weight 97.273, kg, PRN Pain Score 7-10, Start date: 08/29/20 9:01:00 CDT, Duration: 4 doses or times, Stop date: Limited # of times Flumazenil 2020-0 No 0.2 mg, Caesar lisa 08-29 Route: l 14:01: IVP, PRN, [place] 00 Dosing Weight 97.273, kg, PRN Benzodiaze [...] lisa 08-29 Route: l 14:01: IVP, PRN, [place] 00 Dosing Weight 97.273, kg, PRN Benzodiaze pine Reversal, Initial dose, Start date: 08/29/20 9:01:00 CDT, Duration: 30 day, Stop date: 09/28/20 9:00:00 CDT Naloxone 1-0 No 0.4 mg, Memori a 08-29 Route: l 14:01: IVP, [place] 00 Q2MIN, Dosing Weight 97.273, kg, PRN Narcotic Reversal, Start date: 08/29/20 9:01:00 CDT, Duration: 8 doses or times, Stop date: Limited # of times Ondansetron 1-0 No 4 mg, Memor ia 08-29 Route: l 14:01: IVP, ONCE, [place] 00 Dosing Weight 97.273, kg, PRN Nausea & Vomiting, Start date: 08/29/20 9:01:00 CDT Labetalol 2021-0 No 10 mg, Memori a 08-29 Route: l 14:01: IVP, [place] 00 Q5Min, Dosing Weight 97.273, kg, PRN [...] oria ne 08-29 Route: l 14:01: IVP, [place] 00 Q5Min, Dosing Weight 97.273, kg, PRN Pain Score 7-10, Start date: 08/29/20 9:01:00 CDT, Duration: 4 doses or times, Stop date: Limited # of times Labetalol 2021-0 No 10 mg, Memori a 08-29 Route: l 14:01: IVP, [place] 00 Q5Min, Dosing Weight 97.273, kg, PRN Elevated BP, Start date: 08/29/20 9:01:00 CDT, Duration: 5 doses or times, Stop date: Limited # of times Acetaminoph 2021-0 No 1,000 mg, M emoria en 08-29 Route: PO, l 14:01: Drug form: [place] 00 TAB, ONCE, Dosing Weight 97.273, kg, [...] lisa 08-29 Route: l 14:01: IVP, PRN, [place] 00 Dosing Weight 97.273, kg, PRN Benzodiaze [...] lisa 08-29 Route: l 14:01: IVP, PRN, [place] 00 Dosing Weight 97.273, kg, PRN Benzodiaze pine Reversal, Initial dose, Start date: 08/29/20 9:01:00 CDT, Duration: 30 day, Stop date: 09/28/20 9:00:00 CDT Ondansetron 1-0 No 4 mg, Memor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 [id number] 089 2020-11-25 2020-11-25 Telephone [facility] 1.2.308.386 9712 0821 00:00:00 00:00:00 Rosnda R [facility] 350.1.13.10 REGIONAL 4.2.7.2.686 MATERNAL [id number] & CHILD 107 [facility] 2020-11-14 2020-11-14 Abstract Clark, 1.2.840.1 [id number] 63105 64029 Methodi 00:00:00 00:00:[address] 3.430.2.7 Hospit a .3.654653 l .8 2020-11-14 2020-11-14 Telephone Rodas, 1.2.840.1 [id number] 2099 [id number] Methodi 00:00:00 00:00:[address] 3.430.2.7 Hospit a .3.197976 l .8 2020-11-07 2020-11-07 Telephone Diana, [facility] 6400 1.2.840.114 124 [id number] 00:00:00 00:00:[address] 350.1.13.58 9.2.7.2.686 400.3140602 1 2020-10-27 2020-10-27 Telephone Jeredimasa, 1.2.840.2 [id number] Methodi 00:00:00 00:00:[address] 3.430.2.7 Hospit a .3.806266 l .8 2020-10-24 2020-10-24 Telephone Rodas, 1.2.840.1 [id number] 2099 337402 Methodi 00:00:00 00:00:[address] 3.430.2.7 Hospit a .3.047146 l .8 2020-10-06 2020-10-12 Telemedici Yazmin, 1.2.840.1 [id number] Methodi 15:26:54 00:08:46 ne Ray [address]9415.1.[address] 3.430.2.7 Hospit a .3.228732 l .8 2020-09-30 2020-09-30 Telephone Yazmin, 1.2.840.3 [id number] 21 [id number] Methodi 00:00:00 00:00:[address] 3.430.2.7 Hospit a .3.217255 l .8 2020-09-21 2020-09-21 Travel 1.2.840.1 1.2.943.559 4878 498629 Methodi 00:00:00 00:00:[address] 3.430.2.7 0.2.7.3.698 Ho spita .3.487433 084.8 l .8 2020-09-01 2020-09-09 Lab Ramiro Mitchell 1.2.840.1 [id number] 59619 38243 Methodi 10:13:59 01:05:[address] 3.430.2.7 Hospit a .3.119493 l .8 2020-09-06 2020-09-06 [facility] 1.2.840.1 [id number] 30546 00573 Methodi 17:42:30 23:59:[address] 3.430.2.7 Hospit a .3.879718 l .8 2020-09-06 2020-09-06 [facility], 1.2.840.1 [id number] 2099 891113 Methodi 16:50:00 17:41:00 Encounter Ray [address]160.1.[address] 3.430.2.7 Hospit a .3.219098 l .8 2020-09-05 2020-09-05 [facility], 1.2.840.1 [id number] 2099 532007 Methodi 09:17:00 19:45:00 Encounter Ray [address]57.1.[address] 3.430.2.7 Hospit a .3.894588 l .8 2020-09-05 2020-09-05 [facility] 1.2.840.1 [id number] 20047 92152 Methodi 11:30:00 13:15:[address] 3.430.2.7 Hospit a .3.790385 l .8 2020-09-05 2020-09-05 Anesthesia [facility], 1.2.840.1 [id number] 379 4090398 Methodi 11:27:00 12:20:00 Event Lynnettevalentinadarrellthi 48346.1.1 243 s t V. 3.430.2.7 Hospit a .3.588263 l .8 2020-09-05 2020-09-05 Travel 1.2.840.1 1.2.285.593 3206 514143 Methodi 00:00:00 00:00:[address] 3.430.2.7 0.2.7.3.698 Ho spita .3.524223 084.8 l .8 2020-09-04 2020-09-04 Telephone [facility], 1.2.840.1 [id number] Methodi 00:00:00 00:00:00 Sarai Corbin. 12079.1.1 762 s t 3.430.2.7 Hospit a .3.296762 l .8 2020-09-02 2020-09-02 [facility], 1.2.840.1 [id number] Methodi 00:00:00 00:00:00 Sarai Corbin. 07065.1.1 344 s t 3.430.2.7 Hospit a .3.582239 l .8 2020-09-01 2020-09-01 Office [facility], 1.2.840.1 [id number] 85202 48676 Methodi 08:42:53 09:50:51 Visit Ray 23324.1.[address] 3.430.2.7 Hospit a .3.083691 l .8 2020-09-01 2020-09-01 Telephone [facility], 1.2.840.2 [id number] 21 [id number] Methodi 00:00:00 00:00:[address] 3.430.2.7 Hospit a .3.933255 l .8 2020-09-01 2020-09-01 Travel 1.2.840.1 1.2.907.788 8792 163178 Methodi 00:00:00 00:00:[address] 3.430.2.7 0.2.7.3.698 Ho spita .3.596766 084.8 l .8 2020-08-29 2020-08-30 Bedded [facility] [id number] [facility] 10:20:00 14:10:00 Outpatient r [place] 00 l [facility] 2020-08-29 2020-08-30 Outpatient [facility], [facility] CAR 7500 [facility] 05:20:00 09:10:00 BEVERLY 2020-08-27 2020-08-27 [facility], 1.2.840.1 [id number] 2100 [id number] Methodi 09:55:15 23:59:00 Encounter Ray 56020.1.[address] 3.430.2.7 Hospit a .3.027054 l .8 2020-08-27 2020-08-27 Travel 1.2.840.1 1.2.323.003 7638 124360 Methodi 00:00:00 00:00:[address] 3.430.2.7 0.2.7.3.698 Ho spita .3.455584 084.8 l .8 2020-08-21 2020-08-21 Travel 1.2.840.1 1.2.275.147 0126 634598 Methodi 00:00:00 00:00:[address] 3.430.2.7 0.2.7.3.698 Ho spita .3.501763 084.8 l .8 2020-08-19 2020-08-19 Telephone Meli, 1.2.840.1 [id number] 782 9039351 Methodi 00:00:00 00:00:[address] 3.430.2.7 Hospit a .3.441305 l .8 2020-08-19 2020-08-19 Travel 1.2.840.1 1.2.219.905 8040 817064 Methodi 00:00:00 00:00:[address] 3.430.2.7 0.2.7.3.698 Ho spita .3.185002 084.8 l .8 2020-08-18 2020-08-18 Orders Carol Ann, 1.2.840.0 [id number] 2 [id number] Methodi 00:00:00 00:00:00 Only Sarai Lieberman 24844.1.1 410 s t 3.430.2.7 Hospit a .3.535541 l .8 2020-08-18 2020-08-18 Travel 1.2.840.1 1.2.823.759 3667 831284 Methodi 00:00:00 00:00:[address] 3.430.2.7 0.2.7.3.698 Ho spita .3.136748 084.8 l .8 2020-08-15 2020-08-15 Abstract Clark 1.2.840.1 [id number] 11851 57474 Methodi 00:00:00 00:00:[address] 3.430.2.7 Hospit a .3.859585 l .8 2020-07-02 2020-08-06 Clinical 1.2.840.1 [id number] 78260 Methodi 10:40:46 01:45:[address] 3.430.2.7 Hospit a .3.194814 l .8 2020-07-30 2020-07-30 Travel 1.2.840.1 1.2.503.730 7353 573513 Methodi 00:00:00 00:00:[address] 3.430.2.7 0.2.7.3.698 Ho spita .3.388040 084.8 l .8 2020-07-28 2020-07-28 Office Yazmin, 1.2.840.1 [id number] 70341 Methodi 08:35:45 10:11:52 Visit Ray 44683.1.[address] 3.430.2.7 Hospit a .3.544132 l .8 2020-07-28 2020-07-28 Telephone Rodas, 1.2.840.1 [id number] 2100 838495 Methodi 00:00:00 00:00:[address] 3.430.2.7 Hospit a .3.755536 l .8 2020-07-28 2020-07-28 Travel 1.2.840.1 1.2.543.390 6517 459698 Methodi 00:00:00 00:00:[address] 3.430.2.7 0.2.7.3.698 Ho spita .3.353197 084.8 l .8 2020-07-25 2020-07-25 Telephone Carol Ann, 1.2.840.2 [id number] Methodi 00:00:00 00:00:00 Sarai Lieberman 13042.1.1 314 s t 3.430.2.7 Hospit a .3.508564 l .8 2020-07-25 2020-07-25 Travel 1.2.840.1 1.2.803.671 6822 164575 Methodi 00:00:00 00:00:[address] 3.430.2.7 0.2.7.3.698 Ho spita .3.920370 084.8 l .8 2020-07-23 2020-07-23 Clinical Tori, 1.2.840.1 210449504 75819 46802 Methodi 08:39:40 08:44:40 Support Hoang 14561.1.[address] P. 3.430.2.7 Hospit a .3.836609 l .8 2020-07-23 2020-07-23 Travel 1.2.840.1 1.2.019.963 9427 083232 Methodi 00:00:00 00:00:[address] 3.430.2.7 0.2.7.3.698 Ho spita .3.767626 084.8 l .8 2020-07-11 2020-07-11 Travel 1.2.840.1 1.2.357.597 1003 980667 Methodi 00:00:00 00:00:[address] 3.430.2.7 0.2.7.3.698 Ho spita .3.276215 084.8 l .8 2020-07-02 2020-07-[address] [facility], 1.2.840.5 [id number] Methodi 00:00:00 00:00:[address] 3.430.2.7 Hospit a .3.046125 l .8 2020-07-02 2020-07-02 Travel 1.2.840.1 1.2.162.123 1307 095776 Methodi 00:00:00 00:00:[address] 3.430.2.7 0.2.7.3.698 Ho spita .3.824180 084.8 l .8 2020-06-23 2020-06-23 Office [facility], 1.2.840.1 [id number] 04154 12571 Methodi 09:36:17 11:00:44 Visit Ray 99258.1.[address] 3.430.2.7 Hospit a .3.693432 l .8 2020-06-23 2020-06-23 Telephone Rodas, 1.2.840.1 [id number] 2100 013269 Methodi 00:00:00 00:00:[address] 3.430.2.7 Hospit a .3.757608 l .8 2020-06-23 2020-06-23 Travel 1.2.840.1 1.2.965.358 7040 696292 Methodi 00:00:00 00:00:[address] 3.430.2.7 0.2.7.3.698 Ho spita .3.150944 084.8 l .8 2020-06-09 2020-06-09 [address] [facility], 1.2.840.5 [id number] Methodi 00:00:00 00:00:[address] 3.430.2.7 Hospit a .3.651980 l .8 2020-06-06 2020-06-06 Refill Quinn, 1.2.840.1 [id number] 440423 5570 Methodi 00:00:00 00:00:00 Gabinocoral RodriguezChelsieKristenChelsie 35543.1.[address] 3.430.2.7 Hospit a .3.482216 l .8 2020-06-03 2020-06-03 Telephone [facility], 1.2.840.7 [id number] Methodi 00:00:00 00:00:[address] 3.430.2.7 Hospit a .3.860932 l .8 2020-06-02 2020-06-02 Telephone [facility], 1.2.840.1 [id number] Methodi 00:00:00 00:00:[address] 3.430.2.7 Hospit a .3.624702 l .8 2020-05-13 2020-05-13 Orders Provider, 1.2.840.1 [id number] 2100 165599 Methodi 00:00:00 00:00:00 Only Historical 80005.1.1 108 s t 3.430.2.7 Hospit a .3.994083 l .8 2020-05-09 2020-05-09 Telephone [facility], 1.2.840.1 [id number] Methodi 00:00:00 00:00:00 Sarai Lieberman 12486.1.1 660 s t 3.430.2.7 Hospit a .3.089877 l .8 2020-05-09 2020-05-09 Telephone [facility], 1.2.840.8 [id number] Methodi 00:00:00 00:00:[address] 3.430.2.7 Hospit a .3.991877 l .8 2020-05-08 2020-05-08 Telephone [facility], 1.2.840.8 [id number] Methodi 00:00:00 00:00:[address] 3.430.2.7 Hospit a .3.910971 l .8 2020-05-07 2020-05-07 Telephone [facility], 1.2.840.3 [id number] Methodi 00:00:00 00:00:[address] 3.430.2.7 Hospit a .3.179365 l .8 2020-05-05 2020-05-05 Telephone [facility], 1.2.840.7 [id number] Methodi 00:00:00 00:00:[address] 3.430.2.7 Hospit a .3.143584 l .8 2020-04-25 2020-05-03 [facility], 1.2.840.1 [id number] 2100 596739 Methodi 17:33:00 13:39:00 Encounter Ray 13363.1.[address] 3.430.2.7 Hospit a .3.959392 l .8 2020-04-28 2020-04-28 Anesthesia Tomas Pinon 1.2.840.1 [id number] Methodi 13:38:00 19:40:00 Event Justine Catalan 56921.1.[address] 3.430.2.7 Hospit a .3.487417 l .8 2020-04-28 2020-04-28 Surgery [facility] 1.2.840.1 [id number] 29739 46495 Methodi 13:00:00 17:10:[address] 3.430.2.7 Hospit a .3.671077 l .8 2020-04-25 2020-04-25 [facility], 1.2.840.1 [id number] 2100 989983 Methodi 10:00:00 17:32:00 Encounter Ray [address].1.[address] 3.430.2.7 Hospit a .3.952810 l .8 2020-04-25 2020-04-25 Office Yazmin, 1.2.840.1 [id number] 87742 89821 Methodi 11:43:50 13:44:26 Visit Ray 40436.1.[address] 3.430.2.7 Hospit a .3.110423 l .8 2020-04-25 2020-04-25 Travel 1.2.840.1 1.2.042.222 9142 774216 Methodi 00:00:00 00:00:[address] 3.430.2.7 0.2.7.3.698 Ho spita .3.997315 084.8 l .8 2020-04-24 2020-04-24 [facility], 1.2.840.1 [id number] 2 [id number] Methodi 00:00:00 00:00:00 Surgery Sarai Corbin. 86330.1.1 524 s t 3.430.2.7 Hospit a .3.222648 l .8 2020-04-22 2020-04-22 Telephone Meli, 1.2.840.1 [id number] 322 [id number] Methodi 00:00:00 00:00:[address] 3.430.2.7 Hospit a .3.872631 l .8 2020-04-22 2020-04-22 Travel 1.2.840.1 1.2.416.457 3625 747015 Methodi 00:00:00 00:00:[address] 3.430.2.7 0.2.7.3.698 Ho spita .3.546890 084.8 l .8 2020-04-21 2020-04-21 Emergency OniAmber 1.2.840.1 [id number] 2 [id number] Methodi 06:51:00 10:43:[address] 3.430.2.7 Hospit a .3.726030 l .8 2020-04-21 2020-04-21 Orders Meisenbach, 1.2.840.1 [id number] Methodi 00:00:00 00:00:00 Only Sarai Corbin. 48181.1.1 550 s t 3.430.2.7 Hospit a .3.606909 l .8 2020-04-16 2020-04-16 Telephone Meisenbach, 1.2.840.1 [id number] Methodi 00:00:00 00:00:00 Sarai Corbin. 30018.1.1 673 s t 3.430.2.7 Hospit a .3.901166 l .8 2020-04-10 2020-04-10 Telephone Jeredimasmaria elena, 1.2.840.2 [id number] Methodi 00:00:00 00:00:[address] 3.430.2.7 Hospit a .3.899073 l .8 2020-04-07 2020-04-07 Telephone Nahum, 1.2.840.1 [id number] 2099 953721 Methodi 00:00:00 00:00:[address] 3.430.2.7 Hospit a .3.209677 l .8 2020-04-01 2020-04-01 Orders Provider, 1.2.840.1 [id number] 2099 699132 Methodi 00:00:00 00:00:00 Only Historical 50520.1.1 049 s t 3.430.2.7 Hospit a .3.413455 l .8 2020-03-31 2020-03-31 Travel 1.2.840.1 1.2.660.854 6934 918852 Methodi 00:00:00 00:00:[address] 3.430.2.7 0.2.7.3.698 Ho spita .3.359934 084.8 l .8 2020-03-27 2020-03-27 Telephone Paula, Min 1.2.840.1 [id number] Methodi 00:00:00 00:00:[address] 3.430.2.7 Hospit a .3.099553 l .8 Results Test Description Test Time Test Comments Results Result Comments Source Novel Coronavirus 2019 Inhouse 2021-08-03 18:08:00 Test Item Value Reference Range Interpretation Comme nts Novel Coronavirus 2018 Negative Negative Posit bruno results are indicative of the Inhouse (test code = presenc e wmYUWN-GqJ-7 RNA, clinical COVNONPUI) correlation wit h patient [...] qualitative detection of nucleic acid s from ikvZQKA-FqU-8 virus and diagn osis of SARS-CoV-2 virusinfection. It is an Emergency Use Authorization ( EUA) testauthorized by the U.[place]. FDA. BASIC METABOLIC [id number] 09:37:00 Test Item Value Reference Range Interpretation [...] = 9.0 mg/dL 8.0-10.5 N CA) PROTHROMBIN [id number] 09:32:00 Test Item Value Reference Range Interpretation [...] o prevent recurre nt infarct). 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[facility] - XR CHEST 1 [id number] 00:00:00 [facility] 1955 Sex: F FAX: Lele Olivera DO [phone] [place]: St: ADM FAX: Jean Paul Scales [phone] FAX: Bahman Chopra [phone] Name: LIO WATTS [facility] : 1955 Age/S: 66/F [address] [place] [address] Unit #: [id number] Loc: [place] [address] Phys: Bahman Chopra [facility] Acct: [id number] Dis Date: Status:ADM IN PHONE #: [phone] Exam Date: 06/17/2021 1320 FAX #: [phone] Reason: WATCHMAN EXAMS: CPT CODE: [id number] XR CHEST 1 V 59386 PROCEDURE INFORMATION: Exam: XR Chest Examdate and [...] failure/volume loading. 2. Subsegmental atelectasis bilateral. at 1337 Reported and signed by: Lambert Vega M.D. CC: Lele Rahman DO; Mike Lund MD; Bahman Chopra Technologist: RT Taylor(R) Trnscrd Date/Time/By: 06/17/2021 (6911) : By: Susanna Orig Print D/T: S: 06/17/2021 (1954) PAGE 1 Signed ReportCOVID 19 Asymptomatic IH [id number] 12:29:00 Test Item Value Reference Range Interpretation [...] high or waivedcomplexit y tests. BASIC METABOLIC [id number] 11:37:00 Test Item Value Reference Range Interpretation [...] code = 9.0 mg/dL 8.0-10.5 N CA) [id number] 11:37:00 Test Item Value Reference Range Interpretation Comments PREALBUMIN (test code = PREALB) 24.3 mg/dL 16.0-40.0 N PROTHROMBIN [id number] 11:03:00 Test Item Value Reference Range Interpretation [...] o prevent recurre nt infarct). CBC W/AUTO [id number] 10:59:00 Test Item Value Reference Range Interpretation [...] 0.0-0.1 N NRBC#) - XR CHEST 2 [id number] 00:00:00 [facility] : 1955 Sex: F FAX: Lele Olivera DO [phone] [place]: St: PRE FAX: Jean Paul Scales MD [phone] Name: LIO WATTS [facility] : 1955 Age/S: 66/F [address] [place] [address] Blvd Unit #: [id number] Loc: [place] [address] Phys: [id number] Dis Date: Status: PRE SDC PHONE #: [phone] Exam Date: 06/16/2021 1120 FAX #: [phone] Reason: PREOP EXAMS: CPT CODE: [id number] XR CHEST 2 V 58821 PROCEDURE INFORMATION: Exam: XR Chest Exam date [...] MD Technologist: RT Andree(R) Trnscrd Date/Time/By: 06/16/2021 (1132) : By: [email or web address] Orig Print D/T: S: 06/16/2021 (7826) PAGE 1 Signed ReportGastrointestinal [id number] 04:35:05 Test Item Value Reference Interpretation Comments [...] Rotavirus PCR (test Not Detected code = 7281299) Salmonella PCR (test Not Detected code = [...] PCR Not Detected (test code = 7124) [facility] [id number] 19:17:40EXAMINATION: XR ABDOMEN 1 VW CLINICAL HISTORY: [...] clips are noted.[id number] [place] [facility] 1 [id number] 19:41:02EXAMINATION: OR FL < 1 HOUR C-arm fluoroscopy was requested in OR. Location: [facility] OR room 6 Procedure: EGD WITH [...] was requested in OR. Location: [facility] OR room 6 Procedure: EGD WITH BOTOX INJECTION INTO THE PYLORUS, ENDOFLIP, ON TABLE ESOPHAGRAM (N/A ) Start: 1140 End:1222 FluoroTime: .19sec Dose: 7.8mGy Tech: A.BIMPRESSION:Intraoperative fluoroscopic images. Radiologist was not present during the examination.Separate operative report will be issued by the physician performingthe procedure.[id number] 2020-09-08 19:30:47 Test Item Value Reference Range Interpretation Comments Case number (test [id number] code = 5301370) Surgical pathology See link below for PDF report (test code = Lab Report 2255) Result status (test This is Supplemental code = 1026391) Report for [id number] [facility] 1 Vw [id number] 23:06:58EXAMINATION: XR CHEST 1 VW PORTABLE HISTORY: [...] enlarged, similar to prior. Bilateral shoulder arthroplasties. [facility]-[id number] Interface, Radiology Results - 09/06/2020 6:09PM CDT [...] is enlarged, similar to prior.Bilateral shoulder arthroplasties.[facility]AL-[id number] [facility] HospitalIeqedacmJstloh1606-25-00 16:47:23Kirit Flood MD 09/05/2020 11:[address]: [...] Yes Number of Attempts at Approach: [address] [place] [address] 12 zole2605-19-26 23:21:56 Test Item Value Reference Range Interpretation [...] T wave abnormality, consider anterior ischemia-Abnormal ECG- [facility] qualitative [id number] 22:48:41 Test Item Value Reference Range Interpretation Comments Interpretation (test Negative results do code = 0050727) not preclude 2019-nCoV infection and should not be used as the sole basis for treatment or other patient management decisions. Negative results must be combined with clinical observations, patient history, and epidemiological information. COVID-19 qualitative Not-Detected Not-Detected RT-PCR result (test code = 65450-4) COVID-19 qualitative See link below for C ase Number: RT-PCR (test code = PDF Lab Report [id number] 1543) [facility]2021-04-09 16:31:00 Test Item Value Reference Range Interpretation Comments POC Activated Clotting Time (test code 153 s = POC Activated Clotting Time) [address]04-09 16:31:00 Test Item Value Reference Range Interpretation Comments POC Activated Clotting Time (test code 153 s = POC Activated Clotting Time) [address]04-09 16:31:00 Test Item Value Reference Range Interpretation Comments POC Activated Clotting Time (test code 153 s = POC Activated Clotting Time) [address]04-09 16:31:00 Test Item Value Reference Range Interpretation Comments POC Activated Clotting Time (test code 153 s = POC Activated Clotting Time) [address]04-09 16:31:00 Test Item Value Reference Range Interpretation Comments POC Activated Clotting Time (test code 153 s = POC Activated Clotting Time) [address]04-09 16:31:00 Test Item Value Reference Range Interpretation Comments POC Activated Clotting Time (test code 153 s = POC Activated Clotting Time) [address]04-09 16:31:00 Test Item Value Reference Range Interpretation Comments POC Activated Clotting Time (test code 153 s = POC Activated Clotting Time) [address]04-09 14:37:00 Test Item Value Reference Range Interpretation Comments POC Activated Clotting Time (test code 454 s = POC Activated Clotting Time) [address]04-09 14:37:00 Test Item Value Reference Range Interpretation Comments POC Activated Clotting Time (test code 454 s = POC Activated Clotting Time) [address]04-09 14:37:00 Test Item Value Reference Range Interpretation Comments POC Activated Clotting Time (test code 454 s = POC Activated Clotting Time) [address]04-09 14:37:00 Test Item Value Reference Range Interpretation Comments POC Activated Clotting Time (test code 454 s = POC Activated Clotting Time) [facility]coshrsJSBLOCVERD2818-32-[facility] 14:37:00 Test Item Value Reference Range Interpretation Comments POC Activated Clotting Time (test code 454 s = POC Activated Clotting Time) [facility] TomballVnzkgndIDFUIGHAJT4910-28-55 14:37:00 Test Item Value Reference Range Interpretation Comments POC Activated Clotting Time (test code 454 s = POC Activated Clotting Time) [facility]ballPnzaiozLJDCTKNLLL0862-23-36 14:37:00 Test Item Value Reference Range Interpretation Comments POC Activated Clotting Time (test code 454 s = POC Activated Clotting Time) [facility] TomballLexstihRFRYQTVPYL5614-20-59 14:13:00 Test Item Value Reference Range Interpretation Comments POC Activated Clotting Time (test code 354 s = POC Activated Clotting Time) [facility] TomballKrehyafVWCPYYDCUD9679-65-70 14:13:00 Test Item Value Reference Range Interpretation Comments POC Activated Clotting Time (test code 354 s = POC Activated Clotting Time) [facility] TomballIetykgsOUNGJZMEXL0330-29-52 14:13:00 Test Item Value Reference Range Interpretation Comments POC Activated Clotting Time (test code 354 s = POC Activated Clotting Time) [facility] TomballCigszvdPYOLOTUWIJ3748-08-75 14:13:00 Test Item Value Reference Range Interpretation Comments POC Activated Clotting Time (test code 354 s = POC Activated Clotting Time) [facility] TomballUhxpcjqAAFTAFQPXY3943-62-53 14:13:00 Test Item Value Reference Range Interpretation Comments POC Activated Clotting Time (test code 354 s = POC Activated Clotting Time) [facility] TomballQxpjrorHOOSQYVRXS4755-69-58 14:13:00 Test Item Value Reference Range Interpretation Comments POC Activated Clotting Time (test code 354 s = POC Activated Clotting Time) [facility] TomballYzzsbbdOUYQFURBUW1395-49-02 14:13:00 Test Item Value Reference Range Interpretation Comments POC Activated Clotting Time (test code 354 s = POC Activated Clotting Time) [facility] BANK DSCWGVI0990-93-24 10:37:00Negative (08/29/20 5:37 AM) [facility] XLGKE8548-89-46 10:37:73807Mxghqaqf HermannCHEM PANEL 2020-08-29 10:37:0028[facility]annCHEM WKOTE0353-27-62 10:37:001.01[facility] HermannCHEM CFMCK8163-21-91 10:37:87586Oielbgvi HermannCHEM BLNRT8538-27-55 10:37:003.8[facility] HermannCHEM ZFIDJ0226-98-23 10:37:62810Xljhnlim HermannCHEM JYAYL1328-55-96 10:37:0028[facility] HermannCHEM BPSGO8635-60-46 10:37:009.8 [facility]annCHE[facility] FLTZV4041-68-99 10:37:0011.8[facility] HermannCHEM PANEL 2020-08-29 10:37:0059[facility] HermannCHEM CISYA3314-37-47 10:37:002.9[facility] ZjruxruFHHAULTTBB8905-09-34 10:37:006.8[facility] KtixjlqMLFNSFPHMP8798-17-48 10:37:004.47[facility] CvxbqjrHPBDDWSHRS7379-65-98 10:37:0010.6[facility] TIAUJGIUME6898-51-91 10:37:0034.0[facility] UdlnmkbDLXKGPYWNH5980-95-75 10:37:00 76.1[facility] YdoltrjEXHKVJUWLK5964-96-01 10:37:00 Test Item Value Reference Range Interpretation Comments MCH (test code = MCH) 23.8 pg 27.0-31.0 [facility] KnkczflGGEFHOUMSH1420-35-21 10:37:0031.3[facility] HermannHEMATOLOGY 2020-08-29 10:37:0018.2[facility] LtzwataDIIUPBMOMP0106-99-66 10:37:81125Cpkpyvsv YtutljiTFWAWNALOF7557-55-12 10:37:007.5[facility] CtwzmwwEULPCOIPYI2990-23-11 10:37:00 Test Item Value Reference Range Interpretation Comments PT (test code = PT) 12.8 s 12.0-14.7 [facility] LwszdmuKHYOQVTBHA3677-89-71 10:37:00 Test Item Value Reference Range Interpretation Comments INR (test code = INR) 0.97 1 0.85-1.17 [facility] DarqyxuTVHRHETPXS2616-15-05 10:37:00 Test Item Value Reference Range Interpretation Comments PTT (test code = PTT) 25.0 s 22.9-35.8 [facility] FmkuqvuWYMVGOKZPI3468-69-61 10:37:0070.5[facility] HermannHEMATOLOGY 2020-08-29 10:37:0018.8[facility] IjtralmIMTZCLOPEW1782-55-58 10:37:009.5[facility] JquvygjKGIZWVAEXD9985-64-08 10:37:000.9[facility] GlvowidJMNIAQXNNK5839-97-80 10:37:000.3[facility] CjuklncUMZROMPTWH2106-74-23 10:37:004.8[facility] DDNRUUNZNI1001-00-66 10:37:001.3[facility] MfwyzmzKLBKSXFMVL8883-18-55 10:37:000.6 [facility] ZntuchvLPVVKAOETO8132-22-74 10:37:000.1[facility] HermannHEMATOLOGY 2020-08-29 10:37:001+ *ABN*(08/29/20 5:37 AM)[facility] XukbzniYDACQGNZIG8373-77-05 10:37:00Not Detected (08/29/20 5:37 AM)[facility]annBLOOD BANK RESULTS 2020-08-29 10:37:00Negative (08/29/20 5:37 AM)[facility] HermannCHEM ZNRGP4872-30-56 10:37:61473Vhogugth HermannCHEM YHZAP0646-70-21 10:37:0028[facility] HermannCHEM XJVHH3903-69-96 10:37:001.01[facility] HermannCHEM NAVWD7870-93-93 10:37:35066 [facility]annCHEM MIIHF5431-17-20 10:37:003.8[facility] HermannCHEM PANEL 2020-08-29 10:37:32774Bwnpireb HermannCHEM KJZWC4181-15-74 10:37:0028[facility] HermannCHEM IWMGE1033-23-60 10:37:009.8[facility] HermannCHEM ATGAE8723-09-94 10:37:0011.8[facility] HermannCHEM WNVZO2959-49-15 10:37:0059[facility] HermannCHEM YNNWB7958-26-62 10:37:002.9[facility] NejqkqqVQHPHYGCAK7026-13-73 10:37:006.8 [facility] NkdgzrcERFTTJTNJS4617-53-55 10:37:004.47[facility] HermannHEMATOLOGY 2020-08-29 10:37:0010.6[facility] FighcpbLZSEUKMARY1390-35-06 10:37:0034.0[facility] EwnaufxNQLDZGCXER3528-69-22 10:37:0076.1[facility] IqqfadaXCYIGIIONX5226-44-01 10:37:00 Test Item Value Reference Range Interpretation Comments MCH (test code = MCH) 23.8 pg 27.0-31.0 [facility] IjvvnuuJMNJRXFLND5754-93-65 10:37:0031.3[facility] HermannHEMATOLOGY 2020-08-29 10:37:0018.2[facility] SivpnhdJBNONJUHXH1850-98-86 10:37:24029Arahsfdu AfxubsaHBQMCMQCFB2985-33-00 10:37:007.5[facility] MbbjsvwTLOHBBRZPW1801-62-38 10:37:00 Test Item Value Reference Range Interpretation Comments PT (test code = PT) 12.8 s 12.0-14.7 [facility] WwkbnspYHJXAAHPPO7059-29-30 10:37:00 Test Item Value Reference Range Interpretation Comments INR (test code = INR) 0.97 1 0.85-1.17 [facility] XxxauzhKAVOSSANTI8381-08-33 10:37:00 Test Item Value Reference Range Interpretation Comments PTT (test code = PTT) 25.0 s 22.9-35.8 [facility] SrcpafxCYWYVUKMBB8535-17-78 10:37:0070.5[facility] HermannHEMATOLOGY 2020-08-29 10:37:0018.8[facility] MqcqnymLPCWIMBLGY1553-74-21 10:37:009.5[facility] GohszusBHBVDLHVTN8165-89-88 10:37:000.9[facility] SnushixYWMCXYDSTY8444-04-63 10:37:000.3[facility] FxeebnrMUNOPJURID1779-57-13 10:37:004.8[facility] BNOHBFIWAY8386-14-68 10:37:001.3[facility] RpjtwhoVPWLDESKQP2867-19-42 10:37:000.6 [facility] ZbekbfiRPUCRCBOHZ6714-63-21 10:37:000.1[facility] HermannHEMATOLOGY 2020-08-29 10:37:001+ *ABN*(08/29/20 5:37 AM)[facility] CuaabutFGEUNYHORU1505-44-97 10:37:00Not Detected (08/29/20 5:37 AM)[facility]annBLOOD BANK RESULTS 2020-08-29 10:37:00Negative (08/29/20 5:37 AM)[facility] HermannCHEM WCJWS7680-73-04 10:37:23341Dnroawex HermannCHEM FINXQ1044-73-47 10:37:0028[facility] HermannCHEM FVJOX4604-48-93 10:37:001.01[facility] HermannCHEM FDRRM2668-40-95 10:37:45914 [facility] HermannCHEM GEWWV1250-57-85 10:37:003.8[facility] HermannCHEM PANEL 2020-08-29 10:37:91944Ulztlwyd HermannCHEM LHWPG7282-51-36 10:37:0028[facility] HermannCHEM PUAIJ0429-60-84 10:37:009.8[facility] HermannCHEM QCIDM3911-80-28 10:37:0011.8[facility] HermannCHEM PISNZ0275-72-51 10:37:0059[facility] HermannCHEM UYZHK0591-82-31 10:37:002.9[facility] MfxxctrCDBXDHGPOR5210-20-30 10:37:006.8 [facility] CntexpePOGBNIWJAJ2258-31-81 10:37:004.47[facility] HermannHEMATOLOGY 2020-08-29 10:37:0010.6[facility] BjdpwboZQUQMEYZVL0224-87-30 10:37:0034.0[facility] SjnsjjkRQDFFLJTYZ3890-67-82 10:37:0076.1[facility] TmhturaAVRDJRTIWQ5138-60-06 10:37:00 Test Item Value Reference Range Interpretation Comments MCH (test code = MCH) 23.8 pg 27.0-31.0 [facility] GbuiskgURPNDQMLMF7852-63-92 10:37:0031.3[facility] HermannHEMATOLOGY 2020-08-29 10:37:0018.2[facility] XuqnamdJZFWENSHGE3953-46-01 10:37:65544Qsivfbgs GlowynlAGTBZHPSJL8410-47-94 10:37:007.5[facility] QouakfxNPXYKJKAQY7510-22-19 10:37:00 Test Item Value Reference Range Interpretation Comments PT (test code = PT) 12.8 s 12.0-14.7 [facility] XnebnzmBETJUCCTKH4902-76-22 10:37:00 Test Item Value Reference Range Interpretation Comments INR (test code = INR) 0.97 1 0.85-1.17 [facility] QoedghlFVTYNKSNVP0252-75-91 10:37:00 Test Item Value Reference Range Interpretation Comments PTT (test code = PTT) 25.0 s 22.9-35.8 [facility] SxfljxuZODEFLSOAW4558-00-82 10:37:0070.5[facility] HermannHEMATOLOGY 2020-08-29 10:37:0018.8[facility] YkpqgihSPPSKVMONN9390-50-64 10:37:009.5[facility] AkxiacaIOESQSFENC4988-99-53 10:37:000.9[facility] EdasmosPBDWYSEUAF2987-62-99 10:37:000.3[facility] WfwcqdaYAAGERQQGI3378-98-16 10:37:004.8[facility] TRYEZFIVVL3475-18-58 10:37:001.3[facility] LkddiwgHYOXMTPJRN7556-06-82 10:37:000.6 [facility] EtiygmbFBTAVTSCEY1631-79-65 10:37:000.1[facility] HermannHEMATOLOGY 2020-08-29 10:37:001+ *ABN*(08/29/20 5:37 AM)[facility] XcvwqjfISLXIDPONM3787-84-89 10:37:00Not Detected (08/29/20 5:37 AM)[facility] HermannBLOOD BANK RESULTS 2020-08-29 10:37:00Negative (08/29/20 5:37 AM)[facility] HermannCHEM AOHNI3807-95-41 10:37:79960Cigmmxsx HermannCHEM DDHPK7154-25-44 10:37:0028[facility] HermannCHEM WLXZZ9757-25-55 10:37:001.01[facility] HermannCHEM TCWSN8648-46-11 10:37:42823 [facility] HermannCHEM IKOHY7111-70-76 10:37:003.8[facility] HermannCHEM PANEL 2020-08-29 10:37:63312Vpauquvr HermannCHEM MWUFZ1882-01-81 10:37:0028[facility] HermannCHEM ACGBZ6761-34-58 10:37:009.8[facility] HermannCHEM UZGOX3897-83-51 10:37:0011.8[facility] HermannCHEM TBTFP9696-43-04 10:37:0059[facility] HermannCHEM ULZHU7825-86-34 10:37:002.9[facility] IknugiwHZCZHXWOWM2756-91-36 10:37:006.8 [facility] PjtceowKXCEDNGGFU3499-98-33 10:37:004.47[facility] HermannHEMATOLOGY 2020-08-29 10:37:0010.6[facility] RgkymbvLMFUACUSCO1700-60-63 10:37:0034.0[facility] PvkxlpnNLUAYFTYWV0353-91-15 10:37:0076.1[facility] AygwspaWLQWMHYHLL1834-46-27 10:37:00 Test Item Value Reference Range Interpretation Comments MCH (test code = MCH) 23.8 pg 27.0-31.0 [facility] BvrbpmcIJLLTBBLCV2307-67-21 10:37:0031.3[facility] HermannHEMATOLOGY 2020-08-29 10:37:0018.2[facility] JylaschPEWWNTXGVB7696-54-82 10:37:33691Vzydikol UkwgbvjMAETTIGAEI7712-02-78 10:37:007.5[facility] CtdlzdkRNABFOIOTC1487-77-91 10:37:00 Test Item Value Reference Range Interpretation Comments PT (test code = PT) 12.8 s 12.0-14.7 [facility] ChkgltfQIDDLTSMKF1152-47-35 10:37:00 Test Item Value Reference Range Interpretation Comments INR (test code = INR) 0.97 1 0.85-1.17 [facility] SwtkdjzSLXZXZXYJD3313-96-87 10:37:00 Test Item Value Reference Range Interpretation Comments PTT (test code = PTT) 25.0 s 22.9-35.8 [facility] GdcwmsgLTQSFVXSZX8993-53-64 10:37:0070.5[facility] HermannHEMATOLOGY 2020-08-29 10:37:0018.8[facility] ZxullfzGHRZYPSBWS0089-79-39 10:37:009.5[facility] GgidqfqOLGJUCNMOP8790-79-46 10:37:000.9[facility] OfowjdnHCSUYCNMDS3884-44-18 10:37:000.3[facility] GgqdxxfHSGRCLRUMI2490-59-60 10:37:004.8[facility] JWESIMIYEP8466-68-06 10:37:001.3[facility] IcophseTAUUXAQXMP5090-07-14 10:37:000.6 [facility] GnzvukbWHOVWQHHCN2118-26-04 10:37:000.1[facility] HermannHEMATOLOGY 2020-08-29 10:37:001+ *ABN*(08/29/20 5:37 AM)[facility] EhwrpjwHPGFEETJIM9739-35-74 10:37:00Not Detected (08/29/20 5:37 AM)[facility] HermannBLOOD BANK RESULTS 2020-08-29 10:37:00Negative (08/29/20 5:37 AM)[facility] HermannCHEM TRWRP2040-54-17 10:37:82641Mtqnqakx HermannCHEM UFIDK4144-86-58 10:37:0028[facility] HermannCHEM PHBIV5761-25-66 10:37:001.01[facility] HermannCHEM ZLNEU3860-20-25 10:37:40598 [facility] HermannCHEM FSPHR5686-65-44 10:37:003.8[facility] HermannCHEM PANEL 2020-08-29 10:37:09191Xajeuqoc HermannCHEM VAKZI0635-45-36 10:37:0028[facility] HermannCHEM KBBRU5187-68-81 10:37:009.8[facility] HermannCHEM CCYVM9577-25-99 10:37:0011.8[facility] HermannCHEM BCCXU8466-59-08 10:37:0059[facility] HermannCHEM KTQBF8933-49-26 10:37:002.9[facility] MylerdvYLDUZMMGMR3942-97-66 10:37:006.8 [facility] YswwrhyUBXNMFKJNP6093-92-21 10:37:004.47[facility] HermannHEMATOLOGY 2020-08-29 10:37:0010.6[facility] LbwfidfCMIIJHAHMC6743-76-43 10:37:0034.0[facility] XqhdyynACBYCDFURD3308-88-62 10:37:0076.1[facility] UiweaceSRIWZTSUZD7257-79-25 10:37:00 Test Item Value Reference Range Interpretation Comments MCH (test code = MCH) 23.8 pg 27.0-31.0 [facility] CzujsqtPGYMASZLNJ7847-52-22 10:37:0031.3[facility] HermannHEMATOLOGY 2020-08-29 10:37:0018.2[facility] FoxiejtKXLEJBVTJF3007-18-13 10:37:39902Dzzqwqsc UbcecaoGBQKCAQHDQ3253-99-58 10:37:007.5[facility] WawyhtfQCJWIJSTBH3550-35-08 10:37:00 Test Item Value Reference Range Interpretation Comments PT (test code = PT) 12.8 s 12.0-14.7 [facility] ZecstyaUHRWTSTVMJ1853-64-45 10:37:00 Test Item Value Reference Range Interpretation Comments INR (test code = INR) 0.97 1 0.85-1.17 [facility] AacdzyvDOQSNIFMRH4928-85-33 10:37:00 Test Item Value Reference Range Interpretation Comments PTT (test code = PTT) 25.0 s 22.9-35.8 [facility] FecavukEWWJJZWKQD5610-75-38 10:37:0070.5[facility] HermannHEMATOLOGY 2020-08-29 10:37:0018.8[facility] GjoflyyRYHCPLLNRB6690-39-60 10:37:009.5[facility] FpdnmcjAEGWCLLTAO9415-88-67 10:37:000.9[facility] FodvmwyWEXTNXWTWA5313-51-57 10:37:000.3[facility] GjhkvzqYUFYTDVGOT1963-68-93 10:37:004.8[facility] RQYYZCAHNR2590-33-56 10:37:001.3[facility] XkzocqnAOKEGPHHOD8462-90-73 10:37:000.6 [facility] UyohwtnJTJWETZLLE4268-51-21 10:37:000.1[facility] HermannHEMATOLOGY 2020-08-29 10:37:001+ *ABN*(08/29/20 5:37 AM)[facility] CvmtgtsBBBYSRTEZU6701-59-65 10:37:00Not Detected (08/29/20 5:37 AM)[facility]annBLOOD BANK RESULTS 2020-08-29 10:37:00Negative (08/29/20 5:37 AM)[facility] HermannCHEM YZGVE2721-27-31 10:37:38193Yfdzhuuo HermannCHEM NPQIJ2110-27-54 10:37:0028[facility] HermannCHEM MRDIX9193-40-12 10:37:001.01[facility] HermannCHEM ALEHL6572-14-58 10:37:78765 [facility] HermannCHEM TRMBS1573-47-06 10:37:003.8[facility] HermannCHEM PANEL 2020-08-29 10:37:17361Bjtttkca HermannCHEM SRDMP0729-64-61 10:37:0028[facility] HermannCHEM AGHZB3590-93-70 10:37:009.8[facility] HermannCHEM YDACZ0874-31-21 10:37:0011.8[facility] HermannCHEM AJBOB4671-46-08 10:37:0059[facility] HermannCHEM IQOAN2293-86-33 10:37:002.9[facility] WkspazrPZHUSYBKDI7647-26-32 10:37:006.8 [facility] NjjggopVVKETJAQDQ1197-28-20 10:37:004.47[facility] HermannHEMATOLOGY 2020-08-29 10:37:0010.6[facility] VbjmxcuWXAXHEFUVH1853-25-15 10:37:0034.0[facility] LokgpxoXPLIMXJJNC4819-17-98 10:37:0076.1[facility] RqjfxkyFIMQGNBIWL6141-75-14 10:37:00 Test Item Value Reference Range Interpretation Comments MCH (test code = MCH) 23.8 pg 27.0-31.0 [facility] FhfnqtrSFVHCDIUVO1834-41-37 10:37:0031.3[facility] HermannHEMATOLOGY 2020-08-29 10:37:0018.2[facility] DnckjqdVIVGCJNUKQ2993-78-12 10:37:96087Pttenjae ZyeyrplMEFMLBKMVZ4368-20-83 10:37:007.5[facility] SvlpbnuCTCXHJYKQT2575-30-15 10:37:00 Test Item Value Reference Range Interpretation Comments PT (test code = PT) 12.8 s 12.0-14.7 [facility] WytdnbkYNVDUGKHLD3976-06-27 10:37:00 Test Item Value Reference Range Interpretation Comments INR (test code = INR) 0.97 1 0.85-1.17 [facility] IggzkrsJKLSQGVGTE0262-52-72 10:37:00 Test Item Value Reference Range Interpretation Comments PTT (test code = PTT) 25.0 s 22.9-35.8 [facility] YbumyflVSRJLOAOLC2638-45-71 10:37:0070.5[facility] HermannHEMATOLOGY 2020-08-29 10:37:0018.8[facility] AohvhxhJGKFGPKILZ3643-92-00 10:37:009.5[facility] SvatmqcSGCFNFZEPC4111-65-02 10:37:000.9[facility] JiudqzhUWBVBXNGMK5589-93-12 10:37:000.3[facility] AdyhlzaMMEIVAEAIK8323-31-12 10:37:004.8[facility] CBEYAWVTJV0608-52-57 10:37:001.3[facility] XbpzxtrGAUYQJOLGM9062-99-85 10:37:000.6 [facility] DfagcxxQWDCBMQGXT3888-40-18 10:37:000.1[facility] HermannHEMATOLOGY 2020-08-29 10:37:001+ *ABN*(08/29/20 5:37 AM)[facility] JsmiemnDXKUVQRYWO4434-20-25 10:37:00Not Detected (08/29/20 5:37 AM)[facility] HermannBLOOD BANK RESULTS 2020-08-29 10:37:00Negative (08/29/20 5:37 AM)[facility] HermannCHEM ODEDE3085-00-19 10:37:64392Ikbcuhkm HermannCHEM PWGOK2889-28-93 10:37:0028[facility] HermannCHEM DNUCQ3574-04-22 10:37:001.01[facility] HermannCHEM SQVAD1663-99-88 10:37:65726 [facility]annCHEM FHFYO8494-90-95 10:37:003.8[facility] HermannCHEM PANEL 2020-08-29 10:37:02280Daefgwaf HermannCHEM HPITY8502-95-79 10:37:0028[facility] HermannCHEM BCXIP0734-82-98 10:37:009.8[facility] HermannCHEM KIBVP2388-04-35 10:37:0011.8[facility] HermannCHEM SSXBU4366-90-23 10:37:0059[facility] HermannCHEM SXGLO2698-38-58 10:37:002.9[facility] BdjcrjqTBKCKRMGZZ3387-70-50 10:37:006.8 [facility] BwwvsxzLAURKSZGQK4465-81-11 10:37:004.47[facility] HermannHEMATOLOGY 2020-08-29 10:37:0010.6[facility] GofxdwaBURZIMNCZO8184-11-54 10:37:0034.0[facility] JeeoiooACUMISIXBR6883-98-52 10:37:0076.1[facility] JfcsmxpHZVTILPVBU4434-32-58 10:37:00 Test Item Value Reference Range Interpretation Comments MCH (test code = MCH) 23.8 pg 27.0-31.0 [facility] DxmmcuvHKVSPBTVQL0673-89-20 10:37:0031.3[facility] HermannHEMATOLOGY 2020-08-29 10:37:0018.2[facility] UegusvlNKJJCURUSR0983-89-75 10:37:04075Vayswiyk JcczszbTXWWJIWIMD2604-70-49 10:37:007.5[facility] XjqmfbyQDZZBBXRWY9589-14-92 10:37:00 Test Item Value Reference Range Interpretation Comments PT (test code = PT) 12.8 s 12.0-14.7 [facility] DbbwijnSZGKVKWZFS3502-78-33 10:37:00 Test Item Value Reference Range Interpretation Comments INR (test code = INR) 0.97 1 0.85-1.17 [facility] NorgfpmYMNABCQKHS1459-61-55 10:37:00 Test Item Value Reference Range Interpretation Comments PTT (test code = PTT) 25.0 s 22.9-35.8 [facility] KrlulvcPVCSTPVZUE8653-05-72 10:37:0070.5[facility] HermannHEMATOLOGY 2020-08-29 10:37:0018.8[facility] HovgbquCKOBJXXGYQ2894-71-81 10:37:009.5[facility] SnjvbfrGWVVFITLFZ2531-47-64 10:37:000.9[facility] DpsyyxgMVMQMXBHUA8163-85-13 10:37:000.3[facility] AexfaesDONJIIDSVP3763-94-37 10:37:004.8[facility] EQFGEQZVKD6552-97-82 10:37:001.3[facility] SoiopqfHXBLBTMKSU6659-35-73 10:37:000.6 [facility] DxwelzuDPMAOJMRDD4240-00-39 10:37:000.1[facility] HermannHEMATOLOGY 2020-08-29 10:37:001+ *ABN*(08/29/20 5:37 AM)[facility] PaxqdmtOYZEBZOQMW8686-15-40 10:37:00Not Detected (08/29/20 5:37 AM)[facility] 2020-08-27 23:14:39PROCEDURE: NM GASTRIC [...] rate, with complete emptying by 4 hours. [facility]-[id number] Interface, Radiology Results 08/27/2020 6:17 PM CDT [...] rate, with complete emptying by 4 hours. [facility]-[id number][facility] 2020-05-09 21:24:58 Test Item Value Reference Range Interpretation Comments Misc test HIV-1 RNA QUAL PCR name (test code = 2566) Misc test see note Human Immunodef iciency result (test Virus 1 (HIV-1) by code = 1730) Qualitative Scrap Preparer-M ediated Amplification ( TMA) [facility] test code 9224011 HIV-1 by Qualit ative TMA See Note SOURCE/SPECIMEN PLASMA HIV-1 RNA, QUAL ITATIVE TMA HIV-1 RNA, QL TMA T EXHIBITS COORDINATOR Test Not Performed. Initial testing necessi tated a repeat, but the re was insufficient sa mple to perform repeat. SAMPLE LEFT FOR REPEAT IS 50 uL. NEED 1000 u L TO RUN REPEAT. This te st was performed using the APTIMA(R) HIV-R NA Qualitative Ass ay (Gen-Probe). ======== ======== Te st performed by:[facility] [place] [id number] KYLE (test HIVQL - HIV-1 RNA, code = KYLE) Qualitative TMA (FROZEN)AR Test Code: 0399237Vmyyys: plasma [facility] duplex venous upper zdifsrrbf9489-27-02 04:57:00 Vascular Ultrasound Laboratory Upper Extremity Venous Report [id number] [address] Pat.Name: MAC LIOMaria Elena Lozano.ID: [id number] St.Date: 04/30/2020 Refer.MD: ELISEO ARCE MD Exam Time: 5:04:00 PM Study Type:UE Venous Age: 9 1955,65Y Sex: FEMALE Sonogrphr: Dwayne Manio, RVS, RCS Pat. Stat.:Inpatient Room: [place] [address] 2020 Tape Vol: EDGAR, CPT - 4: 17709 Echo Event ID:[id number] Order ID: [id number] Reason for Study:Arm swelling or pain, DVT [...] veins.*Preliminary result reported to ASHLEY Santos @ 0352 on 04/30/20.PHYSICIAN INTERPRETATION Venous examination of the both upper extremities and neck demonstratedno evidence of deep venous thrombosis. Total superficial vein thrombosis of the right basilic vein. FINDINGS: Signed 04/30/2020 10:57 PMFrancis Cabral MD, RPVIIntnathaly, Radiology Results In - 04/30/2020 10:58 PM CST Vascular Ultrasound Laboratory Upper Extremity Venous Report [id number] [address] Pat.Name: LIO WATTS Pat.ID: [id number] .Date: 04/30/2020 Refer.MD: ELISEO ARCE MD Exam Time: 5:04:00 PM Study Type:UE Venous Age: 9 1955,65Y Sex: FEMALE Sonogrphr: IBIS Espinosa, SANKET Pat. Stat.:Inpatient Room: [place] [address] 2020 Tape Vol: JM, CPT - 4: 66957 Echo Event ID:[id number] Order ID: [id number] Reason for Study:Arm swelling or pain, DVT [...] veins.*Preliminary result reported to ASHLEY Santos @ 0581 on 04/30/20.PHYSICIAN INTERPRETATION Venous examination of the both upper extremities and neck demonstratedno evidence of deep venous thrombosis. Total superficial vein thrombosis of the right basilic vein. FINDINGS: ------Signed 04/30/2020 10:57 PMFrancis Cabral MD, [facility] TexasXR Chest 2 [id number] 22:21:01EXAMINATION: XR CHEST 2 VW CLINICAL HISTORY: [...] process or active disease of the chest.[id number] Unsuccessful Xqfsrdt3592-15-27 17:14:34ANicole zhang RN 04/30/2020 11:25 AMMidline Unsuccessful [...] place a PIV g.20 in lower arm .[facility]XR Abdomen 1 Vw Jefpfglh0135-61-42 16:20:14EXAMINATION: XR ABDOMEN 1 VW PORTABLE CLINICAL HISTORY: Abdominal pain post op COMPARISON: No prior IMPRESSION:1.Residual barium within the colon throughout. No small bowel obstruction noted. [facility]-2U [id number] Interface, Radiology Results Incoming - 04/30/2020 10:23 AM CST EXAMINATION: XR ABDOMEN 1 VW PORTABLECLINICAL HISTORY: Abdominalpain post opCOMPARISON: No priorIMPRESSION:1.Residual barium within the colon throughout. No smallbowel obstruction noted.[facility]-[id number] Scott & White Medical Center – TaylorFstxkxicWythlx8351-74-40 20:57:57Carlee Malloy MD 04/28/2020 2:59 PMAirwayPerformed by: Carlee Malloy MDAuthorized by: Carlee Malloy MD Location: ORUrgency: ElectiveDifficult Airway: No Anesthesiologist: Kvng Malloy, FLOERNTINesident/SMALL APPLIANCE ASSEMBLY SUPERVISOR/AA: Allan Morocho, DOPerformed by: resident/SMALL APPLIANCE ASSEMBLY SUPERVISOR/AAPreoxygenated ztic519% O2: Yes C- spine Precautions Maintained Throughout: [...] No Number of Attempts at Approach: [facility], (w Contrast, Strain and 3D if needed)2020-04-28 00:20:00 Echocardiography Report [address] [place] [address] Pat.Name: LIO WATTS.ID: [id number] St.Date: 04/27/2020 Refer.MD: ELISEO ARCE MD Exam Time: 2:21:00 PM Study Type:Routine Echo Height: 64in Weight: 213lb BSA: 2.01 m2 Age: 9 1955,65Y Sex: FEMALE BP: 128/89 HR: 102 bpm Sonogrphr: SANKET Perkins Pat. Stat.:Inpatient Room: [facility] Study Status:Final Echo Event ID:[id number] Order ID: [id number] Reason for Study:Atrial FibrillationHistory / Clinical:Hypertension Procedures: [...] estimate PA systolic pressure. MEASUREMENTS: 2DParasternal Long [place] Ao An 2.2 cm LVPWd 1 cm [...] 04/27/2020 6:21 PM CST Echocardiography Report [address] [facility], [place] [address], [place] [address] Pat.Name: LIO WATTS.ID: [id number] .Date: 04/27/2020 Refer.MD: ELISEO ARCE MD Exam Time: 2:21:00 PM Study Type:Routine Echo Height: 64in Weight: 213lb BSA: 2.01 m2 Age: 9 1955,65Y Sex: FEMALE BP: 128/89 HR: 102 bpm Sonogrphr: SANKET Perkins [facility]. Stat.:Inpatient Room: [facility] Study Status:Final Echo Event ID:[id number] Order ID: [id number] Reason for Study:Atrial FibrillationHistory / Clinical:Hypertension Procedures: [...] PA systolic pressure.- MEASUREMENTS: ---- 2DParasternal Long [place] Ao An 2.2 cm LVPWd 1 cm [...] 06:20 [facility] Esophagram Double [id number] 18:07:12EXAMINATION: FL ESOPHAGRAM DOUBLE CONTRAST CLINICAL HISTORY: [...] Wo Contrast Abdomen Wo Contrast Pelvis Wo [id number] 15:23:55EXAMINATION: CT CHEST WO CONTRAST ABDOMEN WO [...] chronic and incidental findings as detailed above. [facility]-[id number] Dictated and approved by radiology resi dent/fellow: Jenna Valenzuela M.D. I, Medhat Flowers Jr., M.D., personally reviewed the images and resident's/fellow's findings and agree with the final report.[facility], Radiology Results Incoming - 04/21/2020 9:27 AM [...] aorta.4.Additional chronic and incidental findings as detailed above.[facility]-[id number] and approved by nursing resident/fellow: Jenna Valenzuela M.D.I, Medhat Flowers Jr., M.D., personally reviewed the images and resident's/fellow's findings and agree with the final report. [facility], GC, TV,PCR, IN [id number] 15:38:00 Test Item Value Reference Range Interpretation Comments FT (test code = CHTR) Not detected (qualifier Not Detected N value) FT (test code = Not detected (qualifier Not Detected N NGONO) value) FT (test code = TRVG) Not detected (qualifier Not Detected N value) URINALYSIS WITH [id number] 10:57:00 Test Item Value Reference Range Interpretation Comments Color (test code = UCOLR) Dk. Yellow Clarity (test code = UCLAR) Hazy Glucose (test code = UGLUC) NEGATIVE NEGATIVE N Bilirubin (test code = UBILI) NEGATIVE NEGATIVE N Ketones (test code = UKET) NEGATIVE NEGATIVE N Specific [place] (test code = 1.025 1.005-1.030 A USPGR) [...]
--- NOTE | 2021-08-28 08:21 | RAD REPORT ---
EXAM DESCRIPTION: CT - Head Brain Wo Cont - 08/28/2021 7:45 am CLINICAL HISTORY: Weakness;Dizziness Fall, trauma, head injury COMPARISON: Head Brain Wo Cont dated 06/26/2021; Head Brain Wo Cont dated 06/07/2021 TECHNIQUE: All CT scans are performed using dose optimization technique as appropriate and may inclu de automated exposure control or mA/KV adjustment according to patient size. FINDINGS: No intracranial hemorrhage, hydrocephalus or extra-axial fluid collection.Mild generalized brain atrophy is present with moderate periventricular and deep white matter chronic microvascular i schemic changes.No areas of brain edema or evidence of midline shift. The paranasal sinuses and mastoids are clear. The calvarium is intact. IMPRESSION: No acute intracranial abnormality.
[2021-08-28 08:36] LABS: Urine Blood Trace-lysed (Negative); Urine Glucose Negative (Negative); Urine Protein Trace (Negative)
--- NOTE | 2021-08-28 09:00 | RAD REPORT ---
EXAM DESCRIPTION: RAD - Chest Single View - 08/28/2021 8:11 am CLINICAL HISTORY: COUGH Chest pain. COMPARISON: Chest Single View dated 08/21/2021; Chest Pa And Lat (2 Views) dated 08/11/2021; Chest Sing le View dated 08/10/2021; Chest Single View dated 07/23/2021 FINDINGS: Portable technique limits examination quality. The lungs are grossly clear. The heart is mildly enlarged in size. Bilateral shoulder arthroplasty. IMPRESSION: No acute intrathoracic process suspected.
[2021-08-28 09:04] LABS: Absolute Lymphocytes (CBC) 1.3 K/uL (0.7-4.9); Hematocrit 31.9 % (36.0-45.0); Lymphocytes % 17.8 % (15.3-44.8); MPV 7.3 fL (7.6-11.3); RBC Red Blood Cell Count 4.25 M/uL (3.86-4.86)
[2021-08-28 09:07] LABS: Protime INR 1.12
--- NOTE | 2021-08-28 09:12 | RAD REPORT ---
EXAM DESCRIPTION: RAD - Hand Left 3 View - 08/28/2021 7:59 am CLINICAL HISTORY: PAIN COMPARISON: Hand Left 3 View dated 04/03/2014 FINDINGS: Prominent arthritic changes are present involving the radiocarpal joint. Remodeling of the distal radius with bony fragmentation present likely related to old fracture. No acute fracture seen .
--- NOTE | 2021-08-28 09:12 | RAD REPORT ---
EXAM DESCRIPTION: RAD - Wrist Left 3 View - 08/28/2021 7:59 am CLINICAL HISTORY: PAIN Pain COMPARISON: Wrist Left 3 View dated 04/03/2021; Wrist Left 3 View dated 07/23/2017 FINDINGS: Bony remodeling of the distal radius with chronic corticated fragmentation present, likely related to old fracture. Widening of the scapholunate interval is seen likely attributable to tear of the scapholunate ligament. No acute fracture evident.
[2021-08-28 09:30] LABS: Albumin 3.5 g/dL (3.4-5.0); Bilirubin Direct 0.2 mg/dL (0-0.2); Bilirubin Total 0.6 mg/dL (0.2-1.0); Magnesium 2.1 mg/dL (1.8-2.4); Protein, Total 7.7 g/dL (6.4-8.2); Troponin High Sensitivity 14.5 pg/mL (<58.9)
[2021-08-28 09:42] LABS: Potassium 2.7 mmol/L (3.5-5.1)
[2021-08-28] MEDS ORDERED: MORPHINE 4 MG/ML SYR ONE (09:50)
[2021-08-28] MEDS ORDERED: ONDANSETRON 4 MG/2 ML VIAL ONE (09:50)
[2021-08-28] MEDS ORDERED: POTASSIUM 25 MEQ EFFERV TAB ONE (09:50)
--- NOTE | 2021-08-28 09:50 | EDPHYS ---
Physician Documentation [facility] Name: Fawn Fleming Age: 66 yrs Sex: Female : 1955 Arrival Date: 08/28/2021 Time: 07:13 Bed 19 Private MD: ED Physician Justus Kolb HPI: 08/28 07:33 This 66 yrs old Female presents to ER via EMS with complaints of Fall Injury. thomas 07:33 Details of fall: The patient fell from an upright position, while walking. Onset: The thomas symptoms/episode began/occurred just prior to arrival, last night. Associated injuries: The patient sustained injury to the head, left hand and left wrist, decreased range of motion, painful injury. Severity of symptoms: At their worst the symptoms were mild, in the emergency department the symptoms are unchanged. The patient has not experienced similar symptoms in the past. Historical: - Allergies: 07:18 Bactrim DS; ph 07:18 butorphanol tartrate; ph 07:18 Fentanyl; ph 07:18 Reglan; ph 07:18 Stadol; ph 07:18 sulfamethoxazole (bulk); ph 07:18 TRIMETHOPRIM; ph - Home Meds: 09:36 Dexilant 60 mg oral CpDB 1 cap once daily [Active]; sertraline 100 mg oral tab 2 tabs ph once daily [Active]; Isentress 400 mg oral tab 1 tab 2 times per day [Active]; buspirone 30 mg Oral tab 1 tab 2 times per day [Active]; FeroSul 325 mg (65 mg iron) oral tab 1 tab once daily [Active]; metoprolol tartrate 100 mg Oral tab 1 tab 2 times per day [Active]; clopidogrel 75 mg oral tab 1 tab once daily [Active]; Descovy 200-25 mg oral tab 1 tab once daily [Active]; bupropion HCl 150 mg Oral Tb24 1 tab once daily [Active]; furosemide 40 mg Oral tab 1 tab 2 times per day [Active]; famotidine 40 mg Oral tab 1 tab once daily [Active]; - PMHx: 07:18 Anxiety; Atrial Fib; Bipolar disorder; Chronic pain; COPD; esophageal varices; ph Hepatitis; HIV; Hypertension; Migraines; Panic Attacks; - PSHx: 07:18 Appendectomy; Bilateral shoulder repair; Cholecystectomy; hernia repair; R wrist SX; ph - Immunization history:: Client reports receiving the 2nd dose of the Covid vaccine. - Social history:: Smoking status: unknown Patient/guardian denies using alcohol, street drugs. - Immunization history: Last tetanus immunization: unknown. - Family history:: not pertinent. ROS: 07:33 Constitutional: Negative for fever, chills, and weight loss, Eyes: Negative for injury, thomas pain, redness, and discharge, ENT: Negative for injury, pain, and discharge, Neck: Negative for injury, pain, and swelling, Cardiovascular: Negative for chest pain, palpitations, and edema, Abdomen/GI: Negative for abdominal pain, nausea, vomiting, diarrhea, and constipation, Back: Negative for injury and pain, : Negative for injury, bleeding, discharge, and swelling, Skin: Negative for injury, rash, and discoloration, Neuro: Negative for headache, weakness, numbness, tingling, and seizure, Psych: Negative for depression, anxiety, suicide ideation, homicidal ideation, and hallucinations, Allergy/Immunology: Negative for hives, rash, and allergies, Endocrine: Negative for neck swelling, polydipsia, polyuria, polyphagia, and marked weight changes, Hematologic/Lymphatic: Negative for swollen nodes, abnormal bleeding, and unusual bruising. 07:33 Respiratory: Positive for cough, with no reported sputum, shortness of breath, at rest. wheezing, expiratory. 07:33 MS/extremity: Positive for laceration, pain, tenderness, of the left wrist and left hand. Exam: 07:33 Constitutional: This is a well developed, well nourished patient who is awake, alert, thomas and in no acute distress. Head/Face: Normocephalic, atraumatic. Eyes: Pupils equal round and reactive to light, extra-ocular motions intact. Lids and lashes normal. Conjunctiva and sclera are non-icteric and not injected. Cornea within normal limits. Periorbital areas with no swelling, redness, or edema. ENT: Nares patent. No nasal discharge, no septal abnormalities noted. Tympanic membranes are normal and external auditory canals are clear. Oropharynx with no redness, swelling, or masses, exudates, or evidence of obstruction, uvula midline. Mucous membranes moist. Neck: Trachea midline, no thyromegaly or masses palpated, and no cervical lymphadenopathy. Supple, full range of motion without nuchal rigidity, or vertebral point tenderness. No Meningismus. Chest/axilla: Normal chest wall appearance and motion. Nontender with no deformity. No lesions are appreciated. Cardiovascular: Regular rate and rhythm with a normal S1 and S2. No gallops, murmurs, or rubs. Normal PMI, no JVD. No pulse deficits. Abdomen/GI: Soft, non-tender, with normal bowel sounds. No distension or tympany. No guarding or rebound. No evidence of tenderness throughout. Back: No spinal tenderness. No costovertebral tenderness. Full range of motion. Female : Normal external genitalia. MS/ Extremity: Pulses equal, no cyanosis. Neurovascular intact. Full, normal range of motion. Neuro: Awake and alert, GCS 15, oriented to person, place, time, and situation. Cranial nerves II-XII grossly intact. Motor strength 5/5 in all extremities. Sensory grossly intact. Cerebellar exam normal. Normal gait. Psych: Awake, alert, with orientation to person, place and time. Behavior, mood, and affect are within normal limits. 07:33 Respiratory: the patient does not display signs of respiratory distress, Respirations: labored breathing, that is mild, Breath sounds: decreased breath sounds, that are mild, rhonchi, that are moderate, Respiratory rate: 22 08:01 ECG was reviewed by the Attending Physician. [facility] 09:35 ECG was reviewed by the Attending Physician. [facility] Vital Signs: 07:20 BP 175 / 120; Pulse 56; Resp 18; Temp 98.0; Pulse Ox 94% on R/A; Weight 95.25 kg; ph Height 5 ft. 3 in. (160.02 cm); 08:30 BP 192 / 108; Pulse 58; Resp 16; Pulse Ox 93% on R/A; ph 10:00 BP 189 / 104; Pulse 54; Resp 18; Pulse Ox 93% on R/A; ph 11:47 BP 159 / 92; Pulse 56; Resp 18; Pulse Ox 92% on R/A; ph 13:00 BP 161 / 98; Pulse 58; Resp 18; Pulse Ox 94% on R/A; ph 14:00 BP 159 / 89; Pulse 54; Resp 16; Pulse Ox 91% on R/A; ph 15:00 BP 176 / 102; Pulse 56; Resp 16; Temp 97.8; Pulse Ox 93% on R/A; ph 07:20 Body Mass Index 37.20 (95.25 kg, 160.02 cm) ph Crystal Coma Score: 07:22 Eye Response: spontaneous(4). Verbal Response: confused(4). Motor Response: obeys ph commands(6). Total: 14. 08:30 Eye Response: spontaneous(4). Verbal Response: confused(4). Motor Response: obeys ph commands(6). Total: 14. 10:00 Eye Response: spontaneous(4). Verbal Response: confused(4). Motor Response: obeys ph commands(6). Total: 14. 11:47 Eye Response: spontaneous(4). Verbal Response: confused(4). Motor Response: obeys ph commands(6). Total: 14. 13:00 Eye Response: spontaneous(4). Verbal Response: confused(4). Motor Response: obeys ph commands(6). Total: 14. 14:00 Eye Response: spontaneous(4). Verbal Response: confused(4). Motor Response: obeys ph commands(6). Total: 14. 15:00 Eye Response: spontaneous(4). Verbal Response: confused(4). Motor Response: obeys ph commands(6). Total: 14. Trauma Score (Adult): 07:22 Eye Response: spontaneous(1); Verbal Response: confused(1); Motor Response: obeys ph commands(2); Systolic BP: > 89 mm Hg(4); Respiratory Rate: 10 to 29 per min(4); Crystal Score: 14; Trauma Score: 12 08:30 Eye Response: spontaneous(1); Verbal Response: confused(1); Motor Response: obeys ph commands(2); Systolic BP: > 89 mm Hg(4); Respiratory Rate: 10 to 29 per min(4); [place] Score: 14; Trauma Score: 12 10:00 Eye Response: spontaneous(1); Verbal Response: confused(1); Motor Response: obeys ph commands(2); Systolic BP: > 89 mm Hg(4); Respiratory Rate: 10 to 29 per min(4); [place] Score: 14; Trauma Score: 12 11:47 Eye Response: spontaneous(1); Verbal Response: confused(1); Motor Response: obeys ph commands(2); Systolic BP: > 89 mm Hg(4); Respiratory Rate: 10 to 29 per min(4); Crystal Score: 14; Trauma Score: 12 13:00 Eye Response: spontaneous(1); Verbal Response: confused(1); Motor Response: obeys ph commands(2); Systolic BP: > 89 mm Hg(4); Respiratory Rate: 10 to 29 per min(4); [place] Score: 14; Trauma Score: 12 14:00 Eye Response: spontaneous(1); Verbal Response: confused(1); Motor Response: obeys ph commands(2); Systolic BP: > 89 mm Hg(4); Respiratory Rate: 10 to 29 per min(4); [place] Score: 14; Trauma Score: 12 15:00 Eye Response: spontaneous(1); Verbal Response: confused(1); Motor Response: obeys ph commands(2); Systolic BP: > 89 mm Hg(4); Respiratory Rate: 10 to 29 per min(4); [place] Score: 14; Trauma Score: 12 Procedures: 13:21 Central Line: the site was prepped with Betadine, in sterile fashion, a triple lumen thomas catheter was inserted, in the right in 1 attempts. placement was verified, by blood return, the site was dressed with using sterile technique, the patient tolerated the procedure, well. MDM: 07:19 Patient medically screened. thomas 07:36 Differential diagnosis: closed head injury, contusion, laceration, multiple trauma, thomas sprain, strain. Data reviewed: vital signs, nurses notes, lab test result(s), EKG, radiologic studies, CT scan, plain films. Data interpreted: secured entrance monitor: rate is 56 beats/min, rhythm is regular, Pulse oximetry: on room air is 94 %. Test interpretation: by ED physician or midlevel provider: ECG, plain radiologic studies. Counseling: I had a detailed discussion with the patient and/or guardian regarding: the historical points, exam findings, and any diagnostic results supporting the discharge/admit diagnosis, lab results, radiology results. 08/28 07:31 Order name: Basic Metabolic Panel; Complete Time: 09:43 thomas 08/28 07:31 Order name: CBC with Diff; Complete Time: 09:15 thomas 08/28 07:31 Order name: LFT's; Complete Time: 09:43 thomas 08/28 07:31 Order name: Magnesium; Complete Time: 09:43 thomas 08/28 07:31 Order name: NT PRO-BNP; Complete Time: 09:43 thomas 08/28 07:31 Order name: PT-INR; Complete Time: 09:15 thomas 08/28 07:31 Order name: Troponin HS; Complete Time: 09:43 thomas 08/28 07:33 Order name: SARS-COV-2 RT PCR (Document "Date of Onset" if Symptomatic) thomas 08/28 07:46 Order name: AMMONIA; Complete Time: 09:30 ph 08/28 08:36 Order name: Urine Dipstick-Ancillary; Complete Time: 08:39 EDMS 08/28 09:45 Order name: Phosphorus thomas 08/28 10:23 Order name: CBC with Automated Diff EDMS 08/28 10:23 Order name: CBC with Automated Diff EDMS 08/28 10:23 Order name: Comprehensive Metabolic Panel EDMS 08/28 07:31 Order name: XRAY Chest (1 view); Complete Time: 09:15 thomas 08/28 07:31 Order name: EKG; Complete Time: 07:32 thomas 08/28 07:31 Order name: Cardiac monitoring; Complete Time: 08:58 thomas 08/28 07:31 Order name: EKG - Nurse/Tech; Complete Time: 08:58 thomas 08/28 07:31 Order name: Hand Left 3 View XRAY; Complete Time: 09:15 thomas 08/28 07:31 Order name: Wrist Left (3 View) XRAY; Complete Time: 09:15 thomas 08/28 07:31 Order name: CT Head Brain wo Cont; Complete Time: 08:26 thomas 08/28 10:23 Order name: Heart Healthy EDMS 08/28 10:23 Order name: Comprehensive Metabolic Panel EDMS 08/28 17:46 Order name: Glucose, Ancillary Testing EDMS 08/28 07:31 Order name: IV Saline Lock; Complete Time: 08:58 thomas 08/28 07:31 Order name: Labs collected and sent; Complete Time: 08:58 thomas 08/28 07:31 Order name: O2 Per Protocol; Complete Time: 07:37 thomas 08/28 07:31 Order name: O2 Sat Monitoring; Complete Time: 07:37 thomas 08/28 07:33 Order name: Wound Care: wound care left hand, wrist, right elbow; Complete Time: 19:21 thomas 08/28 11:15 Order name: Central Line Kit; Complete Time: 12:21 thomas EC:35 Rate is 97 beats/min. Rhythm is regular. QRS [place] is Normal. [place] interval is normal. QRS thomas interval is normal. QT interval is normal. No Q waves. T waves are Normal. ST Segment is depressed in leads II, III, aVF, V3, V4, V5, V6. Administered Medications: 09:43 Not Given (Duplicate Order): NS 0.9% 1000 ml IV at 75 ml/hr continuous thomas 09:57 Drug: Potassium Effervescent Tablet 50 mEq Route: PO; ph 19:20 Follow up: Response: No adverse reaction ph 09:57 Drug: Zofran (Ondansetron) 4 mg Route: IVP; Site: right antecubital; ph 19:20 Follow up: Response: No adverse reaction ph 13:45 Drug: NS 0.9% with KCl 20 mEq/L 1000 ml Route: IV; Rate: 75 ml/hr; Site: right femoral; ph 15:30 Follow up: Response: No adverse reaction; IV Status: Infusion continued upon admission ph 13:45 Drug: morphine 4 mg Route: IVP; Site: right femoral; ph 14:30 Follow up: Response: No adverse reaction; Pain is decreased ph 14:20 Drug: Rocephin (cefTRIAXone) 1 grams Route: IV; Rate: per protocol; Site: right femoral;ph 14:50 Follow up: Response: No adverse reaction; IV Status: Completed infusion ph Disposition Summary: 08/28/21 09:50 Hospitalization Ordered Hospitalization Status: Observation thomas Provider: Liz Qureshi thomas Condition: Stable thomas Problem: new thomas Symptoms: have improved thomas Bed/Room Type: Standard thomas Location: Telemetry/MedSurg (observation)(08/28/21 16:47) dw Room Assignment: 228(08/28/21 16:47) dw Diagnosis - Repeated falls thomas - Weakness thomas - Dyspnea thomas - Hypokalemia thomas - Anemia, unspecified thomas - Altered mental status, unspecified thomas Forms: - Medication Reconciliation Form thomas - SBAR form thomas Signatures: Dispatcher [employer] Mary Sparks RN RN dw Anderson, Corey, MD MD cha Smirch, Shelby, RN RN ss Hall, Patricia, RN RN ph Corrections: (The following items were deleted from the chart) 09:38 08:01 Rate is 71 beats/min. Rhythm is regular. QRS [place] is Normal. [place] interval is thomas normal. QRS interval is normal. QT interval is normal. No Q waves. T waves are Normal. No ST changes noted. Clinical impression: Normal ECG and No evidence of ischemia. Interpreted by me. Reviewed by me. [facility] 14:24 09:50 Telemetry/MedSurg (observation) [facility] 14:24 09:50 [facility] 15:37 14:24 [facility] 16:47 14:24 [facility] ER HOLD ss dw 16:47 15:37 ERHOLD- ss dw
--- NOTE | 2021-08-28 09:50 | ER ---
Nurse's Notes [facility] Name: Fawn Fleming Age: 66 yrs Sex: Female : 1955 Arrival Date: 08/28/2021 Time: 07:13 Bed 19 Private MD: Diagnosis: Repeated falls;Weakness;Dyspnea;Hypokalemia;Anemia, unspecified;Altered mental status, unspecified Presentation: 08/28 07:14 Chief complaint: EMS states: Pt c/o fall while attempting to get into vehicle, ph reported that pt has been "confused and hallucinating" for a few days, also has had multiple falls, pt A\\T\\O to person and place but unable to tell EMS the date or current president, denies drug or alcohol use, hypertensive w/ systolic in 190s, abrasions to bilateral forearms, BGL 148. 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 Care prior to arrival: Bleeding of injury controlled. Injury dressed. Mechanism of Injury: Fall from standing position. Trauma event details: Injury occurred in the [facility], Injury occurred: at home. Injury occurred: August 28, 2021. 07:14 Acuity: BLAYNE 2 ph 07:14 Method Of Arrival: EMS: [facility] 07:20 Coronavirus screen: Vaccine status: Patient reports receiving the 2nd dose of the covid ph vaccine. Ebola Screen: No symptoms or risks identified at this time. Initial Sepsis Screen: Does the patient meet any 2 criteria? Altered Mental Status. Does the patient have a suspected source of infection? No. Patient's initial sepsis screen is negative. Risk Assessment: Do you want to hurt yourself or someone else? Patient reports no desire to harm self or others. Onset of symptoms was August 28, 2021. Trauma Activation: Not Applicable Physician: ED Physician; Name: ; Notified At: ; Arrived At: Physician: General Surgeon; Name: ; Notified At: ; Arrived At: Physician: Radiology; Name: ; Notified At: ; Arrived At: Physician: Respiratory; Name: ; Notified At: ; Arrived At: Physician: Lab; Name: ; Notified At: ; Arrived At: Historical: - Allergies: 07:18 Bactrim DS; ph 07:18 butorphanol tartrate; ph 07:18 Fentanyl; ph 07:18 Reglan; ph 07:18 Stadol; ph 07:18 sulfamethoxazole (bulk); ph 07:18 TRIMETHOPRIM; ph - Home Meds: 09:36 Dexilant 60 mg oral CpDB 1 cap once daily [Active]; sertraline 100 mg oral tab 2 tabs ph once daily [Active]; Isentress 400 mg oral tab 1 tab 2 times per day [Active]; buspirone 30 mg Oral tab 1 tab 2 times per day [Active]; FeroSul 325 mg (65 mg iron) oral tab 1 tab once daily [Active]; metoprolol tartrate 100 mg Oral tab 1 tab 2 times per day [Active]; clopidogrel 75 mg oral tab 1 tab once daily [Active]; Descovy 200-25 mg oral tab 1 tab once daily [Active]; bupropion HCl 150 mg Oral Tb24 1 tab once daily [Active]; furosemide 40 mg Oral tab 1 tab 2 times per day [Active]; famotidine 40 mg Oral tab 1 tab once daily [Active]; - PMHx: 07:18 Anxiety; Atrial Fib; Bipolar disorder; Chronic pain; COPD; esophageal varices; ph Hepatitis; HIV; Hypertension; Migraines; Panic Attacks; - PSHx: 07:18 Appendectomy; Bilateral shoulder repair; Cholecystectomy; hernia repair; R wrist SX; ph - Immunization history:: Client reports receiving the 2nd dose of the Covid vaccine. - Social history:: Smoking status: unknown Patient/guardian denies using alcohol, street drugs. - Immunization history: Last tetanus immunization: unknown. - Family history:: not pertinent. Screenin:19 Abuse screen: Denies threats or abuse. Denies injuries from another. Nutritional ph screening: No deficits noted. Tuberculosis screening: No symptoms or risk factors identified. Fall Risk Fall in past 12 months (25 points). No secondary diagnosis (0 pts). IV access (20 points). Ambulatory Aid- None/Bed Rest/Nurse Assist (0 pts). Gait- Weak (10 pts.). Mental Status- Overestimates/Forgets Limitations (15 pts.). Total Hauser Fall Scale indicates High Risk Score (45 or more points). Fall prevention measures have been instituted. Side Rails Up X 2 Placed Close to Nursing Station Frequent Obs/Assessments Occuring As available patient and family educated on Fall Prevention Program and Strategies. Primary Survey: 07:21 NO uncontrolled hemorrhage observed. A: The patient is alert. Airway: patent, No ph supplemental oxygen in use on arrival. Oral cavity: clear, Trachea midline. Breathing/Chest: Respiratory pattern: regular, Respiratory effort: spontaneous, unlabored, Chest inspection: symmetrical rise and fall of the chest. Circulation: Skin color: pink, Skin temperature: warm, dry. Disability Alert. Exposure/Environment: There is no evidence of uncontrolled external bleeding. Obvious injury(ies) are noted at this time: abrasions to bilateral forearms A warming method has been applied: A warm blanket has been provided to the patient. 15:00 Reassessment Airway Airway Patent Breathing/Chest Respiratory pattern Regular ph Respiratory effort Spontaneous Unlabored Breath sounds Clear Chest inspection Symmetrical Circulation Color Fair Plain Temperature Warm Dry Disability Alert. Assessment: 07:35 General: Appears in no apparent distress. Behavior is calm, cooperative, Denies fever, ph feeling ill. Pain: Complains of pain in right arm and left arm. Neuro: Level of Consciousness is awake, alert, obeys commands, Oriented to person, place, Reports dizziness, weakness. Cardiovascular: Capillary refill < 3 seconds in bilateral fingers Patient's skin is warm and dry. GI: No signs and/or symptoms were reported involving the gastrointestinal system. Derm: Skin is pink, warm \\T\\ dry. Musculoskeletal: Circulation, motion, and sensation intact. Range of motion: intact in all extremities. 07:37 Reassessment: Pt taken to CT via stretcher. ph 07:45 Derm: Skin is fragile, is thin, multiple skin tears, in different stages of healing ph noted to bilateral forearms and elbows, dark purple bruising also noted to bilateral forearms and hands. 08:58 Reassessment: Patient appears in no apparent distress at this time. Patient and/or ph family updated on plan of care and expected duration. Pain level reassessed. Pt awake and alert, oriented to person and place, noted to be sitting at the end of the stretcher, encouraged to remain in bed and not to attempt to get up on her own, instructed pt to scoot back in the stretcher, which she does, then scoots back to the end of the stretcher as soon as nurse leaves the room. 10:29 Reassessment: Dr Taylor at bedside to speak w/ pt. ph 11:47 Reassessment: Patient appears in no apparent distress at this time. Patient and/or family updated on plan of care and expected duration. Pain level reassessed. Pt asleep w/ equal and unlabored respirations. 13:10 Reassessment: Multiple attempts to obtain peripheral IVs unsuccessful, Dr Kolb at bedside for central line placement. 14:30 Reassessment: Patient appears in no apparent distress at this time. Patient and/or family updated on plan of care and expected duration. Pain level reassessed. Pt resting quietly w/ eyes closed, respirations even and unlabored. Vital Signs: 07:20 BP 175 / 120; Pulse 56; Resp 18; Temp 98.0; Pulse Ox 94% on R/A; Weight 95.25 kg; ph Height 5 ft. 3 in. (160.02 cm); 08:30 BP 192 / 108; Pulse 58; Resp 16; Pulse Ox 93% on R/A; ph 10:00 BP 189 / 104; Pulse 54; Resp 18; Pulse Ox 93% on R/A; ph 11:47 BP 159 / 92; Pulse 56; Resp 18; Pulse Ox 92% on R/A; ph 13:00 BP 161 / 98; Pulse 58; Resp 18; Pulse Ox 94% on R/A; ph 14:00 BP 159 / 89; Pulse 54; Resp 16; Pulse Ox 91% on R/A; ph 15:00 BP 176 / 102; Pulse 56; Resp 16; Temp 97.8; Pulse Ox 93% on R/A; ph 07:20 Body Mass Index 37.20 (95.25 kg, 160.02 cm) ph Palmetto Coma Score: 07:22 Eye Response: spontaneous(4). Verbal Response: confused(4). Motor Response: obeys ph commands(6). Total: 14. 08:30 Eye Response: spontaneous(4). Verbal Response: confused(4). Motor Response: obeys ph commands(6). Total: 14. 10:00 Eye Response: spontaneous(4). Verbal Response: confused(4). Motor Response: obeys ph commands(6). Total: 14. 11:47 Eye Response: spontaneous(4). Verbal Response: confused(4). Motor Response: obeys ph commands(6). Total: 14. 13:00 Eye Response: spontaneous(4). Verbal Response: confused(4). Motor Response: obeys ph commands(6). Total: 14. 14:00 Eye Response: spontaneous(4). Verbal Response: confused(4). Motor Response: obeys ph commands(6). Total: 14. 15:00 Eye Response: spontaneous(4). Verbal Response: confused(4). Motor Response: obeys ph commands(6). Total: 14. Trauma Score (Adult): 07:22 Eye Response: spontaneous(1); Verbal Response: confused(1); Motor Response: obeys ph commands(2); Systolic BP: > 89 mm Hg(4); Respiratory Rate: 10 to 29 per min(4); Crystal Score: 14; Trauma Score: 12 08:30 Eye Response: spontaneous(1); Verbal Response: confused(1); Motor Response: obeys ph commands(2); Systolic BP: > 89 mm Hg(4); Respiratory Rate: 10 to 29 per min(4); Palmetto Score: 14; Trauma Score: 12 10:00 Eye Response: spontaneous(1); Verbal Response: confused(1); Motor Response: obeys ph commands(2); Systolic BP: > 89 mm Hg(4); Respiratory Rate: 10 to 29 per min(4); Palmetto Score: 14; Trauma Score: 12 11:47 Eye Response: spontaneous(1); Verbal Response: confused(1); Motor Response: obeys ph commands(2); Systolic BP: > 89 mm Hg(4); Respiratory Rate: 10 to 29 per min(4); Crystal Score: 14; Trauma Score: 12 13:00 Eye Response: spontaneous(1); Verbal Response: confused(1); Motor Response: obeys ph commands(2); Systolic BP: > 89 mm Hg(4); Respiratory Rate: 10 to 29 per min(4); Crystal Score: 14; Trauma Score: 12 14:00 Eye Response: spontaneous(1); Verbal Response: confused(1); Motor Response: obeys ph commands(2); Systolic BP: > 89 mm Hg(4); Respiratory Rate: 10 to 29 per min(4); Palmetto Score: 14; Trauma Score: 12 15:00 Eye Response: spontaneous(1); Verbal Response: confused(1); Motor Response: obeys ph commands(2); Systolic BP: > 89 mm Hg(4); Respiratory Rate: 10 to 29 per min(4); Crystal Score: 14; Trauma Score: 12 ED Course: 07:13 Patient arrived in ED. ph 07:14 Solange Bennett, RN is Primary Nurse. ph 07:18 Triage completed. ph 07:19 Justus Kolb MD is Attending Physician. thomas 07:19 Arm band placed on Patient placed in an exam room, on a stretcher, on laboratory monitor, ph on pulse oximetry. 07:21 Patient maintains SpO2 saturation greater than 95% on room air. Thermoregulation: warm ph blanket given to patient. 07:22 Patient has correct armband on for positive identification. Bed in low position. Call ph light in reach. Side rails up X2. threat monitoring analyst on. Pulse ox on. NIBP on. 07:47 CT Head Brain wo Cont In Process Unspecified. EDMS 08:01 XRAY Chest (1 view) In Process Unspecified. EDMS 08:01 Hand Left 3 View XRAY In Process Unspecified. EDMS 08:01 Wrist Left (3 View) XRAY In Process Unspecified. EDMS 08:15 Missed attempt(s): 24 gauge in right hand. Bleeding controlled, band aid applied, ph catheter tip intact. Missed attempt(s): 22 gauge in right antecubital area. Bleeding controlled, band aid applied, catheter tip intact. 08:58 EKG done, by ED staff. eh3 09:47 Liz Qureshi MD is Hospitalizing Provider. thomas 13:15 Assisted provider with central line placement. Set up central line tray. Triple lumen ph line placed in right femoral. Line placed by Justus Kolb MD Placement verified by blood return, Dressed with Tegaderm, Blood was collected. Patient tolerated well. Before procedure, did Practitioner(s) obtain informed consent? Yes. Patient \\T\\ family education about procedure, CLABSI prevention and S/S of infection? Yes. Time-out/Briefing performed prior to start of procedure? Yes. Was handwashing/sanitizing done immediately prior to procedure? Yes. Was patient positioned to in a way to prevent air embolism? Yes. Was procedure site sterilized? Yes, with chlorhexidine. Was the site allowed to dry? Yes. Was local anesthetic and/or sedation utilized? Yes. During the procedure, did the Practitioner(s) maintain a sterile field? Yes. Were unused ports clamped during insertion? Yes. Was a 2nd qualified MD obtained after 3 unsuccessful insertion attempts? No. Was blood aspirated from each lumen? Yes. After the procedure, did the Practitioner(s) clean the site and apply a sterile dressing? Yes. Patient admitted, IV remains in place. 21:24 Primary Nurse role handed off by Solange Bennett RN cs9 Administered Medications: 09:43 Not Given (Duplicate Order): NS 0.9% 1000 ml IV at 75 ml/hr continuous thomas 09:57 Drug: Potassium Effervescent Tablet 50 mEq Route: PO; ph 19:20 Follow up: Response: No adverse reaction ph 09:57 Drug: Zofran (Ondansetron) 4 mg Route: IVP; Site: right antecubital; ph 19:20 Follow up: Response: No adverse reaction ph 13:45 Drug: NS 0.9% with KCl 20 mEq/L 1000 ml Route: IV; Rate: 75 ml/hr; Site: right femoral; ph 15:30 Follow up: Response: No adverse reaction; IV Status: Infusion continued upon admission ph 13:45 Drug: morphine 4 mg Route: IVP; Site: right femoral; ph 14:30 Follow up: Response: No adverse reaction; Pain is decreased ph 14:20 Drug: Rocephin (cefTRIAXone) 1 grams Route: IV; Rate: per protocol; Site: right femoral;ph 14:50 Follow up: Response: No adverse reaction; IV Status: Completed infusion ph Intake: 07:22 PO: 0ml; Total: 0ml. ph Output: 07:22 Urine: 0ml; Total: 0ml. ph Outcome: 09:50 Decision to Hospitalize by Provider. thomas 15:40 Admitted to ER Hold. Please see [facility] for further documentation. ph 15:40 Condition: stable 15:40 Instructed on the need for admit. 15:40 Patient's length of stay in the Emergency Department was greater than 2 hours. admitted ph to ER holdPatient's length of stay extended due to 21:28 Patient left the ED. 3 Signatures: Dispatcher [employer] EDJustus Perrin MD MD cha Hall, Patricia, RN RN Kayli Bernstein cs9 Shyann Moore RN RN ll3 Bennett, Yazmin eh3
[2021-08-28] MEDS ORDERED: NS KCL 20MEQ 1,000 ML IV ONE (09:51)
[2021-08-28] MEDS ORDERED: ACETAMINOPHEN 500 MG TAB PO PRN (10:18)
[2021-08-28] MEDS ORDERED: ONDANSETRON 4 MG/2 ML VIAL IV PRN (10:18)
[2021-08-28] MEDS ORDERED: CEFTRIAXONE 1000 MG/VIAL ONE (14:09)
[2021-08-28] MEDS ORDERED: NA CHLORIDE 0.9% 100 ML IV ONE (14:09)
--- NOTE | 2021-08-28 14:40 | P.HP ---
Certification for Inpatient Patient admitted to: Observation With expected LOS: <2 Midnights Patient will require the following post-hospital care: None Practitioner: I am a practitioner with admitting privileges, knowledge of patient current condition, hospital course, and medical plan of care. Services: Services provided to patient in accordance with Admission requirements found in Title 42 Section 412.3 of the Code of Federal Regulations Patient History Date of Service: 08/28/21 Reason for admission: s/p fall; weakness and fall History of Present Illness: Patient is a 66yo who was admitted to the hospital with weakness. Patient has been falling at home quite a bit. Patient's clinical symptoms are not improving. Patient has a history of HIV, but she states she takes her medications as prescribed. She decided to come into the emergency room. Labs showed hypokalemia. This was supplemented. It was not corrected. She has had a difficult time with IV access and had a central line placed. She will be admitted to the hospital for further treatment. Allergies fentanyl Allergy (Severe, Verified 03/31/21 11:11) Hives butorphanol tartrate [From Stadol] Allergy (Verified 03/31/21 11:11) confusion metoclopramide HCl [From Reglan] Allergy (Verified 03/31/21 11:11) Shortness of breath sulfamethoxazole [From Bactrim] Allergy (Verified 03/31/21 11:11) Hives/Rash trimethoprim [From Bactrim] Allergy (Verified 03/31/21 11:11) Hives/Rash Bactrim DS Allergy (Intermediate, Uncoded 03/31/21 11:11) Nausea/Vomiting Home Medications: Raltegravir Potassium [Isentress] 1 tab PO BID 02/28/12 Sertraline [Zoloft*] 2 tab PO DAILY 09/15/12 Metoprolol Tartrate 100 mg PO BID #60 tablet 02/03/20 Emtricitabine/Tenofov Alafenam [Descovy 200-25 mg Tablet] 1 tab PO DAILY 03/05/21 Amlodipine Besylate 1 tab PO DAILY 03/30/21 Buspirone HCl 30 mg PO BID 03/30/21 Dexlansoprazole [Dexilant] 60 mg PO DAILY 03/30/21 Docusate/Senna [Senokot-S*] 1 tab PO DAILY PRN 03/30/21 buPROPion HCL [Bupropion Xl] 1 tab PO DAILY 04/03/21 Ferrous Sulfate [Iron] 325 mg PO DAILY 30 Days #30 tablet 04/15/21 Albuterol Inhaler [Ventolin Inhaler*] 2 puff IH TID PRN #1 05/28/21 Amiodarone HCl [Cordarone*] 200 mg PO DAILY #30 tab 05/28/21 Mometasone/Formoterol [Dulera 200 Mcg/5 Mcg Inhaler] 2 puff IH BID #1 inhaler 05/28/21 Furosemide [Lasix] 40 mg PO BID #60 tablet 06/08/21 Benzonatate [Tessalon Perle*] 100 mg PO TID PRN #30 cap 06/20/21 Pantoprazole [Protonix Tab*] 40 mg PO BIDAC #60 tab 06/20/21 Lorazepam [Ativan] 1 tab PO BID 06/29/21 Albuterol Neb [Proventil 0.083% Neb Soln] 2.5 mg NEB [id number] PRN #60 amp 06/30/21 Guaifen W/Codeine Syrup [ROBITUSSIN A-C Syrup*] 5 ml PO Q12HP PRN #100 ml 06/30/21 Hydralazine HCl 50 mg PO TID #90 06/30/21 Hydrocodone 7.5/APAP 325 [[place] 7.5/325 mg*] 1 tab PO Q6H PRN #30 tab 06/30/21 Hydrocortisone Cream [Hydrocortisone 1% Cream*] 1 appl TOP TID PRN #1 tube 06/30/21 Ipratropium Neb [Atrovent*] 0.5 mg NEB [id number] PRN #60 amp 06/30/21 Nifedipine Xl [Procardia XL*] 60 mg PO DAILY #30 tab 06/30/21 predniSONE [Prednisone*] 20 mg PO BID #10 tab 06/30/21 Clopidogrel Bisulfate [Plavix] 75 mg PO DAILY 08/28/21 Famotidine 40 mg PO DAILY 08/28/21 Lisinopril [Zestril] 1 tab PO BID 08/28/21 - Past Medical/Surgical History Diabetic: No -: HIV diag ~ [address] Yohan Cardenas in [place] -: CAD -: Bipolar disorder Dr Krause in [place] -: Hypertension -: COPD on home O2 -: Tobacco abuse -: former Alcohol abuse -: Anemia likely of chronic disease -: Hyperlipidemia -: GERD with hiatal hernia -: Atrial fibrillation on chronic anticoagulation therapy -: Chronic diastolic CHF -: Appendectomy -: Cholecystectomy -: left and right shoulder rotator cuff repair -: Right foot repair -: Right shoulder replacement -: left shoulder rotated cuff -: hiatal hernia repair february 2021 -: right wrist Psychosocial/ Personal History: She lives at home. She is not . - Family History Father Medical History: Heart disease, Hypertension, Lung disease, GI disease, Diabetes, Stroke, Liver disease, Kidney disease Mother Medical History: Hypertension, Lung disease, GI disease, Blood disorders, Other (see notes) Notes: Epilepsy, chronic pain, leukemia - Social History Smoking Status: Former smoker Alcohol use: No CD- Drugs: No Caffeine use: Yes Review of Systems 10-point ROS is otherwise unremarkable Physical Examination - Vital Signs Temperature: 98 F Blood Pressure: 140/80 Pulse: 80 Respirations: 18 Pulse Ox (%): 95 - Physical Exam General: Alert, In no apparent distress, Oriented x3 HEENT: Atraumatic, PERRLA, Mucous membr. moist/pink, EOMI, Sclerae nonicteric Neck: Supple, 2+ carotid pulse no bruit, No LAD, Without JVD or thyroid abnormality Respiratory: Clear to auscultation bilaterally, Normal air movement Cardiovascular: Regular rate/rhythm, Normal S1 S2, No murmurs Gastrointestinal: Normal bowel sounds, Soft and benign, Non-distended, No tenderness Musculoskeletal: Other (Generalized weakness) Integumentary: No breakdown Neurological: Normal speech, Normal tone, Sensation intact, Cranial nerves 3-12 intact, Normal affect, Abnormal gait, Abnormal strength Lymphatics: No axilla or inguinal lymphadenopathy - Studies Laboratory Data (last 24 hrs) 08/28/21 08:54: Phosphorus 2.8 08/28/21 08:54: PT 12.3, INR 1.12 08/28/21 08:54: WBC 7.1, Hgb 10.1 L, Hct 31.9 L, Plt Count 208 08/28/21 08:54: Sodium 139, Potassium 2.7 L*, BUN 22 H, Creatinine 1.01, Glucose 114 H, Magnesium 2.1, Total Bilirubin 0.6, AST 46 H, ALT 33, Alkaline Phosphatase 98 Assessment & Plan - Problems (Diagnosis) (1) Generalized weakness Current Visit: Yes Status: Acute (2) Status post fall Current Visit: Yes Status: Acute (3) Hypokalemia Current Visit: No Status: Active (4) Acute on chronic diastolic heart failure Current Visit: No Status: Acute (5) Acute renal injury Onset Date: 06/30/17 Current Visit: No Status: Acute (6) COPD exacerbation Current Visit: No Status: Acute (7) GERD (gastroesophageal reflux disease) Current Visit: No Status: Acute (8) Gastritis Current Visit: No Status: Acute (9) Atrial fibrillation Current Visit: No Status: Chronic Qualifiers: (10) Bipolar disorder Onset Date: 05/26/15 Current Visit: No Status: Chronic Qualifiers: (11) CHF (congestive heart failure) Current Visit: No Status: Chronic Qualifiers: Heart failure type: unspecified Heart failure chronicity: chronic Qualified Code(s): I50.9 - Heart failure, unspecified (12) COPD (chronic obstructive pulmonary disease) Onset Date: 05/26/15 Current Visit: No Status: Chronic Qualifiers: (13) Depressive disorder Onset Date: 05/26/15 Current Visit: No Status: Chronic (14) Diabetes mellitus Current Visit: No Status: Chronic Qualifiers: Diabetes mellitus type: type 2 Diabetes mellitus fdc insulin use: unspecified 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 insulin use status Diabetes mellitus complication status: with kidney complications Diabetes mellitus complication detail: with chronic kidney disease Chronic kidney disease stage: stage 3 (moderate) Chronic kidney disease stage 3 subtype: stage 3a (GFR 45-59) Qualified Code(s): E11.22 - Type 2 diabetes mellitus with diabetic chronic kidney disease; N18.31 - Chronic kidney disease, stage 3a (15) H/O cardiac radiofrequency ablation Current Visit: No Status: Chronic (16) HIV positive Onset Date: 10/23/14 Current Visit: No Status: Chronic (17) Hepatitis C Onset Date: 10/06/16 Current Visit: No Status: Chronic Qualifiers: (18) Hypertension Onset Date: 05/26/15 Current Visit: No Status: Chronic Qualifiers: - Plan Plan: 1. Continue to correct potassium level 2. Gentle hydration 3. Physical therapy evaluation 4. Pain control 5. GI DVT prophylaxis Discharge Plan: Home Plan to discharge in: 48 Hours - Advance Directives Does patient have a Living Will: No Does patient have a Durable POA for Healthcare: No - Code Status/Comfort Care Code Status Assessed: Yes Code Status: Full Code Critical Care: No Time Spent Managing PTS Care (In Minutes): 45
[2021-08-28] MEDS: MORPHINE 2 MG/ML SYR IV PRN (20:26)
[2021-08-28] MEDS ORDERED: MORPHINE 2 MG/ML SYR ONE (20:27)
[2021-08-29] MEDS: NA CHLORIDE 0.9% 1,000 ML IV SCH ×3 (00:20→13:40)
[2021-08-29] MEDS: MORPHINE 2 MG/ML SYR IV PRN ×2 (00:46→21:08)
[2021-08-29 03:59] LABS: Absolute Lymphocytes (CBC) 0.9 K/uL (0.7-4.9); Hematocrit 30.7 % (36.0-45.0); Lymphocytes % 17.4 % (15.3-44.8); MPV 7.2 fL (7.6-11.3); RBC Red Blood Cell Count 4.07 M/uL (3.86-4.86)
[2021-08-29 04:10] VITALS: O2SAT 93
[2021-08-29 04:29] LABS: Albumin 3.1 g/dL (3.4-5.0); Bilirubin Total 0.5 mg/dL (0.2-1.0); Protein, Total 6.8 g/dL (6.4-8.2)
[2021-08-29 04:31] LABS: Potassium 2.7 mmol/L (3.5-5.1)
[2021-08-29] MEDS: KCL 20 MEQ/100 mL IVPB 20 MEQ/100 ML BAG IV SCH ×2 (05:25→09:25)
[2021-08-29] MEDS ORDERED: BENZONATATE 100 MG CAP PO PRN (09:49)
[2021-08-29] MEDS ORDERED: ALBUTEROL INHALER 60 PUFF/8 GM IH PRN (09:49)
[2021-08-29] MEDS ORDERED: DOCUSATE NA/SENNA CONC 1 TAB PO PRN (09:49)
[2021-08-29] MEDS ORDERED: HYDROCODONE/APAP 7.5/325 MG TAB PO PRN (09:49)
[2021-08-29] MEDS ORDERED: GUAIFENESIN/CODEINE 5ML UCUP PO PRN (09:49)
[2021-08-29] MEDS ORDERED: KCL 20 MEQ/100 mL IVPB 20 MEQ/100 ML BAG IV SCH (10:00)
[2021-08-29 13:43] VITALS: BMI 41.0
[2021-08-29] MEDS ORDERED: HOME MED 1 EA UNK (Hydralazine Hcl [Hydralazine Hcl] 50 MG Tablet) PO SCH (14:00)
[2021-08-29] MEDS ORDERED: cloNIDine HCL 0.1 MG TAB PO ONE (17:10)
--- NOTE | 2021-08-29 17:14 | P.PN ---
Subjective Date of Service: 08/29/21 Patient remains weak. Difficulty ambulating. Potassium is still being corrected. Remains at 2.7. Review of Systems 10-point ROS is otherwise unremarkable Physical Examination - Vital Signs Temperature: 97.6 F Blood Pressure: 209/93 Pulse: 65 Respirations: 18 Pulse Ox (%): 69 - Physical Exam General: Alert, In no apparent distress, Oriented x3 Respiratory: Clear to auscultation bilaterally, Normal air movement Cardiovascular: Regular rate/rhythm, Normal S1 S2 Gastrointestinal: Normal bowel sounds, Soft and benign, Non-distended, No tenderness Musculoskeletal: No clubbing, No swelling, No tenderness Integumentary: No rashes Neurological: Normal speech, Normal tone, Normal affect Lymphatics: No axilla or inguinal lymphadenopathy - Studies Laboratory Data (last 24 hrs) 08/29/21 03:22: Sodium 142, Potassium 2.7 L*, BUN 21 H, Creatinine 1.07, Glucose 103, Total Bilirubin 0.5, AST 41 H, ALT 28, Alkaline Phosphatase 86 08/29/21 03:22: WBC 5.4 D, Hgb 9.8 L, Hct 30.7 L, Plt Count 186 Medications List Reviewed: Yes Assessment & Plan - Problems (Diagnosis) (1) Generalized weakness Status: Acute (2) Status post fall Status: Acute (3) Hypokalemia Status: Active (4) Acute on chronic diastolic heart failure Status: Acute (5) Acute renal injury Onset Date: 06/30/17 Status: Acute (6) COPD exacerbation Status: Acute (7) GERD (gastroesophageal reflux disease) Status: Acute (8) Gastritis Status: Acute (9) Atrial fibrillation Status: Chronic Qualifiers: (10) Bipolar disorder Onset Date: 05/26/15 Status: Chronic Qualifiers: (11) CHF (congestive heart failure) Status: Acute Qualifiers: Heart failure type: unspecified Heart failure chronicity: chronic Qualified Code(s): I50.9 - Heart failure, unspecified (12) COPD (chronic obstructive pulmonary disease) Onset Date: 05/26/15 Status: Chronic Qualifiers: (13) Depressive disorder Onset Date: 05/26/15 Status: Chronic (14) Diabetes mellitus Status: Chronic Qualifiers: Diabetes mellitus type: type 2 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 Diabetes mellitus complication s tatus: with kidney complications Diabetes mellitus complication detail: with chronic kidney disease Chronic kidney disease stage: stage 3 (moderate) Chronic kidney disease stage 3 subtype: stage 3a (GFR 45-59) Qualified Code(s): E11.22 - Type 2 diabetes mellitus with diabetic chronic kidney disease; N18.31 - Chronic kidney disease, stage 3a (15) H/O cardiac radiofrequency ablation Status: Chronic (16) HIV positive Onset Date: 10/23/14 Status: Chronic (17) Hepatitis C Onset Date: 10/06/16 Status: Chronic Qualifiers: (18) Hypertension Onset Date: 05/26/15 Status: Chronic Qualifiers: - Plan Plan: 1. Continue to correct potassium level 2. Gentle hydration 3. Physical therapy evaluation 4. Pain control 5. GI DVT prophylaxis Discharge Plan: Home Plan to discharge in: Greater than 2 days - Advance Directives Does patient have a Living Will: No Does patient have a Durable POA for Healthcare: No - Code Status/Comfort Care Code Status: Full Code Critical Care: No Time Spent Managing PTS Care (In Minutes): 45
[2021-08-29] MEDS: PANTOPRAZOLE 40MG TABLET PO SCH (18:17)
[2021-08-29] MEDS: IPRATROPIUM BROM 0.5MG/2.5ML NEB PRN (19:45)
[2021-08-29] MEDS ORDERED: HOME MED 1 EA UNK (Lisinopril [Zestril] 40 MG Tablet) PO SCH (21:00)
[2021-08-29] MEDS ORDERED: POTASSIUM CL SA 10 MEQ TAB PO ONE (21:00)
[2021-08-29] MEDS: RALTEGRAVIR POTASSIUM 400 MG PO SCH (21:00)
[2021-08-29] MEDS: BUSPIRONE HCL 15 MG TABLET PO SCH (21:09)
[2021-08-29] MEDS: METOPROLOL TAR 50 MG TAB PO SCH (21:10)
[2021-08-29] MEDS: DULERA 200/5 (MOMETASONE/FORMOTEROL) INHALER IH SCH (21:10)
[2021-08-29] MEDS: predniSONE 20 MG TAB PO SCH (21:10)
[2021-08-29] MEDS: LORAZEPAM 1 MG TABLET PO SCH (23:09)
[2021-08-30] MEDS: MORPHINE 2 MG/ML SYR IV PRN ×2 (01:12→05:00)
[2021-08-30] MEDS: IPRATROPIUM BROM 0.5MG/2.5ML NEB PRN (01:40)
[2021-08-30 06:21] LABS: Potassium 3.7 mmol/L (3.5-5.1)
[2021-08-30] MEDS ORDERED: EMTRICITABINE PO SCH (09:00)
[2021-08-30] MEDS ORDERED: SERTRALINE HCL 100 MG TAB PO SCH (09:00)
[2021-08-30] MEDS: DULERA 200/5 (MOMETASONE/FORMOTEROL) INHALER IH SCH (09:00)
[2021-08-30] MEDS ORDERED: NIFEDIPINE XL 60 MG TABLET PO SCH (09:00)
[2021-08-30] MEDS ORDERED: FERROUS SULFATE 325 MG TAB PO SCH (09:00)
[2021-08-30] MEDS ORDERED: HOME MED 1 EA UNK (Dexlansoprazole [Dexilant] 30 MG Cap.Dr.Bp) PO SCH (09:00)
[2021-08-30] MEDS ORDERED: POTASSIUM CL SA 10 MEQ TAB PO ONE (09:00)
[2021-08-30] MEDS ORDERED: FAMOTIDINE 20 MG TAB PO SCH (09:00)
[2021-08-30] MEDS ORDERED: AMIODARONE HCL 200 MG TAB PO SCH (09:00)
[2021-08-30] MEDS: RALTEGRAVIR POTASSIUM 400 MG PO SCH (09:00)
[2021-08-30] MEDS ORDERED: BUPROPION HCL XL 150 MG TAB PO SCH (09:00)
[2021-08-30] MEDS ORDERED: TENOFOV ALAFENAM PO SCH (09:00)
[2021-08-30] MEDS ORDERED: AMLODIPINE 10 MG TAB PO SCH (09:00)
[2021-08-30] MEDS ORDERED: CLOPIDOGREL 75 MG TABLET PO SCH (09:00)
[2021-08-30] MEDS: PANTOPRAZOLE 40MG TABLET PO SCH ×2 (09:39→16:30)
[2021-08-30] MEDS: METOPROLOL TAR 50 MG TAB PO SCH (09:40)
[2021-08-30] MEDS: predniSONE 20 MG TAB PO SCH (09:42)
[2021-08-30] MEDS: BUSPIRONE HCL 15 MG TABLET PO SCH (09:44)
[2021-08-30] MEDS: LORAZEPAM 1 MG TABLET PO SCH (09:55)
[2021-08-30] MEDS ORDERED: cloNIDine HCL 0.1 MG TAB PO ONE (13:22)
--- NOTE | 2021-08-31 09:46 | EKG ---
Test Date: 2021-08-28 Test Time: 09:05:03 Jr. Systems Administrator: TAM[place] MEASUREMENT RESULTS: Intervals: Rate: 97 UT: 144 QRSD: 82 QT: 332 QTc: 421 [place]: P: UT: 144 QRS: 36 T: 253 INTERPRETIVE STATEMENTS: Normal sinus rhythm ST & T wave abnormality, consider inferolateral ischemia Abnormal ECG Compared to ECG 08/21/2021 15:54:17 Possible ischemia now present Sinus bradycardia no longer present Prolonged QT interval no longer present ST (T wave) deviation still present Electronically Signed On 08-31-21 09:36:38 CDT by Per Crane
[2021-09-09 13:20] VITALS: BP 209/93; TEMP 97.6
--- NOTE | 2021-09-09 13:22 | P.DS ---
Discharge Date: 08/30/21 Disposition: ROUTINE DISCHARGE Discharge Condition: GOOD Reason for Admission: s/p fall; weakness and fall - Problems (1) Generalized weakness Status: Acute (2) Status post fall Status: Acute (3) Hypokalemia Status: Active (4) Acute on chronic diastolic heart failure Status: Acute (5) Acute renal injury Onset Date: 06/30/17 Status: Acute (6) COPD exacerbation Status: Acute (7) GERD (gastroesophageal reflux disease) Status: Acute (8) Gastritis Status: Acute (9) Atrial fibrillation Status: Chronic Qualifiers: (10) Bipolar disorder Onset Date: 05/26/15 Status: Chronic Qualifiers: (11) CHF (congestive heart failure) Status: Acute Qualifiers: Heart failure type: unspecified Heart failure chronicity: chronic Qualified Code(s): I50.9 - Heart failure, unspecified (12) COPD (chronic obstructive pulmonary disease) Onset Date: 05/26/15 Status: Chronic Qualifiers: (13) Depressive disorder Onset Date: 05/26/15 Status: Chronic (14) Diabetes mellitus Status: Chronic Qualifiers: Diabetes mellitus type: type 2 Diabetes mellitus watermelon inspector insulin use: unspecified watermelon inspector insulin use status Diabetes mellitus complication status: with kidney complications Diabetes mellitus complication detail: with chronic kidney disease Chronic kidney disease stage: stage 3 (moderate) Chronic kidney disease stage 3 subtype: stage 3a (GFR 45-59) Qualified Code(s): E11.22 - Type 2 diabetes mellitus with diabetic chronic kidney disease; N18.31 - Chronic kidney disease, stage 3a (15) H/O cardiac radiofrequency ablation Status: Chronic (16) HIV positive Onset Date: 10/23/14 Status: Chronic (17) Hepatitis C Onset Date: 10/06/16 Status: Chronic Qualifiers: (18) Hypertension Onset Date: 05/26/15 Status: Chronic Qualifiers: Brief History of Present Illness: Patient is a 66yo who was admitted to the hospital with weakness. Patient has been falling at home quite a bit. Patient's clinical symptoms are not improving. Patient has a history of HIV, but she states she takes her medications as prescribed. She decided to come into the emergency room. Labs showed hypokalemia. This was supplemented. It was not corrected. She has had a difficult time with IV access and had a central line placed. She will be admitted to the hospital for further treatment. Hospital Course: Given IV fluids and then clinical symptoms improved. Patient strength is improved. Patient ambulating without difficulty. At this time, the patient is stable for discharge home. Vital Signs/Physical Exam: Temp Pulse Resp BP Pulse Ox 97.6 F 65 18 209/93 H 69 L 09/09/21 13:20 09/09/21 13:20 09/09/21 13:20 09/09/21 13:20 09/09/21 13:20 General: Alert, In no apparent distress, Oriented x3 Laboratory Data at Discharge: WBC 5.4 K/uL (4.3-10.9) D 08/29/21 03:22 Hgb 9.8 g/dL (12.0-15.0) L 08/29/21 03:22 Hct 30.7 % (36.0-45.0) L 08/29/21 03:22 Plt Count 186 K/uL (152-406) 08/29/21 03:22 PT 12.3 SECONDS (9.5-12.5) 08/28/21 08:54 INR 1.12 08/28/21 08:54 Sodium 141 mmol/L (136-145) 08/30/21 05:39 Potassium 3.7 mmol/L (3.5-5.1) 08/30/21 05:39 BUN 19 mg/dL (7-18) H 08/30/21 05:39 Creatinine 1.00 mg/dL (0.55-1.3) 08/30/21 05:39 Glucose 147 mg/dL (74-106) H 08/30/21 05:39 Phosphorus 2.8 mg/dL (2.5-4.9) 08/28/21 08:54 Magnesium 2.1 mg/dL (1.8-2.4) 08/28/21 08:54 Total Bilirubin 0.5 mg/dL (0.2-1.0) 08/29/21 03:22 AST 41 U/L (15-37) H 08/29/21 03:22 ALT 28 U/L (12-78) 08/29/21 03:22 Alkaline Phosphatase 86 U/L (45-117) 08/29/21 03:22 Home Medications: Raltegravir Potassium [Isentress] 1 tab PO BID 10/08/12 Sertraline [Zoloft*] 2 tab PO DAILY 09/15/12 Metoprolol Tartrate 100 mg PO BID #60 tablet 02/03/20 Emtricitabine/Tenofov Alafenam [Descovy 200-25 mg Tablet] 1 tab PO DAILY 03/05/21 Amlodipine Besylate 1 tab PO DAILY 03/30/21 Buspirone HCl 30 mg PO BID 03/30/21 Dexlansoprazole [Dexilant] 60 mg PO DAILY 03/30/21 Docusate/Senna [Senokot-S*] 1 tab PO DAILY PRN 03/30/21 buPROPion HCL [Bupropion Xl] 1 tab PO DAILY 04/03/21 Ferrous Sulfate [Iron] 325 mg PO DAILY 30 Days #30 tablet 04/15/21 Albuterol Inhaler [Ventolin Inhaler*] 2 puff IH TID PRN #1 05/28/21 Amiodarone HCl [Cordarone*] 200 mg PO DAILY #30 tab 05/28/21 Mometasone/Formoterol [Dulera 200 Mcg/5 Mcg Inhaler] 2 puff IH BID #1 inhaler 05/28/21 Furosemide [Lasix] 40 mg PO BID #60 tablet 06/08/21 Benzonatate [Tessalon Perle*] 100 mg PO TID PRN #30 cap 06/20/21 Pantoprazole [Protonix Tab*] 40 mg PO BIDAC #60 tab 06/20/21 Lorazepam [Ativan] 1 tab PO BID 06/29/21 Albuterol Neb [Proventil 0.083% Neb Soln] 2.5 mg NEB [id number] PRN #60 amp 06/30/21 Guaifen W/Codeine Syrup [ROBITUSSIN A-C Syrup*] 5 ml PO Q12HP PRN #100 ml 06/30/21 Hydralazine HCl 50 mg PO TID #90 06/30/21 Hydrocodone 7.5/APAP 325 [Max 7.5/325 mg*] 1 tab PO Q6H PRN #30 tab 06/30/21 Hydrocortisone Cream [Hydrocortisone 1% Cream*] 1 appl TOP TID PRN #1 tube 06/30/21 Ipratropium Neb [Atrovent*] 0.5 mg NEB [id number] PRN #60 amp 06/30/21 Nifedipine Xl [Procardia XL*] 60 mg PO DAILY #30 tab 06/30/21 predniSONE [Prednisone*] 20 mg PO BID #10 tab 06/30/21 Clopidogrel Bisulfate [Plavix*] 75 mg PO DAILY 08/28/21 Famotidine 40 mg PO DAILY 08/28/21 Lisinopril [Zestril] 1 tab PO BID 08/28/21 Physician Discharge Instructions: -DC IV and DC home -Follow-up with PCP in 1 to 2 weeks -Follow-up with Cardiology in 1 to 2 weeks -Please call Dr. Qureshi at [phone] if any questions regarding hospital stay -Please call nursing station at [phone] if any nursing or medication questions -Return to the emergency room if symptoms worsen Diet: AHA Activity: Fall precautions Followup: NONE,NONE [Primary Care Provider] - Time spent managing pt's care (in minutes): 35
== END 2021-08-30 18:11 | disposition home or self-care (01) | DRG 641 ==
LOC: ER 07:07 → ERHOLD 10:22 → 2ND 20:12 → OBSVTOIN 08-29 11:38
PROVIDERS: ADMIT Hospitalist; ATTEND Hospitalist
DX: E87.6 Hypokalemia (principal); B20 Human immunodeficiency virus [HIV] disease; I13.0 Hypertensive heart and chronic kidney disease with heart failure and stage 1 through stage 4 chronic kidney disease, or unspecified chronic kidney disease; I48.20 Chronic atrial fibrillation, unspecified; I50.32 Chronic diastolic (congestive) heart failure; I25.10 Atherosclerotic heart disease of native coronary artery without angina pectoris; F31.9 Bipolar disorder, unspecified; J44.9 Chronic obstructive pulmonary disease, unspecified; E78.5 Hyperlipidemia, unspecified; K21.9 Gastro-esophageal reflux disease without esophagitis; E11.22 Type 2 diabetes mellitus with diabetic chronic kidney disease; N18.31 Chronic kidney disease, stage 3a; Z86.19 Personal history of other infectious and parasitic diseases; Z79.899 Other long term (current) drug therapy; Z99.81 Dependence on supplemental oxygen; Z88.2 Allergy status to sulfonamides; Z79.01 Long term (current) use of anticoagulants; Z20.822 Contact with and (suspected) exposure to COVID-19
CPT/HCPCS: 36415; 70450; 71045; 80048; 80053; 80076; 81003; 82140; 82947; 83735; 83880; 84100; 84132; 84484; 85025; 85610; 93005; 94640; 97116; 97161; 99284; 99285; G0378; J2270; J2405; J3480; J3535; J7030; J7512; U0003

== ENCOUNTER 2021-08-31 11:50 | Emergency (ER) | payer OTHER ==
--- OUTSIDE RECORDS SUMMARY | 2021-08-31 12:00 | XMS REPORT | Continuity of Care Document ---
:1955 Author Organization [facility] t Address [address] [place] [address] Care Team Providers Name Role Phone Francisco Rahman Primary Care Physician Ashely Attending Clinician Unavailable PANKAJ Attending Clinician Unavailable RONALD Attending Clinician Unavailable [facility] Attending Clinician Unavailable Ronald DHILLON Attending Clinician Ap JENKINS Attending Clinician Doctor Unassigned, Name Attending Clinician Unavailable Prabhu SANCHEZ Attending Clinician Unavailable Luisana Maharaj NP Attending Clinician Yazmin JENKINS Attending Clinician Devin IT GENERALIST, R Attending Clinician Clark SANCHEZ Attending Clinician [...] Policy Number Effective Date Expiration Date S [facility] COMM[employer]ITY PLAN [id number] 2012 [employer]ON 00:00:00 [facility] DUAL [id number] 2020 COMP HMO D SNP 00:00:00 MEDICAID OF [place] [id number] 2020 00:00:00 Problems Condition Condition Condition Status Onset Resolution Last Treating Co mments Source Name Details Category Date Date Treatment Clinician Date Gastropare Gastropare Disease Active Overview : Methodi sis sis 4-[address] 00:00: [facility] note l might be different from the original. Added automatic ally from request for surgery [id number] Dysphagia Dysphagia Disease Active Overview: Methodi 4-[address] 00:00: [facility] 00 note l might be different from the original. Added automatic ally from request for surgery [id number] CCL / EPS Diagnosis Active 2020-10-15 Memoria PVI 3-30 17:07:00 l ABLATION CCL / 00:00: Marty W/ CARTO / EPS PVI 00 GA / T ABLATION W/ CARTO / GA / T Active 08/19/2020 [facility] Food Food Disease Active 2019-05 Methodi intoleranc [...] SV N/V [facility] hoxazole 1-25 Clear 00:00: [address] trimetho DA Active SV [facility] prim 1-25 Clear 00:00: Garcia 00 [facility] codeine DA Active SV N/V [facility] 1-25 Clear 00:00: Garcia [facility] Metoclop Propensi Active [place] ramide ty [...] father Diabetes [facility] Natural father Other - see comments [facility] Natural [facility] Natural father Hypertension [facility] Natural father Kidney disease Method [facility] Natural mother Cancer [facility] Social History Social Habit Start Date Stop Date Quantity Comments Source [facility] Alcohol Comment History [facility] Health Alcohol Std Drinks History [facility] Health Alcohol Binge Exposure to Not sure [facility] SARS-CoV-2 (event) [place] [facility] [place] History of tobacco Smoker Method [facility] use Hospital Alcohol intake 2021-07-14 2021-07-14 Ex-drinker [facility] 00:00:00 00:00:00 (finding) Cigarettes smoked 2020-12-08 2020-12-[address] current (pack per 00:00:00 00:00:00 Hospita l day) - Reported Cigarette 2020-12-08 2020-12-08 [facility] pack-years 00:00:00 00:00:00 Hospital Tobacco use and 2020-10-31 2020-10-31 Smokeless tobacco [facility] exposure 00:00:00 00:00:00 non-user History SDOH 2020-10-31 2020-10-31 1 [facility] Alcohol Frequency 00:00:00 00:00:00 Tobacco Comment 2015-02-14 2015-02-14 Smokes approx 1-2 Un iversity of 00:00:00 00:00:00 cigarettes per [place] [facility] day when she Branch smokes Sex [birth year] [facility] 00:00:00 00:00:00 Smoking Status Start Date Stop Date Source Former smoker 2020-12-08 00:00:00 2020-12-08 00:00:00 [facility] Medications Ordered Filled Start Stop Current Ordering Indication Dosage Frequency Signature Comments Components Source Medication Medication Date Date Medication? Clinician (SIG) Name Name raltegravir Yes [id number] 400mg Take 1 [facility] (ISENTRESS) 3-28 tablet by ity of 400 mg 00:00: mouth 2 [place] tablet 00 (two) Medical times Branch daily. raltegravir Yes [id number] 400mg Take 1 [facility] (ISENTRESS) 3-28 tablet by ity of 400 mg 00:00: mouth 2 [place] tablet 00 (two) Medical times Branch daily. LORazepam 1 Yes [id number] 1mg Take 1 Univers mg tablet 3-21 tablet by ity o f 00:00: mouth 3 [place] 00 (three) Medical times Branch daily as needed (anxiety). LORazepam 1 Yes [id number] 1mg Take 1 [facility] mg tablet 3-21 tablet by ity o f 00:00: mouth 3 [place] 00 (three) Medical times Branch daily as needed (anxiety). LORazepam 1 Yes [id number] 1mg Take 1 [facility] mg tablet 3-21 tablet by ity o f 00:00: mouth 3 [place] 00 (three) Medical times Branch daily as needed (anxiety). LORazepam 1 0 Yes [id number] 1mg Take 1 Univers mg tablet 3-21 tablet by ity o f 00:00: mouth 3 [place] 00 (three) Medical times Branch daily as needed (anxiety). raltegravir Yes 400mg Q.5D Take 400 U T (Isentress) 2-22 mg by Health 400 MG 09:09: mouth 2 tablet 52 (two) times a day. LORazepam 1 2021- No [id number] 1mg Take 1 Univers mg tablet 2-21 [...] 00 times a tablet day. buPROPion Yes [id number] 150mg Take 1 U nivers XL 1-24 tablet by ity of (WELLBUTRIN 00:00: mouth [place] XL) 150 mg 00 daily. Medical 24 hr Branch tablet busPIRone 0 Yes [id number] 30mg Take 1 Un matt 30 mg 1-24 tablet by ity of tablet 00:00: mouth 2 [place] 00 (two) Medical times Branch daily. SERTraline 0 Yes [id number] 200mg Take 2 Univers 100 mg 1-24 tablets by ity of tablet 00:00: mouth [place] 00 daily. Medical Branch buPROPion 0 Yes [id number] 150mg Take 1 U nivers XL 1-24 tablet by ity of (WELLBUTRIN 00:00: mouth [place] XL) 150 mg 00 daily. Medical 24 hr Branch tablet busPIRone 0 Yes [id number] 30mg Take 1 Un matt 30 mg 1-24 tablet by ity of tablet 00:00: mouth 2 [place] 00 (two) Medical times Branch daily. SERTraline Yes [id number] 200mg Take 2 Univers 100 mg 1-24 tablets by ity of tablet 00:00: mouth [place] 00 daily. Medical Branch buPROPion 0 Yes [id number] 150mg Take 1 U nivers XL 1-24 tablet by ity of (WELLBUTRIN 00:00: mouth [place] XL) 150 mg 00 daily. Medical 24 hr Branch tablet busPIRone Yes [id number] 30mg Take 1 Un matt 30 mg 1-24 tablet by ity of tablet 00:00: mouth 2 [place] 00 (two) Medical times Branch daily. SERTraline Yes [id number] 200mg Take 2 Univers 100 mg 1-24 tablets by ity of tablet 00:00: mouth [place] 00 daily. Medical Branch buPROPion Yes [id number] 150mg Take 1 U nivers XL 1-24 tablet by ity of (WELLBUTRIN 00:00: mouth [place] XL) 150 mg 00 daily. Medical 24 hr Branch tablet busPIRone Yes [id number] 30mg Take 1 Un matt 30 mg 1-24 tablet by ity of tablet 00:00: mouth 2 [place] 00 (two) Medical times Branch daily. SERTraline Yes [id number] 200mg Take 2 Univers 100 mg 1-24 tablets by ity of tablet 00:00: mouth [place] 00 daily. Medical Branch LORazepam 1 2021- No [id number] 1mg Take 1 Univers mg tablet 1-24 02-21 tablet by ity of 00:00: 00:00 mouth 3 [place] 00 :00 (three) Medical times Branch daily as needed (anxiety). emtricitabi Yes [id number] Take one Univers ne-tenofovi 1-20 po daily ity of r alafen 00:00: [place] (DESCOVY) 00 Medical tablet Branch emtricitabi 0 Yes [id number] Take one Univers ne-tenofovi 1-20 po daily ity of r alafen 00:00: [place] (DESCOVY) 00 Medical tablet Branch emtricitabi Yes [id number] Take one Univers ne-tenofovi 1-20 po daily ity of r alafen 00:00: [place] (DESCOVY) 00 Medical tablet Branch emtricitabi 2021-0 Yes [id number] Take one Univers ne-tenofovi 1-20 po daily ity of r alafen 00:00: [place] (DESCOVY) 00 Medical tablet Branch raltegravir 0 Yes [id number] 400mg Take 1 Univers (ISENTRESS) 1-12 tablet by ity of 400 mg 00:00: mouth 2 [place] tablet 00 (two) Medical times Branch daily. raltegravir 2021- No [id number] 400mg Take 1 Univers (ISENTRESS) 1-12 03-28 tablet by it y of 400 mg 00:00: 00:00 mouth 2 [place] tablet 00 :00 (two) Medical times Branch daily. raltegravir 2021- No [id number] 400mg Take 1 Univers (ISENTRESS) 1-12 -28 tablet by it y of 400 mg 00:00: 00:00 mouth 2 [place] tablet 00 :00 (two) Medical times Branch daily. metoprolol 0 Yes [id number] Take 1 [facility] tartrate 7-26 tablet Health (Lopressor) 00:00: (100 mg 100 MG 00 total) by tablet mouth 2 (two) times a day AND 0.5 tablets (50 mg total) every night. metoprolol 0 Yes [id number] Take 1 [place] tartrate 7-26 tablet Health [...] (affected area in groin) hydrALAZINE Yes 50mg Q.[id number] Take 50 mg Methodi (APRESOLINE 7-[id number] ) 50 MG [...] tablet 25 daily. l nystatin-tr 2020-0 Yes [id number] Apply to [facility] iainolone 7-06 area(s) 3 ity of cream 00:00: (three) [place] 00 times Medical daily. Branch nystatin-tr 2020-0 Yes [id number] Apply to [facility] iainolone 7-06 area(s) 3 ity of cream 00:00: (three) [place] 00 times Medical daily. Branch nystatin-tr 2020-0 Yes [id number] [facility] ity of cream 00:00: (three) [place] 00 times Medical daily. Branch nystatin-tr 2020-0 Yes [id number] [facility] ity of cream 00:00: (three) [place] 00 times Medical daily. Branch budesonide- 2020-0 2020- No 1{puff} QD Inhale 1 Methodi formoteroL 6-25 06-[address] (SYMBICORT) 19:37: 00:00 morning. H ospita 160-4.5 02 :00 l mcg/actuati on inhaler hydrALAZINE Yes [id number] 50mg Q.[id number] Take 1 [facility] (Apresoline 6-11 [id number] tablet (50 Health ) 50 MG 00:00: 3D mg total) tablet 00 by mouth 3 (three) times a day. hydrALAZINE Yes [id number] 50mg Q.[id number] Take 1 [facility] (Apresoline 6-11 [id number] tablet (50 Health ) 50 MG 00:00: [...] % 00:00: ointment 00 nystatin 2020- No [id number] Q.25D Take 5 mL Methodi (MYCOSTATIN 10-06 [...] ia 4-10 (Same as: l 14:00: Norvasc) [place] emtricitabi No Notes: Caesar lisa ne 200 MG / 4-10 (Same as: l tenofovir 14:00: Descovy) Herm ariel alafenamide 00 Non-formul 25 MG Oral nancy Tablet [Descovy] pantoprazol No Notes: Caesar lisa e 4-10 Tablet l 14:00: should not [place] 00 be chewed or crushed. (Same as: Protonix) Amiodarone No Notes: Memor ia 4-10 (Same as: l 14:00: Cordarone) [place] Amlodipine No Notes: Memor ia 4-10 (Same [...] Zoloft) Marty 00 pantoprazol No Notes: Caesar lsia e 4-10 Tablet l 14:00: should not [place] 00 be chewed or crushed. (Same as: [...] ia 4-10 (Same as: l 14:00: Zoloft) [place] 00 pantoprazol No Notes: Caesar lisa e 4-10 Tablet l 14:00: should not [place] 00 be chewed or crushed. (Same as: Protonix) Amiodarone No Notes: Memor ia 4-10 (Same as: l 14:00: Cordarone) [place] Amlodipine No Notes: Memor ia 4-10 (Same as: l 14:00: Norvasc) [place] 00 emtricitabi No Notes: Caesar lisa ne 200 MG / 4-10 (Same as: l tenofovir 14:00: Descovy) Herm ariel alafenamide 00 Non-formul 25 MG Oral nancy Tablet [Descovy] Sertraline No Notes: Memor ia 4-10 (Same as: l 14:00: Zoloft) [place] 00 pantoprazol No Notes: Caesar lisa e 4-10 Tablet l 14:00: should not [place] 00 be chewed or crushed. (Same as: Protonix) Amiodarone No Notes: Memor ia 4-10 (Same as: l 14:00: Cordarone) [place] 00 Amlodipine No Notes: Memor ia 4-10 (Same as: l 14:00: Norvasc) [place] 00 emtricitabi No Notes: Caesar lisa ne 200 MG / 4-10 (Same as: l tenofovir 14:00: Descovy) Herm ariel alafenamide 00 Non-formul 25 MG Oral nancy Tablet [Descovy] Sertraline No Notes: Memor ia 4-10 (Same as: l 14:00: Zoloft) [place] 00 pantoprazol No Notes: Caesar lisa e 4-10 Tablet l 14:00: should not [place] 00 be chewed or crushed. (Same as: Protonix) Amiodarone No Notes: Memor ia 4-10 (Same as: l 14:00: Cordarone) [place] 00 Amlodipine No Notes: Memor ia 4-10 (Same as: l 14:00: Norvasc) [place] 00 emtricitabi No Notes: Caesar lisa ne 200 MG / 4-10 (Same as: l tenofovir 14:00: Descovy) Herm ariel alafenamide 00 Non-formul 25 MG Oral nancy Tablet [Descovy] Sertraline No Notes: Memor ia 4-10 (Same as: l 14:00: Zoloft) Marty pantoprazol No Notes: Caesar lisa e 4-10 Tablet l 14:00: should not [place] 00 be chewed or crushed. (Same as: Protonix) Amiodarone No Notes: Memor ia 4-10 (Same as: l 14:00: Cordarone) [place] Amlodipine No Notes: Memor ia 4-10 (Same as: l 14:00: Norvasc) [place] 00 emtricitabi No Notes: Caesar lisa ne [...] ia 4-10 (Same as: l 14:00: Cordarone) [place] 00 Eliquis No Notes: Memoria 4-10 Same as: l 02:00: Eliquis [place] 00 Hydralazine No Notes: Caesar lisa Hydrochlori [...] 0.9% 4-10 (Same as: l 02:00: BD [place] 00 Posiflush) Eliquis No Notes: Memoria 4-10 Same as: l 02:00: Eliquis [place] Hydralazine No Notes: Caesar lisa Hydrochlori 4-10 (Same as: l de 50 MG 02:00: Apresoline Her mitchell Oral Tablet 00 ) May interfere w/enteral feedings Take With Food Sucralfate No Notes: May M emoria 4-10 interfere l 02:00: w/enteral [place] 00 feeds - Take 1 hr before [...] M emoria 4-10 interfere l 02:00: w/enteral [place] 00 feeds - Take 1 hr before [...] M emoria 4-10 interfere l 02:00: w/enteral [place] 00 feeds - Take 1 hr before or 2 hr after antacids, dairy pdt, meals & minerals - On empty stomach. For patients unable to swallow tablet, dissolve in 10mL - 30mL of water or juice and stir before giving. (Same As: Carafate) Saline No Notes: Memoria Flush 0.9% 4-10 (Same as: l 02:00: BD [place] 00 Posiflush) Eliquis No Notes: Memoria 4-10 Same as: l 02:00: Eliquis [place] Hydralazine No Notes: Caesar lisa Hydrochlori 4-10 (Same as: l de 50 MG 02:00: Apresoline Her mitchell Oral Tablet 00 ) May interfere w/enteral feedings Take With Food Sucralfate No Notes: May M emoria 4-10 interfere l 02:00: w/enteral [place] 00 feeds - Take 1 hr before [...] Memoria 4-10 Same as: l 02:00: Eliquis [place] Hydralazine No Notes: Caesar lisa Hydrochlori 4-10 [...] 0.9% 4-10 (Same as: l 02:00: BD [place] Posiflush) acetaminoph No Notes: Do M emoria en-codeine 4-10 not exceed l #3 00:12: 4gm/day of [place] acetaminop hen. (Same as: Tylenol with Codeine # 3) acetaminoph No Notes: Do M emoria en-codeine 4-10 not exceed l #3 00:12: 4gm/day of [place] acetaminop hen. (Same as: Tylenol with Codeine # 3) acetaminoph No Notes: Do M emoria en-codeine 4-10 not exceed l #3 00:12: 4gm/day of [place] acetaminop hen. (Same as: Tylenol with Codeine # 3) acetaminoph No Notes: Do M emoria en-codeine 4-10 not exceed l #3 00:12: 4gm/day of [place] acetaminop hen. (Same as: Tylenol with Codeine # 3) acetaminoph No Notes: Do M emoria en-codeine 4-10 not exceed l #3 00:12: 4gm/day of [place] acetaminop hen. (Same as: Tylenol with Codeine # 3) acetaminoph No Notes: Do M emoria en-codeine 4-10 not exceed l #3 00:12: 4gm/day of [place] 00 acetaminop hen. (Same as: Tylenol with [...] tartrate - tab, l 22:00: Route: PO, [place] 00 Drug form: TAB, BID, Dosing Weight [...] oria - tab, l 22:00: Route: PO, [place] Drug form: TAB, BID, Dosing Weight 97.273, [...] tab, l Tablet 22:00: Route: [facility] Drug form: TAB, BID, Dosing Weight [...] tartrate 4-09 tab, l 22:00: Route: PO, [place] 00 Drug form: TAB, BID, Dosing Weight [...] oria 4-09 tab, l 22:00: Route: PO, [place] Drug form: TAB, BID, Dosing Weight 97.273, kg, Start date: 08/29/20 17:00:00 CDT, Duration: 30 day, Stop date: 09/28/20 9:00:00 CDT metoprolol 1-0 No 100 mg, 1 Me moria tartrate 4-09 tab, l 22:00: Route: PO, [place] 00 Drug form: TAB, BID, Dosing Weight [...] oria 4-09 tab, l 22:00: Route: PO, [place] 00 Drug form: TAB, BID, Dosing Weight [...] Notes: Memoria 4-09 (Same l 17:07: as:MORPhin [place] 00 e Sulfate) Morphine No Notes: Memoria 4-09 (Same l 17:07: as:MORPhin [place] 00 e Sulfate) Morphine No Notes: Memoria 4-09 (Same l 17:07: as:MORPhin [place] 00 e Sulfate) Morphine No Notes: Memoria 4-09 (Same l 17:07: as:MORPhin [place] 00 e Sulfate) Morphine No Notes: Memoria 4-09 (Same l 17:07: as:MORPhin [place] 00 e Sulfate) Morphine No Notes: Memoria 4-09 (Same l 17:07: as:MORPhin [place] 00 e Sulfate) buPROPion No 150 mg, [...] 08-29 Drug form: l 15:40: INJ, ONCE, [place] 00 Stop date: 08/29/20 10:40:00 CDT pantoprazol 1-0 Yes 40 mg = 1 M emoria e 40 mg 4-09 tab, PO, l oral 15:27: Daily, # [place] enteric 00 30 tab, 0 coated Refill(s), tablet Pharmacy: [facility], 162.56, cm, 08/29/20 5:30:00 CDT, Height, 97.273, kg, 08/29/20 5:30:00 CDT, Weight pantoprazol 1-0 Yes 40 mg = 1 M emoria e 40 mg 4-09 tab, PO, l oral 15:27: Daily, # [place] enteric 00 30 tab, 0 coated Refill(s), tablet Pharmacy: [facility], 162.56, cm, 08/29/20 5:30:00 CDT, Height, 97.273, kg, 08/29/20 5:30:00 CDT, Weight pantoprazol 1-0 Yes 40 mg = 1 M emoria e 40 mg 4-09 tab, PO, l oral 15:27: Daily, # [place] enteric 00 30 tab, 0 coated Refill(s), tablet Pharmacy: [facility], 162.56, cm, 08/29/20 5:30:00 CDT, Height, 97.273, kg, 08/29/20 5:30:00 CDT, Weight pantoprazol 1-0 Yes 40 mg = 1 M emoria e 40 mg 4-09 tab, PO, l oral 15:27: Daily, # [place] enteric 00 30 tab, 0 coated Refill(s), tablet Pharmacy: [facility], 162.56, cm, 08/29/20 5:30:00 CDT, Height, 97.273, kg, 08/29/20 5:30:00 CDT, Weight pantoprazol 2021-0 Yes 40 mg = 1 M emoria e 40 mg 4-09 tab, PO, l oral 15:27: Daily, # [place] enteric 00 30 tab, 0 coated Refill(s), tablet [facility]: [facility], 162.56, cm, 08/29/20 5:30:00 CDT, Height, 97.273, kg, 08/29/20 5:30:00 CDT, Weight pantoprazol 2020-0 Yes 40 mg = 1 M emoria e 40 mg 4-09 tab, PO, l oral 15:27: Daily, # [place] enteric 00 30 tab, 0 coated Refill(s), tablet Pharm[facility]: [facility], 162.56, cm, 08/29/20 5:30:00 CDT, Height, 97.273, kg, 08/29/20 5:30:00 CDT, Weight pantoprazol 2020-0 Yes 40 mg = 1 M emoria e 40 mg 4-09 tab, PO, l oral 15:27: Daily, # [place] enteric 00 30 tab, 0 coated Refill(s), tablet [facility]: [facility], 162.56, cm, 08/29/20 5:30:00 CDT, Height, 97.273, kg, 08/29/20 5:30:00 CDT, Weight pantoprazol 2020-0 No 40 mg = 1 M emoria e 40 mg 4-09 tab, PO, l oral 15:26: Daily, # [place] enteric 00 30 tab, 0 coated Refill(s) tablet sucralfate 2020-0 Yes 1 gm = 1 Mem oria 1 g oral 4-09 tab, PO, l tablet 15:26: Q12H, # 28 Skylar nn 00 tab, 0 Refill(s), Pharmacy: [facility], 162.56, cm, 08/29/20 5:30:00 CDT, [...] [place]yl[place] nn 00 tab, 0 Refill(s), Pharmacy: [facility], 162.56, cm, 08/29/20 5:30:00 CDT, Height, 97.273, kg, 08/29/20 5:30:00 CDT, Weight pantoprazol 1-0 No 40 mg = 1 M emoria e 40 mg 4-09 tab, PO, l oral 15:26: Daily, # [place] enteric 00 30 tab, 0 coated Refill(s) tablet sucralfate 1-0 Yes 1 gm = 1 Mem oria 1 g oral 4-09 tab, PO, l tablet 15:26: Q12H, # 28 [place]yl[place] nn 00 tab, 0 Refill(s), Pharmacy: [facility], 162.56, cm, 08/29/20 5:30:00 CDT, [...] Skylar nn 00 tab, 0 Refill(s), Pharmacy: [facility], 162.56, cm, 08/29/20 5:30:00 CDT, Height, 97.273, kg, 08/29/20 5:30:00 CDT, Weight pantoprazol 1-0 No 40 mg = 1 M emoria e 40 mg 4-09 tab, PO, l oral 15:26: Daily, # [place] enteric 00 30 tab, 0 coated Refill(s) tablet sucralfate 1-0 Yes 1 gm = 1 Mem oria 1 g oral 4-09 tab, PO, l tablet 15:26: Q12H, # 28 Skyl[place] nn 00 tab, 0 Refill(s), Pharmacy: [facility], 162.56, cm, 08/29/20 5:30:00 CDT, Height, 97.273, kg, 08/29/20 5:30:00 CDT, Weight pantoprazol 2021-0 No 40 mg = 1 M emoria e 40 mg 4-09 tab, PO, l oral 15:26: Daily, # [place] enteric 00 30 tab, 0 coated Refill(s) tablet sucralfate Yes 1 gm = 1 Mem oria 1 g oral 4-09 tab, PO, l tablet 15:26: Q12H, # 28 Skylar nn 00 tab, 0 Refill(s), Pharmacy: [facility], 162.56, cm, 08/29/20 5:30:00 CDT, [...] Skyl[place] nn 00 tab, 0 Refill(s), Pharmacy: [facility], 162.56, cm, 08/29/20 5:30:00 CDT, Height, 97.273, kg, 08/29/20 5:30:00 CDT, Weight Saline No Notes: Memoria Flush 0.9% 4-09 (Same as: l 15:25: BD [place] 00 Posiflush) Lorazepam No Notes: Memori a 4-09 (Same as: l 15:25: Ativan) [place] 00 Saline No Notes: Memoria Flush 0.9% 4-09 (Same as: l 15:25: BD [place] 00 Posiflush) Lorazepam No Notes: Memori a 4-09 (Same as: l 15:25: Ativan) [place] 00 Saline No Notes: Memoria Flush 0.9% [...] Drug form: l mg + 15:00: INJ, [place] Dosing Weight 97.3, kg, Start date: 08/29/20 10:00:00 CDT, Stop date: 08/29/20 11:00:00 CDT Isuprel HCl No Route: IV, Memoria (ANES) 0.2 08-29 Drug form: l mg + 15:00: INJ, [place] 00 Dosing Weight 97.3, kg, Start date: 08/29/20 10:00:00 CDT, Stop date: 08/29/20 11:00:00 CDT Isuprel HCl 2020-0 No Route: IV, Memoria (ANES) 0.2 08-29 Drug form: l mg + 15:00: INJ, [place] 00 Dosing Weight 97.3, kg, Start date: [...] 08-29 Route: PO, l 14:01: Drug form: [place] 00 TAB, ONCE, Dosing Weight 97.273, kg, [...] lisa 08-29 Route: l 14:01: IVP, PRN, [place] 00 Dosing Weight 97.273, kg, PRN Benzodiaze [...] ia 08-29 Route: l 14:01: IVP, ONCE, [place] 00 Dosing Weight 97.273, kg, PRN Nausea & Vomiting, Start date: 08/29/20 9:01:00 CDT Labetalol 2021-0 No 10 mg, Memori a 08-29 Route: l 14:01: IVP, [place] 00 Q5Min, Dosing Weight 97.273, kg, PRN Elevated BP, Start date: 08/29/20 9:01:00 CDT, Duration: 5 doses or times, Stop date: Limited # of times Acetaminoph 2021-0 No 1,000 mg, M emoria en 08-29 Route: PO, l 14:01: Drug form: [place] 00 TAB, ONCE, Dosing Weight 97.273, kg, [...] oria ne 08-29 Route: l 14:01: IVP, [place] 00 Q5Min, Dosing Weight 97.273, kg, PRN [...] Memori a 08-29 Route: l 14:01: IVP, [place] 00 Q2MIN, Dosing Weight 97.273, kg, PRN Narcotic Reversal, Start date: 08/29/20 9:01:00 CDT, Duration: 8 doses or times, Stop date: Limited # of times Ondansetron 1-0 No 4 mg, Memor ia 08-29 Route: l 14:01: IVP, ONCE, [place] 00 Dosing Weight 97.273, kg, PRN Nausea & Vomiting, Start date: 08/29/20 9:01:00 CDT Labetalol 1-0 No 10 mg, Memori a 08-29 Route: l 14:01: IVP, [place] 00 Q5Min, Dosing Weight 97.273, kg, PRN Elevated BP, Start date: 08/29/20 9:01:00 CDT, Duration: 5 doses or times, Stop date: Limited # of times Acetaminoph 2021-0 No 1,000 mg, M emoria en 08-29 Route: PO, l 14:01: Drug form: [place] 00 TAB, ONCE, Dosing Weight 97.273, kg, [...] lisa 08-29 Route: l 14:01: IVP, PRN, [place] 00 Dosing Weight 97.273, kg, PRN Benzodiaze [...] oria ne 08-29 Route: l 14:01: IVP, [place] 00 Q5Min, Dosing Weight 97.273, kg, PRN [...] oria ne 08-29 Route: l 14:01: IVP, [place] 00 Q5Min, Dosing Weight 97.273, kg, PRN Pain Score 7-10, Start date: 08/29/20 9:01:00 CDT, Duration: 4 doses or times, Stop date: Limited # of times Flumazenil 2020-0 No 0.2 mg, Caesar lisa 08-29 Route: l 14:01: IVP, PRN, [place] 00 Dosing Weight 97.273, kg, PRN Benzodiaze pine Reversal, Initial dose, Start date: 08/29/20 9:01:00 CDT, Duration: 30 day, Stop date: 09/28/20 9:00:00 CDT Naloxone 1-0 No 0.4 mg, Memori a 08-29 Route: l 14:01: IVP, [place] 00 Q2MIN, Dosing Weight 97.273, kg, PRN Narcotic Reversal, Start date: 08/29/20 9:01:00 CDT, Duration: 8 doses or times, Stop date: Limited # of times Flumazenil 1-0 No 0.2 mg, Caesar lisa 08-29 Route: l 14:01: IVP, PRN, [place] 00 Dosing Weight 97.273, kg, PRN Benzodiaze [...] Memori a 08-29 Route: l 14:01: IVP, [place] 00 Q5Min, Dosing Weight 97.273, kg, PRN Elevated BP, Start date: 08/29/20 9:01:00 CDT, Duration: 5 doses or times, Stop date: Limited # of times Acetaminoph 2020-0 No 1,000 mg, M emoria en 08-29 Route: PO, l 14:01: Drug form: [place] 00 TAB, ONCE, Dosing Weight 97.273, kg, [...] oria ne 08-29 Route: l 14:01: IVP, [place] 00 Q5Min, Dosing Weight 97.273, kg, PRN Pain Score 7-10, Start date: 08/29/20 9:01:00 CDT, Duration: 4 doses or times, Stop date: Limited # of times Flumazenil 2021-0 No 0.2 mg, Caesar lisa 08-29 Route: l 14:01: IVP, PRN, [place] Dosing Weight 97.273, kg, PRN Benzodiaze pine [...] ia 08-29 Route: l 14:01: IVP, ONCE, [place] Dosing Weight 97.273, kg, PRN Nausea & Vomiting, Start date: 08/29/20 9:01:00 CDT Labetalol 2021-0 No 10 mg, Memori a 08-29 Route: l 14:01: IVP, [place] 00 Q5Min, Dosing Weight 97.273, kg, PRN Elevated BP, Start date: 08/29/20 9:01:00 CDT, Duration: 5 doses or times, Stop date: Limited # of times Acetaminoph 2021-0 No 1,000 mg, M emoria en 08-29 Route: PO, l 14:01: Drug form: [place] 00 TAB, ONCE, Dosing Weight 97.273, kg, [...] oria ne 08-29 Route: l 14:01: IVP, [place] 00 Q5Min, Dosing Weight 97.273, kg, PRN [...] Memori a 08-29 Route: l 14:01: IVP, [place] 00 Q2MIN, Dosing Weight 97.273, kg, PRN [...] Drug form: l 10 13:15: INJ, Start [place] microgram date: 08/29/20 8:15:00 CDT, Stop date: [...] Drug form: l 10 13:15: INJ, Start [place] microgram 00 date: 08/29/20 8:15:00 CDT, Stop date: 08/29/20 9:15:00 CDT norepinephr 2020-0 No Route: IV, Memoria ine (ANES) 08-29 Drug form: l 10 13:15: INJ, Start [place] microgram 00 date: 08/29/20 8:15:00 CDT, Stop date: 08/29/20 9:15:00 CDT norepinephr 2020-0 No Route: IV, Memoria ine (ANES) 08-29 Drug form: l 10 13:15: INJ, Start [place] microgram 00 date: 08/29/20 8:15:00 CDT, Stop date: 08/29/20 9:15:00 CDT norepinephr 2020-0 No Route: IV, Memoria ine (ANES) 4-09 Drug form: l 10 13:15: INJ, Start [place] microgram 00 date: 08/29/20 8:15:00 CDT, Stop date: 08/29/20 9:15:00 CDT Sodium 2021-0 No Route: IV, Memor ia Chloride 4-09 Total l 0.9% IV 12:30: Volume: [place] (ANES) 1000 00 1,000, mL Start date: 08/29/20 7:30:00 CDT, Stop date: 08/29/20 8:30:00 CDT Sodium 2021-0 No Route: IV, [facility] Chloride 4-09 Total l 0.9% IV 12:30: Volume: [place] (ANES) 1000 00 1,000, mL Start date: 08/29/20 7:30:00 CDT, Stop date: 08/29/20 8:30:00 CDT Sodium 2021-0 No Route: IV, Mem[facility] ia Chloride 4-09 Total l 0.9% IV 12:30: Volume: [place] (ANES) 1000 00 1,000, mL Start date: [...] 4-09 Total l 0.9% IV 12:30: Volume: [place] (ANES) 1000 00 1,000, mL Start date: [...] PO, l Hydrochlori 11:42: Q24H, # 30 [place] de 150 MG 00 tab, 0 Extended Refill(s) Release Tablet 24 HR Yes 150 mg = 1 Memori a Bupropion 4-09 tab, PO, l Hydrochlori 11:42: Q24H, # 30 [place] de 150 MG 00 tab, 0 Extended Refill(s) Release Tablet 24 HR Yes 150 mg = 1 Mem[facility] a Bupropion 4-09 tab, PO, l Hydrochlori 11:42: Q24H, # 30 [place] de 150 MG 00 tab, 0 Extended Refill(s) Release Tablet 24 HR Yes 150 mg = 1 Memori a Bupropion 4-09 tab, PO, l Hydrochlori 11:42: Q24H, # 30 [place] de 150 MG 00 tab, 0 Extended Refill(s) Release Tablet apixaban 2020-0 Yes 5 mg, PO, Me moria MG Oral 4- Q12H, tab, l Tablet 11:41: 0 [place] [Eliquis] 00 Refill(s), For Atrial Fibrilatio n [...] 4- Q12H, tab, l Tablet 11:41: 0 [place] [Eliquis] 00 Refill(s), For Atrial Fibrilatio n apixaban 5 0 Yes 5 mg, PO, Me moria MG Oral 4-09 Q12H, tab, l Tablet 11:41: 0 [place] [Eliquis] 00 Refill(s), For Atrial Fibrilatio n apixaban 5 2020-0 Yes 5 mg, PO, Me moria MG Oral 4-09 Q12H, tab, l Tablet 11:41: 0 [place] [Eliquis] 00 Refill(s), For Atrial Fibrilatio n [...] tab, PO, l tablet 11:38: Daily, # [place] 00 90 tab, 3 Refill(s) AMIODarone 0 Yes 200 mg = 1 M emoria 200 mg oral 4-09 tab, PO, l tablet 11:38: Daily, # [place] 00 90 tab, 3 Refill(s) AMIODarone 2020-0 Yes 200 mg = 1 M emoria 200 mg oral 4-09 tab, PO, l tablet 11:38: Daily, # [place] 00 90 tab, 3 Refill(s) AMIODarone 0 Yes 200 mg = 1 M emoria 200 mg oral 4-09 tab, PO, l tablet 11:38: Daily, # [place] 00 90 tab, 3 Refill(s) AMIODarone 2020-0 Yes 200 mg = 1 M emoria 200 mg oral 4-09 tab, PO, l tablet 11:38: Daily, # [place] 00 90 tab, 3 Refill(s) AMIODarone 2020-0 Yes 200 mg = 1 M emoria 200 mg oral 4-09 tab, PO, l tablet 11:38: Daily, # [place] 00 90 tab, 3 Refill(s) normal 2020-0 [...] awake for 30 days. budesonide 2019-05 No [id number] .5mg Q.5D Take 2 mL [facility] (PULMICORT) [...] day for 30 days. acetaminoph 2019-05 [place] [id number] 1{tbl} Q6H Take 1 [facility] en-codeine 07-04- [...] Immunizations Ordered Filled Immunization Date Status Comments [facility] e Immunization Name Name PEG COVID-19 2020-07-23 Completed [facility] MRNA VACCINATION 00:00:00 [facility] PFIZER COVID-19 2020-07-02 Completed [facility] MRNA VACCINATION 00:00:00 [facility] Influenza Virus 2017-03-08 Completed Universit [facility] Vaccine 00:00:00 [facility] Influenza Virus 2017-03-08 Completed Universit y of Vaccine 00:00:00 [facility] Influenza Virus 2017-03-08 Completed Universit y of Vaccine 00:00:00 [facility] Influenza Virus 2017-03-08 Completed Universit y of Vaccine 00:00:00 [facility] Influenza Virus 2014-01-30 Completed Universit y of Vaccine (3+ yrs) 00:00:00 [facility] dical Branch Pneumococcal 13 2014-01-30 Completed Universit y of Conjugate, PCV13 00:00:00 [facility] dical (Prevnar 13) Branch Influenza Virus 2014-01-30 Completed Universit y of Vaccine (3+ yrs) 00:00:00 [facility] dical Branch Pneumococcal 13 2014-01-30 Completed Universit y of Conjugate, PCV13 00:00:00 [facility] dical (Prevnar 13) Branch Influenza Virus 2014-01-30 Completed Universit y of Vaccine (3+ yrs) 00:00:00 [facility] dical Branch Pneumococcal 13 2014-01-30 Completed Universit y of Conjugate, PCV13 00:00:00 [facility] dical (Prevnar 13) Branch Influenza Virus 2014-01-30 Completed Universit y of Vaccine (3+ yrs) 00:00:00 [facility] dical Branch Pneumococcal 13 2014-01-30 Completed Universit y of Conjugate, PCV13 00:00:00 [facility] dical (Prevnar 13) Branch Pneumococcal 2012-02-16 Completed University o f Polysaccharide, 00:00:00 [facility] ical PPSV23 (PNEUMOVAX) Branch Influenza Virus 2012-02-16 Completed Universit y of Vaccine 00:00:00 [facility] PPD (TB) 2012-02-16 Completed University of 00:00:00 [facility] Pneumococcal 2012-02-16 Completed University o f Polysaccharide, 00:00:00 [facility] ical PPSV23 (PNEUMOVAX) Branch Influenza Virus 2012-02-16 Completed Universit y of Vaccine 00:00:00 [facility] PPD (TB) 2012-02-16 Completed University of 00:00:00 [facility] Pneumococcal 2012-02-16 Completed University o f Polysaccharide, 00:00:00 [place] [facility] PPSV23 (PNEUMOVAX) Branch Influenza Virus 2012-02-16 Completed Universit y of Vaccine 00:00:00 [facility] PPD (TB) 2012-02-16 Completed University of 00:00:00 [facility] Pneumococcal 2012-02-16 Completed University o f Polysaccharide, 00:00:00 [place] [facility] PPSV23 (PNEUMOVAX) Branch Influenza Virus 2012-02-16 Completed Universit y of Vaccine 00:00:00 [facility] PPD (TB) 2012-02-16 Completed University of 00:00:00 [facility] Hep B, Adol or Pedi 2011-09-01 Completed Unive rsity of Dosage 00:00:00 [facility] Hep B, Adol or Pedi 2011-09-01 Completed Unive rsity of Dosage 00:00:00 [facility] Hep B, Adol or Pedi 2011-09-01 Completed Unive rsity of Dosage 00:00:00 [facility] Hep B, Adol or Pedi 2011-09-01 Completed Unive rsity of Dosage 00:00:00 [facility] Hep B, Adol or Pedi 2011-03-17 Completed Unive rsity of Dosage 00:00:00 [facility] Hep B, Adol or Pedi 2011-03-17 Completed Unive rsity of Dosage 00:00:00 [facility] Hep B, Adol or Pedi 2011-03-17 Completed Unive rsity of Dosage 00:00:00 [facility] Hep B, Adol or Pedi 2011-03-17 Completed Unive rsity of Dosage 00:00:00 [facility] Influenza Virus 2011-02-10 Completed Universit y of Vaccine 00:00:00 [facility] Hep B, Adol or Pedi 2011-02-10 Completed Unive rsity of Dosage 00:00:00 [facility] Influenza Virus 2011-02-10 Completed Universit y of Vaccine 00:00:00 [facility] Hep B, Adol or Pedi 2011-02-10 Completed Unive rsity of Dosage 00:00:00 [facility] Influenza Virus 2011-02-10 Completed Universit y of Vaccine 00:00:00 [facility] Hep B, Adol or Pedi 2011-02-10 Completed Unive rsity of Dosage 00:00:00 [facility] Influenza Virus 2011-02-10 Completed Universit y of Vaccine 00:00:00 [facility] Hep B, Adol or Pedi 2011-02-10 Completed Unive rsity of Dosage 00:00:00 [facility] PPD (TB) 2010-11-18 Completed University of 00:00:00 [facility] TDAP (ADACEL) 2010-11-18 Completed University of VACCINE 00:00:00 [facility] PPD (TB) 2010-11-18 Completed University of 00:00:00 [facility] TDAP (ADACEL) 2010-11-18 Completed University of VACCINE 00:00:00 [facility] PPD (TB) 2010-11-18 Completed University of 00:00:00 [facility] TDAP (ADACEL) 2010-11-18 Completed University of VACCINE 00:00:00 [facility] PPD (TB) 2010-11-18 Completed University of 00:00:00 [facility] TDAP (ADACEL) 2010-11-18 Completed University of VACCINE 00:00:00 [facility] HEPATITIS A 2004-03-02 Completed University of 00:00:00 [facility] HEPATITIS A 2004-03-02 Completed University of 00:00:00 [facility] HEPATITIS A 2004-03-02 Completed University of 00:00:00 [facility] HEPATITIS A 2004-03-02 Completed University of 00:00:00 [facility] HEPATITIS A 2003-08-01 Completed University of 00:00:00 [facility] HEPATITIS A 2003-08-01 Completed University of 00:00:00 [facility] HEPATITIS A 2003-08-01 Completed University of 00:00:00 [facility] HEPATITIS A 2003-08-01 Completed University of 00:00:00 [facility] Pneumococcal 2001-10-04 Completed University o f Polysaccharide, 00:00:00 [place] [facility] PPSV23 (PNEUMOVAX) Branch PPD (TB) 2001-10-04 Completed University of 00:00:00 [facility] Pneumococcal 2001-10-04 Completed University o f Polysaccharide, 00:00:00 [place] [facility] PPSV23 (PNEUMOVAX) Branch PPD (TB) 2001-10-04 Completed University of 00:00:00 [facility] Pneumococcal 2001-10-04 Completed [place] o f Polysaccharide, 00:00:00 [place] [facility] PPSV23 (PNEUMOVAX) Branch PPD (TB) 2001-10-04 Completed University 00:00:00 [facility] Pneumococcal 2001-10-04 Completed [place] o f Polysaccharide, 00:00:00 [place] [facility] PPSV23 (PNEUMOVAX) Branch PPD (TB) 2001-10-04 Completed University 00:00:00 [facility] Vital Signs Vital Name Observation Time Observation Value Comments Source Systolic blood 2021-07-14 142 mm[Hg] [facility] pressure 15:18:00 Diastolic blood 2021-07-14 76 mm[Hg] [facility] pressure 15:18:00 Heart rate 2021-07-14 61 /min [facility] 15:18:00 Body height 2021-07-14 162.6 cm [facility] 15:18:00 Body weight 2021-07-14 94.802 kg [facility] 15:18:00 BMI 2021-07-14 35.87 kg/m2 [facility] 15:18:00 Systolic blood 2021-06-15 175 mm[Hg] [facility] 16:23:00 [facility] Diastolic blood 2021-06-15 104 mm[Hg] University o f pressure 16:23:00 [facility] Respiratory rate 2021-06-15 18 /min [facility] 16:18:00 [facility] Body height 2021-06-15 162.6 cm University 16:18:00 [facility] Body weight 2021-06-15 95.709 kg [facility] 16:18:00 [facility] BMI 2021-06-15 36.22 kg/m2 University 16:18:00 [facility] Oxygen saturation 2021-06-15 92 /min Didn't bring O2 Univers ity of in Arterial blood 16:18:00 machine with [facility] porfirio by Pulse oximetry [facility] Branch Heart rate 2021-01-28 56 /min [facility] 14:08:00 [facility] Systolic blood 2020-12-08 125 mm[Hg] [facility] pressure 15:48:00 [facility] Diastolic blood 2020-12-08 76 mm[Hg] [facility] pressure 15:48:00 Hospital Heart rate 2020-12-08 64 /min [facility] 15:48:00 Hospital Body temperature 2020-12-08 36.61 Amina [facility] 15:48:00 Hospital Respiratory rate 2020-12-08 17 /min [facility] 15:48:00 Hospital Body height 2020-12-08 162.6 cm [facility] 15:48:00 Hospital Body weight 2020-12-08 98.884 kg [facility] 15:48:00 Hospital BMI 2020-12-08 37.42 kg/m2 [facility] 15:48:00 Hospital Oxygen saturation 2020-12-08 97 /min [facility] in Arterial blood 15:48:00 Hospital by Pulse oximetry Body temperature 2020-12-02 36.83 Amina [facility] 14:14:00 [facility] Respitory Rate 2020-08-30 [facility] 13:00:00 Systolic (mm Hg) 2020-08-30 [facility] rmann 13:00:00 Diastolic (mm Hg) 2020-08-30 [facility] ermann 13:00:00 Systolic (mm Hg) 2020-08-30 [facility] rmann 11:00:00 Diastolic (mm Hg) 2020-08-30 [facility] ermann 11:00:00 Temperature Oral 2020-08-30 98.4 F [facility] rmann (F) 11:00:00 Respitory Rate 2020-08-30 [facility] 11:00:00 Respitory Rate 2020-08-30 [facility] 10:00:00 Systolic (mm Hg) 2020-08-30 [facility] rmann 10:00:00 Diastolic (mm Hg) 2020-08-30 [facility] ermann 10:00:00 Temperature Oral 2020-08-30 96.9 F [facility] rmann (F) 00:00:00 Temperature Oral 2020-08-29 97.6 F [facility] rmann (F) 11:26:00 Height 2020-08-29 162.56 cm [facility] 10:30:00 Weight 2020-08-29 [facility] Patel n 10:30:00 BMI Calculated 2020-08-29 [facility] 10:30:00 Procedures Procedure Date / Time Performing Source Performed Clinician ECG 12-LEAD [facility] Elan [id number] 2021-06-17 RAS[facility] [place] 00:00:00 [facility] CONSENT/REFUSAL FOR DIAGNOSIS AND 2021-06-15 Doctor [facility] 16:11:59 Unassigned, No [place] [facility] [place] ASSIGNMENT OF BENEFITS 2021-06-15 Doctor [facility] y of 16:11:40 Unassigned, No [facility] GASTROINTESTINAL PANEL 2020-12-08 Eliseo Arce 22:21:00 Hospital [...] THROMBOPLASTIN TIME (PTT) 2020-09-05 Ted Maharaj 15:04:00 [facility] PROTHROMBIN TIME WITH INR 2020-09-05 Carol Ann Method ist 15:04:00 [facility] HC COMPLETE BLD COUNT W/AUTO DIFF [...] 2020-08-13 Eliseo Arce [facility] 15:25:00 Hospital [id number] 2020-05-07 Provider, [facility] 00:00:00 [facility] BASIC METABOLIC PANEL 2020-05-02 Pau Ott 15:08:00 Hospital HC COMPLETE BLD COUNT W/AUTO DIFF 2020-05-02 Pau Ott 15:08:00 Hospital MAGNESIUM LEVEL 2020-05-02 Pau Ott 15:08:00 Hospital ESTIMATED GFR 2020-05-02 Eliseo Arce 15:08:00 Hospital CBC HEMOGRAM 2020-05-01 Idalmis Montilla [facility] 11:20:00 Hospital BASIC METABOLIC PANEL 2020-05-01 Idalmis Montilla 10:00:00 Hospital ESTIMATED GFR 2020-05-01 Idalmis Montillaist 10:00:00 Hospital HEPATIC FUNCTION PANEL 2020-05-01 Idalmis Montillais t 10:00:00 [facility] THYROID STIMULATING HORMONE 2020-05-01 Idalmis Montilla Met hodist 10:00:00 Hospital US DUPLEX VENOUS UPPER EXTREMITY 2020-04-30 Del Ceasar Jurado ee [facility] BILATERAL 23:36:00 Hospital XR CHEST 2 VW 2020-04-30 Pau Ott 22:18:36 [facility] MIDLINE INSERTION ATTEMPT - 2020-04-30 Foster Blesilda Me thodist UNSUCCESSFUL 17:14:34 Hospital XR ABDOMEN 1 VW PORTABLE 2020-04-[address] 15:45:00 [facility] ECG 12-LEAD 2020-04-30 Pau Ott 15:06:58 Hospital MD AN ELECTIVE ENDOTRACHEAL AIRWAY 2020-04-28 Carlee Malloy Reg grady [facility] 20:57:57 Hospital REPAIR, HIATAL HERNIA, 2020-04-28 Eliseo Arce LAPAROSCOPIC, ROBOT-ASSISTED 19:38:00 [facility] ESOPHAGOGASTRODUODENOSCOPY (EGD) 2020-04-28 Eliseo Arce 19:38:00 [facility] POC GLUCOSE 2020-04-28 Eliseo Arce 15:01:00 [facility] SURGICAL PATHOLOGY REQUEST 2020-04-28 Eliseo Arce Metho dist 14:27:00 Hospital BASIC METABOLIC PANEL 2020-04-28 Jignesh Gonzalezist 08:11:00 [facility] HC COMPLETE BLD COUNT W/AUTO DIFF 2020-04-28 Jignesh Gonzalezist 08:11:00 [facility] MAGNESIUM LEVEL 2020-04-28 Amirjoerarohini [facility]ai 08:11:00 [facility] PHOSPHORUS LEVEL 2020-04-28 Amirashmi [facility] 08:11:00 [facility] PROTHROMBIN TIME WITH INR 2020-04-28 Jignesh Gonzalez ist 08:11:00 [facility] PARTIAL THROMBOPLASTIN TIME (PTT) 2020-04-28 Jignesh Gonzalezist 08:11:00 [facility] ESTIMATED GFR 2020-04-28 Eliseo Arce 08:11:00 Hospital TYPE AND SCREEN 2020-04-28 Eliseo Arce 08:11:00 Hospital POC GLUCOSE 2020-04-28 Eliseo Arce 05:38:00 Hospital POC GLUCOSE 2020-04-28 Eliseo Arce 02:14:00 Hospital TTE COMPLETE, WO CONTRAST, W 2020-04-27 Nieves Hyde Mo thodist DOPPLER ([id number]) 21:00:00 Hospital POC GLUCOSE 2020-04-27 Eliseo Arce 18:30:00 Hospital BASIC METABOLIC PANEL 2020-04-27 Eliseo Arce 12:34:00 Hospital ESTIMATED GFR 2020-04-27 Eliseo Arce 12:34:00 Hospital POC GLUCOSE 2020-04-27 Eliseo Arce 03:18:00 Hospital ECG 12-LEAD 2020-04-27 Nieves Hydeist 02:24:31 Hospital COVID-19 QUALITATIVE RT-PCR 2020-04-26 Carlos Meth odist 21:44:00 [facility] HC COMPLETE BLD COUNT W/AUTO DIFF 2020-04-26 Jignesh Gonzalezist 09:05:00 [facility] BASIC METABOLIC PANEL 2020-04-26 Amirhardy [facility]ai 09:05:00 [facility] MAGNESIUM LEVEL 2020-04-26 Amirisaiosrarohini [facility] 09:05:00 [facility] PHOSPHORUS LEVEL 2020-04-26 Ted Gonzalez 09:05:00 [facility] CD 4 SUBSET 2020-04-26 Eliseo Arce [facility] 09:05:00 Hospital ESTIMATED GFR 2020-04-26 Eliseo Arce 09:05:00 Hospital MISCELLANEOUS REFERRAL TEST 2020-04-26 Eliseo Arce Meth odist 09:05:00 Hospital POTASSIUM LEVEL 2020-04-26 Eliseo Arce [facility] 03:04:00 Hospital HC COMPLETE BLD COUNT W/AUTO DIFF 2020-04-26 Carlos [facility] 00:51:00 [facility] BASIC METABOLIC PANEL 2020-04-26 Carlos [facility] 00:51:00 [facility] MAGNESIUM LEVEL 2020-04-26 Carlos [facility] 00:51:00 [facility] PHOSPHORUS LEVEL 2020-04-26 Carlos, [facility] 00:51:00 [facility] ESTIMATED GFR 2020-04-26 Eliseo Arce [facility] 00:51:00 Hospital FL ESOPHAGRAM DOUBLE CONTRAST 2020-04-25 Eliseo Arce [facility] 17:31:[address] CHEST WO CONTRAST ABDOMEN WO 2020-04-21, Yen-Te [facility] CONTRAST PELVIS WO CONTRAST 14:15:34 [facility] HC COMPLETE BLD COUNT W/AUTO DIFF 2020-04-21, Yen-Te [facility] 13:22:00 [facility] COMPREHENSIVE METABOLIC PANEL 2020-04-21, Yen-Te Me thodist 13:22:00 [facility] LIPASE LEVEL 2020-04-21, Yen-Te [facility] 13:22:00 [facility] LACTIC ACID LEVEL, SEPSIS - NOW 2020-04-21, Yen-Te [facility]ai AND REPEAT 2X EVERY 3 HOURS 13:22:00 [facility] ESTIMATED GFR 2020-04-21, Yen-Te [facility] 13:22:00 [facility] Plan of Care Planned Activity Planned Date Details Comments Source Future Scheduled Test DIABETES: RETINAL EYE [facility] EXAM [code = DIABETES: RETINAL EYE EXAM] Future Scheduled Test DIABETIC FOOT EXAM [facility] [code = DIABETIC FOOT EXAM] Future Scheduled Test Screening for malignant [facility] neoplasm of cervix (procedure) [code = 785916981] Future Scheduled Test BREAST CANCER SCREENING [facility] [code = BREAST CANCER SCREENING] Future Scheduled Test COLONOSCOPY SCREENING [facility] [code = COLONOSCOPY SCREENING] Future Scheduled Test SHINGLES VACCINES (#1) [facility] [code = SHINGLES VACCINES (#1)] Future Scheduled Test COVID-19 VACCINE (3 - [facility] Pfizer risk 3-dose series) [code = COVID-19 VACCINE (3 - Pfizer risk 3-dose series)] Future Scheduled Test INFLUENZA VACCINE [code [facility] = INFLUENZA VACCINE] Future Scheduled Test 65+ PNEUMOCOCCAL Me [facility] VACCINE (4 of 4) [code = 65+ PNEUMOCOCCAL VACCINE (4 of 4)] Encounters Start End Encounter Admission Attending Care Care Encounter Source Date/Time Date/Time Type Type Clinicians Facility Department ID 2021-08-03 Inpatient Ashely, HCACL OUTD [id number] [facility] 11:30:00 Mike [id number] [facility] 2021-07-14 Outpatient PANKAJ [facility] [id number] [place] 09:33:51 [facility] 2021-06-16 Inpatient RAUL Lund, HCACL OUTD [id number] [facility] 08:30:00 Mike [id number] [facility] 2021-06-15 Inpatient RAUL Lund, HCACL OUTD [id number] [facility] 10:30:00 Mike [id number] [facility] 2021-11-20 2021-11-20 Outpatient Marika [facility] [id number] Univers 08:30:00 08:30:00 SANTIAGO [id number] [facility] 2021-11-20 2021-11-20 Outpatient R [facility] [id number] Univers 08:30:00 08:30:00 SANTIAGO [facility] 2021-09-07 2021-09-07 Outpatient R [facility] [id number] Univers 08:00:00 08:00:00 [id number] [facility] 2021-08-21 2021-08-21 Outpatient R [facility] [id number] Univers 10:45:00 10:45:00 SANTIAGO [id number] [facility] 2021-08-21 2021-08-21 Outpatient R [facility] [id number] Univers 10:45:00 10:45:00 SANTIAGO [facility] 2021-08-21 2021-08-21 Water Inspector [facility] UNIVERSIT [id number] Univers 10:45:00 10:45:00 Visit Santiago Cardenas [facility] [id number] ity of CL[id number] [id number] [facility] [address] 2021-08-14 2021-08-14 Telephone [facility] [id number] Univers 00:00:00 00:00:00 [facility] [id number] i ty of [id number] [id number] [facility] [address] [place] 2021-08-13 2021-08-13 Telephone [facility] [id number] Univers 00:00:00 00:00:00 [facility] [id number] i ty of [id number] [id number] [place] [id number] [place] 2021-08-11 2021-08-11 Outpatient R [facility] [id number] Univers 08:00:00 08:00:00 SANTIAGO [id number] [facility] 2021-08-11 2021-08-11 Outpatient [facility] [id number] Univers 08:00:00 08:00:00 SANTIAGO [facility] 2021-08-05 2021-08-05 Outpatient RAUL ChaseWINTER vegaCL [id number] [facility] 05:24:00 05:24:00 Mike 31 [facility] 2021-08-05 2021-08-05 Outpatient WINTER Leal OUTD [id number] [facility] 05:24:00 05:24:00 Mike [id number] [facility] 2021-07-14 2021-07-14 Office KIMBERLEY Lira 6400 [id number] [place] 08:45:00 09:34:[address] [id number] Health [id number] 2021-07-09 2021-07-09 Telephone Maryjaneporay, UTP 6400 [id number] [place] 00:00:00 00:00:[address] [id number] Health [id number] 2021-06-17 2021-06-17 Inpatient RAUL Lund, HCACL INTE.02 [id number] [facility] 10:56:00 14:36:00 Mike [id number] [facility] 2021-06-17 2021-06-17 Inpatient RAUL Lund, HCACL INTE.02 [id number] [facility] 10:56:00 14:36:00 Mike 47 [facility] 2021-06-15 2021-06-15 Orders Doctor 1.2.840.6 [id number] 775 [facility] 00:00:00 00:00:00 Only Unassigned, 89477.1.1 ity of [place] 3.104.2.7 [place] .3.107348 Medica l .8 Branch 2021-06-15 2021-06-15 Travel 1.2.840.1 1.2.217.939 0807 7719 Univers 00:00:00 00:00:00 20738.1.1 350.1.13.10 ity of 3.104.2.7 4[place]2.7.3.698 [place] .3.096763 084.8 Medica l .8 Branch 2021-06-11 2021-06-11 Refill East, 1.2.840.5 [id number] 60777 185 Univers 00:00:00 00:00:00 Santiago 26061.1.1 ity of 3.104.2.7 [place] .3.097147 Medica l .8 Branch 2021-06-02 2021-06-02 Telephone East, 1.2.840.7 [id number] 903 07428 Univers 00:00:00 00:00:00 Santiago 34475.1.1 ity of 3.104.2.7 [place] .3.797591 Medica l .8 Branch 2021-05-29 2021-05-29 Telephone Ronald, 1.2.840.6 [id number] 902 56622 Univers 00:00:00 00:00:00 Santiago 02634.1.1 ity of 3.104.2.7 [place] .3.270036 Medica l .8 Branch 2021-01-19 2021-01-19 Telephone Prabhu, 1.2.840.1 [id number] 2100 750718 Methodi 00:00:00 00:00:[address] 3.430.2.7 Hospit a .3.188847 l .8 2020-12-12 2020-12-12 [facility] 6400 1.2.840.114 12 7615992 07:42:02 08:18:[address] 350.1.13.58 9.2.7.2.686 752.4446286 1 2020-12-09 2020-12-09 Telephone Carol Ann, 1.2.840.1 [id number] Methodi 00:00:00 00:00:00 Sarai Luisana 25540.1.1 316 s t 3.430.2.7 Hospit a .3.175384 l .8 2020-12-08 2020-12-08 [facility], 1.2.840.1 [id number] 2100 824699 Methodi 12:35:54 23:59:00 Encounter Ray 74788.1.[address] 3.430.2.7 Hospit a .3.333499 l .8 2020-12-08 2020-12-08 [facility], 1.2.840.1 [id number] 69439 38337 Methodi 17:20:50 17:25:[address] 3.430.2.7 Hospit a .3.708353 l .8 2020-12-08 2020-12-08 Office [facility], 1.2.840.1 [id number] 00003 46796 Methodi 09:55:34 11:39:56 Visit Ray 00803.1.[address] 3.430.2.7 Hospit a .3.292654 l .8 2020-12-08 2020-12-08 Travel 1.2.840.1 1.2.226.477 4644 644760 Methodi 00:00:00 00:00:[address] 3.430.2.7 0.2.7.3.698 Ho spita .3.383341 084.8 l .8 2020-12-02 2020-12-02 Water Inspector [facility] 1.2.840.114 8 [id number] 10:20:06 10:36:19 Visit HEALTH 350.1.13.10 [facility] 4.2.7.2.686 989.0301213 316 2020-11-25 2020-11-25 Office [facility] 1.2.840.114 917222 65 11:06:30 11:58:14 Visit Robbi R RN [facility] 350.1.13.10 [facility] 4.2.7.2.686 MATERNAL 251.4458571 & CHILD 107 [facility] 2020-11-25 2020-11-25 [facility] 1.2.028.318 6458 4592 00:00:00 00:00:00 [facility] 350.1.13.10 CLINICS 4.2.7.2.686 771.7269648 089 2020-11-25 2020-11-25 Telephone [facility] 1.2.072.134 3363 0821 00:00:00 00:00:00 Rosnda R RN [facility] 350.1.13.10 REGIONAL 4.2.7.2.686 MATERNAL 757.9553772 & CHILD 107 [facility] 2020-11-14 2020-11-14 Abstract Clark, 1.2.840.1 [id number] 00524 72586 Methodi 00:00:00 00:00:[address] 3.430.2.7 Hospit a .3.287465 l .8 2020-11-14 2020-11-14 Telephone Rodas, 1.2.840.1 [id number] 2099 360983 Methodi 00:00:00 00:00:[address] 3.430.2.7 Hospit a .3.817465 l .8 2020-11-07 2020-11-07 Telephone Diana, [facility] 6400 1.2.840.114 124 741622 00:00:00 00:00:[address] 350.1.13.58 9.2.7.2.686 327.9632640 1 2020-10-27 2020-10-27 Telephone Jeredimasa, 1.2.840.0 [id number] Methodi 00:00:00 00:00:[address] 3.430.2.7 Hospit a .3.736317 l .8 2020-10-24 2020-10-24 Telephone Rodas, 1.2.840.1 [id number] 2099 960769 Methodi 00:00:00 00:00:[address] 3.430.2.7 Hospit a .3.291789 l .8 2020-10-06 2020-10-12 Telemedici Yazmin, 1.2.840.1 [id number] 51073157 Methodi 15:26:54 00:08:46 ne Ray 74413.1.[address] 3.430.2.7 Hospit a .3.992207 l .8 2020-09-30 2020-09-30 Telephone Yazmin, 1.2.840.2 [id number] 21 [id number] Methodi 00:00:00 00:00:[address] 3.430.2.7 Hospit a .3.618358 l .8 2020-09-21 2020-09-21 Travel 1.2.840.1 1.2.568.401 6534 761272 Methodi 00:00:00 00:00:[address] 3.430.2.7 0.2.7.3.698 Ho spita .3.736901 084.8 l .8 2020-09-01 2020-09-09 Lab Ramiro Mitchell 1.2.840.1 [id number] 65451 27144 Methodi 10:13:59 01:05:[address] 3.430.2.7 Hospit a .3.523159 l .8 2020-09-06 2020-09-06 [facility] 1.2.840.1 [id number] 22148 08817 Methodi 17:42:30 23:59:[address] 3.430.2.7 Hospit a .3.877556 l .8 2020-09-06 2020-09-06 [facility], 1.2.840.1 [id number] 2099 303646 Methodi 16:50:00 17:41:00 Encounter Ray [address]25.1.[address] 3.430.2.7 Hospit a .3.585084 l .8 2020-09-05 2020-09-05 [facility], 1.2.840.1 [id number] 2099 075045 Methodi 09:17:00 19:45:00 Encounter Ray [address]36.1.[address] 3.430.2.7 Hospit a .3.640448 l .8 2020-09-05 2020-09-05 [facility] 1.2.840.1 [id number] 36087 90911 Methodi 11:30:00 13:15:[address] 3.430.2.7 Hospit a .3.315450 l .8 2020-09-05 2020-09-05 Anesthesia [facility], 1.2.840.1 [id number] 844 [id number] Methodi 11:27:00 12:20:00 Event Lynnettevalentinadarrellthi 70037.1.1 243 s t V. 3.430.2.7 Hospit a .3.924167 l .8 2020-09-05 2020-09-05 Travel 1.2.840.1 1.2.151.218 2984 444211 Methodi 00:00:00 00:00:[address] 3.430.2.7 0.2.7.3.698 Ho spita .3.123326 084.8 l .8 2020-09-04 2020-09-04 Telephone [facility], 1.2.840.1 [id number] Methodi 00:00:00 00:00:00 Sarai Corbin. 83569.1.1 762 s t 3.430.2.7 Hospit a .3.236273 l .8 2020-09-02 2020-09-02 Telephone [facility], 1.2.840.2 [id number] Methodi 00:00:00 00:00:00 Sarai Corbin. 83553.1.1 344 s t 3.430.2.7 Hospit a .3.868653 l .8 2020-09-01 2020-09-01 Office [facility], 1.2.840.1 [id number] 74400 98936 Methodi 08:42:53 09:50:51 Visit Ray 82991.1.[address] 3.430.2.7 Hospit a .3.280516 l .8 2020-09-01 2020-09-01 Telephone [facility], 1.2.840.3 [id number] 21 [id number] Methodi 00:00:00 00:00:[address] 3.430.2.7 Hospit a .3.822116 l .8 2020-09-01 2020-09-01 Travel 1.2.840.1 1.2.879.403 4619 287075 Methodi 00:00:00 00:00:[address] 3.430.2.7 0.2.7.3.698 Ho spita .3.653807 084.8 l .8 2020-08-29 2020-08-30 Bedded [facility] [id number] 275 [facility] 10:20:00 14:10:00 Outpatient r [place] 00 l [facility] 2020-08-29 2020-08-30 Outpatient [facility], [facility] 7500 [facility] 05:20:00 09:10:00 BEVERLY 2020-08-27 2020-08-27 [facility], 1.2.840.1 [id number] 2100 321420 Methodi 09:55:15 23:59:00 Encounter Ray [address]28.1.[address] 3.430.2.7 Hospit a .3.193368 l .8 2020-08-27 2020-08-27 Travel 1.2.840.1 1.2.904.878 6182 222352 Methodi 00:00:00 00:00:[address] 3.430.2.7 0.2.7.3.698 Ho spita .3.715701 084.8 l .8 2020-08-21 2020-08-21 Travel 1.2.840.1 1.2.307.606 3381 846530 Methodi 00:00:00 00:00:[address] 3.430.2.7 0.2.7.3.698 Ho spita .3.632733 084.8 l .8 2020-08-19 2020-08-19 Telephone Meli, 1.2.840.1 [id number] 946 5388100 Methodi 00:00:00 00:00:[address] 3.430.2.7 Hospit a .3.579845 l .8 2020-08-19 2020-08-19 Travel 1.2.840.1 1.2.391.430 2695 972460 Methodi 00:00:00 00:00:[address] 3.430.2.7 0.2.7.3.698 Ho spita .3.735256 084.8 l .8 2020-08-18 2020-08-18 Orders Carol Ann, 1.2.840.9 [id number] 2 [id number] Methodi 00:00:00 00:00:00 Only Sarai Lieberman 91473.1.1 410 s t 3.430.2.7 Hospit a .3.615751 l .8 2020-08-18 2020-08-18 Travel 1.2.840.1 1.2.689.270 1488 279298 Methodi 00:00:00 00:00:[address] 3.430.2.7 0.2.7.3.698 Ho spita .3.908047 084.8 l .8 2020-08-15 2020-08-15 Abstract Clark 1.2.840.1 [id number] 71775 98005 Methodi 00:00:00 00:00:[address] 3.430.2.7 Hospit a .3.880653 l .8 2020-07-02 2020-08-06 Clinical 1.2.840.1 [id number] 66522 Methodi 10:40:46 01:45:[address] 3.430.2.7 Hospit a .3.815584 l .8 2020-07-30 2020-07-30 Travel 1.2.840.1 1.2.130.013 6328 968056 Methodi 00:00:00 00:00:[address] 3.430.2.7 0.2.7.3.698 Ho spita .3.075353 084.8 l .8 2020-07-28 2020-07-28 Office Yazmin, 1.2.840.1 032404174 55180 Methodi 08:35:45 10:11:52 Visit Ray 32477.1.[address] 3.430.2.7 Hospit a .3.186792 l .8 2020-07-28 2020-07-28 Telephone Rodas, 1.2.840.1 [id number] 2100 302886 Methodi 00:00:00 00:00:[address] 3.430.2.7 Hospit a .3.995304 l .8 2020-07-28 2020-07-28 Travel 1.2.840.1 1.2.563.272 5478 914927 Methodi 00:00:00 00:00:[address] 3.430.2.7 0.2.7.3.698 Ho spita .3.465679 084.8 l .8 2020-07-25 2020-07-25 Telephone Carol Ann, 1.2.840.8 [id number] Methodi 00:00:00 00:00:00 Sarai Lieberman 80947.1.1 314 s t 3.430.2.7 Hospit a .3.156059 l .8 2020-07-25 2020-07-25 Travel 1.2.840.1 1.2.914.176 1912 378868 Methodi 00:00:00 00:00:[address] 3.430.2.7 0.2.7.3.698 Ho spita .3.269043 084.8 l .8 2020-07-23 2020-07-23 Clinical Tori, 1.2.840.1 585207380 13929 06231 Methodi 08:39:40 08:44:40 Support Hoang 83529.1.[address] P. 3.430.2.7 Hospit a .3.164592 l .8 2020-07-23 2020-07-23 Travel 1.2.840.1 1.2.539.240 1064 642308 Methodi 00:00:00 00:00:[address] 3.430.2.7 0.2.7.3.698 Ho spita .3.164287 084.8 l .8 2020-07-11 2020-07-11 Travel 1.2.840.1 1.2.886.222 6467 933150 Methodi 00:00:00 00:00:[address] 3.430.2.7 0.2.7.3.698 Ho spita .3.697293 084.8 l .8 2020-07-02 2020-07-02 Telephone [facility], 1.2.840.5 [id number] [id number] Methodi 00:00:00 00:00:[address] 3.430.2.7 Hospit a .3.618692 l .8 2020-07-02 2020-07-02 Travel 1.2.840.1 1.2.397.605 1816 530752 Methodi 00:00:00 00:00:[address] 3.430.2.7 0.2.7.3.698 Ho spita .3.688186 084.8 l .8 2020-06-23 2020-06-23 Office [facility], 1.2.840.1 [id number] 58749 38057 Methodi 09:36:17 11:00:44 Visit Ray 21140.1.[address] 3.430.2.7 Hospit a .3.606433 l .8 2020-06-23 2020-06-23 Telephone Rodas, 1.2.840.1 [id number] 2100 013269 Methodi 00:00:00 00:00:[address] 3.430.2.7 Hospit a .3.220307 l .8 2020-06-23 2020-06-23 Travel 1.2.840.1 1.2.668.675 6519 616536 Methodi 00:00:00 00:00:[address] 3.430.2.7 0.2.7.3.698 Ho spita .3.607921 084.8 l .8 2020-06-09 2020-06-09 Telephone [facility], 1.2.840.7 [id number] Methodi 00:00:00 00:00:[address] 3.430.2.7 Hospit a .3.568667 l .8 2020-06-06 2020-06-06 Refill Quinn, 1.2.840.1 [id number] 743487 9959 Methodi 00:00:00 00:00:00 Gabinocoral RodriguezChelsieKristenChelsie 72074.1.[address] 3.430.2.7 Hospit a .3.972249 l .8 2020-06-03 2020-06-03 Telephone [facility], 1.2.840.8 [id number] Methodi 00:00:00 00:00:[address] 3.430.2.7 Hospit a .3.604892 l .8 2020-06-02 2020-06-02 Telephone [facility], 1.2.840.0 [id number] Methodi 00:00:00 00:00:[address] 3.430.2.7 Hospit a .3.301979 l .8 2020-05-13 2020-05-13 Orders Provider, 1.2.840.1 258021132 2100 228791 Methodi 00:00:00 00:00:00 Only Historical 85462.1.1 108 s t 3.430.2.7 Hospit a .3.044300 l .8 2020-05-09 2020-05-09 Telephone [facility], 1.2.840.1 [id number] Methodi 00:00:00 00:00:00 Sarai Lieberman 36667.1.1 660 s t 3.430.2.7 Hospit a .3.905401 l .8 2020-05-09 2020-05-09 Telephone [facility], 1.2.840.9 [id number] 74926270 Methodi 00:00:00 00:00:[address] 3.430.2.7 Hospit a .3.040642 l .8 2020-05-08 2020-05-08 Telephone [facility], 1.2.840.3 [id number] Methodi 00:00:00 00:00:[address] 3.430.2.7 Hospit a .3.549577 l .8 2020-05-07 2020-05-07 Telephone [facility], 1.2.840.5 [id number] [id number] Methodi 00:00:00 00:00:[address] 3.430.2.7 Hospit a .3.704497 l .8 2020-05-05 2020-05-05 Telephone [facility], 1.2.840.1 [id number] Methodi 00:00:00 00:00:[address] 3.430.2.7 Hospit a .3.833125 l .8 2020-04-25 2020-05-03 [facility], 1.2.840.1 [id number] 2100 621610 Methodi 17:33:00 13:39:00 Encounter Ray [address]4550.1.[address] 3.430.2.7 Hospit a .3.325324 l .8 2020-04-28 2020-04-28 Anesthesia Tomas Pinon 1.2.840.1 [id number] Methodi 13:38:00 19:40:00 Event Justine Catalan 22343.1.[address] 3.430.2.7 Hospit a .3.405948 l .8 2020-04-28 2020-04-28 Surgery [facility] 1.2.840.1 [id number] 20401 25307 Methodi 13:00:00 17:10:[address] 3.430.2.7 Hospit a .3.279724 l .8 2020-04-25 2020-04-25 [facility], 1.2.840.1 [id number] 2100 717779 Methodi 10:00:00 17:32:00 Encounter Ray [address].1.[address] 3.430.2.7 Hospit a .3.167556 l .8 2020-04-25 2020-04-25 Office Yazmin, 1.2.840.1 555909460 91030 11869 Methodi 11:43:50 13:44:26 Visit Ray 33532.1.[address] 3.430.2.7 Hospit a .3.645504 l .8 2020-04-25 2020-04-25 Travel 1.2.840.1 1.2.170.523 9844 796441 Methodi 00:00:00 00:00:[address] 3.430.2.7 0.2.7.3.698 Ho spita .3.262831 084.8 l .8 2020-04-24 2020-04-24 [facility], 1.2.840.1 [id number] 2 144422271 Methodi 00:00:00 00:00:00 Surgery Sarai Corbin. 18402.1.1 524 s t 3.430.2.7 Hospit a .3.369188 l .8 2020-04-22 2020-04-22 Telephone Meli, 1.2.840.1 [id number] 483 8080362 Methodi 00:00:00 00:00:[address] 3.430.2.7 Hospit a .3.982462 l .8 2020-04-22 2020-04-22 Travel 1.2.840.1 1.2.235.942 5633 509667 Methodi 00:00:00 00:00:[address] 3.430.2.7 0.2.7.3.698 Ho spita .3.459118 084.8 l .8 2020-04-21 2020-04-21 Emergency OniAmber 1.2.840.1 262508212 2 811621224 Methodi 06:51:00 10:43:[address] 3.430.2.7 Hospit a .3.016013 l .8 2020-04-21 2020-04-21 Orders Meisenbach, 1.2.840.1 [id number] [id number] Methodi 00:00:00 00:00:00 Only Sarai Corbin. 63846.1.1 550 s t 3.430.2.7 Hospit a .3.433534 l .8 2020-04-16 2020-04-16 Telephone Meisenbach, 1.2.840.1 [id number] [id number] Methodi 00:00:00 00:00:00 Sarai Corbin. 56292.1.1 673 s t 3.430.2.7 Hospit a .3.406527 l .8 2020-04-10 2020-04-10 Telephone Jeredimasmaria elena, 1.2.840.2 [id number] [id number] Methodi 00:00:00 00:00:[address] 3.430.2.7 Hospit a .3.351907 l .8 2020-04-07 2020-04-07 Telephone Nahum, 1.2.840.1 [id number] 2099 932033 Methodi 00:00:00 00:00:[address] 3.430.2.7 Hospit a .3.498483 l .8 2020-04-01 2020-04-01 Orders Provider, 1.2.840.1 [id number] 2099 247685 Methodi 00:00:00 00:00:00 Only Historical 84026.1.1 049 s t 3.430.2.7 Hospit a .3.958847 l .8 2020-03-31 2020-03-31 Travel 1.2.840.1 1.2.838.411 1266 107583 Methodi 00:00:00 00:00:[address] 3.430.2.7 0.2.7.3.698 Ho spita .3.766751 084.8 l .8 2020-03-27 2020-03-27 Telephone Paula, Min 1.2.840.3 4079297629 [id number] Methodi 00:00:00 00:00:[address] 3.430.2.7 Hospit a .3.272971 l .8 Results Test Description Test Time Test Comments Results Result Comments Source Novel Coronavirus 2019 Inhouse 2021-08-03 18:08:00 Test Item Value Reference Range Interpretation Comme nts Novel Coronavirus 2018 Negative Negative Posit bruno results are indicative of the Inhouse (test code = presenc e jwERZK-BaL-7 RNA, clinical COVNONPUI) correlation wit h patient [...] qualitative detection of nucleic acid s from lltAOCD-SnY-2 virus and diagn osis of SARS-CoV-2 virusinfection. It is an Emergency Use Authorization ( EUA) testauthorized by the U.[place]. FDA. BASIC METABOLIC [id number] 09:37:00 Test Item Value Reference Range Interpretation [...] = 9.0 mg/dL 8.0-10.5 N CA) PROTHROMBIN [id number] 09:32:00 Test Item Value Reference Range Interpretation [...] o prevent recurre nt infarct). 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 - XR CHEST 1 [id number] 00:00:00 [facility] 1955 Sex: F FAX: Lele Olivera DO [phone] [place]: St: ADM FAX: Jean Paul Scales [phone] FAX: Bahman Chopra [phone] Name: LIO WATTS [facility] : 1955 Age/S: 66/F [address] [place] [address] Unit #: [id number] Loc: [place] [address] Phys: Bahman Chopra [facility] Acct: [id number] Dis Date: Status:ADM IN PHONE #: [phone] Exam Date: 06/17/2021 1320 FAX #: [phone] Reason: WATCHMAN EXAMS: CPT CODE: [id number] XR CHEST 1 V 67426 PROCEDURE INFORMATION: Exam: XR Chest Examdate and [...] failure/volume loading. 2. Subsegmental atelectasis bilateral. at 1331 Reported and signed by: Lambert Vega M.D. CC: Lele Rahman DO; Mike Lund MD; Bahman Chopra Technologist: RT Taylor(R) Trnscrd Date/Time/By: 06/17/2021 (4212) : By: Susanna Orig Print D/T: S: 06/17/2021 (4352) PAGE 1 Signed ReportCOVID 19 Asymptomatic IH [id number] 12:29:00 Test Item Value Reference Range Interpretation [...] high or waivedcomplexit y tests. BASIC METABOLIC [id number] 11:37:00 Test Item Value Reference Range Interpretation [...] code = 9.0 mg/dL 8.0-10.5 N CA) [id number] 11:37:00 Test Item Value Reference Range Interpretation Comments PREALBUMIN (test code = PREALB) 24.3 mg/dL 16.0-40.0 N PROTHROMBIN [id number] 11:03:00 Test Item Value Reference Range Interpretation [...] o prevent recurre nt infarct). CBC W/AUTO [id number] 10:59:00 Test Item Value Reference Range Interpretation [...] 0.0-0.1 N NRBC#) - XR CHEST 2 [id number] 00:00:00 [facility] 1955 Sex: F FAX: Lele Olivera DO [phone] [place]: St: PRE FAX: Jean Paul Scales MD [phone] Name: LIO WATTS [facility] : 1955 Age/S: 66/F [address] [place] [address] Blvd Unit #: [id number] Loc: [place] [address] Phys: [facility] [id number] Dis Date: Status: PRE SDC PHONE #: [phone] Exam Date: 06/16/2021 1120 FAX #: [phone] Reason: PREOP EXAMS: CPT CODE: [id number] XR CHEST 2 V 84262 PROCEDURE INFORMATION: Exam: XR Chest Exam date [...] Andree(R) Trnscrd Date/Time/By: 06/16/2021 (1130) : By: [email or web address] Orig Print D/T: S: 06/16/2021 (1738) PAGE 1 Signed ReportGastrointestinal [id number] 04:35:05 Test Item Value Reference Interpretation Comments [...] Rotavirus PCR (test Not Detected code = 0894415) Salmonella PCR (test Not Detected code = [...] PCR Not Detected (test code = 7124) [facility] [id number] 19:17:40EXAMINATION: XR ABDOMEN 1 VW CLINICAL HISTORY: [...] clips are noted.[id number] [place] [facility] [id number] 19:41:02EXAMINATION: OR FL < 1 HOUR C-arm fluoroscopy was requested in OR. Location: [facility] OR room 6 Procedure: EGD WITH [...] was requested in OR. Location: [facility] OR room 6 Procedure: EGD WITH BOTOX INJECTION INTO THE PYLORUS, ENDOFLIP, ON TABLE ESOPHAGRAM (N/A ) Start: 1140 End:1222 FluoroTime: .19sec Dose: 7.8mGy Tech: A.BIMPRESSION:Intraoperative fluoroscopic images. Radiologist was not present during the examination.Separate operative report will be issued by the physician performingthe procedure.[id number] 2020-09-08 19:30:47 Test Item Value Reference Range Interpretation Comments Case number (test [id number] code = 1253551) Surgical pathology See link below for PDF report (test code = Lab Report 2255) Result status (test This is Supplemental code = 1462849) Report [facility] [id number] [facility] Vw [id number] 23:06:58EXAMINATION: XR CHEST 1 VW PORTABLE HISTORY: [...] enlarged, similar to prior. Bilateral shoulder arthroplasties. [facility]-[id number] Interface, Radiology Results - 09/06/2020 6:09PM CDT [...] silhouette is enlarged, similar to prior.Bilateral shoulder arthroplasties.[facility] [place]-[id number] [facility] HospitalDqpmiibhLuawzg5654-63-06 16:47:23Kirit Flood MD 09/05/2020 11:48 [address] Location: [...] RSI: Yes Number of Attempts at Approach: [address] [place] [address] 12 [id number] 23:21:56 Test Item Value Reference Range Interpretation [...] T wave abnormality, consider anterior ischemia-Abnormal ECG- [facility] qualitative [id number] 22:48:41 Test Item Value Reference Range Interpretation Comments Interpretation (test Negative results do code = 6924832) not preclude 2019-nCoV infection and should not be used as the sole basis for treatment or other patient management decisions. Negative results must be combined with clinical observations, patient history, and epidemiological information. COVID-19 qualitative Not-Detected Not-Detected RT-PCR result (test code = 17785-4) COVID-19 qualitative See link below for C ase Number: RT-PCR (test code = PDF Lab Report [id number]) [facility]2021-04-09 16:31:00 Test Item Value Reference Range Interpretation Comments POC Activated Clotting Time (test code 153 s = POC Activated Clotting Time) [address]04-09 16:31:00 Test Item Value Reference Range Interpretation Comments POC Activated Clotting Time (test code 153 s = POC Activated Clotting Time) [address]04-09 16:31:00 Test Item Value Reference Range Interpretation Comments POC Activated Clotting Time (test code 153 s = POC Activated Clotting Time) [address]04-09 16:31:00 Test Item Value Reference Range Interpretation Comments POC Activated Clotting Time (test code 153 s = POC Activated Clotting Time) [address]04-09 16:31:00 Test Item Value Reference Range Interpretation Comments POC Activated Clotting Time (test code 153 s = POC Activated Clotting Time) [address]04-09 16:31:00 Test Item Value Reference Range Interpretation Comments POC Activated Clotting Time (test code 153 s = POC Activated Clotting Time) [address]04-09 16:31:00 Test Item Value Reference Range Interpretation Comments POC Activated Clotting Time (test code 153 s = POC Activated Clotting Time) [address]04-09 14:37:00 Test Item Value Reference Range Interpretation Comments POC Activated Clotting Time (test code 454 s = POC Activated Clotting Time) [address]04-09 14:37:00 Test Item Value Reference Range Interpretation Comments POC Activated Clotting Time (test code 454 s = POC Activated Clotting Time) [address]04-09 14:37:00 Test Item Value Reference Range Interpretation Comments POC Activated Clotting Time (test code 454 s = POC Activated Clotting Time) [address]04-09 14:37:00 Test Item Value Reference Range Interpretation Comments POC Activated Clotting Time (test code 454 s = POC Activated Clotting Time) [facility]054[facility] 14:37:00 Test Item Value Reference Range Interpretation Comments POC Activated Clotting Time (test code 454 s = POC Activated Clotting Time) [facility] HendersonD[id number] 14:37:00 Test Item Value Reference Range Interpretation Comments POC Activated Clotting Time (test code 454 s = POC Activated Clotting Time) [facility] HendersonJjcmvalCNHXJFPBBF5353-61-85 14:37:00 Test Item Value Reference Range Interpretation Comments POC Activated Clotting Time (test code 454 s = POC Activated Clotting Time) [facility] HendersonXvvriesTSGOOFZNTM6093-15-88 14:13:00 Test Item Value Reference Range Interpretation Comments POC Activated Clotting Time (test code 354 s = POC Activated Clotting Time) [facility]wgNOHHRVEKZS2213-[facility]-06 14:13:00 Test Item Value Reference Range Interpretation Comments POC Activated Clotting Time (test code 354 s = POC Activated Clotting Time) [facility]IdnctiqCSDFAQWUTT0564-87-35 14:13:00 Test Item Value Reference Range Interpretation Comments POC Activated Clotting Time (test code 354 s = POC Activated Clotting Time) [facility]SyldrhwMSAXRSCSSJ0035-93-09 14:13:00 Test Item Value Reference Range Interpretation Comments POC Activated Clotting Time (test code 354 s = POC Activated Clotting Time) [facility]JnsromsOPZRPMGFUQ8807-60-05 14:13:00 Test Item Value Reference Range Interpretation Comments POC Activated Clotting Time (test code 354 s = POC Activated Clotting Time) [facility]ZjsoxqyGXWRABURTU7747-99-08 14:13:00 Test Item Value Reference Range Interpretation Comments POC Activated Clotting Time (test code 354 s = POC Activated Clotting Time) [facility]RflzgmbJTVKMTISEW4036-09-34 14:13:00 Test Item Value Reference Range Interpretation Comments POC Activated Clotting Time (test code 354 s = POC Activated Clotting Time) [facility] BANK TFHUUWZ6838-50-10 10:37:00Negative (08/29/20 5:37 AM) [facility] UBIYW2112-83-82 10:37:74815Oasniixb HermannCHEM PANEL 2020-08-29 10:37:0028[facility]annCHEM KIHXI8421-00-17 10:37:001.01[facility] HermannCHEM PTLPY4042-95-48 10:37:21693Rhcntkmj HermannCHEM YYUZB1124-93-56 10:37:003.8[facility] HermannCHEM HHOVY8347-45-34 10:37:51910Trtftodw HermannCHEM RSUVJ2800-69-64 10:37:0028[facility] HermannCHEM IAOVM8103-66-47 10:37:009.8 [facility]annCHEM DORWU5987-66-50 10:37:0011.8[facility] HermannCHEM PANEL 2020-08-29 10:37:0059[facility] HermannCHEM OSUUD7156-45-03 10:37:002.9[facility] FsfaqbeJDNCTUFKPE7558-51-99 10:37:006.8[facility] ZzqetqaRLWCMQMIKX4391 10:37:004.47[facility] WhajvzoNLDWXCUCMP0699-00-97 10:37:0010.6[facility] DSPVNXHZKJ7021-30-31 10:37:0034.0[facility] EaxqjyzKWGBZZZCGB7598-14-52 10:37:00 76.1[facility] TdglzhcMNVQGJYAGF7765-94-30 10:37:00 Test Item Value Reference Range Interpretation Comments MCH (test code = MCH) 23.8 pg 27.0-31.0 [facility] StqswvsQWUFCACORT5597-02-55 10:37:0031.3[facility] HermannHEMATOLOGY 2020-08-29 10:37:0018.2[facility] JreifthSJROLLYRGO5094-80-18 10:37:12189Sgngbtwc LowiegnIZINEMGRAE8791-72-68 10:37:007.5[facility] DhkhehaPSWJUXITUY6315-23-61 10:37:00 Test Item Value Reference Range Interpretation Comments PT (test code = PT) 12.8 s 12.0-14.7 [facility] CmbdssmOHQVFQCHEZ4501-82-70 10:37:00 Test Item Value Reference Range Interpretation Comments INR (test code = INR) 0.97 1 0.85-1.17 [facility] NsgysbdHJDXRZMVRS2569-17-25 10:37:00 Test Item Value Reference Range Interpretation Comments PTT (test code = PTT) 25.0 s 22.9-35.8 [facility] LwcqkytXUYWXHPEGZ4430-90-32 10:37:0070.5[facility] HermannHEMATOLOGY 2020-08-29 10:37:0018.8[facility] AdwwypnSTCHMXVTHK2378-39-53 10:37:009.5[facility] ZsibmuxUZQJBMAZSM0356-61-73 10:37:000.9[facility] InxvuxvIGJWDRNXOY4105-80-14 10:37:000.3[facility] XcitygvOHWINPVICG6304-76-01 10:37:004.8[facility] LBQVDQNFAF4406-61-28 10:37:001.3[facility] KuytznoUXQSWLPWCM7482-38-54 10:37:000.6 [facility] NbigirxFYALXMXWXP7041-41-37 10:37:000.1[facility] HermannHEMATOLOGY 2020-08-29 10:37:001+ *ABN*(08/29/20 5:37 AM)[facility] NaawxxcZRYNSVZKKG0291-00-48 10:37:00Not Detected (08/29/20 5:37 AM)[facility]annBLOOD BANK RESULTS 2020-08-29 10:37:00Negative (08/29/20 5:37 AM)[facility] HermannCHEM OWHZW5479-47-92 10:37:89369Oxnmsgmm HermannCHEM YFHHA4095-91-74 10:37:0028[facility] HermannCHEM HBDYT7257-86-75 10:37:001.01[facility] HermannCHEM TTCQQ1270-15-72 10:37:24451 [facility] HermannCHEM PGMWK6644-77-55 10:37:003.8[facility] HermannCHEM PANEL 2020-08-29 10:37:83635Dwhgilrv HermannCHEM OJNCG7690-84-23 10:37:0028[facility] HermannCHEM BOVSI3461-81-86 10:37:009.8[facility] HermannCHEM MVVIO5331-16-29 10:37:0011.8[facility] HermannCHEM XNTQI7842-99-87 10:37:0059[facility] HermannCHEM YSSSX9685-32-07 10:37:002.9[facility] NtkeqscUVYGWCAPKG8832-76-61 10:37:006.8 [facility] MofjobsSEMDAWGIYH8902-40-32 10:37:004.47[facility] HermannHEMATOLOGY 2020-08-29 10:37:0010.6[facility] MdbocgoCHHKPXDKWK5334-18-12 10:37:0034.0[facility] RdcojtbVXAXXOKZHW3504-21-87 10:37:0076.1[facility] DdirtifMVUUYHJZVN0920-09-61 10:37:00 Test Item Value Reference Range Interpretation Comments MCH (test code = MCH) 23.8 pg 27.0-31.0 [facility] WtdrfwuXDOMOWBYSM9820-75-68 10:37:0031.3[facility] HermannHEMATOLOGY 2020-08-29 10:37:0018.2[facility] FbqqcaxCCGFMWRVBN1761-35-63 10:37:55384Qxxdklvk LywrybyRWOTCDHDIA6794-29-17 10:37:007.5[facility] LeufuwqLLMJXFHJZX1121-38-77 10:37:00 Test Item Value Reference Range Interpretation Comments PT (test code = PT) 12.8 s 12.0-14.7 [facility] FcjcnzeFHIVOITTDO7567-43-58 10:37:00 Test Item Value Reference Range Interpretation Comments INR (test code = INR) 0.97 1 0.85-1.17 [facility] QxaykqaEYHZLLRYIA5024-66-46 10:37:00 Test Item Value Reference Range Interpretation Comments PTT (test code = PTT) 25.0 s 22.9-35.8 [facility] GxpgytfITSDLKDAMV8967-54-69 10:37:0070.5[facility] HermannHEMATOLOGY 2020-08-29 10:37:0018.8[facility] QozljjbPZDGUJLFPN0155-53-56 10:37:009.5[facility] GpoofzkZGSOPQKSMK9926-86-37 10:37:000.9[facility] IbvoosxCFXOZHOXSO7811-32-44 10:37:000.3[facility] UzfoqvmMELCMNPMYJ7523-96-83 10:37:004.8[facility] IIWPIXBTBF7054-20-17 10:37:001.3[facility] HprhspbQOMJMJSHOT5073-12-58 10:37:000.6 [facility] CwmuoaxYWNXEPGWNE6295-98-80 10:37:000.1[facility] HermannHEMATOLOGY 2020-08-29 10:37:001+ *ABN*(08/29/20 5:37 AM)[facility] YzuhnuiRRUXRWINCZ0410-43-52 10:37:00Not Detected (08/29/20 5:37 AM)[facility] HermannBLOOD BANK RESULTS 2020-08-29 10:37:00Negative (08/29/20 5:37 AM)[facility] HermannCHEM NQYFN0903-98-32 10:37:81669Rjlgnvjx HermannCHEM LXAVW8608-13-29 10:37:0028[facility] HermannCHEM IPNOM6461-82-08 10:37:001.01[facility] HermannCHEM IDUOI3577-27-87 10:37:54667 [facility] HermannCHEM GPJBL3962-28-27 10:37:003.8[facility] HermannCHEM PANEL 2020-08-29 10:37:81269Exwuooxi HermannCHEM VISSR6452-37-66 10:37:0028[facility] HermannCHEM DENEB0671-59-00 10:37:009.8[facility] HermannCHEM ESOWU8868-27-79 10:37:0011.8[facility] HermannCHEM BXZUY2445-01-37 10:37:0059[facility] HermannCHEM GRZBN2426-38-78 10:37:002.9[facility] JgfxvpeERRUFPBGHJ4093-24-49 10:37:006.8 [facility] CujczlxDTILLKIFVY0663-79-83 10:37:004.47[facility] HermannHEMATOLOGY 2020-08-29 10:37:0010.6[facility] MaozpkrZYDVQFGNSA0806-75-56 10:37:0034.0[facility] JmtktkfETSGSJMVRW1473-64-14 10:37:0076.1[facility] JiatmkuEBTAUAQNWL9853-44-46 10:37:00 Test Item Value Reference Range Interpretation Comments MCH (test code = MCH) 23.8 pg 27.0-31.0 [facility] EcxqqleWJYOGBIWUR7941-45-85 10:37:0031.3[facility] HermannHEMATOLOGY 2020-08-29 10:37:0018.2[facility] LvvlqadYNSEVLQSPL4037-68-00 10:37:09873Csthiswa PyttwwwUZXXGOKXLF7716-77-36 10:37:007.5[facility] OfedfrvCPLFTNSFCJ6649-98-38 10:37:00 Test Item Value Reference Range Interpretation Comments PT (test code = PT) 12.8 s 12.0-14.7 [facility] ZopyazeGLIGDANKJR2191-15-69 10:37:00 Test Item Value Reference Range Interpretation Comments INR (test code = INR) 0.97 1 0.85-1.17 [facility] AqgtetaBRIFBNHMRZ1891-51-86 10:37:00 Test Item Value Reference Range Interpretation Comments PTT (test code = PTT) 25.0 s 22.9-35.8 [facility] ZeypzwtDAAUIEGLIQ8025-85-34 10:37:0070.5[facility] HermannHEMATOLOGY 2020-08-29 10:37:0018.8[facility] ActchbcRQDWVHEVRS9634-54-51 10:37:009.5[facility] ZugzpxeAGKRZKRSRF7012-13-15 10:37:000.9[facility] KwrlgyeZYYHUWKZUE3856-99-64 10:37:000.3[facility] LaylltnWCCIDVFLFE5343-25-81 10:37:004.8[facility] PLJYHXYDIG0344-13-30 10:37:001.3[facility] MknafduBYMOHQHRPA9493-48-21 10:37:000.6 [facility] TsdvnuvEAPZBBEBPD3398-41-20 10:37:000.1[facility] HermannHEMATOLOGY 2020-08-29 10:37:001+ *ABN*(08/29/20 5:37 AM)[facility] XgcvtznFZCDVJLQIM0085-91-52 10:37:00Not Detected (08/29/20 5:37 AM)[facility] HermannBLOOD BANK RESULTS 2020-08-29 10:37:00Negative (08/29/20 5:37 AM)[facility] HermannCHEM BPNAM4599-94-50 10:37:26728Isfavsrt HermannCHEM UHLNH0475-56-93 10:37:0028[facility] HermannCHEM RWEWH4797-25-38 10:37:001.01[facility] HermannCHEM VHUWX1773-13-65 10:37:10404 [facility] HermannCHEM XCOHR7179-44-01 10:37:003.8[facility] HermannCHEM PANEL 2020-08-29 10:37:27613Jbksmejk HermannCHEM IKFIW9955-21-02 10:37:0028[facility] HermannCHEM JXIKN4643-82-18 10:37:009.8[facility] HermannCHEM NMNZS4416-57-87 10:37:0011.8[facility] HermannCHEM CEBOO7843-83-31 10:37:0059[facility] HermannCHEM ENHDX2907-48-41 10:37:002.9[facility] OhgnduwZTSUYLUWKB7683-27-67 10:37:006.8 [facility] HsavfjnPIKYIPSRLN6762-82-18 10:37:004.47[facility] HermannHEMATOLOGY 2020-08-29 10:37:0010.6[facility] ZlehivlTWLOLLQKUB0236-72-50 10:37:0034.0[facility] XlzjbqkJCCBLBLXVB6691-37-97 10:37:0076.1[facility] IcpjqyfTEHRJAATGD6494-14-94 10:37:00 Test Item Value Reference Range Interpretation Comments MCH (test code = MCH) 23.8 pg 27.0-31.0 [facility] HfbohypRYCJLFQLIC3049-88-61 10:37:0031.3[facility] HermannHEMATOLOGY 2020-08-29 10:37:0018.2[facility] UkanbwpSANPKAVRRT1415-44-68 10:37:17713Zufnmlsd BlusixnMJIBZBCZIS2832-37-07 10:37:007.5[facility] LvswwkdJIUJGZQVNW8772-70-04 10:37:00 Test Item Value Reference Range Interpretation Comments PT (test code = PT) 12.8 s 12.0-14.7 [facility] IwnqfmeOAQMTPQYWY5127-00-24 10:37:00 Test Item Value Reference Range Interpretation Comments INR (test code = INR) 0.97 1 0.85-1.17 [facility] TpmsxxqQZZQFIUDOY4961-18-53 10:37:00 Test Item Value Reference Range Interpretation Comments PTT (test code = PTT) 25.0 s 22.9-35.8 [facility] XpogabyUEOGTLUOHJ0999-80-23 10:37:0070.5[facility] HermannHEMATOLOGY 2020-08-29 10:37:0018.8[facility] FtsutbaEFSUGLVOXX3438-29-88 10:37:009.5[facility] HchezssRQTRSFMROD6286-51-70 10:37:000.9[facility] NaqthueFHDVIWVRAM7335-31-16 10:37:000.3[facility] TzsciklQBNUOHORJH6049-55-95 10:37:004.8[facility] CGNPMHRMTL4796-93-32 10:37:001.3[facility] VqauyxrEBBCURYLLH8690-13-61 10:37:000.6 [facility] AyqpwoyHITVPUTPCQ8253-30-90 10:37:000.1[facility] HermannHEMATOLOGY 2020-08-29 10:37:001+ *ABN*(08/29/20 5:37 AM)[facility] FskwykbJOGQDRSQIV5630-67-58 10:37:00Not Detected (08/29/20 5:37 AM)[facility] HermannBLOOD BANK RESULTS 2020-08-29 10:37:00Negative (08/29/20 5:37 AM)[facility] HermannCHEM ZLAXC8951-92-20 10:37:84624Lalvlygz HermannCHEM KPLWT8035-29-15 10:37:0028[facility] HermannCHEM UDJMZ6238-68-85 10:37:001.01[facility] HermannCHEM WKTBK7936-11-57 10:37:76742 [facility] HermannCHEM KVLZU7731-60-05 10:37:003.8[facility] HermannCHEM PANEL 2020-08-29 10:37:05311Tzromrvy HermannCHEM UMABF5721-19-18 10:37:0028[facility] HermannCHEM JHXZV0839-34-34 10:37:009.8[facility] HermannCHEM CGLSC8120-56-37 10:37:0011.8[facility] HermannCHEM XAHYD5202-80-25 10:37:0059[facility] HermannCHEM TQKQY8503-16-52 10:37:002.9[facility] XmcbdxfBVPHTVSMWM5464-26-70 10:37:006.8 [facility] QanwfnlATQDEEYEAN8664-92-61 10:37:004.47[facility] HermannHEMATOLOGY 2020-08-29 10:37:0010.6[facility] AgslcsmQPBAXFHGNT4759-22-62 10:37:0034.0[facility] IdtlrstRXTFPQLUCU1661-44-05 10:37:0076.1[facility] CbfdnauYFXIQUUPNK7837-47-84 10:37:00 Test Item Value Reference Range Interpretation Comments MCH (test code = MCH) 23.8 pg 27.0-31.0 [facility] NfzdvrpVFYECIPIHK7606-84-14 10:37:0031.3[facility] HermannHEMATOLOGY 2020-08-29 10:37:0018.2[facility] HspycvwRDDBOOLDPA3338-72-11 10:37:64430Fmnpyspy KfjkhdvPIRNQFXYRS5965-30-67 10:37:007.5[facility] IrlddifMDUSVPYROQ3061-56-87 10:37:00 Test Item Value Reference Range Interpretation Comments PT (test code = PT) 12.8 s 12.0-14.7 [facility] NufuyzbJQQXJJIGZO7701-90-14 10:37:00 Test Item Value Reference Range Interpretation Comments INR (test code = INR) 0.97 1 0.85-1.17 [facility] JzstjyyMMPZZGLSRU2528-52-90 10:37:00 Test Item Value Reference Range Interpretation Comments PTT (test code = PTT) 25.0 s 22.9-35.8 [facility] BjepkkrMNTXOUVHEL4110-64-83 10:37:0070.5[facility] HermannHEMATOLOGY 2020-08-29 10:37:0018.8[facility] McrjueeYONQPJTHJB4026-23-80 10:37:009.5[facility] GybnbatWTDFOSOAOL1074-99-99 10:37:000.9[facility] OflvcemFAAQEMXBPX1666-87-35 10:37:000.3[facility] VaihjceMXBHFDUSGA1940-87-25 10:37:004.8[facility] LHRVYAGPGS3092-86-14 10:37:001.3[facility] IodjhigKMMCGKURLJ7667-82-29 10:37:000.6 [facility] YvwwjkpGQBUAYZAHX3519-59-69 10:37:000.1[facility] HermannHEMATOLOGY 2020-08-29 10:37:001+ *ABN*(08/29/20 5:37 AM)[facility] CvyjtqfXHRGIMOYKX8451-74-08 10:37:00Not Detected (08/29/20 5:37 AM)[facility] HermannBLOOD BANK RESULTS 2020-08-29 10:37:00Negative (08/29/20 5:37 AM)[facility] HermannCHEM APTNF6751-22-34 10:37:28371Afusdkdk HermannCHEM JKMXR2736-76-29 10:37:0028[facility] HermannCHEM DFGTT2553-71-53 10:37:001.01[facility] HermannCHEM IRJRE9835-87-76 10:37:08428 [facility] HermannCHEM MFHPH3644-25-76 10:37:003.8[facility] HermannCHEM PANEL 2020-08-29 10:37:56088Mitwvaqj HermannCHEM KAMNN2244-28-07 10:37:0028[facility] HermannCHEM YIWMT7289-33-09 10:37:009.8[facility] HermannCHEM IHVXT0687-89-23 10:37:0011.8[facility] HermannCHEM RCOWA0810-24-89 10:37:0059[facility] HermannCHEM WZOBN2657-46-52 10:37:002.9[facility] LsyssoxLQLMHZWPZK1662-38-90 10:37:006.8 [facility] MctbmdkSRAJGYVKQJ3906-03-55 10:37:004.47[facility] HermannHEMATOLOGY 2020-08-29 10:37:0010.6[facility] AntznthQSCACLNOWA1983-94-09 10:37:0034.0[facility] TwyktbkTNDWOMVMGT2465-54-63 10:37:0076.1[facility] RpvkhzpGZWSDQISTK6558-54-99 10:37:00 Test Item Value Reference Range Interpretation Comments MCH (test code = MCH) 23.8 pg 27.0-31.0 [facility] ZexfnsbNJAUSPPYKR8307-11-36 10:37:0031.3[facility] HermannHEMATOLOGY 2020-08-29 10:37:0018.2[facility] IgtnbvgUEYKZUXZTB3218-18-49 10:37:19540Gkgoqnhv BwraalfCQNFJVOVZP1936-79-87 10:37:007.5[facility] AymomdlNMUQIOBKBS9716-17-69 10:37:00 Test Item Value Reference Range Interpretation Comments PT (test code = PT) 12.8 s 12.0-14.7 [facility] CyakztyBJNAVUUTWF7756-02-80 10:37:00 Test Item Value Reference Range Interpretation Comments INR (test code = INR) 0.97 1 0.85-1.17 [facility] LwihbttNHZSZIKTMM0351-24-57 10:37:00 Test Item Value Reference Range Interpretation Comments PTT (test code = PTT) 25.0 s 22.9-35.8 [facility] DiiggjaRXUNKTZFXY8285-47-09 10:37:0070.5[facility] HermannHEMATOLOGY 2020-08-29 10:37:0018.8[facility] UpvjvvzFOAEGKTKOO9088-23-59 10:37:009.5[facility] CkejnmqDQBYOEKMVM1676-58-07 10:37:000.9[facility] QsuprvhKAELCWUKGY2138-86-13 10:37:000.3[facility] AzauhrgAPTALVPSZR7097-55-14 10:37:004.8[facility] CYBFTRTFUQ9312-13-42 10:37:001.3[facility] NlwwrugQTYCLAZYUJ7207-45-45 10:37:000.6 [facility] YwimyrwZWCDNPJYFZ3279-40-27 10:37:000.1[facility] HermannHEMATOLOGY 2020-08-29 10:37:001+ *ABN*(08/29/20 5:37 AM)[facility] JfgejelTEVGJHMLHH9884-28-07 10:37:00Not Detected (08/29/20 5:37 AM)[facility] HermannBLOOD BANK RESULTS 2020-08-29 10:37:00Negative (08/29/20 5:37 AM)[facility] HermannCHEM THVUL0525-93-83 10:37:64048Iyhpslld HermannCHEM KTXZE8169-73-53 10:37:0028[facility] HermannCHEM CMHYA6386-03-46 10:37:001.01[facility] HermannCHEM DZCVQ5204-09-26 10:37:96882 [facility] HermannCHEM EFWRK5410-07-17 10:37:003.8[facility] HermannCHEM PANEL 2020-08-29 10:37:72477Cvlxprcg HermannCHEM UEWWN4057-71-17 10:37:0028[facility] HermannCHEM TQQCT4025-36-29 10:37:009.8[facility] HermannCHEM VXTLO0297-96-25 10:37:0011.8[facility] HermannCHEM MMIFL2487-88-54 10:37:0059[facility] HermannCHEM GNWVY0031-87-42 10:37:002.9[facility] MujjnjyHDQQUTDJBN0050-11-55 10:37:006.8 [facility] KtwivzjCPSXKJZAID6715-68-62 10:37:004.47[facility]annHEMATOLOGY 2020-08-29 10:37:0010.6[facility] GlakgfrVSZBXDJVEF3362-20-36 10:37:0034.0[facility] TdphthzDMQYQNSPRY6749-27-47 10:37:0076.1[facility] ZiielpiZRAURYZKLI2689-37-65 10:37:00 Test Item Value Reference Range Interpretation Comments MCH (test code = MCH) 23.8 pg 27.0-31.0 [facility] RavdnzaFLBDDSYPCK5453-07-42 10:37:0031.3[facility] HermannHEMATOLOGY 2020-08-29 10:37:0018.2[facility] GvgfysmNKULLVKIOL5417-18-94 10:37:58643Nnqxhluh MpuszcoUGLOIRNBZP1682-91-22 10:37:007.5[facility] MzdblfuECABTRSEDK4624-09-49 10:37:00 Test Item Value Reference Range Interpretation Comments PT (test code = PT) 12.8 s 12.0-14.7 [facility] HahbpboYLRZUXZJOF6800-47-04 10:37:00 Test Item Value Reference Range Interpretation Comments INR (test code = INR) 0.97 1 0.85-1.17 [facility] VphkaatNHUEBDNRIP7048-72-10 10:37:00 Test Item Value Reference Range Interpretation Comments PTT (test code = PTT) 25.0 s 22.9-35.8 [facility] EsatfckEWKVJFBKSG6418-73-27 10:37:0070.5[facility] HermannHEMATOLOGY 2020-08-29 10:37:0018.8[facility] RonvfdtFNGCXUSYRF6758-64-76 10:37:009.5[facility] LplujyvVLTUQUOWSP3879-22-10 10:37:000.9[facility] HlxsofzVWXKFCWJYY5643-40-58 10:37:000.3[facility] AdpmasdUFZZFDIDOH0145-45-55 10:37:004.8[facility] VUPIFQUDAA7519-30-43 10:37:001.3[facility] NotxeiiXSVLWWDWSR8525-16-19 10:37:000.6 [facility] IkekrtnQOWYAPMFHF4189-07-61 10:37:000.1[facility] HermannHEMATOLOGY 2020-08-29 10:37:001+ *ABN*(08/29/20 5:37 AM)[facility] AwmgeiuQWTNMYGNFC5587-54-61 10:37:00Not Detected (08/29/20 5:37 AM)[facility] [...] rate, with complete emptying by 4 hours. [facility]-[id number] Interface, Radiology Results 08/27/2020 6:17 PM CDT [...] rate, with complete emptying by 4 hours. [facility]-[id number] referral test 2020-05-09 21:24:58 Test Item Value Reference Range Interpretation Comments Misc test HIV-1 RNA QUAL PCR name (test code = 2566) Misc test see note Human Immunodef iciency result (test Virus 1 (HIV-1) by code = 1730) Qualitative Brusher Operator-M ediated Amplification ( TMA) [facility] test code 2965105 HIV-1 by Qualit ative TMA See Note SOURCE/SPECIMEN PLASMA HIV-1 RNA, QUAL ITATIVE TMA HIV-1 RNA, QL TMA T TRAINING PERSONNEL SUPERVISOR Test Not Performed. Initial testing necessi tated a repeat, but the re was insufficient sa mple to perform repeat. SAMPLE LEFT FOR REPEAT IS 50 uL. NEED 1000 u L TO RUN REPEAT. This te st was performed using the APTIMA(R) HIV-R NA Qualitative Ass ay (Gen-Probe). ======== ======== Te st performed by:[employer] [place] [address] KYLE (test HIVQL - HIV-1 RNA, code = KYLE) Qualitative TMA (FROZEN)AR Test Code: 7568283Exxocs: plasma [facility] duplex venous upper qrztfujic2031-32-53 04:57:00 Vascular Ultrasound Laboratory Upper Extremity Venous Report [id number] [address] Pat.Name: MAC LIOMaria Elena Lozano.ID: [id number] St.Date: 04/30/2020 Refer.MD: ELISEO ARCE MD Exam Time: 5:04:00 PM Study Type:UE Venous Age: 9 1955,65Y Sex: FEMALE Sonogrphr: Dwayne Manio, RVS, RCS Pat. Stat.:Inpatient Room: [place] [address] 2020 Tape Vol: EDGAR, CPT - 4: 26761 Echo Event ID:[id number] Order ID: [id number] Reason for Study:Arm swelling or pain, DVT [...] veins.*Preliminary result reported to ASHLEY Santos @ 8054 on 04/30/20.PHYSICIAN INTERPRETATION Venous examination of the both upper extremities and neck demonstratedno evidence of deep venous thrombosis. Total superficial vein thrombosis of the right basilic vein. FINDINGS: Signed 04/30/2020 10:57 PMFrancis Cabral MD, RPVIIntnathaly, Radiology Results In - 04/30/2020 10:58 PM CST Vascular Ultrasound Laboratory Upper Extremity Venous Report [id number] [address] Pat.Name: LIO WATTS Pat.ID: [id number] .Date: 04/30/2020 Refer.MD: ELISEO ARCE MD Exam Time: 5:04:00 PM Study Type:UE Venous Age: 10 1955,65Y Sex: FEMALE Sonogrphr: IBIS Espinosa, SANKET Pat. Stat.:Inpatient Room: [place] [address] 2020 Tape Vol: JM, CPT - 4: 08309 Echo Event ID:[id number] Order ID: [id number] Reason for Study:Arm swelling or pain, DVT [...] veins.*Preliminary result reported to ASHLEY Santos @ 3846 on 04/30/20.PHYSICIAN INTERPRETATION Venous examination of the both upper extremities and neck demonstratedno evidence of deep venous thrombosis. Total superficial vein thrombosis of the right basilic vein. FINDINGS: ------Signed 04/30/2020 10:57 PMFrancis Cabral MD, [facility] 2 [id number] 22:21:01EXAMINATION: XR CHEST 2 VW CLINICAL HISTORY: [...] cardiopulmonary process or active disease of the chest.[id number] HospitalMidline Unsuccessful [id number] 17:14:34ANicole zhang RN 04/30/2020 11:25 AMMidline Unsuccessful [...] place a PIV g.20 in lower arm .[facility]XR Abdomen 1 Vw [id number] 16:20:14EXAMINATION: XR ABDOMEN 1 VW PORTABLE CLINICAL HISTORY: Abdominal pain post op COMPARISON: No prior IMPRESSION:1.Residual barium within the colon throughout. No small bowel obstruction noted. [facility]-2U [id number] Interface, Radiology Results Incoming - 04/30/2020 10:23 AM CST EXAMINATION: XR ABDOMEN 1 VW PORTABLECLINICAL HISTORY: Abdominalpain post opCOMPARISON: No priorIMPRESSION:1.Residual barium within the colon throughout. No smallbowel obstruction noted.[facility]-[id number] Scott and White the [facility] Hospital – PlanoOuvjfbetGyxefb1051-26-95 20:57:57Carlee Malloy MD 04/28/2020 2:59 PMAirwayPerformed by: Carlee Malloy MDAuthorized by: Carlee Malloy MD Location: ORUrgency: ElectiveDifficult Airway: No Anesthesiologist: Kvng Malloy, FLORENTINesident/LASER ENGINEER/AA: Allan Morocho, DOPerformed by: resident/LASER ENGINEER/AAPreoxygenated grqk494% O2: Yes C- spine Precautions Maintained Throughout: [...] No Number of Attempts at Approach: 1 [facility] HospitalTransthoracic Echocardiogram Complete, (w Contrast, Strain and 3D if needed)2020-04-28 00:20:00 Echocardiography Report [address] [place] [address] Pat.Name: LIO WATTS.ID: [id number] St.Date: 04/27/2020 Refer.MD: ELISEO ARCE MD Exam Time: 2:21:00 PM Study Type:Routine Echo Height: 64in Weight: 213lb BSA: 2.01 m2 Age: 9 1955,65Y Sex: FEMALE BP: 128/89 HR: 102 bpm Sonogrphr: SANKET Perkins Pat. Stat.:Inpatient Room: [facility] Study Status:Final Echo Event ID:[id number] Order ID: [id number] Reason for Study:Atrial FibrillationHistory / Clinical:Hypertension Procedures: [...] estimate PA systolic pressure. MEASUREMENTS: 2DParasternal Long [place] Ao An 2.2 cm LVPWd 1 cm [...] 04/27/2020 6:21 PM CST Echocardiography Report [address] [facility], [place] [address], [place] [address] Pat.Name: LIO WATTS.ID: [id number] .Date: 04/27/2020 Refer.MD: ELISEO ARCE MD Exam Time: 2:21:00 PM Study Type:Routine Echo Height: 64in Weight: 213lb BSA: 2.01 m2 Age: 9 1955,65Y Sex: FEMALE BP: 128/89 HR: 102 bpm Sonogrphr: SANKET Perkins [facility]. Stat.:Inpatient Room: [facility] Study Status:Final Echo Event ID:[id number] Order ID: [id number] Reason for Study:Atrial FibrillationHistory / Clinical:Hypertension Procedures: [...] PA systolic pressure.- MEASUREMENTS: ---- 2DParasternal Long [place] Ao An 2.2 cm LVPWd 1 cm [...] LVOT CI 3.1 l/m/m2 Signed 04/27/2020 06:20 PMMoh[facility] MarielyNicoBell[facility] Center Esophagram Double [id number] 18:07:12EXAMINATION: FL ESOPHAGRAM DOUBLE CONTRAST CLINICAL HISTORY: [...] Wo Contrast Abdomen Wo Contrast Pelvis Wo Tnwwvafh4021-03-27 15:23:55EXAMINATION: CT CHEST WO CONTRAST ABDOMEN WO [...] chronic and incidental findings as detailed above. [facility]-[id number] Dictated and approved by radiology resi dent/fellow: Jenna Valenzuela M.D. I, Medhat Flowers Jr., M.D., personally reviewed the images and resident's/fellow's findings and agree with the final report.[facility], Radiology Results Incoming - 04/21/2020 9:27 [...] aorta.4.Additional chronic and incidental findings as detailed above.[facility]-[id number] and approved by student services vice president/fellow: Jenna Valenzuela M.D.I, Medhat Flowers Jr., M.D., personally reviewed the images and resident's/fellow's findings and agree with the final report. [facility], GC, TV,PCR, [place] [id number] 15:38:00 Test Item Value Reference Range Interpretation Comments FT (test code = CHTR) Not detected (qualifier Not Detected N value) FT (test code = Not detected (qualifier Not Detected N NGONO) value) FT (test code = TRVG) Not detected (qualifier Not Detected N value) URINALYSIS WITH [id number] 10:57:00 Test Item Value Reference Range Interpretation Comments Color (test code = UCOLR) Dk. Yellow Clarity (test code = UCLAR) Hazy Glucose (test code = UGLUC) NEGATIVE NEGATIVE N Bilirubin (test code = UBILI) NEGATIVE NEGATIVE N Ketones (test code = UKET) NEGATIVE NEGATIVE N Specific [place] (test code = 1.025 1.005-1.030 A USPGR) [...]
[2021-08-31] MEDS ORDERED: ONDANSETRON 4 MG (ODT) TAB ONE (12:38)
[2021-08-31] MEDS ORDERED: HYDROMORPHONE HCL 1 MG/ML INJ ONE ×2 (12:38→15:07)
[2021-08-31 13:14] LABS: Absolute Lymphocytes (CBC) 1.1 K/uL (0.7-4.9); Hematocrit 28.6 % (36.0-45.0); Lymphocytes % 18.6 % (15.3-44.8); MPV 7.3 fL (7.6-11.3); RBC Red Blood Cell Count 3.74 M/uL (3.86-4.86)
[2021-08-31 13:20] LABS: Protime INR 1.07
[2021-08-31 13:32] LABS: Albumin 3.3 g/dL (3.4-5.0); Bilirubin Direct 0.2 mg/dL (0-0.2); Bilirubin Total 0.5 mg/dL (0.2-1.0); Magnesium 2.1 mg/dL (1.8-2.4); Potassium 3.6 mmol/L (3.5-5.1)
--- NOTE | 2021-08-31 13:47 | RAD REPORT ---
EXAM DESCRIPTION: RAD - Chest Single View - 08/31/2021 1:42 pm CLINICAL HISTORY: CHEST PAIN Chest pain. COMPARISON: Chest Single View dated 08/28/2021; Chest Single View dated 08/21/2021; Chest Pa And Lat (2 Views) dated 08/11/2021; Chest Single View dated 08/10/2021 FINDINGS: Portable technique limits examination quality. The lungs are grossly clear. The heart is moderately enlarged. Bilateral shoulder arthroplasties. IMPRESSION: No acute intrathoracic process suspected.
[2021-08-31 14:45] LABS: SARS-COV-2 RT PCR NEGATIVE (NEGATIVE)
--- NOTE | 2021-08-31 16:49 | ER ---
Nurse's Notes [facility] Name: Fawn Fleming Age: 66 yrs Sex: Female : 1955 Arrival Date: 08/31/2021 Time: 11:56 Bed 2 Private MD: Diagnosis: Chest pain, unspecified Presentation: 08/31 11:45 Chief complaint: EMS states: Patient called EMS c/o SOB, headache, hypertension and jg9 continued hallucinations-patient in ED Tuesday with same complaints. Patient received 0.4mg nitro x 2 with improvement in discomfort reported, 324 Aspirin, and 975 mg of Tylenol. Coronavirus screen: Vaccine status:. Ebola Screen: Patient negative for fever greater than or equal to 101.5 degrees Fahrenheit, and additional compatible Ebola Virus Disease symptoms Patient denies exposure to infectious person. Patient denies travel to an Ebola-affected area in the 21 days before illness onset. Initial Sepsis Screen: Does the patient meet any 2 criteria? No. Patient's initial sepsis screen is negative. Does the patient have a suspected source of infection? No. Patient's initial sepsis screen is negative. Risk Assessment: Do you want to hurt yourself or someone else? Patient reports no desire to harm self or others. Onset of symptoms is unknown. 11:45 Method Of Arrival: EMS: [facility] jg9 11:45 Acuity: BLAYNE 3 jg9 Triage Assessment: 11:45 General: Appears uncomfortable, Behavior is anxious. Pain: Complains of pain in head. jg9 Respiratory: Reports shortness of breath Onset: The symptoms/episode began/occurred at an unknown time. the patient has mild shortness of breath. Historical: - Allergies: 12:00 Bactrim DS; jg9 12:00 butorphanol tartrate; jg9 12:00 Fentanyl; jg9 12:00 Reglan; jg9 12:00 Stadol; jg9 12:00 sulfamethoxazole (bulk); jg9 12:00 TRIMETHOPRIM; jg9 - PMHx: 12:00 Anxiety; Atrial Fib; Bipolar disorder; Chronic pain; COPD; esophageal varices; jg9 Hepatitis; HIV; Hypertension; Migraines; Panic Attacks; - PSHx: 12:00 Appendectomy; Bilateral shoulder repair; Cholecystectomy; hernia repair; R wrist SX; jg9 - Immunization history:: Adult Immunizations up to date. - Social history:: Smoking status: Patient/guardian denies using tobacco, the patient reports quitting approximately 2 years ago. Screenin:30 Abuse screen: Denies threats or abuse. Denies injuries from another. Nutritional jg9 screening: No deficits noted. Tuberculosis screening: No symptoms or risk factors identified. Fall Risk None identified. Assessment: 11:45 Cardiovascular: Rhythm is sinus rhythm. Respiratory: Airway Respiratory effort is even, jg9 unlabored, Breath sounds are diminished bilaterally. 14:01 Reassessment: Patient and/or family updated on plan of care and expected duration. Pain jg9 level reassessed. Patient states symptoms have improved. headache improving. 15:15 Reassessment: Patient and/or family updated on plan of care and expected duration. Pain jg9 level reassessed. Patient sitting in wheelchair, patient reports she can't get in the bed because there was a man with his kid laying in it. Patient advised there is no one in bed and the only person that has been assigned to the room is her. 17:58 Reassessment: Patient and/or family updated on plan of care and expected duration. Pain jg9 level reassessed. Vital Signs: 11:45 BP 157 / 84; Pulse 57; Resp 24 S; Temp 97.9(TE); Weight 95.25 kg; Height 5 ft. 4 in. jg9 (162.56 cm); Pain 9/10; 13:30 BP 160 / 80; Pulse 53; Resp 17 S; Pulse Ox 95% ; jg9 13:45 BP 168 / 88; Pulse 52; Resp 22 S; Pulse Ox 95% on R/A; jg9 14:00 BP 172 / 91; Pulse 53; Resp 15 S; Pulse Ox 97% on R/A; jg9 15:11 BP 166 / 86; Pulse 52; Resp 15 S; Pulse Ox 95% on R/A; Pain 8/10; jg9 15:36 BP 151 / 86; Pulse 53; Resp 12 S; Pulse Ox 93% on R/A; jg9 16:00 BP 175 / 79; Pulse 58; Resp 20 S; Pulse Ox 95% on R/A; jg9 18:00 BP 145 / 90; Pulse 55; Resp 18 S; Pulse Ox 95% on R/A; jg9 11:45 Body Mass Index 36.05 (95.25 kg, 162.56 cm) jg9 ED Course: 11:56 Patient arrived in ED. jg9 12:00 Triage completed. jg9 12:00 Arm band placed on. jg9 12:01 Lv Boudreaux PA is PHCP. [facility] 12:01 Ramon Baker MD is Attending Physician. [facility] 12:07 EKG done, by ED staff, reviewed by Lv DHILLON. mb7 12:07 Patient has correct armband on for positive identification. Bed in low position. Call mb7 light in reach. Side rails up X 1. Door closed. Noise minimized. Warm blanket given. 12:38 Patient up ambulating to the bathroom. jg9 13:09 Initial lab(s) drawn, by me, sent to lab. Missed attempt(s): 24 gauge in right hand. dh3 Bleeding controlled, band aid applied, catheter tip intact. 13:44 XRAY Chest (1 view) In Process Unspecified. EDMS 14:02 No apparent distress. Resting quietly. jg9 15:17 No apparent distress. sitting in wheel chair. jg9 Administered Medications: 12:38 Drug: Dilaudid (HYDROmorphone) 1 mg Route: IM; Site: right deltoid; jg9 13:58 Follow up: Response: No adverse reaction; Pain is decreased jg9 12:38 Drug: Ondansetron 4 mg Route: PO; jg9 13:57 Follow up: Response: No adverse reaction jg9 15:11 Drug: Dilaudid (HYDROmorphone) 1 mg Route: IM; Site: left deltoid; jg9 15:49 Follow up: Response: RASS: Drowsy (-1) jg9 17:41 Drug: Xopenex (levalbuterol) (3) 1.25 mg Route: Inhalation; ww 18:01 Follow up: Response: No adverse reaction jg9 17:42 Drug: Decadron (dexamethasone) 10 mg Route: IM; Site: right gluteus; ww 18:01 Follow up: Response: No adverse reaction jg9 Outcome: 16:48 Discharge ordered by . [facility] 18:22 Patient left the ED. jg9 Signatures: Dispatcher [employer] EDMS Lv Boudreaux PA PA jmm Herrera, Deanna [facility] Jessie Cristina [facility] Karen Joseph RN RN jg9 Tonya Dominguez RN RN ww Corrections: (The following items were deleted from the chart) 13:44 11:45 Chief complaint: EMS states: Patient called EMS c/o SOB, headache, hypertension jg9 and continued hallucinations-patient in ED Tuesday with same complaints jg9
--- NOTE | 2021-08-31 16:49 | EDPHYS ---
Physician Documentation [facility] Name: Fawn Fleming Age: 66 yrs Sex: Female : 1955 Arrival Date: 08/31/2021 Time: 11:56 Bed 2 Private MD: ED Physician Ramon Baker HPI: 08/31 12:03 This 66 yrs old Female presents to ER via EMS with complaints of Shortness Of Breath - jmm headache, hallucinations. 12:03 The patient has shortness of breath at rest. jmm 12:03 Onset: The symptoms/episode began/occurred acutely, 1 day(s) ago. jmm 12:03 Duration: The symptoms are continuous, and are steadily getting worse. The patient's jmm shortness of breath is aggravated by nothing, is alleviated by nothing. Associated signs and symptoms: Pertinent positives: chest pain. The patient has experienced similar episodes in the past. Historical: - Allergies: 12:00 Bactrim DS; jg9 12:00 butorphanol tartrate; jg9 12:00 Fentanyl; jg9 12:00 Reglan; jg9 12:00 Stadol; jg9 12:00 sulfamethoxazole (bulk); jg9 12:00 TRIMETHOPRIM; jg9 - PMHx: 12:00 Anxiety; Atrial Fib; Bipolar disorder; Chronic pain; COPD; esophageal varices; jg9 Hepatitis; HIV; Hypertension; Migraines; Panic Attacks; - PSHx: 12:00 Appendectomy; Bilateral shoulder repair; Cholecystectomy; hernia repair; R wrist SX; jg9 - Immunization history:: Adult Immunizations up to date. - Social history:: Smoking status: Patient/guardian denies using tobacco, the patient reports quitting approximately 2 years ago. ROS: 12:03 Constitutional: Negative for fever, chills, and weight loss. jmm 12:03 Cardiovascular: Positive for chest pain. 12:03 Respiratory: Positive for cough, shortness of breath. 12:03 All other systems are negative. Exam: 12:03 Constitutional: This is a well developed, well nourished patient who is awake, alert, jmm and in no acute distress. Head/Face: atraumatic. Eyes: EOMI, no conjunctival erythema appreciated ENT: Moist Mucus Membranes Neck: Trachea midline, Supple Chest/axilla: Normal chest wall appearance and motion. Cardiovascular: Regular rate and rhythm. No edema appreciated Respiratory: Normal respirations, no respiratory distress appreciated Abdomen/GI: Non distended, soft Back: Normal ROM Skin: General appearance color normal MS/ Extremity: Moves all extremities, no obvious deformities appreciated, no edema noted to the lower extremities Neuro: Awake and alert Psych: Behavior is normal, Mood is normal, Patient is cooperative and pleasant Vital Signs: 11:45 BP 157 / 84; Pulse 57; Resp 24 S; Temp 97.9(TE); Weight 95.25 kg; Height 5 ft. 4 in. jg9 (162.56 cm); Pain 9/10; 13:30 BP 160 / 80; Pulse 53; Resp 17 S; Pulse Ox 95% ; jg9 13:45 BP 168 / 88; Pulse 52; Resp 22 S; Pulse Ox 95% on R/A; jg9 14:00 BP 172 / 91; Pulse 53; Resp 15 S; Pulse Ox 97% on R/A; jg9 15:11 BP 166 / 86; Pulse 52; Resp 15 S; Pulse Ox 95% on R/A; Pain 8/10; jg9 15:36 BP 151 / 86; Pulse 53; Resp 12 S; Pulse Ox 93% on R/A; jg9 16:00 BP 175 / 79; Pulse 58; Resp 20 S; Pulse Ox 95% on R/A; jg9 18:00 BP 145 / 90; Pulse 55; Resp 18 S; Pulse Ox 95% on R/A; jg9 11:45 Body Mass Index 36.05 (95.25 kg, 162.56 cm) 9 MDM: 12:11 Patient medically screened. [facility] 16:46 Data reviewed: vital signs, nurses notes. Counseling: I had a detailed discussion with [facility] the patient and/or guardian regarding: the historical points, exam findings, and any diagnostic results supporting the discharge/admit diagnosis, lab results, radiology results, the need for outpatient follow up, to return to the emergency department if symptoms worsen or persist or if there are any questions or concerns that arise at home. ED course: Patient's chest pain is relieved in the ED. MARTIN has improved. Similar to previous headaches. Repeat troponin decreased from previous. I do not currently suspect acs. Patient advised to follow up with cardiology and otherwise given strict return precautions. patient understood and agrees with the plan if care. . 08/31 12:03 Order name: Basic Metabolic Panel; Complete Time: 13:34 [facility] 08/31 12:03 Order name: CBC with Diff; Complete Time: 13:28 [facility] 08/31 12:03 Order name: LFT's; Complete Time: 13:34 [facility] 08/31 12:03 Order name: Magnesium; Complete Time: 13:34 [facility] 08/31 12:03 Order name: NT PRO-BNP; Complete Time: 13:34 [facility] 08/31 12:03 Order name: PT-INR; Complete Time: 13:28 [facility] 08/31 12:03 Order name: Troponin HS; Complete Time: 13:34 [facility] 08/31 12:03 Order name: XRAY Chest (1 view); Complete Time: 13:50 [facility] 08/31 13:36 Order name: COVID-19/FLU A+B (Document "Date of Onset" if Symptomatic); Complete Time: [facility] 14:46 08/31 15:08 Order name: Troponin High Sensitivity; Complete Time: 16:37 [facility] 08/31 12:03 Order name: EKG; Complete Time: 12:04 [facility] 08/31 12:03 Order name: Cardiac monitoring; Complete Time: 12:29 [facility] 08/31 12:03 Order name: EKG - Nurse/Tech; Complete Time: 12:29 [facility] 08/31 12:03 Order name: Labs collected and sent; Complete Time: 13:12 [facility] 08/31 12:03 Order name: O2 Sat Monitoring; Complete Time: 12:30 [facility] Administered Medications: 12:38 Drug: Dilaudid (HYDROmorphone) 1 mg Route: IM; Site: right deltoid; jg9 13:58 Follow up: Response: No adverse reaction; Pain is decreased jg9 12:38 Drug: Ondansetron 4 mg Route: PO; jg9 13:57 Follow up: Response: No adverse reaction jg9 15:11 Drug: Dilaudid (HYDROmorphone) 1 mg Route: IM; Site: left deltoid; jg9 15:49 Follow up: Response: RASS: Drowsy (-1) jg9 17:41 Drug: Xopenex (levalbuterol) (3) 1.25 mg Route: Inhalation; ww 18:01 Follow up: Response: No adverse reaction jg9 17:42 Drug: Decadron (dexamethasone) 10 mg Route: IM; Site: right gluteus; ww 18:01 Follow up: Response: No adverse reaction jg9 Disposition: 19:17 Co-signature as Attending Physician, Ramon Baker MD. rn Disposition Summary: 08/31/21 16:48 Discharge Ordered Location: Home [facility] Condition: Stable jmm Diagnosis - Chest pain, unspecified jmm Followup: jmm - With: Private Physician - When: 2 - 3 days - Reason: Recheck today's complaints, Continuance of care, Re-evaluation by your physician Discharge Instructions: - Discharge Summary Sheet jmm - Nonspecific Chest Pain, Adult jmm Forms: - Medication Reconciliation Form jm - Thank You Letter jm - Antibiotic Education jmm - Prescription Opioid Use jm Signatures: Dispatcher [employer] EDMS Lv Boudreaux PA PA jm Ramon Baker MD MD rn Gilmore, Jennifer, RN RN jg9 Tonya Dominguez, ASHLEY RN ww Corrections: (The following items were deleted from the chart) 17:04 16:40 Chest For PE Angio+CT.RAD.BRZ ordered. EDMS EDMS
[2021-08-31] MEDS ORDERED: dexAMETHasone 10 MG/ML VIAL ONE (17:29)
[2021-08-31] MEDS ORDERED: LEVALBUTEROL 1.25 MG/3 ML NEB ONE (17:30)
[2021-08-31 21:14] VITALS: O2SAT 95
[2021-08-31 21:16] VITALS: BP 145/90
--- NOTE | 2021-09-02 11:05 | EKG ---
Test Date: 2021-08-31 Test Time: 11:56:08 Junior Account Manager: CAMDEN MEASUREMENT RESULTS: Intervals: Rate: 57 MD: 182 QRSD: 82 QT: 484 QTc: 471 [place]: P: 63 MD: 182 QRS: 13 T: 21 INTERPRETIVE STATEMENTS: Sinus bradycardia Minimal voltage criteria for LVH, may be normal variant Nonspecific ST and T wave abnormality Prolonged QT Abnormal ECG Compared to ECG 08/28/2021 09:05:03 Left ventricular hypertrophy now present Prolonged QT interval now present Sinus rhythm no longer present Possible ischemia no longer present ST (T wave) deviation still present Electronically Signed On 09-02-21 10:58:12 CDT by Pre Crane
== END 2021-08-31 18:22 | disposition home or self-care (01) ==
LOC: ER 11:50
DX: R07.9 Chest pain, unspecified (principal); R06.02 Shortness of breath; I10 Essential (primary) hypertension; F31.9 Bipolar disorder, unspecified; J44.9 Chronic obstructive pulmonary disease, unspecified; Z21 Asymptomatic human immunodeficiency virus [HIV] infection status; Z20.822 Contact with and (suspected) exposure to COVID-19; Z88.1 Allergy status to other antibiotic agents; Z88.2 Allergy status to sulfonamides; Z88.5 Allergy status to narcotic agent; Z88.8 Allergy status to other drugs, medicaments and biological substances
CPT/HCPCS: 93005; 85025; 80048; 36415; 83735; 85610; 80076; 84484 ×2; 83880; 0240U; 71045; 96372; 99285; J1100; J1170 ×2

== ENCOUNTER 2021-09-11 05:38 | Emergency (ER) | payer OTHER ==
--- OUTSIDE RECORDS SUMMARY | 2021-09-11 05:44 | XMS REPORT | Continuity of Care Document ---
:1955 Author Organization [facility] [place] t Address [address] [place] [address] Care Team Providers Name Role Phone Francisco Rahman Primary Care Physician Ashely Attending Clinician Unavailable PANKAJ Attending Clinician Unavailable Ronald DHILLON Attending Clinician [facility] Attending Clinician Unavailable Ap JENKINS Attending Clinician Doctor Unassigned, Name Attending Clinician Unavailable Yazmin JENKINS Attending Clinician Carol Ann IZQUIERDO M. Attending Clinician Prabhu SANCHEZ Attending Clinician Unavailable Devin [employer] ATTENDANT, R Attending Clinician Clark SANCHEZ Attending Clinician Unavailable Diana SANCHEZ Attending Clinician Unavailable Remigio JENKINS V. Attending Clinician HEMATPOUR Attending Clinician Unavailable DO SYL Attending Clinician Unavailable RahmanKristen bird Admitting Clinician Unavailable Ashely Admitting Clinician Unavailable YAZMIN Admitting Clinician Unavailable DO SYL Admitting Clinician Unavailable Payers Payer Name Policy Type Policy Number Effective Date Expiration Date Christian lloyd [facility] COMM[facility]ITY PLAN [id number] 2012 [employer] 00:00:00 Problems Condition Condition Condition Status Onset Resolution Last Treating Co mments Source Name Details Category Date Date Treatment Clinician Date Gastropare Gastropare Disease Active Overview : Methodi sis sis 4-[address] 00:00: [facility] 00 note l might be different from the original. Added automatic ally from request for surgery [id number] Dysphagia Dysphagia Disease Active Overview: Methodi 4-[address] 00:00: g of this Hospita 00 note l might be different from the original. Added automatic ally from request for surgery [id number] CCL / EPS Diagnosis Active 2020-10-15 Memoria PVI 3-30 17:07:00 l ABLATION CCL / 00:00: [place] W/ CARTO / EPS PVI 00 GA / T ABLATION W/ CARTO / GA / T Active 08/19/2020 [facility] Food Food Disease Active 2019-05 Methodi intoleranc [...] Active 2014-05 Univers 0-03 ity of 00:00: [place] [facility] Hypovolemi Hypovolemi Disease Active 2014-05 U nivers a due to a due to 0-02 [place] of hemorrhage [place] [facility] Chest pain Chest pain Disease Active 2014-05 U nivers 0- ity of 00:00: [place] [facility] 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:00: [place] shoulder shoulder 00 Medica l arthroplas arthroplas Br anch ty ty Posttrauma Posttrauma Disease Active U nivers tic stress tic stress 09-27 it y of disorder disorder 00:00: [place] [facility] 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 00:00: [place] virus virus 00 Medical (HIV) (HIV) Branch disease disease Bipolar 2 Bipolar 2 Disease Active Uni vers disorder disorder 11-18 ity of 00:00: [place] [facility] Chronic Chronic Disease Active Univers hepatitis hepatitis 11-18 ity of C C 00:00: [place] [facility] Hypertensi Hypertensi Disease Active U nivers on on 11-18 ity of 00:00: [place] 00 Medical [facility] Allergies, Adverse Reactions, Alerts Allergy Allergy Status Severity Reaction(s) Onset Inactive Treating Comm ents Source Name Type Date Date Clinician sulfamet DA Active SV N/V [facility] hoxazole 1-25 Clear 00:00: Garcia 00 [facility] trimetho DA Active SV [facility] prim 1-25 Clear 00:00: Garcia 00 [facility] codeine DA Active SV N/V [facility] 1-25 Clear 00:00: Garcia [facility] Metoclop Propensi Active [place] ramide ty to 12-12 Health adverse 00:00: reaction 00 s Butorpha Drug Active Unknown - Unive rs nol Allergy See comments 11-25 ity of 00:00: [place] [facility] Sulfamet Propensi Active UT hoxazole ty to 6-10 Health -Trimeth adverse 00:00: oprim reaction 00 [...] Rash 2015-05 Method i hoxazole ty to 2- st adverse 00:00: Hospita reaction 00 l s to drug Sulfamet Propensi Active Other - See 2015-05 Stomach Univers hoxazole ty to comments 2- pain ity of adverse 00:00: [place] reaction 00 Medical s Branch Metoclop Propensi Active Anxiety Unive rs ramide ty to 9 ity of Hcl adverse 00:00: [place] reaction [...] Date Source Natural [facility] Natural father Diabetes [facility] Natural father Other - see comments [facility] Natural [facility] Natural mother Cancer [facility] Social History Social Habit Start Date Stop Date Quantity Comments Source History [facility] Health Alcohol Comment History of tobacco Smoker Method ist use Hospital History [facility] Alcohol Frequency Hospita l History [facility] Alcohol Std Drinks Hospit al History [facility] Alcohol Binge Hospital Exposure to Not sure University of SARS-CoV-2 (event) [facility] Alcohol intake 2021-07-14 2021-07-14 Ex-drinker [facility] 00:00:00 00:00:00 (finding) Tobacco use and 2020-10-31 2020-10-31 Smokeless tobacco [place] [facility] exposure 00:00:00 00:00:00 non-user Cigarettes smoked 2020-09-05 2020-09-[address] current (pack per 00:00:00 00:00:00 [facility] day) - Reported Cigarette 2020-09-05 2020-09-05 Jain pack-years 00:00:00 00:00:00 Hospital Tobacco Comment 2015-02-14 2015-02-14 Smokes approx 1-2 Un iversity of 00:00:00 00:00:00 cigarettes per [facility] day when she Branch smokes Sex [birth year] [place] [facility] 00:00:00 00:00:00 Smoking Status Start Date Stop Date Source Former smoker 2020-08-06 00:00:00 2020-08-06 00:00:00 [facility] Medications Ordered Filled Start Stop Current Ordering Indication Dosage Frequency Signature Comments Components Source Medication Medication Date Date Medication? Clinician (SIG) Name Name buPROPion Yes [id number] 150mg Take 1 U nivers XL 4-12 tablet by ity of (WELLBUTRIN 00:00: mouth [place] XL) 150 mg 00 daily. Medical 24 hr Branch tablet busPIRone Yes [id number] 30mg Take 1 Un matt 30 mg 4-12 tablet by ity of tablet 00:00: mouth 2 [place] 00 (two) Medical times Branch daily. SERTraline Yes [id number] 200mg Take 2 Univers 100 mg 4-12 tablets by ity of tablet 00:00: mouth [place] 00 daily. Medical Branch raltegravir Yes [id number] 400mg Take 1 Univers (ISENTRESS) 3-28 tablet by ity of 400 mg 00:00: mouth 2 [place] tablet 00 (two) Medical times Branch daily. LORazepam 1 Yes [id number] 1mg Take 1 Univers mg tablet 3-21 tablet by ity o f 00:00: mouth 3 [place] 00 (three) Medical times Branch daily as needed (anxiety). raltegravir Yes 400mg Q.5D Take 400 U T (Isentress) 2-22 mg by Health 400 MG 09:09: mouth 2 tablet 52 (two) times a day. LORazepam 1 2021- No [id number] 1mg Take 1 Univers mg tablet 2-21 [...] 00 times a tablet day. buPROPion 0 2021- No [id number] 150mg Take 1 Univers XL 1-24 04-12 tablet by ity of (WELLBUTRIN 00:00: 00:[place] XL[place] 150 mg 00 :00 daily. Medical 24 hr Branch tablet busPIRone 2021- No [id number] 30mg Take 1 U nivers 30 mg 1-24 04-12 tablet by ity of tablet 00:00: 00:00 mouth 2 [place] 00 :00 (two) Medical times Branch daily. SERTraline 2021- No [id number] 200mg Take 2 Univers 100 mg 1-24 04-12 tablets by ity of tablet 00:00: 00:00 mouth [place] 00 :00 daily. Medical Branch emtricitabi Yes [id number] Take one Univers ne-tenofovi 1-20 po daily ity of r alafen 00:00: [place] (DESCOVY) 00 Medical tablet Branch raltegravir 2021- No [id number] 400mg Take 1 Univers (ISENTRESS) 1-12 03-28 tablet by it y of 400 mg 00:00: 00:00 mouth 2 [place] tablet 00 :00 (two) Medical times Branch daily. metoprolol Yes [id number] Take 1 [facility] tartrate 7-26 tablet Health (Lopressor) 00:00: (100 mg 100 MG 00 total) by tablet mouth 2 (two) times a day AND 0.5 tablets (50 mg total) every night. metoprolol Yes [id number] Take 1 [facility] tartrate 7-26 tablet Health [...] 7-[address] ESTRIL) 40 10:51: (two) Hospit a mg tablet 25 times a l day. metoprolol 0 Yes 100mg Q.5D Take 100 Me thodi tartrate 7-[address] (LOPRESSOR) 10:51: mouth 2 [facility] 100 mg 25 (two) l tablet times a day. amLODIPine Yes 10mg QD Take 10 mg M ethodi (NORVASC) 7-[address] 10 mg 10:51: daily. Hospita tablet 25 l LORAZepam Yes 2mg QD Take 2 mg Met hodi (ATIVAN) 2 7-[address] MG tablet 10:51: nightly as Ho spita 25 needed for l anxiety. sertraline Yes 200mg QD Take 200 Me thodi (ZOLOFT) 7-[address] 100 MG 10:51: mouth Hospita tablet 25 daily. l clobetasol Yes 1{appli Q.5D Apply 1 M ethodi (TEMOVATE) 7-19 cation} applicatio st 0.05 % 10:51: n Hospita ointment 25 topically l 2 (two) times a day. (affected area in groin) hydrALAZINE Yes 50mg Q.[id number] Take 50 mg Methodi (APRESOLINE 7-19 [id number] mouth [address] ) 50 MG 10:51: 3D (three) Hospita tablet 25 times a l day. busPIRone Yes 20mg QD Take 20 mg Me thodi (BUSPAR) 10 7-[address] MG tablet 10:51: nightly. Hosp soren 25 l acetaminoph Yes 1000mg Q.5D Take 1,000 Methodi en 7-[address] (TYLENOL) 10:51: mouth 2 Hospi ta 500 MG 25 (two) l tablet times a day as needed for headaches. albuterol Yes 1{puff} Q4H Inhale 1 M ethodi sulfate 90 7-[address] mcg/actuati 10:51: 4 (four) Ho spita on aero 25 hours as l powdr needed breath act (shortness w/sensor of breath or wheezing). buPROPion Yes 150mg QD Take 150 Met hodi (WELLBUTRIN 7-[address] ) 100 MG 10:51: mouth Hospita tablet 25 daily. l esomeprazol Yes 20mg QD Take 20 mg Methodi e (NexIUM) 7-[address] 20 MG 10:51: daily Hospita capsule 25 before l breakfast. amIODarone 0 Yes 200mg QD Take 200 Me thodi (PACERONE) 7-[address] 200 MG 10:51: mouth Hospita tablet 25 daily. l nystatin-tr Yes [id number] Apply to [facility] 7-06 area(s) 3 ity of cream 00:00: (three) [place] 00 times Medical daily. Branch budesonide- 2020-0 1- No 1{puff} QD Inhale 1 Methodi formoteroL 625 06-[address] (SYMBICORT) 14:37: 00:00 morning. H ospita 160-4.5 02 :00 l mcg/actuati on inhaler hydrALAZINE 0 Yes [id number] 50mg Q.[id number] Take 1 UT (Apresoline 6-11 [id number] tablet (50 Health ) 50 MG 00:00: 3D mg total) tablet 00 by mouth 3 (three) times a day. hydrALAZINE 0 Yes [id number] 50mg Q.[id number] Take 1 UT (Apresoline 6-11 [id number] tablet (50 Health ) 50 MG 00:00: [...] 00:00: ointment 00 mupirocin Yes UT (Bactroban) 5-28 Health 2 % 00:00: ointment 00 nystatin 2020- No [id number] Q.25D Take 5 mL Methodi (MYCOSTATIN 10-06 [...] (two) times a day for 30 days. Amlodipine No Notes: Memor ia 4-10 (Same [...] ia 4-10 (Same as: l 14:00: Zoloft) [place] Sertraline No Notes: Memor ia 4-10 (Same as: l 14:00: Zoloft) [place] pantoprazol No Notes: Caesar lisa e 4-10 Tablet l 14:00: should not [place] 00 be chewed or crushed. (Same as: [...] ia 4-10 (Same as: l 14:00: Zoloft) [place] 00 pantoprazol No Notes: [place] lisa e 4-10 Tablet l 14:00: should not [place] 00 be chewed or crushed. (Same as: Protonix) Amiodarone No Notes: Memor ia 4-10 (Same as: l 14:00: Cordarone) [place] Amlodipine No Notes: Memor ia 4-10 (Same as: l 14:00: Norvasc) [place] emtricitabi No Notes: Caesar lisa ne 200 MG / 4-10 (Same as: l tenofovir 14:00: Descovy) Herm ariel alafenamide 00 Non-formul 25 MG Oral nancy Tablet [Descovy] Sertraline No Notes: Memor ia 4-10 (Same as: l 14:00: Zoloft) [place] pantoprazol No Notes: [place] lisa e 4-10 [...] ia 4-10 (Same as: l 14:00: Zoloft) [place] pantoprazol No Notes: [place] lisa e 4-10 [...] Memoria 4-10 Same as: l 02:00: Eliquis [place] Hydralazine No Notes: [place] lisa Hydrochlori 4-10 (Same as: l de 50 MG 02:00: Apresoline Her mitchell Oral Tablet 00 ) May interfere w/enteral feedings Take With Food Sucralfate No Notes: May M emoria 4-10 interfere l 02:00: w/enteral [place] 00 feeds - Take 1 hr before [...] Memoria 4-10 Same as: l 02:00: Eliquis [place] Hydralazine No Notes: [place] lisa Hydrochlori 4-10 [...] Memoria 4-10 Same as: l 02:00: Eliquis [place] Hydralazine No Notes: Caesar lisa Hydrochlori 4-10 (Same as: l de 50 MG 02:00: Apresoline Her [place] Oral Tablet 00 ) May interfere w/enteral feedings Take With Food Sucralfate No Notes: May M emoria 4-10 interfere l 02:00: w/enteral [place] 00 feeds - Take 1 hr before or 2 hr after antacids, dairy pdt, meals & minerals - On empty stomach. For patients unable to swallow tablet, dissolve in 10mL - 30mL of water or juice and stir before giving. (Same As: Carafate) Saline No Notes: Memoria Flush 0.9% 4-10 (Same as: l 02:00: BD [place] Posiflush) Eliquis No Notes: Memoria 4-10 Same as: l 02:00: Eliquis [place] 00 Hydralazine No Notes: Caesar lisa Hydrochlori 4-10 (Same as: l de 50 MG 02:00: Apresoline Her mit[place] Oral Tablet 00 ) May interfere w/enteral feedings Take With Food Sucralfate No Notes: May M emoria 4-10 interfere l 02:00: w/enteral [place] 00 feeds - Take 1 hr before or 2 hr after antacids, dairy pdt, meals & minerals - On empty stomach. For patients unable to swallow tablet, dissolve in 10mL - 30mL of water or juice and stir before giving. (Same As: Carafate) Saline No Notes: Memoria Flush 0.9% 4-10 (Same as: l 02:00: BD [place] 00 Posiflush) Eliquis No Notes: Memoria 4-10 Same as: l 02:00: Eliquis [place] Hydralazine No Notes: Caesar lisa Hydrochlori 4-10 (Same as: l de 50 MG 02:00: Apresoline Her [place] Oral Tablet 00 ) May interfere w/enteral feedings Take With Food Sucralfate No Notes: May M emoria 4-10 interfere l 02:00: w/enteral [place] 00 feeds - Take 1 hr before or 2 hr after antacids, dairy pdt, meals & minerals - On empty stomach. For patients unable to swallow tablet, dissolve in 10mL - 30mL of water or juice and stir before giving. (Same As: Carafate) Saline No Notes: Memoria Flush 0.9% 4-10 (Same as: l 02:00: BD [place] Posiflush) Eliquis No Notes: Memoria 4-10 Same [...] Memoria 4-10 Same as: l 02:00: Eliquis [place] 00 Hydralazine No Notes: Caesar lisa Hydrochlori 4-10 (Same as: l de 50 MG 02:00: Apresoline Her [place] Oral Tablet 00 ) May interfere w/enteral feedings Take With Food acetaminoph No Notes: Do M emoria en-codeine 4-10 not exceed l #3 00:12: 4gm/day of [place] acetaminop hen. (Same as: Tylenol with Codeine # 3) acetaminoph No Notes: Do M emoria en-codeine 4-10 not exceed l #3 00:12: 4gm/day of [place] acetaminop hen. (Same as: Tylenol with Codeine # 3) acetaminoph No Notes: Do M emoria en-codeine 4-10 not exceed l #3 00:12: 4gm/day of [place] acetaminop hen. (Same as: Tylenol with Codeine # 3) acetaminoph No Notes: Do M emoria en-codeine 4-10 not exceed l #3 00:12: 4gm/day of [place] acetaminop hen. (Same as: Tylenol with Codeine [...] not exceed l #3 00:12: 4gm/day of [place] acetaminop hen. (Same as: Tylenol with Codeine [...] tartrate 4- tab, l 22:00: Route: PO, [place] Drug form: TAB, BID, Dosing Weight 97.273, [...] oria 4-09 tab, l 22:00: Route: PO, [place] Drug form: TAB, BID, Dosing Weight 97.273, [...] oria 4-09 tab, l 22:00: Route: PO, [place] 00 Drug form: TAB, BID, Dosing Weight [...] oria 4-09 tab, l 22:00: Route: PO, [place] 00 Drug form: TAB, BID, Dosing Weight [...] tab, l Tablet 22:00: Route: PO, [place] [facility] Drug form: TAB, BID, Dosing Weight [...] oria 4-09 tab, l 22:00: Route: PO, [place] 00 Drug form: TAB, BID, Dosing Weight [...] Notes: Memoria 4-09 (Same l 17:07: as:MORPhin [place] 00 e Sulfate) Morphine No Notes: Memoria [...] Notes: Memoria - (Same l 17:07: as:MORPhin [place] 00 e Sulfate) Morphine 2020-0 No Notes: Memoria - (Same l 17:07: as:MORPhin [place] 00 e Sulfate) buPROPion 1-0 No 150 [...] 30 tab, 0 coated Refill(s), tablet Pharmacy: [facility] 149, 162.56, cm, 08/29/20 5:30:00 CDT, Height, 97.273, kg, 08/29/20 5:30:00 CDT, Weight pantoprazol 2020-0 Yes 40 mg = 1 M emoria e 40 mg 4-09 tab, PO, l oral 15:27: Daily, # [place] enteric 00 30 tab, 0 coated Refill(s), tablet Pharmacy: [facility] 149, 162.56, cm, 08/29/20 5:30:00 CDT, Height, 97.273, kg, 08/29/20 5:30:00 CDT, Weight pantoprazol 2020-0 Yes 40 mg = 1 M emoria e 40 mg 4-09 tab, PO, l oral 15:27: Daily, # [place] enteric 00 30 tab, 0 coated Refill(s), tablet Pharmacy: [facility] 149, 162.56, cm, 08/29/20 5:30:00 CDT, Height, 97.273, kg, 08/29/20 5:30:00 CDT, Weight pantoprazol 2020-0 Yes 40 mg = 1 M emoria e 40 mg 4-09 tab, PO, l oral 15:27: Daily, # [place] enteric 00 30 tab, 0 coated Refill(s), tablet [facility], 162.56, cm, 08/29/20 5:30:00 CDT, Height, 97.273, kg, 08/29/20 5:30:00 CDT, Weight pantoprazol 1-0 Yes 40 mg = 1 M emoria e 40 mg 4-09 tab, PO, l oral 15:27: Daily, # [place] enteric 00 30 tab, 0 coated Refill(s), tablet [facility] 149, 162.56, cm, 08/29/20 5:30:00 CDT, Height, 97.273, kg, 08/29/20 5:30:00 CDT, Weight pantoprazol 1-0 Yes 40 mg = 1 M emoria e 40 mg 4-09 tab, PO, l oral 15:27: Daily, # [place] enteric 00 30 tab, 0 coated Refill(s), tablet [facility], 162.56, cm, 08/29/20 5:30:00 CDT, Height, 97.273, kg, 08/29/20 5:30:00 CDT, Weight pantoprazol 2020-0 Yes 40 mg = 1 M emoria e 40 mg 4-09 tab, PO, l oral 15:27: Daily, # [place] enteric 00 30 tab, 0 coated Refill(s), tablet [facility], 162.56, cm, 08/29/20 5:30:00 CDT, Height, [...] Skylar nn 00 tab, 0 Refill(s), [facility], 162.56, cm, 08/29/20 5:30:00 CDT, Height, 97.273, kg, 08/29/20 5:30:00 CDT, Weight pantoprazol 2020-0 No 40 mg = 1 M emoria e 40 mg 4-09 tab, PO, l oral 15:26: Daily, # [place] enteric 00 30 tab, 0 coated Refill(s) tablet sucralfate 2020-0 Yes 1 gm = 1 Mem oria 1 g oral 4-09 tab, PO, l tablet 15:26: Q12H, # 28 Skylar nn 00 tab, 0 Refill(s), Pharmacy: [facility] 149, 162.56, cm, 08/29/20 5:30:00 CDT, [...] Skyl[place] nn 00 tab, 0 Refill(s), Pharmacy: [facility] 149, 162.56, cm, 08/29/20 5:30:00 CDT, [...] [place]yl[place] nn 00 tab, 0 Refill(s), Pharmacy: [facility] 149, 162.56, cm, 08/29/20 5:30:00 CDT, [...] Skylar nn 00 tab, 0 Refill(s), Pharmacy: [facility] 149, 162.56, cm, 08/29/20 5:30:00 CDT, [...] Skylar nn 00 tab, 0 Refill(s), Pharmacy: [facility] 149, 162.56, cm, 08/29/20 5:30:00 CDT, Height, 97.273, kg, 08/29/20 5:30:00 CDT, Weight pantoprazol No 40 mg = 1 M emoria e 40 mg 4-09 tab, PO, l oral 15:26: Daily, # [place] enteric 00 30 tab, 0 coated Refill(s) tablet sucralfate Yes 1 gm = 1 Mem oria 1 g oral 4-09 tab, PO, l tablet 15:26: Q12H, # 28 Skyalr nn 00 tab, 0 Refill(s), Pharmacy: [facility] 149, 162.56, cm, 08/29/20 5:30:00 CDT, Height, 97.273, kg, 08/29/20 5:30:00 CDT, Weight Saline No Notes: Memoria Flush 0.9% 4-09 (Same as: l 15:25: BD [place] 00 Posiflush) Lorazepam No Notes: Memori a 4-09 (Same as: l 15:25: Ativan) [place] 00 Saline No Notes: Memoria Flush 0.9% 4-09 (Same as: l 15:25: BD [place] 00 Posiflush) Lorazepam No Notes: Memori a 4-09 (Same as: l 15:25: Ativan) [place] 00 Saline No Notes: Memoria Flush 0.9% 4-09 (Same as: l 15:25: BD [place] 00 Posiflush) Saline No Notes: Memoria Flush 0.9% 4-09 (Same as: l 15:25: BD [place] 00 Posiflush) Lorazepam No Notes: Memori a 4-09 (Same as: l 15:25: Ativan) [place] 00 Lorazepam No Notes: Memori a 4-09 (Same as: l 15:25: Ativan) [place] 00 Saline No Notes: Memoria Flush 0.9% 4-09 (Same as: l 15:25: BD [place] 00 Posiflush) Lorazepam No Notes: Memori a 4-09 (Same as: l 15:25: Ativan) Mraty 00 Saline No Notes: Memoria Flush 0.9% [...] Drug form: l mg + 15:00: INJ, [place] 00 Dosing Weight 97.3, kg, Start date: 08/29/20 10:00:00 CDT, Stop date: 08/29/20 11:00:00 CDT Isuprel HCl No Route: IV, Memoria (ANES) 0.2 4-09 Drug form: l mg + 15:00: INJ, [place] 00 Dosing Weight 97.3, kg, Start date: [...] Drug form: l mg + 15:00: INJ, [place] 00 Dosing Weight 97.3, kg, Start date: [...] Drug form: l mg + 15:00: INJ, [place] 00 Dosing Weight 97.3, kg, Start date: [...] 08-29 Drug form: l 14:49: INJ, ONCE, [place] 00 Stop date: 08/29/20 9:49:00 CDT heparin [...] 08-29 Drug form: l 14:29: INJ, ONCE, [place] 00 Stop date: 08/29/20 9:29:00 CDT propofol 2021-0 No Route: IV, Mem oria (ANES) 08-29 Drug form: l 14:29: INJ, ONCE, Stop date: 08/29/20 9:29:00 CDT propofol 2021-0 No Route: IV, Mem oria (ANES) 08-29 Drug form: l 14:29: INJ, ONCE, [place] 00 Stop date: 08/29/20 9:29:00 CDT propofol 2021-0 No Route: IV, Mem oria (ANES) 08-29 Drug form: l 14:29: INJ, ONCE, [place] 00 Stop date: 08/29/20 9:29:00 CDT propofol 2021-0 No Route: IV, Mem oria (ANES) 08-29 Drug form: l 14:29: INJ, ONCE, Stop date: 08/29/20 9:29:00 CDT heparin 202-0 No Route: IV, Caesar lisa (ANES) 08-29 Drug form: l 14:18: INJ, ONCE, [place] 00 Stop date: 08/29/20 9:18:00 CDT heparin 202-0 No Route: IV, Caesar lisa (ANES) 08-29 Drug form: l 14:18: INJ, ONCE, [place] 00 Stop date: 08/29/20 9:18:00 CDT heparin 202-0 No Route: IV, Caesar lisa (ANES) 08-29 Drug form: l 14:18: INJ, ONCE, Stop date: 08/29/20 9:18:00 CDT heparin 202-0 No Route: IV, Caesar lisa (ANES) 08-29 Drug form: l 14:18: INJ, ONCE, [place] 00 Stop date: 08/29/20 9:18:00 CDT heparin 2021-0 No Route: IV, Caesar lisa (ANES) 08-29 Drug form: l 14:18: INJ, ONCE, Stop date: 08/29/20 9:18:00 CDT heparin 202-0 No Route: IV, Caesar lisa (ANES) 08-29 Drug form: l 14:18: INJ, ONCE, [place] 00 Stop date: 08/29/20 9:18:00 CDT heparin [...] 08-29 Route: PO, l 14:01: Drug form: [place] 00 TAB, ONCE, Dosing Weight 97.273, kg, [...] oria ne 08-29 Route: l 14:01: IVP, [place] 00 Q5Min, Dosing Weight 97.273, kg, PRN [...] Memori a 08-29 Route: l 14:01: IVP, [place] 00 Q2MIN, Dosing Weight 97.273, kg, PRN Narcotic Reversal, Start date: 08/29/20 9:01:00 CDT, Duration: 8 doses or times, Stop date: Limited # of times Ondansetron 1-0 No 4 mg, Memor ia 08-29 Route: l 14:01: IVP, ONCE, [place] 00 Dosing Weight 97.273, kg, PRN Nausea & Vomiting, Start date: 08/29/20 9:01:00 CDT Labetalol 1-0 No 10 mg, Memori a 08-29 Route: l 14:01: IVP, [place] 00 Q5Min, Dosing Weight 97.273, kg, PRN [...] lisa 08-29 Route: l 14:01: IVP, PRN, [place] 00 Dosing Weight 97.273, kg, PRN Benzodiaze [...] ia 08-29 Route: l 14:01: IVP, ONCE, [place] 00 Dosing Weight 97.273, kg, PRN Nausea & Vomiting, Start date: 08/29/20 9:01:00 CDT Labetalol 1-0 No 10 mg, Memori a 08-29 Route: l 14:01: IVP, [place] 00 Q5Min, Dosing Weight 97.273, kg, PRN Elevated BP, Start date: 08/29/20 9:01:00 CDT, Duration: 5 doses or times, Stop date: Limited # of times Acetaminoph 1-0 No 1,000 mg, M emoria en 08-29 Route: PO, l 14:01: Drug form: [place] 00 TAB, ONCE, Dosing Weight 97.273, kg, [...] lisa 08-29 Route: l 14:01: IVP, PRN, [place] 00 Dosing Weight 97.273, kg, PRN Benzodiaze pine Reversal, Initial dose, Start date: 08/29/20 9:01:00 CDT, Duration: 30 day, Stop date: 09/28/20 9:00:00 CDT Naloxone 1-0 No 0.4 mg, Memori a 08-29 Route: l 14:01: IVP, [place] 00 Q2MIN, Dosing Weight 97.273, kg, PRN [...] de 5 MG 14:01: Drug form: Herm arile Oral Tablet 00 TAB, Q4H, Dosing Weight 97.273, kg, PRN Pain Score 4-6, Start date: 08/29/20 9:01:00 CDT, Duration: 30 day, Stop date: 09/28/20 9:00:00 CDT Hydromorpho 1-0 No 0.5 mg, Mem oria ne 08-29 Route: l 14:01: IVP, [place] 00 Q5Min, Dosing Weight 97.273, kg, PRN Pain Score 7-10, Start date: 08/29/20 9:01:00 CDT, Duration: 4 doses or times, Stop date: Limited # of times Labetalol 2021-0 No 10 mg, Memori a 08-29 Route: l 14:01: IVP, [place] 00 Q5Min, Dosing Weight 97.273, kg, PRN [...] oria ne 08-29 Route: l 14:01: IVP, [place] 00 Q5Min, Dosing Weight 97.273, kg, PRN Pain Score 7-10, Start date: 08/29/20 9:01:00 CDT, Duration: 4 doses or times, Stop date: Limited # of times Flumazenil 1-0 No 0.2 mg, Caesar lisa 08-29 Route: l 14:01: IVP, PRN, [place] 00 Dosing Weight 97.273, kg, PRN Benzodiaze pine Reversal, Initial dose, Start date: 08/29/20 9:01:00 CDT, Duration: 30 day, Stop date: 09/28/20 9:00:00 CDT Naloxone 1-0 No 0.4 mg, Memori a 08-29 Route: l 14:01: IVP, [place] 00 Q2MIN, Dosing Weight 97.273, kg, PRN Narcotic Reversal, Start date: 08/29/20 9:01:00 CDT, Duration: 8 doses or times, Stop date: Limited # of times Flumazenil 2021-0 No 0.2 mg, Caesar lisa 08-29 Route: l 14:01: IVP, PRN, [place] 00 Dosing Weight 97.273, kg, PRN Benzodiaze pine Reversal, Initial dose, Start date: 08/29/20 9:01:00 CDT, Duration: 30 day, Stop date: 09/28/20 9:00:00 CDT Ondansetron 2021-0 No 4 mg, Memor ia 08-29 Route: l 14:01: IVP, ONCE, [place] 00 Dosing Weight 97.273, kg, PRN Nausea & Vomiting, Start date: 08/29/20 9:01:00 CDT Naloxone 2021-0 No 0.4 mg, Memori a 08-29 Route: l 14:01: IVP, [place] 00 Q2MIN, Dosing Weight 97.273, kg, PRN Narcotic Reversal, Start date: 08/29/20 9:01:00 CDT, Duration: 8 doses or times, Stop date: Limited # of times Ondansetron 2021-0 No 4 mg, Memor ia 08-29 Route: l 14:01: IVP, ONCE, [place] 00 Dosing Weight 97.273, kg, PRN Nausea & Vomiting, Start date: 08/29/20 9:01:00 CDT Labetalol 1-0 No 10 mg, Memori a 08-29 Route: l 14:01: IVP, [place] 00 Q5Min, Dosing Weight 97.273, kg, PRN [...] oria ne 08-29 Route: l 14:01: IVP, [place] 00 Q5Min, Dosing Weight 97.273, kg, PRN Pain Score 7-10, Start date: 08/29/20 9:01:00 CDT, Duration: 4 doses or times, Stop date: Limited # of times Flumazenil 1-0 No 0.2 mg, Caesar lisa 08-29 Route: l 14:01: IVP, PRN, [place] 00 Dosing Weight 97.273, kg, PRN Benzodiaze pine Reversal, Initial dose, Start date: 08/29/20 9:01:00 CDT, Duration: 30 day, Stop date: 09/28/20 9:00:00 CDT Naloxone 1-0 No 0.4 mg, Memori a 08-29 Route: l 14:01: IVP, [place] 00 Q2MIN, Dosing Weight 97.273, kg, PRN [...] Memori a 08-29 Route: l 14:01: IVP, [place] 00 Q5Min, Dosing Weight 97.273, kg, PRN [...] oria ne 08-29 Route: l 14:01: IVP, [place] 00 Q5Min, Dosing Weight 97.273, kg, PRN [...] Memori a 08-29 Route: l 14:01: IVP, [place] 00 Q2MIN, Dosing Weight 97.273, kg, PRN [...] 08-29 Drug form: l 13:42: INJ, ONCE, [place] Stop date: 08/29/20 8:42:00 CDT fentaNYL 2020-0 No Route: IV, Mem oria (ANES) 08-29 Drug form: l 13:42: INJ, ONCE, [place] Stop date: 08/29/20 8:42:00 CDT fentaNYL 2020-0 No Route: IV, Mem oria (ANES) 08-29 Drug form: l 13:42: INJ, ONCE, [place] Stop date: 08/29/20 8:42:00 CDT norepinephr 2020-0 [...] Drug form: l 10 13:15: INJ, Start [place] microgram date: 08/29/20 8:15:00 CDT, Stop date: 08/29/20 9:15:00 CDT norepinephr 2020-0 No Route: IV, Memoria ine (ANES) 08-29 Drug form: l 10 13:15: INJ, Start [place] microgram date: 08/29/20 8:15:00 CDT, Stop date: 08/29/20 9:15:00 CDT norepinephr 2020-0 No Route: IV, Memoria ine (ANES) 08-29 Drug form: l 10 13:15: INJ, Start [place] microgram date: 08/29/20 8:15:00 CDT, Stop date: 08/29/20 9:15:00 CDT norepinephr 2020-0 No Route: IV, Memoria ine (ANES) 4- Drug form: l 10 13:15: INJ, Start [place] microgram 00 date: 08/29/20 8:15:00 CDT, Stop date: 08/29/20 9:15:00 CDT norepinephr 2020-0 No Route: IV, Memoria ine (ANES) 4- Drug form: l 10 13:15: INJ, Start [place] microgram 00 date: 08/29/20 8:15:00 CDT, Stop date: 08/29/20 9:15:00 CDT Sodium 2020-0 No Route: IV, Memor ia Chloride 4-09 Total l 0.9% IV 12:30: Volume: [place] (ANES) 1000 00 1,000, mL Start date: 08/29/20 7:30:00 CDT, Stop date: 08/29/20 8:30:00 CDT Sodium 2020-0 No Route: IV, Memor ia Chloride 4-09 Total l 0.9% IV 12:30: Volume: [place] (ANES) 1000 00 1,000, mL Start date: 08/29/20 7:30:00 CDT, Stop date: 08/29/20 8:30:00 CDT Sodium 2021-0 No Route: IV, Memor ia Chloride 4-09 Total l 0.9% IV 12:30: Volume: [place] (ANES) 1000 00 1,000, mL Start date: 08/29/20 7:30:00 CDT, Stop date: 08/29/20 8:30:00 CDT Sodium 202-0 No Route: IV, Memor ia Chloride 4-09 Total l 0.9% IV 12:30: Volume: [place] (ANES) 1000 00 1,000, mL Start date: [...] PO, l Hydrochlori 11:42: Q24H, # 30 [place] de 150 MG 00 tab, 0 Extended Refill(s) Release Tablet 24 HR Yes 150 mg = 1 Memori a Bupropion 4-09 tab, PO, l Hydrochlori 11:42: Q24H, # 30 Marty de 150 MG 00 tab, 0 Extended Refill(s) Release Tablet 24 HR Yes 150 mg = 1 Memori a Bupropion - tab, PO, l Hydrochlori 11:42: Q24H, # 30 [place] de 150 MG 00 tab, 0 Extended Refill(s) Release Tablet 24 HR Yes 150 mg = 1 Memori a Bupropion -09 tab, PO, l Hydrochlori 11:42: Q24H, # 30 Marty de 150 MG 00 tab, 0 Extended Refill(s) Release Tablet 24 HR Yes 150 mg = 1 Memori a Bupropion -09 tab, PO, l Hydrochlori 11:42: Q24H, # 30 [place] de 150 MG 00 tab, 0 Extended Refill(s) Release Tablet 24 HR Yes 150 mg = 1 Memori a Bupropion -09 tab, PO, l Hydrochlori 11:42: Q24H, # 30 [place] de 150 MG 00 tab, 0 Extended Refill(s) Release Tablet apixaban Yes 5 mg, PO, Me moria MG Oral 4-09 Q12H, tab, l Tablet 11:41: 0 Marty [Eliquis] 00 Refill(s), For Atrial Fibrilatio n apixaban Yes 5 mg, PO, Me moria MG Oral 4-09 Q12H, tab, l Tablet 11:41: 0 [place] [Eliquis] 00 Refill(s), For Atrial Fibrilatio n apixaban 2020-0 Yes 5 mg, PO, Me moria MG Oral 08-29 Q12H, tab, l Tablet 11:41: 0 [place] [Eliquis] 00 Refill(s), For Atrial Fibrilatio n [...] 08-29 Q12H, tab, l Tablet 11:41: 0 [place] [Eliquis] 00 Refill(s), For Atrial Fibrilatio n apixaban 5 2020-0 Yes 5 mg, PO, Me moria MG Oral 08-29 Q12H, tab, l Tablet 11:41: 0 [place] [Eliquis] 00 Refill(s), For Atrial Fibrilatio n AMIODarone 0 Yes 200 mg = 1 M emoria 200 mg oral 08-29 tab, PO, l tablet 11:38: Daily, # [place] 00 90 tab, 3 Refill(s) AMIODarone 0 Yes 200 mg = 1 M emoria 200 mg oral - tab, PO, l tablet 11:38: Daily, # [place] 00 90 tab, 3 Refill(s) AMIODarone 0 Yes 200 mg = 1 M emoria 200 mg oral -09 tab, PO, l tablet 11:38: Daily, # [place] 00 90 tab, 3 Refill(s) AMIODarone 2020-0 Yes 200 mg = 1 M emoria 200 mg oral -09 tab, PO, l tablet 11:38: Daily, # Marty 00 90 tab, 3 Refill(s) AMIODarone 0 Yes 200 mg = 1 M emoria 200 mg oral - tab, PO, l tablet 11:38: Daily, # [place] 00 90 tab, 3 Refill(s) AMIODarone Yes [...] 3-13 Health 20 MG 00:00: tablet 00 buPROPion 0 Yes bupropion [...] mg Health MG tablet 00:00: tablet 00 hydralAZINE 2019-05 Yes 25mg Take 25 mg [...] capsule 41 times Medical daily. Branch albuterol 0 Yes Univers 90 4-14 [...] Filled Immunization Date Status Comments [facility] e Immunization Name Name PFIZER COVID-19 2020-07-23 Completed [facility] VACCINATION 00:00:00 Hospital PFIZER COVID-19 2020-07-02 Completed [facility] MRNA VACCINATION 00:00:00 [facility] Influenza Virus 2017-03-08 Completed Universit y of Vaccine 00:00:00 [facility] Influenza Virus 2014-01-30 Completed Universit y of Vaccine (3+ yrs) 00:00:00 [facility] dical Branch Pneumococcal 13 2014-01-30 Completed Universit y of Conjugate, PCV13 00:00:00 [facility] dical (Prevnar 13) Branch Pneumococcal 2012-02-16 Completed University o f Polysaccharide, 00:00:00 [place] [facility] PPSV23 (PNEUMOVAX) Branch Influenza Virus 2012-02-16 Completed Universit y of Vaccine 00:00:00 [facility] PPD (TB) 2012-02-16 Completed University of 00:00:00 [facility] Hep B, Adol or Pedi 2011-09-01 Completed Unive rsity of Dosage 00:00:00 [facility] Hep B, Adol or Pedi 2011-03-17 Completed Unive rsity of Dosage 00:00:00 [facility] Influenza Virus 2011-02-10 Completed Universit y of Vaccine 00:00:00 [facility] Hep B, Adol or Pedi 2011-02-10 Completed Unive rsity of Dosage 00:00:00 [facility] PPD (TB) 2010-11-18 Completed University of 00:00:00 [facility] TDAP (ADACEL) 2010-11-18 Completed University of VACCINE 00:00:00 [facility] HEPATITIS A 2004-03-02 Completed University of 00:00:00 [facility] HEPATITIS A 2003-08-01 Completed University of 00:00:00 [facility] Pneumococcal 2001-10-04 Completed University o f Polysaccharide, 00:00:00 [place] [facility] ical PPSV23 (PNEUMOVAX) Branch PPD (TB) 2001-10-04 Completed University of 00:00:00 [facility] Vital Signs Vital Name Observation Time Observation Value Comments Source Systolic blood 2021-07-14 15:18:00 142 mm[Hg[facility] Diastolic blood 2021-07-14 15:18:00 76 mm[Hg] [facility] Heart rate 2021-07-14 15:18:00 61 /min [facility] Body height 2021-07-14 15:18:00 162.6 cm [facility] Body weight 2021-07-14 15:18:00 94.802 kg [facility] BMI 2021-07-14 15:18:00 35.87 kg/m2 [facility] Systolic blood 2021-08-21 13:13:00 191 mm[Hg] Univer sity of pressure [facility] Diastolic blood 2021-08-21 13:13:00 99 mm[Hg] Unive rsity of [facility] Heart rate 2021-08-21 13:13:00 52 /min [facility] Body temperature 2021-08-21 13:11:00 36.5 Amina [facility] 2021-08-21 13:11:00 16 /min [facility] height 2021-08-21 13:11:00 162.6 cm [facility] Body weight 2021-08-21 13:11:00 93.759 kg [facility] BMI 2021-08-21 13:11:00 35.48 kg/m2 [facility] Oxygen saturation in 2021-08-21 13:11:00 95 /min [facility] Arterial blood by [facility] Pulse oximetry [place] Systolic blood 2020-12-08 15:48:00 125 mm[Hg] Method [facility]3] pressure Diastolic blood 2020-12-08 15:48:00 76 mm[Hg] [facility] pressure Heart rate 2020-12-08 15:48:00 64 /min [facility] Body temperature 2020-12-08 15:48:00 36.61 Amina [facility] Respiratory rate 2020-12-08 15:48:00 17 /min [facility] Body height 2020-12-08 15:48:00 162.6 cm [facility] Body weight 2020-12-08 15:48:00 98.884 kg [facility] BMI 2020-12-08 15:48:00 37.42 kg/m2 [facility] Oxygen saturation in 2020-12-08 15:48:00 97 /min [facility] Arterial blood by Pulse oximetry Diastolic (mm Hg) 2020-08-30 13:00:00 Mem orial [place] Respitory Rate 2020-08-30 13:00:00 Memori al [place] Systolic (mm Hg) 2020-08-30 13:00:00 Caesar rial [place] Systolic (mm Hg) 2020-08-30 11:00:00 Caesar rial [place] Diastolic (mm Hg) 2020-08-30 11:00:00 Mem orial [place] Temperature Oral (F) 2020-08-30 11:00:00 98.4 F [facility] [place] Respitory Rate 2020-08-30 11:00:00 Memori al [place] Respitory Rate 2020-08-30 10:00:00 Memori al [place] Systolic (mm Hg) 2020-08-30 10:00:00 Caesar rial [place] Diastolic (mm Hg) 2020-08-30 10:00:00 Mem orial [place] Temperature Oral (F) 2020-08-30 00:00:00 96.9 F [facility] [place] Temperature Oral (F) 2020-08-29 11:26:00 97.6 F [facility] [place] Height 2020-08-29 10:30:00 162.56 cm [facility] Weight 2020-08-29 10:30:00 [facility] [place] BMI Calculated 2020-08-29 10:30:00 Memori al [place] Procedures Procedure Date / Time Performing Clinician Source Performed ECG 12-LEAD 2021-07-14 15:14:00 Elan Lira [facility] [id number] 2021-06-17 00:00:00 RIKY Freedman [facility] CONSENT/REFUSAL FOR 2021-06-15 16:11:59 Doctor Unassigned, Unive [facility] DIAGNOSIS AND TREATMENT [place] [facility] [place] ASSIGNMENT OF BENEFITS 2021-06-15 16:11:40 [facility] [place] [facility] GASTROINTESTINAL PANEL 2020-12-08 22:21:00 Eliseo Glaser [facility] XR ABDOMEN 1 VW 2020-12-08 18:06:32 Eliseo Glaser [facility] OR [place] < 1 HOUR 2020-09-05 22:39:00 Eliseo Glaser [facility] SURGICAL PATHOLOGY REQUEST 2020-09-05 21:54:00 Eliseo Glaser [facility] XR CHEST 1 VW PORTABLE 2020-09-05 19:55:00 Eliseo Glaser [facility] DISCHARGE PATIENT 2020-09-05 17:27:55 Lucas Harris [facility] HI AN ELECTIVE 2020-09-05 16:47:[address] [facility] ENDOTRACHEAL AIRWAY EGD, INTRAOPERATIVE 2020-09-05 16:27:00 Eliseo Glaser [facility] PARTIAL THROMBOPLASTIN 2020-09-05 [facility] TIME (PTT[facility] M. PROTHROMBIN TIME WITH INR 2020-09-05 15:04:[address] [facility]. Plan of Care Planned Activity Planned Date Details Comments Source Future Scheduled 2021-08-26 Screening for [facility] Test 13:02:23 malignant neoplasm of cervix (procedure) [code = 142520470] Future Scheduled 2021-08-26 BREAST CANCER [facility] Test 13:02:23 SCREENING [code = BREAST CANCER SCREENING] Future Scheduled 2021-08-26 COLONOSCOPY SCREENING [facility] Test 13:02:23 [code = COLONOSCOPY SCREENING] Future Scheduled 2021-08-26 Screening for [facility] Test 13:02:23 malignant neoplasm of lung (procedure) [code = 415068071] Future Scheduled 2021-08-26 SHINGLES VACCINES (#1) [facility] Test 13:02:23 [code = SHINGLES VACCINES (#1)] Future Scheduled 2021-08-26 COVID-19 VACCINE (3 - [facility] Test 13:02:23 Pfizer risk 4-dose series) [code = COVID-19 VACCINE (3 - Pfizer risk 4-dose series)] Future Scheduled 2021-08-[address] [facility] Test 13:02:23 VACCINE (4 of 4 - PPSV23) [code = 65+ PNEUMOCOCCAL VACCINE (4 of 4 - PPSV23)] Future Scheduled 2021-08-26 INFLUENZA VACCINE [facility] Test 13:02:23 [code = INFLUENZA VACCINE] Encounters Start End Encounter Admission Attending Care Care Encounter Source Date/Time Date/Time Type Type Clinicians Facility Department ID 2021-08-03 Inpatient Ashely [facility] OUTD [id number] [facility] 11:30:00 Mike [id number] [facility] 2021-07-14 Outpatient PANKAJ [facility] [id number] [place] 09:33:51 [facility] 2021-06-16 Inpatient RAUL Lund [facility] OUTD [id number] [facility] 08:30:00 Mike [id number] [facility] 2021-06-15 Inpatient RAUL Lund [facility] OUTD [id number] [facility] 10:30:00 Mike [id number] [facility] 2021-08-21 2021-08-21 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 Santiago Cardenas 1.2.840.1 [id number] Univers 10:45:00 10:45:00 Visit [facility] 04452.1.1 ity of 3.104.2.7 [place] .3.078307 Medica l .8 [place] 2021-08-21 2021-08-21 Office Ronald, 1.2.840.0 [id number] Univers 08:30:00 09:00:00 Visit Santiago 16558.1.1 ity of 3.104.2.7 [place] .3.409010 Medica l .8 [place] 2021-08-21 2021-08-21 Travel 1.2.840.1 1.2.668.658 [id number] Univers 00:00:00 00:00:00 70220.1.1 350.1.13.10 ity of 3.104.2.7 4.[place].7.3.698 [place] .3.115190 084.8 Medica l .8 Branch 2021-08-14 2021-08-14 Telephone Ronald, 1.2.840.9 [id number] Univers 00:00:00 00:00:00 Santiago 17077.1.1 ity of 3.104.2.7 [place] .3.546881 Medica l .8 Branch 2021-08-13 2021-08-13 Telephone Ronald, 1.2.840.[id number] [facility] 00:00:00 00:00:00 Santiago 70585.1.1 ity of 3.104.2.7 [place] .3.659185 Medica l .8 Branch 2021-08-05 2021-08-05 Outpatient WINTER LealCL [id number] [facility] 05:24:00 05:24:00 Mike 31 [facility] 2021-08-05 2021-08-05 Outpatient WINTER Leal [facility] [id number] [facility] 05:24:00 05:24:00 Mike [id number] [facility] 2021-07-14 2021-07-14 Office Pankaj, UTP 6400 1.2.840.114 [id number] [place] 08:45:00 09:34:[address] 350.1.13.58 Health 9.2.7.2.686 [id number] 1 2021-07-09 2021-07-09 Telephone Ap, UTP 6400 1.2.840.114 [id number] [place] 00:00:00 00:00:[address] 350.1.13.58 Health 9.2.7.2.686 [id number] 1 2021-06-17 2021-06-17 Inpatient EDUARDO LealCL INTE.02 [id number] [facility] 10:56:00 14:36:00 Mike [id number] [facility] 2021-06-17 2021-06-17 Inpatient EDUARDO LealCL INTE.02 [id number] [facility] 10:56:00 14:36:00 Mike 47 [facility] 2021-06-15 2021-06-15 Orders Doctor 1.2.840.5 [id number] Univers 00:00:00 00:00:00 Only Unassigned, 15179.1.1 ity of [place] 3.104.2.7 [place] .3.510510 Medica l .8 Branch 2021-06-15 2021-06-15 Travel 1.2.840.[id number] [facility] 00:00:00 00:00:00 88473.1.1 350.1.13.10 ity of 3.104.2.7 4.[place].7.3.698 [place] .3.012304 084.8 Medica l .8 Branch 2021-06-11 2021-06-11 Refill [place], 1.2.840.8 [id number] Univers 00:00:00 00:00:00 Santiago 59221.1.1 ity of 3.104.2.7 [place] .3.675540 Medica l .8 Branch 2021-04-28 2021-04-28 Telephone Jeredimasaleshia, 1.2.840.7 [id number] Methodi 00:00:00 00:00:[address] 3.430.2.7 Hospit a .3.699864 l .8 2021-03-31 2021-03-31 Orders Carol Ann 1.2.840.1 [id number] Methodi 00:00:00 00:00:00 Only Sarai Lieberman 77159.1.1 979 s t 3.430.2.7 Hospit a .3.705453 l .8 2021-03-24 2021-03-24 Telephone Yazmin, 1.2.840.2 [id number] Methodi 00:00:00 00:00:[address] 3.430.2.7 Hospit a .3.097299 l .8 2021-01-19 2021-01-19 Telephone Pelletier, 1.2.840.1 [id number] 2100 [id number] Methodi 00:00:00 00:00:[address] 3.430.2.7 Hospit a .3.061015 l .8 2020-12-12 2020-12-12 Office Hematpour, [facility] 6400 1.2.840.114 12 [id number] 07:42:02 08:18:[address] 350.1.13.58 9.2.7.2.686 [id number] 1 2020-12-09 2020-12-09 [facility], 1.2.840.1 [id number] Methodi 00:00:00 00:00:00 Sarai Lieberman 43889.1.1 316 s t 3.430.2.7 Hospit a .3.240780 l .8 2020-12-08 2020-12-08 [facility], 1.2.840.1 [id number] [id number] Methodi 12:35:54 23:59:00 Encounter Ray 97015.1.[address] 3.430.2.7 Hospit a .3.780378 l .8 2020-12-08 2020-12-08 Lab [facility], 1.2.840.1 [id number] Methodi 17:25:00 17:30:[address] 3.430.2.7 Hospit a .3.497181 l .8 2020-12-08 2020-12-08 Office [facility], 1.2.840.1 [id number] Methodi 10:30:00 11:39:56 Visit Ray 52697.1.[address] 3.430.2.7 Hospit a .3.835445 l .8 2020-12-08 2020-12-08 Travel 1.2.840.1 1.2.574.901 [id number] [id number] Methodi 00:00:00 00:00:[address] 3.430.2.7 0.2.7.3.698 Ho spita .3.664239 084.8 l .8 2020-12-02 2020-12-02 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 350.1.13.10 REGIONAL 4.2.7.2.686 MATERNAL [id number] & CHILD 107 [place] 2020-11-25 2020-11-25 [facility] 1.2.070.371 [id number] 00:00:00 00:00:00 [facility] 350.1.13.10 [facility] 4.2.7.2.686 [id number] 2020-11-25 2020-11-25 Telephone [facility] 1.2.267.123 [id number] 00:00:00 00:00:00 Eligiomeredith R 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 350.1.13.10 [facility] 4.2.7.2.686 MATERNAL [id number] & CHILD 107 [place] 2020-11-14 2020-11-14 Abstract Clark, 1.2.840.1 [id number] Methodi 00:00:00 00:00:[address] 3.430.2.7 Hospit a .3.762760 l .8 2020-11-14 2020-11-14 Telephone Clark 1.2.840.1 [id number] Methodi 00:00:00 00:00:[address] 3.430.2.7 Hospit a .3.601900 l .8 2020-11-07 2020-11-07 Telephone Diana [facility] 6400 1.2.840.114 [id number] 00:00:00 00:00:[address] 350.1.13.58 9.2.7.2.686 [id number] 1 2020-10-27 2020-10-27 Telephone Yazmin 1.2.840.5 [id number] Methodi 00:00:00 00:00:[address] 3.430.2.7 Hospit a .3.087198 l .8 2020-10-24 2020-10-24 Telephone [facility], 1.2.840.1 [id number] [id number] Methodi 00:00:00 00:00:[address] 3.430.2.7 Hospit a .3.446926 l .8 2020-10-06 2020-10-[facility] 1.2.840.1 [id number] Methodi 15:30:00 00:08:46 ne Ray 46653.1.[address] 3.430.2.7 Hospit a .3.686473 l .8 2020-09-30 2020-09-30 Telephone [facility], 1.2.840.6 [id number] Methodi 00:00:00 00:00:[address] 3.430.2.7 Hospit a .3.299829 l .8 2020-09-21 2020-09-21 Travel 1.2.840.1 1.2.113.490 [id number] [id number] Methodi 00:00:00 00:00:[address] 3.430.2.7 0.2.7.3.698 Ho spita .3.142143 084.8 l .8 2020-09-06 2020-09-06 [facility] 1.2.840.1 [id number] Methodi 17:42:30 23:59:[address] 3.430.2.7 Hospit a .3.050624 l .8 2020-09-06 2020-09-06 [facility], 1.2.840.1 [id number] Methodi 16:50:00 17:41:00 Encounter Ray [address]07.1.[address] 3.430.2.7 Hospit a .3.208846 l .8 2020-09-05 2020-09-05 [facility], 1.2.840.1 [id number] [id number] Methodi 09:17:00 19:45:00 Encounter Ray [address]23.1.[address] 3.430.2.7 Hospit a .3.237420 l .8 2020-09-05 2020-09-05 Surgery Chihara, 1.2.840.1 [id number] Methodi 11:30:00 13:15:[address] 3.430.2.7 Hospit a .3.048389 l .8 2020-09-05 2020-09-05 Anesthesia Remigio, 1.2.840.1 [id number] Methodi 11:27:00 12:20:00 Event Sarvalentinawathi 34863.1.1 243 s t V. 3.430.2.7 Hospit a .3.179300 l .8 2020-09-05 2020-09-05 Travel 1.2.840.1 1.2.641.222 [id number] Methodi 00:00:00 00:00:[address] 3.430.2.7 0.2.7.3.698 Ho spita .3.106927 084.8 l .8 2020-09-04 2020-09-04 Telephone [place], 1.2.840.1 [id number] Methodi 00:00:00 00:00:00 Sarai M. 10477.1.1 762 s t 3.430.2.7 Hospit a .3.124954 l .8 2020-09-02 2020-09-02 Telephone [place], 1.2.840.1 [id number] Methodi 00:00:00 00:00:00 Sarai M. 21292.1.1 344 s t 3.430.2.7 Hospit a .3.120039 l .8 2020-08-29 2020-08-30 Bedded [facility] [id number] 275 [facility] 10:20:00 14:10:00 Outpatient r [place] [facility] [place] 2020-08-29 2020-08-30 Outpatient [facility] 05:20:00 09:10:00 REGINAASH Results Test Description Test Time Test Comments Results Result Comments Source Novel Coronavirus 2019 Inhouse 2021-08-03 18:08:00 Test Item Value Reference Range Interpretation Comme nts Novel Coronavirus 2018 Negative Negative Posit bruno results are indicative of the Inhouse (test code = presenc e wgJQXR-XeP-8 RNA, clinical COVNONPUI) correlation wit h patient [...] qualitative detection of nucleic acid s from dbwBPJI-LmC-0 virus and diagn osis of SARS-CoV-2 virusinfection. It is an Emergency Use Authorization ( EUA) testauthorized by the [place] FDA. BASIC METABOLIC [id number] 09:37:00 Test Item Value Reference Range Interpretation [...] = 9.0 mg/dL 8.0-10.5 N CA) PROTHROMBIN [id number] 09:32:00 Test Item Value Reference Range Interpretation [...] o prevent recurre nt infarct). 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 [facility] - XR CHEST 1 [id number] 00:00:00 [facility] 1955 Sex: F FAX: Michael McqueenUrmila birdGregoriaFrancisco H [phone] [place]: St: ADM FAX: Jean Paul Scales MD [phone] FAX: Bahman Chopra [phone] Name: [facility] [place] : 1955 Age/S: 66/F [address] [place] [address] Unit #: [id number] Loc: [place] [address] Phys: Bahman Chopra [facility] Acct: [id number] Dis Date: Status:ADM IN PHONE #: [phone] Exam Date: 06/17/2021 1320 FAX #: [phone] Reason: WATCHMAN EXAMS: CPT CODE: [id number] XR CHEST 1 V 94042 PROCEDURE INFORMATION: Exam: XR Chest Examdate and [...] Mike Lund MD; Bahman Chopra Technologist: RT Taylor(Marika) Trnscrd Date/Time/By: 06/17/2021 (8950) : By: [email or web address] Orig Print D/T: S: 06/17/2021 (3052) PAGE 1 Signed ReportCOVID 19 Asymptomatic IH [id number] 12:29:00 Test Item Value Reference Range Interpretation [...] perform moderate, high or waivedcomplexit y tests. SSYFBJOBZW3484-88-17 11:37:00 Test Item Value Reference Range Interpretation Comments PREALBUMIN (test code = PREALB) 24.3 mg/dL 16.0-40.0 N BASIC METABOLIC [id number] 11:37:00 Test Item Value Reference Range Interpretation [...] = 9.0 mg/dL 8.0-10.5 N CA) PROTHROMBIN [id number] 11:03:00 Test Item Value Reference Range Interpretation [...] o prevent recurre nt infarct). CBC W/AUTO [id number] 10:59:00 Test Item Value Reference Range Interpretation [...] 0.00 x10 3/uL 0.0-0.1 N NRBC#) - CHEST 2 [id number] 00:00:00 [facility] 1955 Sex: F FAX: Lele Olivera DO [phone] [place]: St: PRE FAX: Jean Paul Scales MD [phone] Name: LIO WATTS [facility] : 1955 Age/S: 66/F [address] [place] [address] Unit #: [id number] Loc: [place] [address] Phys: Mike Lund [facility]IANcct: [id number] Dis Date: Status: PRE SDC PHONE #: [phone] Exam Date: 06/16/2021 1120 FAX #: [phone] Reason: PREOP EXAMS: CPT CODE: [id number] XR CHEST 2 V 90480 PROCEDURE INFORMATION: Exam: XR Chest Exam date [...] Lele Rahman DO; Mike Lund MD Technologist: Danielle Nix RT(R) Trnscrd Date/Time/By: 06/16/2021 (1138) : By: [email or web address] Orig Print D/T: S: 06/16/2021 (5936) PAGE 1 Signed ReportGastrointestinal [id number] 04:35:05 Test Item Value Reference Interpretation Comments [...] Rotavirus PCR (test Not Detected code = 3301494) Salmonella PCR (test Not Detected code = [...] PCR Not Detected (test code = 7124) [facility] youokyu6060-92-50 19:30:47 Test Item Value Reference Range Interpretation Comments Case number (test [id number] code = 6620680) Surgical pathology See link below for PDF report (test code = Lab Report 2255) Result status (test This is Supplemental code = [id number]) Report for [id number] [facility]2021-04-09 16:31:00 Test Item Value Reference Range Interpretation Comments POC Activated Clotting Time (test code 153 s = POC Activated Clotting Time) [facility]ressIdvviedLOQHDDQPGV9703-83-53 16:31:00 Test Item Value Reference Range Interpretation Comments POC Activated Clotting Time (test code 153 s = POC Activated Clotting Time) [facility] CypressZivwfweVNMUHRCUVY9255-82-67 16:31:00 Test Item Value Reference Range Interpretation Comments POC Activated Clotting Time (test code 153 s = POC Activated Clotting Time) [facility] CypressFilzbplLKTZDEGNDG0152-08-93 16:31:00 Test Item Value Reference Range Interpretation Comments POC Activated Clotting Time (test code 153 s = POC Activated Clotting Time) [facility] CypressKwfjnxiEQZQKHFGCF5538-98-14 16:31:00 Test Item Value Reference Range Interpretation Comments POC Activated Clotting Time (test code 153 s = POC Activated Clotting Time) [facility] CypressHdauvatZFCKICETGG6523-84-46 16:31:00 Test Item Value Reference Range Interpretation Comments POC Activated Clotting Time (test code 153 s = POC Activated Clotting Time) [facility] CypressCqwmjxdJJOAHEAFFY5258-63-12 16:31:00 Test Item Value Reference Range Interpretation Comments POC Activated Clotting Time (test code 153 s = POC Activated Clotting Time) [facility] CypressGzypxlpRAOUTBJBOO2600-10-23 14:37:00 Test Item Value Reference Range Interpretation Comments POC Activated Clotting Time (test code 454 s = POC Activated Clotting Time) [facility] CypressXbixfpsVLIOXWOZKU8692-67-02 14:37:00 Test Item Value Reference Range Interpretation Comments POC Activated Clotting Time (test code 454 s = POC Activated Clotting Time) [place] 185961-04-09 14:37:00 Test Item Value Reference Range Interpretation Comments POC Activated Clotting Time (test code 454 s = POC Activated Clotting Time) [place] 185961-04-09 14:37:00 Test Item Value Reference Range Interpretation Comments POC Activated Clotting Time (test code 454 s = POC Activated Clotting Time) [facility] CypressSlbfbccVSPILJJHTQ8177-38-80 14:37:00 Test Item Value Reference Range Interpretation Comments POC Activated Clotting Time (test code 454 s = POC Activated Clotting Time) [facility] CypressKkggenkBNFYROETCA6686-42-76 14:37:00 Test Item Value Reference Range Interpretation Comments POC Activated Clotting Time (test code 454 s = POC Activated Clotting Time) [facility] CypressScxfkafWZVLMCXSZJ3981-93-40 14:37:00 Test Item Value Reference Range Interpretation Comments POC Activated Clotting Time (test code 454 s = POC Activated Clotting Time) [facility] CypressRgsticiCPWFTSXAMO5466-14-24 14:13:00 Test Item Value Reference Range Interpretation Comments POC Activated Clotting Time (test code 354 s = POC Activated Clotting Time) [facility] CypressSbpqbgpBUYKICDKST8742-73-96 14:13:00 Test Item Value Reference Range Interpretation Comments POC Activated Clotting Time (test code 354 s = POC Activated Clotting Time) [facility] CypressQpyikjlXOGQNPVXHW9944-80-03 14:13:00 Test Item Value Reference Range Interpretation Comments POC Activated Clotting Time (test code 354 s = POC Activated Clotting Time) [facility] CypressDkeokqzYJCFIGKUSW2059-15-52 14:13:00 Test Item Value Reference Range Interpretation Comments POC Activated Clotting Time (test code 354 s = POC Activated Clotting Time) [facility] CypressVaemdunCXOHFZAJHA4357-80-67 14:13:00 Test Item Value Reference Range Interpretation Comments POC Activated Clotting Time (test code 354 s = POC Activated Clotting Time) [facility] CypressWchaglcPTAZROFSZW3971-04-63 14:13:00 Test Item Value Reference Range Interpretation Comments POC Activated Clotting Time (test code 354 s = POC Activated Clotting Time) [facility] CenterZpbuspcDOEDVRQBSO7717-58-13 14:13:00 Test Item Value Reference Range Interpretation Comments POC Activated Clotting Time (test code 354 s = POC Activated Clotting Time) [facility] AWWSVCJ6270-24-31 10:37:00Negative (08/29/20 5:37 AM) [facility] KRSMS4721-13-61 10:37:63910Xjzqmtry HermannCHEM PANEL 2020-08-29 10:37:0028[facility]annCHEM ROOHL5970-16-12 10:37:001.01[facility]annCHEM GBEZW7882-60-85 10:37:61062Undmlrqx HermannCHEM KAAPG1093-35-80 10:37:003.8[facility]annCHE[facility] GTGFI3025-55-24 10:37:63224Hfldurvz HermannCHEM UTAOZ9291-37-22 10:37:0028[facility]annCHE[facility] LVZKN9209-38-10 10:37:009.8 [facility]CHE[facility] RGQRZ5451-91-31 10:37:0011.8[facility]annCHEM PANEL 2020-08-29 10:37:0059[facility]annCHEM MJKML1993-81-31 10:37:002.9[facility] GerpsfbZAOLCNVDWL6043-63-03 10:37:006.8[facility] HfqeqnhYPJVBGSVGW0704-81-07 10:37:004.47[facility] XntlkwjEYDSUTGULZ8067-48-00 10:37:0010.6[facility] MLRWJPRCEU2425-08-95 10:37:0034.0[facility] EtiuqqbGPSSTSKLEI8503-27-05 10:37:00 76.1[facility] NfmennxFNZVSZPIYI3390-44-56 10:37:00 Test Item Value Reference Range Interpretation Comments MCH (test code = MCH) 23.8 pg 27.0-31.0 [facility] EyhycdaRPNHJKRIGM1830-22-43 10:37:0031.3[facility]annHEMATOLOGY 2020-08-29 10:37:0018.2[facility] TyajatqYWQYGNGAPW9313-78-03 10:37:84891Vtudbili DrlembxBALLJNXAGY0964-09-42 10:37:007.5[facility] XfpzrwxGSWDRILTME2212-14-35 10:37:00 Test Item Value Reference Range Interpretation Comments PT (test code = PT) 12.8 s 12.0-14.7 [facility] KyphbsaVUFRHRDRKY3235-56-75 10:37:00 Test Item Value Reference Range Interpretation Comments INR (test code = INR) 0.97 1 0.85-1.17 [facility] RbqokdsDZJYNSPBKP1309-18-70 10:37:00 Test Item Value Reference Range Interpretation Comments PTT (test code = PTT) 25.0 s 22.9-35.8 [facility] HfiuqpfAPQFDYODWB2527-05-97 10:37:0070.5[facility] HermannHEMATOLOGY 2020-08-29 10:37:0018.8[facility] BdgzlcyYKQGNWULSQ4147-39-19 10:37:009.5[facility] YkecewmTGJYDLTSSD2772-04-87 10:37:000.9[facility] QqegoyhQTLMNKWGAG4119-66-59 10:37:000.3[facility] NtkuepfXUEVQSUHGF9130-68-21 10:37:004.8[facility] LCYVEZSYYG2327-78-29 10:37:001.3[facility] QahxvsaQRGLUVZXQL2523-17-50 10:37:000.6 [facility] MzizhxbFLEHDEEQYS3951-60-34 10:37:000.1[facility]annHEMATOLOGY 2020-08-29 10:37:001+ *ABN*(08/29/20 5:37 AM)[facility] FwtwxekFKCQTABCNF7523-90-29 10:37:00Not Detected (08/29/20 5:37 AM)[facility]annBLOOD BANK RESULTS 2020-08-29 10:37:00Negative (08/29/20 5:37 AM)[facility]annCHEM WOURS3659-62-56 10:37:73582Ktxxvmht HermannCHEM EEAEZ9434-39-76 10:37:0028[facility]annCHEM OFKUG5223-08-83 10:37:001.01[facility]annCHEM OAHVI8305-02-00 10:37:42165 [facility]CHE[facility] BJDAO5624-02-37 10:37:003.8[facility]annCHEM PANEL 2020-08-29 10:37:58624Qmxhymjn HermannCHEM TMLQX5347-47-44 10:37:0028[facility]annCHE[facility] BCLBP8573-72-29 10:37:009.8[facility]annCHE[facility] ZZPJL6873-98-41 10:37:0011.8[facility]annCHEM OMIWM6474-22-44 10:37:0059[facility]annCHEM YKGEQ1286-17-57 10:37:002.9[facility] KgfildhVKGLJVFBPL1667-95-00 10:37:006.8 [facility] LfkuwqaDTJOUKEBFC9253-31-92 10:37:004.47[facility]annHEMATOLOGY 2020-08-29 10:37:0010.6[facility] WxaoqhuMAPHJTNYMQ8566-71-58 10:37:0034.0[facility] SnzkuijEQEJSKQJEA5433-44-94 10:37:0076.1[facility] UnlhpbzTWYKSGZAIG7336-96-84 10:37:00 Test Item Value Reference Range Interpretation Comments MCH (test code = MCH) 23.8 pg 27.0-31.0 [facility] CenterTkzgevcXNJKCRZUUX4700-19-15 10:37:0031.3[facility]annHEMATOLOGY 2020-08-29 10:37:0018.2[facility] SrtrkijBVZNZLQGCN4727-23-97 10:37:91517Eifusbrp QghhtneEAVMCDBFPV3797-78-28 10:37:007.5[facility] ZlbzsrdIJAAVSHBOW3877-12-45 10:37:00 Test Item Value Reference Range Interpretation Comments PT (test code = PT) 12.8 s 12.0-14.7 [facility] TvtkpkvJUMLLYYGKC2331-91-97 10:37:00 Test Item Value Reference Range Interpretation Comments INR (test code = INR) 0.97 1 0.85-1.17 [facility] HajgdlaVQVZSSNDJQ9933-47-50 10:37:00 Test Item Value Reference Range Interpretation Comments PTT (test code = PTT) 25.0 s 22.9-35.8 [facility] OyuaqxlNSGIXHYEAO0875-82-45 10:37:0070.5[facility]annHEMATOLOGY 2020-08-29 10:37:0018.8[facility] GplksteGPSUENZADJ0100-23-26 10:37:009.5[facility] AqpmohhHYCGFNQGCE6654-56-26 10:37:000.9[facility] RkaayaiAYCAJUSPXA4226-14-54 10:37:000.3[facility] ZijltgaGRCWAXRRHS8650-18-78 10:37:004.8[facility] FEZLDRWKVX1815-42-52 10:37:001.3[facility] PgqrauzJTXQTPNUSE0088-60-38 10:37:000.6 [facility] JudljceYDGGOAHPOO2718-42-81 10:37:000.1[facility]annHEMATOLOGY 2020-08-29 10:37:001+ *ABN*(08/29/20 5:37 AM)[facility] YgcwjpkWWPPQODSXX7391-08-77 10:37:00Not Detected (08/29/20 5:37 AM)[facility]annBLOOD BANK RESULTS 2020-08-29 10:37:00Negative (08/29/20 5:37 AM)[facility]annCHEM ZUXGO7838-76-10 10:37:01016Jvtxrbwq HermannCHEM FFBEX4100-30-04 10:37:0028[facility]annCHEM MFROR7559-35-92 10:37:001.01[facility]annCHEM ORAUV0352-40-17 10:37:10333 [facility]annCHE[facility] XKOUR3882-63-03 10:37:003.8[facility] HermannCHEM PANEL 2020-08-29 10:37:56295Hvcssphf HermannCHEM JBEUS2936-34-38 10:37:0028[facility]annCHEM VZEFF2161-78-18 10:37:009.8[facility]annCHEM LGECT1619-65-75 10:37:0011.8[facility]annCHEM UNQIY1307-42-54 10:37:0059[facility]annCHEM DSFEV4550-94-42 10:37:002.9[facility] QetebqkUEJZXEHRXM8551-74-58 10:37:006.8 [facility] UwuvwbuZTBMBJVOWL2093-73-28 10:37:004.47[facility]annHEMATOLOGY 2020-08-29 10:37:0010.6[facility] ByvinicNWOSITAGWW6210-90-23 10:37:0034.0[facility] SpbanpaILWEFWSWXK0780-31-78 10:37:0076.1[facility] BmglcfsVTOQCKKQMB1474-10-77 10:37:00 Test Item Value Reference Range Interpretation Comments MCH (test code = MCH) 23.8 pg 27.0-31.0 [facility] QcnjutuGNKCKPKAKY6009-62-52 10:37:0031.3[facility]annHEMATOLOGY 2020-08-29 10:37:0018.2[facility] ZnuprluDVSCOGJOXP0484-72-29 10:37:42804Ltfqeoxa RtiuhvqOWQEJOZAZW2916-22-45 10:37:007.5[facility] FwzvvgeLJCHWRAHPB8605-13-30 10:37:00 Test Item Value Reference Range Interpretation Comments PT (test code = PT) 12.8 s 12.0-14.7 [facility] FatgjosNUDBOXWRVK0193-19-51 10:37:00 Test Item Value Reference Range Interpretation Comments INR (test code = INR) 0.97 1 0.85-1.17 [facility] SixzvlrSUIUZKUYJC7837-51-38 10:37:00 Test Item Value Reference Range Interpretation Comments PTT (test code = PTT) 25.0 s 22.9-35.8 [facility] BmhwoetFHRUYDFFPD0999-62-97 10:37:0070.5[facility] HermannHEMATOLOGY 2020-08-29 10:37:0018.8[facility] ZtsjusoXGIHMWEBPA7365-61-18 10:37:009.5[facility] BrksqocNFBPRQXIOV1000-77-41 10:37:000.9[facility] JnbzqllNZBBSNQUDI7149-25-20 10:37:000.3[facility] BsgtbtpMKAFMIFKBP3610-39-43 10:37:004.8[facility] QQVVIEYEWD7981-67-36 10:37:001.3[facility] MmugvbbJCYPCTJZGS1529-05-16 10:37:000.6 [facility] FfrqcuuDXYSEVXQVH8113-80-90 10:37:000.1[facility]annHEMATOLOGY 2020-08-29 10:37:001+ *ABN*(08/29/20 5:37 AM)[facility] NhinvgbOOPCNPHALZ5348-62-78 10:37:00Not Detected (08/29/20 5:37 AM)[facility] HermannBLOOD BANK RESULTS 2020-08-29 10:37:00Negative (08/29/20 5:37 AM)[facility]annCHEM XVHLN2106-91-47 10:37:95269Liroxjmw HermannCHEM YYNFZ0055-90-94 10:37:0028[facility]annCHEM TNKTU2159-00-80 10:37:001.01[facility]annCHEM YTCCZ5511-28-55 10:37:49963 [facility]annCHE[facility] SIEMG8990-63-97 10:37:003.8[facility] HermannCHEM PANEL 2020-08-29 10:37:22817Msxxrhok HermannCHEM NYPIY8517-50-05 10:37:0028[facility] HermannCHEM TUBEE6370-72-61 10:37:009.8[facility] HermannCHEM TWRSU0794-24-00 10:37:0011.8[facility] HermannCHEM XYHEY5856-31-42 10:37:0059[facility]annCHEM XGEKL1166-45-77 10:37:002.9[facility] FpefcyoRFZSDZQZLF1676-85-68 10:37:006.8 [facility] GflczmxUFQSQAMBJZ5934-01-13 10:37:004.47[facility]annHEMATOLOGY 2020-08-29 10:37:0010.6[facility] CkznimrPDLFQXQXTL7940-53-62 10:37:0034.0[facility] NzhrbzyKKANMMQFSN4576-31-55 10:37:0076.1[facility] WszrarzSTTRUQZAUL1075-67-67 10:37:00 Test Item Value Reference Range Interpretation Comments MCH (test code = MCH) 23.8 pg 27.0-31.0 [facility] FsacdsjTDQHKPPJZH5409-67-16 10:37:0031.3[facility] HermannHEMATOLOGY 2020-08-29 10:37:0018.2[facility] BslglvhKFSGBSQLPF5510-60-03 10:37:80889Vmzwdphh FuyosomEGEHGEBQCA4771-52-88 10:37:007.5[facility] QvaxgflEVUIDHJIRA2059-79-95 10:37:00 Test Item Value Reference Range Interpretation Comments PT (test code = PT) 12.8 s 12.0-14.7 [facility] RedqzezYDNZTLDIPK0187-07-67 10:37:00 Test Item Value Reference Range Interpretation Comments INR (test code = INR) 0.97 1 0.85-1.17 [facility] EweefyaNOMTTEIKWZ5834-82-18 10:37:00 Test Item Value Reference Range Interpretation Comments PTT (test code = PTT) 25.0 s 22.9-35.8 [facility] OaokxvvPPDAWWEVKL8960-74-37 10:37:0070.5[facility]annHEMATOLOGY 2020-08-29 10:37:0018.8[facility] EwflbseAXFXXEANQW1276-65-26 10:37:009.5[facility] FdhksxzMNYDKVLBPZ3622-36-14 10:37:000.9[facility] WlhvlrbRBGAMJSJKU3835-05-13 10:37:000.3[facility] IrxhgsuZDBQKSXHYO6231-96-50 10:37:004.8[facility] TOAJZULCHP2598-54-76 10:37:001.3[facility] FdqipgxLDLKYABWKK2098-05-55 10:37:000.6 [facility] FtvolcsCRYVLWWHFG8962-59-13 10:37:000.1[facility]annHEMATOLOGY 2020-08-29 10:37:001+ *ABN*(08/29/20 5:37 AM)[facility] QykfeboCLRQESDTHV2393-07-26 10:37:00Not Detected (08/29/20 5:37 AM)[facility] HermannBLOOD BANK RESULTS 2020-08-29 10:37:00Negative (08/29/20 5:37 AM)[facility]annCHEM HGGBH3633-47-66 10:37:99124Rtcwagcu HermannCHEM FXYOZ7832-12-24 10:37:0028[facility]annCHEM AHGFN4412-83-01 10:37:001.01[facility]annCHEM QAVBJ4757-43-98 10:37:98712 [facility]annCHE[facility] CCLEU5487-10-28 10:37:003.8[facility] HermannCHEM PANEL 2020-08-29 10:37:32771Lgaztnli HermannCHEM GUBLN3775-04-54 10:37:0028[facility] HermannCHEM WYKND5516-52-02 10:37:009.8[facility] HermannCHEM CMVLQ0584-89-41 10:37:0011.8[facility] HermannCHEM EGQPY9775-17-01 10:37:0059[facility]annCHEM FQBKA1971-00-08 10:37:002.9[facility] EzsgcmeSUBUPLVYSX2242-06-19 10:37:006.8 [facility] GbubsexBOYNCXMRAK7538-60-40 10:37:004.47[facility]annHEMATOLOGY 2020-08-29 10:37:0010.6[facility] SjkzcjxJGFYMJRFWX2576-93-00 10:37:0034.0[facility] KedxhzdYJGWCKJHWH9827-46-95 10:37:0076.1[facility] IkcfdthDYEINRFJHC1318-74-19 10:37:00 Test Item Value Reference Range Interpretation Comments MCH (test code = MCH) 23.8 pg 27.0-31.0 [facility] NhlhzbgGQTVGWUFAX2871-42-38 10:37:0031.3[facility]annHEMATOLOGY 2020-08-29 10:37:0018.2[facility] YrcksbpSWCEFGZMXP6245-74-67 10:37:20888Fuvgnvdz OlvjoiuPCGRMFZBTP0854-36-14 10:37:007.5[facility] UtorlcfPJIDFKRMOG2065-99-63 10:37:00 Test Item Value Reference Range Interpretation Comments PT (test code = PT) 12.8 s 12.0-14.7 [facility] SbshjvoURGIKKBSLU5330-08-68 10:37:00 Test Item Value Reference Range Interpretation Comments INR (test code = INR) 0.97 1 0.85-1.17 [facility] XciigvsPVCGBLRPRI6864-02-54 10:37:00 Test Item Value Reference Range Interpretation Comments PTT (test code = PTT) 25.0 s 22.9-35.8 [facility] VjzbdfeLYPIKEGEPM9839-65-01 10:37:0070.5[facility] HermannHEMATOLOGY 2020-08-29 10:37:0018.8[facility] QmgkkgqECMDLXETFC8996-05-77 10:37:009.5[facility] MmgrjqwWDGPPGNTMZ6438-46-26 10:37:000.9[facility] YjucrbmPYIRUMJKJH3826-57-74 10:37:000.3[facility] DsfluybUHOUFJADNJ8519-71-74 10:37:004.8[facility] EYHGLPCRSR9198-33-23 10:37:001.3[facility] VknbhfqVYCABMKBWW2871-21-79 10:37:000.6 [facility] BotpawkVZFURUQWBA1390-82-45 10:37:000.1[facility] HermannHEMATOLOGY 2020-08-29 10:37:001+ *ABN*(08/29/20 5:37 AM)[facility] FfqghykNIMPSUGYUP4339-81-80 10:37:00Not Detected (08/29/20 5:37 AM)[facility] HermannBLOOD BANK RESULTS 2020-08-29 10:37:00Negative (08/29/20 5:37 AM)[facility] HermannCHEM VSCTM3966-92-88 10:37:84463Eblwxzcn HermannCHEM YVPRM6847-89-85 10:37:0028[facility] HermannCHEM FMIZJ1143-89-07 10:37:001.01[facility] HermannCHEM NUJYP5922-31-84 10:37:92945 [facility]annCHE[facility] LBVOI6883-93-27 10:37:003.8[facility] HermannCHEM PANEL 2020-08-29 10:37:13675Isrpkaap HermannCHEM FBAVN6867-02-41 10:37:0028[facility] HermannCHEM SAKVN4996-23-77 10:37:009.8[facility] HermannCHEM HAPWK8631-62-17 10:37:0011.8[facility] HermannCHEM AWZBX5335-20-17 10:37:0059[facility] HermannCHEM FDRDA8024-85-86 10:37:002.9[facility] KzhtxwvWQJAPIFCWU1827-18-48 10:37:006.8 [facility] PpxqdncQRQJBZHABG2454-55-78 10:37:004.47[facility] HermannHEMATOLOGY 2020-08-29 10:37:0010.6[facility] BoajfocHVFKNFDHHN2296-76-05 10:37:0034.0[facility] YtzgjdsKFTRGORMHS6654-47-92 10:37:0076.1[facility] UwqcfccGHGWOTSLKD0480-64-87 10:37:00 Test Item Value Reference Range Interpretation Comments MCH (test code = MCH) 23.8 pg 27.0-31.0 [facility] JtpvcygIFWVEHDZMW2139-53-34 10:37:0031.3[facility] HermannHEMATOLOGY 2020-08-29 10:37:0018.2[facility] RncjktdWUCMIQVOIM9924-37-66 10:37:02093Ttmhvkus IrqhkgxVTRBMXDDAD9541-63-79 10:37:007.5[facility] YiswepzMMUKJGTSND2359-43-15 10:37:00 Test Item Value Reference Range Interpretation Comments PT (test code = PT) 12.8 s 12.0-14.7 [facility] LnjcchpDJQHJXHZUD1549-10-72 10:37:00 Test Item Value Reference Range Interpretation Comments INR (test code = INR) 0.97 1 0.85-1.17 [facility] NdezkghTQOFMJAUWJ6049-13-95 10:37:00 Test Item Value Reference Range Interpretation Comments PTT (test code = PTT) 25.0 s 22.9-35.8 [facility] UfqcxjcLVCFKJGADV3051-22-40 10:37:0070.5[facility] HermannHEMATOLOGY 2020-08-29 10:37:0018.8[facility] ZnqcovbCGPBLIOHEC9337-48-70 10:37:009.5[facility] UojkloxXNGYCAJDSQ8621-48-06 10:37:000.9[facility] MhabqzpUNNITHHYHZ2981-30-26 10:37:000.3[facility] OfqafivGMVGRNRXRB2582-21-06 10:37:004.8[facility] VUUWXREIFJ3364-54-33 10:37:001.3[facility] MxfvckrQHDVBKEDFM3162-43-26 10:37:000.6 [facility] BarucgaZKYYUJTTTU9724-35-75 10:37:000.1[facility] HermannHEMATOLOGY 2020-08-29 10:37:001+ *ABN*(08/29/20 5:37 AM)[facility] HaqiliwLJRWEHBRGN9617-34-73 10:37:00Not Detected (08/29/20 5:37 AM)[facility] HermannBLOOD BANK RESULTS 2020-08-29 10:37:00Negative (08/29/20 5:37 AM)[facility] HermannCHEM FKFOE6642-44-40 10:37:12342Khhgvccr HermannCHEM NCOXB2107-14-52 10:37:0028[facility] HermannCHEM LYIGI6859-33-80 10:37:001.01[facility]annCHEM GVNRL6731-72-16 10:37:39870 [facility]annCHE[facility] YMQYA1166-98-00 10:37:003.8[facility]annCHEM PANEL 2020-08-29 10:37:99817Eritdcvd HermannCHEM MEICX0380-64-97 10:37:0028[facility]annCHEM HPPJG4145-98-18 10:37:009.8[facility]annCHEM UVXIA5441-90-22 10:37:0011.8[facility]annCHEM UCRHO6428-56-07 10:37:0059[facility]annCHEM SZLHK9159-69-42 10:37:002.9[facility] YlvtklwMGBWAHNKJC0902-74-39 10:37:006.8 [facility] ZlrrdofTYLHAEGTFG4980-23-95 10:37:004.47[facility]annHEMATOLOGY 2020-08-29 10:37:0010.6[facility] LabrcrbRCACRRLUXX9532-40-38 10:37:0034.0[facility] StlsvcfYOUCCTJYBC4265-13-91 10:37:0076.1[facility] UjpikltANPUBLKAHF2065-11-90 10:37:00 Test Item Value Reference Range Interpretation Comments MCH (test code = MCH) 23.8 pg 27.0-31.0 [facility] GuvihkkMPXQISVVDF8302-53-84 10:37:0031.3[facility]annHEMATOLOGY 2020-08-29 10:37:0018.2[facility] GyleqosENJWBFYFOU3646-07-68 10:37:57274Dzqwfrlg HlfqorsFESHWKFMPF9056-36-20 10:37:007.5[facility] IpexxvpIMLCTWPNJK9835-99-33 10:37:00 Test Item Value Reference Range Interpretation Comments PT (test code = PT) 12.8 s 12.0-14.7 [facility] UvvaefjQVMXDBVDOZ6070-61-43 10:37:00 Test Item Value Reference Range Interpretation Comments INR (test code = INR) 0.97 1 0.85-1.17 [facility] SknltfmZFFTHIEJPK6944-76-62 10:37:00 Test Item Value Reference Range Interpretation Comments PTT (test code = PTT) 25.0 s 22.9-35.8 [facility] YhqppqwELRBOTNWMX4297-06-01 10:37:0070.5[facility]annHEMATOLOGY 2020-08-29 10:37:0018.8[facility] LvlsxwwQROFPAZAOD9708-10-03 10:37:009.5[facility] UcnqujtIUMMWGOSDX2044-35-35 10:37:000.9[facility] BdigefkSIDLLAHLHY0800-44-80 10:37:000.3[facility] EhgwwvtSYNHYJJYDR5009-07-20 10:37:004.8[facility] TRAZIXGUNP0067-46-58 10:37:001.3[facility] GbcrrjbYTKPBIGBBA0291-55-76 10:37:000.6 [facility] RtrasfhEOCFNJDHCS4806-80-20 10:37:000.1[facility]annHEMATOLOGY 2020-08-29 10:37:001+ *ABN*(08/29/20 5:37 AM)[facility] HsujucsRBKPXKQZQL9410-51-63 10:37:00Not Detected (08/29/20 5:37 AM)[facility] HermannCHLAMYDIA, GC, TV,PCR, IN WIVWE3748-10-35 15:38:00 Test Item Value Reference Range Interpretation Comments FT (test code = CHTR) Not detected (qualifier Not Detected N value) FT (test code = Not detected (qualifier Not Detected N NGONO) value) FT (test code = TRVG) Not detected (qualifier Not Detected N value) URINALYSIS WITH BNKJNMSENIC0921-56-35 10:57:00 Test Item Value Reference Range Interpretation Comments Color (test code = UCOLR) Dk. Yellow Clarity (test code = UCLAR) Hazy Glucose (test code = UGLUC) NEGATIVE NEGATIVE N Bilirubin (test code = UBILI) NEGATIVE NEGATIVE N Ketones (test code = UKET) NEGATIVE NEGATIVE N Specific [place] (test code = 1.025 1.005-1.030 A USPGR) [...]
[2021-09-11] MEDS ORDERED: METHYLPREDNISOLONE 125 MG INJ ONE (06:38)
[2021-09-11] MEDS ORDERED: LEVALBUTEROL 1.25 MG/3 ML NEB ONE ×2 (06:39→09:10)
[2021-09-11] MEDS ORDERED: FUROSEMIDE 40 MG/4 ML VIAL ONE (07:11)
[2021-09-11] MEDS ORDERED: ONDANSETRON 4 MG/2 ML VIAL ONE (07:21)
[2021-09-11 07:26] LABS: Absolute Lymphocytes (CBC) 1.3 K/uL (0.7-4.9); Lymphocytes % 19.3 % (15.3-44.8); MPV 7.6 fL (7.6-11.3); RBC Red Blood Cell Count 4.57 M/uL (3.86-4.86)
[2021-09-11 07:38] LABS: Potassium 3.2 mmol/L (3.5-5.1); Troponin High Sensitivity 15.1 pg/mL (<58.9)
[2021-09-11] MEDS ORDERED: HYDROMORPHONE HCL 0.5 MG/0.5 ML INJ ONE (07:52)
[2021-09-11] MEDS ORDERED: predniSONE 20 MG TAB ONE (07:52)
[2021-09-11] MEDS ORDERED: MORPHINE 4 MG/ML SYR ONE ×2 (07:57→09:10)
[2021-09-11 08:08] LABS: Protime INR 1.03
[2021-09-11] MEDS ORDERED: POTASSIUM 25 MEQ EFFERV TAB ONE (08:33)
[2021-09-11] MEDS ORDERED: ASPIRIN 81 MG CHEWABLE TABLET ONE (09:09)
--- NOTE | 2021-09-11 09:45 | ER ---
Nurse's Notes [facility] Name: Fawn Fleming Age: 66 yrs Sex: Female : 1955 Arrival Date: 09/11/2021 Time: 05:41 Bed 7 Private MD: Diagnosis: COPD/ Chronic obstructive pulmonary disease with (acute) exacerbation;Dyspnea, unspecified;Chest pain, unspecified;Anemia, unspecified;Essential (primary) hypertension Presentation: 09/11 05:49 Chief complaint: Patient states: "I have been having chest pain and shortness of tw5 breaths since yesterday. Last time I was here they said my potassium was really low, but when I got home I never drank that stuff to help it. Maybe that is why I am feeling weak also.". Coronavirus screen: Vaccine status: Patient reports receiving the 2nd dose of the covid vaccine. [employer]. Ebola Screen: Patient negative for fever greater than or equal to 101.5 degrees Fahrenheit, and additional compatible Ebola Virus Disease symptoms Patient denies exposure to infectious person. Patient denies travel to an Ebola-affected area in the 21 days before illness onset. Initial Sepsis Screen: Does the patient meet any 2 criteria? RR > 20 per min. No. Patient's initial sepsis screen is negative. Does the patient have a suspected source of infection? No. Patient's initial sepsis screen is negative. Risk Assessment: Do you want to hurt yourself or someone else? Patient reports no desire to harm self or others. Onset of symptoms was September 09, 2021. 05:49 Method Of Arrival: Ambulatory tw 05:49 Acuity: BLAYNE 3 tw5 Triage Assessment: 05:51 General: Appears uncomfortable, Behavior is calm, cooperative, appropriate for age. tw5 Pain: Pain currently is 9 out of 10 on a pain scale. Cardiovascular: Rhythm is regular. Historical: - Allergies: 05:51 Bactrim DS; 05:51 butorphanol tartrate; 05:51 Fentanyl; 05:51 Reglan; 05:51 Stadol; 05:51 sulfamethoxazole (bulk); 05:51 TRIMETHOPRIM; tw - Home Meds: 08:01 clopidogrel 75 mg Oral tab 1 tab once daily [Active]; Dexilant 60 mg Oral CpDB 1 cap jl7 once daily [Active]; Isentress 400 mg Oral tab 1 tab 2 times per day [Active]; metoprolol tartrate 100 mg Oral tab 1 tab 2 times per day [Active]; lisinopril 40 mg Oral tab 1 tab BID [Active]; amlodipine 10 mg tab 2 tab once daily [Active]; hydralazine 10 mg Oral tab 2 times per day [Active]; Descovy 200-25 mg Oral tab 1 tab once daily [Active]; furosemide 40 mg Oral tab 1 tab 2 times per day [Active]; - PMHx: 05:51 Anxiety; Chronic pain; Atrial Fib; Bipolar disorder; COPD; Panic Attacks; Hypertension; tw5 HIV; Hepatitis; esophageal varices; Migraines; - PSHx: 05:51 Appendectomy; Bilateral shoulder repair; Cholecystectomy; hernia repair; R wrist SX; tw5 - Immunization history:: Flu vaccine is up to date. - Social history:: Smoking status: Patient/guardian denies using tobacco, the patient reports quitting approximately 2 years ago. - Family history:: not pertinent. - Hospitalizations: : No recent hospitalization is reported. Screenin:30 Abuse screen: Denies threats or abuse. Nutritional screening: No deficits noted. ke1 Tuberculosis screening: No symptoms or risk factors identified. Fall Risk No fall in past 12 months (0 pts). No secondary diagnosis (0 pts). No IV (0 pts). Ambulatory Aid- None/Bed Rest/Nurse Assist (0 pts). Gait- Mental Status- Oriented to own ability (0 pts). Total Hauser Fall Scale indicates No Risk (0-24 pts). Assessment: 06:27 Reassessment: Patient is difficult stick , all attempts to get an iv line failed, md rosales notified. 07:06 General: Appears uncomfortable, Behavior is calm, cooperative, appropriate for age. kd3 Neuro: Level of Consciousness is awake, alert, obeys commands, Oriented to person, place, time, situation. Cardiovascular: Patient's skin is warm and dry. Respiratory: Airway is patent Trachea midline Respiratory effort is unlabored. 07:18 Reassessment: Pt states nausea; provider notified. vg1 07:30 Reassessment: Pt states "I haven't taken my BP medication this morning.". jl7 08:09 Reassessment: Patient appears in no apparent distress at this time. Patient and/or vg1 family updated on plan of care and expected duration. Pain level reassessed. Patient is alert, oriented x 3, equal unlabored respirations, skin warm/dry/pink. 08:30 Reassessment: Pt reports decreased pain, rated 4/10 at this time. jl7 09:00 Reassessment: Pt requesting more pain medication, reports pain 9/10 at this time. jl7 09:32 Reassessment: Patient appears in no apparent distress at this time. Patient and/or vg1 family updated on plan of care and expected duration. Pain level reassessed. Patient is alert, oriented x 3, equal unlabored respirations, skin warm/dry/pink. Pt states 'im still in pain', provider notified. 10:30 Reassessment: Pt requesting to be given morning BP medications, states "I check my jl7 blood pressure before I take medications and if it is 140/80 or lower then I might not take them but I would take them at home with my blood pressure 147/90.". Vital Signs: 05:49 BP 182 / 120; Pulse 66; Resp 20; Temp 97.8; Pulse Ox 100% on R/A; Weight 95.25 kg; tw5 Height 5 ft. 6 in. (167.64 cm); Pain 9/10; 07:21 BP 181 / 82; Pulse 61; Resp 23; Pulse Ox 100% ; jl7 08:09 BP 187 / 80; Pulse 62; Resp 22; Pulse Ox 96% on R/A; vg1 09:12 BP 161 / 97; Pulse 62; Resp 15; Pulse Ox 97% ; Pain 9/10; jl7 09:32 BP 161 / 97; Pulse 64; Resp 20; Pulse Ox 95% on R/A; vg1 10:30 BP 147 / 90; Pulse 65; Resp 15; Pulse Ox 97% ; jl7 05:49 Body Mass Index 33.89 (95.25 kg, 167.64 cm) tw5 ED Course: 05:41 Patient arrived in ED. bp1 05:42 Ramon Baker MD is Attending Physician. rn 05:48 Eli Bran, ASHLEY is Primary Nurse. ke1 05:51 Triage completed. tw5 05:51 Arm band placed on right wrist. tw5 05:52 EKG completed in triage. Results shown to MD. tw5 06:02 XRAY Chest (1 view) In Process Unspecified. EDMS 06:10 Missed attempt(s): 22 gauge in left upper arm. ke1 06:29 Missed attempt(s): 20 gauge in right forearm. ke1 06:41 Missed attempt(s): 20 gauge in right forearm. Bleeding controlled, band aid applied, tw5 catheter tip intact. 07:00 Patient has correct armband on for positive identification. Placed in gown. Bed in low jl7 position. Call light in reach. Side rails up X 1. library monitor on. Pulse ox on. NIBP on. Warm blanket given. 07:00 Initial lab(s) drawn, by ED staff, by school laboratory technician, First set of blood cultures drawn by [facility] lab staff. 07:11 Attending Physician role handed off by Ramon Baker MD thomas 07:11 Justus Kolb MD is Attending Physician. thomas 07:15 Second set of blood cultures drawn by or. jl7 07:22 Inserted saline lock: 24 gauge in left wrist, using aseptic technique. Blood collected. jl7 07:23 Patient maintains SpO2 saturation greater than 95% on room air. jl7 07:44 Lab(s) recollected, by me, sent to lab. jl7 07:53 Primary Nurse role handed off by Eli Bran, RN eb 07:55 Renae Camarillo, RN is Primary Nurse. vg1 09:43 Per Crane MD is Referral Physician. thomas 09:43 Moody Sosa MD is Referral Physician. thomas 10:25 IV discontinued, Pressure dressing applied. 5 10:49 No provider procedures requiring assistance completed. ss Administered Medications: 06:33 CANCELLED (Inappropriate at this time): SOLU-Medrol (methylPrednisoLONE) 125 mg IVP oncekd3 07:05 Drug: Xopenex (levalbuterol) (3) 1.25 mg {Note: Completed by Shereen RAMIREZ.} Route: vg1 Inhalation; 08:11 Follow up: Response: No adverse reaction jl7 07:05 Drug: SOLU-Medrol (methylPREDNISolone sodium succinate) 125 mg {Note: Completed by Shereen solo RN.} Route: IM; Site: right deltoid; 08:11 Follow up: Response: No adverse reaction jl7 07:20 Drug: Zofran (Ondansetron) 4 mg Route: IVP; Site: left wrist; vg1 08:11 Follow up: Response: No adverse reaction; Nausea is decreased jl7 07:22 Drug: Lasix (furosemide) 40 mg Route: IVP; Site: left wrist; vg1 09:13 Follow up: Response: No adverse reaction vg1 08:00 Drug: morphine 4 mg Route: IVP; Site: left wrist; jl7 08:30 Follow up: Response: No adverse reaction; Pain is decreased jl7 08:01 Drug: predniSONE 40 mg Route: PO; jl7 08:11 Follow up: Response: No adverse reaction jl7 08:35 Drug: Potassium Effervescent Tablet 25 mEq Route: PO; vg1 09:13 Follow up: Response: No adverse reaction vg1 09:10 Drug: Xopenex (levalbuterol) 1.25 mg Route: Inhalation; jl7 10:40 Follow up: Response: No adverse reaction jl7 09:10 Drug: Aspirin 81 mg Route: PO; jl7 10:40 Follow up: Response: No adverse reaction jl7 09:11 Drug: morphine 4 mg Route: IVP; Site: left wrist; jl7 09:40 Follow up: Response: No adverse reaction; Pain is decreased jl7 10:30 Drug: Lisinopril 40 mg Route: PO; jl7 10:40 Follow up: Response: Medication administered at discharge. jl7 10:30 Drug: Norvasc (amlodipine) 10 mg Route: PO; jl7 10:40 Follow up: Response: Medication administered at discharge. jl7 10:30 Drug: Lopressor (metoprolol TARTRATE) 100 mg Route: PO; jl7 10:30 Follow up: Response: Medication administered at discharge. jl7 10:30 Drug: hydrALAZINE 10 mg Route: PO; jl7 10:40 Follow up: Response: Medication administered at discharge. jl7 10:39 Not Given (Other Intervention Used): hydrALAZINE 10 mg IVP once jl7 Intake: 08:35 PO: 118ml (Juice); Total: 118ml. vg1 Output: 08:35 Urine: 400ml (Voided); Total: 400ml. vg1 Outcome: 09:44 Discharge ordered by . thomas 10:49 Discharged to home ambulatory. ss 10:49 Condition: good 10:49 Discharge instructions given to patient, Instructed on discharge instructions, follow up and referral plans. medication usage, Demonstrated understanding of instructions, follow-up care, medications, Prescriptions given X 1. 10:50 Patient left the ED. ss Signatures: Dispatcher [employer] EDMS Justus Kolb MD MD cha Nieto, Roman, MD MD rn Smirch, Shelby, ASHLEY RN Laura Zuniga Jesica Ibrahim RN RN jl7 Jo Ann Huynh Victoria RN RN vg1 Cinthia Mathew Tiffany 5 Shereen Marinelli RN RN kd3 Eli Bran RN RN ke1
--- NOTE | 2021-09-11 09:45 | EDPHYS ---
Physician Documentation [facility] Name: Fawn Fleming Age: 66 yrs Sex: Female : 1955 Arrival Date: 09/11/2021 Time: 05:41 Bed 7 Private MD: ED Physician Justus Kolb HPI: 09/11 05:48 This 66 yrs old Female presents to ER via Unassigned with complaints of Breathing rn Difficulty. 05:48 The patient has shortness of breath at rest, with light activity. Onset: The rn symptoms/episode began/occurred 2 day(s) ago. Duration: The symptoms are continuous. The patient's shortness of breath is aggravated by exertion, light activity, supine position, talking, walking. The patient's shortness of breath is alleviated by rest, sitting up. Associated signs and symptoms: Pertinent negatives: fever, hemoptysis. Severity of symptoms: At their worst the symptoms were moderate in the emergency department the symptoms are unchanged. The patient has experienced similar episodes in the past. The patient has not recently seen a physician. 05:48 Denies feeling ill. States compliant with her medication.. rn Historical: - Allergies: 05:51 Bactrim DS; tw 05:51 butorphanol tartrate; tw 05:51 Fentanyl; tw 05:51 Reglan; tw 05:51 Stadol; tw 05:51 sulfamethoxazole (bulk); tw 05:51 TRIMETHOPRIM; tw5 - Home Meds: 08:01 clopidogrel 75 mg Oral tab 1 tab once daily [Active]; Dexilant 60 mg Oral CpDB 1 cap jl7 once daily [Active]; Isentress 400 mg Oral tab 1 tab 2 times per day [Active]; metoprolol tartrate 100 mg Oral tab 1 tab 2 times per day [Active]; lisinopril 40 mg Oral tab 1 tab BID [Active]; amlodipine 10 mg tab 2 tab once daily [Active]; hydralazine 10 mg Oral tab 2 times per day [Active]; Descovy 200-25 mg Oral tab 1 tab once daily [Active]; furosemide 40 mg Oral tab 1 tab 2 times per day [Active]; - PMHx: 05:51 Anxiety; Chronic pain; Atrial Fib; Bipolar disorder; COPD; Panic Attacks; Hypertension; tw5 HIV; Hepatitis; esophageal varices; Migraines; - PSHx: 05:51 Appendectomy; Bilateral shoulder repair; Cholecystectomy; hernia repair; R wrist SX; tw5 - Immunization history:: Flu vaccine is up to date. - Social history:: Smoking status: Patient/guardian denies using tobacco, the patient reports quitting approximately 2 years ago. - Family history:: not pertinent. - Hospitalizations: : No recent hospitalization is reported. ROS: 05:48 Constitutional: Negative for fever, chills, and weight loss, Eyes: Negative for injury, rn pain, redness, and discharge, Neck: Negative for injury, pain, and swelling, Cardiovascular: Negative for chest pain, palpitations Respiratory: Negative for pleuritic chest pain Abdomen/GI: Negative for abdominal pain, nausea, vomiting, diarrhea, and constipation, Back: Negative for injury and pain, MS/Extremity: Negative for injury and deformity, Skin: Negative for injury, rash, and discoloration, Neuro: Negative for headache, weakness, numbness, tingling, and seizure. Exam: 05:48 Constitutional: This is a well developed, well nourished patient who is awake, alert, rn tachypneic, ambulatory to room Head/Face: Normocephalic, atraumatic. Eyes: Periorbital areas with no swelling, redness, or edema. Cardiovascular: Regular rate and rhythm. No pulse deficits. Respiratory: + mild tachypnea with wheezing Abdomen/GI: soft, non-tender Skin: Warm, dry MS/ Extremity: Pulses equal, no cyanosis. Neurovascular intact. Full, normal range of motion. Equal circumference. Neuro: Awake and alert, GCS 15 09:01 ECG was reviewed by the Attending Physician. thomas Vital Signs: 05:49 BP 182 / 120; Pulse 66; Resp 20; Temp 97.8; Pulse Ox 100% on R/A; Weight 95.25 kg; tw5 Height 5 ft. 6 in. (167.64 cm); Pain 9/10; 07:21 BP 181 / 82; Pulse 61; Resp 23; Pulse Ox 100% ; jl7 08:09 BP 187 / 80; Pulse 62; Resp 22; Pulse Ox 96% on R/A; vg1 09:12 BP 161 / 97; Pulse 62; Resp 15; Pulse Ox 97% ; Pain 9/10; jl7 09:32 BP 161 / 97; Pulse 64; Resp 20; Pulse Ox 95% on R/A; vg1 10:30 BP 147 / 90; Pulse 65; Resp 15; Pulse Ox 97% ; jl7 05:49 Body Mass Index 33.89 (95.25 kg, 167.64 cm) tw5 MDM: 05:42 Patient medically screened. rn 06:22 Test interpretation: by ED physician or midlevel provider: plain radiologic studies, rn CXR neg for acute infiltrate or pneumothorax. 07:00 Transition of care: After a detail discussion of the patient's case, care is rn transferred to Justus Kolb MD. 09:02 Differential diagnosis: Bronchitis CHF exacerbation, Chronic Obstructive Pulmonary thomas Disease pneumonia, Pneumothorax pulmonary edema, reactive airway disease, Unstable Angina. Antibiotic administration: Not indicated. The patient's Wells Deep Vein Thrombosis Score was calculated as follows: Total Score: 0-2 Pts- Low Risk. The patient's pulmonary embolism risk score was calculated as follows: Total Score: 0-2 points. This patient was found to be at low risk for a pulmonary embolism by using the Well's assessment criteria. Immunization status: Pneumococcal vaccine: Influenza vaccine: Data reviewed: vital signs, nurses notes, lab test result(s), EKG, radiologic studies, CT scan, plain films. Data interpreted: shelter monitor: rate is 62 beats/min, rhythm is regular, Pulse oximetry: on room air is 96 %. Counseling: I had a detailed discussion with the patient and/or guardian regarding: the historical points, exam findings, and any diagnostic results supporting the discharge/admit diagnosis, lab results, radiology results, the need for outpatient follow up, for definitive care, a family practitioner, a senior sales manager. 09/11 05:47 Order name: BMP; Complete Time: 08: rn 09/11 05:47 Order name: Blood Culture Adult (2) rn 09/11 05:47 Order name: CBC with Diff; Complete Time: 08: rn 09/11 05:47 Order name: NT PRO-BNP; Complete Time: 08: rn 09/11 05:47 Order name: PT-INR; Complete Time: 08:23 rn 09/11 05:47 Order name: Ptt, Activated; Complete Time: 08: rn 09/11 05:43 Order name: XRAY Chest (1 view) rn 09/11 05:48 Order name: Troponin High Sensitivity; Complete Time: 08:23 rn 09/11 08:24 Order name: Troponin High Sensitivity: 900 am; Complete Time: 09:43 thomas 09/11 05:47 Order name: EKG; Complete Time: 05:48 rn 09/11 05:47 Order name: Cardiac monitoring; Complete Time: 06:31 rn 09/11 05:47 Order name: EKG - Nurse/Tech; Complete Time: 06:31 rn 09/11 05:47 Order name: IV Saline Lock; Complete Time: 07:25 rn 09/11 05:47 Order name: Labs collected and sent; Complete Time: 07:25 rn 09/11 05:47 Order name: O2 Per Protocol; Complete Time: 05:55 rn 09/11 05:47 Order name: O2 Sat Monitoring; Complete Time: 05:55 rn 09/11 07:31 Order name: Labs - recollect needed: recollect blue top hemolyzed; Complete Time: 07:45 eb EC:01 Rate is 57 beats/min. Rhythm is regular. QRS [place] is Normal. NM interval is normal. QRS thomas interval is normal. QT interval is normal. No Q waves. T waves are Normal. No ST changes noted. Clinical impression: Abnormal EKG without significant change and No evidence of ischemia. Interpreted by me. Reviewed by me. Administered Medications: 06:33 CANCELLED (Inappropriate at this time): SOLU-Medrol (methylPrednisoLONE) 125 mg IVP oncekd3 07:05 Drug: Xopenex (levalbuterol) (3) 1.25 mg {Note: Completed by Shereen NEWBERRY} Route: vg1 Inhalation; 08:11 Follow up: Response: No adverse reaction jl7 07:05 Drug: SOLU-Medrol (methylPREDNISolone sodium succinate) 125 mg {Note: Completed by Shereen solo RN.} Route: IM; Site: right deltoid; 08:11 Follow up: Response: No adverse reaction jl7 07:20 Drug: Zofran (Ondansetron) 4 mg Route: IVP; Site: left wrist; vg1 08:11 Follow up: Response: No adverse reaction; Nausea is decreased jl7 07:22 Drug: Lasix (furosemide) 40 mg Route: IVP; Site: left wrist; vg1 09:13 Follow up: Response: No adverse reaction vg1 08:00 Drug: morphine 4 mg Route: IVP; Site: left wrist; jl7 08:30 Follow up: Response: No adverse reaction; Pain is decreased jl7 08:01 Drug: predniSONE 40 mg Route: PO; jl7 08:11 Follow up: Response: No adverse reaction jl7 08:35 Drug: Potassium Effervescent Tablet 25 mEq Route: PO; vg1 09:13 Follow up: Response: No adverse reaction vg1 09:10 Drug: Xopenex (levalbuterol) 1.25 mg Route: Inhalation; jl7 10:40 Follow up: Response: No adverse reaction jl7 09:10 Drug: Aspirin 81 mg Route: PO; jl7 10:40 Follow up: Response: No adverse reaction jl7 09:11 Drug: morphine 4 mg Route: IVP; Site: left wrist; jl7 09:40 Follow up: Response: No adverse reaction; Pain is decreased jl7 10:30 Drug: Lisinopril 40 mg Route: PO; jl7 10:40 Follow up: Response: Medication administered at discharge. jl7 10:30 Drug: Norvasc (amlodipine) 10 mg Route: PO; jl7 10:40 Follow up: Response: Medication administered at discharge. jl7 10:30 Drug: Lopressor (metoprolol TARTRATE) 100 mg Route: PO; jl7 10:30 Follow up: Response: Medication administered at discharge. jl7 10:30 Drug: hydrALAZINE 10 mg Route: PO; jl7 10:40 Follow up: Response: Medication administered at discharge. jl7 10:39 Not Given (Other Intervention Used): hydrALAZINE 10 mg IVP once jl7 Disposition Summary: 09/11/21 09:44 Discharge Ordered Location: Home thomas Problem: new thomas Symptoms: have improved thomas Condition: Stable thomas Diagnosis - COPD/ Chronic obstructive pulmonary disease with (acute) exacerbation thomas - Dyspnea, unspecified thomas - Chest pain, unspecified thomas - Anemia, unspecified thomas - Essential (primary) hypertension thomas Followup: thomas - With: Private Physician - When: 2 - 3 days - Reason: Recheck today's complaints, Continuance of care, Re-evaluation by your physician Followup: thomas - With: - When: 2 - 3 days - Reason: Recheck today's complaints, Continuance of care, Re-evaluation by your physician Followup: thomas - With: - When: 2 - 3 days - Reason: Recheck today's complaints, Re-evaluation by your physician Discharge Instructions: - Discharge Summary Sheet thomas - Nonspecific Chest Pain, Adult thomas - Chronic Bronchitis, Adult thomas - Chronic Obstructive Pulmonary Disease thomas - Nonspecific Chest Pain, Adult, [id number] thomas - Hypertension, Adult thomas - Aspirin and Your Heart thomas - Hypertension, Adult, [id number] thomas - How to Take Your Blood Pressure, [id number] thomas - Managing Your Hypertension [facility] Forms: - Medication Reconciliation Form [facility] - Thank You Letter thomas - Antibiotic Education thomas - Prescription Opioid Use [facility] Prescriptions: - Pepcid 20 mg Oral Tablet - take 1 tablet by ORAL route every 12 hours for 10 days; 20 tablet; Refills: 0, [facility] Product Selection Permitted - Prednisone 20 mg Oral Tablet - take 1 tablet by ORAL route once daily for 5 days; 5 tablet; Refills: 0, [facility] Product Selection Permitted - Albuterol Sulfate 2.5 mg /3 mL (0.083 %) Inhalation Solution for Nebulization - inhale 1 unit by NEBULIZATION route every 8 hours As needed; 1 box; Refills: 0, [facility] Product Selection Permitted - Klonopin 1 mg Oral Tablet - take 1 tablet by ORAL route every 12 hours As needed; 20 tablet; Refills: 0, [facility] Product Selection Permitted - albuterol sulfate 90 mcg/actuation Inhalation HFA aerosol inhaler - inhale 2 puff by INHALATION route every 4-6 hours; 1 Pump; Refills: 0, Product jmm Selection Permitted Signatures: Dispatcher [employer] EDJustus Perrin MD MD cha Nieto, Roman, MD MD rn Leal, Jahala, RN RN jl7 Jo Ann Huynh Victoria RN RN juan1 Dorita Dominguez 5 Shereen Marinelli, RN RN kd3 Corrections: (The following items were deleted from the chart) 05:51 05:48 Constitutional: This is a well developed, well nourished patient who is awake, rn alert, and in no acute distress. rn 06:33 05:47 SOLU-Medrol (methylPrednisoLONE) 125 mg IVP once ordered. rn kd3
[2021-09-11] MEDS ORDERED: HYDRALAZINE HCL 10 MG TABLET ONE (10:29)
[2021-09-11] MEDS ORDERED: lisinopriL 20 MG TAB ONE (10:29)
[2021-09-11] MEDS ORDERED: METOPROLOL TAR 50 MG TAB ONE (10:29)
[2021-09-11] MEDS ORDERED: AMLODIPINE 10 MG TAB ONE (10:30)
[2021-09-11 10:56] VITALS: TEMP 97.8
[2021-09-11 11:02] VITALS: BP 147/90; O2SAT 97
--- NOTE | 2021-09-11 13:33 | RAD REPORT ---
EXAM DESCRIPTION: RAD - Chest Single View - 09/11/2021 6:00 am TECHNIQUE: Chest radiograph single view. CLINICAL HISTORY: Chest pain COMPARISON: None . FINDINGS: Heart: Cardiac silhouette is at the upper limit of normal in size. Mediastinum/Vessels: Normal contour. Lungs/Pleural space: No infiltrate, effusion, or pneumothorax. Bony thorax: No acute osseous abnormality. Life support devices: None. IMPRESSION: No pulmonary infiltrates are identified. Electronically signed by: Destiny Garcia MD 09/11/2021 6:14 AM CDT Due to temporary technical issues with the PACS/Fluency reporting system, reports are being signed by the in house radiologists without review as a courtesy to insure prompt reporting. The interpreting radiologist is fully responsible for the content of the report.
== END 2021-09-11 10:50 | disposition home or self-care (01) ==
LOC: ER 05:38
DX: J44.1 Chronic obstructive pulmonary disease with (acute) exacerbation (principal); R07.9 Chest pain, unspecified; D64.9 Anemia, unspecified; I10 Essential (primary) hypertension; F31.9 Bipolar disorder, unspecified; I48.91 Unspecified atrial fibrillation; Z21 Asymptomatic human immunodeficiency virus [HIV] infection status; Z88.1 Allergy status to other antibiotic agents; Z88.2 Allergy status to sulfonamides; Z88.5 Allergy status to narcotic agent; Z88.8 Allergy status to other drugs, medicaments and biological substances
CPT/HCPCS: 93005 ×2; 87040 ×2; 85025; 80048; 36415; 85610; 85730; 84484 ×2; 83880; 71045; 96375; 96372; 96374; 99285; J1940; J7512; J2930; J2405; J1170

== ENCOUNTER 2021-09-18 00:20 | Emergency (ER) | payer OTHER ==
--- OUTSIDE RECORDS SUMMARY | 2021-09-18 00:30 | XMS REPORT | Continuity of Care Document ---
:1955 Author Organization [facility] t Address [address] [place] [address] Care Team Providers Name Role Phone Francisco Rahman Primary Care Physician Ashely Attending Clinician Unavailable JENNY Attending Clinician Unavailable SELF Attending Clinician Unavailable Ronald DHILLON Attending Clinician [facility] Attending Clinician Unavailable Ap JENKINS Attending Clinician Doctor Unassigned, Name Attending Clinician Unavailable Yazmin JENKINS Attending Clinician Luisana Maharaj NP Attending Clinician Prabhu SANCHEZ Attending Clinician Unavailable Devin EXAMINATION SUPERVISOR, R Attending Clinician Clark SANCHEZ Attending Clinician Unavailable Diana SANCHEZ Attending Clinician Unavailable Remigio JENKINS V. Attending Clinician HEMATPOUR Attending Clinician Unavailable DO SYL Attending Clinician Unavailable Kristen Rahman Admitting Clinician Unavailable Ashely Admitting Clinician Unavailable YAZMIN Admitting Clinician Unavailable DO SYL Admitting Clinician Unavailable Payers Payer Name Policy Type Policy Number Effective Date Expiration Date S gabino [facility] [id number] 2012 [employer] 00:00:00 [employer] [id number] 2019 BEHAVIORAL 00:00:00 SOLUTIONS [place]ICAID OF [place] [id number] 2020 00:00:00 Problems Condition Condition Condition Status Onset Resolution Last Treating Co mments Source Name Details Category Date Date Treatment Clinician Date Gastropare Gastropare Disease Active Overview : Methodi sis sis 4-[address] 00:00: [facility] 00 note l might be different from the original. Added automatic ally from request for surgery [id number] Dysphagia Dysphagia Disease Active Overview: Methodi 4-[address] 00:00: g of this [facility]osp[facility] 00 note l might be different from the original. Added automatic ally from request for surgery [id number] CCL / EPS Diagnosis Active 2020-10-15 Memoria PVI 3-30 17:07:00 l ABLATION CCL / 00:00: [place] W/ CARTO / EPS PVI 00 GA / T ABLATION W/ CARTO / GA / T Active 08/19/2020 [facility] Food Food Disease Active 2019-05 [...] (BMI 2-19 ity of 30-39.9) 30-39.9) 00:00: [place] [facility] Anemia Anemia Disease Active 2014-05 Univers 0-03 ity of 00:00: [place] [facility] Hypovolemi Hypovolemi Disease Active 2014-05 U nivers a due to a due to 0-02 ity of hemorrhage hemorrhage 00:[place] [facility] Chest pain Chest pain Disease Active 2014-05 U nivers 0- ity of 00:00: [place] [facility] 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:00: [place] shoulder shoulder 00 Medica l arthroplas arthroplas Br anch ty ty Posttrauma Posttrauma Disease Active U nivers tic stress tic stress 09-27 it y of disorder disorder 00:00: [place] [facility] 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 00:00: [place] virus virus Medical (HIV) (HIV) Branch disease disease Bipolar 2 Bipolar 2 Disease Active Uni vers disorder disorder 11-18 ity of 00:00: [place] [facility] Chronic Chronic Disease Active Univers hepatitis hepatitis 11-18 ity of C C 00:00: [place] [facility] Hypertensi Hypertensi Disease Active U nivers on on 11-18 ity of 00:00: [place] [facility] Allergies, Adverse Reactions, Alerts Allergy Allergy Status Severity Reaction(s) Onset Inactive Treating Comm ents Source Name Type Date Date Clinician sulfamet DA Active SV N/V [facility] hoxazole 1-25 Clear 00:00: Garcia 00 [facility] trimetho DA Active SV [facility] prim 1-25 Clear 00:00: Garcia [facility] codeine DA Active SV N/V [facility] 1-25 Clear 00:00: Garcia [facility] Metoclop Propensi Active [place] ramide ty [...] [place] [facility] TRIMETHO DRUG Active Hives 2018- Univers PRIM INGREDI 208 ity of 00:00: [place] 00 [facility] Fentanyl Drug Active Other - See Unknown Un matt Allergy comments 2 reaction ity o f 00:00: [place] 00 [facility] Trimetho Propensi Active Hives 2017- Univer s prim ty to 2 ity [...] Hospita reaction 00 l s to drug SULFAMET DRUG Active High Unknown-Cmnt 2015-05 Un matt HOXAZOLE INGREDI 2- ity of 00:00: [place] 00 [facility] Sulfamet Propensi Active Other - See 2015-05 Stomach Univers hoxazole ty to comments 06-24 pain ity of adverse 00:00: [place] reaction 00 Medical s Branch METOCLOP DRUG Active Anxiety Univers RAMIDE INGREDI 9-25 ity of HCL 00:00: [place] 00 [facility] Branch Metoclop Propensi Active Anxiety 2014- Unive rs ramide ty to 9-25 ity [...] Date Stop Date Source Natural father Hypertension [facility] Natural father [facility] Natural father Diabetes [facility] Natural father Other - see comments [facility] mother Cancer [facility] Social History Social Habit Start Date Stop Date Quantity Comments [facility] Alcohol Comment History of tobacco Smoker [facility] use Hospital History SDOH [facility] Alcohol Frequency Hospita l History SDOH [facility] Alcohol Std Drinks Hospit al History SDOH [facility] Alcohol Binge Hospital Exposure to Not sure University of SARS-CoV-2 (event) [facility] Alcohol intake 2021-07-14 2021-07-14 Ex-drinker [facility] 00:00:00 00:00:00 (finding) Tobacco use and 2020-10-31 2020-10-31 Smokeless tobacco [facility] exposure 00:00:00 00:00:00 non-user Cigarettes smoked 2020-09-05 2020-09-[address] current (pack per 00:00:00 00:00:00 Hospita l day) - Reported Cigarette 2020-09-05 2020-09-05 [facility] pack-years 00:00:00 00:00:00 Hospital Tobacco Comment 2015-02-14 2015-02-14 Smokes approx 1-2 Un iversity of 00:00:00 00:00:00 cigarettes per [place] [facility] porfirio day when she Branch smokes Sex [birth year] [facility] 00:00:00 00:00:00 Smoking Status Start Date Stop Date Source Former smoker 2020-08-06 00:00:00 2020-08-06 00:00:00 [facility] Medications Ordered Filled Start Stop Current Ordering Indication Dosage Frequency Signature Comments Components Source Medication Medication Date Date Medication? Clinician (SIG) Name Name buPROPion Yes [id number] 150mg Take 1 U nivers XL 4-12 tablet by ity of (WELLBUTRIN 00:00: mouth [place] XL) 150 mg 00 daily. Medical 24 hr Branch tablet busPIRone Yes [id number] 30mg Take 1 Un matt 30 mg 4-12 tablet by ity of tablet 00:00: mouth 2 [place] 00 (two) Medical times Branch daily. SERTraline Yes [id number] 200mg Take 2 Univers 100 mg 4-12 tablets by ity of tablet 00:00: mouth [place] 00 daily. Medical Branch raltegravir Yes [id number] 400mg Take 1 Univers (ISENTRESS) 3-28 tablet by ity of 400 mg 00:00: mouth 2 [place] tablet 00 (two) Medical times Branch daily. LORazepam 1 Yes [id number] 1mg Take 1 Univers mg tablet 3-21 tablet by ity o f 00:00: mouth 3 [place] 00 (three) Medical times Branch daily as needed (anxiety). raltegravir Yes 400mg Q.5D Take 400 U T (Isentress) 2-22 mg by Health 400 MG 09:09: mouth 2 tablet 52 (two) times a day. LORazepam 1 2021- No [id number] 1mg Take 1 Univers mg tablet 2-21 [...] MG 00 times a tablet day. buPROPion 2021- No [id number] 150mg Take 1 Univers XL -24 -12 tablet by ity of (WELLBUTRIN 00:00: [place] XL[place] 150 mg 00 :00 daily. Medical 24 hr Branch tablet busPIRone 2021- No [id number] 30mg Take 1 U nivers 30 mg 24 -12 tablet by ity of tablet 00:00: 00:00 mouth 2 [place] 00 :00 (two) Medical times Branch daily. SERTraline 2021- No [id number] 200mg Take 2 Univers 100 mg 24 -12 tablets by ity of tablet 00:00: 00:00 mouth [place] 00 :00 daily. Medical Branch emtricitabi Yes [id number] Take one Univers ne-tenofovi 1-20 po daily ity of r alafen 00:00: [place] (DESCOVY) 00 Medical tablet Branch raltegravir 2021- No [id number] 400mg Take 1 Univers (ISENTRESS) -12 03-28 tablet by it y of 400 mg 00:00: 00:00 mouth 2 [place] tablet 00 :00 (two) Medical times Branch daily. metoprolol Yes [id number] Take 1 [facility] tartrate 7-26 tablet Health (Lopressor) 00:00: (100 mg 100 MG 00 total) by tablet mouth 2 (two) times a day AND 0.5 tablets (50 mg total) every night. metoprolol Yes [id number] Take 1 [facility] tartrate 7-26 tablet Health [...] 2 -[address] MG tablet 10:51: nightly [...] (affected area in groin) hydrALAZINE Yes 50mg Q.[id number] Take 50 mg Methodi (APRESOLINE 7-[id number] ) 50 MG 10:51: 3D (three) Hospita tablet 25 times a l day. busPIRone 0 Yes 20mg QD Take 20 mg Me thodi (BUSPAR) 10 7-[address] MG tablet 10:51: nightly. Hosp soren 25 l acetaminoph 0 [...] Hospita tablet 25 daily. l nystatin-tr Yes [id number] Apply to [facility] 11-25 area(s) 3 ity of cream 00:00: (three) [place] 00 times Medical daily. Branch budesonide- 2020- No 1{puff} QD Inhale 1 Methodi formoteroL 11-14 06-[address] (SYMBICORT) 14:37: 00:00 morning. H ospita 160-4.5 02 :00 l mcg/actuati on inhaler hydrALAZINE Yes [id number] 50mg Q.[id number] Take 1 UT (Apresoline 6-11 [id number] tablet (50 Health ) 50 MG 00:00: 3D mg total) tablet 00 by mouth 3 (three) times a day. hydrALAZINE Yes [id number] 50mg Q.[id number] Take 1 UT (Apresoline 6-11 [id number] tablet (50 Health ) 50 MG 00:00: [...] No 200mg 200 mg. UT (Zoloft) 30 -22 Health 100 MG 00:00: 00:00 tablet 00 :00 mupirocin Yes [facility] (Bactroban) 528 Health 2 % 00:00: ointment 00 mupirocin Yes [facility] (Bactroban) 528 Health 2 % 00:00: ointment 00 nystatin 2020- No [id number] Q.25D Take 5 mL Methodi (MYCOSTATIN 10-06 [...] Health 00:00: 00 Eliquis 5 0 Yes 5mg Q.5D Take 5 mg UT [...] e 4-10 Tablet l 14:00: should not [place] 00 be chewed or crushed. (Same as: [...] ia 4-10 (Same as: l 14:00: Zoloft) [place] 00 pantoprazol No Notes: Caesar lisa e 4-10 Tablet l 14:00: should not [place] 00 be chewed or crushed. (Same as: [...] ia 4-10 (Same as: l 14:00: Cordarone) [place] 00 Amlodipine No Notes: Memor ia 4-10 (Same as: l 14:00: Norvasc) [place] 00 emtricitabi No Notes: Caesar lisa ne 200 MG / 4-10 (Same as: l tenofovir 14:00: Descovy) Herm ariel alafenamide 00 Non-formul 25 MG Oral nancy Tablet [Descovy] Sertraline No Notes: Memor ia 4-10 (Same as: l 14:00: Zoloft) [place] 00 pantoprazol No Notes: Caesar lisa e 4-10 Tablet l 14:00: should not [place] 00 be chewed or crushed. (Same as: Protonix) Amiodarone No Notes: Memor ia 4-10 (Same as: l 14:00: Cordarone) [place] Amlodipine No Notes: Memor ia 4-10 (Same as: l 14:00: Norvasc) [place] emtricitabi No Notes: Caesar lisa ne 200 MG / 4-10 (Same as: l tenofovir 14:00: Descovy) Herm ariel alafenamide 00 Non-formul 25 MG Oral nancy Tablet [Descovy] Sertraline No Notes: Memor ia 4-10 (Same as: l 14:00: Zoloft) [place] 00 pantoprazol No Notes: Caesar lisa e 4-10 Tablet l 14:00: should not [place] 00 be chewed or crushed. (Same as: [...] ia 4-10 (Same as: l 14:00: Zoloft) [place] 00 pantoprazol No Notes: Caesar lisa e [...] M emoria 4-10 interfere l 02:00: w/enteral [place] 00 feeds - Take 1 hr before [...] 0.9% 4-10 (Same as: l 02:00: BD [place] Posiflush) Eliquis No Notes: Memoria 4-10 Same as: l 02:00: Eliquis [place] 00 Hydralazine No Notes: Caesar lisa Hydrochlori [...] M emoria 4-10 interfere l 02:00: w/enteral [place] 00 feeds - Take 1 hr before [...] 0.9% 4-10 (Same as: l 02:00: BD [place] 00 Posiflush) Eliquis No Notes: Memoria 4-10 Same as: l 02:00: Eliquis [place] 00 Hydralazine No Notes: Caesar lisa Hydrochlori 4-10 (Same as: l de 50 MG 02:00: Apresoline Her mitchell Oral Tablet 00 ) May interfere w/enteral feedings Take With Food Sucralfate No Notes: May M emoria 4-10 interfere l 02:00: w/enteral [place] 00 feeds - Take 1 hr before [...] not exceed l #3 00:12: 4gm/day of [place] acetaminop hen. (Same as: Tylenol with Codeine # 3) acetaminoph No Notes: Do M emoria en-codeine 4-10 not exceed l #3 00:12: 4gm/day of [place] acetaminop hen. (Same as: Tylenol with Codeine # 3) acetaminoph No Notes: Do M emoria en-codeine 4-10 not exceed l #3 00:12: 4gm/day of [place] acetaminop hen. (Same as: Tylenol with Codeine # 3) acetaminoph No Notes: Do M emoria en-codeine 4-10 not exceed l #3 00:12: 4gm/day of [place] acetaminop hen. (Same as: Tylenol with Codeine # 3) acetaminoph No Notes: Do M emoria en-codeine 4-10 not exceed l #3 00:12: 4gm/day of acetaminop hen. (Same as: Tylenol with Codeine # 3) Buspirone 2020-0 No Notes: Memori a 08-29 (Same As: l 22:00: BuSpar) Lisinopril 2020-0 No 40 mg, 1 Mem oria 4-09 tab, l 22:00: Route: PO, [place] Drug form: TAB, BID, Dosing Weight 97.273, kg, Start date: 08/29/20 17:00:00 CDT, Duration: 30 day, Stop date: 09/28/20 9:00:00 CDT metoprolol 2020-0 No 100 mg, 1 Me moria tartrate - tab, l 22:00: Route: PO, [place] 00 Drug form: TAB, BID, Dosing Weight [...] tartrate 4-09 tab, l 22:00: Route: PO, [place] 00 Drug form: TAB, BID, Dosing Weight [...] tartrate 4- tab, l 22:00: Route: PO, Drug [...] oria 4-09 tab, l 22:00: Route: PO, [place] 00 Drug form: TAB, BID, Dosing Weight 97.273, kg, Start date: 08/29/20 17:00:00 CDT, Duration: 30 day, Stop date: 09/28/20 9:00:00 CDT metoprolol 2021-0 No 100 mg, 1 Me moria tartrate 4-09 tab, l 22:00: Route: PO, [place] Drug form: TAB, BID, Dosing Weight 97.273, [...] tartrate 4-09 tab, l 22:00: Route: PO, [place] Drug form: TAB, BID, Dosing Weight 97.273, [...] oria -09 tab, l 22:00: Route: PO, [place] 00 Drug form: TAB, BID, Dosing Weight [...] Notes: Memoria 4-09 (Same l 17:07: as:MORPhin [place] 00 e Sulfate) Morphine No Notes: Memoria 4-09 (Same l 17:07: as:MORPhin [place] 00 e Sulfate) Morphine No Notes: Memoria 4-09 (Same l 17:07: as:MORPhin [place] 00 e Sulfate) Morphine No Notes: Memoria 4-09 (Same l 17:07: as:MORPhin [place] 00 e Sulfate) Morphine No Notes: Memoria 4-09 (Same l 17:07: as:MORPhin [place] 00 e Sulfate) Morphine No Notes: Memoria 4-09 (Same l 17:07: as:MORPhin [place] 00 e Sulfate) buPROPion No 150 mg, [...] 08-29 Drug form: l 15:40: INJ, ONCE, [place] 00 Stop date: 08/29/20 10:40:00 CDT neostigmine 0 [...] 30 tab, 0 coated Refill(s), tablet Pharmacy: [facility] 149, 162.56, cm, 08/29/20 5:30:00 CDT, Height, 97.273, kg, 08/29/20 5:30:00 CDT, Weight pantoprazol 2021-0 Yes 40 mg = 1 M emoria e 40 mg 4-09 tab, PO, l oral 15:27: Daily, # [place] enteric 00 30 tab, 0 coated Refill(s), tablet Pharmacy: [facility] 149, 162.56, cm, 08/29/20 5:30:00 CDT, Height, 97.273, kg, 08/29/20 5:30:00 CDT, Weight pantoprazol 2021-0 Yes 40 mg = 1 M emoria e 40 mg 4-09 tab, PO, l oral 15:27: Daily, # [place] enteric 00 30 tab, 0 coated Refill(s), tablet Pharmacy: [facility] 149, 162.56, cm, 08/29/20 5:30:00 CDT, Height, 97.273, kg, 08/29/20 5:30:00 CDT, Weight pantoprazol 1-0 Yes 40 mg = 1 M emoria e 40 mg 4-09 tab, PO, l oral 15:27: Daily, # [place] enteric 00 30 tab, 0 coated Refill(s), tablet Pharmacy: [facility] 149, 162.56, cm, 08/29/20 5:30:00 CDT, Height, 97.273, kg, 08/29/20 5:30:00 CDT, Weight pantoprazol 2021-0 Yes 40 mg = 1 M emoria e 40 mg 4-09 tab, PO, l oral 15:27: Daily, # [place] enteric 00 30 tab, 0 coated Refill(s), tablet Pharmacy: [facility] 149, 162.56, cm, 08/29/20 5:30:00 CDT, Height, 97.273, kg, 08/29/20 5:30:00 CDT, Weight pantoprazol 2021-0 Yes 40 mg = 1 M emoria e 40 mg 4-09 tab, PO, l oral 15:27: Daily, # [place] enteric 00 30 tab, 0 coated Refill(s), tablet [facility], 162.56, cm, 08/29/20 5:30:00 CDT, Height, 97.273, kg, 08/29/20 5:30:00 CDT, Weight pantoprazol 2020-0 Yes 40 mg = 1 M emoria e 40 mg 4-09 tab, PO, l oral 15:27: Daily, # [place] enteric 00 30 tab, 0 coated Refill(s), tablet Pharmacy: [facility] 149, 162.56, cm, 08/29/20 5:30:00 [...] Skylar nn 00 tab, 0 Refill(s), Pharmacy: [facility] 149, 162.56, cm, 08/29/20 5:30:00 CDT, Height, 97.273, kg, 08/29/20 5:30:00 CDT, Weight pantoprazol 2020-0 No 40 mg = 1 M emoria e 40 mg 4-09 tab, PO, l oral 15:26: Daily, # [place] enteric 00 30 tab, 0 coated Refill(s) tablet sucralfate 2020-0 Yes 1 gm = 1 Mem oria 1 g oral 4-09 tab, PO, l tablet 15:26: Q12H, # 28 Skyl[place] nn 00 tab, 0 Refill(s), Pharmacy: [place] [id number], 162.56, cm, 08/29/20 5:30:00 CDT, Height, 97.273, kg, 08/29/20 5:30:00 CDT, Weight pantoprazol 1-0 No 40 mg = 1 M emoria e 40 mg 4-09 tab, PO, l oral 15:26: Daily, # [place] enteric 00 30 tab, 0 coated Refill(s) tablet sucralfate 2020-0 Yes 1 gm = 1 Mem oria 1 g oral 4-09 tab, PO, l tablet 15:26: Q12H, # 28 Skyl[place] nn 00 tab, 0 Refill(s), Pharmacy: [facility] 149, 162.56, cm, 08/29/20 5:30:00 CDT, Height, 97.273, kg, 08/29/20 5:30:00 CDT, Weight pantoprazol 2020-0 No 40 mg = 1 M emoria e 40 mg 4-09 tab, PO, l oral 15:26: Daily, # [place] enteric 00 30 tab, 0 coated Refill(s) tablet sucralfate 2020-0 Yes 1 gm = 1 Mem oria 1 g oral 4-09 tab, PO, l tablet 15:26: Q12H, # 28 [place]yl[place] nn 00 tab, 0 Refill(s), Pharmacy: [facility] 149, 162.56, cm, 08/29/20 5:30:00 CDT, Height, 97.273, kg, 08/29/20 5:30:00 CDT, Weight pantoprazol 2020-0 No 40 mg = 1 M emoria e 40 mg 4-09 tab, PO, l oral 15:26: Daily, # [place] enteric 00 30 tab, 0 coated Refill(s) tablet sucralfate 2020-0 Yes 1 gm = 1 Mem oria 1 g oral 4-09 tab, PO, l tablet 15:26: Q12H, # 28 Skyl[place] nn 00 tab, 0 Refill(s), Pharmacy: [place] [address], 162.56, cm, 08/29/20 5:30:00 CDT, Height, 97.273, kg, 08/29/20 5:30:00 CDT, Weight pantoprazol 2020-0 No 40 mg = 1 M emoria e 40 mg 4-09 tab, PO, l oral 15:26: Daily, # [place] enteric 00 30 tab, 0 coated Refill(s) tablet sucralfate 2020-0 Yes 1 gm = 1 Mem oria 1 g oral 4-09 tab, PO, l tablet 15:26: Q12H, # 28 Skyl[place] nn 00 tab, 0 Refill(s), Pharmacy: [facility] 149, 162.56, cm, 08/29/20 5:30:00 CDT, Height, 97.273, kg, 08/29/20 5:30:00 CDT, Weight pantoprazol No 40 mg = 1 M emoria e 40 mg 4-09 tab, PO, l oral 15:26: Daily, # [place] enteric 00 30 tab, 0 coated Refill(s) tablet sucralfate Yes 1 gm = 1 Mem oria 1 g oral 4-09 tab, PO, l tablet 15:26: Q12H, # 28 [place]yl[place] nn 00 tab, 0 Refill(s), Pharmacy: [facility] 149, 162.56, cm, 08/29/20 5:30:00 CDT, Height, 97.273, kg, 08/29/20 5:30:00 CDT, Weight Saline No Notes: Memoria Flush 0.9% 4-09 (Same as: l 15:25: BD [place] 00 Posiflush) Lorazepam No Notes: Memori a 4-09 (Same as: l 15:25: Ativan) Saline No Notes: Memoria Flush 0.9% 4-09 (Same as: l 15:25: BD [place] 00 Posiflush) Lorazepam No Notes: Memori a 4-09 (Same as: l 15:25: Ativan) Saline No Notes: Memoria Flush 0.9% 4-09 (Same as: l 15:25: BD [place] 00 Posiflush) Saline No Notes: Memoria Flush 0.9% 4-09 (Same as: l 15:25: BD [place] 00 Posiflush) Lorazepam No Notes: Memori a 4-09 (Same as: l 15:25: Ativan) [place] 00 Lorazepam No Notes: Memori a 4-09 (Same as: l 15:25: Ativan) Saline No Notes: Memoria Flush 0.9% 4-09 (Same as: l 15:25: BD [place] 00 Posiflush) Lorazepam No Notes: Memori a 4-09 (Same as: l 15:25: Ativan) Saline No Notes: Memoria Flush 0.9% 4-09 (Same as: l 15:25: BD Posiflush) Lorazepam [...] Drug form: l mg + 15:00: INJ, [place] 00 Dosing Weight 97.3, kg, Start date: [...] Memori a 08-29 Route: l 14:01: IVP, [place] 00 Q5Min, Dosing Weight 97.273, kg, PRN Elevated BP, Start date: 08/29/20 9:01:00 CDT, Duration: 5 doses or times, Stop date: Limited # of times Acetaminoph 2020-0 No 1,000 mg, M emoria en 08-29 Route: PO, l 14:01: Drug form: [place] 00 TAB, ONCE, Dosing Weight 97.273, kg, [...] Memori a 08-29 Route: l 14:01: IVP, [place] 00 Q2MIN, Dosing Weight 97.273, kg, PRN Narcotic Reversal, Start date: 08/29/20 9:01:00 CDT, Duration: 8 doses or times, Stop date: Limited # of times Ondansetron 1-0 No 4 mg, Memor ia 08-29 Route: l 14:01: IVP, ONCE, [place] 00 Dosing Weight 97.273, kg, PRN Nausea [...] oria ne 08-29 Route: l 14:01: IVP, [place] 00 Q5Min, Dosing Weight 97.273, kg, PRN Pain Score 7-10, Start date: 08/29/20 9:01:00 CDT, Duration: 4 doses or times, Stop date: Limited # of times Flumazenil 1-0 No 0.2 mg, Caesar lisa 08-29 Route: l 14:01: IVP, PRN, [place] 00 Dosing Weight 97.273, kg, PRN Benzodiaze [...] ia 08-29 Route: l 14:01: IVP, ONCE, [place] 00 Dosing Weight 97.273, kg, PRN Nausea [...] 08-29 Route: PO, l 14:01: Drug form: [place] 00 TAB, ONCE, Dosing Weight 97.273, kg, [...] oria ne 08-29 Route: l 14:01: IVP, [place] 00 Q5Min, Dosing Weight 97.273, kg, PRN Pain Score 7-10, Start date: 08/29/20 9:01:00 CDT, Duration: 4 doses or times, Stop date: Limited # of times Flumazenil 1-0 No 0.2 mg, Caesar lisa 08-29 Route: l 14:01: IVP, PRN, [place] 00 Dosing Weight 97.273, kg, PRN Benzodiaze pine Reversal, Initial dose, Start date: 08/29/20 9:01:00 CDT, Duration: 30 day, Stop date: 09/28/20 9:00:00 CDT Naloxone 2021-0 No 0.4 mg, Memori a 08-29 Route: l 14:01: IVP, [place] 00 Q2MIN, Dosing Weight 97.273, kg, PRN Narcotic Reversal, Start date: 08/29/20 9:01:00 CDT, Duration: 8 doses or times, Stop date: Limited # of times Ondansetron 1-0 No 4 mg, Memor ia 08-29 Route: l 14:01: IVP, ONCE, [place] 00 Dosing Weight 97.273, kg, PRN Nausea & Vomiting, Start date: 08/29/20 9:01:00 CDT Labetalol 2021-0 No 10 mg, Memori a 08-29 Route: l 14:01: IVP, [place] 00 Q5Min, Dosing Weight 97.273, kg, PRN Elevated BP, Start date: 08/29/20 9:01:00 CDT, Duration: 5 doses or times, Stop date: Limited # of times Acetaminoph 2021-0 No 1,000 mg, M emoria en 08-29 Route: PO, l 14:01: Drug form: [place] 00 TAB, ONCE, Dosing Weight 97.273, kg, [...] oria ne 08-29 Route: l 14:01: IVP, [place] 00 Q5Min, Dosing Weight 97.273, kg, PRN Pain Score 7-10, Start date: 08/29/20 9:01:00 CDT, Duration: 4 doses or times, Stop date: Limited # of times Labetalol 1-0 No 10 mg, Memori a 08-29 Route: l 14:01: IVP, [place] 00 Q5Min, Dosing Weight 97.273, kg, PRN [...] - Route: PO, l de 5 MG 14:: Drug form: Herm ariel Oral Tablet 00 TAB, Q4H, Dosing Weight 97.273, kg, PRN Pain Score 4-6, Start date: 08/29/20 9:01:00 CDT, Duration: 30 day, Stop date: 09/28/20 9:00:00 CDT Hydromorpho 2021-0 No 0.5 mg, Mem oria ne 08-29 Route: l 14:01: IVP, [place] 00 Q5Min, Dosing Weight 97.273, kg, PRN Pain Score 7-10, Start date: 08/29/20 9:01:00 CDT, Duration: 4 doses or times, Stop date: Limited # of times Flumazenil 2021-0 No 0.2 mg, Caesar lisa 4-09 Route: l 14:01: IVP, PRN, [place] 00 Dosing Weight 97.273, kg, PRN Benzodiaze pine Reversal, Initial dose, Start date: 08/29/20 9:01:00 CDT, Duration: 30 day, Stop date: 09/28/20 9:00:00 CDT Naloxone 2021-0 No 0.4 mg, Memori a 4- Route: l 14:01: IVP, [place] 00 Q2MIN, Dosing Weight 97.273, kg, PRN Narcotic Reversal, Start date: 08/29/20 9:01:00 CDT, Duration: 8 doses or times, Stop date: Limited # of times Flumazenil 2021-0 No 0.2 mg, Caesar lisa 4- Route: l 14:01: IVP, PRN, [place] 00 Dosing Weight 97.273, kg, PRN Benzodiaze pine Reversal, Initial dose, Start date: 08/29/20 9:01:00 CDT, Duration: 30 day, Stop date: 09/28/20 9:00:00 CDT Ondansetron 2021-0 No 4 mg, Memor ia 4- Route: l 14:01: IVP, ONCE, [place] 00 Dosing Weight 97.273, kg, PRN Nausea & Vomiting, Start date: 08/29/20 9:01:00 CDT Naloxone 2021-0 No 0.4 mg, Memori a 4- Route: l 14:01: IVP, [place] 00 Q2MIN, Dosing Weight 97.273, kg, PRN Narcotic Reversal, Start date: 08/29/20 9:01:00 CDT, Duration: 8 doses or times, Stop date: Limited # of times Ondansetron 2021-0 No 4 mg, [facility] [place] 4- Route: l 14:01: IVP, ONCE, [place] 00 Dosing Weight 97.273, kg, PRN Nausea & Vomiting, Start date: 08/29/20 9:01:00 CDT Labetalol 1-0 No 10 mg, [facility] 08-29 Route: l 14:01: IVP, [place] 00 Q5Min, Dosing Weight 97.273, kg, PRN Elevated BP, Start date: 08/29/20 9:01:00 CDT, Duration: 5 doses or times, Stop date: Limited # of times Acetaminoph 2021-0 No 1,000 mg, M emoria en 08-29 Route: PO, l 14:01: Drug form: [place] 00 TAB, ONCE, Dosing Weight 97.273, kg, [...] lisa 08-29 Route: l 14:01: IVP, PRN, [place] 00 Dosing Weight 97.273, kg, PRN Benzodiaze pine Reversal, Initial dose, Start date: 08/29/20 9:01:00 CDT, Duration: 30 day, Stop date: 09/28/20 9:00:00 CDT Naloxone 1-0 No 0.4 mg, Memori a 08-29 Route: l 14:01: IVP, [place] 00 Q2MIN, Dosing Weight 97.273, kg, PRN [...] oria ne 08-29 Route: l 14:01: IVP, [place] 00 Q5Min, Dosing Weight 97.273, kg, PRN [...] form: l 10 13:15: INJ, Start Marty 00 date: 08/29/20 8:15:00 CDT, Stop date: 08/29/20 9:15:00 CDT norepinephr 2021-0 No Route: IV, Memoria ine (ANES) 08-29 Drug form: l 10 13:15: INJ, Start [place] microgram 00 date: 08/29/20 8:15:00 CDT, Stop date: 08/29/20 9:15:00 CDT norepinephr 2020-0 No Route: IV, Memoria ine (ANES) 08-29 Drug form: l 10 13:15: INJ, Start Marty microgram date: 08/29/20 8:15:00 CDT, Stop date: 08/29/20 9:15:00 CDT norepinephr 2020-0 No Route: IV, Memoria ine (ANES) 08-29 Drug form: l 10 13:15: INJ, Start [place] microgram date: 08/29/20 8:15:00 CDT, Stop date: 08/29/20 9:15:00 CDT norepinephr 2020-0 No Route: IV, Memoria ine (ANES) 08-29 Drug form: l 10 13:15: INJ, Start [place] microgram date: 08/29/20 8:15:00 CDT, Stop date: 08/29/20 9:15:00 CDT norepinephr 2020-0 No Route: IV, Memoria ine (ANES) 08-29 Drug form: l 10 13:15: INJ, Start [place] microgram date: 08/29/20 8:15:00 CDT, Stop date: [...] 4-09 Total l 0.9% IV 12:30: Volume: [place] (ANES) 1000 00 1,000, mL Start date: 08/29/20 7:30:00 CDT, Stop date: 08/29/20 8:30:00 CDT Sodium 2021-0 No Route: IV, Memor ia Chloride 4-09 Total l 0.9% IV 12:30: Volume: [place] (ANES) 1000 00 1,000, mL Start date: 08/29/20 7:30:00 CDT, Stop date: 08/29/20 8:30:00 CDT Sodium 2021-0 No Route: IV, Memor ia Chloride 4-09 Total l 0.9% IV 12:30: Volume: [place] (ANES) 1000 00 1,000, mL Start date: [...] 4-09 Total l 0.9% IV 12:30: Volume: [place] (ANES) 1000 00 1,000, mL Start date: [...] PO, l Hydrochlori 11:42: Q24H, # 30 [place] de 150 MG 00 tab, 0 Extended Refill(s) Release Tablet 24 HR Yes 150 mg = 1 Memori a Bupropion -09 tab, PO, l Hydrochlori 11:42: Q24H, # 30 [place] de 150 MG 00 tab, 0 Extended Refill(s) Release Tablet 24 HR Yes 150 mg = 1 Memori a Bupropion 4-09 tab, PO, l Hydrochlori 11:42: Q24H, # 30 [place] de 150 MG 00 tab, 0 Extended Refill(s) Release Tablet 24 HR Yes 150 mg = 1 Memori a Bupropion 4-09 tab, PO, l Hydrochlori 11:42: Q24H, # 30 [place] de 150 MG 00 tab, 0 Extended Refill(s) Release Tablet 24 HR Yes 150 mg = 1 Memori a Bupropion 4-09 tab, PO, l Hydrochlori 11:42: Q24H, # 30 [place] de 150 MG 00 tab, 0 Extended Refill(s) Release Tablet 24 HR 2020-0 Yes 150 mg = 1 Memori a Bupropion - tab, PO, l Hydrochlori 11:42: Q24H, # 30 [place] de 150 MG 00 tab, 0 Extended Refill(s) Release Tablet 24 HR 2020-0 Yes 150 mg = 1 Memori a Bupropion - tab, PO, l Hydrochlori 11:42: Q24H, # 30 [place] de 150 MG 00 tab, 0 Extended [...] 08-29 Q12H, tab, l Tablet 11:41: 0 [place] [Eliquis] 00 Refill(s), For Atrial Fibrilatio n apixaban 5 2020-0 Yes 5 mg, PO, Me moria MG Oral 4- Q12H, tab, l Tablet 11:41: 0 [place] [Eliquis] 00 Refill(s), For Atrial Fibrilatio n apixaban 5 2020-0 Yes 5 mg, PO, Me moria MG Oral - Q12H, tab, l Tablet 11:41: 0 [place] [Eliquis] 00 Refill(s), For Atrial Fibrilatio n [...] tab, PO, l tablet 11:38: Daily, # [place] 00 90 tab, 3 Refill(s) AMIODarone 2020-0 [...] sucralfate 2020- No Method i (CARAFATE) 08-[address] 1 gram 00:00: 00:00 Hospita tablet 00 :00 l Eliquis 5 Yes Methodi mg tablet [facility] 00:00: Hospita 00 l apixaban Yes 5mg Take 5 mg Univ ers (ELIQUIS) 5 3-17 by mouth 2 it y of mg tablet 08:18: (two) [place] 30 times Medical daily. Branch amiodarone Yes 100mg Take 100 Un matt 100 mg 3-17 mg by ity of tablet 08:18: mouth [place] 30 daily. Medical Branch predniSONE Yes [facility] (Deltasone) 3-13 Health 20 MG 00:00: tablet 00 predniSONE Yes [facility] (Deltasone) 3-13 Health 20 MG 00:00: tablet 00 buPROPion Yes bupropion UT [...] 90 4-14 ity of mcg/actuati 00:00: [place] on inhaler 00 Medical Branch albuterol Yes [...] 00:00: (Dyazide) 00 37.5-25 MG capsule triamterene 2019- Yes 1{each} 1 each. UT -hydroCHLOR -27 [...] Immunizations Ordered Filled Immunization Date Status Comments [facility] e Immunization Name Name PFIZER COVID-19 2020-07-23 Completed [facility] VACCINATION 00:00:00 [facility] PFIZER COVID-19 2020-07-02 Completed [facility] MRNA VACCINATION 00:00:00 [facility] Influenza Virus 2017-03-08 Completed Universit y of Vaccine 00:00:00 [facility] Influenza Virus 2014-01-30 Completed Universit y of Vaccine (3+ yrs) 00:00:00 [facility] dical Branch Pneumococcal 13 2014-01-30 Completed Universit y of Conjugate, PCV13 00:00:00 [facility] dical (Prevnar 13) Branch Pneumococcal 2012-02-16 Completed University o f Polysaccharide, 00:00:00 [facility] PPSV23 (PNEUMOVAX) Branch Influenza Virus 2012-02-16 Completed Universit y of Vaccine 00:00:00 [facility] PPD (TB) 2012-02-16 Completed University of 00:00:00 [facility] Hep B, Adol or Pedi 2011-09-01 Completed Unive rsity of Dosage 00:00:00 [facility] Hep B, Adol or Pedi 2011-03-17 Completed Unive rsity of Dosage 00:00:00 [facility] Influenza Virus 2011-02-10 Completed Universit y of Vaccine 00:00:00 [facility] Hep B, Adol or Pedi 2011-02-10 Completed Unive rsity of Dosage 00:00:00 [facility] PPD (TB) 2010-11-18 Completed University of 00:00:00 [facility] TDAP (ADACEL) 2010-11-18 Completed University of VACCINE 00:00:00 [facility] HEPATITIS A 2004-03-02 Completed University of 00:00:00 [facility] HEPATITIS A 2003-08-01 Completed University of 00:00:00 [facility] Pneumococcal 2001-10-04 Completed University o f Polysaccharide, 00:00:00 [facility] ical PPSV23 (PNEUMOVAX) Branch PPD () 2001-10-04 Completed University of 00:00:00 [facility] Vital Signs Vital Name Observation Time Observation Value Comments Source Systolic blood 2021-07-14 15:18:00 142 mm[Hg] [facility] Diastolic blood 2021-07-14 15:18:00 76 mm[Hg] [facility] Heart rate 2021-07-14 15:18:00 61 /min [facility] height 2021-07-14 15:18:00 162.6 cm [facility] Body weight 2021-07-14 15:18:00 94.802 kg [facility] BMI 2021-07-14 15:18:00 35.87 kg/m2 [facility] Systolic blood 2021-08-21 13:13:00 191 mm[Hg] Univer sity of pressure [facility] Diastolic blood 2021-08-21 13:13:00 99 mm[Hg] Unive rsity of pressure [facility] Heart rate 2021-08-21 13:13:00 52 /min [facility] Body temperature 2021-08-21 13:11:00 36.5 Amina [facility] Respiratory rate 2021-08-21 13:11:00 16 /min [facility] Body height 2021-08-21 13:11:00 162.6 cm [facility] Body weight 2021-08-21 13:11:00 93.759 kg [facility] BMI 2021-08-21 13:11:00 35.48 kg/m2 [facility] Oxygen saturation in 2021-08-21 13:11:00 95 /min University Arterial blood by [facility] Pulse oximetry Branch Systolic blood 2020-12-08 15:48:00 125 mm[Hg] Method [facility] pressure Diastolic blood 2020-12-08 15:48:00 76 mm[Hg] [facility] pressure Heart rate 2020-12-08 15:48:00 64 /min [facility] Body temperature 2020-12-08 15:48:00 36.61 [facility] Respiratory rate 2020-12-08 15:48:00 17 /min [facility] Body height 2020-12-08 15:48:00 162.6 cm [facility] Body weight 2020-12-08 15:48:00 98.884 kg [facility] BMI 2020-12-08 15:48:00 37.42 kg/m2 [facility] Oxygen saturation in 2020-12-08 15:48:00 97 /min [facility] [place] [facility] Arterial blood by Pulse oximetry Respitory Rate 2020-08-30 13:00:00 Memori al [place] Systolic (mm Hg) 2020-08-30 13:00:00 Caesar rial [place] Diastolic (mm Hg) 2020-08-30 13:00:00 Mem orial [place] Systolic (mm Hg) 2020-08-30 11:00:00 Caesar rial [place] Diastolic (mm Hg) 2020-08-30 11:00:00 Mem orial [place] Temperature Oral (F) 2020-08-30 11:00:00 98.4 F [facility] Respitory Rate 2020-08-30 11:00:00 Memori al [place] Respitory Rate 2020-08-30 10:00:00 Memori al [place] Systolic (mm Hg) 2020-08-30 10:00:00 Caesar rial [place] Diastolic (mm Hg) 2020-08-30 10:00:00 Mem orial [place] Temperature Oral (F) 2020-08-30 00:00:00 96.9 F [facility] [place] Temperature Oral (F) 2020-08-29 11:26:00 97.6 F [facility] Height 2020-08-29 10:30:00 162.56 cm [facility] Weight 2020-08-29 10:30:00 [facility] BMI Calculated 2020-08-29 10:30:00 Darien Hammond Procedures Procedure Date / Time Performing Clinician Source Performed ECG 12-LEAD 2021-07-14 15:14:00 Elan Lira [facility] [id number] 2021-06-17 00:00:00 [facility] CONSENT/REFUSAL FOR 2021-06-15 16:11:59 [facility] DIAGNOSIS AND TREATMENT [place] [facility] ASSIGNMENT OF BENEFITS 2021-06-15 16:11:40 Doctor Unassigned, [facility] [place] [facility] GASTROINTESTINAL PANEL 2020-12-08 22:21:[address] [facility] XR ABDOMEN 1 VW 2020-12-08 18:06:32 Eliseo Glaser spital OR [place] < 1 HOUR 2020-09-05 22:39:00 Eliseo Glaser spital SURGICAL PATHOLOGY REQUEST 2020-09-05 21:54:00 Eliseo Glaser [facility] XR CHEST 1 VW PORTABLE 2020-09-05 19:55:00 Eliseo Glaser [facility] DISCHARGE PATIENT 2020-09-05 17:27:55 Lucas Harris [facility] [place] [facility] ID AN ELECTIVE 2020-09-05 16:47:23 Kirit [facility] ENDOTRACHEAL AIRWAY EGD, INTRAOPERATIVE 2020-09-05 16:27:00 [facility] 2020-09-05 15:04:00 Sarai Maharaj [facility] TIME (PTT) M. PROTHROMBIN TIME WITH INR 2020-09-05 15:04:00 Mindy Maharaj [facility] [place] [facility] MChelsie Plan of Care Planned Activity Planned Date Details Comments Source Future Scheduled 2021-08-26 Screening for [facility] Test 13:02:23 malignant neoplasm of cervix (procedure) [code = 873760566] Future Scheduled 2021-08-26 BREAST CANCER [facility] [place] [facility] Test 13:02:23 SCREENING [code = BREAST CANCER SCREENING] Future Scheduled 2021-08-26 COLONOSCOPY SCREENING [facility] Test 13:02:23 [code = COLONOSCOPY SCREENING] Future Scheduled 2021-08-26 [facility] Test 13:02:23 malignant neoplasm of lung (procedure) [code = 394256563] Future Scheduled 2021-08-26 SHINGLES VACCINES (#1) M [facility] Test 13:02:23 [code = SHINGLES VACCINES (#1)] Future Scheduled 2021-08-26 COVID-19 VACCINE (3 - Me [facility] Test 13:02:23 Pfizer risk 4-dose series) [code = COVID-19 VACCINE (3 - Pfizer risk 4-dose series)] Future Scheduled 2021-08-26 65+ [facility]CCAL [facility] Test 13:02:23 VACCINE (4 of 4 - PPSV23) [code = 65+ PNEUMOCOCCAL VACCINE (4 of 4 - PPSV23)] Future Scheduled 2021-08-26 INFLUENZA VACCINE Method [facility] Test 13:02:23 [code = INFLUENZA VACCINE] Encounters Start End Encounter Admission Attending Care Care Encounter Source Date/Time Date/Time Type Type Clinicians Facility Department ID 2021-08-03 Inpatient Ashely, EDUARDOCL OUTD [id number] [facility] 11:30:00 Mike [id number] [facility] 2021-07-14 Outpatient JENNY [facility] [id number] [place] 09:33:51 [facility] 2021-06-16 Inpatient RAUL Lund, EDUARDOCL OUTD [id number] [facility] 08:30:00 Mike [id number] [facility] 2021-06-15 Inpatient RAUL Lund, EDUARDOCL OUTD [id number] [facility] 10:30:00 Mike [id number] [facility] 2021-09-07 2021-09-07 Outpatient Marika KOEHLER [facility] [id number] Univers 08:00:00 08:00:00 EMERITA rodas [facility] 2021-08-21 2021-08-21 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 Santiago Cardenas 1.2.840.1 [id number] Univers 10:45:00 10:45:00 Visit [facility] 00035.1.1 ity of 3.104.2.7 [place] .3.244579 Medica l .8 Branch 2021-08-21 2021-08-21 Office [place], 1.2.840.8 [id number] Univers 08:30:00 09:00:00 Visit Santiago 66024.1.1 ity of 3.104.2.7 [place] .3.291105 Medica l .8 Branch 2021-08-21 2021-08-21 Travel 1.2.840.1 1.2.893.815 [id number] Univers 00:00:00 00:00:00 63697.1.1 350.1.13.10 ity of 3.104.2.7 4.[place].7.3.698 [place] .3.119538 084.8 Medica l .8 [facility] 2021-08-14 2021-08-14 Telephone East, 1.2.840.7 [id number] Univers 00:00:00 00:00:00 Santiago 94727.1.1 ity of 3.104.2.7 [place] .3.083802 Medica l .8 [facility] 2021-08-13 2021-08-13 Telephone East, 1.2.840.4 [id number] Univers 00:00:00 00:00:00 Santiago 64534.1.1 ity of 3.104.2.7 [place] .3.666584 Medica l .8 [facility] 2021-08-05 2021-08-05 Outpatient WINTER Leal HCAC[facility] [id number] [facility] 05:24:00 05:24:00 Mike 31 [facility] 2021-08-05 2021-08-05 Outpatient RAUL Lund, HCACL OUTD [id number] [facility] 05:24:00 05:24:00 Mike [id number] [facility] 2021-07-14 2021-07-14 Office KIMBERLEY Lira 6400 1.2.840.114 [id number] [place] 08:45:00 09:34:01 Visit Elan ROMERO 350.1.13.58 Health 9.2.7.2.686 [id number] 1 2021-07-09 2021-07-09 Telephone Ap, KIMBERLEY 6400 1.2.840.114 [id number] [place] 00:00:00 00:00:[address] 350.1.13.58 [facility] 9.2.7.2.686 [id number] 1 2021-06-17 2021-06-17 Inpatient RAUL Lund, HCACL INTE.02 [id number] [facility] 10:56:00 14:36:00 Mike [id number] [facility] 2021-06-17 2021-06-17 Inpatient RAUL Lund, HCACL INTE.02 [id number] [facility] 10:56:00 14:36:00 Mike 47 [facility] 2021-06-15 2021-06-15 Orders Doctor 1.2.840.1 [id number] Univers 00:00:00 00:00:00 Only Unassigned, 35864.1.1 ity of [place] 3.104.2.7 [place] .3.819862 Medica l .8 Branch 2021-06-15 2021-06-15 Travel 1.2.840.1 1.2.011.872 [id number] Univers 00:00:00 00:00:00 67954.1.1 350.1.13.10 ity of 3.104.2.7 4.2.7.3.698 [place] .3.026383 084.8 Medica l .8 Branch 2021-06-11 2021-06-11 Refill East, 1.2.840.0 [id number] Univers 00:00:00 00:00:00 Santiago 33745.1.1 ity of 3.104.2.7 [place] .3.076725 Medica l .8 Branch 2021-04-28 2021-04-28 Telephone Yazmin, 1.2.840.8 [id number] Methodi 00:00:00 00:00:[address] 3.430.2.7 Hospit a .3.219431 l .8 2021-03-31 2021-03-31 [facility], 1.2.840.1 [id number] Methodi 00:00:00 00:00:00 Only Sarai Lieberman 16037.1.1 979 s t 3.430.2.7 Hospit a .3.361826 l .8 2021-03-24 2021-03-24 Telephone Roberts [place], 1.2.840.9 [id number] Methodi 00:00:00 00:00:[address] 3.430.2.7 Hospit a .3.110391 l .8 2021-01-19 2021-01-19 Telephone Pelletier, 1.2.840.1 [id number] Methodi 00:00:00 00:00:[address] 3.430.2.7 Hospit a .3.553208 l .8 2020-12-12 2020-12-12 Office Hematpour, [facility] 6400 1.2.840.114 12 [id number] 07:42:02 08:18:[address] 350.1.13.58 9.2.7.2.686 [id number] 1 2020-12-09 2020-12-09 Telephone [facility], 1.2.840.1 [id number] Methodi 00:00:00 00:00:00 Sarai Lieberman 14815.1.1 316 s t 3.430.2.7 Hospit a .3.212961 l .8 2020-12-08 2020-12-08 [facility], 1.2.840.1 [id number] Methodi 12:35:54 23:59:00 Encounter Ray 65541.1.[address] 3.430.2.7 Hospit a .3.599756 l .8 2020-12-08 2020-12-08 [facility] 1.2.840.1 [id number] Methodi 17:25:00 17:30:[address] 3.430.2.7 Hospit a .3.464597 l .8 2020-12-08 2020-12-08 Office Yazmin, 1.2.840.1 [id number] Methodi 10:30:00 11:39:56 Visit Ray 16878.1.[address] 3.430.2.7 Hospit a .3.726805 l .8 2020-12-08 2020-12-08 Travel 1.2.840.1 1.2.371.512 [id number] Methodi 00:00:00 00:00:[address] 3.430.2.7 0.2.7.3.698 Ho spita .3.521027 084.8 l .8 2020-12-02 2020-12-02 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 [facility] 1.2.840.114 [id number] 10:20:06 10:36:19 Visit Y HEALTH 350.1.13.10 [facility] 4.2.7.2.686 [id number] 2020-11-25 2020-11-25 Office MEGHA Beltran 1.2.840.114 [id number] 11:06:30 11:58:14 Visit Robbi R BEHAVIORAL HEALTH CARE 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 350.1.13.10 REGIONAL 4.2.7.2.686 MATERNAL [id number] & CHILD 107 [facility] 2020-11-25 2020-11-25 [facility] 1.2.257.767 [id number] 00:00:00 00:00:00 Santiago Y HEALTH 350.1.13.10 CLINICS 4.2.7.2.686 [id number] 2020-11-25 2020-11-25 Telephone Devin [facility] 1.2.303.648 [id number] 00:00:00 00:00:00 Rossandynda R BEHAVIORAL HEALTH CARE COORDINATOR 350.1.13.10 REGIONAL 4.2.7.2.686 MATERNAL [id number] & CHILD 107 [facility] 2020-11-14 2020-11-14 Abstract Rodas, 1.2.840.1 [id number] Methodi 00:00:00 00:00:[address] 3.430.2.7 Hospit a .3.196731 l .8 2020-11-14 2020-11-14 Telephone Clark, 1.2.840.1 [id number] Methodi 00:00:00 00:00:[address] 3.430.2.7 Hospit a .3.533520 l .8 2020-11-07 2020-11-07 Telephone Diana, KIMBERLEY 6400 1.2.840.114 [id number] 00:00:00 00:00:[address] 350.1.13.58 9.2.7.2.686 [id number] 1 2020-10-27 2020-10-27 Telephone Yazmin, 1.2.840.6 [id number] Methodi 00:00:00 00:00:[address] 3.430.2.7 Hospit a .3.822827 l .8 2020-10-24 2020-10-24 Telephone Rodas, 1.2.840.1 [id number] [id number] Methodi 00:00:00 00:00:[address] 3.430.2.7 Hospit a .3.944633 l .8 2020-10-06 2020-10-12 Telemedici Roberts [facility], 1.2.840.1 [id number] Methodi 15:30:00 00:08:46 ne Ray 61644.1.[address] 3.430.2.7 Hospit a .3.487402 l .8 2020-09-30 2020-09-30 Telephone Yazmin, 1.2.840.8 [id number] Methodi 00:00:00 00:00:[address] 3.430.2.7 Hospit a .3.885106 l .8 2020-09-21 2020-09-21 Travel 1.2.840.1 1.2.335.079 [id number] Methodi 00:00:00 00:00:[address] 3.430.2.7 0.2.7.3.698 spita .3.432617 084.8 l .8 2020-09-06 2020-09-06 [facility] 1.2.840.1 [id number] Methodi 17:42:30 23:59:[address] 3.430.2.7 Hospit a .3.596023 l .8 2020-09-06 2020-09-06 [facility], 1.2.840.1 [id number] [id number] Methodi 16:50:00 17:41:00 Encounter Ray [address]573.1.[address] 3.430.2.7 Hospit a .3.570628 l .8 2020-09-05 2020-09-05 [facility], 1.2.840.1 [id number] Methodi 09:17:00 19:45:00 Encounter Ray [address]35.1.[address] 3.430.2.7 Hospit a .3.530448 l .8 2020-09-05 2020-09-05 Surgery [facility], 1.2.840.1 [id number] Methodi 11:30:00 13:15:[address] 3.430.2.7 Hospit a .3.956183 l .8 2020-09-05 2020-09-05 Anesthesia [facility], 1.2.840.1 [id number] Methodi 11:27:00 12:20:00 Event Kirit 36816.1.1 243 s t V. 3.430.2.7 Hospit a .3.794535 l .8 2020-09-05 2020-09-05 Travel 1.2.840.1 1.2.374.893 [id number] Methodi 00:00:00 00:00:[address] 3.430.2.7 0.2.7.3.698 Ho spita .3.249818 084.8 l .8 2020-09-04 2020-09-04 Telephone [place], 1.2.840.1 [id number] Methodi 00:00:00 00:00:00 Sarai Lieberman 68704.1.1 762 s t 3.430.2.7 Hospit a .3.475452 l .8 2020-09-02 2020-09-02 Telephone [place], 1.2.840.6 [id number] Methodi 00:00:00 00:00:00 Sarai Lieberman 53984.1.1 344 s t 3.430.2.7 Hospit a .3.820958 l .8 2020-08-29 2020-08-30 [id number] [facility] 10:20:00 14:10:00 Outpatient [facility] 00 l [facility] 2020-08-29 2020-08-30 Outpatient HEMATPOUR, [facility] CAR 7500 [facility] 05:20:00 09:10:00 BEVERLY Results Test Description Test Time Test Comments Results Result Comments Source Novel Coronavirus 2018 Inhouse 2021-08-03 18:08:00 Test Item Value Reference Range Interpretation Comme nts Novel Coronavirus 2018 Negative Negative Posit bruno results are indicative of the Inhouse (test code = presenc e [id number]-[id number]-8 RNA, clinical COVNONPUI) correlation wit h patient [...] qualitative detection of nucleic acid s from ysyRUNY-KoA-6 virus and diagn osis of SARS-CoV-2 virusinfection. It is an Emergency Use Authorization ( EUA) testauthorized by the U.S. FDA. BASIC METABOLIC [id number] 09:37:00 Test Item Value Reference Range Interpretation [...] 9.0 mg/dL 8.0-10.5 N CA) CBC W/AUTO [id number] 09:32:00 Test Item Value Reference Range Interpretation [...] REQUIRED (test code NO = MDIFF) PROTHROMBIN [id number] 09:32:00 Test Item Value Reference Range Interpretation [...] o prevent recurre nt infarct). 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 [facility] - XR CHEST 1 [id number] 00:00:00 [facility] : 1955 Sex: F FAX: Lele Olivera DO [phone] [place]: St: ADM FAX: Jean Paul Scales MD [phone] FAX: Bahman Chopra [phone] Name: LIO WATTS [facility] : 1955 Age/S: 66/F [address] [place], [place] [address]vd Unit #: [id number] Loc: [place] [address] Phys: Bahman 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 BASIC METABOLIC [id number] 11:37:00 Test Item Value Reference Range Interpretation [...] code = 9.0 mg/dL 8.0-10.5 N CA) [id number] 11:37:00 Test Item Value Reference Range Interpretation Comments PREALBUMIN (test code = PREALB) 24.3 mg/dL 16.0-40.0 N PROTHROMBIN [id number] 11:03:00 Test Item Value Reference Range Interpretation [...] o prevent recurre nt infarct). CBC W/AUTO [id number] 10:59:00 Test Item Value Reference Range Interpretation [...] 0.0-0.1 N NRBC#) - XR CHEST 2 [id number] 00:00:00 [facility] 1955 Sex: F FAX: Lele Olivera DO [phone] [place]: St: PRE FAX: Jean Paul Scales MD [phone] Name: LIO WATTS [facility] : 1955 Age/S: 66/F [address] [place] [address] Unit #: [id number] Loc: [place] [address] [facility]: [id number] Dis Date: Status: PRE [facility] PHONE #: [phone] Exam Date: 06/16/2021 1120 FAX #: [phone] Reason: PREOP EXAMS: CPT CODE: [id number] XR CHEST 2 V 01376 PROCEDURE INFORMATION: Exam: XR Chest Exam date [...] Technologist: Danielle Nix RT(R) Trnscrd Date/Time/By: 06/16/2021 (2289) : By: [email or web address] Orig Print D/T: S: 06/16/2021 (1350) PAGE 1 Signed ReportGastrointestinal [id number] 04:35:05 Test Item Value Reference Interpretation Comments [...] Rotavirus PCR (test Not Detected code = 1555604) Salmonella PCR (test Not Detected code = [...] PCR Not Detected (test code = 7124) [facility] tmpqtfg5757-72-28 19:30:47 Test Item Value Reference Range Interpretation Comments Case number (test [id number] code = 7402180) Surgical pathology See link below for PDF report (test code = Lab Report 2255) Result status (test This is Supplemental code = 2561894) Report for [id number] [facility]2021-04-09 16:31:00 Test Item Value Reference Range Interpretation Comments POC Activated Clotting Time (test code 153 s = POC Activated Clotting Time) [place] 370921-04-09 16:31:00 Test Item Value Reference Range Interpretation Comments POC Activated Clotting Time (test code 153 s = POC Activated Clotting Time) [place] 370921-04-09 16:31:00 Test Item Value Reference Range Interpretation Comments POC Activated Clotting Time (test code 153 s = POC Activated Clotting Time) [place] 370921-04-09 16:31:00 Test Item Value Reference Range Interpretation Comments POC Activated Clotting Time (test code 153 s = POC Activated Clotting Time) [facility]HotcjqdTOXMQWRHXM8220-54-17 16:31:00 Test Item Value Reference Range Interpretation Comments POC Activated Clotting Time (test code 153 s = POC Activated Clotting Time) [facility] HospitalSbkfzndZCTTGKBBWB4588-72-92 16:31:00 Test Item Value Reference Range Interpretation Comments POC Activated Clotting Time (test code 153 s = POC Activated Clotting Time) [facility] HospitalSqpuxnyLXBTEMCBHQ6891-02-90 16:31:00 Test Item Value Reference Range Interpretation Comments POC Activated Clotting Time (test code 153 s = POC Activated Clotting Time) [place] 370921-04-09 14:37:00 Test Item Value Reference Range Interpretation Comments POC Activated Clotting Time (test code 454 s = POC Activated Clotting Time) [place] 370921-04-09 14:37:00 Test Item Value Reference Range Interpretation Comments POC Activated Clotting Time (test code 454 s = POC Activated Clotting Time) [place] 370921-04-09 14:37:00 Test Item Value Reference Range Interpretation Comments POC Activated Clotting Time (test code 454 s = POC Activated Clotting Time) [place] 370921-04-09 14:37:00 Test Item Value Reference Range Interpretation Comments POC Activated Clotting Time (test code 454 s = POC Activated Clotting Time) [place] 370921-04-09 14:37:00 Test Item Value Reference Range Interpretation Comments POC Activated Clotting Time (test code 454 s = POC Activated Clotting Time) [facility] HospitalTxdxuvaKFEDPAPTGW1966-31-82 14:37:00 Test Item Value Reference Range Interpretation Comments POC Activated Clotting Time (test code 454 s = POC Activated Clotting Time) [facility] HospitalTaspgtsJYNUUUCNED6412-37-96 14:37:00 Test Item Value Reference Range Interpretation Comments POC Activated Clotting Time (test code 454 s = POC Activated Clotting Time) [facility] HospitalTwmvdvgLYVTNCANPE0445-52-11 14:13:00 Test Item Value Reference Range Interpretation Comments POC Activated Clotting Time (test code 354 s = POC Activated Clotting Time) [facility] HospitalVqiutxgWDIMLIFIMD6644-61-28 14:13:00 Test Item Value Reference Range Interpretation Comments POC Activated Clotting Time (test code 354 s = POC Activated Clotting Time) [facility] HospitalDqlrczaPPXJGSHNDG9600-52-90 14:13:00 Test Item Value Reference Range Interpretation Comments POC Activated Clotting Time (test code 354 s = POC Activated Clotting Time) [facility] HospitalXpomofuXZMQMCLBST2045-01-42 14:13:00 Test Item Value Reference Range Interpretation Comments POC Activated Clotting Time (test code 354 s = POC Activated Clotting Time) [facility] HospitalXpmmhnpPBVMRTFORE5665-06-69 14:13:00 Test Item Value Reference Range Interpretation Comments POC Activated Clotting Time (test code 354 s = POC Activated Clotting Time) [facility] HospitalVlaoogeCXCURRALLK2033-03-53 14:13:00 Test Item Value Reference Range Interpretation Comments POC Activated Clotting Time (test code 354 s = POC Activated Clotting Time) [facility] HospitalKlcissoVKUAZTCCFC2996-93-93 14:13:00 Test Item Value Reference Range Interpretation Comments POC Activated Clotting Time (test code 354 s = POC Activated Clotting Time) [facility] NISWCTQ1488-48-52 10:37:00Negative (08/29/20 5:37 AM) [facility] OWDYT8778-22-65 10:37:51119Bggfhlnj HermannCHEM PANEL 2020-08-29 10:37:0028[facility]annCHEM WYUXP9781-78-21 10:37:001.01[facility] HermannCHEM INHSK3207-70-28 10:37:98531Oskgvvvn HermannCHEM XJKKR3737-15-08 10:37:003.8[facility] HermannCHEM STMWL6703-27-69 10:37:27118Kppnxvwi HermannCHEM NDQAX1289-01-77 10:37:0028[facility] HermannCHEM HKTTB6381-55-03 10:37:009.8 [facility]annCHEM KCYHL5794-63-32 10:37:0011.8[facility] HermannCHEM PANEL 2020-08-29 10:37:0059[facility] HermannCHEM EXGOS9801-10-55 10:37:002.9[facility] HpbbpzvXELDAERLGM5960-25-44 10:37:006.8[facility] XvwrgriSNJRTZXSZO6102-51-73 10:37:004.47[facility] KtdvtagRQVOPQDNVV0284-21-22 10:37:0010.6[facility] [place] WXEHUHDWEJ9922-76-72 10:37:0034.0[facility] WvwecrrKYVSZELZVB6218-66-99 10:37:00 76.1[facility] AmgwrttECWRSFLUDB7112-18-43 10:37:00 Test Item Value Reference Range Interpretation Comments MCH (test code = MCH) 23.8 pg 27.0-31.0 [facility] EbfaxyyKMOOWZVYFD9624-39-82 10:37:0031.3[facility] HermannHEMATOLOGY 2020-08-29 10:37:0018.2[facility] DxoazqgAPNBWZLFHP3785-09-51 10:37:60801Ollchmef OwezixjVTYHZKTRKQ5622-14-94 10:37:007.5[facility] EibcqjrSXFVVBMVGA8958-70-86 10:37:00 Test Item Value Reference Range Interpretation Comments PT (test code = PT) 12.8 s 12.0-14.7 [facility] XofhbinHSYYZFYBBO2158-47-78 10:37:00 Test Item Value Reference Range Interpretation Comments INR (test code = INR) 0.97 1 0.85-1.17 [facility] OveqbvpLIBVLXREHJ3624-02-63 10:37:00 Test Item Value Reference Range Interpretation Comments PTT (test code = PTT) 25.0 s 22.9-35.8 [facility] CdcmtlnFASUJDDNTT0032-95-06 10:37:0070.5[facility] HermannHEMATOLOGY 2020-08-29 10:37:0018.8[facility] MmslyobGBPSGVSHLX3423-81-50 10:37:009.5[facility] YhgurclTWDFNXBAVB6879-13-18 10:37:000.9[facility] WztfpfbLHKRQTIPHZ4521-61-15 10:37:000.3[facility] MyjlyywKJLMZEJIVW1750-06-14 10:37:004.8[facility] AJBQVYDIKY5971-42-69 10:37:001.3[facility] OpnaflvLXCWBHRTAB0927-95-76 10:37:000.6 [facility] VsvkjxeMHLLONZYXO5318-30-98 10:37:000.1[facility] HermannHEMATOLOGY 2020-08-29 10:37:001+ *ABN*(08/29/20 5:37 AM)[facility] CobjohaOHNQRQNAHT3184-54-12 10:37:00Not Detected (08/29/20 5:37 AM)[facility]annBLOOD BANK RESULTS 2020-08-29 10:37:00Negative (08/29/20 5:37 AM)[facility] HermannCHEM PJFKA7785-32-68 10:37:96215Dqmvpzno HermannCHEM DUAKM5780-84-01 10:37:0028[facility] HermannCHEM WDNMO7253-72-82 10:37:001.01[facility] HermannCHEM FLGSB4167-08-88 10:37:69297 [facility]annCHEM XZLCW4187-68-19 10:37:003.8[facility] HermannCHEM PANEL 2020-08-29 10:37:00853Ybhturmc HermannCHEM EXJFV3691-78-51 10:37:0028[facility] HermannCHEM ESELD5919-85-57 10:37:009.8[facility] HermannCHEM OXFNC5209-96-29 10:37:0011.8[facility] HermannCHEM DSWMW4796-81-36 10:37:0059[facility]annCHEM SFLKW1354-54-93 10:37:002.9[facility] XhzcmxwWDVQRQNIGO5096-35-99 10:37:006.8 [facility] IaluxagAGNEXJDSHR0745-93-69 10:37:004.47[facility] HermannHEMATOLOGY 2020-08-29 10:37:0010.6[facility] MchofpoXKMRKNKMCK3719-72-63 10:37:0034.0[facility] TfcxlsfSZMOMLVNEZ6654-75-73 10:37:0076.1[facility] YvvkmuyPUFCHXVTVB3891-53-17 10:37:00 Test Item Value Reference Range Interpretation Comments MCH (test code = MCH) 23.8 pg 27.0-31.0 [facility] CffqgrmAOYTCJYLDI9531-30-92 10:37:0031.3[facility] HermannHEMATOLOGY 2020-08-29 10:37:0018.2[facility] TihzkcuKOFTBRNEEX1535-24-30 10:37:11307Azznvysz MxwfospWNJHXHBKYM2356-78-98 10:37:007.5[facility] EbuctyaTSXLYFVHFZ1262-83-43 10:37:00 Test Item Value Reference Range Interpretation Comments PT (test code = PT) 12.8 s 12.0-14.7 [facility] JcyeraaFJSTHYUCAU6605-31-96 10:37:00 Test Item Value Reference Range Interpretation Comments INR (test code = INR) 0.97 1 0.85-1.17 [facility] JtlszorYJWDYQSTMD4256-69-63 10:37:00 Test Item Value Reference Range Interpretation Comments PTT (test code = PTT) 25.0 s 22.9-35.8 [facility] WvqlirzVTDLPRBGXW2083-33-53 10:37:0070.5[facility] HermannHEMATOLOGY 2020-08-29 10:37:0018.8[facility] XibhquhWOUHQBYUOK6030-19-45 10:37:009.5[facility] RahkpdnWJUDSPPDIY9255-67-81 10:37:000.9[facility] YriylmqNNNPBGIJLM1902-40-90 10:37:000.3[facility] LhahsyiFRHFOQVRBG4055-44-73 10:37:004.8[facility] WVVLYDMXVF9305-69-66 10:37:001.3[facility] PwwgepvMOCKYSDOJV7763-77-53 10:37:000.6 [facility] BexwixiQKXBHSOYAL9068-56-06 10:37:000.1[facility] HermannHEMATOLOGY 2020-08-29 10:37:001+ *ABN*(08/29/20 5:37 AM)[facility] DvtdtndDLIHXUBGWA4613-09-47 10:37:00Not Detected (08/29/20 5:37 AM)[facility] HermannBLOOD BANK RESULTS 2020-08-29 10:37:00Negative (08/29/20 5:37 AM)[facility] HermannCHEM QMIMR9714-09-80 10:37:21469Hoyyarvk HermannCHEM PZTVA4940-44-97 10:37:0028[facility] HermannCHEM TZUGU9566-72-66 10:37:001.01[facility] HermannCHEM MQDUA2936-58-37 10:37:27358 [facility] HermannCHEM OGKRW4532-90-81 10:37:003.8[facility] HermannCHEM PANEL 2020-08-29 10:37:09958Rfiwcmoc HermannCHEM KTYYL9481-09-49 10:37:0028[facility] HermannCHEM KBRLY9302-62-96 10:37:009.8[facility] HermannCHEM BSSGX5328-06-22 10:37:0011.8[facility] HermannCHEM UEPGU7395-84-34 10:37:0059[facility] HermannCHEM SVAFE2970-73-90 10:37:002.9[facility] ZzsbffyJAYIZPHUNW2901-51-00 10:37:006.8 [facility] EuzxuflNBBMAXHISL6406-12-37 10:37:004.47[facility] HermannHEMATOLOGY 2020-08-29 10:37:0010.6[facility] DmxzdenSRCFRRTMWE2524-06-60 10:37:0034.0[facility] GwblnofESIWBANNTC2059-62-25 10:37:0076.1[facility] PmwptupSDNBGCDMHH8197-43-20 10:37:00 Test Item Value Reference Range Interpretation Comments MCH (test code = MCH) 23.8 pg 27.0-31.0 [facility] XggjnetFSKYCAYYJG8485-25-94 10:37:0031.3[facility] HermannHEMATOLOGY 2020-08-29 10:37:0018.2[facility] TmruilfXLNDYEUBWV4018-23-23 10:37:15494Bvdinilo UqrbcveZDSIZFCOQF9923-51-07 10:37:007.5[facility] AcctproGWHVNRULJI8529-58-56 10:37:00 Test Item Value Reference Range Interpretation Comments PT (test code = PT) 12.8 s 12.0-14.7 [facility] SupdppzVMEDNHGLQW5266-64-73 10:37:00 Test Item Value Reference Range Interpretation Comments INR (test code = INR) 0.97 1 0.85-1.17 [facility] LcveoolLXQWRHINSA4447-83-84 10:37:00 Test Item Value Reference Range Interpretation Comments PTT (test code = PTT) 25.0 s 22.9-35.8 [facility] RghxsjpPRKZBTDODU6362-01-67 10:37:0070.5[facility] HermannHEMATOLOGY 2020-08-29 10:37:0018.8[facility] SusliwhRQQSDRBIQQ9500-64-73 10:37:009.5[facility] QoosjxyGDDUSZNQMV2896-54-97 10:37:000.9[facility] ZvrrqqfPYHNDDOIZZ3207-00-90 10:37:000.3[facility] HttnhnxSENBMYHWAD1829-75-81 10:37:004.8[facility] KBKDLHJUPZ0949-80-93 10:37:001.3[facility] VquxotoFTBDRIUUWZ4515-20-20 10:37:000.6 [facility] PdjdlziQHGYHCYBFU5622-86-86 10:37:000.1[facility] HermannHEMATOLOGY 2020-08-29 10:37:001+ *ABN*(08/29/20 5:37 AM)[facility] ZwjyrmuQYPBGQWTRK0599-65-68 10:37:00Not Detected (08/29/20 5:37 AM)[facility] HermannBLOOD BANK RESULTS 2020-08-29 10:37:00Negative (08/29/20 5:37 AM)[facility] HermannCHEM PCSTC5277-02-11 10:37:62865Ejagcqpw HermannCHEM DQKVW5102-46-41 10:37:0028[facility] HermannCHEM QIHFQ7877-70-83 10:37:001.01[facility] HermannCHEM AAVPD7069-47-45 10:37:13104 [facility] HermannCHEM DGJSV3586-30-30 10:37:003.8[facility] HermannCHEM PANEL 2020-08-29 10:37:49566Yyowxjfa HermannCHEM UMWDV4777-36-11 10:37:0028[facility] HermannCHEM EDREW4933-54-78 10:37:009.8[facility] HermannCHEM CLZXN8842-52-28 10:37:0011.8[facility] HermannCHEM QKYUG8455-77-20 10:37:0059[facility] HermannCHEM OSUEA9948-21-64 10:37:002.9[facility] JuwmzbqTINMTFIGQM0398-63-91 10:37:006.8 [facility] UjedvriNRXCVRCYVI1145-10-94 10:37:004.47[facility] HermannHEMATOLOGY 2020-08-29 10:37:0010.6[facility] GlgvdkdQSSHWBEWGM0089-81-41 10:37:0034.0[facility] JjgxrnuQRKFDJIQPF2874-44-30 10:37:0076.1[facility] EccpiwxSXPTUUJPER2204-70-93 10:37:00 Test Item Value Reference Range Interpretation Comments MCH (test code = MCH) 23.8 pg 27.0-31.0 [facility] IiygoehQVBTTSMEEI1473-18-60 10:37:0031.3[facility] HermannHEMATOLOGY 2020-08-29 10:37:0018.2[facility] CweyozmJWUTCYHCTQ5847-32-18 10:37:20278Cwbkopjc MoaxuywXKVTGGAVOM3581-36-65 10:37:007.5[facility] UowxcriENFHWLGYDI5780-19-90 10:37:00 Test Item Value Reference Range Interpretation Comments PT (test code = PT) 12.8 s 12.0-14.7 [facility] FmuwvhlDYHZTPOWRJ1507-81-68 10:37:00 Test Item Value Reference Range Interpretation Comments INR (test code = INR) 0.97 1 0.85-1.17 [facility] NwwfdfxOQHYIQYZWL6724-25-74 10:37:00 Test Item Value Reference Range Interpretation Comments PTT (test code = PTT) 25.0 s 22.9-35.8 [facility] WlypbvwRAVLBYFCWU0468-52-45 10:37:0070.5[facility] HermannHEMATOLOGY 2020-08-29 10:37:0018.8[facility] GpbioreQQEJGGOSJO3688-56-82 10:37:009.5[facility] DrlaiwmUKOVHDAFEQ1603-88-60 10:37:000.9[facility] LvaejoyBMWPQMTVLG6094-16-10 10:37:000.3[facility] JxbozoxBQQDQGUXCP7101-42-06 10:37:004.8[facility] [place] XMCODVRVTO5971-26-07 10:37:001.3[facility] WxsaulkSNKOFYBVOD7273-64-44 10:37:000.6 [facility] SmtwfmjGNVHNLNJDR3733-24-08 10:37:000.1[facility] HermannHEMATOLOGY 2020-08-29 10:37:001+ *ABN*(08/29/20 5:37 AM)[facility] BlqajuhHCCCAMGEVG2878-58-26 10:37:00Not Detected (08/29/20 5:37 AM)[facility] HermannBLOOD BANK RESULTS 2020-08-29 10:37:00Negative (08/29/20 5:37 AM)[facility] HermannCHEM JWYOC6543-76-18 10:37:71839Yknbbnmv HermannCHEM GHQZG1261-46-20 10:37:0028[facility] HermannCHEM LRKNW4820-94-16 10:37:001.01[facility] HermannCHEM FJWOW7743-14-36 10:37:95756 [facility] HermannCHEM NFNJM0120-98-70 10:37:003.8[facility] HermannCHEM PANEL 2020-08-29 10:37:42400Hlrhtgin HermannCHEM KWYKY6552-60-26 10:37:0028[facility] HermannCHEM ESGWF4984-85-78 10:37:009.8[facility] HermannCHEM YMHAN7712-48-37 10:37:0011.8[facility] HermannCHEM YWJYU9976-91-95 10:37:0059[facility] HermannCHEM EOIMN0444-66-84 10:37:002.9[facility] SuvrukpURJSDTEKLO4354-98-32 10:37:006.8 [facility] IlyfvwiEXFLEFCBRY2974-95-82 10:37:004.47[facility] HermannHEMATOLOGY 2020-08-29 10:37:0010.6[facility] UhbujhnWRLETPYCZQ3215-91-03 10:37:0034.0[facility] VtearfzSTYXPNDCBE9226-68-30 10:37:0076.1[facility] EcgolsbQZIBDFJUIG7179-01-31 10:37:00 Test Item Value Reference Range Interpretation Comments MCH (test code = MCH) 23.8 pg 27.0-31.0 [facility] NukmvyaCJILWVXWFL7284-61-90 10:37:0031.3[facility] HermannHEMATOLOGY 2020-08-29 10:37:0018.2[facility] NjvrmzeWPZPMRKRZV1704-05-68 10:37:75063Kmeopxtp NardlmrFVKRZMAXJN0888-94-54 10:37:007.5[facility] VumxqicYAPNGDIEBY1897-71-31 10:37:00 Test Item Value Reference Range Interpretation Comments PT (test code = PT) 12.8 s 12.0-14.7 [facility] KhfyhmzUTDOZECIMO2685-18-54 10:37:00 Test Item Value Reference Range Interpretation Comments INR (test code = INR) 0.97 1 0.85-1.17 [facility] QptdfdbBVWUZMIZUU1012-50-95 10:37:00 Test Item Value Reference Range Interpretation Comments PTT (test code = PTT) 25.0 s 22.9-35.8 [facility] MuvcgnhBGNLFDEATF4917-82-93 10:37:0070.5[facility] HermannHEMATOLOGY 2020-08-29 10:37:0018.8[facility] NyxxycmSXIESMSCBC7996-07-49 10:37:009.5[facility] TyjocdnEWIPWMZZQS5652-30-69 10:37:000.9[facility] NuhyxzhVXRMDHABEY3382-58-52 10:37:000.3[facility] NrlengmBYBUDXCZGW0218-42-66 10:37:004.8[facility] JGHILSVSEO4523-39-48 10:37:001.3[facility] RdtvmnaTTSCCSOGJI3795-41-75 10:37:000.6 [facility] VjgsuveMFMRFEJMJR0875-88-92 10:37:000.1[facility] HermannHEMATOLOGY 2020-08-29 10:37:001+ *ABN*(08/29/20 5:37 AM)[facility] HbypdrfCUVIJPCDXE9547-36-99 10:37:00Not Detected (08/29/20 5:37 AM)[facility]annBLOOD BANK RESULTS 2020-08-29 10:37:00Negative (08/29/20 5:37 AM)[facility] HermannCHEM DNYYU9047-39-32 10:37:16281Vrxuxpwq HermannCHEM VJFKL1530-13-82 10:37:0028[facility] HermannCHEM FKVWR1511-88-38 10:37:001.01[facility] HermannCHEM WWHXP0998-14-39 10:37:03540 [facility] HermannCHEM CEUFX3887-79-06 10:37:003.8[facility] HermannCHEM PANEL 2020-08-29 10:37:59165Fyltfefy HermannCHEM NXYTC6414-17-50 10:37:0028[facility] HermannCHEM DLFEA3931-92-01 10:37:009.8[facility] HermannCHEM MZKYS0003-89-28 10:37:0011.8[facility] HermannCHEM KDKKN5654-78-78 10:37:0059[facility] HermannCHEM FPHHN5916-78-05 10:37:002.9[facility] KkpnslgURZQOCYSLD3192-13-29 10:37:006.8 [facility] NwocrqaABACVKFOYD6561-23-16 10:37:004.47[facility] HermannHEMATOLOGY 2020-08-29 10:37:0010.6[facility] EefnyylTBPQHJQSKW8454-91-70 10:37:0034.0[facility] HtjncdmZJZDFBFNFF0007-47-64 10:37:0076.1[facility] BvejowjRUHFBRZZDA7402-42-91 10:37:00 Test Item Value Reference Range Interpretation Comments MCH (test code = MCH) 23.8 pg 27.0-31.0 [facility] HiykyqfTGKTBGSRFP6636-35-72 10:37:0031.3[facility] HermannHEMATOLOGY 2020-08-29 10:37:0018.2[facility] NinkomzXLSNESLFKT1172-06-44 10:37:79534Aidgyqeq FxwkpixLIAYJTDLHJ0431-47-84 10:37:007.5[facility] DmomxjsIHYJYAQTMW2660-75-12 10:37:00 Test Item Value Reference Range Interpretation Comments PT (test code = PT) 12.8 s 12.0-14.7 [facility] XtytndyRGMIOVFVVX6809-10-20 10:37:00 Test Item Value Reference Range Interpretation Comments INR (test code = INR) 0.97 1 0.85-1.17 [facility] HhwfherXCAALFGIKY8301-15-35 10:37:00 Test Item Value Reference Range Interpretation Comments PTT (test code = PTT) 25.0 s 22.9-35.8 [facility] VyhtittNJVRTQPHZD7665-69-18 10:37:0070.5[facility] HermannHEMATOLOGY 2020-08-29 10:37:0018.8[facility] QsmrtvkRJENVTNTZZ1461-42-60 10:37:009.5[facility] WuwtyogNZTNSXTBML7220-70-27 10:37:000.9[facility] FhakvjkTCVIUKFNSK2200-09-75 10:37:000.3[facility] TrzvhntFTVDIAVCUV5953-94-23 10:37:004.8[facility] [place] MMSCYNWFVG8820-12-03 10:37:001.3[facility] DjmkjshMAJQKRLSCJ3839-23-22 10:37:000.6 [facility] XpejndhZDULXXNVZM7938-79-36 10:37:000.1[facility] HermannHEMATOLOGY 2020-08-29 10:37:001+ *ABN*(08/29/20 5:37 AM)[facility] HrpvrlqSWEFNTTGYM5964-57-08 10:37:00Not Detected (08/29/20 5:37 AM)[facility]annBLOOD BANK RESULTS 2020-08-29 10:37:00Negative (08/29/20 5:37 AM)[facility] HermannCHEM FKLXF4815-40-40 10:37:39220Mlddyoqh HermannCHEM UDDCS0987-04-77 10:37:0028[facility] HermannCHEM SHIVS3817-61-83 10:37:001.01[facility] HermannCHEM CFCZW9022-75-54 10:37:11036 [facility]annCHEM RNOUJ9631-95-15 10:37:003.8[facility] HermannCHEM PANEL 2020-08-29 10:37:82736Rtcjpeju HermannCHEM NTHYR9364-98-14 10:37:0028[facility] HermannCHEM MUDFK0198-74-46 10:37:009.8[facility] HermannCHEM CKGNG9165-92-90 10:37:0011.8[facility] HermannCHEM GZNWZ3980-03-28 10:37:0059[facility] HermannCHEM NXONT3979-99-26 10:37:002.9[facility] AvntoowHZKXJFOHOS6795-01-49 10:37:006.8 [facility] GzjuszhPYHXOFTVJR2406-87-64 10:37:004.47[facility]annHEMATOLOGY 2020-08-29 10:37:0010.6[facility] DalagvkUZEGAOMJQP5408-75-37 10:37:0034.0[facility] UxezbfjLXAIEQXDMQ6701-33-46 10:37:0076.1[facility] LmxcsdqCPDQEJVLRG5769-10-96 10:37:00 Test Item Value Reference Range Interpretation Comments MCH (test code = MCH) 23.8 pg 27.0-31.0 [facility] VjhtlyeNCOYMVKYZM8066-43-40 10:37:0031.3[facility] HermannHEMATOLOGY 2020-08-29 10:37:0018.2[facility] XmizjgpTHSULQSFXU7426-40-31 10:37:73326Qcandedk PtlavmvEGWQTRLBWU8387-34-77 10:37:007.5[facility] DynsoouIIHAGSROEN6716-88-41 10:37:00 Test Item Value Reference Range Interpretation Comments PT (test code = PT) 12.8 s 12.0-14.7 [facility] TexasIxmpungWQHFNVRTWZ2753-38-51 10:37:00 Test Item Value Reference Range Interpretation Comments INR (test code = INR) 0.97 1 0.85-1.17 [facility] TexasFccopsxVMNVIDQTDB2727-03-84 10:37:00 Test Item Value Reference Range Interpretation Comments PTT (test code = PTT) 25.0 s 22.9-35.8 [facility] GgbugywJQTFKXVQTE5472-95-43 10:37:0070.5[facility]annHEMATOLOGY 2020-08-29 10:37:0018.8[facility] WfewkgbNHVSDQVPCY0862-09-18 10:37:009.5[facility] UadafoyFVHKHZXOPV9445-13-69 10:37:000.9[facility] YpcsxbxECGKVONKQB6005-68-05 10:37:000.3[facility] NyschyxUZVEREWRPE1018-35-15 10:37:004.8[facility] [place] RNKCOWMWIW0195-90-66 10:37:001.3[facility] YfwszyiKZRWBKMJSM4862-92-59 10:37:000.6 [facility] EiafvdgJAGSFQBARZ3845-98-21 10:37:000.1[facility] 2020-08-29 10:37:001+ *ABN*(08/29/20 5:37 AM)[facility] FcedxxjIJDPBOVBUA8404-88-22 10:37:00Not Detected (08/29/20 5:37 AM)[facility] TexasarielBLOWING ROCK HOSPITALDIA, GC, TV,PCR, IN [id number] 15:38:00 Test Item Value Reference Range Interpretation Comments FT (test code = CHTR) Not detected (qualifier Not Detected N value) FT (test code = Not detected (qualifier Not Detected N NGONO) value) FT (test code = TRVG) Not detected (qualifier Not Detected N value) URINALYSIS WITH [id number] 10:57:00 Test Item Value Reference Range Interpretation Comments Color (test code = UCOLR) Dk. Yellow Clarity (test code = UCLAR) Hazy Glucose (test code = UGLUC) NEGATIVE NEGATIVE N Bilirubin (test code = UBILI) NEGATIVE NEGATIVE N Ketones (test code = UKET) NEGATIVE NEGATIVE N Specific [place] (test code = 1.025 1.005-1.030 A USPGR) [...]
[2021-09-18 02:16] LABS: Barbiturates NEGATIVE (NEGATIVE); Benzodiazepines NEGATIVE (NEGATIVE); Cocaine NEGATIVE (NEGATIVE); METHAMPHETAM NEGATIVE (NEGATIVE); Methadone NEGATIVE (NEGATIVE); Opiates NEGATIVE (NEGATIVE); Phencyclidine NEGATIVE (NEGATIVE); THC Cannibis NEGATIVE (NEGATIVE)
[2021-09-18 02:50] LABS: Absolute Lymphocytes (CBC) 1.2 K/uL (0.7-4.9); Hematocrit 33.4 % (36.0-45.0); Lymphocytes % 20.1 % (15.3-44.8); MPV 7.4 fL (7.6-11.3); RBC Red Blood Cell Count 4.49 M/uL (3.86-4.86)
[2021-09-18 02:52] LABS: Protime INR 0.97
[2021-09-18 03:14] LABS: ALT/SGPT 31 U/L (12-78); AST/SGOT 41 U/L (15-37); Albumin 3.3 g/dL (3.4-5.0); Alkaline Phosphatase 96 U/L (45-117); BUN Blood Urea Nitrogen 19 mg/dL (7-18); Bicarbonate 34 mmol/L (21-32); Bilirubin Total 0.3 mg/dL (0.2-1.0); Glucose Level 109 mg/dL (74-106); Protein, Total 7.2 g/dL (6.4-8.2); Sodium Level 144 mmol/L (136-145)
[2021-09-18 03:15] LABS: Bilirubin Direct < 0.1 mg/dL (0-0.2); Potassium 2.9 mmol/L (3.5-5.1)
[2021-09-18] MEDS ORDERED: POTASSIUM 25 MEQ EFFERV TAB ONE (03:52)
--- NOTE | 2021-09-18 03:58 | ER ---
Nurse's Notes [facility] Name: Fawn Fleming Age: 66 yrs Sex: Female : 1955 Arrival Date: 09/18/2021 Time: 00:37 Bed 4 Private MD: Diagnosis: Dizziness and giddiness;Adverse effect of other drugs, medicaments and biological substances;Hypokalemia Presentation: 09/18 00:37 Chief complaint: EMS states: Patient took Remeron 15 mg for the first time at 10 PM and ke1 started having blurred vision, dry mouth and dizziness. 00:37 Method Of Arrival: EMS: [facility] 00:54 Coronavirus screen: Vaccine status: Patient reports receiving the 2nd dose of the covid ke1 vaccine. Ebola Screen: No symptoms or risks identified at this time. Initial Sepsis Screen: Does the patient meet any 2 criteria? No. Patient's initial sepsis screen is negative. Does the patient have a suspected source of infection? No. Patient's initial sepsis screen is negative. Risk Assessment: Do you want to hurt yourself or someone else? Patient reports no desire to harm self or others. Onset of symptoms was September 17, 2021 at 22:00. 00:54 Acuity: BLAYNE 3 ke1 Triage Assessment: 00:59 General: Appears in no apparent distress. Behavior is appropriate for age. Pain: ke1 Complains of pain in headache. Respiratory: Respiratory effort is even, unlabored, Respiratory pattern is regular, symmetrical. Historical: - Allergies: 00:54 No Known Allergies; ke1 - PMHx: 01:31 Hypertensive disorder; HIV positive; Depressive disorder; ke1 - PSHx: 01:31 Appendectomy; Cholecystectomy; ke1 - Immunization history:: Client reports receiving the 2nd dose of the Covid vaccine. - Social history:: Smoking status: . Screenin:33 Abuse screen: Denies threats or abuse. Nutritional screening: No deficits noted. ke1 Tuberculosis screening: No symptoms or risk factors identified. Fall Risk No fall in past 12 months (0 pts). Secondary diagnosis (15 points) dizziness. No IV (0 pts). Ambulatory Aid- None/Bed Rest/Nurse Assist (0 pts). Gait- Normal/Bed Rest/Wheelchair (0 pts) Mental Status- Oriented to own ability (0 pts). Total Hauser Fall Scale indicates. Assessment: 01:25 Reassessment: Patient appears in no apparent distress at this time. POISON CONTROL ke1 called spoke to [facility], dizziness and dry mouth are common side effects of remeronn. For high BP and blurred vision, put patient in a calm environment to lower BP and as BP decreases, blurred vision should resolved. . 03:30 Reassessment: No changes from previously documented assessment. Patient and/or family vc1 updated on plan of care and expected duration. Pain level reassessed. Patient is alert, oriented x 3, equal unlabored respirations, skin warm/dry/pink. Pt states she is ready to go home. Vital Signs: 00:54 BP 194 / 156; Pulse 64; Resp 18; Temp 98.6(O); Pulse Ox 100% ; Weight 91.63 kg; Height ke1 5 ft. 4 in. (162.56 cm); Pain 3/10; 01:31 BP 153 / 93; Pulse 63; Resp 18; Pulse Ox 99% on R/A; ke1 04:02 BP 132 / 93; Pulse 63; Resp 18; Pulse Ox 100% on R/A; ke1 00:54 Body Mass Index 34.67 (91.63 kg, 162.56 cm) ke1 ED Course: 00:37 Patient arrived in ED. tw5 00:37 Eli Bran, ASHLEY is Primary Nurse. ke1 00:52 Prem Garcia MD is Attending Physician. 7 00:58 Triage completed. ke1 01:30 Arm band placed on right wrist. ke1 01:33 Bed in low position. Call light in reach. Side rails up X 1. Side rails up X2. ke1 03:15 Notified ED physician of a critical lab result(s). 2.9 potassium. tw5 04:04 No provider procedures requiring assistance completed. ke1 04:04 Patient did not have IV access during this emergency room visit. ke1 Administered Medications: 03:58 Drug: Potassium Effervescent Tablet 50 mEq Route: PO; vc1 04:04 Follow up: Response: No adverse reaction ke1 Outcome: 03:57 Discharge ordered by . 7 04:04 Discharged to home via wheelchair. ke1 04:04 Condition: good 04:04 Discharge instructions given to patient. 04:05 Patient left the ED. ke1 Signatures: Prem Garcia MD MD mh7 Dorita Dominguez 5 Deyanira Medina RN RN vc1 Eli Bran RN RN ke1 Corrections: (The following items were deleted from the chart) 01:25 00:37 Chief complaint: EMS states: Patient took Remeron 15 mg for the first time at 10 ke1 PM and started having blurred vision, dry mouth ke1 04:04 01:20 Arm band placed on right wrist. ke1 ke1
--- NOTE | 2021-09-18 03:58 | EDPHYS ---
Physician Documentation [facility] Name: Fawn Fleming Age: 66 yrs Sex: Female : 1955 Arrival Date: 09/18/2021 Time: 00:37 Bed 4 Private MD: ED Physician Prem Garcia HPI: 09/18 01:15 This 66 yrs old Female presents to ER via EMS with complaints of Adverse Medication mh7 Reaction. 01:15 The patient presents to the emergency department Adverse reaction to medication. mh7 Context: Method: Took a dose of her newly prescribed Remeron. Associated signs and symptoms: Pertinent positives: dizziness, visual hallucinations. Severity of symptoms: At their worst the symptoms were moderate today, in the emergency department the symptoms have improved moderately. Historical: - Allergies: 00:54 No Known Allergies; ke1 - PMHx: 01:31 Hypertensive disorder; HIV positive; Depressive disorder; ke1 - PSHx: 01:31 Appendectomy; Cholecystectomy; ke1 - Immunization history:: Client reports receiving the 2nd dose of the Covid vaccine. - Social history:: Smoking status: . ROS: 01:15 Constitutional: Negative for fever, chills, and weight loss, Eyes: Negative for injury, mh7 pain, redness, and discharge, ENT: Negative for injury, pain, and discharge, Neck: Negative for injury, pain, and swelling, Cardiovascular: Negative for chest pain, palpitations, and edema, Respiratory: Negative for shortness of breath, cough, wheezing, and pleuritic chest pain, Abdomen/GI: Negative for abdominal pain, nausea, vomiting, diarrhea, and constipation, Back: Negative for injury and pain, : Negative for injury, bleeding, discharge, and swelling, MS/Extremity: Negative for injury and deformity, Skin: Negative for injury, rash, and discoloration, Neuro: Negative for headache, weakness, numbness, tingling, and seizure. 01:15 Allergy/Immunology: Negative for hives, rash, and allergies, Endocrine: Negative for neck swelling, polydipsia, polyuria, polyphagia, and marked weight changes, Hematologic/Lymphatic: Negative for swollen nodes, abnormal bleeding, and unusual bruising. 01:15 Psych: Negative for anxiety, depression, drug dependence, alcohol dependence, auditory hallucinations, homicidal ideation, insomnia, suicide gesture, suicidal ideation. Exam: 01:15 Constitutional: This is a well developed, well nourished patient who is awake, alert, mh7 and in no acute distress. Head/Face: Normocephalic, atraumatic. Eyes: Pupils equal round and reactive to light, extra-ocular motions intact. Lids and lashes normal. Conjunctiva and sclera are non-icteric and not injected. Cornea within normal limits. Periorbital areas with no swelling, redness, or edema. Neck: Trachea midline, no thyromegaly or masses palpated, and no cervical lymphadenopathy. Supple, full range of motion without nuchal rigidity, or vertebral point tenderness. No Meningismus. Chest/axilla: Normal chest wall appearance and motion. Nontender with no deformity. No lesions are appreciated. Cardiovascular: Regular rate and rhythm with a normal S1 and S2. No gallops, murmurs, or rubs. Normal PMI, no JVD. No pulse deficits. Respiratory: Lungs have equal breath sounds bilaterally, clear to auscultation and percussion. No rales, rhonchi or wheezes noted. No increased work of breathing, no retractions or nasal flaring. Abdomen/GI: Soft, non-tender, with normal bowel sounds. No distension or tympany. No guarding or rebound. No evidence of tenderness throughout. Back: No spinal tenderness. No costovertebral tenderness. Full range of motion. Skin: Warm, dry with normal turgor. Normal color with no rashes, no lesions, and no evidence of cellulitis. MS/ Extremity: Pulses equal, no cyanosis. Neurovascular intact. Full, normal range of motion. Psych: Awake, alert, with orientation to person, place and time. Behavior, mood, and affect are within normal limits. 01:15 Neuro: Orientation: is normal, Mentation: is normal, Memory: is normal, Cranial nerves: grossly normal, Cerebellar function: is grossly normal, Motor: is normal, Sensation: is normal, Gait: not tested. seizure activity, is not displayed by the patient, Abnormal movements: there are no abnormal movements. Vital Signs: 00:54 BP 194 / 156; Pulse 64; Resp 18; Temp 98.6(O); Pulse Ox 100% ; Weight 91.63 kg; Height ke1 5 ft. 4 in. (162.56 cm); Pain 3/10; 01:31 BP 153 / 93; Pulse 63; Resp 18; Pulse Ox 99% on R/A; ke1 04:02 BP 132 / 93; Pulse 63; Resp 18; Pulse Ox 100% on R/A; ke1 00:54 Body Mass Index 34.67 (91.63 kg, 162.56 cm) ke1 MDM: 03:54 Differential diagnosis: polypharmacy, over medication, hypoglycemia. Data reviewed: [facility] vital signs, nurses notes, lab test result(s), CBC, electrolytes. 03:54 Data interpreted: Pulse oximetry: on room air is 99 %. Interpretation: normal. [facility] Counseling: I had a detailed discussion with the patient and/or guardian regarding: the historical points, exam findings, and any diagnostic results supporting the discharge/admit diagnosis, the presence of at least one elevated blood pressure reading (>120/80) during this emergency department visit, lab results, radiology results, the need for outpatient follow up, to return to the emergency department if symptoms worsen or persist or if there are any questions or concerns that arise at home. Response to treatment: the patient's symptoms have resolved after treatment, the patient's blood pressure is in an acceptable range, mental status has returned to baseline, the patient no longer shows bradycardia, the patient is not short of breath, the patient is not tachycardic, the patient's pain is gone, the patient's temperature has normalized. 03:57 Patient medically screened. [facility] 09/18 01:13 Order name: Acetaminophen; Complete Time: 03: [facility] 09/18 01:13 Order name: Basic Metabolic Panel; Complete Time: 03: [facility] 09/18 01:13 Order name: CBC with Diff; Complete Time: : 09/18 01:13 Order name: ETOH Level; Complete Time: : [facility] 09/18 01:13 Order name: Hepatic Function; Complete Time: : [facility] 09/18 01:13 Order name: PT-INR; Complete Time: : 09/18 01:13 Order name: Ptt, Activated; Complete Time: 03: [facility] 09/18 01:13 Order name: Salicylate; Complete Time: 03: [facility] 09/18 01:13 Order name: Urine Drug Screen; Complete Time: 03:26 [facility] 09/18 01:13 Order name: EKG; Complete Time: 01:14 7 09/18 01:13 Order name: EKG - Nurse/Tech; Complete Time: 03:47 7 09/18 01:13 Order name: IV Saline Lock; Complete Time: 03:47 7 09/18 01:13 Order name: Labs collected and sent; Complete Time: 03:47 7 09/18 01:13 Order name: Suicide Screening ([facility]); Complete Time: 03:47 7 09/18 01:13 Order name: Urine Dipstick-Ancillary (obtain specimen); Complete Time: 03:47 [facility] Administered Medications: 03:58 Drug: Potassium Effervescent Tablet 50 mEq Route: PO; vc1 04:04 Follow up: Response: No adverse reaction ke1 Disposition Summary: 09/18/21 03:57 Discharge Ordered Location: Home [facility] Problem: new [facility] Symptoms: have improved [facility] Condition: Stable [facility] Diagnosis - Dizziness and giddiness [facility] - Adverse effect of other drugs, medicaments and biological substances [facility] - Hypokalemia [facility] Followup: [facility] - With: Private Physician - When: 1 - 2 days - Reason: Worsening of condition, Recheck today's complaints, Continuance of care, Re-evaluation by your physician Discharge Instructions: - Discharge Summary Sheet [facility] - Hypokalemia [facility] - Dizziness, [id number] [facility] Forms: - Medication Reconciliation Form [facility] - Thank You Letter [facility] - Antibiotic Education [facility] - Prescription Opioid Use [facility] Signatures: Dispatcher [employer] Prem [place] MD MD [facility] Deyanira Medina RN RN vc1 Eli Bran RN RN ke1
[2021-09-18 04:32] VITALS: TEMP 98.6
[2021-09-18 04:37] VITALS: BP 132/93; O2SAT 100
--- NOTE | 2021-09-18 07:43 | EKG ---
Test Date: 2021-09-18 Test Time: 02:04:20 Student Success Coach: GONZALO MEASUREMENT RESULTS: Intervals: Rate: 62 MI: 146 QRSD: 82 QT: 486 QTc: 493 [place]: P: 45 MI: 146 QRS: 31 T: 80 INTERPRETIVE STATEMENTS: Normal sinus rhythm Nonspecific ST and T wave abnormality Prolonged QT Abnormal ECG Compared to ECG 09/18/2021 02:03:49 Possible ischemia no longer present ST (T wave) deviation still present Electronically Signed On 09-18-21 07:42:07 CDT by Per Crane
--- NOTE | 2021-09-18 07:43 | EKG ---
Test Date: 2021-09-18 Test Time: 02:03:49 Casino Controller: GONZALO MEASUREMENT RESULTS: Intervals: Rate: 64 SD: 136 QRSD: 86 QT: 458 QTc: 472 [place]: P: 18 SD: 136 QRS: 37 T: 48 INTERPRETIVE STATEMENTS: Undetermined rhythm ST & T wave abnormality, consider inferior ischemia Prolonged QT Abnormal ECG Compared to ECG 09/11/2021 05:51:17 Prolonged QT interval now present Sinus bradycardia no longer present ST (T wave) deviation still present Possible ischemia still present Electronically Signed On 09-18-21 07:42:07 CDT by Per Crane
== END 2021-09-18 04:05 | disposition home or self-care (01) ==
LOC: ER 00:20
DX: E87.6 Hypokalemia (principal); T43.025A Adverse effect of tetracyclic antidepressants, initial encounter; I10 Essential (primary) hypertension; F32.A Depression, unspecified; Z21 Asymptomatic human immunodeficiency virus [HIV] infection status
CPT/HCPCS: 36415; 80048; 80076; 80307; 80320; 80329; 85025; 85610; 85730; 93005; 99283

== ENCOUNTER 2021-09-20 18:54 | Emergency (ER) | payer OTHER ==
--- OUTSIDE RECORDS SUMMARY | 2021-09-20 19:03 | XMS REPORT | Continuity of Care Document ---
:1955 Author Organization [facility] t Address [address] [place] [address] Care Team Providers Name Role Phone Francisco Rahman Primary Care Physician Ashely Attending Clinician Unavailable JENNY Attending Clinician Unavailable SELF Attending Clinician Unavailable Ronald DHILLON Attending Clinician [facility] Attending Clinician Unavailable Ap JENKINS Attending Clinician Doctor Unassigned, Name Attending Clinician Unavailable Yazmin JENKINS Attending Clinician Luisana Maharaj NP Attending Clinician Prabhu SANCHEZ Attending Clinician Unavailable Devin SILVER LAP MACHINE TENDER, R Attending Clinician Clark SANCHEZ Attending Clinician Unavailable Diana SANCHEZ Attending Clinician Unavailable Remigio JENKINS V. Attending Clinician HEMATPOUR Attending Clinician Unavailable DO SYL Attending Clinician Unavailable Kristen Rahman Admitting Clinician Unavailable Ashely Admitting Clinician Unavailable YAZMIN Admitting Clinician Unavailable DO SYL Admitting Clinician Unavailable Payers Payer Name Policy Type Policy Number Effective Date Expiration Date S gabino [facility] COMMUNITY PLAN [id number] 2012 [employer] 00:00:00 [employer] [id number] 2019 BEHAVIORAL 00:00:00 SOLUTIONS [place]ICAID [place] [id number] 2020 00:00:00 Problems Condition Condition Condition Status Onset Resolution Last Treating Co mments Source Name Details Category Date Date Treatment Clinician Date Gastropare Gastropare Disease Active Overview : Methodi sis sis 4-[address] 00:00: [facility] 00 note l might be different from the original. Added automatic ally from request for surgery [id number] Dysphagia Dysphagia Disease Active Overview: Methodi 4-[address] 00:00: g of this [facility]osp[facility] 00 note l might be different from the original. Added automatic ally from request for surgery [id number] CCL / EPS Diagnosis Active 2020-10-15 Memoria PVI 3-30 17:07:00 l ABLATION CCL / 00:00: [place] W/ CARTO / EPS PVI 00 GA / T ABLATION W/ CARTO / GA / T Active 08/19/2020 [facility] Food Food Disease Active 2019-05 [...] (BMI 2-19 ity of 30-39.9) 30-39.9) 00:00: [place] [facility] Anemia Anemia Disease Active 2014-05 Univers 0-03 ity of 00:00: [place] [facility] Hypovolemi Hypovolemi Disease Active 2014-05 U nivers a due to a due to 0-02 ity of hemorrhage hemorrhage 00:[place] [facility] Chest pain Chest pain Disease Active 2014-05 U nivers 0- ity of 00:00: [place] [facility] 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:00: [place] shoulder shoulder 00 Medica l arthroplas arthroplas Br anch ty ty Posttrauma Posttrauma Disease Active U nivers tic stress tic stress 09-27 it y of disorder disorder 00:00: [place] [facility] 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 00:00: [place] virus virus Medical (HIV) (HIV) Branch disease disease Bipolar 2 Bipolar 2 Disease Active Uni vers disorder disorder 11-18 ity of 00:00: [place] [facility] Chronic Chronic Disease Active Univers hepatitis hepatitis 11-18 ity of C C 00:00: [place] [facility] Hypertensi Hypertensi Disease Active U nivers on on 11-18 ity of 00:00: [place] [facility] Allergies, Adverse Reactions, Alerts Allergy Allergy Status Severity Reaction(s) Onset Inactive Treating Comm ents Source Name Type Date Date Clinician sulfamet DA Active SV N/V [facility] hoxazole 1-25 Clear 00:00: Garcia 00 [facility] trimetho DA Active SV [facility] prim 1-25 Clear 00:00: Garcia [facility] codeine DA Active SV N/V [facility] 1-25 Clear 00:00: Garcia [facility] Metoclop Propensi Active [place] ramide ty to [...] Date Stop Date Source Natural father Hypertension [facility] Natural father [facility] Natural father Diabetes [facility] Natural father Other - see comments [facility] mother Cancer [facility] Social History Social Habit Start Date Stop Date Quantity Comments [facility] Alcohol Comment History of tobacco Smoker Method [facility] use Hospital History SDOH [facility] Alcohol Frequency Hospita l History SDOH [facility] Alcohol Std Drinks Hospit al History SDOH [facility] Alcohol Binge Hospital Exposure to Not sure University of SARS-CoV-2 (event) [facility] Alcohol intake 2021-07-14 2021-07-14 Ex-drinker [facility] 00:00:00 00:00:00 (finding) Tobacco use and 2020-10-31 2020-10-31 Smokeless tobacco [facility] exposure 00:00:00 00:00:00 non-user Cigarettes smoked 2020-09-05 2020-09-[address] current (pack per 00:00:00 00:00:00 Hospita l day) - Reported Cigarette 2020-09-05 2020-09-05 [facility] pack-years 00:00:00 00:00:00 Hospital Tobacco Comment 2015-02-14 2015-02-14 Smokes approx 1-2 Un iversity of 00:00:00 00:00:00 cigarettes per [place] [facility] porfirio day when she Branch smokes Sex Ass[birth year] [facility] 00:00:00 00:00:00 Smoking Status Start Date Stop Date Source Former smoker 2020-08-06 00:00:00 2020-08-06 00:00:00 [facility] Medications Ordered Filled Start Stop Current Ordering Indication Dosage Frequency Signature Comments Components Source Medication Medication Date Date Medication? Clinician (SIG) Name Name buPROPion Yes [id number] 150mg Take 1 U nivers XL 4-12 tablet by ity of (WELLBUTRIN 00:00: mouth [place] XL) 150 mg 00 daily. Medical 24 hr Branch tablet busPIRone Yes [id number] 30mg Take 1 Un matt 30 mg 4-12 tablet by ity of tablet 00:00: mouth 2 [place] 00 (two) Medical times Branch daily. SERTraline Yes [id number] 200mg Take 2 Univers 100 mg 4-12 tablets by ity of tablet 00:00: mouth [place] 00 daily. Medical Branch raltegravir Yes [id number] 400mg Take 1 Univers (ISENTRESS) 3-28 tablet by ity of 400 mg 00:00: mouth 2 [place] tablet 00 (two) Medical times Branch daily. LORazepam 1 Yes [id number] 1mg Take 1 Univers mg tablet 3-21 tablet by ity o f 00:00: mouth 3 [place] 00 (three) Medical times Branch daily as needed (anxiety). raltegravir Yes 400mg Q.5D Take 400 U T (Isentress) 2-22 mg by Health 400 MG 09:09: mouth 2 tablet 52 (two) times a day. LORazepam 1 2021- No [id number] 1mg Take 1 Univers mg tablet 2-21 [...] times a tablet day. buPROPion 2021- No [id number] 150mg Take 1 Univers XL -24 -12 tablet by ity of (WELLBUTRIN 00:00: [place] XL[place] 150 mg 00 :00 daily. Medical 24 hr Branch tablet busPIRone 2021- No [id number] 30mg Take 1 U nivers 30 mg 24 -12 tablet by ity of tablet 00:00: 00:00 mouth 2 [place] 00 :00 (two) Medical times Branch daily. SERTraline 2021- No [id number] 200mg Take 2 Univers 100 mg 24 -12 tablets by ity of tablet 00:00: 00:00 mouth [place] 00 :00 daily. Medical Branch emtricitabi Yes [id number] Take one Univers ne-tenofovi 1-20 po daily ity of r alafen 00:00: [place] (DESCOVY) 00 Medical tablet Branch raltegravir 2021- No [id number] 400mg Take 1 Univers (ISENTRESS) -12 03-28 tablet by it y of 400 mg 00:00: 00:00 mouth 2 [place] tablet 00 :00 (two) Medical times Branch daily. metoprolol Yes [id number] Take 1 [facility] tartrate 7-26 tablet Health (Lopressor) 00:00: (100 mg 100 MG 00 total) by tablet mouth 2 (two) times a day AND 0.5 tablets (50 mg total) every night. metoprolol Yes [id number] Take 1 [facility] tartrate 7-26 tablet Health [...] (affected area in groin) hydrALAZINE Yes 50mg Q.[id number] Take 50 mg Methodi (APRESOLINE 7-[id number] ) 50 MG [...] Hospita tablet 25 daily. l nystatin-tr Yes [id number] Apply to [facility] 11-25 area(s) 3 ity of cream 00:00: (three) [place] 00 times Medical daily. Branch budesonide- 2020- No 1{puff} QD Inhale 1 Methodi formoteroL 11-14 06-[address] (SYMBICORT) 14:37: 00:00 morning. H ospita 160-4.5 02 :00 l mcg/actuati on inhaler hydrALAZINE Yes [id number] 50mg Q.[id number] Take 1 UT (Apresoline 6-11 [id number] tablet (50 Health ) 50 MG 00:00: 3D mg total) tablet 00 by mouth 3 (three) times a day. hydrALAZINE Yes [id number] 50mg Q.[id number] Take 1 UT (Apresoline 6-11 [id number] tablet (50 Health ) 50 MG 00:00: [...] % 00:00: ointment 00 nystatin 2020- No [id number] Q.25D Take 5 mL Methodi (MYCOSTATIN 10-06 [...] ia 4-10 (Same as: l 14:00: Norvasc) [place] 00 emtricitabi No Notes: Caesar lisa ne 200 MG / 4-10 (Same as: l tenofovir 14:00: Descovy) Herm ariel alafenamide 00 Non-formul 25 MG Oral nancy Tablet [Descovy] pantoprazol No Notes: Caesar lisa e 4-10 Tablet l 14:00: should not [place] 00 be chewed or crushed. (Same as: Protonix) Amiodarone No Notes: Memor ia 4-10 (Same as: l 14:00: Cordarone) Amlodipine No Notes: Memor ia 4-10 (Same as: l 14:00: Norvasc) [place] 00 emtricitabi No Notes: Caesar lisa ne [...] e 4-10 Tablet l 14:00: should not [place] 00 be chewed or crushed. (Same as: [...] ia 4-10 (Same as: l 14:00: Norvasc) [place] 00 emtricitabi No Notes: Caesar lisa ne 200 MG / 4-10 (Same as: l tenofovir 14:00: Descovy) Herm ariel alafenamide 00 Non-formul 25 MG Oral nancy Tablet [Descovy] Sertraline No Notes: Memor ia 4-10 (Same as: l 14:00: Zoloft) [place] 00 pantoprazol No Notes: Caesar lisa e 4-10 Tablet l 14:00: should not [place] 00 be chewed or crushed. (Same as: Protonix) Amiodarone No Notes: Memor ia 4-10 (Same as: l 14:00: Cordarone) [place] Amlodipine No Notes: Memor ia 4-10 (Same as: l 14:00: Norvasc) [place] emtricitabi No Notes: Caesar lisa ne 200 [...] ia 4-10 (Same as: l 14:00: Norvasc) [place] 00 emtricitabi No Notes: Caesar lisa ne 200 MG / 4-10 (Same as: l tenofovir 14:00: Descovy) Herm ariel alafenamide 00 Non-formul 25 MG Oral nancy Tablet [Descovy] Sertraline No Notes: Memor ia 4-10 (Same as: l 14:00: Zoloft) [place] 00 pantoprazol No Notes: Caesar lisa e 4-10 Tablet l 14:00: should not [place] 00 be chewed or crushed. (Same as: [...] Memoria 4-10 Same as: l 02:00: Eliquis [place] Hydralazine No Notes: Caesar lisa Hydrochlori 4-10 (Same as: l de 50 MG 02:00: Apresoline Her mitchell Oral Tablet 00 ) May interfere w/enteral feedings Take With Food Sucralfate No Notes: May M emoria 4-10 interfere l 02:00: w/enteral [place] 00 feeds - Take 1 hr before [...] Memoria 4-10 Same as: l 02:00: Eliquis [place] 00 Hydralazine No Notes: Caesar lisa Hydrochlori 4-10 (Same as: l de 50 MG 02:00: Apresoline Her mitchell Oral Tablet 00 ) May interfere w/enteral feedings Take With Food Sucralfate No Notes: May M emoria 4-10 interfere l 02:00: w/enteral [place] 00 feeds - Take 1 hr before [...] M emoria 4-10 interfere l 02:00: w/enteral [place] 00 feeds - Take 1 hr before or 2 hr after antacids, dairy pdt, meals & minerals - On empty stomach. For patients unable to swallow tablet, dissolve in 10mL - 30mL of water or juice and stir before giving. (Same As: Carafate) Saline No Notes: Memoria Flush 0.9% 4-10 (Same as: l 02:00: BD [place] 00 Posiflush) Eliquis No Notes: Memoria 4-10 Same as: l 02:00: Eliquis [place] Hydralazine No Notes: Caesar lisa Hydrochlori 4-10 [...] not exceed l #3 00:12: 4gm/day of [place] 00 acetaminop hen. (Same as: Tylenol with Codeine # 3) acetaminoph No Notes: Do M emoria en-codeine 4-10 not exceed l #3 00:12: 4gm/day of [place] acetaminop hen. (Same as: Tylenol with Codeine # 3) acetaminoph No Notes: Do M emoria en-codeine 4-10 not exceed l #3 00:12: 4gm/day of [place] acetaminop hen. (Same as: Tylenol with Codeine # 3) acetaminoph No Notes: Do M emoria en-codeine 4-10 not exceed l #3 00:12: 4gm/day of [place] acetaminop hen. (Same as: Tylenol with Codeine [...] oria 4-09 tab, l 22:00: Route: PO, [place] Drug form: TAB, BID, Dosing Weight 97.273, kg, Start date: 08/29/20 17:00:00 CDT, Duration: 30 day, Stop date: 09/28/20 9:00:00 CDT metoprolol 2020-0 No 100 mg, 1 Me moria tartrate - tab, l 22:00: Route: PO, [place] 00 Drug form: TAB, BID, Dosing Weight [...] oria 4-09 tab, l 22:00: Route: PO, [place] 00 Drug form: TAB, BID, Dosing Weight [...] tartrate 4-09 tab, l 22:00: Route: PO, [place] Drug form: TAB, BID, Dosing Weight 97.273, [...] oria 4-09 tab, l 22:00: Route: PO, [place] Drug form: TAB, BID, Dosing Weight 97.273, [...] oria 4-09 tab, l 22:00: Route: PO, [place] 00 Drug form: TAB, BID, Dosing Weight [...] oria -09 tab, l 22:00: Route: PO, [place] 00 Drug form: TAB, BID, Dosing Weight [...] Notes: Memoria 4-09 (Same l 17:07: as:MORPhin [place] 00 e Sulfate) Morphine No Notes: Memoria 4-09 (Same l 17:07: as:MORPhin [place] 00 e Sulfate) Morphine No Notes: Memoria 4-09 (Same l 17:07: as:MORPhin [place] 00 e Sulfate) Morphine No Notes: Memoria 4-09 (Same l 17:07: as:MORPhin [place] 00 e Sulfate) Morphine No Notes: Memoria 4-09 (Same l 17:07: as:MORPhin [place] 00 e Sulfate) buPROPion No 150 mg, [...] Marty 00 Stop date: 08/29/20 10:40:00 CDT neostigmine [...] 30 tab, 0 coated Refill(s), tablet Pharmacy: [facility] 149, 162.56, cm, 08/29/20 5:30:00 CDT, Height, 97.273, kg, 08/29/20 5:30:00 CDT, Weight pantoprazol 2021-0 Yes 40 mg = 1 M emoria e 40 mg 4-09 tab, PO, l oral 15:27: Daily, # Marty enteric 00 30 tab, 0 coated Refill(s), tablet [facility]: [facility] 149, 162.56, cm, 08/29/20 5:30:00 CDT, Height, 97.273, kg, 08/29/20 5:30:00 CDT, Weight pantoprazol 2021-0 Yes 40 mg = 1 M emoria e 40 mg 4-09 tab, PO, l oral 15:27: Daily, # [place] enteric 00 30 tab, 0 coated Refill(s), tablet [facility], 162.56, cm, 08/29/20 [...] 30 tab, 0 coated Refill(s), tablet [facility], 162.56, cm, 08/29/20 5:30:00 CDT, Height, 97.273, kg, 08/29/20 5:30:00 CDT, Weight pantoprazol 2020-0 Yes 40 mg = 1 M emoria e 40 mg 4-09 tab, PO, l oral 15:27: Daily, # [place] enteric 00 30 tab, 0 coated Refill(s), tablet Pharmacy: [facility] 149, 162.56, cm, 08/29/20 5:30:00 CDT, [...] Skylar nn 00 tab, 0 Refill(s), Pharmacy: [facility] 149, 162.56, cm, 08/29/20 5:30:00 CDT, [...] Skylar nn 00 tab, 0 Refill(s), Pharmacy: [place] [address], 162.56, cm, 08/29/20 5:30:00 CDT, Height, 97.273, [...] Skylar nn 00 tab, 0 Refill(s), Pharmacy: [facility] 149, 162.56, cm, 08/29/20 5:30:00 CDT, [...] Skylar nn 00 tab, 0 Refill(s), Pharmacy: [facility] 149, 162.56, cm, 08/29/20 5:30:00 CDT, [...] Skylar nn 00 tab, 0 Refill(s), Pharmacy: [place] [address], 162.56, cm, 08/29/20 5:30:00 CDT, Height, 97.273, [...] Skylar nn 00 tab, 0 Refill(s), Pharmacy: [facility] 149, 162.56, cm, 08/29/20 5:30:00 CDT, Height, 97.273, kg, 08/29/20 5:30:00 CDT, Weight pantoprazol No 40 mg = 1 M emoria e 40 mg 4-09 tab, PO, l oral 15:26: Daily, # [place] enteric 00 30 tab, 0 coated Refill(s) tablet sucralfate Yes 1 gm = 1 Mem oria 1 g oral 4-09 tab, PO, l tablet 15:26: Q12H, # 28 Skylar nn 00 tab, 0 Refill(s), Pharmacy: [facility] 149, 162.56, cm, 08/29/20 5:30:00 CDT, Height, 97.273, kg, 08/29/20 5:30:00 CDT, Weight Saline No Notes: Memoria Flush 0.9% 4-09 (Same as: l 15:25: BD [place] 00 Posiflush) Lorazepam No Notes: Memori a 4-09 (Same as: l 15:25: Ativan) Saline No Notes: Memoria Flush 0.9% 4-09 (Same as: l 15:25: BD [place] 00 Posiflush) Lorazepam No Notes: Memori a 4-09 (Same as: l 15:25: Ativan) Saline No Notes: Memoria Flush 0.9% 4-09 (Same as: l 15:25: BD [place] 00 Posiflush) Saline No Notes: Memoria Flush 0.9% 4-09 (Same as: l 15:25: BD [place] 00 Posiflush) Lorazepam No Notes: Memori a 4-09 (Same as: l 15:25: Ativan) [place] 00 Lorazepam No Notes: Memori a 4-09 (Same as: l 15:25: Ativan) Saline No Notes: Memoria Flush 0.9% 4-09 (Same as: l 15:25: BD [place] 00 Posiflush) Lorazepam No Notes: Memori a [...] oria ne 08-29 Route: l 14:01: IVP, [place] 00 Q5Min, Dosing Weight 97.273, kg, PRN [...] Memori a 08-29 Route: l 14:01: IVP, [place] 00 Q2MIN, Dosing Weight 97.273, kg, PRN [...] Memori a 08-29 Route: l 14:01: IVP, [place] 00 Q5Min, Dosing Weight 97.273, kg, PRN Elevated BP, Start date: 08/29/20 9:01:00 CDT, Duration: 5 doses or times, Stop date: Limited # of times Acetaminoph 1-0 No 1,000 mg, M emoria en 08-29 Route: PO, l 14:01: Drug form: [place] 00 TAB, ONCE, Dosing Weight 97.273, kg, [...] ia 08-29 Route: l 14:01: IVP, ONCE, [place] 00 Dosing Weight 97.273, kg, PRN Nausea & Vomiting, Start date: 08/29/20 9:01:00 CDT Labetalol 1-0 No 10 mg, Memori a 08-29 Route: l 14:01: IVP, [place] 00 Q5Min, Dosing Weight 97.273, kg, PRN [...] oria ne 08-29 Route: l 14:01: IVP, [place] 00 Q5Min, Dosing Weight 97.273, kg, PRN Pain Score 7-10, Start date: 08/29/20 9:01:00 CDT, Duration: 4 doses or times, Stop date: Limited # of times Flumazenil 1-0 No 0.2 mg, Caesar lisa 08-29 Route: l 14:01: IVP, PRN, [place] 00 Dosing Weight 97.273, kg, PRN Benzodiaze pine Reversal, Initial dose, Start date: 08/29/20 9:01:00 CDT, Duration: 30 day, Stop date: 09/28/20 9:00:00 CDT Naloxone 2021-0 No 0.4 mg, Memori a 08-29 Route: l 14:01: IVP, [place] 00 Q2MIN, Dosing Weight 97.273, kg, PRN [...] 08-29 Route: PO, l 14:01: Drug form: [place] 00 TAB, ONCE, Dosing Weight 97.273, kg, [...] oria ne 08-29 Route: l 14:01: IVP, [place] 00 Q5Min, Dosing Weight 97.273, kg, PRN Pain Score 7-10, Start date: 08/29/20 9:01:00 CDT, Duration: 4 doses or times, Stop date: Limited # of times Flumazenil 2021-0 No 0.2 mg, Caesar lisa 4-09 Route: l 14:01: IVP, PRN, [place] 00 Dosing Weight 97.273, kg, PRN Benzodiaze [...] lisa 4- Route: l 14:01: IVP, PRN, [place] 00 Dosing Weight 97.273, kg, PRN Benzodiaze pine Reversal, Initial dose, Start date: 08/29/20 9:01:00 CDT, Duration: 30 day, Stop date: 09/28/20 9:00:00 CDT Ondansetron 2021-0 No 4 mg, Memor ia 4- Route: l 14:01: IVP, ONCE, [place] 00 Dosing Weight 97.273, kg, PRN Nausea & Vomiting, Start date: 08/29/20 9:01:00 CDT Naloxone 2021-0 No 0.4 mg, Memori a 4- Route: l 14:01: IVP, [place] 00 Q2MIN, Dosing Weight 97.273, kg, PRN Narcotic Reversal, Start date: 08/29/20 9:01:00 CDT, Duration: 8 doses or times, Stop date: Limited # of times Ondansetron 2021-0 No 4 mg, Memor ia 4- Route: l 14:01: IVP, ONCE, Marty 00 [...] 08-29 Route: PO, l 14:01: Drug form: [place] 00 TAB, ONCE, Dosing Weight 97.273, kg, [...] lisa 08-29 Route: l 14:01: IVP, PRN, [place] 00 Dosing Weight 97.273, kg, PRN Benzodiaze [...] ia 08-29 Route: l 14:01: IVP, ONCE, [place] 00 Dosing Weight 97.273, kg, PRN Nausea & Vomiting, Start date: 08/29/20 9:01:00 CDT Labetalol 1-0 No 10 mg, Memori a 08-29 Route: l 14:01: IVP, [place] 00 Q5Min, Dosing Weight 97.273, kg, PRN Elevated BP, Start date: 08/29/20 9:01:00 CDT, Duration: 5 doses or times, Stop date: Limited # of times Acetaminoph 2020-0 No 1,000 mg, M emoria en 08-29 Route: PO, l 14:01: Drug form: [place] 00 TAB, ONCE, Dosing Weight 97.273, kg, [...] Drug form: l 10 13:15: INJ, Start [place] microgram date: 08/29/20 8:15:00 CDT, Stop date: [...] Drug form: l 10 13:15: INJ, Start [place] microgram 00 date: 08/29/20 8:15:00 CDT, Stop date: 08/29/20 9:15:00 CDT Sodium 2020-0 No Route: IV, Memor ia Chloride 4-09 Total l 0.9% IV 12:30: Volume: Marty (ANES) 1000 00 1,000, mL Start date: 08/29/20 7:30:00 CDT, Stop date: 08/29/20 8:30:00 CDT Sodium 1-0 No Route: IV, Memor ia Chloride 4-09 Total l 0.9% IV 12:30: Volume: [place] (ANES) 1000 00 1,000, mL Start date: [...] 4-09 Total l 0.9% IV 12:30: Volume: [place] (ANES) 1000 00 1,000, mL Start date: [...] PO, l Hydrochlori 11:42: Q24H, # 30 [place] de 150 MG 00 tab, 0 Extended [...] PO, l Hydrochlori 11:42: Q24H, # 30 [place] de 150 MG 00 tab, 0 Extended [...] 08-29 Q12H, tab, l Tablet 11:41: 0 [place] [Eliquis] 00 Refill(s), For Atrial Fibrilatio n [...] - Q12H, tab, l Tablet 11:41: 0 [place] [Eliquis] 00 Refill(s), For Atrial Fibrilatio n apixaban 5 2020-0 Yes 5 mg, PO, Me moria MG Oral 4- Q12H, tab, l Tablet 11:41: 0 [place] [Eliquis] 00 Refill(s), For Atrial Fibrilatio n apixaban 5 2020-0 Yes 5 mg, PO, Me moria MG Oral 4- Q12H, tab, l Tablet 11:41: 0 [place] [Eliquis] 00 Refill(s), For Atrial Fibrilatio n AMIODarone 2020-0 Yes 200 mg = 1 M emoria 200 mg oral 4-09 tab, PO, l tablet 11:38: Daily, # [place] 00 90 tab, 3 Refill(s) AMIODarone 2020-0 Yes 200 mg = 1 M emoria 200 mg oral 4-09 tab, PO, l tablet 11:38: Daily, # [place] 00 90 tab, 3 Refill(s) AMIODarone 2020-0 Yes 200 mg = 1 M emoria 200 mg oral 4-09 tab, PO, l tablet 11:38: Daily, # [place] 00 90 tab, 3 Refill(s) AMIODarone 2020-0 [...] tab, PO, l tablet 11:38: Daily, # [place] 00 90 tab, 3 Refill(s) AMIODarone 2020-0 [...] it y of mg tablet 08:18: (two) [place] 30 times Medical daily. Branch amiodarone Yes [...] Univers 90 4-14 ity of mcg/actuati 00:00: [place] on inhaler 00 Medical Branch albuterol Yes [...] Immunizations Ordered Filled Immunization Date Status Comments [facility] e Immunization Name Name PFIZER COVID-19 2020-07-23 Completed [facility] MRNA VACCINATION 00:00:00 [facility] PFIZER COVID-19 2020-07-02 Completed [facility] MRNA VACCINATION 00:00:00 [facility] Influenza Virus 2017-03-08 Completed Universit y of Vaccine 00:00:00 [facility] Influenza Virus 2014-01-30 Completed Universit y of Vaccine (3+ yrs) 00:00:00 [facility] dical Branch Pneumococcal 13 2014-01-30 Completed Universit y of Conjugate, PCV13 00:00:00 [facility] dical (Prevnar 13) Branch Pneumococcal 2012-02-16 Completed University o f Polysaccharide, 00:00:00 [facility] PPSV23 (PNEUMOVAX) Branch Influenza Virus 2012-02-16 Completed Universit y of Vaccine 00:00:00 [facility] PPD (TB) 2012-02-16 Completed University of 00:00:00 [facility] Hep B, Adol or Pedi 2011-09-01 Completed Unive rsity of Dosage 00:00:00 [facility] Hep B, Adol or Pedi 2011-03-17 Completed Unive rsity of Dosage 00:00:00 [facility] Influenza Virus 2011-02-10 Completed Universit y of Vaccine 00:00:00 [facility] Hep B, Adol or Pedi 2011-02-10 Completed Unive rsity of Dosage 00:00:00 [facility] PPD (TB) 2010-11-18 Completed University of 00:00:00 [facility] TDAP (ADACEL) 2010-11-18 Completed University of VACCINE 00:00:00 [facility] HEPATITIS A 2004-03-02 Completed University of 00:00:00 [facility] HEPATITIS A 2003-08-01 Completed University of 00:00:00 [facility] Pneumococcal 2001-10-04 Completed University o f Polysaccharide, 00:00:00 [facility] [place] ical PPSV23 (PNEUMOVAX) Branch PPD () 2001-10-04 Completed University of 00:00:00 [facility] Vital Signs Vital Name Observation Time Observation Value Comments Source Systolic blood 2021-07-14 15:18:00 142 mm[Hg] [facility] Diastolic blood 2021-07-14 15:18:00 76 mm[Hg] [facility] Heart rate 2021-07-14 15:18:00 61 [facility] 2021-07-14 15:18:00 162.6 [facility] weight 2021-07-14 15:18:00 94.802 [facility] BMI 2021-07-14 15:18:00 35.87 kg/m2 [facility] Systolic blood 2021-08-21 13:13:00 191 mm[Hg] Univer sity of pressure [facility] Diastolic blood 2021-08-21 13:13:00 99 mm[Hg] Unive rsity of pressure [facility] Heart rate 2021-08-21 13:13:00 52 /min [facility] Body temperature 2021-08-21 13:11:00 36.5 [facility] 2021-08-21 13:11:00 16 /min [facility] Body height 2021-08-21 13:11:00 162.6 cm [facility] Body weight 2021-08-21 13:11:00 93.759 kg [facility] BMI 2021-08-21 13:11:00 35.48 kg/m2 [facility] Oxygen saturation in 2021-08-21 13:11:00 95 /min University Arterial blood by [facility] Pulse oximetry Branch Systolic blood 2020-12-08 15:48:00 125 mm[Hg] Method [facility] pressure Diastolic blood 2020-12-08 15:48:00 76 mm[Hg] [facility] pressure Heart rate 2020-12-08 15:48:00 64 /min [facility] Body temperature 2020-12-08 15:48:00 36.61 Amina [facility] Respiratory rate 2020-12-08 15:48:00 17 /min [facility] Body height 2020-12-08 15:48:00 162.6 cm [facility] Body weight 2020-12-08 15:48:00 98.884 kg [facility] BMI 2020-12-08 15:48:00 37.42 kg/m2 [facility] Oxygen saturation in 2020-12-08 15:48:00 97 /min [facility] Arterial blood by Pulse oximetry Respitory Rate 2020-08-30 13:00:00 Memori al Inman Systolic (mm Hg) 2020-08-30 13:00:00 Caesar rial Inman Diastolic (mm Hg) 2020-08-30 13:00:00 Mem orial Inman Systolic (mm Hg) 2020-08-30 11:00:00 Caesar rial Inman Diastolic (mm Hg) 2020-08-30 11:00:00 Mem orial Inman Temperature Oral (F) 2020-08-30 11:00:00 98.4 F [facility] Respitory Rate 2020-08-30 11:00:00 Memori al Marty Respitory Rate 2020-08-30 10:00:00 Memori al Marty Systolic (mm Hg) 2020-08-30 10:00:00 Caesar rial Marty Diastolic (mm Hg) 2020-08-30 10:00:00 Mem orial Marty Temperature Oral (F) 2020-08-30 00:00:00 96.9 F [facility] Marty Temperature Oral (F) 2020-08-29 11:26:00 97.6 F [facility] Height 2020-08-29 10:30:00 162.56 cm [facility] Weight 2020-08-29 10:30:00 [facility] BMI Calculated 2020-08-29 10:30:00 Darien Hammond Procedures Procedure Date / Time Performing Clinician Source Performed ECG 12-LEAD 2021-07-14 15:14:00 Elan Lira [facility] [id number] 2021-06-17 00:00:00 RIYK [facility] CONSENT/REFUSAL FOR 2021-06-15 16:11:59 [facility] DIAGNOSIS AND TREATMENT [facility] ASSIGNMENT OF BENEFITS 2021-06-15 16:11:40 [facility] GASTROINTESTINAL PANEL 2020-12-08 22:21:00 Yazmin [facility] XR ABDOMEN 1 VW 2020-12-08 18:06:32 Eliseo Glaser spital OR [place] < 1 HOUR 2020-09-05 22:39:00 Eliseo Glaser spital SURGICAL PATHOLOGY REQUEST 2020-09-05 21:54:00 Eliseo Glaser [facility] XR CHEST 1 VW PORTABLE 2020-09-05 19:55:00 Eliseo Glaser [facility] DISCHARGE PATIENT 2020-09-05 17:27:55 Lucas Harris [facility] [place] AN ELECTIVE 2020-09-05 16:47:23 Kirit Flood [facility] ENDOTRACHEAL AIRWAY EGD, INTRAOPERATIVE 2020-09-05 16:27:00 [facility] 2020-09-05 15:04:00 Sarai Maharaj [facility] TIME (PTT) M. PROTHROMBIN TIME WITH INR 2020-09-05 15:04:00 Mindy Maharaj [facility] MChelsie Plan of Care Planned Activity Planned Date Details Comments Source Future Scheduled 2021-08-26 Screening for [facility] Test 13:02:23 malignant neoplasm of cervix (procedure) [code = 418254381] Future Scheduled 2021-08-26 BREAST CANCER [facility] Test 13:02:23 SCREENING [code = BREAST CANCER SCREENING] Future Scheduled 2021-08-26 COLONOSCOPY SCREENING [facility] Test 13:02:23 [code = COLONOSCOPY SCREENING] Future Scheduled 2021-08-26 [facility] Test 13:02:23 malignant neoplasm of lung (procedure) [code = 399946257] Future Scheduled 2021-08-26 SHINGLES VACCINES (#1) [facility] Test 13:02:23 [code = SHINGLES VACCINES (#1)] Future Scheduled 2021-08-26 COVID-19 VACCINE (3 - [facility] Test 13:02:23 Pfizer risk 4-dose series) [code = COVID-19 VACCINE (3 - Pfizer risk 4-dose series)] Future Scheduled 2021-08-26 65+ [facility]AL [facility] Test 13:02:23 VACCINE (4 of 4 - PPSV23) [code = 65+ PNEUMOCOCCAL VACCINE (4 of 4 - PPSV23)] Future Scheduled 2021-08-26 INFLUENZA VACCINE [facility] Test 13:02:23 [code = INFLUENZA VACCINE] Encounters Start End Encounter Admission Attending Care Care Encounter Source Date/Time Date/Time Type Type Clinicians Facility Department ID 2021-08-03 Inpatient Ashely, EDUARDOCL OUTD [id number] [facility] 11:30:00 Mike [id number] [facility] 2021-07-14 Outpatient JENNY [facility] [id number] [place] 09:33:51 [facility] 2021-06-16 Inpatient RAUL Lund, EDUARDOCL OUTD [id number] [facility] 08:30:00 Mike [id number] [facility] 2021-06-15 Inpatient RAUL Lund, EDUARDOCL OUTD [id number] [facility] 10:30:00 Mike [id number] [facility] 2021-09-07 2021-09-07 Outpatient Marika KOEHLER [facility] [id number] Univers 08:00:00 08:00:00 EMERITA rodas [facility] 2021-08-21 2021-08-21 Water Purifier Santiago Cardenas 1.2.840.1 [id number] Univers 10:45:00 10:45:00 Visit [facility] 88429.1.1 ity of 3.104.2.7 [place] .3.518031 Medica l .8 Branch 2021-08-21 2021-08-21 Office East, 1.2.840.4 [id number] Univers 08:30:00 09:00:00 Visit Santiaog 91294.1.1 ity of 3.104.2.7 [place] .3.823940 Medica l .8 Branch 2021-08-21 2021-08-21 Travel 1.2.840.1 1.2.096.253 [id number] Univers 00:00:00 00:00:00 59917.1.1 350.1.13.10 ity of 3.104.2.7 [place].698 [place]3.1848[place] 084.8 Medica l .8 [place] 2021-08-14 2021-08-14 Telephone East, 1.2.840.1 [id number] Univers 00:00:00 00:00:00 Santiago 02190.1.1 ity of 3.104.2.7 [place] .3.937522 Medica l .8 [place] 2021-08-13 2021-08-13 Telephone East, 1.2.840.9 [id number] Univers 00:00:00 00:00:00 Santiago 50176.1.1 ity of 3.104.2.7 [place] .3.856763 Medica l .8 [place] 2021-08-05 2021-08-05 Outpatient WINTER Leal HCACL [id number] [facility] 05:24:00 05:24:00 Mike 31 [facility] 2021-08-05 2021-08-05 Outpatient RAUL Lund, HCACL OUTD [id number] [facility] 05:24:00 05:24:00 Mike [id number] [facility] 2021-07-14 2021-07-14 Office KIMBERLEY Lira 6400 1.2.840.114 13 [id number] [place] 08:45:00 09:34:01 Visit Elan ROMERO 350.1.13.58 Health 9.2.7.2.686 [id number] 1 2021-07-09 2021-07-09 Telephone Ap, KIMBERLEY 6400 1.2.840.114 [id number] [place] 00:00:00 00:00:[address] 350.1.13.58 [facility] 9.2.7.2.686 [id number] 1 2021-06-17 2021-06-17 Inpatient RAUL Lund, HCACL INTE.02 [id number] [facility] 10:56:00 14:36:00 Imke [id number] [facility] 2021-06-17 2021-06-17 Inpatient RAUL Lund, HCACL INTE.02 [id number] [facility] 10:56:00 14:36:00 Mike 47 [facility] 2021-06-15 2021-06-15 Orders Doctor 1.2.840.4 [id number] Univers 00:00:00 00:00:00 Only Unassigned, 96688.1.1 ity of [place] 3.104.2.7 [place] .3.644389 Medica l .8 Branch 2021-06-15 2021-06-15 Travel 1.2.840.1 1.2.487.973 [id number] Univers 00:00:00 00:00:00 91990.1.1 350.1.13.10 ity of 3.104.2.7 4[place]7.3.698 [place] .3.009937 084.8 Medica l .8 Branch 2021-06-11 2021-06-11 Refill East, 1.2.840.6 [id number] Univers 00:00:00 00:00:00 Santiago 00557.1.1 ity of 3.104.2.7 [place] .3.347612 Medica l .8 Branch 2021-04-28 2021-04-28 Telephone Yazmin, 1.2.840.3 [id number] Methodi 00:00:00 00:00:[address] 3.430.2.7 Hospit a .3.304713 l .8 2021-03-31 2021-03-31 [facility], 1.2.840.1 [id number] Methodi 00:00:00 00:00:00 Only Sarai Lieberman 92235.1.1 979 s t 3.430.2.7 Hospit a .3.644320 l .8 2021-03-24 2021-03-24 [facility] 1.2.840.4 [id number] Methodi 00:00:00 00:00:[address] 3.430.2.7 Hospit a .3.488178 l .8 2021-01-19 2021-01-19 Telephone Pelletier, 1.2.840.1 [id number] [id number] Methodi 00:00:00 00:00:[address] 3.430.2.7 Hospit a .3.934858 l .8 2020-12-12 2020-12-12 Office Hematpour, [facility] 6400 1.2.840.114 12 [id number] 07:42:02 08:18:[address] 350.1.13.58 9.2.7.2.686 [id number] 1 2020-12-09 2020-12-09 Telephone [facility], 1.2.840.1 [id number] Methodi 00:00:00 00:00:00 Sarai Lieberman 56700.1.1 316 s t 3.430.2.7 Hospit a .3.438339 l .8 2020-12-08 2020-12-08 [facility], 1.2.840.1 [id number] 2100 [id number] Methodi 12:35:54 23:59:00 Encounter Ray 64628.1.[address] 3.430.2.7 Hospit a .3.068872 l .8 2020-12-08 2020-12-[facility] 1.2.840.1 [id number] Methodi 17:25:00 17:30:[address] 3.430.2.7 Hospit a .3.184614 l .8 2020-12-08 2020-12-08 Office Yazmin, 1.2.840.1 [id number] 46298 Methodi 10:30:00 11:39:56 Visit Ray 74397.1.[address] 3.430.2.7 Hospit a .3.073967 l .8 2020-12-08 2020-12-08 Travel 1.2.840.1 1.2.249.983 8507 [id number] Methodi 00:00:00 00:00:[address] 3.430.2.7 0.2.7.3.698 Ho spita .3.505285 084.8 l .8 2020-12-02 2020-12-02 Water Purifier [facility] 1.2.840.114 8 [id number] 10:20:06 10:36:19 Visit Y HEALTH 350.1.13.10 [facility] 4.2.7.2.686 [id number] 316 2020-11-25 2020-11-25 Office MEGHA Beltran 1.2.840.114 [id number] 11:06:30 11:58:14 Visit Robbi R [employer] [facility] 350.1.13.10 REGIONAL 4.2.7.2.686 MATERNAL [id number] & CHILD 107 [facility] 2020-11-25 2020-11-25 [facility] 1.2.814.146 0566 4592 00:00:00 00:00:00 Santiago Y HEALTH 350.1.13.10 CLINICS 4.2.7.2.686 [id number] 089 2020-11-25 2020-11-25 Telephone Devin [facility] 1.2.521.080 8225 0821 00:00:00 00:00:00 Rossandynda R [employer] 350.1.13.10 REGIONAL 4.2.7.2.686 MATERNAL [id number] & CHILD 107 [facility] 2020-11-14 2020-11-14 Abstract Rodas, 1.2.840.1 [id number] [id number] Methodi 00:00:00 00:00:[address] 3.430.2.7 Hospit a .3.272896 l .8 2020-11-14 2020-11-14 Telephone Clark, 1.2.840.1 [id number] 2099 [id number] Methodi 00:00:00 00:00:[address] 3.430.2.7 Hospit a .3.594392 l .8 2020-11-07 2020-11-07 Telephone Diana, KIMBERLEY 6400 1.2.840.114 124 [id number] 00:00:00 00:00:[address] 350.1.13.58 9.2.7.2.686 [id number] 1 2020-10-27 2020-10-27 Telephone Yazmin, 1.2.840.0 [id number] Methodi 00:00:00 00:00:[address] 3.430.2.7 Hospit a .3.454604 l .8 2020-10-24 2020-10-24 Telephone Rodas, 1.2.840.1 [id number] 2099 [id number] Methodi 00:00:00 00:00:[address] 3.430.2.7 Hospit a .3.567389 l .8 2020-10-06 2020-10-12 Telemedici [facility], 1.2.840.1 [id number] Methodi 15:30:00 00:08:46 [address] Ray [address]8798.1.[address] 3.430.2.7 Hospit a .3.076329 l .8 2020-09-30 2020-09-30 Telephone Yazmin, 1.2.840.8 [id number] Methodi 00:00:00 00:00:[address] 3.430.2.7 Hospit a .3.335423 l .8 2020-09-21 2020-09-21 Travel 1.2.840.1 1.2.782.564 0964 [id number] Methodi 00:00:00 00:00:[address] 3.430.2.7 0.2.7.3.698 spita .3.607759 084.8 l .8 2020-09-06 2020-09-06 [facility] 1.2.840.1 [id number] 78091 Methodi 17:42:30 23:59:[address] 3.430.2.7 Hospit a .3.690023 l .8 2020-09-06 2020-09-06 [facility], 1.2.840.1 [id number] 2099 [id number] Methodi 16:50:00 17:41:00 Encounter Ray [address]11.1.[address] 3.430.2.7 Hospit a .3.622523 l .8 2020-09-05 2020-09-05 [facility], 1.2.840.1 [id number] 2099 [id number] Methodi 09:17:00 19:45:00 Encounter Ray [address].1.[address] 3.430.2.7 Hospit a .3.936961 l .8 2020-09-05 2020-09-05 Surgery [facility], 1.2.840.1 [id number] 99692 Methodi 11:30:00 13:15:[address] 3.430.2.7 Hospit a .3.146918 l .8 2020-09-05 2020-09-05 Anesthesia [facility], 1.2.840.1 [id number] Methodi 11:27:00 12:20:00 Event Kirit 52809.1.1 243 s t V. 3.430.2.7 Hospit a .3.930315 l .8 2020-09-05 2020-09-05 Travel 1.2.840.1 1.2.538.113 0055 [id number] Methodi 00:00:00 00:00:[address] 3.430.2.7 0.2.7.3.698 Ho spita .3.495746 084.8 l .8 2020-09-04 2020-09-04 Telephone Meisen[place], 1.2.840.1 [id number] Methodi 00:00:00 00:00:00 Sarai Lieberman 92547.1.1 762 s t 3.430.2.7 Hospit a .3.156009 l .8 2020-09-02 2020-09-02 Telephone [place], 1.2.840.1 [id number] Methodi 00:00:00 00:00:00 Sarai Lieberman 02889.1.1 344 s t 3.430.2.7 Hospit a .3.184285 l .8 2020-08-29 2020-08-30 [facility] [id number] [facility] 10:20:00 14:10:00 Outpatient [facility] 00 l [facility] 2020-08-29 2020-08-30 Outpatient HEM[facility]OUR, [facility] CAR 7500 [facility] 05:20:00 09:10:00 BEVERLY Results Test Description Test Time Test Comments Results Result Comments Source Novel Coronavirus 2018 Inhouse 2021-08-03 18:08:00 Test Item Value Reference Range Interpretation Comme nts Novel Coronavirus 2018 Negative Negative Posit bruno results are indicative of the Inhouse (test code = presenc e itEAEL-ZlP-5 RNA, clinical COVNONPUI) correlation wit h patient [...] vaccinations, a ntiviraltherapeutics, antibiotics, ch emotherapeutic orimmunosuppres ashely drugs have not been evaluated for e ffectson detection. Results are for the identification of SARS-CoV-2 RNA usingreal-time (RT) polymerase sedrick n reaction (PCR) technologyfor t he qualitative detection of nucleic acid s from lvgIULY-CdK-3 virus and diagn osis of SARS-CoV-2 virusinfection. It is an Emergency Use Authorization ( EUA) testauthorized by the U.S. FDA. BASIC METABOLIC [id number] 09:37:00 Test Item Value Reference Range Interpretation [...] = 9.0 mg/dL 8.0-10.5 N CA) PROTHROMBIN [id number] 09:32:00 Test Item Value Reference Range Interpretation [...] o prevent recurre nt infarct). 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 BASIC METABOLIC [id number] 11:37:00 Test Item Value Reference Range Interpretation [...] code = 9.0 mg/dL 8.0-10.5 N CA) [id number] 11:37:00 Test Item Value Reference Range Interpretation Comments PREALBUMIN (test code = PREALB) 24.3 mg/dL 16.0-40.0 N PROTHROMBIN [id number] 11:03:00 Test Item Value Reference Range Interpretation [...] o prevent recurre nt infarct). CBC W/AUTO [id number] 10:59:00 Test Item Value Reference Range Interpretation [...] 0.0-0.1 N NRBC#) - XR CHEST 2 [id number] 00:00:00 [facility] 1955 Sex: F FAX: Lele Olivera DO [phone] [place]: St: PRE FAX: Jean Paul Scales MD [phone] Name: LIO WATTS [facility] : 1955 Age/S: 66/F [address] [place] [address] Unit #: [id number] Loc: [place] [address] Phys: [facility] [id number] Dis Date: Status: PRE [facility] PHONE #: [phone] Exam Date: 06/16/2021 1120 FAX #: [phone] Reason: PREOP EXAMS: CPT CODE: [id number] XR CHEST 2 V 07346 PROCEDURE INFORMATION: Exam: XR Chest Exam date [...] Technologist: Danielle Nix RT(R) Trnscrd Date/Time/By: 06/16/2021 (2129) : By: [email or web address] Orig Print D/T: S: 06/16/2021 (1192) PAGE 1 Signed ReportGastrointestinal [id number] 04:35:05 Test Item Value Reference Interpretation Comments [...] Rotavirus PCR (test Not Detected code = 6724482) Salmonella PCR (test Not Detected code = [...] PCR Not Detected (test code = 7124) [facility] [id number] 19:30:47 Test Item Value Reference Range Interpretation Comments Case number (test [id number] code = 6178136) Surgical pathology See link below for PDF report (test code = Lab Report 2255) Result status (test This is Supplemental code = 3679184) Report for [id number] [facility]2021-04-09 16:31:00 Test Item Value Reference Range Interpretation Comments POC Activated Clotting Time (test code 153 s = POC Activated Clotting Time) [place] [id number] 16:31:00 Test Item Value Reference Range Interpretation Comments POC Activated Clotting Time (test code 153 s = POC Activated Clotting Time) [place] 323381-04-09 16:31:00 Test Item Value Reference Range Interpretation Comments POC Activated Clotting Time (test code 153 s = POC Activated Clotting Time) [place] 323381-04-09 16:31:00 Test Item Value Reference Range Interpretation Comments POC Activated Clotting Time (test code 153 s = POC Activated Clotting Time) [id number] 16:31:00 Test Item Value Reference Range Interpretation Comments POC Activated Clotting Time (test code 153 s = POC Activated Clotting Time) [facility] Wor[id number] 16:31:00 Test Item Value Reference Range Interpretation Comments POC Activated Clotting Time (test code 153 s = POC Activated Clotting Time) [facility] WorthMjnukfeNEGPWCTKJZ2555-32-23 16:31:00 Test Item Value Reference Range Interpretation Comments POC Activated Clotting Time (test code 153 s = POC Activated Clotting Time) [place] 323381-04-09 14:37:00 Test Item Value Reference Range Interpretation Comments POC Activated Clotting Time (test code 454 s = POC Activated Clotting Time) [place] 323381-04-09 14:37:00 Test Item Value Reference Range Interpretation Comments POC Activated Clotting Time (test code 454 s = POC Activated Clotting Time) [place] 323381-04-09 14:37:00 Test Item Value Reference Range Interpretation Comments POC Activated Clotting Time (test code 454 s = POC Activated Clotting Time) [place] 323381-04-09 14:37:00 Test Item Value Reference Range Interpretation Comments POC Activated Clotting Time (test code 454 s = POC Activated Clotting Time) [place] 323381-04-09 14:37:00 Test Item Value Reference Range Interpretation Comments POC Activated Clotting Time (test code 454 s = POC Activated Clotting Time) [facility] [id number] 14:37:00 Test Item Value Reference Range Interpretation Comments POC Activated Clotting Time (test code 454 s = POC Activated Clotting Time) [facility] WorthVjpoxdjRNYRQVWYDM4254-53-24 14:37:00 Test Item Value Reference Range Interpretation Comments POC Activated Clotting Time (test code 454 s = POC Activated Clotting Time) [facility] WorthXqaiggtUPZAJIJGXH2361-62-56 14:13:00 Test Item Value Reference Range Interpretation Comments POC Activated Clotting Time (test code 354 s = POC Activated Clotting Time) [facility] WorthYikhwsvKODECILQPT2022-94-43 14:13:00 Test Item Value Reference Range Interpretation Comments POC Activated Clotting Time (test code 354 s = POC Activated Clotting Time) [facility] WorthCgfkwkfRULCRGZSDB7832-39-56 14:13:00 Test Item Value Reference Range Interpretation Comments POC Activated Clotting Time (test code 354 s = POC Activated Clotting Time) [facility] WorthZycvnspZUCTARLFZE9141-65-09 14:13:00 Test Item Value Reference Range Interpretation Comments POC Activated Clotting Time (test code 354 s = POC Activated Clotting Time) [facility] WorthZylwlyaCROOLIZAUL8030-74-41 14:13:00 Test Item Value Reference Range Interpretation Comments POC Activated Clotting Time (test code 354 s = POC Activated Clotting Time) [facility] WorthYqgwdstXXVEWVIIQT9081-15-57 14:13:00 Test Item Value Reference Range Interpretation Comments POC Activated Clotting Time (test code 354 s = POC Activated Clotting Time) [facility] WorthZfrqayyDJEYXLEMXK5464-12-75 14:13:00 Test Item Value Reference Range Interpretation Comments POC Activated Clotting Time (test code 354 s = POC Activated Clotting Time) [facility] [id number] 10:37:00Negative (08/29/20 5:37 AM) [facility] [id number] 10:37:13799Lhmwmagz HermannCHEM PANEL 2020-08-29 10:37:0028[facility] HermannCHEM FULPP3120-07-20 10:37:001.01[facility] HermannCHEM [id number] 10:37:37337Dxtooyvi HermannCHEM HDYDJ9342-14-44 10:37:003.8[facility] HermannCHEM [id number] 10:37:92471Evbqeqrn HermannCHEM CPDVX0633-58-07 10:37:0028[facility] HermannCHEM BZIOQ8185-15-53 10:37:009.8 [facility] HermannCHEM ROHWW1814-37-11 10:37:0011.8[facility] HermannCHEM PANEL 2020-08-29 10:37:0059Memorial HermannCHEM WOXUU0017-81-13 10:37:002.9Memorial AlecnbzKPVZMZBNUJ8400-33-16 10:37:006.8Memorial AkxvevqMLYGMWQHVZ5033-15-73 10:37:004.47Memorial CtrwbqiXFZZOCJNCF3433-47-29 10:37:0010.6[facility]orial Marty ZLWPCLMNTU8692-32-68 10:37:0034.0Memorial GgbqpyjYEFFVLRBTC8868-07-85 10:37:00 76.1Memorial QtngrfoVGIIKRWSWB6458-80-68 10:37:00 Test Item Value Reference Range Interpretation Comments MCH (test code = MCH) 23.8 pg 27.0-31.0 [place] TbxoipjHFBFEUQLWI7434-26-68 10:37:0031.3[facility] HermannHEMATOLOGY 2020-08-29 10:37:0018.2Memorial EberiycPDAWSSNQSI7843-42-67 10:37:39400Sgancdqw ZwowwliQEAMOOHYMM9147-43-04 10:37:007.5Memorial NdvoljtAPSNEWAMMZ6379-74-37 10:37:00 Test Item Value Reference Range Interpretation Comments PT (test code = PT) 12.8 s 12.0-14.7 [place] RviyyfoIJIFJFVRIT1046-80-32 10:37:00 Test Item Value Reference Range Interpretation Comments INR (test code = INR) 0.97 1 0.85-1.17 Memorial WowoarxTROJGAXHKY3522-13-26 10:37:00 Test Item Value Reference Range Interpretation Comments PTT (test code = PTT) 25.0 s 22.9-35.8 [place] TkyytqwHMXVEQEGWE3640-10-18 10:37:0070.5[facility]annHEMATOLOGY 2020-08-29 10:37:0018.8[facility] UnkapksJWFETFULZA7871-94-84 10:37:009.5[facility] YyljxvnOJTXUCOFQL5008-78-82 10:37:000.9[facility] AshtywrUFJNAKQZHP7394-36-35 10:37:000.3[facility] RlxcysyDWMZCIBNZC9542-67-46 10:37:004.8[facility] HGUKQDIRDQ6991-06-25 10:37:001.3[facility] FpqieyzLIHPLZFPSB1507-74-85 10:37:000.6 [facility] UkxgwgpWMVWREHOQT1446-39-51 10:37:000.1[facility]annHEMATOLOGY 2020-08-29 10:37:001+ *ABN*(08/29/20 5:37 AM)[facility] BrzhgpgEFQBPZMZED3758-30-90 10:37:00Not Detected (08/29/20 5:37 AM)[facility]BL[facility] B[facility] RESULTS 2020-08-29 10:37:00Negative (08/29/20 5:37 AM)[facility]annCHEM SCDIR2183-46-11 10:37:64818Unaooyaq HermannCHEM QUMVZ4895-78-08 10:37:0028[facility]annCHEM ZKBOB0209-27-57 10:37:001.01[facility]annCHEM QDEVE2740-53-58 10:37:60615 [facility]annCHEM NLHRR6798-20-69 10:37:003.8[facility] HermannCHEM PANEL 2020-08-29 10:37:20440Avxguoif HermannCHEM OLXVQ8514-12-40 10:37:0028[facility]annCHEM KIXLW1672-36-56 10:37:009.8[facility] HermannCHEM ZNFUO0702-15-67 10:37:0011.8[facility] HermannCHEM SBNEV0569-68-78 10:37:0059[facility]annCHEM ZWLCJ3110-20-68 10:37:002.9[facility] JmmrqtdHVIWTXYBCV1585-06-22 10:37:006.8 [facility] BtpkyuaDMZVRXSZMP4886-99-72 10:37:004.47[facility]HEMATOLOGY 2020-08-29 10:37:0010.6[facility] PicbdyrMCXTXQLIMA2938-02-31 10:37:0034.0[facility] FjsmdxeTAAECEJTAQ0858-67-25 10:37:0076.1[facility] JvfdqmrWTTBPYKURD9614-36-27 10:37:00 Test Item Value Reference Range Interpretation Comments MCH (test code = MCH) 23.8 pg 27.0-31.0 [facility] XcxqmztCYUTRGRJOU8865-77-05 10:37:0031.3[facility]annHEMATOLOGY 2020-08-29 10:37:0018.2[facility] VeexbpmXXKXHEVQAO0869-77-13 10:37:62791Jugjutzh XhwqzyoAGUKNBPSQT8701-76-39 10:37:007.5[facility] JnojfxiPKPLZKMXMJ3574-30-99 10:37:00 Test Item Value Reference Range Interpretation Comments PT (test code = PT) 12.8 s 12.0-14.7 [facility] XsivpxbXUYVXVQKAR6067-02-72 10:37:00 Test Item Value Reference Range Interpretation Comments INR (test code = INR) 0.97 1 0.85-1.17 [facility] MqibxknSOXMCRSBVS3172-41-67 10:37:00 Test Item Value Reference Range Interpretation Comments PTT (test code = PTT) 25.0 s 22.9-35.8 [facility] MuiieugJFNOUHUKTR0712-11-22 10:37:0070.5[facility]annHEMATOLOGY 2020-08-29 10:37:0018.8[facility] QdfkfdbCQNQOKNXPP8499-07-43 10:37:009.5[facility] WvlqeihQNYDUDOFGM1491-25-49 10:37:000.9[facility] CjeyfqgZLBCYUGLBN4290-90-63 10:37:000.3[facility] FwuxwqdFVKQXKIPQP3152-34-19 10:37:004.8[facility] UWWGBAXEDB7217-88-99 10:37:001.3[facility] GcvsxboBNIDSPWOMD3677-49-73 10:37:000.6 [facility] QrmkrzrPBNMSIUYTK6029-59-36 10:37:000.1[facility]annHEMATOLOGY 2020-08-29 10:37:001+ *ABN*(08/29/20 5:37 AM)[facility] OccgwxzNSNFQLHXQU8752-52-00 10:37:00Not Detected (08/29/20 5:37 AM)[facility]annBL[facility] BANK RESULTS 2020-08-29 10:37:00Negative (08/29/20 5:37 AM)[facility]annCHEM DRJKE2450-72-77 10:37:43287Nmokswpy HermannCHEM WYGNZ4672-34-77 10:37:0028[facility]annCHEM HATIS5855-52-72 10:37:001.01[facility]annCHEM RJSTS7555-88-34 10:37:01209 [facility]CHE[facility] XXKPL9240-23-38 10:37:003.8[facility]annCHEM PANEL 2020-08-29 10:37:67315Lzmwgdws HermannCHEM KAARH7421-12-19 10:37:0028[facility]annCHEM ASWEX1481-36-81 10:37:009.8[facility]annCHEM BCPPK7871-96-33 10:37:0011.8[facility]annCHEM NVDRQ0450-61-05 10:37:0059[facility]annCHEM WAJPJ4471-64-78 10:37:002.9[facility] PjqstjfXSGPTSFTXT3395-22-19 10:37:006.8 [facility] RzhircyMXUOWCUPYD4674-25-31 10:37:004.47[facility]annHEMATOLOGY 2020-08-29 10:37:0010.6[facility] ZgrzcppJXLIXXDLAY7176-23-30 10:37:0034.0[facility] VwcbmlhIHOTKIYAKC0034-83-23 10:37:0076.1[facility] JbdwsvmZCJGIWWBAD9472-48-63 10:37:00 Test Item Value Reference Range Interpretation Comments MCH (test code = MCH) 23.8 pg 27.0-31.0 [facility] ElzxvrbSNKRFOXSZY8671-78-39 10:37:0031.3[facility]annHEMATOLOGY 2020-08-29 10:37:0018.2[facility] FkflyhqNDUEEIDYZC0172-45-17 10:37:51382Vkinathr DnydibbWQETMVLPNR1567-43-79 10:37:007.5[facility] WmoxlhzCFWVGKFKUN8455-11-62 10:37:00 Test Item Value Reference Range Interpretation Comments PT (test code = PT) 12.8 s 12.0-14.7 [facility] IlnbgiwCZIMHNGIDX3758-81-18 10:37:00 Test Item Value Reference Range Interpretation Comments INR (test code = INR) 0.97 1 0.85-1.17 [facility] KdcxdqtHVXEKCMJWG4663-98-39 10:37:00 Test Item Value Reference Range Interpretation Comments PTT (test code = PTT) 25.0 s 22.9-35.8 [facility] DmshlizSAOXWHLBOW6731-03-41 10:37:0070.5[facility]annHEMATOLOGY 2020-08-29 10:37:0018.8[facility] KfzphboBYVKKNNWMY7761-67-40 10:37:009.5[facility] OyemlmxQCIIXGGLGO0761-36-48 10:37:000.9[facility] LceghqqVIONNTFHFY6704-44-82 10:37:000.3[facility] OsvubuzQODAVHNGNG8514-08-09 10:37:004.8[facility] VJMHTEVMXB9742-48-49 10:37:001.3[facility] NjnxrzmRXXOSALSME9510-54-56 10:37:000.6 [facility] KfnjgekVWULFISYFW2355-69-17 10:37:000.1[facility]annHEMATOLOGY 2020-08-29 10:37:001+ *ABN*(08/29/20 5:37 AM)[facility] TpkgmmbPRFHZRXBTQ6724-37-57 10:37:00Not Detected (08/29/20 5:37 AM)[facility]annBL[facility] BANK RESULTS 2020-08-29 10:37:00Negative (08/29/20 5:37 AM)[facility]annCHEM WTNXK6685-98-27 10:37:21660Mlnfihmj HermannCHEM YTICQ7505-48-35 10:37:0028[facility]annCHEM FHOXK3484-54-29 10:37:001.01[facility]annCHEM OFESU1485-43-71 10:37:68615 [facility]annCHE[facility] NOORP9724-09-09 10:37:003.8[facility]annCHEM PANEL 2020-08-29 10:37:45313Eoccfzlq HermannCHEM IABEC0404-76-35 10:37:0028[facility]annCHEM XWNGJ2080-39-89 10:37:009.8[facility]annCHEM UGMNW1319-04-92 10:37:0011.8[facility]annCHEM RBHAZ4463-38-19 10:37:0059[facility]annCHEM WGRIQ5333-82-92 10:37:002.9[facility] IswbeceAWVZJXOJDS0739-36-85 10:37:006.8 [facility] PbydbqzQMTMOFIRGE6198-12-44 10:37:004.47[facility]annHEMATOLOGY 2020-08-29 10:37:0010.6[facility] GwkfitoOKKGMOWJEW0197-14-25 10:37:0034.0[facility] EoknddzNJTYOHZEDW7215-11-79 10:37:0076.1[facility] MwkgyvzDZNKCOXTWA9433-98-64 10:37:00 Test Item Value Reference Range Interpretation Comments MCH (test code = MCH) 23.8 pg 27.0-31.0 [place] KxjqonzTFOKNDXCOL6881-87-91 10:37:0031.3[facility]annHEMATOLOGY 2020-08-29 10:37:0018.2[facility] PtudmwpRRIXXTLUVS8329-04-28 10:37:52591Dkenopcu UhldilwHYNBHPZJWM1043-60-48 10:37:007.5[facility] DvuegskFYYZESNRMZ5107-32-65 10:37:00 Test Item Value Reference Range Interpretation Comments PT (test code = PT) 12.8 s 12.0-14.7 [place] HlnqzkrEQFQWXQXUD1801-62-49 10:37:00 Test Item Value Reference Range Interpretation Comments INR (test code = INR) 0.97 1 0.85-1.17 [place] VtjxaxzTZDEZGCTUW6416-27-94 10:37:00 Test Item Value Reference Range Interpretation Comments PTT (test code = PTT) 25.0 s 22.9-35.8 [facility] NodtfttDTXUYCFPRH8081-31-48 10:37:0070.5[facility]annHEMATOLOGY 2020-08-29 10:37:0018.8[facility] QbhovvdODUKHJIRJG0525-50-39 10:37:009.5[facility] UtsgijnVWLNFSUMCP1141-61-70 10:37:000.9[facility] GdkfjuvPOGLYWKKEN9614-11-62 10:37:000.3[facility] MbwtfybTGTGRXAGZJ8226-93-75 10:37:004.8[facility] CFTTFENPLH7216-49-60 10:37:001.3[facility] ZwqyrpoECRJXXDGNQ5316-62-39 10:37:000.6 [facility] IcgsxfhRBRBCFRIGV3561-97-28 10:37:000.1[facility]annHEMATOLOGY 2020-08-29 10:37:001+ *ABN*(08/29/20 5:37 AM)[facility] DcnoudfTGQYRWLVDE9407-35-39 10:37:00Not Detected (08/29/20 5:37 AM)[facility]annBLOOD BANK RESULTS 2020-08-29 10:37:00Negative (08/29/20 5:37 AM)[facility]annCHEM UUVWS8296-73-09 10:37:54783Eapvbcjl HermannCHEM VTEEM8654-16-97 10:37:0028[facility]annCHEM ZYOAP1988-08-76 10:37:001.01[facility]annCHEM SVFYN4628-22-45 10:37:44095 [facility]annCHE[facility] OKXHP3918-00-09 10:37:003.8[facility]annCHEM PANEL 2020-08-29 10:37:43130Opljgrpt HermannCHEM YMXPR0427-33-06 10:37:0028[facility]annCHEM JSOHZ7070-58-44 10:37:009.8[facility]annCHEM ULWJI9618-22-16 10:37:0011.8[facility]annCHEM LMYFE6217-01-14 10:37:0059[facility]annCHEM OYXAF0516-99-27 10:37:002.9[facility] UxoxvudESXPATQAMX0276-74-28 10:37:006.8 [facility] XnifgaoAKCHWZZEDB5281-36-68 10:37:004.47[facility]annHEMATOLOGY 2020-08-29 10:37:0010.6[facility] RvdrtiwLIAROUINKA3730-12-67 10:37:0034.0[facility] XsmeaivONRVLJFVJD4105-16-05 10:37:0076.1[facility] SotpmnjVZWAWHWMQR1171-70-91 10:37:00 Test Item Value Reference Range Interpretation Comments MCH (test code = MCH) 23.8 pg 27.0-31.0 [place] ZeikkmgWCESKSSZOK0150-22-07 10:37:0031.3[facility]annHEMATOLOGY 2020-08-29 10:37:0018.2[facility] OtvbirpMXFPLVBOZD4103-17-65 10:37:24178Hkpybchj GhddlfhVMHKLLBVCY9041-00-90 10:37:007.5[facility] BzvfsumABQAPOPWLT0155-31-62 10:37:00 Test Item Value Reference Range Interpretation Comments PT (test code = PT) 12.8 s 12.0-14.7 [place] UdjlzpaWLCFOFRACB9274-58-65 10:37:00 Test Item Value Reference Range Interpretation Comments INR (test code = INR) 0.97 1 0.85-1.17 [facility] EcjsacwRISSBMZYFK7273-69-42 10:37:00 Test Item Value Reference Range Interpretation Comments PTT (test code = PTT) 25.0 s 22.9-35.8 [place] VdvpgsdHXMDAVOIGQ9902-68-31 10:37:0070.5[facility]annHEMATOLOGY 2020-08-29 10:37:0018.8[facility] AxfzqolYQVBGDLNOO6393-49-68 10:37:009.5[facility] DkxlixiAZQRXWQOXT3983-31-84 10:37:000.9[facility] OuacmeaGZARDEIBOZ6202-86-01 10:37:000.3[facility] JhlizjxOHNGLTAENK8922-67-51 10:37:004.8[facility] TVDLDFZJRF3957-68-85 10:37:001.3[facility] SrakdqtKDCDCFOUET5729-62-05 10:37:000.6 [facility] IelmaqvHRPVVVHMBY6139-66-89 10:37:000.1[facility]annHEMATOLOGY 2020-08-29 10:37:001+ *ABN*(08/29/20 5:37 AM)[facility] JqfplfpWASQJGUZZD7082-10-19 10:37:00Not Detected (08/29/20 5:37 AM)[facility]annBLOOD BANK RESULTS 2020-08-29 10:37:00Negative (08/29/20 5:37 AM)[facility]annCHEM UGSKV6767-56-92 10:37:53092Kswzupnb HermannCHEM VJOIE9150-01-40 10:37:0028[facility]annCHEM SZJPK5269-63-07 10:37:001.01[facility]annCHEM WMSCS2989-46-51 10:37:25821 [facility]annCHE[facility] FTCWX6116-40-42 10:37:003.8[facility]annCHEM PANEL 2020-08-29 10:37:31374Prpbfmjt HermannCHEM YQSYG9453-29-77 10:37:0028[facility]annCHEM RYNUP4025-85-68 10:37:009.8[facility]annCHEM VJUHD7153-60-09 10:37:0011.8[facility]annCHEM DVWJL6484-01-89 10:37:0059[facility]annCHEM PKXLA4048-09-97 10:37:002.9[facility] QtddwtaUVZQJPRMBV6054-90-35 10:37:006.8 [facility] LqcclcqHDLNYKRLDW0605-41-25 10:37:004.47[facility]annHEMATOLOGY 2020-08-29 10:37:0010.6[facility] BrtegnpHRBEZUEDPZ6074-86-95 10:37:0034.0[facility] AyoaydaKPAJURWOFB8258-81-76 10:37:0076.1[facility] AtbtfsuPKGKINGXFY4767-44-94 10:37:00 Test Item Value Reference Range Interpretation Comments MCH (test code = MCH) 23.8 pg 27.0-31.0 [facility] JbqhjtrPEAJNGYZAY0791-57-82 10:37:0031.3[facility]annHEMATOLOGY 2020-08-29 10:37:0018.2[facility] TgncecfILFRYOAUOX1329-96-47 10:37:81854Fglehemu HgggwccCLZICKVTHR6658-46-92 10:37:007.5[facility] HyhgksoQRWDLZJQQD2731-70-25 10:37:00 Test Item Value Reference Range Interpretation Comments PT (test code = PT) 12.8 s 12.0-14.7 [facility] SiipvtjJVDYGAUDYZ9146-10-18 10:37:00 Test Item Value Reference Range Interpretation Comments INR (test code = INR) 0.97 1 0.85-1.17 [facility] YbfpyoaWIWMTYDAFT6251-47-39 10:37:00 Test Item Value Reference Range Interpretation Comments PTT (test code = PTT) 25.0 s 22.9-35.8 [facility] YpfveczPFTRRZSBBN4366-71-35 10:37:0070.5[facility]annHEMATOLOGY 2020-08-29 10:37:0018.8[facility] QudjkilAMIIIMSKHP3668-24-34 10:37:009.5[facility] VchhsquLOEOCZRAXS0492-52-54 10:37:000.9[facility] SkumvxwOGATOMYUJE9726-20-30 10:37:000.3[facility] XrfglmoFSCZNKZBQP1293-75-84 10:37:004.8[facility] FOZKJMDNDR3458-70-69 10:37:001.3[facility] TkuewzuLDUYMUAUNE0872-71-10 10:37:000.6 [facility] XvytybnMAEFHZIDTH3525-36-55 10:37:000.1[facility]annHEMATOLOGY 2020-08-29 10:37:001+ *ABN*(08/29/20 5:37 AM)[facility] FihvzikGXQRGEXTZH6297-70-44 10:37:00Not Detected (08/29/20 5:37 AM)[facility]annBLOOD BANK RESULTS 2020-08-29 10:37:00Negative (08/29/20 5:37 AM)[facility]annCHEM SMXTG3057-93-56 10:37:67189Tfhtjdyz HermannCHEM KEYUO5908-45-48 10:37:0028[facility]annCHEM GYPXE3642-68-21 10:37:001.01[facility]annCHEM NZHMS8493-64-06 10:37:66114 [facility]annCHEM KHZSW2404-70-65 10:37:003.8[facility]annCHEM PANEL 2020-08-29 10:37:04569Svfjukte HermannCHEM LHLVP4558-21-56 10:37:0028[facility]annCHEM QKPJK8680-57-05 10:37:009.8[facility]annCHEM JGVHR5826-09-91 10:37:0011.8[facility]annCHEM WERWD3990-02-62 10:37:0059[facility]annCHEM FESTB4690-52-92 10:37:002.9[facility] AvfktkrBZLKITKOIN9812-45-67 10:37:006.8 [facility] RgkbigsULLEEGNPWX5672-60-15 10:37:004.47[facility]annHEMATOLOGY 2020-08-29 10:37:0010.6[facility] JdipeuwJDHNNPDVYQ8244-15-77 10:37:0034.0[facility] SickscoIGQOCUNSWR3620-60-28 10:37:0076.1[facility] HtrwvjmHDCDKSCXHX0057-77-84 10:37:00 Test Item Value Reference Range Interpretation Comments MCH (test code = MCH) 23.8 pg 27.0-31.0 [place] KddupeqHIABXEYPEM6309-78-55 10:37:0031.3[facility]annHEMATOLOGY 2020-08-29 10:37:0018.2[facility] WiqkuscDTOGXDMZGM9953-19-04 10:37:53916Rbirayju WtwmdkkLOKMHDJWSH0206-58-33 10:37:007.5[facility] QmlgopvBGTJULVCED8159-39-86 10:37:00 Test Item Value Reference Range Interpretation Comments PT (test code = PT) 12.8 s 12.0-14.7 [facility]OfthozmBITAFNPZCJ0955-53-89 10:37:00 Test Item Value Reference Range Interpretation Comments INR (test code = INR) 0.97 1 0.85-1.17 [facility] HospitalWbbvpsxCZIQUYIOCN5489-43-49 10:37:00 Test Item Value Reference Range Interpretation Comments PTT (test code = PTT) 25.0 s 22.9-35.8 [place] XbbjtdgMIPFVATYWW2685-82-51 10:37:0070.5[facility]annHEMATOLOGY 2020-08-29 10:37:0018.8[facility] PthcdrfMWTXOLOKSR7418-29-20 10:37:009.5[facility] ZukynvaKZVPSDGCUX5700-59-43 10:37:000.9[facility] HkcutwnQEHNYYBSQK3723-54-23 10:37:000.3[facility] NrcpoieNRTRRSBFGG9856-74-29 10:37:004.8[facility] UWCPFGLYNM1043-49-76 10:37:001.3[facility] FllrtvbEPDMFRZXXR9746-94-59 10:37:000.6 [facility] FytftxuHVMZWAOSEI2296-03-70 10:37:000.1[facility]annHEMATOLOGY 2020-08-29 10:37:001+ *ABN*(08/29/20 5:37 AM)[facility] QbbvpbcBJCJPCOCYH3302-00-00 10:37:00Not Detected (08/29/20 5:37 AM)[facility] HospitalarielNOR[facility]OL[facility] HOSPITALDIA, GC, TV,PCR, IN JKGRP4714-09-87 15:38:00 Test Item Value Reference Range Interpretation Comments FT (test code = CHTR) Not detected (qualifier Not Detected N value) FT (test code = Not detected (qualifier Not Detected N NGONO) value) FT (test code = TRVG) Not detected (qualifier Not Detected N value) URINALYSIS WITH BWMRGHBZWPG8747-51-18 10:57:00 Test Item Value Reference Range Interpretation Comments Color (test code = UCOLR) Dk. Yellow Clarity (test code = UCLAR) Hazy Glucose (test code = UGLUC) NEGATIVE NEGATIVE N Bilirubin (test code = UBILI) NEGATIVE NEGATIVE N Ketones (test code = UKET) NEGATIVE NEGATIVE N Specific [place] (test code = 1.025 1.005-1.030 A USPGR) [...]
[2021-09-20 20:30] LABS: Arterial Blood Carboxyhemoglob 1.8 % (0-1.5); Blood Gas Oxyhemoglobin 95.3 % (94-97); Blood O2 Saturation 98.2 % (92-98.5)
--- NOTE | 2021-09-20 20:45 | RAD REPORT ---
EXAM DESCRIPTION: RAD - Chest Single View - 09/20/2021 8:02 pm CLINICAL HISTORY: Cough Chest pain. COMPARISON: Chest Single View dated 09/11/2021; Chest Single View dated 08/31/2021; Chest Single View dated 08/28/2021; Chest Single View dated 08/21/2021 FINDINGS: Portable technique limits examination quality. The lungs are grossly clear. The heart is mildly enlarged in size. No displaced fractures.Bilateral s houlder arthroplasties. IMPRESSION: No acute intrathoracic process suspected.
[2021-09-20] MEDS ORDERED: METHYLPREDNISOLONE 125 MG INJ ONE (21:01)
[2021-09-20] MEDS ORDERED: IPRATROPIUM BROM 0.5MG/2.5ML ONE (21:02)
[2021-09-20] MEDS ORDERED: LEVALBUTEROL 1.25 MG/3 ML NEB ONE (21:02)
[2021-09-20 21:22] LABS: Absolute Lymphocytes (CBC) 1.2 K/uL (0.7-4.9); Hematocrit 31.3 % (36.0-45.0); Lymphocytes % 17.2 % (15.3-44.8); MPV 7.3 fL (7.6-11.3); RBC Red Blood Cell Count 4.27 M/uL (3.86-4.86)
[2021-09-20 21:34] LABS: Protime INR 0.99
[2021-09-20 21:44] LABS: Albumin 3.1 g/dL (3.4-5.0); Bilirubin Direct 0.1 mg/dL (0-0.2); Bilirubin Total 0.4 mg/dL (0.2-1.0); Magnesium 2.2 mg/dL (1.8-2.4); Potassium 3.3 mmol/L (3.5-5.1); Protein, Total 6.9 g/dL (6.4-8.2); Troponin High Sensitivity 16.8 pg/mL (<58.9)
--- NOTE | 2021-09-20 22:41 | EDPHYS ---
Physician Documentation [facility] Name: Fawn Fleming Age: 66 yrs Sex: Female : 1955 Arrival Date: 09/20/2021 Time: 19:03 Bed 8 Private MD: ED Physician Justus Kolb HPI: 09/20 19:50 This 66 yrs old Female presents to ER via EMS with complaints of dyspnea. thomas Historical: - Allergies: 19:09 Bactrim DS; ab2 19:09 butorphanol tartrate; ab2 19:09 Fentanyl; ab2 19:09 Reglan; ab2 19:09 Stadol; ab2 19:09 sulfamethoxazole (bulk); ab2 19:09 TRIMETHOPRIM; ab2 - PMHx: 19:09 Anxiety; Hepatitis; Panic Attacks; HIV; Migraines; Hypertension; esophageal varices; ab2 Chronic pain; Bipolar disorder; Atrial Fib; COPD; - PSHx: 19:09 Appendectomy; Bilateral shoulder repair; Cholecystectomy; hernia repair; R wrist SX; ab2 - Immunization history:: Adult Immunizations up to date. - Social history:: Smoking status: Patient denies any tobacco usage or history of. ROS: 19:51 Constitutional: Negative for fever, chills, and weight loss, Eyes: Negative for injury, thomas pain, redness, and discharge, ENT: Negative for injury, pain, and discharge, Neck: Negative for injury, pain, and swelling, Cardiovascular: Negative for chest pain, palpitations, and edema, Abdomen/GI: Negative for abdominal pain, nausea, vomiting, diarrhea, and constipation, Back: Negative for injury and pain, : Negative for injury, bleeding, discharge, and swelling, MS/Extremity: Negative for injury and deformity, Skin: Negative for injury, rash, and discoloration, Neuro: Negative for headache, weakness, numbness, tingling, and seizure, Psych: Negative for depression, anxiety, suicide ideation, homicidal ideation, and hallucinations, Allergy/Immunology: Negative for hives, rash, and allergies, Endocrine: Negative for neck swelling, polydipsia, polyuria, polyphagia, and marked weight changes, Hematologic/Lymphatic: Negative for swollen nodes, abnormal bleeding, and unusual bruising. 19:51 Respiratory: Positive for cough, shortness of breath, on exertion. Exam: 19:51 Constitutional: This is a well developed, well nourished patient who is awake, alert, thomas and in no acute distress. Head/Face: Normocephalic, atraumatic. Eyes: Pupils equal round and reactive to light, extra-ocular motions intact. Lids and lashes normal. Conjunctiva and sclera are non-icteric and not injected. Cornea within normal limits. Periorbital areas with no swelling, redness, or edema. ENT: Nares patent. No nasal discharge, no septal abnormalities noted. Tympanic membranes are normal and external auditory canals are clear. Oropharynx with no redness, swelling, or masses, exudates, or evidence of obstruction, uvula midline. Mucous membranes moist. Neck: Trachea midline, no thyromegaly or masses palpated, and no cervical lymphadenopathy. Supple, full range of motion without nuchal rigidity, or vertebral point tenderness. No Meningismus. Chest/axilla: Normal chest wall appearance and motion. Nontender with no deformity. No lesions are appreciated. Cardiovascular: Regular rate and rhythm with a normal S1 and S2. No gallops, murmurs, or rubs. Normal PMI, no JVD. No pulse deficits. Respiratory: Lungs have equal breath sounds bilaterally, clear to auscultation and percussion. No rales, rhonchi or wheezes noted. No increased work of breathing, no retractions or nasal flaring. Abdomen/GI: Soft, non-tender, with normal bowel sounds. No distension or tympany. No guarding or rebound. No evidence of tenderness throughout. Back: No spinal tenderness. No costovertebral tenderness. Full range of motion. Skin: Warm, dry with normal turgor. Normal color with no rashes, no lesions, and no evidence of cellulitis. MS/ Extremity: Pulses equal, no cyanosis. Neurovascular intact. Full, normal range of motion. Neuro: Awake and alert, GCS 15, oriented to person, place, time, and situation. Cranial nerves II-XII grossly intact. Motor strength 5/5 in all extremities. Sensory grossly intact. Cerebellar exam normal. Normal gait. Psych: Awake, alert, with orientation to person, place and time. Behavior, mood, and affect are within normal limits. 19:51 Musculoskeletal/extremity: DVT Exam: No signs of deep vein thrombosis. no pain, no swelling, no tenderness, negative Homans' sign noted on exam, no appreciated bluish discoloration, no erythema, no increased warmth. 23:13 ECG was reviewed by the Attending Physician. [facility] Vital Signs: 19:07 BP 191 / 93; Pulse 65; Resp 19; Temp 97.6; Pulse Ox 98% on R/A; Weight 99.79 kg; Height ab2 5 ft. 4 in. (162.56 cm); Pain 6/10; 20:00 BP 168 / 85; Pulse 63; Resp 18 S; Pulse Ox 99% on 3 lpm NC; as6 21:30 BP 167 / 97; Pulse 59; Resp 20 S; Pulse Ox 100% on 3 lpm NC; as6 23:00 BP 178 / 101; Pulse 64; Resp 18 S; Pulse Ox 100% on 3 lpm NC; as6 05 00:00 BP 189 / 86; Pulse 66; Resp 19 S; Pulse Ox 100% on 3 lpm NC; as6 09/20 19:07 Body Mass Index 37.76 (99.79 kg, 162.56 cm) ab2 MDM: 09/20 19:[address] [facility] 19:52 Differential diagnosis: Anxiety Reaction asthma, Bronchitis CHF exacerbation, Chronic thomas Obstructive Pulmonary Disease Myocardial Infarction reactive airway disease. Antibiotic administration: The patient is discharged and will get outpatient antibiotics, Zithromax. The patient's Wells Deep Vein Thrombosis Score was calculated as follows: Total Score: 0-2 Pts- Low Risk. The patient's pulmonary embolism risk score was calculated as follows: Total Score: 0-2 points. This patient was found to be at low risk for a pulmonary embolism by using the Well's assessment criteria. Immunization status: Pneumococcal vaccine: Influenza vaccine: Data reviewed: vital signs, nurses notes, lab test result(s), EKG, radiologic studies, plain films. 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 Test interpretation: by ED physician or midlevel provider: ECG, plain radiologic studies. Counseling: I had a detailed discussion with the patient and/or guardian regarding: the historical points, exam findings, and any diagnostic results supporting the discharge/admit diagnosis, lab results, radiology results. 09/20 19:47 Order name: Basic Metabolic Panel; Complete Time: 22:34 [facility] 09/20 19:47 Order name: CBC with Diff; Complete Time: 22:34 09/20 19:47 Order name: LFT's; Complete Time: 22:34 09/20 19:47 Order name: Magnesium; Complete Time: 22:34 09/20 19:47 Order name: NT PRO-BNP; Complete Time: 22:34 09/20 19:47 Order name: PT-INR; Complete Time: 22:34 09/20 19:47 Order name: Troponin HS; Complete Time: 22:34 09/20 19:47 Order name: XRAY Chest (1 view); Complete Time: 22:34 09/20 19:47 Order name: ABG; Complete Time: 22:34 09/20 19:47 Order name: EKG; Complete Time: 19:48 09/20 19:47 Order name: Cardiac monitoring; Complete Time: 23:34 09/20 19:47 Order name: EKG - Nurse/Tech; Complete Time: 23:34 09/20 19:47 Order name: IV Saline Lock; Complete Time: 22:01 09/20 19:47 Order name: Labs collected and sent; Complete Time: 21:30 09/20 19:47 Order name: O2 Per Protocol; Complete Time: 21:30 09/20 19:47 Order name: O2 Sat Monitoring; Complete Time: 21:30 [facility] EC:13 Rate is 69 beats/min. Rhythm is irregularly irregular. QRS [place] is Normal. MO interval thomas is normal. QRS interval is normal. QT interval is normal. No Q waves. T waves are Normal. No ST changes noted. Clinical impression: Abnormal EKG without significant change, Atrial Fibrillation, and No evidence of ischemia. Interpreted by me. Reviewed by me. Administered Medications: 21:33 Drug: AtroVENT (ipratropium) Aerosol 0.5 mg Route: Inhalation; 09/21 00:10 Follow up: Response: No adverse reaction 09/20 21:34 Drug: Xopenex (levalbuterol) 3.75 mg Route: Inhalation; 09/21 00:10 Follow up: Response: No adverse reaction 09/20 22:01 Drug: SOLU-Medrol (methylPrednisoLONE) 125 mg Route: IVP; Site: Other; 09/21 00:10 Follow up: Response: No adverse reaction 09/20 23:52 Drug: morphine 4 mg Route: IVP; Site: Other; 09/21 00:11 Follow up: Response: No adverse reaction; RASS: Alert and Calm (0) 09/20 23:52 Drug: Zofran (Ondansetron) 4 mg Route: IVP; Site: Other; 09/21 00:11 Follow up: Response: No adverse reaction 09/20 23:52 Drug: Potassium Effervescent Tablet 50 mEq Route: PO; 09/21 00:11 Follow up: Response: No adverse reaction 09/20 23:53 Drug: Lasix (furosemide) 40 mg Route: IVP; Site: Other; 09/21 00:10 Follow up: Response: No adverse reaction Disposition Summary: 09/20/21 22:40 Discharge Ordered Location: Home thomas Problem: new thomas Symptoms: have improved thomas Condition: Stable thomas Diagnosis - COPD/ Chronic obstructive pulmonary disease with (acute) exacerbation thomas - Cardiomegaly thomas - Chronic atrial fibrillation thomas Followup: thomas - With: Private Physician - When: 1 - 2 days - Reason: Recheck today's complaints, Continuance of care, Re-evaluation by your physician Followup: thomas - With: Moody Sosa MD - When: 2 - 3 days - Reason: Recheck today's complaints, Re-evaluation by your physician Followup: thomas - With: Per Crane MD - When: 2 - 3 days - Reason: Recheck today's complaints, Re-evaluation by your physician Discharge Instructions: - Discharge Summary Sheet thomas - Atrial Fibrillation thomas - Chronic Bronchitis, Adult thomas - Chronic Obstructive Pulmonary Disease thomas - Chronic Obstructive Pulmonary Disease Exacerbation thomas - Cough, Adult, [id number] thomas - Cough, Adult thomas - Living With Heart Failure thomas - Heart Failure Medicines thomas - Heart Failure Eating Plan thomas Forms: - Medication Reconciliation Form thomas - Thank You Letter thomas - Antibiotic Education thomas - Prescription Opioid Use thomas Prescriptions: - Lasix 20 mg Oral Tablet - take 1 tablet by ORAL route once daily; 20 tablet; Refills: 0, Product thomas Selection Permitted - Potassium Chloride 20 meq Oral Packet - take 1 packet by ORAL route once daily 1 packet in 6 (six) ounces of water or thomas juice; Take after meal; 30 packet; Refills: 0, Product Selection Permitted - Albuterol Sulfate 2.5 mg /3 mL (0.083 %) Inhalation Solution for Nebulization - inhale 1 unit by NEBULIZATION route every 8 hours As needed; 1 box; Refills: 0, [facility] Product Selection Permitted - Prednisone 20 mg Oral Tablet - take 2 tablets by ORAL route once daily for 5 days; 10 tablet; Refills: 0, [facility] Product Selection Permitted Signatures: Dispatcher [employer] Justus Long MD MD cha Slawson, Ashby RN RN as6 Wilbert Lowe
--- NOTE | 2021-09-20 22:41 | ER ---
Nurse's Notes [facility] Name: Fawn Fleming Age: 66 yrs Sex: Female : 1955 Arrival Date: 09/20/2021 Time: 19:03 Bed 8 Private MD: Diagnosis: COPD/ Chronic obstructive pulmonary disease with (acute) exacerbation;Cardiomegaly;Chronic atrial fibrillation Presentation: 09/20 19:07 Chief complaint: Patient states: "I have been SOB since last night but my ab2 wouldn't bring me up here." Pt c/o neck pain on the right side. Coronavirus screen: Vaccine status: Patient reports receiving the 2nd dose of the covid vaccine. Client denies travel out of the [place] in the last 14 days. At this time, the client does not indicate any symptoms associated with coronavirus-19. Ebola Screen: Patient negative for fever greater than or equal to 101.5 degrees Fahrenheit, and additional compatible Ebola Virus Disease symptoms Patient denies exposure to infectious person. Patient denies travel to an Ebola-affected area in the 21 days before illness onset. No symptoms or risks identified at this time. Initial Sepsis Screen: Does the patient meet any 2 criteria? No. Patient's initial sepsis screen is negative. Does the patient have a suspected source of infection? No. Patient's initial sepsis screen is negative. Risk Assessment: Do you want to hurt yourself or someone else? Patient reports no desire to harm self or others. Onset of symptoms is unknown. 19:07 Method Of Arrival: EMS: [facility] ab2 19:07 Acuity: BLAYNE 3 ab2 Historical: - Allergies: 19:09 Bactrim DS; ab2 19:09 butorphanol tartrate; ab2 19:09 Fentanyl; ab2 19:09 Reglan; ab2 19:09 Stadol; ab2 19:09 sulfamethoxazole (bulk); ab2 19:09 TRIMETHOPRIM; ab2 - PMHx: 19:09 Anxiety; Hepatitis; Panic Attacks; HIV; Migraines; Hypertension; esophageal varices; ab2 Chronic pain; Bipolar disorder; Atrial Fib; COPD; - PSHx: 19:09 Appendectomy; Bilateral shoulder repair; Cholecystectomy; hernia repair; R wrist SX; ab2 - Immunization history:: Adult Immunizations up to date. - Social history:: Smoking status: Patient denies any tobacco usage or history of. Screenin:11 Abuse screen: Denies threats or abuse. Denies injuries from another. Nutritional ab2 screening: No deficits noted. Tuberculosis screening: No symptoms or risk factors identified. Fall Risk None identified. Assessment: 19:10 General: Appears in no apparent distress. uncomfortable, Behavior is calm, cooperative, ab2 appropriate for age. Pain: Complains of pain in back of neck. Neuro: Level of Consciousness is awake, alert, obeys commands, Oriented to person, place, time, situation, Appropriate for age Clinical Appeals Auditor are equal bilaterally Moves all extremities. Speech is normal. Cardiovascular: No deficits noted. Reports shortness of breath, Patient's skin is warm and dry. Respiratory: Airway is patent Respiratory effort is even, unlabored, Respiratory pattern is regular, symmetrical. Respiratory: Breath sounds with wheezes. GI: No deficits noted. No signs and/or symptoms were reported involving the gastrointestinal system. : No deficits noted. Derm: Skin is fragile, is thin. Vital Signs: 19:07 BP 191 / 93; Pulse 65; Resp 19; Temp 97.6; Pulse Ox 98% on R/A; Weight 99.79 kg; Height ab2 5 ft. 4 in. (162.56 cm); Pain 6/10; 20:00 BP 168 / 85; Pulse 63; Resp 18 S; Pulse Ox 99% on 3 lpm NC; as6 21:30 BP 167 / 97; Pulse 59; Resp 20 S; Pulse Ox 100% on 3 lpm NC; as6 23:00 BP 178 / 101; Pulse 64; Resp 18 S; Pulse Ox 100% on 3 lpm NC; as6 05/02 00:00 BP 189 / 86; Pulse 66; Resp 19 S; Pulse Ox 100% on 3 lpm NC; as6 09/20 19:07 Body Mass Index 37.76 (99.79 kg, 162.56 cm) ab2 ED Course: 09/20 19:03 Patient arrived in ED. ab2 19:09 Triage completed. ab2 19:11 Arm band placed on right wrist. ab2 19:11 Patient has correct armband on for positive identification. Bed in low position. Call ab2 light in reach. Side rails up X2. 19:11 No provider procedures requiring assistance completed. ab2 19:24 Justus Kolb MD is Attending Physician. thomas 19:36 Dayo Ko, ASHLEY is Primary Nurse. as6 20:03 XRAY Chest (1 view) In Process Unspecified. EDMS 22:01 Inserted saline lock: 22 gauge in right ,using aseptic technique. leg. as6 22:40 Moody Sosa MD is Referral Physician. [facility] 22:42 Per Crane MD is Referral Physician. [facility] 09/21 00:10 IV discontinued, intact, bleeding controlled, No redness/swelling at site. Pressure as6 dressing applied. Administered Medications: 09/20 21:33 Drug: AtroVENT (ipratropium) Aerosol 0.5 mg Route: Inhalation; 09/21 00:10 Follow up: Response: No adverse reaction as6 09/20 21:34 Drug: Xopenex (levalbuterol) 3.75 mg Route: Inhalation; 09/21 00:10 Follow up: Response: No adverse reaction as09/20 22:01 Drug: SOLU-Medrol (methylPrednisoLONE) 125 mg Route: IVP; Site: Other; 09/21 00:10 Follow up: Response: No adverse reaction 09/20 23:52 Drug: morphine 4 mg Route: IVP; Site: Other; 09/21 00:11 Follow up: Response: No adverse reaction; RASS: Alert and Calm (0) 09/20 23:52 Drug: Zofran (Ondansetron) 4 mg Route: IVP; Site: Other; 09/21 00:11 Follow up: Response: No adverse reaction 09/20 23:52 Drug: Potassium Effervescent Tablet 50 mEq Route: PO; 09/21 00:11 Follow up: Response: No adverse reaction 09/20 23:53 Drug: Lasix (furosemide) 40 mg Route: IVP; Site: Other; 09/21 00:10 Follow up: Response: No adverse reaction as6 Outcome: 09/20 22:40 Discharge ordered by . [facility] 09/21 00:10 Discharged to home via wheelchair, with family. as6 Condition: stable Discharge instructions given to patient, Instructed on discharge instructions, follow up and referral plans. medication usage, Demonstrated understanding of instructions, follow-up care, medications, Prescriptions given X 4. 00:11 Patient left the ED. as6 Signatures: Dispatcher [employer] Justus Long MD MD cha Slawson, Ashby, RN RN as6 Wilbert Lowe
[2021-09-20] MEDS ORDERED: FUROSEMIDE 40 MG/4 ML VIAL ONE (23:48)
[2021-09-20] MEDS ORDERED: POTASSIUM 25 MEQ EFFERV TAB ONE (23:48)
[2021-09-20] MEDS ORDERED: ONDANSETRON 4 MG/2 ML VIAL ONE (23:48)
[2021-09-20] MEDS ORDERED: MORPHINE 4 MG/ML SYR ONE (23:48)
[2021-09-21 01:28] VITALS: TEMP 97.6
[2021-09-21 01:34] VITALS: O2SAT 100
[2021-09-21 01:36] VITALS: BP 189/86
== END 2021-09-21 00:11 | disposition home or self-care (01) ==
LOC: ER 18:54
DX: J44.1 Chronic obstructive pulmonary disease with (acute) exacerbation (principal); I51.7 Cardiomegaly; I48.20 Chronic atrial fibrillation, unspecified; I10 Essential (primary) hypertension; Z21 Asymptomatic human immunodeficiency virus [HIV] infection status; Z88.1 Allergy status to other antibiotic agents; Z88.2 Allergy status to sulfonamides; Z88.5 Allergy status to narcotic agent; Z88.8 Allergy status to other drugs, medicaments and biological substances
CPT/HCPCS: 93005; 85025; 80048; 36415; 83735; 85610; 80076; 84484; 83880; 71045; 82805; J1940; J2930; J2405; 96374; 96375; 99284

== ENCOUNTER 2021-10-01 19:26 | Emergency (ER) | payer OTHER ==
--- OUTSIDE RECORDS SUMMARY | 2021-10-01 19:33 | XMS REPORT | Continuity of Care Document ---
:1955 Author Organization [facility] t Address [address] [place] [address] [place] [address] Care Team Providers Name Role Phone Francisco Rahman Primary Care Physician Ashely Attending Clinician Unavailable JENNY Attending Clinician Unavailable SELF Attending Clinician Unavailable Ronald DHILLON Attending Clinician [facility] Attending Clinician Unavailable Ap JENKINS Attending Clinician Doctor Unassigned, Name Attending Clinician Unavailable Yazmin JENKINS Attending Clinician Luisana Maharaj NP Attending Clinician Prabhu SANCHEZ Attending Clinician Unavailable Devin RECEIPT AND REPORT CLERK, R Attending Clinician Clark SANCHEZ Attending Clinician Unavailable Diana SANCHEZ Attending Clinician Unavailable Remigio JENKINS V. Attending Clinician HEMATPOUR Attending Clinician Unavailable DO SYL Attending Clinician Unavailable Kristen Rahman Admitting Clinician Unavailable Ashely Admitting Clinician Unavailable YAZMIN Admitting Clinician Unavailable DO SYL Admitting Clinician Unavailable Payers Payer Name Policy Type Policy Number Effective Date Expiration Date S gabino [facility] COMMUNITY PLAN [id number] 2012 [employer] 00:00:00 [employer] [id number] 2019 BEHAVIORAL 00:00:00 SOLUTIONS [place] [id number] 2020 00:00:00 Problems Condition Condition Condition Status Onset Resolution Last Treating Co mments Source Name Details Category Date Date Treatment Clinician Date Gastropare Gastropare Disease Active Overview : Methodi sis sis 4-[address] 00:00: [facility] 00 note l might be different from the original. Added automatic ally from request for surgery [id number] Dysphagia Dysphagia Disease Active Overview: Methodi 4-[address] 00:00: [facility] 00 note l might be different from the original. Added automatic ally from request for surgery [id number] CCL / EPS Diagnosis Active 2020-10-15 Memoria PVI 3-30 17:07:00 l ABLATION CCL / 00:00: Marty W/ CARTO / EPS PVI 00 GA / T ABLATION W/ CARTO / GA / T Active 08/19/2020 [facility] Food Food Disease Active 2019-05 Methodi intoleranc [...] (BMI 2-19 ity of 30-39.9) 30-39.9) 00:00: [facility] Anemia Anemia Disease Active 2014-05 Univers 0-03 ity of 00:00: [facility] Hypovolemi Hypovolemi Disease Active 2014-05 U nivers a due to a due to 0-02 ity of hemorrhage hemorrhage 00:[place] [facility] Chest pain Chest pain Disease Active 2014-05 U nivers 0- ity of 00:00: [place] [facility] 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:00: [place] shoulder shoulder 00 Medica l arthroplas arthroplas Br anch ty ty Posttrauma Posttrauma Disease Active U nivers tic stress tic stress 09-27 it y of disorder disorder 00:00: [place] [facility] 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 00:00: [place] virus virus Medical (HIV) (HIV) Branch disease disease Bipolar 2 Bipolar 2 Disease Active Uni vers disorder disorder 11-18 ity of 00:00: [place] [facility] Chronic Chronic Disease Active Univers hepatitis hepatitis 11-18 ity of C C 00:00: [facility] Hypertensi Hypertensi Disease Active U nivers on on 11-18 ity of 00:00: [place] [facility] Allergies, Adverse Reactions, Alerts Allergy Allergy Status Severity Reaction(s) Onset Inactive Treating Comm ents Source Name Type Date Date Clinician sulfamet DA Active SV N/V [facility] hoxazole 1-25 Clear 00:00: Garcia 00 [facility] trimetho DA Active SV [facility] prim 1-25 Clear 00:00: Garcia [facility] codeine DA Active SV N/V [facility] 1-25 Clear 00:00: Garcia [facility] Metoclop Propensi Active [place] ramide ty [...] Date Stop Date Source Natural father Hypertension [facility] Natural father [facility]ney [facility] Natural father Diabetes [facility] Natural father Other - see comments [facility] Natural [facility] [place] [facility] Cancer [facility] Social History Social Habit Start Date Stop Date Quantity Comments [facility] Alcohol Comment History of tobacco Smoker Method ist use Hospital History SDOH [facility] Alcohol Frequency Hospita l History SDOH [facility] Alcohol Std Drinks Hospit al History SDOH [facility] Alcohol Binge Hospital Exposure to Not sure University of SARS-CoV-2 (event) [facility] Alcohol intake 2021-07-14 2021-07-14 Ex-drinker [facility] 00:00:00 00:00:00 (finding) Tobacco use and 2020-10-31 2020-10-31 Smokeless tobacco [facility] exposure 00:00:00 00:00:00 non-user Cigarettes smoked 2020-09-05 2020-09-[address] current (pack per 00:00:00 00:00:00 Hospita l day) - Reported Cigarette 2020-09-05 2020-09-05 [facility] pack-years 00:00:00 00:00:00 Hospital Tobacco Comment 2015-02-14 2015-02-14 Smokes approx 1-2 Un iversity of 00:00:00 00:00:00 cigarettes per [place] [facility] porfirio day when she Branch smokes Sex Ass[birth year] [facility] 00:00:00 00:00:00 Smoking Status Start Date Stop Date Source Former smoker 2020-08-06 00:00:00 2020-08-06 00:00:00 [facility] Medications Ordered Filled Start Stop Current Ordering Indication Dosage Frequency Signature Comments Components Source Medication Medication Date Date Medication? Clinician (SIG) Name Name buPROPion Yes [id number] 150mg Take 1 U nivers XL 4-12 tablet by ity of (WELLBUTRIN 00:00: mouth [place] XL) 150 mg 00 daily. Medical 24 hr Branch tablet busPIRone Yes [id number] 30mg Take 1 Un matt 30 mg 4-12 tablet by ity of tablet 00:00: mouth 2 [place] 00 (two) Medical times Branch daily. SERTraline Yes [id number] 200mg Take 2 Univers 100 mg 4-12 tablets by ity of tablet 00:00: mouth [place] 00 daily. Medical Branch raltegravir Yes [id number] 400mg Take 1 Univers (ISENTRESS) 3-28 tablet by ity of 400 mg 00:00: mouth 2 [place] tablet 00 (two) Medical times Branch daily. LORazepam 1 Yes [id number] 1mg Take 1 Univers mg tablet 3-21 tablet by ity o f 00:00: mouth 3 [place] 00 (three) Medical times Branch daily as needed (anxiety). raltegravir Yes 400mg Q.5D Take 400 U T (Isentress) 2-22 mg by Health 400 MG 09:09: mouth 2 tablet 52 (two) times a day. LORazepam 1 2021- No [id number] 1mg Take 1 Univers mg tablet 2-21 [...] times a tablet day. buPROPion 2021- No [id number] 150mg Take 1 Univers XL -24 -12 tablet by ity of (WELLBUTRIN 00:00: [place] XL[place] 150 mg 00 :00 daily. Medical 24 hr Branch tablet busPIRone 2021- No [id number] 30mg Take 1 U nivers 30 mg 24 -12 tablet by ity of tablet 00:00: 00:00 mouth 2 [place] 00 :00 (two) Medical times Branch daily. SERTraline 2021- No [id number] 200mg Take 2 Univers 100 mg 24 -12 tablets by ity of tablet 00:00: 00:00 mouth [place] 00 :00 daily. Medical Branch emtricitabi Yes [id number] Take one Univers ne-tenofovi 1-20 po daily ity of r alafen 00:00: [place] (DESCOVY) 00 Medical tablet Branch raltegravir 2021- No [id number] 400mg Take 1 Univers (ISENTRESS) -12 03-28 tablet by it y of 400 mg 00:00: 00:00 mouth 2 [place] tablet 00 :00 (two) Medical times Branch daily. metoprolol Yes [id number] Take 1 [facility] tartrate 7-26 tablet Health (Lopressor) 00:00: (100 mg 100 MG 00 total) by tablet mouth 2 (two) times a day AND 0.5 tablets (50 mg total) every night. metoprolol Yes [id number] Take 1 [facility] tartrate 7-26 tablet Health [...] (affected area in groin) hydrALAZINE Yes 50mg Q.[id number] Take 50 mg Methodi (APRESOLINE 7-[id number] ) 50 MG [...] Hospita tablet 25 daily. l nystatin-tr Yes [id number] Apply to [facility] 11-25 area(s) 3 ity of cream 00:00: (three) [place] 00 times Medical daily. Branch budesonide- 2020- No 1{puff} QD Inhale 1 Methodi formoteroL 11-14 06-[address] (SYMBICORT) 14:37: 00:00 morning. H ospita 160-4.5 02 :00 l mcg/actuati on inhaler hydrALAZINE Yes [id number] 50mg Q.[id number] Take 1 UT (Apresoline 6-11 [id number] tablet (50 Health ) 50 MG 00:00: 3D mg total) tablet 00 by mouth 3 (three) times a day. hydrALAZINE Yes [id number] 50mg Q.[id number] Take 1 [facility] (Apresoline 6-11 [id number] tablet (50 Health ) 50 MG 00:00: [...] % 00:00: ointment 00 nystatin 2020- No [id number] Q.25D Take 5 mL Methodi (MYCOSTATIN 10-06 [...] ia 4-10 (Same as: l 14:00: Norvasc) [place] 00 emtricitabi No Notes: Caesar lsia ne 200 MG / 4-10 (Same as: l tenofovir 14:00: Descovy) Herm ariel alafenamide 00 Non-formul 25 MG Oral nancy Tablet [Descovy] pantoprazol No Notes: Caesar lisa e 4-10 Tablet l 14:00: should not [place] 00 be chewed or crushed. (Same as: Protonix) Amiodarone No Notes: Memor ia 4-10 (Same as: l 14:00: Cordarone) Amlodipine No Notes: Memor ia 4-10 (Same as: l 14:00: Norvasc) [place] 00 emtricitabi No Notes: Caesar lisa ne [...] e 4-10 Tablet l 14:00: should not [place] 00 be chewed or crushed. (Same as: [...] e 4-10 Tablet l 14:00: should not [place] 00 be chewed or crushed. (Same as: Protonix) Amiodarone No Notes: Memor ia 4-10 (Same as: l 14:00: Cordarone) [place] 00 Amlodipine No Notes: Memor ia 4-10 (Same as: l 14:00: Norvasc) [place] 00 emtricitabi No Notes: Caesar lisa ne 200 MG / 4-10 (Same as: l tenofovir 14:00: Descovy) Herm ariel alafenamide 00 Non-formul 25 MG Oral nancy Tablet [Descovy] Sertraline No Notes: Memor ia 4-10 (Same as: l 14:00: Zoloft) [place] 00 pantoprazol No Notes: Caesar lisa e 4-10 Tablet l 14:00: should not [place] 00 be chewed or crushed. (Same as: Protonix) Amiodarone No Notes: Memor ia 4-10 (Same as: l 14:00: Cordarone) [place] Amlodipine No Notes: Memor ia 4-10 (Same as: l 14:00: Norvasc) [place] emtricitabi No Notes: Caesar lisa ne 200 MG / 4-10 (Same as: l tenofovir 14:00: Descovy) Herm ariel alafenamide 00 Non-formul 25 MG Oral nancy Tablet [Descovy] Sertraline No Notes: Memor ia 4-10 (Same as: l 14:00: Zoloft) [place] 00 pantoprazol No Notes: Caesar lisa e 4-10 Tablet l 14:00: should not [place] 00 be chewed or crushed. (Same as: Protonix) Amiodarone No Notes: Memor ia 4-10 (Same as: l 14:00: Cordarone) [place] 00 Amlodipine No Notes: Memor ia 4-10 (Same as: l 14:00: Norvasc) [place] 00 emtricitabi No Notes: Caesar lisa ne 200 MG / 4-10 (Same as: l tenofovir 14:00: Descovy) Herm ariel alafenamide 00 Non-formul 25 MG Oral nancy Tablet [Descovy] Sertraline No Notes: Memor ia 4-10 (Same as: l 14:00: Zoloft) [place] 00 pantoprazol No Notes: Caesar lisa e [...] M emoria 4-10 interfere l 02:00: w/enteral [place] feeds - Take 1 hr before or [...] 0.9% 4-10 (Same as: l 02:00: BD [place] Posiflush) Eliquis No Notes: Memoria 4-10 Same [...] Memoria 4-10 Same as: l 02:00: Eliquis [place] 00 Hydralazine No Notes: Caesar lisa Hydrochlori 4-10 (Same as: l de 50 MG 02:00: Apresoline Her mitchell Oral Tablet 00 ) May interfere w/enteral feedings Take With Food Sucralfate No Notes: May M emoria 4-10 interfere l 02:00: w/enteral [place] 00 feeds - Take 1 hr before or 2 hr after antacids, dairy pdt, meals & minerals - On empty stomach. For patients unable to swallow tablet, dissolve in 10mL - 30mL of water or juice and stir before giving. (Same As: Carafate) Saline No Notes: Memoria Flush 0.9% 4-10 (Same as: l 02:00: BD [place] 00 Posiflush) Eliquis No Notes: Memoria 4-10 Same as: l 02:00: Eliquis [place] Hydralazine No Notes: Caesar lisa Hydrochlori 4-10 (Same as: l de 50 MG 02:00: Apresoline Her mitchell Oral Tablet 00 ) May interfere w/enteral feedings Take With Food Sucralfate No Notes: May M emoria 4-10 interfere l 02:00: w/enteral [place] 00 feeds - Take 1 hr before or 2 hr after antacids, dairy pdt, meals & minerals - On empty stomach. For patients unable to swallow tablet, dissolve in 10mL - 30mL of water or juice and stir before giving. (Same As: Carafate) Saline No Notes: Memoria Flush 0.9% 4-10 (Same as: l 02:00: BD [place] 00 Posiflush) Eliquis No Notes: Memoria 4-10 Same as: l 02:00: Eliquis [place] Hydralazine No Notes: Caesar lisa Hydrochlori 4-10 (Same as: l de 50 MG 02:00: Apresoline Her mit[place] Oral Tablet 00 ) May interfere w/enteral feedings Take With Food Sucralfate No Notes: May M emoria 4-10 interfere l 02:00: w/enteral [place] 00 feeds - Take 1 hr before or 2 hr after antacids, dairy pdt, meals & minerals - On empty stomach. For patients unable to swallow tablet, dissolve in 10mL - 30mL of water or juice and stir before giving. (Same As: Carafate) Saline No Notes: Memoria Flush 0.9% 4-10 (Same as: l 02:00: BD [place] 00 Posiflush) Eliquis No Notes: Memoria 4-10 Same as: l 02:00: Eliquis [place] 00 Hydralazine No Notes: Caesar lisa Hydrochlori [...] not exceed l #3 00:12: 4gm/day of [place] 00 acetaminop hen. (Same as: Tylenol with Codeine # 3) acetaminoph No Notes: Do M emoria en-codeine 4-10 not exceed l #3 00:12: 4gm/day of [place] acetaminop hen. (Same as: Tylenol with Codeine # 3) acetaminoph No Notes: Do M emoria en-codeine 4-10 not exceed l #3 00:12: 4gm/day of [place] acetaminop hen. (Same as: Tylenol with Codeine # 3) acetaminoph No Notes: Do M emoria en-codeine 4-10 not exceed l #3 00:12: 4gm/day of [place] acetaminop hen. (Same as: Tylenol with Codeine [...] oria 4-09 tab, l 22:00: Route: PO, [place] Drug form: TAB, BID, Dosing Weight 97.273, kg, Start date: 08/29/20 17:00:00 CDT, Duration: 30 day, Stop date: 09/28/20 9:00:00 CDT metoprolol 2020-0 No 100 mg, 1 Me moria tartrate - tab, l 22:00: Route: PO, [place] 00 Drug form: TAB, BID, Dosing Weight [...] tartrate 4-09 tab, l 22:00: Route: PO, [place] 00 Drug form: TAB, BID, Dosing Weight [...] oria 4-09 tab, l 22:00: Route: PO, [place] 00 Drug form: TAB, BID, Dosing Weight [...] tartrate 4-09 tab, l 22:00: Route: PO, [place] Drug form: TAB, BID, Dosing Weight 97.273, [...] oria 4-09 tab, l 22:00: Route: PO, [place] 00 Drug form: TAB, BID, Dosing Weight [...] oria -09 tab, l 22:00: Route: PO, [place] 00 Drug form: TAB, BID, Dosing Weight 97.273, kg, Start date: 08/29/20 17:00:00 CDT, Duration: 30 day, Stop date: 09/28/20 9:00:00 CDT metoprolol 1-0 No 100 mg, 1 Me moria tartrate 4-09 tab, l 22:00: Route: PO, [place] 00 Drug form: TAB, BID, Dosing Weight [...] Notes: Memoria 4-09 (Same l 17:07: as:MORPhin [place] 00 e Sulfate) Morphine No Notes: Memoria 4-09 (Same l 17:07: as:MORPhin [place] 00 e Sulfate) Morphine No Notes: Memoria 4-09 (Same l 17:07: as:MORPhin [place] 00 e Sulfate) Morphine No Notes: Memoria 4-09 (Same l 17:07: as:MORPhin [place] 00 e Sulfate) Morphine No Notes: Memoria 4-09 (Same l 17:07: as:MORPhin [place] 00 e Sulfate) Morphine No Notes: Memoria 4-09 (Same l 17:07: as:MORPhin [place] 00 e Sulfate) Morphine No Notes: Memoria 4-09 (Same l 17:07: as:MORPhin [place] 00 e Sulfate) buPROPion No 150 mg, [...] 08-29 Drug form: l 15:40: INJ, ONCE, [place] 00 Stop date: 08/29/20 10:40:00 CDT neostigmine [...] tab, 0 coated Refill(s), tablet Pharmacy: [facility] 149, 162.56, cm, 08/29/20 5:30:00 CDT, Height, 97.273, kg, 08/29/20 5:30:00 CDT, Weight pantoprazol 2021-0 Yes 40 mg = 1 M emoria e 40 mg 4-09 tab, PO, l oral 15:27: Daily, # [place] enteric 00 30 tab, 0 coated Refill(s), tablet Pharmacy: [facility] 149, 162.56, cm, 08/29/20 5:30:00 CDT, Height, 97.273, kg, 08/29/20 5:30:00 CDT, Weight pantoprazol 2021-0 Yes 40 mg = 1 M emoria e 40 mg 4-09 tab, PO, l oral 15:27: Daily, # [place] enteric 00 30 tab, 0 coated Refill(s), tablet [facility] 149, 162.56, cm, 08/29/20 5:30:00 CDT, Height, 97.273, kg, 08/29/20 5:30:00 CDT, Weight pantoprazol 1-0 Yes 40 mg = 1 M emoria e 40 mg 4-09 tab, PO, l oral 15:27: Daily, # [place] enteric 00 30 tab, 0 coated Refill(s), tablet [facility]: [facility] 149, 162.56, cm, 08/29/20 5:30:00 CDT, Height, 97.273, kg, 08/29/20 5:30:00 CDT, Weight pantoprazol 2021-0 Yes 40 mg = 1 M emoria e 40 mg 4-09 tab, PO, l oral 15:27: Daily, # [place] enteric 00 30 tab, 0 coated Refill(s), tablet [facility]: [facility] 149, 162.56, cm, 08/29/20 5:30:00 CDT, Height, 97.273, kg, 08/29/20 5:30:00 CDT, Weight pantoprazol 2021-0 Yes 40 mg = 1 M emoria e 40 mg 4-09 tab, PO, l oral 15:27: Daily, # [place] enteric 00 30 tab, 0 coated Refill(s), tablet Pharmacy: [facility] 149, 162.56, cm, 08/29/20 5:30:00 CDT, Height, 97.273, kg, 08/29/20 5:30:00 CDT, Weight pantoprazol 2020-0 Yes 40 mg = 1 M emoria e 40 mg 4-09 tab, PO, l oral 15:27: Daily, # [place] enteric 00 30 tab, 0 coated Refill(s), tablet Pharmacy: [facility] 149, 162.56, cm, 08/29/20 5:30:00 [...] nn 00 tab, 0 Refill(s), Pharmacy: [facility] 149, 162.56, cm, 08/29/20 5:30:00 CDT, Height, 97.273, kg, 08/29/20 5:30:00 CDT, Weight pantoprazol 2020-0 No 40 mg = 1 M emoria e 40 mg 4-09 tab, PO, l oral 15:26: Daily, # [place] enteric 00 30 tab, 0 coated Refill(s) tablet sucralfate 2020-0 Yes 1 gm = 1 Mem oria 1 g oral 4-09 tab, PO, l tablet 15:26: Q12H, # 28 Skylar nn 00 tab, 0 Refill(s), Pharmacy: [place] [id number], 162.56, cm, 08/29/20 5:30:00 CDT, Height, 97.273, [...] nn 00 tab, 0 Refill(s), Pharmacy: [facility] 149, 162.56, cm, 08/29/20 5:30:00 [...] nn 00 tab, 0 Refill(s), Pharmacy: [facility] 149, 162.56, cm, 08/29/20 5:30:00 CDT, Height, 97.273, kg, 08/29/20 5:30:00 CDT, Weight pantoprazol 2020-0 No 40 mg = 1 M emoria e 40 mg 4-09 tab, PO, l oral 15:26: Daily, # [place] enteric 00 30 tab, 0 coated Refill(s) tablet sucralfate 2020-0 Yes 1 gm = 1 Mem oria 1 g oral 4-09 tab, PO, l tablet 15:26: Q12H, # 28 Skylar nn 00 tab, 0 Refill(s), Pharmacy: [place] [address], 162.56, cm, 08/29/20 5:30:00 CDT, Height, 97.273, kg, 08/29/20 5:30:00 CDT, Weight pantoprazol 2020-0 No 40 mg = 1 M emoria e 40 mg 4-09 tab, PO, l oral 15:26: Daily, # [place] enteric 00 30 tab, 0 coated Refill(s) tablet sucralfate 2020-0 Yes 1 gm = 1 Mem oria 1 g oral 4-09 tab, PO, l tablet 15:26: Q12H, # 28 Skylar nn 00 tab, 0 Refill(s), Pharmacy: [facility] 149, 162.56, cm, 08/29/20 5:30:00 [...] nn 00 tab, 0 Refill(s), Pharmacy: [facility] 149, 162.56, cm, 08/29/20 5:30:00 CDT, Height, 97.273, kg, 08/29/20 5:30:00 CDT, Weight Saline No Notes: Memoria Flush 0.9% 4-09 (Same as: l 15:25: BD [place] 00 Posiflush) Lorazepam No Notes: Memori a 4-09 (Same as: l 15:25: Ativan) Saline No Notes: Memoria Flush 0.9% 4-09 (Same as: l 15:25: BD [place] 00 Posiflush) Lorazepam No Notes: Memori a 4-09 (Same as: l 15:25: Ativan) Saline No Notes: Memoria Flush 0.9% 4-09 (Same as: l 15:25: BD [place] 00 Posiflush) Saline No Notes: Memoria Flush 0.9% 4-09 (Same as: l 15:25: BD [place] 00 Posiflush) Lorazepam No Notes: Memori a 4-09 (Same as: l 15:25: Ativan) [place] 00 Lorazepam No Notes: Memori a 4-09 (Same as: l 15:25: Ativan) Saline No Notes: Memoria Flush 0.9% 4-09 (Same as: l 15:25: BD [place] 00 Posiflush) Lorazepam No Notes: Memori a [...] Drug form: l mg + 15:00: INJ, [place] 00 Dosing Weight 97.3, kg, Start date: [...] 9:18:00 CDT heparin 2020-0 No Route: IV, Caesra lisa (ANES) 08-29 Drug form: l 14:18: INJ, ONCE, Stop date: 08/29/20 9:18:00 CDT Labetalol 2020-0 No 10 mg, Memori a 08-29 Route: l 14:01: IVP, [place] 00 Q5Min, Dosing Weight 97.273, kg, PRN Elevated BP, Start date: 08/29/20 9:01:00 CDT, Duration: 5 doses or times, Stop date: Limited # of times Acetaminoph 2020-0 No 1,000 mg, M emoria en 08-29 Route: PO, l 14:01: Drug form: [place] 00 TAB, ONCE, Dosing Weight 97.273, kg, [...] oria ne 08-29 Route: l 14:01: IVP, [place] 00 Q5Min, Dosing Weight 97.273, kg, PRN [...] Memori a 08-29 Route: l 14:01: IVP, [place] 00 Q5Min, Dosing Weight 97.273, kg, PRN Elevated BP, Start date: 08/29/20 9:01:00 CDT, Duration: 5 doses or times, Stop date: Limited # of times Acetaminoph 1-0 No 1,000 mg, M emoria en 08-29 Route: PO, l 14:01: Drug form: [place] 00 TAB, ONCE, Dosing Weight 97.273, kg, [...] oria ne 08-29 Route: l 14:01: IVP, [place] 00 Q5Min, Dosing Weight 97.273, kg, PRN [...] ia 08-29 Route: l 14:01: IVP, ONCE, [place] 00 Dosing Weight 97.273, kg, PRN Nausea [...] ia 08-29 Route: l 14:01: IVP, ONCE, [place] 00 Dosing Weight 97.273, kg, PRN Nausea [...] oria ne 08-29 Route: l 14:01: IVP, [place] 00 Q5Min, Dosing Weight 97.273, kg, PRN [...] oria ne 08-29 Route: l 14:01: IVP, [place] 00 Q5Min, Dosing Weight 97.273, kg, PRN [...] Memori a 4- Route: l 14:01: IVP, [place] 00 Q2MIN, Dosing Weight 97.273, kg, PRN [...] ia 4- Route: l 14:01: IVP, ONCE, [place] 00 Dosing Weight 97.273, kg, PRN Nausea & Vomiting, Start date: 08/29/20 9:01:00 CDT Naloxone 2021-0 No 0.4 mg, Memori a 4- Route: l 14:01: IVP, [place] 00 Q2MIN, Dosing Weight 97.273, kg, PRN [...] 08-29 Route: PO, l 14:01: Drug form: [place] 00 TAB, ONCE, Dosing Weight 97.273, kg, [...] Memori a 08-29 Route: l 14:01: IVP, [place] 00 Q2MIN, Dosing Weight 97.273, kg, PRN Narcotic Reversal, Start date: 08/29/20 9:01:00 CDT, Duration: 8 doses or times, Stop date: Limited # of times Ondansetron 1-0 No 4 mg, Memor ia 08-29 Route: l 14:01: IVP, ONCE, [place] 00 Dosing Weight 97.273, kg, PRN Nausea & Vomiting, Start date: 08/29/20 9:01:00 CDT Labetalol 1-0 No 10 mg, Memori a 08-29 Route: l 14:01: IVP, [place] 00 Q5Min, Dosing Weight 97.273, kg, PRN Elevated BP, Start date: 08/29/20 9:01:00 CDT, Duration: 5 doses or times, Stop date: Limited # of times Acetaminoph 2020-0 No 1,000 mg, M emoria en 08-29 Route: PO, l 14:01: Drug form: [place] 00 TAB, ONCE, Dosing Weight 97.273, kg, [...] lisa 08-29 Route: l 14:01: IVP, PRN, [place] 00 Dosing Weight 97.273, kg, PRN Benzodiaze [...] Drug form: l 10 13:15: INJ, Start [place] microgram 00 date: 08/29/20 8:15:00 CDT, Stop date: 08/29/20 9:15:00 CDT norepinephr 2020-0 No Route: IV, Memoria ine (ANES) 08-29 Drug form: l 10 13:15: INJ, Start [place] microgram date: 08/29/20 8:15:00 CDT, Stop date: 08/29/20 9:15:00 CDT norepinephr 2020-0 No Route: IV, Memoria ine (ANES) 08-29 Drug form: l 10 13:15: INJ, Start [place] microgram date: 08/29/20 8:15:00 CDT, Stop date: 08/29/20 9:15:00 CDT norepinephr 2020-0 No Route: IV, Memoria ine (ANES) 08-29 Drug form: l 10 13:15: INJ, Start [place] microgram date: 08/29/20 8:15:00 CDT, Stop date: 08/29/20 9:15:00 CDT norepinephr 2020-0 No Route: IV, Memoria ine (ANES) 08-29 Drug form: l 10 13:15: INJ, Start [place] microgram date: 08/29/20 8:15:00 CDT, Stop date: 08/29/20 9:15:00 CDT norepinephr 2020-0 No Route: IV, Memoria ine (ANES) 08-29 Drug form: l 10 13:15: INJ, Start Amrty microgram 00 date: 08/29/20 8:15:00 CDT, Stop date: 08/29/20 9:15:00 CDT Sodium 2020-0 No Route: IV, Memor ia Chloride 4-09 Total l 0.9% IV 12:30: Volume: [place] (ANES) 1000 00 1,000, mL Start date: 08/29/20 7:30:00 CDT, Stop date: 08/29/20 8:30:00 CDT Sodium 1-0 No Route: IV, Memor ia Chloride 4-09 Total l 0.9% IV 12:30: Volume: [place] (ANES) 1000 00 1,000, mL Start date: 08/29/20 7:30:00 CDT, Stop date: 08/29/20 8:30:00 CDT Sodium 2021-0 No Route: IV, Memor ia Chloride 4-09 Total l 0.9% IV 12:30: Volume: [place] (ANES) 1000 00 1,000, mL Start date: [...] 4-09 Total l 0.9% IV 12:30: Volume: [place] (ANES) 1000 00 1,000, mL Start date: [...] PO, l Hydrochlori 11:42: Q24H, # 30 [place] de 150 MG 00 tab, 0 Extended Refill(s) Release Tablet 24 HR Yes 150 mg = 1 Memori a Bupropion -09 tab, PO, l Hydrochlori 11:42: Q24H, # 30 [place] de 150 MG 00 tab, 0 Extended [...] PO, l Hydrochlori 11:42: Q24H, # 30 [place] de 150 MG 00 tab, 0 Extended Refill(s) Release Tablet 24 HR 2020-0 Yes 150 mg = 1 Memori a Bupropion - tab, PO, l Hydrochlori 11:42: Q24H, # 30 [place] de 150 MG 00 tab, 0 Extended Refill(s) Release Tablet 24 HR 2020-0 Yes 150 mg = 1 Memori a Bupropion - tab, PO, l Hydrochlori 11:42: Q24H, # 30 [place] de 150 MG 00 tab, 0 Extended Refill(s) Release Tablet apixaban 5 2020-0 Yes 5 mg, PO, Me moria MG Oral 4 Q12H, tab, l Tablet 11:41: 0 [place] [Eliquis] 00 Refill(s), For Atrial Fibrilatio n apixaban 5 2020-0 Yes 5 mg, PO, Me moria MG Oral 08-29 Q12H, tab, l Tablet 11:41: 0 [place] [Eliquis] 00 Refill(s), For Atrial Fibrilatio n apixaban 5 2020-0 Yes 5 mg, PO, Me moria MG Oral 08-29 Q12H, tab, l Tablet 11:41: 0 [place] [Eliquis] 00 Refill(s), For Atrial Fibrilatio n apixaban 5 2020-0 Yes 5 mg, PO, Me moria MG Oral 4- Q12H, tab, l Tablet 11:41: 0 [place] [Eliquis] 00 Refill(s), For Atrial Fibrilatio n [...] tab, PO, l tablet 11:38: Daily, # [place] 00 90 tab, 3 Refill(s) AMIODarone 2020-0 Yes 200 mg = 1 M emoria 200 mg oral 4-09 tab, PO, l tablet 11:38: Daily, # [place] 00 90 tab, 3 Refill(s) AMIODarone 2020-0 Yes 200 mg = 1 M emoria 200 mg oral 4-09 tab, PO, l tablet 11:38: Daily, # Marty 00 90 tab, 3 Refill(s) AMIODarone 2020-0 Yes 200 mg = 1 M emoria 200 mg oral 4-09 tab, PO, l tablet 11:38: Daily, # [place] 00 90 tab, 3 Refill(s) AMIODarone 2020-0 Yes 200 mg = 1 M emoria 200 mg oral 4-09 tab, PO, l tablet 11:38: Daily, # [place] 00 90 tab, 3 Refill(s) AMIODarone 2020-0 [...] it y of mg tablet 08:18: (two) [place] 30 times Medical daily. Branch amiodarone Yes [...] Univers 90 4-14 ity of mcg/actuati 00:00: [place] on inhaler 00 Medical Branch albuterol Yes [...] Immunization Name Name PFIZER COVID-19 2020-07-23 Completed [facility] MRNA VACCINATION 00:00:00 [facility] PFIZER COVID-19 2020-07-02 Completed [facility] MRNA VACCINATION 00:00:00 [facility] Influenza Virus 2017-03-08 Completed Universit y of Vaccine 00:00:00 [facility] Influenza Virus 2014-01-30 Completed Universit y of Vaccine (3+ yrs) 00:00:00 [facility] dical Branch Pneumococcal 13 2014-01-30 Completed Universit y of Conjugate, PCV13 00:00:00 [facility] dical (Prevnar 13) Branch Pneumococcal 2012-02-16 Completed University o f Polysaccharide, 00:00:00 [facility] PPSV23 (PNEUMOVAX) Branch Influenza Virus 2012-02-16 Completed Universit y of Vaccine 00:00:00 [facility] PPD (TB) 2012-02-16 Completed University of 00:00:00 [facility] Hep B, Adol or Pedi 2011-09-01 Completed Unive rsity of Dosage 00:00:00 [facility] Hep B, Adol or Pedi 2011-03-17 Completed Unive rsity of Dosage 00:00:00 [facility] Influenza Virus 2011-02-10 Completed Universit y of Vaccine 00:00:00 [facility] Hep B, Adol or Pedi 2011-02-10 Completed Unive rsity of Dosage 00:00:00 [facility] PPD (TB) 2010-11-18 Completed University of 00:00:00 [facility] TDAP (ADACEL) 2010-11-18 Completed University of VACCINE 00:00:00 [facility] HEPATITIS A 2004-03-02 Completed University of 00:00:00 [facility] HEPATITIS A 2003-08-01 Completed University of 00:00:00 [facility] Pneumococcal 2001-10-04 Completed University o f Polysaccharide, 00:00:00 [facility] ical PPSV23 (PNEUMOVAX) Branch PPD () 2001-10-04 Completed University of 00:00:00 [facility] Vital Signs Vital Name Observation Time Observation Value Comments Source Systolic blood 2021-07-14 15:18:00 142 mm[Hg] [facility] Diastolic blood 2021-07-14 15:18:00 76 mm[Hg] [facility] Heart rate 2021-07-14 15:18:00 61 /min [facility] 2021-07-14 15:18:00 162.6 cm [facility] Body weight 2021-07-14 15:18:00 94.802 kg [facility] BMI 2021-07-14 15:18:00 35.87 kg/m2 [facility] Systolic blood 2021-08-21 13:13:00 191 mm[Hg] Univer sity of pressure [facility] Diastolic blood 2021-08-21 13:13:00 99 mm[Hg] Unive rsity of pressure [facility] Heart rate 2021-08-21 13:13:00 52 /min [facility] Body temperature 2021-08-21 13:11:00 36.5 Amina [facility] Res[facility] rate 2021-08-21 13:11:00 16 /min [facility] Body height 2021-08-21 13:11:00 162.6 cm [facility] Body weight 2021-08-21 13:11:00 93.759 kg [facility] BMI 2021-08-21 13:11:00 35.48 kg/m2 [facility] Oxygen saturation in 2021-08-21 13:11:00 95 /min University Arterial blood by [facility] Pulse oximetry Branch Systolic blood 2020-12-08 15:48:00 125 mm[Hg] Method [facility] pressure Diastolic blood 2020-12-08 15:48:00 76 mm[Hg] [facility] pressure Heart rate 2020-12-08 15:48:00 64 /min [facility] Body temperature 2020-12-08 15:48:00 36.61 Amina [facility] Respiratory rate 2020-12-08 15:48:00 17 /min [facility] Body height 2020-12-08 15:48:[address] [facility] Body weight 2020-12-08 15:48:[address] [facility] BMI 2020-12-08 15:48:00 37.42 kg/m2 [facility] Oxygen saturation in 2020-12-08 15:48:00 97 /min [facility] Arterial blood by Pulse oximetry Respitory Rate 2020-08-30 13:00:00 Memori al [place] Systolic (mm Hg) 2020-08-30 13:00:00 Caesar rial [place] Diastolic (mm Hg) 2020-08-30 13:00:00 Mem orial [place] Systolic (mm Hg) 2020-08-30 11:00:00 Caesar rial [place] Diastolic (mm Hg) 2020-08-30 11:00:00 Mem orial [place] Temperature Oral (F) 2020-08-30 11:00:00 98.4 F [facility] Respitory Rate 2020-08-30 11:00:00 Memori al [place] Respitory Rate 2020-08-30 10:00:00 Memori al [place] Systolic (mm Hg) 2020-08-30 10:00:00 Caesar rial [place] Diastolic (mm Hg) 2020-08-30 10:00:00 Mem orial [place] Temperature Oral (F) 2020-08-30 00:00:00 96.9 F [facility] Temperature Oral (F) 2020-08-29 11:26:00 97.6 F [facility] Height 2020-08-29 10:30:00 162.56 cm [facility] Weight 2020-08-29 10:30:00 [facility] BMI Calculated 2020-08-29 10:30:00 Darien Hammond Procedures Procedure Date / Time Performing Clinician Source Performed ECG 12-LEAD 2021-07-14 15:14:[address] [facility] [id number] 2021-06-17 00:00:00 RIKY [facility] CONSENT/REFUSAL FOR 2021-06-15 16:11:59 Doctor [facility] DIAGNOSIS AND TREATMENT [place] [facility] ASSIGNMENT OF BENEFITS 2021-06-15 16:11:40 Doctor Unassigned, [facility] GASTROINTESTINAL PANEL 2020-12-08 22:21:00 Yazmin [facility] XR ABDOMEN 1 VW 2020-12-08 18:06:32 Eliseo Glaser spital OR [place] < 1 HOUR 2020-09-05 22:39:00 Eliseo Glaser spital SURGICAL PATHOLOGY REQUEST 2020-09-05 21:54:[address] [facility] XR CHEST 1 VW PORTABLE 2020-09-05 19:55:00 Eliseo Glaser [facility] DISCHARGE PATIENT 2020-09-05 17:27:55 Lucas Harris [facility] [place] AN ELECTIVE 2020-09-05 16:47:23 Kirit Flood V. [facility] ENDOTRACHEAL AIRWAY EGD, INTRAOPERATIVE 2020-09-05 16:27:00 [facility] [place]ROM[place]IN 2020-09-05 15:04:[address] [facility] TIME (PTT) M. PROTHROMBIN TIME WITH INR 2020-09-05 15:04:00 Mindy Maharaj [facility] MChelsie Plan of Care Planned Activity Planned Date Details Comments Source Future Scheduled 2021-08-26 Screening for [facility] Test 13:02:23 malignant neoplasm of cervix (procedure) [code = 688137218] Future Scheduled 2021-08-26 BREAST CANCER [facility] Test 13:02:23 SCREENING [code = BREAST CANCER SCREENING] Future Scheduled 2021-08-26 COLONOSCOPY SCREENING [facility] Test 13:02:23 [code = COLONOSCOPY SCREENING] Future Scheduled 2021-08-26 [facility] Test 13:02:23 malignant neoplasm of lung (procedure) [code = 458275449] Future Scheduled 2021-08-26 SHINGLES VACCINES (#1) M [facility] Test 13:02:23 [code = SHINGLES VACCINES (#1)] Future Scheduled 2021-08-26 COVID-19 VACCINE (3 - Me [facility] Test 13:02:23 Pfizer risk 4-dose series) [code = COVID-19 VACCINE (3 - Pfizer risk 4-dose series)] Future Scheduled 2021-08-26 65+ [facility]UMOCOCCAL [facility] Test 13:02:23 VACCINE (4 of 4 - PPSV23) [code = 65+ PNEUMOCOCCAL VACCINE (4 of 4 - PPSV23)] Future Scheduled 2021-08-26 INFLUENZA VACCINE Method [facility] Test 13:02:23 [code = INFLUENZA VACCINE] Encounters Start End Encounter Admission Attending Care Care Encounter Source Date/Time Date/Time Type Type Clinicians Facility Department ID 2021-08-03 Inpatient Ashely, EDUARDOCL OUTD [id number] [facility] 11:30:00 Mike [id number] [facility] 2021-07-14 Outpatient JENNY [facility] [id number] [place] 09:33:51 [facility] 2021-06-16 Inpatient RAUL Lund, EDUARDOCL OUTD [id number] [facility] 08:30:00 Mike [id number] [facility] 2021-06-15 Inpatient RAUL Lund, EDUARDOCL OUTD [id number] [facility] 10:30:00 Mike [id number] [facility] 2021-09-07 2021-09-07 Outpatient Marika KOEHLER [facility] [id number] Univers 08:00:00 08:00:00 EMERITA rodas [facility] 2021-08-21 2021-08-21 Bill Checker Santiago Cardenas 1.2.840.1 [id number] Univers 10:45:00 10:45:00 Visit [facility] 12275.1.1 ity of 3.104.2.7 [place] .3.452771 Medica l .8 Branch 2021-08-21 2021-08-21 Office [place], 1.2.840.5 [id number] Univers 08:30:00 09:00:00 Visit Santiago 94879.1.1 ity of 3.104.2.7 [place] .3.910555 Medica l .8 Branch 2021-08-21 2021-08-21 Travel 1.2.840.1 1.2.443.403 [id number] Univers 00:00:00 00:00:00 86527.1.1 350.1.13.10 ity of 3.104.2.7 4.2.7.3.698 [place] .3.369725 084.8 Medica l .8 [place] 2021-08-14 2021-08-14 Telephone East, 1.2.840.6 [id number] Univers 00:00:00 00:00:00 [place] 07245.1.1 ity of 3.104.2.7 [place] .3.806585 Medica l .8 [place] 2021-08-13 2021-08-13 Telephone East, 1.2.840.6 [id number] Univers 00:00:00 00:00:00 [place] 04250.1.1 ity of 3.104.2.7 [place] .3.158804 Medica l .8 [place] 2021-08-05 2021-08-05 Outpatient WINTER Leal HCACL [id number] [facility] 05:24:00 05:24:00 Mike 31 [facility] 2021-08-05 2021-08-05 Outpatient RAUL Lund, HCACL OUTD [id number] [facility] 05:24:00 05:24:00 Mike [id number] [facility] 2021-07-14 2021-07-14 Office KIMBERLEY Lira 6400 1.2.840.114 [id number] [place] 08:45:00 09:34:01 Visit Elan ROMERO 350.1.13.58 Health 9.2.7.2.686 [id number] 1 2021-07-09 2021-07-09 Telephone Ap, KIMBERLEY 6400 1.2.840.114 [id number] [place] 00:00:00 00:00:[address] 350.1.13.58 [facility] 9.2.7.2.686 [id number] 1 2021-06-17 2021-06-17 Inpatient RAUL Lund, HCACL INTE.02 [id number] [facility] 10:56:00 14:36:00 Mike [id number] [facility] 2021-06-17 2021-06-17 Inpatient RAUL Lund, HCACL INTE.02 [id number] [facility] 10:56:00 14:36:00 Mike 47 [facility] 2021-06-15 2021-06-15 Orders Doctor 1.2.840.2 [id number] Univers 00:00:00 00:00:00 Only Unassigned, 47477.1.1 ity of [place] 3.104.2.7 [place] .3.408698 Medica l .8 Branch 2021-06-15 2021-06-15 Travel 1.2.840.1 1.2.072.068 [id number] Univers 00:00:00 00:00:00 84577.1.1 350.1.13.10 ity of 3.104.2.7 4.2.7.3.698 [place] .3.621359 084.8 Medica l .8 Branch 2021-06-11 2021-06-11 Refill East, 1.2.840.8 [id number] Univers 00:00:00 00:00:00 [place] 53286.1.1 ity of 3.104.2.7 [place] .3.290452 Medica l .8 Branch 2021-04-28 2021-04-28 Telephone Yazmin, 1.2.840.8 [id number] Methodi 00:00:00 00:00:[address] 3.430.2.7 Hospit a .3.838604 l .8 2021-03-31 2021-03-31 [facility], 1.2.840.1 [id number] Methodi 00:00:00 00:00:00 Only Sarai Lieberman 07641.1.1 979 s t 3.430.2.7 Hospit a .3.542620 l .8 2021-03-24 2021-03-24 [facility] 1.2.840.0 [id number] Methodi 00:00:00 00:00:[address] 3.430.2.7 Hospit a .3.365697 l .8 2021-01-19 2021-01-19 Telephone Pelletier, 1.2.840.1 [id number] [id number] Methodi 00:00:00 00:00:[address] 3.430.2.7 Hospit a .3.003859 l .8 2020-12-12 2020-12-12 Office Hematpour, [facility] 6400 1.2.840.114 12 [id number] 07:42:02 08:18:[address] 350.1.13.58 9.2.7.2.686 [id number] 1 2020-12-09 2020-12-09 Telephone [facility], 1.2.840.1 [id number] Methodi 00:00:00 00:00:00 Sarai Lieberman 66376.1.1 316 s t 3.430.2.7 Hospit a .3.170646 l .8 2020-12-08 2020-12-08 [facility], 1.2.840.1 [id number] [id number] Methodi 12:35:54 23:59:00 Encounter Ray [address]78.1.[address] 3.430.2.7 Hospit a .3.498316 l .8 2020-12-08 2020-12-08 [facility], 1.2.840.1 [id number] Methodi 17:25:00 17:30:[address] 3.430.2.7 Hospit a .3.787588 l .8 2020-12-08 2020-12-08 Office Yazmin, 1.2.840.1 [id number] Methodi 10:30:00 11:39:56 Visit Ray [address]7623.1.[address] 3.430.2.7 Hospit a .3.529480 l .8 2020-12-08 2020-12-08 Travel 1.2.840.1 1.2.522.720 6171 [id number] Methodi 00:00:00 00:00:[address] 3.430.2.7 0.2.7.3.698 Ho spita .3.920750 084.8 l .8 2020-12-02 2020-12-02 Bill Checker [facility] 1.2.840.114 8 [id number] 10:20:06 10:36:19 Visit Y HEALTH 350.1.13.10 [facility] 4.2.7.2.686 [id number] 316 2020-11-25 2020-11-25 Office MEGHA Beltran 1.2.840.114 [id number] 11:06:30 11:58:14 Visit Robbi R 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 350.1.13.10 REGIONAL 4.2.7.2.686 MATERNAL [id number] & CHILD 107 [facility] 2020-11-25 2020-11-25 [facility] 1.2.787.475 [id number] [id number] 00:00:00 00:00:00 Santiago Y HEALTH 350.1.13.10 CLINICS 4.2.7.2.686 [id number] 089 2020-11-25 2020-11-25 Telephone Devin [facility] 1.2.876.269 1715 0821 00:00:00 00:00:00 Rossandynda R 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 CLERK 350.1.13.10 REGIONAL 4.2.7.2.686 MATERNAL [id number] & CHILD 107 [facility] 2020-11-14 2020-11-14 Abstract Rodas, 1.2.840.1 [id number] Methodi 00:00:00 00:00:[address] 3.430.2.7 Hospit a .3.283113 l .8 2020-11-14 2020-11-14 Telephone Clark, 1.2.840.1 [id number] 2099 [id number] Methodi 00:00:00 00:00:[address] 3.430.2.7 Hospit a .3.445509 l .8 2020-11-07 2020-11-07 Telephone Diana, KIMBERLEY 6400 1.2.840.114 124 [id number] 00:00:00 00:00:[address] 350.1.13.58 9.2.7.2.686 [id number] 1 2020-10-27 2020-10-27 Telephone Yazmin, 1.2.840.9 [id number] Methodi 00:00:00 00:00:[address] 3.430.2.7 Hospit a .3.556564 l .8 2020-10-24 2020-10-24 Telephone Rodas, 1.2.840.1 [id number] [id number] Methodi 00:00:00 00:00:[address] 3.430.2.7 Hospit a .3.159841 l .8 2020-10-06 2020-10-12 Telemedici [facility], 1.2.840.1 [id number] Methodi 15:30:00 00:08:46 ne Ray [address]1598.1.[address] 3.430.2.7 Hospit a .3.805951 l .8 2020-09-30 2020-09-30 Telephone Yazmin, 1.2.840.3 [id number] Methodi 00:00:00 00:00:[address] 3.430.2.7 Hospit a .3.739112 l .8 2020-09-21 2020-09-21 Travel 1.2.840.1 1.2.839.348 2711 [id number] Methodi 00:00:00 00:00:[address] 3.430.2.7 0.2.7.3.698 spita .3.247610 084.8 l .8 2020-09-06 2020-09-06 [facility] 1.2.840.1 [id number] Methodi 17:42:30 23:59:[address] 3.430.2.7 Hospit a .3.543762 l .8 2020-09-06 2020-09-06 [facility], 1.2.840.1 [id number] 2099 [id number] Methodi 16:50:00 17:41:00 Encounter Ray [address]01.1.[address] 3.430.2.7 Hospit a .3.418628 l .8 2020-09-05 2020-09-05 [facility], 1.2.840.1 [id number] 2099 [id number] Methodi 09:17:00 19:45:00 Encounter Ray [address]45.1.[address] 3.430.2.7 Hospit a .3.956471 l .8 2020-09-05 2020-09-05 Surgery [facility], 1.2.840.1 [id number] Methodi 11:30:00 13:15:[address] 3.430.2.7 Hospit a .3.519011 l .8 2020-09-05 2020-09-05 Anesthesia [facility], 1.2.840.1 [id number] Methodi 11:27:00 12:20:00 Event Kirit 70085.1.1 243 s t V. 3.430.2.7 Hospit a .3.783324 l .8 2020-09-05 2020-09-05 Travel 1.2.840.1 1.2.520.517 1412 [id number] Methodi 00:00:00 00:00:[address] 3.430.2.7 0.2.7.3.698 Ho spita .3.004397 084.8 l .8 2020-09-04 2020-09-04 Telephone Meisenbach, 1.2.840.1 [id number] Methodi 00:00:00 00:00:00 Sarai Lieberman 92754.1.1 762 s t 3.430.2.7 Hospit a .3.111305 l .8 2020-09-02 2020-09-02 Telephone [place], 1.2.840.9 [id number] Methodi 00:00:00 00:00:00 Sarai Lieberman 47277.1.1 344 s t 3.430.2.7 Hospit a .3.160963 l .8 2020-08-29 2020-08-[id number] [facility] 10:20:00 14:10:00 Outpatient [facility] 00 l [facility] 2020-08-29 2020-08-30 Outpatient HEMATPOUR, [facility] CAR 7500 [facility] 05:20:00 09:10:00 [place] Results Test Description Test Time Test Comments Results Result Comments Source Novel Coronavirus 2018 Inhouse 2021-08-03 18:08:00 Test Item Value Reference Range Interpretation Comme nts Novel Coronavirus 2018 Negative Negative Posit bruno results are indicative of the Inhouse (test code = presenc e fxBYCM-KmR-2 RNA, clinical COVNONPUI) correlation wit h patient [...] qualitative detection of nucleic acid s from amkRJFW-GnV-8 virus and diagn osis of SARS-CoV-2 virusinfection. It is an Emergency Use Authorization ( EUA) testauthorized by the U.S. FDA. BASIC METABOLIC [id number] 09:37:00 Test Item Value Reference Range Interpretation [...] = 9.0 mg/dL 8.0-10.5 N CA) PROTHROMBIN [id number] 09:32:00 Test Item Value Reference Range Interpretation [...] o prevent recurre nt infarct). 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[place] [facility] - XR CHEST 1 [id number] 00:00:00 [facility] 1955 Sex: F FAX: Lele Olivera DO [phone] [place]: St: ADM FAX: Jean Paul Scales MD [phone] FAX: Bahman Chopra [phone] Name: LIO WATTS [facility] : 1955 Age/S: 66/F [address] [place], [place] [address]vd Unit #: [id number] Loc: [place] [address] Phys: Bahman Chopra 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 BASIC METABOLIC [id number] 11:37:00 Test Item Value Reference Range Interpretation [...] code = 9.0 mg/dL 8.0-10.5 N CA) [id number] 11:37:00 Test Item Value Reference Range Interpretation Comments PREALBUMIN (test code = PREALB) 24.3 mg/dL 16.0-40.0 N PROTHROMBIN [id number] 11:03:00 Test Item Value Reference Range Interpretation [...] o prevent recurre nt infarct). CBC W/AUTO [id number] 10:59:00 Test Item Value Reference Range Interpretation [...] 0.0-0.1 N NRBC#) - XR CHEST 2 [id number] 00:00:00 [facility] 1955 Sex: F FAX: Lele Olivera DO [phone] [place]: St: PRE FAX: Jean Paul Scales MD [phone] Name: LIO WATTS [facility] : 1955 Age/S: 66/F [address] [place] [address] Unit #: [id number] Loc: [place] [address] Phys: [id number] Dis Date: Status: PRE [facility] [place] #: [phone] Exam Date: 06/16/2021 1120 FAX #: [phone] Reason: PREOP EXAMS: CPT CODE: [id number] XR CHEST 2 V 69042 PROCEDURE INFORMATION: Exam: XR Chest Exam date [...] Technologist: Danielle Nix RT(R) Trnscrd Date/Time/By: 06/16/2021 (2266) : By: [email or web address] Orig Print D/T: S: 06/16/2021 (6398) PAGE 1 Signed ReportGastrointestinal [id number] 04:35:05 Test Item Value Reference Interpretation Comments [...] Rotavirus PCR (test Not Detected code = 3477507) Salmonella PCR (test Not Detected code = [...] PCR Not Detected (test code = 7124) [facility] [id number] 19:30:47 Test Item Value Reference Range Interpretation Comments Case number (test [id number] code = 7286161) Surgical pathology See link below for PDF report (test code = Lab Report 2255) Result status (test This is Supplemental code = 0304076) Report for [id number] [facility]2021-04-09 16:31:00 Test Item Value Reference Range Interpretation Comments POC Activated Clotting Time (test code 153 s = POC Activated Clotting Time) [place] [id number] 16:31:00 Test Item Value Reference Range Interpretation Comments POC Activated Clotting Time (test code 153 s = POC Activated Clotting Time) [place] [id number] 16:31:00 Test Item Value Reference Range Interpretation Comments POC Activated Clotting Time (test code 153 s = POC Activated Clotting Time) [place] [id number] 16:31:00 Test Item Value Reference Range Interpretation Comments POC Activated Clotting Time (test code 153 s = POC Activated Clotting Time) [id number] 16:31:00 Test Item Value Reference Range Interpretation Comments POC Activated Clotting Time (test code 153 s = POC Activated Clotting Time) [facility] [id number] 16:31:00 Test Item Value Reference Range Interpretation Comments POC Activated Clotting Time (test code 153 s = POC Activated Clotting Time) [facility] [id number] 16:31:00 Test Item Value Reference Range Interpretation Comments POC Activated Clotting Time (test code 153 s = POC Activated Clotting Time) [place] [id number] 14:37:00 Test Item Value Reference Range Interpretation Comments POC Activated Clotting Time (test code 454 s = POC Activated Clotting Time) [place] [id number] 14:37:00 Test Item Value Reference Range Interpretation Comments POC Activated Clotting Time (test code 454 s = POC Activated Clotting Time) [place] [id number] 14:37:00 Test Item Value Reference Range Interpretation Comments POC Activated Clotting Time (test code 454 s = POC Activated Clotting Time) [place] [id number] 14:37:00 Test Item Value Reference Range Interpretation Comments POC Activated Clotting Time (test code 454 s = POC Activated Clotting Time) [place] [id number] 14:37:00 Test Item Value Reference Range Interpretation Comments POC Activated Clotting Time (test code 454 s = POC Activated Cl[facility]ting Time) [id number] 14:37:00 Test Item Value Reference Range Interpretation Comments POC Activated Clotting Time (test code 454 s = POC Activated Clotting Time) [id number] 14:37:00 Test Item Value Reference Range Interpretation Comments POC Activated Clotting Time (test code 454 s = POC Activated Clotting Time) [id number] 14:13:00 Test Item Value Reference Range Interpretation Comments POC Activated Clotting Time (test code 354 s = POC Activated Clotting Time) [facility] HospitalPgsnypiIFDTOKNVHH7870-94-48 14:13:00 Test Item Value Reference Range Interpretation Comments POC Activated Clotting Time (test code 354 s = POC Activated Clotting Time) [facility] HospitalUmbvexqTUXRJRUTBY1144-77-04 14:13:00 Test Item Value Reference Range Interpretation Comments POC Activated Clotting Time (test code 354 s = POC Activated Clotting Time) [facility] HospitalRbdmapsITIJZGRPVJ8746-24-91 14:13:00 Test Item Value Reference Range Interpretation Comments POC Activated Clotting Time (test code 354 s = POC Activated Clotting Time) [facility] HospitalXhksnxwZKAXUDALZO9843-58-57 14:13:00 Test Item Value Reference Range Interpretation Comments POC Activated Clotting Time (test code 354 s = POC Activated Clotting Time) [facility] HospitalGwbamivOOHXKNIJID4168-55-74 14:13:00 Test Item Value Reference Range Interpretation Comments POC Activated Clotting Time (test code 354 s = POC Activated Clotting Time) [facility] HospitalUiloaijMMYKHPRFMQ2324-19-12 14:13:00 Test Item Value Reference Range Interpretation Comments POC Activated Clotting Time (test code 354 s = POC Activated Clotting Time) [facility] HZRALTE3320-49-58 10:37:00Negative (08/29/20 5:37 AM) [facility] JNIUW5875[facility]68-18 10:37:46234Twedvcab HermannCHEM PANEL 2020-08-29 10:37:0028[facility]annCHEM QXQMN3495-17-64 10:37:001.01[facility]annCHEM WJDRU8599-47-09 10:37:45472Fqsnlkes HermannCHEM SOHZY2443-14-38 10:37:003.8[facility]annCHEM NTJZA0938-85-04 10:37:36789Wgbtcekz HermannCHEM OUVCR1129-25-54 10:37:0028[facility]annCHEM OWMSD7106-01-86 10:37:009.8 [facility]annCHE[facility] SJUFR7999-17-30 10:37:0011.8[facility] HermannCHEM PANEL 2020-08-29 10:37:0059[facility] HermannCHEM DOBTH2949-02-03 10:37:002.9[facility] PpoeqntFDETSHYKHM9300-30-30 10:37:006.8[facility] XfbwetjKPPQDEOYBF4308-54-97 10:37:004.47[facility] KukfkmcGCAAXJWYIZ5379-72-25 10:37:0010.6[facility] RMFOLPUNMW3433-08-26 10:37:0034.0[facility] UvjfbrpSJPKMTQVKB5772-26-04 10:37:00 76.1[facility] BenhtxlQSDEHBCPLJ3502-56-04 10:37:00 Test Item Value Reference Range Interpretation Comments MCH (test code = MCH) 23.8 pg 27.0-31.0 [facility] PomtuxpITGOHWWFON1530-37-71 10:37:0031.3[facility]annHEMATOLOGY 2020-08-29 10:37:0018.2[facility] VonehrbKVGYLENKJL5578-75-77 10:37:92499Yvhoryja LhwgtwhXWWUIMVCMM3867-76-55 10:37:007.5[facility] UkzphnlDOXDCDIRYS8101-48-76 10:37:00 Test Item Value Reference Range Interpretation Comments PT (test code = PT) 12.8 s 12.0-14.7 [facility] CdrsxrpYOMVQUKLOA8417-19-03 10:37:00 Test Item Value Reference Range Interpretation Comments INR (test code = INR) 0.97 1 0.85-1.17 [facility] MrgpnqiWDSWYJQLKT1761-84-07 10:37:00 Test Item Value Reference Range Interpretation Comments PTT (test code = PTT) 25.0 s 22.9-35.8 [facility] LqfrtndBWFEEGWIZQ5563-90-80 10:37:0070.5[facility]annHEMATOLOGY 2020-08-29 10:37:0018.8[facility] KkxsykbTVDOSTHWHA8177-09-54 10:37:009.5[facility] NqwicjpOZXGHCTKUM8287-62-30 10:37:000.9[facility] VokknbqOBFUURWEON7659-88-31 10:37:000.3[facility] SsbjkxuKKGWTSLLXS6783-00-00 10:37:004.8[facility] FLYVKTJOEI2807-87-43 10:37:001.3[facility] BewhaqbGMJCLPRWBO5560-72-91 10:37:000.6 [facility] QgpirffJGUVJJNJRF6275-82-69 10:37:000.1[facility]annHEMATOLOGY 2020-08-29 10:37:001+ *ABN*(08/29/20 5:37 AM)[facility] RgacqomVZYCCSBTYC7277-90-57 10:37:00Not Detected (08/29/20 5:37 AM)[facility]annBLOOD BANK RESULTS 2020-08-29 10:37:00Negative (08/29/20 5:37 AM)[facility]annCHEM YVUOY8061-48-98 10:37:63141Hovmeouc HermannCHEM VXYWU0821-92-53 10:37:0028[facility] HermannCHEM BNQQF6312-64-00 10:37:001.01[facility] HermannCHEM DTBJS8460-43-25 10:37:68472 [facility]annCHEM RWDOK2454-93-40 10:37:003.8[facility] HermannCHEM PANEL 2020-08-29 10:37:84330Jcbuerwg HermannCHEM MRNVX3776-58-73 10:37:0028[facility] HermannCHEM KTTBL0182-21-28 10:37:009.8[facility] HermannCHEM UJHNQ0295-66-42 10:37:0011.8[facility] HermannCHEM SXVNT5607-97-81 10:37:0059[facility] HermannCHEM YNKRC2958-13-63 10:37:002.9[facility] WlyfiliOSIUVELYVR5668-32-80 10:37:006.8 [facility] EysurpqILYLCOIRZO3683-70-47 10:37:004.47[facility] HermannHEMATOLOGY 2020-08-29 10:37:0010.6[facility] UivjderOJAWBWHBVY0796-65-45 10:37:0034.0[facility] BfazuzkOAWSDGVUTI8674-53-67 10:37:0076.1[facility] HknmjpzTZHDNNKISA0592-57-36 10:37:00 Test Item Value Reference Range Interpretation Comments MCH (test code = MCH) 23.8 pg 27.0-31.0 [facility] IuhhjbhCQENFRCZMD9500-09-51 10:37:0031.3[facility] HermannHEMATOLOGY 2020-08-29 10:37:0018.2[facility] BsvbwdlENLEMPRTYD0226-60-45 10:37:47380Ucnozigk UkfosbfCEOKRRIADX1992-49-29 10:37:007.5[facility] OpcsaelRXJVAONASH8912-95-65 10:37:00 Test Item Value Reference Range Interpretation Comments PT (test code = PT) 12.8 s 12.0-14.7 [facility] VcxyeibFNFRLSFHNW8116-30-69 10:37:00 Test Item Value Reference Range Interpretation Comments INR (test code = INR) 0.97 1 0.85-1.17 [facility] JxvymbbVHNVRWWMHP9965-04-90 10:37:00 Test Item Value Reference Range Interpretation Comments PTT (test code = PTT) 25.0 s 22.9-35.8 [facility] NpeifgrNJBNMVHHZI6244-27-64 10:37:0070.5[facility] HermannHEMATOLOGY 2020-08-29 10:37:0018.8[facility] QnekmefMXTBPGTOOM6108-76-62 10:37:009.5[facility] OjdjbogRZCMLCCVTL4842-91-25 10:37:000.9[facility] WhvtaesFWQOKRUOLF5070-44-85 10:37:000.3[facility] MasjxvlWYPTMLZPSH4574-89-22 10:37:004.8[facility] JUFTUPJNAM6549-95-73 10:37:001.3[facility] FsqrnywIDZHTEGFZR8041-77-14 10:37:000.6 [facility] EakglwvBTIOBIKZTZ0332-56-66 10:37:000.1[facility] HermannHEMATOLOGY 2020-08-29 10:37:001+ *ABN*(08/29/20 5:37 AM)[facility] UtwrzrzXSRGYQYXOH0813-42-98 10:37:00Not Detected (08/29/20 5:37 AM)[facility]annBLOOD BANK RESULTS 2020-08-29 10:37:00Negative (08/29/20 5:37 AM)[facility] HermannCHEM FHWCK4121-82-08 10:37:98592Clzpatov HermannCHEM FXLNK6555-07-44 10:37:0028[facility] HermannCHEM OHFTK9039-53-06 10:37:001.01[facility] HermannCHEM BITIQ0963-33-40 10:37:83397 [facility]annCHEM QVPMF8646-58-04 10:37:003.8[facility] HermannCHEM PANEL 2020-08-29 10:37:63449Zzhoakii HermannCHEM GHLLM7554-70-61 10:37:0028[facility] HermannCHEM OTOMY2052-56-65 10:37:009.8[facility] HermannCHEM ECZHU3710-42-45 10:37:0011.8[facility] HermannCHEM BAELE3505-41-24 10:37:0059[facility] HermannCHEM ZBQNR6902-76-05 10:37:002.9[facility] SkgbcqdSNAXEGTKGT8319-69-74 10:37:006.8 [facility] DmnxiklEFXGMFKMVN9387-50-33 10:37:004.47[facility] HermannHEMATOLOGY 2020-08-29 10:37:0010.6[facility] BjzoovsJGGVONWQGQ7210-33-08 10:37:0034.0[facility] AbbenbzALQISWJZAU4266-61-42 10:37:0076.1[facility] QuevfgkJYXAKHLHJG9965-94-18 10:37:00 Test Item Value Reference Range Interpretation Comments MCH (test code = MCH) 23.8 pg 27.0-31.0 [facility] TidldwxRUVOPHREQF4130-83-24 10:37:0031.3[facility] HermannHEMATOLOGY 2020-08-29 10:37:0018.2[facility] PdctohiZJKPKOXBRP5375-54-07 10:37:13807Ocvfbsqf LjpbmijVLBNACVHYA1131-35-95 10:37:007.5[facility] CmwzljbCGQYXVJVVG0725-68-93 10:37:00 Test Item Value Reference Range Interpretation Comments PT (test code = PT) 12.8 s 12.0-14.7 [facility] DylubuqGPWZIACGGD3342-60-74 10:37:00 Test Item Value Reference Range Interpretation Comments INR (test code = INR) 0.97 1 0.85-1.17 [facility] ApozvudETCTTEPCJY2063-15-05 10:37:00 Test Item Value Reference Range Interpretation Comments PTT (test code = PTT) 25.0 s 22.9-35.8 [facility] RuudwygDHJZVHVGBY7146-89-82 10:37:0070.5[facility] HermannHEMATOLOGY 2020-08-29 10:37:0018.8[facility] OerkwkbVHOXGEILZP6254-55-83 10:37:009.5[facility] WtkobssFGWNXOTBBA7273-03-57 10:37:000.9[facility] KfwwtcsSXEXIDDIWJ2514-11-69 10:37:000.3[facility] EekqqfaMCBWLGMUJE3067-08-31 10:37:004.8[facility] OPPYDKFWAC4171-24-73 10:37:001.3[facility] QiupfacAHHEEIBLQB2707-67-02 10:37:000.6 [facility] BnnginpKIJGWWHECG4116-92-51 10:37:000.1[facility] HermannHEMATOLOGY 2020-08-29 10:37:001+ *ABN*(08/29/20 5:37 AM)[facility] BaixusqVPBSJVLIMM5907-11-19 10:37:00Not Detected (08/29/20 5:37 AM)[facility] HermannBLOOD BANK RESULTS 2020-08-29 10:37:00Negative (08/29/20 5:37 AM)[facility] HermannCHEM TPPSJ9661-65-41 10:37:88271Dmmtauwy HermannCHEM LLBVH9682-75-82 10:37:0028[facility] HermannCHEM NLZQD6277-77-28 10:37:001.01[facility] HermannCHEM AVTWL3124-79-89 10:37:62892 [facility]annCHEM GEGYO9984-07-15 10:37:003.8[facility] HermannCHEM PANEL 2020-08-29 10:37:28080Eempyqvm HermannCHEM ZYONF3269-68-61 10:37:0028[facility] HermannCHEM QAFWK2658-49-59 10:37:009.8[facility] HermannCHEM SPADF1128-69-89 10:37:0011.8[facility] HermannCHEM YIGCQ0901-47-83 10:37:0059[facility] HermannCHEM FAEAZ8532-73-86 10:37:002.9[facility] GplqocpPFGTBXRLEO6286-50-58 10:37:006.8 [facility] XbljwziDZMQZBKFUI7950-93-62 10:37:004.47[facility] HermannHEMATOLOGY 2020-08-29 10:37:0010.6[facility] OhwhoxcIEWOMLXLUP9749-24-74 10:37:0034.0[facility] XchuydxKLWWJDEZMC5816-51-72 10:37:0076.1[facility] LlmfuizTOLCFYPSCS5898-08-70 10:37:00 Test Item Value Reference Range Interpretation Comments MCH (test code = MCH) 23.8 pg 27.0-31.0 [facility] AhmprhpEKTFBHBBHG2254-01-87 10:37:0031.3[facility] HermannHEMATOLOGY 2020-08-29 10:37:0018.2[facility] MicxowwSUWHVHQJTZ9240-89-83 10:37:60638Snsqwabl SxkptfjIROQSSNMKH1564-26-14 10:37:007.5[facility] RstcddbJBLKQRVEAW7442-17-22 10:37:00 Test Item Value Reference Range Interpretation Comments PT (test code = PT) 12.8 s 12.0-14.7 [facility] UdhikjnKWYDSAKSSA9959-12-95 10:37:00 Test Item Value Reference Range Interpretation Comments INR (test code = INR) 0.97 1 0.85-1.17 [facility] CcvjslzYZTXJCPLDW2021-42-20 10:37:00 Test Item Value Reference Range Interpretation Comments PTT (test code = PTT) 25.0 s 22.9-35.8 [facility] OjkieckYLDPEFWICC9175-61-90 10:37:0070.5[facility] HermannHEMATOLOGY 2020-08-29 10:37:0018.8[facility] LjuhhegDSQXJQKZAS9023-40-98 10:37:009.5[facility] IlrzvfxDWEPPEFGBK5368-44-80 10:37:000.9[facility] LnjucfvGBWTIFBHLF8476-84-87 10:37:000.3[facility] FwddqybCDTLERCIEC3769-75-98 10:37:004.8[facility] XAJUFGZHMY1033-92-09 10:37:001.3[facility] VygwltaURXNLKHWBE0059-37-70 10:37:000.6 [facility] DebqbmhXYYKEPRUOG9053-70-75 10:37:000.1[facility] HermannHEMATOLOGY 2020-08-29 10:37:001+ *ABN*(08/29/20 5:37 AM)[facility] CmjddrmSMOFLZHGXK3459-94-55 10:37:00Not Detected (08/29/20 5:37 AM)[facility] HermannBLOOD BANK RESULTS 2020-08-29 10:37:00Negative (08/29/20 5:37 AM)[facility] HermannCHEM JOGEA8107-32-46 10:37:37108Ensyayxz HermannCHEM DNHMU6321-67-36 10:37:0028[facility] HermannCHEM FFCUU8407-80-60 10:37:001.01[facility] HermannCHEM STTFO2979-00-64 10:37:20073 [facility] HermannCHEM RKOKI9354-95-60 10:37:003.8[facility] HermannCHEM PANEL 2020-08-29 10:37:61506Krhcafwv HermannCHEM EESFR2553-47-55 10:37:0028[facility] HermannCHEM SGTMV2933-14-40 10:37:009.8[facility] HermannCHEM QLIQX7155-05-34 10:37:0011.8[facility] HermannCHEM QCVIL8588-66-27 10:37:0059[facility] HermannCHEM EGCKK0160-48-12 10:37:002.9[facility] SbzhrklXCKUWKCZHH7017-92-39 10:37:006.8 [facility] ZstoujlUMZNNAMETL4361-13-99 10:37:004.47[facility] HermannHEMATOLOGY 2020-08-29 10:37:0010.6[facility] FhvtmzgGAMSTPXIGG9997-96-00 10:37:0034.0[facility] UhiwmzuPKAPEIOQPY3209-77-90 10:37:0076.1[facility] DodwtdqJRLIXUCHLO4069-66-49 10:37:00 Test Item Value Reference Range Interpretation Comments MCH (test code = MCH) 23.8 pg 27.0-31.0 [facility] XpbzdylCFOBDXACZZ6607-00-18 10:37:0031.3[facility] HermannHEMATOLOGY 2020-08-29 10:37:0018.2[facility] QnikgtaLFGCZRAOLQ0639-55-41 10:37:40342Oetctavi DpwfnghRWXWBSYHXC7187-98-80 10:37:007.5[facility] ZoprhtlLNRECOJRXQ0926-09-66 10:37:00 Test Item Value Reference Range Interpretation Comments PT (test code = PT) 12.8 s 12.0-14.7 [facility] EeisplcPMCOQPNETW7448-67-37 10:37:00 Test Item Value Reference Range Interpretation Comments INR (test code = INR) 0.97 1 0.85-1.17 [facility] DpzrtyeEAUYMHBRMS7313-79-84 10:37:00 Test Item Value Reference Range Interpretation Comments PTT (test code = PTT) 25.0 s 22.9-35.8 [facility] NfxuvekFOHZYERJLE4199-57-23 10:37:0070.5[facility] HermannHEMATOLOGY 2020-08-29 10:37:0018.8[facility] FzzvyzdDLCKFTCERA0282-62-23 10:37:009.5[facility] MsziicwJBLVDVSWBL7634-39-01 10:37:000.9[facility] OacmvsnFIQTPCMFRZ5569-53-69 10:37:000.3[facility] SpwqxieRPEYJRFCAU0870-92-99 10:37:004.8[facility] XJBCHUGJMB7140-54-56 10:37:001.3[facility] UkmxfhuHYOBPTHIVQ6159-64-66 10:37:000.6 [facility] SiofgeaCYVYQTHRLZ5773-42-33 10:37:000.1[facility] HermannHEMATOLOGY 2020-08-29 10:37:001+ *ABN*(08/29/20 5:37 AM)[facility] JcollgcNDUYVWTARO4962-18-35 10:37:00Not Detected (08/29/20 5:37 AM)[facility] HermannBLOOD BANK RESULTS 2020-08-29 10:37:00Negative (08/29/20 5:37 AM)[facility] HermannCHEM JPWKV2944-73-69 10:37:17312Rktwklzt HermannCHEM MDPTN8910-36-38 10:37:0028[facility] HermannCHEM EMVSH8582-49-04 10:37:001.01[facility] HermannCHEM FZSOY9759-84-37 10:37:14763 [facility] HermannCHEM VDYNT7658-31-83 10:37:003.8[facility] HermannCHEM PANEL 2020-08-29 10:37:28380Nvzcsrpz HermannCHEM DZJGQ7287-54-93 10:37:0028[facility] HermannCHEM CXNFM9817-10-22 10:37:009.8[facility] HermannCHEM ICTVL1234-33-45 10:37:0011.8[facility] HermannCHEM SXNYB4379-43-32 10:37:0059[facility] HermannCHEM ACKNQ9605-32-29 10:37:002.9[facility] HujnihoDYCNCKJPIZ6522-81-17 10:37:006.8 [facility] KxmhkimOQZEPAJWGV3416-07-30 10:37:004.47[facility] HermannHEMATOLOGY 2020-08-29 10:37:0010.6[facility] BympjtxBPNMYIWMXJ0464-57-73 10:37:0034.0[facility] HzouymbBVHWITSCLL2604-18-40 10:37:0076.1[facility] UixmwqxSZEZTRSEGN7850-94-00 10:37:00 Test Item Value Reference Range Interpretation Comments MCH (test code = MCH) 23.8 pg 27.0-31.0 [facility] EpnnacxLLMGVLALGU1782-35-43 10:37:0031.3[facility] HermannHEMATOLOGY 2020-08-29 10:37:0018.2[facility] BmbzntvFTNZFWTHAC8923-24-72 10:37:44802Jdbquvsw DdlgeegPYBENYBWNW2430-81-29 10:37:007.5[facility] EsgzjoxNTMSJALMMB2478-59-98 10:37:00 Test Item Value Reference Range Interpretation Comments PT (test code = PT) 12.8 s 12.0-14.7 [facility] KnzazorTSVBUYMSBJ2791-82-75 10:37:00 Test Item Value Reference Range Interpretation Comments INR (test code = INR) 0.97 1 0.85-1.17 [facility] HnnlbizNIYJWPSUYR8340-83-94 10:37:00 Test Item Value Reference Range Interpretation Comments PTT (test code = PTT) 25.0 s 22.9-35.8 [facility] TpikzrrIYGITNWKWL2681-75-96 10:37:0070.5[facility] HermannHEMATOLOGY 2020-08-29 10:37:0018.8[facility] GpazbpmQWWZEFRCYS3250-03-98 10:37:009.5[facility] YxbhdnyIENYKYZYES5729-62-04 10:37:000.9[facility] HdppuqrQSIPFEEPOV5772-01-67 10:37:000.3[facility] WciybvxKFZLUJADVA0725-16-87 10:37:004.8[facility] CGQFMSWGJD5793-84-16 10:37:001.3[facility] ZpthwtaYFTKCTACOF8014-33-93 10:37:000.6 [facility] OndyghgSUHTPSSMPG5727-23-43 10:37:000.1[facility] HermannHEMATOLOGY 2020-08-29 10:37:001+ *ABN*(08/29/20 5:37 AM)[facility] WuyxftkBRNKCGXVFN5043-77-33 10:37:00Not Detected (08/29/20 5:37 AM)[facility]annBLOOD BANK RESULTS 2020-08-29 10:37:00Negative (08/29/20 5:37 AM)[facility] HermannCHEM XGLVO4470-34-01 10:37:26828Ywiuqgjg HermannCHEM DWELG5663-24-14 10:37:0028[facility] HermannCHEM ADCCE0367-41-53 10:37:001.01[facility] HermannCHEM ZWZXA6860-41-37 10:37:21471 [facility]annCHEM WAMMH6222-41-51 10:37:003.8[facility] HermannCHEM PANEL 2020-08-29 10:37:42078Jkwrkjhv HermannCHEM HQJQX1756-34-54 10:37:0028[facility] HermannCHEM FEWFK2315-69-21 10:37:009.8[facility] HermannCHEM DCXEJ8476-88-97 10:37:0011.8[facility] HermannCHEM SUWWD1041-46-87 10:37:0059[facility] HermannCHEM LLXJW5770-95-90 10:37:002.9[facility] MqwhitrZCZVAIMAFH6867-34-48 10:37:006.8 [facility] YqtbzwrKGPFZZTNCZ6001-48-88 10:37:004.47[facility]annHEMATOLOGY 2020-08-29 10:37:0010.6[facility] ModxrykWHGGWJJNIK8682-35-66 10:37:0034.0[facility] GtaqxaeYIHZWXPHMC6045-94-25 10:37:0076.1[facility] OnilftcFUQDQJFVZA1611-82-96 10:37:00 Test Item Value Reference Range Interpretation Comments MCH (test code = MCH) 23.8 pg 27.0-31.0 [facility] RlkubiaJXMWAJUXUJ2763-42-28 10:37:0031.3[facility]annHEMATOLOGY 2020-08-29 10:37:0018.2[facility] GjbxpxvQWMEZTWBZV2359-53-36 10:37:69164Djunslpk YrllsmeWOSLIHTVTD1709-21-59 10:37:007.5[facility] TvmyjliWCAYFQOTIG4503-46-19 10:37:00 Test Item Value Reference Range Interpretation Comments PT (test code = PT) 12.8 s 12.0-14.7 [facility]zXMZFNWALCM7365-09-66 10:37:00 Test Item Value Reference Range Interpretation Comments INR (test code = INR) 0.97 1 0.85-1.17 [facility]FjstvmzOTNTRCMGAO0143-26-05 10:37:00 Test Item Value Reference Range Interpretation Comments PTT (test code = PTT) 25.0 s 22.9-35.8 [facility] UdibgjsJVWINIQWZC9120-76-79 10:37:0070.5[facility]annHEMATOLOGY 2020-08-29 10:37:0018.8[facility] WhdnduhVEHALGACGM6868-40-86 10:37:009.5[facility] LxiujitXLLLEEVMYB9814-43-59 10:37:000.9[facility] VmlpydkSYRTBKJWQG8623-61-82 10:37:000.3[facility] UdzsdmkEDAESOSJYJ0152-45-69 10:37:004.8[facility] URTPVKHQVQ3850-71-34 10:37:001.3[facility] NdkmaoiWGWZYDQMAZ5683-38-17 10:37:000.6 [facility] CzuggfoFZFXLDSIGZ2519-08-75 10:37:000.1[facility] HermannHEMATOLOGY 2020-08-29 10:37:001+ *ABN*(08/29/20 5:37 AM)[facility] TqiqlnlWQCCGSEECK4733-63-08 10:37:00Not Detected (08/29/20 5:37 AM)[facility]arielFR[facility]AMPUSDIA, GC, TV,PCR, IN FQAGS9523-64-57 15:38:00 Test Item Value Reference Range Interpretation Comments FT (test code = CHTR) Not detected (qualifier Not Detected N value) FT (test code = Not detected (qualifier Not Detected N NGONO) value) FT (test code = TRVG) Not detected (qualifier Not Detected N value) URINALYSIS WITH YJJSCKMZOHG5159-91-62 10:57:00 Test Item Value Reference Range Interpretation Comments Color (test code = UCOLR) Dk. Yellow Clarity (test code = UCLAR) Hazy Glucose (test code = UGLUC) NEGATIVE NEGATIVE N Bilirubin (test code = UBILI) NEGATIVE NEGATIVE N Ketones (test code = UKET) NEGATIVE NEGATIVE N Specific [place] (test code = 1.025 1.005-1.030 A USPGR) [...]
[2021-10-01] MEDS ORDERED: METHYLPREDNISOLONE 125 MG INJ ONE (21:03)
[2021-10-01] MEDS ORDERED: IPRATROPIUM BROM 0.5MG/2.5ML ONE (21:03)
[2021-10-01] MEDS ORDERED: ALBUTEROL 2.5 MG/3 ML NEB SOL ONE (21:03)
[2021-10-01] MEDS ORDERED: MORPHINE 4 MG/ML SYR ONE ×2 (21:19→22:23)
[2021-10-01 21:21] LABS: Urine Blood Negative (Negative); Urine Glucose Negative (Negative); Urine Protein Negative (Negative); Urine Specific Gravity 1.015 (1.005-1.030); Urine pH 5.5 (5.0-7.0)
--- NOTE | 2021-10-01 21:31 | RAD REPORT ---
EXAM DESCRIPTION: Patrick Single View10/01/2021 8:54 pm CLINICAL HISTORY: Shortness of breath COMPARISON: September 20, 2021 FINDINGS: The lungs appear clear of acute infiltrate. The heart is mildly enlarged IMPRESSION: No acute abnormalities displayed
[2021-10-01 21:40] LABS: Absolute Lymphocytes (CBC) 0.6 K/uL (0.7-4.9); Hematocrit 31.9 % (36.0-45.0); Lymphocytes % 9.7 % (15.3-44.8); Protime INR 1.03; RBC Red Blood Cell Count 4.41 M/uL (3.86-4.86)
[2021-10-01 21:47] LABS: Urine Bacteria <20 /HPF (<20); Urine RBC NONE SEEN /HPF (NONE SEEN)
[2021-10-01 21:58] LABS: Albumin 3.3 g/dL (3.4-5.0); Bilirubin Direct 0.1 mg/dL (0-0.2); Bilirubin Total 0.4 mg/dL (0.2-1.0); Magnesium 2.1 mg/dL (1.8-2.4); Potassium 3.3 mmol/L (3.5-5.1); Protein, Total 7.4 g/dL (6.4-8.2); Troponin High Sensitivity 13.7 pg/mL (<58.9)
[2021-10-02] MEDS ORDERED: LIDOCAINE 4% PATCH ONE (00:08)
[2021-10-02] MEDS ORDERED: HYDRALAZINE HCL 20 MG/ML VIAL ONE (00:09)
--- NOTE | 2021-10-02 00:20 | EDPHYS ---
Physician Documentation [facility] Name: Fawn Fleming Age: 66 yrs Sex: Female : 1955 Arrival Date: 10/01/2021 Time: 19:29 Bed 6 Private MD: ED Physician Justus Kolb HPI: 10/01 20:20 This 66 yrs old Female presents to ER via Ambulatory with complaints of Trouble cp Walking, Breathing Difficulty. 20:20 The patient has shortness of breath at rest. cp 20:20 Onset: The symptoms/episode began/occurred today. The patient complains of pain in the cp right and left flank. The pain does not radiate. Onset: The symptoms/episode began/occurred today. Associated signs and symptoms: Pertinent negatives: chest pain, diaphoresis, fever. Severity of symptoms: in the emergency department the symptoms are unchanged despite home interventions. Historical: - Allergies: 19:47 Bactrim DS; ld1 19:47 butorphanol tartrate; ld1 19:47 Fentanyl; ld1 19:47 Reglan; ld1 19:47 Stadol; ld1 19:47 sulfamethoxazole (bulk); ld1 19:47 TRIMETHOPRIM; ld1 - PMHx: 19:47 Anxiety; Migraines; Hypertension; Panic Attacks; Hepatitis; esophageal varices; COPD; ld1 HIV; Chronic pain; Atrial Fib; Bipolar disorder; - PSHx: 19:47 Bilateral shoulder repair; Appendectomy; Cholecystectomy; hernia repair; R wrist SX; ld1 - Immunization history:: Adult Immunizations up to date, Client reports receiving the 2nd dose of the Covid vaccine. - Social history:: Smoking status: Patient reports the use of cigarette tobacco products, Patient/guardian denies using tobacco, the patient reports quitting approximately 2 years ago, Patient/guardian denies using alcohol. ROS: 20:25 Constitutional: Negative for body aches, chills, fever, poor PO intake. cp 20:25 Eyes: Negative for injury, pain, redness, and discharge. cp 20:25 Cardiovascular: Negative for chest pain, edema, palpitations. 20:25 Respiratory: Positive for shortness of breath, wheezing, Negative for 20:25 Abdomen/GI: Negative for abdominal pain, vomiting, diarrhea, constipation. 20:25 Back: Positive for flank pain, bilaterally. 20:25 : Negative for urinary symptoms. Exam: 20:30 Constitutional: The patient appears in no acute distress, alert, awake, cp non-diaphoretic, non-toxic, well developed, well nourished, obese. 20:30 Head/Face: Normocephalic, atraumatic. cp 20:30 Eyes: Periorbital structures: appear normal, Conjunctiva: normal, no exudate, no injection, Sclera: no appreciated abnormality, Lids and lashes: appear normal, bilaterally. 20:30 ENT: External ear(s): are unremarkable, Nose: is normal, Mouth: Lips: moist, Oral mucosa: pink and intact, moist, Posterior pharynx: Airway: no evidence of obstruction, patent, swelling, is not appreciated, erythema, is not appreciated, exudate, is not appreciated. 20:30 Neck: ROM/movement: is normal, is supple, without pain, no range of motions limitations. 20:30 Chest/axilla: Inspection: normal. 20:30 Cardiovascular: Rate: normal, Rhythm: regular, Edema: is not appreciated, JVD: is not appreciated. 20:30 Respiratory: the patient does not display signs of respiratory distress, Respirations: labored breathing, is not present, intercostal retractions, are absent, shallow respirations, are not present, Breath sounds: decreased breath sounds, are not appreciated, stridor, is not appreciated, wheezing: that is mild, is heard diffusely. 20:30 Abdomen/GI: Inspection: obese Bowel sounds: active, all quadrants, Palpation: abdomen is soft and non-tender, in all quadrants. 20:30 Back: pain, that is moderate, of the mid back area, ROM is painful, with all movement, Straight leg raises: of both lower extremities does not illicit pain. 20:42 ECG was reviewed by the Attending Physician. cp Vital Signs: 19:44 BP 200 / 101; Pulse 70; Resp 20; Temp 98.2(O); Pulse Ox 98% on R/A; Weight 95.25 kg; ld1 Height 5 ft. 4 in. (162.56 cm); Pain 9/10; 22:00 BP 171 / 88; Pulse 72; Resp 20 S; Pulse Ox 95% on R/A; as6 05 00:00 BP 199 / 99; Pulse 72; Resp 18 S; Pulse Ox 94% on R/A; as6 10/01 19:44 Body Mass Index 36.05 (95.25 kg, 162.56 cm) ld1 MDM: 10/01 20:14 Patient medically screened. cp 10/02 00:05 Data reviewed: vital signs, nurses notes, lab test result(s), EKG, radiologic studies, cp CT scan, plain films. 00:05 Test interpretation: by ED physician or midlevel provider: ECG, plain radiologic cp studies. Counseling: I had a detailed discussion with the patient and/or guardian regarding: the historical points, exam findings, and any diagnostic results supporting the discharge/admit diagnosis, the presence of at least one elevated blood pressure reading (>120/80) during this emergency department visit, lab results, radiology results, the need for outpatient follow up, a family practitioner, to return to the emergency department if symptoms worsen or persist or if there are any questions or concerns that arise at home. Response to treatment: Shortness of breath and pain improved, and as a result, I will discharge patient. 10/01 20:17 Order name: Basic Metabolic Panel; Complete Time: 22:21 cp 10/01 22:21 Interpretation: Normal except: K 3.3; GLUC 134; BUN 19; GFR 55. cp 10/01 20:17 Order name: CBC with Diff; Complete Time: 22:21 cp 10/01 22:21 Interpretation: Normal except: HGB 10.1; HCT 31.9; MCV 72.5; MCH 22.9; MCHC 31.5; RDW cp 18.0; MPV 7.0; ADE% 87.1; LYM% 9.7; MN% 2.7; LYMA 0.6. 10/01 20:17 Order name: LFT's; Complete Time: 22:21 cp 10/01 20:17 Order name: Magnesium; Complete Time: 22:21 cp 10/01 20:17 Order name: NT PRO-BNP; Complete Time: 22:21 cp 10/01 20:17 Order name: PT-INR; Complete Time: 22:21 cp 10/01 20:17 Order name: Troponin HS; Complete Time: 22:21 cp 10/01 20:17 Order name: XRAY Chest (1 view); Complete Time: 22:21 cp 10/01 20:17 Order name: Lipase; Complete Time: 22:21 cp 10/01 20:17 Order name: Urine Microscopic Only; Complete Time: 22:21 cp 10/01 21:21 Order name: Urine Dipstick-Ancillary; Complete Time: 22:21 EDMS 10/01 23:11 Order name: Stone Protocol EDMS 10/01 20:17 Order name: EKG; Complete Time: 20:17 cp 10/01 20:17 Order name: Cardiac monitoring; Complete Time: 22:17 cp 10/01 20:17 Order name: EKG - Nurse/Tech; Complete Time: 21:06 cp 10/01 20:17 Order name: IV Saline Lock; Complete Time: 21:06 cp 10/01 20:17 Order name: Labs collected and sent; Complete Time: 21:06 cp 10/01 20:17 Order name: O2 Per Protocol; Complete Time: 21:06 cp 10/01 20:17 Order name: O2 Sat Monitoring; Complete Time: 21:06 cp 10/01 20:17 Order name: Urine Dipstick-Ancillary (obtain specimen); Complete Time: 21:24 cp EC/12 20:42 Rate is 64 beats/min. Rhythm is regular. RI interval is normal. QRS interval is normal. cp QT interval is normal. Interpreted by me. Reviewed by me. Administered Medications: 21:06 Drug: Albuterol 2.5 mg Route: Inhalation; as6 23:43 Follow up: Response: No adverse reaction as6 21:06 Drug: AtroVENT (ipratropium) Aerosol 0.5 mg Route: Inhalation; as6 23:43 Follow up: Response: No adverse reaction as6 21:06 Drug: SOLU-Medrol (methylPrednisoLONE) 125 mg Route: IVP; Site: left wrist; as6 23:43 Follow up: Response: No adverse reaction as6 21:18 Drug: morphine 4 mg Route: IVP; Site: left wrist; as6 23:43 Follow up: Response: No adverse reaction; RASS: Alert and Calm (0) as6 22:54 Drug: morphine 4 mg Route: IVP; Site: left forearm; kd3 23:43 Follow up: Response: No adverse reaction; RASS: Alert and Calm (0) as6 10/02 00:10 Drug: Lidoderm Patch 5 % (700 mg/patch) 1 patches {Note: cut patch into two and placed kd3 on either flank .} Route: Topical; Site: affected area; 00:30 Follow up: Response: No adverse reaction as6 00:10 Drug: hydrALAZINE 10 mg Route: IVP; Site: left forearm; kd3 00:30 Follow up: Response: No adverse reaction as6 Disposition Summary: 10/02/21 00:19 Discharge Ordered Location: Home thomas Problem: new thomas Symptoms: have improved thomas Condition: Stable thomas Diagnosis - Low back pain thomas - COPD/ Chronic obstructive pulmonary disease with (acute) exacerbation thomas Followup: cp - With: Private Physician - When: 2 - 3 days - Reason: Recheck today's complaints Discharge Instructions: - Discharge Summary Sheet cp - Chronic Back Pain cp - Chronic Obstructive Pulmonary Disease Exacerbation cp - Heat Therapy cp - Back Exercises cp Forms: - Medication Reconciliation Form thomas - Thank You Letter thomas - Antibiotic Education thomas - Prescription Opioid Use thomas Prescriptions: - Lidoderm 5 % Topical adhesive patch,medicated - apply 1 patch by TOPICAL route once daily; 1 box; Refills: 0, Product Selection cp Permitted - Cyclobenzaprine 10 mg Oral Tablet - take 1 tablet by ORAL route every 8 hours As needed; 20 tablet; Refills: 0, cp Product Selection Permitted - Prednisone 20 mg Oral Tablet - take 2 tablets by ORAL route once daily for 5 days; 10 tablet; Refills: 0, cp Product Selection Permitted - Tylenol-Codeine #3 300 mg-30 mg Oral - take 2 tablet by ORAL route every 8-10 hours As needed; 12 tablet; Refills: 0, cp Product Selection Permitted Signatures: Dispatcher [employer] EDJustus Perrin MD MD cha Page, Corey, PA PA cp Dibbern, Lauren, RN RN ld1 Dayo Ko RN RN as6 Shereen Marinelli RN RN kd3
--- NOTE | 2021-10-02 00:20 | ER ---
Nurse's Notes [facility] Name: Fawn Fleming Age: 66 yrs Sex: Female : 1955 Arrival Date: 10/01/2021 Time: 19:29 Bed 6 Private MD: Diagnosis: Low back pain;COPD/ Chronic obstructive pulmonary disease with (acute) exacerbation Presentation: 10/01 19:44 Chief complaint: Patient states: SOB since noon, SpO2 98% RA upon arrival to ER. TYRONE ld1 flank pain "since 1 hour ago.". Coronavirus screen: At this time, the client does not indicate any symptoms associated with coronavirus-19. Ebola Screen: No symptoms or risks identified at this time. No acute neurological deficit is noted. 19:44 Method Of Arrival: Ambulatory ld1 19:47 Initial Sepsis Screen: Does the patient meet any 2 criteria? No. Patient's initial ld1 sepsis screen is negative. Does the patient have a suspected source of infection? No. Patient's initial sepsis screen is negative. Risk Assessment: Do you want to hurt yourself or someone else? Patient reports no desire to harm self or others. Onset of symptoms was October 01, 2021. 19:47 Acuity: BLAYNE 3 ld1 Triage Assessment: 19:47 General: Appears in no apparent distress. comfortable, Behavior is calm, cooperative, ld1 appropriate for age. Pain: Complains of pain in low back area Pain does not radiate. Pain currently is 9 out of 10 on a pain scale. Quality of pain is described as throbbing, Pain began gradually. EENT: No signs and/or symptoms were reported regarding the EENT system. Neuro: Level of Consciousness is awake, alert, obeys commands, Oriented to person, place, time, situation. Cardiovascular: Capillary refill < 3 seconds Patient's skin is warm and dry. Respiratory: Airway is patent Respiratory effort is even, labored, Respiratory pattern is regular, symmetrical. GI: Abdomen is round non-distended. : No signs and/or symptoms were reported regarding the genitourinary system. Derm: No signs and/or symptoms reported regarding the dermatologic system. Musculoskeletal: No signs and/or symptoms reported regarding the musculoskeletal system. Historical: - Allergies: 19:47 Bactrim DS; ld1 19:47 butorphanol tartrate; ld1 19:47 Fentanyl; ld1 19:47 Reglan; ld1 19:47 Stadol; ld1 19:47 sulfamethoxazole (bulk); ld1 19:47 TRIMETHOPRIM; ld1 - PMHx: 19:47 Anxiety; Migraines; Hypertension; Panic Attacks; Hepatitis; esophageal varices; COPD; ld1 HIV; Chronic pain; Atrial Fib; Bipolar disorder; - PSHx: 19:47 Bilateral shoulder repair; Appendectomy; Cholecystectomy; hernia repair; R wrist SX; ld1 - Immunization history:: Adult Immunizations up to date, Client reports receiving the 2nd dose of the Covid vaccine. - Social history:: Smoking status: Patient reports the use of cigarette tobacco products, Patient/guardian denies using tobacco, the patient reports quitting approximately 2 years ago, Patient/guardian denies using alcohol. Screenin:07 Abuse screen: Denies threats or abuse. Denies injuries from another. Nutritional kd3 screening: No deficits noted. Tuberculosis screening: No symptoms or risk factors identified. Fall Risk IV access (20 points). Assessment: 23:42 Reassessment: Patient appears in no apparent distress at this time. as6 Vital Signs: 19:44 BP 200 / 101; Pulse 70; Resp 20; Temp 98.2(O); Pulse Ox 98% on R/A; Weight 95.25 kg; ld1 Height 5 ft. 4 in. (162.56 cm); Pain 9/10; 22:00 BP 171 / 88; Pulse 72; Resp 20 S; Pulse Ox 95% on R/A; as6 0513 00:00 BP 199 / 99; Pulse 72; Resp 18 S; Pulse Ox 94% on R/A; as6 05 19:44 Body Mass Index 36.05 (95.25 kg, 162.56 cm) ld1 ED Course: 10/01 19:29 Patient arrived in ED. kz 19:47 Triage completed. ld1 19:47 Arm band placed on right wrist. ld1 20:06 Justus Neil PA is PHCP. cp 20:06 Justus Kolb MD is Attending Physician. cp 20:09 Dayo Ko, ASHLEY is Primary Nurse. as6 20:56 XRAY Chest (1 view) In Process Unspecified. EDMS 21:03 Inserted saline lock: 22 gauge in left forearm, using aseptic technique. Blood oe collected. 23:08 Patient has correct armband on for positive identification. Placed in gown. kd3 23:53 Stone Protocol In Process Unspecified. EDMS 10/02 00:29 No provider procedures requiring assistance completed. IV discontinued, intact, as6 bleeding controlled, No redness/swelling at site. Pressure dressing applied. Administered Medications: 10/01 21:06 Drug: Albuterol 2.5 mg Route: Inhalation; as6 23:43 Follow up: Response: No adverse reaction as6 21:06 Drug: AtroVENT (ipratropium) Aerosol 0.5 mg Route: Inhalation; as6 23:43 Follow up: Response: No adverse reaction as6 21:06 Drug: SOLU-Medrol (methylPrednisoLONE) 125 mg Route: IVP; Site: left wrist; as6 23:43 Follow up: Response: No adverse reaction as6 21:18 Drug: morphine 4 mg Route: IVP; Site: left wrist; as6 23:43 Follow up: Response: No adverse reaction; RASS: Alert and Calm (0) as6 22:54 Drug: morphine 4 mg Route: IVP; Site: left forearm; kd3 23:43 Follow up: Response: No adverse reaction; RASS: Alert and Calm (0) as6 10/02 00:10 Drug: Lidoderm Patch 5 % (700 mg/patch) 1 patches {Note: cut patch into two and placed kd3 on either flank .} Route: Topical; Site: affected area; 00:30 Follow up: Response: No adverse reaction as6 00:10 Drug: hydrALAZINE 10 mg Route: IVP; Site: left forearm; kd3 00:30 Follow up: Response: No adverse reaction as6 Medication: 10/01 23:08 VIS not applicable for this client. kd3 Outcome: 10/02 00:19 Discharge ordered by . thomas 00:29 Discharged to home ambulatory. as6 00:29 Condition: stable 00:29 Discharge instructions given to patient, Instructed on discharge instructions, follow up and referral plans. medication usage, Demonstrated understanding of instructions, follow-up care, medications, Prescriptions given X 4. 00:30 Patient left the ED. as6 Signatures: Dispatcher [employer] EDKY Justus Kolb MD MD cha Page, Corey, PA PA cp Espinosa, Orlando oe Dibbern, Wanda, RN RN ld1 Dayo Ko, RN RN as6 Shereen Marinelli, RN RN kd3 Ava Rossi
[2021-10-02 08:00] VITALS: TEMP 98.2
[2021-10-02 08:03] VITALS: BP 199/99; O2SAT 94
--- NOTE | 2021-10-02 11:12 | RAD REPORT ---
EXAM DESCRIPTION: CT - Stone Protocol - 10/02/2021 1:48 am CLINICAL HISTORY: 66 years Female flank pain TECHNIQUE: Contiguous axial images obtained through the abdomen and pelvis without IV contrast. Daysi nal and sagittal reformatted images provided. This CT exam was performed according to our departmental dose-optimization program, which includes on e or more of the following dose reduction techniques: automated exposure control, adjustment of the m A and/or kV according to patient size, and/or use of iterative reconstruction technique. COMPARISON: 06/28/2021 FINDINGS: Single punctate nonobstructing calculus in the lower pole of the right kidney. There are n o other renal, ureteral, or bladder calculi. There is no hydronephrosis or perinephric stranding on e ither side. Several simple bilateral renal cysts again noted. These do not require follow-up There is no bowel inflammation, obstruction, free intraperitoneal air, or ascites. The appendix is no t identified and may be surgically absent. No inflammatory changes in its expected location. Minimal bibasilar atelectasis. Prior cholecystectomy without biliary dilatation. The unenhanced liver, pancreas, spleen, adrenal glands, uterus, adnexa, and urinary bladder are robe l. Atherosclerosis without abdominal aortic aneurysm or retroperitoneal hemorrhage. Mild chronic degener ative changes throughout the spine without acute fracture. IMPRESSION: No urinary obstruction. Single nonobstructing intrarenal calculus on the right. No acute abdominal or pelvic findings. Electronically signed by: Ivon Harman MD 10/02/2021 12:07 AM CDT Due to temporary technical issues with the PACS/Fluency reporting system, reports are being signed by the in house radiologist without review as a courtesy to ensure prompt reporting. The interpreting r adiologist is fully responsible for the content of the report.
--- NOTE | 2021-10-03 14:55 | EKG ---
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
== END 2021-10-02 00:30 | disposition home or self-care (01) ==
LOC: ER 19:26
DX: J44.1 Chronic obstructive pulmonary disease with (acute) exacerbation (principal); M54.50 Low back pain, unspecified; Z20.822 Contact with and (suspected) exposure to COVID-19; I10 Essential (primary) hypertension; F31.9 Bipolar disorder, unspecified; Z72.0 Tobacco use; Z21 Asymptomatic human immunodeficiency virus [HIV] infection status; Z88.1 Allergy status to other antibiotic agents; Z88.2 Allergy status to sulfonamides; Z88.5 Allergy status to narcotic agent; Z88.8 Allergy status to other drugs, medicaments and biological substances
CPT/HCPCS: 93005; 85025; 80048; 36415; 83735; 85610; 80076; 84484; 83690; 83880; 76377; 74176; 71045; 99284; J0360; J2930; 81003; 81015

== ENCOUNTER 2021-10-03 13:45 | Emergency (ER) | payer OTHER ==
--- OUTSIDE RECORDS SUMMARY | 2021-10-03 13:54 | XMS REPORT | Continuity of Care Document ---
:1955 Author Organization [facility] t Address [address] [place] [address] Care Team Providers Name Role Phone Francisco Rahman Primary Care Physician Ashely Attending Clinician Unavailable JENNY Attending Clinician Unavailable SELF Attending Clinician Unavailable Ronald DHILLON Attending Clinician [facility] Attending Clinician Unavailable Ap JENKINS Attending Clinician Doctor Unassigned, Name Attending Clinician Unavailable Yazmin JENKINS Attending Clinician Luisana Maharaj NP Attending Clinician Prabhu SANCHEZ Attending Clinician Unavailable Devin COMPUTER PROJECT MANAGER, R Attending Clinician Clark SANCHEZ Attending Clinician Unavailable Diana SANCHEZ Attending Clinician Unavailable Remigio JENKINS V. Attending Clinician HEMATPOUR Attending Clinician Unavailable DO SYL Attending Clinician Unavailable Kristen Rahman Admitting Clinician Unavailable Ashely Admitting Clinician Unavailable YAZMIN Admitting Clinician Unavailable DO SYL Admitting Clinician Unavailable Payers Payer Name Policy Type Policy Number Effective Date Expiration Date S gabino [facility] [id number] 2012 [employer] 00:00:00 [employer] [id number] 2019 BEHAVIORAL 00:00:00 SOLUTIONS MEDICAID OF [place] [id number] 2020 00:00:00 Problems Condition Condition Condition Status Onset Resolution Last Treating Co mments Source Name Details Category Date Date Treatment Clinician Date Gastropare Gastropare Disease Active Overview : Methodi sis sis 4-[address] 00:00: [facility] 00 note l might be different from the original. Added automatic ally from request for surgery [id number] Dysphagia Dysphagia Disease Active Overview: Methodi 4-[address] 00:00: [facility] this [facility] 00 note l might be different from the original. Added automatic ally from request for surgery [id number] CCL / EPS Diagnosis Active 2020-10-15 Memoria PVI 3-30 17:07:00 l ABLATION CCL / 00:00: Marty W/ CARTO / EPS PVI 00 GA / T ABLATION W/ CARTO / GA / T Active 08/19/2020 [facility] Food Food Disease Active 2019-05 [...] (BMI 2-19 ity of 30-39.9) 30-39.9) 00:00: [facility] Anemia Anemia Disease Active 2014-05 Univers 0-03 ity of 00:00: [place] [facility] Hypovolemi Hypovolemi Disease Active 2014-05 U nivers a due to a due to 0-02 ity of hemorrhage hemorrhage 00:[place] [facility] Chest pain Chest pain Disease Active 2014-05 U nivers 0- ity of 00:00: [place] [facility] 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:00: [place] shoulder shoulder 00 Medica l arthroplas arthroplas Br anch ty ty Posttrauma Posttrauma Disease Active U nivers tic stress tic stress 09-27 it y of disorder disorder 00:00: [place] [facility] 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 00:00: [place] virus virus Medical (HIV) (HIV) Branch disease disease Bipolar 2 Bipolar 2 Disease Active Uni vers disorder disorder 11-18 ity of 00:00: [place] [facility] Chronic Chronic Disease Active Univers hepatitis hepatitis 11-18 ity of C C 00:00: [place] [facility] Hypertensi Hypertensi Disease Active U nivers on on 11-18 ity of 00:00: [place] [facility] Allergies, Adverse Reactions, Alerts Allergy Allergy Status Severity Reaction(s) Onset Inactive Treating Comm ents Source Name Type Date Date Clinician sulfamet DA Active SV N/V [facility] hoxazole 1-25 Clear 00:00: Garcia 00 [facility] trimetho DA Active SV [facility] prim 1-25 Clear 00:00: Garcia [facility] codeine DA Active SV N/V [facility] 1-25 Clear 00:00: Garcia [facility] Metoclop Propensi Active [place] ramide [...] Date Stop Date Source Natural father Hypertension [facility] Natural father [facility] Natural father [facility] Natural father Other - see comments [facility] Social History Social Habit Start Date Stop Date Quantity Comments [facility] Alcohol Comment History of tobacco Smoker Method ist use Hospital History SDOH [facility]ism Alcohol Frequency Hospita l History SDOH [facility] Alcohol Std Drinks Hospit al History SDOH [facility] Alcohol Binge Hospital Exposure to Not sure University of SARS-CoV-2 (event) [facility] Alcohol intake 2021-07-14 2021-07-14 Ex-drinker [facility] 00:00:00 00:00:00 (finding) Tobacco use and 2020-10-31 2020-10-31 Smokeless tobacco [facility] exposure 00:00:00 00:00:00 non-user Cigarettes smoked 2020-09-05 2020-09-[address] current (pack per 00:00:00 00:00:00 Hospita l day) - Reported Cigarette 2020-09-05 2020-09-05 [facility] pack-years 00:00:00 00:00:00 Hospital Tobacco Comment 2015-02-14 2015-02-14 Smokes approx 1-2 Un iversity of 00:00:00 00:00:00 cigarettes per [place] [facility] porfirio day when she Branch smokes Sex Ass[birth year] At [birth year] [facility] 00:00:00 00:00:00 Smoking Status Start Date Stop Date Source Former smoker 2020-08-06 00:00:00 2020-08-06 00:00:00 [facility] Medications Ordered Filled Start Stop Current Ordering Indication Dosage Frequency Signature Comments Components Source Medication Medication Date Date Medication? Clinician (SIG) Name Name buPROPion Yes [id number] 150mg Take 1 U nivers XL 4-12 tablet by ity of (WELLBUTRIN 00:00: mouth [place] XL) 150 mg 00 daily. Medical 24 hr Branch tablet busPIRone Yes [id number] 30mg Take 1 Un matt 30 mg 4-12 tablet by ity of tablet 00:00: mouth 2 [place] 00 (two) Medical times Branch daily. SERTraline Yes [id number] 200mg Take 2 Univers 100 mg 4-12 tablets by ity of tablet 00:00: mouth [place] 00 daily. Medical Branch raltegravir Yes [id number] 400mg Take 1 Univers (ISENTRESS) 3-28 tablet by ity of 400 mg 00:00: mouth 2 [place] tablet 00 (two) Medical times Branch daily. LORazepam 1 Yes [id number] 1mg Take 1 Univers mg tablet 3-21 tablet by ity o f 00:00: mouth 3 [place] 00 (three) Medical times Branch daily as needed (anxiety). raltegravir Yes 400mg Q.5D Take 400 U T (Isentress) 2-22 mg by Health 400 MG 09:09: mouth 2 tablet 52 (two) times a day. LORazepam 1 2021- No [id number] 1mg Take 1 Univers mg tablet 2-21 [...] times a tablet day. buPROPion 2021- No [id number] 150mg Take 1 Univers XL -24 -12 tablet by ity of (WELLBUTRIN 00:00[place] XL[place] 150 mg 00 :00 daily. Medical 24 hr Branch tablet busPIRone 2021- No [id number] 30mg Take 1 U nivers 30 mg 24 -12 tablet by ity of tablet 00:00: 00:00 mouth 2 [place] 00 :00 (two) Medical times Branch daily. SERTraline 2021- No [id number] 200mg Take 2 Univers 100 mg 24 -12 tablets by ity of tablet 00:00: 00:00 mouth [place] 00 :00 daily. Medical Branch emtricitabi Yes [id number] Take one Univers ne-tenofovi 1-20 po daily ity of r alafen 00:00: [place] (DESCOVY) 00 Medical tablet Branch raltegravir 2021- No [id number] 400mg Take 1 Univers (ISENTRESS) -12 03-28 tablet by it y of 400 mg 00:00: 00:00 mouth 2 [place] tablet 00 :00 (two) Medical times Branch daily. metoprolol Yes [id number] Take 1 [facility] tartrate 7-26 tablet Health (Lopressor) 00:00: (100 mg 100 MG 00 total) by tablet mouth 2 (two) times a day AND 0.5 tablets (50 mg total) every night. metoprolol Yes [id number] Take 1 [facility] tartrate 7-26 tablet Health [...] (affected area in groin) hydrALAZINE Yes 50mg Q.[id number] Take 50 mg Methodi (APRESOLINE 7-[id number] ) 50 MG [...] Hospita tablet 25 daily. l nystatin-tr Yes [id number] Apply to [facility] 11-25 area(s) 3 ity of cream 00:00: (three) [place] 00 times Medical daily. Branch budesonide- 2020- No 1{puff} QD Inhale 1 Methodi formoteroL 11-14 06-[address] (SYMBICORT) 14:37: 00:00 morning. H ospita 160-4.5 02 :00 l mcg/actuati on inhaler hydrALAZINE Yes [id number] 50mg Q.[id number] Take 1 UT (Apresoline 6-11 [id number] tablet (50 Health ) 50 MG 00:00: 3D mg total) tablet 00 by mouth 3 (three) times a day. hydrALAZINE Yes [id number] 50mg Q.[id number] Take 1 [facility] (Apresoline 6-11 [id number] tablet (50 Health ) 50 MG 00:00: [...] % 00:00: ointment 00 nystatin 2020- No [id number] Q.25D Take 5 mL Methodi (MYCOSTATIN 10-06 [...] ia 4-10 (Same as: l 14:00: Norvasc) [place] 00 emtricitabi No Notes: Caesar lisa ne 200 MG / 4-10 (Same as: l tenofovir 14:00: Descovy) Herm ariel alafenamide 00 Non-formul 25 MG Oral nancy Tablet [Descovy] pantoprazol No Notes: Caesar lisa e 4-10 Tablet l 14:00: should not [place] 00 be chewed or crushed. (Same as: Protonix) Amiodarone No Notes: Memor ia 4-10 (Same as: l 14:00: Cordarone) Amlodipine No Notes: Memor ia 4-10 (Same as: l 14:00: Norvasc) [place] 00 emtricitabi No Notes: Caesar lisa ne [...] e 4-10 Tablet l 14:00: should not [place] 00 be chewed or crushed. (Same as: [...] e 4-10 Tablet l 14:00: should not [place] 00 be chewed or crushed. (Same as: Protonix) Amiodarone No Notes: Memor ia 4-10 (Same as: l 14:00: Cordarone) Marty 00 Amlodipine No Notes: Memor ia 4-10 (Same as: l 14:00: Norvasc) [place] 00 emtricitabi No Notes: Caesar lisa ne 200 MG / 4-10 (Same as: l tenofovir 14:00: Descovy) Herm ariel alafenamide 00 Non-formul 25 MG Oral nancy Tablet [Descovy] Sertraline No Notes: Memor ia 4-10 (Same as: l 14:00: Zoloft) [place] 00 pantoprazol No Notes: Caesar lisa e 4-10 Tablet l 14:00: should not [place] 00 be chewed or crushed. (Same as: Protonix) Amiodarone No Notes: Memor ia 4-10 (Same as: l 14:00: Cordarone) Marty Amlodipine No Notes: Memor ia 4-10 (Same as: l 14:00: Norvasc) [place] emtricitabi No Notes: Caesar lisa ne 200 MG / 4-10 (Same as: l tenofovir 14:00: Descovy) Herm ariel alafenamide 00 Non-formul 25 MG Oral nancy Tablet [Descovy] Sertraline No Notes: Memor ia 4-10 (Same as: l 14:00: Zoloft) Marty 00 pantoprazol No Notes: Caesar lisa e 4-10 Tablet l 14:00: should not [place] 00 be chewed or crushed. (Same as: Protonix) Amiodarone No Notes: Memor ia 4-10 (Same as: l 14:00: Cordarone) [place] 00 Amlodipine No Notes: Memor ia 4-10 (Same as: l 14:00: Norvasc) [place] 00 emtricitabi No Notes: Caesar lisa ne 200 MG / 4-10 (Same as: l tenofovir 14:00: Descovy) Herm ariel alafenamide 00 Non-formul 25 MG Oral nancy Tablet [Descovy] Sertraline No Notes: Memor ia 4-10 (Same as: l 14:00: Zoloft) [place] 00 pantoprazol No Notes: Caesar lisa e [...] M emoria 4-10 interfere l 02:00: w/enteral [place] feeds - Take 1 hr before or [...] 0.9% 4-10 (Same as: l 02:00: BD [place] Posiflush) Eliquis No Notes: Memoria 4-10 Same [...] Memoria 4-10 Same as: l 02:00: Eliquis [place] 00 Hydralazine No Notes: Caesar lisa Hydrochlori 4-10 (Same as: l de 50 MG 02:00: Apresoline Her mitchell Oral Tablet 00 ) May interfere w/enteral feedings Take With Food Sucralfate No Notes: May M emoria 4-10 interfere l 02:00: w/enteral [place] 00 feeds - Take 1 hr before or 2 hr after antacids, dairy pdt, meals & minerals - On empty stomach. For patients unable to swallow tablet, dissolve in 10mL - 30mL of water or juice and stir before giving. (Same As: Carafate) Saline No Notes: Memoria Flush 0.9% 4-10 (Same as: l 02:00: BD [place] 00 Posiflush) Eliquis No Notes: Memoria 4-10 Same as: l 02:00: Eliquis [place] Hydralazine No Notes: Caesar lisa Hydrochlori 4-10 (Same as: l de 50 MG 02:00: Apresoline Her mitchell Oral Tablet 00 ) May interfere w/enteral feedings Take With Food Sucralfate No Notes: May M emoria 4-10 interfere l 02:00: w/enteral [place] 00 feeds - Take 1 hr before or 2 hr after antacids, dairy pdt, meals & minerals - On empty stomach. For patients unable to swallow tablet, dissolve in 10mL - 30mL of water or juice and stir before giving. (Same As: Carafate) Saline No Notes: Memoria Flush 0.9% 4-10 (Same as: l 02:00: BD [place] 00 Posiflush) Eliquis No Notes: Memoria 4-10 Same as: l 02:00: Eliquis [place] Hydralazine No Notes: Caesar lisa Hydrochlori 4-10 (Same as: l de 50 MG 02:00: Apresoline Her mitchell Oral Tablet 00 ) May interfere w/enteral feedings Take With Food Sucralfate No Notes: May M emoria 4-10 interfere l 02:00: w/enteral [place] 00 feeds - Take 1 hr before or 2 hr after antacids, dairy pdt, meals & minerals - On empty stomach. For patients unable to swallow tablet, dissolve in 10mL - 30mL of water or juice and stir before giving. (Same As: Carafate) Saline No Notes: Memoria Flush 0.9% 4-10 (Same as: l 02:00: BD [place] 00 Posiflush) Eliquis No Notes: Memoria 4-10 Same as: l 02:00: Eliquis [place] 00 Hydralazine No Notes: Caesar lisa Hydrochlori [...] not exceed l #3 00:12: 4gm/day of [place] 00 acetaminop hen. (Same as: Tylenol with Codeine # 3) acetaminoph No Notes: Do M emoria en-codeine 4-10 not exceed l #3 00:12: 4gm/day of Marty acetaminop hen. (Same as: Tylenol with Codeine # 3) acetaminoph No Notes: Do M emoria en-codeine 4-10 not exceed l #3 00:12: 4gm/day of [place] acetaminop hen. (Same as: Tylenol with Codeine # 3) acetaminoph No Notes: Do M emoria en-codeine 4-10 not exceed l #3 00:12: 4gm/day of [place] acetaminop hen. (Same as: Tylenol with Codeine [...] oria 4-09 tab, l 22:00: Route: PO, [place] Drug form: TAB, BID, Dosing Weight 97.273, kg, Start date: 08/29/20 17:00:00 CDT, Duration: 30 day, Stop date: 09/28/20 9:00:00 CDT metoprolol 2020-0 No 100 mg, 1 Me moria tartrate - tab, l 22:00: Route: PO, [place] 00 Drug form: TAB, BID, Dosing Weight [...] tartrate 4-09 tab, l 22:00: Route: PO, [place] 00 Drug form: TAB, BID, Dosing Weight [...] oria 4-09 tab, l 22:00: Route: PO, [place] 00 Drug form: TAB, BID, Dosing Weight [...] tartrate 4-09 tab, l 22:00: Route: PO, [place] Drug form: TAB, BID, Dosing Weight 97.273, [...] oria 4-09 tab, l 22:00: Route: PO, [place] 00 Drug form: TAB, BID, Dosing Weight [...] oria -09 tab, l 22:00: Route: PO, [place] 00 Drug form: TAB, BID, Dosing Weight 97.273, kg, Start date: 08/29/20 17:00:00 CDT, Duration: 30 day, Stop date: 09/28/20 9:00:00 CDT metoprolol 1-0 No 100 mg, 1 Me moria tartrate 4-09 tab, l 22:00: Route: PO, [place] 00 Drug form: TAB, BID, Dosing Weight [...] Notes: Memoria 4-09 (Same l 17:07: as:MORPhin [place] 00 e Sulfate) Morphine No Notes: Memoria 4-09 (Same l 17:07: as:MORPhin [place] 00 e Sulfate) Morphine No Notes: Memoria 4-09 (Same l 17:07: as:MORPhin [place] 00 e Sulfate) Morphine No Notes: Memoria 4-09 (Same l 17:07: as:MORPhin [place] 00 e Sulfate) Morphine No Notes: Memoria 4-09 (Same l 17:07: as:MORPhin [place] 00 e Sulfate) Morphine No Notes: Memoria 4-09 (Same l 17:07: as:MORPhin [place] 00 e Sulfate) Morphine No Notes: Memoria 4-09 (Same l 17:07: as:MORPhin [place] 00 e Sulfate) buPROPion No 150 mg, [...] 08-29 Drug form: l 15:40: INJ, ONCE, [place] 00 Stop date: 08/29/20 10:40:00 CDT neostigmine [...] tab, 0 coated Refill(s), tablet Pharmacy: [facility] 149, 162.56, cm, 08/29/20 5:30:00 CDT, Height, 97.273, kg, 08/29/20 5:30:00 CDT, Weight pantoprazol 2021-0 Yes 40 mg = 1 M emoria e 40 mg 4-09 tab, PO, l oral 15:27: Daily, # [place] enteric 00 30 tab, 0 coated Refill(s), tablet Pharmacy: [facility] 149, 162.56, cm, 08/29/20 5:30:00 CDT, Height, 97.273, kg, 08/29/20 5:30:00 CDT, Weight pantoprazol 2021-0 Yes 40 mg = 1 M emoria e 40 mg 4-09 tab, PO, l oral 15:27: Daily, # Marty enteric 00 30 tab, 0 coated Refill(s), tablet [facility], 162.56, cm, 08/29/20 5:30:00 CDT, Height, 97.273, kg, 08/29/20 5:30:00 CDT, Weight pantoprazol 1-0 Yes 40 mg = 1 M emoria e 40 mg 4-09 tab, PO, l oral 15:27: Daily, # [place] enteric 00 30 tab, 0 coated Refill(s), tablet [facility], 162.56, cm, 08/29/20 5:30:00 CDT, Height, 97.273, kg, 08/29/20 5:30:00 CDT, Weight pantoprazol 2021-0 Yes 40 mg = 1 M emoria e 40 mg 4-09 tab, PO, l oral 15:27: Daily, # [place] enteric 00 30 tab, 0 coated Refill(s), tablet [facility], 162.56, cm, 08/29/20 5:30:00 CDT, Height, 97.273, kg, 08/29/20 5:30:00 CDT, Weight pantoprazol 2021-0 Yes 40 mg = 1 M emoria e 40 mg 4-09 tab, PO, l oral 15:27: Daily, # [place] enteric 00 30 tab, 0 coated Refill(s), tablet [facility] 149, 162.56, cm, 08/29/20 5:30:00 CDT, Height, 97.273, kg, 08/29/20 5:30:00 CDT, Weight pantoprazol 2020-0 Yes 40 mg = 1 M emoria e 40 mg 4-09 tab, PO, l oral 15:27: Daily, # [place] enteric 00 30 tab, 0 coated Refill(s), tablet Pharmacy: [facility] 149, 162.56, cm, 08/29/20 5:30:00 [...] nn 00 tab, 0 Refill(s), Pharmacy: [facility] 149, 162.56, cm, 08/29/20 5:30:00 CDT, Height, 97.273, kg, 08/29/20 5:30:00 CDT, Weight pantoprazol 2020-0 No 40 mg = 1 M emoria e 40 mg 4-09 tab, PO, l oral 15:26: Daily, # [place] enteric 00 30 tab, 0 coated Refill(s) tablet sucralfate 2020-0 Yes 1 gm = 1 Mem oria 1 g oral 4-09 tab, PO, l tablet 15:26: Q12H, # 28 Skylar nn 00 tab, 0 Refill(s), Pharmacy: [place] [id number], 162.56, cm, 08/29/20 5:30:00 CDT, Height, 97.273, [...] nn 00 tab, 0 Refill(s), Pharmacy: [facility] 149, 162.56, cm, 08/29/20 5:30:00 [...] nn 00 tab, 0 Refill(s), Pharmacy: [facility] 149, 162.56, cm, 08/29/20 5:30:00 CDT, Height, 97.273, kg, 08/29/20 5:30:00 CDT, Weight pantoprazol 2020-0 No 40 mg = 1 M emoria e 40 mg 4-09 tab, PO, l oral 15:26: Daily, # [place] enteric 00 30 tab, 0 coated Refill(s) tablet sucralfate 2020-0 Yes 1 gm = 1 Mem oria 1 g oral 4-09 tab, PO, l tablet 15:26: Q12H, # 28 Skylar nn 00 tab, 0 Refill(s), Pharmacy: [place] [id number], 162.56, cm, 08/29/20 5:30:00 CDT, Height, 97.273, kg, 08/29/20 5:30:00 CDT, Weight pantoprazol 2020-0 No 40 mg = 1 M emoria e 40 mg 4-09 tab, PO, l oral 15:26: Daily, # [place] enteric 00 30 tab, 0 coated Refill(s) tablet sucralfate 2020-0 Yes 1 gm = 1 Mem oria 1 g oral 4-09 tab, PO, l tablet 15:26: Q12H, # 28 Skylar nn 00 tab, 0 Refill(s), Pharmacy: [facility] 149, 162.56, cm, 08/29/20 5:30:00 [...] nn 00 tab, 0 Refill(s), Pharmacy: [facility] 149, 162.56, cm, 08/29/20 5:30:00 CDT, Height, 97.273, kg, 08/29/20 5:30:00 CDT, Weight Saline No Notes: Memoria Flush 0.9% 4-09 (Same as: l 15:25: BD [place] 00 Posiflush) Lorazepam No Notes: Memori a 4-09 (Same as: l 15:25: Ativan) Saline No Notes: Memoria Flush 0.9% 4-09 (Same as: l 15:25: BD [place] 00 Posiflush) Lorazepam No Notes: Memori a 4-09 (Same as: l 15:25: Ativan) Saline No Notes: Memoria Flush 0.9% 4-09 (Same as: l 15:25: BD Marty 00 Posiflush) Saline No Notes: Memoria Flush 0.9% 4-09 (Same as: l 15:25: BD [place] 00 Posiflush) Lorazepam No Notes: Memori a 4-09 (Same as: l 15:25: Ativan) [place] 00 Lorazepam No Notes: Memori a 4-09 (Same as: l 15:25: Ativan) Saline No Notes: Memoria Flush 0.9% 4-09 (Same as: l 15:25: BD [place] 00 Posiflush) Lorazepam No Notes: Memori a [...] Drug form: l mg + 15:00: INJ, [place] 00 Dosing Weight 97.3, kg, Start date: [...] Memori a 08-29 Route: l 14:01: IVP, [place] 00 Q5Min, Dosing Weight 97.273, kg, PRN Elevated BP, Start date: 08/29/20 9:01:00 CDT, Duration: 5 doses or times, Stop date: Limited # of times Acetaminoph 2020-0 No 1,000 mg, M emoria en 08-29 Route: PO, l 14:01: Drug form: [place] 00 TAB, ONCE, Dosing Weight 97.273, kg, [...] oria ne 08-29 Route: l 14:01: IVP, [place] 00 Q5Min, Dosing Weight 97.273, kg, PRN [...] Memori a 08-29 Route: l 14:01: IVP, [place] 00 Q5Min, Dosing Weight 97.273, kg, PRN Elevated BP, Start date: 08/29/20 9:01:00 CDT, Duration: 5 doses or times, Stop date: Limited # of times Acetaminoph 1-0 No 1,000 mg, M emoria en 08-29 Route: PO, l 14:01: Drug form: [place] 00 TAB, ONCE, Dosing Weight 97.273, kg, [...] oria ne 08-29 Route: l 14:01: IVP, [place] 00 Q5Min, Dosing Weight 97.273, kg, PRN [...] ia 08-29 Route: l 14:01: IVP, ONCE, [place] 00 Dosing Weight 97.273, kg, PRN Nausea [...] ia 08-29 Route: l 14:01: IVP, ONCE, [place] 00 Dosing Weight 97.273, kg, PRN Nausea [...] oria ne 08-29 Route: l 14:01: IVP, [place] 00 Q5Min, Dosing Weight 97.273, kg, PRN [...] oria ne 08-29 Route: l 14:01: IVP, [place] 00 Q5Min, Dosing Weight 97.273, kg, PRN [...] Memori a 4- Route: l 14:01: IVP, [place] 00 Q2MIN, Dosing Weight 97.273, kg, PRN [...] ia 4- Route: l 14:01: IVP, ONCE, [place] 00 Dosing Weight 97.273, kg, PRN Nausea & Vomiting, Start date: 08/29/20 9:01:00 CDT Naloxone 2021-0 No 0.4 mg, Memori a 4- Route: l 14:01: IVP, [place] 00 Q2MIN, Dosing Weight 97.273, kg, PRN [...] 08-29 Route: PO, l 14:01: Drug form: [place] 00 TAB, ONCE, Dosing Weight 97.273, kg, [...] Memori a 08-29 Route: l 14:01: IVP, [place] 00 Q2MIN, Dosing Weight 97.273, kg, PRN Narcotic Reversal, Start date: 08/29/20 9:01:00 CDT, Duration: 8 doses or times, Stop date: Limited # of times Ondansetron 1-0 No 4 mg, Memor ia 08-29 Route: l 14:01: IVP, ONCE, [place] 00 Dosing Weight 97.273, kg, PRN Nausea & Vomiting, Start date: 08/29/20 9:01:00 CDT Labetalol 1-0 No 10 mg, Memori a 08-29 Route: l 14:01: IVP, [place] 00 Q5Min, Dosing Weight 97.273, kg, PRN Elevated BP, Start date: 08/29/20 9:01:00 CDT, Duration: 5 doses or times, Stop date: Limited # of times Acetaminoph 2020-0 No 1,000 mg, M emoria en 08-29 Route: PO, l 14:01: Drug form: [place] 00 TAB, ONCE, Dosing Weight 97.273, kg, [...] lisa 08-29 Route: l 14:01: IVP, PRN, [place] 00 Dosing Weight 97.273, kg, PRN Benzodiaze [...] Drug form: l 10 13:15: INJ, Start [place] microgram 00 date: 08/29/20 8:15:00 CDT, Stop date: 08/29/20 9:15:00 CDT norepinephr 2020-0 No Route: IV, Memoria ine (ANES) 08-29 Drug form: l 10 13:15: INJ, Start Marty microgram date: 08/29/20 8:15:00 CDT, Stop date: 08/29/20 9:15:00 CDT norepinephr 2020-0 No Route: IV, Memoria ine (ANES) 08-29 Drug form: l 10 13:15: INJ, Start [place] microgram date: 08/29/20 8:15:00 CDT, Stop date: 08/29/20 9:15:00 CDT norepinephr 2020-0 No Route: IV, Memoria ine (ANES) 08-29 Drug form: l 10 13:15: INJ, Start Marty microgram date: 08/29/20 8:15:00 CDT, Stop date: 08/29/20 9:15:00 CDT norepinephr 2020-0 No Route: IV, Memoria ine (ANES) 08-29 Drug form: l 10 13:15: INJ, Start [place] microgram date: 08/29/20 8:15:00 CDT, Stop date: 08/29/20 9:15:00 CDT norepinephr 2020-0 No Route: IV, Memoria ine (ANES) 08-29 Drug form: l 10 13:15: INJ, Start Marty microgram 00 date: 08/29/20 8:15:00 CDT, Stop date: 08/29/20 9:15:00 CDT Sodium 2020-0 No Route: IV, Memor ia Chloride 4-09 Total l 0.9% IV 12:30: Volume: [place] (ANES) 1000 00 1,000, mL Start date: 08/29/20 7:30:00 CDT, Stop date: 08/29/20 8:30:00 CDT Sodium 1-0 No Route: IV, Memor ia Chloride 4-09 Total l 0.9% IV 12:30: Volume: [place] (ANES) 1000 00 1,000, mL Start date: 08/29/20 7:30:00 CDT, Stop date: 08/29/20 8:30:00 CDT Sodium 2021-0 No Route: IV, Memor ia Chloride 4-09 Total l 0.9% IV 12:30: Volume: [place] (ANES) 1000 00 1,000, mL Start date: [...] 4-09 Total l 0.9% IV 12:30: Volume: [place] (ANES) 1000 00 1,000, mL Start date: [...] PO, l Hydrochlori 11:42: Q24H, # 30 [place] de 150 MG 00 tab, 0 Extended Refill(s) Release Tablet 24 HR Yes 150 mg = 1 Memori a Bupropion -09 tab, PO, l Hydrochlori 11:42: Q24H, # 30 [place] de 150 MG 00 tab, 0 Extended [...] PO, l Hydrochlori 11:42: Q24H, # 30 [place] de 150 MG 00 tab, 0 Extended Refill(s) Release Tablet 24 HR 2020-0 Yes 150 mg = 1 Memori a Bupropion - tab, PO, l Hydrochlori 11:42: Q24H, # 30 [place] de 150 MG 00 tab, 0 Extended Refill(s) Release Tablet 24 HR 2020-0 Yes 150 mg = 1 Memori a Bupropion - tab, PO, l Hydrochlori 11:42: Q24H, # 30 [place] de 150 MG 00 tab, 0 Extended Refill(s) Release Tablet apixaban 5 2020-0 Yes 5 mg, PO, Me moria MG Oral 4 Q12H, tab, l Tablet 11:41: 0 [place] [Eliquis] 00 Refill(s), For Atrial Fibrilatio n apixaban 5 2020-0 Yes 5 mg, PO, Me moria MG Oral 08-29 Q12H, tab, l Tablet 11:41: 0 [place] [Eliquis] 00 Refill(s), For Atrial Fibrilatio n apixaban 5 2020-0 Yes 5 mg, PO, Me mor[place] MG Oral 08-29 Q12H, tab, l Tablet 11:41: 0 [place] [Eliquis] 00 Refill(s), For Atrial Fibrilatio n apixaban 5 2020-0 Yes 5 mg, PO, Me moria MG Oral 4- Q12H, tab, l Tablet 11:41: 0 [place] [Eliquis] 00 Refill(s), For Atrial Fibrilatio n [...] tab, PO, l tablet 11:38: Daily, # [place] 00 90 tab, 3 Refill(s) AMIODarone 2020-0 Yes 200 mg = 1 M emoria 200 mg oral 4-09 tab, PO, l tablet 11:38: Daily, # [place] 00 90 tab, 3 Refill(s) AMIODarone 2020-0 Yes 200 mg = 1 M emoria 200 mg oral 4-09 tab, PO, l tablet 11:38: Daily, # [place] 00 90 tab, 3 Refill(s) AMIODarone 2020-0 Yes 200 mg = 1 M emoria 200 mg oral 4-09 tab, PO, l tablet 11:38: Daily, # [place] 00 90 tab, 3 Refill(s) AMIODarone 2020-0 Yes 200 mg = 1 M emoria 200 mg oral 4-09 tab, PO, l tablet 11:38: Daily, # [place] 00 90 tab, 3 Refill(s) AMIODarone 2020-0 [...] it y of mg tablet 08:18: (two) [place] 30 times Medical daily. Branch amiodarone Yes [...] of mcg/actuati 00:00: [place] on inhaler 00 Medical Branch albuterol Yes [...] Immunizations Ordered Filled Immunization Date Status Comments [facility] e Immunization Name Name PFIZER COVID-19 2020-07-23 Completed [facility] MRNA VACCINATION 00:00:00 [facility] PFIZER COVID-19 2020-07-02 Completed [facility] MRNA VACCINATION 00:00:00 [facility] Influenza Virus 2017-03-08 Completed Universit y of Vaccine 00:00:00 [facility] Influenza Virus 2014-01-30 Completed Universit y of Vaccine (3+ yrs) 00:00:00 [facility] dical Branch Pneumococcal 13 2014-01-30 Completed Universit y of Conjugate, PCV13 00:00:00 [facility] dical (Prevnar 13) Branch Pneumococcal 2012-02-16 Completed University o f Polysaccharide, 00:00:00 [facility] PPSV23 (PNEUMOVAX) Branch Influenza Virus 2012-02-16 Completed Universit y of Vaccine 00:00:00 [facility] PPD (TB) 2012-02-16 Completed University of 00:00:00 [facility] Hep B, Adol or Pedi 2011-09-01 Completed Unive rsity of Dosage 00:00:00 [facility] Hep B, Adol or Pedi 2011-03-17 Completed Unive rsity of Dosage 00:00:00 [facility] Influenza Virus 2011-02-10 Completed Universit y of Vaccine 00:00:00 [facility] Hep B, Adol or Pedi 2011-02-10 Completed Unive rsity of Dosage 00:00:00 [facility] PPD (TB) 2010-11-18 Completed University of 00:00:00 [facility] TDAP (ADACEL) 2010-11-18 Completed University of VACCINE 00:00:00 [facility] HEPATITIS A 2004-03-02 Completed University of 00:00:00 [facility] HEPATITIS A 2003-08-01 Completed University of 00:00:00 [facility] Pneumococcal 2001-10-04 Completed University o f Polysaccharide, 00:00:00 [facility] ical PPSV23 (PNEUMOVAX) Branch PPD () 2001-10-04 Completed University of 00:00:00 [facility] Vital Signs Vital Name Observation Time Observation Value Comments Source Systolic blood 2021-07-14 15:18:00 142 mm[Hg] [facility] Diastolic blood 2021-07-14 15:18:00 76 mm[Hg] [facility] Heart rate 2021-07-14 15:18:00 61 /[facility] height 2021-07-14 15:18:00 162.6 cm [facility] weight 2021-07-14 15:18:00 94.802 [facility] BMI 2021-07-14 15:18:00 35.87 kg/m2 [facility] Systolic blood 2021-08-21 13:13:00 191 mm[Hg] Univer sity of pressure [facility] Diastolic blood 2021-08-21 13:13:00 99 mm[Hg] Unive rsity of pressure [facility] Heart rate 2021-08-21 13:13:00 52 /min [facility] Body temperature 2021-08-21 13:11:00 36.5 Amina [facility] 2021-08-21 13:11:00 16 /min [facility] Body height 2021-08-21 13:11:00 162.6 cm [facility] Body weight 2021-08-21 13:11:00 93.759 kg [facility] BMI 2021-08-21 13:11:00 35.48 kg/m2 [facility] Oxygen saturation in 2021-08-21 13:11:00 95 /min University Arterial blood by [facility] Pulse oximetry Branch Systolic blood 2020-12-08 15:48:00 125 mm[Hg] Method [facility] pressure Diastolic blood 2020-12-08 15:48:00 76 mm[Hg] [facility] pressure Heart rate 2020-12-08 15:48:00 64 /min [facility] Body temperature 2020-12-08 15:48:00 36.61 Amina [facility] Respiratory rate 2020-12-08 15:48:00 17 /min [facility] Body height 2020-12-08 15:48:00 162.6 cm [facility] Body weight 2020-12-08 15:48:00 98.884 kg [facility] BMI 2020-12-08 15:48:00 37.42 kg/m2 [facility] Oxygen saturation in 2020-12-08 15:48:00 97 /min [facility] Arterial blood by Pulse oximetry Respitory Rate 2020-08-30 13:00:00 Memori al [place] Systolic (mm Hg) 2020-08-30 13:00:00 Caesar rial [place] Diastolic (mm Hg) 2020-08-30 13:00:00 Mem orial [place] Systolic (mm Hg) 2020-08-30 11:00:00 Caesar rial [place] Diastolic (mm Hg) 2020-08-30 11:00:00 Mem orial [place] Temperature Oral (F) 2020-08-30 11:00:00 98.4 F [facility] Respitory Rate 2020-08-30 11:00:00 Memori al [place] Respitory Rate 2020-08-30 10:00:00 Memori al [place] Systolic (mm Hg) 2020-08-30 10:00:00 Caesar rial [place] Diastolic (mm Hg) 2020-08-30 10:00:00 Mem orial [place] Temperature Oral (F) 2020-08-30 00:00:00 96.9 F [facility] Temperature Oral (F) 2020-08-29 11:26:00 97.6 F [facility] Height 2020-08-29 10:30:00 162.56 cm [facility] Weight 2020-08-29 10:30:00 [facility] BMI Calculated 2020-08-29 10:30:00 Darien Hammond Procedures Procedure Date / Time Performing Clinician Source Performed ECG 12-LEAD 2021-07-14 15:14:00 Elan Lira [facility] [id number] 2021-06-17 00:00:00 RIKY [facility] CONSENT/REFUSAL FOR 2021-06-15 16:11:59 [facility] DIAGNOSIS AND TREATMENT [place] [facility] ASSIGNMENT OF BENEFITS 2021-06-15 16:11:40 Doctor Unassigned, [facility] [place] [facility] GASTROINTESTINAL PANEL 2020-12-08 22:21:00 Yazmin [facility] XR ABDOMEN 1 VW 2020-12-08 18:06:32 Eliseo Glaser spital OR [place] < 1 HOUR 2020-09-05 22:39:00 Eliseo Glaser spital SURGICAL PATHOLOGY REQUEST 2020-09-05 21:54:00 Eliseo Glaser [facility] XR CHEST 1 VW PORTABLE 2020-09-05 19:55:[address] [facility] DISCHARGE PATIENT 2020-09-05 17:27:55 Lucas Harris [facility] UT AN ELECTIVE 2020-09-05 16:47:23 Kirit [facility] ENDOTRACHEAL AIRWAY EGD, INTRAOPERATIVE 2020-09-05 16:27:00 [facility] 2020-09-05 15:04:00 Sarai Maharaj [facility] TIME (PTT) M. PROTHROMBIN TIME WITH INR 2020-09-05 15:04:00 Mindy Maharaj [facility] MChelsie Plan of Care Planned Activity Planned Date Details Comments Source Future Scheduled 2021-08-26 Screening for [facility] Test 13:02:23 malignant neoplasm of cervix (procedure) [code = 585155698] Future Scheduled 2021-08-26 BREAST CANCER [facility] Test 13:02:23 SCREENING [code = BREAST CANCER SCREENING] Future Scheduled 2021-08-26 COLONOSCOPY SCREENING [facility] Test 13:02:23 [code = COLONOSCOPY SCREENING] Future Scheduled 2021-08-26 [facility] for [facility] Test 13:02:23 malignant neoplasm of lung (procedure) [code = 483129979] Future Scheduled 2021-08-26 SHINGLES VACCINES (#1) M [facility] Test 13:02:23 [code = SHINGLES VACCINES (#1)] Future Scheduled 2021-08-26 COVID-19 VACCINE (3 - Me [facility] Test 13:02:23 Pfizer risk 4-dose series) [code = COVID-19 VACCINE (3 - Pfizer risk 4-dose series)] Future Scheduled 2021-08-26 65+ [facility]AL [facility] Test 13:02:23 VACCINE (4 of 4 - PPSV23) [code = 65+ PNEUMOCOCCAL VACCINE (4 of 4 - PPSV23)] Future Scheduled 2021-08-26 INFLUENZA VACCINE [facility] Test 13:02:23 [code = INFLUENZA VACCINE] Encounters Start End Encounter Admission Attending Care Care Encounter Source Date/Time Date/Time Type Type Clinicians Facility Department ID 2021-08-03 Inpatient Ashely, EDUARDOCL OUTD [id number] [facility] 11:30:00 Mike [id number] [facility] 2021-07-14 Outpatient JENNY [facility] [id number] [place] 09:33:51 [facility] 2021-06-16 Inpatient RAUL Lund, EDUARDOCL OUTD [id number] [facility] 08:30:00 Mike [id number] [facility] 2021-06-15 Inpatient RAUL Lund, EDUARDOCL OUTD [id number] [facility] 10:30:00 Mike [id number] [facility] 2021-09-07 2021-09-07 Outpatient Marika KOEHLER [facility] [id number] Univers 08:00:00 08:00:00 EMERITA rodas [facility] 2021-08-21 2021-08-21 Loom Technician Santiago Cardenas 1.2.840.1 [id number] Univers 10:45:00 10:45:00 Visit [facility] 43276.1.1 ity of 3.104.2.7 [place] .3.175330 Medica l .8 Branch 2021-08-21 2021-08-21 Office [place], 1.2.840.6 [id number] Univers 08:30:00 09:00:00 Visit Santiago 62503.1.1 ity of 3.104.2.7 [place] .3.566615 Medica l .8 Branch 2021-08-21 2021-08-21 Travel 1.2.840.1 1.2.412.572 [id number] Univers 00:00:00 00:00:00 81483.1.1 350.1.13.10 ity of 3.104.2.7 4.2.7.3.698 [place] .3.368517 084.8 Medica l .8 [place] 2021-08-14 2021-08-14 Telephone East, 1.2.840.8 [id number] Univers 00:00:00 00:00:00 Santiago 47074.1.1 ity of 3.104.2.7 [place] .3.472289 Medica l .8 [place] 2021-08-13 2021-08-13 Telephone [place], 1.2.840.8 [id number] Univers 00:00:00 00:00:00 [place] 53533.1.1 ity of 3.104.2.7 [place] .3.273400 Medica l .8 [place] 2021-08-05 2021-08-05 Outpatient WINTER Leal HCACL [id number] [facility] 05:24:00 05:24:00 Mike 31 [facility] 2021-08-05 2021-08-05 Outpatient RAUL Lund, HCACL OUTD [id number] [facility] 05:24:00 05:24:00 Mike [id number] [facility] 2021-07-14 2021-07-14 Office KIMBERLEY Lira 6400 1.2.840.114 13 [id number] MS 08:45:00 09:34:01 Visit Elan ROMERO 350.1.13.58 Health 9.2.7.2.686 [id number] 1 2021-07-09 2021-07-09 Telephone Ap, KIMBERLEY 6400 1.2.840.114 [id number] MS 00:00:00 00:00:[address] 350.1.13.58 [facility] 9.2.7.2.686 [id number] 1 2021-06-17 2021-06-17 Inpatient RAUL Lund, HCACL INTE.02 [id number] [facility] 10:56:00 14:36:00 Mike [id number] [facility] 2021-06-17 2021-06-17 Inpatient RAUL Lund, HCACL INTE.02 [id number] [facility] 10:56:00 14:36:00 Mike 47 [facility] 2021-06-15 2021-06-15 Orders Doctor 1.2.840.5 [id number] Univers 00:00:00 00:00:00 Only Unassigned, 43472.1.1 ity of [place] 3.104.2.7 [place] .3.569642 Medica l .8 Branch 2021-06-15 2021-06-15 Travel 1.2.840.1 1.2.452.973 [id number] Univers 00:00:00 00:00:00 22710.1.1 350.1.13.10 ity of 3.104.2.7 4.2.7.3.698 [place] .3.863804 084.8 Medica l .8 Branch 2021-06-11 2021-06-11 Refill [place], 1.2.840.7 [id number] Univers 00:00:00 00:00:00 Santiago 99676.1.1 ity of 3.104.2.7 [place] .3.809253 Medica l .8 Branch 2021-04-28 2021-04-28 Telephone Yazmin, 1.2.840.9 [id number] Methodi 00:00:00 00:00:[address] 3.430.2.7 Hospit a .3.039863 l .8 2021-03-31 2021-03-31 [facility], 1.2.840.1 [id number] Methodi 00:00:00 00:00:00 Only Sarai Lieberman 66865.1.1 979 s t 3.430.2.7 Hospit a .3.796043 l .8 2021-03-24 2021-03-24 [facility] 1.2.840.5 [id number] Methodi 00:00:00 00:00:[address] 3.430.2.7 Hospit a .3.749007 l .8 2021-01-19 2021-01-19 Telephone Pelletier, 1.2.840.1 [id number] [id number] Methodi 00:00:00 00:00:[address] 3.430.2.7 Hospit a .3.810464 l .8 2020-12-12 2020-12-12 Office Hematpour, [facility] 6400 1.2.840.114 12 [id number] 07:42:02 08:18:[address] 350.1.13.58 9.2.7.2.686 [id number] 1 2020-12-09 2020-12-09 Telephone [facility], 1.2.840.1 [id number] Methodi 00:00:00 00:00:00 Sarai Lieberman 60665.1.1 316 s t 3.430.2.7 Hospit a .3.886393 l .8 2020-12-08 2020-12-08 [facility], 1.2.840.1 [id number] Methodi 12:35:54 23:59:00 Encounter Ray [address]335.1.[address] 3.430.2.7 Hospit a .3.582373 l .8 2020-12-08 2020-12-08 [facility] 1.2.840.1 [id number] Methodi 17:25:00 17:30:[address] 3.430.2.7 Hospit a .3.332705 l .8 2020-12-08 2020-12-08 Office Yazmin, 1.2.840.1 [id number] Methodi 10:30:00 11:39:56 Visit Ray 53570.1.[address] 3.430.2.7 Hospit a .3.510192 l .8 2020-12-08 2020-12-08 Travel 1.2.840.1 1.2.187.357 5666 [id number] Methodi 00:00:00 00:00:[address] 3.430.2.7 0.2.7.3.698 Ho spita .3.218193 084.8 l .8 2020-12-02 2020-12-02 Loom Technician [facility] 1.2.840.114 8 [id number] 10:20:06 10:36:19 Visit Y HEALTH 350.1.13.10 [facility] 4.2.7.2.686 [id number] 316 2020-11-25 2020-11-25 Office MEGHA Beltran 1.2.840.114 [id number] 11:06:30 11:58:14 Visit Robbi R [facility] 350.1.13.10 REGIONAL 4.2.7.2.686 MATERNAL [id number] & CHILD 107 [facility] 2020-11-25 2020-11-25 [facility] 1.2.774.047 [id number] 00:00:00 00:00:00 Santiago Y HEALTH 350.1.13.10 CLINICS 4.2.7.2.686 [id number] 2020-11-25 2020-11-25 Telephone Devin [facility] 1.2.468.013 [id number] 00:00:00 00:00:00 Rossandynda R [facility] 350.1.13.10 REGIONAL 4.2.7.2.686 MATERNAL [id number] & CHILD 107 [facility] 2020-11-14 2020-11-14 Abstract Rodas, 1.2.840.1 [id number] Methodi 00:00:00 00:00:[address] 3.430.2.7 Hospit a .3.333700 l .8 2020-11-14 2020-11-14 Telephone Clark, 1.2.840.1 [id number] 2099 [id number] Methodi 00:00:00 00:00:[address] 3.430.2.7 Hospit a .3.341936 l .8 2020-11-07 2020-11-07 Telephone Diana, KIMBERLEY 6400 1.2.840.114 [id number] 00:00:00 00:00:[address] 350.1.13.58 9.2.7.2.686 [id number] 1 2020-10-27 2020-10-27 Telephone Yazmin, 1.2.840.0 [id number] Methodi 00:00:00 00:00:[address] 3.430.2.7 Hospit a .3.274088 l .8 2020-10-24 2020-10-24 Telephone Rodas, 1.2.840.1 [id number] 2099 [id number] Methodi 00:00:00 00:00:[address] 3.430.2.7 Hospit a .3.957694 l .8 2020-10-06 2020-10-12 [facility], 1.2.840.1 [id number] Methodi 15:30:00 00:08:46 [address] Ray [address]85.1.[address] 3.430.2.7 Hospit a .3.393873 l .8 2020-09-30 2020-09-30 Telephone Yazmin, 1.2.840.2 [id number] Methodi 00:00:00 00:00:[address] 3.430.2.7 Hospit a .3.473670 l .8 2020-09-21 2020-09-21 Travel 1.2.840.1 1.2.828.989 6126 [id number] Methodi 00:00:00 00:00:[address] 3.430.2.7 0.2.7.3.698 spita .3.003639 084.8 l .8 2020-09-06 2020-09-06 [facility] 1.2.840.1 [id number] Methodi 17:42:30 23:59:[address] 3.430.2.7 Hospit a .3.201289 l .8 2020-09-06 2020-09-06 [facility], 1.2.840.1 [id number] [id number] Methodi 16:50:00 17:41:00 Encounter Ray [address]69.1.[address] 3.430.2.7 Hospit a .3.490331 l .8 2020-09-05 2020-09-05 [facility], 1.2.840.1 [id number] [id number] Methodi 09:17:00 19:45:00 Encounter Ray [address]46.1.[address] 3.430.2.7 Hospit a .3.641968 l .8 2020-09-05 2020-09-05 Surgery [facility], 1.2.840.1 [id number] Methodi 11:30:00 13:15:[address] 3.430.2.7 Hospit a .3.798149 l .8 2020-09-05 2020-09-05 Anesthesia [facility], 1.2.840.1 [id number] Methodi 11:27:00 12:20:00 Event Kirit 26623.1.1 243 s t V. 3.430.2.7 Hospit a .3.769016 l .8 2020-09-05 2020-09-05 Travel 1.2.840.1 1.2.338.398 2207 [id number] Methodi 00:00:00 00:00:[address] 3.430.2.7 0.2.7.3.698 Ho spita .3.372923 084.8 l .8 2020-09-04 2020-09-04 Telephone [place], 1.2.840.1 [id number] Methodi 00:00:00 00:00:00 Sarai Lieberman 94418.1.1 762 s t 3.430.2.7 Hospit a .3.997288 l .8 2020-09-02 2020-09-02 Telephone [place], 1.2.840.8 [id number] Methodi 00:00:00 00:00:00 Sarai Lieberman 99179.1.1 344 s t 3.430.2.7 Hospit a .3.627454 l .8 2020-08-29 2020-08-30 [id number] [facility] 10:20:00 14:10:00 Outpatient [facility] 00 l [facility] 2020-08-29 2020-08-30 Outpatient HEMATPOUR, [facility] CAR 7500 [facility] 05:20:00 09:10:00 [place] Results Test Description Test Time Test Comments Results Result Comments Source Novel Coronavirus 2018 Inhouse 2021-08-03 18:08:00 Test Item Value Reference Range Interpretation Comme nts Novel Coronavirus 2018 Negative Negative Posit bruno results are indicative of the Inhouse (test code = presenc e [id number]-BmZ-9 RNA, clinical COVNONPUI) correlation wit h patient [...] qualitative detection of nucleic acid s from faaTASC-KpM-6 virus and diagn osis of SARS-CoV-2 virusinfection. It is an Emergency Use Authorization ( EUA) testauthorized by the U.S. FDA. BASIC METABOLIC [id number] 09:37:00 Test Item Value Reference Range Interpretation [...] = 9.0 mg/dL 8.0-10.5 N CA) PROTHROMBIN [id number] 09:32:00 Test Item Value Reference Range Interpretation [...] o prevent recurre nt infarct). 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 [facility] - XR CHEST 1 [id number] 00:00:00 [facility] 1955 Sex: F FAX: Lele Olivera DO [phone] [place]: St: ADM FAX: Jean Paul Scales MD [phone] FAX: Bahman Chopra [phone] Name: LIO WATTS [facility] : 1955 Age/S: 66/F [address] [place], [place] [address]vd Unit #: [id number] Loc: [place] [address] 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 BASIC METABOLIC [id number] 11:37:00 Test Item Value Reference Range Interpretation [...] code = 9.0 mg/dL 8.0-10.5 N CA) [id number] 11:37:00 Test Item Value Reference Range Interpretation Comments PREALBUMIN (test code = PREALB) 24.3 mg/dL 16.0-40.0 N PROTHROMBIN [id number] 11:03:00 Test Item Value Reference Range Interpretation [...] o prevent recurre nt infarct). CBC W/AUTO [id number] 10:59:00 Test Item Value Reference Range Interpretation [...] 0.0-0.1 N NRBC#) - XR CHEST 2 [id number] 00:00:00 [facility] 1955 Sex: F FAX: Lele Olivera DO [phone] [place]: St: PRE FAX: Jean Paul Scales MD [phone] Name: LIO WATTS [facility] : 1955 Age/S: 66/F [address] [place] [address] Unit #: [id number] Loc: [place] [address] Phys: [facility] [id number] Dis Date: Status: PRE [facility] PHONE #: [phone] Exam Date: 06/16/2021 1120 FAX #: [phone] Reason: PREOP EXAMS: CPT CODE: [id number] XR CHEST 2 V 44587 PROCEDURE INFORMATION: Exam: XR Chest Exam date [...] Technologist: Danielle Nix RT(R) Trnscrd Date/Time/By: 06/16/2021 (1925) : By: [email or web address] Orig Print D/T: S: 06/16/2021 (2953) PAGE 1 Signed ReportGastrointestinal [id number] 04:35:05 Test Item Value Reference Interpretation Comments [...] Rotavirus PCR (test Not Detected code = 4145176) Salmonella PCR (test Not Detected code = [...] PCR Not Detected (test code = 7124) [facility] [id number] 19:30:47 Test Item Value Reference Range Interpretation Comments Case number (test [id number] code = 3218668) Surgical pathology See link below for PDF report (test code = Lab Report 2255) Result status (test This is Supplemental code = 8071625) Report for [id number] [facility]2021-04-09 16:31:00 Test Item Value Reference Range Interpretation Comments POC Activated Clotting Time (test code 153 s = POC Activated Clotting Time) [place] [id number] 16:31:00 Test Item Value Reference Range Interpretation Comments POC Activated Clotting Time (test code 153 s = POC Activated Clotting Time) [place] [id number] 16:31:00 Test Item Value Reference Range Interpretation Comments POC Activated Clotting Time (test code 153 s = POC Activated Clotting Time) [place] [id number] 16:31:00 Test Item Value Reference Range Interpretation Comments POC Activated Clotting Time (test code 153 s = POC Activated Clotting Time) [id number] 16:31:00 Test Item Value Reference Range Interpretation Comments POC Activated Clotting Time (test code 153 s = POC Activated Clotting Time) [facility] [id number] 16:31:00 Test Item Value Reference Range Interpretation Comments POC Activated Clotting Time (test code 153 s = POC Activated Clotting Time) [facility] [id number] 16:31:00 Test Item Value Reference Range Interpretation Comments POC Activated Clotting Time (test code 153 s = POC Activated Clotting Time) [place] [id number] 14:37:00 Test Item Value Reference Range Interpretation Comments POC Activated Clotting Time (test code 454 s = POC Activated Clotting Time) [place] [id number] 14:37:00 Test Item Value Reference Range Interpretation Comments POC Activated Clotting Time (test code 454 s = POC Activated Clotting Time) [place] [id number] 14:37:00 Test Item Value Reference Range Interpretation Comments POC Activated Clotting Time (test code 454 s = POC Activated Clotting Time) [place] [id number] 14:37:00 Test Item Value Reference Range Interpretation Comments POC Activated Clotting Time (test code 454 s = POC Activated Clotting Time) [place] 277391-04-09 14:37:00 Test Item Value Reference Range Interpretation Comments POC Activated Clotting Time (test code 454 s = POC Activated Cl[facility] Time) [id number] 14:37:00 Test Item Value Reference Range Interpretation Comments POC Activated Clotting Time (test code 454 s = POC Activated Clotting Time) [id number] 14:37:00 Test Item Value Reference Range Interpretation Comments POC Activated Clotting Time (test code 454 s = POC Activated Clotting Time) [id number] 14:13:00 Test Item Value Reference Range Interpretation Comments POC Activated Clotting Time (test code 354 s = POC Activated Clotting Time) [facility] CenterNadkicsTQZBOXREZE0920-16-66 14:13:00 Test Item Value Reference Range Interpretation Comments POC Activated Clotting Time (test code 354 s = POC Activated Clotting Time) [facility]TseoozhHDNUAUXHEL0610-63-89 14:13:00 Test Item Value Reference Range Interpretation Comments POC Activated Clotting Time (test code 354 s = POC Activated Clotting Time) [facility] CenterSwzdpxmNBAXLHKWJQ3329-07-68 14:13:00 Test Item Value Reference Range Interpretation Comments POC Activated Clotting Time (test code 354 s = POC Activated Clotting Time) [facility] CenterSchdrejAYDBDPSBFH5925-13-08 14:13:00 Test Item Value Reference Range Interpretation Comments POC Activated Clotting Time (test code 354 s = POC Activated Clotting Time) [facility] CenterDqfxdavTQVPKJEPCD1362-27-49 14:13:00 Test Item Value Reference Range Interpretation Comments POC Activated Clotting Time (test code 354 s = POC Activated Clotting Time) [facility] CenterEdmpyuhZAKQUNBCNH3460-45-53 14:13:00 Test Item Value Reference Range Interpretation Comments POC Activated Clotting Time (test code 354 s = POC Activated Clotting Time) [facility] LWQMPRN2721-23-83 10:37:00Negative (08/29/20 5:37 AM) [facility] PCYVC6548[facility]84-62 10:37:04226Noxrdvyd HermannCHEM PANEL 2020-08-29 10:37:0028[facility]annCHEM WWGRY5273-32-21 10:37:001.01[facility] HermannCHEM IGYCY3243-03-54 10:37:16023Fkoweywo HermannCHEM DINQK8292-35-82 10:37:003.8[facility] HermannCHEM NLKWN6086-57-53 10:37:52364Asfslizl HermannCHEM LISLT3425-86-18 10:37:0028[facility] HermannCHEM JJQRC0062-81-97 10:37:009.8 [facility]annCHEM GCBPR1751-86-03 10:37:0011.8[facility] HermannCHEM PANEL 2020-08-29 10:37:0059[facility] HermannCHEM HKNKP8722-68-49 10:37:002.9[facility] JwmwytiPVNWJLJFST1784-94-37 10:37:006.8[facility] YgvowcyDFHKWFKPGG4398-70-90 10:37:004.47[facility] GmbubpzGOPDQQJANB1313-33-19 10:37:0010.6[facility] BFCTIGZQMD1608-86-26 10:37:0034.0[facility] YhqrazaUKVOTOEYIM3523-17-70 10:37:00 76.1[facility] XbmbbxqLDRRTOKMBW7031-51-42 10:37:00 Test Item Value Reference Range Interpretation Comments MCH (test code = MCH) 23.8 pg 27.0-31.0 [facility] XjcfndxTQYMQEMKEF2661-26-76 10:37:0031.3[facility] HermannHEMATOLOGY 2020-08-29 10:37:0018.2[facility] ZplxzkaKEDUVZETSX7281-74-75 10:37:66027Wepbdnox ZssgkhiUKWOJHBNSV5685-17-55 10:37:007.5[facility] ZnfsuioXWFANJALZE4410-70-04 10:37:00 Test Item Value Reference Range Interpretation Comments PT (test code = PT) 12.8 s 12.0-14.7 [facility] YdstpogZCVMSSSIVR4537-13-59 10:37:00 Test Item Value Reference Range Interpretation Comments INR (test code = INR) 0.97 1 0.85-1.17 [facility] AzhyfkoZEXOSMHALA9591-19-96 10:37:00 Test Item Value Reference Range Interpretation Comments PTT (test code = PTT) 25.0 s 22.9-35.8 [facility] LfwwirePICJUVOLJS5454-02-00 10:37:0070.5[facility] HermannHEMATOLOGY 2020-08-29 10:37:0018.8[facility] FcjahjtAPROIYZSUK4585-33-13 10:37:009.5[facility] XnwzssvNVCZQULQYL8571-82-52 10:37:000.9[facility] LvaajmfDMVRWUWRKU5852-74-07 10:37:000.3[facility] UoqukcdZJNVJPKJTT5404-59-22 10:37:004.8[facility] HVDCUQGHAP7098-16-01 10:37:001.3[facility] SkvzgxpIUTFBKXQTH8698-09-30 10:37:000.6 [facility] FqykfllLKTGNZYZCF8886-26-17 10:37:000.1[facility] HermannHEMATOLOGY 2020-08-29 10:37:001+ *ABN*(08/29/20 5:37 AM)[facility] FodzvpmIEVJKATZEQ6978-84-15 10:37:00Not Detected (08/29/20 5:37 AM)[facility] HermannBLOOD BANK RESULTS 2020-08-29 10:37:00Negative (08/29/20 5:37 AM)[facility] HermannCHEM YIGSU1247-16-04 10:37:15174Nvqpjqad HermannCHEM PENCO8939-17-87 10:37:0028[facility] HermannCHEM WDVXS1485-28-70 10:37:001.01[facility] HermannCHEM NLYFH2742-38-37 10:37:82934 [facility] HermannCHEM ZAMLK9076-95-74 10:37:003.8[facility] HermannCHEM PANEL 2020-08-29 10:37:82119Bvwysxpp HermannCHEM EHHVQ6182-37-70 10:37:0028[facility] HermannCHEM WLRYV3021-38-89 10:37:009.8[facility] HermannCHEM GGMMI9575-57-77 10:37:0011.8[facility] HermannCHEM IIOSH4836-71-62 10:37:0059[facility] HermannCHEM JEECW2779-17-57 10:37:002.9[facility] DqvjfceMYRWXFZDQS1011-88-66 10:37:006.8 [facility] YcotsvnHJBDWSHKEV5147-00-03 10:37:004.47[facility] HermannHEMATOLOGY 2020-08-29 10:37:0010.6[facility] CypwtsqOVZYDWJUPY5411-92-97 10:37:0034.0[facility] NwmembdXCSIMVNVKV8105-81-56 10:37:0076.1[facility] TqzaetoZRGECXVZXV8878-79-98 10:37:00 Test Item Value Reference Range Interpretation Comments MCH (test code = MCH) 23.8 pg 27.0-31.0 [facility] JshvgopMPUNHHMQNX6902-66-00 10:37:0031.3[facility] HermannHEMATOLOGY 2020-08-29 10:37:0018.2[facility] NnthccxZJVQEQYEFI0622-67-43 10:37:05290Qupegxbj QwjdhoiVSJSVVDAJU4943-55-60 10:37:007.5[facility] CeykbptMVNFQXQMNL5467-67-87 10:37:00 Test Item Value Reference Range Interpretation Comments PT (test code = PT) 12.8 s 12.0-14.7 [facility] JwsgfzlEJNREXJKHA2774-70-08 10:37:00 Test Item Value Reference Range Interpretation Comments INR (test code = INR) 0.97 1 0.85-1.17 [facility] GjxfihrVWJHSWIQUO1052-31-04 10:37:00 Test Item Value Reference Range Interpretation Comments PTT (test code = PTT) 25.0 s 22.9-35.8 [facility] DclltziBFVNSELDQT5306-45-40 10:37:0070.5[facility] HermannHEMATOLOGY 2020-08-29 10:37:0018.8[facility] ApacvjbXYDBVMXRPK2136-49-27 10:37:009.5[facility] PdqrcprKBOVKJSWSZ8116-69-86 10:37:000.9[facility] ScxivhwYWLBVQNKOB0991-20-06 10:37:000.3[facility] OfntilcVRECRBUNRP4119-17-13 10:37:004.8[facility] JFOPJTANHT3027-17-64 10:37:001.3[facility] KuzakqqLKFEZIWWYD5973-96-40 10:37:000.6 [facility] XnxpuloCUSLKLLDFY7890-79-38 10:37:000.1[facility] HermannHEMATOLOGY 2020-08-29 10:37:001+ *ABN*(08/29/20 5:37 AM)[facility] LmitawcZUFWOTYFUT5859-62-76 10:37:00Not Detected (08/29/20 5:37 AM)[facility] HermannBLOOD BANK RESULTS 2020-08-29 10:37:00Negative (08/29/20 5:37 AM)[facility] HermannCHEM RFAMD7426-35-04 10:37:35121Hsfgpzye HermannCHEM BWFNJ1014-41-33 10:37:0028[facility] HermannCHEM UCMNF1390-66-69 10:37:001.01[facility] HermannCHEM KCTIW2390-34-54 10:37:16175 [facility] HermannCHEM GCJDQ3404-28-14 10:37:003.8[facility] HermannCHEM PANEL 2020-08-29 10:37:03469Wkyxwadu HermannCHEM LGQXT9846-82-75 10:37:0028[facility] HermannCHEM WQUPN6126-88-85 10:37:009.8[facility] HermannCHEM GXRKE1702-08-53 10:37:0011.8[facility] HermannCHEM CKUPJ1385-53-32 10:37:0059[facility] HermannCHEM LLGID6203-78-76 10:37:002.9[facility] ZvzbjkfMGNUOALOQN2605-66-04 10:37:006.8 [facility] BqvvpaaNQMQKUDHVR1593-13-42 10:37:004.47[facility] HermannHEMATOLOGY 2020-08-29 10:37:0010.6[facility] RhbxawjUQXMBWXIMG6519-08-72 10:37:0034.0[facility] CpcgyseURFSPYKYMQ1553-57-37 10:37:0076.1[facility] CpofmxzKVVWLJCQJV4846-75-69 10:37:00 Test Item Value Reference Range Interpretation Comments MCH (test code = MCH) 23.8 pg 27.0-31.0 [facility] YpfjeslJMVIIEAVGZ9386-30-51 10:37:0031.3[facility] HermannHEMATOLOGY 2020-08-29 10:37:0018.2[facility] FxwdgapQLGYTPPFVK4097-18-40 10:37:80540Snpmhcrk TgssvpsHOXLGKSHOR8862-77-43 10:37:007.5[facility] TkitklaWQQNBLTKMO2019-94-19 10:37:00 Test Item Value Reference Range Interpretation Comments PT (test code = PT) 12.8 s 12.0-14.7 [facility] HbdgxwgYNQQNUUAVC0560-77-12 10:37:00 Test Item Value Reference Range Interpretation Comments INR (test code = INR) 0.97 1 0.85-1.17 [facility] AwtzyfsUVZZPVZPBK6680-73-53 10:37:00 Test Item Value Reference Range Interpretation Comments PTT (test code = PTT) 25.0 s 22.9-35.8 [facility] RlveetgBLBTDXTGTX6652-15-61 10:37:0070.5[facility] HermannHEMATOLOGY 2020-08-29 10:37:0018.8[facility] AvsrtqdRTQHPYWWSL7573-68-80 10:37:009.5[facility] WiajrreEROMUOAWXU8496-17-41 10:37:000.9[facility] SulramgXUVYHAMTCF7879-98-42 10:37:000.3[facility] LkdiuimDEQDPVGKSW8850-45-16 10:37:004.8[facility] VNSXMFJEXJ4474-65-35 10:37:001.3[facility] ZxpzhixISXIOONPTS9915-28-70 10:37:000.6 [facility] SlffzpdHCAQOQRUIW2963-84-95 10:37:000.1[facility] HermannHEMATOLOGY 2020-08-29 10:37:001+ *ABN*(08/29/20 5:37 AM)[facility] SevquerIJOSEJSXEK0479-04-68 10:37:00Not Detected (08/29/20 5:37 AM)[facility] HermannBLOOD BANK RESULTS 2020-08-29 10:37:00Negative (08/29/20 5:37 AM)[facility] HermannCHEM EBOHP0920-40-29 10:37:28282Oirurxjl HermannCHEM OXBXU7219-94-36 10:37:0028[facility] HermannCHEM JWHIT0157-32-56 10:37:001.01[facility] HermannCHEM CHVRI0271-05-97 10:37:02116 [facility] HermannCHEM CAIIG2471-55-95 10:37:003.8[facility] HermannCHEM PANEL 2020-08-29 10:37:19406Ngcvicxo HermannCHEM EVJHM9244-43-91 10:37:0028[facility] HermannCHEM UMOBF1002-19-07 10:37:009.8[facility] HermannCHEM JDBEA7862-80-62 10:37:0011.8[facility] HermannCHEM HQPQV8270-77-79 10:37:0059[facility] HermannCHEM IZXVW7810-46-72 10:37:002.9[facility] UpvqxxqJCNMWCADKE9604-47-49 10:37:006.8 [facility] OpqpckqYZRRXRETHW4864-86-11 10:37:004.47[facility] HermannHEMATOLOGY 2020-08-29 10:37:0010.6[facility] ZafqclaTUSBZJNIQP9597-58-28 10:37:0034.0[facility] KouacuyXTIOBSWKUR7225-09-90 10:37:0076.1[facility] GopxkspZKRBLFWSPU8560-17-86 10:37:00 Test Item Value Reference Range Interpretation Comments MCH (test code = MCH) 23.8 pg 27.0-31.0 [facility] FlesnmnWQTNKHEXMI1655-77-16 10:37:0031.3[facility] HermannHEMATOLOGY 2020-08-29 10:37:0018.2[facility] RnpbnajCTKPCPDQMR2958-35-76 10:37:62486Wqsbeztb OtqlikpRFMSYQMNFX5673-52-38 10:37:007.5[facility] NtsizbsWLHONEHCQK6158-90-41 10:37:00 Test Item Value Reference Range Interpretation Comments PT (test code = PT) 12.8 s 12.0-14.7 [facility] AokzbgfIDDLNHNQDS8202-53-19 10:37:00 Test Item Value Reference Range Interpretation Comments INR (test code = INR) 0.97 1 0.85-1.17 [facility] BmpeykwJNFSHAPRMF8809-27-35 10:37:00 Test Item Value Reference Range Interpretation Comments PTT (test code = PTT) 25.0 s 22.9-35.8 [facility] MhkmamvFOCYWMPKOP6009-06-60 10:37:0070.5[facility] HermannHEMATOLOGY 2020-08-29 10:37:0018.8[facility] EdrsvmxRWUIMTXIYM2850-95-19 10:37:009.5[facility] OxlyiteSKBUVRVDRH8729-19-73 10:37:000.9[facility] AkbgpyoZAYPAKAYSC1610-33-20 10:37:000.3[facility] YtcoprmFXIXAIJKBG2517-02-49 10:37:004.8[facility] BFOBAFJCSN3022-11-34 10:37:001.3[facility] FpbmqaqSFMTTTTGWI8188-08-46 10:37:000.6 [facility] EcfwmfiFMUSJWFHEU2028-46-25 10:37:000.1[facility] HermannHEMATOLOGY 2020-08-29 10:37:001+ *ABN*(08/29/20 5:37 AM)[facility] BuyeuozCBOQTYHHPF7259-83-81 10:37:00Not Detected (08/29/20 5:37 AM)[facility] HermannBLOOD BANK RESULTS 2020-08-29 10:37:00Negative (08/29/20 5:37 AM)[facility] HermannCHEM GNEYN0773-66-77 10:37:09045Gdqhuayg HermannCHEM MCVIL6035-69-91 10:37:0028[facility] HermannCHEM UBUSZ6548-65-36 10:37:001.01[facility] HermannCHEM XHNSU8492-20-22 10:37:28133 [facility] HermannCHEM LPLYV6529-52-16 10:37:003.8[facility] HermannCHEM PANEL 2020-08-29 10:37:14398Aouaspik HermannCHEM XVBUF7294-59-40 10:37:0028[facility] HermannCHEM LRLBI3067-61-65 10:37:009.8[facility] HermannCHEM BVTOU0176-92-59 10:37:0011.8[facility] HermannCHEM UWFNR3024-08-52 10:37:0059[facility] HermannCHEM MRVFG5231-14-98 10:37:002.9[facility] AkqkrakXNZBWITQQN6783-99-20 10:37:006.8 [facility] XojzxxgYMBFFFZOFL7199-36-32 10:37:004.47[facility] HermannHEMATOLOGY 2020-08-29 10:37:0010.6[facility] DtgmlodSPCQZTUNWJ8591-45-00 10:37:0034.0[facility] ZhscyjbNUFKGTYMYJ3896-49-18 10:37:0076.1[facility] JnnamxkHGZOKJFGZD3157-13-62 10:37:00 Test Item Value Reference Range Interpretation Comments MCH (test code = MCH) 23.8 pg 27.0-31.0 [facility] ZfaqlerWURDIOFTZC8196-17-18 10:37:0031.3[facility] HermannHEMATOLOGY 2020-08-29 10:37:0018.2[facility] UvefnhxXAGXWFOZPZ3748-11-18 10:37:50512Vayadtgw BjowauhMAHOFJROPL1353-08-82 10:37:007.5[facility] LeijmxbIYJEALROXY3163-96-04 10:37:00 Test Item Value Reference Range Interpretation Comments PT (test code = PT) 12.8 s 12.0-14.7 [facility] QhzyrniROTZWMFQYY8821-38-50 10:37:00 Test Item Value Reference Range Interpretation Comments INR (test code = INR) 0.97 1 0.85-1.17 [facility] QfqscgaPELZDPRHZF8850-13-11 10:37:00 Test Item Value Reference Range Interpretation Comments PTT (test code = PTT) 25.0 s 22.9-35.8 [facility] NphnkkuOSATOQXKKR4550-56-48 10:37:0070.5[facility] HermannHEMATOLOGY 2020-08-29 10:37:0018.8[facility] VwzkyezSCWZLRQUKM2348-65-11 10:37:009.5[facility] KijssjmLNQJFBDRBA0277-17-21 10:37:000.9[facility] TqjmzkmHFDACNKAIS2978-15-50 10:37:000.3[facility] SrmydriDNZVFLWDFE6420-24-83 10:37:004.8[facility] MZEOUNXMCU1465-16-20 10:37:001.3[facility] UyxxuswVIUCZAHZVN8166-05-13 10:37:000.6 [facility] WporpkuBESVPAKFAA0119-09-63 10:37:000.1[facility] HermannHEMATOLOGY 2020-08-29 10:37:001+ *ABN*(08/29/20 5:37 AM)[facility] JxlnnewQAOBGYBMXL4806-49-58 10:37:00Not Detected (08/29/20 5:37 AM)[facility] HermannBLOOD BANK RESULTS 2020-08-29 10:37:00Negative (08/29/20 5:37 AM)[facility] HermannCHEM QFPNG7500-59-54 10:37:97576Svqpkufg HermannCHEM AZNXC8730-05-88 10:37:0028[facility] HermannCHEM OKGDP9800-30-04 10:37:001.01[facility] HermannCHEM VTGJW8195-89-23 10:37:13722 [facility] HermannCHEM BMVEK2009-73-36 10:37:003.8[facility] HermannCHEM PANEL 2020-08-29 10:37:04774Lynobtii HermannCHEM NZPQF9311-24-84 10:37:0028[facility] HermannCHEM OSUYQ5530-51-83 10:37:009.8[facility] HermannCHEM AOYRH8308-43-89 10:37:0011.8[facility] HermannCHEM IEPLJ0022-22-36 10:37:0059[facility] HermannCHEM XEURZ3879-96-90 10:37:002.9[facility] XvyuxqkFFGINJEXQQ4371-16-27 10:37:006.8 [facility] MlrrfsnZUAETRBPGY1560-63-44 10:37:004.47[facility] HermannHEMATOLOGY 2020-08-29 10:37:0010.6[facility] JjsrwwaIUXJQLZVKU3020-50-30 10:37:0034.0[facility] IbhyxwnZACXUUWUYA5215-02-59 10:37:0076.1[facility] HicrlipHFIPHFYIUU4980-65-39 10:37:00 Test Item Value Reference Range Interpretation Comments MCH (test code = MCH) 23.8 pg 27.0-31.0 [facility] NmqccmqKXQPNPHYKA7357-57-35 10:37:0031.3[facility] HermannHEMATOLOGY 2020-08-29 10:37:0018.2[facility] FvmevzuPLDDVKYCNY4722-33-74 10:37:00955Womxfupo SncuebbJIWXLYXEZF5354-12-44 10:37:007.5[facility] MkojnpjNACWXZIRTK0168-83-79 10:37:00 Test Item Value Reference Range Interpretation Comments PT (test code = PT) 12.8 s 12.0-14.7 [facility] FjjehxsAIRRJEVFWW1087-65-43 10:37:00 Test Item Value Reference Range Interpretation Comments INR (test code = INR) 0.97 1 0.85-1.17 [facility] TkhlnrzMRZUVJUGHO5386-12-96 10:37:00 Test Item Value Reference Range Interpretation Comments PTT (test code = PTT) 25.0 s 22.9-35.8 [facility] KtataimGXYFOUOWMS8474-53-07 10:37:0070.5[facility] HermannHEMATOLOGY 2020-08-29 10:37:0018.8[facility] OvdkuevOKLGBSPVYZ3512-76-00 10:37:009.5[facility] RneofkzJWWXNJIYQC6622-32-63 10:37:000.9[facility] NbmfcpiXPFXVLDFQB9644-60-61 10:37:000.3[facility] KxklpvwAHEEJRJZZM6114-79-29 10:37:004.8[facility] HOPUAJVBAT0454-80-72 10:37:001.3[facility] BtmlrcwJPYIQUYHKH7127-57-05 10:37:000.6 [facility] XtyevoeYRFXBGXCVA3390-06-33 10:37:000.1[facility] HermannHEMATOLOGY 2020-08-29 10:37:001+ *ABN*(08/29/20 5:37 AM)[facility] PsudoeuJWAHTOOIPF8507-48-77 10:37:00Not Detected (08/29/20 5:37 AM)[facility] HermannBLOOD BANK RESULTS 2020-08-29 10:37:00Negative (08/29/20 5:37 AM)[facility] HermannCHEM CXZEZ7075-67-51 10:37:96208Utdktctu HermannCHEM FOVYQ3471-07-01 10:37:0028[facility] HermannCHEM UICJS3679-85-64 10:37:001.01[facility] HermannCHEM QFOUP9761-19-08 10:37:95785 [facility] HermannCHEM JXJLJ7369-17-94 10:37:003.8[facility] HermannCHEM PANEL 2020-08-29 10:37:09899Agunotmi HermannCHEM QHSZS0984-48-98 10:37:0028[facility] HermannCHEM DCGID2074-98-27 10:37:009.8[facility] HermannCHEM ZAYWF3251-03-37 10:37:0011.8[facility] HermannCHEM ALLOI1111-24-02 10:37:0059[facility] HermannCHEM PXZHG9196-84-77 10:37:002.9[facility] MkqyjalIQPIBXLNMY6845-05-80 10:37:006.8 [facility] KrpuupoJHMKQFCROK8387-39-77 10:37:004.47[facility]annHEMATOLOGY 2020-08-29 10:37:0010.6[facility] RgnhawsSUKEMTDEAX0891-00-09 10:37:0034.0[facility] JwzxsodGRPMLYMXFL2711-71-21 10:37:0076.1[facility] BkjluwtCVHFTARXLI1209-53-46 10:37:00 Test Item Value Reference Range Interpretation Comments MCH (test code = MCH) 23.8 pg 27.0-31.0 [facility] TjnjbbaZEUJQECUPX0887-11-58 10:37:0031.3[facility] HermannHEMATOLOGY 2020-08-29 10:37:0018.2[facility] NliflayBFWLRKBCYD8032-24-94 10:37:58537Kyzfqzff DgbisquYEYQNVAUUA1964-88-42 10:37:007.5[facility] MzcgkstDLDTDNQGKG7217-05-63 10:37:00 Test Item Value Reference Range Interpretation Comments PT (test code = PT) 12.8 s 12.0-14.7 [facility]NthldbeTKMSHQEKGR4888-76-85 10:37:00 Test Item Value Reference Range Interpretation Comments INR (test code = INR) 0.97 1 0.85-1.17 [facility] HospitalUgsqbshRIGOZPSHTB6239-54-46 10:37:00 Test Item Value Reference Range Interpretation Comments PTT (test code = PTT) 25.0 s 22.9-35.8 [facility] SfecgcaEFZNLGGEYS7010-59-33 10:37:0070.5[facility] HermannHEMATOLOGY 2020-08-29 10:37:0018.8[facility] TmcnsyuGDNESWBXOF1142-95-15 10:37:009.5[facility] KhmorwtBPVCIFAEWX8150-41-33 10:37:000.9[facility] SgohiqpYRDJWUFECI8686-27-87 10:37:000.3[facility] ElhhqwsIQBESWPUTV9925-95-71 10:37:004.8[facility] QLKXDRGNBC3004-00-37 10:37:001.3[facility] TwjmmxaPNNSNPVSLM8868-73-65 10:37:000.6 [facility] TaaeqqqPSIGKYJDHM7927-19-22 10:37:000.1[facility] HermannHEMATOLOGY 2020-08-29 10:37:001+ *ABN*(08/29/20 5:37 AM)[facility] ClgifdvVTCDRCZAKZ3679-58-42 10:37:00Not Detected (08/29/20 5:37 AM)[facility] HospitalarielNOV[facility]TH[facility] HOSPITALDIA, GC, TV,PCR, IN NSDGW1204-24-95 15:38:00 Test Item Value Reference Range Interpretation Comments FT (test code = CHTR) Not detected (qualifier Not Detected N value) FT (test code = Not detected (qualifier Not Detected N NGONO) value) FT (test code = TRVG) Not detected (qualifier Not Detected N value) URINALYSIS WITH JHTKSQAZDSD4417-59-05 10:57:00 Test Item Value Reference Range Interpretation Comments Color (test code = UCOLR) Dk. Yellow Clarity (test code = UCLAR) Hazy Glucose (test code = UGLUC) NEGATIVE NEGATIVE N Bilirubin (test code = UBILI) NEGATIVE NEGATIVE N Ketones (test code = UKET) NEGATIVE NEGATIVE N Specific [place] (test code = 1.025 1.005-1.030 A USPGR) [...]
[2021-10-03] MEDS ORDERED: IPRATROPIUM BROM 0.5MG/2.5ML ONE (15:38)
[2021-10-03] MEDS ORDERED: ALBUTEROL 2.5 MG/3 ML NEB SOL ONE (15:38)
[2021-10-03] MEDS ORDERED: METHYLPREDNISOLONE 125 MG INJ ONE (15:38)
--- NOTE | 2021-10-03 16:11 | RAD REPORT ---
EXAM DESCRIPTION: RAD - Chest Single View - 10/03/2021 4:04 pm CLINICAL HISTORY: SOB COMPARISON: Chest Single View dated 10/01/2021; Chest Single View dated 09/20/2021; Chest Single View d ated 09/11/2021; Chest Single View dated 08/31/2021 FINDINGS: Lines: None. Lungs: No evidence of edema or pneumonia. Pleural: No significant pleural effusions or pneumothorax. Cardiac: Cardiomegaly Bones: No acute fractures. Bilateral shoulder arthroplasties. Other: IMPRESSION: No acute cardiopulmonary disease.
[2021-10-03 16:17] LABS: Absolute Lymphocytes (CBC) 1.1 K/uL (0.7-4.9); Hematocrit 29.8 % (36.0-45.0); Lymphocytes % 17.1 % (15.3-44.8); MPV 6.8 fL (7.6-11.3); RBC Red Blood Cell Count 4.09 M/uL (3.86-4.86)
[2021-10-03 16:28] LABS: Protime INR 1.04
[2021-10-03 16:35] LABS: Magnesium 2.2 mg/dL (1.8-2.4); Potassium 3.1 mmol/L (3.5-5.1); Troponin High Sensitivity 16.1 pg/mL (<58.9)
--- NOTE | 2021-10-03 17:49 | ER ---
Nurse's Notes [facility] Name: Fawn Fleming Age: 66 yrs Sex: Female : 1955 Arrival Date: 10/03/2021 Time: 13:47 Bed 8 Private MD: Diagnosis: COPD/ Chronic obstructive pulmonary disease with (acute) exacerbation;Hypokalemia Presentation: 10/03 14:24 Chief complaint: Patient states: can't catch my breath, SOB on exertion and feels like iw she's gonna faint, has COPD, started today. Coronavirus screen: At this time, the client does not indicate any symptoms associated with coronavirus-19. Ebola Screen: Patient negative for fever greater than or equal to 101.5 degrees Fahrenheit, and additional compatible Ebola Virus Disease symptoms Patient denies exposure to infectious person. Patient denies travel to an Ebola-affected area in the 21 days before illness onset. No symptoms or risks identified at this time. Initial Sepsis Screen: Does the patient meet any 2 criteria? No. Patient's initial sepsis screen is negative. Does the patient have a suspected source of infection? No. Patient's initial sepsis screen is negative. Risk Assessment: Do you want to hurt yourself or someone else? Patient reports no desire to harm self or others. Onset of symptoms was October 03, 2021. 14:24 Method Of Arrival: Ambulatory iw 14:24 Acuity: BLAYNE 3 iw Historical: - Allergies: 14:25 Bactrim DS; iw 14:25 Fentanyl; iw 14:25 Reglan; iw 14:25 Stadol; iw 14:25 sulfamethoxazole (bulk); iw 14:25 TRIMETHOPRIM; iw 14:25 butorphanol tartrate; iw - PMHx: 14:25 Anxiety; Atrial Fib; Bipolar disorder; Chronic pain; COPD; esophageal varices; iw Hepatitis; HIV; Hypertension; Migraines; Panic Attacks; - PSHx: 14:25 Appendectomy; Bilateral shoulder repair; Cholecystectomy; hernia repair; R wrist SX; iw - Immunization history:: Adult Immunizations unknown. - Social history:: Smoking status: unknown. Screenin:00 Abuse screen: Denies threats or abuse. Denies injuries from another. Nutritional jl7 screening: No deficits noted. Tuberculosis screening: No symptoms or risk factors identified. Fall Risk IV access (20 points). Total Hauser Fall Scale indicates No Risk (0-24 pts). Assessment: 15:00 General: Appears in no apparent distress. uncomfortable, Behavior is cooperative, jl7 agitated. Pain: Complains of pain in MARTIN. Neuro: Level of Consciousness is awake, alert, obeys commands, Oriented to person, place, time, situation. Cardiovascular: Patient's skin is warm and dry. Rhythm is regular. Respiratory: Airway is patent Respiratory effort is even, unlabored, Respiratory pattern is regular, symmetrical, Audible wheezes. Derm: Skin is pink, warm \T\ dry. Vital Signs: 14:26 BP 143 / 86; Pulse 66; Resp 20; Temp 97.5; Pulse Ox 96% on R/A; Weight 95.25 kg; Height iw 5 ft. 4 in. (162.56 cm); 14:26 Body Mass Index 36.05 (95.25 kg, 162.56 cm) iw ED Course: 13:47 Patient arrived in ED. as 14:25 Triage completed. iw 14:42 Justus Neil PA is PHCP. cp 14:42 Liz Otoole MD is Attending Physician. cp 14:48 Jesica Ramos RN is Primary Nurse. jl7 15:00 Patient has correct armband on for positive identification. Bed in low position. Call jl7 light in reach. Side rails up X 1. Client placed on continuous cardiac and pulse oximetry monitoring. NIBP monitoring applied. 16:00 Initial lab(s) drawn, by me, sent to lab. Inserted saline lock: 22 gauge in left wrist, jl7 using aseptic technique. Blood collected. 16:06 XRAY Chest (1 view) In Process Unspecified. EDMS Administered Medications: 16:00 Drug: Albuterol - atroVENT (ipratropium) (3:1) (2.5 mg - 0.5 mg) 3 ml Route: Nebulizer; jl7 18:16 Follow up: Response: No adverse reaction jl7 16:10 Drug: SOLU-Medrol (methylPrednisoLONE) 125 mg Route: IVP; Site: left wrist; jl7 18:16 Follow up: Response: No adverse reaction jl7 16:32 Not Given (Patient Refused): Tylenol 1000 mg PO once jl7 16:33 Not Given (Other Intervention Used): morphine 4 mg IVP once cp 18:00 Drug: Potassium Effervescent Tablet 50 mEq Route: PO; jl7 18:15 Follow up: Response: Medication administered at discharge. jl7 18:00 Drug: morphine 4 mg Route: IVP; Site: left wrist; jl7 18:15 Follow up: Response: Medication administered at discharge. jl7 18:00 Drug: Potassium Effervescent Tablet 25 mEq Route: PO; jl7 18:15 Follow up: Response: Medication administered at discharge. jl7 Medication: 15:00 VIS not applicable for this client. jl7 Outcome: 17:48 Discharge ordered by MD. cp 18:31 Patient left the ED. iw 18:36 Discharged to home ambulatory. jl7 18:36 Condition: stable 18:36 Discharge instructions given to patient, Instructed on discharge instructions, follow up and referral plans. medication usage, Demonstrated understanding of instructions, follow-up care, medications, Prescriptions given X 1. Signatures: Dispatcher [employer] EDMS Radha Simons Irene RN ASHLEY iw Justus Neil PA PA Jesica Buenrostro RN RN jl7 Corrections: (The following items were deleted from the chart) 16:32 10:00 Albuterol - atroVENT (ipratropium) (3:1) (2.5 mg - 0.5 mg) 3 ml Nebulizer jl7 jl7
--- NOTE | 2021-10-03 17:49 | EDPHYS ---
Physician Documentation [facility] Name: Fawn Fleming Age: 66 yrs Sex: Female : 1955 Arrival Date: 10/03/2021 Time: 13:47 Bed 8 Private MD: ED Physician Liz Otoole HPI: 10/03 15:00 This 66 yrs old Female presents to ER via Ambulatory with complaints of Shortness Of cp Breath. 15:00 The patient has shortness of breath at rest. Onset: The symptoms/episode began/occurred cp today. Duration: The symptoms are continuous, and are steadily getting worse. Associated signs and symptoms: Pertinent positives: non-productive cough, headache, Pertinent negatives: chest pain, diaphoresis, fever, vomiting. Severity of symptoms: in the emergency department the symptoms are unchanged despite home interventions. The patient has experienced similar episodes in the past, chronically. Historical: - Allergies: 14:25 Bactrim DS; iw 14:25 Fentanyl; iw 14:25 Reglan; iw 14:25 Stadol; iw 14:25 sulfamethoxazole (bulk); iw 14:25 TRIMETHOPRIM; iw 14:25 butorphanol tartrate; iw - PMHx: 14:25 Anxiety; Atrial Fib; Bipolar disorder; Chronic pain; COPD; esophageal varices; iw Hepatitis; HIV; Hypertension; Migraines; Panic Attacks; - PSHx: 14:25 Appendectomy; Bilateral shoulder repair; Cholecystectomy; hernia repair; R wrist SX; iw - Immunization history:: Adult Immunizations unknown. - Social history:: Smoking status: unknown. ROS: 15:05 Constitutional: Negative for body aches, chills, fever, poor PO intake. cp 15:05 Eyes: Negative for injury, pain, redness, and discharge. cp 15:05 ENT: Negative for drainage from ear(s), ear pain, sore throat, difficulty swallowing, difficulty handling secretions. 15:05 Cardiovascular: Negative for chest pain, edema, palpitations. 15:05 Respiratory: Positive for cough, with no reported sputum, shortness of breath, at rest. 15:05 Abdomen/GI: Negative for abdominal pain, vomiting, diarrhea, constipation. 15:05 Back: Negative for pain at rest, pain with movement. 15:05 Neuro: Positive for headache, Negative for altered mental status, dizziness, weakness. 15:05 All other systems are negative. Exam: 15:10 Constitutional: The patient appears in no acute distress, alert, awake, cp non-diaphoretic, non-toxic, well developed, well nourished. 15:10 Head/Face: Normocephalic, atraumatic. cp 15:10 Eyes: Periorbital structures: appear normal, Conjunctiva: normal, no exudate, no injection, Sclera: no appreciated abnormality, Lids and lashes: appear normal, bilaterally. 15:10 ENT: External ear(s): are unremarkable, Ear canal(s): are normal, clear, TM's: dullness, bilaterally, Nose: is normal, Mouth: Lips: moist, Oral mucosa: pink and intact, moist, Posterior pharynx: Airway: no evidence of obstruction, patent, Tonsils: are normal in appearance, swelling, is not appreciated, erythema, is not appreciated, exudate, is not appreciated. 15:10 Neck: ROM/movement: is normal, is supple, without pain, no range of motions limitations. 15:10 Chest/axilla: Inspection: normal. 15:10 Cardiovascular: Rate: normal, Rhythm: regular, Edema: is not appreciated, JVD: is not appreciated. 15:10 Respiratory: the patient does not display signs of respiratory distress, Respirations: normal, no use of accessory muscles, no retractions, labored breathing, is not present, Breath sounds: bronchial sounds, that are mild, are heard diffusely, decreased breath sounds, that are mild, throughout, stridor, is not appreciated. 15:10 Abdomen/GI: Inspection: abdomen appears normal, Palpation: abdomen is soft and non-tender, in all quadrants. 15:10 Back: pain, is absent, ROM is normal. 15:10 Neuro: Orientation: to person, place \\T\\ time. Mentation: is normal. 16:45 ECG was reviewed by the Attending Physician. cp Vital Signs: 14:26 BP 143 / 86; Pulse 66; Resp 20; Temp 97.5; Pulse Ox 96% on R/A; Weight 95.25 kg; Height iw 5 ft. 4 in. (162.56 cm); 14:26 Body Mass Index 36.05 (95.25 kg, 162.56 cm) iw MDM: 14:59 Patient medically screened. cp 15:00 Differential diagnosis: Bronchitis CHF exacerbation, Chronic Obstructive Pulmonary cp Disease Myocardial Infarction pneumonia, Pneumothorax pulmonary edema, Pulmonary Embolism Sepsis Unstable Angina. 17:48 Data reviewed: vital signs, nurses notes, lab test result(s), EKG, radiologic studies, cp plain films. 17:48 Test interpretation: by ED physician or midlevel provider: ECG, plain radiologic cp studies. 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 Response to treatment: the patient's symptoms have markedly improved after treatment, VSS. Oxygen sats maintaining above 94% on RA. Patient reports having home oxygen but left it at home prior to coming to ED. Will discharge to home for continued monitoring. 10/03 14:52 Order name: Basic Metabolic Panel; Complete Time: 17:18 10/03 17:18 Interpretation: Normal except: K 3.1; CL 108; GLUC 114; BUN 31; GFR 51. cp 10/03 14:52 Order name: CBC with Diff; Complete Time: 16:31 10/03 16:31 Interpretation: Normal except: HGB 9.5; HCT 29.8; MCV 72.8; MCH 23.1; MCHC 31.8; RDW cp 18.0; MPV 6.8. 10/03 14:52 Order name: Magnesium; Complete Time: 17:18 cp 10/03 14:52 Order name: NT PRO-BNP; Complete Time: 17:18 cp 10/03 17:18 Interpretation: Abnormal: NT PRO-BNP 2644. 10/03 14:52 Order name: PT-INR; Complete Time: 16:31 cp 10/03 14:52 Order name: Troponin HS; Complete Time: 17:18 10/03 14:52 Order name: XRAY Chest (1 view); Complete Time: 16:31 cp 10/03 14:52 Order name: COVID-19 SARS RT PCR (Document "Date of Onset" if Symptomatic); Complete cp Time: 17:48 10/03 17:48 Interpretation: Reviewed. 10/03 14:52 Order name: Influenza Screen (a \\T\\ B); Complete Time: 17:18 10/03 14:52 Order name: EKG; Complete Time: 14:53 10/03 14:52 Order name: Cardiac monitoring; Complete Time: 16:28 10/03 14:52 Order name: EKG - Nurse/Tech; Complete Time: 16:28 10/03 14:52 Order name: IV Saline Lock; Complete Time: 16:28 10/03 14:52 Order name: Labs collected and sent; Complete Time: 16:28 10/03 14:52 Order name: O2 Per Protocol; Complete Time: 16:28 10/03 14:52 Order name: O2 Sat Monitoring; Complete Time: 16:28 EC:45 Rate is 63 beats/min. Rhythm is regular. TX interval is normal. QRS interval is normal. cp QT interval is normal. T waves are Inverted in lead aVR. Interpreted by me. Reviewed by me. Administered Medications: 16:00 Drug: Albuterol - atroVENT (ipratropium) (3:1) (2.5 mg - 0.5 mg) 3 ml Route: Nebulizer; jl7 18:16 Follow up: Response: No adverse reaction jl7 16:10 Drug: SOLU-Medrol (methylPrednisoLONE) 125 mg Route: IVP; Site: left wrist; jl7 18:16 Follow up: Response: No adverse reaction jl7 16:32 Not Given (Patient Refused): Tylenol 1000 mg PO once jl7 16:33 Not Given (Other Intervention Used): morphine 4 mg IVP once 18:00 Drug: Potassium Effervescent Tablet 50 mEq Route: PO; jl7 18:15 Follow up: Response: Medication administered at discharge. jl7 18:00 Drug: morphine 4 mg Route: IVP; Site: left wrist; jl7 18:15 Follow up: Response: Medication administered at discharge. jl7 18:00 Drug: Potassium Effervescent Tablet 25 mEq Route: PO; jl7 18:15 Follow up: Response: Medication administered at discharge. [email or web address] Disposition Summary: 10/03/21 17:48 Discharge Ordered Location: Home cp Problem: an acute exacerbation cp Symptoms: have improved cp Condition: Stable cp Diagnosis - COPD/ Chronic obstructive pulmonary disease with (acute) exacerbation cp - Hypokalemia cp Followup: cp - With: Private Physician - When: 2 - 3 days - Reason: Recheck today's complaints Discharge Instructions: - Discharge Summary Sheet cp - Potassium Content of Foods cp - Chronic Obstructive Pulmonary Disease Exacerbation cp - Hypokalemia cp Forms: - Medication Reconciliation Form cp - Thank You Letter cp - Antibiotic Education cp - Prescription Opioid Use cp Prescriptions: - Prednisone 20 mg Oral Tablet - take 2 tablets by ORAL route once daily for 5 days; 10 tablet; Refills: 0, cp Product Selection Permitted Signatures: Dispatcher [employer] Jacquelin Rios, RN RN Justus Juarez PA PA Jesica Buenrostro RN RN [email or web address]
[2021-10-03] MEDS ORDERED: MORPHINE 4 MG/ML SYR ONE (18:08)
[2021-10-03] MEDS ORDERED: POTASSIUM 25 MEQ EFFERV TAB ONE (18:08)
[2021-10-03 21:37] VITALS: BP 143/86; TEMP 97.5; O2SAT 96
--- NOTE | 2021-10-04 14:47 | EKG ---
Test Date: 2021-10-03 Test Time: 16:37:53 Science Technician: KAVITA MEASUREMENT RESULTS: Intervals: Rate: 63 IN: 172 QRSD: 82 QT: 458 QTc: 468 [place]: P: 77 IN: 172 QRS: 7 T: 35 INTERPRETIVE STATEMENTS: Normal sinus rhythm Left ventricular hypertrophy with repolarization abnormality Abnormal ECG Compared to ECG 10/01/2021 20:36:41 Prolonged QT interval no longer present Electronically Signed On 10-04-21 14:46:10 CDT by Mike Lund
== END 2021-10-03 18:31 | disposition home or self-care (01) ==
LOC: ER 13:45
DX: J44.1 Chronic obstructive pulmonary disease with (acute) exacerbation (principal); E87.6 Hypokalemia; F31.9 Bipolar disorder, unspecified; Z21 Asymptomatic human immunodeficiency virus [HIV] infection status; Z88.1 Allergy status to other antibiotic agents; Z88.2 Allergy status to sulfonamides; Z88.5 Allergy status to narcotic agent; Z88.8 Allergy status to other drugs, medicaments and biological substances; Z20.822 Contact with and (suspected) exposure to COVID-19
CPT/HCPCS: 93005; 85025; 80048; 36415; 83735; 85610; 84484; 83880; 87804 ×2; 71045; 94640; 96375; 96374; 99284; U0003; J2930

== ENCOUNTER 2021-10-11 11:44 | Inpatient (IN) | payer OTHER ==
[~2021-10-11 11:44] MED LIST: REGADENOSON 0.4 MG/5 ML SYR IV ONE
--- OUTSIDE RECORDS SUMMARY | 2021-10-11 11:51 | XMS REPORT | Continuity of Care Document ---
:1955 Author Organization [facility] t Address [address] [place] [address] Care Team Providers Name Role Phone Francisco Rahman Primary Care Physician Ashely Attending Clinician Unavailable JENNY Attending Clinician Unavailable SELF Attending Clinician Unavailable Ronald DHILLON Attending Clinician [facility] Attending Clinician Unavailable Ap JENKINS Attending Clinician Doctor Unassigned, Name Attending Clinician Unavailable Yazmin JENKINS Attending Clinician Luisana Maharaj NP Attending Clinician Prabhu SANCHEZ Attending Clinician Unavailable Devin [employer], R Attending Clinician Clark SANCHEZ Attending Clinician Unavailable Diana SANCHEZ Attending Clinician Unavailable Remigio JENKINS V. Attending Clinician HEMATPOUR Attending Clinician Unavailable DO SYL Attending Clinician Unavailable Kristen Rahman Admitting Clinician Unavailable Ashely Admitting Clinician Unavailable YAZMIN Admitting Clinician Unavailable DO SYL Admitting Clinician Unavailable Payers Payer Name Policy Type Policy Number Effective Date Expiration Date S gabino [facility] [id number] 2012 [employer] 00:00:00 [employer] [id number] 2019 BEHAVIORAL 00:00:00 SOL[employer] [place]ICAID OF [place] [id number] 2020 00:00:00 Problems Condition Condition Condition Status Onset Resolution Last Treating Co mments Source Name Details Category Date Date Treatment Clinician Date Gastropare Gastropare Disease Active Overview : Methodi sis sis 4-[address] 00:00: [facility] 00 note l might be different from the original. Added automatic ally from request for surgery [id number] Dysphagia Dysphagia Disease Active Overview: Methodi 4-[address] 00:00: [facility] 00 note l might be different from the original. 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:00: [place] shoulder shoulder 00 Medica l arthroplas arthroplas Br anch ty ty Posttrauma Posttrauma Disease Active U nivers tic stress tic stress 09-27 it y of disorder disorder 00:00: [place] [facility] 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 00:00: [place] virus virus Medical (HIV) (HIV) Branch disease disease Bipolar 2 Bipolar 2 Disease Active Uni vers disorder disorder 11-18 ity of 00:00: [place] [facility] Chronic Chronic Disease Active Univers hepatitis hepatitis 11-18 ity of C C 00:00: [place] [facility] Hypertensi Hypertensi Disease Active U nivers on on 11-18 ity of 00:00: [place] [facility] Allergies, Adverse Reactions, Alerts Allergy Allergy Status Severity Reaction(s) Onset Inactive Treating Comm ents Source Name Type Date Date Clinician sulfamet DA Active [facility] N/V [facility] hoxazole 1-25 Clear 00:00: Garcia 00 [facility] trimetho DA Active SV [facility] prim 1-25 Clear 00:00: Garcia [facility] codeine DA Active SV N/V [facility] 1-25 Clear 00:00: Garcia [facility] Metoclop Propensi Active [place] ramide ty [...] Date Stop Date Source Natural father Hypertension [facility] [place] [facility] Natural father Kidney disease [facility] Natural father Diabetes [facility] Natural father Other - see comments [facility] Natural father [facility] Natural mother Cancer [facility] Social History Social Habit Start Date Stop Date Quantity Comments [facility] Alcohol Comment History of tobacco Smoker Method ist use Hospital History SDOH Jew Alcohol Frequency Hospita l History SDOH Jew Alcohol Std Drinks Hospit al History SDOH Jew Alcohol Binge Hospital Exposure to Not sure University of SARS-CoV-2 (event) [facility] Alcohol intake 2021-07-14 2021-07-14 Ex-drinker [facility] 00:00:00 00:00:00 (finding) Tobacco use and 2020-10-31 2020-10-31 Smokeless tobacco [facility] exposure 00:00:00 00:00:00 non-user Cigarettes smoked 2020-09-05 2020-09-[address] current (pack per 00:00:00 00:00:00 Hospita l day) - Reported Cigarette 2020-09-05 2020-09-05 Jew pack-years 00:00:00 00:00:00 Hospital Tobacco Comment 2015-02-14 [...] Medication? Clinician (SIG) Name Name buPROPion Yes [id number] 150mg Take 1 U nivers XL 4-12 tablet by ity of (WELLBUTRIN 00:00: mouth [place] XL) 150 mg 00 daily. Medical 24 hr Branch tablet busPIRone Yes [id number] 30mg Take 1 Un matt 30 mg 4-12 tablet by ity of tablet 00:00: mouth 2 [place] 00 (two) Medical times Branch daily. SERTraline Yes [id number] 200mg Take 2 Univers 100 mg 4-12 tablets by ity of tablet 00:00: mouth [place] 00 daily. Medical Branch raltegravir Yes [id number] 400mg Take 1 Univers (ISENTRESS) 3-28 tablet by ity of 400 mg 00:00: mouth 2 [place] tablet 00 (two) Medical times Branch daily. LORazepam 1 Yes [id number] 1mg Take 1 Univers mg tablet 3-21 tablet by ity o f 00:00: mouth 3 [place] 00 (three) Medical times Branch daily as needed (anxiety). raltegravir Yes 400mg Q.5D Take 400 U T (Isentress) 2-22 mg by Health 400 MG 09:09: mouth 2 tablet 52 (two) times a day. LORazepam 1 2021- No [id number] 1mg Take 1 Univers mg tablet 2-21 [...] times a tablet day. buPROPion 2021- No [id number] 150mg Take 1 Univers XL -24 -12 tablet by ity of (WE[place] 00:00[place] XL[place] 150 mg 00 :00 daily. Medical 24 hr Branch tablet busPIRone 2021- No [id number] 30mg Take 1 U nivers 30 mg 24 -12 tablet by ity of tablet 00:00: 00:00 mouth 2 [place] 00 :00 (two) Medical times Branch daily. SERTraline 2021- No [id number] 200mg Take 2 Univers 100 mg 24 -12 tablets by ity of tablet 00:00: 00:00 mouth [place] 00 :00 daily. Medical Branch emtricitabi Yes [id number] Take one Univers ne-tenofovi 1-20 po daily ity of r alafen 00:00: [place] (DESCOVY) 00 Medical tablet Branch raltegravir 2021- No [id number] 400mg Take 1 Univers (ISENTRESS) -12 03-28 tablet by it y of 400 mg 00:00: 00:00 mouth 2 [place] tablet 00 :00 (two) Medical times Branch daily. metoprolol Yes [id number] Take 1 [facility] tartrate 7-26 tablet Health (Lopressor) 00:00: (100 mg 100 MG 00 total) by tablet mouth 2 (two) times a day AND 0.5 tablets (50 mg total) every night. metoprolol Yes [id number] Take 1 [facility] tartrate 7-26 tablet Health [...] (affected area in groin) hydrALAZINE Yes 50mg Q.[id number] Take 50 mg Methodi (APRESOLINE 7-[id number] ) 50 MG [...] Hospita tablet 25 daily. l nystatin-tr Yes [id number] Apply to [facility] 11-25 area(s) 3 ity of cream 00:00: (three) [place] 00 times Medical daily. Branch budesonide- 2020- No 1{puff} QD Inhale 1 Methodi formoteroL 11-14 06-[address] (SYMBICORT) 14:37: 00:00 morning. H ospita 160-4.5 02 :00 l mcg/actuati on inhaler hydrALAZINE Yes [id number] 50mg Q.[id number] Take 1 [facility] (Apresoline 6-11 [id number] tablet (50 Health ) 50 MG 00:00: 3D mg total) tablet 00 by mouth 3 (three) times a day. hydrALAZINE Yes [id number] 50mg Q.[id number] Take 1 [facility] (Apresoline 6-11 [id number] tablet (50 Health ) 50 MG 00:00: [...] % 00:00: ointment 00 nystatin 2020- No [id number] Q.25D Take 5 mL Methodi (MYCOSTATIN 10-06 [...] ia 4-10 (Same as: l 14:00: Norvasc) [place] 00 emtricitabi No Notes: Caesar lisa ne 200 MG / 4-10 (Same as: l tenofovir 14:00: Descovy) Herm ariel alafenamide 00 Non-formul 25 MG Oral nancy Tablet [Descovy] pantoprazol No Notes: Caesar lisa e 4-10 Tablet l 14:00: should not [place] 00 be chewed or crushed. (Same as: Protonix) Amiodarone No Notes: Memor ia 4-10 (Same as: l 14:00: Cordarone) Amlodipine No Notes: Memor ia 4-10 (Same as: l 14:00: Norvasc) [place] 00 emtricitabi No Notes: Caesar lisa ne 200 MG / 4-10 (Same as: l tenofovir 14:00: Descovy) Herm ariel alafenamide 00 Non-formul 25 MG Oral nancy Tablet [Descovy] Sertraline No Notes: Memor ia 4-10 (Same as: l 14:00: Zoloft) Sertraline No Notes: Memor ia 4-10 (Same as: l 14:00: Zoloft) [place] 00 pantoprazol No Notes: Caeasr lisa e 4-10 Tablet l 14:00: should not [place] 00 be chewed or crushed. (Same as: [...] e 4-10 Tablet l 14:00: should not [place] 00 be chewed or crushed. (Same as: Protonix) Amiodarone No Notes: Memor ia 4-10 (Same as: l 14:00: Cordarone) [place] 00 Amlodipine No Notes: Memor ia 4-10 (Same as: l 14:00: Norvasc) [place] 00 emtricitabi No Notes: Caesar lisa ne 200 MG / 4-10 (Same as: l tenofovir 14:00: Descovy) Herm ariel alafenamide 00 Non-formul 25 MG Oral nancy Tablet [Descovy] Sertraline No Notes: Memor ia 4-10 (Same as: l 14:00: Zoloft) [place] 00 pantoprazol No Notes: Caesar lisa e 4-10 Tablet l 14:00: should not [place] 00 be chewed or crushed. (Same as: Protonix) Amiodarone No Notes: Memor ia 4-10 (Same as: l 14:00: Cordarone) [place] Amlodipine No Notes: Memor ia 4-10 (Same as: l 14:00: Norvasc) [place] emtricitabi No Notes: Caesar lisa ne 200 MG / 4-10 (Same as: l tenofovir 14:00: Descovy) Herm ariel alafenamide 00 Non-formul 25 MG Oral nancy Tablet [Descovy] Sertraline No Notes: Memor ia 4-10 (Same as: l 14:00: Zoloft) [place] 00 pantoprazol No Notes: Caesar lisa e 4-10 Tablet l 14:00: should not [place] 00 be chewed or crushed. (Same as: Protonix) Amiodarone No Notes: Memor ia 4-10 (Same as: l 14:00: Cordarone) [place] 00 Amlodipine No Notes: Memor ia 4-10 (Same as: l 14:00: Norvasc) [place] 00 emtricitabi No Notes: Caesar lisa ne 200 MG / 4-10 (Same as: l tenofovir 14:00: Descovy) Herm ariel alafenamide 00 Non-formul 25 MG Oral nancy Tablet [Descovy] Sertraline No Notes: Memor ia 4-10 (Same as: l 14:00: Zoloft) [place] 00 pantoprazol No Notes: Caesar lias e 4-10 Tablet l 14:00: should not [...] M emoria 4-10 interfere l 02:00: w/enteral [place] feeds - Take 1 hr before or [...] 0.9% 4-10 (Same as: l 02:00: BD [place] Posiflush) Eliquis No Notes: Memoria 4-10 Same [...] Memoria 4-10 Same as: l 02:00: Eliquis [place] 00 Hydralazine No Notes: Caesar lisa Hydrochlori 4-10 (Same as: l de 50 MG 02:00: Apresoline Her mitchell Oral Tablet 00 ) May interfere w/enteral feedings Take With Food Sucralfate No Notes: May M emoria 4-10 interfere l 02:00: w/enteral [place] 00 feeds - Take 1 hr before or 2 hr after antacids, dairy pdt, meals & minerals - On empty stomach. For patients unable to swallow tablet, dissolve in 10mL - 30mL of water or juice and stir before giving. (Same As: Carafate) Saline No Notes: Memoria Flush 0.9% 4-10 (Same as: l 02:00: BD [place] 00 Posiflush) Eliquis No Notes: Memoria 4-10 Same as: l 02:00: Eliquis [place] Hydralazine No Notes: Caesar lisa Hydrochlori 4-10 (Same as: l de 50 MG 02:00: Apresoline Her mitchlel Oral Tablet 00 ) May interfere w/enteral feedings Take With Food Sucralfate No Notes: May M emoria 4-10 interfere l 02:00: w/enteral [place] 00 feeds - Take 1 hr before or 2 hr after antacids, dairy pdt, meals & minerals - On empty stomach. For patients unable to swallow tablet, dissolve in 10mL - 30mL of water or juice and stir before giving. (Same As: Carafate) Saline No Notes: Memoria Flush 0.9% 4-10 (Same as: l 02:00: BD [place] 00 Posiflush) Eliquis No Notes: Memoria 4-10 Same as: l 02:00: Eliquis [place] Hydralazine No Notes: Caesar lisa Hydrochlori 4-10 (Same as: l de 50 MG 02:00: Apresoline Her mitchell Oral Tablet 00 ) May interfere w/enteral feedings Take With Food Sucralfate No Notes: May M emoria 4-10 interfere l 02:00: w/enteral [place] 00 feeds - Take 1 hr before or 2 hr after antacids, dairy pdt, meals & minerals - On empty stomach. For patients unable to swallow tablet, dissolve in 10mL - 30mL of water or juice and stir before giving. (Same As: Carafate) Saline No Notes: Memoria Flush 0.9% 4-10 (Same as: l 02:00: BD [place] 00 Posiflush) Eliquis No Notes: Memoria 4-10 Same as: l 02:00: Eliquis [place] 00 Hydralazine No Notes: Caesar lisa Hydrochlori [...] not exceed l #3 00:12: 4gm/day of [place] 00 acetaminop hen. (Same as: Tylenol with Codeine # 3) acetaminoph No Notes: Do M emoria en-codeine 4-10 not exceed l #3 00:12: 4gm/day of [place] acetaminop hen. (Same as: Tylenol with Codeine # 3) acetaminoph No Notes: Do M emoria en-codeine 4-10 not exceed l #3 00:12: 4gm/day of [place] acetaminop hen. (Same as: Tylenol with Codeine # 3) acetaminoph No Notes: Do M emoria en-codeine 4-10 not exceed l #3 00:12: 4gm/day of [place] acetaminop hen. (Same as: Tylenol with Codeine [...] oria 4-09 tab, l 22:00: Route: PO, [place] Drug form: TAB, BID, Dosing Weight 97.273, kg, Start date: 08/29/20 17:00:00 CDT, Duration: 30 day, Stop date: 09/28/20 9:00:00 CDT metoprolol 2020-0 No 100 mg, 1 Me moria tartrate - tab, l 22:00: Route: PO, [place] 00 Drug form: TAB, BID, Dosing Weight [...] tartrate 4-09 tab, l 22:00: Route: PO, [place] 00 Drug form: TAB, BID, Dosing Weight [...] oria 4-09 tab, l 22:00: Route: PO, [place] 00 Drug form: TAB, BID, Dosing Weight [...] tartrate 4-09 tab, l 22:00: Route: PO, [place] Drug form: TAB, BID, Dosing Weight 97.273, [...] oria 4-09 tab, l 22:00: Route: PO, [place] 00 Drug form: TAB, BID, Dosing Weight [...] oria -09 tab, l 22:00: Route: PO, [place] 00 Drug form: TAB, BID, Dosing Weight 97.273, kg, Start date: 08/29/20 17:00:00 CDT, Duration: 30 day, Stop date: 09/28/20 9:00:00 CDT metoprolol 1-0 No 100 mg, 1 Me moria tartrate 4-09 tab, l 22:00: Route: PO, [place] 00 Drug form: TAB, BID, Dosing Weight [...] Notes: Memoria 4-09 (Same l 17:07: as:MORPhin [place] 00 e Sulfate) Morphine No Notes: Memoria 4-09 (Same l 17:07: as:MORPhin [place] 00 e Sulfate) Morphine No Notes: Memoria 4-09 (Same l 17:07: as:MORPhin [place] 00 e Sulfate) Morphine No Notes: Memoria 4-09 (Same l 17:07: as:MORPhin [place] 00 e Sulfate) Morphine No Notes: Memoria 4-09 (Same l 17:07: as:MORPhin [place] 00 e Sulfate) Morphine No Notes: Memoria 4-09 (Same l 17:07: as:MORPhin [place] 00 e Sulfate) Morphine No Notes: Memoria 4-09 (Same l 17:07: as:MORPhin [place] 00 e Sulfate) buPROPion No 150 mg, [...] 08-29 Drug form: l 15:40: INJ, ONCE, [place] 00 Stop date: 08/29/20 10:40:00 CDT neostigmine [...] 30 tab, 0 coated Refill(s), tablet Pharmacy: [facility], 162.56, cm, 08/29/20 5:30:00 CDT, Height, 97.273, kg, 08/29/20 5:30:00 CDT, Weight pantoprazol 2021-0 Yes 40 mg = 1 M emoria e 40 mg 4-09 tab, PO, l oral 15:27: Daily, # [place] enteric 00 30 tab, 0 coated Refill(s), tablet Pharmacy: [facility] 149, 162.56, cm, 08/29/20 5:30:00 CDT, Height, 97.273, kg, 08/29/20 5:30:00 CDT, Weight pantoprazol 2021-0 Yes 40 mg = 1 M emoria e 40 mg 4-09 tab, PO, l oral 15:27: Daily, # [place] enteric 00 30 tab, 0 coated Refill(s), tablet [facility], 162.56, cm, 08/29/20 5:30:00 CDT, Height, 97.273, kg, 08/29/20 5:30:00 CDT, Weight pantoprazol 1-0 Yes 40 mg = 1 M emoria e 40 mg 4-09 tab, PO, l oral 15:27: Daily, # [place] enteric 00 30 tab, 0 coated Refill(s), tablet [facility], 162.56, cm, 08/29/20 5:30:00 CDT, Height, 97.273, kg, 08/29/20 5:30:00 CDT, Weight pantoprazol 2021-0 Yes 40 mg = 1 M emoria e 40 mg 4-09 tab, PO, l oral 15:27: Daily, # [place] enteric 00 30 tab, 0 coated Refill(s), tablet [facility], 162.56, cm, 08/29/20 5:30:00 CDT, Height, 97.273, kg, 08/29/20 5:30:00 CDT, Weight pantoprazol 2021-0 Yes 40 mg = 1 M emoria e 40 mg 4-09 tab, PO, l oral 15:27: Daily, # [place] enteric 00 30 tab, 0 coated Refill(s), tablet Pharmacy: [facility] 149, 162.56, cm, 08/29/20 5:30:00 CDT, Height, 97.273, kg, 08/29/20 5:30:00 CDT, Weight pantoprazol 2020-0 Yes 40 mg = 1 M emoria e 40 mg 4-09 tab, PO, l oral 15:27: Daily, # [place] enteric 00 30 tab, 0 coated Refill(s), tablet Pharmacy: [facility] 149, 162.56, cm, 08/29/20 5:30:00 CDT, [...] Skylar nn 00 tab, 0 Refill(s), Pharmacy: [facility] 149, 162.56, cm, 08/29/20 5:30:00 CDT, Height, 97.273, kg, 08/29/20 5:30:00 CDT, Weight pantoprazol 2020-0 No 40 mg = 1 M emoria e 40 mg 4-09 tab, PO, l oral 15:26: Daily, # [place] enteric 00 30 tab, 0 coated Refill(s) tablet sucralfate 2020-0 Yes 1 gm = 1 Mem oria 1 g oral 4-09 tab, PO, l tablet 15:26: Q12H, # 28 Skylar nn 00 tab, 0 Refill(s), Pharmacy: [place] [id number], 162.56, cm, 08/29/20 5:30:00 CDT, Height, 97.273, [...] Skylar nn 00 tab, 0 Refill(s), Pharmacy: [facility] 149, 162.56, cm, 08/29/20 5:30:00 CDT, [...] Skylar nn 00 tab, 0 Refill(s), Pharmacy: [facility] 149, 162.56, cm, 08/29/20 5:30:00 CDT, Height, 97.273, kg, 08/29/20 5:30:00 CDT, Weight pantoprazol 2020-0 No 40 mg = 1 M emoria e 40 mg 4-09 tab, PO, l oral 15:26: Daily, # [place] enteric 00 30 tab, 0 coated Refill(s) tablet sucralfate 2020-0 Yes 1 gm = 1 Mem oria 1 g oral 4-09 tab, PO, l tablet 15:26: Q12H, # 28 Skylar nn 00 tab, 0 Refill(s), Pharmacy: [place] [id number], 162.56, cm, 08/29/20 5:30:00 CDT, Height, 97.273, kg, 08/29/20 5:30:00 CDT, Weight pantoprazol 2020-0 No 40 mg = 1 M emoria e 40 mg 4-09 tab, PO, l oral 15:26: Daily, # [place] enteric 00 30 tab, 0 coated Refill(s) tablet sucralfate 2020-0 Yes 1 gm = 1 Mem oria 1 g oral 4-09 tab, PO, l tablet 15:26: Q12H, # 28 Skylar nn 00 tab, 0 Refill(s), Pharmacy: [facility] 149, 162.56, cm, 08/29/20 5:30:00 CDT, [...] Skylar nn 00 tab, 0 Refill(s), Pharmacy: [facility] 149, 162.56, cm, 08/29/20 5:30:00 CDT, Height, 97.273, kg, 08/29/20 5:30:00 CDT, Weight Saline No Notes: Memoria Flush 0.9% 4-09 (Same as: l 15:25: BD [place] 00 Posiflush) Lorazepam No Notes: Memori a 4-09 (Same as: l 15:25: Ativan) Saline No Notes: Memoria Flush 0.9% 4-09 (Same as: l 15:25: BD [place] 00 Posiflush) Lorazepam No Notes: Memori a 4-09 (Same as: l 15:25: Ativan) Saline No Notes: Memoria Flush 0.9% 4-09 (Same as: l 15:25: BD [place] 00 Posiflush) Saline No Notes: Memoria Flush 0.9% 4-09 (Same as: l 15:25: BD [place] 00 Posiflush) Lorazepam No Notes: Memori a 4-09 (Same as: l 15:25: Ativan) [place] 00 Lorazepam No Notes: Memori a 4-09 (Same as: l 15:25: Ativan) Saline No Notes: Memoria Flush 0.9% 4-09 (Same as: l 15:25: BD [place] 00 Posiflush) Lorazepam No Notes: Memori a [...] Drug form: l mg + 15:00: INJ, [place] 00 Dosing Weight 97.3, kg, Start date: [...] Memori a 08-29 Route: l 14:01: IVP, [place] 00 Q5Min, Dosing Weight 97.273, kg, PRN Elevated BP, Start date: 08/29/20 9:01:00 CDT, Duration: 5 doses or times, Stop date: Limited # of times Acetaminoph 2020-0 No 1,000 mg, M emoria en 08-29 Route: PO, l 14:01: Drug form: [place] 00 TAB, ONCE, Dosing Weight 97.273, kg, [...] oria ne 08-29 Route: l 14:01: IVP, [place] 00 Q5Min, Dosing Weight 97.273, kg, PRN [...] Memori a 08-29 Route: l 14:01: IVP, [place] 00 Q5Min, Dosing Weight 97.273, kg, PRN Elevated BP, Start date: 08/29/20 9:01:00 CDT, Duration: 5 doses or times, Stop date: Limited # of times Acetaminoph 1-0 No 1,000 mg, M emoria en 08-29 Route: PO, l 14:01: Drug form: [place] 00 TAB, ONCE, Dosing Weight 97.273, kg, [...] oria ne 08-29 Route: l 14:01: IVP, [place] 00 Q5Min, Dosing Weight 97.273, kg, PRN [...] ia 08-29 Route: l 14:01: IVP, ONCE, [place] 00 Dosing Weight 97.273, kg, PRN Nausea [...] ia 08-29 Route: l 14:01: IVP, ONCE, [place] 00 Dosing Weight 97.273, kg, PRN Nausea [...] oria ne 08-29 Route: l 14:01: IVP, [place] 00 Q5Min, Dosing Weight 97.273, kg, PRN [...] oria ne 08-29 Route: l 14:01: IVP, [place] 00 Q5Min, Dosing Weight 97.273, kg, PRN [...] Memori a 4- Route: l 14:01: IVP, [place] 00 Q2MIN, Dosing Weight 97.273, kg, PRN [...] ia 4- Route: l 14:01: IVP, ONCE, [place] 00 Dosing Weight 97.273, kg, PRN Nausea & Vomiting, Start date: 08/29/20 9:01:00 CDT Naloxone 2021-0 No 0.4 mg, Memori a 4- Route: l 14:01: IVP, [place] 00 Q2MIN, Dosing Weight 97.273, kg, PRN [...] 08-29 Route: PO, l 14:01: Drug form: [place] 00 TAB, ONCE, Dosing Weight 97.273, kg, [...] Memori a 08-29 Route: l 14:01: IVP, [place] 00 Q2MIN, Dosing Weight 97.273, kg, PRN Narcotic Reversal, Start date: 08/29/20 9:01:00 CDT, Duration: 8 doses or times, Stop date: Limited # of times Ondansetron 1-0 No 4 mg, Memor ia 08-29 Route: l 14:01: IVP, ONCE, [place] 00 Dosing Weight 97.273, kg, PRN Nausea & Vomiting, Start date: 08/29/20 9:01:00 CDT Labetalol 1-0 No 10 mg, Memori a 08-29 Route: l 14:01: IVP, [place] 00 Q5Min, Dosing Weight 97.273, kg, PRN Elevated BP, Start date: 08/29/20 9:01:00 CDT, Duration: 5 doses or times, Stop date: Limited # of times Acetaminoph 2020-0 No 1,000 mg, M emoria en 08-29 Route: PO, l 14:01: Drug form: [place] 00 TAB, ONCE, Dosing Weight 97.273, kg, [...] lisa 08-29 Route: l 14:01: IVP, PRN, [place] 00 Dosing Weight 97.273, kg, PRN Benzodiaze [...] Drug form: l 10 13:15: INJ, Start [place] microgram 00 date: 08/29/20 8:15:00 CDT, Stop date: 08/29/20 9:15:00 CDT norepinephr 2020-0 No Route: IV, Memoria ine (ANES) 08-29 Drug form: l 10 13:15: INJ, Start Marty microgram date: 08/29/20 8:15:00 CDT, Stop date: 08/29/20 9:15:00 CDT norepinephr 2020-0 No Route: IV, Memoria ine (ANES) 08-29 Drug form: l 10 13:15: INJ, Start [place] microgram date: 08/29/20 8:15:00 CDT, Stop date: 08/29/20 9:15:00 CDT norepinephr 2020-0 No Route: IV, Memoria ine (ANES) 08-29 Drug form: l 10 13:15: INJ, Start Marty microgram date: 08/29/20 8:15:00 CDT, Stop date: 08/29/20 9:15:00 CDT norepinephr 2020-0 No Route: IV, Memoria ine (ANES) 08-29 Drug form: l 10 13:15: INJ, Start [place] microgram date: 08/29/20 8:15:00 CDT, Stop date: 08/29/20 9:15:00 CDT norepinephr 2020-0 No Route: IV, Memoria ine (ANES) 08-29 Drug form: l 10 13:15: INJ, Start [place] microgram 00 date: 08/29/20 8:15:00 CDT, Stop date: 08/29/20 9:15:00 CDT Sodium 2020-0 No Route: IV, Memor ia Chloride 4-09 Total l 0.9% IV 12:30: Volume: [place] (ANES) 1000 00 1,000, mL Start date: 08/29/20 7:30:00 CDT, Stop date: 08/29/20 8:30:00 CDT Sodium 1-0 No Route: IV, Memor ia Chloride 4-09 Total l 0.9% IV 12:30: Volume: [place] (ANES) 1000 00 1,000, mL Start date: 08/29/20 7:30:00 CDT, Stop date: 08/29/20 8:30:00 CDT Sodium 2021-0 No Route: IV, Memor ia Chloride 4-09 Total l 0.9% IV 12:30: Volume: [place] (ANES) 1000 00 1,000, mL Start date: [...] 4-09 Total l 0.9% IV 12:30: Volume: [place] (ANES) 1000 00 1,000, mL Start date: [...] PO, l Hydrochlori 11:42: Q24H, # 30 [place] de 150 MG 00 tab, 0 Extended Refill(s) Release Tablet 24 HR Yes 150 mg = 1 Memori a Bupropion -09 tab, PO, l Hydrochlori 11:42: Q24H, # 30 [place] de 150 MG 00 tab, 0 Extended [...] PO, l Hydrochlori 11:42: Q24H, # 30 [place] de 150 MG 00 tab, 0 Extended Refill(s) Release Tablet 24 HR 2020-0 Yes 150 mg = 1 Memori a Bupropion - tab, PO, l Hydrochlori 11:42: Q24H, # 30 [place] de 150 MG 00 tab, 0 Extended Refill(s) Release Tablet 24 HR 2020-0 Yes 150 mg = 1 Memori a Bupropion - tab, PO, l Hydrochlori 11:42: Q24H, # 30 [place] de 150 MG 00 tab, 0 Extended Refill(s) Release Tablet apixaban 5 2020-0 Yes 5 mg, PO, Me moria MG Oral 4 Q12H, tab, l Tablet 11:41: 0 [place] [Eliquis] 00 Refill(s), For Atrial Fibrilatio n apixaban 5 2020-0 Yes 5 mg, PO, Me moria MG Oral 08-29 Q12H, tab, l Tablet 11:41: 0 [place] [Eliquis] 00 Refill(s), For Atrial Fibrilatio n apixaban 5 2020-0 Yes 5 mg, PO, Me moria MG Oral 08-29 Q12H, tab, l Tablet 11:41: 0 Marty [Eliquis] 00 Refill(s), For Atrial Fibrilatio n apixaban 5 2020-0 Yes 5 mg, PO, Me moria MG Oral 4- Q12H, tab, l Tablet 11:41: 0 [place] [Eliquis] 00 Refill(s), For Atrial Fibrilatio n [...] tab, PO, l tablet 11:38: Daily, # [place] 00 90 tab, 3 Refill(s) AMIODarone 2020-0 Yes 200 mg = 1 M emoria 200 mg oral 4-09 tab, PO, l tablet 11:38: Daily, # [place] 00 90 tab, 3 Refill(s) AMIODarone 2020-0 Yes 200 mg = 1 M emoria 200 mg oral 4-09 tab, PO, l tablet 11:38: Daily, # [place] 00 90 tab, 3 Refill(s) AMIODarone 2020-0 Yes 200 mg = 1 M emoria 200 mg oral 4-09 tab, PO, l tablet 11:38: Daily, # [place] 00 90 tab, 3 Refill(s) AMIODarone 2020-0 Yes 200 mg = 1 M emoria 200 mg oral 4-09 tab, PO, l tablet 11:38: Daily, # [place] 00 90 tab, 3 Refill(s) AMIODarone 2020-0 [...] it y of mg tablet 08:18: (two) [place] 30 times Medical daily. Branch amiodarone Yes [...] Univers 90 4-14 ity of mcg/actuati 00:00: [place] on inhaler 00 Medical Branch albuterol Yes [...] Filled Immunization Date Status Comments [facility] e Immunization Name Name PFIZER COVID-19 2020-07-23 Completed Jew MRNA VACCINATION 00:00:00 [facility] PFIZER COVID-19 2020-07-02 Completed Jew MRNA VACCINATION 00:00:00 [facility] Influenza Virus 2017-03-08 Completed Universit y of Vaccine 00:00:00 [facility] Influenza Virus 2014-01-30 Completed Universit y of Vaccine (3+ yrs) 00:00:00 [facility] dical Branch Pneumococcal 13 2014-01-30 Completed Universit y of Conjugate, PCV13 00:00:00 [facility] dical (Prevnar 13) Branch Pneumococcal 2012-02-16 Completed University o f Polysaccharide, 00:00:00 [facility] PPSV23 (PNEUMOVAX) Branch Influenza Virus [...] f Polysaccharide, 00:00:00 [facility] ical PPSV23 (PNEUMOVAX) Branch PPD () 2001-10-04 Completed University of 00:00:00 [facility] Vital Signs Vital Name Observation Time Observation Value Comments Source Systolic blood 2021-07-14 15:18:00 142 mm[Hg] [facility] Diastolic blood 2021-07-14 15:18:00 76 mm[Hg] [facility] Heart rate 2021-07-14 15:18:00 61 /min [facility] height 2021-07-14 15:18:00 162.6 cm [facility] weight 2021-07-14 15:18:00 94.802 kg [facility] BMI 2021-07-14 15:18:00 35.87 kg/m2 [facility] Systolic blood 2021-08-21 13:13:00 191 mm[Hg] Univer sity of pressure [facility] Diastolic blood 2021-08-21 13:13:00 99 mm[Hg] Unive rsity of pressure [facility] Heart rate 2021-08-21 13:13:00 52 /min [facility] Body temperature 2021-08-21 13:11:00 36.5 Amina [facility] 2021-08-21 13:11:00 16 /min [facility] Body height 2021-08-21 13:11:00 162.6 cm [facility] Body weight 2021-08-21 13:11:00 93.759 kg [facility] BMI 2021-08-21 13:11:00 35.48 kg/m2 [facility] Oxygen saturation in 2021-08-21 13:11:00 95 /min University Arterial blood by [facility] [place] Pulse oximetry Branch Systolic blood 2020-12-08 15:48:00 125 mm[Hg] Method [facility] pressure Diastolic blood 2020-12-08 15:48:00 76 mm[Hg] [facility] pressure Heart rate 2020-12-08 15:48:00 64 /min [facility] Body temperature 2020-12-08 15:48:00 36.61 Amina [facility] Respiratory rate 2020-12-08 15:48:00 17 /min [facility] Body height 2020-12-08 15:48:00 162.6 cm [facility] Body weight 2020-12-08 15:48:00 98.884 kg [facility] BMI 2020-12-08 15:48:00 37.42 kg/m2 [facility] Oxygen saturation in 2020-12-08 15:48:00 97 /min [facility] Arterial blood by Pulse oximetry Respitory Rate 2020-08-30 13:00:00 Memori al [place] Systolic (mm Hg) 2020-08-30 13:00:00 Caesar rial [place] Diastolic (mm Hg) 2020-08-30 13:00:00 Mem orial [place] Systolic (mm Hg) 2020-08-30 11:00:00 Caesar rial [place] Diastolic (mm Hg) 2020-08-30 11:00:00 Mem orial [place] Temperature Oral (F) 2020-08-30 11:00:00 98.4 F [facility] Respitory Rate 2020-08-30 11:00:00 Memori al [place] Respitory Rate 2020-08-30 10:00:00 Memori al [place] Systolic (mm Hg) 2020-08-30 10:00:00 Caesar rial [place] Diastolic (mm Hg) 2020-08-30 10:00:00 Mem orial [place] Temperature Oral (F) 2020-08-30 00:00:00 96.9 F [facility] Temperature Oral (F) 2020-08-29 11:26:00 97.6 F [facility] Height 2020-08-29 10:30:00 162.56 cm [facility] Weight 2020-08-29 10:30:00 [facility] BMI Calculated 2020-08-29 10:30:00 Darien Hammond Procedures Procedure Date / Time Performing Clinician Source Performed ECG 12-LEAD 2021-07-14 15:14:00 Elan Lira [facility] [id number] 2021-06-17 00:00:00 R[facility]Y [facility] CONSENT/REFUSAL FOR 2021-06-15 16:11:59 Doctor [facility] DIAGNOSIS AND TREATMENT [place] [facility] ASSIGNMENT OF BENEFITS 2021-06-15 16:11:40 Doctor Unassigned, [facility] [place] [facility] GASTROINTESTINAL PANEL 2020-12-08 22:21:00 Yazmin [facility] XR ABDOMEN 1 VW 2020-12-08 18:06:32 Eliseo Glaser spital OR [place] < 1 HOUR 2020-09-05 22:39:00 Eliseo Glaser spital SURGICAL PATHOLOGY REQUEST 2020-09-05 21:54:00 Eliseo Glaser [facility] XR CHEST 1 VW PORTABLE 2020-09-05 19:55:00 Eliseo Glaser [facility] DISCHARGE PATIENT 2020-09-05 17:27:55 Lucas Harris [facility] [place] AN ELECTIVE 2020-09-05 16:47:23 Kirit Flood V. [facility] ENDOTRACHEAL AIRWAY EGD, INTRAOPERATIVE 2020-09-05 16:27:00 [facility] 2020-09-05 15:04:[address] [facility] TIME (PTT) M. PROTHROMBIN TIME WITH INR 2020-09-05 15:04:00 Mindy Maharaj [facility] MChelsie Plan of Care Planned Activity Planned Date Details Comments Source Future Scheduled 2021-08-26 Screening for [facility] Test 13:02:23 malignant neoplasm of cervix (procedure) [code = 135038840] Future Scheduled 2021-08-26 BREAST CANCER [facility] Test 13:02:23 SCREENING [code = BREAST CANCER SCREENING] Future Scheduled 2021-08-26 COLONOSCOPY SCREENING [facility] Test 13:02:23 [code = COLONOSCOPY SCREENING] Future Scheduled 2021-08-26 [facility] Test 13:02:23 malignant neoplasm of lung (procedure) [code = 559177774] Future Scheduled 2021-08-26 SHINGLES VACCINES (#1) M [facility] Test 13:02:23 [code = SHINGLES VACCINES (#1)] Future Scheduled 2021-08-26 COVID-19 VACCINE (3 - Me [facility] Test 13:02:23 Pfizer risk 4-dose series) [code = COVID-19 VACCINE (3 - Pfizer risk 4-dose series)] Future Scheduled 2021-08-26 65+ [facility]OCOCCAL [facility] Test 13:02:23 VACCINE (4 of 4 - PPSV23) [code = 65+ PNEUMOCOCCAL VACCINE (4 of 4 - PPSV23)] Future Scheduled 2021-08-26 INFLUENZA VACCINE [facility] Test 13:02:23 [code = INFLUENZA VACCINE] Encounters Start End Encounter Admission Attending Care Care Encounter Source Date/Time Date/Time Type Type Clinicians Facility Department ID 2021-08-03 Inpatient Ashely, EDUARDOCL OUTD [id number] [facility] 11:30:00 Mike [id number] [facility] 2021-07-14 Outpatient JENNY [facility] [id number] [place] 09:33:51 [facility] 2021-06-16 Inpatient RAUL Lund, EDUARDOCL OUTD [id number] [facility] 08:30:00 Mike [id number] [facility] 2021-06-15 Inpatient RAUL Lund, EDUARDOCL OUTD [id number] [facility] 10:30:00 Mike [id number] [facility] 2021-09-07 2021-09-07 Outpatient Marika [facility] [id number] Univers 08:00:00 08:00:00 EMERITA rodas [facility] 2021-08-21 2021-08-21 Tank 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 Santiago Cardenas 1.2.840.1 [id number] Univers 10:45:00 10:45:00 Visit [facility] 76185.1.1 ity of 3.104.2.7 [place] .3.019575 Medica l .8 Branch 2021-08-21 2021-08-21 Office [place], 1.2.840.3 [id number] Univers 08:30:00 09:00:00 Visit Santiago 64530.1.1 ity of 3.104.2.7 [place] .3.279302 Medica l .8 Branch 2021-08-21 2021-08-21 Travel 1.2.840.1 1.2.396.494 [id number] Univers 00:00:00 00:00:00 42236.1.1 350.1.13.10 ity of 3.104.2.7 4.[place].7.3.698 [place] .3.078148 084.8 Medica l .8 [place] 2021-08-14 2021-08-14 Telephone East, 1.2.840.2 [id number] Univers 00:00:00 00:00:00 [place] 77022.1.1 ity of 3.104.2.7 [place] .3.682703 Medica l .8 [place] 2021-08-13 2021-08-13 Telephone East, 1.2.840.7 [id number] Univers 00:00:00 00:00:00 [place] 06862.1.1 ity of 3.104.2.7 [place] .3.521920 Medica l .8 [place] 2021-08-05 2021-08-05 Outpatient WINTER Leal HCACL [id number] [facility] 05:24:00 05:24:00 Mike 31 [facility] 2021-08-05 2021-08-05 Outpatient RAUL Lund, HCACL OUTD [id number] [facility] 05:24:00 05:24:00 Mike [id number] [facility] 2021-07-14 2021-07-14 Office KIMBERLEY Lira 6400 1.2.840.114 [id number] [place] 08:45:00 09:34:01 Visit Elan ROMERO 350.1.13.58 Health 9.2.7.2.686 [id number] 1 2021-07-09 2021-07-09 Telephone Ap, KIMBERLEY 6400 1.2.840.114 [id number] [place] 00:00:00 00:00:[address] 350.1.13.58 [facility] 9.2.7.2.686 [id number] 1 2021-06-17 2021-06-17 Inpatient RAUL Lund, HCACL INTE.02 [id number] [facility] 10:56:00 14:36:00 Mike [id number] [facility] 2021-06-17 2021-06-17 Inpatient RAUL Lund, HCACL INTE.02 [id number] [facility] 10:56:00 14:36:00 Mike 47 [facility] 2021-06-15 2021-06-15 Orders Doctor 1.2.840.9 [id number] Univers 00:00:00 00:00:00 Only Unassigned, 22457.1.1 ity of [place] 3.104.2.7 [place] .3.203226 Medica l .8 Branch 2021-06-15 2021-06-15 Travel 1.2.840.1 1.2.671.155 [id number] Univers 00:00:00 00:00:00 04528.1.1 350.1.13.10 ity of 3.104.2.7 4.2.7.3.698 [place] .3.609711 084.8 Medica l .8 Branch 2021-06-11 2021-06-11 Refill East, 1.2.840.3 [id number] Univers 00:00:00 00:00:00 [place] 46997.1.1 ity of 3.104.2.7 [place] .3.775214 Medica l .8 Branch 2021-04-28 2021-04-28 Telephone Yazmin, 1.2.840.5 [id number] Methodi 00:00:00 00:00:[address] 3.430.2.7 Hospit a .3.245831 l .8 2021-03-31 2021-03-31 [facility], 1.2.840.1 [id number] Methodi 00:00:00 00:00:00 Only Sarai Lieberman 01358.1.1 979 s t 3.430.2.7 Hospit a .3.204270 l .8 2021-03-24 2021-03-24 [address] [facility], 1.2.840.1 [id number] Methodi 00:00:00 00:00:[address] 3.430.2.7 Hospit a .3.918677 l .8 2021-01-19 2021-01-19 Telephone Pelletier, 1.2.840.1 [id number] 2099 [id number] Methodi 00:00:00 00:00:[address] 3.430.2.7 Hospit a .3.470415 l .8 2020-12-12 2020-12-12 Office Hematpour, [facility] 6400 1.2.840.114 12 [id number] 07:42:02 08:18:[address] 350.1.13.58 9.2.7.2.686 [id number] 1 2020-12-09 2020-12-09 Telephone [facility], 1.2.840.1 [id number] Methodi 00:00:00 00:00:00 Sarai Lieberman 53231.1.1 316 s t 3.430.2.7 Hospit a .3.011699 l .8 2020-12-08 2020-12-08 [facility], 1.2.840.1 [id number] 2100 [id number] Methodi 12:35:54 23:59:00 Encounter Ray [address]00.1.[address] 3.430.2.7 Hospit a .3.918925 l .8 2020-12-08 2020-12-08 [facility] 1.2.840.1 [id number] Methodi 17:25:00 17:30:[address] 3.430.2.7 Hospit a .3.084141 l .8 2020-12-08 2020-12-08 Office Yazmin, 1.2.840.1 [id number] [id number] Methodi 10:30:00 11:39:56 Visit Ray [address]1629.1.[address] 3.430.2.7 Hospit a .3.011156 l .8 2020-12-08 2020-12-08 Travel 1.2.840.1 1.2.606.722 6533 [id number] Methodi 00:00:00 00:00:[address] 3.430.2.7 0.2.7.3.698 Ho spita .3.785622 084.8 l .8 2020-12-02 2020-12-02 Tank Assembler [facility] 1.2.840.114 8 [id number] 10:20:06 10:36:19 Visit Y [facility]ALTH 350.1.13.10 [facility] 4.2.7.2.686 [id number] 316 2020-11-25 2020-11-25 Office MEGHA Beltran 1.2.840.114 [id number] 11:06:30 11:58:14 Visit Robbi R EXTENSION EDUCATOR 350.1.13.10 REGIONAL 4.2.7.2.686 MATERNAL [id number] & CHILD 107 [facility] 2020-11-25 2020-11-25 [facility] 1.2.343.089 [id number] 00:00:00 00:00:00 Santiago Y HEALTH 350.1.13.10 CLINICS 4.2.7.2.686 [id number] 089 2020-11-25 2020-11-25 Telephone Devin [facility] 1.2.533.191 [id number] 0821 00:00:00 00:00:00 Rossandynda R EXTENSION EDUCATOR 350.1.13.10 REGIONAL 4.2.7.2.686 MATERNAL [id number] & CHILD 107 [facility] 2020-11-14 2020-11-14 Abstract Rodas, 1.2.840.1 [id number] Methodi 00:00:00 00:00:[address] 3.430.2.7 Hospit a .3.083222 l .8 2020-11-14 2020-11-14 Telephone Clark, 1.2.840.1 [id number] 2099 [id number] Methodi 00:00:00 00:00:[address] 3.430.2.7 Hospit a .3.714068 l .8 2020-11-07 2020-11-07 Telephone Diana, KIMBERLEY 6400 1.2.840.114 124 [id number] 00:00:00 00:00:[address] 350.1.13.58 9.2.7.2.686 [id number] 1 2020-10-27 2020-10-27 Telephone Yazmin, 1.2.840.3 [id number] Methodi 00:00:00 00:00:[address] 3.430.2.7 Hospit a .3.002911 l .8 2020-10-24 2020-10-24 Telephone Rodas, 1.2.840.1 [id number] 2099 [id number] Methodi 00:00:00 00:00:[address] 3.430.2.7 Hospit a .3.443193 l .8 2020-10-06 2020-10-12 [facility], 1.2.840.1 [id number] Methodi 15:30:00 00:08:46 ne Ray 35975.1.[address] 3.430.2.7 Hospit a .3.845881 l .8 2020-09-30 2020-09-30 Telephone Yazmin, 1.2.840.0 [id number] Methodi 00:00:00 00:00:[address] 3.430.2.7 Hospit a .3.247697 l .8 2020-09-21 2020-09-21 Travel 1.2.840.1 1.2.418.874 8614 [id number] Methodi 00:00:00 00:00:[address] 3.430.2.7 0.2.7.3.698 spita .3.387091 084.8 l .8 2020-09-06 2020-09-06 [facility] 1.2.840.1 [id number] Methodi 17:42:30 23:59:[address] 3.430.2.7 Hospit a .3.530076 l .8 2020-09-06 2020-09-06 [facility], 1.2.840.1 [id number] 2099 [id number] Methodi 16:50:00 17:41:00 Encounter Ray [address]2236.1.[address] 3.430.2.7 Hospit a .3.184022 l .8 2020-09-05 2020-09-05 [facility], 1.2.840.1 [id number] 2099 [id number] Methodi 09:17:00 19:45:00 Encounter Ray [address]75.1.[address] 3.430.2.7 Hospit a .3.697228 l .8 2020-09-05 2020-09-05 Surgery [facility], 1.2.840.1 [id number] Methodi 11:30:00 13:15:[address] 3.430.2.7 Hospit a .3.936839 l .8 2020-09-05 2020-09-05 Anesthesia [facility], 1.2.840.1 [id number] Methodi 11:27:00 12:20:00 Event Kirit 02538.1.1 243 s t V. 3.430.2.7 Hospit a .3.415961 l .8 2020-09-05 2020-09-05 Travel 1.2.840.1 1.2.835.640 8644 [id number] Methodi 00:00:00 00:00:[address] 3.430.2.7 0.2.7.3.698 Ho spita .3.035183 084.8 l .8 2020-09-04 2020-09-04 Telephone Meisenbach, 1.2.840.1 [id number] Methodi 00:00:00 00:00:00 Sarai Lieberman 40267.1.1 762 s t 3.430.2.7 Hospit a .3.758277 l .8 2020-09-02 2020-09-02 Telephone [place], 1.2.840.8 [id number] Methodi 00:00:00 00:00:00 Sarai Lieberman 52360.1.1 344 s t 3.430.2.7 Hospit a .3.642330 l .8 2020-08-29 2020-08-30 [id number] [facility] 10:20:00 14:10:00 Outpatient [facility] 00 l [facility] 2020-08-29 2020-08-30 Outpatient HEMATPOUR, [facility] CAR 7500 [facility] 05:20:00 09:10:00 BEVERLY Results Test Description Test Time Test Comments Results Result Comments Source Novel Coronavirus 2018 Inhouse 2021-08-03 18:08:00 Test Item Value Reference Range Interpretation Comme nts Novel Coronavirus 2018 Negative Negative Posit bruno results are indicative of the Inhouse (test code = presenc e gqLAEZ-OfF-2 RNA, clinical COVNONPUI) correlation wit h patient [...] qualitative detection of nucleic acid s from ydtYCIB-PxD-5 virus and diagn osis of SARS-CoV-2 virusinfection. It is an Emergency Use Authorization ( EUA) testauthorized by the U.S. FDA. BASIC METABOLIC [id number] 09:37:00 Test Item Value Reference Range Interpretation [...] = 9.0 mg/dL 8.0-10.5 N CA) PROTHROMBIN [id number] 09:32:00 Test Item Value Reference Range Interpretation [...] o prevent recurre nt infarct). 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 [facility] - XR CHEST 1 [id number] 00:00:00 [facility] 1955 Sex: F FAX: Lele Olivera DO [phone] [place]: St: ADM FAX: Jean Paul Scales MD [phone] FAX: Bahman Chopra [phone] Name: LIO WATTS [facility] : 1955 Age/S: 66/F [address] [place], [place] [address]vd Unit #: [id number] Loc: [place] [address] Phys: Bahman Chopra [employer] Acct: [id number] Dis Date: Status:ADM IN PHONE #: [phone] Exam Date: 06/17/2021 1320 FAX #: [phone] Reason: WATCHMAN EXAMS: CPT CODE: [id number] XR CHEST 1 V 43911 PROCEDURE INFORMATION: Exam: XR Chest Examdate and [...] Technologist: Jass Moreno RT(R) Trnscrd Date/Time/By: 06/17/2021 (750) : By: Susanna Orig Print D/T: S: 06/17/2021 (5861) PAGE 1 Signed ReportCOVID 19 Asymptomatic IH [id number] 12:29:00 Test Item Value Reference Range Interpretation [...] high or waivedcomplexit y tests. BASIC METABOLIC [id number] 11:37:00 Test Item Value Reference Range Interpretation [...] code = 9.0 mg/dL 8.0-10.5 N CA) [id number] 11:37:00 Test Item Value Reference Range Interpretation Comments PREALBUMIN (test code = PREALB) 24.3 mg/dL 16.0-40.0 N PROTHROMBIN [id number] 11:03:00 Test Item Value Reference Range Interpretation [...] o prevent recurre nt infarct). CBC W/AUTO [id number] 10:59:00 Test Item Value Reference Range Interpretation [...] 0.0-0.1 N NRBC#) - XR CHEST 2 [id number] 00:00:00 [facility] : 1955 Sex: F FAX: Lele Olivera DO [phone] [place]: St: PRE FAX: Jean Paul Scales MD [phone] Name: LIO WATTS [facility] : 1955 Age/S: 66/F [address] [place] [address] Unit #: [id number] Loc: [place] [address] [id number] Dis Date: Status: PRE [facility] PHONE #: [phone] Exam Date: 06/16/2021 1120 FAX #: [phone] Reason: PREOP EXAMS: CPT CODE: [id number] XR CHEST 2 V 77540 PROCEDURE INFORMATION: Exam: XR Chest Exam date [...] Technologist: Danielle Nix RT(R) Trnscrd Date/Time/By: 06/16/2021 (0551) : By: [email or web address] Orig Print D/T: S: 06/16/2021 (2959) PAGE 1 Signed ReportGastrointestinal [id number] 04:35:05 Test Item Value Reference Interpretation Comments [...] Rotavirus PCR (test Not Detected code = 2137052) Salmonella PCR (test Not Detected code = [...] PCR Not Detected (test code = 7124) [facility] [id number] 19:30:47 Test Item Value Reference Range Interpretation Comments Case number (test [id number] code = 7410586) Surgical pathology See link below for PDF report (test code = Lab Report 2255) Result status (test This is Supplemental code = 4521249) Report for [id number] [facility]2021-04-09 16:31:00 Test Item Value Reference Range Interpretation Comments POC Activated Clotting Time (test code 153 s = POC Activated Clotting Time) [place] [id number] 16:31:00 Test Item Value Reference Range Interpretation Comments POC Activated Clotting Time (test code 153 s = POC Activated Clotting Time) [place] [id number] 16:31:00 Test Item Value Reference Range Interpretation Comments POC Activated Clotting Time (test code 153 s = POC Activated Clotting Time) [place] [id number] 16:31:00 Test Item Value Reference Range Interpretation Comments POC Activated Clotting Time (test code 153 s = POC Activated Clotting Time) [facility] Hospit[id number] 16:31:00 Test Item Value Reference Range Interpretation Comments POC Activated Clotting Time (test code 153 s = POC Activated Clotting Time) [facility] [id number] 16:31:00 Test Item Value Reference Range Interpretation Comments POC Activated Clotting Time (test code 153 s = POC Activated Clotting Time) [facility] HospitalNgualacYFIHWATLBV1914-27-04 16:31:00 Test Item Value Reference Range Interpretation Comments POC Activated Clotting Time (test code 153 s = POC Activated Clotting Time) [place] [id number] 14:37:00 Test Item Value Reference Range Interpretation Comments POC Activated Clotting Time (test code 454 s = POC Activated Clotting Time) [place] [id number] 14:37:00 Test Item Value Reference Range Interpretation Comments POC Activated Clotting Time (test code 454 s = POC Activated Clotting Time) [place] [id number] 14:37:00 Test Item Value Reference Range Interpretation Comments POC Activated Clotting Time (test code 454 s = POC Activated Clotting Time) [place] [id number] 14:37:00 Test Item Value Reference Range Interpretation Comments POC Activated Clotting Time (test code 454 s = POC Activated Clotting Time) [place] [id number] 14:37:00 Test Item Value Reference Range Interpretation Comments POC Activated Clotting Time (test code 454 s = POC Activated Clotting Time) [facility] H[id number] 14:37:00 Test Item Value Reference Range Interpretation Comments POC Activated Clotting Time (test code 454 s = POC Activated Clotting Time) [facility] HospitalZlxchtuCUZUHCPYDB9956-78-31 14:37:00 Test Item Value Reference Range Interpretation Comments POC Activated Clotting Time (test code 454 s = POC Activated Clotting Time) [facility] Hospi[id number] 14:13:00 Test Item Value Reference Range Interpretation Comments POC Activated Clotting Time (test code 354 s = POC Activated Clotting Time) [facility] HospitalIqfxoiyCTCMUCBXLM3506-43-81 14:13:00 Test Item Value Reference Range Interpretation Comments POC Activated Clotting Time (test code 354 s = POC Activated Clotting Time) [facility] HospitalQvtzkygJIZFKIVAPQ8665-15-92 14:13:00 Test Item Value Reference Range Interpretation Comments POC Activated Clotting Time (test code 354 s = POC Activated Clotting Time) [facility] HospitalKrennniGISULZFAGD8721-71-87 14:13:00 Test Item Value Reference Range Interpretation Comments POC Activated Clotting Time (test code 354 s = POC Activated Clotting Time) [facility] [id number] 14:13:00 Test Item Value Reference Range Interpretation Comments POC Activated Clotting Time (test code 354 s = POC Activated Clotting Time) [facility] [id number] 14:13:00 Test Item Value Reference Range Interpretation Comments POC Activated Clotting Time (test code 354 s = POC Activated Clotting Time) [facility] [id number] 14:13:00 Test Item Value Reference Range Interpretation Comments POC Activated Clotting Time (test code 354 s = POC Activated Clotting Time) [facility] [id number] 10:37:00Negative (08/29/20 5:37 AM) [facility] ChildrenannCHEM DVHTV7135-40-02 10:37:77875Hrasmadx HermannCHEM PANEL 2020-08-29 10:37:0028[facility]annCHEM LFVJD1809-64-94 10:37:001.01[facility]annCHEM YGHOO4454-95-28 10:37:06573Mhgshufq HermannCHEM KBNOP2890-69-09 10:37:003.8[facility] HermannCHEM QXOSJ7479-68-29 10:37:87397Obdowwkn HermannCHEM OEXQP1843-90-31 10:37:0028[facility] HermannCHEM ISNKG0158-99-44 10:37:009.8 [facility]annCHEM ENKSF7425-55-65 10:37:0011.8[facility] HermannCHEM PANEL 2020-08-29 10:37:0059[facility] HermannCHEM KECHO3361-29-35 10:37:002.9[facility] TppazdjNJYVFWCVGB4028-33-11 10:37:006.8[facility] BqtwvjdZQWFCDGLZW6816-94-08 10:37:004.47[facility] JtwnogkFWGZSASLUA0243-97-92 10:37:0010.6[facility] OJJDWPXDBK3692-38-94 10:37:0034.0[facility] VwkduoeSCCIOQYTON9037-07-17 10:37:00 76.1[facility] TykxgkmLTVABZGMDD1280-72-39 10:37:00 Test Item Value Reference Range Interpretation Comments MCH (test code = MCH) 23.8 pg 27.0-31.0 [facility] KawjhdlABZCKQSVSF3241-88-39 10:37:0031.3[facility] HermannHEMATOLOGY 2020-08-29 10:37:0018.2[facility] YjvpsppLCDHAPAMCI0454-02-14 10:37:66858Tvctasnx FhktwcoYYEGBFOXTT3623-88-21 10:37:007.5[facility] DgvoifnPKKPCVGFTO4464-37-54 10:37:00 Test Item Value Reference Range Interpretation Comments PT (test code = PT) 12.8 s 12.0-14.7 [facility] BcuqoksKZKLKQZIWG7791-68-79 10:37:00 Test Item Value Reference Range Interpretation Comments INR (test code = INR) 0.97 1 0.85-1.17 [facility] YxjmrsqLPXDLVMUKY7743-64-20 10:37:00 Test Item Value Reference Range Interpretation Comments PTT (test code = PTT) 25.0 s 22.9-35.8 [facility] JryhfodZYQUTVXSHP1437-91-14 10:37:0070.5[facility] HermannHEMATOLOGY 2020-08-29 10:37:0018.8[facility] TtdpxtwPOPLMPTCDP0045-03-57 10:37:009.5[facility] RdlsaztXPASSPCVJI9933-51-65 10:37:000.9[facility] CpyfqazVRGDOEOPMP7463-34-74 10:37:000.3[facility] UlkcllcGTOVRLTGWG7915-84-03 10:37:004.8[facility] LCEGXNTUFZ3187-93-19 10:37:001.3[facility] XnkitxaRDPIAVCJMZ0658-95-77 10:37:000.6 [facility] WwmmjyrIPQCGUIBYC9185-42-06 10:37:000.1[facility] HermannHEMATOLOGY 2020-08-29 10:37:001+ *ABN*(08/29/20 5:37 AM)[facility] DyyocslHDHHZDJFSW2931-29-24 10:37:00Not Detected (08/29/20 5:37 AM)[facility] HermannBLOOD BANK RESULTS 2020-08-29 10:37:00Negative (08/29/20 5:37 AM)[facility] HermannCHEM OLGII8798-15-13 10:37:61080Swunajfm HermannCHEM MXUPT9165-00-04 10:37:0028[facility] HermannCHEM CHWVR9290-77-99 10:37:001.01[facility] HermannCHEM RHMBO0285-82-34 10:37:99800 [facility]annCHEM QAIZS3677-63-78 10:37:003.8[facility] HermannCHEM PANEL 2020-08-29 10:37:01541Dqnqqbni HermannCHEM IERKK6373-15-56 10:37:0028[facility] HermannCHEM IHUCJ2832-27-89 10:37:009.8[facility] HermannCHEM NIFRR9425-35-63 10:37:0011.8[facility] HermannCHEM HTTCD7747-61-86 10:37:0059[facility] HermannCHEM UIQAF9865-60-55 10:37:002.9[facility] CbupzulGYYXVNXWNZ2981-36-18 10:37:006.8 [facility] HydvmzySMIWHFDREP8953-47-57 10:37:004.47[facility] HermannHEMATOLOGY 2020-08-29 10:37:0010.6[facility] KfivbsbMVZOZUPASN0081-79-57 10:37:0034.0[facility] VllhlkjYZSZQNRJDH6032-60-36 10:37:0076.1[facility] VxnuepeFOQBBYMMTF7975-89-78 10:37:00 Test Item Value Reference Range Interpretation Comments MCH (test code = MCH) 23.8 pg 27.0-31.0 [facility] BgvjmhqFMKGXOQXHB8153-35-92 10:37:0031.3[facility] HermannHEMATOLOGY 2020-08-29 10:37:0018.2[facility] EvdniguOHMQABYFKH0635-24-53 10:37:88673Agyyrwof QqpyyfxPJBFGSAVGC9280-88-49 10:37:007.5[facility] DvxuwwfIZPEWBBZWO8345-89-29 10:37:00 Test Item Value Reference Range Interpretation Comments PT (test code = PT) 12.8 s 12.0-14.7 [facility] FjxrzpfLWSFVMTHED8251-04-33 10:37:00 Test Item Value Reference Range Interpretation Comments INR (test code = INR) 0.97 1 0.85-1.17 [facility] XznygyzLUVKRFEQZC9842-40-85 10:37:00 Test Item Value Reference Range Interpretation Comments PTT (test code = PTT) 25.0 s 22.9-35.8 [facility] TyplovpPCFPJXJIAE4781-30-36 10:37:0070.5[facility] HermannHEMATOLOGY 2020-08-29 10:37:0018.8[facility] OvfzktiUDSLJAGPPC2193-59-99 10:37:009.5[facility] PkmnqmlLMJEKMTXOK8390-02-22 10:37:000.9[facility] JgkktvxOXHKYJCZWY6615-78-15 10:37:000.3[facility] XaxvqfhFDLTTEOXCR2311-51-35 10:37:004.8[facility] ASPYWRRKMW5996-99-90 10:37:001.3[facility] YxoynqcEIKOSQEEHV6422-50-03 10:37:000.6 [facility] OnmteaqCGAHHZSADK3855-45-34 10:37:000.1[facility] HermannHEMATOLOGY 2020-08-29 10:37:001+ *ABN*(08/29/20 5:37 AM)[facility] JjehglnNSDPILRZJU2027-14-65 10:37:00Not Detected (08/29/20 5:37 AM)[facility] HermannBLOOD BANK RESULTS 2020-08-29 10:37:00Negative (08/29/20 5:37 AM)[facility] HermannCHEM MJAUE1317-50-17 10:37:76928Dfetsfrc HermannCHEM RSYXJ7450-02-68 10:37:0028[facility] HermannCHEM QNFUA8834-79-37 10:37:001.01[facility] HermannCHEM DYXTX6503-28-59 10:37:22464 [facility] HermannCHEM XTYAY9789-99-77 10:37:003.8[facility] HermannCHEM PANEL 2020-08-29 10:37:67811Wbpoerwc HermannCHEM DYWRJ1197-41-02 10:37:0028[facility] HermannCHEM CZWFI3132-66-48 10:37:009.8[facility] HermannCHEM ROEHA2063-46-53 10:37:0011.8[facility] HermannCHEM UVPMK1888-40-98 10:37:0059[facility] HermannCHEM FUHAH1883-83-87 10:37:002.9[facility] SlamuezBNAOOGUHFB1615-30-07 10:37:006.8 [facility] YncuwyxNQWRAAUIVC5751-94-48 10:37:004.47[facility] HermannHEMATOLOGY 2020-08-29 10:37:0010.6[facility] KvpffjvKDAUICEFIS5820-32-75 10:37:0034.0[facility] XqahilhQLOYEIGNVG1416-87-26 10:37:0076.1[facility] RuqwcufZIZMWMMRDB9382-56-25 10:37:00 Test Item Value Reference Range Interpretation Comments MCH (test code = MCH) 23.8 pg 27.0-31.0 [facility] UfjxzbgCJPJMAUQUQ9896-70-45 10:37:0031.3[facility] HermannHEMATOLOGY 2020-08-29 10:37:0018.2[facility] AbakijbMXEEHKABAL3101-17-84 10:37:79696Ejeryfoo WqqwfcaVDTCJPQJTR7945-94-43 10:37:007.5[facility] ZhuulmnDWIFEDFHMH6590-74-86 10:37:00 Test Item Value Reference Range Interpretation Comments PT (test code = PT) 12.8 s 12.0-14.7 [facility] JsdnfrdMBOVGDQVGO8077-75-23 10:37:00 Test Item Value Reference Range Interpretation Comments INR (test code = INR) 0.97 1 0.85-1.17 [facility] IggthkbDUHDTHPICY8827-96-35 10:37:00 Test Item Value Reference Range Interpretation Comments PTT (test code = PTT) 25.0 s 22.9-35.8 [facility] VfsviibRAFXWRITXD3686-75-37 10:37:0070.5[facility] HermannHEMATOLOGY 2020-08-29 10:37:0018.8[facility] WqqywdfHIDKCKIPEZ3437-82-98 10:37:009.5[facility] TqujafoPRQFDLGSDK7571-86-46 10:37:000.9[facility] YlwhdugGAETDQSACT5609-86-15 10:37:000.3[facility] KzrraxzRGMGSKNSXQ8506-94-15 10:37:004.8[facility] GZUVOMIMYN4060-76-52 10:37:001.3[facility] QiwlqsmTBMQRZHKGB6744-39-50 10:37:000.6 [facility] YtnprgkFEYFNAQGOY9320-29-48 10:37:000.1[facility] HermannHEMATOLOGY 2020-08-29 10:37:001+ *ABN*(08/29/20 5:37 AM)[facility] NghykwwLUSRVHLOYN5215-21-60 10:37:00Not Detected (08/29/20 5:37 AM)[facility] HermannBLOOD BANK RESULTS 2020-08-29 10:37:00Negative (08/29/20 5:37 AM)[facility] HermannCHEM YGMYL2844-51-31 10:37:15364Alrdazyo HermannCHEM CGPUT5642-50-99 10:37:0028[facility] HermannCHEM KEKOQ6176-86-93 10:37:001.01[facility] HermannCHEM YVAOX9014-93-79 10:37:15601 [facility] HermannCHEM JDRPI6943-42-25 10:37:003.8[facility] HermannCHEM PANEL 2020-08-29 10:37:27006Nqhivynh HermannCHEM QCWVK7384-41-66 10:37:0028[facility] HermannCHEM LQZZQ9642-73-76 10:37:009.8[facility] HermannCHEM HSVTC3629-85-86 10:37:0011.8[facility] HermannCHEM IGFSZ1879-64-14 10:37:0059[facility] HermannCHEM OEUHV1270-54-63 10:37:002.9[facility] KpissqyIICOEIPHPM1757-09-37 10:37:006.8 [facility] UzcxnogERLMDHFQEA0381-02-48 10:37:004.47[facility] HermannHEMATOLOGY 2020-08-29 10:37:0010.6[facility] UxjxfnpMVZVJXKNQN4867-11-75 10:37:0034.0[facility] GcigztzYZZWWMISZR9225-60-89 10:37:0076.1[facility] RyxkaixWEUDYLVMDC4969-38-73 10:37:00 Test Item Value Reference Range Interpretation Comments MCH (test code = MCH) 23.8 pg 27.0-31.0 [facility] MkaecjwTRJYAJENEO2582-47-91 10:37:0031.3[facility] HermannHEMATOLOGY 2020-08-29 10:37:0018.2[facility] TcymhayUDLQYKFTGV5303-95-73 10:37:57588Pcqeigtc TflzkhjHAOYQONNSJ0537-46-53 10:37:007.5[facility] PcuogttCLEMQYXOFL1029-11-14 10:37:00 Test Item Value Reference Range Interpretation Comments PT (test code = PT) 12.8 s 12.0-14.7 [facility] HkehtdbUOFIOUKJDW3030-32-29 10:37:00 Test Item Value Reference Range Interpretation Comments INR (test code = INR) 0.97 1 0.85-1.17 [facility] OspmfmkVTXSYOGTKK0498-68-16 10:37:00 Test Item Value Reference Range Interpretation Comments PTT (test code = PTT) 25.0 s 22.9-35.8 [facility] EctrnkkMFYWQRKZAH6819-96-42 10:37:0070.5[facility] HermannHEMATOLOGY 2020-08-29 10:37:0018.8[facility] BbnayrpUCECGNPKRZ3751-45-24 10:37:009.5[facility] ImpyzgnDXTFGQPZDB8454-65-59 10:37:000.9[facility] WrmvrvsSXFUGUPMHW7845-68-10 10:37:000.3[facility] OejyrvnVETBIUUSUW7372-36-10 10:37:004.8[facility] NAYYWTHCPD4132-78-17 10:37:001.3[facility] LipeoleQEOBOLAMIB4736-53-43 10:37:000.6 [facility] AeviduvVMHHROLYOH4456-45-14 10:37:000.1[facility] HermannHEMATOLOGY 2020-08-29 10:37:001+ *ABN*(08/29/20 5:37 AM)[facility] IhpwerkZHVUGGFJOO4969-95-98 10:37:00Not Detected (08/29/20 5:37 AM)[facility] HermannBLOOD BANK RESULTS 2020-08-29 10:37:00Negative (08/29/20 5:37 AM)[facility] HermannCHEM UUSIM9618-57-37 10:37:52353Yhclgens HermannCHEM NBXGV6547-91-75 10:37:0028[facility] HermannCHEM YEWYY9713-07-20 10:37:001.01[facility] HermannCHEM WQVQX0463-60-69 10:37:24919 [facility] HermannCHEM YBLNS6423-94-11 10:37:003.8[facility] HermannCHEM PANEL 2020-08-29 10:37:22440Uevhimmz HermannCHEM EEQVZ2948-84-12 10:37:0028[facility] HermannCHEM NGHCR2057-52-44 10:37:009.8[facility] HermannCHEM GFTNY3893-65-25 10:37:0011.8[facility] HermannCHEM YBKTW5956-73-55 10:37:0059[facility] HermannCHEM IYLBQ8389-79-28 10:37:002.9[facility] BbnzzxtQMUDVZDMZY6038-80-55 10:37:006.8 [facility] UjvuxgiCOZJOAXNDP4989-03-01 10:37:004.47[facility] HermannHEMATOLOGY 2020-08-29 10:37:0010.6[facility] EofbqtvMGHOKPQYLR4505-08-72 10:37:0034.0[facility] CpveuzoFOIBODIVBY0549-60-97 10:37:0076.1[facility] FqvuchaARPBJLQPBA1060-54-74 10:37:00 Test Item Value Reference Range Interpretation Comments MCH (test code = MCH) 23.8 pg 27.0-31.0 [facility] QrnxwttQJWYBKHXOR9813-59-02 10:37:0031.3[facility] HermannHEMATOLOGY 2020-08-29 10:37:0018.2[facility] DpiexjcDKLLUYBMRC0836-17-12 10:37:00714Olnfdjuv FszqpmmZDPTXUWHIJ9971-90-93 10:37:007.5[facility] GovdpkdJYUFUURJSA9563-56-51 10:37:00 Test Item Value Reference Range Interpretation Comments PT (test code = PT) 12.8 s 12.0-14.7 [facility] TeaiygvYOANNDFIKH1414-39-37 10:37:00 Test Item Value Reference Range Interpretation Comments INR (test code = INR) 0.97 1 0.85-1.17 [facility] VckoubsOKHYFNICSR9882-22-98 10:37:00 Test Item Value Reference Range Interpretation Comments PTT (test code = PTT) 25.0 s 22.9-35.8 [facility] BdjyjhnNRLKRJHVYQ7734-85-79 10:37:0070.5[facility] HermannHEMATOLOGY 2020-08-29 10:37:0018.8[facility] YjybyhwIQNHOGSQII3181-88-49 10:37:009.5[facility] TnpbqleXIEAPEWXOA1232-62-54 10:37:000.9[facility] CgbmjdwOXZVHSVWAJ1087-20-83 10:37:000.3[facility] CktvbahRDHFSBRQDT8825-16-90 10:37:004.8[facility] ZNTOOLLURB5118-13-02 10:37:001.3[facility] CbudwhqPOKESIVOLC1312-87-84 10:37:000.6 [facility] WqlzxfeHETHGHJDMS6023-07-57 10:37:000.1[facility] HermannHEMATOLOGY 2020-08-29 10:37:001+ *ABN*(08/29/20 5:37 AM)[facility] AfcmpulBUPOAWPEUA3576-10-72 10:37:00Not Detected (08/29/20 5:37 AM)[facility] HermannBLOOD BANK RESULTS 2020-08-29 10:37:00Negative (08/29/20 5:37 AM)[facility] HermannCHEM RCJIL3175-11-33 10:37:27753Zrokroav HermannCHEM QPGZF0137-47-27 10:37:0028[facility] HermannCHEM HLQTQ4316-88-45 10:37:001.01[facility] HermannCHEM ZDKAS4225-89-64 10:37:37471 [facility] HermannCHEM EWOYX9398-63-87 10:37:003.8[facility] HermannCHEM PANEL 2020-08-29 10:37:20237Loqcfwnv HermannCHEM XZWBZ5091-05-91 10:37:0028[facility] HermannCHEM THHHA0570-76-35 10:37:009.8[facility] HermannCHEM MVNVV1823-44-18 10:37:0011.8[facility] HermannCHEM LTNUV5215-09-92 10:37:0059[facility] HermannCHEM OOGPO0344-06-87 10:37:002.9[facility] QlrkkirCFNLHFODCU7363-39-48 10:37:006.8 [facility] AifehksIXUFQFXCDJ6004-74-01 10:37:004.47[facility] HermannHEMATOLOGY 2020-08-29 10:37:0010.6[facility] FkqkyvoDPPRGORWRX1997-41-10 10:37:0034.0[facility] HllakadZECYPZUXQQ3719-95-89 10:37:0076.1[facility] VjnpgmlQEUIMBMAPK7840-64-17 10:37:00 Test Item Value Reference Range Interpretation Comments MCH (test code = MCH) 23.8 pg 27.0-31.0 [facility] RscyvmdUCDRFOOKUA5517-09-79 10:37:0031.3[facility] HermannHEMATOLOGY 2020-08-29 10:37:0018.2[facility] ZdrbpmyUKUNBKKEMR4813-88-16 10:37:88927Ivqcneoa NlzxgpmYEFGVDSERZ3185-83-43 10:37:007.5[facility] XsoieeqMWUWCDIHSR5169-56-56 10:37:00 Test Item Value Reference Range Interpretation Comments PT (test code = PT) 12.8 s 12.0-14.7 [facility] LryluyeDEUBKNDGWD6891-22-92 10:37:00 Test Item Value Reference Range Interpretation Comments INR (test code = INR) 0.97 1 0.85-1.17 [facility] RcavbztHGYSZZDUKX2261-83-19 10:37:00 Test Item Value Reference Range Interpretation Comments PTT (test code = PTT) 25.0 s 22.9-35.8 [facility] YmhrztvHJEQLLGWGW5338-47-61 10:37:0070.5[facility] HermannHEMATOLOGY 2020-08-29 10:37:0018.8[facility] OnjfjokAEJVJJBHZF1691-34-63 10:37:009.5[facility] BucemuqRPGYWUKADW3775-55-25 10:37:000.9[facility] UohnsawGFAEKNAMDW4121-72-83 10:37:000.3[facility] XgnpqzjPIPSAIXLCO5566-31-20 10:37:004.8[facility] DOJPXSGFRC5103-62-35 10:37:001.3[facility] XahwahrXRYUFESNUH8465-83-29 10:37:000.6 [facility] WnwhrboNGTQKJZTYI1635-18-79 10:37:000.1[facility] HermannHEMATOLOGY 2020-08-29 10:37:001+ *ABN*(08/29/20 5:37 AM)[facility] BiyqxcbVOUZADGPAX2409-26-47 10:37:00Not Detected (08/29/20 5:37 AM)[facility] HermannBLOOD BANK RESULTS 2020-08-29 10:37:00Negative (08/29/20 5:37 AM)[facility] HermannCHEM ULEZL2725-14-57 10:37:97984Rpydyaua HermannCHEM HCKLY3634-89-73 10:37:0028[facility] HermannCHEM QTPJE0246-90-71 10:37:001.01[facility] HermannCHEM WTIWP9502-36-96 10:37:56487 [facility]annCHEM VEDPV2015-45-12 10:37:003.8[facility] HermannCHEM PANEL 2020-08-29 10:37:25959Fpijmehv HermannCHEM OHBVB2999-51-18 10:37:0028[facility] HermannCHEM IEWOI3624-06-96 10:37:009.8[facility] HermannCHEM BPIOL8552-40-01 10:37:0011.8[facility] HermannCHEM HMPKD9288-87-81 10:37:0059[facility] HermannCHEM URVUH8853-33-29 10:37:002.9[facility] PraowzzZKMCVZMUAC3503-63-57 10:37:006.8 [facility] DxmdxtyGZVETQTYPX5985-64-03 10:37:004.47[facility] HermannHEMATOLOGY 2020-08-29 10:37:0010.6[facility] ChfqodqFKNTIKXJVR4112-45-63 10:37:0034.0[facility] OhnzlhjRRTSUKXKKK5343-86-96 10:37:0076.1[facility] VdxfdymLISXIQUASP2716-93-37 10:37:00 Test Item Value Reference Range Interpretation Comments MCH (test code = MCH) 23.8 pg 27.0-31.0 [facility] BrhgmqbOSLMSRLUJX9937-55-91 10:37:0031.3[facility] HermannHEMATOLOGY 2020-08-29 10:37:0018.2[facility] BczlkmwTOFLLVMHGJ7486-88-61 10:37:35623Rpktqkhn LlkbnouHOABBOBGLS2283-84-80 10:37:007.5[facility] WtaoaneCRYZXXPVTM5311-60-74 10:37:00 Test Item Value Reference Range Interpretation Comments PT (test code = PT) 12.8 s 12.0-14.7 [facility] ChildrenFrvmtepMWTQWBDPAN1537-99-96 10:37:00 Test Item Value Reference Range Interpretation Comments INR (test code = INR) 0.97 1 0.85-1.17 [facility] ChildrenKshikghONOUVQCHYL1440-48-17 10:37:00 Test Item Value Reference Range Interpretation Comments PTT (test code = PTT) 25.0 s 22.9-35.8 [facility] NqgrvmaKMFKXLKUCL4421-06-79 10:37:0070.5[facility] HermannHEMATOLOGY 2020-08-29 10:37:0018.8[facility] AhirvyqLWDKUVODUT0809-78-81 10:37:009.5[facility] PfnwhodRHEMOTLYHH6067-73-88 10:37:000.9[facility] XsndmhiQSETDHJDWQ7737-48-78 10:37:000.3[facility] JyabodoAKBHSYDEEN4825-92-28 10:37:004.8[facility] DGVMSYQPAE1078-03-33 10:37:001.3[facility] GlxdemySKPIORLHIM2444-30-48 10:37:000.6 [facility] OhdwpcxITHGPSNUNM2276-31-75 10:37:000.1[facility] HermannHEMATOLOGY 2020-08-29 10:37:001+ *ABN*(08/29/20 5:37 AM)[facility] HckhlftREEDMKCBZM3991-26-87 10:37:00Not Detected (08/29/20 5:37 AM)[facility] ChildrenarielASHEVILLE SPECIALTY HOSPITALDIA, GC, TV,PCR, IN WCNEM0825-15-42 15:38:00 Test Item Value Reference Range Interpretation Comments FT (test code = CHTR) Not detected (qualifier Not Detected N value) FT (test code = Not detected (qualifier Not Detected N NGONO) value) FT (test code = TRVG) Not detected (qualifier Not Detected N value) URINALYSIS WITH KPIZQUTDILB1892-11-79 10:57:00 Test Item Value Reference Range Interpretation Comments Color (test code = UCOLR) Dk. Yellow Clarity (test code = UCLAR) Hazy Glucose (test code = UGLUC) NEGATIVE NEGATIVE N Bilirubin (test code = UBILI) NEGATIVE NEGATIVE N Ketones (test code = UKET) NEGATIVE NEGATIVE N Specific [place] (test code = 1.025 1.005-1.030 A USPGR) [...]
[2021-10-11] MEDS ORDERED: MORPHINE 4 MG/ML SYR ONE ×3 (12:50→19:06)
[2021-10-11] MEDS ORDERED: ONDANSETRON 4 MG/2 ML VIAL ONE ×2 (12:51→19:06)
[2021-10-11] MEDS ORDERED: MECLIZINE HCL 12.5 MG TAB ONE (12:51)
--- NOTE | 2021-10-11 13:09 | RAD REPORT ---
EXAM DESCRIPTION: CT - Head Brain Wo Cont - 10/11/2021 12:45 pm CLINICAL HISTORY: Dizziness, non-specific COMPARISON: Head Brain Wo Cont dated 08/28/2021 TECHNIQUE: Axial 5 mm thick images of the head were obtained without IV contrast. All CT scans are performed using dose optimization technique as appropriate and may include automated exposure control or mA/KV adjustment according to patient size. FINDINGS: No intracranial hemorrhage, mass, edema or shift of mid-line structures. No acute infarcti on changes seen. No cortical edema or sulcal effacement. Atrophy changes are mild. Ventricles are in proportion to any volume loss. Patient does have advanced for age chronic ischemic change throughout the cerebral white matter. Mastoid air cells and visualized portions of the paranasal sinuses are clear. No globe or orbital con tent abnormality. Arterial and physiologic calcifications are present. No acute bony findings. IMPRESSION: No hemorrhage, mass, edema or acute intracranial finding identifiable. Patient has advanced for age chronic ischemic change in the cerebral white matter. Atrophy is mild. Intracranial findings are similar to the August 28 imaging.
[2021-10-11 13:22] LABS: Absolute Lymphocytes (CBC) 1.1 K/uL (0.7-4.9); Hematocrit 31.2 % (36.0-45.0); Lymphocytes % 20.1 % (15.3-44.8); MPV 7.2 fL (7.6-11.3); Protime INR 1.09; RBC Red Blood Cell Count 4.31 M/uL (3.86-4.86)
[2021-10-11 13:45] LABS: Albumin 3.1 g/dL (3.4-5.0); Bilirubin Direct 0.2 mg/dL (0-0.2); Bilirubin Total 0.5 mg/dL (0.2-1.0); Magnesium 1.9 mg/dL (1.8-2.4); Protein, Total 6.8 g/dL (6.4-8.2); Troponin High Sensitivity 21.3 pg/mL (<58.9)
--- NOTE | 2021-10-11 14:05 | RAD REPORT ---
EXAM DESCRIPTION: RAD - Chest Single View - 10/11/2021 1:26 pm CLINICAL HISTORY: CHEST PAIN COMPARISON: Portable 10/03/2021 TECHNIQUE: AP portable chest image was obtained 10/11/2021 1:26 pm . FINDINGS: No new mass consolidation. Lung volumes are low. Baseline interstitial pattern remains pro minent. Cardiac silhouette is enlarged stable. Central vasculature mildly prominent. No measurable pl eural effusion and no pneumothorax. Bilateral shoulder joint prostheses in place. No acute aortic fin dings suspected. IMPRESSION: Suspected early failure or volume overload.
[2021-10-11] MEDS ORDERED: POTASSIUM 25 MEQ EFFERV TAB ONE (14:18)
[2021-10-11] MEDS ORDERED: FUROSEMIDE 20 MG/ 2ML VIAL ONE (15:15)
--- NOTE | 2021-10-11 18:34 | EDPHYS ---
Physician Documentation [facility] Name: Fawn Fleming Age: 66 yrs Sex: Female : 1955 Arrival Date: 10/11/2021 Time: 11:45 Bed 7 Private MD: ED Physician Liz Otoole HPI: 10/11 12:30 This 66 yrs old Female presents to ER via Ambulatory with complaints of Shortness Of cp Breath, Dizziness, Chest Pain. 12:30 The patient or guardian reports chest pain that is located primarily in the substernal cp area. 12:30 Onset: today. The pain does not radiate. Associated signs and symptoms: Pertinent cp positives: dizziness, shortness of breath, diarrhea, Pertinent negatives: abdominal pain, cough, diaphoresis, lower extremity pain, lower extremity swelling, vomiting. Historical: - Allergies: 11:46 Bactrim DS; ss 11:46 butorphanol tartrate; ss 11:46 Fentanyl; ss 11:46 Reglan; ss 11:46 Stadol; ss 11:46 sulfamethoxazole (bulk); ss 11:46 TRIMETHOPRIM; ss - PMHx: 11:46 Anxiety; Atrial Fib; Bipolar disorder; Chronic pain; COPD; esophageal varices; ss Hepatitis; HIV; Hypertension; Migraines; Panic Attacks; - PSHx: 11:46 Appendectomy; Bilateral shoulder repair; Cholecystectomy; hernia repair; R wrist SX; ss - Immunization history:: Client reports receiving the 2nd dose of the Covid vaccine. - Social history:: Smoking status: Patient/guardian denies using tobacco, the patient reports quitting approximately 1 years ago. ROS: 12:35 Constitutional: Negative for body aches, chills, fever. cp 12:35 Eyes: Negative for injury, pain, redness, and discharge. cp 12:35 ENT: Negative for drainage from ear(s), ear pain, sore throat, difficulty swallowing, difficulty handling secretions. 12:35 Cardiovascular: Positive for chest pain, Negative for palpitations. 12:35 Respiratory: Positive for cough, shortness of breath, at rest. 12:35 Abdomen/GI: Negative for abdominal pain, vomiting, diarrhea, constipation. 12:35 Back: Negative for pain at rest, pain with movement. 12:35 Neuro: Negative for altered mental status, dizziness, headache, syncope, weakness. 12:35 All other systems are negative. Exam: 12:40 Constitutional: The patient appears in no acute distress, alert, awake, cp non-diaphoretic, non-toxic, well developed, well nourished. 12:40 Head/Face: Normocephalic, atraumatic. cp 12:40 Eyes: Periorbital structures: appear normal, Conjunctiva: normal, no exudate, no injection, Sclera: no appreciated abnormality, Lids and lashes: appear normal, bilaterally. 12:40 ENT: External ear(s): are unremarkable, Nose: is normal, Mouth: Lips: moist, Oral mucosa: pink and intact, moist, Posterior pharynx: Airway: no evidence of obstruction, patent, Tonsils: are normal in appearance, erythema, is not appreciated, exudate, is not appreciated. 12:40 Chest/axilla: Inspection: normal. 12:40 Cardiovascular: Rate: normal, Rhythm: regular, Edema: is not appreciated, JVD: is not appreciated. 12:40 Respiratory: the patient does not display signs of respiratory distress, Respirations: labored breathing, that is mild, Breath sounds: decreased breath sounds, that are mild, diffuse, stridor, is not appreciated, wheezing: expiratory 12:40 Abdomen/GI: Inspection: abdomen appears normal, Palpation: abdomen is soft and non-tender, in all quadrants. 12:40 Back: pain, is absent, ROM is normal. 12:40 Neuro: Orientation: to person, place \\T\\ time. Mentation: is normal, Motor: moves all fours, strength is normal, Sensation: no obvious gross deficits. 13:22 ECG was reviewed by the Attending Physician. cp Vital Signs: 11:51 BP 198 / 100; Pulse 69; Resp 20; Temp 97.1(TE); Pulse Ox 100% on R/A; Weight 95.25 kg; ss Height 5 ft. 4 in. (162.56 cm); Pain 0/10; 13:23 BP 167 / 95; Pulse 64; Resp 18; Pulse Ox 95% on R/A; ll1 14:08 BP 158 / 89; Pulse 61; Resp 17; Pulse Ox 94% ; ll1 14:26 ll1 16:21 BP 139 / 91; Pulse 68; Pulse Ox 94% ; ll1 17:42 BP 136 / 86; Pulse 65; Resp 18; Pulse Ox 94% ; ll1 11:51 Body Mass Index 36.05 (95.25 kg, 162.56 cm) ss 14:26 O2 sat 88-91% with ambulting. Patient feels SOB and wheezy after waking. ALEJO Florez ll1 infomred. MDM: 12:16 Patient medically screened. cp 13:00 Differential diagnosis: acute myocardial infarction, acute pericarditis, cp costochondritis, pericarditis, pleurisy, pneumonia, pneumothorax, pulmonary embolus, CHF exacerbation, COPD exacerbation. 16:30 Data reviewed: vital signs, nurses notes, lab test result(s), EKG, radiologic studies, cp plain films. 16:30 Test interpretation: by ED physician or midlevel provider: ECG, plain radiologic cp studies. 18:15 Physician consultation: Daysi DHILLON was called at 18:15, was contacted at 18:15, cp regarding admission, to the telemetry unit. patient ambulated on RA and oxygen sats reported by nurse to drop to 88%. Will admit for continued treatment. 10/11 12:26 Order name: Basic Metabolic Panel; Complete Time: 14: 10/11 14:06 Interpretation: Normal except: K 3.0; GFR 78; CA 8.3. 10/11 12:26 Order name: CBC with Diff; Complete Time: 14:06 10/11 14:28 Interpretation: Normal except: HGB 9.5; HCT 31.2; MCV 72.4; MCH 22.0; MCHC 30.3; PLT cp 169; RDW 17.8; MPV 7.2. 10/11 12:26 Order name: LFT's; Complete Time: 14:06 10/11 12:26 Order name: Magnesium; Complete Time: 14:06 10/11 12:26 Order name: NT PRO-BNP; Complete Time: 14:06 10/11 14:06 Interpretation: Abnormal: NT PRO-BNP 7216. 10/11 12:26 Order name: PT-INR; Complete Time: 14:06 10/11 12:26 Order name: Troponin HS; Complete Time: 14:06 10/11 12:26 Order name: XRAY Chest (1 view); Complete Time: 14: 10/11 12:26 Order name: COVID-19 SARS RT PCR (Document "Date of Onset" if Symptomatic); Complete cp Time: 16:10/11 16:22 Interpretation: SARSCOV2 RT PCR NEGATIVE; Reviewed. 10/11 12:26 Order name: CT Head Brain wo Cont; Complete Time: 14:06 cp 10/11 12:26 Order name: EKG; Complete Time: 12:27 cp 10/11 12:26 Order name: Cardiac monitoring; Complete Time: 13:04 cp 10/11 12:26 Order name: EKG - Nurse/Tech; Complete Time: 13:04 cp 10/11 12:26 Order name: IV Saline Lock; Complete Time: 12:38 cp 10/11 12:26 Order name: Labs collected and sent; Complete Time: 13:04 cp 10/11 12:26 Order name: O2 Per Protocol; Complete Time: 12:38 cp 10/11 12:26 Order name: O2 Sat Monitoring; Complete Time: 12:38 cp 10/11 14:08 Order name: Misc. Order: ambulate patient with pulse ox monitor; Complete Time: 14:25 cp EC:22 Rate is 60 beats/min. Rhythm is regular. AL interval is normal. QRS interval is normal. cp QT interval is normal. T waves are Inverted in lead aVR. Interpreted by me. Reviewed by me. Administered Medications: 12:52 Drug: Zofran (Ondansetron) 4 mg Route: IVP; Site: left forearm; ll1 14:26 Follow up: Response: No adverse reaction ll1 12:54 Drug: morphine 4 mg {Note: rass 0, pain 9/10.} Route: IVP; Site: left forearm; ll1 14:26 Follow up: Response: No adverse reaction ll1 12:55 Drug: Meclizine 25 mg Route: PO; ll1 14:26 Follow up: Response: No adverse reaction ll1 14:26 Drug: Potassium Effervescent Tablet 50 mEq Route: PO; ll1 14:33 Follow up: Response: No adverse reaction ll1 14:33 Drug: morphine 4 mg Route: IVP; Site: left forearm; ll1 15:17 Follow up: Response: No adverse reaction ll1 15:20 Drug: Lasix (furosemide) 20 mg Route: IVP; Site: left forearm; ll1 19:10 Follow up: Response: No adverse reaction as6 19:09 Drug: SOLU-Medrol (methylPrednisoLONE) 125 mg Route: IVP; Site: left forearm; as6 21:34 Follow up: Response: No adverse reaction as6 19:09 Drug: morphine 4 mg {Note: rass 0, pain 9/10.} Route: IVP; Site: left forearm; as6 21:34 Follow up: Response: No adverse reaction; RASS: Alert and Calm (0) as6 19:10 Drug: Zofran (Ondansetron) 4 mg Route: IVP; Site: left forearm; as6 21:34 Follow up: Response: No adverse reaction as6 Disposition Summary: 10/11/21 18:33 Hospitalization Ordered Hospitalization Status: Observation cp Provider: Brandon Shin cp Location: Telemetry/MedSurg (observation) cp Condition: Stable cp Problem: an acute exacerbation cp Symptoms: have improved cp Bed/Room Type: Standard cp Room Assignment: 217(10/11/21 19:37) dw Diagnosis - Unspecified combined systolic (congestive) and diastolic (congestive) heart failure cp - COPD/ Chronic obstructive pulmonary disease with (acute) exacerbation cp Forms: - Medication Reconciliation Form cp - SBAR form cp Signatures: Dispatcher [employer] Mary Sparks RN RN dw Smirch, Shelby, RN RN ss Page, Corey, PA PA cp Lewis, Lynsay, RN RN ll1 Dayo Ko RN RN as6 Corrections: (The following items were deleted from the chart) 19:37 18:33 cp dw
--- NOTE | 2021-10-11 18:34 | ER ---
Nurse's Notes [facility] Name: Fawn Fleming Age: 66 yrs Sex: Female : 1955 Arrival Date: 10/11/2021 Time: 11:45 Bed 7 Private MD: Diagnosis: Unspecified combined systolic (congestive) and diastolic (congestive) heart failure;COPD/ Chronic obstructive pulmonary disease with (acute) exacerbation Presentation: 10/11 11:51 Chief complaint: Patient states: Dizziness, shortness of breath and feeling unbalanced ss since last night about 2200. Coronavirus screen: Client denies travel out of the [place] in the last 14 days. Ebola Screen: Patient denies exposure to infectious person. Patient denies travel to an Ebola-affected area in the 21 days before illness onset. 11:51 Method Of Arrival: Ambulatory ss 11:53 Initial Sepsis Screen: Does the patient meet any 2 criteria? No. Patient's initial ss sepsis screen is negative. Does the patient have a suspected source of infection? No. Patient's initial sepsis screen is negative. Risk Assessment: Do you want to hurt yourself or someone else? Patient reports no desire to harm self or others. Onset of symptoms was October 10, 2021. 11:53 Acuity: LBAYNE 2 ss Historical: - Allergies: 11:46 Bactrim DS; ss 11:46 butorphanol tartrate; ss 11:46 Fentanyl; ss 11:46 Reglan; ss 11:46 Stadol; ss 11:46 sulfamethoxazole (bulk); ss 11:46 TRIMETHOPRIM; ss - PMHx: 11:46 Anxiety; Atrial Fib; Bipolar disorder; Chronic pain; COPD; esophageal varices; ss Hepatitis; HIV; Hypertension; Migraines; Panic Attacks; - PSHx: 11:46 Appendectomy; Bilateral shoulder repair; Cholecystectomy; hernia repair; R wrist SX; ss - Immunization history:: Client reports receiving the 2nd dose of the Covid vaccine. - Social history:: Smoking status: Patient/guardian denies using tobacco, the patient reports quitting approximately 1 years ago. Screenin:40 Abuse screen: Denies threats or abuse. Nutritional screening: No deficits noted. ll1 Tuberculosis screening: No symptoms or risk factors identified. Fall Risk IV access (20 points). Total Hauser Fall Scale indicates No Risk (0-24 pts). Assessment: 12:39 General: Appears uncomfortable, Behavior is cooperative, appropriate for age. Pain: ll1 Complains of pain in chest Quality of pain is described as pressure. Neuro: Reports dizziness. Cardiovascular: Reports chest pain. GI: Reports lower abdominal pain, upper abdominal pain. 13:24 Reassessment: No changes from previously documented assessment. Patient and/or family ll1 updated on plan of care and expected duration. Pain level reassessed. Patient is alert, oriented x 3, equal unlabored respirations, skin warm/dry/pink. Patient states symptoms have not improved. 14:08 Reassessment: No changes from previously documented assessment. Patient and/or family ll1 updated on plan of care and expected duration. Pain level reassessed. Patient is alert, oriented x 3, equal unlabored respirations, skin warm/dry/pink. 15:00 Reassessment: No changes from previously documented assessment. Patient and/or family ll1 updated on plan of care and expected duration. Pain level reassessed. Patient is alert, oriented x 3, equal unlabored respirations, skin warm/dry/pink. 16:00 Reassessment: No changes from previously documented assessment. Patient and/or family ll1 updated on plan of care and expected duration. Pain level reassessed. Patient is alert, oriented x 3, equal unlabored respirations, skin warm/dry/pink. Vital Signs: 11:51 BP 198 / 100; Pulse 69; Resp 20; Temp 97.1(TE); Pulse Ox 100% on R/A; Weight 95.25 kg; ss Height 5 ft. 4 in. (162.56 cm); Pain 0/10; 13:23 BP 167 / 95; Pulse 64; Resp 18; Pulse Ox 95% on R/A; ll1 14:08 BP 158 / 89; Pulse 61; Resp 17; Pulse Ox 94% ; ll1 14:26 ll1 16:21 BP 139 / 91; Pulse 68; Pulse Ox 94% ; ll1 17:42 BP 136 / 86; Pulse 65; Resp 18; Pulse Ox 94% ; ll1 11:51 Body Mass Index 36.05 (95.25 kg, 162.56 cm) ss 14:26 O2 sat 88-91% with ambulting. Patient feels SOB and wheezy after waking. ALEJO Florez ll1 infomred. ED Course: 11:45 Patient arrived in ED. ds1 11:53 Arm band placed on right wrist. ss 11:54 Triage completed. ss 12:16 Justus Neil PA is PHCP. cp 12:16 Liz Otoole MD is Attending Physician. cp 12:39 Yanira De Jesus RN is Primary Nurse. ll1 12:39 Inserted saline lock: 24 gauge in left forearm, using aseptic technique. Blood ll1 collected. 12:40 Patient has correct armband on for positive identification. Placed in gown. Bed in low ll1 position. Call light in reach. Pulse ox on. NIBP on. 12:46 CT Head Brain wo Cont In Process Unspecified. EDMS 13:28 XRAY Chest (1 view) In Process Unspecified. EDMS 18:32 Brandon Shin is Hospitalizing Provider. cp 21:32 No provider procedures requiring assistance completed. Patient admitted, IV remains in as6 place. Administered Medications: 12:52 Drug: Zofran (Ondansetron) 4 mg Route: IVP; Site: left forearm; ll1 14:26 Follow up: Response: No adverse reaction ll1 12:54 Drug: morphine 4 mg {Note: rass 0, pain 9/10.} Route: IVP; Site: left forearm; ll1 14:26 Follow up: Response: No adverse reaction ll1 12:55 Drug: Meclizine 25 mg Route: PO; ll1 14:26 Follow up: Response: No adverse reaction ll1 14:26 Drug: Potassium Effervescent Tablet 50 mEq Route: PO; ll1 14:33 Follow up: Response: No adverse reaction ll1 14:33 Drug: morphine 4 mg Route: IVP; Site: left forearm; ll1 15:17 Follow up: Response: No adverse reaction ll1 15:20 Drug: Lasix (furosemide) 20 mg Route: IVP; Site: left forearm; ll1 19:10 Follow up: Response: No adverse reaction as6 19:09 Drug: SOLU-Medrol (methylPrednisoLONE) 125 mg Route: IVP; Site: left forearm; as6 21:34 Follow up: Response: No adverse reaction as6 19:09 Drug: morphine 4 mg {Note: rass 0, pain 9/10.} Route: IVP; Site: left forearm; as6 21:34 Follow up: Response: No adverse reaction; RASS: Alert and Calm (0) as6 19:10 Drug: Zofran (Ondansetron) 4 mg Route: IVP; Site: left forearm; as6 21:34 Follow up: Response: No adverse reaction as6 Medication: 12:40 VIS not applicable for this client. ll1 Outcome: 18:33 Decision to Hospitalize by Provider. cp 21:33 Admitted to Med/surg accompanied by tech, via stretcher, room 217. as6 21:33 Condition: stable 21:33 Instructed on the need for admit. 21:36 Patient left the ED. as6 Signatures: Dispatcher [employer] EDWI Lainey Monson ds1 Sandra Cadet RN RN ss Justus Neil PA PA cp Lewis, Lynsay, ASHLEY RN ll1 Dayo Ko RN RN as6
[2021-10-11] MEDS ORDERED: METHYLPREDNISOLONE 125 MG INJ ONE (19:05)
--- NOTE | 2021-10-11 20:38 | P.HP ---
Certification for Inpatient Patient admitted to: Observation With expected LOS: <2 Midnights Patient will require the following post-hospital care: None Practitioner: I am a practitioner with admitting privileges, knowledge of patient current condition, hospital course, and medical plan of care. Services: Services provided to patient in accordance with Admission requirements found in Title 42 Section 412.3 of the Code of Federal Regulations Patient History Date of Service: 10/11/21 History of Present Illness: Patient is a 66-year-old female with past medical history of COPD, diastolic CHF, hypertension who presented to the ED with complaints of dizziness, shortness of breath, and dizziness x 1 day. She states when she is walking, she feels unbalanced and feels like she is veering to the left. Work- up revealed potassium of 3, BNP 7000, chest x-ray showed early failure vs volume overload, head CT negative. Patient was noted to be saturating at 92% on room air and saturated to the mid 80s while walking. She was given morphine, meclizine, potassium, Lasix, Solu-Medrol in the ED with some improvement in her symptoms. ED provider wishes to admit patient for observation. Allergies fentanyl Allergy (Severe, Verified 03/31/21 11:11) Hives butorphanol tartrate [From Stadol] Allergy (Verified 03/31/21 11:11) confusion metoclopramide HCl [From Reglan] Allergy (Verified 03/31/21 11:11) Shortness of breath sulfamethoxazole [From Bactrim] Allergy (Verified 03/31/21 11:11) Hives/Rash trimethoprim [From Bactrim] Allergy (Verified 03/31/21 11:11) Hives/Rash Bactrim DS Allergy (Intermediate, Uncoded 03/31/21 11:11) Nausea/Vomiting Home medications list reviewed: Yes Home Medications: Raltegravir Potassium [Isentress] 1 tab PO BID 02/28/12 Sertraline [Zoloft*] 2 tab PO DAILY 09/15/12 Metoprolol Tartrate 100 mg PO BID #60 tablet 02/03/20 Emtricitabine/Tenofov Alafenam [Descovy 200-25 mg Tablet] 1 tab PO DAILY 03/05/21 Amlodipine Besylate 1 tab PO DAILY 03/30/21 Buspirone HCl 30 mg PO BID 03/30/21 Dexlansoprazole [Dexilant] 60 mg PO DAILY 03/30/21 Docusate/Senna [Senokot-S*] 1 tab PO DAILY PRN 03/30/21 buPROPion HCL [Bupropion Xl] 1 tab PO DAILY 04/03/21 Ferrous Sulfate [Iron] 325 mg PO DAILY 30 Days #30 tablet 04/15/21 Albuterol Inhaler [Ventolin Inhaler*] 2 puff IH TID PRN #1 05/28/21 Amiodarone HCl [Cordarone*] 200 mg PO DAILY #30 tab 05/28/21 Mometasone/Formoterol [Dulera 200 Mcg/5 Mcg Inhaler] 2 puff IH BID #1 inhaler 05/28/21 Furosemide [Lasix] 40 mg PO BID #60 tablet 06/08/21 Benzonatate [Tessalon Perle*] 100 mg PO TID PRN #30 cap 06/20/21 Pantoprazole [Protonix Tab*] 40 mg PO BIDAC #60 tab 06/20/21 Lorazepam [Ativan] 1 tab PO BID 06/29/21 Albuterol Neb [Proventil 0.083% Neb Soln] 2.5 mg NEB [id number] PRN #60 amp 06/30/21 Guaifen W/Codeine Syrup [ROBITUSSIN A-C Syrup*] 5 ml PO Q12HP PRN #100 ml 06/30/21 Hydralazine HCl 50 mg PO TID #90 06/30/21 Hydrocodone 7.5/APAP 325 [[place] 7.5/325 mg*] 1 tab PO Q6H PRN #30 tab 06/30/21 Hydrocortisone Cream [Hydrocortisone 1% Cream*] 1 appl TOP TID PRN #1 tube 06/30/21 Ipratropium Neb [Atrovent*] 0.5 mg NEB [id number] PRN #60 amp 06/30/21 Nifedipine Xl [Procardia XL*] 60 mg PO DAILY #30 tab 06/30/21 predniSONE [Prednisone*] 20 mg PO BID #10 tab 06/30/21 Clopidogrel Bisulfate [Plavix*] 75 mg PO DAILY 08/28/21 Famotidine 40 mg PO DAILY 08/28/21 Lisinopril [Zestril] 1 tab PO BID 08/28/21 - Past Medical/Surgical History Diabetic: No -: HIV- viral load currently undectable -: CAD -: Bipolar disorder -: Hypertension -: COPD on home O2 -: Tobacco abuse -: former Alcohol abuse -: Anemia of chronic disease -: Hyperlipidemia -: GERD with hiatal hernia -: Atrial fibrillation on chronic anticoagulation therapy -: Chronic diastolic CHF -: Appendectomy -: Cholecystectomy -: left and right shoulder rotator cuff repair -: Right foot repair -: Right shoulder replacement -: right wrist -: hiatal hernia repair february 2021 Psychosocial/ Personal History: She lives at home. She is not . - Family History Father -: Heart disease, Hypertension, Lung disease, GI disease, Diabetes, Stroke, Liver disease, Kidney disease Mother -: Hypertension, Lung disease, GI disease, Blood disorders, Other (see notes) Notes: Epilepsy, chronic pain, leukemia - Social History Smoking Status: Former smoker Alcohol use: No CD- Drugs: No Caffeine use: Yes Place of Residence: Home Review of Systems General: Weakness Respiratory: Shortness of Breath, SOB with Excertion Neurological: Incoordination, As per HPI Physical Examination - Physical Exam General: Alert, In no apparent distress HEENT: Atraumatic, PERRLA, EOMI, Sclerae nonicteric Neck: Supple, 2+ carotid pulse no bruit, No LAD, Without JVD or thyroid abnormality Respiratory: Diminished Cardiovascular: No edema, Regular rate/rhythm, Normal S1 S2 Gastrointestinal: Normal bowel sounds, Soft and benign, Non-distended, No tenderness Musculoskeletal: No tenderness Integumentary: No rashes Neurological: Normal gait, Normal speech, Normal strength at 5/5 x4 extr, Normal tone, Normal affect - Studies Laboratory Data (last 24 hrs) 10/11/21 13:04: PT 12.0, INR 1.09 10/11/21 13:04: WBC 5.3 D, Hgb 9.5 L, Hct 31.2 L, Plt Count 169 D 10/11/21 13:04: Sodium 139, Potassium 3.0 L, BUN 13, Creatinine 0.83, Glucose 102, Magnesium 1.9, Total Bilirubin 0.5, AST 29, ALT 23, Alkaline Phosphatase 83 Assessment and Plan - Problems (Diagnosis) (1) Acute on chronic diastolic heart failure Current Visit: Yes Status: Acute (2) COPD exacerbation Current Visit: Yes Status: Acute (3) Dyspnea Onset Date: 10/06/16 Current Visit: Yes Status: Acute Qualifiers: Dyspnea type: shortness of breath Qualified Code(s): R06.02 - Shortness of breath; R06.00 - Dyspnea, unspecified; R06.01 - Orthopnea (4) GERD (gastroesophageal reflux disease) Current Visit: Yes Status: Chronic Qualifiers: Esophagitis presence: without esophagitis Qualified Code(s): K21.9 - Gastro-esophageal reflux disease without esophagitis (5) Atrial fibrillation Current Visit: No Status: Chronic Qualifiers: Atrial fibrillation type: unspecified Qualified Code(s): I48.91 - Unspecified atrial fibrillation (6) HIV (human immunodeficiency virus infection) Current Visit: No Status: Chronic Qualifiers: HIV symptom status: unspecified Qualified Code(s): B20 - Human immunodeficiency virus [HIV] disease (7) Hypertension Onset Date: 05/26/15 Current Visit: Yes Status: Chronic Qualifiers: Hypertension type: primary hypertension Qualified Code(s): I10 - Essential (primary) hypertension (8) Dizziness Current Visit: Yes Status: Acute (9) Hypokalemia Current Visit: Yes Status: Acute - Plan -last echo 3 months ago showed normal EF -continue IV lasix -continue O2 and monitor saturation -daily weights -heart healthy diet -hydralazine PRN BP spikes -breathing treatments as needed -replete potassium. monitor on telemetry -meclizine PRN dizziness. If symptoms persists, consider futher work up -reconcile and continue home medications -DVT ppx Discharge Plan: Home Plan to discharge in: 24 Hours - Advance Directives Does patient have a Living Will: No Does patient have a Durable POA for Healthcare: No - Code Status/Comfort Care Code Status Assessed: Yes (Full) Critical Care: No Time Spent Managing Pts Care (In Minutes): 70
[2021-10-11] MEDS ORDERED: IPRATROPIUM BROM 0.5MG/2.5ML NEB PRN (21:46)
[2021-10-11] MEDS ORDERED: ONDANSETRON 4 MG/2 ML VIAL IV PRN (21:46)
[2021-10-11] MEDS ORDERED: ALBUTEROL 2.5 MG/3 ML NEB SOL NEB PRN (21:46)
[2021-10-11] MEDS: MECLIZINE HCL 12.5 MG TAB PO SCH (22:18)
[2021-10-11 22:20] VITALS: BMI 34.5
[2021-10-12] MEDS: MORPHINE 2 MG/ML SYR IV PRN ×6 (00:06→20:38)
[2021-10-12 03:38] LABS: Absolute Lymphocytes (CBC) 0.6 K/uL (0.7-4.9); Hematocrit 30.9 % (36.0-45.0); Lymphocytes % 12.6 % (15.3-44.8); MPV 7.5 fL (7.6-11.3); RBC Red Blood Cell Count 4.25 M/uL (3.86-4.86)
[2021-10-12 03:50] LABS: Albumin 3.3 g/dL (3.4-5.0); Bilirubin Total 0.4 mg/dL (0.2-1.0); Magnesium 2.1 mg/dL (1.8-2.4); Phosphorus 4.7 mg/dL (2.5-4.9); Protein, Total 7.3 g/dL (6.4-8.2)
[2021-10-12] MEDS: FUROSEMIDE 40 MG/4 ML VIAL IV SCH ×2 (08:19→16:07)
[2021-10-12] MEDS: MECLIZINE HCL 12.5 MG TAB PO SCH ×3 (08:19→20:39)
[2021-10-12] MEDS ORDERED: ENOXAPARIN 40 MG/0.4 ML SQ SCH (09:00)
--- NOTE | 2021-10-12 11:25 | EKG ---
Test Date: 2021-10-11 Test Time: 13:16:29 [employer] Work[employer]: DC MEASUREMENT RESULTS: Intervals: Rate: 60 ID: [id number] QRSD: 84 QT: 482 QTc: 482 [place]: P: 37 ID: [id number] QRS: 74 T: 71 INTERPRETIVE STATEMENTS: Sinus rhythm with premature atrial complexes Nonspecific ST abnormality Abnormal ECG Compared to ECG 10/03/2021 16:37:53 Atrial premature complex(es) now present ST (T wave) deviation now present Left ventricular hypertrophy no longer present Early repolarization no longer present Electronically Signed On 10-12-21 11:23:28 CDT by Per Crane
--- NOTE | 2021-10-12 11:42 | RAD REPORT ---
EXAM DESCRIPTION: NM - Rest Stress Cardiac Imaging - 10/12/2021 11:29 am CLINICAL HISTORY: CP Chest pain. COMPARISON: Rest Stress Cardiac Imaging dated 04/02/2020 TECHNIQUE: The patient was administered approximately 10mCi of Tc 99m Sestamibi prior to resting SPE CT imaging of the heart. The patient was then administered approximately 30 mCi of Tc 99m Sestamibi f ollowing exercise or pharmacologic stress. Multiplanar SPECT images were reviewed. FINDINGS: There is a moderate sized area of mild stress-induced ischemia affecting the lateral wall. No fixed defect is seen to suggest hibernating myocardium or scarred myocardium. The end diastolic volume is 124 ml, the end systolic volume is 60 ml, and the ejection fraction is 52 %. IMPRESSION: Moderate sized area of mild stress-induced ischemia affecting the lateral wall.
--- NOTE | 2021-10-12 12:48 | TREADPHA ---
DX: CHEST PAIN Date of Study: 10/12/2021 Ht: 5' 4 " Wt: 201 lb 8 oz Consulting Physician: KEYLA MEDICATIONS: LOVENOX, LASIX, ANTIVERT, PROVENTIL HISTORY: 66 YEAR OLD HYPERTENSION, CHOLESTEROL, HIV, HEPATITIS WITH ATYPICAL CHEST PAIN. PHYSICIAL EXAMINATION: RESTING B.P.: 183/99 RESTING H.R.: 65 RESTING EKG: SINUS RHYTHM, LEFT VENTRICULAR HYPERTESION PROTOCOL: PHARMACOLOGIC EXERCISE TIME: 3:30 B.P. AT PEAK STRESS: 150/89 IMPRESSION: LEXISCAN INJECTED. CARDIOLITE INJECTED (SEE NUCLEAR MEDICINE REPORT). NO COMPLAINTS OF CHEST PAIN OR SHORTNESS OF BREATH. NO VENTRICULAR TACHYCARDIA/ SUPRAVENTRICULAR TACHYCARDIA. NO ARRHYTHMIA NOTED.
--- NOTE | 2021-10-12 13:40 | CON ---
Date of Consultation: 10/12/2021 Reason For Consultation: Chest pain and congestive heart failure. History Of Present Illness: Ms. Fleming is a 66-year-old white woman. She is a patient of Dr. Lund in the office. Has had an extensive past medical history including HIV, hepatitis, hypertension, [place] PD, bipolar disorder, anxiety, and atrial fibrillation. She came in with chest pain that is midepiga stric, radiating to the back with some shortness of breath, dizziness, and COPD exacerbation. Echoca rdiogram recently had showed LVH with a normal ejection fraction. She will also have a Lexiscan in t office, but IV access was a problem. She was going to have an endoscopy with possible esophageal dilatation by Dr. Montes. She needs a cardiac clearance in that regard. She denied PND, orthopnea . Has had pedal edema. Has had shortness of breath. No syncope. No fever or chills. So far, her potassium is 3.0. Troponin is negative. Creatinine is 1.88, hemoglobin 9.4, glucose is 143. BNP of 7216. EKG is nonspecific. Chest x-ray showed mild CHF. Past Medical History: As stated above. Allergies: SHE IS ALLERGIC TO BACTRIM AND FENTANYL. Review of Systems: Negative. Social History: Negative. Family History: Noncontributory. Medications: At home include inhalers, Pepcid, Procardia, Zoloft, Lasix, Plavix, amiodarone, amlodip ine, hydralazine, Ativan, lisinopril, metoprolol, and Dexilant. Physical Examination: General: She is a very pleasant. No acute distress. Vital Signs: Stable, afebrile, sinus rhythm. HEENT: Negative. Neck: Supple with no bruit, lymphadenopathy, JVD, or thyromegaly. Chest: Clear to auscultation and percussion. Cardiac: Revealed a regular rhythm and rate with S4 gallops. Abdomen: Benign. Extremities: Revealed trace edema. Skin: Warm, dry, and intact. Neurological: She was nonfocal. Pulses are present distally bilaterally. Diagnostic Data: As stated earlier. Impression And Plan: 1.Atypical chest pain, possibly gastroesophageal reflux related to esophageal stricture. Neverthele ss, she has so many cardiac risk factors. I think really she needs a Lexiscan to evaluate her chest pain and for cardiac clearance for endoscopy by Dr. Montes. We will plan to do that today. 2.Acute on chronic diastolic congestive heart failure. 3.Chronic obstructive pulmonary disease exacerbation. 4.Anxiety. 5.Human immunodeficiency virus. 6.Hepatitis. 7.Atrial fibrillation, in sinus rhythm, on amiodarone. Her other problems include bipolar disorder, hypertension, and migraine all of those are stable. She has hyperlipidemia and needs to be correcte d. Her creatinine is 1.88. We need to watch that. While we were diuresing, she has some mild anemi a probably related to renal disease. Her BNP elevation is consistent with congestive heart failure. I will continue her present regimen, gentle diuresis, watch her creatinine, get a Lexiscan today, an d we will see what we find on her stress test before making further decisions. JEROME/KIRTI Voice ID: [id number] Report ID: [id number]
--- NOTE | 2021-10-12 16:53 | P.PN ---
Subjective Date of Service: 10/12/21 Chief Complaint: Chest pain, dizziness Patient stated her dizziness is better but she is complaining of shortness of breath, worse with exertion. She also reports nonproductive cough and wheezing. Physical Examination - Vital Signs Temperature: 97.0 F Blood Pressure: 122/61 Pulse: 61 Respirations: 18 Pulse Ox (%): 98 - Physical Exam General: Alert, In no apparent distress, Oriented x3 HEENT: Mucous membr. moist/pink Neck: JVD not distended Respiratory: Normal air movement, Expiratory wheezes (Bilateral) Cardiovascular: Regular rate/rhythm, Normal S1 S2, Edema Gastrointestinal: Soft and benign, Non-distended, No tenderness Musculoskeletal: No swelling, No tenderness Integumentary: No rashes, No cyanosis Neurological: Normal speech, Normal strength at 5/5 x4 extr Assessment And Plan - Current Problems (Diagnosis) (1) Acute on chronic diastolic heart failure Current Visit: Yes Status: Acute (2) COPD exacerbation Current Visit: Yes Status: Acute (3) Chest pain Onset Date: 05/26/15 Current Visit: No Status: Acute Qualifiers: Chest pain type: unspecified Qualified Code(s): R07.9 - Chest pain, unspecified (4) Atrial fibrillation Current Visit: No Status: Chronic Qualifiers: Atrial fibrillation type: unspecified Qualified Code(s): I48.91 - Unspecified atrial fibrillation (5) Coronary artery disease Current Visit: Yes Status: Acute (6) Chronic respiratory failure with hypoxia Current Visit: Yes Status: Acute (7) Hypertension Current Visit: No Status: Chronic Qualifiers: Hypertension type: primary hypertension Qualified Code(s): I10 - Essential (primary) hypertension (8) Acute renal failure Current Visit: Yes Status: Acute - Plan Patient seen by cardiology and nuclear stress test done. Nuclear stress test report reversible ischemia. Dr. Crane is planning cardiac catheterization tomorrow. Scheduled bronchodilators IV steroid. Hold Lasix due to acute renal failure. Hold lisinopril Blood pressure control. Continue metoprolol and hydralazine. Monitor electrolytes and renal function. Resume HIV medications.
[2021-10-12] MEDS ORDERED: ALBUTEROL 2.5 MG/3 ML NEB SOL NEB PRN (19:00)
[2021-10-12 19:19] LABS: Urine Appearance Clear (Clear); Urine Bilirubin Negative (Negative); Urine Blood Negative (Negative); Urine Color Yellow (Yellow); Urine Glucose Negative (Negative); Urine Protein Negative (Negative); Urine Urobilinogen 0.2 mg/dL (0.2-1.0)
[2021-10-12 19:20] LABS: Urine Microscopic Reflex ORDER UMIC
[2021-10-12 19:48] LABS: Urine Bacteria 20-50 /HPF (<20); Urine RBC NONE SEEN /HPF (NONE SEEN)
[2021-10-12] MEDS: HYDRALAZINE HCL 25 MG TABLET PO SCH (20:40)
[2021-10-12] MEDS: LORAZEPAM 1 MG TABLET PO SCH (20:40)
[2021-10-12] MEDS: METOPROLOL TAR 50 MG TAB PO SCH (20:40)
[2021-10-12] MEDS: SERTRALINE HCL 100 MG TAB PO SCH (20:41)
[2021-10-12] MEDS: ACETYLCYST 20% 800 MG/4 ML VIAL PO SCH (20:41)
[2021-10-12] MEDS: RALTEGRAVIR POTASSIUM 400 MG PO SCH (20:42)
[2021-10-12] MEDS ORDERED: HOME MED 1 EA UNK (Metoprolol Tartrate [Metoprolol Tartrate] 100 MG Tablet) PO SCH (21:00)
[2021-10-12] MEDS ORDERED: HOME MED 1 EA UNK (Hydralazine Hcl [Hydralazine Hcl] 50 MG Tablet) PO SCH (21:00)
--- NOTE | 2021-10-12 21:05 | P.PN ---
Date of Service: 10/13/21 Subjective: continues with some dizziness, shortness of breath scheduled for cardiac cath today denies new symptoms ROS: 10 point RoS as noted above, otherwise negative Physical Exam General: Alert, uncomfortable HEENT: Mucous membr. moist/pink Respiratory: b/l wheeze, nonlabored respirations Cardiovascular: Regular rate/rhythm, mild b/l edema Gastrointestinal: soft, nontender, nondistended Musculoskeletal: No swelling, No tenderness Integumentary: No rashes, No erythema, No cyanosis Problem List acute on chronic hypoxemic respiratory failure secondary to acute on chronic diastolic CHF (HFpEF) acute on chronic COPD exacerbation chest pain acute renal failure h/o afib, paroxysmal h/o CAD h/o HTN +nuclear stress on 10/12 cardiology consulted cath planned for 10/13 ROHAN developed, possibly from diuretics, lasix held, ACEI held; nephrology consulted, monitor for worsening ROHAN due to cath BP control continue home HIV medications continue bronchodilators as needed for COPD, avoid steroids with possible CAD/ACS VTE: lovenox Code: full Dispo: home, ~1-2 days
[2021-10-13] MEDS: MORPHINE 2 MG/ML SYR IV PRN ×4 (00:10→21:30)
[2021-10-13 04:13] LABS: MPV 7.5 fL (7.6-11.3); RBC Red Blood Cell Count 4.08 M/uL (3.86-4.86)
[2021-10-13 04:29] LABS: Bilirubin Total 0.3 mg/dL (0.2-1.0); Potassium 3.1 mmol/L (3.5-5.1); Protein, Total 6.7 g/dL (6.4-8.2)
[2021-10-13] MEDS ORDERED: KCL 20 MEQ/100 mL IVPB 20 MEQ/100 ML BAG IV SCH (05:00)
[2021-10-13] MEDS ORDERED: NA CHLORIDE 0.9% 250 ML ONE (05:26)
[2021-10-13] MEDS: METOPROLOL TAR 50 MG TAB PO SCH ×2 (05:37→20:43)
[2021-10-13] MEDS: AMLODIPINE 10 MG TAB PO SCH (05:38)
[2021-10-13] MEDS ORDERED: HEPA 1000U/500MLS 1,000 UNIT/500 ML BAG IV ONE (06:27)
[2021-10-13] MEDS: ACETYLCYST 20% 800 MG/4 ML VIAL PO SCH ×3 (08:09→21:29)
[2021-10-13] MEDS: MECLIZINE HCL 12.5 MG TAB PO SCH ×3 (08:10→20:42)
[2021-10-13] MEDS: ENOXAPARIN 30 MG/0.3 ML SQ SCH (08:10)
[2021-10-13] MEDS: RALTEGRAVIR POTASSIUM 400 MG PO SCH ×2 (08:10→20:44)
[2021-10-13] MEDS: LORAZEPAM 1 MG TABLET PO SCH ×3 (08:10→20:43)
[2021-10-13] MEDS: SERTRALINE HCL 100 MG TAB PO SCH ×2 (08:10→20:43)
[2021-10-13] MEDS: TENOFOV ALAFENAM PO SCH (08:10)
[2021-10-13] MEDS: EMTRICITABINE PO SCH (08:10)
[2021-10-13] MEDS ORDERED: RALTEGRAVIR POTASSIUM 400 MG PO SCH (09:00)
[2021-10-13] MEDS ORDERED: NA CHLORIDE 0.9% 500 ML ONE (09:48)
[2021-10-13] MEDS ORDERED: FENTANYL CITR 100 MCG/2 ML ONE (12:02)
[2021-10-13] MEDS ORDERED: MIDAZOLAM HCL 2 MG/2 ML INJ ONE (12:03)
[2021-10-13] MEDS ORDERED: NA CHLORIDE 0.9% 0 ML ONE (12:03)
[2021-10-13] MEDS ORDERED: ATROPINE SULF 1 MG/10 ML SYR IV ONE (12:03)
--- NOTE | 2021-10-13 15:17 | P.CNS ---
Reason for Consult: ROHAN, Hypokalemia. Requesting Physician: judit chen Chief Complaint: Chest pain, dizziness History of Present Illness: Patient is a 66-year-old female with past medical history of COPD, diastolic CHF, hypertension who presented to the ED with complaints of dizziness, shortness of breath, and dizziness x 1 day. She states when she is walking, she feels unbalanced and feels like she is veering to the left. Work- up revealed potassium of 3, BNP 7000, chest x-ray showed early failure vs volume overload, head CT negative. Patient was noted to be saturating at 92% on room air and saturated to the mid 80s while walking. She was given morphine, mecliz ine, potassium, Lasix, Solu-Medrol in the ED with some improvement in her symptoms. ED provider wishes to admit patient for observation. Her cr stayed elevated at 1.88 yesterday prompting nephrology. today, her cr is 1.77 today and her potassium is 3.0. No new issues with sob, chest pain, cough, leg swelling. She had left heart cath done today. Allergies fentanyl Allergy (Severe, Verified 03/31/21 11:11) Hives butorphanol tartrate [From Stadol] Allergy (Verified 03/31/21 11:11) confusion metoclopramide HCl [From Reglan] Allergy (Verified 03/31/21 11:11) Shortness of breath sulfamethoxazole [From Bactrim] Allergy (Verified 03/31/21 11:11) Hives/Rash trimethoprim [From Bactrim] Allergy (Verified 03/31/21 11:11) Hives/Rash Bactrim DS Allergy (Intermediate, Uncoded 03/31/21 11:11) Nausea/Vomiting Home Medications: Raltegravir Potassium [Isentress] 1 tab PO BID 02/28/12 Sertraline [Zoloft*] 1 tab PO BID 09/15/12 Metoprolol Tartrate 100 mg PO BID #60 tablet 02/03/20 Emtricitabine/Tenofov Alafenam [Descovy 200-25 mg Tablet] 1 tab PO DAILY 03/05/21 Amlodipine Besylate 1 tab PO DAILY 03/30/21 Dexlansoprazole [Dexilant] 60 mg PO DAILY 03/30/21 Lorazepam [Ativan] 1 tab PO TID 06/29/21 Lisinopril [Zestril] 1 tab PO BID 08/28/21 Hydralazine HCl 50 mg PO BEDTIME 10/12/21 - Past Medical/Surgical History Diabetic: No -: HIV- viral load currently undectable -: CAD -: Bipolar disorder -: Hypertension -: COPD on home O2 -: Tobacco abuse -: former Alcohol abuse -: Anemia of chronic disease -: Hyperlipidemia -: GERD with hiatal hernia -: Atrial fibrillation on chronic anticoagulation therapy -: Chronic diastolic CHF -: Appendectomy -: Cholecystectomy -: left and right shoulder rotator cuff repair -: Right foot repair -: Right shoulder replacement -: right wrist -: hiatal hernia repair february 2021 Psychosocial/ Personal History: She lives at home. She is not . - Family History Father Medical History: Heart disease, Hypertension, Lung disease, GI disease, Diabetes, Stroke, Liver disease, Kidney disease Mother Medical History: Hypertension, Lung disease, GI disease, Blood disorders, Other (see notes) Notes: Epilepsy, chronic pain, leukemia - Social History Smoking Status: Unknown if ever smoked Alcohol use: No CD- Drugs: No Caffeine use: Yes Place of Residence: Home Review of Systems General: Unremarkable Eyes: Unremarkable ENT: Unremarkable Respiratory: Shortness of Breath, SOB with Excertion Cardiovascular: Orthopnea, Paroxysmal Noc. Dyspnea, Edema, Unremarkable Gastrointestinal: Unremarkable Genitourinary: Unremarkable Musculoskeletal: Unremarkable Integumentary: Unremarkable Neurological: Unremarkable Physical Examination Temp Pulse Resp BP Pulse Ox 96.5 F L 60 18 153/81 H 96 10/13/21 13:45 10/13/21 13:45 10/13/21 15:01 10/13/21 13:45 10/13/21 15:01 General: Alert, Oriented x3 HEENT: Atraumatic, Normocephalic Neck: Supple Respiratory: Normal air movement Cardiovascular: Regular rate/rhythm, Normal S1 S2 Gastrointestinal: Soft and benign Musculoskeletal: No swelling Neurological: Normal strength at 5/5 x4 extr Conclusions/Impression: CHF Hypertension Hypokalemia ROHAN Contrast exposure. Plan: Present kidney function abnormalities and secondary to cardiorenal syndrome related issue. Diuresis has been started and patient is improving. Creatinine is now 1.77 from 1.88 yesterday. Will follow closely. Will monitor input and output closely. Will continue fluid restriction and low-sodium diet. Potassium is low at 3.0. We will replete and follow. She had left heart cath done yesterday and there is concern for contrast-induced nephropathy related issue. Will follow closely.
[2021-10-13] MEDS: HYDRALAZINE HCL 25 MG TABLET PO SCH (20:42)
--- NOTE | 2021-10-13 23:07 | OP ---
Date of Procedure: 10/13/2021 Surgeon: Per Crane MD Rn Labor And Delivery: Ms. Mona Ayala. The patient can go home today after 2 hours of bed rest. We will see her in the office in 2 weeks. Procedure In Detail: The patient was brought to the medical laboratory technicians today as an inpatient on 10/13/2021 for left heart catheterization because of abnormal stress test and chest pain. She was prepped and drap ed in routine sterile fashion, given Versed and fentanyl for sedation. A 6-Kazakh sheath was introdu mauricio in the right common femoral artery successfully using 10 cc of Xylocaine and the Seldinger techni que. A common femoral artery angiogram was normal. Angio-Seal was used to close the case. Diagnost ic catheterization was performed using Saurabh catheter, left and right. She was found to have perfe ctly normal coronaries. The patient tolerated the procedure well. There were no complication and bl ood loss was 5 cc. Postoperative Diagnoses: Normal coronaries, positive stress tests, atypical chest pain. Plan: To continue medical therapy. Total Conscious Sedation Time: 30 minutes. JEROME/KIRTI Voice ID: [id number] Report ID: [id number]
--- NOTE | 2021-10-14 00:29 | P.PN ---
Date of Service: 10/14/21 Paged by nursing staff for reported fall. When I went to see the patient she was lying in the bed she reports that she attempted to ambulate to the restroom on her own in between her bed and the restroom doorway she slipped with a mechanical fall landing on her buttocks she denies any additional injuries did not have any trauma to her head or neck not complaining of significant pain at this time with assistance was able to get back to the bed. At this time patient is resting in bed comfortably no additional orders placed we will continue to monitor.
[2021-10-14 03:22] LABS: Hematocrit 28.3 % (36.0-45.0); MPV 7.2 fL (7.6-11.3); RBC Red Blood Cell Count 3.88 M/uL (3.86-4.86)
[2021-10-14 03:40] LABS: Magnesium 2.3 mg/dL (1.8-2.4); Potassium 3.2 mmol/L (3.5-5.1)
--- NOTE | 2021-10-14 07:49 | RAD REPORT ---
EXAM DESCRIPTION: RAD - Chest Single View - 10/14/2021 5:45 am CLINICAL HISTORY: hypoxia, f/u chf COMPARISON: Chest Single View dated 10/11/2021; Chest Single View dated 10/03/2021; Chest Single View dated 10/01/2021; Chest Single View dated 09/20/2021 FINDINGS: Lines: None. Lungs: Prominence of the pulmonary vasculature Pleural: No significant pleural effusions or pneumothorax. Cardiac: Cardiomegaly. Bones: No acute fractures. Shoulder arthroplasties. Other: IMPRESSION: Mild congestive heart failure suspected and similar to 10/11/2021.
[2021-10-14] MEDS: SERTRALINE HCL 100 MG TAB PO SCH ×2 (08:26→20:33)
[2021-10-14] MEDS: ENOXAPARIN 30 MG/0.3 ML SQ SCH ×2 (08:26→09:45)
[2021-10-14] MEDS: MECLIZINE HCL 12.5 MG TAB PO SCH ×3 (08:26→20:29)
[2021-10-14] MEDS: LORAZEPAM 1 MG TABLET PO SCH ×3 (08:26→20:31)
[2021-10-14] MEDS: EMTRICITABINE PO SCH (08:27)
[2021-10-14] MEDS: TENOFOV ALAFENAM PO SCH (08:27)
[2021-10-14] MEDS: RALTEGRAVIR POTASSIUM 400 MG PO SCH ×2 (08:27→20:31)
[2021-10-14] MEDS: ACETYLCYST 20% 800 MG/4 ML VIAL PO SCH (08:28)
[2021-10-14] MEDS: AMLODIPINE 10 MG TAB PO SCH (08:28)
[2021-10-14] MEDS ORDERED: POTASSIUM CL SA 10 MEQ TAB PO ONE (09:00)
[2021-10-14] MEDS: METOPROLOL TAR 50 MG TAB PO SCH ×2 (09:00→20:32)
--- NOTE | 2021-10-14 10:10 | P.PN ---
Subjective Date of Service: 10/14/21 Chief Complaint: Chest pain, dizziness Subjective: No new changes, Improving Physical Examination - Vital Signs Temperature: 96.5 F Blood Pressure: 165/69 Pulse: 54 Respirations: 18 Pulse Ox (%): 94 - Physical Exam General: Alert, Oriented x3 HEENT: Atraumatic, Normocephalic Neck: Supple Respiratory: Clear to auscultation bilaterally, Normal air movement Cardiovascular: Regular rate/rhythm, Normal S1 S2 Gastrointestinal: Soft and benign Neurological: Normal speech, Normal strength at 5/5 x4 extr Assessment And Plan - Plan CHF Hypertension Hypokalemia ROHAN Contrast exposure. Plan: Renal function is much improved today. Creatinine is 1.17 today. Continue present care with hydration and follow trend of kidney function. Potassium is slightly poor. Will replete and monitor. She had left heart cath done yesterday and there is concern for contrast-induced nephropathy related issue. Will follow closely.
[2021-10-14] MEDS: ACETAMINOPHEN 500 MG TAB PO PRN ×2 (12:53→20:33)
--- NOTE | 2021-10-14 16:47 | P.PN ---
Date of Service: 10/14/21 Subjective: feeling better, still with mild dizziness shortness of breath about the same, maybe slight improvement, wheezing ROS: 10 point RoS as noted above, otherwise negative Physical Exam General: Alert, NAD HEENT: Mucous membr. moist/pink Respiratory: b/l wheeze, mild labored respirations on 2L NC Cardiovascular: Regular rate/rhythm, mild b/l edema Gastrointestinal: soft, nontender, nondistended Integumentary: No rashes, No erythema, No cyanosis Problem List acute on chronic hypoxemic respiratory failure secondary to acute on chronic diastolic CHF (HFpEF) acute on chronic COPD exacerbation chest pain acute renal failure h/o afib, paroxysmal h/o CAD h/o HTN +nuclear stress on 10/12, cardiology consulted cath (10/13) negative, no intervention needed improving ROHAN developed on hospital day 2, possibly from diuresis. Lasix and GREG held, improved nephrology consulted monitor for contrast induced nephropathy continue home HIV medications continue bronchodilators as needed for COPD UA on 10/12 with bacteruria and leuk est, patient denies UTI symptoms, afebrile; hold off on antibiotics at this VTE: lovenox Code: full Dispo: home, ~1 day
[2021-10-14] MEDS: HYDRALAZINE HCL 25 MG TABLET PO SCH (20:30)
[2021-10-15 06:32] LABS: Magnesium 2.4 mg/dL (1.8-2.4); Potassium 3.9 mmol/L (3.5-5.1)
[2021-10-15 06:35] LABS: Hematocrit 28.4 % (36.0-45.0); MPV 7.4 fL (7.6-11.3); RBC Red Blood Cell Count 3.91 M/uL (3.86-4.86)
[2021-10-15] MEDS ORDERED: clonazePAM 1 MG TAB PO PRN (06:50)
--- NOTE | 2021-10-15 06:54 | P.PN ---
Date of Service: 10/15/21 Subjective: headache, BP elevated breathing better, mild dizziness ROS: 10 point RoS as noted above, otherwise negative Physical Exam General: Alert, NAD HEENT: Mucous membr. moist/pink Respiratory: b/l wheeze, nonlabored respirations on 2L NC Cardiovascular: Regular rate/rhythm, mild b/l edema Gastrointestinal: soft, nontender, nondistended Integumentary: No rashes, No erythema, No cyanosis Problem List acute on chronic hypoxemic respiratory failure secondary to acute on chronic diastolic CHF (HFpEF) acute on chronic COPD exacerbation chest pain acute renal failure h/o afib, paroxysmal h/o CAD h/o HTN +nuclear stress on 10/12, cardiology consulted cath (10/13) negative, no intervention needed improving ROHAN developed on hospital day 2, possibly from diuresis. Lasix and GREG held, improved CXR with pulm edema and patient's breathing was slightly more labored on 10/14, lasix restarted nephrology consulted monitor for contrast induced nephropathy, Cr stable continue home HIV medications continue bronchodilators as needed for COPD UA on 10/12 with bacteruria and leuk est, patient initially denied UTI symptoms, now states she has been having some dysuria start levaquin VTE: lovenox Code: full Dispo: home, ~1 day
[2021-10-15] MEDS: FUROSEMIDE 40 MG/4 ML VIAL IV SCH (08:09)
[2021-10-15] MEDS: ENOXAPARIN 40 MG/0.4 ML SQ SCH (08:10)
[2021-10-15] MEDS: MECLIZINE HCL 12.5 MG TAB PO SCH ×3 (08:10→21:39)
[2021-10-15] MEDS: METOPROLOL TAR 50 MG TAB PO SCH ×2 (08:10→21:39)
[2021-10-15] MEDS: SERTRALINE HCL 100 MG TAB PO SCH ×2 (08:10→21:40)
[2021-10-15] MEDS: AMLODIPINE 10 MG TAB PO SCH (08:10)
[2021-10-15] MEDS: EMTRICITABINE PO SCH (08:11)
[2021-10-15] MEDS: RALTEGRAVIR POTASSIUM 400 MG PO SCH ×2 (08:11→21:00)
[2021-10-15] MEDS: TENOFOV ALAFENAM PO SCH (08:11)
[2021-10-15] MEDS ORDERED: POTASSIUM CL SA 10 MEQ TAB PO ONE (09:00)
--- NOTE | 2021-10-15 11:11 | P.PN ---
Subjective Date of Service: 10/15/21 Chief Complaint: Chest pain, dizziness Subjective: No new changes, Improving Physical Examination - Vital Signs Temperature: 97.1 F Blood Pressure: 167/79 Pulse: 64 Respirations: 20 Pulse Ox (%): 99 - Physical Exam General: Alert, Oriented x3 HEENT: Atraumatic, Normocephalic Neck: Supple Respiratory: Normal air movement Cardiovascular: Regular rate/rhythm, Normal S1 S2 Gastrointestinal: Soft and benign Musculoskeletal: No swelling Neurological: Normal speech Assessment And Plan - Plan CHF Hypertension Hypokalemia ROHAN Contrast exposure. Plan: Renal function is much improved today. Creatinine is 0.83 today. Continue present care with hydration and follow trend of kidney function. Potassium is better today at 3.8. we will follow trend Will replete and monitor. No significant concern for JANEEN at this point. we will monitor trend while admitted.
[2021-10-15] MEDS ORDERED: HYDRALAZINE HCL 20 MG/ML VIAL IV PRN (12:15)
[2021-10-15] MEDS: ACETAMINOPHEN 500 MG TAB PO PRN (12:15)
[2021-10-15] MEDS: HYDRALAZINE HCL 25 MG TABLET PO SCH (21:40)
[2021-10-15] MEDS: levoFLOXacin 750 MG TAB PO SCH (21:40)
[2021-10-16 06:19] LABS: Hematocrit 27.5 % (36.0-45.0); MPV 7.3 fL (7.6-11.3); RBC Red Blood Cell Count 3.81 M/uL (3.86-4.86)
[2021-10-16 06:29] LABS: Potassium 3.2 mmol/L (3.5-5.1)
[2021-10-16] MEDS: lisinopriL 20 MG TAB PO SCH ×2 (07:17→08:00)
[2021-10-16] MEDS: MECLIZINE HCL 12.5 MG TAB PO SCH ×2 (07:58→13:36)
[2021-10-16] MEDS: SERTRALINE HCL 100 MG TAB PO SCH (07:58)
[2021-10-16] MEDS: METOPROLOL TAR 50 MG TAB PO SCH (07:58)
[2021-10-16] MEDS: ENOXAPARIN 40 MG/0.4 ML SQ SCH (07:58)
[2021-10-16] MEDS: AMLODIPINE 10 MG TAB PO SCH (07:59)
[2021-10-16] MEDS: levoFLOXacin 750 MG TAB PO SCH (07:59)
[2021-10-16] MEDS: FUROSEMIDE 40 MG/4 ML VIAL IV SCH (07:59)
[2021-10-16] MEDS: TENOFOV ALAFENAM PO SCH (07:59)
[2021-10-16] MEDS: EMTRICITABINE PO SCH (07:59)
[2021-10-16] MEDS: RALTEGRAVIR POTASSIUM 400 MG PO SCH (08:00)
[2021-10-16] MEDS ORDERED: POTASSIUM 25 MEQ EFFERV TAB PO ONE (09:00)
[2021-10-16] MEDS ORDERED: HYDRALAZINE HCL 25 MG TABLET PO SCH (09:00)
[2021-10-16 12:38] VITALS: O2SAT 99
[2021-10-16 13:51] VITALS: BP 145/68; TEMP 97
--- NOTE | 2021-10-20 16:30 | P.DS ---
Admission Date: 10/12/21 Discharge Date: 10/16/21 Disposition: DC HOME/HOME HEALTH CARE Discharge Condition: GOOD Reason for Admission: Chest pain, dizziness Consultations: Cardiology - Dr. Crane Nephrology - Dr. Miller Brief History of Present Illness: 66yo F, PMH: COPD, Diastolic CHF (HFpEF), HTN Presented to ED with dizziness, SOB. Workup in ED concerning for COPD and CHF Exacerbation Hospital Course: Problem List acute on chronic hypoxemic respiratory failure secondary to acute on chronic diastolic CHF (HFpEF) acute on chronic COPD exacerbation acute renal failure h/o afib, paroxysmal h/o CAD h/o HTN Patient was evaluated by Cardiology due to chest pain and dizziness. She had a positive stress test and was taking for cardiac catheterization, which was negative. She did not require any stents / other interventions. She was treated for mild CHF exacerbation with lasix. Her breathing, dizziness, and other symptoms improved. She was evaluated by physical therapy and recommended to only ambulate with a walker. She is at risk for falls, which she has been for a while now. Discussed possibility of detention facility for physical therapy, which she declined and preferred to be discharged home. She was deemed stable for discharge home with home health / PT Resume blood pressure medications as previously instructed. Her urine was concerning for UTI. Patient initially reported no symptoms, however after thinking about it some more, she did report having some dysuria. Urine culture only grew mixed antionette. She was empirically treated with levaquin, and will go home with prescription for 5 more days. follow up with PCP within 1-2 weeks. Vital Signs/Physical Exam: Temp Pulse Resp BP Pulse Ox 97.0 F 61 20 145/68 H 99 10/16/21 12:00 10/16/21 12:00 10/16/21 12:00 10/16/21 12:00 10/16/21 12:00 Physical Exam General: Alert, NAD HEENT: Mucous membr. moist/pink Respiratory: b/l wheeze, nonlabored respirations on 2L NC Cardiovascular: Regular rate/rhythm, mild b/l edema Gastrointestinal: soft, nontender, nondistended Integumentary: No rashes, No erythema, No cyanosis Laboratory Data at Discharge: WBC 5.6 K/uL (4.3-10.9) D 10/16/21 05:48 Hgb 8.5 g/dL (12.0-15.0) L 10/16/21 05:48 Hct 27.5 % (36.0-45.0) L 10/16/21 05:48 Plt Count 170 K/uL (152-406) 10/16/21 05:48 PT 12.0 SECONDS (9.5-12.5) 10/11/21 13:04 INR 1.09 10/11/21 13:04 Sodium 140 mmol/L (136-145) 10/16/21 05:48 Potassium Cancelled 10/16/21 15:15 BUN 15 mg/dL (7-18) 10/16/21 05:48 Creatinine 0.78 mg/dL (0.55-1.3) 10/16/21 05:48 Glucose 110 mg/dL (74-106) H 10/16/21 05:48 Phosphorus 4.7 mg/dL (2.5-4.9) 10/12/21 03:13 Magnesium 2.4 mg/dL (1.8-2.4) 10/15/21 06:01 Total Bilirubin 0.3 mg/dL (0.2-1.0) 10/13/21 03:23 AST 39 U/L (15-37) H 10/13/21 03:23 ALT 26 U/L (12-78) 10/13/21 03:23 Alkaline Phosphatase 85 U/L (45-117) 10/13/21 03:23 Home Medications: Raltegravir Potassium [Isentress] 1 tab PO BID 02/28/12 Sertraline [Zoloft*] 2 tab PO BID 09/15/12 Metoprolol Tartrate 100 mg PO BID #60 tablet 02/03/20 Emtricitabine/Tenofov Alafenam [Descovy 200-25 mg Tablet] 1 tab PO DAILY 03/05/21 Amlodipine Besylate 1 tab PO DAILY 03/30/21 Dexlansoprazole [Dexilant] 60 mg PO DAILY 03/30/21 Lorazepam [Ativan] 1 tab PO TID 06/29/21 Lisinopril [Zestril] 1 tab PO BID 08/28/21 Hydralazine HCl 50 mg PO BEDTIME 10/12/21 Bupropion HCl [Wellbutrin Xl] 1 tab PO DAILY 10/16/21 Clopidogrel Bisulfate [Plavix*] 1 tab PO DAILY 10/16/21 Famotidine 1 tab PO Q12H 10/16/21 Ferrous Sulfate 1 tab PO DAILY 10/16/21 Furosemide 1 tab PO Q24H 10/16/21 Meclizine HCl [Antivert*] 25 mg PO TID PRN 5 Days #15 tab 10/16/21 Trazodone [Desyrel*] 1 tab PO BEDTIME 10/16/21 levoFLOXacin [Levaquin*] 750 mg PO DAILY 5 Days #5 tab 10/16/21 New Medications: Meclizine HCl [Antivert*] 25 mg PO TID PRN 5 Days #15 tab PRN Reason: Dizziness levoFLOXacin [Levaquin*] 750 mg PO DAILY 5 Days #5 tab Activity: Fall precautions Followup: Lele Rahman DO, DO [Primary Care Provider] - (Call to [facility] appointment.) Time spent managing pt's care (in minutes): 45
== END 2021-10-16 14:02 | disposition home health service (06) | DRG 286 ==
LOC: ER 11:44 → 2ND 19:27 → OBSVTOIN 10-12 19:10
PROVIDERS: ADMIT Internal Medicine; ATTEND Internal Medicine
PROC: B2011ZZ Plain Radiography of Multiple Coronary Arteries using Low Osmolar Contrast (ICD-10-PCS; principal; 2021-10-13)
DX: I11.0 Hypertensive heart disease with heart failure (principal); I50.33 Acute on chronic diastolic (congestive) heart failure; J96.21 Acute and chronic respiratory failure with hypoxia; J44.1 Chronic obstructive pulmonary disease with (acute) exacerbation; B20 Human immunodeficiency virus [HIV] disease; N39.0 Urinary tract infection, site not specified; N17.9 Acute kidney failure, unspecified; I25.10 Atherosclerotic heart disease of native coronary artery without angina pectoris; E87.6 Hypokalemia; R94.39 Abnormal result of other cardiovascular function study; N14.1 Nephropathy induced by other drugs, medicaments and biological substances; T50.8X5A Adverse effect of diagnostic agents, initial encounter; W01.0XXA Fall on same level from slipping, tripping and stumbling without subsequent striking against object, initial encounter; Y92.230 Patient room in hospital as the place of occurrence of the external cause; R07.89 Other chest pain; F31.9 Bipolar disorder, unspecified; E78.5 Hyperlipidemia, unspecified; K21.9 Gastro-esophageal reflux disease without esophagitis; I48.0 Paroxysmal atrial fibrillation; Z87.891 Personal history of nicotine dependence; Z79.899 Other long term (current) drug therapy; Z20.822 Contact with and (suspected) exposure to COVID-19
CPT/HCPCS: 36415; 70450; 71045; 78452; 80048; 80053; 80076; 81003; 81015; 83735; 83880; 84100; 84145; 84484; 85025; 85027; 85610; 87086; 87088; 93005; 93017; 93454; 94760; 96374; 96375; 97116; 97161; 97530; 99285; A9500; C1760; C1893; G0269; G0378; J0360; J0583; J1644; J1650; J1940; J2250; J2270; J2405; J2785; J2930; J3010; J3480; J7040; J7050; J8597; U0003

== ENCOUNTER 2021-10-22 14:54 | Emergency (ER) | payer OTHER ==
--- OUTSIDE RECORDS SUMMARY | 2021-10-22 15:03 | XMS REPORT | Continuity of Care Document ---
:1955 Author Organization [facility] t Address [address] [place] [address] Care Team Providers Name Role Phone Francisco Rahman Primary Care Physician Ashely Attending Clinician Unavailable JENNY Attending Clinician Unavailable SELF Attending Clinician Unavailable Ronald DHILLON Attending Clinician [facility] Attending Clinician Unavailable Ap JENKINS Attending Clinician Doctor Unassigned, Name Attending Clinician Unavailable Yazmin JENKINS Attending Clinician Luisana Maharaj NP Attending Clinician Prabhu SANCHEZ Attending Clinician Unavailable Devin WIND TURBINE TECHNICIAN, R Attending Clinician Clark SANCHEZ Attending Clinician Unavailable Diana SANCHEZ Attending Clinician Unavailable Remigio JENKINS V. Attending Clinician HEMATPOUR Attending Clinician Unavailable DO SYL Attending Clinician Unavailable Kristen Rahman Admitting Clinician Unavailable Ashely Admitting Clinician Unavailable YAZMIN Admitting Clinician Unavailable DO SYL Admitting Clinician Unavailable Payers Payer Name Policy Type Policy Number Effective Date Expiration Date S gabino [facility] COMM[facility] PLAN [id number] 2012 [employer] 00:00:00 [employer] [id number] 2019 BEHAVIORAL 00:00:00 SOLUTIONS MEDICAID [place] [id number] 2020 00:00:00 Problems Condition Condition Condition Status Onset Resolution Last Treating Co mments Source Name Details Category Date Date Treatment Clinician Date Gastropare Gastropare Disease Active Overview : Methodi sis sis 4-[address] 00:00: [facility] 00 note l might be different from the original. Added automatic ally from request for surgery [id number] Dysphagia Dysphagia Disease Active Overview: Methodi 4-[address] 00:00: g of this [facility]osp[facility] 00 note l might be different from the original. Added automatic ally from request for surgery [id number] CCL / EPS Diagnosis Active 2020-10-15 Memoria PVI 3-30 17:07:00 l ABLATION CCL / 00:00: Marty W/ CARTO / EPS PVI 00 GA / T ABLATION W/ CARTO / GA / T Active 08/19/2020 [facility] Food Food Disease Active 2019-05 Methodi intoleranc [...] (BMI 2-19 ity of 30-39.9) 30-39.9) 00:00: [place] [facility] Anemia Anemia Disease Active 2014-05 Univers 0-03 ity of 00:00: [place] [facility] Hypovolemi Hypovolemi Disease Active 2014-05 U nivers a due to a due to 0-02 [facility] of hemorrhage hemorrhage 00:[place] [facility] Chest pain Chest pain Disease Active 2014-05 U nivers 0- ity of 00:00: [place] [facility] 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:00: [place] shoulder shoulder 00 Medica l arthroplas arthroplas Br anch ty ty Posttrauma Posttrauma Disease Active U nivers tic stress tic stress 09-27 it y of disorder disorder 00:00: [place] [facility] 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 00:00: [place] virus virus Medical (HIV) (HIV) Branch disease disease Bipolar 2 Bipolar 2 Disease Active Uni vers disorder disorder 11-18 ity of 00:00: [place] [facility] Chronic Chronic Disease Active Univers hepatitis hepatitis 11-18 ity of C C 00:00: [place] [facility] Hypertensi Hypertensi Disease Active U nivers on on 11-18 ity of 00:00: [place] [facility] Allergies, Adverse Reactions, Alerts Allergy Allergy Status Severity Reaction(s) Onset Inactive Treating Comm ents Source Name Type Date Date Clinician sulfamet DA Active [facility] N/V [facility] hoxazole 1-25 Clear 00:00: Garcia 00 [facility] trimetho DA Active SV [facility] prim 1-25 Clear 00:00: Garcia [facility] codeine DA Active SV N/V [facility] 1-25 Clear 00:00: Garcia [facility] Metoclop Propensi Active [facility] ramide ty [...] Date Stop Date Source Natural father Hypertension [facility] Natural father [facility] Natural father Diabetes [facility] Natural father Other - see comments [facility] Natural [facility] Natural mother Cancer [facility] Social History Social Habit Start Date Stop Date Quantity Comments Source History [facility] Alcohol Comment History of tobacco Smoker Method ist use Hospital History SDOH [facility] Alcohol Frequency Hospita l History SDOH [facility] Alcohol Std Drinks Hospit al History SDOH [facility] Alcohol Binge Hospital Exposure to Not sure University of SARS-CoV-2 (event) [facility] Alcohol intake 2021-07-14 2021-07-14 Ex-drinker [facility] 00:00:00 00:00:00 (finding) Tobacco use and 2020-10-31 2020-10-31 Smokeless tobacco [facility] exposure 00:00:00 00:00:00 non-user Cigarettes smoked 2020-09-05 2020-09-[address] current (pack per 00:00:00 00:00:00 Hospita l day) - Reported Cigarette 2020-09-05 2020-09-05 [facility] pack-years 00:00:00 00:00:00 Hospital Tobacco Comment 2015-02-14 2015-02-14 Smokes approx 1-2 Un iversity of 00:00:00 00:00:00 cigarettes per [place] [facility] day when she Branch smokes Sex Ass[birth year] At [birth year] [facility] 00:00:00 00:00:00 Smoking Status Start Date Stop Date Source Former smoker 2020-08-06 00:00:00 2020-08-06 00:00:00 [facility] Medications Ordered Filled Start Stop Current Ordering Indication Dosage Frequency Signature Comments Components Source Medication Medication Date Date Medication? Clinician (SIG) Name Name buPROPion Yes [id number] 150mg Take 1 U nivers XL 4-12 tablet by ity of (WELLBUTRIN 00:00: mouth [place] XL) 150 mg 00 daily. Medical 24 hr Branch tablet busPIRone Yes [id number] 30mg Take 1 Un matt 30 mg 4-12 tablet by ity of tablet 00:00: mouth 2 [place] 00 (two) Medical times Branch daily. SERTraline Yes [id number] 200mg Take 2 Univers 100 mg 4-12 tablets by ity of tablet 00:00: mouth [place] 00 daily. Medical Branch raltegravir Yes [id number] 400mg Take 1 Univers (ISENTRESS) 3-28 tablet by ity of 400 mg 00:00: mouth 2 [place] tablet 00 (two) Medical times Branch daily. LORazepam 1 Yes [id number] 1mg Take 1 Univers mg tablet 3-21 tablet by ity o f 00:00: mouth 3 [place] 00 (three) Medical times Branch daily as needed (anxiety). raltegravir Yes 400mg Q.5D Take 400 U T (Isentress) 2-22 mg by Health 400 MG 09:09: mouth 2 tablet 52 (two) times a day. LORazepam 1 2021- No [id number] 1mg Take 1 Univers mg tablet 2-21 [...] times a tablet day. buPROPion 2021- No [id number] 150mg Take 1 Univers XL -24 -12 tablet by ity of (WELLBUTRIN 00:00: [place] XL[place] 150 mg 00 :00 daily. Medical 24 hr Branch tablet busPIRone 2021- No [id number] 30mg Take 1 U nivers 30 mg 24 -12 tablet by ity of tablet 00:00: 00:00 mouth 2 [place] 00 :00 (two) Medical times Branch daily. SERTraline 2021- No [id number] 200mg Take 2 Univers 100 mg 24 -12 tablets by ity of tablet 00:00: 00:00 mouth [place] 00 :00 daily. Medical Branch emtricitabi Yes [id number] Take one Univers ne-tenofovi 1-20 po daily ity of r alafen 00:00: [place] (DESCOVY) 00 Medical tablet Branch raltegravir 2021- No [id number] 400mg Take 1 Univers (ISENTRESS) -12 03-28 tablet by it y of 400 mg 00:00: 00:00 mouth 2 [place] tablet 00 :00 (two) Medical times Branch daily. metoprolol Yes [id number] Take 1 [facility] tartrate 7-26 tablet Health (Lopressor) 00:00: (100 mg 100 MG 00 total) by tablet mouth 2 (two) times a day AND 0.5 tablets (50 mg total) every night. metoprolol Yes [id number] Take 1 [facility] tartrate 7-26 tablet Health [...] (affected area in groin) hydrALAZINE Yes 50mg Q.[id number] Take 50 mg Methodi (APRESOLINE 7-[id number] ) 50 MG 10:51: 3D (three) Hospita tablet 25 times a l day. busPIRone 0 Yes 20mg QD Take 20 mg Me thodi (BUSPAR) 10 7-[address] MG tablet 10:51: nightly. Hosp sroen 25 l acetaminoph 0 Yes 1000mg Q.5D [...] Hospita tablet 25 daily. l nystatin-tr Yes [id number] Apply to [facility] 11-25 area(s) 3 ity of cream 00:00: (three) [place] 00 times Medical daily. Branch budesonide- 2020- No 1{puff} QD Inhale 1 Methodi formoteroL 11-14 06-[address] (SYMBICORT) 14:37: 00:00 morning. H ospita 160-4.5 02 :00 l mcg/actuati on inhaler hydrALAZINE Yes [id number] 50mg Q.[id number] Take 1 UT (Apresoline 6-11 [id number] tablet (50 Health ) 50 MG 00:00: 3D mg total) tablet 00 by mouth 3 (three) times a day. hydrALAZINE Yes [id number] 50mg Q.[id number] Take 1 [facility] (Apresoline 6-11 [id number] tablet (50 Health ) 50 MG 00:00: [...] % 00:00: ointment 00 nystatin 2020- No [id number] Q.25D Take 5 mL Methodi (MYCOSTATIN 10-06 [...] ia 4-10 (Same as: l 14:00: Norvasc) [place] 00 emtricitabi No Notes: Caesar lisa ne 200 MG / 4-10 (Same as: l tenofovir 14:00: Descovy) Herm ariel alafenamide 00 Non-formul 25 MG Oral nancy Tablet [Descovy] pantoprazol No Notes: Caesar lisa e 4-10 Tablet l 14:00: should not [place] 00 be chewed or crushed. (Same as: Protonix) Amiodarone No Notes: Memor ia 4-10 (Same as: l 14:00: Cordarone) Amlodipine No Notes: Memor ia 4-10 (Same as: l 14:00: Norvasc) [place] 00 emtricitabi No Notes: Caesar lisa ne [...] e 4-10 Tablet l 14:00: should not [place] 00 be chewed or crushed. (Same as: [...] e 4-10 Tablet l 14:00: should not [place] 00 be chewed or crushed. (Same as: Protonix) Amiodarone No Notes: Memor ia 4-10 (Same as: l 14:00: Cordarone) Marty 00 Amlodipine No Notes: Memor ia 4-10 (Same as: l 14:00: Norvasc) [place] 00 emtricitabi No Notes: Caesar lisa ne 200 MG / 4-10 (Same as: l tenofovir 14:00: Descovy) Herm ariel alafenamide 00 Non-formul 25 MG Oral nancy Tablet [Descovy] Sertraline No Notes: Memor ia 4-10 (Same as: l 14:00: Zoloft) [place] 00 pantoprazol No Notes: Caesar lisa e 4-10 Tablet l 14:00: should not [place] 00 be chewed or crushed. (Same as: Protonix) Amiodarone No Notes: Memor ia 4-10 (Same as: l 14:00: Cordarone) Marty Amlodipine No Notes: Memor ia 4-10 (Same as: l 14:00: Norvasc) [place] emtricitabi No Notes: Caesar lisa ne 200 MG / 4-10 (Same as: l tenofovir 14:00: Descovy) Herm ariel alafenamide 00 Non-formul 25 MG Oral nancy Tablet [Descovy] Sertraline No Notes: Memor ia 4-10 (Same as: l 14:00: Zoloft) [place] 00 pantoprazol No Notes: Caesar lisa e 4-10 Tablet l 14:00: should not [place] 00 be chewed or crushed. (Same as: Protonix) Amiodarone No Notes: Memor ia 4-10 (Same as: l 14:00: Cordarone) [place] 00 Amlodipine No Notes: Memor ia 4-10 (Same as: l 14:00: Norvasc) [place] 00 emtricitabi No Notes: Caesar lisa ne 200 MG / 4-10 (Same as: l tenofovir 14:00: Descovy) Herm ariel alafenamide 00 Non-formul 25 MG Oral nancy Tablet [Descovy] Sertraline No Notes: Memor ia 4-10 (Same as: l 14:00: Zoloft) [place] 00 pantoprazol No Notes: Caesar lisa e [...] M emoria 4-10 interfere l 02:00: w/enteral [place] feeds - Take 1 hr before or [...] 0.9% 4-10 (Same as: l 02:00: BD [place] Posiflush) Eliquis No Notes: Memoria 4-10 Same [...] Memoria 4-10 Same as: l 02:00: Eliquis [place] 00 Hydralazine No Notes: Caesar lisa Hydrochlori 4-10 (Same as: l de 50 MG 02:00: Apresoline Her mitchell Oral Tablet 00 ) May interfere w/enteral feedings Take With Food Sucralfate No Notes: May M emoria 4-10 interfere l 02:00: w/enteral [place] 00 feeds - Take 1 hr before or 2 hr after antacids, dairy pdt, meals & minerals - On empty stomach. For patients unable to swallow tablet, dissolve in 10mL - 30mL of water or juice and stir before giving. (Same As: Carafate) [place] No Notes: Memoria Flush 0.9% 4-10 (Same as: l 02:00: BD [place] 00 Posiflush) Eliquis No Notes: Memoria 4-10 Same as: l 02:00: Eliquis [place] Hydralazine No Notes: Caesar lisa Hydrochlori 4-10 (Same as: l de 50 MG 02:00: Apresoline Her mitchell Oral Tablet 00 ) May interfere w/enteral feedings Take With Food Sucralfate No Notes: May M emoria 4-10 interfere l 02:00: w/enteral [place] 00 feeds - Take 1 hr before or 2 hr after antacids, dairy pdt, meals & minerals - On empty stomach. For patients unable to swallow tablet, dissolve in 10mL - 30mL of water or juice and stir before giving. (Same As: Carafate) [place] No Notes: Memoria Flush 0.9% 4-10 (Same as: l 02:00: BD [place] 00 Posiflush) Eliquis No Notes: Memoria 4-10 Same as: l 02:00: Eliquis [place] Hydralazine No Notes: Caesar lisa Hydrochlori 4-10 (Same as: l de 50 MG 02:00: Apresoline Her mitchell Oral Tablet 00 ) May interfere w/enteral feedings Take With Food Sucralfate No Notes: May M emoria 4-10 interfere l 02:00: w/enteral [place] 00 feeds - Take 1 hr before or 2 hr after antacids, dairy pdt, meals & minerals - On empty stomach. For patients unable to swallow tablet, dissolve in 10mL - 30mL of water or juice and stir before giving. (Same As: Carafate) [place] No Notes: Memoria Flush 0.9% 4-10 (Same as: l 02:00: BD [place] 00 Posiflush) Eliquis No Notes: Memoria 4-10 Same as: l 02:00: Eliquis [place] 00 Hydralazine No Notes: Caesar lisa Hydrochlori [...] not exceed l #3 00:12: 4gm/day of [place] 00 acetaminop hen. (Same as: Tylenol with Codeine # 3) acetaminoph No Notes: Do M emoria en-codeine 4-10 not exceed l #3 00:12: 4gm/day of Marty acetaminop hen. (Same as: Tylenol with Codeine # 3) acetaminoph No Notes: Do M emoria en-codeine 4-10 not exceed l #3 00:12: 4gm/day of [place] acetaminop hen. (Same as: Tylenol with Codeine # 3) acetaminoph No Notes: Do M emoria en-codeine 4-10 not exceed l #3 00:12: 4gm/day of [place] acetaminop hen. (Same as: Tylenol with Codeine [...] oria 4-09 tab, l 22:00: Route: PO, [place] Drug form: TAB, BID, Dosing Weight 97.273, kg, Start date: 08/29/20 17:00:00 CDT, Duration: 30 day, Stop date: 09/28/20 9:00:00 CDT metoprolol 2020-0 No 100 mg, 1 Me moria tartrate - tab, l 22:00: Route: PO, [place] 00 Drug form: TAB, BID, Dosing Weight [...] tartrate 4-09 tab, l 22:00: Route: PO, [place] 00 Drug form: TAB, BID, Dosing Weight [...] oria 4-09 tab, l 22:00: Route: PO, [place] 00 Drug form: TAB, BID, Dosing Weight [...] tartrate 4-09 tab, l 22:00: Route: PO, [place] Drug form: TAB, BID, Dosing Weight 97.273, [...] oria 4-09 tab, l 22:00: Route: PO, [place] 00 Drug form: TAB, BID, Dosing Weight [...] oria -09 tab, l 22:00: Route: PO, [place] 00 Drug form: TAB, BID, Dosing Weight 97.273, kg, Start date: 08/29/20 17:00:00 CDT, Duration: 30 day, Stop date: 09/28/20 9:00:00 CDT metoprolol 1-0 No 100 mg, 1 Me moria tartrate 4-09 tab, l 22:00: Route: PO, [place] 00 Drug form: TAB, BID, Dosing Weight [...] Notes: Memoria 4-09 (Same l 17:07: as:MORPhin [place] 00 e Sulfate) Morphine No Notes: Memoria 4-09 (Same l 17:07: as:MORPhin [place] 00 e Sulfate) Morphine No Notes: Memoria 4-09 (Same l 17:07: as:MORPhin [place] 00 e Sulfate) Morphine No Notes: Memoria 4-09 (Same l 17:07: as:MORPhin [place] 00 e Sulfate) Morphine No Notes: Memoria 4-09 (Same l 17:07: as:MORPhin [place] 00 e Sulfate) Morphine No Notes: Memoria 4-09 (Same l 17:07: as:MORPhin [place] 00 e Sulfate) Morphine No Notes: Memoria 4-09 (Same l 17:07: as:MORPhin [place] 00 e Sulfate) buPROPion No 150 mg, [...] 08-29 Drug form: l 15:40: INJ, ONCE, [place] 00 Stop date: 08/29/20 10:40:00 CDT neostigmine [...] 30 tab, 0 coated Refill(s), tablet Pharmacy: [facility] 149, 162.56, cm, 08/29/20 5:30:00 CDT, Height, 97.273, kg, 08/29/20 5:30:00 CDT, Weight pantoprazol 2021-0 Yes 40 mg = 1 M emoria e 40 mg 4-09 tab, PO, l oral 15:27: Daily, # [place] enteric 00 30 tab, 0 coated Refill(s), tablet Pharmacy: [facility] 149, 162.56, cm, 08/29/20 5:30:00 CDT, Height, 97.273, kg, 08/29/20 5:30:00 CDT, Weight pantoprazol 2021-0 Yes 40 mg = 1 M emoria e 40 mg 4-09 tab, PO, l oral 15:27: Daily, # Marty enteric 00 30 tab, 0 coated Refill(s), tablet Pharmacy: [facility] 149, 162.56, cm, 08/29/20 5:30:00 CDT, Height, 97.273, kg, 08/29/20 5:30:00 CDT, Weight pantoprazol 1-0 Yes 40 mg = 1 M emoria e 40 mg 4-09 tab, PO, l oral 15:27: Daily, # [place] enteric 00 30 tab, 0 coated Refill(s), tablet Pharmacy: [facility] 149, 162.56, cm, 08/29/20 5:30:00 CDT, Height, 97.273, kg, 08/29/20 5:30:00 CDT, Weight pantoprazol 2021-0 Yes 40 mg = 1 M emoria e 40 mg 4-09 tab, PO, l oral 15:27: Daily, # [place] enteric 00 30 tab, 0 coated Refill(s), tablet Pharmacy: [facility] 149, 162.56, cm, 08/29/20 5:30:00 CDT, Height, 97.273, kg, 08/29/20 5:30:00 CDT, Weight pantoprazol 2021-0 Yes 40 mg = 1 M emoria e 40 mg 4-09 tab, PO, l oral 15:27: Daily, # [place] enteric 00 30 tab, 0 coated Refill(s), tablet [facility]: [facility], 162.56, cm, 08/29/20 5:30:00 CDT, Height, 97.273, kg, 08/29/20 5:30:00 CDT, Weight pantoprazol 2020-0 Yes 40 mg = 1 M emoria e 40 mg 4-09 tab, PO, l oral 15:27: Daily, # [place] enteric 00 30 tab, 0 coated Refill(s), tablet Pharmacy: [facility] 149, 162.56, cm, 08/29/20 5:30:00 [...] Skylar nn 00 tab, 0 Refill(s), Pharmacy: [facility] 149, 162.56, cm, 08/29/20 5:30:00 CDT, Height, 97.273, kg, 08/29/20 5:30:00 CDT, Weight pantoprazol 2020-0 No 40 mg = 1 M emoria e 40 mg 4-09 tab, PO, l oral 15:26: Daily, # [place] enteric 00 30 tab, 0 coated Refill(s) tablet sucralfate 2020-0 Yes 1 gm = 1 Mem oria 1 g oral 4-09 tab, PO, l tablet 15:26: Q12H, # 28 Skylar nn 00 tab, 0 Refill(s), Pharmacy: [place] [id number], 162.56, cm, 08/29/20 5:30:00 CDT, Height, 97.273, [...] Skylar nn 00 tab, 0 Refill(s), Pharmacy: [facility] 149, 162.56, cm, 08/29/20 5:30:00 [...] Skylar nn 00 tab, 0 Refill(s), Pharmacy: [facility] 149, 162.56, cm, 08/29/20 5:30:00 CDT, Height, 97.273, kg, 08/29/20 5:30:00 CDT, Weight pantoprazol 2020-0 No 40 mg = 1 M emoria e 40 mg 4-09 tab, PO, l oral 15:26: Daily, # [place] enteric 00 30 tab, 0 coated Refill(s) tablet sucralfate 2020-0 Yes 1 gm = 1 Mem oria 1 g oral 4-09 tab, PO, l tablet 15:26: Q12H, # 28 Skylar nn 00 tab, 0 Refill(s), Pharmacy: [place] [id number], 162.56, cm, 08/29/20 5:30:00 CDT, Height, 97.273, kg, 08/29/20 5:30:00 CDT, Weight pantoprazol 2020-0 No 40 mg = 1 M emoria e 40 mg 4-09 tab, PO, l oral 15:26: Daily, # [place] enteric 00 30 tab, 0 coated Refill(s) tablet sucralfate 2020-0 Yes 1 gm = 1 Mem oria 1 g oral 4-09 tab, PO, l tablet 15:26: Q12H, # 28 Skylar nn 00 tab, 0 Refill(s), Pharmacy: [facility] 149, 162.56, cm, 08/29/20 5:30:00 [...] Skylar nn 00 tab, 0 Refill(s), Pharmacy: [facility] 149, 162.56, cm, 08/29/20 5:30:00 CDT, Height, 97.273, kg, 08/29/20 5:30:00 CDT, Weight [place] No Notes: Memoria Flush 0.9% 4-09 (Same as: l 15:25: BD [place] 00 Posiflush) Lorazepam No Notes: Memori a 4-09 (Same as: l 15:25: Ativan) [place] No Notes: Memoria Flush 0.9% 4-09 (Same as: l 15:25: BD [place] 00 Posiflush) Lorazepam No Notes: Memori a 4-09 (Same as: l 15:25: Ativan) [place] No Notes: Memoria Flush 0.9% 4-09 (Same as: l 15:25: BD [place] 00 Posiflush) [place] No Notes: Memoria Flush 0.9% 4-09 (Same as: l 15:25: BD [place] 00 Posiflush) Lorazepam No Notes: Memori a 4-09 (Same as: l 15:25: Ativan) [place] 00 Lorazepam No Notes: Memori a 4-09 (Same as: l 15:25: Ativan) [place] No Notes: Memoria Flush 0.9% 4-09 (Same as: l 15:25: BD [place] 00 Posiflush) Lorazepam No Notes: Memori a [...] Drug form: l mg + 15:00: INJ, [place] 00 Dosing Weight 97.3, kg, Start date: [...] Memori a 08-29 Route: l 14:01: IVP, [place] 00 Q5Min, Dosing Weight 97.273, kg, PRN Elevated BP, Start date: 08/29/20 9:01:00 CDT, Duration: 5 doses or times, Stop date: Limited # of times Acetaminoph 2020-0 No 1,000 mg, M emoria en 08-29 Route: PO, l 14:01: Drug form: [place] 00 TAB, ONCE, Dosing Weight 97.273, kg, [...] oria ne 08-29 Route: l 14:01: IVP, [place] 00 Q5Min, Dosing Weight 97.273, kg, PRN [...] Memori a 08-29 Route: l 14:01: IVP, [place] 00 Q5Min, Dosing Weight 97.273, kg, PRN Elevated BP, Start date: 08/29/20 9:01:00 CDT, Duration: 5 doses or times, Stop date: Limited # of times Acetaminoph 1-0 No 1,000 mg, M emoria en 08-29 Route: PO, l 14:01: Drug form: [place] 00 TAB, ONCE, Dosing Weight 97.273, kg, [...] oria ne 08-29 Route: l 14:01: IVP, [place] 00 Q5Min, Dosing Weight 97.273, kg, PRN [...] ia 08-29 Route: l 14:01: IVP, ONCE, [place] 00 Dosing Weight 97.273, kg, PRN Nausea [...] ia 08-29 Route: l 14:01: IVP, ONCE, [place] 00 Dosing Weight 97.273, kg, PRN Nausea [...] oria ne 08-29 Route: l 14:01: IVP, [place] 00 Q5Min, Dosing Weight 97.273, kg, PRN [...] oria ne 08-29 Route: l 14:01: IVP, [place] 00 Q5Min, Dosing Weight 97.273, kg, PRN [...] Memori a 4- Route: l 14:01: IVP, [place] 00 Q2MIN, Dosing Weight 97.273, kg, PRN [...] ia 4- Route: l 14:01: IVP, ONCE, [place] 00 Dosing Weight 97.273, kg, PRN Nausea & Vomiting, Start date: 08/29/20 9:01:00 CDT Naloxone 2021-0 No 0.4 mg, Memori a 4- Route: l 14:01: IVP, [place] 00 Q2MIN, Dosing Weight 97.273, kg, PRN [...] 08-29 Route: PO, l 14:01: Drug form: [place] 00 TAB, ONCE, Dosing Weight 97.273, kg, [...] Memori a 08-29 Route: l 14:01: IVP, [place] 00 Q2MIN, Dosing Weight 97.273, kg, PRN Narcotic Reversal, Start date: 08/29/20 9:01:00 CDT, Duration: 8 doses or times, Stop date: Limited # of times Ondansetron 1-0 No 4 mg, Memor ia 08-29 Route: l 14:01: IVP, ONCE, [place] 00 Dosing Weight 97.273, kg, PRN Nausea & Vomiting, Start date: 08/29/20 9:01:00 CDT Labetalol 1-0 No 10 mg, Memori a 08-29 Route: l 14:01: IVP, [place] 00 Q5Min, Dosing Weight 97.273, kg, PRN Elevated BP, Start date: 08/29/20 9:01:00 CDT, Duration: 5 doses or times, Stop date: Limited # of times Acetaminoph 2020-0 No 1,000 mg, M emoria en 08-29 Route: PO, l 14:01: Drug form: [place] 00 TAB, ONCE, Dosing Weight 97.273, kg, [...] lisa 08-29 Route: l 14:01: IVP, PRN, [place] 00 Dosing Weight 97.273, kg, PRN Benzodiaze [...] Drug form: l 10 13:15: INJ, Start [place] microgram 00 date: 08/29/20 8:15:00 CDT, Stop date: 08/29/20 9:15:00 CDT norepinephr 2020-0 No Route: IV, Memoria ine (ANES) 08-29 Drug form: l 10 13:15: INJ, Start Marty microgram date: 08/29/20 8:15:00 CDT, Stop date: 08/29/20 9:15:00 CDT norepinephr 2020-0 No Route: IV, Memoria ine (ANES) 08-29 Drug form: l 10 13:15: INJ, Start [place] microgram date: 08/29/20 8:15:00 CDT, Stop date: 08/29/20 9:15:00 CDT norepinephr 2020-0 No Route: IV, Memoria ine (ANES) 08-29 Drug form: l 10 13:15: INJ, Start Marty microgram date: 08/29/20 8:15:00 CDT, Stop date: 08/29/20 9:15:00 CDT norepinephr 2020-0 No Route: IV, Memoria ine (ANES) 08-29 Drug form: l 10 13:15: INJ, Start [place] microgram date: 08/29/20 8:15:00 CDT, Stop date: 08/29/20 9:15:00 CDT norepinephr 2020-0 No Route: IV, Memoria ine (ANES) 08-29 Drug form: l 10 13:15: INJ, Start Marty microgram 00 date: 08/29/20 8:15:00 CDT, Stop date: 08/29/20 9:15:00 CDT Sodium 2020-0 No Route: IV, Memor ia Chloride 4-09 Total l 0.9% IV 12:30: Volume: [place] (ANES) 1000 00 1,000, mL Start date: 08/29/20 7:30:00 CDT, Stop date: 08/29/20 8:30:00 CDT Sodium 1-0 No Route: IV, Memor ia Chloride 4-09 Total l 0.9% IV 12:30: Volume: [place] (ANES) 1000 00 1,000, mL Start date: 08/29/20 7:30:00 CDT, Stop date: 08/29/20 8:30:00 CDT Sodium 2021-0 No Route: IV, Memor ia Chloride 4-09 Total l 0.9% IV 12:30: Volume: [place] (ANES) 1000 00 1,000, mL Start date: [...] 4-09 Total l 0.9% IV 12:30: Volume: [place] (ANES) 1000 00 1,000, mL Start date: [...] PO, l Hydrochlori 11:42: Q24H, # 30 [place] de 150 MG 00 tab, 0 Extended Refill(s) Release Tablet 24 HR Yes 150 mg = 1 Memori a Bupropion -09 tab, PO, l Hydrochlori 11:42: Q24H, # 30 [place] de 150 MG 00 tab, 0 Extended [...] PO, l Hydrochlori 11:42: Q24H, # 30 [place] de 150 MG 00 tab, 0 Extended Refill(s) Release Tablet 24 HR 2020-0 Yes 150 mg = 1 Memori a Bupropion - tab, PO, l Hydrochlori 11:42: Q24H, # 30 [place] de 150 MG 00 tab, 0 Extended Refill(s) Release Tablet 24 HR 2020-0 Yes 150 mg = 1 Memori a Bupropion - tab, PO, l Hydrochlori 11:42: Q24H, # 30 [place] de 150 MG 00 tab, 0 Extended Refill(s) Release Tablet apixaban 5 2020-0 Yes 5 mg, PO, Me moria MG Oral 4 Q12H, tab, l Tablet 11:41: 0 [place] [Eliquis] 00 Refill(s), For Atrial Fibrilatio n apixaban 5 2020-0 Yes 5 mg, PO, Me moria MG Oral 08-29 Q12H, tab, l Tablet 11:41: 0 [place] [Eliquis] 00 Refill(s), For Atrial Fibrilatio n apixaban 5 2020-0 Yes 5 mg, PO, Me moria MG Oral 08-29 Q12H, tab, l Tablet 11:41: 0 Marty [Eliquis] 00 Refill(s), For Atrial Fibrilatio n apixaban 5 2020-0 Yes 5 mg, PO, Me moria MG Oral 4- Q12H, tab, l Tablet 11:41: 0 [place] [Eliquis] 00 Refill(s), For Atrial Fibrilatio n [...] tab, PO, l tablet 11:38: Daily, # [place] 00 90 tab, 3 Refill(s) AMIODarone 2020-0 Yes 200 mg = 1 M emoria 200 mg oral 4-09 tab, PO, l tablet 11:38: Daily, # [place] 00 90 tab, 3 Refill(s) AMIODarone 2020-0 Yes 200 mg = 1 M emoria 200 mg oral 4-09 tab, PO, l tablet 11:38: Daily, # Marty 00 90 tab, 3 Refill(s) AMIODarone 2020-0 Yes 200 mg = 1 M emoria 200 mg oral 4-09 tab, PO, l tablet 11:38: Daily, # [place] 00 90 tab, 3 Refill(s) AMIODarone 2020-0 Yes 200 mg = 1 M emoria 200 mg oral 4-09 tab, PO, l tablet 11:38: Daily, # [place] 00 90 tab, 3 Refill(s) AMIODarone 2020-0 [...] it y of mg tablet 08:18: (two) [place] 30 times Medical daily. Branch amiodarone Yes [...] Univers 90 4-14 ity of mcg/actuati 00:00: [place] on inhaler 00 Medical Branch albuterol Yes [...] Immunizations Ordered Filled Immunization Date Status Comments [facility] e Immunization Name Name PFIZER COVID-19 2020-07-23 Completed [facility] MRNA VACCINATION 00:00:00 [facility] PFIZER COVID-19 2020-07-02 Completed [facility] MRNA VACCINATION 00:00:00 [facility] Influenza Virus 2017-03-08 Completed Universit y of Vaccine 00:00:00 [facility] Influenza Virus 2014-01-30 Completed Universit y of Vaccine (3+ yrs) 00:00:00 [facility] dical Branch Pneumococcal 13 2014-01-30 Completed Universit y of Conjugate, PCV13 00:00:00 [facility] dical (Prevnar 13) Branch Pneumococcal 2012-02-16 Completed University o f Polysaccharide, 00:00:00 [facility] PPSV23 (PNEUMOVAX) Branch Influenza Virus 2012-02-16 Completed Universit y of Vaccine 00:00:00 [facility] PPD (TB) 2012-02-16 Completed University of 00:00:00 [facility] Hep B, Adol or Pedi 2011-09-01 Completed Unive rsity of Dosage 00:00:00 [facility] Hep B, Adol or Pedi 2011-03-17 Completed Unive rsity of Dosage 00:00:00 [facility] Influenza Virus 2011-02-10 Completed Universit y of Vaccine 00:00:00 [facility] Hep B, Adol or Pedi 2011-02-10 Completed Unive rsity of Dosage 00:00:00 [facility] PPD (TB) 2010-11-18 Completed University of 00:00:00 [facility] TDAP (ADACEL) 2010-11-18 Completed University of VACCINE 00:00:00 [facility] HEPATITIS A 2004-03-02 Completed University of 00:00:00 [facility] HEPATITIS A 2003-08-01 Completed University of 00:00:00 [facility] Pneumococcal 2001-10-04 Completed University o f Polysaccharide, 00:00:00 [facility] ical PPSV23 (PNEUMOVAX) Branch PPD () 2001-10-04 Completed University of 00:00:00 [facility] Vital Signs Vital Name Observation Time [...] h BMI 2021-07-14 15:18:00 35.87 kg/m2 [facility] Systolic blood 2021-08-21 13:13:00 191 mm[Hg] Univer sity of pressure [facility] Diastolic blood 2021-08-21 13:13:00 99 mm[Hg] Unive rsity of pressure [facility] Heart rate 2021-08-21 13:13:00 52 /min [facility] Body temperature 2021-08-21 13:11:[address] [facility] 2021-08-21 13:11:00 16 /min [facility] Body height 2021-08-21 13:11:00 162.6 cm [facility] Body weight 2021-08-21 13:11:00 93.759 kg [facility] BMI 2021-08-21 13:11:00 35.48 kg/m2 [facility] Oxygen saturation in 2021-08-21 13:11:00 95 /min University Arterial blood by [facility] Pulse oximetry Branch Systolic blood 2020-12-08 15:48:00 125 mm[Hg] Method [facility] pressure Diastolic blood 2020-12-08 15:48:00 76 mm[Hg] [facility] pressure Heart rate 2020-12-08 15:48:00 64 /min [facility] Body temperature 2020-12-08 15:48:00 36.61 Amina [facility] Respiratory rate 2020-12-08 15:48:00 17 /min [facility] Body height 2020-12-08 15:48:00 162.6 cm [facility] Body weight 2020-12-08 15:48:00 98.884 kg [facility] BMI 2020-12-08 15:48:00 37.42 kg/m2 [facility] Oxygen saturation in 2020-12-08 15:48:00 97 /min [facility] Arterial blood by Pulse oximetry Respitory Rate 2020-08-30 13:00:00 Memori al Marty Systolic (mm Hg) 2020-08-30 13:00:00 Caesar rial [place] Diastolic (mm Hg) 2020-08-30 13:00:00 Mem orial [place] Systolic (mm Hg) 2020-08-30 11:00:00 Caesar rial [place] Diastolic (mm Hg) 2020-08-30 11:00:00 Mem orial Marty Temperature Oral (F) 2020-08-30 11:00:00 98.4 F [facility] Respitory Rate 2020-08-30 11:00:00 Memori al [place] Respitory Rate 2020-08-30 10:00:00 Memori al Marty Systolic (mm Hg) 2020-08-30 10:00:00 Caesar rial [place] Diastolic (mm Hg) 2020-08-30 10:00:00 Mem orial [place] Temperature Oral (F) 2020-08-30 00:00:00 96.9 F [facility] Temperature Oral (F) 2020-08-29 11:26:00 97.6 F [facility] Height 2020-08-29 10:30:00 162.56 cm [facility] Weight 2020-08-29 10:30:00 [facility] BMI Calculated 2020-08-29 10:30:00 Darien Hammond Procedures Procedure Date / Time Performing Clinician Source Performed ECG 12-LEAD 2021-07-14 15:14:00 Elan Lira [facility] [id number] 2021-06-17 00:00:00 RIKY [facility] CONSENT/REFUSAL FOR 2021-06-15 16:11:59 Doctor Unassigned[facility] DIAGNOSIS AND TREATMENT [place] [facility] ASSIGNMENT OF BENEFITS 2021-06-15 16:11:40 Doctor Unassigned, [facility] [place] [facility] GASTROINTESTINAL PANEL 2020-12-08 22:21:00 Yazmin [facility] XR ABDOMEN 1 VW 2020-12-08 18:06:32 Eliseo Glaser spital OR [place] < 1 HOUR 2020-09-05 22:39:00 Eliseo Glaser spital SURGICAL PATHOLOGY REQUEST 2020-09-05 21:54:00 Eliseo Glaser [facility] XR CHEST 1 VW PORTABLE 2020-09-05 19:55:[address] [facility] DISCHARGE PATIENT 2020-09-05 17:27:55 Lucas Harris [facility] [place] AN ELECTIVE 2020-09-05 16:47:23 Kirit Flood [facility] ENDOTRACHEAL AIRWAY EGD, INTRAOPERATIVE 2020-09-05 16:27:00 [facility] 2020-09-05 15:04:00 Sarai Maharaj [facility] TIME (PTT) M. PROTHROMBIN TIME WITH INR 2020-09-05 15:04:00 Mindy Maharaj [facility] MChelsie Plan of Care Planned Activity Planned Date Details Comments Source Future Scheduled 2021-08-26 Screening for [facility] Test 13:02:23 malignant neoplasm of cervix (procedure) [code = 425448428] Future Scheduled 2021-08-26 BREAST CANCER [facility] Test 13:02:23 SCREENING [code = BREAST CANCER SCREENING] Future Scheduled 2021-08-26 COLONOSCOPY SCREENING [facility] Test 13:02:23 [code = COLONOSCOPY SCREENING] Future Scheduled 2021-08-26 [facility] Test 13:02:23 malignant neoplasm of lung (procedure) [code = 789756769] Future Scheduled 2021-08-26 SHINGLES VACCINES (#1) M [facility] Test 13:02:23 [code = SHINGLES VACCINES (#1)] Future Scheduled 2021-08-26 COVID-19 VACCINE (3 - Me [facility] Test 13:02:23 Pfizer risk 4-dose series) [code = COVID-19 VACCINE (3 - Pfizer risk 4-dose series)] Future Scheduled 2021-08-26 65+ [facility] 13:02:23 VACCINE (4 of 4 - PPSV23) [code = 65+ PNEUMOCOCCAL VACCINE (4 of 4 - PPSV23)] Future Scheduled 2021-08-26 INFLUENZA VACCINE Method [facility] Test 13:02:23 [code = INFLUENZA VACCINE] Encounters Start End Encounter Admission Attending Care Care Encounter Source Date/Time Date/Time Type Type Clinicians Facility Department ID 2021-08-03 Inpatient Ashely, EDUARDOCL OUTD [id number] [facility] 11:30:00 Mike [id number] [facility] 2021-07-14 Outpatient [facility] [id number] [place] 09:33:51 [facility] 2021-06-16 Inpatient RAUL Lund, EDUARDOCL OUTD [id number] [facility] 08:30:00 Mike [id number] [facility] 2021-06-15 Inpatient RAUL Lund, EDUARDOCL OUTD [id number] [facility] 10:30:00 Mike [id number] [facility] 2021-09-07 2021-09-07 Outpatient Marika KOEHLER [facility] [id number] Univers 08:00:00 08:00:00 EMERITA rodas [facility] 2021-08-21 2021-08-21 Chronic Manager Santiago Cardenas 1.2.840.1 [id number] Univers 10:45:00 10:45:00 Visit [facility] 58391.1.1 ity of 3.104.2.7 [place] .3.838143 Medica l .8 Branch 2021-08-21 2021-08-21 Office [place], 1.2.840.0 [id number] Univers 08:30:00 09:00:00 Visit Santiago 93453.1.1 ity of 3.104.2.7 [place] .3.142914 Medica l .8 Branch 2021-08-21 2021-08-21 Travel 1.2.840.1 1.2.264.561 [id number] Univers 00:00:00 00:00:00 05365.1.1 350.1.13.10 ity of 3.104.2.7 4.[place].7.3.698 [place] .3.751693 084.8 Medica l .8 [place] 2021-08-14 2021-08-14 Telephone East, 1.2.840.8 [id number] Univers 00:00:00 00:00:00 Santiago 66005.1.1 ity of 3.104.2.7 [place] .3.813856 Medica l .8 [place] 2021-08-13 2021-08-13 Telephone East, 1.2.840.0 [id number] Univers 00:00:00 00:00:00 Santiago 38825.1.1 ity of 3.104.2.7 [place] .3.084864 Medica l .8 [place] 2021-08-05 2021-08-05 Outpatient WINTER Leal HCACL [id number] [facility] 05:24:00 05:24:00 Mike 31 [facility] 2021-08-05 2021-08-05 Outpatient RAUL Lund, HCACL OUTD [id number] [facility] 05:24:00 05:24:00 Mike [id number] [facility] 2021-07-14 2021-07-14 Office KIMBERLEY Lira 6400 1.2.840.114 [id number] [place] 08:45:00 09:34:01 Visit Elan ROMERO 350.1.13.58 Health 9.2.7.2.686 [id number] 1 2021-07-09 2021-07-09 Telephone Ap, KIMBERLEY 6400 1.2.840.114 [id number] [place] 00:00:00 00:00:[address] 350.1.13.58 [facility] 9.2.7.2.686 [id number] 1 2021-06-17 2021-06-17 Inpatient RAUL Lund, HCACL INTE.02 [id number] [facility] 10:56:00 14:36:00 Mike [id number] [facility] 2021-06-17 2021-06-17 Inpatient RAUL Lund, HCACL INTE.02 [id number] [facility] 10:56:00 14:36:00 Mike 47 [facility] 2021-06-15 2021-06-15 Orders Doctor 1.2.840.5 [id number] Univers 00:00:00 00:00:00 Only Unassigned, 26067.1.1 ity of [place] 3.104.2.7 [place] .3.666824 Medica l .8 Branch 2021-06-15 2021-06-15 Travel 1.2.840.1 1.2.073.241 [id number] Univers 00:00:00 00:00:00 00856.1.1 350.1.13.10 ity of 3.104.2.7 4.2.7.3.698 [place] .3.630449 084.8 Medica l .8 Branch 2021-06-11 2021-06-11 Refill East, 1.2.840.2 [id number] Univers 00:00:00 00:00:00 Santiago 56237.1.1 ity of 3.104.2.7 [place] .3.523715 Medica l .8 Branch 2021-04-28 2021-04-28 Telephone Yazmin, 1.2.840.8 [id number] Methodi 00:00:00 00:00:[address] 3.430.2.7 Hospit a .3.191552 l .8 2021-03-31 2021-03-31 [facility], 1.2.840.1 [id number] Methodi 00:00:00 00:00:00 Only Sarai Lieberman 50122.1.1 979 s t 3.430.2.7 Hospit a .3.431358 l .8 2021-03-24 2021-03-24 [facility] 1.2.840.7 [id number] Methodi 00:00:00 00:00:[address] 3.430.2.7 Hospit a .3.841370 l .8 2021-01-19 2021-01-19 Telephone Pelletier, 1.2.840.1 [id number] 2099 [id number] Methodi 00:00:00 00:00:[address] 3.430.2.7 Hospit a .3.480176 l .8 2020-12-12 2020-12-12 Office Hematpour, [facility] 6400 1.2.840.114 12 [id number] 07:42:02 08:18:[address] 350.1.13.58 9.2.7.2.686 [id number] 1 2020-12-09 2020-12-09 Telephone [facility], 1.2.840.1 [id number] Methodi 00:00:00 00:00:00 Sarai Lieberman 84211.1.1 316 s t 3.430.2.7 Hospit a .3.329513 l .8 2020-12-08 2020-12-08 [facility], 1.2.840.1 [id number] [id number] Methodi 12:35:54 23:59:00 Encounter Ray [address]41.1.[address] 3.430.2.7 Hospit a .3.844046 l .8 2020-12-08 2020-12-08 [facility] 1.2.840.1 [id number] Methodi 17:25:00 17:30:[address] 3.430.2.7 Hospit a .3.006265 l .8 2020-12-08 2020-12-08 Office Yazmin, 1.2.840.1 [id number] Methodi 10:30:00 11:39:56 Visit Ray [address]3333.1.[address] 3.430.2.7 Hospit a .3.101938 l .8 2020-12-08 2020-12-08 Travel 1.2.840.1 1.2.140.050 4386 [id number] Methodi 00:00:00 00:00:[address] 3.430.2.7 0.2.7.3.698 Ho spita .3.060975 084.8 l .8 2020-12-02 2020-12-02 Chronic Manager [facility] 1.2.840.114 [id number] 10:20:06 10:36:19 Visit Y HEALTH 350.1.13.10 [facility] 4.2.7.2.686 [id number] 316 2020-11-25 2020-11-25 Office MEGHA Beltran 1.2.840.114 [id number] 11:06:30 11:58:14 Visit Robbi R ENVIRONMENTAL INTERN 350.1.13.10 REGIONAL 4.2.7.2.686 MATERNAL [id number] & CHILD 107 [facility] 2020-11-25 2020-11-25 [facility] 1.2.203.945 0214 4592 00:00:00 00:00:00 Santiago Y HEALTH 350.1.13.10 CLINICS 4.2.7.2.686 [id number] 089 2020-11-25 2020-11-25 Telephone Devin [facility] 1.2.837.054 [id number] 0821 00:00:00 00:00:00 Rossandynda R ENVIRONMENTAL INTERN 350.1.13.10 REGIONAL 4.2.7.2.686 MATERNAL [id number] & CHILD 107 [facility] 2020-11-14 2020-11-14 Abstract Rodas, 1.2.840.1 [id number] Methodi 00:00:00 00:00:[address] 3.430.2.7 Hospit a .3.901818 l .8 2020-11-14 2020-11-14 Telephone Clark, 1.2.840.1 [id number] 2099 [id number] Methodi 00:00:00 00:00:[address] 3.430.2.7 Hospit a .3.354058 l .8 2020-11-07 2020-11-07 Telephone Diana, KIMBERLEY 6400 1.2.840.114 124 [id number] 00:00:00 00:00:[address] 350.1.13.58 9.2.7.2.686 [id number] 1 2020-10-27 2020-10-27 Telephone Yazmin, 1.2.840.2 [id number] Methodi 00:00:00 00:00:[address] 3.430.2.7 Hospit a .3.218882 l .8 2020-10-24 2020-10-24 Telephone Rodas, 1.2.840.1 [id number] 2099 [id number] Methodi 00:00:00 00:00:[address] 3.430.2.7 Hospit a .3.348429 l .8 2020-10-06 2020-10-12 Telemedici [facility], 1.2.840.1 [id number] Methodi 15:30:00 00:08:46 ne Ray [address]4680.1.[address] 3.430.2.7 Hospit a .3.119730 l .8 2020-09-30 2020-09-30 Telephone Yazmin, 1.2.840.9 [id number] Methodi 00:00:00 00:00:[address] 3.430.2.7 Hospit a .3.068048 l .8 2020-09-21 2020-09-21 Travel 1.2.840.1 1.2.438.483 0799 [id number] Methodi 00:00:00 00:00:[address] 3.430.2.7 0.2.7.3.698 spita .3.127316 084.8 l .8 2020-09-06 2020-09-06 [facility] 1.2.840.1 [id number] Methodi 17:42:30 23:59:[address] 3.430.2.7 Hospit a .3.745629 l .8 2020-09-06 2020-09-06 [facility], 1.2.840.1 [id number] 2099 [id number] Methodi 16:50:00 17:41:00 Encounter Ray [address]31.1.[address] 3.430.2.7 Hospit a .3.510226 l .8 2020-09-05 2020-09-05 [facility], 1.2.840.1 [id number] 2099 [id number] Methodi 09:17:00 19:45:00 Encounter Ray [address]114.1.[address] 3.430.2.7 Hospit a .3.820670 l .8 2020-09-05 2020-09-05 Surgery [facility], 1.2.840.1 [id number] Methodi 11:30:00 13:15:[address] 3.430.2.7 Hospit a .3.723591 l .8 2020-09-05 2020-09-05 Anesthesia [facility], 1.2.840.1 [id number] Methodi 11:27:00 12:20:00 Event Kirit 26913.1.1 243 s t V. 3.430.2.7 Hospit a .3.764345 l .8 2020-09-05 2020-09-05 Travel 1.2.840.1 1.2.295.177 7452 [id number] Methodi 00:00:00 00:00:[address] 3.430.2.7 0.2.7.3.698 Ho spita .3.370430 084.8 l .8 2020-09-04 2020-09-04 Telephone Meisenbach, 1.2.840.1 [id number] Methodi 00:00:00 00:00:00 Sarai Lieberman 92345.1.1 762 s t 3.430.2.7 Hospit a .3.574690 l .8 2020-09-02 2020-09-02 Telephone [place], 1.2.840.0 [id number] Methodi 00:00:00 00:00:00 Sarai Lieberman 69133.1.1 344 s t 3.430.2.7 Hospit a .3.293752 l .8 2020-08-29 2020-08-30 [id number] [facility] 10:20:00 14:10:00 Outpatient [facility] 00 l [facility] 2020-08-29 2020-08-30 Outpatient HEM[facility]OUR, [facility] CAR 7500 [facility] 05:20:00 09:10:00 [place] Results Test Description Test Time Test Comments Results Result Comments Source Novel Coronavirus 2018 Inhouse 2021-08-03 18:08:00 Test Item Value Reference Range Interpretation Comme nts Novel Coronavirus 2018 Negative Negative Posit bruno results are indicative of the Inhouse (test code = presenc e bkOEJC-KeB-5 RNA, clinical COVNONPUI) correlation wit h patient [...] qualitative detection of nucleic acid s from pkaZKMT-LhD-9 virus and diagn osis of SARS-CoV-2 virusinfection. It is an Emergency Use Authorization ( EUA) testauthorized by the U.S. FDA. BASIC METABOLIC [id number] 09:37:00 Test Item Value Reference Range Interpretation [...] = 9.0 mg/dL 8.0-10.5 N CA) PROTHROMBIN [id number] 09:32:00 Test Item Value Reference Range Interpretation [...] o prevent recurre nt infarct). 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[facility] - XR CHEST 1 [id number] 00:00:00 [facility] 1955 Sex: F FAX: Lele Olivera DO [phone] [place]: St: ADM FAX: Jean Paul Scales MD [phone] FAX: aBhman Chopra [phone] Name: LIO WATTS [facility] : 1955 Age/S: 66/F [address] [place], [place] [address]vd Unit #: [id number] Loc: [place] [address] Phys: Bahman Chopra 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 BASIC METABOLIC [id number] 11:37:00 Test Item Value Reference Range Interpretation [...] code = 9.0 mg/dL 8.0-10.5 N CA) [id number] 11:37:00 Test Item Value Reference Range Interpretation Comments PREALBUMIN (test code = PREALB) 24.3 mg/dL 16.0-40.0 N PROTHROMBIN [id number] 11:03:00 Test Item Value Reference Range Interpretation [...] o prevent recurre nt infarct). CBC W/AUTO [id number] 10:59:00 Test Item Value Reference Range Interpretation [...] 0.0-0.1 N NRBC#) - XR CHEST 2 [id number] 00:00:00 [facility] 1955 Sex: F FAX: Lele Olivera DO [phone] [place]: St: PRE FAX: Jean Paul Scales MD [phone] Name: LIO WATTS [facility] : 1955 Age/S: 66/F [address] [place] [address] Unit #: [id number] Loc: [place] [address] Phys: [facility] [id number] Dis Date: Status: PRE [employer] [employer] PHONE #: [phone] Exam Date: 06/16/2021 1120 FAX #: [phone] Reason: PREOP EXAMS: CPT CODE: [id number] XR CHEST 2 V 42141 PROCEDURE INFORMATION: Exam: XR Chest Exam date [...] Technologist: Danielle Nix RT(R) Trnscrd Date/Time/By: 06/16/2021 (6799) : By: [email or web address] Orig Print D/T: S: 06/16/2021 (6945) PAGE 1 Signed ReportGastrointestinal [id number] 04:35:05 Test Item Value Reference Interpretation Comments [...] Rotavirus PCR (test Not Detected code = 7315115) Salmonella PCR (test Not Detected code = [...] PCR Not Detected (test code = 7124) [facility] [id number] 19:30:47 Test Item Value Reference Range Interpretation Comments Case number (test [id number] code = 0358256) Surgical pathology See link below for PDF report (test code = Lab Report 2255) Result status (test This is Supplemental code = 0277048) Report for [id number] [facility]2021-04-09 16:31:00 Test Item Value Reference Range Interpretation Comments POC Activated Clotting Time (test code 153 s = POC Activated Clotting Time) [place] [id number] 16:31:00 Test Item Value Reference Range Interpretation Comments POC Activated Clotting Time (test code 153 s = POC Activated Clotting Time) [place] [id number] 16:31:00 Test Item Value Reference Range Interpretation Comments POC Activated Clotting Time (test code 153 s = POC Activated Clotting Time) [place] [id number] 16:31:00 Test Item Value Reference Range Interpretation Comments POC Activated Clotting Time (test code 153 s = POC Activated Clotting Time) [id number] 16:31:00 Test Item Value Reference Range Interpretation Comments POC Activated Clotting Time (test code 153 s = POC Activated Clotting Time) [facility] [id number] 16:31:00 Test Item Value Reference Range Interpretation Comments POC Activated Clotting Time (test code 153 s = POC Activated Clotting Time) [facility] [id number] 16:31:00 Test Item Value Reference Range Interpretation Comments POC Activated Clotting Time (test code 153 s = POC Activated Clotting Time) [place] [id number] 14:37:00 Test Item Value Reference Range Interpretation Comments POC Activated Clotting Time (test code 454 s = POC Activated Clotting Time) [place] [id number] 14:37:00 Test Item Value Reference Range Interpretation Comments POC Activated Clotting Time (test code 454 s = POC Activated Clotting Time) [place] [id number] 14:37:00 Test Item Value Reference Range Interpretation Comments POC Activated Clotting Time (test code 454 s = POC Activated Clotting Time) [place] [id number] 14:37:00 Test Item Value Reference Range Interpretation Comments POC Activated Clotting Time (test code 454 s = POC Activated Clotting Time) [place] [id number] 14:37:00 Test Item Value Reference Range Interpretation Comments POC Activated Clotting Time (test code 454 s = POC Activated Clotting Time) [id number] 14:37:00 Test Item Value Reference Range Interpretation Comments POC Activated Clotting Time (test code 454 s = POC Activated Clotting Time) [id number] 14:37:00 Test Item Value Reference Range Interpretation Comments POC Activated Clotting Time (test code 454 s = POC Activated Clotting Time) [facility] [id number] 14:13:00 Test Item Value Reference Range Interpretation Comments POC Activated Clotting Time (test code 354 s = POC Activated Clotting Time) [id number] 14:13:00 Test Item Value Reference Range Interpretation Comments POC Activated Clotting Time (test code 354 s = POC Activated Clotting Time) [facility] H[id number] 14:13:00 Test Item Value Reference Range Interpretation Comments POC Activated Clotting Time (test code 354 s = POC Activated Clotting Time) [facility] [id number] 14:13:00 Test Item Value Reference Range Interpretation Comments POC Activated Clotting Time (test code 354 s = POC Activated Clotting Time) [facility]wQRNFASIHUI6984-68-96 14:13:00 Test Item Value Reference Range Interpretation Comments POC Activated Clotting Time (test code 354 s = POC Activated Clotting Time) [facility]NxmdzsdDKTSZAUYJY8873-85-86 14:13:00 Test Item Value Reference Range Interpretation Comments POC Activated Clotting Time (test code 354 s = POC Activated Clotting Time) [facility] HospitalMfsqzqlKZLCTCTLIY4180-01-84 14:13:00 Test Item Value Reference Range Interpretation Comments POC Activated Clotting Time (test code 354 s = POC Activated Clotting Time) [facility] VQQAOCT6020-98-91 10:37:00Negative (08/29/20 5:37 AM) [facility] PFMZF1880-93-23 10:37:38409Cdhoybea HermannCHEM PANEL 2020-08-29 10:37:0028[facility]annCHEM KRVCE5481-84-95 10:37:001.01[facility] HermannCHEM UCFWV5927-28-47 10:37:42221Laectiwk HermannCHEM RLUDL0546-45-01 10:37:003.8[facility] HermannCHEM YZYGX4137-28-20 10:37:78767Mfxtvsyo HermannCHEM EHTBX2833-39-70 10:37:0028[facility] HermannCHEM NZZDR2696-09-21 10:37:009.8 [facility] HermannCHEM MCFBH8356-65-83 10:37:0011.8[facility] HermannCHEM PANEL 2020-08-29 10:37:0059[facility] HermannCHEM CSIDF3310-39-38 10:37:002.9[facility] GtybmnbPRUJBLUNUW6116-49-61 10:37:006.8[facility] SftmvdgDPPVUWDNLY6885-21-91 10:37:004.47[facility] RxmabtpNXBJMVPBVV0113-62-43 10:37:0010.6[facility] JOVQGLWQSC4043-52-43 10:37:0034.0[facility] MjndodvXYOMDKPFER7124-63-47 10:37:00 76.1[facility] GcvveyqBUMYHYUUJJ9767-52-57 10:37:00 Test Item Value Reference Range Interpretation Comments MCH (test code = MCH) 23.8 pg 27.0-31.0 [facility] KgopwibAEZDEZEELY5915-08-22 10:37:0031.3[facility] HermannHEMATOLOGY 2020-08-29 10:37:0018.2[facility] WbnssvaRKLZHFSBVO4344-40-84 10:37:62169Njhkrqyc ZvbrhidDRJZCEYOYZ2149-46-15 10:37:007.5[facility] XyhogvyPHBAAHCNIC0553-72-37 10:37:00 Test Item Value Reference Range Interpretation Comments PT (test code = PT) 12.8 s 12.0-14.7 [facility] LtgdnfvNUSSYQOOJY6571-53-70 10:37:00 Test Item Value Reference Range Interpretation Comments INR (test code = INR) 0.97 1 0.85-1.17 [facility] NmipkfkKLOLVGDFVJ3201-04-55 10:37:00 Test Item Value Reference Range Interpretation Comments PTT (test code = PTT) 25.0 s 22.9-35.8 [facility] IoncijrTZEPATIZSU0819-84-59 10:37:0070.5[facility] HermannHEMATOLOGY 2020-08-29 10:37:0018.8[facility] DxnzskrOGJOBAEQPZ8596-70-68 10:37:009.5[facility] YvjjhgfJECXPYOOQK8236-86-16 10:37:000.9[facility] SuizdoxWIGDRWBKKJ2919-78-34 10:37:000.3[facility] ZdvvfzxNTUJXYUNCE7832-97-25 10:37:004.8[facility] YEDIJUIIDN1647-87-68 10:37:001.3[facility] FhznzhqAQPKRXOWFE7116-12-04 10:37:000.6 [facility] NzbqkgtUYAWKTKGMZ3648-90-40 10:37:000.1[facility] HermannHEMATOLOGY 2020-08-29 10:37:001+ *ABN*(08/29/20 5:37 AM)[facility] HmfeannPCDLAPCBRY4166-71-59 10:37:00Not Detected (08/29/20 5:37 AM)[facility] HermannBLOOD BANK RESULTS 2020-08-29 10:37:00Negative (08/29/20 5:37 AM)[facility] HermannCHEM DYHYI5611-59-92 10:37:20118Knfburfj HermannCHEM MLZOD9366-23-62 10:37:0028[facility] HermannCHEM EWWPS2089-32-04 10:37:001.01[facility] HermannCHEM QEPGH4177-04-15 10:37:62770 [facility] HermannCHEM IQAED1022-98-51 10:37:003.8[facility] HermannCHEM PANEL 2020-08-29 10:37:46698Bguvpzfa HermannCHEM VZPWM1616-34-89 10:37:0028[facility] HermannCHEM EFARH8051-24-93 10:37:009.8[facility] HermannCHEM BDPBW1081-22-66 10:37:0011.8[facility] HermannCHEM TYCPX5094-17-15 10:37:0059[facility] HermannCHEM NNJOL8692-54-05 10:37:002.9[facility] UxfhqrdUOXGAGCDYK5975-29-10 10:37:006.8 [facility] TmvdtujKKCYICNNGO6861-18-76 10:37:004.47[facility] HermannHEMATOLOGY 2020-08-29 10:37:0010.6[facility] EgspymyBQDXMRINTB5410-13-93 10:37:0034.0[facility] XemgeeiRKLPYKFETP9001-41-99 10:37:0076.1[facility] SnjppaiRJXLFCNIOS6893-60-55 10:37:00 Test Item Value Reference Range Interpretation Comments MCH (test code = MCH) 23.8 pg 27.0-31.0 [facility] IurwrzfSHRBIXNPAC4232-09-27 10:37:0031.3[facility] HermannHEMATOLOGY 2020-08-29 10:37:0018.2[facility] UonhigaZXHACKBTAD1917-93-09 10:37:07914Mvitmlin ZwjqxfgOFBSOPGTZT1360-42-43 10:37:007.5[facility] KdrgrbhSICKYAOSDA4949-49-14 10:37:00 Test Item Value Reference Range Interpretation Comments PT (test code = PT) 12.8 s 12.0-14.7 [facility] MrjmrhvTIMEINWGBR0905-97-22 10:37:00 Test Item Value Reference Range Interpretation Comments INR (test code = INR) 0.97 1 0.85-1.17 [facility] ZeukumhAEJBICXRFL8947-92-05 10:37:00 Test Item Value Reference Range Interpretation Comments PTT (test code = PTT) 25.0 s 22.9-35.8 [facility] MktriuzEYUJELTGIO5065-02-89 10:37:0070.5[facility] HermannHEMATOLOGY 2020-08-29 10:37:0018.8[facility] IcwwtuzHMJFRWWMTX6988-00-82 10:37:009.5[facility] NhazmrrSFZSPFSESZ7175-07-08 10:37:000.9[facility] ZealytlWDFJWOJIOK0927-30-00 10:37:000.3[facility] BwflgjeETSUVXEOYW8401-15-90 10:37:004.8[facility] BNCWSKHBRO7967-83-90 10:37:001.3[facility] MlyxxkdBKBLWMQXRT5441-61-43 10:37:000.6 [facility] CuuutoeFOXZRRAVJU4766-20-60 10:37:000.1[facility] HermannHEMATOLOGY 2020-08-29 10:37:001+ *ABN*(08/29/20 5:37 AM)[facility] TphyhhmJQMTVNELMV1903-54-61 10:37:00Not Detected (08/29/20 5:37 AM)[facility] HermannBLOOD BANK RESULTS 2020-08-29 10:37:00Negative (08/29/20 5:37 AM)[facility] HermannCHEM JGORK6482-91-33 10:37:95025Zvgtaigp HermannCHEM UWGNZ9663-25-69 10:37:0028[facility] HermannCHEM LPFZO2291-32-13 10:37:001.01[facility] HermannCHEM WVTIW0036-00-66 10:37:75746 [facility] HermannCHEM JDMEQ1106-41-10 10:37:003.8[facility] HermannCHEM PANEL 2020-08-29 10:37:97063Dvivbiym HermannCHEM OLULT3922-88-50 10:37:0028[facility] HermannCHEM NNBPH1421-25-56 10:37:009.8[facility] HermannCHEM PMQZY3061-73-11 10:37:0011.8[facility] HermannCHEM RDBRB2616-73-67 10:37:0059[facility] HermannCHEM TVPJP5979-31-46 10:37:002.9[facility] CxnmqiySTVEGBLCUQ6207-44-43 10:37:006.8 [facility] SxipxvhVBPMQSLCNA0168-36-90 10:37:004.47[facility] HermannHEMATOLOGY 2020-08-29 10:37:0010.6[facility] YoiaqzeRBNMMMKRTL6229-28-43 10:37:0034.0[facility] CkfqpifMIZTJMTCNX0627-61-32 10:37:0076.1[facility] FnczwelAUUTESKMLL7967-01-01 10:37:00 Test Item Value Reference Range Interpretation Comments MCH (test code = MCH) 23.8 pg 27.0-31.0 [facility] GbsjyeqMXBWBJGEPX9417-31-35 10:37:0031.3[facility] HermannHEMATOLOGY 2020-08-29 10:37:0018.2[facility] VextcjwFASSNXYVLV6275-89-32 10:37:74660Ikbeimot UeuocibICIAFGNNMO2006-41-73 10:37:007.5[facility] RmuxpjmXOUEOESNVZ3555-20-52 10:37:00 Test Item Value Reference Range Interpretation Comments PT (test code = PT) 12.8 s 12.0-14.7 [facility] BsjqxrvRYALQMHILP9755-25-50 10:37:00 Test Item Value Reference Range Interpretation Comments INR (test code = INR) 0.97 1 0.85-1.17 [facility] DfdrsurLMPFLQBANI4648-41-31 10:37:00 Test Item Value Reference Range Interpretation Comments PTT (test code = PTT) 25.0 s 22.9-35.8 [facility] KfamsgrOCLQZBJHGR4215-54-00 10:37:0070.5[facility] HermannHEMATOLOGY 2020-08-29 10:37:0018.8[facility] MctqtncEZIFLWDSVC6243-95-78 10:37:009.5[facility] UqsnhkyEDMSDBLOJM4273-52-20 10:37:000.9[facility] LxygztySKEYFTXPLL0356-42-49 10:37:000.3[facility] HqhzerjOVEGJDTGZX4697-72-13 10:37:004.8[facility] OMVOFPQSOS0286-96-23 10:37:001.3[facility] IgfgdfqPHXZANOSKD3472-94-09 10:37:000.6 [facility] QuufikiFUZCEMOIJQ4765-20-69 10:37:000.1[facility] HermannHEMATOLOGY 2020-08-29 10:37:001+ *ABN*(08/29/20 5:37 AM)[facility] ZzruqibOQBCHSIRQF4727-21-17 10:37:00Not Detected (08/29/20 5:37 AM)[facility] HermannBLOOD BANK RESULTS 2020-08-29 10:37:00Negative (08/29/20 5:37 AM)[facility] HermannCHEM CXQXO8333-43-87 10:37:75362Tlyajoqr HermannCHEM YJNCR5200-38-58 10:37:0028[facility] HermannCHEM XUXPH2502-24-77 10:37:001.01[facility] HermannCHEM KXRNH8122-39-06 10:37:34436 [facility] HermannCHEM LTENU2912-63-71 10:37:003.8[facility] HermannCHEM PANEL 2020-08-29 10:37:49732Mrggospe HermannCHEM TEWCN0723-62-29 10:37:0028[facility] HermannCHEM LFKBI4328-72-33 10:37:009.8[facility] HermannCHEM XQKYG9865-41-48 10:37:0011.8[facility] HermannCHEM HQPQA6323-25-72 10:37:0059[facility] HermannCHEM KXBVT0984-74-87 10:37:002.9[facility] WzpardbVYTHZYEOCV6218-86-47 10:37:006.8 [facility] CgjftveTEVFRDXQKZ1542-82-35 10:37:004.47[facility] HermannHEMATOLOGY 2020-08-29 10:37:0010.6[facility] UuxaaetSEUFUMRYPW5600-66-49 10:37:0034.0[facility] QqxpupbDTIDRJEWQC6055-48-89 10:37:0076.1[facility] AsxkcpwXNSECZEVAG7075-97-02 10:37:00 Test Item Value Reference Range Interpretation Comments MCH (test code = MCH) 23.8 pg 27.0-31.0 [facility] PwyyokuUMWGCGVQJU2819-84-90 10:37:0031.3[facility] HermannHEMATOLOGY 2020-08-29 10:37:0018.2[facility] JkwlyrbWTDYZGDLZM8757-05-04 10:37:63678Yayoggee EtyxzqhQVJXUNWBCT3012-19-80 10:37:007.5[facility] TapxcciTPVUPVGRZO1510-19-78 10:37:00 Test Item Value Reference Range Interpretation Comments PT (test code = PT) 12.8 s 12.0-14.7 [facility] DkmipvhVWLVEEQNVX9276-42-87 10:37:00 Test Item Value Reference Range Interpretation Comments INR (test code = INR) 0.97 1 0.85-1.17 [facility] OwzakmkKOXLNYPOGO2755-38-92 10:37:00 Test Item Value Reference Range Interpretation Comments PTT (test code = PTT) 25.0 s 22.9-35.8 [facility] VmjjxntYIIOLZGXTY2952-16-41 10:37:0070.5[facility] HermannHEMATOLOGY 2020-08-29 10:37:0018.8[facility] HbwkarwWNJKGZEULR5668-79-97 10:37:009.5[facility] GdwmwfoYBUKIHFIZW9141-37-89 10:37:000.9[facility] GkztciaDCUOTFEQLR1347-39-00 10:37:000.3[facility] HzfheuvEMMUOMPRHV3431-06-01 10:37:004.8[facility] ZJPWNIDYZJ2692-54-99 10:37:001.3[facility] GmhdmbhHAJJGPZTYK7346-99-04 10:37:000.6 [facility] BnimlrtEAYIJIHRBL7383-84-26 10:37:000.1[facility] HermannHEMATOLOGY 2020-08-29 10:37:001+ *ABN*(08/29/20 5:37 AM)[facility] NgjafbeYJOOFBZFOT4469-31-09 10:37:00Not Detected (08/29/20 5:37 AM)[facility] HermannBLOOD BANK RESULTS 2020-08-29 10:37:00Negative (08/29/20 5:37 AM)[facility] HermannCHEM OVEPC3499-69-99 10:37:64266Kqkmzjbz HermannCHEM BBEST5393-40-05 10:37:0028[facility] HermannCHEM WAXXY6274-18-13 10:37:001.01[facility] HermannCHEM BIBXC5492-97-36 10:37:32492 [facility] HermannCHEM YLHDR2081-43-21 10:37:003.8[facility] HermannCHEM PANEL 2020-08-29 10:37:81574Hopwywnd HermannCHEM KPGMW8494-41-39 10:37:0028[facility] HermannCHEM PVBTM4282-62-64 10:37:009.8[facility] HermannCHEM DKUFD3669-14-40 10:37:0011.8[facility] HermannCHEM YYVUW0632-10-51 10:37:0059[facility] HermannCHEM KBNDL6137-87-51 10:37:002.9[facility] BmaaecmSGYTSOKOHG2479-62-95 10:37:006.8 [facility] HoyznxrYKVPSDEYUC1949-45-03 10:37:004.47[facility] HermannHEMATOLOGY 2020-08-29 10:37:0010.6[facility] PdwjdigJVJNKOOQED8096-50-72 10:37:0034.0[facility] HsmjengMXDRSYPJTT8469-46-89 10:37:0076.1[facility] RpuzhjaXBWHUIHEVI0039-71-65 10:37:00 Test Item Value Reference Range Interpretation Comments MCH (test code = MCH) 23.8 pg 27.0-31.0 [facility] AhuusjzDEWOHHCHHH5319-26-70 10:37:0031.3[facility] HermannHEMATOLOGY 2020-08-29 10:37:0018.2[facility] VbbdfkbQNNLLKWQNA6866-61-48 10:37:78601Ufwldcgp TquzcvzWYYRNWUYIR0902-79-94 10:37:007.5[facility] XoymfngWEKOBIMKHI9218-55-06 10:37:00 Test Item Value Reference Range Interpretation Comments PT (test code = PT) 12.8 s 12.0-14.7 [facility] GvcrirfSRTETLGBXI1279-53-79 10:37:00 Test Item Value Reference Range Interpretation Comments INR (test code = INR) 0.97 1 0.85-1.17 [facility] OmaqkrbDWIFMPVJXT8366-63-68 10:37:00 Test Item Value Reference Range Interpretation Comments PTT (test code = PTT) 25.0 s 22.9-35.8 [facility] DbuswbmKRKALFIUVR2053-50-37 10:37:0070.5[facility] HermannHEMATOLOGY 2020-08-29 10:37:0018.8[facility] CjmayxqQSDSIOZABW1483-58-39 10:37:009.5[facility] MqzxyxfZXJYRMYLPY1909-87-89 10:37:000.9[facility] CbbtckiUDYNLLZCEO4266-68-02 10:37:000.3[facility] AgxwzdkDZRRJGFKUJ9570-55-50 10:37:004.8[facility] OCWOAQSDJK4907-71-53 10:37:001.3[facility] EpmrgtoCJRAVOQDHS2737-72-54 10:37:000.6 [facility] NpaiijgYLJDZUNDGP6248-34-59 10:37:000.1[facility] HermannHEMATOLOGY 2020-08-29 10:37:001+ *ABN*(08/29/20 5:37 AM)[facility] HnhhyivOMYRYURXAV3567-92-20 10:37:00Not Detected (08/29/20 5:37 AM)[facility] HermannBLOOD BANK RESULTS 2020-08-29 10:37:00Negative (08/29/20 5:37 AM)[facility] HermannCHEM YHMRW8019-57-35 10:37:72772Itwryfde HermannCHEM TJBFI7569-55-58 10:37:0028[facility] HermannCHEM AWHIP2149-76-91 10:37:001.01[facility] HermannCHEM UVHJN2489-05-71 10:37:29068 [facility] HermannCHEM KHRYJ7329-16-73 10:37:003.8[facility] HermannCHEM PANEL 2020-08-29 10:37:77727Zgymmzal HermannCHEM JPDEW9508-60-58 10:37:0028[facility] HermannCHEM BXRZX4856-51-35 10:37:009.8[facility] HermannCHEM PEJEI0326-91-32 10:37:0011.8[facility] HermannCHEM RNWHP5049-03-99 10:37:0059[facility] HermannCHEM UKDKG3626-37-55 10:37:002.9[facility] QjrdyeyZAOOLPZURM5285-11-60 10:37:006.8 [facility] VzthwwnINLYMHEKTH8769-68-11 10:37:004.47[facility] HermannHEMATOLOGY 2020-08-29 10:37:0010.6[facility] VcetpmkFGRAOMLHAT6895-94-62 10:37:0034.0[facility] SsezswdALTCIEADSG3952-27-08 10:37:0076.1[facility] IsnnczxWZNRXKQBUY8595-94-44 10:37:00 Test Item Value Reference Range Interpretation Comments MCH (test code = MCH) 23.8 pg 27.0-31.0 [facility] MmvgifhFKZKHQJERG9741-38-25 10:37:0031.3[facility] HermannHEMATOLOGY 2020-08-29 10:37:0018.2[facility] NleugriWEBUKMAUIH3516-58-12 10:37:52783Quqqzfjh AbxikiuGBJXESNVFG4310-83-82 10:37:007.5[facility] XwezhhaVIZHRMACBM8556-18-79 10:37:00 Test Item Value Reference Range Interpretation Comments PT (test code = PT) 12.8 s 12.0-14.7 [facility] DslkvveCUTLCFPTQX5270-46-66 10:37:00 Test Item Value Reference Range Interpretation Comments INR (test code = INR) 0.97 1 0.85-1.17 [facility] GzrfhjeIKTDFIMYOF7479-43-04 10:37:00 Test Item Value Reference Range Interpretation Comments PTT (test code = PTT) 25.0 s 22.9-35.8 [facility] MadrtbcGWQUDBOSDQ6319-36-19 10:37:0070.5[facility] HermannHEMATOLOGY 2020-08-29 10:37:0018.8[facility] HfjyfalKLTSOHQZJB1069-85-56 10:37:009.5[facility] UsgeeyfRVNRYHNUWS4565-70-28 10:37:000.9[facility] QhaecaeIZPTOFVWJB8046-94-76 10:37:000.3[facility] QjpbgydKAVHDFSKXH5647-48-32 10:37:004.8[facility] CYSFLPNKNE8090-26-30 10:37:001.3[facility] XyrllzxCHTZZLAASJ4454-55-35 10:37:000.6 [facility] VodlookBGOTKNKNMJ3101-95-03 10:37:000.1[facility] HermannHEMATOLOGY 2020-08-29 10:37:001+ *ABN*(08/29/20 5:37 AM)[facility] LvjsgquWFRZKGGOIH2771-40-16 10:37:00Not Detected (08/29/20 5:37 AM)[facility] HermannBLOOD BANK RESULTS 2020-08-29 10:37:00Negative (08/29/20 5:37 AM)[facility] HermannCHEM DNHLH8005-27-24 10:37:40271Covbiuen HermannCHEM CAPAL5241-67-03 10:37:0028[facility] HermannCHEM DRKOY8115-91-58 10:37:001.01[facility] HermannCHEM BAVOU9180-31-92 10:37:50390 [facility] HermannCHEM INCGI8821-61-40 10:37:003.8[facility] HermannCHEM PANEL 2020-08-29 10:37:10857Anwgkegb HermannCHEM HNFGT9910-71-51 10:37:0028[facility] HermannCHEM XVFGZ6223-31-56 10:37:009.8[facility] HermannCHEM YPCTK0995-41-00 10:37:0011.8[facility] HermannCHEM WBGYM3379-56-10 10:37:0059[facility] HermannCHEM UPQBU7945-18-59 10:37:002.9[facility] VlvbxhwKZPRCYKDFJ7537-38-74 10:37:006.8 [facility] BtljbhaSJKEUVBMAT9296-66-88 10:37:004.47[facility] HermannHEMATOLOGY 2020-08-29 10:37:0010.6[facility] EamgsbtOSGQYSSKYS4513-84-09 10:37:0034.0[facility] NrcsutfBTCJSYKDZV9265-28-73 10:37:0076.1[facility] PddnhkyBCMBOGVXZE4165-93-74 10:37:00 Test Item Value Reference Range Interpretation Comments MCH (test code = MCH) 23.8 pg 27.0-31.0 [facility] AssrlqeNZGLRZLDZN1708-90-38 10:37:0031.3[facility] HermannHEMATOLOGY 2020-08-29 10:37:0018.2[facility] OvqxgdjHMOMXJUVPJ3995-16-72 10:37:63503Tccfsxxv DuroamuOWSBCBLEXB6825-78-61 10:37:007.5[facility] RwdslclBHSFJMEJKH3835-21-29 10:37:00 Test Item Value Reference Range Interpretation Comments PT (test code = PT) 12.8 s 12.0-14.7 [facility]dsjcgwIEWEXNADKB0571-10-28 10:37:00 Test Item Value Reference Range Interpretation Comments INR (test code = INR) 0.97 1 0.85-1.17 [facility] ArlingtonByeehtcSHDONBYHPF6113-93-49 10:37:00 Test Item Value Reference Range Interpretation Comments PTT (test code = PTT) 25.0 s 22.9-35.8 [facility] HaqxylsOBKVOHNQTQ7469-94-71 10:37:0070.5[facility] HermannHEMATOLOGY 2020-08-29 10:37:0018.8[facility] JinmzboJOKXWNELTX9647-74-05 10:37:009.5[facility] ShesilgTZLJFGTKMO0646-84-68 10:37:000.9[facility] EnihmjqWRGWOXHXOJ0036-42-32 10:37:000.3[facility] LjdudkcCBZOHCUQGD9677-89-98 10:37:004.8[facility] IOTRLOXYZO8964-28-42 10:37:001.3[facility] EpzbaexTGTSDQYDHD1659-52-96 10:37:000.6 [facility] IxheytuBGACVWDZPW5492-89-16 10:37:000.1[facility] HermannHEMATOLOGY 2020-08-29 10:37:001+ *ABN*(08/29/20 5:37 AM)[facility] RxizuqtMVIKYCIEGM3259-26-59 10:37:00Not Detected (08/29/20 5:37 AM)[facility]ielCOUNTS IN[facility] 234 [facility]S [facility], GC, TV,PCR, IN IGFIH4103-70-11 15:38:00 Test Item Value Reference Range Interpretation Comments FT (test code = CHTR) Not detected (qualifier Not Detected N value) FT (test code = Not detected (qualifier Not Detected N NGONO) value) FT (test code = TRVG) Not detected (qualifier Not Detected N value) URINALYSIS WITH YSNEZAAJKFG4297-55-69 10:57:00 Test Item Value Reference Range Interpretation Comments Color (test code = UCOLR) Dk. Yellow Clarity (test code = UCLAR) Hazy Glucose (test code = UGLUC) NEGATIVE NEGATIVE N Bilirubin (test code = UBILI) NEGATIVE NEGATIVE N Ketones (test code = UKET) NEGATIVE NEGATIVE N Specific [place] (test code = 1.025 1.005-1.030 A USPGR) [...]
[2021-10-22] MEDS ORDERED: ONDANSETRON 4 MG (ODT) TAB ONE (15:37)
[2021-10-22] MEDS ORDERED: MORPHINE 4 MG/ML SYR ONE (15:37)
--- NOTE | 2021-10-22 16:14 | RAD REPORT ---
EXAM DESCRIPTION: RADSacrum And Coccyx10/22/2021 4:04 pm CLINICAL HISTORY: Back pain FINDINGS: No fracture is seen Slight anterior subluxation L5 on S1. Bones are osteoporotic Subchondral sclerosis and osteophytes involve the pubic symphysis
--- NOTE | 2021-10-22 16:28 | EDPHYS ---
Physician Documentation [facility] Name: Fawn Fleming Age: 66 yrs Sex: Female : 1955 Arrival Date: 10/22/2021 Time: 14:59 Bed 7 Private MD: Lele Rahman H ED Physician Justus Kolb HPI: 10/22 15:05 This 66 yrs old Female presents to ER via Wheelchair with complaints of sacrum pain. [facility] 15:05 The complaints affect the buttocks. Onset: The symptoms/episode began/occurred today. jh7 Patient reports sacral/coccyx pain starting this morning. Denies any trauma/injury. States that she has chronic spine issues. Denies any numbness, tingling, dizziness, or any neuro symptoms.. Historical: - Allergies: 15:02 TRIMETHOPRIM; tw2 15:02 sulfamethoxazole (bulk); tw2 15:02 Stadol; tw2 15:02 Reglan; tw2 15:02 Fentanyl; tw2 15:02 butorphanol tartrate; tw2 15:02 Bactrim DS; tw2 - PMHx: 15:02 Anxiety; Atrial Fib; Bipolar disorder; Chronic pain; COPD; esophageal varices; tw2 Hepatitis; HIV; Hypertension; Migraines; Panic Attacks; - PSHx: 15:02 Appendectomy; Bilateral shoulder repair; Cholecystectomy; hernia repair; R wrist SX; tw2 - Immunization history:: Adult Immunizations Client reports receiving the 2nd dose of the Covid vaccine. - Social history:: Smoking status: Smoking status: Patient denies any tobacco usage or history of. ROS: 15:05 Constitutional: Negative for fever, chills, and weight loss, Neck: Negative for injury, jh7 pain, and swelling, Cardiovascular: Negative for chest pain, palpitations, and edema, Respiratory: Negative for shortness of breath, cough, wheezing, and pleuritic chest pain, Abdomen/GI: Negative for abdominal pain, nausea, vomiting, diarrhea, and constipation, Skin: Negative for injury, rash, and discoloration, Neuro: Negative for headache, weakness, numbness, tingling, and seizure. 15:05 Back: Positive for pain at rest, Negative for injury or acute deformity, radiated pain. 15:05 All other systems are negative. Exam: 15:05 Neck: Trachea midline, no thyromegaly or masses palpated, and no cervical [facility] lymphadenopathy. Supple, full range of motion without nuchal rigidity, or vertebral point tenderness. No Meningismus. Cardiovascular: Regular rate and rhythm with a normal S1 and S2. No gallops, murmurs, or rubs. Normal PMI, no JVD. No pulse deficits. Respiratory: Lungs have equal breath sounds bilaterally, clear to auscultation and percussion. No rales, rhonchi or wheezes noted. No increased work of breathing, no retractions or nasal flaring. Abdomen/GI: Soft, non-tender, with normal bowel sounds. No distension or tympany. No guarding or rebound. No evidence of tenderness throughout. Skin: Warm, dry with normal turgor. Normal color with no rashes, no lesions, and no evidence of cellulitis. MS/ Extremity: Pulses equal, no cyanosis. Neurovascular intact. Full, normal range of motion, but difficulty walking secondary to sacral pain Neuro: Awake and alert, GCS 15, oriented to person, place, time, and situation. . Motor strength 5/5 in all extremities. Sensory grossly intact. Antalgic gait. 15:05 Constitutional: The patient appears alert, awake, uncomfortable. 15:05 Back: pain, that is moderate, of the buttocks, Patient reports pain with tenderness to palpation over S3-S5. No bruising, swelling, or any signs of trauma.. Vital Signs: 15:01 Weight 95.25 kg (R); Height 5 ft. 4 in. (162.56 cm); Pain 10/10; tw2 15:03 BP 172 / 88; Pulse 64; Resp 17; Temp 97.9(TE); tw2 15:01 Body Mass Index 36.05 (95.25 kg, 162.56 cm) tw2 MDM: 15:17 Patient medically screened. thomas 16:30 Differential diagnosis: contusion, Chronic pain. Data reviewed: vital signs, nurses [facility] notes, radiologic studies, plain films. Data interpreted: Pulse oximetry: is 99 %. Interpretation: normal. Counseling: I had a detailed discussion with the patient and/or guardian regarding: the historical points, exam findings, and any diagnostic results supporting the discharge/admit diagnosis, to return to the emergency department if symptoms worsen or persist or if there are any questions or concerns that arise at home. Response to treatment: the patient's symptoms have mildly improved after treatment. ED course: The patient remained stable throughout her ER visit. She was initially upset that she was getting her morphine IM rather than IV and stated "they must not know how to practice medicine". Told the patient that we would give her 1 [place], but she needed to follow-up with pain management for additional controlled medications. The patient understood the plan of care. If she has any other concerns, she may return to the ER for further eval.. 10/22 15:23 Order name: XRAY Sacrum And Coccyx; Complete Time: 16:24 jh7 Administered Medications: 15:35 Drug: morphine 4 mg Route: IM; Site: right gluteus; bp 16:27 Follow up: Response: Pain is decreased bp 15:35 Drug: Ondansetron 4 mg Route: PO; bp 16:27 Follow up: Response: No adverse reaction bp 16:30 Drug: HYDROcodone-acetaminophen 5 mg-325 mg 1 tabs Route: PO; bp 16:38 Follow up: Response: No adverse reaction; Pain is decreased bp Disposition Summary: 10/22/21 16:27 Discharge Ordered Location: Home [facility] Problem: an ongoing problem 7 Symptoms: have improved jh7 Condition: Stable jh7 Diagnosis - Other intervertebral disc degeneration, lumbosacral region 7 Followup: [facility] - With: Lele Rahman DO - When: 2 - 3 days - Reason: Recheck today's complaints Discharge Instructions: - Discharge Summary Sheet 7 - Chronic Back Pain 7 - Back Exercises, [id number] [facility] Forms: - Medication Reconciliation Form [facility] - Thank You Letter 7 - Prescription Opioid Use [facility] Signatures: Dispatcher [employer] EDJustus Perrin MD MD cha Wise, Tara, RN RN tw2 CarlosE duardo Olivera, ASHLEY RN bp Karen Quintanilla FNP FNP [facility]
--- NOTE | 2021-10-22 16:28 | ER ---
Nurse's Notes [facility] Name: Fawn Fleming Age: 66 yrs Sex: Female : 1955 Arrival Date: 10/22/2021 Time: 14:59 Bed 7 Private MD: Lele Rahman H Diagnosis: Other intervertebral disc degeneration, lumbosacral region Presentation: 10/22 15:01 Chief complaint: Patient states: i feel like i cant walk. i have to just bend over to tw2 go to stand up and my lower back. Coronavirus screen: Client presents with at least one sign or symptom that may indicate coronavirus-19. Ebola Screen: Patient denies travel to an Ebola-affected area in the 21 days before illness onset. Initial Sepsis Screen: Does the patient meet any 2 criteria? No. Patient's initial sepsis screen is negative. Does the patient have a suspected source of infection? No. Patient's initial sepsis screen is negative. Risk Assessment: Do you want to hurt yourself or someone else? Patient reports no desire to harm self or others. Onset of symptoms was October 22, 2021. 15:01 Method Of Arrival: Wheelchair tw2 15:01 Acuity: BLAYNE 4 tw2 15:03 Chief complaint: Patient states: its both legs but it starts at the bottom of my spine. tw2 Triage Assessment: 15:02 General: Appears in no apparent distress. uncomfortable, Behavior is cooperative, tw2 fussy. Pain: Complains of pain in right leg and left leg. Historical: - Allergies: 15:02 TRIMETHOPRIM; tw2 15:02 sulfamethoxazole (bulk); tw2 15:02 Stadol; tw2 15:02 Reglan; tw2 15:02 Fentanyl; tw2 15:02 butorphanol tartrate; tw2 15:02 Bactrim DS; tw2 - PMHx: 15:02 Anxiety; Atrial Fib; Bipolar disorder; Chronic pain; COPD; esophageal varices; tw2 Hepatitis; HIV; Hypertension; Migraines; Panic Attacks; - PSHx: 15:02 Appendectomy; Bilateral shoulder repair; Cholecystectomy; hernia repair; R wrist SX; tw2 - Immunization history:: Adult Immunizations Client reports receiving the 2nd dose of the Covid vaccine. - Social history:: Smoking status: Smoking status: Patient denies any tobacco usage or history of. Screenin:06 Abuse screen: Denies threats or abuse. Nutritional screening: No deficits noted. tw2 Tuberculosis screening: No symptoms or risk factors identified. Fall Risk Secondary diagnosis (15 points) impaired mobility. Assessment: 15:05 General: SEE TRIAGE NOTE. bp 16:38 Reassessment: PT D/C HOME VIA W/C, DX WITH CHRONIC BACK PAIN. bp Vital Signs: 15:01 Weight 95.25 kg (R); Height 5 ft. 4 in. (162.56 cm); Pain 10/10; tw2 15:03 BP 172 / 88; Pulse 64; Resp 17; Temp 97.9(TE); tw2 15:01 Body Mass Index 36.05 (95.25 kg, 162.56 cm) tw2 ED Course: 14:59 Patient arrived in ED. am2 14:59 Lele Rahman DO is Private Physician. am2 15:01 Triage completed. tw2 15:02 Arm band placed on. tw2 15:03 Bed in low position. Call light in reach. Side rails up X 1. tw2 15:06 Carlos Eduardo Olivera, RN is Primary Nurse. bp 15:17 Justus Kolb MD is Attending Physician. [facility] 15:19 [facility]. j[facility] 15:20 Justus Kolb MD is Attending Physician. jh7 16:05 XRAY Sacrum And Coccyx In Process Unspecified. EDMS 16:25 Lele Rahman DO is Referral Physician. jh7 16:38 No provider procedures requiring assistance completed. Patient did not have IV access bp during this emergency room visit. Administered Medications: 15:35 Drug: morphine 4 mg Route: IM; Site: right gluteus; bp 16:27 Follow up: Response: Pain is decreased bp 15:35 Drug: Ondansetron 4 mg Route: PO; bp 16:27 Follow up: Response: No adverse reaction bp 16:30 Drug: HYDROcodone-acetaminophen 5 mg-325 mg 1 tabs Route: PO; bp 16:38 Follow up: Response: No adverse reaction; Pain is decreased bp Medication: 16:38 VIS not applicable for this client. bp Outcome: 16:27 Discharge ordered by . jh7 16:38 Discharged to home via wheelchair, with family. bp 16:38 Condition: stable 16:38 Discharge instructions given to patient, Instructed on discharge instructions, follow up and referral plans. Demonstrated understanding of instructions, follow-up care. 16:39 Patient left the ED. bp Signatures: Dispatcher [employer] Justus Long MD MD cha Wise, Tara, RN RN tw2 Danielle Ferrer Brian, RN RN Karen Cameron FNP FNP 7
[2021-10-22] MEDS ORDERED: HYDROCODONE/APAP 5/325 MG TAB ONE (16:40)
[2021-10-22 17:09] VITALS: BP 172/88; TEMP 97.9
== END 2021-10-22 16:39 | disposition home or self-care (01) ==
LOC: ER 14:54
DX: M51.37 Other intervertebral disc degeneration, lumbosacral region (principal); I10 Essential (primary) hypertension; J44.9 Chronic obstructive pulmonary disease, unspecified; F31.9 Bipolar disorder, unspecified; Z21 Asymptomatic human immunodeficiency virus [HIV] infection status; Z88.1 Allergy status to other antibiotic agents; Z88.2 Allergy status to sulfonamides; Z88.5 Allergy status to narcotic agent; Z88.8 Allergy status to other drugs, medicaments and biological substances
CPT/HCPCS: 72220; 96372; 99283

== ENCOUNTER 2021-10-25 19:49 | Emergency (ER) | payer OTHER ==
--- OUTSIDE RECORDS SUMMARY | 2021-10-25 19:59 | XMS REPORT | Continuity of Care Document ---
:1955 Author Organization [facility] t Address [address] [place] [address] Care Team Providers Name Role Phone Francisco Rahman Primary Care Physician Ashely Attending Clinician Unavailable JENNY Attending Clinician Unavailable Christian MCALLISTER Attending Clinician Unavailable Miguelangel JENKINS Attending Clinician Christian Mcallister MD Attending Clinician Kinjal JENKINS Attending Clinician Yazmin JENKINS Attending Clinician Emerald Maharaj NP. Attending Clinician Prabhu SANCHEZ Attending Clinician Unavailable [facility] Attending Clinician Unavailable Devin HUITRONP, R Attending Clinician Ronald DHILLON Attending Clinician Clark SANCHEZ Attending Clinician Unavailable Diana SANCHEZ Attending Clinician Unavailable Remigio JENKINS V. Attending Clinician KINJAL Attending Clinician Unavailable DO SYL Attending Clinician Unavailable Kristen Rahman Admitting Clinician Unavailable Ashely Admitting Clinician Unavailable YAZMIN Admitting Clinician Unavailable DO SYL Admitting Clinician Unavailable Payers Payer Name Policy Type Policy Number Effective Date Expiration Date S gabino [facility] COMMUNITY PLAN [id number] 2012 [employer] 00:00:00 [place] [facility] DUAL [id number] 2020 COMP HMO D SNP 00:00:00 MEDICAID OF [place] [id number] 2020 00:00:00 Problems Condition Condition Condition Status Onset Resolution Last Treating Co mments Source Name Details Category Date Date Treatment Clinician Date Gastropare Gastropare Disease Active Overview : Methodi sis sis 4-[address] 00:00: [facility] 00 note l might be different from the original. Added automatic ally from request for surgery [id number] Dysphagia Dysphagia Disease Active Overview: Methodi 4-[address] 00:00: g of this [facility]osp[facility] 00 note l might be different from the original. Added automatic ally from request for surgery [id number] CCL / EPS Diagnosis Active 2020-10-15 Memoria PVI 3-30 17:07:00 l ABLATION CCL / 00:00: Marty W/ CARTO / EPS PVI 00 GA / T ABLATION W/ CARTO / GA / T Active 08/19/2020 [facility] Food Food Disease Active 2019-05 Methodi intoleranc [...] (BMI 2-19 ity of 30-39.9) 30-39.9) 00:00: [place] [facility] Anemia Anemia Disease Active 2014-05 Univers 0-03 ity of 00:00: [place] [facility] Hypovolemi Hypovolemi Disease Active 2014-05 U nivers a due to a due to 0-02 ity of hemorrhage hemorrhage 00:[place] [facility] Chest pain Chest pain Disease Active 2014-05 U nivers 0- ity of 00:00: [place] [facility] 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:00: [place] shoulder shoulder 00 Medica l arthroplas arthroplas Br anch ty ty Posttrauma Posttrauma Disease Active U nivers tic stress tic stress 09-27 it y of disorder disorder 00:00: [place] [facility] 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 00:00: [place] virus virus Medical (HIV) (HIV) Branch disease disease Bipolar 2 Bipolar 2 Disease Active Uni vers disorder disorder 11-18 ity of 00:00: [place] [facility] Chronic Chronic Disease Active Univers hepatitis hepatitis 11-18 ity of C C 00:00: [place] [facility] Hypertensi Hypertensi Disease Active U nivers on on 11-18 ity of 00:00: [place] [facility] Allergies, Adverse Reactions, Alerts Allergy Allergy Status Severity Reaction(s) Onset Inactive Treating Comm ents Source Name Type Date Date Clinician sulfamet DA Active SV N/V [facility] hoxazole 1-25 Clear 00:00: [facility] trimetho DA Active SV [facility] prim 1-25 Clear 00:00: Garcia [facility] codeine DA Active SV N/V [facility] 1-25 Clear 00:00: Garcia [facility] Metoclop Propensi Active [place] ramide [...] Propensi Active Method i ramide ty to 5 st Hcl adverse 00:00: Hospita reaction 00 [...] High Unknown-Cmnt 2015-05 Un matt HOXAZOLE INGREDI - ity of 00:00: [place] 00 Medical Branch Sulfamet Propensi Active Other - See 2015-05 Stomach Univers hoxazole ty to comments 06-24 pain ity of adverse 00:00: [place] reaction 00 Medical s Branch METOCLOP DRUG Active Anxiety Univers RAMIDE INGREDI - ity of HCL 00:00: [place] 00 Medical Branch Metoclop Propensi Active Anxiety 2014- Unive rs ramide ty to 925 ity [...] Kidney disease [facility] Social History Social Habit Start Date Stop Date Quantity Comments Source History [facility] Alcohol Comment History of tobacco Smoker Method ist use Hospital History SDVT [facility] Frequency Hospita l History SDOH [facility] Alcohol Std Drinks Hospit al History SDOH [facility] Alcohol Binge Hospital Exposure to 2021-10-13 2021-10-23 Not sure University of SARS-CoV-2 (event) 00:00:00 20:05:00 [facility] Alcohol intake 2021-07-14 2021-07-14 Ex-drinker [facility] 00:00:00 00:00:00 (finding) Tobacco use and 2020-10-31 2020-10-31 Smokeless tobacco [place] [facility] exposure 00:00:00 00:00:00 non-user Cigarettes smoked 2020-09-05 2020-09-[address] current (pack per 00:00:00 00:00:00 Hospita l day) - Reported Cigarette 2020-09-05 2020-09-05 [facility] pack-years 00:00:00 00:00:00 Hospital Tobacco Comment 2015-02-14 2015-02-14 Smokes approx 1-2 Un iversity of 00:00:00 00:00:00 cigarettes per [place] [facility] day when she Branch smokes Sex [birth year] [facility] 00:00:00 00:00:00 Smoking Status Start Date Stop Date Source Former smoker 2020-08-06 00:00:00 2020-08-06 00:00:00 [facility] [place] [facility] Medications Ordered Filled Start Stop Current Ordering Indication Dosage Frequency Signature Comments Components Source Medication Medication Date Date Medication? Clinician (SIG) Name Name cefTRIAXone No 1000mg 1,000 mg, Univers (ROCEPHIN) 10-25 IV ity of 1,000 mg in 01:45: 01:18 [place], [place] NaCl 0.9% 00 :00 ONCE, 1 Medical (NS) 50 mL dose, On [facility] h MINI-BAG 10/24/21 at 2044, Administer over 30 Minutes, 50 mL
R jasmin for Anti-Infec tive: Documented Infection< br>Documen arpit Infection Site: Urine<br&g t;Duration of Therapy: Other (see Comments) ondansetron No 4mg 4 mg, Slow Univers (ZOFRAN 10-24 IV Push, ity of (PF)) 23:08: 23:11 ONCE, 1 [place] injection 4 00 :00 dose, On Medi porfirio mg 10/24/21 Branch at 1815, JOE morpHINE (4 No 4mg 4 mg, Slow Univers mg/mL) 10-24 IV Push, ity of injection 4 23:08: 23:11 ONCE, 1 [place] mg 00 :[place] dose, On Medical 10/24/21 Branch at 1815, STAT iopamidol 2021- No [id number] 70mL 70 mL, Univers (ISOVUE 10-24 Intravenou ity o f 370-500 mL) 22:30: 22:26 s, ONCE, 1 [place] injection 00 :00 dose, On Medica l 70 mL 10/24/21 Branch at 1730, Routine HYDROmorpho 2021- No 1mg 1 mg, [facility] ers ne 10-24 Intramuscu ity of (DILAUDID) 05:30: 04:32 lar, ONCE, [place] injection 1 00 :00 1 dose, On Me dical mg 10/24/21 Branch at 0030, JOE
Us e approved by (Faculty): ADC PROVIDER HYDROmorpho 2021- No 1mg 1 mg, [facility] ne 10-24 Intramuscu ity of (DILAUDID) 05:00: 04:03 lar, ONCE, [place] injection 1 00 :00 1 dose, On Me dical mg 10/24/21 Branch at 0000, JOE
Us e approved by (Faculty): ADC PROVIDER cephALEXin Yes [id number] 500mg Take 1 Univers (KEFLEX) 6-04 capsule by ity o f 500 mg 00:00: mouth 4 [place] capsule 00 (four) Medical times Branch daily. acetaminoph Yes [id number] 1{tbl} Take 1 Un matt en-codeine 6-04 tablet by ity of (TYLENOL-CO 00:00: mouth [place] DEINE #3) 00 every 4 Medical 300-30 mg (four) Branch tablet hours as needed for Pain (scale 7-10). Indication s: acute pain buPROPion Yes [id number] 150mg Take 1 U nivers XL 4-12 tablet by ity of (WELLBUTRIN 00:00: mouth [place] XL) 150 mg 00 daily. Medical 24 hr Branch tablet busPIRone Yes [id number] 30mg Take 1 Un matt 30 mg 4-12 tablet by ity of tablet 00:00: mouth 2 [place] 00 (two) Medical times Branch daily. SERTraline Yes [id number] 200mg Take 2 Univers 100 mg 4-12 tablets by ity of tablet 00:00: mouth [place] 00 daily. Medical Branch buPROPion 0 Yes [id number] 150mg Take 1 U nivers XL 4-12 tablet by ity of (WELLBUTRIN 00:00: mouth [place] XL) 150 mg 00 daily. Medical 24 hr Branch tablet busPIRone 2021-0 Yes [id number] 30mg Take 1 Un matt 30 mg 4-12 tablet by ity of tablet 00:00: mouth 2 [place] 00 (two) Medical times Branch daily. SERTraline 0 Yes [id number] 200mg Take 2 Univers 100 mg 4-12 tablets by ity of tablet 00:00: mouth [place] 00 daily. Medical Branch raltegravir Yes [id number] 400mg Take 1 Univers (ISENTRESS) 3-28 tablet by ity of 400 mg 00:00: mouth 2 [place] tablet 00 (two) Medical times Branch daily. raltegravir Yes [id number] 400mg Take 1 Univers (ISENTRESS) 3-28 tablet by ity of 400 mg 00:00: mouth 2 [place] tablet 00 (two) Medical times Branch daily. LORazepam 1 0 Yes [id number] 1mg Take 1 Univers mg tablet 3-21 tablet by ity o f 00:00: mouth 3 [place] 00 (three) Medical times Branch daily as needed (anxiety). LORazepam 1 2021-0 Yes [id number] 1mg Take 1 Univers mg tablet 3-21 tablet by ity o f 00:00: mouth 3 [place] 00 (three) Medical times Branch daily as needed (anxiety). raltegravir 0 Yes 400mg Q.5D Take 400 U T (Isentress) 2-22 mg by Health 400 MG 09:09: mouth 2 tablet 52 (two) times a day. furosemide 0 Yes 40mg Q.5D Take 40 mg U T (Lasix) 40 -08 by mouth 2 Hea lth MG tablet 00:00: (two) 00 times a day. promethazin 0 Yes 25mg Q.5D Take 25 mg UT e 2-08 by mouth 2 Health (Phenergan) 00:00: (two) 25 MG 00 times a tablet day. emtricitabi 0 Yes [id number] Take one Univers ne-tenofovi 1-20 po daily ity of r alafen 00:00: [place] (DESCOVY) 00 Medical tablet Branch emtricitabi Yes [id number] Take one Univers ne-tenofovi 1-20 po daily ity of r alafen 00:00: [place] (DESCOVY) 00 Medical tablet Branch metoprolol Yes [id number] Take 1 UT tartrate 7-26 tablet Health (Lopressor) 00:00: (100 mg 100 MG 00 total) by tablet mouth 2 (two) times a day AND 0.5 tablets (50 mg total) every night. metoprolol Yes [id number] Take 1 UT tartrate 7-26 tablet Health [...] 10:51: daily. Hospita tablet 25 l LORAZepam 0 [...] (affected area in groin) hydrALAZINE Yes 50mg Q.[id number] Take 50 mg Methodi (APRESOLINE 7-[id number] mouth [address] ) 50 MG [...] Hospita tablet 25 daily. l nystatin-tr Yes [id number] Apply to [facility] - area(s) 3 ity of cream 00:00: (three) [place] 00 times Medical daily. Branch nystatin-tr Yes [id number] Apply to [facility] 7-06 area(s) 3 ity of cream 00:00: (three) [place] 00 times Medical daily. Branch budesonide- 2020-0 2020- No 1{puff} QD Inhale 1 Methodi formoteroL 6-25 06-[address] (SYMBICORT) 14:37: 00:00 morning. H ospita 160-4.5 02 :00 l mcg/actuati on inhaler hydrALAZINE 2020-0 Yes [id number] 50mg Q.[id number] Take 1 UT (Apresoline 6-11 [id number] tablet (50 Health ) 50 MG 00:00: 3D mg total) tablet 00 by mouth 3 (three) times a day. hydrALAZINE 0 Yes [id number] 50mg Q.[id number] Take 1 UT (Apresoline 6-11 [id number] tablet (50 Health ) 50 MG 00:00: 3D mg total) tablet 00 by mouth 3 (three) times a day. Breztri 2020-0 Yes UT Aerosphere 6-09 Health 160-9-4.8 00:00: MCG/ACT 00 aerosol Breztri 2020-0 Yes [facility] Aerosphere 6-09 Health 160-9-4.8 00:00: MCG/ACT 00 aerosol albuterol 2020-0 Yes UT (2.5 6-02 Health MG/3ML) 00:00: 0.083% 00 nebulizer solution albuterol 2020-0 2- No UT (2.5 6-02 02-22 Health MG/3ML) 00:00: 00:00 0.083% 00 :00 nebulizer solution lisinopril 2020-0 Yes UT 40 MG 5-30 Health tablet 00:00: 00 sertraline 2020-0 Yes 200mg 200 mg. UT (Zoloft) 5-30 Health 100 MG 00:00: tablet 00 lisinopril 2020-0 Yes UT 40 MG 5-30 Health tablet 00:00: 00 sertraline 2020-0 2022- No 200mg 200 mg. UT (Zoloft) 5-30 02-22 Health 100 MG 00:00: 00:00 tablet 00 :00 mupirocin 2020-0 Yes UT (Bactroban) 5-28 Health 2 % 00:00: ointment 00 mupirocin 2020-0 Yes UT (Bactroban) 5-28 Health 2 % 00:00: ointment 00 nystatin 0 2020- No [id number] Q.25D Take 5 mL Methodi (MYCOSTATIN 5-17 [...] 00:00: 40 MG EC 00 tablet pantoprazol 40mg Q.5D Take 2 Met hodi e [...] e 4-10 Tablet l 14:00: should not [place] 00 be chewed or crushed. (Same as: Protonix) Amiodarone No Notes: Memor ia 4-10 (Same as: l 14:00: Cordarone) [place] Amlodipine No Notes: Memor ia 4-10 (Same [...] e 4-10 Tablet l 14:00: should not [place] 00 be chewed or crushed. (Same as: Protonix) Amiodarone No Notes: Memor ia 4-10 (Same as: l 14:00: Cordarone) [place] Amlodipine No Notes: Memor ia 4-10 (Same as: l 14:00: Norvasc) [place] emtricitabi No Notes: Caesar lisa ne 200 MG / 4-10 (Same as: l tenofovir 14:00: Descovy) Herm ariel alafenamide 00 Non-formul 25 MG Oral nancy Tablet [Descovy] Sertraline No Notes: Memor ia 4-10 (Same as: l 14:00: Zoloft) [place] pantoprazol No Notes: Caesar lisa e 4-10 Tablet l 14:00: should not Marty 00 be chewed or crushed. (Same as: Protonix) Amiodarone No Notes: Memor ia 4-10 (Same as: l 14:00: Cordarone) [place] Amlodipine No Notes: Memor ia 4-10 (Same as: l 14:00: Norvasc) [place] emtricitabi No Notes: Caesar lisa ne 200 MG / 4-10 (Same as: l tenofovir 14:00: Descovy) Herm ariel alafenamide 00 Non-formul 25 MG Oral nancy Tablet [Descovy] Sertraline No Notes: Memor ia 4-10 (Same as: l 14:00: Zoloft) [place] pantoprazol No Notes: Caesar lisa e 4-10 Tablet l 14:00: should not Marty 00 be chewed or crushed. (Same as: Protonix) Amiodarone No Notes: Memor ia 4-10 (Same as: l 14:00: Cordarone) [place] Amlodipine No Notes: Memor ia 4-10 (Same as: l 14:00: Norvasc) [place] emtricitabi No Notes: Caesar lisa ne 200 MG / 4-10 (Same as: l tenofovir 14:00: Descovy) Herm ariel alafenamide 00 Non-formul 25 MG Oral nancy Tablet [Descovy] Sertraline No Notes: Memor ia 4-10 (Same as: l 14:00: Zoloft) [place] pantoprazol No Notes: Caesar lisa e 4-10 Tablet l 14:00: should not [place] 00 be chewed or crushed. (Same as: [...] ia 4-10 (Same as: l 14:00: Zoloft) [place] pantoprazol No Notes: Caesar lisa e 4-10 [...] Memoria 4-10 Same as: l 02:00: Eliquis [place] Hydralazine No Notes: Caesar lisa Hydrochlori 4-10 [...] 0.9% 4-10 (Same as: l 02:00: BD [place] 00 Posiflush) Eliquis No Notes: Memoria 4-10 Same as: l 02:00: Eliquis [place] Hydralazine No Notes: Caesar lsia Hydrochlori 4-10 (Same as: l de 50 MG 02:00: Apresoline Her mitchell Oral Tablet 00 ) May interfere w/enteral feedings Take With Food Sucralfate No Notes: May M emoria 4-10 interfere l 02:00: w/enteral [place] 00 feeds - Take 1 hr before [...] 0.9% 4-10 (Same as: l 02:00: BD [place] 00 Posiflush) Eliquis No Notes: Memoria 4-10 Same as: l 02:00: Eliquis [place] Hydralazine No Notes: Caesar lisa Hydrochlori 4-10 [...] 0.9% 4-10 (Same as: l 02:00: BD [place] Posiflush) Eliquis No Notes: Memoria 4-10 Same as: l 02:00: Eliquis [place] 00 Hydralazine No Notes: Caesar lisa Hydrochlori 4-10 (Same as: l de 50 MG 02:00: Apresoline Her mitchell Oral Tablet 00 ) May interfere w/enteral feedings Take With Food Sucralfate No Notes: May M emoria 4-10 interfere l 02:00: w/enteral [place] 00 feeds - Take 1 hr before [...] not exceed l #3 00:12: 4gm/day of [place] acetaminop hen. (Same as: Tylenol with Codeine # 3) acetaminoph No Notes: Do M emoria en-codeine 4-10 not exceed l #3 00:12: 4gm/day of [place] acetaminop hen. (Same as: Tylenol with Codeine # 3) acetaminoph No Notes: Do M emoria en-codeine 4-10 not exceed l #3 00:12: 4gm/day of [place] acetaminop hen. (Same as: Tylenol with Codeine # 3) acetaminoph No Notes: Do M emoria en-codeine 4-10 not exceed l #3 00:12: 4gm/day of [place] acetaminop hen. (Same as: Tylenol with Codeine # 3) acetaminoph No Notes: Do M emoria en-codeine 4-10 not exceed l #3 00:12: 4gm/day of [place] acetaminop hen. (Same as: Tylenol with Codeine # 3) Buspirone No Notes: Memori a 4-09 (Same As: l 22:00: BuSpar) Lisinopril No 40 mg, 1 Mem oria 4-09 tab, l 22:00: Route: PO, [place] Drug form: TAB, BID, Dosing Weight 97.273, kg, Start date: 08/29/20 17:00:00 CDT, Duration: 30 day, Stop date: 09/28/20 9:00:00 CDT metoprolol No 100 mg, 1 Me moria tartrate 4-09 tab, l 22:00: Route: PO, [place] Drug form: TAB, BID, Dosing Weight 97.273, [...] oria 4-09 tab, l 22:00: Route: PO, [place] Drug form: TAB, BID, Dosing Weight 97.273, kg, Start date: 08/29/20 17:00:00 CDT, Duration: 30 day, Stop date: 09/28/20 9:00:00 CDT metoprolol 2021-0 No 100 mg, 1 Me moria tartrate 4-09 tab, l 22:00: Route: PO, [place] 00 Drug form: TAB, BID, Dosing Weight [...] tartrate 4-09 tab, l 22:00: Route: PO, [place] 00 Drug form: TAB, BID, Dosing Weight [...] - (Same As: l 22:00: BuSpar) Lisinopril 2021-0 No 40 mg, 1 Mem oria 4-09 tab, l 22:00: Route: PO, Marty 00 Drug form: TAB, BID, Dosing Weight 97.273, kg, Start date: 08/29/20 17:00:00 CDT, Duration: 30 day, Stop date: 09/28/20 9:00:00 CDT metoprolol 2021-0 No 100 mg, 1 Me moria tartrate 4-09 tab, l 22:00: Route: PO, [place] 00 Drug form: TAB, BID, Dosing Weight [...] tartrate 4-09 tab, l 22:00: Route: PO, [place] 00 Drug form: TAB, BID, Dosing Weight [...] a 4- (Same As: l 22:00: BuSpar) [place] 00 Lisinopril No 40 mg, 1 Mem oria 4- tab, l 22:00: Route: PO, [place] Drug form: TAB, BID, Dosing Weight 97.273, kg, Start date: 08/29/20 17:00:00 CDT, Duration: 30 day, Stop date: 09/28/20 9:00:00 CDT metoprolol No 100 mg, 1 Me moria tartrate 4- tab, l 22:00: Route: PO, [place] 00 Drug form: TAB, BID, Dosing Weight [...] Notes: Memoria 4-09 (Same l 17:07: as:MORPhin [place] 00 e Sulfate) Morphine No Notes: Memoria [...] 17:07: as:MORPhin [place] 00 e Sulfate) Morphine 1-0 No Notes: Memoria 08-29 (Same l 17:07: as:MORPhin [place] 00 e Sulfate) buPROPion 2021-0 No 150 [...] ONCE, Stop date: 08/29/20 10:40:00 CDT fentaNYL 1-0 No Route: IV, Mem oria (ANES) 08-29 Drug form: l 15:40: INJ, ONCE, Stop date: 08/29/20 10:40:00 CDT pantoprazol 2020-0 Yes 40 mg = 1 M emoria e 40 mg 4-09 tab, PO, l oral 15:27: Daily, # [place] enteric 00 30 tab, 0 coated Refill(s), tablet Pharmacy: [facility] 149, 162.56, cm, 08/29/20 5:30:00 CDT, Height, 97.273, kg, 08/29/20 5:30:00 CDT, Weight pantoprazol 2020-0 Yes 40 mg = 1 M emoria e 40 mg 4-09 tab, PO, l oral 15:27: Daily, # Marty enteric 00 30 tab, 0 coated Refill(s), tablet Pharmacy: [facility] 149, 162.56, cm, 08/29/20 5:30:00 CDT, Height, 97.273, kg, 08/29/20 5:30:00 CDT, Weight pantoprazol 1-0 Yes 40 mg = 1 M emoria e 40 mg 4-09 tab, PO, l oral 15:27: Daily, # [place] enteric 00 30 tab, 0 coated Refill(s), tablet Pharmacy: [facility] 149, 162.56, cm, 08/29/20 5:30:00 CDT, Height, 97.273, kg, 08/29/20 5:30:00 CDT, Weight pantoprazol 1-0 Yes 40 mg = 1 M emoria e 40 mg 4-09 tab, PO, l oral 15:27: Daily, # [place] enteric 00 30 tab, 0 coated Refill(s), tablet Pharmacy: [facility] 149, 162.56, cm, 08/29/20 5:30:00 CDT, Height, 97.273, kg, 08/29/20 5:30:00 CDT, Weight pantoprazol 2020-0 Yes 40 mg = 1 M emoria e 40 mg 4-09 tab, PO, l oral 15:27: Daily, # Marty enteric 00 30 tab, 0 coated Refill(s), tablet [facility]: [facility], 162.56, cm, 08/29/20 5:30:00 CDT, Height, 97.273, kg, 08/29/20 5:30:00 CDT, Weight pantoprazol 2020-0 Yes 40 mg = 1 M emoria e 40 mg 4-09 tab, PO, l oral 15:27: Daily, # Marty enteric 00 30 tab, 0 coated Refill(s), tablet Pharmacy: [facility] 149, 162.56, cm, 08/29/20 5:30:00 CDT, Height, 97.273, kg, 08/29/20 5:30:00 CDT, Weight pantoprazol 2020-0 Yes 40 mg = 1 M emoria e 40 mg 4-09 tab, PO, l oral 15:27: Daily, # Marty enteric 00 30 tab, 0 coated Refill(s), tablet Pharmacy: [facility] 149, 162.56, cm, 08/29/20 5:30:00 CDT, Height, [...] Skylar nn 00 tab, 0 Refill(s), [facility], 162.56, cm, 08/29/20 5:30:00 CDT, Height, 97.273, kg, 08/29/20 5:30:00 CDT, Weight pantoprazol 1-0 No 40 mg = 1 M emoria e 40 mg 4-09 tab, PO, l oral 15:26: Daily, # [place] enteric 00 30 tab, 0 coated Refill(s) tablet sucralfate 2020-0 Yes 1 gm = 1 Mem oria 1 g oral 4-09 tab, PO, l tablet 15:26: Q12H, # 28 Skylar nn 00 tab, 0 Refill(s), Pharmacy: [facility] 149, 162.56, cm, 08/29/20 5:30:00 CDT, Height, 97.273, kg, 08/29/20 5:30:00 CDT, Weight pantoprazol 2020-0 No 40 mg = 1 M emoria e 40 mg 4-09 tab, PO, l oral 15:26: Daily, # [place] enteric 00 30 tab, 0 coated Refill(s) tablet sucralfate 2020-0 Yes 1 gm = 1 Mem oria 1 g oral 4-09 tab, PO, l tablet 15:26: Q12H, # 28 Skylar nn 00 tab, 0 Refill(s), Pharmacy: [place] [id number], 162.56, cm, 08/29/20 5:30:00 CDT, Height, 97.273, [...] Skylar nn 00 tab, 0 Refill(s), Pharmacy: [facility] 149, 162.56, cm, 08/29/20 5:30:00 CDT, Height, [...] Skylar nn 00 tab, 0 Refill(s), Pharmacy: [facility] 149, 162.56, cm, 08/29/20 5:30:00 CDT, Height, 97.273, kg, 08/29/20 5:30:00 CDT, Weight pantoprazol No 40 mg = 1 M emoria e 40 mg 4-09 tab, PO, l oral 15:26: Daily, # [place] enteric 00 30 tab, 0 coated Refill(s) tablet sucralfate Yes 1 gm = 1 Mem oria 1 g oral 4-09 tab, PO, l tablet 15:26: Q12H, # 28 Skylar nn 00 tab, 0 Refill(s), Pharmacy: [facility] 149, 162.56, cm, 08/29/20 5:30:00 CDT, Height, [...] Skylar nn 00 tab, 0 Refill(s), Pharmacy: [facility] 149, 162.56, cm, 08/29/20 5:30:00 CDT, Height, [...] 0.9% 4-09 (Same as: l 15:25: BD [place] 00 Posiflush) Saline No Notes: Memoria Flush 0.9% 4-09 (Same as: l 15:25: BD [place] 00 Posiflush) Lorazepam No Notes: Memori a 4-09 (Same as: l 15:25: Ativan) Lorazepam No Notes: Memori a 4-09 (Same as: l 15:25: Ativan) Marty 00 Saline No Notes: Memoria Flush 0.9% 4-09 (Same as: l 15:25: BD [place] 00 Posiflush) Lorazepam No Notes: Memori a 4-09 (Same as: l 15:25: Ativan) Saline No Notes: Memoria Flush 0.9% 4-09 (Same as: l 15:25: BD [place] 00 Posiflush) Lorazepam No Notes: Memori a 4-09 (Same as: l 15:25: Ativan) Saline No Notes: Memoria Flush 0.9% 4-09 (Same as: l 15:25: BD [place] 00 Posiflush) Lorazepam No Notes: Memori a 4-09 (Same as: l 15:25: Ativan) Isuprel HCl No Route: IV, Memoria (ANES) 0.2 4- Drug form: l mg + 15:00: INJ, [place] 00 Dosing Weight 97.3, kg, Start date: 08/29/20 10:00:00 CDT, Stop date: 08/29/20 11:00:00 CDT Isuprel HCl No Route: IV, Memoria (ANES) 0.2 4- Drug form: l mg + 15:00: INJ, Marty Dosing Weight 97.3, kg, Start date: 08/29/20 10:00:00 CDT, Stop date: 08/29/20 11:00:00 CDT Isuprel HCl 2021-0 No Route: IV, Memoria [...] 08-29 Route: PO, l 14:01: Drug form: [place] 00 TAB, ONCE, Dosing Weight 97.273, kg, [...] oria ne 08-29 Route: l 14:01: IVP, [place] 00 Q5Min, Dosing Weight 97.273, kg, PRN [...] Memori a 08-29 Route: l 14:01: IVP, [place] 00 Q5Min, Dosing Weight 97.273, kg, PRN Elevated BP, Start date: 08/29/20 9:01:00 CDT, Duration: 5 doses or times, Stop date: Limited # of times Acetaminoph 2021-0 No 1,000 mg, M emoria en 08-29 Route: PO, l 14:01: Drug form: [place] 00 TAB, ONCE, Dosing Weight 97.273, kg, [...] oria ne 08-29 Route: l 14:01: IVP, [place] 00 Q5Min, Dosing Weight 97.273, kg, PRN [...] ia 08-29 Route: l 14:01: IVP, ONCE, [place] 00 Dosing Weight 97.273, kg, PRN Nausea & Vomiting, Start date: 08/29/20 9:01:00 CDT Labetalol 1-0 No 10 mg, Memori a 08-29 Route: l 14:01: IVP, [place] 00 Q5Min, Dosing Weight 97.273, kg, PRN Elevated BP, Start date: 08/29/20 9:01:00 CDT, Duration: 5 doses or times, Stop date: Limited # of times Acetaminoph 1-0 No 1,000 mg, M emoria en 08-29 Route: PO, l 14:01: Drug form: [place] 00 TAB, ONCE, Dosing Weight 97.273, kg, [...] ia 08-29 Route: l 14:01: IVP, ONCE, [place] 00 Dosing Weight 97.273, kg, PRN Nausea & Vomiting, Start date: 08/29/20 9:01:00 CDT Labetalol 2021-0 No 10 mg, Memori a 08-29 Route: l 14:01: IVP, [place] 00 Q5Min, Dosing Weight 97.273, kg, PRN Elevated BP, Start date: 08/29/20 9:01:00 CDT, Duration: 5 doses or times, Stop date: Limited # of times Acetaminoph 1-0 No 1,000 mg, M emoria en 08-29 Route: PO, l 14:01: Drug form: [place] 00 TAB, ONCE, Dosing Weight 97.273, kg, [...] Memori a 08-29 Route: l 14:01: IVP, Chandler 00 Q5Min, Dosing Weight 97.273, kg, PRN Elevated BP, Start date: 08/29/20 9:01:00 CDT, Duration: 5 doses or times, Stop date: Limited # of times Acetaminoph 2021-0 No 1,000 mg, M emoria en 08-29 Route: PO, l 14:01: Drug form: Chandler 00 TAB, ONCE, Dosing Weight 97.273, kg, [...] ia 08-29 Route: l 14:01: IVP, ONCE, Chandler 00 Dosing Weight 97.273, kg, PRN Nausea [...] 08-29 Route: PO, l 14:01: Drug form: Chandler 00 TAB, ONCE, Dosing Weight 97.273, kg, [...] Memori a 08-29 Route: l 14:01: IVP, Chandler 00 Q2MIN, Dosing Weight 97.273, kg, PRN [...] lisa 08-29 Route: l 14:01: IVP, PRN, Chandler Dosing Weight 97.273, kg, PRN Benzodiaze pine Reversal, Initial dose, Start date: 08/29/20 9:01:00 CDT, Duration: 30 day, Stop date: 09/28/20 9:00:00 CDT Naloxone 2020-0 No 0.4 mg, Memori a 08-29 Route: l 14:01: IVP, Chandler 00 Q2MIN, Dosing Weight 97.273, kg, PRN [...] 08-29 Drug form: l 13:42: INJ, ONCE, Chandler Stop date: 08/29/20 8:42:00 CDT fentaNYL 2020-0 No Route: IV, Mem oria (ANES) 08-29 Drug form: l 13:42: INJ, ONCE, Marty Stop date: 08/29/20 8:42:00 CDT norepinephr 2020-0 No Route: IV, Memoria ine (ANES) 08-29 Drug form: l 10 13:15: INJ, Start Chandler microgram date: 08/29/20 8:15:00 CDT, Stop date: [...] Drug form: l 10 13:15: INJ, Start Chandler microgram date: 08/29/20 8:15:00 CDT, Stop date: 08/29/20 9:15:00 CDT norepinephr 2020-0 No Route: IV, Memoria ine (ANES) 08-29 Drug form: l 10 13:15: INJ, Start Chandler microgram 00 date: 08/29/20 8:15:00 CDT, Stop [...] 4-09 Total l 0.9% IV 12:30: Volume: Chandler (ANES) 1000 00 1,000, mL Start date: 08/29/20 7:30:00 CDT, Stop date: 08/29/20 8:30:00 CDT Sodium 2020-0 No Route: IV, Memor ia Chloride 4-09 Total l 0.9% IV 12:30: Volume: Chandler (ANES) 1000 00 1,000, mL Start date: 08/29/20 7:30:00 CDT, Stop date: 08/29/20 8:30:00 CDT Sodium 2020-0 No Route: IV, Memor ia Chloride 4-09 Total l 0.9% IV 12:30: Volume: Chandler (ANES) 1000 00 1,000, mL Start date: 08/29/20 7:30:00 CDT, Stop date: 08/29/20 8:30:00 CDT Sodium 2020-0 No Route: IV, Memor ia Chloride 4-09 Total l 0.9% IV 12:30: Volume: Marty (ANES) 1000 00 1,000, mL Start date: 08/29/20 7:30:00 CDT, Stop date: 08/29/20 8:30:00 CDT Sodium 2020-0 No Route: IV, Memor ia Chloride 4-09 Total l 0.9% IV 12:30: Volume: Chandler (ANES) 1000 00 1,000, mL Start date: 08/29/20 7:30:00 CDT, Stop date: 08/29/20 8:30:00 CDT Sodium 2020-0 No Route: IV, Memor ia Chloride 4-09 Total l 0.9% IV 12:30: Volume: Chandler (ANES) 1000 00 1,000, mL Start date: 08/29/20 7:30:00 CDT, Stop date: 08/29/20 8:30:00 CDT Sodium 2020-0 No Route: IV, Memor ia Chloride 4-09 Total l 0.9% IV 12:30: Volume: Chandler (ANES) 1000 00 1,000, mL Start date: [...] n 00 tab, 0 Refill(s) 24 HR 0 Yes 150 mg = 1 Memori a Bupropion 4-09 tab, PO, l Hydrochlori 11:42: Q24H, # 30 Marty de 150 MG 00 tab, 0 Extended Refill(s) Release Tablet 24 HR Yes 150 mg = 1 Memori a Bupropion 4-09 tab, PO, l Hydrochlori 11:42: Q24H, # 30 Chandler de 150 MG 00 tab, 0 Extended Refill(s) Release Tablet 24 HR Yes 150 mg = 1 Memori a Bupropion 4-09 tab, PO, l Hydrochlori 11:42: Q24H, # 30 Chandler de 150 MG 00 tab, 0 Extended Refill(s) Release Tablet 24 HR Yes 150 mg = 1 Memori a Bupropion 4-09 tab, PO, l Hydrochlori 11:42: Q24H, # 30 Marty de 150 MG 00 tab, 0 Extended Refill(s) Release Tablet 24 HR Yes 150 mg = 1 Memori a Bupropion 4-09 tab, PO, l Hydrochlori 11:42: Q24H, # 30 Chandler de 150 MG 00 tab, 0 Extended Refill(s) Release Tablet 24 HR Yes 150 mg = 1 Memori a Bupropion 4-09 tab, PO, l Hydrochlori 11:42: Q24H, # 30 Marty de 150 MG 00 tab, 0 Extended Refill(s) Release Tablet 24 HR Yes 150 mg = 1 Memori a Bupropion 4-09 tab, PO, l Hydrochlori 11:42: Q24H, # 30 Chandler de 150 MG 00 tab, 0 Extended Refill(s) Release Tablet apixaban 0 Yes 5 mg, PO, Me moria MG Oral 4- Q12H, tab, l Tablet 11:41: 0 Marty [Eliquis] 00 Refill(s), For Atrial Fibrilatio n apixaban 2020-0 Yes 5 mg, PO, Me moria MG Oral 4- Q12H, tab, l Tablet 11:41: 0 Chandler [Eliquis] 00 Refill(s), For Atrial Fibrilatio n apixaban 2020-0 Yes 5 mg, PO, Me moria MG Oral 4- Q12H, tab, l Tablet 11:41: 0 Chandler [Eliquis] 00 Refill(s), For Atrial Fibrilatio n apixaban 5 2020-0 Yes 5 mg, PO, Me moria MG Oral 4 Q12H, tab, l Tablet 11:41: 0 Chandler [Eliquis] 00 Refill(s), For Atrial Fibrilatio n apixaban 5 2020-0 Yes 5 mg, PO, Me moria MG Oral 08-29 Q12H, tab, l Tablet 11:41: 0 Marty [Eliquis] 00 Refill(s), For Atrial Fibrilatio n apixaban 5 2020-0 Yes 5 mg, PO, Me moria MG Oral - Q12H, tab, l Tablet 11:41: 0 Chandler [Eliquis] 00 Refill(s), For Atrial Fibrilatio n apixaban 5 2020-0 Yes 5 mg, PO, Me moria MG Oral - Q12H, tab, l Tablet 11:41: 0 Chandler [Eliquis] 00 Refill(s), For Atrial Fibrilatio n AMIODarone 2020-0 Yes 200 mg = 1 M emoria 200 mg oral 4-09 tab, PO, l tablet 11:38: Daily, # Marty 00 90 tab, 3 Refill(s) AMIODarone 2020-0 Yes 200 mg = 1 M emoria 200 mg oral -09 tab, PO, l tablet 11:38: Daily, # Chandler 00 90 tab, 3 Refill(s) AMIODarone 2020-0 [...] tab, PO, l tablet 11:38: Daily, # Chandler 00 90 tab, 3 Refill(s) AMIODarone 2020-0 Yes 200 mg = 1 M emoria 200 mg oral 4-09 tab, PO, l tablet 11:38: Daily, # Marty 00 90 tab, 3 Refill(s) AMIODarone Yes 200 mg = 1 M emoria 200 mg oral 4-09 tab, PO, l tablet 11:38: Daily, # Chandler 00 90 tab, 3 Refill(s) normal 0 [...] l Eliquis 5 Yes Methodi mg tablet -27 st 00:00: [facility]osp[facility] 00 l apixaban Yes 5mg Take 5 mg Univ ers (ELIQUIS) 5 3-17 by mouth 2 it y of mg tablet 08:18: (two) [place] 30 times Medical daily. Branch amiodarone Yes 100mg Take 100 Un matt 100 mg 3-17 mg by ity of tablet 08:18: mouth [place] 30 daily. Medical Branch apixaban Yes 5mg Take 5 mg Univ ers (ELIQUIS) 5 3-17 by mouth 2 it y of mg tablet 08:18: (two) [place] 30 times Medical daily. Branch amiodarone Yes [...] Health MG tablet 00:00: tablet 00 hydralAZINE 2019- Yes 25mg Take 25 mg [...] mouth ity of 10 mg 08:06: daily. [place] tablet 41 Medical Branch esomeprazol 2019- Yes 40mg Take 40 mg Univers e (NEXIUM) 0-12 by mouth 2 ity of 40 mg 08:06: (two) [place] capsule 41 times Medical daily. Branch hydralAZINE 2019-05 Yes 25mg Take 25 mg Univers (APRESOLINE 0-12 by mouth ity of ) 25 mg 08:06: daily. [place] tablet 41 Medical Branch lisinopril 2019-05 Yes [...] mouth ity of 10 mg 08:06: daily. [place] tablet 41 [facility] Branch esomeprazol 2019-05 Yes 40mg Take 40 mg Univers e (NEXIUM) 0-12 by mouth 2 ity of 40 mg 08:06: (two) [place] capsule 41 times Medical daily. Branch albuterol Yes Univers 90 4-14 ity of mcg/actuati 00:00: [place] on inhaler 00 Medical Branch albuterol 0 Yes Univers 90 4-14 ity of mcg/actuati 00:00: [place] on inhaler 00 Medical Branch albuterol 0 Yes albuterol [place] (2.5 2-11 [...] Ordered Filled Immunization Date Status Comments [facility] e Immunization Name Name PFIZER COVID-19 2020-07-23 Completed [facility] MRNA VACCINATION 00:00:00 [facility] PFIZER COVID-19 2020-07-02 Completed [facility] MRNA VACCINATION 00:00:00 [facility] Influenza Virus 2017-03-08 Completed Universit y of Vaccine 00:00:00 [facility] Influenza Virus 2017-03-08 Completed Universit y of Vaccine 00:00:00 [facility] Influenza Virus 2014-01-30 Completed Universit y of Vaccine (3+ yrs) 00:00:00 [facility] dical Branch Pneumococcal 13 2014-01-30 Completed Universit y of Conjugate, PCV13 00:00:00 [facility] dical (Prevnar 13) [place] Influenza Virus 2014-01-30 Completed Universit y of Vaccine (3+ yrs) 00:00:00 [facility] dical Branch Pneumococcal 13 2014-01-30 Completed Universit y of Conjugate, PCV13 00:00:00 [facility] dical (Prevnar 13) Branch Pneumococcal 2012-02-16 Completed University o f Polysaccharide, 00:00:00 [place] Med ical PPSV23 (PNEUMOVAX) Branch Influenza Virus 2012-02-16 Completed Universit y of Vaccine 00:00:00 [facility] PPD (TB) 2012-02-16 Completed University of 00:00:00 [facility] Pneumococcal 2012-02-16 Completed University o f Polysaccharide, 00:00:00 [place] Med ical PPSV23 (PNEUMOVAX) Branch Influenza Virus 2012-02-16 Completed Universit y of Vaccine 00:00:00 [facility] PPD (TB) 2012-02-16 Completed University of 00:00:00 [facility] Hep B, Adol or Pedi 2011-09-01 Completed Unive rsity of Dosage 00:00:00 [facility] Hep B, Adol or Pedi 2011-09-01 Completed Unive rsity of Dosage 00:00:00 [facility] Hep B, Adol or Pedi 2011-03-17 Completed Unive rsity of Dosage 00:00:00 [facility] Hep B, Adol or Pedi 2011-03-17 Completed Unive rsity of Dosage 00:00:00 [facility] Influenza Virus 2011-02-10 Completed Universit y of Vaccine 00:00:00 [facility] Hep B, Adol or Pedi 2011-02-10 Completed Unive rsity of Dosage 00:00:00 [facility] Influenza Virus 2011-02-10 Completed Universit y of Vaccine 00:00:00 [facility] Hep B, Adol or Pedi 2011-02-10 Completed Unive rsity of Dosage 00:00:00 [facility] PPD (TB) 2010-11-18 Completed University of 00:00:00 [facility] TDAP (ADACEL) 2010-11-18 Completed University of VACCINE 00:00:00 [facility] PPD (TB) 2010-11-18 Completed University of 00:00:00 [facility] TDAP (ADACEL) 2010-11-18 Completed University of VACCINE 00:00:00 [facility] HEPATITIS A 2004-03-02 Completed University of 00:00:00 [facility] HEPATITIS A 2004-03-02 Completed University of 00:00:00 [facility] HEPATITIS A 2003-08-01 Completed University of 00:00:00 [facility] HEPATITIS A 2003-08-01 Completed University of 00:00:00 [facility] Pneumococcal 2001-10-04 Completed University o f Polysaccharide, 00:00:00 [place] Med ical PPSV23 (PNEUMOVAX) Branch PPD (TB) 2001-10-04 Completed University of 00:00:00 [facility] Pneumococcal 2001-10-04 Completed University o f Polysaccharide, 00:00:00 [place] Med ical PPSV23 (PNEUMOVAX) Branch PPD (TB) 2001-10-04 Completed University of 00:00:00 [facility] Vital Signs Vital Name Observation Time Observation Value Comments Source Systolic blood 2021-10-25 01:00:00 153 mm[Hg] Univer sity of pressure [facility] Diastolic blood 2021-10-25 01:00:00 81 mm[Hg] Unive rsity of [facility] Heart rate 2021-10-25 01:00:00 65 /min [facility] Respiratory rate 2021-10-25 01:00:00 17 /[facility] saturation in 2021-10-25 01:00:00 97 /min University of Arterial blood by [place] [employer] porfirio Pulse oximetry Branch Body temperature 2021-10-24 21:25:00 36.78 Amina [facility] Body weight 2021-10-24 21:25:00 95.255 kg [facility] BMI 2021-10-24 21:25:00 36.05 kg/m2 [facility] Systolic blood 2021-10-24 05:02:00 150 mm[Hg] Univer sity of [facility] Diastolic blood 2021-10-24 05:02:00 97 mm[Hg] Unive rsity of pressure [facility] Heart rate 2021-10-24 05:02:00 68 /min [facility] Respiratory rate 2021-10-24 05:02:00 15 /min [facility] saturation in 2021-10-24 05:02:00 96 /min University of Arterial blood by [place] [employer] porfirio Pulse oximetry Branch Body temperature 2021-10-24 01:06:00 36.06 Amina [facility] Body height 2021-10-24 01:06:00 162.6 cm [facility] Body weight 2021-10-24 01:06:00 95.255 kg [facility] BMI 2021-10-24 01:06:00 36.05 kg/m2 [facility] Systolic blood 2021-07-14 15:18:00 142 mm[facility]Hg[facility] Diastolic blood 2021-07-14 15:18:00 76 mm[facility]Hg[facility] Heart rate 2021-07-14 15:18:00 61 [facility] Body height 2021-07-14 15:18:00 [facility]6 [facility] 2021-07-14 15:18:00 94.802 kg [facility] BMI 2021-07-14 15:18:00 35.87 kg/m2 [facility] Systolic blood 2020-12-08 15:48:00 125 mm[Hg] Method [facility] pressure Diastolic blood 2020-12-08 15:48:00 76 mm[Hg] [facility] pressure Heart rate 2020-12-08 15:48:00 64 /min [facility] Body temperature 2020-12-08 15:48:00 36.61 Amina [facility] Respiratory rate 2020-12-08 15:48:00 17 /min [facility] Body height 2020-12-08 15:48:00 162.6 cm [facility] Body weight 2020-12-08 15:48:00 98.884 kg [facility] BMI 2020-12-08 15:48:00 37.42 kg/m2 [facility] Oxygen saturation in 2020-12-08 15:48:00 97 /min [facility] Arterial blood by Pulse oximetry Respitory Rate 2020-08-30 13:00:00 Memori al Chandler Systolic (mm Hg) 2020-08-30 13:00:00 Caesar rial Marty Diastolic (mm Hg) 2020-08-30 13:00:00 Mem orial Chandler Systolic (mm Hg) 2020-08-30 11:00:00 Caesar rial Chandler Diastolic (mm Hg) 2020-08-30 11:00:00 Mem orial Marty Temperature Oral (F) 2020-08-30 11:00:00 98.4 F [facility] Respitory Rate 2020-08-30 11:00:00 Memori al Marty Respitory Rate 2020-08-30 10:00:00 Memori al Marty Systolic (mm Hg) 2020-08-30 10:00:00 Caesar riamabel Matry Diastolic (mm Hg) 2020-08-30 10:00:00 Mem orial Chandler Temperature Oral (F) 2020-08-30 00:00:00 96.9 F [facility] Temperature Oral (F) 2020-08-29 11:26:00 97.6 F [facility] Height 2020-08-29 10:30:00 162.56 cm [facility] Weight 2020-08-29 10:30:00 [facility] BMI Calculated 2020-08-29 10:30:00 [place] andre Chandler Procedures Procedure Date / Time Performing Clinician Source Performed URINALYSIS 2021-10-24 23:15:00 Reilly Means [facility] CT LUMBAR SPINE WO 2021-10-24 22:42:12 Reilly Means [facility] CONTRAST [facility] CT ANGIOGRAM 2021-10-24 22:42:12 Reilly Means [facility] ABDOMEN/PELVIS [facility] COMP. METABOLIC PANEL 2021-10-24 22:09:00 Reilly Means [facility] ([id number]) [facility] CBC WITH DIFF 2021-10-24 22:09:00 Reilly Means [facility] PROTHROMBIN TIME / INR 2021-10-24 22:09:00 Reilly Means [facility] ACTIVATED PARTIAL THRMPLAS 2021-10-24 22:09:00 Reilly Means [facility] acute hospital CONSENT/REFUSAL FOR 2021-10-24 21:20:36 Doctor Unassigned, [facility] DIAGNOSIS AND TREATMENT [place] [facility] URINALYSIS 2021-10-24 04:48:00 Charity Mcallister [facility] XR LUMBAR SPINE 3 VW 2021-10-24 04:20:48 Charity Mcallister [facility] BASIC METABOLIC PANEL (NA, 2021-10-24 03:24:00 Charity Mcallister [facility] K, CL, CO2, GLUCOSE, BUN, Medica l Branch CREATININE, CA) CBC WITH DIFF 2021-10-24 03:24:00 Charity Mcallister [facility] BLOOD CULTURE SCREEN 2021-10-24 03:24:00 Charity Mcallister [facility] NOTICE OF PRIVACY 2021-10-24 00:58:14 Doctor Unassigned, [facility] PRACTICES [place] [facility] CONSENT/REFUSAL FOR 2021-10-24 00:57:32 Doctor Unassigned, [facility] DIAGNOSIS AND TREATMENT [place] [facility] ECG 12-LEAD 2021-07-14 15:14:00 Elan Lira [facility] [id number] 2021-06-17 00:00:00 RIKY [facility] GASTROINTESTINAL PANEL 2020-12-08 22:21:00 Eliseo Glaser [facility] XR ABDOMEN 1 VW 2020-12-08 18:06:32 Eliseo Glaser spital OR [place] < 1 HOUR 2020-09-05 22:39:00 Eliseo Glaser spital SURGICAL PATHOLOGY REQUEST 2020-09-05 21:54:00 Eliseo Glaser [facility] XR CHEST 1 VW PORTABLE 2020-09-05 19:55[facility] DIS[facility]GE PATIENT 2020-09-05 17:27:[address] [facility] [place] AN ELECTIVE 2020-09-05 16:47:23 [facility]GD, INTRAOPERATIVE 2020-09-05 16:27:00 [facility] 2020-09-05 15:04:00 Sarai Maharaj [facility] TIME (PTT) M. PROTHROMBIN TIME WITH INR 2020-09-05 15:04:[address] [facility] M. Plan of Care Planned Activity Planned Date Details Comments Source Future Scheduled 2021-08-[address] [facility] Test 13:02:23 malignant neoplasm of cervix (procedure) [code = 845811071] Future Scheduled 2021-08-[address] [facility] Test 13:02:23 SCREENING [code = BREAST CANCER SCREENING] Future Scheduled 2021-08-26 COLONOSCOPY SCREENING [facility] Test 13:02:23 [code = COLONOSCOPY SCREENING] Future Scheduled 2021-08-[address] [facility] Test 13:02:23 malignant neoplasm of lung (procedure) [code = 275752163] Future Scheduled 2021-08-26 SHINGLES VACCINES (#1) [facility] Test 13:02:23 [code = SHINGLES VACCINES (#1)] Future Scheduled 2021-08-26 COVID-19 VACCINE (3 - [facility] Test 13:02:23 Pfizer risk 4-dose series) [code = COVID-19 VACCINE (3 - Pfizer risk 4-dose series)] Future Scheduled 2021-08-26 65+ PNEUMOCOCCAL [facility] Test 13:02:23 VACCINE (4 of 4 - PPSV23) [code = 65+ PNEUMOCOCCAL VACCINE (4 of 4 - PPSV23)] Future Scheduled 2021-08-26 INFLUENZA VACCINE [facility] Test 13:02:23 [code = INFLUENZA VACCINE] Encounters Start End Encounter Admission Attending Care Care Encounter Source Date/Time Date/Time Type Type Clinicians Facility Department ID 2021-08-03 Inpatient WINTER Lund OUTD [id number] [facility] 11:30:00 Mike [id number] [facility] 2021-07-14 Outpatient JENNY [facility] [id number] [place] 09:33:51 [facility] 2021-06-16 Inpatient EDUARDO LealCL OUTD [id number] [facility] 08:30:00 Mike [id number] [facility] 2021-06-15 Inpatient WINTER Leal OUTD [id number] 10:30:00 Mike [id number] [facility] 2021-10-24 2021-10-24 Emergency David MCALLISTER IACAMDEN ERT [id number] Univers 16:27:00 22:26:00 CHARITY barbosa [facility] 2021-10-24 2021-10-[address] [facility] 1.2.840. 114 [id number] Univers 16:27:00 22:26:00 Charity Mcallister [place] [id number] ity [facility] [id number] [facility] [id number] [address] 2021-10-23 2021-10-24 [facility] [id number] Univers 20:22:00 02:57:00 Charity [facility] [id number] ity of [facility] [id number] [facility] [id number] [place] [address] Branch 2021-10-23 2021-10-24 Emergency [facility] [id number] Univers 20:22:00 02:57:00 RENEEADDYALMA DELIA ity [facility] 2021-08-05 2021-08-05 Outpatient RAUL StoneWINTER vega HCACL [id number] [facility] 05:24:00 05:24:00 Mike 31 [facility] 2021-08-05 2021-08-05 Outpatient RAUL Chasegary, EDUARDOCL OUTD [id number] [facility] 05:24:00 05:24:00 Mike [id number] [facility] 2021-07-14 2021-07-14 Office KIMBERLEY Lira 6400 1.2.840.114 [id number] [place] 08:45:00 09:34:[address] [id number] Health 9.2.7.2.686 [id number] 2021-07-09 2021-07-09 Telephone Kinjal, KIMBERLEY 6400 1.2.840.114 [id number] [place] 00:00:00 00:00:[address] [id number] Health 9.2.7.2.686 [id number] 1 2021-06-17 2021-06-17 Inpatient EDUARDO LealCL INTE.02 [id number] [facility] 10:56:00 14:36:00 Mike [id number] [facility] 2021-06-17 2021-06-17 Inpatient RAUL Lund, EDUARDOCL INTE.02 [id number] [facility] 10:56:00 14:36:00 Mike 47 [facility] 2021-04-28 2021-04-28 Telephone Yazmin, 1.2.840.6 [id number] Methodi 00:00:00 00:00:[address] 3.430.2.7 Hospit a .3.089040 l .8 2021-03-31 2021-03-31 Orders Carol Ann, 1.2.840.1 [id number] Methodi 00:00:00 00:00:00 Only Sarai Lieberman 70934.1.1 979 s t 3.430.2.7 Hospit a .3.835959 l .8 2021-03-24 2021-03-24 Telephone Yazmin, 1.2.840.7 [id number] Methodi 00:00:00 00:00:[address] 3.430.2.7 Hospit a .3.906723 l .8 2021-01-19 2021-01-19 Telephone Prabhu, 1.2.840.1 [id number] Methodi 00:00:00 00:00:[address] 3.430.2.7 Hospit a .3.903528 l .8 2020-12-12 2020-12-12 Office Hematpour, [facility] 6400 1.2.840.114 [id number] 07:42:02 08:18:[address] 350.1.13.58 9.2.7.2.686 [id number] 1 2020-12-09 2020-12-09 Telephone Carol Ann, 1.2.840.1 [id number] Methodi 00:00:00 00:00:00 Sarai Lieberman 50190.1.1 316 s t 3.430.2.7 Hospit a .3.843854 l .8 2020-12-08 2020-12-08 [facility], 1.2.840.1 [id number] Methodi 12:35:54 23:59:00 Encounter Ray [address]4965.1.[address] 3.430.2.7 Hospit a .3.557098 l .8 2020-12-08 2020-12-08 Lab Yazmin, 1.2.840.1 [id number] Methodi 17:25:00 17:30:[address] 3.430.2.7 Hospit a .3.175909 l .8 2020-12-08 2020-12-08 [facility], 1.2.840.1 [id number] Methodi 10:30:00 11:39:56 Visit Ray 87255.1.[address] 3.430.2.7 Hospit a .3.669349 l .8 2020-12-08 2020-12-08 Travel 1.2.840.1 1.2.877.024 [id number] Methodi 00:00:00 00:00:[address] 3.430.2.7 0.2.7.3.698 Ho spita .3.064114 084.8 l .8 2020-12-02 2020-12-02 Rug Dyer [facility] UNIVERSIT 1.2.840.114 [id number] 10:20:06 10:36:19 Visit HEALTH 350.1.13.10 CLINICS 4.2.7.2.686 [id number] [facility] 2020-11-25 2020-11-25 Office [facility] 1.2.840.114 [id number] 11:06:30 11:58:14 Visit Robbi Hairston PROTOTYPE MACHINIST 350.1.13.10 [facility] 4.2.7.2.686 MATERNAL [id number] & CHILD [address] [place] [address] 2020-11-25 2020-11-25 [facility] 1.2.863.809 [id number] 00:00:00 00:00:00 [facility] [id number] [facility] 4.2.7.2.686 [id number] 2020-11-25 2020-11-[address] [facility] 1.2.125.157 [id number] 00:00:00 00:00:00 Robbi Marika PROTOTYPE MACHINIST 350.1.13.10 [facility] 4.2.7.2.686 MATERNAL [id number] & CHILD [address] [place] [address] 2020-11-14 2020-11-14 Abstract Clark, 1.2.840.1 [id number] Methodi 00:00:00 00:00:[address] 3.430.2.7 Hospit a .3.615025 l .8 2020-11-14 2020-11-14 Telephone Clark, 1.2.840.1 [id number] Methodi 00:00:00 00:00:[address] 3.430.2.7 Hospit a .3.467215 l .8 2020-11-07 2020-11-07 Telephone Diana [facility] 64[address] 1.2.840.114 [id number] 00:00:00 00:00:[address] 350.1.13.58 9.2.7.2.686 [id number] 1 2020-10-27 2020-10-27 Telephone Yazmin, 1.2.840.6 [id number] Methodi 00:00:00 00:00:[address] 3.430.2.7 Hospit a .3.658957 l .8 2020-10-24 2020-10-24 Telephone Clark, 1.2.840.1 [id number] Methodi 00:00:00 00:00:[address] 3.430.2.7 Hospit a .3.651187 l .8 2020-10-06 2020-10-12 Telemedici Yazmin, 1.2.840.1 [id number] Methodi 15:30:00 00:08:46 ne Ray [address]40.1.[address] 3.430.2.7 Hospit a .3.696303 l .8 2020-09-30 2020-09-30 [facility], 1.2.840.7 [id number] Methodi 00:00:00 00:00:[address] 3.430.2.7 Hospit a .3.653636 l .8 2020-09-21 2020-09-21 [facility] 1.2.840.1 1.2.442.450 [id number] [id number] Methodi 00:00:00 00:00:[address] 3.430.2.7 0.2.7.3.698 [facility] .3.609494 084.8 l .8 2020-09-06 2020-09-06 [facility] 1.2.840.1 [id number] 80621 [id number] Methodi 17:42:30 23:59:[address] 3.430.2.7 Hospit a .3.891734 l .8 2020-09-06 2020-09-06 [facility], 1.2.840.1 [id number] 2100 [id number] Methodi 16:50:00 17:41:00 Encounter Ray [address]908.1.[address] 3.430.2.7 Hospit a .3.240858 l .8 2020-09-05 2020-09-05 [facility], 1.2.840.1 [id number] 2100 [id number] Methodi 09:17:00 19:45:00 Encounter Ray [address]31.1.[address] 3.430.2.7 Hospit a .3.152638 l .8 2020-09-05 2020-09-05 [facility], 1.2.840.1 [id number] 50159 07108 Methodi 11:30:00 13:15:[address] 3.430.2.7 Hospit a .3.474640 l .8 2020-09-05 2020-09-05 Anesthesia Remigio, 1.2.840.1 [id number] 157 [id number] Methodi 11:27:00 12:20:00 Event Kirit 39744.1.1 243 s t V. 3.430.2.7 Hospit a .3.819897 l .8 2020-09-05 2020-09-05 Travel 1.2.840.1 1.2.753.102 3160 [id number] Methodi 00:00:00 00:00:[address] 3.430.2.7 0.2.7.3.698 Ho spita .3.596136 084.8 l .8 2020-09-04 2020-09-04 Telephone [place], 1.2.840.1 [id number] Methodi 00:00:00 00:00:00 Sarai Lieberman 91840.1.1 762 s t 3.430.2.7 Hospit a .3.701295 l .8 2020-09-02 2020-09-02 Telephone [place], 1.2.840.9 [id number] Methodi 00:00:00 00:00:00 Sarai Libeerman 62604.1.1 344 s t 3.430.2.7 Hospit a .3.745695 l .8 2020-08-29 2020-08-[id number] 10:20:00 14:10:00 Outpatient r [place] 00 l [facility] 2020-08-29 2020-08-30 Outpatient HEMATPOUR, [facility] CAR 7500 [facility] 05:20:00 09:10:00 [place] Results Test Description Test Time Test Comments Results Result Comments Source COMP. METABOLIC PANEL (63750) 2021-10-24 22:57:37 Test Item Value Reference Range Interpretation Comme nts NA (test code = 6386270269) 141 mmol/L 135-145 K (test code = 6579349878) 3.6 mmol/L 3.5-5.0 CL (test code = 0996565074) 106 mmol/L 98-108 CO2 TOTAL (test code = 4300560462) 27 mmol/L 23-31 AGAP (test code = 5643607608) 2-16 BUN (test code = 3765132560) 23 mg/dL 7-23 GLUCOSE (test code = 0007357943) 92 mg/dL 70-110 CREATININE (test code = 0.98 mg/dL 0.50-1.04 2163413186) TOTAL BILI (test code = 0.5 mg/dL 0.1-1.4 4797013104) CALCIUM (test code = 2090759388) 8.5 mg/dL 8.6-10.6 L T PROTEIN (test code = 4399926412) 6.2 g/dL 6.3-8.2 L ALBUMIN (test code = 9058460072) 3.5 g/dL 3.5-5.0 ALK PHOS (test code = 3872205615) 80 U/L 34-122 ALTv (test code = 1742-6) 18 U/L 5-35 AST(SGOT) (test code = 7862296173) 44 U/L 13-40 H eGFR (test code = 5519986554) mL/min/1.73m2 KYLE (test code = KYLE) Association of Glomerular Filtration Rate (GFR) and Staging of Kidney Disease* + +-------- + ------+| GFR (mL/min/1.73 m2) ?| With Kidney Damage ?| ?Without Kidney Damage+ +-- + +| ?>90 ?| ?Stage one ?| ? Normal ?+ +------- + -------+| ?60-89 ?| ?Stage two ?| ? Decreased GFR ? + +-------- + ------+| ?30-59 ?| ?Stage three ?| ? Stage three ? + +-------- + ------+| ?15-29 ?| ?Stage four ? | ? Stage four ?+ +------- + -------+| ?<15 (or dialysis) ? ?| ?Stage five ? | ? Stage five ?+ +------- + -------+ *Each stage assumes the associated GFR [...] or abnormalities in imaging tests). Lab Interpretation (test code = Abnormal 01563-9) [facility] [id number] 22:54:36 Test Item Value Reference Range Interpretation Comments APTT Patient (test See_Comment [Automat ed code = 3173-2) message] The system which generated this result transmitted reference range : 23 - 38 Seconds . The reference range was not used to interpr et this result as normal/abnormal . KYLE (test code = KYLE) The [facility] patient population mean normal value for aPTT is 30 seconds. Lab Interpretation Normal (test code = 51337-1) [facility] Hospital[facility] / [id number] 22:52:36 Test Item Value Reference Range Interpretation Comments PROTIME PATIENT (test See_Comment [Auto mated message] code = 5964-2) The system wh ich generated this result transmitted ref erence range: 12.0 - 1 4.7 Seconds. The re ference range was not u sed to interpret this result as normal/abnor mal. INR (test code = 6301-6) Nor mal INR <1.1; Warfarin Therap eutic range 2.0 to 3. 0 or 2.5 to 3.5, dep ending upon the indica tions. Lab Interpretation (test Normal code = 58291-8) [facility] WITH [id number] 22:42:34 Test Item Value Reference Range Interpretation Comments WBC (test code = See_Comment L [Automated 2690-2) message] The sy stem which generated this result transmitted reference range : 4.30 - 11.10 10*3/?L. The reference range was not used to interpret this result as normal/abnormal . RBC (test code = See_Comment L [Automated 979-8) message] The sy stem which generated this result transmitted reference range : 3.93 - 5.25 10*6/?L. The reference range was not used to interpret this result as normal/abnormal . HGB (test code = 8.3 g/dL 11.6-15.0 L 718-7) HCT (test code = 28.0 % 35.7-45.2 L 4544-3) MCV (test code = 76.7 fL 80.6-95.5 L 787-2) MCH (test code = 22.7 pg 25.9-32.8 L 785-6) MCHC (test code = 29.6 g/dL 31.6-35.1 L 786-4) RDW-SD (test code = 47.8 fL 39.0-49.9 56611-3) RDW-CV (test code = 17.1 % 12.0-15.5 H 788-0) PLT (test code = See_Comment [Automated 777-3) message] The sy stem which generated this result transmitted reference range : 166 - 358 10*3/ ?L. The reference r abbey was not used to interpret this result as normal/abnormal . MPV (test code = 9.5 fL 9.5-12.9 25444-7) NRBC/100 WBC (test See_Comment [Automat ed code = 7523715818) message] The system which generated this result transmitted reference range : 0.0 - 10.0 /100 WBCs. The refer ence range was not u sed to interpret th is result as normal/abnormal . NRBC x10^3 (test code <0.01 See_Comment [Auto mated = 7867624593) message] The s ystem which generated this result transmitted reference range : 10*3/?L. The reference range was not used to interpret this result as normal/abnormal . GRAN MAT (NEUT) % 67.5 % (test code = 770-8) IMM GRAN % (test code 0.30 % = 5241805160) LYMPH % (test code = 19.8 % 736-9) MONO % (test code = 11.3 % 5905-5) EOS % (test code = 0.8 % 713-8) BASO % (test code = 0.3 % 706-2) GRAN MAT x10^3(ANC) 2.71 10*3/uL 1.88-7.09 (test code = 6807486558) IMM GRAN x10^3 (test <0.03 0.00-0.06 code = 1632391157) LYMPH x10^3 (test code 0.79 10*3/uL 1.32-3.29 L = 731-0) MONO x10^3 (test code 0.45 10*3/uL 0.33-0.92 = 742-7) EOS x10^3 (test code = 0.03 10*3/uL 0.03-0.39 711-2) BASO x10^3 (test code <0.03 0.01-0.07 = 704-7) Lab Interpretation Abnormal (test code = 33086-0) [facility] METABOLIC PANEL (NA, K, CL, CO2, GLUCOSE, BUN, CREATININE, CA)2021-10-24 03:48:20 Test Item Value Reference Range Interpretation Comments NA (test code = 142 mmol/L 135-145 4783730865) K (test code = 3.9 mmol/L 3.5-5.0 9346981096) CL (test code = 105 mmol/L 98-108 1016121406) CO2 TOTAL (test code = 26 mmol/L 23-31 5889580845) AGAP (test code = 2-16 9941080235) BUN (test code = 26 mg/dL 7-23 H 8789276000) GLUCOSE (test code = 92 mg/dL 70-110 8310457289) CREATININE (test code = 0.97 mg/dL 0.50-1.04 9347061458) CALCIUM (test code = 8.8 mg/dL 8.6-10.6 7232375206) eGFR (test code = mL/min/1.73m2 4744823388) KYLE (test code = KYLE) Association of [...] tests). Lab Interpretation Abnormal (test code = 03767-7) [facility] WITH AMEO0572-68-49 03:39:42 Test Item Value Reference Range Interpretation Comments WBC (test code = See_Comment [Automated 9090-2) message] The sy stem which generated this result transmitted reference range : 4.30 - 11.10 10*3/?L. The reference range was not used to interpret this result as normal/abnormal . RBC (test code = See_Comment [Automated 400-8) message] The sy stem which generated this result transmitted reference range : 3.93 - 5.25 10*6/?L. The reference range was not used to interpret this result as normal/abnormal . HGB (test code = 10.1 g/dL 11.6-15.0 L 718-7) HCT (test code = 35.7 % 35.7-45.2 4544-3) MCV (test code = 77.8 fL 80.6-95.5 L 787-2) MCH (test code = 22.0 pg 25.9-32.8 L 785-6) MCHC (test code = 28.3 g/dL 31.6-35.1 L 786-4) RDW-SD (test code = 47.7 fL 39.0-49.9 31586-0) RDW-CV (test code = 17.0 % 12.0-15.5 H 788-0) PLT (test code = See_Comment [Automated 777-3) message] The sy stem which generated this result transmitted reference range : 166 - 358 10*3/ ?L. The reference r abbey was not used to interpret this result as normal/abnormal . MPV (test code = 10.3 fL 9.5-12.9 94345-9) NRBC/100 WBC (test See_Comment [Automat ed code = 9526498439) message] The system which generated this result transmitted reference range : 0.0 - 10.0 /100 WBCs. The refer ence range was not u sed to interpret th is result as normal/abnormal . NRBC x10^3 (test code <0.01 See_Comment [Auto mated = 6386001368) message] The s ystem which generated this result transmitted reference range : 10*3/?L. The reference range was not used to interpret this result as normal/abnormal . GRAN MAT (NEUT) % 65.1 % (test code = 770-8) IMM GRAN % (test code 0.40 % = 2438580752) LYMPH % (test code = 24.0 % 736-9) MONO % (test code = 9.7 % 5905-5) EOS % (test code = 0.4 % 713-8) BASO % (test code = 0.4 % 706-2) GRAN MAT x10^3(ANC) 2.95 10*3/uL 1.88-7.09 (test code = 5852344183) IMM GRAN x10^3 (test <0.03 0.00-0.06 code = 5466562513) LYMPH x10^3 (test code 1.09 10*3/uL 1.32-3.29 L = 731-0) MONO x10^3 (test code 0.44 10*3/uL 0.33-0.92 = 742-7) EOS x10^3 (test code = <0.03 0.03-0.39 L 711-2) BASO x10^3 (test code <0.03 0.01-0.07 = 704-7) Lab Interpretation Abnormal (test code = 35138-0) [facility] Coronavirus 2019 Myqmnio1712-81-05 18:08:00 Test Item Value Reference Range Interpretation Comments Novel Coronavirus Negative Negative Positive r esults are 2019 Inhouse (test indicativ e of the presence code = COVNONPUI) ofSARS-CoV -2 RNA, clinical correlation wit h patient historyand othe r diagnostic info rmation is necessary to determinepatien t infection status. Positiv e results do not rule out bacterial infection or co -infection with other viru ses. Negative result s do not preclude SARS-C oV-2 infection andsh ould not be used as the charles e basis for patient managementdecis ions. Negative result s must be combined with otherclinical observations, p atient history, and epidemiological information . Detection of SARS-CoV-2 RNA may be affe cted bysample collec tion methods, storag e conditions, and /or stageof infection. Iesha l RNA mutations, vacc inations, antiviraltherap eutics, antibiotics, chemotherapeuti c orimmunosuppres ashley drugs have not been e valuated for effectson d etection. Results are for the identification of SARS-CoV-2 RNA usingreal-time (RT) polymerase sedrick n reaction (PCR) technolog yfor the qualitative det ection of nucleic acids f rom vvgABNK-AbC-9 v irus and diagnosis of SA RS-CoV-2 virusinfection. It is an Emergency Use Authorization ( EUA) testauthorized by the U.S. FDA. BASIC METABOLIC [id number] 09:37:00 Test Item Value Reference Range Interpretation [...] = 9.0 mg/dL 8.0-10.5 N CA) PROTHROMBIN [id number] 09:32:00 Test Item Value Reference Range Interpretation [...] o prevent recurre nt infarct). 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 [facility] - XR CHEST 1 [id number] 00:00:00 [facility] 1955 Sex: F FAX: Lele Olivera DO [phone] [place]: St: ADM FAX: Jean Paul Scales MD [phone] FAX: Bahman Chopra [phone] Name: LIO WATTS [facility] [place] : 1955 Age/S: 66/F [address] [place] [address] Unit #: [id number] Loc: [place] [address] 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 BASIC METABOLIC TTIJQ4281-00-65 11:37:00 Test Item Value Reference Range Interpretation [...] code = 9.0 mg/dL 8.0-10.5 N CA) TFAKLZZXRF4648-33-66 11:37:00 Test Item Value Reference Range Interpretation Comments PREALBUMIN (test code = PREALB) 24.3 mg/dL 16.0-40.0 N PROTHROMBIN [id number] 11:03:00 Test Item Value Reference Range Interpretation [...] o prevent recurre nt infarct). CBC W/AUTO IZWS4893-31-91 10:59:00 Test Item Value Reference Range Interpretation [...] 0.0-0.1 N NRBC#) - XR CHEST 2 [id number] 00:00:00 [facility] 1955 Sex: F FAX: Lele Olivera DO [phone] [place]: St: PRE FAX: Jean Paul Scales MD [phone] Name: LIO WATTS [facility] : 1955 Age/S: 66/F [address] [place] [address] Blvd Unit #: [id number] Loc: [place] [address] Phys: [id number] Dis Date: [place] [facility] [place]ONE #: [phone] Exam Date: 06/16/2021 1120 FAX #: [phone] Reason: PREOP EXAMS: CPT CODE: [id number] XR CHEST 2 V 37508 PROCEDURE INFORMATION: Exam: XR Chest Exam date [...] MD Technologist: RT Andree(R) Trnscrd Date/Time/By: 06/16/2021 (1139) : By: [email or web address] Orig Print D/T: S: 06/16/2021 (3755) PAGE 1 Signed ReportGastrointestinal rrvdr7615-19-01 04:35:05 Test Item Value Reference Interpretation Comments [...] Rotavirus PCR (test Not Detected code = 1413150) Salmonella PCR (test Not Detected code = [...] Not Detected (test code = 7124) [facility] opyezsx2730-28-81 19:30:47 Test Item Value Reference Range Interpretation Comments Case number (test [id number] code = 7675261) Surgical pathology See link below for PDF report (test code = Lab Report 2255) Result status (test This is Supplemental code = 9004333) Report for [id number] [facility]2021-04-09 16:31:00 Test Item Value Reference Range Interpretation Comments POC Activated Clotting Time (test code 153 s = POC Activated Clotting Time) [facility] DallasAtlouvbHJNZDYHXNO5907-05-11 16:31:00 Test Item Value Reference Range Interpretation Comments POC Activated Clotting Time (test code 153 s = POC Activated Clotting Time) [facility] DallasAdiiyuzTZOHDSNAEA5453-24-29 16:31:00 Test Item Value Reference Range Interpretation Comments POC Activated Clotting Time (test code 153 s = POC Activated Clotting Time) [facility] DallasLbmjasaXYCVINYOMV6599-11-57 16:31:00 Test Item Value Reference Range Interpretation Comments POC Activated Clotting Time (test code 153 s = POC Activated Clotting Time) [facility] DallasYzfwvrdOKEOWSGGGU5394-54-70 16:31:00 Test Item Value Reference Range Interpretation Comments POC Activated Clotting Time (test code 153 s = POC Activated Clotting Time) [facility] DallasHxqubkrNVGEGLLPJZ3556-72-11 16:31:00 Test Item Value Reference Range Interpretation Comments POC Activated Clotting Time (test code 153 s = POC Activated Clotting Time) [facility] DallasMlqxamwDKVHKIWUJP2981-62-83 16:31:00 Test Item Value Reference Range Interpretation Comments POC Activated Clotting Time (test code 153 s = POC Activated Clotting Time) [facility] DallasTefqqxnMNKFWYTDWZ7171-70-36 14:37:00 Test Item Value Reference Range Interpretation Comments POC Activated Clotting Time (test code 454 s = POC Activated Clotting Time) [facility] DallasBrfvoqfLFMGULZLQP6522-99-46 14:37:00 Test Item Value Reference Range Interpretation Comments POC Activated Clotting Time (test code 454 s = POC Activated Clotting Time) [facility] DallasNtsjwkuUIEXTQQBMV0602-89-94 14:37:00 Test Item Value Reference Range Interpretation Comments POC Activated Clotting Time (test code 454 s = POC Activated Clotting Time) [facility] DallasFneedfjNAIZSRLYVI5990-30-11 14:37:00 Test Item Value Reference Range Interpretation Comments POC Activated Clotting Time (test code 454 s = POC Activated Clotting Time) [place] 083511-04-09 14:37:00 Test Item Value Reference Range Interpretation Comments POC Activated Clotting Time (test code 454 s = POC Activated Clotting Time) [facility] DallasItrxyezCAQTQXOQXJ8696-62-81 14:37:00 Test Item Value Reference Range Interpretation Comments POC Activated Clotting Time (test code 454 s = POC Activated Clotting Time) [facility] DallasVemwisfSIACRAAMTR9577-90-78 14:37:00 Test Item Value Reference Range Interpretation Comments POC Activated Clotting Time (test code 454 s = POC Activated Clotting Time) [facility] DallasXgohbtdQQZKXQIIBZ9987-70-54 14:13:00 Test Item Value Reference Range Interpretation Comments POC Activated Clotting Time (test code 354 s = POC Activated Clotting Time) [facility] DallasGgosdkzIJHPUNZMZR5625-32-36 14:13:00 Test Item Value Reference Range Interpretation Comments POC Activated Clotting Time (test code 354 s = POC Activated Clotting Time) [facility] DallasTefwyhcBWAOOFKFRW8869-06-56 14:13:00 Test Item Value Reference Range Interpretation Comments POC Activated Clotting Time (test code 354 s = POC Activated Clotting Time) [facility] DallasSmcgvvjBLXXEZTMSW5531-11-64 14:13:00 Test Item Value Reference Range Interpretation Comments POC Activated Clotting Time (test code 354 s = POC Activated Clotting Time) [facility] DallasOhiwrahNBJZSJPOQH9219-30-22 14:13:00 Test Item Value Reference Range Interpretation Comments POC Activated Clotting Time (test code 354 s = POC Activated Clotting Time) [place] 083511-04-09 14:13:00 Test Item Value Reference Range Interpretation Comments POC Activated Clotting Time (test code 354 s = POC Activated Clotting Time) [facility] DallasUesthpfKTWSMYYWVX1531-91-72 14:13:00 Test Item Value Reference Range Interpretation Comments POC Activated Clotting Time (test code 354 s = POC Activated Clotting Time) [facility] B[facility] GQZPWCY9730-95-43 10:37:00Negative (08/29/20 5:37 AM) [facility]ann[facility] UGSJJ6329-20-48 10:37:80321Gjsogmil HermannCHEM PANEL 2020-08-29 10:37:0028[facility] HermannCHEM OJUYE2970-11-75 10:37:001.01[facility] HermannCHEM IOWEV6340-41-00 10:37:52504Gkhqvafq HermannCHEM UWISE9760-99-55 10:37:003.8[facility] HermannCHEM SDJJE6396-57-11 10:37:54924Wevzprcv HermannCHEM SITMW4217-51-87 10:37:0028[facility] HermannCHEM ZIDDQ9935-00-81 10:37:009.8 [facility]annCHEM BSRZN2339-37-34 10:37:0011.8[facility] HermannCHEM PANEL 2020-08-29 10:37:0059[facility] HermannCHEM HBUJR0031-47-35 10:37:002.9[facility] QqhbhjkXMOCULHGNM7603-93-83 10:37:006.8[facility] CkggcaqGTMRPDPBCQ7133-51-23 10:37:004.47[facility] SnsnnijPGAPSVBNXP6021-20-05 10:37:0010.6[facility] CYCDBDSYYF2020-33-26 10:37:0034.0[facility] KkuexvaOWEJOFPWGV9821-09-77 10:37:00 76.1[facility] LxrgqvrHVJRKRTMFF6785-51-59 10:37:00 Test Item Value Reference Range Interpretation Comments MCH (test code = MCH) 23.8 pg 27.0-31.0 [facility] AenukxwQDALQLICDH0891-05-81 10:37:0031.3[facility] HermannHEMATOLOGY 2020-08-29 10:37:0018.2[facility] ZbkagyfPJFQHBHAPC0647-90-47 10:37:76030Kziptqpw QdyoyxrYGCABKXQLD1015-28-14 10:37:007.5[facility] WdsdrtuLEHVEZMVDM2486-50-10 10:37:00 Test Item Value Reference Range Interpretation Comments PT (test code = PT) 12.8 s 12.0-14.7 Memorial SsrbwsjLKXFJJHWVC9656-55-07 10:37:00 Test Item Value Reference Range Interpretation Comments INR (test code = INR) 0.97 1 0.85-1.17 [facility] UkcfcjjUODFUYEBOO7394-13-82 10:37:00 Test Item Value Reference Range Interpretation Comments PTT (test code = PTT) 25.0 s 22.9-35.8 [facility] GnhyufaYIUFOSYNJL9314-49-33 10:37:0070.5[facility] HermannHEMATOLOGY 2020-08-29 10:37:0018.8[facility] UqmqmtgUAVKHMCVNY0103-86-65 10:37:009.5[facility] XydcjzbGHEVTNDRQO5306-12-09 10:37:000.9[facility] DmeoilmBKIWHVTMQH3261-58-93 10:37:000.3[facility] IdydjntXIXZXXFSQZ7063-89-16 10:37:004.8[facility] AVJQPGIFEN6840-86-73 10:37:001.3[facility] JxwnopdYCSWAFBFOA3859-23-34 10:37:000.6 [facility] WeurkpiOGPXUOSVYH6171-51-33 10:37:000.1[facility] HermannHEMATOLOGY 2020-08-29 10:37:001+ *ABN*(08/29/20 5:37 AM)[facility] LyogcehSMWYYLIXBO4856-64-60 10:37:00Not Detected (08/29/20 5:37 AM)[facility]annBLOOD BANK RESULTS 2020-08-29 10:37:00Negative (08/29/20 5:37 AM)[facility] HermannCHEM OJGLM1012-82-02 10:37:35305Sxajgmrp HermannCHEM KSRYY0075-29-97 10:37:0028[facility] HermannCHEM JJGJW2759-54-97 10:37:001.01[facility] HermannCHEM XUHZS9488-27-10 10:37:30608 [facility] HermannCHEM TOYXP5887-92-81 10:37:003.8[facility] HermannCHEM PANEL 2020-08-29 10:37:35151Xultgutk HermannCHEM WTLSM0166-39-60 10:37:0028[facility] HermannCHEM AAQVA7448-15-45 10:37:009.8[facility] HermannCHEM JDOMO2788-11-13 10:37:0011.8[facility] HermannCHEM YQYWJ6186-50-82 10:37:0059[facility] HermannCHEM FYTXU1279-21-02 10:37:002.9[facility] ZljqlxgEPAYYIYMJQ1861-90-46 10:37:006.8 Memorial PttpmbhQXOXBSMERI0350-03-35 10:37:004.47[facility] HermannHEMATOLOGY 2020-08-29 10:37:0010.6[facility] GotpdmfCLBMEXCPLC6974-27-86 10:37:0034.0[facility] HabjypqMKYIOFGHTV9484-60-31 10:37:0076.1[facility]orial GpcxhymINXDRKSOXK6025-86-08 10:37:00 Test Item Value Reference Range Interpretation Comments MCH (test code = MCH) 23.8 pg 27.0-31.0 [facility] DjjfwemJGZJHWMKUG1850-88-69 10:37:0031.3[facility] HermannHEMATOLOGY 2020-08-29 10:37:0018.2[facility] WltiqpqFRLIGVKDTA8898-66-54 10:37:13155Trpiqcjf NolspkeXCPOWEJEJJ2065-74-91 10:37:007.5[facility] VmefszuWORZAMGDHY4654-07-78 10:37:00 Test Item Value Reference Range Interpretation Comments PT (test code = PT) 12.8 s 12.0-14.7 [facility] YuxrajrFFGRRGELBW1685-74-89 10:37:00 Test Item Value Reference Range Interpretation Comments INR (test code = INR) 0.97 1 0.85-1.17 [facility] DpojvktYMAJZREINF3947-54-05 10:37:00 Test Item Value Reference Range Interpretation Comments PTT (test code = PTT) 25.0 s 22.9-35.8 [facility] TyfehwbQLIXZROSOZ0039-38-21 10:37:0070.5[facility] HermannHEMATOLOGY 2020-08-29 10:37:0018.8[facility] LembzwkEDTISHIBRN7832-55-12 10:37:009.5[facility] CqaoqczFBRIUYFEMC9759-41-28 10:37:000.9[facility] GuaqxphIXWTGVIEHN1873-71-22 10:37:000.3[facility] SmwpjihOGYDFMCLVF8065-54-39 10:37:004.8[facility] ZHFDIGKTQC9498-43-39 10:37:001.3[facility] MsnasntRWYPVFWCKG7095-05-81 10:37:000.6 [facility] AvhualpIFLEWNOZXM0204-41-03 10:37:000.1[facility]annHEMATOLOGY 2020-08-29 10:37:001+ *ABN*(08/29/20 5:37 AM)[facility] TaovstxBQFGVHTEQM9624-06-05 10:37:00Not Detected (08/29/20 5:37 AM)[facility] RES[facility] 2020-08-29 10:37:00Negative (08/29/20 5:37 AM)[facility]annCHEM LVDKY2110-51-45 10:37:76192Vrnllnzp HermannCHEM FFLWW3954-15-54 10:37:0028[facility]annCHEM UTMBZ0455-90-14 10:37:001.01[facility]annCHEM EPTRZ2919-79-40 10:37:06886 [facility]annCHE[facility] CYSOV9036-58-30 10:37:003.8[facility]annCHEM PANEL 2020-08-29 10:37:84851Fveoakvw HermannCHEM USTEE8912-35-71 10:37:0028[facility]annCHEM XJLTX4030-93-85 10:37:009.8[facility] HermannCHEM ELAMK7752-32-75 10:37:0011.8[facility]annCHEM ZLJGE7471-25-40 10:37:0059[facility]annCHEM ROSAO1053-33-75 10:37:002.9[facility] DybhvxrSVRSZTCPBZ6446-90-95 10:37:006.8 [facility] NleahrtCJEOGKRPNP4878-82-92 10:37:004.47[facility]annHEMATOLOGY 2020-08-29 10:37:0010.6[facility] KerxuqrLTHGKOXTNX8038-33-24 10:37:0034.0[facility] JzmnvjdYNTHEHJPCF4781-95-93 10:37:0076.1[facility] ExipkoeTCIJFVLEQK0661-58-89 10:37:00 Test Item Value Reference Range Interpretation Comments MCH (test code = MCH) 23.8 pg 27.0-31.0 [facility] BdvqwmtCVIALWEYUP6184-63-82 10:37:0031.3[facility]annHEMATOLOGY 2020-08-29 10:37:0018.2[facility] BttzpmmPCIUHVRHXE2566-21-91 10:37:47090Mpvkwgas KwcxtwrCAWMTEZWUE6230-67-59 10:37:007.5[facility] BeewrlzDPVNCOBFEY2383-06-04 10:37:00 Test Item Value Reference Range Interpretation Comments PT (test code = PT) 12.8 s 12.0-14.7 [facility] FwfsdupLTEDISLVRM9129-71-67 10:37:00 Test Item Value Reference Range Interpretation Comments INR (test code = INR) 0.97 1 0.85-1.17 [facility] ZfujarfUWRATTSDIO8359-72-29 10:37:00 Test Item Value Reference Range Interpretation Comments PTT (test code = PTT) 25.0 s 22.9-35.8 [facility] SwwouyxQPFOCAZAIV4747-79-55 10:37:0070.5[facility]annHEMATOLOGY 2020-08-29 10:37:0018.8[facility] WcqsfrvSSJVOLQBHA4633-35-39 10:37:009.5[facility] JlgisnaJYNYJMMDYJ9114-46-95 10:37:000.9[facility] GjfsjdvONWPBXTJVJ2430-23-18 10:37:000.3[facility] QigswlvEFDBCXSNEK0460-12-56 10:37:004.8[facility] TJHTWDOXQP4126-57-81 10:37:001.3[facility] QfpvvayUTIHDCBBAR1059-85-42 10:37:000.6 [facility] GgksvinVOHDUWQUWI7752-60-48 10:37:000.1[facility]annHEMATOLOGY 2020-08-29 10:37:001+ *ABN*(08/29/20 5:37 AM)[facility] NlxqmfgJQITNEZEUV8934-55-85 10:37:00Not Detected (08/29/20 5:37 AM)[facility]annBL[facility]OD BANK RESULTS 2020-08-29 10:37:00Negative (08/29/20 5:37 AM)[facility]annCHEM OBKVZ6012-61-21 10:37:11197Ejozklon HermannCHEM ESFXB3418-66-28 10:37:0028[facility]annCHEM KAOGC3133-53-44 10:37:001.01[facility]annCHEM SZMTS8437-94-17 10:37:86010 [facility]annCHE[facility] KINST8542-96-47 10:37:003.8[facility]annCHEM PANEL 2020-08-29 10:37:49884Szazwcln HermannCHEM KRMBA3379-85-30 10:37:0028[facility]annCHEM CUAFG6278-82-66 10:37:009.8[facility]annCHEM VFEUO2417-85-61 10:37:0011.8[facility]annCHEM FOEGJ4076-50-03 10:37:0059[facility]annCHEM UFLSA1926-87-06 10:37:002.9[facility] ChipwofYUCPXGTVEF2825-04-30 10:37:006.8 [facility] AvqdajaLUDQQEQGVX5911-61-03 10:37:004.47[facility]annHEMATOLOGY 2020-08-29 10:37:0010.6[facility] VzqibxeGXIEWVTMWO3816-48-71 10:37:0034.0[facility] KhlzbobTWKNSMPGTO1806-28-19 10:37:0076.1[facility] LbrbmahIGYMQIXJRX3261-99-05 10:37:00 Test Item Value Reference Range Interpretation Comments MCH (test code = MCH) 23.8 pg 27.0-31.0 [facility] DinrvsoUGYFMKCMSU9729-57-91 10:37:0031.3[facility]annHEMATOLOGY 2020-08-29 10:37:0018.2[facility] EzhrbovYKETUQQKCH5655-52-78 10:37:16928Couuyfsv WjbnncpWEPZQQXGMH1142-03-99 10:37:007.5[facility] KjxhoyrDPMEZDZEED8626-80-96 10:37:00 Test Item Value Reference Range Interpretation Comments PT (test code = PT) 12.8 s 12.0-14.7 [facility] IiypzgvQPIWMFCOSR6165-72-45 10:37:00 Test Item Value Reference Range Interpretation Comments INR (test code = INR) 0.97 1 0.85-1.17 [facility] PmjyctvXTWJKMJGYV9186-49-72 10:37:00 Test Item Value Reference Range Interpretation Comments PTT (test code = PTT) 25.0 s 22.9-35.8 [facility] QlthojqTGXMPPQVON1366-99-46 10:37:0070.5[facility]annHEMATOLOGY 2020-08-29 10:37:0018.8[facility] WjnqllzEZWRHQXNID1611-52-73 10:37:009.5[facility] VehavsvPBAUFIBNMG4730-92-34 10:37:000.9[facility] RjxtlpmUKISCPMNDL8314-20-11 10:37:000.3[facility] JmqhfblMZXJQNJSYQ9381-97-33 10:37:004.8[facility] HSGMLXGZEL1531-08-08 10:37:001.3[facility] OobdapoYLRSDORRNW7201-54-36 10:37:000.6 [facility] FsmxopfMOYJTWMLQX8616-60-24 10:37:000.1[facility]annHEMATOLOGY 2020-08-29 10:37:001+ *ABN*(08/29/20 5:37 AM)[facility] TcssitrVRHVHYPFTX5424-13-14 10:37:00Not Detected (08/29/20 5:37 AM)[facility]annBLOOD BANK RESULTS 2020-08-29 10:37:00Negative (08/29/20 5:37 AM)[facility]annCHEM ZLOZP3800-90-31 10:37:91252Esvztguj HermannCHEM LUZJI8663-41-56 10:37:0028[facility]annCHEM ZLRQC7526-42-19 10:37:001.01[facility]annCHEM PYZLU2424-00-23 10:37:56601 [facility]annCHEM USDGH7211-73-37 10:37:003.8[facility]annCHEM PANEL 2020-08-29 10:37:10594Qbrjsixm HermannCHEM EGFAJ9370-34-70 10:37:0028[facility]annCHEM AFOVB2973-09-30 10:37:009.8[facility]annCHEM XRRSP1857-53-80 10:37:0011.8[facility]annCHEM MTNZL3145-03-48 10:37:0059[facility]annCHEM HDDYO6165-88-87 10:37:002.9[facility] QplmmneSCHOTPROCV1881-04-35 10:37:006.8 [facility] ZtjyhriMEFYPHATYJ4159-52-26 10:37:004.47[facility]annHEMATOLOGY 2020-08-29 10:37:0010.6[facility] LuqzhchZUJKCZIFDS9951-52-35 10:37:0034.0[facility] VvvvmnxIWHWUJYBTW8325-62-60 10:37:0076.1[facility] CialbuoQEYAXMEOPS9310-40-12 10:37:00 Test Item Value Reference Range Interpretation Comments MCH (test code = MCH) 23.8 pg 27.0-31.0 [facility] TwmhxqeMRWBJLIMNK9546-59-30 10:37:0031.3[facility]annHEMATOLOGY 2020-08-29 10:37:0018.2[facility] NmcrsetNEAMWOPVXH5987-64-54 10:37:49417Zfeipzmi ZqnwhpnFXZMJARBJF4368-96-44 10:37:007.5[facility] QuchenvUMDMMVAIOQ4495-58-31 10:37:00 Test Item Value Reference Range Interpretation Comments PT (test code = PT) 12.8 s 12.0-14.7 [facility] OopdvayPKHFDBICUS2351-11-78 10:37:00 Test Item Value Reference Range Interpretation Comments INR (test code = INR) 0.97 1 0.85-1.17 [facility] DzwabeqFULYDRMTQS8162-15-34 10:37:00 Test Item Value Reference Range Interpretation Comments PTT (test code = PTT) 25.0 s 22.9-35.8 [facility] EyxklxhKBSPFROEVW8929-17-11 10:37:0070.5[facility]annHEMATOLOGY 2020-08-29 10:37:0018.8[facility] SbzbfshXJQTPCLGAX8710-27-44 10:37:009.5[facility] EbaxszmXCGGJMAJXW0745-23-81 10:37:000.9[facility] UcbhoklKYMFTSAZWF7088-21-31 10:37:000.3[facility] MblnzswKDHXWAWWWD6485-75-57 10:37:004.8[facility] QNAAIEWJDC8512-87-16 10:37:001.3[facility] AusgpndSVQKYYLNOU3985-75-27 10:37:000.6 [facility] ZpoqvgrPIWPTTZKKD5479-76-54 10:37:000.1[facility]annHEMATOLOGY 2020-08-29 10:37:001+ *ABN*(08/29/20 5:37 AM)[facility] GfvvrnsZXZIXHLLAN9249-29-42 10:37:00Not Detected (08/29/20 5:37 AM)[facility]annBLOOD BANK RESULTS 2020-08-29 10:37:00Negative (08/29/20 5:37 AM)[facility]annCHEM UFKRN3689-51-59 10:37:67979Xtpyxcys HermannCHEM JBJBA9247-58-70 10:37:0028[facility]annCHEM NCTLY9672-76-86 10:37:001.01[facility]annCHEM WFLPV3650-65-98 10:37:97524 [facility]annCHE[facility] DQTHL1468-38-85 10:37:003.8[facility] HermannCHEM PANEL 2020-08-29 10:37:78699Oopfvtrk HermannCHEM WZNPR1598-54-62 10:37:0028[facility]annCHEM FSKVI6371-80-19 10:37:009.8[facility]annCHEM VRIJN9901-08-41 10:37:0011.8[facility] HermannCHEM OTLIS1551-66-76 10:37:0059[facility]annCHEM IKYXG2750-76-63 10:37:002.9[facility] MzzmufsTVFXNWFAMH4286-05-50 10:37:006.8 [facility] TfvliizKQSGKAZCPV9976-43-08 10:37:004.47[facility]annHEMATOLOGY 2020-08-29 10:37:0010.6[facility] QgszoomXBLNFFYXSI5437-47-81 10:37:0034.0[facility] PiyamllMSOAIPAMEK6960-36-02 10:37:0076.1[facility] PajndgvBOAKMCUFOQ0383-17-49 10:37:00 Test Item Value Reference Range Interpretation Comments MCH (test code = MCH) 23.8 pg 27.0-31.0 [facility] NbnbkuiXMRKIFJDJX3218-90-26 10:37:0031.3[facility]annHEMATOLOGY 2020-08-29 10:37:0018.2[facility] FhzrjsmFIZYFCGQOM1967-38-44 10:37:37728Rmisktye UcrsiayFRLBSNCQRC2505-60-39 10:37:007.5[facility] PnexvijPPVMWFPWDZ3620-14-04 10:37:00 Test Item Value Reference Range Interpretation Comments PT (test code = PT) 12.8 s 12.0-14.7 [facility] QakjkcwEYUKUSRQGB8655-51-05 10:37:00 Test Item Value Reference Range Interpretation Comments INR (test code = INR) 0.97 1 0.85-1.17 [facility] KvadwafLBKGQQJJQH3897-73-12 10:37:00 Test Item Value Reference Range Interpretation Comments PTT (test code = PTT) 25.0 s 22.9-35.8 [facility] LtajrfpQDXHWEBCOQ9857-39-90 10:37:0070.5[facility]annHEMATOLOGY 2020-08-29 10:37:0018.8[facility] QuvjcczODCSSFBKTA3455-18-30 10:37:009.5[facility] QgxoeklRIZAFIBEFS2213-95-01 10:37:000.9[facility] NftbevgFCTTVKTAIK5775-24-70 10:37:000.3[facility] DmvrmmlUPLCKWOWBV2899-64-33 10:37:004.8[facility] VHLTHUNOEF5498-48-65 10:37:001.3[facility] IgrkyczIIGKBSSBJY9191-89-12 10:37:000.6 [facility] BcmiualZMSFHHCBBN8381-07-09 10:37:000.1[facility]annHEMATOLOGY 2020-08-29 10:37:001+ *ABN*(08/29/20 5:37 AM)[facility] RpopkbrOGPLTLFBVZ9215-37-52 10:37:00Not Detected (08/29/20 5:37 AM)[facility]annBLOOD BANK RESULTS 2020-08-29 10:37:00Negative (08/29/20 5:37 AM)[facility]annCHEM TTYDP6387-39-10 10:37:84096Pkqmhfyy HermannCHEM NVXZU8910-68-80 10:37:0028[facility]annCHEM XXOYA4973-63-12 10:37:001.01[facility] HermannCHEM RDUXH5972-80-11 10:37:49208 [facility]annCHEM KBTMW2529-01-27 10:37:003.8[facility] HermannCHEM PANEL 2020-08-29 10:37:44735Zyytxfor HermannCHEM PQTIV4065-14-67 10:37:0028[facility]annCHEM MYHDN2374-25-27 10:37:009.8[facility] HermannCHEM XTNCU6944-01-82 10:37:0011.8[facility] HermannCHEM POLAP6154-22-41 10:37:0059[facility] HermannCHEM ZDAUR9063-73-10 10:37:002.9[facility] MtgoyztZWGXQJTWEE9375-04-01 10:37:006.8 [facility] LtdaibuIBRFBPYMPR7999-24-41 10:37:004.47[facility]annHEMATOLOGY 2020-08-29 10:37:0010.6[facility] HigzklwGTOETZLTUN3178-59-26 10:37:0034.0[facility] GsvsrxiJDFXSINRVG0818-19-87 10:37:0076.1[facility] RcdzffzFBKUWVPMWT4032-57-50 10:37:00 Test Item Value Reference Range Interpretation Comments MCH (test code = MCH) 23.8 pg 27.0-31.0 [facility] UqmbhvqAJWLCRZZYX2462-12-70 10:37:0031.3[facility]annHEMATOLOGY 2020-08-29 10:37:0018.2[facility] UlfioojTUYFNTGQSV3688-13-98 10:37:55364Oijursaz TxeokdtPQUDMLZUSW0804-56-09 10:37:007.5[facility] YfbacatBQCXACVVUU8822-90-02 10:37:00 Test Item Value Reference Range Interpretation Comments PT (test code = PT) 12.8 s 12.0-14.7 [facility] FajttmlRBYCFDVUQX5639-68-35 10:37:00 Test Item Value Reference Range Interpretation Comments INR (test code = INR) 0.97 1 0.85-1.17 [facility] MgnhhfxHVXISPMIRS6177-84-60 10:37:00 Test Item Value Reference Range Interpretation Comments PTT (test code = PTT) 25.0 s 22.9-35.8 [facility] FlyuefzBGLSSUOQWN4441-08-97 10:37:0070.5[facility]annHEMATOLOGY 2020-08-29 10:37:0018.8[facility] EhzgidlBZNEPJPTAY1441-43-95 10:37:009.5[facility] PvxaxsaJIYNDWPWSR0205-94-66 10:37:000.9[facility] AfvahtxMMVOYXANUA8861-27-44 10:37:000.3[facility] FuwfiqhEQSZIDYNKV8400-72-11 10:37:004.8[facility] MBWQGYMUHU2563-00-24 10:37:001.3[facility] QmlwcatWORAIYFJKS2785-22-80 10:37:000.6 [facility] ZyozipgCEKWPKBVXQ2548-10-87 10:37:000.1[facility]annHEMATOLOGY 2020-08-29 10:37:001+ *ABN*(08/29/20 5:37 AM)[facility] ArdymnoCPFGXOCFJQ0062-09-96 10:37:00Not Detected (08/29/20 5:37 AM)[facility] HermannCHLAMYDIA, GC, TV,PCR, IN LHDZZ0984-31-50 15:38:00 Test Item Value Reference Range Interpretation Comments FT (test code = CHTR) Not detected (qualifier Not Detected N value) FT (test code = Not detected (qualifier Not Detected N NGONO) value) FT (test code = TRVG) Not detected (qualifier Not Detected N value) URINALYSIS WITH GVJUZIYKRLS7185-45-01 10:57:00 Test Item Value Reference Range Interpretation Comments Color (test code = UCOLR) Dk. Yellow Clarity (test code = UCLAR) Hazy Glucose (test code = UGLUC) NEGATIVE NEGATIVE N Bilirubin (test code = UBILI) NEGATIVE NEGATIVE N Ketones (test code = UKET) NEGATIVE NEGATIVE N Specific [place] (test code = 1.025 1.005-1.030 A USPGR) [...] code = None Seen None Seen N URCRYS)"
[2021-10-25] MEDS ORDERED: ACETAMINOPHEN 500 MG TAB ONE (20:36)
[2021-10-25] MEDS ORDERED: DIAZEPAM 5 MG TABLET ONE (20:37)
--- NOTE | 2021-10-25 21:38 | RAD REPORT ---
EXAM DESCRIPTION: RAD - Lumbar Spine 3 Views - 10/25/2021 9:24 pm CLINICAL HISTORY: PAIN Radiculopathy COMPARISON: Sacrum And Coccyx dated 10/22/2021; Lumbar Spine 3 Views dated 03/29/2021; LUMBAR SPINE 3 V IEWS dated 06/17/2009 FINDINGS: Mild diffuse osteopenia is seen. No compression fracture is evident. Mild degenerate russell es seen lower lumbar spine with minimal anterolisthesis L5 on S1. Moderate bilateral facet hypertroph y L5-S1. IMPRESSION: No acute abnormality is detected.
--- NOTE | 2021-10-25 21:39 | RAD REPORT ---
EXAM DESCRIPTION: RAD - Sacrum And Coccyx - 10/25/2021 9:24 pm CLINICAL HISTORY: LOWER BACK PAIN COMPARISON: Lumbar Spine 3 Views dated 10/25/2021; Sacrum And Coccyx dated 10/22/2021; Lumbar Spine 3 Vi ews dated 03/29/2021; LUMBAR SPINE 3 VIEWS dated 06/17/2009 FINDINGS: No fracture or subluxation is seen. Symmetric sacroiliac joints.
--- NOTE | 2021-10-25 22:06 | EDPHYS ---
Physician Documentation [facility] Name: Fawn Fleming Age: 66 yrs Sex: Female : 1955 Arrival Date: 10/25/2021 Time: 19:58 Bed 15 Private MD: ED Physician Jose Shah HPI: 10/25 20:17 This 66 yrs old Female presents to ER via EMS with complaints of fall, back pain. ms3 20:17 The patient presents with pain that is acute, and spasm. The symptoms are located in ms3 the low back, coccyx area. Onset: The symptoms/episode began/occurred acutely, just prior to arrival. The pain does not radiate. Associated signs and symptoms: The patient has no apparent associated signs or symptoms. Modifying factors: The patient symptoms are alleviated by nothing, the patient symptoms are aggravated by nothing. Severity of symptoms: At their worst the symptoms were severe, in the emergency department the symptoms are unchanged. Historical: - Allergies: 20:13 Bactrim DS; ll3 20:13 butorphanol tartrate; ll3 20:13 Fentanyl; ll3 20:13 Reglan; ll3 20:13 Stadol; ll3 20:13 sulfamethoxazole (bulk); ll3 20:13 TRIMETHOPRIM; ll3 - PMHx: 20:13 Anxiety; Atrial Fib; Bipolar disorder; Chronic pain; COPD; esophageal varices; ll3 Hepatitis; HIV; Hypertension; Panic Attacks; Migraines; - PSHx: 20:13 Appendectomy; Bilateral shoulder repair; Cholecystectomy; hernia repair; R wrist SX; ll3 - Immunization history:: Client reports receiving the 2nd dose of the Covid vaccine. - Social history:: Smoking status: Patient/guardian denies using tobacco. ROS: 20:17 Constitutional: Negative for fever, and chills. Neck: Negative for injury, pain, and ms3 swelling, Cardiovascular: Negative for chest pain, and palpitations. Abdomen/GI: Negative for abdominal pain, nausea, vomiting, diarrhea, and constipation. 20:17 Skin: Negative for injury, rash, and discoloration. 20:17 Back: Positive for pain at rest. 20:17 All other systems are negative. Exam: 20:17 Constitutional: This is a well developed, well nourished patient who is awake, alert, ms3 and in no acute distress. Eyes: Pupils equal round and reactive to light, extra-ocular motions intact. Lids and lashes normal. Conjunctiva and sclera are non-icteric and not injected. Periorbital areas with no swelling, redness, or edema. Neck: Trachea midline, no cervical lymphadenopathy. Supple, full range of motion without nuchal rigidity, or vertebral point tenderness. No Meningismus. Chest/axilla: Normal chest wall appearance and motion. Nontender with no deformity. Cardiovascular: Regular rate and rhythm with a normal S1 and S2. No gallops, murmurs, or rubs. Normal PMI, no JVD. No pulse deficits. Respiratory: Lungs have equal breath sounds bilaterally, clear to auscultation and percussion. No rales, rhonchi or wheezes noted. No increased work of breathing, no retractions or nasal flaring. Abdomen/GI: Soft, non-tender, with normal bowel sounds. No distension or tympany. No guarding or rebound. No evidence of tenderness throughout. Skin: Warm, dry with normal turgor. Normal color with no rashes, no lesions, and no evidence of cellulitis. 20:17 Back: pain, that is severe, of the left low back, ROM is normal, normal spinal alignment noted, vertebral tenderness, is not appreciated, muscle spasm, is appreciated in the left low back. Vital Signs: 20:09 BP 135 / 73; Pulse 73; Resp 18; Temp 97.9(O); Pulse Ox 99% on 4 lpm NC; Weight 95.25 ll3 kg; Height 5 ft. 4 in. (162.56 cm); Pain 10/10; 21:00 BP 149 / 72; Pulse 55; Resp 18; Pulse Ox 100% on R/A; ll3 22:12 BP 156 / 76; Pulse 55; Resp 17; Pulse Ox 100% ; ll3 20:09 Body Mass Index 36.04 (95.25 kg, 162.56 cm) ll3 MDM: 20:15 Patient medically screened. ms3 20:17 Differential diagnosis: chronic back pain, sprain, vertebral fracture. ms3 21:37 ED course: Patient demanding IV Dilaudid for back pain s/p fall. Discussed with patient ms3 at length PO valium for muscle spasm and x-rays. Patient states she is allergic to [place]. Patient states she has fallen multiple time over the last few months and this pain has been persistent. . 22:18 Data reviewed: vital signs, nurses notes, radiologic studies, plain films, and as a ms3 result, I will discharge patient. Data interpreted: Pulse oximetry: on 3L(s) per nasal canula, is 100 %. Interpretation: normal. Counseling: I had a detailed discussion with the patient and/or guardian regarding: the historical points, exam findings, and any diagnostic results supporting the discharge/admit diagnosis, radiology results, the need for outpatient follow up, to return to the emergency department if symptoms worsen or persist or if there are any questions or concerns that arise at home. 10/25 20:17 Order name: Lumbar Spine (3 Views) XRAY; Complete Time: 21:50 ms3 10/25 20:17 Order name: Sacrum And Coccyx XRAY; Complete Time: 21:50 ms3 Administered Medications: 20:37 Not Given (Patient Refused): Tylenol 1000 mg PO once ll3 21:01 Drug: Valium (diazepam) 5 mg Route: PO; ll3 22:12 Follow up: Response: No adverse reaction; No change in condition ll3 Disposition Summary: 10/25/21 22:05 Discharge Ordered Location: Home ms3 Condition: Stable ms3 Diagnosis - Low back pain ms3 - fall ms3 Followup: ms3 - With: Private Physician - When: 2 - 3 days - Reason: Recheck today's complaints, Re-evaluation by your physician Discharge Instructions: - Discharge Summary Sheet ms3 - Acute Back Pain, Adult ms3 Forms: - Medication Reconciliation Form ms3 - Thank You Letter ms3 - Antibiotic Education ms3 - Prescription Opioid Use ms3 Signatures: Dispatcher [employer] EDMS Jose Shah DO DO ms3 Shyann Moore, RN RN ll3
--- NOTE | 2021-10-25 22:06 | ER ---
Nurse's Notes [facility] Name: Fawn Fleming Age: 66 yrs Sex: Female : 1955 Arrival Date: 10/25/2021 Time: 19:58 Bed 15 Private MD: Diagnosis: Low back pain;fall Presentation: 10/25 20:09 Chief complaint: EMS states: Toned out for fall, pt states "my legs went out and I ll3 fell", denies LOC, c/o back pain 10/10 since fall at 1920. Coronavirus screen: Vaccine status: Patient reports receiving the 2nd dose of the covid vaccine. At this time, the client does not indicate any symptoms associated with coronavirus-19. Ebola Screen: No symptoms or risks identified at this time. Initial Sepsis Screen: Does the patient meet any 2 criteria? No. Patient's initial sepsis screen is negative. Does the patient have a suspected source of infection? No. Patient's initial sepsis screen is negative. Risk Assessment: Do you want to hurt yourself or someone else? Patient reports no desire to harm self or others. Onset of symptoms was October 25, 2021 at 19:20. Care prior to arrival: Oxygen administered. via nasal cannula. Mechanism of Injury: Fall from standing position. 20:09 Method Of Arrival: EMS: [facility] ll3 20:09 Acuity: BLAYNE 3 ll3 Triage Assessment: 20:13 General: Appears uncomfortable, Behavior is calm, cooperative. Pain: Complains of pain ll3 in back Pain currently is 10 out of 10 on a pain scale. Pain began 2 hours ago. Is continuous. Neuro: Level of Consciousness is awake, alert, obeys commands, Oriented to person, place, time, situation. Respiratory: Respiratory effort is even, unlabored, Respiratory pattern is regular, symmetrical. Derm: Skin is pink, warm \\T\\ dry. Musculoskeletal: Circulation, motion, and sensation intact. Reports pain in back since 1919. Pain is 10 out of 10 on a pain scale. Historical: - Allergies: 20:13 Bactrim DS; ll3 20:13 butorphanol tartrate; ll3 20:13 Fentanyl; ll3 20:13 Reglan; ll3 20:13 Stadol; ll3 20:13 sulfamethoxazole (bulk); ll3 20:13 TRIMETHOPRIM; ll3 - PMHx: 20:13 Anxiety; Atrial Fib; Bipolar disorder; Chronic pain; COPD; esophageal varices; ll3 Hepatitis; HIV; Hypertension; Panic Attacks; Migraines; - PSHx: 20:13 Appendectomy; Bilateral shoulder repair; Cholecystectomy; hernia repair; R wrist SX; ll3 - Immunization history:: Client reports receiving the 2nd dose of the Covid vaccine. - Social history:: Smoking status: Patient/guardian denies using tobacco. Screenin:15 Abuse screen: Denies threats or abuse. Nutritional screening: No deficits noted. ll3 Tuberculosis screening: No symptoms or risk factors identified. 22:09 Fall Risk None identified. ll3 Assessment: 20:15 General: See triage assessment. ll3 21:00 Reassessment: per pt request I spoke to the pt who stated "this doctor never gives me bb an IV" pt requested dilaudid or morphine for her back pain which she wants administered through an IV. Informed pt that an IV was not indicated for her complaint of back pain at this time Dr Shah notified of pt request. 21:36 Reassessment: pt states the "klonopin is not doing any good" I informed the pt she was bb not given klonopin but she insisted it was klonopin then I told her she had been given Valium she then stated "I knew it was a trick". The pt is lethargic her eyes are closed and she opens them intermittently while talking. 22:10 Reassessment: No changes from previously documented assessment. Patient and/or family ll3 updated on plan of care and expected duration. Pain level reassessed. Patient is alert, oriented x 3, equal unlabored respirations, skin warm/dry/pink. Vital Signs: 20:09 BP 135 / 73; Pulse 73; Resp 18; Temp 97.9(O); Pulse Ox 99% on 4 lpm NC; Weight 95.25 ll3 kg; Height 5 ft. 4 in. (162.56 cm); Pain 10/10; 21:00 BP 149 / 72; Pulse 55; Resp 18; Pulse Ox 100% on R/A; ll3 22:12 BP 156 / 76; Pulse 55; Resp 17; Pulse Ox 100% ; ll3 20:09 Body Mass Index 36.04 (95.25 kg, 162.56 cm) ll3 ED Course: 19:58 Patient arrived in ED. ll3 20:00 Jose Shah DO is Attending Physician. ms3 20:09 Shyann Moore, ASHLEY is Primary Nurse. ll3 20:13 Triage completed. ll3 20:13 Arm band placed on Patient placed in an exam room, on a stretcher, on pulse oximetry. ll3 20:15 Patient has correct armband on for positive identification. Bed in low position. Call ll3 light in reach. Side rails up X 1. 21:26 Lumbar Spine (3 Views) XRAY In Process Unspecified. EDMS 21:26 Sacrum And Coccyx XRAY In Process Unspecified. EDMS 22:09 No provider procedures requiring assistance completed. Patient did not have IV access ll3 during this emergency room visit. Administered Medications: 20:37 Not Given (Patient Refused): Tylenol 1000 mg PO once ll3 21:01 Drug: Valium (diazepam) 5 mg Route: PO; ll3 22:12 Follow up: Response: No adverse reaction; No change in condition ll3 Medication: 20:15 VIS not applicable for this client. ll3 Outcome: 22:05 Discharge ordered by . ms3 22:42 Discharged to home via wheelchair, Taxi ll3 22:42 Condition: stable 22:42 Discharge instructions given to patient, Instructed on discharge instructions, follow up and referral plans. Demonstrated understanding of instructions, follow-up care. 22:42 Patient left the ED. ll3 Signatures: Dispatcher [employer] EDMD Dee Kennedy RN RN bb Jose Shah DO DO ms3 Shyann Moore RN RN ll3 Corrections: (The following items were deleted from the chart) 22:11 20:09 BP 135 / ???; Pulse 73bpm; Resp 18bpm; Pulse Ox 99% 4 lpm Nasal Cannula; Temp ll3 97.9F Oral; 95.25 kg; Height 5 ft. 4 in.; BMI: 36.0; Pain 10/10; ll3
[2021-10-25 22:47] VITALS: TEMP 97.9
[2021-10-25 22:48] VITALS: O2SAT 100
[2021-10-25 22:49] VITALS: BP 156/76
== END 2021-10-25 22:42 | disposition home or self-care (01) ==
LOC: ER 19:49
DX: M54.50 Low back pain, unspecified (principal); Z88.1 Allergy status to other antibiotic agents; Z88.8 Allergy status to other drugs, medicaments and biological substances; Z88.2 Allergy status to sulfonamides; F41.9 Anxiety disorder, unspecified; I48.91 Unspecified atrial fibrillation; I10 Essential (primary) hypertension; B20 Human immunodeficiency virus [HIV] disease; G43.909 Migraine, unspecified, not intractable, without status migrainosus; W19.XXXA Unspecified fall, initial encounter; Y93.9 Activity, unspecified; Y92.9 Unspecified place or not applicable
CPT/HCPCS: 72100; 72220; 99284

== ENCOUNTER 2021-10-25 23:36 | Inpatient (IN) | payer OTHER ==
--- OUTSIDE RECORDS SUMMARY | 2021-10-25 23:46 | XMS REPORT | Continuity of Care Document ---
:1955 Author Organization [facility] t Address [address] [place] [address] Care Team Providers Name Role Phone RahmanFrancisco bird Des Primary Care Physician Ashely Attending Clinician Unavailable PANKAJ Attending Clinician Unavailable Christian MCALLISTER Attending Clinician Unavailable Miguelangel JENKINS Attending Clinician Christian Mcallister MD Attending Clinician Kinjal JENKINS Attending Clinician Yazmin JENKINS Attending Clinician Emerald Maharaj NP. Attending Clinician Prabhu SANCHEZ Attending Clinician Unavailable [facility] Attending Clinician Unavailable Devin HUITRONP, R Attending Clinician Ronald PA Attending Clinician Clark SANCHEZ Attending Clinician Unavailable Diana SANCHEZ Attending Clinician Unavailable Remigio JENKINS V. Attending Clinician KINJAL Attending Clinician Unavailable DO SYL Attending Clinician Unavailable Kristen Rahman Admitting Clinician Unavailable Ashely Admitting Clinician Unavailable YAZMIN Admitting Clinician Unavailable DO SYL Admitting Clinician Unavailable Payers Payer Name Policy Type Policy Number Effective Date Expiration Date S gabino [facility] PLAN [id number] 2012 [employer] 00:00:00 [facility] DUAL [id number] 2020 COMP HMO D SNP 00:00:00 MEDICAID OF [place] [id number] 2020 00:00:00 Problems Condition Condition Condition Status Onset Resolution Last Treating Co mments Source Name Details Category Date Date Treatment Clinician Date Gastropare Gastropare Disease Active Overview : Methodi sis sis 4-[address] 00:00: [facility] 00 note l might be different from the original. Added automatic ally from request for surgery [id number] Dysphagia Dysphagia Disease Active Overview: Methodi 4-[address] 00:00: g of this [facility]osp[facility] 00 note l might be different from the original. Added automatic ally from request for surgery [id number] CCL / EPS Diagnosis Active 2020-10-15 Memoria PVI 3-30 17:07:00 l ABLATION CCL / 00:00: Marty W/ CARTO / EPS PVI 00 GA / T ABLATION W/ CARTO / GA / T Active 08/19/2020 [facility] Food Food Disease Active 2019-05 Methodi intoleranc [...] [facility] hoxazole 1-25 Clear 00:00: Garcia 00 [facility] trimetho DA Active [facility] prim 1-25 Clear 00:00: Garcia 00 [facility] codeine DA Active SV N/V [facility] 1-25 Clear 00:00: Garcia [facility] Metoclop Propensi Active [place] ramide ty [...] Hallucinatio 2019-05 Methodi nol ty to ns 2 st adverse 00:00: Hospita reaction 00 l s to drug Fentanyl Allergy Active Unknown Other [place] to 208 reaction( Health substanc 00:00: s): e 00 HivesUnkn own reactionU nknown reactionU nknown reactionU nknown reactionU nknown reaction FENTANYL DRUG Active High Hives 2018-0 Univers INGREDI 2-08 ity of 00:00: [place] [...] DRUG Active Unknown-Cmnt Un matt RAMIDE INGREDI 1- ity of 00:00: [place] 00 Medical Branch [...] [place] reaction 00 Medical s Branch Butorpha Allergy Active Hallucinatio Other U T nol to ns 2-14 reaction( Health substanc 00:00: s): e 00 confusion , Hallucina tions, Hallucina tions, Hallucina tions, Unknown - See comments BUTORPHA DRUG Active High Hallucinates Un matt NOL INGREDI 2-14 ity of TARTRATE 00:00: [place] [facility] Butorpha Propensi Active Hallucinatio Univers nol ty to ns 2-14 ity of Tartrate adverse 00:00: [place] reaction 00 Medical s to Branch drug Bactrim Bactrim Active Memoria l Marty Family History Family Member Diagnosis Comments Start Date Stop Date Source Natural [facility] mother [facility] Social History Social Habit Start Date Stop Date Quantity Comments Source History [facility] Alcohol Comment History of tobacco Smoker Method ist use Hospital History [facility] Alcohol Frequency Hospita l History [facility] Alcohol Std Drinks Hospit al History SDOH [facility] Exposure to 2021-10-13 2021-10-23 Not sure University of SARS-CoV-2 (event) 00:00:00 20:05:00 [facility] Alcohol intake 2021-07-14 2021-07-14 Ex-drinker [facility] 00:00:00 00:00:00 (finding) Tobacco use and 2020-10-31 2020-10-31 Smokeless tobacco [facility] exposure 00:00:00 00:00:00 non-user Cigarettes smoked 2020-09-05 2020-09-[address] current (pack per 00:00:00 00:00:00 Hospita l day) - Reported Cigarette 2020-09-05 2020-09-05 [facility] pack-years 00:00:00 00:00:00 Hospital Tobacco Comment 2015-02-14 2015-02-14 Smokes approx 1-2 Un iversity of 00:00:00 00:00:00 cigarettes per [place] [facility] porfirio day when she Branch smokes Sex Ass[birth year] [facility] 00:00:00 00:00:00 Smoking Status Start Date Stop Date Source Former smoker 2020-08-06 00:00:00 2020-08-06 00:00:00 [facility] Medications Ordered Filled Start Stop Current Ordering Indication Dosage Frequency Signature Comments Components Source Medication Medication Date Date Medication? Clinician (SIG) Name Name cefTRIAXone No 1000mg 1,000 mg, Univers (ROCEPHIN) 10-25 IV ity of 1,000 mg in 01:45: 01:18 [facility], [place] NaCl 0.9% 00 :00 ONCE, 1 Medical (NS) 50 mL dose, On [facility] h MINI-BAG 10/24/21 at 2044, Administer over 30 Minutes, 50 mL
R jasmin for Anti-Infec tive: Documented Infection< br>Documen arpit Infection Site: Urine<br&g t;Duration of Therapy: Other (see Comments) ondansetron No 4mg 4 mg, Slow Univers (ZOFRAN 10-24 IV Push, ity of (PF)) 23:08: 23:11 ONCE, 1 [place] injection 4 00 :00 dose, On Medi porfirio mg 10/24/21 Branch at 181, JOE morpHINE (4 No 4mg 4 mg, Slow Univers mg/mL) 10-24 IV Push, ity of injection 4 23:08: 23:11 [place]CE[place] 1 [place] mg 00 :[place] dose, On Medical 10/24/21 Branch at 1815, STAT iopamidol 2021- No [id number] 70mL 70 mL, Univers (ISOVUE 10-24 Intravenou ity o f 370-500 mL) 22:30: 22:26 s, ONCE, 1 [place] injection 00 :00 dose, On Medica l 70 mL 10/24/21 Branch at 1730, Routine HYDROmorpho 2021- No 1mg 1 mg, [facility] ers ne 10-24 Intramuscu ity of (DILAUDID) 05:30: 04:32 lar, ONCE, [place] injection 1 00 :00 1 dose, On Me dical mg 10/24/21 Branch at 0030, JOE
Us e approved by (Faculty): ADC PROVIDER HYDROmorpho 2021- No 1mg 1 mg, [facility] ne 10-24 Intramuscu ity of (DILAUDID) 05:00: 04:03 lar, ONCE, [place] injection 1 00 :00 1 dose, On Me dical mg 10/24/21 Branch at 0000, JOE
Us e approved by (Faculty): ADC PROVIDER cephALEXin Yes [id number] 500mg Take 1 Univers (KEFLEX) 6-04 capsule [...] 7-10). Indication s: acute pain buPROPion Yes [id number] 150mg Take 1 U nivers XL 4-12 tablet by ity of (WELLBUTRIN 00:00: mouth [place] XL) 150 mg 00 daily. Medical 24 hr Branch tablet busPIRone Yes [id number] 30mg Take 1 Un matt 30 mg 4-12 tablet by ity of tablet 00:00: mouth 2 [place] 00 (two) Medical times Branch daily. SERTraline Yes [id number] 200mg Take 2 Univers 100 mg 4-12 tablets by ity of tablet 00:00: mouth [place] 00 daily. Medical Branch buPROPion 2021-0 Yes [id number] 150mg Take 1 U nivers XL 4-12 tablet by ity of (WELLBUTRIN 00:00: mouth [place] XL) 150 mg 00 daily. Medical 24 hr Branch tablet busPIRone 2021-0 Yes [id number] 30mg Take 1 Un matt 30 mg 4-12 tablet by ity of tablet 00:00: mouth 2 [place] 00 (two) Medical times Branch daily. SERTraline 2021-0 Yes [id number] 200mg Take 2 Univers 100 mg 4-12 tablets by ity of tablet 00:00: mouth [place] 00 daily. Medical Branch raltegravir Yes [id number] 400mg Take 1 Univers (ISENTRESS) 3-28 tablet by ity of 400 mg 00:00: mouth 2 [place] tablet 00 (two) Medical times Branch daily. raltegravir Yes [id number] 400mg Take 1 Univers (ISENTRESS) 3-28 tablet by ity of 400 mg 00:00: mouth 2 [place] tablet 00 (two) Medical times Branch daily. LORazepam 1 0 Yes [id number] 1mg Take 1 Univers mg tablet 3-21 tablet by ity o f 00:00: mouth 3 [place] 00 (three) Medical times Branch daily as needed (anxiety). LORazepam 1 0 Yes [id number] 1mg Take 1 Univers mg tablet 3-21 tablet by ity o f 00:00: mouth 3 [place] 00 (three) Medical times Branch daily as needed (anxiety). raltegravir 0 Yes 400mg Q.5D Take 400 U T (Isentress) 2-22 mg by Health 400 MG 09:09: mouth 2 tablet 52 (two) times a day. furosemide 2021-0 Yes 40mg Q.5D Take 40 mg U T (Lasix) 40 -08 by mouth 2 Hea lth MG tablet 00:00: (two) 00 times a day. promethazin 2021-0 Yes 25mg Q.5D Take 25 mg UT e 2-08 by mouth 2 Health (Phenergan) 00:00: (two) 25 MG 00 times a tablet day. emtricitabi 0 Yes [id number] Take one Univers ne-tenofovi 1-20 po daily ity of r alafen 00:00: [place] (DESCOVY) 00 Medical tablet Branch emtricitabi Yes [id number] Take one Univers ne-tenofovi 1-20 po daily ity of r alafen 00:00: [place] (DESCOVY) 00 Medical tablet Branch metoprolol Yes [id number] Take 1 UT tartrate 7-26 tablet Health (Lopressor) 00:00: (100 mg 100 MG 00 total) by tablet mouth 2 (two) times a day AND 0.5 tablets (50 mg total) every night. metoprolol Yes [id number] Take 1 UT tartrate 7-26 tablet Health [...] area in groin) hydrALAZINE 0 Yes 50mg Q.[id number] Take 50 mg Methodi (APRESOLINE 7-[id number] mouth [address] ) 50 MG [...] Hospita tablet 25 daily. l nystatin-tr Yes [id number] Apply to [facility] - area(s) 3 ity of cream 00:00: (three) [place] 00 times Medical daily. Branch nystatin-tr 0 Yes [id number] Apply to [facility] 7-06 area(s) 3 ity of cream 00:00: (three) [place] 00 times Medical daily. Branch budesonide- 2020-0 2021- No 1{puff} QD Inhale 1 Methodi formoteroL 6-25 06-[address] (SYMBICORT) 14:37: 00:00 morning. H ospita 160-4.5 02 :00 l mcg/actuati on inhaler hydrALAZINE 2020-0 Yes [id number] 50mg Q.[id number] Take 1 UT (Apresoline 6- [id number] tablet (50 Health ) 50 MG 00:00: 3D mg total) tablet 00 by mouth 3 (three) times a day. hydrALAZINE 0 Yes [id number] 50mg Q.[id number] Take 1 UT (Apresoline 6-11 [id number] tablet (50 Health ) 50 MG 00:00: 3D mg total) tablet 00 by mouth 3 (three) times a day. Breztri 2020-0 Yes UT Aerosphere 6-09 Health 160-9-4.8 00:00: MCG/ACT 00 aerosol Breztri 2020-0 Yes UT Aerosphere 6-09 Health 160-9-4.8 00:00: MCG/ACT 00 aerosol albuterol 2020-0 Yes UT (2.5 6-02 Health MG/3ML) 00:00: 0.083% 00 nebulizer solution albuterol 2020-0 2021- No UT (2.5 6-02 02-22 Health [...] 00:00: ointment 00 nystatin 0 2020- No [id number] Q.25D Take 5 mL Methodi (MYCOSTATIN 17 06-01 (500,000 st ) 100,000 00:00: 04:59 [...] 00:00: 40 MG EC 00 tablet pantoprazol No 40mg Q.5D Take 2 Met hodi e 4-16 05-[address] (Protonix) 00:00: 04:59 (40 mg Hosp soren 20 MG EC 00 :00 total) by l tablet mouth 2 (two) times a day for 30 days. Amlodipine No Notes: Memor ia 4-10 (Same as: l 14:00: Norvasc) Lane emtricitabi No Notes: Caesar lisa ne 200 MG / 4-10 (Same as: l tenofovir 14:00: Descovy) Herm ariel alafenamide 00 Non-formul 25 MG Oral nancy Tablet [Descovy] pantoprazol No Notes: Caesar lisa e 4-10 Tablet l 14:00: should not Lane 00 be chewed or crushed. (Same as: Protonix) Amiodarone No Notes: Memor ia 4-10 (Same as: l 14:00: Cordarone) Lane 00 Amlodipine No Notes: Memor ia 4-10 (Same as: l 14:00: Norvasc) Lane emtricitabi No Notes: Caesar lisa ne 200 MG / 4-10 (Same as: l tenofovir 14:00: Descovy) Herm ariel alafenamide 00 Non-formul 25 MG Oral nancy Tablet [Descovy] Sertraline No Notes: Memor ia 4-10 (Same as: l 14:00: Zoloft) Marty Sertraline No Notes: Memor ia 4-10 (Same as: l 14:00: Zoloft) Marty pantoprazol No Notes: Caesar lisa e 4-10 Tablet l 14:00: should not Lane 00 be chewed or crushed. (Same as: Protonix) Amiodarone No Notes: Memor ia 4-10 (Same as: l 14:00: Cordarone) Marty Amlodipine No Notes: Memor ia 4-10 (Same as: l 14:00: Norvasc) Lane emtricitabi No Notes: Caesar lisa ne 200 [...] e 4-10 Tablet l 14:00: should not Lane 00 be chewed or crushed. (Same as: [...] e 4-10 Tablet l 14:00: should not Lane 00 be chewed or crushed. (Same as: Protonix) Amiodarone No Notes: Memor ia 4-10 (Same as: l 14:00: Cordarone) Lane Amlodipine No Notes: Memor ia 4-10 (Same as: l 14:00: Norvasc) Lane emtricitabi No Notes: Caesar lisa ne 200 MG / 4-10 (Same as: l tenofovir 14:00: Descovy) Herm ariel alafenamide 00 Non-formul 25 MG Oral anncy Tablet [Descovy] Sertraline No Notes: Memor ia 4-10 (Same as: l 14:00: Zoloft) Lane pantoprazol No Notes: Caesar lisa e 4-10 Tablet l 14:00: should not Lane 00 be chewed or crushed. (Same as: Protonix) Amiodarone No Notes: Memor ia 4-10 (Same as: l 14:00: Cordarone) Marty Amlodipine No Notes: Memor ia 4-10 (Same as: l 14:00: Norvasc) Lane emtricitabi No Notes: Caesar lisa ne 200 MG / 4-10 (Same as: l tenofovir 14:00: Descovy) Herm ariel alafenamide 00 Non-formul 25 MG Oral nancy Tablet [Descovy] Sertraline No Notes: Memor ia 4-10 (Same as: l 14:00: Zoloft) Marty pantoprazol No Notes: Caesar lisa e 4-10 Tablet l 14:00: should not Lane 00 be chewed or crushed. (Same as: Protonix) Amiodarone No Notes: Memor ia 4-10 (Same as: l 14:00: Cordarone) Lane Sucralfate No Notes: May M emoria 4-10 [...] 0.9% 4-10 (Same as: l 02:00: BD Lane 00 Posiflush) Eliquis No Notes: Memoria 4-10 Same as: l 02:00: Eliquis Marty Hydralazine No Notes: Caesar lisa Hydrochlori 4-10 (Same as: l de 50 MG 02:00: Apresoline Her mitchell Oral Tablet 00 ) May interfere w/enteral feedings Take With Food Sucralfate No Notes: May M emoria 4-10 interfere l 02:00: w/enteral Lane 00 feeds - Take 1 hr before or 2 hr after antacids, dairy pdt, meals & minerals - On empty stomach. For patients unable to swallow tablet, dissolve in 10mL - 30mL of water or juice and stir before giving. (Same As: Carafate) Saline No Notes: Memoria Flush 0.9% 4-10 (Same as: l 02:00: BD Lane 00 Posiflush) Eliquis No Notes: Memoria 4-10 Same as: l 02:00: Eliquis Marty 00 Hydralazine No Notes: Caesar lisa Hydrochlori 4-10 (Same as: l de 50 MG 02:00: Apresoline Her mitchell Oral Tablet 00 ) May interfere w/enteral feedings Take With Food Sucralfate No Notes: May M emoria 4-10 interfere l 02:00: w/enteral Lane 00 feeds - Take 1 hr before or 2 hr after antacids, dairy pdt, meals & minerals - On empty stomach. For patients unable to swallow tablet, dissolve in 10mL - 30mL of water or juice and stir before giving. (Same As: Carafate) Saline No Notes: Memoria Flush 0.9% 4-10 (Same as: l 02:00: BD Lane 00 Posiflush) Eliquis No Notes: Memoria 4-10 Same as: l 02:00: Eliquis Marty Hydralazine No Notes: Caesar lisa Hydrochlori 4-10 (Same as: l de 50 MG 02:00: Apresoline Her mitchell Oral Tablet 00 ) May interfere w/enteral feedings Take With Food Sucralfate No Notes: May M emoria 4-10 interfere l 02:00: w/enteral Lane 00 feeds - Take 1 hr before or 2 hr after antacids, dairy pdt, meals & minerals - On empty stomach. For patients unable to swallow tablet, dissolve in 10mL - 30mL of water or juice and stir before giving. (Same As: Carafate) Saline No Notes: Memoria Flush 0.9% 4-10 (Same as: l 02:00: BD Lane Posiflush) Eliquis No Notes: Memoria 4-10 Same as: l 02:00: Eliquis Marty 00 Hydralazine No Notes: Caesar lisa Hydrochlori 4-10 (Same as: l de 50 MG 02:00: Apresoline Her mitchell Oral Tablet 00 ) May interfere w/enteral feedings Take With Food Sucralfate No Notes: May M emoria 4-10 interfere l 02:00: w/enteral Lane 00 feeds - Take 1 hr before [...] Memoria 4-10 Same as: l 02:00: Eliquis Lane 00 Hydralazine No Notes: Caesar lisa Hydrochlori 4-10 (Same as: l de 50 MG 02:00: Apresoline Her mitchell Oral Tablet 00 ) May interfere w/enteral feedings Take With Food Sucralfate No Notes: May M emoria 4-10 interfere l 02:00: w/enteral Lane 00 feeds - Take 1 hr before [...] Memoria 4-10 Same as: l 02:00: Eliquis Lane 00 Hydralazine No Notes: Caesar lisa Hydrochlori 4-10 (Same as: l de 50 MG 02:00: Apresoline Her mitchell Oral Tablet 00 ) May interfere w/enteral feedings Take With Food Sucralfate No Notes: May M emoria 4-10 interfere l 02:00: w/enteral Lane 00 feeds - Take 1 hr before or 2 hr after antacids, dairy pdt, meals & minerals - On empty stomach. For patients unable to swallow tablet, dissolve in 10mL - 30mL of water or juice and stir before giving. (Same As: Carafate) Saline No Notes: Memoria Flush 0.9% 4-10 (Same as: l 02:00: BD Lane Posiflush) Eliquis No Notes: Memoria 4-10 Same [...] not exceed l #3 00:12: 4gm/day of Lane acetaminop hen. (Same as: Tylenol with Codeine # 3) acetaminoph No Notes: Do M emoria en-codeine 4-10 not exceed l #3 00:12: 4gm/day of Marty acetaminop hen. (Same as: Tylenol with Codeine # 3) acetaminoph No Notes: Do M emoria en-codeine 4-10 not exceed l #3 00:12: 4gm/day of Lane acetaminop hen. (Same as: Tylenol with Codeine [...] oria 4-09 tab, l 22:00: Route: PO, Lane Drug form: TAB, BID, Dosing Weight 97.273, [...] oria 4-09 tab, l 22:00: Route: PO, Lane 00 Drug form: TAB, BID, Dosing Weight [...] a 4- (Same As: l 22:00: BuSpar) Lane 00 Lisinopril No 40 mg, 1 Mem oria 4- tab, l 22:00: Route: PO, Lane Drug form: TAB, BID, Dosing Weight 97.273, [...] Notes: Memoria 4-09 (Same l 17:07: as:MORPhin Lane 00 e Sulfate) Morphine No Notes: Memoria 4-09 (Same l 17:07: as:MORPhin Lane 00 e Sulfate) Morphine No Notes: Memoria 4-09 (Same l 17:07: as:MORPhin Marty 00 e Sulfate) Morphine No Notes: Memoria 4-09 (Same l 17:07: as:MORPhin Lane 00 e Sulfate) Morphine No Notes: Memoria 4-09 (Same l 17:07: as:MORPhin Marty 00 e Sulfate) Morphine 1-0 No Notes: Memoria 08-29 (Same l 17:07: as:MORPhin Lane 00 e Sulfate) buPROPion 2021-0 No 150 [...] tab, PO, l oral 15:27: Daily, # Lane enteric 00 30 tab, 0 coated Refill(s), tablet Pharmacy: [facility] 149, 162.56, cm, 08/29/20 5:30:00 CDT, Height, 97.273, kg, 08/29/20 5:30:00 CDT, Weight pantoprazol 2020-0 Yes 40 mg = 1 M emoria e 40 mg 4-09 tab, PO, l oral 15:27: Daily, # Lane enteric 00 30 tab, 0 coated Refill(s), tablet Pharmacy: [facility] 149, 162.56, cm, 08/29/20 5:30:00 CDT, Height, 97.273, kg, 08/29/20 5:30:00 CDT, Weight pantoprazol 1-0 Yes 40 mg = 1 M emoria e 40 mg 4-09 tab, PO, l oral 15:27: Daily, # Lane enteric 00 30 tab, 0 coated Refill(s), tablet Pharmacy: [facility] 149, 162.56, cm, 08/29/20 5:30:00 CDT, Height, 97.273, kg, 08/29/20 5:30:00 CDT, Weight pantoprazol 1-0 Yes 40 mg = 1 M emoria e 40 mg 4-09 tab, PO, l oral 15:27: Daily, # Lane enteric 00 30 tab, 0 coated Refill(s), tablet Pharmacy: [facility] 149, 162.56, cm, 08/29/20 5:30:00 CDT, Height, 97.273, kg, 08/29/20 5:30:00 CDT, Weight pantoprazol 2020-0 Yes 40 mg = 1 M emoria e 40 mg 4-09 tab, PO, l oral 15:27: Daily, # Lane enteric 00 30 tab, 0 coated Refill(s), [...] tab, PO, l oral 15:26: Daily, # Lane enteric 00 30 tab, 0 coated Refill(s) [...] tab, PO, l oral 15:26: Daily, # Lane enteric 00 30 tab, 0 coated Refill(s) [...] tab, PO, l oral 15:26: Daily, # Lane enteric 00 30 tab, 0 coated Refill(s) [...] tab, PO, l oral 15:26: Daily, # Lane enteric 00 30 tab, 0 coated Refill(s) [...] 0.9% 4-09 (Same as: l 15:25: BD Lane Posiflush) Lorazepam No Notes: Memori a 4-09 (Same as: l 15:25: Ativan) Lane Saline No Notes: Memoria Flush 0.9% 4-09 (Same as: l 15:25: BD Lane Posiflush) Lorazepam No Notes: Memori a 4-09 (Same as: l 15:25: Ativan) Marty Saline No Notes: Memoria Flush 0.9% 4-09 (Same as: l 15:25: BD Lane 00 Posiflush) Saline No Notes: Memoria Flush [...] 0.9% 4-09 (Same as: l 15:25: BD Lane 00 Posiflush) Lorazepam No Notes: Memori a 4-09 (Same as: l 15:25: Ativan) Saline No Notes: Memoria Flush 0.9% 4-09 (Same as: l 15:25: BD Lane 00 Posiflush) Lorazepam No Notes: Memori a 4-09 (Same as: l 15:25: Ativan) Isuprel HCl No Route: IV, Memoria (ANES) 0.2 08-29 Drug form: l mg + 15:00: INJ, Lane 00 Dosing Weight 97.3, kg, Start date: [...] Drug form: l mg + 15:00: INJ, Lane 00 Dosing Weight 97.3, kg, Start date: [...] Drug form: l mg + 15:00: INJ, Lane 00 Dosing Weight 97.3, kg, Start date: [...] Memori a 08-29 Route: l 14:01: IVP, Lane 00 Q5Min, Dosing Weight 97.273, kg, PRN [...] oria ne 08-29 Route: l 14:01: IVP, Lane 00 Q5Min, Dosing Weight 97.273, kg, PRN [...] Memori a 08-29 Route: l 14:01: IVP, Lane 00 Q2MIN, Dosing Weight 97.273, kg, PRN Narcotic Reversal, Start date: 08/29/20 9:01:00 CDT, Duration: 8 doses or times, Stop date: Limited # of times Ondansetron 1-0 No 4 mg, Memor ia 08-29 Route: l 14:01: IVP, ONCE, Lane 00 Dosing Weight 97.273, kg, PRN Nausea & Vomiting, Start date: 08/29/20 9:01:00 CDT Labetalol 2021-0 No 10 mg, Memori a 08-29 Route: l 14:01: IVP, Lane 00 Q5Min, Dosing Weight 97.273, kg, PRN Elevated BP, Start date: 08/29/20 9:01:00 CDT, Duration: 5 doses or times, Stop date: Limited # of times Acetaminoph 1-0 No 1,000 mg, M emoria en 08-29 Route: PO, l 14:01: Drug form: Lane 00 TAB, ONCE, Dosing Weight 97.273, kg, [...] Memori a 08-29 Route: l 14:01: IVP, Lane 00 Q2MIN, Dosing Weight 97.273, kg, PRN [...] Memori a 08-29 Route: l 14:01: IVP, Lane 00 Q5Min, Dosing Weight 97.273, kg, PRN [...] oria ne 08-29 Route: l 14:01: IVP, Lane 00 Q5Min, Dosing Weight 97.273, kg, PRN [...] Naloxone 1-0 No 0.4 mg, Memori a 4-09 Route: l 14:01: IVP, Lane 00 Q2MIN, Dosing Weight 97.273, kg, PRN Narcotic Reversal, Start date: 08/29/20 9:01:00 CDT, Duration: 8 doses or times, Stop date: Limited # of times Ondansetron 1-0 No 4 mg, Memor ia 08-29 Route: l 14:01: IVP, ONCE, Lane 00 Dosing Weight 97.273, kg, PRN Nausea [...] 08-29 Route: PO, l 14:01: Drug form: Lane 00 TAB, ONCE, Dosing Weight 97.273, kg, [...] Memori a 08-29 Route: l 14:01: IVP, Lane 00 Q5Min, Dosing Weight 97.273, kg, PRN [...] oria ne 08-29 Route: l 14:01: IVP, Lane 00 Q5Min, Dosing Weight 97.273, kg, PRN [...] ia 08-29 Route: l 14:01: IVP, ONCE, Lane 00 Dosing Weight 97.273, kg, PRN Nausea & Vomiting, Start date: 08/29/20 9:01:00 CDT Naloxone 2021-0 No 0.4 mg, Memori a 08-29 Route: l 14:01: IVP, Lane 00 Q2MIN, Dosing Weight 97.273, kg, PRN [...] 08-29 Route: PO, l 14:01: Drug form: Lane 00 TAB, ONCE, Dosing Weight 97.273, kg, [...] oria ne 08-29 Route: l 14:01: IVP, Lane 00 Q5Min, Dosing Weight 97.273, kg, PRN Pain Score 7-10, Start date: 08/29/20 9:01:00 CDT, Duration: 4 doses or times, Stop date: Limited # of times Flumazenil 2020-0 No 0.2 mg, Caesar lisa 08-29 Route: l 14:01: IVP, PRN, Lane 00 Dosing Weight 97.273, kg, PRN Benzodiaze [...] ia 08-29 Route: l 14:01: IVP, ONCE, Lane 00 Dosing Weight 97.273, kg, PRN Nausea & Vomiting, Start date: 08/29/20 9:01:00 CDT Labetalol 2020-0 No 10 mg, Memori a 08-29 Route: l 14:01: IVP, Lane 00 Q5Min, Dosing Weight 97.273, kg, PRN [...] oria ne 08-29 Route: l 14:01: IVP, Lane 00 Q5Min, Dosing Weight 97.273, kg, PRN [...] Memori a 08-29 Route: l 14:01: IVP, Lane 00 Q2MIN, Dosing Weight 97.273, kg, PRN [...] 08-29 Drug form: l 13:42: INJ, ONCE, Lane Stop date: 08/29/20 8:42:00 CDT fentaNYL 2020-0 No Route: IV, Mem oria (ANES) 08-29 Drug form: l 13:42: INJ, ONCE, Lane Stop date: 08/29/20 8:42:00 CDT norepinephr 2020-0 No Route: IV, Memoria ine (ANES) 08-29 Drug form: l 10 13:15: INJ, Start Marty microgram date: 08/29/20 8:15:00 CDT, Stop date: 08/29/20 9:15:00 CDT norepinephr 2020-0 No Route: IV, Memoria ine (ANES) 08-29 Drug form: l 10 13:15: INJ, Start Lane microgram date: 08/29/20 8:15:00 CDT, Stop date: [...] 4-09 Total l 0.9% IV 12:30: Volume: Lane (ANES) 1000 00 1,000, mL Start date: 08/29/20 7:30:00 CDT, Stop date: 08/29/20 8:30:00 CDT Sodium 2020-0 No Route: IV, Memor ia Chloride 4-09 Total l 0.9% IV 12:30: Volume: Lane (ANES) 1000 00 1,000, mL Start date: 08/29/20 7:30:00 CDT, Stop date: 08/29/20 8:30:00 CDT Sodium 2020-0 No Route: IV, Memor ia Chloride 4-09 Total l 0.9% IV 12:30: Volume: Marty (ANES) 1000 00 1,000, mL Start date: 08/29/20 7:30:00 CDT, Stop date: 08/29/20 8:30:00 CDT Sodium 2020-0 No Route: IV, Memor ia Chloride 4-09 Total l 0.9% IV 12:30: Volume: Lane (ANES) 1000 00 1,000, mL Start date: [...] PO, l Hydrochlori 11:42: Q24H, # 30 Lane de 150 MG 00 tab, 0 Extended Refill(s) Release Tablet 24 HR Yes 150 mg = 1 Memori a Bupropion 4-09 tab, PO, l Hydrochlori 11:42: Q24H, # 30 Lane de 150 MG 00 tab, 0 Extended Refill(s) Release Tablet apixaban 0 Yes 5 mg, PO, Me moria MG Oral 4 Q12H, tab, l Tablet 11:41: 0 Marty [Eliquis] 00 Refill(s), For Atrial Fibrilatio n apixaban 2020-0 Yes 5 mg, PO, Me moria MG Oral 4- Q12H, tab, l Tablet 11:41: 0 Lane [Eliquis] 00 Refill(s), For Atrial Fibrilatio n [...] 4- Q12H, tab, l Tablet 11:41: 0 Lane [Eliquis] 00 Refill(s), For Atrial Fibrilatio n [...] tab, PO, l tablet 11:38: Daily, # Lane 00 90 tab, 3 Refill(s) AMIODarone 2020-0 Yes 200 mg = 1 M emoria 200 mg oral 4-09 tab, PO, l tablet 11:38: Daily, # Lane 00 90 tab, 3 Refill(s) AMIODarone 2020-0 [...] tab, PO, l tablet 11:38: Daily, # Lane 00 90 tab, 3 Refill(s) AMIODarone Yes [...] No 1,000 mL, Memori a saline 0.9% -09 Rate: 100 l IV 1,000 mL 10:30: [...] mouth ity of 10 mg 08:06: daily. [place] tablet 41 Medical Branch esomeprazol 2019- Yes 40mg Take 40 mg Univers e (NEXIUM) 0-12 by mouth 2 ity of 40 mg 08:06: (two) [place] capsule 41 times Medical daily. Branch hydralAZINE 2019-05 Yes 25mg Take 25 mg Univers (APRESOLINE 0-12 by mouth ity of ) 25 mg 08:06: daily. [place] tablet 41 Medical Branch lisinopril 2019-05 Yes [...] mouth ity of 10 mg 08:06: daily. [place] tablet 41 [facility] Branch esomeprazol 2019-05 Yes 40mg [...] Filled Immunization Date Status Comments [facility] e Immunization Name Name [facility] COVID-19 2020-07-23 Completed [facility] MRNA VACCINATION 00:00:00 [facility] PFIZER COVID-19 2020-07-02 Completed [facility] MRNA VACCINATION 00:00:00 [facility] Influenza Virus 2017-03-08 Completed Universit y of Vaccine 00:00:00 [facility] Influenza Virus 2017-03-08 Completed Universit y of Vaccine 00:00:00 [facility] Influenza Virus 2014-01-30 Completed Universit y of Vaccine (3+ yrs) 00:00:00 [facility] dical Branch Pneumococcal 13 2014-01-30 Completed Universit y of Conjugate, PCV13 00:00:00 [facility] dical (Prevnar 13) [place] Influenza Virus 2014-01-30 Completed Universit y of Vaccine (3+ yrs) 00:00:00 [facility] dical Branch Pneumococcal 13 2014-01-30 Completed Universit y of Conjugate, PCV13 00:00:00 [facility] dical (Prevnar 13) Branch Pneumococcal 2012-02-16 Completed University o f Polysaccharide, 00:00:00 [place] Med ical PPSV23 (PNEUMOVAX) Branch Influenza Virus 2012-02-16 Completed Universit y of Vaccine 00:00:00 [facility] PPD (TB) 2012-02-16 Completed University of 00:00:00 [facility] Pneumococcal 2012-02-16 Completed University o f Polysaccharide, 00:00:00 [place] Med ical PPSV23 (PNEUMOVAX) Branch Influenza Virus 2012-02-16 Completed Universit y of Vaccine 00:00:00 [facility] PPD (TB) 2012-02-16 Completed University of 00:00:00 [facility] Hep B, Adol or Pedi 2011-09-01 Completed Unive rsity of Dosage 00:00:00 [facility] Hep B, Adol or Pedi 2011-09-01 Completed Unive rsity of Dosage 00:00:00 [facility] Hep B, Adol or Pedi 2011-03-17 Completed Unive rsity of Dosage 00:00:00 [facility] Hep B, Adol or Pedi 2011-03-17 Completed Unive rsity of Dosage 00:00:00 [facility] Influenza Virus 2011-02-10 Completed Universit y of Vaccine 00:00:00 [facility] Hep B, Adol or Pedi 2011-02-10 Completed Unive rsity of Dosage 00:00:00 [facility] Influenza Virus 2011-02-10 Completed Universit y of Vaccine 00:00:00 [facility] Hep B, Adol or Pedi 2011-02-10 Completed Unive rsity of Dosage 00:00:00 [facility] PPD (TB) 2010-11-18 Completed University of 00:00:00 [facility] TDAP (ADACEL) 2010-11-18 Completed University of VACCINE 00:00:00 [facility] PPD (TB) 2010-11-18 Completed University of 00:00:00 [facility] TDAP (ADACEL) 2010-11-18 Completed University of VACCINE 00:00:00 [facility] HEPATITIS A 2004-03-02 Completed University of 00:00:00 [facility] HEPATITIS A 2004-03-02 Completed University of 00:00:00 [place] [facility] HEPATITIS A 2003-08-01 Completed University of 00:00:00 [facility] HEPATITIS A 2003-08-01 Completed University of 00:00:00 [facility] Pneumococcal 2001-10-04 Completed University o f Polysaccharide, 00:00:00 [place] Med ical PPSV23 (PNEUMOVAX) Branch PPD (TB) 2001-10-04 Completed University of 00:00:00 [facility] Pneumococcal 2001-10-04 Completed University o f Polysaccharide, 00:00:00 [place] Med ical PPSV23 (PNEUMOVAX) Branch PPD (TB) 2001-10-04 Completed University of 00:00:00 [facility] Vital Signs Vital Name Observation Time Observation Value Comments Source Systolic blood 2021-10-25 01:00:00 153 mm[Hg] Univer sity of pressure [facility] Diastolic blood 2021-10-25 01:00:00 81 mm[Hg] Unive rsity of [facility] Heart rate 2021-10-25 01:00:00 65 /min [facility] Respiratory rate 2021-10-25 01:00:00 17 /min [facility] saturation in 2021-10-25 01:00:00 97 /min University of Arterial blood by [place] [employer] Pulse oximetry Branch Body temperature 2021-10-24 21:25:00 36.78 [facility] Body weight 2021-10-24 21:25:00 95.255 kg [facility] BMI 2021-10-24 21:25:00 36.05 kg/m2 [facility] Systolic blood 2021-10-24 05:02:00 150 mm[Hg] Univer sity of [facility] Diastolic blood 2021-10-24 05:02:00 97 mm[Hg] Unive rsity of [facility] Heart rate 2021-10-24 05:02:00 68 /min [facility] Respiratory rate 2021-10-24 05:02:00 15 /min [facility] Oxygen saturation in 2021-10-24 05:02:00 96 /min University of Arterial blood by [facility] Pulse oximetry Branch Body temperature 2021-10-24 01:06:00 36.06 [facility]a [facility] Body height 2021-10-24 01:06:00 162.6 cm [facility] Body weight 2021-10-24 01:06:00 95.255 kg [facility] BMI 2021-10-24 01:06:00 36.05 kg/m2 [facility] Systolic blood 2021-07-14 15:18:00 142 mm[facility]Hg[facility] Diastolic blood 2021-07-14 15:18:00 76 mm[Hg] [facility] Heart rate 2021-07-14 15:18:00 61 [facility] height 2021-07-14 15:18:00 162.6 cm [facility] Body weight 2021-07-14 15:18:00 94.802 kg [facility] BMI 2021-07-14 15:18:00 35.87 kg/m2 [facility] Systolic blood 2020-12-08 15:48:00 125 mm[Hg] Method [facility] pressure Diastolic blood 2020-12-08 15:48:00 76 mm[Hg] [facility] pressure Heart rate 2020-12-08 15:48:00 64 /min [facility] [place] [facility] Body temperature 2020-12-08 15:48:00 36.61 Amina [facility] Respiratory rate 2020-12-08 15:48:00 17 /min [facility] Body height 2020-12-08 15:48:00 162.6 cm [facility] Body weight 2020-12-08 15:48:00 98.884 kg [facility] BMI 2020-12-08 15:48:00 37.42 kg/m2 [facility] Oxygen saturation in 2020-12-08 15:48:00 97 /min [facility] Arterial blood by Pulse oximetry Respitory Rate 2020-08-30 13:00:00 Memori al Marty Systolic (mm Hg) 2020-08-30 13:00:00 Caesar rial Marty Diastolic (mm Hg) 2020-08-30 13:00:[address] Systolic (mm Hg) 2020-08-30 11:00:[address] Diastolic (mm Hg) 2020-08-30 11:00:00 Mem orial Marty Temperature Oral (F) 2020-08-30 11:00:00 98.4 F [facility] Respitory Rate 2020-08-30 11:00:00 Memori al Marty Respitory Rate 2020-08-30 10:00:00 Memori al Marty Systolic (mm Hg) 2020-08-30 10:00:[address] Diastolic (mm Hg) 2020-08-30 10:00:[address] Temperature Oral (F) 2020-08-30 00:00:[address] Temperature Oral (F) 2020-08-29 11:26:00 97.6 F [facility] Height 2020-08-29 10:30:00 162.56 cm [facility] Weight 2020-08-29 10:30:00 [facility] BMI Calculated 2020-08-29 10:30:[address] Procedures Procedure Date / Time Performing Clinician Source Performed URINALYSIS 2021-10-24 23:15:00 Reilly Means [facility] CT LUMBAR SPINE WO 2021-10-24 22:42:12 Reilly Means [facility] CONTRAST [facility] CT ANGIOGRAM 2021-10-24 22:42:12 Reilly Means [facility] ABDOMEN/PELVIS [facility] COMP. METABOLIC PANEL 2021-10-24 22:09:00 Reilly Means [facility] ([id number]) [facility] CBC WITH DIFF 2021-10-24 22:09:00 Reilly Means [facility] PROTHROMBIN TIME / INR 2021-10-24 22:09:00 Reilly Means [facility] ACTIVATED PARTIAL THRMPLAS 2021-10-24 22:09:00 [facility] FOR 2021-10-24 21:20:36 Doctor Unassigned, [facility] DIAGNOSIS AND TREATMENT [facility] URINALYSIS 2021-10-24 04:48:[address] [facility] XR LUMBAR SPINE 3 VW 2021-10-24 04:20:48 Charity Mcallister [facility] [place] [facility] BASIC METABOLIC PANEL (NA, 2021-10-24 03:24:00 Charity Mcallister [facility] K, CL, CO2, GLUCOSE, BUN, Medica l Branch CREATININE, CA) CBC WITH DIFF 2021-10-24 03:24:[address] [facility] BLOOD CULTURE SCREEN 2021-10-24 03:24:00 Charity Mcallister [facility] NOTICE OF PRIVACY 2021-10-24 00:58:14 Doctor Unassigned, [facility] PRACTICES [facility] CONSENT/REFUSAL FOR 2021-10-24 00:57:32 Doctor Unassigned, [facility] DIAGNOSIS AND TREATMENT [facility] ECG 12-LEAD 2021-07-14 15:14:00 Elan Lira [facility] [id number] 2021-06-17 00:00:00 RIKY [facility] Clear [facility] GASTROINTESTINAL PANEL 2020-12-08 22:21:00 Eliseo Glaser [facility] XR ABDOMEN 1 VW 2020-12-08 18:06:32 Eliseo Glaser spital OR [place] < 1 HOUR 2020-09-05 22:39:00 Eliseo Glaser spital SURGICAL PATHOLOGY REQUEST 2020-09-05 21:54:00 Eliseo Glaser [facility] XR CHEST 1 VW PORTABLE 2020-09-05 19:55:00 [facility]IENT 2020-09-05 17:27:55 Lucas Harris [facility] UT AN ELECTIVE 2020-09-05 16:47:23 [facility]GD, INTRAOPERATIVE 2020-09-05 16:27:00 [facility]IN 2020-09-05 15:04:00 Sarai Maharaj [facility] TIME (PTT) M. PROTHROMBIN TIME WITH INR 2020-09-05 15:04:00 Mindy Maharaj [facility] M. Plan of Care Planned Activity Planned Date Details Comments Source Future Scheduled 2021-08-26 Screening for [facility] Test 13:02:23 malignant neoplasm of cervix (procedure) [code = 598779026] Future Scheduled 2021-08-26 BREAST CANCER [facility] Test 13:02:23 SCREENING [code = BREAST CANCER SCREENING] Future Scheduled 2021-08-26 COLONOSCOPY SCREENING [facility] Test 13:02:23 [code = COLONOSCOPY SCREENING] Future Scheduled 2021-08-26 Screening for [facility] Test 13:02:23 malignant neoplasm of lung (procedure) [code = 461272558] Future Scheduled 2021-08-26 SHINGLES VACCINES (#1) [facility] Test 13:02:23 [code = SHINGLES VACCINES (#1)] Future Scheduled 2021-08-26 COVID-19 VACCINE (3 - Me [facility] Test 13:02:23 Pfizer risk 4-dose series) [code = COVID-19 VACCINE (3 - Pfizer risk 4-dose series)] Future Scheduled 2021-08-26 65+ PNEUMOCOCCAL [facility] Test 13:02:23 VACCINE (4 of 4 - PPSV23) [code = 65+ PNEUMOCOCCAL VACCINE (4 of 4 - PPSV23)] Future Scheduled 2021-08-26 INFLUENZA VACCINE Method [facility] Test 13:02:23 [code = INFLUENZA VACCINE] Encounters Start End Encounter Admission Attending Care Care Encounter Source Date/Time Date/Time Type Type Clinicians Facility Department ID 2021-08-03 Inpatient WINTER Lund OUTD [id number] [facility] 11:30:00 Mike [id number] [facility] 2021-07-14 Outpatient PANKAJ [facility] [id number] [place] 09:33:51 [facility] 2021-06-16 Inpatient WINTER Leal OUTD [id number] [facility] 08:30:00 Mike [id number] [facility] 2021-06-15 Inpatient WINTER Leal OUTD [id number] [facility] 10:30:00 Mike [id number] [facility] 2021-10-24 2021-10-24 Emergency David MCALLISTER TNCAMDEN ERT [id number] Univers 16:27:00 22:26:00 CHARITY barbosa [facility] 2021-10-24 2021-10-24 Emergency Reilly Means [facility] 1.2.840. 114 [id number] Univers 16:27:00 22:26:00 Charity Mcallister [place] 350.1.13.10 ity of [facility] 4.2.7.2.686 [facility] [id number] [address] 2021-10-23 2021-10-24 [facility] [id number] [facility] 20:22:00 02:57:00 Charity Gonzales [place] 350.1.13.10 ity of [place] 4.2.7.2.686 [facility] [id number] [address] 2021-10-23 2021-10-24 Emergency [facility] [id number] Univers 20:22:00 02:57:00 CHARITY ity [facility] 2021-08-05 2021-08-05 Outpatient RAUL LundWINTER HCACL [id number] [facility] 05:24:00 05:24:00 Mike 31 [facility] 2021-08-05 2021-08-05 Outpatient RAUL StoneWINTER vega OUTD [id number] [facility] 05:24:00 05:24:00 Mike [id number] [facility] 2021-07-14 2021-07-14 Office Pankaj, KIMBERLEY 6400 1.2.840.114 [id number] [place] 08:45:00 09:34:[address] 350.1.13.58 Health 9.2.7.2.686 [id number] 1 2021-07-09 2021-07-09 Telephone Kinjal, UTP 6400 1.2.840.114 [id number] [place] 00:00:00 00:00:[address] 350.1.13.58 Health 9.2.7.2.686 [id number] 1 2021-06-17 2021-06-17 Inpatient RAUL LundWINTER INTE.02 [id number] [facility] 10:56:00 14:36:00 Mike [id number] [facility] 2021-06-17 2021-06-17 Inpatient EDUARDO LealCL INTE.02 [id number] [facility] 10:56:00 14:36:[address] [place] [address] 2021-04-28 2021-04-28 Telephone Yazmin, 1.2.840.2 [id number] Methodi 00:00:00 00:00:[address] 3.430.2.7 Hospit a .3.043268 l .8 2021-03-31 2021-03-31 Orders Carol Ann, 1.2.840.1 [id number] Methodi 00:00:00 00:00:00 Only Sarai Lieberman 85318.1.1 979 s t 3.430.2.7 Hospit a .3.574717 l .8 2021-03-24 2021-03-24 Telephone Yazmin, 1.2.840.6 [id number] Methodi 00:00:00 00:00:[address] 3.430.2.7 Hospit a .3.622322 l .8 2021-01-19 2021-01-19 Telephone Prabhu, 1.2.840.1 [id number] 2100 [id number] Methodi 00:00:00 00:00:[address] 3.430.2.7 Hospit a .3.417756 l .8 2020-12-12 2020-12-12 Office Hematpour, [facility] 6400 1.2.840.114 [id number] 07:42:02 08:18:[address] 350.1.13.58 9.2.7.2.686 [id number] 1 2020-12-09 2020-12-09 Telephone Carol Ann, 1.2.840.1 [id number] Methodi 00:00:00 00:00:00 Sarai Lieberman 72401.1.1 316 s t 3.430.2.7 Hospit a .3.177613 l .8 2020-12-08 2020-12-08 [facility] 1.2.840.1 [id number] 2100 [id number] Methodi 12:35:54 23:59:00 Encounter Ray 86722.1.[address] 3.430.2.7 Hospit a .3.848712 l .8 2020-12-08 2020-12-08 Lab [facility], 1.2.840.1 [id number] [id number] Methodi 17:25:00 17:30:[address] 3.430.2.7 Hospit a .3.988633 l .8 2020-12-08 2020-12-08 Office [facility], 1.2.840.1 [id number] Methodi 10:30:00 11:39:56 Visit Ray 22752.1.[address] 3.430.2.7 Hospit a .3.884740 l .8 2020-12-08 2020-12-08 Travel 1.2.840.1 1.2.535.016 4539 [id number] Methodi 00:00:00 00:00:[address] 3.430.2.7 0.2.7.3.698 Ho spita .3.542913 084.8 l .8 2020-12-02 2020-12-02 [facility] 1.2.840.114 [id number] 10:20:06 10:36:19 Visit HEALTH 350.1.13.10 [facility] 4.2.7.2.686 [id number] 2020-11-25 2020-11-25 Office MEGHA Beltran 1.2.840.114 [id number] 11:06:30 11:58:14 Visit Robbi Hairston TUGGER OPERATOR 350.1.13.10 [facility] 4.2.7.2.686 MATERNAL [id number] & CHILD [address] [place] [address] 2020-11-25 2020-11-25 Telephone MEGHA Beltran 1.2.422.176 [id number] 00:00:00 00:00:00 Rosjolie R TUGGER OPERATOR 350.1.13.10 [facility] 4.2.7.2.686 MATERNAL [id number] & CHILD [address] [place] [address] 2020-11-25 2020-11-25 [facility] 1.2.563.195 [id number] 00:00:00 00:00:00 [facility] 350.1.13.10 [facility] 4.2.7.2.686 [id number] 2020-11-14 2020-11-14 Abstract Clark, 1.2.840.1 [id number] Methodi 00:00:00 00:00:[address] 3.430.2.7 Hospit a .3.760676 l .8 2020-11-14 2020-11-14 Telephone Clark, 1.2.840.1 [id number] [id number] Methodi 00:00:00 00:00:[address] 3.430.2.7 Hospit a .3.555503 l .8 2020-11-07 2020-11-07 Telephone KIMBERLEY Ortiz 6400 1.2.840.114 [id number] 00:00:00 00:00:[address] 350.1.13.58 9.2.7.2.686 [id number] 1 2020-10-27 2020-10-27 Telephone Yazmin 1.2.840.4 [id number] Methodi 00:00:00 00:00:[address] 3.430.2.7 Hospit a .3.310133 l .8 2020-10-24 2020-10-24 Telephone Clark, 1.2.840.1 [id number] [id number] Methodi 00:00:00 00:00:[address] 3.430.2.7 Hospit a .3.450966 l .8 2020-10-06 2020-10-12 Telemedici Yazmin 1.2.840.1 [id number] Methodi 15:30:00 00:08:46 ne Ray 97608.1.[address] 3.430.2.7 Hospit a .3.785491 l .8 2020-09-30 2020-09-30 [facility], 1.2.840.1 [id number] Methodi 00:00:00 00:00:[address] 3.430.2.7 Hospit a .3.152880 l .8 2020-09-21 2020-09-21 [facility] 1.2.840.1 1.2.649.160 [id number] Methodi 00:00:00 00:00:[address] 3.430.2.7 0.2.7.3.698 Ho spita .3.422897 084.8 l .8 2020-09-06 2020-09-06 [facility] 1.2.840.1 [id number] Methodi 17:42:30 23:59:[address] 3.430.2.7 Hospit a .3.860862 l .8 2020-09-06 2020-09-06 [facility], 1.2.840.1 [id number] 2100 [id number] Methodi 16:50:00 17:41:00 Encounter Ray [address]83.1.[address] 3.430.2.7 Hospit a .3.014909 l .8 2020-09-05 2020-09-05 [facility], 1.2.840.1 [id number] 2100 [id number] Methodi 09:17:00 19:45:00 Encounter Ray [address]358.1.[address] 3.430.2.7 Hospit a .3.309733 l .8 2020-09-05 2020-09-05 [facility], 1.2.840.1 [id number] Methodi 11:30:00 13:15:[address] 3.430.2.7 Hospit a .3.537309 l .8 2020-09-05 2020-09-05 Anesthesia Remigio, 1.2.840.1 [id number] Methodi 11:27:00 12:20:00 Event Kirit 13643.1.1 243 s t V. 3.430.2.7 Hospit a .3.601047 l .8 2020-09-05 2020-09-05 Travel 1.2.840.1 1.2.273.940 [id number] Methodi 00:00:00 00:00:[address] 3.430.2.7 0.2.7.3.698 Ho spita .3.246625 084.8 l .8 2020-09-04 2020-09-04 Telephone Meisenbach, 1.2.840.1 [id number] Methodi 00:00:00 00:00:00 Saari Lieberman 90662.1.1 762 s t 3.430.2.7 Hospit a .3.511101 l .8 2020-09-02 2020-09-02 Telephone Meisenbach, 1.2.840.8 [id number] Methodi 00:00:00 00:00:00 Sarai Lieberman 92527.1.1 344 s t 3.430.2.7 Hospit a .3.420710 l .8 2020-08-29 2020-08-30 Bedded [facility] [id number] [facility] 10:20:00 14:10:00 Outpatient [facility] 00 [facility] 2020-08-29 2020-08-30 Outpatient HEMATPOUR, [facility] CAR 7500 [facility] 05:20:00 09:10:00 [place] Results Test Description Test Time Test Comments Results Result Comments Source COMP. METABOLIC PANEL (62340) 2021-10-24 22:57:37 Test Item Value Reference Range Interpretation Comme nts NA (test code = 8734623252) 141 mmol/L 135-145 K (test code = 4243243221) 3.6 mmol/L 3.5-5.0 CL (test code = 7026253924) 106 mmol/L 98-108 CO2 TOTAL (test code = 9784031469) 27 mmol/L 23-31 AGAP (test code = 4206032661) 2-16 BUN (test code = 9517643869) 23 mg/dL 7-23 GLUCOSE (test code = 7061107000) 92 mg/dL 70-110 CREATININE (test code = 0.98 mg/dL 0.50-1.04 1778361749) TOTAL BILI (test code = 0.5 mg/dL 0.1-1.8 7877004117) CALCIUM (test code = 0221319016) 8.5 mg/dL 8.6-10.6 L T PROTEIN (test code = 9123578830) 6.2 g/dL 6.3-8.2 L ALBUMIN (test code = 0218175290) 3.5 g/dL 3.5-5.0 ALK PHOS (test code = 4966441386) 80 U/L 34-122 ALTv (test code = 1742-6) 18 U/L 5-35 AST(SGOT) (test code = 3374095377) 44 U/L 13-40 H eGFR (test code = 7748468636) mL/min/1.73m2 KYLE (test code = KYLE) Association [...] tests). Lab Interpretation (test code = Abnormal 82417-0) [facility] THRM[facility] [id number] 22:54:36 Test Item Value Reference Range Interpretation Comments APTT Patient (test See_Comment [Automat ed code = 3173-2) message] The system which generated this result transmitted reference range : 23 - 38 Seconds . The reference range was not used to interpr et this result as normal/abnormal . KYLE (test code = KYLE) The [facility] patient population mean normal value for aPTT is 30 seconds. Lab Interpretation Normal (test code = 94788-0) [facility] TIME / [id number] 22:52:36 Test Item Value Reference Range Interpretation [...] tions. Lab Interpretation (test Normal code = 71022-8) [facility] WITH [id number] 22:42:34 Test Item Value Reference Range Interpretation Comments WBC (test code = See_Comment L [Automated 0190-2) message] The sy stem which generated this result transmitted reference range : 4.30 - 11.10 10*3/?L. The reference range was not used to interpret this result as normal/abnormal . RBC (test code = See_Comment L [Automated 179-8) message] The sy stem which generated this [...] RDW-SD (test code = 47.8 fL 39.0-49.9 93840-3) RDW-CV (test code = 17.1 % 12.0-15.5 H 788-0) PLT (test code = See_Comment [Automated 777-3) message] The sy stem which generated this result transmitted reference range : 166 - 358 10*3/ ?L. The reference r abbey was not used to interpret this result as normal/abnormal . MPV (test code = 9.5 fL 9.5-12.9 55728-2) NRBC/100 WBC (test See_Comment [Automat ed code = 3993854813) message] The system which generated this result transmitted reference range : 0.0 - 10.0 /100 WBCs. The refer ence range was not u sed to interpret th is result as normal/abnormal . NRBC x10^3 (test code <0.01 See_Comment [Auto mated = [id number]) message] The s ystem which generated this result transmitted reference range : 10*3/?L. The reference range was not used to interpret this result as normal/abnormal . GRAN MAT (NEUT) % 67.5 % (test code = 770-8) IMM GRAN % (test code 0.30 % = [id number]) LYMPH % (test code = 19.8 % 736-9) MONO % (test code = 11.3 % 5905-5) EOS % (test code = 0.8 % 713-8) BASO % (test code = 0.3 % 706-2) GRAN MAT x10^3(ANC) 2.71 10*3/uL 1.88-7.09 (test code = [id number]) IMM GRAN x10^3 (test <0.03 0.00-0.06 code = [id number]) LYMPH x10^3 (test code 0.79 10*3/uL 1.32-3.29 L = 731-0) MONO x10^3 (test code 0.45 10*3/uL 0.33-0.92 = 742-7) EOS x10^3 (test code = 0.03 10*3/uL 0.03-0.39 711-2) BASO x10^3 (test code <0.03 0.01-0.07 = 704-7) Lab Interpretation Abnormal (test code = 42490-2) [place] [facility] METABOLIC PANEL (NA, K, CL, CO2, GLUCOSE, BUN, CREATININE, CA)2021-10-24 03:48:20 Test Item Value Reference Range Interpretation Comments NA (test code = 142 mmol/L 135-145 7481214382) K (test code = 3.9 mmol/L 3.5-5.0 3098931768) CL (test code = 105 mmol/L 98-108 7041312369) CO2 TOTAL (test code = 26 mmol/L 23-31 8400219435) AGAP (test code = 2-16 9749824132) BUN (test code = 26 mg/dL 7-23 H 1361696770) GLUCOSE (test code = 92 mg/dL 70-110 7537942336) CREATININE (test code = 0.97 mg/dL 0.50-1.04 1925452524) CALCIUM (test code = 8.8 mg/dL 8.6-10.6 2697881933) eGFR (test code = mL/min/1.73m2 8797615338) KYLE (test code = KYLE) Association of [...] tests). Lab Interpretation Abnormal (test code = 11813-9) [facility] WITH [id number] 03:39:42 Test Item Value Reference Range Interpretation Comments WBC (test code = See_Comment [Automated 0290-2) message] The sy stem which generated this result transmitted reference range : 4.30 - 11.10 10*3/?L. The reference range was not used to interpret this result as normal/abnormal . RBC (test code = See_Comment [Automated 961-8) message] The sy stem which generated this [...] RDW-SD (test code = 47.7 fL 39.0-49.9 65104-1) RDW-CV (test code = 17.0 % 12.0-15.5 H 788-0) PLT (test code = See_Comment [Automated 777-3) message] The sy stem which generated this result transmitted reference range : 166 - 358 10*3/ ?L. The reference r abbey was not used to interpret this result as normal/abnormal . MPV (test code = 10.3 fL 9.5-12.9 08231-9) NRBC/100 WBC (test See_Comment [Automat ed code = 5759159585) message] The system which generated this result transmitted reference range : 0.0 - 10.0 /100 WBCs. The refer ence range was not u sed to interpret th is result as normal/abnormal . NRBC x10^3 (test code <0.01 See_Comment [Auto mated = 8302365610) message] The s ystem which generated this result transmitted reference range : 10*3/?L. The reference range was not used to interpret this result as normal/abnormal . GRAN MAT (NEUT) % 65.1 % (test code = 770-8) IMM GRAN % (test code 0.40 % = 2622429840) LYMPH % (test code = 24.0 % 736-9) MONO % (test code = 9.7 % 5905-5) EOS % (test code = 0.4 % 713-8) BASO % (test code = 0.4 % 706-2) GRAN MAT x10^3(ANC) 2.95 10*3/uL 1.88-7.09 (test code = 4439817162) IMM GRAN x10^3 (test <0.03 0.00-0.06 code = 4051244033) LYMPH x10^3 (test code 1.09 10*3/uL 1.32-3.29 L = 731-0) MONO x10^3 (test code 0.44 10*3/uL 0.33-0.92 = 742-7) EOS x10^3 (test code = <0.03 0.03-0.39 L 711-2) BASO x10^3 (test code <0.03 0.01-0.07 = 704-7) Lab Interpretation Abnormal (test code = 38345-2) [facility] Coronavirus 2019 Sxbutwc4425-53-19 18:08:00 Test Item Value Reference Range Interpretation [...] det ection of nucleic acids f rom tyeLRLG-YmK-2 v irus and diagnosis of SA RS-CoV-2 virusinfection. It is an Emergency Use Authorization ( EUA) testauthorized by the U.S. FDA. BASIC METABOLIC UUSYS1924-44-29 09:37:00 Test Item Value Reference Range Interpretation [...] 9.0 mg/dL 8.0-10.5 N CA) CBC W/AUTO IGNL6809-22-15 09:32:00 Test Item Value Reference Range Interpretation [...] REQUIRED (test code NO = MDIFF) PROTHROMBIN SSFG9611-76-79 09:32:00 Test Item Value Reference Range Interpretation [...] o prevent recurre nt infarct). 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 [facility] - XR CHEST 1 [id number] 00:00:00 [facility] WESTLAKEName: LIO WATTS : 1955 Sex: F FAX: Lele Olivera DO [phone] [place]: St: ADM FAX: Jean Paul Scales MD [phone] FAX: Bahman Chopra [phone] Name: LIO WATTS [facility] : 1955 Age/S: 66/F [address] [place] [address] Unit #: [id number] Loc: [place] [address] Phys: Bahman Chopra CAMP GUARD Acct: [id number] Dis Date: Status:ADM IN PHONE #: [phone] Exam Date: 06/17/2021 1320 FAX #: [phone] Reason: WATCHMAN EXAMS: CPT CODE: [id number] XR CHEST 1 V 07388 PROCEDURE INFORMATION: Exam: XR Chest Examdate and [...] Chopra Technologist: RT Taylor(R) Trnscrd Date/Time/By: 06/17/2021 (7019) : By: Susanna Orig Print D/T: S: 06/17/2021 (4176) PAGE 1 Signed ReportCOVID 19 Asymptomatic IH [id number] 12:29:00 Test Item Value Reference Range Interpretation [...] high or waivedcomplexit y tests. BASIC METABOLIC [id number] 11:37:00 Test Item Value Reference Range Interpretation [...] code = 9.0 mg/dL 8.0-10.5 N CA) NQEUKWLDZH3200-94-65 11:37:00 Test Item Value Reference Range Interpretation Comments PREALBUMIN (test code = PREALB) 24.3 mg/dL 16.0-40.0 N PROTHROMBIN CPAC7203-57-45 11:03:00 Test Item Value Reference Range Interpretation [...] o prevent recurre nt infarct). CBC W/AUTO MEZI6351-85-02 10:59:00 Test Item Value Reference Range Interpretation [...] 0.0-0.1 N NRBC#) - XR CHEST 2 [id number] 00:00:00 [facility] 1955 Sex: F FAX: Lele Olivera DO [phone] [place]: St: PRE FAX: Jean Paul Scales MD [phone] Name: LIO WATTS [facility] : 1955 Age/S: 66/F [address] [place] [address] Blvd Unit #: [id number] Loc: [place] [address] Phys: Mike Lund [facility] [id number] Dis Date: Status: [place] [facility] [place] #: [phone] Exam Date: 06/16/2021 1120 FAX #: [phone] Reason: PREOP EXAMS: CPT CODE: [id number] XR CHEST 2 V 65573 PROCEDURE INFORMATION: Exam: XR Chest Exam date [...] MD Technologist: RT Andree(R) Trnscrd Date/Time/By: 06/16/2021 (1137) : By: [email or web address] Orig Print D/T: S: 06/16/2021 (3488) PAGE 1 Signed ReportGastrointestinal deadz0478-32-53 04:35:05 Test Item Value Reference Interpretation Comments [...] Rotavirus PCR (test Not Detected code = 1722781) Salmonella PCR (test Not Detected code = [...] PCR Not Detected (test code = 7124) [facility] dwazkkr7849-29-83 19:30:47 Test Item Value Reference Range Interpretation Comments Case number (test [id number] code = 1000367) Surgical pathology See link below for PDF report (test code = Lab Report 2255) Result status (test This is Supplemental code = 4979167) Report for [id number] [facility]2021-04-09 16:31:00 Test Item Value Reference Range Interpretation Comments POC Activated Clotting Time (test code 153 s = POC Activated Clotting Time) [facility] HospitalDmluoorTWNNCVQUHY6954-34-48 16:31:00 Test Item Value Reference Range Interpretation Comments POC Activated Clotting Time (test code 153 s = POC Activated Clotting Time) [facility] HospitalIfzfgeyVXXQOQSOUD4737-53-78 16:31:00 Test Item Value Reference Range Interpretation Comments POC Activated Clotting Time (test code 153 s = POC Activated Clotting Time) [facility] HospitalSvobyvtFQISTPQMUQ5954-61-80 16:31:00 Test Item Value Reference Range Interpretation Comments POC Activated Clotting Time (test code 153 s = POC Activated Clotting Time) [facility] HospitalKvfstioUUOTCAHHTR8403-38-36 16:31:00 Test Item Value Reference Range Interpretation Comments POC Activated Clotting Time (test code 153 s = POC Activated Clotting Time) [facility] HospitalGddtzepMVYUDRYJUM4376-98-58 16:31:00 Test Item Value Reference Range Interpretation Comments POC Activated Clotting Time (test code 153 s = POC Activated Clotting Time) [facility] HospitalXobparfBAYWFQZUKM0235-79-62 16:31:00 Test Item Value Reference Range Interpretation Comments POC Activated Clotting Time (test code 153 s = POC Activated Clotting Time) [facility] HospitalDfowdnhQSZJHMTFWS3262-92-80 14:37:00 Test Item Value Reference Range Interpretation Comments POC Activated Clotting Time (test code 454 s = POC Activated Clotting Time) [facility] HospitalEznjohlUDFBBQTNQI8688-40-94 14:37:00 Test Item Value Reference Range Interpretation Comments POC Activated Clotting Time (test code 454 s = POC Activated Clotting Time) [place] 805651-04-09 14:37:00 Test Item Value Reference Range Interpretation Comments POC Activated Clotting Time (test code 454 s = POC Activated Clotting Time) [place] 805651-04-09 14:37:00 Test Item Value Reference Range Interpretation Comments POC Activated Clotting Time (test code 454 s = POC Activated Clotting Time) [facility] HospitalQulsjbcJNGSJIWVXV5449-28-78 14:37:00 Test Item Value Reference Range Interpretation Comments POC Activated Clotting Time (test code 454 s = POC Activated Clotting Time) [facility] HospitalAccodghVBWSQLUUXH2861-94-96 14:37:00 Test Item Value Reference Range Interpretation Comments POC Activated Clotting Time (test code 454 s = POC Activated Clotting Time) [facility] HospitalWaxlpxbDWRTWOSVXB1211-24-01 14:37:00 Test Item Value Reference Range Interpretation Comments POC Activated Clotting Time (test code 454 s = POC Activated Clotting Time) [facility] HospitalWyhskweOCTQLYJPHS5050-80-45 14:13:00 Test Item Value Reference Range Interpretation Comments POC Activated Clotting Time (test code 354 s = POC Activated Clotting Time) [facility] HospitalDdvqutkOXNAXHJNXX0110-91-02 14:13:00 Test Item Value Reference Range Interpretation Comments POC Activated Clotting Time (test code 354 s = POC Activated Clotting Time) [facility] HospitalYpqjktcWFRFYVEUDO1518-44-31 14:13:00 Test Item Value Reference Range Interpretation Comments POC Activated Clotting Time (test code 354 s = POC Activated Clotting Time) [facility] HospitalScnhsroQRYFKASCJI5103-99-82 14:13:00 Test Item Value Reference Range Interpretation Comments POC Activated Clotting Time (test code 354 s = POC Activated Clotting Time) [facility] HospitalPyfiuekFTGJEHMUWQ3042-02-56 14:13:00 Test Item Value Reference Range Interpretation Comments POC Activated Clotting Time (test code 354 s = POC Activated Clotting Time) [facility] HospitalNbwrnzbZZZJHKGUZX9068-02-83 14:13:00 Test Item Value Reference Range Interpretation Comments POC Activated Clotting Time (test code 354 s = POC Activated Clotting Time) [facility] HospitalXmeodueQKSJPNBFOV9415-03-93 14:13:00 Test Item Value Reference Range Interpretation Comments POC Activated Clotting Time (test code 354 s = POC Activated Clotting Time) [facility] XQLOSQW4954-91-48 10:37:00Negative (08/29/20 5:37 AM) [facility] UNJIN7403-36-94 10:37:12853Kjbixbnl HermannCHEM PANEL 2020-08-29 10:37:0028[facility]annCHEM OBEHN8618-01-35 10:37:001.01[facility]annCHEM GQCSE3043-10-15 10:37:34129Jrfbsuoq [facility]annCHEM MNOWT7719-71-42 10:37:003.8[facility]annCHEM IJAZD9615-91-20 10:37:54668Yxwioufx HermannCHEM XLKAY3752-26-27 10:37:0028[facility]annCHEM GAOIH7439-22-91 10:37:009.8 [facility]CHE[facility] NDEQN2761-44-47 10:37:0011.8[facility]annCHEM PANEL 2020-08-29 10:37:0059[facility]annCHEM QAOAB2944-96-65 10:37:002.9[facility] KmfmpapKOENANOEWH6399-17-93 10:37:006.8[facility] HwtkanvMPGSHZGUEF9703-05-89 10:37:004.47[facility] KaswfkrAHBXABWOSA7330-89-[address] TOXFFZDSVK3780-40-43 10:37:0034.0[facility] VhwnbamLWLWHVQNNM6122-08-05 10:37:00 76.1[facility] PipzcfnQSGLWUEWYN2500-77-96 10:37:00 Test Item Value Reference Range Interpretation Comments MCH (test code = MCH) 23.8 pg 27.0-31.0 [facility] OlbbnknAYGDVANBRC1920-02-43 10:37:0031.3[facility]annHEMATOLOGY 2020-08-29 10:37:0018.2[facility] AificogRKAPFFNGYY4582-81-41 10:37:61150Pxkyqicc VtupgbtOGYREUTFMY3482-93-70 10:37:007.5[facility] PmkszqqCVVLBDMECI5640-67-55 10:37:00 Test Item Value Reference Range Interpretation Comments PT (test code = PT) 12.8 s 12.0-14.7 [facility] XfejendVTUZQOCUGI2705-67-37 10:37:00 Test Item Value Reference Range Interpretation Comments INR (test code = INR) 0.97 1 0.85-1.17 [facility] BtlyahiFDYAKIBLHG7890-12-86 10:37:00 Test Item Value Reference Range Interpretation Comments PTT (test code = PTT) 25.0 s 22.9-35.8 [facility] RhsprbuXZFSOZBNPD1646-92-69 10:37:0070.5[facility]annHEMATOLOGY 2020-08-29 10:37:0018.8[facility] RzmevwuQWPFKRZXDJ1178-52-33 10:37:009.5[facility] CuynswxXXBILTOFSZ5864-50-93 10:37:000.9[facility] WggpyjcKCTHMORAKA0665-53-05 10:37:000.3[facility] IfupqukSFDGDYRRVG3063-18-27 10:37:004.8[facility] RHTNKNAHWW8777-22-73 10:37:001.3[facility] ZvlojcbGNSSADRZRS7019-46-19 10:37:000.6 [facility] WplilhpLXRVSGXTSD1788-52-72 10:37:000.1[facility]annHEMATOLOGY 2020-08-29 10:37:001+ *ABN*(08/29/20 5:37 AM)[facility] TggecwpKIWPGLRQWT6582-30-86 10:37:00Not Detected (08/29/20 5:37 AM)[facility]annBLOOD BANK RESULTS 2020-08-29 10:37:00Negative (08/29/20 5:37 AM)[facility]annCHEM CDOQY5343-20-65 10:37:86896Hekjfibt HermannCHEM HSEUL7483-77-16 10:37:0028[facility]annCHEM LLAFF9417-71-16 10:37:001.01[facility]annCHEM JMVIS5912-98-13 10:37:16303 [facility]annCHEM OWYOP0104-11-83 10:37:003.8[facility]annCHEM PANEL 2020-08-29 10:37:37868Qswrzywq HermannCHEM RHHXZ4006-27-42 10:37:0028[facility]annCHEM FADAO3558-88-85 10:37:009.8[facility]annCHEM DBHJP3402-90-07 10:37:0011.8[facility]annCHEM SYMSZ3140-11-11 10:37:0059[facility]annCHEM GSTMW4578-36-44 10:37:002.9[facility] DuupqzdFRAIYYIRCH4348-26-99 10:37:006.8 [facility] HyfvxstQJYPZWRIYQ9145-97-83 10:37:004.47[facility]annHEMATOLOGY 2020-08-29 10:37:0010.6[facility] MaazllrAWEFIYYEBL7911-83-08 10:37:0034.0[facility] NaxqjayPYUYZLTWVM0760-41-83 10:37:0076.1[facility] FntmnsrDKWAYRRIRA0307-77-35 10:37:00 Test Item Value Reference Range Interpretation Comments MCH (test code = MCH) 23.8 pg 27.0-31.0 [facility] LgaitvsPXIVJGJWFG6360-04-52 10:37:0031.3[facility]annHEMATOLOGY 2020-08-29 10:37:0018.2[facility] ZdintgiVDVMPFYKKS4552-54-19 10:37:48315Qswqgbri UhqkqueKXKGIVQRYS9429-02-07 10:37:007.5[facility] WsodvuuGSESCTIGBL5862-01-50 10:37:00 Test Item Value Reference Range Interpretation Comments PT (test code = PT) 12.8 s 12.0-14.7 [facility] FzveqpcMRIATCSOTM1139-48-07 10:37:00 Test Item Value Reference Range Interpretation Comments INR (test code = INR) 0.97 1 0.85-1.17 [facility] TxhtqdgIHGHYDBFSY3161-65-60 10:37:00 Test Item Value Reference Range Interpretation Comments PTT (test code = PTT) 25.0 s 22.9-35.8 [facility] JnaoeqfRAPLBJMGEK7764-18-10 10:37:0070.5[facility]annHEMATOLOGY 2020-08-29 10:37:0018.8[facility] GpzbiiiWCWRCBASKI3301-02-19 10:37:009.5[facility] GsedjkwRIQTDJEVTV8040-60-91 10:37:000.9[facility] GkeeimwYVTQZVKWTL5654-60-74 10:37:000.3[facility] NtbwhovQKPWQCVPQH6565-01-18 10:37:004.8[facility] BXSTUGBGMD4508-46-82 10:37:001.3[facility] XsukbqkREQNAGAOBQ6528-46-89 10:37:000.6 [facility] ToblwktJPGNCXLXEV3623-66-78 10:37:000.1[facility]annHEMATOLOGY 2020-08-29 10:37:001+ *ABN*(08/29/20 5:37 AM)[facility] EdvmfijCVQBTVGNOM8140-57-47 10:37:00Not Detected (08/29/20 5:37 AM)[facility]annBLOOD BANK RESULTS 2020-08-29 10:37:00Negative (08/29/20 5:37 AM)[facility]annCHEM SUEVM5320-05-91 10:37:29350Mxnxfyps HermannCHEM TSGLG3772-37-44 10:37:0028[facility]annCHEM YDRKC4836-27-58 10:37:001.01[facility]annCHEM MEZVE2805-17-15 10:37:64047 [facility]annCHE[facility] ZQEIW9837-22-06 10:37:003.8[facility]annCHEM PANEL 2020-08-29 10:37:51488Fvamtimm HermannCHEM HGMYX1042-31-65 10:37:0028[facility]annCHEM CMDNO6625-52-17 10:37:009.8[facility] HermannCHEM QBHWS3681-25-47 10:37:0011.8[facility]annCHEM UBEWQ7826-11-23 10:37:0059[facility]annCHEM EZNKO3224-05-17 10:37:002.9[facility] IpnnqklQCEVVNNOFK1209-58-50 10:37:006.8 [facility] MibpgesEKZKGEDCCW0240-34-21 10:37:004.47[facility]annHEMATOLOGY 2020-08-29 10:37:0010.6[facility] KdhzvvqXKNSZQLXQY7497-61-56 10:37:0034.0[facility] QyhobsbOLKKJLRRLF8304-29-41 10:37:0076.1[facility] GdfdfbrRARPGYSDSS3071-14-40 10:37:00 Test Item Value Reference Range Interpretation Comments MCH (test code = MCH) 23.8 pg 27.0-31.0 [facility] JxtisktPJQQUJLYVC6916-47-11 10:37:0031.3[facility]annHEMATOLOGY 2020-08-29 10:37:0018.2[facility] GhyaizeCYKARVNIOW9846-85-17 10:37:37341Etdhhyxr ObogbehVMIHYEJVBS7352-58-99 10:37:007.5[facility] OuuvmmiKJGBZWGJMD2122-79-20 10:37:00 Test Item Value Reference Range Interpretation Comments PT (test code = PT) 12.8 s 12.0-14.7 [facility] KpdbzsvXTWLUNWQRY4602-97-30 10:37:00 Test Item Value Reference Range Interpretation Comments INR (test code = INR) 0.97 1 0.85-1.17 [facility] QmeavbqNGKSRUDIFW1334-52-84 10:37:00 Test Item Value Reference Range Interpretation Comments PTT (test code = PTT) 25.0 s 22.9-35.8 [facility] ZihumgpKQGHFMAXRM2852-42-72 10:37:0070.5[facility]annHEMATOLOGY 2020-08-29 10:37:0018.8[facility] FbkdkraLJUNSYGHWO0636-31-45 10:37:009.5[facility] IciilkfBGUPHMJWRR1631-13-57 10:37:000.9[facility] KcfelxxSNNIGLFNMD3417-83-54 10:37:000.3[facility] NoyvnqhFEATBXBDQA0796-21-59 10:37:[address] BPOAKINYRQ8272-22-49 10:37:001.3[facility] GmkpadmBFOWDGOAQA6468-82-97 10:37:000.6 [facility] RxilczwJTPDIEYIXN0402-15-11 10:37:000.1[facility]annHEMATOLOGY 2020-08-29 10:37:001+ *ABN*(08/29/20 5:37 AM)[facility] AtlrvvmUHIEJCVHQK4359-28-89 10:37:00Not Detected (08/29/20 5:37 AM)[facility]annBLOOD BANK RESULTS 2020-08-29 10:37:00Negative (08/29/20 5:37 AM)[facility]annCHEM GYRPV0706-69-14 10:37:86390Zvhuejvt HermannCHEM JPRBT7945-42-02 10:37:0028[facility]annCHEM SQLDI0737-39-46 10:37:001.01[facility]annCHEM TCDDB0993-98-76 10:37:71970 [facility]annCHE[facility] ZKXOK9907-27-46 10:37:003.8[facility]annCHEM PANEL 2020-08-29 10:37:83694Mqswftqo HermannCHEM QDVYD0107-28-32 10:37:0028[facility]annCHEM EGGWA6009-57-10 10:37:009.8[facility] HermannCHEM MRFPM7976-94-86 10:37:0011.8[facility]annCHEM PTJQZ3163-25-00 10:37:0059[facility]annCHEM UOITM3228-22-83 10:37:002.9[facility] IpyqckbLWQLWJJPTV1902-11-79 10:37:006.8 [facility] DnbzwnwOSJFXDGHLQ7044-90-67 10:37:004.47[facility]annHEMATOLOGY 2020-08-29 10:37:0010.6[facility] JrxykujSJCJOFCLNS3387-15-29 10:37:0034.0[facility] NhnaabnAWZZXRSSRV3304-97-32 10:37:0076.1[facility] BkqerkxVDKFSYNKGM9978-28-81 10:37:00 Test Item Value Reference Range Interpretation Comments MCH (test code = MCH) 23.8 pg 27.0-31.0 [facility] QwdymxgHXHAOOMFKC2510-89-46 10:37:0031.3[facility]annHEMATOLOGY 2020-08-29 10:37:0018.2[facility] WorgvjnHVSOIGYXUG4325-07-24 10:37:78341Xjcvwhic EwzoendRILKYZUEXN7897-66-87 10:37:007.5[facility] NildzunRHXRGXTACF2306-57-95 10:37:00 Test Item Value Reference Range Interpretation Comments PT (test code = PT) 12.8 s 12.0-14.7 [facility] KmseclmQFSXKFTVJB3697-54-79 10:37:00 Test Item Value Reference Range Interpretation Comments INR (test code = INR) 0.97 1 0.85-1.17 [facility] GysqavrFVXAOCLKCR8275-33-83 10:37:00 Test Item Value Reference Range Interpretation Comments PTT (test code = PTT) 25.0 s 22.9-35.8 [facility] NevkgrvXQSNIEUNLN7529-28-83 10:37:0070.5[facility]annHEMATOLOGY 2020-08-29 10:37:0018.8[facility] CxkhtxfOWNCGKLOYE4354-68-77 10:37:009.5[facility] QenpirgRMSXTRZKBT0407-63-53 10:37:000.9[facility] TxepcgdRFJTVMNFHP8431-95-33 10:37:000.3[facility] CpuakffWUIZQUFZYQ6889-04-11 10:37:004.8[facility] ATDGKNKWXR0430-74-93 10:37:001.3[facility] WyclnrtRMWWEWGSHV1734-58-87 10:37:000.6 [facility] OpqzcukQRWDTAUXZC5808-03-00 10:37:000.1[facility]annHEMATOLOGY 2020-08-29 10:37:001+ *ABN*(08/29/20 5:37 AM)[facility] SprxcgkZTZSDQSQIZ6964-50-41 10:37:00Not Detected (08/29/20 5:37 AM)[facility]annBLOOD BANK RESULTS 2020-08-29 10:37:00Negative (08/29/20 5:37 AM)[facility]annCHEM QGYLM6127-81-51 10:37:76174Auewnoym HermannCHEM LYYZE3895-90-19 10:37:0028[facility]annCHEM ZHYOB3109-08-28 10:37:001.01[facility]annCHEM WVYIN7349-12-20 10:37:42206 [facility]annCHE[facility] LKBVN6036-80-83 10:37:003.8[facility]annCHEM PANEL 2020-08-29 10:37:90498Mqzxcnrm HermannCHEM FPSPP4225-10-98 10:37:0028[facility]annCHEM UJAVC6452-92-57 10:37:009.8[facility]annCHEM VCKMO4789-21-46 10:37:0011.8[facility] HermannCHEM LAUFV0412-08-87 10:37:0059[facility] HermannCHEM IFWEG0923-68-16 10:37:002.9[facility] LnjiuzlKMPGVAGLDF0217-14-81 10:37:006.8 [facility] NybutwhFSTTQYVHFW1361-92-98 10:37:004.47[facility]annHEMATOLOGY 2020-08-29 10:37:0010.6[facility] JsmfnxoLSKMVUJBAD5839-68-26 10:37:0034.0[facility] GwiikwiPQIJKLPOFF4991-43-02 10:37:0076.1[facility] JzjxtzmTEXQZUWXAN9744-34-17 10:37:00 Test Item Value Reference Range Interpretation Comments MCH (test code = MCH) 23.8 pg 27.0-31.0 [facility]PxsddjvLPFHHXSKHD6916-15-01 10:37:0031.3[facility]annHEMATOLOGY 2020-08-29 10:37:0018.2[facility] TwiejopOFPUZEFIYB3094-64-49 10:37:15304Fsexhyzo BnuxmezFCDBRFPDLX7282-87-30 10:37:007.5[facility] FdnlzqpHPUXSDBAUT6729-11-03 10:37:00 Test Item Value Reference Range Interpretation Comments PT (test code = PT) 12.8 s 12.0-14.7 [facility] EfszudkKZVJTHKBXL3245-43-72 10:37:00 Test Item Value Reference Range Interpretation Comments INR (test code = INR) 0.97 1 0.85-1.17 [facility]UMQXOFBG9723-75-99 10:37:00 Test Item Value Reference Range Interpretation Comments PTT (test code = PTT) 25.0 s 22.9-35.8 [facility] XdvrsbiMOHGRBIAKC8228-48-52 10:37:0070.5[facility]annHE[facility] 2020-08-29 10:37:0018.8[facility] NcwqyjnQJXTPPQBID6671-56-25 10:37:009.5[facility] CowlinoBGYOGZAFIU9097-79-71 10:37:000.9[facility] BzgfswfQMKMKLKZSK4972-47-67 10:37:000.3[facility] AfbxhjtNUJBQGBIGQ5315-39-[address] FUKNFNTBDL5300-35-08 10:37:001.3[facility] MjflkkaDNGAHOHPGG6451-92-23 10:37:000.6 [facility] TejxdtnBIORUJKYUW7474-86-09 10:37:000.1[facility]annHE[facility] 2020-08-29 10:37:001+ *ABN*(08/29/20 5:37 AM)[facility] GqbequtPGZLOTPEGN1713-92-19 10:37:00Not Detected (08/29/20 5:37 AM)[facility] 2020-08-29 10:37:00Negative (08/29/20 5:37 AM)[facility]annCHEM XRBRV0283-22-13 10:37:81533Kssdasua HermannCHEM LIATD5864-44-58 10:37:0028[facility]annCHEM SFGZB2522-56-34 10:37:001.01[facility]annCHEM FURRT5112-85-70 10:37:62800 [facility]annCHE[facility] HLIKZ2889-61-81 10:37:003.8[facility]annCHEM PANEL 2020-08-29 10:37:72311Jxehrbmb HermannCHEM JXGZI4306-38-69 10:37:0028[facility]annCHEM KIBWQ2847-58-71 10:37:009.8[facility]annCHEM HLAHJ5719-66-34 10:37:0011.8[facility]annCHEM HRNFO3360-28-90 10:37:0059[facility]annCHEM NRCLD9186-47-41 10:37:002.9[facility] DnjoslvORKEORRHVS1148-85-13 10:37:006.8 [facility] NiztgwbNSTMGSTFAF3880-30-64 10:37:004.47[facility]annHEMATOLOGY 2020-08-29 10:37:0010.6[facility] OrdbxtkNAPODEPEBD7401-48-27 10:37:0034.0[facility] GxagxsnCYUQWNRPUQ0387-82-38 10:37:0076.1[facility] AzevcnyCNPLZVZHRD1508-04-27 10:37:00 Test Item Value Reference Range Interpretation Comments MCH (test code = MCH) 23.8 pg 27.0-31.0 [facility] WqotmpgAUQJPKWCTX8918-45-80 10:37:0031.3[facility]annHEMATOLOGY 2020-08-29 10:37:0018.2[facility] PpymjkhYDNUQCUOLU5695-20-78 10:37:85747Hcvvtwwt RdgwcfnRSKGXLXHPH5588-30-63 10:37:007.5[facility] QkdzifzOWVQJGBUDQ2344-73-00 10:37:00 Test Item Value Reference Range Interpretation Comments PT (test code = PT) 12.8 s 12.0-14.7 [facility] KzfgunvANETHGYOCX2279-79-08 10:37:00 Test Item Value Reference Range Interpretation Comments INR (test code = INR) 0.97 1 0.85-1.17 [facility] VmdjftyTYHTCIZMET4683-71-80 10:37:00 Test Item Value Reference Range Interpretation Comments PTT (test code = PTT) 25.0 s 22.9-35.8 [facility] EpwcnciWIWPHKAFOK5168-11-58 10:37:0070.5[facility]annHEMATOLOGY 2020-08-29 10:37:0018.8[facility] KhsposoEFMYKMLDKN3331-87-82 10:37:009.5[facility] DqbxztmBRVPOPNYHG0898-82-15 10:37:000.9[facility] OptftifDKYALZQPSH2303-37-69 10:37:000.3[facility] FpcerpjZURTUUFYXH2823-82-38 10:37:004.8[facility] OPHSKMBJYF4079-62-66 10:37:001.3[facility] ZoxycgdOQFPMVHDUS0624-36-47 10:37:000.6 [facility] KdewmzbRZDDNPGKQS6088-36-84 10:37:000.1[facility]MATOLOGY 2020-08-29 10:37:001+ *ABN*(08/29/20 5:37 AM)[facility] ZywcicoRKQLGMOHYQ0887-82-97 10:37:00Not Detected (08/29/20 5:37 AM)[facility] RESULTS 2020-08-29 10:37:00Negative (08/29/20 5:37 AM)[facility]annCHEM [id number] 10:37:27476Vojqwmkd HermannCHEM [id number] 10:37:0028[facility]annCHEM [id number] 10:37:001.01[facility]annCHEM [id number] 10:37:45858 [facility]annCHEM [id number] 10:37:003.8[facility]annCHEM PANEL 2020-08-29 10:37:73546Zaegqxeh HermannCHEM [id number] 10:37:0028[facility]annCHEM MUNFT6626-22-24 10:37:009.8[facility]annCHEM [id number] 10:37:0011.8[facility]annCHEM [id number] 10:37:0059[facility]annCHEM LAQYW2510-34-42 10:37:002.9[facility] XeazblcBWVXBDBZCQ7953-03-46 10:37:006.8 [facility] DelpvpxMVFETGMAMH6054-81-21 10:37:004.47[facility]annHEMATOLOGY 2020-08-29 10:37:0010.6[facility] ExcprlrWFAXKKFBIB7633-85-70 10:37:0034.0[facility] HtgtwsxWXPVTMPGBH4150-51-91 10:37:0076.1[facility] AllbwlcWERIPEAEBQ3508-83-58 10:37:00 Test Item Value Reference Range Interpretation Comments MCH (test code = MCH) 23.8 pg 27.0-31.0 [facility] YxatyyaGEEPWAXEFV9571-25-88 10:37:0031.3[facility]annHEMATOLOGY 2020-08-29 10:37:0018.2[facility] SmphcoiXQPBMKJKXP2834-04-88 10:37:29361Spbyeuuq QqmpjiiHMLSGNJUGM9448-62-79 10:37:007.5[facility] LognpbzSEFOUUWIIM2174-06-46 10:37:00 Test Item Value Reference Range Interpretation Comments PT (test code = PT) 12.8 s 12.0-14.7 [facility] OwpbyrvFUNHUINNQD9165-47-55 10:37:00 Test Item Value Reference Range Interpretation Comments INR (test code = INR) 0.97 1 0.85-1.17 [facility] OxfpjskVWXLHSIBGG9125-98-20 10:37:00 Test Item Value Reference Range Interpretation Comments PTT (test code = PTT) 25.0 s 22.9-35.8 [facility] ZxqtebmIBDEQQPPAZ6977-19-96 10:37:0070.5[facility]annHEMATOLOGY 2020-08-29 10:37:0018.8[facility] RgfsugyUYLGFLPVJM5008-55-59 10:37:009.5[facility] CutmrrhDDWHDAXXVB5826-27-37 10:37:000.9[facility] ZqfpngqPLDNEZGYFO6674-73-14 10:37:000.3[facility] BjeorzsIKTLSPKDUI7559-68-64 10:37:[address]8[facility] AJPQNKANZB4625-73-71 10:37:001.3[facility] CsmvfnxTLBVNFVNVI2921-82-91 10:37:000.6 [facility] MraxcqlIMARJESBCV6317-47-82 10:37:000.1[facility]annHEMATOLOGY 2020-08-29 10:37:001+ *ABN*(08/29/20 5:37 AM)[facility] DzoyhsmXIBCWIWKAO8158-16-53 10:37:00Not Detected (08/29/20 5:37 AM)[facility] HermannCHLAMYDIA, GC, TV,PCR, IN [id number] 15:38:00 Test Item Value Reference Range Interpretation Comments FT (test code = CHTR) Not detected (qualifier Not Detected N value) FT (test code = Not detected (qualifier Not Detected N NGONO) value) FT (test code = TRVG) Not detected (qualifier Not Detected N value) URINALYSIS WITH [id number] 10:57:00 Test Item Value Reference Range Interpretation Comments Color (test code = UCOLR) Dk. Yellow Clarity (test code = UCLAR) Hazy Glucose (test code = UGLUC) NEGATIVE NEGATIVE N Bilirubin (test code = UBILI) NEGATIVE NEGATIVE N Ketones (test code = UKET) NEGATIVE NEGATIVE N Specific Jerome (test code = 1.025 1.005-1.030 A USPGR) [...]
[2021-10-26 00:46] LABS: Urine Blood Negative (Negative); Urine Glucose Negative (Negative); Urine Protein 1+ (Negative); Urine Specific Gravity 1.025 (1.005-1.030)
[2021-10-26 01:03] LABS: Barbiturates NEGATIVE (NEGATIVE); Benzodiazepines POSITIVE (NEGATIVE); Cocaine NEGATIVE (NEGATIVE); METHAMPHETAM NEGATIVE (NEGATIVE); Methadone NEGATIVE (NEGATIVE); Opiates POSITIVE (NEGATIVE); Phencyclidine NEGATIVE (NEGATIVE); THC Cannibis NEGATIVE (NEGATIVE)
[2021-10-26] MEDS ORDERED: MORPHINE 4 MG/ML SYR ONE (01:49)
[2021-10-26 02:13] LABS: Hematocrit 28.3 % (36.0-45.0); Lymphocytes % 22.3 % (15.3-44.8); MCV 72.1 fL (80-100); MPV 7.4 fL (7.6-11.3); RBC Red Blood Cell Count 3.93 M/uL (3.86-4.86)
[2021-10-26 02:25] LABS: Potassium 3.3 mmol/L (3.5-5.1)
--- NOTE | 2021-10-26 02:41 | ER ---
Nurse's Notes [facility] Name: Fawn Fleming Age: 66 yrs Sex: Female : 1955 Arrival Date: 10/25/2021 Time: 23:38 Bed 15 Private MD: Diagnosis: History of falling;Fall on same level, unspecified;headache;knee pain;back pain;Muscle weakness (generalized) Presentation: 10/25 23:45 Chief complaint: EMS states: Toned out for fall, cab supervisor states pt was waling in ll3 circles in grass when she fell, pt states "I couldn't remember where my apartment was", c/o H/A, and pain in knee caps 03/01. Coronavirus screen: Vaccine status: Patient reports receiving the 2nd dose of the covid vaccine. At this time, the client does not indicate any symptoms associated with coronavirus-19. Ebola Screen: No symptoms or risks identified at this time. Initial Sepsis Screen: Does the patient meet any 2 criteria? No. Patient's initial sepsis screen is negative. Does the patient have a suspected source of infection? No. Patient's initial sepsis screen is negative. Risk Assessment: Do you want to hurt yourself or someone else? Patient reports no desire to harm self or others. Onset of symptoms was October 26, 2021. 23:45 Method Of Arrival: EMS: [facility] 23:45 Acuity: BLAYNE 3 ll3 23:45 Mechanism of Injury: Fall from standing position. ll3 Historical: - Allergies: 10/26 00:10 Bactrim DS; ll3 00:10 butorphanol tartrate; ll3 00:10 Fentanyl; ll3 00:10 Reglan; ll3 00:10 Stadol; ll3 00:10 sulfamethoxazole (bulk); ll3 00:10 TRIMETHOPRIM; ll3 - PMHx: 00:10 Anxiety; Atrial Fib; Bipolar disorder; Chronic pain; COPD; esophageal varices; ll3 Hepatitis; HIV; Hypertension; Migraines; Panic Attacks; - PSHx: 00:10 Appendectomy; Bilateral shoulder repair; Cholecystectomy; hernia repair; R wrist SX; ll3 - Immunization history:: Client reports receiving the 2nd dose of the Covid vaccine. - Social history:: Smoking status: Patient/guardian denies using tobacco. Screenin:13 Abuse screen: Denies threats or abuse. Nutritional screening: No deficits noted. ll3 Tuberculosis screening: No symptoms or risk factors identified. Fall Risk Fall in past 12 months (25 points). No secondary diagnosis (0 pts). IV access (20 points). Ambulatory Aid- None/Bed Rest/Nurse Assist (0 pts). Gait- Impaired (20 pts.). Mental Status- Oriented to own ability (0 pts). Total Hauser Fall Scale indicates High Risk Score (45 or more points). Fall prevention measures have been instituted. Side Rails Up X 2 Placed Close to Nursing Station Frequent Obs/Assessments Occuring As available patient and family educated on Fall Prevention Program and Strategies. Assessment: 10/25 23:45 General: Appears uncomfortable, Behavior is calm, cooperative, flat. Pain: Complains of ll3 pain in buttocks, Knee cap, H/A Pain currently is 10 out of 10 on a pain scale. Neuro: Level of Consciousness is awake, obeys commands, lethargic, Oriented to person, place, time, situation, Reports headache. Cardiovascular: Patient's skin is warm and dry. Respiratory: Respiratory effort is even, unlabored, Respiratory pattern is regular, symmetrical. Derm: Skin is pink, warm \\T\\ dry. Bruising that is dark purple, on left antecubital area. Musculoskeletal: Circulation, motion, and sensation intact. Reports pain in buttocks. 10/26 02:52 Reassessment: pt requesting more pain medication informed her that she had morphine 4 bb mg less than an hour ago Dr Shah notified no new orders received. 04:00 Reassessment: No changes from previously documented assessment. Patient and/or family ll3 updated on plan of care and expected duration. Pain level reassessed. Patient is alert, oriented x 3, equal unlabored respirations, skin warm/dry/pink. Vital Signs: 10/25 23:45 BP 160 / 80; Pulse 59; Resp 18; Temp 97.7(O); Pulse Ox 96% on R/A; Weight 95.25 kg (R); ll3 Height 5 ft. 4 in. (162.56 cm) (R); Pain 10/10; 10/26 01:30 BP 156 / 85; Pulse 78; Resp 18; Pulse Ox 96% ; ll3 05:29 BP 156 / 65; Pulse 52; Resp 18; Pulse Ox 99% on 3 lpm NC; ll3 10/25 23:45 Body Mass Index 36.04 (95.25 kg, 162.56 cm) ll3 ED Course: 10/25 23:38 Patient arrived in ED. bb 23:39 Jose Shah DO is Attending Physician. elbert 23:45 Patient placed in an exam room, on a stretcher, on pulse oximetry. ll3 23:54 Shyann Moore RN is Primary Nurse. ll3 10/26 00:05 COVID-19 SARS RT PCR (Document "Date of Onset" if Symptomatic) Sent. ll3 00:10 Triage completed. ll3 00:32 CT Head Brain wo Cont In Process Unspecified. EDMS 02:05 Inserted saline lock: 24 gauge in left upper arm, using aseptic technique. Blood as6 collected. 02:13 Patient has correct armband on for positive identification. Placed in gown. Bed in low ll3 position. Call light in reach. Side rails up X2. 02:38 Brandon Shin is Hospitalizing Provider. ms3 04:00 No provider procedures requiring assistance completed. Patient admitted, IV remains in ll3 place. 07:13 Primary Nurse role handed off by Shyann Moore RN tw2 07:13 Karen Tovar RN is Primary Nurse. tw2 Administered Medications: 02:00 Drug: morphine 4 mg Route: IVP; Infused Over: 4 mins; Site: left upper arm; ll3 05:31 Follow up: Response: No adverse reaction ll3 Medication: 02:14 VIS not applicable for this client. ll3 Outcome: 02:41 Decision to Hospitalize by Provider. ms3 05:30 Admitted to ER Hold. Please see [facility] for further documentation. ll3 05:30 Condition: stable 05:30 Discharge instructions given to patient, Instructed on the need for admit, Demonstrated understanding of instructions. 12:48 Patient left the ED. iw Signatures: Dispatcher [employer] EDMS Lv Boudreaux PA PA jmm Ballard, Brenda, RN RN bb Williams, Irene RN RN iw Karen Tovar RN RN tw2 Jose Shah DO DO ms3 Dayo Ko RN RN as6 Loubet, Lynsea, RN RN ll3 Corrections: (The following items were deleted from the chart) 02:12 02:08 General: Appears uncomfortable, Behavior is calm, cooperative, flat, ll3 ll3 02:12 02:08 Pain: Complains of pain in buttocks, Knee cap, H/A Pain currently is 10 out of 10 ll3 on a pain scale. ll3 02:12 02:08 Neuro: Level of Consciousness is awake, obeys commands, lethargic, Oriented to ll3 person, place, time, situation, Reports headache ll3 02:12 02:08 Cardiovascular: Patient's skin is warm and dry. ll3 ll3 02:12 02:08 Respiratory: Respiratory effort is even, unlabored, Respiratory pattern is ll3 regular, symmetrical, ll3 02:12 02:08 Derm: Skin is pink, warm \\T\\ dry. Bruising that is dark purple, on left antecubital ll3 area ll3 02:12 02:08 Musculoskeletal: Circulation, motion, and sensation intact. Reports pain in ll3 buttocks ll3
--- NOTE | 2021-10-26 02:41 | EDPHYS ---
Physician Documentation [facility] Name: Fawn Fleming Age: 66 yrs Sex: Female : 1955 Arrival Date: 10/25/2021 Time: 23:38 Bed 15 Private MD: ED Physician Jose Shah HPI: 10/26 02:37 This 66 yrs old Female presents to ER via EMS with complaints of Fall Injury. ms3 02:37 Details of fall: The patient fell from an upright position, while standing. Onset: The ms3 symptoms/episode began/occurred just prior to arrival. Associated injuries: The patient sustained right knee. Severity of symptoms: At their worst the symptoms were moderate, in the emergency department the symptoms are unchanged. Patient seen earlier in the ED for fall. Patient with hx of falls. 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 Historical: - Allergies: 00:10 Bactrim DS; ll3 00:10 butorphanol tartrate; ll3 00:10 Fentanyl; ll3 00:10 Reglan; ll3 00:10 Stadol; ll3 00:10 sulfamethoxazole (bulk); ll3 00:10 TRIMETHOPRIM; ll3 - PMHx: 00:10 Anxiety; Atrial Fib; Bipolar disorder; Chronic pain; COPD; esophageal varices; ll3 Hepatitis; HIV; Hypertension; Migraines; Panic Attacks; - PSHx: 00:10 Appendectomy; Bilateral shoulder repair; Cholecystectomy; hernia repair; R wrist SX; ll3 - Immunization history:: Client reports receiving the 2nd dose of the Covid vaccine. - Social history:: Smoking status: Patient/guardian denies using tobacco. ROS: 02:37 Constitutional: Negative for fever, and chills. Neck: Negative for injury, pain, and ms3 swelling, Cardiovascular: Negative for chest pain, and palpitations. Respiratory: Negative for shortness of breath, cough, wheezing, and pleuritic chest pain, Abdomen/GI: Negative for abdominal pain, nausea, vomiting, diarrhea, and constipation. 02:37 Skin: Negative for injury, rash, and discoloration, Neuro: Negative for headache, weakness, numbness, tingling. 02:37 Back: Positive for pain at rest. 02:37 MS/extremity: Positive for pain, Right knee. Exam: 02:37 Constitutional: This is a well developed, well nourished patient who is awake, alert, ms3 and in no acute distress. Head/Face: Normocephalic, atraumatic. Eyes: Pupils equal round and reactive to light, extra-ocular motions intact. Lids and lashes normal. Conjunctiva and sclera are non-icteric and not injected. Periorbital areas with no swelling, redness, or edema. Neck: Trachea midline, no cervical lymphadenopathy. Supple, full range of motion without nuchal rigidity, or vertebral point tenderness. No Meningismus. Chest/axilla: Normal chest wall appearance and motion. Nontender with no deformity. Cardiovascular: Regular rate and rhythm with a normal S1 and S2. No gallops, murmurs, or rubs. Normal PMI, no JVD. No pulse deficits. Respiratory: Lungs have equal breath sounds bilaterally, clear to auscultation and percussion. No rales, rhonchi or wheezes noted. No increased work of breathing, no retractions or nasal flaring. Abdomen/GI: Soft, non-tender, with normal bowel sounds. No distension or tympany. No guarding or rebound. No evidence of tenderness throughout. 02:37 Back: pain, that is moderate, ROM is painful, with all movement, vertebral tenderness, is not appreciated, muscle spasm, is appreciated in the left low back. Vital Signs: 10/25 23:45 BP 160 / 80; Pulse 59; Resp 18; Temp 97.7(O); Pulse Ox 96% on R/A; Weight 95.25 kg (R); ll3 Height 5 ft. 4 in. (162.56 cm) (R); Pain 10/10; 10/26 01:30 BP 156 / 85; Pulse 78; Resp 18; Pulse Ox 96% ; ll3 05:29 BP 156 / 65; Pulse 52; Resp 18; Pulse Ox 99% on 3 lpm NC; ll3 10/25 23:45 Body Mass Index 36.04 (95.25 kg, 162.56 cm) ll3 MDM: 10/25 23:39 Patient medically screened. [facility] 10/26 02:37 Differential diagnosis: contusion, fracture, sprain, strain. Data reviewed: vital ms3 signs, nurses notes, lab test result(s), radiologic studies, and as a result, I will admit patient. Data interpreted: Pulse oximetry: on room air is 96 %. Interpretation: normal. 02:47 ED course: Discussed case with ALEJO Ch, and she accepts patient on behalf of ms3 Dr Shin. All questions answered. Discussed plan with patient and she understands/ agrees with plan.. 10/25 23:44 Order name: UDS; Complete Time: 01:05 bb 10/25 23:44 Order name: ETOH Level; Complete Time: 02:36 bb 10/25 23:55 Order name: COVID-19 SARS RT PCR (Document "Date of Onset" if Symptomatic); Complete ms3 Time: :10/26 00:46 Order name: Urine Dipstick-Ancillary; Complete Time: 01:05 EDMS 10/26 01:15 Order name: CBC with Diff bb 10/25 23:44 Order name: Urine Dipstick-Ancillary (obtain specimen); Complete Time: 01:02 bb 10/25 23:44 Order name: Saline Lock; Complete Time: 02:07 bb 10/25 23:54 Order name: CT Head Brain wo Cont ms3 10/26 01:15 Order name: BMP; Complete Time: 02:36 bb 10/26 02:20 Order name: CBC Smear Scan EDMS Administered Medications: 02:00 Drug: morphine 4 mg Route: IVP; Infused Over: 4 mins; Site: left upper arm; ll3 05:31 Follow up: Response: No adverse reaction ll3 Disposition Summary: 10/26/21 02:41 Hospitalization Ordered Hospitalization Status: Observation ms3 Provider: Brandon Shin ms3 Condition: Stable ms3 Problem: new ms3 Symptoms: are unchanged ms3 Bed/Room Type: Standard ms3 Location: Telemetry/MedSurg (observation)(10/26/21 12:06) dw Room Assignment: 207(10/26/21 12:06) dw Diagnosis - History of falling ms3 - Fall on same level, unspecified ms3 - headache ms3 - knee pain ms3 - back pain ms3 - Muscle weakness (generalized) ms3 Forms: - Medication Reconciliation Form ms3 - SBAR form ms3 Signatures: Dispatcher [employer] EDMS Gracia Monzon RN Mary Ruiz RN RN Lv Olivia PA PA jmm Ballard, Brenda, Jose Quintanilla RN, DO ms3 Shyann Moore RN RN ll3 Daysi Mendez PA PA sb3 Corrections: (The following items were deleted from the chart) 00:08 06 23:45 COVID-19/FLU A+B+MOL.LAB.BRZ ordered. EDMS EDMS 10/26 03:02 02:41 Telemetry/MedSurg (observation) ms3 mw 03:02 02:41 ms3 mw 12:06 03:02 [facility] ER HOLD mw dw 12:06 03:02 ERHOLD- mw dw
--- NOTE | 2021-10-26 02:58 | P.HP ---
Certification for Inpatient Patient admitted to: Observation With expected LOS: <2 Midnights Patient will require the following post-hospital care: None Practitioner: I am a practitioner with admitting privileges, knowledge of patient current condition, hospital course, and medical plan of care. Services: Services provided to patient in accordance with Admission requirements found in Title 42 Section 412.3 of the Code of Federal Regulations Patient History Date of Service: 10/26/21 Reason for admission: Recurrent Falls History of Present Illness: Patient is a 66-year-old female with history of COPD, diastolic CHF, hypertension, and frequent falls who presented to the ED via EMS for a fall for the second time today (after just being discharged from ED). 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 Upon arrival, she is complaining of 10/10 bilateral knee pain, headache, and back pain. Imaging negative. She was admitted here 2 weeks ago for falls/generalized weakness, evaluated by physical therapy and recommended to only ambulate with a walker. Discussed possibility of [facility] facility for physical therapy, which she declined. Patient was also evaluated by Cardiology due to chest pain and dizziness. Cardiac catheterization negative. She did not require any stents / other interventions. Patient states that she has ordered her walker but it has not come in yet. She reports taking her medications as prescribed. She is continually requesting more pain medication. ED provider wishes to admit patient for observation. Allergies fentanyl Allergy (Severe, Verified 03/31/21 11:11) Hives butorphanol tartrate [From Stadol] Allergy (Verified 03/31/21 11:11) confusion metoclopramide HCl [From Reglan] Allergy (Verified 03/31/21 11:11) Shortness of breath sulfamethoxazole [From Bactrim] Allergy (Verified 03/31/21 11:11) Hives/Rash trimethoprim [From Bactrim] Allergy (Verified 03/31/21 11:11) Hives/Rash Bactrim DS Allergy (Intermediate, Uncoded 03/31/21 11:11) Nausea/Vomiting Home medications list reviewed: Yes Home Medications: Raltegravir Potassium [Isentress] 1 tab PO BID 02/28/12 Sertraline [Zoloft*] 2 tab PO BID 09/15/12 Metoprolol Tartrate 100 mg PO BID #60 tablet 02/03/20 Emtricitabine/Tenofov Alafenam [Descovy 200-25 mg Tablet] 1 tab PO DAILY 03/05/21 Amlodipine Besylate 1 tab PO DAILY 03/30/21 Dexlansoprazole [Dexilant] 60 mg PO DAILY 03/30/21 Lorazepam [Ativan] 1 tab PO TID 06/29/21 Lisinopril [Zestril] 1 tab PO BID 08/28/21 Hydralazine HCl 50 mg PO BEDTIME 10/12/21 Bupropion HCl [Wellbutrin Xl] 1 tab PO DAILY 10/16/21 Clopidogrel Bisulfate [Plavix*] 1 tab PO DAILY 10/16/21 Famotidine 1 tab PO Q12H 10/16/21 Ferrous Sulfate 1 tab PO DAILY 10/16/21 Furosemide 1 tab PO Q24H 10/16/21 Meclizine HCl [Antivert*] 25 mg PO TID PRN 5 Days #15 tab 10/16/21 Trazodone [Desyrel*] 1 tab PO BEDTIME 10/16/21 levoFLOXacin [Levaquin*] 750 mg PO DAILY 5 Days #5 tab 10/16/21 - Past Medical/Surgical History Diabetic: No -: HIV- viral load currently undectable -: CAD -: Bipolar disorder -: Hypertension -: COPD on home O2 -: Tobacco abuse -: former Alcohol abuse -: Anemia of chronic disease -: Hyperlipidemia -: GERD with hiatal hernia -: Atrial fibrillation on chronic anticoagulation therapy -: Chronic diastolic CHF -: Appendectomy -: Cholecystectomy -: left and right shoulder rotator cuff repair -: Right foot repair -: Right shoulder replacement -: right wrist -: hiatal hernia repair february 2021 -: right wrist Psychosocial/ Personal History: She lives at home. She is not . - Family History Father -: Heart disease, Hypertension, Lung disease, GI disease, Diabetes, Stroke, Liver disease, Kidney disease Mother -: Hypertension, Lung disease, GI disease, Blood disorders, Other (see notes) Notes: Epilepsy, chronic pain, leukemia - Social History Smoking Status: Current some day smoker Alcohol use: No CD- Drugs: No Caffeine use: Yes Review of Systems General: Weakness Musculoskeletal: Back Pain, Other (knee pain) Physical Examination - Physical Exam General: Alert, In no apparent distress HEENT: Atraumatic, PERRLA, EOMI, Sclerae nonicteric Neck: Supple, 2+ carotid pulse no bruit, No LAD, Without JVD or thyroid abnormality Respiratory: Clear to auscultation bilaterally, Normal air movement Cardiovascular: Regular rate/rhythm, Normal S1 S2 Gastrointestinal: Normal bowel sounds, No tenderness Musculoskeletal: No tenderness Integumentary: No rashes Neurological: Normal speech, Normal strength at 5/5 x4 extr, Normal tone, Normal affect - Studies Laboratory Data (last 24 hrs) 10/26/21 02:02: Sodium 143, Potassium 3.3 L, BUN 18, Creatinine 0.98, Glucose 89 10/26/21 02:02: WBC 4.6 D, Hgb 8.4 L, Hct 28.3 L, Plt Count 178 Assessment and Plan - Problems (Diagnosis) (1) Recurrent falls Current Visit: Yes Status: Acute (2) Acute on chronic diastolic heart failure Current Visit: Yes Status: Chronic (3) Back pain of lumbar region with sciatica Current Visit: Yes Status: Chronic (4) Generalized weakness Current Visit: Yes Status: Acute (5) Anemia of chronic disease Current Visit: Yes Status: Chronic (6) COPD (chronic obstructive pulmonary disease) Current Visit: Yes Status: Chronic Qualifiers: COPD type: unspecified COPD Qualified Code(s): J44.9 - Chronic obstructive pulmonary disease, unspecified (7) Hypertension Current Visit: Yes Status: Chronic Qualifiers: Hypertension type: primary hypertension Qualified Code(s): I10 - Essential (primary) hypertension (8) Hypokalemia Current Visit: Yes Status: Acute - Plan Recurrent Falls/Generalized Weakness: Cause of recurrent falls is unknown. Head CT negative. Cardiac causes ruled out during previous admission. Physical therapy recommended only ambulating with walker, which she has not yet gotten. UDS positive for opiates and benzos. Anemia of Chronic Disease: hgb currently 8.4. Has slowly been downtrending overtime. Continue to monitor. Transfuse if < 7 Hypokalemia: Patient has chronic hypokalemia. Will replace per protocol as necessary and monitor. COPD: Patient saturating 96% on RA. States she requires 3L nasal cannula at home. CHF: Stable at this time. No signs of overload. Continue home medications. Hypertension: Continue home medications. Acute on chronic back pain: Flexeril PRN. Patient has drug-seeking behavior. Lovenox for VTE ppx Full code Discharge Plan: Home Plan to discharge in: 24 Hours - Advance Directives Does patient have a Living Will: No Does patient have a Durable POA for Healthcare: No - Code Status/Comfort Care Code Status Assessed: Yes (Full) Critical Care: No Time Spent Managing Pts Care (In Minutes): 70
[2021-10-26 03:26] LABS: Blood Morphology Comment NOTED (NOT SEEN); Hypochromasia 1+; Platelet Estimate ADEQ; White Blood Cell Scan OK (OK)
[2021-10-26] MEDS ORDERED: ONDANSETRON 4 MG/2 ML VIAL IV PRN (04:06)
[2021-10-26] MEDS ORDERED: CYCLOBENZAPRINE 10 MG TAB ONE (05:31)
[2021-10-26 05:38] VITALS: BMI 36.0
[2021-10-26] MEDS: CYCLOBENZAPRINE 10 MG TAB PO PRN ×2 (05:44→20:07)
[2021-10-26] MEDS ORDERED: ENOXAPARIN 40 MG/0.4 ML SQ ONE (09:07)
[2021-10-26] MEDS: ENOXAPARIN 40 MG/0.4 ML SQ SCH (09:44)
[2021-10-26] MEDS: LIDOCAINE 4% TOP SOLUTION MM ONE ×2 (10:48)
[2021-10-26] MEDS ORDERED: LIDOCAINE 4% PATCH ONE (10:53)
[2021-10-26] MEDS: HYDRALAZINE HCL 20 MG/ML VIAL IV PRN (15:54)
[2021-10-26] MEDS ORDERED: POTASSIUM 25 MEQ EFFERV TAB PO ONE (16:00)
[2021-10-26] MEDS ORDERED: MECLIZINE HCL 12.5 MG TAB PO PRN (16:36)
[2021-10-26] MEDS: TENOFOV ALAFENAM PO SCH (16:37)
[2021-10-26] MEDS: EMTRICITABINE PO SCH (16:37)
--- NOTE | 2021-10-26 16:43 | P.PN ---
Date of Service: 10/26/21 Patient seen and examined. She is somnolent but still asking for pain medication. Blood pressure readings elevated. Diagnosis Recurrent falls Chronic pain syndrome Plan: Supportive measures. Lidocaine patch for pain. Per report patient has refused rehab. She will need assistive device with ambulation. PT to evaluate for recommendation.
[2021-10-26] MEDS ORDERED: MORPHINE 2 MG/ML SYR IV ONE (17:24)
[2021-10-26] MEDS: FAMOTIDINE 20 MG TAB PO SCH (17:32)
[2021-10-26] MEDS: FUROSEMIDE 40 MG TABLET PO SCH (17:32)
[2021-10-26] MEDS: HYDRALAZINE HCL 25 MG TABLET PO SCH (18:31)
[2021-10-26] MEDS: PANTOPRAZOLE 40MG TABLET PO SCH (20:07)
[2021-10-26] MEDS: lisinopriL 20 MG TAB PO SCH (20:08)
[2021-10-26] MEDS: SERTRALINE HCL 100 MG TAB PO SCH (20:08)
[2021-10-26] MEDS: TRAZODONE 50 MG TABLET PO SCH (20:11)
[2021-10-26] MEDS: METOPROLOL TAR 50 MG TAB PO SCH (20:11)
[2021-10-26] MEDS ORDERED: HOME MED 1 EA UNK (Metoprolol Tartrate [Metoprolol Tartrate] 100 MG Tablet) PO SCH (21:00)
[2021-10-26] MEDS: RALTEGRAVIR POTASSIUM 400 MG PO SCH (21:00)
[2021-10-26] MEDS ORDERED: HOME MED 1 EA UNK (Lisinopril [Zestril] 40 MG Tablet) PO SCH ×2 (21:00)
[2021-10-26] MEDS ORDERED: HOME MED 1 EA UNK (Hydralazine Hcl [Hydralazine Hcl] 50 MG Tablet) PO SCH (21:00)
[2021-10-26] MEDS: HYDROCODONE/APAP 5/325 MG TAB PO PRN (22:44)
[2021-10-27] MEDS: HYDROCODONE/APAP 5/325 MG TAB PO PRN ×3 (04:15→21:16)
[2021-10-27] MEDS: FAMOTIDINE 20 MG TAB PO SCH ×2 (04:15→17:10)
[2021-10-27] MEDS: HYDRALAZINE HCL 20 MG/ML VIAL IV PRN ×2 (04:16→13:15)
--- NOTE | 2021-10-27 06:24 | P.PN ---
Date of Service: 10/27/21 Subjective: headache last night, better today reports pain at tailbone, limits movement, with some slight dizziness intermittently as well no new numbness/tingling ROS: 10 point ROS as noted above, otherwise negative Physical Exam General: sleeping, arousable, NAD HEENT: Mucous membr. moist/pink Respiratory: nonlabored respirations on 2L NC Cardiovascular: Regular rate/rhythm, trace b/l edema Gastrointestinal: soft, nontender, nondistended MSK: tenderness of paraspinal muscles in lumbar region, +SI joint tender Integumentary: No rashes, No erythema Problem List recurrent falls acute on chronic diastolic CHF (HFpEF) chronic COPD anemia of chronic disease h/o afib, paroxysmal h/o CAD h/o HTN recent cardia cath (10/13) negative patient with multiple presentations to ED over last 1-2 years for falls / headache, requesting pain medication CT head negative attempted to obtain MRI, however, patient had recent watchman procedure done, and doesn't have card will check CT lumbar/pelvis, r/o occult fracture; eval pubic symphysis, questionable findings on x-ray neuro consulted for input on patient's falls, instability / dizziness continue home HIV medications continue bronchodilators as needed for COPD does not appear septic PT consulted patient would benefit from SNF given h/o falls, patient unsure, has refused in past advised to use walker at all times, did not get one at home after recent discharge anemia workup ordered [place], lidocaine, Flexeril as needed VTE: lovenox Code: full Dispo: home vs SNF, ~2 days
[2021-10-27 07:53] LABS: Absolute Lymphocytes (CBC) 0.7 K/uL (0.7-4.9); Hematocrit 26.2 % (36.0-45.0); MCV 71.8 fL (80-100); MPV 7.1 fL (7.6-11.3); RBC Red Blood Cell Count 3.65 M/uL (3.86-4.86)
[2021-10-27] MEDS: ENOXAPARIN 40 MG/0.4 ML SQ SCH (08:49)
[2021-10-27] MEDS: METOPROLOL TAR 50 MG TAB PO SCH ×2 (08:49→21:13)
[2021-10-27] MEDS: PANTOPRAZOLE 40MG TABLET PO SCH ×2 (08:50→21:15)
[2021-10-27] MEDS: CLOPIDOGREL 75 MG TABLET PO SCH (08:51)
[2021-10-27] MEDS: AMLODIPINE 10 MG TAB PO SCH (08:51)
[2021-10-27] MEDS: BUPROPION HCL XL 150 MG TAB PO SCH (08:51)
[2021-10-27] MEDS: lisinopriL 20 MG TAB PO SCH ×2 (08:51→21:16)
[2021-10-27] MEDS: SERTRALINE HCL 100 MG TAB PO SCH ×2 (08:51→21:15)
[2021-10-27] MEDS: TENOFOV ALAFENAM PO SCH (08:52)
[2021-10-27] MEDS: LIDOCAINE 4% PATCH TOP SCH (08:52)
[2021-10-27] MEDS: EMTRICITABINE PO SCH (08:52)
[2021-10-27] MEDS: RALTEGRAVIR POTASSIUM 400 MG PO SCH ×2 (08:52→21:00)
[2021-10-27] MEDS: ACETAMINOPHEN 500 MG TAB PO PRN (08:57)
[2021-10-27] MEDS ORDERED: HOME MED 1 EA UNK (Dexlansoprazole [Dexilant] 30 MG Cap.Dr.Bp) PO SCH (09:00)
[2021-10-27 09:11] LABS: C-Reactive Protein 8.3 mg/L (<3.00)
[2021-10-27 09:26] LABS: Albumin 2.9 g/dL (3.4-5.0); Bilirubin Direct 0.1 mg/dL (0-0.2); Bilirubin Total 0.3 mg/dL (0.2-1.0); Ferritin 17.4 ng/mL (8-388); Protein, Total 6.1 g/dL (6.4-8.2)
[2021-10-27 09:40] LABS: Rheumatoid Factor NEG (NEG)
--- NOTE | 2021-10-27 13:00 | RAD REPORT ---
EXAM DESCRIPTION: CT Head/Brain Without Contrast CLINICAL HISTORY: Fall, Headache COMPARISON: CT Head/Brain Without Contrast 10/11/2021 TECHNIQUE: Head/brain axial images acquired without contrast. Coronal and sagittal reformats created . Exam performed according to departmental dose-optimization program which includes automated exposur e control, adjustment of mA and/or kV according to patient size, and/or use of iterative reconstructi on technique. FINDINGS: No midline shift, mass effect, intracranial hemorrhage, or hydrocephalus. Moderate hypodense periventricular subcortical cerebral white matter abnormality. CSF spaces appear overall mildly enlarged likely representing age-appropriate cerebral volume loss. Paranasal sinuses clear. Mastoid air cells clear. No skull fracture or significant skull lesion. Calcified atherosclerotic intracranial internal carotid and vertebral arteries. All teeth absent. IMPRESSION: Moderate cerebral white matter disease most likely represents chronic small vessel ische kaylee. Electronically signed by: Chriss Coughlin MD 10/26/2021 12:48 AM CDT Due to temporary technical issues with the PACS/Fluency reporting system, reports are being signed by the in house radiologists without review as a courtesy to insure prompt reporting. The interpreting radiologist is fully responsible for the content of the report.
--- NOTE | 2021-10-27 16:47 | RAD REPORT ---
EXAM DESCRIPTION: CT - Pelvis Wo Cont - 10/27/2021 4:20 pm CLINICAL HISTORY: coccyx pain, frequent falls Pain and swelling COMPARISON: Sacrum And Coccyx dated 10/25/2021; Lumbar Spine 3 Views dated 10/25/2021; Sacrum And Coccyx dated 10/22/2021 TECHNIQUE: All CT scans are performed using dose optimization technique as appropriate and may inclu de automated exposure control or mA/KV adjustment according to patient size. FINDINGS: No fracture or dislocation is seen. Mild degenerative changes are present at the pubic sym physis. Sacrum and sacroiliac joints appear unremarkable. Coccyx is normal. IMPRESSION: No acute abnormality is visualized.
--- NOTE | 2021-10-27 16:49 | RAD REPORT ---
EXAM DESCRIPTION: CT - Spine Lumbar Wo Con - 10/27/2021 4:20 pm CLINICAL HISTORY: Radiculopathy. coccyx pain, frequent falls COMPARISON: No comparisons TECHNIQUE: Axial noncontrast CT imaging of the lumbar spine was performed with coronal and sagittal re-formatted images. All CT scans are performed using dose optimization technique as appropriate and may include automated exposure control or mA/KV adjustment according to patient size. FINDINGS: No acute lumbar spine fracture seen. No aggressive marrow pattern or malalignment. Paraspinal tissues are normal in thickness. No paraspinal abscess or hematoma seen. Lower lobe lumbar degenerative changes are present predominantly at the L5-S1 level with prominent fa cet arthrosis bilaterally. Mild posterior disc bulges are present lower lumbar spine. Bilateral renal cysts are noted. IMPRESSION: No acute lumbar spine abnormality is seen. Mild to moderate lower lumbar degenerative spondylosis.
[2021-10-27] MEDS: FUROSEMIDE 40 MG TABLET PO SCH (17:10)
[2021-10-27] MEDS ORDERED: POTASSIUM 25 MEQ EFFERV TAB PO ONE (20:07)
[2021-10-27] MEDS: TRAZODONE 50 MG TABLET PO SCH (21:14)
[2021-10-27] MEDS: HYDRALAZINE HCL 25 MG TABLET PO SCH (21:14)
[2021-10-27] MEDS: SPIRONOLACTONE 25 MG TABLET PO SCH (21:15)
[2021-10-28 04:50] LABS: Hematocrit 29.6 % (36.0-45.0); MCV 71.8 fL (80-100); MPV 7.1 fL (7.6-11.3); RBC Red Blood Cell Count 4.12 M/uL (3.86-4.86)
[2021-10-28 04:58] LABS: Potassium 3.2 mmol/L (3.5-5.1)
[2021-10-28] MEDS: HYDROCODONE/APAP 5/325 MG TAB PO PRN (06:14)
[2021-10-28] MEDS: FAMOTIDINE 20 MG TAB PO SCH ×2 (06:22→17:03)
--- NOTE | 2021-10-28 06:55 | P.PN ---
Date of Service: 10/28/21 Subjective: no acute events overnight pain at tailbone continues, feels norco not helping, but patient noted to be sleeping / drowsy through day yesterday more alert/awake this morning ROS: 10 point ROS as noted above, otherwise negative Physical Exam General: AAOx3, NAD HEENT: Mucous membr. moist/pink Respiratory: nonlabored respirations on 2L NC Cardiovascular: Regular rate/rhythm, no edema Gastrointestinal: soft, nontender, nondistended MSK: tenderness of paraspinal muscles in lumbar region Integumentary: No rashes, No erythema Problem List recurrent falls acute on chronic diastolic CHF (HFpEF) chronic COPD anemia of chronic disease; iron deficiency anemia h/o afib, paroxysmal h/o CAD h/o HTN recent cardiac cath (10/13) negative patient with multiple presentations to ED over last 1-2 years for falls / headache, requesting pain medication CT head negative attempted to obtain MRI, however, patient had recent watchman procedure done, and doesn't have card CT lumbar/pelvis, no occult fracture; pubic symphysis ok neuro consulted for input on patient's falls, instability / dizziness continue home HIV medications continue bronchodilators as needed for COPD does not appear septic PT consulted patient would benefit from SNF given h/o falls, patient refusing advised to use walker at all times, did not get one at home after recent discharge iron deficiency / anemia could be acutely worsening patients chronic falls/gait instability started IV iron 10/27 [place], lidocaine, Flexeril as needed trial of toradol VTE: lovenox Code: full Dispo: home 1-2 days
[2021-10-28] MEDS ORDERED: POTASSIUM 25 MEQ EFFERV TAB PO ONE (08:00)
--- NOTE | 2021-10-28 08:18 | RAD REPORT ---
EXAM DESCRIPTION: RAD - Chest Single View - 10/28/2021 5:37 am CLINICAL HISTORY: b/l crackles, eval pulm edema/effusion Chest pain. COMPARISON: Chest Single View dated 10/14/2021; Chest Single View dated 10/11/2021; Chest Single View dated 10/03/2021; Chest Single View dated 10/01/2021; [place] Protocol dated 10/01/2021 FINDINGS: Portable technique limits examination quality. The lungs are grossly clear. The heart is moderately enlarged in size. Bilateral shoulder prosthesis.
[2021-10-28] MEDS: EMTRICITABINE PO SCH (09:00)
[2021-10-28] MEDS: TENOFOV ALAFENAM PO SCH (09:00)
[2021-10-28] MEDS: RALTEGRAVIR POTASSIUM 400 MG PO SCH ×2 (09:00→20:27)
[2021-10-28] MEDS: SOD FERRIC GLUC COMPLX/SUCROSE 250 MG in NA CHLORIDE 0.9% 250 ML IV SCH (09:14)
[2021-10-28] MEDS: LIDOCAINE 4% PATCH TOP SCH (09:15)
[2021-10-28] MEDS: METOPROLOL TAR 50 MG TAB PO SCH ×2 (09:15→20:25)
[2021-10-28] MEDS: ENOXAPARIN 40 MG/0.4 ML SQ SCH (09:16)
[2021-10-28] MEDS: BUPROPION HCL XL 150 MG TAB PO SCH (09:17)
[2021-10-28] MEDS: AMLODIPINE 10 MG TAB PO SCH (09:18)
[2021-10-28] MEDS: lisinopriL 20 MG TAB PO SCH ×2 (09:18→20:26)
[2021-10-28] MEDS: SERTRALINE HCL 100 MG TAB PO SCH ×2 (09:19→20:25)
[2021-10-28] MEDS: PANTOPRAZOLE 40MG TABLET PO SCH ×2 (09:19→20:27)
[2021-10-28] MEDS: SPIRONOLACTONE 25 MG TABLET PO SCH ×2 (09:19→20:26)
[2021-10-28] MEDS: CLOPIDOGREL 75 MG TABLET PO SCH (09:19)
[2021-10-28] MEDS ORDERED: KETOROLAC 30 MG/ML INJ IV PRN (13:06)
[2021-10-28] MEDS ORDERED: KETOROLAC 30 MG/ML INJ IV ONE (13:11)
[2021-10-28] MEDS: HYDRALAZINE HCL 20 MG/ML VIAL IV PRN (17:02)
[2021-10-28] MEDS: FUROSEMIDE 40 MG TABLET PO SCH (17:03)
[2021-10-28] MEDS: clonazePAM 1 MG TAB PO PRN (18:40)
[2021-10-28] MEDS: TRAZODONE 50 MG TABLET PO SCH (20:25)
[2021-10-28] MEDS: CYCLOBENZAPRINE 10 MG TAB PO PRN (20:25)
[2021-10-28] MEDS: HYDRALAZINE HCL 25 MG TABLET PO SCH (20:26)
--- NOTE | 2021-10-28 22:42 | CON ---
Consultation called because of recurrent falls. History Of Present Illness: Mrs. Fleming is a 66-year-old right-handed patient with COPD, c ongestive heart failure with diastolic dysfunction, hypertension, and has had falls for several years . In fact, reviewing hospital records, she has been admitted perhaps 200 times since 2010. Multiple of those hospital visits especially to emergency room not all admissions to the hospital, however, w ere related to falls. She had a recent fall at home, she had got out of a taxi and started walking a nd then fell off the grafts. She was just discharged from the hospital at that time because of falli ng. She hit the knees and the lower back and does have some pain in those areas. Her imaging includ ed a head CT scan, lumbar and pelvis CT scan, which showed in her brain moderate small-vessel ischemi c disease with some chronic changes. CT scan of her lumbar spine showed no acute processes. There w as mild to moderate lumbar degenerative spondylosis. Pelvic CT scan showed no abnormalities. [facility] actually came to the hospital with another fall, she had s acrum and coccyx evaluated by x-ray showing no fractures or subluxation. She just had a Watchman pro cedure a few weeks ago and initially was felt she could not have an MRI of either brain or cervical s pine. However, my conversation with Dr. Lund, the sizing machine tender who placed the Watchman in the left atrial appendage, noted she can have MRI as is compatible with that. She was evaluated by the physi porfirio therapist and only took about 5 steps sideways with a walker. She was scared about falling. Past Medical History: As noted including HIV with undetectable viral load, bipolar disorder, hyperte nsion, chronic obstructive pulmonary disease, chronic tobacco and alcohol use, chronic anemia, dyslip idemia, gastroesophageal reflux disease, atrial fibrillation, on chronic anticoagulation, and diastol ic congestive heart failure. Past Surgical History: Appendectomy, cholecystectomy, left and right shoulder rotator cuff repair, r ight foot repair, right shoulder replacement, wrist surgery on the right wrist, and hiatal hernia rep air. Social History: The patient lives alone. Allergies: FENTANYL, BUTORPHANOL, METOCLOPRAMIDE, SULFAMETHOXAZOLE, TRIMETHOPRIM, AND BACTRIM. Home Medications: Isentress 1 tablet twice daily, Zoloft 2 mg twice daily, metoprolol tartrate 100 m g twice daily, Descovy 200-25 daily, amlodipine 1 tablet daily, Dexilant 60 mg daily, Ativan 1 mg 3 t imes daily as needed, lisinopril 1 tablet twice daily, hydralazine 50 mg at bedtime, Wellbutrin daily , Plavix 75 mg daily, Pepcid 20 mg every 12 hours, ferrous sulfate 325 mg daily, furosemide daily, An tivert 25 mg 3 times daily as needed, and Desyrel 1 tablet at bedtime. She completed Levaquin 750 mg daily on 10/16/2021. Family History: Heart disease, hypertension, lung disease, gastrointestinal disease, diabetes, strok e, liver cancer, and kidney disease in her father. Mother also with hypertension, lung disease, with bleeding disorders, epilepsy, and leukemia. Social History: The patient smokes cigarettes daily. Denies regular alcohol use. Denies IV drug us e. Review of Systems: As noted. Pain in the lower buttock area and knees and recent falls. No recent fevers or chills. N o nausea or vomiting. No other positives other than mentioned above on a 10 point systems review. Physical Examination: Vital Signs: Blood pressure 193/89, pulse 61, respiratory rate 16, temperature is 97.9, and oxygen s aturation 91% to 97% room air. General: Ms. Fleming is sitting on the side of her bed. She is in no acute distress. HEENT: She is normocephalic and atraumatic. Sclerae are anicteric. Oropharynx is pink and moist. Neck: Supple. Chest: Clear. Heart: Regular. Extremities: Show no significant edema or cyanosis. There is bruising in the extremities from likel y recent falls. Neurologic: She is alert and oriented to situation, place, and person. Follows commands appropriate ly. She does not have any focal cranial nerve deficits. She has diffuse weakness in upper and lower extremities, but no focal weakness. Sensory exam, mild decrease in a stocking-glove fashion to ligh t touch, temperature, and reflexes. She is hyperreflexia around 3 to 4+ in the patella, 3 at the kathleen ls, 1+ of the biceps and triceps with brachioradialis, those are bilaterally. Gait, she needs sabra l assistance to stand and ambulate with a rolling walker. Laboratory Studies: White blood cell count 4.2, hemoglobin 8.9, and platelets 195. Chemistries all unremarkable after correction. Potassium improved from 3.3 to 3.8, glucose range 89 to 116, calcium 8.6. Liver function studies are normal. Urinalysis unremarkable. Toxicology screen is positive for opiates and benzodiazepine. Rheumatoid factor negative and COVID-19 test negative. Assessment: Ms. Fleming is a 66-year-old patient with multiple medical problems outlined above, who h as hyperreflexia and multiple falls. She did not report hitesh loss of bowel or bladder function and she is able to hold her bowel and bladder, but has to go with short notice. She has not had an MRI o f her cervical spine. Given the hyperreflexia, cervical spine MRI would help to rule out cervical co rd compression. She has intact enough positions and sense to be able to ambulate without falling if that were the only reason for her gait instability. However, the cord compression is more likely. A n MRI of the brain without and with contrast may also be helpful. Plan: 1.Cervical spine MRI no contrast. 2.Aggressive physical therapy and the patient should be ambulating with a walker at all times given her multiple falls over an extended period of time. 3.She has multiple medications and comorbid conditions, which are addressed by the primary team. 4.After discharge, if she is discharged, she may follow up in Dr. Lehman's clinic in 1 month. She may go to [facility] for therapy or inpatient rehabilitation. CEASAR/KIRTI Voice ID: [id number] Report ID: [id number]
[2021-10-29] MEDS: KETOROLAC 30 MG/ML INJ IV PRN ×3 (00:50→20:43)
--- NOTE | 2021-10-29 00:53 | P.PN ---
Date of Service: 10/29/21 Patient had a fall. She was assisted to the restroom and instructed to use her call light when she was done, nursing staff reports she did not have the call light when she was trying to get back to her bed she says her feet started sliding apart and she fell to the ground onto her left shoulder. She was assisted back to bed she is not complaining of any pain to her head or neck, does complain of some mild pain to left shoulder but full range of motion no tenderness to palpation noted. Counseled on need for compliance with fall precautions. No acute injuries noted at this time.
[2021-10-29] MEDS: FAMOTIDINE 20 MG TAB PO SCH ×2 (05:02→17:35)
--- NOTE | 2021-10-29 06:27 | P.PN ---
Date of Service: 10/29/21 Subjective: legs slid last night, lowered to floor in bathroom patient ambulated without walker, didn't call for assistance as instructed patient aware of events no new pains ROS: 10 point ROS as noted above, otherwise negative Physical Exam General: AAOx3, NAD HEENT: Mucous membr. moist/pink Respiratory: nonlabored respirations on 2L NC Cardiovascular: Regular rate/rhythm, no edema Gastrointestinal: soft, nontender, nondistended MSK: tenderness of paraspinal muscles in lumbar region, generalized weakness Integumentary: No rashes, No erythema Problem List recurrent falls acute on chronic diastolic CHF (HFpEF) chronic COPD anemia of chronic disease; iron deficiency anemia h/o afib, paroxysmal h/o CAD h/o HTN recent cardiac cath (10/13) negative patient with multiple presentations to ED over last 1-2 years for falls / headache, requesting pain medication CT head negative CT lumbar/pelvis, no occult fracture; pubic symphysis ok neuro consulted for input on patient's falls, instability / dizziness MRI ordered, r/o compression continue home HIV medications continue bronchodilators as needed for COPD PT consulted patient would benefit from SNF given h/o falls, patient refusing advised to use walker at all times, did not get one at home after recent discharge iron deficiency / anemia could be acutely worsening patients chronic falls/gait instability started IV iron 10/27 [place], lidocaine, Flexeril as needed trial of toradol VTE: lovenox Code: full Dispo: home 1-2 days, refusing SNF
[2021-10-29 06:45] LABS: Hematocrit 27.6 % (36.0-45.0); MCV 70.8 fL (80-100)
[2021-10-29 06:55] LABS: C-Reactive Protein 7.24 mg/L (<3.00); Magnesium 1.9 mg/dL (1.8-2.4); Potassium 3.1 mmol/L (3.5-5.1)
[2021-10-29] MEDS: RALTEGRAVIR POTASSIUM 400 MG PO SCH ×2 (09:00→20:43)
[2021-10-29] MEDS: TENOFOV ALAFENAM PO SCH (09:00)
[2021-10-29] MEDS: EMTRICITABINE PO SCH (09:00)
[2021-10-29] MEDS: LIDOCAINE 4% PATCH TOP SCH (09:46)
[2021-10-29] MEDS: SOD FERRIC GLUC COMPLX/SUCROSE 250 MG in NA CHLORIDE 0.9% 250 ML IV SCH (09:47)
[2021-10-29] MEDS: METOPROLOL TAR 50 MG TAB PO SCH ×2 (09:47→20:43)
[2021-10-29] MEDS: BUPROPION HCL XL 150 MG TAB PO SCH (09:47)
[2021-10-29] MEDS: CLOPIDOGREL 75 MG TABLET PO SCH (09:48)
[2021-10-29] MEDS: lisinopriL 20 MG TAB PO SCH ×2 (09:48→20:42)
[2021-10-29] MEDS: PANTOPRAZOLE 40MG TABLET PO SCH ×2 (09:48→20:43)
[2021-10-29] MEDS: SPIRONOLACTONE 25 MG TABLET PO SCH ×2 (09:48→20:42)
[2021-10-29] MEDS: HYDRALAZINE HCL 25 MG TABLET PO SCH ×3 (09:48→20:42)
[2021-10-29] MEDS: SERTRALINE HCL 100 MG TAB PO SCH ×2 (09:49→20:43)
[2021-10-29] MEDS: AMLODIPINE 10 MG TAB PO SCH (09:49)
[2021-10-29] MEDS: ENOXAPARIN 40 MG/0.4 ML SQ SCH (09:49)
[2021-10-29] MEDS ORDERED: MORPHINE 2 MG/ML SYR IV ONE (10:06)
--- NOTE | 2021-10-29 14:40 | RAD REPORT ---
EXAM DESCRIPTION: MRI - Pelvis Wo Cont - 10/29/2021 2:30 pm CLINICAL HISTORY: Pelvic pain COMPARISON: 10/27/2021 CT TECHNIQUE: Axial, sagittal, and coronal magnetic images of the pelvis were obtained. Contrast was no t requested FINDINGS: No significant abnormal signal within the bones noted. Physiologic hip joint effusions Muscles are normal caliber and signal No subcutaneous hematoma Mild degenerative changes are present at the pubic symphysis. IMPRESSION: No significant abnormality displayed
[2021-10-29] MEDS: MORPHINE 2 MG/ML SYR IV ONE ×2 (15:21→16:00)
--- NOTE | 2021-10-29 15:31 | RAD REPORT ---
EXAM DESCRIPTION: MRI - Lumbar Spine Wo Con - 10/29/2021 3:00 pm CLINICAL HISTORY: Back injury status post fall. Back pain COMPARISON: CT October 27, 2021 TECHNIQUE: Sagittal T1, T2 and STIR weighted sequences were obtained. Axial T1 and T2 sequences were obtained through the lumbar disc levels. FINDINGS: L1-2, L2-3, L3-4, and L5-S1 unremarkable Ligamentum flavum and facet hypertrophy are present at L4-5. There is mild narrowing of the thecal sa c which measures 10 millimeters. Neural foramina are patent. Mild spondylosis L5-S1 T1 weighted sequences demonstrate several small areas increased signal within several vertebra probab ly hemangiomas. Epidural lipomatosis lower sacral spinal canal IMPRESSION: Mild spondylosis L3-4 No vertebral fracture noted
--- NOTE | 2021-10-29 16:21 | RAD REPORT ---
EXAM DESCRIPTION: MRI - Brain W/Wo Cont - 10/29/2021 4:05 pm CLINICAL HISTORY: Fall with head injury COMPARISON: head CT October 26, 2021 TECHNIQUE: Axial, sagittal, and coronal magnetic images of the brain were obtained. 20 cc MultiHance administered intravenously FINDINGS: Moderate signal within periventricular, deep and subcortical white matter. Mild patchy sig nal within the brainstem The ventricles are normal in caliber. Diffusion-weighted/ ADC mapping sequences do not demonstrate evidence of an acute infarction. No abnormal enhancement within the brain is seen. An extra-axial fluid collection is not noted. Fluid within the sinuses/mastoids is not seen IMPRESSION: Moderate signal within periventricular, deep and subcortical white matter probably ische izabella changes secondary to small vessel disease. A demyelinating process can also result in this appear ance No acute abnormality is displayed
--- NOTE | 2021-10-29 16:37 | RAD REPORT ---
EXAM DESCRIPTION: MRI - C Spine Wo Cont - 10/29/2021 3:51 pm CLINICAL HISTORY: Radiculopathy COMPARISON: 2014 TECHNIQUE: Magnetic resonance imaging of the cervical spine was obtained. Sagittal and axial images completed. FINDINGS: Images are degraded by patient motion artifact. Minimal spondylosis C2-3, C3-4 and C4-5 Slight anterior subluxation C5 on C6 with disc bulge. Minimal narrowing of thecal sac. Facet hypertro phy. Mild narrowing of the neural foramina. Disc is narrowed C6-7. Disc bulge and osteophytes. Mild narrowing of the thecal sac. Facet hypertroph y. Moderate narrowing of the neural foramina bilaterally C7-T1 unremarkable. Area of increased signal on T1 weighted sequences within the T2 vertebral body likely hemangioma No significant abnormal signal within spinal cord noted IMPRESSION: Spondylosis most marked C6-7 resulting in moderate bilateral foraminal stenosis
[2021-10-29] MEDS: FUROSEMIDE 40 MG TABLET PO SCH (17:35)
[2021-10-29] MEDS: clonazePAM 1 MG TAB PO PRN (20:42)
[2021-10-29] MEDS: TRAZODONE 50 MG TABLET PO SCH (20:42)
[2021-10-29] MEDS ORDERED: POTASSIUM CL SA 10 MEQ TAB PO ONE (21:00)
[2021-10-30] MEDS: FAMOTIDINE 20 MG TAB PO SCH ×2 (05:35→16:36)
[2021-10-30] MEDS: KETOROLAC 30 MG/ML INJ IV PRN ×3 (05:35→20:47)
--- NOTE | 2021-10-30 06:22 | P.PN ---
Date of Service: 10/30/21 Subjective: felt lower back muscle spasm early this morning wants to go to SNF now ROS: 10 point ROS as noted above, otherwise negative Physical Exam General: AAOx3, NAD, obese HEENT: Mucous membr. moist/pink Respiratory: nonlabored respirations on 2L NC Cardiovascular: Regular rate/rhythm, no edema Gastrointestinal: soft, nontender, nondistended MSK: tenderness of paraspinal muscles in lumbar region, generalized weakness Integumentary: No rashes, No erythema Problem List recurrent falls acute on chronic diastolic CHF (HFpEF) chronic COPD, on O2 at home anemia of chronic disease; iron deficiency anemia h/o afib, paroxysmal h/o CAD h/o HTN recent cardiac cath (10/13) negative patient with multiple presentations to ED over last 1-2 years for falls / headache, requesting pain medication CT head negative; CT lumbar/pelvis, no occult fracture; pubic symphysis ok neuro consulted for input on patient's falls, instability / dizziness MRI: likely microvascular ischemic changes; no central canal stenosis continue home HIV medications continue bronchodilators as needed for COPD PT consulted patient would benefit from SNF given h/o falls; patient initially refused, now agreeable advised to use walker at all times, did not get one at home after recent discharge iron deficiency / anemia could be acutely worsening patients chronic falls/gait instability started IV iron 10/27 [place], lidocaine, Flexeril as needed trial of toradol VTE: lovenox Code: full Dispo: SNF, patient agreeable now; initially refused
[2021-10-30 07:04] LABS: Absolute Lymphocytes (CBC) 0.9 K/uL (0.7-4.9); Hematocrit 27.5 % (36.0-45.0); Lymphocytes % 23.9 % (15.3-44.8); MCV 70.6 fL (80-100); MPV 6.6 fL (7.6-11.3); RBC Red Blood Cell Count 3.89 M/uL (3.86-4.86)
[2021-10-30 07:23] LABS: Potassium 3.4 mmol/L (3.5-5.1)
[2021-10-30] MEDS ORDERED: POTASSIUM CL SA 10 MEQ TAB PO ONE (08:15)
[2021-10-30] MEDS: EMTRICITABINE PO SCH (09:00)
[2021-10-30] MEDS: RALTEGRAVIR POTASSIUM 400 MG PO SCH ×2 (09:00→20:47)
[2021-10-30] MEDS: TENOFOV ALAFENAM PO SCH (09:00)
[2021-10-30] MEDS: ENOXAPARIN 40 MG/0.4 ML SQ SCH (09:28)
[2021-10-30] MEDS: METOPROLOL TAR 50 MG TAB PO SCH ×2 (09:28→20:46)
[2021-10-30] MEDS: LIDOCAINE 4% PATCH TOP SCH (09:28)
[2021-10-30] MEDS: PANTOPRAZOLE 40MG TABLET PO SCH ×2 (09:29→20:46)
[2021-10-30] MEDS: SERTRALINE HCL 100 MG TAB PO SCH ×2 (09:29→20:46)
[2021-10-30] MEDS: BUPROPION HCL XL 150 MG TAB PO SCH (09:29)
[2021-10-30] MEDS: lisinopriL 20 MG TAB PO SCH ×2 (09:29→20:46)
[2021-10-30] MEDS: AMLODIPINE 10 MG TAB PO SCH (09:29)
[2021-10-30] MEDS: SPIRONOLACTONE 25 MG TABLET PO SCH ×2 (09:30→20:47)
[2021-10-30] MEDS: CLOPIDOGREL 75 MG TABLET PO SCH (09:30)
[2021-10-30] MEDS: HYDRALAZINE HCL 25 MG TABLET PO SCH ×3 (09:30→22:13)
[2021-10-30] MEDS: SOD FERRIC GLUC COMPLX/SUCROSE 250 MG in NA CHLORIDE 0.9% 250 ML IV SCH (10:09)
[2021-10-30] MEDS: FUROSEMIDE 40 MG TABLET PO SCH (16:36)
--- NOTE | 2021-10-30 20:01 | PN ---
Subjective: Ms. Fleming is resting comfortably in bed. She is not in acute distress. She has no com plaints. Objective: Vital Signs: Blood pressure 133/63, pulse 63, respiratory rate 16, temperature 97.6, oxy gen saturation 97%. Neuro: Ms. Fleming is resting in bed. She has no focal cranial nerves, motor, coordination, gait, or sensory deficits. Just difficulty with fatigue and some loss of balance as she tries to stand and a mbulate. Laboratory Studies: White blood cell count 3.7, hemoglobin 8.8 and hematocrit 27.5, platelets 186. Sodium 139, potassium 3.4, creatinine 1.08, calcium 8.9. CRP is chronically elevated now 7.24. AST, ALT, and alkaline phosphatase normal. Assessment: Ms. Fleming is a 66-year-old patient with multiple falls of unclear etiology. She appare ntly has been on opiates and benzodiazepines and was positive on her screen on admission. The Hospit alist did mention she was asking for opiates and there is no clear indication. She did have an MRI o f the cervical spine, moderate bilateral C6-7 root compression, no canal stenosis. Lumbar spine show s mild spondylosis at L3-4, no other significant findings. Plan: 1.At some point, consider lumbar puncture under fluoroscopy to evaluate for the possibility of multi ple sclerosis as this was brought up on MRI of the brain, which suggested the small vessel ischemic d isease, most likely cause for those findings, but demyelinating process cannot be excluded. 2.She may have evoked potential studies as part of a workup for multiple sclerosis on an outpatient basis. 3.She is told to ambulate with a walker at all times given her ataxic gait and multiple falls. 4.She is at this point awaiting a transfer to long-term to continue physical therapy and that may proceed when the bed is available. CEASAR/KIRTI Voice ID: [id number] Report ID: [id number]
[2021-10-30] MEDS: TRAZODONE 50 MG TABLET PO SCH (20:46)
[2021-10-30] MEDS: CYCLOBENZAPRINE 10 MG TAB PO PRN (22:12)
[2021-10-31] MEDS: FAMOTIDINE 20 MG TAB PO SCH ×2 (04:10→16:31)
[2021-10-31] MEDS: KETOROLAC 30 MG/ML INJ IV PRN ×3 (04:16→21:00)
[2021-10-31 07:11] LABS: Hematocrit 29.1 % (36.0-45.0); MCV 72.2 fL (80-100); MPV 7.1 fL (7.6-11.3); RBC Red Blood Cell Count 4.03 M/uL (3.86-4.86)
[2021-10-31 07:14] LABS: Magnesium 2.3 mg/dL (1.8-2.4); Potassium 3.6 mmol/L (3.5-5.1)
[2021-10-31] MEDS: SERTRALINE HCL 100 MG TAB PO SCH ×2 (08:34→21:00)
[2021-10-31] MEDS: CLOPIDOGREL 75 MG TABLET PO SCH (08:34)
[2021-10-31] MEDS: METOPROLOL TAR 50 MG TAB PO SCH ×2 (08:34→21:00)
[2021-10-31] MEDS: BUPROPION HCL XL 150 MG TAB PO SCH (08:34)
[2021-10-31] MEDS: AMLODIPINE 10 MG TAB PO SCH (08:36)
[2021-10-31] MEDS: SPIRONOLACTONE 25 MG TABLET PO SCH ×2 (08:36→21:00)
[2021-10-31] MEDS: PANTOPRAZOLE 40MG TABLET PO SCH ×2 (08:36→21:00)
[2021-10-31] MEDS: HYDRALAZINE HCL 25 MG TABLET PO SCH ×3 (08:36→20:59)
[2021-10-31] MEDS: LIDOCAINE 4% PATCH TOP SCH (08:37)
[2021-10-31] MEDS: lisinopriL 20 MG TAB PO SCH ×2 (08:37→20:59)
[2021-10-31] MEDS: RALTEGRAVIR POTASSIUM 400 MG PO SCH ×2 (08:37→21:00)
[2021-10-31] MEDS: ENOXAPARIN 40 MG/0.4 ML SQ SCH (08:37)
[2021-10-31] MEDS: EMTRICITABINE PO SCH (08:37)
[2021-10-31] MEDS: TENOFOV ALAFENAM PO SCH (08:37)
[2021-10-31] MEDS: SOD FERRIC GLUC COMPLX/SUCROSE 250 MG in NA CHLORIDE 0.9% 250 ML IV SCH (08:51)
[2021-10-31] MEDS ORDERED: ASPIRIN EC 81 MG TAB PO SCH (09:00)
[2021-10-31 09:20] LABS: Platelet Estimate DECR; White Blood Cell Scan OK (OK)
[2021-10-31] MEDS ORDERED: POTASSIUM CL SA 10 MEQ TAB PO ONE (09:51)
[2021-10-31] MEDS: HYDROCODONE/APAP 5/325 MG TAB PO PRN ×2 (10:54→22:45)
--- NOTE | 2021-10-31 15:09 | P.PN ---
Date of Service: 10/31/21 Subjective: intermittent lumbar muscle spasm leading to pain mild headache ROS: 10 point ROS as noted above, otherwise negative Physical Exam General: AAOx3, NAD, obese HEENT: Mucous membr. moist/pink Respiratory: nonlabored respirations on 2L NC Cardiovascular: Regular rate/rhythm, no edema Gastrointestinal: soft, nontender, nondistended MSK: tenderness of paraspinal muscles in lumbar region, generalized weakness Problem List recurrent falls pain; muscle spasms acute on chronic diastolic CHF (HFpEF) chronic COPD, on O2 at home anemia of chronic disease; iron deficiency anemia h/o afib, paroxysmal h/o CAD h/o HTN recent cardiac cath (10/13) negative patient with multiple presentations to ED over last 1-2 years for falls / headache, requesting pain medication CT head negative; CT lumbar/pelvis, no occult fracture; pubic symphysis ok neuro consulted for input on patient's falls, instability / dizziness MRI: likely microvascular ischemic changes; no central canal stenosis; consider outpatient LP to r/o rare diagnosis such as diagnosis continue home HIV medications continue bronchodilators as needed for COPD PT consulted patient would benefit from SNF given h/o falls; patient initially refused, now agreeable advised to use walker at all times, did not get one at home after recent discharge iron deficiency / anemia could be acutely worsening patients chronic falls/gait instability started IV iron 10/27 [place], lidocaine, Flexeril as needed trial of toradol VTE: lovenox Code: full Dispo: SNF, patient agreeable now; initially refused
[2021-10-31] MEDS: FUROSEMIDE 40 MG TABLET PO SCH (16:31)
[2021-10-31] MEDS: TRAZODONE 50 MG TABLET PO SCH (21:01)
[2021-11-01] MEDS: clonazePAM 1 MG TAB PO PRN (00:03)
[2021-11-01] MEDS: KETOROLAC 30 MG/ML INJ IV PRN ×2 (05:09→13:43)
[2021-11-01] MEDS: HYDRALAZINE HCL 20 MG/ML VIAL IV PRN (05:09)
[2021-11-01] MEDS: FAMOTIDINE 20 MG TAB PO SCH ×2 (05:09→17:14)
--- NOTE | 2021-11-01 06:17 | P.PN ---
Date of Service: 11/01/21 Subjective: no acute events overnight continues with some pain in tailbone no nausea/vomiting, no dysuria, no fever/chills ROS: 10 point ROS as noted above, otherwise negative Physical Exam General: AAOx3, NAD, obese HEENT: Mucous membr. moist/pink Respiratory: nonlabored respirations on 2L NC Cardiovascular: Regular rate/rhythm, no edema Gastrointestinal: soft, nontender, nondistended MSK: tenderness of paraspinal muscles in lumbar region, generalized weakness Problem List recurrent falls pain; muscle spasms acute on chronic diastolic CHF (HFpEF), resolved chronic COPD, on O2 at home anemia of chronic disease; iron deficiency anemia h/o afib, paroxysmal h/o CAD h/o HTN recent cardiac cath (10/13) negative patient with multiple presentations to ED over last 1-2 years for falls / headache, requesting pain medication CT head negative; CT lumbar/pelvis, no occult fracture; pubic symphysis ok neuro consulted for input on patient's falls, instability / dizziness MRI: likely microvascular ischemic changes, possible demyelinating process; no central canal stenosis, Epidural lipomatosis/sacral spinal canal. Mild narrowing of the thecal sac which measures 10 mm. PT consulted - advised to use walker at all times, did not get one at home after recent discharge patient would benefit from SNF given h/o falls; patient initially refused, now agreeable discussed with neuro; recommend LP continue home HIV medications continue bronchodilators as needed for COPD iron deficiency / anemia could be acutely worsening patients chronic falls/gait instability completed IV iron x 4 doses [place], lidocaine, Flexeril as needed trial of toradol hold aspirin/plavix, tentative plan for LP this week; last received 10/31 VTE: lovenox Code: full Dispo: SNF, patient agreeable now; initially refused needs LP
[2021-11-01 06:35] LABS: Potassium 3.4 mmol/L (3.5-5.1)
[2021-11-01] MEDS: SERTRALINE HCL 100 MG TAB PO SCH ×2 (08:36→20:41)
[2021-11-01] MEDS: HYDRALAZINE HCL 25 MG TABLET PO SCH ×3 (08:36→20:42)
[2021-11-01] MEDS: METOPROLOL TAR 50 MG TAB PO SCH ×2 (08:37→20:42)
[2021-11-01] MEDS: BUPROPION HCL XL 150 MG TAB PO SCH (08:37)
[2021-11-01] MEDS: PANTOPRAZOLE 40MG TABLET PO SCH ×2 (08:38→20:46)
[2021-11-01] MEDS: lisinopriL 20 MG TAB PO SCH ×2 (08:38→20:42)
[2021-11-01] MEDS: SPIRONOLACTONE 25 MG TABLET PO SCH ×2 (08:38→20:41)
[2021-11-01] MEDS: HYDROCODONE/APAP 5/325 MG TAB PO PRN ×2 (08:39→15:23)
[2021-11-01] MEDS: LIDOCAINE 4% PATCH TOP SCH (08:39)
[2021-11-01] MEDS: ENOXAPARIN 40 MG/0.4 ML SQ SCH (08:40)
[2021-11-01] MEDS: RALTEGRAVIR POTASSIUM 400 MG PO SCH ×2 (09:00→20:43)
[2021-11-01] MEDS: EMTRICITABINE PO SCH (09:00)
[2021-11-01] MEDS ORDERED: POTASSIUM 25 MEQ EFFERV TAB PO ONE (09:00)
[2021-11-01] MEDS: TENOFOV ALAFENAM PO SCH (09:00)
[2021-11-01] MEDS: AMLODIPINE 10 MG TAB PO SCH (11:00)
[2021-11-01] MEDS: FUROSEMIDE 40 MG TABLET PO SCH (17:00)
[2021-11-01] MEDS: TRAZODONE 50 MG TABLET PO SCH (20:41)
[2021-11-02] MEDS ORDERED: MAGNES/ALUMIN/SIMET 30ML UCUP PO ONE (00:47)
[2021-11-02] MEDS: FAMOTIDINE 20 MG TAB PO SCH ×2 (04:48→16:28)
--- NOTE | 2021-11-02 06:18 | P.PN ---
Date of Service: 11/02/21 Subjective: intermittent right lumbar muscle spasms walks with walker, feels legs will buckle under her at times ROS: 10 point ROS as noted above, otherwise negative Physical Exam General: AAOx3, NAD, obese HEENT: Mucous membr. moist/pink Respiratory: nonlabored respirations on 2L NC Cardiovascular: Regular rate/rhythm, no edema Gastrointestinal: soft, nontender, nondistended MSK: tenderness of paraspinal muscles in lumbar region, generalized weakness; +SI joint tenderness, b/l knee hyperreflexia Problem List recurrent falls pain; muscle spasms acute on chronic diastolic CHF (HFpEF), resolved chronic COPD, on O2 at home anemia of chronic disease; iron deficiency anemia h/o afib, paroxysmal h/o CAD h/o HTN recent cardiac cath (10/13) negative patient with multiple presentations to ED over last 1-2 years for falls / headache, requesting pain medication CT head negative; CT lumbar/pelvis, no occult fracture; pubic symphysis ok neuro consulted for input on patient's falls, instability / dizziness - recommend LP r/o demyelinating process, MS- scheduled for Tuesday - off aspirin/plavix MRI: likely microvascular ischemic changes, possible demyelinating process; no central canal stenosis, Epidural lipomatosis/sacral spinal canal. Mild narrowing of the thecal sac which measures 10 mm. PT consulted - advised to use walker at all times, did not get one at home after recent discharge patient would benefit from SNF given h/o falls; patient initially refused, now agreeable continue home HIV medications continue bronchodilators as needed for COPD iron deficiency / anemia could be acutely worsening patients chronic falls/gait instability completed IV iron x 4 doses [place], lidocaine, Flexeril as needed trial of toradol hold aspirin/plavix, plan for LP this week; last received 10/31 VTE: lovenox Code: full Dispo: SNF, patient agreeable now; initially refused needs LP
[2021-11-02 06:40] LABS: Magnesium 2.4 mg/dL (1.8-2.4); Potassium 3.6 mmol/L (3.5-5.1)
[2021-11-02] MEDS: EMTRICITABINE PO SCH (09:00)
[2021-11-02] MEDS ORDERED: POTASSIUM 25 MEQ EFFERV TAB PO ONE (09:00)
[2021-11-02] MEDS: RALTEGRAVIR POTASSIUM 400 MG PO SCH ×2 (09:00→21:00)
[2021-11-02] MEDS: TENOFOV ALAFENAM PO SCH (09:00)
[2021-11-02] MEDS: ENOXAPARIN 40 MG/0.4 ML SQ SCH (09:00)
[2021-11-02] MEDS: METOPROLOL TAR 50 MG TAB PO SCH ×2 (09:29→21:04)
[2021-11-02] MEDS: BUPROPION HCL XL 150 MG TAB PO SCH (09:30)
[2021-11-02] MEDS: SERTRALINE HCL 100 MG TAB PO SCH ×2 (09:30→21:05)
[2021-11-02] MEDS: HYDRALAZINE HCL 25 MG TABLET PO SCH ×3 (09:31→21:06)
[2021-11-02] MEDS: SPIRONOLACTONE 25 MG TABLET PO SCH ×2 (09:31→21:03)
[2021-11-02] MEDS: AMLODIPINE 10 MG TAB PO SCH (09:31)
[2021-11-02] MEDS: PANTOPRAZOLE 40MG TABLET PO SCH ×2 (09:32→21:06)
[2021-11-02] MEDS: LIDOCAINE 4% PATCH TOP SCH (09:32)
[2021-11-02] MEDS: lisinopriL 20 MG TAB PO SCH ×2 (09:32→21:04)
[2021-11-02] MEDS: ACETAMINOPHEN 500 MG TAB PO PRN (12:29)
[2021-11-02] MEDS ORDERED: LOPERAMIDE HCL 2 MG CAPSULE PO PRN (14:36)
[2021-11-02] MEDS: FUROSEMIDE 40 MG TABLET PO SCH (16:28)
[2021-11-02] MEDS: TRAZODONE 50 MG TABLET PO SCH (21:05)
[2021-11-02] MEDS: clonazePAM 1 MG TAB PO PRN (21:05)
[2021-11-02] MEDS: HYDROCODONE/APAP 5/325 MG TAB PO PRN (22:17)
[2021-11-03] MEDS: HYDROCODONE/APAP 5/325 MG TAB PO PRN ×3 (04:39→20:28)
[2021-11-03] MEDS: FAMOTIDINE 20 MG TAB PO SCH ×2 (04:39→18:17)
[2021-11-03 06:47] LABS: Potassium 3.7 mmol/L (3.5-5.1)
[2021-11-03] MEDS: RALTEGRAVIR POTASSIUM 400 MG PO SCH ×2 (09:00→20:32)
[2021-11-03] MEDS: TENOFOV ALAFENAM PO SCH (09:00)
[2021-11-03] MEDS: EMTRICITABINE PO SCH (09:00)
[2021-11-03] MEDS ORDERED: POTASSIUM CL SA 10 MEQ TAB PO ONE (09:00)
[2021-11-03] MEDS: ENOXAPARIN 40 MG/0.4 ML SQ SCH (09:12)
[2021-11-03] MEDS: LIDOCAINE 4% PATCH TOP SCH (09:12)
[2021-11-03] MEDS: SERTRALINE HCL 100 MG TAB PO SCH ×2 (09:12→20:39)
[2021-11-03] MEDS: SPIRONOLACTONE 25 MG TABLET PO SCH ×2 (09:13→20:29)
[2021-11-03] MEDS: lisinopriL 20 MG TAB PO SCH ×2 (09:13→20:29)
[2021-11-03] MEDS: BUPROPION HCL XL 150 MG TAB PO SCH (09:13)
[2021-11-03] MEDS: HYDRALAZINE HCL 25 MG TABLET PO SCH ×3 (09:14→20:29)
[2021-11-03] MEDS: METOPROLOL TAR 50 MG TAB PO SCH ×2 (09:14→20:27)
[2021-11-03] MEDS: PANTOPRAZOLE 40MG TABLET PO SCH ×2 (09:15→20:29)
[2021-11-03] MEDS: AMLODIPINE 10 MG TAB PO SCH (09:15)
--- NOTE | 2021-11-03 11:09 | EKG ---
Test Date: 2021-11-02 Test Time: 02:24:24 Pot Maker: RT-O MEASUREMENT RESULTS: Intervals: Rate: 81 AL: 256 QRSD: 88 QT: 448 QTc: 520 [place]: P: 58 AL: 256 QRS: 61 T: 86 INTERPRETIVE STATEMENTS: Sinus rhythm with 1st degree AV block Nonspecific T wave abnormality Prolonged QT Abnormal ECG Compared to ECG 10/11/2021 13:16:29 First degree AV block now present T-wave abnormality now present Prolonged QT interval now present Atrial premature complex(es) no longer present ST (T wave) deviation no longer present Electronically Signed On 11-03-21 11:05:11 CDT by Per Crane
--- NOTE | 2021-11-03 14:28 | P.PN ---
Subjective Date of Service: 11/03/21 Chief Complaint: Recurrent Falls Patient has no new complaint except headache. Physical Examination - Vital Signs Temperature: 97.1 F Blood Pressure: 148/72 Pulse: 52 Respirations: 18 Pulse Ox (%): 98 Assessment And Plan - Plan Physical Exam General: AAOx3, NAD, obese HEENT: Mucous membr. moist/pink Respiratory: nonlabored respirations on 2L NC Cardiovascular: Regular rate/rhythm, no edema Gastrointestinal: soft, nontender, nondistended MSK: generalized weakness; +SI joint tenderness, b/l knee hyperreflexia Problem List recurrent falls pain; muscle spasms acute on chronic diastolic CHF (HFpEF), resolved chronic COPD, on O2 at home anemia of chronic disease; iron deficiency anemia h/o afib, paroxysmal h/o CAD h/o HTN recent cardiac cath (10/13) negative patient with multiple presentations to ED over last 1-2 years for falls / headache. CT head negative; CT lumbar/pelvis, no occult fracture; pubic symphysis ok neuro consulted for input on patient's falls, instability / dizziness. Dr. Lehman recommend LP to r/o demyelinating process, MS. LP scheduled for Tuesday. Patient has been off aspirin and Plavix for the lumbar puncture. MRI: likely microvascular ischemic changes, possible demyelinating process; no central canal stenosis, Epidural lipomatosis/sacral spinal canal. Mild narrowing of the thecal sac which measures 10 mm. PT consulted -patient advised to use walker at all times, did not get one at home after recent discharge She would benefit from SNF given h/o falls; she is agreeable. continue home HIV medications continue bronchodilators as needed for COPD iron deficiency / anemia could be acutely worsening patients chronic falls/gait instability completed IV iron x 4 doses [place], lidocaine, Flexeril as needed trial of toradol hold aspirin/plavix, for LP tomorrow. Last received aspirin /Plavix on 10/31. week;
[2021-11-03] MEDS: FUROSEMIDE 40 MG TABLET PO SCH (18:17)
[2021-11-03] MEDS: TRAZODONE 50 MG TABLET PO SCH (20:27)
[2021-11-04] MEDS: FAMOTIDINE 20 MG TAB PO SCH ×2 (05:40→17:14)
[2021-11-04] MEDS ORDERED: POTASSIUM CL SA 10 MEQ TAB PO ONE (09:00)
[2021-11-04] MEDS: LIDOCAINE 4% PATCH TOP SCH ×2 (09:00→09:10)
[2021-11-04] MEDS: RALTEGRAVIR POTASSIUM 400 MG PO SCH ×2 (09:00→21:00)
[2021-11-04] MEDS: ENOXAPARIN 40 MG/0.4 ML SQ SCH (09:00)
[2021-11-04] MEDS: EMTRICITABINE PO SCH (09:00)
[2021-11-04] MEDS: TENOFOV ALAFENAM PO SCH (09:00)
[2021-11-04] MEDS: SPIRONOLACTONE 25 MG TABLET PO SCH ×2 (09:12→21:09)
[2021-11-04] MEDS: HYDRALAZINE HCL 25 MG TABLET PO SCH ×3 (09:12→21:07)
[2021-11-04] MEDS: SERTRALINE HCL 100 MG TAB PO SCH ×2 (09:12→21:10)
[2021-11-04] MEDS: BUPROPION HCL XL 150 MG TAB PO SCH (09:14)
[2021-11-04] MEDS: AMLODIPINE 10 MG TAB PO SCH (09:14)
[2021-11-04] MEDS: METOPROLOL TAR 50 MG TAB PO SCH ×2 (09:14→21:07)
[2021-11-04] MEDS: PANTOPRAZOLE 40MG TABLET PO SCH ×2 (09:15→21:10)
[2021-11-04] MEDS: lisinopriL 20 MG TAB PO SCH ×2 (09:15→21:09)
--- NOTE | 2021-11-04 11:35 | RAD REPORT ---
EXAM DESCRIPTION: RAD - Lumbar Puncture For Dx - 11/04/2021 11:21 am CLINICAL HISTORY: MS COMPARISON: None. TECHNIQUE: The procedure, risks and alternatives to the procedure were discussed with the patient in detail. After answering all questions, both oral and written consent were obtained. Time-out proced ure was performed. Patient was off of Lovenox therapy for greater than 12 hours. Platelet values were normal. The patient was placed in an oblique prone position on the fluoroscopic table. The skin of the lower back was prepped and draped in the usual sterile fashion. After anesthetizing the skin and deeper sof t tissues with 1% lidocaine, a 22 gauge needle was advanced into the thecal sac at the L3 level. Intrathecal placement was confirmed with clear colorless CSF observed. Approximately 8.5 mL of CSF wa s obtained for laboratory studies requested by the primary service. At the conclusion of the procedure, the needle was withdrawn and a sterile bandage placed over the pu ncture site. The patient tolerated the procedure well without immediate complications. Post-procedu re care and precaution instructions were discussed with the patient before the LP procedure. There were 2 fluoroscopic spot images obtained. Fluoro time was 1.2 minutes. IMPRESSION: Successful fluoroscopic guided lumbar puncture. All obtained fluid was sent to the lab for studies requested by the referring physician.
[2021-11-04] MEDS: HYDROCODONE/APAP 5/325 MG TAB PO PRN ×2 (12:58→21:06)
--- NOTE | 2021-11-04 13:18 | P.PN ---
Subjective Date of Service: 11/04/21 Chief Complaint: Recurrent Falls Status post lumbar puncture today. Patient is complaining of back pain. Physical Examination - Vital Signs Temperature: 97.5 F Blood Pressure: 157/72 Pulse: 53 Respirations: 18 Pulse Ox (%): 100 Assessment And Plan - Plan Physical Exam General: AAOx3, NAD, obese HEENT: Mucous membr. moist/pink Respiratory: Clear to auscultation bilaterally. Cardiovascular: Regular rate/rhythm, no edema Gastrointestinal: soft, nontender, nondistended MSK: generalized weakness; +SI joint tenderness, b/l knee hyperreflexia Problem List recurrent falls pain; muscle spasms acute on chronic diastolic CHF (HFpEF), resolved chronic COPD, on O2 at home anemia of chronic disease; iron deficiency anemia h/o afib, paroxysmal h/o CAD h/o HTN recent cardiac cath (10/13) negative patient with multiple presentations to ED over last 1-2 years for falls / headache. CT head negative; CT lumbar/pelvis, no occult fracture. neuro consulted for input on patient's falls, instability / dizziness. Dr. Lehman recommend LP to r/o demyelinating process and MS. LP done today, CSF studies ordered. Resume home dose antiplatelets-aspirin and Plavix MRI: likely microvascular ischemic changes, possible demyelinating process; no central canal stenosis, Epidural lipomatosis/sacral spinal canal. Mild narrowing of the thecal sac which measures 10 mm. PT consulted -patient advised to use walker at all times, did not get one at home after recent discharge She would benefit from SNF given h/o falls; she is agreeable. continue home HIV medications continue bronchodilators as needed for COPD iron deficiency / anemia could be acutely worsening patients chronic falls/gait instability completed IV iron x 4 doses [place], lidocaine, Flexeril as needed Disposition: Skilled rehab.
[2021-11-04 14:12] LABS: CSF Glucose 54 mg/dL (40-70)
[2021-11-04 14:33] LABS: Appearance CLEAR (CLEAR); Body Fluid Source CSF; Color of fluid Colorless (COLORLESS); Fluid Total Volume 9.5 ml
[2021-11-04 14:34] LABS: Appearance CLEAR (CLEAR); Body Fluid Source CSF; Body Fluid WBC 1 /mm^3; Color of fluid Colorless (COLORLESS)
[2021-11-04 14:35] LABS: Body Fluid WBC 0 /mm^3
--- NOTE | 2021-11-04 15:16 | P.DS ---
Admission Date: 10/27/21 Discharge Date: 11/04/21 Disposition: TRANSFER TO SNF - REHAB Discharge Condition: FAIR Reason for Admission: Recurrent Falls Brief History of Present Illness: Patient is a 66-year-old female with history of COPD, diastolic CHF, hypertension, and frequent falls who presented to the ED via EMS for a fall for the second time today (after just being discharged from ED). Per local delivery driver, she got out of the cab, starting walking in circles, then fell onto grass. Upon arrival, she was complaining of 10/10 bilateral knee pain, headache, and back pain. Imaging negative. She was admitted 2 weeks prior for falls/generalized weakness, evaluated by physical therapy and recommended to only ambulate with a walker. The team discussed possibility of correction facility for physical therapy, which she declined. Patient was also evaluated by Cardiology due to chest pain and dizziness. Cardiac catheterization done was negative. She did not require any stents / other interventions. Patient admitted for further management. Hospital Course: Diagnosis recurrent falls pain; muscle spasms acute on chronic diastolic CHF (HFpEF), resolved chronic COPD, on O2 at home anemia of chronic disease; iron deficiency anemia h/o afib, paroxysmal h/o CAD h/o HTN Patient admitted to the medical floor. patient with multiple presentations to ED over last 1-2 years for falls / headache. CT head negative; CT lumbar/pelvis, no occult fracture. neuro consulted for input on patient's falls, instability / dizziness. Dr. Lehman recommended LP to r/o demyelinating process and MS. LP done today. ASA and plavix held for at least 5 days prior to LP. LP done and CSF studies ordered. MRI of the brain: likely microvascular ischemic changes, possible demyelinating process. MRI of Cervical and lumbar spine: no central canal stenosis, Epidural lipomatosis/sacral spinal canal. Mild narrowing of the thecal sac which measures 10 mm. PT consulted -patient advised to use walker at all times. continued home HIV medications continued bronchodilators as needed for COPD iron deficiency / anemia could be acutely worsening patients chronic falls/gait instability completed IV iron x 4 doses. Pain managed with [place], lidocaine and Flexeril. Patient tolerating physical therapy and deemed stable for discharge. She has been accepted to [facility] for rehab. She will follow with Dr. Lehman regarding her CSF results. Vital Signs/Physical Exam: Temp Pulse Resp BP Pulse Ox 97.5 F 53 18 157/72 H 100 11/04/21 13:18 11/04/21 13:18 11/04/21 13:18 11/04/21 13:18 11/04/21 13:18 General: Alert, In no apparent distress, Oriented x3 HEENT: Mucous membr. moist/pink Neck: JVD not distended Respiratory: Clear to auscultation bilaterally, Normal air movement Cardiovascular: No edema, Regular rate/rhythm, Normal S1 S2 Gastrointestinal: Normal bowel sounds, Soft and benign, Non-distended, No tenderness Musculoskeletal: No swelling Integumentary: No rashes, No erythema Neurological: Normal speech, Normal strength at 5/5 x4 extr Lymphatics: No axilla or inguinal lymphadenopathy Laboratory Data at Discharge: WBC 5.9 K/uL (4.3-10.9) D 10/31/21 06:45 Hgb 8.9 g/dL (12.0-15.0) L 10/31/21 06:45 Hct 29.1 % (36.0-45.0) L 10/31/21 06:45 Plt Count 169 K/uL (152-406) 10/31/21 06:45 Sodium 137 mmol/L (136-145) 11/03/21 06:08 Potassium 4.0 mmol/L (3.5-5.1) 11/04/21 14:07 BUN 24 mg/dL (7-18) H 11/03/21 06:08 Creatinine 1.58 mg/dL (0.55-1.3) H 11/03/21 06:08 Glucose 126 mg/dL (74-106) H 11/03/21 06:08 Magnesium 2.4 mg/dL (1.8-2.4) 11/02/21 05:45 Total Bilirubin 0.3 mg/dL (0.2-1.0) 10/27/21 07:36 AST 29 U/L (15-37) 10/27/21 07:36 ALT 18 U/L (12-78) 10/27/21 07:36 Alkaline Phosphatase 70 U/L (45-117) 10/27/21 07:36 Home Medications: Raltegravir Potassium [Isentress] 1 tab PO BID 02/28/12 Sertraline [Zoloft*] 2 tab PO BID 09/15/12 Metoprolol Tartrate 100 mg PO BID #60 tablet 02/03/20 Emtricitabine/Tenofov Alafenam [Descovy 200-25 mg Tablet] 1 tab PO DAILY 03/05/21 Amlodipine Besylate 1 tab PO DAILY 03/30/21 Dexlansoprazole [Dexilant] 60 mg PO DAILY 03/30/21 Lisinopril [Zestril] 1 tab PO BID 08/28/21 Hydralazine HCl 50 mg PO BEDTIME 10/12/21 Bupropion HCl [Wellbutrin Xl] 1 tab PO DAILY 10/16/21 Clopidogrel Bisulfate [Plavix*] 1 tab PO DAILY 10/16/21 Famotidine 1 tab PO Q12H 10/16/21 Furosemide 1 tab PO Q24H 10/16/21 Meclizine HCl [Antivert*] 25 mg PO TID PRN 5 Days #15 tab 10/16/21 Trazodone [Desyrel*] 1 tab PO BEDTIME 10/16/21 Hydrocodone 5/APAP 325 [[place] 5/325*] 1 tab PO Q6H PRN #12 tab 11/04/21 Lidocaine 4% Patch [Lidoderm 5% Patch*] 1 patch TOP DAILY #30 patch 11/04/21 Spironolactone [Aldactone*] 25 mg PO BID tab 11/04/21 New Medications: Hydrocodone 5/APAP 325 [[place] 5/325*] 1 tab PO Q6H PRN #12 tab PRN Reason: Pain Scale 8-10 (Severe) Diet: AHA Activity: Fall precautions Followup: Haim Lehman MD [ASSOCIATE-ACTIVE - CAN ADMIT] - (within 2 weeks.) Unknown,U [Primary Care Provider] - Time spent managing pt's care (in minutes): 35
[2021-11-04] MEDS ORDERED: MORPHINE 2 MG/ML SYR IV ONE (17:00)
[2021-11-04] MEDS: FUROSEMIDE 40 MG TABLET PO SCH (17:14)
[2021-11-04] MEDS: CYCLOBENZAPRINE 10 MG TAB PO PRN (21:07)
[2021-11-04] MEDS: TRAZODONE 50 MG TABLET PO SCH (21:07)
[2021-11-05] MEDS: FAMOTIDINE 20 MG TAB PO SCH ×2 (04:38→18:03)
[2021-11-05 04:47] LABS: Absolute Lymphocytes (CBC) 0.8 K/uL (0.7-4.9); Hematocrit 31.4 % (36.0-45.0); Lymphocytes % 15.8 % (15.3-44.8); MCV 73.7 fL (80-100); MPV 7.4 fL (7.6-11.3); RBC Red Blood Cell Count 4.26 M/uL (3.86-4.86)
[2021-11-05 05:10] LABS: Potassium 3.5 mmol/L (3.5-5.1)
[2021-11-05] MEDS: HYDROCODONE/APAP 5/325 MG TAB PO PRN ×2 (05:55→14:38)
[2021-11-05] MEDS: ENOXAPARIN 40 MG/0.4 ML SQ SCH (08:48)
[2021-11-05] MEDS: SPIRONOLACTONE 25 MG TABLET PO SCH ×2 (08:51→20:35)
[2021-11-05] MEDS: HYDRALAZINE HCL 25 MG TABLET PO SCH ×3 (08:52→20:35)
[2021-11-05] MEDS: RALTEGRAVIR POTASSIUM 400 MG PO SCH ×2 (08:53→20:38)
[2021-11-05] MEDS: EMTRICITABINE PO SCH (08:53)
[2021-11-05] MEDS: METOPROLOL TAR 50 MG TAB PO SCH ×2 (08:53→20:35)
[2021-11-05] MEDS: TENOFOV ALAFENAM PO SCH (08:53)
[2021-11-05] MEDS: AMLODIPINE 10 MG TAB PO SCH (08:54)
[2021-11-05] MEDS: lisinopriL 20 MG TAB PO SCH ×2 (08:54→20:36)
[2021-11-05] MEDS: SERTRALINE HCL 100 MG TAB PO SCH ×2 (08:55→20:35)
[2021-11-05] MEDS: PANTOPRAZOLE 40MG TABLET PO SCH ×2 (08:55→20:35)
[2021-11-05] MEDS: KETOROLAC 10 MG TAB PO PRN ×2 (08:56→18:15)
[2021-11-05] MEDS: LIDOCAINE 4% PATCH TOP SCH (08:57)
[2021-11-05] MEDS: BUPROPION HCL XL 150 MG TAB PO SCH (08:58)
[2021-11-05] MEDS ORDERED: POTASSIUM CL SA 10 MEQ TAB PO ONE (09:00)
--- NOTE | 2021-11-05 13:26 | P.PN ---
Subjective Date of Service: 11/05/21 Chief Complaint: Recurrent Falls Patient has no new complain. Physical Examination - Vital Signs Temperature: 97.8 F Blood Pressure: 126/70 Pulse: 55 Respirations: 16 Pulse Ox (%): 95 Assessment And Plan - Plan Physical Exam General: AAOx3, NAD, obese Respiratory: Clear to auscultation bilaterally. Cardiovascular: Regular rate/rhythm, no edema Gastrointestinal: soft, nontender, nondistended MSK: No swelling. Neuro: Alert and oriented x3, no focal motor deficits. Problem List recurrent falls pain; muscle spasms acute on chronic diastolic CHF (HFpEF), resolved chronic COPD, on O2 at home anemia of chronic disease; iron deficiency anemia h/o afib, paroxysmal h/o CAD h/o HTN recent cardiac cath (10/13) negative patient with multiple presentations to ED over last 1-2 years for falls / headache. CT head negative; CT lumbar/pelvis, no occult fracture. neuro consulted for input on patient's falls, instability / dizziness. Dr. Lehman recommend LP to r/o demyelinating process and MS. LP done today, CSF studies ordered. Continue aspirin and Plavix MRI: likely microvascular ischemic changes, possible demyelinating process; no central canal stenosis, Epidural lipomatosis/sacral spinal canal. Mild narrowing of the thecal sac which measures 10 mm. PT consulted -patient advised to use walker at all times, did not get one at home after recent discharge She would benefit from SNF given h/o falls; she is agreeable. continue home HIV medications continue bronchodilators as needed for COPD iron deficiency / anemia could be acutely worsening patients chronic falls/gait instability completed IV iron x 4 doses [place], lidocaine, Flexeril as needed Disposition: Skilled rehab. Awaiting insurance authorization.
[2021-11-05] MEDS: FUROSEMIDE 40 MG TABLET PO SCH (18:03)
[2021-11-05] MEDS: TRAZODONE 50 MG TABLET PO SCH (20:34)
[2021-11-05 21:03] VITALS: O2SAT 97
[2021-11-06] MEDS: FAMOTIDINE 20 MG TAB PO SCH (05:00)
[2021-11-06] MEDS: clonazePAM 1 MG TAB PO PRN (06:50)
[2021-11-06 07:44] LABS: Potassium 3.7 mmol/L (3.5-5.1)
[2021-11-06] MEDS: SPIRONOLACTONE 25 MG TABLET PO SCH (08:26)
[2021-11-06] MEDS: LIDOCAINE 4% PATCH TOP SCH (08:26)
[2021-11-06] MEDS: HYDRALAZINE HCL 25 MG TABLET PO SCH (08:28)
[2021-11-06] MEDS: METOPROLOL TAR 50 MG TAB PO SCH (08:29)
[2021-11-06] MEDS: EMTRICITABINE PO SCH (08:29)
[2021-11-06] MEDS: RALTEGRAVIR POTASSIUM 400 MG PO SCH (08:29)
[2021-11-06] MEDS: TENOFOV ALAFENAM PO SCH (08:29)
[2021-11-06] MEDS: ENOXAPARIN 40 MG/0.4 ML SQ SCH (08:30)
[2021-11-06] MEDS: AMLODIPINE 10 MG TAB PO SCH (08:30)
[2021-11-06] MEDS: BUPROPION HCL XL 150 MG TAB PO SCH (08:31)
[2021-11-06] MEDS: PANTOPRAZOLE 40MG TABLET PO SCH (08:31)
[2021-11-06] MEDS: lisinopriL 20 MG TAB PO SCH (08:31)
[2021-11-06] MEDS: SERTRALINE HCL 100 MG TAB PO SCH (08:32)
[2021-11-06 12:43] VITALS: BP 123/68; TEMP 96.9
[2021-11-11 00:18] LABS: BETA A 40 6802 pg/mL; BETA A 42 1160 pg/mL; BETA A 42/40 RATIO 0.17
== END 2021-11-06 13:18 | disposition home health service (06) | DRG 91 ==
LOC: ER 23:36 → ERHOLD 10-26 02:51 → 2ND 10-26 12:38 → OBSVTOIN 10-27 15:57
PROVIDERS: ADMIT Internal Medicine; ATTEND Internal Medicine
DX: R26.89 Other abnormalities of gait and mobility (principal); I50.33 Acute on chronic diastolic (congestive) heart failure; B20 Human immunodeficiency virus [HIV] disease; G37.9 Demyelinating disease of central nervous system, unspecified; R53.1 Weakness; Z91.81 History of falling; G89.4 Chronic pain syndrome; I11.0 Hypertensive heart disease with heart failure; D50.9 Iron deficiency anemia, unspecified; Z79.899 Other long term (current) drug therapy; J44.9 Chronic obstructive pulmonary disease, unspecified; I48.0 Paroxysmal atrial fibrillation; I25.10 Atherosclerotic heart disease of native coronary artery without angina pectoris; M47.816 Spondylosis without myelopathy or radiculopathy, lumbar region; R42 Dizziness and giddiness; D63.8 Anemia in other chronic diseases classified elsewhere; E87.6 Hypokalemia; M54.40 Lumbago with sciatica, unspecified side; Z99.81 Dependence on supplemental oxygen; Z20.822 Contact with and (suspected) exposure to COVID-19
CPT/HCPCS: 36415; 70450; 70553; 71045; 72100; 72131; 72141; 72148; 72192; 72195; 72220; 77003; 80048; 80076; 80307; 80320; 81003; 82040; 82042; 82164; 82542; 82728; 82784; 82945; 83540; 83735; 84132; 84157; 84166; 84466; 85025; 85027; 85652; 86140; 86200; 86430; 86592; 86618; 86812; 87015; 87116; 87206; 88108; 88161; 89050; 93005; 96374; 97110; 97112; 97116; 97161; 97530; 99284; 99285; A9577; G0378; J0360; J1650; J2001; J2270; J2405; J2916; J7050; J8597; U0003

== ENCOUNTER 2021-11-20 17:42 | Emergency (ER) | payer OTHER ==
[2021-11-20] MEDS ORDERED: ONDANSETRON 4 MG (ODT) TAB ONE (20:06)
[2021-11-20] MEDS ORDERED: HYDROMORPHONE HCL 0.5 MG/0.5 ML INJ ONE ×2 (20:06→22:30)
[2021-11-20] MEDS ORDERED: LIDOCAINE 4% PATCH ONE (20:34)
[2021-11-20] MEDS ORDERED: DIAZEPAM 5 MG TABLET ONE (21:05)
[2021-11-20] MEDS ORDERED: HYDRALAZINE HCL 10 MG TABLET ONE (21:05)
--- NOTE | 2021-11-20 22:19 | EDPHYS ---
Physician Documentation [facility] Name: Fawn Fleming Age: 66 yrs Sex: Female : 1955 Arrival Date: 11/20/2021 Time: 17:46 Bed 14 Private MD: Lele Rahman H ED Physician Justus Kolb HPI: 11/20 19:40 This 66 yrs old Female presents to ER via Wheelchair with complaints of Hip Pain. pm1 19:40 The patient or guardian reports pain. that occurred at an unknown site, sustained from pm1 a chronic condition, degenerative disc disease, The patient is able to self ambulate. The patient is able to bear their full body weight. The complaints affect the lumbar area and cervical area. 19:40 Onset: The symptoms/episode began/occurred chronic problem that is worse today. pm1 Modifying factors: The symptoms are alleviated by remaining still, the symptoms are aggravated by movement. Associated signs and symptoms: Pertinent negatives: chest pain, fever, headache, shortness of breath, weakness, incontinence. Severity of symptoms: in the emergency department the symptoms are actually worse. The patient has experienced similar episodes in the past, chronically. 19:40 The patient has been recently seen by a physician: 3 times in October for the same chronic pm1 back pain. Historical: - Allergies: 18:08 Bactrim DS; vg1 18:08 butorphanol tartrate; vg1 18:08 Fentanyl; vg1 18:08 Reglan; vg1 18:08 Stadol; vg1 18:08 sulfamethoxazole (bulk); vg1 18:08 TRIMETHOPRIM; vg1 - PMHx: 18:08 Anxiety; Atrial Fib; Bipolar disorder; Chronic pain; COPD; esophageal varices; vg1 Hepatitis; HIV; Hypertension; Migraines; Panic Attacks; - PSHx: 18:08 Appendectomy; Bilateral shoulder repair; Cholecystectomy; hernia repair; R wrist SX; vg1 - Immunization history:: Client reports receiving the 2nd dose of the Covid vaccine. - Social history:: Smoking status: Patient/guardian denies using tobacco, the patient reports quitting approximately 2 years ago. ROS: 19:40 Constitutional: Negative for fever, chills, and weight loss, Cardiovascular: Negative pm1 for chest pain, palpitations, and edema, Respiratory: Negative for shortness of breath, cough, wheezing, and pleuritic chest pain. 19:40 MS/Extremity: Negative for injury and deformity, Skin: Negative for injury, rash, and discoloration. 19:40 Neuro: Negative for headache, weakness, numbness, tingling, and seizure. 19:40 Neck: Positive for of the left trapezius, pain. 19:40 Abdomen/GI: Negative for abdominal pain, nausea, vomiting, and diarrhea. 19:40 Back: Positive for of the low back area, pain. 19:40 All other systems are negative. Exam: 19:40 Constitutional: This is a well developed, well nourished patient who is awake, alert, pm1 and in no acute distress. Head/Face: Normocephalic, atraumatic. 19:40 Skin: Warm, dry with normal turgor. Normal color with no rashes, no lesions, and no evidence of cellulitis. 19:40 Neck: External neck: tenderness, that is mild, of the left trapezius, muscle spasm, C-spine: vertebral tenderness, is not appreciated. 19:40 Back: vertebral tenderness, is appreciated at sacrum, muscle spasm, is appreciated in the left low back and right low back. 19:40 Musculoskeletal/extremity: Extremities: all appear grossly normal, with no appreciated pain with palpation, ROM: no acute changes, the right foot, left foot, right leg and left leg 19:40 Neuro: Exam negative for acute changes, Orientation: is normal, Mentation: is normal, Motor: moves all fours, strength is 5/5 in the plantar and dorsiflexion of bilateral great toes, Sensation: no obvious gross deficits. Vital Signs: 18:06 BP 161 / 100; Pulse 75; Resp 18; Temp 98.6(TE); Pulse Ox 95% on R/A; Weight 81.65 kg; vg1 Height 5 ft. 4 in. (162.56 cm); Pain 9/10; 20:14 BP 213 / 95; Pulse 88; Resp 18; Pulse Ox 99% on R/A; bh1 21:03 BP 207 / 113; Pulse 88; Resp 18; Temp 98.3; Pulse Ox 100% on R/A; bh1 21:40 BP 176 / 93; Pulse 88; Resp 20; Pulse Ox 98% on R/A; bh1 22:33 BP 145 / 78; Pulse 76; Resp 20; Temp 98.3(O); Pulse Ox 100% on R/A; bh1 18:06 Body Mass Index 30.90 (81.65 kg, 162.56 cm) vg1 MDM: 19:17 Patient medically screened. pm1 19:46 Data reviewed: vital signs. Data interpreted: Pulse oximetry: on room air is 95 %. pm1 Interpretation: normal. 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 Special discussion: I have referred the patient to see his PCP for further evaluation of high blood pressure. pain management for her chronic pain. Administered Medications: 20:13 Drug: Dilaudid (HYDROmorphone) 1 mg Route: IM; Site: left deltoid; 1 20:14 Follow up: Response: No adverse reaction 1 20:13 Drug: Zofran (Ondansetron) 4 mg Route: PO; bh1 20:13 Follow up: Response: No adverse reaction 1 21:02 Drug: Lidoderm Patch 5 % (700 mg/patch) 1 patches Route: Topical; Site: affected area; bh1 21:02 Follow up: Response: No adverse reaction 1 21:02 Drug: hydrALAZINE 10 mg Route: PO; bh1 21:02 Follow up: Response: No adverse reaction 1 21:02 Drug: Valium (diazepam) 5 mg Route: PO; bh1 21:02 Follow up: Response: No adverse reaction 1 22:20 Drug: Dilaudid (HYDROmorphone) 1 mg Route: IM; Site: left deltoid; 1 22:34 Follow up: Response: [facility] Disposition Summary: 11/20/21 22:19 Discharge Ordered Location: Home [facility] Condition: Stable brian Diagnosis - Chronic Pain [facility] Followup: yas - With: Private Physician - When: 2 - 3 days - Reason: Recheck today's complaints, Continuance of care, Re-evaluation by your physician Discharge Instructions: - Discharge Summary Sheet [facility] - Chronic Pain, Adult [facility] Forms: - Medication Reconciliation Form yas - Thank You Letter jmm - Antibiotic Education jmm - Prescription Opioid Use [facility] Prescriptions: - Hydralazine 10 mg Oral Tablet - take 1 tablet by ORAL route 4 times per day with food; 30 tablet; Refills: 0, jmm Product Selection Permitted Signatures: Lv Boudreaux PA PA jmm Marinas, Patrick, [employer] DOCK[employer] CLERK pm1 Renae Camarillo RN RN vg1 Heydi Alfredo RN RN bh1
--- NOTE | 2021-11-20 22:19 | ER ---
Nurse's Notes [facility] Name: Fawn Fleming Age: 66 yrs Sex: Female : 1955 Arrival Date: 11/20/2021 Time: 17:46 Bed 14 Private MD: Lele Rahman H Diagnosis: Chronic Pain Presentation: 11/20 18:06 Chief complaint: Chief complaint: Patient states: "my hips are locking up again and I vg1 cant walk and the back of my neck is hurting really back" Pt denies headache. Also stated fell a couple of times today due to hip pain. Coronavirus screen: Vaccine status: Patient reports receiving the 2nd dose of the covid vaccine. Client denies travel out of the [place] in the last 14 days. Ebola Screen: Patient denies exposure to infectious person. Patient denies travel to an Ebola-affected area in the 21 days before illness onset. Initial Sepsis Screen: Does the patient meet any 2 criteria? No. Patient's initial sepsis screen is negative. Does the patient have a suspected source of infection? No. Patient's initial sepsis screen is negative. Risk Assessment: Do you want to hurt yourself or someone else? Patient reports no desire to harm self or others. Onset of symptoms was November 20, 2021. 18:06 Method Of Arrival: Wheelchair vg1 18:06 Acuity: BLAYNE 4 vg1 Triage Assessment: 18:06 General: Appears uncomfortable, Behavior is cooperative. Pain: Complains of pain in vg1 pelvis Pain currently is 9 out of 10 on a pain scale. Musculoskeletal: Reports numbness in left arm Denies numbness in, right leg and left leg. Historical: - Allergies: 18:08 Bactrim DS; vg1 18:08 butorphanol tartrate; vg1 18:08 Fentanyl; vg1 18:08 Reglan; vg1 18:08 Stadol; vg1 18:08 sulfamethoxazole (bulk); vg1 18:08 TRIMETHOPRIM; vg1 - PMHx: 18:08 Anxiety; Atrial Fib; Bipolar disorder; Chronic pain; COPD; esophageal varices; vg1 Hepatitis; HIV; Hypertension; Migraines; Panic Attacks; - PSHx: 18:08 Appendectomy; Bilateral shoulder repair; Cholecystectomy; hernia repair; R wrist SX; vg1 - Immunization history:: Client reports receiving the 2nd dose of the Covid vaccine. - Social history:: Smoking status: Patient/guardian denies using tobacco, the patient reports quitting approximately 2 years ago. Screenin:42 Abuse screen: Denies threats or abuse. Nutritional screening: No deficits noted. bh1 Tuberculosis screening: No symptoms or risk factors identified. Fall Risk None identified. Assessment: 18:41 Reassessment: No changes from previously documented assessment. General: Appears in no [facility] apparent distress. Behavior is calm, cooperative, appropriate for age. Pain: Complains of pain in left hip and right hip. Vital Signs: 18:06 BP 161 / 100; Pulse 75; Resp 18; Temp 98.6(TE); Pulse Ox 95% on R/A; Weight 81.65 kg; vg1 Height 5 ft. 4 in. (162.56 cm); Pain 9/10; 20:14 BP 213 / 95; Pulse 88; Resp 18; Pulse Ox 99% on R/A; bh1 21:03 BP 207 / 113; Pulse 88; Resp 18; Temp 98.3; Pulse Ox 100% on R/A; bh1 21:40 BP 176 / 93; Pulse 88; Resp 20; Pulse Ox 98% on R/A; bh1 22:33 BP 145 / 78; Pulse 76; Resp 20; Temp 98.3(O); Pulse Ox 100% on R/A; bh1 18:06 Body Mass Index 30.90 (81.65 kg, 162.56 cm) 1 ED Course: 17:46 Patient arrived in ED. mr 17:46 Lele Rahman DO is Private Physician. mr 18:06 Arm band placed on. 1 18:08 Triage completed. 1 18:39 Heydi Alfredo, ASHLEY is Primary Nurse. 1 18:42 No apparent distress. Resting quietly. Awaiting ED provider evaluation. 1 18:42 Patient has correct armband on for positive identification. Bed in low position. Call [facility] light in reach. Side rails up X 1. Adult w/ patient. 18:42 No provider procedures requiring assistance completed. Patient did not have IV access [facility] during this emergency room visit. 19:17 Austin Raza NP is PHCP. pm1 19:17 Justus Kolb MD is Attending Physician. pm1 20:14 No apparent distress. Resting quietly. Awaiting disposition. 1 20:35 PHCP role handed off by Austin Raza NP [facility] 20:35 Lv Boudreaux PA is PHCP. [facility] 21:03 No apparent distress. Resting quietly. Awaiting disposition. bh1 21:40 No apparent distress. Resting quietly. Awaiting disposition. [facility] Administered Medications: 20:13 Drug: Dilaudid (HYDROmorphone) 1 mg Route: IM; Site: left deltoid; 1 20:14 Follow up: Response: No adverse reaction 1 20:13 Drug: Zofran (Ondansetron) 4 mg Route: PO; 1 20:13 Follow up: Response: No adverse reaction [facility] 21:02 Drug: Lidoderm Patch 5 % (700 mg/patch) 1 patches Route: Topical; Site: affected area; 1 21:02 Follow up: Response: No adverse reaction [facility] 21:02 Drug: hydrALAZINE 10 mg Route: PO; 1 21:02 Follow up: Response: No adverse reaction [facility] 21:02 Drug: Valium (diazepam) 5 mg Route: PO; 1 21:02 Follow up: Response: No adverse reaction [facility] 22:20 Drug: Dilaudid (HYDROmorphone) 1 mg Route: IM; Site: left deltoid; 1 22:34 Follow up: Response: No adverse reaction [facility] Medication: 18:42 VIS not applicable for this client. [facility] Outcome: 22:19 Discharge ordered by . [facility] 22:33 Discharged to home via wheelchair. [facility] 22:33 Condition: good 22:33 Discharge instructions given to patient, Instructed on discharge instructions, follow up and referral plans. no driving heavy equipment, Demonstrated understanding of instructions, follow-up care, medications. 22:35 Patient left the ED. [facility] Signatures: Lv Boudreaux PA PA [facility] [place] Austin Raza NP [employer] pm1 Renae Camarillo RN RN vg1 Heydi Alfredo RN RN 1 Corrections: (The following items were deleted from the chart) 18:09 18:06 Pulse 75bpm; Resp 18bpm; Pulse Ox 95% RA; Temp 98.6F Temporal; 81.65 kg; Height 5 vg1 ft. 4 in.; BMI: 30.9; Pain 9/10; vg1
[2021-11-20 23:32] VITALS: TEMP 98.3
[2021-11-20 23:35] VITALS: BP 145/78; O2SAT 100
== END 2021-11-20 22:35 | disposition home or self-care (01) ==
LOC: ER 17:42
DX: G89.29 Other chronic pain (principal); I10 Essential (primary) hypertension; Z21 Asymptomatic human immunodeficiency virus [HIV] infection status; J44.9 Chronic obstructive pulmonary disease, unspecified; Z88.1 Allergy status to other antibiotic agents; Z88.2 Allergy status to sulfonamides; Z88.5 Allergy status to narcotic agent; Z88.8 Allergy status to other drugs, medicaments and biological substances
CPT/HCPCS: 96372; 99283; Q0162; J2001; J1170 ×2

== ENCOUNTER 2021-11-21 11:03 | Emergency (ER) | payer OTHER ==
--- NOTE | 2021-11-21 15:04 | ER ---
Nurse's Notes [facility] Name: Fawn Fleming Age: 66 yrs Sex: Female : 1955 Arrival Date: 11/21/2021 Time: 11:05 Bed 17 Private MD: Lele Rahman H Diagnosis: Low back pain Presentation: 11/21 11:16 Chief complaint: Patient states: "when i got home last night from leaving here i fell vg1 about three times and the last time I just couldn't get up, I dont know whats wrong with my legs" Pt states pain in TYRONE hips and lower back. Coronavirus screen: Vaccine status: Patient reports receiving the 2nd dose of the covid vaccine. Client denies travel out of the [place] in the last 14 days. Ebola Screen: Patient denies exposure to infectious person. Patient denies travel to an Ebola-affected area in the 21 days before illness onset. Initial Sepsis Screen: Does the patient meet any 2 criteria? No. Patient's initial sepsis screen is negative. Does the patient have a suspected source of infection? No. Patient's initial sepsis screen is negative. Risk Assessment: Do you want to hurt yourself or someone else? Patient reports no desire to harm self or others. Onset of symptoms was November 07, 2021. 11:16 Method Of Arrival: Wheelchair vg1 11:16 Acuity: BLAYNE 3 vg1 Triage Assessment: 11:19 General: Appears in no apparent distress. uncomfortable, Behavior is calm, cooperative. vg1 Pain: Complains of pain in Right hip and Left hip. Historical: - Allergies: 11:19 Bactrim DS; vg1 11:19 butorphanol tartrate; vg1 11:19 Fentanyl; vg1 11:19 Reglan; vg1 11:19 Stadol; vg1 11:19 sulfamethoxazole (bulk); vg1 11:19 TRIMETHOPRIM; vg1 - PMHx: 11:19 Anxiety; Atrial Fib; Bipolar disorder; Chronic pain; COPD; esophageal varices; vg1 Hepatitis; HIV; Hypertension; Migraines; Panic Attacks; - PSHx: 11:19 Appendectomy; Bilateral shoulder repair; Cholecystectomy; hernia repair; R wrist SX; vg1 - Immunization history:: Client reports receiving the 2nd dose of the Covid vaccine. - Social history:: Smoking status: Patient/guardian denies using tobacco, the patient reports quitting approximately 2 years ago. Screenin:34 Abuse screen: Denies threats or abuse. Denies injuries from another. Nutritional jg9 screening: No deficits noted. Tuberculosis screening: No symptoms or risk factors identified. Fall Risk Fall in past 12 months (25 points). Assessment: 11:34 Reassessment: No changes from previously documented assessment. Patient and/or family jg9 updated on plan of care and expected duration. Pain level reassessed. Patient is alert, oriented x 3, equal unlabored respirations, skin warm/dry/pink. 13:30 Reassessment: Patient appears in no apparent distress at this time. Patient and/or ph family updated on plan of care and expected duration. Pain level reassessed. Patient is alert, oriented x 3, equal unlabored respirations, skin warm/dry/pink. 15:28 Reassessment: Patient appears in no apparent distress at this time. Patient and/or ph family updated on plan of care and expected duration. Pain level reassessed. Patient is alert, oriented x 3, equal unlabored respirations, skin warm/dry/pink. Offered pt toradol IM for pain, pt refused states that it does not work for her, informed pt that he doctor would not be ordering any narcotics because this is a chronic issue and that she needs to follow up w/ a pain management doctor for pain control. Pt taken to lobby in wheelchair and states that she will call a taxi. Vital Signs: 11:16 BP 122 / 76; Pulse 63; Resp 18; Temp 98.7; Pulse Ox 93% on R/A; Weight 81.65 kg; Height vg1 5 ft. 4 in. (162.56 cm); Pain 9/10; 12:15 BP 130 / 79; Pulse 52; Resp 18 S; Pulse Ox 99% on 3 lpm NC; jg9 13:30 BP 134 / 84; Pulse 54; Resp 16; Pulse Ox 98% on 3 lpm NC; ph 15:32 BP 127 / 78; Pulse 54; Resp 18; Pulse Ox 99% on 3 lpm NC; ph 11:16 Body Mass Index 30.90 (81.65 kg, 162.56 cm) vg1 ED Course: 11:05 Patient arrived in ED. mr 11:05 Rahman, Urmila-FranciscoDO is Private Physician. mr 11:17 Joey Jung MD is Attending Physician. kdr 11:19 Triage completed. vg1 11:19 Arm band placed on. vg1 11:27 Karen Joseph, RN is Primary Nurse. jg9 11:34 Patient has correct armband on for positive identification. Bed in low position. Call jg9 light in reach. Side rails up X 1. 12:28 No apparent distress. Resting quietly. jg9 15:03 RahmanLele birdDO is Referral Physician. kdr 15:33 No provider procedures requiring assistance completed. Patient did not have IV access ph during this emergency room visit. Administered Medications: 15:18 Not Given (Patient Refused): Ketorolac 15 mg IVP once ph Medication: 11:34 VIS not applicable for this client. jg9 Outcome: 15:04 Discharge ordered by MD. kdr 15:33 Discharged to home via wheelchair. ph 15:33 Condition: good 15:33 Discharge instructions given to family, Instructed on discharge instructions, follow up and referral plans. Demonstrated understanding of instructions, follow-up care. 15:34 Patient left the ED. ph Signatures: Joey Jung MD MD [facility] [place] mr Solange Bennett, RN RN Renae Camarillo RN RN vg1 Karen Joseph, RN RN jg9 Corrections: (The following items were deleted from the chart) 11:20 11:19 Social history: Smoking status: Patient reports the use of cigarette tobacco vg1 products, smokes one pack cigarettes per day. vg1
--- NOTE | 2021-11-21 15:05 | EDPHYS ---
Physician Documentation [facility] Name: Fawn Fleming Age: 66 yrs Sex: Female : 1955 Arrival Date: 11/21/2021 Time: 11:05 Bed 17 Private MD: Lele Rahman H ED Physician Joey Jung HPI: 11/21 15:10 This 66 yrs old Female presents to ER via Wheelchair with complaints of Hip Pain, kdr Trouble Walking. 15:10 The patient or guardian reports pain. sustained from unknown reason, This is a chronic kdr ongoing problem. The patient was seen here previously yesterday and numerous times throughout the year. The complaints affect the low back area. Onset: The symptoms/episode began/occurred at an unknown time. Modifying factors: The symptoms are alleviated by nothing, the symptoms are aggravated by any movement. Associated signs and symptoms: Loss of consciousness: the patient experienced no loss of consciousness, Pertinent positives: None. Severity of symptoms: At their worst the symptoms were mild, in the emergency department the symptoms are unchanged. The patient has experienced similar episodes in the past, chronically. The patient has been recently seen by a physician:. Historical: - Allergies: 11:19 Bactrim DS; vg1 11:19 butorphanol tartrate; vg1 11:19 Fentanyl; vg1 11:19 Reglan; vg1 11:19 Stadol; vg1 11:19 sulfamethoxazole (bulk); vg1 11:19 TRIMETHOPRIM; vg1 - PMHx: 11:19 Anxiety; Atrial Fib; Bipolar disorder; Chronic pain; COPD; esophageal varices; vg1 Hepatitis; HIV; Hypertension; Migraines; Panic Attacks; - PSHx: 11:19 Appendectomy; Bilateral shoulder repair; Cholecystectomy; hernia repair; R wrist SX; vg1 - Immunization history:: Client reports receiving the 2nd dose of the Covid vaccine. - Social history:: Smoking status: Patient/guardian denies using tobacco, the patient reports quitting approximately 2 years ago. ROS: 16:02 Constitutional: Negative for fever, chills, and weight loss, Eyes: Negative for injury, kdr pain, redness, and discharge, Neck: Negative for injury, pain, and swelling, Abdomen/GI: Negative for abdominal pain, nausea, vomiting, diarrhea, and constipation, Back: Negative for injury and pain, : Negative for injury, bleeding, discharge, and swelling, MS/Extremity: Negative for injury and deformity, Skin: Negative for injury, rash, and discoloration, Neuro: Negative for headache, weakness, numbness, tingling, and seizure activity. Psych: Negative for depression, anxiety, suicide ideation, homicidal ideation, and hallucinations, Allergy/Immunology: Negative for hives, rash, and allergies, Endocrine: Negative for neck swelling, polydipsia, polyuria, polyphagia, and marked weight changes, Hematologic/Lymphatic: Negative for swollen nodes, abnormal bleeding, and unusual bruising. 16:02 Cardiovascular: Positive for palpitations, Negative for chest pain, edema, orthopnea. 16:02 Respiratory: Positive for shortness of breath, Negative for cough, dyspnea on exertion. Exam: 16:08 Constitutional: This is a well developed, well nourished patient who is awake, alert, kdr and in no acute distress. Head/Face: Normocephalic, atraumatic. Eyes: Pupils equal round and reactive to light, extra-ocular motions intact. Lids and lashes normal. Conjunctiva and sclera are non-icteric and not injected. Cornea within normal limits. Periorbital areas with no swelling, redness, or edema. Neck: Trachea midline, no thyromegaly or masses palpated, and no cervical lymphadenopathy. Supple, full range of motion without nuchal rigidity, or vertebral point tenderness. No Meningismus. Chest/axilla: Normal chest wall appearance and motion. Nontender with no deformity. No lesions are appreciated. Cardiovascular: Regular rate and rhythm with a normal S1 and S2. No gallops, murmurs, or rubs. Normal PMI, no JVD. No pulse deficits. Respiratory: Lungs have equal breath sounds bilaterally, clear to auscultation and percussion. No rales, rhonchi or wheezes noted. No increased work of breathing, no retractions or nasal flaring. Abdomen/GI: Soft, non-tender, with normal bowel sounds. No distension or tympany. No guarding or rebound. No evidence of tenderness throughout. Skin: Warm, dry with normal turgor. Normal color with no rashes, no lesions, and no evidence of cellulitis. MS/ Extremity: Pulses equal, no cyanosis. Neurovascular intact. Full, normal range of motion. Neuro: Awake and alert, GCS 15, oriented to person, place, time, and situation. Cranial nerves II-XII grossly intact. Motor strength 5/5 in all extremities. Sensory grossly intact. Cerebellar exam normal. Normal gait. Psych: Awake, alert, with orientation to person, place and time. Behavior, mood, and affect are within normal limits. 16:08 Back: pain, that is mild, of the low back area, ROM is normal, normal spinal alignment noted, CVA tenderness, is absent, vertebral tenderness, is appreciated at lumbar spine. Vital Signs: 11:16 BP 122 / 76; Pulse 63; Resp 18; Temp 98.7; Pulse Ox 93% on R/A; Weight 81.65 kg; Height vg1 5 ft. 4 in. (162.56 cm); Pain 9/10; 12:15 BP 130 / 79; Pulse 52; Resp 18 S; Pulse Ox 99% on 3 lpm NC; jg9 13:30 BP 134 / 84; Pulse 54; Resp 16; Pulse Ox 98% on 3 lpm NC; ph 15:32 BP 127 / 78; Pulse 54; Resp 18; Pulse Ox 99% on 3 lpm NC; ph 11:16 Body Mass Index 30.90 (81.65 kg, 162.56 cm) vg1 MDM: 15:04 Patient medically screened. kdr 16:08 Data reviewed: vital signs, nurses notes, lab test result(s), radiologic studies. kdr Counseling: I had a detailed discussion with the patient and/or guardian regarding: the historical points, exam findings, and any diagnostic results supporting the discharge/admit diagnosis, lab results, radiology results, the need for outpatient follow up. Administered Medications: 15:18 Not Given (Patient Refused): Ketorolac 15 mg IVP once ph Disposition Summary: 11/21/21 15:04 Discharge Ordered Location: Home kdr Problem: an ongoing problem kdr Symptoms: are unchanged kdr Condition: Stable kdr Diagnosis - Low back pain kdr Followup: kdr - With: Lele Rahman DO - When: 2 - 3 days - Reason: If symptoms return, Further diagnostic work-up, Recheck today's complaints, Continuance of care, Re-evaluation by your physician Discharge Instructions: - Discharge Summary Sheet kdr - Musculoskeletal Pain kdr - Chronic Back Pain, [id number] kdr Forms: - Medication Reconciliation Form kdr - Thank You Letter kdr - Antibiotic Education kdr - Prescription Opioid Use kdr Signatures: Joey Jung MD MD kdr Renae Camarillo RN RN vg1 Solange Bennett RN ph Corrections: (The following items were deleted from the chart) 11:20 11:19 Social history: Smoking status: Patient reports the use of cigarette tobacco vg1 products, smokes one pack cigarettes per day. vg1
[2021-11-21] MEDS ORDERED: KETOROLAC 30 MG/ML INJ ONE (15:11)
[2021-11-21 15:40] VITALS: TEMP 98.7
[2021-11-21 15:48] VITALS: BP 127/78; O2SAT 99
== END 2021-11-21 15:34 | disposition home or self-care (01) ==
LOC: ER 11:03
DX: M54.50 Low back pain, unspecified (principal); I10 Essential (primary) hypertension; Z21 Asymptomatic human immunodeficiency virus [HIV] infection status; Z88.1 Allergy status to other antibiotic agents; Z88.2 Allergy status to sulfonamides; Z88.5 Allergy status to narcotic agent; Z88.8 Allergy status to other drugs, medicaments and biological substances
CPT/HCPCS: 99281

== ENCOUNTER 2021-11-25 13:37 | Emergency (ER) | payer OTHER ==
[2021-11-25 17:24] LABS: Absolute Lymphocytes (CBC) 1.2 K/uL (0.7-4.9); Hematocrit 37.2 % (36.0-45.0); Lymphocytes % 27.1 % (15.3-44.8); MCV 79.7 fL (80-100); MPV 7.3 fL (7.6-11.3); RBC Red Blood Cell Count 4.67 M/uL (3.86-4.86)
[2021-11-25 17:28] LABS: Protime INR 1.1
[2021-11-25 17:45] LABS: Albumin 3.5 g/dL (3.4-5.0); Bilirubin Direct 0.2 mg/dL (0-0.2); Bilirubin Total 0.6 mg/dL (0.2-1.0); Magnesium 1.9 mg/dL (1.8-2.4); Protein, Total 7.5 g/dL (6.4-8.2); Troponin High Sensitivity 19.8 pg/mL (<58.9)
[2021-11-25 17:47] LABS: Potassium 2.8 mmol/L (3.5-5.1)
[2021-11-25] MEDS ORDERED: MORPHINE 4 MG/ML SYR ONE ×2 (17:58→20:52)
[2021-11-25] MEDS ORDERED: HYDRALAZINE HCL 20 MG/ML VIAL ONE (17:58)
[2021-11-25] MEDS ORDERED: LIDOCAINE 4% PATCH ONE (17:58)
--- NOTE | 2021-11-25 18:09 | RAD REPORT ---
EXAM DESCRIPTION: RAD - Chest Single View - 11/25/2021 6:01 pm CLINICAL HISTORY: htn Chest pain. COMPARISON: Chest Single View dated 10/28/2021; Chest Single View dated 10/14/2021; Chest Single View d ated 10/11/2021; Chest Single View dated 10/03/2021 FINDINGS: Portable technique limits examination quality. Mild interstitial pulmonary edema. The heart is moderately enlarged. No displaced fractures.Bilateral shoulder arthroplasties. IMPRESSION: Mild CHF.
[2021-11-25] MEDS ORDERED: POTASSIUM CL SA 10 MEQ TAB PO ONE (18:12)
[2021-11-25] MEDS ORDERED: NS KCL 20MEQ 1,000 ML IV ONE (18:12)
[2021-11-25] MEDS ORDERED: POTASSIUM 25 MEQ EFFERV TAB ONE (20:52)
[2021-11-25] MEDS ORDERED: FUROSEMIDE 40 MG/4 ML VIAL ONE (20:52)
--- NOTE | 2021-11-25 22:01 | ER ---
Nurse's Notes [facility] Name: Fawn Fleming Age: 66 yrs Sex: Female : 1955 Arrival Date: 11/25/2021 Time: 13:38 Bed 17 Private MD: Diagnosis: Low back pain;Hypertensive heart disease with heart failure Presentation: 11/25 13:38 Chief complaint: Patient states: Chronic low back pain and bilateral leg pain that is ss worse today. Pt reports that she was seen at Dr. Rahman's office today and was told to come to the ER for high blood pressure. Coronavirus screen: Client denies travel out of the [place] in the last 14 days. Ebola Screen: Patient denies exposure to infectious person. Patient denies travel to an Ebola-affected area in the 21 days before illness onset. Initial Sepsis Screen: Does the patient meet any 2 criteria? No. Patient's initial sepsis screen is negative. Does the patient have a suspected source of infection? No. Patient's initial sepsis screen is negative. Risk Assessment: Do you want to hurt yourself or someone else? Patient reports no desire to harm self or others. Onset of symptoms was November 23, 2021. 13:38 Method Of Arrival: Ambulatory ss 13:38 Acuity: BLAYNE 2 ss Historical: - Allergies: 13:42 Bactrim DS; ss 13:42 butorphanol tartrate; ss 13:42 Fentanyl; ss 13:42 Reglan; ss 13:42 Stadol; ss 13:42 sulfamethoxazole (bulk); ss 13:42 TRIMETHOPRIM; ss - PMHx: 13:42 Anxiety; Atrial Fib; Bipolar disorder; Chronic pain; COPD; esophageal varices; ss Hepatitis; HIV; Hypertension; Migraines; Panic Attacks; - PSHx: 13:42 Appendectomy; Bilateral shoulder repair; Cholecystectomy; hernia repair; R wrist SX; ss - Immunization history:: Adult Immunizations up to date. - Social history:: Smoking status: Patient denies any tobacco usage or history of. Screenin:18 Abuse screen: Denies threats or abuse. Nutritional screening: No deficits noted. ll1 Tuberculosis screening: No symptoms or risk factors identified. Fall Risk IV access (20 points). Gait- Weak (10 pts.). Total Hauser Fall Scale indicates Low Risk Score (25-44 pts). Fall prevention measures have been instituted. Side Rails Up X 2 Placed close to Nursing Station Frequent Obs/Assesments occuring Family Present and informed to notify staff if they need to leave bedside As available Patient and Family Educated on Fall Prevention Program and strategies. Assessment: 17:17 General: Appears in no apparent distress. Behavior is calm, cooperative, appropriate ll1 for age. Pain: Complains of pain in back Pain currently is 10 out of 10 on a pain scale. Quality of pain is described as aching, throbbing. Neuro: Level of Consciousness is awake, alert, obeys commands, Speech is normal, Facial symmetry appears normal, Reports high BP. Musculoskeletal: Circulation, motion, and sensation intact. Capillary refill < 3 seconds, Reports pain in back. 18:15 Reassessment: No changes from previously documented assessment. Patient and/or family ll1 updated on plan of care and expected duration. Pain level reassessed. Patient is alert, oriented x 3, equal unlabored respirations, skin warm/dry/pink. 19:00 Reassessment: No changes from previously documented assessment. Patient and/or family ll3 updated on plan of care and expected duration. Pain level reassessed. Patient is alert, oriented x 3, equal unlabored respirations, skin warm/dry/pink. 20:57 Reassessment: No changes from previously documented assessment. Patient and/or family ll3 updated on plan of care and expected duration. Pain level reassessed. Patient is alert, oriented x 3, equal unlabored respirations, skin warm/dry/pink. Vital Signs: 13:38 BP 179 / 130; Pulse 61; Resp 16; Temp 97.7(TE); Pulse Ox 96% on R/A; Weight 83.91 kg; ss Height 5 ft. 4 in. (162.56 cm); Pain 10/10; 15:54 BP 218 / 106; Pulse 55; Resp 18; Temp 97.6; Pulse Ox 100% on R/A; Pain 10/10; ld1 16:25 BP 223 / 110; Pulse 57; Resp 18; Pulse Ox 97% on R/A; kr3 16:38 BP 212 / 93; ll1 18:15 BP 187 / 85; Pulse 58; ll1 18:46 BP 180 / 88; Pulse 68; Resp 18; Pulse Ox 97% on R/A; ll1 19:15 BP 183 / 88; Pulse 65; Resp 18; Pulse Ox 98% on R/A; ll3 22:10 BP 166 / 90; Pulse 65; Resp 19; Pulse Ox 96% on R/A; ll3 13:38 Body Mass Index 31.75 (83.91 kg, 162.56 cm) ED Course: 13:38 Patient arrived in ED. rg4 13:42 Triage completed. ss 13:42 Arm band placed on left wrist. ss 16:08 Justus Neil PA is PHCP. cp 16:08 Joey Jung MD is Attending Physician. cp 16:09 Patient placed in an exam room, on a stretcher. ll1 16:17 Sharee Harrell, ASHLEY is Primary Nurse. kr3 17:17 Inserted saline lock: 24 gauge in right hand, using aseptic technique. Blood collected. ll1 17:18 Patient has correct armband on for positive identification. Bed in low position. Call 1 light in reach. Side rails up X 1. Client placed on continuous cardiac and pulse oximetry monitoring. NIBP monitoring applied. 18:03 XRAY Chest (1 view) In Process Unspecified. EDMS Administered Medications: 18:00 Drug: morphine 4 mg {Note: rass 0, pain 10/10.} Route: IVP; Infused Over: 4 mins; Site: ll1 right hand; 18:48 Follow up: Response: No adverse reaction; Pain is unchanged, physician notified; RASS: ll1 Alert and Calm (0) 18:00 Drug: Lidoderm Patch 5 % (700 mg/patch) 1 patches {Note: low back.} Route: Topical; ll1 Site: affected area; 18:49 Follow up: Response: No adverse reaction; RASS: Alert and Calm (0) ll1 18:01 Drug: hydrALAZINE 10 mg Route: IVP; Site: right hand; ll1 18:49 Follow up: Response: No adverse reaction; Blood pressure is lowered; RASS: Alert and ll1 Calm (0) 18:15 Drug: Potassium Chloride 20 mEq Route: IV; Rate: calculated rate; Site: right hand; ll1 20:23 Follow up: IV Status: Completed infusion ke1 18:15 Drug: Potassium Effervescent Tablet 50 mEq Route: PO; ll1 18:49 Follow up: Response: No adverse reaction ll1 19:07 CANCELLED (Physician Discretion): Lasix (furosemide) 40 mg IVP once; give over 2 minutescp 20:50 Drug: Lasix (furosemide) 40 mg Route: IVP; Site: right hand; ll3 20:55 Drug: morphine 4 mg Route: IVP; Infused Over: 4 mins; Site: right hand; ll3 20:55 Drug: Potassium Effervescent Tablet 50 mEq Route: PO; ll3 Medication: 17:18 VIS not applicable for this client. ll1 Outcome: 22:01 Discharge ordered by . nakia 22:21 Patient left the ED. ll3 Signatures: Dispatcher [employer] EDMS Sandra Cadet RN RN ss Page, Corey, PA PA cp Garcia, Rubi rg4 Yanira De Jesus RN RN ll1 Wanda Rust RN RN ld1 Shyann Moore RN RN ll3 Eli Bran RN RN ke1 Sharee Harrell RN RN kr3
--- NOTE | 2021-11-25 22:01 | EDPHYS ---
Physician Documentation [facility] Name: Fawn Fleming Age: 66 yrs Sex: Female : 1955 Arrival Date: 11/25/2021 Time: 13:38 Bed 17 Private MD: ED Physician Joey Jung Historical: - Allergies: 11/25 13:42 Bactrim DS; ss 13:42 butorphanol tartrate; ss 13:42 Fentanyl; ss 13:42 Reglan; ss 13:42 Stadol; ss 13:42 sulfamethoxazole (bulk); ss 13:42 TRIMETHOPRIM; ss - PMHx: 13:42 Anxiety; Atrial Fib; Bipolar disorder; Chronic pain; COPD; esophageal varices; ss Hepatitis; HIV; Hypertension; Migraines; Panic Attacks; - PSHx: 13:42 Appendectomy; Bilateral shoulder repair; Cholecystectomy; hernia repair; R wrist SX; ss - Immunization history:: Adult Immunizations up to date. - Social history:: Smoking status: Patient denies any tobacco usage or history of. Vital Signs: 13:38 BP 179 / 130; Pulse 61; Resp 16; Temp 97.7(TE); Pulse Ox 96% on R/A; Weight 83.91 kg; ss Height 5 ft. 4 in. (162.56 cm); Pain 10/10; 15:54 BP 218 / 106; Pulse 55; Resp 18; Temp 97.6; Pulse Ox 100% on R/A; Pain 10/10; ld1 16:25 BP 223 / 110; Pulse 57; Resp 18; Pulse Ox 97% on R/A; kr3 16:38 BP 212 / 93; ll1 18:15 BP 187 / 85; Pulse 58; ll1 18:46 BP 180 / 88; Pulse 68; Resp 18; Pulse Ox 97% on R/A; ll1 19:15 BP 183 / 88; Pulse 65; Resp 18; Pulse Ox 98% on R/A; ll3 22:10 BP 166 / 90; Pulse 65; Resp 19; Pulse Ox 96% on R/A; ll3 13:38 Body Mass Index 31.75 (83.91 kg, 162.56 cm) MDM: 16:09 Patient medically screened. cp 11/25 16:51 Order name: Basic Metabolic Panel; Complete Time: 17:48 cp 11/25 17:48 Interpretation: Normal except: K 2.8; GFR 63. cp 11/25 16:51 Order name: CBC with Diff; Complete Time: 17:44 cp 11/25 19:07 Interpretation: Normal except: HGB 11.7; MCV 79.7; MCH 25.1; MCHC 31.4; PLT 136; RDW cp 27.0; MPV 7.3. 11/25 16:51 Order name: LFT's; Complete Time: 17:48 cp 11/25 17:48 Interpretation: Normal except: GLOB 4.0; A/G 0.9. cp 11/25 16:51 Order name: Magnesium; Complete Time: 17:48 cp 11/25 16:51 Order name: NT PRO-BNP; Complete Time: 17:48 cp 11/25 16:51 Order name: PT-INR; Complete Time: 17:44 11/25 16:51 Order name: Troponin HS; Complete Time: 17:48 11/25 16:51 Order name: XRAY Chest (1 view); Complete Time: 19:04 cp 11/25 19:05 Interpretation: Report review. 11/25 16:51 Order name: EKG; Complete Time: 16:52 cp 11/25 16:51 Order name: Cardiac monitoring; Complete Time: 17:16 cp 11/25 16:51 Order name: EKG - Nurse/Tech; Complete Time: 17:16 cp 11/25 16:51 Order name: IV Saline Lock; Complete Time: 17:16 cp 11/25 16:51 Order name: Labs collected and sent; Complete Time: 17:16 cp 11/25 16:51 Order name: O2 Per Protocol; Complete Time: 17:16 cp 11/25 16:51 Order name: O2 Sat Monitoring; Complete Time: 17:16 cp Administered Medications: 18:00 Drug: morphine 4 mg {Note: rass 0, pain 10/10.} Route: IVP; Infused Over: 4 mins; Site: ll1 right hand; 18:48 Follow up: Response: No adverse reaction; Pain is unchanged, physician notified; RASS: ll1 Alert and Calm (0) 18:00 Drug: Lidoderm Patch 5 % (700 mg/patch) 1 patches {Note: low back.} Route: Topical; ll1 Site: affected area; 18:49 Follow up: Response: No adverse reaction; RASS: Alert and Calm (0) ll1 18:01 Drug: hydrALAZINE 10 mg Route: IVP; Site: right hand; ll1 18:49 Follow up: Response: No adverse reaction; Blood pressure is lowered; RASS: Alert and ll1 Calm (0) 18:15 Drug: Potassium Chloride 20 mEq Route: IV; Rate: calculated rate; Site: right hand; ll1 20:23 Follow up: IV Status: Completed infusion ke1 18:15 Drug: Potassium Effervescent Tablet 50 mEq Route: PO; ll1 18:49 Follow up: Response: No adverse reaction ll1 19:07 CANCELLED (Physician Discretion): Lasix (furosemide) 40 mg IVP once; give over 2 minutescp 20:50 Drug: Lasix (furosemide) 40 mg Route: IVP; Site: right hand; ll3 20:55 Drug: morphine 4 mg Route: IVP; Infused Over: 4 mins; Site: right hand; ll3 20:55 Drug: Potassium Effervescent Tablet 50 mEq Route: PO; ll3 Disposition Summary: 11/25/21 22:01 Discharge Ordered Location: Home cp Problem: an acute exacerbation cp Symptoms: have improved cp Condition: Stable cp Diagnosis - Low back pain cp - Hypertensive heart disease with heart failure cp Followup: cp - With: Private Physician - When: 1 - 2 days - Reason: Recheck today's complaints Discharge Instructions: - Discharge Summary Sheet cp - Chronic Back Pain cp - Heart Failure, Diagnosis cp - Hypertension, Adult cp - Heat Therapy cp - Back Exercises cp Forms: - Medication Reconciliation Form cp - Thank You Letter cp - Antibiotic Education cp - Prescription Opioid Use cp Prescriptions: - Lidoderm 5 % Topical adhesive patch,medicated - apply 1 patch by TOPICAL route once daily; 20 patch; Refills: 0, Product cp Selection Permitted Signatures: Dispatcher [employer] Sandra Rodriguez RN RN Justus Herrera PA PA cp Yanira De Jesus RN RN ll1 Shyann Moore RN RN ll3 Eli Bran RN ke1 Corrections: (The following items were deleted from the chart) 19:07 19:05 Lasix (furosemide) 40 mg IVP once; give over 2 minutes ordered. cp cp
[2021-11-25] MEDS ORDERED: ONDANSETRON 4 MG/2 ML VIAL ONE (22:20)
[2021-11-25 23:52] VITALS: TEMP 97.6
[2021-11-25 23:59] VITALS: BP 166/90; O2SAT 96
--- NOTE | 2021-11-26 13:53 | EKG ---
Test Date: 2021-11-25 Test Time: 17:22:10 Toy Stuffer: KEILA MEASUREMENT RESULTS: Intervals: Rate: 64 IN: QRSD: 90 QT: 446 QTc: 460 [place]: P: IN: QRS: 58 T: 239 INTERPRETIVE STATEMENTS: Atrial fibrillation Minimal voltage criteria for LVH, may be normal variant ST & T wave abnormality, consider inferior ischemia or digitalis effect ST & T wave abnormality, consider anterolateral ischemia or digitalis effect Abnormal ECG Compared to ECG 11/02/2021 02:24:24 Left ventricular hypertrophy now present ST (T wave) deviation now present Possible ischemia now present Sinus rhythm no longer present First degree AV block no longer present T-wave abnormality no longer present Prolonged QT interval no longer present Electronically Signed On 11-26-21 13:51:02 CDT by Mike Lund
== END 2021-11-25 22:21 | disposition home or self-care (01) ==
LOC: ER 13:37
DX: M54.50 Low back pain, unspecified (principal); I11.0 Hypertensive heart disease with heart failure; I10 Essential (primary) hypertension; J44.9 Chronic obstructive pulmonary disease, unspecified; Z21 Asymptomatic human immunodeficiency virus [HIV] infection status; Z88.1 Allergy status to other antibiotic agents; Z88.2 Allergy status to sulfonamides; Z88.5 Allergy status to narcotic agent; Z88.8 Allergy status to other drugs, medicaments and biological substances
CPT/HCPCS: 85025; 80048; 36415; 83735; 85610; 80076; 84484; 83880; 71045; J0360; J1940; J2001; J2405; J3480; 93005

== ENCOUNTER 2021-12-02 06:26 | Emergency (ER) | payer OTHER ==
--- NOTE | 2021-12-02 07:36 | RAD REPORT ---
EXAM DESCRIPTION: Patrick Single View12/02/2021 6:57 am CLINICAL HISTORY: Shortness of breath COMPARISON: November 25, 2021 FINDINGS: Left base is hazy. Right lung appears clear. Heart remains enlarged IMPRESSION: Left base is hazy. This may represent a combination of small pleural effusion and atelectasis/infiltrate
[2021-12-02 08:31] LABS: Protime INR 1.04
[2021-12-02] MEDS ORDERED: METHYLPREDNISOLONE 125 MG INJ ONE (08:31)
[2021-12-02] MEDS ORDERED: ALBUTEROL 2.5 MG/3 ML NEB SOL ONE (08:32)
[2021-12-02] MEDS ORDERED: MORPHINE 4 MG/ML SYR ONE (08:32)
[2021-12-02] MEDS ORDERED: IPRATROPIUM BROM 0.5MG/2.5ML ONE (08:32)
[2021-12-02] MEDS ORDERED: ONDANSETRON 4 MG/2 ML VIAL ONE (08:32)
[2021-12-02 08:34] LABS: Hematocrit 39.6 % (36.0-45.0); MCV 81.3 fL (80-100); MPV 7.3 fL (7.6-11.3); RBC Red Blood Cell Count 4.87 M/uL (3.86-4.86)
[2021-12-02 08:47] LABS: Albumin 3.4 g/dL (3.4-5.0); Bilirubin Direct 0.2 mg/dL (0-0.2); Bilirubin Total 0.4 mg/dL (0.2-1.0); Magnesium 2.2 mg/dL (1.8-2.4); Potassium 3.4 mmol/L (3.5-5.1); Protein, Total 7.4 g/dL (6.4-8.2)
[2021-12-02 08:49] LABS: Troponin High Sensitivity 13.4 pg/mL (<58.9)
[2021-12-02 09:21] LABS: Anisocytosis 3+; Blood Morphology Comment NOTED (NOT SEEN); Platelet Estimate DECR; White Blood Cell Scan OK (OK)
--- NOTE | 2021-12-02 11:41 | RAD REPORT ---
EXAM DESCRIPTION: CTSpine Lumbar Wo Con12/02/2021 11:25 am CLINICAL HISTORY: Back pain, radiculopathy, trauma COMPARISON: October 2021 MRI TECHNIQUE: Computed axial tomography lumbar spine was obtained with coronal and sagittal reconstruct ion. All CT scans are performed using dose optimization technique as appropriate and may include automated exposure control or mA/KV adjustment according to patient size. FINDINGS: No fracture is seen. No dislocation L1-2, L2-3 and L3-4 are unremarkable. Right lateral disc bulge, ligamentum flavum and facet hypertrophy L4-5. The thecal sac measures 9 mil limeters. L5-S1 unremarkable IMPRESSION: Spondylosis L4-5 resulting in mild central spinal stenosis
--- NOTE | 2021-12-02 11:46 | RAD REPORT ---
EXAM DESCRIPTION: Patrick Saldana And Lat (2 Views)12/02/2021 11:35 am CLINICAL HISTORY: Cough COMPARISON: December 02, 2021 FINDINGS: A few areas of subsegmental atelectasis within the left lung. The right lung appears clear Heart is mildly enlarged.
--- NOTE | 2021-12-02 12:01 | ER ---
Nurse's Notes [facility] Name: Fawn Fleming Age: 66 yrs Sex: Female : 1955 Arrival Date: 12/02/2021 Time: 06:31 Bed 8 Private MD: Diagnosis: COPD/ Chronic obstructive pulmonary disease with (acute) exacerbation;Hypokalemia;Asymptomatic human immunodeficiency virus [HIV] infection status;Cardiomegaly;Fall on same level, unspecified;Low back pain;Chest pain, unspecified Presentation: 12/02 06:31 Chief complaint: EMS states: Pt wok up this morning with difficulty breathing and chest kd3 tightness. 12 lead showed no abnormalities. 324 of aspirin, nitro and 1 albuterol treatment was administered. pt initial sat was 91 on room air, now its 93%. Pt also complained of a headache and had an initial blood pressure of 190/100. blood pressure on arrival is 171/92 and the headache has resolved. Coronavirus screen: Vaccine status: Patient reports receiving the 2nd dose of the covid vaccine. Ebola Screen: No symptoms or risks identified at this time. Initial Sepsis Screen: Does the patient meet any 2 criteria? No. Patient's initial sepsis screen is negative. Does the patient have a suspected source of infection? No. Patient's initial sepsis screen is negative. Risk Assessment: Do you want to hurt yourself or someone else? Patient reports no desire to harm self or others. Onset of symptoms was December 02, 2021. 06:31 Method Of Arrival: EMS: [facility] kd3 06:31 Acuity: BLAYNE 3 kd3 Triage Assessment: 06:36 General: Appears uncomfortable, Behavior is cooperative. Pain: Complains of pain in kd3 chest. Historical: - Allergies: 06:36 Bactrim DS; kd3 06:36 butorphanol tartrate; kd3 06:36 Fentanyl; kd3 06:36 Reglan; kd3 06:36 Stadol; kd3 06:36 TRIMETHOPRIM; kd3 06:36 sulfamethoxazole (bulk); kd3 - PMHx: 06:36 Anxiety; Atrial Fib; Bipolar disorder; Chronic pain; COPD; esophageal varices; kd3 Hepatitis; HIV; Hypertension; Migraines; Panic Attacks; - PSHx: 06:36 Appendectomy; Bilateral shoulder repair; hernia repair; R wrist SX; Cholecystectomy; kd3 - Immunization history:: Adult Immunizations up to date. - Social history:: Smoking status: unknown. Screenin:38 Abuse screen: Denies threats or abuse. Denies injuries from another. Nutritional kd3 screening: No deficits noted. Tuberculosis screening: No symptoms or risk factors identified. Fall Risk None identified. Assessment: 07:45 Reassessment: PT states, "I'm here for the same thing I was here for yesterday. My legs ss hurt." After being asked, patient also c/o chest pain that has been ongoing intermittently for months. 07:59 Neuro: Gonzalez Agitation-Sedation Scale (RASS): -1 Drowsy. ss 08:33 Reassessment: Pt was initially drowsy. Is more awake/ alert RASS 0. ss 09:26 Reassessment: Patient appears in no apparent distress at this time. Patient and/or ss family updated on plan of care and expected duration. Pain level reassessed. Patient is alert, oriented x 3, equal unlabored respirations, skin warm/dry/pink. Patient states feeling better. Patient states symptoms have improved. 12:03 Reassessment: RASS 0. ss 13:05 Reassessment: Patient appears in no apparent distress at this time. Patient and/or ha1 family updated on plan of care and expected duration. Pain level reassessed. Patient states feeling better. Vital Signs: 06:31 BP 171 / 92; Pulse 51; Resp 19; Temp 98.2; Pulse Ox 98% on R/A; Weight 83.91 kg; Height kd3 5 ft. 4 in. (162.56 cm); 06:51 BP 171 / 92; Pulse 53; Resp 16 S; Pulse Ox 100% on R/A; as6 09:26 BP 167 / 98; Pulse 53; Resp 16; Pulse Ox 94% on R/A; ss 12:01 BP 172 / 94; Pulse 58; Resp 16; Pulse Ox 100% on R/A; Pain 9/10; ss 06:31 Body Mass Index 31.75 (83.91 kg, 162.56 cm) kd3 ED Course: 06:31 Patient arrived in ED. kd3 06:36 Triage completed. kd3 06:36 Arm band placed on right wrist. kd3 06:38 Patient has correct armband on for positive identification. kd3 06:38 No provider procedures requiring assistance completed. kd3 06:40 Prem Garcia MD is Attending Physician. mh7 06:49 Dayo Ko RN is Primary Nurse. as6 06:59 XRAY Chest (1 view) In Process Unspecified. EDMS 07:11 Primary Nurse role handed off by Dayo Ko RN jd3 07:11 Gerard Boston RN is Primary Nurse. jd3 07:17 Attending Physician role handed off by Prem Garcia MD thomas 07:17 Justus Kolb MD is Attending Physician. thomas 07:27 COVID-19 SARS RT PCR (Document "Date of Onset" if Symptomatic) Sent. oj 07:27 Influenza Screen (a \\T\\ B) Sent. oj 07:59 Missed attempt(s): 24 gauge in left hand. Bleeding controlled, band aid applied, ss catheter tip intact. 08:19 Inserted saline lock: 24 gauge in right hand, using aseptic technique. Blood collected. ss 11:16 Troponin High Sensitivity Sent. kc6 11:26 CT Lumbar Spine Wo Con In Process Unspecified. EDMS 11:37 Chest Pa And Lat (2 Views) XRAY In Process Unspecified. EDMS 11:47 Sandra Cadet, ASHLEY is Primary Nurse. ss 11:58 Moody Sosa MD is Referral Physician. thomas 11:58 Per Crane MD is Referral Physician. thomas 13:05 IV discontinued, intact, bleeding controlled, No redness/swelling at site. Pressure ha1 dressing applied. Administered Medications: 08:30 Drug: Zofran (Ondansetron) 4 mg Route: IVP; Site: right hand; ss 08:32 Drug: SOLU-Medrol (methylPrednisoLONE) 125 mg Route: IVP; Site: right antecubital; ss 08:34 Drug: Albuterol - atroVENT (ipratropium) (3:1) (2.5 mg - 0.5 mg) 3 ml Route: Nebulizer; ss 12:29 Follow up: Response: No adverse reaction; No adverse reaction, wheezing decreased ha1 08:34 Drug: morphine 4 mg Route: IVP; Infused Over: 4 mins; Site: right hand; ss 08:35 Follow up: Response: RASS: Alert and Calm (0) ss 11:48 Not Given (EMS administered ): Aspirin Chewable Tablet 81 mg PO once ss 11:49 Not Given (PT denies nauseaa): Zofran (Ondansetron) 4 mg IVP once; over 2 minutes ss 12:00 Drug: PlaVIX (clopidogrel) 75 mg Route: PO; ha1 12:29 Follow up: Response: No adverse reaction ha1 12:04 Drug: Xopenex (levalbuterol) 2.5 mg Route: Inhalation; ha1 12:05 Drug: morphine 2 mg {Note: RASS 0.} Route: IVP; Infused Over: 4 mins; Site: right ha antecubital; 12:29 Follow up: Response: No adverse reaction; RASS: Alert and Calm (0) ha1 13:05 Not Given (Physician Discretion): morphine 2 mg IVP once over 4 mins ha1 Medication: 06:38 VIS not applicable for this client. kd3 Outcome: 12:01 Discharge ordered by MD. guzman 13:05 Discharged to home ambulatory. 1 13:05 Condition: good 13:05 Discharge instructions given to patient, PT is awaiting to pick her up from ER [facility] Instructed on discharge instructions, follow up and referral plans. medication usage, Demonstrated understanding of instructions, follow-up care, medications. 13:05 Patient left the ED. 1 Signatures: Dispatcher [employer] EDMS Justus Kolb MD MD cha Smirch, Shelby, RN RN ss Davies, Jonathon, RN RN jd3 Holmes, Maurice, MD MD mh7 Slawson, Ashby, RN RN as6 Shereen Marinelli RN RN kd3 Ludivina Ramires RN RN ha1 [place] 6 Diane Frias Corrections: (The following items were deleted from the chart) 09:27 09:26 BP 167 / 98; Pulse 53bpm; Resp 6bpm; Pulse Ox 94% RA; ss ss
--- NOTE | 2021-12-02 12:01 | EDPHYS ---
Physician Documentation [facility] Name: Fawn Fleming Age: 66 yrs Sex: Female : 1955 Arrival Date: 12/02/2021 Time: 06:31 Bed 8 Private MD: ED Physician Justus Kolb HPI: 12/02 06:49 This 66 yrs old Female presents to ER via EMS with complaints of Shortness of breath. mh7 06:49 The patient has shortness of breath at rest. Onset: The symptoms/episode began/occurred mh7 last night. Duration: The symptoms are continuous, and are steadily getting worse. The patient's shortness of breath is aggravated by coughing, is alleviated by nothing. Associated signs and symptoms: Pertinent positives: chest pain, non-productive cough, Pertinent negatives: diaphoresis, dizziness, fever, hemoptysis, loss of consciousness, nausea, numbness in extremities, visual changes, vomiting. Severity of symptoms: At their worst the symptoms were moderate today, in the emergency department the symptoms have improved moderately. Historical: - Allergies: 06:36 Bactrim DS; kd3 06:36 butorphanol tartrate; kd3 06:36 Fentanyl; kd3 06:36 Reglan; kd3 06:36 Stadol; kd3 06:36 TRIMETHOPRIM; kd3 06:36 sulfamethoxazole (bulk); kd3 - PMHx: 06:36 Anxiety; Atrial Fib; Bipolar disorder; Chronic pain; COPD; esophageal varices; kd3 Hepatitis; HIV; Hypertension; Migraines; Panic Attacks; - PSHx: 06:36 Appendectomy; Bilateral shoulder repair; hernia repair; R wrist SX; Cholecystectomy; kd3 - Immunization history:: Adult Immunizations up to date. - Social history:: Smoking status: unknown. ROS: 06:49 Constitutional: Negative for fever, chills, and weight loss, Eyes: Negative for injury, mh7 pain, redness, and discharge, ENT: Negative for injury, pain, and discharge, Neck: Negative for injury, pain, and swelling, Abdomen/GI: Negative for abdominal pain, nausea, vomiting, diarrhea, and constipation, Back: Negative for injury and pain, : Negative for injury, bleeding, discharge, and swelling, MS/Extremity: Negative for injury and deformity, Skin: Negative for injury, rash, and discoloration, Neuro: Negative for headache, weakness, numbness, tingling, and seizure, Psych: Negative for depression, anxiety, suicide ideation, homicidal ideation, and hallucinations, Allergy/Immunology: Negative for hives, rash, and allergies, Endocrine: Negative for neck swelling, polydipsia, polyuria, polyphagia, and marked weight changes, Hematologic/Lymphatic: Negative for swollen nodes, abnormal bleeding, and unusual bruising. Exam: 06:49 Head/Face: Normocephalic, atraumatic. Eyes: Pupils equal round and reactive to light, mh7 extra-ocular motions intact. Lids and lashes normal. Conjunctiva and sclera are non-icteric and not injected. Cornea within normal limits. Periorbital areas with no swelling, redness, or edema. Neck: Trachea midline, no thyromegaly or masses palpated, and no cervical lymphadenopathy. Supple, full range of motion without nuchal rigidity, or vertebral point tenderness. No Meningismus. Chest/axilla: Normal chest wall appearance and motion. Nontender with no deformity. No lesions are appreciated. 06:49 Abdomen/GI: Soft, non-tender, with normal bowel sounds. No distension or tympany. No guarding or rebound. No evidence of tenderness throughout. Back: No spinal tenderness. No costovertebral tenderness. Full range of motion. Skin: Warm, dry with normal turgor. Normal color with no rashes, no lesions, and no evidence of cellulitis. MS/ Extremity: Pulses equal, no cyanosis. Neurovascular intact. Full, normal range of motion. Neuro: Awake and alert, GCS 15, oriented to person, place, time, and situation. Cranial nerves II-XII grossly intact. Motor strength 5/5 in all extremities. Sensory grossly intact. Cerebellar exam normal. Normal gait. Psych: Awake, alert, with orientation to person, place and time. Behavior, mood, and affect are within normal limits. 06:49 Constitutional: The patient appears alert, awake, uncomfortable. 06:49 Cardiovascular: Rate: bradycardic, Rhythm: regular, Pulses: no pulse deficits are appreciated, Heart sounds: normal, normal S1and S2, Edema: is not appreciated, JVD: is not appreciated. 06:49 Respiratory: mild respiratory distress is noted, Respirations: prolonged exhalation, that is mild, Breath sounds: rhonchi, that are moderate, are heard diffusely, wheezing: expiratory that is mild, is heard diffusely. 11:56 ECG was reviewed by the Attending Physician. [facility] 12:20 ECG was reviewed by the Attending Physician. [facility] Vital Signs: 06:31 BP 171 / 92; Pulse 51; Resp 19; Temp 98.2; Pulse Ox 98% on R/A; Weight 83.91 kg; Height kd3 5 ft. 4 in. (162.56 cm); 06:51 BP 171 / 92; Pulse 53; Resp 16 S; Pulse Ox 100% on R/A; as6 09:26 BP 167 / 98; Pulse 53; Resp 16; Pulse Ox 94% on R/A; ss 12:01 BP 172 / 94; Pulse 58; Resp 16; Pulse Ox 100% on R/A; Pain 9/10; ss 06:31 Body Mass Index 31.75 (83.91 kg, 162.56 cm) kd3 MDM: 07:20 Patient medically screened. [facility] 12:19 Differential diagnosis: asthma, Bronchitis CHF exacerbation, Chronic Obstructive thomas Pulmonary Disease Myocardial Infarction pneumonia, pulmonary edema, reactive airway disease, Unstable Angina. Antibiotic administration: Not indicated. The patient's Wells Deep Vein Thrombosis Score was calculated as follows: Total Score: 0-2 Pts- Low Risk. The patient's pulmonary embolism risk score was calculated as follows: Total Score: 3-6 points. This patient was found to be at moderate risk for a pulmonary embolism by using the Well's assessment criteria. Immunization status: Pneumococcal vaccine: Influenza vaccine: Data reviewed: vital signs, nurses notes, lab test result(s), EKG, radiologic studies. 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 Test interpretation: by ED physician or midlevel provider: ECG, plain radiologic studies. 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 12/02 06:47 Order name: Basic Metabolic Panel; Complete Time: 10:53 mh7 12/02 06:47 Order name: CBC with Diff; Complete Time: 10:53 mh7 07/13 06:47 Order name: LFT's; Complete Time: 10:53 [facility] 12/02 06:47 Order name: Magnesium; Complete Time: 10:53 [facility] 12/02 06:47 Order name: NT PRO-BNP; Complete Time: 10:53 [facility] 12/02 06:47 Order name: PT-INR; Complete Time: 10:53 [facility] 12/02 06:47 Order name: Troponin HS; Complete Time: 10:53 [facility] 12/02 06:47 Order name: XRAY Chest (1 view); Complete Time: 10:53 [facility] 12/02 06:47 Order name: COVID-19 SARS RT PCR (Document "Date of Onset" if Symptomatic); Complete Time: 10:12/02 06:47 Order name: Influenza Screen (a \\T\\ B); Complete Time: 10:53 [facility] 12/02 08:38 Order name: CBC Smear Scan; Complete Time: 10:53 EDMS 12/02 11:01 Order name: CT Lumbar Spine Wo Con; Complete Time: 11:52 [facility] 12/02 11:01 Order name: Troponin High Sensitivity; Complete Time: 11:52 [facility] 12/02 11:17 Order name: Chest Pa And Lat (2 Views) XRAY; Complete Time: 11:52 [facility] 12/02 06:47 Order name: EKG; Complete Time: 06:48 [facility] 12/02 06:47 Order name: Cardiac monitoring; Complete Time: 06:56 [facility] 12/02 06:47 Order name: EKG - Nurse/Tech; Complete Time: 07:59 [facility] 12/02 06:47 Order name: IV Saline Lock; Complete Time: 08:36 [facility] 12/02 06:47 Order name: Labs collected and sent; Complete Time: 07:59 [facility] 12/02 11:02 Order name: EKG; Complete Time: 11:02 [facility] 12/02 06:47 Order name: O2 Per Protocol; Complete Time: 06:56 [facility] 12/02 06:47 Order name: O2 Sat Monitoring; Complete Time: 06:56 [facility] 12/02 11:02 Order name: EKG - Nurse/Tech; Complete Time: 12:13 [facility] EC:56 Rate is 53 beats/min. Rhythm is regular. QRS Alexander is Normal. NC interval is normal. QRS thomas interval is normal. QT interval is normal. No Q waves. T waves are Normal. ST Segment is depressed in leads II, III, aVF, V1, V2, V3, V4, V5, V6. Clinical impression: Abnormal EKG without significant change and Sinus bradycardia. Interpreted by me. Reviewed by me. 12:20 Rate is 56 beats/min. Rhythm is regular. QRS Alexander is Normal. NC interval is normal. QRS thomas interval is normal. QT interval is normal. No Q waves. T waves are Normal. No ST changes noted. Clinical impression: Abnormal EKG without significant change, Sinus bradycardia, and No evidence of ischemia. Interpreted by me. Reviewed by me. Administered Medications: 08:30 Drug: Zofran (Ondansetron) 4 mg Route: IVP; Site: right hand; ss 08:32 Drug: SOLU-Medrol (methylPrednisoLONE) 125 mg Route: IVP; Site: right antecubital; ss 08:34 Drug: Albuterol - atroVENT (ipratropium) (3:1) (2.5 mg - 0.5 mg) 3 ml Route: Nebulizer; ss 12:29 Follow up: Response: No adverse reaction; No adverse reaction, wheezing decreased ha1 08:34 Drug: morphine 4 mg Route: IVP; Infused Over: 4 mins; Site: right hand; ss 08:35 Follow up: Response: RASS: Alert and Calm (0) ss 11:48 Not Given (EMS administered ): Aspirin Chewable Tablet 81 mg PO once ss 11:49 Not Given (PT denies nauseaa): Zofran (Ondansetron) 4 mg IVP once; over 2 minutes ss 12:00 Drug: PlaVIX (clopidogrel) 75 mg Route: PO; ha1 12:29 Follow up: Response: No adverse reaction ha1 12:04 Drug: Xopenex (levalbuterol) 2.5 mg Route: Inhalation; ha1 12:05 Drug: morphine 2 mg {Note: RASS 0.} Route: IVP; Infused Over: 4 mins; Site: right ha1 antecubital; 12:29 Follow up: Response: No adverse reaction; RASS: Alert and Calm (0) ha1 13:05 Not Given (Physician Discretion): morphine 2 mg IVP once over 4 mins ha1 Disposition Summary: 12/02/21 12:01 Discharge Ordered Location: Home thomas Problem: new thomas Symptoms: have improved thomas Condition: Fair thomas Diagnosis - COPD/ Chronic obstructive pulmonary disease with (acute) exacerbation thomas - Hypokalemia thomas - Asymptomatic human immunodeficiency virus [HIV] infection status thomas - Cardiomegaly thomas - Fall on same level, unspecified thomas - Low back pain thomas - Chest pain, unspecified thomas Followup: thomas - With: Private Physician - When: 48 Hours - Reason: Recheck today's complaints, Continuance of care, Re-evaluation by your physician Followup: thomas - With: Moody Sosa MD - When: 1 - 2 days - Reason: Recheck today's complaints, Continuance of care, Re-evaluation by your physician Followup: thomas - With: Per Crane MD - When: 1 - 2 days - Reason: Recheck today's complaints, Re-evaluation by your physician Discharge Instructions: - Discharge Summary Sheet thomas - Acute Back Pain, Adult thomas - Nonspecific Chest Pain, Adult thomas - Musculoskeletal Pain thomas - Nonspecific Chest Pain, Adult, Dren-ly-Pxle thomas - Chronic Back Pain, Lzzg-ms-Sxbl thomas - Aspirin and Your Heart thomas - Hypokalemia thomas Forms: - Medication Reconciliation Form thomas - Thank You Letter thomas - Antibiotic Education thomas - Prescription Opioid Use thomas Prescriptions: - Plavix 75 mg Oral Tablet - take 1 tablet by ORAL route once daily; 30 tablet; Refills: 0, Product thomas Selection Permitted - Albuterol Sulfate 2.5 mg /3 mL (0.083 %) Inhalation Solution for Nebulization - inhale 1 unit by NEBULIZATION route every 8 hours As needed; 1 box; Refills: 0, [facility] Product Selection Permitted - Prednisone 20 mg Oral Tablet - take 2 tablets by ORAL route once daily for 5 days; 10 tablet; Refills: 0, [facility] Product Selection Permitted - albuterol sulfate 90 mcg/actuation Inhalation HFA aerosol inhaler - inhale 2 puff by INHALATION route every 6 hours; 1 Pump; Refills: 0, Product [facility] Selection Permitted Signatures: Dispatcher [employer] Justus Long MD MD cha Smirch, Shelby, RN RN ss Prem Garcia MD MD mh7 Shereen Marinelli RN RN kd3 Ludivina Ramires RN RN ha1
[2021-12-02] MEDS ORDERED: MORPHINE 2 MG/ML SYR ONE (12:03)
[2021-12-02] MEDS ORDERED: CLOPIDOGREL 75 MG TABLET ONE (12:03)
[2021-12-02] MEDS ORDERED: LEVALBUTEROL 1.25 MG/3 ML NEB ONE (12:04)
[2021-12-02 13:14] VITALS: TEMP 98.2
[2021-12-02 13:19] VITALS: BP 172/94; O2SAT 100
--- NOTE | 2021-12-03 13:07 | EKG ---
Test Date: 2021-12-02 Test Time: 12:16:42 Pmo Manager: LISBET MEASUREMENT RESULTS: Intervals: Rate: 56 SC: 182 QRSD: 90 QT: 476 QTc: 459 [place]: P: 65 SC: 182 QRS: 21 T: 20 INTERPRETIVE STATEMENTS: Sinus bradycardia with premature atrial complexes Moderate voltage criteria for LVH, may be normal variant T wave abnormality, consider inferior ischemia T wave abnormality, consider anterior ischemia Abnormal ECG Compared to ECG 12/02/2021 07:58:52 Atrial premature complex(es) now present Left ventricular hypertrophy now present T-wave abnormality now present ST (T wave) deviation no longer present Possible ischemia still present Electronically Signed On 12-03-21 13:04:48 CDT by Mike Lund
--- NOTE | 2021-12-03 13:08 | EKG ---
Test Date: 2021-12-02 Test Time: 07:58:52 Calender Runner: EDUARDO MEASUREMENT RESULTS: Intervals: Rate: 53 HI: 190 QRSD: 82 QT: 496 QTc: 465 [place]: P: 28 HI: 190 QRS: 41 T: -37 INTERPRETIVE STATEMENTS: Sinus bradycardia ST & T wave abnormality, consider anterolateral ischemia Abnormal ECG Compared to ECG 11/25/2021 17:22:10 Atrial fibrillation no longer present Left ventricular hypertrophy no longer present ST (T wave) deviation still present Possible ischemia still present Electronically Signed On 12-03-21 13:06:46 CDT by Mike Lund
== END 2021-12-02 13:05 | disposition home or self-care (01) ==
LOC: ER 06:26
DX: J44.1 Chronic obstructive pulmonary disease with (acute) exacerbation (principal); E87.6 Hypokalemia; R07.9 Chest pain, unspecified; Z71.7 Human immunodeficiency virus [HIV] counseling; I51.7 Cardiomegaly; M54.50 Low back pain, unspecified; W18.30XA Fall on same level, unspecified, initial encounter; Z20.822 Contact with and (suspected) exposure to COVID-19; I10 Essential (primary) hypertension; F31.9 Bipolar disorder, unspecified; Z88.1 Allergy status to other antibiotic agents; Z88.2 Allergy status to sulfonamides; Z88.5 Allergy status to narcotic agent; Z88.8 Allergy status to other drugs, medicaments and biological substances
CPT/HCPCS: 85025; 80048; 36415; 83735; 85610; 80076; 84484 ×2; 83880; 87804 ×2; 72131; 71045; 71046; U0003; J2270; J2930; J2405; 93005

== ENCOUNTER 2021-12-03 12:21 | Emergency (ER) | payer OTHER ==
[2021-12-03] MEDS ORDERED: LIDOCAINE 4% PATCH ONE (13:24)
--- NOTE | 2021-12-03 13:52 | RAD REPORT ---
EXAM DESCRIPTION: CT - Head Brain Wo Cont - 12/03/2021 1:45 pm CLINICAL HISTORY: Headache, new or worsening Headache, drowsiness COMPARISON: Head Brain Wo Cont dated 10/26/2021; Head Brain Wo Cont dated 10/11/2021 TECHNIQUE: All CT scans are performed using dose optimization technique as appropriate and may inclu de automated exposure control or mA/KV adjustment according to patient size. FINDINGS: No intracranial hemorrhage, hydrocephalus or extra-axial fluid collection.Moderate periven tricular chronic microvascular ischemic changes.No areas of brain edema or evidence of midline shift. The paranasal sinuses and mastoids are clear. The calvarium is intact. IMPRESSION: No acute intracranial abnormality.
--- NOTE | 2021-12-03 14:16 | RAD REPORT ---
EXAM DESCRIPTION: RAD - Hip Left 2 View - 12/03/2021 2:02 pm CLINICAL HISTORY: PAIN COMPARISON: No comparisons FINDINGS: Mild arthritic changes affect the left hip. No fracture, dislocation or AVN pattern.
--- NOTE | 2021-12-03 14:45 | EDPHYS ---
Physician Documentation [facility] Name: Fawn Fleming Age: 66 yrs Sex: Female : 1955 Arrival Date: 12/03/2021 Time: 12:23 Bed 10 Private MD: ED Physician Butch Yeung HPI: 12/03 13:09 This 66 yrs old Female presents to ER via EMS with complaints of Fall Injury. pm1 13:09 Details of fall: The patient fell from an upright position, while standing. Onset: The pm1 symptoms/episode began/occurred just prior to arrival. Associated injuries: The patient sustained injury to the head, pain, left ear and left hip, painful injury. Severity of symptoms: in the emergency department the symptoms are unchanged. The patient has not experienced similar symptoms in the past. The patient has not recently seen a physician. Patient reports she was in the bathroom and fell resulting in her holding herself up against the bathroom towel bar with her left side of her head, left ear and her right hand. Patient eventually let go in landed on her left hip. Patient reports headache to her left side and right side of her head. Left ear and left hip. Patient able to walk post fall injury. Historical: - Allergies: 12:30 Bactrim DS; ld1 12:30 butorphanol tartrate; ld1 12:30 Fentanyl; ld1 12:30 Reglan; ld1 12:30 Stadol; ld1 12:30 sulfamethoxazole (bulk); ld1 12:30 TRIMETHOPRIM; ld1 - PMHx: 12:30 Atrial Fib; Anxiety; Bipolar disorder; Chronic pain; COPD; esophageal varices; ld1 Hepatitis; HIV; Hypertension; Migraines; Panic Attacks; - PSHx: 12:30 Appendectomy; Bilateral shoulder repair; Cholecystectomy; hernia repair; R wrist SX; ld1 - Immunization history:: Adult Immunizations up to date, Client reports receiving the 2nd dose of the Covid vaccine. - Social history:: Smoking status: Patient/guardian denies using tobacco, the patient reports quitting approximately 2 years ago, Patient/guardian denies using alcohol. ROS: 13:09 Constitutional: Negative for fever, chills, and weight loss, Neck: Negative for injury, pm1 pain, and swelling, Cardiovascular: Negative for chest pain, palpitations, and edema, Respiratory: Negative for shortness of breath, cough, wheezing, and pleuritic chest pain. 13:09 Abdomen/GI: Negative for abdominal pain, nausea, vomiting, diarrhea, and constipation. 13:09 Skin: Negative for injury, rash, and discoloration. 13:09 ENT: Positive for ear pain. 13:09 MS/extremity: Positive for pain, of the left hip, Negative for decreased range of motion, deformity. 13:09 Neuro: Positive for headache, Negative for numbness, tingling, weakness. 13:09 All other systems are negative. Exam: 13:09 Constitutional: This is a well developed, well nourished patient who is awake, alert, pm1 and in no acute distress. Head/Face: Normocephalic, atraumatic. 13:09 Chest/axilla: Normal chest wall appearance and motion. Nontender with no deformity. No lesions are appreciated. 13:09 Back: No spinal tenderness. No costovertebral tenderness. Full range of motion. Skin: Warm, dry with normal turgor. Normal color with no rashes, no lesions, and no evidence of cellulitis. 13:09 ENT: External ear(s): are unremarkable, Ear canal(s): no acute changes, TM's: no acute changes. 13:09 Neck: Exam negative for acute changes, External neck: no acute changes, ROM/movement: no acute changes, pain, is not appreciated. 13:09 Cardiovascular: Exam negative for acute changes, Rate: bradycardic, Rhythm: regular, Pulses: no pulse deficits are appreciated. 13:09 Respiratory: Exam negative for acute changes, respiratory distress, shortness of breath, Breath sounds: are clear throughout. 13:09 Abdomen/GI: Inspection: abdomen appears normal, Palpation: abdomen is soft and non-tender, in all quadrants. 13:09 Musculoskeletal/extremity: Extremities: grossly normal except: noted in the left hip: tenderness, There is no evidence of decreased ROM, deformity. 13:09 Neuro: Exam negative for acute changes, Orientation: is normal, Mentation: is normal, Motor: is normal, moves all fours. Vital Signs: 12:27 Pulse 55; Resp 18; Temp 98.3(O); Pulse Ox 94% on R/A; Weight 83.46 kg; Height 5 ft. 5 ld1 in. (165.10 cm); Pain 10/10; 14:03 BP 155 / 84; Pulse 54; Resp 18 S; Temp 98.0; Pulse Ox 93% on R/A; iw 12:27 Body Mass Index 30.62 (83.46 kg, 165.10 cm) ld1 MDM: 12:26 Patient medically screened. pm1 13:09 ED course: Informed the patient that I will not be able to give her any narcotic pm1 medications for her current presentation of symptoms. Will get imaging to evaluate her headache and left hip pain. Patient reports medications such as NSAIDs, Toradol are ineffective for her pain. 14:39 Data reviewed: vital signs. Data interpreted: Pulse oximetry: on room air is 93 %. pm1 Interpretation: COPD history. Patient without any complaints of shortness of breath. Counseling: I had a detailed discussion with the patient and/or guardian regarding: the historical points, exam findings, and any diagnostic results supporting the discharge/admit diagnosis, radiology results, the need for outpatient follow up, to return to the emergency department if symptoms worsen or persist or if there are any questions or concerns that arise at home. 14:53 ED course: Non narcotic management multimodal pain therapy recommended . [email or web address] 12/03 13:08 Order name: Hip Left 2 View XRAY; Complete Time: 14:32 pm1 12/03 13:08 Order name: CT Head Brain wo Cont; Complete Time: 14:32 pm1 Administered Medications: 13:20 Drug: Lidoderm Patch 5 % (700 mg/patch) 1 patches Route: Topical; Site: affected area; ld1 Disposition: 14:54 Co-signature as Attending Physician, Austin Raza NP. [email or web address] Disposition Summary: 12/03/21 14:44 Discharge Ordered Location: Home pm1 Problem: new pm1 Symptoms: are unchanged pm1 Condition: Stable pm1 Diagnosis - Contusion of left hip pm1 - Unspecified superficial injury of other part of head, initial encounter pm1 - Fall on same level, unspecified pm1 Followup: pm1 - With: Emergency Department - When: As needed - Reason: Worsening of condition Followup: pm1 - With: Private Physician - When: 2 - 3 days - Reason: Recheck today's complaints, Continuance of care, Re-evaluation by your physician Discharge Instructions: - Discharge Summary Sheet pm1 - Contusion pm1 - Fall Prevention in the Home, Adult pm1 - Head Injury, Adult pm1 Forms: - Medication Reconciliation Form pm1 - Thank You Letter pm1 - Antibiotic Education pm1 - Prescription Opioid Use pm1 Signatures: Dispatcher [employer] EDAustin Smith, TIMBO TYPECASTING MACHINE OPERATOR pm1 Wanda Rust, ASHLEY RN ld1 Butch Yeung MD MD [email or web address]
--- NOTE | 2021-12-03 14:45 | ER ---
Nurse's Notes [facility] Name: Fawn Fleming Age: 66 yrs Sex: Female : 1955 Arrival Date: 12/03/2021 Time: 12:23 Bed 10 Private MD: Diagnosis: Contusion of left hip;Unspecified superficial injury of other part of head, initial encounter;Fall on same level, unspecified Presentation: 12/03 12:27 Chief complaint: EMS states: Toned out for fall - pt reports hitting head - negative ld1 LOC - not on blood thinners. Pt denies pain in head. Reporting pain in left ear - left buttocks. Coronavirus screen: At this time, the client does not indicate any symptoms associated with coronavirus-19. Ebola Screen: No symptoms or risks identified at this time. Initial Sepsis Screen: Does the patient meet any 2 criteria? No. Patient's initial sepsis screen is negative. Does the patient have a suspected source of infection? No. Patient's initial sepsis screen is negative. Risk Assessment: Do you want to hurt yourself or someone else? Patient reports no desire to harm self or others. Onset of symptoms was December 03, 2021. 12:27 Method Of Arrival: EMS: Busy EMS ld1 12:27 Acuity: BLAYNE 3 ld1 Triage Assessment: 12:30 General: Appears in no apparent distress. comfortable, Behavior is calm, cooperative, ld1 appropriate for age. Pain: Complains of pain in left ear and buttocks. 12:30 Pain: Pain does not radiate. Pain currently is 10 out of 10 on a pain scale. Quality of ld1 pain is described as aching, throbbing. EENT: No signs and/or symptoms were reported regarding the EENT system. Neuro: Level of Consciousness is awake, alert, obeys commands, Oriented to person, place, time, situation, Appropriate for age. Cardiovascular: Capillary refill < 3 seconds Patient's skin is warm and dry. Respiratory: Airway is patent Respiratory effort is even, unlabored. GI: Abdomen is round non-distended. : No signs and/or symptoms were reported regarding the genitourinary system. Derm: No signs and/or symptoms reported regarding the dermatologic system. Musculoskeletal: Reports pain in buttocks. Historical: - Allergies: 12:30 Bactrim DS; ld1 12:30 butorphanol tartrate; ld1 12:30 Fentanyl; ld1 12:30 Reglan; ld1 12:30 Stadol; ld1 12:30 sulfamethoxazole (bulk); ld1 12:30 TRIMETHOPRIM; ld1 - PMHx: 12:30 Atrial Fib; Anxiety; Bipolar disorder; Chronic pain; COPD; esophageal varices; ld1 Hepatitis; HIV; Hypertension; Migraines; Panic Attacks; - PSHx: 12:30 Appendectomy; Bilateral shoulder repair; Cholecystectomy; hernia repair; R wrist SX; ld1 - Immunization history:: Adult Immunizations up to date, Client reports receiving the 2nd dose of the Covid vaccine. - Social history:: Smoking status: Patient/guardian denies using tobacco, the patient reports quitting approximately 2 years ago, Patient/guardian denies using alcohol. Screenin:32 Abuse screen: Denies threats or abuse. Denies injuries from another. Nutritional ld1 screening: No deficits noted. Tuberculosis screening: No symptoms or risk factors identified. Fall Risk None identified. Assessment: 12:32 Reassessment: See triage assessment. ld1 Vital Signs: 12:27 Pulse 55; Resp 18; Temp 98.3(O); Pulse Ox 94% on R/A; Weight 83.46 kg; Height 5 ft. 5 ld1 in. (165.10 cm); Pain 10/10; 14:03 BP 155 / 84; Pulse 54; Resp 18 S; Temp 98.0; Pulse Ox 93% on R/A; iw 12:27 Body Mass Index 30.62 (83.46 kg, 165.10 cm) ld1 ED Course: 12:23 Patient arrived in ED. eb 12:24 Austin Raaz NP is PHCP. pm1 12:24 Butch Yeung MD is Attending Physician. pm1 12:26 Wanda Rust RN is Primary Nurse. ld1 12:30 Triage completed. ld1 12:30 Arm band placed on right wrist. ld1 12:32 Patient has correct armband on for positive identification. Placed in gown. Bed in low ld1 position. Call light in reach. Side rails up X2. monitoring engineer on. Pulse ox on. NIBP on. Door closed. Noise minimized. 12:32 No provider procedures requiring assistance completed. ld1 13:46 CT Head Brain wo Cont In Process Unspecified. EDMS 14:04 Hip Left 2 View XRAY In Process Unspecified. EDMS 15:07 Patient did not have IV access during this emergency room visit. iw Administered Medications: 13:20 Drug: Lidoderm Patch 5 % (700 mg/patch) 1 patches Route: Topical; Site: affected area; ld1 Medication: 12:32 VIS not applicable for this client. ld1 Outcome: 14:44 Discharge ordered by MD. pm1 15:07 Discharged to home ambulatory. iw 15:07 Condition: good 15:07 Discharge instructions given to patient, Instructed on discharge instructions, follow up and referral plans. Demonstrated understanding of instructions, follow-up care. 15:29 Patient left the ED. ld1 Signatures: Dispatcher [employer] Jacquelin Rios, ASHLEY RN iw Austin Raza, [employer] pm1 Jo Ann Huynh Lauren, RN RN ld1 Corrections: (The following items were deleted from the chart) 15:07 14:03 BP 155 / 84; Pulse 18bpm; Resp 54bpm; Pulse Ox 93% RA; ld1 iw
[2021-12-03 16:05] VITALS: BP 155/84; TEMP 98; O2SAT 93
== END 2021-12-03 15:29 | disposition home or self-care (01) ==
LOC: ER 12:21
DX: S70.02XA Contusion of left hip, initial encounter (principal); S09.90XA Unspecified injury of head, initial encounter; W18.30XA Fall on same level, unspecified, initial encounter; I10 Essential (primary) hypertension; Z21 Asymptomatic human immunodeficiency virus [HIV] infection status; F31.9 Bipolar disorder, unspecified; Z88.1 Allergy status to other antibiotic agents; Z88.2 Allergy status to sulfonamides; Z88.5 Allergy status to narcotic agent; Z88.8 Allergy status to other drugs, medicaments and biological substances
CPT/HCPCS: 70450; 73502; 99284; J2001

== ENCOUNTER 2021-12-15 19:56 | Emergency (ER) | payer OTHER ==
--- OUTSIDE RECORDS SUMMARY | 2021-12-15 20:07 | XMS REPORT | Continuity of Care Document ---
:1955 Author Organization [facility] t Address [address] [place] [address] Care Team Providers Name Role Phone Francisco Rahman Primary Care Physician Ashely Attending Clinician Unavailable JENNY Attending Clinician Unavailable RONALD Attending Clinician Unavailable KIERSTEN GUO Attending Clinician Unavailable Kiersten Rose Attending Clinician [facility] Attending Clinician Unavailable Ronald DHILLON Attending Clinician Kinjal JENKINS Attending Clinician Yazmin JENKINS Attending Clinician Carol Ann IZQUIERDO, M. Attending Clinician Prabhu SANCHEZ Attending Clinician Unavailable Devin HUITRONP, R Attending Clinician Clark SANCHEZ Attending Clinician Unavailable Diana SANCHEZ Attending Clinician Unavailable Remigio JENKINS V. Attending Clinician KINJAL Attending Clinician Unavailable DO SYL Attending Clinician Unavailable Kristen Rahman Admitting Clinician Unavailable Ashely Admitting Clinician Unavailable YAZMIN Admitting Clinician Unavailable DO SYL Admitting Clinician Unavailable Payers Payer Name Policy Type Policy Number Effective Date Expiration Date S gabino [facility] [id number] 2012 STARPLUS OON 00:00:00 EXCEPT [facility] [employer] DUAL [id number] 2020 COMP HMO D SNP 00:00:00 MEDICAID OF [place] [id number] 2020 00:00:00 Problems Condition Condition Condition Status Onset Resolution Last Treating Co mments Source Name Details Category Date Date Treatment Clinician Date Gastropare Gastropare Disease Active Overview : Methodi sis sis 4-[address] 00:00: [facility] 00 note l might be different from the original. Added automatic ally from request for surgery [id number] Dysphagia Dysphagia Disease Active Overview: Methodi 4-[address] 00:00: [facility] of this [facility]osp[facility] 00 note l might be different from the original. Added automatic ally from request for surgery [id number] CCL / EPS Diagnosis Active 2020-10-15 Memoria PVI 3-30 17:07:00 l ABLATION CCL / 00:00: [place] W/ CARTO / EPS PVI 00 GA / T ABLATION W/ CARTO / GA / T Active 08/19/2020 [facility] Food Food Disease Active 2019-05 [...] (BMI 2-19 ity of 30-39.9) 30-39.9) 00:00: [place] [facility] Anemia Anemia Disease Active 2014-05 Univers 0-03 ity of 00:00: [place] [facility] Hypovolemi Hypovolemi Disease Active 2014-05 U nivers a due to a due to 0-02 ity of hemorrhage hemorrhage 00:[place] [facility] Chest pain Chest pain Disease Active 2014-05 U nivers 0- ity of 00:00: [place] [facility] 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:00: [place] shoulder shoulder 00 Medica l arthroplas arthroplas Br anch ty ty Posttrauma Posttrauma Disease Active U nivers tic stress tic stress 09-27 it y of disorder disorder 00:00: [place] [facility] 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 00:00: [place] virus virus Medical (HIV) (HIV) Branch disease disease Bipolar 2 Bipolar 2 Disease Active Uni vers disorder disorder 11-18 ity of 00:00: [place] [facility] Chronic Chronic Disease Active Univers hepatitis hepatitis 11-18 ity of C C 00:00: [place] [facility] Hypertensi Hypertensi Disease Active U nivers on on 11-18 ity of 00:00: [place] [facility] Allergies, Adverse Reactions, Alerts Allergy Allergy Status Severity Reaction(s) Onset Inactive Treating Comm ents Source Name Type Date Date Clinician sulfamet DA Active SV N/V [facility] hoxazole 1-25 Clear 00:00: Garcia 00 [facility] trimetho DA Active SV [facility] prim 1-25 Clear 00:00: Garcia 00 [facility] codeine DA Active SV N/V [facility] 1-25 Clear 00:00: Garcia [facility] Metoclop Propensi Active 2021-0 [place] ramide ty to 12-12 Health adverse [...] INGREDI - ity of HCL 00:00: [place] [facility] Metoclop Propensi Active Anxiety 2014- Unive rs ramide ty to 02-14 ity of Hcl adverse 00:00: [place] reaction 00 Medical s Branch BUTORPHA DRUG Active High Hallucinates Un matt NOL INGREDI 2-14 ity of TARTRATE 00:00: [place] 00 Medical Branch Butorpha Propensi Active Hallucinatio Univers nol ty to ns 2-14 ity of Tartrate adverse 00:00: [place] reaction 00 Medical s to Branch drug Butorpha Allergy Active Hallucinatio 2010-0 Other U T nol to ns 2-14 reaction( Health substanc 00:00: s): e 00 confusion , Hallucina tions, Hallucina tions, Hallucina tions, Unknown - See comments Bactrim Bactrim Active Get [place] Family History Family Member Diagnosis Comments Start Date Stop Date Source [facility] Social History Social Habit Start Date Stop Date Quantity Comments Source History [facility] Alcohol Comment History of tobacco Smoker Method [facility] use Hospital History [facility] Frequency Hospita l History [facility] Std Drinks Hospit al History [facility] Exposure to 2021-12-02 2021-12-12 Not sure University SARS-CoV-2 (event) 00:00:00 23:54:00 [facility] Alcohol intake 2021-07-14 2021-07-14 Ex-drinker [place] [facility] 00:00:00 00:00:00 (finding) Cigarettes smoked 2020-09-05 2020-09-[address] current (pack per 00:00:00 00:00:00 Hospita l day) - Reported Cigarette 2020-09-05 2020-09-05 [facility] pack-[facility] 00:00:00 00:00:00 Hospital Tobacco use and 2020-08-06 2020-08-06 Former smokeless Uni versity of exposure 00:00:00 00:00:00 tobacco user [facility] [place] Tobacco Comment 2015-02-14 2015-02-14 Smokes approx 1-2 Un iversity of 00:00:00 00:00:00 cigarettes per [place] [facility] porfirio day when she Branch smokes Sex [birth year] [place] [facility] 00:00:00 00:00:00 Smoking Status Start Date Stop Date Source Ex-smoker 2020-08-06 00:00:00 2020-08-06 00:00:00 Universi ty [facility] Medications Ordered Filled Start Stop Current Ordering Indication Dosage Frequency Signature Comments Components Source Medication Medication Date Date Medication? Clinician (SIG) Name Name methocarbam No 500mg 500 mg, U nivers oL 12-13 Oral, ity of (ROBAXIN) 07:45: 06:35 ONCE, 1 [place] tablet 500 [place] :[place] dose, On Medic al [facility] 12/13/21 at 0245, Routine ketorolac 2021- No 30mg 30 mg, Unive rs (TORADOL) 12-13 0724 Intramuscu ity of injection 07:45: 06:34 [place], ONCE, [place] 30 mg 00 :00 1 dose, On Medical [facility] [place] 12/13/21 at 0245, JOE naproxen Yes [id number] 500mg Take 1 U nivers (NAPROSYN) 7-24 tablet by ity of 500 mg 00:00: mouth in [place] 00 the Medical morning Branch and 1 tablet in the evening. Take with meals. methocarbam Yes [id number] 500mg Take 1 Univers oL 500 mg 7-24 tablet by ity o f tablet 00:00: mouth 4 00 (four) Medical times Branch daily. hydralAZINE Yes 25mg Take 25 mg Univers (APRESOLINE 7-01 by mouth ity of ) 25 mg 08:47: daily. [place] tablet 47 Medical Branch hydralAZINE 0 Yes 25mg Take 25 mg Univers (APRESOLINE 7-01 by mouth ity of ) 25 mg 08:47: daily. [place] tablet 47 Medical Branch buPROPion 2021-0 Yes [id number] 150mg Take 1 U nivers XL 4-12 tablet by ity of (WELLBUTRIN 00:00: mouth [place] XL) 150 mg 00 daily. Medical 24 hr Branch tablet busPIRone 2021-0 Yes [id number] 30mg Take 1 Un matt 30 mg 4-12 tablet by ity of tablet 00:00: mouth 2 [place] 00 (two) Medical times Branch daily. SERTraline 0 Yes [id number] 200mg Take 2 Univers 100 mg 4-12 tablets by ity of tablet 00:00: mouth [place] 00 daily. Medical Branch buPROPion 0 Yes [id number] 150mg Take 1 U nivers XL 4-12 tablet by ity of (WELLBUTRIN 00:00: mouth [place] XL) 150 mg 00 daily. Medical 24 hr Branch tablet busPIRone 2021-0 Yes [id number] 30mg Take 1 Un matt 30 mg 4-12 tablet by ity of tablet 00:00: mouth 2 [place] 00 (two) Medical times Branch daily. SERTraline 2021-0 Yes [id number] 200mg Take 2 Univers 100 mg 4-12 tablets by ity of tablet 00:00: mouth [place] 00 daily. Medical Branch raltegravir 0 Yes [id number] 400mg Take 1 Univers (ISENTRESS) 3-28 tablet by ity of 400 mg 00:00: mouth 2 [place] tablet 00 (two) Medical times Branch daily. raltegravir 2021-0 Yes [id number] 400mg Take 1 Univers (ISENTRESS) 3-28 tablet by ity of 400 mg 00:00: mouth 2 [place] tablet 00 (two) Medical times Branch daily. raltegravir 2021-0 Yes [id number] 400mg Take 1 Univers (ISENTRESS) 3-28 tablet by ity of 400 mg 00:00: mouth 2 [place] tablet 00 (two) Medical times Branch daily. LORazepam 1 0 Yes [id number] 1mg Take 1 Univers mg tablet 3-21 tablet by ity o f 00:00: mouth 3 [place] 00 (three) Medical times Branch daily as needed (anxiety). raltegravir Yes 400mg Q.5D Take 400 U T (Isentress) 2-22 mg by Health 400 MG 09:09: mouth 2 tablet 52 (two) times a day. furosemide Yes 40mg Q.5D Take 40 mg U T (Lasix) 40 2-08 by mouth 2 Hea lth MG tablet 00:00: (two) 00 times a day. promethazin Yes 25mg Q.5D Take 25 mg UT e 2-08 by mouth 2 Health (Phenergan) 00:00: (two) 25 MG 00 times a tablet day. buPROPion 2021- No [id number] 150mg Take 1 Univers XL -24 -12 tablet by ity of (WELLBUTRIN 00:00: 00:00 [place] XL) 150 mg 00 :00 daily. Medical 24 hr Branch tablet busPIRone 2021- No [id number] 30mg Take 1 U nivers 30 mg 24 -12 tablet by ity of tablet 00:00: 00:00 mouth 2 [place] 00 :00 (two) Medical times Branch daily. SERTraline 2021- No [id number] 200mg Take 2 Univers 100 mg -24 -12 tablets by ity of tablet 00:00: 00:00 mouth [place] 00 :00 daily. Medical Branch emtricitabi Yes [id number] Take one Univers ne-tenofovi 1-20 po daily ity of r alafen 00:00: [place] (DESCOVY) 00 Medical tablet Branch emtricitabi Yes [id number] Take one Univers ne-tenofovi 1-20 po daily ity of r alafen 00:00: [place] (DESCOVY) 00 Medical tablet Branch emtricitabi Yes [id number] Take one Univers ne-tenofovi 1-20 po daily ity of r alafen 00:00: [place] (DESCOVY) 00 Medical tablet Branch metoprolol Yes [id number] Take 1 [facility] tartrate 7-26 tablet Health (Lopressor) 00:00: (100 mg 100 MG 00 total) by tablet mouth 2 (two) times a day AND 0.5 tablets (50 mg total) every night. metoprolol 0 Yes [id number] Take 1 [place] tartrate 7-26 tablet Health [...] area in groin) hydrALAZINE 0 Yes 50mg Q.[id number] Take 50 mg Methodi (APRESOLINE 7-[id number] ) 50 MG 10:51: 3D (three) Hospita tablet 25 times a l day. busPIRone 2021-0 Yes 20mg QD Take 20 mg Me [...] Hospita tablet 25 daily. l nystatin-tr Yes [id number] Apply to [facility] 7- area(s) 3 ity of cream 00:00: (three) [place] 00 times Medical daily. Branch nystatin-tr 0 Yes [id number] Apply to [facility] 7- area(s) 3 ity of cream 00:00: (three) [place] 00 times Medical daily. Branch nystatin-tr 0 Yes [id number] Apply to [facility] 7-06 area(s) 3 ity of cream 00:00: (three) [place] 00 times Medical daily. Branch budesonide- 2020-0 2020- No 1{puff} QD Inhale 1 Methodi formoteroL 6-25 06-[address] (SYMBICORT) 14:37: 00:00 morning. H ospita 160-4.5 02 :00 l mcg/actuati on inhaler hydrALAZINE 0 Yes [id number] 50mg Q.[id number] Take 1 UT (Apresoline 6-11 [id number] tablet (50 Health ) 50 MG 00:00: 3D mg total) tablet 00 by mouth 3 (three) times a day. hydrALAZINE 0 Yes [id number] 50mg Q.[id number] Take 1 UT (Apresoline 6-11 [id number] tablet (50 Health ) 50 MG 00:00: [...] 2 % 00:00: ointment 00 nystatin 2020-0 1- No [id number] Q.25D Take 5 mL Methodi (MYCOSTATIN 5-17 06- (500,000 st ) 100,000 00:00: 04:59 Units Hospit a unit/mL 00 :00 total) by l suspension mouth 4 (four) times a day for 14 days. Swish in mouth sucralfate 2020-2020- No 1g Q.25D Take 10 mL Methodi [...] e 4-10 Tablet l 14:00: should not [place] 00 be chewed or crushed. (Same as: [...] ia 4-10 (Same as: l 14:00: Zoloft) [place] 00 Sertraline No Notes: Memor ia 4-10 (Same as: l 14:00: Zoloft) [place] pantoprazol No Notes: Caesar lisa e 4-10 Tablet l 14:00: should not [place] 00 be chewed or crushed. (Same as: Protonix) Amiodarone No Notes: Memor ia 4-10 (Same as: l 14:00: Cordarone) [place] 00 Amlodipine No Notes: Memor ia 4-10 (Same as: l 14:00: Norvasc) [place] emtricitabi No Notes: Caesar lisa ne 200 MG / 4-10 (Same as: l tenofovir 14:00: Descovy) Herm ariel alafenamide 00 Non-formul 25 MG Oral nancy Tablet [Descovy] Sertraline No Notes: Memor ia 4-10 (Same as: l 14:00: Zoloft) [place] pantoprazol No Notes: [place] lisa e 4-10 [...] e 4-10 Tablet l 14:00: should not [place] 00 be chewed or crushed. (Same as: Protonix) Amiodarone No Notes: Memor ia 4-10 (Same as: l 14:00: Cordarone) [place] Amlodipine No Notes: Memor ia 4-10 (Same as: l 14:00: Norvasc) [place] emtricitabi No Notes: Caesar lisa ne 200 [...] e 4-10 Tablet l 14:00: should not [place] 00 be chewed or crushed. (Same as: Protonix) Amiodarone No Notes: Memor ia 4-10 (Same as: l 14:00: Cordarone) Amlodipine No Notes: Memor ia 4-10 (Same as: l 14:00: Norvasc) [place] 00 emtricitabi No Notes: Caesar lisa ne 200 MG / 4-10 (Same as: l tenofovir 14:00: Descovy) Herm ariel alafenamide 00 Non-formul 25 MG Oral nancy Tablet [Descovy] Sertraline No Notes: Memor ia 4-10 (Same as: l 14:00: Zoloft) pantoprazol No Notes: Caesar lisa e 4-10 Tablet l 14:00: should not [place] 00 be chewed or crushed. (Same as: [...] 0.9% 4-10 (Same as: l 02:00: BD [place] 00 Posiflush) Eliquis No Notes: Memoria 4-10 Same as: l 02:00: Eliquis [place] Hydralazine No Notes: Caesar lisa Hydrochlori 4-10 [...] M emoria 4-10 interfere l 02:00: w/enteral [place] 00 feeds - Take 1 hr before [...] Memoria 4-10 Same as: l 02:00: Eliquis [place] Hydralazine No Notes: Caesar lisa Hydrochlori 4-10 [...] feedings Take With Food Sucralfate No Notes: September M emoria 4-10 interfere l 02:00: w/enteral [place] 00 feeds - Take 1 hr before or 2 hr after antacids, dairy pdt, meals & minerals - On empty stomach. For patients unable to swallow tablet, dissolve in 10mL - 30mL of water or juice and stir before giving. (Same As: Carafate) Saline No Notes: Memoria Flush 0.9% 4-10 (Same as: l 02:00: BD [place] 00 Posiflush) Eliquis No Notes: Memoria 4-10 [...] M emoria 4-10 interfere l 02:00: w/enteral [place] 00 feeds - Take 1 hr before or 2 hr after antacids, dairy pdt, meals & minerals - On empty stomach. For patients unable to swallow tablet, dissolve in 10mL - 30mL of water or juice and stir before giving. (Same As: Carafate) Saline No Notes: Memoria Flush 0.9% 4-10 (Same as: l 02:00: BD [place] 00 Posiflush) Eliquis No Notes: Memoria 4-10 Same as: l 02:00: Eliquis Hydralazine No Notes: Caesar lisa Hydrochlori 4-10 (Same as: l de 50 MG 02:00: Apresoline Her mithcell Oral Tablet 00 ) May interfere w/enteral feedings Take With Food acetaminoph No Notes: Do M emoria en-codeine 4-10 not exceed l #3 00:12: 4gm/day of [place] acetaminop hen. (Same as: Tylenol with Codeine # 3) acetaminoph No Notes: Do M emoria en-codeine 4-10 not exceed l #3 00:12: 4gm/day of [place] acetaminop hen. (Same as: Tylenol with Codeine # 3) acetaminoph No Notes: Do M emoria en-codeine 4-10 not exceed l #3 00:12: 4gm/day of [place] acetaminop hen. (Same as: Tylenol with Codeine # 3) acetaminoph No Notes: Do M emoria en-codeine 4-10 not exceed l #3 00:12: 4gm/day of [place] acetaminop hen. (Same as: Tylenol with Codeine # 3) acetaminoph No Notes: Do M emoria en-codeine 4-10 not exceed l #3 00:12: 4gm/day of [place] acetaminop hen. (Same as: Tylenol with Codeine # 3) acetaminoph No Notes: Do M emoria en-codeine 4-10 not exceed l #3 00:12: 4gm/day of [place] acetaminop hen. (Same as: Tylenol with Codeine # 3) acetaminoph No Notes: Do M emoria en-codeine 4-10 not exceed l #3 00:12: 4gm/day of [place] acetaminop hen. (Same as: Tylenol with Codeine # 3) Buspirone No Notes: Memori a 4-09 (Same As: l 22:00: BuSpar) Lisinopril 0 No 40 mg, 1 Mem oria 4-09 tab, l 22:00: Route: PO, [place] Drug form: TAB, BID, Dosing Weight 97.273, kg, Start date: 08/29/20 17:00:00 CDT, Duration: 30 day, Stop date: 09/28/20 9:00:00 CDT metoprolol 2020-0 No 100 mg, 1 Me moria tartrate 4-09 tab, l 22:00: Route: PO, [place] Drug form: TAB, BID, Dosing Weight 97.273, [...] oria 4-09 tab, l 22:00: Route: PO, [place] 00 Drug form: TAB, BID, Dosing Weight [...] oria - tab, l 22:00: Route: PO, [place] Drug form: TAB, BID, Dosing Weight 97.273, kg, Start date: 08/29/20 17:00:00 CDT, Duration: 30 day, Stop date: 09/28/20 9:00:00 CDT metoprolol 2021-0 No 100 mg, 1 Me moria tartrate 4-09 tab, l 22:00: Route: PO, [place] 00 Drug form: TAB, BID, Dosing Weight [...] oria 4-09 tab, l 22:00: Route: PO, [place] 00 Drug form: TAB, BID, Dosing Weight 97.273, kg, Start date: 08/29/20 17:00:00 CDT, Duration: 30 day, Stop date: 09/28/20 9:00:00 CDT metoprolol 2020-0 No 100 mg, 1 Me moria tartrate 4- tab, l 22:00: Route: PO, [place] 00 Drug form: TAB, BID, Dosing Weight [...] tartrate 4-09 tab, l 22:00: Route: PO, [place] 00 Drug form: TAB, BID, Dosing Weight [...] tartrate 4-09 tab, l 22:00: Route: PO, [place] 00 Drug form: TAB, BID, Dosing Weight [...] 0 Buspirone 2020-0 No Notes: Memori a 4 (Same As: l 22:00: BuSpar) [place] 00 [...] Notes: Memoria 4-09 (Same l 17:07: as:MORPhin [place] 00 e Sulfate) Morphine No Notes: Memoria 4-09 (Same l 17:07: as:MORPhin [place] 00 e Sulfate) Morphine No Notes: Memoria 4-09 (Same l 17:07: as:MORPhin [place] 00 e Sulfate) Morphine No Notes: Memoria 4-09 (Same l 17:07: as:MORPhin [place] 00 e Sulfate) Morphine No Notes: Memoria 4-09 (Same l 17:07: as:MORPhin [place] 00 e Sulfate) Morphine No Notes: Memoria 4-09 (Same l 17:07: as:MORPhin [place] 00 e Sulfate) Morphine No Notes: Memoria 4-09 (Same l 17:07: as:MORPhin [place] 00 e Sulfate) buPROPion No 150 mg, [...] 08-29 Drug form: l 15:40: INJ, ONCE, [place] Stop date: 08/29/20 10:40:00 CDT pantoprazol 2021-0 Yes 40 mg = 1 M emoria e 40 mg 4-09 tab, PO, l oral 15:27: Daily, # [place] enteric 00 30 tab, 0 coated Refill(s), tablet Pharmacy: [facility] 149, 162.56, cm, 08/29/20 5:30:00 CDT, Height, 97.273, kg, 08/29/20 5:30:00 CDT, Weight pantoprazol 2021-0 Yes 40 mg = 1 M emoria e 40 mg 4-09 tab, PO, l oral 15:27: Daily, # [place] enteric 00 30 tab, 0 coated Refill(s), tablet Pharmacy: [facility] 149, 162.56, cm, 08/29/20 5:30:00 CDT, Height, 97.273, kg, 08/29/20 5:30:00 CDT, Weight pantoprazol 2021-0 Yes 40 mg = 1 M emoria e 40 mg 4-09 tab, PO, l oral 15:27: Daily, # [place] enteric 00 30 tab, 0 coated Refill(s), tablet Pharmacy: [facility] 149, 162.56, cm, 08/29/20 5:30:00 CDT, Height, 97.273, kg, 08/29/20 5:30:00 CDT, Weight pantoprazol 2021-0 Yes 40 mg = 1 M emoria e 40 mg 4-09 tab, PO, l oral 15:27: Daily, # [place] enteric 00 30 tab, 0 coated Refill(s), tablet Pharmacy: [facility] 149, 162.56, cm, 08/29/20 5:30:00 CDT, Height, 97.273, kg, 08/29/20 5:30:00 CDT, Weight pantoprazol 2021-0 Yes 40 mg = 1 M emoria e 40 mg 4-09 tab, PO, l oral 15:27: Daily, # [place] enteric 00 30 tab, 0 coated Refill(s), tablet Pharmacy: [facility] 149, 162.56, cm, 08/29/20 5:30:00 CDT, Height, 97.273, kg, 08/29/20 5:30:00 CDT, Weight pantoprazol 2020-0 Yes 40 mg = 1 M emoria e 40 mg 4-09 tab, PO, l oral 15:27: Daily, # [place] enteric 00 30 tab, 0 coated Refill(s), tablet Pharmacy: [facility] 149, 162.56, cm, 08/29/20 5:30:00 CDT, Height, 97.273, kg, 08/29/20 5:30:00 CDT, Weight pantoprazol 2020-0 Yes 40 mg = 1 M emoria e 40 mg 4-09 tab, PO, l oral 15:27: Daily, # [place] enteric 00 30 tab, 0 coated Refill(s), tablet Pharmacy: [facility] 149, 162.56, cm, 08/29/20 5:30:00 CDT, [...] Skylar nn 00 tab, 0 Refill(s), Pharmacy: [facility] 149, 162.56, cm, 08/29/20 5:30:00 CDT, Height, 97.273, kg, 08/29/20 5:30:00 CDT, Weight pantoprazol 2020-0 No 40 mg = 1 M emoria e 40 mg 4-09 tab, PO, l oral 15:26: Daily, # [place] enteric 00 30 tab, 0 coated Refill(s) tablet sucralfate 2020-0 Yes 1 gm = 1 Mem oria 1 g oral 4-09 tab, PO, l tablet 15:26: Q12H, # 28 Skylar nn 00 tab, 0 Refill(s), Pharmacy: [facility] 149, 162.56, cm, 08/29/20 5:30:00 CDT, Height, 97.273, kg, 08/29/20 5:30:00 CDT, Weight pantoprazol 2020-0 No 40 mg = 1 M emoria e 40 mg 4-09 tab, PO, l oral 15:26: Daily, # [place] enteric 00 30 tab, 0 coated Refill(s) tablet sucralfate 2020-0 Yes 1 gm = 1 Mem oria 1 g oral 4-09 tab, PO, l tablet 15:26: Q12H, # 28 Skylar nn 00 tab, 0 Refill(s), Pharmacy: [facility] 149, 162.56, cm, 08/29/20 5:30:00 CDT, [...] Skylar nn 00 tab, 0 Refill(s), Pharmacy: [facility] 149, 162.56, cm, 08/29/20 5:30:00 CDT, [...] Skylar nn 00 tab, 0 Refill(s), Pharmacy: [facility] 149, 162.56, cm, 08/29/20 5:30:00 CDT, Height, 97.273, kg, 08/29/20 5:30:00 CDT, Weight pantoprazol No 40 mg = 1 M emoria e 40 mg 4-09 tab, PO, l oral 15:26: Daily, # [place] enteric 00 30 tab, 0 coated Refill(s) tablet sucralfate Yes 1 gm = 1 Mem oria 1 g oral 4-09 tab, PO, l tablet 15:26: Q12H, # 28 Skylar nn 00 tab, 0 Refill(s), Pharmacy: [facility] 149, 162.56, cm, 08/29/20 5:30:00 CDT, [...] Skylar nn 00 tab, 0 Refill(s), Pharmacy: [facility] 149, 162.56, cm, 08/29/20 5:30:00 CDT, Height, 97.273, kg, 08/29/20 5:30:00 CDT, Weight Saline No Notes: Memoria Flush 0.9% 4-09 (Same as: l 15:25: BD [place] Posiflush) Lorazepam No Notes: Memori a 4-09 (Same as: l 15:25: Ativan) [place] Saline No Notes: Memoria Flush 0.9% 4-09 [...] a 4-09 (Same as: l 15:25: Ativan) [place] 00 Lorazepam No Notes: Memori a 4-09 (Same as: l 15:25: Ativan) [place] 00 Saline No Notes: Memoria Flush 0.9% 4-09 (Same as: l 15:25: BD [place] 00 Posiflush) Lorazepam No Notes: Memori a 4-09 (Same as: l 15:25: Ativan) [place] 00 Saline No Notes: Memoria Flush 0.9% [...] Drug form: l mg + 15:00: INJ, [place] 00 Dosing Weight 97.3, kg, Start date: [...] Drug form: l mg + 15:00: INJ, [place] 00 Dosing Weight 97.3, kg, Start date: [...] INJ, ONCE, Stop date: 08/29/20 9:18:00 CDT Flumazenil 2020-0 No 0.2 mg, Caesar lisa [...] ia 08-29 Route: l 14:01: IVP, ONCE, [place] 00 Dosing Weight 97.273, kg, PRN Nausea [...] lisa 08-29 Route: l 14:01: IVP, PRN, [place] 00 Dosing Weight 97.273, kg, PRN Benzodiaze pine Reversal, Initial dose, Start date: 08/29/20 9:01:00 CDT, Duration: 30 day, Stop date: 09/28/20 9:00:00 CDT Naloxone 1-0 No 0.4 mg, Memori a 08-29 Route: l 14:01: IVP, [place] 00 Q2MIN, Dosing Weight 97.273, kg, PRN Narcotic Reversal, Start date: 08/29/20 9:01:00 CDT, Duration: 8 doses or times, Stop date: Limited # of times Ondansetron 1-0 No 4 mg, Memor ia 08-29 Route: l 14:01: IVP, ONCE, [place] 00 Dosing Weight 97.273, kg, PRN Nausea [...] 08-29 Route: PO, l 14:01: Drug form: [place] 00 TAB, ONCE, Dosing Weight 97.273, kg, [...] lisa 08-29 Route: l 14:01: IVP, PRN, [place] Dosing Weight 97.273, kg, PRN Benzodiaze pine Reversal, Initial dose, Start date: 08/29/20 9:01:00 CDT, Duration: 30 day, Stop date: 09/28/20 9:00:00 CDT Naloxone 2021-0 No 0.4 mg, Memori a 08-29 Route: l 14:01: IVP, [place] 00 Q2MIN, Dosing Weight 97.273, kg, PRN Narcotic Reversal, Start date: 08/29/20 9:01:00 CDT, Duration: 8 doses or times, Stop date: Limited # of times Ondansetron 2021-0 No 4 mg, Memor ia 08-29 Route: l 14:01: IVP, ONCE, [place] Dosing Weight 97.273, kg, PRN Nausea & Vomiting, Start date: 08/29/20 9:01:00 CDT Labetalol 2021-0 No 10 mg, Memori a 08-29 Route: l 14:01: IVP, [place] 00 Q5Min, Dosing Weight 97.273, kg, PRN Elevated BP, Start date: 08/29/20 9:01:00 CDT, Duration: 5 doses or times, Stop date: Limited # of times Acetaminoph 2021-0 No 1,000 mg, M emoria en 08-29 Route: PO, l 14:01: Drug form: [place] 00 TAB, ONCE, Dosing Weight 97.273, kg, [...] lisa 08-29 Route: l 14:01: IVP, PRN, [place] 00 Dosing Weight 97.273, kg, PRN Benzodiaze [...] ia 08-29 Route: l 14:01: IVP, ONCE, [place] 00 Dosing Weight 97.273, kg, PRN Nausea [...] Oxycodone 2021-0 No 5 mg, Memoria Hydrochlori 09 Route: PO, l de 5 MG 14:01: Drug form: Herm ariel Oral Tablet 00 TAB, Q4H, Dosing Weight 97.273, kg, PRN Pain Score 4-6, Start date: 08/29/20 9:01:00 CDT, Duration: 30 day, Stop date: 09/28/20 9:00:00 CDT Hydromorpho 2021-0 No 0.5 mg, Mem oria ne 08-29 Route: l 14:01: IVP, [place] 00 Q5Min, Dosing Weight 97.273, kg, PRN Pain Score 7-10, Start date: 08/29/20 9:01:00 CDT, Duration: 4 doses or times, Stop date: Limited # of times Labetalol 2021-0 No 10 mg, Memori a 08-29 Route: l 14:01: IVP, [place] 00 Q5Min, Dosing Weight 97.273, kg, PRN [...] Oxycodone 2021-0 No 5 mg, Memoria Hydrochlori 09 Route: PO, l de 5 MG 14:01: Drug form: Herm ariel Oral Tablet 00 TAB, Q4H, Dosing Weight 97.273, kg, PRN Pain Score 4-6, Start date: 08/29/20 9:01:00 CDT, Duration: 30 day, Stop date: 09/28/20 9:00:00 CDT Hydromorpho 2021-0 No 0.5 mg, Mem oria ne 08-29 Route: l 14:01: IVP, [place] 00 Q5Min, Dosing Weight 97.273, kg, PRN Pain Score 7-10, Start date: 08/29/20 9:01:00 CDT, Duration: 4 doses or times, Stop date: Limited # of times Flumazenil 2021-0 No 0.2 mg, Caesar lisa 08-29 Route: l 14:01: IVP, PRN, [place] 00 Dosing Weight 97.273, kg, PRN Benzodiaze [...] 08-29 Route: PO, l 14:01: Drug form: [place] 00 TAB, ONCE, Dosing Weight 97.273, kg, [...] ia 08-29 Route: l 14:01: IVP, ONCE, [place] 00 Dosing Weight 97.273, kg, PRN Nausea [...] oria ne 08-29 Route: l 14:01: IVP, [place] 00 Q5Min, Dosing Weight 97.273, kg, PRN Pain Score 7-10, Start date: 08/29/20 9:01:00 CDT, Duration: 4 doses or times, Stop date: Limited # of times lidocaine No Route: IV, Me moria (ANES) [...] 08-29 Drug form: l 13:42: INJ, ONCE, [place] Stop date: 08/29/20 8:42:00 CDT fentaNYL 2020-0 No Route: IV, Mem oria (ANES) 08-29 Drug form: l 13:42: INJ, ONCE, Marty 00 Stop date: 08/29/20 8:42:00 CDT norepinephr 2020-0 No Route: IV, Memoria ine (ANES) 08-29 Drug form: l 10 13:15: INJ, Start [place] microgram 00 date: 08/29/20 8:15:00 CDT, Stop date: 08/29/20 9:15:00 CDT norepinephr 2020-0 No Route: IV, Memoria ine (ANES) 08-29 Drug form: l 10 13:15: INJ, Start Marty microgram 00 date: 08/29/20 8:15:00 CDT, Stop date: 08/29/20 9:15:00 CDT norepinephr 2020-0 No Route: IV, Memoria ine (ANES) 08-29 Drug form: l 10 13:15: INJ, Start [place] microgram date: 08/29/20 8:15:00 CDT, Stop date: 08/29/20 9:15:00 CDT norepinephr 2020-0 No Route: IV, Memoria ine (ANES) 08-29 Drug form: l 10 13:15: INJ, Start Marty microgram 00 date: 08/29/20 8:15:00 CDT, Stop date: 08/29/20 9:15:00 CDT norepinephr 2020-0 No Route: IV, Memoria ine (ANES) 08-29 Drug form: l 10 13:15: INJ, Start [place] microgram 00 date: 08/29/20 8:15:00 CDT, Stop [...] 4-09 Total l 0.9% IV 12:30: Volume: [place] (ANES) 1000 00 1,000, mL Start date: 08/29/20 7:30:00 CDT, Stop date: 08/29/20 8:30:00 CDT Sodium 2020-0 No Route: IV, Memor ia Chloride 4-09 Total l 0.9% IV 12:30: Volume: [place] (ANES) 1000 00 1,000, mL Start date: 08/29/20 7:30:00 CDT, Stop date: 08/29/20 8:30:00 CDT Sodium 2020-0 No Route: IV, Memor ia Chloride 4-09 Total l 0.9% IV 12:30: Volume: [place] (ANES) 1000 00 1,000, mL Start date: 08/29/20 7:30:00 CDT, Stop date: 08/29/20 8:30:00 CDT Sodium 2020-0 No Route: IV, Memor ia Chloride 4-09 Total l 0.9% IV 12:30: Volume: [place] (ANES) 1000 00 1,000, mL Start date: [...] PO, l Hydrochlori 11:42: Q24H, # 30 [place] de 150 MG 00 tab, 0 Extended Refill(s) Release Tablet 24 HR 0 Yes 150 mg = 1 Memori a Bupropion 4-09 tab, PO, l Hydrochlori 11:42: Q24H, # 30 [place] de 150 MG 00 tab, 0 Extended Refill(s) Release Tablet 24 HR 0 Yes 150 mg = 1 Memori a Bupropion 4-09 tab, PO, l Hydrochlori 11:42: Q24H, # 30 [place] de 150 MG 00 tab, 0 Extended [...] PO, l Hydrochlori 11:42: Q24H, # 30 [place] de 150 MG 00 tab, 0 Extended [...] 4- Q12H, tab, l Tablet 11:41: 0 [place] [Eliquis] 00 Refill(s), For Atrial Fibrilatio n apixaban 5 2020-0 Yes 5 mg, PO, Me moria MG Oral 4- Q12H, tab, l Tablet 11:41: 0 [place] [Eliquis] 00 Refill(s), For Atrial Fibrilatio n apixaban 5 2020-0 Yes 5 mg, PO, Me moria MG Oral 4- Q12H, tab, l Tablet 11:41: 0 Marty [Eliquis] 00 Refill(s), For Atrial Fibrilatio n apixaban 5 2020-0 Yes 5 mg, PO, Me moria MG Oral 4- Q12H, tab, l Tablet 11:41: 0 [place] [Eliquis] 00 Refill(s), For Atrial Fibrilatio n apixaban 5 2020-0 Yes 5 mg, PO, Me moria MG Oral 4- Q12H, tab, l Tablet 11:41: 0 [place] [Eliquis] 00 Refill(s), For Atrial Fibrilatio n [...] tab, PO, l tablet 11:38: Daily, # [place] 00 90 tab, 3 Refill(s) AMIODarone 0 Yes 200 mg = 1 M emoria 200 mg oral 4-09 tab, PO, l tablet 11:38: Daily, # [place] 00 90 tab, 3 Refill(s) AMIODarone 0 Yes 200 mg = 1 M emoria 200 mg oral 4-09 tab, PO, l tablet 11:38: Daily, # [place] 00 90 tab, 3 Refill(s) AMIODarone 2020-0 Yes 200 mg = 1 M emoria 200 mg oral 4-09 tab, PO, l tablet 11:38: Daily, # [place] 00 90 tab, 3 Refill(s) AMIODarone 2020-0 [...] 09/28/20 5:29:00 CDT, 2.13, m2, 0 normal 202-0 No 1,000 mL, Memori a saline 0.9% [...] 0 pantoprazol 2020- No Metho di e 08-2925 st (PROTONIX) 00:00: 00:00 Hospit a 40 MG EC 00 :00 l tablet sucralfate 2020- No Method i (CARAFATE) 08-2917 st 1 gram 00:00: 00:00 [facility] tablet 00 :00 l Eliquis 5 Yes Methodi mg tablet -27 st 00:00: [facility]osp[facility] 00 l apixaban Yes 5mg Take 5 mg Univ ers (ELIQUIS) 5 3-17 by mouth 2 it y of mg tablet 08:18: (two) [place] 30 times Medical daily. Branch amiodarone Yes [...] [place] capsule 41 times Medical daily. Branch lisinopril 2019- Yes 40mg Take 40 [...] mouth ity of 10 mg 08:06: daily. [place] tablet 41 Medical Branch albuterol 2019-0 Yes Univers 90 4-14 ity of mcg/actuati 00:00: [place] on inhaler 00 Medical Branch albuterol 2019-0 Yes Univers 90 4-14 ity of mcg/actuati 00:00: [place] on inhaler 00 Medical Branch albuterol 2019-0 Yes Univers 90 4-14 ity of mcg/actuati 00:00: [place] on inhaler 00 Medical Branch albuterol 2019-0 Yes albuterol [place] (2.5 2-11 sulfate Health MG/3ML) 00:00: 2.5 mg/3 0.083% 00 mL (0.083 nebulizer %) solution solution for nebulizati on albuterol 2019- Yes albuterol [place] (2.5 2-11 sulfate Health MG/3ML) 00:00: 2.5 mg/3 0.083% 00 mL (0.083 nebulizer %) solution solution for nebulizati on triamterene 2019-0 Yes 1{each} 1 each. [place] [...] Immunizations Ordered Filled Immunization Date Status Comments [facility] e Immunization Name Name PFIZER COVID-19 2020-07-23 Completed [facility] M[facility] VACCINATION 00:00:00 [facility] PFIZER COVID-19 2020-07-02 Completed [facility] MRNA VACCINATION 00:00:00 [facility] Influenza Virus 2017-03-08 Completed Universit y of Vaccine 00:00:00 [facility] Influenza Virus 2017-03-08 Completed Universit y of Vaccine 00:00:00 [facility] Influenza Virus 2017-03-08 Completed Universit y of Vaccine 00:00:00 [facility] Influenza Virus 2014-01-30 Completed Universit y of Vaccine (3+ yrs) 00:00:00 [facility] dical Branch Pneumococcal 13 2014-01-30 Completed Universit y of Conjugate, PCV13 00:00:00 [facility] dical (Prevnar 13) [place] Influenza Virus 2014-01-30 Completed Universit y of Vaccine (3+ yrs) 00:00:00 [facility] dical Branch Pneumococcal 13 2014-01-30 Completed Universit y of Conjugate, PCV13 00:00:00 [facility] dical (Prevnar 13) [place] Influenza Virus 2014-01-30 Completed Universit y of Vaccine (3+ yrs) 00:00:00 [facility] dical Branch Pneumococcal 13 2014-01-30 Completed Universit y of Conjugate, PCV13 00:00:00 [facility] dical (Prevnar 13) Branch Pneumococcal 2012-02-16 Completed University o f Polysaccharide, 00:00:00 [place] [facility] ical PPSV23 (PNEUMOVAX) Branch Influenza Virus 2012-02-16 Completed Universit y of Vaccine 00:00:00 [facility] PPD (TB) 2012-02-16 Completed University of 00:00:00 [facility] Pneumococcal 2012-02-16 Completed University o f Polysaccharide, 00:00:00 [place] [facility] ical PPSV23 (PNEUMOVAX) Branch Influenza Virus 2012-02-16 Completed Universit y of Vaccine 00:00:00 [facility] PPD (TB) 2012-02-16 Completed University of 00:00:00 [facility] Pneumococcal 2012-02-16 Completed University o f Polysaccharide, 00:00:00 [place] [facility] ical PPSV23 (PNEUMOVAX) Branch Influenza Virus 2012-02-16 Completed Universit y of Vaccine 00:00:00 [facility] PPD (TB) 2012-02-16 Completed University of 00:00:00 [facility] Hep B, Adol or Pedi 2011-09-01 Completed Unive rsity of Dosage 00:00:00 [facility] Hep B, Adol or Pedi 2011-09-01 Completed Unive rsity of Dosage 00:00:00 [facility] Hep B, Adol or Pedi 2011-09-01 Completed Unive rsity of Dosage 00:00:00 [facility] Hep B, Adol or Pedi 2011-03-17 Completed Unive rsity of Dosage 00:00:00 [facility] Hep B, Adol or Pedi 2011-03-17 Completed Unive rsity of Dosage 00:00:00 [facility] Hep B, Adol or Pedi 2011-03-17 Completed Unive rsity of Dosage 00:00:00 [facility] Influenza Virus 2011-02-10 Completed Universit y of Vaccine 00:00:00 [facility] Hep B, Adol or Pedi 2011-02-10 Completed Unive rsity of Dosage 00:00:00 [facility] Influenza Virus 2011-02-10 Completed Universit y of Vaccine 00:00:00 [facility] Hep B, Adol or Pedi 2011-02-10 Completed Unive rsity of Dosage 00:00:00 [facility] Influenza Virus 2011-02-10 Completed Universit y of Vaccine 00:00:00 [facility] Hep B, Adol or Pedi 2011-02-10 Completed Unive rsity of Dosage 00:00:00 [facility] PPD (TB) 2010-11-18 Completed University of 00:00:00 [facility] TDAP (ADACEL) 2010-11-18 Completed University of VACCINE 00:00:00 [facility] PPD (TB) 2010-11-18 Completed University of 00:00:00 [facility] TDAP (ADACEL) 2010-11-18 Completed University of VACCINE 00:00:00 [facility] PPD (TB) 2010-11-18 Completed University of 00:00:00 [facility] TDAP (ADACEL) 2010-11-18 Completed University of VACCINE 00:00:00 [facility] HEPATITIS A 2004-03-02 Completed University of 00:00:00 [facility] HEPATITIS A 2004-03-02 Completed University of 00:00:00 [facility] HEPATITIS A 2004-03-02 Completed University of 00:00:00 [facility] HEPATITIS A 2003-08-01 Completed University of 00:00:00 [facility] HEPATITIS A 2003-08-01 Completed University of 00:00:00 [facility] HEPATITIS A 2003-08-01 Completed University of 00:00:00 [facility] Pneumococcal 2001-10-04 Completed University o f Polysaccharide, 00:00:00 [place] [facility] ical PPSV23 (PNEUMOVAX) Branch PPD (TB) 2001-10-04 Completed University of 00:00:00 [facility] Pneumococcal 2001-10-04 Completed University o f Polysaccharide, 00:00:00 [place] [facility] ical PPSV23 (PNEUMOVAX) Branch PPD (TB) 2001-10-04 Completed University of 00:00:00 [facility] Pneumococcal 2001-10-04 Completed University o f Polysaccharide, 00:00:00 [place] [facility] ical PPSV23 (PNEUMOVAX) Branch PPD (TB) 2001-10-04 Completed University of 00:00:00 [facility] Vital Signs Vital Name Observation Time Observation Value Comments Source Systolic blood 2021-12-13 06:39:53 170 mm[Hg] Univer sity of pressure [facility] Diastolic blood 2021-12-13 06:39:53 96 mm[Hg] Unive rsity of pressure [place] [facility] Heart rate 2021-12-13 06:39:53 60 /min [facility] [place] [facility] Respiratory rate 2021-12-13 06:39:53 18 /min Univ ersity of [place] [facility] Oxygen saturation in 2021-12-13 06:39:53 98 /min University of Arterial blood by [facility] Pulse oximetry Branch Body temperature 2021-12-13 04:57:00 36.56 Amina Univ ersity [facility] [place] [facility] Body height 2021-12-13 04:57:00 162.6 cm [facility] [place] [facility] Body weight 2021-12-13 04:57:00 90.719 kg [facility] [place] [facility] BMI 2021-12-13 04:57:00 34.33 kg/m2 [facility] [place] [facility] Systolic blood 2021-08-21 13:13:00 191 mm[Hg] Univer sity of pressure [place] [facility] Diastolic blood 2021-08-21 13:13:00 99 mm[Hg] Unive rsity of pressure [place] [facility] Heart rate 2021-08-21 13:13:00 52 /min [facility] [place] [facility] Body temperature 2021-08-21 13:11:00 36.5 Amina Univ ers[facility] [place] [facility] Respiratory rate 2021-08-21 13:11:00 16 /min Univ ers[facility] [place] [facility] Body height 2021-08-21 13:11:00 162.6 cm [facility] [place] [facility] Body weight 2021-08-21 13:11:00 93.759 kg [facility] [place] [facility] BMI 2021-08-21 13:11:00 35.48 kg/m2 [facility] [place] [facility] Oxygen saturation in 2021-08-21 13:11:00 95 /min University of Arterial blood by [facility] Pulse oximetry Branch Systolic blood 2021-07-14 15:18:00 142 mm[facility]Hg[facility] Diastolic blood 2021-07-14 15:18:00 76 mm[facility]Hg] [facility] Heart rate 2021-07-14 15:18:00 61 [facility] 2021-07-14 15:18:00 [facility]6 [facility] weight 2021-07-14 15:18:[address] [facility] BMI 2021-07-14 15:18:00 35.87 kg/m2 [facility] Systolic blood 2020-12-08 15:48:00 125 mm[Hg] Method [facility] pressure Diastolic blood 2020-12-08 15:48:00 76 mm[Hg] [facility] pressure Heart rate 2020-12-08 15:48:00 64 /min [facility] Body temperature 2020-12-08 15:48:00 36.61 Amina [facility] Respiratory rate 2020-12-08 15:48:00 17 /min [facility] Body height 2020-12-08 15:48:00 162.6 cm [facility] Body weight 2020-12-08 15:48:00 98.884 kg [facility] BMI 2020-12-08 15:48:00 37.42 kg/m2 [facility] Oxygen saturation in 2020-12-08 15:48:00 97 /min [facility] Arterial blood by Pulse oximetry Respitory Rate 2020-08-30 13:00:00 Memori al [place] Systolic (mm Hg) 2020-08-30 13:00:00 Caesar rial [place] Diastolic (mm Hg) 2020-08-30 13:00:00 Mem orial [place] Systolic (mm Hg) 2020-08-30 11:00:00 Caesar rial [place] Diastolic (mm Hg) 2020-08-30 11:00:00 Mem orial [place] Temperature Oral (F) 2020-08-30 11:00:00 98.4 F [facility] Respitory Rate 2020-08-30 11:00:00 Memori al [place] Respitory Rate 2020-08-30 10:00:00 Memori al [place] Systolic (mm Hg) 2020-08-30 10:00:00 Caesar rial [place] Diastolic (mm Hg) 2020-08-30 10:00:00 Mem orial [place] Temperature Oral (F) 2020-08-30 00:00:00 96.9 F [facility] [place] Temperature Oral (F) 2020-08-29 11:26:00 97.6 F [facility] [place] Height 2020-08-29 10:30:00 162.56 cm [facility] Weight 2020-08-29 10:30:00 [facility] BMI Calculated 2020-08-29 10:30:00 Darien Hammond Procedures Procedure Date / Time Performing Clinician Source Performed CT CERVICAL SPINE WO 2021-12-13 05:48:16 SanketBill Kiersten [facility] CONTRAST [facility] CT HEAD WO CONTRAST 2021-12-13 05:48:16 SanketBill [facility] ty [facility] CT LUMBAR SPINE WO 2021-12-13 05:48:16 Sanket[facility] Branch CT THORACIC SPINE WO 2021-12-13 05:48:16 Sanket K Kiersten [facility] ECG 12-LEAD 2021-07-14 15:14:00 Elan Lira [facility] [id number] 2021-06-17 00:00:00 RIKY [facility] GASTROINTESTINAL PANEL 2020-12-08 22:21:00 Yazmin [facility] XR ABDOMEN 1 VW 2020-12-08 18:06:32 Eliseo Glaser [facility] [place] < 1 HOUR 2020-09-05 22:39:00 Eliseo Glaser [facility] SURGICAL PATHOLOGY REQUEST 2020-09-05 21:54:00 Eliseo Glaser [facility] XR CHEST 1 VW PORTABLE 2020-09-05 19:55:00 Eliseo Glaser [facility] DISCHARGE PATIENT 2020-09-05 17:27:55 Lucas Harris [facility] [place] AN ELECTIVE 2020-09-05 16:47:23 [facility], INTRAOPERATIVE 2020-09-05 16:27:00 [facility] 2020-09-05 15:04:00 Sarai Maharaj [facility] TIME (PTT) M. PROTHROMBIN TIME WITH INR 2020-09-05 15:04:00 Mindy Maharaj [facility] M. Plan of Care Planned Activity Planned Date Details Comments Source Future Scheduled 2021-08-26 Screening for [facility] Test 13:02:23 malignant neoplasm of cervix (procedure) [code = 939472307] Future Scheduled 2021-08-26 BREAST CANCER [facility] Test 13:02:23 SCREENING [code = BREAST CANCER SCREENING] Future Scheduled 2021-08-26 COLONOSCOPY SCREENING [facility] Test 13:02:23 [code = COLONOSCOPY SCREENING] Future Scheduled 2021-08-26 Screening for [facility] Test 13:02:23 malignant neoplasm of lung (procedure) [code = 343945777] Future Scheduled 2021-08-26 SHINGLES VACCINES (#1) [facility] Test 13:02:23 [code = SHINGLES VACCINES (#1)] Future Scheduled 2021-08-26 COVID-19 VACCINE (3 - [facility] Test 13:02:23 Pfizer risk 4-dose series) [code = COVID-19 VACCINE (3 - Pfizer risk 4-dose series)] Future Scheduled 2021-08-26 65+ [facility]AL [facility] 13:02:23 VACCINE (4 of 4 - PPSV23) [code = 65+ PNEUMOCOCCAL VACCINE (4 of 4 - PPSV23)] Future Scheduled 2021-08-26 INFLUENZA VACCINE Method [facility] Test 13:02:23 [code = INFLUENZA VACCINE] Encounters Start End Encounter Admission Attending Care Care Encounter Source Date/Time Date/Time Type Type Clinicians Facility Department ID 2021-11-16 Outpatient [facility] [id number] [place] 10:32:47 [id number] [facility] 2021-08-03 Inpatient EDUARDO LundLA OUTD [id number] [facility] 11:30:00 Mike [id number] [facility] 2021-07-14 Outpatient JENNY [facility] [id number] [place] 09:33:51 [facility] 2021-06-16 Inpatient EDUARDO LealLA OUTD [id number] [facility] 08:30:00 Mike [id number] [facility] 2021-06-15 Inpatient EDUARDO LealCL OUTD [id number] [facility] 10:30:00 Mike [id number] [facility] 2022-02-26 2022-02-26 Outpatient Marika [facility] [id number] Univers 08:30:00 08:30:00 SANTIAGO [id number] itcharlie [facility] 2022-02-26 2022-02-26 Outpatient R [facility] [id number] Univers 08:30:00 08:30:00 SANTIAGO itcharlie [facility] 2021-12-12 2021-12-13 Emergency X Bill GUO [facility] ERT [id number] Univers 23:53:00 01:52:00 ity [facility] 2021-12-12 2021-12-13 Emergency Bill Guo [facility] [id number] Univers 23:53:00 01:52:00 Kiersten BULLOCK [id number] i ty of [place] [id number] [id number] [facility] 084 Branch 2021-11-20 2021-11-20 Natural Sciences Department Chair [facility] UNIVERSIT [id number] Univers 09:45:00 10:00:00 Visit Santiago Cardenas [facility] [id number] ity of [facility] [id number] [id number] [facility] 316 Branch 2021-11-20 2021-11-20 Outpatient Marika [facility] [id number] Univers 09:45:00 09:45:00 SANTIAGO barbosa [facility] 2021-11-20 2021-11-20 Outpatient [facility] [id number] Univers 09:45:00 09:45:00 [id number] itcharlie [facility] 2021-08-21 2021-08-21 Office [facility] [id number] Univers 08:30:00 09:00:00 Visit [facility] [id number] i ty of [facility] [id number] [id number] [facility] 089 Branch 2021-08-05 2021-08-05 Outpatient WINTER Leal [id number] [facility] 05:24:00 05:24:00 Mike 31 [facility] 2021-08-05 2021-08-05 Outpatient WINTER Leal OUTD [id number] [facility] 05:24:00 05:24:00 Mike [id number] [facility] 2021-07-14 2021-07-14 Office KIMBERLEY Lira 6400 [id number] [place] 08:45:00 09:34:[address] [id number] Health 9.2.7.2.686 [id number] 2021-07-09 2021-07-09 Telephone Kinjal, UTP 6400 1.2.840.114 [id number] [place] 00:00:00 00:00:[address] [id number] Health 9.2.7.2.686 [id number] 1 2021-06-17 2021-06-17 Inpatient RAUL Lund [facility] INTE.02 [id number] [facility] 10:56:00 14:36:00 Mike [id number] [facility] 2021-06-17 2021-06-17 Inpatient RAUL Lund [facility] INTE.02 [id number] [facility] 10:56:00 14:36:00 Mike 47 [facility] 2021-04-28 2021-04-28 Telephone Yazmin, 1.2.840.0 [id number] Methodi 00:00:00 00:00:[id number] 3.430.2.7 Hospit a .3.132848 l .8 2021-03-31 2021-03-31 Orders Carol Ann, 1.2.840.1 [id number] Methodi 00:00:00 00:00:00 Only Sarai Lieberman 79930.1.1 979 s t 3.430.2.7 Hospit a .3.268663 l .8 2021-03-24 2021-03-24 Telephone Yazmin, 1.2.840.0 [id number] Methodi 00:00:00 00:00:[address] 3.430.2.7 Hospit a .3.039238 l .8 2021-01-19 2021-01-19 Telephone Prabhu, 1.2.840.1 [id number] 2100 [id number] Methodi 00:00:00 00:00:[address] 3.430.2.7 Hospit a .3.303796 l .8 2020-12-12 2020-12-12 Office [facility], [facility] 6400 1.2.840.114 [id number] 07:42:02 08:18:[address] 350.1.13.58 9.2.7.2.686 [id number] 1 2020-12-09 2020-12-09 Telephone Carol Ann, 1.2.840.1 [id number] Methodi 00:00:00 00:00:00 Sarai Lieberman 54605.1.1 316 s t 3.430.2.7 Hospit a .3.108954 l .8 2020-12-08 2020-12-08 [facility], 1.2.840.1 [id number] 2100 [id number] Methodi 12:35:54 23:59:00 Encounter Ray 85545.1.[address] 3.430.2.7 Hospit a .3.335136 l .8 2020-12-08 2020-12-08 [facility], 1.2.840.1 [id number] Methodi 17:25:00 17:30:[address] 3.430.2.7 Hospit a .3.153468 l .8 2020-12-08 2020-12-08 [facility], 1.2.840.1 [id number] Methodi 10:30:00 11:39:56 Visit Ray 51685.1.[address] 3.430.2.7 Hospit a .3.397897 l .8 2020-12-08 2020-12-08 Travel 1.2.840.1 [id number] [id number] Methodi 00:00:00 00:00:[address] 3.430.2.7 0.2.7.3.698 anayta .3.182235 084.8 l .8 2020-12-02 2020-12-02 Natural Sciences Department Chair [facility] 1.2.840.114 [id number] 10:20:06 10:36:19 Visit [facility] [id number] [facility] 4.2.7.2.686 [id number] 2020-11-25 2020-11-25 Office [facility] 1.2.840.114 [id number] 11:06:30 11:58:14 Visit 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 [id number] [facility] 4.2.7.2.686 MATERNAL [id number] & CHILD 107 [facility] 2020-11-25 2020-11-25 [facility] [id number] 00:00:00 00:00:00 [facility] [id number] [facility] 4.2.7.2.686 [id number] 2020-11-25 2020-11-25 Telephone [facility] [id number] 00:00:00 00:00:00 [facility] 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 [id number] [facility] 4.2.7.2.686 MATERNAL [id number] & CHILD 107 [facility] 2020-11-14 2020-11-14 Abstract Clark 1.2.840.1 [id number] Methodi 00:00:00 00:00:[address] 3.430.2.7 Hospit a .3.004406 l .8 2020-11-14 2020-11-14 Telephone Clark 1.2.840.1 [id number] Methodi 00:00:00 00:00:[address] 3.430.2.7 Hospit a .3.340891 l .8 2020-11-07 2020-11-07 Telephone Diana, KIMBERLEY 6400 1.2.840.114 [id number] 00:00:00 00:00:[address] 350.1.13.58 9.2.7.2.686 [id number] 1 2020-10-27 2020-10-27 Telephone Yazmin, 1.2.840.2 [id number] 21 [id number] Methodi 00:00:00 00:00:[address] 3.430.2.7 Hospit a .3.471202 l .8 2020-10-24 2020-10-24 Telephone Clark, 1.2.840.1 [id number] 2100 [id number] Methodi 00:00:00 00:00:[address] 3.430.2.7 Hospit a .3.681693 l .8 2020-10-06 2020-10-12 Telemedici [facility], 1.2.840.1 [id number] Methodi 15:30:00 00:08:46 ne Ray 18007.1.[address] 3.430.2.7 Hospit a .3.066995 l .8 2020-09-30 2020-09-30 Telephone Yazmin, 1.2.840.2 [id number] 21 [id number] Methodi 00:00:00 00:00:[address] 3.430.2.7 Hospit a .3.244815 l .8 2020-09-21 2020-09-21 Travel 1.2.840.1 1.2.209.075 7789 [id number] Methodi 00:00:00 00:00:[address] 3.430.2.7 0.2.7.3.698 Ho spita .3.685939 084.8 l .8 2020-09-06 2020-09-06 [facility] 1.2.840.1 [id number] 00035 Methodi 17:42:30 23:59:[address] 3.430.2.7 Hospit a .3.647670 l .8 2020-09-06 2020-09-06 [facility], 1.2.840.1 [id number] 2099 [id number] Methodi 16:50:00 17:41:00 Encounter Ray [address].1.[address] 3.430.2.7 Hospit a .3.943889 l .8 2020-09-05 2020-09-05 [facility], 1.2.840.1 [id number] 2099 278205 Methodi 09:17:00 19:45:00 Encounter Ray [address]861.1.[address] 3.430.2.7 Hospit a .3.043843 l .8 2020-09-05 2020-09-05 [facility], 1.2.840.1 [id number] 16091 Methodi 11:30:00 13:15:[address] 3.430.2.7 Hospit a .3.871952 l .8 2020-09-05 2020-09-05 Anesthesia [facility], 1.2.840.1 [id number] 478 [id number] Methodi 11:27:00 12:20:00 Event Kirit 73731.1.1 243 s t V. 3.430.2.7 Hospit a .3.946139 l .8 2020-09-05 2020-09-05 Travel 1.2.840.1 1.2.122.234 3433 932872 Methodi 00:00:00 00:00:[address] 3.430.2.7 0.2.7.3.698 Ho spita .3.496053 084.8 l .8 2020-09-04 2020-09-04 Telephone [place], 1.2.840.1 [id number] Methodi 00:00:00 00:00:00 Sarai CorbinChelsie 87890.1.1 762 s t 3.430.2.7 Hospit a .3.551796 l .8 2020-09-02 2020-09-02 Telephone Carol Ann, 1.2.840.8 [id number] Methodi 00:00:00 00:00:00 Sarai Lieberman 57687.1.1 344 s t 3.430.2.7 Hospit a .3.744415 l .8 2020-08-29 2020-08-30 Bedded [facility] [id number] [facility] 10:20:00 14:10:00 Outpatient r [facility] 00 l [facility] 2020-08-29 2020-08-30 Outpatient HEM[facility], [facility] CAR [address] [facility] 05:20:00 09:10:00 [place] Results Test Description Test Time Test Comments Results Result Comments Source Novel Coronavirus 2018 Inhouse 2021-08-03 18:08:00 Test Item Value Reference Range Interpretation Comme nts Novel Coronavirus 2018 Negative Negative Posit bruno results are indicative of the Inhouse (test code = presenc e djMVJT-ZlT-4 RNA, clinical COVNONPUI) correlation wit h patient [...] qualitative detection of nucleic acid s from ojpIJKO-BwK-3 virus and diagn osis of SARS-CoV-2 virusinfection. It is an Emergency Use Authorization ( EUA) testauthorized by the U.S. FDA. BASIC METABOLIC [id number] 09:37:00 Test Item Value Reference Range Interpretation [...] = 9.0 mg/dL 8.0-10.5 N CA) PROTHROMBIN [id number] 09:32:00 Test Item Value Reference Range Interpretation [...] o prevent recurre nt infarct). 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 FAX: Jean Paul Scales MD [phone] FAX: Bahman Chopra [phone] Name: LIO WATTS [facility] : 1955 Age/S: 66/F [address] [place] [address] Unit #: [id number] Loc: [place] [address] Phys: Bahman Chopra Acct: [id number] Dis Date: Status:ADM IN PHONE #: [phone] Exam Date: 06/17/2021 1320 FAX #: [phone] Reason: WATCHMAN EXAMS: CPT CODE: [id number] XR CHEST 1 V 57716 PROCEDURE INFORMATION: Exam: XR Chest Examdate and [...] failure/volume loading. 2. Subsegmental atelectasis bilateral. at 1336 Reported and signed by: Lambert Vega M.D. CC: Lele Rahman DO; Mike Lund MD; Bahman Chopra Technologist: RT Taylor(R) Trnscrd Date/Time/By: 06/17/2021 (5958) : By: Susanna Orig Print D/T: S: 06/17/2021 (3719) PAGE 1 Signed ReportCOVID 19 Asymptomatic IH [id number] 12:29:00 Test Item Value Reference Range Interpretation [...] high or waivedcomplexit y tests. BASIC METABOLIC [id number] 11:37:00 Test Item Value Reference Range Interpretation [...] code = 9.0 mg/dL 8.0-10.5 N CA) [id number] 11:37:00 Test Item Value Reference Range Interpretation Comments PREALBUMIN (test code = PREALB) 24.3 mg/dL 16.0-40.0 N PROTHROMBIN [id number] 11:03:00 Test Item Value Reference Range Interpretation [...] o prevent recurre nt infarct). CBC W/AUTO [id number] 10:59:00 Test Item Value Reference Range Interpretation [...] 3/uL 0.0-0.1 N NRBC#) - CHEST 2 [id number] 00:00:00 [facility] 1955 Sex: F FAX: Lele Olivera [phone] Swisher: St: PRE FAX: Jean Paul Scales MD [phone] Name: LIO WATTS [facility] : 1955 Age/S: 66/F [address] [place] [address] Blvd Unit #: [id number] Loc: [place] [address] Phys: [facility] [id number] Dis Date: Status: PRE [facility] PHONE #: [phone] Exam Date: 06/16/20211119 FAX #: [phone] Reason: PREOP EXAMS: CPT CODE: [id number] XR CHEST 2 V 99317 PROCEDURE INFORMATION: Exam: XR Chest Exam date [...] MD Technologist: RT Andree(R) Trnbob Date/Time/By: 06/16/2021 (3592) : By: [email or web address] Orig Print D/T: S: 06/16/2021 (7711) PAGE 1 Signed ReportGastrointestinal [id number] 04:35:05 Test Item Value Reference Interpretation Comments [...] Rotavirus PCR (test Not Detected code = 8398627) Salmonella PCR (test Not Detected code = [...] PCR Not Detected (test code = 7124) [facility] clfkqha0561-67-66 19:30:47 Test Item Value Reference Range Interpretation Comments Case number (test [id number] code = 9572308) Surgical pathology See link below for PDF report (test code = Lab Report 2255) Result status (test This is Supplemental code = 8926424) Report for [id number] [facility] CenterYaoseevmOPMSVHUXRG7338-95-25 16:31:00 Test Item Value Reference Range Interpretation Comments POC Activated Clotting Time (test code 153 s = POC Activated Clotting Time) [facility] HospitalIemhbplVKWYLGCHQZ5225-17-07 16:31:00 Test Item Value Reference Range Interpretation Comments POC Activated Clotting Time (test code 153 s = POC Activated Clotting Time) [facility] HospitalYtmunroBBAIEUWBEB5149-97-91 16:31:00 Test Item Value Reference Range Interpretation Comments POC Activated Clotting Time (test code 153 s = POC Activated Clotting Time) [facility] HospitalIapmaqnYUGCEPTATI7106-10-70 16:31:00 Test Item Value Reference Range Interpretation Comments POC Activated Clotting Time (test code 153 s = POC Activated Clotting Time) [facility] HospitalMcjygusKTWLFPRRQW1630-16-79 16:31:00 Test Item Value Reference Range Interpretation Comments POC Activated Clotting Time (test code 153 s = POC Activated Clotting Time) [facility] HospitalMlhjqjqEHUWMQSCIQ6225-62-61 16:31:00 Test Item Value Reference Range Interpretation Comments POC Activated Clotting Time (test code 153 s = POC Activated Clotting Time) [place] 030291-04-09 16:31:00 Test Item Value Reference Range Interpretation Comments POC Activated Clotting Time (test code 153 s = POC Activated Clotting Time) [facility] HospitalPmrwwfyJFBDPTATIQ5403-36-35 14:37:00 Test Item Value Reference Range Interpretation Comments POC Activated Clotting Time (test code 454 s = POC Activated Clotting Time) [facility] HospitalZixznbjDZDGSLAFFP9152-70-55 14:37:00 Test Item Value Reference Range Interpretation Comments POC Activated Clotting Time (test code 454 s = POC Activated Clotting Time) [facility] HospitalDgyflrqRUILROSUUC0819-28-27 14:37:00 Test Item Value Reference Range Interpretation Comments POC Activated Clotting Time (test code 454 s = POC Activated Clotting Time) [facility] HospitalQmtyuzvHXXRZSLVOQ5804-28-71 14:37:00 Test Item Value Reference Range Interpretation Comments POC Activated Clotting Time (test code 454 s = POC Activated Clotting Time) [facility] HospitalEqzphfwVBVKCRTAKD6658-95-21 14:37:00 Test Item Value Reference Range Interpretation Comments POC Activated Clotting Time (test code 454 s = POC Activated Clotting Time) [facility] HospitalAhyukiuHMXRWVIEEV1384-44-98 14:37:00 Test Item Value Reference Range Interpretation Comments POC Activated Clotting Time (test code 454 s = POC Activated Clotting Time) [facility] HospitalZvpwwbjEKWEHDLKGL7439-82-13 14:37:00 Test Item Value Reference Range Interpretation Comments POC Activated Clotting Time (test code 454 s = POC Activated Clotting Time) [facility] HospitalOyzfimsWHYQLJEOTQ2003-09-56 14:13:00 Test Item Value Reference Range Interpretation Comments POC Activated Clotting Time (test code 354 s = POC Activated Clotting Time) [facility] HospitalIgtykusEQWDGESETI1453-68-45 14:13:00 Test Item Value Reference Range Interpretation Comments POC Activated Clotting Time (test code 354 s = POC Activated Clotting Time) [facility] HospitalXlsueufTNXBBNARFC4575-32-04 14:13:00 Test Item Value Reference Range Interpretation Comments POC Activated Clotting Time (test code 354 s = POC Activated Clotting Time) [facility] HospitalAyodeogCBGUSMFUNL3735-68-04 14:13:00 Test Item Value Reference Range Interpretation Comments POC Activated Clotting Time (test code 354 s = POC Activated Clotting Time) [facility] HospitalWlnucgaDABPVFVAWS2007-99-26 14:13:00 Test Item Value Reference Range Interpretation Comments POC Activated Clotting Time (test code 354 s = POC Activated Clotting Time) [facility] HospitalVeecixoLBIFFUIQJR0847-41-10 14:13:00 Test Item Value Reference Range Interpretation Comments POC Activated Clotting Time (test code 354 s = POC Activated Clotting Time) [facility] HospitalEzzouaeFBHLFJMMJF4832-82-87 14:13:00 Test Item Value Reference Range Interpretation Comments POC Activated Clotting Time (test code 354 s = POC Activated Clotting Time) [facility] EKCWMGU2718-21-89 10:37:00Negative (08/29/20 5:37 AM) [facility] HermannCHEM KSQKG0819-41-61 10:37:17569Oxufjoyx HermannCHEM PANEL 2020-08-29 10:37:0028[facility] HermannCHEM KAKAS0690-77-11 10:37:001.01[facility] HermannCHEM IMNOP0897-20-03 10:37:60745Zpirgzhc HermannCHEM SGBNQ0870-88-84 10:37:003.8[facility] HermannCHEM NCXBC3895-45-37 10:37:04955Fivkwxhv HermannCHEM RNLBA1707-63-53 10:37:0028[facility] HermannCHEM MDWQJ1365-24-46 10:37:009.8 [facility] HermannCHEM BAFUP8892-97-71 10:37:0011.8[facility] HermannCHEM PANEL 2020-08-29 10:37:0059[facility] HermannCHEM QWJCG3410-51-28 10:37:002.9[facility] JknxsvrFAEIVFHNLH9831-01-71 10:37:006.8[facility] HoywikzLFWWLABNWA1491-21-92 10:37:004.47[facility] GuvffdtJURBCUVKDG5682-40-10 10:37:0010.6[facility] VAJGDAIGLZ8816-53-40 10:37:0034.0[facility] AnoduqgSXSUOWDBCU9641-04-80 10:37:00 76.1[facility] TiiocrtTYXIYQSPAB8960-52-98 10:37:00 Test Item Value Reference Range Interpretation Comments MCH (test code = MCH) 23.8 pg 27.0-31.0 Memorial TvhiitnSWPDJGKVQW6318-96-54 10:37:0031.3[facility] HermannHEMATOLOGY 2020-08-29 10:37:0018.2[facility] OescewjQLVVNUAMJY8378-67-50 10:37:50423Izupwexi KlvkfgvRCYSMRXALF3196-00-01 10:37:007.5[facility] RmjbaiaZMSCFJOQCX6360-77-91 10:37:00 Test Item Value Reference Range Interpretation Comments PT (test code = PT) 12.8 s 12.0-14.7 Memorial YmxdznzXTKBBVDJYC8373-88-39 10:37:00 Test Item Value Reference Range Interpretation Comments INR (test code = INR) 0.97 1 0.85-1.17 [facility] FnzaxfbYIVOMPWUMB0422-45-79 10:37:00 Test Item Value Reference Range Interpretation Comments PTT (test code = PTT) 25.0 s 22.9-35.8 [facility] RtbpitiJQYXURXHBA1932-55-80 10:37:0070.5[facility] HermannHEMATOLOGY 2020-08-29 10:37:0018.8[facility] ClxaffyLRAZJHEEPE2035-61-17 10:37:009.5[facility] XlbbljyQYLNMTVNAB1119-75-02 10:37:000.9[facility] BznzujgPSAYPNWXUJ0583-87-77 10:37:000.3[facility] SfqacnuYTGFBOZADH6536-81-31 10:37:004.8[facility] XICKTKWTLQ3041-63-51 10:37:001.3[facility] XcvpgslZLLCZXXXGC1562-66-88 10:37:000.6 Memorial WzzybouAKHMHQGXQD6237-52-50 10:37:000.1[facility] HermannHEMATOLOGY 2020-08-29 10:37:001+ *ABN*(08/29/20 5:37 AM)[facility] VjbagmoEXNREBZPZJ2648-32-61 10:37:00Not Detected (08/29/20 5:37 AM)[facility] HermannBLOOD BANK RESULTS 2020-08-29 10:37:00Negative (08/29/20 5:37 AM)[facility] HermannCHEM JKZQI6111-00-56 10:37:21129Buskjnii HermannCHEM ZIELO2901-82-11 10:37:0028[facility] HermannCHEM RFXBX6273-25-10 10:37:001.01[facility] HermannCHEM KBPIF0433-25-63 10:37:99796 [facility] HermannCHEM MEQZT6381-13-28 10:37:003.8[facility] HermannCHEM PANEL 2020-08-29 10:37:86328Vvsirgle HermannCHEM PDQJP8022-16-80 10:37:0028[facility] HermannCHEM GWEAW0661-50-65 10:37:009.8[facility] HermannCHEM TGRIL0025-28-93 10:37:0011.8[facility] HermannCHEM GKNQY5076-36-13 10:37:0059[facility] HermannCHEM WCCYE4475-19-24 10:37:002.9[facility] BgljxqiXKLBELPPKH1246-44-88 10:37:006.8 [facility] WeruoloBVICGQLDFW8895-23-28 10:37:004.47[facility] HermannHEMATOLOGY 2020-08-29 10:37:0010.6[facility] LdwwfnwBQZHJTSMWZ3141-31-04 10:37:0034.0[facility] NzdwnihTVAMEHKAHD0157-73-42 10:37:0076.1[facility] TkryuerWLUKAITBXR3044-66-91 10:37:00 Test Item Value Reference Range Interpretation Comments MCH (test code = MCH) 23.8 pg 27.0-31.0 [facility] XzsvxmsTZMWAMLLGA9433-13-73 10:37:0031.3[facility] HermannHEMATOLOGY 2020-08-29 10:37:0018.2[facility] ByutzfnKZLWDLXHJW8505-44-22 10:37:35996Hmahqmiz RbbynewFXLOLQOESL7225-31-40 10:37:007.5[facility] HenjqftSCQUYFTJDE4933-86-80 10:37:00 Test Item Value Reference Range Interpretation Comments PT (test code = PT) 12.8 s 12.0-14.7 [facility] BmqfiatPTLZWARLMA6079-87-29 10:37:00 Test Item Value Reference Range Interpretation Comments INR (test code = INR) 0.97 1 0.85-1.17 [facility] CmqopeoNKIOPMDNRO9926-64-70 10:37:00 Test Item Value Reference Range Interpretation Comments PTT (test code = PTT) 25.0 s 22.9-35.8 [facility] LqoeljtPMRWEDNAEQ7911-07-27 10:37:0070.5[facility] HermannHEMATOLOGY 2020-08-29 10:37:0018.8[facility] TkmgqcwYWHFYROFFL5386-93-47 10:37:009.5[facility] PndmumbACTDCSTPRQ1673-90-86 10:37:000.9[facility] ImgtkqaKRTNCBXFIL2905-98-41 10:37:000.3[facility] EpultokFQFLWCCWBZ4641-98-00 10:37:004.8[facility] MDXGFBJYAU7289-39-80 10:37:001.3[facility] HumhqebJXIZGJWQKQ1319-74-03 10:37:000.6 [facility] IuoovrmQGCYLSJUSE1165-90-37 10:37:000.1[facility] HermannHEMATOLOGY 2020-08-29 10:37:001+ *ABN*(08/29/20 5:37 AM)[facility] QrtdlzyYVQSWJTKQF0036-88-77 10:37:00Not Detected (08/29/20 5:37 AM)[facility] HermannBLOOD BANK RESULTS 2020-08-29 10:37:00Negative (08/29/20 5:37 AM)[facility] HermannCHEM LWOJF4239-34-72 10:37:07484Rmptvzam HermannCHEM AUZRZ9661-02-99 10:37:0028[facility] HermannCHEM RRKGA5052-66-61 10:37:001.01[facility] HermannCHEM NZFAC0245-38-21 10:37:06113 [facility] HermannCHEM OECGI0010-60-25 10:37:003.8[facility] HermannCHEM PANEL 2020-08-29 10:37:99343Wcokghjw HermannCHEM QALNE3254-52-96 10:37:0028[facility] HermannCHEM LSHXN4000-00-76 10:37:009.8[facility] HermannCHEM WYCBJ2245-09-18 10:37:0011.8[facility] HermannCHEM ZQBZI7795-27-63 10:37:0059[facility] HermannCHEM LVIUT9511-55-91 10:37:002.9[facility] IpfvbbtDEYAZKYRLS5826-03-38 10:37:006.8 [facility] HfjcmefBKDBUASGNR7292-78-07 10:37:004.47[facility] HermannHEMATOLOGY 2020-08-29 10:37:0010.6[facility] VplcibyHIEOFBZGTF3506-04-96 10:37:0034.0[facility] PqkueiuCMJRVJFEAG1504-62-19 10:37:0076.1[facility] ZivnplxRSSADNMARW5518-28-29 10:37:00 Test Item Value Reference Range Interpretation Comments MCH (test code = MCH) 23.8 pg 27.0-31.0 [facility] ZtusvcdHRDEJCOYVI1986-21-92 10:37:0031.3[facility] HermannHEMATOLOGY 2020-08-29 10:37:0018.2[facility] SifzewuDXVNUKEYME5977-84-45 10:37:98157Mgfdzbdk CfjpgohXKLGOAGBTS9333-01-65 10:37:007.5[facility] EahbmqqXVMCBKJKXB4799-19-73 10:37:00 Test Item Value Reference Range Interpretation Comments PT (test code = PT) 12.8 s 12.0-14.7 [facility] PlgibskYZHPSEGNVZ9230-91-02 10:37:00 Test Item Value Reference Range Interpretation Comments INR (test code = INR) 0.97 1 0.85-1.17 [facility] SjpsiapAOVNEBMCZV7448-47-61 10:37:00 Test Item Value Reference Range Interpretation Comments PTT (test code = PTT) 25.0 s 22.9-35.8 [facility] GxgwoyiNESMRZTHPH6756-78-59 10:37:0070.5[facility] HermannHEMATOLOGY 2020-08-29 10:37:0018.8[facility] IcuyxqeBVUIIQQXNG5955-92-80 10:37:009.5[facility] RgbymlqPPNZUFEWKP7451-12-74 10:37:000.9[facility] HtbwougSQONOGXOVE1211-95-78 10:37:000.3[facility] WrljmjhLJKOMIPEAC6676-76-94 10:37:004.8[facility] [place] DLEHZLXZSH9826-84-38 10:37:001.3[facility] KgaygfiKGYPRWJHON4225-48-20 10:37:000.6 [facility] NbxdxotAHXBWGDPJT2759-94-38 10:37:000.1[facility] HermannHEMATOLOGY 2020-08-29 10:37:001+ *ABN*(08/29/20 5:37 AM)[facility] DqlmeycAUVVWBVJXC9896-74-46 10:37:00Not Detected (08/29/20 5:37 AM)[facility] HermannBLOOD BANK RESULTS 2020-08-29 10:37:00Negative (08/29/20 5:37 AM)[facility] HermannCHEM QEKSJ0406-26-33 10:37:43592Trpdgxlu HermannCHEM XJVZI0632-19-51 10:37:0028[facility] HermannCHEM JYAKE7718-70-84 10:37:001.01[facility] HermannCHEM JLWWD2546-14-52 10:37:46086 [facility] HermannCHEM DVVMM8017-25-57 10:37:003.8[facility] HermannCHEM PANEL 2020-08-29 10:37:59280Cxtfvcmi HermannCHEM LCERS1054-86-26 10:37:0028[facility] HermannCHEM ALOMV9980-01-99 10:37:009.8[facility] HermannCHEM OIEQL1589-95-09 10:37:0011.8[facility] HermannCHEM PUGMD5081-72-95 10:37:0059[facility] HermannCHEM XJVUL5247-40-02 10:37:002.9[facility] KfnlzhvKVYTRLADPI1347-06-08 10:37:006.8 [facility] TdeknfqLBPXWAIBMQ0752-62-70 10:37:004.47[facility] HermannHEMATOLOGY 2020-08-29 10:37:0010.6[facility] SwwqxcfJUYOPUNUNB8926-90-18 10:37:0034.0[facility] UvdqqbxABMBGZMGQH7865-99-53 10:37:0076.1[facility] WqbbtajPQYPFWZPOQ3066-05-39 10:37:00 Test Item Value Reference Range Interpretation Comments MCH (test code = MCH) 23.8 pg 27.0-31.0 [facility] YwhyydiRQNDWFIPDN2869-42-52 10:37:0031.3[facility] HermannHEMATOLOGY 2020-08-29 10:37:0018.2[facility] QyhzjmfLGYQIOMEBG1320-83-04 10:37:13645Lxggjpgn OlmbkgmOVNXWUCKKC2931-41-59 10:37:007.5[facility] CcpwaboNGTLLBMHFW5275-85-77 10:37:00 Test Item Value Reference Range Interpretation Comments PT (test code = PT) 12.8 s 12.0-14.7 [facility] MlcqapzHPNATWODUW3140-34-88 10:37:00 Test Item Value Reference Range Interpretation Comments INR (test code = INR) 0.97 1 0.85-1.17 [facility] QiqacxnLYREXVEEBN7801-30-48 10:37:00 Test Item Value Reference Range Interpretation Comments PTT (test code = PTT) 25.0 s 22.9-35.8 [facility] HpcjccnBHJBSPDMNI0306-16-53 10:37:0070.5[facility] HermannHEMATOLOGY 2020-08-29 10:37:0018.8[facility] VznvheiWUYYRZTOXM6931-35-12 10:37:009.5[facility] RdfwrmzHLYUCWQBEB9075-93-59 10:37:000.9[facility] QfvwqteBKWLNWXULZ6186-42-26 10:37:000.3[facility] GhhljyeLVLFPTGNNP1265-80-53 10:37:004.8[facility] [place] JAUAHEHPAD6447-19-25 10:37:001.3[facility] PjosdihRNQARRDXEK9599-67-80 10:37:000.6 [facility] EermahyWEPCGQQOBB8333-77-20 10:37:000.1[facility] HermannHEMATOLOGY 2020-08-29 10:37:001+ *ABN*(08/29/20 5:37 AM)[facility] FpffrtsIUWYLPGIQJ2024-52-84 10:37:00Not Detected (08/29/20 5:37 AM)[facility] HermannBLOOD BANK RESULTS 2020-08-29 10:37:00Negative (08/29/20 5:37 AM)[facility] HermannCHEM BDANA2795-95-57 10:37:90209Rzquwahw HermannCHEM JXHNC2033-62-28 10:37:0028[facility] HermannCHEM XEMNI3281-57-15 10:37:001.01[facility] HermannCHEM PDMTH2764-30-22 10:37:32043 [facility] HermannCHEM QWVHH8009-81-12 10:37:003.8[facility] HermannCHEM PANEL 2020-08-29 10:37:32330Ssutnsjo HermannCHEM IRPFR3717-29-08 10:37:0028[facility] HermannCHEM YHXFH4880-54-46 10:37:009.8[facility] HermannCHEM ACVRN7827-65-91 10:37:0011.8[facility] HermannCHEM CAPZU4030-19-50 10:37:0059[facility] HermannCHEM MDUGE0486-16-99 10:37:002.9[facility] BetnivkKAOZWIXZRH0905-94-26 10:37:006.8 [facility] BbnacdxCRFOEUVRUE9323-14-41 10:37:004.47[facility] HermannHEMATOLOGY 2020-08-29 10:37:0010.6[facility] LpqwbkaWFEVLOWEKB9347-96-73 10:37:0034.0[facility] ZbvmmlkGLJXPXUJBJ1344-44-69 10:37:0076.1[facility] YntpxizMJRSNRPFAM3498-58-18 10:37:00 Test Item Value Reference Range Interpretation Comments MCH (test code = MCH) 23.8 pg 27.0-31.0 [facility] MkfkhuoEZTGJPNKLE9675-16-05 10:37:0031.3[facility] HermannHEMATOLOGY 2020-08-29 10:37:0018.2[facility] EdpqlclDYOPRPLVXC9245-94-20 10:37:31079Zaihspoe DtpgqwcLJIJYEICHB7517-22-08 10:37:007.5[facility] LfjcgawARAFTQFOZV4306-12-78 10:37:00 Test Item Value Reference Range Interpretation Comments PT (test code = PT) 12.8 s 12.0-14.7 [facility] NlcdqpfJTQVXXRYGT9299-20-87 10:37:00 Test Item Value Reference Range Interpretation Comments INR (test code = INR) 0.97 1 0.85-1.17 [facility] BuemvncLKENAGJNAN1414-85-53 10:37:00 Test Item Value Reference Range Interpretation Comments PTT (test code = PTT) 25.0 s 22.9-35.8 [facility] CpbxmkgMFPMRGQCUF0199-15-92 10:37:0070.5[facility]annHEMATOLOGY 2020-08-29 10:37:0018.8[facility] IqeofqdUAWFOPVHVC0656-91-07 10:37:009.5[facility] AyavtrbOKAPEWGDNO4703-67-65 10:37:000.9[facility] NwibemsVOULXXIEAP3402-63-52 10:37:000.3[facility] WhwgctvKVQGZQXNDN5725-53-39 10:37:004.8[facility] GYCZRJNTVM4228-85-54 10:37:001.3[facility] NopskysCSIBYNWKNR3217-29-42 10:37:000.6 [facility] VfoiaocSLJHGJRXOD0196-85-95 10:37:000.1[facility]annHEMATOLOGY 2020-08-29 10:37:001+ *ABN*(08/29/20 5:37 AM)[facility] ZyawpniXFHZLVFUSF8207-26-58 10:37:00Not Detected (08/29/20 5:37 AM)[facility]annBL[facility]OD BANK RESULTS 2020-08-29 10:37:00Negative (08/29/20 5:37 AM)[facility]annCHEM BCRIN4304-57-21 10:37:94871Ssbqszah HermannCHEM FARIX2084-08-25 10:37:0028[facility]annCHEM PABTR7801-96-57 10:37:001.01[facility]annCHEM XYUVN1543-65-77 10:37:66793 [facility]annCHEM HBMVN3147-93-55 10:37:003.8[facility]annCHEM PANEL 2020-08-29 10:37:11489Jhkznlqp HermannCHEM XFSUS6674-88-39 10:37:0028[facility]annCHEM DIKXM9088-48-51 10:37:009.8[facility] HermannCHEM INLDO8860-07-89 10:37:0011.8[facility]annCHEM OZMNA7234-83-72 10:37:0059[facility]annCHEM RKZRG4988-59-85 10:37:002.9[facility] ZhpnhroNGQVZCCKVD6142-70-97 10:37:006.8 [facility] ItdddjoJXQEDJSIOU8449-07-69 10:37:004.47[facility]annHEMATOLOGY 2020-08-29 10:37:0010.6[facility] JhjmldmMDFUXGXHEH4237-95-05 10:37:0034.0[facility] XifjghaQSTOJMHEJG8113-99-46 10:37:0076.1[facility] FuqzoocQKXEECKSPU4461-98-14 10:37:00 Test Item Value Reference Range Interpretation Comments MCH (test code = MCH) 23.8 pg 27.0-31.0 [facility] GsxghaqPHXCHZDIFC0068-13-27 10:37:0031.3[facility]annHEMATOLOGY 2020-08-29 10:37:0018.2[facility] BzrsetrISLDRQYIEI7838-32-47 10:37:33150Ubqeuzht WuncqpuKFCRCVAWAJ9699-01-05 10:37:007.5[facility] RdcbfybUTVQQJQAHI7788-50-06 10:37:00 Test Item Value Reference Range Interpretation Comments PT (test code = PT) 12.8 s 12.0-14.7 [facility] QsiwseeLVDYNNNLPV8730-89-17 10:37:00 Test Item Value Reference Range Interpretation Comments INR (test code = INR) 0.97 1 0.85-1.17 [facility] PyinqsfETUBAFWUZE0138-69-60 10:37:00 Test Item Value Reference Range Interpretation Comments PTT (test code = PTT) 25.0 s 22.9-35.8 [facility] DfdkjkoZZNCWQRJUF9726-98-61 10:37:0070.5[facility]annHEMATOLOGY 2020-08-29 10:37:0018.8[facility] WswgjtlFJQMIBJBWD8345-44-03 10:37:009.5[facility] DzdorwjNHHTOFRYDL6399-16-66 10:37:000.9[facility] MpvvyxjINTANIUJXC6115-38-97 10:37:000.3[facility] HmbabjsFRNOBRBLYA6802-64-52 10:37:004.8[facility] PEEEJTLUNL8693-80-56 10:37:001.3[facility] ImkzsqfYRRRSJMMYZ8125-38-83 10:37:000.6 [facility] RetsageTRMXXLDHRC9090-99-48 10:37:000.1[facility]annHEMATOLOGY 2020-08-29 10:37:001+ *ABN*(08/29/20 5:37 AM)[facility] GichwqqIDVZZWZMNO9319-11-12 10:37:00Not Detected (08/29/20 5:37 AM)[facility]annBLOOD BANK RESULTS 2020-08-29 10:37:00Negative (08/29/20 5:37 AM)[facility]annCHEM RUVNT9501-70-87 10:37:55537Dgzisjcw HermannCHEM UITQJ5631-11-37 10:37:0028[facility]annCHEM TMQJS6070-14-10 10:37:001.01[facility]annCHEM [id number] 10:37:46947 [facility] PKLFQ2023-10-34 10:37:003.8[facility]annCHEM PANEL 2020-08-29 10:37:72777Afokcmww HermannCHEM OPSUK7479-85-31 10:37:0028[facility]annCHEM QVGXH3598-48-80 10:37:009.8[facility]annCHEM NNVNQ8049-70-75 10:37:0011.8[facility]annCHEM AQYTF3413-45-59 10:37:0059[facility]annCHEM HYEKI1847-52-53 10:37:002.9[facility] OyrgezcDIPXULDSEB7320-08-68 10:37:006.8 [facility] RatbsbyJKUSUALZGQ8181-06-22 10:37:004.47[facility] HermannHEMATOLOGY 2020-08-29 10:37:0010.6[facility] QalbvhcRVQMVTOWYL8162-69-84 10:37:0034.0[facility] WdtbdojJINXZGUGRN9898-78-33 10:37:0076.1[facility] OijxcllQWTTEQWJGM3003-14-24 10:37:00 Test Item Value Reference Range Interpretation Comments MCH (test code = MCH) 23.8 pg 27.0-31.0 [facility] RmmaagjFKVNDFZOAQ6404-19-65 10:37:0031.3[facility]annHEMATOLOGY 2020-08-29 10:37:0018.2[facility] VxtlersGOXOCJVGTV2042-76-09 10:37:51532Fovbuxfn IumdrnrMZSLIHXCUS3337-19-47 10:37:007.5[facility] DlijdomLDMXMAUOPT4020-71-35 10:37:00 Test Item Value Reference Range Interpretation Comments PT (test code = PT) 12.8 s 12.0-14.7 [facility] KckaanpRHOOQVDUHF8146-65-31 10:37:00 Test Item Value Reference Range Interpretation Comments INR (test code = INR) 0.97 1 0.85-1.17 [facility] DtcnmbqFALWELVKRF6807-06-76 10:37:00 Test Item Value Reference Range Interpretation Comments PTT (test code = PTT) 25.0 s 22.9-35.8 [facility] RvsrcxiUYYNVVWLSW0313-02-61 10:37:0070.5[facility]annHEMATOLOGY 2020-08-29 10:37:0018.8[facility] OwvbkmtSGDRVUHTAH7730-52-18 10:37:009.5[facility] MpctxtxYNOTKDAMFR4812-41-17 10:37:000.9[facility] ImwxnntMDHAGEYLOH9441-28-12 10:37:000.3[facility] MwzzcihFFMOGXUNPK0335-10-34 10:37:004.8[facility] FOSKMWYNQS0526-63-81 10:37:001.3[facility] QzkybsbGGMUHOSYSY9993-02-26 10:37:000.6 [facility] LliwfwxPELBZRIFRS3522-12-38 10:37:000.1[facility] HermannHEMATOLOGY 2020-08-29 10:37:001+ *ABN*(08/29/20 5:37 AM)[facility] KeupkhhZZUWWWCFNI4488-12-95 10:37:00Not Detected (08/29/20 5:37 AM)[facility],PCR, IN [id number] 15:38:00 Test Item Value Reference Range Interpretation Comments FT (test code = CHTR) Not detected (qualifier Not Detected N value) FT (test code = Not detected (qualifier Not Detected N NGONO) value) FT (test code = TRVG) Not detected (qualifier Not Detected N value) URINALYSIS WITH OIRXQTCKVNW3799-24-40 10:57:00 Test Item Value Reference Range Interpretation Comments Color (test code = UCOLR) Dk. Yellow Clarity (test code = UCLAR) Hazy Glucose (test code = UGLUC) NEGATIVE NEGATIVE N Bilirubin (test code = UBILI) NEGATIVE NEGATIVE N Ketones (test code = UKET) NEGATIVE NEGATIVE N Specific [place] (test code = 1.025 1.005-1.030 A [...]
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
[2021-12-15] MEDS ORDERED: IBUPROFEN 400 MG TAB ONE (23:22)
[2021-12-15 23:56] VITALS: BP 138/99; O2SAT 100
[2021-12-15 23:58] VITALS: TEMP 98.2
== END 2021-12-15 23:27 | disposition home or self-care (01) ==
LOC: ER 19:56
DX: L55.0 Sunburn of first degree (principal); R51.9 Headache, unspecified; Z88.1 Allergy status to other antibiotic agents; Z88.2 Allergy status to sulfonamides; Z88.5 Allergy status to narcotic agent; Z88.6 Allergy status to analgesic agent; Z88.8 Allergy status to other drugs, medicaments and biological substances
CPT/HCPCS: 99283

== ENCOUNTER 2021-12-24 10:48 | Emergency (ER) | payer OTHER ==
--- NOTE | 2021-12-24 12:51 | EDPHYS ---
Physician Documentation [facility] Name: Fawn Fleming Age: 66 yrs Sex: Female : 1955 Arrival Date: 12/24/2021 Time: 10:50 Bed 6 Private MD: Lele Rahman H ED Physician Joey Jung HPI: 12/24 12:54 This 66 yrs old Female presents to ER via Wheelchair with complaints of Hives. kdr 12:54 The patient presents with itching, rash, redness of skin. Onset: The symptoms/episode kdr began/occurred gradually, 1 week(s) ago. Associated signs and symptoms: The patient has no apparent associated signs or symptoms. Possible causes: The patient has no known obvious cause for the symptoms, sun. At home the patient or guardian has treated the symptoms with Benadryl. Severity of symptoms: At their worst the symptoms were moderate in the emergency department the symptoms are unchanged. The patient has not experienced similar symptoms in the past. The patient has not recently seen a physician. Historical: - Allergies: 12:10 Bactrim DS; ld1 12:10 butorphanol tartrate; ld1 12:10 Fentanyl; ld1 12:10 Reglan; ld1 12:10 Stadol; ld1 12:10 sulfamethoxazole (bulk); ld1 12:10 TRIMETHOPRIM; ld1 - PMHx: 12:10 Atrial Fib; Anxiety; Bipolar disorder; Chronic pain; COPD; esophageal varices; ld1 Hepatitis; HIV; Hypertension; Migraines; Panic Attacks; - PSHx: 12:10 Appendectomy; Bilateral shoulder repair; Cholecystectomy; hernia repair; R wrist SX; ld1 - Immunization history:: Adult Immunizations up to date, Client reports receiving the 2nd dose of the Covid vaccine. - Social history:: Smoking status: Patient denies any tobacco usage or history of. Patient/guardian denies using alcohol. ROS: 12:54 Constitutional: Negative for fever, chills, and weight loss, Eyes: Negative for injury, kdr pain, redness, and discharge, ENT: Negative for injury, pain, and discharge, Neck: Negative for injury, pain, and swelling, Cardiovascular: Negative for chest pain, palpitations, and edema, Respiratory: Negative for shortness of breath, cough, wheezing, and pleuritic chest pain, Abdomen/GI: Negative for abdominal pain, nausea, vomiting, diarrhea, and constipation, Back: Negative for injury and pain, : Negative for injury, bleeding, discharge, and swelling, MS/Extremity: Negative for injury and deformity, Neuro: Negative for headache, weakness, numbness, tingling, and seizure activity. Psych: Negative for depression, anxiety, suicide ideation, homicidal ideation, and hallucinations, Allergy/Immunology: Negative for hives, rash, and allergies, Endocrine: Negative for neck swelling, polydipsia, polyuria, polyphagia, and marked weight changes, Hematologic/Lymphatic: Negative for swollen nodes, abnormal bleeding, and unusual bruising. 12:54 Skin: Positive for erythema, rash, diffusely. Exam: 12:54 Constitutional: This is a well developed, well nourished patient who is awake, alert, kdr and in no acute distress. Head/Face: Normocephalic, atraumatic. Eyes: Pupils equal round and reactive to light, extra-ocular motions intact. Lids and lashes normal. Conjunctiva and sclera are non-icteric and not injected. Cornea within normal limits. Periorbital areas with no swelling, redness, or edema. Neck: Trachea midline, no thyromegaly or masses palpated, and no cervical lymphadenopathy. Supple, full range of motion without nuchal rigidity, or vertebral point tenderness. No Meningismus. Chest/axilla: Normal chest wall appearance and motion. Nontender with no deformity. No lesions are appreciated. Cardiovascular: Regular rate and rhythm with a normal S1 and S2. No gallops, murmurs, or rubs. Normal PMI, no JVD. No pulse deficits. Respiratory: Lungs have equal breath sounds bilaterally, clear to auscultation and percussion. No rales, rhonchi or wheezes noted. No increased work of breathing, no retractions or nasal flaring. Abdomen/GI: Soft, non-tender, with normal bowel sounds. No distension or tympany. No guarding or rebound. No evidence of tenderness throughout. Back: No spinal tenderness. No costovertebral tenderness. Full range of motion. MS/ Extremity: Pulses equal, no cyanosis. Neurovascular intact. Full, normal range of motion. Neuro: Awake and alert, GCS 15, oriented to person, place, time, and situation. Cranial nerves II-XII grossly intact. Motor strength 5/5 in all extremities. Sensory grossly intact. Cerebellar exam normal. Normal gait. Psych: Awake, alert, with orientation to person, place and time. Behavior, mood, and affect are within normal limits. 12:54 Skin: Appearance: Color: erythematous, ai, Temperature: normal temperature, Moisture: dry, ecchymosis, that are mild, and are scattered, rash a mild rash is noted, rash can be described as erythematous, macular, urticarial. Vital Signs: 12:08 BP 133 / 79; Pulse 89; Resp 18; Temp 97.6(TE); Pulse Ox 99% on R/A; Weight 81.19 kg; ld1 Height 5 ft. 4 in. (162.56 cm); Pain 0/10; 12:08 Body Mass Index 30.72 (81.19 kg, 162.56 cm) ld1 MDM: 12:50 Patient medically screened. kdr 12:54 Data reviewed: vital signs, nurses notes. Counseling: I had a detailed discussion with kdr the patient and/or guardian regarding: the historical points, exam findings, and any diagnostic results supporting the discharge/admit diagnosis, the need for outpatient follow up. Administered Medications: 13:30 Drug: SOLU-Medrol (methylPREDNISolone sodium succinate) 125 mg Route: IM; Site: right kr3 vastus lateralis; 13:41 Follow up: Response: No adverse reaction kr3 Disposition Summary: 12/24/21 12:50 Discharge Ordered Location: Home kdr Problem: an ongoing problem kdr Symptoms: have improved kdr Condition: Stable kdr Diagnosis - Rash and other nonspecific skin eruption kdr - Allergic urticaria kdr Followup: kdr - With: Lele Rahman DO - When: 2 - 3 days - Reason: If symptoms return, Further diagnostic work-up, Recheck today's complaints, Continuance of care, Re-evaluation by your physician Discharge Instructions: - Discharge Summary Sheet kdr - Rash, Adult, Zlro-wd-Poed kdr Forms: - Medication Reconciliation Form kdr - Thank You Letter kdr Prescriptions: - Benadryl 25 mg Oral Capsule - take 1 capsule by ORAL route every 6 hours As needed; 30 tablet; Refills: 0, kdr Product Selection Permitted - Medrol (Niall) 4 mg Oral Tablets, Dose Pack - take 1 tablet by ORAL route as directed - follow package instructions; 1 kdr packet; Refills: 0, Product Selection Permitted - Pepcid 20 mg Oral Tablet - take 1 tablet by ORAL route once daily; 20 tablet; Refills: 0, Product kdr Selection Permitted Signatures: Joey Jung MD MD kdr Wanda Rust RN RN ld1 Sharee Harrell RN RN kr3
--- NOTE | 2021-12-24 12:51 | ER ---
Nurse's Notes [facility] Name: Fawn Fleming Age: 66 yrs Sex: Female : 1955 Arrival Date: 12/24/2021 Time: 10:50 Bed 6 Private MD: Lele Rahman H Diagnosis: Rash and other nonspecific skin eruption;Allergic urticaria Presentation: 12/24 12:08 Chief complaint: Patient states: Hives all over body - itching. Pt reports itching ld1 began on Tuesday. Coronavirus screen: At this time, the client does not indicate any symptoms associated with coronavirus-19. Ebola Screen: No symptoms or risks identified at this time. Onset: The symptoms/episode began/occurred gradually. Anaphylaxis evaluation, no signs or symptoms of anaphylaxis were noted. Initial Sepsis Screen: Does the patient meet any 2 criteria? No. Patient's initial sepsis screen is negative. Does the patient have a suspected source of infection? No. Patient's initial sepsis screen is negative. Risk Assessment: Do you want to hurt yourself or someone else? Patient reports no desire to harm self or others. Onset of symptoms was December 24, 2021. 12:08 Method Of Arrival: Wheelchair ld1 12:08 Acuity: BLAYNE 3 ld1 Triage Assessment: 12:10 General: Appears in no apparent distress. comfortable, Behavior is calm, cooperative, ld1 appropriate for age. Pain: Denies pain. EENT: No signs and/or symptoms were reported regarding the EENT system. Neuro: Level of Consciousness is awake, alert, obeys commands, Oriented to person, place, time, situation, Appropriate for age. Cardiovascular: Capillary refill < 3 seconds Patient's skin is warm and dry. Respiratory: Airway is patent Respiratory effort is even, unlabored. GI: Abdomen is round non-distended. : No signs and/or symptoms were reported regarding the genitourinary system. Derm: Rash noted that is itchy, red, on back, chest, abdomen, right arm, left arm, right leg and left leg. Musculoskeletal: No signs and/or symptoms reported regarding the musculoskeletal system. Historical: - Allergies: 12:10 Bactrim DS; ld1 12:10 butorphanol tartrate; ld1 12:10 Fentanyl; ld1 12:10 Reglan; ld1 12:10 Stadol; ld1 12:10 sulfamethoxazole (bulk); ld1 12:10 TRIMETHOPRIM; ld1 - PMHx: 12:10 Atrial Fib; Anxiety; Bipolar disorder; Chronic pain; COPD; esophageal varices; ld1 Hepatitis; HIV; Hypertension; Migraines; Panic Attacks; - PSHx: 12:10 Appendectomy; Bilateral shoulder repair; Cholecystectomy; hernia repair; R wrist SX; ld1 - Immunization history:: Adult Immunizations up to date, Client reports receiving the 2nd dose of the Covid vaccine. - Social history:: Smoking status: Patient denies any tobacco usage or history of. Patient/guardian denies using alcohol. Screenin:39 Abuse screen: Denies threats or abuse. Denies injuries from another. Nutritional ph screening: No deficits noted. Tuberculosis screening: No symptoms or risk factors identified. Fall Risk None identified. Assessment: 13:36 General: Appears in no apparent distress. Behavior is calm, cooperative, appropriate ph for age. Neuro: Level of Consciousness is awake, alert, obeys commands, Oriented to person, place, time, situation. Cardiovascular: Capillary refill < 3 seconds in bilateral fingers Patient's skin is warm and dry. Respiratory: Airway is patent Denies shortness of breath. GI: No signs and/or symptoms were reported involving the gastrointestinal system. Derm: Skin is healthy with good turgor, Skin is pink, warm \T\ dry. Rash noted that is itchy, red, raised, on left leg and right leg and chest and back. 13:37 Respiratory: Airway is patent Breath sounds are clear. kr3 13:38 Reassessment: patient care assumed. Respiratory: kr3 Vital Signs: 12:08 BP 133 / 79; Pulse 89; Resp 18; Temp 97.6(TE); Pulse Ox 99% on R/A; Weight 81.19 kg; ld1 Height 5 ft. 4 in. (162.56 cm); Pain 0/10; 12:08 Body Mass Index 30.72 (81.19 kg, 162.56 cm) ld1 ED Course: 10:50 Patient arrived in ED. mr 10:50 Lele Rahman DO is Private Physician. mr 12:09 Triage completed. ld1 12:10 Arm band placed on right wrist. ld1 12:26 Solange Bennett, RN is Primary Nurse. ph 12:27 Patient placed in an exam room, on a stretcher. ll1 12:36 Joey Jung MD is Attending Physician. kdr 12:39 Patient has correct armband on for positive identification. Bed in low position. Call ph light in reach. Side rails up X 1. Pulse ox on. NIBP on. Door closed. Noise minimized. 12:49 Lele Rahman DO is Referral Physician. kdr 13:37 No provider procedures requiring assistance completed. Patient did not have IV access kr3 during this emergency room visit. Administered Medications: 13:30 Drug: SOLU-Medrol (methylPREDNISolone sodium succinate) 125 mg Route: IM; Site: right kr3 vastus lateralis; 13:41 Follow up: Response: No adverse reaction kr3 Medication: 12:39 VIS not applicable for this client. ph Outcome: 12:50 Discharge ordered by MD. kdr 13:37 Discharged to home via wheelchair. kr3 13:37 Condition: stable 13:37 Discharge instructions given to patient, Instructed on discharge instructions, follow up and referral plans. medication usage, Demonstrated understanding of instructions, follow-up care, medications, Prescriptions given X 3. 13:39 Patient left the ED. kr3 Signatures: Joey Jung MD MD [facility] Solange Bennett, ASHLEY RAMIREZ Yanira De Jesus RN RN ll1 Wanda Rust RN RN ld1 Sharee Harrell RN RN kr3 Corrections: (The following items were deleted from the chart) 12:12 12:08 81.19 kg; Height 5 ft. 4 in.; BMI: 30.7; Pain 0/10; ld1 ld1
[2021-12-24] MEDS ORDERED: METHYLPREDNISOLONE 125 MG INJ ONE (13:19)
[2021-12-24 13:48] VITALS: BP 133/79; TEMP 97.6; O2SAT 99
== END 2021-12-24 13:39 | disposition home or self-care (01) ==
LOC: ER 10:48
DX: R21 Rash and other nonspecific skin eruption (principal); L50.0 Allergic urticaria; I10 Essential (primary) hypertension; Z21 Asymptomatic human immunodeficiency virus [HIV] infection status; Z88.1 Allergy status to other antibiotic agents; Z88.2 Allergy status to sulfonamides; Z88.8 Allergy status to other drugs, medicaments and biological substances
CPT/HCPCS: 96372; 99283; J2930

== ENCOUNTER 2021-12-25 07:05 | Emergency (ER) | payer OTHER ==
--- OUTSIDE RECORDS SUMMARY | 2021-12-25 07:15 | XMS REPORT | Continuity of Care Document ---
:1955 Author Organization [facility] t Address [address] [place] [address] Care Team Providers Name Role Phone Urmila Rahman Primary Care Physician Mike Lund Attending Clinician Unavailable ELAN LIRA Attending Clinician Unavailable SANTIAGO CARDENAS Attending Clinician Unavailable Bill GUO Attending Clinician Unavailable Bill Rose Attending Clinician [facility] Attending Clinician Unavailable Santiago Sanchez Attending Clinician Beverly Layton MD Attending Clinician Eliseo Arce MD Attending Clinician Carol Ann WEB MERCHANDISER, Sarai Lieberman Attending Clinician [phone] Ashly Pelletier MA Attending Clinician Unavailable Robbi Bal Attending Clinician Monica Rodas MA Attending Clinician Unavailable Agustina Ortiz MA Attending Clinician Unavailable Kirit Flood MD, V. Attending Clinician BEVERLY LAYTON Attending Clinician Unavailable DO PORSHA STREETER Attending Clinician Unavailable Lele Rahman Admitting Clinician Unavailable Bill GUO Admitting Clinician Unavailable Mike Lund Admitting Clinician Unavailable ELISEO ARCE Admitting Clinician Unavailable DO PORSHA STREETER Admitting Clinician Unavailable Payers Payer Name Policy Type Policy Number Effective Date Expiration Date S [facility] COMMUNITY [id number] 2012 STARPLUS OON 00:00:00 EXCEPT [facility] DUAL [id number] 2020 COMP HMO D SNP 00:00:00 MEDICAID OF [place] [id number] 2020 00:00:00 Problems Condition Condition Condition Status Onset Resolution Last Treating Co mments Source Name Details Category Date Date Treatment Clinician Date Gastropare Gastropare Disease Active Overview : Methodi sis sis 4-[address] 00:00: [facility] 00 note l might be different from the original. Added automatic ally from request for surgery [id number] Dysphagia Dysphagia Disease Active Overview: Methodi 4-[address] 00:00: g of this [facility]osp[facility] 00 note l might be different from the original. 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 2020-10-15 Memoria PVI PVI 3-30 17:07:00 l ABLATION ABLATION 00:00: Patel soares W/ CARTO / W/ CARTO / 00 GA / T GA / T Active 08/19/2020 [facility] Food Food Disease Active 2019-05 Methodi [...] 08 it y of disorder disorder 00:00: [place] [...] [facility] hoxazole 1-25 Clear 00:00: Garcia 00 [facility] trimetho DA Active SV [facility] prim 1- Clear 00:00: Garcia 00 [facility] codeine DA Active SV N/V [facility] 1-25 Clear 00:00: Garcia [facility] Metoclop Propensi Active [place] ramide ty [...] DRUG Active Hives 2017- [facility] PRIM INGREDI 2-08 ity of 00:00: [place] 00 [facility] Fentanyl Drug Active Other - See Unknown Un matt Allergy comments 2 reaction ity o f 00:00: [place] 00 Medical Branch Trimetho Propensi Active Hives 2017- Univer s prim ty to 2-08 ity [...] Uni vers ramide ty to See comments 06 ity of adverse 00:00: [place] reaction 00 [...] Medical s Branch METOCLOP DRUG Active Anxiety 2014- Univers RAMIDE INGREDI 9-25 ity of HCL 00:00: [place] 00 Medical Branch Metoclop Propensi Active Anxiety 2014-0 Unive rs ramide ty to 9-25 ity [...] Stop Date Source Natural father Hypertension [facility] Natural father Kidney disease Method ist [facility] Natural mother [facility] Social History Social Habit Start Date Stop Date Quantity Comments Source History [facility] Alcohol Comment History of tobacco Smoker Method ist use Hospital History [facility] Alcohol Frequency Hospita l History [facility] Alcohol Std Drinks Hospit al History [facility] Alcohol Binge Hospital Exposure to 2021-12-02 2021-12-12 Not sure University SARS-CoV-2 (event) 00:00:00 23:54:00 [facility] Alcohol intake 2021-07-14 2021-07-14 Ex-drinker [facility] 00:00:00 00:00:00 (finding) Cigarettes smoked 2020-09-05 2020-09-[address] current (pack per 00:00:00 00:00:00 Hospita l day) - Reported Cigarette 2020-09-05 2020-09-05 [facility] pack-years 00:00:00 00:00:00 Hospital Tobacco use and 2020-08-06 2020-08-06 Former smokeless Uni versity of exposure 00:00:00 00:00:00 tobacco user [facility] Tobacco Comment 2015-02-14 2015-02-14 Smokes approx 1-2 Un iversity of 00:00:00 00:00:00 cigarettes per [facility] day when she Branch smokes Sex [birth year] [facility] 00:00:00 00:00:00 Smoking Status Start Date Stop Date Source Ex-smoker 2020-08-06 00:00:00 2020-08-06 00:00:00 [facility] Medications Ordered Filled Start Stop Current Ordering Indication Dosage Frequency Signature Comments Components Source Medication Medication Date Date Medication? Clinician (SIG) Name Name methocarbam No 500mg 500 mg, U nivers oL 12-13 Oral, ity of (ROBAXIN) 07:45: 06:35 ONCE[place] 1 [place] tablet 500 [place] :00 dose, On Medic al mg [facility] 12/13/21 at 0245, Routine ketorolac No 30mg 30 mg, Unive rs (TORADOL) 12-13 Intramuscu ity of injection 07:45: 06:34 [place], ONCE, [place] 30 mg 00 :00 1 dose, On Medical [facility] 12/13/21 at 0245, JOE naproxen 2021-0 Yes [id number] 500mg Take 1 U nivers (NAPROSYN) 7-24 tablet by ity of 500 mg 00:00: mouth in [place] tablet 00 the Medical morning Branch and 1 tablet in the evening. Take with meals. methocarbam 2021-0 Yes [id number] 500mg Take 1 Univers oL 500 mg 7-24 tablet by ity o f tablet 00:00: mouth 4 [place] 00 (four) Medical times Branch daily. hydralAZINE 0 Yes 25mg Take 25 mg Univers (APRESOLINE 7-01 by mouth ity of ) 25 mg 08:47: daily. [place] tablet 47 Medical Branch hydralAZINE 0 Yes 25mg Take 25 mg Univers (APRESOLINE 7-01 by mouth ity of ) 25 mg 08:47: daily. [place] tablet 47 Medical Branch buPROPion 2021-0 Yes [id number] 150mg Take 1 U nivers XL 4-12 tablet by ity of (WELLBUTRIN 00:00: mouth [place] XL) 150 mg 00 daily. Medical 24 hr Branch tablet busPIRone 2021-0 Yes [id number] 30mg Take 1 Un matt 30 mg 4-12 tablet by ity of tablet 00:00: mouth 2 [place] 00 (two) Medical times Branch daily. SERTraline 2021-0 Yes [id number] 200mg Take 2 Univers 100 mg 4-12 tablets by ity of tablet 00:00: mouth [place] 00 daily. Medical Branch buPROPion 2021-0 Yes [id number] 150mg Take 1 U nivers XL 4-12 tablet by ity of (WELLBUTRIN 00:00: mouth [place] XL) 150 mg 00 daily. Medical 24 hr Branch tablet busPIRone 2021-0 Yes [id number] 30mg Take 1 Un matt 30 mg 4-12 tablet by ity of tablet 00:00: mouth 2 [place] 00 (two) Medical times Branch daily. SERTraline 2021-0 Yes [id number] 200mg Take 2 Univers 100 mg 4-12 tablets by ity of tablet 00:00: mouth [place] 00 daily. Medical Branch raltegravir 2021-0 Yes [id number] 400mg Take 1 Univers (ISENTRESS) 3-28 tablet by ity of 400 mg 00:00: mouth 2 [place] tablet 00 (two) Medical times Branch daily. raltegravir Yes [id number] 400mg Take 1 Univers (ISENTRESS) 3-28 tablet by ity of 400 mg 00:00: mouth 2 [place] tablet 00 (two) Medical times Branch daily. raltegravir Yes [id number] 400mg Take 1 Univers (ISENTRESS) 3-28 tablet by ity of 400 mg 00:00: mouth 2 [place] tablet 00 (two) Medical times Branch daily. LORazepam 1 Yes [id number] 1mg Take 1 Univers mg tablet 3-21 [...] times a tablet day. buPROPion 2021- No [id number] 150mg Take 1 Univers XL -24 04-12 tablet by ity of (WELLBUTRIN 00:00: 00:00 [place] XL) 150 mg 00 :00 daily. Medical 24 hr Branch tablet busPIRone 2021- No [id number] 30mg Take 1 U nivers 30 mg -24 04-12 tablet by ity of tablet 00:00: 00:00 mouth 2 [place] 00 :00 (two) Medical times Branch daily. SERTraline 2021- No [id number] 200mg Take 2 Univers 100 mg 1-24 04-12 tablets by ity of tablet 00:00: 00:00 mouth [place] 00 :00 daily. Medical Branch emtricitabi Yes [id number] Take one Univers ne-tenofovi 1-20 po daily ity of r alafen 00:00: [place] (DESCOVY) 00 Medical tablet Branch emtricitabi Yes [id number] Take one Univers ne-tenofovi 1-20 po daily ity of r alafen 00:00: (DESCOVY) Medical tablet Branch emtricitabi Yes [id number] Take one Univers ne-tenofovi 1-20 po daily ity of r alafen 00:00: (DESCOVY) Medical tablet Branch metoprolol Yes [id number] Take 1 [place] tartrate 7-26 tablet Health (Lopressor) 00:00: (100 mg 100 MG 00 total) by tablet mouth 2 (two) times a day AND 0.5 tablets (50 mg total) every night. metoprolol Yes [id number] Take 1 [place] tartrate 7-26 tablet Health [...] (affected area in groin) hydrALAZINE Yes 50mg Q.[id number] Take 50 mg Methodi (APRESOLINE 7-[id number] mouth [address] ) 50 MG [...] Hospita tablet 25 daily. l nystatin-tr Yes [id number] Apply to [facility] 11-25 area(s) 3 ity of cream 00:00: (three) [place] 00 times Medical daily. Branch nystatin-tr Yes [id number] Apply to [facility] 11-25 area(s) 3 ity of cream 00:00: (three) [place] 00 times Medical daily. Branch nystatin-tr 0 Yes [id number] Apply to [facility] 11-25 area(s) 3 ity of cream 00:00: (three) [place] 00 times Medical daily. Branch budesonide- 2020-0 2021- No 1{puff} QD Inhale 1 Methodi formoteroL 6-25 06-[address] (SYMBICORT) 14:37: 00:00 morning. H ospita 160-4.5 02 :00 l mcg/actuati on inhaler hydrALAZINE 0 Yes [id number] 50mg Q.[id number] Take 1 UT (Apresoline 6-11 [id number] tablet (50 Health ) 50 MG 00:00: 3D mg total) tablet 00 by mouth 3 (three) times a day. hydrALAZINE 0 Yes [id number] 50mg Q.[id number] Take 1 [facility] (Apresoline 6-11 [id number] tablet (50 Health ) 50 MG 00:00: [...] ointment 00 mupirocin 0 Yes [place] (Bactroban) 5 Health 2 % 00:00: ointment 00 nystatin 2020- No [id number] Q.25D Take 5 mL Methodi (MYCOSTATIN 10-06- [...] ia 4-10 (Same as: l 14:00: Norvasc) [place] 00 emtricitabi No Notes: Caesar lisa ne [...] ia 4-10 (Same as: l 14:00: Norvasc) [place] emtricitabi No Notes: Caesar lisa ne 200 [...] ia 4-10 (Same as: l 14:00: Norvasc) [place] 00 emtricitabi No Notes: Caesar lisa ne 200 MG / 4-10 (Same as: l tenofovir 14:00: Descovy) Herm ariel alafenamide 00 Non-formul 25 MG Oral nancy Tablet [Descovy] Sertraline No Notes: Memor ia 4-10 (Same as: l 14:00: Zoloft) pantoprazol No Notes: [place] lisa e 4-10 Tablet l 14:00: should not [place] 00 be chewed or crushed. (Same as: [...] e 4-10 Tablet l 14:00: should not [place] 00 be chewed or crushed. (Same as: Protonix) Amiodarone No Notes: Memor ia 4-10 (Same as: l 14:00: Cordarone) Amlodipine No Notes: Memor ia 4-10 (Same as: l 14:00: Norvasc) [place] 00 emtricitabi No Notes: Caesar lisa ne 200 MG / 4-10 (Same as: l tenofovir 14:00: Descovy) Herm ariel alafenamide 00 Non-formul 25 MG Oral nancy Tablet [Descovy] Sertraline No Notes: Memor ia 4-10 (Same as: l 14:00: Zoloft) [place] pantoprazol No Notes: Caesar lisa e 4-10 Tablet l 14:00: should not [place] 00 be chewed or crushed. (Same as: Protonix) Amiodarone No Notes: Memor ia 4-10 (Same as: l 14:00: Cordarone) [place] Amlodipine No Notes: Memor ia 4-10 (Same as: l 14:00: Norvasc) [place] emtricitabi No Notes: Caesar lisa ne 200 MG / 4-10 (Same as: l tenofovir 14:00: Descovy) Herm ariel alafenamide 00 Non-formul 25 MG Oral nancy Tablet [Descovy] Sertraline No Notes: Memor ia 4-10 (Same as: l 14:00: Zoloft) [place] 00 pantoprazol No Notes: Caesar lisa e 4-10 Tablet l 14:00: should not [place] 00 be chewed or crushed. (Same as: Protonix) Amiodarone No Notes: Memor ia 4-10 (Same as: l 14:00: Cordarone) [place] 00 Amlodipine No Notes: Memor ia 4-10 (Same as: l 14:00: Norvasc) [place] 00 emtricitabi No Notes: Caesar lisa ne 200 MG / 4-10 (Same as: l tenofovir 14:00: Descovy) Herm ariel alafenamide 00 Non-formul 25 MG Oral nancy Tablet [Descovy] Sertraline No Notes: Memor ia 4-10 (Same as: l 14:00: Zoloft) [place] 00 pantoprazol No Notes: Caesar lisa e [...] M emoria 4-10 interfere l 02:00: w/enteral [place] 00 feeds - Take 1 hr before or 2 hr after antacids, dairy pdt, meals & minerals - On empty stomach. For patients unable to swallow tablet, dissolve in 10mL - 30mL of water or juice and stir before giving. (Same As: Carafate) Saline No Notes: Memoria Flush 0.9% 4-10 (Same as: l 02:00: BD [place] Posiflush) Eliquis No Notes: Memoria 4-10 Same as: l 02:00: Eliquis [place] 00 Hydralazine No Notes: Caesar lisa Hydrochlori 4-10 (Same as: l de 50 MG 02:00: Apresoline Her mitchell Oral Tablet 00 ) May interfere w/enteral feedings Take With Food Sucralfate No Notes: May M emoria 4-10 interfere l 02:00: w/enteral [place] 00 feeds - Take 1 hr before [...] M emoria 4-10 interfere l 02:00: w/enteral [place] 00 feeds - Take 1 hr before or 2 hr after antacids, dairy pdt, meals & minerals - On empty stomach. For patients unable to swallow tablet, dissolve in 10mL - 30mL of water or juice and stir before giving. (Same As: Carafate) Saline No Notes: Memoria Flush 0.9% 4-10 (Same as: l 02:00: BD [place] Posiflush) Eliquis No Notes: Memoria 4-10 Same [...] M emoria 4-10 interfere l 02:00: w/enteral [place] 00 feeds - Take 1 hr before or 2 hr after antacids, dairy pdt, meals & minerals - On empty stomach. For patients unable to swallow tablet, dissolve in 10mL - 30mL of water or juice and stir before giving. (Same As: Carafate) Saline No Notes: Memoria Flush 0.9% 4-10 (Same as: l 02:00: BD [place] Posiflush) Eliquis No Notes: Memoria 4-10 Same as: l 02:00: Eliquis Hydralazine No Notes: Caesar lisa Hydrochlori 4-10 (Same as: l de 50 MG 02:00: Apresoline Her mitchell Oral Tablet 00 ) May interfere w/enteral feedings Take With Food acetaminoph No Notes: Do M emoria en-codeine 4-10 not exceed l #3 00:12: 4gm/day of [place] 00 acetaminop hen. (Same as: Tylenol with [...] not exceed l #3 00:12: 4gm/day of [place] acetaminop hen. (Same as: Tylenol with Codeine # 3) acetaminoph No Notes: Do M emoria en-codeine 4-10 not exceed l #3 00:12: 4gm/day of [place] acetaminop hen. (Same as: Tylenol with Codeine # 3) acetaminoph No Notes: Do M emoria en-codeine 4-10 not exceed l #3 00:12: 4gm/day of [place] acetaminop hen. (Same as: Tylenol with Codeine [...] tartrate -09 tab, l 22:00: Route: PO, Drug [...] oria 4-09 tab, l 22:00: Route: PO, [place] Drug form: TAB, BID, Dosing Weight 97.273, [...] tartrate 4-09 tab, l 22:00: Route: PO, [place] Drug form: TAB, BID, Dosing Weight 97.273, [...] oria 4-09 tab, l 22:00: Route: PO, [place] 00 Drug form: TAB, BID, Dosing Weight 97.273, kg, Start date: 08/29/20 17:00:00 CDT, Duration: 30 day, Stop date: 09/28/20 9:00:00 CDT metoprolol 2021-0 No 100 mg, 1 Me moria tartrate 4- tab, l 22:00: Route: PO, [place] 00 Drug form: TAB, BID, Dosing Weight 97.273, kg, Start date: 08/29/20 17:00:00 CDT, Duration: 30 day, Stop date: 09/28/20 9:00:00 CDT Raltegravir 2020-0 No 400 mg, 1 M emoria 400 MG Oral - tab, l Tablet 22:00: Route: PO, [place]ylar nn [[facility]] 00 Drug form: TAB, BID, Dosing Weight 97.273, kg, Start date: 08/29/20 17:00:00 CDT, Duration: 30 day, Stop date: 09/28/20 9:00:00 CDT, 0 Buspirone 1-0 No Notes: Memori a 08-29 (Same As: l 22:00: BuSpar) Lisinopril 2020-0 No 40 mg, 1 Mem oria - tab, l 22:00: Route: PO, [place] 00 Drug form: TAB, BID, Dosing Weight 97.273, kg, Start date: 08/29/20 17:00:00 CDT, Duration: 30 day, Stop date: 09/28/20 9:00:00 CDT metoprolol 2021-0 No 100 mg, 1 Me moria tartrate 4-09 tab, l 22:00: Route: PO, [place] Drug form: TAB, BID, Dosing Weight 97.273, [...] 0 Buspirone 0 No Notes: Memori a 4- (Same As: [...] Notes: Memoria 4-09 (Same l 17:07: as:MORPhin [place] 00 e Sulfate) Morphine No Notes: Memoria 4-09 (Same l 17:07: as:MORPhin [place] 00 e Sulfate) Morphine No Notes: Memoria 4-09 (Same l 17:07: as:MORPhin [place] 00 e Sulfate) Morphine 2020-0 No Notes: Memoria 4- (Same l 17:07: as:MORPhin [place] 00 e Sulfate) Morphine 2020-0 No Notes: Memoria 4- (Same l 17:07: as:MORPhin [place] 00 e Sulfate) Morphine 2020-0 No Notes: Memoria 4- (Same l 17:07: as:MORPhin [place] 00 e Sulfate) buPROPion 2020-0 No 150 [...] 30 tab, 0 coated Refill(s), tablet Pharmacy: [facility] 149, 162.56, cm, 08/29/20 5:30:00 CDT, Height, 97.273, kg, 08/29/20 5:30:00 CDT, Weight pantoprazol 2020-0 Yes 40 mg = 1 M emoria e 40 mg 4-09 tab, PO, l oral 15:27: Daily, # [place] enteric 00 30 tab, 0 coated Refill(s), tablet Pharmacy: [facility] 149, 162.56, cm, 08/29/20 5:30:00 CDT, Height, 97.273, kg, 08/29/20 5:30:00 CDT, Weight pantoprazol 2020-0 Yes 40 mg = 1 M emoria e 40 mg 4-09 tab, PO, l oral 15:27: Daily, # [place] enteric 00 30 tab, 0 coated Refill(s), tablet Pharmacy: [facility] 149, 162.56, cm, 08/29/20 5:30:00 CDT, Height, 97.273, kg, 08/29/20 5:30:00 CDT, Weight pantoprazol 2020-0 Yes 40 mg = 1 M emoria e 40 mg 4-09 tab, PO, l oral 15:27: Daily, # [place] enteric 00 30 tab, 0 coated Refill(s), tablet Pharmacy: [facility] 149, 162.56, cm, 08/29/20 5:30:00 CDT, Height, 97.273, kg, 08/29/20 5:30:00 CDT, Weight pantoprazol 2020-0 Yes 40 mg = 1 M emoria e 40 mg 4-09 tab, PO, l oral 15:27: Daily, # [place] enteric 00 30 tab, 0 coated Refill(s), tablet Pharmacy: [facility] 149, 162.56, cm, 08/29/20 5:30:00 CDT, Height, 97.273, kg, 08/29/20 5:30:00 CDT, Weight pantoprazol 2020-0 Yes 40 mg = 1 M emoria e 40 mg 4-09 tab, PO, l oral 15:27: Daily, # [place] enteric 00 30 tab, 0 coated Refill(s), tablet Pharmacy: [facility] 149, 162.56, cm, 08/29/20 5:30:00 CDT, Height, 97.273, kg, 08/29/20 5:30:00 CDT, Weight pantoprazol 2020-0 Yes 40 mg = 1 M emoria e 40 mg 4-09 tab, PO, l oral 15:27: Daily, # [place] enteric 00 30 tab, 0 coated Refill(s), tablet Pharmacy: [facility] 149, 162.56, cm, 08/29/20 5:30:00 CDT, Height, 97.273, kg, 08/29/20 5:30:00 CDT, Weight pantoprazol 2020-0 No 40 mg = 1 M emoria e 40 mg 4-09 tab, PO, l oral 15:26: Daily, # [place] enteric 00 30 tab, 0 coated Refill(s) tablet sucralfate 2020-0 Yes 1 gm = 1 Mem oria 1 g oral 4-09 tab, PO, l tablet 15:26: Q12H, # 28 Skylar nn 00 tab, 0 Refill(s), Pharmacy: [facility] 149, 162.56, cm, 08/29/20 5:30:00 CDT, [...] [place] nn 00 tab, 0 Refill(s), Pharmacy: [facility] 149, 162.56, cm, 08/29/20 5:30:00 CDT, Height, 97.273, kg, 08/29/20 5:30:00 CDT, Weight pantoprazol 2020-0 No 40 mg = 1 M emoria e 40 mg 4-09 tab, PO, l oral 15:26: Daily, # [place] enteric 00 30 tab, 0 coated Refill(s) tablet sucralfate 2020-0 Yes 1 gm = 1 Mem oria 1 g oral 4-09 tab, PO, l tablet 15:26: Q12H, # 28 [place]yl[place] nn 00 tab, 0 Refill(s), Pharmacy: [place] [id number], 162.56, cm, 08/29/20 5:30:00 CDT, Height, 97.273, kg, 08/29/20 5:30:00 CDT, Weight pantoprazol 2020-0 No 40 mg = 1 M emoria e 40 mg 4-09 tab, PO, l oral 15:26: Daily, # [place] enteric 00 30 tab, 0 coated Refill(s) tablet sucralfate 2020-0 Yes 1 gm = 1 Mem oria 1 g oral 4-09 tab, PO, l tablet 15:26: Q12H, # 28 [place] nn 00 tab, 0 Refill(s), Pharmacy: [facility] 149, 162.56, cm, 08/29/20 5:30:00 CDT, [...] [place] nn 00 tab, 0 Refill(s), Pharmacy: [facility] 149, 162.56, cm, 08/29/20 5:30:00 CDT, Height, 97.273, kg, 08/29/20 5:30:00 CDT, Weight pantoprazol No 40 mg = 1 M emoria e 40 mg 4-09 tab, PO, l oral 15:26: Daily, # [place] enteric 00 30 tab, 0 coated Refill(s) tablet sucralfate Yes 1 gm = 1 Mem oria 1 g oral 4-09 tab, PO, l tablet 15:26: Q12H, # 28 [place] nn 00 tab, 0 Refill(s), Pharmacy: [facility] 149, 162.56, cm, 08/29/20 5:30:00 CDT, Height, 97.273, kg, 08/29/20 5:30:00 CDT, Weight pantoprazol No 40 mg = 1 M emoria e 40 mg 4-09 tab, PO, l oral 15:26: Daily, # [place] enteric 00 30 tab, 0 coated Refill(s) tablet sucralfate Yes 1 gm = 1 Mem oria 1 g oral 4-09 tab, PO, l tablet 15:26: Q12H, # 28 [place]yl[place] nn 00 tab, 0 Refill(s), Pharmacy: [facility] 149, 162.56, cm, 08/29/20 5:30:00 CDT, Height, 97.273, kg, 08/29/20 5:30:00 CDT, Weight Saline No Notes: Memoria Flush 0.9% 08-29 (Same as: l 15:25: BD [place] Posiflush) Lorazepam No Notes: Memori a - (Same as: l 15:25: Ativan) [place] Saline No Notes: Memoria Flush 0.9% 4-09 (Same as: l 15:25: BD [place] 00 Posiflush) Lorazepam No Notes: Memori a 4-09 (Same as: l 15:25: Ativan) Saline No Notes: Memoria Flush 0.9% 4-09 (Same as: l 15:25: BD [place] 00 Posiflush) Saline No Notes: Memoria Flush 0.9% 4-09 (Same as: l 15:25: BD [place] 00 Posiflush) Lorazepam No Notes: Memori a 4-09 (Same as: l 15:25: Ativan) Lorazepam No Notes: Memori a 4-09 (Same as: l 15:25: Ativan) Saline No Notes: Memoria Flush 0.9% 4-09 (Same as: l 15:25: BD [place] 00 Posiflush) Lorazepam No Notes: Memori a 4-09 (Same as: l 15:25: Ativan) Saline No Notes: Memoria Flush 0.9% 4-09 (Same as: l 15:25: BD [place] 00 Posiflush) Lorazepam No Notes: Memori a [...] Drug form: l mg + 15:00: INJ, [place] Dosing Weight 97.3, kg, Start date: 08/29/20 10:00:00 CDT, Stop date: 08/29/20 11:00:00 CDT Isuprel HCl 2020-0 No Route: IV, Memoria (ANES) 0.2 08-29 Drug form: l mg + 15:00: INJ, [place] Dosing Weight 97.3, kg, Start date: 08/29/20 [...] 08-29 Drug form: l 14:49: INJ, ONCE, [place] 00 Stop date: 08/29/20 9:49:00 CDT heparin 202-0 No Route: IV, Caesar lisa (ANES) 08-29 Drug form: l 14:49: INJ, ONCE, Stop date: 08/29/20 9:49:00 CDT heparin 202-0 No Route: IV, [place] lisa (ANES) 08-29 Drug form: l 14:49: INJ, ONCE, [place] 00 Stop date: 08/29/20 9:49:00 CDT heparin 202-0 No Route: IV, Caesar lisa (ANES) 08-29 Drug form: l 14:49: INJ, ONCE, [place] 00 Stop date: 08/29/20 9:49:00 CDT heparin [...] 08-29 Drug form: l 14:29: INJ, ONCE, [place] 00 Stop date: 08/29/20 9:29:00 CDT propofol 2021-0 No Route: IV, Mem oria (ANES) 08-29 Drug form: l 14:29: INJ, ONCE, Stop date: 08/29/20 9:29:00 CDT propofol 2021-0 No Route: IV, Mem oria (ANES) 08-29 Drug form: l 14:29: INJ, ONCE, Stop date: 08/29/20 9:29:00 CDT propofol 2021-0 No Route: IV, Mem oria (ANES) 08-29 Drug form: l 14:29: INJ, ONCE, [place] 00 Stop date: 08/29/20 9:29:00 CDT propofol 2021-0 No Route: IV, Mem oria (ANES) 08-29 Drug form: l 14:29: INJ, ONCE, Stop date: 08/29/20 9:29:00 CDT propofol 2020-0 No Route: IV, Mem oria (ANES) 08-29 Drug form: l 14:29: INJ, ONCE, [place] 00 Stop date: 08/29/20 9:29:00 CDT heparin 202-0 No Route: IV, Caesar lisa (ANES) 08-29 Drug form: l 14:18: INJ, ONCE, [place] 00 Stop date: 08/29/20 9:18:00 CDT heparin 202-0 No Route: IV, Caesar lisa (ANES) 08-29 Drug form: l 14:18: INJ, ONCE, Stop date: 08/29/20 9:18:00 CDT heparin 202-0 No Route: IV, Caesar lisa (ANES) 08-29 Drug form: l 14:18: INJ, ONCE, [place] 00 Stop date: 08/29/20 9:18:00 CDT heparin 202-0 No Route: IV, Caesar lisa (ANES) 08-29 Drug form: l 14:18: INJ, ONCE, [place] 00 Stop date: 08/29/20 9:18:00 CDT heparin [...] 08-29 Drug form: l 14:18: INJ, ONCE, [place] 00 Stop date: 08/29/20 9:18:00 CDT Flumazenil 1-0 No 0.2 mg, Caesar lisa [...] Memori a 08-29 Route: l 14:01: IVP, [place] 00 Q5Min, Dosing Weight 97.273, kg, PRN [...] oria ne 08-29 Route: l 14:01: IVP, [place] 00 Q5Min, Dosing Weight 97.273, kg, PRN [...] Memori a 08-29 Route: l 14:01: IVP, [place] 00 Q2MIN, Dosing Weight 97.273, kg, PRN Narcotic Reversal, Start date: 08/29/20 9:01:00 CDT, Duration: 8 doses or times, Stop date: Limited # of times Ondansetron 2020-0 No 4 mg, Memor ia 08-29 Route: l 14:01: IVP, ONCE, [place] 00 Dosing Weight 97.273, kg, PRN Nausea & Vomiting, Start date: 08/29/20 9:01:00 CDT Labetalol 2020-0 No 10 mg, Memori a 08-29 Route: l 14:01: IVP, [place] 00 Q5Min, Dosing Weight 97.273, kg, PRN Elevated BP, Start date: 08/29/20 9:01:00 CDT, Duration: 5 doses or times, Stop date: Limited # of times Acetaminoph 2020-0 No 1,000 mg, M emoria en 08-29 Route: PO, l 14:01: Drug form: [place] 00 TAB, ONCE, Dosing Weight 97.273, kg, [...] Memori a 08-29 Route: l 14:01: IVP, [place] 00 Q2MIN, Dosing Weight 97.273, kg, PRN Narcotic Reversal, Start date: 08/29/20 9:01:00 CDT, Duration: 8 doses or times, Stop date: Limited # of times Ondansetron 2020-0 No 4 mg, Memor ia 08-29 Route: l 14:01: IVP, ONCE, [place] 00 Dosing Weight 97.273, kg, PRN Nausea [...] oria ne 08-29 Route: l 14:01: IVP, [place] 00 Q5Min, Dosing Weight 97.273, kg, PRN [...] Memori a 08-29 Route: l 14:01: IVP, [place] 00 Q2MIN, Dosing Weight 97.273, kg, PRN Narcotic Reversal, Start date: 08/29/20 9:01:00 CDT, Duration: 8 doses or times, Stop date: Limited # of times Ondansetron 2020-0 No 4 mg, Memor ia 08-29 Route: l 14:01: IVP, ONCE, [place] 00 Dosing Weight 97.273, kg, PRN Nausea & Vomiting, Start date: 08/29/20 9:01:00 CDT Labetalol 1-0 No 10 mg, Memori a 08-29 Route: l 14:01: IVP, [place] 00 Q5Min, Dosing Weight 97.273, kg, PRN [...] oria ne 08-29 Route: l 14:01: IVP, [place] 00 Q5Min, Dosing Weight 97.273, kg, PRN [...] Memori a 08-29 Route: l 14:01: IVP, [place] 00 Q2MIN, Dosing Weight 97.273, kg, PRN [...] ia 08-29 Route: l 14:01: IVP, ONCE, [place] 00 Dosing Weight 97.273, kg, PRN Nausea & Vomiting, Start date: 08/29/20 9:01:00 CDT Naloxone 2021-0 No 0.4 mg, Memori a 08-29 Route: l 14:01: IVP, [place] 00 Q2MIN, Dosing Weight 97.273, kg, PRN Narcotic Reversal, Start date: 08/29/20 9:01:00 CDT, Duration: 8 doses or times, Stop date: Limited # of times Ondansetron 2021-0 No 4 mg, Memor ia 08-29 Route: l 14:01: IVP, ONCE, [place] 00 Dosing Weight 97.273, kg, PRN Nausea & Vomiting, Start date: 08/29/20 9:01:00 CDT Labetalol 2020-0 No 10 mg, Memori a 08-29 Route: l 14:01: IVP, [place] 00 Q5Min, Dosing Weight 97.273, kg, PRN Elevated BP, Start date: 08/29/20 9:01:00 CDT, Duration: 5 doses or times, Stop date: Limited # of times Acetaminoph 2020-0 No 1,000 mg, M emoria en 08-29 Route: PO, l 14:01: Drug form: [place] 00 TAB, ONCE, Dosing Weight 97.273, kg, [...] oria ne 08-29 Route: l 14:01: IVP, [place] 00 Q5Min, Dosing Weight 97.273, kg, PRN [...] Memori a 08-29 Route: l 14:01: IVP, [place] 00 Q2MIN, Dosing Weight 97.273, kg, PRN Narcotic Reversal, Start date: 08/29/20 9:01:00 CDT, Duration: 8 doses or times, Stop date: Limited # of times Ondansetron 2020-0 No 4 mg, Memor ia 08-29 Route: l 14:01: IVP, ONCE, [place] 00 Dosing Weight 97.273, kg, PRN Nausea & Vomiting, Start date: 08/29/20 9:01:00 CDT Labetalol 0 No 10 mg, Memori a 08-29 Route: l 14:01: IVP, [place] 00 Q5Min, Dosing Weight 97.273, kg, PRN Elevated BP, Start date: 08/29/20 9:01:00 CDT, Duration: 5 doses or times, Stop date: Limited # of times Acetaminoph 0 No 1,000 mg, M emoria en 08-29 Route: PO, l 14:01: Drug form: [place] 00 TAB, ONCE, Dosing Weight 97.273, kg, [...] oria ne 08-29 Route: l 14:01: IVP, [place] 00 Q5Min, Dosing Weight 97.273, kg, PRN Pain Score 7-10, Start date: 08/29/20 9:01:00 CDT, Duration: 4 doses or times, Stop date: Limited # of times lidocaine No Route: IV, Me moria (ANES) 08-29 Drug form: l 13:52: INJ, ONCE, [place] 00 Stop date: 08/29/20 8:52:00 CDT rocuronium No [...] 08-29 Drug form: l 13:42: INJ, ONCE, [place] Stop date: 08/29/20 8:42:00 CDT fentaNYL 2020-0 [...] Drug form: l 10 13:15: INJ, Start [place] microgram date: 08/29/20 8:15:00 CDT, Stop date: 08/29/20 9:15:00 CDT norepinephr 2020-0 No Route: IV, Memoria ine (ANES) 08-29 Drug form: l 10 13:15: INJ, Start [place] microgram date: 08/29/20 8:15:00 CDT, Stop date: 08/29/20 9:15:00 CDT norepinephr 2020-0 No Route: IV, Memoria ine (ANES) 08-29 Drug form: l 10 13:15: INJ, Start [place] microgram date: 08/29/20 8:15:00 CDT, Stop date: [...] Drug form: l 10 13:15: INJ, Start [place] microgram 00 date: 08/29/20 8:15:00 CDT, Stop [...] 4-09 Total l 0.9% IV 12:30: Volume: [place] (ANES) 1000 00 1,000, mL Start date: [...] 4-09 Total l 0.9% IV 12:30: Volume: [place] (ANES) 1000 00 1,000, mL Start date: [...] PO, l Hydrochlori 11:42: Q24H, # 30 [place] de 150 MG 00 tab, 0 Extended Refill(s) Release Tablet 24 HR Yes 150 mg = 1 Memori a Bupropion -09 tab, PO, l Hydrochlori 11:42: Q24H, # 30 [place] de 150 MG 00 tab, 0 Extended Refill(s) Release Tablet 24 HR Yes 150 mg = 1 Memori a Bupropion -09 tab, PO, l Hydrochlori 11:42: Q24H, # 30 [place] de 150 MG 00 tab, 0 Extended Refill(s) Release Tablet 24 HR Yes 150 mg = 1 Memori a Bupropion - tab, PO, l Hydrochlori 11:42: Q24H, # 30 [place] de 150 MG 00 tab, 0 Extended Refill(s) Release Tablet 24 HR Yes 150 mg = 1 Memori a Bupropion -09 tab, PO, l Hydrochlori 11:42: Q24H, # 30 [place] de 150 MG 00 tab, 0 Extended Refill(s) Release Tablet 24 HR Yes 150 mg = 1 Memori a Bupropion -09 tab, PO, l Hydrochlori 11:42: Q24H, # 30 [place] de 150 MG 00 tab, 0 Extended Refill(s) Release Tablet 24 HR Yes 150 mg = 1 Memori a Bupropion 4-09 tab, PO, l Hydrochlori 11:42: Q24H, # 30 [place] de 150 MG 00 tab, 0 Extended [...] 08-29 Q12H, tab, l Tablet 11:41: 0 [place] [Eliquis] 00 Refill(s), For Atrial Fibrilatio n apixaban 5 2020-0 Yes 5 mg, PO, Me moria MG Oral 08-29 Q12H, tab, l Tablet 11:41: 0 [place] [Eliquis] 00 Refill(s), For Atrial Fibrilatio n apixaban 5 2020-0 Yes 5 mg, PO, Me moria MG Oral 08-29 Q12H, tab, l Tablet 11:41: 0 [place] [Eliquis] 00 Refill(s), For Atrial Fibrilatio n apixaban 5 2020-0 Yes 5 mg, PO, Me moria MG Oral - Q12H, tab, l Tablet 11:41: 0 [place] [Eliquis] 00 Refill(s), For Atrial Fibrilatio n AMIODarone 2020-0 Yes 200 mg = 1 M emoria 200 mg oral -09 tab, PO, l tablet 11:38: Daily, # [place] 00 90 tab, 3 Refill(s) AMIODarone 2020-0 Yes 200 mg = 1 M emoria 200 mg oral 4-09 tab, PO, l tablet 11:38: Daily, # [place] 00 90 tab, 3 Refill(s) AMIODarone 2020-0 Yes 200 mg = 1 M emoria 200 mg oral 4-09 tab, PO, l tablet 11:38: Daily, # [place] 00 90 tab, 3 Refill(s) AMIODarone 2020-0 Yes 200 mg = 1 M emoria 200 mg oral 4-09 tab, PO, l tablet 11:38: Daily, # [place] 00 90 tab, 3 Refill(s) AMIODarone 0 [...] No 1,000 mL, Memori a saline 0.9% 4 Rate: 100 l IV 1,000 mL 10:30: [...] 08:06: daily. [place] tablet 41 [facility] albuterol 2019-0 Yes [...] %) solution solution for nebulizati on albuterol 2019-0 Yes albuterol [place] (2.5 2-11 [...] Filled Immunization Date Status Comments [facility] e Immunization Name Name PFIZER COVID-19 2020-07-23 Completed [facility] MRNA VACCINATION 00:00:00 [facility] PFIZER COVID-19 2020-07-02 Completed [facility] MRNA VACCINATION 00:00:00 [facility] Influenza Virus 2017-03-08 Completed Universit y of Vaccine 00:00:00 [facility] Influenza Virus 2017-03-08 Completed Universit y of Vaccine 00:00:00 [facility] Influenza Virus 2017-03-08 Completed Universit y of Vaccine 00:00:00 [facility] Influenza Virus 2014-01-30 Completed Universit y of Vaccine (3+ yrs) 00:00:00 [facility] dical Branch Pneumococcal 13 2014-01-30 Completed Universit y of Conjugate, PCV13 00:00:00 [facility] dical (Prevnar 13) Branch Influenza Virus 2014-01-30 Completed Universit y of Vaccine (3+ yrs) 00:00:00 [facility] dical Branch Pneumococcal 13 2014-01-30 Completed Universit y of Conjugate, PCV13 00:00:00 [facility] dical (Prevnar 13) Branch Influenza Virus 2014-01-30 Completed Universit y of Vaccine (3+ yrs) 00:00:00 [facility] dical Branch Pneumococcal 13 2014-01-30 Completed Universit y of Conjugate, PCV13 00:00:00 [facility] dical (Prevnar 13) Branch Pneumococcal 2012-02-16 Completed University o f Polysaccharide, 00:00:00 [facility] ical PPSV23 (PNEUMOVAX) Branch Influenza Virus 2012-02-16 Completed Universit y of Vaccine 00:00:00 [facility] PPD (TB) 2012-02-16 Completed University of 00:00:00 [facility] Pneumococcal 2012-02-16 Completed University o f Polysaccharide, 00:00:00 [facility] ical PPSV23 (PNEUMOVAX) Branch Influenza Virus 2012-02-16 Completed Universit y of Vaccine 00:00:00 [facility] PPD (TB) 2012-02-16 Completed University of 00:00:00 [facility] Pneumococcal 2012-02-16 Completed University o f Polysaccharide, 00:00:00 [facility] ical PPSV23 (PNEUMOVAX) Branch Influenza Virus 2012-02-16 Completed Universit y of Vaccine 00:00:00 [facility] PPD (TB) 2012-02-16 Completed University of 00:00:00 [facility] Hep B, Adol or Pedi 2011-09-01 Completed Unive rsity of Dosage 00:00:00 [facility] Hep B, Adol or Pedi 2011-09-01 Completed Unive rsity of Dosage 00:00:00 [facility] Hep B, Adol or Pedi 2011-09-01 Completed Unive rsity of Dosage 00:00:00 [facility] Hep B, Adol or Pedi 2011-03-17 Completed Unive rsity of Dosage 00:00:00 [facility] Hep B, Adol or Pedi 2011-03-17 Completed Unive rsity of Dosage 00:00:00 [facility] Hep B, Adol or Pedi 2011-03-17 Completed Unive rsity of Dosage 00:00:00 [facility] Influenza Virus 2011-02-10 Completed Universit y of Vaccine 00:00:00 [facility] Hep B, Adol or Pedi 2011-02-10 Completed Unive rsity of Dosage 00:00:00 [facility] Influenza Virus 2011-02-10 Completed Universit y of Vaccine 00:00:00 [facility] Hep B, Adol or Pedi 2011-02-10 Completed Unive rsity of Dosage 00:00:00 [facility] Influenza Virus 2011-02-10 Completed Universit y of Vaccine 00:00:00 [facility] Hep B, Adol or Pedi 2011-02-10 Completed Unive rsity of Dosage 00:00:00 [facility] PPD (TB) 2010-11-18 Completed University of 00:00:00 [facility] TDAP (ADACEL) 2010-11-18 Completed University of VACCINE 00:00:00 [facility] PPD (TB) 2010-11-18 Completed University of 00:00:00 [facility] TDAP (ADACEL) 2010-11-18 Completed University of VACCINE 00:00:00 [facility] PPD (TB) 2010-11-18 Completed University of 00:00:00 [facility] TDAP (ADACEL) 2010-11-18 Completed University of VACCINE 00:00:00 [facility] HEPATITIS A 2004-03-02 Completed University of 00:00:00 [facility] HEPATITIS A 2004-03-02 Completed University of 00:00:00 [facility] HEPATITIS A 2004-03-02 Completed University of 00:00:00 [facility] HEPATITIS A 2003-08-01 Completed University of 00:00:00 [facility] HEPATITIS A 2003-08-01 Completed University of 00:00:00 [facility] HEPATITIS A 2003-08-01 Completed University of 00:00:00 [facility] Pneumococcal 2001-10-04 Completed University o f Polysaccharide, 00:00:00 [facility] ical PPSV23 (PNEUMOVAX) [place] PPD (TB) 2001-10-04 Completed University of 00:00:00 [facility] Pneumococcal 2001-10-04 Completed University o f Polysaccharide, 00:00:00 [place] [facility] ical PPSV23 (PNEUMOVAX) Branch PPD (TB) 2001-10-04 Completed University of 00:00:00 [place] [facility] Pneumococcal 2001-10-04 Completed University o f Polysaccharide, 00:00:00 [place] [facility] ical PPSV23 (PNEUMOVAX) Branch PPD (TB) 2001-10-04 Completed University 00:00:00 [facility] Vital Signs Vital Name Observation Time Observation Value Comments Source Systolic blood 2021-12-13 06:39:53 170 mm[Hg] Univer sity of pressure [facility] Diastolic blood 2021-12-13 06:39:53 96 mm[Hg] Unive rsity of pressure [facility] Heart rate 2021-12-13 06:39:53 60 /min Universi ty of [facility] Respiratory rate 2021-12-13 06:39:53 18 /min [facility] saturation in 2021-12-13 06:39:53 98 /min [facility] Arterial blood by [facility] Pulse oximetry Branch Body temperature 2021-12-13 04:57:00 36.56 Amina Univ ersity of [facility] Body height 2021-12-13 04:57:00 162.6 cm Universi ty of [facility] Body weight 2021-12-13 04:57:00 90.719 kg Universi ty [facility] BMI 2021-12-13 04:57:00 34.33 kg/m2 Universi ty [facility] Systolic blood 2021-08-21 13:13:00 191 mm[Hg] Univer sity of pressure [facility] Diastolic blood 2021-08-21 13:13:00 99 mm[Hg] Unive rsity of pressure [facility] Heart rate 2021-08-21 13:13:00 52 /min Universi ty of [facility] Body temperature 2021-08-21 13:11:00 36.5 Amina Univ ersity of [facility] Respiratory rate 2021-08-21 13:11:00 16 /min Univ ersity of [facility] Body height 2021-08-21 13:11:00 162.6 cm Universi ty of [facility] Body weight 2021-08-21 13:11:00 93.759 kg Universi ty of [facility] BMI 2021-08-21 13:11:00 35.48 [facility]/m2 [facility] Oxygen saturation in 2021-08-21 13:11:00 95 /min [facility] Arterial blood by [facility] Pulse oximetry Branch Systolic blood 2021-07-14 15:18:00 142 mm[facility]Hg[facility] Diastolic blood 2021-07-14 15:18:00 76 mm[Hg] [facility] Heart rate 2021-07-14 15:18:00 61 /min [facility] Body height 2021-07-14 15:18:00 162.6 cm [facility] 2021-07-14 15:18:00 94.802 kg [facility] BMI 2021-07-14 15:18:00 35.87 kg/m2 [facility] Systolic blood 2020-12-08 15:48:00 125 mm[Hg] Method [facility] pressure Diastolic blood 2020-12-08 15:48:00 76 mm[Hg] [facility] pressure Heart rate 2020-12-08 15:48:00 64 /min [facility] Body temperature 2020-12-08 15:48:00 36.61 Amina [facility] Respiratory rate 2020-12-08 15:48:00 17 /min [facility] Body height 2020-12-08 15:48:00 162.6 cm [facility] Body weight 2020-12-08 15:48:00 98.884 kg [facility] BMI 2020-12-08 15:48:00 37.42 kg/m2 [facility] Oxygen saturation in 2020-12-08 15:48:00 97 /min [facility] Arterial blood by Pulse oximetry Respitory Rate 2020-08-30 13:00:00 Memori al [place] Systolic (mm Hg) 2020-08-30 13:00:00 Caesar rial [place] Diastolic (mm Hg) 2020-08-30 13:00:00 Mem orial [place] Systolic (mm Hg) 2020-08-30 11:00:00 Caesar rial [place] Diastolic (mm Hg) 2020-08-30 11:00:00 Mem orial [place] Temperature Oral (F) 2020-08-30 11:00:00 98.4 F [facility] [place] Respitory Rate 2020-08-30 11:00:00 [place]ari[place] andre [place] Respitory Rate 2020-08-30 10:00:00 [place] andre [place] Systolic (mm Hg) 2020-08-30 10:00:00 Caesar cheung [place] Diastolic (mm Hg) 2020-08-30 10:00:00 Mem orial [place] Temperature Oral (F) 2020-08-30 00:00:00 96.9 F [facility] [place] Temperature Oral (F) 2020-08-29 11:26:00 97.6 F [facility] [place] Height 2020-08-29 10:30:00 162.56 cm [facility] [place] Weight 2020-08-29 10:30:00 [facility] [place] BMI Calculated 2020-08-29 10:30:00 [place] andre Marty Procedures Procedure Date / Time Performing Clinician Source Performed CT CERVICAL SPINE WO 2021-12-13 05:48:16 Bill Guo Kier[facility] CONTRAST [facility] CT HEAD WO CONTRAST 2021-12-13 05:48:16 Bill Guo [facility] CT LUMBAR SPINE WO 2021-12-13 05:48:16 Bill Guo [facility] CONTRAST [facility] CT THORACIC SPINE WO 2021-12-13 05:48:16 Bill Guo K[facility] CONTRAST [facility] ECG 12-LEAD 2021-07-14 15:14:00 Elan Lira [facility] [id number] 2021-06-17 00:00:00 [facility] GASTROINTESTINAL PANEL 2020-12-08 22:21:00 Eliseo Arce [facility] XR ABDOMEN 1 VW 2020-12-08 18:06:32 Eliseo Arce Ho spital OR [place] < 1 HOUR 2020-09-05 22:39:00 Eliseo Arce spital SURGICAL PATHOLOGY REQUEST 2020-09-05 21:54:00 Eliseo Arce [facility] XR CHEST 1 VW PORTABLE 2020-09-05 19:55:00 Eliseo Arce [facility] DISCHARGE PATIENT 2020-09-05 17:27:55 Lucas Harris [facility] AR AN ELECTIVE 2020-09-05 16:47:23 Kirit [facility] ENDOTRACHEAL AIRWAY EGD, INTRAOPERATIVE 2020-09-05 16:27:00 Eliseo Arce [facility] PARTIAL THROMBOPLASTIN 2020-09-05 15:04:00 Sarai Maharaj [facility] TIME (PTT) M. PROTHROMBIN TIME WITH INR 2020-09-05 15:04:00 Mindy Maharaj [facility] M. Plan of Care Planned Activity Planned Date Details Comments Source Future Scheduled 2021-08-26 Screening for [facility] Test 13:02:23 malignant neoplasm of cervix (procedure) [code = 668892453] Future Scheduled 2021-08-26 BREAST CANCER [facility] Test 13:02:23 SCREENING [code = BREAST CANCER SCREENING] Future Scheduled 2021-08-26 COLONOSCOPY SCREENING [facility] Test 13:02:23 [code = COLONOSCOPY SCREENING] Future Scheduled 2021-08-26 Screening for [facility] Test 13:02:23 malignant neoplasm of lung (procedure) [code = 971223871] Future Scheduled 2021-08-26 SHINGLES VACCINES (#1) [facility] Test 13:02:23 [code = SHINGLES VACCINES (#1)] Future Scheduled 2021-08-26 COVID-19 VACCINE (3 - [facility] Test 13:02:23 Pfizer risk 4-dose series) [code = COVID-19 VACCINE (3 - Pfizer risk 4-dose series)] Future Scheduled 2021-08-26 65+ PNEUMOCOCCAL [facility] Test 13:02:23 VACCINE (4 of 4 - PPSV23) [code = 65+ PNEUMOCOCCAL VACCINE (4 of 4 - PPSV23)] Future Scheduled 2021-08-26 INFLUENZA VACCINE [facility] Test 13:02:23 [code = INFLUENZA VACCINE] Encounters Start End Encounter Admission Attending Care Care Encounter Source Date/Time Date/Time Type Type Clinicians Facility Department ID 2021-11-16 Outpatient [facility] [id number] [place] 10:32:47 [id number] Health 2021-08-03 Inpatient WINTER Lund [id number] [facility] 11:30:00 Mike [id number] [facility] 2021-07-14 Outpatient JENNY [facility] [id number] [place] 09:33:51 [facility] 2021-06-16 Inpatient WINTER Leal [id number] [facility] 08:30:00 Mike [id number] [facility] 2021-06-15 Inpatient WINTER Leal [id number] [facility] 10:30:00 Mike [id number] [facility] 2022-02-26 2022-02-26 Outpatient Marika [facility] [id number] Univers 08:30:00 08:30:00 SANTIAGO [id number] [facility] 2022-02-26 2022-02-26 Outpatient Marika [facility] [id number] Univers 08:30:00 08:30:00 SANTIAGO [facility] 2021-12-12 2021-12-13 Emergency X Bill GUO [facility] ERT [id number] Univers 23:53:00 [facility]:52:[facility] 2021-12-12 2021-12-13 Emergency Bill Guo [facility] [id number] Univers 23:53:00 01:52:00 Kiersten BULLOCK [id number] i ty [facility] 4.2.7.2.686 [facility] [id number] [facility] 084 Branch 2021-11-20 2021-11-[address] [facility] UNIVERSIT [id number] Univers 09:45:00 10:00:00 Visit Santiago Cardenas [facility] [id number] ity of [facility] [id number] [facility] [id number] [facility] 316 Branch 2021-11-20 2021-11-20 Outpatient Marika CARDENAS [facility] [id number] Univers 09:45:00 09:45:00 SANTIAGO [facility] 2021-11-20 2021-11-20 Outpatient [facility] [id number] Univers 09:45:00 09:45:00 [id number] [facility] 2021-08-21 2021-08-21 Office [facility] [id number] [facility] 08:30:00 09:00:00 Visit Santiago [facility] [id number] i [facility] [id number] Richi bach [id number] [facility] 089 Branch 2021-08-05 2021-08-05 Outpatient RAUL Lund, EDUARDOCL [facility]L [id number] [facility] 05:24:00 05:24:00 Mike 31 [facility] 2021-08-05 2021-08-05 Outpatient RAUL Lund, EDUARDOCL [facility] [id number] [facility] 05:24:00 05:24:00 Mike [id number] [facility] 2021-07-14 2021-07-14 Office KIMBERLEY Lira 6400 [id number] [place] 08:45:00 09:34:[address] [id number] Health 9.2.7.2.686 [id number] 1 2021-07-09 2021-07-09 Telephone KIMBERLEY Layton 6400 1.2.840.114 [id number] [place] 00:00:00 00:00:[address] [id number] Health 9.2.7.2.686 [id number] 1 2021-06-17 2021-06-17 Inpatient RAUL Lund, HCACL INTE.02 [id number] [facility] 10:56:00 14:36:00 Mike [id number] [facility] 2021-06-17 2021-06-17 Inpatient RAUL Lund, HCACL INTE.02 [id number] [facility] 10:56:00 14:36:00 Mike 47 [facility] 2021-04-28 2021-04-28 Telephone Jailyn 1Chelsie2.840.6 [id number] Methodi 00:00:00 00:00:[id number] 3.430.2.7 Hospit a .3.554952 l .8 2021-03-31 2021-03-31 Qi Coyle2.840.1 [id number] 21 [id number] Methodi 00:00:00 00:00:00 Only Sarai Lieberman 45209.1.1 979 s t 3.430.2.7 Hospit a .3.656389 l .8 2021-03-24 2021-03-24 [facility] 1.2.840.2 [id number] Methodi 00:00:00 00:00:[id number] 3.430.2.7 Hospit a .3.654753 l .8 2021-01-19 2021-01-19 Telephone [place], 1.2.840.1 [id number] Methodi 00:00:00 00:00:[address] 3.430.2.7 Hospit a .3.142215 l .8 2020-12-12 2020-12-12 Office Hematpour, [facility] 6400 1.2.840.114 [id number] 07:42:02 08:18:[address] 350.1.13.58 9.2.7.2.686 [id number] 1 2020-12-09 2020-12-09 Telephone [facility], 1.2.840.1 [id number] Methodi 00:00:00 00:00:00 Sarai Lieberman 52873.1.1 316 s t 3.430.2.7 Hospit a .3.140529 l .8 2020-12-08 2020-12-08 [facility], 1.2.840.1 [id number] [id number] Methodi 12:35:54 23:59:00 Encounter Ray 90811.1.[address] 3.430.2.7 Hospit a .3.913312 l .8 2020-12-08 2020-12-08 [facility], 1.2.840.1 [id number] Methodi 17:25:00 17:30:[address] 3.430.2.7 Hospit a .3.657136 l .8 2020-12-08 2020-12-08 Office Jailyn, 1.2.840.1 [id number] Methodi 10:30:00 11:39:56 Visit Ray 73221.1.[address] 3.430.2.7 Hospit a .3.657593 l .8 2020-12-08 2020-12-08 Travel 1.2.840.1 [id number] [id number] Methodi 00:00:00 00:00:[address] 3.430.2.7 0.2.7.3.698 Ho spita .3.121695 084.8 l .8 2020-12-02 2020-12-[address] [facility] 1.2.840.114 [id number] 10:20:06 10:36:19 Visit HEALTH 350.1.13.10 CLINICS 4.2.7.2.686 [id number] 2020-11-25 2020-11-25 Office Devin [facility] 1.2.840.114 [id number] 11:06:30 11:58:14 Visit Robbi R [employer]SPORTATION [employer]ITY SCREENER 350.1.13.10 [facility] 4.2.7.2.686 MATERNAL [id number] & CHILD 107 [facility] 2020-11-25 2020-11-25 [facility] 1.2.380.224 [id number] 00:00:00 00:00:00 [facility] HEALTH 350.1.13.10 CLINICS 4.2.7.2.686 [id number] 2020-11-25 2020-11-25 [facility] [id number] [id number] 00:00:00 00:00:00 Rosluisa R TRANSPORTATION SECURITY SCREENER 350.1.13.10 REGIONAL 4.2.7.2.686 MATERNAL [id number] & CHILD 107 [facility] 2020-11-14 2020-11-14 Abstract Clark, 1.2.840.1 [id number] Methodi 00:00:00 00:00:[address] 3.430.2.7 Hospit a .3.934750 l .8 2020-11-14 2020-11-14 Telephone Clark, 1.2.840.1 [id number] Methodi 00:00:00 00:00:[address] 3.430.2.7 Hospit a .3.703850 l .8 2020-11-07 2020-11-07 Telephone Diana, [facility] 6400 1.2.840.114 [id number] 00:00:00 00:00:[address] 350.1.13.58 9.2.7.2.686 [id number] 1 2020-10-27 2020-10-27 Telephone Cade, 1.2.840.5 [id number] Methodi 00:00:00 00:00:[address] 3.430.2.7 Hospit a .3.761531 l .8 2020-10-24 2020-10-24 Telephone Clark, 1.2.840.1 [id number] 2099 [id number] Methodi 00:00:00 00:00:[address] 3.430.2.7 Hospit a .3.179778 l .8 2020-10-06 2020-10-12 [facility], 1.2.840.1 [id number] Methodi 15:30:00 00:08:46 ne Ray 70192.1.[address] 3.430.2.7 Hospit a .3.747796 l .8 2020-09-30 2020-09-30 Telephone Jeredimasaleshia, 1.2.840.1 [id number] Methodi 00:00:00 00:00:[address] 3.430.2.7 Hospit a .3.367048 l .8 2020-09-21 2020-09-21 Travel 1.2.840.1 1.2.840.093 5399 [id number] Methodi 00:00:00 00:00:[address] 3.430.2.7 0.2.7.3.698 Ho spita .3.877046 084.8 l .8 2020-09-06 2020-09-06 [facility] 1.2.840.1 [id number] [id number] Methodi 17:42:30 23:59:[address] 3.430.2.7 Hospit a .3.939853 l .8 2020-09-06 2020-09-06 [facility], 1.2.840.1 [id number] 2100 [id number] Methodi 16:50:00 17:41:00 Encounter Ray [address].1.[address] 3.430.2.7 Hospit a .3.578670 l .8 2020-09-05 2020-09-05 [facility], 1.2.840.1 [id number] 2099 [id number] Methodi 09:17:00 19:45:00 Encounter Ray [address]67.1.[address] 3.430.2.7 Hospit a .3.338220 l .8 2020-09-05 2020-09-05 Surgery [facility], 1.2.840.1 [id number] Methodi 11:30:00 13:15:[address] 3.430.2.7 Hospit a .3.262730 l .8 2020-09-05 2020-09-05 Anesthesia [facility], 1.2.840.1 [id number] 981 [id number] Methodi 11:27:00 12:20:00 Event Anupamdarrellthi 61209.1.1 243 s t V. 3.430.2.7 Hospit a .3.260947 l .8 2020-09-05 2020-09-05 Travel 1.2.840.1 1.2.638.055 5498 [id number] Methodi 00:00:00 00:00:[address] 3.430.2.7 0.2.7.3.698 anayta .3.730616 084.8 l .8 2020-09-04 2020-09-04 Telephone [facility], 1.2.840.1 [id number] Methodi 00:00:00 00:00:00 Sarai Lieberman 19117.1.1 762 s t 3.430.2.7 Hospit a .3.451056 l .8 2020-09-02 2020-09-02 Telephone [facility], 1.2.840.1 [id number] Methodi 00:00:00 00:00:00 Sarai Lieberman 02540.1.1 344 s t 3.430.2.7 Hospit a .3.087660 l .8 2020-08-29 2020-08-30 Bedded [facility] [id number] [facility] 10:20:00 14:10:00 Outpatient [facility] 00 l [facility] 2020-08-29 2020-08-30 Outpatient [facility] CAR [address] [facility] 05:20:00 09:10:00 [facility] Results Test Description Test Time Test Comments Results Result Comments Source Novel Coronavirus 2019 Inhouse 2021-08-03 18:08:00 Test Item Value Reference Range Interpretation Comme nts Novel Coronavirus 2018 Negative Negative Posit bruno results are indicative of the Inhouse (test code = presenc e kxGPQI-DqJ-1 RNA, clinical COVNONPUI) correlation wit h patient [...] qualitative detection of nucleic acid s from kzsBNVN-WrR-4 virus and diagn osis of SARS-CoV-2 virusinfection. It is an Emergency Use Authorization ( EUA) testauthorized by the U.S. FDA. BASIC METABOLIC [id number] 09:37:00 Test Item Value Reference Range Interpretation [...] = 9.0 mg/dL 8.0-10.5 N CA) PROTHROMBIN [id number] 09:32:00 Test Item Value Reference Range Interpretation Comments PROTHROMBIN TIME 12.7 SECONDS 9.3-12.9 N PATIENT (test code = PTP) INTERNATIONAL NORMAL 1.1 0.8-1.2 N TARGET INR BY RATIO (test code = INDICATIO N Indication INR) INR1. Prophylax is of venous thrombos is 2.0 - 3.0 (orthope dic surgery), Proph ylaxis of venous throm bosis (other than hig h-risk surgery), Treat ment of Deep Vein Thrombosis/Pulm onary Embolism, Preve ntion of systemic emb olism - Tissue heart va lves, Acute Myocardia l Infarction (to prevent systemic emboli sm), Valvular heart disease, Atrial Fibrillation, Bileaflet mecha nical valve in aortic position.2. Mec hanical prosthetic valv es (high risk), 2. 5 - 3.5 Presence of Lup us Anticoagulant o r Antiphospholipi d Antibodies, Pre vention of systemic emb olism - Acute Myocardia l Infarction (to prevent recurrent infar ct). 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 1955 Sex: F FAX: Carmenza Kelly DO [phone] [place]: St: ADM FAX: Mike Scales MD [phone] FAX: Bamhan Chopra [phone] Name: LIO WATTS : 1955 Age/S: 66/F [address] [place] [address] Unit #: [id number] Loc: [place] [address] Phys: Juwan Choprann Jess [facility] Acct: [id number] Dis Date: Status: ADM IN PHONE #: [phone] Exam Date: 06/17/2021 1320 FAX #: [phone] Reason: WATCHMAN EXAMS: CPT CODE: [id number] XR CHEST 1 V 73162 PROCEDURE INFORMATION: Exam: XR Chest Exam date and time: 06/17/2021 12:09 PM Age: 66 years old Clinical indication: Other: Watchman TECHNIQUE: Imaging protocol: XR of the chest. Views: 1 view. Other technique: AP portable chest obtained, positioning not indicated as supine or otherwise. COMPARISON: DX XR CHEST 2 V 06/16/2021 10:52 AM FINDINGS: Limitations: Portable technique and lordotic positioning. Tubes, catheters and devices: EKG leads overlie the chest.Lungs: Lung volumes are diminished. Hypoventilatory changes with scattered bandlike opacities compatible with subsegmental atelectasis or scarring. There is no consolidation. Technically limited assessment of the lateral left base. Nodular opacities over the apices related to anterior 1st ribs and lordotic projection. Pleural spaces: There is no pneumothorax or gross pleural effusion. Heart/Mediastinum: Mild prominence of the [...] and signed by: Lambert Vega M.D. CC: Carmenza Rahman DO; Mike Lund MD; Bahman Chopra Technologist: RT Taylor(R) Trnscrd Date/Time/By: 06/17/2021 (7411) : By: [email or web address] Orig Print D/T: S: 06/17/2021 (7828) PAGE 1 Signed ReportCOVID 19 Asymptomatic IH AG 2021-06-16 12:29:00 Test Item Value Reference Range Interpretation [...] high or waivedcomplexit y tests. BASIC METABOLIC [id number] 11:37:00 Test Item Value Reference Range Interpretation [...] code = 9.0 mg/dL 8.0-10.5 N CA) [id number] 11:37:00 Test Item Value Reference Range Interpretation Comments PREALBUMIN (test code = PREALB) 24.3 mg/dL 16.0-40.0 N PROTHROMBIN [id number] 11:03:00 Test Item Value Reference Range Interpretation Comments PROTHROMBIN TIME 12.0 SECONDS 9.3-12.9 N PATIENT (test code = PTP) INTERNATIONAL NORMAL 1.1 0.8-1.2 N TARGET INR BY RATIO (test code = INDICATIO N Indication INR) INR1. Prophylax is of venous thrombos is 2.0 - 3.0 (orthoped ic surgery), Proph ylaxis of venous throm bosis (other than hig h-risk surgery), Treat ment of Deep Vein Thrombosis/Pulm onary Embolism, Preve ntion of systemic emb olism - Tissue heart va lves, Acute Myocardia l Infarction (to prevent systemic emboli sm), Valvular heart disease, Atrial Fibrillation, Bileaflet mecha nical valve in aortic position.2. Mec hanical prosthetic valv es (high risk), 2 .5 - 3.5 Presence of Lupus Anticoagulant o r Antiphospholipi d Antibodies, Pre vention of systemic emb olism - Acute Myocardia l Infarction (to prevent recurrent infar ct). CBC W/AUTO [id number] 10:59:00 Test Item Value Reference Range Interpretation [...] 0.0-0.1 N NRBC#) - XR CHEST 2 [id number] 00:00:00 [facility] 1955 Sex: F FAX: Carmenza Kelly DO [phone] [place]: St: PRE FAX: Mike Scales MD [phone] Name: LIO WATTS [facility] : 1955 Age/S: 66/F [address] [place], [place] [address]vd Unit #: [id number] Loc: [place] [address] Phys: Mike Lund MD Acct: [id number] Dis Date: Status: PRE [facility] PHONE #: [phone] Exam Date: 06/16/20211119 FAX #: [phone] Reason: PREOP EXAMS: CPT CODE: [id number] XR CHEST 2 V 01400 PROCEDURE INFORMATION: Exam: XR Chest Exam date and time: 06/16/2021 10:52 AM Age: 66 years old Clinical indication: Pre-operative exam; Respiratory screening [...] No gross acute findings. IMPRESSION: No acute cardiopulmonaryfindings at 1134 Reported andsigned by: Selene Collins D.O. CC: Lele Rahman DO; Mike Lund MD Technologist: Danielle Nix RT(R) Trnscrd Date/Time/By: 06/16/2021 (3403) : By: [email or web address] Orig Print D/T: S: 06/16/2021 (3738) PAGE 1 Signed ReportGastrointestinal [id number] 04:35:05 Test Item Value Reference Interpretation Comments [...] Rotavirus PCR (test Not Detected code = 6019108) Salmonella PCR (test Not Detected code = [...] PCR Not Detected (test code = 7124) [facility] [id number] 19:30:47 Test Item Value Reference Range Interpretation Comments Case number (test [id number] code = 7845435) Surgical pathology See link below for PDF report (test code = Lab Report 2255) Result status (test This is Supplemental code = 8555586) Report for [id number] [facility]2021-04-09 16:31:00 Test Item Value Reference Range Interpretation Comments POC Activated Clotting Time (test code 153 s = POC Activated Clotting Time) [place] 239001-04-09 16:31:00 Test Item Value Reference Range Interpretation Comments POC Activated Clotting Time (test code 153 s = POC Activated Clotting Time) [place] 239001-04-09 16:31:00 Test Item Value Reference Range Interpretation Comments POC Activated Clotting Time (test code 153 s = POC Activated Clotting Time) [place] 239001-04-09 16:31:00 Test Item Value Reference Range Interpretation Comments POC Activated Clotting Time (test code 153 s = POC Activated Clotting Time) [place] 239001-04-09 16:31:00 Test Item Value Reference Range Interpretation Comments POC Activated Clotting Time (test code 153 s = POC Activated Clotting Time) [place] 239001-04-09 16:31:00 Test Item Value Reference Range Interpretation Comments POC Activated Clotting Time (test code 153 s = POC Activated Clotting Time) [place] 239001-04-09 16:31:00 Test Item Value Reference Range Interpretation Comments POC Activated Clotting Time (test code 153 s = POC Activated Clotting Time) [place] 239001-04-09 14:37:00 Test Item Value Reference Range Interpretation Comments POC Activated Clotting Time (test code 454 s = POC Activated Clotting Time) [address]04-09 14:37:00 Test Item Value Reference Range Interpretation Comments POC Activated Clotting Time (test code 454 s = POC Activated Clotting Time) [place] 239001-04-09 14:37:00 Test Item Value Reference Range Interpretation Comments POC Activated Clotting Time (test code 454 s = POC Activated Clotting Time) [address]04-09 14:37:00 Test Item Value Reference Range Interpretation Comments POC Activated Clotting Time (test code 454 s = POC Activated Clotting Time) [address]04-09 14:37:00 Test Item Value Reference Range Interpretation Comments POC Activated Clotting Time (test code 454 s = POC Activated Clotting Time) [place] 239001-04-09 14:37:00 Test Item Value Reference Range Interpretation Comments POC Activated Clotting Time (test code 454 s = POC Activated Clotting Time) [facility] ClubDigrzhuKVXUNCRXAD7621-85-75 14:37:00 Test Item Value Reference Range Interpretation Comments POC Activated Clotting Time (test code 454 s = POC Activated Clotting Time) [facility] ClubLmkmogfQVRLWSHTHR6203-09-32 14:13:00 Test Item Value Reference Range Interpretation Comments POC Activated Clotting Time (test code 354 s = POC Activated Clotting Time) [facility] ClubCmembtmLQXHEOPDTR9053-57-45 14:13:00 Test Item Value Reference Range Interpretation Comments POC Activated Clotting Time (test code 354 s = POC Activated Clotting Time) [facility] ClubNexlocbWWFJDECFJL5168-50-05 14:13:00 Test Item Value Reference Range Interpretation Comments POC Activated Clotting Time (test code 354 s = POC Activated Clotting Time) [facility] ClubAubxdwrLXDCKBRHBH6829-71-05 14:13:00 Test Item Value Reference Range Interpretation Comments POC Activated Clotting Time (test code 354 s = POC Activated Clotting Time) [facility] ClubScndesnBUKXPJPEHX5010-07-93 14:13:00 Test Item Value Reference Range Interpretation Comments POC Activated Clotting Time (test code 354 s = POC Activated Clotting Time) [facility] ClubAnqqvkrMYSLRGMHKC6234-00-08 14:13:00 Test Item Value Reference Range Interpretation Comments POC Activated Clotting Time (test code 354 s = POC Activated Clotting Time) [facility] ClubGsvnvkyENHHQSFHXE1471-38-64 14:13:00 Test Item Value Reference Range Interpretation Comments POC Activated Clotting Time (test code 354 s = POC Activated Clotting Time) [facility] VJJGCXY1760-67-77 10:37:00Negative (08/29/20 5:37 AM) [facility]CHE[facility] RAWXK1648-65-22 10:37:48203Xslqbvaf HermannCHEM PANEL 2020-08-29 10:37:0028[facility] HermannCHEM GINCQ4505-90-20 10:37:001.01[facility] HermannCHEM RBXYQ3214-61-22 10:37:14587Bqsfvzys HermannCHEM IWCJO0363-48-25 10:37:003.8[facility] HermannCHEM TUPFR8931-66-70 10:37:36034Kxhggwrf HermannCHEM FQXQV4318-07-56 10:37:0028[facility] HermannCHEM WNEXM7918-40-17 10:37:009.8 [facility] HermannCHEM FVLQR4537-54-70 10:37:0011.8[facility] HermannCHEM PANEL 2020-08-29 10:37:0059Mem[facility] HermannCHEM ROKVL1476-07-92 10:37:002.9[facility] LyvpbeqQUHRDUMYJI9043-65-65 10:37:006.8[facility] JxhuggrRSLLCAQJJO3627-27-32 10:37:004.47[facility] DtbikjwZOVHBDFVPG7256-83-90 10:37:0010.6[facility] WCONHAQOAR5680-12-06 10:37:0034.0[facility] HblireuOGLNHMOYWG5750-67-49 10:37:00 76.1[facility]orial HacttpePRQMPMGVOX8162-82-95 10:37:00 Test Item Value Reference Range Interpretation Comments MCH (test code = MCH) 23.8 pg 27.0-31.0 [facility] DwyysgsYQSMTGNXCB7467-87-55 10:37:0031.3[facility] HermannHEMATOLOGY 2020-08-29 10:37:0018.2[facility] WrecfciMMUSOMXQRA4034-02-32 10:37:64967Xoibbwoh EemugiqSSKTAWJQVX7831-47-14 10:37:007.5[facility] UogpotdVQLJGUIAAR0999-41-13 10:37:00 Test Item Value Reference Range Interpretation Comments PT (test code = PT) 12.8 s 12.0-14.7 [facility] TurqrhqFFVZIVKCRE3364-41-71 10:37:00 Test Item Value Reference Range Interpretation Comments INR (test code = INR) 0.97 1 0.85-1.17 [facility] HxbrtenHKERBJFGLM9371-78-22 10:37:00 Test Item Value Reference Range Interpretation Comments PTT (test code = PTT) 25.0 s 22.9-35.8 [facility] BhhnuwaPYVEHLRXGA4697-97-77 10:37:0070.5[facility] HermannHEMATOLOGY 2020-08-29 10:37:0018.8[facility] TrezctcUMZPZQLPGK2528-71-03 10:37:009.5[facility] ZjfkzorPUOJRMCQXL6232-27-78 10:37:000.9[facility] DsujolwRWSDGIJDMJ4203-96-42 10:37:000.3[facility] YlnqokjNYGHINCQLE1367-42-47 10:37:004.8[facility] YCWYRILJVL4665-62-18 10:37:001.3[facility] DblipgiYCZQVVNIPB4205-12-22 10:37:000.6 [facility] IohwaktCVKSSDOSVP9399-00-29 10:37:000.1[facility] HermannHEMATOLOGY 2020-08-29 10:37:001+ *ABN*(08/29/20 5:37 AM)[facility] MwzfenaTQXUCUAQBY9007-37-72 10:37:00Not Detected (08/29/20 5:37 AM)[facility] HermannBLOOD BANK RESULTS 2020-08-29 10:37:00Negative (08/29/20 5:37 AM)[facility] HermannCHEM VWLZQ2777-45-01 10:37:47557Xvgbrnvj HermannCHEM CWCZS9487-67-06 10:37:0028[facility] HermannCHEM GXIJJ6031-66-09 10:37:001.01[facility] HermannCHEM FSALC5815-26-51 10:37:66904 [facility] HermannCHEM IYUDS8051-92-64 10:37:003.8[facility] HermannCHEM PANEL 2020-08-29 10:37:95170Zgevrnem HermannCHEM OUCGP8457-45-78 10:37:0028[facility] HermannCHEM AOWAH0535-72-53 10:37:009.8[facility] HermannCHEM OHTVX6438-01-45 10:37:0011.8[facility] HermannCHEM IBXWM9890-16-16 10:37:0059[facility] HermannCHEM ARMVX1442-17-59 10:37:002.9[facility] JtrxqtrJWUIGQBEDD2042-18-16 10:37:006.8 Memorial GdfabhvYVDIKMTLIP3907-32-07 10:37:004.47[facility] HermannHEMATOLOGY 2020-08-29 10:37:0010.6[facility] OuaqntsINJPKSRBAD2173-54-23 10:37:0034.0[facility] TnpcqjfNYSALZMERL7112-98-57 10:37:0076.1[facility] GlnltxhBNNSOLFPIJ8041-51-58 10:37:00 Test Item Value Reference Range Interpretation Comments MCH (test code = MCH) 23.8 pg 27.0-31.0 Memorial JybofbbKIXMYDAGVG8290-60-86 10:37:0031.3[facility] HermannHEMATOLOGY 2020-08-29 10:37:0018.2[facility] XexrjprHZCXNCFUDM0629-14-58 10:37:83701Dzrylnvz FhksosvPJKIZWAUCV9026-26-89 10:37:007.5[facility] CigkyhxIQLDVDHLPD5358-02-87 10:37:00 Test Item Value Reference Range Interpretation Comments PT (test code = PT) 12.8 s 12.0-14.7 Memorial OxkqfkqYIUNYPILOM9882-62-15 10:37:00 Test Item Value Reference Range Interpretation Comments INR (test code = INR) 0.97 1 0.85-1.17 [facility] YlasmtxLNWIXDRRTD6269-64-26 10:37:00 Test Item Value Reference Range Interpretation Comments PTT (test code = PTT) 25.0 s 22.9-35.8 [facility] PyoudofLVRXZYLYDL4945-76-36 10:37:0070.5[facility] HermannHEMATOLOGY 2020-08-29 10:37:0018.8[facility] JviyduuZUVWFHSSTV6482-13-65 10:37:009.5[facility] FhiaqsuXHFRZPHWRJ4418-68-14 10:37:000.9[facility] YoobuqoPMYIJJWRJK8720-77-67 10:37:000.3[facility] MzybuviITJEDDGGDA0267-37-07 10:37:004.8[facility] Marty QOETLRKIGA5583-77-77 10:37:001.3[facility] CtpehitVGIWMACILY1874-24-41 10:37:000.6 [facility] PiibuupIBMHKJPLXN5587-38-74 10:37:000.1[facility] HermannHEMATOLOGY 2020-08-29 10:37:001+ *ABN*(08/29/20 5:37 AM)[facility] TgoxxmvPRGRQXUZTA5902-54-94 10:37:00Not Detected (08/29/20 5:37 AM)[facility] HermannBLOOD BANK RESULTS 2020-08-29 10:37:00Negative (08/29/20 5:37 AM)[facility] HermannCHEM YSCQQ8024-68-96 10:37:60470Ywriavsb HermannCHEM ZDALR1208-38-36 10:37:0028[facility] HermannCHEM LCUNR0127-55-76 10:37:001.01[facility] HermannCHEM JQNIQ3504-46-14 10:37:90628 [facility] HermannCHEM PHHWR7794-96-47 10:37:003.8[facility] HermannCHEM PANEL 2020-08-29 10:37:38455Wspuhmeq HermannCHEM LLKYA0151-66-40 10:37:0028[facility] HermannCHEM UFORJ7552-71-98 10:37:009.8[facility] HermannCHEM DYNRS6707-99-96 10:37:0011.8[facility] HermannCHEM SSYNZ9976-53-48 10:37:0059[facility] HermannCHEM WBEZF2311-06-59 10:37:002.9[facility] KrxzcwzORIEBNRUWZ9811-64-23 10:37:006.8 Memorial MptmgypGOKURQRRBG7144-44-34 10:37:004.47[facility] HermannHEMATOLOGY 2020-08-29 10:37:0010.6[facility] EhqvlodPISWVJXTFW7907-44-06 10:37:0034.0[facility] IvhddzpALCHXBKAJS6005-40-46 10:37:0076.1[facility] AqyhqgyAUEZMSVJDJ1905-83-08 10:37:00 Test Item Value Reference Range Interpretation Comments MCH (test code = MCH) 23.8 pg 27.0-31.0 Memorial FfmlvdkMCWHBTVNAI6076-99-50 10:37:0031.3[facility] HermannHEMATOLOGY 2020-08-29 10:37:0018.2[facility] LuiymelLGCZPJFTLU5721-59-90 10:37:74065Uvikxusn CgmphshUTYYSYDQJM9319-85-10 10:37:007.5[facility] EnzsklrAPTZWWAYRH3474-57-08 10:37:00 Test Item Value Reference Range Interpretation Comments PT (test code = PT) 12.8 s 12.0-14.7 [facility] IscnlhbJGPXABBJMI3036-29-66 10:37:00 Test Item Value Reference Range Interpretation Comments INR (test code = INR) 0.97 1 0.85-1.17 [facility] EhswhqgKIOQZOZUGE2524-43-60 10:37:00 Test Item Value Reference Range Interpretation Comments PTT (test code = PTT) 25.0 s 22.9-35.8 Memorial GticuguKOJUASGWXF8182-21-68 10:37:0070.5[facility] HermannHEMATOLOGY 2020-08-29 10:37:0018.8[facility] AdjfoaqEXFZASRFAP1769-45-95 10:37:009.5[facility] SyupqfaWRIZGOPYKK9392-45-24 10:37:000.9[facility] WhrbprfPRNBACQEFS6371-55-57 10:37:000.3[facility] HijufcoCZTIWFEMEZ1872-95-81 10:37:004.8[facility] CFXXLIAMVP4228-78-48 10:37:001.3[facility] BqdfbymQEYDAMDMOR0977-53-03 10:37:000.6 Memorial BdmywszQMEOKQZANX1330-82-00 10:37:000.1[facility] HermannHEMATOLOGY 2020-08-29 10:37:001+ *ABN*(08/29/20 5:37 AM)[facility] AbxtsmhACQXDSCEBT2797-83-80 10:37:00Not Detected (08/29/20 5:37 AM)[facility] HermannBLOOD BANK RESULTS 2020-08-29 10:37:00Negative (08/29/20 5:37 AM)[facility] HermannCHEM YYTAY7416-63-90 10:37:31156Tpotdcvk HermannCHEM GCITD9555-26-18 10:37:0028[facility] HermannCHEM CLIBU5680-34-45 10:37:001.01[facility] HermannCHEM KBHZN1573-01-27 10:37:24583 [facility] HermannCHEM LKFBJ7196-98-00 10:37:003.8[facility] HermannCHEM PANEL 2020-08-29 10:37:59493Apldqwab HermannCHEM HYWTK4446-62-92 10:37:0028[facility] HermannCHEM LNWMC2936-64-00 10:37:009.8[facility] HermannCHEM ZLKRB1502-42-39 10:37:0011.8[facility] HermannCHEM RRXHJ6041-51-37 10:37:0059[facility] HermannCHEM ONPUP0297-39-90 10:37:002.9[facility] VjyfzgqODUCQOYSIK6302-06-38 10:37:006.8 [facility] CxqyptxMLBANZVJWP6557-25-17 10:37:004.47[facility] HermannHEMATOLOGY 2020-08-29 10:37:0010.6[facility] OorcvcrAWFZAJMZDV0993-45-64 10:37:0034.0[facility] GezerhoSBAINKFPLJ4874-94-50 10:37:0076.1[facility] BnqnlcnIAIIKMLPCS7919-56-93 10:37:00 Test Item Value Reference Range Interpretation Comments MCH (test code = MCH) 23.8 pg 27.0-31.0 [facility] SlroamvMSQQHXZLXG1025-86-18 10:37:0031.3[facility] HermannHEMATOLOGY 2020-08-29 10:37:0018.2[facility] DdfxrexKBJMLSRZUF2570-91-45 10:37:52258Hzwhqqqb HozhbpmKPRSGHLVOL7099-24-55 10:37:007.5[facility] KmuwzogWMYANAPYKH1263-97-73 10:37:00 Test Item Value Reference Range Interpretation Comments PT (test code = PT) 12.8 s 12.0-14.7 [facility] DowbpjhDDAJRMKLYP0575-35-77 10:37:00 Test Item Value Reference Range Interpretation Comments INR (test code = INR) 0.97 1 0.85-1.17 [facility] YeaagbhBDITEKBKJA7991-81-42 10:37:00 Test Item Value Reference Range Interpretation Comments PTT (test code = PTT) 25.0 s 22.9-35.8 [facility] FjxguafKAKOJKFFJY3883-41-92 10:37:0070.5[facility] HermannHEMATOLOGY 2020-08-29 10:37:0018.8[facility] FmwlnsfJCHKIRKGES2998-13-99 10:37:009.5[facility] CakmmyqQKZCZOOEUT0205-17-82 10:37:000.9[facility] WzaakkzARVWSOINED1809-74-00 10:37:000.3[facility] EuwbgsxBJRZFIHATR5657-71-69 10:37:004.8[facility] MUSHMYPHPX9736-23-80 10:37:001.3[facility] BlvzoqjXLUKQKMECA3236-26-20 10:37:000.6 [facility] GwtadjiVQZUZNMYSS9834-24-41 10:37:000.1[facility]annHEMATOLOGY 2020-08-29 10:37:001+ *ABN*(08/29/20 5:37 AM)[facility] WpgmoybYXOHNOFJLU5526-40-27 10:37:00Not Detected (08/29/20 5:37 AM)[facility]BL[facility] RESULTS 2020-08-29 10:37:00Negative (08/29/20 5:37 AM)[facility]annCHEM PBTTN3928-94-38 10:37:55348Znzklrma HermannCHEM ZXXPS9294-91-16 10:37:0028[facility]annCHEM WRJPF4685-13-82 10:37:001.01[facility]annCHEM GQWMM7517-24-38 10:37:15528 [facility]annCHEM GLGTC8857-85-39 10:37:003.8[facility]annCHEM PANEL 2020-08-29 10:37:27431Ivjzwjpe HermannCHEM FJNPF7736-66-74 10:37:0028[facility]annCHEM ZSJND5524-79-20 10:37:009.8[facility]annCHEM MQOQS9307-40-27 10:37:0011.8[facility]annCHEM ZQSHF3252-00-24 10:37:0059[facility]annCHEM HFTWT7855-83-93 10:37:002.9[facility] AwtoqnkJNYCMVUHXI7569-36-78 10:37:006.8 [facility] GkpszczFOQGUYOCZK2882-12-65 10:37:004.47[facility]annHEMATOLOGY 2020-08-29 10:37:0010.6[facility] WjajpazTNYKXIPHYO4630-57-62 10:37:0034.0[facility] FlexyuwSQMIEJZTJQ6894-32-16 10:37:0076.1[facility] QgngmiyGPHQIENIZN5923-67-07 10:37:00 Test Item Value Reference Range Interpretation Comments MCH (test code = MCH) 23.8 pg 27.0-31.0 [facility] SmhvqrlVMJJBSMACU2485-87-72 10:37:0031.3[facility]annHEMATOLOGY 2020-08-29 10:37:0018.2[facility] InatjbcGCITALQRNL4975-49-43 10:37:51565Vgpwntox CniewykPRWUSMVGIK1702-51-58 10:37:007.5[facility] IysjepbOHDETWIIFP0551-48-52 10:37:00 Test Item Value Reference Range Interpretation Comments PT (test code = PT) 12.8 s 12.0-14.7 [facility] LdqjmdeWWRSXHXAQN2317-40-55 10:37:00 Test Item Value Reference Range Interpretation Comments INR (test code = INR) 0.97 1 0.85-1.17 [facility] ItzayyjQITAPMMHHV9418-68-13 10:37:00 Test Item Value Reference Range Interpretation Comments PTT (test code = PTT) 25.0 s 22.9-35.8 [facility] NgxmiudDCNOFCCSDI3688-02-23 10:37:0070.5[facility]annHEMATOLOGY 2020-08-29 10:37:0018.8[facility] MvzrafzDUXIOPGLST8953-82-87 10:37:009.5[facility] LeafjkeUOGGWQQUUJ9874-26-62 10:37:000.9[facility] RvtywvhNSQTTQWHQF8076-17-93 10:37:000.3[facility] QjftbnoMRCIEGQSOE3524-08-55 10:37:004.8[facility] BHVWPMHBHT4418-96-26 10:37:001.3[facility] CqrezffBISCBEMDEC1149-04-33 10:37:000.6 [facility] ZlsgaanUCYVQWJHIA3092-90-81 10:37:000.1[facility]annHEMATOLOGY 2020-08-29 10:37:001+ *ABN*(08/29/20 5:37 AM)[facility] XnqhydlNQBANRTTAJ1857-29-01 10:37:00Not Detected (08/29/20 5:37 AM)[facility] HermannBLOOD BANK RESULTS 2020-08-29 10:37:00Negative (08/29/20 5:37 AM)[facility] HermannCHEM JBCPU0951-79-75 10:37:52470Aqihwcqq HermannCHEM AEOZY5487-71-77 10:37:0028[facility] HermannCHEM ADOMN3883-36-06 10:37:001.01[facility] HermannCHEM YOKVO1001-13-97 10:37:73939 [facility]annCHEM VCRJW6651-50-72 10:37:003.8[facility] HermannCHEM PANEL 2020-08-29 10:37:20576Rglfgzjh HermannCHEM GSDQU3309-08-60 10:37:0028[facility] HermannCHEM ENAKR3849-83-10 10:37:009.8[facility] HermannCHEM KBAAA4611-86-67 10:37:0011.8[facility] HermannCHEM HIHRN5979-06-76 10:37:0059[facility] HermannCHEM PYPEJ8151-87-16 10:37:002.9[facility] QwiechmEHEHPAHKBQ3934-49-00 10:37:006.8 [facility] HhfihlgVFFSOWTWRG0440-67-08 10:37:004.47[facility] HermannHEMATOLOGY 2020-08-29 10:37:0010.6[facility] FxjlgzzQVYHXRMHJK6945-51-88 10:37:0034.0[facility] IhyeqgcZFRUSGTIRD9959-15-83 10:37:0076.1[facility] HvtbiqlNCTVAYTUVH9507-41-92 10:37:00 Test Item Value Reference Range Interpretation Comments MCH (test code = MCH) 23.8 pg 27.0-31.0 [facility] QukzlemFTPPXEKGWP3865-47-26 10:37:0031.3[facility] HermannHEMATOLOGY 2020-08-29 10:37:0018.2[facility] LuoxpsyQQSYSPSOME4708-73-81 10:37:08728Zmaoboxk LsjdmmsJNMHWXDHBR5183-40-61 10:37:007.5[facility] ZbcfwqaALXXPQDXLJ9319-68-52 10:37:00 Test Item Value Reference Range Interpretation Comments PT (test code = PT) 12.8 s 12.0-14.7 [facility] KkpeivlNBVTWMVXTF1747-51-25 10:37:00 Test Item Value Reference Range Interpretation Comments INR (test code = INR) 0.97 1 0.85-1.17 [facility] EuipopjLFJPYTIQMI9335-77-54 10:37:00 Test Item Value Reference Range Interpretation Comments PTT (test code = PTT) 25.0 s 22.9-35.8 [facility] DqwcgdmSBNPQODEVH5103-17-32 10:37:0070.5[facility] HermannHEMATOLOGY 2020-08-29 10:37:0018.8[facility] KpxrvniJPWMRPBFHM6520-31-22 10:37:009.5[facility] HvbezfzRPPHMRBERS5695-31-71 10:37:000.9[facility] YjgthrrRAZOHJZVZT9282-49-75 10:37:000.3[facility] UcetjigSZUENLIGJU6223-78-76 10:37:004.8[facility] QWZCQRKORO0595-55-06 10:37:001.3[facility] YivpqiqMRKCIESDWQ6408-46-87 10:37:000.6 [facility] VxpmkkmUONSLMGETW8799-57-36 10:37:000.1[facility] HermannHEMATOLOGY 2020-08-29 10:37:001+ *ABN*(08/29/20 5:37 AM)[facility] TecwxbiJSCFOJNKQZ6970-97-30 10:37:00Not Detected (08/29/20 5:37 AM)[facility] HermannBLOOD BANK RESULTS 2020-08-29 10:37:00Negative (08/29/20 5:37 AM)[facility] HermannCHEM CAIMQ5657-28-72 10:37:42180Zrtcgndk HermannCHEM AJSYS7581-59-45 10:37:0028[facility] HermannCHEM INIIN0914-83-20 10:37:001.01[facility] HermannCHEM LBMFD1814-11-16 10:37:40715 [facility]annCHEM DLHML0142-91-14 10:37:003.8[facility] HermannCHEM PANEL 2020-08-29 10:37:48246Ubmmrtzj HermannCHEM SPCMB4935-84-34 10:37:0028[facility] HermannCHEM EEJVG9041-71-80 10:37:009.8[facility] HermannCHEM RSTZW8783-75-49 10:37:0011.8[facility] HermannCHEM TZTJO2523-36-44 10:37:0059[facility] HermannCHEM DUATT5556-29-74 10:37:002.9[facility] ItpqsaxTQPHJQNQPP0089-79-38 10:37:006.8 [facility] HamsubfKWLJBTIHDU4250-05-41 10:37:004.47[facility] HermannHEMATOLOGY 2020-08-29 10:37:0010.6[facility] CbxxnhlMBZMWLYHFA7185-64-31 10:37:0034.0[facility] YxtlvhaGARWOOCRAR6819-16-51 10:37:0076.1[facility] VeszshnBLMZQLYJEL3121-52-79 10:37:00 Test Item Value Reference Range Interpretation Comments MCH (test code = MCH) 23.8 pg 27.0-31.0 [facility] DxfbhwfURKGIMGBXS3831-56-55 10:37:0031.3[facility] HermannHEMATOLOGY 2020-08-29 10:37:0018.2[facility] PnmwddrEWHHPBESWD0623-55-45 10:37:52168Nbiidltz KfgwcxfYMFILWNFBB2468-24-98 10:37:007.5[facility] PxdepfuSTKMGTWRGY5527-61-91 10:37:00 Test Item Value Reference Range Interpretation Comments PT (test code = PT) 12.8 s 12.0-14.7 [facility] HelqxphSTVLVUYUXJ8286-93-24 10:37:00 Test Item Value Reference Range Interpretation Comments INR (test code = INR) 0.97 1 0.85-1.17 [facility] YeemwdxHJGIDGBSTF4413-37-52 10:37:00 Test Item Value Reference Range Interpretation Comments PTT (test code = PTT) 25.0 s 22.9-35.8 [facility] VhkskfwQJSHZBFQCQ2873-73-17 10:37:0070.5[facility] HermannHEMATOLOGY 2020-08-29 10:37:0018.8[facility] YtrucjfZGWFLTTJYA8667-18-66 10:37:009.5[facility] FnnxyvwECTYTBJSSC3881-49-57 10:37:000.9[facility] WqkcliwTXVDRQRTQA5390-24-48 10:37:000.3[facility] RkxqxenZCFGDYTBBV6549-80-73 10:37:004.8[facility] [place] IELSXCPEAB4401-62-11 10:37:001.3[facility] HnzbzuuDQOIIGIIYJ1545-06-19 10:37:000.6 [facility] XmrlhoxZCGCNEEGAK0245-92-78 10:37:000.1[facility] HermannHEMATOLOGY 2020-08-29 10:37:001+ *ABN*(08/29/20 5:37 AM)[facility] XwaxaxyIWYYHOZSTB8268-83-91 10:37:00Not Detected (08/29/20 5:37 AM)[facility],PCR, IN DDRJG6351-09-77 15:38:00 Test Item Value Reference Range Interpretation Comments FT (test code = CHTR) Not detected (qualifier Not Detected N value) FT (test code = Not detected (qualifier Not Detected N NGONO) value) FT (test code = TRVG) Not detected (qualifier Not Detected N value) URINALYSIS WITH KNMKEMDFDBY5821-86-18 10:57:00 Test Item Value Reference Range Interpretation Comments Color (test code = UCOLR) Dk. Yellow Clarity (test code = UCLAR) Hazy Glucose (test code = UGLUC) NEGATIVE NEGATIVE N Bilirubin (test code = UBILI) NEGATIVE NEGATIVE N Ketones (test code = UKET) NEGATIVE NEGATIVE N Specific Lee (test code = 1.025 1.005-1.030 A USPGR) [...]
--- NOTE | 2021-12-25 07:30 | EDPHYS ---
Physician Documentation [facility] Name: Fawn Fleming Age: 66 yrs Sex: Female : 1955 Arrival Date: 12/25/2021 Time: 07:07 Bed 5 Private MD: ED Physician Joey Jung HPI: 12/25 08:58 This 66 yrs old Female presents to ER via EMS with complaints of Hives, Itching. kdr 08:58 Presents for the third time in less than 24 hours. She continues to present for itching kdr and rash. There is minimal rash noted on exam. Today she complains of rash and itching to her private area and that is starting to extend up towards her rectum.. Onset: The symptoms/episode began/occurred gradually, 1 week(s) ago. Severity of symptoms: At their worst the symptoms were very mild in the emergency department the symptoms are unchanged. The patient has experienced similar episodes in the past, chronically, Patient's been seen here multiple times for "rash" and itching. He has been prescribed numerous medications without significant improvement. Exam today there is very little if any rash noted in the areas where she is complaining of the discomfort and itching.. The patient has been recently seen by a physician: The patient has been recently seen at the [facility] Emergency Department, yesterday. Historical: - Allergies: 07:14 Bactrim DS; vg1 07:14 butorphanol tartrate; vg1 07:14 Fentanyl; vg1 07:14 Reglan; vg1 07:14 Stadol; vg1 07:14 sulfamethoxazole (bulk); vg1 07:14 TRIMETHOPRIM; vg1 - PMHx: 07:14 Anxiety; Atrial Fib; Bipolar disorder; Chronic pain; COPD; esophageal varices; vg1 Hepatitis; HIV; Hypertension; Migraines; Panic Attacks; - Immunization history:: Client reports receiving the 2nd dose of the Covid vaccine. - Social history:: Smoking status: Patient denies any tobacco usage or history of. ROS: 08:58 Constitutional: Negative for fever, chills, and weight loss, Eyes: Negative for injury, kdr pain, redness, and discharge, Neck: Negative for injury, pain, and swelling, Cardiovascular: Negative for chest pain, palpitations, and edema, Respiratory: Negative for shortness of breath, cough, wheezing, and pleuritic chest pain, Abdomen/GI: Negative for abdominal pain, nausea, vomiting, diarrhea, and constipation. 08:58 Skin: Positive for ecchymosis, erythema, rash, diffusely, Negative for abrasions, abscesses, cellulitis, diaphoresis. Exam: 08:58 Constitutional: This is a well developed, well nourished patient who is awake, alert, kdr and in no acute distress. Head/Face: Normocephalic, atraumatic. Eyes: Pupils equal round and reactive to light, extra-ocular motions intact. Lids and lashes normal. Conjunctiva and sclera are non-icteric and not injected. Cornea within normal limits. Periorbital areas with no swelling, redness, or edema. 08:58 Skin: Appearance: Temperature: warm, Moisture: dry, ecchymosis, that are moderate, and are scattered, and are diffusely located, diaphoresis is not appreciated, swelling, is not appreciated. Vital Signs: 07:12 BP 187 / 89; Pulse 62; Resp 17; Temp 98.2; Pulse Ox 100% on R/A; Weight 81.19 kg; vg1 Height 5 ft. 4 in. (162.56 cm); Pain 0/10; 07:30 BP 173 / 94; Pulse 59; Resp 20 S; Pulse Ox 100% ; jg9 07:12 Body Mass Index 30.72 (81.19 kg, 162.56 cm) vg1 MDM: 07:29 Patient medically screened. kdr 08:58 Data reviewed: vital signs, nurses notes. Counseling: I had a detailed discussion with kdr the patient and/or guardian regarding: the historical points, exam findings, and any diagnostic results supporting the discharge/admit diagnosis, lab results, radiology results, the need for outpatient follow up. ED course: Examined the patient with the patient's nurse. Neither of us appreciated any significant rash or erythema to account for her itching. There was no evidence of a fungal infection or tenia corporis either. Patient was otherwise stable and nontoxic in the ED attempted different anti-itch medication and discharged. Administered Medications: 07:43 Drug: hydrOXYzine 25 mg Route: PO; tp1 07:54 Follow up: Response: Medication administered at discharge. tp1 07:46 Drug: SOLU-Medrol (methylPREDNISolone sodium succinate) 60 mg Route: IM; Site: left tp1 gluteus; 07:53 Follow up: Response: Medication administered at discharge. tp1 Disposition Summary: 12/25/21 07:29 Discharge Ordered Location: Home kdr Problem: an ongoing problem kdr Symptoms: are unchanged kdr Condition: Stable kdr Diagnosis - Itching kdr Followup: kdr - With: Private Physician - When: 2 - 3 days - Reason: If symptoms return, Further diagnostic work-up, Recheck today's complaints, Continuance of care, Re-evaluation by your physician Discharge Instructions: - Discharge Summary Sheet kdr - Rash, Adult, Ihwm-ns-Cvim kdr Forms: - Medication Reconciliation Form kdr - Thank You Letter kdr Prescriptions: - Hydroxyzine HCl 25 mg Oral Tablet - take 1 tablet by ORAL route every 6 hours As needed; 24 tablet; Refills: 0, kdr Product Selection Permitted Signatures: Joey Jung MD MD kdr Renae Camarillo RN RN vg1 Dorita Maldonado RN RN tp1 Corrections: (The following items were deleted from the chart) 09:02 08:58 Skin: Appearance: Temperature: warm, Moisture: dry, ecchymosis, that are kdr moderate, and are scattered, and are diffusely located, diaphoresis is not appreciated, swelling, that are mild, kdr
--- NOTE | 2021-12-25 07:30 | ER ---
Nurse's Notes [facility] Name: Fawn Fleming Age: 66 yrs Sex: Female : 1955 Arrival Date: 12/25/2021 Time: 07:07 Bed 5 Private MD: Diagnosis: Itching Presentation: 12/25 07:12 Chief complaint: EMS states: toned out for pt c/o hives and itching x 3 days; pt was vg1 seen in ED yesterday and was given a steroid and since taking it stated itching has become worse. Pt was given 25 mg of Benadryl IM. Coronavirus screen: Vaccine status: Patient reports receiving the 2nd dose of the covid vaccine. Client denies travel out of the [place] in the last 14 days. Ebola Screen: Patient denies exposure to infectious person. Patient denies travel to an Ebola-affected area in the 21 days before illness onset. Initial Sepsis Screen: Does the patient meet any 2 criteria? No. Patient's initial sepsis screen is negative. Does the patient have a suspected source of infection? No. Patient's initial sepsis screen is negative. Risk Assessment: Do you want to hurt yourself or someone else? Patient reports no desire to harm self or others. Onset of symptoms was December 22, 2021. 07:12 Method Of Arrival: EMS: [facility] vg1 07:12 Acuity: BLAYNE 3 vg1 Triage Assessment: 07:14 General: Appears in no apparent distress. uncomfortable, Behavior is calm, cooperative. vg1 Pain: Denies pain. EENT: No signs and/or symptoms were reported regarding the EENT system. Neuro: Level of Consciousness is awake, alert, obeys commands, Oriented to person, place, time, situation. Cardiovascular: Patient's skin is warm and dry. Respiratory: Airway is patent Respiratory effort is even, unlabored. GI: No signs and/or symptoms were reported involving the gastrointestinal system. : No signs and/or symptoms were reported regarding the genitourinary system. Derm: Rash noted that is itchy, red, on face, back, right arm, left arm, right leg and left leg. Musculoskeletal: Circulation, motion, and sensation intact. Historical: - Allergies: 07:14 Bactrim DS; vg1 07:14 butorphanol tartrate; vg1 07:14 Fentanyl; vg1 07:14 Reglan; vg1 07:14 Stadol; vg1 07:14 sulfamethoxazole (bulk); vg1 07:14 TRIMETHOPRIM; vg1 - PMHx: 07:14 Anxiety; Atrial Fib; Bipolar disorder; Chronic pain; COPD; esophageal varices; vg1 Hepatitis; HIV; Hypertension; Migraines; Panic Attacks; - Immunization history:: Client reports receiving the 2nd dose of the Covid vaccine. - Social history:: Smoking status: Patient denies any tobacco usage or history of. Screenin:17 Abuse screen: Denies threats or abuse. Nutritional screening: No deficits noted. vg1 Tuberculosis screening: No symptoms or risk factors identified. Fall Risk No fall in past 12 months (0 pts). No secondary diagnosis (0 pts). No IV (0 pts). Ambulatory Aid- None/Bed Rest/Nurse Assist (0 pts). Gait- Normal/Bed Rest/Wheelchair (0 pts) Mental Status- Oriented to own ability (0 pts). Total Hauser Fall Scale indicates No Risk (0-24 pts). Assessment: 07:19 Reassessment: SEE TRIAGE. vg1 Vital Signs: 07:12 BP 187 / 89; Pulse 62; Resp 17; Temp 98.2; Pulse Ox 100% on R/A; Weight 81.19 kg; vg1 Height 5 ft. 4 in. (162.56 cm); Pain 0/10; 07:30 BP 173 / 94; Pulse 59; Resp 20 S; Pulse Ox 100% ; jg9 07:12 Body Mass Index 30.72 (81.19 kg, 162.56 cm) vg1 ED Course: 07:07 Patient arrived in ED. eb 07:12 Joey Jung MD is Attending Physician. kdr 07:14 Triage completed. vg1 07:14 Arm band placed on. vg1 07:17 Patient has correct armband on for positive identification. Bed in low position. Call vg1 light in reach. Side rails up X 1. 07:17 No provider procedures requiring assistance completed. vg1 07:20 Renae Camarillo, RN is Primary Nurse. vg1 07:55 Patient did not have IV access during this emergency room visit. tp1 Administered Medications: 07:43 Drug: hydrOXYzine 25 mg Route: PO; tp1 07:54 Follow up: Response: Medication administered at discharge. tp1 07:46 Drug: SOLU-Medrol (methylPREDNISolone sodium succinate) 60 mg Route: IM; Site: left tp1 gluteus; 07:53 Follow up: Response: Medication administered at discharge. tp1 Medication: 07:55 VIS not applicable for this client. tp1 Outcome: 07:29 Discharge ordered by . kdr 07:54 Discharged to home via wheelchair. tp1 07:54 Condition: good 07:54 Discharge instructions given to patient, Instructed on discharge instructions, follow up and referral plans. medication usage, Demonstrated understanding of instructions, follow-up care, medications, Prescriptions given X 1. 07:55 Patient left the ED. tp1 Signatures: Joey Jung MD MD kdr Botello, Elizabeth eb Garcia, Victoria RN RN vg1 Dorita Maldonado RN RN tp1 Karen Joseph RN RN jg9
[2021-12-25] MEDS ORDERED: hydrOXYzine HCL 25 MG TAB ONE (07:46)
[2021-12-25] MEDS ORDERED: METHYLPREDNISOLONE 125 MG INJ ONE (07:48)
[2021-12-25 08:04] VITALS: BP 173/94; TEMP 98.2; O2SAT 100
== END 2021-12-25 07:55 | disposition home or self-care (01) ==
LOC: ER 07:05
DX: L29.9 Pruritus, unspecified (principal); Z21 Asymptomatic human immunodeficiency virus [HIV] infection status; Z88.1 Allergy status to other antibiotic agents; Z88.2 Allergy status to sulfonamides; Z88.5 Allergy status to narcotic agent; Z88.8 Allergy status to other drugs, medicaments and biological substances
CPT/HCPCS: 96372; 99283; J2930

== ENCOUNTER 2021-12-26 10:21 | Emergency (ER) | payer OTHER ==
--- OUTSIDE RECORDS SUMMARY | 2021-12-26 10:33 | XMS REPORT | Continuity of Care Document ---
:1955 Author Organization [facility] t Address [address] [place] [address] Care Team Providers Name Role Phone Urmila Ramhan Primary Care Physician Mike Lund Attending Clinician Unavailable ELAN LIRA Attending Clinician Unavailable SANTIAGO CARDENAS Attending Clinician Unavailable Bill GUO Attending Clinician Unavailable Bill Rose Attending Clinician [facility] Attending Clinician Unavailable Santiago Sanchez Attending Clinician Beverly Layton MD Attending Clinician Eliseo Arce MD Attending Clinician Carol Ann ASSOCIATE STORE LEADER, Sarai Lieberman Attending Clinician [phone] Ashly Pelletier MA Attending Clinician Unavailable Robbi [...] Policy Number Effective Date Expiration Date S [facility] COMMUNITY [id number] 2012 STARPLUS OON 00:00:00 EXCEPT [facility] DUAL [id number] 2020 COMP HMO D SNP 00:00:00 MEDICAID OF [place] [id number] 2020 00:00:00 Problems Condition Condition Condition Status Onset Resolution Last Treating Co mments Source Name Details Category Date Date Treatment Clinician Date Gastropare Gastropare Disease Active Overview : Methodi sis sis 4-[address] 00:00: [facility] 00 note l might be different from the original. Added automatic ally from request for surgery [id number] Dysphagia Dysphagia Disease Active Overview: Methodi 4-[address] 00:00: g of this [facility]osp[facility] 00 note l might be different from the original. 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 2020-10-15 Memoria PVI PVI 3-30 17:07:00 l ABLATION ABLATION 00:00: Patel soares W/ CARTO / W/ CARTO / 00 GA / T GA / T Active 08/19/2020 [facility] Food Food Disease Active 2019-05 Methodi [...] H[facility] hoxazole 1-25 Clear 00:00: Garcia 00 [facility] trimetho DA Active SV [facility] prim 1- Clear 00:00: Garcia 00 [facility] codeine DA Active SV N/V [facility] 1-25 Clear 00:00: Garcia [facility] Metoclop Propensi Active [place] ramide [...] Stop Date Source Natural father Hypertension [facility] Natural father Kidney disease Method ist [facility] Natural mother [facility] Social History Social Habit Start Date Stop Date Quantity Comments Source History SDOH [facility] Alcohol Comment History of tobacco Smoker Method ist use Hospital History [facility] Baptism Alcohol Frequency Hospita l History SDND Baptism Alcohol Std Drinks Hospit al History SDND Baptism Alcohol Binge Hospital Exposure to 2021-12-02 2021-12-12 Not sure University SARS-CoV-2 (event) 00:00:00 23:54:00 [facility] Alcohol intake 2021-07-14 2021-07-14 Ex-drinker [facility] 00:00:00 00:00:00 (finding) Cigarettes smoked 2020-09-05 2020-09-[address] current (pack per 00:00:00 00:00:00 Hospita l day) - Reported Cigarette 2020-09-05 2020-09-05 Baptism pack-years 00:00:00 00:00:00 Hospital Tobacco use and 2020-08-06 2020-08-06 Former smokeless Uni versity of exposure 00:00:00 00:00:00 tobacco user [facility] Tobacco Comment 2015-02-14 2015-02-14 Smokes approx 1-2 Un iversity of 00:00:00 00:00:00 cigarettes per [facility] day when she Branch smokes Sex [birth year] [facility] 00:00:00 00:00:00 Smoking Status Start Date Stop Date Source Ex-smoker 2020-08-06 00:00:00 2020-08-06 00:00:00 [facility] Medications Ordered Filled Start Stop Current Ordering Indication Dosage Frequency Signature Comments Components Source Medication Medication Date Date Medication? Clinician (SIG) Name Name methocarbam No 500mg 500 mg, U nivers oL 12-13 Oral, ity of (ROBAXIN) 07:45: 06:35 [place]CE[place] 500 [place] :00 dose, On Medic al mg [facility] 12/13/21 at 0245, Routine ketorolac No 30mg 30 mg, Unive rs (TORADOL) 12-13 Intramuscu ity of injection 07:45: 06:34 [place], ONCE, [place] 30 mg 00 :00 1 dose, On Medical [facility] 12/13/21 at 0245, JOE naproxen 2021-0 Yes [id number] 500mg Take 1 U nivers (NAPROSYN) 7-24 tablet by ity of 500 mg 00:00: mouth in [place] tablet 00 the Medical morning Branch and 1 tablet in the evening. Take with meals. methocarbam 2021-0 Yes [id number] 500mg Take 1 Univers oL 500 mg [...] tablet 47 Medical Branch buPROPion 2021-0 Yes [id number] 150mg Take 1 U nivers XL 4-12 tablet by ity of (WELLBUTRIN 00:00: mouth [place] XL) 150 mg 00 daily. Medical 24 hr Branch tablet busPIRone 2021-0 Yes [id number] 30mg Take 1 Un matt 30 mg 4-12 tablet by ity of tablet 00:00: mouth 2 [place] 00 (two) Medical times Branch daily. SERTraline 2021-0 Yes [id number] 200mg Take 2 Univers 100 mg 4-12 tablets by ity of tablet 00:00: mouth [place] 00 daily. Medical Branch buPROPion 2021-0 Yes [id number] 150mg Take 1 U nivers XL 4-12 tablet by ity of (WELLBUTRIN 00:00: mouth [place] XL) 150 mg 00 daily. Medical 24 hr Branch tablet busPIRone 2021-0 Yes [id number] 30mg Take 1 Un matt 30 mg 4-12 tablet by ity of tablet 00:00: mouth 2 [place] 00 (two) Medical times Branch daily. SERTraline 2021-0 Yes [id number] 200mg Take 2 Univers 100 mg 4-12 tablets by ity of tablet 00:00: mouth [place] 00 daily. Medical Branch raltegravir 2021-0 Yes [id number] 400mg Take 1 Univers (ISENTRESS) 3-28 tablet by ity of 400 mg 00:00: mouth 2 [place] tablet 00 (two) Medical times Branch daily. raltegravir Yes [id number] 400mg Take 1 Univers (ISENTRESS) 3-28 tablet by ity of 400 mg 00:00: mouth 2 [place] tablet 00 (two) Medical times Branch daily. raltegravir Yes [id number] 400mg Take 1 Univers (ISENTRESS) 3-28 tablet by ity of 400 mg 00:00: mouth 2 [place] tablet 00 (two) Medical times Branch daily. LORazepam 1 Yes [id number] 1mg Take 1 Univers mg tablet 3-21 [...] times a tablet day. buPROPion 2021- No [id number] 150mg Take 1 Univers XL -24 04-12 tablet by ity of (WELLBUTRIN 00:00: 00:[place] XL) 150 mg 00 :00 daily. Medical 24 hr Branch tablet busPIRone 2021- No [id number] 30mg Take 1 U nivers 30 mg -24 04-12 tablet by ity of tablet 00:00: 00:00 mouth 2 [place] 00 :00 (two) Medical times Branch daily. SERTraline 2021- No [id number] 200mg Take 2 Univers 100 mg 1-24 04-12 tablets by ity of tablet 00:00: 00:00 mouth [place] 00 :00 daily. Medical Branch emtricitabi Yes [id number] Take one Univers ne-tenofovi 1-20 po daily ity of r alafen 00:00: [place] (DESCOVY) 00 Medical tablet Branch emtricitabi Yes [id number] Take one Univers ne-tenofovi 1-20 po daily ity of r alafen 00:00: (DESCOVY) Medical tablet Branch emtricitabi Yes [id number] Take one Univers ne-tenofovi 1-20 po daily ity of r alafen 00:00: (DESCOVY) Medical tablet Branch metoprolol Yes [id number] Take 1 UT tartrate 7-26 tablet Health (Lopressor) 00:00: (100 mg 100 MG 00 total) by tablet mouth 2 (two) times a day AND 0.5 tablets (50 mg total) every night. metoprolol Yes [id number] Take 1 [place] tartrate 7-26 tablet Health [...] (affected area in groin) hydrALAZINE Yes 50mg Q.[id number] Take 50 mg Methodi (APRESOLINE 7-[id number] mouth [address] ) 50 MG [...] Hospita tablet 25 daily. l nystatin-tr Yes [id number] Apply to [facility] 11-25 area(s) 3 ity of cream 00:00: (three) [place] 00 times Medical daily. Branch nystatin-tr Yes [id number] Apply to [facility] 11-25 area(s) 3 ity of cream 00:00: (three) [place] 00 times Medical daily. Branch nystatin-tr 0 Yes [id number] Apply to [facility] 11-25 area(s) 3 ity of cream 00:00: (three) [place] 00 times Medical daily. Branch budesonide- 2020-0 2021- No 1{puff} QD Inhale 1 Methodi formoteroL 6-25 06-[address] (SYMBICORT) 14:37: 00:00 morning. H ospita 160-4.5 02 :00 l mcg/actuati on inhaler hydrALAZINE 0 Yes [id number] 50mg Q.[id number] Take 1 UT (Apresoline 6-11 [id number] tablet (50 Health ) 50 MG 00:00: 3D mg total) tablet 00 by mouth 3 (three) times a day. hydrALAZINE 0 Yes [id number] 50mg Q.[id number] Take 1 UT (Apresoline 6-11 [id number] tablet (50 Health ) 50 MG 00:00: [...] tablet 00 :00 mupirocin Yes UT (Bactroban) 5 Health 2 % 00:00: ointment 00 mupirocin 2020-0 Yes [place] (Bactroban) 10-17 Health 2 % 00:00: ointment 00 nystatin 2020- No [id number] Q.25D Take 5 mL Methodi (MYCOSTATIN 10-06 [...] ia 4-10 (Same as: l 14:00: Norvasc) [place] 00 emtricitabi No Notes: [place] lisa ne [...] ia 4-10 (Same as: l 14:00: Norvasc) [place] emtricitabi No Notes: Caesar lisa ne 200 [...] ia 4-10 (Same as: l 14:00: Norvasc) [place] 00 emtricitabi No Notes: [place] lisa ne 200 MG / 4-10 (Same as: l tenofovir 14:00: Descovy) Herm ariel alafenamide 00 Non-formul 25 MG Oral nancy Tablet [Descovy] Sertraline No Notes: Memor ia 4-10 (Same as: l 14:00: Zoloft) pantoprazol No Notes: [place] lisa e 4-10 Tablet l 14:00: should not [place] 00 be chewed or crushed. (Same as: [...] e 4-10 Tablet l 14:00: should not [place] 00 be chewed or crushed. (Same as: Protonix) Amiodarone No Notes: Memor ia 4-10 (Same as: l 14:00: Cordarone) Amlodipine No Notes: Memor ia 4-10 (Same as: l 14:00: Norvasc) [place] 00 emtricitabi No Notes: [place] lisa ne 200 MG / 4-10 (Same as: l tenofovir 14:00: Descovy) Herm ariel alafenamide 00 Non-formul 25 MG Oral nancy Tablet [Descovy] Sertraline No Notes: Memor ia 4-10 (Same as: l 14:00: Zoloft) [place] pantoprazol No Notes: [place] lisa e 4-10 Tablet l 14:00: should not [place] 00 be chewed or crushed. (Same as: Protonix) Amiodarone No Notes: Memor ia 4-10 (Same as: l 14:00: Cordarone) [place] Amlodipine No Notes: Memor ia 4-10 (Same as: l 14:00: Norvasc) [place] emtricitabi No Notes: Caesar lisa ne 200 MG / 4-10 (Same as: l tenofovir 14:00: Descovy) Herm ariel alafenamide 00 Non-formul 25 MG Oral nancy Tablet [Descovy] Sertraline No Notes: Memor ia 4-10 (Same as: l 14:00: Zoloft) [place] 00 pantoprazol No Notes: [place] lisa e 4-10 Tablet l 14:00: should not [place] 00 be chewed or crushed. (Same as: Protonix) Amiodarone No Notes: Memor ia 4-10 (Same as: l 14:00: Cordarone) [place] 00 Amlodipine No Notes: Memor ia 4-10 (Same as: l 14:00: Norvasc) [place] 00 emtricitabi No Notes: Caesar lisa ne 200 MG / 4-10 (Same as: l tenofovir 14:00: [place]covy) Herm ariel alafenamide 00 Non-formul 25 MG Oral nancy Tablet [Descovy] Sertraline No Notes: Memor ia 4-10 (Same as: l 14:00: Zoloft) [place] 00 pantoprazol No Notes: [place] lisa e [...] M emoria 4-10 interfere l 02:00: w/enteral [place] 00 feeds - Take 1 hr before or 2 hr after antacids, dairy pdt, meals & minerals - On empty stomach. For patients unable to swallow tablet, dissolve in 10mL - 30mL of water or juice and stir before giving. (Same As: Carafate) Saline No Notes: Memoria Flush 0.9% 4-10 (Same as: l 02:00: BD [place] Posiflush) Eliquis No Notes: Memoria 4-10 Same as: l 02:00: Eliquis [place] 00 Hydralazine No Notes: Caesar lisa Hydrochlori 4-10 (Same as: l de 50 MG 02:00: Apresoline Her mitchell Oral Tablet 00 ) May interfere w/enteral feedings Take With Food Sucralfate No Notes: May M emoria 4-10 interfere l 02:00: w/enteral [place] 00 feeds - Take 1 hr before [...] M emoria 4-10 interfere l 02:00: w/enteral [place] 00 feeds - Take 1 hr before or 2 hr after antacids, dairy pdt, meals & minerals - On empty stomach. For patients unable to swallow tablet, dissolve in 10mL - 30mL of water or juice and stir before giving. (Same As: Carafate) Saline No Notes: Memoria Flush 0.9% 4-10 (Same as: l 02:00: BD [place] Posiflush) Eliquis No Notes: Memoria 4-10 Same [...] M emoria 4-10 interfere l 02:00: w/enteral [place] 00 feeds - Take 1 hr before or 2 hr after antacids, dairy pdt, meals & minerals - On empty stomach. For patients unable to swallow tablet, dissolve in 10mL - 30mL of water or juice and stir before giving. (Same As: Carafate) Saline No Notes: Memoria Flush 0.9% 4-10 (Same as: l 02:00: BD [place] Posiflush) Eliquis No Notes: Memoria 4-10 Same as: l 02:00: Eliquis Hydralazine No Notes: [place] lisa Hydrochlori 4-10 (Same as: l de 50 MG 02:00: Apresoline Her [place] Oral Tablet 00 ) May interfere w/enteral feedings Take With Food acetaminoph No Notes: Do M emoria en-codeine 4-10 not exceed l #3 00:12: 4gm/day of [place] 00 acetaminop hen. (Same as: Tylenol with [...] not exceed l #3 00:12: 4gm/day of [place] acetaminop hen. (Same as: Tylenol with Codeine # 3) acetaminoph No Notes: Do M emoria en-codeine 4-10 not exceed l #3 00:12: 4gm/day of [place] acetaminop hen. (Same as: Tylenol with Codeine # 3) acetaminoph No Notes: Do M emoria en-codeine 4-10 not exceed l #3 00:12: 4gm/day of [place] acetaminop hen. (Same as: Tylenol with Codeine [...] oria 4-09 tab, l 22:00: Route: PO, [place] Drug form: TAB, BID, Dosing Weight 97.273, [...] tartrate 4-09 tab, l 22:00: Route: PO, [place] Drug form: TAB, BID, Dosing Weight 97.273, [...] oria 4-09 tab, l 22:00: Route: PO, [place] 00 Drug form: TAB, BID, Dosing Weight 97.273, kg, Start date: 08/29/20 17:00:00 CDT, Duration: 30 day, Stop date: 09/28/20 9:00:00 CDT metoprolol 2021-0 No 100 mg, 1 Me moria tartrate 4- tab, l 22:00: Route: PO, [place] 00 Drug form: TAB, BID, Dosing Weight 97.273, kg, Start date: 08/29/20 17:00:00 CDT, Duration: 30 day, Stop date: 09/28/20 9:00:00 CDT Raltegravir 2020-0 No 400 mg, 1 M emoria 400 MG Oral - tab, l Tablet 22:00: Route: PO, [place] nn [[facility]] 00 Drug form: TAB, BID, Dosing Weight 97.273, kg, Start date: 08/29/20 17:00:00 CDT, Duration: 30 day, Stop date: 09/28/20 9:00:00 CDT, 0 Buspirone 1-0 No Notes: Memori a 08-29 (Same As: l 22:00: BuSpar) Lisinopril 2020-0 No 40 mg, 1 Mem oria - tab, l 22:00: Route: PO, [place] 00 Drug form: TAB, BID, Dosing Weight 97.273, kg, Start date: 08/29/20 17:00:00 CDT, Duration: 30 day, Stop date: 09/28/20 9:00:00 CDT metoprolol 2021-0 No 100 mg, 1 Me moria tartrate 4-09 tab, l 22:00: Route: PO, [place] Drug form: TAB, BID, Dosing Weight 97.273, [...] Notes: Memoria 4-09 (Same l 17:07: as:MORPhin [place] 00 e Sulfate) Morphine No Notes: Memoria 4-09 (Same l 17:07: as:MORPhin [place] 00 e Sulfate) Morphine No Notes: Memoria 4-09 (Same l 17:07: as:MORPhin [place] 00 e Sulfate) Morphine No Notes: Memoria 4-09 (Same l 17:07: as:MORPhin [place] 00 e Sulfate) Morphine 2020-0 No Notes: Memoria 4- (Same l 17:07: as:MORPhin [place] 00 e Sulfate) Morphine 2020-0 No Notes: Memoria 4- (Same l 17:07: as:MORPhin [place] 00 e Sulfate) Morphine 2020-0 No Notes: [...] 0 coated Refill(s), tablet Pharmacy: [facility], 162.56, cm, 08/29/20 5:30:00 CDT, Height, 97.273, kg, 08/29/20 5:30:00 CDT, Weight pantoprazol 2020-0 Yes 40 mg = 1 M emoria e 40 mg 4-09 tab, PO, l oral 15:27: Daily, # [place] enteric 00 30 tab, 0 coated Refill(s), tablet Pharmacy: [facility] 149, 162.56, cm, 08/29/20 5:30:00 CDT, Height, 97.273, kg, 08/29/20 5:30:00 CDT, Weight pantoprazol 2020-0 Yes 40 mg = 1 M emoria e 40 mg 4-09 tab, PO, l oral 15:27: Daily, # [place] enteric 00 30 tab, 0 coated Refill(s), tablet Pharmacy: [facility] 149, 162.56, cm, 08/29/20 5:30:00 CDT, Height, 97.273, kg, 08/29/20 5:30:00 CDT, Weight pantoprazol 2020-0 Yes 40 mg = 1 M emoria e 40 mg 4-09 tab, PO, l oral 15:27: Daily, # [place] enteric 00 30 tab, 0 coated Refill(s), tablet Pharmacy: [facility], 162.56, cm, 08/29/20 5:30:00 CDT, Height, 97.273, kg, 08/29/20 5:30:00 CDT, Weight pantoprazol 2020-0 Yes 40 mg = 1 M emoria e 40 mg 4-09 tab, PO, l oral 15:27: Daily, # [place] enteric 00 30 tab, 0 coated Refill(s), tablet Pharmacy: [facility] 149, 162.56, cm, 08/29/20 5:30:00 CDT, Height, 97.273, kg, 08/29/20 5:30:00 CDT, Weight pantoprazol 2020-0 Yes 40 mg = 1 M emoria e 40 mg 4-09 tab, PO, l oral 15:27: Daily, # [place] enteric 00 30 tab, 0 coated Refill(s), tablet Pharmacy: [facility] 149, 162.56, cm, 08/29/20 5:30:00 CDT, Height, 97.273, kg, 08/29/20 5:30:00 CDT, Weight pantoprazol 2020-0 Yes 40 mg = 1 M emoria e 40 mg 4-09 tab, PO, l oral 15:27: Daily, # [place] enteric 00 30 tab, 0 coated Refill(s), tablet Pharmacy: [facility] 149, 162.56, cm, 08/29/20 5:30:00 CDT, Height, 97.273, kg, 08/29/20 5:30:00 CDT, Weight pantoprazol 2020-0 No 40 mg = 1 M emoria e 40 mg 4-09 tab, PO, l oral 15:26: Daily, # [place] enteric 00 30 tab, 0 coated Refill(s) tablet sucralfate 2020-0 Yes 1 gm = 1 Mem oria 1 g oral 4-09 tab, PO, l tablet 15:26: Q12H, # 28 [place] nn 00 tab, 0 Refill(s), Pharmacy: [facility] 149, 162.56, cm, 08/29/20 5:30:00 CDT, Height, [...] 00 tab, 0 Refill(s), Pharmacy: [facility] 149, 162.56, cm, 08/29/20 5:30:00 CDT, Height, 97.273, kg, 08/29/20 5:30:00 CDT, Weight pantoprazol 2020-0 No 40 mg = 1 M emoria e 40 mg 4-09 tab, PO, l oral 15:26: Daily, # [place] enteric 00 30 tab, 0 coated Refill(s) tablet sucralfate 2020-0 Yes 1 gm = 1 Mem oria 1 g oral 4-09 tab, PO, l tablet 15:26: Q12H, # 28 [place] nn 00 tab, 0 Refill(s), Pharmacy: [place] [id number], 162.56, cm, 08/29/20 5:30:00 CDT, Height, 97.273, kg, 08/29/20 5:30:00 CDT, Weight pantoprazol 2020-0 No 40 mg = 1 M emoria e 40 mg 4-09 tab, PO, l oral 15:26: Daily, # [place] enteric 00 30 tab, 0 coated Refill(s) tablet sucralfate 2020-0 Yes 1 gm = 1 Mem oria 1 g oral 4-09 tab, PO, l tablet 15:26: Q12H, # 28 [place] nn 00 tab, 0 Refill(s), Pharmacy: [facility] 149, 162.56, cm, 08/29/20 5:30:00 CDT, Height, [...] 00 tab, 0 Refill(s), Pharmacy: [facility] 149, 162.56, cm, 08/29/20 5:30:00 CDT, Height, 97.273, kg, 08/29/20 5:30:00 CDT, Weight pantoprazol No 40 mg = 1 M emoria e 40 mg 4-09 tab, PO, l oral 15:26: Daily, # [place] enteric 00 30 tab, 0 coated Refill(s) tablet sucralfate Yes 1 gm = 1 Mem oria 1 g oral 4-09 tab, PO, l tablet 15:26: Q12H, # 28 [place] nn 00 tab, 0 Refill(s), Pharmacy: [facility] 149, 162.56, cm, 08/29/20 5:30:00 CDT, Height, 97.273, kg, 08/29/20 5:30:00 CDT, Weight pantoprazol No 40 mg = 1 M emoria e 40 mg 4-09 tab, PO, l oral 15:26: Daily, # [place] enteric 00 30 tab, 0 coated Refill(s) tablet sucralfate Yes 1 gm = 1 Mem oria 1 g oral 4-09 tab, PO, l tablet 15:26: Q12H, # 28 [place] nn 00 tab, 0 Refill(s), Pharmacy: [facility] 149, 162.56, cm, 08/29/20 5:30:00 CDT, Height, 97.273, kg, 08/29/20 5:30:00 CDT, Weight Saline No Notes: Memoria Flush 0.9% 08-29 (Same as: l 15:25: BD [place] Posiflush) Lorazepam No Notes: Memori a - (Same as: l 15:25: Ativan) [place] Saline No Notes: Memoria Flush 0.9% 4-09 (Same as: l 15:25: BD [place] 00 Posiflush) Lorazepam No Notes: Memori a 4-09 (Same as: l 15:25: Ativan) Saline No Notes: Memoria Flush 0.9% 4-09 (Same as: l 15:25: BD [place] 00 Posiflush) Saline No Notes: Memoria Flush 0.9% 4-09 (Same as: l 15:25: BD [place] 00 Posiflush) Lorazepam No Notes: Memori a 4-09 (Same as: l 15:25: Ativan) Lorazepam No Notes: Memori a 4-09 (Same as: l 15:25: Ativan) Saline No Notes: Memoria Flush 0.9% 4-09 (Same as: l 15:25: BD [place] 00 Posiflush) Lorazepam No Notes: Memori a 4-09 (Same as: l 15:25: Ativan) Saline No Notes: Memoria Flush 0.9% 4-09 (Same as: l 15:25: BD [place] 00 Posiflush) Lorazepam No Notes: Memori a [...] Drug form: l mg + 15:00: INJ, [place] Dosing Weight 97.3, kg, Start date: 08/29/20 10:00:00 CDT, Stop date: 08/29/20 11:00:00 CDT Isuprel HCl 2020-0 No Route: IV, Memoria (ANES) 0.2 08-29 Drug form: l mg + 15:00: INJ, [place] Dosing Weight 97.3, kg, Start date: 08/29/20 [...] 08-29 Drug form: l 14:49: INJ, ONCE, [place] 00 Stop date: 08/29/20 9:49:00 CDT heparin 202-0 No Route: IV, Caesar lisa (ANES) 08-29 Drug form: l 14:49: INJ, ONCE, Stop date: 08/29/20 9:49:00 CDT heparin 202-0 No Route: IV, Caesar lisa (ANES) 08-29 Drug form: l 14:49: INJ, ONCE, [place] 00 Stop date: 08/29/20 9:49:00 CDT heparin 202-0 No Route: IV, Caesar lisa (ANES) 08-29 Drug form: l 14:49: INJ, ONCE, [place] 00 Stop date: 08/29/20 9:49:00 CDT heparin [...] 08-29 Drug form: l 14:29: INJ, ONCE, [place] 00 Stop date: 08/29/20 9:29:00 CDT propofol 2021-0 No Route: IV, Mem oria (ANES) 08-29 Drug form: l 14:29: INJ, ONCE, Stop date: 08/29/20 9:29:00 CDT propofol 2021-0 No Route: IV, Mem oria (ANES) 08-29 Drug form: l 14:29: INJ, ONCE, Stop date: 08/29/20 9:29:00 CDT propofol 2021-0 No Route: IV, Mem oria (ANES) 08-29 Drug form: l 14:29: INJ, ONCE, [place] 00 Stop date: 08/29/20 9:29:00 CDT propofol [...] 08-29 Drug form: l 14:18: INJ, ONCE, [place] 00 Stop date: 08/29/20 9:18:00 CDT heparin 202-0 No Route: IV, Caesar lisa (ANES) 08-29 Drug form: l 14:18: INJ, ONCE, [place] 00 Stop date: 08/29/20 9:18:00 CDT heparin [...] 08-29 Drug form: l 14:18: INJ, ONCE, [place] 00 Stop date: 08/29/20 9:18:00 CDT Flumazenil [...] Memori a 08-29 Route: l 14:01: IVP, [place] 00 Q5Min, Dosing Weight 97.273, kg, PRN [...] oria ne 08-29 Route: l 14:01: IVP, [place] 00 Q5Min, Dosing Weight 97.273, kg, PRN [...] Memori a 08-29 Route: l 14:01: IVP, [place] 00 Q2MIN, Dosing Weight 97.273, kg, PRN Narcotic Reversal, Start date: 08/29/20 9:01:00 CDT, Duration: 8 doses or times, Stop date: Limited # of times Ondansetron 2020-0 No 4 mg, Memor ia 08-29 Route: l 14:01: IVP, ONCE, [place] 00 Dosing Weight 97.273, kg, PRN Nausea & Vomiting, Start date: 08/29/20 9:01:00 CDT Labetalol 2020-0 No 10 mg, Memori a 08-29 Route: l 14:01: IVP, [place] 00 Q5Min, Dosing Weight 97.273, kg, PRN Elevated BP, Start date: 08/29/20 9:01:00 CDT, Duration: 5 doses or times, Stop date: Limited # of times Acetaminoph 2020-0 No 1,000 mg, M emoria en 08-29 Route: PO, l 14:01: Drug form: [place] 00 TAB, ONCE, Dosing Weight 97.273, kg, [...] Memori a 08-29 Route: l 14:01: IVP, [place] 00 Q2MIN, Dosing Weight 97.273, kg, PRN Narcotic Reversal, Start date: 08/29/20 9:01:00 CDT, Duration: 8 doses or times, Stop date: Limited # of times Ondansetron 2020-0 No 4 mg, Memor ia 08-29 Route: l 14:01: IVP, ONCE, [place] 00 Dosing Weight 97.273, kg, PRN Nausea [...] oria ne 08-29 Route: l 14:01: IVP, [place] 00 Q5Min, Dosing Weight 97.273, kg, PRN [...] Memori a 08-29 Route: l 14:01: IVP, [place] 00 Q2MIN, Dosing Weight 97.273, kg, PRN Narcotic Reversal, Start date: 08/29/20 9:01:00 CDT, Duration: 8 doses or times, Stop date: Limited # of times Ondansetron 2020-0 No 4 mg, Memor ia 08-29 Route: l 14:01: IVP, ONCE, [place] 00 Dosing Weight 97.273, kg, PRN Nausea & Vomiting, Start date: 08/29/20 9:01:00 CDT Labetalol 1-0 No 10 mg, Memori a 08-29 Route: l 14:01: IVP, [place] 00 Q5Min, Dosing Weight 97.273, kg, PRN [...] oria ne 08-29 Route: l 14:01: IVP, [place] 00 Q5Min, Dosing Weight 97.273, kg, PRN [...] Memori a 08-29 Route: l 14:01: IVP, [place] 00 Q2MIN, Dosing Weight 97.273, kg, PRN [...] ia 08-29 Route: l 14:01: IVP, ONCE, [place] 00 Dosing Weight 97.273, kg, PRN Nausea & Vomiting, Start date: 08/29/20 9:01:00 CDT Naloxone 2021-0 No 0.4 mg, Memori a 08-29 Route: l 14:01: IVP, [place] 00 Q2MIN, Dosing Weight 97.273, kg, PRN Narcotic Reversal, Start date: 08/29/20 9:01:00 CDT, Duration: 8 doses or times, Stop date: Limited # of times Ondansetron 2021-0 No 4 mg, Memor ia 08-29 Route: l 14:01: IVP, ONCE, [place] 00 Dosing Weight 97.273, kg, PRN Nausea & Vomiting, Start date: 08/29/20 9:01:00 CDT Labetalol 2020-0 No 10 mg, Memori a 08-29 Route: l 14:01: IVP, [place] 00 Q5Min, Dosing Weight 97.273, kg, PRN Elevated BP, Start date: 08/29/20 9:01:00 CDT, Duration: 5 doses or times, Stop date: Limited # of times Acetaminoph 2020-0 No 1,000 mg, M emoria en 08-29 Route: PO, l 14:01: Drug form: [place] 00 TAB, ONCE, Dosing Weight 97.273, kg, [...] oria ne 08-29 Route: l 14:01: IVP, [place] 00 Q5Min, Dosing Weight 97.273, kg, PRN [...] Memori a 08-29 Route: l 14:01: IVP, [place] 00 Q2MIN, Dosing Weight 97.273, kg, PRN [...] Memori a 08-29 Route: l 14:01: IVP, [place] 00 Q5Min, Dosing Weight 97.273, kg, PRN Elevated BP, Start date: 08/29/20 9:01:00 CDT, Duration: 5 doses or times, Stop date: Limited # of times Acetaminoph 0 No 1,000 mg, M emoria en 08-29 Route: PO, l 14:01: Drug form: [place] 00 TAB, ONCE, Dosing Weight 97.273, kg, [...] oria ne 08-29 Route: l 14:01: IVP, [place] 00 Q5Min, Dosing Weight 97.273, kg, PRN Pain Score 7-10, Start date: 08/29/20 9:01:00 CDT, Duration: 4 doses or times, Stop date: Limited # of times lidocaine No Route: IV, Me moria (ANES) 08-29 Drug form: l 13:52: INJ, ONCE, [place] 00 Stop date: 08/29/20 8:52:00 CDT rocuronium [...] 08-29 Drug form: l 13:42: INJ, ONCE, [place] Stop date: 08/29/20 8:42:00 CDT fentaNYL 2020-0 [...] Drug form: l 10 13:15: INJ, Start [place] microgram date: 08/29/20 8:15:00 CDT, Stop date: 08/29/20 9:15:00 CDT norepinephr 2020-0 No Route: IV, Memoria ine (ANES) 08-29 Drug form: l 10 13:15: INJ, Start [place] microgram date: 08/29/20 8:15:00 CDT, Stop date: 08/29/20 9:15:00 CDT norepinephr 2020-0 No Route: IV, Memoria ine (ANES) 08-29 Drug form: l 10 13:15: INJ, Start [place] microgram date: 08/29/20 8:15:00 CDT, Stop date: [...] Drug form: l 10 13:15: INJ, Start [place] microgram 00 date: 08/29/20 8:15:00 CDT, Stop [...] 4-09 Total l 0.9% IV 12:30: Volume: [place] (ANES) 1000 00 1,000, mL Start date: [...] 4-09 Total l 0.9% IV 12:30: Volume: [place] (ANES) 1000 00 1,000, mL Start date: [...] PO, l Hydrochlori 11:42: Q24H, # 30 [place] de 150 MG 00 tab, 0 Extended Refill(s) Release Tablet 24 HR Yes 150 mg = 1 Memori a Bupropion -09 tab, PO, l Hydrochlori 11:42: Q24H, # 30 Marty de 150 MG 00 tab, 0 Extended Refill(s) Release Tablet 24 HR Yes 150 mg = 1 Memori a Bupropion -09 tab, PO, l Hydrochlori 11:42: Q24H, # 30 [place] de 150 MG 00 tab, 0 Extended Refill(s) Release Tablet 24 HR Yes 150 mg = 1 Memori a Bupropion - tab, PO, l Hydrochlori 11:42: Q24H, # 30 [place] de 150 MG 00 tab, 0 Extended Refill(s) Release Tablet 24 HR Yes 150 mg = 1 Memori a Bupropion -09 tab, PO, l Hydrochlori 11:42: Q24H, # 30 [place] de 150 MG 00 tab, 0 Extended Refill(s) Release Tablet 24 HR Yes 150 mg = 1 Memori a Bupropion -09 tab, PO, l Hydrochlori 11:42: Q24H, # 30 [place] de 150 MG 00 tab, 0 Extended Refill(s) Release Tablet 24 HR Yes 150 mg = 1 Memori a Bupropion 4-09 tab, PO, l Hydrochlori 11:42: Q24H, # 30 [place] de 150 MG 00 tab, 0 Extended [...] 08-29 Q12H, tab, l Tablet 11:41: 0 [place] [Eliquis] 00 Refill(s), For Atrial Fibrilatio n apixaban 5 2020-0 Yes 5 mg, PO, Me moria MG Oral 08-29 Q12H, tab, l Tablet 11:41: 0 Marty [Eliquis] 00 Refill(s), For Atrial Fibrilatio n apixaban 5 2020-0 Yes 5 mg, PO, Me moria MG Oral 08-29 Q12H, tab, l Tablet 11:41: 0 [place] [Eliquis] 00 Refill(s), For Atrial Fibrilatio n apixaban 5 2020-0 Yes 5 mg, PO, Me moria MG Oral - Q12H, tab, l Tablet 11:41: 0 [place] [Eliquis] 00 Refill(s), For Atrial Fibrilatio n AMIODarone 2020-0 Yes 200 mg = 1 M emoria 200 mg oral -09 tab, PO, l tablet 11:38: Daily, # [place] 00 90 tab, 3 Refill(s) AMIODarone 2020-0 Yes 200 mg = 1 M emoria 200 mg oral 4-09 tab, PO, l tablet 11:38: Daily, # Marty 00 90 tab, 3 Refill(s) AMIODarone 2020-0 Yes 200 mg = 1 M emoria 200 mg oral 4-09 tab, PO, l tablet 11:38: Daily, # [place] 00 90 tab, 3 Refill(s) AMIODarone 2020-0 Yes 200 mg = 1 M emoria 200 mg oral 4-09 tab, PO, l tablet 11:38: Daily, # [place] 00 90 tab, 3 Refill(s) AMIODarone 0 [...] Ordered Filled Immunization Date Status Comments [facility] Immunization Name Name PFIZER COVID-19 2020-07-23 Completed [facility] MRNA VACCINATION 00:00:00 [facility] PFIZER COVID-19 2020-07-02 Completed [facility] MRNA VACCINATION 00:00:00 [facility] Influenza Virus 2017-03-08 Completed Universit y of Vaccine 00:00:00 [facility] Influenza Virus 2017-03-08 Completed Universit y of Vaccine 00:00:00 [facility] Influenza Virus 2017-03-08 Completed Universit y of Vaccine 00:00:00 [facility] Influenza Virus 2014-01-30 Completed Universit y of Vaccine (3+ yrs) 00:00:00 [facility] dical Branch Pneumococcal 13 2014-01-30 Completed Universit y of Conjugate, PCV13 00:00:00 [facility] dical (Prevnar 13) Branch Influenza Virus 2014-01-30 Completed Universit y of Vaccine (3+ yrs) 00:00:00 [facility] dical Branch Pneumococcal 13 2014-01-30 Completed Universit y of Conjugate, PCV13 00:00:00 [facility] dical (Prevnar 13) Branch Influenza Virus 2014-01-30 Completed Universit y of Vaccine (3+ yrs) 00:00:00 [facility] dical Branch Pneumococcal 13 2014-01-30 Completed Universit y of Conjugate, PCV13 00:00:00 [facility] dical (Prevnar 13) Branch Pneumococcal 2012-02-16 Completed University o f Polysaccharide, 00:00:[address] [facility] ical PPSV23 (PNEUMOVAX) Branch Influenza Virus 2012-02-16 Completed Universit y of Vaccine 00:00:00 [facility] PPD (TB) 2012-02-16 Completed University of 00:00:00 [facility] Pneumococcal 2012-02-16 Completed University o f Polysaccharide, 00:00:[address] [facility] ical PPSV23 (PNEUMOVAX) Branch Influenza Virus 2012-02-16 Completed Universit y of Vaccine 00:00:00 [facility] PPD (TB) 2012-02-16 Completed University of 00:00:00 [facility] Pneumococcal 2012-02-16 Completed University o f Polysaccharide, 00:00:[address] [facility] ical PPSV23 (PNEUMOVAX) Branch Influenza Virus 2012-02-16 Completed Universit y of Vaccine 00:00:00 [facility] PPD (TB) 2012-02-16 Completed University of 00:00:00 [facility] Hep B, Adol or Pedi 2011-09-01 Completed Unive rsity of Dosage 00:00:00 [facility] Hep B, Adol or Pedi 2011-09-01 Completed Unive rsity of Dosage 00:00:00 [facility] Hep B, Adol or Pedi 2011-09-01 Completed Unive rsity of Dosage 00:00:00 [facility] Hep B, Adol or Pedi 2011-03-17 Completed Unive rsity of Dosage 00:00:00 [facility] Hep B, Adol or Pedi 2011-03-17 Completed Unive rsity of Dosage 00:00:00 [facility] Hep B, Adol or Pedi 2011-03-17 Completed Unive rsity of Dosage 00:00:00 [facility] Influenza Virus 2011-02-10 Completed Universit y of Vaccine 00:00:00 [facility] Hep B, Adol or Pedi 2011-02-10 Completed Unive rsity of Dosage 00:00:00 [facility] Influenza Virus 2011-02-10 Completed Universit y of Vaccine 00:00:00 [facility] Hep B, Adol or Pedi 2011-02-10 Completed Unive rsity of Dosage 00:00:00 [facility] Influenza Virus 2011-02-10 Completed Universit y of Vaccine 00:00:00 [facility] Hep B, Adol or Pedi 2011-02-10 Completed Unive rsity of Dosage 00:00:00 [facility] PPD (TB) 2010-11-18 Completed University of 00:00:00 [facility] TDAP (ADACEL) 2010-11-18 Completed University of VACCINE 00:00:00 [facility] PPD (TB) 2010-11-18 Completed University of 00:00:00 [facility] TDAP (ADACEL) 2010-11-18 Completed University of VACCINE 00:00:00 [facility] PPD (TB) 2010-11-18 Completed University of 00:00:00 [facility] TDAP (ADACEL) 2010-11-18 Completed University of VACCINE 00:00:00 [facility] HEPATITIS A 2004-03-02 Completed University of 00:00:00 [facility] HEPATITIS A 2004-03-02 Completed University of 00:00:00 [facility] HEPATITIS A 2004-03-02 Completed University of 00:00:00 [facility] HEPATITIS A 2003-08-01 Completed University of 00:00:00 [facility] HEPATITIS A 2003-08-01 Completed University of 00:00:00 [facility] HEPATITIS A 2003-08-01 Completed University of 00:00:00 [facility] Pneumococcal 2001-10-04 Completed University o f Polysaccharide, 00:00:[address] [facility] ical PPSV23 (PNEUMOVAX) [place] PPD (TB) 2001-10-04 Completed University of 00:00:00 [facility] Pneumococcal 2001-10-04 Completed University o f Polysaccharide, 00:00:00 [facility] ical PPSV23 (PNEUMOVAX) Branch PPD (TB) 2001-10-04 Completed University of 00:00:00 [facility] Pneumococcal 2001-10-04 Completed University o f Polysaccharide, 00:00:00 [facility] PPSV23 (PNEUMOVAX) Branch PPD (TB) 2001-10-04 Completed University 00:00:00 [facility] Vital Signs Vital Name Observation Time Observation Value Comments Source Systolic blood 2021-12-13 06:39:53 170 mm[Hg] Univer sity of pressure [facility] Diastolic blood 2021-12-13 06:39:53 96 mm[Hg] Unive rsity of pressure [facility] Heart rate 2021-12-13 06:39:53 60 /min Universi ty of [facility] Respiratory rate 2021-12-13 06:39:53 18 /min [facility] in 2021-12-13 06:39:53 98 /min [facility] Arterial blood by [facility] Pulse oximetry Branch Body temperature 2021-12-13 04:57:00 36.56 Amina Univ ersity of [facility] Body height 2021-12-13 04:57:00 162.6 cm Universi ty of [facility] Body weight 2021-12-13 04:57:00 90.719 kg Universi ty [facility] BMI 2021-12-13 04:57:00 34.33 kg/m2 Universi ty [facility] Systolic blood 2021-08-21 13:13:00 191 mm[Hg] Univer sity of pressure [facility] Diastolic blood 2021-08-21 13:13:00 99 mm[Hg] Unive rsity of pressure [facility] Heart rate 2021-08-21 13:13:00 52 /min Universi ty of [facility] Body temperature 2021-08-21 13:11:00 36.5 Amina Univ ersity of [facility] Respiratory rate 2021-08-21 13:11:00 16 /min Univ ersity of [facility] Body height 2021-08-21 13:11:00 162.6 cm Universi ty of [facility] Body weight 2021-08-21 13:11:00 93.759 kg Universi ty of [facility] BMI 2021-08-21 13:11:00 35[facility]48 [facility] Oxygen saturation in 2021-08-21 13:11:00 95 /min [facility] Arterial blood by [facility] Pulse oximetry Branch Systolic blood 2021-07-14 15:18:00 142 mm[facility]Hg[facility] Diastolic blood 2021-07-14 15:18:00 76 mm[Hg] [facility] Heart rate 2021-07-14 15:18:00 61 [facility] height 2021-07-14 15:18:00 162.6 cm [facility] Body weight 2021-07-14 15:18:00 94.802 kg [facility] BMI 2021-07-14 15:18:00 35.87 kg/m2 [facility] Systolic blood 2020-12-08 15:48:00 125 mm[Hg] Method [facility] pressure Diastolic blood 2020-12-08 15:48:00 76 mm[Hg] [facility] pressure Heart rate 2020-12-08 15:48:00 64 /min [facility] Body temperature 2020-12-08 15:48:[address] [facility] Respiratory rate 2020-12-08 15:48:00 17 /min [facility] Body height 2020-12-08 15:48:00 162.6 cm [facility] Body weight 2020-12-08 15:48:00 98.884 kg [facility] BMI 2020-12-08 15:48:00 37.42 kg/m2 [facility] Oxygen saturation in 2020-12-08 15:48:00 97 /min [facility] Arterial blood by Pulse oximetry Respitory Rate 2020-08-30 13:00:00 Memori al Marty Systolic (mm Hg) 2020-08-30 13:00:00 Caesar rial Marty Diastolic (mm Hg) 2020-08-30 13:00:00 Mem orial [place] Systolic (mm Hg) 2020-08-30 11:00:00 Caesar rial [place] Diastolic (mm Hg) 2020-08-30 11:00:00 Mem orial [place] Temperature Oral (F) 2020-08-30 11:00:00 98.4 F [facility] [place] Respitory Rate 2020-08-30 11:00:00 [place] andre Marty Respitory Rate 2020-08-30 10:00:00 [place] andre Marty Systolic (mm Hg) 2020-08-30 10:00:00 Caesar cheung [place] Diastolic (mm Hg) 2020-08-30 10:00:00 Mem orial Marty Temperature Oral (F) 2020-08-30 00:00:00 96.9 F [facility] Temperature Oral (F) 2020-08-29 11:26:00 97.6 F [facility] Height 2020-08-29 10:30:00 162.56 cm [facility] Weight 2020-08-29 10:30:00 [facility] BMI Calculated 2020-08-29 10:30:00 [place] andre Marty Procedures Procedure Date / Time Performing Clinician Source Performed CT CERVICAL SPINE WO 2021-12-13 05:48:16 Bill Guo Kiersten [facility] CONTRAST [facility] CT HEAD WO CONTRAST 2021-12-13 05:48:16 Bill Guo [facility] CT LUMBAR SPINE WO 2021-12-13 05:48:16 Bill Guo [facility] CONTRAST [facility] CT THORACIC SPINE WO 2021-12-13 05:48:16 Bill Guo Kiersten [facility] CONTRAST [facility] ECG 12-LEAD 2021-07-14 15:14:00 Elan Lira [facility] [id number] 2021-06-17 00:00:00 GR[facility]A [facility] GASTROINTESTINAL PANEL 2020-12-08 22:21:00 Eliseo Arce [facility] XR ABDOMEN 1 VW 2020-12-08 18:06:32 Eliseo Arce Ho spital OR [place] < 1 HOUR 2020-09-05 22:39:00 Eliseo Arce spital SURGICAL PATHOLOGY REQUEST 2020-09-05 21:54:00 Eliseo Arce [facility] XR CHEST 1 VW PORTABLE 2020-09-05 19:55:00 Eliseo Arce [facility] DISCHARGE PATIENT 2020-09-05 17:27:55 Lucas [facility] [place] AN ELECTIVE 2020-09-05 16:47:23 Kirit Flood V. [facility] ENDOTRACHEAL AIRWAY EGD, INTRAOPERATIVE 2020-09-05 16:27:00 Eliseo Arce [facility] PARTIAL THROMBOPLASTIN 2020-09-05 15:04:00 Sarai Maharaj [facility] TIME (PTT) M. PROTHROMBIN TIME WITH INR 2020-09-05 15:04:00 Mindy Maharaj [facility] M. Plan of Care Planned Activity Planned Date Details Comments Source Future Scheduled 2021-08-26 Screening for [facility] Test 13:02:23 malignant neoplasm of cervix (procedure) [code = 259755459] Future Scheduled 2021-08-26 BREAST CANCER [facility] Test 13:02:23 SCREENING [code = BREAST CANCER SCREENING] Future Scheduled 2021-08-26 COLONOSCOPY SCREENING [facility] Test 13:02:23 [code = COLONOSCOPY SCREENING] Future Scheduled 2021-08-26 Screening for [facility] Test 13:02:23 malignant neoplasm of lung (procedure) [code = 626356254] Future Scheduled 2021-08-26 SHINGLES VACCINES (#1) [facility] Test 13:02:23 [code = SHINGLES VACCINES (#1)] Future Scheduled 2021-08-26 COVID-19 VACCINE (3 - [facility] Test 13:02:23 Pfizer risk 4-dose series) [code = COVID-19 VACCINE (3 - Pfizer risk 4-dose series)] Future Scheduled 2021-08-26 65+ PNEUMOCOCCAL [facility] Test 13:02:23 VACCINE (4 of 4 - PPSV23) [code = 65+ PNEUMOCOCCAL VACCINE (4 of 4 - PPSV23)] Future Scheduled 2021-08-26 INFLUENZA VACCINE [facility] Test 13:02:23 [code = INFLUENZA VACCINE] Encounters Start End Encounter Admission Attending Care Care Encounter Source Date/Time Date/Time Type Type Clinicians Facility Department ID 2021-11-16 Outpatient [facility] [id number] [place] 10:32:47 [id number] Health 2021-08-03 Inpatient WINTER Lund [id number] [facility] 11:30:00 Mike [id number] [facility] 2021-07-14 Outpatient JENNY [facility] [id number] [place] 09:33:51 [facility] 2021-06-16 Inpatient WINTER Leal [id number] [facility] 08:30:00 Mike [id number] [facility] 2021-06-15 Inpatient WINTER Leal [id number] [facility] 10:30:00 Mike [id number] [facility] 2022-02-26 2022-02-26 Outpatient Marika [facility] [id number] Univers 08:30:00 08:30:00 SANTIAGO [id number] [facility] 2022-02-26 2022-02-26 Outpatient Marika [facility] [id number] Univers 08:30:00 08:30:00 SANTIAGO [facility] 2021-12-12 2021-12-13 Emergency X Bill GUO [facility] ERT [id number] Univers 23:53:00 01:52:00 [facility]ly [facility] 2021-12-12 2021-12-13 Emergency Bill Guo [facility] [id number] Univers 23:53:00 01:52:00 Kiersten BULLOCK [id number] i ty [facility] 4.2.7.2.686 [facility] [id number] [facility] 084 Branch 2021-11-20 2021-11-20 Education 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 Development Manager [facility] UNIVERSIT 1.2.840.114 [id number] Univers 09:45:00 10:00:00 Visit Santiago Cardenas [facility] [id number] ity of [facility] 4.2.7.2.686 [facility] [id number] [facility] 316 Branch 2021-11-20 2021-11-20 Outpatient Marika CARDENAS [facility] [id number] Univers 09:45:00 09:45:00 SANTIAGO [facility] 2021-11-20 2021-11-20 Outpatient [facility] [id number] Univers 09:45:00 09:45:00 [id number] [facility] 2021-08-21 2021-08-21 Office [facility] [id number] [facility] 08:30:00 09:00:00 Visit Santiago [facility] [id number] i [facility] 4.2.7.2.686 Richi bach [id number] [facility] 089 Branch 2021-08-05 2021-08-05 Outpatient RAUL Lund, EDUARDOCL [facility] [id number] [facility] 05:24:00 05:24:00 Mike 31 [facility] 2021-08-05 2021-08-05 Outpatient RAUL Lund, EDUARDOCL [facility] [id number] [facility] 05:24:00 05:24:00 Mike [id number] [facility] 2021-07-14 2021-07-14 Office KIMBERLEY Lira 6400 1.2.840.114 [id number] [place] 08:45:00 09:34:[address] [id number] Health 9.2.7.2.686 [id number] 1 2021-07-09 2021-07-09 Telephone KIMBERLEY Layton 6400 1.2.840.114 [id number] [place] 00:00:00 00:00:[address] [id number] Health 9.2.7.2.686 [id number] 1 2021-06-17 2021-06-17 Inpatient RAUL Lund, HCACL INTE.02 [id number] [facility] 10:56:00 14:36:00 Mike [id number] [facility] 2021-06-17 2021-06-17 Inpatient RAUL Lund, HCACL INTE.02 [id number] [facility] 10:56:00 14:36:00 Mike 47 [facility] 2021-04-28 2021-04-28 Telephone Jailyn 1Chelsie2.840.8 [id number] Methodi 00:00:00 00:00:[address] 3.430.2.7 Hospit a .3.551000 l .8 2021-03-31 2021-03-31 Qi Coyle2.840.1 [id number] Methodi 00:00:00 00:00:00 Only Sarai Lieberman 45921.1.1 979 s t 3.430.2.7 Hospit a .3.899234 l .8 2021-03-24 2021-03-24 [facility] 1.2.840.2 [id number] Methodi 00:00:00 00:00:[address] 3.430.2.7 Hospit a .3.801554 l .8 2021-01-19 2021-01-19 Telephone Beason, 1.2.840.1 [id number] [id number] Methodi 00:00:00 00:00:[address] 3.430.2.7 Hospit a .3.975708 l .8 2020-12-12 2020-12-12 Office Hematpour, [facility] 6400 1.2.840.114 [id number] 07:42:02 08:18:[address] 350.1.13.58 9.2.7.2.686 [id number] 1 2020-12-09 2020-12-09 Telephone [facility], 1.2.840.1 [id number] Methodi 00:00:00 00:00:00 Sarai Lieberman 00077.1.1 316 s t 3.430.2.7 Hospit a .3.128132 l .8 2020-12-08 2020-12-08 [facility], 1.2.840.1 [id number] [id number] Methodi 12:35:54 23:59:00 Encounter Ray 92217.1.[address] 3.430.2.7 Hospit a .3.548429 l .8 2020-12-08 2020-12-08 [facility], 1.2.840.1 [id number] Methodi 17:25:00 17:30:[address] 3.430.2.7 Hospit a .3.877822 l .8 2020-12-08 2020-12-08 Office Jailyn, 1.2.840.1 [id number] Methodi 10:30:00 11:39:56 Visit Ray 30129.1.[address] 3.430.2.7 Hospit a .3.139687 l .8 2020-12-08 2020-12-08 Travel 1.2.840.1 1.2.636.401 [id number] Methodi 00:00:00 00:00:[address] 3.430.2.7 0.2.7.3.698 Ho spita .3.362451 084.8 l .8 2020-12-02 2020-12-02 Education And Development Manager [facility] 1.2.840.114 [id number] 10:20:06 10:36:19 Visit HEALTH 350.1.13.10 CLINICS 4.2.7.2.686 [id number] 2020-11-25 2020-11-25 Office Devin [facility] 1.2.840.114 [id number] 11:06:30 11:58:14 Visit Robbi R [employer] 350.1.13.10 [facility] 4.2.7.2.686 MATERNAL [id number] & CHILD 107 [facility] 2020-11-25 2020-11-25 Pending sale to [facility] 1.2.211.562 [id number] 00:00:00 00:00:00 [facility] HEALTH 350.1.13.10 CLINICS 4.2.7.2.686 [id number] 2020-11-25 2020-11-25 [facility] 1.2.094.598 [id number] 00:00:00 00:00:00 Rosluisa R [employer] 350.1.13.10 REGIONAL 4.2.7.2.686 MATERNAL [id number] & CHILD 107 [facility] 2020-11-14 2020-11-14 Abstract Clark, 1.2.840.1 [id number] Methodi 00:00:00 00:00:[address] 3.430.2.7 Hospit a .3.060565 l .8 2020-11-14 2020-11-14 Telephone Clark, 1.2.840.1 [id number] 2099 [id number] Methodi 00:00:00 00:00:[address] 3.430.2.7 Hospit a .3.527236 l .8 2020-11-07 2020-11-07 Telephone Diana, [facility] 6400 1.2.840.114 [id number] 00:00:00 00:00:[address] 350.1.13.58 9.2.7.2.686 [id number] 1 2020-10-27 2020-10-27 Telephone Cade, 1.2.840.4 [id number] Methodi 00:00:00 00:00:[address] 3.430.2.7 Hospit a .3.544517 l .8 2020-10-24 2020-10-24 Telephone Clark, 1.2.840.1 [id number] 2099 [id number] Methodi 00:00:00 00:00:[address] 3.430.2.7 Hospit a .3.913050 l .8 2020-10-06 2020-10-12 Telemedici [facility], 1.2.840.1 [id number] Methodi 15:30:00 00:08:46 ne Ray 65171.1.[address] 3.430.2.7 Hospit a .3.926070 l .8 2020-09-30 2020-09-30 Telephone Jeredimasaleshia, 1.2.840.2 [id number] Methodi 00:00:00 00:00:[address] 3.430.2.7 Hospit a .3.854326 l .8 2020-09-21 2020-09-21 Travel 1.2.840.1 1.2.335.800 [id number] Methodi 00:00:00 00:00:[address] 3.430.2.7 0.2.7.3.698 Ho spita .3.859925 084.8 l .8 2020-09-06 2020-09-06 [facility] 1.2.840.1 [id number] Methodi 17:42:30 23:59:[address] 3.430.2.7 Hospit a .3.366180 l .8 2020-09-06 2020-09-06 [facility], 1.2.840.1 [id number] [id number] Methodi 16:50:00 17:41:00 Encounter Ray [address]63.1.[address] 3.430.2.7 Hospit a .3.044615 l .8 2020-09-05 2020-09-05 [facility], 1.2.840.1 [id number] Methodi 09:17:00 19:45:00 Encounter Ray [address]33.1.[address] 3.430.2.7 Hospit a .3.481093 l .8 2020-09-05 2020-09-05 Surgery [facility], 1.2.840.1 [id number] Methodi 11:30:00 13:15:[address] 3.430.2.7 Hospit a .3.755064 l .8 2020-09-05 2020-09-05 Anesthesia [facility], 1.2.840.1 [id number] Methodi 11:27:00 12:20:00 Event Anupamdarrellthi 66780.1.1 243 s t V. 3.430.2.7 Hospit a .3.202782 l .8 2020-09-05 2020-09-05 Travel 1.2.840.1 1.2.325.255 [id number] Methodi 00:00:00 00:00:[address] 3.430.2.7 0.2.7.3.698 anayta .3.694741 084.8 l .8 2020-09-04 2020-09-04 Telephone [place], 1.2.840.1 [id number] Methodi 00:00:00 00:00:00 Sarai Lieberman 35145.1.1 762 s t 3.430.2.7 Hospit a .3.635834 l .8 2020-09-02 2020-09-02 Telephone [place], 1.2.840.0 [id number] Methodi 00:00:00 00:00:00 Sarai Lieberman 47102.1.1 344 s t 3.430.2.7 Hospit a .3.369154 l .8 2020-08-29 2020-08-30 Bedded [facility] [id number] [facility] 10:20:00 14:10:[address] [facility] 00 l [facility] 2020-08-29 2020-08-30 Outpatient [facility], [facility] CAR [address] [facility] 05:20:00 09:10:00 [place] Results Test Description Test Time Test Comments Results Result Comments Source Novel Coronavirus 2019 Inhouse 2021-08-03 18:08:00 Test Item Value Reference Range Interpretation Comme nts Novel Coronavirus 2018 Negative Negative Posit bruno results are indicative of the Inhouse (test code = presenc e hxELYR-IkZ-6 RNA, clinical COVNONPUI) correlation wit h patient [...] qualitative detection of nucleic acid s from ztjZRHV-IjP-1 virus and diagn osis of SARS-CoV-2 virusinfection. It is an Emergency Use Authorization ( EUA) testauthorized by the U.S. FDA. BASIC METABOLIC [id number] 09:37:00 Test Item Value Reference Range Interpretation [...] = 9.0 mg/dL 8.0-10.5 N CA) PROTHROMBIN [id number] 09:32:00 Test Item Value Reference Range Interpretation [...] (to prevent recurrent infar ct). 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 [facility] - XR CHEST 1 [id number] 00:00:00 [facility] 1955 Sex: F FAX: Carmenza Kelly DO [phone] [place]: St: ADM FAX: Mike Scales MD [phone] FAX: Bahman Chopra [phone] Name: LIO WATTS : 1955 Age/S: 66/F [address] [place] [address] Unit #: [id number] Loc: [place] [address] Phys: Juwan Choprann Jess [facility] Acct: [id number] Dis Date: Status: ADM IN PHONE #: [phone] Exam Date: 06/17/2021 1320 FAX #: [phone] Reason: WATCHMAN EXAMS: CPT CODE: [id number] XR CHEST 1 V 31593 PROCEDURE INFORMATION: Exam: XR Chest Exam date [...] Chopra Technologist: RT Taylor(R) Trnscrd Date/Time/By: 06/17/2021 (7654) : By: [email or web address] Orig Print D/T: S: 06/17/2021 (7069) PAGE 1 Signed ReportCOVID 19 Asymptomatic IH [...] high or waivedcomplexit y tests. BASIC METABOLIC [id number] 11:37:00 Test Item Value Reference Range Interpretation [...] code = 9.0 mg/dL 8.0-10.5 N CA) [id number] 11:37:00 Test Item Value Reference Range Interpretation Comments PREALBUMIN (test code = PREALB) 24.3 mg/dL 16.0-40.0 N PROTHROMBIN [id number] 11:03:00 Test Item Value Reference Range Interpretation [...] (to prevent recurrent infar ct). CBC W/AUTO [id number] 10:59:00 Test Item Value Reference Range Interpretation [...] 0.0-0.1 N NRBC#) - XR CHEST 2 [id number] 00:00:00 [facility] : 1955 Sex: F FAX: Carmenza Kelly DO [phone] [place]: St: PRE FAX: Mike Scales MD [phone] Name: LIO WATTS [facility] : 1955 Age/S: 66/F [address] [place], [place] [address]vd Unit #: [id number] Loc: [place] [address] Phys: Mike Lund MD Acct: [id number] Dis Date: Status: PRE [facility] PHONE #: [phone] Exam Date: 06/16/20211119 FAX #: [phone] Reason: PREOP EXAMS: CPT CODE: [id number] XR CHEST 2 V 73924 PROCEDURE INFORMATION: Exam: XR Chest Exam date [...] Technologist: Danielle Nix RT(R) Trnscrd Date/Time/By: 06/16/2021 (8266) : By: [email or web address] Orig Print D/T: S: 06/16/2021 (7665) PAGE 1 Signed ReportGastrointestinal bhzbi9199-36-39 04:35:05 Test Item Value Reference Interpretation Comments [...] Rotavirus PCR (test Not Detected code = 6054609) Salmonella PCR (test Not Detected code = [...] PCR Not Detected (test code = 7124) [facility] nrsadob4506[facility]76-05 19:30:47 Test Item Value Reference Range Interpretation Comments Case number (test [id number] code = 0814524) Surgical pathology See link below for PDF report (test code = Lab Report 2255) Result status (test This is Supplemental code = 4101728) Report for [id number] [facility]2021-04-09 16:31:00 Test Item Value Reference Range Interpretation Comments POC Activated Clotting Time (test code 153 s = POC Activated Clotting Time) [place] 034891-04-09 16:31:00 Test Item Value Reference Range Interpretation Comments POC Activated Clotting Time (test code 153 s = POC Activated Clotting Time) [place] 034891-04-09 16:31:00 Test Item Value Reference Range Interpretation Comments POC Activated Clotting Time (test code 153 s = POC Activated Clotting Time) [place] 034891-04-09 16:31:00 Test Item Value Reference Range Interpretation Comments POC Activated Clotting Time (test code 153 s = POC Activated Clotting Time) [place] 034891-04-09 16:31:00 Test Item Value Reference Range Interpretation Comments POC Activated Clotting Time (test code 153 s = POC Activated Clotting Time) [place] 034891-04-09 16:31:00 Test Item Value Reference Range Interpretation Comments POC Activated Clotting Time (test code 153 s = POC Activated Clotting Time) [place] 034891-04-09 16:31:00 Test Item Value Reference Range Interpretation Comments POC Activated Clotting Time (test code 153 s = POC Activated Clotting Time) [place] 034891-04-09 14:37:00 Test Item Value Reference Range Interpretation Comments POC Activated Clotting Time (test code 454 s = POC Activated Clotting Time) [address]04-09 14:37:00 Test Item Value Reference Range Interpretation Comments POC Activated Clotting Time (test code 454 s = POC Activated Clotting Time) [place] 034891-04-09 14:37:00 Test Item Value Reference Range Interpretation Comments POC Activated Clotting Time (test code 454 s = POC Activated Clotting Time) [address]04-09 14:37:00 Test Item Value Reference Range Interpretation Comments POC Activated Clotting Time (test code 454 s = POC Activated Clotting Time) [address]04-09 14:37:00 Test Item Value Reference Range Interpretation Comments POC Activated Clotting Time (test code 454 s = POC Activated Clotting Time) [place] 034891-04-09 14:37:00 Test Item Value Reference Range Interpretation Comments POC Activated Clotting Time (test code 454 s = POC Activated Clotting Time) [facility]IwrdvcsRBGFYEMXPB6161-87-18 14:37:00 Test Item Value Reference Range Interpretation Comments POC Activated Clotting Time (test code 454 s = POC Activated Clotting Time) [facility] CypressCgquvqeVKAAMSUMCQ4747-34-11 14:13:00 Test Item Value Reference Range Interpretation Comments POC Activated Clotting Time (test code 354 s = POC Activated Clotting Time) [facility] CypressOnywosgPSZMBCTGWE1273-75-65 14:13:00 Test Item Value Reference Range Interpretation Comments POC Activated Clotting Time (test code 354 s = POC Activated Clotting Time) [facility] CypressGcnxubjTYFHMGQHXM0311-42-78 14:13:00 Test Item Value Reference Range Interpretation Comments POC Activated Clotting Time (test code 354 s = POC Activated Clotting Time) [facility] CypressVnkhhusTQGMYKYFZS6784-65-45 14:13:00 Test Item Value Reference Range Interpretation Comments POC Activated Clotting Time (test code 354 s = POC Activated Clotting Time) [facility] CypressUjefjomVZNEONAIKD9100-99-00 14:13:00 Test Item Value Reference Range Interpretation Comments POC Activated Clotting Time (test code 354 s = POC Activated Clotting Time) [facility] CypressKxwhlwiCSDJWHIQUV4338-10-74 14:13:00 Test Item Value Reference Range Interpretation Comments POC Activated Clotting Time (test code 354 s = POC Activated Clotting Time) [facility] CypressKigvmspXKSDHQJCEU8574-60-15 14:13:00 Test Item Value Reference Range Interpretation Comments POC Activated Clotting Time (test code 354 s = POC Activated Clotting Time) [facility] KZAEWAN1868-55-41 10:37:00Negative (08/29/20 5:37 AM) [facility] TVDXH2005-87-00 10:37:16524Inlxxzem HermannCHEM PANEL 2020-08-29 10:37:0028[facility]annCHEM OWRAP7341-80-62 10:37:001.01[facility]annCHEM OUIFW0179-30-99 10:37:13209Kuhhdtft HermannCHEM MWEIG3105-80-23 10:37:003.8[facility] HermannCHEM CCEOT5025-37-75 10:37:54124Hnhegkiv HermannCHEM WIZCN0361-39-85 10:37:0028[facility]annCHEM VIMZK9358-13-20 10:37:009.8 [facility]annCHEM IPVIX5584-87-82 10:37:0011.8[facility] HermannCHEM PANEL 2020-08-29 10:37:0059[facility] HermannCHEM UZLJR9206-46-98 10:37:002.9[facility] VyetmxbENHDQWTNNJ0035-79-16 10:37:006.8[facility] WmfljaxVHNOUTVLWH1768-96-46 10:37:004.47[facility] ZqwcgfeKTKNYVGHIJ8860-00-12 10:37:0010.6[facility] PXMUCMTIVT2455-87-21 10:37:0034.0[facility] YzharthXPUVTEGIUP3862-30-47 10:37:00 76.1[facility] SmlykkgLDDBJQYJDV9014-50-45 10:37:00 Test Item Value Reference Range Interpretation Comments MCH (test code = MCH) 23.8 pg 27.0-31.0 [facility] FxvulvbIPQJYCEQDR4333-92-27 10:37:0031.3[facility]annHEMATOLOGY 2020-08-29 10:37:0018.2[facility] YaehcvxDUQTTURYKU4219-25-95 10:37:16607Jjysyizb KhbyfotYNPZHLMQOL0520-76-71 10:37:007.5[facility] XaqibtyNALKLZVZNR2863-08-18 10:37:00 Test Item Value Reference Range Interpretation Comments PT (test code = PT) 12.8 s 12.0-14.7 [facility] AwpqajvBZLSNCUPPA6985-30-15 10:37:00 Test Item Value Reference Range Interpretation Comments INR (test code = INR) 0.97 1 0.85-1.17 [facility] MjfyfihHPESTUXSSV2572-85-43 10:37:00 Test Item Value Reference Range Interpretation Comments PTT (test code = PTT) 25.0 s 22.9-35.8 [facility] DcziaarXLKQMVUTWN2791-68-25 10:37:0070.5[facility]annHEMATOLOGY 2020-08-29 10:37:0018.8[facility] IkvtwyyCBBBNWNKRP3181-21-53 10:37:009.5[facility] QevdadpVPIWYAWFMO9796-05-76 10:37:000.9[facility] FwtixftCINQOXUJLB5654-64-52 10:37:000.3[facility] ZdfheslESOIJCAWBY4719-81-06 10:37:004.8[facility] MRTAVHRDOO5781-81-24 10:37:001.3[facility] KjiuwgdGFPVHMZQGG7347-40-18 10:37:000.6 [facility] FbxmdknCKVPGDRUXZ8981-67-08 10:37:000.1[facility] HermannHEMATOLOGY 2020-08-29 10:37:001+ *ABN*(08/29/20 5:37 AM)[facility] NmtrhmgIBAKRHEDIP3403-26-61 10:37:00Not Detected (08/29/20 5:37 AM)[facility] HermannBLOOD BANK RESULTS 2020-08-29 10:37:00Negative (08/29/20 5:37 AM)[facility] HermannCHEM WUTIR2041-16-09 10:37:52690Hwnkhihw HermannCHEM MAWBR1641-45-36 10:37:0028[facility] HermannCHEM NYHUY2046-38-55 10:37:001.01[facility] HermannCHEM DMKJB9989-99-82 10:37:62219 [facility] HermannCHEM LCLLP1854-36-51 10:37:003.8[facility] HermannCHEM PANEL 2020-08-29 10:37:07198Wrisabij HermannCHEM RWAEZ2489-93-98 10:37:0028[facility] HermannCHEM SVLIM0046-65-27 10:37:009.8[facility] HermannCHEM PZZAE7911-75-62 10:37:0011.8[facility] HermannCHEM BCZCP2737-35-20 10:37:0059[facility] HermannCHEM CZSJG1679-94-67 10:37:002.9[facility] KvwmnamTZMRKBSBCS3266-89-85 10:37:006.8 [facility] QasitjsKMEWYGWQBZ8766-34-72 10:37:004.47[facility] HermannHEMATOLOGY 2020-08-29 10:37:0010.6[facility] KqsnrorODGIIHYMOX9099-07-30 10:37:0034.0[facility] GnqyromUDYIELEZOD4808-59-81 10:37:0076.1[facility] DplxenlQLXRYACQWO0574-03-30 10:37:00 Test Item Value Reference Range Interpretation Comments MCH (test code = MCH) 23.8 pg 27.0-31.0 [facility] QixabbbESKCSSMXTU5629-38-34 10:37:0031.3[facility] HermannHEMATOLOGY 2020-08-29 10:37:0018.2[facility] LurqhfbKBRUAXFAED2146-20-06 10:37:25423Uabwqukg PmybuzzIPAKUYHQHL4965-70-36 10:37:007.5[facility] WwizeouJTTCYRCTUX8078-89-17 10:37:00 Test Item Value Reference Range Interpretation Comments PT (test code = PT) 12.8 s 12.0-14.7 [facility] GzajqhdMXMLLWIJAW7877-65-13 10:37:00 Test Item Value Reference Range Interpretation Comments INR (test code = INR) 0.97 1 0.85-1.17 [facility] RnblejxIAHHCBCMLX8342-37-26 10:37:00 Test Item Value Reference Range Interpretation Comments PTT (test code = PTT) 25.0 s 22.9-35.8 [facility] GoxkuvvLSPKOLMAGG7969-38-52 10:37:0070.5[facility] HermannHEMATOLOGY 2020-08-29 10:37:0018.8[facility] ZnqwmawBITZXAXCES3463-21-32 10:37:009.5[facility] CvacuaeBLAQGIKGQZ5247-23-90 10:37:000.9[facility] VaqkfytFYMKWRZQIV8995-63-12 10:37:000.3[facility] YudsirvIJPUVTLUCU3384-01-68 10:37:004.8[facility] NGEYWSADMW1041-32-07 10:37:001.3[facility] HgaljcwBLBGHTVPDF4486-57-46 10:37:000.6 [facility] FnibpojRHZPYOLBUA0674-02-70 10:37:000.1[facility] HermannHEMATOLOGY 2020-08-29 10:37:001+ *ABN*(08/29/20 5:37 AM)[facility] EinrnhwEQMZWIORDA4212-03-49 10:37:00Not Detected (08/29/20 5:37 AM)[facility] HermannBLOOD BANK RESULTS 2020-08-29 10:37:00Negative (08/29/20 5:37 AM)[facility] HermannCHEM TMZHR0171-61-56 10:37:35423Zoemeffm HermannCHEM KPOBE1007-58-56 10:37:0028[facility] HermannCHEM WYREN0205-07-04 10:37:001.01[facility] HermannCHEM KQQDZ5289-33-07 10:37:14783 [facility] HermannCHEM YPLZX8126-60-99 10:37:003.8[facility] HermannCHEM PANEL 2020-08-29 10:37:46275Uoikrbem HermannCHEM XCPVR8046-25-31 10:37:0028[facility] HermannCHEM DLZTB4045-68-05 10:37:009.8[facility] HermannCHEM TOLLH1905-18-27 10:37:0011.8[facility] HermannCHEM EHJTR7809-99-76 10:37:0059[facility] HermannCHEM UXOOA5565-33-54 10:37:002.9[facility] CzzwcuaSWYMIXKJBR4769-08-72 10:37:006.8 [facility] RysebiuHJRJJFEDXD7308-41-09 10:37:004.47[facility] HermannHEMATOLOGY 2020-08-29 10:37:0010.6[facility] NgsnkpnVEPPZMMXDC5249-81-10 10:37:0034.0[facility] KulexqiQTUEAXZKKX4934-65-73 10:37:0076.1[facility] NcfrlemPSUANMMJDN7405-43-51 10:37:00 Test Item Value Reference Range Interpretation Comments MCH (test code = MCH) 23.8 pg 27.0-31.0 [facility] WvsqpoxPDNZAIIHBB8778-49-90 10:37:0031.3[facility] HermannHEMATOLOGY 2020-08-29 10:37:0018.2[facility] JbwlsnkCJMUWIWGSZ4262-03-72 10:37:36312Hhxrgcoa NefsoesODCKCATAVM8887-08-38 10:37:007.5[facility] RcpeqefQOVRTQYRGP8430-03-27 10:37:00 Test Item Value Reference Range Interpretation Comments PT (test code = PT) 12.8 s 12.0-14.7 [facility] RoeookzUYNZYZVEKJ3874-40-21 10:37:00 Test Item Value Reference Range Interpretation Comments INR (test code = INR) 0.97 1 0.85-1.17 [facility] EakssrvKHVOHRDGAJ9331-62-04 10:37:00 Test Item Value Reference Range Interpretation Comments PTT (test code = PTT) 25.0 s 22.9-35.8 [facility] YrukeorIQJHLEMRVG6757-85-41 10:37:0070.5[facility] HermannHEMATOLOGY 2020-08-29 10:37:0018.8[facility] VqwigneYJVKTWFBNU0676-36-05 10:37:009.5[facility] VmjgdxiWLLQIHZHWJ0658-70-64 10:37:000.9[facility] LeqhnwkDTRJORJMHE8394-49-43 10:37:000.3[facility] YdxrfgjUSRHDCNQQO1975-87-19 10:37:004.8[facility] EVHEPCWLWB0281-50-87 10:37:001.3[facility] SzcoxghCWKHWYJMOE8369-26-47 10:37:000.6 [facility] HfinbaaTKLUDMQXYA4417-01-31 10:37:000.1[facility] HermannHEMATOLOGY 2020-08-29 10:37:001+ *ABN*(08/29/20 5:37 AM)[facility] AbwqixcBOTQWQXUXH4691-29-29 10:37:00Not Detected (08/29/20 5:37 AM)[facility] HermannBLOOD BANK RESULTS 2020-08-29 10:37:00Negative (08/29/20 5:37 AM)[facility] HermannCHEM FBIEA4524-84-66 10:37:90884Tsnuhxvj HermannCHEM ZNDBZ7000-76-19 10:37:0028[facility] HermannCHEM QHGLY0128-66-22 10:37:001.01[facility] HermannCHEM RLWBL2345-32-97 10:37:61843 [facility] HermannCHEM JVJDT3509-61-12 10:37:003.8[facility] HermannCHEM PANEL 2020-08-29 10:37:45594Nukatlns HermannCHEM NJUZM3918-54-32 10:37:0028[facility] HermannCHEM CELAH2104-77-87 10:37:009.8[facility] HermannCHEM GLERQ2969-44-46 10:37:0011.8[facility] HermannCHEM CGEBY4356-90-90 10:37:0059[facility] HermannCHEM ZUHGK7841-48-58 10:37:002.9[facility] MlhhumbTDJZXGKRBJ1958-33-43 10:37:006.8 [facility] NjujgscWBXYUEPSVL6538-07-37 10:37:004.47[facility] HermannHEMATOLOGY 2020-08-29 10:37:0010.6[facility] HsifqyzOYKHOREYLS2674-46-87 10:37:0034.0[facility] CxqxrbjJTCNXNKBOX5217-54-14 10:37:0076.1[facility] MngybozWBGKAPEIYL9617-89-62 10:37:00 Test Item Value Reference Range Interpretation Comments MCH (test code = MCH) 23.8 pg 27.0-31.0 [facility] NsdqhftCCABPFGWPO8163-51-70 10:37:0031.3[facility] HermannHEMATOLOGY 2020-08-29 10:37:0018.2[facility] PretnwfZLWWAEEPWR2456-72-54 10:37:76981Pptzpejw TdkcnggFSYNITUYWH5454-91-79 10:37:007.5[facility] AicmktxYJMBCCCYFL0966-57-75 10:37:00 Test Item Value Reference Range Interpretation Comments PT (test code = PT) 12.8 s 12.0-14.7 [facility] AcvgkmxJYVDWJKMCJ0538-29-89 10:37:00 Test Item Value Reference Range Interpretation Comments INR (test code = INR) 0.97 1 0.85-1.17 [facility] BrlvlaeGGMUBAWQKY9396-44-55 10:37:00 Test Item Value Reference Range Interpretation Comments PTT (test code = PTT) 25.0 s 22.9-35.8 [facility] VjpmhegIFBYZTIFPC5406-05-04 10:37:0070.5[facility] HermannHEMATOLOGY 2020-08-29 10:37:0018.8[facility] LmqfwfxYURYOHWDRH7137-11-76 10:37:009.5[facility] BedyiqnGAQPQFEVTO1611-27-79 10:37:000.9[facility] FbvmemhYUCRJKVBXE7740-65-80 10:37:000.3[facility] OaiizkxMUGCPKDGHY1534-69-27 10:37:004.8[facility] PVQTAVDZDJ0924-61-10 10:37:001.3[facility] CjbxlnbZYWEFHIYKB6608-93-39 10:37:000.6 [facility] PsettwsGGNGZGBLCN1401-36-96 10:37:000.1[facility] HermannHEMATOLOGY 2020-08-29 10:37:001+ *ABN*(08/29/20 5:37 AM)[facility] RnmwhylOJOOAFBBZY1193-71-10 10:37:00Not Detected (08/29/20 5:37 AM)[facility] HermannBLOOD BANK RESULTS 2020-08-29 10:37:00Negative (08/29/20 5:37 AM)[facility] HermannCHEM LMPCC1261-10-09 10:37:31356Svdvumyk HermannCHEM SZLBB8766-72-83 10:37:0028[facility] HermannCHEM ZXWJV3860-23-69 10:37:001.01[facility] HermannCHEM ZGDSJ2061-22-65 10:37:91180 [facility] HermannCHEM OMVJN6046-78-27 10:37:003.8[facility] HermannCHEM PANEL 2020-08-29 10:37:42109Xwpllzcr HermannCHEM HEWJI6525-13-50 10:37:0028[facility] HermannCHEM XHZBN6344-06-41 10:37:009.8[facility] HermannCHEM AMIRN9993-89-79 10:37:0011.8[facility] HermannCHEM FFFIQ5754-15-59 10:37:0059[facility] HermannCHEM BFAVJ3098-84-73 10:37:002.9[facility] QhdhulcLHCKRPSDCT5822-10-02 10:37:006.8 [facility] AfimyuwWMUDHEZWPA1449-85-47 10:37:004.47[facility] HermannHEMATOLOGY 2020-08-29 10:37:0010.6[facility] TskamkgMGVFWXATVD0215-97-35 10:37:0034.0[facility] SjeyyveRAOBAVRNZA0199-77-70 10:37:0076.1[facility] XsgdzhfORYDGLXDSG1093-46-65 10:37:00 Test Item Value Reference Range Interpretation Comments MCH (test code = MCH) 23.8 pg 27.0-31.0 [facility] EpzsfqtUXWQNPPCAC7938-37-51 10:37:0031.3[facility] HermannHEMATOLOGY 2020-08-29 10:37:0018.2[facility] CgalgfiPGFRIVAEPY0995-46-70 10:37:29663Oouzlpkz McmpwhpVJQQEDVPIK2108-30-26 10:37:007.5[facility] ApmqedsELEUMQAHJQ1074-76-93 10:37:00 Test Item Value Reference Range Interpretation Comments PT (test code = PT) 12.8 s 12.0-14.7 [facility] ZfgidykROLBZWSTQZ2687-70-70 10:37:00 Test Item Value Reference Range Interpretation Comments INR (test code = INR) 0.97 1 0.85-1.17 [facility] DxdojxoJRCETIUEHJ4030-33-95 10:37:00 Test Item Value Reference Range Interpretation Comments PTT (test code = PTT) 25.0 s 22.9-35.8 [facility] GczfwoiEGACEYSGCD6398-48-62 10:37:0070.5[facility] HermannHEMATOLOGY 2020-08-29 10:37:0018.8[facility] YxnjvwcVTLIPALJBX7263-70-98 10:37:009.5[facility] TqcwktnGCNPCVGCRT8792-63-09 10:37:000.9[facility] ZllipzkYANWKIVKKG4788-48-06 10:37:000.3[facility] LvedncvTCLZGLDQEC3081-70-55 10:37:004.8[facility] NNVPAXZCUS4894-12-85 10:37:001.3[facility] OtfddufDRATZPIWEF3128-32-85 10:37:000.6 [facility] OhxfpwaEQKXIHDCNN2863-65-23 10:37:000.1[facility] HermannHEMATOLOGY 2020-08-29 10:37:001+ *ABN*(08/29/20 5:37 AM)[facility] TkunaxnALUKFQWJJZ7512-61-98 10:37:00Not Detected (08/29/20 5:37 AM)[facility] HermannBLOOD BANK RESULTS 2020-08-29 10:37:00Negative (08/29/20 5:37 AM)[facility] HermannCHEM IOQQO3054-30-44 10:37:29247Ceuscwfu HermannCHEM YYCNV9726-24-92 10:37:0028[facility] HermannCHEM JZEKM3161-74-06 10:37:001.01[facility] HermannCHEM UPASF5049-40-87 10:37:06540 [facility] HermannCHEM TGOEZ7153-12-74 10:37:003.8[facility] HermannCHEM PANEL 2020-08-29 10:37:60143Khiegkyo HermannCHEM FNRLE4249-15-88 10:37:0028[facility] HermannCHEM KNLNA8223-53-03 10:37:009.8[facility] HermannCHEM FAKZR9167-99-52 10:37:0011.8[facility] HermannCHEM FUCGH1472-34-45 10:37:0059[facility] HermannCHEM PLKQQ4308-16-90 10:37:002.9[facility] IjspitqXBPHMNFCPA4182-36-65 10:37:006.8 [facility] HlecxbdPEWMQJHWAX4465-48-45 10:37:004.47[facility] HermannHEMATOLOGY 2020-08-29 10:37:0010.6[facility] PgjgpilQJKBHOUVTZ8041-83-47 10:37:0034.0[facility] ZhfozubOZJBIVPUEE0228-66-48 10:37:0076.1[facility] LrotmtsFBAUNCSLFX1759-84-02 10:37:00 Test Item Value Reference Range Interpretation Comments MCH (test code = MCH) 23.8 pg 27.0-31.0 [facility] KooayurTFAREUPHYK1117-95-19 10:37:0031.3[facility] HermannHEMATOLOGY 2020-08-29 10:37:0018.2[facility] MvyrpxfTGXWJMDMPO1516-19-29 10:37:75269Lcgfmrnh CikixswJOFIOQWJOP5469-27-61 10:37:007.5[facility] JixdnyzZSCRTPNHRK7901-51-63 10:37:00 Test Item Value Reference Range Interpretation Comments PT (test code = PT) 12.8 s 12.0-14.7 [facility] OdsehjzNUDTZBILUW7067-68-27 10:37:00 Test Item Value Reference Range Interpretation Comments INR (test code = INR) 0.97 1 0.85-1.17 [facility] TheuclgKTZFYPIHVB3895-77-32 10:37:00 Test Item Value Reference Range Interpretation Comments PTT (test code = PTT) 25.0 s 22.9-35.8 [facility] AoekzkvUATKZUURBJ6244-01-38 10:37:0070.5[facility] HermannHEMATOLOGY 2020-08-29 10:37:0018.8[facility] DdetfqvBSZKLJXSWC6277-77-37 10:37:009.5[facility] KxscjlxUFRPJLOZRX7276-49-68 10:37:000.9[facility] RbyfdfaBWBZYEJEHL8106-65-02 10:37:000.3[facility] MzbuxrbLLGRGPBIVV2356-59-27 10:37:004.8[facility] HBEWGNTZEA5791-94-58 10:37:001.3[facility] JtkoymvRYMCVJZTIB8939-61-73 10:37:000.6 [facility] UqxilmdHFTMWTFEVX4915-95-45 10:37:000.1[facility]annHEMATOLOGY 2020-08-29 10:37:001+ *ABN*(08/29/20 5:37 AM)[facility] LdtzjltASOVTJJHSP1901-92-34 10:37:00Not Detected (08/29/20 5:37 AM)[facility] RES[facility] 2020-08-29 10:37:00Negative (08/29/20 5:37 AM)[facility]annCHEM SVHJI2598-88-83 10:37:37650Tsnejnnh HermannCHEM BERYQ7856-74-79 10:37:0028[facility]annCHEM KYPHE0111-37-80 10:37:001.01[facility]annCHEM UFPON0919-23-41 10:37:71267 [facility]annCHEM RBNIH8134-08-23 10:37:003.8[facility]annCHEM PANEL 2020-08-29 10:37:46343Jvukmmdl HermannCHEM GLKJI5079-14-36 10:37:0028[facility]annCHEM HRJJC2264-04-33 10:37:009.8[facility] HermannCHEM IEQYL7456-85-80 10:37:0011.8[facility]annCHEM QOXRV9096-95-17 10:37:0059[facility]annCHEM HWLLE0658-50-26 10:37:002.9[facility] YijbrooLJIHUBTYBX1692-79-32 10:37:006.8 [facility] GwovhygRVELFGWGOJ5821-01-16 10:37:004.47[facility]annHEMATOLOGY 2020-08-29 10:37:0010.6[facility] QzljnevAECRWQMJVV4563-39-99 10:37:0034.0[facility] UvcxehmGPMZOPTKTE4844-94-83 10:37:0076.1[facility] JqcxrhzWZGINDEEND8110-58-80 10:37:00 Test Item Value Reference Range Interpretation Comments MCH (test code = MCH) 23.8 pg 27.0-31.0 [facility] KzabyvzKNGODWAQXX3351-01-50 10:37:0031.3[facility]annHEMATOLOGY 2020-08-29 10:37:0018.2[facility] PxnhellLAJTENLVDO3144-61-50 10:37:38709Zwuztipe WosojzpYFJYWDZPHE7384-59-19 10:37:007.5[facility] VxrdkutPGQRHRGJRV3125-62-29 10:37:00 Test Item Value Reference Range Interpretation Comments PT (test code = PT) 12.8 s 12.0-14.7 [facility] KqmhsrkIIMYEYHYVV6624-29-06 10:37:00 Test Item Value Reference Range Interpretation Comments INR (test code = INR) 0.97 1 0.85-1.17 [facility] IdwqmnwZGMGHPGNXU3473-22-45 10:37:00 Test Item Value Reference Range Interpretation Comments PTT (test code = PTT) 25.0 s 22.9-35.8 [facility] ZoeiwnmUREGBCMXUI2424-43-74 10:37:0070.5[facility]annHEMATOLOGY 2020-08-29 10:37:0018.8[facility] VyixiixRXBJCTMVZI8799-18-75 10:37:009.5[facility] HsrcqpxYNFBGHAZSI6255-93-39 10:37:000.9[facility] NpvjnizBCOLKCGPZD9402-99-73 10:37:000.3[facility] WwwpjunITOAFKYUNK7143-65-97 10:37:004.8[facility] OUEUVNQGFC8433-77-71 10:37:001.3[facility] IurqmvvOQGVSEANNY6136-30-92 10:37:000.6 [facility] CydbjsqOFTBKNOWNB5011-79-33 10:37:000.1[facility]annHEMATOLOGY 2020-08-29 10:37:001+ *ABN*(08/29/20 5:37 AM)[facility] OpqzwzxZRIYMOAKSR8860-05-55 10:37:00Not Detected (08/29/20 5:37 AM)[facility]ARM[facility], GC, TV,PCR, IN FFNZK9128-91-22 15:38:00 Test Item Value Reference Range Interpretation Comments FT (test code = CHTR) Not detected (qualifier Not Detected N value) FT (test code = Not detected (qualifier Not Detected N NGONO) value) FT (test code = TRVG) Not detected (qualifier Not Detected N value) URINALYSIS WITH UTAMBZOTRKY9713-80-49 10:57:00 Test Item Value Reference Range Interpretation Comments Color (test code = UCOLR) Dk. Yellow Clarity (test code = UCLAR) Hazy Glucose (test code = UGLUC) NEGATIVE NEGATIVE N Bilirubin (test code = UBILI) NEGATIVE NEGATIVE N Ketones (test code = UKET) NEGATIVE NEGATIVE N Specific [place] (test code = 1.025 1.005-1.030 A USPGR) [...]
[2021-12-26] MEDS ORDERED: DIPHENHYDRAMINE 50 MG/ML VIAL ONE (11:03)
[2021-12-26] MEDS ORDERED: FAMOTIDINE 20 MG/2 ML VIAL IV ONE (11:04)
[2021-12-26] MEDS ORDERED: IBUPROFEN 200 MG TAB PO ONE (11:38)
[2021-12-26] MEDS ORDERED: IBUPROFEN 400 MG TAB ONE (11:38)
[2021-12-26 12:11] LABS: Absolute Lymphocytes (CBC) 1.5 K/uL (0.7-4.9); Lymphocytes % 24.9 % (15.3-44.8); MCV 83.8 fL (80-100); MPV 6.6 fL (7.6-11.3); RBC Red Blood Cell Count 4.77 M/uL (3.86-4.86)
[2021-12-26 12:28] LABS: Potassium 2.6 mmol/L (3.5-5.1)
--- NOTE | 2021-12-26 12:35 | ER ---
Nurse's Notes [facility] Name: Fawn Fleming Age: 66 yrs Sex: Female : 1955 Arrival Date: 12/26/2021 Time: 10:22 Bed 11 Private MD: Lele Rahman H Diagnosis: Allergic urticaria Presentation: 12/26 10:36 Chief complaint: Patient states: she was evaluated yesterday in the ED for hives and ap3 itching that began Tuesday December 21, 2021. patient states that she isn't having a relief of symptoms and is back today in hopes of getting relief. patient states he isn't sure where the hives have originated from. Coronavirus screen: At this time, the client does not indicate any symptoms associated with coronavirus-19. Ebola Screen: No symptoms or risks identified at this time. Onset: The symptoms/episode began/occurred yesterday. Anaphylaxis evaluation, no signs or symptoms of anaphylaxis were noted. Initial Sepsis Screen: Does the patient meet any 2 criteria? No. Patient's initial sepsis screen is negative. Does the patient have a suspected source of infection? No. Patient's initial sepsis screen is negative. Risk Assessment: Do you want to hurt yourself or someone else? Patient reports no desire to harm self or others. Onset of symptoms was December 21, 2021. 10:36 Method Of Arrival: Wheelchair ap3 10:36 Acuity: BLAYNE 4 ap3 11:12 Acuity: BLAYNE 3 iw Triage Assessment: 10:39 General: Appears uncomfortable, Behavior is restless, scratching herself on her lower ap3 and upper extremities. Pain: Denies pain. Neuro: Level of Consciousness is awake, alert, obeys commands, Oriented to person, place, time, situation, Speech is normal. Cardiovascular: Patient's skin is warm and dry. Respiratory: Airway is patent Respiratory effort is even, unlabored, Respiratory pattern is regular, symmetrical. Derm: Rash noted that is itchy, Reports itching. Historical: - Allergies: 10:38 Bactrim DS; ap3 10:38 butorphanol tartrate; ap3 10:38 Fentanyl; ap3 10:38 Reglan; ap3 10:38 Stadol; ap3 10:38 sulfamethoxazole (bulk); ap3 10:38 TRIMETHOPRIM; ap3 - PMHx: 10:38 Anxiety; Atrial Fib; Bipolar disorder; Chronic pain; COPD; esophageal varices; ap3 Hepatitis; HIV; Hypertension; Migraines; Panic Attacks; - PSHx: 10:38 Appendectomy; Bilateral shoulder repair; Cholecystectomy; hernia repair; R wrist SX; ap3 - Immunization history:: Client reports receiving the 2nd dose of the Covid vaccine. - Social history:: Smoking status: Patient denies any tobacco usage or history of. Screenin:41 Abuse screen: Denies threats or abuse. Nutritional screening: No deficits noted. ap3 Tuberculosis screening: No symptoms or risk factors identified. Fall Risk Fall in past 12 months (25 points). Secondary diagnosis (15 points) impaired mobility, Ambulatory Aid- Crutches/Cane/Walker (15 pts). Gait- Weak (10 pts.). Mental Status- Oriented to own ability (0 pts). Total Hauser Fall Scale indicates High Risk Score (45 or more points). Fall prevention measures have been instituted. Side Rails Up X 2 Placed Close to Nursing Station Frequent Obs/Assessments Occuring As available patient and family educated on Fall Prevention Program and Strategies. Assessment: 10:52 Reassessment: ED provider at bedside to assess. bm7 11:03 General: Appears in no apparent distress. uncomfortable, Behavior is calm, cooperative, bm7 appropriate for age. Pain: Denies pain. Pain: Denies pain. Neuro: No deficits noted. Cardiovascular: No deficits noted. Respiratory: No deficits noted. Airway is patent Respiratory effort is even, unlabored, Respiratory pattern is regular, symmetrical, Breath sounds are clear bilaterally. GI: No deficits noted. No signs and/or symptoms were reported involving the gastrointestinal system. : No deficits noted. No signs and/or symptoms were reported regarding the genitourinary system. EENT: No deficits noted. No signs and/or symptoms were reported regarding the EENT system. Derm: Skin is intact, is fragile, is thin, Skin is dry, Skin is normal, Skin temperature is warm Rash noted that is itchy, red. Musculoskeletal: No deficits noted. No signs and/or symptoms reported regarding the musculoskeletal system. 11:57 Reassessment: lab at bedside to obtain lab orders. bm7 12:06 Reassessment: No changes from previously documented assessment. Patient and/or family bm7 updated on plan of care and expected duration. Pain level reassessed. Patient is alert, oriented x 3, equal unlabored respirations, skin warm/dry/pink. 12:46 Reassessment: patient refuses to drink potassium. pt states she is going to throw away bm7 discharge papers. Vital Signs: 10:36 BP 145 / 78; Pulse 56; Resp 18; Temp 97.8; Pulse Ox 99% ; Weight 80.74 kg; Height 5 ft. ap3 4 in. (162.56 cm); 12:23 BP 140 / 76; Pulse 74; Resp 16; Pulse Ox 100% on R/A; bm7 10:36 Body Mass Index 30.55 (80.74 kg, 162.56 cm) ap3 ED Course: 10:22 Patient arrived in ED. am2 10:23 Lele Rahman DO is Private Physician. am2 10:38 Triage completed. ap3 10:41 Arm band placed on right wrist. ap3 10:41 Patient has correct armband on for positive identification. Bed in low position. Call ap3 light in reach. Side rails up X 1. Pulse ox on. NIBP on. 10:42 Medhat Boyer is PHCP. jl9 10:42 Justus Kolb MD is Attending Physician. jl9 10:51 Cinthia Rome, ASHLEY is Primary Nurse. bm7 11:03 No provider procedures requiring assistance completed. bm7 12:46 Patient did not have IV access during this emergency room visit. bm7 Administered Medications: 11:02 Drug: Benadryl (diphenhydrAMINE) 50 mg Route: IM; Site: right gluteus; bm7 12:35 Follow up: Response: No adverse reaction bm7 11:02 Drug: Famotidine 40 mg Route: IM; Site: left gluteus; bm7 12:35 Follow up: Response: No adverse reaction bm7 11:28 Drug: Ibuprofen 600 mg Route: PO; bm7 12:46 Follow up: Response: No adverse reaction bm7 12:46 Not Given (Patient Refused): Potassium Effervescent Tablet 50 mEq PO once; dissolve in bm7 4 ounces of water or juice Medication: 11:03 VIS not applicable for this client. bm7 Outcome: 12:35 Discharge ordered by MD. jl9 12:46 Discharged to home via wheelchair. bm7 12:46 Condition: good 12:46 Discharge instructions given to patient, Instructed on discharge instructions, follow up and referral plans. Demonstrated understanding of instructions, follow-up care. 12:48 Patient left the ED. bm7 Signatures: Jacquelin Meier, RN Danielle Ulloa am2 Danielle Arango RN RN ap3 Cinthia Rome RN RN bm7 Medhat Boyer9
--- NOTE | 2021-12-26 12:35 | EDPHYS ---
Physician Documentation [facility] Name: Fawn Fleming Age: 66 yrs Sex: Female : 1955 Arrival Date: 12/26/2021 Time: 10:22 Bed 11 Private MD: Lele Rahman H ED Physician Justus Kolb HPI: 12/26 12:30 This 66 yrs old Female presents to ER via Wheelchair with complaints of jl9 Itching, and generalized rash. . 12:30 Onset: The symptoms/episode began/occurred 2 day(s) ago. Associated signs and symptoms: jl9 Pertinent positives: Pertinent negatives: chest pain, shortness of breath. The patient has been recently seen at the [facility] Emergency Department, this week. Historical: - Allergies: 10:38 Bactrim DS; ap3 10:38 butorphanol tartrate; ap3 10:38 Fentanyl; ap3 10:38 Reglan; ap3 10:38 Stadol; ap3 10:38 sulfamethoxazole (bulk); ap3 10:38 TRIMETHOPRIM; ap3 - PMHx: 10:38 Anxiety; Atrial Fib; Bipolar disorder; Chronic pain; COPD; esophageal varices; ap3 Hepatitis; HIV; Hypertension; Migraines; Panic Attacks; - PSHx: 10:38 Appendectomy; Bilateral shoulder repair; Cholecystectomy; hernia repair; R wrist SX; ap3 - Immunization history:: Client reports receiving the 2nd dose of the Covid vaccine. - Social history:: Smoking status: Patient denies any tobacco usage or history of. ROS: 12:31 Constitutional: Negative for fever, chills, and weight loss, Eyes: Negative for injury, jl9 pain, redness, and discharge, ENT: Negative for injury, pain, and discharge, Neck: Negative for injury, pain, and swelling, Cardiovascular: Negative for chest pain, palpitations, and edema, Respiratory: Negative for shortness of breath, cough, wheezing, and pleuritic chest pain, Abdomen/GI: Negative for abdominal pain, nausea, vomiting, diarrhea, and constipation, Back: Negative for injury and pain, MS/Extremity: Negative for injury and deformity. 12:31 Neuro: Negative for headache, weakness, numbness, tingling, and seizure, Psych: Negative for depression, anxiety, suicide ideation, homicidal ideation, and hallucinations. 12:31 Skin: Positive for rash. 12:31 Allergy/Immunology: Positive for hives, rash. 12:32 Endocrine: Negative for neck swelling, polydipsia, polyuria, polyphagia, and marked jl9 weight changes, Hematologic/Lymphatic: Negative for swollen nodes, abnormal bleeding, and unusual bruising. Exam: 12:32 Constitutional: This is a well developed, well nourished patient who is awake, alert, jl9 and in no acute distress. Head/Face: Normocephalic, atraumatic. Eyes: Pupils equal round and reactive to light, extra-ocular motions intact. Lids and lashes normal. Conjunctiva and sclera are non-icteric and not injected. Cornea within normal limits. Periorbital areas with no swelling, redness, or edema. ENT: Mucous membranes moist. Neck: Trachea midline, no thyromegaly or masses palpated, and no cervical lymphadenopathy. Supple, full range of motion without nuchal rigidity, or vertebral point tenderness. No Meningismus. Chest/axilla: Normal chest wall appearance and motion. Nontender with no deformity. No lesions are appreciated. Cardiovascular: Regular rate and rhythm with a normal S1 and S2. No gallops, murmurs, or rubs. Normal PMI, no JVD. No pulse deficits. Respiratory: Lungs have equal breath sounds bilaterally, clear to auscultation and percussion. No rales, rhonchi or wheezes noted. No increased work of breathing, no retractions or nasal flaring. Abdomen/GI: Soft, non-tender, with normal bowel sounds. No distension or tympany. No guarding or rebound. No evidence of tenderness throughout. Back: No spinal tenderness. No costovertebral tenderness. Full range of motion. 12:32 MS/ Extremity: Pulses equal, no cyanosis. Neurovascular intact. Full, normal range of motion. Neuro: Awake and alert, GCS 15, oriented to person, place, time, and situation. Cranial nerves II-XII grossly intact. Motor strength 5/5 in all extremities. Sensory grossly intact. Cerebellar exam normal. Normal gait. Psych: Awake, alert, with orientation to person, place and time. Behavior, mood, and affect are within normal limits. 12:32 Skin: Appearance: rash can be described as urticarial. 12:32 Skin: Generalized rash all over body. . Vital Signs: 10:36 BP 145 / 78; Pulse 56; Resp 18; Temp 97.8; Pulse Ox 99% ; Weight 80.74 kg; Height 5 ft. ap3 4 in. (162.56 cm); 12:23 BP 140 / 76; Pulse 74; Resp 16; Pulse Ox 100% on R/A; bm7 10:36 Body Mass Index 30.55 (80.74 kg, 162.56 cm) ap3 MDM: 10:42 Patient medically screened. jl9 12:33 Data reviewed: vital signs, nurses notes, old medical records. Counseling: I had a jl9 detailed discussion with the patient and/or guardian regarding: the historical points, exam findings, and any diagnostic results supporting the discharge/admit diagnosis, the need for outpatient follow up, to return to the emergency department if symptoms worsen or persist or if there are any questions or concerns that arise at home. 12:35 Medication response: Benadryl. Improved. . jl9 12/26 11:10 Order name: BMP; Complete Time: 12:28 9 12/26 11:10 Order name: CBC with Diff jl9 Administered Medications: 11:02 Drug: Benadryl (diphenhydrAMINE) 50 mg Route: IM; Site: right gluteus; bm7 12:35 Follow up: Response: No adverse reaction bm7 11:02 Drug: Famotidine 40 mg Route: IM; Site: left gluteus; bm7 12:35 Follow up: Response: No adverse reaction bm7 11:28 Drug: Ibuprofen 600 mg Route: PO; bm7 12:46 Follow up: Response: No adverse reaction bm7 12:46 Not Given (Patient Refused): Potassium Effervescent Tablet 50 mEq PO once; dissolve in bm7 4 ounces of water or juice Disposition Summary: 12/26/21 12:35 Discharge Ordered Location: Home jl9 Condition: Stable jl9 Diagnosis - Allergic urticaria jl9 Followup: jl9 - With: Private Physician - When: 1 - 2 days - Reason: Recheck today's complaints, Continuance of care, Re-evaluation by your physician Discharge Instructions: - Discharge Summary Sheet jl9 - Allergies, Adult jl9 - Rash, Adult jl9 Forms: - Medication Reconciliation Form jl9 - Thank You Letter jl9 - Antibiotic Education jl9 - Prescription Opioid Use jl9 Signatures: Dispatcher [employer] Danielle Delgadillo RN RN ap3 Cinthia Rome RN RN bm7 Medhat Boyer jl9
[2021-12-26] MEDS ORDERED: POTASSIUM 25 MEQ EFFERV TAB ONE (12:48)
[2021-12-26 13:30] LABS: Anisocytosis 1+; Blood Morphology Comment NOTED (NOT SEEN); Platelet Estimate ADEQ; Poikilocytosis 1+; White Blood Cell Scan OK (OK)
[2021-12-26 13:47] VITALS: TEMP 97.8
[2021-12-26 13:50] VITALS: BP 140/76; O2SAT 100
== END 2021-12-26 12:48 | disposition home or self-care (01) ==
LOC: ER 10:21
DX: L50.0 Allergic urticaria (principal); I10 Essential (primary) hypertension; Z21 Asymptomatic human immunodeficiency virus [HIV] infection status; Z88.1 Allergy status to other antibiotic agents; Z88.2 Allergy status to sulfonamides; Z88.5 Allergy status to narcotic agent; Z88.8 Allergy status to other drugs, medicaments and biological substances
CPT/HCPCS: 85025; 80048; 36415; 96372; 99283; J1200

== ENCOUNTER 2021-12-28 10:53 | Emergency (ER) | payer OTHER ==
--- OUTSIDE RECORDS SUMMARY | 2021-12-28 11:05 | XMS REPORT | Continuity of Care Document ---
:1955 Author Organization [facility] t Address [address] [place] [address] Care Team Providers Name Role Phone Urmila Rahman Primary Care Physician Mike Lund Attending Clinician Unavailable ELAN LIRA Attending Clinician Unavailable SANTIAGO CARDENAS Attending Clinician Unavailable Bill GUO Attending Clinician Unavailable Bill Rose Attending Clinician [facility] Attending Clinician Unavailable Santiago Sanchez Attending Clinician Beverly Layton MD Attending Clinician Eliseo Arce MD Attending Clinician Carol Ann PACK CHANGER, Sarai Lieberman Attending Clinician [phone] Ashly Pelletier MA Attending Clinician Unavailable Robbi Bal Attending Clinician Monica Rodas MA Attending Clinician Unavailable Agustina Ortiz MA Attending Clinician Unavailable Remigio JENKINS, Kirit Barnes Attending Clinician BEVERLY LAYTON Attending Clinician Unavailable DO PORSHA STREETER Attending Clinician Unavailable Lacey UrmilaKarleneandenis Peterson Admitting Clinician Unavailable Bill GUO Admitting Clinician Unavailable Mike Lund Admitting Clinician Unavailable ELISEO ARCE Admitting Clinician Unavailable DO PORSHA STREETER Admitting Clinician Unavailable Payers Payer Name Policy Type Policy Number Effective Date Expiration Date S [facility] [id number] 2012 STARPLUS OON 00:00:00 EXCEPT [facility] DUAL [id number] 2020 COMP HMO D SNP 00:00:00 MEDICAID OF [place] [id number] 2020 00:00:00 Problems Condition Condition Condition Status Onset Resolution Last Treating Co mments Source Name Details Category Date Date Treatment Clinician Date Gastropare Gastropare Disease Active Overview : Methodi sis sis 4-[address] 00:00: [facility] this [facility] 00 note l might be different from the original. Added automatic ally from request for surgery [id number] Dysphagia Dysphagia Disease Active Overview: Methodi 4-[address] 00:00: g of this [facility]osp[facility] 00 note l might be different from the original. 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 2020-10-15 Memoria PVI PVI 3-30 17:07:00 l ABLATION ABLATION 00:00: Patel n W/ CARTO / W/ CARTO / 00 GA / T GA / T Active 08/19/2020 [facility] Food Food Disease Active 2019-05 Methodi intoleranc [...] ents Source Name Type Date Date Clinician codeine DA Active SV N/V H[facility] 1-25 Clear 00:00: Garcia [facility] sulfamet DA Active SV N/V [facility] hoxazole - Clear 00:00: Garcia [facility] trimetho DA Active SV [facility] prim - Clear 00:00: Garcia [facility] Metoclop Propensi Active [place] ramide ty to 12-12 Health adverse 00:00: reaction 00 s BUTORPHA DRUG Active Unknown-Cmnt Un matt NOL INGREDI 11-25 ity of 00:00: [facility] Butorpha Drug Active Unknown - [...] Date Stop Date Source Natural [facility] Kidney disease [facility] mother [facility] Social History Social Habit Start Date Stop Date Quantity Comments Source History [facility] Health Alcohol Comment History of tobacco Smoker Method ist use Hospital History SDOH [facility] Alcohol Frequency Hospita l History SDOH [facility] Alcohol Std Drinks Hospit al History SDOH [facility] Alcohol Binge Hospital Exposure to 2021-12-02 2021-12-[address] [facility]-CoV-2 (event) 00:00:00 23:54:00 [facility] Alcohol intake 2021-07-14 2021-07-14 Ex-drinker [facility] 00:00:00 00:00:00 (finding) Cigarettes smoked 2020-09-05 2020-09-[address] current (pack per 00:00:00 00:00:00 Hospita l day) - Reported Cigarette 2020-09-05 2020-09-05 Islam pack-years 00:00:00 00:00:00 Hospital Tobacco use and 2020-08-06 2020-08-06 Former smokeless Uni versity of exposure 00:00:00 00:00:00 tobacco user [facility] Tobacco Comment 2015-02-14 2015-02-14 Smokes approx 1-2 Un iversity of 00:00:00 00:00:00 cigarettes per [facility] when she Branch smokes Sex [birth year] At [birth year] [facility] 00:00:00 00:00:00 Smoking Status Start Date Stop Date Source Ex-smoker 2020-08-06 00:00:00 2020-08-06 00:00:00 [facility] Medications Ordered Filled Start Stop Current Ordering Indication Dosage Frequency Signature Comments Components Source Medication Medication Date Date Medication? Clinician (SIG) Name Name methocarbam No 500mg 500 mg, U nivers oL 12-13 Oral, ity of (ROBAXIN) 07:45: 06:35 ONCE, 1 [place] tablet 500 [place] :[place] dose, On Medic al mg [facility] 12/13/21 at 0245, Routine ketorolac No 30mg 30 mg, Unive rs (TORADOL) 12-13 Intramuscu ity of injection 07:45: 06:34 [place], ONCE, [place] 30 mg 00 :00 1 dose, On Medical [facility] 12/13/21 at 0245, JOE naproxen Yes [id number] 500mg Take 1 U nivers (NAPROSYN) 7-24 tablet by ity of 500 mg 00:00: mouth in [place] tablet 00 the Medical morning Branch and 1 tablet in the evening. Take with meals. methocarbam 2021-0 Yes [id number] 500mg Take 1 Univers oL 500 mg 7-24 tablet by ity o f tablet 00:00: mouth 4 [place] 00 (four) Medical times Branch daily. hydralAZINE 2021-0 Yes 25mg Take 25 mg Univers (APRESOLINE 7-01 by mouth ity of ) 25 mg 08:47: daily. [place] tablet 47 Medical Branch hydralAZINE 0 Yes 25mg Take 25 mg Univers (APRESOLINE 7-01 by mouth ity of ) 25 mg 08:47: daily. [place] tablet 47 Medical Branch buPROPion 0 Yes [id number] 150mg Take 1 U nivers XL 4-12 tablet by ity of (WELLBUTRIN 00:00: mouth [place] XL) 150 mg 00 daily. Medical 24 hr Branch tablet busPIRone 2021-0 Yes [id number] 30mg Take 1 Un matt 30 mg 4-12 tablet by ity of tablet 00:00: mouth 2 [place] 00 (two) Medical times Branch daily. SERTraline 2021-0 Yes [id number] 200mg Take 2 Univers 100 mg 4-12 tablets by ity of tablet 00:00: mouth [place] 00 daily. Medical Branch buPROPion 2021-0 Yes [id number] 150mg Take 1 U nivers XL 4-12 tablet by ity of (WELLBUTRIN 00:00: mouth [place] XL) 150 mg 00 daily. Medical 24 hr Branch tablet busPIRone 2021-0 Yes [id number] 30mg Take 1 Un matt 30 mg 4-12 tablet by ity of tablet 00:00: mouth 2 [place] 00 (two) Medical times Branch daily. SERTraline 2021-0 Yes [id number] 200mg Take 2 Univers 100 mg 4-12 tablets by ity of tablet 00:00: mouth [place] 00 daily. Medical Branch raltegravir 2021-0 Yes [id number] 400mg Take 1 Univers (ISENTRESS) 3-28 tablet by ity of 400 mg 00:00: mouth 2 [place] tablet 00 (two) Medical times Branch daily. raltegravir Yes [id number] 400mg Take 1 Univers (ISENTRESS) 3-28 tablet by ity of 400 mg 00:00: mouth 2 [place] tablet 00 (two) Medical times Branch daily. raltegravir Yes [id number] 400mg Take 1 Univers (ISENTRESS) 3-28 tablet by ity of 400 mg 00:00: mouth 2 [place] tablet 00 (two) Medical times Branch daily. LORazepam 1 Yes [id number] 1mg Take 1 Univers mg tablet 3-21 [...] times a tablet day. buPROPion 2021- No [id number] 150mg Take 1 Univers XL -24 -12 tablet by ity of (WELLBUTRIN 00:00: 00:00 [place] XL) 150 mg 00 :00 daily. Medical 24 hr Branch tablet busPIRone 2021- No [id number] 30mg Take 1 U nivers 30 mg -24 04-12 tablet by ity of tablet 00:00: 00:00 mouth 2 [place] 00 :00 (two) Medical times Branch daily. SERTraline 2021- No [id number] 200mg Take 2 Univers 100 mg -24 04-12 tablets by ity of tablet 00:00: 00:00 mouth [place] 00 :00 daily. Medical Branch emtricitabi Yes [id number] Take one Univers ne-tenofovi 1-20 po daily ity of r alafen 00:00: [place] (DESCOVY) 00 Medical tablet Branch emtricitabi Yes [id number] Take one Univers ne-tenofovi 1-20 po daily ity of r alafen 00:00: [place] (DESCOVY) 00 Medical tablet Branch emtricitabi Yes [id number] Take one Univers ne-tenofovi 1-20 po daily ity of r alafen 00:00: [place] (DESCOVY) 00 Medical tablet Branch metoprolol Yes [id number] Take 1 [place] tartrate 7-26 tablet Health (Lopressor) 00:00: (100 mg 100 MG 00 total) by tablet mouth 2 (two) times a day AND 0.5 tablets (50 mg total) every night. metoprolol Yes [id number] Take 1 [place] tartrate 7-26 tablet Health [...] (affected area in groin) hydrALAZINE Yes 50mg Q.[id number] Take 50 mg Methodi (APRESOLINE 7-[id number] mouth [address] ) 50 MG [...] Hospita tablet 25 daily. l nystatin-tr Yes [id number] Apply to [facility] 7- area(s) 3 ity of cream 00:00: (three) [place] 00 times Medical daily. Branch nystatin-tr 2020- Yes [id number] [facility] area(s) 3 ity of cream 00:00: (three) [place] 00 times Medical daily. Branch nystatin-tr Yes [id number] Apply to [facility] 11-25 area(s) 3 ity of cream 00:00: (three) [place] 00 times Medical daily. Branch budesonide- 2020-0 1- No 1{puff} QD Inhale 1 Methodi formoteroL 625 06-[address] (SYMBICORT) 14:37: 00:00 morning. H ospita 160-4.5 02 :00 l mcg/actuati on inhaler hydrALAZINE Yes [id number] 50mg Q.[id number] Take 1 [place] (Apresoline 6-11 [id number] tablet (50 Health ) 50 MG 00:00: 3D mg total) tablet 00 by mouth 3 (three) times a day. hydrALAZINE Yes [id number] 50mg Q.[id number] Take 1 [place] (Apresoline 6-11 [id number] tablet (50 Health ) 50 MG 00:00: 3D mg total) tablet 00 by mouth 3 (three) times a day. Breztri 0 Yes [facility] Aerosphere 6-09 Health 160-9-4.8 00:00: MCG/ACT 00 aerosol Breztri 0 Yes [place] Aerosphere 6-09 Health [...] tablet 00 :00 mupirocin Yes [facility] (Bactroban) 5-28 Health 2 % 00:00: ointment 00 mupirocin 2020-0 Yes [place] (Bactroban) 5-28 Health 2 % 00:00: ointment 00 nystatin 2020- No [id number] Q.25D Take 5 mL Methodi (MYCOSTATIN 10-06 [...] e 4-10 Tablet l 14:00: should not [place] 00 be chewed or crushed. (Same as: [...] ia 4-10 (Same as: l 14:00: Zoloft) [place] 00 Sertraline No Notes: Memor ia 4-10 (Same as: l 14:00: Zoloft) [place] 00 pantoprazol No Notes: Caesar lisa e 4-10 Tablet l 14:00: should not [place] 00 be chewed or crushed. (Same as: Protonix) Amiodarone No Notes: Memor ia 4-10 (Same as: l 14:00: Cordarone) [place] 00 Amlodipine No Notes: Memor ia 4-10 (Same as: l 14:00: Norvasc) [place] 00 emtricitabi No Notes: Caesar lisa ne 200 MG / 4-10 (Same as: l tenofovir 14:00: Descovy) Herm ariel alafenamide 00 Non-formul 25 MG Oral nancy Tablet [Descovy] Sertraline No Notes: Memor ia 4-10 (Same as: l 14:00: Zoloft) [place] 00 pantoprazol No Notes: [place] lisa e 4-10 Tablet l 14:00: should not [place] 00 be chewed or crushed. (Same as: [...] ia 4-10 (Same as: l 14:00: Cordarone) [place] 00 Amlodipine No Notes: Memor ia 4-10 (Same as: l 14:00: Norvasc) [place] emtricitabi No Notes: Caesar lisa ne 200 MG / 4-10 (Same as: l tenofovir 14:00: Descovy) Herm ariel alafenamide 00 Non-formul 25 MG Oral nancy Tablet [Descovy] Sertraline No Notes: Memor ia 4-10 (Same as: l 14:00: Zoloft) [place] 00 pantoprazol No Notes: [place] lisa e 4-10 Tablet l 14:00: should not [place] 00 be chewed or crushed. (Same as: Protonix) Amiodarone No Notes: Memor ia 4-10 (Same as: l 14:00: Cordarone) [place] Amlodipine No Notes: Memor ia 4-10 (Same as: l 14:00: Norvasc) [place] emtricitabi No Notes: Caesar lisa ne 200 MG / 4-10 (Same as: l tenofovir 14:00: Descovy) Herm ariel alafenamide 00 Non-formul 25 MG Oral nancy Tablet [Descovy] Sertraline No Notes: Memor ia 4-10 (Same as: l 14:00: Zoloft) [place] pantoprazol No Notes: [place] lisa e 4-10 Tablet l 14:00: should not [place] 00 be chewed or crushed. (Same as: [...] ia 4-10 (Same as: l 14:00: Zoloft) [place] pantoprazol No Notes: [place] lisa e 4-10 Tablet l 14:00: should not [place] 00 be chewed or crushed. (Same as: Protonix) Amiodarone No Notes: Memor ia 4-10 (Same as: l 14:00: Cordarone) [place] Sucralfate No Notes: May M emoria 4-10 [...] 0.9% 4-10 (Same as: l 02:00: BD [place] 00 Posiflush) Eliquis No Notes: Memoria 4-10 Same as: l 02:00: Eliquis [place] Hydralazine No Notes: Caesar lisa Hydrochlori 4-10 [...] 0.9% 4-10 (Same as: l 02:00: BD [place] Posiflush) Eliquis No Notes: Memoria 4-10 Same as: l 02:00: Eliquis [place] Hydralazine No Notes: Caesar lisa Hydrochlori 4-10 [...] 0.9% 4-10 (Same as: l 02:00: BD [place] Posiflush) Eliquis No Notes: Memoria 4-10 Same as: l 02:00: Eliquis [place] 00 Hydralazine No Notes: Caesar lisa Hydrochlori [...] 0.9% 4-10 (Same as: l 02:00: BD [place] Posiflush) Eliquis No Notes: Memoria 4-10 Same [...] 0.9% 4-10 (Same as: l 02:00: BD [place] Posiflush) Eliquis No Notes: Memoria 4-10 Same as: l 02:00: Eliquis [place] 00 Hydralazine No Notes: Caesar lisa Hydrochlori [...] Memoria 4-10 Same as: l 02:00: Eliquis [place] 00 Hydralazine No Notes: [place] lisa Hydrochlori 4-10 (Same as: l de 50 MG 02:00: Apresoline Her mitchell Oral Tablet 00 ) May interfere w/enteral feedings Take With Food acetaminoph No Notes: Do M emoria en-codeine 4-10 not exceed l #3 00:12: 4gm/day of [place] 00 acetaminop hen. (Same as: Tylenol with Codeine # 3) acetaminoph No Notes: Do M emoria en-codeine 4-10 not exceed l #3 00:12: 4gm/day of [place] acetaminop hen. (Same as: Tylenol with Codeine # 3) acetaminoph No Notes: Do M emoria en-codeine 4-10 not exceed l #3 00:12: 4gm/day of [place] acetaminop hen. (Same as: Tylenol with Codeine # 3) acetaminoph No Notes: Do M emoria en-codeine 4-10 not exceed l #3 00:12: 4gm/day of [place] acetaminop hen. (Same as: Tylenol with Codeine # 3) acetaminoph No Notes: Do M emoria en-codeine 4-10 not exceed l #3 00:12: 4gm/day of [place] acetaminop hen. (Same as: Tylenol with Codeine [...] oria 4-09 tab, l 22:00: Route: PO, [place] Drug form: TAB, BID, Dosing Weight 97.273, [...] oria 4-09 tab, l 22:00: Route: PO, [place] Drug form: TAB, BID, Dosing Weight 97.273, [...] tartrate 4-09 tab, l 22:00: Route: PO, [place] Drug form: TAB, BID, Dosing Weight 97.273, [...] oria 4-09 tab, l 22:00: Route: PO, [place] Drug form: TAB, BID, Dosing Weight 97.273, kg, Start date: 08/29/20 17:00:00 CDT, Duration: 30 day, Stop date: 09/28/20 9:00:00 CDT metoprolol No 100 mg, 1 Me moria tartrate 4- tab, l 22:00: Route: PO, [place] 00 Drug form: TAB, BID, Dosing Weight [...] Notes: Memoria 4-09 (Same l 17:07: as:MORPhin [place] 00 e Sulfate) Morphine No Notes: Memoria 4-09 (Same l 17:07: as:MORPhin [place] 00 e Sulfate) Morphine No Notes: Memoria 4-09 (Same l 17:07: as:MORPhin [place] 00 e Sulfate) Morphine 2020-0 No Notes: [...] 30 tab, 0 coated Refill(s), tablet Pharmacy: [facility] 149, 162.56, cm, 08/29/20 5:30:00 CDT, Height, 97.273, kg, 08/29/20 5:30:00 CDT, Weight pantoprazol 2020-0 Yes 40 mg = 1 M emoria e 40 mg 4-09 tab, PO, l oral 15:27: Daily, # [place] enteric 00 30 tab, 0 coated Refill(s), tablet Pharmacy: [facility] 149, 162.56, cm, 08/29/20 5:30:00 CDT, Height, 97.273, kg, 08/29/20 5:30:00 CDT, Weight pantoprazol 2020-0 Yes 40 mg = 1 M emoria e 40 mg 4-09 tab, PO, l oral 15:27: Daily, # [place] enteric 00 30 tab, 0 coated Refill(s), tablet Pharmacy: [facility] 149, 162.56, cm, 08/29/20 5:30:00 CDT, Height, 97.273, kg, 08/29/20 5:30:00 CDT, Weight pantoprazol 2020-0 Yes 40 mg = 1 M emoria e 40 mg 4-09 tab, PO, l oral 15:27: Daily, # [place] enteric 00 30 tab, 0 coated Refill(s), tablet [facility], 162.56, cm, 08/29/20 5:30:00 CDT, Height, 97.273, kg, 08/29/20 5:30:00 CDT, Weight pantoprazol 1-0 Yes 40 mg = 1 M emoria e 40 mg 4-09 tab, PO, l oral 15:27: Daily, # [place] enteric 00 30 tab, 0 coated Refill(s), tablet [facility], 162.56, cm, 08/29/20 5:30:00 CDT, Height, 97.273, kg, 08/29/20 5:30:00 CDT, Weight pantoprazol 1-0 Yes 40 mg = 1 M emoria e 40 mg 4-09 tab, PO, l oral 15:27: Daily, # [place] enteric 00 30 tab, 0 coated Refill(s), tablet [facility], 162.56, cm, 08/29/20 5:30:00 CDT, Height, 97.273, kg, 08/29/20 5:30:00 CDT, Weight pantoprazol 1-0 Yes 40 mg = 1 M emoria e 40 mg 4-09 tab, PO, l oral 15:27: Daily, # [place] enteric 00 30 tab, 0 coated Refill(s), tablet [facility], 162.56, cm, 08/29/20 5:30:00 CDT, Height, 97.273, kg, 08/29/20 5:30:00 CDT, Weight pantoprazol 1-0 No 40 mg = 1 M emoria e 40 mg 4-09 tab, PO, l oral 15:26: Daily, # [place] enteric 00 30 tab, 0 coated Refill(s) tablet sucralfate 2020-0 Yes 1 gm = 1 Mem oria 1 g oral 4-09 tab, PO, l tablet 15:26: Q12H, # 28 Skylar nn 00 tab, 0 Refill(s), [facility], 162.56, cm, 08/29/20 5:30:00 CDT, Height, [...] 00 tab, 0 Refill(s), Pharmacy: [place] [address], 162.56, cm, 08/29/20 5:30:00 CDT, Height, 97.273, kg, 08/29/20 5:30:00 CDT, Weight pantoprazol 2020-0 No 40 mg = 1 M emoria e 40 mg 4-09 tab, PO, l oral 15:26: Daily, # [place] enteric 00 30 tab, 0 coated Refill(s) tablet sucralfate 2020-0 Yes 1 gm = 1 Mem oria 1 g oral 4-09 tab, PO, l tablet 15:26: Q12H, # 28 Skylar nn 00 tab, 0 Refill(s), Pharmacy: [place] [address], 162.56, cm, 08/29/20 5:30:00 CDT, Height, 97.273, [...] Skylar nn 00 tab, 0 Refill(s), Pharmacy: [facility] 149, 162.56, cm, 08/29/20 5:30:00 CDT, Height, 97.273, kg, 08/29/20 5:30:00 CDT, Weight pantoprazol 2020-0 No 40 mg = 1 M emoria e 40 mg 4-09 tab, PO, l oral 15:26: Daily, # [place] enteric 00 30 tab, 0 coated Refill(s) tablet sucralfate Yes 1 gm = 1 Mem oria 1 g oral 4-09 tab, PO, l tablet 15:26: Q12H, # 28 Skyl[place] nn 00 tab, 0 Refill(s), Pharmacy: [facility] 149, 162.56, cm, 08/29/20 5:30:00 CDT, Height, 97.273, kg, 08/29/20 5:30:00 CDT, Weight pantoprazol No 40 mg = 1 M emoria e 40 mg 4-09 tab, PO, l oral 15:26: Daily, # [place] enteric 00 30 tab, 0 coated Refill(s) tablet sucralfate Yes 1 gm = 1 Mem oria 1 g oral 4-09 tab, PO, l tablet 15:26: Q12H, # 28 Skylar nn 00 tab, 0 Refill(s), Pharmacy: [facility] 149, 162.56, cm, 08/29/20 5:30:00 CDT, Height, 97.273, kg, 08/29/20 5:30:00 CDT, Weight pantoprazol No 40 mg = 1 M emoria e 40 mg 4-09 tab, PO, l oral 15:26: Daily, # [place] enteric 00 30 tab, 0 coated Refill(s) tablet sucralfate Yes 1 gm = 1 Mem oria 1 g oral 4-09 tab, PO, l tablet 15:26: Q12H, # 28 Skylar nn 00 tab, 0 Refill(s), Pharmacy: [facility] 149, 162.56, cm, 08/29/20 5:30:00 CDT, Height, 97.273, kg, 08/29/20 5:30:00 CDT, Weight Saline No Notes: Memoria Flush 0.9% 08-29 (Same as: l 15:25: BD [place] 00 Posiflush) Lorazepam No Notes: Memori a - (Same as: l 15:25: Ativan) [place] 00 Saline No Notes: Memoria Flush 0.9% 4-09 (Same as: l 15:25: BD [place] 00 Posiflush) Lorazepam No Notes: Memori a 4-09 (Same as: l 15:25: Ativan) [place] Saline No Notes: Memoria Flush 0.9% 4-09 (Same as: l 15:25: BD [place] 00 Posiflush) Saline No Notes: Memoria Flush 0.9% 4-09 (Same as: l 15:25: BD [place] 00 Posiflush) Lorazepam No Notes: Memori a 4-09 (Same as: l 15:25: Ativan) [place] 00 Lorazepam No Notes: Memori a 4-09 (Same as: l 15:25: Ativan) [place] 00 Saline No Notes: Memoria Flush 0.9% [...] Drug form: l mg + 15:00: INJ, [place] Dosing Weight 97.3, kg, Start date: 08/29/20 [...] Drug form: l mg + 15:00: INJ, [place] 00 Dosing Weight 97.3, kg, Start date: 08/29/20 10:00:00 CDT, Stop date: 08/29/20 11:00:00 CDT Isuprel HCl 2020-0 No Route: IV, Memoria (ANES) 0.2 08-29 Drug form: l mg + 15:00: INJ, [place] 00 Dosing Weight 97.3, kg, Start date: [...] ONCE, Stop date: 08/29/20 9:18:00 CDT Flumazenil 2021-0 No 0.2 mg, Caesar lisa 08-29 Route: l 14:01: IVP, PRN, [place] 00 Dosing Weight 97.273, kg, PRN Benzodiaze pine Reversal, Initial dose, Start date: 08/29/20 9:01:00 CDT, Duration: 30 day, Stop date: 09/28/20 9:00:00 CDT Naloxone 2021-0 No 0.4 mg, Memori a 08-29 Route: l 14:01: IVP, [place] 00 Q2MIN, Dosing Weight 97.273, kg, PRN [...] oria ne 08-29 Route: l 14:01: IVP, [place] 00 Q5Min, Dosing Weight 97.273, kg, PRN [...] Memori a 08-29 Route: l 14:01: IVP, [place] 00 Q2MIN, Dosing Weight 97.273, kg, PRN [...] 08-29 Route: PO, l 14:01: Drug form: [place] 00 TAB, ONCE, Dosing Weight 97.273, kg, [...] oria ne 08-29 Route: l 14:01: IVP, [place] 00 Q5Min, Dosing Weight 97.273, kg, PRN Pain Score 7-10, Start date: 08/29/20 9:01:00 CDT, Duration: 4 doses or times, Stop date: Limited # of times Flumazenil 1-0 No 0.2 mg, Caesar lisa 08-29 Route: l 14:01: IVP, PRN, [place] 00 Dosing Weight 97.273, kg, PRN Benzodiaze pine Reversal, Initial dose, Start date: 08/29/20 9:01:00 CDT, Duration: 30 day, Stop date: 09/28/20 9:00:00 CDT Naloxone 1-0 No 0.4 mg, Memori a 08-29 Route: l 14:01: IVP, [place] 00 Q2MIN, Dosing Weight 97.273, kg, PRN [...] lisa 08-29 Route: l 14:01: IVP, PRN, [place] 00 Dosing Weight 97.273, kg, PRN Benzodiaze [...] ia 08-29 Route: l 14:01: IVP, ONCE, [place] 00 Dosing Weight 97.273, kg, PRN Nausea [...] oria ne 08-29 Route: l 14:01: IVP, [place] 00 Q5Min, Dosing Weight 97.273, kg, PRN [...] Memori a 08-29 Route: l 14:01: IVP, [place] 00 Q2MIN, Dosing Weight 97.273, kg, PRN Narcotic Reversal, Start date: 08/29/20 9:01:00 CDT, Duration: 8 doses or times, Stop date: Limited # of times Flumazenil 2021-0 No 0.2 mg, Caesar lisa 08-29 Route: l 14:01: IVP, PRN, [place] 00 Dosing Weight 97.273, kg, PRN Benzodiaze pine Reversal, Initial dose, Start date: 08/29/20 9:01:00 CDT, Duration: 30 day, Stop date: 09/28/20 9:00:00 CDT Ondansetron 2021-0 No 4 mg, Memor ia 08-29 Route: l 14:01: IVP, ONCE, [place] 00 Dosing Weight 97.273, kg, PRN Nausea & Vomiting, Start date: 08/29/20 9:01:00 CDT Naloxone 2021-0 No 0.4 mg, Memori a 08-29 Route: l 14:01: IVP, [place] 00 Q2MIN, Dosing Weight 97.273, kg, PRN [...] Memori a 08-29 Route: l 14:01: IVP, [place] 00 Q5Min, Dosing Weight 97.273, kg, PRN [...] oria ne 08-29 Route: l 14:01: IVP, [place] 00 Q5Min, Dosing Weight 97.273, kg, PRN [...] ia 08-29 Route: l 14:01: IVP, ONCE, [place] Dosing Weight 97.273, kg, PRN Nausea & [...] Stop date: Limited # of times lidocaine 2020-0 No Route: IV, Me moria [...] 08-29 Drug form: l 13:42: INJ, ONCE, [place] Stop date: 08/29/20 8:42:00 CDT fentaNYL 2020-0 No Route: IV, Mem oria (ANES) 08-29 Drug form: l 13:42: INJ, ONCE, [place] Stop date: 08/29/20 8:42:00 CDT fentaNYL 2020-0 No Route: IV, Mem oria (ANES) 08-29 Drug form: l 13:42: INJ, ONCE, [place] Stop date: 08/29/20 8:42:00 CDT norepinephr 2020-0 [...] Drug form: l 10 13:15: INJ, Start [place] microgram 00 date: 08/29/20 8:15:00 CDT, Stop date: 08/29/20 9:15:00 CDT norepinephr 2020-0 No Route: IV, Memoria ine (ANES) 08-29 Drug form: l 10 13:15: INJ, Start [place] microgram date: 08/29/20 8:15:00 CDT, Stop date: 08/29/20 9:15:00 CDT norepinephr 2020-0 No Route: IV, Memoria ine (ANES) 08-29 Drug form: l 10 13:15: INJ, Start [place] microgram date: 08/29/20 8:15:00 CDT, Stop date: 08/29/20 9:15:00 CDT Sodium 1-0 No Route: IV, Memor ia Chloride 4-09 Total l 0.9% IV 12:30: Volume: [place] (ANES) 1000 00 1,000, mL Start date: 08/29/20 7:30:00 CDT, Stop date: 08/29/20 8:30:00 CDT Sodium 202-0 No Route: IV, Memor ia Chloride 4-09 Total l 0.9% IV 12:30: Volume: [place] (ANES) 1000 00 1,000, mL Start date: [...] 4-09 Total l 0.9% IV 12:30: Volume: [place] (ANES) 1000 00 1,000, mL Start date: 08/29/20 7:30:00 CDT, Stop date: 08/29/20 8:30:00 CDT Sodium 2021-0 No Route: IV, [facility] Chloride 4-09 Total l 0.9% IV 12:30: Volume: [place] (ANES) 1000 00 1,000, mL Start date: 08/29/20 7:30:00 CDT, Stop date: 08/29/20 8:30:00 CDT Sodium 1-0 No Route: IV, [facility] Chloride 4-09 Total l 0.9% IV 12:30: Volume: [place] (ANES) 1000 00 1,000, mL Start date: [...] PO, l Hydrochlori 11:42: Q24H, # 30 [place] de 150 MG 00 tab, 0 Extended Refill(s) Release Tablet 24 HR Yes 150 mg = 1 [facility] Bupropion 4-09 tab, PO, l Hydrochlori 11:42: Q24H, # 30 [place] de 150 MG 00 tab, 0 Extended Refill(s) Release Tablet 24 HR Yes 150 mg = 1 [facility] a Bupropion - tab, PO, l Hydrochlori 11:42: Q24H, # 30 [place] de 150 MG 00 tab, 0 Extended Refill(s) Release Tablet 24 HR Yes 150 mg = 1 [facility] Bupropion -09 tab, PO, l Hydrochlori 11:42: Q24H, # 30 [place] de 150 MG 00 tab, 0 Extended [...] 4- Q12H, tab, l Tablet 11:41: 0 [place] [Eliquis] 00 Refill(s), For Atrial Fibrilatio n apixaban 0 Yes 5 mg, PO, Me moria MG Oral 4- Q12H, tab, l Tablet 11:41: 0 Marty [Eliquis] 00 Refill(s), For Atrial Fibrilatio n apixaban 5 2020-0 Yes 5 mg, PO, Me moria MG Oral 4-09 Q12H, tab, l Tablet 11:41: 0 [place] [Eliquis] 00 Refill(s), For Atrial Fibrilatio n apixaban 5 2020-0 Yes 5 mg, PO, Me moria MG Oral 4-09 Q12H, tab, l Tablet 11:41: 0 Marty [Eliquis] 00 Refill(s), For Atrial Fibrilatio n apixaban 5 2020-0 Yes 5 mg, PO, Me moria MG Oral 4- Q12H, tab, l Tablet 11:41: 0 [place] [Eliquis] 00 Refill(s), For Atrial Fibrilatio n apixaban 5 2020-0 Yes 5 mg, PO, Me moria MG Oral 4- Q12H, tab, l Tablet 11:41: 0 Marty [Eliquis] 00 Refill(s), For Atrial Fibrilatio n apixaban 5 2020-0 Yes 5 mg, PO, Me moria MG Oral 4-09 Q12H, tab, l Tablet 11:41: 0 [place] [Eliquis] 00 Refill(s), For Atrial Fibrilatio n [...] Marty 00 90 tab, 3 Refill(s) AMIODarone 2021-0 Yes 200 mg = 1 M emoria 200 mg oral 4-09 tab, PO, l tablet 11:38: Daily, # Maryt 00 90 tab, 3 Refill(s) AMIODarone 0 Yes 200 mg = 1 M emoria 200 mg oral 4-09 tab, PO, l tablet 11:38: Daily, # Marty 00 90 tab, 3 Refill(s) AMIODarone 0 Yes 200 mg = 1 M emoria 200 mg oral 4-09 tab, PO, l tablet 11:38: Daily, # [place] 00 90 tab, 3 Refill(s) normal 0 [...] l Eliquis 5 Yes Methodi mg tablet 3- st 00:00: [facility]osp[facility] 00 l apixaban Yes [...] capsule 41 times Medical daily. Branch lisinopril 2019-05 Yes 40mg Take 40 [...] daily. [place] tablet 41 Medical Branch albuterol 0 Yes Univers 90 [...] Immunizations Ordered Filled Immunization Date Status Comments [facility] e Immunization Name Name PFIZER COVID-19 2020-07-23 Completed Islam MRNA VACCINATION 00:00:00 [facility] PFIZER COVID-19 2020-07-02 Completed Islam MRNA VACCINATION 00:00:00 [facility] Influenza Virus 2017-03-08 Completed Universit y of Vaccine 00:00:00 [facility] Influenza Virus 2017-03-08 Completed Universit y of Vaccine 00:00:00 [facility] Influenza Virus 2017-03-08 Completed Universit y of Vaccine 00:00:00 [facility] Influenza Virus 2014-01-30 Completed Universit y of Vaccine (3+ yrs) 00:00:00 [facility] dical Branch Pneumococcal 13 2014-01-30 Completed Universit y of Conjugate, PCV13 00:00:00 [facility] dical (Prevnar 13) Branch Influenza Virus 2014-01-30 Completed Universit y of Vaccine (3+ yrs) 00:00:00 [facility] dical Branch Pneumococcal 13 2014-01-30 Completed Universit y of Conjugate, PCV13 00:00:00 [facility] dical (Prevnar 13) Branch Influenza Virus 2014-01-30 Completed Universit y of Vaccine (3+ yrs) 00:00:00 [facility] dical Branch Pneumococcal 13 2014-01-30 Completed Universit y of Conjugate, PCV13 00:00:00 [facility] dical (Prevnar 13) Branch Pneumococcal 2012-02-16 Completed University o f Polysaccharide, 00:00:00 [place] [facility] PPSV23 (PNEUMOVAX) Branch Influenza Virus 2012-02-16 Completed Universit y of Vaccine 00:00:00 [facility] PPD (TB) 2012-02-16 Completed University of 00:00:00 [facility] Pneumococcal 2012-02-16 Completed University o f Polysaccharide, 00:00:00 [facility] ical PPSV23 (PNEUMOVAX) Branch Influenza Virus 2012-02-16 Completed Universit y of Vaccine 00:00:00 [facility] PPD (TB) 2012-02-16 Completed University of 00:00:00 [facility] Pneumococcal 2012-02-16 Completed University o f Polysaccharide, 00:00:00 [facility] ical PPSV23 (PNEUMOVAX) Branch Influenza Virus 2012-02-16 Completed Universit y of Vaccine 00:00:00 [facility] PPD (TB) 2012-02-16 Completed University of 00:00:00 [facility] Hep B, Adol or Pedi 2011-09-01 Completed Unive rsity of Dosage 00:00:00 [facility] Hep B, Adol or Pedi 2011-09-01 Completed Unive rsity of Dosage 00:00:00 [facility] Hep B, Adol or Pedi 2011-09-01 Completed Unive rsity of Dosage 00:00:00 [facility] Hep B, Adol or Pedi 2011-03-17 Completed Unive rsity of Dosage 00:00:00 [facility] Hep B, Adol or Pedi 2011-03-17 Completed Unive rsity of Dosage 00:00:00 [facility] Hep B, Adol or Pedi 2011-03-17 Completed Unive rsity of Dosage 00:00:00 [facility] Influenza Virus 2011-02-10 Completed Universit y of Vaccine 00:00:00 [facility] Hep B, Adol or Pedi 2011-02-10 Completed Unive rsity of Dosage 00:00:00 [facility] Influenza Virus 2011-02-10 Completed Universit y of Vaccine 00:00:00 [facility] Hep B, Adol or Pedi 2011-02-10 Completed Unive rsity of Dosage 00:00:00 [facility] Influenza Virus 2011-02-10 Completed Universit y of Vaccine 00:00:00 [facility] Hep B, Adol or Pedi 2011-02-10 Completed Unive rsity of Dosage 00:00:00 [facility] PPD (TB) 2010-11-18 Completed University of 00:00:00 [facility] TDAP (ADACEL) 2010-11-18 Completed University of VACCINE 00:00:00 [facility] PPD (TB) 2010-11-18 Completed University of 00:00:00 [facility] TDAP (ADACEL) 2010-11-18 Completed University of VACCINE 00:00:00 [facility] PPD (TB) 2010-11-18 Completed University of 00:00:00 [facility] TDAP (ADACEL) 2010-11-18 Completed University of VACCINE 00:00:00 [facility] HEPATITIS A 2004-03-02 Completed University of 00:00:00 [facility] HEPATITIS A 2004-03-02 Completed University of 00:00:00 [facility] HEPATITIS A 2004-03-02 Completed University of 00:00:00 [facility] HEPATITIS A 2003-08-01 Completed University of 00:00:00 [facility] HEPATITIS A 2003-08-01 Completed University of 00:00:00 [facility] HEPATITIS A 2003-08-01 Completed University of 00:00:00 [facility] Pneumococcal 2001-10-04 Completed University o f Polysaccharide, 00:00:00 [place] [facility] PPSV23 (PNEUMOVAX) Branch PPD (TB) 2001-10-04 Completed University of 00:00:00 [facility] Pneumococcal 2001-10-04 Completed University o f Polysaccharide, 00:00:00 [place] [facility] PPSV23 (PNEUMOVAX) Branch PPD (TB) 2001-10-04 Completed University of 00:00:00 [place] [facility] Pneumococcal 2001-10-04 Completed [facility] o f [facility], 00:00:00 [place] [facility] ical PPSV23 (PNEUMOVAX) Branch PPD (TB) 2001-10-04 Completed University of 00:00:00 [facility] Vital Signs Vital Name Observation Time Observation Value Comments Source Systolic blood 2021-12-13 06:39:53 170 mm[Hg] Univer sity of pressure [facility] Diastolic blood 2021-12-13 06:39:53 96 mm[Hg] Unive rsity of pressure [facility] Heart rate 2021-12-13 06:39:53 60 /min Universi ty of [facility] Respiratory rate 2021-12-13 06:39:53 18 /[facility] in 2021-12-13 06:39:53 98 /min [facility] Arterial blood by [facility] Pulse oximetry Branch Body temperature 2021-12-13 04:57:00 36.56 Amina Univ ersity of [facility] Body height 2021-12-13 04:57:00 162.6 cm Universi ty of [facility] Body weight 2021-12-13 04:57:00 90.719 kg Universi ty of [facility] BMI 2021-12-13 04:57:00 34.33 kg/m2 Universi ty [facility] Systolic blood 2021-08-21 13:13:00 191 mm[Hg] Univer sity of pressure [facility] Diastolic blood 2021-08-21 13:13:00 99 mm[Hg] Unive rsity of pressure [facility] Heart rate 2021-08-21 13:13:00 52 /min Universi ty of [facility] Body temperature 2021-08-21 13:11:00 36.5 Amina Univ ersity of [facility] Respiratory rate 2021-08-21 13:11:00 16 /min Univ ersity of [facility] Body height 2021-08-21 13:11:00 162.6 cm Universi ty of [facility] Body weight 2021-08-21 13:11:00 93.759 kg Universi ty of [facility] BMI 2021-08-21 13:11:00 35.48 kg/m2 Universi ty [facility] [place] [facility] Oxygen saturation in 2021-08-21 13:11:00 95 /min University Arterial blood by [facility] Pulse oximetry Branch Systolic blood 2021-07-14 15:18:00 142 [facility]Hg[facility] Diastolic blood 2021-07-14 15:18:00 76 mm[facility]Hg[facility] Heart rate 2021-07-14 15:18:00 61 [facility] Body height 2021-07-14 15:18:00 [facility] 2021-07-14 15:18:00 94.802 [facility] BMI 2021-07-14 15:18:00 35.87 kg/m2 [facility] Systolic blood 2020-12-08 15:48:00 125 mm[Hg] Method [facility] pressure Diastolic blood 2020-12-08 15:48:00 76 mm[Hg] [facility] pressure Heart rate 2020-12-08 15:48:00 64 /min [facility] Body temperature 2020-12-08 15:48:00 36.61 Amina [facility] Respiratory rate 2020-12-08 15:48:00 17 /min [facility] Body height 2020-12-08 15:48:00 162.6 cm [facility] Body weight 2020-12-08 15:48:00 98.884 kg [facility] BMI 2020-12-08 15:48:00 37.42 kg/m2 [facility] Oxygen saturation in 2020-12-08 15:48:00 97 /min [facility] Arterial blood by Pulse oximetry Respitory Rate 2020-08-30 13:00:00 Memori al [facility] Systolic (mm Hg) 2020-08-30 13:00:00 Caesar rial [place] Diastolic (mm Hg) 2020-08-30 13:00:00 Mem orial [place] Systolic (mm Hg) 2020-08-30 11:00:00 Caesar rial [place] Diastolic (mm Hg) 2020-08-30 11:00:00 Mem orial [facility] Temperature Oral (F) 2020-08-30 11:00:00 98.4 F [facility] Respitory Rate 2020-08-30 11:00:00 Darien andre [place] Respitory Rate 2020-08-30 10:00:00 Katieraymond andre [place] Systolic (mm Hg) 2020-08-30 10:00:00 Caesar cheung [place] Diastolic (mm Hg) 2020-08-30 10:00:00 Mem orial [place] Temperature Oral (F) 2020-08-30 00:00:00 96.9 F [facility] Temperature Oral (F) 2020-08-29 11:26:00 97.6 F [facility] Height 2020-08-29 10:30:00 162.56 cm Claude [facility] Weight 2020-08-29 10:30:00 [facility] BMI Calculated 2020-08-29 10:30:00 Darien al [place] Procedures Procedure Date / Time Performing Clinician Source Performed CT CERVICAL SPINE WO 2021-12-13 05:48:16 Bill Guo [facility] CONTRAST [facility] CT HEAD WO CONTRAST 2021-12-13 05:48:16 Bill Guo [facility] CT LUMBAR SPINE WO 2021-12-13 05:48:16 Bill Guo [facility] CONTRAST [facility] CT THORACIC SPINE WO 2021-12-13 05:48:16 Bill Guo [facility] CONTRAST [facility] ECG 12-LEAD 2021-07-14 15:14:00 [facility] [id number] 2021-06-17 00:00:00 RASSA [facility] [place] GASTROINTESTINAL PANEL 2020-12-08 22:21:00 Eliseo Arce [facility] XR ABDOMEN 1 VW 2020-12-08 18:06:32 Eliseo Arce spital [place] < 1 HOUR 2020-09-05 22:39:00 Eliseo Arce spital SURGICAL PATHOLOGY REQUEST 2020-09-05 21:54:00 Eliseo Arce [facility] XR CHEST 1 VW PORTABLE 2020-09-05 19:55:00 Eliseo Arce [facility] DISCHARGE PATIENT 2020-09-05 17:27:55 Lucas Harris [facility] MO AN ELECTIVE 2020-09-05 16:47:23 Kirit Flood [facility] ENDOTRACHEAL AIRWAY EGD, INTRAOPERATIVE 2020-09-05 16:27:00 [facility]IN 2020-09-05 15:04:00 Sarai Maharaj [facility] TIME (PTT) M. PROTHROMBIN TIME WITH INR 2020-09-05 15:04:00 Mindy [facility] Plan of Care Planned Activity Planned Date Details Comments Source Future Scheduled 2021-08-26 Screening for [facility] Test 13:02:23 malignant neoplasm of cervix (procedure) [code = 668644039] Future Scheduled 2021-08-26 BREAST CANCER [facility] Test 13:02:23 SCREENING [code = BREAST CANCER SCREENING] Future Scheduled 2021-08-[address] [facility] Test 13:02:23 [code = COLONOSCOPY SCREENING] Future Scheduled 2021-08-26 Screening for [facility] Test 13:02:23 malignant neoplasm of lung (procedure) [code = [id number]] Future Scheduled 2021-08-26 SHINGLES VACCINES (#1) [facility] Test 13:02:23 [code = SHINGLES VACCINES (#1)] Future Scheduled 2021-08-26 COVID-19 VACCINE (3 - [facility] Test 13:02:23 Pfizer risk 4-dose series) [code = COVID-19 VACCINE (3 - Pfizer risk 4-dose series)] Future Scheduled 2021-08-26 65+ PNEUMOCOCCAL [facility] Test 13:02:23 VACCINE (4 of 4 - PPSV23) [code = 65+ PNEUMOCOCCAL VACCINE (4 of 4 - PPSV23)] Future Scheduled 2021-08-26 INFLUENZA VACCINE [facility] Test 13:02:23 [code = INFLUENZA VACCINE] Encounters Start End Encounter Admission Attending Care Care Encounter Source Date/Time Date/Time Type Type Clinicians Facility Department ID 2021-11-16 Outpatient [facility] [id number] [place] 10:32:47 [id number] [facility] 2021-08-03 Inpatient WINTER Lund [facility] [id number] [facility] 11:30:00 Mike [id number] [facility] 2021-07-14 Outpatient JENNY [facility] [id number] [place] 09:33:51 [employer], [facility]ated [facility] 2021-06-16 Inpatient WINTER Leal OUTD [id number] [facility] 08:30:00 Mike [id number] [facility] 2021-06-15 Inpatient WINTER Leal OUTD [id number] [facility] 10:30:00 Mike [id number] [facility] 2022-02-26 2022-02-26 Outpatient [facility] [id number] Univers 08:30:00 08:30:00 SANTIAGO [id number] [facility] 2022-02-26 2022-02-26 Outpatient [facility] [id number] Univers 08:30:00 08:30:00 SANTIAGO [facility] 2021-12-12 2021-12-13 Emergency X Bill GUO [facility] ERT [id number] Univers 23:53:00 [facility]:52[facility] 2021-12-12 2021-12-13 Emergency Bill Guo [facility] [id number] Univers 23:53:00 01:52:00 Kiersten BRITTON 350.1.13.10 i ty [facility] 4.2.7.2.686 [facility] [id number] 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 [id number] [facility] 316 Branch 2021-11-20 2021-11-20 Outpatient [facility] [id number] Univers 09:45:00 09:45:00 SANTIAGO [facility] 2021-11-20 2021-11-20 Outpatient [facility] [id number] Univers 09:45:00 09:45:00 [id number] [facility] 2021-08-21 2021-08-21 Office [facility] [id number] [facility] 08:30:00 09:00:00 Visit Santiago Rodriguez [facility] [id number] i [facility] 4.2.7.2.[id number] [facility] 089 Branch 2021-08-05 2021-08-05 Outpatient WINTER Leal HCACL [id number] [facility] 05:24:00 05:24:00 Mike 31 [facility] 2021-08-05 2021-08-05 Outpatient WINTER Leal [facility] [id number] [facility] 05:24:00 05:24:00 Mike [id number] [facility] 2021-07-14 2021-07-14 Office KIMBERLEY Lira 6400 1.2.840.114 [id number] [place] 08:45:00 09:34:[address] 350.1.13.58 Health 9.2.7.2.686 [id number] 1 2021-07-09 2021-07-09 Telephone KIMBERLEY Layton 6400 1.2.840.114 [id number] [place] 00:00:00 00:00:[address] 350.1.13.58 Health 9.2.7.2.686 [id number] 1 2021-06-17 2021-06-17 Inpatient EDUARDO LealCL INTE.02 [id number] [facility] 10:56:00 14:36:00 Mike [id number] [facility] 2021-06-17 2021-06-17 Inpatient EDUARDO LealCL INTE.02 [id number] [facility] 10:56:00 14:36:00 Mike 47 [facility] 2021-04-28 2021-04-28 Telephone Jailyn 1.2.840.0 [id number] Methodi 00:00:00 00:00:[address] 3.430.2.7 Hospit a .3.215086 l .8 2021-03-31 2021-03-31 Orders Carol Ann 1.2.840.1 [id number] Methodi 00:00:00 00:00:00 Only Sarai Lieberman 27513.1.1 979 s t 3.430.2.7 Hospit a .3.755918 l .8 2021-03-24 2021-03-24 Telephone Jailyn, 1.2.840.7 [id number] Methodi 00:00:00 00:00:[address] 3.430.2.7 Hospit a .3.475402 l .8 2021-01-19 2021-01-19 Telephone Prabhu, 1.2.840.1 [id number] Methodi 00:00:00 00:00:[address] 3.430.2.7 Hospit a .3.189144 l .8 2020-12-12 2020-12-12 Office Hematpour, [facility] 6400 1.2.840.114 [id number] 07:42:02 08:18:[address] 350.1.13.58 9.2.7.2.686 [id number] 1 2020-12-09 2020-12-09 Telephone Carol Ann, 1.2.840.1 [id number] Methodi 00:00:00 00:00:00 Sarai Lieberman 84468.1.1 316 s t 3.430.2.7 Hospit a .3.265578 l .8 2020-12-08 2020-12-08 [facility], 1.2.840.1 [id number] [id number] Methodi 12:35:54 23:59:00 Encounter Ray 76358.1.[address] 3.430.2.7 Hospit a .3.124376 l .8 2020-12-08 2020-12-08 [facility], 1.2.840.1 [id number] [id number] Methodi 17:25:00 17:30:[address] 3.430.2.7 Hospit a .3.657968 l .8 2020-12-08 2020-12-08 Office Jailyn, 1.2.840.1 [id number] Methodi 10:30:00 11:39:56 Visit Ray 52689.1.[address] 3.430.2.7 Hospit a .3.657483 l .8 2020-12-08 2020-12-08 Travel 1.2.840.1 1.2.835.062 [id number] [id number] Methodi 00:00:00 00:00:[address] 3.430.2.7 0.2.7.3.698 Ho spita .3.473874 084.8 l .8 2020-12-02 2020-12-02 Enterprise Project Manager [facility] 1.2.840.114 [id number] 10:20:06 10:36:19 Visit HEALTH 350.1.13.10 CLINICS 4.2.7.2.686 [id number] [facility] 2020-11-25 2020-11-25 Office [facility] 1.2.840.114 [id number] 11:06:30 11:58:14 Visit Robbi R 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 350.1.13.10 [facility] 4.2.7.2.686 MATERNAL [id number] & CHILD 107 [facility] 2020-11-25 2020-11-25 [facility] 1.2.007.589 [id number] 00:00:00 00:00:00 [facility] 350.1.13.10 CLINICS 4.2.7.2.686 [id number] 089 2020-11-25 2020-11-25 Telephone [facility] [id number] [id number] 00:00:00 00:00:00 Rossandynda R 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 350.1.13.10 [facility] 4.2.7.2.686 MATERNAL [id number] & CHILD 107 [facility] 2020-11-14 2020-11-14 Abstract Clark, 1.2.840.1 [id number] [id number] Methodi 00:00:00 00:00:[address] 3.430.2.7 Hospit a .3.935304 l .8 2020-11-14 2020-11-14 Telephone Rodas, 1.2.840.1 [id number] 2099 [id number] Methodi 00:00:00 00:00:[address] 3.430.2.7 Hospit a .3.454014 l .8 2020-11-07 2020-11-07 Telephone Diana, [facility] 6400 1.2.840.114 [id number] 00:00:00 00:00:[address] 350.1.13.58 9.2.7.2.686 [id number] 1 2020-10-27 2020-10-27 Telephone Jailyn, 1.2.840.5 [id number] Methodi 00:00:00 00:00:[address] 3.430.2.7 Hospit a .3.855019 l .8 2020-10-24 2020-10-24 Telephone Rodas, 1.2.840.1 [id number] Methodi 00:00:00 00:00:[address] 3.430.2.7 Hospit a .3.922135 l .8 2020-10-06 2020-10-12 [facility] 1.2.840.1 [id number] Methodi 15:30:00 00:08:46 ne Ray 06881.1.[address] 3.430.2.7 Hospit a .3.545313 l .8 2020-09-30 2020-09-30 Telephone Jailyn, 1.2.840.0 [id number] Methodi 00:00:00 00:00:[address] 3.430.2.7 Hospit a .3.054650 l .8 2020-09-21 2020-09-21 Travel 1.2.840.1 1.2.363.994 [id number] [id number] Methodi 00:00:00 00:00:[address] 3.430.2.7 0.2.7.3.698 Ho spita .3.178965 084.8 l .8 2020-09-06 2020-09-06 [facility] 1.2.840.1 [id number] Methodi 17:42:30 23:59:[address] 3.430.2.7 Hospit a .3.650188 l .8 2020-09-06 2020-09-06 [facility], 1.2.840.1 [id number] [id number] Methodi 16:50:00 17:41:00 Encounter Ray [address]50.1.[address] 3.430.2.7 Hospit a .3.162085 l .8 2020-09-05 2020-09-05 [facility], 1.2.840.1 [id number] Methodi 09:17:00 19:45:00 Encounter Ray [address]709.1.[address] 3.430.2.7 Hospit a .3.338950 l .8 2020-09-05 2020-09-05 Surgery [facility], 1.2.840.1 [id number] Methodi 11:30:00 13:15:[address] 3.430.2.7 Hospit a .3.851749 l .8 2020-09-05 2020-09-05 Anesthesia [facility], 1.2.840.1 [id number] Methodi 11:27:00 12:20:00 Event Johnathanthi 51054.1.1 243 s t V. 3.430.2.7 Hospit a .3.435966 l .8 2020-09-05 2020-09-05 Travel 1.2.840.1 1.2.738.216 [id number] Methodi 00:00:00 00:00:[address] 3.430.2.7 0.2.7.3.698 Ho spita .3.575756 084.8 l .8 2020-09-04 2020-09-04 Telephone [place], 1.2.840.1 [id number] Methodi 00:00:00 00:00:00 Sarai Lieberman 89847.1.1 762 s t 3.430.2.7 Hospit a .3.825610 l .8 2020-09-02 2020-09-02 Telephone [place], 1.2.840.7 [id number] Methodi 00:00:00 00:00:00 Sarai Lieberman 08020.1.1 344 s t 3.430.2.7 Hospit a .3.878061 l .8 2020-08-29 2020-08-30 Bedded [facility] [id number] [facility] 10:20:00 14:10:00 Outpatient [facility] 00 l [facility] 2020-08-29 2020-08-30 Outpatient HEMATPOUR, [facility] CAR 7500 [facility] 05:20:00 09:10:00 [facility] Results Test Description Test Time Test Comments Results Result Comments Source Novel Coronavirus 2019 Inhouse 2021-08-03 18:08:00 Test Item Value Reference Range Interpretation Comme nts Novel Coronavirus 2018 Negative Negative Posit bruno results are indicative of the Inhouse (test code = presenc e lbPJDI-RaG-0 RNA, clinical COVNONPUI) correlation wit h patient [...] qualitative detection of nucleic acid s from wshOTJN-TiP-5 virus and diagn osis of SARS-CoV-2 virusinfection. It is an Emergency Use Authorization ( EUA) testauthorized by the U.S. FDA. BASIC METABOLIC [id number] 09:37:00 Test Item Value Reference Range Interpretation [...] = 9.0 mg/dL 8.0-10.5 N CA) PROTHROMBIN [id number] 09:32:00 Test Item Value Reference Range Interpretation [...] (to prevent recurrent infar ct). 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 [facility] - XR CHEST 1 [id number] 00:00:00 [facility] 1955 Sex: F FAX: Carmenza Kelly DO [phone] [place]: St: ADM FAX: Mike Scales MD [phone] FAX: Bahman Chopra [phone] Name: LIO WATTS : 1955 Age/S: 66/F [address] [place] [address] Bl Unit #: [id number] Loc: [place] [address] Phys: Bahman Chopra Acct: [id number] Dis Date: Status: ADM IN PHONE #: [phone] Exam Date: 06/17/2021 1320 FAX #: [phone] Reason: WATCHMAN EXAMS: CPT CODE: [id number] XR CHEST 1 V 39637 PROCEDURE INFORMATION: Exam: XR Chest Exam date [...] silhouette likely magnified by projection without interval change.Calcified plaque thoracic aorta. Faintly radiopaque atrial appendage occlusion device overlies the left mediastinum. The pulmonary vasculature is indistinct. Bones/joints: Bilateral shoulder prosthesespartially imaged. No acute skeletal abnormality. IMPRESSION: 1. Enlarged cardiac silhouette. Mild pulmonary vascular congestion may reflect component of congestive failure/volume loading. 2. Subsegmental atelectasis bilateral. at 1339 Reported and signed by: Lambert Vega M.D. CC: Llee Rahman DO; Mike Lund MD; Bahman Chopra Technologist: RT Taylor(R) Trnscrd Date/Time/By: 06/17/2021 (5962) : By: [email or web address] Orig Print D/T: S: 06/17/2021 (8641) PAGE 1 Signed ReportCOVID 19 Asymptomatic IH [id number] 12:29:00 Test Item Value Reference Range Interpretation [...] high or waivedcomplexit y tests. BASIC METABOLIC [id number] 11:37:00 Test Item Value Reference Range Interpretation [...] code = 9.0 mg/dL 8.0-10.5 N CA) [id number] 11:37:00 Test Item Value Reference Range Interpretation Comments PREALBUMIN (test code = PREALB) 24.3 mg/dL 16.0-40.0 N PROTHROMBIN [id number] 11:03:00 Test Item Value Reference Range Interpretation [...] (to prevent recurrent infar ct). CBC W/AUTO [id number] 10:59:00 Test Item Value Reference Range Interpretation [...] 0.0-0.1 N NRBC#) - XR CHEST 2 [id number] 00:00:00 [facility] 1955 Sex: F FAX: RobinCarmenza Peterson DO [phone] [place]: St: PRE FAX: Mike Scales MD [phone] Name: LIO WATTS [facility] : 1955 Age/S: 66/F [address] [place] [address] Unit #: [id number] [place]: [place] [address]Qkvh: Mike Lund MD Acct: [id number] Dis Date: Status: PRE [facility] PHONE #: [phone] Exam Date: 06/16/2021 1120 FAX #: [phone] Reason: PREOP EXAMS: CPT CODE: [id number] XR CHEST 2 V [id number] PROCEDURE INFORMATION: Exam: XR Chest Exam date [...] and signed by: Selene Collins D.O. CC: Carmenza Rahman ; Mike Lund MD Technologist: Danielle Nix, RT(R) Trnscrd Date/Time/By: 06/16/2021 (5838) : By: [email or web address] Orig Print D/T: S: 06/16/2021 (7783) PAGE 1 Signed ReportGastrointestinal [id number] 04:35:05 Test Item Value Reference Interpretation Comments [...] Rotavirus PCR (test Not Detected code = 6445530) Salmonella PCR (test Not Detected code = [...] PCR Not Detected (test code = 7124) [facility] qdczlyj3947-11-74 19:30:47 Test Item Value Reference Range Interpretation Comments Case number (test [id number] code = 7252743) Surgical pathology See link below for PDF report (test code = Lab Report 2255) Result status (test This is Supplemental code = 1570459) Report for [id number] [facility]2021-04-09 16:31:00 Test Item Value Reference Range Interpretation Comments POC Activated Clotting Time (test code 153 s = POC Activated Clotting Time) [facility]foy[facility]oQIUZAADOXM0110-76-[facility] 16:31:00 Test Item Value Reference Range Interpretation Comments POC Activated Clotting Time (test code 153 s = POC Activated Clotting Time) [place] 561251-04-09 16:31:00 Test Item Value Reference Range Interpretation Comments POC Activated Clotting Time (test code 153 s = POC Activated Clotting Time) [place] 561251-04-09 16:31:00 Test Item Value Reference Range Interpretation Comments POC Activated Clotting Time (test code 153 s = POC Activated Clotting Time) [place] 561251-04-09 16:31:00 Test Item Value Reference Range Interpretation Comments POC Activated Clotting Time (test code 153 s = POC Activated Clotting Time) [facility] HospitalWyawwfuPAOCNLFBLY7181-62-59 16:31:00 Test Item Value Reference Range Interpretation Comments POC Activated Clotting Time (test code 153 s = POC Activated Clotting Time) [facility] HospitalGxzcyooHQCXQQMKHW4422-42-60 16:31:00 Test Item Value Reference Range Interpretation Comments POC Activated Clotting Time (test code 153 s = POC Activated Clotting Time) [facility] HospitalEdqdyohJLJIBRIHYS2236-80-16 14:37:00 Test Item Value Reference Range Interpretation Comments POC Activated Clotting Time (test code 454 s = POC Activated Clotting Time) [facility] HospitalGycdddiPCLZQTYIDZ7319-68-24 14:37:00 Test Item Value Reference Range Interpretation Comments POC Activated Clotting Time (test code 454 s = POC Activated Clotting Time) [facility] HospitalPxqiqfdXPBGNHNUUO6168-17-81 14:37:00 Test Item Value Reference Range Interpretation Comments POC Activated Clotting Time (test code 454 s = POC Activated Clotting Time) [place] 561251-04-09 14:37:00 Test Item Value Reference Range Interpretation Comments POC Activated Clotting Time (test code 454 s = POC Activated Clotting Time) [place] 561251-04-09 14:37:00 Test Item Value Reference Range Interpretation Comments POC Activated Clotting Time (test code 454 s = POC Activated Clotting Time) [facility] HospitalCaadkalRNFGGZDKMR9526-25-71 14:37:00 Test Item Value Reference Range Interpretation Comments POC Activated Clotting Time (test code 454 s = POC Activated Clotting Time) [place] 561251-04-09 14:37:00 Test Item Value Reference Range Interpretation Comments POC Activated Clotting Time (test code 454 s = POC Activated Clotting Time) [facility] HospitalYwyffnrKZSXFPKDUG6248-44-87 14:13:00 Test Item Value Reference Range Interpretation Comments POC Activated Clotting Time (test code 354 s = POC Activated Clotting Time) [facility] HospitalPdhgmvlJVBCXGKQVN0795-53-42 14:13:00 Test Item Value Reference Range Interpretation Comments POC Activated Clotting Time (test code 354 s = POC Activated Clotting Time) [facility] HospitalBqiqqkzCWBEJTIUZM1080-46-49 14:13:00 Test Item Value Reference Range Interpretation Comments POC Activated Clotting Time (test code 354 s = POC Activated Clotting Time) [facility] HospitalElxlkzcQHYDTRFBEI7752-37-16 14:13:00 Test Item Value Reference Range Interpretation Comments POC Activated Clotting Time (test code 354 s = POC Activated Clotting Time) [facility] HospitalEgonhfnDOTQSWMVGT0369-79-18 14:13:00 Test Item Value Reference Range Interpretation Comments POC Activated Clotting Time (test code 354 s = POC Activated Clotting Time) [facility] HospitalUmpzzznSCQDQGXHVO6500-11-77 14:13:00 Test Item Value Reference Range Interpretation Comments POC Activated Clotting Time (test code 354 s = POC Activated Clotting Time) [facility] HospitalSzjkoipOUEDPXVLAP6682-57-57 14:13:00 Test Item Value Reference Range Interpretation Comments POC Activated Clotting Time (test code 354 s = POC Activated Clotting Time) [facility] NLPEFTJ6018-62-26 10:37:00Negative (08/29/20 5:37 AM) [facility]CHE[facility] PAKIX6088-17-99 10:37:05551Qcsihfyp HermannCHEM PANEL 2020-08-29 10:37:0028[facility] HermannCHEM VLSOE4928-19-89 10:37:001.01[facility] HermannCHEM KZFHU9370-49-42 10:37:84884Qxkoyzis HermannCHEM EPAYN7936-86-82 10:37:003.8[facility] HermannCHEM KUHBB2277-92-15 10:37:39327Lqguenvj HermannCHEM OTKOC5889-60-22 10:37:0028[facility] HermannCHEM JYTRS8455-56-07 10:37:009.8 [facility]CHE[facility] FOHRN5065-11-70 10:37:0011.8[facility] HermannCHEM PANEL 2020-08-29 10:37:0059[facility] HermannCHEM JGWEG9708-43-75 10:37:002.9[facility] GbdphgwJLITPQRSVT9083-75-85 10:37:006.8[facility] MxpugldBKXXGETPWB6130-92-01 10:37:004.47[facility] ZrjkioiJPNJDJMCNQ8373-40-48 10:37:0010.6[facility] YXCUCBURBT8372-56-26 10:37:0034.0[facility] NthxkjdJJQWLBSQWO1969-51-06 10:37:00 76.1[facility] KfiqnswWEGGKTKKXZ1481-54-58 10:37:00 Test Item Value Reference Range Interpretation Comments MCH (test code = MCH) 23.8 pg 27.0-31.0 [facility] MfyehgvKVCTGGDSOB7002-85-21 10:37:0031.3[facility] HermannHEMATOLOGY 2020-08-29 10:37:0018.2[facility] VmowdpeNQRPNSBEUV2587-79-10 10:37:59939Qkdbjkio SkjbmvqJUCXXNIIKC8061-23-51 10:37:007.5[facility] BlqahcuMKTVPZMCZH2191-88-95 10:37:00 Test Item Value Reference Range Interpretation Comments PT (test code = PT) 12.8 s 12.0-14.7 [facility] TrjleltPNWGDQATYW8068-86-30 10:37:00 Test Item Value Reference Range Interpretation Comments INR (test code = INR) 0.97 1 0.85-1.17 [facility] RdcjqoyISUIYAASNJ0736-55-95 10:37:00 Test Item Value Reference Range Interpretation Comments PTT (test code = PTT) 25.0 s 22.9-35.8 [facility] AtmxgxpYVVCOHTKYB8770-21-39 10:37:0070.5[facility] HermannHEMATOLOGY 2020-08-29 10:37:0018.8[facility] HcizkezXNHGKSWYOB7233-77-71 10:37:009.5[facility] ZeeiywiMTEBRWMSTN1846-91-11 10:37:000.9[facility] IjikbrvNOVUFSNXEP9123-03-62 10:37:000.3[facility] LhcqtufLKAPXEJIRS5973-54-18 10:37:004.8[facility] EPEHFCVAHR2151-40-09 10:37:001.3[facility] TpcrfjyBLXNLPSTUK6207-51-46 10:37:000.6 [facility] DpicsvwCULSKAAZCT3202-47-65 10:37:000.1[facility] HermannHEMATOLOGY 2020-08-29 10:37:001+ *ABN*(08/29/20 5:37 AM)[facility] EqhtmatFETVYCUIHP5432-77-90 10:37:00Not Detected (08/29/20 5:37 AM)[facility] HermannBLOOD BANK RESULTS 2020-08-29 10:37:00Negative (08/29/20 5:37 AM)[facility] HermannCHEM GAILJ2144-77-11 10:37:96483Getowvye HermannCHEM TWOCZ5936-98-90 10:37:0028[facility] HermannCHEM MVSPQ1978-19-45 10:37:001.01[facility] HermannCHEM JMEAS0043-11-09 10:37:96068 [facility] HermannCHEM QSBQA9156-07-37 10:37:003.8[facility] HermannCHEM PANEL 2020-08-29 10:37:78243Zngcuexy HermannCHEM JLFOS2442-74-81 10:37:0028[facility] HermannCHEM OSQGD0361-02-48 10:37:009.8[facility] HermannCHEM FVKCP8642-85-28 10:37:0011.8[facility] HermannCHEM ZDIDN6989-08-75 10:37:0059[facility] HermannCHEM CGUHQ6842-19-53 10:37:002.9[facility] InudptqKXGMAPMGXP1756-52-29 10:37:006.8 [facility] UfobcrxLYISWJADZN9811-70-67 10:37:004.47[facility] HermannHEMATOLOGY 2020-08-29 10:37:0010.6[facility] NgotfjlAMOOUBPXIC8628-44-28 10:37:0034.0[facility] UjcsnkqHIPRTTWOYD2845-35-61 10:37:0076.1[facility] OwdgwlwBLSAHJOWFW9258-94-15 10:37:00 Test Item Value Reference Range Interpretation Comments MCH (test code = MCH) 23.8 pg 27.0-31.0 [facility] UpimzgoWZRZADSVNI6737-70-17 10:37:0031.3[facility] HermannHEMATOLOGY 2020-08-29 10:37:0018.2[facility] BbijgwuKZDQLVOJRR3371-10-32 10:37:21731Dlvvhfls ThmemlmMBHBBOCHJM5051-56-76 10:37:007.5[facility] MtjpumfQXQXXKBZOD5189-39-21 10:37:00 Test Item Value Reference Range Interpretation Comments PT (test code = PT) 12.8 s 12.0-14.7 [facility] RijvvuxPTDJXKULGK6368-48-60 10:37:00 Test Item Value Reference Range Interpretation Comments INR (test code = INR) 0.97 1 0.85-1.17 [facility] UeifjpuFJNRKYUPLC7909-43-99 10:37:00 Test Item Value Reference Range Interpretation Comments PTT (test code = PTT) 25.0 s 22.9-35.8 [facility] ZcymoxoCLLXXZIAZJ9113-85-90 10:37:0070.5[facility] HermannHEMATOLOGY 2020-08-29 10:37:0018.8[facility] AzsenvjPZTNPOQQUN8119-41-22 10:37:009.5[facility] AbuyetrDIMAWCJXGO7265-56-61 10:37:000.9[facility] TcxjotzOFRQIOMBJS9115-95-67 10:37:000.3[facility] LudkthcGXPKIJWODR6912-60-30 10:37:004.8[facility] LWCYQDJDZR1313-75-38 10:37:001.3[facility] KacufpcKCHWYZXUGL4634-55-95 10:37:000.6 [facility] ZrmfeosNFNYIHFBYT6051-38-78 10:37:000.1[facility] HermannHEMATOLOGY 2020-08-29 10:37:001+ *ABN*(08/29/20 5:37 AM)[facility] QltkesmCVMUIHMFTT2378-06-07 10:37:00Not Detected (08/29/20 5:37 AM)[facility] HermannBLOOD BANK RESULTS 2020-08-29 10:37:00Negative (08/29/20 5:37 AM)[facility] HermannCHEM LKTBK0227-14-14 10:37:59182Vknknlfa HermannCHEM QJDAK3218-59-98 10:37:0028[facility] HermannCHEM ZDQDQ7508-16-46 10:37:001.01[facility] HermannCHEM YLKRC0488-84-05 10:37:13838 [facility] HermannCHEM RYGHN5461-15-05 10:37:003.8[facility] HermannCHEM PANEL 2020-08-29 10:37:42006Ssagyzco HermannCHEM VTXUS8160-31-73 10:37:0028[facility] HermannCHEM DQYZD0030-38-34 10:37:009.8[facility] HermannCHEM XHOYI2482-33-58 10:37:0011.8[facility] HermannCHEM AJAPF4590-40-73 10:37:0059[facility] HermannCHEM MWDVM4292-50-45 10:37:002.9[facility] ZbxjrrlENGGPVIBQQ6398-22-07 10:37:006.8 [facility] GnrygqtHZFQBUWONW6595-40-48 10:37:004.47[facility] HermannHEMATOLOGY 2020-08-29 10:37:0010.6[facility] LshegitUVDRLUYHWS8263-65-63 10:37:0034.0[facility] BrxcoerJJLBKPAPKN6047-72-40 10:37:0076.1[facility] QuaswseYAPMIZEXFM6366-68-65 10:37:00 Test Item Value Reference Range Interpretation Comments MCH (test code = MCH) 23.8 pg 27.0-31.0 [facility] VhuvhhiWDKMYTNIKU1043-43-19 10:37:0031.3[facility] HermannHEMATOLOGY 2020-08-29 10:37:0018.2[facility] IqxnnbpQXAGFBZRVJ0361-66-08 10:37:58043Allawxdk YqycvsvNFNMPXNDSK5520-88-12 10:37:007.5[facility] WrutengUZHBAGFKJG8429-84-41 10:37:00 Test Item Value Reference Range Interpretation Comments PT (test code = PT) 12.8 s 12.0-14.7 [facility] KttwopnKKHIVZKZNF7882-90-11 10:37:00 Test Item Value Reference Range Interpretation Comments INR (test code = INR) 0.97 1 0.85-1.17 [facility] HhtpnsmSXTIGMKJES0088-78-95 10:37:00 Test Item Value Reference Range Interpretation Comments PTT (test code = PTT) 25.0 s 22.9-35.8 [facility] HlorsigEWQIWFKYWO9476-68-50 10:37:0070.5[facility] HermannHEMATOLOGY 2020-08-29 10:37:0018.8[facility] EcwgwdcIHTUFPOTFH8388-95-98 10:37:009.5[facility] OsqqgydZEVPLYYCOU5234-45-34 10:37:000.9[facility] PxfznrwGBVJLBSJTX4037-41-27 10:37:000.3[facility] QakysglJODYZQWIQW2980-46-98 10:37:004.8[facility] OTVISJJPUO2900-13-16 10:37:001.3[facility] SngpihhUYKKDBYDZU5568-47-40 10:37:000.6 [facility] QioepxhQTOUKELCTC1189-18-46 10:37:000.1[facility] HermannHEMATOLOGY 2020-08-29 10:37:001+ *ABN*(08/29/20 5:37 AM)[facility] XgpfvcaGVMBDCNHVK8285-42-52 10:37:00Not Detected (08/29/20 5:37 AM)[facility] HermannBLOOD BANK RESULTS 2020-08-29 10:37:00Negative (08/29/20 5:37 AM)[facility] HermannCHEM TYKZG2794-81-83 10:37:26937Pxncagyf HermannCHEM YSWCI2120-53-50 10:37:0028[facility] HermannCHEM ICHYH6421-17-50 10:37:001.01[facility] HermannCHEM HSUWT2315-88-33 10:37:88287 [facility] HermannCHEM JOVHO9019-42-87 10:37:003.8[facility] HermannCHEM PANEL 2020-08-29 10:37:36667Jovtaajp HermannCHEM GONNM5039-18-08 10:37:0028[facility] HermannCHEM DQSVK8106-97-64 10:37:009.8[facility] HermannCHEM ZPYJS4671-48-05 10:37:0011.8[facility] HermannCHEM EAXGS5947-24-71 10:37:0059[facility] HermannCHEM ARLHM6002-16-39 10:37:002.9[facility] HuzcgphGZFARFXTLR1806-47-11 10:37:006.8 [facility] IcvfbanWVSXWCQGIN7703-26-11 10:37:004.47[facility] HermannHEMATOLOGY 2020-08-29 10:37:0010.6[facility] WrkxrrqWBIHREQNNF2817-47-59 10:37:0034.0[facility] MjumnuyGTENLEUOJH6216-41-00 10:37:0076.1[facility] BxbpjgeSHBSNZHSWD8953-02-92 10:37:00 Test Item Value Reference Range Interpretation Comments MCH (test code = MCH) 23.8 pg 27.0-31.0 [facility] KvzmhwzOKFPOPMOHY2813-16-80 10:37:0031.3[facility] HermannHEMATOLOGY 2020-08-29 10:37:0018.2[facility] CovdbztYQTURUWLIY7903-43-73 10:37:44070Ctsylmxj DlmnqtpACHZWRXUQN9193-09-57 10:37:007.5[facility] WdiiibpWUMYLWYPWG4936-87-74 10:37:00 Test Item Value Reference Range Interpretation Comments PT (test code = PT) 12.8 s 12.0-14.7 [facility] ViihamwMURQNULVBE5538-17-53 10:37:00 Test Item Value Reference Range Interpretation Comments INR (test code = INR) 0.97 1 0.85-1.17 [facility] RiaennhXZACHXRLYV7965-98-06 10:37:00 Test Item Value Reference Range Interpretation Comments PTT (test code = PTT) 25.0 s 22.9-35.8 [facility] OlkxlvhPHQTFGCCBX7752-15-75 10:37:0070.5[facility] HermannHEMATOLOGY 2020-08-29 10:37:0018.8[facility] YuvdtbbRUGCQBUGPM8983-63-77 10:37:009.5[facility] IxktzjfUWLTEIMWMI4491-27-53 10:37:000.9[facility] RhhcnkmGERORPOWQX3628-04-56 10:37:000.3[facility] YewcwpmIZGOQKZKWD4834-42-49 10:37:004.8[facility] QYWVOQVPTN1006-81-97 10:37:001.3[facility] RadcerqKMDSOEJRHJ2650-00-34 10:37:000.6 [facility] UvztsizADKILJARDA8202-80-38 10:37:000.1[facility] HermannHEMATOLOGY 2020-08-29 10:37:001+ *ABN*(08/29/20 5:37 AM)[facility] MthwjebNUPNVYSZRY1194-46-99 10:37:00Not Detected (08/29/20 5:37 AM)[facility] HermannBLOOD BANK RESULTS 2020-08-29 10:37:00Negative (08/29/20 5:37 AM)[facility] HermannCHEM DJVVN2535-38-36 10:37:92614Olhhniga HermannCHEM IQYTW9419-01-43 10:37:0028[facility] HermannCHEM CLVBR7998-20-32 10:37:001.01[facility] HermannCHEM MJNTR4818-83-41 10:37:68363 [facility] HermannCHEM CFBJP7639-82-18 10:37:003.8[facility] HermannCHEM PANEL 2020-08-29 10:37:78753Fssbweky HermannCHEM FNARB2438-02-56 10:37:0028[facility] HermannCHEM NHDRA6051-43-86 10:37:009.8[facility] HermannCHEM XKLXX9999-89-12 10:37:0011.8[facility] HermannCHEM XHXTW7829-50-93 10:37:0059[facility] HermannCHEM AYYTH3305-71-94 10:37:002.9[facility] PpyuxnpAPUBYPVUXH8907-55-17 10:37:006.8 [facility] ZfmkoyhRKVWYVWFSV9301-41-75 10:37:004.47[facility] HermannHEMATOLOGY 2020-08-29 10:37:0010.6[facility] LncxkedARJCBJTXUR2149-27-57 10:37:0034.0[facility] WhthqmaFOAERXIYCJ4461-48-17 10:37:0076.1[facility] IseopwrKVHQRKSPXK7196-96-58 10:37:00 Test Item Value Reference Range Interpretation Comments MCH (test code = MCH) 23.8 pg 27.0-31.0 [facility] UqqapscMIVDYUWEGQ5869-64-10 10:37:0031.3[facility] HermannHEMATOLOGY 2020-08-29 10:37:0018.2[facility] AtqoaklOFQTYVEUGN4345-79-28 10:37:91394Ybvogixn LthppbwMCIMNQXIDR1814-93-05 10:37:007.5[facility] HbtsdcmEMKHZZAHQZ9726-81-56 10:37:00 Test Item Value Reference Range Interpretation Comments PT (test code = PT) 12.8 s 12.0-14.7 [facility] NgmgpnnHWKYJHBRJK5314-12-89 10:37:00 Test Item Value Reference Range Interpretation Comments INR (test code = INR) 0.97 1 0.85-1.17 [facility] MbssmhrWHZTEEKMWT5565-77-72 10:37:00 Test Item Value Reference Range Interpretation Comments PTT (test code = PTT) 25.0 s 22.9-35.8 [facility] QosvkquFFQJVBKXHU7019-52-75 10:37:0070.5[facility] HermannHEMATOLOGY 2020-08-29 10:37:0018.8[facility] RtzaowwWBECSKYGEA2289-77-94 10:37:009.5[facility] NzkvtndFHHYVJUCAD6362-13-04 10:37:000.9[facility] NomqxxlWJWFDLMASX4502-35-02 10:37:000.3[facility] PbtibfiIZNTYUMNOE2330-84-47 10:37:004.8[facility] FSPXIZNBCD5006-40-44 10:37:001.3[facility] HfxtiwcCRNDKANZTU1925-60-97 10:37:000.6 [facility] NahnfwzCWOBMBIBVM8503-23-23 10:37:000.1[facility] HermannHEMATOLOGY 2020-08-29 10:37:001+ *ABN*(08/29/20 5:37 AM)[facility] QswjdarHBCAUKYELC8197-58-71 10:37:00Not Detected (08/29/20 5:37 AM)[facility] HermannBLOOD BANK RESULTS 2020-08-29 10:37:00Negative (08/29/20 5:37 AM)[facility] HermannCHEM IRGFO5730-26-99 10:37:06812Pkhjahln HermannCHEM OHMLW7741-47-36 10:37:0028[facility] HermannCHEM SFUXM0878-35-41 10:37:001.01[facility] HermannCHEM AUTEF5175-36-04 10:37:07721 [facility] HermannCHEM TLPQV8566-56-14 10:37:003.8[facility] HermannCHEM PANEL 2020-08-29 10:37:82985Vowhleyo HermannCHEM URYQN4274-55-28 10:37:0028[facility] HermannCHEM FSTEG1697-23-24 10:37:009.8[facility] HermannCHEM HXVHO0661-94-21 10:37:0011.8[facility] HermannCHEM NREYH7721-14-35 10:37:0059[facility] HermannCHEM ZQQWM1195-01-04 10:37:002.9[facility] ZehedpbRUZTUSOEFD3063-25-49 10:37:006.8 [facility] XdgmuokFMOJGUDVHB3875-42-05 10:37:004.47[facility] HermannHEMATOLOGY 2020-08-29 10:37:0010.6[facility] LypmmwxHLGBYTVYDY6004-19-69 10:37:0034.0[facility] UyxlzbeEJVFLAAKNA9103-25-67 10:37:0076.1[facility] WzlbyxwIWRHCWVGYV1109-80-27 10:37:00 Test Item Value Reference Range Interpretation Comments MCH (test code = MCH) 23.8 pg 27.0-31.0 [facility] DwnldfwPIWNLHWHMZ7608-60-74 10:37:0031.3[facility] HermannHEMATOLOGY 2020-08-29 10:37:0018.2[facility] NnqmoqfTVHXMNWBBW9594-14-80 10:37:04329Igpxzlvb LnmdxvrPWZLRGWVRL2248-38-72 10:37:007.5[facility] JcpnhzpLIYEPCSZIG6768-64-50 10:37:00 Test Item Value Reference Range Interpretation Comments PT (test code = PT) 12.8 s 12.0-14.7 [facility] WiokqxoDNGFCZFJPM3092-96-29 10:37:00 Test Item Value Reference Range Interpretation Comments INR (test code = INR) 0.97 1 0.85-1.17 [facility] BgfumnpTPQAXVUWTX7141-02-91 10:37:00 Test Item Value Reference Range Interpretation Comments PTT (test code = PTT) 25.0 s 22.9-35.8 [facility] MsskjssZCAHXTBASF5064-16-70 10:37:0070.5[facility] HermannHEMATOLOGY 2020-08-29 10:37:0018.8[facility] CnkfgcqPKBWKCOYNO0488-47-25 10:37:009.5[facility] SrbggfhVCSODDGTYI7460-95-10 10:37:000.9[facility] RrcywseHCVJIOPEUU1823-84-51 10:37:000.3[facility] DiiwaokJJNTEXPCLQ6844-53-95 10:37:004.8[facility] [place] NAFYYEXYWM0523-96-26 10:37:001.3[facility] UvvxuqwZJKHVSJUBE4551-70-14 10:37:000.6 [facility] TrnonyaQQCBIFOFVG7536-57-19 10:37:000.1[facility] HermannHEMATOLOGY 2020-08-29 10:37:001+ *ABN*(08/29/20 5:37 AM)[facility] XpeoqlxRSGBVZEXYK3361-13-80 10:37:00Not Detected (08/29/20 5:37 AM)[facility] HermannBLOOD BANK RESULTS 2020-08-29 10:37:00Negative (08/29/20 5:37 AM)[facility] HermannCHEM JBLYB3165-38-03 10:37:87371Mdzlncbr HermannCHEM ZQAHS6641-34-77 10:37:0028[facility]annCHEM QCXML5929-18-72 10:37:001.01[facility]annCHEM UGQOB2756-05-64 10:37:45908 [facility]annCHE[facility] IAIEW0688-54-68 10:37:003.8[facility]annCHEM PANEL 2020-08-29 10:37:59029Dntkhloy HermannCHEM GPHYI5764-63-46 10:37:0028[facility]annCHEM ZTOOX9703-93-97 10:37:009.8[facility]annCHEM WWNGH6125-93-62 10:37:0011.8[facility]annCHEM AYWUO6207-39-31 10:37:0059[facility]annCHEM JZVJQ4001-98-72 10:37:002.9[facility] EwckjqrEQVZHVHNAN0606-44-38 10:37:006.8 [facility] XssmianZUDJKDEPMW4721-23-56 10:37:004.47[facility]annHEMATOLOGY 2020-08-29 10:37:0010.6[facility] BjsgijmCBJHYGDKFO4417-87-13 10:37:0034.0[facility] EttgqpbFFBNLICDRY6279-54-63 10:37:0076.1[facility] CobwvjkIECFPIMUEE3976-63-68 10:37:00 Test Item Value Reference Range Interpretation Comments MCH (test code = MCH) 23.8 pg 27.0-31.0 [facility] WqxyddgEDVDHLKTAQ1267-64-87 10:37:0031.3[facility]annHEMATOLOGY 2020-08-29 10:37:0018.2[facility] JtigqneNOITZUKCUD1415-92-25 10:37:58360Btohnrhr KxddwxyWXBXMGWNFW3902-98-03 10:37:007.5[facility] VbyzvpgVGSWJQPSOC4222-05-76 10:37:00 Test Item Value Reference Range Interpretation Comments PT (test code = PT) 12.8 s 12.0-14.7 [facility] QplrmttGHHKLDRPTO5141-42-79 10:37:00 Test Item Value Reference Range Interpretation Comments INR (test code = INR) 0.97 1 0.85-1.17 [facility] OqeqztwJZILTDZYSR2831-73-01 10:37:00 Test Item Value Reference Range Interpretation Comments PTT (test code = PTT) 25.0 s 22.9-35.8 [facility] YvfanrjAZNLVULDFL9739-86-23 10:37:0070.5[facility]annHEMATOLOGY 2020-08-29 10:37:0018.8[facility] CrxggluKPZEKSQLIA6108-39-33 10:37:009.5[facility] EspeeyvWKAMCCBBIV0046-62-40 10:37:000.9[facility] LzhovgkSNUBINXNDM7186-85-62 10:37:000.3[facility] KrqkoqoIQACLRNGWG3370-94-67 10:37:004.8[facility] FGHKGKBNKB6992-31-88 10:37:001.3[facility] MzusvbfXLBTPWNRGX4964-12-12 10:37:000.6 [facility] EjxsgliHFKBXNPBFC8873-02-66 10:37:000.1[facility]annHEMATOLOGY 2020-08-29 10:37:001+ *ABN*(08/29/20 5:37 AM)[facility] EyxkwiyIXNHDSLDFX9484-49-40 10:37:00Not Detected (08/29/20 5:37 AM)[facility]CHLAMYDIA, GC, TV,PCR, IN AGXDN7365-88-46 15:38:00 Test Item Value Reference Range Interpretation Comments FT (test code = CHTR) Not detected (qualifier Not Detected N value) FT (test code = Not detected (qualifier Not Detected N NGONO) value) FT (test code = TRVG) Not detected (qualifier Not Detected N value) URINALYSIS WITH ILWQKXSTJVC7921-91-52 10:57:00 Test Item Value Reference Range Interpretation Comments Color (test code = UCOLR) Dk. Yellow Clarity (test code = UCLAR) Hazy Glucose (test code = UGLUC) NEGATIVE NEGATIVE N Bilirubin (test code = UBILI) NEGATIVE NEGATIVE N Ketones (test code = UKET) NEGATIVE NEGATIVE N Specific [place] (test code = 1.025 1.005-1.030 A USPGR) [...]
--- NOTE | 2021-12-28 12:22 | RAD REPORT ---
EXAM DESCRIPTION: RAD - Chest Single View - 12/28/2021 12:10 pm CLINICAL HISTORY: CHEST PAIN COMPARISON: Two view chest 12/02/2021 TECHNIQUE: AP portable chest image was obtained 12/28/2021 12:10 pm . FINDINGS: No new mass or consolidation. Interstitial pattern is not clearly different from prior exa mination when adjusting for differences in technique. Heart size is upper normal and similar to josé miguel rison. No abnormal vascular engorgement. Trachea is in the midline. No measurable pleural effusion and no pneumothorax. No acute bone findings seen. Bilateral shoulder prostheses are in place. No acute aortic findings suspected. IMPRESSION: No acute cardiopulmonary process. No significant change from comparison.
[2021-12-28] MEDS ORDERED: METHYLPREDNISOLONE 125 MG INJ ONE (12:35)
[2021-12-28] MEDS ORDERED: MORPHINE 4 MG/ML SYR ONE ×3 (12:36→18:13)
[2021-12-28] MEDS ORDERED: DIPHENHYDRAMINE 50 MG/ML VIAL ONE (12:36)
[2021-12-28 13:15] LABS: Absolute Lymphocytes (CBC) 1.1 K/uL (0.7-4.9); Hematocrit 36.7 % (36.0-45.0); Lymphocytes % 26.6 % (15.3-44.8); MCV 84.5 fL (80-100); MPV 6.8 fL (7.6-11.3); RBC Red Blood Cell Count 4.34 M/uL (3.86-4.86)
[2021-12-28 13:24] LABS: Protime INR 1.01
[2021-12-28 13:37] LABS: Magnesium 2.3 mg/dL (1.8-2.4); Potassium 3.5 mmol/L (3.5-5.1); Troponin High Sensitivity 15.1 pg/mL (<58.9)
[2021-12-28 14:03] LABS: Anisocytosis 3+; Blood Morphology Comment NOTED (NOT SEEN); Platelet Estimate DECR; White Blood Cell Scan OK (OK)
[2021-12-28] MEDS ORDERED: HYDRALAZINE HCL 20 MG/ML VIAL ONE (15:08)
[2021-12-28] MEDS ORDERED: FUROSEMIDE 20 MG/ 2ML VIAL ONE (15:13)
--- NOTE | 2021-12-28 17:56 | EDPHYS ---
Physician Documentation [facility] Name: Fawn Fleming Age: 66 yrs Sex: Female : 1955 Arrival Date: 12/28/2021 Time: 10:56 Bed 10 Private MD: Lele Rahman H ED Physician Ramon Baker HPI: 12/28 11:05 This 66 yrs old Female presents to ER via EMS with complaints of Chest Pain, Hives, cp Shortness Of Breath. 11:05 The patient has shortness of breath at rest. cp 11:05 Onset: The symptoms/episode began/occurred today. Duration: The symptoms are cp continuous, and are steadily getting worse. Associated signs and symptoms: Pertinent positives: chest pain, hives, Pertinent negatives: diaphoresis, dizziness, fever, vomiting. Severity of symptoms: in the emergency department the symptoms are unchanged despite EMS interventions. The patient has experienced similar episodes in the past, multiple times. Historical: - Allergies: 10:58 Bactrim DS; jl7 10:58 butorphanol tartrate; jl7 10:58 Fentanyl; jl7 10:58 Reglan; jl7 10:58 Stadol; jl7 10:58 sulfamethoxazole (bulk); jl7 10:58 TRIMETHOPRIM; jl7 - PMHx: 10:58 Anxiety; Atrial Fib; Bipolar disorder; Chronic pain; COPD; esophageal varices; jl7 Hepatitis; HIV; Hypertension; Migraines; Panic Attacks; - PSHx: 10:58 Appendectomy; Bilateral shoulder repair; Cholecystectomy; hernia repair; R wrist SX; jl7 - Immunization history:: Client reports receiving the 2nd dose of the Covid vaccine. - Social history:: Smoking status: Patient denies any tobacco usage or history of. ROS: 11:10 Constitutional: Negative for body aches, chills, fever, poor PO intake. cp 11:10 Eyes: Negative for injury, pain, redness, and discharge. cp 11:10 ENT: Negative for drainage from ear(s), ear pain, sore throat, difficulty swallowing, difficulty handling secretions. 11:10 Cardiovascular: Positive for chest pain, Negative for edema, palpitations. 11:10 Respiratory: Positive for shortness of breath, at rest. Negative for cough, wheezing. 11:10 Abdomen/GI: Negative for abdominal pain, nausea, vomiting, and diarrhea, constipation. 11:10 Back: Negative for pain at rest, pain with movement. 11:10 Neuro: Negative for altered mental status, dizziness, headache, weakness. Exam: 11:06 ECG was reviewed by the Attending Physician. cp 11:15 Constitutional: The patient appears in no acute distress, alert, awake, cp non-diaphoretic, non-toxic, well developed, well nourished. 11:15 Head/Face: Normocephalic, atraumatic. cp 11:15 Eyes: Periorbital structures: appear normal, Conjunctiva: normal, no exudate, no injection, Sclera: no appreciated abnormality, Lids and lashes: appear normal, bilaterally. 11:15 ENT: External ear(s): are unremarkable, Nose: is normal, Mouth: Lips: moist, Oral mucosa: pink and intact, moist, Posterior pharynx: Airway: no evidence of obstruction, patent. 11:15 Neck: ROM/movement: is normal, is supple, without pain, no range of motions limitations. 11:15 Chest/axilla: Inspection: normal. 11:15 Cardiovascular: Rate: bradycardic, Rhythm: regular, Edema: is not appreciated, JVD: is not appreciated. 11:15 Respiratory: the patient does not display signs of respiratory distress, Respirations: labored breathing, is not present, shallow respirations, are not present, Breath sounds: bronchial sounds, that are mild, are heard diffusely, stridor, is not appreciated, wheezing: is not appreciated. 11:15 Abdomen/GI: Inspection: abdomen appears normal, Palpation: abdomen is soft and non-tender, in all quadrants. 11:15 Skin: consistent with urticaria, and is diffusely located. 11:15 Neuro: Orientation: to person, place \T\ time. Mentation: is normal, Motor: moves all fours, strength is normal, Sensation: is normal. Vital Signs: 10:56 BP 193 / 131; Pulse 59; Resp 17; Temp 97.2; Pulse Ox 97% on R/A; Weight 80.74 kg; jl7 Height 5 ft. 4 in. (162.56 cm); Pain 5/10; 14:44 BP 186 / 95; Pulse 57; Resp 18; Pulse Ox 100% ; Pain 8/10; kb3 14:58 BP 205 / 110; Pulse 55; Resp 16; Pulse Ox 99% on R/A; Pain 10/10; hb 15:26 BP 183 / 89; Pulse 58; Resp 20; Pulse Ox 98% ; kb3 16:57 BP 180 / 87; Pulse 58; Resp 18; Pulse Ox 98% ; Pain 8/10; kb3 18:19 BP 175 / 97; Pulse 61; Resp 18; Pulse Ox 97% ; Pain 8/10; kb3 10:56 Body Mass Index 30.55 (80.74 kg, 162.56 cm) jl7 MDM: 12:16 Patient medically screened. cp 17:55 Data reviewed: vital signs, nurses notes, lab test result(s), EKG, radiologic studies, cp plain films. 17:55 Test interpretation: by ED physician or midlevel provider: ECG, plain radiologic cp studies. Counseling: I had a detailed discussion with the patient and/or guardian regarding: the historical points, exam findings, and any diagnostic results supporting the discharge/admit diagnosis, the presence of at least one elevated blood pressure reading (>120/80) during this emergency department visit, lab results, radiology results, the need for outpatient follow up, a family practitioner, to return to the emergency department if symptoms worsen or persist or if there are any questions or concerns that arise at home. Response to treatment: the patient's symptoms have markedly improved after treatment. 12/28 10:57 Order name: Basic Metabolic Panel; Complete Time: 14:21 cp 12/28 14:21 Interpretation: Normal except: CL 108; BUN 26; GFR 67; CA 8.4. cp 12/28 10:57 Order name: CBC with Diff; Complete Time: 14:21 cp 12/28 13:45 Interpretation: Reviewed. cp 12/28 10:57 Order name: Magnesium; Complete Time: 14:21 cp 12/28 10:57 Order name: NT PRO-BNP; Complete Time: 14:21 cp 12/28 14:22 Interpretation: Abnormal: NT PRO-BNP 2530. cp 12/28 10:57 Order name: PT-INR; Complete Time: 13:45 cp 12/28 10:57 Order name: Troponin HS; Complete Time: 14:21 cp 12/28 10:57 Order name: XRAY Chest (1 view); Complete Time: 13:45 cp 12/28 13:19 Order name: CBC Smear Scan; Complete Time: 14:21 EDMS 12/28 15:56 Order name: Troponin High Sensitivity; Complete Time: 17:45 cp 12/28 17:45 Interpretation: Reviewed. cp 12/28 10:57 Order name: EKG; Complete Time: 10:59 cp 12/28 10:57 Order name: Cardiac monitoring; Complete Time: 13:37 cp 12/28 10:57 Order name: EKG - Nurse/Tech; Complete Time: 12:24 cp 12/28 10:57 Order name: IV Saline Lock; Complete Time: 13:09 cp 12/28 10:57 Order name: Labs collected and sent; Complete Time: 13:09 cp 12/28 10:57 Order name: O2 Per Protocol; Complete Time: 12:24 cp 12/28 10:57 Order name: O2 Sat Monitoring; Complete Time: 12:24 cp 12/28 14:49 Order name: Diet Heart Healthy; Complete Time: 14:59 cp EC:06 Rate is 51 beats/min. Rhythm is regular. OR interval is normal. QRS interval is normal. cp QT interval is prolonged at 504 msec. Interpreted by me. Reviewed by me. Administered Medications: 13:15 Drug: SOLU-Medrol (methylPrednisoLONE) 125 mg Route: IVP; Site: left upper arm; kb3 14:31 Follow up: Response: No adverse reaction hb 13:15 Drug: Benadryl (diphenhydrAMINE) 25 mg Route: IVP; Site: left upper arm; kb3 14:31 Follow up: Response: No adverse reaction hb 13:15 Drug: morphine 4 mg Route: IVP; Infused Over: 4 mins; Site: left upper arm; kb3 14:32 Follow up: Response: Pain is decreased hb 15:05 Drug: Lasix (furosemide) 40 mg Route: IVP; Site: left upper arm; hb 16:00 Follow up: Response: No adverse reaction kb3 15:05 Drug: morphine 4 mg Route: IVP; Infused Over: 4 mins; Site: left upper arm; hb 16:00 Follow up: Response: No adverse reaction; Pain is decreased kb3 15:05 Drug: hydrALAZINE 10 mg Route: IVP; Site: left upper arm; hb 16:15 Follow up: Response: No adverse reaction; Blood pressure is lowered kb3 17:53 CANCELLED (Physician Discretion): Hydrocodone-Acetaminophen (7.5 mg-325 mg) 1 tabs PO cp once; RASS on ADMIN: Combtv4, Very Agttd3, Agttd2, Rstlss1, AlertClm0, Drwsy-1, Lt Sdtn-2, Mod Sdtn-3, Dp Sdtn-4, UnArsble-5 18:14 Drug: morphine 4 mg Route: IVP; Infused Over: 4 mins; Site: left upper arm; kb3 18:53 Follow up: Response: No adverse reaction; Pain is decreased kb3 18:54 Not Given (Did not meet parameterss): hydrALAZINE 10 mg IVP once; if systolic pressure kb3 >180 Disposition Summary: 12/28/21 17:55 Discharge Ordered Location: Home cp Problem: an ongoing problem cp Symptoms: have improved cp Condition: Stable cp Diagnosis - Chest pain, unspecified cp - Urticaria, unspecified cp - Hypertensive heart disease with heart failure cp Followup: cp - With: Private Physician - When: 1 - 2 days - Reason: Recheck today's complaints Discharge Instructions: - Discharge Summary Sheet cp - Nonspecific Chest Pain, Adult cp - Hives cp - Hypertension, Adult cp - Managing Your Hypertension cp - Aspirin and Your Heart cp Forms: - Medication Reconciliation Form cp - Thank You Letter cp - Antibiotic Education cp - Prescription Opioid Use cp Addendum: 12/29/2021 21:45 Co-signature as Attending Physician, Ramon Baker MD. r n Signatures: Dispatcher [employer] EDRamon Harrison MD MD rn Page, Corey, PA PA cp Tata Rivera RN RN hb Leal, Jahala, RN RN jl7 Ava Mabry RN RN kb3 Corrections: (The following items were deleted from the chart) 12/28 17:53 17:52 Hydrocodone-Acetaminophen (7.5 mg-325 mg) 1 tabs PO once; RASS on ADMIN: Combtv4, cp Very Agttd3, Agttd2, Rstlss1, AlertClm0, Drwsy-1, Lt Sdtn-2, Mod Sdtn-3, Dp Sdtn-4, UnArsble-5 ordered. cp
--- NOTE | 2021-12-28 17:56 | ER ---
Nurse's Notes [facility] Name: Fawn Fleming Age: 66 yrs Sex: Female : 1955 Arrival Date: 12/28/2021 Time: 10:56 Bed 10 Private MD: Lele Rahman H Diagnosis: Chest pain, unspecified;Urticaria, unspecified;Hypertensive heart disease with heart failure Presentation: 12/28 10:56 Chief complaint: EMS states: Hives all over body x 3 days, CP and SOB since 0430 this jl7 morning, CP is reproducible with palpation. Coronavirus screen: At this time, the client does not indicate any symptoms associated with coronavirus-19. Ebola Screen: No symptoms or risks identified at this time. Initial Sepsis Screen: Does the patient meet any 2 criteria? No. Patient's initial sepsis screen is negative. Does the patient have a suspected source of infection? No. Patient's initial sepsis screen is negative. Risk Assessment: Do you want to hurt yourself or someone else? Patient reports no desire to harm self or others. Onset of symptoms was December 28, 2021 at 04:30. 10:56 Method Of Arrival: EMS: [facility] jl7 10:56 Acuity: BLAYNE 3 jl7 Triage Assessment: 10:58 General: Appears in no apparent distress. uncomfortable, Behavior is calm, cooperative, jl7 appropriate for age. Pain: Complains of pain in anterior aspect of left upper chest Pain currently is 5 out of 10 on a pain scale. Aggravated by palpation. Cardiovascular: Patient's skin is warm and dry. Historical: - Allergies: 10:58 Bactrim DS; jl7 10:58 butorphanol tartrate; jl7 10:58 Fentanyl; jl7 10:58 Reglan; jl7 10:58 Stadol; jl7 10:58 sulfamethoxazole (bulk); jl7 10:58 TRIMETHOPRIM; jl7 - PMHx: 10:58 Anxiety; Atrial Fib; Bipolar disorder; Chronic pain; COPD; esophageal varices; jl7 Hepatitis; HIV; Hypertension; Migraines; Panic Attacks; - PSHx: 10:58 Appendectomy; Bilateral shoulder repair; Cholecystectomy; hernia repair; R wrist SX; jl7 - Immunization history:: Client reports receiving the 2nd dose of the Covid vaccine. - Social history:: Smoking status: Patient denies any tobacco usage or history of. Screenin:15 Fall Risk Fall in past 12 months (25 points). Secondary diagnosis (15 points) IV access kb3 (20 points). Gait- Weak (10 pts.). Mental Status- Oriented to own ability (0 pts). Total Hauser Fall Scale indicates High Risk Score (45 or more points). 14:33 Abuse screen: Denies threats or abuse. Nutritional screening: No deficits noted. hb Tuberculosis screening: No symptoms or risk factors identified. Assessment: 12:15 Pain: Complains of pain in anterior aspect of left upper chest Pain does not radiate. kb3 Pain began This morning upon waking. Cardiovascular: Heart tones present Capillary refill is sluggish Patient's skin is warm and dry. Pulses are 1+ in right radial artery and left radial artery Rhythm is sinus rhythm Chest pain is described as Pain is 8 out of 10 on a pain scale. quality is pressure, is located in left anterior chest wall radiates began episodes are continuous. Respiratory: No deficits noted. GI: No deficits noted. : No deficits noted. 14:00 Reassessment: Patient appears in no apparent distress at this time. Patient and/or hb family updated on plan of care and expected duration. Pain level reassessed. Patient is alert, oriented x 3, equal unlabored respirations, skin warm/dry/pink. 15:55 Reassessment: Patient appears in no apparent distress at this time. Patient and/or hb family updated on plan of care and expected duration. Pain level reassessed. Patient is alert, oriented x 3, equal unlabored respirations, skin warm/dry/pink. 16:40 General: Pt is resting quietly, no s/s of distress. . kb3 17:54 General: Pt sitting on side of bed eating, dinner tray provided. Pt continues to kb3 request more pain medication. PA notified.. Vital Signs: 10:56 BP 193 / 131; Pulse 59; Resp 17; Temp 97.2; Pulse Ox 97% on R/A; Weight 80.74 kg; jl7 Height 5 ft. 4 in. (162.56 cm); Pain 5/10; 14:44 BP 186 / 95; Pulse 57; Resp 18; Pulse Ox 100% ; Pain 8/10; kb3 14:58 BP 205 / 110; Pulse 55; Resp 16; Pulse Ox 99% on R/A; Pain 10/10; hb 15:26 BP 183 / 89; Pulse 58; Resp 20; Pulse Ox 98% ; kb3 16:57 BP 180 / 87; Pulse 58; Resp 18; Pulse Ox 98% ; Pain 8/10; kb3 18:19 BP 175 / 97; Pulse 61; Resp 18; Pulse Ox 97% ; Pain 8/10; kb3 10:56 Body Mass Index 30.55 (80.74 kg, 162.56 cm) jl7 ED Course: 10:56 Patient arrived in ED. mr 10:56 Lele Rahman DO is Private Physician. mr 10:56 Justus Neil PA is PHCP. cp 10:56 Ramon Baker MD is Attending Physician. cp 10:58 Triage completed. jl7 10:58 Arm band placed on right wrist. EKG completed in triage. Results shown to MD. jl7 12:07 X-ray completed. Portable x-ray completed in exam room. Patient tolerated procedure mh1 well. Patient taken to [facility]. 12:09 Ava Mabry, RN is Primary Nurse. kb3 12:12 XRAY Chest (1 view) In Process Unspecified. EDMS 12:15 Patient has correct armband on for positive identification. Bed in low position. Call kb3 light in reach. Side rails up X 1. Client placed on continuous cardiac and pulse oximetry monitoring. NIBP monitoring applied. supervisor melt house on. Pulse ox on. NIBP on. Door closed. Lights dimmed. Warm blanket given. 13:09 Basic Metabolic Panel Sent. kc6 13:09 CBC with Diff Sent. kc6 13:09 Magnesium Sent. kc6 13:09 NT PRO-BNP Sent. kc6 13:09 PT-INR Sent. kc6 13:09 Troponin HS Sent. kc6 13:31 Inserted saline lock: 22 gauge in left upper arm, using aseptic technique. Blood kb3 collected. 14:33 No provider procedures requiring assistance completed. Patient maintains SpO2 hb saturation greater than 95% on room air. 18:55 intact, bleeding controlled, No redness/swelling at site. kb3 Administered Medications: 13:15 Drug: SOLU-Medrol (methylPrednisoLONE) 125 mg Route: IVP; Site: left upper arm; kb3 14:31 Follow up: Response: No adverse reaction hb 13:15 Drug: Benadryl (diphenhydrAMINE) 25 mg Route: IVP; Site: left upper arm; kb3 14:31 Follow up: Response: No adverse reaction hb 13:15 Drug: morphine 4 mg Route: IVP; Infused Over: 4 mins; Site: left upper arm; kb3 14:32 Follow up: Response: Pain is decreased hb 15:05 Drug: Lasix (furosemide) 40 mg Route: IVP; Site: left upper arm; hb 16:00 Follow up: Response: No adverse reaction kb3 15:05 Drug: morphine 4 mg Route: IVP; Infused Over: 4 mins; Site: left upper arm; hb 16:00 Follow up: Response: No adverse reaction; Pain is decreased kb3 15:05 Drug: hydrALAZINE 10 mg Route: IVP; Site: left upper arm; hb 16:15 Follow up: Response: No adverse reaction; Blood pressure is lowered kb3 17:53 CANCELLED (Physician Discretion): Hydrocodone-Acetaminophen (7.5 mg-325 mg) 1 tabs PO cp once; RASS on ADMIN: Combtv4, Very Agttd3, Agttd2, Rstlss1, AlertClm0, Drwsy-1, Lt Sdtn-2, Mod Sdtn-3, Dp Sdtn-4, UnArsble-5 18:14 Drug: morphine 4 mg Route: IVP; Infused Over: 4 mins; Site: left upper arm; kb3 18:53 Follow up: Response: No adverse reaction; Pain is decreased kb3 18:54 Not Given (Did not meet parameterss): hydrALAZINE 10 mg IVP once; if systolic pressure kb3 >180 Medication: 14:33 VIS not applicable for this client. hb Outcome: 17:55 Discharge ordered by MD. cp 18:55 Discharged to home via wheelchair, with family. kb3 18:55 Condition: improved 18:55 Discharge instructions given to patient, Instructed on discharge instructions, follow up and referral plans. medication usage, Demonstrated understanding of instructions, follow-up care, medications. 18:56 Patient left the ED. kb3 Signatures: Dispatcher [employer] JENN Sergio Jessie mr ConcepcionGracia 1 Justus Neil PA PA Tata Mendez RN RN hb Jesica Ramos, RN RN jl7 Madyson Mills kc6 Ava Mabry, RN RN kb3
[2021-12-28 21:09] VITALS: TEMP 97.2
[2021-12-28 21:41] VITALS: BP 175/97; O2SAT 97
--- NOTE | 2021-12-29 10:40 | EKG ---
Test Date: 2021-12-28 Test Time: 10:59:10 [employer]: JR Hairston MEASUREMENT RESULTS: Intervals: Rate: 51 [place]: 164 QRSD: 86 QT: 504 QTc: 464 [place]: P: 90 [place]: 164 QRS: 1 T: 23 INTERPRETIVE STATEMENTS: Sinus bradycardia Left ventricular hypertrophy with repolarization abnormality Abnormal ECG Compared to ECG 12/02/2021 12:16:42 Early repolarization now present Atrial premature complex(es) no longer present T-wave abnormality no longer present Possible ischemia no longer present Electronically Signed On 12-29-21 10:36:18 CDT by Per Crane
== END 2021-12-28 18:56 | disposition home or self-care (01) ==
LOC: ER 10:53
DX: R07.9 Chest pain, unspecified (principal); L50.9 Urticaria, unspecified; I11.0 Hypertensive heart disease with heart failure; Z21 Asymptomatic human immunodeficiency virus [HIV] infection status; Z88.1 Allergy status to other antibiotic agents; Z88.2 Allergy status to sulfonamides; Z88.5 Allergy status to narcotic agent; Z88.8 Allergy status to other drugs, medicaments and biological substances
CPT/HCPCS: 93005; 85025; 80048; 36415; 83735; 85610; 84484 ×2; 83880; 71045; 96375; 96374; 99285; J0360; J1940; J1200; J2930

== ENCOUNTER 2022-01-01 07:35 | Emergency (ER) | payer OTHER ==
--- OUTSIDE RECORDS SUMMARY | 2022-01-01 07:45 | XMS REPORT | Continuity of Care Document ---
:1955 Author Organization [facility] t Address [address] [place] [address] Care Team Providers Name Role Phone Urmila Rahman Primary Care Physician Mike Lund Attending Clinician Unavailable ELAN LIRA Attending Clinician Unavailable SANTIAGO CARDENAS Attending Clinician Unavailable Bill GUO Attending Clinician Unavailable Bill Rose Attending Clinician [facility] Attending Clinician Unavailable Santiago Sanchez Attending Clinician Beverly Layton MD Attending Clinician Eliseo Arce MD Attending Clinician Carol Ann [employer], Sarai Lieberman Attending Clinician [phone] Ashly Pelletier MA Attending Clinician Unavailable Robbi [...] Policy Number Effective Date Expiration Date S [facility] COMMUNITY [id number] 2012 STARPLUS OON 00:00:00 EXCEPT [facility] DUAL [id number] 2020 COMP HMO D SNP 00:00:00 MEDICAID OF [place] [id number] 2020 00:00:00 Problems Condition Condition Condition Status Onset Resolution Last Treating Co mments Source Name Details Category Date Date Treatment Clinician Date Gastropare Gastropare Disease Active Overview : Methodi sis sis 4-[address] 00:00: [facility] of this [facility] 00 note l might be different from the original. Added automatic ally from request for surgery [id number] Dysphagia Dysphagia Disease Active Overview: Methodi 4-[address] 00:00: g of this [facility]ospita 00 note l might be different from the original. 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 sulfamet DA Active SV N/V H[facility] hoxazole 1- Clear 00:00: Garcia [facility] trimetho DA Active SV [facility] prim - Clear 00:00: Garcia [facility] Metoclop Propensi Active UT ramide ty to 12-12 Health adverse 00:00: reaction 00 s BUTORPHA DRUG Active Unknown-Cmnt Un mtat NOL INGREDI 11-25 ity of 00:00: [place] [facility] Butorpha Drug Active Unknown - Unive rs nol Allergy See comments 11-25 ity of 00:00: [place] [facility] Sulfamet Propensi Active UT hoxazole [...] nknown reaction FENTANYL DRUG Active High Hives Univers INGREDI 2-08 ity of 00:00: [place] 00 Medical Branch TRIMETHO DRUG Active Hives Univers PRIM INGREDI 2-08 ity of 00:00: [place] [facility] Fentanyl Drug Active Other - See Unknown Un matt Allergy comments 06-30 reaction ity o f 00:00: [place] 00 Medical Branch Trimetho Propensi Active Hives 2018-0 Univer s prim ty to 2-08 ity of adverse 00:00: [place] reaction 00 Medical s Branch Metoclop Propensi Active Method i ramide ty to [address] Hcl adverse 00:00: Hospita reaction 00 [...] TARTRATE 00:00: [place] 00 Medical Branch Butorpha Allergy Active Hallucinatio Other U T nol to ns 2-14 reaction( Health substanc 00:00: s): e 00 confusion , Hallucina tions, Hallucina tions, Hallucina tions, Unknown - See comments Butorpha Propensi Active Hallucinatio Univers nol ty to ns 2-14 ity of Tartrate adverse 00:00: [place] reaction 00 Medical s to Branch drug Bactrim Bactrim Active Get [place] Family History Family Member Diagnosis Comments Start Date Stop Date Source Natural father Hypertension [facility] Natural father Kidney disease Method ist [facility] Natural mother [facility] Social History Social Habit Start Date Stop Date Quantity Comments Source History [facility] Alcohol Comment History of tobacco Smoker Method ist use Hospital History [facility] Baptism Alcohol Frequency Hospita l History [facility] Baptism Alcohol Std Drinks Hospit al History [facility] Baptism Alcohol Binge Hospital Exposure to 2021-12-02 2021-12-12 Not sure University SARS-CoV-2 (event) 00:00:00 23:54:00 [facility] [place] Alcohol intake 2021-07-14 2021-07-14 Ex-drinker [facility] 00:00:00 00:00:00 (finding) Cigarettes smoked 2020-09-05 2020-09-[address] current (pack per 00:00:00 00:00:00 Hospita l day) - Reported Cigarette 2020-09-05 2020-09-05 Baptism pack-years 00:00:00 00:00:00 Hospital Tobacco use and 2020-08-06 2020-08-06 Former smokeless Uni versity of exposure 00:00:00 00:00:00 tobacco user [facility] Tobacco Comment 2015-02-14 2015-02-14 Smokes approx 1-2 Un iversity of 00:00:00 00:00:00 cigarettes per [facility] day when she Branch smokes Sex [birth year] [facility] 00:00:00 00:00:00 Smoking Status Start Date Stop Date Source Ex-smoker 2020-08-06 00:00:00 2020-08-06 00:00:00 [facility] Medications Ordered Filled Start Stop Current Ordering Indication Dosage Frequency Signature Comments Components Source Medication Medication Date Date Medication? Clinician (SIG) Name Name methocarbam No 500mg 500 mg, U nivers oL 12-13 Oral, ity of (ROBAXIN) 07:45: 06:35 ONCE, 1 [place] tablet 500 [place] :00 dose, On Medic al mg [facility] 12/13/21 at 0245, Routine ketorolac No 30mg 30 mg, Unive rs (TORADOL) 12-13 Intramuscu ity of injection 07:45: 06:34 lar, ONCE, [place] 30 mg 00 :00 1 dose, On Medical [facility] 12/13/21 at 0245, JOE naproxen 2021-0 Yes [id number] 500mg Take 1 U nivers (NAPROSYN) 7-24 tablet by ity of 500 mg 00:00: mouth in [place] tablet 00 the Medical morning Branch and 1 tablet in the evening. Take with meals. methocarbam 2021-0 Yes [id number] 500mg Take 1 Univers oL 500 mg [...] tablet 47 Medical Branch buPROPion 2021-0 Yes [id number] 150mg Take 1 U nivers XL 4-12 tablet by ity of (WELLBUTRIN 00:00: mouth [place] XL) 150 mg 00 daily. Medical 24 hr Branch tablet busPIRone 2021-0 Yes [id number] 30mg Take 1 Un matt 30 mg 4-12 tablet by ity of tablet 00:00: mouth 2 [place] 00 (two) Medical times Branch daily. SERTraline 2021-0 Yes [id number] 200mg Take 2 Univers 100 mg 4-12 tablets by ity of tablet 00:00: mouth [place] 00 daily. Medical Branch buPROPion 2021-0 Yes [id number] 150mg Take 1 U nivers XL 4-12 tablet by ity of (WELLBUTRIN 00:00: mouth [place] XL) 150 mg 00 daily. Medical 24 hr Branch tablet busPIRone 2021-0 Yes [id number] 30mg Take 1 Un matt 30 mg 4-12 tablet by ity of tablet 00:00: mouth 2 [place] 00 (two) Medical times Branch daily. SERTraline 2021-0 Yes [id number] 200mg Take 2 Univers 100 mg 4-12 tablets by ity of tablet 00:00: mouth [place] 00 daily. Medical Branch raltegravir 2021-0 Yes [id number] 400mg Take 1 Univers (ISENTRESS) 3-28 tablet by ity of 400 mg 00:00: mouth 2 [place] tablet 00 (two) Medical times Branch daily. raltegravir Yes [id number] 400mg Take 1 Univers (ISENTRESS) 3-28 tablet by ity of 400 mg 00:00: mouth 2 [place] tablet 00 (two) Medical times Branch daily. raltegravir Yes [id number] 400mg Take 1 Univers (ISENTRESS) 3-28 tablet by ity of 400 mg 00:00: mouth 2 [place] tablet 00 (two) Medical times Branch daily. LORazepam 1 Yes [id number] 1mg Take 1 Univers mg tablet 3-21 [...] times a tablet day. buPROPion 2021- No [id number] 150mg Take 1 Univers XL -24 04-12 tablet by ity of (WELLBUTRIN 00:00: 00:[place] XL) 150 mg 00 :00 daily. Medical 24 hr Branch tablet busPIRone 2021- No [id number] 30mg Take 1 U nivers 30 mg -24 04-12 tablet by ity of tablet 00:00: 00:00 mouth 2 [place] 00 :00 (two) Medical times Branch daily. SERTraline 2021- No [id number] 200mg Take 2 Univers 100 mg 1-24 04-12 tablets by ity of tablet 00:00: 00:00 mouth [place] 00 :00 daily. Medical Branch emtricitabi Yes [id number] Take one Univers ne-tenofovi 1-20 po daily ity of r alafen 00:00: [place] (DESCOVY) 00 Medical tablet Branch emtricitabi Yes [id number] Take one Univers ne-tenofovi 1-20 po daily ity of r alafen 00:00: (DESCOVY) Medical tablet Branch emtricitabi Yes [id number] Take one Univers ne-tenofovi 1-20 po daily ity of r alafen 00:00: (DESCOVY) Medical tablet Branch metoprolol Yes [id number] Take 1 UT tartrate 7-26 tablet Health (Lopressor) 00:00: (100 mg 100 MG 00 total) by tablet mouth 2 (two) times a day AND 0.5 tablets (50 mg total) every night. metoprolol Yes [id number] Take 1 [place] tartrate 7-26 tablet Health [...] (affected area in groin) hydrALAZINE Yes 50mg Q.[id number] Take 50 mg Methodi (APRESOLINE 7-[id number] mouth [address] ) 50 MG [...] Hospita tablet 25 daily. l nystatin-tr Yes [id number] Apply to [facility] 11-25 area(s) 3 ity of cream 00:00: (three) [place] 00 times Medical daily. Branch nystatin-tr Yes [id number] Apply to [facility] 11-25 area(s) 3 ity of cream 00:00: (three) [place] 00 times Medical daily. Branch nystatin-tr 0 Yes [id number] Apply to [facility] 11-25 area(s) 3 ity of cream 00:00: (three) [place] 00 times Medical daily. Branch budesonide- 2020-0 2021- No 1{puff} QD Inhale 1 Methodi formoteroL 6-25 06-[address] (SYMBICORT) 14:37: 00:00 morning. H ospita 160-4.5 02 :00 l mcg/actuati on inhaler hydrALAZINE 0 Yes [id number] 50mg Q.[id number] Take 1 UT (Apresoline 6-11 [id number] tablet (50 Health ) 50 MG 00:00: 3D mg total) tablet 00 by mouth 3 (three) times a day. hydrALAZINE 0 Yes [id number] 50mg Q.[id number] Take 1 UT (Apresoline 6-11 [id number] tablet (50 Health ) 50 MG 00:00: [...] % 00:00: ointment 00 nystatin 2020- No [id number] Q.25D Take 5 mL Methodi (MYCOSTATIN 10-06 [...] ia 4-10 (Same as: l 14:00: Zoloft) [place] pantoprazol No Notes: Caesar lisa e 4-10 Tablet l 14:00: should not [place] 00 be chewed or crushed. (Same as: [...] ia 4-10 (Same as: l 14:00: Norvasc) [place] 00 emtricitabi No Notes: Caesar lisa ne [...] ia 4-10 (Same as: l 14:00: Zoloft) [place] 00 pantoprazol No Notes: Caesar lisa e 4-10 Tablet l 14:00: should not Marty 00 be chewed or crushed. (Same as: Protonix) Amiodarone No Notes: Memor ia 4-10 (Same as: l 14:00: Cordarone) Marty 00 Amlodipine No Notes: Memor ia 4-10 (Same as: l 14:00: Norvasc) [place] 00 emtricitabi No Notes: Caesar lisa ne 200 MG / 4-10 (Same as: l tenofovir 14:00: Descovy) Herm ariel alafenamide 00 Non-formul 25 MG Oral nancy Tablet [Descovy] Sertraline No Notes: Memor ia 4-10 (Same as: l 14:00: Zoloft) Marty 00 pantoprazol No Notes: Caesar lisa e 4-10 Tablet l 14:00: should not [place] 00 be chewed or crushed. (Same as: Protonix) Amiodarone No Notes: Memor ia 4-10 (Same as: l 14:00: Cordarone) Mullan 00 Sucralfate No Notes: May M emoria 4-10 interfere l 02:00: w/enteral Mullan 00 feeds - Take 1 hr before [...] M emoria 4-10 interfere l 02:00: w/enteral [place] 00 feeds - Take 1 hr before or 2 hr after antacids, dairy pdt, meals & minerals - On empty stomach. For patients unable to swallow tablet, dissolve in 10mL - 30mL of water or juice and stir before giving. (Same As: Carafate) Saline No Notes: Memoria Flush 0.9% 4-10 (Same as: l 02:00: BD [place] Posiflush) Eliquis No Notes: Memoria 4-10 Same as: l 02:00: Eliquis [place] 00 Hydralazine No Notes: Caesar lisa Hydrochlori 4-10 (Same as: l de 50 MG 02:00: Apresoline Her mitchell Oral Tablet 00 ) May interfere w/enteral feedings Take With Food Sucralfate No Notes: May M emoria 4-10 interfere l 02:00: w/enteral Mullan 00 feeds - Take 1 hr before [...] M emoria 4-10 interfere l 02:00: w/enteral [place] 00 feeds - Take 1 hr before [...] 0.9% 4-10 (Same as: l 02:00: BD [place] Posiflush) Eliquis No Notes: Memoria 4-10 Same as: l 02:00: Eliquis Hydralazine No Notes: Caesar lisa Hydrochlori 4-10 (Same as: l de 50 MG 02:00: Apresoline Her mitchell Oral Tablet 00 ) May interfere w/enteral feedings Take With Food Sucralfate No Notes: May M emoria 4-10 interfere l 02:00: w/enteral Mullan 00 feeds - Take 1 hr before [...] not exceed l #3 00:12: 4gm/day of [place] acetaminop hen. (Same as: Tylenol with Codeine # 3) acetaminoph No Notes: Do M emoria en-codeine 4-10 not exceed l #3 00:12: 4gm/day of [place] acetaminop hen. (Same as: Tylenol with Codeine [...] tartrate 4-09 tab, l 22:00: Route: PO, [place] 00 Drug form: TAB, BID, Dosing Weight [...] oria 4-09 tab, l 22:00: Route: PO, [place] Drug form: TAB, BID, Dosing Weight 97.273, kg, Start date: 08/29/20 17:00:00 CDT, Duration: 30 day, Stop date: 09/28/20 9:00:00 CDT metoprolol 1-0 No 100 mg, 1 Me moria tartrate 4-09 tab, l 22:00: Route: PO, [place] Drug form: TAB, BID, Dosing Weight 97.273, [...] oria 4-09 tab, l 22:00: Route: PO, [place] 00 Drug form: TAB, BID, Dosing Weight [...] l Tablet 22:00: Route: PO, Skylar nn [[facility]] 00 Drug form: TAB, BID, Dosing [...] tartrate 4-09 tab, l 22:00: Route: PO, [place] Drug form: TAB, BID, Dosing Weight 97.273, [...] tartrate 4- tab, l 22:00: Route: PO, [place] 00 Drug form: TAB, BID, Dosing Weight [...] Notes: Memoria 4-09 (Same l 17:07: as:MORPhin [place] 00 e Sulfate) Morphine No Notes: Memoria 4-09 (Same l 17:07: as:MORPhin [place] 00 e Sulfate) Morphine No Notes: Memoria 4-09 (Same l 17:07: as:MORPhin [place] 00 e Sulfate) Morphine 2020-0 No Notes: Memoria 4- (Same l 17:07: as:MORPhin Marty 00 e Sulfate) Morphine 2020-0 No Notes: Memoria 4- (Same l 17:07: as:MORPhin Marty 00 e Sulfate) Morphine 2020-0 No Notes: Memoria 4- (Same l 17:07: as:MORPhin [place] 00 e Sulfate) buPROPion 2020-0 No 150 [...] tab, PO, l oral 15:27: Daily, # [place] enteric 00 30 tab, 0 coated Refill(s), tablet Pharmacy: [facility] 149, 162.56, cm, 08/29/20 5:30:00 CDT, Height, 97.273, kg, 08/29/20 5:30:00 CDT, Weight pantoprazol 2020-0 Yes 40 mg = 1 M emoria e 40 mg 4-09 tab, PO, l oral 15:27: Daily, # [place] enteric 00 30 tab, 0 coated Refill(s), tablet Pharmacy: [facility] 149, 162.56, cm, 08/29/20 5:30:00 CDT, Height, 97.273, kg, 08/29/20 5:30:00 CDT, Weight pantoprazol 2020-0 Yes 40 mg = 1 M emoria e 40 mg 4-09 tab, PO, l oral 15:27: Daily, # Marty enteric 00 30 tab, 0 coated Refill(s), tablet Pharmacy: [facility] 149, 162.56, cm, 08/29/20 5:30:00 CDT, Height, 97.273, kg, 08/29/20 5:30:00 CDT, Weight pantoprazol 2020-0 Yes 40 mg = 1 M emoria e 40 mg 4-09 tab, PO, l oral 15:27: Daily, # Marty enteric 00 30 tab, 0 coated Refill(s), tablet Pharmacy: [facility] 149, 162.56, cm, 08/29/20 5:30:00 CDT, Height, 97.273, kg, 08/29/20 5:30:00 CDT, Weight pantoprazol 2020-0 Yes 40 mg = 1 M emoria e 40 mg 4-09 tab, PO, l oral 15:27: Daily, # [place] enteric 00 30 tab, 0 coated Refill(s), tablet Pharmacy: [facility] 149, 162.56, cm, 08/29/20 5:30:00 CDT, Height, 97.273, kg, 08/29/20 5:30:00 CDT, Weight pantoprazol 2020-0 Yes 40 mg = 1 M emoria e 40 mg 4-09 tab, PO, l oral 15:27: Daily, # [place] enteric 00 30 tab, 0 coated Refill(s), tablet Pharmacy: [facility] 149, 162.56, cm, 08/29/20 5:30:00 CDT, Height, 97.273, kg, 08/29/20 5:30:00 CDT, Weight pantoprazol 2020-0 Yes 40 mg = 1 M emoria e 40 mg 4-09 tab, PO, l oral 15:27: Daily, # Marty enteric 00 30 tab, 0 coated Refill(s), tablet Pharmacy: [facility] 149, 162.56, cm, 08/29/20 5:30:00 CDT, Height, 97.273, kg, 08/29/20 5:30:00 CDT, Weight pantoprazol 2020-0 No 40 mg = 1 M emoria e 40 mg 4-09 tab, PO, l oral 15:26: Daily, # [place] enteric 00 30 tab, 0 coated Refill(s) tablet sucralfate 2020-0 Yes 1 gm = 1 Mem oria 1 g oral 4-09 tab, PO, l tablet 15:26: Q12H, # 28 Skylar nn 00 tab, 0 Refill(s), Pharmacy: [facility] 149, 162.56, cm, 08/29/20 5:30:00 [...] Skylar nn 00 tab, 0 Refill(s), Pharmacy: [facility] 149, 162.56, cm, 08/29/20 5:30:00 CDT, Height, 97.273, kg, 08/29/20 5:30:00 CDT, Weight pantoprazol 2020-0 No 40 mg = 1 M emoria e 40 mg 4-09 tab, PO, l oral 15:26: Daily, # [place] enteric 00 30 tab, 0 coated Refill(s) tablet sucralfate 2020-0 Yes 1 gm = 1 Mem oria 1 g oral 4-09 tab, PO, l tablet 15:26: Q12H, # 28 Skylar nn 00 tab, 0 Refill(s), Pharmacy: [place] [id number], 162.56, cm, 08/29/20 5:30:00 CDT, Height, 97.273, [...] Skylar nn 00 tab, 0 Refill(s), Pharmacy: [facility] 149, 162.56, cm, 08/29/20 5:30:00 [...] Skylar nn 00 tab, 0 Refill(s), Pharmacy: [facility] 149, 162.56, cm, 08/29/20 5:30:00 [...] Skylar nn 00 tab, 0 Refill(s), Pharmacy: [facility] 149, 162.56, cm, 08/29/20 5:30:00 [...] Skylar nn 00 tab, 0 Refill(s), Pharmacy: [facility] 149, 162.56, cm, 08/29/20 5:30:00 CDT, Height, 97.273, kg, 08/29/20 5:30:00 CDT, Weight Saline No Notes: Memoria Flush 0.9% 08-29 (Same as: l 15:25: BD [place] Posiflush) Lorazepam No Notes: Memori a - (Same as: l 15:25: Ativan) Marty Saline No Notes: Memoria Flush 0.9% 4-09 (Same as: l 15:25: BD [place] 00 Posiflush) Lorazepam No Notes: Memori a 4-09 (Same as: l 15:25: Ativan) Saline No Notes: Memoria Flush 0.9% 4-09 (Same as: l 15:25: BD [place] 00 Posiflush) Saline No Notes: Memoria Flush [...] Drug form: l mg + 15:00: INJ, Mullan Dosing Weight 97.3, kg, Start date: 08/29/20 10:00:00 CDT, Stop date: 08/29/20 11:00:00 CDT Isuprel HCl 2020-0 No Route: IV, Memoria (ANES) 0.2 08-29 Drug form: l mg + 15:00: INJ, Mullan Dosing Weight 97.3, kg, Start date: 08/29/20 [...] 08-29 Drug form: l 14:49: INJ, ONCE, Mullan 00 Stop date: 08/29/20 9:49:00 CDT heparin 202-0 No Route: IV, Caesar lisa (ANES) 08-29 Drug form: l 14:49: INJ, ONCE, Stop date: 08/29/20 9:49:00 CDT heparin 202-0 No Route: IV, Caesar lisa (ANES) 08-29 Drug form: l 14:49: INJ, ONCE, Mullan 00 Stop date: 08/29/20 9:49:00 CDT heparin 202-0 No Route: IV, Caesar lisa (ANES) 08-29 Drug form: l 14:49: INJ, ONCE, Mullan 00 Stop date: 08/29/20 9:49:00 CDT heparin [...] 08-29 Drug form: l 14:29: INJ, ONCE, Mullan 00 Stop date: 08/29/20 9:29:00 CDT propofol 2021-0 No Route: IV, Mem oria (ANES) 08-29 Drug form: l 14:29: INJ, ONCE, Stop date: 08/29/20 9:29:00 CDT propofol 2021-0 No Route: IV, Mem oria (ANES) 08-29 Drug form: l 14:29: INJ, ONCE, Stop date: 08/29/20 9:29:00 CDT propofol 2021-0 No Route: IV, Mem oria (ANES) 08-29 Drug form: l 14:29: INJ, ONCE, Mullan 00 Stop date: 08/29/20 9:29:00 CDT propofol [...] 08-29 Drug form: l 14:18: INJ, ONCE, Mullan 00 Stop date: 08/29/20 9:18:00 CDT heparin 202-0 No Route: IV, Caesar lisa (ANES) 08-29 Drug form: l 14:18: INJ, ONCE, Marty 00 Stop date: 08/29/20 9:18:00 CDT heparin 202-0 No Route: IV, Caesar lisa (ANES) 08-29 Drug form: l 14:18: INJ, ONCE, Mullan 00 Stop date: 08/29/20 9:18:00 CDT heparin 2021-0 No Route: IV, Caesar lisa (ANES) 08-29 Drug form: l 14:18: INJ, ONCE, Mullan 00 Stop date: 08/29/20 9:18:00 CDT Flumazenil 1-0 No 0.2 mg, Caesar lisa 08-29 Route: l 14:01: IVP, PRN, Mullan 00 Dosing Weight 97.273, kg, PRN Benzodiaze [...] ia 08-29 Route: l 14:01: IVP, ONCE, Mullan Dosing Weight 97.273, kg, PRN Nausea & Vomiting, Start date: 08/29/20 9:01:00 CDT Labetalol 2021-0 No 10 mg, Memori a 08-29 Route: l 14:01: IVP, Mullan 00 Q5Min, Dosing Weight 97.273, kg, PRN [...] 08-29 Route: PO, l 14:01: Drug form: Mullan 00 TAB, ONCE, Dosing Weight 97.273, kg, [...] lisa 08-29 Route: l 14:01: IVP, PRN, Mullan 00 Dosing Weight 97.273, kg, PRN Benzodiaze pine Reversal, Initial dose, Start date: 08/29/20 9:01:00 CDT, Duration: 30 day, Stop date: 09/28/20 9:00:00 CDT Naloxone 1-0 No 0.4 mg, Memori a 08-29 Route: l 14:01: IVP, Mullan 00 Q2MIN, Dosing Weight 97.273, kg, PRN [...] oria ne 08-29 Route: l 14:01: IVP, Mullan 00 Q5Min, Dosing Weight 97.273, kg, PRN [...] Memori a 08-29 Route: l 14:01: IVP, Mullan 00 Q2MIN, Dosing Weight 97.273, kg, PRN Narcotic Reversal, Start date: 08/29/20 9:01:00 CDT, Duration: 8 doses or times, Stop date: Limited # of times Ondansetron 2020-0 No 4 mg, Memor ia 08-29 Route: l 14:01: IVP, ONCE, Mullan 00 Dosing Weight 97.273, kg, PRN Nausea & Vomiting, Start date: 08/29/20 9:01:00 CDT Labetalol 1-0 No 10 mg, Memori a 08-29 Route: l 14:01: IVP, Mullan 00 Q5Min, Dosing Weight 97.273, kg, PRN [...] oria ne 08-29 Route: l 14:01: IVP, Mullan 00 Q5Min, Dosing Weight 97.273, kg, PRN [...] oria ne 08-29 Route: l 14:01: IVP, Mullan 00 Q5Min, Dosing Weight 97.273, kg, PRN Pain Score 7-10, Start date: 08/29/20 9:01:00 CDT, Duration: 4 doses or times, Stop date: Limited # of times Flumazenil 2021-0 No 0.2 mg, Caesar lisa 08-29 Route: l 14:01: IVP, PRN, Mullan 00 Dosing Weight 97.273, kg, PRN Benzodiaze [...] lisa 08-29 Route: l 14:01: IVP, PRN, Mullan 00 Dosing Weight 97.273, kg, PRN Benzodiaze pine Reversal, Initial dose, Start date: 08/29/20 9:01:00 CDT, Duration: 30 day, Stop date: 09/28/20 9:00:00 CDT Ondansetron 2021-0 No 4 mg, Memor ia 08-29 Route: l 14:01: IVP, ONCE, Mullan 00 Dosing Weight 97.273, kg, PRN Nausea [...] Memori a 08-29 Route: l 14:01: IVP, Mullan 00 Q5Min, Dosing Weight 97.273, kg, PRN Elevated BP, Start date: 08/29/20 9:01:00 CDT, Duration: 5 doses or times, Stop date: Limited # of times Acetaminoph 2020-0 No 1,000 mg, M emoria en 08-29 Route: PO, l 14:01: Drug form: Mullan 00 TAB, ONCE, Dosing Weight 97.273, kg, [...] lisa 08-29 Route: l 14:01: IVP, PRN, Mullan 00 Dosing Weight 97.273, kg, PRN Benzodiaze [...] Memori a 08-29 Route: l 14:01: IVP, Mullan 00 Q5Min, Dosing Weight 97.273, kg, PRN Elevated BP, Start date: 08/29/20 9:01:00 CDT, Duration: 5 doses or times, Stop date: Limited # of times Acetaminoph 0 No 1,000 mg, M emoria en 08-29 Route: PO, l 14:01: Drug form: Mullan 00 TAB, ONCE, Dosing Weight 97.273, kg, [...] oria ne 08-29 Route: l 14:01: IVP, Mullan 00 Q5Min, Dosing Weight 97.273, kg, PRN Pain Score 7-10, Start date: 08/29/20 9:01:00 CDT, Duration: 4 doses or times, Stop date: Limited # of times lidocaine No Route: IV, Me moria (ANES) 08-29 Drug form: l 13:52: INJ, ONCE, Marty 00 Stop date: 08/29/20 8:52:00 CDT rocuronium [...] 08-29 Drug form: l 13:42: INJ, ONCE, Mullan Stop date: 08/29/20 8:42:00 CDT fentaNYL 2020-0 No Route: IV, Mem oria (ANES) 08-29 Drug form: l 13:42: INJ, ONCE, Mullan 00 Stop date: 08/29/20 8:42:00 CDT fentaNYL [...] Drug form: l 10 13:15: INJ, Start Mullan microgram date: 08/29/20 8:15:00 CDT, Stop date: 08/29/20 9:15:00 CDT norepinephr 2020-0 No Route: IV, Memoria ine (ANES) 08-29 Drug form: l 10 13:15: INJ, Start Mullan microgram date: 08/29/20 8:15:00 CDT, Stop date: 08/29/20 9:15:00 CDT norepinephr 2020-0 No Route: IV, Memoria ine (ANES) 08-29 Drug form: l 10 13:15: INJ, Start Marty microgram date: 08/29/20 8:15:00 CDT, Stop date: 08/29/20 9:15:00 CDT norepinephr 2020-0 No Route: IV, Memoria ine (ANES) 4- Drug form: l 10 13:15: INJ, Start Mullan microgram 00 date: 08/29/20 8:15:00 CDT, Stop date: 08/29/20 9:15:00 CDT norepinephr 2020-0 No Route: IV, Memoria ine (ANES) - Drug form: l 10 13:15: INJ, Start Marty microgram 00 date: 08/29/20 8:15:00 CDT, Stop date: 08/29/20 9:15:00 CDT norepinephr 2020-0 No Route: IV, Memoria ine (ANES) - Drug form: l 10 13:15: INJ, Start Mullan microgram date: 08/29/20 8:15:00 CDT, Stop date: 08/29/20 9:15:00 CDT Sodium 2020-0 No Route: IV, Memor ia Chloride 4-09 Total l 0.9% IV 12:30: Volume: Mullan (ANES) 1000 00 1,000, mL Start date: 08/29/20 7:30:00 CDT, Stop date: 08/29/20 8:30:00 CDT Sodium 2020-0 No Route: IV, Memor ia Chloride 4-09 Total l 0.9% IV 12:30: Volume: Marty (ANES) 1000 00 1,000, mL Start date: 08/29/20 7:30:00 CDT, Stop date: 08/29/20 8:30:00 CDT Sodium 202-0 No Route: IV, Memor ia Chloride 4-09 Total l 0.9% IV 12:30: Volume: Mullan (ANES) 1000 00 1,000, mL Start date: 08/29/20 7:30:00 CDT, Stop date: 08/29/20 8:30:00 CDT Sodium 202-0 No Route: IV, Memor ia Chloride 4-09 Total l 0.9% IV 12:30: Volume: Marty (ANES) 1000 00 1,000, mL Start date: 08/29/20 7:30:00 CDT, Stop date: 08/29/20 8:30:00 CDT Sodium 202-0 No Route: IV, Memor ia Chloride 4-09 Total l 0.9% IV 12:30: Volume: Mullan (ANES) 1000 00 1,000, mL Start date: 08/29/20 7:30:00 CDT, Stop date: 08/29/20 8:30:00 CDT Sodium 2021-0 No Route: IV, Memor ia Chloride 4-09 Total l 0.9% IV 12:30: Volume: Mullan (ANES) 1000 00 1,000, mL Start date: [...] PO, l Hydrochlori 11:42: Q24H, # 30 Mullan de 150 MG 00 tab, 0 Extended Refill(s) Release Tablet 24 HR Yes 150 mg = 1 Memori a Bupropion -09 tab, PO, l Hydrochlori 11:42: Q24H, # 30 Mullan de 150 MG 00 tab, 0 Extended Refill(s) Release Tablet 24 HR Yes 150 mg = 1 Memori a Bupropion -09 tab, PO, l Hydrochlori 11:42: Q24H, # 30 Marty de 150 MG 00 tab, 0 Extended Refill(s) Release Tablet 24 HR Yes 150 mg = 1 Memori a Bupropion 4-09 tab, PO, l Hydrochlori 11:42: Q24H, # 30 Mullan de 150 MG 00 tab, 0 Extended Refill(s) Release Tablet apixaban Yes 5 mg, PO, Me moria MG Oral - Q12H, tab, l Tablet 11:41: 0 Marty [Eliquis] 00 Refill(s), For Atrial Fibrilatio n apixaban Yes 5 mg, PO, Me moria MG Oral - Q12H, tab, l Tablet 11:41: 0 Mullan [Eliquis] 00 Refill(s), For Atrial Fibrilatio n [...] - Q12H, tab, l Tablet 11:41: 0 Mullan [Eliquis] 00 Refill(s), For Atrial Fibrilatio n [...] tab, PO, l tablet 11:38: Daily, # Mullan 00 90 tab, 3 Refill(s) AMIODarone 2020-0 Yes 200 mg = 1 M emoria 200 mg oral 4-09 tab, PO, l tablet 11:38: Daily, # Marty 00 90 tab, 3 Refill(s) AMIODarone 0 Yes 200 mg = 1 M emoria 200 mg oral 4-09 tab, PO, l tablet 11:38: Daily, # Mullan 00 90 tab, 3 Refill(s) AMIODarone 2020-0 Yes 200 mg = 1 M emoria 200 mg oral 4-09 tab, PO, l tablet 11:38: Daily, # Mullan 00 90 tab, 3 Refill(s) AMIODarone 0 Yes 200 mg = 1 M emoria 200 mg oral 4-09 tab, PO, l tablet 11:38: Daily, # Mullan 00 90 tab, 3 Refill(s) normal 0 [...] Immunizations Ordered Filled Immunization Date Status Comments [facility] e Immunization Name Name PFIZER COVID-19 2020-07-23 Completed [facility] MRNA VACCINATION 00:00:00 [facility] PFIZER COVID-19 2020-07-02 Completed [facility] MRNA VACCINATION 00:00:00 [facility] Influenza Virus 2017-03-08 Completed Universit y of Vaccine 00:00:00 [facility] Influenza Virus 2017-03-08 Completed Universit y of Vaccine 00:00:00 [facility] Influenza Virus 2017-03-08 Completed Universit y of Vaccine 00:00:00 [facility] Influenza Virus 2014-01-30 Completed Universit y of Vaccine (3+ yrs) 00:00:00 [facility] dical Branch Pneumococcal 13 2014-01-30 Completed Universit y of Conjugate, PCV13 00:00:00 [facility] dical (Prevnar 13) Branch Influenza Virus 2014-01-30 Completed Universit y of Vaccine (3+ yrs) 00:00:00 [facility] dical Branch Pneumococcal 13 2014-01-30 Completed Universit y of Conjugate, PCV13 00:00:00 [facility] dical (Prevnar 13) Branch Influenza Virus 2014-01-30 Completed Universit y of Vaccine (3+ yrs) 00:00:00 [facility] dical Branch Pneumococcal 13 2014-01-30 Completed Universit y of Conjugate, PCV13 00:00:00 [facility] dical (Prevnar 13) Branch Pneumococcal 2012-02-16 Completed University o f Polysaccharide, 00:00:00 [facility] ical PPSV23 (PNEUMOVAX) Branch Influenza Virus 2012-02-16 Completed Universit y of Vaccine 00:00:00 [facility] PPD (TB) 2012-02-16 Completed University of 00:00:00 [facility] Pneumococcal 2012-02-16 Completed University o f Polysaccharide, 00:00:00 [facility] ical PPSV23 (PNEUMOVAX) Branch Influenza Virus 2012-02-16 Completed Universit y of Vaccine 00:00:00 [facility] PPD (TB) 2012-02-16 Completed University of 00:00:00 [facility] Pneumococcal 2012-02-16 Completed University o f Polysaccharide, 00:00:00 [facility] ical PPSV23 (PNEUMOVAX) Branch Influenza Virus 2012-02-16 Completed Universit y of Vaccine 00:00:00 [facility] PPD (TB) 2012-02-16 Completed University of 00:00:00 [facility] Hep B, Adol or Pedi 2011-09-01 Completed Unive rsity of Dosage 00:00:00 [facility] Hep B, Adol or Pedi 2011-09-01 Completed Unive rsity of Dosage 00:00:00 [facility] Hep B, Adol or Pedi 2011-09-01 Completed Unive rsity of Dosage 00:00:00 [facility] Hep B, Adol or Pedi 2011-03-17 Completed Unive rsity of Dosage 00:00:00 [facility] Hep B, Adol or Pedi 2011-03-17 Completed Unive rsity of Dosage 00:00:00 [facility] Hep B, Adol or Pedi 2011-03-17 Completed Unive rsity of Dosage 00:00:00 [facility] Influenza Virus 2011-02-10 Completed Universit y of Vaccine 00:00:00 [facility] Hep B, Adol or Pedi 2011-02-10 Completed Unive rsity of Dosage 00:00:00 [facility] Influenza Virus 2011-02-10 Completed Universit y of Vaccine 00:00:00 [facility] Hep B, Adol or Pedi 2011-02-10 Completed Unive rsity of Dosage 00:00:00 [facility] Influenza Virus 2011-02-10 Completed Universit y of Vaccine 00:00:00 [facility] Hep B, Adol or Pedi 2011-02-10 Completed Unive rsity of Dosage 00:00:00 [facility] PPD (TB) 2010-11-18 Completed University of 00:00:00 [facility] TDAP (ADACEL) 2010-11-18 Completed University of VACCINE 00:00:00 [facility] PPD (TB) 2010-11-18 Completed University of 00:00:00 [facility] TDAP (ADACEL) 2010-11-18 Completed University of VACCINE 00:00:00 [facility] PPD (TB) 2010-11-18 Completed University of 00:00:00 [facility] TDAP (ADACEL) 2010-11-18 Completed University of VACCINE 00:00:00 [facility] HEPATITIS A 2004-03-02 Completed University of 00:00:00 [facility] HEPATITIS A 2004-03-02 Completed University of 00:00:00 [facility] HEPATITIS A 2004-03-02 Completed University of 00:00:00 [facility] HEPATITIS A 2003-08-01 Completed University of 00:00:00 [facility] HEPATITIS A 2003-08-01 Completed University of 00:00:00 [facility] HEPATITIS A 2003-08-01 Completed University of 00:00:00 [facility] Pneumococcal 2001-10-04 Completed University o f Polysaccharide, 00:00:00 [facility] ical PPSV23 (PNEUMOVAX) [place] PPD (TB) 2001-10-04 Completed University of 00:00:00 [facility] Pneumococcal 2001-10-04 Completed University o f Polysaccharide, 00:00:00 [place] [facility] PPSV23 (PNEUMOVAX) Branch PPD (TB) 2001-10-04 Completed University of 00:00:00 [facility] Pneumococcal 2001-10-04 Completed University o f Polysaccharide, 00:00:00 [facility] ical PPSV23 (PNEUMOVAX) Branch PPD (TB) 2001-10-04 Completed University 00:00:00 [facility] Vital Signs Vital Name Observation Time Observation Value Comments Source Systolic blood 2021-12-13 06:39:53 170 mm[Hg] Univer sity of pressure [facility] Diastolic blood 2021-12-13 06:39:53 96 mm[Hg] Unive rsity of pressure [facility] Heart rate 2021-12-13 06:39:53 60 /min Universi ty of [facility] Respiratory rate 2021-12-13 06:39:53 18 /min [facility] O[facility] saturation in 2021-12-13 06:39:53 98 /min [facility] Arterial blood by [facility] Pulse oximetry Branch Body temperature 2021-12-13 04:57:00 36.56 Amina Univ ersity of [facility] Body height 2021-12-13 04:57:00 162.6 cm Universi ty of [facility] Body weight 2021-12-13 04:57:00 90.719 kg Universi ty [facility] BMI 2021-12-13 04:57:00 34.33 kg/m2 Universi ty [facility] Systolic blood 2021-08-21 13:13:00 191 mm[Hg] Univer sity of pressure [facility] Diastolic blood 2021-08-21 13:13:00 99 mm[Hg] Unive rsity of pressure [facility] Heart rate 2021-08-21 13:13:00 52 /min Universi ty of [facility] Body temperature 2021-08-21 13:11:00 36.5 Amina Univ ersity of [facility] Respiratory rate 2021-08-21 13:11:00 16 /min Univ ersity of [facility] Body height 2021-08-21 13:11:00 162.6 cm Universi ty of [facility] Body weight 2021-08-21 13:11:00 93.759 kg Universi ty of [facility] BMI 2021-08-21 13:11:00 35.48 kg/m2 [facility] Oxygen saturation in 2021-08-21 13:11:00 95 /min [facility] Arterial blood by [facility] Pulse oximetry Branch Systolic blood 2021-07-14 15:18:00 142 mm[facility]Hg[facility] Diastolic blood 2021-07-14 15:18:00 76 mm[facility]Hg] [facility] Heart rate 2021-07-14 15:18:00 61 [facility] Body height 2021-07-14 15:18:00 162.6 [facility] 2021-07-14 15:18:00 94.802 [facility] BMI 2021-07-14 15:18:00 35.87 kg/m2 [facility] Systolic blood 2020-12-08 15:48:00 125 mm[Hg] Method [facility] pressure Diastolic blood 2020-12-08 15:48:00 76 mm[Hg] [facility] pressure Heart rate 2020-12-08 15:48:00 64 /min [facility] Body temperature 2020-12-08 15:48:00 36.61 Amina [facility] Respiratory rate 2020-12-08 15:48:00 17 /min [facility] Body height 2020-12-08 15:48:00 162.6 cm [facility] Body weight 2020-12-08 15:48:00 98.884 kg [facility] BMI 2020-12-08 15:48:00 37.42 kg/m2 [facility] Oxygen saturation in 2020-12-08 15:48:00 97 /min [facility] Arterial blood by Pulse oximetry Respitory Rate 2020-08-30 13:00:00 Memori al Mullan Systolic (mm Hg) 2020-08-30 13:00:00 Caesar rial Marty Diastolic (mm Hg) 2020-08-30 13:00:00 Mem orial Marty Systolic (mm Hg) 2020-08-30 11:00:00 Caesar rial Mullan Diastolic (mm Hg) 2020-08-30 11:00:00 Mem orial Mullan Temperature Oral (F) 2020-08-30 11:00:00 98.4 F [facility] Marty Respitory Rate 2020-08-30 11:00:00 Darien andre Marty Respitory Rate 2020-08-30 10:00:00 Dari[place] andre Mullan Systolic (mm Hg) 2020-08-30 10:00:00 Caesar cheung Mullan Diastolic (mm Hg) 2020-08-30 10:00:00 Mem orial Mullan Temperature Oral (F) 2020-08-30 00:00:00 96.9 F [facility] Mullan Temperature Oral (F) 2020-08-29 11:26:00 97.6 F [facility] Marty Height 2020-08-29 10:30:00 162.56 cm [facility] Mullan Weight 2020-08-29 10:30:00 [facility] Marty BMI Calculated 2020-08-29 10:30:00 Dari[place] andre Mullan Procedures Procedure Date / Time Performing Clinician Source Performed CT CERVICAL SPINE WO 2021-12-13 05:48:16 Bill Guo Kiersten [facility] CONTRAST [facility] CT HEAD WO CONTRAST 2021-12-13 05:48:16 Bill Guo [facility] CT LUMBAR SPINE WO 2021-12-13 05:48:16 Bill Guo [facility] CONTRAST [facility] CT THORACIC SPINE WO 2021-12-13 05:48:16 Bill Guo Kiersten [facility] CONTRAST [facility] ECG 12-LEAD 2021-07-14 15:14:00 Elan Lira [facility] [id number] 2021-06-17 00:00:00 GRACEA [facility] Clear [facility] GASTROINTESTINAL PANEL 2020-12-08 22:21:00 Eliseo Arce [facility] XR ABDOMEN 1 VW 2020-12-08 18:06:32 Eliseo Arce Ho spital OR [place] < 1 HOUR 2020-09-05 22:39:00 Eliseo Arce spital SURGICAL PATHOLOGY REQUEST 2020-09-05 21:54:00 Eliseo Arce [facility] XR CHEST 1 VW PORTABLE 2020-09-05 19:55:00 Eliseo [facility]ce [facility] DISCHARGE PATIENT 2020-09-05 17:27:55 Lucas Harris [facility] NC AN ELECTIVE 2020-09-05 16:47:23 Kirit Flood V[facility] ENDOTRACHEAL AIRWAY EGD, INTRAOPERATIVE 2020-09-05 16:27:00 Eliseo Arce [facility] PARTIAL THROMBOPLASTIN 2020-09-05 15:04:00 Sarai Maharaj [facility] TIME (PTT) M. PROTHROMBIN TIME WITH INR 2020-09-05 15:04:00 Mindy Maharaj [facility] M. Plan of Care Planned Activity Planned Date Details Comments Source Future Scheduled 2021-08-26 Screening for [facility] Test 13:02:23 malignant neoplasm of cervix (procedure) [code = 202533169] Future Scheduled 2021-08-26 BREAST CANCER [facility] Test 13:02:23 SCREENING [code = BREAST CANCER SCREENING] Future Scheduled 2021-08-26 COLONOSCOPY SCREENING [facility] Test 13:02:23 [code = COLONOSCOPY SCREENING] Future Scheduled 2021-08-26 Screening for [facility] Test 13:02:23 malignant neoplasm of lung (procedure) [code = 183697335] Future Scheduled 2021-08-26 SHINGLES VACCINES (#1) [facility] Test 13:02:23 [code = SHINGLES VACCINES (#1)] Future Scheduled 2021-08-26 COVID-19 VACCINE (3 - [facility] Test 13:02:23 Pfizer risk 4-dose series) [code = COVID-19 VACCINE (3 - Pfizer risk 4-dose series)] Future Scheduled 2021-08-26 65+ PNEUMOCOCCAL [facility] Test 13:02:23 VACCINE (4 of 4 - PPSV23) [code = 65+ PNEUMOCOCCAL VACCINE (4 of 4 - PPSV23)] Future Scheduled 2021-08-26 INFLUENZA VACCINE [facility] Test 13:02:23 [code = INFLUENZA VACCINE] Encounters Start End Encounter Admission Attending Care Care Encounter Source Date/Time Date/Time Type Type Clinicians Facility Department ID 2021-11-16 Outpatient [facility] [id number] [place] 10:32:47 [id number] Health 2021-08-03 Inpatient WINTER Lund [id number] [facility] 11:30:00 Mike [id number] [facility] 2021-07-14 Outpatient JENNY [facility] [id number] [place] 09:33:51 [facility] 2021-06-16 Inpatient WINTER Leal [id number] [facility] 08:30:00 Mike [id number] [facility] 2021-06-15 Inpatient WINTER Leal [id number] [facility] 10:30:00 Mike [id number] [facility] 2022-02-26 2022-02-26 Outpatient Marika [facility] [id number] Univers 08:30:00 08:30:00 SANTIAGO [id number] [facility] 2022-02-26 2022-02-26 Outpatient Marika [facility] [id number] Univers 08:30:00 08:30:00 SANTIAGO [facility] 2021-12-12 2021-12-13 Emergency X Bill GUO [facility] ERT [id number] Univers 23:53:00 [facility]:52[facility] 2021-12-12 2021-12-13 Emergency Bill Guo [facility] [id number] Univers 23:53:00 01:52:00 Kiersten BULLOCK 350.1.13.10 i ty [facility] 4.2.7.2.686 [facility] [id number] [facility] 084 Branch 2021-11-20 2021-11-20 Prepress [facility] UNIVERSIT 1.2.840.114 [id number] Univers 09:45:00 10:00:00 Visit Santiago Cardenas [facility] [id number] ity of [facility] 4.2.7.2.686 [facility] [id number] [facility] 316 Branch 2021-11-20 2021-11-20 Outpatient Marika CARDENAS [facility] [id number] Univers 09:45:00 09:45:00 SANTIAGO [facility] 2021-11-20 2021-11-20 Outpatient [facility] [id number] Univers 09:45:00 09:45:00 [id number] [facility] 2021-08-21 2021-08-21 Office [facility] 1.2.106.153 [id number] [facility] 08:30:00 09:00:00 Visit Santiago [facility] 350.1.13.[address] [facility] 4.2.7.2.686 Richi bach [id number] [facility] 089 Branch 2021-08-05 2021-08-05 Outpatient RAUL Lund, EDUARDOCL HCACL [id number] [facility] 05:24:00 05:24:00 Mike 31 [facility] 2021-08-05 2021-08-05 Outpatient RAUL Lund, EDUARDOCL RUST [id number] [facility] 05:24:00 05:24:00 Miek [id number] [facility] 2021-07-14 2021-07-14 Office KIMBERLEY Lira 6400 1.2.840.114 [id number] [place] 08:45:00 09:34:[address] 350.1.13.58 Health 9.2.7.2.686 [id number] 1 2021-07-09 2021-07-09 Telephone KIMBERLEY Layton 6400 1.2.840.114 [id number] [place] 00:00:00 00:00:[address] 350.1.13.58 Health 9.2.7.2.686 [id number] 1 2021-06-17 2021-06-17 Inpatient RAUL Lund, HCACL INTE.02 [id number] [facility] 10:56:00 14:36:00 Mike [id number] [facility] 2021-06-17 2021-06-17 Inpatient RAUL Lund, HCACL INTE.02 [id number] [facility] 10:56:00 14:36:00 Mike 47 [facility] 2021-04-28 2021-04-28 Telephone Jailyn 1Chelsie2.840.3 [id number] Methodi 00:00:00 00:00:[address] 3.430.2.7 Hospit a .3.139275 l .8 2021-03-31 2021-03-31 Qi Coyle2.840.1 [id number] 21 [id number] Methodi 00:00:00 00:00:00 Only Sarai Lieberman 05250.1.1 979 s t 3.430.2.7 Hospit a .3.146976 l .8 2021-03-24 2021-03-24 [facility]phone [facility] 1.2.840.9 [id number] Methodi 00:00:00 00:00:[address] 3.430.2.7 Hospit a .3.236862 l .8 2021-01-19 2021-01-19 Telephone Melvin, 1.2.840.1 [id number] 2099 [id number] Methodi 00:00:00 00:00:[address] 3.430.2.7 Hospit a .3.965809 l .8 2020-12-12 2020-12-12 Office Hematpour, [facility] 6400 1.2.840.114 [id number] 07:42:02 08:18:[address] 350.1.13.58 9.2.7.2.686 [id number] 1 2020-12-09 2020-12-09 Telephone [facility], 1.2.840.1 [id number] Methodi 00:00:00 00:00:00 Sarai Lieberman 68105.1.1 316 s t 3.430.2.7 Hospit a .3.057861 l .8 2020-12-08 2020-12-08 [facility], 1.2.840.1 [id number] 2100 [id number] Methodi 12:35:54 23:59:00 Encounter Ray [address]258.1.[address] 3.430.2.7 Hospit a .3.842287 l .8 2020-12-08 2020-12-08 [facility], 1.2.840.1 [id number] [id number] Methodi 17:25:00 17:30:[address] 3.430.2.7 Hospit a .3.814605 l .8 2020-12-08 2020-12-08 Office Jailyn, 1.2.840.1 [id number] 73410 [id number] Methodi 10:30:00 11:39:56 Visit Ray 22223.1.[address] 3.430.2.7 Hospit a .3.650766 l .8 2020-12-08 2020-12-08 Travel 1.2.840.1 1.2.158.417 8123 [id number] Methodi 00:00:00 00:00:[address] 3.430.2.7 0.2.7.3.698 Ho spita .3.925089 084.8 l .8 2020-12-02 2020-12-02 Prepress [facility] 1.2.840.114 [id number] 10:20:06 10:36:19 Visit HEALTH 350.1.13.10 CLINICS 4.2.7.2.686 [id number] 316 2020-11-25 2020-11-25 Office Devin [facility] 1.2.840.114 [id number] 11:06:30 11:58:14 Visit Robbi R ACUTE DIALYSIS REGISTERED NURSE 350.1.13.10 [facility] 4.2.7.2.686 MATERNAL [id number] & CHILD 107 [facility] 2020-11-25 2020-11-25 [facility] 1.2.649.981 [id number] 00:00:00 00:00:00 [facility] HEALTH 350.1.13.10 CLINICS 4.2.7.2.686 [id number] 2020-11-25 2020-11-25 [facility] 1.2.483.100 [id number] 00:00:00 00:00:00 Rosluisa R ACUTE DIALYSIS REGISTERED NURSE 350.1.13.10 REGIONAL 4.2.7.2.686 MATERNAL [id number] & CHILD 107 [facility] 2020-11-14 2020-11-14 Abstract Clark, 1.2.840.1 [id number] 58822 [id number] Methodi 00:00:00 00:00:[address] 3.430.2.7 Hospit a .3.216911 l .8 2020-11-14 2020-11-14 Telephone Clark, 1.2.840.1 [id number] 2099 [id number] Methodi 00:00:00 00:00:[address] 3.430.2.7 Hospit a .3.870480 l .8 2020-11-07 2020-11-07 Telephone Diana, [facility] 6400 1.2.840.114 [id number] 00:00:00 00:00:[address] 350.1.13.58 9.2.7.2.686 [id number] 1 2020-10-27 2020-10-27 Telephone Cade, 1.2.840.1 [id number] Methodi 00:00:00 00:00:[address] 3.430.2.7 Hospit a .3.095223 l .8 2020-10-24 2020-10-24 Telephone Clark, 1.2.840.1 [id number] 2099 [id number] Methodi 00:00:00 00:00:[address] 3.430.2.7 Hospit a .3.329057 l .8 2020-10-06 2020-10-12 Telemedici [facility], 1.2.840.1 [id number] Methodi 15:30:00 00:08:46 ne Ray 69812.1.[address] 3.430.2.7 Hospit a .3.915324 l .8 2020-09-30 2020-09-30 Telephone Jeredimasaleshia, 1.2.840.1 [id number] Methodi 00:00:00 00:00:[address] 3.430.2.7 Hospit a .3.203317 l .8 2020-09-21 2020-09-21 Travel 1.2.840.1 1.2.623.796 5808 [id number] Methodi 00:00:00 00:00:[address] 3.430.2.7 0.2.7.3.698 Ho spita .3.330548 084.8 l .8 2020-09-06 2020-09-06 [facility] 1.2.840.1 [id number] Methodi 17:42:30 23:59:[address] 3.430.2.7 Hospit a .3.667201 l .8 2020-09-06 2020-09-06 [facility], 1.2.840.1 [id number] 2100 [id number] Methodi 16:50:00 17:41:00 Encounter Ray 97830.1.[address] 3.430.2.7 Hospit a .3.342210 l .8 2020-09-05 2020-09-05 [facility], 1.2.840.1 [id number] [id number] Methodi 09:17:00 19:45:00 Encounter Ray [address]2420.1.[address] 3.430.2.7 Hospit a .3.460538 l .8 2020-09-05 2020-09-05 Surgery [facility], 1.2.840.1 [id number] Methodi 11:30:00 13:15:[address] 3.430.2.7 Hospit a .3.193830 l .8 2020-09-05 2020-09-05 Anesthesia [facility], 1.2.840.1 [id number] Methodi 11:27:00 12:20:00 Event Anupamdarrellthi 77771.1.1 243 s t V. 3.430.2.7 Hospit a .3.968079 l .8 2020-09-05 2020-09-05 Travel 1.2.840.1 1.2.148.357 1806 [id number] Methodi 00:00:00 00:00:[address] 3.430.2.7 0.2.7.3.698 anayta .3.300905 084.8 l .8 2020-09-04 2020-09-04 Telephone [place], 1.2.840.1 [id number] Methodi 00:00:00 00:00:00 Sarai Lieberman 62604.1.1 762 s t 3.430.2.7 Hospit a .3.527192 l .8 2020-09-02 2020-09-02 Telephone [place], 1.2.840.8 [id number] Methodi 00:00:00 00:00:00 Sarai Lieberman 92334.1.1 344 s t 3.430.2.7 Hospit a .3.822804 l .8 2020-08-29 2020-08-30 Bedded [facility] [id number] [facility] 10:20:00 14:10:00 Outpatient [facility] 00 l [facility] 2020-08-29 2020-08-30 Outpatient HEMATPOUR, [facility] CAR 7500 [facility] 05:20:00 09:10:00 [place] Results Test Description Test Time Test Comments Results Result Comments Source Novel Coronavirus 2019 Inhouse 2021-08-03 18:08:00 Test Item Value Reference Range Interpretation Comme nts Novel Coronavirus 2018 Negative Negative Posit bruno results are indicative of the Inhouse (test code = presenc e [id number] RNA, clinical COVNONPUI) correlation wit h patient [...] qualitative detection of nucleic acid s from myyILPJ-EbL-1 virus and diagn osis of SARS-CoV-2 virusinfection. It is an Emergency Use Authorization ( EUA) testauthorized by the U.S. FDA. BASIC METABOLIC [id number] 09:37:00 Test Item Value Reference Range Interpretation [...] = 9.0 mg/dL 8.0-10.5 N CA) PROTHROMBIN [id number] 09:32:00 Test Item Value Reference Range Interpretation [...] (to prevent recurrent infar ct). 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 - XR CHEST 1 [id number] 00:00:00 [facility] 1955 Sex: F FAX: Carmenza Kelly DO [phone] Isabella: St: ADM FAX: Mike Scales MD [phone] FAX: Bahman Chopra [phone] Name: LIO WATTS : 1955 Age/S: 66/F [address] [place] [address] Unit #: [id number] Loc: [place] [address] Phys: Juwan Choprann Jess [facility] Acct: [id number] Dis Date: Status: ADM IN PHONE #: [phone] Exam Date: 06/17/2021 1320 FAX #: [phone] Reason: WATCHMAN EXAMS: CPT CODE: [id number] XR CHEST 1 V [id number] PROCEDURE INFORMATION: Exam: XR Chest Exam date [...] Chopra Technologist: RT Taylor(R) Trnscrd Date/Time/By: 06/17/2021 (5284) : By: IselaKWL Orig Print D/T: S: 06/17/2021 (1394) PAGE 1 Signed ReportCOVID 19 Asymptomatic IH [...] high or waivedcomplexit y tests. BASIC METABOLIC [id number] 11:37:00 Test Item Value Reference Range Interpretation [...] code = 9.0 mg/dL 8.0-10.5 N CA) EFSSPVHPNR8165-02-01 11:37:00 Test Item Value Reference Range Interpretation Comments PREALBUMIN (test code = PREALB) 24.3 mg/dL 16.0-40.0 N PROTHROMBIN [id number] 11:03:00 Test Item Value Reference Range Interpretation [...] (to prevent recurrent infar ct). CBC W/AUTO [id number] 10:59:00 Test Item Value Reference Range Interpretation [...] 0.0-0.1 N NRBC#) - XR CHEST 2 [id number] 00:00:00 [facility] 1955 Sex: F FAX: Carmenza Kelly DO [phone] Isabella: St: PRE FAX: Mike Scales MD [phone] Name: LIO WATTS [facility] : 1955 Age/S: 66/F [address] [place], [place] [address] Unit #: [id number] Loc: [place] [address] Phys: Mike Lund MD Acct: [id number] Dis Date: Status: PRE [facility] PHONE #: [phone] Exam Date: 06/16/20211119 FAX #: [phone] Reason: PREOP EXAMS: CPT CODE: [id number] XR CHEST 2 V 91151 PROCEDURE INFORMATION: Exam: XR Chest Exam date [...] Technologist: Danielle Nix RT(R) Trnscrd Date/Time/By: 06/16/2021 ([id number]) : By: [email or web address] Orig Print D/T: S: 06/16/2021 (0367) PAGE 1 Signed ReportGastrointestinal [id number] 04:35:05 Test Item Value Reference Interpretation Comments [...] Rotavirus PCR (test Not Detected code = 5992732) Salmonella PCR (test Not Detected code = [...] (test code = 7124) [facility] qyxfuat2204-58-28 19:30:47 Test Item Value Reference Range Interpretation Comments Case number (test [id number] code = 1860060) Surgical pathology See link below for PDF report (test code = Lab Report 2255) Result status (test This is Supplemental code = 2050369) Report for [id number] [facility]2021-04-09 16:31:00 Test Item Value Reference Range Interpretation Comments POC Activated Clotting Time (test code 153 s = POC Activated Clotting Time) [place] 108821-04-09 16:31:00 Test Item Value Reference Range Interpretation Comments POC Activated Clotting Time (test code 153 s = POC Activated Clotting Time) [place] 108821-04-09 16:31:00 Test Item Value Reference Range Interpretation Comments POC Activated Clotting Time (test code 153 s = POC Activated Clotting Time) [place] 108821-04-09 16:31:00 Test Item Value Reference Range Interpretation Comments POC Activated Clotting Time (test code 153 s = POC Activated Clotting Time) [place] 108821-04-09 16:31:00 Test Item Value Reference Range Interpretation Comments POC Activated Clotting Time (test code 153 s = POC Activated Clotting Time) [place] 108821-04-09 16:31:00 Test Item Value Reference Range Interpretation Comments POC Activated Clotting Time (test code 153 s = POC Activated Clotting Time) [place] 108821-04-09 16:31:00 Test Item Value Reference Range Interpretation Comments POC Activated Clotting Time (test code 153 s = POC Activated Clotting Time) [place] 108821-04-09 14:37:00 Test Item Value Reference Range Interpretation Comments POC Activated Clotting Time (test code 454 s = POC Activated Clotting Time) [address]04-09 14:37:00 Test Item Value Reference Range Interpretation Comments POC Activated Clotting Time (test code 454 s = POC Activated Clotting Time) [place] 108821-04-09 14:37:00 Test Item Value Reference Range Interpretation Comments POC Activated Clotting Time (test code 454 s = POC Activated Clotting Time) [address]04-09 14:37:00 Test Item Value Reference Range Interpretation Comments POC Activated Clotting Time (test code 454 s = POC Activated Clotting Time) [address]04-09 14:37:00 Test Item Value Reference Range Interpretation Comments POC Activated Clotting Time (test code 454 s = POC Activated Clotting Time) [place] 108821-04-09 14:37:00 Test Item Value Reference Range Interpretation Comments POC Activated Clotting Time (test code 454 s = POC Activated Clotting Time) [facility] ResourcesRwqiputUHIOHGSFMV5627-65-14 14:37:00 Test Item Value Reference Range Interpretation Comments POC Activated Clotting Time (test code 454 s = POC Activated Clotting Time) [facility] ResourcesQmecfpgEGRCFUKJTL3998-61-21 14:13:00 Test Item Value Reference Range Interpretation Comments POC Activated Clotting Time (test code 354 s = POC Activated Clotting Time) [facility] ResourcesGuhayrsSYGYEXFXTT9694-03-11 14:13:00 Test Item Value Reference Range Interpretation Comments POC Activated Clotting Time (test code 354 s = POC Activated Clotting Time) [facility] ResourcesPdomkqgRRNPMJMEXI9176-36-98 14:13:00 Test Item Value Reference Range Interpretation Comments POC Activated Clotting Time (test code 354 s = POC Activated Clotting Time) [facility] ResourcesNjgwqxuKWMITILFOK3440-77-68 14:13:00 Test Item Value Reference Range Interpretation Comments POC Activated Clotting Time (test code 354 s = POC Activated Clotting Time) [facility] ResourcesZzrletwPDVRXUQDHY9296-80-86 14:13:00 Test Item Value Reference Range Interpretation Comments POC Activated Clotting Time (test code 354 s = POC Activated Clotting Time) [facility] ResourcesGssciiyBWYPNHYSKU4919-15-14 14:13:00 Test Item Value Reference Range Interpretation Comments POC Activated Clotting Time (test code 354 s = POC Activated Clotting Time) [facility] ResourcesOdxqwhlEJAIOFRBYL3852-07-59 14:13:00 Test Item Value Reference Range Interpretation Comments POC Activated Clotting Time (test code 354 s = POC Activated Clotting Time) [facility] QVYPSZD9579-10-33 10:37:00Negative (08/29/20 5:37 AM) [facility] HXWIP3386-94-78 10:37:21970Hekdxyid HermannCHEM PANEL 2020-08-29 10:37:0028[facility] HermannCHEM POZJA2918-76-87 10:37:001.01[facility] HermannCHEM GSJVI4325-79-18 10:37:02749Hyizvouu HermannCHEM GPCSU8622-35-86 10:37:003.8[facility] HermannCHEM HSJVL1014-66-77 10:37:03816Lknfoyua HermannCHEM SIDPC5996-43-55 10:37:0028[facility] HermannCHEM KLLYP6380-15-57 10:37:009.8 [facility] HermannCHEM AGTLM5916-54-64 10:37:0011.8[facility] HermannCHEM PANEL 2020-08-29 10:37:0059[facility] HermannCHEM SKJVL6598-42-78 10:37:002.9[facility] TxaqtwpZEOEQWTGDQ4505-03-41 10:37:006.8[facility] LoecffdGGIPHWDCYY9202-91-24 10:37:004.47[facility] PvhwpylBVFBXWXOLI8130-94-36 10:37:0010.6[facility] FNILIKPBDI0217-42-94 10:37:0034.0[facility] WyjkdosHLNJTRSMSL0244-73-82 10:37:00 76.1[facility] OikwnxmHPSYOJFDAF1439-60-38 10:37:00 Test Item Value Reference Range Interpretation Comments MCH (test code = MCH) 23.8 pg 27.0-31.0 [facility] MmhuxjpGGOULJIDFW6687-23-92 10:37:0031.3[facility] HermannHEMATOLOGY 2020-08-29 10:37:0018.2[facility] FerdvpqCKKJEKGOGV3752-39-91 10:37:50460Rdhdrbyx XxvqmxrAINRRUNCBB7290-97-88 10:37:007.5[facility] SnlqsijDEBVIPVRQG0610-39-05 10:37:00 Test Item Value Reference Range Interpretation Comments PT (test code = PT) 12.8 s 12.0-14.7 [facility] EwhxpvlWGZZYFYNMI5446-49-64 10:37:00 Test Item Value Reference Range Interpretation Comments INR (test code = INR) 0.97 1 0.85-1.17 [facility] YsfzsxtYHMZBPANRC3051-41-31 10:37:00 Test Item Value Reference Range Interpretation Comments PTT (test code = PTT) 25.0 s 22.9-35.8 [facility] WiuybisNBHYHLXXWF2133-70-89 10:37:0070.5[facility] HermannHEMATOLOGY 2020-08-29 10:37:0018.8[facility] BqnwmyaAWEBUXSIDN8129-84-71 10:37:009.5[facility] NadeeytOZGSUKPMPT5359-70-37 10:37:000.9[facility] YjrfyiiVYYFZBQZUC5750-24-68 10:37:000.3[facility] LzhayffMNIZGVBCTV4209-65-69 10:37:004.8[facility] EPUONMFEIB7637-29-59 10:37:001.3[facility] EbxfxhkTXFGHSRJMW2439-58-15 10:37:000.6 [facility] AhegticBKGONYUSYX4728-86-80 10:37:000.1[facility] HermannHEMATOLOGY 2020-08-29 10:37:001+ *ABN*(08/29/20 5:37 AM)[facility] EhkwuhcBGAJDTHGVC6157-60-37 10:37:00Not Detected (08/29/20 5:37 AM)[facility] HermannBLOOD BANK RESULTS 2020-08-29 10:37:00Negative (08/29/20 5:37 AM)[facility] HermannCHEM BXQXJ4247-32-99 10:37:38114Vphvxdus HermannCHEM YYMJG8423-18-25 10:37:0028[facility] HermannCHEM BYRJD8771-45-85 10:37:001.01[facility] HermannCHEM GEDQP2388-25-59 10:37:12818 [facility] HermannCHEM JTXXO3714-62-79 10:37:003.8[facility] HermannCHEM PANEL 2020-08-29 10:37:90528Byitovvt HermannCHEM LCRHB7546-58-18 10:37:0028[facility] HermannCHEM HFBBU9707-69-66 10:37:009.8[facility] HermannCHEM RIMQP1975-38-07 10:37:0011.8[facility] HermannCHEM TTBOK9617-70-46 10:37:0059[facility] HermannCHEM KHHRB9903-99-24 10:37:002.9[facility] PdwqryfEBOCXRCFLI2347-00-92 10:37:006.8 [facility] HfgidypVTGUFXPYHV0055-94-00 10:37:004.47[facility] HermannHEMATOLOGY 2020-08-29 10:37:0010.6[facility] KykfocdPVECRWNPBE5818-61-61 10:37:0034.0[facility] IsyslzfBCZHVUKMUP2575-04-63 10:37:0076.1[facility] ImouixpYYGTAHXUHX0325-98-29 10:37:00 Test Item Value Reference Range Interpretation Comments MCH (test code = MCH) 23.8 pg 27.0-31.0 [facility] LdhftwvKEZORDJSRJ7760-50-60 10:37:0031.3[facility] HermannHEMATOLOGY 2020-08-29 10:37:0018.2[facility] IdciacwPWIAHMYPCT2029-12-52 10:37:15412Ehxhycwr GaqbiwdOTUCVRYCPW9976-19-96 10:37:007.5[facility] OsrkgsyGLHKTLYJKJ0852-09-88 10:37:00 Test Item Value Reference Range Interpretation Comments PT (test code = PT) 12.8 s 12.0-14.7 [facility] XvsxwjeWNFVLLIQOD6008-28-14 10:37:00 Test Item Value Reference Range Interpretation Comments INR (test code = INR) 0.97 1 0.85-1.17 [facility] VagcuqyGWDZLKSDUE3112-53-20 10:37:00 Test Item Value Reference Range Interpretation Comments PTT (test code = PTT) 25.0 s 22.9-35.8 [facility] UychfmnWMUMHKWWWV4378-94-47 10:37:0070.5[facility] HermannHEMATOLOGY 2020-08-29 10:37:0018.8[facility] YsoaprxUDVTBJAIVG5811-60-35 10:37:009.5[facility] ZtapawfZTSGWDAXFQ9810-22-64 10:37:000.9[facility] UrogioxQIBBNGMGDS9150-03-56 10:37:000.3[facility] GkqrzzhTTYLRDLPAP1855-88-39 10:37:004.8[facility] RGQKDUWYRX0790-21-39 10:37:001.3[facility] VddzecpLUXECDYQOX9001-47-40 10:37:000.6 [facility] DfnzcxhSNNGTAFRSK5942-39-38 10:37:000.1[facility] HermannHEMATOLOGY 2020-08-29 10:37:001+ *ABN*(08/29/20 5:37 AM)[facility] SzcfqwyDVKWMMUDTO3124-92-41 10:37:00Not Detected (08/29/20 5:37 AM)[facility] HermannBLOOD BANK RESULTS 2020-08-29 10:37:00Negative (08/29/20 5:37 AM)[facility] HermannCHEM QNDLD9000-63-28 10:37:59130Kubhyrox HermannCHEM GIFVM4392-52-67 10:37:0028[facility] HermannCHEM YRUBE2806-01-43 10:37:001.01[facility] HermannCHEM FZRRO3116-67-10 10:37:76583 [facility] HermannCHEM ZFLAR5747-68-23 10:37:003.8[facility] HermannCHEM PANEL 2020-08-29 10:37:41829Dmingoqp HermannCHEM IXBWR3144-73-08 10:37:0028[facility] HermannCHEM CVTKK2117-81-19 10:37:009.8[facility] HermannCHEM FYQGJ4156-58-95 10:37:0011.8[facility] HermannCHEM PZPBP8130-92-75 10:37:0059[facility] HermannCHEM NYJBP2441-58-18 10:37:002.9[facility] VpadnwkEJFLSLCQVM1168-83-85 10:37:006.8 [facility] ZtvwriqLYXPMIZAPV2169-84-57 10:37:004.47[facility] HermannHEMATOLOGY 2020-08-29 10:37:0010.6[facility] LdmviplYCBCUOPLVN9190-25-14 10:37:0034.0[facility] BvtirxmXTPXNIFWUI6476-48-92 10:37:0076.1[facility] IangfnqAVKPWWUEDU8887-57-11 10:37:00 Test Item Value Reference Range Interpretation Comments MCH (test code = MCH) 23.8 pg 27.0-31.0 [facility] VhsooodSESINBWHKS4644-73-31 10:37:0031.3[facility] HermannHEMATOLOGY 2020-08-29 10:37:0018.2[facility] RvbamwuTXHHMGFMSJ7879-54-50 10:37:89523Njgeqwdq KnlcrgfEVXYOPAUDL3910-19-49 10:37:007.5[facility] JapevxtJIMCJZVZDW6982-46-78 10:37:00 Test Item Value Reference Range Interpretation Comments PT (test code = PT) 12.8 s 12.0-14.7 [facility] SmmfxhqZJECMPXYES6291-59-27 10:37:00 Test Item Value Reference Range Interpretation Comments INR (test code = INR) 0.97 1 0.85-1.17 [facility] DolygddTGYAKADKEX0307-25-35 10:37:00 Test Item Value Reference Range Interpretation Comments PTT (test code = PTT) 25.0 s 22.9-35.8 [facility] LuiyzwnLEFAECEZKY1349-04-20 10:37:0070.5[facility] HermannHEMATOLOGY 2020-08-29 10:37:0018.8[facility] ZszfvzlSVASNQVBDI7801-96-77 10:37:009.5[facility] CudwasdCRSZPFBTIY6563-73-42 10:37:000.9[facility] HrnjqqrGBHJNTYIRU1489-89-76 10:37:000.3[facility] IpqimfhAFURUEFVEU8700-01-56 10:37:004.8[facility] MAGOTASJIU4363-43-88 10:37:001.3[facility] DdguwrvURESIVKJDE3430-45-93 10:37:000.6 [facility] OcdhjqpVGVPXCSXSV9014-15-50 10:37:000.1[facility] HermannHEMATOLOGY 2020-08-29 10:37:001+ *ABN*(08/29/20 5:37 AM)[facility] HeyiojfSPKEPIUWVQ4198-40-10 10:37:00Not Detected (08/29/20 5:37 AM)[facility] HermannBLOOD BANK RESULTS 2020-08-29 10:37:00Negative (08/29/20 5:37 AM)[facility] HermannCHEM XRYNG6348-42-83 10:37:33491Msrexodj HermannCHEM XNWET8598-53-83 10:37:0028[facility] HermannCHEM GSXDC0201-86-14 10:37:001.01[facility] HermannCHEM RIMBI3911-95-66 10:37:34720 [facility] HermannCHEM YQMFM4930-24-01 10:37:003.8[facility] HermannCHEM PANEL 2020-08-29 10:37:56640Efrqkhoe HermannCHEM PKQGQ4251-75-51 10:37:0028[facility] HermannCHEM FRRSN2310-71-72 10:37:009.8[facility] HermannCHEM LCLEK8200-71-04 10:37:0011.8[facility] HermannCHEM MNPLC5432-57-96 10:37:0059[facility] HermannCHEM ZJXNL1188-76-52 10:37:002.9[facility] JiqeimsQACJSYEBMC3315-10-84 10:37:006.8 [facility] QofwvapQLZZSTHKIV2555-45-97 10:37:004.47[facility] HermannHEMATOLOGY 2020-08-29 10:37:0010.6[facility] BkafbkfTMGIQBSQIA1487-23-78 10:37:0034.0[facility] UlbndigJGFBEPGIVW6651-26-60 10:37:0076.1[facility] XensmdrZKWSHUFTYZ2153-00-56 10:37:00 Test Item Value Reference Range Interpretation Comments MCH (test code = MCH) 23.8 pg 27.0-31.0 [facility] VtmjggeYUFIXGWBYA4649-10-70 10:37:0031.3[facility] HermannHEMATOLOGY 2020-08-29 10:37:0018.2[facility] OucangkETYVOQZTKK5403-45-34 10:37:27555Vyuuazay EbddktgBLRBOQDIMH9654-55-88 10:37:007.5[facility] HbmouozDADYJJDZVT5247-86-50 10:37:00 Test Item Value Reference Range Interpretation Comments PT (test code = PT) 12.8 s 12.0-14.7 [facility] GreygwhTQZNGXQZMR9561-94-60 10:37:00 Test Item Value Reference Range Interpretation Comments INR (test code = INR) 0.97 1 0.85-1.17 [facility] KyywbfsHYPCYEOWBA0231-23-95 10:37:00 Test Item Value Reference Range Interpretation Comments PTT (test code = PTT) 25.0 s 22.9-35.8 [facility] YdtcrewDPPKJUJKBR1140-12-88 10:37:0070.5[facility] HermannHEMATOLOGY 2020-08-29 10:37:0018.8[facility] OxnjocjXZPNGFPGYG6092-34-94 10:37:009.5[facility] YsectdoQGQKPECXDF1421-51-72 10:37:000.9[facility] BvvchwwHSAJOAYRQS3812-81-57 10:37:000.3[facility] QkeiwlvZJGSVOIDXL4297-42-64 10:37:004.8[facility] RNMPQPNVVE9445-04-02 10:37:001.3[facility] SqkztfgWFGPLLLWNO0748-62-02 10:37:000.6 [facility] JylgrhaTKCLUFYWGZ5442-65-06 10:37:000.1[facility] HermannHEMATOLOGY 2020-08-29 10:37:001+ *ABN*(08/29/20 5:37 AM)[facility] RevotbeLYPSMNIXEB6799-47-94 10:37:00Not Detected (08/29/20 5:37 AM)[facility] HermannBLOOD BANK RESULTS 2020-08-29 10:37:00Negative (08/29/20 5:37 AM)[facility] HermannCHEM EJZRM7569-00-78 10:37:10592Zqutcoto HermannCHEM UCJCA0953-38-96 10:37:0028[facility] HermannCHEM QGAYG9142-28-25 10:37:001.01[facility] HermannCHEM EPWVW0375-15-87 10:37:95665 [facility] HermannCHEM APGQI3210-97-63 10:37:003.8[facility] HermannCHEM PANEL 2020-08-29 10:37:13810Jfftvsln HermannCHEM ENDOK8838-73-55 10:37:0028[facility] HermannCHEM BNOHG9611-82-11 10:37:009.8[facility] HermannCHEM PMEAI5512-96-85 10:37:0011.8[facility] HermannCHEM NWYLA4958-30-93 10:37:0059[facility] HermannCHEM OSGEQ3726-42-31 10:37:002.9[facility] NgifsmtHHTLUUQTOS1589-23-28 10:37:006.8 [facility] MepmkmyOFAUDSWKKG5418-70-31 10:37:004.47[facility] HermannHEMATOLOGY 2020-08-29 10:37:0010.6[facility] OswdnmzYMLOYQDCWI3504-10-61 10:37:0034.0[facility] FugknkwSATGCASDWJ7984-79-91 10:37:0076.1[facility] VycpdcuJOFYYPBVJY0955-28-09 10:37:00 Test Item Value Reference Range Interpretation Comments MCH (test code = MCH) 23.8 pg 27.0-31.0 [facility] SrofnuyKYKJFETTMW5083-97-44 10:37:0031.3[facility] HermannHEMATOLOGY 2020-08-29 10:37:0018.2[facility] YftvrgmFVDCNAYKKQ5627-37-42 10:37:37977Lsxmzswp RwzbplhTKXCRDMOAF0588-84-01 10:37:007.5[facility] ZpdtckyPCAYMLFCMY0146-66-26 10:37:00 Test Item Value Reference Range Interpretation Comments PT (test code = PT) 12.8 s 12.0-14.7 [facility] CqifdgbHESOGGQXQI8266-72-81 10:37:00 Test Item Value Reference Range Interpretation Comments INR (test code = INR) 0.97 1 0.85-1.17 [facility] OskdrcmJCGLQZRMJP7934-30-48 10:37:00 Test Item Value Reference Range Interpretation Comments PTT (test code = PTT) 25.0 s 22.9-35.8 [facility] WxabfpnRLZVRZJDYJ2564-93-45 10:37:0070.5[facility] HermannHEMATOLOGY 2020-08-29 10:37:0018.8[facility] DoukoevZOEIBYOOSU9903-46-42 10:37:009.5[facility] XokgkgeMCCLMLGXMV1720-08-92 10:37:000.9[facility] QviduhgMENAPKBIFB3128-33-01 10:37:000.3[facility] BrgdmbiNAOSLZSHXS6206-13-33 10:37:004.8[facility] FMSMHVVOWT6973-58-95 10:37:001.3[facility] PvsnsdoUIQIBGMVNZ7054-11-76 10:37:000.6 [facility] VrtkeoeOWJNPANEBL8235-56-56 10:37:000.1[facility] HermannHEMATOLOGY 2020-08-29 10:37:001+ *ABN*(08/29/20 5:37 AM)[facility] LgpsrggRCKAUDLRUI8642-26-25 10:37:00Not Detected (08/29/20 5:37 AM)[facility] HermannBLOOD BANK RESULTS 2020-08-29 10:37:00Negative (08/29/20 5:37 AM)[facility] HermannCHEM CMDJK2319-01-67 10:37:93350Qwuibwzu HermannCHEM ZGBVM2605-10-04 10:37:0028[facility] HermannCHEM MHNEW4947-11-34 10:37:001.01[facility] HermannCHEM ZDPJN6798-30-03 10:37:75299 [facility] HermannCHEM FYVMP7444-03-26 10:37:003.8[facility] HermannCHEM PANEL 2020-08-29 10:37:26150Bpbaepwx HermannCHEM EIQXL1034-56-13 10:37:0028[facility] HermannCHEM VVXQT6889-88-29 10:37:009.8[facility] HermannCHEM AZVSE2104-26-24 10:37:0011.8[facility] HermannCHEM KVNHM1909-84-10 10:37:0059[facility] HermannCHEM BBIVB4416-32-50 10:37:002.9[facility] XlzwmdcGHJXWBZUFF7930-83-09 10:37:006.8 [facility] FalslbiMWNRHZQUJR0652-14-32 10:37:004.47[facility] HermannHEMATOLOGY 2020-08-29 10:37:0010.6[facility] QhilxemJLKYFTBWLZ9892-83-50 10:37:0034.0[facility] AprtojtKRDZFVVPPF1713-69-70 10:37:0076.1[facility] ZybskmgFKVVEFGBTB2550-81-24 10:37:00 Test Item Value Reference Range Interpretation Comments MCH (test code = MCH) 23.8 pg 27.0-31.0 [facility] TzdkoxiYTGORUGWZR3190-55-61 10:37:0031.3[facility] HermannHEMATOLOGY 2020-08-29 10:37:0018.2[facility] SqbinfmNONVBOOMYX8450-94-11 10:37:22413Gfmuksja XfqxqalVPAHIHUOIL3976-92-47 10:37:007.5[facility] IiljvopGOSHEWRUTU1666-41-64 10:37:00 Test Item Value Reference Range Interpretation Comments PT (test code = PT) 12.8 s 12.0-14.7 [facility] DjytbtmXJKVUVNRXJ7968-73-91 10:37:00 Test Item Value Reference Range Interpretation Comments INR (test code = INR) 0.97 1 0.85-1.17 [facility] WzrwqfkOWSAXPLGZO3441-57-97 10:37:00 Test Item Value Reference Range Interpretation Comments PTT (test code = PTT) 25.0 s 22.9-35.8 [facility] HehrnbzZWBHBURHHJ5041-59-34 10:37:0070.5[facility] HermannHEMATOLOGY 2020-08-29 10:37:0018.8[facility] OzhebjyZLUTTKIISY0854-59-61 10:37:009.5[facility] TvzzdbbNYHLRVESTV3192-75-38 10:37:000.9[facility] KgcyiteOSOIAYHJVA4979-01-01 10:37:000.3[facility] XryyojyWOEQCDWNFU3859-87-81 10:37:004.8[facility] WNLXGLAYTM7905-10-90 10:37:001.3[facility] JeugbpoJNWOMGPSWT0914-56-16 10:37:000.6 [facility] AchtoguPTFCQAKROQ3102-70-52 10:37:000.1[facility] HermannHEMATOLOGY 2020-08-29 10:37:001+ *ABN*(08/29/20 5:37 AM)[facility] PgdrikgFWEMWVYMKS0734-25-94 10:37:00Not Detected (08/29/20 5:37 AM)[facility] HermannBLOOD BANK RESULTS 2020-08-29 10:37:00Negative (08/29/20 5:37 AM)[facility] HermannCHEM LGUBC7619-95-17 10:37:56201Pfrdksig HermannCHEM IVQVI6586-26-62 10:37:0028[facility] HermannCHEM NZEBZ6709-82-68 10:37:001.01[facility] HermannCHEM PEHVE6811-93-72 10:37:29574 [facility] HermannCHEM VPNZI9424-27-86 10:37:003.8[facility] HermannCHEM PANEL 2020-08-29 10:37:10978Lwcwbpdb HermannCHEM EEOUW8304-96-46 10:37:0028[facility] HermannCHEM RBCFX3127-68-09 10:37:009.8[facility] HermannCHEM ZPGUO2052-29-91 10:37:0011.8[facility] HermannCHEM TCQNM1049-51-27 10:37:0059[facility] HermannCHEM LWJIT6645-63-52 10:37:002.9[facility] RprtvfmZWRBKDNSZJ9351-69-01 10:37:006.8 [facility] VvdepetYNUQINXHIE1729-91-85 10:37:004.47[facility] HermannHEMATOLOGY 2020-08-29 10:37:0010.6[facility] WfhqkakHBSWPDZPRN6512-85-60 10:37:0034.0[facility] MidoaueGZZOVXBAPL7901-94-65 10:37:0076.1[facility] HphmmaeZEYJCCNSFZ3035-28-78 10:37:00 Test Item Value Reference Range Interpretation Comments MCH (test code = MCH) 23.8 pg 27.0-31.0 [facility] KoxlnmtBNWJZIGIUQ9844-15-17 10:37:0031.3[facility]Y 2020-08-29 10:37:0018.2[facility] EeuewyxQRIHOHQCMP2101-70-51 10:37:03103Zlcdznmv GhppshaLXLGDRGSSR7358-24-96 10:37:007.5[facility] NicikoyATPBYEYTIG1220-94-09 10:37:00 Test Item Value Reference Range Interpretation Comments PT (test code = PT) 12.8 s 12.0-14.7 [facility] CynjbyhVGAWPYPBOX7672-15-48 10:37:00 Test Item Value Reference Range Interpretation Comments INR (test code = INR) 0.97 1 0.85-1.17 [facility] SgcyllzYCDYXAZOLO5176-38-04 10:37:00 Test Item Value Reference Range Interpretation Comments PTT (test code = PTT) 25.0 s 22.9-35.8 [facility] UxfxiptTFMSLBPHXL3667-03-74 10:37:0070.5[facility]annHEMATOLOGY 2020-08-29 10:37:0018.8[facility] ZrgqxazKWXULJMYDS3385-75-69 10:37:009.5[facility] VkoydmzAKVSNVTDPH3032-99-45 10:37:000.9[facility] DvhbebxYMOLUSWBVT4550-80-59 10:37:000.3[facility] ZuobluqDWAOPVOUOD0550-45-01 10:37:004.8[facility] EXDBUHUNCM9409-05-47 10:37:001.3[facility] OlvzqbbCFMZDAGXHK6758-82-04 10:37:000.6 [facility] XqdjzxfLGQMIPZCXX0287-81-35 10:37:000.1[facility]annHEMATOLOGY 2020-08-29 10:37:001+ *ABN*(08/29/20 5:37 AM)[facility] SrwlhakJRHBZUWBLU9824-18-04 10:37:00Not Detected (08/29/20 5:37 AM)[facility], GC, TV,PCR, IN CWNXI9136-89-71 15:38:00 Test Item Value Reference Range Interpretation Comments FT (test code = CHTR) Not detected (qualifier Not Detected N value) FT (test code = Not detected (qualifier Not Detected N NGONO) value) FT (test code = TRVG) Not detected (qualifier Not Detected N value) URINALYSIS WITH RSTRUAZUNSS5072-53-92 10:57:00 Test Item Value Reference Range Interpretation Comments Color (test code = UCOLR) Dk. Yellow Clarity (test code = UCLAR) Hazy Glucose (test code = UGLUC) NEGATIVE NEGATIVE N Bilirubin (test code = UBILI) NEGATIVE NEGATIVE N Ketones (test code = UKET) NEGATIVE NEGATIVE N Specific Elmo (test code = 1.025 1.005-1.030 A USPGR) [...]
[2022-01-01] MEDS ORDERED: ACETAMINOPHEN 500 MG TAB ONE (08:31)
[2022-01-01 08:35] LABS: MCV 85.3 fL (80-100); MPV 6.8 fL (7.6-11.3); RBC Red Blood Cell Count 4.92 M/uL (3.86-4.86)
[2022-01-01 08:50] LABS: Albumin 3.4 g/dL (3.4-5.0); Bilirubin Total 0.6 mg/dL (0.2-1.0); Potassium 3.3 mmol/L (3.5-5.1); Protein, Total 7.2 g/dL (6.4-8.2)
--- NOTE | 2022-01-01 08:54 | ER ---
Nurse's Notes [facility] Name: Fawn Fleming Age: 66 yrs Sex: Female : 1955 Arrival Date: 01/01/2022 Time: 07:37 Bed 19 Private MD: Diagnosis: ecchymosis;Pain in left hip Presentation: 01/01 07:48 Chief complaint: Patient states: "I was here for my MRI and they rescheduled it to Tuesday and while I was here I figured I'd come get my bruises checked out. I've been falling a lot lately, and that's why they are doing the MRI, but I haven't fell in a week and I just noticed these bruises this morning when I was getting dressed.". Coronavirus screen: Client denies travel out of the [place] in the last 14 days. Ebola Screen: Patient denies exposure to infectious person. Patient denies travel to an Ebola-affected area in the 21 days before illness onset. Initial Sepsis Screen: Does the patient meet any 2 criteria? No. Patient's initial sepsis screen is negative. Does the patient have a suspected source of infection? No. Patient's initial sepsis screen is negative. Risk Assessment: Do you want to hurt yourself or someone else? Patient reports no desire to harm self or others. Onset of symptoms is unknown. 07:48 Method Of Arrival: Ambulatory 07:48 Acuity: BLAYNE 4 ss Triage Assessment: 08:00 General: Appears in no apparent distress. Behavior is calm, cooperative. Pain: jg9 Complains of pain in lumbar area, left low back and right low back Pain currently is 8 out of 10 on a pain scale. Pain began years ago. EENT: No deficits noted. Neuro: No deficits noted. Cardiovascular: Rhythm is sinus bradycardia. Respiratory: No deficits noted. GI: No deficits noted. : No deficits noted. Derm: No deficits noted. Musculoskeletal: No deficits noted. Historical: - Allergies: 07:53 Bactrim DS; ss 07:53 butorphanol tartrate; ss 07:53 Fentanyl; ss 07:53 Reglan; ss 07:53 Stadol; ss 07:53 sulfamethoxazole (bulk); ss 07:53 TRIMETHOPRIM; ss - PMHx: 07:53 Anxiety; Atrial Fib; Bipolar disorder; Chronic pain; COPD; esophageal varices; ss Hepatitis; HIV; Hypertension; Migraines; Panic Attacks; - PSHx: 07:53 Appendectomy; Bilateral shoulder repair; Cholecystectomy; hernia repair; R wrist SX; ss - Immunization history:: Client reports receiving the 2nd dose of the Covid vaccine. - Social history:: Smoking status: Patient denies any tobacco usage or history of. Screenin:57 Abuse screen: Denies threats or abuse. Denies injuries from another. Nutritional jg9 screening: No deficits noted. Tuberculosis screening: No symptoms or risk factors identified. Fall Risk Fall in past 12 months (25 points). Assessment: 08:15 Reassessment: No changes from previously documented assessment. Patient requesting pain jg9 medication patient reports that she usually gets morphine when she comes, when asked what type of pain medication she is on at home the patient reported, "nothing". This nurse notified the provider of the request for pain medication and verbal order for [address] Dr. Yeung. The medication pulled and taken into room at which time patient refused saying, "I take Tylenol at home and it does nothing". 08:50 Reassessment: Patient stated, "I'm getting ready to walk out, where is the jg9 administrators office" when asked if she was referring to the ED account administrator she stated, "I want to know where the office is for the person that runs this hospital", I advised her that I was not sure and would have to find out-went to let provider know patient was threatening to leave at which time she was walking past us and out the door-provider was in the middle of discharging the patient, patient did not wait for d/c instructions. Vital Signs: 07:48 Resp 16; Temp 97.9(TE); Pulse Ox 99% on R/A; Weight 80.74 kg; Height 5 ft. 4 in. ss (162.56 cm); 08:09 BP 195 / 82; ss 08:15 BP 185 / 99; Pulse 46; Resp 17 S; Pulse Ox 100% on R/A; Pain 8/10; jg9 08:45 BP 183 / 83; Pulse 47; Resp 17 S; Pulse Ox 94% on R/A; Pain 8/10; jg9 07:48 Body Mass Index 30.55 (80.74 kg, 162.56 cm) ED Course: 07:37 Patient arrived in ED. rg4 07:38 Butch Yeung MD is Attending Physician. jr11 07:51 Karen Joseph, RN is Primary Nurse. jg9 07:53 Triage completed. 07:53 Arm band placed on right wrist. 08:00 Patient has correct armband on for positive identification. Bed in low position. Call jg9 light in reach. 08:10 Initial lab(s) drawn, by me, sent to lab. jg9 08:33 No apparent distress. Resting quietly. jg9 09:01 No provider procedures requiring assistance completed. jg9 09:02 Patient did not have IV access during this emergency room visit. jg9 Administered Medications: No medications were administered Medication: 09:02 VIS not applicable for this client. jg9 Outcome: 08:54 Discharge ordered by . jr11 09:01 Condition: unchanged jg9 09:01 Discharged to home ambulatory. jg9 09:01 Discharge instructions given to patient, patient left without discharge instructions Instructed on patient left without being educated Demonstrated understanding of patient left without being educated 09:03 Patient left the ED. jg9 Signatures: Sandra Cadet RN RN Polina Camarillo rg4 Karen Joseph, ASHLEY RN jg9 Butch Yeung MD MD jr11
--- NOTE | 2022-01-01 08:54 | EDPHYS ---
Physician Documentation [facility] Name: Fawn Fleming Age: 66 yrs Sex: Female : 1955 Arrival Date: 01/01/2022 Time: 07:37 Bed 19 Private MD: ED Physician Butch Yeung HPI: 01/01 07:47 This 66 yrs old Female presents to ER via Unassigned with complaints of Bruises. jr11 07:47 Pt on plavix, noticed bruising to bilateral UE, L thigh, L side torso, has not fallen jr11 in over 1 week but "falls a lot" due to chronic hip issues. . Denies bleeding gums or other bleeding concerns . Onset: The symptoms/episode began/occurred last week. Severity of symptoms: At their worst the symptoms were moderate in the emergency department the symptoms are unchanged. Pt states she was here for MRI and was rescheduled to Tuesday, Pt was not coming for ED care initially . Historical: - Allergies: 07:53 Bactrim DS; ss 07:53 butorphanol tartrate; ss 07:53 Fentanyl; ss 07:53 Reglan; ss 07:53 Stadol; ss 07:53 sulfamethoxazole (bulk); ss 07:53 TRIMETHOPRIM; ss - PMHx: 07:53 Anxiety; Atrial Fib; Bipolar disorder; Chronic pain; COPD; esophageal varices; ss Hepatitis; HIV; Hypertension; Migraines; Panic Attacks; - PSHx: 07:53 Appendectomy; Bilateral shoulder repair; Cholecystectomy; hernia repair; R wrist SX; ss - Immunization history:: Client reports receiving the 2nd dose of the Covid vaccine. - Social history:: Smoking status: Patient denies any tobacco usage or history of. ROS: 07:47 All other systems are negative. jr11 Exam: 07:47 Constitutional: This is a well developed, well nourished patient who is awake, alert, jr11 and in no acute distress. Head/Face: Normocephalic, atraumatic. Eyes: Extra-ocular motions intact. Lids and lashes normal. Conjunctiva and sclera are non-icteric and not injected. Cornea within normal limits. Periorbital areas with no swelling, redness, or edema. ENT: Nares patent. No nasal discharge, no septal abnormalities noted. Oropharynx with no redness, swelling, or masses, exudates, or evidence of obstruction, uvula midline. Mucous membranes moist. Chest/axilla: Normal chest wall appearance and motion. Nontender with no deformity. No lesions are appreciated. Cardiovascular: Regular rate and rhythm with a normal S1 and S2. No gallops, murmurs, or rubs. Normal PMI, no JVD. No pulse deficits. Respiratory: Lungs have equal breath sounds bilaterally, clear to auscultation and percussion. No rales, rhonchi or wheezes noted. No increased work of breathing, no retractions or nasal flaring. Abdomen/GI: Soft, non-tender, with normal bowel sounds. No distension or tympany. No guarding or rebound. No evidence of tenderness throughout. Back: No spinal tenderness. No costovertebral tenderness. Full range of motion. Skin: resolving ecchymosis to L inner thigh, L chest, bilateral UE, no purpura, appear as healing bruises Vital Signs: 07:48 Resp 16; Temp 97.9(TE); Pulse Ox 99% on R/A; Weight 80.74 kg; Height 5 ft. 4 in. ss (162.56 cm); 08:09 BP 195 / 82; ss 08:15 BP 185 / 99; Pulse 46; Resp 17 S; Pulse Ox 100% on R/A; Pain 8/10; jg9 08:45 BP 183 / 83; Pulse 47; Resp 17 S; Pulse Ox 94% on R/A; Pain 8/10; jg9 07:48 Body Mass Index 30.55 (80.74 kg, 162.56 cm) MDM: 07:45 Patient medically screened. [facility] 07:47 Differential Diagnosis Patient is a 66-year-old with multiple visits to the emergency [facility] department, was on her way to MRI when she noted that it was rescheduled. Patient states that then she noticed some bruising in her stomach thigh and legs and decided to check into the emergency department. Patient otherwise with chronic left hip pain that is being worked up as an outpatient. Denies any fevers chills denies any other complaints at this time. Patient does have a history of anxiety, given the bruising, will check labs. If normal, patient to continue watchful waiting. Patient likely has a bruising due to her being on Plavix in the fall over a week ago.. Data reviewed: vital signs, nurses notes. 08:52 ED course: No significant lab abnormalities. jr11 01/01 07:45 Order name: CBC w/o diff; Complete Time: 08:51 jr11 01/01 07:45 Order name: CMP; Complete Time: 08:51 jr11 01/01 07:45 Order name: PT-INR; Complete Time: 08:51 jr11 Administered Medications: No medications were administered Disposition Summary: 01/01/22 08:54 Discharge Ordered Location: Home jr11 Condition: Stable jr11 Diagnosis - ecchymosis jr11 - Pain in left hip jr11 Discharge Instructions: - Discharge Summary Sheet jr11 - Joint Pain jr11 - Contusion jr11 Forms: - Medication Reconciliation Form jr11 - Thank You Letter jr11 - Antibiotic Education jr11 - Prescription Opioid Use jr11 Signatures: Dispatcher [employer] EDSandra Bullard RN RN ss Rosillo, Jose, MD MD jr11
[2022-01-01 10:27] VITALS: TEMP 97.9
[2022-01-01 10:35] VITALS: BP 183/83; O2SAT 94
== END 2022-01-01 09:03 | disposition home or self-care (01) ==
LOC: ER 07:35
DX: R58 Hemorrhage, not elsewhere classified (principal); M25.552 Pain in left hip; Z21 Asymptomatic human immunodeficiency virus [HIV] infection status; I10 Essential (primary) hypertension; Z88.1 Allergy status to other antibiotic agents; Z88.2 Allergy status to sulfonamides; Z88.5 Allergy status to narcotic agent; Z88.8 Allergy status to other drugs, medicaments and biological substances
CPT/HCPCS: 36415; 80053; 85027; 85610; 99284

== ENCOUNTER 2022-01-04 18:16 | Emergency (ER) | payer OTHER ==
--- OUTSIDE RECORDS SUMMARY | 2022-01-04 18:26 | XMS REPORT | Continuity of Care Document ---
:1955 Author Organization [facility] t Address [address] [place] [address] Care Team Providers Name Role Phone Urmila Rahman Primary Care Physician Mike Lund Attending Clinician Unavailable ELAN LIRA Attending Clinician Unavailable SANTIAGO MAST Attending Clinician Unavailable Doctor Unassigned, Jermyn Attending Clinician Unavailable Bill GUO Attending Clinician Unavailable Bill Rose Attending Clinician [facility] Attending Clinician Unavailable Santiago Sanchez Attending Clinician Beverly Layton MD Attending Clinician Eliseo Arce MD Attending Clinician Carol Ann MATURITY CHECKER, Sarai Lieberman Attending Clinician [phone] Prabhu SANCHEZ, Ashly Attending Clinician Unavailable Robbi Bal Attending Clinician Monica Rodas MA Attending Clinician Unavailable Agustina Ortiz MA Attending Clinician Unavailable Kirit Flood MD, V. Attending Clinician BEVERLY LAYTON Attending Clinician Unavailable DO PORSHA STREETER Attending Clinician Unavailable Rahman UrmilaBibianaFrancisco Kristen Admitting Clinician Unavailable Bill GUO Admitting Clinician Unavailable Mike Lund Admitting Clinician Unavailable ELISEO ARCE Admitting Clinician Unavailable DO PORSHA STREETER Admitting Clinician Unavailable Payers Payer Name Policy Type Policy Number Effective Date Expiration Date S [facility] COMMUNITY [id number] 2012 STARPLUS OON 00:00:00 EXCEPT [facility] DUAL [id number] 2020 COMP HMO D SNP 00:00:00 MEDICAID OF [place] [id number] 2020 00:00:00 Problems Condition Condition Condition Status Onset Resolution Last Treating Co mments Source Name Details Category Date Date Treatment Clinician Date Gastropare Gastropare Disease Active Overview : Methodi sis sis 4-[address] 00:00: [facility] 00 note l might be different from the original. Added automatic ally from request for surgery [id number] Dysphagia Dysphagia Disease Active Overview: Methodi 4-[address] 00:00: [facility] this [facility] 00 note l might be different from the original. 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 2020-10-15 Memoria PVI PVI 3-30 17:07:00 l ABLATION ABLATION 00:00: Patel soares W/ CARTO / W/ CARTO / 00 GA / T GA / T Active 08/19/2020 [facility] Food Food Disease Active [...] [facility] hoxazole 1-25 Clear 00:00: Garcia 00 [facility] trimetho DA Active SV [facility] prim 1- Clear 00:00: Garcia 00 [facility] codeine DA Active SV N/V [facility] 1-25 Clear 00:00: Garcia [facility] Metoclop Propensi Active [place] ramide [...] Stop Date Source Natural father Hypertension [facility] Natural father Kidney disease [facility] Natural mother [facility] Social History Social Habit Start Date Stop Date Quantity Comments Source History [facility] Alcohol Comment History of tobacco Smoker Method ist use Hospital History [facility]aeism Alcohol Frequency Hospita l History SDKS [facility] Alcohol Std Drinks Hospit al History SDKS [facility] Alcohol Binge Hospital Exposure to 2021-12-02 2021-12-12 Not sure University SARS-CoV-2 (event) 00:00:00 23:54:00 [facility] Alcohol intake 2021-07-14 2021-07-14 Ex-drinker [facility] 00:00:00 00:00:00 (finding) Cigarettes smoked 2020-09-05 2020-09-[address] current (pack per 00:00:00 00:00:00 Hospita l day) - Reported Cigarette 2020-09-05 2020-09-05 [facility] pack-years 00:00:00 00:00:00 Hospital Tobacco use and 2020-08-06 2020-08-06 Former smokeless Uni versity of exposure 00:00:00 00:00:00 tobacco user [facility] Tobacco Comment 2015-02-14 2015-02-14 Smokes approx 1-2 Un iversity of 00:00:00 00:00:00 cigarettes per [facility] day when she Branch smokes Sex [birth year] [facility] 00:00:00 00:00:00 Smoking Status Start Date Stop Date Source Ex-smoker 2020-08-06 00:00:00 2020-08-06 00:00:00 [facility] Medications Ordered Filled Start Stop Current Ordering Indication Dosage Frequency Signature Comments Components Source Medication Medication Date Date Medication? Clinician (SIG) Name Name methocarbam No 500mg 500 mg, U nivers oL 12-13 Oral, ity of (ROBAXIN) 07:45: 06:35 ONCE, [place] 500 [place] :00 dose, On Medic al mg [facility] 12/13/21 at 0245, Routine ketorolac No 30mg 30 mg, Unive rs (TORADOL) 12-13 Intramuscu ity of injection 07:45: 06:34 [place], ONCE, [place] 30 mg 00 :00 1 dose, On Medical [facility] 12/13/21 at 0245, JOE naproxen 2021-0 Yes [id number] 500mg Take 1 U nivers (NAPROSYN) 7-24 tablet by ity of 500 mg 00:00: mouth in [place] tablet 00 the Medical morning Branch and 1 tablet in the evening. Take with meals. methocarbam 2-0 Yes [id number] 500mg Take 1 Univers oL 500 mg 7-24 tablet by ity o f tablet 00:00: mouth 4 00 (four) Medical times Branch daily. naproxen 2021-0 Yes [id number] 500mg Take 1 U nivers (NAPROSYN) 7-24 tablet by ity of 500 mg 00:00: mouth in [place] tablet 00 the Medical morning Branch and 1 tablet in the evening. Take with meals. methocarbam 2021-0 Yes [id number] 500mg Take 1 Univers oL 500 mg 7-24 tablet by ity o f tablet 00:00: mouth 4 00 (four) Medical times Branch daily. hydralAZINE 2021-0 Yes 25mg Take 25 mg Univers (APRESOLINE 7-01 by mouth ity of ) 25 mg 08:47: daily. [address] Branch hydralAZINE 2021-0 Yes 25mg Take 25 mg Univers (APRESOLINE 7-01 by mouth ity of ) 25 mg 08:47: daily. [address] Branch hydralAZINE 2021-0 Yes 25mg Take 25 mg Univers (APRESOLINE 7-01 by mouth ity of ) 25 mg 08:47: daily. [address] Branch buPROPion 2021-0 Yes [id number] 150mg Take 1 U nivers XL 4-12 tablet by ity of (WELLBUTRIN 00:00: mouth [place] XL) 150 mg 00 daily. Medical 24 hr Branch tablet busPIRone 2021-0 Yes [id number] 30mg Take 1 Un matt 30 mg 4-12 tablet by ity of tablet 00:00: mouth 2 [place] 00 (two) Medical times Branch daily. SERTraline 2-0 Yes [id number] 200mg Take 2 Univers 100 mg 4-12 tablets by ity of tablet 00:00: mouth [place] 00 daily. Medical Branch buPROPion 2021-0 Yes [id number] 150mg Take 1 U nivers XL 4-12 tablet by ity of (WELLBUTRIN 00:00: mouth [place] XL) 150 mg 00 daily. Medical 24 hr Branch tablet busPIRone 2021-0 Yes [id number] 30mg Take 1 Un matt 30 mg 4-12 tablet by ity of tablet 00:00: mouth 2 [place] 00 (two) Medical times Branch daily. SERTraline 2021-0 Yes [id number] 200mg Take 2 Univers 100 mg 4-12 tablets by ity of tablet 00:00: mouth [place] 00 daily. Medical Branch buPROPion 2021-0 Yes [id number] 150mg Take 1 U nivers XL 4-12 tablet by ity of (WELLBUTRIN 00:00: mouth [place] XL) 150 mg 00 daily. Medical 24 hr Branch tablet busPIRone 2021-0 Yes [id number] 30mg Take 1 Un matt 30 mg 4-12 tablet by ity of tablet 00:00: mouth 2 [place] 00 (two) Medical times Branch daily. SERTraline 2021-0 Yes [id number] 200mg Take 2 Univers 100 mg 4-12 tablets by ity of tablet 00:00: mouth [place] 00 daily. Medical Branch raltegravir 0 Yes [id number] 400mg Take 1 Univers (ISENTRESS) 3-28 tablet by ity of 400 mg 00:00: mouth 2 [place] tablet 00 (two) Medical times Branch daily. raltegravir 2021-0 Yes [id number] 400mg Take 1 Univers (ISENTRESS) 3-28 tablet by ity of 400 mg 00:00: mouth 2 [place] tablet 00 (two) Medical times Branch daily. raltegravir 2021-0 Yes [id number] 400mg Take 1 Univers (ISENTRESS) 3-28 tablet by ity of 400 mg 00:00: mouth 2 [place] tablet 00 (two) Medical times Branch daily. raltegravir 2021-0 Yes [id number] 400mg Take 1 Univers (ISENTRESS) 3-28 tablet by ity of 400 mg 00:00: mouth 2 [place] tablet 00 (two) Medical times Branch daily. LORazepam 1 2021-0 Yes [id number] 1mg Take 1 Univers mg tablet 3-21 tablet by ity o f 00:00: mouth 3 [place] 00 (three) Medical times Branch daily as needed (anxiety). raltegravir 2021-0 Yes 400mg Q.5D Take 400 U T [...] times a tablet day. buPROPion 2021- No [id number] 150mg Take 1 Univers XL -24 04-12 tablet by ity of (WELLBUTRIN 00:00: 00:[place] XL) 150 mg 00 :00 daily. Medical 24 hr Branch tablet busPIRone 2021- No [id number] 30mg Take 1 U nivers 30 mg 24 -12 tablet by ity of tablet 00:00: 00:00 mouth 2 [place] 00 :00 (two) Medical times Branch daily. SERTraline 2021- No [id number] 200mg Take 2 Univers 100 mg -24 -12 tablets by ity of tablet 00:00: 00:00 mouth [place] 00 :00 daily. Medical Branch emtricitabi Yes [id number] Take one Univers ne-tenofovi 1-20 po daily ity of r alafen 00:00: [place] (DESCOVY) 00 Medical tablet Branch emtricitabi Yes [id number] Take one Univers ne-tenofovi 1-20 po daily ity of r alafen 00:00: [place] (DESCOVY) 00 Medical tablet Branch emtricitabi Yes [id number] Take one Univers ne-tenofovi 1-20 po daily ity of r alafen 00:00: [place] (DESCOVY) 00 Medical tablet Branch emtricitabi Yes [id number] Take one Univers ne-tenofovi 1-20 po daily ity of r alafen 00:00: [place] (DESCOVY) 00 Medical tablet Branch metoprolol 0 Yes [id number] Take 1 [facility] tartrate 7-26 tablet Health (Lopressor) 00:00: (100 mg 100 MG 00 total) by tablet mouth 2 (two) times a day AND 0.5 tablets (50 mg total) every night. metoprolol Yes [id number] Take 1 [facility] tartrate 7-26 tablet Health [...] area in groin) hydrALAZINE 0 Yes 50mg Q.[id number] Take 50 mg Methodi (APRESOLINE 7-[id number] mouth [address] ) 50 MG [...] mouth Hospita tablet 25 daily. l nystatin-tr 0 Yes [id number] Apply to [facility] 7-06 area(s) 3 ity of cream 00:00: (three) [place] 00 times Medical daily. Branch nystatin-tr 0 [id number] ity of cream 00:00: (three) [place] 00 times Medical daily. Branch nystatin-tr 2020-0 Yes [id number] [facility] area[facility] 3 ity of cream 00:00: (three) [place] 00 times Medical daily. Branch nystatin-tr 2020-0 Yes [id number] [facility] area[facility] 3 ity of cream 00:00: (three) [place] 00 times Medical daily. Branch budesonide- 2020-0 2020- No 1{puff} QD Inhale 1 Methodi formoteroL 6-25 06-[address] (SYMBICORT) 14:37: 00:00 morning. H ospita 160-4.5 02 :00 l mcg/actuati on inhaler hydrALAZINE 2020-0 Yes [id number] 50mg Q.[id number] Take 1 UT (Apresoline 6- [id number] tablet (50 Health ) 50 MG 00:00: 3D mg total) tablet 00 by mouth 3 (three) times a day. hydrALAZINE 2020-0 Yes [id number] 50mg Q.[id number] Take 1 [facility] (Apresoline 6- [id number] tablet (50 Health ) 50 MG 00:00: [...] 00:00: ointment 00 nystatin 2020-0 2021- No [id number] Q.25D Take 5 mL Methodi (MYCOSTATIN -17 06-01 (500,000 st ) 100,000 00:00: 04:59 [...] e 4-10 Tablet l 14:00: should not [place] 00 be chewed or crushed. (Same as: [...] ia 4-10 (Same as: l 14:00: Zoloft) [place] 00 pantoprazol No Notes: Caesar lisa e 4-10 Tablet l 14:00: should not Marty 00 be chewed or crushed. (Same as: Protonix) Amiodarone No Notes: Memor ia 4-10 (Same as: l 14:00: Cordarone) [place] 00 Amlodipine No Notes: Memor ia 4-10 (Same as: l 14:00: Norvasc) [place] 00 emtricitabi No Notes: Caesar lisa ne 200 MG / 4-10 (Same as: l tenofovir 14:00: Descovy) Herm ariel alafenamide 00 Non-formul 25 MG Oral nancy Tablet [Descovy] Sertraline No Notes: Memor ia 4-10 (Same as: l 14:00: Zoloft) Marty 00 pantoprazol No Notes: Caesar lisa e 4-10 Tablet l 14:00: should not [place] 00 be chewed or crushed. (Same as: Protonix) Amiodarone No Notes: Memor ia 4-10 (Same as: l 14:00: Cordarone) [place] 00 Amlodipine No Notes: Memor ia 4-10 (Same as: l 14:00: Norvasc) [place] 00 emtricitabi No Notes: Caesar lisa ne [...] ia 4-10 (Same as: l 14:00: Norvasc) [place] emtricitabi No Notes: Caesar lisa ne 200 MG / 4-10 (Same as: l tenofovir 14:00: Descovy) Herm ariel alafenamide 00 Non-formul 25 MG Oral nancy Tablet [Descovy] Sertraline No Notes: Memor ia 4-10 (Same as: l 14:00: Zoloft) Marty pantoprazol No Notes: Caesar lisa e 4-10 Tablet l 14:00: should not [place] 00 be chewed or crushed. (Same as: Protonix) Amiodarone No Notes: Memor ia 4-10 (Same as: l 14:00: Cordarone) Marty 00 Amlodipine No Notes: Memor ia 4-10 (Same as: l 14:00: Norvasc) [place] emtricitabi No Notes: Caesar lisa ne 200 [...] ia 4-10 (Same as: l 14:00: Cordarone) [place] 00 Sucralfate No Notes: Susan Corbin emoria 4-10 [...] 0.9% 4-10 (Same as: l 02:00: BD [place] Posiflush) Eliquis No Notes: Memoria 4-10 Same [...] 0.9% 4-10 (Same as: l 02:00: BD [place] Posiflush) Eliquis No Notes: Memoria 4-10 Same as: l 02:00: Eliquis [place] 00 Hydralazine No Notes: Caesar lisa Hydrochlori 4-10 (Same as: l de 50 MG 02:00: Apresoline Her mitchell Oral Tablet 00 ) May interfere w/enteral feedings Take With Food Sucralfate No Notes: May M emoria 4-10 interfere l 02:00: w/enteral [place] 00 feeds - Take 1 hr before or 2 hr after antacids, dairy pdt, meals & minerals - On empty stomach. For patients unable to swallow tablet, dissolve in 10mL - 30mL of water or juice and stir before giving. (Same As: Carafate) Saline No Notes: Memoria Flush 0.9% 4-10 (Same as: l 02:00: BD [place] 00 Posiflush) Eliquis No Notes: Memoria 4-10 Same as: l 02:00: Eliquis Marty Hydralazine No Notes: Caesar lisa Hydrochlori 4-10 (Same as: l de 50 MG 02:00: Apresoline Her mitchell Oral Tablet 00 ) May interfere w/enteral feedings Take With Food Sucralfate No Notes: May M emoria 4-10 interfere l 02:00: w/enteral [place] 00 feeds - Take 1 hr before [...] Memoria 4-10 Same as: l 02:00: Eliquis [place] Hydralazine No Notes: Caesar lisa Hydrochlori 4-10 [...] 0.9% 4-10 (Same as: l 02:00: BD [place] 00 Posiflush) Eliquis No Notes: Memoria 4-10 Same as: l 02:00: Eliquis [place] 00 Hydralazine No Notes: Caesar lisa Hydrochlori [...] not exceed l #3 00:12: 4gm/day of [place] acetaminop hen. (Same as: Tylenol with Codeine [...] not exceed l #3 00:12: 4gm/day of [place] acetaminop hen. (Same as: Tylenol with Codeine # 3) Buspirone No Notes: Memori a 4-09 (Same As: l 22:00: BuSpar) Lisinopril No 40 mg, 1 Mem oria 4- tab, l 22:00: Route: PO, [place] Drug form: TAB, BID, Dosing Weight 97.273, kg, Start date: 08/29/20 17:00:00 CDT, Duration: 30 day, Stop date: 09/28/20 9:00:00 CDT metoprolol No 100 mg, 1 Me moria tartrate - tab, l 22:00: Route: PO, [place] 00 Drug form: TAB, BID, Dosing Weight [...] oria 4-09 tab, l 22:00: Route: PO, [place] Drug form: TAB, BID, Dosing Weight 97.273, kg, Start date: 08/29/20 17:00:00 CDT, Duration: 30 day, Stop date: 09/28/20 9:00:00 CDT metoprolol 1-0 No 100 mg, 1 Me moria tartrate -09 tab, l 22:00: Route: PO, [place] 00 Drug form: TAB, BID, Dosing Weight 97.273, kg, Start date: 08/29/20 17:00:00 CDT, Duration: 30 day, Stop date: 09/28/20 9:00:00 CDT Buspirone 2020-0 No Notes: Memori a 08-29 (Same As: l 22:00: BuSpar) Raltegravir 2020-0 No 400 mg, 1 M emoria 400 MG Oral - tab, l Tablet 22:00: Route: PO, Skylar [ISENTRE] 00 Drug form: TAB, BID, Dosing Weight 97.273, kg, Start date: 08/29/20 17:00:00 CDT, Duration: 30 day, Stop date: 09/28/20 9:00:00 CDT, 0 Lisinopril 2020-0 No 40 mg, 1 Mem oria 4-09 tab, l 22:00: Route: PO, [place] 00 Drug form: TAB, BID, Dosing Weight [...] oria 4-09 tab, l 22:00: Route: PO, [place] 00 Drug form: TAB, BID, Dosing Weight [...] oria 4-09 tab, l 22:00: Route: PO, [place] Drug form: TAB, BID, Dosing Weight 97.273, kg, Start date: 08/29/20 17:00:00 CDT, Duration: 30 day, Stop date: 09/28/20 9:00:00 CDT metoprolol 1-0 No 100 mg, 1 Me moria tartrate 4-09 tab, l 22:00: Route: PO, [place] Drug form: TAB, BID, Dosing Weight 97.273, [...] a 4-09 (Same As: l 22:00: BuSpar) [place] 00 Lisinopril No 40 mg, 1 Mem oria 4-09 tab, l 22:00: Route: PO, [place] 00 Drug form: TAB, BID, Dosing Weight 97.273, kg, Start date: 08/29/20 17:00:00 CDT, Duration: 30 day, Stop date: 09/28/20 9:00:00 CDT metoprolol No 100 mg, 1 Me moria tartrate 4- tab, l 22:00: Route: PO, [place] 00 Drug form: TAB, BID, Dosing Weight [...] Notes: Memoria 4-09 (Same l 17:07: as:MORPhin [place] 00 e Sulfate) Morphine No Notes: Memoria 4-09 (Same l 17:07: as:MORPhin Marty 00 e Sulfate) Morphine No Notes: Memoria 4-09 (Same l 17:07: as:MORPhin Marty 00 e Sulfate) Morphine No Notes: Memoria 4-09 (Same l 17:07: as:MORPhin [place] 00 e Sulfate) Morphine 2021-0 No Notes: Memoria 08-29 (Same l 17:07: [...] tab, PO, l oral 15:27: Daily, # [place] enteric 00 30 tab, 0 coated Refill(s), tablet Pharmacy: [facility] [place] 149, 162.56, cm, 08/29/20 5:30:00 CDT, Height, 97.273, kg, 08/29/20 5:30:00 CDT, Weight pantoprazol 2020-0 Yes 40 mg = 1 M emoria e 40 mg 4-09 tab, PO, l oral 15:27: Daily, # Marty enteric 00 30 tab, 0 coated Refill(s), tablet Pharmacy: [facility] [place] 149, 162.56, cm, 08/29/20 5:30:00 CDT, Height, 97.273, kg, 08/29/20 5:30:00 CDT, Weight pantoprazol 2020-0 Yes 40 mg = 1 M emoria e 40 mg 4-09 tab, PO, l oral 15:27: Daily, # [place] enteric 00 30 tab, 0 coated Refill(s), tablet Pharmacy: [facility] [place] 149, 162.56, cm, 08/29/20 5:30:00 CDT, Height, 97.273, kg, 08/29/20 5:30:00 CDT, Weight pantoprazol 2020-0 Yes 40 mg = 1 M emoria e 40 mg 4-09 tab, PO, l oral 15:27: Daily, # Marty enteric 00 30 tab, 0 coated Refill(s), tablet Pharmacy: [facility] [place] 149, 162.56, cm, 08/29/20 5:30:00 CDT, Height, 97.273, kg, 08/29/20 5:30:00 CDT, Weight pantoprazol 2020-0 Yes 40 mg = 1 M emoria e 40 mg 4-09 tab, PO, l oral 15:27: Daily, # Marty enteric 00 30 tab, 0 coated Refill(s), tablet Pharmacy: [facility] [place] 149, 162.56, cm, 08/29/20 5:30:00 CDT, Height, 97.273, kg, 08/29/20 5:30:00 CDT, Weight pantoprazol 2020-0 Yes 40 mg = 1 M emoria e 40 mg 4-09 tab, PO, l oral 15:27: Daily, # Marty enteric 00 30 tab, 0 coated Refill(s), tablet Pharmacy: [facility] [place] 149, 162.56, cm, 08/29/20 5:30:00 CDT, Height, 97.273, kg, 08/29/20 5:30:00 CDT, Weight pantoprazol 2020-0 Yes 40 mg = 1 M emoria e 40 mg 4-09 tab, PO, l oral 15:27: Daily, # Marty enteric 00 30 tab, 0 coated Refill(s), tablet Pharmacy: [place] [id number], 162.56, cm, 08/29/20 5:30:00 CDT, Height, 97.273, [...] Skylar nn 00 tab, 0 Refill(s), Pharmacy: [place] [id number], 162.56, cm, 08/29/20 5:30:00 CDT, Height, 97.273, kg, 08/29/20 5:30:00 CDT, Weight pantoprazol 1-0 No 40 mg = 1 M emoria e 40 mg 4-09 tab, PO, l oral 15:26: Daily, # [place] enteric 00 30 tab, 0 coated Refill(s) tablet sucralfate 2020-0 Yes 1 gm = 1 Mem oria 1 g oral 4-09 tab, PO, l tablet 15:26: Q12H, # 28 Skylar nn 00 tab, 0 Refill(s), Pharmacy: [facility] [place] 149, 162.56, cm, 08/29/20 5:30:00 CDT, Height, [...] Skylar nn 00 tab, 0 Refill(s), Pharmacy: [facility] [place] 149, 162.56, cm, 08/29/20 5:30:00 CDT, Height, 97.273, kg, 08/29/20 5:30:00 CDT, Weight pantoprazol 2020-0 No 40 mg = 1 M emoria e 40 mg 4-09 tab, PO, l oral 15:26: Daily, # [place] enteric 00 30 tab, 0 coated Refill(s) tablet sucralfate 2020-0 Yes 1 gm = 1 Mem oria 1 g oral 4-09 tab, PO, l tablet 15:26: Q12H, # 28 Skylar nn 00 tab, 0 Refill(s), Pharmacy: [facility] [place] 149, 162.56, cm, 08/29/20 5:30:00 CDT, Height, 97.273, kg, 08/29/20 5:30:00 CDT, Weight pantoprazol 2020-0 No 40 mg = 1 M emoria e 40 mg 4-09 tab, PO, l oral 15:26: Daily, # [place] enteric 00 30 tab, 0 coated Refill(s) tablet sucralfate 2020-0 Yes 1 gm = 1 Mem oria 1 g oral 4-09 tab, PO, l tablet 15:26: Q12H, # 28 Skylar nn 00 tab, 0 Refill(s), Pharmacy: [facility] [place] 149, 162.56, cm, 08/29/20 5:30:00 CDT, Height, 97.273, kg, 08/29/20 5:30:00 CDT, Weight pantoprazol No 40 mg = 1 M emoria e 40 mg 4-09 tab, PO, l oral 15:26: Daily, # [place] enteric 00 30 tab, 0 coated Refill(s) tablet sucralfate Yes 1 gm = 1 Mem oria 1 g oral 4-09 tab, PO, l tablet 15:26: Q12H, # 28 Skylar nn 00 tab, 0 Refill(s), Pharmacy: [facility] [place] 149, 162.56, cm, 08/29/20 5:30:00 CDT, Height, 97.273, kg, 08/29/20 5:30:00 CDT, Weight pantoprazol No 40 mg = 1 M emoria e 40 mg 4-09 tab, PO, l oral 15:26: Daily, # [place] enteric 00 30 tab, 0 coated Refill(s) tablet sucralfate Yes 1 gm = 1 Mem oria 1 g oral 4-09 tab, PO, l tablet 15:26: Q12H, # 28 Skyalr nn 00 tab, 0 Refill(s), Pharmacy: [facility] [place] 149, 162.56, cm, 08/29/20 5:30:00 CDT, Height, [...] 0.9% 4-09 (Same as: l 15:25: BD [place] 00 Posiflush) Saline No Notes: Memoria Flush 0.9% 4-09 (Same as: l 15:25: BD Marty 00 Posiflush) Lorazepam No Notes: Memori a 4-09 (Same as: l 15:25: Ativan) Marty Lorazepam No Notes: Memori a 4-09 (Same as: l 15:25: Ativan) Marty Saline No Notes: Memoria Flush 0.9% 4-09 (Same as: l 15:25: BD [place] 00 Posiflush) Lorazepam No Notes: Memori a 4-09 (Same as: l 15:25: Ativan) [place] 00 Saline No Notes: Memoria Flush 0.9% 4-09 (Same as: l 15:25: BD Marty 00 Posiflush) Lorazepam No Notes: Memori a 4-09 (Same as: l 15:25: Ativan) [place] 00 Saline No Notes: Memoria Flush 0.9% [...] Drug form: l mg + 15:00: INJ, [place] Dosing Weight 97.3, kg, Start date: 08/29/20 10:00:00 CDT, Stop date: 08/29/20 11:00:00 CDT Isuprel HCl No Route: IV, Memoria (ANES) 0.2 4-09 Drug form: l mg + 15:00: INJ, Matry 00 Dosing Weight 97.3, kg, Start date: [...] ONCE, Stop date: 08/29/20 9:29:00 CDT propofol 0 No Route: IV, Mem [...] INJ, ONCE, Stop date: 08/29/20 9:18:00 CDT Ondansetron No 4 mg, Memor ia 08-29 Route: l 14:01: IVP, ONCE, Dosing Weight 97.273, kg, PRN Nausea & Vomiting, Start date: 08/29/20 9:01:00 CDT Labetalol No 10 mg, Memori a [...] lisa 08-29 Route: l 14:01: IVP, PRN, [place] 00 Dosing Weight 97.273, kg, PRN Benzodiaze pine Reversal, Initial dose, Start date: 08/29/20 9:01:00 CDT, Duration: 30 day, Stop date: 09/28/20 9:00:00 CDT Naloxone 1-0 No 0.4 mg, Memori a 08-29 Route: l 14:01: IVP, [place] 00 Q2MIN, Dosing Weight 97.273, kg, PRN [...] 08-29 Route: PO, l 14:01: Drug form: [place] 00 TAB, ONCE, Dosing Weight 97.273, kg, [...] oria ne 08-29 Route: l 14:01: IVP, [place] 00 Q5Min, Dosing Weight 97.273, kg, PRN [...] oria ne 08-29 Route: l 14:01: IVP, [place] 00 Q5Min, Dosing Weight 97.273, kg, PRN [...] lisa 08-29 Route: l 14:01: IVP, PRN, [place] 00 Dosing Weight 97.273, kg, PRN Benzodiaze pine Reversal, Initial dose, Start date: 08/29/20 9:01:00 CDT, Duration: 30 day, Stop date: 09/28/20 9:00:00 CDT Ondansetron 2021-0 No 4 mg, Memor ia 08-29 Route: l 14:01: IVP, ONCE, [place] 00 Dosing Weight 97.273, kg, PRN Nausea & Vomiting, Start date: 08/29/20 9:01:00 CDT Naloxone 1-0 No 0.4 mg, Memori a 08-29 Route: l 14:01: IVP, [place] 00 Q2MIN, Dosing Weight 97.273, kg, PRN [...] Memori a 08-29 Route: l 14:01: IVP, [place] 00 Q5Min, Dosing Weight 97.273, kg, PRN Elevated BP, Start date: 08/29/20 9:01:00 CDT, Duration: 5 doses or times, Stop date: Limited # of times Acetaminoph 2020-0 No 1,000 mg, M emoria en 08-29 Route: PO, l 14:01: Drug form: [place] 00 TAB, ONCE, Dosing Weight 97.273, kg, [...] oria ne 08-29 Route: l 14:01: IVP, [place] 00 Q5Min, Dosing Weight 97.273, kg, PRN Pain Score 7-10, Start date: 08/29/20 9:01:00 CDT, Duration: 4 doses or times, Stop date: Limited # of times Flumazenil 1-0 No 0.2 mg, Caesar lisa 08-29 Route: l 14:01: IVP, PRN, [place] 00 Dosing Weight 97.273, kg, PRN Benzodiaze [...] Memori a 08-29 Route: l 14:01: IVP, [place] 00 Q5Min, Dosing Weight 97.273, kg, PRN [...] oria ne 08-29 Route: l 14:01: IVP, [place] 00 Q5Min, Dosing Weight 97.273, kg, PRN [...] Memori a 08-29 Route: l 14:01: IVP, [place] 00 Q2MIN, Dosing Weight 97.273, kg, PRN Narcotic Reversal, Start date: 08/29/20 9:01:00 CDT, Duration: 8 doses or times, Stop date: Limited # of times Ondansetron 1-0 No 4 mg, Memor ia 08-29 Route: l 14:01: IVP, ONCE, [place] 00 Dosing Weight 97.273, kg, PRN Nausea [...] 08-29 Route: PO, l 14:01: Drug form: [place] 00 TAB, ONCE, Dosing Weight 97.273, kg, [...] lisa 08-29 Route: l 14:01: IVP, PRN, [place] 00 Dosing Weight 97.273, kg, PRN Benzodiaze [...] Memori a 08-29 Route: l 14:01: IVP, Whitakers 00 Q5Min, Dosing Weight 97.273, kg, PRN Elevated BP, Start date: 08/29/20 9:01:00 CDT, Duration: 5 doses or times, Stop date: Limited # of times Acetaminoph 1-0 No 1,000 mg, M emoria en 08-29 Route: PO, l 14:01: Drug form: Whitakers 00 TAB, ONCE, Dosing Weight 97.273, kg, [...] oria ne 08-29 Route: l 14:01: IVP, Whitakers 00 Q5Min, Dosing Weight 97.273, kg, PRN [...] 08-29 Drug form: l 13:42: INJ, ONCE, Whitakers Stop date: 08/29/20 8:42:00 CDT fentaNYL 2020-0 No Route: IV, Mem oria (ANES) 08-29 Drug form: l 13:42: INJ, ONCE, Marty Stop date: 08/29/20 8:42:00 CDT fentaNYL 2020-0 No Route: IV, Mem oria (ANES) 08-29 Drug form: l 13:42: INJ, ONCE, Whitakers Stop date: 08/29/20 8:42:00 CDT norepinephr 2020-0 No Route: IV, Memoria ine (ANES) 08-29 Drug form: l 10 13:15: INJ, Start Whitakers microgram date: 08/29/20 8:15:00 CDT, Stop date: [...] Drug form: l 10 13:15: INJ, Start Whitakers microgram 00 date: 08/29/20 8:15:00 CDT, Stop date: 08/29/20 9:15:00 CDT norepinephr 2020-0 No Route: IV, Memoria ine (ANES) 08-29 Drug form: l 10 13:15: INJ, Start Marty microgram 00 date: 08/29/20 8:15:00 CDT, Stop date: 08/29/20 9:15:00 CDT norepinephr 2020-0 No Route: IV, Memoria ine (ANES) 08-29 Drug form: l 10 13:15: INJ, Start Whitakers microgram 00 date: 08/29/20 8:15:00 CDT, Stop date: 08/29/20 9:15:00 CDT Sodium 2020-0 No Route: IV, Memor ia Chloride 4-09 Total l 0.9% IV 12:30: Volume: Whitakers (ANES) 1000 00 1,000, mL Start date: 08/29/20 7:30:00 CDT, Stop date: 08/29/20 8:30:00 CDT Sodium 2020-0 No Route: IV, Memor ia Chloride 4-09 Total l 0.9% IV 12:30: Volume: Whitakers (ANES) 1000 00 1,000, mL Start date: 08/29/20 7:30:00 CDT, Stop date: 08/29/20 8:30:00 CDT Sodium 2020-0 No Route: IV, Memor ia Chloride 4-09 Total l 0.9% IV 12:30: Volume: Whitakers (ANES) 1000 00 1,000, mL Start date: 08/29/20 7:30:00 CDT, Stop date: 08/29/20 8:30:00 CDT Sodium 2020-0 No Route: IV, Memor ia Chloride 4-09 Total l 0.9% IV 12:30: Volume: Whitakers (ANES) 1000 00 1,000, mL Start date: [...] PO, l Hydrochlori 11:42: Q24H, # 30 Whitakers de 150 MG 00 tab, 0 Extended Refill(s) Release Tablet 24 HR Yes 150 mg = 1 Memori a Bupropion 4-09 tab, PO, l Hydrochlori 11:42: Q24H, # 30 Whitakers de 150 MG 00 tab, 0 Extended [...] PO, l Hydrochlori 11:42: Q24H, # 30 Whitakers de 150 MG 00 tab, 0 Extended Refill(s) Release Tablet 24 HR Yes 150 mg = 1 Memori a Bupropion 4-09 tab, PO, l Hydrochlori 11:42: Q24H, # 30 Marty de 150 MG 00 tab, 0 Extended Refill(s) Release Tablet 24 HR Yes 150 mg = 1 Memori a Bupropion 4-09 tab, PO, l Hydrochlori 11:42: Q24H, # 30 Whitakers de 150 MG 00 tab, 0 Extended Refill(s) Release Tablet apixaban 2020-0 Yes 5 mg, PO, Me moria MG Oral 4- Q12H, tab, l Tablet 11:41: 0 Whitakers [Eliquis] 00 Refill(s), For Atrial Fibrilatio n [...] 4-09 Q12H, tab, l Tablet 11:41: 0 Whitakers [Eliquis] 00 Refill(s), For Atrial Fibrilatio n apixaban 5 2020-0 Yes 5 mg, PO, Me moria MG Oral 4-09 Q12H, tab, l Tablet 11:41: 0 Marty [Eliquis] 00 Refill(s), For Atrial Fibrilatio n apixaban 5 2020-0 Yes 5 mg, PO, Me moria MG Oral 4- Q12H, tab, l Tablet 11:41: 0 Whitakers [Eliquis] 00 Refill(s), For Atrial Fibrilatio n apixaban 5 2020-0 Yes 5 mg, PO, Me moria MG Oral - Q12H, tab, l Tablet 11:41: 0 Whitakers [Eliquis] 00 Refill(s), For Atrial Fibrilatio n AMIODarone 0 Yes 200 mg = 1 M emoria 200 mg oral 4-09 tab, PO, l tablet 11:38: Daily, # Marty 00 90 tab, 3 Refill(s) AMIODarone 2020-0 Yes 200 mg = 1 M emoria 200 mg oral 4-09 tab, PO, l tablet 11:38: Daily, # Whitakers 00 90 tab, 3 Refill(s) AMIODarone 2020-0 Yes 200 mg = 1 M emoria 200 mg oral 4-09 tab, PO, l tablet 11:38: Daily, # Marty 00 90 tab, 3 Refill(s) AMIODarone 2020-0 Yes 200 mg = 1 M emoria 200 mg oral 4-09 tab, PO, l tablet 11:38: Daily, # Whitakers 00 90 tab, 3 Refill(s) AMIODarone 2020-0 Yes 200 mg = 1 M emoria 200 mg oral 4-09 tab, PO, l tablet 11:38: Daily, # Whitakers 00 90 tab, 3 Refill(s) AMIODarone 2020-0 Yes 200 mg = 1 M emoria 200 mg oral 4-09 tab, PO, l tablet 11:38: Daily, # Marty 00 90 tab, 3 Refill(s) AMIODarone Yes 200 mg = 1 M emoria 200 mg oral - tab, PO, l tablet 11:38: Daily, # Marty 90 tab, 3 Refill(s) normal No 1,000 [...] tablet sucralfate 2020- No Method i (CARAFATE) 08-29-17 st 1 gram 00:00: 00:00 [facility]osp[facility] tablet 00 :00 l Eliquis 5 2020- Yes [facility] mg tablet 08-16 st 00:00: [facility]ospita 00 l apixaban Yes 5mg Take 5 mg Univ ers (ELIQUIS) 5 3-17 by mouth 2 it y of mg tablet 08:18: ([facility]) [place] 30 times Medical daily. Branch amiodarone [...] tablet 41 times Medical daily. Branch metoprolol 2020-1 Yes 100mg Take 100 Un matt tartrate 0-12 mg by ity of (LOPRESSOR) 08:06: mouth 2 Yomi as 100 mg 41 (two) Medical tablet times Branch daily. amLODIPine 2020-1 Yes 10mg Take 10 mg U nivers (NORVASC) 0-12 by mouth ity of 10 mg 08:06: daily. [place] tablet 41 Medical Branch lisinopril 2020-1 Yes 40mg Take 40 mg U nivers (PRINIVIL,Z 0-12 by mouth 2 it y of ESTRIL) 40 08:06: (two) [place] mg tablet 41 times Medical daily. Branch metoprolol 2020- Yes 100mg Take 100 Un matt tartrate 0-12 mg by ity of (LOPRESSOR) 08:06: mouth 2 Yomi as 100 mg 41 (two) Medical tablet times Branch daily. amLODIPine 2020- Yes 10mg Take 10 mg U nivers (NORVASC) 0-12 by mouth ity of 10 mg 08:06: daily. [place] tablet 41 Medical Branch lisinopril 2020-1 Yes 40mg Take 40 mg U nivers (PRINIVIL,Z 0-12 by mouth 2 it y of ESTRIL) 40 08:06: (two) [place] mg tablet 41 times Medical daily. Branch metoprolol 2019- Yes 100mg Take 100 Un matt tartrate 0-12 mg by ity of (LOPRESSOR) 08:06: mouth 2 Yomi as 100 mg 41 (two) Medical tablet times Branch daily. amLODIPine 2020-1 Yes 10mg Take 10 mg U nivers (NORVASC) 0-12 by mouth ity of 10 mg 08:06: daily. [place] tablet 41 Medical Branch albuterol 2020-0 Yes Univers 90 [...] [facility] e Immunization Name Name Incoming Media COVID-19 2020-07-23 Completed [facility] MRNA VACCINATION 00:00:00 [facility] Incoming Media COVID-19 2020-07-02 Completed [facility]ae[facility] MRNA VACCINATION 00:00:00 Hospital Influenza Virus 2017-03-08 Completed Universit y of Vaccine 00:00:00 [facility] Influenza Virus 2017-03-08 Completed Universit y of Vaccine 00:00:00 [facility] Influenza Virus 2017-03-08 Completed Universit y of Vaccine 00:00:00 [facility] Influenza Virus 2017-03-08 Completed Universit y of Vaccine 00:00:00 [facility] Influenza Virus 2014-01-30 Completed Universit y of Vaccine (3+ yrs) 00:00:00 [facility] Branch Pneumococcal 13 2014-01-30 Completed Universit y of Conjugate, PCV13 00:00:00 [facility] dical (Prevnar 13) Branch Influenza Virus 2014-01-30 Completed Universit y of Vaccine (3+ yrs) 00:00:00 [facility] Pneumococcal 13 2014-01-30 Completed Universit y of Conjugate, PCV13 00:00:00 [facility] dical (Prevnar 13) Branch Influenza Virus 2014-01-30 Completed Universit y of Vaccine (3+ yrs) 00:00:00 [facility] Pneumococcal 13 2014-01-30 Completed Universit y of Conjugate, PCV13 00:00:00 [facility] dical (Prevnar 13) Branch Influenza Virus 2014-01-30 Completed Universit y of Vaccine (3+ yrs) 00:00:00 [facility] Pneumococcal 13 2014-01-30 Completed Universit y of Conjugate, PCV13 00:00:00 [facility] ([facility] Branch Pneumococcal 2012-02-16 Completed University o f Polysaccharide, 00:00:00 [facility] ical PPSV23 (PNEUMOVAX) Branch Influenza Virus 2012-02-16 Completed Universit y of Vaccine 00:00:00 [facility] PPD (TB) 2012-02-16 Completed University of 00:00:00 [facility] Pneumococcal 2012-02-16 Completed University o f Polysaccharide, 00:00:00 [facility] ical PPSV23 (PNEUMOVAX) Branch Influenza Virus 2012-02-16 Completed Universit y of Vaccine 00:00:00 [facility] PPD (TB) 2012-02-16 Completed University of 00:00:00 [facility] Pneumococcal 2012-02-16 Completed University o f Polysaccharide, 00:00:00 [facility] ical PPSV23 (PNEUMOVAX) Branch Influenza Virus 2012-02-16 Completed Universit y of Vaccine 00:00:00 [facility] PPD (TB) 2012-02-16 Completed University of 00:00:00 [facility] Pneumococcal 2012-02-16 Completed University o f Polysaccharide, 00:00:00 [facility] ica PPSV23 (PNEUMOVAX) Branch Influenza Virus 2012-02-16 Completed Universit y of Vaccine 00:00:00 [facility] PPD (TB) 2012-02-16 Completed University of 00:00:00 [facility] Hep B, Adol or Pedi 2011-09-01 Completed Unive rsity of Dosage 00:00:00 [facility] Hep B, Adol or Pedi 2011-09-01 Completed Unive rsity of Dosage 00:00:00 [facility] Hep B, Adol or Pedi 2011-09-01 Completed Unive rsity of Dosage 00:00:00 [facility] Hep B, Adol or Pedi 2011-09-01 Completed Unive rsity of Dosage 00:00:00 [facility] Hep B, Adol or Pedi 2011-03-17 Completed Unive rsity of Dosage 00:00:00 [facility] Hep B, Adol or Pedi 2011-03-17 Completed Unive rsity of Dosage 00:00:00 [facility] Hep B, Adol or Pedi 2011-03-17 Completed Unive rsity of Dosage 00:00:00 [facility] Hep B, Adol or Pedi 2011-03-17 Completed Unive rsity of Dosage 00:00:00 [facility] Influenza Virus 2011-02-10 Completed Universit y of Vaccine 00:00:00 [facility] Hep B, Adol or Pedi 2011-02-10 Completed Unive rsity of Dosage 00:00:00 [facility] Influenza Virus 2011-02-10 Completed Universit y of Vaccine 00:00:00 [facility] Hep B, Adol or Pedi 2011-02-10 Completed Unive rsity of Dosage 00:00:00 [facility] Influenza Virus 2011-02-10 Completed Universit y of Vaccine 00:00:00 [facility] Hep B, Adol or Pedi 2011-02-10 Completed Unive rsity of Dosage 00:00:00 [facility] Influenza Virus 2011-02-10 Completed Universit y of Vaccine 00:00:00 [facility] Hep B, Adol or Pedi 2011-02-10 Completed Unive rsity of Dosage 00:00:00 [facility] PPD (TB) 2010-11-18 Completed University of 00:00:00 [facility] TDAP (ADACEL) 2010-11-18 Completed University of VACCINE 00:00:00 [facility] PPD (TB) 2010-11-18 Completed University of 00:00:00 [facility] TDAP (ADACEL) 2010-11-18 Completed University of VACCINE 00:00:00 [facility] PPD (TB) 2010-11-18 Completed University of 00:00:00 [facility] TDAP (ADACEL) 2010-11-18 Completed University of VACCINE 00:00:00 [facility] PPD (TB) 2010-11-18 Completed University of 00:00:00 [facility] TDAP (ADACEL) 2010-11-18 Completed University of VACCINE 00:00:00 [facility] HEPATITIS A 2004-03-02 Completed University of 00:00:00 [facility] HEPATITIS A 2004-03-02 Completed University of 00:00:00 [facility] HEPATITIS A 2004-03-02 Completed University of 00:00:00 [facility] HEPATITIS A 2004-03-02 Completed University of 00:00:00 [facility] HEPATITIS A 2003-08-01 Completed University of 00:00:00 [facility] HEPATITIS A 2003-08-01 Completed University of 00:00:00 [facility] HEPATITIS A 2003-08-01 Completed University of 00:00:00 [facility] HEPATITIS A 2003-08-01 Completed University of 00:00:00 [facility] Pneumococcal 2001-10-04 Completed University o f Polysaccharide, 00:00:00 [facility] ical PPSV23 (PNEUMOVAX) Branch PPD (TB) 2001-10-04 Completed University of 00:00:00 [facility] Pneumococcal 2001-10-04 Completed University o f Polysaccharide, 00:00:00 [place] [facility] ical PPSV23 (PNEUMOVAX) Branch PPD (TB) 2001-10-04 Completed University of 00:00:00 [facility] Pneumococcal 2001-10-04 Completed University o f Polysaccharide, 00:00:00 [place] [facility] ical PPSV23 (PNEUMOVAX) Branch PPD (TB) 2001-10-04 Completed University of 00:00:00 [facility] Branch Pneumococcal 2001-10-04 Completed University o f Polysaccharide, 00:00:00 [place] [facility] ical PPSV23 (PNEUMOVAX) Branch PPD (TB) 2001-10-04 Completed University of 00:00:00 [facility] Vital Signs Vital Name Observation Time Observation Value Comments Source Systolic blood 2021-12-13 06:39:53 170 mm[Hg] Univer sity of pressure [facility] Diastolic blood 2021-12-13 06:39:53 96 mm[Hg] Unive rsity of pressure [facility] Heart rate 2021-12-13 06:39:53 60 /min Universi ty of [facility] Respiratory rate 2021-12-13 06:39:53 18 /min Univ ersity of [facility] Oxygen saturation in 2021-12-13 06:39:53 98 /min University Arterial blood by [facility] Pulse oximetry Branch Body temperature 2021-12-13 04:57:00 36.56 Amina Univ ersity of [facility] Body height 2021-12-13 04:57:00 162.6 cm Universi ty of [place] [facility] Body weight 2021-12-13 04:57:00 90.719 kg Universi ty of [place] [facility] BMI 2021-12-13 04:57:00 34.33 kg/m2 Universi ty of [facility] Systolic blood 2021-08-21 13:13:00 191 mm[Hg] Univer sity of pressure [facility] Diastolic blood 2021-08-21 13:13:00 99 mm[Hg] Unive rsity of pressure [facility] Heart rate 2021-08-21 13:13:00 52 /min Universi ty of [facility] Body temperature 2021-08-21 13:11:00 36.5 Amina Univ ersity of [facility] Respiratory rate 2021-08-21 13:11:00 16 /min Univ ersity of [facility] Body height 2021-08-21 13:11:00 162.6 cm Universi ty of [facility] Body weight 2021-08-21 13:11:00 93.759 kg Universi ty of [facility] BMI 2021-08-21 13:11:00 35.48 kg/m2 Universi ty of [facility] Oxygen saturation in 2021-08-21 13:11:00 95 /min University of Arterial blood by [facility] Pulse oximetry Branch Systolic blood 2021-07-14 15:18:00 142 mm[facility]Hg[facility] Diastolic blood 2021-07-14 15:18:00 76 mm[Hg] [facility] Heart rate 2021-07-14 15:18:00 61 [facility] Body height 2021-07-14 15:18:00 162.6 cm [facility] 2021-07-14 15:18:00 94.802 kg [facility] BMI 2021-07-14 15:18:00 35.87 kg/m2 [facility] Systolic blood 2020-12-08 15:48:00 125 mm[Hg] Method [facility] pressure Diastolic blood 2020-12-08 15:48:00 76 mm[Hg] [facility] pressure Heart rate 2020-12-08 15:48:00 64 /min [facility] Body temperature 2020-12-08 15:48:00 36.61 Amina [facility] Respiratory rate 2020-12-08 15:48:00 17 /min [facility] Body height 2020-12-08 15:48:00 162.6 cm [facility] Body weight 2020-12-08 15:48:00 98.884 kg [facility] BMI 2020-12-08 15:48:00 37.42 kg/m2 [facility] Oxygen saturation in 2020-12-08 15:48:00 97 /min [facility] Arterial blood by Pulse oximetry Respitory Rate 2020-08-30 13:00:00 Memori al Marty Systolic (mm Hg) 2020-08-30 13:00:00 Caesar rial Whitakers Diastolic (mm Hg) 2020-08-30 13:00:00 Mem orial Marty Systolic (mm Hg) 2020-08-30 11:00:00 Caesar rial Whitakers Diastolic (mm Hg) 2020-08-30 11:00:00 Mem orial [place]akers Temperature Oral (F) 2020-08-30 11:00:00 98.4 F [facility] Marty Respitory Rate 2020-08-30 11:00:00 Memori al Marty Respitory Rate 2020-08-30 10:00:00 Darien andre Marty Systolic (mm Hg) 2020-08-30 10:00:00 Caesarlela gonzalezmabel Marty Diastolic (mm Hg) 2020-08-30 10:00:00 Mem raymondal Whitakers Temperature Oral (F) 2020-08-30 00:00:00 96.9 F [facility] Temperature Oral (F) 2020-08-29 11:26:00 97.6 F [facility] Height 2020-08-29 10:30:00 162.56 cm [facility] Weight 2020-08-29 10:30:00 Claude Whitakers BMI Calculated 2020-08-29 10:30:00 Darien andre [facility] Procedures Procedure Date / Time Performing Clinician Source Performed MEDICATION CORRESPONDENCE 2021-12-25 05:01:00 Doctor Unassigned, [facility] Jermyn [facility] Branch CT CERVICAL SPINE WO 2021-12-13 05:48:16 Bill Guo [facility] CONTRAST [facility] CT HEAD WO CONTRAST 2021-12-13 05:48:16 Bill Guo [facility] CT LUMBAR SPINE WO 2021-12-13 05:48:16 Bill Guo [facility] CONTRAST [facility] Branch CT THORACIC SPINE WO 2021-12-13 05:48:16 Bill Guo [facility] Branch ECG 12-LEAD 2021-07-14 15:14:00 Elan Lira [facility] [id number] 2021-06-17 00:00:00 GRACEA [facility] GASTROINTESTINAL PANEL 2020-12-08 22:21:[address] [facility] XR ABDOMEN 1 VW 2020-12-08 18:06:32 Eliseo Arce spital OR [place] < 1 HOUR 2020-09-05 22:39:00 Eliseo Arce spital SURGICAL PATHOLOGY REQUEST 2020-09-05 21:54:00 Eliseo Arce [facility] XR CHEST 1 VW PORTABLE 2020-09-05 19:55:[address] [facility] Hospital DISCHARGE PATIENT 2020-09-05 17:27:55 Lucas [facility] CO AN ELECTIVE 2020-09-05 16:47:23 Kirit Flood V. [facility] ENDOTRACHEAL AIRWAY EGD, INTRAOPERATIVE 2020-09-05 16:27:00 [facility] THROMB[facility]IN 2020-09-05 15:04:00 Sarai Maharaj [facility] TIME (PTT) M. PROTHROMBIN TIME WITH INR 2020-09-05 15:04:00 Mindy Maharaj [facility] M. Plan of Care Planned Activity Planned Date Details Comments Source Future Scheduled 2021-08-26 Screening for [facility] Test 13:02:23 malignant neoplasm of cervix (procedure) [code = 116984900] Future Scheduled 2021-08-26 BREAST CANCER [facility] Test 13:02:23 SCREENING [code = BREAST CANCER SCREENING] Future Scheduled 2021-08-26 COLONOSCOPY SCREENING [facility] Test 13:02:23 [code = COLONOSCOPY SCREENING] Future Scheduled 2021-08-26 Screening for [facility] Test 13:02:23 malignant neoplasm of lung (procedure) [code = 331955143] Future Scheduled 2021-08-26 SHINGLES VACCINES (#1) [facility] Test 13:02:23 [code = SHINGLES VACCINES (#1)] Future Scheduled 2021-08-26 COVID-19 VACCINE (3 - [facility] Test 13:02:23 Pfizer risk 4-dose series) [code = COVID-19 VACCINE (3 - Pfizer risk 4-dose series)] Future Scheduled 2021-08-26 65+ PNEUMOCOCCAL [facility] Test 13:02:23 VACCINE (4 of 4 - PPSV23) [code = 65+ PNEUMOCOCCAL VACCINE (4 of 4 - PPSV23)] Future Scheduled 2021-08-26 INFLUENZA VACCINE [facility] Test 13:02:23 [code = INFLUENZA VACCINE] Encounters Start End Encounter Admission Attending Care Care Encounter Source Date/Time Date/Time Type Type Clinicians Facility Department ID 2021-11-16 Outpatient [facility] [id number] [place] 10:32:47 [id number] Health 2021-08-03 Inpatient WINTER Lund [id number] [facility] 11:30:00 Mike [id number] [facility] 2021-07-14 Outpatient PANKAJ [facility] [id number] [place] 09:33:51 [facility] 2021-06-16 Inpatient WINTER Leal [id number] [facility] 08:30:00 Mike [id number] [facility] 2021-06-15 Inpatient WINTER Leal [id number] [facility] 10:30:00 Mike [id number] [facility] 2022-02-26 2022-02-26 Outpatient R [facility] [id number] Univers 08:30:00 08:30:00 [facility] [id number] 2022-02-26 Outpatient [facility] [id number] Univers 08:30:00 08:30:00 SANTIAGO [facility] 2021-12-25 2021-12-25 Orders Doctor FERMIN [id number] Univers 00:00:00 00:00:00 Only Unassigned, JACKELINE [id number] ity of Jermyn [facility] [id number] Yomi as [id number] [facility] 009 Branch 2021-12-12 2021-12-13 Emergency X Bill GUO [facility] ERT [id number] Univers 23:53:00 01:52:00 ity of [facility] 2021-12-12 2021-12-13 Emergency Bill Guo [facility] [id number] Univers 23:53:00 01:52:00 Kiersten BULLOCK [id number] i ty [facility] [id number] [id number] [facility] 084 Branch 2021-11-20 2021-11-20 Behavioral Instructor [facility] UNIVERSIT [id number] Univers 09:45:00 10:00:00 Visit RonaldSantiago [facility] [id number] ity of [facility] [id number] [id number] [facility] 316 Branch 2021-11-20 2021-11-20 Outpatient Marika [facility] [id number] Univers 09:45:00 09:45:00 SANTIAGO itcharlie [facility] 2021-11-20 2021-11-20 Outpatient [facility] [id number] Univers 09:45:00 09:45:00 [id number] [facility] 2021-08-21 2021-08-21 Office [place], UNIVERSIT [id number] [facility] 08:30:00 09:00:00 Visit Santiago [facility] [id number] [facility] [id number] [facility] s [id number] [facility] 089 Branch 2021-08-05 2021-08-05 Outpatient RAUL Lund, HCACL HCACL [id number] [facility] 05:24:00 05:24:00 Mike 31 [facility] 2021-08-05 2021-08-05 Outpatient RAUL Stonelan, HCACL OUTD [id number] [facility] 05:24:00 05:24:00 Mike [id number] [facility] 2021-07-14 2021-07-14 Office Pankaj, UTP 6400 [id number] [place] 08:45:00 09:34:[address] [id number] Health [id number] [id number] 1 2021-07-09 2021-07-09 Telephone Ap, UTP 6400 [id number] [place] 00:00:00 00:00:[address] [id number] Health [id number] [id number] 1 2021-06-17 2021-06-17 Inpatient EL Raslan, HCACL INTE.02 [id number] [facility] 10:56:00 14:36:00 Mike [id number] [facility] 2021-06-17 2021-06-17 Inpatient EL Raslan, HCACL INTE.02 [id number] [facility] 10:56:00 14:36:00 Mike 47 [facility] 2021-04-28 2021-04-28 Telephone [facility], 1.2.840.3 [id number] Methodi 00:00:00 00:00:[id number] 3.430.2.7 Hospit a .[id number] l .8 2021-03-31 2021-03-31 Orders [facility], 1.2.840.1 [id number] Methodi 00:00:00 00:00:00 Only Sarai Corbin. [id number] s t 3.430.2.7 Hospit a .[id number] l .8 2021-03-24 2021-03-24 Telephone [facility], 1.2.840.8 [id number] Methodi 00:00:00 00:00:[id number] 3.430.2.7 Hospit a .[id number] l .8 2021-01-19 2021-01-19 Telephone [place], 1.2.840.1 [id number] Methodi 00:00:00 00:00:[id number] 3.430.2.7 Hospit a .3.664014 l .8 2020-12-12 2020-12-12 Office [facility], [facility] 6400 1.2.840.114 [id number] 07:42:02 08:18:[address] [id number] [id number] [id number] 1 2020-12-09 2020-12-09 Telephone [facility], 1.2.840.1 [id number] Methodi 00:00:00 00:00:00 Sarai Corbin. [id number] s t 3.430.2.7 Hospit a .3.373812 l .8 2020-12-08 2020-12-08 Hospital [facility], 1.2.840.1 [id number] 2100 [id number] Methodi 12:35:54 23:59:00 Encounter Ray 11602.1.[address] 3.430.2.7 Hospit a .3.293577 l .8 2020-12-08 2020-12-08 Lab Jailyn, 1.2.840.1 [id number] 67141 67970 Methodi 17:25:00 17:30:[address] 3.430.2.7 Hospit a .3.470387 l .8 2020-12-08 2020-12-08 Office Jailyn, 1.2.840.1 [id number] 00035 08991 Methodi 10:30:00 11:39:56 Visit Ray 85123.1.[address] 3.430.2.7 Hospit a .3.082020 l .8 2020-12-08 2020-12-08 Travel 1.2.840.1 1.2.294.408 5036 238528 Methodi 00:00:00 00:00:[address] 3.430.2.7 0.2.7.3.698 Ho spita .3.559629 084.8 l .8 2020-12-02 2020-12-02 Behavioral Instructor [facility] 1.2.840.114 8 [id number] 10:20:06 10:36:19 Visit HEALTH 350.1.13.10 [facility] 4.2.7.2.686 [id number] 316 2020-11-25 2020-11-25 Office MEGHA Beltran 1.2.840.114 [id number] 65 11:06:30 11:58:14 Visit Robbi Hairston [employer] 350.1.13.10 [facility] 4.2.7.2.686 MATERNAL [id number] & CHILD [address] [place] [address] 2020-11-25 2020-11-25 [facility] 1.2.732.686 4457 4592 00:00:00 00:00:00 [facility] 350.1.13.10 CLINICS 4.2.7.2.686 [id number] 089 2020-11-25 2020-11-25 Telephone Devin [facility] 1.2.165.353 9781 0821 00:00:00 00:00:00 Robbi Marika [employer] 350.1.13.10 [facility] 4.2.7.2.686 MATERNAL [id number] & [address] 2020-11-14 2020-11-14 Abstract Clark, 1.2.840.1 [id number] 54974 09108 Methodi 00:00:00 00:00:[address] 3.430.2.7 Hospit a .3.135363 l .8 2020-11-14 2020-11-14 Telephone Rodas, 1.2.840.1 [id number] 2100 735374 Methodi 00:00:00 00:00:[address] 3.430.2.7 Hospit a .3.211701 l .8 2020-11-07 2020-11-07 Telephone KIMBERLEY Ortiz 6400 1.2.840.114 124 172751 00:00:00 00:00:[address] 350.1.13.58 9.2.7.2.686 [id number] 1 2020-10-27 2020-10-27 Telephone Jailyn, 1.2.840.1 [id number] Methodi 00:00:00 00:00:[address] 3.430.2.7 Hospit a .3.780848 l .8 2020-10-24 2020-10-24 Telephone Clark, 1.2.840.1 [id number] 2099 746161 Methodi 00:00:00 00:00:[address] 3.430.2.7 Hospit a .3.491520 l .8 2020-10-06 2020-10-12 Telemedici Jailyn, 1.2.840.1 [id number] Methodi 15:30:00 00:08:46 ne Ray 06293.1.[address] 3.430.2.7 Hospit a .3.711512 l .8 2020-09-30 2020-09-30 [facility], 1.2.840.1 [id number] 21 [id number] Methodi 00:00:00 00:00:[address] 3.430.2.7 Hospit a .3.166922 l .8 2020-09-21 2020-09-21 [facility] 1.2.840.1 1.2.628.083 7772 797132 Methodi 00:00:00 00:00:[address] 3.430.2.7 0.2.7.3.698 Ho spita .3.097158 084.8 l .8 2020-09-06 2020-09-06 [facility] 1.2.840.1 [id number] 89410 12167 Methodi 17:42:30 23:59:[address] 3.430.2.7 Hospit a .3.836523 l .8 2020-09-06 2020-09-06 [facility], 1.2.840.1 [id number] 2099 270490 Methodi 16:50:00 17:41:00 Encounter Ray 36867.1.[address] 3.430.2.7 Hospit a .3.715787 l .8 2020-09-05 2020-09-05 [facility], 1.2.840.1 [id number] 2100 273017 Methodi 09:17:00 19:45:00 Encounter Ray [address]22.1.[address] 3.430.2.7 Hospit a .3.300109 l .8 2020-09-05 2020-09-05 Surgery [facility], 1.2.840.1 [id number] 01129 96942 Methodi 11:30:00 13:15:[address] 3.430.2.7 Hospit a .3.032683 l .8 2020-09-05 2020-09-05 Anesthesia [facility], 1.2.840.1 [id number] 021 6044100 Methodi 11:27:00 12:20:00 Event Kirit 47043.1.1 243 s t V. 3.430.2.7 Hospit a .3.193087 l .8 2020-09-05 2020-09-05 Travel 1.2.840.1 1.2.631.838 6371 656669 Methodi 00:00:00 00:00:[address] 3.430.2.7 0.2.7.3.698 Ho spita .3.252915 084.8 l .8 2020-09-04 2020-09-04 Telephone Meisenbach, 1.2.840.1 [id number] Methodi 00:00:00 00:00:00 Sarai Lieberman 87491.1.1 762 s t 3.430.2.7 Hospit a .3.109795 l .8 2020-09-02 2020-09-02 Telephone Meisenbach, 1.2.840.7 [id number] Methodi 00:00:00 00:00:00 Sarai Lieberman 97911.1.1 344 s t 3.430.2.7 Hospit a .3.650736 l .8 2020-08-29 2020-08-30 [facility] [id number] 275 [facility] 10:20:00 14:10:00 Outpatient [facility] 00 l [facility] 2020-08-29 2020-08-30 Outpatient HEMATPOUR, [facility] CAR 7500 [facility] 05:20:00 09:10:00 [place] Results Test Description Test Time Test Comments Results Result Comments Source Novel Coronavirus 2019 Inhouse 2021-08-03 18:08:00 Test Item Value Reference Range Interpretation Comme nts Novel Coronavirus 2019 Negative Negative Posit bruno results are indicative of the Inhouse (test code = presenc e skNNMO-YbA-6 RNA, clinical COVNONPUI) correlation wit h patient [...] qualitative detection of nucleic acid s from fmyEITR-LnD-4 virus and diagn osis of SARS-CoV-2 virusinfection. It is an Emergency Use Authorization ( EUA) testauthorized by the U.S. FDA. BASIC METABOLIC [id number] 09:37:00 Test Item Value Reference Range Interpretation [...] = 9.0 mg/dL 8.0-10.5 N CA) PROTHROMBIN [id number] 09:32:00 Test Item Value Reference Range Interpretation [...] (to prevent recurrent infar ct). 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 : 1955 Sex: F FAX: Carmenza Kelly DO [phone] [place]: St: ADM FAX: Mike Scales MD [phone] FAX: Bahman Chopra [phone] Name: LIO WATTS [facility] : 1955 Age/S: 66/F [address] [place] [address] Unit #: [id number] Loc: [place] [address] Phys: Bahman Chopra B[employer]KER Acct: [id number] Dis Date: Status: ADM IN PHONE #: [phone] Exam Date: 06/17/2021 1320 FAX #: [phone] Reason: WATCHMAN EXAMS: CPT CODE: [id number] XR CHEST 1 V 16592 PROCEDURE INFORMATION: Exam: XR Chest Exam date [...] Chopra Technologist: RT Taylor(R) Trnscrd Date/Time/By: 06/17/2021 (082) : By: Susanna Orig Print D/T: S: 06/17/2021 (559) PAGE 1 Signed ReportCOVID 19 Asymptomatic IH [...] high or waivedcomplexit y tests. BASIC METABOLIC [id number] 11:37:00 Test Item Value Reference Range Interpretation [...] code = 9.0 mg/dL 8.0-10.5 N CA) [id number] 11:37:00 Test Item Value Reference Range Interpretation Comments PREALBUMIN (test code = PREALB) 24.3 mg/dL 16.0-40.0 N PROTHROMBIN [id number] 11:03:00 Test Item Value Reference Range Interpretation [...] (to prevent recurrent infar ct). CBC W/AUTO [id number] 10:59:00 Test Item Value Reference Range Interpretation [...] 0.0-0.1 N NRBC#) - XR CHEST 2 [id number] 00:00:00 [facility] ELEN RICHLANDName: LIO WATTS : 1955 Sex: F FAX: Carmenza Kelly DO [phone] [place]: St: PRE FAX: Y Mike Lund MD [phone] Name: LIO WATTS [facility] : 1955 Age/S: 66/F [address] [place] [address] Unit #: [id number] Loc: [place] [address] Phys: Mike Lund MD Acct: [id number] Dis Date: Status: PRE [facility] PHONE #: [phone] Exam Date : 06/16/2021 1120 FAX #: [phone] Reason: PREOP EXAMS: CPT CODE: [id number] XR CHEST 2 V 43367 PROCEDURE INFORMATION: Exam: XR Chest Exam date [...] Reported andsigned by: Selene Collins D.O. CC: UrmilaFrancisco Kristen Rahman DO; Mike Lund MD Technologist: RT Andree(R) Trnscrd Date/Time/By: 06/16/2021 (6777) : By: [email or web address] Orig Print D/T: S: 06/16/2021 (5292) PAGE 1 Signed ReportGastrointestinal kqyxa1247-56-09 04:35:05 Test Item Value Reference Interpretation Comments [...] Rotavirus PCR (test Not Detected code = 7131566) Salmonella PCR (test Not Detected code = [...] PCR Not Detected (test code = 7124) [facility] mehjrlg3797-27-88 19:30:47 Test Item Value Reference Range Interpretation Comments Case number (test [id number] code = 5442375) Surgical pathology See link below for PDF report (test code = Lab Report 2255) Result status (test This is Supplemental code = 0688271) Report for [id number] [facility]2021-04-09 16:31:00 Test Item Value Reference Range Interpretation Comments POC Activated Clotting Time (test code 153 s = POC Activated Clotting Time) [facility]odIJBMJRAXZK0335-52-21 16:31:00 Test Item Value Reference Range Interpretation Comments POC Activated Clotting Time (test code 153 s = POC Activated Clotting Time) [facility] CenterRpezridCEFVOWHCWG6355-82-26 16:31:00 Test Item Value Reference Range Interpretation Comments POC Activated Clotting Time (test code 153 s = POC Activated Clotting Time) [facility] CenterLilcvzbSLFTUDIBTG5693-60-46 16:31:00 Test Item Value Reference Range Interpretation Comments POC Activated Clotting Time (test code 153 s = POC Activated Clotting Time) [facility] CenterUvjtnnkELCHOQMMHA7211-70-83 16:31:00 Test Item Value Reference Range Interpretation Comments POC Activated Clotting Time (test code 153 s = POC Activated Clotting Time) [facility] CenterXlswolbIDKENFLMGT1223-68-35 16:31:00 Test Item Value Reference Range Interpretation Comments POC Activated Clotting Time (test code 153 s = POC Activated Clotting Time) [facility] CenterGccqfpvYHDMDHNYBV6279-04-79 16:31:00 Test Item Value Reference Range Interpretation Comments POC Activated Clotting Time (test code 153 s = POC Activated Clotting Time) [facility] CenterIqulpczAVRZTCBWOQ1397-00-67 14:37:00 Test Item Value Reference Range Interpretation Comments POC Activated Clotting Time (test code 454 s = POC Activated Clotting Time) [facility] CenterGluiwfuPPMXSYDOMJ8599-39-69 14:37:00 Test Item Value Reference Range Interpretation Comments POC Activated Clotting Time (test code 454 s = POC Activated Clotting Time) [facility] CenterDxkpenrREUNPPIDRB5678-97-56 14:37:00 Test Item Value Reference Range Interpretation Comments POC Activated Clotting Time (test code 454 s = POC Activated Clotting Time) [facility] CenterNxxvdkvZLQXRYTZBK1552-91-28 14:37:00 Test Item Value Reference Range Interpretation Comments POC Activated Clotting Time (test code 454 s = POC Activated Clotting Time) [facility] CenterOlzhviiHBIPXKRONH3274-87-41 14:37:00 Test Item Value Reference Range Interpretation Comments POC Activated Clotting Time (test code 454 s = POC Activated Clotting Time) [facility] CenterHunuikyDVWPEZMGYF2407-84-80 14:37:00 Test Item Value Reference Range Interpretation Comments POC Activated Clotting Time (test code 454 s = POC Activated Clotting Time) [facility] CenterLzgpjbhMBMRCBYOSD8255-81-71 14:37:00 Test Item Value Reference Range Interpretation Comments POC Activated Clotting Time (test code 454 s = POC Activated Clotting Time) [facility] CenterRebsgtaRHSLANYTTU2680-70-40 14:13:00 Test Item Value Reference Range Interpretation Comments POC Activated Clotting Time (test code 354 s = POC Activated Clotting Time) [facility] CenterDqpxrfmLFZUVOIPWE8245-66-24 14:13:00 Test Item Value Reference Range Interpretation Comments POC Activated Clotting Time (test code 354 s = POC Activated Clotting Time) [facility] CenterXdpmqyxLYLZLGBNZI9855-63-98 14:13:00 Test Item Value Reference Range Interpretation Comments POC Activated Clotting Time (test code 354 s = POC Activated Clotting Time) [facility] CenterHrtdawvHHHOUFNDXJ6466-02-36 14:13:00 Test Item Value Reference Range Interpretation Comments POC Activated Clotting Time (test code 354 s = POC Activated Clotting Time) [facility] CenterLxnijaaIBURQOJBQP2955-48-67 14:13:00 Test Item Value Reference Range Interpretation Comments POC Activated Clotting Time (test code 354 s = POC Activated Clotting Time) [facility] CenterTfvpnthYPXQVDEHFD9443-14-34 14:13:00 Test Item Value Reference Range Interpretation Comments POC Activated Clotting Time (test code 354 s = POC Activated Clotting Time) [facility] CenterPvzpzezXCCXTXOGIL9929-52-51 14:13:00 Test Item Value Reference Range Interpretation Comments POC Activated Clotting Time (test code 354 s = POC Activated Clotting Time) [facility] BANK VKFCXAV8330-99-90 10:37:00Negative (08/29/20 5:37 AM) [facility] RMFQH3248-19-50 10:37:59115Efxuvipf HermannCHEM PANEL 2020-08-29 10:37:0028[facility]CHE[facility] TGQRV7093-72-56 10:37:001.01[facility] HermannCHEM SRTXA3868-85-30 10:37:20589Wzlfactk HermannCHEM GDTYF9400-77-81 10:37:003.8[facility] HermannCHEM EBRHF5881-83-34 10:37:76527Jnqvqetg HermannCHEM RDGJI5704-26-39 10:37:0028[facility] HermannCHEM LUGOX7187-05-80 10:37:009.8 [facility] HermannCHEM PNEBP0590-45-09 10:37:0011.8[facility] HermannCHEM PANEL 2020-08-29 10:37:0059[facility] HermannCHEM BZKFX7604-44-11 10:37:002.9[facility] MohpgmdIPYPUEDMZU0268-89-31 10:37:006.8[facility] ZoaiuhzFPLFXSXEBM4271-73-29 10:37:004.47[facility] BglogyjOSZKORMUEU3161-36-58 10:37:0010.6[facility] XIUOWAIKMY6926-81-77 10:37:0034.0[facility] UsspkfyRUEDGCXPZD5320-22-16 10:37:00 76.1[facility] AmsrwatUEUEHRXOFQ5722-96-24 10:37:00 Test Item Value Reference Range Interpretation Comments MCH (test code = MCH) 23.8 pg 27.0-31.0 [facility] BiltwoxVMTZINTRQF5257-56-75 10:37:0031.3[facility] HermannHEMATOLOGY 2020-08-29 10:37:0018.2[facility] OqsvgbwCFSBSPFXJE1465-72-51 10:37:53387Srabbjal SjcodqyGPJWZXAFLR3518-88-41 10:37:007.5[facility] VmobqmnBIVEZVLDTX5963-36-20 10:37:00 Test Item Value Reference Range Interpretation Comments PT (test code = PT) 12.8 s 12.0-14.7 [facility] PjnpmyiDRVWCFACGJ0375-18-52 10:37:00 Test Item Value Reference Range Interpretation Comments INR (test code = INR) 0.97 1 0.85-1.17 [facility] JsqfijsCMVYRZSWYA5406-39-07 10:37:00 Test Item Value Reference Range Interpretation Comments PTT (test code = PTT) 25.0 s 22.9-35.8 [facility] IqtywcyPPQSABRVXH5163-23-14 10:37:0070.5[facility] HermannHEMATOLOGY 2020-08-29 10:37:0018.8[facility] HuyjoadEWXFOLHFRV1470-45-42 10:37:009.5[facility] DjgyfgbJSCMVCIIDO0736-78-94 10:37:000.9[facility] LtvqkgkWGBQTDRFEC6427-91-20 10:37:000.3[facility] FjfczioGKDHNCJXRA9237-46-84 10:37:004.8[facility] RJHDIPBDIM8297-72-30 10:37:001.3[facility] YnasqgzEHOXEDZBQW2816-77-53 10:37:000.6 [facility] NlicgisLKPBVKBYPI9746-74-15 10:37:000.1[facility] HermannHEMATOLOGY 2020-08-29 10:37:001+ *ABN*(08/29/20 5:37 AM)[facility] NpgcxrdVBHXMFAQYE2788-87-17 10:37:00Not Detected (08/29/20 5:37 AM)[facility] HermannBLOOD BANK RESULTS 2020-08-29 10:37:00Negative (08/29/20 5:37 AM)[facility] HermannCHEM YIUOM8726-29-56 10:37:33166Nxdnnvug HermannCHEM USRTU1544-72-28 10:37:0028[facility] HermannCHEM BVRJZ5997-46-42 10:37:001.01[facility] HermannCHEM WUIZZ1213-86-88 10:37:33876 [facility] HermannCHEM JLEDU2416-43-33 10:37:003.8[facility] HermannCHEM PANEL 2020-08-29 10:37:53947Kjosmbaj HermannCHEM VLETN6569-06-76 10:37:0028[facility] HermannCHEM MILHK3225-16-78 10:37:009.8[facility] HermannCHEM RUUYA5847-11-79 10:37:0011.8[facility] HermannCHEM ZBUHJ4306-21-64 10:37:0059[facility] HermannCHEM IEPIX8134-72-79 10:37:002.9[facility] VoynknvGHZTGCOXXJ5584-11-46 10:37:006.8 Memorial DtjcpanHIEBZSWQNG4171-19-27 10:37:004.47[facility] HermannHEMATOLOGY 2020-08-29 10:37:0010.6[facility] UnwqocoUVJRHBHAUP9784-72-15 10:37:0034.0[facility] RktuqumHEGXWGCREL2839-78-41 10:37:0076.1[facility] PztpefeBCHEUKIISV6126-01-61 10:37:00 Test Item Value Reference Range Interpretation Comments MCH (test code = MCH) 23.8 pg 27.0-31.0 [facility] BojnnnxZPUNLMULOL1377-97-21 10:37:0031.3[facility] HermannHEMATOLOGY 2020-08-29 10:37:0018.2[facility] LicfoumIPDALUSJBM4898-95-96 10:37:93963Bgywkfmp GdohuwcMHBVUAYJME1677-78-15 10:37:007.5[facility] YmsktiwBPFPLVMZEA8963-12-96 10:37:00 Test Item Value Reference Range Interpretation Comments PT (test code = PT) 12.8 s 12.0-14.7 Memorial BnlgzjwJZEVOJZGCS9281-54-39 10:37:00 Test Item Value Reference Range Interpretation Comments INR (test code = INR) 0.97 1 0.85-1.17 Memorial ZiobpbcTFFYMZRPHF6446-28-73 10:37:00 Test Item Value Reference Range Interpretation Comments PTT (test code = PTT) 25.0 s 22.9-35.8 [facility] IygrngaVRRZJOYMNL6452-63-90 10:37:0070.5[facility] HermannHEMATOLOGY 2020-08-29 10:37:0018.8[facility] ZijgpnuKDECTIMFUL6599-86-71 10:37:009.5[facility] RzudztkOINHCRGYFS6007-41-06 10:37:000.9[facility] AtlduxrRBKNMPGWLI6842-76-34 10:37:000.3[facility] KkrzbdlQMXYIUTJDJ1714-80-26 10:37:004.8[facility] ZZUTPJVLHY3712-13-17 10:37:001.3[facility] VngildoUHCYUUVJSC1337-86-86 10:37:000.6 Memorial GgrybofYCQNBNPFKL0765-05-21 10:37:000.1[facility] HermannHEMATOLOGY 2020-08-29 10:37:001+ *ABN*(08/29/20 5:37 AM)[facility] UqurngyMSBPHLPDYW7456-83-51 10:37:00Not Detected (08/29/20 5:37 AM)[facility] HermannBLOOD BANK RESULTS 2020-08-29 10:37:00Negative (08/29/20 5:37 AM)[facility] HermannCHEM BFAGC5805-93-16 10:37:87685Mlypyuew HermannCHEM CCYYB9057-80-20 10:37:0028[facility] HermannCHEM PVBWQ9178-76-00 10:37:001.01[facility] HermannCHEM JISIV5165-32-94 10:37:33919 [facility] HermannCHEM SEAHD7051-32-83 10:37:003.8[facility] HermannCHEM PANEL 2020-08-29 10:37:21775Pqtbpsch HermannCHEM YEFFG5301-81-02 10:37:0028[facility] HermannCHEM CGSVP4106-49-45 10:37:009.8[facility] HermannCHEM TMWIQ3785-48-62 10:37:0011.8[facility] HermannCHEM CJFBQ5406-91-66 10:37:0059[facility] HermannCHEM ROBZR5366-86-40 10:37:002.9[facility] LthlwecCKOXHDSFAW3605-23-61 10:37:006.8 Memorial IdpqalmPHDYBSGZSE5070-63-12 10:37:004.47[facility] HermannHEMATOLOGY 2020-08-29 10:37:0010.6[facility] PlcjjasGAQLANBFIH5256-25-40 10:37:0034.0[facility] RelgyktVSVCNYCMRB3247-52-07 10:37:0076.1[facility] ZkbbdurBXJHYUXASA4133-55-42 10:37:00 Test Item Value Reference Range Interpretation Comments MCH (test code = MCH) 23.8 pg 27.0-31.0 Memorial EfpunvuTHSPDMUSDV4034-00-67 10:37:0031.3[facility] HermannHEMATOLOGY 2020-08-29 10:37:0018.2[facility] XvnilcpTOOKLHUNHQ0178-70-68 10:37:56274Gxsxfdqa ZmkomiaFVMNUBKVUV6417-51-38 10:37:007.5[facility] SxjfjtdVNGTUFZFCC8585-60-35 10:37:00 Test Item Value Reference Range Interpretation Comments PT (test code = PT) 12.8 s 12.0-14.7 Memorial HtkgktgPQHNYOELED8235-64-05 10:37:00 Test Item Value Reference Range Interpretation Comments INR (test code = INR) 0.97 1 0.85-1.17 [facility] NvunppxVNJWNZRIIW0997-56-82 10:37:00 Test Item Value Reference Range Interpretation Comments PTT (test code = PTT) 25.0 s 22.9-35.8 Memorial MwoobhuBKBJDCFCUF7753-87-54 10:37:0070.5[facility] HermannHEMATOLOGY 2020-08-29 10:37:0018.8[facility] SegupbiNEVQHABKRP2380-53-56 10:37:009.5[facility] CfbvyecWKFMLAVRVR8099-69-20 10:37:000.9[facility] DuarytvSOQWMJPWNR1076-17-91 10:37:000.3[facility] SguwbyfVOGAYXQUAN7461-15-82 10:37:004.8[facility] FOMXCBZWAQ8069-51-01 10:37:001.3[facility] BhfacvnJJDNRJCRKH2382-06-67 10:37:000.6 [facility] OggucgbSCJJTUBSFY3046-16-46 10:37:000.1[facility] HermannHEMATOLOGY 2020-08-29 10:37:001+ *ABN*(08/29/20 5:37 AM)[facility] PszcotcFFVKZCZGTJ8966-36-98 10:37:00Not Detected (08/29/20 5:37 AM)[facility] HermannBLOOD BANK RESULTS 2020-08-29 10:37:00Negative (08/29/20 5:37 AM)[facility] HermannCHEM PLEEE9539-85-77 10:37:03809Teqtpukb HermannCHEM JLBDU3828-45-95 10:37:0028[facility] HermannCHEM TEHFF3507-08-89 10:37:001.01[facility] HermannCHEM OZCAZ0239-13-34 10:37:77752 [facility] HermannCHEM KIVPS7118-49-66 10:37:003.8[facility] HermannCHEM PANEL 2020-08-29 10:37:92176Jxrukdcf HermannCHEM IJEHD7174-04-22 10:37:0028[facility] HermannCHEM QAKVN8026-95-14 10:37:009.8[facility] HermannCHEM NWTQX4668-25-62 10:37:0011.8[facility] HermannCHEM YSMSN1582-41-33 10:37:0059[facility] HermannCHEM FBGMC5266-85-08 10:37:002.9[facility] FlrucyzDYLRZDZEMJ2214-42-66 10:37:006.8 [facility] ZykwoakTKPLZUQTWG1962-42-34 10:37:004.47[facility] HermannHEMATOLOGY 2020-08-29 10:37:0010.6[facility] ZnmcbymDDSKMTMWHY6011-71-73 10:37:0034.0[facility] JpezwpoKFJLLIIGWA6868-22-48 10:37:0076.1[facility] IrgwaiuHHMENCYJLI8780-26-99 10:37:00 Test Item Value Reference Range Interpretation Comments MCH (test code = MCH) 23.8 pg 27.0-31.0 [facility] PrtzvwoVIWDBZESCY7448-94-48 10:37:0031.3[facility] HermannHEMATOLOGY 2020-08-29 10:37:0018.2[facility] BlhpapmPWPXEVLDVR0466-30-99 10:37:28921Ngdlcljj PzlgeotJFWWMMSWSU4417-21-67 10:37:007.5[facility] LhjhsegFUKOVFFNBX8818-22-69 10:37:00 Test Item Value Reference Range Interpretation Comments PT (test code = PT) 12.8 s 12.0-14.7 [facility] SxtqfxpMBAEQRPPMP6171-07-73 10:37:00 Test Item Value Reference Range Interpretation Comments INR (test code = INR) 0.97 1 0.85-1.17 [facility] EnjxgxoBITAPQBRRS0319-32-98 10:37:00 Test Item Value Reference Range Interpretation Comments PTT (test code = PTT) 25.0 s 22.9-35.8 [facility] DbygfvwUMZOYUNARF9410-20-27 10:37:0070.5[facility] 2020-08-29 10:37:0018.8[facility] AubewrdGGTCSAGDKF4112-97-26 10:37:009.5[facility] KvjoinvHQJGVLNIME1505-57-52 10:37:000.9[facility] IiklrdpGQCJMKOLEY9299-65-68 10:37:000.3[facility] BfppgjhIJGELUZCOM8638-47-63 10:37:004.8[facility] YZXYAOGXHL5685-69-90 10:37:001.3[facility] YwmwvmhGAHJGYBOGP8530-53-29 10:37:000.6 [facility] DiblnitANSJZSAFYD7796-74-16 10:37:000.1[facility]annHEMATOLOGY 2020-08-29 10:37:001+ *ABN*(08/29/20 5:37 AM)[facility] SjabkwxODCRBHLSLO5371-96-35 10:37:00Not Detected (08/29/20 5:37 AM)[facility] 2020-08-29 10:37:00Negative (08/29/20 5:37 AM)[facility]annCHEM DKZYM1635-63-44 10:37:80434Uoazwnbu HermannCHEM NMUAK6403-54-09 10:37:0028[facility]annCHE[facility] KJRQO1759-95-07 10:37:001.01[facility]annCHEM PEWYR8627-75-69 10:37:73343 [facility] UXBDQ9670-04-41 10:37:003.8[facility]annCHEM PANEL 2020-08-29 10:37:68013Lkdyzhph HermannCHEM BNZSE7276-10-81 10:37:0028[facility]annCHE[facility] PDGCJ8233-38-98 10:37:009.8[facility]annCHE[facility] CLQKP1896-32-21 10:37:0011.8[facility]annCHE[facility] EDEJJ7220-85-47 10:37:0059[facility]annCHE[facility] RNKHI6727-89-06 10:37:002.9[facility] DspykohUATSZWRYIJ8116-57-72 10:37:006.8 [facility] OicwjaeHAWAPICGQA7046-93-79 10:37:004.47[facility]annHEMATOLOGY 2020-08-29 10:37:0010.6[facility] TvnldmfMCONSDWDBT0625-46-95 10:37:0034.0[facility] CljxvymKVOOKNOGWY8633-99-91 10:37:0076.1[facility] OaxlfplRURGWZVZQH6991-63-74 10:37:00 Test Item Value Reference Range Interpretation Comments MCH (test code = MCH) 23.8 pg 27.0-31.0 [facility] HvmhwczVMJBGEVEDP7000-53-16 10:37:0031.3[facility]annHEMATOLOGY 2020-08-29 10:37:0018.2[facility] GaozdzyTSMBHHMCCF3820-40-99 10:37:24059Svvedoer PxnubqzHWTBDFNMCN6693-70-67 10:37:007.5[facility] JuvwgfdPDEZUIVOME0014-22-85 10:37:00 Test Item Value Reference Range Interpretation Comments PT (test code = PT) 12.8 s 12.0-14.7 [facility] MsqshdrTDUDJRAUGC8459-59-79 10:37:00 Test Item Value Reference Range Interpretation Comments INR (test code = INR) 0.97 1 0.85-1.17 [facility] JsljovyPWDWBQNTZP4993-96-39 10:37:00 Test Item Value Reference Range Interpretation Comments PTT (test code = PTT) 25.0 s 22.9-35.8 [facility] HwkazusOHJCXFFRZC4961-05-93 10:37:0070.5[facility]annHEMATOLOGY 2020-08-29 10:37:0018.8[facility] StarwyaOMXVOZUBBF2677-40-53 10:37:009.5[facility] YtahmchSQOYFTOPQE8512-94-15 10:37:000.9[facility] PxbspljRQJHXTHQUD6347-01-82 10:37:000.3[facility] UoufsmnPQMWNJUOZA7649-26-35 10:37:004.8[facility] ZFTOVOQNJN2702-64-60 10:37:001.3[facility] BvuhrypQVWIEPTIWL3339-23-82 10:37:000.6 [facility] KpftvtnPHYGSLWPPQ8466-62-23 10:37:000.1[facility]annHEMATOLOGY 2020-08-29 10:37:001+ *ABN*(08/29/20 5:37 AM)[facility] PkwprvbCYDODAAHKH8648-75-93 10:37:00Not Detected (08/29/20 5:37 AM)[facility]BL[facility] RESULTS 2020-08-29 10:37:00Negative (08/29/20 5:37 AM)[facility]annCHEM DCFRK4809-50-67 10:37:64574Rfrokqlt HermannCHEM KTFWQ9861-09-34 10:37:0028[facility]annCHEM LBEDS7511-67-75 10:37:001.01[facility]annCHEM CQHEU3758-67-24 10:37:38471 [facility]annCHEM [id number] 10:37:003.8[facility]annCHEM PANEL 2020-08-29 10:37:11095Yrveyuuv HermannCHEM AHQBB9758-12-82 10:37:0028[facility]annCHEM SYGMX8375-43-54 10:37:009.8[facility]annCHEM XGDGK8640-72-75 10:37:0011.8[facility]annCHEM VDPXD9674-67-76 10:37:0059[facility]annCHEM WHZAV8649-37-36 10:37:002.9[facility] BmngivoGHJPNPHMMP2612-56-09 10:37:006.8 [facility] LtdnhvtPEZAPQPZGY7204-38-79 10:37:004.47[facility] HermannHEMATOLOGY 2020-08-29 10:37:0010.6[facility] UhqhhlpKUURORCGJQ0060-36-60 10:37:0034.0[facility] JwrxgpxWNODPAFHOM9061-48-79 10:37:0076.1[facility] JopmdyyZGJDLJASVD8181-34-33 10:37:00 Test Item Value Reference Range Interpretation Comments MCH (test code = MCH) 23.8 pg 27.0-31.0 [facility] EqoervfJRMYECXPSC3221-18-10 10:37:0031.3[facility] HermannHEMATOLOGY 2020-08-29 10:37:0018.2[facility] JdqhmdsIQAYEPHWZM0033-57-25 10:37:01205Boibctlc KrenfgsBDRIWERWAX2119-51-68 10:37:007.5[facility] BgpzcdrERDWXFYBJX1662-69-50 10:37:00 Test Item Value Reference Range Interpretation Comments PT (test code = PT) 12.8 s 12.0-14.7 [facility] WocyhnrZVELZKRQFW2497-59-18 10:37:00 Test Item Value Reference Range Interpretation Comments INR (test code = INR) 0.97 1 0.85-1.17 [facility] AvswbgsSGWKBXOFQZ6122-96-20 10:37:00 Test Item Value Reference Range Interpretation Comments PTT (test code = PTT) 25.0 s 22.9-35.8 [facility] OrhkfydAVFDBAAXPH3464-67-27 10:37:0070.5[facility] HermannHEMATOLOGY 2020-08-29 10:37:0018.8[facility] EzoqefmWPQGEJCNZV3220-02-96 10:37:009.5[facility] WwtjravBILKLMEMOW3972-13-76 10:37:000.9[facility] PsoynxjFBQMNYXMKI2034-11-74 10:37:000.3[facility] DabfgkvQOBQFQTKGR0648-80-89 10:37:004.8[facility] Marty XDPQQAKYJA7781-44-78 10:37:001.3[facility] LfsdrlcQNCASUQWYF3732-38-11 10:37:000.6 [facility] LqlgrvrLMWGDAGRSM8808-34-35 10:37:000.1[facility] HermannHEMATOLOGY 2020-08-29 10:37:001+ *ABN*(08/29/20 5:37 AM)[facility] PevgjvfORYOXHIHIJ4346-35-37 10:37:00Not Detected (08/29/20 5:37 AM)[facility] HermannBLOOD BANK RESULTS 2020-08-29 10:37:00Negative (08/29/20 5:37 AM)[facility]annCHEM DSDKO2955-24-21 10:37:84015Jlosdpmr HermannCHEM WMEKW2952-65-10 10:37:0028[facility]annCHEM FMGGN2792-93-03 10:37:001.01[facility] HermannCHEM ANXZE3787-50-61 10:37:62142 [facility]annCHEM MXIYK1436-04-70 10:37:003.8[facility] HermannCHEM PANEL 2020-08-29 10:37:57372Yylamszl HermannCHEM ENFJX9622-28-83 10:37:0028[facility] HermannCHEM ESUTD8346-05-33 10:37:009.8[facility] HermannCHEM XSDBL7805-03-06 10:37:0011.8[facility] HermannCHEM NXHWS9096-97-99 10:37:0059[facility]annCHEM YHBBI4826-87-50 10:37:002.9[facility] PophtfxEGZXHNJFXS9631-22-05 10:37:006.8 [facility] BewqqwfFHFBZKMXQQ7421-98-59 10:37:004.47[facility] HermannHEMATOLOGY 2020-08-29 10:37:0010.6[facility] KhzvtxdJFSCGJBAFJ4360-28-98 10:37:0034.0[facility] SbhcvleDSHHOHXUVB9162-88-20 10:37:0076.1[facility] UwhdfypRMYWPLLCFI7219-11-61 10:37:00 Test Item Value Reference Range Interpretation Comments MCH (test code = MCH) 23.8 pg 27.0-31.0 [facility] PgzaiwgHGJHKOVNFX1034-24-45 10:37:0031.3[facility] HermannHEMATOLOGY 2020-08-29 10:37:0018.2[facility] FbwqfwfDKNLWEDSVQ3984-72-56 10:37:94775Bcyhambn HfhtkznOJICGKREUH5801-77-49 10:37:007.5[facility] JawmnxvGNYUGMCKUM7947-54-47 10:37:00 Test Item Value Reference Range Interpretation Comments PT (test code = PT) 12.8 s 12.0-14.7 [facility] ZobjfdiBDZRNMKHDO7730-48-56 10:37:00 Test Item Value Reference Range Interpretation Comments INR (test code = INR) 0.97 1 0.85-1.17 [facility] FvywnzzHNRKJCIAAS1712-52-77 10:37:00 Test Item Value Reference Range Interpretation Comments PTT (test code = PTT) 25.0 s 22.9-35.8 [facility] GaoheuiWAERPARWII9701-21-61 10:37:0070.5[facility] HermannHEMATOLOGY 2020-08-29 10:37:0018.8[facility] MgqnodgNYRZBMUBQU6276-56-92 10:37:009.5[facility] YoisjtnKXXIURTIKM1928-36-01 10:37:000.9[facility] FjmmymtTPRJBNLIWF3803-86-98 10:37:000.3[facility] AavigujRKDMQTVGUU7941-28-36 10:37:004.8[facility] FALWZXXZOU8700-21-97 10:37:001.3[facility] XueqyfkHJKKORRBHT9227-18-67 10:37:000.6 [facility] NtzcpnxXLNGTQLZYF5123-29-10 10:37:000.1[facility] HermannHEMATOLOGY 2020-08-29 10:37:001+ *ABN*(08/29/20 5:37 AM)[facility]EFPSLRCNXJ7642-95-00 10:37:00Not Detected (08/29/20 5:37 AM)[facility], GC, TV,PCR, IN HESIW5919-84-90 15:38:00 Test Item Value Reference Range Interpretation Comments FT (test code = CHTR) Not detected (qualifier Not Detected N value) FT (test code = Not detected (qualifier Not Detected N NGONO) value) FT (test code = TRVG) Not detected (qualifier Not Detected N value) URINALYSIS WITH LSFEXTSUZZY4454-10-19 10:57:00 Test Item Value Reference Range Interpretation Comments Color (test code = UCOLR) Dk. Yellow Clarity (test code = UCLAR) Hazy Glucose (test code = UGLUC) NEGATIVE NEGATIVE N Bilirubin (test code = UBILI) NEGATIVE NEGATIVE N Ketones (test code = UKET) NEGATIVE NEGATIVE N Specific [place] (test code = 1.025 1.005-1.030 A USPGR) [...]
--- NOTE | 2022-01-04 19:48 | RAD REPORT ---
EXAM DESCRIPTION: RAD - Wrist Left 3 View - 01/04/2022 7:41 pm CLINICAL HISTORY: Left wrist pain status post injury FINDINGS: Old fractures distal radius and ulna. No acute fracture or dislocation seen. 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 Osteoporosis
[2022-01-04] MEDS ORDERED: HYDROCODONE/APAP 7.5/325 MG TAB ONE (20:21)
[2022-01-04 20:41] LABS: Absolute Lymphocytes (CBC) 1.1 K/uL (0.7-4.9); Hematocrit 35.3 % (36.0-45.0); Lymphocytes % 17.3 % (15.3-44.8); MCV 84.1 fL (80-100); MPV 6.7 fL (7.6-11.3)
[2022-01-04 20:51] LABS: Protime INR 1.03
--- NOTE | 2022-01-04 20:56 | RAD REPORT ---
EXAM DESCRIPTION: CT - Head C Spine Mpr Wo Con - 01/04/2022 8:47 pm CLINICAL HISTORY: Head and neck injury status post fall. Head and neck pain COMPARISON: November 2021 TECHNIQUE: Computed axial tomography of the head and cervical spine was obtained. Sagittal and coronal reconstruction was performed. All CT scans are performed using dose optimization technique as appropriate and may include automated exposure control or mA/KV adjustment according to patient size. FINDINGS: An intracranial bleed is not seen. Mild to moderate low-density areas within periventricul ar, deep and subcortical white matter probably ischemic changes secondary to small vessel disease The ventricles are normal in caliber. An extra-axial fluid collection is not noted.Fluid within the v isualized sinuses and mastoids is not seen A cervical fracture is not visualized. No dislocation is noted. Mild chronic anterior subluxation C5 on C6 IMPRESSION: No acute intracranial abnormality is seen. A cervical fracture is not visualized. If the patient continues to have symptoms to suggest intracra nial /spinal cord pathology then MRI would be recommended
[2022-01-04 20:58] LABS: Potassium 3.1 mmol/L (3.5-5.1); Troponin High Sensitivity 15.5 pg/mL (<58.9)
--- NOTE | 2022-01-04 20:58 | RAD REPORT ---
EXAM DESCRIPTION: CT - Facial Bones W/ Mpr - 01/04/2022 8:47 pm CLINICAL HISTORY: Facial injury TECHNIQUE: Computed axial tomography of the face was obtained. Coronal and sagittal reconstruction w as performed. All CT scans are performed using dose optimization technique as appropriate and may include automated exposure control or mA/KV adjustment according to patient size. FINDINGS: A fracture is not seen. A TMJ dislocation is not noted. The globes are intact. Fluid within the sinuses is not seen. Nasal septum is deviated towards the left IMPRESSION: Negative for a facial fracture.
--- NOTE | 2022-01-04 21:01 | RAD REPORT ---
EXAM DESCRIPTION: CTSpine Lumbar Wo Con01/04/2022 8:48 pm CLINICAL HISTORY: Back pain status post fall COMPARISON: November 2021 TECHNIQUE: Computed axial tomography lumbar spine was obtained with coronal and sagittal reconstruct ion. All CT scans are performed using dose optimization technique as appropriate and may include automated exposure control or mA/KV adjustment according to patient size. FINDINGS: No fracture is seen. No dislocation is noted. A high-grade central/foraminal stenosis is not noted. IMPRESSION: Negative for a lumbar fracture.
--- NOTE | 2022-01-04 21:07 | ER ---
Nurse's Notes [facility] Name: Fawn Fleming Age: 66 yrs Sex: Female : 1955 Arrival Date: 01/04/2022 Time: 18:18 Bed 24 Private MD: Lele Rahman H Diagnosis: Fall on same level from slipping, tripping and stumbling without subsequent striking against object;Low back pain;Pain in left wrist;Hypertensive heart disease with heart failure Presentation: 01/04 18:36 Chief complaint: Patient states: Tripped and fell in home, c/o pain to L wrist, low ph back and chin, denies LOC. Coronavirus screen: Vaccine status: Patient reports receiving the 2nd dose of the covid vaccine. Ebola Screen: No symptoms or risks identified at this time. Initial Sepsis Screen: Does the patient meet any 2 criteria? No. Patient's initial sepsis screen is negative. Does the patient have a suspected source of infection? No. Patient's initial sepsis screen is negative. Risk Assessment: Do you want to hurt yourself or someone else? Patient reports no desire to harm self or others. Onset of symptoms was January 04, 2022. 18:36 Method Of Arrival: Wheelchair ph 18:36 Acuity: BLAYNE 3 ph 20:23 Care prior to arrival: None. Mechanism of Injury: Fall. Trauma event details: Injury ld1 occurred in the [facility]. Historical: - Allergies: 18:38 Bactrim DS; ph 18:38 butorphanol tartrate; ph 18:38 Fentanyl; ph 18:38 Reglan; ph 18:38 Stadol; ph 18:38 sulfamethoxazole (bulk); ph 18:38 TRIMETHOPRIM; ph - PMHx: 18:38 Anxiety; Atrial Fib; Bipolar disorder; Chronic pain; COPD; esophageal varices; ph Hepatitis; HIV; Hypertension; Migraines; Panic Attacks; - PSHx: 18:38 Appendectomy; Bilateral shoulder repair; hernia repair; R wrist SX; Cholecystectomy; ph - Immunization history:: Adult Immunizations unknown. - Social history:: Smoking status: Patient denies any tobacco usage or history of. - Immunization history: Last tetanus immunization: unknown. Screenin:23 Abuse screen: Denies threats or abuse. Denies injuries from another. Tuberculosis ld1 screening: No symptoms or risk factors identified. 21:19 Nutritional screening: No deficits noted. Fall Risk None identified. ld1 Primary Survey: 20:23 NO uncontrolled hemorrhage observed. Breathing/Chest: Spontaneous respiratory effort, ld1 equal unlabored respirations, breath sounds clear bilaterally, regular pattern, symmetrical chest rise and fall. Circulation: No external hemorrhage present. Regular and strong central pulse, skin warm/dry/normal color. Disability Client is alert. Exposure/Environment: All clothing and personal items were removed. Forensic evidence collection is not deemed to be indicated at this time. Items placed in patient belonging bag. Reassessment Breathing: Spontaneous respiratory effort, equal unlabored respirations, breath sounds clear bilaterally, regular pattern with symmetrical chest rise and fall. Circulation: No external hemorrhage noted. Regular and strong central pulse, skin warm/dry/normal color. Disability: Alert. Assessment: 20:23 General: Appears in no apparent distress. comfortable, Behavior is calm, cooperative, ld1 appropriate for age. Pain: Complains of pain in left hand Pain does not radiate. Pain currently is 7 out of 10 on a pain scale. Quality of pain is described as throbbing. Neuro: Level of Consciousness is awake, alert, obeys commands, Oriented to person, place, time, situation. EENT: No signs and/or symptoms were reported regarding the EENT system. Cardiovascular: Capillary refill < 3 seconds Patient's skin is warm and dry. Respiratory: Airway is patent Respiratory effort is even, unlabored. GI: Abdomen is round non-distended. : No signs and/or symptoms were reported regarding the genitourinary system. Derm: No signs and/or symptoms reported regarding the dermatologic system. Musculoskeletal: No signs and/or symptoms reported regarding the musculoskeletal system. Vital Signs: 18:36 BP 187 / 95; Pulse 55; Resp 18; Temp 97.8; Pulse Ox 100% on R/A; Weight 90.72 kg; ph Height 5 ft. 4 in. (162.56 cm); 20:23 BP 175 / 105; Pulse 59; Resp 18; Pulse Ox 100% on R/A; ld1 18:36 Body Mass Index 34.33 (90.72 kg, 162.56 cm) ph Crystal Coma Score: 19:30 Eye Response: spontaneous(4). Verbal Response: oriented(5). Motor Response: obeys cp commands(6). Total: 15. 20:22 Eye Response: spontaneous(4). Verbal Response: oriented(5). Motor Response: obeys ld1 commands(6). Total: 15. Trauma Score (Adult): 20:22 Eye Response: spontaneous(1); Verbal Response: oriented(1); Motor Response: obeys ld1 commands(2); Systolic BP: > 89 mm Hg(4); Respiratory Rate: 10 to 29 per min(4); [place] Score: 15; Trauma Score: 12 ED Course: 18:18 Patient arrived in ED. mr 18:18 Lele Rahman DO is Private Physician. mr 18:29 Justus Neil PA is PHCP. cp 18:29 Jose Shah DO is Attending Physician. cp 18:38 Triage completed. ph 18:38 Arm band placed on Patient placed in waiting room, Patient notified of wait time. ph 18:39 X-ray ordered. ph 19:11 Prem Garcia MD is Attending Physician. cp 19:25 Wanda Rust, ASHLEY is Primary Nurse. ld1 19:42 XRAY Wrist LEFT 3 view In Process Unspecified. EDMS 20:23 Patient has correct armband on for positive identification. Placed in gown. Bed in low ld1 position. Call light in reach. Side rails up X2. Patient maintains SpO2 saturation greater than 95% on room air. 20:23 Patient maintains SpO2 saturation greater than 95% on room air. ld1 20:48 CT Head C Spine In Process Unspecified. EDMS 20:49 CT Facial Bones W/O Con In Process Unspecified. EDMS 20:49 CT Lumbar Spine Wo Con In Process Unspecified. EDMS 21:06 XRAY Chest (1 view) In Process Unspecified. EDMS 21:06 XRAY Pelvis In Process Unspecified. EDMS 21:19 No provider procedures requiring assistance completed. Patient did not have IV access ld1 during this emergency room visit. 21:19 Thermoregulation: warm blanket given to patient. ld1 Administered Medications: 20:22 Drug: Hydrocodone-Acetaminophen (7.5 mg-325 mg) 1 tabs Route: PO; ld1 21:10 Drug: Lidoderm Patch 5 % (700 mg/patch) 1 patches Route: Topical; Site: affected area; ld1 Medication: 21:19 VIS not applicable for this client. ld1 Output: 20:22 Urine: 1ml (Voided); Total: 1ml. ld1 Outcome: 21:07 Discharge ordered by . cp 21:19 Discharged to home ambulatory. ld1 21:19 Condition: stable 21:19 Discharge instructions given to patient, Instructed on discharge instructions, follow up and referral plans. Demonstrated understanding of instructions, follow-up care. 21:19 Patient's length of stay in the Emergency Department was greater than 2 hours. ld1 Patient's length of stay was extended due to staffing issues within the emergency department. 21:19 Patient left the ED. ld1 Signatures: Dispatcher [employer] EDMS Sergio Jessie morales Solange Bennett RN RN ph Justus Neil PA PA cp Dibbern, Lauren, ASHLEY RN ld1 Corrections: (The following items were deleted from the chart) 18:39 18:36 Chief complaint: Patient states: Tripped and fell in home, c/o pain to R wrist, ph low back and chin, denies LOC ph 18:39 18:38 Arm band placed on Patient placed in an exam room, ph ph
--- NOTE | 2022-01-04 21:07 | EDPHYS ---
Physician Documentation [facility] Name: Fawn Fleming Age: 66 yrs Sex: Female : 1955 Arrival Date: 01/04/2022 Time: 18:18 Bed 24 Private MD: Lele Rahman H ED Physician Prem Garcia HPI: 01/04 19:30 This 66 yrs old Female presents to ER via Wheelchair with complaints of Facial Injury, cp Shortness Of Breath. 19:30 The patient or guardian reports pain. The complaints affect the chin, left wrist. cp Context of injury: The problem was sustained at home, resulted from a fall, while walking. Onset: The symptoms/episode began/occurred today. Associated signs and symptoms: Pertinent positives: shortness of breath, Pertinent negatives: incontinence, neck pain, seizure, vomiting. Historical: - Allergies: 18:38 Bactrim DS; ph 18:38 butorphanol tartrate; ph 18:38 Fentanyl; ph 18:38 Reglan; ph 18:38 Stadol; ph 18:38 sulfamethoxazole (bulk); ph 18:38 TRIMETHOPRIM; ph - PMHx: 18:38 Anxiety; Atrial Fib; Bipolar disorder; Chronic pain; COPD; esophageal varices; ph Hepatitis; HIV; Hypertension; Migraines; Panic Attacks; - PSHx: 18:38 Appendectomy; Bilateral shoulder repair; hernia repair; R wrist SX; Cholecystectomy; ph - Immunization history:: Adult Immunizations unknown. - Social history:: Smoking status: Patient denies any tobacco usage or history of. - Immunization history: Last tetanus immunization: unknown. ROS: 19:35 Constitutional: Negative for body aches, chills, fever, poor PO intake. cp 19:35 Eyes: Negative for injury, pain, redness, and discharge. cp 19:35 ENT: Negative for drainage from ear(s), ear pain, sore throat, difficulty swallowing, difficulty handling secretions. 19:35 Cardiovascular: Negative for chest pain, edema, palpitations. 19:35 Respiratory: Positive for shortness of breath, at rest. 19:35 Abdomen/GI: Negative for abdominal pain, nausea, vomiting, and diarrhea. 19:35 Back: Positive for pain at rest, pain with movement, of the low back. 19:35 MS/extremity: Positive for pain, tenderness, of the left wrist, Negative for decreased range of motion, paresthesias. 19:35 Neuro: Negative for altered mental status, dizziness, headache, loss of consciousness, syncope. 19:35 All other systems are negative. Exam: 19:40 Constitutional: The patient appears in no acute distress, alert, awake, cp non-diaphoretic, non-toxic, well developed, well nourished. 19:40 Head/face: Noted is tenderness, that is mild, of the chin, Sinus tenderness, is not cp appreciated. 19:40 Eyes: Periorbital structures: appear normal, Pupils: equal, round, and reactive to light and accomodation, Extraocular movements: intact throughout, Conjunctiva: normal, no exudate, no injection, Sclera: no appreciated abnormality, Lids and lashes: appear normal, bilaterally. 19:40 ENT: External ear(s): are unremarkable, Nose: is normal, Mouth: Lips: moist, Oral mucosa: pink and intact, moist, Posterior pharynx: Airway: no evidence of obstruction, patent. 19:40 Neck: C-spine: vertebral tenderness, is not appreciated, crepitus, is not appreciated, ROM/movement: pain, is not appreciated, limited range of motion, is not appreciated. 19:40 Chest/axilla: Inspection: normal, Palpation: is normal, no crepitus, no tenderness. 19:40 Cardiovascular: Rate: bradycardic, Rhythm: irregular, Edema: is not appreciated, JVD: is not appreciated. 19:40 Respiratory: the patient does not display signs of respiratory distress, Respirations: normal, no use of accessory muscles, no retractions, labored breathing, is not present, Breath sounds: decreased breath sounds, are not appreciated, stridor, is not appreciated, wheezing: is not appreciated. 19:40 Abdomen/GI: Inspection: abdomen appears normal, Palpation: abdomen is soft and non-tender, in all quadrants. 19:40 Back: pain, that is moderate, of the low back area, ROM is normal, Straight leg raises: of both lower extremities does not illicit pain. 19:40 Musculoskeletal/extremity: Extremities: noted in the left wrist: pain, tenderness, There is no evidence of decreased ROM, ROM: full active range of motion, in the left wrist, Perfusion: the extremity is normally perfused throughout, the left hand Sensation intact. 19:40 Neuro: Orientation: to person, place \T\ time. Mentation: is normal, Motor: moves all fours, strength is normal, Sensation: is normal. 20:35 ECG was reviewed by the Attending Physician. cp Vital Signs: 18:36 BP 187 / 95; Pulse 55; Resp 18; Temp 97.8; Pulse Ox 100% on R/A; Weight 90.72 kg; ph Height 5 ft. 4 in. (162.56 cm); 20:23 BP 175 / 105; Pulse 59; Resp 18; Pulse Ox 100% on R/A; ld1 18:36 Body Mass Index 34.33 (90.72 kg, 162.56 cm) ph Crystal Coma Score: 19:30 Eye Response: spontaneous(4). Verbal Response: oriented(5). Motor Response: obeys cp commands(6). Total: 15. 20:22 Eye Response: spontaneous(4). Verbal Response: oriented(5). Motor Response: obeys ld1 commands(6). Total: 15. Trauma Score (Adult): 20:22 Eye Response: spontaneous(1); Verbal Response: oriented(1); Motor Response: obeys ld1 commands(2); Systolic BP: > 89 mm Hg(4); Respiratory Rate: 10 to 29 per min(4); Crystal Score: 15; Trauma Score: 12 MDM: 19:23 Patient medically screened. 21:07 Data reviewed: vital signs, nurses notes, lab test result(s), EKG, radiologic studies, cp CT scan, plain films. 21:07 Test interpretation: by ED physician or midlevel provider: ECG, plain radiologic cp studies. 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 ED course: VSS. Radiology studies negative for acute fractures. Will discharge to home for continued monitoring. 01/04 19:47 Order name: Basic Metabolic Panel; Complete Time: 21:03 cp 01/04 21:03 Interpretation: Normal except: K 3.1; GFR 82. cp 01/04 19:47 Order name: CBC with Diff cp 01/04 18:39 Order name: XRAY Wrist LEFT 3 view; Complete Time: 20:53 ph / 19:47 Order name: NT PRO-BNP; Complete Time: 21:03 cp 01/04 21:04 Interpretation: Abnormal: NT PRO-BNP 3487. cp 01/04 19:47 Order name: PT-INR; Complete Time: 20:53 cp 01/04 19:47 Order name: Troponin HS; Complete Time: 21:03 cp 01/04 19:46 Order name: CT Head C Spine; Complete Time: 21:03 cp 01/04 19:46 Order name: CT Facial Bones W/O Con; Complete Time: 21:03 cp 01/04 19:46 Order name: CT Lumbar Spine Wo Con; Complete Time: 21:03 cp 01/04 21:04 Interpretation: Report reviewed. cp 01/04 19:47 Order name: XRAY Chest (1 view) cp 01/04 20:02 Order name: XRAY Pelvis cp 01/04 19:47 Order name: EKG; Complete Time: 19:51 cp 01/04 19:47 Order name: Cardiac monitoring; Complete Time: 20:19 cp 01/04 19:47 Order name: EKG - Nurse/Tech; Complete Time: 20:56 cp 01/04 19:47 Order name: Labs collected and sent; Complete Time: 20:55 cp 01/04 19:47 Order name: O2 Per Protocol; Complete Time: 20:19 cp 01/04 19:47 Order name: O2 Sat Monitoring; Complete Time: 20:19 cp 01/04 20:12 Order name: Splint - Wrist; Complete Time: 20:22 cp EC:35 Rate is 67 beats/min. Rhythm is irregular. QRS interval is normal at 76 msec. QT cp interval is prolonged at 450 msec. Interpreted by me. Reviewed by me. Administered Medications: 20:22 Drug: Hydrocodone-Acetaminophen (7.5 mg-325 mg) 1 tabs Route: PO; ld1 21:10 Drug: Lidoderm Patch 5 % (700 mg/patch) 1 patches Route: Topical; Site: affected area; ld1 Disposition: 01/05 04:55 Co-signature as Attending Physician, Prem Garcia MD. mh7 Disposition Summary: 01/04/22 21:07 Discharge Ordered Location: Home cp Problem: new cp Symptoms: have improved cp Condition: Stable cp Diagnosis - Fall on same level from slipping, tripping and stumbling without subsequent cp striking against object - Low back pain cp - Pain in left wrist cp - Hypertensive heart disease with heart failure cp Followup: cp - With: Private Physician - When: 1 - 2 days - Reason: Recheck today's complaints Discharge Instructions: - Discharge Summary Sheet cp - Chronic Back Pain cp - Chronic Pain, Adult cp - Wrist Pain, Adult cp - Fall Prevention in the Home, Adult cp Forms: - Medication Reconciliation Form cp - Thank You Letter cp - Antibiotic Education cp - Prescription Opioid Use cp Prescriptions: - Lidoderm 5 % Topical adhesive patch,medicated - apply 1 patch by TOPICAL route once daily; 10 patch; Refills: 0, Product cp Selection Permitted Signatures: Dispatcher [employer] EDSolange Marrero RN RN ph Justus Neil, ALEJO PA cp Prem Garcia MD MD mh7 Wanda Rust RN RN ld1 Corrections: (The following items were deleted from the chart) 01/04 20:59 20:03 Lumbar Spine 3 Views+RAD.RAD.BRZ ordered. EDMS EDMS 21:14 19:47 IV Saline Lock ordered. cp ld1
--- NOTE | 2022-01-04 21:12 | RAD REPORT ---
EXAM DESCRIPTION: Patrick Single View01/04/2022 9:04 pm CLINICAL HISTORY: sob COMPARISON: December 29, 2011 FINDINGS: The lungs appear clear of acute infiltrate. The heart is normal size IMPRESSION: No acute abnormalities displayed
--- NOTE | 2022-01-04 21:13 | RAD REPORT ---
EXAM DESCRIPTION: RAD - Pelvis - 01/04/2022 9:04 pm CLINICAL HISTORY: Pelvic pain status post injury FINDINGS: No fracture or dislocation is seen.
[2022-01-04] MEDS ORDERED: LIDOCAINE 4% PATCH ONE (21:17)
[2022-01-04 23:31] LABS: Anisocytosis 1+; Blood Morphology Comment NOTED (NOT SEEN); Platelet Estimate DECR; White Blood Cell Scan OK (OK)
[2022-01-04 23:39] VITALS: TEMP 97.8; O2SAT 100
[2022-01-04 23:42] VITALS: BP 175/105
--- NOTE | 2022-01-05 08:12 | EKG ---
Test Date: 2022-01-04 Test Time: 20:29:08 Line Analyst: KANDIS MEASUREMENT RESULTS: Intervals: Rate: 67 [place]: QRSD: 76 QT: 450 QTc: 475 [place]: P: [place]: QRS: 47 T: -5 INTERPRETIVE STATEMENTS: Atrial fibrillation Nonspecific ST and T wave abnormality Prolonged QT Abnormal ECG Compared to ECG 12/28/2021 10:59:10 ST (T wave) deviation now present Prolonged QT interval now present Sinus bradycardia no longer present Left ventricular hypertrophy no longer present Early repolarization no longer present Electronically Signed On 01-05-22 08:11:02 CDT by Per Crane
== END 2022-01-04 21:19 | disposition home or self-care (01) ==
LOC: ER 18:16
DX: M25.532 Pain in left wrist (principal); M54.50 Low back pain, unspecified; I11.0 Hypertensive heart disease with heart failure; I50.9 Heart failure, unspecified; W01.0XXA Fall on same level from slipping, tripping and stumbling without subsequent striking against object, initial encounter
CPT/HCPCS: 93005; 85025; 80048; 36415; 85610; 84484; 83880; 72131; 70450; 72125; 70486; 76377; 71045; 72170; 73110; 99284; J2001

== ENCOUNTER 2022-01-05 18:18 | Emergency (ER) | payer OTHER ==
--- OUTSIDE RECORDS SUMMARY | 2022-01-05 18:28 | XMS REPORT | Continuity of Care Document ---
:1955 Author Organization [facility] t Address [address] [place] [address] Care Team Providers Name Role Phone Urmila Rahman Primary Care Physician Mike Lund Attending Clinician Unavailable ELAN LIRA Attending Clinician Unavailable SANTIAGO CARDENAS Attending Clinician Unavailable Doctor Unassigned, Firth Attending Clinician Unavailable Bill GUO Attending Clinician Unavailable Bill Rose Attending Clinician [facility] Attending Clinician Unavailable Santiago Sanchez Attending Clinician Beverly Layton MD Attending Clinician Eliseo Arce MD Attending Clinician Carol Ann RHINESTONE SETTER, Sarai Lieberman Attending Clinician [phone] Prabhu SANCHEZ, Ashly Attending Clinician Unavailable Robbi Bal Attending Clinician Monica Rodas MA Attending Clinician Unavailable Agustina Ortiz MA Attending Clinician Unavailable Remigio JENKINS, Kirit Barnes Attending Clinician BEVERLY LAYTON Attending Clinician Unavailable DO PORSHA STREETER Attending Clinician Unavailable Lele Rahman Kristen Admitting Clinician Unavailable Bill GUO Admitting Clinician Unavailable Mike Lund Admitting Clinician Unavailable ELISEO ARCE Admitting Clinician Unavailable DO PORSHA STREETER Admitting Clinician Unavailable Payers Payer Name Policy Type Policy Number Effective Date Expiration Date S gabino [facility] COMMUNITY [id number] 2012 STARPLUS OON 00:00:00 EXCEPT [facility] DUAL [id number] 2020 COMP HMO D SNP 00:00:00 [place]ICAID [place] [id number] 2020 00:00:00 Problems Condition Condition Condition Status Onset Resolution Last Treating Co mments Source Name Details Category Date Date Treatment Clinician Date Gastropare Gastropare Disease Active Overview : Methodi sis sis 4-[address] 00:00: [facility] note l might be different from the original. Added automatic ally from request for surgery [id number] Dysphagia Dysphagia Disease Active Overview: Methodi 4-[address] 00:00: [facility] 00 note l might be different from the original. 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 2020-10-15 Memoria PVI PVI 3-30 17:07:00 l ABLATION ABLATION 00:00: Patel n W/ CARTO / W/ CARTO / 00 GA / T GA / T Active 08/19/2020 [facility] Food Food Disease Active 2019-05 [...] Clinician codeine DA Active SV N/V [facility] 1- Clear 00:00: Garcia 00 [facility] sulfamet DA Active SV N/V [facility] hoxazole - Clear 00:00: Garcia [facility] trimetho DA Active SV [facility] prim 06-16 Clear 00:00: Garcia [facility] Metoclop Propensi Active [place] ramide ty to 12-12 Health adverse 00:00: reaction 00 s BUTORPHA DRUG Active Unknown-Cmnt Un matt NOL INGREDI 11-25 ity of 00:00: [place] 00 Medical Branch Butorpha Drug Active Unknown [...] 2017- Univers INGREDI 2-08 ity of 00:00: 00 Medical Branch TRIMETHO DRUG Active Hives 2017- Univers PRIM INGREDI 2-08 ity of 00:00: 00 Medical Branch Fentanyl Drug Active Other - See Unknown Un matt Allergy comments 2 reaction ity o f 00:00: 00 Medical Branch Trimetho Propensi Active Hives 2017- Univer s prim ty to 2-08 ity of adverse 00:00: [place] reaction 00 Medical s Branch Fentanyl Allergy Active Unknown 2018-0 Other [place] to 2-08 reaction( Health substanc [...] Medical s Branch METOCLOP DRUG Active Anxiety 2014-0 Univers RAMIDE INGREDI 9-25 ity of HCL [...] Date Stop Date Source Natural [facility] Kid[facility] Social History Social Habit Start Date Stop Date Quantity Comments Source History [facility] Alcohol Comment History of tobacco Smoker Method ist use Hospital History [facility] Jain Alcohol Frequency Hospita l History SDKS Jain Alcohol Std Drinks Hospit al History [facility] Jain Alcohol Binge Hospital Exposure to 2021-12-02 2021-12-12 Not sure University SARS-CoV-2 (event) 00:00:00 23:54:00 [facility] Alcohol intake 2021-07-14 2021-07-14 Ex-drinker [facility] 00:00:00 00:00:00 (finding) Cigarettes smoked 2020-09-05 2020-09-[address] current (pack per 00:00[facility] - [facility]orted Cigarette 2020-09-05 2020-09-05 Jain pack-years 00:00:00 00:00:00 Hospital Tobacco use and 2020-08-06 2020-08-06 Former smokeless Uni versity of exposure 00:00:00 00:00:00 tobacco user [facility] Tobacco Comment 2015-02-14 2015-02-14 Smokes approx 1-2 Un iversity of 00:00:00 00:00:00 cigarettes per [facility] day when she Branch smokes Sex [birth year] [facility] 00:00:00 00:00:00 Smoking Status Start Date Stop Date Source Ex-smoker 2020-08-06 00:00:00 2020-08-06 00:00:00 [facility] Medications Ordered Filled Start Stop Current Ordering Indication Dosage Frequency Signature Comments Components Source Medication Medication Date Date Medication? Clinician (SIG) Name Name methocarbam No 500mg 500 mg, U nivers oL 12-13 Oral, ity of (ROBAXIN) 07:45: 06:35 ONCE, 1 [place] tablet 500 [place] :00 dose, On Medic al mg [facility] 12/13/21 at 0245, Routine ketorolac No 30mg 30 mg, Unive rs (TORADOL) 12-13 Intramuscu ity of injection 07:45: 06:34 [place], ONCE, [place] 30 mg 00 :00 1 dose, On Medical [place] [facility] 12/13/21 at 0245, JOE naproxen 2021-0 Yes [id number] 500mg Take 1 U nivers (NAPROSYN) 7-24 tablet by ity of 500 mg 00:00: mouth in [place] tablet 00 the Medical morning Branch and 1 tablet in the evening. Take with meals. methocarbam 2022-0 Yes [id number] 500mg Take 1 Univers oL 500 mg 7-24 tablet by ity o f tablet 00:00: mouth 4 [place] 00 (four) Medical times Branch daily. naproxen 202-0 Yes [id number] 500mg Take 1 U nivers (NAPROSYN) 7-24 tablet by ity of 500 mg 00:00: mouth in [place] tablet 00 the Medical morning Branch and 1 tablet in the evening. Take with meals. methocarbam 2021-0 Yes [id number] 500mg Take 1 Univers oL 500 mg 7-24 tablet by ity o f tablet 00:00: mouth 4 [place] 00 (four) Medical times Branch daily. hydralAZINE 2021-0 Yes 25mg Take 25 mg Univers (APRESOLINE 7-01 by mouth ity of ) 25 mg 08:47: daily. [place] tablet Medical Branch hydralAZINE 2021-0 Yes 25mg Take 25 mg Univers (APRESOLINE 7-01 by mouth ity of ) 25 mg 08:47: daily. [place] [address] Medical Branch hydralAZINE 2021-0 Yes 25mg Take 25 mg Univers (APRESOLINE 7-01 by mouth ity of ) 25 mg 08:47: daily. [place] [address] Medical Branch buPROPion 2021-0 Yes [id number] 150mg Take 1 U nivers XL 4-12 tablet by ity of (WELLBUTRIN 00:00: mouth [place] XL) 150 mg 00 daily. Medical 24 hr Branch tablet busPIRone 2021-0 Yes [id number] 30mg Take 1 Un matt 30 mg 4-12 tablet by ity of tablet 00:00: mouth 2 [place] 00 (two) Medical times Branch daily. SERTraline 2021-0 Yes [id number] 200mg Take 2 Univers 100 mg 4-12 tablets by ity of tablet 00:00: mouth [place] 00 daily. Medical Branch buPROPion 2021-0 Yes [id number] 150mg Take 1 U nivers XL 4-12 tablet by ity of (WELLBUTRIN 00:00: mouth [place] XL) 150 mg 00 daily. Medical 24 hr Branch tablet busPIRone 2021-0 Yes [id number] 30mg Take 1 Un matt 30 mg 4-12 tablet by ity of tablet 00:00: mouth 2 [place] 00 (two) Medical times Branch daily. SERTraline 2021-0 Yes [id number] 200mg Take 2 Univers 100 mg 4-12 tablets by ity of tablet 00:00: mouth [place] 00 daily. Medical Branch buPROPion 2021-0 Yes [id number] 150mg Take 1 U nivers XL 4-12 tablet by ity of (WELLBUTRIN 00:00: mouth [place] XL) 150 mg 00 daily. Medical 24 hr Branch tablet busPIRone 2021-0 Yes [id number] 30mg Take 1 Un matt 30 mg 4-12 tablet by ity of tablet 00:00: mouth 2 [place] 00 (two) Medical times Branch daily. SERTraline 2021-0 Yes [id number] 200mg Take 2 Univers 100 mg 4-12 tablets by ity of tablet 00:00: mouth [place] 00 daily. Medical Branch raltegravir 0 Yes [id number] 400mg Take 1 Univers (ISENTRESS) 3-28 tablet by ity of 400 mg 00:00: mouth 2 [place] tablet 00 (two) Medical times Branch daily. raltegravir 0 Yes [id number] 400mg Take 1 Univers (ISENTRESS) 3-28 tablet by ity of 400 mg 00:00: mouth 2 [place] tablet 00 (two) Medical times Branch daily. raltegravir 2021-0 Yes [id number] 400mg Take 1 Univers (ISENTRESS) 3-28 tablet by ity of 400 mg 00:00: mouth 2 [place] tablet 00 (two) Medical times Branch daily. raltegravir 2021-0 Yes [id number] 400mg Take 1 Univers (ISENTRESS) 3-28 tablet by ity of 400 mg 00:00: mouth 2 [place] tablet 00 (two) Medical times Branch daily. LORazepam 1 0 Yes [id number] 1mg Take 1 Univers mg tablet 3-21 tablet by ity o f 00:00: mouth 3 [place] 00 (three) Medical times Branch daily as needed (anxiety). raltegravir 2022-0 Yes 400mg Q.5D Take 400 U T [...] times a tablet day. buPROPion 2021- No [id number] 150mg Take 1 Univers XL -24 04-12 tablet by ity of (WELLBUTRIN 00:00: 00:00 [place] XL) 150 mg 00 :00 daily. Medical 24 hr Branch tablet busPIRone 2021- No [id number] 30mg Take 1 U nivers 30 mg -24 04-12 tablet by ity of tablet 00:00: 00:00 mouth 2 [place] 00 :00 (two) Medical times Branch daily. SERTraline 2021- No [id number] 200mg Take 2 Univers 100 mg -24 -12 tablets by ity of tablet 00:00: 00:00 mouth [place] 00 :00 daily. Medical Branch emtricitabi Yes [id number] Take one Univers ne-tenofovi 1-20 po daily ity of r alafen 00:00: [place] (DESCOVY) 00 Medical tablet Branch emtricitabi Yes [id number] Take one Univers ne-tenofovi 1-20 po daily ity of r alafen 00:00: [place] (DESCOVY) 00 Medical tablet Branch emtricitabi Yes [id number] Take one Univers ne-tenofovi 1-20 po daily ity of r alafen 00:00: [place] (DESCOVY) 00 Medical tablet Branch emtricitabi Yes [id number] Take one Univers ne-tenofovi 1-20 po daily ity of r alafen 00:00: [place] (DESCOVY) 00 Medical tablet Branch metoprolol Yes [id number] Take 1 [facility] tartrate 7-26 tablet Health (Lopressor) 00:00: (100 mg 100 MG 00 total) by tablet mouth 2 (two) times a day AND 0.5 tablets (50 mg total) every night. metoprolol 0 Yes [id number] Take 1 [place] tartrate 7-26 tablet Health [...] area in groin) hydrALAZINE 0 Yes 50mg Q.[id number] Take 50 mg Methodi (APRESOLINE 7-[id number] mouth [address] ) 50 MG [...] Hospita tablet 25 daily. l nystatin-tr Yes [id number] Apply to [facility] 7-06 area(s) 3 ity of cream 00:00: (three) [place] 00 times Medical daily. Branch nystatin-tr 2020-0 Yes [id number] Apply to [facility] iainolone 7-06 area(s) 3 ity of cream 00:00: (three) [place] 00 times Medical daily. Branch nystatin-tr 2020-0 [id number] [facility] ity of cream 00:00: (three) [place] 00 times Medical daily. Branch nystatin-tr 0 Yes [id number] Apply to [facility] 7-06 area(s) 3 ity of cream 00:00: (three) [place] 00 times Medical daily. Branch budesonide- 2020-0 2020- No 1{puff} QD Inhale 1 Methodi formoteroL 6-25 06-[address] (SYMBICORT) 14:37: 00:00 morning. H ospita 160-4.5 02 :00 l mcg/actuati on inhaler hydrALAZINE 2020-0 Yes [id number] 50mg Q.[id number] Take 1 [facility] (Apresoline 6-11 [id number] tablet (50 Health ) 50 MG 00:00: 3D mg total) tablet 00 by mouth 3 (three) times a day. hydrALAZINE 2020-0 Yes [id number] 50mg Q.[id number] Take 1 [place] (Apresoline 6-11 [id number] tablet (50 Health ) 50 MG 00:00: 3D mg total) tablet 00 by mouth 3 (three) times a day. Breztri 2020-0 Yes [facility] Aerosphere 6-09 Health 160-9-4.8 00:00: MCG/ACT 00 aerosol Breztri 2020-0 Yes [place] Aerosphere 6-09 Health 160-9-4.8 00:00: MCG/ACT 00 aerosol albuterol 2020-0 Yes UT (2.5 6-02 Health MG/3ML) 00:00: 0.083% 00 nebulizer solution albuterol 2020-0 2022- No UT (2.5 6-02 02-22 Health MG/3ML) [...] % 00:00: ointment 00 nystatin 2020- No [id number] Q.25D Take 5 mL Methodi (MYCOSTATIN 5-17 [...] 4-10 (Same as: l 14:00: Norvasc) [place] emtricitabi No Notes: Caesar lisa ne 200 [...] 4-10 Tablet l 14:00: should not [place] 00 be chewed or crushed. (Same as: [...] 4-10 (Same as: l 14:00: Cordarone) [place] Amlodipine No Notes: Memor ia 4-10 (Same as: l 14:00: Norvasc) [place] emtricitabi No Notes: Caesar lisa ne 200 MG / 4-10 (Same as: l tenofovir 14:00: Descovy) Herm ariel alafenamide 00 Non-formul 25 MG Oral nancy Tablet [Descovy] Sertraline No Notes: Memor ia 4-10 (Same as: l 14:00: Zoloft) [place] 00 pantoprazol No Notes: Caesar lisa e 4-10 Tablet l 14:00: should not [place] 00 be chewed or crushed. (Same as: Protonix) Amiodarone No Notes: Memor ia 4-10 (Same as: l 14:00: Cordarone) [place] 00 Amlodipine No Notes: Memor ia 4-10 (Same as: l 14:00: Norvasc) [place] 00 emtricitabi No Notes: Caesar lisa ne [...] 4-10 (Same as: l 14:00: Cordarone) [place] Amlodipine No Notes: Memor ia 4-10 (Same as: l 14:00: Norvasc) [place] emtricitabi No Notes: Caesar lisa ne 200 MG / 4-10 (Same as: l tenofovir 14:00: Descovy) Herm ariel alafenamide 00 Non-formul 25 MG Oral nancy Tablet [Descovy] Sertraline No Notes: Memor ia 4-10 (Same as: l 14:00: Zoloft) [place] pantoprazol No Notes: Caesar lisa e 4-10 Tablet l 14:00: should not [place] 00 be chewed or crushed. (Same as: Protonix) Amiodarone No Notes: Memor ia 4-10 (Same as: l 14:00: Cordarone) [place] Amlodipine No Notes: Memor ia 4-10 (Same [...] 4-10 Tablet l 14:00: should not [place] 00 be chewed or crushed. (Same as: [...] 4-10 Same as: l 02:00: Eliquis [place] Hydralazine No Notes: Caesar lisa Hydrochlori 4-10 [...] emoria 4-10 interfere l 02:00: w/enteral [place] 00 feeds - Take 1 hr before [...] 4-10 Same as: l 02:00: Eliquis [place] Hydralazine No Notes: Caesar lisa Hydrochlori 4-10 (Same as: l de 50 MG 02:00: Apresoline Her mitchell Oral Tablet 00 ) May interfere w/enteral feedings Take With Food Sucralfate No Notes: May M emoria 4-10 interfere l 02:00: w/enteral [place] 00 feeds - Take 1 hr before [...] 4-10 Same as: l 02:00: Eliquis [place] Hydralazine No Notes: Caesar lisa Hydrochlori 4-10 [...] 4-10 (Same as: l 02:00: BD [place] 00 Posiflush) Eliquis No Notes: Memoria 4-10 Same as: l 02:00: Eliquis [place] Hydralazine No Notes: Caesar lisa Hydrochlori 4-10 (Same as: l de 50 MG 02:00: Apresoline Her mit[place] Oral Tablet 00 ) May interfere w/enteral feedings Take With Food Sucralfate No Notes: May M emoria 4-10 interfere l 02:00: w/enteral [place] 00 feeds - Take 1 hr before [...] 4-10 Same as: l 02:00: Eliquis [place] 00 Hydralazine No Notes: Caesar lisa Hydrochlori [...] exceed l #3 00:12: 4gm/day of [place] 00 acetaminop hen. (Same as: Tylenol with Codeine # 3) acetaminoph No Notes: Do M emoria en-codeine 4-10 not exceed l #3 00:12: 4gm/day of [place] acetaminop hen. (Same as: Tylenol with Codeine [...] 4-09 tab, l 22:00: Route: PO, [place] 00 Drug form: TAB, BID, Dosing Weight 97.273, kg, Start date: 08/29/20 17:00:00 CDT, Duration: 30 day, Stop date: 09/28/20 9:00:00 CDT metoprolol 2021-0 No 100 mg, 1 Me moria tartrate 4-09 tab, l 22:00: Route: PO, [place] Drug form: TAB, BID, Dosing Weight 97.273, [...] 4-09 tab, l 22:00: Route: PO, [place] Drug form: TAB, BID, Dosing Weight 97.273, [...] 4-09 tab, l 22:00: Route: PO, [place] Drug form: TAB, BID, Dosing Weight 97.273, [...] 4-09 tab, l 22:00: Route: PO, [place] Drug form: TAB, BID, Dosing Weight 97.273, kg, Start date: 08/29/20 17:00:00 CDT, Duration: 30 day, Stop date: 09/28/20 9:00:00 CDT metoprolol 1-0 No 100 mg, 1 Me moria tartrate 4-09 tab, l 22:00: Route: PO, [place] 00 Drug form: TAB, BID, Dosing Weight [...] 4-09 tab, l 22:00: Route: PO, [place] 00 Drug form: TAB, BID, Dosing Weight [...] oria 4- tab, l 22:00: Route: PO, [place] Drug form: TAB, BID, Dosing Weight 97.273, [...] Memoria 4-09 (Same l 17:07: as:MORPhin [place] 00 e Sulfate) Morphine No Notes: Memoria 4-09 (Same l 17:07: as:MORPhin [place] 00 e Sulfate) Morphine No Notes: Memoria 4-09 (Same l 17:07: as:MORPhin [place] 00 e Sulfate) Morphine No Notes: Memoria 4-09 (Same l 17:07: as:MORPhin [place] 00 e Sulfate) Morphine No Notes: Memoria 4-09 (Same l 17:07: as:MORPhin [place] 00 e Sulfate) Morphine No Notes: Memoria 4-09 (Same l 17:07: as:MORPhin [place] 00 e Sulfate) Morphine 2020-0 No Notes: Memoria 08-29 (Same l 17:07: as:MORPhin [place] 00 e Sulfate) buPROPion 1-0 No 150 [...] PO, l oral 15:27: Daily, # [place] enteric 00 30 tab, 0 coated Refill(s), tablet Pharmacy: [facility] 149, 162.56, cm, 08/29/20 5:30:00 CDT, Height, 97.273, kg, 08/29/20 5:30:00 CDT, Weight pantoprazol 2020-0 Yes 40 mg = 1 M emoria e 40 mg 4-09 tab, PO, l oral 15:27: Daily, # [place] enteric 00 30 tab, 0 coated Refill(s), tablet Pharmacy: [facility] 149, 162.56, cm, 08/29/20 5:30:00 CDT, Height, 97.273, kg, 08/29/20 5:30:00 CDT, Weight pantoprazol 1-0 Yes 40 mg = 1 M emoria e 40 mg 4-09 tab, PO, l oral 15:27: Daily, # [place] enteric 00 30 tab, 0 coated Refill(s), tablet Pharmacy: [facility] 149, 162.56, cm, 08/29/20 5:30:00 CDT, Height, 97.273, kg, 08/29/20 5:30:00 CDT, Weight pantoprazol 1-0 Yes 40 mg = 1 M emoria e 40 mg 4-09 tab, PO, l oral 15:27: Daily, # [place] enteric 00 30 tab, 0 coated Refill(s), tablet Pharmacy: [facility] 149, 162.56, cm, 08/29/20 5:30:00 CDT, Height, 97.273, kg, 08/29/20 5:30:00 CDT, Weight pantoprazol 2020-0 Yes 40 mg = 1 M emoria e 40 mg 4-09 tab, PO, l oral 15:27: Daily, # [place] enteric 00 30 tab, 0 coated Refill(s), tablet Pharmacy: [facility] 149, 162.56, cm, 08/29/20 5:30:00 CDT, Height, 97.273, kg, 08/29/20 5:30:00 CDT, Weight pantoprazol 2020-0 Yes 40 mg = 1 M emoria e 40 mg 4-09 tab, PO, l oral 15:27: Daily, # [place] enteric 00 30 tab, 0 coated Refill(s), tablet Pharmacy: [facility] 149, 162.56, cm, 08/29/20 5:30:00 CDT, Height, 97.273, kg, 08/29/20 5:30:00 CDT, Weight pantoprazol 2020-0 Yes 40 mg = 1 M emoria e 40 mg 4-09 tab, PO, l oral 15:27: Daily, # [place] enteric 00 30 tab, 0 coated Refill(s), tablet Pharmacy: [facility] 149, 162.56, cm, 08/29/20 [...] nn 00 tab, 0 Refill(s), Pharmacy: [facility] 149, 162.56, cm, 08/29/20 5:30:00 CDT, Height, 97.273, kg, 08/29/20 5:30:00 CDT, Weight pantoprazol 2020-0 No 40 mg = 1 M emoria e 40 mg 4-09 tab, PO, l oral 15:26: Daily, # [place] enteric 00 30 tab, 0 coated Refill(s) tablet sucralfate 2020-0 Yes 1 gm = 1 Mem oria 1 g oral 4-09 tab, PO, l tablet 15:26: Q12H, # 28 Skylar nn 00 tab, 0 Refill(s), Pharmacy: [facility] 149, 162.56, cm, 08/29/20 5:30:00 CDT, Height, 97.273, kg, 08/29/20 5:30:00 CDT, Weight pantoprazol 2020-0 No 40 mg = 1 M emoria e 40 mg 4-09 tab, PO, l oral 15:26: Daily, # [place] enteric 00 30 tab, 0 coated Refill(s) tablet sucralfate 2020-0 Yes 1 gm = 1 Mem oria 1 g oral 4-09 tab, PO, l tablet 15:26: Q12H, # 28 Skylar nn 00 tab, 0 Refill(s), Pharmacy: [place] [id number], 162.56, cm, 08/29/20 5:30:00 CDT, Height, 97.273, kg, 08/29/20 5:30:00 CDT, Weight pantoprazol 2020-0 No 40 mg = 1 M emoria e 40 mg 4-09 tab, PO, l oral 15:26: Daily, # [place] enteric 00 30 tab, 0 coated Refill(s) tablet sucralfate 2020-0 Yes 1 gm = 1 Mem oria 1 g oral 4-09 tab, PO, l tablet 15:26: Q12H, # 28 [place] nn 00 tab, 0 Refill(s), Pharmacy: [facility] 149, 162.56, cm, 08/29/20 5:30:00 CDT, Height, 97.273, kg, 08/29/20 5:30:00 CDT, Weight pantoprazol 2020-0 No 40 mg = 1 M emoria e 40 mg 4-09 tab, PO, l oral 15:26: Daily, # [place] enteric 00 30 tab, 0 coated Refill(s) tablet sucralfate 2020-0 Yes 1 gm = 1 Mem oria 1 g oral 4-09 tab, PO, l tablet 15:26: Q12H, # 28 [place]yl[place] nn 00 tab, 0 Refill(s), Pharmacy: [facility] 149, 162.56, cm, 08/29/20 5:30:00 CDT, Height, 97.273, kg, 08/29/20 5:30:00 CDT, Weight pantoprazol No 40 mg = 1 M emoria e 40 mg 4-09 tab, PO, l oral 15:26: Daily, # [place] enteric 00 30 tab, 0 coated Refill(s) tablet sucralfate Yes 1 gm = 1 Mem oria 1 g oral 4-09 tab, PO, l tablet 15:26: Q12H, # 28 [place] nn 00 tab, 0 Refill(s), Pharmacy: [facility] 149, 162.56, cm, 08/29/20 5:30:00 CDT, Height, 97.273, kg, 08/29/20 5:30:00 CDT, Weight pantoprazol No 40 mg = 1 M emoria e 40 mg 4-09 tab, PO, l oral 15:26: Daily, # [place] enteric 00 30 tab, 0 coated Refill(s) tablet sucralfate Yes 1 gm = 1 Mem oria 1 g oral 4-09 tab, PO, l tablet 15:26: Q12H, # 28 Skyl[place] nn 00 tab, 0 Refill(s), Pharmacy: [facility] 149, 162.56, cm, 08/29/20 [...] 4-09 (Same as: l 15:25: Ativan) [place] Saline No Notes: Memoria Flush 0.9% 4-09 (Same as: l 15:25: BD [place] 00 Posiflush) Saline No Notes: Memoria Flush 0.9% 4-09 (Same as: l 15:25: BD [place] 00 Posiflush) Lorazepam No Notes: Memori a 4-09 (Same as: l 15:25: Ativan) [place] 00 Lorazepam No Notes: Memori a 4-09 (Same as: l 15:25: Ativan) [place] 00 Saline No Notes: Memoria Flush 0.9% 4-09 (Same as: l 15:25: BD [place] 00 Posiflush) Lorazepam No Notes: Memori a [...] form: l mg + 15:00: INJ, [place] 00 Dosing Weight 97.3, kg, Start date: 08/29/20 10:00:00 CDT, Stop date: 08/29/20 11:00:00 CDT Isuprel HCl 2020-0 No Route: IV, Memoria (ANES) 0.2 08-29 Drug form: l mg + 15:00: INJ, [place] 00 Dosing Weight 97.3, kg, Start date: 08/29/20 10:00:00 CDT, Stop date: 08/29/20 11:00:00 CDT Isuprel HCl 2020-0 No Route: IV, Memoria (ANES) 0.2 08-29 Drug form: l mg + 15:00: INJ, [place] 00 Dosing Weight 97.3, kg, Start date: 08/29/20 10:00:00 CDT, Stop date: 08/29/20 11:00:00 CDT Isuprel HCl 2020-0 No Route: IV, Memoria (ANES) 0.2 08-29 Drug form: l mg + 15:00: INJ, [place] 00 Dosing Weight 97.3, kg, Start date: [...] a 08-29 Route: l 14:01: IVP, [place] 00 Q5Min, Dosing Weight 97.273, kg, PRN [...] 08-29 Route: l 14:01: IVP, PRN, [place] 00 Dosing Weight 97.273, kg, PRN Benzodiaze [...] 08-29 Route: l 14:01: IVP, ONCE, [place] 00 Dosing Weight 97.273, kg, PRN Nausea [...] ne 08-29 Route: l 14:01: IVP, [place] 00 Q5Min, Dosing Weight 97.273, kg, PRN [...] ne 08-29 Route: l 14:01: IVP, [place] 00 Q5Min, Dosing Weight 97.273, kg, PRN Pain Score 7-10, Start date: 08/29/20 9:01:00 CDT, Duration: 4 doses or times, Stop date: Limited # of times Flumazenil 1-0 No 0.2 mg, Caesar lisa 08-29 Route: l 14:01: IVP, PRN, [place] 00 Dosing Weight 97.273, kg, PRN Benzodiaze pine Reversal, Initial dose, Start date: 08/29/20 9:01:00 CDT, Duration: 30 day, Stop date: 09/28/20 9:00:00 CDT Naloxone 1-0 No 0.4 mg, Memori a 08-29 Route: l 14:01: IVP, [place] 00 Q2MIN, Dosing Weight 97.273, kg, PRN Narcotic Reversal, Start date: 08/29/20 9:01:00 CDT, Duration: 8 doses or times, Stop date: Limited # of times Flumazenil 1-0 No 0.2 mg, Caesar lisa 08-29 Route: l 14:01: IVP, PRN, [place] 00 Dosing Weight 97.273, kg, PRN Benzodiaze pine Reversal, Initial dose, Start date: 08/29/20 9:01:00 CDT, Duration: 30 day, Stop date: 09/28/20 9:00:00 CDT Ondansetron 1-0 No 4 mg, Memor ia 08-29 Route: l 14:01: IVP, ONCE, [place] 00 Dosing Weight 97.273, kg, PRN Nausea [...] 08-29 Route: l 14:01: IVP, ONCE, [place] 00 Dosing Weight 97.273, kg, PRN Nausea & Vomiting, Start date: 08/29/20 9:01:00 CDT Labetalol 2021-0 No 10 mg, Memori a 08-29 Route: l 14:01: IVP, [place] 00 Q5Min, Dosing Weight 97.273, kg, PRN Elevated BP, Start date: 08/29/20 9:01:00 CDT, Duration: 5 doses or times, Stop date: Limited # of times Acetaminoph 1-0 No 1,000 mg, M emoria en 08-29 Route: PO, l 14:01: Drug form: [place] 00 TAB, ONCE, Dosing Weight 97.273, kg, [...] a 08-29 Route: l 14:01: IVP, [place] 00 Q2MIN, Dosing Weight 97.273, kg, PRN Narcotic Reversal, Start date: 08/29/20 9:01:00 CDT, Duration: 8 doses or times, Stop date: Limited # of times Ondansetron 1-0 No 4 mg, Memor ia 08-29 Route: l 14:01: IVP, ONCE, [place] 00 Dosing Weight 97.273, kg, PRN Nausea & Vomiting, Start date: 08/29/20 9:01:00 CDT Labetalol 1-0 No 10 mg, Memori a 08-29 Route: l 14:01: IVP, [place] 00 Q5Min, Dosing Weight 97.273, kg, PRN Elevated BP, Start date: 08/29/20 9:01:00 CDT, Duration: 5 doses or times, Stop date: Limited # of times Acetaminoph 1-0 No 1,000 mg, M emoria en 08-29 Route: PO, l 14:01: Drug form: [place] 00 TAB, ONCE, Dosing Weight 97.273, kg, [...] ne 08-29 Route: l 14:01: IVP, [place] 00 Q5Min, Dosing Weight 97.273, kg, PRN Pain Score 7-10, Start date: 08/29/20 9:01:00 CDT, Duration: 4 doses or times, Stop date: Limited # of times Flumazenil 2020-0 No 0.2 mg, Caesar lisa 08-29 Route: l 14:01: IVP, PRN, [place] 00 Dosing Weight 97.273, kg, PRN Benzodiaze [...] ne 08-29 Route: l 14:01: IVP, [place] 00 Q5Min, Dosing Weight 97.273, kg, PRN [...] 08-29 Route: l 14:01: IVP, ONCE, [place] 00 Dosing Weight 97.273, kg, PRN Nausea & Vomiting, Start date: 08/29/20 9:01:00 CDT Labetalol 1-0 No 10 mg, Memori a 08-29 Route: l 14:01: IVP, [place] 00 Q5Min, Dosing Weight 97.273, kg, PRN Elevated BP, Start date: 08/29/20 9:01:00 CDT, Duration: 5 doses or times, Stop date: Limited # of times Acetaminoph 1-0 No 1,000 mg, M emoria en 08-29 Route: PO, l 14:01: Drug form: [place] 00 TAB, ONCE, Dosing Weight 97.273, kg, [...] ONCE, Stop date: 08/29/20 8:42:00 CDT fentaNYL 2021-0 No Route: IV, Mem oria (ANES) 08-29 Drug form: l 13:42: INJ, ONCE, Marty Stop date: 08/29/20 8:42:00 CDT fentaNYL 2020- No Route: IV, Mem oria (ANES) 08-29 Drug form: l 13:42: INJ, ONCE, [place] Stop date: 08/29/20 8:42:00 CDT fentaNYL 2020- No Route: IV, Mem oria (ANES) 08-29 Drug form: l 13:42: INJ, ONCE, Marty Stop date: 08/29/20 8:42:00 CDT norepinephr 2020-0 No Route: IV, Memoria ine (ANES) 08-29 Drug form: l 10 13:15: INJ, Start [place] microgram date: 08/29/20 8:15:00 CDT, Stop date: [...] form: l 10 13:15: INJ, Start [place] microgram date: 08/29/20 8:15:00 CDT, Stop date: [...] Total l 0.9% IV 12:30: Volume: [place] (ANES) 1000 00 1,000, mL Start date: [...] Total l 0.9% IV 12:30: Volume: [place] (ANES) 1000 00 1,000, mL Start date: 08/29/20 7:30:00 CDT, Stop date: 08/29/20 8:30:00 CDT Sodium 2020-0 No Route: IV, Memor ia Chloride 4-09 Total l 0.9% IV 12:30: Volume: [place] (ANES) 1000 00 1,000, mL Start date: [...] l Hydrochlori 11:42: Q24H, # 30 [place] de 150 MG 00 tab, 0 Extended Refill(s) Release Tablet 24 HR Yes 150 mg = 1 Memori a Bupropion 4-09 tab, PO, l Hydrochlori 11:42: Q24H, # 30 Marty de 150 MG 00 tab, 0 Extended Refill(s) Release Tablet 24 HR Yes 150 mg = 1 Memori a Bupropion 4-09 tab, PO, l Hydrochlori 11:42: Q24H, # 30 [place] de 150 MG 00 tab, 0 Extended Refill(s) Release Tablet 24 HR Yes 150 mg = 1 Memori a Bupropion 4- tab, PO, l Hydrochlori 11:42: Q24H, # 30 [place] de 150 MG 00 tab, 0 Extended Refill(s) Release Tablet 24 HR Yes 150 mg = 1 Memori a Bupropion 4-09 tab, PO, l Hydrochlori 11:42: Q24H, # 30 Marty de 150 MG 00 tab, 0 Extended Refill(s) Release Tablet 24 HR Yes 150 mg = 1 Memori a Bupropion 4-09 tab, PO, l Hydrochlori 11:42: Q24H, # 30 [place] de 150 MG 00 tab, 0 Extended Refill(s) Release Tablet apixaban 0 Yes 5 mg, PO, Me moria MG Oral 4- Q12H, tab, l Tablet 11:41: 0 [place] [Eliquis] 00 Refill(s), For Atrial Fibrilatio n apixaban 2020-0 Yes 5 mg, PO, Me moria MG Oral 4- Q12H, tab, l Tablet 11:41: 0 [place] [Eliquis] 00 Refill(s), For Atrial Fibrilatio n apixaban 2020-0 Yes 5 mg, PO, Me moria MG Oral 4- Q12H, tab, l Tablet 11:41: 0 Marty [Eliquis] 00 Refill(s), For Atrial Fibrilatio n apixaban 5 2020-0 Yes 5 mg, PO, Me moria MG Oral 4-09 Q12H, tab, l Tablet 11:41: 0 [place] [Eliquis] 00 Refill(s), For Atrial Fibrilatio n [...] Q12H, tab, l Tablet 11:41: 0 [place] [Eliquis] 00 Refill(s), For Atrial Fibrilatio n [...] PO, l tablet 11:38: Daily, # [place] 00 90 tab, 3 Refill(s) AMIODarone 2020-0 Yes 200 mg = 1 M emoria 200 mg oral 4-09 tab, PO, l tablet 11:38: Daily, # [place] 00 90 tab, 3 Refill(s) AMIODarone 2020-0 Yes 200 mg = 1 M emoria 200 mg oral 4-09 tab, PO, l tablet 11:38: Daily, # [place] 90 tab, 3 Refill(s) AMIODarone Yes 200 [...] 2 it y of mg tablet 08:18: ([facility]) [place] 30 times Medical daily. Branch amiodarone [...] daily. [place] tablet 41 Medical Branch lisinopril 2020- Yes 40mg Take 40 mg U nivers [...] Immunizations Ordered Filled Immunization Date Status Comments [facility] e Immunization Name Name [facility] COVID-19 2020-07-23 Completed [facility] MRNA VACCINATION 00:00:00 Hospital PFIZER COVID-19 2020-07-02 Completed Jain MRNA VACCINATION 00:00:00 [facility] Influenza Virus 2017-03-08 Completed Universit y of Vaccine 00:00:00 [facility] Influenza Virus 2017-03-08 Completed Universit y of Vaccine 00:00:00 [facility] Influenza Virus 2017-03-08 Completed Universit y of Vaccine 00:00:00 [facility] Influenza Virus 2017-03-08 Completed Universit y of Vaccine 00:00:00 [facility] Influenza Virus 2014-01-30 Completed Universit y of Vaccine (3+ yrs) 00:00:00 [facility] Pneumococcal 13 2014-01-30 Completed Universit y of Conjugate, PCV13 00:00:00 [facility] (Prevnar 13) [place] Influenza Virus 2014-01-30 Completed Universit y of Vaccine (3+ yrs) 00:00:00 [facility] Pneumococcal 13 2014-01-30 Completed Universit y of Conjugate, PCV13 00:00:00 [facility] dical (Prevnar 13) Branch Influenza Virus 2014-01-30 Completed Universit y of Vaccine (3+ yrs) 00:00:00 [facility] Branch Pneumococcal 13 2014-01-30 Completed Universit y of Conjugate, PCV13 00:00:00 [facility] dical (Prevnar 13) Branch Influenza Virus 2014-01-30 Completed Universit y of Vaccine (3+ yrs) 00:00:00 [facility] Pneumococcal 13 2014-01-30 Completed Universit y of Conjugate, PCV13 00:00:00 [facility] dical (Prevnar 13) Branch Pneumococcal 2012-02-16 Completed University o f Polysaccharide, 00:00:00 [facility] ical PPSV23 (PNEUMOVAX) Branch Influenza Virus 2012-02-16 Completed Universit y of Vaccine 00:00:00 [facility] PPD (TB) 2012-02-16 Completed University of 00:00:00 [facility] Pneumococcal 2012-02-16 Completed University o f Polysaccharide, 00:00:00 [facility] ical PPSV23 (PNEUMOVAX) Branch Influenza Virus 2012-02-16 Completed Universit y of Vaccine 00:00:00 [facility] PPD (TB) 2012-02-16 Completed University of 00:00:00 [facility] Pneumococcal 2012-02-16 Completed University o f Polysaccharide, 00:00:00 [facility] ical PPSV23 (PNEUMOVAX) Branch Influenza Virus 2012-02-16 Completed Universit y of Vaccine 00:00:00 [facility] PPD (TB) 2012-02-16 Completed University of 00:00:00 [facility] Pneumococcal 2012-02-16 Completed University o f Polysaccharide, 00:00:00 [facility] ical PPSV23 (PNEUMOVAX) [place] Influenza Virus 2012-02-16 Completed Universit y of [...] of VACCINE 00:00:00 [facility] PPD (TB) 2010-11-18 Completed University of 00:00:00 [facility] TDAP (ADACEL) 2010-11-18 Completed University of VACCINE 00:00:00 [facility] PPD (TB) 2010-11-18 Completed University of 00:00:00 [facility] TDAP (ADACEL) 2010-11-18 Completed University of VACCINE 00:00:00 [facility] PPD (TB) [...] 00:00:00 [place] [facility] Pneumococcal 2001-10-04 Completed [place] o f Polysaccharide, 00:00:00 [place] [facility] ical PPSV23 (PNEUMOVAX) Branch PPD (TB) 2001-10-04 Completed University 00:00:00 [facility] Vital Signs Vital Name Observation Time Observation Value Comments Source Systolic blood 2021-12-13 06:39:53 170 mm[Hg] Univer sity of pressure [facility] Diastolic blood 2021-12-13 06:39:53 96 mm[Hg] Unive rsity of pressure [facility] Heart rate 2021-12-13 06:39:53 60 /min Universi ty of [facility] Respiratory rate 2021-12-13 06:39:53 18 /min Univ ersity of [facility] Oxygen saturation in 2021-12-13 06:39:53 98 /min University Arterial blood by [facility] Pulse oximetry Branch Body temperature 2021-12-13 04:57:00 36.56 Amina Univ ersity of [facility] Body height 2021-12-13 04:57:00 162.6 cm Universi ty of [place] [facility] [place] Body weight 2021-12-13 04:57:00 90.719 kg Universi ty of [facility] BMI 2021-12-13 04:57:00 34.33 kg/m2 Universi ty of [facility] Systolic blood 2021-08-21 13:13:00 191 mm[Hg] Univer sity of pressure [facility] Diastolic blood 2021-08-21 13:13:00 99 mm[Hg] Unive rsity of pressure [facility] Heart rate 2021-08-21 13:13:00 52 /min Universi ty of [facility] Body temperature 2021-08-21 13:11:00 36.5 Amina Univ ersity of [facility] Respiratory rate 2021-08-21 13:11:00 16 /min Univ ersity of [facility] Body height 2021-08-21 13:11:00 162.6 cm Universi ty of [place] [facility] [place] Body weight 2021-08-21 13:11:00 93.759 kg Universi ty of [place] [facility] BMI 2021-08-21 13:11:00 35.48 kg/m2 Universi ty of [facility] Oxygen saturation in 2021-08-21 13:11:00 95 /min University of Arterial blood by [facility] Pulse oximetry Branch Systolic blood 2021-07-14 15:18:00 142 mm[facility]Hg[facility] Diastolic blood 2021-07-14 15:18:00 76 mm[Hg] [facility] Heart rate 2021-07-14 15:18:00 61 [facility] height 2021-07-14 15:18:00 [facility]6 [facility] Body weight 2021-07-14 15:18:00 [facility]802 [facility] BMI 2021-07-14 15:18:00 35.87 kg/m2 [facility] Systolic blood 2020-12-08 15:48:00 125 mm[Hg] [facility] pressure Diastolic blood 2020-12-08 15:48:00 76 mm[Hg] [facility] pressure Heart rate 2020-12-08 15:48:00 64 /min [facility] Body temperature 2020-12-08 15:48:00 36.61 Amina [facility] Respiratory rate 2020-12-08 15:48:00 17 /min [facility] Body height 2020-12-08 15:48:00 162.6 cm [facility] Body weight 2020-12-08 15:48:00 98.884 kg [facility] BMI 2020-12-08 15:48:00 37.42 kg/m2 [facility] Oxygen saturation in 2020-12-08 15:48:00 97 /min [facility] Arterial blood by Pulse oximetry Respitory Rate [...] Marty Respitory Rate 2020-08-30 10:00:00 Memori al [place] Systolic (mm Hg) 2020-08-30 10:00:00 Caesar cheung [place] Diastolic (mm Hg) 2020-08-30 10:00:00 Mem orial [place] Temperature Oral (F) 2020-08-30 00:00:00 96.9 F [facility] [place] Temperature Oral (F) 2020-08-29 11:26:00 97.6 F [facility] [place] Height 2020-08-29 10:30:00 162.56 [facility] 2020-08-29 10:30:00 [facility] [place] BMI Calculated 2020-08-29 10:30:00 [place] Procedures Procedure Date / Time Performing Clinician Source Performed MEDICATION CORRESPONDENCE 2021-12-25 05:01:00 Doctor Unassigned, [facility] [place] [facility] CT CERVICAL SPINE WO 2021-12-13 05:48:16 Bill Guo Kier[facility] CONTRAST [facility] CT HEAD WO CONTRAST 2021-12-13 05:48:16 Bill Guo [facility] CT LUMBAR SPINE WO 2021-12-13 05:48:16 Bill uGo [facility] CONTRAST [facility] CT THORACIC SPINE WO 2021-12-13 05:48:16 Bill Guo [facility] CONTRAST [facility] ECG 12-LEAD 2021-07-14 15:14:00 Elan Lira [facility] [id number] 2021-06-17 00:00:00 RIKY Lee [facility] GASTROINTESTINAL PANEL 2020-12-08 22:21:00 Eliseo Arce [facility] XR ABDOMEN 1 VW 2020-12-08 18:06:32 Eliseo Arce spital OR [place] < 1 HOUR 2020-09-05 22:39:00 Eliseo Arce spital SURGICAL PATHOLOGY REQUEST 2020-09-05 21:54:00 Eliseo Arce [facility] XR CHEST 1 VW PORTABLE 2020-09-05 19:55:00 Eliseo Arce [facility] DISCHARGE PATIENT 2020-09-05 17:27:55 Lucas Harris [facility] MO AN ELECTIVE 2020-09-05 16:47:23 Kirit Flood [facility] ENDOTRACHEAL AIRWAY EGD, INTRAOPERATIVE 2020-09-05 16:27:00 Eliseo Arce [facility] PARTIAL THROMBOPLASTIN 2020-09-05 15:04:00 [facility] TIME (PTT) M. PROTHROMBIN TIME WITH INR 2020-09-05 15:04:00 Mindy Maharaj [facility] M. Plan of Care Planned Activity Planned Date Details Comments Source Future Scheduled 2021-08-26 Screening for [facility] Test 13:02:23 malignant neoplasm of cervix (procedure) [code = 725067425] Future Scheduled 2021-08-26 BREAST CANCER [facility] Test 13:02:23 SCREENING [code = BREAST CANCER SCREENING] Future Scheduled 2021-08-26 COLONOSCOPY SCREENING [facility] Test 13:02:23 [code = COLONOSCOPY SCREENING] Future Scheduled 2021-08-26 Screening for [facility] Test 13:02:23 malignant neoplasm of lung (procedure) [code = 842751179] Future Scheduled 2021-08-26 SHINGLES VACCINES (#1) [facility] Test 13:02:23 [code = SHINGLES VACCINES (#1)] Future Scheduled 2021-08-26 COVID-19 VACCINE (3 - [facility] Test 13:02:23 Pfizer risk 4-dose series) [code = COVID-19 VACCINE (3 - Pfizer risk 4-dose series)] Future Scheduled 2021-08-26 65+ PNEUMOCOCCAL [facility] Test 13:02:23 VACCINE (4 of 4 - PPSV23) [code = 65+ PNEUMOCOCCAL VACCINE (4 of 4 - PPSV23)] Future Scheduled 2021-08-26 INFLUENZA VACCINE [facility] Test 13:02:23 [code = INFLUENZA VACCINE] Encounters Start End Encounter Admission Attending Care Care Encounter Source Date/Time Date/Time Type Type Clinicians Facility Department ID 2021-11-16 Outpatient [facility] [id number] [place] 10:32:47 [id number] [facility] 2021-08-03 Inpatient [facility] [id number] [facility] 11:30:00 Mike [id number] [facility] 2021-07-14 Outpatient PANKAJ [facility] [id number] [place] 09:33:51 [facility] 2021-06-16 Inpatient WINTER Leal OUTD [id number] [facility] 08:30:00 Mike [id number] [facility] 2021-06-15 Inpatient WINTER Leal OUTD [id number] [facility] 10:30:00 Mike [id number] [facility] 2022-02-26 2022-02-26 Outpatient [facility] [id number] Univers 08:30:00 08:30:00 SANTIAGO [id number] [facility] 2022-02-26 2022-02-26 Outpatient [facility] [id number] Univers 08:30:00 08:30:00 SANTIAGO [facility] 2021-12-25 2021-12-25 Orders Doctor FERMIN [id number] Univers 00:00:00 00:00:00 Only Unassigned, JACKELINE [id number] ity of [place] [facility] 4.2.7.2.686 Yomi as [phone] [facility] 009 Branch 2021-12-12 2021-12-13 Emergency X Bill GUO [facility] ERT [id number] Univers 23:53:00 01:52:00 ity of [facility] 2021-12-12 2021-12-13 Emergency Bill Guo [facility] 1.2.840.114 [id number] Univers 23:53:00 01:52:00 Kiersten BULLOCK [id number] i ty of [place] [phone] [facility] 084 Branch 2021-11-20 2021-11-20 Men'[employer] [facility] UNIVERSIT 1.2.840.114 [id number] Univers 09:45:00 10:00:00 Visit Santiago Cardenas [facility] [id number] ity of [facility] 4.2.7.2.[place] [id number] [facility] 316 Branch 2021-11-20 2021-11-20 Outpatient R KEZIA [facility] [id number] Univers 09:45:00 09:45:00 SANTIAGO itcharlie [facility] 2021-11-20 2021-11-20 Outpatient [facility] [id number] Univers 09:45:00 09:45:00 [id number] itcharlie [facility] 2021-08-21 2021-08-21 Office FRANCO CardenasIT [id number] Univers 08:30:00 09:00:00 Visit Santiago [facility] [id number] i [facility] 4.2.7.2.[place] [phone] [address] Branch 2021-08-05 2021-08-05 Outpatient RAUL LundEDUARDOCL HCACL [id number] [facility] 05:24:00 05:24:00 Mike 31 [facility] 2021-08-05 2021-08-05 Outpatient EDUARDO LealCL OUTD [id number] [facility] 05:24:00 05:24:00 Mike [id number] [facility] 2021-07-14 2021-07-14 Office Pankaj, UTP 6400 1.2.840.114 [id number] [place] 08:45:00 09:34:[address] 350.1.13.58 Health 9.2.7.2.686 [id number] 1 2021-07-09 2021-07-09 Telephone Ap, UTP 6400 1.2.840.114 [id number] [place] 00:00:00 00:00:[address] 350.1.13.58 Health 9.2.7.2.686 [id number] 1 2021-06-17 2021-06-17 Inpatient RAUL Lund, HCACL INTE.02 [id number] [facility] 10:56:00 14:36:00 Mike [id number] [facility] 2021-06-17 2021-06-17 Inpatient RUAL Lund, HCACL INTE.02 [id number] [facility] 10:56:00 14:36:00 Mike 47 [facility] 2021-04-28 2021-04-28 Telephone Jailyn, 1.2.840.2 [id number] Methodi 00:00:00 00:00:[address] 3.430.2.7 Hospit a .3.576590 l .8 2021-03-31 2021-03-31 Orders [facility], 1.2.840.1 [id number] Methodi 00:00:00 00:00:00 Only Sarai Lieberman 29575.1.1 979 s t 3.430.2.7 Hospit a .3.444523 l .8 2021-03-24 2021-03-24 Telephone [facility], 1.2.840.0 [id number] Methodi 00:00:00 00:00:[address] 3.430.2.7 Hospit a .3.827858 l .8 2021-01-19 2021-01-19 Telephone [place], 1.2.840.1 [id number] 2100 [id number] Methodi 00:00:00 00:00:[address] 3.430.2.7 Hospit a .3.805300 l .8 2020-12-12 2020-12-12 Office Hematpour, [facility] 6400 1.2.840.114 [id number] 07:42:02 08:18:[address] 350.1.13.58 9.2.7.2.686 [id number] 1 2020-12-09 2020-12-09 Telephone [facility], 1.2.840.1 [id number] Methodi 00:00:00 00:00:00 Sarai Lieberman 13400.1.1 316 s t 3.430.2.7 Hospit a .3.370871 l .8 2020-12-08 2020-12-08 [facility], 1.2.840.1 [id number] 2100 [id number] Methodi 12:35:54 23:59:00 Encounter Ray [address]81.1.[address] 3.430.2.7 Hospit a .3.486938 l .8 2020-12-08 2020-12-08 Lab Jailyn, 1.2.840.1 [id number] Methodi 17:25:00 17:30:[address] 3.430.2.7 Hospit a .3.898640 l .8 2020-12-08 2020-12-08 Office Jailyn, 1.2.840.1 [id number] Methodi 10:30:00 11:39:56 Visit Ray 80050.1.[address] 3.430.2.7 Hospit a .3.146333 l .8 2020-12-08 2020-12-08 Travel 1.2.840.1 1.2.536.353 [id number] Methodi 00:00:00 00:00:[address] 3.430.2.7 0.2.7.3.698 Ho spita .3.323242 084.8 l .8 2020-12-02 2020-12-02 Men'S Golf Coach [facility] 1.2.840.114 [id number] 10:20:06 10:36:19 Visit HEALTH 350.1.13.10 [facility] 4.2.7.2.686 [id number] 2020-11-25 2020-11-25 Office MEGHA Beltran 1.2.840.114 [id number] 11:06:30 11:58:14 Visit Robbi Hairston [employer]OLOGICAL DRAFTER 350.1.13.10 [facility] 4.2.7.2.686 MATERNAL [id number] & CHILD [address] [place] [address] 2020-11-25 2020-11-25 [facility] 1.2.249.869 [id number] 00:00:00 00:00:00 [facility] 350.1.13.10 CLINICS 4.2.7.2.686 [id number] 2020-11-25 2020-11-25 Telephone [facility] 1.2.740.825 [id number] 00:00:00 00:00:00 Robbi Marika GEOLOGICAL DRAFTER 350.1.13.10 REGIONAL 4.2.7.2.686 MATERNAL [phone] & CHILD [address] [place] [address] 2020-11-14 2020-11-14 Abstract Rodas, 1.2.840.1 [id number] Methodi 00:00:00 00:00:[address] 3.430.2.7 Hospit a .3.049708 l .8 2020-11-14 2020-11-14 Telephone Rodas, 1.2.840.1 [id number] Methodi 00:00:00 00:00:[address] 3.430.2.7 Hospit a .3.129855 l .8 2020-11-07 2020-11-07 Telephone Diana [facility] 6400 1.2.840.114 [id number] 00:00:00 00:00:[address] 350.1.13.58 9.2.7.2.686 [id number] 1 2020-10-27 2020-10-27 Telephone Jailyn, 1.2.840.1 [id number] Methodi 00:00:00 00:00:[address] 3.430.2.7 Hospit a .3.632492 l .8 2020-10-24 2020-10-24 Telephone Rodas, 1.2.840.1 [id number] [id number] Methodi 00:00:00 00:00:[address] 3.430.2.7 Hospit a .3.599563 l .8 2020-10-06 2020-10-12 Telemedici Cadealeshia, 1.2.840.1 [id number] Methodi 15:30:00 00:08:46 ne Ray [address]341.1.[address] 3.430.2.7 Hospit a .3.942982 l .8 2020-09-30 2020-09-[address] [facility], 1.2.840.4 [id number] Methodi 00:00:00 00:00:[address] 3.430.2.7 Hospit a .3.611541 l .8 2020-09-21 2020-09-21 [facility] 1.2.840.1 1.2.115.640 [id number] Methodi 00:00:00 00:00:[address] 3.430.2.7 0.2.7.3.698 Ho spita .3.718568 084.8 l .8 2020-09-06 2020-09-06 [facility] 1.2.840.1 [id number] Methodi 17:42:30 23:59:[address] 3.430.2.7 Hospit a .3.682032 l .8 2020-09-06 2020-09-06 [facility], 1.2.840.1 [id number] Methodi 16:50:00 17:41:00 Encounter Ray [address]42.1.[address] 3.430.2.7 Hospit a .3.886804 l .8 2020-09-05 2020-09-05 [facility], 1.2.840.1 [id number] [id number] Methodi 09:17:00 19:45:00 Encounter Ray [address]91.1.[address] 3.430.2.7 Hospit a .3.921307 l .8 2020-09-05 2020-09-05 [facility], 1.2.840.1 [id number] Methodi 11:30:00 13:15:[address] 3.430.2.7 Hospit a .3.020530 l .8 2020-09-05 2020-09-05 Anesthesia [facility], 1.2.840.1 [id number] Methodi 11:27:00 12:20:00 Event Kirit 08035.1.1 243 s t V. 3.430.2.7 Hospit a .3.850596 l .8 2020-09-05 2020-09-05 Travel 1.2.840.1 1.2.645.250 [id number] Methodi 00:00:00 00:00:[address] 3.430.2.7 0.2.7.3.698 Ho spita .3.958876 084.8 l .8 2020-09-04 2020-09-04 Telephone [place], 1.2.840.1 [id number] Methodi 00:00:00 00:00:00 Sarai Lieberman 63774.1.1 762 s t 3.430.2.7 Hospit a .3.426155 l .8 2020-09-02 2020-09-02 Telephone Meisenbach, 1.2.840.6 [id number] Methodi 00:00:00 00:00:00 Sarai Lieberman 42805.1.1 344 s t 3.430.2.7 Hospit a .3.755896 l .8 2020-08-29 2020-08-30 [facility] [id number] 10:20:00 14:10:00 Outpatient [facility] 00 l [facility] 2020-08-29 2020-08-30 Outpatient [facility], [facility] CAR [address] [facility] 05:20:00 09:10:00 [place] Results Test Description Test Time Test Comments Results Result Comments Source Novel Coronavirus 2019 Inhouse 2021-08-03 18:08:00 Test Item Value Reference Range Interpretation Comme nts Novel Coronavirus 2019 Negative Negative Posit bruno results are indicative of the Inhouse (test code = presenc e uuHHSE-YgA-0 RNA, clinical COVNONPUI) correlation wit h patient [...] qualitative detection of nucleic acid s from vncLUSJ-IgO-5 virus and diagn osis of SARS-CoV-2 virusinfection. It is an Emergency Use Authorization ( EUA) testauthorized by the [place] FDA. BASIC METABOLIC DNSNL4959-20-08 09:37:00 Test Item Value Reference Range Interpretation [...] = 9.0 mg/dL 8.0-10.5 N CA) PROTHROMBIN [id number] 09:32:00 Test Item Value Reference Range Interpretation [...] (to prevent recurrent infar ct). 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 1955 Sex: F FAX: Carmenza Kelly DO [phone] [place]: St: ADM FAX: Mike Scales MD [phone] FAX: Bahman Chopra [phone] Name: LIO WATTS [facility] : 1955 Age/S: 66/F [address] [place] [address] Unit #: [id number] Loc: [place] [address] Phys: Bahman Chopra [facility] Acct: [id number] Dis Date: Status: ADM IN PHONE #: [phone] Exam Date: 06/17/2021 1320 FAX #: [phone] Reason: WATCHMAN EX AMS: CPT CODE: [id number] XR CHEST 1 V 42498 PROCEDURE INFORMATION: Exam: XR Chest Exam date [...] Faintly radiopaque atrial appendage occlusion device overlies theleft mediastinum. The pulmonary vasculature is indistinct. Bones/joints: Bilateral shoulder prostheses partially imaged. No acute skeletal abnormality. IMPRESSION: 1. Enlarged cardiac silhouette. Mild pulmonary vascular congestion may reflect component of congestive failure/volume loading. 2. Subsegmental atelectasis bilateral. at 1339 Reported and signed by: Lambert Vega M.D. CC: Lele Rahman DO; Mike Lund MD; Bahman Chopra Technologist: RT Taylor(R) Trnscrd Date/Time/By: 06/17/2021 (1338) : By: Susanna Orig Print D/T: S: 06/17/2021 (5814) PAGE 1 Signed ReportCOVID 19 Asymptomatic IH [id number] 12:29:00 Test Item Value Reference Range Interpretation [...] high or waivedcomplexit y tests. BASIC METABOLIC [id number] 11:37:00 Test Item Value Reference Range Interpretation [...] code = 9.0 mg/dL 8.0-10.5 N CA) VUYRPBWUNY4589-05-25 11:37:00 Test Item Value Reference Range Interpretation Comments PREALBUMIN (test code = PREALB) 24.3 mg/dL 16.0-40.0 N PROTHROMBIN [id number] 11:03:00 Test Item Value Reference Range Interpretation [...] (to prevent recurrent infar ct). CBC W/AUTO [id number] 10:59:00 Test Item Value Reference Range Interpretation [...] code = 0.00 x10 3/uL 0.0-0.1 N NR#) - XR CHEST 2 [id number] [facility]:00[facility]00 [facility] 1955 Sex: F FAX: Carmenza Kelly DO [phone] [place]: St: PRE FAX: Y Mike Lund MD [phone] Name: LIO WATTS [facility] : 1955 Age/S: 66/F [address] [place] [address] Unit #: [id number] Loc: [place], [place] [address]Vvmb: Mike Lund MD Acct: [id number] Dis Date: Status: PRE [facility] PHONE #: [phone] Exam Date: 06/16/2021 1120 FAX #: [phone] Reason: PREOP EXAMS: CPT CODE: [id number] XR CHEST 2 V 43877 PROCEDURE INFORMATION: Exam: XR Chest Exam date and time: 06/16/2021 10:52 AM Age: 66 years old Clinicalindication: Pre-operative exam; Respiratory screening exam; Additional info: [...] by: Selene Collins D.O. CC: Carmenza Rahman DO; Mike Lund MD Technologist: RT Andree(R) Trnscrd Date/Time/By: 06/16/2021 (7923) : By: [email or web address] Orig Print D/T: S: 06/16/2021 (6464) PAGE 1 Signed ReportGastrointestinal ohdzp0745-48-01 04:35:05 Test Item Value Reference Interpretation Comments [...] Rotavirus PCR (test Not Detected code = 4365183) Salmonella PCR (test Not Detected code = [...] PCR Not Detected (test code = 7124) [facility] eecrtux0892-35-24 19:30:47 Test Item Value Reference Range Interpretation Comments Case number (test [id number] code = 8214994) Surgical pathology See link below for PDF report (test code = Lab Report 2255) Result status (test This is Supplemental code = 3639962) Report for [id number] [facility]2021-04-09 16:31:00 Test Item Value Reference Range Interpretation Comments POC Activated Clotting Time (test code 153 s = POC Activated Clotting Time) [facility]PzbrsdiFPCNYROIFA7194-12-29 16:31:00 Test Item Value Reference Range Interpretation Comments POC Activated Clotting Time (test code 153 s = POC Activated Clotting Time) [facility]fieldIlnndfaALOUFQVDKO7116-13-27 16:31:00 Test Item Value Reference Range Interpretation Comments POC Activated Clotting Time (test code 153 s = POC Activated Clotting Time) [facility]fieldTztoyrjYOPRFMETUA6380-11-84 16:31:00 Test Item Value Reference Range Interpretation Comments POC Activated Clotting Time (test code 153 s = POC Activated Clotting Time) [facility]fieldFutxehpQVRJLIIJJR6940-50-15 16:31:00 Test Item Value Reference Range Interpretation Comments POC Activated Clotting Time (test code 153 s = POC Activated Clotting Time) [facility]fieldCymgnllOYDENHHTLQ4246-23-66 16:31:00 Test Item Value Reference Range Interpretation Comments POC Activated Clotting Time (test code 153 s = POC Activated Clotting Time) [facility]fieldIoanivgNXRKNTJEDB8771-03-03 16:31:00 Test Item Value Reference Range Interpretation Comments POC Activated Clotting Time (test code 153 s = POC Activated Clotting Time) [facility]fieldZdpoughZSUEHLQKYO6262-03-10 14:37:00 Test Item Value Reference Range Interpretation Comments POC Activated Clotting Time (test code 454 s = POC Activated Clotting Time) [facility]fieldRutdjhsLROBPHIKED5986-46-85 14:37:00 Test Item Value Reference Range Interpretation Comments POC Activated Clotting Time (test code 454 s = POC Activated Clotting Time) [place] [id number] 14:37:00 Test Item Value Reference Range Interpretation Comments POC Activated Clotting Time (test code 454 s = POC Activated Clotting Time) [facility]fieldOwdgjxrVEPLGSGBIE3697-85-90 14:37:00 Test Item Value Reference Range Interpretation Comments POC Activated Clotting Time (test code 454 s = POC Activated Clotting Time) [facility]fieldZbsuvxoCLBIDJKBXH3450-88-04 14:37:00 Test Item Value Reference Range Interpretation Comments POC Activated Clotting Time (test code 454 s = POC Activated Clotting Time) [facility]fieldKbtyzmmIDRCSVTBRF9474-59-60 14:37:00 Test Item Value Reference Range Interpretation Comments POC Activated Clotting Time (test code 454 s = POC Activated Clotting Time) [facility]fieldQkwwjhpEEXLULHGAX7218-40-17 14:37:00 Test Item Value Reference Range Interpretation Comments POC Activated Clotting Time (test code 454 s = POC Activated Clotting Time) [facility]fieldVlarxluXUJHJWJFFI7595-20-18 14:13:00 Test Item Value Reference Range Interpretation Comments POC Activated Clotting Time (test code 354 s = POC Activated Clotting Time) [facility]fieldTnbgyfvXCBBHSGAFK2810-39-38 14:13:00 Test Item Value Reference Range Interpretation Comments POC Activated Clotting Time (test code 354 s = POC Activated Clotting Time) [facility]fieldFhoqzmfVIVNSCXAPV4984-02-78 14:13:00 Test Item Value Reference Range Interpretation Comments POC Activated Clotting Time (test code 354 s = POC Activated Clotting Time) [facility]fieldVqetzyfIEJTZWLLVW3852-44-66 14:13:00 Test Item Value Reference Range Interpretation Comments POC Activated Clotting Time (test code 354 s = POC Activated Clotting Time) [facility]fieldSaezmfsTNCGIATZML4371-37-19 14:13:00 Test Item Value Reference Range Interpretation Comments POC Activated Clotting Time (test code 354 s = POC Activated Clotting Time) [facility]fieldGzwetvnZTQYWZHIJN4865-64-29 14:13:00 Test Item Value Reference Range Interpretation Comments POC Activated Clotting Time (test code 354 s = POC Activated Clotting Time) [facility]fieldLoexqacOZAOFQFPGM1321-43-93 14:13:00 Test Item Value Reference Range Interpretation Comments POC Activated Clotting Time (test code 354 s = POC Activated Clotting Time) [facility] BANK MBOBEQW1899-41-75 10:37:00Negative (08/29/20 5:37 AM) [facility] UVQOF2362[facility]-74 10:37:96305Mixlkeoz HermannCHEM PANEL 2020-08-29 10:37:0028[facility] HermannCHEM HRKWO8711-35-76 10:37:001.01[facility] HermannCHEM FELIR7460-70-41 10:37:71977Dsxgshgc HermannCHEM ZSBRO7634-56-74 10:37:003.8[facility] HermannCHEM XPQQQ2089-43-21 10:37:45785Jzebgbbs HermannCHEM XYLZC1717-81-94 10:37:0028[facility] HermannCHEM XKVUK8797-54-78 10:37:009.8 [facility] HermannCHEM DWCJK2774-20-49 10:37:0011.8[facility] HermannCHEM PANEL 2020-08-29 10:37:0059[facility] HermannCHEM SKPBR5103-37-02 10:37:002.9[facility] UnwecgsVCSABNGCLG9892-05-07 10:37:006.8[facility] CnqjkixNZIOIBFNFB5163-56-89 10:37:004.47[facility] BthqylbDTFXZVXMMT7902-47-10 10:37:0010.6[facility] GUOJTJKZLY1448-19-97 10:37:0034.0[facility] ItahuubICIWFGEFTB5321-00-78 10:37:00 76.1[facility] GgneqkhIJSJEAIBXV9531-84-31 10:37:00 Test Item Value Reference Range Interpretation Comments MCH (test code = MCH) 23.8 pg 27.0-31.0 [facility] ZmsntuvIBHJXOXKSX1495-76-02 10:37:0031.3[facility] HermannHEMATOLOGY 2020-08-29 10:37:0018.2[facility] HahebjlRHXOXQTJXY9719-64-02 10:37:07596Neypcyyy DuzvawgQDJOMKMOMG4587-02-31 10:37:007.5[facility] KhlxajyKIJTAQYMWX8942-50-60 10:37:00 Test Item Value Reference Range Interpretation Comments PT (test code = PT) 12.8 s 12.0-14.7 [facility] AayztrrGFASRICPQL5834-67-15 10:37:00 Test Item Value Reference Range Interpretation Comments INR (test code = INR) 0.97 1 0.85-1.17 [facility] XtsyklpZAQJIRCXKV1182-82-24 10:37:00 Test Item Value Reference Range Interpretation Comments PTT (test code = PTT) 25.0 s 22.9-35.8 [facility] CecgaryCOQJMVOQBP5944-75-40 10:37:0070.5[facility] HermannHEMATOLOGY 2020-08-29 10:37:0018.8[facility] UngbdyjXOIOESEAWY4204-63-98 10:37:009.5[facility] FpzubfjSCHUGVETKM2492-73-43 10:37:000.9[facility] XzqfhtqEUCRXTFCUS4653-60-70 10:37:000.3[facility] KwiftscJOZQUAXLKI4593-28-84 10:37:004.8[facility] CTTXAOQORX8726-08-12 10:37:001.3[facility] YydaohuDOADNCGWZZ1202-31-20 10:37:000.6 [facility] UagszcaTFPAZEZGNT2819-49-01 10:37:000.1[facility] HermannHEMATOLOGY 2020-08-29 10:37:001+ *ABN*(08/29/20 5:37 AM)[facility] GddhnaaRCUWFNSOYX8118-14-57 10:37:00Not Detected (08/29/20 5:37 AM)[facility] HermannBLOOD BANK RESULTS 2020-08-29 10:37:00Negative (08/29/20 5:37 AM)[facility] HermannCHEM MGDEY4580-50-35 10:37:05495Cljmglui HermannCHEM BALSA3096-98-81 10:37:0028[facility] HermannCHEM HYSNC8084-63-16 10:37:001.01[facility] HermannCHEM UOCYY9393-97-48 10:37:82446 [facility] HermannCHEM OZKEH4932-34-86 10:37:003.8[facility] HermannCHEM PANEL 2020-08-29 10:37:37248Smdkbwih HermannCHEM KOFHG8934-93-36 10:37:0028[facility] HermannCHEM UOVJC4137-76-40 10:37:009.8[facility] HermannCHEM GZALJ6938-56-75 10:37:0011.8[facility] HermannCHEM DGFPH4210-93-43 10:37:0059[facility] HermannCHEM FLLTX0014-15-86 10:37:002.9[facility] IfoxxraGOCHKPSOOA0396-64-58 10:37:006.8 [facility] QidikxuSRDOKUSMCC6952-59-74 10:37:004.47[facility] HermannHEMATOLOGY 2020-08-29 10:37:0010.6[facility] MngmbvwIEFAROFWCY8206-85-28 10:37:0034.0[facility] JnkijkvEUBQIHMBFF9185-44-53 10:37:0076.1[facility] FzjjvpmCFOTPCBDSV7025-30-80 10:37:00 Test Item Value Reference Range Interpretation Comments MCH (test code = MCH) 23.8 pg 27.0-31.0 [facility] CozixuwPGHUGVQOKV1847-73-52 10:37:0031.3[facility] HermannHEMATOLOGY 2020-08-29 10:37:0018.2[facility] PyqhpijNHZJLCNOHG6385-23-51 10:37:11703Nzrvnybo HvmyanwMRFMZRQMLZ7935-37-59 10:37:007.5[facility] TufqpxgXXTDYPXKIU2074-82-31 10:37:00 Test Item Value Reference Range Interpretation Comments PT (test code = PT) 12.8 s 12.0-14.7 [facility] PksxctjYEBOZIFJOI6750-93-18 10:37:00 Test Item Value Reference Range Interpretation Comments INR (test code = INR) 0.97 1 0.85-1.17 [facility] RokbdhlNAVTFZTVKB6406-16-43 10:37:00 Test Item Value Reference Range Interpretation Comments PTT (test code = PTT) 25.0 s 22.9-35.8 [facility] ElwlbkhJNFCDUCOSK6746-90-32 10:37:0070.5[facility] HermannHEMATOLOGY 2020-08-29 10:37:0018.8[facility] BnougdqXNXIFJBDBG0612-33-28 10:37:009.5[facility] EvmcvpyZOVCVYXKFX3760-35-35 10:37:000.9[facility] DmdrepyCVWLLCHTFM9698-82-80 10:37:000.3[facility] YgrprbvOGVNVHGBNH7218-08-47 10:37:004.8[facility] PVBTCDWEDH9418-50-39 10:37:001.3[facility] BagkryoOBMVQWQBDE9490-58-85 10:37:000.6 [facility] PxzhdohHZTPVVJEJT4932-03-69 10:37:000.1[facility] HermannHEMATOLOGY 2020-08-29 10:37:001+ *ABN*(08/29/20 5:37 AM)[facility] NhxxxfmPYZPUAUCSJ3842-28-47 10:37:00Not Detected (08/29/20 5:37 AM)[facility] HermannBLOOD BANK RESULTS 2020-08-29 10:37:00Negative (08/29/20 5:37 AM)[facility] HermannCHEM SCCVQ2034-42-44 10:37:15366Extjjzoj HermannCHEM IZYNS9134-67-20 10:37:0028[facility] HermannCHEM KACPM5939-79-75 10:37:001.01[facility] HermannCHEM HVRGY4613-96-66 10:37:87466 [facility] HermannCHEM NPGED4284-54-83 10:37:003.8[facility] HermannCHEM PANEL 2020-08-29 10:37:76357Sqkqaeoc HermannCHEM EPRVL3184-66-70 10:37:0028[facility] HermannCHEM CEDRS1042-27-68 10:37:009.8[facility] HermannCHEM GMUGR5822-23-42 10:37:0011.8[facility] HermannCHEM GHLJG4081-26-50 10:37:0059[facility] HermannCHEM HCBSA2404-29-71 10:37:002.9[facility] BtgrrwtCDYAVDQHMK7484-55-97 10:37:006.8 [facility] YydleepIGYRGRBYPO7220-88-98 10:37:004.47[facility] HermannHEMATOLOGY 2020-08-29 10:37:0010.6[facility] CilmibdPRSUXFVTHN4347-50-81 10:37:0034.0[facility] PdzmwhxTLATXOVUKN6922-07-26 10:37:0076.1[facility] UpkmlkbQCVAVOUSXG0271-87-62 10:37:00 Test Item Value Reference Range Interpretation Comments MCH (test code = MCH) 23.8 pg 27.0-31.0 [facility] UvomwmaJVOYXGZCZP5747-03-70 10:37:0031.3[facility] HermannHEMATOLOGY 2020-08-29 10:37:0018.2[facility] QyqglamJGUXIZTARG5157-53-40 10:37:99172Sgrwhung UpqvvjkNTGGDHPNWE3333-11-58 10:37:007.5[facility] XiqblkaTKHJSKTSDV5094-68-33 10:37:00 Test Item Value Reference Range Interpretation Comments PT (test code = PT) 12.8 s 12.0-14.7 [facility] RsucppwBWRTKYCPPH4101-74-28 10:37:00 Test Item Value Reference Range Interpretation Comments INR (test code = INR) 0.97 1 0.85-1.17 [facility] ErfjusyOSYJPMGRHV1176-39-85 10:37:00 Test Item Value Reference Range Interpretation Comments PTT (test code = PTT) 25.0 s 22.9-35.8 [facility] IakavyjPAKXWGQPWR3865-48-50 10:37:0070.5[facility] HermannHEMATOLOGY 2020-08-29 10:37:0018.8[facility] FxiflaaHYAQZQDCAU9245-47-93 10:37:009.5[facility] TekboamYRCSZQWHQU1617-12-80 10:37:000.9[facility] LvxrrvzANFFDEQAKS3672-64-06 10:37:000.3[facility] DbdltdaRJMAMVNFIF6864-79-12 10:37:004.8[facility] GDTMBKNUHI7223-31-73 10:37:001.3[facility] GjiyvlhLKMPEDNVZV3810-01-59 10:37:000.6 [facility] HfjzvlmOUGQIBIZYN9723-39-39 10:37:000.1[facility] HermannHEMATOLOGY 2020-08-29 10:37:001+ *ABN*(08/29/20 5:37 AM)[facility] HrbukpcILFHLSVYEM0985-20-37 10:37:00Not Detected (08/29/20 5:37 AM)[facility] HermannBLOOD BANK RESULTS 2020-08-29 10:37:00Negative (08/29/20 5:37 AM)[facility] HermannCHEM IGJVV1752-30-12 10:37:16832Dbdqzbdf HermannCHEM DZILE0142-60-61 10:37:0028[facility] HermannCHEM JSRDN4661-98-43 10:37:001.01[facility] HermannCHEM HVJJM0675-49-71 10:37:61871 [facility]annCHEM BQCMZ3352-69-94 10:37:003.8[facility] HermannCHEM PANEL 2020-08-29 10:37:56786Tgttkreb HermannCHEM XATJY3471-18-27 10:37:0028[facility] HermannCHEM YNTSE5113-40-47 10:37:009.8[facility] HermannCHEM MLLQJ5983-14-09 10:37:0011.8[facility] HermannCHEM UAYNE3836-24-82 10:37:0059[facility] HermannCHEM TMMEQ6715-39-74 10:37:002.9[facility] GakaojxYUGQKMBPRN2163-29-38 10:37:006.8 [facility] XlohllcZMLMRGPNTI6174-90-09 10:37:004.47[facility] HermannHEMATOLOGY 2020-08-29 10:37:0010.6[facility] LgjzwmiYBNFMHGEBM9462-39-42 10:37:0034.0[facility] EyvqdkuNWUWOGXJRW6063-46-73 10:37:0076.1[facility] SgchimoLNAKRZINUP3088-37-20 10:37:00 Test Item Value Reference Range Interpretation Comments MCH (test code = MCH) 23.8 pg 27.0-31.0 [facility] HgrywpvLHCNERPNSX2617-56-78 10:37:0031.3[facility] HermannHEMATOLOGY 2020-08-29 10:37:0018.2[facility] NvfleokHPRMVNXGWF9303-90-26 10:37:19249Nctjilsm YeslifpJDWHUQGWSO8251-38-36 10:37:007.5[facility] SbfvduyGRKOBPYWGT7377-68-46 10:37:00 Test Item Value Reference Range Interpretation Comments PT (test code = PT) 12.8 s 12.0-14.7 [facility] ModplqeGFYCAEBEAN2882-79-46 10:37:00 Test Item Value Reference Range Interpretation Comments INR (test code = INR) 0.97 1 0.85-1.17 [facility] BzcycmiKGLEXZELRU9785-63-11 10:37:00 Test Item Value Reference Range Interpretation Comments PTT (test code = PTT) 25.0 s 22.9-35.8 [facility] UqkxkjaDDVZLFUOAB6729-23-49 10:37:0070.5[facility] HermannHEMATOLOGY 2020-08-29 10:37:0018.8[facility] SmsglxlZWRGDYHAMF0873-52-57 10:37:009.5[facility] EioxmocKTLANKBRNE7176-50-21 10:37:000.9[facility] NugcwrrKGQIAWZTCP7680-85-81 10:37:000.3[facility] OfvqvnsIGXXYSWKRC0309-56-58 10:37:004.8[facility] TETOGIJKTF8565-85-50 10:37:001.3[facility] GvgdtapBKNCUOGAKL1487-42-31 10:37:000.6 [facility] BdgfsfmADXBPPSJCM3642-48-12 10:37:000.1[facility] HermannHEMATOLOGY 2020-08-29 10:37:001+ *ABN*(08/29/20 5:37 AM)[facility] UqzbfqqFLFDZCFKZI6792-61-94 10:37:00Not Detected (08/29/20 5:37 AM)[facility] HermannBLOOD BANK RESULTS 2020-08-29 10:37:00Negative (08/29/20 5:37 AM)[facility] HermannCHEM EMHHQ5288-59-17 10:37:64325Tfivqfaq HermannCHEM IODNG6934-49-24 10:37:0028[facility] HermannCHEM MGJBJ6176-24-86 10:37:001.01[facility] HermannCHEM MGETH1503-03-81 10:37:29267 [facility] HermannCHEM CUBJY1680-20-06 10:37:003.8[facility] HermannCHEM PANEL 2020-08-29 10:37:79167Oyyygptx HermannCHEM ODJSE1144-18-33 10:37:0028[facility] HermannCHEM NBDMP5995-17-10 10:37:009.8[facility] HermannCHEM RJYQD4720-77-92 10:37:0011.8[facility] HermannCHEM MQEEO8379-33-97 10:37:0059[facility] HermannCHEM KDDHN2397-13-46 10:37:002.9[facility] CfrjwbhKWKKQJFLJH6706-82-28 10:37:006.8 [facility] JfpudrhKIYDKTTSXJ1936-44-59 10:37:004.47[facility] HermannHEMATOLOGY 2020-08-29 10:37:0010.6[facility] PxleioqXZCHWNQDRF0867-56-53 10:37:0034.0[facility] VsydbpxSSQRSUHGWR8421-81-48 10:37:0076.1[facility] EnzabcuQLRAMTNSGT1124-26-36 10:37:00 Test Item Value Reference Range Interpretation Comments MCH (test code = MCH) 23.8 pg 27.0-31.0 [facility] HukdpkxIJVHJIACTA9738-36-52 10:37:0031.3[facility] HermannHEMATOLOGY 2020-08-29 10:37:0018.2[facility] XadkzyfIVIGASMQUW3413-90-83 10:37:39115Ngzhbtny EuyuwomDVXJFKUGOG4993-30-41 10:37:007.5[facility] PsaclffVMCETZEAYN1028-73-80 10:37:00 Test Item Value Reference Range Interpretation Comments PT (test code = PT) 12.8 s 12.0-14.7 [facility] QicfansDOTLHJORUL7387-21-19 10:37:00 Test Item Value Reference Range Interpretation Comments INR (test code = INR) 0.97 1 0.85-1.17 [facility] WalhrokQEDJYVBKPX8197-59-06 10:37:00 Test Item Value Reference Range Interpretation Comments PTT (test code = PTT) 25.0 s 22.9-35.8 [facility] MhmlpolAIWDIBAZQE9880-63-10 10:37:0070.5[facility] HermannHEMATOLOGY 2020-08-29 10:37:0018.8[facility] HfxqrcjBRNGEYFLJP0302-88-58 10:37:009.5[facility] OcrkujfHBURYGFYZT7036-26-65 10:37:000.9[facility] NzgxdsvTBITMHKSAU1987-51-57 10:37:000.3[facility] ZgrfgsdZEVWSYYNAA7210-04-19 10:37:004.8[facility] NKMOOORZKV8120-58-65 10:37:001.3[facility] FawyokoFCXCLYGJGV1334-22-90 10:37:000.6 [facility] TpbyywqZWQACWSUJP1912-41-46 10:37:000.1[facility] HermannHEMATOLOGY 2020-08-29 10:37:001+ *ABN*(08/29/20 5:37 AM)[facility] CgkiujoLZDWOATARG8249-18-00 10:37:00Not Detected (08/29/20 5:37 AM)[facility] HermannBLOOD BANK RESULTS 2020-08-29 10:37:00Negative (08/29/20 5:37 AM)[facility] HermannCHEM FQRQT5005-97-23 10:37:08505Poinftzv HermannCHEM ARWHD0738-99-60 10:37:0028[facility] HermannCHEM MXVKX7933-01-10 10:37:001.01[facility] HermannCHEM NMORM8736-07-74 10:37:74015 [facility] HermannCHEM ZMJWV0658-16-99 10:37:003.8[facility] HermannCHEM PANEL 2020-08-29 10:37:78239Ugsfuihp HermannCHEM XDIYA5942-84-91 10:37:0028[facility] HermannCHEM KANSK2411-72-83 10:37:009.8[facility] HermannCHEM EHVIQ5369-55-50 10:37:0011.8[facility] HermannCHEM FIYQW6985-04-81 10:37:0059[facility] HermannCHEM CQSZY9486-06-44 10:37:002.9[facility] IsxkxwfOSOGKSNYIU3414-15-08 10:37:006.8 [facility] MmggqkbDDBMPGXSNC6723-86-50 10:37:004.47[facility] HermannHEMATOLOGY 2020-08-29 10:37:0010.6[facility] FetqshyTVOGQAXFBW9486-29-40 10:37:0034.0[facility] TjqzaocOKWDDWQVEG5213-23-80 10:37:0076.1[facility] TxiefaqISWERDKXBW7199-97-33 10:37:00 Test Item Value Reference Range Interpretation Comments MCH (test code = MCH) 23.8 pg 27.0-31.0 [facility] BchsyogYNMZOLGLGG9579-12-82 10:37:0031.3[facility] HermannHEMATOLOGY 2020-08-29 10:37:0018.2[facility] LhnoivaWLCMDNEZSF5489-11-44 10:37:06128Tjfybvsi BbtsrtbCXUUHUJMHR1630-22-51 10:37:007.5[facility] XgykpmuZLGYEVZBZP8698-95-19 10:37:00 Test Item Value Reference Range Interpretation Comments PT (test code = PT) 12.8 s 12.0-14.7 [facility] EbxmrqsUZEWVUHXCY5630-32-56 10:37:00 Test Item Value Reference Range Interpretation Comments INR (test code = INR) 0.97 1 0.85-1.17 [facility] RnsbvklJRFBLHBVQG9544-45-22 10:37:00 Test Item Value Reference Range Interpretation Comments PTT (test code = PTT) 25.0 s 22.9-35.8 [facility] GbxxobtXULNIAFFAC8719-81-97 10:37:0070.5[facility]annHEMATOLOGY 2020-08-29 10:37:0018.8[facility] UbstetoKACRRAVELI0000-12-64 10:37:009.5[facility] RxdibjbJINXRSFYQB5938-66-09 10:37:000.9[facility] WvewigmFCVGMTQQJG5737-67-58 10:37:000.3[facility] OnryebhKVDWNQUXVY0235-81-78 10:37:004.8[facility] ZJBTHCLVJJ8935-31-63 10:37:001.3[facility] EvkufljJHVCWAXNCB0273-50-94 10:37:000.6 [facility] BtbkzkkWGWEGIHZNP4160-58-00 10:37:000.1[facility]annHEMATOLOGY 2020-08-29 10:37:001+ *ABN*(08/29/20 5:37 AM)[facility] XmxcolzRNGWLMCTWS3698-77-06 10:37:00Not Detected (08/29/20 5:37 AM)[facility] HermannBLOOD BANK RESULTS 2020-08-29 10:37:00Negative (08/29/20 5:37 AM)[facility]annCHEM TRIRO7829-38-93 10:37:50880Kwykyllm HermannCHEM NCCXB2441-72-80 10:37:0028[facility]annCHEM JDMAM6948-64-50 10:37:001.01[facility]annCHEM DYWKK7880-07-81 10:37:50248 [facility]annCHEM ESZHU6990-92-32 10:37:003.8[facility] HermannCHEM PANEL 2020-08-29 10:37:38308Inkaaona HermannCHEM VSPSM3810-53-60 10:37:0028[facility]annCHEM YREFD6759-66-30 10:37:009.8[facility] HermannCHEM ZSFQS4863-04-99 10:37:0011.8[facility] HermannCHEM EELJP3034-25-04 10:37:0059[facility]annCHEM HRZWB2669-73-85 10:37:002.9[facility] WbmxkgeNJFHZNQRCN3604-28-21 10:37:006.8 [facility] EnszpjaYDBPEKYTDV7086-45-46 10:37:004.47[facility]annHEMATOLOGY 2020-08-29 10:37:0010.6[facility] TthwghlCRIICRSBLE0225-98-95 10:37:0034.0[facility] InufrvmKQVKIPFJLK6627-28-83 10:37:0076.1[facility] BqkqxnqISXEBWVSSR1860-42-25 10:37:00 Test Item Value Reference Range Interpretation Comments MCH (test code = MCH) 23.8 pg 27.0-31.0 [facility] UsfhsxsDZBSLCDUNZ5208-86-18 10:37:0031.3[facility]annHEMATOLOGY 2020-08-29 10:37:0018.2[facility] QoddpigXIEBTKMJFD5205-25-20 10:37:97368[place] JusyjdpVWKXKZTRGP6315-09-89 10:37:007.5[facility] SkbxbhcMVYVDRTGKU6367-70-04 10:37:00 Test Item Value Reference Range Interpretation Comments PT (test code = PT) 12.8 s 12.0-14.7 [facility] LohukqyDWYAFRRSDQ4959-92-43 10:37:00 Test Item Value Reference Range Interpretation Comments INR (test code = INR) 0.97 1 0.85-1.17 [facility] AgqzzgoKHMTDXQAHV9680-21-91 10:37:00 Test Item Value Reference Range Interpretation Comments PTT (test code = PTT) 25.0 s 22.9-35.8 [facility] LmlylmmKXXPMQHWSX7068-19-74 10:37:0070.5[facility]annHEMATOLOGY 2020-08-29 10:37:0018.8[facility] QtnyrtsSQBTVMRRRG8406-33-22 10:37:009.5[facility] TdvsersFPXTVGTJJZ2370-51-87 10:37:000.9[facility] OfazzqcHMRFZOMWDK5579-17-93 10:37:000.3[facility] UcdkwonLFOTUCUQRB0697-04-30 10:37:004.8[facility] OVXQMAZGGI0367-45-69 10:37:001.3[facility] RctateiBSOHVNKHTM7762-70-30 10:37:000.6 [facility] LyavlznLLCYUTXVQP7400-60-03 10:37:000.1[facility]annHEMATOLOGY 2020-08-29 10:37:001+ *ABN*(08/29/20 5:37 AM)[facility] QsbwriaFJPFSBBCUA1338-02-51 10:37:00Not Detected (08/29/20 5:37 AM)[facility] TylerAMYDIA, GC, TV,PCR, IN [id number] 15:38:00 Test Item Value Reference Range Interpretation Comments FT (test code = CHTR) Not detected (qualifier Not Detected N value) FT (test code = Not detected (qualifier Not Detected N NGONO) value) FT (test code = TRVG) Not detected (qualifier Not Detected N value) URINALYSIS WITH [id number] 10:57:00 Test Item Value Reference Range Interpretation Comments Color (test code = UCOLR) Dk. Yellow Clarity (test code = UCLAR) Hazy Glucose (test code = UGLUC) NEGATIVE NEGATIVE N Bilirubin (test code = UBILI) NEGATIVE NEGATIVE N Ketones (test code = UKET) NEGATIVE NEGATIVE N Specific [place] (test code = 1.025 1.005-1.030 A USPGR) [...]
[2022-01-05] MEDS ORDERED: MORPHINE 4 MG/ML SYR ONE (20:34)
[2022-01-05] MEDS ORDERED: ONDANSETRON 4 MG/2 ML VIAL ONE (20:34)
--- NOTE | 2022-01-05 21:08 | RAD REPORT ---
EXAM DESCRIPTION: Patrick Single View01/05/2022 8:53 pm CLINICAL HISTORY: Chest pain COMPARISON: none FINDINGS: The lungs appear clear of acute infiltrate. The heart is mildly enlarged IMPRESSION: No acute abnormalities displayed
[2022-01-05 22:31] LABS: Hematocrit 36.5 % (36.0-45.0); Lymphocytes % 18.9 % (15.3-44.8); MCV 84.2 fL (80-100); MPV 8.1 fL (7.6-11.3); Protime INR 1.03; RBC Red Blood Cell Count 4.33 M/uL (3.86-4.86)
[2022-01-05 22:43] LABS: Albumin 3.2 g/dL (3.4-5.0); Bilirubin Direct 0.2 mg/dL (0-0.2); Bilirubin Total 0.5 mg/dL (0.2-1.0); Magnesium 2.1 mg/dL (1.8-2.4); Potassium 3.1 mmol/L (3.5-5.1); Protein, Total 7.1 g/dL (6.4-8.2); Troponin High Sensitivity 16.8 pg/mL (<58.9)
[2022-01-05 23:22] LABS: Anisocytosis 2+; Blood Morphology Comment NOTED (NOT SEEN); Hypochromasia 1+; Macrocytosis 1+; Ovalocytes 1+; Platelet Estimate DECR; White Blood Cell Scan OK (OK)
[2022-01-05] MEDS ORDERED: METOPROLOL TAR 50 MG TAB ONE (23:25)
[2022-01-05] MEDS ORDERED: POTASSIUM 25 MEQ EFFERV TAB ONE (23:25)
[2022-01-05] MEDS ORDERED: lisinopriL 20 MG TAB ONE (23:25)
--- NOTE | 2022-01-06 00:06 | ER ---
Nurse's Notes [facility] Name: Fawn Fleming Age: 66 yrs Sex: Female : 1955 Arrival Date: 01/05/2022 Time: 18:22 Bed 26 Private MD: Diagnosis: Contusion, chest wall;Hypertensive heart disease with heart failure Presentation: 01/05 18:34 Chief complaint: Patient states: "I have to stay upright in my chair or I can't hb breathe." Reports SOB and chest tightness when supine x 2 days. On scene BP 210/115, HR 80s, SpO2 96% on RA, NAD. Coronavirus screen: At this time, the client does not indicate any symptoms associated with coronavirus-19. Ebola Screen: No symptoms or risks identified at this time. Risk Assessment: Do you want to hurt yourself or someone else? Patient reports no desire to harm self or others. Onset of symptoms was January 04, 2022. 18:34 Method Of Arrival: EMS: [facility] hb 18:34 Acuity: BLAYNE 3 hb 21:00 Initial Sepsis Screen: Does the patient meet any 2 criteria? No. Patient's initial ke1 sepsis screen is negative. Does the patient have a suspected source of infection? No. Patient's initial sepsis screen is negative. Triage Assessment: 21:00 General: Appears in no apparent distress. Behavior is appropriate for age. Pain: ke1 Complains of pain in right lateral anterior chest and left lateral anterior chest Pain does not radiate. Pain currently is 8 out of 10 on a pain scale. at worst was 10 out of 10 on a pain scale. level that patient reports is acceptable is 4 out of 10 on a pain scale. Respiratory: Reports shortness of breath on exertion Onset: The symptoms/episode began/occurred today, the patient has moderate shortness of breath. Historical: - Allergies: 18:36 Bactrim DS; hb 18:36 butorphanol tartrate; hb 18:36 Fentanyl; hb 18:36 Reglan; hb 18:36 Stadol; hb 18:36 sulfamethoxazole (bulk); hb 18:36 TRIMETHOPRIM; hb - PMHx: 01/06 00:04 Anxiety; Atrial Fib; Bipolar disorder; Chronic pain; COPD; esophageal varices; ke1 Hepatitis; HIV; Hypertension; Migraines; Panic Attacks; - Immunization history:: Adult Immunizations not up to date. - Social history:: Smoking status: Patient/guardian denies using tobacco, the patient reports quitting approximately 2 years ago. Screenin/16 21:00 Abuse screen: Denies threats or abuse. Nutritional screening: No deficits noted. ke1 Tuberculosis screening: No symptoms or risk factors identified. Fall Risk None identified. Assessment: 22:00 Cardiovascular: Rhythm is sinus bradycardia. Respiratory: Airway is patent Respiratory ke1 effort is even, unlabored, Breath sounds are clear bilaterally. 01/06 00:00 Reassessment: Patient denies pain at this time. Patient states feeling better. Patient ke1 states symptoms have improved. Vital Signs: 01/05 18:34 BP 180 / 110; Pulse 88; Resp 16; Temp 97.8; Pulse Ox 100% on R/A; Pain 8/10; hb 23:58 BP 165 / 102; Pulse 84; Resp 19; Pulse Ox 96% on R/A; ke1 ED Course: 18:22 Patient arrived in ED. rg4 18:36 Triage completed. hb 18:36 Arm band placed on. hb 19:34 Prem Garcia MD is Attending Physician. mh7 20:19 Eli Bran, ASHLEY is Primary Nurse. ke1 20:55 XRAY Chest (1 view) In Process Unspecified. EDMS 21:00 Bed in low position. Call light in reach. Side rails up X2. ke1 22:10 Initial lab(s) drawn, by me, sent to lab. Inserted saline lock: 20 gauge in right bb antecubital area, using aseptic technique. Blood collected. 01/06 00:07 No provider procedures requiring assistance completed. ke1 00:09 IV discontinued. ke1 Administered Medications: 01/05 23:11 Drug: morphine 4 mg Route: IVP; Infused Over: 4 mins; Site: right antecubital; ke1 01/06 00:09 Follow up: Response: Marked relief of symptoms ke1 01/05 23:11 Drug: Zofran (Ondansetron) 4 mg Route: IVP; Site: right antecubital; ke1 01/06 00:09 Follow up: Response: Marked relief of symptoms ke1 01/05 23:20 Drug: Potassium Effervescent Tablet 50 mEq Route: PO; ke1 01/06 00:08 Follow up: Response: No adverse reaction ke1 01/05 23:20 Drug: Lisinopril 40 mg Route: PO; ke1 01/06 00:08 Follow up: Response: No adverse reaction ke1 01/05 23:20 Drug: Metoprolol 100 mg Route: PO; ke1 01/06 00:08 Follow up: Response: No adverse reaction ke1 Medication: 00:08 VIS not applicable for this client. ke1 Outcome: 00:05 Discharge ordered by MD. cruz 00:09 Discharged to home ambulatory. ke1 00:09 Condition: good 00:09 Discharge instructions given to patient. 00:11 Patient left the ED. ke1 Signatures: Dispatcher [employer] EDDee Casey RN RN Tata Mistry RN RN hb Garcia, Rubi rg4 Holmes, Maurice, MD MD Eli Gomez RN RN counts include 234 beds at the [facility]
--- NOTE | 2022-01-06 00:06 | EDPHYS ---
Physician Documentation [facility] Name: Fawn Fleming Age: 66 yrs Sex: Female : 1955 Arrival Date: 01/05/2022 Time: 18:22 Bed 26 Private MD: ED Physician Prem Garcia HPI: 01/05 20:05 This 66 yrs old Female presents to ER via EMS with complaints of Shortness Of Breath. mh7 20:05 The patient has shortness of breath during emotionally upset. Onset: The [facility] symptoms/episode began/occurred yesterday. Duration: The symptoms are intermittent, with no pattern. The patient's shortness of breath is aggravated by supine position, emotional upset, is alleviated by sitting up. Associated signs and symptoms: Pertinent positives: chest pain, Pertinent negatives: non-productive cough, productive cough, diaphoresis, dizziness, fever, hemoptysis, loss of consciousness, nausea, numbness in extremities, visual changes, vomiting. Severity of symptoms: At their worst the symptoms were moderate yesterday, in the emergency department the symptoms have improved markedly. The patient has experienced similar episodes in the past, multiple times. Patient states that she was seen here yesterday after she slipped and fell and injured her left wrist and chest area. She states that she started feeling upset later because she did not receive enough pain medication while here and became SOB.. 20:05 The patient has been recently seen at the [facility] Emergency [facility] Department, yesterday. Historical: - Allergies: 18:36 Bactrim DS; hb 18:36 butorphanol tartrate; hb 18:36 Fentanyl; hb 18:36 Reglan; hb 18:36 Stadol; hb 18:36 sulfamethoxazole (bulk); hb 18:36 TRIMETHOPRIM; hb - PMHx: 01/06 00:04 Anxiety; Atrial Fib; Bipolar disorder; Chronic pain; COPD; esophageal varices; ke1 Hepatitis; HIV; Hypertension; Migraines; Panic Attacks; - Immunization history:: Adult Immunizations not up to date. - Social history:: Smoking status: Patient/guardian denies using tobacco, the patient reports quitting approximately 2 years ago. ROS: 01/05 20:05 Constitutional: Negative for fever, chills, and weight loss, Eyes: Negative for injury, mh7 pain, redness, and discharge, ENT: Negative for injury, pain, and discharge, Neck: Negative for injury, pain, and swelling, Abdomen/GI: Negative for abdominal pain, nausea, vomiting, diarrhea, and constipation, Back: Negative for injury and pain, : Negative for injury, bleeding, discharge, and swelling, MS/Extremity: Negative for injury and deformity, Skin: Negative for injury, rash, and discoloration, Neuro: Negative for headache, weakness, numbness, tingling, and seizure, Psych: Negative for depression, anxiety, suicide ideation, homicidal ideation, and hallucinations, Allergy/Immunology: Negative for hives, rash, and allergies, Endocrine: Negative for neck swelling, polydipsia, polyuria, polyphagia, and marked weight changes, Hematologic/Lymphatic: Negative for swollen nodes, abnormal bleeding, and unusual bruising. Exam: 20:05 Constitutional: This is a well developed, well nourished patient who is awake, alert, mh7 and in no acute distress. Head/Face: Normocephalic, atraumatic. Eyes: Pupils equal round and reactive to light, extra-ocular motions intact. Lids and lashes normal. Conjunctiva and sclera are non-icteric and not injected. Cornea within normal limits. Periorbital areas with no swelling, redness, or edema. Neck: Trachea midline, no thyromegaly or masses palpated, and no cervical lymphadenopathy. Supple, full range of motion without nuchal rigidity, or vertebral point tenderness. No Meningismus. Cardiovascular: Regular rate and rhythm with a normal S1 and S2. No gallops, murmurs, or rubs. Normal PMI, no JVD. No pulse deficits. Respiratory: Lungs have equal breath sounds bilaterally, clear to auscultation and percussion. No rales, rhonchi or wheezes noted. No increased work of breathing, no retractions or nasal flaring. 20:05 Abdomen/GI: Soft, non-tender, with normal bowel sounds. No distension or tympany. No guarding or rebound. No evidence of tenderness throughout. Back: No spinal tenderness. No costovertebral tenderness. Full range of motion. Skin: Warm, dry with normal turgor. Normal color with no rashes, no lesions, and no evidence of cellulitis. MS/ Extremity: Pulses equal, no cyanosis. Neurovascular intact. Full, normal range of motion. Neuro: Awake and alert, GCS 15, oriented to person, place, time, and situation. Cranial nerves II-XII grossly intact. Motor strength 5/5 in all extremities. Sensory grossly intact. Cerebellar exam normal. Normal gait. Psych: Awake, alert, with orientation to person, place and time. Behavior, mood, and affect are within normal limits. 20:05 Chest/axilla: Inspection: ecchymosis, that is mild, of the left lateral anterior chest and right lateral anterior chest Palpation: tenderness, that is moderate, of the left lateral anterior chest and right lateral anterior chest, that totally reproduces the patient's complaints, Axilla: are normal, Lymph nodes: lymphadenopathy is not appreciated. Vital Signs: 18:34 BP 180 / 110; Pulse 88; Resp 16; Temp 97.8; Pulse Ox 100% on R/A; Pain 8/10; hb 23:58 BP 165 / 102; Pulse 84; Resp 19; Pulse Ox 96% on R/A; ke1 MDM: 23:59 Differential diagnosis: Anemia Anxiety Reaction asthma, Bronchitis CHF exacerbation, mh7 Chronic Obstructive Pulmonary Disease Myocardial Infarction pneumonia, Pneumothorax Psychogenic pulmonary edema, reactive airway disease. Data reviewed: vital signs, nurses notes, old medical records, lab test result(s), cardiac enzymes, CBC, electrolytes, EKG, radiologic studies, plain films. Data interpreted: Pulse oximetry: on room air is 98 %. Interpretation: normal. Counseling: I had a detailed discussion with the patient and/or guardian regarding: the historical points, exam findings, and any diagnostic results supporting the discharge/admit diagnosis, the presence of at least one elevated blood pressure reading (>120/80) during this emergency department visit, lab results, radiology results, the need for outpatient follow up, to return to the emergency department if symptoms worsen or persist or if there are any questions or concerns that arise at home. Response to treatment: the patient's symptoms have resolved after treatment, the patient's blood pressure is in an acceptable range, mental status has returned to baseline, the patient no longer shows bradycardia, the patient is not short of breath, the patient is not tachycardic, the patient's pain is gone, the patient's temperature has normalized, the patient is now symptom free, patient is well hydrated. ED course: Feels better, well appearing, NAD, VSS, no focal neurological deficits. No chest pain, SOB, nausea, vomiting, or other complaints. Tolerating PO intake without difficulty. Discussed test results and findings. Patient requests to be discharged home at this time.. 01/06 00:05 Patient medically screened. [facility] 01/05 19:52 Order name: Basic Metabolic Panel; Complete Time: 22:56 [facility] 01/05 19:52 Order name: CBC with Diff; Complete Time: 23:27 [facility] 01/05 19:52 Order name: LFT's; Complete Time: 22:56 [facility] 01/05 19:52 Order name: Magnesium; Complete Time: 22:56 [facility] 01/05 19:52 Order name: NT PRO-BNP; Complete Time: 22:56 [facility] 01/05 19:52 Order name: PT-INR; Complete Time: 22:56 [facility] 01/05 19:52 Order name: Troponin HS; Complete Time: 22:56 [facility] 01/05 19:52 Order name: XRAY Chest (1 view); Complete Time: 21:10 [facility] 01/05 20:11 Order name: COVID-19 SARS RT PCR (Document "Date of Onset" if Symptomatic); Complete [facility] Time: 22:56 01/05 20:11 Order name: Influenza Screen (a \\T\\ B); Complete Time: 22:56 [facility] 01/05 22:41 Order name: CBC Smear Scan; Complete Time: 23:27 [facility] 01/05 19:52 Order name: EKG; Complete Time: 19:55 [facility] 01/05 19:52 Order name: Cardiac monitoring; Complete Time: 23:47 [facility] 01/05 19:52 Order name: EKG - Nurse/Tech; Complete Time: 23:47 [facility] 01/05 19:52 Order name: IV Saline Lock; Complete Time: 23:47 [facility] 01/05 19:52 Order name: Labs collected and sent; Complete Time: 23:47 [facility] 01/05 19:52 Order name: O2 Per Protocol; Complete Time: 23:47 [facility] 01/05 19:52 Order name: O2 Sat Monitoring; Complete Time: 23:48 mh7 Administered Medications: 01/05 23:11 Drug: morphine 4 mg Route: IVP; Infused Over: 4 mins; Site: right antecubital; 01/06 00:09 Follow up: Response: Marked relief of symptoms 01/05 23:11 Drug: Zofran (Ondansetron) 4 mg Route: IVP; Site: right antecubital; ke01/06 00:09 Follow up: Response: Marked relief of symptoms 01/05 23:20 Drug: Potassium Effervescent Tablet 50 mEq Route: PO; ke1 01/06 00:08 Follow up: Response: No adverse reaction 01/05 23:20 Drug: Lisinopril 40 mg Route: PO; ke01/06 00:08 Follow up: Response: No adverse reaction 01/05 23:20 Drug: Metoprolol 100 mg Route: PO; 01/06 00:08 Follow up: Response: No adverse reaction [facility] Disposition Summary: 01/06/22 00:05 Discharge Ordered Location: Home [facility] Problem: an ongoing problem [facility] Symptoms: have improved [facility] Condition: Stable [facility] Diagnosis - Contusion, chest wall [facility] - Hypertensive heart disease with heart failure [facility] Followup: [facility] - With: Private Physician - When: 1 - 2 days - Reason: Worsening of condition, Recheck today's complaints, Continuance of care, Re-evaluation by your physician Discharge Instructions: - Discharge Summary Sheet [facility] - Chest Wall Pain, [id number] [facility] - Hypertension, Adult, [id number] [facility] Forms: - Medication Reconciliation Form [facility] - Thank You Letter [facility] - Antibiotic Education [facility] - Prescription Opioid Use [facility] Signatures: Dispatcher [employer] Tata Arriola RN RN Prem Garcia MD MD [facility] Eli Bran RN RN ke1
[2022-01-06 01:26] VITALS: TEMP 97.8
[2022-01-06 01:28] VITALS: BP 165/102; O2SAT 96
--- NOTE | 2022-01-07 07:56 | EKG ---
Test Date: 2022-01-05 Test Time: 21:02:46 Varnisher: GONZALO MEASUREMENT RESULTS: Intervals: Rate: 58 [place]: QRSD: 84 QT: 486 QTc: 477 [place]: P: NV: QRS: 27 T: 8 INTERPRETIVE STATEMENTS: Junctional rhythm Moderate voltage criteria for LVH, may be normal variant Nonspecific ST abnormality Abnormal ECG Compared to ECG 01/04/2022 20:29:08 Junctional rhythm now present Left ventricular hypertrophy now present Atrial fibrillation no longer present Prolonged QT interval no longer present ST (T wave) deviation still present Electronically Signed On 01-07-22 07:54:39 CDT by Per Crane
== END 2022-01-06 00:11 | disposition home or self-care (01) ==
LOC: ER 18:18
DX: S20.219A Contusion of unspecified front wall of thorax, initial encounter (principal); I11.9 Hypertensive heart disease without heart failure; I10 Essential (primary) hypertension; Z79.82 Long term (current) use of aspirin; Z20.822 Contact with and (suspected) exposure to COVID-19; Z21 Asymptomatic human immunodeficiency virus [HIV] infection status; Z88.1 Allergy status to other antibiotic agents; Z88.2 Allergy status to sulfonamides; Z88.5 Allergy status to narcotic agent; Z88.8 Allergy status to other drugs, medicaments and biological substances
CPT/HCPCS: 85025; 80048; 36415; 83735; 85610; 80076; 84484; 83880; 87804 ×2; 71045; U0003; J2405; 93005; 96374; 96375; 99284

== ENCOUNTER 2022-01-09 12:33 | Emergency (ER) | payer OTHER ==
--- OUTSIDE RECORDS SUMMARY | 2022-01-09 12:42 | XMS REPORT | Continuity of Care Document ---
:[address] [facility] t Address [address] [place] [address] Care Team Providers Name Role Phone Urmila Rahman Primary Care Physician Mike Lund Attending Clinician Unavailable ELAN LIRA Attending Clinician Unavailable SANTIAGO CARDENAS Attending Clinician Unavailable Doctor Unassigned, [place] Attending Clinician Unavailable Bill GUO Attending Clinician Unavailable Bill Rose Attending Clinician [facility] Attending Clinician Unavailable Santiago Sanchez Attending Clinician Beverly Layton MD Attending Clinician Eliseo Arce MD Attending Clinician Carol Ann FUNCTIONAL DIRECTOR, Sarai Lieberman Attending Clinician [phone] Prabhu SANCHEZ, Ashly Attending Clinician Unavailable Robbi [...] Policy Number Effective Date Expiration Date S [facility] COMMUNITY [id number] 2012 STARPLUS OON 00:00:00 EXCEPT [facility] [id number] 2020 COMP HMO D SNP 00:00:00 MEDICAID OF [place] [id number] 2020 00:00:00 Problems Condition Condition Condition Status Onset Resolution Last Treating Co mments Source Name Details Category Date Date Treatment Clinician Date Gastropare Gastropare Disease Active Overview : Methodi sis sis 4-[address] 00:00: [facility] 00 note l might be different from the original. Added automatic ally from request for surgery [id number] Dysphagia Dysphagia Disease Active Overview: Methodi 4-[address] 00:00: g of this [facility]osp[facility] 00 note l might be different from the original. 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 2020-10-15 Memoria PVI PVI 3-30 17:07:00 l ABLATION ABLATION 00:00: Patel soares W/ CARTO / W/ CARTO / 00 GA / T GA / T Active 08/19/2020 [facility] [...] [facility] hoxazole 1-25 Clear 00:00: Garcia 00 [facility] trimetho DA Active SV [facility] prim 1- Clear 00:00: Garcia 00 [facility] codeine DA Active SV N/V H[facility] 1-25 Clear 00:00: Garcia [facility] Metoclop Propensi Active [facility] ramide ty to [...] Stop Date Source Natural father Hypertension Methodis [facility] Natural father Kidney disease Method ist [facility] Natural mother [facility] Social History Social Habit Start Date Stop Date Quantity Comments Source History [facility] Alcohol Comment History of tobacco Smoker Method ist use Hospital History [facility] Alcohol Frequency Hospita l History [facility] Std Drinks Hospit al History [facility] B[facility] Exposure to 2021-12-02 2021-12-12 Not sure University SARS-CoV-2 (event) 00:00:00 23:54:00 [facility] Alcohol intake 2021-07-14 2021-07-14 Ex-drinker [facility] 00:00:00 00:00:00 (finding) Cigarettes smoked 2020-09-05 2020-09-[address] current (pack per 00:00:00 00:00:00 Hospita l day) - Reported Cigarette 2020-09-05 2020-09-05 [facility] pack-years 00:00:00 00:00:00 Hospital Tobacco use and 2020-08-06 2020-08-06 Former smokeless Uni versity of exposure 00:00:00 00:00:00 tobacco user [facility] Tobacco Comment 2015-02-14 2015-02-14 Smokes approx 1-2 Un iversity of 00:00:00 00:00:00 cigarettes per [facility] day when she Branch smokes Sex Assigned At [address] [facility] 00:00:00 00:00:00 Smoking Status Start Date Stop Date Source Ex-smoker 2020-08-06 00:00:00 2020-08-06 00:00:00 [facility] Medications Ordered Filled Start Stop Current Ordering Indication Dosage Frequency Signature Comments Components Source Medication Medication Date Date Medication? Clinician (SIG) Name Name methocarbam No 500mg 500 mg, U nivers oL 12-13 Oral, ity of (ROBAXIN) 07:45: 06:35 [place]CE[place] 500 [place] :00 dose, On Medic al mg [facility] 12/13/21 at 0245, Routine ketorolac No 30mg 30 mg, Unive rs (TORADOL) 12-13 Intramuscu ity of injection 07:45: 06:34 lar, ONCE, [place] 30 mg 00 :00 1 dose, On Medical [facility] 12/13/21 at 0245, JOE naproxen 2022-0 Yes [id number] 500mg Take 1 U nivers (NAPROSYN) 7-24 tablet by ity of 500 mg 00:00: mouth in [place] tablet 00 the Medical morning Branch and 1 tablet in the evening. Take with meals. methocarbam 2022-0 Yes [id number] 500mg Take 1 Univers oL 500 mg 7-24 tablet by ity o f tablet 00:00: mouth 4 [place] ([facility]) Medical times [place] daily. naproxen 2022-0 Yes [id number] 500mg Take 1 U nivers (NAPROSYN) 7-24 tablet by ity of 500 mg 00:00: mouth in [place] tablet 00 the Medical morning Branch and 1 tablet in the evening. Take with meals. methocarbam 2022-0 Yes [id number] 500mg Take 1 Univers oL 500 mg 7-24 tablet by ity o f tablet 00:00: mouth 4 [place] [address] [facility]) [facility] times [place] daily. naproxen 2022-0 Yes [id number] 500mg Take 1 U nivers (NAPROSYN) 7-24 tablet by ity of 500 mg 00:00: mouth in [place] tablet 00 the Medical morning Branch and 1 tablet in the evening. Take with meals. methocarbam 2022-0 Yes [id number] 500mg Take 1 Univers oL 500 mg 7-24 tablet by ity o f tablet 00:00: mouth 4 [place] ([facility]) [facility] times [place] daily. hydralAZINE 2-0 Yes 25mg Take 25 mg Univers (APRESOLINE 7-01 by mouth ity of ) 25 mg 08:47: daily. [address] hydralAZINE 2-0 Yes 25mg Take 25 mg Univers (APRESOLINE 7-01 by mouth ity of ) 25 mg 08:47: daily. [address] hydralAZINE 2022-0 Yes 25mg Take 25 mg Univers (APRESOLINE 7-01 by mouth ity of ) 25 mg 08:47: daily. [address] hydralAZINE 2-0 Yes 25mg Take 25 mg Univers (APRESOLINE 7-01 by mouth ity of ) 25 mg 08:47: daily. [address] buPROPion 2-0 Yes [id number] 150mg Take 1 U nivers XL 4-12 tablet by ity of (WELLBUTRIN 00:00: mouth [place] XL) 150 mg 00 daily. Medical 24 hr Branch tablet busPIRone 2021-0 Yes [id number] 30mg Take 1 Un matt 30 mg 4-12 tablet by ity of tablet 00:00: mouth 2 00 (two) Medical times Branch daily. SERTraline 2021-0 Yes [id number] 200mg Take 2 Univers 100 mg 4-12 tablets by ity of tablet 00:00: mouth [place] 00 daily. Medical Branch buPROPion 2021-0 Yes [id number] 150mg Take 1 U nivers XL 4-12 tablet by ity of (WELLBUTRIN 00:00: mouth [place] XL) 150 mg 00 daily. Medical 24 hr Branch tablet busPIRone 2021-0 Yes [id number] 30mg Take 1 Un matt 30 mg 4-12 tablet by ity of tablet 00:00: mouth 2 (two) Medical times Branch daily. SERTraline 2021-0 Yes [id number] 200mg Take 2 Univers 100 mg 4-12 tablets by ity of tablet 00:00: mouth [place] 00 daily. Medical Branch buPROPion 2021-0 Yes [id number] 150mg Take 1 U nivers XL 4-12 tablet by ity of (WELLBUTRIN 00:00: mouth [place] XL) 150 mg 00 daily. Medical 24 hr Branch tablet busPIRone 2021-0 Yes [id number] 30mg Take 1 Un matt 30 mg 4-12 tablet by ity of tablet 00:00: mouth 2 (two) Medical times Branch daily. SERTraline 2021-0 Yes [id number] 200mg Take 2 Univers 100 mg 4-12 tablets by ity of tablet 00:00: mouth [place] 00 daily. Medical Branch buPROPion 2021-0 Yes [id number] 150mg Take 1 U nivers XL 4-12 tablet by ity of (WELLBUTRIN 00:00: mouth [place] XL) 150 mg 00 daily. Medical 24 hr Branch tablet busPIRone 2021-0 Yes [id number] 30mg Take 1 Un matt 30 mg 4-12 tablet by ity of tablet 00:00: mouth 2 00 (two) Medical times Branch daily. SERTraline 2021-0 Yes [id number] 200mg Take 2 Univers 100 mg 4-12 tablets by ity of tablet 00:00: mouth [place] 00 daily. Medical Branch raltegravir 2021-0 Yes [id number] 400mg Take 1 Univers (ISENTRESS) 3-28 tablet by ity of 400 mg 00:00: mouth 2 [place] tablet 00 (two) Medical times Branch daily. raltegravir 2021-0 Yes [id number] 400mg Take 1 Univers (ISENTRESS) 3-28 tablet by ity of 400 mg 00:00: mouth 2 [place] tablet 00 (two) Medical times Branch daily. raltegravir 2021-0 Yes [id number] 400mg Take 1 Univers (ISENTRESS) 3-28 tablet by ity of 400 mg 00:00: mouth 2 [place] tablet 00 (two) Medical times Branch daily. raltegravir 2021-0 Yes [id number] 400mg Take 1 Univers (ISENTRESS) 3-28 tablet by ity of 400 mg 00:00: mouth 2 [place] tablet 00 (two) Medical times Branch daily. raltegravir 2021-0 Yes [id number] 400mg Take 1 Univers (ISENTRESS) 3-28 tablet by ity of 400 mg 00:00: mouth 2 [place] tablet 00 (two) Medical times Branch daily. LORazepam 1 2021-0 Yes [id number] 1mg Take 1 Univers mg tablet 3-21 [...] MG 00 times a tablet day. buPROPion 2021-0 2022- No [id number] 150mg Take 1 Univers XL 1-24 04-12 tablet by ity of (WELLBUTRIN 00:00: 00:00 [place] XL) 150 mg 00 :00 daily. Medical 24 hr Branch tablet busPIRone 2021- No [id number] 30mg Take 1 U nivers 30 mg 06-15-12 tablet by ity of tablet 00:00: 00:00 mouth 2 [place] 00 :00 (two) Medical times Branch daily. SERTraline 2021- No [id number] 200mg Take 2 Univers 100 mg 06-15-12 tablets by ity of tablet 00:00: 00:00 mouth [place] 00 :00 daily. Medical Branch emtricitabi Yes [id number] Take one Univers ne-tenofovi 1-20 po daily ity of r alafen 00:00: [place] (DESCOVY) 00 Medical tablet Branch emtricitabi Yes [id number] Take one Univers ne-tenofovi 1-20 po daily ity of r alafen 00:00: [place] (DESCOVY) 00 Medical tablet Branch emtricitabi Yes [id number] Take one Univers ne-tenofovi 1-20 po daily ity of r alafen 00:00: [place] (DESCOVY) 00 Medical tablet Branch emtricitabi Yes [id number] Take one Univers ne-tenofovi 1-20 po daily ity of r alafen 00:00: [place] (DESCOVY) 00 Medical tablet Branch emtricitabi Yes [id number] Take one Univers ne-tenofovi 1-20 po daily ity of r alafen 00:00: [place] (DESCOVY) 00 Medical tablet Branch metoprolol Yes [id number] Take 1 [facility] tartrate 7-26 tablet Health (Lopressor) 00:00: (100 mg 100 MG 00 total) by tablet mouth 2 (two) times a day AND 0.5 tablets (50 mg total) every night. metoprolol Yes [id number] Take 1 [facility] tartrate 7-26 tablet Health [...] area in groin) hydrALAZINE 0 Yes 50mg Q.[id number] Take 50 mg Methodi (APRESOLINE 7-[id number] mouth [address] ) 50 MG [...] Hospita tablet 25 daily. l nystatin-tr Yes [id number] Apply to [facility] iainolone 7-06 area(s) 3 ity of cream 00:00: (three) [place] 00 times Medical daily. Branch nystatin-tr Yes [id number] Apply to [facility] iainolone 7-06 area(s) 3 ity of cream 00:00: (three) [place] 00 times Medical daily. Branch nystatin-tr 2020-0 Yes [id number] Apply to [facility] iainolone 7-06 area(s) 3 ity of cream 00:00: (three) [place] 00 times Medical daily. Branch nystatin-tr 2020-0 Yes [id number] Apply to [facility] iainolone 7-06 area(s) 3 ity of cream 00:00: (three) [place] 00 times Medical daily. Branch nystatin-tr 0 Yes [id number] Apply to [facility] iainolone 7-06 area(s) 3 ity of cream 00:00: (three) [place] 00 times Medical daily. Branch budesonide- 2020-0 2020- No 1{puff} QD Inhale 1 Methodi formoteroL 6-25 06-[address] (SYMBICORT) 14:37: 00:00 morning. H ospita 160-4.5 02 :00 l mcg/actuati on inhaler hydrALAZINE Yes [id number] 50mg Q.[id number] Take 1 UT (Apresoline 6-11 [id number] tablet (50 Health ) 50 MG 00:00: 3D mg total) tablet 00 by mouth 3 (three) times a day. hydrALAZINE 0 Yes [id number] 50mg Q.[id number] Take 1 UT (Apresoline 10-31 [id number] tablet (50 Health ) 50 MG 00:00: [...] 00:00: 00:00 0.083% 00 :00 nebulizer solution sertraline Yes 200mg 200 mg. UT (Zoloft) 5-30 Health 100 MG 00:00: tablet 00 lisinopril 0 Yes UT 40 MG 5-30 Health tablet 00:00: 00 lisinopril 2020-0 Yes UT 40 MG 5-30 Health tablet 00:00: 00 sertraline 2020-0 2021- No 200mg 200 mg. UT (Zoloft) 5-30 02-22 Health 100 MG 00:00: 00:00 tablet 00 :00 mupirocin 2020-0 Yes UT (Bactroban) 5-28 Health 2 % 00:00: ointment 00 mupirocin 2020-0 Yes UT (Bactroban) 5-28 Health 2 % 00:00: ointment 00 nystatin 0 2020- No [id number] Q.25D Take 5 mL Methodi (MYCOSTATIN 17 [...] ia 4-10 (Same as: l 14:00: Cordarone) [place] Amlodipine No Notes: Memor ia 4-10 (Same as: l 14:00: Norvasc) [place] emtricitabi No Notes: Caesar lisa ne 200 [...] e 4-10 Tablet l 14:00: should not [place] 00 be chewed or crushed. (Same as: [...] ia 4-10 (Same as: l 14:00: Norvasc) [place] emtricitabi No Notes: Caesar lisa ne 200 MG / 4-10 (Same as: l tenofovir 14:00: Descovy) Herm ariel alafenamide 00 Non-formul 25 MG Oral nancy Tablet [Descovy] Sertraline No Notes: Memor ia 4-10 (Same as: l 14:00: Zoloft) [place] pantoprazol No Notes: Caesar lisa e 4-10 Tablet l 14:00: should not [place] 00 be chewed or crushed. (Same as: Protonix) Amiodarone No Notes: Memor ia 4-10 (Same as: l 14:00: Cordarone) [place] Amlodipine No Notes: Memor ia 4-10 (Same as: l 14:00: Norvasc) [place] emtricitabi No Notes: Caesar lisa ne 200 MG / 4-10 (Same as: l tenofovir 14:00: Descovy) Herm ariel alafenamide 00 Non-formul 25 MG Oral nancy Tablet [Descovy] Sertraline No Notes: Memor ia 4-10 (Same as: l 14:00: Zoloft) [place] pantoprazol No Notes: Caesar lisa e 4-10 [...] ia 4-10 (Same as: l 14:00: Zoloft) [place] 00 pantoprazol No Notes: Caesar lisa e 4-10 Tablet l 14:00: should not [place] 00 be chewed or crushed. (Same as: Protonix) Amiodarone No Notes: Memor ia 4-10 (Same as: l 14:00: Cordarone) [place] 00 Amlodipine No Notes: Memor ia 4-10 [...] e 4-10 Tablet l 14:00: should not [place] 00 be chewed or crushed. (Same as: Protonix) Amiodarone No Notes: Memor ia 4-10 (Same as: l 14:00: Cordarone) [place] 00 Sucralfate No Notes: May M emoria 4-10 interfere l 02:00: w/enteral [place] feeds - Take 1 hr before or 2 hr after antacids, dairy pdt, meals & minerals - On empty stomach. For patients unable to swallow tablet, dissolve in 10mL - 30mL of water or juice and stir before giving. (Same As: Carafate) Saline No Notes: Memoria Flush 0.9% 4-10 (Same as: l 02:00: BD [place] Posiflush) Eliquis No Notes: Memoria 4-10 Same as: l 02:00: Eliquis [place] 00 Hydralazine No Notes: Caesar lisa Hydrochlori 4-10 (Same as: l de 50 MG 02:00: Apresoline Her mitchell Oral Tablet 00 ) May interfere w/enteral feedings Take With Food Sucralfate No Notes: May M emoria 4-10 interfere l 02:00: w/enteral [place] 00 feeds - Take 1 hr before or 2 hr after antacids, dairy pdt, meals & minerals - On empty stomach. For patients unable to swallow tablet, dissolve in 10mL - 30mL of water or juice and stir before giving. (Same As: Carafate) Saline No Notes: Memoria Flush 0.9% 4-10 (Same as: l 02:00: BD [place] Posiflush) Eliquis No Notes: Memoria 4-10 Same [...] Memoria 4-10 Same as: l 02:00: Eliquis [place] Hydralazine No Notes: Caesar lisa Hydrochlori 4-10 [...] 0.9% 4-10 (Same as: l 02:00: BD [place] 00 Posiflush) Eliquis No Notes: Memoria 4-10 Same as: l 02:00: Eliquis [place] Hydralazine No Notes: Caesar lisa Hydrochlori 4-10 (Same as: l de 50 MG 02:00: Apresoline Her mit[place] Oral Tablet 00 ) May interfere w/enteral feedings Take With Food Sucralfate No Notes: May M emoria 4-10 interfere l 02:00: w/enteral [place] 00 feeds - Take 1 hr before [...] not exceed l #3 00:12: 4gm/day of [place] acetaminop hen. (Same as: Tylenol with Codeine [...] oria 4-09 tab, l 22:00: Route: PO, [place] Drug form: TAB, BID, Dosing Weight 97.273, [...] tartrate 4-09 tab, l 22:00: Route: PO, [place] 00 Drug form: TAB, BID, Dosing Weight [...] tartrate 4-09 tab, l 22:00: Route: PO, [place] 00 Drug form: TAB, BID, Dosing Weight [...] Notes: Memoria 4-09 (Same l 17:07: as:MORPhin [place] 00 e Sulfate) Morphine No Notes: Memoria 4-09 (Same l 17:07: as:MORPhin [place] 00 e Sulfate) Morphine No Notes: Memoria 4-09 (Same l 17:07: as:MORPhin [place] 00 e Sulfate) Morphine No Notes: Memoria 4-09 (Same l 17:07: as:MORPhin [place] 00 e Sulfate) Morphine No Notes: Memoria 4-09 (Same l 17:07: as:MORPhin Marty 00 e Sulfate) Morphine No Notes: Memoria 4-09 (Same l 17:07: as:MORPhin [place] 00 e Sulfate) Morphine No Notes: Memoria 4-09 (Same l 17:07: as:MORPhin Mat[place] 00 e Sulfate) buPROPion No 150 mg, [...] 08-29 Drug form: l 15:40: INJ, ONCE, [place] 00 Stop date: 08/29/20 10:40:00 CDT pantoprazol 2021-0 Yes 40 mg = 1 M emoria e 40 mg 4-09 tab, PO, l oral 15:27: Daily, # [place] enteric 00 30 tab, 0 coated Refill(s), tablet Pharmacy: [facility], 162.56, cm, 08/29/20 5:30:00 CDT, Height, 97.273, kg, 08/29/20 5:30:00 CDT, Weight pantoprazol 2021-0 Yes 40 mg = 1 M emoria e 40 mg 4-09 tab, PO, l oral 15:27: Daily, # [place] enteric 00 30 tab, 0 coated Refill(s), tablet Pharmacy: [facility] 149, 162.56, cm, 08/29/20 5:30:00 CDT, Height, 97.273, kg, 08/29/20 5:30:00 CDT, Weight pantoprazol 2021-0 Yes 40 mg = 1 M emoria e 40 mg 4-09 tab, PO, l oral 15:27: Daily, # [place] enteric 00 30 tab, 0 coated Refill(s), tablet Pharmacy: [facility] 149, 162.56, cm, 08/29/20 5:30:00 CDT, Height, 97.273, kg, 08/29/20 5:30:00 CDT, Weight pantoprazol 2021-0 Yes 40 mg = 1 M emoria e 40 mg 4-09 tab, PO, l oral 15:27: Daily, # [place] enteric 00 30 tab, 0 coated Refill(s), tablet Pharmacy: [facility] 149, 162.56, cm, 08/29/20 5:30:00 CDT, Height, 97.273, kg, 08/29/20 5:30:00 CDT, Weight pantoprazol 2021-0 Yes 40 mg = 1 M emoria e 40 mg 4-09 tab, PO, l oral 15:27: Daily, # [place] enteric 00 30 tab, 0 coated Refill(s), tablet Pharmacy: [facility] 149, 162.56, cm, 08/29/20 5:30:00 CDT, Height, 97.273, kg, 08/29/20 5:30:00 CDT, Weight pantoprazol 1-0 Yes 40 mg = 1 M emoria e 40 mg 4-09 tab, PO, l oral 15:27: Daily, # [place] enteric 00 30 tab, 0 coated Refill(s), tablet Pharmacy: [place] [address], 162.56, cm, 08/29/20 5:30:00 CDT, Height, 97.273, kg, 08/29/20 5:30:00 CDT, Weight pantoprazol 2020-0 Yes 40 mg = 1 M emoria e 40 mg 4-09 tab, PO, l oral 15:27: Daily, # [place] enteric 00 30 tab, 0 coated Refill(s), tablet Pharmacy: [place] [address], 162.56, cm, 08/29/20 5:30:00 CDT, Height, 97.273, kg, 08/29/20 5:30:00 CDT, Weight pantoprazol 2020-0 No 40 mg = 1 M emoria e 40 mg 4-09 tab, PO, l oral 15:26: Daily, # [place] enteric 00 30 tab, 0 coated Refill(s) tablet sucralfate 2020-0 Yes 1 gm = 1 Mem oria 1 g oral 4-09 tab, PO, l tablet 15:26: Q12H, # 28 Skylar nn 00 tab, 0 Refill(s), Pharmacy: [place] [address], 162.56, cm, 08/29/20 5:30:00 CDT, Height, 97.273, [...] 00 tab, 0 Refill(s), Pharmacy: [place] [address], 162.56, cm, 08/29/20 5:30:00 CDT, Height, 97.273, [...] 00 tab, 0 Refill(s), Pharmacy: [place] [address], 162.56, cm, 08/29/20 5:30:00 CDT, Height, 97.273, kg, 08/29/20 5:30:00 CDT, Weight pantoprazol 2020-0 No 40 mg = 1 M emoria e 40 mg 4-09 tab, PO, l oral 15:26: Daily, # [place] enteric 00 30 tab, 0 coated Refill(s) tablet sucralfate 2020-0 Yes 1 gm = 1 Mem oria 1 g oral 4-09 tab, PO, l tablet 15:26: Q12H, # 28 Skylar nn 00 tab, 0 Refill(s), Pharmacy: [place] [address], 162.56, cm, 08/29/20 5:30:00 CDT, Height, 97.273, [...] Skylar nn 00 tab, 0 Refill(s), Pharmacy: [facility] 149, 162.56, cm, 08/29/20 5:30:00 CDT, Height, 97.273, kg, 08/29/20 5:30:00 CDT, Weight pantoprazol 2020-0 No 40 mg = 1 M emoria e 40 mg 4-09 tab, PO, l oral 15:26: Daily, # [place] enteric 00 30 tab, 0 coated Refill(s) tablet sucralfate Yes 1 gm = 1 Mem oria 1 g oral 4-09 tab, PO, l tablet 15:26: Q12H, # 28 Skylar nn 00 tab, 0 Refill(s), Pharmacy: [facility] 149, 162.56, cm, 08/29/20 5:30:00 CDT, [...] Skylar nn 00 tab, 0 Refill(s), Pharmacy: [facility] 149, 162.56, cm, 08/29/20 5:30:00 CDT, Height, 97.273, kg, 08/29/20 5:30:00 CDT, Weight Saline No Notes: Memoria Flush 0.9% 4-09 (Same as: l 15:25: BD [place] 00 Posiflush) Lorazepam No Notes: Memori a 4-09 (Same as: l 15:25: Ativan) [place] 00 Saline No Notes: Memoria Flush 0.9% 4-09 (Same as: l 15:25: BD [place] 00 Posiflush) Lorazepam No Notes: Memori a 4-09 (Same as: l 15:25: Ativan) [place] 00 Saline No Notes: Memoria Flush 0.9% 4-09 (Same as: l 15:25: BD [place] 00 Posiflush) Saline No Notes: Memoria Flush [...] 0.9% 4-09 (Same as: l 15:25: BD [place] Posiflush) Lorazepam No Notes: Memori a 4-09 [...] 08-29 Route: PO, l 14:01: Drug form: [place] 00 TAB, ONCE, Dosing Weight 97.273, kg, [...] oria ne 08-29 Route: l 14:01: IVP, [place] 00 Q5Min, Dosing Weight 97.273, kg, PRN [...] Memori a 08-29 Route: l 14:01: IVP, [place] 00 Q5Min, Dosing Weight 97.273, kg, PRN Elevated BP, Start date: 08/29/20 9:01:00 CDT, Duration: 5 doses or times, Stop date: Limited # of times Acetaminoph 2021-0 No 1,000 mg, M emoria en 08-29 Route: PO, l 14:01: Drug form: [place] 00 TAB, ONCE, Dosing Weight 97.273, kg, [...] oria ne 08-29 Route: l 14:01: IVP, [place] 00 Q5Min, Dosing Weight 97.273, kg, PRN [...] Memori a 08-29 Route: l 14:01: IVP, [place] 00 Q2MIN, Dosing Weight 97.273, kg, PRN Narcotic Reversal, Start date: 08/29/20 9:01:00 CDT, Duration: 8 doses or times, Stop date: Limited # of times Ondansetron 1-0 No 4 mg, Memor ia 08-29 Route: l 14:01: IVP, ONCE, [place] 00 Dosing Weight 97.273, kg, PRN Nausea & Vomiting, Start date: 08/29/20 9:01:00 CDT Labetalol 2021-0 No 10 mg, Memori a 08-29 Route: l 14:01: IVP, [place] 00 Q5Min, Dosing Weight 97.273, kg, PRN [...] oria ne 08-29 Route: l 14:01: IVP, [place] 00 Q5Min, Dosing Weight 97.273, kg, PRN Pain Score 7-10, Start date: 08/29/20 9:01:00 CDT, Duration: 4 doses or times, Stop date: Limited # of times Labetalol 2021-0 No 10 mg, Memori a 08-29 Route: l 14:01: IVP, [place] 00 Q5Min, Dosing Weight 97.273, kg, PRN [...] oria ne 08-29 Route: l 14:01: IVP, [place] 00 Q5Min, Dosing Weight 97.273, kg, PRN Pain Score 7-10, Start date: 08/29/20 9:01:00 CDT, Duration: 4 doses or times, Stop date: Limited # of times Flumazenil 1-0 No 0.2 mg, Caesar lisa 08-29 Route: l 14:01: IVP, PRN, [place] 00 Dosing Weight 97.273, kg, PRN Benzodiaze [...] ia 08-29 Route: l 14:01: IVP, ONCE, [place] 00 Dosing Weight 97.273, kg, PRN Nausea [...] oria ne 08-29 Route: l 14:01: IVP, [place] 00 Q5Min, Dosing Weight 97.273, kg, PRN [...] ia 08-29 Route: l 14:01: IVP, ONCE, [place] 00 Dosing Weight 97.273, kg, PRN Nausea & Vomiting, Start date: 08/29/20 9:01:00 CDT Labetalol 1-0 No 10 mg, Memori a 08-29 Route: l 14:01: IVP, [place] 00 Q5Min, Dosing Weight 97.273, kg, PRN Elevated BP, Start date: 08/29/20 9:01:00 CDT, Duration: 5 doses or times, Stop date: Limited # of times Acetaminoph 2021-0 No 1,000 mg, M emoria en 08-29 Route: PO, l 14:01: Drug form: [place] 00 TAB, ONCE, Dosing Weight 97.273, kg, [...] Drug form: l 10 13:15: INJ, Start [place] microgram date: 08/29/20 8:15:00 CDT, Stop date: 08/29/20 9:15:00 CDT norepinephr 2020-0 No Route: IV, Memoria ine (ANES) 08-29 Drug form: l 10 13:15: INJ, Start [place] microgram date: 08/29/20 8:15:00 CDT, Stop date: 08/29/20 9:15:00 CDT norepinephr 2020-0 No Route: IV, Memoria ine (ANES) 08-29 Drug form: l 10 13:15: INJ, Start Marty microgram date: 08/29/20 8:15:00 CDT, Stop date: 08/29/20 9:15:00 CDT norepinephr 2020-0 No Route: IV, Memoria ine (ANES) 08-29 Drug form: l 10 13:15: INJ, Start Matry microgram 00 date: 08/29/20 8:15:00 CDT, Stop date: 08/29/20 9:15:00 CDT norepinephr 2020-0 No Route: IV, Memoria ine (ANES) 08-29 Drug form: l 10 13:15: INJ, Start [place] microgram date: 08/29/20 8:15:00 CDT, Stop date: 08/29/20 9:15:00 CDT Sodium 2021-0 No Route: IV, Memor ia Chloride 4-09 Total l 0.9% IV 12:30: Volume: Marty (ANES) 1000 00 1,000, mL Start date: 08/29/20 7:30:00 CDT, Stop date: 08/29/20 8:30:00 CDT Sodium 2021-0 No Route: IV, Memor ia Chloride 4-09 Total l 0.9% IV 12:30: Volume: [place] (ANES) 1000 00 1,000, mL Start date: 08/29/20 7:30:00 CDT, Stop date: 08/29/20 8:30:00 CDT Sodium 2021-0 No Route: IV, Memor ia Chloride 4-09 Total l 0.9% IV 12:30: Volume: Marty (ANES) 1000 00 1,000, mL Start date: 08/29/20 7:30:00 CDT, Stop date: 08/29/20 8:30:00 CDT Sodium 2021-0 No Route: IV, Memor ia Chloride 4-09 Total l 0.9% IV 12:30: Volume: Matry (ANES) 1000 00 1,000, mL Start date: 08/29/20 7:30:00 CDT, Stop date: 08/29/20 8:30:00 CDT Sodium 2021-0 No Route: IV, Memor ia Chloride 4-09 Total l 0.9% IV 12:30: Volume: Garfield (ANES) 1000 00 1,000, mL Start date: [...] PO, l Hydrochlori 11:42: Q24H, # 30 Garfield de 150 MG 00 tab, 0 Extended [...] 4- Q12H, tab, l Tablet 11:41: 0 Garfield [Eliquis] 00 Refill(s), For Atrial Fibrilatio n apixaban 2020-0 Yes 5 mg, PO, Me moria MG Oral 4-09 Q12H, tab, l Tablet 11:41: 0 Marty [Eliquis] 00 Refill(s), For Atrial Fibrilatio n apixaban 5 0 Yes 5 mg, PO, Me moria MG Oral 4- Q12H, tab, l Tablet 11:41: 0 Garfield [Eliquis] 00 Refill(s), For Atrial Fibrilatio n [...] tab, PO, l tablet 11:38: Daily, # Garfield 00 90 tab, 3 Refill(s) AMIODarone Yes 200 mg = 1 M emoria 200 mg oral 09 tab, PO, l tablet 11:38: Daily, # Garfield 00 90 tab, 3 Refill(s) AMIODarone Yes 200 mg = 1 M emoria 200 mg oral 4-09 tab, PO, l tablet 11:38: Daily, # Marty 00 90 tab, 3 Refill(s) AMIODarone Yes 200 mg = 1 M emoria 200 mg oral -09 tab, PO, l tablet 11:38: Daily, # Garfield 00 90 tab, 3 Refill(s) AMIODarone Yes 200 mg = 1 M emoria 200 mg oral 4-09 tab, PO, l tablet 11:38: Daily, # Garfield 00 90 tab, 3 Refill(s) AMIODarone Yes 200 mg = 1 M emoria 200 mg oral 4-09 tab, PO, l tablet 11:38: Daily, # Garfield 00 90 tab, 3 Refill(s) normal No [...] tablet 00 (two) times a day. DESCOVY 0 Yes 1{tbl} QD Take 1 Method i 200-25 mg 3-[address] tablet 00:00: mouth [facility] 00 daily. l ISENTRESS 2017-0 Yes 400mg Q.5D Take 400 Met hodi 400 mg 3-[address] tablet 00:00: mouth 2 [facility] 00 (two) l times a day. Immunizations Ordered Filled Immunization Date Status Comments [facility] e Immunization Name Name PEG JENKINS-Dawit 2020-07-23 Completed [facility] MRNA VACCINATION 00:00:00 [facility] PFIZER COVID-19 2020-07-02 Completed [facility] MRNA VACCINATION 00:00:00 [facility] Influenza Virus 2017-03-08 Completed Universit y of Vaccine 00:00:00 [facility] Influenza Virus 2017-03-08 Completed Universit y of Vaccine 00:00:00 [facility] Influenza Virus 2017-03-08 Completed Universit y of Vaccine 00:00:00 [facility] Influenza Virus 2017-03-08 Completed Universit y of Vaccine 00:00:00 [facility] Influenza Virus 2017-03-08 Completed Universit y of Vaccine 00:00:00 [facility] Influenza Virus 2014-01-30 Completed Universit y of Vaccine (3+ yrs) 00:00[facility] Pneumococcal 13 2014-01-30 Completed Universit y of Conjugate, PCV13 00:00:00 [facility] dical (Prevnar 13) Branch Influenza Virus 2014-01-30 Completed Universit y of Vaccine (3+ yrs) 00:00:00 [facility] Branch Pneumococcal 13 2014-01-30 Completed Universit y of Conjugate, PCV13 00:00:00 [facility] dical (Prevnar 13) Branch Influenza Virus 2014-01-30 Completed Universit y of Vaccine (3+ yrs) 00:00:00 [facility] Pneumococcal 13 2014-01-30 Completed Universit y of Conjugate, PCV13 00:00:00 [facility] dical (Prevnar 13) Branch Influenza Virus 2014-01-30 Completed Universit y of Vaccine (3+ yrs) 00:00:00 [facility] dical Branch Pneumococcal 13 2014-01-30 Completed Universit y of Conjugate, PCV13 00:00:00 [facility] dical (Prevnar 13) Branch Influenza Virus 2014-01-30 Completed Universit y of Vaccine (3+ yrs) 00:00:00 [facility] dical Branch Pneumococcal 13 2014-01-30 Completed Universit y of Conjugate, PCV13 00:00:00 [facility] dical (Prevnar 13) Branch Pneumococcal 2012-02-16 Completed University o f Polysaccharide, 00:00:00 [place] [facility] PPSV23 (PNEUMOVAX) Branch Influenza Virus 2012-02-16 Completed Universit y of Vaccine 00:00:00 [facility] PPD (TB) 2012-02-16 Completed University of 00:00:00 [facility] Pneumococcal 2012-02-16 Completed University o f Polysaccharide, 00:00:00 [place] [facility] PPSV23 (PNEUMOVAX) Branch Influenza Virus 2012-02-16 Completed Universit y of Vaccine 00:00:00 [facility] PPD (TB) 2012-02-16 Completed University of 00:00:00 [facility] Pneumococcal 2012-02-16 Completed University o f Polysaccharide, 00:00:00 [place] [facility] PPSV23 (PNEUMOVAX) Branch Influenza Virus 2012-02-16 Completed Universit y of Vaccine 00:00:00 [facility] PPD (TB) 2012-02-16 Completed University of 00:00:00 [facility] Pneumococcal 2012-02-16 Completed University o f Polysaccharide, 00:00:00 [place] [facility] PPSV23 (PNEUMOVAX) Branch Influenza Virus 2012-02-16 Completed Universit y of Vaccine 00:00:00 [facility] PPD (TB) 2012-02-16 Completed University of 00:00:00 [facility] Pneumococcal 2012-02-16 Completed University o f Polysaccharide, 00:00:00 [place] [facility] PPSV23 (PNEUMOVAX) Branch Influenza Virus [...] Completed Unive rsity of Dosage 00:00:00 [facility] Hep B, Adol or Pedi 2011-03-17 Completed Unive rsity of Dosage 00:00:00 [facility] Hep B, Adol or Pedi 2011-03-17 Completed Unive rsity of Dosage 00:00:00 [facility] Hep B, Adol or Pedi 2011-03-17 Completed Unive rsity of Dosage 00:00:00 [facility] Hep B, Adol or Pedi 2011-03-17 Completed Unive rsity of Dosage 00:00:00 [facility] Hep B, Adol or Pedi 2011-03-17 Completed [...] 2011-02-10 Completed Universit y of Vaccine 00:00:00 [facility] Hep B, Adol or Pedi 2011-02-10 Completed [...] of VACCINE 00:00:00 [facility] PPD (TB) 2010-11-18 Completed University of 00:00:00 [facility] TDAP (ADACEL) 2010-11-18 Completed University of VACCINE 00:00:00 [facility] PPD (TB) 2010-11-18 Completed University of 00:00:00 [facility] TDAP (ADACEL) 2010-11-18 Completed University of VACCINE 00:00:00 [facility] PPD (TB) 2010-11-18 Completed University of 00:00:00 [facility] TDAP (ADACEL) 2010-11-18 Completed University of VACCINE 00:00:00 [facility] PPD (TB) [...] 2001-10-04 Completed University o f Polysaccharide, 00:00:00 [place] [facility] PPSV23 (PNEUMOVAX) Branch PPD (TB) 2001-10-04 Completed University of 00:00:00 [facility] Pneumococcal 2001-10-04 Completed University o f Polysaccharide, 00:00:00 [place] [facility] PPSV23 (PNEUMOVAX) Branch PPD (TB) 2001-10-04 Completed University of 00:00:00 [facility] Pneumococcal 2001-10-04 Completed University o f Polysaccharide, 00:00:00 [place] [facility] PPSV23 (PNEUMOVAX) Branch PPD (TB) 2001-10-04 Completed University of 00:00:00 [facility] Pneumococcal 2001-10-04 Completed University o f Polysaccharide, 00:00:00 [place] [facility] PPSV23 (PNEUMOVAX) Branch PPD (TB) 2001-10-04 Completed University of 00:00:00 [facility] Pneumococcal 2001-10-04 Completed University o f Polysaccharide, 00:00:00 [place] [facility] PPSV23 (PNEUMOVAX) Branch PPD (TB) 2001-10-04 Completed University 00:00:00 [facility] Vital Signs Vital Name Observation Time Observation Value Comments Source Systolic blood 2021-12-13 06:39:53 170 mm[Hg] Univer sity of pressure [facility] Diastolic blood 2021-12-13 06:39:53 96 mm[Hg] Unive rsity of pressure [facility] Heart rate 2021-12-13 06:39:53 60 /min Universi ty of [facility] Respiratory rate 2021-12-13 06:39:53 18 /min Univ ersity of [facility] Oxygen saturation in 2021-12-13 06:39:53 98 /min University of Arterial blood by [place] [employer] Pulse oximetry Branch Body temperature 2021-12-13 04:57:00 36.56 Amina Univ ersity of [facility] Body height 2021-12-13 04:57:00 162.6 cm Universi ty of [facility] Body weight 2021-12-13 04:57:00 90.719 kg Universi ty of [facility] BMI 2021-12-13 04:57:00 34.33 kg/m2 Universi ty of [facility] Systolic blood 2021-08-21 13:13:00 191 mm[Hg] Univer sity of pressure [facility] Diastolic blood 2021-08-21 13:13:00 99 mm[Hg] Unive rsity of pressure [facility] Heart rate 2021-08-21 13:13:00 52 /min Universi ty of [facility] Body temperature 2021-08-21 13:11:00 36.5 Amina Univ ersity of [facility] Respiratory rate 2021-08-21 13:11:00 16 /min Univ ersity of [facility] Body height 2021-08-21 13:11:00 162.6 cm Universi ty of [facility] Body weight 2021-08-21 13:11:00 93.759 kg Universi ty of [facility] BMI 2021-08-21 13:11:00 35.48 kg/m2 Universi ty of [facility] Oxygen saturation in 2021-08-21 13:11:00 95 /min University of Arterial blood by [place] [employer] Pulse oximetry Branch Systolic blood 2021-07-14 15:18:00 142 mm[facility]Hg[facility] Diastolic blood 2021-07-14 15:18:00 76 mm[Hg] [facility] Heart rate 2021-07-14 15:18:00 61 [facility] Body height 2021-07-14 15:18:00 162.6 cm [facility] 2021-07-14 15:18:00 [facility]802 [facility] BMI 2021-07-14 15:18:00 35.87 [facility] Sy[facility] blood 2020-12-08 15:48:00 125 mm[Hg] Method [facility] pressure Diastolic blood 2020-12-08 15:48:00 76 mm[Hg] [facility] pressure Heart rate 2020-12-08 15:48:00 64 /min [facility] Body temperature 2020-12-08 15:48:00 36.61 Amina [facility] Respiratory rate 2020-12-08 15:48:00 17 /min [facility] Body height 2020-12-08 15:48:00 162.6 cm [facility] Body weight 2020-12-08 15:48:00 98.884 kg [facility] BMI 2020-12-08 15:48:00 37.42 kg/m2 [facility] Oxygen saturation in 2020-12-08 15:48:00 97 /min [facility] Arterial blood by Pulse oximetry Respitory Rate 2020-08-30 13:00:00 Memori al Marty Systolic (mm Hg) 2020-08-30 13:00:00 Caesar rial Marty Diastolic (mm Hg) 2020-08-30 13:00:00 Mem orial Marty Systolic (mm Hg) 2020-08-30 11:00:00 Caesar rial Garfield Diastolic (mm Hg) 2020-08-30 11:00:00 Mem orial Marty Temperature Oral (F) 2020-08-30 11:00:00 98.4 F [facility] Respitory Rate 2020-08-30 11:00:00 Memori al Garfield Respitory Rate 2020-08-30 10:00:00 Memori al Marty Systolic (mm Hg) 2020-08-30 10:00:00 Caesar riamabel Ferguson Diastolic (mm Hg) 2020-08-30 10:00:00 Mem orial Garfield Temperature Oral (F) 2020-08-30 00:00:00 96.9 F Claude Ferguson Temperature Oral (F) 2020-08-29 11:26:00 97.6 F Claude Ferguson Height 2020-08-29 10:30:00 162.56 cm Claude Ferguson Weight 2020-08-29 10:30:00 [facility] Marty BMI Calculated 2020-08-29 10:30:00 Darien Hammond Procedures Procedure Date / Time Performing Clinician Source Performed MEDICATION CORRESPONDENCE 2022-01-06 05:01:00 Doctor Unassigned, [facility] Name [facility] MEDICATION CORRESPONDENCE 2021-12-25 05:01:00 Doctor Unassigned, [facility] Name [facility] CT CERVICAL SPINE WO 2021-12-13 05:48:16 Bill Guo [facility] CONTRAST [facility] CT HEAD WO CONTRAST 2021-12-13 05:48:16 Bill Guo [facility] CT LUMBAR SPINE WO 2021-12-13 05:48:16 Bill Guo [facility] CONTRAST [facility] CT THORACIC SPINE WO 2021-12-13 05:48:16 Bill Guo [facility] CONTRAST [facility] ECG 12-LEAD 2021-07-14 15:14:[address] [facility] [id number] 2021-06-17 00:00:00 GRACEA [facility] GASTROINTESTINAL PANEL 2020-12-08 22:21:00 Eliseo Arce [facility] XR ABDOMEN 1 VW 2020-12-08 18:06:32 Eliseo Arce spital OR [place] < 1 HOUR 2020-09-05 22:39:00 Eliseo Arce spital SURGICAL PATHOLOGY REQUEST 2020-09-05 21:54:00 Eliseo Arce [facility] XR CHEST 1 VW PORTABLE 2020-09-05 19:55:00 Eliseo Arce [facility] DISCHARGE PATIENT 2020-09-05 17:27:55 Lucas Harris [facility] [place] AN ELECTIVE 2020-09-05 16:47:23 Kirit Flood V. [facility] ENDOTRACHEAL AIRWAY EGD, INTRAOPERATIVE 2020-09-05 16:27:00 Eliseo Arce [facility] PARTIAL THROMBOPLASTIN 2020-09-05 15:04:00 Sarai Maharaj [facility] TIME (PTT) M. PROTHROMBIN TIME WITH INR 2020-09-05 15:04:00 Mindy Maharaj [facility] M. Plan of Care Planned Activity Planned Date Details Comments Source Future Scheduled 2021-08-26 Screening for [facility] Test 13:02:23 malignant neoplasm of cervix (procedure) [code = 715091703] Future Scheduled 2021-08-26 BREAST CANCER [facility] Test 13:02:23 SCREENING [code = BREAST CANCER SCREENING] Future Scheduled 2021-08-26 COLONOSCOPY SCREENING [facility] Test 13:02:23 [code = COLONOSCOPY SCREENING] Future Scheduled 2021-08-26 Screening for [facility] Test 13:02:23 malignant neoplasm of lung (procedure) [code = 814745698] Future Scheduled 2021-08-26 SHINGLES VACCINES (#1) [facility] Test 13:02:23 [code = SHINGLES VACCINES (#1)] Future Scheduled 2021-08-26 COVID-19 VACCINE (3 - [facility] Test 13:02:23 Pfizer risk 4-dose series) [code = COVID-19 VACCINE (3 - Pfizer risk 4-dose series)] Future Scheduled 2021-08-26 65+ PNEUMOCOCCAL [facility] Test 13:02:23 VACCINE (4 of 4 - PPSV23) [code = 65+ PNEUMOCOCCAL VACCINE (4 of 4 - PPSV23)] Future Scheduled 2021-08-26 INFLUENZA VACCINE [facility] Test 13:02:23 [code = INFLUENZA VACCINE] Encounters Start End Encounter Admission Attending Care Care Encounter Source Date/Time Date/Time Type Type Clinicians Facility Department ID 2021-11-16 Outpatient [facility] [id number] [place] 10:32:47 [id number] Health 2021-08-03 Inpatient WINTER Lund RUST [id number] [facility] 11:30:00 Mike [id number] [facility] 2021-07-14 Outpatient JENNY [facility] [id number] [place] 09:33:51 [facility] 2021-06-16 Inpatient WINTER Leal OUTD [id number] [facility] 08:30:00 Mike [id number] [facility] 2021-06-15 Inpatient WINTER Leal OUTD [id number] [facility] 10:30:00 Mike [id number] [facility] 2022-02-26 2022-02-26 Outpatient [facility] [id number] Univers 08:30:00 08:30:[id number] [facility] 2022-02-26 2022-02-26 Outpatient [facility] [id number] Univers 08:30:00 08:30:[address] [facility] 2022-01-06 2022-01-06 Orders Doctor CHRISTENSEN [id number] Univers 00:00:00 00:00:00 Only Unassigned, JACKELINE [id number] ity of [place] [facility] 4.2.7.2.686 Yomi as [id number] [facility] 00[address] [place] 2021-12-25 2021-12-25 Orders Doctor FERMIN 1.2.840.114 [id number] Univers 00:00:00 00:00:00 Only Unassigned, JACKELINE 350.1.13.10 ity of [place] [facility] 4.2.7.2.686 Yomi as [id number] [facility] 009 Branch 2021-12-12 2021-12-13 Emergency X Bill GUO [facility] ERT [id number] Univers 23:53:00 01:52:00 ity of [facility] 2021-12-12 2021-12-13 Emergency Bill Guo [facility] 1.2.840.114 [id number] Univers 23:53:00 01:52:00 Kiersten BULLOCK 350.1.13.10 i ty [facility] [place] [id number] [facility] 084 Branch 2021-11-20 2021-11-20 Neurology Hospitalist [facility] UNIVERSIT 1.2.840.114 [id number] Univers 09:45:00 10:00:00 Visit Santiago Cardenas [facility] [id number] ity of [place] [id number] [facility] 316 Branch 2021-11-20 2021-11-20 Outpatient R KEZIA [facility] [id number] Univers 09:45:00 09:45:[address] [facility] 2021-11-20 2021-11-20 Outpatient [facility] [id number] Univers 09:45:00 09:45:[id number] [facility] 2021-08-21 2021-08-21 Office FRANCO Cardenas [id number] Univers 08:30:00 09:00:[address] [facility] 350.1.13.10 i ty [place] [id number] [facility] 089 Branch 2021-08-05 2021-08-05 Outpatient WINTER LealCL [id number] [facility] 05:24:00 05:24:00 Mike 31 [facility] 2021-08-05 2021-08-05 Outpatient WINTER Leal OUTD [id number] [facility] 05:24:00 05:24:00 Mike [id number] [facility] 2021-07-14 2021-07-14 Office KIMBERLEY Lira 6400 1.2.840.114 [id number] [place] 08:45:00 09:34:[address] 350.1.13.58 Health 9.2.7.2.686 [id number] 1 2021-07-09 2021-07-09 Telephone Ap, UTP 6400 1.2.840.114 [id number] [place] 00:00:00 00:00:[address] 350.1.13.58 Health 9.2.7.2.686 [id number] 1 2021-06-17 2021-06-17 Inpatient WINTER Leal INTE.02 [id number] [facility] 10:56:00 14:36:00 Mike [id number] [facility] 2021-06-17 2021-06-17 Inpatient EDUARDO LealCL INTE.02 [id number] [facility] 10:56:00 14:36:00 Mike 47 [facility] 2021-04-28 2021-04-28 Telephone Jailyn, 1.2.840.4 [id number] Methodi 00:00:00 00:00:[address] 3.430.2.7 Hospit a .3.522888 l .8 2021-03-31 2021-03-31 Orders Carol Ann, 1.2.840.1 [id number] Methodi 00:00:00 00:00:00 Only Sarai Lieberman 57283.1.1 979 s t 3.430.2.7 Hospit a .3.199869 l .8 2021-03-24 2021-03-24 Telephone Jailyn, 1.2.840.2 [id number] Methodi 00:00:00 00:00:[address] 3.430.2.7 Hospit a .3.279244 l .8 2021-01-19 2021-01-19 Telephone Prabhu, 1.2.840.1 [id number] [id number] Methodi 00:00:00 00:00:[address] 3.430.2.7 Hospit a .3.264576 l .8 2020-12-12 2020-12-12 Office Hematpour, UTP 6400 1.2.840.114 [id number] 07:42:02 08:18:[address] 350.1.13.58 9.2.7.2.686 [id number] 1 2020-12-09 2020-12-09 Telephone Carol Ann, 1.2.840.1 [id number] Methodi 00:00:00 00:00:00 Sarai Lieberman 77868.1.1 316 s t 3.430.2.7 Hospit a .3.467674 l .8 2020-12-08 2020-12-08 [facility], 1.2.840.1 [id number] [id number] Methodi 12:35:54 23:59:00 Encounter Ray 24831.1.[address] 3.430.2.7 Hospit a .3.953108 l .8 2020-12-08 2020-12-08 Lab [facility], 1.2.840.1 [id number] Methodi 17:25:00 17:30:[address] 3.430.2.7 Hospit a .3.515553 l .8 2020-12-08 2020-12-08 Office [facility], 1.2.840.1 [id number] Methodi 10:30:00 11:39:56 Visit Ray 73457.1.[address] 3.430.2.7 Hospit a .3.334465 l .8 2020-12-08 2020-12-08 Travel 1.2.840.1 1.2.073.750 [id number] Methodi 00:00:00 00:00:[address] 3.430.2.7 0.2.7.3.698 Ho spita .3.672061 084.8 l .8 2020-12-02 2020-12-02 Neurology Hospitalist [facility] 1.2.840.114 [id number] 10:20:06 10:36:19 Visit HEALTH 350.1.13.10 CLINICS 4.2.7.2.686 [id number] 2020-11-25 2020-11-25 Office Devin [facility] 1.2.840.114 [id number] 11:06:30 11:58:14 Visit Robbi Hairston [employer] 350.1.13.10 [facility] 4.2.7.2.686 MATERNAL [id number] & CHILD [address] [place] [address] 2020-11-25 2020-11-25 [facility] 1.2.899.818 [id number] 00:00:00 00:00:[address] [facility] [address] [facility] 4.2.7.2.686 [id number] 2020-11-25 2020-11-25 Telephone Beltran [facility] 1.2.115.191 [id number] 00:00:00 00:00:00 Robbi Hairston [employer] 350.1.13.10 [facility] 4.2.7.2.686 MATERNAL [id number] & CHILD [address] [place] [address] 2020-11-14 2020-11-14 Abstract Clark, 1.2.840.1 [id number] Methodi 00:00:00 00:00:[address] 3.430.2.7 Hospit a .3.060994 l .8 2020-11-14 2020-11-14 Telephone Clark, 1.2.840.1 [id number] [id number] Methodi 00:00:00 00:00:[address] 3.430.2.7 Hospit a .3.038758 l .8 2020-11-07 2020-11-07 Telephone KIMBERLEY Ortiz 6400 1.2.840.114 [id number] 00:00:00 00:00:[address] 350.1.13.58 9.2.7.2.686 [id number] 1 2020-10-27 2020-10-27 Telephone Jailyn 1.2.840.6 [id number] Methodi 00:00:00 00:00:[address] 3.430.2.7 Hospit a .3.748297 l .8 2020-10-24 2020-10-24 Telephone Clark, 1.2.840.1 [id number] [id number] Methodi 00:00:00 00:00:[address] 3.430.2.7 Hospit a .3.810837 l .8 2020-10-06 2020-10-12 Telemedici [facility], 1.2.840.1 [id number] Methodi 15:30:00 00:08:46 ne Ray [address]8460.1.[address] 3.430.2.7 Hospit a .3.672856 l .8 2020-09-30 2020-09-30 [facility], 1.2.840.0 [id number] Methodi 00:00:00 00:00:[address] 3.430.2.7 Hospit a .3.023811 l .8 2020-09-21 2020-09-21 Travel 1.2.840.1 1.2.338.187 [id number] Methodi 00:00:00 00:00:[address] 3.430.2.7 0.2.7.3.698 spita .3.120442 084.8 l .8 2020-09-06 2020-09-06 [facility] 1.2.840.1 [id number] Methodi 17:42:30 23:59:[address] 3.430.2.7 Hospit a .3.470747 l .8 2020-09-06 2020-09-06 [facility], 1.2.840.1 [id number] Methodi 16:50:00 17:41:00 Encounter Ray [address]897.1.[address] 3.430.2.7 Hospit a .3.804955 l .8 2020-09-05 2020-09-05 [facility], 1.2.840.1 [id number] Methodi 09:17:00 19:45:00 Encounter Ray 61732.1.[address] 3.430.2.7 Hospit a .3.861536 l .8 2020-09-05 2020-09-05 [facility], 1.2.840.1 [id number] Methodi 11:30:00 13:15:[address] 3.430.2.7 Hospit a .3.525259 l .8 2020-09-05 2020-09-05 Anesthesia Remigio, 1.2.840.1 [id number] [id number] Methodi 11:27:00 12:20:00 Event Kirit 33750.1.1 243 s t V. 3.430.2.7 Hospit a .3.153106 l .8 2020-09-05 2020-09-05 Travel 1.2.840.1 1.2.678.776 [id number] Methodi 00:00:00 00:00:[address] 3.430.2.7 0.2.7.3.698 Ho spita .3.009961 084.8 l .8 2020-09-04 2020-09-04 Telephone [place], 1.2.840.1 [id number] Methodi 00:00:00 00:00:00 Sarai M. 16874.1.1 762 s t 3.430.2.7 Hospit a .3.472399 l .8 2020-09-02 2020-09-02 Telephone [place], 1.2.840.5 [id number] Methodi 00:00:00 00:00:00 Sarai M. 96003.1.1 344 s t 3.430.2.7 Hospit a .3.842806 l .8 2020-08-29 2020-08-[id number] 10:20:00 14:10:00 Outpatient r [place] 00 l [facility] 2020-08-29 2020-08-30 Outpatient [facility], [facility] [address] [facility] 05:20:00 09:10:00 [place] Results Test Description Test Time Test Comments Results Result Comments Source Novel Coronavirus 2019 Inhouse 2021-08-03 18:08:00 Test Item Value Reference Range Interpretation Comme nts Novel Coronavirus 2019 Negative Negative Posit bruno results are indicative of the Inhouse (test code = presenc e [id number]-5 RNA, clinical COVNONPUI) correlation wit h patient [...] qualitative detection of nucleic acid s from [id number]-YzV-5 virus and diagn osis of SARS-CoV-2 virusinfection. It is an Emergency Use Authorization ( EUA) testauthorized by the U.S. FDA. BASIC METABOLIC [id number] 09:37:00 Test Item Value Reference Range Interpretation [...] = 9.0 mg/dL 8.0-10.5 N CA) PROTHROMBIN [id number] 09:32:00 Test Item Value Reference Range Interpretation Comments PROTHROMBIN TIME 12.7 SECONDS 9.3-12.9 N PATIENT (test code = PTP) INTERNATIONAL NORMAL 1.1 0.8-1.2 N TARGE T INR BY RATIO (test code = INDICATIO [...] (to prevent recurrent infar ct). 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 [facility] - XR CHEST 1 H2620-04-48 00:00:00 [facility]: LIO WATTS : 1955 Sex: F FAX: Carmenza Olivera DO [phone] [place]: St: ADM FAX: Mike Scales MD [phone] FAX: Bahman Chopra [phone] Name: LIO WATTS [facility] : 1955 Age/S: 66/F [address] [place] [address] Unit #: [id number] Loc: [place] [address] Phys: Bahman Chopra [facility] Acct: [id number] Dis Date: Status: ADM IN PHONE #: [phone] Exam Date: 06/17/2021 1320 FAX #: [phone] Reason: WATCHMAN EXAMS: CPT CODE: [id number] XR CHEST 1 V 84481 PROCEDURE INFORMATION: Exam: XR Chest Exam date [...] Chopra Technologist: RT Taylor(R) Trnscrd Date/Time/By: 06/17/2021 (6040) : By: [email or web address] Orig Print D/T: S: 06/17/2021 (3834) PAGE 1 Signed ReportCOVID 19 Asymptomatic IH [...] high or waivedcomplexit y tests. BASIC METABOLIC [id number] 11:37:00 Test Item Value Reference Range Interpretation [...] code = 9.0 mg/dL 8.0-10.5 N CA) PBJKQWOVRL4904-02-43 11:37:00 Test Item Value Reference Range Interpretation Comments PREALBUMIN (test code = PREALB) 24.3 mg/dL 16.0-40.0 N PROTHROMBIN [id number] 11:03:00 Test Item Value Reference Range Interpretation [...] (to prevent recurrent infar ct). CBC W/AUTO [id number] 10:59:00 Test Item Value Reference Range Interpretation [...] 0.0-0.1 N NRBC#) - XR CHEST 2 [id number] 00:00:00 [facility] 1955 Sex: F FAX: RobinUrimlaBibiana DanielFrancisco H [phone] [place]: St: PRE FAX: Mike Scales MD [phone] Name: LIO WATTS [facility] [place] : 1955 Age/S: 66/F [address] [place] [address] Unit #: [id number] Loc: [place] [address] Phys: Mike Lund MD Acct: [id number] Dis Date: Status: PRE [facility] PHONE #: [phone] Exam Date: 06/16/2021 1120 FAX #: [phone] Reason: PREOP EXAMS: CPT CODE: [id number] XR CHEST 2 V 93235 PROCEDURE INFORMATION: Exam: XR Chest Exam date and time: 06/16/2021 10:52 AM Age: 66 years old Clinical indication: Pre-operative exam; Respiratory screening exam; Additional info: Preop TECHNIQUE: Imagingprotocol: XR of the chest. Views: 2 views. PA and Lateral COMPARISON: No relevant prior studies available. FINDINGS: Lungs: No consolidation. Pleural spaces: No pleural effusion. Heart/Mediastinum: Heart is borderline in size.There is atherosclerotic calcification of the aorta. Bilateral shoulder hardware is partially seen. Bones/joints: No gross acute findings. IMPRESSION: No acute cardiopulmonary findings at 1134 Reported andsigned by: Selene Collins D.O. CC: Carmenza Rahman DO; Mike Lund MD Technologist: Danielle Nix RT(R) Trnscrd Date/Time/By: 06/16/2021 (4258) : By: [email or web address] Orig Print D/T: S: 06/16/2021 (8278) PAGE 1 Signed ReportGastrointestinal [id number] 04:35:05 Test Item Value Reference Interpretation Comments [...] Rotavirus PCR (test Not Detected code = 7257021) Salmonella PCR (test Not Detected code = [...] Not Detected (test code = 7124) [facility] rfbzofi3201-86-13 19:30:47 Test Item Value Reference Range Interpretation Comments Case number (test [id number] code = 1379590) Surgical pathology See link below for PDF report (test code = Lab Report 2255) Result status (test This is Supplemental code = 5168704) Report for [id number] [facility]2021-04-09 16:31:00 Test Item Value Reference Range Interpretation Comments POC Activated Clotting Time (test code 153 s = POC Activated Clotting Time) [facility] CenterDlqcjywIAPBYAESRG4983-80-66 16:31:00 Test Item Value Reference Range Interpretation Comments POC Activated Clotting Time (test code 153 s = POC Activated Clotting Time) [facility] CenterZdcltmgKNAJPMEZIK9818-67-02 16:31:00 Test Item Value Reference Range Interpretation Comments POC Activated Clotting Time (test code 153 s = POC Activated Clotting Time) [facility] CenterYrrozkdVJDLQBBZAZ5737-74-30 16:31:00 Test Item Value Reference Range Interpretation Comments POC Activated Clotting Time (test code 153 s = POC Activated Clotting Time) [facility] CenterJpsxexuABSVJIAFBR1620-01-89 16:31:00 Test Item Value Reference Range Interpretation Comments POC Activated Clotting Time (test code 153 s = POC Activated Clotting Time) [facility] CenterXxlcnheMLOXSUMUFH3461-16-59 16:31:00 Test Item Value Reference Range Interpretation Comments POC Activated Clotting Time (test code 153 s = POC Activated Clotting Time) [facility] CenterQwxiivfQIZDXSJEJM7949-62-62 16:31:00 Test Item Value Reference Range Interpretation Comments POC Activated Clotting Time (test code 153 s = POC Activated Clotting Time) [facility] CenterBuldpouOYDQQJDTNY7169-70-21 14:37:00 Test Item Value Reference Range Interpretation Comments POC Activated Clotting Time (test code 454 s = POC Activated Clotting Time) [facility] CenterZdqfkrvROIHNBMHYJ1400-50-33 14:37:00 Test Item Value Reference Range Interpretation Comments POC Activated Clotting Time (test code 454 s = POC Activated Clotting Time) [facility] CenterJxrqdjmHVOCPPEACC4045-49-01 14:37:00 Test Item Value Reference Range Interpretation Comments POC Activated Clotting Time (test code 454 s = POC Activated Clotting Time) [facility] CenterMgzhpdbVLKTOIFSVH0816-17-63 14:37:00 Test Item Value Reference Range Interpretation Comments POC Activated Clotting Time (test code 454 s = POC Activated Clotting Time) [facility] CenterZqgsfpmYAVOCIMYZV5399-32-85 14:37:00 Test Item Value Reference Range Interpretation Comments POC Activated Clotting Time (test code 454 s = POC Activated Clotting Time) [facility] CenterXxieqyfEQNPEPXUFE5137-01-95 14:37:00 Test Item Value Reference Range Interpretation Comments POC Activated Clotting Time (test code 454 s = POC Activated Clotting Time) [facility] CenterIgjttinFIMZBTAWBI8874-68-79 14:37:00 Test Item Value Reference Range Interpretation Comments POC Activated Clotting Time (test code 454 s = POC Activated Clotting Time) [facility] CenterBcrdqreSKJRNXROVV4719-04-88 14:13:00 Test Item Value Reference Range Interpretation Comments POC Activated Clotting Time (test code 354 s = POC Activated Clotting Time) [facility] CenterJhpbajrHZSVOLMVCV1168-68-45 14:13:00 Test Item Value Reference Range Interpretation Comments POC Activated Clotting Time (test code 354 s = POC Activated Clotting Time) [facility] CenterJgqlbsjERYYTSAQNL4637-79-26 14:13:00 Test Item Value Reference Range Interpretation Comments POC Activated Clotting Time (test code 354 s = POC Activated Clotting Time) [facility] CenterOdxcxtvVNFCAHYMLP3742-20-82 14:13:00 Test Item Value Reference Range Interpretation Comments POC Activated Clotting Time (test code 354 s = POC Activated Clotting Time) [facility] CenterBmdkujsJVYVWPISIU9482-78-42 14:13:00 Test Item Value Reference Range Interpretation Comments POC Activated Clotting Time (test code 354 s = POC Activated Clotting Time) [facility] CenterLfuurbbNSSWKJYNBH7198-07-40 14:13:00 Test Item Value Reference Range Interpretation Comments POC Activated Clotting Time (test code 354 s = POC Activated Clotting Time) [facility] CenterYpkidclKDXEBNWDLG6474-00-28 14:13:00 Test Item Value Reference Range Interpretation Comments POC Activated Clotting Time (test code 354 s = POC Activated Clotting Time) [facility] SNGKQCD3148-63-91 10:37:00Negative (4/9/21 5:37 AM) [facility] TSFGO3637-07-21 10:37:40509Kpyfucmz HermannCHEM PANEL 2020-08-29 10:37:0028[facility]annCHEM KYOBF9189-14-63 10:37:001.01[facility]annCHE[facility] YHNIR2945-13-59 10:37:30321Lixqufxq [facility]annCHEM ZQGIB9472-10-27 10:37:003.8[facility]annCHEM CFULJ3656-01-89 10:37:99001Pmducrhw [facility]annCHE[facility] ZIWNC1567-61-23 10:37:0028[facility]annCHEM EYVEE8246-77-04 10:37:009.8 [facility]annCHE[facility] QCEUG6217-05-57 10:37:0011.8[facility]annCHEM PANEL 2020-08-29 10:37:0059[facility] HermannCHEM DWSCO6007-79-96 10:37:002.9[facility] PusyjceAJPOWHOFPI3271-91-09 10:37:006.8[facility] PmjgdgbJCKJZLYYUX3466-29-43 10:37:004.47[facility] NiseqwdWAAPFEVIOZ7153-17-41 10:37:0010.6[facility] NOLWLPEAJQ1326-82-94 10:37:0034.0[facility] PjpoinrJTXGIPMFIZ9011-55-00 10:37:00 76.1[facility] HqxuiihVYNPBJWTJZ0619-96-40 10:37:00 Test Item Value Reference Range Interpretation Comments MCH (test code = MCH) 23.8 pg 27.0-31.0 [facility] VomvjgrFSAGROEJDD4921-00-63 10:37:0031.3[facility] HermannHEMATOLOGY 2020-08-29 10:37:0018.2[facility] IhkuefqAZGHMYECDT7866-82-27 10:37:29597Qdnlixzt IebjzjlBYHDXLXUOC6626-96-37 10:37:007.5[facility] XhuyrirOAFHCYWALL9286-01-37 10:37:00 Test Item Value Reference Range Interpretation Comments PT (test code = PT) 12.8 s 12.0-14.7 [facility] DinagqvVQQHVUSPKT6084-27-93 10:37:00 Test Item Value Reference Range Interpretation Comments INR (test code = INR) 0.97 1 0.85-1.17 [facility] TrmyghuLHOHJOEQAX3290-22-28 10:37:00 Test Item Value Reference Range Interpretation Comments PTT (test code = PTT) 25.0 s 22.9-35.8 [facility] BftmlzuRVSTRIMCIH7075-98-81 10:37:0070.5[facility] HermannHEMATOLOGY 2020-08-29 10:37:0018.8[facility] JezoywjWYFPLOBXZR1513-86-44 10:37:009.5[facility] ImfnuvqSHHCYYYRRY6923-37-18 10:37:000.9[facility] BksgocvAXZUFXTNEF0573-65-65 10:37:000.3[facility] McwlhhtHUOPCGYAIT8409-20-80 10:37:004.8[facility] NGVENCMYQC4237-17-41 10:37:001.3[facility] RfxtmabPJZHAXHRAB2100-26-56 10:37:000.6 [facility] BddhwakDEVINPMIQN7409-60-48 10:37:000.1[facility]annHEMATOLOGY 2020-08-29 10:37:001+ *ABN*(08/29/20 5:37 AM)[facility] FqjwcjdZOENBOYUMM0899-18-49 10:37:00Not Detected (08/29/20 5:37 AM)[facility] HermannBLOOD BANK RESULTS 2020-08-29 10:37:00Negative (08/29/20 5:37 AM)[facility]annCHEM YGSXT0723-76-59 10:37:91756Mtrkjvll HermannCHEM WPGLZ8342-20-20 10:37:0028[facility] HermannCHEM MWOND3685-97-31 10:37:001.01[facility] HermannCHEM YKLET1701-03-25 10:37:90077 [facility]annCHE[facility] LXVWD5979-07-28 10:37:003.8[facility] HermannCHEM PANEL 2020-08-29 10:37:25608Cuijxuqc HermannCHEM RIXKD2818-38-93 10:37:0028[facility]annCHEM DEFCN6455-74-12 10:37:009.8[facility]annCHE[facility] TEBMQ9923-26-09 10:37:0011.8[facility]annCHEM USWUX5278-06-61 10:37:0059[facility]annCHEM VBTIJ0660-66-62 10:37:002.9[facility] GzeufmuZZKCIYSWNM3182-37-18 10:37:006.8 [facility] KwabeooCLIHMZSBJL3342-36-47 10:37:004.47[facility] HermannHEMATOLOGY 2020-08-29 10:37:0010.6[facility] GtocwgfAIOIUFFLOO7585-38-35 10:37:0034.0[facility] KrzonleJBCOPZDSRP5625-45-19 10:37:0076.1[facility] NnswhuiIQAGIIQIJY3841-86-80 10:37:00 Test Item Value Reference Range Interpretation Comments MCH (test code = MCH) 23.8 pg 27.0-31.0 [facility] KmdadubUHOONJKRNA5861-48-74 10:37:0031.3[facility] HermannHEMATOLOGY 2020-08-29 10:37:0018.2[facility] KjevryqZTEPRKYUYA1920-66-31 10:37:33067Knjteawq TfnyyrpEVNFHDSGQB4102-65-41 10:37:007.5[facility] NowelziLEKZTRBEGX3233-49-05 10:37:00 Test Item Value Reference Range Interpretation Comments PT (test code = PT) 12.8 s 12.0-14.7 [facility] TiuhhaqDFCDTWIVYQ5276-62-83 10:37:00 Test Item Value Reference Range Interpretation Comments INR (test code = INR) 0.97 1 0.85-1.17 [facility] LgkixjvYJYTYZPMFI4819-43-97 10:37:00 Test Item Value Reference Range Interpretation Comments PTT (test code = PTT) 25.0 s 22.9-35.8 [facility] NqqvapfMVTCYWGTCD5712-44-33 10:37:0070.5[facility] HermannHEMATOLOGY 2020-08-29 10:37:0018.8[facility] UikfttzFWDWZBGYLT9863-69-41 10:37:009.5[facility] IjahatyBQQJMCVIHL4101-96-71 10:37:000.9[facility] YfzirgmJAZCMCYXLP3549-32-24 10:37:000.3[facility] UhfzoszQXWAQEPMEJ8748-05-44 10:37:004.8[facility] EVCPYJWASZ6532-75-80 10:37:001.3[facility] DoumusvGEXEOINBPB5017-56-45 10:37:000.6 [facility] RxkxpmkMEVEFCHOUB4199-16-56 10:37:000.1[facility] HermannHEMATOLOGY 2020-08-29 10:37:001+ *ABN*(08/29/20 5:37 AM)[facility] LoghxhfXLHKFNFDRR7509-39-69 10:37:00Not Detected (08/29/20 5:37 AM)[facility] HermannBLOOD BANK RESULTS 2020-08-29 10:37:00Negative (08/29/20 5:37 AM)[facility]annCHEM XTCWU9728-25-45 10:37:36536Kmkybows HermannCHEM NWCHV9400-59-71 10:37:0028[facility]annCHEM EIMEF1594-17-55 10:37:001.01[facility] HermannCHEM IGIFU8215-67-26 10:37:18259 [facility]annCHE[facility] VWCFU2511-38-16 10:37:003.8[facility] HermannCHEM PANEL 2020-08-29 10:37:46695Thkfouyd HermannCHEM GPTUN0663-56-09 10:37:0028[facility] HermannCHEM QCCJG9821-37-96 10:37:009.8[facility] HermannCHEM MPLRA6161-44-23 10:37:0011.8[facility] HermannCHEM QGTHN2199-11-69 10:37:0059[facility] HermannCHEM EFQIQ5155-81-53 10:37:002.9[facility] JhtderlLUDNLDXDVB6690-85-43 10:37:006.8 [facility] BwxsmleODBASFRZFI9739-13-69 10:37:004.47[facility] HermannHEMATOLOGY 2020-08-29 10:37:0010.6[facility] AdqoqykYJBNQKSQBX8631-66-20 10:37:0034.0[facility] BokoyfjWKDFROHFQC1916-37-13 10:37:0076.1[facility] MifdixeRSCOIZZJHY0571-72-63 10:37:00 Test Item Value Reference Range Interpretation Comments MCH (test code = MCH) 23.8 pg 27.0-31.0 [facility] XpngnlbVPXVROGUKH2625-18-91 10:37:0031.3[facility] HermannHEMATOLOGY 2020-08-29 10:37:0018.2[facility] LzlfhxgSMBVSBBZWM2430-62-90 10:37:15551Ppolgovu PhdoomrLQWTVMIZIO3247-11-88 10:37:007.5[facility] TpimnitJHFBMQFVLU1917-49-40 10:37:00 Test Item Value Reference Range Interpretation Comments PT (test code = PT) 12.8 s 12.0-14.7 [facility] DbcarfyVIBRHALYBP0280-13-50 10:37:00 Test Item Value Reference Range Interpretation Comments INR (test code = INR) 0.97 1 0.85-1.17 [facility] BhdpggjRLWXPQAWXK2079-00-68 10:37:00 Test Item Value Reference Range Interpretation Comments PTT (test code = PTT) 25.0 s 22.9-35.8 [facility] RixlzapFDOKAELRIT3146-45-87 10:37:0070.5[facility] HermannHEMATOLOGY 2020-08-29 10:37:0018.8[facility] TvrfwfvQRNIJJSYBE0010-15-18 10:37:009.5[facility] LlwwzmyDVMASXAMWK1415-60-92 10:37:000.9[facility] GoufpfmQCDNCUDCIT3333-36-10 10:37:000.3[facility] IixtqfdWUEIXWBOHK8132-51-83 10:37:004.8[facility] VGWSNIHXWO7533-14-26 10:37:001.3[facility] LrmfuptQBDHOEXNHJ9180-54-97 10:37:000.6 [facility] MkstrqwXRFXIBQQPE5312-89-64 10:37:000.1[facility] HermannHEMATOLOGY 2020-08-29 10:37:001+ *ABN*(08/29/20 5:37 AM)[facility] AbwjflfOCIDPTYZJS8393-42-35 10:37:00Not Detected (08/29/20 5:37 AM)[facility] HermannBLOOD BANK RESULTS 2020-08-29 10:37:00Negative (08/29/20 5:37 AM)[facility]annCHEM FRLEF3047-28-65 10:37:29016Dhfslmze HermannCHEM FLQPX1867-89-02 10:37:0028[facility] HermannCHEM QWXPU4316-99-48 10:37:001.01[facility] HermannCHEM ISVFC6292-45-28 10:37:36310 [facility]annCHEM ZZARW1716-67-16 10:37:003.8[facility] HermannCHEM PANEL 2020-08-29 10:37:52435Ugtizmqi HermannCHEM FVPPP7369-59-62 10:37:0028[facility] HermannCHEM IIHDQ4905-73-18 10:37:009.8[facility] HermannCHEM GGRHQ1492-16-96 10:37:0011.8[facility] HermannCHEM KECPC6719-91-33 10:37:0059[facility] HermannCHEM ATFGO3832-59-76 10:37:002.9[facility] FchdsmsAGDRCPGDER3306-08-16 10:37:006.8 [facility] ThxqkctFCVDVBXKAI3983-35-13 10:37:004.47[facility] HermannHEMATOLOGY 2020-08-29 10:37:0010.6[facility] DubnrpeETDQVFRQAM8835-86-50 10:37:0034.0[facility] UbnoxauFMNWUVNEJY4892-47-79 10:37:0076.1[facility] WogyospBYQJPCWTEZ2254-63-41 10:37:00 Test Item Value Reference Range Interpretation Comments MCH (test code = MCH) 23.8 pg 27.0-31.0 [facility] GbiqkcgXFSDEDEJUK5417-11-06 10:37:0031.3[facility] HermannHEMATOLOGY 2020-08-29 10:37:0018.2[facility] JfdjvwePVXPDXADQI3686-98-38 10:37:13710Wwmjayym XwdidtrJRTVMDDONP5660-84-50 10:37:007.5[facility] NbrrtzqROSIWHOWPA3492-81-56 10:37:00 Test Item Value Reference Range Interpretation Comments PT (test code = PT) 12.8 s 12.0-14.7 [facility] NdpioyoJXYYWNCJST1608-97-59 10:37:00 Test Item Value Reference Range Interpretation Comments INR (test code = INR) 0.97 1 0.85-1.17 [facility] MehisqaRBQUHUAGQY0279-92-86 10:37:00 Test Item Value Reference Range Interpretation Comments PTT (test code = PTT) 25.0 s 22.9-35.8 [facility] XbmxiwvTIOLZKQKMD5247-36-38 10:37:0070.5[facility] HermannHEMATOLOGY 2020-08-29 10:37:0018.8[facility] MhplfkzLBCEXSQTFK8237-40-87 10:37:009.5[facility] AsalarjDRXXZOCUCX4415-07-47 10:37:000.9[facility] VxulkpgMKHCSEPXAI0323-92-92 10:37:000.3[facility] HhpowwqFCMNVPONAE2985-66-96 10:37:004.8[facility] OOMGOPYLLP4063-84-38 10:37:001.3[facility] NeqiwpbADQFHFNRXL2281-49-49 10:37:000.6 [facility] OcwfqneFPJLKOSVCA8291-15-13 10:37:000.1[facility] HermannHEMATOLOGY 2020-08-29 10:37:001+ *ABN*(08/29/20 5:37 AM)[facility] BkmtglvOICTSIYBRO5388-76-31 10:37:00Not Detected (08/29/20 5:37 AM)[facility] HermannBLOOD BANK RESULTS 2020-08-29 10:37:00Negative (08/29/20 5:37 AM)[facility]annCHEM QXOLG4631-37-28 10:37:25835Hldkrrab HermannCHEM VIABY3158-26-84 10:37:0028[facility] HermannCHEM JQPQY9489-48-70 10:37:001.01[facility] HermannCHEM XOMTZ9363-66-37 10:37:57415 [facility]annCHE[facility] UJILB6354-96-24 10:37:003.8[facility] HermannCHEM PANEL 2020-08-29 10:37:64682Fspewpyw [facility]annCHEM SJNPN8942-13-36 10:37:0028[facility] HermannCHEM OEUYN9954-65-48 10:37:009.8[facility] HermannCHEM MDYNV8745-61-32 10:37:0011.8[facility] HermannCHEM WLBLV1065-44-36 10:37:0059[facility] HermannCHEM YULLK9914-97-29 10:37:002.9[facility] YhxifseAJWIUIPTLQ0793-60-98 10:37:006.8 [facility] GmcqtzpMTCSSKOJGJ9611-84-66 10:37:004.47[facility] HermannHEMATOLOGY 2020-08-29 10:37:0010.6[facility] OkfjgvaYAJMSPWDJG2569-30-93 10:37:0034.0[facility] JrzuaidSNOIECFELC4922-60-29 10:37:0076.1[facility] DcuswyiPLOVJSXKTS2817-61-83 10:37:00 Test Item Value Reference Range Interpretation Comments MCH (test code = MCH) 23.8 pg 27.0-31.0 [facility] NjckfygBGAUFYGZWA7079-21-69 10:37:0031.3[facility] HermannHEMATOLOGY 2020-08-29 10:37:0018.2[facility] LnhtbinEYEPJXSLRE5445-70-71 10:37:26189Xuikrjml VwecyedFVHRFHAOGR1673-13-32 10:37:007.5[facility] KiiuuctCVVKZTNCOH8024-79-22 10:37:00 Test Item Value Reference Range Interpretation Comments PT (test code = PT) 12.8 s 12.0-14.7 [facility] DtueimhBBDGUTZTDJ9358-81-58 10:37:00 Test Item Value Reference Range Interpretation Comments INR (test code = INR) 0.97 1 0.85-1.17 [facility] FxlhmckOCYVZEYREW7395-38-29 10:37:00 Test Item Value Reference Range Interpretation Comments PTT (test code = PTT) 25.0 s 22.9-35.8 [facility] EgexhucWVCARTSYWL8816-15-02 10:37:0070.5[facility] HermannHEMATOLOGY 2020-08-29 10:37:0018.8[facility] PhwxhdqZCTKIYSMXM2351-43-15 10:37:009.5[facility] WkuyotdUUKDZOXKVW3179-05-55 10:37:000.9[facility] EsafvjsLZHTNHPSPM1210-02-58 10:37:000.3[facility] PixykcqXUFBEBWQNG1754-07-82 10:37:004.8[facility] QTOMKVOCCC0734-01-69 10:37:001.3[facility] EgueezhELEBAFOWOR1310-56-00 10:37:000.6 [facility] MwzwjhlIMFECJHAFM4708-28-94 10:37:000.1[facility] HermannHEMATOLOGY 2020-08-29 10:37:001+ *ABN*(08/29/20 5:37 AM)[facility] VtjkngxRISGHKGGIR4965-01-89 10:37:00Not Detected (08/29/20 5:37 AM)[facility] HermannBLOOD BANK RESULTS 2020-08-29 10:37:00Negative (08/29/20 5:37 AM)[facility] HermannCHEM VNMUW9529-68-17 10:37:52703Yoqybvpn HermannCHEM TPKTO8421-13-87 10:37:0028[facility] HermannCHEM ACXRR4196-86-32 10:37:001.01[facility] HermannCHEM XEHMY0499-01-98 10:37:40857 [facility]annCHEM GCZEW3701-00-11 10:37:003.8[facility] HermannCHEM PANEL 2020-08-29 10:37:12925Vmsldcae HermannCHEM SRSFH9194-69-57 10:37:0028[facility] HermannCHEM OWISO9687-23-26 10:37:009.8[facility] HermannCHEM DUIAN8519-27-39 10:37:0011.8[facility] HermannCHEM KESFJ3362-54-55 10:37:0059[facility] HermannCHEM NEKSZ1822-61-38 10:37:002.9[facility] KxsvtdaDXNMRMUQOA0677-14-06 10:37:006.8 [facility] KrgrnqcQYWWPNFVEY2759-65-70 10:37:004.47[facility] HermannHEMATOLOGY 2020-08-29 10:37:0010.6[facility] NhowphiKTOQVPWYRW9538-01-80 10:37:0034.0[facility] NuaghomBGXEASIDAQ3871-74-84 10:37:0076.1[facility] NopzcupMWPDYZOJZF3569-58-78 10:37:00 Test Item Value Reference Range Interpretation Comments MCH (test code = MCH) 23.8 pg 27.0-31.0 [facility] UfhzmaaXJAHSMUOAH0967-14-99 10:37:0031.3[facility]HE[facility]OLOGY 2020-08-29 10:37:0018.2[facility] QtryadaFWBWOAYZFD2661-04-49 10:37:75164Ofjqrgwo BppraypAKLHRJECME3992-43-68 10:37:007.5[facility] VewcndjSWXBBHHMRQ8895-84-04 10:37:00 Test Item Value Reference Range Interpretation Comments PT (test code = PT) 12.8 s 12.0-14.7 [facility] RwmqmslLCIMEZRVNX7529-67-83 10:37:00 Test Item Value Reference Range Interpretation Comments INR (test code = INR) 0.97 1 0.85-1.17 [facility] EggbtdnEEKLHEROXU3699-37-78 10:37:00 Test Item Value Reference Range Interpretation Comments PTT (test code = PTT) 25.0 s 22.9-35.8 [facility] GvgzrmrZVSDLEEZBF8647-48-21 10:37:0070.5[facility]annHE[facility]OLOGY 2020-08-29 10:37:0018.8[facility] PrpttxlYZARWZLLZL5018-25-38 10:37:009.5[facility] SdofuffEWKZCFXKLG0289-50-04 10:37:000.9[facility] XwthicqDWDMQLRQNX9143-59-76 10:37:000.3[facility] DgtrelhMBQPCWYFXT9866-11-26 10:37:004.8[facility] OFYLUQYIII8838-80-59 10:37:001.3[facility] FnssqlqYEXGJWSRZW3343-01-88 10:37:000.6 [facility] NymcjayQDBTIWWADD0227-13-09 10:37:000.1[facility] 2020-08-29 10:37:001+ *ABN*(08/29/20 5:37 AM)[facility] EwtgrpkICYMGAQQNJ8416-24-27 10:37:00Not Detected (08/29/20 5:37 AM)[facility] RES[facility] 2020-08-29 10:37:00Negative (08/29/20 5:37 AM)[facility]annCHEM ILHCY7204-64-73 10:37:17093Gogsediv HermannCHEM TOREH4555-78-52 10:37:0028[facility]annCHEM RXYEQ2870-58-20 10:37:001.01[facility]annCHEM FMGBS8545-06-62 10:37:24260 [facility]annCHE[facility] AGJDG3830-95-09 10:37:003.8[facility]annCHEM PANEL 2020-08-29 10:37:40457Dsymwpot HermannCHEM GAWQI7902-48-47 10:37:0028[facility]annCHEM ACPNF2882-88-52 10:37:009.8[facility]annCHEM RZUNO9965-78-94 10:37:0011.8[facility]annCHEM EVAID7446-42-89 10:37:0059[facility]annCHEM IVOBV1740-06-12 10:37:002.9[facility] XfxrcgwIKVVAIXMXP7233-08-26 10:37:006.8 [facility] IqkwgwaHIKQZYIWAU5065-20-82 10:37:004.47[facility]annHEMATOLOGY 2020-08-29 10:37:0010.6[facility] BxxccrjTYXDAPRJBP6512-28-90 10:37:0034.0[facility] UmgmuloDUVHLDSXLT7654-70-18 10:37:0076.1[facility] ZaxolokRIJIDAWAMY2970-32-19 10:37:00 Test Item Value Reference Range Interpretation Comments MCH (test code = MCH) 23.8 pg 27.0-31.0 [facility] OcfzosoXLYRPRJKWR1754-82-07 10:37:0031.3[facility]annHEMATOLOGY 2020-08-29 10:37:0018.2[facility] GqqlxazZLQIRTBKOP1456-40-92 10:37:58163Xaokmpwl GneduazRFYUJPGSWL9344-31-28 10:37:007.5[facility] BojvhxtJVVZZQATIR1430-54-76 10:37:00 Test Item Value Reference Range Interpretation Comments PT (test code = PT) 12.8 s 12.0-14.7 [facility] VrznttdNYCFTLKDVQ2548-34-62 10:37:00 Test Item Value Reference Range Interpretation Comments INR (test code = INR) 0.97 1 0.85-1.17 [facility] RzvsfmkLSXKIXREPM1045-45-02 10:37:00 Test Item Value Reference Range Interpretation Comments PTT (test code = PTT) 25.0 s 22.9-35.8 [facility] HndeiulJYFXIMKYBZ3942-02-40 10:37:0070.5[facility]annHEMATOLOGY 2020-08-29 10:37:0018.8[facility] NsmlrhgBXFIAPLFAX1970-07-00 10:37:009.5[facility] WliahwaGQBGADMQHY6116-31-75 10:37:000.9[facility] XakniheJVIWOJKOBW1874-60-03 10:37:000.3[facility] RjvgcybWHWPHLDRFO4311-50-20 10:37:004.8[facility] DJFPESYRBT4965-61-98 10:37:001.3[facility] XgvhcsoEDBCRHSXNQ7717-69-99 10:37:000.6 [facility] [id number] 10:37:000.1[facility] 2020-[facility]29 10:37:001+ *ABN*(08/29/20 5:37 AM)[facility] [id number] 10:37:00Not Detected (08/29/20 5:37 AM)[facility] HermannCHLAMYDIA, GC, TV,PCR, IN [id number] 15:38:00 Test Item Value Reference Range Interpretation Comments FT (test code = CHTR) Not detected (qualifier Not Detected N value) FT (test code = Not detected (qualifier Not Detected N NGONO) value) FT (test code = TRVG) Not detected (qualifier Not Detected N value) URINALYSIS WITH [id number] 10:57:00 Test Item Value Reference Range Interpretation Comments Color (test code = UCOLR) Dk. Yellow Clarity (test code = UCLAR) Hazy Glucose (test code = UGLUC) NEGATIVE NEGATIVE N Bilirubin (test code = UBILI) NEGATIVE NEGATIVE N Ketones (test code = UKET) NEGATIVE NEGATIVE N Specific [place] (test code = 1.025 1.005-1.030 A USPGR) [...]
[2022-01-09] MEDS ORDERED: HYDROCODONE/APAP 7.5/325 MG TAB ONE (14:57)
[2022-01-09] MEDS ORDERED: IBUPROFEN 400 MG TAB ONE (14:57)
--- NOTE | 2022-01-09 15:24 | RAD REPORT ---
EXAM DESCRIPTION: RAD - Knee Right 3 View - 01/09/2022 3:17 pm CLINICAL HISTORY: fall COMPARISON: Knee Right 3 View dated 01/02/2018 FINDINGS: No fracture, dislocation or periosteal reaction.No joint effusion seen. No joint space shady rowing. No foreign body or other soft tissue abnormality. No significant change from comparison. IMPRESSION: Negative right knee for acute finding. Clinical concerns for internal derangement or occult bony injury could be further assessed with MR im aging.
--- NOTE | 2022-01-09 15:28 | EDPHYS ---
Physician Documentation [facility] Name: Fawn Fleming Age: 66 yrs Sex: Female : 1955 Arrival Date: 01/09/2022 Time: 12:34 Bed 30 Private MD: Lele Rahman H ED Physician Leyda Capellan HPI: 01/09 14:20 This 66 yrs old Female presents to ER via Ambulatory with complaints of Weakness - legs.cp 14:20 The patient presents with pain, that is acute. The complaints affect the right knee. cp 14:20 Context: resulted from the patient falling, the patient can fully bear weight, the cp patient is able to ambulate. Onset: The symptoms/episode began/occurred today. Associated signs and symptoms: The patient has no apparent associated signs or symptoms. Patient reports legs became weak, causing her to fall and land onto right knee. Historical: - Allergies: 12:54 Bactrim DS; kb3 12:54 butorphanol tartrate; kb3 12:54 Fentanyl; kb3 12:54 Reglan; kb3 12:54 Stadol; kb3 12:54 sulfamethoxazole (bulk); kb3 12:54 TRIMETHOPRIM; kb3 - PMHx: 12:54 Anxiety; Atrial Fib; Bipolar disorder; Chronic pain; COPD; esophageal varices; kb3 Hepatitis; HIV; Hypertension; Migraines; Panic Attacks; - PSHx: 12:54 Appendectomy; Bilateral shoulder repair; Cholecystectomy; hernia repair; R wrist SX; kb3 - Immunization history:: Adult Immunizations up to date, Client reports receiving the 2nd dose of the Covid vaccine, Last tetanus immunization: up to date. - Social history:: Smoking status: Patient denies any tobacco usage or history of. Patient/guardian denies using alcohol, street drugs. ROS: 14:25 MS/extremity: Positive for pain, of the right knee, Negative for decreased range of cp motion, deformity, paresthesias. 14:25 Constitutional: Negative for body aches, chills, fever, poor PO intake. cp 14:25 Cardiovascular: Negative for chest pain, edema, palpitations. 14:25 Respiratory: Negative for cough, shortness of breath, wheezing. 14:25 Abdomen/GI: Negative for abdominal pain, nausea, vomiting, and diarrhea. 14:25 Neuro: Negative for altered mental status, headache, numbness. 14:25 All other systems are negative. Exam: 14:30 Constitutional: The patient appears in no acute distress, alert, awake, non-toxic, well cp developed, well nourished. 14:30 Head/Face: Normocephalic, atraumatic. cp 14:30 Chest/axilla: Inspection: normal. 14:30 Cardiovascular: Rate: bradycardic, Edema: is not appreciated, JVD: is not appreciated. 14:30 Respiratory: the patient does not display signs of respiratory distress, Respirations: normal, no use of accessory muscles, no retractions. 14:30 Abdomen/GI: Exam negative for discomfort, distension, guarding, Inspection: abdomen appears normal. 14:30 Musculoskeletal/extremity: Extremities: grossly normal except: noted in the right knee: pain, tenderness, There is no evidence of decreased ROM, deformity, swelling, ROM: full active range of motion, in the right knee, Pulses: noted to be 2+ in the right dorsalis pedis artery, overlying skin of right knee intact with no signs cellulitis. Vital Signs: 12:52 BP 169 / 87; Pulse 56; Resp 18; Temp 98.3; Pulse Ox 97% ; Weight 88.45 kg; Height 5 ft. kb3 4 in. (162.56 cm); Pain 9/10; 12:52 Body Mass Index 33.47 (88.45 kg, 162.56 cm) kb3 MDM: 13:59 Patient medically screened. cp 15:00 Differential diagnosis: dislocation, open fracture, closed fracture, contusion. cp 15:27 Data reviewed: vital signs, nurses notes, radiologic studies, plain films. cp 15:27 Counseling: I had a detailed discussion with the patient and/or guardian regarding: the cp historical points, exam findings, and any diagnostic results supporting the discharge/admit diagnosis, radiology results, to return to the emergency department if symptoms worsen or persist or if there are any questions or concerns that arise at home. 01/09 14:14 Order name: XRAY Knee RIGHT 3 view; Complete Time: 15:26 cp 01/09 15:26 Interpretation: Report reviewed. cp Administered Medications: 15:10 Not Given (Patient Refused): Hydrocodone-Acetaminophen (7.5 mg-325 mg) 1 tabs PO once; iw RASS on ADMIN: Combtv4, Very Agttd3, Agttd2, Rstlss1, AlertClm0, Drwsy-1, Lt Sdtn-2, Mod Sdtn-3, Dp Sdtn-4, UnArsble-5 15:10 Not Given (Patient Refused): Ibuprofen 800 mg PO once iw Disposition: 01/10 08:27 STAFF ATTESTATION STATEMENT: I was immediately available onsite in the emergency sd2 department for consultation in the care of this patient. I did not see or examine this patient. Leyda Capellan MD. Disposition Summary: 01/09/22 15:27 Discharge Ordered Location: Home cp Problem: new cp Symptoms: are unchanged cp Condition: Stable cp Diagnosis - Pain in right knee - from fall cp Followup: cp - With: Private Physician - When: 2 - 3 days - Reason: Recheck today's complaints Discharge Instructions: - Discharge Summary Sheet cp - Elastic Bandage and RICE Therapy cp - Acute Knee Pain, Adult cp Forms: - Medication Reconciliation Form cp - Thank You Letter cp - Antibiotic Education cp - Prescription Opioid Use cp Prescriptions: - Naprosyn 500 mg Oral Tablet - take 1 tablet by ORAL route 2 times per day take with food; 20 tablet; Refills: cp 0, Product Selection Permitted Signatures: Dispatcher [employer] Justus Evans PA PA cp Dunlop, Stephanie, MD MD sd2 Ava Mabry, RN RN kb3 Jacquelin Meier RN iw
--- NOTE | 2022-01-09 15:28 | ER ---
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 Coronavirus screen: Vaccine status: Patient reports receiving the 2nd dose of the covid vaccine. Client denies travel out of the [place] in the last 14 days. At this time, the client does not indicate any symptoms associated with coronavirus-19. Ebola Screen: Patient negative for fever greater than or equal to 101.5 degrees Fahrenheit, and additional compatible Ebola Virus Disease symptoms Patient denies exposure to infectious person. Patient denies travel to an Ebola-affected area in the 21 days before illness onset. No symptoms or risks identified at this time. No acute neurological deficit is noted. Pre-hospital glucose is not applicable to this patient. Initial Sepsis Screen: Does the patient meet any 2 criteria? No. Patient's initial sepsis screen is negative. Does the patient have a suspected source of infection? No. Patient's initial sepsis screen is negative. Risk Assessment: Do you want to hurt yourself or someone else? Patient reports no desire to harm self or others. Onset of symptoms was January 09, 2022 at 12:00. 12:52 Method Of Arrival: Ambulatory kb3 12:52 Acuity: BLAYNE 4 kb3 13:50 Acuity: BLAYNE 3 iw Triage Assessment: 12:54 General: Appears in no apparent distress. Behavior is calm, cooperative. Pain: kb3 Complains of pain in right knee Pain does not radiate. Pain currently is 9 out of 10 on a pain scale. Quality of pain is described as throbbing. 12:54 Neuro: No deficits noted. kb3 Historical: - Allergies: 12:54 Bactrim DS; kb3 12:54 butorphanol tartrate; kb3 12:54 Fentanyl; kb3 12:54 Reglan; kb3 12:54 Stadol; kb3 12:54 sulfamethoxazole (bulk); kb3 12:54 TRIMETHOPRIM; kb3 - PMHx: 12:54 Anxiety; Atrial Fib; Bipolar disorder; Chronic pain; COPD; esophageal varices; kb3 Hepatitis; HIV; Hypertension; Migraines; Panic Attacks; - PSHx: 12:54 Appendectomy; Bilateral shoulder repair; Cholecystectomy; hernia repair; R wrist SX; kb3 - Immunization history:: Adult Immunizations up to date, Client reports receiving the 2nd dose of the Covid vaccine, Last tetanus immunization: up to date. - Social history:: Smoking status: Patient denies any tobacco usage or history of. Patient/guardian denies using alcohol, street drugs. Screenin:17 Abuse screen: Denies threats or abuse. Denies injuries from another. Nutritional iw screening: No deficits noted. Tuberculosis screening: No symptoms or risk factors identified. Fall Risk Fall in past 12 months (25 points). Assessment: 14:30 General: Appears in no apparent distress. Behavior is calm, cooperative. General:. iw Pain: Complains of pain in right leg and right knee. Neuro: Level of Consciousness is awake, alert, obeys commands, Oriented to person, place, time, situation, Moves all extremities. Full function. Cardiovascular: Patient's skin is warm and dry. Respiratory: Respiratory effort is even, unlabored, Respiratory pattern is regular, symmetrical. Derm: Skin is intact, is healthy with good turgor. Musculoskeletal: Range of motion: intact in all extremities. 14:32 Reassessment: pt requesting pain medication for her knee, pt then states "I called iw administration on oJse because he gave me ibuprofen and I don't know why after all this time they would always give me morphine, and that lady said yeah I don't know why they would do that". I told pt that I would speak with the PA and see what we could give her. 14:55 Reassessment: attempted to medicate pt with hydrocodone and ibuprofen , pt states "I iw already told him I'm allergic to that" I told pt that the provider is not giving her morphine , pt states "well I'm gonna call administration on him then". 15:16 Reassessment: pt walked out of ER after refusing pain medication , walked with steady iw gait, pushed open double doors, walked to lobby. Vital Signs: 12:52 BP 169 / 87; Pulse 56; Resp 18; Temp 98.3; Pulse Ox 97% ; Weight 88.45 kg; Height 5 ft. kb3 4 in. (162.56 cm); Pain 9/10; 12:52 Body Mass Index 33.47 (88.45 kg, 162.56 cm) kb3 ED Course: 12:34 Patient arrived in ED. as 12:34 Lele Rahman DO is Private Physician. as 12:54 Triage completed. kb3 12:54 Arm band placed on right wrist. kb3 13:34 Jacquelin Meire, RN is Primary Nurse. iw 13:49 Justus Neil PA is PHCP. cp 13:49 Leyda Capellan MD is Attending Physician. cp 14:30 Patient has correct armband on for positive identification. iw 15:18 No provider procedures requiring assistance completed. Patient did not have IV access iw during this emergency room visit. 15:19 XRAY Knee RIGHT 3 view In Process Unspecified. EDMS Administered Medications: 15:10 Not Given (Patient Refused): Hydrocodone-Acetaminophen (7.5 mg-325 mg) 1 tabs PO once; iw RASS on ADMIN: Combtv4, Very Agttd3, Agttd2, Rstlss1, AlertClm0, Drwsy-1, Lt Sdtn-2, Mod Sdtn-3, Dp Sdtn-4, UnArsble-5 15:10 Not Given (Patient Refused): Ibuprofen 800 mg PO once iw Medication: 14:30 VIS not applicable for this client. iw Outcome: 15:27 Discharge ordered by MD. cp 15:31 Discharged to home ambulatory. iw 15:31 Condition: unchanged 15:31 Discharge instructions given to pt left before discharge instructions 15:32 Patient left the ED. iw Signatures: Dispatcher [employer] EDMS Radha Simons as Jacquelin Meier, RN RN iw Justus Neil PA PA cp Ava Mabry, ASHLEY RN kb3
[2022-01-09 16:17] VITALS: BP 169/87; TEMP 98.3; O2SAT 97
== END 2022-01-09 15:32 | disposition home or self-care (01) ==
LOC: ER 12:33
DX: M25.561 Pain in right knee (principal); R53.1 Weakness; W18.30XA Fall on same level, unspecified, initial encounter; I10 Essential (primary) hypertension; F31.9 Bipolar disorder, unspecified; Z21 Asymptomatic human immunodeficiency virus [HIV] infection status; Z88.1 Allergy status to other antibiotic agents; Z88.2 Allergy status to sulfonamides; Z88.5 Allergy status to narcotic agent; Z88.8 Allergy status to other drugs, medicaments and biological substances
CPT/HCPCS: 99283

== ENCOUNTER 2022-01-12 14:55 | Emergency (ER) | payer OTHER ==
--- OUTSIDE RECORDS SUMMARY | 2022-01-12 15:06 | XMS REPORT | Continuity of Care Document ---
:1955 Author Organization [facility] t Address [address] [place] [address] Care Team Providers Name Role Phone Urmila Rahman Primary Care Physician Mike Lund Attending Clinician Unavailable ELAN LIRA Attending Clinician Unavailable SANTIAGO CARDENAS Attending Clinician Unavailable Doctor Unassigned, [place] Attending Clinician Unavailable Bill GUO Attending Clinician Unavailable Bill Rose Attending Clinician [facility] Attending Clinician Unavailable Santiago Sanchez Attending Clinician Beverly Layton MD Attending Clinician Eliseo Arce MD Attending Clinician Carol Ann [employer], Sarai Lieberman Attending Clinician [phone] Prabhu SANCHEZ, Ashly Attending Clinician Unavailable [...] Number Effective Date Expiration Date S gabino [facility] [id number] 2012 STARPLUS OON 00:00:00 EXCEPT [facility] DUAL [id number] 2020 COMP HMO D SNP 00:00:00 MEDICAID OF [place] [id number] 2020 00:00:00 Problems Condition Condition Condition Status Onset Resolution Last Treating Co mments Source Name Details Category Date Date Treatment Clinician Date Gastropare Gastropare Disease Active Overview : Methodi sis sis 4-[address] 00:00: [facility] note l might be different from the original. Added automatic ally from request for surgery [id number] Dysphagia Dysphagia Disease Active Overview: Methodi 4-[address] 00:00: [facility] 00 note l might be different from the original. 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 2020-10-15 Memoria PVI PVI 3-30 17:07:00 l ABLATION ABLATION 00:00: Patel n W/ CARTO / W/ CARTO / 00 GA / T GA / T Active 08/19/2020 [facility] Food Food Disease Active 2019-05 Methodi [...] (BMI 2-19 ity of 30-39.9) 30-39.9) 00:00: [place] [facility] Anemia Anemia Disease Active 2014-05 [...] hepatitis 11-18 ity of C C 00:00: [place] [facility] Hypertensi Hypertensi Disease Active U nivers on on 11-18 ity of 00:00: [place] 00 Medical Branch Allergies, Adverse Reactions, Alerts Allergy Allergy Status Severity Reaction(s) Onset Inactive Treating Comm ents Source Name Type Date Date Clinician sulfamet DA Active SV N/V [facility] hoxazole 1- Clear 00:00: Garcia 00 [facility] trimetho DA Active SV [facility] prim 1- Clear 00:00: Garcia [facility] codeine DA Active SV N/V [facility] - Clear 00:00: Garcia [facility] Metoclop Propensi Active [place] ramide ty to 12-12 Health adverse 00:00: reaction 00 s BUTORPHA DRUG Active Unknown-Cmnt Un matt NOL INGREDI 11-25 ity of 00:00: 00 Medical Branch Butorpha Drug Active Unknown [...] Date Stop Date Source Natural [facility] Kidney disease Method [facility] Social History Social Habit Start Date Stop Date Quantity Comments Source History [facility] Alcohol Comment History of tobacco Smoker Method ist use Hospital History [facility] Gnosticist Alcohol Frequency Hospita l History [facility] Gnosticist Alcohol Std Drinks Hospit al History [facility] Alcohol Binge Hospital Exposure to 2021-12-02 2021-12-12 Not sure University SARS-CoV-2 (event) 00:00:00 23:54:00 [facility] Alcohol intake 2021-07-14 2021-07-14 Ex-drinker [facility] 00:00:00 00:00:00 (finding) Cigarettes smoked 2020-09-05 2020-09-[address] current (pack per 00:00:00 00:00:[facility] day) - Reported Cigarette 2020-09-05 2020-09-05 Gnosticist pack-years 00:00:00 00:00:00 Hospital Tobacco use and 2020-08-06 2020-08-06 Former smokeless Uni versity of exposure 00:00:00 00:00:00 tobacco user [facility] Tobacco Comment 2015-02-14 2015-02-14 Smokes approx 1-2 Un iversity of 00:00:00 00:00:00 cigarettes per [facility] day when she Branch smokes Sex [birth year] [facility] 00:00:00 00:00:00 Smoking Status Start Date Stop Date Source Ex-smoker 2020-08-06 00:00:00 2020-08-06 [facility] Medications Ordered Filled Start Stop Current Ordering Indication Dosage Frequency Signature Comments Components Source Medication Medication Date Date Medication? Clinician (SIG) Name Name methocarbam No 500mg 500 mg, U nivers oL 12-13 Oral, ity of (ROBAXIN) 07:45: 06:35 ONCE, [place] tablet 500 [place] :00 dose, On Medic al mg [facility] 12/13/21 at 0245, Routine ketorolac No 30mg 30 mg, Unive rs (TORADOL) 12-13 Intramuscu ity of injection 07:45: 06:34 lar, ONCE, [place] 30 mg 00 :00 1 dose, On Medical [place] 12/13/21 at 0245, JOE naproxen 2022-0 Yes [id number] 500mg Take 1 U nivers (NAPROSYN) 7-24 tablet by ity of 500 mg 00:00: mouth in [place] tablet 00 the Medical morning Branch and 1 tablet in the evening. Take with meals. methocarbam 2022-0 Yes [id number] 500mg Take 1 Univers oL 500 mg 7-24 tablet by ity o f tablet 00:00: mouth [address] [place] [address] [facility]) Medical times [place] daily. naproxen 2022-0 Yes [id number] 500mg Take 1 U nivers (NAPROSYN) 7-24 tablet by ity of 500 mg 00:00: mouth in [place] tablet 00 the Medical morning Branch and 1 tablet in the evening. Take with meals. methocarbam 2022-0 Yes [id number] 500mg Take 1 Univers oL 500 mg 7-24 tablet by ity o f tablet 00:00: mouth 4 [place] [address] [facility]) [facility] times [place] daily. naproxen 2022-0 Yes [id number] 500mg Take 1 U nivers (NAPROSYN) 7-24 tablet by ity of 500 mg 00:00: mouth in [place] tablet 00 the Medical morning Branch and 1 tablet in the evening. Take with meals. methocarbam 2022-0 Yes [id number] 500mg Take 1 Univers oL 500 mg 7-24 tablet by ity o f tablet 00:00: mouth 4 [place] [address] [address]) [facility] times [place] daily. hydralAZINE 2-0 Yes 25mg Take 25 mg Univers (APRESOLINE 7-01 by mouth ity of ) 25 mg 08:47: daily. [address] hydralAZINE 2-0 Yes 25mg Take 25 mg Univers (APRESOLINE 7-01 by mouth ity of ) 25 mg 08:47: daily. [address] hydralAZINE 2022-0 Yes 25mg Take 25 mg Univers (APRESOLINE 7-01 by mouth ity of ) 25 mg 08:47: daily. [address] hydralAZINE 2-0 Yes 25mg Take 25 mg Univers (APRESOLINE 7-01 by mouth ity of ) 25 mg 08:47: daily. [address] buPROPion 2022-0 Yes [id number] 150mg Take 1 U nivers XL 4-12 tablet by ity of (WELLBUTRIN 00:00: mouth [place] XL) 150 mg 00 daily. Medical 24 hr Branch tablet busPIRone 2021-0 Yes [id number] 30mg Take 1 Un matt 30 mg 4-12 tablet by ity of tablet 00:00: mouth 2 [place] 00 (two) Medical times Branch daily. SERTraline 2021-0 Yes [id number] 200mg Take 2 Univers 100 mg 4-12 tablets by ity of tablet 00:00: mouth [place] 00 daily. Medical Branch buPROPion 0 Yes [id number] 150mg Take 1 U nivers XL 4-12 tablet by ity of (WELLBUTRIN 00:00: mouth [place] XL) 150 mg 00 daily. Medical 24 hr Branch tablet busPIRone 0 Yes [id number] 30mg Take 1 Un matt 30 mg 4-12 tablet by ity of tablet 00:00: mouth 2 00 (two) Medical times Branch daily. SERTraline 0 Yes [id number] 200mg Take 2 Univers 100 mg 4-12 tablets by ity of tablet 00:00: mouth [place] 00 daily. Medical Branch buPROPion 0 Yes [id number] 150mg Take 1 U nivers XL 4-12 tablet by ity of (WELLBUTRIN 00:00: mouth [place] XL) 150 mg 00 daily. Medical 24 hr Branch tablet busPIRone 2021-0 Yes [id number] 30mg Take 1 Un matt 30 mg 4-12 tablet by ity of tablet 00:00: mouth 2 00 (two) Medical times Branch daily. SERTraline 2021-0 Yes [id number] 200mg Take 2 Univers 100 mg 4-12 tablets by ity of tablet 00:00: mouth [place] 00 daily. Medical Branch buPROPion 2021-0 Yes [id number] 150mg Take 1 U nivers XL 4-12 tablet by ity of (WELLBUTRIN 00:00: mouth [place] XL) 150 mg 00 daily. Medical 24 hr Branch tablet busPIRone 2021-0 Yes [id number] 30mg Take 1 Un matt 30 mg 4-12 tablet by ity of tablet 00:00: mouth 2 [place] 00 (two) Medical times Branch daily. SERTraline 2021-0 Yes [id number] 200mg Take 2 Univers 100 mg 4-12 tablets by ity of tablet 00:00: mouth [place] 00 daily. Medical Branch raltegravir 2021-0 Yes [id number] 400mg Take 1 Univers (ISENTRESS) 3-28 tablet by ity of 400 mg 00:00: mouth 2 [place] tablet 00 (two) Medical times Branch daily. raltegravir 0 Yes [id number] 400mg Take 1 Univers (ISENTRESS) 3-28 tablet by ity of 400 mg 00:00: mouth 2 [place] tablet 00 (two) Medical times Branch daily. raltegravir 2021-0 Yes [id number] 400mg Take 1 Univers (ISENTRESS) 3-28 tablet by ity of 400 mg 00:00: mouth 2 [place] tablet 00 (two) Medical times Branch daily. raltegravir 0 Yes [id number] 400mg Take 1 Univers (ISENTRESS) 3-28 tablet by ity of 400 mg 00:00: mouth 2 [place] tablet 00 (two) Medical times Branch daily. raltegravir 0 Yes [id number] 400mg Take 1 Univers (ISENTRESS) 3-28 tablet by ity of 400 mg 00:00: mouth 2 [place] tablet 00 (two) Medical times Branch daily. LORazepam 1 0 Yes [id number] 1mg Take 1 Univers mg tablet 3-21 [...] 00 times a tablet day. buPROPion 2021-0 2021- No [id number] 150mg Take 1 Univers XL 1-24 04-12 tablet by ity of (WELLBUTRIN 00:00: 00:00 [place] XL) 150 mg 00 :00 daily. Medical 24 hr Branch tablet busPIRone 2021- No [id number] 30mg Take 1 U nivers 30 mg 06-1512 tablet by ity of tablet 00:00: 00:00 mouth 2 [place] 00 :00 (two) Medical times Branch daily. SERTraline 2021- No [id number] 200mg Take 2 Univers 100 mg 06-15-12 tablets by ity of tablet 00:00: 00:00 mouth [place] 00 :00 daily. Medical Branch emtricitabi Yes [id number] Take one Univers ne-tenofovi 1-20 po daily ity of r alafen 00:00: [place] (DESCOVY) 00 Medical tablet Branch emtricitabi Yes [id number] Take one Univers ne-tenofovi 1-20 po daily ity of r alafen 00:00: [place] (DESCOVY) 00 Medical tablet Branch emtricitabi Yes [id number] Take one Univers ne-tenofovi 1-20 po daily ity of r alafen 00:00: [place] (DESCOVY) 00 Medical tablet Branch emtricitabi Yes [id number] Take one Univers ne-tenofovi 1-20 po daily ity of r alafen 00:00: [place] (DESCOVY) 00 Medical tablet Branch emtricitabi Yes [id number] Take one Univers ne-tenofovi 1-20 po daily ity of r alafen 00:00: [place] (DESCOVY) 00 Medical tablet Branch metoprolol Yes [id number] Take 1 [facility] tartrate 7-26 tablet Health (Lopressor) 00:00: (100 mg 100 MG 00 total) by tablet mouth 2 (two) times a day AND 0.5 tablets (50 mg total) every night. metoprolol Yes [id number] Take 1 [place] tartrate 7-26 tablet Health [...] (affected area in groin) hydrALAZINE Yes 50mg Q.[id number] Take 50 mg Methodi (APRESOLINE 7-19 [id number] mouth [address] ) 50 MG [...] tablet 25 daily. l nystatin-tr 0 Yes [id number] Apply to [facility] [place] [facility] area[facility] 3 ity of cream 00:00: (three) [place] 00 times Medical daily. Branch nystatin-tr 2020-0 Yes [id number] Apply to [facility] [place] [facility] iainolone 7-06 area(s) 3 ity of cream 00:00: (three) [place] 00 times Medical daily. Branch nystatin-tr 2020-0 Yes [id number] Apply to [facility] [place] [facility] iainolone 7-06 area(s) 3 ity of cream 00:00: (three) [place] 00 times Medical daily. Branch nystatin-tr 2020-0 Yes [id number] Apply to [facility] [place] [facility] iainolone 7-06 area(s) 3 ity of cream 00:00: (three) [place] 00 times Medical daily. Branch nystatin-tr 2020-0 Yes [id number] Apply to [facility] [place] [facility] iainolone 7-06 area(s) 3 ity of cream 00:00: (three) [place] 00 times Medical daily. Branch budesonide- 2020-0 2020- No 1{puff} QD Inhale 1 Methodi formoteroL 6-25 06-[address] (SYMBICORT) 14:37: 00:00 morning. H ospita 160-4.5 02 :00 l mcg/actuati on inhaler hydrALAZINE 0 Yes [id number] 50mg Q.[id number] Take 1 [facility] (Apresoline 6-11 [id number] tablet (50 Health ) 50 MG 00:00: 3D mg total) tablet 00 by mouth 3 (three) times a day. hydrALAZINE 0 Yes [id number] 50mg Q.[id number] Take 1 [facility] (Apresoline 6-11 [id number] tablet (50 Health ) 50 MG 00:00: 3D mg total) tablet 00 by mouth 3 (three) times a day. Breztri 2020-0 Yes [facility] Aerosphere -09 Health 160-9-4.8 00:00: MCG/ACT 00 aerosol Breztri 0 Yes [facility] Aerosphere 6 Health 160-9-4.8 00:00: MCG/ACT 00 aerosol albuterol [...] 00:00: ointment 00 nystatin 2020-0 1- No [id number] Q.25D Take 5 mL Methodi (MYCOSTATIN 10-06 [...] ia 4-10 (Same as: l 14:00: Norvasc) [place] emtricitabi No Notes: Caesar lisa ne 200 [...] ia 4-10 (Same as: l 14:00: Norvasc) [place] emtricitabi No Notes: [place] lisa ne 200 [...] e 4-10 Tablet l 14:00: should not [place] 00 be chewed or crushed. (Same as: [...] ia 4-10 (Same as: l 14:00: Zoloft) [place] 00 pantoprazol No Notes: [place] lisa e 4-10 Tablet l 14:00: should not [place] 00 be chewed or crushed. (Same as: Protonix) Amiodarone No Notes: Memor ia 4-10 (Same as: l 14:00: Cordarone) [place] Amlodipine No Notes: Memor ia 4-10 (Same as: l 14:00: Norvasc) [place] emtricitabi No Notes: Caesar lisa ne 200 MG / 4-10 (Same as: l tenofovir 14:00: [place]cov[place]) Herm ariel alafenamide 00 Non-formul 25 MG Oral nancy Tablet [Descovy] Sertraline No Notes: Memor ia 4-10 (Same as: l 14:00: Zoloft) [place] 00 pantoprazol No Notes: [place] lisa e 4-10 Tablet l 14:00: should not [place] 00 be chewed or crushed. (Same as: Protonix) Amiodarone No Notes: Memor ia 4-10 (Same as: l 14:00: Cordarone) [place] 00 Amlodipine No Notes: Memor ia 4-10 (Same as: l 14:00: Norvasc) [place] 00 emtricitabi No Notes: Caesar lisa ne 200 MG / 4-10 (Same as: l tenofovir 14:00: [place]) Herm ariel alafenamide 00 Non-formul 25 MG Oral nancy Tablet [Descovy] Sertraline No Notes: Memor ia 4-10 (Same as: l 14:00: Zoloft) [place] 00 pantoprazol No Notes: [place] lisa e 4-10 Tablet l 14:00: should not [place] 00 be chewed or crushed. (Same as: Protonix) Amiodarone No Notes: Memor ia 4-10 (Same as: l 14:00: Cordarone) [place] Amlodipine No Notes: Memor ia 4-10 (Same as: l 14:00: Norvasc) [place] emtricitabi No Notes: Caesar lisa ne 200 MG / 4-10 (Same as: l tenofovir 14:00: [place]) Herm ariel alafenamide 00 Non-formul 25 MG Oral nancy Tablet [Descovy] Sertraline No Notes: Memor ia 4-10 (Same as: l 14:00: Zoloft) [place] pantoprazol No Notes: [place] lisa e 4-10 Tablet l 14:00: should not [place] 00 be chewed or crushed. (Same as: [...] Memoria 4-10 Same as: l 02:00: Eliquis [place] 00 Hydralazine No Notes: [place] lisa Hydrochlori 4-10 (Same as: l de 50 MG 02:00: Apresoline Her mit[place] Oral Tablet 00 ) May interfere w/enteral feedings Take With Food Sucralfate No Notes: May M emoria 4-10 interfere l 02:00: w/enteral [place] 00 feeds - Take 1 hr before or 2 hr after antacids, dairy pdt, meals & minerals - On empty stomach. For patients unable to swallow tablet, dissolve in 10mL - 30mL of water or juice and stir before giving. (Same As: Carafate) Saline No Notes: Memoria Flush 0.9% 4-10 (Same as: l 02:00: BD [place] 00 Posiflush) Eliquis No Notes: Memoria 4-10 [...] 0.9% 4-10 (Same as: l 02:00: BD [place] 00 Posiflush) Eliquis No Notes: Memoria 4-10 Same as: l 02:00: Eliquis [place] Hydralazine No Notes: Caesar lisa Hydrochlori 4-10 (Same as: l de 50 MG 02:00: Apresoline Her [place] Oral Tablet 00 ) May interfere w/enteral feedings Take With Food Sucralfate No Notes: May M emoria 4-10 interfere l 02:00: w/enteral [place] 00 feeds - Take 1 hr before or 2 hr after antacids, dairy pdt, meals & minerals - On empty stomach. For patients unable to swallow tablet, dissolve in 10mL - 30mL of water or juice and stir before giving. (Same As: Carafate) Saline No Notes: Memoria Flush 0.9% 4-10 (Same as: l 02:00: BD [place] 00 Posiflush) Eliquis No Notes: Memoria 4-10 Same as: l 02:00: Eliquis [place] Hydralazine No Notes: Caesar lisa Hydrochlori 4-10 (Same as: l de 50 MG 02:00: Apresoline Her [place] Oral Tablet 00 ) May interfere w/enteral feedings Take With Food Sucralfate No Notes: May M emoria 4-10 interfere l 02:00: w/enteral [place] 00 feeds - Take 1 hr before or 2 hr after antacids, dairy pdt, meals & minerals - On empty stomach. For patients unable to swallow tablet, dissolve in 10mL - 30mL of water or juice and stir before giving. (Same As: Carafate) Saline No Notes: Memoria Flush 0.9% 4-10 (Same as: l 02:00: BD [place] 00 Posiflush) Eliquis No Notes: Memoria 4-10 Same as: l 02:00: Eliquis [place] Hydralazine No Notes: Caesar lisa Hydrochlori 4-10 (Same as: l de 50 MG 02:00: Apresoline Her [place] Oral Tablet 00 ) May interfere w/enteral feedings Take With Food Sucralfate No Notes: May M emoria 4-10 interfere l 02:00: w/enteral [place] 00 feeds - Take 1 hr before [...] not exceed l #3 00:12: 4gm/day of [place] acetaminop hen. (Same as: Tylenol with Codeine # 3) acetaminoph No Notes: Do M emoria en-codeine 4-10 not exceed l #3 00:12: 4gm/day of [place] acetaminop hen. (Same as: Tylenol with Codeine # 3) acetaminoph No Notes: Do M emoria en-codeine 4-10 not exceed l #3 00:12: 4gm/day of [place] acetaminop hen. (Same as: Tylenol with Codeine # 3) acetaminoph No Notes: Do M emoria en-codeine 4-10 not exceed l #3 00:12: 4gm/day of [place] 00 acetaminop hen. (Same as: Tylenol with Codeine # 3) acetaminoph No Notes: Do M emoria en-codeine 4-10 not exceed l #3 00:12: 4gm/day of [place] 00 acetaminop hen. (Same as: Tylenol with Codeine # 3) acetaminoph No Notes: Do M emoria en-codeine 4-10 not exceed l #3 00:12: 4gm/day of [place] acetaminop hen. (Same as: Tylenol with Codeine # 3) Buspirone No Notes: Memori a 08-29 (Same As: l 22:00: BuSpar) Lisinopril No 40 mg, 1 Mem oria 4- tab, l 22:00: Route: PO, [place] Drug form: TAB, BID, Dosing Weight 97.273, kg, Start date: 08/29/20 17:00:00 CDT, Duration: 30 day, Stop date: 09/28/20 9:00:00 CDT metoprolol No 100 mg, 1 Me moria tartrate - tab, l 22:00: Route: PO, [place] 00 Drug form: TAB, BID, Dosing Weight [...] oria 4-09 tab, l 22:00: Route: PO, [place] 00 Drug form: TAB, BID, Dosing Weight [...] oria 4-09 tab, l 22:00: Route: PO, [place] 00 Drug form: TAB, BID, Dosing Weight [...] Notes: Memoria 4-09 (Same l 17:07: as:MORPhin [place] 00 e Sulfate) Morphine No Notes: Memoria [...] tab, 0 coated Refill(s), tablet Pharmacy: [facility], 162.56, cm, 08/29/20 5:30:00 CDT, Height, 97.273, kg, 08/29/20 5:30:00 CDT, Weight pantoprazol 2021-0 Yes 40 mg = 1 M emoria e 40 mg 4-09 tab, PO, l oral 15:27: Daily, # [place] enteric 00 30 tab, 0 coated Refill(s), tablet Pharmacy: [facility], 162.56, cm, 08/29/20 5:30:00 CDT, Height, 97.273, kg, 08/29/20 5:30:00 CDT, Weight pantoprazol 2021-0 Yes 40 mg = 1 M emoria e 40 mg 4-09 tab, PO, l oral 15:27: Daily, # [place] enteric 00 30 tab, 0 coated Refill(s), tablet Pharmacy: [facility], 162.56, cm, 08/29/20 5:30:00 CDT, Height, 97.273, kg, 08/29/20 5:30:00 CDT, Weight pantoprazol 2021-0 Yes 40 mg = 1 M emoria e 40 mg 4-09 tab, PO, l oral 15:27: Daily, # [place] enteric 00 30 tab, 0 coated Refill(s), tablet Pharmacy: [facility], 162.56, cm, 08/29/20 5:30:00 CDT, Height, 97.273, kg, 08/29/20 5:30:00 CDT, Weight pantoprazol 2021-0 Yes 40 mg = 1 M emoria e 40 mg 4-09 tab, PO, l oral 15:27: Daily, # [place] enteric 00 30 tab, 0 coated Refill(s), tablet Pharmacy: [facility], 162.56, cm, 08/29/20 5:30:00 CDT, Height, 97.273, kg, 08/29/20 5:30:00 CDT, Weight pantoprazol 2020-0 Yes 40 mg = 1 M emoria e 40 mg 4-09 tab, PO, l oral 15:27: Daily, # [place] enteric 00 30 tab, 0 coated Refill(s), tablet Pharmacy: [facility], 162.56, cm, 08/29/20 5:30:00 CDT, Height, 97.273, kg, 08/29/20 5:30:00 CDT, Weight pantoprazol 2020-0 Yes 40 mg = 1 M emoria e 40 mg 4-09 tab, PO, l oral 15:27: Daily, # [place] enteric 00 30 tab, 0 coated Refill(s), tablet Pharmacy: [facility], 162.56, cm, 08/29/20 5:30:00 CDT, Height, [...] Skylar nn 00 tab, 0 Refill(s), Pharmacy: [facility] [address], 162.56, cm, 08/29/20 5:30:00 CDT, Height, 97.273, kg, 08/29/20 5:30:00 CDT, Weight pantoprazol 2020-0 No 40 mg = 1 M emoria e 40 mg 4-09 tab, PO, l oral 15:26: Daily, # [place] enteric 00 30 tab, 0 coated Refill(s) tablet sucralfate 2020-0 Yes 1 gm = 1 Mem oria 1 g oral 4-09 tab, PO, l tablet 15:26: Q12H, # 28 Sk[place] nn 00 tab, 0 Refill(s), Pharmacy: [facility], 162.56, cm, 08/29/20 5:30:00 CDT, Height, 97.273, kg, 08/29/20 5:30:00 CDT, Weight pantoprazol 2020-0 No 40 mg = 1 M emoria e 40 mg 4-09 tab, PO, l oral 15:26: Daily, # [place] enteric 00 30 tab, 0 coated Refill(s) tablet sucralfate 2020-0 Yes 1 gm = 1 Mem oria 1 g oral 4-09 tab, PO, l tablet 15:26: Q12H, # 28 [place] nn 00 tab, 0 Refill(s), Pharmacy: [facility], 162.56, cm, 08/29/20 5:30:00 CDT, Height, 97.273, kg, 08/29/20 5:30:00 CDT, Weight pantoprazol 2020-0 No 40 mg = 1 M emoria e 40 mg 4-09 tab, PO, l oral 15:26: Daily, # [place] enteric 00 30 tab, 0 coated Refill(s) tablet sucralfate 2020-0 Yes 1 gm = 1 Mem oria 1 g oral 4-09 tab, PO, l tablet 15:26: Q12H, # 28 Sk[place] nn 00 tab, 0 Refill(s), Pharmacy: [place] [address], 162.56, cm, 08/29/20 5:30:00 CDT, Height, 97.273, [...] nn 00 tab, 0 Refill(s), Pharmacy: [facility], 162.56, cm, 08/29/20 5:30:00 CDT, Height, [...] nn 00 tab, 0 Refill(s), Pharmacy: [facility], 162.56, cm, 08/29/20 5:30:00 CDT, Height, [...] nn 00 tab, 0 Refill(s), Pharmacy: [facility], 162.56, cm, 08/29/20 5:30:00 CDT, Height, 97.273, kg, 08/29/20 5:30:00 CDT, Weight Saline No Notes: Memoria Flush 0.9% 4-09 (Same as: l 15:25: BD [place] 00 Posiflush) Lorazepam No Notes: Memori a 4-09 (Same as: l 15:25: Ativan) Marty Saline No Notes: Memoria Flush 0.9% 4-09 (Same as: l 15:25: BD [place] 00 Posiflush) Lorazepam No Notes: Memori a 4-09 (Same as: l 15:25: Ativan) [place] 00 Saline No Notes: Memoria Flush 0.9% 4-09 (Same as: l 15:25: BD [place] 00 Posiflush) Saline No Notes: Memoria Flush 0.9% 4-09 (Same as: l 15:25: BD [place] 00 Posiflush) Lorazepam No Notes: Memori a 4-09 (Same as: l 15:25: Ativan) Lorazepam No Notes: Memori a 4-09 (Same as: l 15:25: Ativan) [place] 00 Saline No Notes: Memoria Flush 0.9% 4-09 (Same as: l 15:25: BD [place] Posiflush) Lorazepam No Notes: Memori a 4-09 (Same as: l 15:25: Ativan) [place] 00 Saline No Notes: Memoria Flush 0.9% [...] 08-29 Drug form: l 14:49: INJ, ONCE, [place] 00 Stop date: 08/29/20 9:49:00 CDT propofol 202-0 [...] 08-29 Route: PO, l 14:01: Drug form: [place] 00 TAB, ONCE, Dosing Weight 97.273, kg, [...] lisa 08-29 Route: l 14:01: IVP, PRN, [place] 00 Dosing Weight 97.273, kg, PRN Benzodiaze [...] Memori a 08-29 Route: l 14:01: IVP, [place] 00 Q5Min, Dosing Weight 97.273, kg, PRN [...] Memori a 08-29 Route: l 14:01: IVP, [place] 00 Q2MIN, Dosing Weight 97.273, kg, PRN [...] Memori a 08-29 Route: l 14:01: IVP, [place] 00 Q5Min, Dosing Weight 97.273, kg, PRN [...] oria ne 08-29 Route: l 14:01: IVP, [place] 00 Q5Min, Dosing Weight 97.273, kg, PRN Pain Score 7-10, Start date: 08/29/20 9:01:00 CDT, Duration: 4 doses or times, Stop date: Limited # of times Labetalol 2021-0 No 10 mg, Memori a 08-29 Route: l 14:01: IVP, [place] 00 Q5Min, Dosing Weight 97.273, kg, PRN [...] lisa 08-29 Route: l 14:01: IVP, PRN, [place] 00 Dosing Weight 97.273, kg, PRN Benzodiaze [...] 08-29 Route: PO, l 14:01: Drug form: [place] 00 TAB, ONCE, Dosing Weight 97.273, kg, [...] lisa 08-29 Route: l 14:01: IVP, PRN, [place] Dosing Weight 97.273, kg, PRN Benzodiaze pine Reversal, Initial dose, Start date: 08/29/20 9:01:00 CDT, Duration: 30 day, Stop date: 09/28/20 9:00:00 CDT Naloxone 1-0 No 0.4 mg, Memori a 08-29 Route: l 14:01: IVP, [place] 00 Q2MIN, Dosing Weight 97.273, kg, PRN Narcotic Reversal, Start date: 08/29/20 9:01:00 CDT, Duration: 8 doses or times, Stop date: Limited # of times Ondansetron 1-0 No 4 mg, Memor ia 08-29 Route: l 14:01: IVP, ONCE, [place] 00 Dosing Weight 97.273, kg, PRN Nausea & Vomiting, Start date: 08/29/20 9:01:00 CDT Labetalol 1-0 No 10 mg, Memori a 08-29 Route: l 14:01: IVP, [place] 00 Q5Min, Dosing Weight 97.273, kg, PRN Elevated BP, Start date: 08/29/20 9:01:00 CDT, Duration: 5 doses or times, Stop date: Limited # of times Acetaminoph 1-0 No 1,000 mg, M emoria en 08-29 Route: PO, l 14:01: Drug form: [place] 00 TAB, ONCE, Dosing Weight 97.273, kg, [...] oria ne 08-29 Route: l 14:01: IVP, [place] 00 Q5Min, Dosing Weight 97.273, kg, PRN [...] ONCE Stop date: 08/29/20 8:52:00 CDT rocuronium 2020-0 [...] ONCE, Stop date: 08/29/20 8:42:00 CDT fentaNYL 1-0 No Route: IV, Mem oria (ANES) 08-29 Drug form: l 13:42: INJ, ONCE, Marty 00 Stop date: 08/29/20 8:42:00 CDT norepinephr 2020-0 No Route: IV, Memoria ine (ANES) 08-29 Drug form: l 10 13:15: INJ, Start [place] microgram date: 08/29/20 8:15:00 CDT, Stop date: 08/29/20 9:15:00 CDT norepinephr 2020-0 No Route: IV, Memoria ine (ANES) 08-29 Drug form: l 10 13:15: INJ, Start [place] microgram date: 08/29/20 8:15:00 CDT, Stop date: 08/29/20 9:15:00 CDT norepinephr 2020-0 No Route: IV, Memoria ine (ANES) 08-29 Drug form: l 10 13:15: INJ, Start [place] microgram date: 08/29/20 8:15:00 CDT, Stop date: [...] Drug form: l 10 13:15: INJ, Start [place] microgram 00 date: 08/29/20 8:15:00 CDT, Stop date: 08/29/20 9:15:00 CDT norepinephr 2020-0 No Route: IV, Memoria ine (ANES) 08-29 Drug form: l 10 13:15: INJ, Start Marty microgram 00 date: 08/29/20 8:15:00 CDT, Stop date: 08/29/20 9:15:00 CDT Sodium 2021-0 No Route: IV, Memor ia Chloride 4-09 Total l 0.9% IV 12:30: Volume: [place] (ANES) 1000 00 1,000, mL Start date: 08/29/20 7:30:00 CDT, Stop date: 08/29/20 8:30:00 CDT Sodium 2021-0 No Route: IV, Memor ia Chloride 4-09 Total l 0.9% IV 12:30: Volume: Marty (ANES) 1000 00 1,000, mL Start date: 08/29/20 7:30:00 CDT, Stop date: 08/29/20 8:30:00 CDT Sodium 2021-0 No Route: IV, Memor ia Chloride 4-09 Total l 0.9% IV 12:30: Volume: [place] (ANES) 1000 00 1,000, mL Start date: 08/29/20 7:30:00 CDT, Stop date: 08/29/20 8:30:00 CDT Sodium 2021-0 No Route: IV, Memor ia Chloride 4-09 Total l 0.9% IV 12:30: Volume: Marty (ANES) 1000 00 1,000, mL Start date: 08/29/20 7:30:00 CDT, Stop date: 08/29/20 8:30:00 CDT Sodium 2021-0 No Route: IV, Memor ia Chloride 4-09 Total l 0.9% IV 12:30: Volume: [place] (ANES) 1000 00 1,000, mL Start date: 08/29/20 7:30:00 CDT, Stop date: 08/29/20 8:30:00 CDT Sodium 2021-0 No Route: IV, Memor ia Chloride 4-09 Total l 0.9% IV 12:30: Volume: [place] (ANES) 1000 00 1,000, mL Start date: [...] PO, l Hydrochlori 11:42: Q24H, # 30 [place] de 150 MG 00 tab, 0 Extended [...] tab, 0 Extended Refill(s) Release Tablet 24 Yes 150 mg = 1 Memori a Bupropion -09 tab, PO, l Hydrochlori 11:42: Q24H, # 30 [place] de 150 MG 00 tab, 0 Extended Refill(s) Release Tablet 24 HR Yes 150 mg = 1 Memori a Bupropion 4-09 tab, PO, l Hydrochlori 11:42: Q24H, # 30 [place] de 150 MG 00 tab, 0 Extended Refill(s) Release Tablet 24 HR Yes 150 mg = 1 Memori a Bupropion -09 tab, PO, l Hydrochlori 11:42: Q24H, # 30 Marty de 150 MG 00 tab, 0 Extended Refill(s) Release Tablet apixaban 0 Yes 5 mg, PO, Me moria MG Oral 4- Q12H, tab, l Tablet 11:41: 0 [place] [Eliquis] 00 Refill(s), For Atrial Fibrilatio n [...] 4-09 Q12H, tab, l Tablet 11:41: 0 [place] [Eliquis] 00 Refill(s), For Atrial Fibrilatio n apixaban 2020-0 Yes 5 mg, PO, Me moria MG Oral 4-09 Q12H, tab, l Tablet 11:41: 0 [place] [Eliquis] 00 Refill(s), For Atrial Fibrilatio n [...] tab, PO, l tablet 11:38: Daily, # [place] 00 90 tab, 3 Refill(s) AMIODarone Yes 200 mg = 1 M emoria 200 mg oral 4-09 tab, PO, l tablet 11:38: Daily, # [place] 00 90 tab, 3 Refill(s) AMIODarone Yes 200 mg = 1 M emoria 200 mg oral 4-09 tab, PO, l tablet 11:38: Daily, # [place] 00 90 tab, 3 Refill(s) AMIODarone Yes 200 mg = 1 M emoria 200 mg oral 4-09 tab, PO, l tablet 11:38: Daily, # [place] 00 90 tab, 3 Refill(s) AMIODarone Yes 200 mg = 1 M emoria 200 mg oral 4-09 tab, PO, l tablet 11:38: Daily, # [place] 00 90 tab, 3 Refill(s) AMIODarone Yes 200 mg = 1 M emoria 200 mg oral 4-09 tab, PO, l tablet 11:38: Daily, # [place] 00 90 tab, 3 Refill(s) AMIODarone Yes 200 mg = 1 M emoria 200 mg oral 4-09 tab, PO, l tablet 11:38: Daily, # [place] 00 90 tab, 3 Refill(s) normal 2021-0 [...] Eliquis 5 0 Yes Methodi mg tablet -[facility] 00:00: [facility]osp[facility] 00 l apixaban Yes 5mg Take 5 mg Univ ers (ELIQUIS) 5 3-17 by mouth 2 it y of mg tablet 08:18: (two) [place] 30 times Medical daily. Branch amiodarone Yes [...] 4-14 ity of mcg/actuati 00:00: on inhaler Medical Branch albuterol 2019-0 Yes Univers 90 4-14 ity of mcg/actuati 00:00: [place] on inhaler Medical Branch albuterol 2019-0 Yes Univers 90 4-14 ity of mcg/actuati 00:00: on inhaler Medical Branch albuterol [place] albuterol [place] (2.5 [...] tablet 00 (two) times a day. DESCOVY 2016-0 Yes 1{tbl} QD Take 1 Method i 200-25 mg 3-[address] tablet 00:00: mouth Hospita 00 daily. l ISENTRESS 2017-0 Yes 400mg Q.5D Take 400 Met hodi 400 mg 3-[address] tablet 00:00: mouth 2 Hospita 00 (two) l times a day. Immunizations Ordered Filled Immunization Date Status Comments [facility] e Immunization Name Name PEG COVID-19 2020-07-23 Completed [facility] MRNA VACCINATION 00:00:00 [facility] PFIZER COVID-19 2020-07-02 Completed [facility] MRNA VACCINATION 00:00:00 [facility] Influenza Virus 2017-03-08 Completed Universit y of Vaccine 00:00:00 [facility] Influenza Virus 2017-03-08 Completed Universit y of Vaccine 00:00:00 [facility] Influenza Virus 2017-03-08 Completed Universit y of Vaccine 00:00:00 [facility] Influenza Virus 2017-03-08 Completed Universit y of Vaccine 00:00:00 [facility] Influenza Virus 2017-03-08 Completed Universit y of Vaccine 00:00:00 [facility] Influenza Virus 2014-01-30 Completed Universit y of Vaccine (3+ yrs) 00:00:00 [facility] Branch Pneumococcal 13 2014-01-30 Completed Universit y of Conjugate, PCV13 00:00:00 [facility] dical (Prevnar 13) Branch Influenza Virus 2014-01-30 Completed Universit y of Vaccine (3+ yrs) 00:00:00 [facility] Branch Pneumococcal 13 2014-01-30 Completed Universit y of Conjugate, PCV13 00:00:00 [facility] dical (Prevnar 13) Branch Influenza Virus 2014-01-30 Completed Universit y of Vaccine (3+ yrs) 00:00:00 [facility] Pneumococcal 13 2014-01-30 Completed Universit y of Conjugate, PCV13 00:00:00 [facility] dical (Prevnar 13) Branch Influenza Virus 2014-01-30 Completed Universit y of Vaccine (3+ yrs) 00:00:00 [facility] Branch Pneumococcal 13 2014-01-30 Completed Universit y of Conjugate, PCV13 00:00:00 [facility] dical (Prevnar 13) Branch Influenza Virus 2014-01-30 Completed Universit y of Vaccine (3+ yrs) 00:00:00 [facility] Branch Pneumococcal 13 2014-01-30 Completed Universit y of Conjugate, PCV13 00:00:00 [facility] dical (Prevnar 13) Branch Pneumococcal 2012-02-16 Completed University o f Polysaccharide, 00:00:00 [place] [facility] PPSV23 (PNEUMOVAX) Branch Influenza Virus 2012-02-16 Completed Universit y of Vaccine 00:00:00 [facility] PPD (TB) 2012-02-16 Completed University of 00:00:00 [facility] Pneumococcal 2012-02-16 Completed University o f Polysaccharide, 00:00:00 [place] [facility] ical PPSV23 (PNEUMOVAX) Branch Influenza Virus 2012-02-16 Completed Universit y of Vaccine 00:00:00 [facility] PPD (TB) 2012-02-16 Completed University of 00:00:00 [facility] Pneumococcal 2012-02-16 Completed University o f Polysaccharide, 00:00:00 [place] [facility] PPSV23 (PNEUMOVAX) Branch Influenza Virus 2012-02-16 Completed Universit y of Vaccine 00:00:00 [facility] PPD (TB) 2012-02-16 Completed University of 00:00:00 [facility] Pneumococcal 2012-02-16 Completed University o f Polysaccharide, 00:00:00 [place] [facility] ical PPSV23 (PNEUMOVAX) Branch Influenza Virus 2012-02-16 Completed Universit y of Vaccine 00:00:00 [facility] PPD (TB) 2012-02-16 Completed University of 00:00:00 [facility] Pneumococcal 2012-02-16 Completed University o f Polysaccharide, 00:00:00 [place] [facility] ical PPSV23 (PNEUMOVAX) Branch Influenza Virus 2012-02-16 Completed Universit y of Vaccine 00:00:00 [facility] PPD (TB) 2012-02-16 Completed University of 00:00:00 [facility] Hep B, Adol or Pedi 2011-09-01 Completed Unive rsity of Dosage 00:00:00 [facility] Hep B, Adol or Pedi 2011-09-01 Completed Unive rsity of Dosage 00:00:00 [facility] Hep B, Adol or Pedi 2011-09-01 Completed Unive rsity of Dosage 00:00:00 [facility] Hep B, Adol or Pedi 2011-09-01 Completed Unive rsity of Dosage 00:00:00 [facility] Hep B, Adol or Pedi 2011-09-01 Completed Unive rsity of Dosage 00:00:00 [facility] Branch Hep B, Adol or Pedi 2011-03-17 Completed Unive rsity of Dosage 00:00:00 [facility] Hep B, Adol or Pedi 2011-03-17 Completed Unive rsity of Dosage 00:00:00 [facility] Hep B, Adol or Pedi 2011-03-17 Completed Unive rsity of Dosage 00:00:00 [facility] Hep B, Adol or Pedi 2011-03-17 Completed Unive rsity of Dosage 00:00:00 [facility] Hep B, Adol or Pedi 2011-03-17 Completed Unive rsity of Dosage 00:00:00 [facility] Influenza Virus 2011-02-10 Completed Universit y of Vaccine 00:00:00 [facility] Hep B, Adol or Pedi 2011-02-10 Completed Unive rsity of Dosage 00:00:00 [facility] Influenza Virus 2011-02-10 Completed Universit y of Vaccine 00:00:00 [facility] Hep B, Adol or Pedi 2011-02-10 Completed Unive rsity of Dosage 00:00:00 [facility] Influenza Virus 2011-02-10 Completed Universit y of Vaccine 00:00:00 [facility] Hep B, Adol or Pedi 2011-02-10 Completed Unive rsity of Dosage 00:00:00 [facility] Influenza Virus 2011-02-10 Completed Universit y of Vaccine 00:00:00 [facility] Hep B, Adol or Pedi 2011-02-10 Completed Unive rsity of Dosage 00:00:00 [facility] Influenza Virus 2011-02-10 Completed Universit y of Vaccine 00:00:00 [facility] Hep B, Adol or Pedi 2011-02-10 Completed Unive rsity of Dosage 00:00:00 [facility] PPD (TB) 2010-11-18 Completed University of 00:00:00 [facility] TDAP (ADACEL) 2010-11-18 Completed University of VACCINE 00:00:00 [facility] PPD (TB) 2010-11-18 Completed University of 00:00:00 [facility] TDAP (ADACEL) 2010-11-18 Completed University of VACCINE 00:00:00 [facility] PPD (TB) 2010-11-18 Completed University of 00:00:00 [facility] TDAP (ADACEL) 2010-11-18 Completed University of VACCINE 00:00:00 [facility] PPD (TB) 2010-11-18 Completed University of 00:00:00 [facility] TDAP (ADACEL) 2010-11-18 Completed University of VACCINE 00:00:00 [facility] PPD (TB) 2010-11-18 Completed University of 00:00:00 [facility] TDAP (ADACEL) 2010-11-18 Completed University of VACCINE 00:00:00 [facility] HEPATITIS A 2004-03-02 Completed University of 00:00:00 [facility] HEPATITIS A 2004-03-02 Completed University of 00:00:00 [facility] HEPATITIS A 2004-03-02 Completed University of 00:00:00 [facility] HEPATITIS A 2004-03-02 Completed University of 00:00:00 [facility] HEPATITIS A 2004-03-02 Completed University of 00:00:00 [facility] HEPATITIS A 2003-08-01 Completed University of 00:00:00 [facility] HEPATITIS A 2003-08-01 Completed University of 00:00:00 [facility] HEPATITIS A 2003-08-01 Completed University of 00:00:00 [facility] HEPATITIS A 2003-08-01 Completed University of 00:00:00 [facility] HEPATITIS A 2003-08-01 Completed University of 00:00:00 [facility] Pneumococcal 2001-10-04 Completed University o f Polysaccharide, 00:00:00 [place] [facility] ical PPSV23 (PNEUMOVAX) Branch PPD (TB) 2001-10-04 Completed University of 00:00:00 [facility] Pneumococcal 2001-10-04 Completed University o f Polysaccharide, 00:00:00 [place] [facility] PPSV23 (PNEUMOVAX) Branch PPD (TB) 2001-10-04 Completed University of 00:00:00 [facility] Pneumococcal 2001-10-04 Completed University o f Polysaccharide, 00:00:00 [place] [facility] PPSV23 (PNEUMOVAX) Branch PPD (TB) 2001-10-04 Completed University of 00:00:00 [facility] Pneumococcal 2001-10-04 Completed University o f Polysaccharide, 00:00:00 [place] [facility] PPSV23 (PNEUMOVAX) Branch PPD (TB) 2001-10-04 Completed University of 00:00:00 [facility] Pneumococcal 2001-10-04 Completed University o f Polysaccharide, 00:00:00 [place] [facility] PPSV23 (PNEUMOVAX) Branch PPD (TB) 2001-10-04 Completed University of 00:00:00 [facility] Vital Signs Vital Name Observation Time Observation Value Comments Source Systolic blood 2021-12-13 06:39:53 170 mm[Hg] Univer sity of pressure [facility] Diastolic blood 2021-12-13 06:39:53 96 mm[Hg] Unive rsity of pressure [facility] Heart rate 2021-12-13 06:39:53 60 /min [facility] [place] [facility] Respiratory rate 2021-12-13 06:39:53 18 /min Univ ersity of [facility] Oxygen saturation in 2021-12-13 06:39:53 98 /min University of Arterial blood by [place] [employer] [facility] Pulse oximetry Branch Body temperature 2021-12-13 04:57:00 36.56 Amina [facility] ersity of [facility] Body height 2021-12-13 04:57:00 162.6 cm Universi ty of [place] [facility] [place] Body weight 2021-12-13 04:57:00 90.719 kg [facility] [place] [facility] BMI 2021-12-13 04:57:00 34.33 kg/m2 Universi ty of [facility] Systolic blood 2021-08-21 13:13:00 191 mm[Hg] Univer sity of pressure [facility] Diastolic blood 2021-08-21 13:13:00 99 mm[Hg] Unive rsity of pressure [facility] Heart rate 2021-08-21 13:13:00 52 /min Universi ty of [facility] Body temperature 2021-08-21 13:11:00 36.5 Amina Univ ersity of [facility] Branch Respiratory rate 2021-08-21 13:11:00 16 /min Univ ersity of [facility] Body height 2021-08-21 13:11:00 162.6 cm [facility] [place] [facility] Body weight 2021-08-21 13:11:00 93.759 kg [facility] [place] [facility] BMI 2021-08-21 13:11:00 35.48 kg/m2 Universi ty of [facility] Oxygen saturation in 2021-08-21 13:11:00 95 /min University of Arterial blood by [facility] Pulse oximetry Branch Systolic blood 2021-07-14 15:18:00 142 mm[facility]Hg[facility] Diastolic blood 2021-07-14 15:18:00 76 mm[Hg] [facility] Heart rate 2021-07-14 15:18:00 61 /[facility] Body height 2021-07-14 15:18:00 [facility] 2021-07-14 15:18:00 94.802 [facility] BMI 2021-07-14 15:18:00 35.87 kg/m2 [facility] Systolic blood 2020-12-08 15:48:00 125 mm[Hg] Method [facility] pressure Diastolic blood 2020-12-08 15:48:00 76 mm[Hg] [facility] pressure Heart rate 2020-12-08 15:48:00 64 /min [facility] Body temperature 2020-12-08 15:48:00 36.61 Amina [facility] Respiratory rate 2020-12-08 15:48:00 17 /min [facility] Body height 2020-12-08 15:48:00 162.6 cm [facility] Body weight 2020-12-08 15:48:00 98.884 kg [facility] BMI 2020-12-08 15:48:00 37.42 kg/m2 [facility] Oxygen saturation in 2020-12-08 15:48:00 97 /min [facility] Arterial blood by Pulse oximetry Respitory Rate 2020-08-30 13:00:00 Memori al Marty Systolic (mm Hg) 2020-08-30 13:00:00 Caesar rial [place] Diastolic (mm Hg) 2020-08-30 13:00:00 Mem orial [place] Systolic (mm Hg) 2020-08-30 11:00:00 Caesar rial [place] Diastolic (mm Hg) 2020-08-30 11:00:00 Mem orial [place] Temperature Oral (F) 2020-08-30 11:00:00 98.4 F [facility] [place] Respitory Rate 2020-08-30 11:00:00 Memori al [place] Respitory Rate 2020-08-30 10:00:00 Memori al [place] Systolic (mm Hg) 2020-08-30 10:00:00 Caesar rial [place] Diastolic (mm Hg) 2020-08-30 10:00:00 Mem orial [place] Temperature Oral (F) 2020-08-30 00:00:00 96.9 F [facility] [place] Temperature Oral (F) 2020-08-29 11:26:00 97.6 F [facility] Marty Height 2020-08-29 10:30:00 162.56 [facility] 2020-08-29 10:30:00 [facility] BMI Calculated 2020-08-29 10:30:00 [place]en Hammond Procedures Procedure Date / Time Performing Clinician Source Performed MEDICATION CORRESPONDENCE 2022-01-06 05:01:00 Doctor Unassigned, [facility] Name [facility] MEDICATION CORRESPONDENCE 2021-12-25 05:01:00 Doctor Unassigned, [facility] Name [facility] CT CERVICAL SPINE WO 2021-12-13 05:48:16 Bill Guo [facility] CONTRAST [facility] CT HEAD WO CONTRAST 2021-12-13 05:48:16 [facility] LUMBAR SPINE WO 2021-12-13 05:48:16 Bill Guo [facility] CONTRAST [facility] CT THORACIC SPINE WO 2021-12-13 05:48:16 Bill Guo [facility] CONTRAST [facility] Branch ECG 12-LEAD 2021-07-14 15:14:00 Elan Lira [facility] [id number] 2021-06-17 00:00:00 RIKY Freedman [facility] GASTROINTESTINAL PANEL 2020-12-08 22:21:00 Eliseo Arce [facility] Hospital XR ABDOMEN 1 VW 2020-12-08 18:06:32 Eliseo Arce spital OR [place] < 1 HOUR 2020-09-05 22:39:00 Eliseo Arce spital SURGICAL PATHOLOGY REQUEST 2020-09-05 21:54:00 Eliseo Arce [facility] XR CHEST 1 VW PORTABLE 2020-09-05 19:55:00 Eliseo Arce Meth[facility] DISCHARGE PATIENT 2020-09-05 17:27:55 Lucas Harris [facility] HI AN ELECTIVE 2020-09-05 16:47:23 Kirit Flood V. [facility] ENDOTRACHEAL AIRWAY EGD, INTRAOPERATIVE 2020-09-05 16:27:00 Eliseo Arce [facility] PARTIAL THROMBOPLASTIN 2020-09-05 15:04:00 [facility] TIME (PTT) M. PROTHROMBIN TIME WITH INR 2020-09-05 15:04:00 Mindy Maharaj [facility] M. Plan of Care Planned Activity Planned Date Details Comments Source Future Scheduled 2021-08-26 Screening for [facility] Test 13:02:23 malignant neoplasm of cervix (procedure) [code = 828424186] Future Scheduled 2021-08-26 BREAST CANCER [facility] Test 13:02:23 SCREENING [code = BREAST CANCER SCREENING] Future Scheduled 2021-08-26 COLONOSCOPY SCREENING [facility] Test 13:02:23 [code = COLONOSCOPY SCREENING] Future Scheduled 2021-08-26 Screening for [facility] Test 13:02:23 malignant neoplasm of lung (procedure) [code = 390860984] Future Scheduled 2021-08-26 SHINGLES VACCINES (#1) [facility] Test 13:02:23 [code = SHINGLES VACCINES (#1)] Future Scheduled 2021-08-26 COVID-19 VACCINE (3 - [facility] Test 13:02:23 Pfizer risk 4-dose series) [code = COVID-19 VACCINE (3 - Pfizer risk 4-dose series)] Future Scheduled 2021-08-26 65+ PNEUMOCOCCAL [facility] Test 13:02:23 VACCINE (4 of 4 - PPSV23) [code = 65+ PNEUMOCOCCAL VACCINE (4 of 4 - PPSV23)] Future Scheduled 2021-08-26 INFLUENZA VACCINE [facility] Test 13:02:23 [code = INFLUENZA VACCINE] Encounters Start End Encounter Admission Attending Care Care Encounter Source Date/Time Date/Time Type Type Clinicians Facility Department ID 2021-11-16 Outpatient [facility] [id number] [place] 10:32:47 [id number] Health 2021-08-03 [id number] 11:30:00 Mike [id number] [facility] 2021-07-14 Outpatient JENNY [facility] [id number] [place] 09:33[facility]16 Inpatient WINTER Leal OUTD [id number] [facility] 08:30:00 Mike [id number] [facility] 2021-06-15 Inpatient WINTER Leal OUTD [id number] [facility] 10:30:00 Mike [id number] [facility] 2022-02-26 2022-02-26 Outpatient [facility] [id number] Univers 08:30:00 08:30:00 SHELTON [id number] [facility] 2022-02-26 2022-02-26 Outpatient [facility] [id number] Univers 08:30:00 08:30:00 SANTIAGO [facility] 2022-01-06 2022-01-06 Orders Doctor FERMIN [id number] Univers 00:00:00 00:00:00 Only Unassigned, JACKELINE [id number] ity of [facility] [id number] Yomi as [phone] [facility] 009 [place] 2021-12-25 2021-12-25 Orders Doctor FERMIN [id number] Univers 00:00:00 00:00:00 Only Unassigned, JACKELINE [id number] ity of [facility] [id number] Yomi as [phone] [facility] 009 Branch 2021-12-12 2021-12-13 Emergency X Bill GUO [facility] ERT [id number] Univers 23:53:00 01:52:00 ity [facility] 2021-12-12 2021-12-13 Emergency Bill Guo [facility] [id number] Univers 23:53:00 01:52:00 Kiersten BULLOCK [id number] i ty [id number] [id number] [facility] 084 Branch 2021-11-20 2021-11-20 Wireless Team Member [facility] UNIVERSIT [id number] Univers 09:45:00 10:00:00 Visit Santiago Cardenas [facility] [id number] ity [id number] [id number] [facility] 316 Branch 2021-11-20 2021-11-20 Outpatient R KEZIA [facility] [id number] Univers 09:45:00 09:45:00 SANTIAGO [facility] 2021-11-20 2021-11-20 Outpatient [facility] [id number] -20 Univers 09:45:00 09:45:00 [id number] [facility] 2021-08-21 2021-08-21 Office FRANCO Cardenas 1.2.956.578 [id number] [id number] Univers 08:30:00 09:00[facility]13[facility]10 i ty of [place] [id number] [facility] [address] 2021-08-05 2021-08-05 Outpatient WINTER LealCL [id number] [facility] 05:24:00 05:24:00 Mike 31 [facility] 2021-08-05 2021-08-05 Outpatient WINTER Leal OUTD [id number] 6-2 [facility] 05:24:00 05:24:00 Mike [id number] [facility] 2021-07-14 2021-07-14 Office KIMBERLEY Lira 6400 1.2.840.114 13 [id number] [place] 08:45:00 09:34:[address] 350.1.13.58 Health 9.2.7.2.686 [id number] 1 2021-07-09 2021-07-09 Telephone KIMBERLEY Layton 6400 1.2.840.114 [id number] [place] 00:00:00 00:00:00 Marí[address]amaris [address] 350.1.13.58 Health 9.2.7.2.686 [id number] 1 2021-06-17 2021-06-17 Inpatient WINTER Leal INTE.02 [id number] [facility] 10:56:00 14:36:00 Mike [id number] [facility] 2021-06-17 2021-06-17 Inpatient RAUL Lund, HCACL INTE.02 [id number] [facility] 10:56:00 14:36:00 Mike 47 [facility] 2021-04-28 2021-04-28 Telephone Jailyn, 1.2.840.1 [id number] Methodi 00:00:00 00:00:[address] 3.430.2.7 Hospit a .3.751099 l .8 2021-03-31 2021-03-31 Orders Carol Ann, 1.2.840.1 [id number] Methodi 00:00:00 00:00:00 Only Sarai Lieberman 15788.1.1 979 s t 3.430.2.7 Hospit a .3.102469 l .8 2021-03-24 2021-03-24 Telephone Jailyn, 1.2.840.1 [id number] Methodi 00:00:00 00:00:[address] 3.430.2.7 Hospit a .3.315399 l .8 2021-01-19 2021-01-19 Telephone Prabhu, 1.2.840.1 [id number] 2100 [id number] Methodi 00:00:00 00:00:[address] 3.430.2.7 Hospit a .3.817587 l .8 2020-12-12 2020-12-12 Office Hematpour, UTP 6400 1.2.840.114 12 [id number] 07:42:02 08:18:[address] 350.1.13.58 9.2.7.2.686 [id number] 1 2020-12-09 2020-12-09 Telephone Carol Ann, 1.2.840.1 [id number] Methodi 00:00:00 00:00:00 Sarai Lieberman 47788.1.1 316 s t 3.430.2.7 Hospit a .3.319928 l .8 2020-12-08 2020-12-08 [facility], 1.2.840.1 [id number] 2100 799856 Methodi 12:35:54 23:59:00 Encounter Ray 77466.1.[address] 3.430.2.7 Hospit a .3.732542 l .8 2020-12-08 2020-12-08 Lab [facility], 1.2.840.1 [id number] 16263 Methodi 17:25:00 17:30:[address] 3.430.2.7 Hospit a .3.302003 l .8 2020-12-08 2020-12-08 Office [facility], 1.2.840.1 [id number] 67725 90856 Methodi 10:30:00 11:39:56 Visit Ray 60829.1.[address] 3.430.2.7 Hospit a .3.568387 l .8 2020-12-08 2020-12-08 Travel 1.2.840.1 1.2.415.596 6193 366199 Methodi 00:00:00 00:00:[address] 3.430.2.7 0.2.7.3.698 Ho spita .3.355102 084.8 l .8 2020-12-02 2020-12-02 Wireless Team Member [facility] 1.2.840.114 8 [id number] 10:20:06 10:36:19 Visit HEALTH 350.1.13.10 CLINICS 4.2.7.2.686 [id number] 316 2020-11-25 2020-11-25 Office MEGHA Beltran 1.2.840.114 [id number] 65 11:06:30 11:58:14 Visit Robbi Hairston [employer] 350.1.13.10 [facility] 4.2.7.2.686 MATERNAL [id number] & CHILD [address] [place] [address] 2020-11-252020-11-25 [facility] 1.2.736.218 5989 4592 00:00:00 00:00:00 [facility] 350.1.13.10 [facility] 4.2.7.2.686 [id number] 089 2020-11-25 2020-11-25 Telephone Beltran [facility] 1.2.206.598 7175 0821 00:00:00 00:00:00 Robbi Hairston [employer] 350.1.13.10 [facility] 4.2.7.2.686 MATERNAL [id number] & CHILD [address] [place] [address] 2020-11-14 2020-11-14 Abstract Clark, 1.2.840.1 [id number] [id number] Methodi 00:00:00 00:00:[address] 3.430.2.7 Hospit a .3.699370 l .8 2020-11-14 2020-11-14 Telephone Clark, 1.2.840.1 [id number] 2099 [id number] Methodi 00:00:00 00:00:[address] 3.430.2.7 Hospit a .3.755845 l .8 2020-11-07 2020-11-07 Telephone Diana, [facility] 6400 1.2.840.114 124 [id number] 00:00:00 00:00:[address] 350.1.13.58 9.2.7.2.686 [id number] 1 2020-10-27 2020-10-27 Telephone Jailyn 1.2.840.2 [id number] Methodi 00:00:00 00:00:[address] 3.430.2.7 Hospit a .3.656864 l .8 2020-10-24 2020-10-24 Telephone Clark, 1.2.840.1 [id number] 2099 [id number] Methodi 00:00:00 00:00:[address] 3.430.2.7 Hospit a .3.579940 l .8 2020-10-06 2020-10-12 Telemedici [facility], 1.2.840.1 [id number] Methodi 15:30:00 00:08:46 ne Ray 40323.1.[address] 3.430.2.7 Hospit a .3.110276 l .8 2020-09-30 2020-09-30 [facility], 1.2.840.3 [id number] Methodi 00:00:00 00:00:[address] 3.430.2.7 Hospit a .3.956219 l .8 2020-09-21 2020-09-21 Travel 1.2.840.1 1.2.418.256 9010 900713 Methodi 00:00:00 00:00:[address] 3.430.2.7 0.2.7.3.698 Ho spita .3.165214 084.8 l .8 2020-09-06 2020-09-06 [facility] 1.2.840.1 [id number] 68521 21589 Methodi 17:42:30 23:59:[address] 3.430.2.7 Hospit a .3.524682 l .8 2020-09-06 2020-09-06 [facility], 1.2.840.1 [id number] 2100 [id number] Methodi 16:50:00 17:41:00 Encounter Ray [address]80.1.[address] 3.430.2.7 Hospit a .3.579415 l .8 2020-09-05 2020-09-05 [facility], 1.2.840.1 [id number] 2099 [id number] Methodi 09:17:00 19:45:00 Encounter Ray [address]12.1.[address] 3.430.2.7 Hospit a .3.177732 l .8 2020-09-05 2020-09-05 [facility], 1.2.840.1 [id number] 21000 75587 Methodi 11:30:00 13:15:[address] 3.430.2.7 Hospit a .3.362542 l .8 2020-09-05 2020-09-05 Anesthesia Remigio, 1.2.840.1 [id number] 676 [id number] Methodi 11:27:00 12:20:00 Event Kirit 17001.1.1 243 s t V. 3.430.2.7 Hospit a .3.886115 l .8 2020-09-05 2020-09-05 Travel 1.2.840.1 1.2.761.193 8213 185057 Methodi 00:00:00 00:00:[address] 3.430.2.7 0.2.7.3.698 Ho spita .3.293884 084.8 l .8 2020-09-04 2020-09-04 Telephone Meisenbach, 1.2.840.1 [id number] Methodi 00:00:00 00:00:00 Sarai M. 15071.1.1 762 s t 3.430.2.7 Hospit a .3.954372 l .8 2020-09-02 2020-09-02 Telephone Meisenbach, 1.2.840.0 [id number] Methodi 00:00:00 00:00:00 Sarai M. 09156.1.1 344 s t 3.430.2.7 Hospit a .3.095012 l .8 2020-08-29 2020-08-30 [id number] Mem[facility] 10:20:00 14:10:00 Outpatient r Marty 00 l [facility] 2020-08-29 2020-08-30 Outpatient HEMATPOUR, [facility] CAR 7500 [facility] 05:20:00 09:10:00 BEVERLY Results Test Description Test Time Test Comments Results Result Comments Source Novel Coronavirus 2019 Inhouse 2021-08-03 18:08:00 Test Item Value Reference Range Interpretation Comme nts Novel Coronavirus 2019 Negative Negative Posit bruno results are indicative of the Inhouse (test code = presenc e twZJJW-EaZ-9 RNA, clinical COVNONPUI) correlation wit h patient [...] qualitative detection of nucleic acid s from bfzVHTR-GyL-5 virus and diagn osis of SARS-CoV-2 virusinfection. It is an Emergency Use Authorization ( EUA) testauthorized by the U.S. FDA. BASIC METABOLIC [id number] 09:37:00 Test Item Value Reference Range Interpretation [...] = 9.0 mg/dL 8.0-10.5 N CA) PROTHROMBIN [id number] 09:32:00 Test Item Value Reference Range Interpretation [...] (to prevent recurrent infar ct). 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[facility] - XR CHEST 1 [id number] 00:00:00 [facility] 1955 Sex: F FAX: Carmenza Kelly DO [phone] Midnight: St: ADM FAX: Mike Scales MD [phone] FAX: Bahman Chopra [phone] Name: LIO WATTS [facility] : 1955 Age/S: 66/F [address] [place] [address] Unit #: [id number] Loc: [place] [address] Phys: Bahman Chopra [facility] Acct: [id number] Dis Date: Status: ADM IN PHONE #: [phone] Exam Date: 06/17/2021 1320 FAX #: [phone] Reason: WATCHMAN EXA MS: CPT CODE: [id number] XR CHEST 1 V 30760 PROCEDURE INFORMATION: Exam: XR Chest Exam date and time:06/17/2021 12:09 PM Age: 66 years old Clinical [...] Chopra Technologist: RT Taylor(R) Trnscrd Date/Time/By: 06/17/2021 (0233) : By: Susanna Orig Print D/T: S: 06/17/2021 (3043) PAGE 1 Signed ReportCOVID 19 Asymptomatic IH [id number] 12:29:00 Test Item Value Reference Range Interpretation [...] high or waivedcomplexit y tests. BASIC METABOLIC [id number] 11:37:00 Test Item Value Reference Range Interpretation [...] code = 9.0 mg/dL 8.0-10.5 N CA) [id number] 11:37:00 Test Item Value Reference Range Interpretation Comments PREALBUMIN (test code = PREALB) 24.3 mg/dL 16.0-40.0 N PROTHROMBIN [id number] 11:03:00 Test Item Value Reference Range Interpretation [...] (to prevent recurrent infar ct). CBC W/AUTO [id number] 10:59:00 Test Item Value Reference Range Interpretation [...] 0.0-0.1 N NRBC#) - XR CHEST 2 [id number] 00:00:00 [facility] 1955 Sex: F FAX: RADHAmoCarmenza [phone] Midnight: St: PRE FAX: Mike Scales MD [phone] Name: LIO WATTS [facility] : 1955 Age/S: 66/F [address] [place] [address] Unit #: [id number] Loc: [place] [address] Phys: Mike Lund MD Acct: [id number] Dis Date: Status: PRE SDC PHONE #: [phone] Exam Date: 06/16/2021 1120 FAX #: [phone] Reason: PREOP EXAMS: CPT CODE: [id number] XR CHEST 2 V 70807 PROCEDURE INFORMATION: Exam: XR Chest Exam date [...] Technologist: Danielle Nix RT(R) Trnscrd Date/Time/By: 06/16/2021 (1135) : By: [email or web address] Orig Print D/T: S: 06/16/2021 (8917) PAGE 1 Signed ReportGastrointestinal tipkj9944-50-35 04:35:05 Test Item Value Reference Interpretation Comments [...] Rotavirus PCR (test Not Detected code = 0473668) Salmonella PCR (test Not Detected code = [...] PCR Not Detected (test code = 7124) [facility] gukbtig2343-77-72 19:30:47 Test Item Value Reference Range Interpretation Comments Case number (test [id number] code = 8043464) Surgical pathology See link below for PDF report (test code = Lab Report 2255) Result status (test This is Supplemental code = 1843029) Report for [id number] [facility]2021-04-09 16:31:00 Test Item Value Reference Range Interpretation Comments POC Activated Clotting Time (test code 153 s = POC Activated Clotting Time) [facility]MsibxzoJHJBZWSRCB0770-53-40 16:31:00 Test Item Value Reference Range Interpretation Comments POC Activated Clotting Time (test code 153 s = POC Activated Clotting Time) [facility] HospitalMnuzagaIQMPCUGBVR9826-70-58 16:31:00 Test Item Value Reference Range Interpretation Comments POC Activated Clotting Time (test code 153 s = POC Activated Clotting Time) [facility] HospitalFqrxkezNTFEQETGSO7987-66-15 16:31:00 Test Item Value Reference Range Interpretation Comments POC Activated Clotting Time (test code 153 s = POC Activated Clotting Time) [facility] HospitalPcqcbquRTMURORFEN4232-58-58 16:31:00 Test Item Value Reference Range Interpretation Comments POC Activated Clotting Time (test code 153 s = POC Activated Clotting Time) [facility] HospitalDgggbamTGFREHTKFN6776-29-93 16:31:00 Test Item Value Reference Range Interpretation Comments POC Activated Clotting Time (test code 153 s = POC Activated Clotting Time) [facility] HospitalIatksuwLKVIAJSHLZ1331-56-66 16:31:00 Test Item Value Reference Range Interpretation Comments POC Activated Clotting Time (test code 153 s = POC Activated Clotting Time) [place] 898761-04-09 14:37:00 Test Item Value Reference Range Interpretation Comments POC Activated Clotting Time (test code 454 s = POC Activated Clotting Time) [facility] HospitalYqvwkneQVWYLITQVG6648-19-46 14:37:00 Test Item Value Reference Range Interpretation Comments POC Activated Clotting Time (test code 454 s = POC Activated Clotting Time) [facility] HospitalUiugvlpZVUWLRDQBM2560-14-69 14:37:00 Test Item Value Reference Range Interpretation Comments POC Activated Clotting Time (test code 454 s = POC Activated Clotting Time) [facility] HospitalBkngzsrACSDWBUHYS0619-12-57 14:37:00 Test Item Value Reference Range Interpretation Comments POC Activated Clotting Time (test code 454 s = POC Activated Clotting Time) [facility] HospitalMoufxnqWQVARWQIUP8389-36-89 14:37:00 Test Item Value Reference Range Interpretation Comments POC Activated Clotting Time (test code 454 s = POC Activated Clotting Time) [facility] HospitalImoxxonILKWLSLXNR6163-81-97 14:37:00 Test Item Value Reference Range Interpretation Comments POC Activated Clotting Time (test code 454 s = POC Activated Clotting Time) [facility] HospitalJrjesraORLGSZMDIT7293-04-58 14:37:00 Test Item Value Reference Range Interpretation Comments POC Activated Clotting Time (test code 454 s = POC Activated Clotting Time) [facility] HospitalAbpxsspZCORCIAPDF7535-46-47 14:13:00 Test Item Value Reference Range Interpretation Comments POC Activated Clotting Time (test code 354 s = POC Activated Clotting Time) [facility] HospitalDsuljguRXPQLBSWLG2646-32-00 14:13:00 Test Item Value Reference Range Interpretation Comments POC Activated Clotting Time (test code 354 s = POC Activated Clotting Time) [facility] HospitalYwzjxggUHLJJRFJAT2392-49-43 14:13:00 Test Item Value Reference Range Interpretation Comments POC Activated Clotting Time (test code 354 s = POC Activated Clotting Time) [facility] HospitalYygkrxmVCWKKTUGFL1467-99-61 14:13:00 Test Item Value Reference Range Interpretation Comments POC Activated Clotting Time (test code 354 s = POC Activated Clotting Time) [facility] HospitalZbedcaxKTCBNAWJKD5532-37-75 14:13:00 Test Item Value Reference Range Interpretation Comments POC Activated Clotting Time (test code 354 s = POC Activated Clotting Time) [facility] HospitalPrmxovlXPVAGZFEVU7751-20-99 14:13:00 Test Item Value Reference Range Interpretation Comments POC Activated Clotting Time (test code 354 s = POC Activated Clotting Time) [facility] HospitalMekodalCZURYPKISE5327-36-35 14:13:00 Test Item Value Reference Range Interpretation Comments POC Activated Clotting Time (test code 354 s = POC Activated Clotting Time) [facility] UROFMRH1818-86-59 10:37:00Negative (08/29/20 5:37 AM) [facility] WLBKG7616-22-95 10:37:25880Heghqmrn HermannCHEM PANEL 2020-08-29 10:37:0028[facility] OSAKC8814-66-85 10:37:001.01[facility] FSDZI2634-68-56 10:37:40459Ckdzdftl HermannCHEM PQZJH8637-80-98 10:37:003.8[facility]ann[facility] WNBCQ8448-29-20 10:37:60984Eonuscij HermannCHEM WXASL0842-92-44 10:37:0028[facility] KGQGW4275-53-42 10:37:009.8 [facility] VOKQY9245-35-56 10:37:0011.8[facility]ann[facility] PANEL 2020-08-29 10:37:0059[facility] DLQFD7482-92-95 10:37:002.9[facility] VovygtsYCETTKNWVR8510-81-04 10:37:006.8[facility]orial DkydojcNSCAJFRQLJ2044-85-53 10:37:004.47[facility] SrybfibEEOQHVFXFK0799-63-36 10:37:0010.6[facility] [place] IRUUBPGKLO9097-81-55 10:37:0034.0[facility] XuylrryLVAFQMQCQL3838-38-91 10:37:00 76.1Memorial RcczeqlZZCWCIFMRX1276-76-80 10:37:00 Test Item Value Reference Range Interpretation Comments MCH (test code = MCH) 23.8 pg 27.0-31.0 Memorial DrflwcvWNWINGKTZG7062-34-93 10:37:0031.3[facility] 2020-08-29 10:37:0018.2[facility] ZxmcdgvVXFLIBSDVG3995-43-84 10:37:02051Ucvtixly BfbiqllBVGMVOXZUF9225-71-38 10:37:007.5[facility]orial WkfpnvkHHRAMNAQDD5167-76-54 10:37:00 Test Item Value Reference Range Interpretation Comments PT (test code = PT) 12.8 s 12.0-14.7 Memorial QapekeuJLYZUIAXHO0068-25-75 10:37:00 Test Item Value Reference Range Interpretation Comments INR (test code = INR) 0.97 1 0.85-1.17 Memorial ZqthafbXBRMHWALOU7685-30-88 10:37:00 Test Item Value Reference Range Interpretation Comments PTT (test code = PTT) 25.0 s 22.9-35.8 Memorial OdrovclHZQTAIMWVF5655-02-70 10:37:0070.5[facility] 2020-08-29 10:37:0018.8[facility] AhpbovoCBRNJPLBZD7154-93-60 10:37:009.5[facility] KghfspoKBSVYUYLGR6461-63-14 10:37:000.9[facility]orial JdskucfTYQKKQTJRR2266-80-54 10:37:000.3[facility]orial MesyxxcLQHSXFZDGC0341-50-70 10:37:004.8[facility] [place] PXUYWIMGLK9495-24-60 10:37:001.3[facility] WmlhtbyAYXQHGUCOV7935-51-39 10:37:000.6 Memorial DolqljuOZVYAFRNES5525-04-76 10:37:000.1[facility]ann[facility]OLOGY 2020-08-29 10:37:001+ *ABN*(08/29/20 5:37 AM)[facility] KxekpvbJTRWCHQBCV0590-65-07 10:37:00Not Detected (08/29/20 5:37 AM)[facility]annBL[facility]OD BANK RESULTS 2020-08-29 10:37:00Negative (08/29/20 5:37 AM)[facility]annCHEM CIWAK4571-13-59 10:37:57661Zjfffpqp HermannCHEM JZWJD6572-95-43 10:37:0028[facility]annCHE[facility] NLJFT0710-51-20 10:37:001.01[facility]annCHEM WSSRB3790-62-24 10:37:48493 [facility] MAJJJ8741-53-84 10:37:003.8[facility]annCHEM PANEL 2020-08-29 10:37:73427Tqdfsbrm HermannCHEM PPEBG2217-24-09 10:37:0028[facility]annCHE[facility] RRLAB1016-84-03 10:37:009.8[facility]annCHEM ZMFWN3540-01-28 10:37:0011.8[facility]annCHEM TSHQA1633-89-70 10:37:0059[facility]annCHEM WYIYT3137-09-47 10:37:002.9[facility]orial ZmpvnzyMAMRAEPWZT2882-39-31 10:37:006.8 Memorial FbhwpfgXRTLYJMNAI1748-07-87 10:37:004.47[facility]annHEMATOLOGY 2020-08-29 10:37:0010.6[facility] DeorefjJENSBMIVAM6211-66-56 10:37:0034.0[facility] OvmpgtzOVVHVTOLYN9658-36-16 10:37:0076.1[facility]orial CztsnqvNDMFBMSQTA0797-03-81 10:37:00 Test Item Value Reference Range Interpretation Comments MCH (test code = MCH) 23.8 pg 27.0-31.0 [facility] IxzdiipDWRAGAODKY4255-21-93 10:37:0031.3[facility] 2020-08-29 10:37:0018.2[facility] XwrrxwhSNKEUVNACI9037-59-84 10:37:42289Iwbdjxas BadbdlvWXMHWEACHN2730-61-46 10:37:007.5[facility] YzyvweuOTDORMMTNM1054-14-14 10:37:00 Test Item Value Reference Range Interpretation Comments PT (test code = PT) 12.8 s 12.0-14.7 [facility] SsefkqwVOLLMXEBDS0727-84-11 10:37:00 Test Item Value Reference Range Interpretation Comments INR (test code = INR) 0.97 1 0.85-1.17 [facility] JtflugeBDOZFCDGVR1136-64-99 10:37:00 Test Item Value Reference Range Interpretation Comments PTT (test code = PTT) 25.0 s 22.9-35.8 [facility] BfxycduXEICFQKWTW5594-06-13 10:37:0070.5[facility] 2020-08-29 10:37:0018.8[facility] JwmuwvyBRJMNSHZUQ8080-83-08 10:37:009.5[facility] VjjkswvTEYHZYSGAJ1291-06-65 10:37:000.9[facility] ZkaqxsdYADTQRDXOV9155-67-58 10:37:000.3[facility] ZsxwuimNWSOCERREQ9996-05-41 10:37:004.8[facility] [place] XYWTJVQAHX1399-27-19 10:37:001.3[facility] AkqfifbYXZNVYEHJG5842-98-14 10:37:000.6 Memorial AmkvkgdUJNSZCNRZK9868-92-81 10:37:000.1[facility] 2020-08-29 10:37:001+ *ABN*(08/29/20 5:37 AM)[facility] ZrxthryLQVTWNRLSR9963-57-98 10:37:00Not Detected (08/29/20 5:37 AM)[facility]annBL[facility]OD BANK RESULTS 2020-08-29 10:37:00Negative (08/29/20 5:37 AM)[facility]ann[facility] GXXHQ5404-57-42 10:37:88729Yhlwgyur HermannCHEM SOLJJ0961-80-04 10:37:0028[facility]annCHEM XDLWE3240-19-58 10:37:001.01[facility]annCHE[facility] IDPYF3358-56-25 10:37:39606 [facility]ann[facility] RJYQC9475-62-46 10:37:003.8[facility]annCHEM PANEL 2020-08-29 10:37:30778Dxjsbtbg HermannCHEM RWCMO0313-20-69 10:37:0028[facility]annCHEM JKVQH0941-60-86 10:37:009.8[facility]annCHEM KIHGR2196-09-25 10:37:0011.8[facility]annCHEM VQJBH7942-14-99 10:37:0059[facility]annCHEM HDSKN4655-59-02 10:37:002.9[facility] YdzddgoSQXVSRNIQR4629-87-44 10:37:006.8 Memorial IqodprzLMCAQUQHGK9678-65-03 10:37:004.47[facility]annHE[facility]OLOGY 2020-08-29 10:37:0010.6[facility] JyelfglPFGPIEQWTT7536-58-89 10:37:0034.0[facility] FsjmxutMKGWILVUBA4245-36-80 10:37:0076.1[facility] BagxnfcSNWKSZJXYP5213-63-07 10:37:00 Test Item Value Reference Range Interpretation Comments MCH (test code = MCH) 23.8 pg 27.0-31.0 Memorial CpmyjeiOCIYRTWJGZ8592-98-22 10:37:0031.3[facility] 2020-08-29 10:37:0018.2[facility] TzmfqkiGIBGWKWTPB2046-61-21 10:37:60589Buuimwvo ZdyygrbIWRFXMUKKQ3328-90-09 10:37:007.5[facility] XogakvaJDCMWIVMUK9189-78-62 10:37:00 Test Item Value Reference Range Interpretation Comments PT (test code = PT) 12.8 s 12.0-14.7 Memorial QvkkdikOCMQIMDXAR4687-36-27 10:37:00 Test Item Value Reference Range Interpretation Comments INR (test code = INR) 0.97 1 0.85-1.17 Memorial RulnuouNUNERIHYYX6024-04-09 10:37:00 Test Item Value Reference Range Interpretation Comments PTT (test code = PTT) 25.0 s 22.9-35.8 Memorial GmwfcafJXKMEMHCBM7953-41-76 10:37:0070.5[facility]annHEMATOLOGY 2020-08-29 10:37:0018.8[facility] EjoyngbHWFVETTAJJ1297-08-07 10:37:009.5[facility] BetbripFPKBUPSYJU7720-51-97 10:37:000.9[facility] CkdtxqbBDRGRFSRRJ5828-82-80 10:37:000.3[facility] YpbuzxmXTUKVIAJKZ5721-37-47 10:37:004.8[facility] XHHSHZBJXO4429-18-65 10:37:001.3[facility] DfbtqqvSHFHGRCEIS2773-58-24 10:37:000.6 [facility] HhrjviwCVOKOAJCQU6706-85-66 10:37:000.1[facility]annHEMATOLOGY 2020-08-29 10:37:001+ *ABN*(08/29/20 5:37 AM)[facility] UjhcudyXDEWICBVMW1782-47-02 10:37:00Not Detected (08/29/20 5:37 AM)[facility] RESULTS 2020-08-29 10:37:00Negative (08/29/20 5:37 AM)[facility]annCHEM OQOFP9771-92-01 10:37:75019Cllqwqxt HermannCHEM DSIKL4309-21-57 10:37:0028[facility]annCHEM NXONC5397-04-31 10:37:001.01[facility]annCHEM EXZWS8883-58-33 10:37:04737 [facility]annCHE[facility] LADXP0040-04-02 10:37:003.8[facility]annCHEM PANEL 2020-08-29 10:37:43411Jbnxliaf HermannCHEM UEYLI1502-10-96 10:37:0028[facility]annCHEM YOAFV9621-51-36 10:37:009.8[facility]annCHEM ZDCGL9719-42-68 10:37:0011.8[facility]annCHEM XYBKW6287-14-33 10:37:0059[facility]annCHEM SZQEK7948-73-18 10:37:002.9[facility] SnbzvjdZWKVGEBQGJ4050-84-73 10:37:006.8 [facility] GxyhqhjSWELRFQDMF4248-19-60 10:37:004.47[facility]annHEMATOLOGY 2020-08-29 10:37:0010.6[facility] OhdwhbgLBRMIQXDPA5941-25-10 10:37:0034.0[facility] MhlpzwuWSLCBZENBU9413-25-68 10:37:0076.1[facility] UscskuuJRCEBHVKYN6420-41-20 10:37:00 Test Item Value Reference Range Interpretation Comments MCH (test code = MCH) 23.8 pg 27.0-31.0 [facility] BegcexbHLQQOHCPMI4723-40-46 10:37:0031.3[facility]annHEMATOLOGY 2020-08-29 10:37:0018.2[facility] RzxesnwRJDECPYIZQ8714-68-90 10:37:00649Lsifkxev GprsdddGGIWCNMPMC6190-28-57 10:37:007.5[facility] CyzesbhQHPDQSJZGE9906-37-05 10:37:00 Test Item Value Reference Range Interpretation Comments PT (test code = PT) 12.8 s 12.0-14.7 [facility] KrtsjfoPWHCVAKNVK5128-84-35 10:37:00 Test Item Value Reference Range Interpretation Comments INR (test code = INR) 0.97 1 0.85-1.17 [facility] NdfqkfyQOEWZLXEAW1786-60-51 10:37:00 Test Item Value Reference Range Interpretation Comments PTT (test code = PTT) 25.0 s 22.9-35.8 [facility] QmdmenzUZPGMKJEAG5322-05-84 10:37:0070.5[facility]annHEMATOLOGY 2020-08-29 10:37:0018.8[facility] DigeqrkMWMTEZYOXM9103-50-29 10:37:009.5[facility] KnddzgbNGQRWOWVXZ1620-64-98 10:37:000.9[facility] GphbdliWUOJFNCIWH2969-70-27 10:37:000.3[facility] EvuefpmDQSUMOUNHK2533-88-27 10:37:004.8[facility] [place] QWFZRTSWKQ2687-10-68 10:37:001.3[facility] BcgpxgcYXSNHBAVWU6980-37-90 10:37:000.6 [facility] ZvifwprUXHQYEKVIZ0415-20-36 10:37:000.1[facility]annHEMATOLOGY 2020-08-29 10:37:001+ *ABN*(08/29/20 5:37 AM)[facility] FxecuklHCTHLMDTOM5232-22-04 10:37:00Not Detected (08/29/20 5:37 AM)[facility]annBLOOD BANK RESULTS 2020-08-29 10:37:00Negative (08/29/20 5:37 AM)[facility]annCHEM LTCBC4639-18-46 10:37:37141Njtmzanb HermannCHEM QGFHJ7333-03-72 10:37:0028[facility]annCHEM YOAKT7973-59-47 10:37:001.01[facility]annCHEM MDKGR1508-61-40 10:37:06465 [facility]annCHEM QVCXG4884-35-51 10:37:003.8[facility]annCHEM PANEL 2020-08-29 10:37:61302Uwndyzxy HermannCHEM SOTEN6132-06-54 10:37:0028[facility]annCHEM XJDZQ3962-69-32 10:37:009.8[facility]annCHEM XPTGK6512-33-98 10:37:0011.8[facility]annCHEM EJDLN1204-15-91 10:37:0059[facility]annCHEM NSJXP7871-70-90 10:37:002.9[facility] HocdlkwHYANKPRFKF8887-27-82 10:37:006.8 [facility] AdsblttTUUMVBIDSE0836-44-66 10:37:004.47[facility] HermannHEMATOLOGY 2020-08-29 10:37:0010.6[facility] HrbvrkaITJLPHNMOS3046-87-92 10:37:0034.0[facility] DpxttdgQOCISAEDZV6681-93-86 10:37:0076.1[facility] BapjpvkGSMLYXHIZR9834-28-42 10:37:00 Test Item Value Reference Range Interpretation Comments MCH (test code = MCH) 23.8 pg 27.0-31.0 [facility] UjvuyssFRYGEJVNVM2966-79-74 10:37:0031.3[facility]annHEMATOLOGY 2020-08-29 10:37:0018.2[facility] BxyaxhcQQOYYUBKBJ3798-22-07 10:37:67927Kbbcmpoj ElkrqluPQIVAOSEXE3406-29-17 10:37:007.5[facility] LyyjunlFYJKXDQMES8293-85-95 10:37:00 Test Item Value Reference Range Interpretation Comments PT (test code = PT) 12.8 s 12.0-14.7 [facility] ZraqowxIGNYDSOJRY4829-41-75 10:37:00 Test Item Value Reference Range Interpretation Comments INR (test code = INR) 0.97 1 0.85-1.17 [facility] FrvygqqOCEJBTVLJK1525-58-79 10:37:00 Test Item Value Reference Range Interpretation Comments PTT (test code = PTT) 25.0 s 22.9-35.8 [facility] BtkucevCMKVQSEOTX9637-92-55 10:37:0070.5[facility]annHEMATOLOGY 2020-08-29 10:37:0018.8[facility] FwprbkhCRQOXWWOWO3902-48-29 10:37:009.5[facility] WbfffmsJGULBCKXNA5633-93-79 10:37:000.9[facility] GqkoxuiVNUFIFRVWI4055-28-72 10:37:000.3[facility] LdwxajgLJNQYSVKLG3679-13-53 10:37:004.8[facility] [place] ECROAWRKQP8175-26-16 10:37:001.3[facility] HmdkfgfWKFAVCQGMA6721-85-71 10:37:000.6 [facility] BdtvpjhWCLSOQSDKE5995-86-07 10:37:000.1[facility]annHEMATOLOGY 2020-08-29 10:37:001+ *ABN*(08/29/20 5:37 AM)[facility] VstgexzQDLXSLHOCK4196-29-10 10:37:00Not Detected (08/29/20 5:37 AM)[facility]annBLOOD BANK RESULTS 2020-08-29 10:37:00Negative (08/29/20 5:37 AM)[facility]annCHEM PWBRR1036-23-46 10:37:56722Tdkmgjzh HermannCHEM GQBEQ0804-15-96 10:37:0028[facility]annCHEM FLKGE7077-98-41 10:37:001.01[facility]annCHEM LYJUQ1288-85-50 10:37:31932 [facility]annCHE[facility] RDXPV5271-24-77 10:37:003.8[facility]annCHEM PANEL 2020-08-29 10:37:52057Ecawqxij HermannCHEM PSXSB1667-04-53 10:37:0028[facility]annCHEM ZQTGR5259-19-61 10:37:009.8[facility]annCHEM FTZMH6823-23-90 10:37:0011.8[facility]annCHEM CMWYT5617-52-92 10:37:0059[facility]annCHEM PKLGN7261-50-95 10:37:002.9[facility] MdbssjgATQFOWQIMC2490-26-20 10:37:006.8 [facility] OrliuvlBLVAVBSCJA4742-92-91 10:37:004.47[facility]annHEMATOLOGY 2020-08-29 10:37:0010.6[facility] OqefaflMMRUOEWFYP4939-30-59 10:37:0034.0[facility] TxqjcyjNKTJKGIPUU4979-66-15 10:37:0076.1[facility] LhruragYBQWVCMPFM7828-02-75 10:37:00 Test Item Value Reference Range Interpretation Comments MCH (test code = MCH) 23.8 pg 27.0-31.0 [facility] BezkhkkLIGAFEGDWG0809-66-06 10:37:0031.3[facility]annHEMATOLOGY 2020-08-29 10:37:0018.2[facility] AcldxfpVSLBUZTFVL1775-17-84 10:37:79181Wlztzihv NklcbrbAEMTBEHRGQ4202-82-13 10:37:007.5[facility] QzcqhmvGCOXQLNWDQ5432-04-94 10:37:00 Test Item Value Reference Range Interpretation Comments PT (test code = PT) 12.8 s 12.0-14.7 [facility] NsnvqzgZJFKBRDNAA5431-16-87 10:37:00 Test Item Value Reference Range Interpretation Comments INR (test code = INR) 0.97 1 0.85-1.17 [facility] WovpujiGXRKTVQDYS2588-53-33 10:37:00 Test Item Value Reference Range Interpretation Comments PTT (test code = PTT) 25.0 s 22.9-35.8 [facility] LvhnopsYUUEXVNZWN8539-41-88 10:37:0070.5[facility]annHEMATOLOGY 2020-08-29 10:37:0018.8[facility] VenqverPCYECLLBGW2691-69-45 10:37:009.5[facility] JjudgtnUOXFPMPLDE4096-09-71 10:37:000.9[facility] RixliikWCVBPEOXWH8127-31-97 10:37:000.3[facility] OdwfkkgBLBSAVFCJU2224-21-18 10:37:004.8[facility] [place] CCMKYLAZDR9446-40-03 10:37:001.3[facility] GynhzsgPXGILUYXHH8177-26-53 10:37:000.6 [facility] CkagqneBMLKKRORIG9886-70-19 10:37:000.1[facility]annHEMATOLOGY 2020-08-29 10:37:001+ *ABN*(08/29/20 5:37 AM)[facility] AdgqqsgVOBYAONHFJ9268-65-06 10:37:00Not Detected (08/29/20 5:37 AM)[facility]annBL[facility]OD BANK RESULTS 2020-08-29 10:37:00Negative (08/29/20 5:37 AM)[facility]annCHEM SQFYA2571-05-70 10:37:81995Ovhdkfku HermannCHEM EDAHF9036-98-10 10:37:0028[facility]annCHEM FXGGL2220-54-49 10:37:001.01[facility]annCHEM EQWWI6390-55-06 10:37:35291 [facility]annCHE[facility] RUYRJ9669-28-00 10:37:003.8[facility] HermannCHEM PANEL 2020-08-29 10:37:09411Qvhrsmyu HermannCHEM OIJZN9911-26-67 10:37:0028[facility]annCHEM RSQCY6819-79-18 10:37:009.8[facility]annCHEM OMUFR7136-87-41 10:37:0011.8[facility]annCHEM DARZX4982-63-89 10:37:0059[facility]annCHEM BHYYJ8129-43-66 10:37:002.9[facility] ObshhwkYZHBQROOTY8603-14-83 10:37:006.8 [facility] AfwnkabJFMXDHNQYL7879-55-61 10:37:004.47[facility]annHEMATOLOGY 2020-08-29 10:37:0010.6[facility] BcrbozfFQGUKYONPZ5115-27-45 10:37:0034.0[facility] MjmkigvWSLRTVCYJH9925-95-34 10:37:0076.1[facility] PuwosfiIIYBFDQLMZ1090-20-53 10:37:00 Test Item Value Reference Range Interpretation Comments MCH (test code = MCH) 23.8 pg 27.0-31.0 [facility] KwskdotMPABZJNXQE6438-64-71 10:37:0031.3[facility]annHEMATOLOGY 2020-08-29 10:37:0018.2[facility] HwdfenmTKAIQZOHPN4337-80-37 10:37:46559Bhyioqae AkjffgkZLVSZEHWFF8611-66-17 10:37:007.5[facility] LmmmpoiHCESQWFEIU1212-07-76 10:37:00 Test Item Value Reference Range Interpretation Comments PT (test code = PT) 12.8 s 12.0-14.7 [facility] UrkaullKUGRICVQHL8487-51-34 10:37:00 Test Item Value Reference Range Interpretation Comments INR (test code = INR) 0.97 1 0.85-1.17 [facility] DujkkxeXWNPELAIFC3053-19-14 10:37:00 Test Item Value Reference Range Interpretation Comments PTT (test code = PTT) 25.0 s 22.9-35.8 [facility] GlbnkhaHCEPVPLALK4599-99-06 10:37:0070.5[facility] HermannHEMATOLOGY 2020-08-29 10:37:0018.8[facility] BejeihuYKMNKLHJJK5084-85-73 10:37:009.5[facility] QtusuhuAWQZFGPREJ0960-74-19 10:37:000.9[facility] MwvjpljFTNLIOWFSK8206-01-92 10:37:000.3[facility] QrwbrzeJMTKLGZCWJ6035-76-92 10:37:004.8[facility] FZLFJNMLII0473-08-84 10:37:001.3[facility] MdsxvpgIFJPSZWDTZ3010-83-27 10:37:000.6 [facility] ImvkobiCOUZQCCAPK7615-47-45 10:37:000.1[facility] HermannHEMATOLOGY 2020-08-29 10:37:001+ *ABN*(08/29/20 5:37 AM)[facility] CsbuexoBKQNMGDSKN1166-47-98 10:37:00Not Detected (08/29/20 5:37 AM)[facility] HermannCHLAMYDIA, GC, TV,PCR, IN QAQJW3446-20-04 15:38:00 Test Item Value Reference Range Interpretation Comments FT (test code = CHTR) Not detected (qualifier Not Detected N value) FT (test code = Not detected (qualifier Not Detected N NGONO) value) FT (test code = TRVG) Not detected (qualifier Not Detected N value) URINALYSIS WITH OCQDMMMSJEK9721-59-39 10:57:00 Test Item Value Reference Range Interpretation Comments Color (test code = UCOLR) Dk. Yellow Clarity (test code = UCLAR) Hazy Glucose (test code = UGLUC) NEGATIVE NEGATIVE N Bilirubin (test code = UBILI) NEGATIVE NEGATIVE N Ketones (test code = UKET) NEGATIVE NEGATIVE N Specific [place] (test code = 1.025 1.005-1.030 A USPGR) [...]
--- NOTE | 2022-01-12 15:31 | RAD REPORT ---
EXAM DESCRIPTION: CT - Head Brain Wo Cont - 01/12/2022 3:26 pm CLINICAL HISTORY: fall Fall, trauma, head injury COMPARISON: Facial Bones W/ Mpr dated 01/04/2022; Head Brain Wo Cont dated 12/03/2021 TECHNIQUE: All CT scans are performed using dose optimization technique as appropriate and may inclu de automated exposure control or mA/KV adjustment according to patient size. FINDINGS: No intracranial hemorrhage, hydrocephalus or extra-axial fluid collection.Mild generalized brain atrophy is present with moderate periventricular and deep white matter chronic microvascular i schemic changes.No areas of brain edema or evidence of midline shift. The paranasal sinuses and mastoids are clear. The calvarium is intact. IMPRESSION: No acute intracranial abnormality.
--- NOTE | 2022-01-12 15:49 | RAD REPORT ---
EXAM DESCRIPTION: RAD - Wrist Left 3 View - 01/12/2022 3:40 pm CLINICAL HISTORY: PAIN Pain COMPARISON: Wrist Left 3 View dated 01/04/2022; Wrist Left 3 View dated 08/28/2021 FINDINGS: Advanced radiocarpal arthritic changes are present. Scapholunate widening is present likel y related to tear of scapholunate ligament. Ununited ulnar styloid avulsion seen. Evidence of prior distal radius fracture is seen with remodeling. No acute fracture evident. IMPRESSION: No acute fracture evident.
--- NOTE | 2022-01-12 16:10 | EDPHYS ---
Physician Documentation [facility] Name: Fawn Fleming Age: 66 yrs Sex: Female : 1955 Arrival Date: 01/12/2022 Time: 14:56 Bed Waiting Private MD: Lele Rahman H ED Physician Joey Jung HPI: 01/12 16:17 This 66 yrs old Female presents to ER via Ambulatory with complaints of Wrist Injury - snw left. 16:17 The patient or guardian reports decreased range of motion, pain. The complaints affect snw the left wrist diffusely. Context: The problem was sustained at home, resulted from a fall, on an outstretched hand. Onset: The symptoms/episode began/occurred acutely, last night. Associated signs and symptoms: The patient has no apparent associated signs or symptoms. The patient has experienced similar episodes in the past. It is unknown whether or not the patient has recently seen a physician. Historical: - Allergies: 15:09 Bactrim DS; jh5 15:09 butorphanol tartrate; jh5 15:09 Fentanyl; jh5 15:09 Reglan; jh5 15:09 Stadol; jh5 15:09 sulfamethoxazole (bulk); jh5 15:09 TRIMETHOPRIM; jh5 - PMHx: 15:09 Atrial Fib; Anxiety; Bipolar disorder; Chronic pain; COPD; esophageal varices; jh5 Hepatitis; HIV; Hypertension; Migraines; Panic Attacks; - PSHx: 15:09 Appendectomy; Bilateral shoulder repair; hernia repair; Cholecystectomy; R wrist SX; jh5 - Immunization history:: Adult Immunizations up to date. - Social history:: Smoking status: Patient denies any tobacco usage or history of. ROS: 16:13 Constitutional: Negative for fever, chills, and weight loss, Eyes: Negative for injury, snw pain, redness, and discharge, ENT: Negative for injury, pain, and discharge, Neck: Negative for injury, pain, and swelling, Cardiovascular: Negative for chest pain, palpitations, and edema, Respiratory: Negative for shortness of breath, cough, wheezing, and pleuritic chest pain, Abdomen/GI: Negative for abdominal pain, nausea, vomiting, diarrhea, and constipation, Back: Negative for injury and pain, : Negative for injury, bleeding, discharge, and swelling, Skin: Negative for injury, rash, and discoloration. 16:13 Psych: Negative for depression, anxiety, suicide ideation, homicidal ideation, and hallucinations. 16:13 MS/extremity: Positive for pain, of the dorsal aspect of left wrist. 16:13 Neuro: Positive for reports fall last pm. Reports striking occiput and left wrist tenderness. Exam: 16:11 Skin: injury, abrasion(s), very small abrasion noted, right forearm, contusion(s), of snw the right hand, lateral aspect of left wrist, medial aspect of left wrist, dorsal aspect of left wrist and palmar aspect of left wrist. 16:11 Constitutional: This is a well developed, well nourished patient who is awake, alert, and in no acute distress. Head/Face: Normocephalic, atraumatic. Eyes: Pupils equal round and reactive to light, extra-ocular motions intact. Lids and lashes normal. Conjunctiva and sclera are non-icteric and not injected. Cornea within normal limits. Periorbital areas with no swelling, redness, or edema. ENT: Nares patent. No nasal discharge, no septal abnormalities noted. Tympanic membranes are normal and external auditory canals are clear. Oropharynx with no redness, swelling, or masses, exudates, or evidence of obstruction, uvula midline. Mucous membranes moist. Neck: Trachea midline, no thyromegaly or masses palpated, and no cervical lymphadenopathy. Supple, full range of motion without nuchal rigidity, or vertebral point tenderness. No Meningismus. Chest/axilla: Normal chest wall appearance and motion. Nontender with no deformity. No lesions are appreciated. Cardiovascular: Regular rate and rhythm with a normal S1 and S2. No gallops, murmurs, or rubs. Normal PMI, no JVD. No pulse deficits. Respiratory: Lungs have equal breath sounds bilaterally, clear to auscultation and percussion. No rales, rhonchi or wheezes noted. No increased work of breathing, no retractions or nasal flaring. Abdomen/GI: Soft, non-tender, with normal bowel sounds. No distension or tympany. No guarding or rebound. No evidence of tenderness throughout. Back: No spinal tenderness. No costovertebral tenderness. Full range of motion. Neuro: Awake and alert, GCS 15, oriented to person, place, time, and situation. Cranial nerves II-XII grossly intact. Motor strength 5/5 in all extremities. Sensory grossly intact. Cerebellar exam normal. Psych: Awake, alert, with orientation to person, place and time. Behavior, mood, and affect are within normal limits. 16:11 Skin: Appearance: normal except for affected area, ecchymosis, noted on the, right hand, lateral aspect of left wrist, medial aspect of left wrist, dorsal aspect of left wrist and palmar aspect of left wrist, that are moderate, injury, abrasion(s), very small abrasion noted, of the dorsal aspect of right wrist. Vital Signs: 15:06 BP 166 / 86; Pulse 57; Resp 16; Temp 98.3; Pulse Ox 100% ; Weight 83.91 kg; Height 5 5 ft. 4 in. (162.56 cm); Pain 10; 15:06 Body Mass Index 31.75 (83.91 kg, 162.56 cm) [facility] MDM: 16:10 Patient medically screened. snw 16:17 Data reviewed: vital signs, nurses notes. Data interpreted: Pulse oximetry: on room air snw is 100 %. Interpretation: normal. Counseling: I had a detailed discussion with the patient and/or guardian regarding: the historical points, exam findings, and any diagnostic results supporting the discharge/admit diagnosis, the presence of at least one elevated blood pressure reading (>120/80) during this emergency department visit, radiology results, the need for outpatient follow up, to return to the emergency department if symptoms worsen or persist or if there are any questions or concerns that arise at home. Special discussion: I have referred the patient to see his PCP for further evaluation of high blood pressure. I discussed with the patient their frequent requests for pain medications. Instructions have been given, that in the best interests of the patient, further pain Rx's must come from the patient's PCP or a paint mixer hand. Based on the history and exam findings, there is no indication for further emergent testing or inpatient evaluation. I discussed with the patient/guardian the need to see the primary care provider for further evaluation of the symptoms. 01/12 15:14 Order name: CT Head Brain wo Cont; Complete Time: 16:06 [facility] 01/12 15:14 Order name: Wrist Left (3 View) XRAY; Complete Time: 16:06 jh5 01/12 16:11 Order name: Wrist Splint snw Administered Medications: No medications were administered Disposition: 01/13 10:27 Co-signature as Attending Physician, Joey Jung MD I agree with the assessment and kdr plan of care. Disposition Summary: 01/12/22 16:10 Discharge Ordered Location: Home snw Condition: Stable snw Diagnosis - Fall on same level, unspecified snw - Unspecified injury of head, initial encounter snw - Contusion of left wrist snw - Contusion of right wrist snw Followup: snw - With: Emergency Department - When: As needed - Reason: Worsening of condition Followup: snw - With: Lele Rahman DO - When: 2 - 3 days - Reason: Recheck today's complaints, Continuance of care, Re-evaluation by your physician Discharge Instructions: - Discharge Summary Sheet snw - Abrasion snw - Contusion snw - Head Injury, Adult snw - RICE Therapy for Routine Care of Injuries snw - Wrist Pain, Adult snw - Wrist Splint, Adult snw Forms: - Medication Reconciliation Form snw - Thank You Letter snw - Antibiotic Education snw - Prescription Opioid Use snw Signatures: Dispatcher [employer] EDMS Joey Jung MD MD kdr Waters, Shelly, WOOD MACHINIST APPRENTICE-C WOOD MACHINIST APPRENTICE-Csnw Sharee Castrejon, RN RN jh5
--- NOTE | 2022-01-12 16:10 | ER ---
Nurse's Notes [facility] Name: Fawn Fleming Age: 66 yrs Sex: Female : 1955 Arrival Date: 01/12/2022 Time: 14:56 Bed Waiting Private MD: Lele Rahman H Diagnosis: Fall on same level, unspecified;Unspecified injury of head, initial encounter;Contusion of left wrist;Contusion of right wrist Presentation: 01/12 15:06 Chief complaint: Patient states: fell last night on kitchen floor; on her left wrist. jh5 pain to left wrist. Pt also endorses hitting left posterior of her head on the floor also. Coronavirus screen: Vaccine status: Patient reports receiving the 1st dose of the Covid vaccine. Client denies travel out of the [place] in the last 14 days. Ebola Screen: Patient negative for fever greater than or equal to 101.5 degrees Fahrenheit, and additional compatible Ebola Virus Disease symptoms Patient denies exposure to infectious person. Patient denies travel to an Ebola-affected area in the 21 days before illness onset. Initial Sepsis Screen: Does the patient meet any 2 criteria? No. Patient's initial sepsis screen is negative. Does the patient have a suspected source of infection? No. Patient's initial sepsis screen is negative. Risk Assessment: Do you want to hurt yourself or someone else? Patient reports no desire to harm self or others. Onset of symptoms was January 11, 2022. 15:06 Method Of Arrival: Ambulatory [facility] 15:06 Acuity: BLAYNE 4 jh5 Triage Assessment: 15:09 General: Appears in no apparent distress. obese, unkempt. General: Behavior is calm, jh5 cooperative, appropriate for age. Pain: Complains of pain in left wrist. Musculoskeletal: No deficits noted. Injury Description: fall. Historical: - Allergies: 15:09 Bactrim DS; 5 15:09 butorphanol tartrate; 5 15:09 Fentanyl; 5 15:09 Reglan; 5 15:09 Stadol; 5 15:09 sulfamethoxazole (bulk); [facility] 15:09 TRIMETHOPRIM; [facility] - PMHx: 15:09 Atrial Fib; Anxiety; Bipolar disorder; Chronic pain; COPD; esophageal varices; jh5 Hepatitis; HIV; Hypertension; Migraines; Panic Attacks; - PSHx: 15:09 Appendectomy; Bilateral shoulder repair; hernia repair; Cholecystectomy; R wrist SX; jh5 - Immunization history:: Adult Immunizations up to date. - Social history:: Smoking status: Patient denies any tobacco usage or history of. Screenin:10 Abuse screen: Denies threats or abuse. Denies injuries from another. Nutritional [facility] screening: No deficits noted. Tuberculosis screening: No symptoms or risk factors identified. Fall Risk Fall in past 12 months (25 points). Vital Signs: 15:06 BP 166 / 86; Pulse 57; Resp 16; Temp 98.3; Pulse Ox 100% ; Weight 83.91 kg; Height 5 [facility] ft. 4 in. (162.56 cm); Pain 10/10; 15:06 Body Mass Index 31.75 (83.91 kg, 162.56 cm) [facility] ED Course: 14:56 Patient arrived in ED. am2 14:57 Lele Rahman DO is Private Physician. am2 15:09 Triage completed. jh5 15:09 Arm band placed on right wrist. jh5 15:10 Patient has correct armband on for positive identification. jh5 15:27 CT Head Brain wo Cont In Process Unspecified. EDMS 15:42 Wrist Left (3 View) XRAY In Process Unspecified. EDMS 16:09 Lele Rahman DO is Referral Physician. snw 16:19 Joey Jung MD is Attending Physician. kdr 16:20 Cristina Mueller FNP-C is [facility] Administered Medications: No medications were administered Outcome: 16:10 Discharge ordered by . snw 16:24 Patient left the ED. [facility] Signatures: Dispatcher [employer] EDMS Joey Jung MD MD [facility] Cristina Mueller FNP-C FNP-Gopiw Danielle Ferrer am2 Sharee Castrejon RN RN [facility]
[2022-01-12 16:31] VITALS: BP 166/86; TEMP 98.3; O2SAT 100
== END 2022-01-12 16:24 | disposition home or self-care (01) ==
LOC: ER 14:55
DX: S60.212A Contusion of left wrist, initial encounter (principal); S60.211A Contusion of right wrist, initial encounter; S09.90XA Unspecified injury of head, initial encounter; W18.30XA Fall on same level, unspecified, initial encounter; I10 Essential (primary) hypertension; Z21 Asymptomatic human immunodeficiency virus [HIV] infection status; Z88.1 Allergy status to other antibiotic agents; Z88.2 Allergy status to sulfonamides; Z88.5 Allergy status to narcotic agent; Z88.8 Allergy status to other drugs, medicaments and biological substances
CPT/HCPCS: 70450

== ENCOUNTER 2022-01-15 02:39 | Emergency (ER) | payer OTHER ==
--- OUTSIDE RECORDS SUMMARY | 2022-01-15 02:49 | XMS REPORT | Continuity of Care Document ---
:1955 Author Organization [facility] t Address [address] [place] [address] Care Team Providers Name Role Phone Urmila Rahman Primary Care Physician Mike Lund Attending Clinician Unavailable ELAN LIRA Attending Clinician Unavailable SANTIAGO CARDENAS Attending Clinician Unavailable Doctor Unassigned, [place] Attending Clinician Unavailable Bill GUO Attending Clinician Unavailable Bill Rose Attending Clinician [facility] Attending Clinician Unavailable Santiago Sanchez Attending Clinician Beverly Layton MD Attending Clinician Eliseo Arce MD Attending Clinician Carol Ann HOSPITAL LIAISON, Sarai Lieberman Attending Clinician [phone] Prabhu SANCHEZ, Ashly Attending Clinician Unavailable [...] Date Expiration Date S gabino [facility]ITY [id number] 2012 STARPLUS OON 00:00:00 EXCEPT [facility] DUAL [id number] 2020 COMP HMO D SNP 00:00:00 MEDICAID OF [place] [id number] 2020 00:00:00 Problems Condition Condition Condition Status Onset Resolution Last Treating Co mments Source Name Details Category Date Date Treatment Clinician Date Gastropare Gastropare Disease Active Overview : Methodi sis sis 4-[address] 00:00: [facility] of this [facility] 00 note l might be different from the original. Added automatic ally from request for surgery [id number] Dysphagia Dysphagia Disease Active Overview: Methodi 4-[address] 00:00: g of this Hosp[facility] 00 note l might be different from the original. 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 2020-10-15 Memoria PVI PVI 3-30 17:07:00 l ABLATION ABLATION 00:00: Patel n W/ CARTO / W/ CARTO / 00 GA / T GA / T Active 08/19/2020 [place] [...] (BMI 2-19 ity of 30-39.9) 30-39.9) 00:00: [place] [facility] Anemia Anemia Disease Active 2014-05 [...] hepatitis 11-18 ity of C C 00:00: [place] [facility] Hypertensi Hypertensi Disease Active U nivers on on 11-18 ity of 00:00: [place] 00 Medical Branch Allergies, Adverse Reactions, Alerts Allergy Allergy Status Severity Reaction(s) Onset Inactive Treating Comm ents Source Name Type Date Date Clinician sulfamet DA Active SV N/V [facility] hoxazole 1- Clear 00:00: Garcia 00 [facility] trimetho DA Active SV [facility] prim 1- Clear 00:00: Garcia [facility] codeine DA Active SV N/V [facility] - Clear 00:00: Garcia [facility] Metoclop Propensi Active [place] ramide ty [...] SULFAMET DRUG Active High Unknown-Cmnt 2015-05 Un amtt HOXAZOLE INGREDI 06-24 ity of 00:00: [place] [...] Date Stop Date Source [facility] Method [facility] Social History Social Habit Start Date Stop Date Quantity Comments Source History of tobacco Smoker Method ist use Hospital History SDOH [facility] Alcohol Frequency Hospita l History SDOH [facility] Alcohol Std Drinks Hospit al History SDIA [facility] Alcohol Binge Hospital Exposure to 2021-12-02 2021-12-12 Not sure University of SARS-CoV-2 (event) 00:00:00 23:54:00 [facility] Alcohol intake 2020-12-08 2020-12-08 Current drinker [facility] 00:00:00 00:00:00 of alcohol Hospital (finding) Cigarettes smoked 2020-09-05 2020-09-[address] current (pack per 00:00:00 00:00:00 Hospita l day) - Reported Cigarette 2020-09-05 2020-09-05 [facility] pack-years 00:00:00 00:00:00 Hospital Tobacco use and 2020-08-06 2020-08-06 Former smokeless Uni versity of exposure 00:00:00 00:00:00 tobacco user [facility] Alcohol Comment 2016-09-23 2016-09-23 rare [facility] 00:00:00 00:00:00 Hospital Tobacco Comment 2015-02-14 2015-02-14 Smokes approx 1-2 Un iversity of 00:00:00 00:00:00 cigarettes per [facility] day when she Branch smokes Sex Ass[birth year] At [birth year] [facility] 00:00:00 00:00:00 Smoking Status Start Date Stop Date Source Ex-smoker 2020-08-06 00:00:00 2020-08-06 00:00:00 [facility] Medications Ordered Filled Start Stop Current Ordering Indication Dosage Frequency Signature Comments Components Source Medication Medication Date Date Medication? Clinician (SIG) Name Name methocarbam 2021- No 500mg 500 mg, U nivers oL 12-13 Oral, ity of (ROBAXIN) 07:45: 06:35 [place]CE[place] 500 [place] :[place] dose, On Medic al mg [facility] 12/13/21 at 0245, Routine ketorolac 2021- No 30mg 30 mg, Unive rs (TORADOL) 12-13 Intramuscu ity of injection 07:45: 06:34 lar, ONCE, [place] 30 mg 00 :00 1 dose, On [facility] [place] [facility] 12/13/21 at 0245, JOE naproxen 2022-0 Yes [id number] 500mg Take 1 U nivers (NAPROSYN) 7-24 tablet by ity of 500 mg 00:00: mouth in [place] tablet 00 the Medical morning Branch and 1 tablet in the evening. Take with meals. methocarbam 2022-0 Yes [id number] 500mg Take 1 Univers oL 500 mg 7-24 tablet by ity o f tablet 00:00: mouth 4 [place] [address] [address] [facility]) Medical times [place] daily. naproxen 2022-0 Yes [id number] 500mg Take 1 U nivers (NAPROSYN) 7-24 tablet by ity of 500 mg 00:00: mouth in [place] tablet 00 the Medical morning Branch and 1 tablet in the evening. Take with meals. methocarbam 2022-0 Yes [id number] 500mg Take 1 Univers oL 500 mg 7-24 tablet by ity o f tablet 00:00: mouth 4 [place] [address] [address] [facility]) Medical times Branch daily. naproxen 2022-0 Yes [id number] 500mg Take 1 U nivers (NAPROSYN) 7-24 tablet by ity of 500 mg 00:00: mouth in [place] tablet 00 the Medical morning Branch and 1 tablet in the evening. Take with meals. methocarbam 2022-0 Yes [id number] 500mg Take 1 Univers oL 500 mg 7-24 tablet by ity o f tablet 00:00: mouth 4 [place] [address] [address] [facility]) Medical times [place] daily. hydralAZINE 2022-0 Yes 25mg Take 25 mg Univers (APRESOLINE 7-01 by mouth ity of ) 25 mg 08:47: daily. [place] [address] Medical Branch hydralAZINE 2022-0 Yes 25mg Take 25 mg Univers (APRESOLINE 7-01 by mouth ity of ) 25 mg 08:47: daily. [place] tablet Medical Branch hydralAZINE 2022-0 Yes 25mg Take 25 mg Univers (APRESOLINE 7-01 by mouth ity of ) 25 mg 08:47: daily. [address] Branch hydralAZINE 2022-0 Yes 25mg Take 25 mg Univers (APRESOLINE 7-01 by mouth ity of ) 25 mg 08:47: daily. [place] tablet 47 Medical Branch buPROPion 2021-0 Yes [id number] 150mg Take 1 U nivers XL 4-12 tablet by ity of (WELLBUTRIN 00:00: mouth [place] XL) 150 mg 00 daily. Medical 24 hr Branch tablet busPIRone 2021-0 Yes [id number] 30mg Take 1 Un matt 30 mg 4-12 tablet by ity of tablet 00:00: mouth 2 [place] 00 (two) Medical times Branch daily. SERTraline 2021-0 Yes [id number] 200mg Take 2 Univers 100 mg 4-12 tablets by ity of tablet 00:00: mouth [place] 00 daily. Medical Branch buPROPion 2021-0 Yes [id number] 150mg Take 1 U nivers XL 4-12 tablet by ity of (WELLBUTRIN 00:00: mouth [place] XL) 150 mg 00 daily. Medical 24 hr Branch tablet busPIRone 2021-0 Yes [id number] 30mg Take 1 Un matt 30 mg 4-12 tablet by ity of tablet 00:00: mouth 2 [place] 00 (two) Medical times Branch daily. SERTraline 2021-0 Yes [id number] 200mg Take 2 Univers 100 mg 4-12 tablets by ity of tablet 00:00: mouth [place] 00 daily. Medical Branch buPROPion 0 Yes [id number] 150mg Take 1 U nivers XL 4-12 tablet by ity of (WELLBUTRIN 00:00: mouth [place] XL) 150 mg 00 daily. Medical 24 hr Branch tablet busPIRone 2021-0 Yes [id number] 30mg Take 1 Un matt 30 mg 4-12 tablet by ity of tablet 00:00: mouth 2 [place] 00 (two) Medical times Branch daily. SERTraline 2021-0 Yes [id number] 200mg Take 2 Univers 100 mg 4-12 tablets by ity of tablet 00:00: mouth [place] 00 daily. Medical Branch buPROPion 2021-0 Yes [id number] 150mg Take 1 U nivers XL 4-12 tablet by ity of (WELLBUTRIN 00:00: mouth [place] XL) 150 mg 00 daily. Medical 24 hr Branch tablet busPIRone 2021-0 Yes [id number] 30mg Take 1 Un matt 30 mg 4-12 tablet by ity of tablet 00:00: mouth 2 [place] 00 (two) Medical times Branch daily. SERTraline 2021-0 Yes [id number] 200mg Take 2 Univers 100 mg 4-12 tablets by ity of tablet 00:00: mouth [place] 00 daily. Medical Branch raltegravir 0 Yes [id number] 400mg Take 1 Univers (ISENTRESS) 3-28 tablet by ity of 400 mg 00:00: mouth 2 [place] tablet 00 (two) Medical times Branch daily. raltegravir 2021-0 Yes [id number] 400mg Take 1 Univers (ISENTRESS) 3-28 tablet by ity of 400 mg 00:00: mouth 2 [place] tablet 00 (two) Medical times Branch daily. raltegravir 2021-0 Yes [id number] 400mg Take 1 Univers (ISENTRESS) 3-28 tablet by ity of 400 mg 00:00: mouth 2 [place] tablet 00 (two) Medical times Branch daily. raltegravir 0 Yes [id number] 400mg Take 1 Univers (ISENTRESS) 3-28 tablet by ity of 400 mg 00:00: mouth 2 [place] tablet 00 (two) Medical times Branch daily. raltegravir 0 Yes [id number] 400mg Take 1 Univers (ISENTRESS) 3-28 tablet by ity of 400 mg 00:00: mouth 2 [place] tablet 00 (two) Medical times Branch daily. LORazepam 1 0 Yes [id number] 1mg Take 1 Univers mg tablet 3-21 [...] a tablet day. buPROPion 2021-0 2021- No [id number] 150mg Take 1 Univers XL 1-24 04-12 tablet by ity of (WELLBUTRIN 00:00: 00:[place] XL) 150 mg 00 :00 daily. Medical 24 hr Branch tablet busPIRone 2021- No [id number] 30mg Take 1 U nivers 30 mg 06-1512 tablet by ity of tablet 00:00: 00:00 mouth 2 [place] 00 :00 (two) Medical times Branch daily. SERTraline 2021- No [id number] 200mg Take 2 Univers 100 mg 06-1512 tablets by ity of tablet 00:00: 00:00 mouth [place] 00 :00 daily. Medical Branch emtricitabi Yes [id number] Take one Univers ne-tenofovi 1-20 po daily ity of r alafen 00:00: [place] (DESCOVY) 00 Medical tablet Branch emtricitabi Yes [id number] Take one Univers ne-tenofovi 1-20 po daily ity of r alafen 00:00: [place] (DESCOVY) 00 Medical tablet Branch emtricitabi Yes [id number] Take one Univers ne-tenofovi 1-20 po daily ity of r alafen 00:00: [place] (DESCOVY) 00 Medical tablet Branch emtricitabi Yes [id number] Take one Univers ne-tenofovi 1-20 po daily ity of r alafen 00:00: [place] (DESCOVY) 00 Medical tablet Branch emtricitabi Yes [id number] Take one Univers ne-tenofovi 1-20 po daily ity of r alafen 00:00: [place] (DESCOVY) 00 Medical tablet Branch metoprolol Yes [id number] Take 1 [facility] tartrate 7-26 tablet Health (Lopressor) 00:00: (100 mg 100 MG 00 total) by tablet mouth 2 (two) times a day AND 0.5 tablets (50 mg total) every night. metoprolol Yes [id number] Take 1 [facility] tartrate 7-26 tablet Health [...] (affected area in groin) hydrALAZINE Yes 50mg Q.[id number] Take 50 mg [facility]i (APRESOLINE 7-[id number] ) 50 MG 10:51: 3D (three) Hospita tablet 25 times a l day. busPIRone 0 Yes 20mg QD Take 20 mg Me thodi (BUSPAR) 10 -[address] MG tablet 10:51: nightly. [...] 10:51: mouth Hospita tablet 25 daily. l lisinopril Yes 40mg Q.5D Take 40 mg [...] area in groin) hydrALAZINE 0 Yes 50mg Q.[id number] Take 50 mg [facility] (APRESOLINE 7-19 [id number] mouth [address] ) 50 MG [...] buPROPion 0 Yes 150mg QD Take 150 Met hodi [...] Hospita tablet 25 daily. l nystatin-tr [id number] [facility] 3 ity of cream 00:00: (three) [place] 00 times Medical daily. Branch nystatin-tr 2020-0 Yes [id number] Apply to [facility] 7 area(s) 3 ity of cream 00:00: (three) [place] 00 times Medical daily. Branch nystatin-tr 2020-0 Yes [id number] Apply to [facility] 7 area(s) 3 ity of cream 00:00: (three) [place] 00 times Medical daily. Branch nystatin-tr Yes [id number] Apply to [facility] 11-25 area(s) 3 ity of cream 00:00: (three) [place] 00 times Medical daily. Branch nystatin-tr Yes [id number] Apply to [facility] 11-25 area(s) 3 ity of cream 00:00: (three) [place] 00 times Medical daily. Branch budesonide- 0 2021- No 1{puff} QD Inhale 1 Methodi formoteroL 625 06-[address] (SYMBICORT) 14:37: 00:00 morning. H ospita 160-4.5 02 :00 l mcg/actuati on inhaler hydrALAZINE 0 Yes [id number] 50mg Q.[id number] Take 1 UT (Apresoline 6-11 [id number] tablet (50 Health ) 50 MG 00:00: 3D mg total) tablet 00 by mouth 3 (three) times a day. hydrALAZINE Yes [id number] 50mg Q.[id number] Take 1 [facility] (Apresoline 6-11 [id number] tablet (50 Health ) 50 MG 00:00: [...] MG 5-30 Health tablet 00:00: 00 sertraline No 200mg 200 mg. UT (Zoloft) 30 02-22 Health 100 MG 00:00: 00:00 tablet 00 :00 mupirocin Yes UT (Bactroban) 10-17 Health 2 % 00:00: ointment 00 mupirocin Yes UT (Bactroban) 28 Health 2 % 00:00: ointment 00 nystatin 2020- No [id number] Q.25D Take 5 mL Methodi (MYCOSTATIN 10-06 [...] time tablet 00 each day. Eliquis 5 2021-0 Yes UT MG tablet [...] e 4-10 Tablet l 14:00: should not [place] 00 be chewed or crushed. (Same as: Protonix) Amiodarone No Notes: Memor ia 4-10 (Same as: l 14:00: Cordarone) [place] Amlodipine No Notes: Memor ia 4-10 (Same as: l 14:00: Norvasc) [place] emtricitabi No Notes: Caesar lisa ne 200 MG / 4-10 (Same as: l tenofovir 14:00: Descovy) Herm ariel alafenamide 00 Non-formul 25 MG Oral nancy Tablet [Descovy] Sertraline No Notes: Memor ia 4-10 (Same as: l 14:00: Zoloft) [place] 00 pantoprazol No Notes: [place] lisa e 4-10 Tablet l 14:00: should not [place] 00 be chewed or crushed. (Same as: Protonix) Amiodarone No Notes: Memor ia 4-10 (Same as: l 14:00: Cordarone) [place] Amlodipine No Notes: Memor ia 4-10 (Same as: l 14:00: Norvasc) [place] emtricitabi No Notes: Caesar lisa ne 200 MG / 4-10 (Same as: l tenofovir 14:00: Descovy) Herm ariel alafenamide 00 Non-formul 25 MG Oral nancy Tablet [Descovy] Sertraline No Notes: Memor ia 4-10 (Same as: l 14:00: Zoloft) [place] 00 pantoprazol No Notes: Caesar lisa e 4-10 Tablet l 14:00: should not [place] 00 be chewed or crushed. (Same as: Protonix) Amiodarone No Notes: Memor ia 4-10 (Same as: l 14:00: Cordarone) [place] 00 Amlodipine No Notes: Memor ia 4-10 [...] ia 4-10 (Same as: l 14:00: Zoloft) [place] 00 pantoprazol No Notes: Caesar lisa e 4-10 Tablet l 14:00: should not [place] 00 be chewed or crushed. (Same as: [...] ia 4-10 (Same as: l 14:00: Cordarone) [place] Sucralfate No Notes: May M emoria 4-10 interfere l 02:00: w/enteral [place] 00 feeds - Take 1 hr before or 2 hr after antacids, dairy pdt, meals & minerals - On empty stomach. For patients unable to swallow tablet, dissolve in 10mL - 30mL of water or juice and stir before giving. (Same As: Carafate) Saline No Notes: Memoria Flush 0.9% 4-10 (Same as: l 02:00: BD [place] 00 Posiflush) Eliquis No Notes: Memoria 4-10 [...] 0.9% 4-10 (Same as: l 02:00: BD [place] 00 Posiflush) Eliquis No Notes: Memoria 4-10 Same as: l 02:00: Eliquis [place] Hydralazine No Notes: Caesar lisa Hydrochlori 4-10 (Same as: l de 50 MG 02:00: Apresoline Her mitchell Oral Tablet 00 ) May interfere w/enteral feedings Take With Food Sucralfate No Notes: May M emoria 4-10 interfere l 02:00: w/enteral [place] 00 feeds - Take 1 hr before or 2 hr after antacids, dairy pdt, meals & minerals - On empty stomach. For patients unable to swallow tablet, dissolve in 10mL - 30mL of water or juice and stir before giving. (Same As: Carafate) Saline No Notes: Memoria Flush 0.9% 4-10 (Same as: l 02:00: BD [place] 00 Posiflush) Eliquis No Notes: Memoria 4-10 Same as: l 02:00: Eliquis [place] Hydralazine No Notes: Caesar lisa Hydrochlori 4-10 (Same as: l de 50 MG 02:00: Apresoline Her [place] Oral Tablet 00 ) May interfere w/enteral feedings Take With Food Sucralfate No Notes: May M emoria 4-10 interfere l 02:00: w/enteral [place] 00 feeds - Take 1 hr before or 2 hr after antacids, dairy pdt, meals & minerals - On empty stomach. For patients unable to swallow tablet, dissolve in 10mL - 30mL of water or juice and stir before giving. (Same As: Carafate) Saline No Notes: Memoria Flush 0.9% 4-10 (Same as: l 02:00: BD [place] 00 Posiflush) Eliquis No Notes: Memoria 4-10 Same as: l 02:00: Eliquis [place] Hydralazine No Notes: Caesar lisa Hydrochlori 4-10 (Same as: l de 50 MG 02:00: Apresoline Her [place] Oral Tablet 00 ) May interfere w/enteral feedings Take With Food Sucralfate No Notes: May M emoria 4-10 interfere l 02:00: w/enteral [place] 00 feeds - Take 1 hr before or 2 hr after antacids, dairy pdt, meals & minerals - On empty stomach. For patients unable to swallow tablet, dissolve in 10mL - 30mL of water or juice and stir before giving. (Same As: Carafate) Saline No Notes: Memoria Flush 0.9% 4-10 (Same as: l 02:00: BD [place] 00 Posiflush) Eliquis No Notes: Memoria 4-10 Same as: l 02:00: Eliquis [place] Hydralazine No Notes: Caesar lisa Hydrochlori 4-10 (Same as: l de 50 MG 02:00: Apresoline [place] Oral Tablet 00 ) May interfere w/enteral feedings Take With Food Sucralfate No Notes: May M emoria 4-10 interfere l 02:00: w/enteral [place] 00 feeds - Take 1 hr before [...] Memoria 4-10 Same as: l 02:00: Eliquis [place] 00 Hydralazine No Notes: Caesar lisa Hydrochlori 4-10 (Same as: l de 50 MG 02:00: Apresoline Her [place] Oral Tablet 00 ) May interfere w/enteral feedings Take With Food acetaminoph No Notes: Do M emoria en-codeine 4-10 not exceed l #3 00:12: 4gm/day of [place] 00 acetaminop hen. (Same as: Tylenol with Codeine # 3) acetaminoph No Notes: Do M emoria en-codeine 4-10 not exceed l #3 00:12: 4gm/day of [place] acetaminop hen. (Same as: Tylenol with Codeine # 3) acetaminoph No Notes: Do M emoria en-codeine 4-10 not exceed l #3 00:12: 4gm/day of [place] acetaminop hen. (Same as: Tylenol with Codeine [...] oria 4-09 tab, l 22:00: Route: PO, [place] Drug form: TAB, BID, Dosing Weight 97.273, kg, Start date: 08/29/20 17:00:00 CDT, Duration: 30 day, Stop date: 09/28/20 9:00:00 CDT metoprolol 1-0 No 100 mg, 1 Me moria tartrate 4-09 tab, l 22:00: Route: PO, [place] Drug form: TAB, BID, Dosing Weight 97.273, [...] tartrate 4-09 tab, l 22:00: Route: PO, [place] 00 Drug form: TAB, BID, Dosing Weight [...] oria 4-09 tab, l 22:00: Route: PO, [place] Drug form: TAB, BID, Dosing Weight 97.273, kg, Start date: 08/29/20 17:00:00 CDT, Duration: 30 day, Stop date: 09/28/20 9:00:00 CDT metoprolol 1-0 No 100 mg, 1 Me moria tartrate 4-09 tab, l 22:00: Route: PO, [place] Drug form: TAB, BID, Dosing Weight 97.273, [...] tartrate 4-09 tab, l 22:00: Route: PO, [place] Drug form: TAB, BID, Dosing Weight 97.273, [...] oria 4-09 tab, l 22:00: Route: PO, [place] Drug form: TAB, BID, Dosing Weight 97.273, [...] Notes: Memoria 4-09 (Same l 17:07: as:MORPhin [place] 00 e Sulfate) Morphine 2020-0 No Notes: Memoria 4-09 (Same l 17:07: as:MORPhin [place] 00 e Sulfate) Morphine 0 No Notes: Memoria 4- (Same l 17:07: as:MORPhin [place] 00 e Sulfate) Morphine No Notes: Memoria 4- (Same l 17:07: as:MORPhin [place] 00 e Sulfate) Morphine No Notes: Memoria 4- (Same l 17:07: as:MORPhin [place] 00 e Sulfate) Morphine No Notes: Memoria [...] 30 tab, 0 coated Refill(s), tablet Pharmacy: [facility], 162.56, cm, 08/29/20 5:30:00 CDT, Height, 97.273, kg, 08/29/20 5:30:00 CDT, Weight pantoprazol 2020-0 Yes 40 mg = 1 M emoria e 40 mg 4-09 tab, PO, l oral 15:27: Daily, # [place] enteric 00 30 tab, 0 coated Refill(s), tablet Pharmacy: [facility] 149, 162.56, cm, 08/29/20 5:30:00 CDT, Height, 97.273, kg, 08/29/20 5:30:00 CDT, Weight pantoprazol 2020-0 Yes 40 mg = 1 M emoria e 40 mg 4-09 tab, PO, l oral 15:27: Daily, # [place] enteric 00 30 tab, 0 coated Refill(s), tablet Pharmacy: [facility] 149, 162.56, cm, 08/29/20 5:30:00 CDT, Height, 97.273, kg, 08/29/20 5:30:00 CDT, Weight pantoprazol 1-0 Yes 40 mg = 1 M emoria e 40 mg 4-09 tab, PO, l oral 15:27: Daily, # [place] enteric 00 30 tab, 0 coated Refill(s), tablet Pharmacy: [facility] 149, 162.56, cm, 08/29/20 5:30:00 CDT, Height, 97.273, kg, 08/29/20 5:30:00 CDT, Weight pantoprazol 1-0 Yes 40 mg = 1 M emoria e 40 mg 4-09 tab, PO, l oral 15:27: Daily, # [place] enteric 00 30 tab, 0 coated Refill(s), tablet Pharmacy: [facility] 149, 162.56, cm, 08/29/20 5:30:00 CDT, Height, 97.273, kg, 08/29/20 5:30:00 CDT, Weight pantoprazol 1-0 Yes 40 mg = 1 M emoria e 40 mg 4-09 tab, PO, l oral 15:27: Daily, # [place] enteric 00 30 tab, 0 coated Refill(s), tablet Pharmacy: [facility] 149, 162.56, cm, 08/29/20 5:30:00 CDT, Height, 97.273, kg, 08/29/20 5:30:00 CDT, Weight pantoprazol 1-0 Yes 40 mg = 1 M emoria e 40 mg 4-09 tab, PO, l oral 15:27: Daily, # [place] enteric 00 30 tab, 0 coated Refill(s), tablet Pharmacy: [facility] 149, 162.56, cm, 08/29/20 5:30:00 CDT, Height, 97.273, kg, 08/29/20 5:30:00 CDT, Weight pantoprazol 1-0 No 40 mg = 1 M emoria e 40 mg 4-09 tab, PO, l oral 15:26: Daily, # [place] enteric 00 30 tab, 0 coated Refill(s) tablet sucralfate 2020-0 Yes 1 gm = 1 Mem oria 1 g oral 4-09 tab, PO, l tablet 15:26: Q12H, # 28 Skyl[place] 00 tab, 0 Refill(s), Pharmacy: [facility], 162.56, cm, 08/29/20 5:30:00 CDT, Height, 97.273, kg, 08/29/20 5:30:00 CDT, Weight pantoprazol 2020-0 No 40 mg = 1 M emoria e 40 mg 4-09 tab, PO, l oral 15:26: Daily, # [place] enteric 00 30 tab, 0 coated Refill(s) tablet sucralfate 2020-0 Yes 1 gm = 1 Mem oria 1 g oral 4-09 tab, PO, l tablet 15:26: Q12H, # 28 [place] 00 tab, 0 Refill(s), Pharmacy: [facility] 149, 162.56, cm, 08/29/20 5:30:00 [...] 00 tab, 0 Refill(s), Pharmacy: [place] [address], 162.56, cm, 08/29/20 5:30:00 CDT, Height, 97.273, [...] [place]yl[place] nn 00 tab, 0 Refill(s), Pharmacy: [facility] 149, 162.56, cm, 08/29/20 5:30:00 CDT, Height, 97.273, kg, 08/29/20 5:30:00 CDT, Weight pantoprazol 0 No 40 mg = 1 M emoria e 40 mg 4-09 tab, PO, l oral 15:26: Daily, # [place] enteric 00 30 tab, 0 coated Refill(s) tablet sucralfate 0 Yes 1 gm = 1 Mem oria 1 g oral 4-09 tab, PO, l tablet 15:26: Q12H, # 28 [place] 00 tab, 0 Refill(s), Pharmacy: [place] [address], 162.56, cm, 08/29/20 5:30:00 CDT, Height, 97.273, kg, 08/29/20 5:30:00 CDT, Weight pantoprazol 0 No 40 mg = 1 M emoria e 40 mg 4-09 tab, PO, l oral 15:26: Daily, # [place] enteric 00 30 tab, 0 coated Refill(s) tablet sucralfate Yes 1 gm = 1 Mem oria 1 g oral 4-09 tab, PO, l tablet 15:26: Q12H, # 28 [place] 00 tab, 0 Refill(s), Pharmacy: [facility] 149, 162.56, cm, 08/29/20 5:30:00 [...] [place] 00 tab, 0 Refill(s), Pharmacy: [facility], 162.56, cm, 08/29/20 5:30:00 CDT, Height, 97.273, kg, 08/29/20 5:30:00 CDT, Weight Saline 2020-0 No Notes: Memoria Flush 0.9% 4- (Same as: l 15:25: BD [place] 00 Posiflush) Lorazepam No Notes: Memori a 4-09 (Same as: l 15:25: Ativan) Saline No Notes: Memoria Flush 0.9% 4-09 (Same as: l 15:25: BD [place] 00 Posiflush) Lorazepam No Notes: Memori a 4-09 (Same as: l 15:25: Ativan) Saline No Notes: Memoria Flush 0.9% 4-09 (Same as: l 15:25: BD [place] 00 Posiflush) Saline No Notes: Memoria Flush 0.9% 4-09 (Same as: l 15:25: BD [place] 00 Posiflush) Lorazepam No Notes: Memori a 4-09 (Same as: l 15:25: Ativan) Lorazepam No Notes: Memori a 4-09 (Same as: l 15:25: Ativan) Saline No Notes: Memoria Flush 0.9% 4-09 (Same as: l 15:25: BD [place] 00 Posiflush) Lorazepam No Notes: Memori a 4-09 (Same as: l 15:25: Ativan) Saline No Notes: Memoria Flush 0.9% 4-09 (Same as: l 15:25: BD [place] 00 Posiflush) Lorazepam No Notes: Memori a 4-09 (Same as: l 15:25: Ativan) Saline No Notes: Memoria Flush 0.9% 4-09 (Same as: l 15:25: BD [place] 00 Posiflush) Lorazepam No Notes: Memori a 4-09 (Same as: l 15:25: Ativan) Isuprel HCl No Route: IV, Memoria (ANES) 0.2 4-09 Drug form: l mg + 15:00: INJ, Dosing Weight 97.3, kg, Start date: 08/29/20 10:00:00 CDT, Stop date: 08/29/20 11:00:00 CDT Isuprel HCl 2020-0 No Route: IV, Memoria (ANES) 0.2 08-29 Drug form: l mg + 15:00: INJ, [place] Dosing Weight 97.3, kg, Start date: 08/29/20 10:00:00 CDT, Stop date: 08/29/20 11:00:00 CDT Isuprel HCl 2020-0 No Route: IV, Memoria (ANES) 0.2 08-29 Drug form: l mg + 15:00: INJ, [place] Dosing Weight 97.3, kg, Start date: 08/29/20 10:00:00 CDT, Stop date: 08/29/20 11:00:00 CDT Isuprel HCl 2020-0 No Route: IV, Memoria (ANES) 0.2 08-29 Drug form: l mg + 15:00: INJ, [place] Dosing Weight 97.3, kg, Start date: 08/29/20 10:00:00 CDT, Stop date: 08/29/20 11:00:00 CDT Isuprel HCl 2020-0 No Route: IV, Memoria (ANES) 0.2 08-29 Drug form: l mg + 15:00: INJ, [place] Dosing Weight 97.3, kg, Start date: 08/29/20 10:00:00 CDT, Stop date: 08/29/20 11:00:00 CDT Isuprel HCl 2020-0 No Route: IV, Memoria (ANES) 0.2 08-29 Drug form: l mg + 15:00: INJ, [place] Dosing Weight 97.3, kg, Start date: 08/29/20 [...] 08-29 Drug form: l 14:18: INJ, ONCE, [place] 00 Stop date: 08/29/20 9:18:00 CDT Labetalol [...] lisa 08-29 Route: l 14:01: IVP, PRN, [place] 00 Dosing Weight 97.273, kg, PRN Benzodiaze [...] ia 08-29 Route: l 14:01: IVP, ONCE, [place] 00 Dosing Weight 97.273, kg, PRN Nausea & Vomiting, Start date: 08/29/20 9:01:00 CDT Labetalol 1-0 No 10 mg, Memori a 08-29 Route: l 14:01: IVP, [place] 00 Q5Min, Dosing Weight 97.273, kg, PRN [...] lisa 08-29 Route: l 14:01: IVP, PRN, [place] 00 Dosing Weight 97.273, kg, PRN Benzodiaze pine Reversal, Initial dose, Start date: 08/29/20 9:01:00 CDT, Duration: 30 day, Stop date: 09/28/20 9:00:00 CDT Naloxone 1-0 No 0.4 mg, Memori a 08-29 Route: l 14:01: IVP, [place] 00 Q2MIN, Dosing Weight 97.273, kg, PRN Narcotic Reversal, Start date: 08/29/20 9:01:00 CDT, Duration: 8 doses or times, Stop date: Limited # of times Ondansetron 1-0 No 4 mg, Memor ia 08-29 Route: l 14:01: IVP, ONCE, [place] 00 Dosing Weight 97.273, kg, PRN Nausea & Vomiting, Start date: 08/29/20 9:01:00 CDT Labetalol 1-0 No 10 mg, Memori a 08-29 Route: l 14:01: IVP, [place] 00 Q5Min, Dosing Weight 97.273, kg, PRN [...] oria ne 08-29 Route: l 14:01: IVP, [place] 00 Q5Min, Dosing Weight 97.273, kg, PRN Pain Score 7-10, Start date: 08/29/20 9:01:00 CDT, Duration: 4 doses or times, Stop date: Limited # of times Flumazenil 1-0 No 0.2 mg, [place] lisa 08-29 Route: l 14:01: IVP, PRN, [place] 00 Dosing Weight 97.273, kg, PRN Benzodiaze [...] Memori a 08-29 Route: l 14:01: IVP, [place] 00 Q5Min, Dosing Weight 97.273, kg, PRN [...] 08-29 Route: PO, l 14:01: Drug form: [place] 00 TAB, ONCE, Dosing Weight 97.273, kg, [...] oria ne 08-29 Route: l 14:01: IVP, [place] 00 Q5Min, Dosing Weight 97.273, kg, PRN [...] Memori a 08-29 Route: l 14:01: IVP, [place] 00 Q2MIN, Dosing Weight 97.273, kg, PRN [...] 08-29 Route: PO, l 14:01: Drug form: [place] 00 TAB, ONCE, Dosing Weight 97.273, kg, [...] oria ne 08-29 Route: l 14:01: IVP, [place] 00 Q5Min, Dosing Weight 97.273, kg, PRN Pain Score 7-10, Start date: 08/29/20 9:01:00 CDT, Duration: 4 doses or times, Stop date: Limited # of times Flumazenil 2021-0 No 0.2 mg, Caesar lisa 08-29 Route: l 14:01: IVP, PRN, [place] 00 Dosing Weight 97.273, kg, PRN Benzodiaze [...] oria ne 08-29 Route: l 14:01: IVP, [place] 00 Q5Min, Dosing Weight 97.273, kg, PRN [...] Memori a 08-29 Route: l 14:01: IVP, [place] 00 Q2MIN, Dosing Weight 97.273, kg, PRN [...] 08-29 Drug form: l 13:52: INJ, ONCE, [place] 00 Stop date: 08/29/20 8:52:00 CDT rocuronium 2021-0 [...] 08-29 Drug form: l 13:42: INJ, ONCE, [place] 00 Stop date: 08/29/20 8:42:00 CDT fentaNYL No [...] Drug form: l 10 13:15: INJ, Start [place] microgram date: 08/29/20 8:15:00 CDT, Stop date: 08/29/20 9:15:00 CDT norepinephr 0 No Route: IV, Memoria ine (ANES) 08-29 Drug form: l 10 13:15: INJ, Start [place] microgram date: 08/29/20 8:15:00 CDT, Stop date: 08/29/20 9:15:00 CDT norepinephr 0 No Route: IV, Memoria ine (ANES) 08-29 Drug form: l 10 13:15: INJ, Start [place] microgram date: 08/29/20 8:15:00 CDT, Stop date: 08/29/20 9:15:00 CDT norepinephr 0 No Route: IV, Memoria ine (ANES) 08-29 Drug form: l 10 13:15: INJ, Start [place] microgram date: 08/29/20 8:15:00 CDT, Stop date: 08/29/20 9:15:00 CDT norepinephr 202-0 No Route: IV, Memoria ine (ANES) 4- Drug form: l 10 13:15: INJ, Start [place] microgram 00 date: 08/29/20 8:15:00 CDT, Stop date: 08/29/20 9:15:00 CDT norepinephr 202-0 No Route: IV, Memoria ine (ANES) 4- Drug form: l 10 13:15: INJ, Start [place] microgram 00 date: 08/29/20 8:15:00 CDT, Stop [...] 4-09 Total l 0.9% IV 12:30: Volume: [place] (ANES) 1000 00 1,000, mL Start date: 08/29/20 7:30:00 CDT, Stop date: 08/29/20 8:30:00 CDT Sodium 2021-0 No Route: IV, Memor ia Chloride 4-09 Total l 0.9% IV 12:30: Volume: [place] (ANES) 1000 00 1,000, mL Start date: 08/29/20 7:30:00 CDT, Stop date: 08/29/20 8:30:00 CDT Sodium 2021-0 No Route: IV, Memor ia Chloride 4-09 Total l 0.9% IV 12:30: Volume: Marty (ANES) 1000 00 1,000, mL Start date: 08/29/20 7:30:00 CDT, Stop date: 08/29/20 8:30:00 CDT Sodium 2021-0 No Route: IV, Memor ia Chloride 4-09 Total l 0.9% IV 12:30: Volume: [place] (ANES) 1000 00 1,000, mL Start date: 08/29/20 7:30:00 CDT, Stop date: 08/29/20 8:30:00 CDT Sodium 2021-0 No Route: IV, Memor ia Chloride 4-09 Total l 0.9% IV 12:30: Volume: [place] (ANES) 1000 00 1,000, mL Start date: [...] PO, l Hydrochlori 11:42: Q24H, # 30 [place] de 150 MG 00 tab, 0 Extended Refill(s) Release Tablet 24 HR Yes 150 mg = 1 Memori a Bupropion -09 tab, PO, l Hydrochlori 11:42: Q24H, # 30 [place] de 150 MG 00 tab, 0 Extended Refill(s) Release Tablet 24 HR Yes 150 mg = 1 Memori a Bupropion 4-09 tab, PO, l Hydrochlori 11:42: Q24H, # 30 [place] de 150 MG 00 tab, 0 Extended Refill(s) Release Tablet 24 HR Yes 150 mg = 1 Memori a Bupropion -09 tab, PO, l Hydrochlori 11:42: Q24H, # 30 [place] de 150 MG 00 tab, 0 Extended Refill(s) Release Tablet 24 HR Yes 150 mg = 1 Memori a Bupropion 4-09 tab, PO, l Hydrochlori 11:42: Q24H, # 30 [place] de 150 MG 00 tab, 0 Extended Refill(s) Release Tablet apixaban 5 Yes 5 mg, PO, Me moria MG Oral 4-09 Q12H, tab, l Tablet 11:41: 0 [place] [Eliquis] 00 Refill(s), For Atrial Fibrilatio n apixaban 5 2020-0 Yes 5 mg, PO, Me moria MG Oral 08-29 Q12H, tab, l Tablet 11:41: 0 [place] [Eliquis] 00 Refill(s), For Atrial Fibrilatio n apixaban 5 2020-0 Yes 5 mg, PO, Me moria MG Oral 08-29 Q12H, tab, l Tablet 11:41: 0 [place] [Eliquis] 00 Refill(s), For Atrial Fibrilatio n apixaban 5 2020-0 Yes 5 mg, PO, Me moria MG Oral 08-29 Q12H, tab, l Tablet 11:41: 0 [place] [Eliquis] 00 Refill(s), For Atrial Fibrilatio n [...] tab, PO, l tablet 11:38: Daily, # [place] 00 90 tab, 3 Refill(s) AMIODarone 2020-0 Yes 200 mg = 1 M emoria 200 mg oral 4-09 tab, PO, l tablet 11:38: Daily, # [place] 00 90 tab, 3 Refill(s) AMIODarone 2020-0 Yes 200 mg = 1 M emoria 200 mg oral 4-09 tab, PO, l tablet 11:38: Daily, # [place] 00 90 tab, 3 Refill(s) AMIODarone 2020-0 Yes 200 mg = 1 M emoria 200 mg oral 4-09 tab, PO, l tablet 11:38: Daily, # [place] 00 90 tab, 3 Refill(s) AMIODarone 2020-0 Yes 200 mg = 1 M emoria 200 mg oral 4-09 tab, PO, l tablet 11:38: Daily, # [place] 00 90 tab, 3 Refill(s) AMIODarone 2020-0 Yes 200 mg = 1 M emoria 200 mg oral 4-09 tab, PO, l tablet 11:38: Daily, # [place] 00 90 tab, 3 Refill(s) AMIODarone 2020-0 Yes 200 mg = 1 M emoria 200 mg oral 4-09 tab, PO, l tablet 11:38: Daily, # [place] 00 90 tab, 3 Refill(s) normal No [...] st 00:00: [facility] 00 l Eliquis 5 2020-0 Yes Methodi mg [...] mouth ity of 10 mg 08:06: daily. [place] tablet 41 [facility] albuterol 2019-0 Yes Univers 90 4-14 ity of mcg/actuati 00:00: [place] on inhaler 00 [facility] albuterol 2019-0 Yes Univers 90 4-14 ity of mcg/actuati 00:00: [place] on inhaler 00 [facility] albuterol 2019-0 Yes Univers 90 4-14 ity of mcg/actuati 00:00: [place] on inhaler 00 [facility] albuterol 2019-0 Yes Univers 90 4-14 ity of mcg/actuati 00:00: [place] on inhaler 00 [facility] albuterol 2019-0 Yes Univers 90 4-14 ity of mcg/actuati 00:00: [place] on inhaler 00 [facility] albuterol 2019-0 Yes albuterol [place] (2.5 [...] Immunizations Ordered Filled Immunization Date Status Comments [facility] e Immunization Name Name PFIZER COVID-19 2020-07-23 Completed [facility] VACC[facility]ATION 00:00:00 [facility] PFIZER COVID-19 2020-07-23 Completed [facility] VACCINATION 00:00:00 [facility] PFIZER COVID-19 2020-07-02 Completed [facility] M[facility] VACCINATION 00:00:00 [facility] PFIZER COVID-19 2020-07-02 Completed [facility] M[facility] VACCINATION 00:00:00 [facility] Influenza Virus 2017-03-08 Completed Universit y of Vaccine 00:00:00 [facility] Influenza Virus 2017-03-08 Completed Universit y of Vaccine 00:00:00 [facility] Influenza Virus 2017-03-08 Completed Universit y of Vaccine 00:00:00 [facility] Influenza Virus 2017-03-08 Completed Universit y of Vaccine 00:00:00 [facility] Influenza Virus 2017-03-08 Completed Universit y of Vaccine 00:00:00 [facility] Influenza Virus 2014-01-30 Completed Universit y of Vaccine (3+ yrs) 00:00:00 [facility] Pneumococcal 13 2014-01-30 Completed Universit y of Conjugate, PCV13 00:00:00 [facility] dical (Prevnar 13) Branch Influenza Virus 2014-01-30 Completed Universit y of Vaccine (3+ yrs) 00:00:00 [facility] Pneumococcal 13 2014-01-30 Completed Universit y of Conjugate, PCV13 00:00[facility] Influenza Virus 2014-01-30 Completed Universit y of Vaccine (3+ yrs) 00:00:00 [facility] Pneumococcal 13 2014-01-30 Completed Universit y of Conjugate, PCV13 00:00:00 [facility] (Prevnar 13) Branch Influenza Virus 2014-01-30 Completed Universit y of Vaccine (3+ yrs) 00:00:00 [facility] Pneumococcal 13 2014-01-30 Completed Universit y of Conjugate, PCV13 00:00:00 [facility] Branch Influenza Virus 2014-01-30 Completed Universit y of Vaccine (3+ yrs) 00:00:00 [facility] Pneumococcal 13 2014-01-30 Completed Universit y of Conjugate, PCV13 00:00:00 [facility] (Prevnar 13) Branch Pneumococcal 2012-02-16 Completed University o f Polysaccharide, 00:00:00 [place] Med ical PPSV23 (PNEUMOVAX) Branch Influenza Virus 2012-02-16 Completed Universit y of Vaccine 00:00:00 [facility] PPD (TB) 2012-02-16 Completed University of 00:00:00 [facility] Pneumococcal 2012-02-16 Completed University o f Polysaccharide, 00:00:00 [place] [facility] ical PPSV23 (PNEUMOVAX) Branch Influenza Virus 2012-02-16 Completed Universit y of Vaccine 00:00:00 [facility] PPD (TB) 2012-02-16 Completed University of 00:00:00 [facility] Pneumococcal 2012-02-16 Completed University o f Polysaccharide, 00:00:00 [place] [facility] PPSV23 (PNEUMOVAX) Branch Influenza Virus 2012-02-16 Completed Universit y of Vaccine 00:00:00 [facility] PPD (TB) 2012-02-16 Completed University of 00:00:00 [facility] Pneumococcal 2012-02-16 Completed University o f Polysaccharide, 00:00:00 [place] [facility] ical PPSV23 (PNEUMOVAX) Branch Influenza Virus 2012-02-16 Completed Universit y of Vaccine 00:00:00 [facility] PPD (TB) 2012-02-16 Completed University of 00:00:00 [facility] Pneumococcal 2012-02-16 Completed University o f Polysaccharide, 00:00:00 [place] [facility] PPSV23 (PNEUMOVAX) Branch Influenza Virus 2012-02-16 Completed Universit y of Vaccine 00:00:00 [facility] PPD (TB) 2012-02-16 Completed University of 00:00:00 [facility] Hep B, Adol or Pedi 2011-09-01 Completed Unive rsity of Dosage 00:00:00 [facility] Hep B, Adol or Pedi 2011-09-01 Completed Unive rsity of Dosage 00:00:00 [facility] Hep B, Adol or Pedi 2011-09-01 Completed Unive rsity of Dosage 00:00:00 [facility] Hep B, Adol or Pedi 2011-09-01 Completed Unive rsity of Dosage 00:00:00 [facility] Hep B, Adol or Pedi 2011-09-01 Completed Unive rsity of Dosage 00:00:00 [facility] Hep B, Adol or Pedi 2011-03-17 Completed Unive rsity of Dosage 00:00:[address] [facility] Hep B, Adol or Pedi 2011-03-17 Completed Unive rsity of Dosage 00:00:00 [facility] Hep B, Adol or Pedi 2011-03-17 Completed Unive rsity of Dosage 00:00:[address] [facility] Hep B, Adol or Pedi 2011-03-17 Completed Unive rsity of Dosage 00:00:00 [facility] Hep B, Adol or Pedi 2011-03-17 Completed Unive rsity of Dosage 00:00:00 [facility] Influenza Virus 2011-02-10 Completed Universit y of Vaccine 00:00:00 [place] [facility] Hep B, Adol or Pedi 2011-02-10 Completed Unive rsity of Dosage 00:00:00 [facility] Influenza Virus 2011-02-10 Completed Universit y of Vaccine 00:00:00 [facility] Hep B, Adol or Pedi 2011-02-10 Completed Unive rsity of Dosage 00:00:00 [facility] Influenza Virus 2011-02-10 Completed Universit y of Vaccine 00:00:00 [facility] Hep B, Adol or Pedi 2011-02-10 Completed Unive rsity of Dosage 00:00:00 [facility] Influenza Virus 2011-02-10 Completed Universit y of Vaccine 00:00:00 [facility] Hep B, Adol or Pedi 2011-02-10 Completed Unive rsity of Dosage 00:00:00 [facility] Influenza Virus 2011-02-10 Completed Universit y of Vaccine 00:00:00 [facility] Hep B, Adol or Pedi 2011-02-10 Completed Unive rsity of Dosage 00:00:00 [facility] PPD (TB) 2010-11-18 Completed University of 00:00:00 [facility] TDAP (ADACEL) 2010-11-18 Completed University of VACCINE 00:00:00 [facility] PPD (TB) 2010-11-18 Completed University of 00:00:00 [facility] TDAP (ADACEL) 2010-11-18 Completed University of VACCINE 00:00:00 [facility] PPD (TB) 2010-11-18 Completed University of 00:00:00 [facility] TDAP (ADACEL) 2010-11-18 Completed University of VACCINE 00:00:00 [facility] PPD (TB) 2010-11-18 Completed University of 00:00:00 [facility] TDAP (ADACEL) 2010-11-18 Completed University of VACCINE 00:00:00 [facility] PPD (TB) 2010-11-18 Completed University of 00:00:00 [facility] TDAP (ADACEL) 2010-11-18 Completed University of VACCINE 00:00:00 [facility] HEPATITIS A 2004-03-02 Completed University of 00:00:00 [facility] HEPATITIS A 2004-03-02 Completed University of 00:00:00 [facility] HEPATITIS A 2004-03-02 Completed University of 00:00:00 [facility] HEPATITIS A 2004-03-02 Completed University of 00:00:00 [facility] HEPATITIS A 2004-03-02 Completed University of 00:00:00 [facility] HEPATITIS A 2003-08-01 Completed University of 00:00:00 [facility] HEPATITIS A 2003-08-01 Completed University of 00:00:00 [facility] HEPATITIS A 2003-08-01 Completed University of 00:00:00 [facility] HEPATITIS A 2003-08-01 Completed University of 00:00:00 [facility] HEPATITIS A 2003-08-01 Completed University of 00:00:00 [facility] Pneumococcal 2001-10-04 Completed University o f Polysaccharide, 00:00:00 [place] [facility] PPSV23 (PNEUMOVAX) Branch PPD (TB) 2001-10-04 Completed University of 00:00:00 [facility] Pneumococcal 2001-10-04 Completed University o f Polysaccharide, 00:00:00 [place] [facility] ical PPSV23 (PNEUMOVAX) Branch PPD (TB) 2001-10-04 Completed University of 00:00:00 [facility] Pneumococcal 2001-10-04 Completed University o f Polysaccharide, 00:00:00 [place] [facility] ical PPSV23 (PNEUMOVAX) Branch PPD (TB) 2001-10-04 Completed University of 00:00:00 [facility] Pneumococcal 2001-10-04 Completed University o f Polysaccharide, 00:00:00 [place] [facility] ical PPSV23 (PNEUMOVAX) Branch PPD (TB) 2001-10-04 Completed University of 00:00:00 [facility] Pneumococcal 2001-10-04 Completed University o f Polysaccharide, 00:00:00 [place] [facility] ical PPSV23 (PNEUMOVAX) Branch PPD (TB) 2001-10-04 Completed University of 00:00:00 [facility] Vital Signs Vital Name Observation Time Observation Value Comments Source Systolic blood 2021-12-13 06:39:53 170 mm[Hg] Univer sity of pressure [facility] Diastolic blood 2021-12-13 06:39:53 96 mm[Hg] Unive rsity of pressure [facility] Heart rate 2021-12-13 06:39:53 60 /min [facility] of [facility] Respiratory rate 2021-12-13 06:39:53 18 /min Univ ersity of [facility] Oxygen saturation in 2021-12-13 06:39:53 98 /min [facility] Arterial blood by [facility] Pulse oximetry Branch Body temperature 2021-12-13 04:57:00 36.56 Amina [facility] ersity [facility] Body height 2021-12-13 04:57:00 162.6 cm Universi ty of [facility] Body weight 2021-12-13 04:57:00 90.719 kg Universi ty of [facility] BMI 2021-12-13 04:57:00 34.33 kg/m2 Universi ty [facility] Systolic blood 2021-08-21 13:13:00 191 mm[Hg] Univer sity of pressure [facility] Diastolic blood 2021-08-21 13:13:00 99 mm[Hg] Unive rsity of pressure [facility] Heart rate 2021-08-21 13:13:00 52 /min Universi ty [facility] Body temperature 2021-08-21 13:11:00 36.5 Amina [facility] 2021-08-21 13:11:00 16 /min [facility] Body height 2021-08-21 13:11:00 162.6 cm Universi ty [facility] Body weight 2021-08-21 13:11:00 93.759 kg Universi ty [facility] BMI 2021-08-21 13:11:00 35.48 kg/m2 Universi [facility] Oxygen saturation in 2021-08-21 13:11:00 95 /min University of Arterial blood by [facility] Pulse oximetry Branch Systolic blood 2021-07-14 15:18:00 142 mm[Hg] [facility] pressure Diastolic blood 2021-07-14 15:18:00 76 mm[Hg[facility] Heart rate 2021-07-14 15:18:00 61 [facility] 2021-07-14 15:18:00 162.6 cm [facility] Body weight 2021-07-14 15:18:00 94.802 kg [facility] BMI 2021-07-14 15:18:00 35.87 kg/m2 [facility] Systolic blood 2020-12-08 15:48:00 125 mm[Hg] [facility] Di[facility] blood 2020-12-08 15:48:00 76 mm[Hg] [facility] pressure Heart rate 2020-12-08 15:48:00 64 /min [facility] Body temperature 2020-12-08 15:48:00 36.61 Amina [facility] Respiratory rate 2020-12-08 15:48:00 17 /min [facility] Body height 2020-12-08 15:48:00 162.6 cm [facility] Body weight 2020-12-08 15:48:00 98.884 kg [facility] BMI 2020-12-08 15:48:00 37.42 kg/m2 [facility] Oxygen saturation in 2020-12-08 15:48:00 97 /min [facility] Arterial blood by Pulse oximetry Respitory Rate 2020-08-30 13:00:00 Memori al [place] Systolic (mm Hg) 2020-08-30 13:00:00 Caesar rial [place] Diastolic (mm Hg) 2020-08-30 13:00:00 Mem orial [place] Systolic (mm Hg) 2020-08-30 11:00:00 Caesar rial [place] Diastolic (mm Hg) 2020-08-30 11:00:00 Mem orial [place] Temperature Oral (F) 2020-08-30 11:00:00 98.4 F [facility] [place] Respitory Rate 2020-08-30 11:00:00 Memori al [place] Respitory Rate 2020-08-30 10:00:00 Memori al [place] Systolic (mm Hg) 2020-08-30 10:00:00 Caesar rial [place] Diastolic (mm Hg) 2020-08-30 10:00:00 Mem orial [place] Temperature Oral (F) 2020-08-30 00:00:00 96.9 F [facility] [place] Temperature Oral (F) 2020-08-29 11:26:00 97.6 F [facility] [place] Height 2020-08-29 10:30:00 162.56 cm [facility] [place] Weight 2020-08-29 10:30:00 [facility] [place] BMI Calculated 2020-08-29 10:30:00 Memori al [place] Procedures Procedure Date / Time Performing Clinician Source Performed MEDICATION CORRESPONDENCE 2022-01-06 05:01:00 Doctor Unassigned, [facility] MEDICATION CORRESPONDENCE 2021-12-25 05:01:00 Doctor Unassigned, [facility] CT CERVICAL SPINE WO 2021-12-13 05:48:16 Bill Guo [facility] CONTRAST Medical Branch CT HEAD WO CONTRAST 2021-12-13 05:48:16 Bill Guo [facility] [place] CT LUMBAR SPINE WO 2021-12-13 05:48:16 Bill Guo [facility] [place] CONTRAST Medical Branch CT THORACIC SPINE WO 2021-12-13 05:48:16 Bill Guo [facility] CONTRAST Medical Branch ECG 12-LEAD 2021-07-14 15:14:00 Michi Liraaleshia [facility] [id number] 2021-06-17 00:00:00 RIKY Freedman [facility] GASTROINTESTINAL PANEL 2020-12-08 22:21:00 Jailyn [facility] XR ABDOMEN 1 VW 2020-12-08 18:06:32 Eliseo Arce spital OR [place] < 1 HOUR 2020-09-05 22:39:00 Eliseo Arce spital SURGICAL PATHOLOGY REQUEST 2020-09-05 21:54:00 Eliseo Arce [facility] XR CHEST 1 VW PORTABLE 2020-09-05 19:55:[address] [facility] DISCHARGE PATIENT 2020-09-05 17:27:55 Lucas Harris [facility] LA AN ELECTIVE 2020-09-05 16:47:23 [facility], INTRAOPERATIVE 2020-09-05 16:27[facility] 2020-09-05 15:04:00 Sarai Maharaj [facility] TIME (PTT) M. PROTHROMBIN TIME WITH INR 2020-09-05 15:04:00 Mindy Maharaj [facility] M. Plan of Care Planned Activity Planned Date Details Comments Source Future Scheduled 2022-01-14 SHINGLES VACCINES (1 Met [facility] Test 04:11:46 of 2) [code = SHINGLES VACCINES (1 of 2)] Future Scheduled 2022-01-14 Screening for [facility] Test 04:11:46 malignant neoplasm of cervix (procedure) [code = 269412017] Future Scheduled 2022-01-14 BREAST CANCER [facility] Test 04:11:46 SCREENING [code = BREAST CANCER SCREENING] Future Scheduled 2022-01-14 COLONOSCOPY SCREENING [facility] Test 04:11:46 [code = COLONOSCOPY SCREENING] Future Scheduled 2022-01-14 HEPATITIS B VACCINES Met [facility] Test 04:11:46 (1 of 3 - Risk 3-dose series) [code = HEPATITIS B VACCINES (1 of 3 - Risk 3-dose series)] Future Scheduled 2022-01-14 COVID-19 VACCINE (3 - [facility] Test 04:11:46 Booster for Pfizer series) [code = COVID-19 VACCINE (3 - Booster for Pfizer series)] Future Scheduled 2022-01-14 65+ PNEUMOCOCCAL [facility] Test 04:11:46 VACCINE (4 - PPSV23 or PCV20) [code = 65+ PNEUMOCOCCAL VACCINE (4 - PPSV23 or PCV20)] Future Scheduled 2022-01-14 INFLUENZA VACCINE Method [facility] Test 04:11:46 [code = INFLUENZA VACCINE] Future Scheduled 2021-08-26 Screening for [facility] Test 13:02:23 malignant neoplasm of cervix (procedure) [code = 377357984] Future Scheduled 2021-08-26 BREAST CANCER [facility] Test 13:02:23 SCREENING [code = BREAST CANCER SCREENING] Future Scheduled 2021-08-26 COLONOSCOPY SCREENING [facility] Test 13:02:23 [code = COLONOSCOPY SCREENING] Future Scheduled 2021-08-26 Screening for [facility] Test 13:02:23 malignant neoplasm of lung (procedure) [code = 483675065] Future Scheduled 2021-08-26 SHINGLES VACCINES (#1) [facility] Test 13:02:23 [code = SHINGLES VACCINES (#1)] Future Scheduled 2021-08-26 COVID-19 VACCINE (3 - [facility] Test 13:02:23 Pfizer risk 4-dose series) [code = COVID-19 VACCINE (3 - Pfizer risk 4-dose series)] Future Scheduled 2021-08-26 65+ PNEUMOCOCCAL [facility] Test 13:02:23 VACCINE (4 of 4 - PPSV23) [code = 65+ PNEUMOCOCCAL VACCINE (4 of 4 - PPSV23)] Future Scheduled 2021-08-26 [facility] 13:02:23 [code = INFLUENZA VACCINE] Encounters Start End Encounter Admission Attending Care Care Encounter Source Date/Time Date/Time Type Type Clinicians Facility Department ID 2021-11-16 Outpatient [facility] [id number] [place] 10:32:[id number] [facility] 2021-08-03 Inpatient Ashely, HCACL OUTD [id number] [facility] 11:30:00 Mike [id number] Psychiatric 2021-07-14 Outpatient JENNY, [facility] [id number] [place] 09:33:51 [facility] 2021-06-16 Inpatient RAUL Lund, HCACL OUTD [id number] [facility] 08:30:00 Mike [id number] Psychiatric 2021-06-15 Inpatient RAUL Lund, HCACL OUTD [id number] [facility] 10:30:00 Mike [id number] Psychiatric 2022-02-26 2022-02-26 Outpatient [facility] [id number] Univers 08:30:00 08:30:00 SANTIAGO [id number] [facility] 2022-02-26 2022-02-26 Outpatient [facility] [id number] Univers 08:30:00 08:30:00 SANTIAGO [facility] 2022-01-06 2022-01-06 Orders Doctor FERMIN Busby2.840.114 [id number] Univers 00:00:00 00:00:00 Only Unassigned, JACKELINE 350.1.13.10 ity of [place] [facility] 4.2.7.2.686 Yomi as [id number] [facility] 00[address] Branch 2021-12-25 2021-12-25 Orders Doctor FERMIN Busby2.840.114 [id number] Univers 00:00:00 00:00:00 Only Unassigned, JACKELINE 350.1.13.10 ity of [place] [facility] 4.2.7.2.686 Yomi as [phone] [facility] 009 Branch 2021-12-12 2021-12-13 Emergency X Bill GUO [facility] ERT [id number] Univers 23:53:00 01:52:00 ity of [facility] 2021-12-12 2021-12-13 Emergency Bill Guo [facility] 1.2.840.114 [id number] Univers 23:53:00 01:52:00 Kiersten BULLOCK 350.1.13.10 i [place] [id number] [facility] 084 Branch 2021-11-20 2021-11-20 Double [facility] UNIVERSIT 1.2.840.114 9 [id number] Univers 09:45:00 10:00:00 Visit Ronald [facility] 350.1.13.10 ity of [facility] [place] [id number] [facility] 316 Branch 2021-11-20 2021-11-20 Outpatient R [facility] [id number] Univers 09:45:00 09:45:00 SANTIAGO [facility] 2021-11-20 2021-11-20 Outpatient [facility] [id number] Univers 09:45:00 09:45:00 [id number] [facility] 2021-08-21 2021-08-21 Office FRANCO Cardenas 1.2.822.379 [id number] Univers 08:30:00 09:00:00 Visit [facility] 350.1.13.10 i ty of [facility] [place] [id number] [place] [id number] Branch 2021-08-05 2021-08-05 Outpatient WINTER LealCL [id number] [facility] 05:24:00 05:24:00 Mike 31 Psychiatric 2021-08-05 2021-08-05 Outpatient WINTER Leal OUTD [id number] [facility] 05:24:00 05:24:00 Mike [id number] Psychiatric 2021-07-14 2021-07-14 Office KIMBERLEY Lira 6400 1.2.840.114 13 [id number] [place] 08:45:00 09:34:[address] 350.1.13.58 Health 9.2.7.2.686 [id number] 1 2021-07-09 2021-07-09 Telephone KIMBERLEY Layton 6400 1.2.840.114 [id number] [place] 00:00:00 00:00:[address] 350.1.13.58 Health 9.2.7.2.686 [id number] 1 2021-06-17 2021-06-17 Inpatient RAUL Lund, HCACL INTE.02 [id number] [facility] 10:56:00 14:36:00 Mike [id number] Psychiatric 2021-06-17 2021-06-17 Inpatient RAUL Lund, HCACL INTE.02 [id number] [facility] 10:56:00 14:36:00 Mike 47 Psychiatric 2021-04-28 2021-04-28 Telephone Jeredimasaleshia, 1.2.840.0 [id number] Methodi 00:00:00 00:00:[address] 3.430.2.7 Hospit a .3.974729 l .8 2021-04-28 2021-04-28 Telephone Jeredimasaleshia, 1.2.840.4 [id number] 21 [id number] Methodi 00:00:00 00:00:[address] 3.430.2.7 Hospit a .3.343196 l .8 2021-03-31 2021-03-31 Orders Meisenbach, 1.2.840.1 [id number] 21 [id number] Methodi 00:00:00 00:00:00 Only Sarai M. 38877.1.1 979 s t 3.430.2.7 Hospit a .3.168085 l .8 2021-03-31 2021-03-31 Orders Meisenbach, 1.2.840.1 [id number] 21 [id number] Methodi 00:00:00 00:00:00 Only Sarai M. 89651.1.1 979 s t 3.430.2.7 Hospit a .3.253781 l .8 2021-03-24 2021-03-24 Telephone [facility], 1.2.840.4 [id number] Methodi 00:00:00 00:00:[address] 3.430.2.7 Hospit a .3.755843 l .8 2021-03-24 2021-03-24 Telephone Jeredimasaleshia, 1.2.840.1 [id number] Methodi 00:00:00 00:00:[address] 3.430.2.7 Hospit a .3.960721 l .8 2021-01-19 2021-01-19 Telephone Prabhu, 1.2.840.1 [id number] 2099 [id number] Methodi 00:00:00 00:00:[address] 3.430.2.7 Hospit a .3.634530 l .8 2021-01-19 2021-01-19 Telephone Pelletier, 1.2.840.1 [id number] 2099 [id number] Methodi 00:00:00 00:00:[address] 3.430.2.7 Hospit a .3.581657 l .8 2020-12-12 2020-12-12 Office Hematpour, [facility] 6400 1.2.840.114 12 [id number] 07:42:02 08:18:[address] 350.1.13.58 9.2.7.2.686 [id number] 1 2020-12-09 2020-12-09 Telephone Carol Ann, 1.2.840.1 [id number] Methodi 00:00:00 00:00:00 Sarai Lieberman 48992.1.1 316 s t 3.430.2.7 Hospit a .3.541848 l .8 2020-12-08 2020-12-08 [facility], 1.2.840.1 [id number] 2099 [id number] Methodi 12:35:54 23:59:00 Encounter Ray 22996.1.[address] 3.430.2.7 Hospit a .3.070724 l .8 2020-12-08 2020-12-08 Lab Jailyn, 1.2.840.1 [id number] 36947 77996 Methodi 17:25:00 17:30:[address] 3.430.2.7 Hospit a .3.499888 l .8 2020-12-08 2020-12-08 Office Jailyn, 1.2.840.1 [id number] 76985 32656 Methodi 10:30:00 11:39:56 Visit Ray 24967.1.[address] 3.430.2.7 Hospit a .3.258164 l .8 2020-12-08 2020-12-08 Travel 1.2.840.1 1.2.449.690 3984 179060 Methodi 00:00:00 00:00:[address] 3.430.2.7 0.2.7.3.698 Ho spita .3.848779 084.8 l .8 2020-12-02 2020-12-02 Double [facility] 1.2.840.114 8 [id number] 10:20:06 10:36:19 Visit Y HEALTH 350.1.13.10 CLINICS 4.2.7.2.686 [id number] 316 2020-11-25 2020-11-25 Office Devin [facility] 1.2.840.114 [id number] 11:06:30 11:58:14 Visit Robbi Hairston RADIOCOMMUNICATIONS TECHNICIAN 350.1.13.10 REGIONAL 4.2.7.2.686 MATERNAL [id number] & CHILD [address] [place] [address] 2020-11-25 2020-11-25 [facility] 1.2.814.296 7265 4592 00:00:00 00:00:00 [facility] 350.1.13.10 CLINICS 4.2.7.2.686 [id number] 089 2020-11-25 2020-11-25 Telephone DevinRUST 1.2.538.587 5215 0821 00:00:00 00:00:00 Robbi Marika RADIOCOMMUNICATIONS TECHNICIAN 350.1.13.10 [facility] 4.2.7.2.686 MATERNAL [id number] & CHILD [address] [place] [address] 2020-11-14 2020-11-14 Abstract Clark, 1.2.840.1 [id number] 03953 46790 Methodi 00:00:00 00:00:[address] 3.430.2.7 Hospit a .3.509923 l .8 2020-11-14 2020-11-14 Telephone Clark, 1.2.840.1 [id number] 2099 [id number] Methodi 00:00:00 00:00:[address] 3.430.2.7 Hospit a .3.652561 l .8 2020-11-07 2020-11-07 Telephone KIMBERLEY Ortiz 6400 1.2.840.114 124 [id number] 00:00:00 00:00:[address] 350.1.13.58 9.2.7.2.686 [id number] 1 2020-10-27 2020-10-27 Telephone Jailyn, 1.2.840.7 [id number] Methodi 00:00:00 00:00:[address] 3.430.2.7 Hospit a .3.125558 l .8 2020-10-24 2020-10-24 Telephone Clark, 1.2.840.1 [id number] 2099 [id number] Methodi 00:00:00 00:00:[address] 3.430.2.7 Hospit a .3.564846 l .8 2020-10-06 2020-10-12 Telemedici Jailyn, 1.2.840.1 [id number] Methodi 15:30:00 00:08:46 ne Ray 63462.1.[address] 3.430.2.7 Hospit a .3.310529 l .8 2020-09-30 2020-09-30 [facility], 1.2.840.4 [id number] 21 [id number] Methodi 00:00:00 00:00:[address] 3.430.2.7 Hospit a .3.149821 l .8 2020-09-21 2020-09-21 [facility] 1.2.840.1 1.2.588.805 2623 376628 Methodi 00:00:00 00:00:[address] 3.430.2.7 0.2.7.3.698 Ho spita .3.395945 084.8 l .8 2020-09-06 2020-09-06 [facility] 1.2.840.1 [id number] 68678 Methodi 17:42:30 23:59:[address] 3.430.2.7 Hospit a .3.752470 l .8 2020-09-06 2020-09-06 [facility], 1.2.840.1 [id number] 2099 [id number] Methodi 16:50:00 17:41:00 Encounter Ray [address]86.1.[address] 3.430.2.7 Hospit a .3.997285 l .8 2020-09-05 2020-09-05 [facility], 1.2.840.1 [id number] 2099 417056 Methodi 09:17:00 19:45:00 Encounter Ray [address].1.[address] 3.430.2.7 Hospit a .3.652467 l .8 2020-09-05 2020-09-05 [facility], 1.2.840.1 [id number] 77280 Methodi 11:30:00 13:15:[address] 3.430.2.7 Hospit a .3.705738 l .8 2020-09-05 2020-09-05 Anesthesia [facility], 1.2.840.1 [id number] 727 [id number] Methodi 11:27:00 12:20:00 Event Kirit 84729.1.1 243 s t V. 3.430.2.7 Hospit a .3.160338 l .8 2020-09-05 2020-09-05 Travel 1.2.840.1 1.2.914.167 4136 [id number] Methodi 00:00:00 00:00:[address] 3.430.2.7 0.2.7.3.698 Ho spita .3.067572 084.8 l .8 2020-09-04 2020-09-04 Telephone Meisenbach, 1.2.840.1 [id number] Methodi 00:00:00 00:00:00 Sarai Lieberman 51724.1.1 762 s t 3.430.2.7 Hospit a .3.830883 l .8 2020-09-02 2020-09-02 Telephone Meisenbach, 1.2.840.0 [id number] Methodi 00:00:00 00:00:00 Sarai Corbin. 75850.1.1 344 s t 3.430.2.7 Hospit a .3.079382 l .8 2020-08-29 2020-08-30 [id number] 10:20:00 14:10:00 Outpatient [facility] 00 l [facility] 2020-08-29 2020-08-30 Outpatient HEMATPOUR, [facility] CAR 7500 [facility] 05:20:00 09:10:00 BEVERLY Results Test Description Test Time Test Comments Results Result Comments Source Novel Coronavirus 2019 Inhouse 2021-08-03 18:08:00 Test Item Value Reference Range Interpretation Comme nts Novel Coronavirus 2018 Negative Negative Posit bruno results are indicative of the Inhouse (test code = presenc e fxPJHK-BwP-1 RNA, clinical COVNONPUI) correlation wit h patient [...] qualitative detection of nucleic acid s from rrpLUKZ-NtS-7 virus and diagn osis of SARS-CoV-2 virusinfection. It is an Emergency Use Authorization ( EUA) testauthorized by the U.S. FDA. BASIC METABOLIC [id number] 09:37:00 Test Item Value Reference Range Interpretation [...] = 9.0 mg/dL 8.0-10.5 N CA) PROTHROMBIN [id number] 09:32:00 Test Item Value Reference Range Interpretation [...] (to prevent recurrent infar ct). 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 [facility] - XR CHEST 1 [id number] 00:00:00 [facility] : 1955 Sex: F FAX: Carmenza Kelly DO [phone] [place]: St: [facility] FAX: Mike Scales MD [phone] FAX: Bahman Chopra [phone] Name: LIO WATTS [facility] : 1955 Age/S: 66/F [address] [place] [address] Unit #: [id number] Loc: [place] [address] Phys: Bahman Chopra [facility] Acct: [id number] Dis Date: Status: ADM IN PHONE #: [phone] Exam Date: 06/17/2021 1320 FAX #: [phone] Reason: WATCHMAN EXAMS: CPT CODE: [id number] XR CHEST 1 V 01128 PROCEDURE INFORMATION: Exam: XR Chest Exam date [...] likely magnified by projection without interval change. C alcified plaque thoracic aorta. Faintly radiopaque atrial appendage [...] Chopra Technologist: RT Taylor(R) Trnscrd Date/Time/By: 06/17/2021 (565) : By: JessicaL Orig Print D/T: S: 06/17/2021 (0429) PAGE 1 Signed ReportCOVID 19 Asymptomatic IH [id number] 12:29:00 Test Item Value Reference Range Interpretation [...] high or waivedcomplexit y tests. BASIC METABOLIC [id number] 11:37:00 Test Item Value Reference Range Interpretation [...] code = 9.0 mg/dL 8.0-10.5 N CA) [id number] 11:37:00 Test Item Value Reference Range Interpretation Comments PREALBUMIN (test code = PREALB) 24.3 mg/dL 16.0-40.0 N PROTHROMBIN [id number] 11:03:00 Test Item Value Reference Range Interpretation [...] (to prevent recurrent infar ct). CBC W/AUTO [id number] 10:59:00 Test Item Value Reference Range Interpretation [...] code = 0.00 x10 3/uL 0.0-0.1 N [facility]#) - XR CHEST 2 [id number] 00:00:00 [facility] 1955 Sex: F FAX: Carmenza Kelly DO [phone] [place]: St: PRE FAX: Y Mike Lund MD [phone] Name: LIO WATTS [facility] : 1955 Age/S: 66/F [address] [place] [address] Unit #: [id number] Loc: [place] [address] Phys: Mike Lund MD Acct: [id number] Dis Date: Status: PRE [facility] PHONE #: [phone] Exam Date: 06/16/2021 1120 FAX #: [phone] Reason: PREOP EXAMS: CPT CODE: [id number] XR CHEST 2 V 08394 PROCEDURE INFORMATION: Exam: XR Chest Exam date [...] IMPRESSION: No acute cardiopulmonaryfindings at 1134 Reported and signed by: Selene Collins D.O. CC: Carmenza Rahman DO; Mike Lund MD Technologist: Danielle Nix RT(R) Trnscrd Date/Time/By: 06/16/2021 (6604) : By: [email or web address] Orig Print D/T: S: 06/16/2021 (2041) PAGE 1 Signed ReportGastrointestinal [id number] 04:35:05 Test Item Value Reference Interpretation Comments [...] Rotavirus PCR (test Not Detected code = 9211999) Salmonella PCR (test Not Detected code = [...] PCR Not Detected (test code = 7124) [facility] nbrybni6071-24-44 19:30:47 Test Item Value Reference Range Interpretation Comments Case number (test [id number] code = 4288891) Surgical pathology See link below for PDF report (test code = Lab Report 2255) Result status (test This is Supplemental code = 3929079) Report for [id number] [facility]2021-04-09 16:31:00 Test Item Value Reference Range Interpretation Comments POC Activated Clotting Time (test code 153 s = POC Activated Clotting Time) [facility]LuzmtlsCUVZLUTVLI8713-63-19 16:31:00 Test Item Value Reference Range Interpretation Comments POC Activated Clotting Time (test code 153 s = POC Activated Clotting Time) [facility] HospitalLltdikqTGJJRWTBHL3206-97-12 16:31:00 Test Item Value Reference Range Interpretation Comments POC Activated Clotting Time (test code 153 s = POC Activated Clotting Time) [facility] HospitalPegenbdSDYRXMWDKK4350-68-51 16:31:00 Test Item Value Reference Range Interpretation Comments POC Activated Clotting Time (test code 153 s = POC Activated Clotting Time) [facility] HospitalObjaancUOTYSSGBYC4458-36-36 16:31:00 Test Item Value Reference Range Interpretation Comments POC Activated Clotting Time (test code 153 s = POC Activated Clotting Time) [facility] HospitalZmiuduyDUTDZLWMQU7872-63-10 16:31:00 Test Item Value Reference Range Interpretation Comments POC Activated Clotting Time (test code 153 s = POC Activated Clotting Time) [facility] HospitalPmdpccoVZTNPDYUCG6255-65-23 16:31:00 Test Item Value Reference Range Interpretation Comments POC Activated Clotting Time (test code 153 s = POC Activated Clotting Time) [facility] HospitalUrfpnslRBONBAVMWE8414-02-89 14:37:00 Test Item Value Reference Range Interpretation Comments POC Activated Clotting Time (test code 454 s = POC Activated Clotting Time) [facility] HospitalLzjvnejHEOIFNPGPR3986-19-31 14:37:00 Test Item Value Reference Range Interpretation Comments POC Activated Clotting Time (test code 454 s = POC Activated Clotting Time) [facility] HospitalPdjewoqXFZHNTYDEH7555-03-02 14:37:00 Test Item Value Reference Range Interpretation Comments POC Activated Clotting Time (test code 454 s = POC Activated Clotting Time) [facility] HospitalRwjokedQQGZOUCWNE2091-09-71 14:37:00 Test Item Value Reference Range Interpretation Comments POC Activated Clotting Time (test code 454 s = POC Activated Clotting Time) [facility] HospitalEiwchhxHKCHOGNFPG8992-10-45 14:37:00 Test Item Value Reference Range Interpretation Comments POC Activated Clotting Time (test code 454 s = POC Activated Clotting Time) [facility] HospitalPgfvcvoOYFKMSIICV7393-03-43 14:37:00 Test Item Value Reference Range Interpretation Comments POC Activated Clotting Time (test code 454 s = POC Activated Clotting Time) [facility] HospitalTvrlvteYNNXKETTUC8217-31-77 14:37:00 Test Item Value Reference Range Interpretation Comments POC Activated Clotting Time (test code 454 s = POC Activated Clotting Time) [facility] HospitalSemmwrlBVOKSTCVCL5863-59-87 14:13:00 Test Item Value Reference Range Interpretation Comments POC Activated Clotting Time (test code 354 s = POC Activated Clotting Time) [facility] HospitalCuryfnzKAUSANXXHL6653-43-37 14:13:00 Test Item Value Reference Range Interpretation Comments POC Activated Clotting Time (test code 354 s = POC Activated Clotting Time) [facility] HospitalTpjqjqaKAVKKUPSXG2125-72-24 14:13:00 Test Item Value Reference Range Interpretation Comments POC Activated Clotting Time (test code 354 s = POC Activated Clotting Time) [facility] HospitalErutwxxJTNPURKSIK0159-53-23 14:13:00 Test Item Value Reference Range Interpretation Comments POC Activated Clotting Time (test code 354 s = POC Activated Clotting Time) [facility] HospitalHugujryFCUZRKUIOQ0565-70-40 14:13:00 Test Item Value Reference Range Interpretation Comments POC Activated Clotting Time (test code 354 s = POC Activated Clotting Time) [facility] HospitalEaevreoULQUIDUKOB4504-44-47 14:13:00 Test Item Value Reference Range Interpretation Comments POC Activated Clotting Time (test code 354 s = POC Activated Clotting Time) [facility] HospitalCcnzqswSMWOOLTRSO0297-35-13 14:13:00 Test Item Value Reference Range Interpretation Comments POC Activated Clotting Time (test code 354 s = POC Activated Clotting Time) [facility] BRLSLFA1419-18-50 10:37:00Negative (08/29/20 5:37 AM) [facility] XUAXH0060-88-05 10:37:05609Qmnggvzj HermannCHEM PANEL 2020-08-29 10:37:0028[facility] BLILZ0810-00-51 10:37:001.01[facility] HermannCHEM RJKYM4493-90-92 10:37:08526Mojgsabw HermannCHEM ATCRL3320-07-69 10:37:003.8[facility] HermannCHEM MAJPT2055-46-78 10:37:08712Bsesqsjr HermannCHEM CZPSH4517-99-42 10:37:0028[facility] HermannCHEM LOKVY9542-50-58 10:37:009.8 [facility] HermannCHEM GLLLE4733-30-66 10:37:0011.8[facility] HermannCHEM PANEL 2020-08-29 10:37:0059[facility] HermannCHEM JTMHR2114-84-69 10:37:002.9[facility]orial XnfmdpiEMZGRSMTVK4059-14-45 10:37:006.8[facility]orial RqavrabCUWYWOUEVD1353-29-38 10:37:004.47[facility] JotnnnpGVTSXILAAA0151-68-08 10:37:0010.6[facility] QSXQMASPUB2133-49-39 10:37:0034.0[facility] DjadlitIAIMDKNRDP6191-38-35 10:37:00 76.1Memorial BcgeoqnIRMBHOYXYQ9178-64-95 10:37:00 Test Item Value Reference Range Interpretation Comments MCH (test code = MCH) 23.8 pg 27.0-31.0 [facility] TxsbhcuEOATRFKTGM1324-83-21 10:37:0031.3[facility] HermannHEMATOLOGY 2020-08-29 10:37:0018.2[facility] SgwqevqVZTJJOIDJP9495-20-00 10:37:79427Buoridew WwxtcqkFHZELKEASD5395-06-54 10:37:007.5[facility]orial NmzsnbvTLJTGDCPAY5771-22-08 10:37:00 Test Item Value Reference Range Interpretation Comments PT (test code = PT) 12.8 s 12.0-14.7 [facility] ZzxdbngCUHWYXLFVV5464-30-38 10:37:00 Test Item Value Reference Range Interpretation Comments INR (test code = INR) 0.97 1 0.85-1.17 [facility] KcxdivkRDYYDRYPJT2108-13-38 10:37:00 Test Item Value Reference Range Interpretation Comments PTT (test code = PTT) 25.0 s 22.9-35.8 Memorial IffrdtuLXVBCVKFHX4615-68-95 10:37:0070.5[facility] HermannHEMATOLOGY 2020-08-29 10:37:0018.8[facility] VxiaymuHJQKWXQXWM4643-69-41 10:37:009.5[facility] CgiotzyTSJFRFHTMR7406-28-99 10:37:000.9[facility]orial BxglklfXDZUUWMXDI9818-95-14 10:37:000.3[facility] EvsmxzvQIASLJXESW2034-43-73 10:37:004.8[facility] EEMDPFKABR4213-06-89 10:37:001.3[facility] QrnskjdECTGNLRCPE8756-44-31 10:37:000.6 Memorial GlrxmpjEYEWPARCVL3500-95-94 10:37:000.1[facility] HermannHEMATOLOGY 2020-08-29 10:37:001+ *ABN*(08/29/20 5:37 AM)[facility] FlilmcdMUQUOMRJWL5067-37-54 10:37:00Not Detected (08/29/20 5:37 AM)[facility] HermannBLOOD BANK RESULTS 2020-08-29 10:37:00Negative (08/29/20 5:37 AM)[facility] HermannCHEM INASP1146-93-91 10:37:70564Qwedixtl HermannCHEM GGSMB2175-66-16 10:37:0028[facility] HermannCHEM BUYZT2455-50-58 10:37:001.01[facility] HermannCHEM NBAWP6535-71-08 10:37:06978 [facility] HermannCHEM BKRCT6423-32-44 10:37:003.8[facility] HermannCHEM PANEL 2020-08-29 10:37:93045Qxotapko HermannCHEM FIXYB2929-96-74 10:37:0028[facility] HermannCHEM ZJEIQ2079-25-04 10:37:009.8[facility] HermannCHEM UYZJI5306-07-41 10:37:0011.8[facility] HermannCHEM MDITA0111-09-40 10:37:0059[facility] HermannCHEM LNGEV4575-39-07 10:37:002.9[facility] UbgcotuYZJVECHDRT9538-55-45 10:37:006.8 [facility] CgmexfcFRVWVYOELT9829-49-26 10:37:004.47[facility]annHEMATOLOGY 2020-08-29 10:37:0010.6[facility] MjjciblQCURTJVYIG0401-02-41 10:37:0034.0[facility] OulsqcoBRPEBMGXHP5014-06-95 10:37:0076.1[facility] IjqfpnfGHXIFHBUDV1611-78-98 10:37:00 Test Item Value Reference Range Interpretation Comments MCH (test code = MCH) 23.8 pg 27.0-31.0 [facility] KepmpuoFSZTJMEZWU6032-51-42 10:37:0031.3[facility]annHEMATOLOGY 2020-08-29 10:37:0018.2[facility] JpbruehUOBTFFJXNK2210-32-19 10:37:72595Kyflhoaf GsllldsGHIIFJAKCH0703-06-02 10:37:007.5[facility] GdatjcjKOLHBIUDXT7024-44-19 10:37:00 Test Item Value Reference Range Interpretation Comments PT (test code = PT) 12.8 s 12.0-14.7 [facility] SixlchtRJDVSINOTV4475-38-06 10:37:00 Test Item Value Reference Range Interpretation Comments INR (test code = INR) 0.97 1 0.85-1.17 [facility] CzrqoutDRUQNOOOIV8538-32-73 10:37:00 Test Item Value Reference Range Interpretation Comments PTT (test code = PTT) 25.0 s 22.9-35.8 [facility] EbcaronWJJPFQQLSQ3126-85-96 10:37:0070.5[facility]annHEMATOLOGY 2020-08-29 10:37:0018.8[facility] KrpztpnVYAMLULSLV1172-29-43 10:37:009.5[facility] IjznhjqUGPSNZTIEY1188-49-29 10:37:000.9[facility] SchskkqYZAJBABWEH4680-50-32 10:37:000.3[facility] VsklgfcWVYYIYGUNL6541-84-06 10:37:004.8[facility] QIXOJDPKWW5014-88-61 10:37:001.3[facility] BqgptyfZXFZDFBQJS4766-90-93 10:37:000.6 [facility] BxayenbJRDEBJYTXJ2026-13-19 10:37:000.1[facility]annHEMATOLOGY 2020-08-29 10:37:001+ *ABN*(08/29/20 5:37 AM)[facility] RlbgkmaCWTCNRKWBN4165-28-99 10:37:00Not Detected (08/29/20 5:37 AM)[facility]annBL[facility]OD BANK RESULTS 2020-08-29 10:37:00Negative (08/29/20 5:37 AM)[facility]annCHEM HFHZI5785-35-13 10:37:44431Kryfvvgm HermannCHEM RHIVV9869-44-55 10:37:0028[facility]annCHEM DTAZT0983-12-82 10:37:001.01[facility]annCHEM GGEKD5255-83-39 10:37:85799 [facility]annCHE[facility] FOSAB3909-45-82 10:37:003.8[facility]annCHEM PANEL 2020-08-29 10:37:85098Mldwctyz HermannCHEM FWXQH8579-86-86 10:37:0028[facility]annCHEM YRFNH7602-07-60 10:37:009.8[facility]annCHEM MJFGD4309-67-17 10:37:0011.8[facility]annCHEM JLWGL5950-35-53 10:37:0059[facility]annCHEM VCIED0891-01-89 10:37:002.9[facility] HhssebhBEQIVIMBTR8110-38-52 10:37:006.8 [facility] JqzqvnzPDMPIPRHCK5287-55-05 10:37:004.47[facility]annHEMATOLOGY 2020-08-29 10:37:0010.6[facility] PkmydxtNLJGSDLLXX1496-62-48 10:37:0034.0[facility] DghmkoxEJZJFFATYF2098-55-43 10:37:0076.1[facility] CrcacwiADOVBOCGLN3910-57-06 10:37:00 Test Item Value Reference Range Interpretation Comments MCH (test code = MCH) 23.8 pg 27.0-31.0 [facility] ZqsilhjAHALRMNHEU1594-78-68 10:37:0031.3[facility] HermannHEMATOLOGY 2020-08-29 10:37:0018.2[facility] BtqmeedALLSTILAUX9177-85-07 10:37:65489Abgrbfgg RanlploAXCVIDSMHB8549-64-18 10:37:007.5[facility] ScdynffQLHXZJLPLL2200-53-73 10:37:00 Test Item Value Reference Range Interpretation Comments PT (test code = PT) 12.8 s 12.0-14.7 [facility] SpubwesQBJCBXYRPG7524-57-38 10:37:00 Test Item Value Reference Range Interpretation Comments INR (test code = INR) 0.97 1 0.85-1.17 [facility] TxpohlrUAMDNHZBSW7662-09-75 10:37:00 Test Item Value Reference Range Interpretation Comments PTT (test code = PTT) 25.0 s 22.9-35.8 [facility] VvajxwjLTCYXTSBWZ8576-46-94 10:37:0070.5[facility]annHEMATOLOGY 2020-08-29 10:37:0018.8[facility] CgazfxkTNFUXNBLXT0704-68-44 10:37:009.5[facility] EwivxnnNFRNFOVEKZ9114-52-26 10:37:000.9[facility] PofoovoUSGIWABDWU5280-34-94 10:37:000.3[facility] MbvxsqvWCTJSGRJDF1825-02-61 10:37:004.8[facility] ZPCOBBLCMQ8518-65-43 10:37:001.3[facility] RnfjubxERRFFKNJON7118-71-02 10:37:000.6 [facility] HwekweqYCXBHFXKIQ1596-75-35 10:37:000.1[facility]annHEMATOLOGY 2020-08-29 10:37:001+ *ABN*(08/29/20 5:37 AM)[facility] RjfmyztLTDYUWMCUV4635-32-63 10:37:00Not Detected (08/29/20 5:37 AM)[facility]annBL[facility] BANK RESULTS 2020-08-29 10:37:00Negative (08/29/20 5:37 AM)[facility] HermannCHEM XXLER7884-48-52 10:37:42494Gubtyjtj HermannCHEM EALVY0647-83-73 10:37:0028[facility]annCHEM ENDHC3515-65-79 10:37:001.01[facility]annCHEM ORPOI8709-21-42 10:37:07263 [facility]annCHE[facility] JIYZS2007-48-81 10:37:003.8[facility]annCHEM PANEL 2020-08-29 10:37:12079Pxtoerhc HermannCHEM SVYMN3629-41-08 10:37:0028[facility]annCHEM KOQHJ5112-48-09 10:37:009.8[facility]annCHEM SMDJM7994-68-19 10:37:0011.8[facility] HermannCHEM ZHERR0922-20-80 10:37:0059[facility]annCHEM UYCCJ8036-35-94 10:37:002.9[facility] LatcnqmYHUEJLKRED9853-88-26 10:37:006.8 [facility] GqilfatFRCXYUUEWM9995-25-69 10:37:004.47[facility]annHEMATOLOGY 2020-08-29 10:37:0010.6[facility] YixgbopMOSKEIPXCO2577-62-14 10:37:0034.0[facility] WxzcqmoROAZCPEDSX9920-54-27 10:37:0076.1[facility] RjibexkEIXWXPOACN2772-46-65 10:37:00 Test Item Value Reference Range Interpretation Comments MCH (test code = MCH) 23.8 pg 27.0-31.0 [facility] FgwwqjkCIRPEEUXOX0660-38-63 10:37:0031.3[facility]annHEMATOLOGY 2020-08-29 10:37:0018.2[facility] CkglaagYVWCHMZDIF7476-43-73 10:37:09043Kgeatxjr CzjvqdyCYGXYOHTGX2115-73-31 10:37:007.5[facility] ZhhfizeQJITDAIMZM5210-39-95 10:37:00 Test Item Value Reference Range Interpretation Comments PT (test code = PT) 12.8 s 12.0-14.7 [facility] OyyxlmjJPZCTCKSTW9447-28-17 10:37:00 Test Item Value Reference Range Interpretation Comments INR (test code = INR) 0.97 1 0.85-1.17 [facility] NifvovyNCLQDZUMSP5698-60-04 10:37:00 Test Item Value Reference Range Interpretation Comments PTT (test code = PTT) 25.0 s 22.9-35.8 [facility] AewimtjNEMIRVONLK5535-97-60 10:37:0070.5[facility]annHEMATOLOGY 2020-08-29 10:37:0018.8[facility] QetzsouCRCDZTRISY5607-48-45 10:37:009.5[facility] NhxpdmsIYUVNHBYEU1792-05-97 10:37:000.9[facility] AvpezoeZPOZIVDDDQ3042-79-73 10:37:000.3[facility] OyaztfyESDOVHUVQD3730-99-02 10:37:004.8[facility] FOOYRYQSCJ6423-81-49 10:37:001.3[facility] EaoazplJFSXWGIZHN0755-44-27 10:37:000.6 [facility] IjeoloxEAYBKUCZBY3450-26-64 10:37:000.1[facility]annHEMATOLOGY 2020-08-29 10:37:001+ *ABN*(08/29/20 5:37 AM)[facility] QvtjwlzGINNXTDTNS7924-94-75 10:37:00Not Detected (08/29/20 5:37 AM)[facility]annBLOOD BANK RESULTS 2020-08-29 10:37:00Negative (08/29/20 5:37 AM)[facility]annCHEM JDZVX5631-85-46 10:37:77383Jxoptrgg HermannCHEM JPCNH9023-56-33 10:37:0028[facility]annCHEM VQKYQ7955-15-25 10:37:001.01[facility] HermannCHEM IIRHC0154-62-90 10:37:03688 [facility]annCHEM QUYZI6291-58-69 10:37:003.8[facility] HermannCHEM PANEL 2020-08-29 10:37:38851Qfobhhxd HermannCHEM OSPZQ9557-43-34 10:37:0028[facility]annCHEM KNZAT6017-85-65 10:37:009.8[facility] HermannCHEM SQLNA9270-09-30 10:37:0011.8[facility] HermannCHEM DONSQ1423-62-66 10:37:0059[facility]annCHEM XKVKM8203-63-50 10:37:002.9[facility] RhvkpknQDACNFBSVS3644-84-33 10:37:006.8 [facility] KjridyaZYNSXCVWYP4289-07-01 10:37:004.47[facility]annHEMATOLOGY 2020-08-29 10:37:0010.6[facility] AjgumiyKERDIKFIWL2874-71-75 10:37:0034.0[facility] OoqvaboYLQHRMSUDY5898-17-62 10:37:0076.1[facility] VlvgygeEHFBCNGBYB4268-56-71 10:37:00 Test Item Value Reference Range Interpretation Comments MCH (test code = MCH) 23.8 pg 27.0-31.0 [facility] DelluseGPTANIPKZL3182-91-25 10:37:0031.3[facility]annHEMATOLOGY 2020-08-29 10:37:0018.2[facility] LxwsqsoAUQRMAWKLV1113-33-52 10:37:85721Aqetjuvu CqtxcqqDZEBABOCIX2281-45-07 10:37:007.5[facility] HehkjzdJYFVILGEIW8603-80-32 10:37:00 Test Item Value Reference Range Interpretation Comments PT (test code = PT) 12.8 s 12.0-14.7 [facility] HqoxukwGHZNDOGSZS3863-02-20 10:37:00 Test Item Value Reference Range Interpretation Comments INR (test code = INR) 0.97 1 0.85-1.17 [facility] HcfvkloQXANBVISMK5562-02-59 10:37:00 Test Item Value Reference Range Interpretation Comments PTT (test code = PTT) 25.0 s 22.9-35.8 [facility] WonhzrbUUFOQOEUIT5109-83-12 10:37:0070.5[facility]annHEMATOLOGY 2020-08-29 10:37:0018.8[facility] UxonhqcZRZTHOTUIK0435-66-98 10:37:009.5[facility] HjncqpvAZCMWUPGQZ4132-59-09 10:37:000.9[facility] PhylbdwPZEQFXSFCM6154-69-77 10:37:000.3[facility] VkhimwnZKPTSBQXDI0496-73-98 10:37:004.8[facility] JLAPOETRPW0172-19-71 10:37:001.3[facility] UvygrupNEVHFJZNTO9568-28-08 10:37:000.6 [facility] MoxkkspKAWDAAKTID9956-07-59 10:37:000.1[facility]annHEMATOLOGY 2020-08-29 10:37:001+ *ABN*(08/29/20 5:37 AM)[facility] IftftwgYOYJVFZGVF3544-93-66 10:37:00Not Detected (08/29/20 5:37 AM)[facility]annBLOOD BANK RESULTS 2020-08-29 10:37:00Negative (08/29/20 5:37 AM)[facility] HermannCHEM EBNBD5694-98-57 10:37:23560Zevbmmpv HermannCHEM EHMVG9436-13-02 10:37:0028[facility]annCHEM LECIH1141-31-71 10:37:001.01[facility] HermannCHEM ULUTT5726-71-70 10:37:75763 [facility]annCHEM LGTPU8306-21-08 10:37:003.8[facility] HermannCHEM PANEL 2020-08-29 10:37:85760Dmvnovco HermannCHEM MYSPJ7205-45-06 10:37:0028[facility] HermannCHEM YKVZY4124-38-55 10:37:009.8[facility] HermannCHEM VYMJX0472-89-34 10:37:0011.8[facility] HermannCHEM TGKRA3763-80-71 10:37:0059[facility] HermannCHEM CDAMS0557-35-84 10:37:002.9[facility] AbqrqsiALOLPKERWR1342-29-40 10:37:006.8 [facility] BsmgbgrVQHNWJWJEU7357-94-55 10:37:004.47[facility]annHEMATOLOGY 2020-08-29 10:37:0010.6[facility] YpqrevxHRLYRZLMJW4964-13-21 10:37:0034.0[facility] OfisnljBMNEVSMYJC5600-09-76 10:37:0076.1[facility] WvktenjPNYTYTFECJ8677-44-75 10:37:00 Test Item Value Reference Range Interpretation Comments MCH (test code = MCH) 23.8 pg 27.0-31.0 [facility] SyzxxeoGLNRKNPUJR1570-86-84 10:37:0031.3[facility] HermannHEMATOLOGY 2020-08-29 10:37:0018.2[facility] JumxpweEGQVLNRDTJ6788-49-18 10:37:15480Cdvimyij EjthqmnDSPBOBWQFT4751-34-99 10:37:007.5[facility] KcuiiclAYJAGPYMML4302-31-83 10:37:00 Test Item Value Reference Range Interpretation Comments PT (test code = PT) 12.8 s 12.0-14.7 [facility] EuxpnufTPUJLHUENB8550-94-31 10:37:00 Test Item Value Reference Range Interpretation Comments INR (test code = INR) 0.97 1 0.85-1.17 [facility] TyuyxxyNACWRFMQTR4517-85-50 10:37:00 Test Item Value Reference Range Interpretation Comments PTT (test code = PTT) 25.0 s 22.9-35.8 [facility] YueehbsWNBNVSJELQ3429-87-11 10:37:0070.5[facility]annHEMATOLOGY 2020-08-29 10:37:0018.8[facility] EjuqovjKVMTQRGSIJ0057-11-75 10:37:009.5[facility] VvtartuPXNAEINQHS8658-93-13 10:37:000.9[facility] TdzexedIFSXOGLSWR7892-10-96 10:37:000.3[facility] BzbwaxiWSRTEGAQRR2953-71-75 10:37:004.8[facility] HZDPTVXTDQ5052-98-14 10:37:001.3[facility] YphfdfmUBLTNENUZR9918-93-20 10:37:000.6 [facility] SoarzasBLFBMWEFQE2873-47-07 10:37:000.1[facility]annHEMATOLOGY 2020-08-29 10:37:001+ *ABN*(08/29/20 5:37 AM)[facility] OlpgglsZEEWRHIUSZ9600-46-29 10:37:00Not Detected (08/29/20 5:37 AM)[facility]annBLOOD BANK RESULTS 2020-08-29 10:37:00Negative (08/29/20 5:37 AM)[facility]annCHEM YGYBF8493-68-94 10:37:86294Wdnazmfj HermannCHEM SOFWI8007-22-57 10:37:0028[facility]annCHEM QIQWH1229-30-65 10:37:001.01[facility] HermannCHEM WOEOD8718-34-76 10:37:65549 [facility]annCHEM QNDVE1311-21-47 10:37:003.8[facility] HermannCHEM PANEL 2020-08-29 10:37:21112Fnsvikpy HermannCHEM OPDIC1290-61-92 10:37:0028[facility] HermannCHEM RXJRL9802-86-24 10:37:009.8[facility] HermannCHEM QVVRC0175-82-34 10:37:0011.8[facility] HermannCHEM PUINI3149-38-77 10:37:0059[facility]annCHEM TDMSD6008-47-57 10:37:002.9[facility] SddcdmrVGUUGAZNOC0275-64-63 10:37:006.8 [facility] GpenxknTYREIAMXAN6658-25-69 10:37:004.47[facility]annHEMATOLOGY 2020-08-29 10:37:0010.6[facility] HgafqxgFPGWZOKUQK1059-09-97 10:37:0034.0[facility] WjbcpeqNAKNTWOBRX7832-84-29 10:37:0076.1[facility] YqqyekaNWFPIDPVMP4898-73-47 10:37:00 Test Item Value Reference Range Interpretation Comments MCH (test code = MCH) 23.8 pg 27.0-31.0 [facility] MzbygusKXKWHKQJEI0042-38-55 10:37:0031.3[facility]annHEMATOLOGY 2020-08-29 10:37:0018.2[facility] LqcwssaAUSBJNDHTB4261-87-25 10:37:24437Aegdveox WmsdcoaHEUVAGGCGS9829-91-65 10:37:007.5[facility] NvbpmmvJBEQDOSCDV8233-76-96 10:37:00 Test Item Value Reference Range Interpretation Comments PT (test code = PT) 12.8 s 12.0-14.7 [facility] NjqwomsSKCOTXMNKC8708-17-88 10:37:00 Test Item Value Reference Range Interpretation Comments INR (test code = INR) 0.97 1 0.85-1.17 [facility] MaaboilYNLVUNRBQL9525-60-15 10:37:00 Test Item Value Reference Range Interpretation Comments PTT (test code = PTT) 25.0 s 22.9-35.8 [facility] UbphvniHCEGWZRCKO9965-10-68 10:37:0070.5[facility]annHEMATOLOGY 2020-08-29 10:37:0018.8[facility] SmddtflFVNDZSFNES0917-39-09 10:37:009.5[facility] SugxnsuRPJQIELCEK4775-56-63 10:37:000.9[facility] DuqtgrsWTYEYPKATX3846-31-71 10:37:000.3[facility] DzugvizPZOULPQHXB0598-44-44 10:37:004.8[facility] UEIDJANDPC4058-66-61 10:37:001.3[facility] TdpqilhQUZMNIFELT7866-76-17 10:37:000.6 [facility] PejvutqPUMQYBWNKF5957-12-74 10:37:000.1[facility]annHEMATOLOGY 2020-08-29 10:37:001+ *ABN*(08/29/20 5:37 AM)[facility] HenkammKSQSYNXLAZ8802-17-75 10:37:00Not Detected (08/29/20 5:37 AM)[facility]YD[facility], GC, TV,PCR, IN NOFYI3352-30-58 15:38:00 Test Item Value Reference Range Interpretation Comments FT (test code = CHTR) Not detected (qualifier Not Detected N value) FT (test code = Not detected (qualifier Not Detected N NGONO) value) FT (test code = TRVG) Not detected (qualifier Not Detected N value) URINALYSIS WITH ZHKEFNHCPBC7930-14-27 10:57:00 Test Item Value Reference Range Interpretation Comments Color (test code = UCOLR) Dk. Yellow Clarity (test code = UCLAR) Hazy Glucose (test code = UGLUC) NEGATIVE NEGATIVE N Bilirubin (test code = UBILI) NEGATIVE NEGATIVE N Ketones (test code = UKET) NEGATIVE NEGATIVE N Specific [place] (test code = 1.025 1.005-1.030 A USPGR) [...]
[2022-01-15 03:26] LABS: Urine Blood Negative (Negative); Urine Glucose Negative (Negative); Urine Protein Negative (Negative)
[2022-01-15 03:37] LABS: Absolute Lymphocytes (CBC) 1.1 K/uL (0.7-4.9); Hematocrit 37.6 % (36.0-45.0); MCV 85.9 fL (80-100); MPV 6.8 fL (7.6-11.3); Protime INR 1.07; RBC Red Blood Cell Count 4.38 M/uL (3.86-4.86)
[2022-01-15 03:52] LABS: Albumin 3.3 g/dL (3.4-5.0); Bilirubin Direct 0.2 mg/dL (0-0.2); Bilirubin Total 0.6 mg/dL (0.2-1.0); Magnesium 2.2 mg/dL (1.8-2.4); Potassium 3.3 mmol/L (3.5-5.1); Troponin High Sensitivity 12.8 pg/mL (<58.9)
[2022-01-15 04:05] LABS: White Blood Cell Scan OK (OK)
[2022-01-15 04:06] LABS: Anisocytosis 1+; Blood Morphology Comment NOTED (NOT SEEN); Macrocytosis 1+; Ovalocytes 2+; Platelet Estimate ADEQ
--- NOTE | 2022-01-15 05:05 | ER ---
Nurse's Notes [facility] Name: Fawn Fleming Age: 66 yrs Sex: Female : 1955 Arrival Date: 01/15/2022 Time: 02:41 Bed 4 Private MD: Diagnosis: Essential (primary) hypertension;Hypokalemia;Fall on same level, unspecified;Unspecified injury of head, initial encounter;UTI/ Urinary tract infection, site not specified Presentation: 01/15 02:42 Chief complaint: EMS states: toned out for a fall at home. Pt was found sitting on the kd3 floor. Pt wasn't able to say what had happened. Could not remember if she had hit her head or not. Pt later complained of neck pain and was placed in a C collar. pt's also reports that she had fallen a few days ago. pt does take a blood thinner. Coronavirus screen: Vaccine status: Patient reports receiving the 2nd dose of the covid vaccine. Ebola Screen: No symptoms or risks identified at this time. Initial Sepsis Screen: Does the patient meet any 2 criteria? No. Patient's initial sepsis screen is negative. Does the patient have a suspected source of infection? No. Patient's initial sepsis screen is negative. Risk Assessment: Do you want to hurt yourself or someone else? Patient reports no desire to harm self or others. Onset of symptoms was January 15, 2022. 02:42 Method Of Arrival: EMS: [facility] kd3 02:42 Acuity: BLAYNE 3 kd3 Triage Assessment: 02:45 General: Appears in no apparent distress. Behavior is calm, cooperative. Pain: kd3 Complains of pain in lumbar area, left low back, right low back, chest and neck. Neuro: Level of Consciousness is awake, alert, obeys commands, Oriented to person, place, time, situation. Respiratory: Airway is patent Trachea midline Respiratory effort is even, unlabored, Respiratory pattern is regular, symmetrical. Historical: - Allergies: 02:45 Bactrim DS; kd3 02:45 butorphanol tartrate; kd3 02:45 Fentanyl; kd3 02:45 Reglan; kd3 02:45 Stadol; kd3 02:45 sulfamethoxazole (bulk); kd3 02:45 TRIMETHOPRIM; kd3 - PMHx: 02:45 Anxiety; Atrial Fib; Bipolar disorder; Chronic pain; esophageal varices; Migraines; kd3 Hypertension; HIV; Hepatitis; COPD; Panic Attacks; - PSHx: 02:45 Appendectomy; Cholecystectomy; hernia repair; R wrist SX; Bilateral shoulder repair; kd3 - Immunization history:: Adult Immunizations up to date. - Social history:: Smoking status: unknown. - Family history:: not pertinent. Screenin:46 Abuse screen: Denies threats or abuse. Denies injuries from another. Nutritional aa9 screening: No deficits noted. Tuberculosis screening: No symptoms or risk factors identified. Fall Risk Fall in past 12 months (25 points). Assessment: 02:45 General: Appears in no apparent distress. comfortable, Behavior is calm, cooperative. aa9 03:22 Pain: Complains of pain in headache Pain currently is 10 out of 10 on a pain scale. aa9 04:59 Reassessment: pt low orona's in bed, eyes closed, breathing unlabored. aa9 Vital Signs: 02:42 Weight 86.18 kg; Height 5 ft. 4 in. (162.56 cm); Pain 8/10; kd3 02:43 BP 214 / 128; Pulse 57; Resp 16 S; Temp 97.9(O); Pulse Ox 97% on R/A; aa9 02:49 BP 221 / 124; Pulse 71; Resp 18; Pulse Ox 97% on R/A; kd3 03:23 BP 209 / 123; Pulse 52; Resp 12; Pulse Ox 98% on R/A; aa9 04:00 BP 172 / 94; Pulse 65; Resp 16; Pulse Ox 96% on R/A; kd3 04:04 BP 172 / 94; Pulse 62; aa9 04:05 BP 172 / 94; Pulse 62; aa9 05:00 BP 199 / 102; Pulse 64; Pulse Ox 96% on R/A; aa9 05:21 BP 168 / 112; Pulse 68; Resp 16 S; Pulse Ox 100% on R/A; aa9 02:42 Body Mass Index 32.61 (86.18 kg, 162.56 cm) kd3 Crystal Coma Score: 02:51 Eye Response: spontaneous(4). Verbal Response: oriented(5). Motor Response: obeys thomas commands(6). Total: 15. 02:53 Eye Response: spontaneous(4). Verbal Response: oriented(5). Motor Response: obeys thomas commands(6). Total: 15. ED Course: 02:41 Patient arrived in ED. kl 02:45 Justus Kolb MD is Attending Physician. thomas 02:45 Triage completed. kd3 02:45 Arm band placed on right wrist. kd3 02:47 Patient has correct armband on for positive identification. kd3 03:01 XRAY Chest (1 view) In Process Unspecified. EDMS 03:23 Warm blanket given. aa9 03:36 Angelica Carlson, RN is Primary Nurse. aa9 03:41 Basic Metabolic Panel Sent. aa9 03:41 LFT's Sent. aa9 03:41 Magnesium Sent. aa9 03:41 NT PRO-BNP Sent. aa9 03:41 Troponin HS Sent. aa9 03:57 CT Traumagram (Head C Spine CAP wo con) In Process Unspecified. EDMS 04:01 Inserted saline lock: 24 gauge in right ,using aseptic technique. breast Blood kd3 collected. 05:00 No provider procedures requiring assistance completed. aa9 05:04 Per Carne MD is Referral Physician. thomas 05:21 IV discontinued, intact, bleeding controlled, No redness/swelling at site. Pressure aa9 dressing applied. Administered Medications: 02:25 Drug: Pepcid (famotidine) 20 mg {Note: right breast.} Route: IVP; Site: Other; kl 04:05 Follow up: Response: No adverse reaction aa9 03:30 Drug: Zofran (Ondansetron) 4 mg {Note: right breast.} Route: IVP; Site: Other; kl 04:05 Follow up: Response: No adverse reaction aa9 03:31 Drug: morphine 4 mg {Note: right breast.} Route: IVP; Infused Over: 4 mins; Site: Other;kl 04:05 Follow up: Response: No adverse reaction; RASS: Alert and Calm (0) aa9 03:32 Drug: hydrALAZINE 10 mg {Note: right breast.} Route: IVP; Site: Other; kl 04:04 Follow up: BP 172 / 94; Pulse 62 bpm aa9 04:05 Follow up: Response: No adverse reaction aa9 03:32 Drug: HydrALAZINE 25 mg Route: PO; kl 04:05 Follow up: BP 172 / 94; Pulse 62 bpm aa9 04:05 Follow up: Response: No adverse reaction aa9 04:04 Drug: Potassium Effervescent Tablet 25 mEq Route: PO; aa9 04:05 Follow up: Response: No adverse reaction aa9 04:51 Drug: morphine 4 mg {Note: right breast.} Route: IVP; Infused Over: 4 mins; Site: Other;aa9 04:58 Follow up: Response: No adverse reaction; Pain is decreased; RASS: Alert and Calm (0) aa9 04:51 Drug: Zofran (Ondansetron) 4 mg {Note: right breast.} Route: IVP; Site: Other; aa9 04:58 Follow up: Response: No adverse reaction aa9 04:58 Drug: Rocephin (cefTRIAXone) 1 grams {Note: right breast.} Route: IV; Rate: per aa9 protocol; Site: Other; 04:58 Follow up: Response: No adverse reaction; IV Status: Completed infusion; IV Intake: 88uanp9 Medication: 05:21 VIS not applicable for this client. aa9 Intake: 04:58 IV: 10ml; Total: 10ml. aa9 Outcome: 05:04 Discharge ordered by MD. guzman 05:21 Discharged to home via wheelchair. aa9 05:21 Condition: stable 05:21 Discharge instructions given to patient, Instructed on discharge instructions, follow up and referral plans. medication usage, Demonstrated understanding of instructions, follow-up care, medications, Prescriptions given X 1. 05:22 Patient left the ED. aa9 Signatures: Dispatcher [employer] EDPaige Reyes RN RN kl Anderson, Corey, MD MD cha Doucette, Kyli, RN RN kd3 Angelica Carlson RN RN aa9
--- NOTE | 2022-01-15 05:05 | EDPHYS ---
Physician Documentation [facility] – [place], [place] Name: Fawn Fleming Age: 66 yrs Sex: Female : 1955 Arrival Date: 01/15/2022 Time: 02:41 Bed 4 Private MD: SHEELA Physician Justus Kolb HPI: 01/15 02:51 This 66 yrs old Female presents to ER via EMS with complaints of fall and htn.thomas 02:51 The patient or guardian reports pain. The complaints affect the left side of the back thomas of head, left occipital area, left base of the skull, right side of the back of head, right occipital area and right base of the skull. Context of injury: The problem was sustained at home. Onset: The symptoms/episode began/occurred 2 day(s) ago. Associated signs and symptoms: Loss of consciousness: This patient did not experience any loss of consciousness. fall , weakness. Severity of symptoms: At their worst the symptoms were mild, in the emergency department the symptoms have improved. Severity of symptoms: At their worst the symptoms were mild in the emergency department the symptoms are unchanged. Historical: - Allergies: 02:45 Bactrim DS; kd3 02:45 butorphanol tartrate; kd3 02:45 Fentanyl; kd3 02:45 Reglan; kd3 02:45 Stadol; kd3 02:45 sulfamethoxazole (bulk); kd3 02:45 TRIMETHOPRIM; kd3 - PMHx: 02:45 Anxiety; Atrial Fib; Bipolar disorder; Chronic pain; esophageal varices; Migraines; kd3 Hypertension; HIV; Hepatitis; COPD; Panic Attacks; - PSHx: 02:45 Appendectomy; Cholecystectomy; hernia repair; R wrist SX; Bilateral shoulder repair; kd3 - Immunization history:: Adult Immunizations up to date. - Social history:: Smoking status: unknown. - Family history:: not pertinent. ROS: 02:51 Constitutional: Negative for fever, chills, and weight loss, Eyes: Negative for injury, thomas pain, redness, and discharge, ENT: Negative for injury, pain, and discharge, Neck: Negative for injury, pain, and swelling, Cardiovascular: Negative for chest pain, palpitations, and edema, Respiratory: Negative for shortness of breath, cough, wheezing, and pleuritic chest pain, Abdomen/GI: Negative for abdominal pain, nausea, vomiting, diarrhea, and constipation, Back: Negative for injury and pain, : Negative for injury, bleeding, discharge, and swelling, MS/Extremity: Negative for injury and deformity, Skin: Negative for injury, rash, and discoloration, Neuro: Negative for headache, weakness, numbness, tingling, and seizure, Psych: Negative for depression, anxiety, suicide ideation, homicidal ideation, and hallucinations, Allergy/Immunology: Negative for hives, rash, and allergies, Endocrine: Negative for neck swelling, polydipsia, polyuria, polyphagia, and marked weight changes, Hematologic/Lymphatic: Negative for swollen nodes, abnormal bleeding, and unusual bruising. Exam: 02:51 Constitutional: This is a well developed, well nourished patient who is awake, alert, thomas and in no acute distress. Head/Face: Normocephalic, atraumatic. Eyes: Pupils equal round and reactive to light, extra-ocular motions intact. Lids and lashes normal. Conjunctiva and sclera are non-icteric and not injected. Cornea within normal limits. Periorbital areas with no swelling, redness, or edema. ENT: Nares patent. No nasal discharge, no septal abnormalities noted. Tympanic membranes are normal and external auditory canals are clear. Oropharynx with no redness, swelling, or masses, exudates, or evidence of obstruction, uvula midline. Mucous membranes moist. Neck: Trachea midline, no thyromegaly or masses palpated, and no cervical lymphadenopathy. Supple, full range of motion without nuchal rigidity, or vertebral point tenderness. No Meningismus. Chest/axilla: Normal chest wall appearance and motion. Nontender with no deformity. No lesions are appreciated. Cardiovascular: Regular rate and rhythm with a normal S1 and S2. No gallops, murmurs, or rubs. Normal PMI, no JVD. No pulse deficits. Respiratory: Lungs have equal breath sounds bilaterally, clear to auscultation and percussion. No rales, rhonchi or wheezes noted. No increased work of breathing, no retractions or nasal flaring. Abdomen/GI: Soft, non-tender, with normal bowel sounds. No distension or tympany. No guarding or rebound. No evidence of tenderness throughout. Back: No spinal tenderness. No costovertebral tenderness. Full range of motion. Female : Normal external genitalia. MS/ Extremity: Pulses equal, no cyanosis. Neurovascular intact. Full, normal range of motion. Neuro: Awake and alert, GCS 15, oriented to person, place, time, and situation. Cranial nerves II-XII grossly intact. Motor strength 5/5 in all extremities. Sensory grossly intact. Cerebellar exam normal. Normal gait. Psych: Awake, alert, with orientation to person, place and time. Behavior, mood, and affect are within normal limits. 02:51 Skin: Appearance: ecchymosis, that are mild, of the right arm and left arm, abscess, not appreciated, cellulitis, is not appreciated, induration, is not appreciated. 02:55 ECG was reviewed by the Attending Physician. [facility] Vital Signs: 02:42 Weight 86.18 kg; Height 5 ft. 4 in. (162.56 cm); Pain 8/10; kd3 02:43 BP 214 / 128; Pulse 57; Resp 16 S; Temp 97.9(O); Pulse Ox 97% on R/A; aa9 02:49 BP 221 / 124; Pulse 71; Resp 18; Pulse Ox 97% on R/A; kd3 03:23 BP 209 / 123; Pulse 52; Resp 12; Pulse Ox 98% on R/A; aa9 04:00 BP 172 / 94; Pulse 65; Resp 16; Pulse Ox 96% on R/A; kd3 04:04 BP 172 / 94; Pulse 62; aa9 04:05 BP 172 / 94; Pulse 62; aa9 05:00 BP 199 / 102; Pulse 64; Pulse Ox 96% on R/A; aa9 05:21 BP 168 / 112; Pulse 68; Resp 16 S; Pulse Ox 100% on R/A; aa9 02:42 Body Mass Index 32.61 (86.18 kg, 162.56 cm) kd3 Crystal Coma Score: 02:51 Eye Response: spontaneous(4). Verbal Response: oriented(5). Motor Response: obeys thomas commands(6). Total: 15. 02:53 Eye Response: spontaneous(4). Verbal Response: oriented(5). Motor Response: obeys thomas commands(6). Total: 15. MDM: 02:45 Patient medically screened. [facility] 02:53 Differential diagnosis: Laceration of Intracranial bleed- Concussion cerebral thomas contusion. Differential Diagnosis altered mental status. Data reviewed: vital signs, nurses notes, EMS record, lab test result(s), EKG, radiologic studies. Data interpreted: Pulse oximetry: on room air is 97 %. Test interpretation: by ED physician or midlevel provider: ECG, plain radiologic studies. Counseling: I had a detailed discussion with the patient and/or guardian regarding: the historical points, exam findings, and any diagnostic results supporting the discharge/admit diagnosis, the presence of at least one elevated blood pressure reading (>120/80) during this emergency department visit, lab results, radiology results. 01/15 02:47 Order name: Basic Metabolic Panel; Complete Time: 03:55 [facility] 01/15 02:47 Order name: CBC with Diff; Complete Time: 04:27 [facility] 01/15 02:47 Order name: LFT's; Complete Time: 03:55 [facility] 01/15 02:47 Order name: Magnesium; Complete Time: 03:55 [facility] 01/15 02:47 Order name: NT PRO-BNP; Complete Time: 03:55 [facility] 01/15 02:47 Order name: PT-INR; Complete Time: 03:41 [facility] 01/15 02:47 Order name: Troponin HS; Complete Time: 03:55 [facility] 01/15 02:47 Order name: XRAY Chest (1 view) [facility] 01/15 02:47 Order name: CT Traumagram (Head C Spine CAP wo con) [facility] 01/15 03:26 Order name: Urine Dipstick-Ancillary; Complete Time: 03:41 [facility] 01/15 03:41 Order name: CBC Smear Scan; Complete Time: 04:27 [facility] 01/15 04:32 Order name: Urine Culture [facility] 01/15 02:47 Order name: EKG; Complete Time: 02:47 [facility] 01/15 02:47 Order name: Cardiac monitoring; Complete Time: 02:48 [facility] 01/15 02:47 Order name: EKG - Nurse/Tech; Complete Time: 02:55 [facility] 01/15 02:47 Order name: IV Saline Lock; Complete Time: 03:37 [facility] 01/15 02:47 Order name: Labs collected and sent; Complete Time: 03:37 [facility] 01/15 02:47 Order name: O2 Per Protocol; Complete Time: 02:48 [facility] 01/15 02:47 Order name: O2 Sat Monitoring; Complete Time: 02:48 [facility] 01/15 02:47 Order name: Urine Dipstick-Ancillary (obtain specimen); Complete Time: 03:37 [facility] 01/15 04:27 Order name: PO challenge: juice; Complete Time: 04:44 [facility] EC:55 Rate is 60 beats/min. Rhythm is regular. QRS [place] is Normal. DC interval is normal. QRS thomas interval is normal. QT interval is normal. No Q waves. T waves are Normal. ST Segment is depressed in leads II, III, aVF, V4, V5, V6. Clinical impression: Abnormal EKG without significant change. Interpreted by me. Reviewed by me. Administered Medications: 02:25 Drug: Pepcid (famotidine) 20 mg {Note: right breast.} Route: IVP; Site: Other; kl 04:05 Follow up: Response: No adverse reaction aa9 03:30 Drug: Zofran (Ondansetron) 4 mg {Note: right breast.} Route: IVP; Site: Other; kl 04:05 Follow up: Response: No adverse reaction aa9 03:31 Drug: morphine 4 mg {Note: right breast.} Route: IVP; Infused Over: 4 mins; Site: Other;kl 04:05 Follow up: Response: No adverse reaction; RASS: Alert and Calm (0) aa9 03:32 Drug: hydrALAZINE 10 mg {Note: right breast.} Route: IVP; Site: Other; kl 04:04 Follow up: BP 172 / 94; Pulse 62 bpm aa9 04:05 Follow up: Response: No adverse reaction aa9 03:32 Drug: HydrALAZINE 25 mg Route: PO; kl 04:05 Follow up: BP 172 / 94; Pulse 62 bpm aa9 04:05 Follow up: Response: No adverse reaction aa9 04:04 Drug: Potassium Effervescent Tablet 25 mEq Route: PO; aa9 04:05 Follow up: Response: No adverse reaction aa9 04:51 Drug: morphine 4 mg {Note: right breast.} Route: IVP; Infused Over: 4 mins; Site: Other;aa9 04:58 Follow up: Response: No adverse reaction; Pain is decreased; RASS: Alert and Calm (0) aa9 04:51 Drug: Zofran (Ondansetron) 4 mg {Note: right breast.} Route: IVP; Site: Other; aa9 04:58 Follow up: Response: No adverse reaction 9 04:58 Drug: Rocephin (cefTRIAXone) 1 grams {Note: right breast.} Route: IV; Rate: per aa9 protocol; Site: Other; 04:58 Follow up: Response: No adverse reaction; IV Status: Completed infusion; IV Intake: [id number] Disposition Summary: 01/15/22 05:04 Discharge Ordered Location: Home thomas Problem: new thomas Symptoms: have improved thomas Condition: Stable thomas Diagnosis - Essential (primary) hypertension thomas - Hypokalemia thomas - Fall on same level, unspecified thoams - Unspecified injury of head, initial encounter thomas - UTI/ Urinary tract infection, site not specified thomas Followup: thomas - With: Private Physician - When: 2 - 3 days - Reason: Recheck today's complaints, Continuance of care, Re-evaluation by your physician Followup: thomas - With: - When: 2 - 3 days - Reason: Recheck today's complaints, Re-evaluation by your physician Discharge Instructions: - Discharge Summary Sheet thomas - Dysuria thomas - Head Injury, Adult thomas - Fall Prevention in the Home, Adult thomas - Hypertension, Adult thomas - How to Use a Walker thomas - Hypertension, Adult, [id number] thomas - Fall Prevention in the Home, Adult, Myft-zd-Lemm thomas - Head Injury, Adult, [id number] thomas - Hypokalemia thomas - Managing Your Hypertension thomas Forms: - Medication Reconciliation Form thomas - Thank You Letter thomas - Antibiotic Education thomas - Prescription Opioid Use thomas Prescriptions: - Cipro 250 mg Oral Tablet - take 1 tablet by ORAL route every 12 hours; 14 tablet; Refills: 0, Product thomas Selection Permitted Signatures: Dispatcher [employer] Paige Pacheco RN Justus Tian MD MD cha Doucette, Kyli RN RN kd3 Angelica Carlson RN RN aa9
[2022-01-15 05:59] VITALS: TEMP 97.9
[2022-01-15 06:28] VITALS: BP 168/112; O2SAT 100
--- NOTE | 2022-01-16 14:09 | RAD REPORT ---
EXAM DESCRIPTION: CT - Head C Spine Cap Wo Con - 01/15/2022 6:41 am CLINICAL HISTORY: The patient is 66 years old and is Female; fall TECHNIQUE: Axial computed tomography images of the head/brain and cervical spine without intravenous contrast. Sagittal and coronal reformatted images were created and reviewed. This CT exam was pe rformed using one or more of the following dose reduction techniques: automated exposure control, a djustment of the mA and/or kV according to patient size, and/or use of iterative reconstruction techn ique. COMPARISON: January 04, 2022. FINDINGS: Brain: Mild age related periventricular white matter microangiopathic changes. No hemorrhage. Ventricles: Unremarkable. No ventriculomegaly. Skull: No acute fracture. Sinuses: Unremarkable as visualized. No acute sinusitis. Mastoid air cells: Unremarkable as visualized. No mastoid effusion. Vertebrae: No acute cervical spine fracture visualized. 3 mm anterolisthesis C5 on C6, chronic in appearance. No traumatic malalignment. Multilevel degenerative facet arthropathy. Reversal of the normal lordotic curvature of the spine. Discs/spinal canal/neural foramina: Degenerative disc disease C5-6 and C6-7. Moderate right neura l foraminal narrowing C6-7. Soft tissues: Unremarkable. * A single impression for all exams can be found at the end of this report EXAM DESCRIPTION: CT Chest, Abdomen and Pelvis Without Intravenous Contrast CLINICAL HISTORY: The patient is 66 years old and is Female; fall TECHNIQUE: Axial computed tomography images of the chest, abdomen and pelvis without intravenous con trast. Sagittal and coronal reformatted images were created and reviewed. This CT exam was perfor med using one or more of the following dose reduction techniques: automated exposure control, adjus tment of the mA and/or kV according to patient size, and/or use of iterative reconstruction technique . COMPARISON: No relevant prior studies available. FINDINGS: CHEST: Lungs: No pulmonary consolidation or groundglass opacities to suggest pneumonia. Pleural space: No pleural effusion or pneumothorax. Heart: Mild cardiomegaly. No significant pericardial fluid. No significant coronary artery calcifications. Mediastinum: No pneumomediastinum. ABDOMEN: Liver: Unremarkable. Gallbladder and bile ducts: Cholecystectomy without biliary dilatation. Pancreas: Unremarkable. No ductal dilation. Spleen: Mild splenomegaly. No findings to suggest splenic injury. Adrenals: Unremarkable. No mass. Kidneys and ureters: Bilateral simple renal cysts, largest measuring 5.3 cm. No follow-up imaging recommended. No hydronephrosis or ureter stone. Stomach and bowel: No bowel dilatation or obstruction. No bowel wall thickening. PELVIS: Appendix: No findings to suggest acute appendicitis. Bladder: Unremarkable. No stones. Reproductive: Unremarkable as visualized. CHEST, ABDOMEN and PELVIS: Intraperitoneal space: Unremarkable. No significant fluid collection. No free air. Bones/joints: Bilateral reverse shoulder arthroplasty hardware. No dislocation. No acute rib fracture. Thoracolumbar scoliosis. Degenerative facet arthropathy lower lumbar spine. No acute fracture visualized. Soft tissues: Unremarkable. Vasculature: Unremarkable. No aortic aneurysm. Lymph nodes: Unremarkable. No enlarged lymph nodes. * A single impression for all exams can be found at the end of this report IMPRESSION: CT Head and Cervical Spine Without Intravenous Contrast: 1. No intracranial hemorrhage. No acute skull fracture. 2. Mild age related periventricular white matter microangiopathic changes. 3. No acute cervical spine fracture visualized. 4. 3 mm anterolisthesis C5 on C6, chronic. No traumatic malalignment. 5. Multilevel degenerative changes in the cervical spine. CT Chest, Abdomen and Pelvis Without Intravenous Contrast: 1. No acute intrathoracic or intra-abdominal injury identified. Study performed without IV contrast . 2. Mild splenomegaly. 3. Additional non-emergent findings as above. Electronically signed by: Leyda Velazquez MD 01/15/2022 4:53 AM CDT Due to temporary technical issues with the PACS/Fluency reporting system, reports are being signed by the in house radiologists without review as a courtesy to insure prompt reporting. The interpreting radiologist is fully responsible for the content of the report.
--- NOTE | 2022-01-16 14:43 | RAD REPORT ---
EXAM DESCRIPTION: RAD - Chest Single View - 01/15/2022 3:00 am CLINICAL HISTORY: 66 years Female, COUGH COMPARISON: Chest x-ray September 11, 2021 FINDINGS: No consolidation. No pneumothorax. No significant pleural effusion. Cardiac silhouette appears mildly enlarged. Bilateral shoulder arthroplasty changes are present. IMPRESSION: No acute findings. Electronically signed by: Mello Herzog MD 01/15/2022 3:12 AM CDT Due to temporary technical issues with the PACS/Fluency reporting system, reports are being signed by the in house radiologists without review as a courtesy to insure prompt reporting. The interpreting radiologist is fully responsible for the content of the report.
--- NOTE | 2022-01-16 15:21 | EKG ---
Test Date: 2022-01-15 Test Time: 02:50:10 Jigsawyer: ROBERT MEASUREMENT RESULTS: Intervals: Rate: 60 FL: 196 QRSD: 88 QT: 476 QTc: 476 [place]: P: 58 FL: 196 QRS: 7 T: -24 INTERPRETIVE STATEMENTS: Sinus rhythm with premature atrial complexes Moderate voltage criteria for LVH, may be normal variant Cannot rule out Septal infarct, age undetermined Abnormal ECG Compared to ECG 01/05/2022 21:05:36 Atrial premature complex(es) now present Myocardial infarct finding now present Sinus bradycardia no longer present Ventricular premature complex(es) no longer present Early repolarization no longer present Electronically Signed On 01-16-22 15:19:10 CDT by Mike Lund
== END 2022-01-15 05:22 | disposition home or self-care (01) ==
LOC: ER 02:39
DX: S09.90XA Unspecified injury of head, initial encounter (principal); N39.0 Urinary tract infection, site not specified; E87.6 Hypokalemia; I10 Essential (primary) hypertension; W18.30XA Fall on same level, unspecified, initial encounter; Z21 Asymptomatic human immunodeficiency virus [HIV] infection status; Z88.1 Allergy status to other antibiotic agents; Z88.2 Allergy status to sulfonamides; Z88.5 Allergy status to narcotic agent; Z88.8 Allergy status to other drugs, medicaments and biological substances
CPT/HCPCS: 36415; 70450; 71045; 71250; 72125; 80048; 80076; 81003; 83735; 83880; 84484; 85025; 85610; 87077; 87086; 87088; 87186; 93005; 96374; 96375; 99284

== ENCOUNTER 2022-01-16 15:36 | Emergency (ER) | payer OTHER ==
--- OUTSIDE RECORDS SUMMARY | 2022-01-16 15:49 | XMS REPORT | Continuity of Care Document ---
:1955 Author Organization [facility] t Address [address] [place] [address] Care Team Providers Name Role Phone Urmila Rahman Primary Care Physician Mike Lund Attending Clinician Unavailable ELAN LIRA Attending Clinician Unavailable SANTIAGO MAST Attending Clinician Unavailable Doctor Unassigned, Mendes Attending Clinician Unavailable Bill GUO Attending Clinician Unavailable Bill Rose Attending Clinician [facility] Attending Clinician Unavailable Santiago Sanchez Attending Clinician Beverly Layton MD Attending Clinician Eliseo Arce MD Attending Clinician Carol Ann FORK TRUCK DRIVER, Sarai Lieberman Attending Clinician [phone] Prabhu SANCHEZ, Ashly Attending Clinician Unavailable Robbi [...] Date Expiration Date S gabino [facility] [id number] 2012 STARPLUS OON 00:00:00 EXCEPT [facility] DUAL [id number] 2020 COMP HMO D SNP 00:00:00 MEDICAID OF [place] [id number] 2020 00:00:00 Problems Condition Condition Condition Status Onset Resolution Last Treating Co mments Source Name Details Category Date Date Treatment Clinician Date Gastropare Gastropare Disease Active Overview : Methodi sis sis 4-[address] 00:00: g of this [facility] 00 note l might be different from the original. Added automatic ally from request for surgery [id number] Dysphagia Dysphagia Disease Active Overview: Methodi 4-[address] 00:00: g of this [facility]osp[facility] 00 note l might be different from the original. 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 2020-10-15 Memoria PVI PVI 3-30 17:07:00 l ABLATION ABLATION 00:00: Patel n W/ CARTO / W/ CARTO / 00 GA / T GA / T Active 08/19/2020 [facility] Food Food Disease Active 2019-05 [...] [facility] hoxazole 1- Clear 00:00: Garcia 00 [facility] trimetho DA Active SV [facility] prim 1- Clear 00:00: Garcia [facility] codeine DA Active SV N/V [facility] - Clear 00:00: Garcia [facility] Metoclop Propensi Active [place] ramide ty [...] Date Stop Date Source Natural father Hy[facility]ension [facility] Natural [facility] Social History Social Habit Start Date Stop Date Quantity Comments Source History of tobacco Cigarette Smoker [facility] use Hospital History SDOH [facility] Alcohol Frequency Hospita l History SDOH [facility] Alcohol Std Drinks Hospit al History SDGA [facility] Alcohol Binge [facility] Exposure to 2021-12-02 2021-12-12 Not sure University of SARS-CoV-2 (event) 00:00:00 23:54:00 [facility] Alcohol intake 2020-12-08 2020-12-08 Current drinker Metho dist 00:00:00 00:00:00 of alcohol Hospital (finding) Cigarettes smoked 2020-09-05 2020-09-[address] current (pack per 00:00:00 00:00:00 Hospita l day) - Reported Cigarette 2020-09-05 2020-09-05 [facility] pack-years 00:00:00 00:00:00 Hospital Tobacco use and 2020-08-06 2020-08-06 Former smokeless Uni versity of exposure 00:00:00 00:00:00 tobacco user [facility] Alcohol Comment 2016-09-23 2016-09-23 rare [facility] 00:00:00 00:00:00 Hospital Tobacco Comment 2015-02-14 2015-02-14 Smokes approx 1-2 Un iversity of 00:00:00 00:00:00 cigarettes per [facility] day when she Branch smokes Sex Ass[birth year] At [birth year] [facility] 00:00:00 00:00:00 Smoking Status Start Date Stop Date Source Ex-smoker 2020-08-06 00:00:00 2020-08-06 00:00:00 [facility] Medications Ordered Filled Start Stop Current Ordering Indication Dosage Frequency Signature Comments Components Source Medication Medication Date Date Medication? Clinician (SIG) Name Name methocarbam 2021- No 500mg 500 mg, U nivers oL 12-13 Oral, ity of (ROBAXIN) 07:45: 06:35 [place]CE[place] 500 [place] :00 dose, On Medic al mg [facility] 12/13/21 at 0245, Routine ketorolac 2021- No 30mg 30 mg, Unive rs (TORADOL) 12-13 Intramuscu ity of injection 07:45: 06:34 [place], ONCE, [place] 30 mg 00 :00 1 dose, On Medical [place] 12/13/21 at 0245, JOE naproxen 2022-0 Yes [id number] 500mg Take 1 U nivers (NAPROSYN) 7-24 tablet by ity of 500 mg 00:00: mouth in [place] tablet 00 the Medical morning Branch and 1 tablet in the evening. Take with meals. methocarbam 2022-0 Yes [id number] 500mg Take 1 Univers oL 500 mg 7-24 tablet by ity o f tablet 00:00: mouth [address] [place] [address] ([facility]) Medical times [place] daily. naproxen 2022-0 Yes [id number] 500mg Take 1 U nivers (NAPROSYN) 7-24 tablet by ity of 500 mg 00:00: mouth in [place] tablet 00 the Medical morning Branch and 1 tablet in the evening. Take with meals. methocarbam 2022-0 Yes [id number] 500mg Take 1 Univers oL 500 mg 7-24 tablet by ity o f tablet 00:00: mouth 4 [place] [address] ([facility]) Medical times Branch daily. naproxen 2022-0 Yes [id number] 500mg Take 1 U nivers (NAPROSYN) 7-24 tablet by ity of 500 mg 00:00: mouth in [place] tablet 00 the Medical morning Branch and 1 tablet in the evening. Take with meals. methocarbam 2022-0 Yes [id number] 500mg Take 1 Univers oL 500 mg 7-24 tablet by ity o f tablet 00:00: mouth 4 [place] [address] ([facility]) Medical times [place] daily. hydralAZINE 2022-0 Yes 25mg Take 25 mg Univers (APRESOLINE 7-01 by mouth ity of ) 25 mg 08:47: daily. [place] [address] Medical Branch hydralAZINE 2022-0 Yes 25mg Take 25 mg Univers (APRESOLINE 7-01 by mouth ity of ) 25 mg 08:47: daily. [place] tablet Medical Branch hydralAZINE 2022-0 Yes 25mg Take 25 mg Univers (APRESOLINE 7-01 by mouth ity of ) 25 mg 08:47: daily. [address] Branch hydralAZINE 2022-0 Yes 25mg Take 25 mg Univers (APRESOLINE 7-01 by mouth ity of ) 25 mg 08:47: daily. [place] tablet 47 Medical Branch buPROPion 2021-0 Yes [id number] 150mg Take 1 U nivers XL 4-12 tablet by ity of (WELLBUTRIN 00:00: mouth [place] XL) 150 mg 00 daily. Medical 24 hr Branch tablet busPIRone 2021-0 Yes [id number] 30mg Take 1 Un matt 30 mg 4-12 tablet by ity of tablet 00:00: mouth 2 [place] 00 (two) Medical times Branch daily. SERTraline 2021-0 Yes [id number] 200mg Take 2 Univers 100 mg 4-12 tablets by ity of tablet 00:00: mouth [place] 00 daily. Medical Branch buPROPion 2021-0 Yes [id number] 150mg Take 1 U nivers XL 4-12 tablet by ity of (WELLBUTRIN 00:00: mouth [place] XL) 150 mg 00 daily. Medical 24 hr Branch tablet busPIRone 2021-0 Yes [id number] 30mg Take 1 Un matt 30 mg 4-12 tablet by ity of tablet 00:00: mouth 2 [place] 00 (two) Medical times Branch daily. SERTraline 2021-0 Yes [id number] 200mg Take 2 Univers 100 mg 4-12 tablets by ity of tablet 00:00: mouth [place] 00 daily. Medical Branch buPROPion 0 Yes [id number] 150mg Take 1 U nivers XL 4-12 tablet by ity of (WELLBUTRIN 00:00: mouth [place] XL) 150 mg 00 daily. Medical 24 hr Branch tablet busPIRone 2021-0 Yes [id number] 30mg Take 1 Un matt 30 mg 4-12 tablet by ity of tablet 00:00: mouth 2 [place] 00 (two) Medical times Branch daily. SERTraline 2021-0 Yes [id number] 200mg Take 2 Univers 100 mg 4-12 tablets by ity of tablet 00:00: mouth [place] 00 daily. Medical Branch buPROPion 2021-0 Yes [id number] 150mg Take 1 U nivers XL 4-12 tablet by ity of (WELLBUTRIN 00:00: mouth [place] XL) 150 mg 00 daily. Medical 24 hr Branch tablet busPIRone 2021-0 Yes [id number] 30mg Take 1 Un matt 30 mg 4-12 tablet by ity of tablet 00:00: mouth 2 [place] 00 (two) Medical times Branch daily. SERTraline 2021-0 Yes [id number] 200mg Take 2 Univers 100 mg 4-12 tablets by ity of tablet 00:00: mouth [place] 00 daily. Medical Branch raltegravir 0 Yes [id number] 400mg Take 1 Univers (ISENTRESS) 3-28 tablet by ity of 400 mg 00:00: mouth 2 [place] tablet 00 (two) Medical times Branch daily. raltegravir 2021-0 Yes [id number] 400mg Take 1 Univers (ISENTRESS) 3-28 tablet by ity of 400 mg 00:00: mouth 2 [place] tablet 00 (two) Medical times Branch daily. raltegravir 2021-0 Yes [id number] 400mg Take 1 Univers (ISENTRESS) 3-28 tablet by ity of 400 mg 00:00: mouth 2 [place] tablet 00 (two) Medical times Branch daily. raltegravir 0 Yes [id number] 400mg Take 1 Univers (ISENTRESS) 3-28 tablet by ity of 400 mg 00:00: mouth 2 [place] tablet 00 (two) Medical times Branch daily. raltegravir 0 Yes [id number] 400mg Take 1 Univers (ISENTRESS) 3-28 tablet by ity of 400 mg 00:00: mouth 2 [place] tablet 00 (two) Medical times Branch daily. LORazepam 1 0 Yes [id number] 1mg Take 1 Univers mg tablet 3-21 [...] a tablet day. buPROPion 2021-0 2021- No [id number] 150mg Take 1 Univers XL 1-24 04-12 tablet by ity of (WELLBUTRIN 00:00: 00:00 [place] XL) 150 mg 00 :00 daily. Medical 24 hr Branch tablet busPIRone 2021- No [id number] 30mg Take 1 U nivers 30 mg 06-1512 tablet by ity of tablet 00:00: 00:00 mouth 2 [place] 00 :00 (two) Medical times Branch daily. SERTraline 2021- No [id number] 200mg Take 2 Univers 100 mg 06-1512 tablets by ity of tablet 00:00: 00:00 mouth [place] 00 :00 daily. Medical Branch emtricitabi Yes [id number] Take one Univers ne-tenofovi 1-20 po daily ity of r alafen 00:00: [place] (DESCOVY) 00 Medical tablet Branch emtricitabi Yes [id number] Take one Univers ne-tenofovi 1-20 po daily ity of r alafen 00:00: [place] (DESCOVY) 00 Medical tablet Branch emtricitabi Yes [id number] Take one Univers ne-tenofovi 1-20 po daily ity of r alafen 00:00: [place] (DESCOVY) 00 Medical tablet Branch emtricitabi Yes [id number] Take one Univers ne-tenofovi 1-20 po daily ity of r alafen 00:00: [place] (DESCOVY) 00 Medical tablet Branch emtricitabi Yes [id number] Take one Univers ne-tenofovi 1-20 po daily ity of r alafen 00:00: [place] (DESCOVY) 00 Medical tablet Branch metoprolol Yes [id number] Take 1 [facility] tartrate 7-26 tablet Health (Lopressor) 00:00: (100 mg 100 MG 00 total) by tablet mouth 2 (two) times a day AND 0.5 tablets (50 mg total) every night. metoprolol Yes [id number] Take 1 [place] tartrate 7-26 tablet Health [...] (affected area in groin) hydrALAZINE Yes 50mg Q.[id number] Take 50 mg [facility] (APRESOLINE 7-19 [id number] mouth [address] ) 50 MG [...] area in groin) hydrALAZINE 0 Yes 50mg Q.[id number] Take 50 mg [facility] (APRESOLINE 7-[id number] mouth [address] ) 50 MG [...] mouth Hospita tablet 25 daily. l esomeprazol 0 Yes 20mg QD Take 20 mg Methodi [...] (affected area in groin) hydrALAZINE Yes 50mg Q.[id number] Take 50 mg [facility]i (APRESOLINE 7-[id number] mouth [address] ) 50 MG [...] mouth Hospita tablet 25 daily. l esomeprazol 0 Yes 20mg QD Take 20 mg Methodi e (NexIUM) 7-[address] 20 MG 10:51: daily Hospita capsule 25 before l breakfast. amIODarone 0 Yes 200mg QD Take 200 Me thodi (PACERONE) 7-[address] 200 MG 10:51: mouth Hospita tablet 25 daily. l nystatin-tr 2020-[id number] Apply to [facility] iamcinolone 7-06 area(s) 3 ity of cream 00:00: (three) [place] 00 times Medical daily. Branch nystatin-tr 2020-[id number] Apply to [facility] iamcinolone 7-06 area(s) 3 ity of cream 00:00: (three) [place] 00 times Medical daily. Branch nystatin-tr 2020-[id number] Apply to [facility] iamcinolone 7-06 area(s) 3 ity of cream 00:00: (three) [place] 00 times Medical daily. Branch nystatin-tr 2020-[id number] Apply to [facility] iamcinolone 7-06 area(s) 3 ity of cream 00:00: (three) [place] 00 times Medical daily. Branch nystatin-tr 2020-[id number] Apply to [facility] iamcinolone 7-06 area(s) 3 ity of cream 00:00: (three) [place] 00 times Medical daily. Branch budesonide- 2020-0 2020- No 1{puff} QD Inhale 1 Methodi formoteroL 6-25 06-[address] (SYMBICORT) 14:37: 00:00 morning. H ospita 160-4.5 02 :00 l mcg/actuati on inhaler hydrALAZINE Yes [id number] 50mg Q.[id number] Take 1 [facility] (Apresoline 6-11 [id number] tablet (50 Health ) 50 MG 00:00: 3D mg total) tablet 00 by mouth 3 (three) times a day. hydrALAZINE Yes [id number] 50mg Q.[id number] Take 1 [place] (Apresoline 6-11 [id number] tablet (50 Health ) 50 MG 00:00: [...] % 00:00: ointment 00 nystatin 2020- No [id number] Q.25D Take 5 mL Methodi (MYCOSTATIN 10-06 [...] ia 4-10 (Same as: l 14:00: Norvasc) [place] 00 emtricitabi No Notes: Caesar lisa ne 200 MG / 4-10 (Same as: l tenofovir 14:00: Descovy) Herm ariel alafenamide 00 Non-formul 25 MG Oral nancy Tablet [Descovy] pantoprazol No Notes: [place] lisa e 4-10 Tablet l 14:00: should not [place] 00 be chewed or crushed. (Same as: Protonix) Amiodarone No Notes: Memor ia 4-10 (Same as: l 14:00: Cordarone) [place] Amlodipine No Notes: Memor ia 4-10 (Same as: l 14:00: Norvasc) [place] emtricitabi No Notes: Caesar lisa ne 200 [...] e 4-10 Tablet l 14:00: should not [place] 00 be chewed or crushed. (Same as: Protonix) Amiodarone No Notes: Memor ia 4-10 (Same as: l 14:00: Cordarone) [place] 00 Amlodipine No Notes: Memor ia 4-10 (Same as: l 14:00: Norvasc) [place] emtricitabi No Notes: Caesar lisa ne 200 MG / 4-10 (Same as: l tenofovir 14:00: Descovy) Herm ariel alafenamide 00 Non-formul 25 MG Oral nanyc Tablet [Descovy] Sertraline No Notes: Memor ia 4-10 (Same as: l 14:00: Zoloft) [place] 00 pantoprazol No Notes: Caesar lisa e 4-10 Tablet l 14:00: should not [place] 00 be chewed or crushed. (Same as: [...] e 4-10 Tablet l 14:00: should not [place] 00 be chewed or crushed. (Same as: Protonix) Amiodarone No Notes: Memor ia 4-10 (Same as: l 14:00: Cordarone) [place] Amlodipine No Notes: Memor ia 4-10 (Same as: l 14:00: Norvasc) [place] emtricitabi No Notes: Caesar lisa ne 200 MG / 4-10 (Same as: l tenofovir 14:00: [place]covy) Herm ariel alafenamide 00 Non-formul 25 MG Oral nancy Tablet [Descovy] Sertraline No Notes: Memor ia 4-10 (Same as: l 14:00: Zoloft) [place] 00 pantoprazol No Notes: Caesar lisa e 4-10 Tablet l 14:00: should not [place] 00 be chewed or crushed. (Same as: Protonix) Amiodarone No Notes: Memor ia 4-10 (Same as: l 14:00: Cordarone) [place] Amlodipine No Notes: Memor ia 4-10 (Same as: l 14:00: Norvasc) [place] 00 emtricitabi No Notes: Caesar lisa ne 200 MG / 4-10 (Same as: l tenofovir 14:00: Descovy) Herm ariel alafenamide 00 Non-formul 25 MG Oral nancy Tablet [Descovy] Sertraline No Notes: Memor ia 4-10 (Same as: l 14:00: Zoloft) [place] 00 pantoprazol No Notes: [place] lisa e 4-10 Tablet l 14:00: should not [place] 00 be chewed or crushed. (Same as: Protonix) Amiodarone No Notes: Memor ia 4-10 (Same as: l 14:00: Cordarone) [place] Amlodipine No Notes: Memor ia 4-10 (Same [...] M emoria 4-10 interfere l 02:00: w/enteral [place] feeds - Take 1 hr before or [...] Memoria 4-10 Same as: l 02:00: Eliquis [place] 00 Hydralazine No Notes: Caesar lisa Hydrochlori [...] M emoria 4-10 interfere l 02:00: w/enteral [place] 00 feeds - Take 1 hr before [...] M emoria 4-10 interfere l 02:00: w/enteral [place] 00 feeds - Take 1 hr before or 2 hr after antacids, dairy pdt, meals & minerals - On empty stomach. For patients unable to swallow tablet, dissolve in 10mL - 30mL of water or juice and stir before giving. (Same As: Carafate) Saline No Notes: Memoria Flush 0.9% 4-10 (Same as: l 02:00: BD [place] Posiflush) Eliquis No Notes: Memoria 4-10 Same as: l 02:00: Eliquis [place] Hydralazine No Notes: Caesar lisa Hydrochlori 4-10 [...] 0.9% 4-10 (Same as: l 02:00: BD [place] 00 Posiflush) Eliquis No Notes: Memoria 4-10 [...] M emoria 4-10 interfere l 02:00: w/enteral [place] 00 feeds - Take 1 hr before [...] as: Tylenol with Codeine # 3) Buspirone 2021-0 No Notes: Memori a 08-29 (Same As: l 22:00: BuSpar) Lisinopril 2020-0 No 40 mg, 1 Mem oria - tab, l 22:00: Route: PO, [place] 00 Drug form: TAB, BID, Dosing Weight 97.273, kg, Start date: 08/29/20 17:00:00 CDT, Duration: 30 day, Stop date: 09/28/20 9:00:00 CDT metoprolol 2020-0 No 100 mg, 1 Me moria tartrate -09 tab, l 22:00: Route: PO, [place] 00 Drug form: TAB, BID, Dosing Weight [...] tartrate 4-09 tab, l 22:00: Route: PO, [place] 00 Drug form: TAB, BID, Dosing Weight 97.273, kg, Start date: 08/29/20 17:00:00 CDT, Duration: 30 day, Stop date: 09/28/20 9:00:00 CDT Buspirone 2021-0 No Notes: Memori a - [...] tartrate 4-09 tab, l 22:00: Route: PO, [place] Drug form: TAB, BID, Dosing Weight 97.273, [...] 0 Buspirone 1-0 No Notes: Memori a 4- (Same As: [...] tab, l Tablet 22:00: Route: PO, [place] [[facility]] Drug form: TAB, BID, Dosing Weight [...] Notes: Memoria 4-09 (Same l 17:07: as:MORPhin [place] 00 e Sulfate) Morphine No Notes: Memoria 4-09 (Same l 17:07: as:MORPhin [place] 00 e Sulfate) Morphine No Notes: Memoria 4-09 (Same l 17:07: as:MORPhin [place] 00 e Sulfate) Morphine No Notes: Memoria 4-09 (Same l 17:07: as:MORPhin [place] 00 e Sulfate) Morphine No Notes: Memoria 4-09 (Same l 17:07: as:MORPhin [place] 00 e Sulfate) Morphine No Notes: Memoria 4-09 (Same l 17:07: as:MORPhin [place] 00 e Sulfate) Morphine No Notes: Memoria [...] 08-29 Drug form: l 15:40: INJ, ONCE, [place] 00 Stop date: 08/29/20 10:40:00 CDT neostigmine 2020-0 [...] = 1 M emoria e 40 mg 4- tab, PO, l oral 15:27: Daily, # [place] enteric 00 30 tab, 0 coated Refill(s), tablet Pharmacy: [facility] 149, 162.56, cm, 08/29/20 5:30:00 CDT, Height, 97.273, kg, 08/29/20 5:30:00 CDT, Weight pantoprazol 2020-0 Yes 40 mg = 1 M emoria e 40 mg 4-09 tab, PO, l oral 15:27: Daily, # [place] enteric 00 30 tab, 0 coated Refill(s), tablet [facility]: [facility] 149, 162.56, cm, 08/29/20 5:30:00 CDT, Height, 97.273, kg, 08/29/20 5:30:00 CDT, Weight pantoprazol 2021-0 Yes 40 mg = 1 M emoria e 40 mg 4-09 tab, PO, l oral 15:27: Daily, # [place] enteric 00 30 tab, 0 coated Refill(s), tablet [facility]: [facility] 149, 162.56, cm, 08/29/20 5:30:00 CDT, Height, 97.273, kg, 08/29/20 5:30:00 CDT, Weight pantoprazol 2021-0 Yes 40 mg = 1 M emoria e 40 mg 4-09 tab, PO, l oral 15:27: Daily, # [place] enteric 00 30 tab, 0 coated Refill(s), tablet Pharm[facility]: [facility] [place], 162.56, cm, 08/29/20 5:30:00 CDT, Height, 97.273, kg, 08/29/20 5:30:00 CDT, Weight pantoprazol 2021-0 Yes 40 mg = 1 M emoria e 40 mg 4-09 tab, PO, l oral 15:27: Daily, # [place] enteric 00 30 tab, 0 coated Refill(s), [...] tab, PO, l oral 15:27: Daily, # [place] enteric 00 30 tab, 0 coated Refill(s), tablet Pharmacy: [facility] 149, 162.56, cm, 08/29/20 5:30:00 CDT, Height, 97.273, kg, 08/29/20 5:30:00 CDT, Weight pantoprazol 2020-0 No 40 mg = 1 M emoria e 40 mg 4-09 tab, PO, l oral 15:26: Daily, # [place] enteric 00 30 tab, 0 coated Refill(s) tablet sucralfate 2020-0 Yes 1 gm = 1 Mem oria 1 g oral 4-09 tab, PO, l tablet 15:26: Q12H, # 28 [place] nn 00 tab, 0 Refill(s), Pharmacy: [place] [address], 162.56, cm, 08/29/20 5:30:00 CDT, Height, 97.273, kg, 08/29/20 5:30:00 CDT, Weight pantoprazol 2020-0 No 40 mg = 1 M emoria e 40 mg 4-09 tab, PO, l oral 15:26: Daily, # [place] enteric 00 30 tab, 0 coated Refill(s) tablet sucralfate 2020-0 Yes 1 gm = 1 Mem oria 1 g oral 4-09 tab, PO, l tablet 15:26: Q12H, # 28 [place] nn 00 tab, 0 Refill(s), Pharmacy: [place] [address], 162.56, cm, 08/29/20 5:30:00 CDT, Height, 97.273, kg, 08/29/20 5:30:00 CDT, Weight pantoprazol 2020-0 No 40 mg = 1 M emoria e 40 mg 4-09 tab, PO, l oral 15:26: Daily, # [place] enteric 00 30 tab, 0 coated Refill(s) tablet sucralfate 2020-0 Yes 1 gm = 1 Mem oria 1 g oral 4-09 tab, PO, l tablet 15:26: Q12H, # 28 [place] nn 00 tab, 0 Refill(s), Pharmacy: [facility] 149, 162.56, cm, 08/29/20 5:30:00 CDT, Height, 97.273, kg, 08/29/20 5:30:00 CDT, Weight pantoprazol 2020-0 No 40 mg = 1 M emoria e 40 mg 4-09 tab, PO, l oral 15:26: Daily, # [place] enteric 00 30 tab, 0 coated Refill(s) tablet sucralfate 2020-0 Yes 1 gm = 1 Mem oria 1 g oral 4-09 tab, PO, l tablet 15:26: Q12H, # 28 [place] nn 00 tab, 0 Refill(s), Pharmacy: [facility] 149, 162.56, cm, 08/29/20 5:30:00 CDT, Height, 97.273, kg, 08/29/20 5:30:00 CDT, Weight pantoprazol 2020-0 No 40 mg = 1 M emoria e 40 mg 4-09 tab, PO, l oral 15:26: Daily, # [place] enteric 00 30 tab, 0 coated Refill(s) tablet sucralfate 2020-0 Yes 1 gm = 1 Mem oria 1 g oral 4-09 tab, PO, l tablet 15:26: Q12H, # 28 [place] nn 00 tab, 0 Refill(s), Pharmacy: [facility] 149, 162.56, cm, 08/29/20 5:30:00 CDT, Height, [...] [place] nn 00 tab, 0 Refill(s), Pharmacy: [facility] 149, 162.56, cm, 08/29/20 5:30:00 CDT, Height, 97.273, kg, 08/29/20 5:30:00 CDT, Weight pantoprazol 2020-0 No 40 mg = 1 M emoria e 40 mg 4-09 tab, PO, l oral 15:26: Daily, # [place] enteric 00 30 tab, 0 coated Refill(s) tablet sucralfate Yes 1 gm = 1 Mem oria 1 g oral 4-09 tab, PO, l tablet 15:26: Q12H, # 28 [place] nn 00 tab, 0 Refill(s), Pharmacy: [facility] 149, 162.56, cm, 08/29/20 5:30:00 CDT, Height, [...] 0.9% 4-09 (Same as: l 15:25: BD [place] 00 Posiflush) Lorazepam No Notes: Memori a 4-09 (Same as: l 15:25: Ativan) [place] Saline No Notes: Memoria Flush 0.9% 4-09 [...] 08-29 Drug form: l 14:18: INJ, ONCE, [place] 00 Stop date: 08/29/20 9:18:00 CDT heparin 202-0 No Route: IV, Caesar lisa (ANES) 08-29 Drug form: l 14:18: INJ, ONCE, Stop date: 08/29/20 9:18:00 CDT heparin 202-0 No Route: IV, [place] lisa (ANES) 08-29 Drug form: l 14:18: INJ, ONCE, [place] 00 Stop date: 08/29/20 9:18:00 CDT heparin 2020-0 No Route: IV, Caesar lisa (ANES) 08-29 Drug form: l 14:18: INJ, ONCE, [place] 00 Stop date: 08/29/20 9:18:00 CDT heparin 2020-0 No Route: IV, Caesar lisa (ANES) 08-29 Drug form: l 14:18: INJ, ONCE, Stop date: 08/29/20 9:18:00 CDT heparin 2020-0 No Route: IV, Caesar lisa (ANES) 08-29 Drug form: l 14:18: INJ, ONCE, Stop date: 08/29/20 9:18:00 CDT Labetalol 2020-0 No 10 mg, Memori a 08-29 Route: l 14:01: IVP, [place] 00 Q5Min, Dosing Weight 97.273, kg, PRN Elevated BP, Start date: 08/29/20 9:01:00 CDT, Duration: 5 doses or times, Stop date: Limited # of times Acetaminoph 2020-0 No 1,000 mg, M emoria en 08-29 Route: PO, l 14:01: Drug form: [place] 00 TAB, ONCE, Dosing Weight 97.273, kg, [...] oria ne 08-29 Route: l 14:01: IVP, [place] 00 Q5Min, Dosing Weight 97.273, kg, PRN Pain Score 7-10, Start date: 08/29/20 9:01:00 CDT, Duration: 4 doses or times, Stop date: Limited # of times Flumazenil 1-0 No 0.2 mg, Caesar lisa 08-29 Route: l 14:01: IVP, PRN, [place] 00 Dosing Weight 97.273, kg, PRN Benzodiaze [...] ia 08-29 Route: l 14:01: IVP, ONCE, [place] 00 Dosing Weight 97.273, kg, PRN Nausea & Vomiting, Start date: 08/29/20 9:01:00 CDT Labetalol 1-0 No 10 mg, Memori a 08-29 Route: l 14:01: IVP, [place] 00 Q5Min, Dosing Weight 97.273, kg, PRN Elevated BP, Start date: 08/29/20 9:01:00 CDT, Duration: 5 doses or times, Stop date: Limited # of times Acetaminoph 1-0 No 1,000 mg, M emoria en 08-29 Route: PO, l 14:01: Drug form: [place] 00 TAB, ONCE, Dosing Weight 97.273, kg, [...] 2021-0 No 0.5 mg, Mem oria ne 4-09 Route: l 14:01: IVP, [place] 00 Q5Min, Dosing Weight 97.273, kg, PRN Pain Score 7-10, Start date: 08/29/20 9:01:00 CDT, Duration: 4 doses or times, Stop date: Limited # of times Flumazenil 2020-0 No 0.2 mg, Caesar lisa 08-29 Route: l 14:01: IVP, PRN, [place] 00 Dosing Weight 97.273, kg, PRN Benzodiaze [...] ia 08-29 Route: l 14:01: IVP, ONCE, [place] 00 Dosing Weight 97.273, kg, PRN Nausea & Vomiting, Start date: 08/29/20 9:01:00 CDT Labetalol 2020-0 No 10 mg, Memori a 08-29 Route: l 14:01: IVP, [place] 00 Q5Min, Dosing Weight 97.273, kg, PRN Elevated BP, Start date: 08/29/20 9:01:00 CDT, Duration: 5 doses or times, Stop date: Limited # of times Acetaminoph 2020-0 No 1,000 mg, M emoria en 08-29 Route: PO, l 14:01: Drug form: [place] 00 TAB, ONCE, Dosing Weight 97.273, kg, [...] oria ne 08-29 Route: l 14:01: IVP, [place] 00 Q5Min, Dosing Weight 97.273, kg, PRN [...] Memori a 08-29 Route: l 14:01: IVP, [place] 00 Q2MIN, Dosing Weight 97.273, kg, PRN [...] Memori a 08-29 Route: l 14:01: IVP, [place] 00 Q5Min, Dosing Weight 97.273, kg, PRN [...] oria ne 08-29 Route: l 14:01: IVP, [place] 00 Q5Min, Dosing Weight 97.273, kg, PRN Pain Score 7-10, Start date: 08/29/20 9:01:00 CDT, Duration: 4 doses or times, Stop date: Limited # of times Labetalol 2021-0 No 10 mg, Memori a 08-29 Route: l 14:01: IVP, [place] 00 Q5Min, Dosing Weight 97.273, kg, PRN [...] oria ne 08-29 Route: l 14:01: IVP, [place] 00 Q5Min, Dosing Weight 97.273, kg, PRN Pain Score 7-10, Start date: 08/29/20 9:01:00 CDT, Duration: 4 doses or times, Stop date: Limited # of times Flumazenil 2021-0 No 0.2 mg, Caesar lisa 08-29 Route: l 14:01: IVP, PRN, [place] 00 Dosing Weight 97.273, kg, PRN Benzodiaze pine Reversal, Initial dose, Start date: 08/29/20 9:01:00 CDT, Duration: 30 day, Stop date: 09/28/20 9:00:00 CDT Naloxone 2021-0 No 0.4 mg, Memori a 08-29 Route: l 14:01: IVP, [place] 00 Q2MIN, Dosing Weight 97.273, kg, PRN Narcotic Reversal, Start date: 08/29/20 9:01:00 CDT, Duration: 8 doses or times, Stop date: Limited # of times Flumazenil 2021-0 No 0.2 mg, Caesar lisa 08-29 Route: l 14:01: IVP, PRN, [place] 00 Dosing Weight 97.273, kg, PRN Benzodiaze pine Reversal, Initial dose, Start date: 08/29/20 9:01:00 CDT, Duration: 30 day, Stop date: 09/28/20 9:00:00 CDT Ondansetron 2021-0 No 4 mg, Memor ia 08-29 Route: l 14:01: IVP, ONCE, [place] 00 Dosing Weight 97.273, kg, PRN Nausea & Vomiting, Start date: 08/29/20 9:01:00 CDT Naloxone 2021-0 No 0.4 mg, Memori a 08-29 Route: l 14:01: IVP, [place] 00 Q2MIN, Dosing Weight 97.273, kg, PRN Narcotic Reversal, Start date: 08/29/20 9:01:00 CDT, Duration: 8 doses or times, Stop date: Limited # of times Ondansetron 2021-0 No 4 mg, Memor ia 08-29 Route: l 14:01: IVP, ONCE, [place] 00 Dosing Weight 97.273, kg, PRN Nausea [...] oria ne 08-29 Route: l 14:01: IVP, [place] 00 Q5Min, Dosing Weight 97.273, kg, PRN [...] Memori a 08-29 Route: l 14:01: IVP, [place] 00 Q2MIN, Dosing Weight 97.273, kg, PRN Narcotic Reversal, Start date: 08/29/20 9:01:00 CDT, Duration: 8 doses or times, Stop date: Limited # of times Ondansetron 1-0 No 4 mg, Memor ia 08-29 Route: l 14:01: IVP, ONCE, [place] 00 Dosing Weight 97.273, kg, PRN Nausea & Vomiting, Start date: 08/29/20 9:01:00 CDT Labetalol 1-0 No 10 mg, Memori a 08-29 Route: l 14:01: IVP, [place] 00 Q5Min, Dosing Weight 97.273, kg, PRN Elevated BP, Start date: 08/29/20 9:01:00 CDT, Duration: 5 doses or times, Stop date: Limited # of times Acetaminoph 2021-0 No 1,000 mg, M emoria en 08-29 Route: PO, l 14:01: Drug form: [place] 00 TAB, ONCE, Dosing Weight 97.273, kg, [...] oria ne 08-29 Route: l 14:01: IVP, [place] 00 Q5Min, Dosing Weight 97.273, kg, PRN [...] Memori a 08-29 Route: l 14:01: IVP, [place] 00 Q2MIN, Dosing Weight 97.273, kg, PRN [...] Drug form: l 10 13:15: INJ, Start [place] microgram date: 08/29/20 8:15:00 CDT, Stop date: 08/29/20 9:15:00 CDT norepinephr 2020-0 No Route: IV, Memoria ine (ANES) 08-29 Drug form: l 10 13:15: INJ, Start [place] microgram 00 date: 08/29/20 8:15:00 CDT, Stop date: 08/29/20 9:15:00 CDT norepinephr 2020-0 No Route: IV, Memoria ine (ANES) 08-29 Drug form: l 10 13:15: INJ, Start [place] microgram 00 date: 08/29/20 8:15:00 CDT, Stop date: 08/29/20 9:15:00 CDT norepinephr 2020-0 No Route: IV, Memoria ine (ANES) 08-29 Drug form: l 10 13:15: INJ, Start [place] microgram date: 08/29/20 8:15:00 CDT, Stop date: 08/29/20 9:15:00 CDT norepinephr 2020-0 No Route: IV, Memoria ine (ANES) 08-29 Drug form: l 10 13:15: INJ, Start [place] microgram date: 08/29/20 8:15:00 CDT, Stop date: 08/29/20 9:15:00 CDT norepinephr 2020-0 No Route: IV, Memoria ine (ANES) 08-29 Drug form: l 10 13:15: INJ, Start [place] microgram 00 date: 08/29/20 8:15:00 CDT, Stop date: 08/29/20 9:15:00 CDT Sodium 2020-0 No Route: IV, Memor ia Chloride -09 Total l 0.9% IV 12:30: Volume: Marty [...] 4-09 Total l 0.9% IV 12:30: Volume: [place] (ANES) 1000 00 1,000, mL Start date: [...] PO, l Hydrochlori 11:42: Q24H, # 30 [place] de 150 MG 00 tab, 0 Extended Refill(s) Release Tablet 24 HR Yes 150 mg = 1 Memori a Bupropion 4-09 tab, PO, l Hydrochlori 11:42: Q24H, # 30 [place] de 150 MG 00 tab, 0 Extended Refill(s) Release Tablet 24 HR Yes 150 mg = 1 Memori a Bupropion 4-09 tab, PO, l Hydrochlori 11:42: Q24H, # 30 [place] de 150 MG 00 tab, 0 Extended Refill(s) Release Tablet 24 HR Yes 150 mg = 1 Memori a Bupropion 4-09 tab, PO, l Hydrochlori 11:42: Q24H, # 30 [place] de 150 MG 00 tab, 0 Extended Refill(s) Release Tablet 24 HR Yes 150 mg = 1 Memori a Bupropion 4-09 tab, PO, l Hydrochlori 11:42: Q24H, # 30 [place] de 150 MG 00 tab, 0 Extended [...] 4- Q12H, tab, l Tablet 11:41: 0 [place] [Eliquis] 00 Refill(s), For Atrial Fibrilatio n [...] 4- Q12H, tab, l Tablet 11:41: 0 [place] [Eliquis] 00 Refill(s), For Atrial Fibrilatio n apixaban 5 2020-0 Yes 5 mg, PO, Me moria MG Oral 4- Q12H, tab, l Tablet 11:41: 0 [place] [Eliquis] 00 Refill(s), For Atrial Fibrilatio n apixaban 2020-0 Yes 5 mg, PO, Me moria MG Oral 4- Q12H, tab, l Tablet 11:41: 0 [place] [Eliquis] 00 Refill(s), For Atrial Fibrilatio n apixaban 2020-0 Yes 5 mg, PO, Me moria MG Oral 4-09 Q12H, tab, l Tablet 11:41: 0 [place] [Eliquis] 00 Refill(s), For Atrial Fibrilatio n AMIODarone Yes 200 mg = 1 M emoria 200 mg oral 4-09 tab, PO, l tablet 11:38: Daily, # [place] 00 90 tab, 3 Refill(s) AMIODarone 2020-0 Yes 200 mg = 1 M emoria 200 mg oral 4-09 tab, PO, l tablet 11:38: Daily, # [place] 00 90 tab, 3 Refill(s) AMIODarone 2020-0 [...] tab, PO, l tablet 11:38: Daily, # [place] 00 90 tab, 3 Refill(s) AMIODarone 2020-0 Yes 200 mg = 1 M emoria 200 mg oral 4-09 tab, PO, l tablet 11:38: Daily, # [place] 00 90 tab, 3 Refill(s) AMIODarone 2020-0 Yes 200 mg = 1 M emoria 200 mg oral 4-09 tab, PO, l tablet 11:38: Daily, # [place] 00 90 tab, 3 Refill(s) normal 0 [...] by ity of tablet 08:18: mouth [place] 30 daily. [facility] predniSONE Yes [place] [...] 2019- Yes 1{each} 1 each. [place] -hydroCHLOR - [...] 00:00: [facility] 00 daily. l DESCOVY 2017 Yes 1{tbl} QD Take 1 Method i 200-25 mg 3-[address] tablet 00:00: mouth [facility] 00 daily. l ISENTRESS Yes 400mg Q.5D Take 400 Met [facility] 400 mg 3-[address] tablet 00:00: mouth 2 [facility] 00 (two) l times a day. ISENTRESS 2017- Yes 400mg Q.5D Take 400 Met [facility] 400 mg 3-[address] tablet 00:00: mouth [facility] 00 (two) l times a day. ISENTRESS 2017- Yes 400mg Q.5D Take 400 Met [facility] 400 mg 3-[address] tablet 00:00: mouth [facility] 00 (two) l times a day. Immunizations Ordered Filled Immunization Date Status Comments [facility] e Immunization Name Name PEG COVID-19 2020-07-23 Completed [facility] VACCINATION 00:00:00 [facility] PFIZER COVID-19 2020-07-23 Completed [facility] VACCINATION 00:00:00 [facility] PFIZER COVID-19 2020-07-23 Completed [facility] VACCINATION 00:00:00 [facility] PEG COVID-19 2020-07-02 Completed [facility] VACCINATION 00:00:00 [facility] PFIZER COVID-19 2020-07-02 Completed [facility] VACCINATION 00:00:00 [facility] PEG COVID-19 2020-07-02 Completed [facility] VACCINATION 00:00:00 [facility] Influenza Virus 2017-03-08 Completed [facility] Vaccine 00:00:00 [facility] Influenza Virus 2017-03-08 Completed Universit [facility] of Vaccine 00:00:00 [facility] Influenza Virus 2017-03-08 Completed Universit y of Vaccine 00:00:00 [facility] Influenza Virus 2017-03-08 Completed Universit y of Vaccine 00:00:00 [facility] Influenza Virus 2017-03-08 Completed Universit y of Vaccine 00:00:00 [facility] Influenza Virus 2014-01-30 Completed Universit y of Vaccine (3+ yrs) 00:00:00 [facility] [place] dical Branch Pneumococcal 13 2014-01-30 Completed Universit y of Conjugate, PCV13 00:00:00 [facility] dical (Prevnar 13) Branch Influenza Virus 2014-01-30 Completed Universit y of Vaccine (3+ yrs) 00:00:00 [facility] dical Branch Pneumococcal 13 2014-01-30 Completed Universit y of Conjugate, PCV13 00:00:00 [facility] dical (Prevnar 13) [place] Influenza Virus 2014-01-30 Completed Universit y of Vaccine (3+ yrs) 00:00:00 [place] [facility] Pneumococcal 13 2014-01-30 Completed Universit y of Conjugate, PCV13 00:00:00 [facility] dical (Prevnar 13) Branch Influenza Virus 2014-01-30 Completed Universit y of Vaccine (3+ yrs) 00:00:00 [place] [facility] dical [facility] Pneumococcal 13 2014-01-30 Completed Universit y of Conjugate, PCV13 00:00:00 [facility] dical (Prevnar 13) Branch Influenza Virus 2014-01-30 Completed Universit y of Vaccine (3+ yrs) 00:00:00 [facility] dical Branch Pneumococcal 13 2014-01-30 Completed Universit y of Conjugate, PCV13 00:00:00 [facility] dical (Prevnar 13) Branch Pneumococcal 2012-02-16 Completed University o f Polysaccharide, 00:00:00 [place] [facility] ical PPSV23 (PNEUMOVAX) Branch Influenza Virus 2012-02-16 Completed Universit y of Vaccine 00:00:00 [facility] PPD (TB) 2012-02-16 Completed University of 00:00:00 [facility] Pneumococcal 2012-02-16 Completed University o f Polysaccharide, 00:00:00 [place] [facility] ical PPSV23 (PNEUMOVAX) Branch Influenza Virus 2012-02-16 Completed Universit y of Vaccine 00:00:00 [facility] PPD (TB) 2012-02-16 Completed University of 00:00:00 [facility] Pneumococcal 2012-02-16 Completed University o f Polysaccharide, 00:00:00 [place] [facility] ical PPSV23 (PNEUMOVAX) Branch Influenza Virus 2012-02-16 Completed Universit y of Vaccine 00:00:00 [facility] PPD (TB) 2012-02-16 Completed University of 00:00:00 [facility] Pneumococcal 2012-02-16 Completed University o f Polysaccharide, 00:00:00 [place] [facility] ical PPSV23 (PNEUMOVAX) Branch Influenza Virus 2012-02-16 Completed Universit y of Vaccine 00:00:00 [facility] PPD (TB) 2012-02-16 Completed University of 00:00:00 [facility] Pneumococcal 2012-02-16 Completed University o f Polysaccharide, 00:00:00 [place] [facility] ical PPSV23 (PNEUMOVAX) Branch Influenza Virus 2012-02-16 Completed Universit y of Vaccine 00:00:00 [facility] PPD (TB) 2012-02-16 Completed University of 00:00:00 [place] [facility] Hep B, Adol or Pedi 2011-09-01 Completed Unive rsity of Dosage 00:00:00 [place] [facility] Hep B, Adol or Pedi 2011-09-01 Completed Unive rsity of Dosage 00:00:00 [place] [facility] Hep B, Adol or Pedi 2011-09-01 Completed Unive rsity of Dosage 00:00:00 [place] [facility] Hep B, Adol or Pedi 2011-09-01 Completed Unive rsity of Dosage 00:00:00 [place] [facility] Hep B, Adol or Pedi 2011-09-01 Completed Unive rsity of Dosage 00:00:00 [place] [facility] Hep B, Adol or Pedi 2011-03-17 Completed Unive rsity of Dosage 00:00:00 [place] [facility] Hep B, Adol or Pedi 2011-03-17 Completed Unive rsity of Dosage 00:00:00 [facility] Hep B, Adol or Pedi 2011-03-17 Completed Unive rsity of Dosage 00:00:00 [place] [facility] Hep B, Adol or Pedi 2011-03-17 Completed Unive rsity of Dosage 00:00:00 [facility] Hep B, Adol or Pedi 2011-03-17 Completed Unive rsity of Dosage 00:00:00 [facility] Influenza Virus 2011-02-10 Completed Universit y of Vaccine 00:00:00 [facility] Hep B, Adol or Pedi 2011-02-10 Completed Unive rsity of Dosage 00:00:00 [facility] Influenza Virus 2011-02-10 Completed Universit y of Vaccine 00:00:00 [facility] Hep B, Adol or Pedi 2011-02-10 Completed Unive rsity of Dosage 00:00:00 [facility] Influenza Virus 2011-02-10 Completed Universit y of Vaccine 00:00:00 [facility] Hep B, Adol or Pedi 2011-02-10 Completed Unive rsity of Dosage 00:00:00 [facility] Influenza Virus 2011-02-10 Completed Universit y of Vaccine 00:00:00 [facility] Hep B, Adol or Pedi 2011-02-10 Completed Unive rsity of Dosage 00:00:00 [facility] Influenza Virus 2011-02-10 Completed Universit y of Vaccine 00:00:00 [place] [facility] Hep B, Adol or Pedi 2011-02-10 Completed Unive rsity of Dosage 00:00:00 [facility] PPD (TB) 2010-11-18 Completed University of 00:00:00 [facility] TDAP (ADACEL) 2010-11-18 Completed University of VACCINE 00:00:00 [facility] PPD (TB) 2010-11-18 Completed University of 00:00:00 [facility] TDAP (ADACEL) 2010-11-18 Completed University of VACCINE 00:00:00 [facility] PPD (TB) 2010-11-18 Completed University of 00:00:00 [facility] TDAP (ADACEL) 2010-11-18 Completed University of VACCINE 00:00:00 [facility] PPD (TB) 2010-11-18 Completed University of 00:00:00 [facility] TDAP (ADACEL) 2010-11-18 Completed University of VACCINE 00:00:00 [facility] PPD (TB) 2010-11-18 Completed University of 00:00:00 [facility] TDAP (ADACEL) 2010-11-18 Completed University of VACCINE 00:00:00 [facility] HEPATITIS A 2004-03-02 Completed University of 00:00:00 [facility] HEPATITIS A 2004-03-02 Completed University of 00:00:00 [facility] HEPATITIS A 2004-03-02 Completed University of 00:00:00 [facility] HEPATITIS A 2004-03-02 Completed University of 00:00:00 [facility] HEPATITIS A 2004-03-02 Completed University of 00:00:00 [facility] HEPATITIS A 2003-08-01 Completed University of 00:00:00 [facility] HEPATITIS A 2003-08-01 Completed University of 00:00:00 [facility] HEPATITIS A 2003-08-01 Completed University of 00:00:00 [facility] HEPATITIS A 2003-08-01 Completed University of 00:00:00 [facility] HEPATITIS A 2003-08-01 Completed University of 00:00:00 [facility] Pneumococcal 2001-10-04 Completed University o f Polysaccharide, 00:00:00 [place] [facility] PPSV23 (PNEUMOVAX) Branch PPD (TB) 2001-10-04 Completed University of 00:00:00 [facility] Pneumococcal 2001-10-04 Completed University o f Polysaccharide, 00:00:00 [place] [facility] PPSV23 (PNEUMOVAX) Branch PPD (TB) 2001-10-04 Completed University of 00:00:00 [facility] Pneumococcal 2001-10-04 Completed University o f Polysaccharide, 00:00:00 [place] [facility] PPSV23 (PNEUMOVAX) Branch PPD (TB) 2001-10-04 Completed University of 00:00:00 [facility] Pneumococcal 2001-10-04 Completed University o f Polysaccharide, 00:00:00 [place] [facility] PPSV23 (PNEUMOVAX) Branch PPD (TB) 2001-10-04 Completed University of 00:00:00 [facility] Pneumococcal 2001-10-04 Completed University o f Polysaccharide, 00:00:00 [place] [facility] PPSV23 (PNEUMOVAX) Branch PPD (TB) 2001-10-04 Completed University of 00:00:00 [facility] Vital Signs Vital Name Observation Time Observation Value Comments Source Systolic blood 2021-12-13 06:39:53 170 mm[Hg] Univer sity of pressure [facility] Diastolic blood 2021-12-13 06:39:53 96 mm[Hg] Unive rsity of [facility] Heart rate 2021-12-13 06:39:53 60 /min [facility] Respiratory rate 2021-12-13 06:39:53 18 /min [facility] Oxygen saturation in 2021-12-13 06:39:53 98 /min [facility] Arterial blood by [facility] Pulse oximetry [place] Body temperature 2021-12-13 04:57:00 36.56 [facility] Body height 2021-12-13 04:57:00 162.6 cm [facility] Body weight 2021-12-13 04:57:00 90.719 kg [facility] BMI 2021-12-13 04:57:00 34.33 kg/m2 [facility] Systolic blood 2021-08-21 13:13:00 191 mm[Hg] Univer sity of [facility] Diastolic blood 2021-08-21 13:13:00 99 mm[Hg] Unive rsity of pressure [facility] Heart rate 2021-08-21 13:13:00 52 /min [facility] Body temperature 2021-08-21 13:11:00 36.5 [facility]a [facility] Respiratory rate 2021-08-21 13:11:00 16 /min [facility] Body height 2021-08-21 13:11:00 162.6 cm [facility] Body weight 2021-08-21 13:11:00 93.759 kg [facility] BMI 2021-08-21 13:11:00 35.48 kg/m2 [facility] Oxygen saturation in 2021-08-21 13:11:00 95 /min [facility] Arterial blood by [facility] Pulse oximetry Branch Systolic blood 2021-07-14 15:18:00 142 mm[Hg] [facility] pressure Diastolic blood 2021-07-14 15:18:00 76 mm[Hg] [facility] pressure Heart rate 2021-07-14 15:18:00 61 /min [facility] Body height 2021-07-14 15:18:00 162.6 cm [facility] Body weight 2021-07-14 15:18:00 94.802 [facility] BMI 2021-07-14 15:18:00 35.87 kg/m2 [facility] Systolic blood 2020-12-08 15:48:00 125 mm[Hg] Method [facility] pressure Diastolic blood 2020-12-08 15:48:00 76 mm[Hg] [facility] pressure Heart rate 2020-12-08 15:48:00 64 /min [facility] Body temperature 2020-12-08 15:48:00 36.61 Amina [facility] Respiratory rate 2020-12-08 15:48:00 17 /min [facility] Body height 2020-12-08 15:48:00 162.6 cm [facility] Body weight 2020-12-08 15:48:00 98.884 kg [facility] BMI 2020-12-08 15:48:00 37.42 kg/m2 [facility] Oxygen saturation in 2020-12-08 15:48:00 97 /min [facility] Arterial blood by Pulse oximetry Respitory Rate 2020-08-30 13:00:00 [place] Systolic (mm Hg) 2020-08-30 13:00:00 Caesar rial [place] Diastolic (mm Hg) 2020-08-30 13:00:00 Mem orial [place] Systolic (mm Hg) 2020-08-30 11:00:00 Caesar rial [place] Diastolic (mm Hg) 2020-08-30 11:00:00 Mem orial [place] Temperature Oral (F) 2020-08-30 11:00:00 98.4 F [facility] [place] Respitory Rate 2020-08-30 11:00:00 Memori al [place] Respitory Rate 2020-08-30 10:00:00 [facility] [place] Systolic (mm Hg) 2020-08-30 10:00:00 Caesar rial [place] Diastolic (mm Hg) 2020-08-30 10:00:00 Mem orial [place] Temperature Oral (F) 2020-08-30 00:00:00 96.9 F [facility] [place] Temperature Oral (F) 2020-08-29 11:26:00 97.6 F [facility] [place] Height 2020-08-29 10:30:00 162.56 cm [facility] Weight 2020-08-29 10:30:00 [facility] BMI Calculated 2020-08-29 10:30:00 Memori al [place] Procedures Procedure Date / Time Performing Clinician Source Performed MEDICATION CORRESPONDENCE 2022-01-06 05:01:00 Doctor Unassigned, [facility] Name [facility] [place] MEDICATION CORRESPONDENCE 2021-12-25 05:01:00 Doctor Unassigned, [facility] Name [facility] [place] CT CERVICAL SPINE WO 2021-12-13 05:48:16 Bill Guo [facility] CONTRAST [facility] [place] CT HEAD WO CONTRAST 2021-12-13 05:48:16 Bill Guo [facility] ty [facility] CT LUMBAR SPINE WO 2021-12-13 05:48:16 [facility]o [facility] CONTRAST Medical Branch CT THORACIC SPINE WO 2021-12-13 05:48:16 Bill Guo [facility] CONTRAST Medical Branch ECG 12-LEAD 2021-07-14 15:14:00 Elan Lira [facility] [id number] 2021-06-17 00:00:00 RIKY Freedman [facility] GASTROINTESTINAL PANEL 2020-12-08:21:00 Eliseo Arce [facility] XR ABDOMEN 1 VW 2020-12-08 18:06:32 CadeEliseo monk [facility] [place] < 1 HOUR 2020-09-05 22:39:00 Eliseo Arce [facility] SURGICAL PATHOLOGY REQUEST 2020-09-05 21:54:00 CadeEliseo monk [facility] XR CHEST 1 VW PORTABLE 2020-09-05 19:55:00 JailynEliseo [facility] DISCHARGE PATIENT 2020-09-05 17:27:55 Lucas Harris [facility] [place] AN ELECTIVE 2020-09-05 16:47:23 Kirit Flood [facility] ENDOTRACHEAL AIRWAY EGD, INTRAOPERATIVE 2020-09-05 16:27[facility]00 [facility] PARTIAL THROMBOPLASTIN 2020-09-05 15:04:00 Sarai Maharaj [facility] TIME (PTT) M. PROTHROMBIN TIME WITH INR 2020-09-05 15:04:00 Mindy Maharaj [facility] M. Plan of Care Planned Activity Planned Date Details Comments Source Future Scheduled 2022-01-16 SHINGLES VACCINES ([address] [facility] Test 12:09:25 of 2) [code = SHINGLES VACCINES (1 of 2)] Future Scheduled 2022-01-16 Screening for [facility] Test 12:09:25 malignant neoplasm of cervix (procedure) [code = 205998462] Future Scheduled 2022-01-16 BREAST CANCER [facility] Test 12:09:25 SCREENING [code = BREAST CANCER SCREENING] Future Scheduled 2022-01-16 COLONOSCOPY SCREENING [facility] Test 12:09:25 [code = COLONOSCOPY SCREENING] Future Scheduled 2022-01-16 HEPATITIS B VACCINES Met [facility] Test 12:09:25 (1 of 3 - Risk 3-dose series) [code = HEPATITIS B VACCINES (1 of 3 - Risk 3-dose series)] Future Scheduled 2022-01-16 COVID-19 VACCINE (3 - [facility] Test 12:09:25 Booster for Pfizer series) [code = COVID-19 VACCINE (3 - Booster for Pfizer series)] Future Scheduled 2022-01-16 65+ PNEUMOCOCCAL [facility] Test 12:09:25 VACCINE (4 - PPSV23 or PCV20) [code = 65+ PNEUMOCOCCAL VACCINE (4 - PPSV23 or PCV20)] Future Scheduled 2022-01-16 INFLUENZA VACCINE Method [facility] Test 12:09:25 [code = INFLUENZA VACCINE] Future Scheduled 2022-01-14 SHINGLES VACCINES ([address] [facility] Test 04:11:46 of 2) [code = SHINGLES VACCINES (1 of 2)] Future Scheduled 2022-01-14 Screening for [facility] Test 04:11:46 malignant neoplasm of cervix (procedure) [code = [id number]] Future Scheduled 2022-01-14 BREAST CANCER [facility] Test 04:11:46 SCREENING [code = BREAST CANCER SCREENING] Future Scheduled 2022-01-14 COLONOSCOPY SCREENING [facility] Test 04:11:46 [code = COLONOSCOPY SCREENING] Future Scheduled 2022-01-14 HEPATITIS B VACCINES [facility] Test 04:11:46 (1 of 3 - Risk 3-dose series) [code = HEPATITIS B VACCINES (1 of 3 - Risk 3-dose series)] Future Scheduled 2022-01-14 COVID-19 VACCINE (3 - [facility] Test 04:11:46 Booster for Pfizer series) [code = COVID-19 VACCINE (3 - Booster for Pfizer series)] Future Scheduled 2022-01-14 65+ PNEUMOCOCCAL [facility] Test 04:11:46 VACCINE (4 - PPSV23 or PCV20) [code = 65+ PNEUMOCOCCAL VACCINE (4 - PPSV23 or PCV20)] Future Scheduled 2022-01-14 INFLUENZA VACCINE Method [facility] Test 04:11:46 [code = INFLUENZA VACCINE] Future Scheduled 2021-08-26 Screening for [facility] Test 13:02:23 malignant neoplasm of cervix (procedure) [code = [id number]] Future Scheduled 2021-08-26 BREAST CANCER [facility] Test 13:02:23 SCREENING [code = BREAST CANCER SCREENING] Future Scheduled 2021-08-26 COLONOSCOPY SCREENING [facility] Test 13:02:23 [code = COLONOSCOPY SCREENING] Future Scheduled 2021-08-26 Screening for [facility] Test 13:02:23 malignant neoplasm of lung (procedure) [code = 544547389] Future Scheduled 2021-08-26 SHINGLES VACCINES (#1) [facility] Hospital Test 13:02:23 [code = SHINGLES VACCINES (#1)] Future Scheduled 2021-08-26 COVID-19 VACCINE (3 - Me [facility] Hospital Test 13:02:23 Pfizer risk 4-dose series) [code = COVID-19 VACCINE (3 - Pfizer risk 4-dose series)] Future Scheduled 2021-08-26 65+ PNEUMOCOCCAL [facility] Test 13:02:23 VACCINE (4 of 4 - PPSV23) [code = 65+ PNEUMOCOCCAL VACCINE (4 of 4 - PPSV23)] Future Scheduled 2021-08-26 INFLUENZA VACCINE [facility] Hospital Test 13:02:23 [code = INFLUENZA VACCINE] Encounters Start End Encounter Admission Attending Care Care Encounter Source Date/Time Date/Time Type Type Clinicians Facility Department ID 2021-11-[address] [facility] [id number] [place] 10:32:[id number] [facility] 2021-08-03 Inpatient Ashely, HCACL OUTD [id number] [facility] 11:30:00 Mike [id number] [facility] 2021-07-14 [facility] [id number] [place] 09:33:51 [facility] 2021-06-16 Inpatient RAUL Lund, HCACL OUTD [id number] [facility] 08:30:00 Mike [id number] [facility] 2021-06-15 Inpatient RAUL Lund, HCACL OUTD [id number] [facility] 10:30:00 Mike [id number] [facility] 2022-02-26 2022-02-26 Outpatient [facility] [id number] Univers 08:30:00 08:30:00 SANTIAGO [id number] [facility] 2022-02-26 2022-02-26 Outpatient [facility] [id number] Univers 08:30:00 08:30:00 SANTIAGO [facility] 2022-01-06 2022-01-06 Orders Doctor FERMIN 1.2.840.114 [id number] Univers 00:00:00 00:00:00 Only Unassigned, JACKELINE 350.1.13.10 ity of [place] [facility] 4.2.7.2.[id number] [facility] 009 Branch 2021-12-25 2021-12-25 Orders Doctor FERMIN 1.2.840.114 [id number] Univers 00:00:00 00:00:00 Only Unassigned, JACKELINE 350.1.13.10 [place] [facility] 4.2.7.2.[id number] [facility] 009 [place] 2021-12-12 2021-12-13 Emergency X [facility] ERT [id number] Univers 23:53:00 01:52:00 ity of [facility] 2021-12-12 2021-12-13 Emergency [facility] 1.2.840.114 [id number] Univers 23:53:00 01:52:00 Kiersten BULLOCK 350.1.13.10 i ty of [place] [id number] 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 316 Branch 2021-11-20 2021-11-20 Outpatient R [facility] [id number] Univers 09:45:00 09:45:00 [facility]-11-20 2021-11-20 Outpatient [facility] [id number] Univers 09:45:00 09:45:[id number] [facility] 2021-08-21 2021-08-21 Office [facility] 1.2.697.059 [id number] Univers 08:30:00 09:00:00 Visit [facility] 350.1.13.10 i ty of [place] [place] [id number] [facility] 089 Branch 2021-08-05 2021-08-05 Outpatient WINTER Leal HCACL [id number] [facility] 05:24:00 05:24:00 Mkie 31 [facility] 2021-08-05 2021-08-05 Outpatient EDUARDO LealCL OUTD [id number] [facility] 05:24:00 05:24:00 Mike [id number] [facility] 2021-07-14 2021-07-14 Office Pankaj, UTP 6400 1.2.840.114 13 [id number] ID 08:45:00 09:34:[address] 350.1.13.58 Health 9.2.7.2.686 [id number] 1 2021-07-09 2021-07-09 Telephone Maryjanejuniray, UTP 6400 1.2.840.114 [id number] ID 00:00:00 00:00:[address] 350.1.13.58 Health 9.2.7.2.686 [id number] 1 2021-06-17 2021-06-17 Inpatient EDUARDO LealCL INTE.02 [id number] [facility] 10:56:00 14:36:00 Mike [id number] [facility] 2021-06-17 2021-06-17 Inpatient RAUL Lund HCACL INTE.02 [id number] [facility] 10:56:00 14:36:00 Mike 47 [facility] 2021-04-28 2021-04-28 Telephone Jailyn, 1.2.840.1 [id number] 21 [id number] Methodi 00:00:00 00:00:[address] 3.430.2.7 Hospit a .3.309508 l .8 2021-04-28 2021-04-28 Telephone Jailyn, 1.2.840.3 [id number] 21 [id number] Methodi 00:00:00 00:00:[address] 3.430.2.7 Hospit a .3.530153 l .8 2021-03-31 2021-03-31 Orders Carol Ann, 1.2.840.1 [id number] 21 [id number] Methodi 00:00:00 00:00:00 Only Sarai Corbin. 86534.1.1 979 s t 3.430.2.7 Hospit a .3.857387 l .8 2021-03-31 2021-03-31 Orders Carol Ann, 1.2.840.1 [id number] Methodi 00:00:00 00:00:00 Only Sarai Corbin. 99469.1.1 979 s t 3.430.2.7 Hospit a .3.023077 l .8 2021-03-24 2021-03-24 [facility] 1.2.840.8 [id number] Methodi 00:00:00 00:00:[address] 3.430.2.7 Hospit a .3.201598 l .8 2021-03-24 2021-03-24 Telephone [facility], 1.2.840.9 [id number] Methodi 00:00:00 00:00:[address] 3.430.2.7 Hospit a .3.966077 l .8 2021-01-19 2021-01-19 Telephone Prabhu, 1.2.840.1 [id number] 2099 [id number] Methodi 00:00:00 00:00:[address] 3.430.2.7 Hospit a .3.677754 l .8 2021-01-19 2021-01-19 Telephone Prabhu 1.2.840.1 [id number] 2[id number] Methodi 00:00:00 00:00:[address] 3.430.2.7 Hospit a .3.923114 l .8 2020-12-12 2020-12-12 Office Hematpour, UTP 6400 1.2.840.114 12 [id number] 07:42:02 08:18:[address] 350.1.13.58 9.2.7.2.686 [id number] 1 2020-12-09 2020-12-09 Telephone [facility], 1.2.840.1 [id number] Methodi 00:00:00 00:00:00 Sarai Corbin. 70873.1.1 316 s t 3.430.2.7 Hospit a .3.375370 l .8 2020-12-08 2020-12-08 [facility], 1.2.840.1 [id number] 2100 [id number] Methodi 12:35:54 23:59:00 Encounter Ray 96824.1.[address] 3.430.2.7 Hospit a .3.688732 l .8 2020-12-08 2020-12-08 Lab [facility], 1.2.840.1 [id number] 59823 09461 Methodi 17:25:00 17:30:[address] 3.430.2.7 Hospit a .3.935719 l .8 2020-12-08 2020-12-08 Office [facility], 1.2.840.1 [id number] 07861 Methodi 10:30:00 11:39:56 Visit Ray 86475.1.[address] 3.430.2.7 Hospit a .3.011754 l .8 2020-12-08 2020-12-08 Travel 1.2.840.1 1.2.107.783 0063 690214 Methodi 00:00:00 00:00:[address] 3.430.2.7 0.2.7.3.698 spita .3.253214 084.8 l .8 2020-12-02 2020-12-02 Radio [employer]er [employer] [facility] 1.2.840.114 8 [id number] 10:20:06 10:36:19 Visit HEALTH 350.1.13.10 CLINICS 4.2.7.2.686 [id number] 316 2020-11-25 2020-11-25 [facility] 1.2.840.114 [id number] 11:06:30 11:58:14 Visit Robbi Hairston 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 350.1.13.10 [facility] 4.2.7.2.686 MATERNAL [id number] & CHILD 107 [facility] 2020-11-25 2020-11-25 [facility] 1.2.584.334 2071 4592 00:00:00 00:00:00 [facility] 350.1.13.10 [facility] 4.2.7.2.686 [id number] 089 2020-11-25 2020-11-25 Telephone Devin [facility] 1.2.262.682 1350 0821 00:00:00 00:00:00 Robbi Hairston 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 350.1.13.10 REGIONAL 4.2.7.2.686 MATERNAL [id number] & CHILD 107 [facility] 2020-11-14 2020-11-14 Abstract Clark, 1.2.840.1 [id number] [id number] Methodi 00:00:00 00:00:[address] 3.430.2.7 Hospit a .3.081181 l .8 2020-11-14 2020-11-14 Telephone Clark, 1.2.840.1 [id number] 2099 [id number] Methodi 00:00:00 00:00:[address] 3.430.2.7 Hospit a .3.541565 l .8 2020-11-07 2020-11-07 Telephone KIMBERLEY Ortiz 6400 1.2.840.114 124 [id number] 00:00:00 00:00:00 Agustina RUIZ 350.1.13.58 9.2.7.2.686 [id number] 1 2020-10-27 2020-10-27 Telephone Jailyn 1.2.840.3 [id number] Methodi 00:00:00 00:00:[address] 3.430.2.7 Hospit a .3.152538 l .8 2020-10-24 2020-10-24 Telephone Clark 1.2.840.1 [id number] 2100 [id number] Methodi 00:00:00 00:00:[address] 3.430.2.7 Hospit a .3.198385 l .8 2020-10-06 2020-10-[facility] 1.2.840.1 [id number] 21 [id number] Methodi 15:30:00 00:08:46 ne Ray 72609.1.[address] 3.430.2.7 Hospit a .3.229215 l .8 2020-09-30 2020-09-30 [facility], 1.2.840.2 [id number] Methodi 00:00:00 00:00:[address] 3.430.2.7 Hospit a .3.511185 l .8 2020-09-21 2020-09-21 Travel 1.2.840.1 1.2.882.757 0611 [id number] Methodi 00:00:00 00:00:[address] 3.430.2.7 0.2.7.3.698 Ho spita .3.475806 084.8 l .8 2020-09-06 2020-09-06 [facility] 1.2.840.1 [id number] 99780 Methodi 17:42:30 23:59:[address] 3.430.2.7 Hospit a .3.798373 l .8 2020-09-06 2020-09-06 [facility], 1.2.840.1 [id number] 2100 [id number] Methodi 16:50:00 17:41:00 Encounter Ray [address]1655.1.[address] 3.430.2.7 Hospit a .3.867211 l .8 2020-09-05 2020-09-05 [facility], 1.2.840.1 [id number] 2099 [id number] Methodi 09:17:00 19:45:00 Encounter Ray [address]010.1.[address] 3.430.2.7 Hospit a .3.098771 l .8 2020-09-05 2020-09-05 Surgery Chihara, 1.2.840.1 [id number] 66555 70922 Methodi 11:30:00 13:15:[address] 3.430.2.7 Hospit a .3.426506 l .8 2020-09-05 2020-09-05 Anesthesia Remigio, 1.2.840.1 [id number] 862 [id number] Methodi 11:27:00 12:20:00 Event Johnathanthi 09576.1.1 243 s t V. 3.430.2.7 Hospit a .3.679579 l .8 2020-09-05 2020-09-05 Travel 1.2.840.1 1.2.068.979 6053 [id number] Methodi 00:00:00 00:00:[address] 3.430.2.7 0.2.7.3.698 Ho spita .3.719956 084.8 l .8 2020-09-04 2020-09-04 Telephone Meisenbach, 1.2.840.1 [id number] Methodi 00:00:00 00:00:00 Sarai Corbin. 10097.1.1 762 s t 3.430.2.7 Hospit a .3.826512 l .8 2020-09-02 2020-09-02 Telephone Meisenbach, 1.2.840.6 [id number] Methodi 00:00:00 00:00:00 Sarai Corbin. 70295.1.1 344 s t 3.430.2.7 Hospit a .3.131281 l .8 2020-08-29 2020-08-30 Bedded [facility] [id number] [facility] 10:20:00 14:10:00 Outpatient r [place] 00 l [facility] 2020-08-29 2020-08-30 Outpatient HEM[place], [facility] CAR 7500 [facility] 05:20:00 09:10:00 [place] Results Test Description Test Time Test Comments Results Result Comments Source Novel Coronavirus 2019 Inhouse 2021-08-03 18:08:00 Test Item Value Reference Range Interpretation Comme nts Novel Coronavirus 2018 Negative Negative Posit bruno results are indicative of the Inhouse (test code = presenc e mnFLVH-JuL-3 RNA, clinical COVNONPUI) correlation wit h patient [...] qualitative detection of nucleic acid s from jklFDJF-XsH-0 virus and diagn osis of SARS-CoV-2 virusinfection. It is an Emergency Use Authorization ( EUA) testauthorized by the U.S. FDA. BASIC METABOLIC [id number] 09:37:00 Test Item Value Reference Range Interpretation [...] = 9.0 mg/dL 8.0-10.5 N CA) PROTHROMBIN [id number] 09:32:00 Test Item Value Reference Range Interpretation [...] (to prevent recurrent infar ct). 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 BASIC METABOLIC [id number] 11:37:00 Test Item Value Reference Range Interpretation [...] code = 9.0 mg/dL 8.0-10.5 N CA) [id number] 11:37:00 Test Item Value Reference Range Interpretation Comments PREALBUMIN (test code = PREALB) 24.3 mg/dL 16.0-40.0 N PROTHROMBIN [id number] 11:03:00 Test Item Value Reference Range Interpretation [...] (to prevent recurrent infar ct). CBC W/AUTO [id number] 10:59:00 Test Item Value Reference Range Interpretation [...] 0.0-0.1 N NRBC#) - XR CHEST 2 [id number] 00:00:00 [facility] : 1955 Sex: F FAX: Carmenza Kelly DO [phone] [place]: St: PRE FAX: Mike Scales MD [phone] Name: LIO WATTS [facility] : 1955 Age/S: 66/F [address] [place] [address] Unit #: [id number] Loc: M[place] QuinteroterKWABENA [address]Wuvw: Mike Lund MD Acct: [id number] Dis Date: Status: PRE [facility] [place]ONE #: [phone] Exam Date: 06/16/2021 1120 FAX #: [phone] Reason: PREOP EXAMS: CPT CODE: [id number] XR CHEST 2 V 64734 PROCEDURE INFORMATION: Exam: XR Chest Exam date [...] MD Technologist: RT Andree(R) Trnscrd Date/Time/By: 06/16/2021 (1134) : By: [email or web address] Orig Print D/T: S: 06/16/2021 (0649) PAGE 1 Signed ReportGastrointestinal [id number] 04:35:05 Test Item Value Reference Interpretation Comments [...] Rotavirus PCR (test Not Detected code = 6359330) Salmonella PCR (test Not Detected code = [...] code = 7124) [facility] [id number] 19:30:47 Test Item Value Reference Range Interpretation Comments Case number (test [id number] code = 6851385) Surgical pathology See link below for PDF report (test code = Lab Report 2255) Result status (test This is Supplemental code = 1338295) Report for [id number] [facility]2021-04-09 16:31:00 Test Item Value Reference Range Interpretation Comments POC Activated Clotting Time (test code 153 s = POC Activated Clotting Time) [facility] WorthNevcsnoTWJABJOWUO3880-76-24 16:31:00 Test Item Value Reference Range Interpretation Comments POC Activated Clotting Time (test code 153 s = POC Activated Clotting Time) [facility] WorthWwwmsfdDYBKRDBHZX1254-07-03 16:31:00 Test Item Value Reference Range Interpretation Comments POC Activated Clotting Time (test code 153 s = POC Activated Clotting Time) [facility] WorthMcjqayqPLKLNBLDRU1891-48-26 16:31:00 Test Item Value Reference Range Interpretation Comments POC Activated Clotting Time (test code 153 s = POC Activated Clotting Time) [facility] WorthApxwcalJORNDKLRHO6272-34-80 16:31:00 Test Item Value Reference Range Interpretation Comments POC Activated Clotting Time (test code 153 s = POC Activated Clotting Time) [facility] WorthLaqonqaNXJSZMGBHG3658-33-07 16:31:00 Test Item Value Reference Range Interpretation Comments POC Activated Clotting Time (test code 153 s = POC Activated Clotting Time) [facility] WorthElzievsRZZCXEIBWQ3474-09-00 16:31:00 Test Item Value Reference Range Interpretation Comments POC Activated Clotting Time (test code 153 s = POC Activated Clotting Time) [facility] WorthNemeovgTORYOSCEHL9213-76-15 14:37:00 Test Item Value Reference Range Interpretation Comments POC Activated Clotting Time (test code 454 s = POC Activated Clotting Time) [facility] WorthIxtlymiCAFUKJOIET8911-80-31 14:37:00 Test Item Value Reference Range Interpretation Comments POC Activated Clotting Time (test code 454 s = POC Activated Clotting Time) [facility] WorthXfzaucqBOERJHJSQJ1177-16-47 14:37:00 Test Item Value Reference Range Interpretation Comments POC Activated Clotting Time (test code 454 s = POC Activated Clotting Time) [place] 135881-04-09 14:37:00 Test Item Value Reference Range Interpretation Comments POC Activated Clotting Time (test code 454 s = POC Activated Clotting Time) [facility] WorthDkpcbflXZMJWFXQJS0778-20-78 14:37:00 Test Item Value Reference Range Interpretation Comments POC Activated Clotting Time (test code 454 s = POC Activated Clotting Time) [facility] WorthYrvnkxdXKABDHQGDX0019-21-57 14:37:00 Test Item Value Reference Range Interpretation Comments POC Activated Clotting Time (test code 454 s = POC Activated Clotting Time) [facility] WorthSjvdvfxQFLHXZISMQ4571-74-22 14:37:00 Test Item Value Reference Range Interpretation Comments POC Activated Clotting Time (test code 454 s = POC Activated Clotting Time) [facility] WorthCpoegkhLIEWNBRGAR0645-77-62 14:13:00 Test Item Value Reference Range Interpretation Comments POC Activated Clotting Time (test code 354 s = POC Activated Clotting Time) [facility] WorthMjclomhVBKFHQQXZX2327-99-94 14:13:00 Test Item Value Reference Range Interpretation Comments POC Activated Clotting Time (test code 354 s = POC Activated Clotting Time) [facility] WorthAkjkgyfQJOMVDLVGR2575-00-38 14:13:00 Test Item Value Reference Range Interpretation Comments POC Activated Clotting Time (test code 354 s = POC Activated Clotting Time) [facility] WorthRaimgbjCLBQBMWCHD0931-87-40 14:13:00 Test Item Value Reference Range Interpretation Comments POC Activated Clotting Time (test code 354 s = POC Activated Clotting Time) [facility] WorthMcjxvesYJUFVDYODB8971-36-60 14:13:00 Test Item Value Reference Range Interpretation Comments POC Activated Clotting Time (test code 354 s = POC Activated Clotting Time) [facility] WorthZrbjmfbZZKIBAGXAX8236-47-02 14:13:00 Test Item Value Reference Range Interpretation Comments POC Activated Clotting Time (test code 354 s = POC Activated Clotting Time) [facility] WorthJipidanCRPJEOLMWA1069-76-15 14:13:00 Test Item Value Reference Range Interpretation Comments POC Activated Clotting Time (test code 354 s = POC Activated Clotting Time) [facility] [id number] 10:37:00Negative (08/29/20 5:37 AM) [facility] BPTRE7226-74-81 10:37:05764Qirxxfbz HermannCHEM PANEL 2020-08-29 10:37:0028[facility] HermannCHEM COUNJ9775-31-99 10:37:001.01[facility] HermannCHEM HVCHD1366-52-59 10:37:70784Vfxunyfq HermannCHEM VMNIF7022-76-33 10:37:003.8[facility] HermannCHEM PQBBU4116-72-72 10:37:09895Ysyzlfka HermannCHEM GBCHD9978-48-74 10:37:0028[facility] HermannCHEM HAWQU2307-40-50 10:37:009.8 [facility]annCHEM ORNMJ5659-28-32 10:37:0011.8[facility] HermannCHEM PANEL 2020-08-29 10:37:0059[facility] HermannCHEM HQUJN8545-06-70 10:37:002.9Memorial AjipwcbBTVGEVZGLX6990-73-39 10:37:006.8Memorial GqbyciyJRISGMDRPQ5939-18-56 10:37:004.47Memorial ZqridkdQRGOOTOQSI8291-70-00 10:37:0010.6[facility] Marty QTPPPVRVXR0542-11-74 10:37:0034.0Memorial MwqzuezENRIAZIUDX4554-03-96 10:37:00 76.1Memorial LuvgtubZWTFUQRTSB9340-10-22 10:37:00 Test Item Value Reference Range Interpretation Comments MCH (test code = MCH) 23.8 pg 27.0-31.0 Memorial VnzjggjBATZHQBLCV5576-85-01 10:37:0031.3[facility] HermannHEMATOLOGY 2020-08-29 10:37:0018.2Memorial XwogbajUJVUTLWZRL5962-25-67 10:37:64102Spnqiies DfhuatzJLCQOLNKNA0480-18-46 10:37:007.5[facility]orial TkcazhyTONHDECNPG9291-20-40 10:37:00 Test Item Value Reference Range Interpretation Comments PT (test code = PT) 12.8 s 12.0-14.7 Memorial LbwohsgOVYIHCABOA2888-07-79 10:37:00 Test Item Value Reference Range Interpretation Comments INR (test code = INR) 0.97 1 0.85-1.17 Memorial JmcrrtoHCVHYEDGDZ9941-13-57 10:37:00 Test Item Value Reference Range Interpretation Comments PTT (test code = PTT) 25.0 s 22.9-35.8 Memorial KmfurcxQDFCXOFCIL7436-88-04 10:37:0070.5[facility] HermannHEMATOLOGY 2020-08-29 10:37:0018.8Memorial RxulxxeEGJZLUBGFO0801-71-50 10:37:009.5Memorial MkngqqsSRSSIXEDRH3545-62-03 10:37:000.9Memorial FlsxjwvIUXIEXEYVQ5082-97-84 10:37:000.3Memorial XtrkyiqKHERUVXLKM2616-17-74 10:37:004.8[facility] Marty VUCOQDAOEX3845-37-38 10:37:001.3Memorial HnctdwoEKGEOMXIHU7236-52-33 10:37:000.6 Memorial RmgjfolXPKNDRPKCZ4515-48-82 10:37:000.1[facility] HermannHEMATOLOGY 2020-08-29 10:37:001+ *ABN*(08/29/20 5:37 AM)[facility] FvnolwsPFCUJXNZFT8099-94-35 10:37:00Not Detected (08/29/20 5:37 AM)[facility] HermannBLOOD BANK RESULTS 2020-08-29 10:37:00Negative (08/29/20 5:37 AM)[facility] HermannCHEM LDEDT9480-62-23 10:37:46683Rygflcch HermannCHEM BKWXG4051-31-00 10:37:0028[facility] HermannCHEM ANTXV7955-78-33 10:37:001.01[facility] HermannCHEM OOUUT2727-70-77 10:37:23091 [facility]annCHEM SZFLN8799-82-65 10:37:003.8[facility] HermannCHE[facility] PANEL 2020-08-29 10:37:03164Gcxmldvy HermannCHEM CHMWU9385-60-77 10:37:0028[facility]annCHE[facility] YFDDV4745-51-86 10:37:009.8[facility]ann[facility] AFKPD5789-81-54 10:37:0011.8[facility]annCHE[facility] DOONE4752-77-81 10:37:0059[facility]CHE[facility] RPDHZ6623-87-23 10:37:002.9[facility] AuhqchwGOQJQKUXCT5824-32-62 10:37:006.8 [facility] GnuxzgaFRXWHJESUT8309-02-13 10:37:004.47[facility]annHEMATOLOGY 2020-08-29 10:37:0010.6[facility] DiwqnixMRWTFKBJNI8659-33-40 10:37:0034.0[facility] FdeqcwbMVAJXAHSKV2170-13-48 10:37:0076.1[facility] KwgstutEODRBPCHEH6813-98-86 10:37:00 Test Item Value Reference Range Interpretation Comments MCH (test code = MCH) 23.8 pg 27.0-31.0 [facility] NzsbdlyJPPGNZUSYD1666-17-61 10:37:0031.3[facility]annHEMATOLOGY 2020-08-29 10:37:0018.2[facility] WgxcgyjBAEEYLLOMO6470-15-46 10:37:04565Sgtqonhp LrmuwdkPZHLRFVJCQ6191-49-38 10:37:007.5[facility] LafgjsdTCVRJCVKTR0514-17-71 10:37:00 Test Item Value Reference Range Interpretation Comments PT (test code = PT) 12.8 s 12.0-14.7 [facility] CreqdgjDWYGCFUCNC0594-85-34 10:37:00 Test Item Value Reference Range Interpretation Comments INR (test code = INR) 0.97 1 0.85-1.17 [facility] MnzbvjbLJXHULEFKH5616-07-43 10:37:00 Test Item Value Reference Range Interpretation Comments PTT (test code = PTT) 25.0 s 22.9-35.8 [facility] EcgsqpvQBLDUXSJFE8774-23-02 10:37:0070.5[facility]annHEMATOLOGY 2020-08-29 10:37:0018.8[facility] KoachokVISMMFBNUK9161-02-58 10:37:009.5[facility] FqencefEWVBIWWKEJ6977-34-83 10:37:000.9[facility] CmaguxqWCZRDKKQML9701-70-31 10:37:000.3[facility] EhvznguHSLEKRFRCJ6771-06-79 10:37:004.8[facility] [place] WIQAUJKQJK9455-29-72 10:37:001.3[facility] NgqppyuOJCSHUHUTR4064-33-45 10:37:000.6 [facility] UaiuhhnZZEOMILQDT6108-16-46 10:37:000.1[facility]annHEMATOLOGY 2020-08-29 10:37:001+ *ABN*(08/29/20 5:37 AM)[facility] SynddgyNHRGTYIJHZ6490-04-13 10:37:00Not Detected (08/29/20 5:37 AM)[facility] 2020-08-29 10:37:00Negative (08/29/20 5:37 AM)[facility]annCHE[facility] BCKXI0528-87-78 10:37:44786Mseoqbbd HermannCHEM KUMJJ6914-41-14 10:37:0028[facility]annCHEM WVVRB9775-65-94 10:37:001.01[facility]annCHEM JHFGE9808-46-63 10:37:44323 [facility] EWZZQ4918-59-27 10:37:003.8[facility]annCHEM PANEL 2020-08-29 10:37:62408Nmsivohb HermannCHEM OEVQG6262-43-54 10:37:0028[facility]annCHEM WKCOE3309-96-43 10:37:009.8[facility]ann[facility] NHKHQ8740-02-04 10:37:0011.8[facility]annCHE[facility] QNKJG2744-70-13 10:37:0059[facility]annCHEM JEZWD4533-83-09 10:37:002.9[facility] WdoxhcrQRRWMGJLLU6931-34-95 10:37:006.8 [facility] MybewitDYDULILGKK0168-81-06 10:37:004.47[facility]annHEMATOLOGY 2020-08-29 10:37:0010.6[facility] CaucersHWMFYTHKZM8141-45-13 10:37:0034.0[facility] JlkwvghGMGQEVSUZQ2841-51-63 10:37:0076.1[facility] PzbixhbDMUGXOFTRB7622-95-38 10:37:00 Test Item Value Reference Range Interpretation Comments MCH (test code = MCH) 23.8 pg 27.0-31.0 [facility] TdnbtomZFZUBJHTMY0378-93-21 10:37:0031.3[facility]annHEMATOLOGY 2020-08-29 10:37:0018.2[facility] YvpmxpuAGJFEDCNIB6734-61-95 10:37:04805Wsxqxjgm JfolcguMVTCAHOCME4116-40-95 10:37:007.5[facility] PtrxlleJNIBZXACZG1285-61-35 10:37:00 Test Item Value Reference Range Interpretation Comments PT (test code = PT) 12.8 s 12.0-14.7 [facility] ShbrvulDFGPHLZVCE8573-41-03 10:37:00 Test Item Value Reference Range Interpretation Comments INR (test code = INR) 0.97 1 0.85-1.17 [facility] ItizremUIDONCJFQX8158-88-19 10:37:00 Test Item Value Reference Range Interpretation Comments PTT (test code = PTT) 25.0 s 22.9-35.8 [facility] GptjnkfMPTYZYOTYN6833-31-34 10:37:0070.5[facility]annHEMATOLOGY 2020-08-29 10:37:0018.8[facility] FlvvoewCYVJZXYVUT0085-83-25 10:37:009.5[facility] PcvtyrqTVSVUPPFMN7574-17-01 10:37:000.9[facility] NqxkvgvVSVAXLGLIE6469-22-76 10:37:000.3[facility] FmuntzwYXNJTEAHBO4341-30-89 10:37:004.8[facility] [place] LKAPGOANIJ6789-20-06 10:37:001.3[facility] TientunAPSUUSVQJS3262-31-81 10:37:000.6 [facility] GqerhsdDRDFUEZAHQ4612-56-15 10:37:000.1[facility]annHEMATOLOGY 2020-08-29 10:37:001+ *ABN*(08/29/20 5:37 AM)[facility] RfjoccpFFIVZRRCPT1078-61-96 10:37:00Not Detected (08/29/20 5:37 AM)[facility]annBLOOD BANK RESULTS 2020-08-29 10:37:00Negative (08/29/20 5:37 AM)[facility]annCHEM GYHTZ4295-96-31 10:37:34647Zdahocon HermannCHEM LNWQO4174-60-01 10:37:0028[facility]annCHE[facility] MIJLE1137-55-12 10:37:001.01[facility]annCHEM LEJAG6710-57-11 10:37:79544 [facility] VJJDL6013-87-16 10:37:003.8[facility]annCHEM PANEL 2020-08-29 10:37:80321Viihsole HermannCHEM KGCQF4896-74-05 10:37:0028[facility]annCHE[facility] AXGAG1180-65-60 10:37:009.8[facility]annCHE[facility] GCUBW0519-27-72 10:37:0011.8[facility]annCHE[facility] PKDRK8138-95-57 10:37:0059[facility]annCHEM XVTXM7181-44-13 10:37:002.9[facility] AxqjewrJFFDBWJRQN5763-15-97 10:37:006.8 [facility] WvqjrofFHNDZCYLZA7925-69-75 10:37:004.47[facility]annHEMATOLOGY 2020-08-29 10:37:0010.6[facility] CnnqenqYKBIIRZVWL3885-79-72 10:37:0034.0[facility] SzmmbktHMLKYDVEMA4714-81-31 10:37:0076.1[facility] BanaxyoAHDWOOTJIJ1189-49-82 10:37:00 Test Item Value Reference Range Interpretation Comments MCH (test code = MCH) 23.8 pg 27.0-31.0 [facility] SirbblpOEQYFULKVU6273-78-60 10:37:0031.3[facility]annHEMATOLOGY 2020-08-29 10:37:0018.2[facility] QtklhovXAUCSLVTYZ2671-17-85 10:37:51387Evkikvmy UrdpfpmTSOVKDLKRS1852-22-48 10:37:007.5[facility] VxrqxytHUBXBYPIBV0058-29-44 10:37:00 Test Item Value Reference Range Interpretation Comments PT (test code = PT) 12.8 s 12.0-14.7 [facility] BvadmxpIMIHVGZFJG8733-28-53 10:37:00 Test Item Value Reference Range Interpretation Comments INR (test code = INR) 0.97 1 0.85-1.17 [facility] NybbtapBKZNYBAHRU5268-24-10 10:37:00 Test Item Value Reference Range Interpretation Comments PTT (test code = PTT) 25.0 s 22.9-35.8 [facility] WytlwcoIGBBGULSCB1407-84-78 10:37:0070.5[facility]annHEMATOLOGY 2020-08-29 10:37:0018.8[facility] GcbsgolIVGRTKXGBA2631-41-56 10:37:009.5[facility] WtlqibzIUIUZNFYQG8572-20-47 10:37:000.9[facility] YcxeprnXQMYUVVSSU2335-71-43 10:37:000.3[facility] OwdmnkdYDZDWZCCAS2832-67-72 10:37:004.8[facility] AQSTRHXCZL3092-34-02 10:37:001.3[facility] MwrinmmABPSTVUDXO0183-76-81 10:37:000.6 [facility] CfkforzWIBWKWKRFF5578-88-95 10:37:000.1[facility]annHEMATOLOGY 2020-08-29 10:37:001+ *ABN*(08/29/20 5:37 AM)[facility] ZysfrmqDKEDVHGRXV7257-98-67 10:37:00Not Detected (08/29/20 5:37 AM)[facility]annBLOOD BANK RESULTS 2020-08-29 10:37:00Negative (08/29/20 5:37 AM)[facility]annCHEM OVXUJ5614-94-00 10:37:49680Yfjawffs HermannCHEM OSPIL2613-68-92 10:37:0028[facility]annCHEM MPSDX1532-47-66 10:37:001.01[facility]annCHE[facility] YDNJE2283-69-55 10:37:74828 [facility]CHE[facility] NWQGQ0435-74-12 10:37:003.8[facility]annCHEM PANEL 2020-08-29 10:37:03995Ctnbdloo HermannCHEM DOCXL8484-47-99 10:37:0028[facility]annCHEM PTSUU5868-11-64 10:37:009.8[facility]annCHEM UDBNZ5189-29-92 10:37:0011.8[facility]annCHEM WNQQX5108-20-32 10:37:0059[facility]annCHEM YVWFS1996-01-04 10:37:002.9[facility] WtrfvnrJZPAAWAFMP2122-44-49 10:37:006.8 [facility] HwxjsupULLYNXJHJH3721-56-26 10:37:004.47[facility]annHEMATOLOGY 2020-08-29 10:37:0010.6[facility] ZgvtsquKXIQPVQXZN0473-90-24 10:37:0034.0[facility] VwbnafuZVFIXSIHPA2163-07-86 10:37:0076.1[facility] EnpuchbHVAWUWVEIB7926-97-38 10:37:00 Test Item Value Reference Range Interpretation Comments MCH (test code = MCH) 23.8 pg 27.0-31.0 [facility] ZoqzluvHLJFJRUAJZ8924-76-21 10:37:0031.3[facility]annHEMATOLOGY 2020-08-29 10:37:0018.2[facility] XqltfwvHWGBKRHXAN1768-14-75 10:37:93870Ysftoqzk QognnacFCVQPNGVAL7909-93-02 10:37:007.5[facility] StkcmevVTPVZVGEKH5272-27-29 10:37:00 Test Item Value Reference Range Interpretation Comments PT (test code = PT) 12.8 s 12.0-14.7 [facility] PgxxpcjWARTRZZPGG0592-12-09 10:37:00 Test Item Value Reference Range Interpretation Comments INR (test code = INR) 0.97 1 0.85-1.17 [facility] VobtflwPFRDSMZBOT9705-08-77 10:37:00 Test Item Value Reference Range Interpretation Comments PTT (test code = PTT) 25.0 s 22.9-35.8 [facility] TjgucllBKLJVDSFQT3953-46-55 10:37:0070.5[facility]annHEMATOLOGY 2020-08-29 10:37:0018.8[facility] OoharziBPPAMRSWCQ5636-94-67 10:37:009.5[facility] BjpnifcPBFCIKUDGR7515-99-69 10:37:000.9[facility] SjjkfhhXNORHOFRSB6939-55-39 10:37:000.3[facility] DisbeszIDEVMJZHXS6416-86-46 10:37:004.8[facility] LBZCPLNYPW6324-18-48 10:37:001.3[facility] PbnwcrjNLCADTHKQQ2399-24-15 10:37:000.6 [facility] McgsezfHFIZMDEPGY6406-46-99 10:37:000.1[facility] HermannHEMATOLOGY 2020-08-29 10:37:001+ *ABN*(08/29/20 5:37 AM)[facility] ZijdfhnSGQXKJKBZG6437-05-53 10:37:00Not Detected (08/29/20 5:37 AM)[facility]annBLOOD BANK RESULTS 2020-08-29 10:37:00Negative (08/29/20 5:37 AM)[facility]annCHEM IHQGF8051-17-42 10:37:74922Whaktxjq HermannCHEM AHJHH3235-09-85 10:37:0028[facility]annCHEM AFSHG4326-36-78 10:37:001.01[facility]annCHEM NXZBI4710-43-84 10:37:36938 [facility]CHE[facility] DMWRP1637-22-92 10:37:003.8[facility] HermannCHEM PANEL 2020-08-29 10:37:41185Unyidtvz HermannCHEM HKFCJ6370-46-91 10:37:0028[facility]annCHEM HDZCG6743-14-14 10:37:009.8[facility]annCHEM PGWCB0308-74-04 10:37:0011.8[facility] HermannCHEM KOOTF9622-34-17 10:37:0059[facility]annCHEM WMCJU1923-49-44 10:37:002.9[facility] VtqvyakBWJMKHCDGF9433-24-47 10:37:006.8 [facility] NqqfahvKWJPWYCRTX9801-78-50 10:37:004.47[facility]annHEMATOLOGY 2020-08-29 10:37:0010.6[facility] YjaikwwDHMUDSBVCS2567-76-98 10:37:0034.0[facility] MtbrtieKKZVUNKRSE5139-34-74 10:37:0076.1[facility] OvogfrbZHCPZERFLS8850-70-12 10:37:00 Test Item Value Reference Range Interpretation Comments MCH (test code = MCH) 23.8 pg 27.0-31.0 [facility] WempwwiEQHLMIHKMT1602-41-27 10:37:0031.3[facility] HermannHEMATOLOGY 2020-08-29 10:37:0018.2[facility] UlananzUXFAIZWFIO9513-59-44 10:37:35006Vkheqvtl LsmtqsrWTETTNKMQP2981-82-15 10:37:007.5[facility] IveqnpbCUPJQARAJC8459-43-48 10:37:00 Test Item Value Reference Range Interpretation Comments PT (test code = PT) 12.8 s 12.0-14.7 [facility] PbkypuuLCVCWZPDWV0153-40-60 10:37:00 Test Item Value Reference Range Interpretation Comments INR (test code = INR) 0.97 1 0.85-1.17 [facility] BabnlqpIQOWQWEHHB6165-37-36 10:37:00 Test Item Value Reference Range Interpretation Comments PTT (test code = PTT) 25.0 s 22.9-35.8 [facility] ThwmhfqJUMEUNTIQX0642-32-81 10:37:0070.5[facility]annHEMATOLOGY 2020-08-29 10:37:0018.8[facility] PcrxohxQSCKXFXMZN6445-67-14 10:37:009.5[facility] VfnjycmHPCNCANXSR0392-29-28 10:37:000.9[facility] LgvxllpHRNUVASBFG6067-45-17 10:37:000.3[facility] IcgsxqlJOLKFNXNED0193-42-22 10:37:004.8[facility] [place] YUJPOZPRHL4527-28-12 10:37:001.3[facility] DbqmiwnCLCTGPPNNJ7937-81-21 10:37:000.6 [facility] JuqtywvKGEBIBGJPK8098-21-85 10:37:000.1[facility]annHEMATOLOGY 2020-08-29 10:37:001+ *ABN*(08/29/20 5:37 AM)[facility] HhgmnsnHORQMAAEAG2997-05-61 10:37:00Not Detected (08/29/20 5:37 AM)[facility]annBLOOD BANK RESULTS 2020-08-29 10:37:00Negative (08/29/20 5:37 AM)[facility]annCHEM ULMJH3951-87-23 10:37:36038Aygspkjx HermannCHEM TATHX9654-68-84 10:37:0028[facility]annCHEM HSRKC4515-45-78 10:37:001.01[facility]annCHEM NRGFS8470-11-28 10:37:34974 [facility]CHE[facility] NZOLX4544-94-69 10:37:003.8[facility]annCHEM PANEL 2020-08-29 10:37:71756Tcjtckxa HermannCHEM SACHT2344-50-71 10:37:0028[facility]annCHEM SFENP5138-65-02 10:37:009.8[facility]annCHEM VMSWI9244-77-21 10:37:0011.8[facility]annCHEM STBKS0333-82-22 10:37:0059[facility]annCHEM CQFLN2310-39-04 10:37:002.9[facility] QcyxiloHHLZTUFYWX0713-86-85 10:37:006.8 [facility] WcctrxyFBRQGHZICE2616-09-11 10:37:004.47[facility]annHEMATOLOGY 2020-08-29 10:37:0010.6[facility] RxeigqmFKCFCMHVDS1850-91-61 10:37:0034.0[facility] UjexqwvIBULQUPFPP7950-39-23 10:37:0076.1[facility] GctxfkfDLWJHCFWHA0140-66-00 10:37:00 Test Item Value Reference Range Interpretation Comments MCH (test code = MCH) 23.8 pg 27.0-31.0 [facility] IslhanoERIIYGAMKM9698-34-10 10:37:0031.3[facility]annHEMATOLOGY 2020-08-29 10:37:0018.2[facility] IflyseiPCQNDQZQDC9875-41-78 10:37:75123Ixsvjsxt QjonrciNAREZWILQP6618-04-22 10:37:007.5[facility] QujtjqvLIDKMDYHDP3194-10-27 10:37:00 Test Item Value Reference Range Interpretation Comments PT (test code = PT) 12.8 s 12.0-14.7 [facility] SgnbgvdEKLFXZYSRI0557-62-71 10:37:00 Test Item Value Reference Range Interpretation Comments INR (test code = INR) 0.97 1 0.85-1.17 [facility] YjzfvshKXBOYXJQRS1557-35-40 10:37:00 Test Item Value Reference Range Interpretation Comments PTT (test code = PTT) 25.0 s 22.9-35.8 [facility] AjcrmhmRLOVKDYNCC0593-54-69 10:37:0070.5[facility]annHEMATOLOGY 2020-08-29 10:37:0018.8[facility] PkmsxocZOWBGSRTDF2895-87-14 10:37:009.5[facility] GpeekigVLGLTGNBGX3673-54-12 10:37:000.9[facility] HrtvvpjCMKXLFYSJX8068-99-79 10:37:000.3[facility] DkvbkajDCHKTSJWPN0745-55-18 10:37:004.8[facility] [place] WGHCJDUHDF8566-75-00 10:37:001.3[facility] RokkykgHFDBRCMUGG6133-63-13 10:37:000.6 [facility] XfeuzmeQYGQXFPKGT8263-77-72 10:37:000.1[facility] HermannHEMATOLOGY 2020-08-29 10:37:001+ *ABN*(08/29/20 5:37 AM)[facility] EhuxnzoLDHWBZEMEB0035-96-49 10:37:00Not Detected (08/29/20 5:37 AM)[facility] HermannCHLAMYDIA, GC, TV,PCR, IN XNNTO2436-25-73 15:38:00 Test Item Value Reference Range Interpretation Comments FT (test code = CHTR) Not detected (qualifier Not Detected N value) FT (test code = Not detected (qualifier Not Detected N NGONO) value) FT (test code = TRVG) Not detected (qualifier Not Detected N value) URINALYSIS WITH LLVHMWOHUID0143-66-81 10:57:00 Test Item Value Reference Range Interpretation Comments Color (test code = UCOLR) Dk. Yellow Clarity (test code = UCLAR) Hazy Glucose (test code = UGLUC) NEGATIVE NEGATIVE N Bilirubin (test code = UBILI) NEGATIVE NEGATIVE N Ketones (test code = UKET) NEGATIVE NEGATIVE N Specific [place] (test code = 1.025 1.005-1.030 A USPGR) [...]
--- NOTE | 2022-01-16 16:18 | ER ---
Nurse's Notes [facility] Name: Fawn Fleming Age: 66 yrs Sex: Female : 1955 Arrival Date: 01/16/2022 Time: 15:39 Bed 17 Private MD: Diagnosis: Muscle weakness (generalized) Presentation: 01/16 15:48 Chief complaint: Patient states: "I fell last night and again this morning, and I am hb here to see why." Denies injury. 15:49 Coronavirus screen: At this time, the client does not indicate any symptoms associated hb with coronavirus-19. Ebola Screen: No symptoms or risks identified at this time. Risk Assessment: Do you want to hurt yourself or someone else? Patient reports no desire to harm self or others. Onset of symptoms was January 16, 2022. 15:49 Method Of Arrival: Wheelchair hb 15:49 Acuity: BLAYNE 3 hb Historical: - Allergies: 15:50 Bactrim DS; hb 15:50 butorphanol tartrate; hb 15:50 Fentanyl; hb 15:50 Reglan; hb 15:50 Stadol; hb 15:50 sulfamethoxazole (bulk); hb 15:50 TRIMETHOPRIM; hb - Immunization history:: Adult Immunizations up to date. - Social history:: Smoking status: Patient denies any tobacco usage or history of. - Family history:: not pertinent. - Hospitalizations: : No recent hospitalization is reported. Screenin:00 Abuse screen: Denies threats or abuse. Denies injuries from another. jh6 16:00 Nutritional screening: No deficits noted. Tuberculosis screening: No symptoms or risk [facility] factors identified. Fall Risk None identified. Assessment: 16:00 General: Appears in no apparent distress. Behavior is calm, cooperative. jh6 16:00 Pain: Complains of pain in coccyx, left lower back and right lower back Pain currently jh6 is 5 out of 10 on a pain scale. Quality of pain is described as aching, crampy. Vital Signs: 15:49 BP 154 / 95; Pulse 57; Resp 16; Temp 97.1; Pulse Ox 96% on R/A; Weight 88.45 kg; Height hb 5 ft. 4 in. (162.56 cm); Pain 9/10; 15:49 Body Mass Index 33.47 (88.45 kg, 162.56 cm) ED Course: 15:39 Patient arrived in ED. rg4 15:50 Triage completed. hb 15:50 Arm band placed on. hb 15:55 Ramon Baker MD is Attending Physician. rn 16:00 Bed in low position. Call light in reach. 6 16:00 No provider procedures requiring assistance completed. jh6 16:35 Patient did not have IV access during this emergency room visit. 6 16:46 Karen Lo, RN is Primary Nurse. 6 Administered Medications: No medications were administered Medication: 16:00 VIS not applicable for this client. [facility] Outcome: 16:17 Discharge ordered by . rn 16:47 Discharged to home ambulatory. 6 16:47 Condition: good 16:47 Discharge instructions given to patient, Instructed on discharge instructions, follow up and referral plans. 16:48 Patient left the ED. [facility] Signatures: Ramon Baker MD MD rn Baxter, Heather, RN RN Polina Cartwright 4 Karen Lo, RN RN [facility]
--- NOTE | 2022-01-16 16:18 | EDPHYS ---
Physician Documentation [facility] Name: Fawn Fleming Age: 66 yrs Sex: Female : 1955 Arrival Date: 01/16/2022 Time: 15:39 Bed 17 Private MD: ED Physician Ramon Baker HPI: 01/16 16:09 This 66 yrs old Female presents to ER via Wheelchair with complaints of Frequent falls. rn 16:09 Pt reports frequent falls recently, fell again today, states back pain kicks in and rn spasms, then patient falls to ground. Denies injury from fall today. Just seen yesterday here and told to f/u with Dr. Landrum for neurology. Denies fever/vomiting/diarrhea/chest pain/abd pain/sob. . Onset: The symptoms/episode began/occurred today. Severity of symptoms: At their worst the symptoms were mild in the emergency department the symptoms have improved. The patient has experienced similar episodes in the past. The patient has been recently seen at the [facility] Emergency Department, yesterday. Historical: - Allergies: 15:50 Bactrim DS; hb 15:50 butorphanol tartrate; hb 15:50 Fentanyl; hb 15:50 Reglan; hb 15:50 Stadol; hb 15:50 sulfamethoxazole (bulk); hb 15:50 TRIMETHOPRIM; hb - Immunization history:: Adult Immunizations up to date. - Social history:: Smoking status: Patient denies any tobacco usage or history of. - Family history:: not pertinent. - Hospitalizations: : No recent hospitalization is reported. ROS: 16:09 Constitutional: Negative for fever, chills, and weight loss, Eyes: Negative for injury, rn pain, redness, and discharge, Neck: Negative for injury, pain, and swelling, Cardiovascular: Negative for chest pain, palpitations, and edema, Respiratory: Negative for shortness of breath, cough, wheezing, and pleuritic chest pain, Abdomen/GI: Negative for abdominal pain, nausea, vomiting, diarrhea, and constipation, Back: Negative for injury MS/Extremity: Negative for injury and deformity, Skin: Negative for injury, rash, and discoloration, Neuro: Negative for headache, weakness, numbness, tingling, and seizure. Exam: 16:09 Constitutional: This is a well developed, well nourished patient who is awake, alert, rn and in no acute distress. Head/Face: Normocephalic, atraumatic. Cardiovascular: Bradycardic, regular. No pulse deficits. Respiratory: No increased work of breathing, no retractions or nasal flaring. Abdomen/GI: Soft, non-tender Back: No spinal tenderness. No costovertebral tenderness. Full range of motion. Skin: Warm, dry with normal turgor. Normal color with no rashes, no lesions, and no evidence of cellulitis. MS/ Extremity: Pulses equal, no cyanosis. Neurovascular intact. Full, normal range of motion. Equal circumference. Neuro: Awake and alert, GCS 15, oriented to person, place, time, and situation. Cranial nerves II-XII grossly intact. Motor strength 5/5 in all extremities. Sensory grossly intact. Vital Signs: 15:49 BP 154 / 95; Pulse 57; Resp 16; Temp 97.1; Pulse Ox 96% on R/A; Weight 88.45 kg; Height hb 5 ft. 4 in. (162.56 cm); Pain 9/10; 15:49 Body Mass Index 33.47 (88.45 kg, 162.56 cm) hb MDM: 15:55 Patient medically screened. rn 16:14 Differential Diagnosis dehydration, chronic pain, back pain, radiculopathy. Data rn reviewed: vital signs, nurses notes, old medical records, and as a result, I will discharge patient. Counseling: I had a detailed discussion with the patient and/or guardian regarding: the historical points, exam findings, and any diagnostic results supporting the discharge/admit diagnosis, the need for outpatient follow up, to return to the emergency department if symptoms worsen or persist or if there are any questions or concerns that arise at home. Response to treatment: the patient's symptoms have markedly improved after treatment, and as a result, I will discharge patient. Special discussion: I discussed with the patient/guardian in detail that at this point there is no indication for admission to the hospital. It is understood, however, that if the symptoms persist or worsen the patient needs to return immediately for re-evaluation. ED course: NO acute changes, just seen yesterday with bloodwork, has UTI and on abx, has f/u with neurology. . Administered Medications: No medications were administered Disposition Summary: 01/16/22 16:17 Discharge Ordered Location: Home rn Problem: an ongoing problem rn Symptoms: have improved rn Condition: Stable rn Diagnosis - Muscle weakness (generalized) rn Followup: rn - With: Private Physician - When: As needed - Reason: Recheck today's complaints, Re-evaluation by your physician Discharge Instructions: - Discharge Summary Sheet rn - Weakness rn Forms: - Medication Reconciliation Form rn - Thank You Letter rn - Antibiotic ornamental painter - Prescription Opioid Use rn Signatures: Ramon Baker MD MD rn Baxter, Heather, RN RN
[2022-01-16 18:11] VITALS: BP 154/95; TEMP 97.1; O2SAT 96
== END 2022-01-16 16:48 | disposition home or self-care (01) ==
LOC: ER 15:36
DX: M62.81 Muscle weakness (generalized) (principal); Z88.1 Allergy status to other antibiotic agents; Z88.2 Allergy status to sulfonamides; Z88.5 Allergy status to narcotic agent; Z88.8 Allergy status to other drugs, medicaments and biological substances
CPT/HCPCS: 99281

== ENCOUNTER 2022-01-25 16:04 | Emergency (ER) | payer OTHER ==
--- OUTSIDE RECORDS SUMMARY | 2022-01-25 16:15 | XMS REPORT | Continuity of Care Document ---
:1955 Author Organization [facility] t Address [address] [place] [address] Care Team Providers Name Role Phone Urmila Rahman Primary Care Physician Mike Lund Attending Clinician Unavailable ELAN LIRA Attending Clinician Unavailable SANTIAGO CARDENAS Attending Clinician Unavailable Doctor Unassigned, [place] Attending Clinician Unavailable Bill GUO Attending Clinician Unavailable Bill Rose Attending Clinician [facility] Attending Clinician Unavailable Santiago Sanchez Attending Clinician Beverly Layton MD Attending Clinician Eliseo Arce MD Attending Clinician Caro lAnn BOTTLE CAPPING MACHINE OPERATOR, Sarai Lieberman Attending Clinician [phone] Prabhu SANCHEZ, Ashly Attending Clinician Unavailable [...] Policy Number Effective Date Expiration Date S [facility] [id number] 2012 STARPLUS OON 00:00:00 EXCEPT [facility] DUAL [id number] 2020 COMP HMO D SNP 00:00:00 MEDICAID OF [place] [id number] 2020 00:00:00 Problems Condition Condition Condition Status Onset Resolution Last Treating Co mments Source Name Details Category Date Date Treatment Clinician Date Gastropare Gastropare Disease Active Overview : Methodi sis sis 4-[address] 00:00: [facility] this [facility] 00 note l might be different from the original. Added automatic ally from request for surgery [id number] Dysphagia Dysphagia Disease Active Overview: Methodi 4-[address] 00:00: g of this [facility]osp[facility] 00 note l might be different from the original. 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 2020-10-15 Memoria PVI PVI 3-30 17:07:00 l ABLATION ABLATION 00:00: Patel soares W/ CARTO / W/ CARTO / 00 GA / T GA / T Active 08/19/2020 [facility] Food Food Disease Active 2019-05 [...] [facility] hoxazole 1-25 Clear 00:00: Garcia 00 [facility] trimetho DA Active SV [facility] prim 1- Clear 00:00: Garcia 00 [facility] codeine DA Active SV N/V [facility] 1-25 Clear 00:00: Garcia [facility] Metoclop Propensi Active [place] ramide ty [...] Date Stop Date Source Natural father [facility] Natural father Kidney disease Method ist [facility] mother [facility] Social History Social Habit Start Date Stop Date Quantity Comments Source History of tobacco Cigarette Smoker Buddhism use Hospital History SDOH Buddhism Alcohol Frequency Hospita l History SDOH Buddhism Alcohol Std Drinks Hospit al History SDLA Buddhism Alcohol Binge Hospital Exposure to 2021-12-02 2021-12-12 Not sure University SARS-CoV-2 (event) 00:00:00 23:54:00 [facility] Alcohol intake 2020-12-08 2020-12-08 Current drinker [facility]o dist 00:00:00 00:00:00 of alcohol Hospital (finding) Cigarettes smoked 2020-09-05 2020-09-[address] current (pack per 00:00:00 00:00:00 Hospita l day) - Reported Cigarette 2020-09-05 2020-09-05 Buddhism pack-years 00:00:00 00:00:00 Hospital Tobacco use and 2020-08-06 2020-08-06 Former smokeless Uni versity of exposure 00:00:00 00:00:00 tobacco user [facility] Alcohol Comment 2016-09-23 2016-09-23 rare Buddhism 00:00:00 00:00:00 Hospital Tobacco Comment 2015-02-14 2015-02-14 Smokes approx 1-2 Un iversity of 00:00:00 00:00:00 cigarettes per [facility] when she Branch smokes Sex Assigned At [birth year] [facility] 00:00:00 00:00:00 Smoking Status Start Date Stop Date Source Ex-smoker 2020-08-06 00:00:00 2020-08-06 00:00:00 [facility] Medications Ordered Filled Start Stop Current Ordering Indication Dosage Frequency Signature Comments Components Source Medication Medication Date Date Medication? Clinician (SIG) Name Name methocarbam No 500mg 500 mg, U nivers oL 12-13 Oral, ity of (ROBAXIN) 07:45: 06:35 ONCE[place] 500 [place] :00 dose, On Medic al mg [facility] 12/13/21 at 0245, Routine ketorolac No 30mg 30 mg, Unive rs (TORADOL) 12-13 Intramuscu ity of injection 07:45: 06:34 lar, ONCE, [place] 30 mg 00 :00 1 dose, On Medical [place] 12/13/21 at 0245, JOE naproxen 2022-0 Yes [id number] 500mg Take 1 U nivers (NAPROSYN) 7-24 tablet by ity of 500 mg 00:00: mouth in [place] tablet 00 the Medical morning Branch and 1 tablet in the evening. Take with meals. methocarbam 2022-0 Yes [id number] 500mg Take 1 Univers oL 500 mg 7-24 tablet by ity o f tablet 00:00: mouth 4 [place] ([facility]) Medical times [place] daily. naproxen 2022-0 Yes [id number] 500mg Take 1 U nivers (NAPROSYN) 7-24 tablet by ity of 500 mg 00:00: mouth in [place] tablet 00 the Medical morning Branch and 1 tablet in the evening. Take with meals. methocarbam 2022-0 Yes [id number] 500mg Take 1 Univers oL 500 mg 7-24 tablet by ity o f tablet 00:00: mouth 4 [place] [address] ([facility]) Medical times [place] daily. naproxen 2022-0 Yes [id number] 500mg Take 1 U nivers (NAPROSYN) 7-24 tablet by ity of 500 mg 00:00: mouth in [place] tablet 00 the Medical morning Branch and 1 tablet in the evening. Take with meals. methocarbam 2022-0 Yes [id number] 500mg Take 1 Univers oL 500 mg 7-24 tablet by ity o f tablet 00:00: mouth 4 [place] [address] ([facility]) Medical times [place] daily. hydralAZINE 2022-0 Yes 25mg Take 25 mg Univers (APRESOLINE 7-01 by mouth ity of ) 25 mg 08:47: daily. [address] Branch hydralAZINE 2022-0 Yes 25mg Take 25 mg Univers (APRESOLINE 7-01 by mouth ity of ) 25 mg 08:47: daily. [address] Branch hydralAZINE 2022-0 Yes 25mg Take 25 mg Univers (APRESOLINE 7-01 by mouth ity of ) 25 mg 08:47: daily. [address] hydralAZINE 2022-0 Yes 25mg Take 25 mg Univers (APRESOLINE 7-01 by mouth ity of ) 25 mg 08:47: daily. [address] buPROPion 2021-0 Yes [id number] 150mg Take 1 U nivers XL 4-12 tablet by ity of (WELLBUTRIN 00:00: mouth [place] XL) 150 mg 00 daily. Medical 24 hr Branch tablet busPIRone 2021-0 Yes [id number] 30mg Take 1 Un matt 30 mg 4-12 tablet by ity of tablet 00:00: mouth 2 (two) Medical times Branch daily. SERTraline 2021-0 Yes [id number] 200mg Take 2 Univers 100 mg 4-12 tablets by ity of tablet 00:00: mouth [place] 00 daily. Medical Branch buPROPion 2021-0 Yes [id number] 150mg Take 1 U nivers XL 4-12 tablet by ity of (WELLBUTRIN 00:00: mouth [place] XL) 150 mg 00 daily. Medical 24 hr Branch tablet busPIRone 2021-0 Yes [id number] 30mg Take 1 Un matt 30 mg 4-12 tablet by ity of tablet 00:00: mouth 2 (two) Medical times Branch daily. SERTraline 2021-0 Yes [id number] 200mg Take 2 Univers 100 mg 4-12 tablets by ity of tablet 00:00: mouth [place] 00 daily. Medical Branch buPROPion 2021-0 Yes [id number] 150mg Take 1 U nivers XL 4-12 tablet by ity of (WELLBUTRIN 00:00: mouth [place] XL) 150 mg 00 daily. Medical 24 hr Branch tablet busPIRone 2021-0 Yes [id number] 30mg Take 1 Un matt 30 mg 4-12 tablet by ity of tablet 00:00: mouth 2 (two) Medical times Branch daily. SERTraline 2021-0 Yes [id number] 200mg Take 2 Univers 100 mg 4-12 tablets by ity of tablet 00:00: mouth [place] 00 daily. Medical Branch buPROPion 2021-0 Yes [id number] 150mg Take 1 U nivers XL 4-12 tablet by ity of (WELLBUTRIN 00:00: mouth [place] XL) 150 mg 00 daily. Medical 24 hr Branch tablet busPIRone 2021-0 Yes [id number] 30mg Take 1 Un matt 30 mg 4-12 tablet by ity of tablet 00:00: mouth 2 [place] 00 (two) Medical times Branch daily. SERTraline 2021-0 Yes [id number] 200mg Take 2 Univers 100 mg 4-12 tablets by ity of tablet 00:00: mouth [place] 00 daily. Medical Branch raltegravir 2021-0 Yes [id number] 400mg Take 1 Univers (ISENTRESS) 3-28 tablet by ity of 400 mg 00:00: mouth 2 [place] tablet 00 (two) Medical times Branch daily. raltegravir 2021-0 Yes [id number] 400mg Take 1 Univers (ISENTRESS) 3-28 tablet by ity of 400 mg 00:00: mouth 2 [place] tablet 00 (two) Medical times Branch daily. raltegravir 2021-0 Yes [id number] 400mg Take 1 Univers (ISENTRESS) 3-28 tablet by ity of 400 mg 00:00: mouth 2 [place] tablet 00 (two) Medical times Branch daily. raltegravir 2021-0 Yes [id number] 400mg Take 1 Univers (ISENTRESS) 3-28 tablet by ity of 400 mg 00:00: mouth 2 [place] tablet 00 (two) Medical times Branch daily. raltegravir 2021-0 Yes [id number] 400mg Take 1 Univers (ISENTRESS) 3-28 tablet by ity of 400 mg 00:00: mouth 2 [place] tablet 00 (two) Medical times Branch daily. LORazepam 1 2021-0 Yes [id number] 1mg Take 1 Univers mg tablet 3-21 [...] 00 times a tablet day. buPROPion 2021-0 202- No [id number] 150mg Take 1 Univers XL 1-24 04-12 tablet by ity of (WELLBUTRIN 00:00: 00:00 [place] XL) 150 mg 00 :00 daily. Medical 24 hr Branch tablet busPIRone 2021- No [id number] 30mg Take 1 U nivers 30 mg 06-15-12 tablet by ity of tablet 00:00: 00:00 mouth 2 [place] 00 :00 (two) Medical times Branch daily. SERTraline 2021- No [id number] 200mg Take 2 Univers 100 mg 06-15-12 tablets by ity of tablet 00:00: 00:00 mouth [place] 00 :00 daily. Medical Branch emtricitabi Yes [id number] Take one Univers ne-tenofovi 1-20 po daily ity of r alafen 00:00: [place] (DESCOVY) 00 Medical tablet Branch emtricitabi Yes [id number] Take one Univers ne-tenofovi 1-20 po daily ity of r alafen 00:00: [place] (DESCOVY) 00 Medical tablet Branch emtricitabi Yes [id number] Take one Univers ne-tenofovi 1-20 po daily ity of r alafen 00:00: [place] (DESCOVY) 00 Medical tablet Branch emtricitabi Yes [id number] Take one Univers ne-tenofovi 1-20 po daily ity of r alafen 00:00: [place] (DESCOVY) 00 Medical tablet Branch emtricitabi Yes [id number] Take one Univers ne-tenofovi 1-20 po daily ity of r alafen 00:00: [place] (DESCOVY) 00 Medical tablet Branch metoprolol Yes [id number] Take 1 [facility] tartrate 7-26 tablet Health (Lopressor) 00:00: (100 mg 100 MG 00 total) by tablet mouth 2 (two) times a day AND 0.5 tablets (50 mg total) every night. metoprolol Yes [id number] Take 1 [place] tartrate 7-26 tablet Health (Lopressor) 00:00: (100 mg 100 MG 00 total) by tablet mouth 2 (two) times a day AND 0.5 tablets (50 mg total) every night. raltegravir 2021-0 Yes 400mg Q.5D Take 400 [...] (affected area in groin) hydrALAZINE Yes 50mg Q.[id number] Take 50 mg Methodi (APRESOLINE 7-19 [id number] mouth [address] ) 50 MG [...] a day as needed for headaches. albuterol 2021-0 Yes 1{puff} Q4H Inhale 1 M ethodi [...] area in groin) hydrALAZINE 2021-0 Yes 50mg Q.[id number] Take 50 mg Methodi (APRESOLINE 7-19 [id number] mouth 3 [facility] ) 50 MG [...] (affected area in groin) hydrALAZINE Yes 50mg Q.[id number] Take 50 mg Methodi (APRESOLINE 7-19 [id number] mouth 3 [facility] ) 50 MG [...] area in groin) hydrALAZINE 0 Yes 50mg Q.[id number] Take 50 mg Methodi (APRESOLINE 7-19 [id number] [address] mouth [address] [facility] ) 50 MG [...] Hospita tablet 25 daily. l nystatin-tr Yes [id number] Apply to [facility] iainolone 7-06 area(s) 3 ity of cream 00:00: (three) [place] 00 times Medical daily. Branch nystatin-tr 0 Yes [id number] Apply to [facility] iainolone 7-06 area(s) 3 ity of cream 00:00: (three) [place] 00 times Medical daily. Branch nystatin-tr 2020-0 Yes [id number] Apply to [facility] iamcinolone 7-06 area(s) 3 ity of cream 00:00: (three) [place] 00 times Medical daily. Branch nystatin-tr 2020-0 Yes [id number] Apply to [facility] iainolone 7-06 area(s) 3 ity of cream 00:00: (three) [place] 00 times Medical daily. Branch nystatin-tr 0 Yes [id number] Apply to [facility] iainolone 7-06 area(s) 3 ity of cream 00:00: (three) [place] 00 times Medical daily. Branch budesonide- 2020- No 1{puff} QD Inhale 1 Methodi formoteroL 6-25 06-[address] (SYMBICORT) 14:37: 00:00 morning. H ospita 160-4.5 02 :00 l mcg/actuati on inhaler hydrALAZINE Yes [id number] 50mg Q.[id number] Take 1 [facility] (Apresoline 6-11 [id number] tablet (50 Health ) 50 MG 00:00: 3D mg total) tablet 00 by mouth 3 (three) times a day. hydrALAZINE Yes [id number] 50mg Q.[id number] Take 1 [facility] (Apresoline 10-31 [id number] tablet (50 Health ) 50 MG 00:00: 3D mg total) tablet 00 by mouth 3 (three) times a day. Breztri 0 Yes [facility] Aerosphere 6-09 Health 160-9-4.8 00:00: MCG/ACT 00 aerosol Breztri 0 Yes [facility] Aerosphere 609 Health [...] % 00:00: ointment 00 nystatin 2020- No [id number] Q.25D Take 5 mL Methodi (MYCOSTATIN 10-06 [...] ia 4-10 (Same as: l 14:00: Norvasc) [place] 00 emtricitabi No Notes: Caesar lisa ne 200 MG / 4-10 (Same as: l tenofovir 14:00: Descovy) Herm ariel alafenamide 00 Non-formul 25 MG Oral nancy Tablet [Descovy] pantoprazol No Notes: Caesar lisa e 4-10 Tablet l 14:00: should not [place] 00 be chewed or crushed. (Same as: Protonix) Amiodarone No Notes: Memor ia 4-10 (Same as: l 14:00: Cordarone) [place] Amlodipine No Notes: Memor ia 4-10 (Same as: l 14:00: Norvasc) [place] emtricitabi No Notes: Caesar lisa ne 200 MG / 4-10 (Same as: l tenofovir 14:00: Descovy) Herm ariel alafenamide 00 Non-formul 25 MG Oral nancy Tablet [Descovy] Sertraline No Notes: Memor ia 4-10 (Same as: l 14:00: Zoloft) [place] Sertraline No Notes: Memor ia 4-10 (Same as: l 14:00: Zoloft) [place] pantoprazol No Notes: Caesar lisa e 4-10 Tablet l 14:00: should not [place] 00 be chewed or crushed. (Same as: Protonix) Amiodarone No Notes: Memor ia 4-10 (Same as: l 14:00: Cordarone) [place] Amlodipine No Notes: Memor ia 4-10 (Same [...] ia 4-10 (Same as: l 14:00: Cordarone) [place] Amlodipine No Notes: Memor ia 4-10 (Same as: l 14:00: Norvasc) [place] emtricitabi No Notes: Caesar lisa ne 200 MG / 4-10 (Same as: l tenofovir 14:00: Descovy) Herm ariel alafenamide 00 Non-formul 25 MG Oral nancy Tablet [Descovy] Sertraline No Notes: Memor ia 4-10 (Same as: l 14:00: Zoloft) [place] pantoprazol No Notes: Caesar lisa e 4-10 Tablet l 14:00: should not [place] 00 be chewed or crushed. (Same as: Protonix) Amiodarone No Notes: Memor ia 4-10 (Same as: l 14:00: Cordarone) [place] Amlodipine No Notes: Memor ia 4-10 (Same as: l 14:00: Norvasc) [place] emtricitabi No Notes: Caesar lisa ne 200 MG / 4-10 (Same as: l tenofovir 14:00: Descovy) Herm ariel alafenamide 00 Non-formul 25 MG Oral nancy Tablet [Descovy] Sertraline No Notes: Memor ia 4-10 (Same as: l 14:00: Zoloft) [place] 00 pantoprazol No Notes: Caesar lisa e 4-10 Tablet l 14:00: should not [place] 00 be chewed or crushed. (Same as: Protonix) Amiodarone No Notes: Memor ia 4-10 (Same as: l 14:00: Cordarone) [place] 00 Amlodipine No Notes: Memor ia 4-10 (Same as: l 14:00: Norvasc) [place] emtricitabi No Notes: Caesar lisa ne 200 MG / 4-10 (Same as: l tenofovir 14:00: Descovy) Herm ariel alafenamide 00 Non-formul 25 MG Oral nancy Tablet [Descovy] Sertraline No Notes: Memor ia 4-10 (Same as: l 14:00: Zoloft) pantoprazol No Notes: Caesar lisa e 4-10 Tablet l 14:00: should not [place] 00 be chewed or crushed. (Same as: [...] M emoria 4-10 interfere l 02:00: w/enteral [place] 00 feeds - Take 1 hr before [...] Memoria 4-10 Same as: l 02:00: Eliquis [place] Hydralazine No Notes: Caesar lisa Hydrochlori 4-10 (Same as: l de 50 MG 02:00: Apresoline Her mitchell Oral Tablet 00 ) May interfere w/enteral feedings Take With Food Sucralfate No Notes: May M emoria 4-10 interfere l 02:00: w/enteral [place] 00 feeds - Take 1 hr before [...] Memoria 4-10 Same as: l 02:00: Eliquis [place] 00 Hydralazine No Notes: Caesar lisa Hydrochlori 4-10 (Same as: l de 50 MG 02:00: Apresoline Her mit[place] Oral Tablet 00 ) May interfere w/enteral feedings Take With Food Sucralfate No Notes: May M emoria 4-10 interfere l 02:00: w/enteral [place] 00 feeds - Take 1 hr before or 2 hr after antacids, dairy pdt, meals & minerals - On empty stomach. For patients unable to swallow tablet, dissolve in 10mL - 30mL of water or juice and stir before giving. (Same As: Carafate) Saline No Notes: Memoria Flush 0.9% 4-10 (Same as: l 02:00: BD [place] 00 Posiflush) Eliquis No Notes: Memoria 4-10 Same as: l 02:00: Eliquis [place] Hydralazine No Notes: Caesar lisa Hydrochlori 4-10 (Same as: l de 50 MG 02:00: Apresoline Her [place] Oral Tablet 00 ) May interfere w/enteral feedings Take With Food Sucralfate No Notes: May M emoria 4-10 interfere l 02:00: w/enteral [place] 00 feeds - Take 1 hr before or 2 hr after antacids, dairy pdt, meals & minerals - On empty stomach. For patients unable to swallow tablet, dissolve in 10mL - 30mL of water or juice and stir before giving. (Same As: Carafate) Saline No Notes: Memoria Flush 0.9% 4-10 (Same as: l 02:00: BD [place] 00 Posiflush) Eliquis No Notes: Memoria 4-10 Same as: l 02:00: Eliquis [place] Hydralazine No Notes: Caesar lisa Hydrochlori 4-10 (Same as: l de 50 MG 02:00: Apresoline Her [place] Oral Tablet 00 ) May interfere w/enteral feedings Take With Food Sucralfate No Notes: May M emoria 4-10 interfere l 02:00: w/enteral [place] 00 feeds - Take 1 hr before [...] not exceed l #3 00:12: 4gm/day of [place] acetaminop hen. (Same as: Tylenol with Codeine [...] not exceed l #3 00:12: 4gm/day of [place] 00 acetaminop hen. (Same as: Tylenol with Codeine # 3) acetaminoph No Notes: Do M emoria en-codeine 4-10 not exceed l #3 00:12: 4gm/day of [place] 00 acetaminop hen. (Same as: Tylenol with Codeine # 3) Buspirone No Notes: Memori a - (Same As: l 22:00: BuSpar) Lisinopril 0 No 40 mg, 1 Mem oria 4-09 tab, l 22:00: Route: PO, [place] 00 Drug form: TAB, BID, Dosing Weight [...] 0 Buspirone 0 No Notes: Memori a - (Same As: [...] tartrate -09 tab, l 22:00: Route: PO, [place] Drug form: TAB, BID, Dosing Weight 97.273, [...] oria -09 tab, l 22:00: Route: PO, [place] 00 Drug form: TAB, BID, Dosing Weight 97.273, kg, Start date: 08/29/20 17:00:00 CDT, Duration: 30 day, Stop date: 09/28/20 9:00:00 CDT metoprolol 1-0 No 100 mg, 1 Me moria tartrate 4-09 tab, l 22:00: Route: PO, [place] Drug form: TAB, BID, Dosing Weight 97.273, [...] oria 4-09 tab, l 22:00: Route: PO, [place] Drug form: TAB, BID, Dosing Weight 97.273, kg, Start date: 08/29/20 17:00:00 CDT, Duration: 30 day, Stop date: 09/28/20 9:00:00 CDT metoprolol 1-0 No 100 mg, 1 Me moria tartrate 4-09 tab, l 22:00: Route: PO, [place] 00 Drug form: TAB, BID, Dosing Weight [...] Notes: Memoria 4-09 (Same l 17:07: as:MORPhin [place] 00 e Sulfate) Morphine No Notes: Memoria 4-09 (Same l 17:07: as:MORPhin [place] 00 e Sulfate) Morphine No Notes: Memoria 4-09 (Same l 17:07: as:MORPhin [place] 00 e Sulfate) Morphine No Notes: Memoria 4-09 (Same l 17:07: as:MORPhin [place] 00 e Sulfate) Morphine No Notes: Memoria 4-09 (Same l 17:07: as:MORPhin [place] 00 e Sulfate) Morphine No Notes: Memoria 4-09 (Same l 17:07: as:MORPhin [place] 00 e Sulfate) Morphine No Notes: Memoria [...] day, Stop date: 09/27/20 11:00:00 CDT, 0 fentaNYL No Route: IV, Mem oria (ANES) [...] tab, PO, l oral 15:27: Daily, # [place] enteric 00 30 tab, 0 coated Refill(s), tablet Pharmacy: [facility] 149, 162.56, cm, 08/29/20 5:30:00 CDT, Height, 97.273, kg, 08/29/20 5:30:00 CDT, Weight pantoprazol 2021-0 Yes 40 mg = 1 M emoria e 40 mg 4-09 tab, PO, l oral 15:27: Daily, # [place] enteric 00 30 tab, 0 coated Refill(s), tablet Pharmacy: [facility] 149, 162.56, cm, 08/29/20 5:30:00 CDT, Height, 97.273, kg, 08/29/20 5:30:00 CDT, Weight pantoprazol 1-0 Yes 40 mg = 1 M emoria e 40 mg 4-09 tab, PO, l oral 15:27: Daily, # [place] enteric 00 30 tab, 0 coated Refill(s), tablet Pharmacy: [facility] 149, 162.56, cm, 08/29/20 5:30:00 CDT, Height, 97.273, kg, 08/29/20 5:30:00 CDT, Weight pantoprazol 2021-0 Yes 40 mg = 1 M emoria e 40 mg 4-09 tab, PO, l oral 15:27: Daily, # [place] enteric 00 30 tab, 0 coated Refill(s), tablet Pharmacy: [facility] 149, 162.56, cm, 08/29/20 5:30:00 CDT, Height, 97.273, kg, 08/29/20 5:30:00 CDT, Weight pantoprazol 2021-0 Yes 40 mg = 1 M emoria e 40 mg 4-09 tab, PO, l oral 15:27: Daily, # [place] enteric 00 30 tab, 0 coated Refill(s), tablet Pharmacy: [facility] 149, 162.56, cm, 08/29/20 5:30:00 CDT, Height, 97.273, kg, 08/29/20 5:30:00 CDT, Weight pantoprazol 1-0 Yes 40 mg = 1 M emoria e 40 mg 4-09 tab, PO, l oral 15:27: Daily, # [place] enteric 00 30 tab, 0 coated Refill(s), tablet Pharmacy: [place] [address], 162.56, cm, 08/29/20 5:30:00 CDT, Height, 97.273, kg, 08/29/20 5:30:00 CDT, Weight pantoprazol 1-0 Yes 40 mg = 1 M emoria e 40 mg 4-09 tab, PO, l oral 15:27: Daily, # [place] enteric 00 30 tab, 0 coated Refill(s), tablet Pharmacy: [place] [address], 162.56, cm, 08/29/20 5:30:00 CDT, Height, 97.273, [...] Skylar nn 00 tab, 0 Refill(s), Pharmacy: [place] [address], 162.56, cm, 08/29/20 5:30:00 CDT, Height, 97.273, kg, 08/29/20 5:30:00 CDT, Weight pantoprazol 1-0 No 40 mg = 1 M emoria e 40 mg 4-09 tab, PO, l oral 15:26: Daily, # [place] enteric 00 30 tab, 0 coated Refill(s) tablet sucralfate 1-0 Yes 1 gm = 1 Mem oria 1 g oral 4-09 tab, PO, l tablet 15:26: Q12H, # 28 Skylar nn 00 tab, 0 Refill(s), Pharmacy: [facility] 149, 162.56, cm, 08/29/20 [...] nn 00 tab, 0 Refill(s), Pharmacy: [facility] 149, 162.56, cm, 08/29/20 5:30:00 CDT, Height, 97.273, kg, 08/29/20 5:30:00 CDT, Weight pantoprazol 2020-0 No 40 mg = 1 M emoria e 40 mg 4-09 tab, PO, l oral 15:26: Daily, # [place] enteric 00 30 tab, 0 coated Refill(s) tablet sucralfate 2020-0 Yes 1 gm = 1 Mem oria 1 g oral 4-09 tab, PO, l tablet 15:26: Q12H, # 28 Skylar nn 00 tab, 0 Refill(s), Pharmacy: [facility] 149, 162.56, cm, 08/29/20 5:30:00 CDT, Height, 97.273, kg, 08/29/20 5:30:00 CDT, Weight pantoprazol 2020-0 No 40 mg = 1 M emoria e 40 mg 4-09 tab, PO, l oral 15:26: Daily, # [place] enteric 00 30 tab, 0 coated Refill(s) tablet sucralfate 2020-0 Yes 1 gm = 1 Mem oria 1 g oral 4-09 tab, PO, l tablet 15:26: Q12H, # 28 Skylar nn 00 tab, 0 Refill(s), Pharmacy: [facility] 149, 162.56, cm, 08/29/20 [...] nn 00 tab, 0 Refill(s), Pharmacy: [facility] 149, 162.56, cm, 08/29/20 5:30:00 CDT, Height, 97.273, kg, 08/29/20 5:30:00 CDT, Weight pantoprazol No 40 mg = 1 M emoria e 40 mg 4-09 tab, PO, l oral 15:26: Daily, # [place] enteric 00 30 tab, 0 coated Refill(s) tablet sucralfate Yes 1 gm = 1 Mem oria 1 g oral 4-09 tab, PO, l tablet 15:26: Q12H, # 28 Skylar nn 00 tab, 0 Refill(s), Pharmacy: [facility] 149, 162.56, cm, 08/29/20 5:30:00 CDT, Height, 97.273, kg, 08/29/20 5:30:00 CDT, Weight Saline No Notes: Memoria Flush 0.9% 4-09 (Same as: l 15:25: BD [place] 00 Posiflush) Lorazepam No Notes: Memori a 4-09 (Same as: l 15:25: Ativan) Saline No Notes: [facility]oria Flush 0.9% 4-09 (Same as: l 15:25: BD [place] 00 Posiflush) Lorazepam No Notes: Memori a 4-09 (Same as: l 15:25: Ativan) [place] Saline No Notes: Memoria Flush 0.9% 4-09 (Same as: l 15:25: BD [place] 00 Posiflush) Saline No Notes: Memoria Flush 0.9% 4-09 (Same as: l 15:25: BD [place] 00 Posiflush) Lorazepam No Notes: Memori a 4-09 (Same as: l 15:25: Ativan) [place] Lorazepam No Notes: Memori a 4-09 (Same as: l 15:25: Ativan) [place] 00 Saline No Notes: Memoria Flush 0.9% 4-09 (Same as: l 15:25: BD [place] Posiflush) Lorazepam No Notes: Memori a 4-09 (Same as: l 15:25: Ativan) [place] 00 Saline No Notes: Memoria Flush 0.9% 4-09 (Same as: l 15:25: BD [place] Posiflush) Lorazepam No Notes: Memori a 4-09 (Same as: l 15:25: Ativan) [place] 00 Saline No Notes: Memoria Flush 0.9% [...] Memori a 08-29 Route: l 14:01: IVP, [place] 00 Q5Min, Dosing Weight 97.273, kg, PRN [...] oria ne 08-29 Route: l 14:01: IVP, [place] 00 Q5Min, Dosing Weight 97.273, kg, PRN Pain Score 7-10, Start date: 08/29/20 9:01:00 CDT, Duration: 4 doses or times, Stop date: Limited # of times Flumazenil 1-0 No 0.2 mg, Caesar lisa 08-29 Route: l 14:01: IVP, PRN, [place] 00 Dosing Weight 97.273, kg, PRN Benzodiaze pine Reversal, Initial dose, Start date: 08/29/20 9:01:00 CDT, Duration: 30 day, Stop date: 09/28/20 9:00:00 CDT Naloxone 2021-0 No 0.4 mg, Memori a 08-29 Route: l 14:01: IVP, [place] 00 Q2MIN, Dosing Weight 97.273, kg, PRN Narcotic Reversal, Start date: 08/29/20 9:01:00 CDT, Duration: 8 doses or times, Stop date: Limited # of times Ondansetron 2021-0 No 4 mg, [facility] ia 08-29 Route: l 14:01: IVP, ONCE, [place] 00 Dosing Weight 97.273, kg, PRN Nausea & Vomiting, Start date: 08/29/20 9:01:00 CDT Labetalol 2021-0 No 10 mg, Mem[facility] a 08-29 Route: l 14:01: IVP, [place] 00 Q5Min, Dosing Weight 97.273, kg, PRN Elevated BP, Start date: 08/29/20 9:01:00 CDT, Duration: 5 doses or times, Stop date: Limited # of times Acetaminoph 2021-0 No 1,000 mg, M emoria en 08-29 Route: PO, l 14:01: Drug form: [place] 00 TAB, ONCE, Dosing Weight 97.273, kg, [...] oria ne 08-29 Route: l 14:01: IVP, [place] 00 Q5Min, Dosing Weight 97.273, kg, PRN [...] Memori a 08-29 Route: l 14:01: IVP, [place] 00 Q2MIN, Dosing Weight 97.273, kg, PRN Narcotic Reversal, Start date: 08/29/20 9:01:00 CDT, Duration: 8 doses or times, Stop date: Limited # of times Ondansetron 1-0 No 4 mg, [facility] 08-29 Route: l 14:01: IVP, ONCE, [place] 00 Dosing Weight 97.273, kg, PRN Nausea [...] oria ne 08-29 Route: l 14:01: IVP, [place] 00 Q5Min, Dosing Weight 97.273, kg, PRN Pain Score 7-10, Start date: 08/29/20 9:01:00 CDT, Duration: 4 doses or times, Stop date: Limited # of times Flumazenil 2020-0 No 0.2 mg, Caesar lisa 08-29 Route: l 14:01: IVP, PRN, [place] 00 Dosing Weight 97.273, kg, PRN Benzodiaze pine Reversal, Initial dose, Start date: 08/29/20 9:01:00 CDT, Duration: 30 day, Stop date: 09/28/20 9:00:00 CDT Naloxone 1-0 No 0.4 mg, Memori a 08-29 Route: l 14:01: IVP, [place] 00 Q2MIN, Dosing Weight 97.273, kg, PRN Narcotic Reversal, Start date: 08/29/20 9:01:00 CDT, Duration: 8 doses or times, Stop date: Limited # of times Ondansetron 1-0 No 4 mg, [facility] 08-29 Route: l 14:01: IVP, ONCE, [place] 00 Dosing Weight 97.273, kg, PRN Nausea & Vomiting, Start date: 08/29/20 9:01:00 CDT Labetalol 2021-0 No 10 mg, Mem[facility] a 08-29 Route: l 14:01: IVP, [place] 00 Q5Min, Dosing Weight 97.273, kg, PRN Elevated BP, Start date: 08/29/20 9:01:00 CDT, Duration: 5 doses or times, Stop date: Limited # of times Acetaminoph 2021-0 No 1,000 mg, M emoria en 08-29 Route: PO, l 14:01: Drug form: [place] 00 TAB, ONCE, Dosing Weight 97.273, kg, [...] Memori a 08-29 Route: l 14:01: IVP, [place] 00 Q5Min, Dosing Weight 97.273, kg, PRN Elevated BP, Start date: 08/29/20 9:01:00 CDT, Duration: 5 doses or times, Stop date: Limited # of times Acetaminoph 2021-0 No 1,000 mg, M emoria en 08-29 Route: PO, l 14:01: Drug form: [place] 00 TAB, ONCE, Dosing Weight 97.273, kg, [...] Memori a 08-29 Route: l 14:01: IVP, [place] 00 Q2MIN, Dosing Weight 97.273, kg, PRN [...] ia 08-29 Route: l 14:01: IVP, ONCE, [place] 00 Dosing Weight 97.273, kg, PRN Nausea & Vomiting, Start date: 08/29/20 9:01:00 CDT Naloxone 2021-0 No 0.4 mg, [facility] a 08-29 Route: l 14:01: IVP, [place] 00 Q2MIN, Dosing Weight 97.273, kg, PRN Narcotic Reversal, Start date: 08/29/20 9:01:00 CDT, Duration: 8 doses or times, Stop date: Limited # of times Ondansetron 1-0 No 4 mg, [facility] 08-29 Route: l 14:01: IVP, ONCE, [place] 00 Dosing Weight 97.273, kg, PRN Nausea & Vomiting, Start date: 08/29/20 9:01:00 CDT Labetalol 1-0 No 10 mg, Memori a 08-29 Route: l 14:01: IVP, [place] 00 Q5Min, Dosing Weight 97.273, kg, PRN [...] lisa 08-29 Route: l 14:01: IVP, PRN, [place] 00 Dosing Weight 97.273, kg, PRN Benzodiaze [...] Memori a 08-29 Route: l 14:01: IVP, [place] 00 Q5Min, Dosing Weight 97.273, kg, PRN Elevated BP, Start date: 08/29/20 9:01:00 CDT, Duration: 5 doses or times, Stop date: Limited # of times Acetaminoph 1-0 No 1,000 mg, M emoria en 08-29 Route: PO, l 14:01: Drug form: [place] 00 TAB, ONCE, Dosing Weight 97.273, kg, [...] oria ne 08-29 Route: l 14:01: IVP, [place] 00 Q5Min, Dosing Weight 97.273, kg, PRN [...] Memori a 08-29 Route: l 14:01: IVP, [place] 00 Q2MIN, Dosing Weight 97.273, kg, PRN [...] ONCE Stop date: 08/29/20 8:52:00 CDT rocuronium 0 [...] 08-29 Drug form: l 13:42: INJ, ONCE, [place] 00 Stop date: 08/29/20 8:42:00 CDT norepinephr [...] Drug form: l 10 13:15: INJ, Start [facility] microgram 00 date: 08/29/20 8:15:00 CDT, Stop [...] Drug form: l 10 13:15: INJ, Start [facility] microgram 00 date: 08/29/20 8:15:00 CDT, Stop [...] 4-09 Total l 0.9% IV 12:30: Volume: [place] (ANES) 1000 00 1,000, mL Start date: 08/29/20 7:30:00 CDT, Stop date: 08/29/20 8:30:00 CDT Sodium 2021-0 No Route: IV, [facility] Chloride 4-09 Total l 0.9% IV 12:30: Volume: [place] (ANES) 1000 00 1,000, mL Start date: [...] 4-09 Total l 0.9% IV 12:30: Volume: [place] (ANES) 1000 00 1,000, mL Start date: 08/29/20 7:30:00 CDT, Stop date: 08/29/20 8:30:00 CDT Sodium 2021-0 No Route: IV, [facility] Chloride 4-09 Total l 0.9% IV 12:30: Volume: [place] (ANES) 1000 00 1,000, mL Start date: [...] PO, l Hydrochlori 11:42: Q24H, # 30 [place] de 150 MG 00 tab, 0 Extended Refill(s) Release Tablet 24 HR 0 Yes 150 mg = 1 [facility] Bupropion 4-09 tab, PO, l Hydrochlori 11:42: Q24H, # 30 [facility] de 150 MG 00 tab, 0 Extended Refill(s) Release Tablet 24 HR Yes 150 mg = 1 [facility] Bupropion 4-09 tab, PO, l Hydrochlori 11:42: Q24H, # 30 [place] de 150 MG 00 tab, 0 Extended Refill(s) Release Tablet 24 HR 0 Yes 150 mg = 1 [facility] Bupropion 4-09 tab, PO, l Hydrochlori 11:42: Q24H, # 30 [facility] de 150 MG 00 tab, 0 Extended Refill(s) Release Tablet 24 HR 0 Yes 150 mg = 1 [facility] Bupropion 4-09 tab, PO, l Hydrochlori 11:42: Q24H, # 30 [place] de 150 MG 00 tab, 0 Extended [...] 4- Q12H, tab, l Tablet 11:41: 0 [place] [Eliquis] 00 Refill(s), For Atrial Fibrilatio n apixaban 2020-0 Yes 5 mg, PO, Me moria MG Oral 4- Q12H, tab, l Tablet 11:41: 0 [place] [Eliquis] 00 Refill(s), For Atrial Fibrilatio n apixaban 5 2020-0 Yes 5 mg, PO, Me moria MG Oral 4-09 Q12H, tab, l Tablet 11:41: 0 [place] [Eliquis] 00 Refill(s), For Atrial Fibrilatio n apixaban 5 2020-0 Yes 5 mg, PO, Me moria MG Oral 4-09 Q12H, tab, l Tablet 11:41: 0 [facility] [Eliquis] 00 Refill(s), For Atrial Fibrilatio n AMIODarone Yes 200 mg = 1 M emoria 200 mg oral 4-09 tab, PO, l tablet 11:38: Daily, # [place] 00 90 tab, 3 Refill(s) AMIODarone Yes 200 mg = 1 M em[facility] 200 mg oral 4-09 tab, PO, l tablet 11:38: Daily, # [facility] 00 90 tab, 3 Refill(s) AMIODarone Yes 200 mg = 1 M emoria 200 mg oral 4-09 tab, PO, l tablet 11:38: Daily, # [place] 00 90 tab, 3 Refill(s) AMIODarone 0 Yes 200 mg = 1 M [facility] 200 mg oral 4-09 tab, PO, l tablet 11:38: Daily, # [place] 00 90 tab, 3 Refill(s) AMIODarone 0 Yes 200 mg = 1 M emoria 200 mg oral 4-09 tab, PO, l tablet 11:38: Daily, # [facility] 00 90 tab, 3 Refill(s) AMIODarone Yes 200 mg = 1 M [facility] 200 mg oral 4-09 tab, PO, l tablet 11:38: Daily, # [place] 00 90 tab, 3 Refill(s) AMIODarone 0 [...] it y of mg tablet 08:18: (two) [place] 30 times Medical daily. Branch amiodarone Yes [...] 00:00: [place] on inhaler [facility] albuterol Yes albuterol [...] tablet 00 (two) times a day. DESCOVY 2017-0 Yes 1{tbl} QD Take 1 [facility]-25 mg 3-[address] [facility] daily. l DESCOVY 2017-0 Yes 1{tbl} QD Take 1 [facility]-25 mg 3-[address] [facility] 00 daily. l DESCOVY 2017-0 Yes 1{tbl} QD Take 1 [facility] 200-25 mg 3-[address] tablet [facility] 00 daily. l DESCOVY 2017-0 Yes 1{tbl} QD Take 1 [facility] 200-25 mg 3-[address] tablet [facility] 00 daily. l ISENTRESS 2017- Yes 400mg Q.5D Take 400 [facility] 400 mg 3-[address] tablet 00:00: [facility] 00 (two) l times a day. ISENTRESS 2017-0 Yes 400mg Q.5D Take 400 [facility] 400 mg 3-[address] tablet 00:00: [facility] 00 (two) l times a day. ISENTRESS 2017-0 Yes 400mg Q.5D Take 400 [facility] 400 mg 3-[address] tablet 00:00: [facility] 00 (two) l times a day. ISENTRESS 20170 Yes 400mg Q.5D Take 400 [facility] 400 mg 3-[address] tablet 00:00: [facility] 00 (two) l times a day. Immunizations Ordered Filled Immunization Date Status Comments [facility] e Immunization Name Name PEG COVID-19 2020-07-23 Completed [facility] MRNA VACCINATION 00:00:00 [facility] PFIZER COVID-19 2020-07-23 Completed [facility] MRNA VACCINATION 00:00:00 [facility] PFIZER COVID-19 2020-07-23 Completed [facility] MRNA VACCINATION 00:00:00 [facility] PFIZER COVID-19 2020-07-23 Completed [facility] MRNA VACCINATION 00:00:00 [facility] PFIZER COVID-19 2020-07-02 Completed [facility] MRNA VACCINATION 00:00:00 [facility] PFIZER COVID-19 2020-07-02 Completed [facility] MRNA VACCINATION 00:00:00 [facility] PFIZER COVID-19 2020-07-02 Completed [facility] MRNA VACCINATION 00:00:00 Hospital PFIZER COVID-19 2020-07-02 Completed [facility] MRNA VACCINATION 00:00:00 [facility] Influenza Virus 2017-03-08 Completed Universit y of Vaccine 00:00:00 [facility] Influenza Virus 2017-03-08 Completed Universit y of Vaccine 00:00:00 [facility] Influenza Virus 2017-03-08 Completed Universit y of Vaccine 00:00:00 [facility] Influenza Virus 2017-03-08 Completed Universit y of Vaccine 00:00:00 [facility] Influenza Virus 2017-03-08 Completed Universit y of Vaccine 00:00:00 [facility] Influenza Virus 2014-01-30 Completed Universit y of Vaccine (3+ yrs) 00:00:00 [facility] Pneumococcal 13 2014-01-30 Completed Universit y of Conjugate, PCV13 00:00:00 [facility] dical (Prevnar 13) [place] Influenza Virus 2014-01-30 Completed Universit y of Vaccine (3+ yrs) 00:00:00 [facility] Pneumococcal 13 2014-01-30 Completed Universit y of Conjugate, PCV13 00:00:00 [facility] dical (Prevnar 13) Branch Influenza Virus 2014-01-30 Completed Universit y of Vaccine (3+ yrs) 00:00:00 [facility] dical Branch Pneumococcal 13 2014-01-30 Completed Universit y of Conjugate, PCV13 00:00:00 [facility] dical (Prevnar 13) Branch Influenza Virus 2014-01-30 Completed Universit y of Vaccine (3+ yrs) 00:00:00 [facility] dical Branch Pneumococcal 13 2014-01-30 Completed Universit y of Conjugate, PCV13 00:00:00 [facility] dical (Prevnar 13) Branch Influenza Virus 2014-01-30 Completed Universit y of Vaccine (3+ yrs) 00:00:00 [facility] dical Branch Pneumococcal 13 2014-01-30 Completed Universit y of Conjugate, PCV13 00:00:00 [facility] dical (Prevnar 13) Branch Pneumococcal 2012-02-16 Completed University o f Polysaccharide, 00:00:00 [facility] PPSV23 (PNEUMOVAX) Branch Influenza Virus 2012-02-16 Completed Universit y of Vaccine 00:00:00 [facility] PPD (TB) 2012-02-16 Completed University of 00:00:00 [facility] Pneumococcal 2012-02-16 Completed University o f Polysaccharide, 00:00:00 [place] [facility] PPSV23 (PNEUMOVAX) Branch Influenza Virus 2012-02-16 Completed Universit y of Vaccine 00:00:00 [facility] PPD (TB) 2012-02-16 Completed University of 00:00:00 [facility] Pneumococcal 2012-02-16 Completed University o f Polysaccharide, 00:00:00 [place] [facility] PPSV23 (PNEUMOVAX) Branch Influenza Virus 2012-02-16 Completed Universit y of Vaccine 00:00:00 [facility] PPD (TB) 2012-02-16 Completed University of 00:00:00 [facility] Pneumococcal 2012-02-16 Completed University o f Polysaccharide, 00:00:00 [place] [facility] PPSV23 (PNEUMOVAX) Branch Influenza Virus 2012-02-16 Completed Universit y of Vaccine 00:00:00 [facility] PPD (TB) 2012-02-16 Completed University of 00:00:00 [facility] Pneumococcal 2012-02-16 Completed University o f Polysaccharide, 00:00:00 [place] [facility] PPSV23 (PNEUMOVAX) Branch Influenza Virus 2012-02-16 Completed Universit y of Vaccine 00:00:00 [facility] PPD (TB) 2012-02-16 Completed University of 00:00:00 [facility] Hep B, Adol or Pedi 2011-09-01 Completed Unive rsity of Dosage 00:00:00 [facility] Hep B, Adol or Pedi 2011-09-01 Completed Unive rsity of Dosage 00:00:00 [facility] Branch Hep B, Adol or Pedi 2011-09-01 Completed Unive rsity of Dosage 00:00:00 [facility] Hep B, Adol or Pedi 2011-09-01 Completed Unive rsity of Dosage 00:00:00 [facility] Hep B, Adol or Pedi 2011-09-01 Completed Unive rsity of Dosage 00:00:00 [facility] Hep B, Adol or Pedi 2011-03-17 Completed Unive rsity of Dosage 00:00:00 [facility] Hep B, Adol or Pedi 2011-03-17 Completed Unive rsity of Dosage 00:00:00 [facility] Hep B, Adol or Pedi 2011-03-17 Completed Unive rsity of Dosage 00:00:00 [facility] Hep B, Adol or Pedi 2011-03-17 Completed Unive rsity of Dosage 00:00:00 [facility] Branch Hep B, Adol or Pedi 2011-03-17 Completed Unive rsity of Dosage 00:00:00 [facility] Influenza Virus 2011-02-10 Completed Universit y of Vaccine 00:00:00 [facility] Hep B, Adol or Pedi 2011-02-10 Completed Unive rsity of Dosage 00:00:00 [facility] Influenza Virus 2011-02-10 Completed Universit y of Vaccine 00:00:00 [facility] Hep B, Adol or Pedi 2011-02-10 Completed Unive rsity of Dosage 00:00:00 [facility] Influenza Virus 2011-02-10 Completed Universit y of Vaccine 00:00:00 [facility] Hep B, Adol or Pedi 2011-02-10 Completed Unive rsity of Dosage 00:00:00 [facility] Influenza Virus 2011-02-10 Completed Universit y of Vaccine 00:00:00 [facility] Hep B, Adol or Pedi 2011-02-10 Completed Unive rsity of Dosage 00:00:00 [facility] Influenza Virus 2011-02-10 Completed Universit y of Vaccine 00:00:00 [facility] Hep B, Adol or Pedi 2011-02-10 Completed Unive rsity of Dosage 00:00:00 [facility] PPD (TB) 2010-11-18 Completed University of 00:00:00 [facility] TDAP (ADACEL) 2010-11-18 Completed University of VACCINE 00:00:00 [facility] PPD (TB) 2010-11-18 Completed University of 00:00:00 [facility] TDAP (ADACEL) 2010-11-18 Completed University of VACCINE 00:00:00 [facility] PPD (TB) 2010-11-18 Completed University of 00:00:00 [facility] TDAP (ADACEL) 2010-11-18 Completed University of VACCINE 00:00:00 [facility] PPD (TB) 2010-11-18 Completed University of 00:00:00 [facility] TDAP (ADACEL) 2010-11-18 Completed University of VACCINE 00:00:00 [facility] PPD (TB) 2010-11-18 Completed University of 00:00:00 [facility] TDAP (ADACEL) 2010-11-18 Completed University of VACCINE 00:00:00 [facility] HEPATITIS A 2004-03-02 Completed University of 00:00:00 [facility] HEPATITIS A 2004-03-02 Completed University of 00:00:00 [facility] HEPATITIS A 2004-03-02 Completed University of 00:00:00 [facility] HEPATITIS A 2004-03-02 Completed University of 00:00:00 [facility] HEPATITIS A 2004-03-02 Completed University of 00:00:00 [facility] HEPATITIS A 2003-08-01 Completed University of 00:00:00 [facility] HEPATITIS A 2003-08-01 Completed University of 00:00:00 [facility] HEPATITIS A 2003-08-01 Completed University of 00:00:00 [facility] HEPATITIS A 2003-08-01 Completed University of 00:00:00 [facility] HEPATITIS A 2003-08-01 Completed University of 00:00:00 [facility] Pneumococcal 2001-10-04 Completed University o f Polysaccharide, 00:00:00 [facility] ical PPSV23 (PNEUMOVAX) Branch PPD (TB) 2001-10-04 Completed University of 00:00:00 [facility] Pneumococcal 2001-10-04 Completed University o f Polysaccharide, 00:00:00 [facility] ical PPSV23 (PNEUMOVAX) Branch PPD (TB) 2001-10-04 Completed University of 00:00:00 [facility] Pneumococcal 2001-10-04 Completed University o f Polysaccharide, 00:00:00 [facility] ical PPSV23 (PNEUMOVAX) Branch PPD (TB) 2001-10-04 Completed University of 00:00:00 [facility] Pneumococcal 2001-10-04 Completed University o f Polysaccharide, 00:00:00 [facility] ical PPSV23 (PNEUMOVAX) Branch PPD (TB) 2001-10-04 Completed University of 00:00:00 [facility] Pneumococcal 2001-10-04 Completed University o f Polysaccharide, 00:00:00 [facility] ical PPSV23 (PNEUMOVAX) Branch PPD (TB) 2001-10-04 Completed University of 00:00:00 [facility] Vital Signs Vital Name Observation Time Observation Value Comments Source Systolic blood 2021-12-13 06:39:53 170 mm[Hg] Univer sity of pressure [place] [facility] Diastolic blood 2021-12-13 06:39:53 96 mm[Hg] Unive rsity of pressure [place] [facility] Heart rate 2021-12-13 06:39:53 60 /min [facility] [place] [facility] Respiratory rate 2021-12-13 06:39:53 18 /min Univ ers[facility] [place] [facility] Oxygen saturation in 2021-12-13 06:39:53 98 /min University of Arterial blood by [place] [employer] porfirio Pulse oximetry Branch Body temperature 2021-12-13 04:57:00 36.56 Amina [facility] [place] [facility] Body height 2021-12-13 04:57:00 162.6 cm [facility] [place] [facility] Body weight 2021-12-13 04:57:00 90.719 kg [facility] [place] [facility] BMI 2021-12-13 04:57:00 34.33 kg/m2 [facility] [place] [facility] Systolic blood 2021-08-21 13:13:00 191 mm[Hg] Univer sity of pressure [place] [facility] Diastolic blood 2021-08-21 13:13:00 99 mm[Hg] Unive rsity of pressure [place] [facility] Heart rate 2021-08-21 13:13:00 52 /min [facility] [place] [facility] Body temperature 2021-08-21 13:11:00 36.5 Amina [facility] [place] [facility] Respiratory rate 2021-08-21 13:11:00 16 /min [facility] [place] [facility] Body height 2021-08-21 13:11:00 162.6 cm [facility] [place] [facility] Body weight 2021-08-21 13:11:00 93.759 kg [facility] [place] [facility] BMI 2021-08-21 13:11:00 35.48 kg/m2 [facility] [place] [facility] Oxygen saturation in 2021-08-21 13:11:00 95 /min University of Arterial blood by [facility] Pulse oximetry Branch Systolic blood 2021-07-14 15:18:00 142 mm[facility]Hg] [facility] Diastolic blood 2021-07-14 15:18:00 76 mm[facility]Hg] [facility] Heart rate 2021-07-14 15:18:00 61 [facility] height 2021-07-14 15:18:00 162.6 cm [facility] Body weight 2021-07-14 15:18:00 94.802 kg [facility] BMI 2021-07-14 15:18:00 35.87 kg/m2 [facility] Systolic blood 2020-12-08 15:48:00 125 mm[Hg] [facility] pressure Diastolic blood 2020-12-08 15:48:00 76 mm[Hg] [facility] pressure Heart rate 2020-12-08 15:48:00 64 /min [facility] Body temperature 2020-12-08 15:48:00 36.61 Amina [facility] Respiratory rate 2020-12-08 15:48:00 17 /min [facility] Body height 2020-12-08 15:48:00 162.6 cm [facility] Body weight 2020-12-08 15:48:00 98.884 kg [facility] BMI 2020-12-08 15:48:00 37.42 kg/m2 [facility] Oxygen saturation in 2020-12-08 15:48:00 97 /min [facility] Arterial blood by Pulse oximetry Respitory Rate 2020-08-30 13:00:00 Memori al [facility] Systolic (mm Hg) 2020-08-30 13:00:00 Caesar rial [facility] Diastolic (mm Hg) 2020-08-30 13:00:00 Mem orial [facility] Systolic (mm Hg) 2020-08-30 11:00:00 Caesar rial [facility] Diastolic (mm Hg) 2020-08-30 11:00:00 Mem orial [facility] Temperature Oral (F) 2020-08-30 11:00:00 98.4 F [facility] Respitory Rate 2020-08-30 11:00:00 Memori al [facility] Respitory Rate 2020-08-30 10:00:00 Memori al [facility] Systolic (mm Hg) 2020-08-30 10:00:00 Caesar rial [facility] Diastolic (mm Hg) 2020-08-30 10:00:00 Mem orial [facility] Temperature Oral (F) 2020-08-30 00:00:00 96.9 F [facility] Temperature Oral (F) 2020-08-29 11:26:00 97.6 F Claude [facility] Height 2020-08-29 10:30:00 162.56 cm [facility] Weight 2020-08-29 10:30:00 [facility] Calculated 2020-08-29 10:30:00 D[place] Hammond Procedures Procedure Date / Time Performing Clinician Source Performed MEDICATION CORRESPONDENCE 2022-01-06 05:01:00 Doctor Unassigned, [facility] Name Medical Branch MEDICATION CORRESPONDENCE 2021-12-25 05:01:00 Doctor Unassigned, [facility] Name [facility] CT CERVICAL SPINE WO 2021-12-13 05:48:16 Bill Guo [facility] CONTRAST [facility] CT HEAD WO CONTRAST 2021-12-13 05:48:16 Bill Guo [facility] CT LUMBAR SPINE WO 2021-12-13 05:48:16 Bill Guo [facility] CONTRAST [facility] Branch CT THORACIC SPINE WO 2021-12-13 05:48:16 Bill Guo [facility] CONTRAST [facility] Branch ECG 12-LEAD 2021-07-14 15:14:00 Anarubinzari Hollymukul [facility] [id number] 2021-06-17 00:00:00 RIKY [facility] GASTROINTESTINAL PANEL 2020-12-08 22:21:00 Eliseo Arce [facility] XR ABDOMEN 1 VW 2020-12-08 18:06:32 Eliseo Arce [facility] [place] < 1 HOUR 2020-09-05 22:39:00 Eliseo Arce [facility] SURGICAL PATHOLOGY REQUEST 2020-09-05 21:54:00 Eliseo Arce [facility] XR CHEST 1 VW PORTABLE 2020-09-05 19:55:00 Eliseo Arce [facility] DISCHARGE PATIENT 2020-09-05 17:27:55 Lucas Harris [facility] [place] AN ELECTIVE 2020-09-05 16:47:23 [facility], INTRAOPERATIVE 2020-09-05 16:27:00 [facility] 2020-09-05 15:04:00 Sarai Maharaj [facility] TIME (PTT) M. PROTHROMBIN TIME WITH INR 2020-09-05 15:04:00 Mindy Maharaj [facility] M. Plan of Care Planned Activity Planned Date Details Comments Source Future Scheduled 2022-01-20 SHINGLES VACCINES (1 Met [facility] Test 06:12:34 of 2) [code = SHINGLES VACCINES (1 of 2)] Future Scheduled 2022-01-20 Screening for [facility] Test 06:12:34 malignant neoplasm of cervix (procedure) [code = 258725513] Future Scheduled 2022-01-20 BREAST CANCER [facility] Test 06:12:34 SCREENING [code = BREAST CANCER SCREENING] Future Scheduled 2022-01-20 COLONOSCOPY SCREENING [facility] Test 06:12:34 [code = COLONOSCOPY SCREENING] Future Scheduled 2022-01-20 HEPATITIS B VACCINES Met [facility] Test 06:12:34 (1 of 3 - Risk 3-dose series) [code = HEPATITIS B VACCINES (1 of 3 - Risk 3-dose series)] Future Scheduled 2022-01-20 COVID-19 VACCINE (3 - [facility] Test 06:12:34 Booster for Pfizer series) [code = COVID-19 VACCINE (3 - Booster for Pfizer series)] Future Scheduled 2022-01-20 65+ PNEUMOCOCCAL [facility] Test 06:12:34 VACCINE (4 - PPSV23 or PCV20) [code = 65+ PNEUMOCOCCAL VACCINE (4 - PPSV23 or PCV20)] Future Scheduled 2022-01-20 INFLUENZA VACCINE [facility] Test 06:12:34 [code = INFLUENZA VACCINE] Future Scheduled 2022-01-16 SHINGLES VACCINES (1 Met [facility] Test 12:09:25 of 2) [code = SHINGLES VACCINES (1 of 2)] Future Scheduled 2022-01-16 Screening for [facility] Test 12:09:25 malignant neoplasm of cervix (procedure) [code = 976399985] Future Scheduled 2022-01-16 BREAST CANCER [facility] Test 12:09:25 SCREENING [code = BREAST CANCER SCREENING] Future Scheduled 2022-01-16 COLONOSCOPY SCREENING [facility] Test 12:09:25 [code = COLONOSCOPY SCREENING] Future Scheduled 2022-01-16 HEPATITIS B VACCINES Met [facility] Test 12:09:25 (1 of 3 - Risk 3-dose series) [code = HEPATITIS B VACCINES (1 of 3 - Risk 3-dose series)] Future Scheduled 2022-01-16 COVID-19 VACCINE (3 - [facility] Test 12:09:25 Booster for Pfizer series) [code = COVID-19 VACCINE (3 - Booster for Pfizer series)] Future Scheduled 2022-01-16 65+ PNEUMOCOCCAL [facility] Test 12:09:25 VACCINE (4 - PPSV23 or PCV20) [code = 65+ PNEUMOCOCCAL VACCINE (4 - PPSV23 or PCV20)] Future Scheduled 2022-01-16 INFLUENZA VACCINE Method [facility] Test 12:09:25 [code = INFLUENZA VACCINE] Future Scheduled 2022-01-14 SHINGLES VACCINES (1 [facility] Test 04:11:46 of 2) [code = SHINGLES VACCINES (1 of 2)] Future Scheduled 2022-01-14 Screening for [facility] Test 04:11:46 malignant neoplasm of cervix (procedure) [code = 847496932] Future Scheduled 2022-01-14 BREAST CANCER [facility] Test 04:11:46 SCREENING [code = BREAST CANCER SCREENING] Future Scheduled 2022-01-14 COLONOSCOPY SCREENING [facility] Test 04:11:46 [code = COLONOSCOPY SCREENING] Future Scheduled 2022-01-14 HEPATITIS B VACCINES Met [facility] Test 04:11:46 (1 of 3 - Risk 3-dose series) [code = HEPATITIS B VACCINES (1 of 3 - Risk 3-dose series)] Future Scheduled 2022-01-14 COVID-19 VACCINE (3 - [facility] Test 04:11:46 Booster for Pfizer series) [code = COVID-19 VACCINE (3 - Booster for Pfizer series)] Future Scheduled 2022-01-14 65+ PNEUMOCOCCAL [facility] Test 04:11:46 VACCINE (4 - PPSV23 or PCV20) [code = 65+ PNEUMOCOCCAL VACCINE (4 - PPSV23 or PCV20)] Future Scheduled 2022-01-14 INFLUENZA VACCINE Method [facility] Test 04:11:46 [code = INFLUENZA VACCINE] Future Scheduled 2021-08-26 Screening for [facility] Test 13:02:23 malignant neoplasm of cervix (procedure) [code = 200759811] Future Scheduled 2021-08-26 BREAST CANCER [facility] Test 13:02:23 SCREENING [code = BREAST CANCER SCREENING] Future Scheduled 2021-08-26 COLONOSCOPY SCREENING [facility] Test 13:02:23 [code = COLONOSCOPY SCREENING] Future Scheduled 2021-08-26 Screening for [facility] Test 13:02:23 malignant neoplasm of lung (procedure) [code = 631435797] Future Scheduled 2021-08-26 SHINGLES VACCINES (#1) [facility] Test 13:02:23 [code = SHINGLES VACCINES (#1)] Future Scheduled 2021-08-26 COVID-19 VACCINE (3 - [facility] Test 13:02:23 Pfizer risk 4-dose series) [code = COVID-19 VACCINE (3 - Pfizer risk 4-dose series)] Future Scheduled 2021-08-26 65+ [facility]CCAL [facility] Test 13:02:23 VACCINE (4 of 4 - PPSV23) [code = 65+ PNEUMOCOCCAL VACCINE (4 of 4 - PPSV23)] Future Scheduled 2021-08-26 INFLUENZA VACCINE Method [facility] Test 13:02:23 [code = INFLUENZA VACCINE] Encounters Start End Encounter Admission Attending Care Care Encounter Source Date/Time Date/Time Type Type Clinicians Facility Department ID 2021-11-16 Outpatient [facility] [id number] [place] 10:32:[id number] [place] [address] 2021-08-03 Inpatient EDUARDO LundCL OUTD [id number] [facility] 11:30:00 Mike [id number] [facility] 2021-07-14 Outpatient JENNY [facility] [id number] [place] 09:33:51 [facility] 2021-06-16 Inpatient EDUARDO LealCL OUTD [id number] [facility] 08:30:00 Mike [id number] [facility] 2021-06-15 Inpatient WINTER Leal OUTD [id number] [facility] 10:30:00 Mike [id number] [facility] 2022-02-26 2022-02-26 [facility] [id number] [facility] 08:30:00 08:30:00 [facility] [id number] [facility] 2022-02-26 2022-02-26 Outpatient R [facility] [id number] Univers 08:30:00 08:30:00 SANTIAGO charlie [facility] 2022-01-06 2022-01-06 Orders Doctor FERMIN 1.2.840.114 [id number] Univers 00:00:00 00:00:00 Only Unassigned, JACKELINE 350.1.13.10 ity of [facility] 4.2.7.2.686 Yomi as [phone] [facility] [address] [place] 2021-12-25 2021-12-25 Orders Doctor FERMIN 1.2.840.114 [id number] Univers 00:00:00 00:00:00 Only Unassigned, JACKELINE 350.1.13.10 ity of [place] [facility] 4.2.7.2.686 Yomi as [phone] [facility] [address] [place] 2021-12-12 2021-12-13 Emergency X Bill GUO [facility] ERT [id number] Univers 23:53:00 01:52:00 ity [facility] 2021-12-12 2021-12-13 Emergency Bill Guo [facility] 1.2.840.114 [id number] Univers 23:53:00 01:52:00 Kiersten BULLOCK 350.1.13.10 i ty [facility] [place] [phone] [facility] [address] [place] 2021-11-20 2021-11-20 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 [facility] UNIVERSIT 1.2.840.114 [id number] Univers 09:45:00 10:00:00 Visit Santiago [facility] 350.1.13.10 ity of [facility] 4.2.7.2.[place] [phone] [facility] [address] 2021-11-20 2021-11-20 [facility] [id number] Univers 09:45:00 09:45:00 SANTIAGO [facility] 2021-11-20 2021-11-20 Outpatient [facility] [id number] Univers 09:45:00 09:45:00 [id number] [facility] 2021-08-21 2021-08-21 Office [facility] 1.2.196.606 [id number] [facility] 08:30:00 09:00:00 [facility] [facility] 4.2.7.2.686 [facility] [phone] [facility] [address] 2021-08-05 2021-08-05 Outpatient RAUL Lund, HCACL [facility] [id number] [facility] 05:24:00 05:24:00 Mike 31 [facility] 2021-08-05 2021-08-05 Outpatient RAUL Lnud, HCACL [facility] [id number] [facility] 05:24:00 05:24:00 Mike [id number] [facility] 2021-07-14 2021-07-14 Office KIMBERLEY Lira 6400 1.2.840.114 13 [id number] [place] 08:45:00 09:34:[address] 350.1.13.58 Health 9.2.7.2.686 [id number] 1 2021-07-09 2021-07-09 Telephone KIMBERLEY Layton 6400 1.2.840.114 [id number] [place] 00:00:00 00:00:[address] 350.1.13.58 Health 9.2.7.2.686 [id number] 1 2021-06-17 2021-06-17 Inpatient RAUL Lund, HCACL INTE.02 [id number] [facility] 10:56:00 14:36:00 Mike [id number] [facility] 2021-06-17 2021-06-17 Inpatient RAUL Lund, HCACL INTE.02 [id number] [facility] 10:56:00 14:36:00 Mike 47 [facility] 2021-04-28 2021-04-28 Telephone Jailyn 1.2.840.7 [id number] 21 [id number] Methodi 00:00:00 00:00:[address] 3.430.2.7 Hospit a .3.383943 l .8 2021-04-28 2021-04-28 Telephone Chihara, 1.2.840.5 [id number] 21 [id number] Methodi 00:00:00 00:00:[address] 3.430.2.7 Hospit a .3.960081 l .8 2021-03-31 2021-03-31 Orders Meisenlion, 1.2.840.1 [id number] 21 [id number] Methodi 00:00:00 00:00:00 Only Sarai Corbin. 12529.1.1 979 s t 3.430.2.7 Hospit a .3.434939 l .8 2021-03-31 2021-03-31 Orders Meisenlion, 1.2.840.1 [id number] 21 [id number] Methodi 00:00:00 00:00:00 Only Sarai Corbin. 02155.1.1 979 s t 3.430.2.7 Hospit a .3.472247 l .8 2021-03-24 2021-03-24 Telephone Jailyn, 1.2.840.5 [id number] 21 [id number] Methodi 00:00:00 00:00:[address] 3.430.2.7 Hospit a .3.077611 l .8 2021-03-24 2021-03-24 Telephone Jailyn, 1.2.840.9 [id number] 21 [id number] Methodi 00:00:00 00:00:[address] 3.430.2.7 Hospit a .3.856097 l .8 2021-01-19 2021-01-19 Telephone Prabhu, 1.2.840.1 [id number] 2[id number] Methodi 00:00:00 00:00:[address] 3.430.2.7 Hospit a .3.478760 l .8 2020-12-12 2020-12-12 Office Hematpour, [facility] 6400 1.2.840.114 12 [id number] 07:42:02 08:18:[address] 350.1.13.58 9.2.7.2.686 [id number] 1 2020-12-09 2020-12-09 Telephone [facility], 1.2.840.1 [id number] Methodi 00:00:00 00:00:00 Sarai Lieberman 14825.1.1 316 s t 3.430.2.7 Hospit a .3.463575 l .8 2020-12-08 2020-12-08 [facility], 1.2.840.1 [id number] 2100 [id number] Methodi 12:35:54 23:59:00 Encounter Ray [address]44.1.[address] 3.430.2.7 Hospit a .3.999911 l .8 2020-12-08 2020-12-08 Lab [facility], 1.2.840.1 [id number] 42644 37824 Methodi 17:25:00 17:30:[address] 3.430.2.7 Hospit a .3.789236 l .8 2020-12-08 2020-12-08 Office [facility], 1.2.840.1 [id number] 02818 84563 Methodi 10:30:00 11:39:56 Visit Ray 10733.1.[address] 3.430.2.7 Hospit a .3.456010 l .8 2020-12-08 2020-12-08 Travel 1.2.840.1 1.2.630.123 6856 952211 Methodi 00:00:00 00:00:[address] 3.430.2.7 0.2.7.3.698 Ho spita .3.012441 084.8 l .8 2020-12-02 2020-12-02 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 [facility] 1.2.840.114 8 [id number] 10:20:06 10:36:19 Visit HEALTH 350.1.13.10 CLINICS 4.2.7.2.686 [id number] 316 2020-11-25 2020-11-25 Office Devin [facility] 1.2.840.114 [id number] 11:06:30 11:58:14 Visit Eligiomeredith R TENSILE TESTER 350.1.13.10 REGIONAL 4.2.7.2.686 MATERNAL [id number] & CHILD 107 [facility] 2020-11-25 2020-11-25 [facility] 1.2.922.461 5990 4592 00:00:00 00:00:00 [facility] 350.1.13.10 [facility] 4.2.7.2.686 [id number] 089 2020-11-25 2020-11-25 Telephone [facility] 1.2.770.094 [id number] 0821 00:00:00 00:00:00 Eligiomeredith R TENSILE TESTER 350.1.13.10 REGIONAL 4.2.7.2.686 MATERNAL [id number] & CHILD 107 [facility] 2020-11-14 2020-11-14 Abstract Clark, 1.2.840.1 [id number] 83081 Methodi 00:00:00 00:00:[address] 3.430.2.7 Hospit a .3.179473 l .8 2020-11-14 2020-11-14 Telephone Clark 1.2.840.1 [id number] 2100 [id number] Methodi 00:00:00 00:00:[address] 3.430.2.7 Hospit a .3.411546 l .8 2020-11-07 2020-11-07 Telephone KIMBERLEY Ortiz 6400 1.2.840.114 124 [id number] 00:00:00 00:00:[address] 350.1.13.58 9.2.7.2.686 [id number] 1 2020-10-27 2020-10-27 Telephone Jailyn 1.2.840.2 [id number] 21 [id number] Methodi 00:00:00 00:00:[address] 3.430.2.7 Hospit a .3.099431 l .8 2020-10-24 2020-10-24 Telephone [facility], 1.2.840.1 [id number] 2099 [id number] Methodi 00:00:00 00:00:[address] 3.430.2.7 Hospit a .3.546278 l .8 2020-10-06 2020-10-12 Telemedici [facility], 1.2.840.1 [id number] Methodi 15:30:00 00:08:46 ne Ray [address]1855.1.[address] 3.430.2.7 Hospit a .3.211957 l .8 2020-09-30 2020-09-30 Telephone [facility], 1.2.840.8 [id number] Methodi 00:00:00 00:00:[address] 3.430.2.7 Hospit a .3.180827 l .8 2020-09-21 2020-09-21 Travel 1.2.840.1 1.2.758.358 9751 928710 Methodi 00:00:00 00:00:[address] 3.430.2.7 0.2.7.3.698 Ho spita .3.828782 084.8 l .8 2020-09-06 2020-09-06 [facility] 1.2.840.1 [id number] 74880 Methodi 17:42:30 23:59:[address] 3.430.2.7 Hospit a .3.608449 l .8 2020-09-06 2020-09-06 [facility], 1.2.840.1 [id number] 2099 320221 Methodi 16:50:00 17:41:00 Encounter Ray 32758.1.[address] 3.430.2.7 Hospit a .3.715721 l .8 2020-09-05 2020-09-05 [facility], 1.2.840.1 [id number] 2099 [id number] Methodi 09:17:00 19:45:00 Encounter Ray [address]76.1.[address] 3.430.2.7 Hospit a .3.432691 l .8 2020-09-05 2020-09-05 Surgery Chihara, 1.2.840.1 [id number] 82785 41303 Methodi 11:30:00 13:15:[address] 3.430.2.7 Hospit a .3.522688 l .8 2020-09-05 2020-09-05 Anesthesia Remigio, 1.2.840.1 [id number] Methodi 11:27:00 12:20:00 Event Anupamwathi 38957.1.1 243 s t V. 3.430.2.7 Hospit a .3.510235 l .8 2020-09-05 2020-09-05 Travel 1.2.840.1 1.2.405.654 5338 023919 Methodi 00:00:00 00:00:[address] 3.430.2.7 0.2.7.3.698 Ho spita .3.094265 084.8 l .8 2020-09-04 2020-09-04 Telephone Meisenbach, 1.2.840.1 [id number] Methodi 00:00:00 00:00:00 Sarai M. 75630.1.1 762 s t 3.430.2.7 Hospit a .3.566156 l .8 2020-09-02 2020-09-02 Telephone Meisenbach, 1.2.840.2 [id number] Methodi 00:00:00 00:00:00 Sarai M. 69114.1.1 344 s t 3.430.2.7 Hospit a .3.547111 l .8 2020-08-29 2020-08-30 [id number] [facility] 10:20:00 14:10:00 Outpatient r [place] 00 l [facility] 2020-08-29 2020-08-30 Outpatient HEMATPOUR, [facility] 7[address] [facility] 05:20:00 09:10:00 BEVERLY Results Test Description Test Time Test Comments Results Result Comments Source Novel Coronavirus 2019 Inhouse 2021-08-03 18:08:00 Test Item Value Reference Range Interpretation Comme nts Novel Coronavirus 2018 Negative Negative Posit bruno results are indicative of the Inhouse (test code = presenc e zsKZZF-XvQ-8 RNA, clinical COVNONPUI) correlation wit h patient [...] qualitative detection of nucleic acid s from qaqXTMN-YrF-4 virus and diagn osis of SARS-CoV-2 virusinfection. It is an Emergency Use Authorization ( EUA) testauthorized by the U.S. FDA. BASIC METABOLIC [id number] 09:37:00 Test Item Value Reference Range Interpretation [...] = 9.0 mg/dL 8.0-10.5 N CA) PROTHROMBIN [id number] 09:32:00 Test Item Value Reference Range Interpretation [...] (to prevent recurrent infar ct). 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 [facility] - XR CHEST 1 [id number] 00:00:00 EDUARDO [facility] ELEN GLENDALEName: LIO WATTS : 1955 Sex: F FAX: Carmenza Kelly [phone] [place]: St: ADM FAX: Mike Scales MD [phone] FAX: Bahman Chopra [phone] Name: LIO WATTS [facility]ed[facility] : 1955 Age/S: 66/F [address] [place] [address] Unit #:[id number] Loc: [place] [address] Phys: Bahman Chopra [facility] Acct: [id number] Dis Date: Status: ADM IN PHONE #: [phone] Exam Date: 06/17/2021 1320 FAX #: [phone] Reason: WATCHMAN EX AMS: CPT CODE: [id number] XR CHEST 1 V 65583 PROCEDURE INFORMATION: Exam: XR Chest Exam date [...] CC: Lele Rahman DO; Mike Lund MD; Loli Chopra Technologist: RT Taylor(R) Trnbob Date/Time/By: 06/17/2021 (0687) : By: Susanna Orig Print D/T: S: 06/17/2021 (6977) PAGE 1 Signed ReportCOVID 19 Asymptomatic IH [id number] 12:29:00 Test Item Value Reference Range Interpretation [...] high or waivedcomplexit y tests. BASIC METABOLIC [id number] 11:37:00 Test Item Value Reference Range Interpretation [...] code = 9.0 mg/dL 8.0-10.5 N CA) [id number] 11:37:00 Test Item Value Reference Range Interpretation Comments PREALBUMIN (test code = PREALB) 24.3 mg/dL 16.0-40.0 N PROTHROMBIN [id number] 11:03:00 Test Item Value Reference Range Interpretation [...] (to prevent recurrent infar ct). CBC W/AUTO [id number] 10:59:00 Test Item Value Reference Range Interpretation [...] 0.0-0.1 N NRBC#) - XR CHEST 2 [id number] 00:00:00 [facility] 1955 Sex: F FAX: Carmenza Kelly [phone] [place]: St: PRE FAX: Mike Scales MD [phone] Name: LIO WATTS [facility] : 1955 Age/S: 66/F [address] [place] [address] Unit #: [id number] Loc: [place] [address] Phys: Mike Lund MD Acct: [id number] Dis Date: Status: PRE [facility] PHONE #: [phone] Exam Date: 06/16/2021 1120 FAX #: [phone] Reason: PREOP EXAMS: CPT CODE: [id number] XR CHEST 2 V 32768 PROCEDURE INFORMATION: Exam: XR Chest Exam date [...] MD Technologist: RT Andree(R) Trnscrd Date/Time/By: 06/16/2021 (3873) : By: [email or web address] Orig Print D/T: S: 06/16/2021 (1444) PAGE 1 Signed ReportGastrointestinal [id number] 04:35:05 Test Item Value Reference Interpretation Comments [...] Rotavirus PCR (test Not Detected code = 9584131) Salmonella PCR (test Not Detected code = [...] PCR Not Detected (test code = 7124) [facility] [id number] 19:30:47 Test Item Value Reference Range Interpretation Comments Case number (test [id number] code = 3228894) Surgical pathology See link below for PDF report (test code = Lab Report 2255) Result status (test This is Supplemental code = 7705609) Report for [id number] [facility]2021-04-09 16:31:00 Test Item Value Reference Range Interpretation Comments POC Activated Clotting Time (test code 153 s = POC Activated Clotting Time) [facility]andwdwVPLTKEWIGI9848-93-53 16:31:00 Test Item Value Reference Range Interpretation Comments POC Activated Clotting Time (test code 153 s = POC Activated Clotting Time) [facility] CypressNvkajklBJDERHWLEK5386-96-36 16:31:00 Test Item Value Reference Range Interpretation Comments POC Activated Clotting Time (test code 153 s = POC Activated Clotting Time) [facility] CypressPrtgyzkDZYZCSKEXI2056-62-72 16:31:00 Test Item Value Reference Range Interpretation Comments POC Activated Clotting Time (test code 153 s = POC Activated Clotting Time) [facility] CypressXutfyntHZLQFINQNQ1998-27-37 16:31:00 Test Item Value Reference Range Interpretation Comments POC Activated Clotting Time (test code 153 s = POC Activated Clotting Time) [facility] CypressXqmltjxZUCFGKUETS3100-54-73 16:31:00 Test Item Value Reference Range Interpretation Comments POC Activated Clotting Time (test code 153 s = POC Activated Clotting Time) [facility] CypressUaqkpxyBAMPHBTBRW0253-13-46 16:31:00 Test Item Value Reference Range Interpretation Comments POC Activated Clotting Time (test code 153 s = POC Activated Clotting Time) [facility] CypressMjodwkbHYAAIDLXDU1781-23-29 14:37:00 Test Item Value Reference Range Interpretation Comments POC Activated Clotting Time (test code 454 s = POC Activated Clotting Time) [facility] CypressKvdxhlgGOTBQQIVNE3720-19-17 14:37:00 Test Item Value Reference Range Interpretation Comments POC Activated Clotting Time (test code 454 s = POC Activated Clotting Time) [facility] CypressHkaznbzCGSLANBXBR8337-05-53 14:37:00 Test Item Value Reference Range Interpretation Comments POC Activated Clotting Time (test code 454 s = POC Activated Clotting Time) [facility] CypressHxhsxfhSQDARQSMNX2401-90-76 14:37:00 Test Item Value Reference Range Interpretation Comments POC Activated Clotting Time (test code 454 s = POC Activated Clotting Time) [facility] CypressJuoyuyaVRZKKLZYJE6251-81-40 14:37:00 Test Item Value Reference Range Interpretation Comments POC Activated Clotting Time (test code 454 s = POC Activated Clotting Time) [facility] CypressNppawdnNXPXIVZXOZ3728-07-48 14:37:00 Test Item Value Reference Range Interpretation Comments POC Activated Clotting Time (test code 454 s = POC Activated Clotting Time) [facility] CypressHaonpbuDFPQPVLPUP1369-96-58 14:37:00 Test Item Value Reference Range Interpretation Comments POC Activated Clotting Time (test code 454 s = POC Activated Clotting Time) [facility] CypressAjqcoedVOBSAOVASI5335-59-25 14:13:00 Test Item Value Reference Range Interpretation Comments POC Activated Clotting Time (test code 354 s = POC Activated Clotting Time) [facility] CypressSmcsidcOUCDHTSPBD8279-52-53 14:13:00 Test Item Value Reference Range Interpretation Comments POC Activated Clotting Time (test code 354 s = POC Activated Clotting Time) [facility] CypressHwlrvcxFVTSOLNVMR4971-43-47 14:13:00 Test Item Value Reference Range Interpretation Comments POC Activated Clotting Time (test code 354 s = POC Activated Clotting Time) [facility] CypressPmfscoqMAUDBWWXRJ4773-82-34 14:13:00 Test Item Value Reference Range Interpretation Comments POC Activated Clotting Time (test code 354 s = POC Activated Clotting Time) [facility] CypressWuevxilLIQKUNWIBY7535-14-76 14:13:00 Test Item Value Reference Range Interpretation Comments POC Activated Clotting Time (test code 354 s = POC Activated Clotting Time) [facility] CypressYytiyueCZQUWACBRU5221-79-85 14:13:00 Test Item Value Reference Range Interpretation Comments POC Activated Clotting Time (test code 354 s = POC Activated Clotting Time) [place] [id number] 14:13:00 Test Item Value Reference Range Interpretation Comments POC Activated Clotting Time (test code 354 s = POC Activated Clotting Time) [facility] BANK [id number] 10:37:00Negative (08/29/20 5:37 AM) [facility] [id number] 10:37:96284Vgbxbdar HermannCHEM PANEL 2020-08-29 10:37:0028[facility]annCHEM AWJHG7449-47-04 10:37:001.01[facility]annCHEM BMZSX5713-21-37 10:37:30026Oubgqvku HermannCHEM JGNEC2639-19-57 10:37:003.8[facility] HermannCHEM NJPMZ2101-20-05 10:37:09283Sftpfppe HermannCHEM YDSVE7173-19-59 10:37:0028[facility] HermannCHEM FWCOG1608-57-87 10:37:009.8 [facility]annCHE[facility] QLLHK9292-80-41 10:37:0011.8[facility] HermannCHEM PANEL 2020-08-29 10:37:0059[facility] HermannCHEM ZGQEM8871-18-55 10:37:002.9Memorial OvlbulrABTGWDHLDP4577-40-40 10:37:006.8Memorial QnmidiwODBGLKHAHU1746-54-45 10:37:004.47Memorial NksmsqpRBAEAYQHCY0952-80-40 10:37:0010.6[facility] RBKEQOUUIU8204-66-97 10:37:0034.0Memorial SsktknyDHBQHAQNNZ3387-75-39 10:37:00 76.1[facility] JtzygdqITGBWSCAFW8140-25-74 10:37:00 Test Item Value Reference Range Interpretation Comments MCH (test code = MCH) 23.8 pg 27.0-31.0 [facility] EbmaxdzBEFNZMDIPI2067-91-40 10:37:0031.3[facility]annHEMATOLOGY 2020-08-29 10:37:0018.2[facility] NiaamxiYRXTNTUEIU0955-36-35 10:37:73001Vjsfldta WfcugvzRSCJAYKJCQ7207-60-64 10:37:007.5[facility] FpoyphqBJNGPGYFOV5267-25-85 10:37:00 Test Item Value Reference Range Interpretation Comments PT (test code = PT) 12.8 s 12.0-14.7 [facility] HhmhmgzQRFVXURVZE0706-29-60 10:37:00 Test Item Value Reference Range Interpretation Comments INR (test code = INR) 0.97 1 0.85-1.17 [facility] YoluvsqOQVVUCDZTV9884-30-63 10:37:00 Test Item Value Reference Range Interpretation Comments PTT (test code = PTT) 25.0 s 22.9-35.8 [facility] QnxpraxQBGVFIJTYZ1821-79-40 10:37:0070.5[facility]annHEMATOLOGY 2020-08-29 10:37:0018.8[facility] VoiejpyOJQDZUJZUF8146-31-60 10:37:009.5[facility] CyfdlsoFAONXIHDRW5496-68-21 10:37:000.9[facility] FokajbzPEGILUNRCK4216-36-41 10:37:000.3[facility] RytlduaBMYPXGLJXB5107-21-45 10:37:004.8[facility] SXSRDNVWHC6623-44-30 10:37:001.3[facility] VtyemasZFRJKUYUYB5984-94-93 10:37:000.6 [facility] BzsjpicTMVTHQVDCM9399-28-54 10:37:000.1[facility]annHEMATOLOGY 2020-08-29 10:37:001+ *ABN*(08/29/20 5:37 AM)[facility] GrpwhpkHADAUVPIFW4238-84-74 10:37:00Not Detected (08/29/20 5:37 AM)[facility] RESULTS 2020-08-29 10:37:00Negative (08/29/20 5:37 AM)[facility]annCHEM OYDFS7992-55-13 10:37:38559Iwqluotm HermannCHEM THDPE4721-24-32 10:37:0028[facility]annCHEM AKXGU7538-56-11 10:37:001.01[facility]annCHEM NIVTP6994-47-01 10:37:87183 [facility]CHE[facility] FNFUE7268-14-88 10:37:003.8[facility]annCHEM PANEL 2020-08-29 10:37:76346Vjaivhhq HermannCHEM NHDNR2664-66-15 10:37:0028[facility]ann[facility] VBIFA8680-43-16 10:37:009.8[facility]annCHE[facility] TKEGU7633-07-62 10:37:0011.8[facility]annCHE[facility] XXXFR2280-71-56 10:37:0059[facility]annCHE[facility] OZSYT1744-95-99 10:37:002.9[facility] DixeftgJTQDYNFFNB2241-20-80 10:37:006.8 [facility] AurisesBVEXJFEFSN9446-16-88 10:37:004.47[facility]annHEMATOLOGY 2020-08-29 10:37:0010.6[facility] ZxumadtGBXIHKHMML9584-97-34 10:37:0034.0[facility] OzxaqoeGQEOJUVFLK7944-22-87 10:37:0076.1[facility] HvjgjrkQSKOBNZPSQ2465-36-09 10:37:00 Test Item Value Reference Range Interpretation Comments MCH (test code = MCH) 23.8 pg 27.0-31.0 [facility] SkutctlYXUTAAKRAF7984-32-95 10:37:0031.3[facility]annHEMATOLOGY 2020-08-29 10:37:0018.2[facility] CozxcssLAKWCVYGLV7506-52-01 10:37:63962Warcrdgv UsydqcyDPVPWKCBUZ3521-19-80 10:37:007.5[facility] WrzfbusRAJZUVNVVD8896-64-12 10:37:00 Test Item Value Reference Range Interpretation Comments PT (test code = PT) 12.8 s 12.0-14.7 [facility] FcznmzkSYHJMYMZGO3088-77-35 10:37:00 Test Item Value Reference Range Interpretation Comments INR (test code = INR) 0.97 1 0.85-1.17 [facility] AxivdymBSNRCKLAHT3792-21-70 10:37:00 Test Item Value Reference Range Interpretation Comments PTT (test code = PTT) 25.0 s 22.9-35.8 [facility] UanxwucNBRCMAXLVO0958-99-24 10:37:0070.5[facility]annHEMATOLOGY 2020-08-29 10:37:0018.8[facility] HkhxkwnQUDAIPAEFH6812-99-08 10:37:009.5[facility] QxosneoVSPTLHWCET5986-30-22 10:37:000.9[facility] GtqpcokLLLUMNXBIT4933-25-01 10:37:000.3[facility] NbmgaifJATCRCDCQC5001-83-24 10:37:004.8[facility] NBLPRNEROL6527-78-91 10:37:001.3[facility] PjzdwhhQGJWSAFDBK0377-02-59 10:37:000.6 [facility] WlsnsqyFRFSGVRCQR1354-00-18 10:37:000.1[facility]annHEMATOLOGY 2020-08-29 10:37:001+ *ABN*(08/29/20 5:37 AM)[facility] SgwnjdoYFIGLSNPUK8757-37-81 10:37:00Not Detected (08/29/20 5:37 AM)[facility]annBL[facility] BANK RESULTS 2020-08-29 10:37:00Negative (08/29/20 5:37 AM)[facility]annCHEM ZHTOT0619-12-55 10:37:72140Zjfhwaca HermannCHEM XAFGR6597-37-99 10:37:0028[facility]annCHE[facility] YQOQG1364-85-21 10:37:001.01[facility]annCHEM KYILX0654-31-97 10:37:48868 [facility] GXBTI1922-39-75 10:37:003.8[facility]annCHEM PANEL 2020-08-29 10:37:14738Byoujrma HermannCHEM UTKJQ5435-75-34 10:37:0028[facility]annCHEM UJXPU9426-14-29 10:37:009.8[facility]annCHEM MFSVB4760-02-67 10:37:0011.8[facility]annCHEM VSZBJ3393-70-06 10:37:0059[facility]annCHE[facility] STFYX6806-97-78 10:37:002.9[facility] NgoriawMJUKHXNGGN7622-39-92 10:37:006.8 [facility] PpfvqxpMLJPSPOARF4832-45-06 10:37:004.47[facility]annHEMATOLOGY 2020-08-29 10:37:0010.6[facility] XnymqluTHXKREVCCM3043-45-15 10:37:0034.0[facility] OnexmmyLCSQVEDFYP8813-44-39 10:37:0076.1[facility] WppbjuwKCJUQGVBEB1414-51-79 10:37:00 Test Item Value Reference Range Interpretation Comments MCH (test code = MCH) 23.8 pg 27.0-31.0 [facility] PrguqdiZHFPYRVDQX3589-34-68 10:37:0031.3[facility]annHEMATOLOGY 2020-08-29 10:37:0018.2[facility] AnoiiiiPYZBVMVVZJ5964-72-98 10:37:32143Mblztkek OnetrugBCYRGLYLYZ6017-65-04 10:37:007.5[facility] PijpiblJCEVGRNVRV3011-50-90 10:37:00 Test Item Value Reference Range Interpretation Comments PT (test code = PT) 12.8 s 12.0-14.7 [facility] JecqttiVLGNQQPZJG5293-68-63 10:37:00 Test Item Value Reference Range Interpretation Comments INR (test code = INR) 0.97 1 0.85-1.17 [facility] LkvrqcgDGQXGWWMHR6513-50-96 10:37:00 Test Item Value Reference Range Interpretation Comments PTT (test code = PTT) 25.0 s 22.9-35.8 [facility] RgkrzzoJDTSQEJXDZ1066-80-53 10:37:0070.5[facility]annHEMATOLOGY 2020-08-29 10:37:0018.8[facility] LjmtqekVVRFLYICZG1814-88-60 10:37:009.5[facility] UyqnlihZAVIJWYHJE5025-67-07 10:37:000.9[facility] UplxbqzOFLAWCXJBM4610-58-75 10:37:000.3[facility] VkiepkfISAXNPAWRQ3525-07-64 10:37:004.8[facility] ELANCRGKPT5921-77-32 10:37:001.3[facility] KqqytilLVOJECLWBS6693-24-80 10:37:000.6 [facility] NzctaawYNVLNWSRMG6961-73-07 10:37:000.1[facility]annHEMATOLOGY 2020-08-29 10:37:001+ *ABN*(08/29/20 5:37 AM)[facility] RqevhmqABKJUEOUQM5280-77-38 10:37:00Not Detected (08/29/20 5:37 AM)[facility]annBL[facility]OD BANK RESULTS 2020-08-29 10:37:00Negative (08/29/20 5:37 AM)[facility]annCHEM MOYAV8109-86-92 10:37:54668Ycohqwuu HermannCHEM QCXMN7686-74-96 10:37:0028[facility]annCHEM VBAWO4731-82-57 10:37:001.01[facility]annCHEM ZKIJG7207-74-64 10:37:29221 [facility]CHE[facility] PFXPO8962-05-83 10:37:003.8[facility]annCHEM PANEL 2020-08-29 10:37:92711Osbbqqic HermannCHEM ROQKT2237-83-03 10:37:0028[facility]annCHEM AKOHS4636-64-82 10:37:009.8[facility]annCHEM ZLUPS9802-24-34 10:37:0011.8[facility]annCHEM QIEXU2843-76-24 10:37:0059[facility]annCHEM AWZTP6112-33-31 10:37:002.9[facility] XqtuhmcWKVVTLKEEH3575-24-53 10:37:006.8 [facility] VdbrzvjUSNMDHSQWH6044-86-72 10:37:004.47[facility]annHEMATOLOGY 2020-08-29 10:37:0010.6[facility] RnwdfjhJRPQJRDEPI0370-02-98 10:37:0034.0[facility] ByjvudrVNFECGCXKC9513-86-29 10:37:0076.1[facility] QgwwzglCULIOFXVVN1110-04-15 10:37:00 Test Item Value Reference Range Interpretation Comments MCH (test code = MCH) 23.8 pg 27.0-31.0 [facility] LimaqpjTEKWUDZRTR4100-48-14 10:37:0031.3[facility]annHEMATOLOGY 2020-08-29 10:37:0018.2[facility] QyxbujmAAMONFDMXU0940-35-62 10:37:81018Urrtysfz ZsydtluYJNRXADACU7546-52-85 10:37:007.5[facility] HfscdwpGNXICZMBPH2091-65-66 10:37:00 Test Item Value Reference Range Interpretation Comments PT (test code = PT) 12.8 s 12.0-14.7 [facility] HsxnkwmRENHBYRMUG5834-20-22 10:37:00 Test Item Value Reference Range Interpretation Comments INR (test code = INR) 0.97 1 0.85-1.17 [facility] DzqzcntREZKENECEQ1496-85-67 10:37:00 Test Item Value Reference Range Interpretation Comments PTT (test code = PTT) 25.0 s 22.9-35.8 [facility] GqmlucxSFMXLWSINN9065-05-44 10:37:0070.5[facility]annHEMATOLOGY 2020-08-29 10:37:0018.8[facility] HujzahnZOCUJRRYBR8939-19-58 10:37:009.5[facility] GbfozqhGOEJTSQDHB3523-63-47 10:37:000.9[facility] KqtgewyRZWXJRMHQK4347-05-06 10:37:000.3[facility] ZbwxhtqTTKGKGNXQV9413-48-68 10:37:004.8[facility] OWINCJMFWH4414-06-31 10:37:001.3[facility] CtyeynhZLPVBBKOWK2749-71-94 10:37:000.6 [facility] FxyudlhEKNEOSXROG8110-22-73 10:37:000.1[facility]annHEMATOLOGY 2020-08-29 10:37:001+ *ABN*(08/29/20 5:37 AM)[facility] ObediisQDIMDUJABV1416-24-67 10:37:00Not Detected (08/29/20 5:37 AM)[facility]annBLOOD BANK RESULTS 2020-08-29 10:37:00Negative (08/29/20 5:37 AM)[facility]annCHEM PROXF1938-22-56 10:37:33398Rigtnnrh HermannCHEM LWXML9729-11-03 10:37:0028[facility]annCHEM TVZOK4938-81-13 10:37:001.01[facility]annCHEM GCYCU6802-57-73 10:37:58890 [facility]CHE[facility] UULIT0462-27-78 10:37:003.8[facility]annCHEM PANEL 2020-08-29 10:37:33593Yckywebe HermannCHEM RQADW6095-21-09 10:37:0028[facility]annCHEM ZFEYL5014-10-17 10:37:009.8[facility]annCHEM QTMZC5815-26-06 10:37:0011.8[facility]annCHEM FWMDC3486-05-46 10:37:0059[facility]annCHEM PWMQT1995-77-69 10:37:002.9[facility] JkdiaixMYCDNDIOQH4784-18-20 10:37:006.8 [facility] CgrmcliHRJPVAILYD3336-65-29 10:37:004.47[facility]annHEMATOLOGY 2020-08-29 10:37:0010.6[facility] MxkziyyGEHWVCBEVQ2445-79-45 10:37:0034.0[facility] JfrylsbRCISXYVXJC7306-62-62 10:37:0076.1[facility] HrwptslCKWKCTRSFZ4067-20-39 10:37:00 Test Item Value Reference Range Interpretation Comments MCH (test code = MCH) 23.8 pg 27.0-31.0 [facility] GnjmvyeUAWEESIFMP8327-67-86 10:37:0031.3[facility]annHEMATOLOGY 2020-08-29 10:37:0018.2[facility] RkrezzmQBEZDUYALR0970-46-12 10:37:26747Rmshrgka ZoelpjfCWUVHBSECK4417-27-81 10:37:007.5[facility] JpdowftNILCUXAZDM8856-98-29 10:37:00 Test Item Value Reference Range Interpretation Comments PT (test code = PT) 12.8 s 12.0-14.7 [facility] IutotbvRCKDQAAANA5018-87-47 10:37:00 Test Item Value Reference Range Interpretation Comments INR (test code = INR) 0.97 1 0.85-1.17 [facility] UvlgadzVJFUSDONBB4168-52-60 10:37:00 Test Item Value Reference Range Interpretation Comments PTT (test code = PTT) 25.0 s 22.9-35.8 [facility] AckkemmQMEPITPXLT9435-34-34 10:37:0070.5[facility]annHEMATOLOGY 2020-08-29 10:37:0018.8[facility] XigmdhbNOALQKMZGY4295-65-43 10:37:009.5[facility] DpoiweoUGLSPJXRJH6448-65-36 10:37:000.9[facility] OwxkgbiUYJMTTPMIP1583-53-93 10:37:000.3[facility] WdfcxzbBSEAVJXYCI5509-13-38 10:37:004.8[facility] APZXUHVKPZ0380-80-74 10:37:001.3[facility] HbdiwkkZAWWVOMJIA7651-76-54 10:37:000.6 [facility] MgedxrbAEJIQVUQLN8293-33-71 10:37:000.1[facility] HermannHEMATOLOGY 2020-08-29 10:37:001+ *ABN*(08/29/20 5:37 AM)[facility] JrweyceLGEFAUGHYB2888-43-28 10:37:00Not Detected (08/29/20 5:37 AM)[facility]annBLOOD BANK RESULTS 2020-08-29 10:37:00Negative (08/29/20 5:37 AM)[facility]annCHEM QIKQN0349-75-21 10:37:19964Epmdpgvp HermannCHEM YXVVG0314-26-55 10:37:0028[facility]annCHEM EVXKS5610-19-71 10:37:001.01[facility]annCHEM ESLMP0832-97-41 10:37:96845 [facility]CHE[facility] RGGYG5555-57-01 10:37:003.8[facility]annCHEM PANEL 2020-08-29 10:37:41721Ynhfpmvc HermannCHEM XPUEJ3535-00-53 10:37:0028[facility]annCHEM PGEAT3317-58-28 10:37:009.8[facility]annCHEM UGCCW9834-69-78 10:37:0011.8[facility]annCHEM UUVNW5785-31-48 10:37:0059[facility]annCHEM BHDLU1838-50-86 10:37:002.9[facility] BgicosoMCDLMHGNIZ2940-09-32 10:37:006.8 [facility] EdveuogXKNUYWZTXY0368-11-95 10:37:004.47[facility]annHEMATOLOGY 2020-08-29 10:37:0010.6[facility] VfwsaojTMLOVBKNPA2200-91-22 10:37:0034.0[facility] FeifcoaVHIQQFNBLB4723-04-42 10:37:0076.1[facility] PsotaocVRYOLXCWYP1365-99-70 10:37:00 Test Item Value Reference Range Interpretation Comments MCH (test code = MCH) 23.8 pg 27.0-31.0 [facility] BujruqaIZSQXXPUOY2212-65-40 10:37:0031.3[facility]annHEMATOLOGY 2020-08-29 10:37:0018.2[facility] WpgrjtzNFXSFWTIFA0632-85-25 10:37:95873Tgoyoflc YhxsrdnHQAVWRWAUW0535-61-74 10:37:007.5[facility] JbwqyzuKVFPGXZXUW7109-52-85 10:37:00 Test Item Value Reference Range Interpretation Comments PT (test code = PT) 12.8 s 12.0-14.7 [facility] EwjqjkoNLTNTIUDCQ8092-87-13 10:37:00 Test Item Value Reference Range Interpretation Comments INR (test code = INR) 0.97 1 0.85-1.17 [facility] KtahgrlYYLREASQWF5958-90-31 10:37:00 Test Item Value Reference Range Interpretation Comments PTT (test code = PTT) 25.0 s 22.9-35.8 [facility] FjbtolfDYAFKZJUOK7081-10-13 10:37:0070.5[facility]annHEMATOLOGY 2020-08-29 10:37:0018.8[facility] NgikjvmYOKLFTFSKJ7624-05-33 10:37:009.5[facility] GuvjqjmRKSGISSRDH1537-77-03 10:37:000.9[facility] RtsaoreELZYGTEHUX8724-28-80 10:37:000.3[facility] VclcqfqKIEOSCKEKJ3561-21-54 10:37:004.8[facility] RWTYTMUIDZ0618-00-15 10:37:001.3[facility] QtvdtivNRCPGMKPLD6469-76-72 10:37:000.6 [facility] GtlyeguHEXBFDEDFH0578-40-97 10:37:000.1[facility]annHEMATOLOGY 2020-08-29 10:37:001+ *ABN*(08/29/20 5:37 AM)[facility] ZdlfocrRIINHMIFQP5604-83-74 10:37:00Not Detected (08/29/20 5:37 AM)[facility]annBLOOD BANK RESULTS 2020-08-29 10:37:00Negative (08/29/20 5:37 AM)[facility]annCHEM LFGKG7389-22-34 10:37:18547Jnucsahx HermannCHEM FKZVZ3271-29-75 10:37:0028[facility]annCHEM MMOFO8840-73-03 10:37:001.01[facility]annCHEM YUHBA0989-06-85 10:37:68088 [facility]annCHE[facility] LKJSR3631-58-31 10:37:003.8[facility] HermannCHEM PANEL 2020-08-29 10:37:61039Fakxrmsr HermannCHEM SAYAR4934-72-85 10:37:0028[facility]annCHEM UBKBV5416-14-07 10:37:009.8[facility]annCHEM VXLCB2960-18-90 10:37:0011.8[facility]annCHEM RJMCL8083-22-72 10:37:0059[facility]annCHEM WACJC3097-52-50 10:37:002.9[facility] BarrsjdOIMCIOGFAG7033-97-39 10:37:006.8 [facility] JfdrrqcSRIHHXULWG3422-63-75 10:37:004.47[facility]annHEMATOLOGY 2020-08-29 10:37:0010.6[facility] BarbndiTLAJRRKOVC0846-15-15 10:37:0034.0[facility] WbwwohkIFNJMUAUFQ7676-59-58 10:37:0076.1[facility] YaopojxOTEFOAKGBF6084-27-95 10:37:00 Test Item Value Reference Range Interpretation Comments MCH (test code = MCH) 23.8 pg 27.0-31.0 [facility] HmgmcxyAEVVQPMMFW1855-76-80 10:37:0031.3[facility]annHEMATOLOGY 2020-08-29 10:37:0018.2[facility] SmfbzhhHAZJYFJEPT0874-91-46 10:37:08520Zgifjewj KkueigjRSZPVCWZYI5251-00-29 10:37:007.5[facility] FldhglqUMSXKMZOAB4045-35-84 10:37:00 Test Item Value Reference Range Interpretation Comments PT (test code = PT) 12.8 s 12.0-14.7 [facility] ObsqrzkNXIBTSSWYB3126-06-13 10:37:00 Test Item Value Reference Range Interpretation Comments INR (test code = INR) 0.97 1 0.85-1.17 [facility] AatdhfkBBDKLVTAER1945-30-86 10:37:00 Test Item Value Reference Range Interpretation Comments PTT (test code = PTT) 25.0 s 22.9-35.8 [facility] AphbwzeINJKXBRCIC1400-56-06 10:37:0070.5[facility]annHEMATOLOGY 2020-08-29 10:37:0018.8[facility] FkqdsvpLCMKIBHBMK7335-50-57 10:37:009.5[facility] LqddgxuUTLEXSOHSK5735-64-25 10:37:000.9[facility] ChcgufzFIIFAPXUVK6738-58-14 10:37:000.3[facility] GncoldnZBGSQWXOHX4006-13-07 10:37:004.8[facility] ROLDNAWOTV9602-75-68 10:37:001.3[facility] RwucjrgFBNKFXDHEM9212-12-08 10:37:000.6 [facility] ObsjsdfZVEBFYOWVP8962-82-90 10:37:000.1[facility]annHEMATOLOGY 2020-08-29 10:37:001+ *ABN*(08/29/20 5:37 AM)[facility] NaziwlgFFLOYJVJZB6065-32-49 10:37:00Not Detected (08/29/20 5:37 AM)[facility] RonnieannCHLAMYDIA, GC, TV,PCR, IN FVTLQ1294-66-57 15:38:00 Test Item Value Reference Range Interpretation Comments FT (test code = CHTR) Not detected (qualifier Not Detected N value) FT (test code = Not detected (qualifier Not Detected N NGONO) value) FT (test code = TRVG) Not detected (qualifier Not Detected N value) URINALYSIS WITH OQHBMNNMTMP0135-80-87 10:57:00 Test Item Value Reference Range Interpretation Comments Color (test code = UCOLR) Dk. Yellow Clarity (test code = UCLAR) Hazy Glucose (test code = UGLUC) NEGATIVE NEGATIVE N Bilirubin (test code = UBILI) NEGATIVE NEGATIVE N Ketones (test code = UKET) NEGATIVE NEGATIVE N Specific Holl[place] (test code = 1.025 1.005-1.030 A USPGR) [...]
[2022-01-25 18:54] LABS: Absolute Lymphocytes (CBC) 1.3 K/uL (0.7-4.9); Hematocrit 40.4 % (36.0-45.0); Lymphocytes % 24.3 % (15.3-44.8); MCV 88.2 fL (80-100); MPV 8.1 fL (7.6-11.3); RBC Red Blood Cell Count 4.58 M/uL (3.86-4.86)
[2022-01-25 19:44] LABS: Blood Morphology Comment NOT SEEN (NOT SEEN); Platelet Estimate DECR; White Blood Cell Scan OK (OK)
[2022-01-25 21:24] LABS: Potassium 3.4 mmol/L (3.5-5.1)
--- NOTE | 2022-01-25 21:36 | RAD REPORT ---
EXAM DESCRIPTION: CT - Head Brain Wo Cont - 01/25/2022 9:24 pm CLINICAL HISTORY: Headache, new or worsening COMPARISON: Head Brain Wo Cont dated 01/12/2022; Facial Bones W/ Mpr dated 01/04/2022 TECHNIQUE: All CT scans are performed using dose optimization technique as appropriate and may inclu de automated exposure control or mA/KV adjustment according to patient size. FINDINGS: No intracranial hemorrhage, hydrocephalus or extra-axial fluid collection.No areas of brai n edema or evidence of midline shift. Moderate chronic small vessel ischemic changes. The paranasal sinuses and mastoids are clear. The calvarium is intact. IMPRESSION: No acute intracranial abnormality.
[2022-01-25 22:15] LABS: Urine Blood Negative (Negative); Urine Glucose Negative (Negative); Urine Protein Negative (Negative); Urine Specific Gravity 1.025 (1.005-1.030)
--- NOTE | 2022-01-25 23:08 | ER ---
Nurse's Notes [facility] Name: Fawn Fleming Age: 67 yrs Sex: Female : 1955 Arrival Date: 01/25/2022 Time: 16:15 Bed 20 Private MD: Diagnosis: Essential (primary) hypertension;Chest pain, unspecified;COPD/ Chronic obstructive pulmonary disease, unspecified Presentation: 01/25 16:31 Chief complaint: Patient states: "Can't hardly breathe, chest hurts and it goes all the ko1 way around my head". Supposed to have preop on for a cardiac stent placement. Coronavirus screen: Client denies travel out of the [place] in the last 14 days. At this time, the client does not indicate any symptoms associated with coronavirus-19. Ebola Screen: No symptoms or risks identified at this time. Initial Sepsis Screen: Does the patient meet any 2 criteria? No. Patient's initial sepsis screen is negative. Does the patient have a suspected source of infection? No. Patient's initial sepsis screen is negative. Risk Assessment: Do you want to hurt yourself or someone else? Patient reports no desire to harm self or others. Onset of symptoms was January 25, 2022. 16:31 Method Of Arrival: Wheelchair ko1 16:31 Acuity: BLAYNE 4 ko1 Triage Assessment: 16:35 General: Appears in no apparent distress. Behavior is cooperative, appropriate for age, ko1 anxious. Pain: Complains of pain in left clavicle and anterior aspect of left upper chest Pain radiates to left parietal area, occipital area and base of the skull. Historical: - Allergies: 16:35 Bactrim DS; ko1 16:35 butorphanol tartrate; ko1 16:35 Reglan; ko1 16:35 Stadol; ko1 16:35 Fentanyl; ko1 16:35 TRIMETHOPRIM; ko1 16:35 sulfamethoxazole (bulk); ko1 - PMHx: 16:35 Anxiety; Bipolar disorder; Atrial Fib; COPD; Chronic pain; Hepatitis; esophageal ko1 varices; Hypertension; HIV; Migraines; Panic Attacks; - PSHx: 16:35 Appendectomy; Cholecystectomy; Bilateral shoulder repair; hernia repair; R wrist SX; ko1 - Immunization history:: Adult Immunizations unknown. - Social history:: Smoking status: Patient denies any tobacco usage or history of. Screenin:11 Abuse screen: Denies threats or abuse. Denies injuries from another. Nutritional lg3 screening: No deficits noted. Tuberculosis screening: No symptoms or risk factors identified. Fall Risk None identified. Assessment: 16:35 General: SEE TRIAGE NOTE. bp 18:45 Reassessment: No changes from previously documented assessment. Patient and/or family bp updated on plan of care and expected duration. Pain level reassessed. 19:11 General: Appears in no apparent distress. comfortable, Behavior is cooperative, lg3 anxious. Pain: Complains of pain in base of the skull and chest and anterior aspect of left upper chest and left clavicle. Neuro: No deficits noted. Level of Consciousness is awake, alert, obeys commands, Oriented to person, place, time, situation. Cardiovascular: Reports chest pain, Capillary refill < 3 seconds Clubbing of nail beds is absent JVD is absent Patient's skin is warm and dry. Respiratory: Reports shortness of breath Airway is patent Trachea midline Respiratory effort is even, unlabored, Respiratory pattern is regular, symmetrical, Breath sounds are clear bilaterally. GI: No deficits noted. No signs and/or symptoms were reported involving the gastrointestinal system. Abdomen is round non-distended, obese, Abd is soft and non tender X 4 quads. : No deficits noted. No signs and/or symptoms were reported regarding the genitourinary system. EENT: No deficits noted. No signs and/or symptoms were reported regarding the EENT system. Derm: No deficits noted. No signs and/or symptoms reported regarding the dermatologic system. Skin is intact, is thin, Skin is dry, Skin temperature is warm. Musculoskeletal: No deficits noted. No signs and/or symptoms reported regarding the musculoskeletal system. Circulation, motion, and sensation intact. Range of motion: intact in all extremities. 20:51 Reassessment: Patient appears in no apparent distress at this time. No changes from lg3 previously documented assessment. Patient and/or family updated on plan of care and expected duration. Pain level reassessed. Patient is alert, oriented x 3, equal unlabored respirations, skin warm/dry/pink. 23:22 Reassessment: Patient appears in no apparent distress at this time. No changes from lg3 previously documented assessment. Patient and/or family updated on plan of care and expected duration. Pain level reassessed. Patient is alert, oriented x 3, equal unlabored respirations, skin warm/dry/pink. Vital Signs: 16:31 BP 198 / 110; Pulse 59; Resp 22; Temp 98.2; Pulse Ox 100% ; Weight 79.38 kg; Height 5 ko1 ft. 4 in. (162.56 cm); Pain 10/10; 18:45 BP 208 / 108; Pulse 63; Resp 15; Pulse Ox 100% ; bp 19:41 BP 167 / 99; Pulse 68; Resp 17 S; Pulse Ox 100% on R/A; lg3 20:50 BP 180 / 109; Pulse 70; Resp 16 S; Pulse Ox 100% on R/A; lg3 21:55 BP 193 / 96; Pulse 66; Resp 17 S; Pulse Ox 99% on R/A; lg3 23:22 BP 177 / 98; Pulse 71; Resp 17 S; Pulse Ox 99% on R/A; lg3 16:31 Body Mass Index 30.04 (79.38 kg, 162.56 cm) ko1 ED Course: 16:15 Patient arrived in ED. rg4 16:15 Joey Jung MD is Attending Physician. kdr 16:35 Triage completed. ko1 16:35 Arm band placed on right wrist. Patient placed in waiting room, Patient notified of ko1 wait time. 16:41 EKG completed in triage. Results shown to MD. ko1 18:10 Carlos Eduardo Olivera, RN is Primary Nurse. bp 19:11 Patient has correct armband on for positive identification. Placed in gown. Bed in low lg3 position. Call light in reach. Side rails up X 1. Client placed on continuous cardiac and pulse oximetry monitoring. NIBP monitoring applied. panel monitor on. Door closed. Noise minimized. Warm blanket given. 19:12 Attending Physician role handed off by Joey Jung MD thomas 19:12 Justus Kolb MD is Attending Physician. thomas 19:18 IV is intact, 22 to right thumb inserted by previous shift. lg3 19:22 Primary Nurse role handed off by Carlos Eduardo Olivera, RN mw2 19:25 Christine Perdomo, ASHLEY is Primary Nurse. lg3 21:25 CT Head Brain wo Cont In Process Unspecified. EDMS 22:16 Urine collected: clean catch specimen, clear. wm 23:23 No provider procedures requiring assistance completed. IV discontinued, intact, lg3 bleeding controlled, No redness/swelling at site. Pressure dressing applied. Administered Medications: 18:45 Drug: morphine 4 mg Route: IVP; Infused Over: 4 mins; Site: right hand; bp 20:13 Follow up: Response: No adverse reaction; No change in condition; Pain is unchanged, lg3 physician notified 18:45 Drug: Zofran (Ondansetron) 4 mg Route: IVP; Site: right hand; bp 20:13 Follow up: Response: No adverse reaction lg3 18:50 Drug: hydrALAZINE 20 mg Route: IVP; Site: left hand; bp 20:13 Follow up: Response: No adverse reaction; Blood pressure is lowered lg3 20:12 Drug: Dilaudid (HYDROmorphone) 0.5 mg Route: IVP; Site: Other; lg3 20:49 Follow up: Response: No adverse reaction; No change in condition lg3 20:51 Drug: Tylenol 650 mg Route: PO; lg3 21:54 Follow up: Response: No adverse reaction lg3 20:51 Drug: HydrALAZINE 25 mg Route: PO; lg3 21:54 Follow up: Response: No adverse reaction; Blood pressure is lowered lg3 23:22 Drug: Potassium Effervescent Tablet 25 mEq Route: PO; lg3 23:22 Follow up: Response: No adverse reaction lg3 Medication: 23:23 VIS not applicable for this client. lg3 Outcome: 23:08 Discharge ordered by MD. guzman 23:23 Discharged to home ambulatory. lg3 23:23 Condition: stable 23:23 Discharge instructions given to patient, Instructed on discharge instructions, follow up and referral plans. medication usage, Demonstrated understanding of instructions, follow-up care, medications, Prescriptions given X 3. 23:31 Patient left the ED. lg3 Signatures: Dispatcher [employer] EDMS Justus Kolb MD MD cha Rittger, Kevin, MD MD kdr Garcia, Rubi [id number] Carlos Eduardo Olivera, RN RN bp Shimon Ruiz mw2 Christine Perdomo RN RN lg3 Nieves Isaacs Nancy Shannon RN RN [id number]
--- NOTE | 2022-01-25 23:09 | EDPHYS ---
Physician Documentation [facility] Name: Fawn Fleming Age: 67 yrs Sex: Female : 1955 Arrival Date: 01/25/2022 Time: 16:15 Bed 20 Private MD: ED Physician Justus Kolb HPI: 01/25 18:32 This 67 yrs old Female presents to ER via Wheelchair with complaints of Chest Pain. kdr 18:32 The patient or guardian reports chest pain that is located primarily in the substernal kdr area, anterior chest wall, left. Onset: yesterday. The pain does not radiate. Associated signs and symptoms: Pertinent positives: headache. The chest pain is described as aching, burning. Duration: The patient or guardian reports a single episode, that is still ongoing, and unchanged. Severity of pain: At its worst the pain was moderate severe in the emergency department the pain is unchanged. The patient has been recently seen at the [facility] Emergency Department, The patient has multiple recurrent ED visits for the same symptoms.. Historical: - Allergies: 16:35 Bactrim DS; ko1 16:35 butorphanol tartrate; ko1 16:35 Reglan; ko1 16:35 Stadol; ko1 16:35 Fentanyl; ko1 16:35 TRIMETHOPRIM; ko1 16:35 sulfamethoxazole (bulk); ko1 - PMHx: 16:35 Anxiety; Bipolar disorder; Atrial Fib; COPD; Chronic pain; Hepatitis; esophageal ko1 varices; Hypertension; HIV; Migraines; Panic Attacks; - PSHx: 16:35 Appendectomy; Cholecystectomy; Bilateral shoulder repair; hernia repair; R wrist SX; ko1 - Immunization history:: Adult Immunizations unknown. - Social history:: Smoking status: Patient denies any tobacco usage or history of. ROS: 18:32 Constitutional: Negative for fever, chills, and weight loss, Eyes: Negative for injury, kdr pain, redness, and discharge, ENT: Negative for injury, pain, and discharge, Neck: Negative for injury, pain, and swelling, Respiratory: Negative for shortness of breath, cough, wheezing, and pleuritic chest pain, Abdomen/GI: Negative for abdominal pain, nausea, vomiting, diarrhea, and constipation, Back: Negative for injury and pain, : Negative for injury, bleeding, discharge, and swelling, MS/Extremity: Negative for injury and deformity, Skin: Negative for injury, rash, and discoloration, Psych: Negative for depression, anxiety, suicide ideation, homicidal ideation, and hallucinations, Allergy/Immunology: Negative for hives, rash, and allergies, Endocrine: Negative for neck swelling, polydipsia, polyuria, polyphagia, and marked weight changes, Hematologic/Lymphatic: Negative for swollen nodes, abnormal bleeding, and unusual bruising. 18:32 Cardiovascular: Positive for chest pain, Negative for edema, orthopnea, palpitations, paroxysmal nocturnal dyspnea, acute changes. 18:32 Neuro: Positive for headache, Negative for hearing loss, loss of consciousness, numbness, seizure activity, speech changes, syncope, near syncope, tinnitus, tremor, visual changes. Exam: 16:56 ECG was reviewed by the Attending Physician. kdr 18:32 Constitutional: This is a well developed, well nourished patient who is awake, alert, kdr and in no acute distress. Head/Face: Normocephalic, atraumatic. Eyes: Pupils equal round and reactive to light, extra-ocular motions intact. Lids and lashes normal. Conjunctiva and sclera are non-icteric and not injected. Cornea within normal limits. Periorbital areas with no swelling, redness, or edema. Neck: Trachea midline, no thyromegaly or masses palpated, and no cervical lymphadenopathy. Supple, full range of motion without nuchal rigidity, or vertebral point tenderness. No Meningismus. Chest/axilla: Normal chest wall appearance and motion. Nontender with no deformity. No lesions are appreciated. Cardiovascular: Regular rate and rhythm with a normal S1 and S2. No gallops, murmurs, or rubs. Normal PMI, no JVD. No pulse deficits. Respiratory: Lungs have equal breath sounds bilaterally, clear to auscultation and percussion. No rales, rhonchi or wheezes noted. No increased work of breathing, no retractions or nasal flaring. Abdomen/GI: Soft, non-tender, with normal bowel sounds. No distension or tympany. No guarding or rebound. No evidence of tenderness throughout. Back: No spinal tenderness. No costovertebral tenderness. Full range of motion. Skin: Warm, dry with normal turgor. Normal color with no rashes, no lesions, and no evidence of cellulitis. MS/ Extremity: Pulses equal, no cyanosis. Neurovascular intact. Full, normal range of motion. Neuro: Awake and alert, GCS 15, oriented to person, place, time, and situation. Cranial nerves II-XII grossly intact. Motor strength 5/5 in all extremities. Sensory grossly intact. Cerebellar exam normal. Normal gait. Psych: Awake, alert, with orientation to person, place and time. Behavior, mood, and affect are within normal limits. 20:16 Neck: ROM/movement: is normal, no acute changes, Meningeal signs: are not present, thomas Kernig's sign is negative, Brudzinski's sign is negative. Vital Signs: 16:31 BP 198 / 110; Pulse 59; Resp 22; Temp 98.2; Pulse Ox 100% ; Weight 79.38 kg; Height 5 ko1 ft. 4 in. (162.56 cm); Pain 10/10; 18:45 BP 208 / 108; Pulse 63; Resp 15; Pulse Ox 100% ; bp 19:41 BP 167 / 99; Pulse 68; Resp 17 S; Pulse Ox 100% on R/A; lg3 20:50 BP 180 / 109; Pulse 70; Resp 16 S; Pulse Ox 100% on R/A; lg3 21:55 BP 193 / 96; Pulse 66; Resp 17 S; Pulse Ox 99% on R/A; lg3 23:22 BP 177 / 98; Pulse 71; Resp 17 S; Pulse Ox 99% on R/A; lg3 16:31 Body Mass Index 30.04 (79.38 kg, 162.56 cm) ko1 MDM: 19:12 Patient medically screened. thomas 20:32 Differential diagnosis: abnormal EKG, acute myocardial infarction, coronary artery thomas disease chest wall pain, pleurisy, stable angina, unstable angina. HEART Score: ECG: Normal (0), Age: > or = 65 years (2), Risk Factors: > or = 3 Risk factors for atherosclerotic disease (2), [Hypercholesterolemia] [Hypertension] [DM] [+ Family HX] [Obesity] Troponin: < or = 1 x Normal Limit (0). The patient was given aspirin in the Emergency Department. The patient's deep vein thrombosis risk score was calculated as follows: Total Score: 0. This patient was found to be at low risk for a deep vein thrombosis by using the Well's assessment criteria. The patient's pulmonary embolism risk score was calculated as follows: Total Score: 0-2 points. This patient was found to be at low risk for a pulmonary embolism by using the Well's assessment criteria. MONI Risk Score: 1 - patient's age is greater or equal to 65 years, 1 - Three or more CAD risk factors, 1- Known CAD, TOTAL SCORE = 3. Data reviewed: vital signs, nurses notes, lab test result(s), EKG, radiologic studies, CT scan, plain films. 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 Test interpretation: by ED physician or midlevel provider: ECG, plain radiologic studies. 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 01/25 18:08 Order name: Basic Metabolic Panel; Complete Time: 22:04 [facility] 01/25 18:08 Order name: CBC with Diff; Complete Time: 19:54 [facility] 01/25 18:08 Order name: Troponin HS; Complete Time: 22:04 [facility] 01/25 19:45 Order name: CBC Smear Scan; Complete Time: 19:54 [facility] 01/25 19:55 Order name: Troponin High Sensitivity: 3 hrs after 1st trop [facility] 01/25 22:16 Order name: Urine Dipstick-Ancillary; Complete Time: 23:05 [facility] 01/25 20:15 Order name: CT Head Brain wo Cont; Complete Time: 22:04 [facility] 01/25 18:08 Order name: EKG; Complete Time: 18:10 [facility] 01/25 18:08 Order name: Cardiac monitoring; Complete Time: 18:30 [facility] 01/25 18:08 Order name: EKG - Nurse/Tech; Complete Time: 18:17 [facility] 01/25 18:08 Order name: IV Saline Lock; Complete Time: 18:30 [facility] 01/25 18:08 Order name: Labs collected and sent; Complete Time: 18:50 [facility] 01/25 19:03 Order name: Labs - recollect needed: recollect green top; Complete Time: 20:43 01/25 21:27 Order name: Urine Dipstick-Ancillary (obtain specimen); Complete Time: 22:17 thomas EC:56 Rate is 58 beats/min. Rhythm is regular, Junctional rhythm with No ectopy. OK interval kdr is normal. QRS interval is normal. QT interval is normal. Clinical impression: Junctional rhythm. Administered Medications: 18:45 Drug: morphine 4 mg Route: IVP; Infused Over: 4 mins; Site: right hand; bp 20:13 Follow up: Response: No adverse reaction; No change in condition; Pain is unchanged, lg3 physician notified 18:45 Drug: Zofran (Ondansetron) 4 mg Route: IVP; Site: right hand; bp 20:13 Follow up: Response: No adverse reaction lg3 18:50 Drug: hydrALAZINE 20 mg Route: IVP; Site: left hand; bp 20:13 Follow up: Response: No adverse reaction; Blood pressure is lowered lg3 20:12 Drug: Dilaudid (HYDROmorphone) 0.5 mg Route: IVP; Site: Other; lg3 20:49 Follow up: Response: No adverse reaction; No change in condition lg3 20:51 Drug: Tylenol 650 mg Route: PO; lg3 21:54 Follow up: Response: No adverse reaction lg3 20:51 Drug: HydrALAZINE 25 mg Route: PO; lg3 21:54 Follow up: Response: No adverse reaction; Blood pressure is lowered lg3 23:22 Drug: Potassium Effervescent Tablet 25 mEq Route: PO; lg3 23:22 Follow up: Response: No adverse reaction lg3 Disposition Summary: 01/25/22 23:08 Discharge Ordered Location: Home thomas Problem: new thomas Symptoms: have improved thomas Condition: Stable thomas Diagnosis - Essential (primary) hypertension thomas - Chest pain, unspecified thomas - COPD/ Chronic obstructive pulmonary disease, unspecified thomas Followup: thomas - With: Private Physician - When: 2 - 3 days - Reason: Recheck today's complaints, Continuance of care, Re-evaluation by your physician Discharge Instructions: - Discharge Summary Sheet thomas - Nonspecific Chest Pain, Adult thomas - Chronic Obstructive Pulmonary Disease thomas - Hypertension, Adult thomas - Nonspecific Chest Pain, Adult, [id number] thomas - Hypertension, Adult, [id number] thomas - How to Take Your Blood Pressure, [id number] thomas - Aspirin and Your Heart thomas - Managing Your Hypertension thomas Forms: - Medication Reconciliation Form thomas - Thank You Letter thomas - Antibiotic Education thomas - Prescription Opioid Use thomas Prescriptions: - Lopressor 50 mg Oral Tablet - take 2 tablet by ORAL route every 12 hours; 60 tablet; Refills: 0, Product thomas Selection Permitted - Norvasc 10 mg Oral Tablet - take 1 tablet by ORAL route once daily; 30 tablet; Refills: 0, Product thomas Selection Permitted - Hydralazine 25 mg Oral Tablet - take 1 tablet by ORAL route every 12 hours with food; 30 tablet; Refills: 0, thomas Product Selection Permitted Signatures: Dispatcher [employer] EDJustus Perrin MD MD cha Rittger, Kevin, MD MD kdr Peltier, Brian RN RN Jo Ann Hamilton Lacie, RN RN lg3 Daysi Mendez PA PA sb3 Nancy Shannon RN RN ko1
[2022-01-26 02:58] VITALS: TEMP 98.2
[2022-01-26 03:09] VITALS: O2SAT 99
[2022-01-26 03:11] VITALS: BP 177/98
--- NOTE | 2022-01-26 14:32 | EKG ---
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
== END 2022-01-25 23:31 | disposition home or self-care (01) ==
LOC: ER 16:04
DX: R07.89 Other chest pain (principal); I10 Essential (primary) hypertension; J44.9 Chronic obstructive pulmonary disease, unspecified; F31.9 Bipolar disorder, unspecified; Z21 Asymptomatic human immunodeficiency virus [HIV] infection status; Z88.1 Allergy status to other antibiotic agents; Z88.2 Allergy status to sulfonamides; Z88.5 Allergy status to narcotic agent; Z88.8 Allergy status to other drugs, medicaments and biological substances
CPT/HCPCS: 36415; 70450; 80048; 81003; 84484; 85025; 93005; 99284

== ENCOUNTER 2022-01-29 14:04 | Emergency (ER) | payer OTHER ==
--- OUTSIDE RECORDS SUMMARY | 2022-01-29 14:16 | XMS REPORT | Continuity of Care Document ---
:1955 Author Organization [facility] t Address [address] [place] [address] Care Team Providers Name Role Phone Urmila Rahman Primary Care Physician ELAN LIRA Attending Clinician Unavailable SANTIAGO MAST Attending Clinician Unavailable Doctor Unassigned, [place] Attending Clinician Unavailable Bill GUO Attending Clinician Unavailable Bill Rose Attending Clinician [facility] Attending Clinician Unavailable Santiago Sanchez Attending Clinician Mike Lund Attending Clinician Unavailable Beverly Layton MD Attending Clinician Eliseo Arce MD Attending Clinician Carol Ann RIDING DOUBLE, Sarai Lieberman Attending Clinician [phone] Ashly Pelletier MA Attending Clinician Unavailable Robbi Bal Attending Clinician Monica Rodas MA Attending Clinician Unavailable Agustina Ortiz MA Attending Clinician Unavailable Kirit Flood MD, V. Attending Clinician BEVERLY LAYTON Attending Clinician Unavailable DO PORSHA STREETER Attending Clinician Unavailable Bill GUO Admitting Clinician Unavailable RahmanLele bird Kristen Admitting Clinician Unavailable Mike Lund Admitting Clinician Unavailable ELISEO ARCE Admitting Clinician Unavailable DO PORSHA STREETER Admitting Clinician Unavailable Payers Payer Name Policy Type Policy Number Effective Date Expiration Date S gabino [facility] [id number] 2012 STARPLUS OON 00:00:00 EXCEPT [facility] D[facility] [id number] 2020 COMP HMO D SNP 00:00:00 MEDICAID OF [place] [id number] 2020 00:00:00 Problems Condition Condition Condition Status Onset Resolution Last Treating Co mments Source Name Details Category Date Date Treatment Clinician Date Gastropare Gastropare Disease Active Overview : Methodi sis sis 4-[address] 00:00: [facility] note l might be different from the original. Added automatic ally from request for surgery [id number] Dysphagia Dysphagia Disease Active Overview: Methodi 4-[address] 00:00: [facility] this [facility] 00 note l might be different from the original. 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 2020-10-15 Memoria PVI PVI 3-30 17:07:00 l ABLATION ABLATION 00:00: Patel soares W/ CARTO / W/ CARTO / 00 GA / T GA / T Active 08/19/2020 [facility] Food Food Disease Active 2019-05 Methodi intoleranc [...] [facility] hoxazole 1- Clear 00:00: Garcia 00 [facility] trimetho DA Active SV [facility] prim 1- Clear 00:00: Garcia [facility] codeine DA Active SV N/V H[facility] 1-25 Clear 00:00: Garcia [facility] Metoclop Propensi Active [place] ramide ty to 12-12 Health adverse 00:00: reaction 00 s BUTORPHA DRUG Active Unknown-Cmnt Un matt NOL INGREDI 11-25 ity of 00:00: [place] [facility] Butorpha Drug Active Unknown - [...] TRIMETHO DRUG Active Hives Univers PRIM INGREDI 2- ity of 00:00: Medical Branch Fentanyl Drug Active Other - See Unknown Un matt Allergy comments 06-30 reaction ity o f 00:00: 00 Medical Branch Fentanyl Allergy Active Unknown Other UT to 208 reaction( Health substanc 00:00: s): e 00 HivesUnkn own reactionU nknown reactionU nknown reactionU nknown reactionU nknown reaction Trimetho Propensi Active Hives 0 Univer s prim ty to 2-08 ity [...] Center Natural father Kidney disease Method ist [facility] mother [facility] Social History Social Habit Start Date Stop Date Quantity Comments Source History of tobacco Cigarette Smoker [facility] use [facility] SDOH [facility] Frequency Hospita l History SDOH [facility] Alcohol Std Drinks Hospit al History SDVA [facility] Exposure to 2021-12-02 2021-12-12 Not sure University SARS-CoV-2 (event) 00:00:00 23:54:00 [facility] Alcohol intake 2020-12-08 2020-12-08 Current drinker [facility] 00:00:00 00:00:00 of alcohol Hospital (finding) Cigarettes smoked 2020-09-05 2020-09-[address] current (pack per 00:00:00 00:00:00 Hospita l day) - Reported Cigarette 2020-09-05 2020-09-05 [facility] pack-[facility] 00:[facility]:00 00:00:00 Hospital Tobacco use and 2020-08-06 2020-08-06 Former smokeless Uni versity of exposure 00:00:00 00:00:00 tobacco user [facility] Alcohol Comment 2016-09-23 2016-09-23 rare [facility] 00:[facility]:00 Hospital Tobacco Comment 2015-02-14 2015-02-14 Smokes approx 1-2 Un iversity of 00:00:00 00:00:00 cigarettes per [facility] when she Branch smokes Sex Ass[birth year] [facility] 00:00:00 00:00:00 Smoking Status Start Date Stop Date Source Ex-smoker 2020-08-06 00:00:00 2020-08-06 00:00:00 [facility] Medications Ordered Filled Start Stop Current Ordering Indication Dosage Frequency Signature Comments Components Source Medication Medication Date Date Medication? Clinician (SIG) Name Name methocarbam No 500mg 500 mg, U nivers oL 12-13 Oral, ity of (ROBAXIN) 07:45: 06:35 ONCE, [place] tablet 500 [place] :00 dose, On Medic al mg [facility] 12/13/21 at 0245, Routine ketorolac No 30mg 30 mg, Unive rs (TORADOL) 12-13 Intramuscu ity of injection 07:45: 06:34 lar, ONCE, [place] 30 mg 00 :00 1 dose, On Medical [place] 12/13/21 at 0245, JOE naproxen 2022-0 Yes [id number] 500mg Take 1 U nivers (NAPROSYN) 7-24 tablet by ity of 500 mg 00:00: mouth in [place] tablet 00 the Medical morning Branch and 1 tablet in the evening. Take with meals. methocarbam 2022-0 Yes [id number] 500mg Take 1 Univers oL 500 mg 7-24 tablet by ity o f tablet 00:00: mouth 4 [place] ([facility]) Medical times Bric[place] daily. naproxen 2022-0 Yes [id number] 500mg Take 1 U nivers (NAPROSYN) 7-24 tablet by ity of 500 mg 00:00: mouth in [place] tablet 00 the Medical morning Branch and 1 tablet in the evening. Take with meals. methocarbam 2022-0 Yes [id number] 500mg Take 1 Univers oL 500 mg 7-24 tablet by ity o f tablet 00:00: mouth 4 [place] [address] ([facility]) Medical times [place] daily. naproxen 2022-0 Yes [id number] 500mg Take 1 U nivers (NAPROSYN) 7-24 tablet by ity of 500 mg 00:00: mouth in [place] tablet 00 the Medical morning Branch and 1 tablet in the evening. Take with meals. methocarbam 2022-0 Yes [id number] 500mg Take 1 Univers oL 500 mg 7-24 tablet by ity o f tablet 00:00: mouth 4 [place] [address] ([facility]) Medical times [place] daily. hydralAZINE 2022-0 Yes 25mg Take 25 mg Univers (APRESOLINE 7-01 by mouth ity of ) 25 mg 08:47: daily. [address] Branch hydralAZINE 2022-0 Yes 25mg Take 25 mg Univers (APRESOLINE 7-01 by mouth ity of ) 25 mg 08:47: daily. [address] Branch hydralAZINE 2022-0 Yes 25mg Take 25 mg Univers (APRESOLINE 7-01 by mouth ity of ) 25 mg 08:47: daily. [address] hydralAZINE 2022-0 Yes 25mg Take 25 mg Univers (APRESOLINE 7-01 by mouth ity of ) 25 mg 08:47: daily. [address] buPROPion 2021-0 Yes [id number] 150mg Take 1 U nivers XL 4-12 tablet by ity of (WELLBUTRIN 00:00: mouth [place] XL) 150 mg 00 daily. Medical 24 hr Branch tablet busPIRone 2021-0 Yes [id number] 30mg Take 1 Un matt 30 mg 4-12 tablet by ity of tablet 00:00: mouth 2 (two) Medical times Branch daily. SERTraline 2021-0 Yes [id number] 200mg Take 2 Univers 100 mg 4-12 tablets by ity of tablet 00:00: mouth [place] 00 daily. Medical Branch buPROPion 2021-0 Yes [id number] 150mg Take 1 U nivers XL 4-12 tablet by ity of (WELLBUTRIN 00:00: mouth [place] XL) 150 mg 00 daily. Medical 24 hr Branch tablet busPIRone 2021-0 Yes [id number] 30mg Take 1 Un matt 30 mg 4-12 tablet by ity of tablet 00:00: mouth 2 (two) Medical times Branch daily. SERTraline 2021-0 Yes [id number] 200mg Take 2 Univers 100 mg 4-12 tablets by ity of tablet 00:00: mouth [place] 00 daily. Medical Branch buPROPion 2021-0 Yes [id number] 150mg Take 1 U nivers XL 4-12 tablet by ity of (WELLBUTRIN 00:00: mouth [place] XL) 150 mg 00 daily. Medical 24 hr Branch tablet busPIRone 2021-0 Yes [id number] 30mg Take 1 Un matt 30 mg 4-12 tablet by ity of tablet 00:00: mouth 2 (two) Medical times Branch daily. SERTraline 2021-0 Yes [id number] 200mg Take 2 Univers 100 mg 4-12 tablets by ity of tablet 00:00: mouth [place] 00 daily. Medical Branch buPROPion 2021-0 Yes [id number] 150mg Take 1 U nivers XL 4-12 tablet by ity of (WELLBUTRIN 00:00: mouth [place] XL) 150 mg 00 daily. Medical 24 hr Branch tablet busPIRone 2021-0 Yes [id number] 30mg Take 1 Un matt 30 mg 4-12 tablet by ity of tablet 00:00: mouth 2 [place] 00 (two) Medical times Branch daily. SERTraline 2021-0 Yes [id number] 200mg Take 2 Univers 100 mg 4-12 tablets by ity of tablet 00:00: mouth [place] 00 daily. Medical Branch raltegravir 2021-0 Yes [id number] 400mg Take 1 Univers (ISENTRESS) 3-28 tablet by ity of 400 mg 00:00: mouth 2 [place] tablet 00 (two) Medical times Branch daily. raltegravir 2021-0 Yes [id number] 400mg Take 1 Univers (ISENTRESS) 3-28 tablet by ity of 400 mg 00:00: mouth 2 [place] tablet 00 (two) Medical times Branch daily. raltegravir 2021-0 Yes [id number] 400mg Take 1 Univers (ISENTRESS) 3-28 tablet by ity of 400 mg 00:00: mouth 2 [place] tablet 00 (two) Medical times Branch daily. raltegravir 2021-0 Yes [id number] 400mg Take 1 Univers (ISENTRESS) 3-28 tablet by ity of 400 mg 00:00: mouth 2 [place] tablet 00 (two) Medical times Branch daily. raltegravir 2021-0 Yes [id number] 400mg Take 1 Univers (ISENTRESS) 3-28 tablet by ity of 400 mg 00:00: mouth 2 [place] tablet 00 (two) Medical times Branch daily. LORazepam 1 2021-0 Yes [id number] 1mg Take 1 Univers mg tablet 3-21 [...] a tablet day. buPROPion 2021-0 202- No [id number] 150mg Take 1 Univers XL 1-24 04-12 tablet by ity of (WELLBUTRIN 00:00: 00:00 [place] XL) 150 mg 00 :00 daily. Medical 24 hr Branch tablet busPIRone 2021- No [id number] 30mg Take 1 U nivers 30 mg 06-15-12 tablet by ity of tablet 00:00: 00:00 mouth 2 [place] 00 :00 (two) Medical times Branch daily. SERTraline 2021- No [id number] 200mg Take 2 Univers 100 mg 06-15-12 tablets by ity of tablet 00:00: 00:00 mouth [place] 00 :00 daily. Medical Branch emtricitabi Yes [id number] Take one Univers ne-tenofovi 1-20 po daily ity of r alafen 00:00: [place] (DESCOVY) 00 Medical tablet Branch emtricitabi Yes [id number] Take one Univers ne-tenofovi 1-20 po daily ity of r alafen 00:00: [place] (DESCOVY) 00 Medical tablet Branch emtricitabi Yes [id number] Take one Univers ne-tenofovi 1-20 po daily ity of r alafen 00:00: [place] (DESCOVY) 00 Medical tablet Branch emtricitabi Yes [id number] Take one Univers ne-tenofovi 1-20 po daily ity of r alafen 00:00: [place] (DESCOVY) 00 Medical tablet Branch emtricitabi Yes [id number] Take one Univers ne-tenofovi 1-20 po daily ity of r alafen 00:00: [place] (DESCOVY) 00 Medical tablet Branch metoprolol Yes [id number] Take 1 [facility] tartrate 7-26 tablet Health (Lopressor) 00:00: (100 mg 100 MG 00 total) by tablet mouth 2 (two) times a day AND 0.5 tablets (50 mg total) every night. metoprolol Yes [id number] Take 1 [place] tartrate 7-26 tablet Health [...] (affected area in groin) hydrALAZINE Yes 50mg Q.[id number] Take 50 mg Methodi (APRESOLINE 7-19 [id number] mouth [address] ) 50 MG [...] area in groin) hydrALAZINE 2021-0 Yes 50mg Q.[id number] Take 50 mg Methodi (APRESOLINE 7-19 [id number] [address] mouth 3 st ) 50 MG [...] (affected area in groin) hydrALAZINE Yes 50mg Q.[id number] Take 50 mg Methodi (APRESOLINE 7-19 [id number] mouth 3 st ) 50 MG [...] area in groin) hydrALAZINE 0 Yes 50mg Q.[id number] Take 50 mg Methodi (APRESOLINE 7-19 [id number] mouth 3 [address] ) 50 MG [...] area in groin) hydrALAZINE 0 Yes 50mg Q.[id number] Take 50 mg Methodi (APRESOLINE 7-19 [id number] mouth [address] ) 50 MG [...] tablet 25 daily. l nystatin-tr 0 Yes [id number] Apply to [facility] 7-06 area(s) 3 ity of cream 00:00: (three) [place] 00 times Medical daily. Branch nystatin-tr 2020-0 Yes [id number] [facility] ity of cream 00:00: (three) [place] 00 times Medical daily. Branch nystatin-tr 202-0 Yes [id number] Apply to [facility] 7-06 area(s) 3 ity of cream 00:00: (three) [place] 00 times Medical daily. Branch nystatin-tr 2020-0 Yes [id number] Apply to [facility] 7-06 area(s) 3 ity of cream 00:00: (three) [place] 00 times Medical daily. Branch nystatin-tr 2020-0 Yes [id number] Apply to [facility] 7-06 area(s) 3 ity of cream 00:00: (three) [place] 00 times Medical daily. Branch budesonide- 2020-0 2021- No 1{puff} QD Inhale 1 Methodi formoteroL 11-14 06-[address] (SYMBICORT) 14:37: 00:00 morning. H ospita 160-4.5 02 :00 l mcg/actuati on inhaler hydrALAZINE 0 Yes [id number] 50mg Q.[id number] Take 1 UT (Apresoline 10-31 [id number] tablet (50 Health ) 50 MG 00:00: 3D mg total) tablet 00 by mouth 3 (three) times a day. hydrALAZINE Yes [id number] 50mg Q.[id number] Take 1 UT (Apresoline 6 [id number] tablet (50 Health ) 50 MG 00:00: [...] % 00:00: ointment 00 nystatin 2020- No [id number] Q.25D Take 5 mL Methodi (MYCOSTATIN 10-06 06-01 (500,000 st ) 100,000 00:00: 04:59 Units Hospit a unit/mL 00 :00 total) by l suspension mouth 4 (four) times a day for 14 days. Swish in mouth sucralfate 2020- No 1g Q.25D Take 10 mL Methodi (Carafate) 10-06 0528 ([address] 100 mg/mL 00:00: 04:59 [...] time tablet 00 each day. Eliquis 5 0 Yes UT MG tablet [...] e 4-10 Tablet l 14:00: should not [place] 00 be chewed or crushed. (Same as: Protonix) Amiodarone No Notes: Memor ia 4-10 (Same as: l 14:00: Cordarone) [place] Amlodipine No Notes: Memor ia 4-10 (Same as: l 14:00: Norvasc) [place] emtricitabi No Notes: Caesar lisa ne 200 MG / 4-10 (Same as: l tenofovir 14:00: Descovy) Herm ariel alafenamide 00 Non-formul 25 MG Oral nancy Tablet [Descovy] Sertraline No Notes: Memor ia 4-10 (Same as: l 14:00: Zoloft) [place] 00 Sertraline No Notes: Memor ia 4-10 (Same as: l 14:00: Zoloft) [place] 00 pantoprazol No Notes: Caesar lisa e 4-10 Tablet l 14:00: should not [place] 00 be chewed or crushed. (Same as: Protonix) Amiodarone No Notes: Memor ia 4-10 (Same as: l 14:00: Cordarone) [place] 00 Amlodipine No Notes: Memor ia 4-10 (Same as: l 14:00: Norvasc) emtricitabi No Notes: Caesar lisa ne 200 MG / 4-10 (Same as: l tenofovir 14:00: Descovy) Herm ariel alafenamide 00 Non-formul 25 MG Oral nancy Tablet [Descovy] Sertraline No Notes: Memor ia 4-10 (Same as: l 14:00: Zoloft) pantoprazol No Notes: Caesar lisa e 4-10 Tablet l 14:00: should not [place] 00 be chewed or crushed. (Same as: [...] ia 4-10 (Same as: l 14:00: Zoloft) [place] 00 pantoprazol No Notes: Caesar lisa e 4-10 Tablet l 14:00: should not [place] 00 be chewed or crushed. (Same as: [...] ia 4-10 (Same as: l 14:00: Zoloft) [place] pantoprazol No Notes: Caesar lisa e 4-10 Tablet l 14:00: should not [place] 00 be chewed or crushed. (Same as: Protonix) Amiodarone No Notes: Memor ia 4-10 (Same as: l 14:00: Cordarone) [place] Amlodipine No Notes: Memor ia 4-10 (Same as: l 14:00: Norvasc) [place] emtricitabi No Notes: Caesar lias ne 200 MG / 4-10 (Same as: l tenofovir 14:00: Descovy) Herm ariel alafenamide 00 Non-formul 25 MG Oral nancy Tablet [Descovy] Sertraline No Notes: Memor ia 4-10 (Same as: l 14:00: Zoloft) [place] pantoprazol No Notes: Caesar lisa e 4-10 Tablet l 14:00: should not [place] 00 be chewed or crushed. (Same as: Protonix) Amiodarone No Notes: Memor ia 4-10 (Same as: l 14:00: Cordarone) [place] Sucralfate No Notes: May M emoria 4-10 interfere l 02:00: w/enteral [place] 00 feeds - Take 1 hr before or 2 hr after antacids, dairy pdt, meals & minerals - On empty stomach. For patients unable to swallow tablet, dissolve in 10mL - 30mL of water or juice and stir before giving. (Same As: Carafate) Saline No Notes: Memoria Flush 0.9% 4-10 (Same as: l 02:00: BD [place] 00 Posiflush) Eliquis No Notes: Memoria 4-10 Same as: l 02:00: Eliquis [place] Hydralazine No Notes: Caesar lisa Hydrochlori 4-10 [...] 0.9% 4-10 (Same as: l 02:00: BD [place] 00 Posiflush) Eliquis No Notes: Memoria 4-10 Same as: l 02:00: Eliquis [place] Hydralazine No Notes: Caesar lisa Hydrochlori 4-10 [...] 0.9% 4-10 (Same as: l 02:00: BD [place] 00 Posiflush) Eliquis No Notes: Memoria 4-10 Same as: l 02:00: Eliquis [place] 00 Hydralazine No Notes: Caesar lisa Hydrochlori 4-10 (Same as: l de 50 MG 02:00: Apresoline Her mitchell Oral Tablet 00 ) May interfere w/enteral feedings Take With Food Sucralfate No Notes: May M emoria 4-10 interfere l 02:00: w/enteral [place] 00 feeds - Take 1 hr before [...] Memoria 4-10 Same as: l 02:00: Eliquis [place] 00 Hydralazine No Notes: Caesar lisa Hydrochlori 4-10 (Same as: l de 50 MG 02:00: Apresoline Her mitchell Oral Tablet 00 ) May interfere w/enteral feedings Take With Food Sucralfate No Notes: May M emoria 4-10 interfere l 02:00: w/enteral [place] 00 feeds - Take 1 hr before [...] Memoria 4-10 Same as: l 02:00: Eliquis [place] Hydralazine No Notes: Caesar lisa Hydrochlori 4-10 (Same as: l de 50 MG 02:00: Apresoline Her mitchell Oral Tablet 00 ) May interfere w/enteral feedings Take With Food Sucralfate No Notes: May M emoria 4-10 interfere l 02:00: w/enteral [place] 00 feeds - Take 1 hr before [...] Memoria 4-10 Same as: l 02:00: Eliquis [place] 00 Hydralazine No Notes: Caesar lisa Hydrochlori 4-10 (Same as: l de 50 MG 02:00: Apresoline Her mitchell Oral Tablet 00 ) May interfere w/enteral feedings Take With Food Sucralfate No Notes: May M emoria 4-10 interfere l 02:00: w/enteral [place] 00 feeds - Take 1 hr before or 2 hr after antacids, dairy pdt, meals & minerals - On empty stomach. For patients unable to swallow tablet, dissolve in 10mL - 30mL of water or juice and stir before giving. (Same As: Carafate) Saline No Notes: Memoria Flush 0.9% 4-10 (Same as: l 02:00: BD [place] Posiflush) Eliquis No Notes: Memoria 4-10 Same as: l 02:00: Eliquis [place] 00 Hydralazine No Notes: Caesar lisa Hydrochlori [...] not exceed l #3 00:12: 4gm/day of [place] acetaminop hen. (Same as: Tylenol with Codeine # 3) acetaminoph No Notes: Do M emoria en-codeine 4-10 not exceed l #3 00:12: 4gm/day of [place] acetaminop hen. (Same as: Tylenol with Codeine [...] oria 4-09 tab, l 22:00: Route: PO, [place] 00 Drug form: TAB, BID, Dosing Weight 97.273, kg, Start date: 08/29/20 17:00:00 CDT, Duration: 30 day, Stop date: 09/28/20 9:00:00 CDT metoprolol 1-0 No 100 mg, 1 Me moria tartrate 4-09 tab, l 22:00: Route: PO, [place] Drug form: TAB, BID, Dosing Weight 97.273, [...] oria - tab, l 22:00: Route: PO, [place] 00 Drug form: TAB, BID, Dosing Weight [...] tab, l Tablet 22:00: Route: PO, Skylar [[facility]] Drug form: TAB, BID, Dosing Weight 97.273, kg, Start date: 08/29/20 17:00:00 CDT, Duration: 30 day, Stop date: 09/28/20 9:00:00 CDT, 0 Buspirone 2020-0 No Notes: Katieori a 08-29 (Same As: l 22:00: BuSpar) [...] Notes: Memoria 4-09 (Same l 17:07: as:MORPhin [place] 00 e Sulfate) Morphine 2021-0 No Notes: Memoria 4- (Same l 17:07: as:MORPhin [place] 00 e Sulfate) Morphine 2020-0 No Notes: Memoria 4- (Same l 17:07: as:MORPhin [place] 00 e Sulfate) Morphine 2020-0 No Notes: Memoria - (Same l 17:07: as:MORPhin [place] 00 e Sulfate) buPROPion 2020-0 No 150 [...] Stop date: 09/27/20 11:00:00 CDT, 0 neostigmine 2020-0 No Route: IV, Memoria (ANES) [...] tab, PO, l oral 15:27: Daily, # [place] enteric 00 30 tab, 0 coated Refill(s), tablet Pharmacy: [facility] 149, 162.56, cm, 08/29/20 5:30:00 CDT, Height, 97.273, kg, 08/29/20 5:30:00 CDT, Weight pantoprazol 2020-0 Yes 40 mg = 1 M emoria e 40 mg 4-09 tab, PO, l oral 15:27: Daily, # [place] enteric 00 30 tab, 0 coated Refill(s), [...] 30 tab, 0 coated Refill(s), tablet [facility], 162.56, cm, 08/29/20 5:30:00 [...] tab, PO, l oral 15:27: Daily, # [place] enteric 00 30 tab, 0 coated Refill(s), tablet Pharmacy: [facility] 149, 162.56, cm, 08/29/20 5:30:00 CDT, Height, 97.273, kg, 08/29/20 5:30:00 CDT, Weight pantoprazol 2020-0 Yes 40 mg = 1 M emoria e 40 mg 4-09 tab, PO, l oral 15:27: Daily, # Mraty enteric 00 30 tab, 0 coated Refill(s), tablet [facility], 162.56, cm, 08/29/20 5:30:00 [...] Skylar nn 00 tab, 0 Refill(s), [facility], 162.56, cm, 08/29/20 5:30:00 CDT, Height, 97.273, kg, 08/29/20 5:30:00 CDT, Weight pantoprazol 2020-0 No 40 mg = 1 M emoria e 40 mg 4-09 tab, PO, l oral 15:26: Daily, # [place] enteric 00 30 tab, 0 coated Refill(s) [...] tab, PO, l oral 15:26: Daily, # [place] enteric 00 30 tab, 0 coated Refill(s) [...] tab, PO, l oral 15:26: Daily, # [place] enteric 00 30 tab, 0 coated Refill(s) [...] tab, PO, l oral 15:26: Daily, # [place] enteric 00 30 tab, 0 coated Refill(s) tablet sucralfate Yes 1 gm = 1 Mem oria 1 g oral 4-09 tab, PO, l tablet 15:26: Q12H, # 28 Skylar nn 00 tab, 0 Refill(s), Pharmacy: [facility] 149, 162.56, cm, 08/29/20 5:30:00 CDT, Height, 97.273, kg, 08/29/20 5:30:00 CDT, Weight Saline No Notes: Memoria Flush 0.9% 4- (Same as: l 15:25: BD [place] Posiflush) Lorazepam No Notes: Memori a 4-09 (Same as: l 15:25: Ativan) [place] Saline No Notes: Memoria Flush 0.9% 4-09 (Same as: l 15:25: BD [place] 00 Posiflush) Lorazepam No Notes: Memori a 4-09 (Same as: l 15:25: Ativan) [place] 00 Saline No Notes: Memoria Flush 0.9% 4-09 (Same as: l 15:25: BD [place] 00 Posiflush) Saline No Notes: Memoria Flush [...] 9:49:00 CDT heparin 2020-0 No Route: IV, Caeasr lisa (ANES) 08-29 Drug form: l 14:49: [...] 08-29 Route: PO, l 14:01: Drug form: [place] 00 TAB, ONCE, Dosing Weight 97.273, kg, [...] lisa 08-29 Route: l 14:01: IVP, PRN, [place] 00 Dosing Weight 97.273, kg, PRN Benzodiaze [...] ia 08-29 Route: l 14:01: IVP, ONCE, [place] 00 Dosing Weight 97.273, kg, PRN Nausea [...] lisa 08-29 Route: l 14:01: IVP, PRN, [place] 00 Dosing Weight 97.273, kg, PRN Benzodiaze [...] ia 08-29 Route: l 14:01: IVP, ONCE, [place] 00 Dosing Weight 97.273, kg, PRN Nausea & Vomiting, Start date: 08/29/20 9:01:00 CDT Labetalol 2021-0 No 10 mg, Memori a 08-29 Route: l 14:01: IVP, [place] 00 Q5Min, Dosing Weight 97.273, kg, PRN [...] 08-29 Route: PO, l 14:01: Drug form: [place] 00 TAB, ONCE, Dosing Weight 97.273, kg, [...] oria ne 08-29 Route: l 14:01: IVP, [place] 00 Q5Min, Dosing Weight 97.273, kg, PRN Pain Score 7-10, Start date: 08/29/20 9:01:00 CDT, Duration: 4 doses or times, Stop date: Limited # of times Flumazenil 2021-0 No 0.2 mg, Caesar lisa 08-29 Route: l 14:01: IVP, PRN, [place] 00 Dosing Weight 97.273, kg, PRN Benzodiaze pine Reversal, Initial dose, Start date: 08/29/20 9:01:00 CDT, Duration: 30 day, Stop date: 09/28/20 9:00:00 CDT Naloxone 2021-0 No 0.4 mg, Memori a 08-29 Route: l 14:01: IVP, [place] 00 Q2MIN, Dosing Weight 97.273, kg, PRN [...] Memori a 08-29 Route: l 14:01: IVP, [place] 00 Q5Min, Dosing Weight 97.273, kg, PRN [...] ia 08-29 Route: l 14:01: IVP, ONCE, [place] 00 Dosing Weight 97.273, kg, PRN Nausea [...] oria ne 08-29 Route: l 14:01: IVP, [place] 00 Q5Min, Dosing Weight 97.273, kg, PRN [...] 08-29 Drug form: l 13:42: INJ, ONCE, [place] Stop date: 08/29/20 8:42:00 CDT fentaNYL 2020-0 No Route: IV, Mem oria (ANES) 08-29 Drug form: l 13:42: INJ, ONCE, [place] Stop date: 08/29/20 8:42:00 CDT fentaNYL 2020-0 No Route: IV, Mem oria (ANES) 08-29 Drug form: l 13:42: INJ, ONCE, Marty Stop date: 08/29/20 8:42:00 CDT fentaNYL 2020-0 No Route: IV, Mem oria (ANES) 08-29 Drug form: l 13:42: INJ, ONCE, Marty Stop date: 08/29/20 8:42:00 CDT norepinephr 2020-0 No Route: IV, Memoria ine (ANES) 08-29 Drug form: l 10 13:15: INJ, Start [place] microgram date: 08/29/20 8:15:00 CDT, Stop date: 08/29/20 9:15:00 CDT norepinephr 2020-0 No Route: IV, Memoria ine (ANES) 08-29 Drug form: l 10 13:15: INJ, Start [place] microgram date: 08/29/20 8:15:00 CDT, Stop date: 08/29/20 9:15:00 CDT norepinephr 2020-0 No Route: IV, Memoria ine (ANES) 08-29 Drug form: l 10 13:15: INJ, Start [place] microgram date: 08/29/20 8:15:00 CDT, Stop date: 08/29/20 9:15:00 CDT norepinephr 2020-0 No Route: IV, Memoria ine (ANES) 08-29 Drug form: l 10 13:15: INJ, Start Marty microgram 00 date: 08/29/20 8:15:00 CDT, Stop date: 08/29/20 9:15:00 CDT norepinephr 2020-0 No Route: IV, Memoria ine (ANES) 08-29 Drug form: l 10 13:15: INJ, Start [place] microgram date: 08/29/20 8:15:00 CDT, Stop date: 08/29/20 9:15:00 CDT norepinephr 2020-0 No Route: IV, Memoria ine (ANES) 4-09 Drug form: l 10 13:15: INJ, Start [place] microgram 00 date: 08/29/20 8:15:00 CDT, Stop [...] 4-09 Total l 0.9% IV 12:30: Volume: [place] (ANES) 1000 00 1,000, mL Start date: 08/29/20 7:30:00 CDT, Stop date: 08/29/20 8:30:00 CDT Sodium 2021-0 No Route: IV, Memor ia Chloride 4-09 Total l 0.9% IV 12:30: Volume: [place] (ANES) 1000 00 1,000, mL Start date: 08/29/20 7:30:00 CDT, Stop date: 08/29/20 8:30:00 CDT Sodium 2021-0 No Route: IV, Memor ia Chloride 4-09 Total l 0.9% IV 12:30: Volume: [place] (ANES) 1000 00 1,000, mL Start date: 08/29/20 7:30:00 CDT, Stop date: 08/29/20 8:30:00 CDT Sodium 2021-0 No Route: IV, Memor ia Chloride 4-09 Total l 0.9% IV 12:30: Volume: [place] (ANES) 1000 00 1,000, mL Start date: 08/29/20 7:30:00 CDT, Stop date: 08/29/20 8:30:00 CDT Sodium 1-0 No Route: IV, Memor ia Chloride 4-09 Total l 0.9% IV 12:30: Volume: [place] (ANES) 1000 00 1,000, mL Start date: [...] PO, l Hydrochlori 11:42: Q24H, # 30 [place] de 150 MG 00 tab, 0 Extended Refill(s) Release Tablet 24 HR Yes 150 mg = 1 Memori a Bupropion 4-09 tab, PO, l Hydrochlori 11:42: Q24H, # 30 Marty de 150 MG 00 tab, 0 Extended Refill(s) Release Tablet 24 HR Yes 150 mg = 1 Memori a Bupropion 4-09 tab, PO, l Hydrochlori 11:42: Q24H, # 30 [place] de 150 MG 00 tab, 0 Extended Refill(s) Release Tablet 24 HR Yes 150 mg = 1 Memori a Bupropion 4-09 tab, PO, l Hydrochlori 11:42: Q24H, # 30 [place] de 150 MG 00 tab, 0 Extended Refill(s) Release Tablet 24 HR Yes 150 mg = 1 Memori a Bupropion 4-09 tab, PO, l Hydrochlori 11:42: Q24H, # 30 [place] de 150 MG 00 tab, 0 Extended Refill(s) Release Tablet 24 HR Yes 150 mg = 1 Memori a Bupropion 4-09 tab, PO, l Hydrochlori 11:42: Q24H, # 30 Marty de 150 MG 00 tab, 0 Extended Refill(s) Release Tablet 24 HR Yes 150 mg = 1 Memori a Bupropion -09 tab, PO, l Hydrochlori 11:42: Q24H, # 30 [place] de 150 MG 00 tab, 0 Extended Refill(s) Release Tablet apixaban 2020-0 Yes 5 mg, PO, Me moria MG Oral 4-09 Q12H, tab, l Tablet 11:41: 0 Marty [Eliquis] 00 Refill(s), For Atrial Fibrilatio n apixaban 5 2020-0 Yes 5 mg, PO, Me moria MG Oral 4-09 Q12H, tab, l Tablet 11:41: 0 [place] [Eliquis] 00 Refill(s), For Atrial Fibrilatio n [...] 08-29 Q12H, tab, l Tablet 11:41: 0 [place] [Eliquis] 00 Refill(s), For Atrial Fibrilatio n apixaban 5 2020-0 Yes 5 mg, PO, Me moria MG Oral 08-29 Q12H, tab, l Tablet 11:41: 0 [place] [Eliquis] 00 Refill(s), For Atrial Fibrilatio n apixaban 5 2020-0 Yes 5 mg, PO, Me moria MG Oral 08-29 Q12H, tab, l Tablet 11:41: 0 [place] [Eliquis] 00 Refill(s), For Atrial Fibrilatio n AMIODarone 2020-0 Yes 200 mg = 1 M emoria 200 mg oral -09 tab, PO, l tablet 11:38: Daily, # [place] 00 90 tab, 3 Refill(s) AMIODarone 2020-0 Yes 200 mg = 1 M emoria 200 mg oral -09 tab, PO, l tablet 11:38: Daily, # Marty 00 90 tab, 3 Refill(s) AMIODarone 2020-0 Yes 200 mg = 1 M emoria 200 mg oral 4-09 tab, PO, l tablet 11:38: Daily, # [place] 00 90 tab, 3 Refill(s) AMIODarone 2020-0 Yes 200 mg = 1 M emoria 200 mg oral 4-09 tab, PO, l tablet 11:38: Daily, # [place] 00 90 tab, 3 Refill(s) AMIODarone 2020-0 [...] tablet 3-27 [facility]: [facility] 00 l Eliquis 5 2020-0 Yes [facility] mg tablet 08-16 00:00: Hospita 00 l Eliquis 5 2020-0 Yes [facility] mg tablet 08-16 00:00: Hospita 00 l Eliquis 5 2020-0 Yes [facility] mg tablet 08-16 00:00: Hospita 00 l Eliquis 5 2020- Yes [facility] mg tablet 08-16 00:00: Hospita [...] daily. [place] tablet 41 [facility] esomeprazol 2020- Yes 40mg Take 40 mg Univers e [...] 00:00: mouth Hospita 00 daily. l DESCOVY 20170 Yes 1{tbl} QD Take 1 Method i 200-25 mg 3-[address] tablet 00:00: mouth [facility]ospita 00 daily. l DESCOVY 20170 Yes 1{tbl} QD Take 1 Method i 200-25 mg 3-[address] tablet 00:00: mouth [facility]ospita 00 daily. l DESCOVY 2017-0 Yes 1{tbl} QD Take 1 Method i 200-25 mg 3-[address] tablet 00:00: mouth [facility]osp[facility] 00 daily. l DESCOVY 20170 Yes 1{tbl} QD Take 1 Method i [...] Hospita 00 (two) l times a day. ISENTRE 2017 Yes 400mg Q.5D Take 400 Met hodi 400 mg 3-[address] tablet 00:00: mouth 2 Hospita 00 (two) l times a day. ISENTRESS 2017 Yes 400mg Q.5D Take 400 Met hodi 400 mg 3-[address] tablet 00:00: mouth 2 [facility]ospita 00 (two) l times a day. Immunizations Ordered Filled Immunization Date Status Comments [facility] e Immunization Name Name PEG COVID-19 2020-07-23 Completed [facility] VACC[facility] 00:00:00 [facility] PFIZER COVID-19 2020-07-23 Completed [facility] VACC[facility] 00:00:00 [facility] PFIZER COVID-19 2020-07-23 Completed [facility] VACC[facility]ATION 00:00:00 [facility] PEG COVID-19 2020-07-23 Completed [facility] VACCINATION 00:00:00 [facility] PFIZER COVID-19 2020-07-23 Completed [facility] VACCINATION 00:00:00 [facility] PFIZER COVID-19 2020-07-02 Completed [facility] VACCINATION 00:00:00 [facility] PFIZER COVID-19 2020-07-02 Completed [facility] VACCINATION 00:00:00 [facility] PFIZER COVID-19 2020-07-02 Completed [facility] VACCINATION 00:00:00 [facility] PFIZER COVID-19 2020-07-02 Completed [facility] VACCINATION 00:00:00 [facility] PFIZER COVID-19 2020-07-02 Completed [facility] VACCINATION 00:00:00 [facility] Influenza Virus 2017-03-08 Completed Universit y of Vaccine 00:00:00 [facility] Influenza Virus 2017-03-08 Completed Universit y of Vaccine 00:00:00 [facility] Influenza Virus 2017-03-08 Completed Universit y of Vaccine 00:00:00 [facility] Influenza Virus 2017-03-08 Completed Universit y of Vaccine 00:00:00 [facility] Influenza Virus 2017-03-08 Completed Universit y of Vaccine 00:00:00 [facility] Influenza Virus 2014-01-30 Completed Universit y of Vaccine (3+ yrs) 00:00:00 [facility] dical Branch Pneumococcal 13 2014-01-30 Completed Universit y of Conjugate, PCV13 00:00:00 [place] [facility] (Prevnar 13) Branch Influenza Virus 2014-01-30 Completed Universit y of Vaccine (3+ yrs) 00:00:00 [facility] Pneumococcal 13 2014-01-30 Completed Universit y of Conjugate, PCV13 00:00:00 [facility] dical (Prevnar 13) Branch Influenza Virus 2014-01-30 Completed Universit y of Vaccine (3+ yrs) 00:00:00 [facility] Branch Pneumococcal 13 2014-01-30 Completed Universit y of Conjugate, PCV13 00:00:00 [facility] dical (Prevnar 13) Branch Influenza Virus 2014-01-30 Completed Universit y of Vaccine (3+ yrs) 00:00:00 [facility] Pneumococcal 13 2014-01-30 Completed Universit y of Conjugate, PCV13 00:00:00 [facility] dical (Prevnar 13) Branch Influenza Virus 2014-01-30 Completed Universit y of Vaccine (3+ yrs) 00:00:00 [facility] Pneumococcal 13 2014-01-30 Completed Universit y of Conjugate, PCV13 00:00:00 [facility] dical (Prevnar 13) Branch Pneumococcal 2012-02-16 Completed University o f Polysaccharide, 00:00:[address] [facility] ical PPSV23 (PNEUMOVAX) Branch Influenza Virus 2012-02-16 Completed Universit y of Vaccine 00:00:00 [facility] PPD (TB) 2012-02-16 Completed University of 00:00:00 [facility] Pneumococcal 2012-02-16 Completed University o f Polysaccharide, 00:00:00 [place] [facility] PPSV23 (PNEUMOVAX) Branch Influenza Virus 2012-02-16 Completed Universit y of Vaccine 00:00:00 [facility] PPD (TB) 2012-02-16 Completed University of 00:00:00 [facility] Pneumococcal 2012-02-16 Completed University o f Polysaccharide, 00:00:00 [place] [facility] PPSV23 (PNEUMOVAX) Branch Influenza Virus 2012-02-16 Completed Universit y of Vaccine 00:00:00 [facility] PPD (TB) 2012-02-16 Completed University of 00:00:00 [facility] Pneumococcal 2012-02-16 Completed University o f Polysaccharide, 00:00:00 [place] [facility] PPSV23 (PNEUMOVAX) Branch Influenza Virus 2012-02-16 Completed Universit y of Vaccine 00:00:00 [facility] PPD (TB) 2012-02-16 Completed University of 00:00:00 [facility] Pneumococcal 2012-02-16 Completed University o f [facility], 00:00[facility]00 [facility] [place] Influenza Virus 2012-02-16 Completed Universit y of Vaccine 00:00:00 [facility] PPD (TB) 2012-02-16 Completed University of 00:00:00 [facility] Hep B, Adol or Pedi 2011-09-01 Completed Unive rsity of Dosage 00:00:00 [facility] Hep B, Adol or Pedi 2011-09-01 Completed Unive rsity of Dosage 00:00:00 [facility] Hep B, Adol or Pedi 2011-09-01 Completed Unive rsity of Dosage 00:00:00 [facility] Hep B, Adol or Pedi 2011-09-01 Completed Unive rsity of Dosage 00:00:00 [facility] Hep B, Adol or Pedi 2011-09-01 Completed Unive rsity of Dosage 00:00:00 [facility] Hep B, Adol or Pedi 2011-03-17 Completed Unive rsity of Dosage 00:00:00 [facility] Hep B, Adol or Pedi 2011-03-17 Completed Unive rsity of Dosage 00:00:00 [facility] Hep B, Adol or Pedi 2011-03-17 Completed Unive rsity of Dosage 00:00:00 [facility] Hep B, Adol or Pedi 2011-03-17 Completed Unive rsity of Dosage 00:00:00 [facility] Hep B, Adol or Pedi 2011-03-17 Completed Unive rsity of Dosage 00:00:00 [facility] Influenza Virus 2011-02-10 Completed Universit y of Vaccine 00:00:00 [facility] Hep B, Adol or Pedi 2011-02-10 Completed Unive rsity of Dosage 00:00:00 [facility] Influenza Virus 2011-02-10 Completed Universit y of Vaccine 00:00:00 [facility] Hep B, Adol or Pedi 2011-02-10 Completed Unive rsity of Dosage 00:00:00 [facility] Influenza Virus 2011-02-10 Completed Universit y of Vaccine 00:00:00 [place] [facility] Hep B, Adol or Pedi 2011-02-10 Completed Unive rsity of Dosage 00:00:00 [facility] Influenza Virus 2011-02-10 Completed Universit y of Vaccine 00:00:00 [facility] Hep B, Adol or Pedi 2011-02-10 Completed Unive rsity of Dosage 00:00:00 [facility] Influenza Virus 2011-02-10 Completed Universit y of Vaccine 00:00:00 [facility] Hep B, Adol or Pedi 2011-02-10 Completed Unive rsity of Dosage 00:00:00 [facility] PPD (TB) 2010-11-18 Completed University of 00:00:00 [facility] TDAP (ADACEL) 2010-11-18 Completed University of VACCINE 00:00:00 [facility] PPD (TB) 2010-11-18 Completed University of 00:00:00 [facility] TDAP (ADACEL) 2010-11-18 Completed University of VACCINE 00:00:00 [facility] PPD (TB) 2010-11-18 Completed University of 00:00:00 [facility] TDAP (ADACEL) 2010-11-18 Completed University of VACCINE 00:00:00 [facility] PPD (TB) 2010-11-18 Completed University of 00:00:00 [facility] TDAP (ADACEL) 2010-11-18 Completed University of VACCINE 00:00:00 [facility] PPD (TB) 2010-11-18 Completed University of 00:00:00 [facility] TDAP (ADACEL) 2010-11-18 Completed University of VACCINE 00:00:00 [facility] HEPATITIS A 2004-03-02 Completed University of 00:00:00 [facility] HEPATITIS A 2004-03-02 Completed University of 00:00:[address] [facility] HEPATITIS A 2004-03-02 Completed University of 00:00:[address] [facility] HEPATITIS A 2004-03-02 Completed University of 00:00:[address] [facility] HEPATITIS A 2004-03-02 Completed University of 00:00:[address] [facility] HEPATITIS A 2003-08-01 Completed University of 00:00:[address] [facility] HEPATITIS A 2003-08-01 Completed University of 00:00:[address] [facility] HEPATITIS A 2003-08-01 Completed University of 00:00:[address] [facility] HEPATITIS A 2003-08-01 Completed University of 00:00:00 [facility] HEPATITIS A 2003-08-01 Completed University of 00:00:00 [facility] PPD (TB) 2001-10-04 Completed University of 00:00:00 [facility] Pneumococcal 2001-10-04 Completed University o f Polysaccharide, 00:00:00 [place] [facility] PPSV23 (PNEUMOVAX) Branch PPD (TB) 2001-10-04 Completed University of 00:00:00 [facility] Pneumococcal 2001-10-04 Completed University o f Polysaccharide, 00:00:00 [place] [facility] PPSV23 (PNEUMOVAX) Branch PPD (TB) 2001-10-04 Completed University of 00:00:00 [facility] Pneumococcal 2001-10-04 Completed University o f Polysaccharide, 00:00:00 [place] [facility] PPSV23 (PNEUMOVAX) Branch PPD (TB) 2001-10-04 Completed University of 00:00:00 [facility] Pneumococcal 2001-10-04 Completed University o f Polysaccharide, 00:00:00 [place] [facility] PPSV23 (PNEUMOVAX) Branch PPD (TB) 2001-10-04 Completed University of 00:00:00 [facility] Pneumococcal 2001-10-04 Completed University o f Polysaccharide, 00:00:00 [place] [facility] PPSV23 (PNEUMOVAX) Branch Vital Signs Vital Name Observation Time Observation Value Comments Source Systolic blood 2021-12-13 06:39:53 170 mm[Hg] Univer [facility] Diastolic blood 2021-12-13 06:39:53 96 mm[Hg] Unive [facility] Heart rate 2021-12-13 06:39:53 60 /min [facility] Respiratory rate 2021-12-13 06:39:53 18 /min [facility] Oxygen saturation in 2021-12-13 06:39:53 98 /min [facility] Arterial blood by [facility] Pulse oximetry [place] Body temperature 2021-12-13 04:57:00 36.56 Amina [facility] Body height 2021-12-13 04:57:00 162.6 cm [facility] Body weight 2021-12-13 04:57:00 90.719 kg [facility] BMI 2021-12-13 04:57:00 34.33 kg/m2 [facility] Systolic blood 2021-08-21 13:13:00 191 mm[Hg] Univer sity of pressure [facility] Diastolic blood 2021-08-21 13:13:00 99 mm[Hg] Unive rsity of pressure [facility] Heart rate 2021-08-21 13:13:00 52 /min Universi ty [facility] [place] [facility] Body temperature 2021-08-21 13:11:00 36.5 [facility]a [facility] 2021-08-21 13:11:00 16 /[facility] Body height 2021-08-21 13:11:00 162.6 cm Universi ty [facility] [place] [facility] Body weight 2021-08-21 13:11:00 93.759 kg Universi ty [facility] [place] [facility] BMI 2021-08-21 13:11:00 35.48 kg/m2 [facility] Oxygen saturation in 2021-08-21 13:11:00 95 /min [facility] Arterial blood by [facility] Pulse oximetry Branch Systolic blood 2021-07-14 15:18:00 142 mm[facility]Hg[facility] Diastolic blood 2021-07-14 15:18:00 76 mm[Hg] [facility] Heart rate 2021-07-14 15:18:00 61 [facility] 2021-07-14 15:18:00 162[facility]6 [facility] 2021-07-14 15:18:00 94.802 [facility] 2021-07-14 15:18:00 35.87 kg/m2 [facility] Systolic blood 2020-12-08 15:48:00 125 mm[Hg] [facility] Diastolic blood 2020-12-08 15:48:00 76 mm[Hg] [facility] pressure Heart rate 2020-12-08 15:48:00 64 /min [facility] Body temperature 2020-12-08 15:48:[address] [facility] Respiratory rate 2020-12-08 15:48:00 17 /min [facility] Body height 2020-12-08 15:48:00 162.6 cm [facility] Body weight 2020-12-08 15:48:00 98.884 kg [facility] BMI 2020-12-08 15:48:00 37.42 kg/m2 [facility] Oxygen saturation in 2020-12-08 15:48:00 97 /min [facility] Arterial blood by Pulse oximetry Respitory Rate 2020-08-30 13:00:00 Memori al [place] Systolic (mm Hg) 2020-08-30 13:00:00 Caesar rial [place] Diastolic (mm Hg) 2020-08-30 13:00:00 Mem orial [place] Systolic (mm Hg) 2020-08-30 11:00:00 Caesar rial [place] Diastolic (mm Hg) 2020-08-30 11:00:00 Mem orial [place] Temperature Oral (F) 2020-08-30 11:00:00 98.4 F [facility] Respitory Rate 2020-08-30 11:00:00 Memori al [place] Respitory Rate 2020-08-30 10:00:00 Memori al [place] Systolic (mm Hg) 2020-08-30 10:00:00 Caesar rial [place] Diastolic (mm Hg) 2020-08-30 10:00:00 Mem orial [place] Temperature Oral (F) 2020-08-30 00:00:00 96.9 F [facility] Temperature Oral (F) 2020-08-29 11:26:00 97.6 F [facility] Height 2020-08-29 10:30:00 162.56 cm [facility] Weight 2020-08-29 10:30:00 [facility] BMI Calculated 2020-08-29 10:30:00 Darien Fernandezann Procedures Procedure Date / Time Performing Clinician Source Performed MEDICATION CORRESPONDENCE 2022-01-06 05:01:00 Doctor Unassigned, [facility] Name [facility] MEDICATION CORRESPONDENCE 2021-12-25 05:01:00 Doctor Unassigned, [facility] [place] [facility] CT CERVICAL SPINE WO 2021-12-13 05:48:16 Bill Guo [facility] CONTRAST [facility] CT HEAD WO CONTRAST 2021-12-13 05:48:16 Bill Guo [facility] CT LUMBAR SPINE WO 2021-12-13 05:48:16 Bill Guo of [place] CONTRAST Medical Branch CT THORACIC SPINE WO 2021-12-13 05:48:16 [facility] CONTRAST Medical Branch ECG 12-LEAD 2021-07-14 15:14:[address] [facility] [id number] 2021-06-17 00:00:00 RIKY Freedman [facility] GASTROINTESTINAL PANEL 2020-12-08 22:21:00 Eliseo Arce [facility] XR ABDOMEN 1 VW 2020-12-08 18:06:32 Eliseo Arce spital OR [place] < 1 HOUR 2020-09-05 22:39:00 Eliseo Arce Ho spital SURGICAL PATHOLOGY REQUEST 2020-09-05 21:54[facility]00 [facility] CHEST 1 VW PORTABLE 2020-09-05 19:55:00 Jailyn [facility] DISCHARGE PATIENT 2020-09-05 17:27:55 Lucas Harris [facility] [place] AN ELECTIVE 2020-09-05 16:47:23 [facility], INTRAOPERATIVE 2020-09-05 16:27:00 Eliseo Arce [facility] PARTIAL THROMBOPLASTIN 2020-09-05 15:04[facility]00 [facility] TIME (PTT) M. PROTHROMBIN TIME WITH INR 2020-09-05 15:04:00 Mindy Maharaj [facility] M. Plan of Care Planned Activity Planned Date Details Comments Source Future Scheduled 2022-01-29 SHINGLES VACCINES (1 [facility] Test 14:07:20 of 2) [code = SHINGLES VACCINES (1 of 2)] Future Scheduled 2022-01-29 BREAST CANCER [facility] Test 14:07:20 SCREENING [code = BREAST CANCER SCREENING] Future Scheduled 2022-01-29 [facility]ONOSCOPY [facility]CREENING [facility] Test 14:07:20 [code = COLONOSCOPY SCREENING] Future Scheduled 2022-01-29 HEPATITIS B VACCINES [facility] Test 14:07:20 (1 of 3 - Risk 3-dose series) [code = HEPATITIS B VACCINES (1 of 3 - Risk 3-dose series)] Future Scheduled 2022-01-29 COVID-19 VACCINE (3 - Me [facility] Test 14:07:20 Booster for Pfizer series) [code = COVID-19 VACCINE (3 - Booster for Pfizer series)] Future Scheduled 2022-01-29 65+ PNEUMOCOCCAL [facility] Test 14:07:20 VACCINE (4 - PPSV23 or PCV20) [code = 65+ PNEUMOCOCCAL VACCINE (4 - PPSV23 or PCV20)] Future Scheduled 2022-01-29 INFLUENZA VACCINE Method [facility] Test 14:07:20 [code = INFLUENZA VACCINE] Future Scheduled 2022-01-20 SHINGLES VACCINES (1 [facility] Test 06:12:34 of 2) [code = SHINGLES VACCINES (1 of 2)] Future Scheduled 2022-01-20 Screening for [facility] Test 06:12:34 malignant neoplasm of cervix (procedure) [code = 858121177] Future Scheduled 2022-01-20 BREAST CANCER [facility] Test 06:12:34 SCREENING [code = BREAST CANCER SCREENING] Future Scheduled 2022-01-20 COLONOSCOPY [facility]CREENING [facility] Test 06:12:34 [code = COLONOSCOPY SCREENING] Future Scheduled 2022-01-20 HEPATITIS B VACCINES [facility] Test 06:12:34 (1 of 3 - Risk 3-dose series) [code = HEPATITIS B VACCINES (1 of 3 - Risk 3-dose series)] Future Scheduled 2022-01-20 COVID-19 VACCINE (3 - [facility] Test 06:12:34 Booster for Pfizer series) [code = COVID-19 VACCINE (3 - Booster for Pfizer series)] Future Scheduled 2022-01-20 65+ PNEUMOCOCCAL [facility] Test 06:12:34 VACCINE (4 - PPSV23 or PCV20) [code = 65+ PNEUMOCOCCAL VACCINE (4 - PPSV23 or PCV20)] Future Scheduled 2022-01-20 INFLUENZA VACCINE Method [facility] Test 06:12:34 [code = INFLUENZA VACCINE] Future Scheduled 2022-01-16 SHINGLES VACCINES (1 [facility] Test 12:09:25 of 2) [code = SHINGLES VACCINES (1 of 2)] Future Scheduled 2022-01-16 Screening for [facility] Test 12:09:25 malignant neoplasm of cervix (procedure) [code = 064166604] Future Scheduled 2022-01-16 BREAST CANCER [facility] Test 12:09:25 SCREENING [code = BREAST CANCER SCREENING] Future Scheduled 2022-01-16 COLONOSCOPY [facility]CREENING [facility] Test 12:09:25 [code = COLONOSCOPY SCREENING] Future Scheduled 2022-01-16 HEPATITIS B VACCINES [facility] Test 12:09:25 (1 of 3 - Risk 3-dose series) [code = HEPATITIS B VACCINES (1 of 3 - Risk 3-dose series)] Future Scheduled 2022-01-16 COVID-19 VACCINE (3 - [facility] Test 12:09:25 Booster for Pfizer series) [code = COVID-19 VACCINE (3 - Booster for Pfizer series)] Future Scheduled 2022-01-16 65+ PNEUMOCOCCAL [facility] Test 12:09:25 VACCINE (4 - PPSV23 or PCV20) [code = 65+ PNEUMOCOCCAL VACCINE (4 - PPSV23 or PCV20)] Future Scheduled 2022-01-16 INFLUENZA VACCINE Method [facility] Test 12:09:25 [code = INFLUENZA VACCINE] Future Scheduled 2022-01-14 SHINGLES VACCINES (1 [facility] Test 04:11:46 of 2) [code = SHINGLES VACCINES (1 of 2)] Future Scheduled 2022-01-14 Screening for [facility] Test 04:11:46 malignant neoplasm of cervix (procedure) [code = 517518676] Future Scheduled 2022-01-14 BREAST CANCER [facility] Test 04:11:46 SCREENING [code = BREAST CANCER SCREENING] Future Scheduled 2022-01-14 [facility] Test 04:11:46 [code = COLONOSCOPY SCREENING] Future Scheduled 2022-01-14 HEPATITIS B VACCINES [facility] Test 04:11:46 (1 of 3 - Risk 3-dose series) [code = HEPATITIS B VACCINES (1 of 3 - Risk 3-dose series)] Future Scheduled 2022-01-14 COVID-19 VACCINE (3 - [facility] Test 04:11:46 Booster for Pfizer series) [code = COVID-19 VACCINE (3 - Booster for Pfizer series)] Future Scheduled 2022-01-14 65+ PNEUMOCOCCAL [facility] Test 04:11:46 VACCINE (4 - PPSV23 or PCV20) [code = 65+ PNEUMOCOCCAL VACCINE (4 - PPSV23 or PCV20)] Future Scheduled 2022-01-14 INFLUENZA VACCINE Method [facility] Test 04:11:46 [code = INFLUENZA VACCINE] Future Scheduled 2021-08-26 Screening for [facility] Test 13:02:23 malignant neoplasm of cervix (procedure) [code = 510049030] Future Scheduled 2021-08-26 BREAST CANCER [facility] Test 13:02:23 SCREENING [code = BREAST CANCER SCREENING] Future Scheduled 2021-08-26 [facility]OSCOPY [facility]CRE[facility]ING [facility] Test 13:02:23 [code = COLONOSCOPY SCREENING] Future Scheduled 2021-08-26 Screening for [facility] Test 13:02:23 malignant neoplasm of lung (procedure) [code = 913691157] Future Scheduled 2021-08-26 SHINGLES VACCINES (#1) [facility] Test 13:02:23 [code = SHINGLES VACCINES (#1)] Future Scheduled 2021-08-26 COVID-19 VACCINE (3 - [facility] Test 13:02:23 Pfizer risk 4-dose series) [code = COVID-19 VACCINE (3 - Pfizer risk 4-dose series)] Future Scheduled 2021-08-26 65+ PNEUMOCOCCAL [facility] Test 13:02:23 VACCINE (4 of 4 - PPSV23) [code = 65+ PNEUMOCOCCAL VACCINE (4 of 4 - PPSV23)] Future Scheduled 2021-08-26 INFLUENZA VACCINE Method [facility] Test 13:02:23 [code = INFLUENZA VACCINE] Encounters Start End Encounter Admission Attending Care Care Encounter Source Date/Time Date/Time Type Type Clinicians Facility Department ID 2021-11-[address] [facility] [id number] [place] 10:32:47 [id number] [facility] 2021-07-[address] [id number] [place] 09:33:51 [facility] 2022-02-26 2022-02-26 Outpatient Marika [facility] [id number] Univers 08:30:00 08:30:00 SANTIAGO [id number] [facility] 2022-02-26 2022-02-26 Outpatient Marika [facility] [id number] Univers 08:30:00 08:30:00 SANTIAGO [facility] 2022-01-06 2022-01-06 Orders Doctor FERMIN 1.2.840.114 [id number] Univers 00:00:00 00:00:00 Only Unassigned, JACKELINE 350.1.13.10 [place] [facility] 4.2.7.2.686 Yomi as [id number] [facility] 009 Branch 2021-12-25 2021-12-25 Orders Doctor FERMIN 1.2.840.114 [id number] Univers 00:00:00 00:00:00 Only Unassigned, JACKELINE 350.1.13.10 [place] H[facility]PITAL 4.2.7.2.686 Yomi as [id number] [facility] 009 Branch 2021-12-12 2021-12-13 Emergency X Bill GUO [facility] ERT [id number] Univers 23:53:00 01:52:00 ity [facility] 2021-12-12 2021-12-13 Emergency Bill Guo [facility] 1.2.840.114 [id number] Univers 23:53:00 01:52:00 Kiersten BULLOCK 350.1.13.10 i [place] [id number] [facility] 084 Branch 2021-11-20 2021-11-20 Child Life Assistant [facility] UNIVERSIT 1.2.840.114 [id number] Univers 09:45:00 10:00:00 Visit Ronald [facility] 350.1.13.10 it[place] [id number] [facility] 316 Branch 2021-11-20 2021-11-20 Outpatient R [facility] [id number] Univers 09:45:00 09:45:00 [facility] 2021-11-20 2021-11-20 Outpatient [facility] [id number] Univers 09:45:00 09:45:00 [id number] 2021-08-21 2021-08-21 Office [facility], UNIVERS 1.2.807.019 [id number] Univers 08:30:00 09:00:00 Visit [facility] 350.1.13.10 i ty of [facility] 4.[place] [id number] [facility] 089 Branch 2021-08-05 2021-08-05 Inpatient EDUARDO LealCL OUTD [id number] [facility] 05:24:00 05:24:00 Mike 31 [facility] 2021-07-14 2021-07-14 Office Pankaj, UTP 6400 1.2.840.114 13 [id number] [place] 08:45:00 09:34:[address] 350.1.13.58 Health 9.2.7.2.686 [id number] 1 2021-07-09 2021-07-09 Telephone Maryjanejuniray, UTP 6400 1.2.840.114 [id number] [place] 00:00:00 00:00:[address] 350.1.13.58 Health 9.2.7.2.686 [id number] 1 2021-06-17 2021-06-17 Inpatient EDUARDO LealCL INTE.02 [id number] [facility] 10:56:00 14:36:00 Mike 47 [facility] 2021-04-28 2021-04-28 Telephone Jailyn, 1.2.840.6 [id number] 21 [id number] Methodi 00:00:00 00:00:[address] 3.430.2.7 Hospit a .3.394543 l .8 2021-04-28 2021-04-28 Telephone Jailyn, 1.2.840.1 [id number] Methodi 00:00:00 00:00:[address] 3.430.2.7 Hospit a .3.054867 l .8 2021-03-31 2021-03-31 Orders Carol Ann, 1.2.840.1 [id number] 21 [id number] Methodi 00:00:00 00:00:00 Only Sarai Luisana 42052.1.1 979 s t 3.430.2.7 Hospit a .3.242494 l .8 2021-03-31 2021-03-31 Orders [facility], 1.2.840.1 [id number] 21 [id number] Methodi 00:00:00 00:00:00 Only Sarai Lieberman 85778.1.1 979 s t 3.430.2.7 Hospit a .3.222684 l .8 2021-03-24 2021-03-24 Telephone [facility], 1.2.840.7 [id number] Methodi 00:00:00 00:00:[address] 3.430.2.7 Hospit a .3.893289 l .8 2021-03-24 2021-03-24 Telephone [facility], 1.2.840.0 [id number] Methodi 00:00:00 00:00:[address] 3.430.2.7 Hospit a .3.900676 l .8 2021-01-19 2021-01-19 Telephone [place], 1.2.840.1 [id number] 2099 [id number] Methodi 00:00:00 00:00:[address] 3.430.2.7 Hospit a .3.763314 l .8 2020-12-12 2020-12-12 Office [place], [facility] 6400 1.2.840.114 12 [id number] 07:42:02 08:18:[address] 350.1.13.58 9.2.7.2.686 [id number] 1 2020-12-09 2020-12-09 Telephone [facility], 1.2.840.1 [id number] Methodi 00:00:00 00:00:00 Sarai Lieberman 25458.1.1 316 s t 3.430.2.7 Hospit a .3.555780 l .8 2020-12-08 2020-12-08 Hospital [facility], 1.2.840.1 [id number] 2100 [id number] Methodi 12:35:54 23:59:00 Encounter Ray [address]308.1.[address] 3.430.2.7 Hospit a .3.466789 l .8 2020-12-08 2020-12-08 Lab Jailyn, 1.2.840.1 [id number] 50726 Methodi 17:25:00 17:30:[address] 3.430.2.7 Hospit a .3.703363 l .8 2020-12-08 2020-12-08 Office Jailyn, 1.2.840.1 [id number] 80098 32853 Methodi 10:30:00 11:39:56 Visit Ray 77908.1.[address] 3.430.2.7 Hospit a .3.447902 l .8 2020-12-08 2020-12-08 Travel 1.2.840.1 1.2.855.573 9525 360964 Methodi 00:00:00 00:00:[address] 3.430.2.7 0.2.7.3.698 Ho spita .3.225682 084.8 l .8 2020-12-02 2020-12-02 Child Life Assistant [facility] 1.2.840.114 8 [id number] 10:20:06 10:36:19 Visit HEALTH 350.1.13.10 [facility] 4.2.7.2.686 [id number] 316 2020-11-25 2020-11-25 Office MEGHA Beltran 1.2.840.114 [id number] 11:06:30 11:58:14 Visit Robbi Hairston [employer]PERVIS[employer] 350.1.13.10 [facility] 4.2.7.2.686 MATERNAL [id number] & CHILD [address] [place] [address] 2020-11-25 2020-11-25 [facility] 1.2.923.061 4751 4592 00:00:00 00:00:00 [facility] 350.1.13.10 CLINICS 4.2.7.2.686 [id number] 089 2020-11-25 2020-11-25 Telephone MEGHA Beltran 1.2.625.886 8510 0821 00:00:00 00:00:00 Robbi [employer] SERV[employer] SUPERVISOR 350.1.13.10 [facility] 4.2.7.2.686 MATERNAL [id number] & CHILD [address] [place] [address] 2020-11-14 2020-11-14 Abstract Rodas, 1.2.840.1 [id number] 03274 14178 Methodi 00:00:00 00:00:[address] 3.430.2.7 Hospit a .3.080272 l .8 2020-11-14 2020-11-14 Telephone Clark, 1.2.840.1 [id number] 2099 [id number] Methodi 00:00:00 00:00:[address] 3.430.2.7 Hospit a .3.024057 l .8 2020-11-07 2020-11-07 Telephone KIMBERLEY Ortiz 6400 1.2.840.114 124 [id number] 00:00:00 00:00:[address] 350.1.13.58 9.2.7.2.686 [id number] 1 2020-10-27 2020-10-27 Telephone Jailyn, 1.2.840.2 [id number] Methodi 00:00:00 00:00:[address] 3.430.2.7 Hospit a .3.987619 l .8 2020-10-24 2020-10-24 Telephone Clark, 1.2.840.1 [id number] 2099 [id number] Methodi 00:00:00 00:00:[address] 3.430.2.7 Hospit a .3.220186 l .8 2020-10-06 2020-10-12 Telemedici Jailyn, 1.2.840.1 [id number] Methodi 15:30:00 00:08:46 ne Ray [address]18.1.[address] 3.430.2.7 Hospit a .3.598172 l .8 2020-09-30 2020-09-30 [facility], 1.2.840.9 [id number] 21 [id number] Methodi 00:00:00 00:00:[address] 3.430.2.7 Hospit a .3.772144 l .8 2020-09-21 2020-09-21 [facility] 1.2.840.1 1.2.405.807 6676 [id number] Methodi 00:00:00 00:00:[address] 3.430.2.7 0.2.7.3.698 Ho spita .3.846313 084.8 l .8 2020-09-06 2020-09-06 [facility] 1.2.840.1 [id number] 53823 95517 Methodi 17:42:30 23:59:[address] 3.430.2.7 Hospit a .3.481200 l .8 2020-09-06 2020-09-06 [facility], 1.2.840.1 [id number] 2099 [id number] Methodi 16:50:00 17:41:00 Encounter Ray [address]60.1.[address] 3.430.2.7 Hospit a .3.829290 l .8 2020-09-05 2020-09-05 [facility], 1.2.840.1 [id number] 2099 [id number] Methodi 09:17:00 19:45:00 Encounter Ray [address]33.1.[address] 3.430.2.7 Hospit a .3.656925 l .8 2020-09-05 2020-09-05 [facility], 1.2.840.1 [id number] 74052 14184 Methodi 11:30:00 13:15:[address] 3.430.2.7 Hospit a .3.987840 l .8 2020-09-05 2020-09-05 Anesthesia [facility], 1.2.840.1 [id number] 224 [id number] Methodi 11:27:00 12:20:00 Event Kirit 96980.1.1 243 s t V. 3.430.2.7 Hospit a .3.965990 l .8 2020-09-05 2020-09-05 Travel 1.2.840.1 1.2.727.090 4997 482474 Methodi 00:00:00 00:00:[address] 3.430.2.7 0.2.7.3.698 Ho spita .3.192947 084.8 l .8 2020-09-04 2020-09-04 Telephone [place], 1.2.840.1 [id number] Methodi 00:00:00 00:00:00 Sarai Lieberman 00854.1.1 762 s t 3.430.2.7 Hospit a .3.829478 l .8 2020-09-02 2020-09-02 Telephone [place], 1.2.840.6 [id number] Methodi 00:00:00 00:00:00 Sarai Lieberman 66769.1.1 344 s t 3.430.2.7 Hospit a .3.876659 l .8 2020-08-29 2020-08-30 [facility] [id number] [facility] 10:20:00 14:10:00 Outpatient [facility] 00 l [facility] 2020-08-29 2020-08-30 Outpatient [facility], [facility] CAR 7500 [facility] 05:20:00 09:10:00 [facility] Results Test Description Test Time Test Comments Results Result Comments Source Novel Coronavirus 2019 Inhouse 2021-08-03 18:08:00 Test Item Value Reference Range Interpretation Comme nts Novel Coronavirus 2019 Negative Negative Posit bruno results are indicative of the Inhouse (test code = presenc e fnIEYD-FcZ-7 RNA, clinical COVNONPUI) correlation wit h patient [...] qualitative detection of nucleic acid s from iyrZUJG-LkX-6 virus and diagn osis of SARS-CoV-2 virusinfection. It is an Emergency Use Authorization ( EUA) testauthorized by the U.S. FDA. BASIC METABOLIC [id number] 09:37:00 Test Item Value Reference Range Interpretation [...] = 9.0 mg/dL 8.0-10.5 N CA) PROTHROMBIN [id number] 09:32:00 Test Item Value Reference Range Interpretation [...] (to prevent recurrent infar ct). 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 [place] : 1955 Age/S: 66/F [address] [place] [address] Unit #: [id number] Loc: [place] [address] Phys: Bahman Chopra [facility] Acct: [id number] Dis Date: Status: ADM IN PHONE #: [phone] Exam Date: 06/17/2021 1320 FAX #: [phone] Reason: WATCHMAN EXA MS: CPT CODE: [id number] XR CHEST 1 V 00875 PROCEDURE INFORMATION: Exam: XR Chest Exam date [...] Chopra Technologist: RT Taylor(R) Trnscrd Date/Time/By: 06/17/2021 (905) : By: Susanna Orig Print D/T: S: 06/17/2021 (9514) PAGE 1 Signed ReportCOVID 19 Asymptomatic IH [id number] 12:29:00 Test Item Value Reference Range Interpretation [...] perform moderate, high or waivedcomplexit y tests. PJWHQUKNKY2000-16-80 11:37:00 Test Item Value Reference Range Interpretation Comments PREALBUMIN (test code = PREALB) 24.3 mg/dL 16.0-40.0 N BASIC METABOLIC [id number] 11:37:00 Test Item Value Reference Range Interpretation [...] = 9.0 mg/dL 8.0-10.5 N CA) PROTHROMBIN [id number] 11:03:00 Test Item Value Reference Range Interpretation [...] (to prevent recurrent infar ct). CBC W/AUTO [id number] 10:59:00 Test Item Value Reference Range Interpretation [...] 0.0-0.1 N NRBC#) - XR CHEST 2 [id number] 00:00:00 [facility] : 1955 Sex: F FAX: Carmenza Kelly [phone] [place]: St: PRE FAX: Mike Scales MD [phone] Name: LIO WATTS [facility] [place] : 1955 Age/S: 66/F [address] [place] [address] Unit #: [id number] Loc: [place], [place] [address]Gzxr: Mike Lund MD Acct: [id number] Dis Date: Status: PRE [facility] PHONE #: [phone] Exam Date: 06/16/2021 1120 FAX #: [phone] Reason: PREOP EXAMS: CPT CODE: [id number] XR CHEST 2 V 63704 PROCEDURE INFORMATION: Exam: XR Chest Exam date [...] MD Technologist: RT Andree(R) Trnscrd Date/Time/By: 06/16/2021 (8269) : By: [email or web address] Orig Print D/T: S: 06/16/2021 (2700) PAGE 1 Signed ReportGastrointestinal aimyp8021-21-52 04:35:05 Test Item Value Reference Interpretation Comments [...] Rotavirus PCR (test Not Detected code = 3716717) Salmonella PCR (test Not Detected code = [...] PCR Not Detected (test code = 7124) [facility] [id number] 19:30:47 Test Item Value Reference Range Interpretation Comments Case number (test [id number] code = 4670576) Surgical pathology See link below for PDF report (test code = Lab Report 2255) Result status (test This is Supplemental code = 5730518) Report for [id number] [facility]2021-04-09 16:31:00 Test Item Value Reference Range Interpretation Comments POC Activated Clotting Time (test code 153 s = POC Activated Clotting Time) [facility]XymiqomLNTDGDCRKA0988-81-29 16:31:00 Test Item Value Reference Range Interpretation Comments POC Activated Clotting Time (test code 153 s = POC Activated Clotting Time) [facility] HospitalAshpllvUHQRBYCRFB4027-02-20 16:31:00 Test Item Value Reference Range Interpretation Comments POC Activated Clotting Time (test code 153 s = POC Activated Clotting Time) [facility] HospitalUmajkbwKBSGVEOCSC5599-52-20 16:31:00 Test Item Value Reference Range Interpretation Comments POC Activated Clotting Time (test code 153 s = POC Activated Clotting Time) [facility] HospitalLcjrulkPASOQCIJLI5335-92-65 16:31:00 Test Item Value Reference Range Interpretation Comments POC Activated Clotting Time (test code 153 s = POC Activated Clotting Time) [facility] HospitalDplmctxUPDVSQRYPA1948-74-87 16:31:00 Test Item Value Reference Range Interpretation Comments POC Activated Clotting Time (test code 153 s = POC Activated Clotting Time) [facility] HospitalPqsxgvrGGTPGRZWHX2598-21-96 16:31:00 Test Item Value Reference Range Interpretation Comments POC Activated Clotting Time (test code 153 s = POC Activated Clotting Time) [facility] HospitalCbkpkptTQHEUPJXTK9379-62-31 14:37:00 Test Item Value Reference Range Interpretation Comments POC Activated Clotting Time (test code 454 s = POC Activated Clotting Time) [facility] HospitalNooazllBTTXCECJNT9402-14-21 14:37:00 Test Item Value Reference Range Interpretation Comments POC Activated Clotting Time (test code 454 s = POC Activated Clotting Time) [facility] HospitalBhkyxdoEVYFYGGCJT3294-92-55 14:37:00 Test Item Value Reference Range Interpretation Comments POC Activated Clotting Time (test code 454 s = POC Activated Clotting Time) [facility] HospitalMopwhjsWFPGAFLEED7466-30-99 14:37:00 Test Item Value Reference Range Interpretation Comments POC Activated Clotting Time (test code 454 s = POC Activated Clotting Time) [facility] HospitalCrwnqgpKGJFOKXNQS0735-00-07 14:37:00 Test Item Value Reference Range Interpretation Comments POC Activated Clotting Time (test code 454 s = POC Activated Clotting Time) [facility] HospitalZzligrxMBUBXQUNCS6500-32-24 14:37:00 Test Item Value Reference Range Interpretation Comments POC Activated Clotting Time (test code 454 s = POC Activated Clotting Time) [facility] HospitalHjloeudITNJZPDOYH5855-44-79 14:37:00 Test Item Value Reference Range Interpretation Comments POC Activated Clotting Time (test code 454 s = POC Activated Clotting Time) [facility] HospitalRubijnvOZUTOHUAFT8297-14-54 14:13:00 Test Item Value Reference Range Interpretation Comments POC Activated Clotting Time (test code 354 s = POC Activated Clotting Time) [facility] HospitalRrundgkVWAEIKEPPP8499-66-17 14:13:00 Test Item Value Reference Range Interpretation Comments POC Activated Clotting Time (test code 354 s = POC Activated Clotting Time) [facility] HospitalGtvshtrVPFKQZGLVU9624-95-96 14:13:00 Test Item Value Reference Range Interpretation Comments POC Activated Clotting Time (test code 354 s = POC Activated Clotting Time) [facility] HospitalTvnhvojPBWNDZEYDB0445-84-84 14:13:00 Test Item Value Reference Range Interpretation Comments POC Activated Clotting Time (test code 354 s = POC Activated Clotting Time) [facility] HospitalApkgdupNEGYKDVCRX8372-23-47 14:13:00 Test Item Value Reference Range Interpretation Comments POC Activated Clotting Time (test code 354 s = POC Activated Clotting Time) [facility] HospitalOulszraBPHJAOWRLZ6124-29-51 14:13:00 Test Item Value Reference Range Interpretation Comments POC Activated Clotting Time (test code 354 s = POC Activated Clotting Time) [facility] HospitalNpndnuwEFQLDGOWFV6247-92-46 14:13:00 Test Item Value Reference Range Interpretation Comments POC Activated Clotting Time (test code 354 s = POC Activated Clotting Time) [facility] BANK ETSHYTF8634-17-29 10:37:00Negative (08/29/20 5:37 AM) [facility] UNRUT6276-82-07 10:37:92917Jreuuzjy HermannCHEM PANEL 2020-08-29 10:37:0028[facility] HermannCHEM KRWAQ2606-47-75 10:37:001.01[facility] HermannCHEM KNQWE0711-66-57 10:37:62982Kougylsn HermannCHEM HYTXU2421-78-83 10:37:003.8[facility] HermannCHEM BOQIL3880-26-41 10:37:13991Gvcabflk HermannCHEM FGDIQ6412-03-34 10:37:0028[facility] HermannCHEM WHBHB8343-06-92 10:37:009.8 [facility]annCHEM KJHST6074-54-80 10:37:0011.8[facility] HermannCHEM PANEL 2020-08-29 10:37:0059Mem[facility] HermannCHEM ZUWNX1053-83-04 10:37:002.9[facility]orial DfstnrnEKVXJHXPYV2713-45-71 10:37:006.8[facility]orial LirsbkjWKFGYWEPZR7497-63-63 10:37:004.47[facility]orial AokxfrmGCFENSSNLL2648-11-58 10:37:0010.6[facility] XKYRJOMZCO2949-46-09 10:37:0034.0[facility] VmrtaqqHLQZJKANEI8188-81-39 10:37:00 76.1[facility]orial DrykiiuAZRVWZXGIE9244-34-29 10:37:00 Test Item Value Reference Range Interpretation Comments MCH (test code = MCH) 23.8 pg 27.0-31.0 [facility] BicijomZWYTRPRNMJ6313-80-27 10:37:0031.3[facility] HermannHEMATOLOGY 2020-08-29 10:37:0018.2[facility]orial JpzqnfrYIRUMIWUBC8157-75-58 10:37:57591Letptbrg IboevxrCSWPYRPZME8263-54-85 10:37:007.5[facility]orial QkxjjlpRLCSRVAOZA3103-97-31 10:37:00 Test Item Value Reference Range Interpretation Comments PT (test code = PT) 12.8 s 12.0-14.7 Memorial BacybteSGTPLSYYKT8855-49-16 10:37:00 Test Item Value Reference Range Interpretation Comments INR (test code = INR) 0.97 1 0.85-1.17 Memorial PfwvaglMSLWGMQLVT4283-19-89 10:37:00 Test Item Value Reference Range Interpretation Comments PTT (test code = PTT) 25.0 s 22.9-35.8 Memorial QlfapdpEZVIRPBMRZ9310-98-42 10:37:0070.5[facility] HermannHEMATOLOGY 2020-08-29 10:37:0018.8[facility] SkskknaVFUBEWDFVW3899-25-57 10:37:009.5[facility]orial BbvtgkzCHIFQZCFYF1740-31-99 10:37:000.9[facility]orial FpmrhbiYSTLFCJQSA2934-57-98 10:37:000.3[facility] EcrxtnoDWPVNRIYIK3174-15-53 10:37:004.8[facility] [place] UNDNKRUXEF5676-70-39 10:37:001.3[facility] JjrmvveQIDGPIWPIL3568-04-96 10:37:000.6 Memorial MghdzvkGNPBXBNQLN6234-97-15 10:37:000.1[facility] HermannHEMATOLOGY 2020-08-29 10:37:001+ *ABN*(08/29/20 5:37 AM)[facility] VsbrvuxSWYBHQZZHQ2916-11-05 10:37:00Not Detected (08/29/20 5:37 AM)[facility] HermannBLOOD BANK RESULTS 2020-08-29 10:37:00Negative (08/29/20 5:37 AM)[facility] HermannCHEM LMGDJ7209-13-68 10:37:33904Nhqmzjwh HermannCHEM MXAXC4920-13-43 10:37:0028[facility] HermannCHEM TGNHI4360-66-86 10:37:001.01[facility] HermannCHEM GXTYW4312-66-57 10:37:67439 [facility] HermannCHEM UNEDZ7084-74-18 10:37:003.8[facility]annCHEM PANEL 2020-08-29 10:37:44483Seeyenag HermannCHEM EAEKV9446-74-34 10:37:0028[facility]annCHE[facility] ZUASL1344-39-89 10:37:009.8[facility]annCHE[facility] DVXUV1344-80-72 10:37:0011.8[facility]annCHE[facility] DYHVL8304-62-04 10:37:0059[facility]annCHE[facility] ONLQI5907-64-33 10:37:002.9[facility] BvwopsbDAVJNJTEDU4656-68-36 10:37:006.8 [facility] YzljtzwFTSFAOEOTH9025-63-31 10:37:004.47[facility]annHEMATOLOGY 2020-08-29 10:37:0010.6[facility] KzpkrywYJYPDEWWAQ4708-87-40 10:37:0034.0[facility] XcjggbtUFYZDZRZIX3808-21-18 10:37:0076.1[facility] LjfaboxEQSOLZKLJB1640-24-84 10:37:00 Test Item Value Reference Range Interpretation Comments MCH (test code = MCH) 23.8 pg 27.0-31.0 [facility] TpxzcgtRCAXBEQGSH3728-63-15 10:37:0031.3[facility]annHEMATOLOGY 2020-08-29 10:37:0018.2[facility] ArqeezqCYRUTNGEVA1572-60-65 10:37:66924Edtjfduz DljkmtoVPUHHNESCP1087-69-41 10:37:007.5[facility] HgvfvriEMIDXRRMHY9964-99-62 10:37:00 Test Item Value Reference Range Interpretation Comments PT (test code = PT) 12.8 s 12.0-14.7 [facility] TdcetqnWYCOOCDCWU4968-25-25 10:37:00 Test Item Value Reference Range Interpretation Comments INR (test code = INR) 0.97 1 0.85-1.17 [facility] EjwkeiiBHGEWYGIEY3831-20-96 10:37:00 Test Item Value Reference Range Interpretation Comments PTT (test code = PTT) 25.0 s 22.9-35.8 [facility] YnfgyuiLPYAMHWSKY8581-60-06 10:37:0070.5[facility]annHEMATOLOGY 2020-08-29 10:37:0018.8[facility] IxnhvaaYJWPFTOUVT4168-40-89 10:37:009.5[facility] UyakbwuMYVPYFSZSF2361-23-24 10:37:000.9[facility] KhrnqqfXZAINJWOZZ0881-66-88 10:37:000.3[facility] AyxxaugLEYFKEEGWK6680-79-13 10:37:004.8[facility] YGCDQEWORP5175-82-02 10:37:001.3[facility] TncjgalEIYAVKAKXX1636-80-72 10:37:000.6 [facility] OwdgrwyFHUTVJMIQF2090-76-49 10:37:000.1[facility]annHEMATOLOGY 2020-08-29 10:37:001+ *ABN*(08/29/20 5:37 AM)[facility] IgnnxxjOSDLLPHEJY4871-87-85 10:37:00Not Detected (08/29/20 5:37 AM)[facility] 2020-08-29 10:37:00Negative (08/29/20 5:37 AM)[facility]annCHEM TARJQ1647-25-24 10:37:31169Fsbfjlty HermannCHEM EQZLV8292-63-03 10:37:0028[facility]annCHEM WYYBL1679-87-57 10:37:001.01[facility]annCHEM WUBLU2483-13-98 10:37:46188 [facility]CHE[facility] MXFPA8171-96-24 10:37:003.8[facility]annCHEM PANEL 2020-08-29 10:37:13639Duonvufz HermannCHEM AKRGP0408-59-69 10:37:0028[facility]annCHEM EBEOZ1403-82-80 10:37:009.8[facility]annCHEM SKMUN9216-67-32 10:37:0011.8[facility]annCHEM ZMUHQ5322-13-80 10:37:0059[facility]annCHEM NTMMS4913-08-63 10:37:002.9[facility] JvfowjbCNRVSHNKWL5149-38-37 10:37:006.8 [facility] JsunsvvKBWCFURTGH1526-55-51 10:37:004.47[facility]annHEMATOLOGY 2020-08-29 10:37:0010.6[facility] HxmrvtlGNUKYMIMAW8702-87-62 10:37:0034.0[facility] AxiysjkGXCHSXBLRO9637-66-04 10:37:0076.1[facility] MvfkwiaBJAKPZBVRP4277-60-71 10:37:00 Test Item Value Reference Range Interpretation Comments MCH (test code = MCH) 23.8 pg 27.0-31.0 [facility] EikevriAHDBDZVGPO4625-89-61 10:37:0031.3[facility]annHEMATOLOGY 2020-08-29 10:37:0018.2[facility] YblxmvoYRFTBXXOFG7965-72-14 10:37:13161Ngyaeclt LczrdvgLUTAZDDEDV2884-44-16 10:37:007.5[facility] IwpncdzFBLGPAERXR5651-69-42 10:37:00 Test Item Value Reference Range Interpretation Comments PT (test code = PT) 12.8 s 12.0-14.7 [facility] JwjzgmaKKSHNGZLHL2406-20-74 10:37:00 Test Item Value Reference Range Interpretation Comments INR (test code = INR) 0.97 1 0.85-1.17 [facility] RkxrlueYITFOIPOWA6684-85-19 10:37:00 Test Item Value Reference Range Interpretation Comments PTT (test code = PTT) 25.0 s 22.9-35.8 [facility] CmydixtUOOABOJNIB7493-36-45 10:37:0070.5[facility]annHEMATOLOGY 2020-08-29 10:37:0018.8[facility] NbxsxjkKQXNQBGZQZ8818-80-78 10:37:009.5[facility] UwtabwiMBOCIANETA7355-35-68 10:37:000.9[facility] GowdxqfHMTFBDYOGJ5220-64-45 10:37:000.3[facility] KurxdykTFHTTZJEVD4343-04-07 10:37:004.8[facility] MTNGEJRSCY2199-96-25 10:37:001.3[facility] TuadavvKMPJRMXQEY0428-61-98 10:37:000.6 [facility] RqszipwGDZYYHCIBX6872-83-22 10:37:000.1[facility]annHEMATOLOGY 2020-08-29 10:37:001+ *ABN*(08/29/20 5:37 AM)[facility] RbclywxPGDXGJCTSM8666-31-29 10:37:00Not Detected (08/29/20 5:37 AM)[facility] RESULTS 2020-08-29 10:37:00Negative (08/29/20 5:37 AM)[facility]annCHEM ZDDDV2288-46-99 10:37:78477Njjyjhmw HermannCHEM OTXLB5141-61-54 10:37:0028[facility]annCHEM WLMCA3786-15-84 10:37:001.01[facility]annCHEM BMAEL4742-55-09 10:37:06999 [facility]annCHEM DKNEY0935-44-96 10:37:003.8[facility]annCHEM PANEL 2020-08-29 10:37:76716Bqnbhabw HermannCHEM ZPXYP3805-56-02 10:37:0028[facility]annCHEM PVKSY5347-76-61 10:37:009.8[facility]annCHEM KAINX8675-47-61 10:37:0011.8[facility]annCHEM MPVSS6862-05-76 10:37:0059[facility]annCHEM IJENI0585-24-27 10:37:002.9[facility] DpjsnqqERCGGSUTGT2321-88-96 10:37:006.8 [facility] IuwzjuxVCAMLQCCGI8919-75-39 10:37:004.47[facility]annHEMATOLOGY 2020-08-29 10:37:0010.6[facility] UfmgjfsBRGWBIOOBU8655-59-77 10:37:0034.0[facility] ZncvwbjTTTYAEASHC5293-53-92 10:37:0076.1[facility] FxexnszQHSAXQDIVX0159-73-32 10:37:00 Test Item Value Reference Range Interpretation Comments MCH (test code = MCH) 23.8 pg 27.0-31.0 [facility] OdedtgdNVXSKYEUTQ8646-70-51 10:37:0031.3[facility] HermannHEMATOLOGY 2020-08-29 10:37:0018.2[facility] QtomktfQVIQQDVIDY4607-86-07 10:37:56030Sncmjxws GjyohkhWHNFUBVVAS2850-88-55 10:37:007.5[facility] UbznigrWWJLRTOARA5315-20-96 10:37:00 Test Item Value Reference Range Interpretation Comments PT (test code = PT) 12.8 s 12.0-14.7 [facility] QakjcfgAGYNWNTVKM6932-83-76 10:37:00 Test Item Value Reference Range Interpretation Comments INR (test code = INR) 0.97 1 0.85-1.17 [facility] WrvojcvTVFHOHZWBD5228-72-46 10:37:00 Test Item Value Reference Range Interpretation Comments PTT (test code = PTT) 25.0 s 22.9-35.8 [facility] EqqqiruKCEOVVMJWU2954-00-59 10:37:0070.5[facility] HermannHEMATOLOGY 2020-08-29 10:37:0018.8[facility] NqgsflfKGDEIDHXQG9936-98-59 10:37:009.5[facility] YhpwakfLIOFQPNEEF2230-25-99 10:37:000.9[facility] UfbfaiwDQGYMEZBKS9688-18-44 10:37:000.3[facility] PiytxojGCGIVRBEIL5246-28-28 10:37:004.8[facility] MFFGGZWJNY7863-44-15 10:37:001.3[facility] MhdzeptPFTPSJCBXW6458-92-31 10:37:000.6 [facility] OhbijykFEOQSSDXWM2971-51-95 10:37:000.1[facility] HermannHEMATOLOGY 2020-08-29 10:37:001+ *ABN*(08/29/20 5:37 AM)[facility] DeojkskNLOXBLCJHG5484-60-78 10:37:00Not Detected (08/29/20 5:37 AM)[facility]annBLOOD BANK RESULTS 2020-08-29 10:37:00Negative (08/29/20 5:37 AM)[facility]annCHEM EMAPO6826-35-18 10:37:30203Qteltgwz HermannCHEM IQOZX0156-73-96 10:37:0028[facility]annCHEM RXAQW2001-31-24 10:37:001.01[facility]annCHEM FIWAW4436-81-32 10:37:36697 [facility]annCHEM SCFNS5257-98-30 10:37:003.8[facility] HermannCHEM PANEL 2020-08-29 10:37:74821Frzqiifs HermannCHEM GYMHH6072-22-75 10:37:0028[facility] HermannCHEM WINGH2014-85-21 10:37:009.8[facility] HermannCHEM PYGRK2099-82-80 10:37:0011.8[facility] HermannCHEM KBRJQ3186-99-46 10:37:0059[facility]annCHEM PHEHH4419-16-58 10:37:002.9[facility] XktfgtrUEOIUGCRDV2443-29-55 10:37:006.8 [facility] LlfmbugMXLUXDECTB9118-91-67 10:37:004.47[facility] HermannHEMATOLOGY 2020-08-29 10:37:0010.6[facility] HaytdvvLDVZFIVKTB7801-26-51 10:37:0034.0[facility] TgxeyqhRJYMMKARCQ8518-19-82 10:37:0076.1[facility] WiytemiLBYWBUOZUY4441-18-47 10:37:00 Test Item Value Reference Range Interpretation Comments MCH (test code = MCH) 23.8 pg 27.0-31.0 [facility] UqzojpcXKVCJDEPKA6438-64-13 10:37:0031.3[facility] HermannHEMATOLOGY 2020-08-29 10:37:0018.2[facility] NbotnfuYBRNNLWTOI3347-25-50 10:37:15831Xgpieuxy IvlnwsgZIIOSQHEUT3437-54-64 10:37:007.5[facility] HjeqkdhEICOOEYMFQ2045-69-85 10:37:00 Test Item Value Reference Range Interpretation Comments PT (test code = PT) 12.8 s 12.0-14.7 [facility] IrcbijjNHJMCGHUVE7209-07-80 10:37:00 Test Item Value Reference Range Interpretation Comments INR (test code = INR) 0.97 1 0.85-1.17 [facility] PviqkwnFNNFTYUTVJ6585-21-54 10:37:00 Test Item Value Reference Range Interpretation Comments PTT (test code = PTT) 25.0 s 22.9-35.8 [facility] TeigwqgVWFONBXOHB0775-67-35 10:37:0070.5[facility]annHEMATOLOGY 2020-08-29 10:37:0018.8[facility] ZuogzhkFSDTNGLSPI0427-68-69 10:37:009.5[facility] RszinsqAIHDGEMWBX3636-69-95 10:37:000.9[facility] IdsksgaTCJCPYOEJA9734-93-04 10:37:000.3[facility] WmboelzBARSIWNYYL6958-44-40 10:37:004.8[facility] NDUVZJNQDC1221-08-39 10:37:001.3[facility] RpfmgsmSKUTPYIPKM5647-43-17 10:37:000.6 [facility] CatdnqpTDOWKDUFED6349-22-49 10:37:000.1[facility] HermannHEMATOLOGY 2020-08-29 10:37:001+ *ABN*(08/29/20 5:37 AM)[facility] AfmnzzjTWHGFYUYCN9422-97-73 10:37:00Not Detected (08/29/20 5:37 AM)[facility]annBLOOD BANK RESULTS 2020-08-29 10:37:00Negative (08/29/20 5:37 AM)[facility] HermannCHEM ZLKCK1501-35-83 10:37:00136Evfokxpp HermannCHEM YTKAC2684-17-32 10:37:0028[facility]annCHEM HSTXE0695-37-33 10:37:001.01[facility] HermannCHEM WLOVS6875-61-93 10:37:38129 [facility]annCHEM RHHMB3259-94-54 10:37:003.8[facility] HermannCHEM PANEL 2020-08-29 10:37:37708Zfzlinns HermannCHEM FKEKE0190-94-03 10:37:0028[facility] HermannCHEM VRLQV3524-10-05 10:37:009.8[facility] HermannCHEM LZSZN5642-90-91 10:37:0011.8[facility] HermannCHEM XGJCP8290-60-62 10:37:0059[facility]annCHEM WMVGH6834-13-19 10:37:002.9[facility] BcfmineAEWFLIDGOT5209-82-29 10:37:006.8 [facility] CqmdiznZSSGHMXSFW7176-78-65 10:37:004.47[facility] HermannHEMATOLOGY 2020-08-29 10:37:0010.6[facility] CvxfnisFDICPCETUB8819-89-73 10:37:0034.0[facility] PoqxezmVOWEEOVOFL3124-35-58 10:37:0076.1[facility] AulsingTEYLWMSCCE6921-70-77 10:37:00 Test Item Value Reference Range Interpretation Comments MCH (test code = MCH) 23.8 pg 27.0-31.0 [facility] DxllqtpRHPQTEWSUL0230-11-86 10:37:0031.3[facility] HermannHEMATOLOGY 2020-08-29 10:37:0018.2[facility] UgsklmeSMLPIKRNEC9436-36-06 10:37:99453Gnbamoup JhiftxhNTIOQJYFVB8979-20-87 10:37:007.5[facility] BzzhadhLNNKMDCUVY3742-52-79 10:37:00 Test Item Value Reference Range Interpretation Comments PT (test code = PT) 12.8 s 12.0-14.7 [facility] CfncdwnJFILBPKEIY7207-10-30 10:37:00 Test Item Value Reference Range Interpretation Comments INR (test code = INR) 0.97 1 0.85-1.17 [facility] MbpilmyDMDMVNEBJP0070-50-86 10:37:00 Test Item Value Reference Range Interpretation Comments PTT (test code = PTT) 25.0 s 22.9-35.8 [facility] FtorgbqHMPYUXJIBL5658-72-72 10:37:0070.5[facility] HermannHEMATOLOGY 2020-08-29 10:37:0018.8[facility] JycnvajNNUMMLJPUG3985-47-27 10:37:009.5[facility] NjimefgTCGSXRTYVN7430-66-25 10:37:000.9[facility] BxentgwOXEMXNZMAD6866-93-80 10:37:000.3[facility] BomyjjmDMACMQFWLG7726-73-93 10:37:004.8[facility] NDGQVMWVTU0981-56-04 10:37:001.3[facility] VlnpdieBXUNCANQXO0398-26-60 10:37:000.6 [facility] QxhfckhGCSOHSNTYE1721-41-17 10:37:000.1[facility]annHEMATOLOGY 2020-08-29 10:37:001+ *ABN*(08/29/20 5:37 AM)[facility] KwjsaqwLQASPPPJCP0568-60-85 10:37:00Not Detected (08/29/20 5:37 AM)[facility] HermannBLOOD BANK RESULTS 2020-08-29 10:37:00Negative (08/29/20 5:37 AM)[facility] HermannCHEM CJDRJ2518-40-23 10:37:82980Dvxbujzo HermannCHEM TCFLR8541-54-08 10:37:0028[facility] HermannCHEM JDJGI1760-91-26 10:37:001.01[facility] HermannCHEM ZUFYP4393-42-43 10:37:31108 [facility]annCHEM CYZSB6546-14-15 10:37:003.8[facility] HermannCHEM PANEL 2020-08-29 10:37:68825Sumkiojk HermannCHEM OWAZL8828-36-93 10:37:0028[facility] HermannCHEM AHDJF4305-66-05 10:37:009.8[facility] HermannCHEM WAMIG1518-50-42 10:37:0011.8[facility] HermannCHEM PJVDS6413-66-16 10:37:0059[facility] HermannCHEM EIJPN4700-13-35 10:37:002.9[facility] OpeyklxGXALLTZDDA1274-17-48 10:37:006.8 [facility] KuasiixHJZREFKJJQ3576-08-86 10:37:004.47[facility] HermannHEMATOLOGY 2020-08-29 10:37:0010.6[facility] AkpfnfzIEKJTRZWOL7829-57-99 10:37:0034.0[facility] JfwcabdMBYVJQWNEK9242-41-07 10:37:0076.1[facility] ZcaxcskBMECLDRUSL8179-68-76 10:37:00 Test Item Value Reference Range Interpretation Comments MCH (test code = MCH) 23.8 pg 27.0-31.0 [facility] MwuffotCRCRLRFEXI4003-76-66 10:37:0031.3[facility] HermannHEMATOLOGY 2020-08-29 10:37:0018.2[facility] VoiyqyjNFCYVAEARL8941-99-69 10:37:13808Zhpfyvxj NkejbqzQJRMLRYCRF7903-60-95 10:37:007.5[facility] CihxjnvFDIPBIBMGX6414-95-52 10:37:00 Test Item Value Reference Range Interpretation Comments PT (test code = PT) 12.8 s 12.0-14.7 [facility] SnfjdidGXDKBUTBHX2924-91-57 10:37:00 Test Item Value Reference Range Interpretation Comments INR (test code = INR) 0.97 1 0.85-1.17 [facility] HwnkwggYGBOHMNOHJ8117-44-48 10:37:00 Test Item Value Reference Range Interpretation Comments PTT (test code = PTT) 25.0 s 22.9-35.8 [facility] XczioljKYQYGRSNJQ8023-37-79 10:37:0070.5[facility] HermannHEMATOLOGY 2020-08-29 10:37:0018.8[facility] RfbymefJTSUZZMSYL1605-31-39 10:37:009.5[facility] UlcwrphYGHYOEIYZC5828-44-48 10:37:000.9[facility] QoeurfdXIXXNOKYQB8715-20-84 10:37:000.3[facility] LpxlokmBTNUXRMZPW1145-18-47 10:37:004.8[facility] GBWWTUBLTZ4663-18-50 10:37:001.3[facility] GmzmlylVMSFQOXKAR2513-50-12 10:37:000.6 [facility] FugppzqIRZIDEDYHB6452-14-33 10:37:000.1[facility] HermannHEMATOLOGY 2020-08-29 10:37:001+ *ABN*(08/29/20 5:37 AM)[facility] CnduttkKKACPIYISE0362-82-17 10:37:00Not Detected (08/29/20 5:37 AM)[facility] GC, TV,PCR, IN BGSVB0471-55-83 15:38:00 Test Item Value Reference Range Interpretation Comments FT (test code = CHTR) Not detected (qualifier Not Detected N value) FT (test code = Not detected (qualifier Not Detected N NGONO) value) FT (test code = TRVG) Not detected (qualifier Not Detected N value) URINALYSIS WITH BOJDGDUWSTZ0343-92-62 10:57:00 Test Item Value Reference Range Interpretation Comments Color (test code = UCOLR) Dk. Yellow Clarity (test code = UCLAR) Hazy Glucose (test code = UGLUC) NEGATIVE NEGATIVE N Bilirubin (test code = UBILI) NEGATIVE NEGATIVE N Ketones (test code = UKET) NEGATIVE NEGATIVE N Specific [place] (test code = 1.025 1.005-1.030 A USPGR) [...]
--- NOTE | 2022-01-29 14:58 | RAD REPORT ---
EXAM DESCRIPTION: CT - Head Brain Wo Cont - 01/29/2022 2:41 pm CLINICAL HISTORY: Ataxia COMPARISON: September 2021 TECHNIQUE: Computed axial tomography of the head was obtained. IV contrast was not requested. All CT scans are performed using dose optimization technique as appropriate and may include automated exposure control or mA/KV adjustment according to patient size. FINDINGS: An intracranial bleed is not seen . The ventricles are normal in caliber. No extra-axial fluid collection is noted. Moderate low-density areas within periventricular, deep and subcortical white matter likely represent ischemic changes secondary to small vessel disease. Fluid within the sinuses/ mastoids is not seen. IMPRESSION: No acute intracranial abnormality is seen. If patient's symptoms persist MRI of the bra in would be recommended.
[2022-01-29 15:49] LABS: Absolute Lymphocytes (CBC) 1.4 K/uL (0.7-4.9); Hematocrit 39.1 % (36.0-45.0)
[2022-01-29 16:15] LABS: Potassium 3.3 mmol/L (3.5-5.1); Troponin High Sensitivity 16.8 pg/mL (<58.9)
--- NOTE | 2022-01-29 16:25 | RAD REPORT ---
EXAM DESCRIPTION: Patrick Single View01/29/2022 3:51 pm CLINICAL HISTORY: Chest pain COMPARISON: December 2021 FINDINGS: The lungs appear clear of acute infiltrate. The heart is mildly enlarged IMPRESSION: No acute abnormalities displayed
[2022-01-29] MEDS ORDERED: MORPHINE 2 MG/ML SYR ONE (16:48)
--- NOTE | 2022-01-29 16:51 | ER ---
Nurse's Notes [facility] Name: Fawn Fleming Age: 67 yrs Sex: Female : 1955 Arrival Date: 01/29/2022 Time: 14:05 Bed 8 Private MD: Diagnosis: Chest pain, unspecified Presentation: 01/29 14:06 Chief complaint: Patient states: Chest pain for 3 days, legs are "wobbly", and has had ko1 multiple falls. Per EMS she has stopped taking her anti anxiety meds. Coronavirus screen: Client denies travel out of the [place] in the last 14 days. At this time, the client does not indicate any symptoms associated with coronavirus-19. Ebola Screen: No symptoms or risks identified at this time. Initial Sepsis Screen: Does the patient meet any 2 criteria? No. Patient's initial sepsis screen is negative. Does the patient have a suspected source of infection? No. Patient's initial sepsis screen is negative. Risk Assessment: Do you want to hurt yourself or someone else? Patient reports no desire to harm self or others. Onset of symptoms was January 26, 2022. Care prior to arrival: Medication(s) given: ASA, 81 mg, x 4, Nitroglycerin, 0.4 mg SL. 14:06 Method Of Arrival: EMS: [facility] ko1 14:06 Acuity: BLAYNE 3 ko1 17:25 Note Patients blood pressure elevated prior to discharge, provider notified, orders ko1 received, hydralazine given per order. Triage Assessment: 14:12 General: Appears uncomfortable, Behavior is anxious. Pain: Complains of pain in ko1 anterior aspect of left upper chest, xiphoid area, mid-sternal area and left breast. Cardiovascular: Reports chest pain, nausea. Historical: - Allergies: 14:12 Bactrim DS; ko1 14:12 butorphanol tartrate; ko1 14:12 Fentanyl; ko1 14:12 Reglan; ko1 14:12 Stadol; ko1 14:12 sulfamethoxazole (bulk); ko1 14:12 TRIMETHOPRIM; ko1 - PMHx: 14:12 Anxiety; Atrial Fib; Chronic pain; Bipolar disorder; COPD; esophageal varices; ko1 Hepatitis; HIV; Hypertension; Migraines; Panic Attacks; - PSHx: 14:12 Appendectomy; Bilateral shoulder repair; hernia repair; Cholecystectomy; R wrist SX; ko1 - Immunization history:: Adult Immunizations unknown, Client reports receiving the 2nd dose of the Covid vaccine. - Social history:: Smoking status: Patient reports the use of cigarette tobacco products, Patient/guardian denies using tobacco, the patient reports quitting approximately 2 years ago. Screenin:05 Abuse screen: Denies threats or abuse. Denies injuries from another. Nutritional ko1 screening: No deficits noted. Tuberculosis screening: No symptoms or risk factors identified. Fall Risk None identified. Assessment: 17:05 Pain: Pain does not radiate. Pain began 2-3 days ago. ko1 Vital Signs: 14:06 BP 212 / 136; Pulse 64; Resp 20; Temp 98; Pulse Ox 100% ; Weight 81.65 kg; Height 5 ft. ko1 4 in. (162.56 cm); Pain 8/10; 15:42 BP 134 / 77; Pulse 82; Resp 18; Temp 97.4; Pulse Ox 100% ; Pain 6/10; ko1 17:04 BP 224 / 110; Pulse 57; Resp 19; Temp 97; Pulse Ox 97% ; Pain 3/10; ko1 18:15 BP 170 / 110; Pulse 57; Resp 16; Pulse Ox 95% ; Pain 4/10; jl7 14:06 Body Mass Index 30.90 (81.65 kg, 162.56 cm) ko1 ED Course: 14:05 Patient arrived in ED. ko1 14:12 Triage completed. ko1 14:12 Arm band placed on right wrist. Patient placed in an exam room, Patient notified of ko1 wait time. 14:16 Medhat Boyer is PHCP. jl9 14:16 Justus Kolb MD is Attending Physician. jl9 14:42 CT Head Brain wo Cont In Process Unspecified. EDMS 14:50 Nancy Shannon, RN is Primary Nurse. ko1 15:41 Basic Metabolic Panel Sent. ko1 15:41 CBC with Diff Sent. ko1 15:41 Troponin HS Sent. ko1 15:53 XRAY Chest (1 view) In Process Unspecified. EDMS 17:05 Patient has correct armband on for positive identification. Bed in low position. Call ko1 light in reach. Side rails up X2. Client placed on continuous cardiac and pulse oximetry monitoring. NIBP monitoring applied. traditional chinese herbalist on. 17:05 No provider procedures requiring assistance completed. IV discontinued, intact, ko1 bleeding controlled, No redness/swelling at site. Pressure dressing applied. Patient maintains SpO2 saturation greater than 95% on room air. Administered Medications: 16:43 Drug: morphine 2 mg Route: IVP; Infused Over: 4 mins; Site: left forearm; jl7 17:12 Drug: hydrALAZINE 20 mg Route: IVP; Site: left forearm; ko1 Medication: 17:05 VIS not applicable for this client. ko1 Outcome: 16:50 Discharge ordered by . bella 17:05 Discharged to home ko1 17:05 Condition: improved 17:05 Discharge instructions given to patient, Instructed on discharge instructions, follow up and referral plans. Demonstrated understanding of instructions, follow-up care. 18:16 Discharged to home via wheelchair. jl7 18:33 Patient left the ED. bd Signatures: Dispatcher [employer] EDMS Heydi Caldera Jahala, RN RN jl7 Medhat Boyer jl9 Nancy Shannon RN RN ko1
--- NOTE | 2022-01-29 16:51 | EDPHYS ---
Physician Documentation [facility] Name: Fawn Fleming Age: 67 yrs Sex: Female : 1955 Arrival Date: 01/29/2022 Time: 14:05 Bed 8 Private MD: SHEELA Physician Justus Kolb HPI: 01/29 16:12 This 67 yrs old Female presents to ER via EMS with complaints of Chest Pain jl9 earlier today and for the past couple of days. Patient reports being out of her anxiety meds and states she has had a few falls from her legs feeling wobbly. Patient has a history of chronic back problems.. 16:12 Onset: The symptoms/episode began/occurred 3 day(s) ago. Associated signs and symptoms: jl9 Pertinent positives: chest pain. Modifying factors: The patient symptoms are alleviated by nothing, the patient symptoms are aggravated by nothing. The patient has experienced similar episodes in the past. Historical: - Allergies: 14:12 Bactrim DS; ko1 14:12 butorphanol tartrate; ko1 14:12 Fentanyl; ko1 14:12 Reglan; ko1 14:12 Stadol; ko1 14:12 sulfamethoxazole (bulk); ko1 14:12 TRIMETHOPRIM; ko1 - PMHx: 14:12 Anxiety; Atrial Fib; Chronic pain; Bipolar disorder; COPD; esophageal varices; ko1 Hepatitis; HIV; Hypertension; Migraines; Panic Attacks; - PSHx: 14:12 Appendectomy; Bilateral shoulder repair; hernia repair; Cholecystectomy; R wrist SX; ko1 - Immunization history:: Adult Immunizations unknown, Client reports receiving the 2nd dose of the Covid vaccine. - Social history:: Smoking status: Patient reports the use of cigarette tobacco products, Patient/guardian denies using tobacco, the patient reports quitting approximately 2 years ago. ROS: 16:14 Constitutional: Negative for fever, chills, and weight loss, Eyes: Negative for injury, jl9 pain, redness, and discharge, ENT: Negative for injury, pain, and discharge, Neck: Negative for injury, pain, and swelling. 16:14 Respiratory: Negative for shortness of breath, cough, wheezing, and pleuritic chest pain, Abdomen/GI: Negative for abdominal pain, nausea, vomiting, diarrhea, and constipation, Back: Negative for injury and pain, : Negative for injury, bleeding, discharge, and swelling. 16:14 MS/Extremity: Negative for injury and deformity, Skin: Negative for injury, rash, and discoloration, Neuro: Negative for headache, weakness, numbness, tingling, and seizure, Psych: Negative for depression, anxiety, suicide ideation, homicidal ideation, and hallucinations, Allergy/Immunology: Negative for hives, rash, and allergies, Endocrine: Negative for neck swelling, polydipsia, polyuria, polyphagia, and marked weight changes, Hematologic/Lymphatic: Negative for swollen nodes, abnormal bleeding, and unusual bruising. 16:14 Cardiovascular: Positive for chest pain. 16:14 MS/extremity: Positive for Exam: 16:15 Constitutional: This is a well developed, well nourished patient who is awake, alert, jl9 and in no acute distress. Head/Face: Normocephalic, atraumatic. Eyes: Pupils equal round and reactive to light, extra-ocular motions intact. Lids and lashes normal. Conjunctiva and sclera are non-icteric and not injected. Cornea within normal limits. Periorbital areas with no swelling, redness, or edema. ENT: Mucous membranes moist. Neck: Trachea midline, no thyromegaly or masses palpated, and no cervical lymphadenopathy. Supple, full range of motion without nuchal rigidity, or vertebral point tenderness. No Meningismus. Chest/axilla: Normal chest wall appearance and motion. Nontender with no deformity. No lesions are appreciated. 16:15 Respiratory: Lungs have equal breath sounds bilaterally, clear to auscultation and percussion. No rales, rhonchi or wheezes noted. No increased work of breathing, no retractions or nasal flaring. Abdomen/GI: Soft, non-tender, with normal bowel sounds. No distension or tympany. No guarding or rebound. No evidence of tenderness throughout. Back: No spinal tenderness. No costovertebral tenderness. Full range of motion. Skin: Warm, dry with normal turgor. Normal color with no rashes, no lesions, and no evidence of cellulitis. MS/ Extremity: Pulses equal, no cyanosis. Neurovascular intact. Full, normal range of motion. Neuro: Awake and alert, GCS 15, oriented to person, place, time, and situation. Cranial nerves II-XII grossly intact. Motor strength 5/5 in all extremities. Sensory grossly intact. Cerebellar exam normal. Normal gait. Psych: Awake, alert, with orientation to person, place and time. Behavior, mood, and affect are within normal limits. 16:15 Cardiovascular: Rate: normal, Rhythm: regular, Pulses: Pulses are 2+ in right radial artery, right dorsalis pedis artery, left radial artery and left dorsalis pedis artery. Heart sounds: normal, Edema: is not appreciated. Vital Signs: 14:06 BP 212 / 136; Pulse 64; Resp 20; Temp 98; Pulse Ox 100% ; Weight 81.65 kg; Height 5 ft. ko1 4 in. (162.56 cm); Pain 8/10; 15:42 BP 134 / 77; Pulse 82; Resp 18; Temp 97.4; Pulse Ox 100% ; Pain 6/10; ko1 17:04 BP 224 / 110; Pulse 57; Resp 19; Temp 97; Pulse Ox 97% ; Pain 3/10; ko1 18:15 BP 170 / 110; Pulse 57; Resp 16; Pulse Ox 95% ; Pain 4/10; jl7 14:06 Body Mass Index 30.90 (81.65 kg, 162.56 cm) ko1 MDM: 14:16 Patient medically screened. jl9 16:15 Data reviewed: vital signs, nurses notes. 9 16:49 Test interpretation: by ED physician or midlevel provider: ECG. Counseling: I had a jl9 detailed discussion with the patient and/or guardian regarding: the historical points, exam findings, and any diagnostic results supporting the discharge/admit diagnosis, lab results, radiology results, the need for outpatient follow up, to return to the emergency department if symptoms worsen or persist or if there are any questions or concerns that arise at home. Response to treatment: the patient's symptoms have resolved after treatment. 16:49 Counseling: I had a detailed discussion with the patient and/or guardian regarding: jl9 Patient states she is pain free other than her chronic lower back pain. Patient agrees to follow up with PCP in 1-2 days. . 01/29 14:23 Order name: Basic Metabolic Panel; Complete Time: 16:16 01/29 14:23 Order name: CBC with Diff; Complete Time: 16:16 01/29 14:23 Order name: Troponin HS; Complete Time: 16:16 01/29 14:23 Order name: XRAY Chest (1 view); Complete Time: 16:37 01/29 14:23 Order name: CT Head Brain wo Cont; Complete Time: 15:26 01/29 14:23 Order name: EKG; Complete Time: 14:23 01/29 14:23 Order name: Cardiac monitoring; Complete Time: 14:55 01/29 14:23 Order name: EKG - Nurse/Tech; Complete Time: 14:55 01/29 14:23 Order name: IV Saline Lock; Complete Time: 15:41 01/29 14:23 Order name: Labs collected and sent; Complete Time: 15:41 01/29 14:23 Order name: O2 Per Protocol; Complete Time: 14:55 01/29 14:23 Order name: O2 Sat Monitoring; Complete Time: 14:55 Administered Medications: 16:43 Drug: morphine 2 mg Route: IVP; Infused Over: 4 mins; Site: left forearm; jl7 17:12 Drug: hydrALAZINE 20 mg Route: IVP; Site: left forearm; ko1 Disposition Summary: 01/29/22 16:50 Discharge Ordered Location: Home jl9 Condition: Stable jl9 Diagnosis - Chest pain, unspecified jl9 Followup: jl9 - With: Private Physician - When: 1 - 2 days - Reason: Recheck today's complaints, Continuance of care, Re-evaluation by your physician Discharge Instructions: - Discharge Summary Sheet jl9 - Nonspecific Chest Pain, Adult, [id number] jl9 - Chronic Back Pain, [id number] jl9 Forms: - Medication Reconciliation Form jl9 - Thank You Letter jl9 - Antibiotic Education jl9 - Prescription Opioid Use jl9 Signatures: Dispatcher [employer] Jesica Delvalle RN RN jl7 Medhat Boyer jl9 Nancy Shannon RN RN ko1
[2022-01-29] MEDS ORDERED: HYDRALAZINE HCL 20 MG/ML VIAL ONE ×2 (17:26→18:03)
[2022-01-29 19:21] VITALS: TEMP 97
[2022-01-29 19:24] VITALS: BP 170/110; O2SAT 95
--- NOTE | 2022-02-01 05:42 | EKG ---
Test Date: 2022-01-29 Test Time: 14:22:22 Silver Wrapper: KAVITA MEASUREMENT RESULTS: Intervals: Rate: 55 OR: 120 QRSD: 88 QT: 528 QTc: 505 [place]: P: OR: 120 QRS: -10 T: -3 INTERPRETIVE STATEMENTS: Sinus bradycardia Voltage criteria for left ventricular hypertrophy ST & T wave abnormality, consider anterior ischemia Prolonged QT Abnormal ECG Compared to ECG 01/25/2022 16:43:39 ST (T wave) deviation now present Possible ischemia now present Early repolarization no longer present Electronically Signed On 02-01-22 05:39:35 CDT by Per Crane
== END 2022-01-29 18:33 | disposition home or self-care (01) ==
LOC: ER 14:04
DX: R07.9 Chest pain, unspecified (principal); I10 Essential (primary) hypertension; I48.91 Unspecified atrial fibrillation; J44.9 Chronic obstructive pulmonary disease, unspecified; Z21 Asymptomatic human immunodeficiency virus [HIV] infection status; Z72.0 Tobacco use; Z88.1 Allergy status to other antibiotic agents; Z88.2 Allergy status to sulfonamides; Z88.5 Allergy status to narcotic agent; Z88.8 Allergy status to other drugs, medicaments and biological substances
CPT/HCPCS: 93005; 85025; 80048; 36415; 84484; 70450; 71045; 96375; 96374; 99285; J0360 ×2; J2270

== ENCOUNTER 2022-01-30 12:44 | Emergency (ER) | payer OTHER ==
--- OUTSIDE RECORDS SUMMARY | 2022-01-30 13:08 | XMS REPORT | Continuity of Care Document ---
:1955 Author Organization [facility] t Address [address] [place] [address] Care Team Providers Name Role Phone Urmila Rahman Primary Care Physician ELAN LIRA Attending Clinician Unavailable SANTIAGO CARDENAS Attending Clinician Unavailable Doctor Unassigned, Carleton Attending Clinician Unavailable Bill GUO Attending Clinician Unavailable Bill Rose Attending Clinician [facility] Attending Clinician Unavailable Santiago Sanchez Attending Clinician Mike Lund Attending Clinician Unavailable Beverly Layton MD Attending Clinician Eliseo Arce MD Attending Clinician Carol Ann DESIGN COORDINATOR, Sarai Lieberman Attending Clinician [phone] Ashly Pelletier MA Attending Clinician Unavailable Robbi [...] Number Effective Date Expiration Date S gabino [facility] [id number] 2012 STARPLUS OON 00:00:00 EXCEPT [facility] DUAL [id number] 2020 COMP HMO D SNP 00:00:00 MEDICAID OF [place] [id number] 2020 00:00:00 Problems Condition Condition Condition Status Onset Resolution Last Treating Co mments Source Name Details Category Date Date Treatment Clinician Date Gastropare Gastropare Disease Active Overview : Methodi sis sis 4-[address] 00:00: [facility] of this [facility] 00 note l might be different from the original. Added automatic ally from request for surgery [id number] Dysphagia Dysphagia Disease Active Overview: Methodi 4-[address] 00:00: g of this [facility]osp[facility] 00 note l might be different from the original. Added automatic ally from request for surgery [id number] CCL / EPS CCL / EPS Diagnosis Active 2020-10-15 Memoria PVI PVI 3-30 17:07:00 l ABLATION ABLATION 00:00: Patel soares W/ CARTO / W/ CARTO / 00 GA / T GA / T Active 08/19/2020 [facility] Food Food Disease Active 2019-05 Methodi intoleranc [...] [facility] hoxazole 1-25 Clear 00:00: Garcia 00 [facility] trimetho DA Active SV [facility] prim 1- Clear 00:00: Garcia 00 [facility] codeine DA Active SV N/V [facility] 1-25 Clear 00:00: Garcia [facility] Metoclop [...] Date Stop Date Source Natural [facility] father Kidney disease Method [facility] mother [facility] Social History Social Habit Start Date Stop Date Quantity Comments Source History of tobacco Cigarette Smoker Buddhism use Hospital History SDOH Buddhism Alcohol Frequency Hospita l History SDOH [facility] Alcohol Std Drinks Hospit al History SDDE [facility] Alcohol Binge Hospital Exposure to 2021-12-02 2021-12-12 Not sure University SARS-CoV-2 (event) 00:00:00 23:54:00 [facility] Alcohol intake 2020-12-08 2020-12-08 Current drinker [facility]o dist 00:00:00 00:00:00 of alcohol Hospital (finding) Cigarettes smoked 2020-09-05 2020-09-[address] current (pack per 00:00:00 00:00:00 Hospita l day) - Reported Cigarette 2020-09-05 2020-09-05 Buddhism pack-years 00:00:00 00:00:00 Hospital Tobacco use and 2020-08-06 2020-08-06 Former smokeless Uni versity of exposure 00:00:00 00:00:[address] [facility] Alcohol Comment 2016-09-23 2016-09-23 rare Buddhism 00:00:00 00:00:00 Hospital Tobacco Comment 2015-02-14 2015-02-14 Smokes approx 1-2 Un iversity of 00:00:00 00:00:00 cigarettes per [facility] when she Branch smokes Sex Assigned At [birth year] [facility] 00:00:00 00:00:00 Smoking Status Start Date Stop Date Source Ex-smoker 2020-08-06 00:00:00 2020-08-06 00:00:00 [facility] Medications Ordered Filled Start Stop Current Ordering Indication Dosage Frequency Signature Comments Components Source Medication Medication Date Date Medication? Clinician (SIG) Name Name methocarbam No 500mg 500 mg, U nivers oL 12-13 Oral, ity of (ROBAXIN) 07:45: 06:35 ONCE[place] 500 [place] :00 dose, On Medic al mg [facility] 12/13/21 at 0245, Routine ketorolac No 30mg 30 mg, Unive rs (TORADOL) 12-13 Intramuscu ity of injection 07:45: 06:34 lar, ONCE, [place] 30 mg 00 :00 1 dose, On Medical [place] 12/13/21 at 0245, JOE naproxen 2022-0 Yes [id number] 500mg Take 1 U nivers (NAPROSYN) 7-24 tablet by ity of 500 mg 00:00: mouth in [place] tablet 00 the Medical morning Branch and 1 tablet in the evening. Take with meals. methocarbam 2022-0 Yes [id number] 500mg Take 1 Univers oL 500 mg 7-24 tablet by ity o f tablet 00:00: mouth 4 [place] ([facility]) Medical times [place] daily. naproxen 2022-0 Yes [id number] 500mg Take 1 U nivers (NAPROSYN) 7-24 tablet by ity of 500 mg 00:00: mouth in [place] tablet 00 the Medical morning Branch and 1 tablet in the evening. Take with meals. methocarbam 2022-0 Yes [id number] 500mg Take 1 Univers oL 500 mg 7-24 tablet by ity o f tablet 00:00: mouth 4 [place] [address] [address] [facility]) Medical times [place] daily. naproxen 2022-0 Yes [id number] 500mg Take 1 U nivers (NAPROSYN) 7-24 tablet by ity of 500 mg 00:00: mouth in [place] tablet 00 the Medical morning Branch and 1 tablet in the evening. Take with meals. methocarbam 2022-0 Yes [id number] 500mg Take 1 Univers oL 500 mg 7-24 tablet by ity o f tablet 00:00: mouth 4 [place] [address] [address] [facility]) Medical times [place] daily. hydralAZINE 2022-0 Yes 25mg Take 25 mg Univers (APRESOLINE 7-01 by mouth ity of ) 25 mg 08:47: daily. [address] Branch hydralAZINE 2022-0 Yes 25mg Take 25 mg Univers (APRESOLINE 7-01 by mouth ity of ) 25 mg 08:47: daily. [address] Branch hydralAZINE 2022-0 Yes 25mg Take 25 mg Univers (APRESOLINE 7-01 by mouth ity of ) 25 mg 08:47: daily. [address] hydralAZINE 2022-0 Yes 25mg Take 25 mg Univers (APRESOLINE 7-01 by mouth ity of ) 25 mg 08:47: daily. [address] buPROPion 2021-0 Yes [id number] 150mg Take 1 U nivers XL 4-12 tablet by ity of (WELLBUTRIN 00:00: mouth [place] XL) 150 mg 00 daily. Medical 24 hr Branch tablet busPIRone 2021-0 Yes [id number] 30mg Take 1 Un matt 30 mg 4-12 tablet by ity of tablet 00:00: mouth 2 (two) Medical times Branch daily. SERTraline 2021-0 Yes [id number] 200mg Take 2 Univers 100 mg 4-12 tablets by ity of tablet 00:00: mouth [place] 00 daily. Medical Branch buPROPion 2021-0 Yes [id number] 150mg Take 1 U nivers XL 4-12 tablet by ity of (WELLBUTRIN 00:00: mouth [place] XL) 150 mg 00 daily. Medical 24 hr Branch tablet busPIRone 2021-0 Yes [id number] 30mg Take 1 Un matt 30 mg 4-12 tablet by ity of tablet 00:00: mouth 2 (two) Medical times Branch daily. SERTraline 2021-0 Yes [id number] 200mg Take 2 Univers 100 mg 4-12 tablets by ity of tablet 00:00: mouth [place] 00 daily. Medical Branch buPROPion 2021-0 Yes [id number] 150mg Take 1 U nivers XL 4-12 tablet by ity of (WELLBUTRIN 00:00: mouth [place] XL) 150 mg 00 daily. Medical 24 hr Branch tablet busPIRone 2021-0 Yes [id number] 30mg Take 1 Un matt 30 mg 4-12 tablet by ity of tablet 00:00: mouth 2 (two) Medical times Branch daily. SERTraline 2021-0 Yes [id number] 200mg Take 2 Univers 100 mg 4-12 tablets by ity of tablet 00:00: mouth [place] 00 daily. Medical Branch buPROPion 2021-0 Yes [id number] 150mg Take 1 U nivers XL 4-12 tablet by ity of (WELLBUTRIN 00:00: mouth [place] XL) 150 mg 00 daily. Medical 24 hr Branch tablet busPIRone 2021-0 Yes [id number] 30mg Take 1 Un matt 30 mg 4-12 tablet by ity of tablet 00:00: mouth 2 [place] 00 (two) Medical times Branch daily. SERTraline 2021-0 Yes [id number] 200mg Take 2 Univers 100 mg 4-12 tablets by ity of tablet 00:00: mouth [place] 00 daily. Medical Branch raltegravir 2021-0 Yes [id number] 400mg Take 1 Univers (ISENTRESS) 3-28 tablet by ity of 400 mg 00:00: mouth 2 [place] tablet 00 (two) Medical times Branch daily. raltegravir 2021-0 Yes [id number] 400mg Take 1 Univers (ISENTRESS) 3-28 tablet by ity of 400 mg 00:00: mouth 2 [place] tablet 00 (two) Medical times Branch daily. raltegravir 2021-0 Yes [id number] 400mg Take 1 Univers (ISENTRESS) 3-28 tablet by ity of 400 mg 00:00: mouth 2 [place] tablet 00 (two) Medical times Branch daily. raltegravir 2021-0 Yes [id number] 400mg Take 1 Univers (ISENTRESS) 3-28 tablet by ity of 400 mg 00:00: mouth 2 [place] tablet 00 (two) Medical times Branch daily. raltegravir 2021-0 Yes [id number] 400mg Take 1 Univers (ISENTRESS) 3-28 tablet by ity of 400 mg 00:00: mouth 2 [place] tablet 00 (two) Medical times Branch daily. LORazepam 1 2021-0 Yes [id number] 1mg Take 1 Univers mg tablet 3-21 [...] a tablet day. buPROPion 2021-0 202- No [id number] 150mg Take 1 Univers XL 1-24 04-12 tablet by ity of (WELLBUTRIN 00:00: 00:00 [place] XL) 150 mg 00 :00 daily. Medical 24 hr Branch tablet busPIRone 2021- No [id number] 30mg Take 1 U nivers 30 mg 06-15-12 tablet by ity of tablet 00:00: 00:00 mouth 2 [place] 00 :00 (two) Medical times Branch daily. SERTraline 2021- No [id number] 200mg Take 2 Univers 100 mg 06-15-12 tablets by ity of tablet 00:00: 00:00 mouth [place] 00 :00 daily. Medical Branch emtricitabi Yes [id number] Take one Univers ne-tenofovi 1-20 po daily ity of r alafen 00:00: [place] (DESCOVY) 00 Medical tablet Branch emtricitabi Yes [id number] Take one Univers ne-tenofovi 1-20 po daily ity of r alafen 00:00: [place] (DESCOVY) 00 Medical tablet Branch emtricitabi Yes [id number] Take one Univers ne-tenofovi 1-20 po daily ity of r alafen 00:00: [place] (DESCOVY) 00 Medical tablet Branch emtricitabi Yes [id number] Take one Univers ne-tenofovi 1-20 po daily ity of r alafen 00:00: [place] (DESCOVY) 00 Medical tablet Branch emtricitabi Yes [id number] Take one Univers ne-tenofovi 1-20 po daily ity of r alafen 00:00: [place] (DESCOVY) 00 Medical tablet Branch metoprolol Yes [id number] Take 1 [facility] tartrate 7-26 tablet Health (Lopressor) 00:00: (100 mg 100 MG 00 total) by tablet mouth 2 (two) times a day AND 0.5 tablets (50 mg total) every night. metoprolol Yes [id number] Take 1 [facility] tartrate 7-26 tablet Health [...] (affected area in groin) hydrALAZINE Yes 50mg Q.[id number] Take 50 mg Methodi (APRESOLINE 7-[id number] mouth [address] ) 50 MG [...] area in groin) hydrALAZINE 2021-0 Yes 50mg Q.[id number] Take 50 mg Methodi (APRESOLINE 7-19 [id number] mouth 3 [address] ) 50 MG [...] (affected area in groin) hydrALAZINE Yes 50mg Q.[id number] Take 50 mg [facility]i (APRESOLINE 7-19 [id number] mouth 3 [facility] ) 50 MG [...] area in groin) hydrALAZINE 0 Yes 50mg Q.[id number] Take 50 mg Methodi (APRESOLINE 7-19 [id number] mouth 3 st ) 50 MG [...] area in groin) hydrALAZINE 0 Yes 50mg Q.[id number] Take 50 mg Methodi (APRESOLINE 7-19 [id number] mouth [address] ) 50 MG [...] spita 25 needed for l anxiety. sertraline 2021-0 Yes 200mg QD Take 200 Me thodi (ZOLOFT) 7-[address] 100 MG 10:51: mouth Hospita tablet 25 daily. l clobetasol Yes 1{appli Q.5D Apply 1 M ethodi (TEMOVATE) 7-19 cation} applicatio st 0.05 % 10:51: n Hospita ointment 25 topically l 2 (two) times a day. (affected area in groin) hydrALAZINE Yes 50mg Q.[id number] Take 50 mg Methodi (APRESOLINE 7-[id number] mouth [address] ) 50 MG [...] Hospita tablet 25 daily. l nystatin-tr Yes [id number] Apply to [facility] 11-25 area(s) 3 ity of cream 00:00: (three) [place] 00 times Medical daily. Branch nystatin-tr 2020-0 Yes [id number] Apply to [facility] iainolone 7-06 area(s) 3 ity of cream 00:00: (three) [place] 00 times Medical daily. Branch nystatin-tr 2020-0 Yes [id number] Apply to [facility] iamcinolone 7-06 area(s) 3 ity of cream 00:00: (three) [place] 00 times Medical daily. Branch nystatin-tr 2020-0 Yes [id number] Apply to [facility] iainolone 7-06 area(s) 3 ity of cream 00:00: (three) [place] 00 times Medical daily. Branch nystatin-tr 2020-0 Yes [id number] Apply to [facility] iainolone 7-06 area(s) 3 ity of cream 00:00: (three) [place] 00 times Medical daily. Branch budesonide- 1- No 1{puff} QD Inhale 1 Methodi formoteroL 6-25 06-[address] (SYMBICORT) 14:37: 00:00 morning. H ospita 160-4.5 02 :00 l mcg/actuati on inhaler hydrALAZINE 0 Yes [id number] 50mg Q.[id number] Take 1 [facility] (Apresoline 6-11 [id number] tablet (50 Health ) 50 MG 00:00: 3D mg total) tablet 00 by mouth 3 (three) times a day. hydrALAZINE 0 Yes [id number] 50mg Q.[id number] Take 1 [facility] (Apresoline 6-11 [id number] tablet (50 Health ) 50 MG 00:00: [...] 0 Yes 200mg 200 mg. UT (Zoloft) 30 Health 100 MG 00:00: tablet 00 lisinopril Yes [facility] 40 MG 5-30 Health tablet 00:00: 00 sertraline 2021- No 200mg 200 mg. UT (Zoloft) 30 - Health 100 MG 00:00: 00:00 tablet 00 :00 mupirocin Yes [facility] (Bactroban) 10-17 Health 2 % 00:00: ointment 00 mupirocin Yes [facility] (Bactroban) 10-17 Health 2 % 00:00: ointment 00 nystatin 2020- No [id number] Q.25D Take 5 mL Methodi (MYCOSTATIN 10-06 [...] 1 U T (Temovate) 5-14 cation} applicatio [employer] [place] 0.05 % 00:00: n ointment 00 topically [...] ia 4-10 (Same as: l 14:00: Zoloft) [place] pantoprazol No Notes: Caesar lisa e 4-10 Tablet l 14:00: should not [place] 00 be chewed or crushed. (Same as: Protonix) Amiodarone No Notes: Memor ia 4-10 (Same as: l 14:00: Cordarone) [place] Amlodipine No Notes: Memor ia 4-10 (Same as: l 14:00: Norvasc) [place] emtricitabi No Notes: Caesar lisa ne 200 MG / 4-10 (Same as: l tenofovir 14:00: Descovy) Herm ariel alafenamide 00 Non-formul 25 MG Oral nancy Tablet [Descovy] Sertraline No Notes: Memor ia 4-10 (Same as: l 14:00: Zoloft) [place] 00 pantoprazol No Notes: Caesar lisa e 4-10 Tablet l 14:00: should not [place] 00 be chewed or crushed. (Same as: [...] ia 4-10 (Same as: l 14:00: Cordarone) [place] Amlodipine No Notes: Memor ia 4-10 (Same [...] e 4-10 Tablet l 14:00: should not [place] 00 be chewed or crushed. (Same as: Protonix) Amiodarone No Notes: Memor ia 4-10 (Same as: l 14:00: Cordarone) [place] 00 Amlodipine No Notes: Memor ia 4-10 (Same as: l 14:00: Norvasc) [place] emtricitabi No Notes: Caesar lisa ne 200 MG / 4-10 (Same as: l tenofovir 14:00: Descovy) Herm ariel alafenamide 00 Non-formul 25 MG Oral nancy Tablet [Descovy] Sertraline No Notes: Memor ia 4-10 (Same as: l 14:00: Zoloft) [place] 00 pantoprazol No Notes: Caesar lisa e 4-10 Tablet l 14:00: should not [place] 00 be chewed or crushed. (Same as: Protonix) Amiodarone No Notes: Memor ia 4-10 (Same as: l 14:00: Cordarone) [place] 00 Sucralfate No Notes: May M emoria [...] M emoria 4-10 interfere l 02:00: w/enteral [place] 00 feeds - Take 1 hr before [...] 0.9% 4-10 (Same as: l 02:00: BD [place] 00 Posiflush) Eliquis No Notes: Memoria 4-10 [...] 0.9% 4-10 (Same as: l 02:00: BD [place] 00 Posiflush) Eliquis No Notes: Memoria 4-10 Same as: l 02:00: Eliquis [place] 00 Hydralazine No Notes: Caesar lisa Hydrochlori 4-10 (Same as: l de 50 MG 02:00: Apresoline Her mitchell Oral Tablet 00 ) May interfere w/enteral feedings Take With Food Sucralfate No Notes: May M emoria 4-10 interfere l 02:00: w/enteral [place] 00 feeds - Take 1 hr before [...] M emoria 4-10 interfere l 02:00: w/enteral [place] 00 feeds - Take 1 hr before or 2 hr after antacids, dairy pdt, meals & minerals - On empty stomach. For patients unable to swallow tablet, dissolve in 10mL - 30mL of water or juice and stir before giving. (Same As: Carafate) Saline No Notes: Memoria Flush 0.9% 4-10 (Same as: l 02:00: BD [place] 00 Posiflush) Eliquis No Notes: Memoria 4-10 Same as: l 02:00: Eliquis [place] 00 Hydralazine No Notes: Caesar lisa Hydrochlori 4-10 (Same as: l de 50 MG 02:00: Apresoline Her [place] Oral Tablet 00 ) May interfere w/enteral feedings Take With Food Sucralfate No Notes: May M emoria 4-10 interfere l 02:00: w/enteral [place] 00 feeds - Take 1 hr before [...] not exceed l #3 00:12: 4gm/day of [place] 00 acetaminop hen. (Same as: Tylenol with [...] not exceed l #3 00:12: 4gm/day of [place] 00 acetaminop hen. (Same as: Tylenol with Codeine # 3) acetaminoph No Notes: Do M emoria en-codeine 4-10 not exceed l #3 00:12: 4gm/day of [place] acetaminop hen. (Same as: Tylenol with Codeine # 3) acetaminoph No Notes: Do M emoria en-codeine 4-10 not exceed l #3 00:12: 4gm/day of [place] acetaminop hen. (Same as: Tylenol with Codeine # 3) Buspirone No Notes: Memori a 4-09 (Same As: l 22:00: BuSpar) Lisinopril No 40 mg, 1 Mem oria 4-09 tab, l 22:00: Route: PO, [place] 00 Drug form: TAB, BID, Dosing Weight [...] l Tablet 22:00: Route: PO, [place] [facility] Drug form: TAB, BID, Dosing [...] 2021-0 No 40 mg, 1 Mem oria 4- tab, l 22:00: Route: PO, [place] 00 Drug form: TAB, BID, Dosing Weight [...] tartrate 4-09 tab, l 22:00: Route: PO, [place] 00 Drug form: TAB, BID, Dosing Weight [...] oria 4-09 tab, l 22:00: Route: PO, [place] 00 Drug form: TAB, BID, Dosing Weight [...] oria 4-09 tab, l 22:00: Route: PO, [place] 00 Drug form: TAB, BID, Dosing Weight [...] 0 Buspirone 2020-0 No Notes: Memori a 4-09 (Same As: l 22:00: BuSpar) Lisinopril 2020-0 No 40 mg, 1 Mem oria 4-09 tab, l 22:00: Route: PO, [place] 00 Drug form: TAB, BID, Dosing Weight 97.273, kg, Start date: 08/29/20 17:00:00 CDT, Duration: 30 day, Stop date: 09/28/20 9:00:00 CDT metoprolol 1-0 No 100 mg, 1 Me moria tartrate 4-09 tab, l 22:00: Route: PO, [place] 00 Drug form: TAB, BID, Dosing Weight [...] Notes: Memoria 4-09 (Same l 17:07: as:MORPhin [place] 00 e Sulfate) Morphine No Notes: Memoria 4-09 (Same l 17:07: as:MORPhin [place] 00 e Sulfate) Morphine No Notes: Memoria 4-09 (Same l 17:07: as:MORPhin [place] 00 e Sulfate) buPROPion 2020-0 No 150 [...] tab, l extended 16:00: Route: PO, Her mitchlel release 00 Drug form: ERTAB, Q24H, Dosing [...] Marty 00 Stop date: 08/29/20 10:40:00 CDT protamine 2020-0 [...] 30 tab, 0 coated Refill(s), tablet Pharmacy: [facility], 162.56, cm, 08/29/20 5:30:00 CDT, Height, 97.273, kg, 08/29/20 5:30:00 CDT, Weight pantoprazol 2020-0 Yes 40 mg = 1 M emoria e 40 mg 4-09 tab, PO, l oral 15:27: Daily, # Marty enteric 00 30 tab, 0 coated Refill(s), tablet Pharmacy: [facility], 162.56, cm, 08/29/20 5:30:00 CDT, Height, 97.273, kg, 08/29/20 5:30:00 CDT, Weight pantoprazol 2021-0 Yes 40 mg = 1 M emoria e 40 mg 4-09 tab, PO, l oral 15:27: Daily, # [place] enteric 00 30 tab, 0 coated Refill(s), tablet Pharmacy: [facility], 162.56, cm, 08/29/20 5:30:00 CDT, Height, 97.273, kg, 08/29/20 5:30:00 CDT, Weight pantoprazol 2021-0 Yes 40 mg = 1 M emoria e 40 mg 4-09 tab, PO, l oral 15:27: Daily, # [place] enteric 00 30 tab, 0 coated Refill(s), tablet Pharmacy: [facility], 162.56, cm, 08/29/20 5:30:00 CDT, Height, 97.273, kg, 08/29/20 5:30:00 CDT, Weight pantoprazol 2021-0 Yes 40 mg = 1 M emoria e 40 mg 4-09 tab, PO, l oral 15:27: Daily, # [place] enteric 00 30 tab, 0 coated Refill(s), tablet Pharmacy: [facility], 162.56, cm, 08/29/20 5:30:00 CDT, Height, 97.273, kg, 08/29/20 5:30:00 CDT, Weight pantoprazol 2021-0 Yes 40 mg = 1 M emoria e 40 mg 4-09 tab, PO, l oral 15:27: Daily, # [place] enteric 00 30 tab, 0 coated Refill(s), tablet Pharmacy: [facility], 162.56, cm, 08/29/20 5:30:00 CDT, Height, 97.273, kg, 08/29/20 5:30:00 CDT, Weight pantoprazol 2021-0 Yes 40 mg = 1 M emoria e 40 mg 4-09 tab, PO, l oral 15:27: Daily, # [place] enteric 00 30 tab, 0 coated Refill(s), tablet Pharmacy: [facility], 162.56, cm, 08/29/20 5:30:00 CDT, Height, [...] Skylar nn 00 tab, 0 Refill(s), Pharmacy: [facility], 162.56, cm, 08/29/20 5:30:00 CDT, Height, 97.273, kg, 08/29/20 5:30:00 CDT, Weight pantoprazol 2020-0 No 40 mg = 1 M emoria e 40 mg 4-09 tab, PO, l oral 15:26: Daily, # [place] enteric 00 30 tab, 0 coated Refill(s) tablet sucralfate 2020-0 Yes 1 gm = 1 Mem oria 1 g oral 4-09 tab, PO, l tablet 15:26: Q12H, # 28 Skylar nn 00 tab, 0 Refill(s), Pharmacy: [facility], 162.56, cm, 08/29/20 5:30:00 CDT, Height, [...] Skylar nn 00 tab, 0 Refill(s), Pharmacy: [facility], 162.56, cm, 08/29/20 5:30:00 CDT, Height, [...] Skylar nn 00 tab, 0 Refill(s), Pharmacy: [facility], 162.56, cm, 08/29/20 5:30:00 CDT, Height, [...] Skylar nn 00 tab, 0 Refill(s), Pharmacy: [place] [id number], 162.56, cm, 08/29/20 5:30:00 CDT, Height, 97.273, kg, 08/29/20 5:30:00 CDT, Weight pantoprazol 2020-0 No 40 mg = 1 M emoria e 40 mg 4-09 tab, PO, l oral 15:26: Daily, # [place] enteric 00 30 tab, 0 coated Refill(s) tablet sucralfate 2020-0 Yes 1 gm = 1 Mem oria 1 g oral 4-09 tab, PO, l tablet 15:26: Q12H, # 28 Skylar nn 00 tab, 0 Refill(s), Pharmacy: [place] [address], 162.56, cm, 08/29/20 5:30:00 CDT, Height, 97.273, kg, 08/29/20 5:30:00 CDT, Weight pantoprazol 2020-0 No 40 mg = 1 M emoria e 40 mg 4-09 tab, PO, l oral 15:26: Daily, # [place] enteric 00 30 tab, 0 coated Refill(s) tablet sucralfate 2020-0 Yes 1 gm = 1 Mem oria 1 g oral 4-09 tab, PO, l tablet 15:26: Q12H, # 28 Skylar nn 00 tab, 0 Refill(s), Pharmacy: [facility], 162.56, cm, 08/29/20 5:30:00 CDT, Height, [...] a 4-09 (Same as: l 15:25: Ativan) [place] Saline No Notes: Memoria Flush 0.9% 4-09 (Same as: l 15:25: BD [place] 00 Posiflush) Saline No Notes: Memoria Flush 0.9% 4-09 (Same as: l 15:25: BD [place] 00 Posiflush) Lorazepam No Notes: Memori a 4-09 (Same as: l 15:25: Ativan) [place] Lorazepam No Notes: Memori a 4-09 (Same as: l 15:25: Ativan) [place] Saline No Notes: Memoria Flush 0.9% 4-09 (Same as: l 15:25: BD [place] 00 Posiflush) Lorazepam No Notes: Memori a 4-09 (Same as: l 15:25: Ativan) [place] 00 Saline No Notes: Memoria Flush 0.9% 4-09 (Same as: l 15:25: BD [place] 00 Posiflush) Lorazepam No Notes: Memori a 4-09 (Same as: l 15:25: Ativan) [place] 00 Saline No Notes: Memoria Flush 0.9% 4-09 (Same as: l 15:25: BD [place] 00 Posiflush) Lorazepam No Notes: Memori a 08-29 (Same as: l 15:25: Ativan) Isuprel HCl No Route: IV, Memoria (ANES) 0.2 08-29 Drug form: l mg + 15:00: INJ, [place] 00 Dosing Weight 97.3, kg, Start date: [...] 08-29 Drug form: l 14:18: INJ, ONCE, [place] 00 Stop date: 08/29/20 9:18:00 CDT heparin 202-0 No Route: IV, Caesar lisa (ANES) 08-29 Drug form: l 14:18: INJ, ONCE, Stop date: 08/29/20 9:18:00 CDT heparin 202-0 No Route: IV, Caesar lisa (ANES) 08-29 Drug form: l 14:18: INJ, ONCE, Marty 00 Stop date: 08/29/20 9:18:00 CDT heparin 2020-0 No Route: IV, Caesar lisa (ANES) 08-29 Drug form: l 14:18: INJ, ONCE, [place] 00 Stop date: 08/29/20 9:18:00 CDT heparin 2020-0 No Route: IV, Caesar lisa (ANES) 08-29 Drug form: l 14:18: INJ, ONCE, [place] 00 Stop date: 08/29/20 9:18:00 CDT Labetalol 2020-0 No 10 mg, Memori a 08-29 Route: l 14:01: IVP, [place] 00 Q5Min, Dosing Weight 97.273, kg, PRN Elevated BP, Start date: 08/29/20 9:01:00 CDT, Duration: 5 doses or times, Stop date: Limited # of times Acetaminoph 2020-0 No 1,000 mg, M emoria en 08-29 Route: PO, l 14:01: Drug form: [place] 00 TAB, ONCE, Dosing Weight 97.273, kg, [...] oria ne 08-29 Route: l 14:01: IVP, [place] 00 Q5Min, Dosing Weight 97.273, kg, PRN Pain Score 7-10, Start date: 08/29/20 9:01:00 CDT, Duration: 4 doses or times, Stop date: Limited # of times Flumazenil 2020-0 No 0.2 mg, Caesar lisa 08-29 Route: l 14:01: IVP, PRN, [place] 00 Dosing Weight 97.273, kg, PRN Benzodiaze [...] Memori a 08-29 Route: l 14:01: IVP, [place] 00 Q5Min, Dosing Weight 97.273, kg, PRN Elevated BP, Start date: 08/29/20 9:01:00 CDT, Duration: 5 doses or times, Stop date: Limited # of times Acetaminoph 1-0 No 1,000 mg, M emoria en 08-29 Route: PO, l 14:01: Drug form: [place] 00 TAB, ONCE, Dosing Weight 97.273, kg, [...] oria ne 08-29 Route: l 14:01: IVP, [place] 00 Q5Min, Dosing Weight 97.273, kg, PRN Pain Score 7-10, Start date: 08/29/20 9:01:00 CDT, Duration: 4 doses or times, Stop date: Limited # of times Flumazenil 1-0 No 0.2 mg, Caesar lisa 08-29 Route: l 14:01: IVP, PRN, [place] Dosing Weight 97.273, kg, PRN Benzodiaze pine Reversal, Initial dose, Start date: 08/29/20 9:01:00 CDT, Duration: 30 day, Stop date: 09/28/20 9:00:00 CDT Naloxone 1-0 No 0.4 mg, Memori a 08-29 Route: l 14:01: IVP, [place] 00 Q2MIN, Dosing Weight 97.273, kg, PRN [...] Memori a 08-29 Route: l 14:01: IVP, [place] 00 Q5Min, Dosing Weight 97.273, kg, PRN Elevated BP, Start date: 08/29/20 9:01:00 CDT, Duration: 5 doses or times, Stop date: Limited # of times Acetaminoph 1-0 No 1,000 mg, M emoria en 08-29 Route: PO, l 14:01: Drug form: [place] 00 TAB, ONCE, Dosing Weight 97.273, kg, [...] lisa 08-29 Route: l 14:01: IVP, PRN, [place] 00 Dosing Weight 97.273, kg, PRN Benzodiaze [...] Memori a 08-29 Route: l 14:01: IVP, [place] 00 Q5Min, Dosing Weight 97.273, kg, PRN [...] oria ne 08-29 Route: l 14:01: IVP, [place] 00 Q5Min, Dosing Weight 97.273, kg, PRN Pain Score 7-10, Start date: 08/29/20 9:01:00 CDT, Duration: 4 doses or times, Stop date: Limited # of times Labetalol 1-0 No 10 mg, Memori a 08-29 Route: l 14:01: IVP, [place] 00 Q5Min, Dosing Weight 97.273, kg, PRN [...] lisa 08-29 Route: l 14:01: IVP, PRN, [place] 00 Dosing Weight 97.273, kg, PRN Benzodiaze [...] lisa 08-29 Route: l 14:01: IVP, PRN, [place] 00 Dosing Weight 97.273, kg, PRN Benzodiaze [...] 08-29 Route: PO, l 14:01: Drug form: [place] 00 TAB, ONCE, Dosing Weight 97.273, kg, [...] lisa 08-29 Route: l 14:01: IVP, PRN, [place] 00 Dosing Weight 97.273, kg, PRN Benzodiaze pine Reversal, Initial dose, Start date: 08/29/20 9:01:00 CDT, Duration: 30 day, Stop date: 09/28/20 9:00:00 CDT Naloxone 1-0 No 0.4 mg, Memori a 08-29 Route: l 14:01: IVP, [place] 00 Q2MIN, Dosing Weight 97.273, kg, PRN [...] Memori a 08-29 Route: l 14:01: IVP, [place] 00 Q5Min, Dosing Weight 97.273, kg, PRN [...] oria ne 08-29 Route: l 14:01: IVP, [place] 00 Q5Min, Dosing Weight 97.273, kg, PRN Pain Score 7-10, Start date: 08/29/20 9:01:00 CDT, Duration: 4 doses or times, Stop date: Limited # of times Flumazenil 2020-0 No 0.2 mg, Caesar lisa 08-29 Route: l 14:01: IVP, PRN, [place] 00 Dosing Weight 97.273, kg, PRN Benzodiaze [...] ONCE, Stop date: 08/29/20 8:42:00 CDT fentaNYL 2020- [...] Drug form: l 10 13:15: INJ, Start [place] date: 08/29/20 8:15:00 CDT, Stop date: 08/29/20 9:15:00 CDT norepinephr 0 No Route: IV, Memoria ine (ANES) 08-29 Drug form: l 10 13:15: INJ, Start Marty date: 08/29/20 8:15:00 CDT, Stop date: 08/29/20 9:15:00 CDT norepinephr 0 No Route: IV, Memoria ine (ANES) 08-29 Drug form: l 10 13:15: INJ, Start Marty microgram 00 date: 08/29/20 8:15:00 CDT, Stop date: 08/29/20 9:15:00 CDT norepinephr 2020-0 No Route: IV, Memoria ine (ANES) 08-29 Drug form: l 10 13:15: INJ, Start [place] microgram date: 08/29/20 8:15:00 CDT, Stop date: 08/29/20 9:15:00 CDT norepinephr 2020-0 No Route: IV, Memoria ine (ANES) 08-29 Drug form: l 10 13:15: INJ, Start [place] microgram date: 08/29/20 8:15:00 CDT, Stop date: 08/29/20 9:15:00 CDT norepinephr 2020-0 No Route: IV, Memoria ine (ANES) 08-29 Drug form: l 10 13:15: INJ, Start [place] microgram date: 08/29/20 8:15:00 CDT, Stop date: 08/29/20 9:15:00 CDT norepinephr 2020-0 No Route: IV, Memoria ine (ANES) 08-29 Drug form: l 10 13:15: INJ, Start Marty microgram date: 08/29/20 8:15:00 CDT, Stop date: 08/29/20 9:15:00 CDT Sodium 2020-0 No Route: IV, Memor ia Chloride 4-09 Total l 0.9% IV 12:30: Volume: Marty (ANES) 1000 1,000, mL Start date: 08/29/20 7:30:00 CDT, Stop date: 08/29/20 8:30:00 CDT Sodium 1-0 No Route: IV, Memor ia Chloride 4-09 Total l 0.9% IV 12:30: Volume: [place] (ANES) 1000 00 1,000, mL Start date: [...] PO, l Hydrochlori 11:42: Q24H, # 30 [place] de 150 MG 00 tab, 0 Extended Refill(s) Release Tablet 24 HR Yes 150 mg = 1 Memori a Bupropion 4-09 tab, PO, l Hydrochlori 11:42: Q24H, # 30 [place] de 150 MG 00 tab, 0 Extended [...] PO, l Hydrochlori 11:42: Q24H, # 30 [place] de 150 MG 00 tab, 0 Extended Refill(s) Release Tablet 24 HR Yes 150 mg = 1 Memori a Bupropion 08-29 tab, PO, l Hydrochlori 11:42: Q24H, # 30 [place] de 150 MG 00 tab, 0 Extended Refill(s) Release Tablet apixaban 5 2020-0 Yes 5 mg, PO, Me moria MG Oral - Q12H, tab, l Tablet 11:41: 0 [place] [Eliquis] 00 Refill(s), For Atrial Fibrilatio n apixaban 5 2020-0 Yes 5 mg, PO, Me moria MG Oral 08-29 Q12H, tab, l Tablet 11:41: 0 [place] [Eliquis] 00 Refill(s), For Atrial Fibrilatio n apixaban 5 2020-0 Yes 5 mg, PO, Me moria MG Oral - Q12H, tab, l Tablet 11:41: 0 [place] [Eliquis] 00 Refill(s), For Atrial Fibrilatio n apixaban 2020-0 Yes 5 mg, PO, Me moria MG Oral 08-29 Q12H, tab, l Tablet 11:41: 0 [place] [Eliquis] 00 Refill(s), For Atrial Fibrilatio n [...] 4- Q12H, tab, l Tablet 11:41: 0 [place] [Eliquis] 00 Refill(s), For Atrial Fibrilatio n [...] tab, PO, l tablet 11:38: Daily, # [place] 00 90 tab, 3 Refill(s) AMIODarone 2020-0 Yes 200 mg = 1 M emoria 200 mg oral 4-09 tab, PO, l tablet 11:38: Daily, # [place] 00 90 tab, 3 Refill(s) AMIODarone 2020-0 Yes 200 mg = 1 M emoria 200 mg oral 4-09 tab, PO, l tablet 11:38: Daily, # [place] 00 90 tab, 3 Refill(s) AMIODarone 2020-0 [...] [facility] daily. l DESCOVY 2017- Yes 1{tbl} QD Take 1 [facility] 200-25 mg 3-[address] tablet 00:[facility] 00 daily. l DESCOVY 2017- Yes 1{tbl} QD Take 1 [facility] 200-25 mg 3-[address] tablet 00:[facility] 00 daily. l DESCOVY 2017 Yes 1{tbl} QD Take 1 [facility] 200-25 mg 3-[address] tablet 00:[facility] 00 daily. mabel DESCOVY 2016-0 Yes 1{tbl} QD Take 1 [facility] 200-25 mg 3-[address] tablet 00:[facility]: [facility] 00 daily. l DESCOVY 2016-0 Yes 1{tbl} QD Take 1 [facility] 200-25 mg 3-[address] tablet 00:[facility]: [facility] 00 daily. l ISENTRESS 2016-0 Yes 400mg Q.5D Take 400 [facility] 400 mg 3-[address] tablet 00:00: [facility] 00 (two) l times a day. ISENTRESS 0 Yes 400mg Q.5D Take 400 [facility] 400 mg 3-[address] tablet 00:00: [facility] 00 (two) l times a day. ISENTRESS Yes 400mg Q.5D Take 400 [facility] 400 mg 3-[address] tablet 00:00: [facility] 00 (two) l times a day. ISENTRESS 0 Yes 400mg Q.5D Take 400 [facility] 400 mg 3-[address] tablet 00:00: [facility] 00 (two) l times a day. ISENTRESS 0 Yes 400mg Q.5D Take 400 [facility] 400 mg 3-[address] tablet 00:00: [facility] 00 (two) l times a day. ISENTRESS 0 Yes 400mg Q.5D Take 400 [facility] 400 mg 3-[address] tablet 00:00: [facility] 00 (two) l times a day. Immunizations Ordered Filled Immunization Date Status Comments [facility] e Immunization Name Name Inofile COVID-19 2020-07-23 Completed [facility] MRNA VACCINATION 00:00:00 [facility] PFIZER COVID-19 2020-07-23 Completed [facility] MRNA VACCINATION 00:00:00 [facility] PFIZER COVID-19 2020-07-23 Completed [facility] MRNA VACCINATION 00:00:00 [facility] PFIZER COVID-19 2020-07-23 Completed [facility] MRNA VACCINATION 00:00:00 [facility] PFIZER COVID-19 2020-07-23 Completed [facility] MRNA VACCINATION 00:00:00 [facility] Inofile COVID-19 2020-07-23 Completed [facility] MRNA VACCINATION 00:00:00 [facility] PFIZER COVID-19 2020-07-02 Completed [facility] MRNA VACCINATION 00:00:00 [facility] PFIZER COVID-19 2020-07-02 Completed [facility] MRNA VACCINATION 00:00:00 [facility] PFIZER COVID-19 2020-07-02 Completed [facility] MRNA VACCINATION 00:00:00 [facility] PFIZER COVID-19 2020-07-02 Completed [facility] MRNA VACCINATION 00:00:00 [facility] PFIZER COVID-19 2020-07-02 Completed [facility] MRNA VACCINATION 00:00:00 [facility] PFIZER COVID-19 2020-07-02 Completed [facility] MRNA VACCINATION 00:00:00 [facility] Influenza Virus 2017-03-08 Completed [facility]it [facility] Vaccine 00:00:00 [facility] Influenza Virus 2017-03-08 Completed [facility]it [facility] of Vaccine 00:00:00 [facility] Influenza Virus 2017-03-08 Completed Universit y of Vaccine 00:00:00 [facility] Influenza Virus 2017-03-08 Completed [facility]it y of Vaccine 00:00:00 [facility] Influenza Virus 2017-03-08 Completed Universit y of Vaccine 00:00:00 [facility] Influenza Virus 2014-01-30 Completed [facility]it y of Vaccine (3+ yrs) 00:00[facility] Pneumococcal 13 2014-01-30 Completed Universit y of Conjugate, PCV13 00:00:00 [facility] dical (Prevnar 13) Branch Influenza Virus 2014-01-30 Completed Universit y of Vaccine (3+ yrs) 00:00:00 [facility] Branch Pneumococcal 13 2014-01-30 Completed Universit y of Conjugate, PCV13 00:00:00 [facility] dical (Prevnar 13) Branch Influenza Virus 2014-01-30 Completed Universit y of Vaccine (3+ yrs) 00:00:00 [facility] Pneumococcal 13 2014-01-30 Completed Universit y of Conjugate, PCV13 00:00:00 [facility] dical (Prevnar 13) Branch Influenza Virus 2014-01-30 Completed Universit y of Vaccine (3+ yrs) 00:00:00 [facility] Pneumococcal 13 2014-01-30 Completed Universit y of Conjugate, PCV13 00:00:00 [facility] dical (Prevnar 13) Branch Influenza Virus 2014-01-30 Completed Universit y of Vaccine (3+ yrs) 00:00:00 [facility] dical Branch Pneumococcal 13 2014-01-30 Completed Universit y of Conjugate, PCV13 00:00:00 [facility] dical (Prevnar 13) Branch Pneumococcal 2012-02-16 Completed University o f Polysaccharide, 00:00:00 [facility] PPSV23 (PNEUMOVAX) Branch Influenza Virus 2012-02-16 Completed Universit y of Vaccine 00:00:00 [facility] PPD (TB) 2012-02-16 Completed University of 00:00:00 [facility] Pneumococcal 2012-02-16 Completed University o f Polysaccharide, 00:00:00 [place] [facility] PPSV23 (PNEUMOVAX) Branch Influenza Virus 2012-02-16 Completed Universit y of Vaccine 00:00:00 [facility] PPD (TB) 2012-02-16 Completed University of 00:00:00 [facility] Pneumococcal 2012-02-16 Completed University o f Polysaccharide, 00:00:00 [place] [facility] PPSV23 (PNEUMOVAX) Branch Influenza Virus 2012-02-16 Completed Universit y of Vaccine 00:00:00 [facility] PPD (TB) 2012-02-16 Completed University of 00:00:00 [facility] Pneumococcal 2012-02-16 Completed University o f Polysaccharide, 00:00:00 [place] [facility] PPSV23 (PNEUMOVAX) Branch Influenza Virus 2012-02-16 Completed Universit y of Vaccine 00:00:00 [facility] PPD (TB) 2012-02-16 Completed University of 00:00:00 [facility] Pneumococcal 2012-02-16 Completed University o f Polysaccharide, 00:00:00 [place] [facility] PPSV23 (PNEUMOVAX) Branch Influenza Virus 2012-02-16 Completed Universit y of Vaccine 00:00:00 [facility] PPD (TB) 2012-02-16 Completed University of 00:00:00 [facility] Hep B, Adol or Pedi 2011-09-01 Completed Unive rsity of Dosage 00:00:00 [facility] Hep B, Adol or Pedi 2011-09-01 Completed Unive rsity of Dosage 00:00:00 [facility] Hep B, Adol or Pedi 2011-09-01 Completed Unive rsity of Dosage 00:00:00 [facility] Hep B, Adol or Pedi 2011-09-01 Completed Unive rsity of Dosage 00:00:00 [facility] Hep B, Adol or Pedi 2011-09-01 Completed Unive rsity of Dosage 00:00:00 [facility] Hep B, Adol or Pedi 2011-03-17 Completed Unive rsity of Dosage 00:00:00 [facility] Hep B, Adol or Pedi 2011-03-17 Completed Unive rsity of Dosage 00:00:00 [facility] Hep B, Adol or Pedi 2011-03-17 Completed Unive rsity of Dosage 00:00:00 [facility] Hep B, Adol or Pedi 2011-03-17 Completed Unive rsity of Dosage 00:00:00 [facility] Hep B, Adol or Pedi 2011-03-17 Completed Unive rsity of Dosage 00:00:00 [facility] Influenza Virus 2011-02-10 Completed Universit y of Vaccine 00:00:00 [facility] Hep B, Adol or Pedi 2011-02-10 Completed Unive rsity of Dosage 00:00:00 [facility] Influenza Virus 2011-02-10 Completed Universit y of Vaccine 00:00:00 [facility] Hep B, Adol or Pedi 2011-02-10 Completed Unive rsity of Dosage 00:00:00 [facility] Influenza Virus 2011-02-10 Completed Universit y of Vaccine 00:00:00 [facility] Hep B, Adol or Pedi 2011-02-10 Completed Unive rsity of Dosage 00:00:00 [facility] Influenza Virus 2011-02-10 Completed Universit y of Vaccine 00:00:00 [facility] Hep B, Adol or Pedi 2011-02-10 Completed Unive rsity of Dosage 00:00:00 [facility] Influenza Virus 2011-02-10 Completed Universit y of Vaccine 00:00:00 [facility] Hep B, Adol or Pedi 2011-02-10 Completed Unive rsity of Dosage 00:00:00 [facility] PPD (TB) 2010-11-18 Completed University of 00:00:00 [facility] TDAP (ADACEL) 2010-11-18 Completed University of VACCINE 00:00:00 [facility] PPD (TB) 2010-11-18 Completed University of 00:00:00 [facility] TDAP (ADACEL) 2010-11-18 Completed University of VACCINE 00:00:00 [facility] PPD (TB) 2010-11-18 Completed University of 00:00:00 [facility] TDAP (ADACEL) 2010-11-18 Completed University of VACCINE 00:00:00 [facility] PPD (TB) 2010-11-18 Completed University of 00:00:00 [facility] TDAP (ADACEL) 2010-11-18 Completed University of VACCINE 00:00:00 [facility] PPD (TB) 2010-11-18 Completed University of 00:00:00 [facility] TDAP (ADACEL) 2010-11-18 Completed University of VACCINE 00:00:00 [facility] HEPATITIS A 2004-03-02 Completed University of 00:00:00 [facility] HEPATITIS A 2004-03-02 Completed University of 00:00:00 [facility] HEPATITIS A 2004-03-02 Completed University of 00:00:00 [facility] HEPATITIS A 2004-03-02 Completed University of 00:00:00 [facility] HEPATITIS A 2004-03-02 Completed University of 00:00:00 [facility] HEPATITIS A 2003-08-01 Completed University of 00:00:00 [facility] HEPATITIS A 2003-08-01 Completed University of 00:00:00 [facility] HEPATITIS A 2003-08-01 Completed University of 00:00:00 [facility] HEPATITIS A 2003-08-01 Completed University of 00:00:00 [facility] HEPATITIS A 2003-08-01 Completed University of 00:00:00 [facility] Pneumococcal 2001-10-04 Completed University o f Polysaccharide, 00:00:00 [place] [facility] PPSV23 (PNEUMOVAX) Branch PPD (TB) 2001-10-04 Completed University of 00:00:00 [facility] Pneumococcal 2001-10-04 Completed University o f Polysaccharide, 00:00:00 [place] [facility] PPSV23 (PNEUMOVAX) Branch PPD (TB) 2001-10-04 Completed University of 00:00:00 [facility] Pneumococcal 2001-10-04 Completed University o f Polysaccharide, 00:00:00 [place] [facility] PPSV23 (PNEUMOVAX) Branch PPD (TB) 2001-10-04 Completed University of 00:00:00 [facility] Pneumococcal 2001-10-04 Completed University o f Polysaccharide, 00:00:00 [place] [facility] PPSV23 (PNEUMOVAX) Branch PPD (TB) 2001-10-04 Completed University of 00:00:00 [facility] Pneumococcal 2001-10-04 Completed [facility], 00:00:00 [place] [facility] PPSV23 (PNEUMOVAX) Branch PPD (TB) 2001-10-04 Completed University of 00:00:00 [facility] Vital Signs Vital Name Observation Time Observation Value Comments Source Systolic blood 2021-12-13 06:39:53 170 mm[Hg] Univer sity of pressure [facility] Diastolic blood 2021-12-13 06:39:53 96 mm[Hg] Unive rsity of pressure [facility] Heart rate 2021-12-13 06:39:53 60 /min Universi ty of [facility] Respiratory rate 2021-12-13 06:39:53 18 /min [facility] in 2021-12-13 06:39:53 98 /min [facility] Arterial blood by [facility] Pulse oximetry Branch Body temperature 2021-12-13 04:57:00 36.56 Amina Univ ersity of [facility] Body height 2021-12-13 04:57:00 162.6 cm Universi ty of [facility] Body weight 2021-12-13 04:57:00 90.719 kg Universi ty of [facility] BMI 2021-12-13 04:57:00 34.33 kg/m2 Universi ty [facility] Systolic blood 2021-08-21 13:13:00 191 mm[Hg] Univer sity of pressure [facility] Diastolic blood 2021-08-21 13:13:00 99 mm[Hg] Unive rsity of pressure [facility] Heart rate 2021-08-21 13:13:00 52 /min Universi ty of [facility] Body temperature 2021-08-21 13:11:00 36.5 Amina Univ ersity of [facility] Respiratory rate 2021-08-21 13:11:00 16 /min Univ ersity of [facility] Body height 2021-08-21 13:11:00 162.6 cm Universi ty of [facility] Body weight 2021-08-21 13:11:00 93.759 kg Universi ty of [facility] BMI 2021-08-21 13:11:00 35.48 kg/m2 [facility] Oxygen saturation in 2021-08-21 13:11:00 95 /min University Arterial blood by [facility] Pulse oximetry Branch Systolic blood 2021-07-14 15:18:00 142 mm[facility]Hg] [facility] Diastolic blood 2021-07-14 15:18:00 76 mm[facility]Hg] [facility] Heart rate 2021-07-14 15:18:00 61 [facility] Body height 2021-07-14 15:18:00 [facility] 2021-07-14 15:18:00 [facility]802 [facility] BMI 2021-07-14 15:18:00 35.87 kg/m2 [facility] Systolic blood 2020-12-08 15:48:00 125 mm[Hg] [facility] pressure Diastolic blood 2020-12-08 15:48:00 76 mm[Hg] [facility] pressure Heart rate 2020-12-08 15:48:00 64 /min [facility] Body temperature 2020-12-08 15:48:00 36.61 Amina [facility] Respiratory rate 2020-12-08 15:48:00 17 /min [facility] Body height 2020-12-08 15:48:00 162.6 cm [facility] Body weight 2020-12-08 15:48:00 98.884 kg [facility] BMI 2020-12-08 15:48:00 37.42 kg/m2 [facility] Oxygen saturation in 2020-12-08 15:48:00 97 /min [facility] Arterial blood by Pulse oximetry Respitory Rate 2020-08-30 13:00:00 Memori al [place] Systolic (mm Hg) 2020-08-30 13:00:00 Caesar rial [place] Diastolic (mm Hg) 2020-08-30 13:00:00 Mem orial [place] Systolic (mm Hg) 2020-08-30 11:00:00 Caesar rial [place] Diastolic (mm Hg) 2020-08-30 11:00:00 Mem orial [place] Temperature Oral (F) 2020-08-30 11:00:00 98.4 F [facility] Respitory Rate 2020-08-30 11:00:00 Memraymond andre [place] Respitory Rate 2020-08-30 10:00:00 Memori al [place] Systolic (mm Hg) 2020-08-30 10:00:00 Caesar lisal [place] Diastolic (mm Hg) 2020-08-30 10:00:00 Mem orial Marty Temperature Oral (F) 2020-08-30 00:00:00 96.9 F [facility] [place] Temperature Oral (F) 2020-08-29 11:26:00 97.6 F [facility] [place] Height 2020-08-29 10:30:00 162.56 cm [facility] [place] Weight 2020-08-29 10:30:00 Claude Trujilloann BMI Calculated 2020-08-29 10:30:00 Darien Fernandezann Procedures Procedure Date / Time Performing Clinician Source Performed MEDICATION CORRESPONDENCE 2022-01-06 05:01:00 Doctor Unassigned, [facility] Name [facility] MEDICATION CORRESPONDENCE 2021-12-25 05:01:00 Doctor Unassigned, [facility] Name [facility] CT CERVICAL SPINE WO 2021-12-13 05:48:16 Bill Guo [facility] CONTRAST [facility] CT HEAD WO CONTRAST 2021-12-13 05:48:16 Bill Guo [facility] CT LUMBAR SPINE WO 2021-12-13 05:48:16 Bill Guo [facility] CONTRAST [facility] CT THORACIC SPINE WO 2021-12-13 05:48:16 Bill Guo [facility] CONTRAST [facility] ECG 12-LEAD 2021-07-14 15:14:00 Elan Lira [facility] [id number] 2021-06-17 00:00:00 RASSA [facility] GASTROINTESTINAL PANEL 2020-12-08 22:21:00 Eliseo Arce [facility] XR ABDOMEN 1 VW 2020-12-08 18:06:32 Eliseo Arce spital OR [place] < 1 HOUR 2020-09-05 22:39:00 Eliseo Arce [facility] SURGICAL PATHOLOGY REQUEST 2020-09-05 21:54:00 Eliseo Arce [facility] XR CHEST 1 VW PORTABLE 2020-09-05 19:55:00 Eliseo Arce [facility] DISCHARGE PATIENT 2020-09-05 17:27:55 Lucas Harris [facility] [place] AN ELECTIVE 2020-09-05 16:47:23 Kirit Flood [facility] ENDOTRACHEAL AIRWAY EGD, INTRAOPERATIVE 2020-09-05 16:27[facility] 2020-09-05 15:04:00 Sarai Maharaj [facility] TIME (PTT) M. PROTHROMBIN TIME WITH INR 2020-09-05 15:04:00 Mindy Maharaj [facility] M. Plan of Care Planned Activity Planned Date Details Comments Source Future Scheduled 2022-01-29 SHINGLES VACCINES (1 [facility] Test 14:07:20 of 2) [code = SHINGLES VACCINES (1 of 2)] Future Scheduled 2022-01-29 BREAST CANCER [facility] Test 14:07:20 SCREENING [code = BREAST CANCER SCREENING] Future Scheduled 2022-01-29 COLONOSCOPY SCREENING [facility] Test 14:07:20 [code = COLONOSCOPY SCREENING] Future Scheduled 2022-01-29 HEPATITIS B VACCINES [facility] Test 14:07:20 (1 of 3 - Risk 3-dose series) [code = HEPATITIS B VACCINES (1 of 3 - Risk 3-dose series)] Future Scheduled 2022-01-29 COVID-19 VACCINE (3 - [facility] Test 14:07:20 Booster for Pfizer series) [code = COVID-19 VACCINE (3 - Booster for Pfizer series)] Future Scheduled 2022-01-29 65+ PNEUMOCOCCAL [facility] Test 14:07:20 VACCINE (4 - PPSV23 or PCV20) [code = 65+ PNEUMOCOCCAL VACCINE (4 - PPSV23 or PCV20)] Future Scheduled 2022-01-29 INFLUENZA VACCINE [facility] Test 14:07:20 [code = INFLUENZA VACCINE] Future Scheduled 2022-01-29 SHINGLES VACCINES (1 [facility] Test 14:07:20 of 2) [code = SHINGLES VACCINES (1 of 2)] Future Scheduled 2022-01-29 BREAST CANCER [facility] Test 14:07:20 SCREENING [code = BREAST CANCER SCREENING] Future Scheduled 2022-01-29 COLONOSCOPY SCREENING [facility] Test 14:07:20 [code = COLONOSCOPY SCREENING] Future Scheduled 2022-01-29 HEPATITIS B VACCINES [facility] Test 14:07:20 (1 of 3 - Risk 3-dose series) [code = HEPATITIS B VACCINES (1 of 3 - Risk 3-dose series)] Future Scheduled 2022-01-29 COVID-19 VACCINE (3 - [facility] Test 14:07:20 Booster for Pfizer series) [code = COVID-19 VACCINE (3 - Booster for Pfizer series)] Future Scheduled 2022-01-29 65+ [facility] 14:07:20 VACCINE (4 - PPSV23 or PCV20) [code = 65+ PNEUMOCOCCAL VACCINE (4 - PPSV23 or PCV20)] Future Scheduled 2022-01-29 INFLUENZA VACCINE [facility] Test 14:07:20 [code = INFLUENZA VACCINE] Future Scheduled 2022-01-20 SHINGLES VACCINES (1 [facility] Test 06:12:34 of 2) [code = SHINGLES VACCINES (1 of 2)] Future Scheduled 2022-01-20 Screening for [facility] Test 06:12:34 malignant neoplasm of cervix (procedure) [code = 402701082] Future Scheduled 2022-01-20 BREAST CANCER [facility] Test 06:12:34 SCREENING [code = BREAST CANCER SCREENING] Future Scheduled 2022-01-20 COLONOSCOPY SCREENING [facility] Test 06:12:34 [code = COLONOSCOPY SCREENING] Future Scheduled 2022-01-20 HEPATITIS B VACCINES [facility] Test 06:12:34 (1 of 3 - Risk 3-dose series) [code = HEPATITIS B VACCINES (1 of 3 - Risk 3-dose series)] Future Scheduled 2022-01-20 COVID-19 VACCINE (3 - [facility] Test 06:12:34 Booster for Pfizer series) [code = COVID-19 VACCINE (3 - Booster for Pfizer series)] Future Scheduled 2022-01-20 65+ [facility] 06:12:34 VACCINE (4 - PPSV23 or PCV20) [code = 65+ PNEUMOCOCCAL VACCINE (4 - PPSV23 or PCV20)] Future Scheduled 2022-01-20 INFLUENZA VACCINE Method [facility] Test 06:12:34 [code = INFLUENZA VACCINE] Future Scheduled 2022-01-16 SHINGLES VACCINES (1 [facility] Test 12:09:25 of 2) [code = SHINGLES VACCINES (1 of 2)] Future Scheduled 2022-01-16 Screening for [facility] Test 12:09:25 malignant neoplasm of cervix (procedure) [code = 188340085] Future Scheduled 2022-01-16 BREAST CANCER [facility] Test 12:09:25 SCREENING [code = BREAST CANCER SCREENING] Future Scheduled 2022-01-16 COLONOSCOPY SCREENING [facility] Test 12:09:25 [code = COLONOSCOPY SCREENING] Future Scheduled 2022-01-16 HEPATITIS B VACCINES [facility] Test 12:09:25 (1 of 3 - Risk 3-dose series) [code = HEPATITIS B VACCINES (1 of 3 - Risk 3-dose series)] Future Scheduled 2022-01-16 COVID-19 VACCINE (3 - [facility] Test 12:09:25 Booster for Pfizer series) [code = COVID-19 VACCINE (3 - Booster for Pfizer series)] Future Scheduled 2022-01-16 65+ PNEUMOCOCCAL [facility] Test 12:09:25 VACCINE (4 - PPSV23 or PCV20) [code = 65+ PNEUMOCOCCAL VACCINE (4 - PPSV23 or PCV20)] Future Scheduled 2022-01-16 INFLUENZA VACCINE Method [facility] Test 12:09:25 [code = INFLUENZA VACCINE] Future Scheduled 2022-01-14 SHINGLES VACCINES (1 [facility] Test 04:11:46 of 2) [code = SHINGLES VACCINES (1 of 2)] Future Scheduled 2022-01-14 Screening for [facility] Test 04:11:46 malignant neoplasm of cervix (procedure) [code = 102617038] Future Scheduled 2022-01-14 BREAST CANCER [facility] Test 04:11:46 SCREENING [code = BREAST CANCER SCREENING] Future Scheduled 2022-01-14 COLONOSCOPY SCREENING [facility] Test 04:11:46 [code = COLONOSCOPY SCREENING] Future Scheduled 2022-01-14 HEPATITIS B VACCINES [facility] Test 04:11:46 (1 of 3 - Risk 3-dose series) [code = HEPATITIS B VACCINES (1 of 3 - Risk 3-dose series)] Future Scheduled 2022-01-14 COVID-19 VACCINE (3 - [facility] Test 04:11:46 Booster for Pfizer series) [code = COVID-19 VACCINE (3 - Booster for Pfizer series)] Future Scheduled 2022-01-14 65+ PNEUMOCOCCAL [facility] Test 04:11:46 VACCINE (4 - PPSV23 or PCV20) [code = 65+ PNEUMOCOCCAL VACCINE (4 - PPSV23 or PCV20)] Future Scheduled 2022-01-14 INFLUENZA VACCINE Method [facility] Test 04:11:46 [code = INFLUENZA VACCINE] Future Scheduled 2021-08-26 Screening for [facility] Test 13:02:23 malignant neoplasm of cervix (procedure) [code = 631991933] Future Scheduled 2021-08-26 BREAST CANCER [facility] Test 13:02:23 SCREENING [code = BREAST CANCER SCREENING] Future Scheduled 2021-08-26 COLONOSCOPY SCREENING [facility] Test 13:02:23 [code = COLONOSCOPY SCREENING] Future Scheduled 2021-08-26 Screening for [facility] Test 13:02:23 malignant neoplasm of lung (procedure) [code = 659274628] Future Scheduled 2021-08-26 SHINGLES VACCINES (#1) M [facility] Test 13:02:23 [code = SHINGLES VACCINES (#1)] Future Scheduled 2021-08-26 COVID-19 VACCINE (3 - [facility] Test 13:02:23 Pfizer risk 4-dose series) [code = COVID-19 VACCINE (3 - Pfizer risk 4-dose series)] Future Scheduled 2021-08-26 65+ PNEUMOCOCCAL [facility] Test 13:02:23 VACCINE (4 of 4 - PPSV23) [code = 65+ PNEUMOCOCCAL VACCINE (4 of 4 - PPSV23)] Future Scheduled 2021-08-26 INFLUENZA VACCINE Method [facility] Test 13:02:23 [code = INFLUENZA VACCINE] Encounters Start End Encounter Admission Attending Care Care Encounter Source Date/Time Date/Time Type Type Clinicians Facility Department ID 2021-11-16 Outpatient [facility] [id number] [place] 10:32:47 [id number] [facility] 2021-07-14 [facility] [id number] [place] 09:33:51 [facility] 2022-02-26 2022-02-26 Outpatient Marika CARDENAS [facility] [id number] Univers 08:30:00 08:30:00 SANTIAGO [id number] ity [facility] 2022-02-26 2022-02-26 Outpatient R [facility] [id number] Univers 08:30:00 08:30:00 SANTIAGO itcharlie [facility] 2022-01-06 2022-01-06 Orders Doctor FERMIN 1.2.840.114 [id number] Univers 00:00:00 00:00:00 Only Unassigned, JACKELINE 350.1.13.10 ity of [facility] 4.2.7.2.686 Yomi as [phone] [facility] [address] [place] 2021-12-25 2021-12-25 Orders Doctor FERMIN 1.2.840.114 [id number] Univers 00:00:00 00:00:00 Only Unassigned, JACKELINE 350.1.13.10 ity of [facility] 4.2.7.2.686 Yomi as [id number] [facility] [address] [place] 2021-12-12 2021-12-13 Emergency X SARI K [facility] ERT [id number] Univers 23:53:00 01:52:00 ity [facility] 2021-12-12 2021-12-13 Emergency Bill Guo [facility] 1.2.840.114 [id number] Univers 23:53:00 01:52:00 Kiersten BULLOCK 350.1.13.10 i [place] [id number] [facility] [address] 2021-11-20 2021-11-20 Treasury Agent [facility] UNIVERSIT 1.2.840.114 [id number] Univers 09:45:00 10:00:00 Visit Santiago Cardenas [facility] 350.1.13.10 ity of [place] [id number] [facility] [address] 2021-11-20 2021-11-20 Outpatient R [facility] [id number] Univers 09:45:00 09:45:00 SANTIAGO charlie [facility] 2021-11-20 2021-11-20 Outpatient [facility] [id number] Univers 09:45:00 09:45:00 [id number] ity of [facility] 2021-08-21 2021-08-21 Office [place], UNIVERSIT 1.2.009.864 [id number] [facility] 08:30:00 09:00:00 Visit Santiago Rodriguez HEALTH 350.1.13.10 i [facility] 4.2.7.2.686 Richi bach [phone] [address] 2021-08-05 2021-08-05 Inpatient EDUARDO LealCL OUTD [id number] [facility] 05:24:00 05:24:00 Mike 31 [facility] 2021-07-14 2021-07-14 Office Pankaj, UTP 6400 1.2.840.114 13 [id number] [place] 08:45:00 09:34:[address] 350.1.13.58 Health 9.2.7.2.686 [id number] 1 2021-07-09 2021-07-09 Telephone KIMBERLEY Layton 6400 1.2.840.114 [id number] [place] 00:00:00 00:00:[address] 350.1.13.58 Health 9.2.7.2.686 [id number] 1 2021-06-17 2021-06-17 Inpatient EDUARDO LealCL INTE.02 [id number] [facility] 10:56:00 14:36:00 Mike 47 [facility] 2021-04-28 2021-04-28 Telephone Jailyn 1.2.840.1 [id number] 21 [id number] Methodi 00:00:00 00:00:[address] 3.430.2.7 Hospit a .3.526983 l .8 2021-04-28 2021-04-28 Telephone Jailyn 1.2.840.6 [id number] 21 [id number] Methodi 00:00:00 00:00:[address] 3.430.2.7 Hospit a .3.500947 l .8 2021-03-31 2021-03-31 Orders Meisenbach, 1.2.840.1 [id number] Methodi 00:00:00 00:00:00 Only Sarai Corbin. 79827.1.1 979 s t 3.430.2.7 Hospit a .3.445963 l .8 2021-03-31 2021-03-31 Orders Meisenbach, 1.2.840.1 [id number] Methodi 00:00:00 00:00:00 Only Sarai Corbin. 90609.1.1 979 s t 3.430.2.7 Hospit a .3.741488 l .8 2021-03-24 2021-03-24 Telephone [facility], 1.2.840.5 [id number] 21 [id number] Methodi 00:00:00 00:00:[address] 3.430.2.7 Hospit a .3.495415 l .8 2021-03-24 2021-03-24 [facility] 1.2.840.8 [id number] Methodi 00:00:00 00:00:[address] 3.430.2.7 Hospit a .3.734694 l .8 2021-01-19 2021-01-19 Telephone Prabhu, 1.2.840.1 [id number] 2100 [id number] Methodi 00:00:00 00:00:[address] 3.430.2.7 Hospit a .3.919426 l .8 2020-12-12 2020-12-12 Office Hematpour, UTP 6400 1.2.840.114 12 [id number] 07:42:02 08:18:[address] 350.1.13.58 9.2.7.2.686 [id number] 1 2020-12-09 2020-12-09 Telephone [facility], 1.2.840.1 [id number] Methodi 00:00:00 00:00:00 Sarai Corbin. 20010.1.1 316 s t 3.430.2.7 Hospit a .3.356704 l .8 2020-12-08 2020-12-08 [facility], 1.2.840.1 [id number] 2100 [id number] Methodi 12:35:54 23:59:00 Encounter Ray [address]6564.1.[address] 3.430.2.7 Hospit a .3.429447 l .8 2020-12-08 2020-12-08 Lab [facility], 1.2.840.1 [id number] 63939 44230 Methodi 17:25:00 17:30:[address] 3.430.2.7 Hospit a .3.585959 l .8 2020-12-08 2020-12-08 Office [facility], 1.2.840.1 [id number] 28558 02201 Methodi 10:30:00 11:39:56 Visit Ray 37582.1.[address] 3.430.2.7 Hospit a .3.616187 l .8 2020-12-08 2020-12-08 Travel 1.2.840.1 1.2.600.827 4858 694106 Methodi 00:00:00 00:00:[address] 3.430.2.7 0.2.7.3.698 Ho spita .3.544941 084.8 l .8 2020-12-02 2020-12-02 Treasury Agent [facility] 1.2.840.114 8 [id number] 10:20:06 10:36:19 Visit HEALTH 350.1.13.10 CLINICS 4.2.7.2.686 [id number] 316 2020-11-25 2020-11-25 Office BeltranRUST 1.2.840.114 [id number] 11:06:30 11:58:14 Visit Robbi Hairston CERTIFIED HYPERBARIC TECHNICIAN 350.1.13.10 [facility] 4.2.7.2.686 MATERNAL [id number] & CHILD [address] [place] [address] 2020-11-25 2020-11-25 [facility] 1.2.113.921 7169 4592 00:00:00 00:00:00 [facility] 350.1.13.10 [facility] 4.2.7.2.686 [id number] 089 2020-11-25 2020-11-25 Telephone Beltran [facility] 1.2.135.457 0366 0821 00:00:00 00:00:00 Robbi Hairston CERTIFIED HYPERBARIC TECHNICIAN 350.1.13.10 [facility] 4.2.7.2.686 MATERNAL [id number] & CHILD [address] [place] [address] 2020-11-14 2020-11-14 Abstract Clark, 1.2.840.1 [id number] 80622 50187 Methodi 00:00:00 00:00:[address] 3.430.2.7 Hospit a .3.894932 l .8 2020-11-14 2020-11-14 Telephone Clark 1.2.840.1 [id number] 2099 [id number] Methodi 00:00:00 00:00:[address] 3.430.2.7 Hospit a .3.808381 l .8 2020-11-07 2020-11-07 Telephone KIMBERLEY Ortiz 6400 1.2.840.114 124 [id number] 00:00:00 00:00:[address] 350.1.13.58 9.2.7.2.686 [id number] 1 2020-10-27 2020-10-27 Telephone Jailyn 1.2.840.8 [id number] Methodi 00:00:00 00:00:[address] 3.430.2.7 Hospit a .3.113649 l .8 2020-10-24 2020-10-24 Telephone Clark 1.2.840.1 [id number] 2099 523106 Methodi 00:00:00 00:00:[address] 3.430.2.7 Hospit a .3.354802 l .8 2020-10-06 2020-10-12 Telemedici [facility], 1.2.840.1 [id number] Methodi 15:30:00 00:08:46 ne Ray 30891.1.[address] 3.430.2.7 Hospit a .3.893776 l .8 2020-09-30 2020-09-30 [facility], 1.2.840.8 [id number] Methodi 00:00:00 00:00:[address] 3.430.2.7 Hospit a .3.422940 l .8 2020-09-21 2020-09-21 Travel 1.2.840.1 1.2.550.042 6669 168549 Methodi 00:00:00 00:00:[address] 3.430.2.7 0.2.7.3.698 spita .3.872818 084.8 l .8 2020-09-06 2020-09-06 [facility] 1.2.840.1 [id number] 42527 72802 Methodi 17:42:30 23:59:[address] 3.430.2.7 Hospit a .3.554329 l .8 2020-09-06 2020-09-06 [facility], 1.2.840.1 [id number] 2100 879277 Methodi 16:50:00 17:41:00 Encounter Ray [address]42.1.[address] 3.430.2.7 Hospit a .3.874515 l .8 2020-09-05 2020-09-05 [facility], 1.2.840.1 [id number] 2099 527383 Methodi 09:17:00 19:45:00 Encounter Ray [address]12.1.[address] 3.430.2.7 Hospit a .3.183063 l .8 2020-09-05 2020-09-05 [facility], 1.2.840.1 [id number] 32675 40361 Methodi 11:30:00 13:15:[address] 3.430.2.7 Hospit a .3.717344 l .8 2020-09-05 2020-09-05 Anesthesia Remigio, 1.2.840.1 [id number] 648 [id number] Methodi 11:27:00 12:20:00 Event Kirit 32939.1.1 243 s t V. 3.430.2.7 Hospit a .3.660055 l .8 2020-09-05 2020-09-05 Travel 1.2.840.1 1.2.999.161 6234 140482 Methodi 00:00:00 00:00:[address] 3.430.2.7 0.2.7.3.698 Ho spita .3.278148 084.8 l .8 2020-09-04 2020-09-04 Telephone Meisenbach, 1.2.840.1 [id number] Methodi 00:00:00 00:00:00 Sarai M. 76437.1.1 762 s t 3.430.2.7 Hospit a .3.151017 l .8 2020-09-02 2020-09-02 Telephone Meisenbach, 1.2.840.4 [id number] Methodi 00:00:00 00:00:00 Sarai M. 14081.1.1 344 s t 3.430.2.7 Hospit a .3.707173 l .8 2020-08-29 2020-08-30 [id number] Memoria 10:20:00 14:10:00 Outpatient r Marty 00 l [facility] 2020-08-29 2020-08-30 Outpatient [facility], [facility] CAR 7500 [facility] 05:20:00 09:10:00 [place] Results Test Description Test Time Test Comments Results Result Comments Source Novel Coronavirus 2019 Inhouse 2021-08-03 18:08:00 Test Item Value Reference Range Interpretation Comme nts Novel Coronavirus 2019 Negative Negative Posit bruno results are indicative of the Inhouse (test code = presenc e epQYUY-JsX-7 RNA, clinical COVNONPUI) correlation wit h patient [...] qualitative detection of nucleic acid s from hbaHBQU-BuO-7 virus and diagn osis of SARS-CoV-2 virusinfection. It is an Emergency Use Authorization ( EUA) testauthorized by the U.S. FDA. BASIC METABOLIC [id number] 09:37:00 Test Item Value Reference Range Interpretation [...] = 9.0 mg/dL 8.0-10.5 N CA) PROTHROMBIN [id number] 09:32:00 Test Item Value Reference Range Interpretation [...] Acute Myocardia l Infarction (to prevent systemic embol ism), Valvular heart disease, Atrial Fibrillation, Bileaflet mecha nical valve in aortic position.2. Mec hanical prosthetic valv es (high risk), 2. 5 - 3.5 Presence of Lup us Anticoagulant o r Antiphospholipi d Antibodies, Pre vention of systemic emb olism - Acute Myocardia l Infarction (to prevent recurrent infar ct). 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 [facility] - XR CHEST 1 [id number] 00:00:00 [facility] 1955 Sex: F FAX: Carmenza Olivera DO [phone] [place]: St: [facility] FAX: Mike Scales MD [phone] FAX: Bahman Chopra [phone] Name: LIO WATTS [facility] : 1955 Age/S: 66/F [address] [place] [address] Unit #: [id number] Loc: [place] [address] Phys: Bahman Chopra [facility] Acct: [id number] Dis Date: Status: ADM IN PHONE #: [phone] Exam Date: 06/17/2021 1320 FAX #: [phone] Reason: WATCHMAN EXAMS: CPT CODE: [id number] XR CHEST 1 V 31173 PROCEDURE INFORMATION: Exam: XR Chest Exam date [...] CC: Carmenza Rahman DO; Mike Lund MD; Loli Chopra Technologist: RT Taylor(R) Trnscrd Date/Time/By: 06/17/2021 (2211) : By:IselaKWL Orig Print D/T: S: 06/17/2021 (4576) PAGE 1 Signed ReportCOVID 19 Asymptomatic IH [...] high or waivedcomplexit y tests. BASIC METABOLIC [id number] 11:37:00 Test Item Value Reference Range Interpretation [...] code = 9.0 mg/dL 8.0-10.5 N CA) [id number] 11:37:00 Test Item Value Reference Range Interpretation Comments PREALBUMIN (test code = PREALB) 24.3 mg/dL 16.0-40.0 N PROTHROMBIN [id number] 11:03:00 Test Item Value Reference Range Interpretation [...] (to prevent recurrent infar ct). CBC W/AUTO [id number] 10:59:00 Test Item Value Reference Range Interpretation [...] 0.0-0.1 N NRBC#) - XR CHEST 2 [id number] 00:00:00 [facility] : 1955 Sex: F FAX: RobinUrmilaBibiana DanielFrancisco Kristen [phone] [place]: St: PRE FAX: Mike Scales MD [phone] Name: LIO WATTS [facility] [place] : 1955 Age/S: 66/F [address] [place] [address] Unit #: [id number] Loc: [place] [address] Phys: Mike Lund MD Acct: [id number] Dis Date: Status: PRE [facility] PHONE #: [phone] Exam Date: 06/16/2021 1120 FAX #: [phone] Reason: PREOP EXAMS: CPT CODE: [id number] XR CHEST 2 V 83220 PROCEDURE INFORMATION: Exam: XR Chest Exam date [...] MD Technologist: RT Andree(R) Trnscrd Date/Time/By: 06/16/2021 (6424) : By: [email or web address] Orig Print D/T: S: 06/16/2021 (3245) PAGE 1 Signed ReportGastrointestinal [id number] 04:35:05 Test Item Value Reference Interpretation Comments [...] Rotavirus PCR (test Not Detected code = 4489670) Salmonella PCR (test Not Detected code = [...] PCR Not Detected (test code = 7124) [facility] [id number] 19:30:47 Test Item Value Reference Range Interpretation Comments Case number (test [id number] code = 3152445) Surgical pathology See link below for PDF report (test code = Lab Report 2255) Result status (test This is Supplemental code = 1843543) Report for [id number] [facility]2021-04-09 16:31:00 Test Item Value Reference Range Interpretation Comments POC Activated Clotting Time (test code 153 s = POC Activated Clotting Time) [facility]edud[facility]XQAY[facility]VHRO5876[facility]-91 16:31:00 Test Item Value Reference Range Interpretation Comments POC Activated Clotting Time (test code 153 s = POC Activated Clotting Time) [facility] BrookMlddlvxAHPPYUGCGH4553-79-25 16:31:00 Test Item Value Reference Range Interpretation Comments POC Activated Clotting Time (test code 153 s = POC Activated Clotting Time) [facility] BrookAkengcmICYEOMNPHQ4776-99-20 16:31:00 Test Item Value Reference Range Interpretation Comments POC Activated Clotting Time (test code 153 s = POC Activated Clotting Time) [facility] BrookOtfdtjoMDSUKMXSGU2671-32-85 16:31:00 Test Item Value Reference Range Interpretation Comments POC Activated Clotting Time (test code 153 s = POC Activated Clotting Time) [facility] BrookWonkhduZLDWFUDKKF6544-38-27 16:31:00 Test Item Value Reference Range Interpretation Comments POC Activated Clotting Time (test code 153 s = POC Activated Clotting Time) [facility] BrookNekowbrZATKNNQKIH0597-68-29 16:31:00 Test Item Value Reference Range Interpretation Comments POC Activated Clotting Time (test code 153 s = POC Activated Clotting Time) [facility] BrookZekedbnTYDBUBVDWK6733-34-52 14:37:00 Test Item Value Reference Range Interpretation Comments POC Activated Clotting Time (test code 454 s = POC Activated Clotting Time) [facility] BrookIkcutjvEFJRBGWPQG1678-52-07 14:37:00 Test Item Value Reference Range Interpretation Comments POC Activated Clotting Time (test code 454 s = POC Activated Clotting Time) [facility] BrookBrzeqfuFPTYCEIXJA5413-81-34 14:37:00 Test Item Value Reference Range Interpretation Comments POC Activated Clotting Time (test code 454 s = POC Activated Clotting Time) [facility] BrookUoctaacJUPQHRBYQV3435-13-71 14:37:00 Test Item Value Reference Range Interpretation Comments POC Activated Clotting Time (test code 454 s = POC Activated Clotting Time) [facility] BrookTcduhqaMYTTKEJSIB7295-11-52 14:37:00 Test Item Value Reference Range Interpretation Comments POC Activated Clotting Time (test code 454 s = POC Activated Clotting Time) [facility] BrookZuraroxMWSFYTWBCT6328-20-45 14:37:00 Test Item Value Reference Range Interpretation Comments POC Activated Clotting Time (test code 454 s = POC Activated Clotting Time) [facility] BrookQgbfozzPHUYXOUQNV8534-23-49 14:37:00 Test Item Value Reference Range Interpretation Comments POC Activated Clotting Time (test code 454 s = POC Activated Clotting Time) [facility] BrookIcdeiusVLNCVAOHEE2095-02-36 14:13:00 Test Item Value Reference Range Interpretation Comments POC Activated Clotting Time (test code 354 s = POC Activated Clotting Time) [facility] BrookEcnkpknNNJGCCZWEF9632-38-50 14:13:00 Test Item Value Reference Range Interpretation Comments POC Activated Clotting Time (test code 354 s = POC Activated Clotting Time) [facility] BrookZgzlrmzENCTUDRWNX1507-72-88 14:13:00 Test Item Value Reference Range Interpretation Comments POC Activated Clotting Time (test code 354 s = POC Activated Clotting Time) [facility] BrookWxvnsjzRMHCXVDUHA7833-03-78 14:13:00 Test Item Value Reference Range Interpretation Comments POC Activated Clotting Time (test code 354 s = POC Activated Clotting Time) [facility] BrookIgsuajjBVKUIRUZKQ6257-33-01 14:13:00 Test Item Value Reference Range Interpretation Comments POC Activated Clotting Time (test code 354 s = POC Activated Clotting Time) [facility] BrookOatlnplMKYYEEIFCE4267-61-83 14:13:00 Test Item Value Reference Range Interpretation Comments POC Activated Clotting Time (test code 354 s = POC Activated Clotting Time) [facility] BrookIlpyofgJXHQYZDZWV2236-03-48 14:13:00 Test Item Value Reference Range Interpretation Comments POC Activated Clotting Time (test code 354 s = POC Activated Clotting Time) [facility] [id number] 10:37:00Negative (08/29/20 5:37 AM) [facility] AHWMH2559-54-72 10:37:10965Pdnorbvn HermannCHEM PANEL 2020-08-29 10:37:0028[facility]annCHEM [id number] 10:37:001.01[facility]ann[facility] RJAJP5295-46-94 10:37:46604Wccqxoue HermannCHEM FGNNY8010-82-16 10:37:003.8[facility]ann[facility] TTMGK8102-67-80 10:37:26968Urpzidme HermannCHEM IXGKM3081-66-37 10:37:0028[facility]annCHEM KAKLU1163-02-07 10:37:009.8 [facility] JTVNN5320-69-43 10:37:0011.8[facility]annCHEM PANEL 2020-08-29 10:37:0059[facility] HermannCHEM QHFLX5579-66-27 10:37:002.9[facility] JxfqjapZLSNLOWHEA6245-73-72 10:37:006.8[facility] OgbxwckYCMLDTLERC0582-01-90 10:37:004.47[facility] MstgddyWWXNNUZGIU9878-96-53 10:37:0010.6[facility] DPEAJWSTTL7513-46-47 10:37:0034.0[facility] FjmtcbxNAYNERPZZU2909-53-52 10:37:00 76.1[facility] ZxitwqoDMISYYRDKR6406-22-50 10:37:00 Test Item Value Reference Range Interpretation Comments MCH (test code = MCH) 23.8 pg 27.0-31.0 [facility] NrmkzlbSLNDFPHHDS6999-46-87 10:37:0031.3[facility] HermannHEMATOLOGY 2020-08-29 10:37:0018.2[facility] HhmcxelWRQSULWDIK4398-83-73 10:37:23795Tknmpqjw QpiwdsvIXYATSOBCZ3651-24-25 10:37:007.5[facility] GgicxqfQDBDKUCYJH2355-65-58 10:37:00 Test Item Value Reference Range Interpretation Comments PT (test code = PT) 12.8 s 12.0-14.7 [facility] GzvintvANYFEUTUMI1246-67-83 10:37:00 Test Item Value Reference Range Interpretation Comments INR (test code = INR) 0.97 1 0.85-1.17 [facility] UfhhnlzJBSUPAOMMH8014-65-80 10:37:00 Test Item Value Reference Range Interpretation Comments PTT (test code = PTT) 25.0 s 22.9-35.8 [facility] TulvvdgTMDYNJORLX7233-00-86 10:37:0070.5[facility] HermannHEMATOLOGY 2020-08-29 10:37:0018.8[facility] JkpekssGWDJYFBDEM4177-22-88 10:37:009.5[facility] FskmbnnGIRZOGNNQB6617-99-18 10:37:000.9[facility] SilwpniTLFHUJDYTI9397-84-64 10:37:000.3[facility] QqvrqlbLTMMOPRECQ4760-90-64 10:37:004.8[facility] VKZHAVVCWY0333-52-39 10:37:001.3[facility] OzpetacHRNHNSEFGN0603-36-96 10:37:000.6 [facility] SmdpecuQCYZLDHQRR8661-84-96 10:37:000.1[facility]annHEMATOLOGY 2020-08-29 10:37:001+ *ABN*(08/29/20 5:37 AM)[facility] SjkxyiaFHCDNYVOTJ7241-22-06 10:37:00Not Detected (08/29/20 5:37 AM)[facility] HermannBLOOD BANK RESULTS 2020-08-29 10:37:00Negative (08/29/20 5:37 AM)[facility]annCHEM KVKOJ5070-67-64 10:37:40522Vqtcsdhb HermannCHEM BNINT7949-77-15 10:37:0028[facility] HermannCHEM UZPIS9652-18-18 10:37:001.01[facility] HermannCHEM VPSWZ3928-99-25 10:37:90320 [facility]annCHEM EHKYN7593-58-88 10:37:003.8[facility] HermannCHEM PANEL 2020-08-29 10:37:19950Nfcmfmdz [facility]annCHEM VCNDX6444-52-26 10:37:0028[facility] HermannCHEM DWBPX5397-23-24 10:37:009.8[facility] HermannCHEM JEXBZ6778-56-90 10:37:0011.8[facility] HermannCHEM MXXRG1398-69-90 10:37:0059[facility] HermannCHEM DQUXN7049-88-95 10:37:002.9[facility] ZawcphiNPYFJLOFGC7134-94-66 10:37:006.8 [facility] GoozaisMEQDNDQUVT8261-60-78 10:37:004.47[facility] HermannHEMATOLOGY 2020-08-29 10:37:0010.6[facility] PczespjWHQTCDTXEI2739-44-76 10:37:0034.0[facility] NciclydMVJQNKZIGF3037-25-34 10:37:0076.1[facility] VbhdwyvOGBXIMMJTZ7705-21-83 10:37:00 Test Item Value Reference Range Interpretation Comments MCH (test code = MCH) 23.8 pg 27.0-31.0 [facility] LyagqskRVEOKHIEHS7276-87-46 10:37:0031.3[facility] HermannHEMATOLOGY 2020-08-29 10:37:0018.2[facility] KjyrwwaUOPQWUFNJL5328-45-36 10:37:84362Xmygzdit FuyxezbRHNHXCXOTA9795-08-62 10:37:007.5[facility] FsfmutlBMIIYLYYJQ0719-19-66 10:37:00 Test Item Value Reference Range Interpretation Comments PT (test code = PT) 12.8 s 12.0-14.7 [facility] ZnxjmmwMSWWXKTKWL6059-95-65 10:37:00 Test Item Value Reference Range Interpretation Comments INR (test code = INR) 0.97 1 0.85-1.17 [facility] IxqagmlHQYEEVYACG8548-79-97 10:37:00 Test Item Value Reference Range Interpretation Comments PTT (test code = PTT) 25.0 s 22.9-35.8 [facility] GxutfngHPDZSDHSUK4094-28-78 10:37:0070.5[facility] HermannHEMATOLOGY 2020-08-29 10:37:0018.8[facility] GywowjhWJDOTBZXJL7165-13-13 10:37:009.5[facility] NxoermpMOWGLTVNHW5543-67-43 10:37:000.9[facility] BgvurziJTZCWYKDYA4971-13-47 10:37:000.3[facility] JgbrotiORIXMKLLIZ5056-07-72 10:37:004.8[facility] UOZMQGNMCX1073-97-54 10:37:001.3[facility] SuosucsZNFWGZKEPQ3800-81-17 10:37:000.6 [facility] EgcujchMUMELYZLPA2931-84-74 10:37:000.1[facility] HermannHEMATOLOGY 2020-08-29 10:37:001+ *ABN*(08/29/20 5:37 AM)[facility] NojlxkzYWQDYPDSDI3874-97-98 10:37:00Not Detected (08/29/20 5:37 AM)[facility]annBLOOD BANK RESULTS 2020-08-29 10:37:00Negative (08/29/20 5:37 AM)[facility] HermannCHEM DUHGQ8381-59-55 10:37:17240Qpmzsufm HermannCHEM MXMPI6261-62-10 10:37:0028[facility] HermannCHEM ONPRR4579-22-69 10:37:001.01[facility] HermannCHEM GJJPB7304-33-49 10:37:45620 [facility]annCHE[facility] YSDAC4152-26-52 10:37:003.8[facility] HermannCHEM PANEL 2020-08-29 10:37:35039Myrtzppq HermannCHEM ODPBS8755-50-06 10:37:0028[facility] HermannCHEM TERAP2746-33-84 10:37:009.8[facility] HermannCHEM OGFPW1923-63-94 10:37:0011.8[facility] HermannCHEM JNQKN3049-82-68 10:37:0059[facility] HermannCHEM ZHCOS6855-34-22 10:37:002.9[facility] DcbuwckFDPOPQDZQD8640-80-08 10:37:006.8 [facility] XngqrrpYTJDSLGXMM5970-57-16 10:37:004.47[facility] HermannHEMATOLOGY 2020-08-29 10:37:0010.6[facility] JjvjndyBEYARRATDL9780-68-14 10:37:0034.0[facility] LapsnzrBQNFPIZJEA5654-76-76 10:37:0076.1[facility] SkzszizUWWJCNZQPC4602-94-75 10:37:00 Test Item Value Reference Range Interpretation Comments MCH (test code = MCH) 23.8 pg 27.0-31.0 [facility] UruwrsgKJVABYMTSA6562-42-07 10:37:0031.3[facility] HermannHEMATOLOGY 2020-08-29 10:37:0018.2[facility] TmfmxriHCBNXPMFWO9798-89-02 10:37:85718Lrzgtyrv QgxfytcAUOUNNSXKD0694-78-49 10:37:007.5[facility] MtnxihqTZLOHTQCZA2420-55-88 10:37:00 Test Item Value Reference Range Interpretation Comments PT (test code = PT) 12.8 s 12.0-14.7 [facility] NgugoypOVNAWLLJEG3297-13-13 10:37:00 Test Item Value Reference Range Interpretation Comments INR (test code = INR) 0.97 1 0.85-1.17 [facility] VsrjuieLZXDYIERBK5910-51-14 10:37:00 Test Item Value Reference Range Interpretation Comments PTT (test code = PTT) 25.0 s 22.9-35.8 [facility] IcgygbhIJRUAWETXZ1255-91-11 10:37:0070.5[facility] HermannHEMATOLOGY 2020-08-29 10:37:0018.8[facility] ViklemaGCYONMOFOQ7579-17-49 10:37:009.5[facility] YvxcdkqPZTOWDYRYT4518-89-89 10:37:000.9[facility] CwluvyoFSCFZHDRXC5749-25-99 10:37:000.3[facility] YvfthzxVADOFEMJOE0990-34-43 10:37:004.8[facility] PMBJQZBWNB5809-27-86 10:37:001.3[facility] EyiwzdtXVTZBMPTOS0875-45-30 10:37:000.6 [facility] YxeuyluVXEHYHJUYA1804-18-42 10:37:000.1[facility] HermannHEMATOLOGY 2020-08-29 10:37:001+ *ABN*(08/29/20 5:37 AM)[facility] DguiznbAERXYTUTHH0472-87-56 10:37:00Not Detected (08/29/20 5:37 AM)[facility]annBLOOD BANK RESULTS 2020-08-29 10:37:00Negative (08/29/20 5:37 AM)[facility] HermannCHEM CCLDX5111-63-01 10:37:99980Iblvakbq HermannCHEM QWSWZ6508-07-38 10:37:0028[facility] HermannCHEM WSGPI0204-77-57 10:37:001.01[facility] HermannCHEM LJNWD2592-71-54 10:37:43807 [facility]annCHEM EYRJR2495-07-92 10:37:003.8[facility] HermannCHEM PANEL 2020-08-29 10:37:09793Exdsklwk [facility]annCHEM GCTLZ8900-12-00 10:37:0028[facility] HermannCHEM BNQQM3407-52-83 10:37:009.8[facility] HermannCHEM VOYTT7484-85-48 10:37:0011.8[facility] HermannCHEM RQZQR3874-33-32 10:37:0059[facility] HermannCHEM JPQLT9347-83-53 10:37:002.9[facility] GqarxtxEZEOTYUFFD2122-23-76 10:37:006.8 [facility] CcbadlnIPMQNUUKUJ3053-52-70 10:37:004.47[facility] HermannHEMATOLOGY 2020-08-29 10:37:0010.6[facility] AuyvwktIFSETLPIUI2766-40-99 10:37:0034.0[facility] SdrpvglTSHELORLMK5303-95-29 10:37:0076.1[facility] ZopfddxDLFCMULAVJ4767-78-80 10:37:00 Test Item Value Reference Range Interpretation Comments MCH (test code = MCH) 23.8 pg 27.0-31.0 [facility] DcbgtrzFPOAADDOKI6297-26-83 10:37:0031.3[facility] HermannHEMATOLOGY 2020-08-29 10:37:0018.2[facility] UmrfcmrREPQOFCOPF3743-48-22 10:37:91287Cwqrfgfl FkeebziTCQWPUNXJX3395-41-87 10:37:007.5[facility] MtxilquYTKLPBWKNX4936-48-79 10:37:00 Test Item Value Reference Range Interpretation Comments PT (test code = PT) 12.8 s 12.0-14.7 [facility] YtqnkelBYYEKBJWUN6523-27-56 10:37:00 Test Item Value Reference Range Interpretation Comments INR (test code = INR) 0.97 1 0.85-1.17 [facility] QwaufkgVCEWFEYDTD8987-48-25 10:37:00 Test Item Value Reference Range Interpretation Comments PTT (test code = PTT) 25.0 s 22.9-35.8 [facility] TiowhdbPBIDXJXYJR4810-79-40 10:37:0070.5[facility] HermannHEMATOLOGY 2020-08-29 10:37:0018.8[facility] HsmbhhqQGWZBFKLAH9206-76-56 10:37:009.5[facility] EmpyvfmWWYUDRBMEK7278-22-25 10:37:000.9[facility] EeajnyoTLIFIILIFG9280-80-98 10:37:000.3[facility] CwrbnvoTVVILZYWZP0122-73-48 10:37:004.8[facility] SUNNWGQONE2046-58-27 10:37:001.3[facility] QwjxylePMAYUJGDXK8271-49-00 10:37:000.6 [facility] JjsllrtDJMBTUTPYZ5328-33-78 10:37:000.1[facility] HermannHEMATOLOGY 2020-08-29 10:37:001+ *ABN*(08/29/20 5:37 AM)[facility] MfzdswhRIQHNIKPUW6813-02-12 10:37:00Not Detected (08/29/20 5:37 AM)[facility] HermannBLOOD BANK RESULTS 2020-08-29 10:37:00Negative (08/29/20 5:37 AM)[facility] HermannCHEM JYTNK9037-64-78 10:37:04125Pclsbvtc HermannCHEM SJPZY1886-89-45 10:37:0028[facility] HermannCHEM XTMUW9762-18-27 10:37:001.01[facility] HermannCHEM JCPJT1654-94-50 10:37:56703 [facility]annCHEM XKRWR1551-08-16 10:37:003.8[facility] HermannCHEM PANEL 2020-08-29 10:37:75532Xajqjjjo HermannCHEM IXCLD4869-85-41 10:37:0028[facility] HermannCHEM URZUL4187-31-95 10:37:009.8[facility] HermannCHEM LULTN8483-14-81 10:37:0011.8[facility] HermannCHEM SNDOS4875-66-99 10:37:0059[facility] HermannCHEM XXSRQ2318-95-07 10:37:002.9[facility] MvqrgimXVAFFJXDPO1435-62-30 10:37:006.8 [facility] BfujiplCUEGOMNKCI7182-89-68 10:37:004.47[facility] HermannHEMATOLOGY 2020-08-29 10:37:0010.6[facility] XygqyvrUNCVFOKIOI1624-54-91 10:37:0034.0[facility] OvbtgwcSDCICQQEVL7396-64-04 10:37:0076.1[facility] RzfxeudOITFALYKAA0046-16-12 10:37:00 Test Item Value Reference Range Interpretation Comments MCH (test code = MCH) 23.8 pg 27.0-31.0 [facility] HqcgrubKNHJNVGELC7795-15-84 10:37:0031.3[facility] HermannHEMATOLOGY 2020-08-29 10:37:0018.2[facility] BxqqubkWITBLYMNWF3401-66-90 10:37:08252Bxacyypk WsqqlaoTWAWGTSIFX4083-09-69 10:37:007.5[facility] QmissfiGQSGKQRBNI8662-22-83 10:37:00 Test Item Value Reference Range Interpretation Comments PT (test code = PT) 12.8 s 12.0-14.7 [facility] MuqqhkzCFXZQCHGUX2023-09-98 10:37:00 Test Item Value Reference Range Interpretation Comments INR (test code = INR) 0.97 1 0.85-1.17 [facility] VjdgwjhKKQHLYBFLU4462-45-84 10:37:00 Test Item Value Reference Range Interpretation Comments PTT (test code = PTT) 25.0 s 22.9-35.8 [facility] BjpjxioKDEJWCZUTJ6889-95-22 10:37:0070.5[facility] HermannHEMATOLOGY 2020-08-29 10:37:0018.8[facility] IgleezhUFMDVFXGCW4120-70-70 10:37:009.5[facility] IdchssyEVFLMALELF1623-78-33 10:37:000.9[facility] YmimhmaGXKIWFISAK8873-92-82 10:37:000.3[facility] FyqoiunETAFTWSPQY0800-07-59 10:37:004.8[facility] PCFOONYZSL3551-04-27 10:37:001.3[facility] UfobstqCIZVZNOMXI5568-59-86 10:37:000.6 [facility] VapbtgrKQXJXNTLHQ8448-31-84 10:37:000.1[facility] HermannHEMATOLOGY 2020-08-29 10:37:001+ *ABN*(08/29/20 5:37 AM)[facility] PzqshmpJDRDUOOAWT1952-04-61 10:37:00Not Detected (08/29/20 5:37 AM)[facility]annBLOOD BANK RESULTS 2020-08-29 10:37:00Negative (08/29/20 5:37 AM)[facility] HermannCHEM OLUIN3740-99-98 10:37:41627Qjwmuxbc HermannCHEM OQPEN0072-37-66 10:37:0028[facility] HermannCHEM WLLOJ6230-42-45 10:37:001.01[facility] HermannCHEM WFUJZ3442-14-80 10:37:45243 [facility]annCHEM NNHII2246-12-31 10:37:003.8[facility] HermannCHEM PANEL 2020-08-29 10:37:86152Xsdghhon HermannCHEM SQMTB7561-35-59 10:37:0028[facility] HermannCHEM IISXA0297-03-93 10:37:009.8[facility] HermannCHEM TMJAF2952-34-99 10:37:0011.8[facility] HermannCHEM VNXBU6876-30-73 10:37:0059[facility] HermannCHEM ZLPMY8460-46-90 10:37:002.9[facility] GjankplWXWPZPGNTK7343-29-80 10:37:006.8 [facility] LptxwliGBDIOVLDMW1594-86-52 10:37:004.47[facility] HermannHEMATOLOGY 2020-08-29 10:37:0010.6[facility] LhtdoveUMYXVTWVFN5527-48-65 10:37:0034.0[facility] FaaghcbDRASYZFGBU4703-06-57 10:37:0076.1[facility] HuomfxqCGBLGJAKYQ3663-49-32 10:37:00 Test Item Value Reference Range Interpretation Comments MCH (test code = MCH) 23.8 pg 27.0-31.0 [facility] YuojovyUYFOVXLCMX2002-42-73 10:37:0031.3[facility] HermannHEMATOLOGY 2020-08-29 10:37:0018.2[facility] CarzwnwSVICPUKANR3418-14-97 10:37:72390Ubtrifuj PnstmwxBKXMOCWRID5784-73-07 10:37:007.5[facility] DbseyueQCWDNGNPJL9967-05-35 10:37:00 Test Item Value Reference Range Interpretation Comments PT (test code = PT) 12.8 s 12.0-14.7 [facility] HvytlbwRWQGGEKIXG4171-53-68 10:37:00 Test Item Value Reference Range Interpretation Comments INR (test code = INR) 0.97 1 0.85-1.17 [facility] KbtcnmsIJPKNOMZLA1237-71-66 10:37:00 Test Item Value Reference Range Interpretation Comments PTT (test code = PTT) 25.0 s 22.9-35.8 [facility] WzjehlhFUKIIJPUAR2564-69-15 10:37:0070.5[facility] HermannHEMATOLOGY 2020-08-29 10:37:0018.8[facility] RukngbzGOBLSFYGUD6714-20-56 10:37:009.5[facility] EbgaiziGZJOSYYNQJ8725-66-87 10:37:000.9[facility] XkyxkvaZEAYCHJXGN7170-45-25 10:37:000.3[facility] EwwrdbkLIVVMRFUDE5049-82-32 10:37:004.8[facility] BADXKHAYUS5582-21-50 10:37:001.3[facility] BgmukulEBUIKAMQMB1937-52-04 10:37:000.6 [facility] YyrdnndPQAJIDLMFV6818-44-79 10:37:000.1[facility] HermannHEMATOLOGY 2020-08-29 10:37:001+ *ABN*(08/29/20 5:37 AM)[facility] VancswqHPWTNVXSPL1522-22-48 10:37:00Not Detected (08/29/20 5:37 AM)[facility]annBLOOD BANK RESULTS 2020-08-29 10:37:00Negative (08/29/20 5:37 AM)[facility] HermannCHEM CTALW2050-86-05 10:37:39016Hwpprymk HermannCHEM DLRQR8197-39-53 10:37:0028[facility] HermannCHEM TNDDR9448-99-43 10:37:001.01[facility] HermannCHEM QFDSV3849-74-43 10:37:86580 [facility]annCHEM MEITF0362-49-75 10:37:003.8[facility] HermannCHEM PANEL 2020-08-29 10:37:33317Wekzisjw HermannCHEM OIANL0219-63-04 10:37:0028[facility] HermannCHEM YCHYV8367-84-18 10:37:009.8[facility] HermannCHEM GYYFQ4193-68-05 10:37:0011.8[facility] HermannCHEM LEGPV2912-69-43 10:37:0059[facility] HermannCHEM RJDXX5248-81-30 10:37:002.9[facility] AmecvsaBRLSCRDLIO4339-02-08 10:37:006.8 [facility] CflvwvwZILSBJMQJO9792-26-14 10:37:004.47[facility] HermannHEMATOLOGY 2020-08-29 10:37:0010.6[facility] XbxysnpQGDGFIITIL4681-33-82 10:37:0034.0[facility] CdghrpzZINCRSWHZX1272-45-98 10:37:0076.1[facility] UbknoxjLZZSVCTQWJ2904-00-92 10:37:00 Test Item Value Reference Range Interpretation Comments MCH (test code = MCH) 23.8 pg 27.0-31.0 [facility] KpiqxqlAEHJKVCDXW3035-94-22 10:37:0031.3[facility] HermannHEMATOLOGY 2020-08-29 10:37:0018.2[facility] PdqpxpyWMIGYAFNZE4144-10-81 10:37:63553Eyolfgfv TbfrzqrLKUZEVHWXG0768-49-49 10:37:007.5[facility] WoocjvhCQKBZGQEUN2886-83-18 10:37:00 Test Item Value Reference Range Interpretation Comments PT (test code = PT) 12.8 s 12.0-14.7 [facility] IpwqnesZTSXNZZXPY4104-85-65 10:37:00 Test Item Value Reference Range Interpretation Comments INR (test code = INR) 0.97 1 0.85-1.17 [facility] QrgcvboMWOITYWDWJ2647-27-41 10:37:00 Test Item Value Reference Range Interpretation Comments PTT (test code = PTT) 25.0 s 22.9-35.8 [facility] SxaiyzhISPMTOLKPB6158-07-47 10:37:0070.5[facility] HermannHEMATOLOGY 2020-08-29 10:37:0018.8[facility] EscxwvgBUNAMLBQXY2677-86-15 10:37:009.5[facility] AicljwyBRDYKEUWWW7507-15-66 10:37:000.9[facility] OciiuhsSFMWMWFKFD5303-09-91 10:37:000.3[facility] UeqpiuhEADYJAYHMJ3563-84-67 10:37:004.8[facility] IUHFRQLXXA9912-10-75 10:37:001.3[facility] IassyinZINPKGVIOH6988-16-36 10:37:000.6 [facility] JqwpkqkILUJKPGFKH1074-29-50 10:37:000.1[facility] HermannHEMATOLOGY 2020-08-29 10:37:001+ *ABN*(08/29/20 5:37 AM)[facility] JevkcizIBZKVSQPMG6449-22-27 10:37:00Not Detected (08/29/20 5:37 AM)[facility]CH[facility]AMYDIA, GC, TV,PCR, IN RPFNU1576-94-45 15:38:00 Test Item Value Reference Range Interpretation Comments FT (test code = CHTR) Not detected (qualifier Not Detected N value) FT (test code = Not detected (qualifier Not Detected N NGONO) value) FT (test code = TRVG) Not detected (qualifier Not Detected N value) URINALYSIS WITH JEOPYBIDKHF2897-89-50 10:57:00 Test Item Value Reference Range Interpretation Comments Color (test code = UCOLR) Dk. Yellow Clarity (test code = UCLAR) Hazy Glucose (test code = UGLUC) NEGATIVE NEGATIVE N Bilirubin (test code = UBILI) NEGATIVE NEGATIVE N Ketones (test code = UKET) NEGATIVE NEGATIVE N Specific [place] (test code = 1.025 1.005-1.030 A USPGR) [...]
[2022-01-30 13:45] LABS: Absolute Lymphocytes (CBC) 1.4 K/uL (0.7-4.9); Hematocrit 38.7 % (36.0-45.0); Lymphocytes % 22.2 % (15.3-44.8); MCV 87.7 fL (80-100); RBC Red Blood Cell Count 4.41 M/uL (3.86-4.86)
[2022-01-30 13:48] LABS: Protime INR 1.04
--- NOTE | 2022-01-30 13:51 | RAD REPORT ---
EXAM DESCRIPTION: RAD - Chest Single View - 01/30/2022 1:30 pm CLINICAL HISTORY: Chest pain COMPARISON: Chest Single View dated 01/29/2022; Chest Single View dated 01/15/2022; Chest Single View d ated 01/05/2022; Chest Single View dated 01/04/2022 FINDINGS: Lines: None. Lungs: No evidence of edema or pneumonia. Pleural: No significant pleural effusions or pneumothorax. Cardiac: Cardiomegaly. Mediastinum: Within normal limits. Bones: No acute fractures. Shoulder arthroplasties. Other: None IMPRESSION: No acute cardiopulmonary disease.
[2022-01-30 14:14] LABS: Albumin 3.4 g/dL (3.4-5.0); Bilirubin Direct 0.2 mg/dL (0-0.2); Bilirubin Total 0.6 mg/dL (0.2-1.0); Magnesium 2.2 mg/dL (1.8-2.4); Potassium 3.1 mmol/L (3.5-5.1); Protein, Total 7.4 g/dL (6.4-8.2); Troponin High Sensitivity 15.1 pg/mL (<58.9)
--- NOTE | 2022-01-30 17:00 | EDPHYS ---
Physician Documentation [facility] Name: Fawn Fleming Age: 67 yrs Sex: Female : 1955 Arrival Date: 01/30/2022 Time: 12:46 Bed 18 Private MD: Lele Rahman H ED Physician Justus Kolb HPI: 01/30 16:44 This 67 yrs old Female presents to ER via Wheelchair with complaints of Chest thomas Pain, Breathing Difficulty. 16:44 The patient or guardian reports chest pain that is located primarily in the anterior thomas chest wall, bilaterally. Onset: 2 day(s) ago. The pain does not radiate. Associated signs and symptoms: Pertinent positives: shortness of breath. The chest pain is described as aching. Duration: The patient or guardian reports multiple episodes, with no pattern. Severity of pain: At its worst the pain was mild in the emergency department the pain is unchanged. The patient has experienced similar episodes in the past, multiple times. Historical: - Allergies: 12:57 Bactrim DS; kr3 12:57 butorphanol tartrate; kr3 12:57 Fentanyl; kr3 12:57 Reglan; kr3 12:57 Stadol; kr3 12:57 sulfamethoxazole (bulk); kr3 12:57 TRIMETHOPRIM; kr3 - PMHx: 12:57 Anxiety; Atrial Fib; Bipolar disorder; Chronic pain; COPD; esophageal varices; kr3 Hepatitis; HIV; Hypertension; Migraines; Panic Attacks; - PSHx: 12:57 Appendectomy; Bilateral shoulder repair; Cholecystectomy; hernia repair; R wrist SX; kr3 - Family history:: not pertinent. ROS: 16:44 Constitutional: Negative for fever, chills, and weight loss, Eyes: Negative for injury, thomas pain, redness, and discharge, ENT: Negative for injury, pain, and discharge, Neck: Negative for injury, pain, and swelling, Abdomen/GI: Negative for abdominal pain, nausea, vomiting, diarrhea, and constipation, Back: Negative for injury and pain, : Negative for injury, bleeding, discharge, and swelling, MS/Extremity: Negative for injury and deformity, Skin: Negative for injury, rash, and discoloration, Neuro: Negative for headache, weakness, numbness, tingling, and seizure, Psych: Negative for depression, anxiety, suicide ideation, homicidal ideation, and hallucinations, Allergy/Immunology: Negative for hives, rash, and allergies, Endocrine: Negative for neck swelling, polydipsia, polyuria, polyphagia, and marked weight changes, Hematologic/Lymphatic: Negative for swollen nodes, abnormal bleeding, and unusual bruising. 16:44 Cardiovascular: Positive for chest pain, with cough, with movement. 16:44 Respiratory: Positive for cough, with no reported sputum. Exam: 16:44 Constitutional: This is a well developed, well nourished patient who is awake, alert, thomas and in no acute distress. Head/Face: Normocephalic, atraumatic. Eyes: Pupils equal round and reactive to light, extra-ocular motions intact. Lids and lashes normal. Conjunctiva and sclera are non-icteric and not injected. Cornea within normal limits. Periorbital areas with no swelling, redness, or edema. ENT: Nares patent. No nasal discharge, no septal abnormalities noted. Tympanic membranes are normal and external auditory canals are clear. Oropharynx with no redness, swelling, or masses, exudates, or evidence of obstruction, uvula midline. Mucous membranes moist. Neck: Trachea midline, no thyromegaly or masses palpated, and no cervical lymphadenopathy. Supple, full range of motion without nuchal rigidity, or vertebral point tenderness. No Meningismus. Chest/axilla: Normal chest wall appearance and motion. Nontender with no deformity. No lesions are appreciated. Cardiovascular: Regular rate and rhythm with a normal S1 and S2. No gallops, murmurs, or rubs. Normal PMI, no JVD. No pulse deficits. Abdomen/GI: Soft, non-tender, with normal bowel sounds. No distension or tympany. No guarding or rebound. No evidence of tenderness throughout. Back: No spinal tenderness. No costovertebral tenderness. Full range of motion. Female : Normal external genitalia. Skin: Warm, dry with normal turgor. Normal color with no rashes, no lesions, and no evidence of cellulitis. MS/ Extremity: Pulses equal, no cyanosis. Neurovascular intact. Full, normal range of motion. Neuro: Awake and alert, GCS 15, oriented to person, place, time, and situation. Cranial nerves II-XII grossly intact. Motor strength 5/5 in all extremities. Sensory grossly intact. Cerebellar exam normal. Normal gait. Psych: Awake, alert, with orientation to person, place and time. Behavior, mood, and affect are within normal limits. 16:44 Respiratory: the patient does not display signs of respiratory distress, Respirations: normal, Breath sounds: bronchial sounds, that are mild, are scattered, Respiratory rate: 16 16:44 Musculoskeletal/extremity: DVT Exam: No signs of deep vein thrombosis. no pain, no swelling, no tenderness, negative Homans' sign noted on exam, no appreciated bluish discoloration, no erythema, no increased warmth. 17:02 ECG was reviewed by the Attending Physician. [facility] Vital Signs: 13:00 BP 205 / 110; Pulse 58; Resp 17; Pulse Ox 94% ; jh6 13:01 BP 220 / 132; Pulse 65; Resp 18; Temp 98.1; Pulse Ox 100% on R/A; kr3 14:00 BP 212 / 109; Pulse 60; Resp 17; Pulse Ox 94% on R/A; Pain 8/10; jh6 14:30 BP 178 / 105; Pulse 70; Resp 16; Pulse Ox 94% on R/A; Pain 6/10; jh6 17:18 BP 193 / 108; Pulse 64; Resp 16; ss MDM: 12:56 Patient medically screened. thomas 16:47 Differential diagnosis: chest wall pain, costochondritis, pancreatitis, pneumonia, thomas pneumothorax, pulmonary embolus, stable angina, thoracic aortic disection, unstable angina. HEART Score: History: Slightly Suspicious (0), ECG: Non specific repolarization disturbance / LBTB / PM (1), Age: > or = 65 years (2), Risk Factors: > or = 3 Risk factors for atherosclerotic disease (2), [Hypercholesterolemia] [Hypertension] [+ Family HX] [Obesity] Troponin: < or = 1 x Normal Limit (0). The patient was given aspirin in the Emergency Department. The patient's deep vein thrombosis risk score was calculated as follows: Total Score: 0. This patient was found to be at low risk for a deep vein thrombosis by using the Well's assessment criteria. The patient's pulmonary embolism risk score was calculated as follows: Total Score: 0-2 points. This patient was found to be at low risk for a pulmonary embolism by using the Well's assessment criteria. MONI Risk Score: 1 - patient's age is greater or equal to 65 years, 1 - Three or more CAD risk factors, 1- Known CAD, 1 - ASA use in past 7 days, TOTAL SCORE = 4. Data reviewed: vital signs, nurses notes, lab test result(s), EKG, radiologic studies, plain films. Data interpreted: alarm security or surveillance monitor: rate is 70 beats/min, rhythm is regular. Test interpretation: by ED physician or midlevel provider: ECG, plain radiologic studies. Counseling: I had a detailed discussion with the patient and/or guardian regarding: the historical points, exam findings, and any diagnostic results supporting the discharge/admit diagnosis, lab results, radiology results, the need for outpatient follow up, for definitive care, a director weights and measures, an clinical researcher. 01/30 12:58 Order name: Basic Metabolic Panel; Complete Time: 14:18 [facility] 01/30 12:58 Order name: CBC with Diff; Complete Time: 14:18 [facility] 01/30 12:58 Order name: LFT's; Complete Time: 14:18 [facility] 01/30 12:58 Order name: Magnesium; Complete Time: 14:18 [facility] 01/30 12:58 Order name: NT PRO-BNP; Complete Time: 14:18 [facility] 01/30 12:58 Order name: PT-INR; Complete Time: 14:18 [facility] 01/30 12:58 Order name: Troponin HS; Complete Time: 14:18 [facility] 01/30 12:58 Order name: XRAY Chest (1 view); Complete Time: 14:18 [facility] 01/30 12:58 Order name: EKG; Complete Time: 12:59 [facility] 01/30 12:58 Order name: Cardiac monitoring; Complete Time: 13:52 [facility] 01/30 12:58 Order name: EKG - Nurse/Tech; Complete Time: 13:12 [facility] 01/30 12:58 Order name: IV Saline Lock; Complete Time: 13:52 [facility] 01/30 12:58 Order name: Labs collected and sent; Complete Time: 13:52 [facility] 01/30 12:58 Order name: O2 Per Protocol; Complete Time: 13:12 [facility] 01/30 12:58 Order name: O2 Sat Monitoring; Complete Time: 13:13 [facility] EC:02 Rate is 61 beats/min. Rhythm is regular. QRS [place] is Normal. [place] interval is normal. QRS thomas interval is normal. QT interval is prolonged at 471 msec. No Q waves. T waves are Normal. No ST changes noted. Clinical impression: Abnormal EKG without significant change and No evidence of ischemia. Interpreted by me. Reviewed by me. Administered Medications: 14:04 Drug: NS 0.9% 1000 ml Route: IV; Rate: 125 ml/hr; Site: right hand; 6 14:28 Drug: Zofran (Ondansetron) 4 mg Route: IVP; Site: right hand; 6 14:29 Drug: hydrALAZINE 20 mg Route: IVP; Site: right hand; 6 14:29 Drug: HydrALAZINE 25 mg Route: PO; 6 14:29 Drug: morphine 4 mg Route: IVP; Site: right hand; 6 17:18 Drug: Potassium Effervescent Tablet 50 mEq Route: PO; ss 17:26 Drug: [place] (HYDROcodone-acetaminophen) 10 mg-325 mg 1 tabs Route: PO; ss 17:26 Drug: Lopressor (metoprolol TARTRATE) 100 mg Route: PO; ss 17:26 Drug: Lisinopril 20 mg Route: PO; ss Disposition Summary: 01/30/22 17:00 Discharge Ordered Location: Home thomas Problem: new thomas Symptoms: have improved thomas Condition: Stable thomas Diagnosis - Chest pain, unspecified thomas - COPD/ Chronic obstructive pulmonary disease, unspecified thomas - Essential (primary) hypertension thomas - Chronic pain, not elsewhere classified thomas - Hypokalemia thomas Followup: thomas - With: Private Physician - When: 2 - 3 days - Reason: Recheck today's complaints, Continuance of care, Re-evaluation by your physician Followup: thomas - With: Per Crane MD - When: 2 - 3 days - Reason: Recheck today's complaints, Continuance of care, Re-evaluation by your physician Discharge Instructions: - Discharge Summary Sheet thomas - Nonspecific Chest Pain, Adult thomas - Chronic Obstructive Pulmonary Disease thomas - Potassium Content of Foods thomas - Hypertension, Adult thomas - Nonspecific Chest Pain, Adult, [id number] thomas - Hypertension, Adult, [id number] thomas - How to Take Your Blood Pressure, [id number]-rq-[id number] thomas - Aspirin and Your Heart thomas - Hypokalemia thomas - Managing Your Hypertension thomas Forms: - Medication Reconciliation Form thomas - Thank You Letter thomas - Antibiotic Education thomas - Prescription Opioid Use thomas Prescriptions: - Albuterol Sulfate 2.5 mg /3 mL (0.083 %) Inhalation Solution for Nebulization - inhale 1 unit by NEBULIZATION route every 8 hours As needed; 1 box; Refills: 0, thomas Product Selection Permitted Signatures: Dispatcher [employer] EDJustus Perrin MD MD cha Smirch, Shelby, RN RN ss Karen Lo RN RN jh6 Sharee Harrell RN RN kr3
--- NOTE | 2022-01-30 17:00 | ER ---
Nurse's Notes [facility] Name: Fawn Fleming Age: 67 yrs Sex: Female : 1955 Arrival Date: 01/30/2022 Time: 12:46 Bed 18 Private MD: Lele Rahman H Diagnosis: Chest pain, unspecified;COPD/ Chronic obstructive pulmonary disease, unspecified;Essential (primary) hypertension;Chronic pain, not elsewhere classified;Hypokalemia Presentation: 01/30 12:57 Chief complaint: Patient states: SOB and has a headache 03/01. kr3 12:57 Method Of Arrival: Wheelchair kr3 13:01 Initial Sepsis Screen: Does the patient meet any 2 criteria? No. Patient's initial kr3 sepsis screen is negative. Does the patient have a suspected source of infection? No. Patient's initial sepsis screen is negative. Risk Assessment: Do you want to hurt yourself or someone else? Patient reports no desire to harm self or others. Onset of symptoms. Onset of symptoms is unknown. 13:01 Acuity: BLAYNE 3 kr3 13:06 Ebola Screen: Patient denies travel to an Ebola-affected area in the 21 days before kr3 illness onset. Triage Assessment: 12:58 General: Appears in no apparent distress. comfortable, Behavior is calm, cooperative, kr3 appropriate for age. Pain: Complains of pain in face Pain currently is 10 out of 10 on a pain scale. Cardiovascular: Reports None. Historical: - Allergies: 12:57 Bactrim DS; kr3 12:57 butorphanol tartrate; kr3 12:57 Fentanyl; kr3 12:57 Reglan; kr3 12:57 Stadol; kr3 12:57 sulfamethoxazole (bulk); kr3 12:57 TRIMETHOPRIM; kr3 - PMHx: 12:57 Anxiety; Atrial Fib; Bipolar disorder; Chronic pain; COPD; esophageal varices; kr3 Hepatitis; HIV; Hypertension; Migraines; Panic Attacks; - PSHx: 12:57 Appendectomy; Bilateral shoulder repair; Cholecystectomy; hernia repair; R wrist SX; kr3 - Family history:: not pertinent. Screenin:06 Abuse screen: Denies threats or abuse. Denies injuries from another. Nutritional jh6 screening: No deficits noted. Tuberculosis screening: No symptoms or risk factors identified. Fall Risk None identified. Assessment: 13:04 General: Appears in no apparent distress. Behavior is calm, cooperative. Pain: jh6 Complains of pain in forehead Pain does not radiate. Pain currently is 10 out of 10 on a pain scale. Quality of pain is described as aching, dull, Pain began 2-3 days ago. Is continuous. Neuro: No deficits noted. Level of Consciousness is awake, alert, obeys commands, Oriented to person, place, time, situation, [place]ander are equal bilaterally Moves all extremities. Gait is steady, Speech is normal, Facial symmetry appears normal, Pupils are PERRLA, Reports headache frontal area. Musculoskeletal: Reports pain in lumbar area, left low back and right low back. 17:26 Reassessment: Dr. Kolb notified of patients elevated BP. Pt states it is time for ss her to take her home BP medications. Dr. Kolb states ok to discharge at this time, after giving dose of home medications. Pt c/o headache. [place] Given as ordered. RASS 0. Neuro: Level of Consciousness is awake, alert. Respiratory: Airway is patent Respiratory effort is even, unlabored. Vital Signs: 13:00 BP 205 / 110; Pulse 58; Resp 17; Pulse Ox 94% ; jh6 13:01 BP 220 / 132; Pulse 65; Resp 18; Temp 98.1; Pulse Ox 100% on R/A; kr3 14:00 BP 212 / 109; Pulse 60; Resp 17; Pulse Ox 94% on R/A; Pain 8/10; jh6 14:30 BP 178 / 105; Pulse 70; Resp 16; Pulse Ox 94% on R/A; Pain 6/10; jh6 17:18 BP 193 / 108; Pulse 64; Resp 16; ss ED Course: 12:46 Patient arrived in ED. mr 12:46 Lele Rahman DO is Private Physician. mr 12:51 Karen Lo, ASHLEY is Primary Nurse. jh6 12:55 Justus Kolb MD is Attending Physician. thomas 12:59 Arm band placed on Patient placed in an exam room, on a stretcher. kr3 13:02 Triage completed. kr3 13:06 Placed in gown. Bed in low position. Call light in reach. Side rails up X 1. Client jh6 placed on continuous cardiac and pulse oximetry monitoring. NIBP monitoring applied. 13:06 No provider procedures requiring assistance completed. jh6 13:32 XRAY Chest (1 view) In Process Unspecified. [facility] 16:59 Per Crane MD is Referral Physician. [facility] 17:59 IV discontinued, intact, bleeding controlled, No redness/swelling at site. Pressure ss dressing applied. Patient maintains SpO2 saturation greater than 95% on room air. Administered Medications: 14:04 Drug: NS 0.9% 1000 ml Route: IV; Rate: 125 ml/hr; Site: right hand; jh6 14:28 Drug: Zofran (Ondansetron) 4 mg Route: IVP; Site: right hand; jh6 14:29 Drug: hydrALAZINE 20 mg Route: IVP; Site: right hand; 6 14:29 Drug: HydrALAZINE 25 mg Route: PO; jh6 14:29 Drug: morphine 4 mg Route: IVP; Site: right hand; jh6 17:18 Drug: Potassium Effervescent Tablet 50 mEq Route: PO; 17:26 Drug: [place] (HYDROcodone-acetaminophen) 10 mg-325 mg 1 tabs Route: PO; 17:26 Drug: Lopressor (metoprolol TARTRATE) 100 mg Route: PO; 17:26 Drug: Lisinopril 20 mg Route: PO; Outcome: 17:00 Discharge ordered by . [facility] 17:59 Discharged to home via wheelchair, with family. 17:59 Condition: good 17:59 Discharge instructions given to patient, Instructed on discharge instructions, follow up and referral plans. Demonstrated understanding of instructions, follow-up care, Prescriptions given X 1. 18:00 Patient left the ED. ss Signatures: Dispatcher [employer] EDNC Justus Kolb MD MD cha Rivera, Jessie mr Sandra Cadet RN RN Karen Lo RN RN jh6 Sharee Harrell RN RN kr3
[2022-01-30] MEDS ORDERED: POTASSIUM 25 MEQ EFFERV TAB ONE (17:18)
[2022-01-30 18:35] VITALS: TEMP 98.1
[2022-01-30 18:38] VITALS: O2SAT 94
[2022-01-30 18:43] VITALS: BP 193/108
--- NOTE | 2022-02-01 05:40 | EKG ---
Test Date: 2022-01-30 Test Time: 13:12:53 Tufter Operator: LISBET MEASUREMENT RESULTS: Intervals: Rate: 61 HI: 192 QRSD: 82 QT: 468 QTc: 471 [place]: P: 56 HI: 192 QRS: 49 T: 69 INTERPRETIVE STATEMENTS: Normal sinus rhythm with sinus arrhythmia Minimal voltage criteria for LVH, may be normal variant Nonspecific ST and T wave abnormality Prolonged QT Abnormal ECG Compared to ECG 01/29/2022 14:22:22 Sinus bradycardia no longer present Possible ischemia no longer present ST (T wave) deviation still present Electronically Signed On 02-01-22 05:38:24 CDT by Per Crane
== END 2022-01-30 18:00 | disposition home or self-care (01) ==
LOC: ER 12:44
DX: R07.89 Other chest pain (principal); J44.9 Chronic obstructive pulmonary disease, unspecified; I10 Essential (primary) hypertension; E87.6 Hypokalemia; G89.29 Other chronic pain; Z21 Asymptomatic human immunodeficiency virus [HIV] infection status; Z88.1 Allergy status to other antibiotic agents; Z88.2 Allergy status to sulfonamides; Z88.5 Allergy status to narcotic agent; Z88.8 Allergy status to other drugs, medicaments and biological substances
CPT/HCPCS: 36415; 71045; 80048; 80076; 83735; 83880; 84484; 85025; 85610; 93005; 96374; 96375; 99284

== ENCOUNTER 2022-02-01 13:08 | Inpatient (IN) | payer OTHER ==
--- OUTSIDE RECORDS SUMMARY | 2022-02-01 13:21 | XMS REPORT | Continuity of Care Document ---
:1955 Author Organization [facility] t Address [address] [place] [address] Care Team Providers Name Role Phone Urmila Rahman Primary Care Physician ELAN LIRA Attending Clinician Unavailable SANTIAGO CARDENAS Attending Clinician Unavailable Santiago Sanchez Attending Clinician Doctor Unassigned, [place] Attending Clinician Unavailable Bill GUO Attending Clinician Unavailable Bill Rose Attending Clinician [facility] Attending Clinician Unavailable Mike Lund Attending Clinician Unavailable Beverly Layton MD Attending Clinician Eliseo Arce MD Attending Clinician Carol Ann BROADCAST MAINTENANCE TECHNICIAN, Sarai Lieberman Attending Clinician [phone] Prabhu SANCHEZ, Ashly Attending Clinician Unavailable Robbi Bal Attending Clinician Clark SANCHEZ, Monica Attending Clinician Unavailable Agustina Ortiz MA Attending [...] Policy Number Effective Date Expiration Date S [facility] COMMUNITY [id number] 2012 STARPLUS OON 00:00:00 EXCEPT [facility] WELLPATIENT'S CHOICE [facility] DUAL [id number] 2020 COMP HMO D SNP 00:00:00 MEDICAID OF [place] [id number] 2020 00:00:00 Problems Condition Condition Condition Status Onset Resolution Last Treating Co mments Source Name Details Category Date Date Treatment Clinician Date Gastropare Gastropare Disease Active Overview : Methodi sis sis 4-[address] 00:00: g of this [facility]osp[facility] 00 note l might be different from the original. Added automatic ally from request for surgery [id number] Dysphagia Dysphagia Disease Active Overview: Methodi 4-[address] 00:00: g of this Hospita 00 note l might be different from the original. 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 2020-10-15 Memoria PVI PVI 3-30 17:07:00 l ABLATION ABLATION 00:00: Patel soares W/ CARTO / W/ CARTO / 00 GA / T GA / T Active 08/19/2020 [facility] Food Food Disease Active 2019-05 Methodi [...] [facility] hoxazole 1-25 Clear 00:00: Garcia 00 [facility] trimetho DA Active [facility] prim 1- Clear 00:00: Garcia 00 [facility] codeine DA Active SV N/V [facility] 1-25 Clear 00:00: Garcia [facility] Metoclop Propensi Active [place] ramide [...] Date Stop Date Source [facility] father Kidney disease Method ist [facility] mother [facility] Social History Social Habit Start Date Stop Date Quantity Comments Source History of tobacco Cigarette Smoker Gnosticism use Hospital History SDOH Gnosticism Alcohol Frequency Hospita l History SDOH Gnosticism Alcohol Std Drinks Hospit al History SDNJ Gnosticism Alcohol Binge Hospital Exposure to 2021-12-02 2021-12-12 Not sure University SARS-CoV-2 (event) 00:00:00 23:54:00 [facility] [place] [facility] Alcohol intake 2020-12-08 2020-12-08 Current drinker Metho dist 00:00:00 00:00:00 of alcohol Hospital (finding) Cigarettes smoked 2020-09-05 2020-09-[address] current (pack per 00:00:00 00:00:00 Hospita l day) - Reported Cigarette 2020-09-05 2020-09-05 Gnosticism pack-years 00:00:00 00:00:00 Hospital Tobacco use and 2020-08-06 2020-08-06 Former smokeless Uni versity of exposure 00:00:00 00:00:00 tobacco user [facility] [place] Alcohol Comment 2016-09-23 2016-09-23 rare Gnosticism 00:00:00 00:00:00 Hospital Tobacco Comment 2015-02-14 2015-02-14 Smokes approx 1-2 Un iversity of 00:00:00 00:00:00 cigarettes per [facility] when she Branch smokes Sex Assigned At [birth year] [facility] 00:00:00 00:00:00 Smoking Status Start Date Stop Date Source Ex-smoker 2020-08-06 00:00:00 2020-08-06 00:00:00 [facility] Medications Ordered Filled Start Stop Current Ordering Indication Dosage Frequency Signature Comments Components Source Medication Medication Date Date Medication? Clinician (SIG) Name Name ravindra Yes [id number] Take one Univers ne-tenofovi 9-12 po daily ity of r alafen 00:00: [place] (DESCOVY) 00 Medical tablet [place] methocarbam No 500mg 500 mg, U nivers oL 12-13 Oral, ity of (ROBAXIN) 07:45: 06:35 ONCE, 1 [place] tablet 500 [place] :00 dose, On Medic al mg [place] 7/24/22 at 0245, Routine ketorolac 2021-0 2022- No 30mg 30 mg, Unive rs (TORADOL) 7-24 07-24 Intramuscu ity of injection 07:45: 06:34 lar, ONCE, [place] 30 mg 00 :00 1 dose, On Medical [place] 12/13/21 at 0245, JOE naproxen 2-0 Yes [id number] 500mg Take 1 U nivers (NAPROSYN) 7-24 tablet by ity of 500 mg 00:00: mouth in [place] tablet 00 the Medical morning Branch and 1 tablet in the evening. Take with meals. methocarbam 2021-0 Yes [id number] 500mg Take 1 Univers oL 500 mg 7-24 tablet by ity o f tablet 00:00: mouth 4 [place] ([facility]) Medical times [place] daily. naproxen 2-0 Yes [id number] 500mg Take 1 U nivers (NAPROSYN) 7-24 tablet by ity of 500 mg 00:00: mouth in [place] tablet 00 the Medical morning Branch and 1 tablet in the evening. Take with meals. methocarbam 2021-0 Yes [id number] 500mg Take 1 Univers oL 500 mg 7-24 tablet by ity o f tablet 00:00: mouth 4 ([facility]) Medical times [place] daily. naproxen 2-0 Yes [id number] 500mg Take 1 U nivers (NAPROSYN) 7-24 tablet by ity of 500 mg 00:00: mouth in [place] tablet 00 the Medical morning Branch and 1 tablet in the evening. Take with meals. methocarbam 2-0 Yes [id number] 500mg Take 1 Univers oL 500 mg 7-24 tablet by ity o f tablet 00:00: mouth 4 [place] ([facility]) Medical times Branch daily. naproxen 2022-0 Yes [id number] 500mg Take 1 U nivers (NAPROSYN) 7-24 tablet by ity of 500 mg 00:00: mouth in [place] tablet 00 the morning Branch and 1 tablet in the evening. Take with meals. methocarbam 2-0 Yes [id number] 500mg Take 1 Univers oL 500 mg 7-24 tablet by ity o f tablet 00:00: mouth 4 [place] ([facility]) Medical times Branch daily. hydralAZINE 2-0 Yes 25mg Take 25 mg Univers (APRESOLINE 7-01 by mouth ity of ) 25 mg 08:47: daily. [place] tablet 47 Medical Branch hydralAZINE 2021-0 Yes 25mg Take 25 mg Univers (APRESOLINE 7-01 by mouth ity of ) 25 mg 08:47: daily. [place] tablet 47 Medical Branch hydralAZINE 2021-0 Yes 25mg Take 25 mg Univers (APRESOLINE 7-01 by mouth ity of ) 25 mg 08:47: daily. [place] tablet 47 Medical Branch hydralAZINE 2021-0 Yes 25mg Take 25 mg Univers (APRESOLINE 7-01 by mouth ity of ) 25 mg 08:47: daily. [place] tablet 47 Medical Branch hydralAZINE 2021-0 Yes 25mg Take 25 mg Univers (APRESOLINE 7-01 by mouth ity of ) 25 mg 08:47: daily. [place] tablet 47 Medical Branch buPROPion 2021-0 Yes [id number] 150mg Take 1 U nivers XL 4-12 tablet by ity of (WELLBUTRIN 00:00: mouth [place] XL) 150 mg 00 daily. Medical 24 hr Branch tablet busPIRone 2021-0 Yes [id number] 30mg Take 1 Un matt 30 mg 4-12 tablet by ity of tablet 00:00: mouth 2 [place] 00 (two) Medical times Branch daily. SERTraline 2021-0 Yes [id number] 200mg Take 2 Univers 100 mg 4-12 tablets by ity of tablet 00:00: mouth [place] 00 daily. Medical Branch buPROPion 2021-0 Yes [id number] 150mg Take 1 U nivers XL 4-12 tablet by ity of (WELLBUTRIN 00:00: mouth [place] XL) 150 mg 00 daily. Medical 24 hr Branch tablet busPIRone 2021-0 Yes [id number] 30mg Take 1 Un matt 30 mg 4-12 tablet by ity of tablet 00:00: mouth 2 [place] 00 (two) Medical times Branch daily. SERTraline 2021-0 Yes [id number] 200mg Take 2 Univers 100 mg 4-12 tablets by ity of tablet 00:00: mouth [place] 00 daily. Medical Branch buPROPion 2021-0 Yes [id number] 150mg Take 1 U nivers XL 4-12 tablet by ity of (WELLBUTRIN 00:00: mouth [place] XL) 150 mg 00 daily. Medical 24 hr Branch tablet busPIRone 2021-0 Yes [id number] 30mg Take 1 Un matt 30 mg 4-12 tablet by ity of tablet 00:00: mouth 2 [place] 00 (two) Medical times Branch daily. SERTraline 2021-0 Yes [id number] 200mg Take 2 Univers 100 mg 4-12 tablets by ity of tablet 00:00: mouth [place] 00 daily. Medical Branch buPROPion 2021-0 Yes [id number] 150mg Take 1 U nivers XL 4-12 tablet by ity of (WELLBUTRIN 00:00: mouth [place] XL) 150 mg 00 daily. Medical 24 hr Branch tablet busPIRone 2021-0 Yes [id number] 30mg Take 1 Un matt 30 mg 4-12 tablet by ity of tablet 00:00: mouth 2 [place] 00 (two) Medical times Branch daily. SERTraline 2021-0 Yes [id number] 200mg Take 2 Univers 100 mg 4-12 tablets by ity of tablet 00:00: mouth [place] 00 daily. Medical Branch buPROPion 2021-0 Yes [id number] 150mg Take 1 U nivers XL 4-12 tablet by ity of (WELLBUTRIN 00:00: mouth [place] XL) 150 mg 00 daily. Medical 24 hr Branch tablet busPIRone 2021-0 Yes [id number] 30mg Take 1 Un matt 30 mg 4-12 tablet by ity of tablet 00:00: mouth 2 [place] 00 (two) Medical times Branch daily. SERTraline 2021-0 Yes [id number] 200mg Take 2 Univers 100 mg 4-12 tablets by ity of tablet 00:00: mouth [place] 00 daily. Medical Branch raltegravir 2021-0 Yes [id number] 400mg Take 1 Univers (ISENTRESS) 3-28 tablet by ity of 400 mg 00:00: mouth 2 [place] tablet 00 (two) Medical times Branch daily. raltegravir 2021-0 Yes [id number] 400mg Take 1 Univers (ISENTRESS) 3-28 tablet by ity of 400 mg 00:00: mouth 2 [place] tablet 00 (two) Medical times Branch daily. raltegravir 2021-0 Yes [id number] 400mg Take 1 Univers (ISENTRESS) 3-28 tablet by ity of 400 mg 00:00: mouth 2 [place] tablet 00 (two) Medical times Branch daily. raltegravir 0 Yes [id number] 400mg Take 1 Univers (ISENTRESS) 3-28 tablet by ity of 400 mg 00:00: mouth 2 [place] tablet 00 (two) Medical times Branch daily. raltegravir 0 Yes [id number] 400mg Take 1 Univers (ISENTRESS) 3-28 tablet by ity of 400 mg 00:00: mouth 2 [place] tablet 00 (two) Medical times Branch daily. raltegravir 0 Yes [id number] 400mg Take 1 Univers (ISENTRESS) 3-28 tablet by ity of 400 mg 00:00: mouth 2 [place] tablet 00 (two) Medical times Branch daily. LORazepam 1 Yes [id number] 1mg Take 1 Univers mg tablet 3-21 [...] times a tablet day. buPROPion 2021- No [id number] 150mg Take 1 Univers XL -24 -12 tablet by ity of (WELLBUTRIN 00:00: 00:00 [place] XL) 150 mg 00 :00 daily. Medical 24 hr Branch tablet busPIRone 2021- No [id number] 30mg Take 1 U nivers 30 mg -24 04-12 tablet by ity of tablet 00:00: 00:00 mouth 2 [place] 00 :00 (two) Medical times Branch daily. SERTraline 2021- No [id number] 200mg Take 2 Univers 100 mg -24 -12 tablets by ity of tablet 00:00: 00:00 mouth [place] 00 :00 daily. Medical Branch emtricitabi 0 Yes [id number] Take one Univers ne-tenofovi 1-20 po daily ity of r alafen 00:00: [place] (DESCOVY) 00 Medical tablet Branch emtricitabi 0 Yes [id number] Take one Univers ne-tenofovi 1-20 po daily ity of r alafen 00:00: [place] (DESCOVY) 00 Medical tablet Branch emtricitabi 0 Yes [id number] Take one Univers ne-tenofovi 1-20 po daily ity of r alafen 00:00: [place] (DESCOVY) 00 Medical tablet Branch emtricitabi 0 Yes [id number] Take one Univers ne-tenofovi 1-20 po daily ity of r alafen 00:00: [place] (DESCOVY) 00 Medical tablet Branch emtricitabi 0 Yes [id number] Take one Univers ne-tenofovi 1-20 po daily ity of r alafen 00:00: [place] (DESCOVY) 00 Medical tablet Branch emtricitabi 2021- No [id number] Take one Univers ne-tenofovi 1-20 09-12 po daily ity of r alafen 00:00: 00:00 [place] (DESCOVY) 00 :00 Medical tablet Branch metoprolol Yes [id number] Take 1 [facility] tartrate 7-26 tablet Health (Lopressor) 00:00: (100 mg 100 MG 00 total) by tablet mouth 2 (two) times a day AND 0.5 tablets (50 mg total) every night. metoprolol Yes [id number] Take 1 [place] tartrate 7-26 tablet Health [...] (affected area in groin) hydrALAZINE Yes 50mg Q.[id number] Take 50 mg Methodi (APRESOLINE 7-19 [id number] mouth [address] ) 50 MG 10:51: 3D (three) Hospita tablet 25 times a l day. busPIRone Yes 20mg QD Take 20 mg Me thodi (BUSPAR) 10 12-[address] MG tablet 10:51: nightly. [...] (shortness w/sensor of breath or wheezing). buPROPion 2021-0 Yes 150mg QD Take 150 Met hodi [...] area in groin) hydrALAZINE 0 Yes 50mg Q.[id number] Take 50 mg Methodi (APRESOLINE 7-19 [id number] [address] mouth [address] ) 50 MG [...] area in groin) hydrALAZINE 0 Yes 50mg Q.[id number] Take 50 mg [facility]i (APRESOLINE 7-[id number] mouth [address] ) 50 MG 10:51: 3D (three) Hospita tablet 25 times a l day. busPIRone 0 Yes 20mg QD Take 20 mg [facility] (BUSPAR) 10 7-[address] MG tablet 10:51: nightly. Hosp sorne 25 l acetaminoph 0 Yes 1000mg Q.5D [...] (affected area in groin) hydrALAZINE Yes 50mg Q.[id number] Take 50 mg Methodi (APRESOLINE 7-19 [id number] [address] ) 50 MG [...] mouth Hospita tablet 25 daily. l esomeprazol 2021-0 Yes 20mg QD Take 20 mg Methodi [...] QD Take 10 mg M ethodi (NORVASC) -[address] 10 mg 10:51: daily. [...] 1{appli Q.5D Apply 1 M ethodi (TEMOVATE) - cation} applicatio st 0.05 % 10:51: n Hospita ointment 25 topically l 2 (two) times a day. (affected area in groin) hydrALAZINE 0 Yes 50mg Q.[id number] Take 50 mg Methodi (APRESOLINE -19 [id number] mouth [address] ) 50 MG [...] area in groin) hydrALAZINE 0 Yes 50mg Q.[id number] Take 50 mg Methodi (APRESOLINE 7-19 [id number] mouth [address] ) 50 MG [...] (two) l tablet times a day. amLODIPine 2021-0 Yes 10mg QD Take 10 mg M [...] (affected area in groin) hydrALAZINE Yes 50mg Q.[id number] Take 50 mg [facility]i (APRESOLINE 7-[id number] mouth [address] ) 50 MG [...] Hospita capsule 25 before l breakfast. amIODarone 2021-0 Yes 200mg QD Take 200 [facility] (PACERONE) 7-[address] 200 MG 10:51: mouth Hospita tablet 25 daily. l nystatin-tr 2020-0 Yes [id number] Apply to [facility] iainolone 7-06 area(s) 3 ity of cream 00:00: (three) [place] 00 times Medical daily. Branch nystatin-tr 2020-0 Yes [id number] Apply to [facility] iainolone 7-06 area(s) 3 ity of cream 00:00: (three) [place] 00 times Medical daily. Branch nystatin-tr 2020-0 Yes [id number] Apply to [facility] iainolone 7-06 area(s) 3 ity of cream 00:00: (three) [place] 00 times Medical daily. Branch nystatin-tr 2020-0 Yes [id number] Apply to [facility] iainolone 7-06 area(s) 3 ity of cream 00:00: (three) [place] 00 times Medical daily. Branch nystatin-tr 2020-0 Yes [id number] Apply to [facility] iainolone 7-06 area(s) 3 ity of cream 00:00: (three) [place] 00 times Medical daily. Branch nystatin-tr 2020-0 Yes [id number] Apply to [facility] iainolone 7-06 area(s) 3 ity of cream 00:00: (three) [place] 00 times Medical daily. Branch budesonide- 2020-0 2021- No 1{puff} QD Inhale 1 Methodi formoteroL 6-25 06-[address] (SYMBICORT) 14:37: 00:00 morning. H ospita 160-4.5 02 :00 l mcg/actuati on inhaler hydrALAZINE 0 Yes [id number] 50mg Q.[id number] Take 1 [facility] (Apresoline 6-11 [id number] tablet (50 Health ) 50 MG 00:00: 3D mg total) tablet 00 by mouth 3 (three) times a day. hydrALAZINE 0 Yes [id number] 50mg Q.[id number] Take 1 [facility] (Apresoline 6-11 [id number] tablet (50 Health ) 50 MG 00:00: 3D mg total) tablet 00 by mouth 3 (three) times a day. Breztri 0 Yes [facility] Aerosphere -09 Health 160-9-4.8 00:00: [...] % 00:00: ointment 00 nystatin 2020- No [id number] Q.25D Take 5 mL Methodi (MYCOSTATIN 10-06 [...] ia 4-10 (Same as: l 14:00: Norvasc) [place] 00 emtricitabi No Notes: Caesar lisa ne 200 MG / 4-10 (Same as: l tenofovir 14:00: Descovy) Herm ariel alafenamide 00 Non-formul 25 MG Oral nancy Tablet [Descovy] pantoprazol No Notes: [place] lisa e 4-10 Tablet l 14:00: should not [place] 00 be chewed or crushed. (Same as: [...] ia 4-10 (Same as: l 14:00: Zoloft) [place] pantoprazol No Notes: [place] lisa e 4-10 Tablet l 14:00: should not [place] 00 be chewed or crushed. (Same as: Protonix) Amiodarone No Notes: Memor ia 4-10 (Same as: l 14:00: Cordarone) [place] Amlodipine No Notes: Memor ia 4-10 (Same as: l 14:00: Norvasc) [place] 00 emtricitabi No Notes: Caesar lisa ne 200 MG / 4-10 (Same as: l tenofovir 14:00: Descovy) Herm ariel alafenamide 00 Non-formul 25 MG Oral nancy Tablet [Descovy] Sertraline No Notes: Memor ia 4-10 (Same as: l 14:00: Zoloft) [place] 00 pantoprazol No Notes: Caesar lisa e [...] ia 4-10 (Same as: l 14:00: Zoloft) [place] pantoprazol No Notes: [place] lisa e 4-10 Tablet l 14:00: should not [place] 00 be chewed or crushed. (Same as: Protonix) Amiodarone No Notes: Memor ia 4-10 (Same as: l 14:00: Cordarone) [place] Amlodipine No Notes: Memor ia 4-10 (Same as: l 14:00: Norvasc) [place] emtricitabi No Notes: Caesar lisa ne 200 MG / 4-10 (Same as: l tenofovir 14:00: Descovy) Herm ariel alafenamide 00 Non-formul 25 MG Oral nancy Tablet [Descovy] Sertraline No Notes: Memor ia 4-10 (Same as: l 14:00: Zoloft) [place] 00 pantoprazol No Notes: [place] lisa e 4-10 Tablet l 14:00: should not [place] 00 be chewed or crushed. (Same as: [...] ia 4-10 (Same as: l 14:00: Zoloft) [place] 00 pantoprazol No Notes: [place] lisa e 4-10 Tablet l 14:00: should not [place] 00 be chewed or crushed. (Same as: [...] e 4-10 Tablet l 14:00: should not [place] 00 be chewed or crushed. (Same as: [...] 0.9% 4-10 (Same as: l 02:00: BD [place] 00 Posiflush) Eliquis No Notes: Memoria 4-10 Same as: l 02:00: Eliquis Hydralazine No Notes: [place] lisa Hydrochlori 4-10 (Same as: l de 50 MG 02:00: Apresoline Her mitchell Oral Tablet ) May interfere w/enteral feedings Take With Food Sucralfate No Notes: May M emoria 4-10 interfere l 02:00: w/enteral [place] 00 feeds - Take 1 hr before [...] Memoria 4-10 Same as: l 02:00: Eliquis [place] Hydralazine No Notes: Caesar lisa Hydrochlori 4-10 [...] Memoria 4-10 Same as: l 02:00: Eliquis [place] Hydralazine No Notes: [place] lisa Hydrochlori 4-10 (Same as: l de 50 MG 02:00: Apresoline Her mitchell Oral Tablet 00 ) May interfere w/enteral feedings Take With Food Sucralfate No Notes: May M emoria 4-10 interfere l 02:00: w/enteral [place] 00 feeds - Take 1 hr before or 2 hr after antacids, dairy pdt, meals & minerals - On empty stomach. For patients unable to swallow tablet, dissolve in 10mL - 30mL of water or juice and stir before giving. (Same As: Carafate) Saline No Notes: Memoria Flush 0.9% 4-10 (Same as: l 02:00: BD [place] 00 Posiflush) Eliquis No Notes: Memoria 4-10 Same as: l 02:00: Eliquis [place] Hydralazine No Notes: Caesar lisa Hydrochlori 4-10 [...] 0.9% 4-10 (Same as: l 02:00: BD [place] Posiflush) Eliquis No Notes: Memoria 4-10 Same [...] 0.9% 4-10 (Same as: l 02:00: BD [place] Posiflush) Eliquis No Notes: Memoria 4-10 Same as: l 02:00: Eliquis [place] 00 Hydralazine No Notes: Caesar lisa Hydrochlori [...] not exceed l #3 00:12: 4gm/day of [place] acetaminop hen. (Same as: Tylenol with Codeine # 3) acetaminoph No Notes: Do M emoria en-codeine 4-10 not exceed l #3 00:12: 4gm/day of [place] acetaminop hen. (Same as: Tylenol with Codeine # 3) acetaminoph No Notes: Do M emoria en-codeine 4-10 not exceed l #3 00:12: 4gm/day of [place] acetaminop hen. (Same as: Tylenol with Codeine # 3) acetaminoph No Notes: Do M emoria en-codeine 4-10 not exceed l #3 00:12: 4gm/day of [place] acetaminop hen. (Same as: Tylenol with Codeine # 3) acetaminoph 2020-0 No Notes: Do M emoria en-codeine 4-10 not exceed l #3 00:12: 4gm/day of acetaminop hen. (Same as: Tylenol with Codeine # 3) Buspirone 2020-0 No Notes: Memori a - (Same As: l 22:00: BuSpar) Lisinopril 2020-0 No 40 mg, 1 Mem oria 4-09 tab, l 22:00: Route: PO, [place] 00 Drug form: TAB, BID, Dosing Weight 97.273, kg, Start date: 08/29/20 17:00:00 CDT, Duration: 30 day, Stop date: 09/28/20 9:00:00 CDT metoprolol 2020-0 No 100 mg, 1 Me moria tartrate - tab, l 22:00: Route: PO, [place] 00 Drug form: TAB, BID, Dosing Weight 97.273, kg, Start date: 08/29/20 17:00:00 CDT, Duration: 30 day, Stop date: 09/28/20 9:00:00 CDT Raltegravir 2020-0 No 400 mg, 1 M emoria 400 MG Oral - tab, l Tablet 22:00: Route: PO, Skylar nn [facility] 00 Drug form: TAB, BID, Dosing [...] tartrate 4-09 tab, l 22:00: Route: PO, [place] Drug form: TAB, BID, Dosing Weight 97.273, [...] Memori a 08-29 (Same As: l 22:00: Sanjivpar) Lisinopril 1-0 No 40 mg, 1 Mem [...] oria 4-09 tab, l 22:00: Route: PO, [place] 00 Drug form: TAB, BID, Dosing Weight [...] Notes: Memoria 4-09 (Same l 17:07: as:MORPhin [place] 00 e Sulfate) Morphine No Notes: Memoria 4-09 (Same l 17:07: as:MORPhin [place] 00 e Sulfate) Morphine No Notes: Memoria 4-09 (Same l 17:07: as:MORPhin [place] 00 e Sulfate) Morphine No Notes: Memoria 4-09 (Same l 17:07: as:MORPhin [place] 00 e Sulfate) Morphine No Notes: Memoria 4-09 (Same l 17:07: as:MORPhin [place] 00 e Sulfate) Morphine No Notes: Memoria [...] tab, PO, l oral 15:27: Daily, # [place] enteric 00 30 tab, 0 coated Refill(s), tablet Pharmacy: [facility], 162.56, cm, 08/29/20 5:30:00 CDT, Height, 97.273, kg, 08/29/20 5:30:00 CDT, Weight pantoprazol 2021-0 Yes 40 mg = 1 M emoria e 40 mg 4-09 tab, PO, l oral 15:27: Daily, # [place] enteric 00 30 tab, 0 coated Refill(s), tablet Pharmacy: [facility], 162.56, cm, 08/29/20 5:30:00 CDT, Height, 97.273, kg, 08/29/20 5:30:00 CDT, Weight pantoprazol 2021-0 Yes 40 mg = 1 M emoria e 40 mg 4-09 tab, PO, l oral 15:27: Daily, # [place] enteric 00 30 tab, 0 coated Refill(s), tablet Pharmacy: [facility], 162.56, cm, 08/29/20 5:30:00 CDT, Height, 97.273, kg, 08/29/20 5:30:00 CDT, Weight pantoprazol 2021-0 Yes 40 mg = 1 M emoria e 40 mg 4-09 tab, PO, l oral 15:27: Daily, # [place] enteric 00 30 tab, 0 coated Refill(s), [facility], 162.56, cm, 08/29/20 5:30:00 CDT, Height, 97.273, kg, 08/29/20 5:30:00 CDT, Weight pantoprazol 2021-0 Yes 40 mg = 1 M emoria e 40 mg 4-09 tab, PO, l oral 15:27: Daily, # [place] enteric 00 30 tab, 0 coated Refill(s), [facility], 162.[facility], cm, 08/29/20 5:30:00 CDT, Height, 97.273, kg, 08/29/20 5:30:00 CDT, Weight pantoprazol 2021-0 Yes 40 mg = 1 M emoria e 40 mg 4-09 tab, PO, l oral 15:27: Daily, # [place] enteric 00 30 tab, 0 coated Refill(s), tablet Pharmacy: [facility], 162.56, cm, 08/29/20 5:30:00 CDT, Height, 97.273, kg, 08/29/20 5:30:00 CDT, Weight pantoprazol 2020-0 Yes 40 mg = 1 M emoria e 40 mg 4-09 tab, PO, l oral 15:27: Daily, # [place] enteric 00 30 tab, 0 coated Refill(s), tablet Pharmacy: [facility], 162.56, cm, 08/29/20 5:30:00 CDT, Height, 97.273, kg, 08/29/20 5:30:00 CDT, Weight pantoprazol 2020-0 No 40 mg = 1 M emoria e 40 mg 4-09 tab, PO, l oral 15:26: Daily, # [place] enteric 00 30 tab, 0 coated Refill(s) tablet sucralfate 2020-0 Yes 1 gm = 1 Mem oria 1 g oral 4-09 tab, PO, l tablet 15:26: Q12H, # 28 Skylar nn 00 tab, 0 Refill(s), Pharmacy: [facility], 162.56, cm, 08/29/20 5:30:00 CDT, Height, [...] Skylar nn 00 tab, 0 Refill(s), Pharmacy: [facility], 162.56, cm, 08/29/20 5:30:00 CDT, Height, 97.273, kg, 08/29/20 5:30:00 CDT, Weight pantoprazol 1-0 No 40 mg = 1 M emoria e 40 mg 4-09 tab, PO, l oral 15:26: Daily, # [place] enteric 00 30 tab, 0 coated Refill(s) tablet sucralfate 2021-0 Yes 1 gm = 1 Mem oria 1 g oral 4-09 tab, PO, l tablet 15:26: Q12H, # 28 Skylar nn 00 tab, 0 Refill(s), Pharmacy: [facility], 162.56, cm, 08/29/20 5:30:00 CDT, Height, [...] Skylar nn 00 tab, 0 Refill(s), Pharmacy: [facility], 162.56, cm, 08/29/20 5:30:00 CDT, Height, 97.273, kg, 08/29/20 5:30:00 CDT, Weight pantoprazol 2020-0 No 40 mg = 1 M emoria e 40 mg 4-09 tab, PO, l oral 15:26: Daily, # [place] enteric 00 30 tab, 0 coated Refill(s) tablet sucralfate 2020-0 Yes 1 gm = 1 Mem oria 1 g oral 4-09 tab, PO, l tablet 15:26: Q12H, # 28 Skylar nn 00 tab, 0 Refill(s), Pharmacy: [facility], 162.56, cm, 08/29/20 5:30:00 CDT, Height, [...] Skylar nn 00 tab, 0 Refill(s), Pharmacy: [facility] [id number], 162.56, cm, 08/29/20 5:30:00 CDT, Height, 97.273, [...] Skylar nn 00 tab, 0 Refill(s), Pharmacy: [facility], 162.56, cm, 08/29/20 5:30:00 CDT, Height, 97.273, kg, 08/29/20 5:30:00 CDT, Weight Saline No Notes: Memoria Flush 0.9% 4-09 (Same as: l 15:25: BD [place] 00 Posiflush) Lorazepam No Notes: Memori a 4-09 (Same as: l 15:25: Ativan) [place] Saline No Notes: Memoria Flush 0.9% 4-09 (Same as: l 15:25: BD [place] 00 Posiflush) Lorazepam No Notes: Memori a 4-09 (Same as: l 15:25: Ativan) [place] Saline No Notes: Memoria Flush 0.9% 4-09 (Same as: l 15:25: BD [place] 00 Posiflush) Saline No Notes: Memoria Flush 0.9% 4-09 (Same as: l 15:25: BD [place] 00 Posiflush) Lorazepam No Notes: Memori a 4-09 (Same as: l 15:25: Ativan) Marty Lorazepam No Notes: Memori a 4-09 (Same as: l 15:25: Ativan) [place] Saline No Notes: [facility] Flush 0.9% 4-09 (Same as: l 15:25: BD [place] 00 Posiflush) Lorazepam No Notes: Memori a 4-09 (Same as: l 15:25: Ativan) Saline No Notes: [facility] Flush 0.9% 4-09 (Same as: l 15:25: BD Posiflush) Lorazepam No Notes: Memori a 4-09 (Same as: l 15:25: Ativan) Saline No Notes: [facility]oria Flush 0.9% 4-09 (Same as: l 15:25: BD Posiflush) Lorazepam No Notes: Memori a 4-09 [...] Memori a 08-29 Route: l 14:01: IVP, [place] 00 Q5Min, Dosing Weight 97.273, kg, PRN [...] oria ne 08-29 Route: l 14:01: IVP, [place] 00 Q5Min, Dosing Weight 97.273, kg, PRN Pain Score 7-10, Start date: 08/29/20 9:01:00 CDT, Duration: 4 doses or times, Stop date: Limited # of times Flumazenil 1-0 No 0.2 mg, Caesar lisa 08-29 Route: l 14:01: IVP, PRN, [place] 00 Dosing Weight 97.273, kg, PRN Benzodiaze pine Reversal, Initial dose, Start date: 08/29/20 9:01:00 CDT, Duration: 30 day, Stop date: 09/28/20 9:00:00 CDT Naloxone 1-0 No 0.4 mg, Memori a 08-29 Route: l 14:01: IVP, [place] 00 Q2MIN, Dosing Weight 97.273, kg, PRN Narcotic Reversal, Start date: 08/29/20 9:01:00 CDT, Duration: 8 doses or times, Stop date: Limited # of times Ondansetron 1-0 No 4 mg, Memor ia 08-29 Route: l 14:01: IVP, ONCE, [place] 00 Dosing Weight 97.273, kg, PRN Nausea & Vomiting, Start date: 08/29/20 9:01:00 CDT Labetalol 1-0 No 10 mg, Memori a 08-29 Route: l 14:01: IVP, [place] 00 Q5Min, Dosing Weight 97.273, kg, PRN [...] ia 08-29 Route: l 14:01: IVP, ONCE, [place] 00 Dosing Weight 97.273, kg, PRN Nausea [...] of times Flumazenil 2020-0 No 0.2 mg, Ceasar lisa 08-29 Route: l 14:01: IVP, PRN, [place] 00 Dosing Weight 97.273, kg, PRN Benzodiaze [...] Memori a 08-29 Route: l 14:01: IVP, [place] 00 Q5Min, Dosing Weight 97.273, kg, PRN Elevated BP, Start date: 08/29/20 9:01:00 CDT, Duration: 5 doses or times, Stop date: Limited # of times Acetaminoph 2021-0 No 1,000 mg, M emoria en 08-29 Route: PO, l 14:01: Drug form: [place] 00 TAB, ONCE, Dosing Weight 97.273, kg, [...] Memori a 08-29 Route: l 14:01: IVP, [place] 00 Q5Min, Dosing Weight 97.273, kg, PRN Elevated BP, Start date: 08/29/20 9:01:00 CDT, Duration: 5 doses or times, Stop date: Limited # of times Acetaminoph 2021-0 No 1,000 mg, M emoria en 08-29 Route: PO, l 14:01: Drug form: [place] 00 TAB, ONCE, Dosing Weight 97.273, kg, [...] ia 08-29 Route: l 14:01: IVP, ONCE, [place] 00 Dosing Weight 97.273, kg, PRN Nausea [...] ia 08-29 Route: l 14:01: IVP, ONCE, [place] 00 Dosing Weight 97.273, kg, PRN Nausea & Vomiting, Start date: 08/29/20 9:01:00 CDT Labetalol 1-0 No 10 mg, Memori a 08-29 Route: l 14:01: IVP, [place] 00 Q5Min, Dosing Weight 97.273, kg, PRN [...] ia 08-29 Route: l 14:01: IVP, ONCE, [place] 00 Dosing Weight 97.273, kg, PRN Nausea & Vomiting, Start date: 08/29/20 9:01:00 CDT Labetalol 1-0 No 10 mg, Memori a 08-29 Route: l 14:01: IVP, [place] 00 Q5Min, Dosing Weight 97.273, kg, PRN [...] oria ne 08-29 Route: l 14:01: IVP, [place] 00 Q5Min, Dosing Weight 97.273, kg, PRN [...] Drug form: l 10 13:15: INJ, Start [place] microgram 00 date: 08/29/20 8:15:00 CDT, Stop date: 08/29/20 9:15:00 CDT norepinephr 2020-0 No Route: IV, Memoria ine (ANES) 08-29 Drug form: l 10 13:15: INJ, Start [place] microgram 00 date: 08/29/20 8:15:00 CDT, Stop [...] Drug form: l 10 13:15: INJ, Start [place] microgram date: 08/29/20 8:15:00 CDT, Stop date: 08/29/20 9:15:00 CDT norepinephr 2020-0 No Route: IV, Memoria ine (ANES) 08-29 Drug form: l 10 13:15: INJ, Start [place] microgram 00 date: 08/29/20 8:15:00 CDT, Stop date: 08/29/20 9:15:00 CDT norepinephr 2020-0 No Route: IV, Memoria ine (ANES) 08-29 Drug form: l 10 13:15: INJ, Start [place] microgram 00 date: 08/29/20 8:15:00 CDT, Stop date: 08/29/20 9:15:00 CDT Sodium 2020-0 No Route: IV, Memor ia Chloride 08-29 Total l 0.9% IV 12:30: Volume: [place] (ANES) 1000 00 1,000, mL Start date: 08/29/20 7:30:00 CDT, Stop date: 08/29/20 8:30:00 CDT Sodium 2021-0 No Route: IV, Memor ia Chloride 4-09 Total l 0.9% IV 12:30: Volume: Marty (ANES) 1000 00 1,000, mL Start date: 08/29/20 7:30:00 CDT, Stop date: 08/29/20 8:30:00 CDT Sodium 2021-0 No Route: IV, Memor ia Chloride 4-09 Total l 0.9% IV 12:30: Volume: [place] (ANES) 1000 00 1,000, mL Start date: 08/29/20 7:30:00 CDT, Stop date: 08/29/20 8:30:00 CDT Sodium 2021-0 No Route: IV, Memor ia Chloride 4-09 Total l 0.9% IV 12:30: Volume: [place] (ANES) 1000 00 1,000, mL Start date: 08/29/20 7:30:00 CDT, Stop date: 08/29/20 8:30:00 CDT Sodium 2021-0 No Route: IV, Memor ia Chloride 4-09 Total l 0.9% IV 12:30: Volume: [place] (ANES) 1000 00 1,000, mL Start date: [...] PO, l Hydrochlori 11:42: Q24H, # 30 [place] de 150 MG 00 tab, 0 Extended Refill(s) Release Tablet 24 HR Yes 150 mg = 1 Memori a Bupropion 4-09 tab, PO, l Hydrochlori 11:42: Q24H, # 30 [place] de 150 MG 00 tab, 0 Extended Refill(s) Release Tablet 24 HR Yes 150 mg = 1 Memori a Bupropion 4-09 tab, PO, l Hydrochlori 11:42: Q24H, # 30 [place] de 150 MG 00 tab, 0 Extended Refill(s) Release Tablet 24 HR 2020-0 Yes 150 mg = 1 Memori a Bupropion 4-09 tab, PO, l Hydrochlori 11:42: Q24H, # 30 [place] de 150 MG 00 tab, 0 Extended Refill(s) Release Tablet 24 HR 2020-0 Yes 150 mg = 1 Memori a Bupropion 4-09 tab, PO, l Hydrochlori 11:42: Q24H, # 30 [place] de 150 MG 00 tab, 0 Extended Refill(s) Release Tablet 24 HR 0 Yes 150 mg = 1 Memori a Bupropion 4-09 tab, PO, l Hydrochlori 11:42: Q24H, # 30 Marty de 150 MG 00 tab, 0 Extended Refill(s) Release Tablet apixaban 5 2020-0 Yes 5 mg, PO, Me moria MG Oral 4- Q12H, tab, l Tablet 11:41: 0 [place] [Eliquis] 00 Refill(s), For Atrial Fibrilatio n apixaban 2020-0 Yes 5 mg, PO, Me moria MG Oral 4- Q12H, tab, l Tablet 11:41: 0 Marty [Eliquis] 00 Refill(s), For Atrial Fibrilatio n apixaban 5 2020-0 Yes 5 mg, PO, Me moria MG Oral 4- Q12H, tab, l Tablet 11:41: 0 [place] [Eliquis] 00 Refill(s), For Atrial Fibrilatio n apixaban 5 2020-0 Yes 5 mg, PO, Me moria MG Oral 4- Q12H, tab, l Tablet 11:41: 0 [place] [Eliquis] 00 Refill(s), For Atrial Fibrilatio n apixaban 5 2020-0 Yes 5 mg, PO, Me moria MG Oral 4- Q12H, tab, l Tablet 11:41: 0 [place] [Eliquis] 00 Refill(s), For Atrial Fibrilatio n apixaban 5 2020-0 Yes 5 mg, PO, Me moria MG Oral 4- Q12H, tab, l Tablet 11:41: 0 [place] [Eliquis] 00 Refill(s), For Atrial Fibrilatio n apixaban 5 Yes 5 mg, PO, Me moria MG Oral 4-09 Q12H, tab, l Tablet 11:41: 0 [place] [Eliquis] 00 Refill(s), For Atrial Fibrilatio n AMIODarone Yes 200 mg = 1 M emoria 200 mg oral 4-09 tab, PO, l tablet 11:38: Daily, # [place] 00 90 tab, 3 Refill(s) AMIODarone 0 Yes 200 mg = 1 M emoria 200 mg oral 4-09 tab, PO, l tablet 11:38: Daily, # [place] 00 90 tab, 3 Refill(s) AMIODarone 0 [...] tab, PO, l tablet 11:38: Daily, # [place] 00 90 tab, 3 Refill(s) AMIODarone 0 Yes 200 mg = 1 M emoria 200 mg oral 4-09 tab, PO, l tablet 11:38: Daily, # Marty 00 90 tab, 3 Refill(s) AMIODarone 0 Yes 200 mg = 1 M emoria 200 mg oral 4-09 tab, PO, l tablet 11:38: Daily, # [place] 00 90 tab, 3 Refill(s) normal No [...] 5 0 Yes [facility] mg tablet 08-16 [facility]: [facility] l Eliquis 5 0 Yes [facility] mg tablet 08-16 00:00: [facility] [...] tablet 08-16 00:00: [facility] 00 l apixaban 2020-0 Yes 5mg Take 5 mg Univ ers (ELIQUIS) 5 17 by mouth 2 it y of mg tablet 08:18: (two) [place] 30 times Medical daily. Branch amiodarone Yes [...] of mcg/actuati 00:00: [place] on inhaler 00 [facility] Branch albuterol 2019-0 Yes Univers 90 4-14 [...] COVID-19 2020-07-23 Completed [facility] MRNA VACCINATION 00:00:00 [facility] PFIZER COVID-19 2020-07-23 Completed [facility] MRNA VACCINATION 00:00:00 [facility] PFIZER COVID-19 2020-07-23 Completed [facility] MRNA VACCINATION 00:00:00 [facility] PFIZER COVID-19 2020-07-23 Completed [facility] MRNA VACCINATION 00:00:00 [facility] PFIZER COVID-19 2020-07-23 Completed [facility] MRNA VACCINATION 00:00:00 [facility] PFIZER COVID-19 2020-07-23 Completed [facility] MRNA VACCINATION 00:00:00 [facility] PEG COVID-19 2020-07-23 Completed [facility] MRNA VACCINATION 00:00:00 [facility] COVID-19 2020-07-02 Completed [facility] MRNA VACCINATION 00:00:00 [facility] COVID-19 2020-07-02 Completed [facility] MRNA VACCINATION 00:00:00 [facility] COVID-19 2020-07-02 Completed [facility] MRNA VACCINATION 00:00:00 [facility] PFIZER COVID-19 2020-07-02 Completed [facility] MRNA VACCINATION 00:00:00 [facility] PFIZER COVID-19 2020-07-02 Completed [facility] MRNA VACCINATION 00:00:00 [facility] PFIZER COVID-19 2020-07-02 Completed [facility] MRNA VACCINATION 00:00:00 [facility] PFIZER COVID-19 2020-07-02 Completed [facility] MRNA VACCINATION 00:00:00 [facility] Influenza Virus 2017-03-08 Completed Universit y of Vaccine 00:00:00 [facility] Influenza Virus 2017-03-08 Completed Universit y of Vaccine 00:00:00 [facility] Influenza Virus 2017-03-08 Completed Universit y of Vaccine 00:00:00 [facility] Influenza Virus 2017-03-08 Completed Universit y of Vaccine 00:00:00 [facility] Influenza Virus 2017-03-08 Completed Universit y of Vaccine 00:00:00 [facility] Influenza Virus 2017-03-08 Completed Universit y of Vaccine 00:00:00 [facility] Influenza Virus 2014-01-30 Completed Universit y of Vaccine (3+ yrs) 00:00:00 [facility] Pneumococcal 13 2014-01-30 Completed Universit y of Conjugate, PCV13 00:00:00 [facility] dical (Prevnar 13) Branch Influenza Virus 2014-01-30 Completed Universit y of Vaccine (3+ yrs) 00:00:00 [facility] Pneumococcal 13 2014-01-30 Completed Universit y of Conjugate, PCV13 00:00:00 [facility] dical (Prevnar 13) Branch Influenza Virus 2014-01-30 Completed Universit y of Vaccine (3+ yrs) 00:00:00 [facility] [place] [facility] Pneumococcal 13 2014-01-30 Completed Universit y of Conjugate, PCV13 00:00:00 [facility] dical (Prevnar 13) Branch Influenza Virus 2014-01-30 Completed Universit y of Vaccine (3+ yrs) 00:00:00 [facility] [place] [facility] Pneumococcal 13 2014-01-30 Completed Universit y of Conjugate, PCV13 00:00:00 [facility] dical (Prevnar 13) Branch Influenza Virus 2014-01-30 Completed Universit y of Vaccine (3+ yrs) 00:00:00 [facility] Pneumococcal 13 2014-01-30 Completed Universit y of Conjugate, PCV13 00:00:00 [facility] dical (Prevnar 13) Branch Influenza Virus 2014-01-30 Completed Universit y of Vaccine (3+ yrs) 00:00:00 [facility] dical Branch Pneumococcal 13 2014-01-30 Completed Universit y of Conjugate, PCV13 00:00:00 [facility] dical (Prevnar 13) Branch Pneumococcal 2012-02-16 Completed University o f Polysaccharide, 00:00:00 [place] [facility] PPSV23 (PNEUMOVAX) Branch Influenza Virus 2012-02-16 Completed Universit y of Vaccine 00:00:00 [facility] PPD (TB) 2012-02-16 Completed University of 00:00:00 [facility] Pneumococcal 2012-02-16 Completed University o f Polysaccharide, 00:00:00 [place] [facility] PPSV23 (PNEUMOVAX) Branch Influenza Virus 2012-02-16 Completed Universit y of Vaccine 00:00:00 [facility] PPD (TB) 2012-02-16 Completed University of 00:00:00 [facility] Pneumococcal 2012-02-16 Completed University o f Polysaccharide, 00:00:00 [place] [facility] PPSV23 (PNEUMOVAX) Branch Influenza Virus 2012-02-16 Completed Universit y of Vaccine 00:00:00 [facility] PPD (TB) 2012-02-16 Completed University of 00:00:00 [facility] Pneumococcal 2012-02-16 Completed University o f Polysaccharide, 00:00:00 [place] [facility] PPSV23 (PNEUMOVAX) Branch Influenza Virus 2012-02-16 Completed Universit y of Vaccine 00:00:00 [facility] PPD (TB) 2012-02-16 Completed University of 00:00:00 [facility] Pneumococcal 2012-02-16 Completed University o f Polysaccharide, 00:00:00 [place] [facility] PPSV23 (PNEUMOVAX) Branch Influenza Virus 2012-02-16 Completed Universit y of Vaccine 00:00:00 [facility] PPD (TB) 2012-02-16 Completed University of 00:00:00 [facility] Pneumococcal 2012-02-16 Completed University o f Polysaccharide, 00:00:00 [place] [facility] PPSV23 (PNEUMOVAX) Branch Influenza Virus 2012-02-16 Completed Universit y of Vaccine 00:00:00 [facility] PPD (TB) 2012-02-16 Completed University [...] 2011-09-01 Completed Unive rsity of Dosage 00:00:00 [place] [facility] Hep B, Adol or Pedi 2011-09-01 Completed Unive rsity of Dosage 00:00:00 [facility] Hep B, Adol or Pedi 2011-03-17 Completed Unive rsity of Dosage 00:00:00 [facility] Hep B, Adol or Pedi 2011-03-17 Completed Unive rsity of Dosage 00:00:00 [facility] Hep B, Adol or Pedi 2011-03-17 Completed Unive rsity of Dosage 00:00:00 [facility] Hep B, Adol or Pedi 2011-03-17 Completed Unive rsity of Dosage 00:00:00 [facility] Hep B, Adol or Pedi 2011-03-17 Completed Unive rsity of Dosage 00:00:00 [place] [facility] Hep B, Adol or Pedi 2011-03-17 Completed Unive rsity of Dosage 00:00:00 [facility] Influenza Virus 2011-02-10 Completed Universit y of Vaccine 00:00:00 [place] [facility] Hep B, Adol or Pedi 2011-02-10 Completed Unive rsity of Dosage 00:00:00 [facility] Influenza Virus 2011-02-10 Completed Universit y of Vaccine 00:00:00 [facility] Hep B, Adol or Pedi 2011-02-10 Completed Unive rsity of Dosage 00:00:00 [facility] Influenza Virus 2011-02-10 Completed Universit y of Vaccine 00:00:00 [facility] Hep B, Adol or Pedi 2011-02-10 Completed Unive rsity of Dosage 00:00:00 [facility] Influenza Virus 2011-02-10 Completed Universit y of Vaccine 00:00:00 [facility] Hep B, Adol or Pedi 2011-02-10 Completed Unive rsity of Dosage 00:00:00 [facility] Influenza Virus 2011-02-10 Completed Universit y of Vaccine 00:00:00 [facility] Hep B, Adol or Pedi 2011-02-10 Completed Unive rsity of Dosage 00:00:00 [facility] Influenza Virus 2011-02-10 Completed Universit y of Vaccine 00:00:00 [facility] Hep B, Adol or Pedi 2011-02-10 Completed Unive rsity of Dosage 00:00:00 [facility] PPD (TB) 2010-11-18 Completed University of 00:00:00 [facility] TDAP (ADACEL) 2010-11-18 Completed University of VACCINE 00:00:00 [facility] PPD (TB) 2010-11-18 Completed University of 00:00:00 [facility] TDAP (ADACEL) 2010-11-18 Completed University of VACCINE 00:00:00 [facility] PPD (TB) 2010-11-18 Completed University of 00:00:00 [facility] TDAP (ADACEL) 2010-11-18 Completed University of VACCINE 00:00:00 [facility] PPD (TB) 2010-11-18 Completed University of 00:00:00 [facility] TDAP (ADACEL) 2010-11-18 Completed University of VACCINE 00:00:00 [facility] PPD (TB) 2010-11-18 Completed University of 00:00:00 [facility] TDAP (ADACEL) 2010-11-18 Completed University of VACCINE 00:00:00 [facility] PPD (TB) 2010-11-18 Completed University of 00:00:00 [facility] TDAP (ADACEL) 2010-11-18 Completed University of VACCINE 00:00:00 [facility] HEPATITIS A 2004-03-02 Completed University of 00:00:00 [facility] HEPATITIS A 2004-03-02 Completed University of 00:00:00 [facility] HEPATITIS A 2004-03-02 Completed University of 00:00:00 [facility] HEPATITIS A 2004-03-02 Completed University of 00:00:00 [facility] HEPATITIS A 2004-03-02 Completed University of 00:00:00 [facility] HEPATITIS A 2004-03-02 Completed University of 00:00:00 [facility] HEPATITIS A 2003-08-01 Completed University of 00:00:00 [facility] HEPATITIS A 2003-08-01 Completed University of 00:00:00 [facility] HEPATITIS A 2003-08-01 Completed University of 00:00:00 [facility] HEPATITIS A 2003-08-01 Completed University of 00:00:00 [facility] HEPATITIS A 2003-08-01 Completed University of 00:00:00 [facility] HEPATITIS A 2003-08-01 Completed University of 00:00:00 [facility] Pneumococcal 2001-10-04 Completed University o f Polysaccharide, 00:00:00 [place] [facility] PPSV23 (PNEUMOVAX) Branch PPD (TB) 2001-10-04 Completed University of 00:00:00 [facility] Pneumococcal 2001-10-04 Completed University o f Polysaccharide, 00:00:00 [place] [facility] PPSV23 (PNEUMOVAX) Branch PPD (TB) 2001-10-04 Completed University of 00:00:00 [facility] Pneumococcal 2001-10-04 Completed University o f Polysaccharide, 00:00:00 [place] [facility] PPSV23 (PNEUMOVAX) Branch PPD (TB) 2001-10-04 Completed University of 00:00:00 [facility] Pneumococcal 2001-10-04 Completed University o f Polysaccharide, 00:00:00 [place] [facility] PPSV23 (PNEUMOVAX) Branch PPD (TB) 2001-10-04 Completed University of 00:00:00 [facility] Pneumococcal 2001-10-04 Completed University o f Polysaccharide, 00:00:00 [place] [facility] PPSV23 (PNEUMOVAX) Branch PPD (TB) 2001-10-04 Completed University of 00:00:00 [facility] Pneumococcal 2001-10-04 Completed University o f Polysaccharide, 00:00:00 [place] [facility] PPSV23 (PNEUMOVAX) Branch PPD (TB) 2001-10-04 Completed University of 00:00:00 [facility] Vital Signs Vital Name Observation Time Observation Value Comments Source Systolic blood 2021-12-13 06:39:53 170 mm[Hg] Univer sity of pressure [facility] Diastolic blood 2021-12-13 06:39:53 96 mm[Hg] Unive rsity of pressure [facility] Heart rate 2021-12-13 06:39:53 60 /min [facility] Respiratory rate 2021-12-13 06:39:53 18 /min [facility] ersity of [place] [facility] Oxygen saturation in 2021-12-13 06:39:53 98 /min University of Arterial blood by [facility] Pulse oximetry Branch Body temperature 2021-12-13 04:57:00 36.56 Amina [facility] ersity [facility] [place] [facility] Body height 2021-12-13 04:57:00 162.6 cm [facility] [place] [facility] Body weight 2021-12-13 04:57:00 90.719 kg [facility] [place] [facility] BMI 2021-12-13 04:57:00 34.33 kg/m2 [facility] [place] [facility] Systolic blood 2021-08-21 13:13:00 191 mm[Hg] Univer sity of pressure [facility] Diastolic blood 2021-08-21 13:13:00 99 mm[Hg] Unive rsity of [facility] [place] Heart rate 2021-08-21 13:13:00 52 /min [facility] [place] [facility] Body temperature 2021-08-21 13:11:00 36.5 Amina [facility] ersity [facility] [place] Respiratory rate 2021-08-21 13:11:00 16 /min [facility] [place] [facility] Body height 2021-08-21 13:11:00 162.6 cm [facility] [place] [facility] Body weight 2021-08-21 13:11:00 93.759 kg [facility] [place] [facility] BMI 2021-08-21 13:11:00 35.48 kg/m2 [facility] [place] [facility] Oxygen saturation in 2021-08-21 13:11:00 95 /min University of Arterial blood by [facility] Pulse oximetry Branch Systolic blood 2021-07-14 15:18:00 142 mm[facility]Hg[facility] Diastolic blood 2021-07-14 15:18:00 76 mm[facility]Hg] [facility] Heart rate 2021-07-14 15:18:00 61 [facility] 2021-07-14 15:18:00 [facility]6 [facility] Body weight 2021-07-14 15:18:00 [facility]802 [facility] BMI 2021-07-14 15:18:00 35.87 [facility]m2 [facility] Systolic blood 2020-12-08 15:48:00 125 mm[Hg] Method [facility] pressure Diastolic blood 2020-12-08 15:48:00 76 mm[Hg] [facility] pressure Heart rate 2020-12-08 15:48:00 64 /min [facility] Body temperature 2020-12-08 15:48:00 36.61 Amina [facility] Respiratory rate 2020-12-08 15:48:00 17 /min [facility] Body height 2020-12-08 15:48:[address] [facility] Body weight 2020-12-08 15:48:[address] [facility] BMI 2020-12-08 15:48:00 37.42 kg/m2 [facility] Oxygen saturation in 2020-12-08 15:48:00 97 /min [facility] Arterial blood by Pulse oximetry Respitory Rate 2020-08-30 13:00:00 Memori al [place] Systolic (mm Hg) 2020-08-30 13:00:00 Caesar rial [place] Diastolic (mm Hg) 2020-08-30 13:00:00 Mem orial [place] Systolic (mm Hg) 2020-08-30 11:00:00 Caesar rial [place] Diastolic (mm Hg) 2020-08-30 11:00:00 Mem orial [place] Temperature Oral (F) 2020-08-30 11:00:00 98.4 F [facility] [place] Respitory Rate 2020-08-30 11:00:00 Memori al [place] Respitory Rate 2020-08-30 10:00:00 Memori al [place] Systolic (mm Hg) 2020-08-30 10:00:00 Caesar rial [place] Diastolic (mm Hg) 2020-08-30 10:00:00 Mem orial [place] Temperature Oral (F) 2020-08-30 00:00:00 96.9 F [facility] [place] Temperature Oral (F) 2020-08-29 11:26:00 97.6 F [facility] [place] Height 2020-08-29 10:30:00 162.56 cm [facility] Marty Weight 2020-08-29 10:30:00 [facility] [place] BMI Calculated 2020-08-29 10:30:00 Memori al [place] Procedures Procedure Date / Time Performing Clinician Source Performed MEDICATION CORRESPONDENCE 2022-01-06 05:01:00 Doctor Unassigned, [facility] MEDICATION CORRESPONDENCE 2021-12-25 05:01:00 Doctor Unassigned, [facility] Name [facility] CT CERVICAL SPINE WO 2021-12-13 05:48:16 Bill Guo [facility] CONTRAST [facility] CT HEAD WO CONTRAST 2021-12-13 05:48:16 Bill Guo [facility] ty [facility] CT LUMBAR SPINE WO 2021-12-13 05:48:16 Bill Guo [facility] y [facility] CONTRAST [facility] CT THORACIC SPINE WO 2021-12-13 05:48:16 iBll Guo [facility] CONTRAST [facility] ECG 12-LEAD 2021-07-14 15:14:[address] [facility] [id number] 2021-06-17 00:00:00 [facility] Clear [facility] GASTROINTESTINAL PANEL 2020-12-08 22:21:00 Jailyn [facility] XR ABDOMEN 1 VW 2020-12-08 18:06:32 Eliseo Arce [facility] [place] < 1 HOUR 2020-09-05 22:39:00 Eliseo Arce [facility] SURGICAL PATHOLOGY REQUEST 2020-09-05 21:54:00 [facility] CHEST 1 VW PORTABLE 2020-09-05 19:55:00 Eliseo Arce [facility] DISCHARGE PATIENT 2020-09-05 17:27:55 Lucas Harris [facility] [place] AN ELECTIVE 2020-09-05 16:47:23 [facility], INTRAOPERATIVE 2020-09-05 16:27[facility]00 [facility] 2020-09-05 15:04:00 Sarai Maharaj [facility] TIME (PTT) M. PROTHROMBIN TIME WITH INR 2020-09-05 15:04:00 Mindy Maharaj [facility] M. Plan of Care Planned Activity Planned Date Details Comments Source Future Scheduled 2022-01-29 SHINGLES VACCINES (1 Met [facility] Test 14:07:20 of 2) [code = SHINGLES VACCINES (1 of 2)] Future Scheduled 2022-01-29 BREAST CANCER [facility] Test 14:07:20 SCREENING [code = BREAST CANCER SCREENING] Future Scheduled 2022-01-29 COLONOSCOPY SCREENING [facility] Test 14:07:20 [code = COLONOSCOPY SCREENING] Future Scheduled 2022-01-29 HEPATITIS B VACCINES [facility] Test 14:07:20 (1 of 3 - Risk 3-dose series) [code = HEPATITIS B VACCINES (1 of 3 - Risk 3-dose series)] Future Scheduled 2022-01-29 COVID-19 VACCINE (3 - [facility] Test 14:07:20 Booster for Pfizer series) [code = COVID-19 VACCINE (3 - Booster for Pfizer series)] Future Scheduled 2022-01-29 65+ PNEUMOCOCCAL [facility] Test 14:07:20 VACCINE (4 - PPSV23 or PCV20) [code = 65+ PNEUMOCOCCAL VACCINE (4 - PPSV23 or PCV20)] Future Scheduled 2022-01-29 INFLUENZA VACCINE Method [facility] Test 14:07:20 [code = INFLUENZA VACCINE] Future Scheduled 2022-01-29 SHINGLES VACCINES (1 Met [facility] Test 14:07:20 of 2) [code = SHINGLES VACCINES (1 of 2)] Future Scheduled 2022-01-29 BREAST CANCER [facility] Test 14:07:20 SCREENING [code = BREAST CANCER SCREENING] Future Scheduled 2022-01-29 COLONOSCOPY SCREENING [facility] Test 14:07:20 [code = COLONOSCOPY SCREENING] Future Scheduled 2022-01-29 HEPATITIS B VACCINES [facility] Test 14:07:20 (1 of 3 - Risk 3-dose series) [code = HEPATITIS B VACCINES (1 of 3 - Risk 3-dose series)] Future Scheduled 2022-01-29 COVID-19 VACCINE (3 - [facility] Test 14:07:20 Booster for Pfizer series) [code = COVID-19 VACCINE (3 - Booster for Pfizer series)] Future Scheduled 2022-01-29 65+ [facility] Test 14:07:20 VACCINE (4 - PPSV23 or PCV20) [code = 65+ PNEUMOCOCCAL VACCINE (4 - PPSV23 or PCV20)] Future Scheduled 2022-01-29 INFLUENZA VACCINE Method [facility] Test 14:07:20 [code = INFLUENZA VACCINE] Future Scheduled 2022-01-29 SHINGLES VACCINES (1 [facility] Test 14:07:20 of 2) [code = SHINGLES VACCINES (1 of 2)] Future Scheduled 2022-01-29 BREAST CANCER [facility] Test 14:07:20 SCREENING [code = BREAST CANCER SCREENING] Future Scheduled 2022-01-29 COLONOSCOPY SCREENING [facility] Test 14:07:20 [code = COLONOSCOPY SCREENING] Future Scheduled 2022-01-29 HEPATITIS B VACCINES [facility] Test 14:07:20 (1 of 3 - Risk 3-dose series) [code = HEPATITIS B VACCINES (1 of 3 - Risk 3-dose series)] Future Scheduled 2022-01-29 COVID-19 VACCINE (3 - [facility] Test 14:07:20 Booster for Pfizer series) [code = COVID-19 VACCINE (3 - Booster for Pfizer series)] Future Scheduled 2022-01-29 65+ [facility]CCAL [facility] Test 14:07:20 VACCINE (4 - PPSV23 or PCV20) [code = 65+ PNEUMOCOCCAL VACCINE (4 - PPSV23 or PCV20)] Future Scheduled 2022-01-29 INFLUENZA VACCINE Method [facility] Test 14:07:20 [code = INFLUENZA VACCINE] Future Scheduled 2022-01-20 SHINGLES VACCINES (1 [facility] Test 06:12:34 of 2) [code = SHINGLES VACCINES (1 of 2)] Future Scheduled 2022-01-20 Screening for [facility] Test 06:12:34 malignant neoplasm of cervix (procedure) [code = 610846939] Future Scheduled 2022-01-20 BREAST CANCER [facility] Test 06:12:34 SCREENING [code = BREAST CANCER SCREENING] Future Scheduled 2022-01-20 COLONOSCOPY SCREENING [facility] Test 06:12:34 [code = COLONOSCOPY SCREENING] Future Scheduled 2022-01-20 HEPATITIS B VACCINES [facility] Test 06:12:34 (1 of 3 - Risk 3-dose series) [code = HEPATITIS B VACCINES (1 of 3 - Risk 3-dose series)] Future Scheduled 2022-01-20 COVID-19 VACCINE (3 - [facility] Test 06:12:34 Booster for Pfizer series) [code = COVID-19 VACCINE (3 - Booster for Pfizer series)] Future Scheduled 2022-01-20 65+ PNEUMOCOCCAL [facility] Test 06:12:34 VACCINE (4 - PPSV23 or PCV20) [code = 65+ PNEUMOCOCCAL VACCINE (4 - PPSV23 or PCV20)] Future Scheduled 2022-01-20 INFLUENZA VACCINE Method [facility] Test 06:12:34 [code = INFLUENZA VACCINE] Future Scheduled 2022-01-16 SHINGLES VACCINES (1 [facility] Test 12:09:25 of 2) [code = SHINGLES VACCINES (1 of 2)] Future Scheduled 2022-01-16 Screening for [facility] Test 12:09:25 malignant neoplasm of cervix (procedure) [code = [id number]] Future Scheduled 2022-01-16 BREAST CANCER [facility] Test 12:09:25 SCREENING [code = BREAST CANCER SCREENING] Future Scheduled 2022-01-16 COLONOSCOPY SCREENING [facility] Test 12:09:25 [code = COLONOSCOPY SCREENING] Future Scheduled 2022-01-16 HEPATITIS B VACCINES [facility] Test 12:09:25 (1 of 3 - Risk 3-dose series) [code = HEPATITIS B VACCINES (1 of 3 - Risk 3-dose series)] Future Scheduled 2022-01-16 COVID-19 VACCINE (3 - [facility] Test 12:09:25 Booster for Pfizer series) [code = COVID-19 VACCINE (3 - Booster for Pfizer series)] Future Scheduled 2022-01-16 65+ PNEUMOCOCCAL [facility] Test 12:09:25 VACCINE (4 - PPSV23 or PCV20) [code = 65+ PNEUMOCOCCAL VACCINE (4 - PPSV23 or PCV20)] Future Scheduled 2022-01-16 INFLUENZA VACCINE Method [facility] Test 12:09:25 [code = INFLUENZA VACCINE] Future Scheduled 2022-01-14 SHINGLES VACCINES (1 [facility] Test 04:11:46 of 2) [code = SHINGLES VACCINES (1 of 2)] Future Scheduled 2022-01-14 Screening for [facility] Test 04:11:46 malignant neoplasm of cervix (procedure) [code = [id number]] Future Scheduled 2022-01-14 BREAST CANCER [facility] Test 04:11:46 SCREENING [code = BREAST CANCER SCREENING] Future Scheduled 2022-01-14 COLONOSCOPY SCREENING [facility] Test 04:11:46 [code = COLONOSCOPY SCREENING] Future Scheduled 2022-01-14 HEPATITIS B VACCINES [facility] Test 04:11:46 (1 of 3 - Risk 3-dose series) [code = HEPATITIS B VACCINES (1 of 3 - Risk 3-dose series)] Future Scheduled 2022-01-14 COVID-19 VACCINE (3 - [facility] Test 04:11:46 Booster for Pfizer series) [code = COVID-19 VACCINE (3 - Booster for Pfizer series)] Future Scheduled 2022-01-14 65+ PNEUMOCOCCAL [facility] Test 04:11:46 VACCINE (4 - PPSV23 or PCV20) [code = 65+ PNEUMOCOCCAL VACCINE (4 - PPSV23 or PCV20)] Future Scheduled 2022-01-14 INFLUENZA VACCINE Method [facility] Test 04:11:46 [code = INFLUENZA VACCINE] Future Scheduled 2021-08-26 Screening for [facility] Test 13:02:23 malignant neoplasm of cervix (procedure) [code = [id number]] Future Scheduled 2021-08-26 BREAST CANCER [facility] Test 13:02:23 SCREENING [code = BREAST CANCER SCREENING] Future Scheduled 2021-08-26 COLONOSCOPY SCREENING [facility] Test 13:02:23 [code = COLONOSCOPY SCREENING] Future Scheduled 2021-08-26 Screening for [facility] Test 13:02:23 malignant neoplasm of lung (procedure) [code = 183159260] Future Scheduled 2021-08-26 SHINGLES VACCINES (#1) [facility] Test 13:02:23 [code = SHINGLES VACCINES (#1)] Future Scheduled 2021-08-26 COVID-19 VACCINE (3 - [facility] Test 13:02:23 Pfizer risk 4-dose series) [code = COVID-19 VACCINE (3 - Pfizer risk 4-dose series)] Future Scheduled 2021-08-26 65+ PNEUMOCOCCAL [facility] Test 13:02:23 VACCINE (4 of 4 - PPSV23) [code = 65+ PNEUMOCOCCAL VACCINE (4 of 4 - PPSV23)] Future Scheduled 2021-08-26 INFLUENZA VACCINE [facility] Test 13:02:23 [code = INFLUENZA VACCINE] Encounters Start End Encounter Admission Attending Care Care Encounter Source Date/Time Date/Time Type Type Clinicians Facility Department ID 2021-11-16 Outpatient [facility] [id number] [place] 10:32:47 [id number] [facility] 2021-07-14 Outpatient PANKAJ [facility] [id number] [place] 09:33:51 ELAN [facility] 2022-02-26 2022-02-[address] [facility] [id number] Univers 08:30:00 08:30:00 [facility] [id number]22-02-[address] [facility] [id number] Univers 08:30:00 08:30:00 SANTIAGO [facility] 2022-01-30 2022-01-30 Telephone [facility] 1.2.840.114 [id number] Univers 00:00:00 00:00:00 [facility] 350.1.13.10 i ty of [facility] [place] [id number] [facility] [address] 2022-01-06 2022-01-06 Orders Doctor FERMIN 1.2.840.114 [id number] Univers 00:00:00 00:00:00 Only Unassigned, JACKELINE 350.1.13.10 [facility]y [facility] [place] [facility] 4.2.7.2.686 [place] as [id number] [facility] [address] 2021-12-25 2021-12-25 Orders Doctor FERMIN 1.2.840.114 [id number] Univers 00:00:00 00:00:00 Only Unassigned, JACKELINE 350.1.13.10 [facility] [place] [facility] 4.2.7.2.686 Yomi as [id number] [facility] [address] 2021-12-12 2021-12-13 Emergency X Bill GUO [facility] ERT [id number] Univers 23:53:00 01:52:00 ity [facility] 2021-12-12 2021-12-13 Emergency Bill Guo [facility] 1.2.840.114 [id number] Univers 23:53:00 01:52:00 Kiersten BULLOCK 350.1.13.10 i ty of [place] [id number] [facility] [address] 2021-11-20 2021-11-20 Health Advisor [facility]ERSIT 1.2.840.114 [id number] Univers 09:45:00 10:00:00 Visit Santiago Cardenas [facility] 350.1.13.10 ity of [place] [id number] [facility] [address] 2021-11-20 2021-11-20 [facility] [id number] Univers 09:45:00 09:45:00 SANTIAGO [facility] 2021-11-20 2021-11-20 Outpatient [facility] [id number] Univers 09:45:00 09:45:00 [id number] [facility] 2021-08-21 2021-08-21 [facility] 1.2.556.435 [id number] Univers 08:30:00 09:00:00 [facility] 350.1.13.10 i ty of [facility] [place] [id number] [facility] [address] 2021-08-05 2021-08-05 Inpatient WINTER Leal OUTD [id number] [facility] 05:24:00 05:24:[address] 2021-07-14 2021-07-14 Office KIMBERLEY Lira 6400 1.2.840.114 13 [id number] [place] 08:45:00 09:34:[address] 350.1.13.58 Health 9.2.7.2.686 [id number] 1 2021-07-09 2021-07-09 Telephone KIMBERLEY Layton 6400 1.2.840.114 [id number] [place] 00:00:00 00:00:[address] 350.1.13.58 Health 9.2.7.2.686 [id number] 1 2021-06-17 2021-06-17 Inpatient WINTER Leal INTE.02 [id number] [facility] 10:56:00 14:36:00 Mike 47 [facility] 2021-04-28 2021-04-28 Telephone Jailyn, 1.2.840.7 [id number] Methodi 00:00:00 00:00:[address] 3.430.2.7 Hospit a .3.554036 l .8 2021-04-28 2021-04-28 Telephone Jailyn, 1.2.840.7 [id number] Methodi 00:00:00 00:00:[address] 3.430.2.7 Hospit a .3.940681 l .8 2021-03-31 2021-03-31 Orders Carol Ann, 1.2.840.1 [id number] Methodi 00:00:00 00:00:00 Only Sarai Corbin. 31196.1.1 979 s t 3.430.2.7 Hospit a .3.595119 l .8 2021-03-31 2021-03-31 Orders Carol Ann, 1.2.840.1 [id number] Methodi 00:00:00 00:00:00 Only Sarai Corbin. 32056.1.1 979 s t 3.430.2.7 Hospit a .3.368298 l .8 2021-03-24 2021-03-24 Telephone Jailyn, 1.2.840.7 [id number] 21 [id number] Methodi 00:00:00 00:00:[address] 3.430.2.7 Hospit a .3.490392 l .8 2021-03-24 2021-03-24 Telephone Jailyn 1.2.840.5 [id number] Methodi 00:00:00 00:00:[address] 3.430.2.7 Hospit a .3.285457 l .8 2021-01-19 2021-01-19 Telephone Prabhu 1.2.840.1 [id number] 2099 807150 Methodi 00:00:00 00:00:[address] 3.430.2.7 Hospit a .3.972477 l .8 2020-12-12 2020-12-12 Office Ap, [facility] 6400 1.2.840.114 12 [id number] 07:42:02 08:18:[address] 350.1.13.58 9.2.7.2.686 [id number] 1 2020-12-09 2020-12-09 [facility], 1.2.840.1 [id number] Methodi 00:00:00 00:00:00 Sarai Lieberman 30865.1.1 316 s t 3.430.2.7 Hospit a .3.595414 l .8 2020-12-08 2020-12-08 [facility], 1.2.840.1 [id number] 2099 [id number] Methodi 12:35:54 23:59:00 Encounter Ray 61596.1.[address] 3.430.2.7 Hospit a .3.663849 l .8 2020-12-08 2020-12-08 [facility], 1.2.840.1 [id number] 82528 47649 Methodi 17:25:00 17:30:[address] 3.430.2.7 Hospit a .3.527222 l .8 2020-12-08 2020-12-08 [facility] 1.2.840.1 [id number] 51083 Methodi 10:30:00 11:39:56 Visit Ray 29524.1.[address] 3.430.2.7 Hospit a .3.415655 l .8 2020-12-08 2020-12-08 Travel 1.2.840.1 1.2.912.571 1760 774689 Methodi 00:00:00 00:00:[address] 3.430.2.7 0.2.7.3.698 Ho spita .3.539613 084.8 l .8 2020-12-02 2020-12-02 Health Advisor [facility] 1.2.840.114 [id number] 10:20:06 10:36:19 Visit Y HEALTH 350.1.13.10 CLINICS 4.2.7.2.686 [id number] 316 2020-11-25 2020-11-25 Office [facility] 1.2.840.114 [id number] 11:06:30 11:58:14 Visit Devina R TRADING ASSISTANT 350.1.13.10 [facility] 4.2.7.2.686 MATERNAL [id number] & CHILD 107 [facility] 2020-11-25 2020-11-25 [facility] 1.2.682.199 1301 4592 00:00:00 00:00:00 [facility] 350.1.13.10 CLINICS 4.2.7.2.686 [id number] 089 2020-11-25 2020-11-25 Telephone [facility] 1.2.889.311 3800 0821 00:00:00 00:00:00 Rosnda R TRADING ASSISTANT 350.1.13.10 REGIONAL 4.2.7.2.686 MATERNAL [id number] & CHILD 107 [facility] 2020-11-14 2020-11-14 Abstract Clark, 1.2.840.1 [id number] 79220 82816 Methodi 00:00:00 00:00:[address] 3.430.2.7 Hospit a .3.256569 l .8 2020-11-14 2020-11-14 Telephone Clark 1.2.840.1 [id number] 2100 810062 Methodi 00:00:00 00:00:[address] 3.430.2.7 Hospit a .3.733162 l .8 2020-11-07 2020-11-07 Telephone KIMBERLEY Ortiz 6400 1.2.840.114 124 [id number] 00:00:00 00:00:[address] 350.1.13.58 9.2.7.2.686 [id number] 1 2020-10-27 2020-10-27 Telephone Jailyn, 1.2.840.8 [id number] Methodi 00:00:00 00:00:[address] 3.430.2.7 Hospit a .3.934625 l .8 2020-10-24 2020-10-24 Telephone Clark, 1.2.840.1 [id number] 2099 [id number] Methodi 00:00:00 00:00:[address] 3.430.2.7 Hospit a .3.826082 l .8 2020-10-06 2020-10-12 [facility], 1.2.840.1 [id number] Methodi 15:30:00 00:08:46 ne Ray 43054.1.[address] 3.430.2.7 Hospit a .3.359890 l .8 2020-09-30 2020-09-30 Telephone Jailyn, 1.2.840.6 [id number] Methodi 00:00:00 00:00:[address] 3.430.2.7 Hospit a .3.522032 l .8 2020-09-21 2020-09-21 [facility] 1.2.840.1 1.2.403.769 6318 097731 Methodi 00:00:00 00:00:[address] 3.430.2.7 0.2.7.3.698 Ho spita .3.448217 084.8 l .8 2020-09-06 2020-09-06 Hospital 1.2.840.1 [id number] 74867 Methodi 17:42:30 23:59:[address] 3.430.2.7 Hospit a .3.113805 l .8 2020-09-06 2020-09-06 [facility], 1.2.840.1 [id number] 2099 [id number] Methodi 16:50:00 17:41:00 Encounter Ray [address]351.1.[address] 3.430.2.7 Hospit a .3.954188 l .8 2020-09-05 2020-09-05 [facility], 1.2.840.1 [id number] 2099 [id number] Methodi 09:17:00 19:45:00 Encounter Ray [address].1.[address] 3.430.2.7 Hospit a .3.910996 l .8 2020-09-05 2020-09-05 Surgery [facility], 1.2.840.1 [id number] 09552 Methodi 11:30:00 13:15:[address] 3.430.2.7 Hospit a .3.051355 l .8 2020-09-05 2020-09-05 Anesthesia Remigio, 1.2.840.1 [id number] 967 [id number] Methodi 11:27:00 12:20:00 Event Kirit 80605.1.1 243 s t V. 3.430.2.7 Hospit a .3.896467 l .8 2020-09-05 2020-09-05 Travel 1.2.840.1 1.2.711.557 4689 063508 Methodi 00:00:00 00:00:[address] 3.430.2.7 0.2.7.3.698 Ho spita .3.403225 084.8 l .8 2020-09-04 2020-09-04 Telephone Meisenbach, 1.2.840.1 [id number] Methodi 00:00:00 00:00:00 Sarai Lieberman 04797.1.1 762 s t 3.430.2.7 Hospit a .3.416418 l .8 2020-09-02 2020-09-02 Telephone [place]bach, 1.2.840.2 [id number] Methodi 00:00:00 00:00:00 Sarai Lieberman 52478.1.1 344 s t 3.430.2.7 Hospit a .3.784703 l .8 2020-08-29 2020-08-30 Bedded [facility] [id number] 275 [facility] 10:20:00 14:10:00 Outpatient r [place] 00 l [facility] 2020-08-29 2020-08-30 Outpatient [facility] CAR [address] [facility] 05:20:00 09:10:00 [place] Results Test Description Test Time Test Comments Results Result Comments Source Novel Coronavirus 2018 Inhouse 2021-08-03 18:08:00 Test Item Value Reference Range Interpretation Comme nts Novel Coronavirus 2018 Negative Negative Posit bruno results are indicative of the Inhouse (test code = presenc e dkXFYH-UdQ-2 RNA, clinical COVNONPUI) correlation wit h patient [...] qualitative detection of nucleic acid s from fneXGXQ-SmE-7 virus and diagn osis of SARS-CoV-2 virusinfection. It is an Emergency Use Authorization ( EUA) testauthorized by the U.S. FDA. BASIC METABOLIC [id number] 09:37:00 Test Item Value Reference Range Interpretation [...] = 9.0 mg/dL 8.0-10.5 N CA) PROTHROMBIN [id number] 09:32:00 Test Item Value Reference Range Interpretation [...] (to prevent recurrent infar ct). 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 [facility] - XR CHEST 1 [id number] 00:00:00 [facility] : 1955 Sex: F FAX: RobinUrmilaBibiana DanielFrancisco H [phone] [place]: St: ADM FAX: Mike Scales MD [phone] FAX: Bahman Chopra [phone] Name: LIO WATTS [facility] : 1955 Age/S: 66/F [address] [place], [place] [address]vd Unit #: [id number] Loc: [place] [address] Phys: Bahman ChopraP Acct: [id number] Dis Date: Status: ADM IN PHONE #: [phone] Exam Date: 06/17/2021 1320 FAX #: [phone] Reason: WATCHMAN EXAMS: CPT CODE: [id number] XR CHEST 1 V 23311 PROCEDURE INFORMATION: Exam: XR Chest Exam date [...] Chopra Technologist: RT Taylor(R) Trnscrd Date/Time/By: 06/17/2021 (7573) : By: Susanna Orig Print D/T: S: 06/17/2021 (6090) PAGE 1 Signed ReportCOVID 19 Asymptomatic IH AG 2021-06-16 12:29:00 Test Item Value Reference Range Interpretation Comments COVID 19 Asymptomatic Negative Negative A neg ative result is IH AG (test code = presumpti ve and should COVNONPUIAG) be confirmedwit h an FDA authorized mole cular assay, if neces lucille forpatient tamara garcia.A positive result does [...] high or waivedcomplexit y tests. BASIC METABOLIC [id number] 11:37:00 Test Item Value Reference Range Interpretation [...] code = 9.0 mg/dL 8.0-10.5 N CA) [id number] 11:37:00 Test Item Value Reference Range Interpretation Comments PREALBUMIN (test code = PREALB) 24.3 mg/dL 16.0-40.0 N PROTHROMBIN [id number] 11:03:00 Test Item Value Reference Range Interpretation [...] (to prevent recurrent infar ct). CBC W/AUTO [id number] 10:59:00 Test Item Value Reference Range Interpretation [...] 0.0-0.1 N NRBC#) - XR CHEST 2 [id number] 00:00:00 [facility] : 1955 Sex: F FAX: Carmenza Kelly DO [phone] [place]: St: PRE FAX: Mike Scales MD [phone] Name: LIO WATTS [place] [facility] : 1955 Age/S: 66/F [address] [place] [address] Unit #: [id number] Loc: [place] [address] Phys: Mike Lund MD Acct: [id number] Dis Date: Status: PRE SDC PHONE #: [phone] Exam Date: 06/16/2021 1120 FAX #: [phone] Reason: PREOP EXAMS: CPT CODE: [id number] XR CHEST 2 V 93588 PROCEDURE INFORMATION: Exam: XR Chest Exam date [...] Technologist: Danielle Nix RT(R) Trnscrd Date/Time/By: 06/16/2021 (0510) : By: [email or web address] Orig Print D/T: S: 06/16/2021 (8942) PAGE 1 Signed ReportGastrointestinal [id number] 04:35:05 Test Item Value Reference Interpretation Comments [...] Rotavirus PCR (test Not Detected code = 1932301) Salmonella PCR (test Not Detected code = [...] PCR Not Detected (test code = 7124) [facility] [id number] 19:30:47 Test Item Value Reference Range Interpretation Comments Case number (test [id number] code = 6809869) Surgical pathology See link below for PDF report (test code = Lab Report 2255) Result status (test This is Supplemental code = 0459291) Report for [id number] [id number] 16:31:00 Test Item Value Reference Range Interpretation Comments POC Activated Clotting Time (test code 153 s = POC Activated Clotting Time) [facility]bmrctfPQFMNRTXLU0740-18-78 16:31:00 Test Item Value Reference Range Interpretation Comments POC Activated Clotting Time (test code 153 s = POC Activated Clotting Time) [facility] CenterJomycstGORDHMIOGJ8539-71-19 16:31:00 Test Item Value Reference Range Interpretation Comments POC Activated Clotting Time (test code 153 s = POC Activated Clotting Time) [facility] CenterNwpyxkoFTFRZULUDK3039-11-54 16:31:00 Test Item Value Reference Range Interpretation Comments POC Activated Clotting Time (test code 153 s = POC Activated Clotting Time) [facility] CenterAitkamnUOVFYXRKAU1657-02-91 16:31:00 Test Item Value Reference Range Interpretation Comments POC Activated Clotting Time (test code 153 s = POC Activated Clotting Time) [id number] 16:31:00 Test Item Value Reference Range Interpretation Comments POC Activated Clotting Time (test code 153 s = POC Activated Clotting Time) [facility] CenterFzryprdJEAPVXODEQ2294-71-09 16:31:00 Test Item Value Reference Range Interpretation Comments POC Activated Clotting Time (test code 153 s = POC Activated Clotting Time) [facility] [id number] 14:37:00 Test Item Value Reference Range Interpretation Comments POC Activated Clotting Time (test code 454 s = POC Activated Clotting Time) [facility] [id number] 14:37:00 Test Item Value Reference Range Interpretation Comments POC Activated Clotting Time (test code 454 s = POC Activated Clotting Time) [facility] [id number] 14:37:00 Test Item Value Reference Range Interpretation Comments POC Activated Clotting Time (test code 454 s = POC Activated Clotting Time) [facility] [id number] 14:37:00 Test Item Value Reference Range Interpretation Comments POC Activated Clotting Time (test code 454 s = POC Activated Clotting Time) [facility] CenterUoqtcxfPODUSVFRBR8688-29-65 14:37:00 Test Item Value Reference Range Interpretation Comments POC Activated Clotting Time (test code 454 s = POC Activated Clotting Time) [facility] [id number] 14:37:00 Test Item Value Reference Range Interpretation Comments POC Activated Clotting Time (test code 454 s = POC Activated Clotting Time) [facility] [id number] 14:37:00 Test Item Value Reference Range Interpretation Comments POC Activated Clotting Time (test code 454 s = POC Activated Clotting Time) [facility]MllgmcgNSDHIEXSPJ8213-93-92 14:13:00 Test Item Value Reference Range Interpretation Comments POC Activated Clotting Time (test code 354 s = POC Activated Clotting Time) [facility]OekmamoHNITPYTQFO9830-03-22 14:13:00 Test Item Value Reference Range Interpretation Comments POC Activated Clotting Time (test code 354 s = POC Activated Clotting Time) [facility] CenterGduhmwcFVMJRSHFPE6316-70-04 14:13:00 Test Item Value Reference Range Interpretation Comments POC Activated Clotting Time (test code 354 s = POC Activated Clotting Time) [place] 375371-04-09 14:13:00 Test Item Value Reference Range Interpretation Comments POC Activated Clotting Time (test code 354 s = POC Activated Clotting Time) [facility] RockBiwxribLMVGPVXCHE7306-64-12 14:13:00 Test Item Value Reference Range Interpretation Comments POC Activated Clotting Time (test code 354 s = POC Activated Clotting Time) [facility]amgkQFEUOMGPDS2888-78-84 14:13:00 Test Item Value Reference Range Interpretation Comments POC Activated Clotting Time (test code 354 s = POC Activated Clotting Time) [facility] RockFgaxqlyYPXOQIPIMI9160-30-38 14:13:00 Test Item Value Reference Range Interpretation Comments POC Activated Clotting Time (test code 354 s = POC Activated Clotting Time) [facility] BANK VKQROII9600-02-08 10:37:00Negative (08/29/20 5:37 AM) [facility] HermannCHEM RWLOB0077-18-38 10:37:54335Ifazmgah HermannCHEM PANEL 2020-08-29 10:37:0028[facility] HermannCHEM GSZCI5947-19-97 10:37:001.01[facility] HermannCHEM OFFQS2233-92-03 10:37:08584Qstcnmqz HermannCHEM NXGHT9929-14-35 10:37:003.8[facility] HermannCHEM TGWFQ3476-74-02 10:37:75379Xllolhcu HermannCHEM XOXEE9077-46-60 10:37:0028[facility] HermannCHEM BQDQZ4485-59-61 10:37:009.8 [facility] HermannCHEM PABBJ4781-09-73 10:37:0011.8[facility] HermannCHEM PANEL 2020-08-29 10:37:0059[facility] HermannCHEM NEPBB4854-50-81 10:37:002.9[facility] RxwtqpiDSSWJVNLHS3467-16-96 10:37:006.8[facility] XgbmqruAXVZLRLHHI4663-15-07 10:37:004.47[facility] JctshymFFSSHEJSCF1809-26-20 10:37:0010.6[facility] EOURDBKMIT0058-09-03 10:37:0034.0[facility] YhbbrbuLWZPSLPCAG8581-60-15 10:37:00 76.1[facility] KfaivmxEAFUCEAHSA0267-95-41 10:37:00 Test Item Value Reference Range Interpretation Comments MCH (test code = MCH) 23.8 pg 27.0-31.0 [facility] HxnqpxbAKFJZBEPOS1303-54-17 10:37:0031.3[facility] HermannHEMATOLOGY 2020-08-29 10:37:0018.2[facility] PoohufgQZRSJLXXEK2325-41-83 10:37:36216Hvoyemdu AftirdfSBYXMTUIKH4320-17-15 10:37:007.5[facility] KlrfkpmESOTVUQPXB4256-88-48 10:37:00 Test Item Value Reference Range Interpretation Comments PT (test code = PT) 12.8 s 12.0-14.7 [facility] IvwupbhBQDHUCTUAP4714-35-70 10:37:00 Test Item Value Reference Range Interpretation Comments INR (test code = INR) 0.97 1 0.85-1.17 [facility] RdnptlrWDDCHMPNOU5925-98-81 10:37:00 Test Item Value Reference Range Interpretation Comments PTT (test code = PTT) 25.0 s 22.9-35.8 [facility] DbjnrxoQVSLCUPOVQ6471-33-23 10:37:0070.5[facility] HermannHEMATOLOGY 2020-08-29 10:37:0018.8[facility] NancdpvDLCQIAUIAQ4254-45-33 10:37:009.5[facility] FluxpvkVMWNJJCREZ0208-19-53 10:37:000.9[facility] DsjigbmHTPYDXLLAJ5123-97-65 10:37:000.3[facility] FxarvxvXTLIDPZFMX1084-63-68 10:37:004.8[facility] DHEHGVMRQF4415-70-17 10:37:001.3[facility] AnpavukMXDLAEZFHK9906-13-91 10:37:000.6 [facility] GddhqpeKFOEZZIZBN8561-49-14 10:37:000.1[facility] HermannHEMATOLOGY 2020-08-29 10:37:001+ *ABN*(08/29/20 5:37 AM)[facility] YvrbjekBWHIZXRXFF6080-19-45 10:37:00Not Detected (08/29/20 5:37 AM)[facility] HermannBLOOD BANK RESULTS 2020-08-29 10:37:00Negative (08/29/20 5:37 AM)[facility] HermannCHEM UTSOU8978-66-85 10:37:89353Xeftgpws HermannCHEM UBQMC5977-37-23 10:37:0028[facility] HermannCHEM ULJLO8216-98-09 10:37:001.01[facility] HermannCHEM LYQDM6151-93-10 10:37:57752 [facility] HermannCHEM YOHJU7770-71-05 10:37:003.8[facility] HermannCHEM PANEL 2020-08-29 10:37:83902Tyeungtz HermannCHEM KTVMA5050-58-11 10:37:0028[facility] HermannCHEM PRMPW0956-73-36 10:37:009.8[facility] HermannCHEM RUQPF8517-83-45 10:37:0011.8[facility] HermannCHEM OJQNV7238-19-49 10:37:0059[facility] HermannCHEM XGCWU9844-93-61 10:37:002.9[facility] ZadvbzkGQFHLVFROO0977-02-00 10:37:006.8 [facility] JijvamcFGLQSOYOXF6921-38-57 10:37:004.47[facility] HermannHEMATOLOGY 2020-08-29 10:37:0010.6[facility] XylhsuvHTSQUZRIAA7592-90-25 10:37:0034.0[facility] EvckunvFNVTRQUBWE8570-83-44 10:37:0076.1[facility] JdylcyxXVOIVLTHAJ9039-91-61 10:37:00 Test Item Value Reference Range Interpretation Comments MCH (test code = MCH) 23.8 pg 27.0-31.0 [facility] YwnnorqYBUQPCIXDR3685-16-07 10:37:0031.3[facility] HermannHEMATOLOGY 2020-08-29 10:37:0018.2[facility] AnnkargEDBAYMKZDG2515-96-62 10:37:14281Swedflok MttlztqOTJQZENFZU1442-95-17 10:37:007.5[facility] HxfqiheDBQIBUKRHM5967-86-17 10:37:00 Test Item Value Reference Range Interpretation Comments PT (test code = PT) 12.8 s 12.0-14.7 [facility] QksdnlyRXFJWYJWVZ3263-57-89 10:37:00 Test Item Value Reference Range Interpretation Comments INR (test code = INR) 0.97 1 0.85-1.17 [facility] IxzhvpsZKQEECIIHE7758-33-62 10:37:00 Test Item Value Reference Range Interpretation Comments PTT (test code = PTT) 25.0 s 22.9-35.8 [facility] LtvlglfUPGGBCUBUZ5234-16-56 10:37:0070.5[facility] HermannHEMATOLOGY 2020-08-29 10:37:0018.8[facility] VtpytbsAUCXRZTNIU1993-90-21 10:37:009.5[facility] YbhwplhSFBQJZEZAH7198-63-85 10:37:000.9[facility] JykptrgROBMAJEMHN4651-46-05 10:37:000.3[facility] XhlvcmmENYFXOPOPU6534-34-13 10:37:004.8[facility] LNMIBYKFFD6779-46-81 10:37:001.3[facility] LrfywtcHJBHPJOICQ6118-61-20 10:37:000.6 [facility] GegspqoQREFEYLBYH3639-14-12 10:37:000.1[facility] HermannHEMATOLOGY 2020-08-29 10:37:001+ *ABN*(08/29/20 5:37 AM)[facility] NdrscloIDHEKVSMMA3107-25-92 10:37:00Not Detected (08/29/20 5:37 AM)[facility] HermannBLOOD BANK RESULTS 2020-08-29 10:37:00Negative (08/29/20 5:37 AM)[facility] HermannCHEM EFIJI7297-75-43 10:37:46792Obbbnoxi HermannCHEM KQSVJ4535-25-72 10:37:0028[facility] HermannCHEM AXUUO1838-60-66 10:37:001.01[facility] HermannCHEM XMXSS0752-12-36 10:37:79465 [facility] HermannCHEM GBMDP9056-98-67 10:37:003.8[facility] HermannCHEM PANEL 2020-08-29 10:37:06594Fawqwson HermannCHEM PNWAU9190-35-67 10:37:0028[facility] HermannCHEM CWWYG7683-84-99 10:37:009.8[facility] HermannCHEM YAXGO8604-90-66 10:37:0011.8[facility] HermannCHEM TJNJS3093-43-68 10:37:0059[facility] HermannCHEM DDYMT5785-61-91 10:37:002.9[facility] HnpvechGVBXJXJKRO7363-25-31 10:37:006.8 [facility] TgiamztSRVBHVJEQQ0452-10-17 10:37:004.47[facility] HermannHEMATOLOGY 2020-08-29 10:37:0010.6[facility] HpzgjngHDELVOZZGG0795-85-80 10:37:0034.0[facility] JsvknucTUWUPCPHUK7337-89-61 10:37:0076.1[facility] YcbrpkbSJQKDKLEUI6658-06-17 10:37:00 Test Item Value Reference Range Interpretation Comments MCH (test code = MCH) 23.8 pg 27.0-31.0 [facility] XcskrjmPUUTKHDQZJ4769-62-85 10:37:0031.3[facility] HermannHEMATOLOGY 2020-08-29 10:37:0018.2[facility] UikqlacADHJYFRMEL4956-06-30 10:37:24225Dutfwnqo EifvfmkHDBLYYQUHS6874-17-43 10:37:007.5[facility] NaankycEWLSBKHBVL7267-42-45 10:37:00 Test Item Value Reference Range Interpretation Comments PT (test code = PT) 12.8 s 12.0-14.7 [facility] CtyndmcPYPNLZOXWK7119-45-57 10:37:00 Test Item Value Reference Range Interpretation Comments INR (test code = INR) 0.97 1 0.85-1.17 [facility] QgowojdYIVAKUNTKU2483-76-35 10:37:00 Test Item Value Reference Range Interpretation Comments PTT (test code = PTT) 25.0 s 22.9-35.8 [facility] XjjbabwIFRPISDLEN4204-63-69 10:37:0070.5[facility] HermannHEMATOLOGY 2020-08-29 10:37:0018.8[facility] DucaypiSDZZHAWNRQ9637-63-25 10:37:009.5[facility] TdewokzKZMRCBJXDB4549-38-00 10:37:000.9[facility] ElyjaniZFUCFJMGAZ0109-81-03 10:37:000.3[facility] VsldlezDGDBPDNFKB7439-00-97 10:37:004.8[facility] ODVXGPZNUK5927-52-55 10:37:001.3[facility] ZqwgvqqCCHMNIXIIF0647-96-77 10:37:000.6 [facility] QahpygaOZQVQEENYC5204-82-23 10:37:000.1[facility] HermannHEMATOLOGY 2020-08-29 10:37:001+ *ABN*(08/29/20 5:37 AM)[facility] PiutdblCUJPPEFSYY4943-30-43 10:37:00Not Detected (08/29/20 5:37 AM)[facility] HermannBLOOD BANK RESULTS 2020-08-29 10:37:00Negative (08/29/20 5:37 AM)[facility] HermannCHEM EKQNF6734-19-15 10:37:64900Scqkzjqk HermannCHEM AACCZ8686-65-02 10:37:0028[facility] HermannCHEM WSNOZ7248-25-34 10:37:001.01[facility] HermannCHEM MLYTU2853-94-76 10:37:83592 [facility] HermannCHEM UAJYN9188-82-94 10:37:003.8[facility] HermannCHEM PANEL 2020-08-29 10:37:10282Fpxdrxpt HermannCHEM GDRTD8614-52-86 10:37:0028[facility] HermannCHEM HGYXK1312-44-04 10:37:009.8[facility] HermannCHEM TAWSE4619-84-24 10:37:0011.8[facility] HermannCHEM XGHWE0575-58-24 10:37:0059[facility] HermannCHEM TXJJE7102-78-49 10:37:002.9[facility] XousxneIRKQXVHTRT1318-30-06 10:37:006.8 [facility] NawcxvmUTYCOAIZCC2993-80-53 10:37:004.47[facility] HermannHEMATOLOGY 2020-08-29 10:37:0010.6[facility] LceunksBDKFJICSRX0774-64-95 10:37:0034.0[facility] YpvhuaoDAIDJOKSRM5085-14-24 10:37:0076.1[facility] VuhfykbFQUNCXFQNM6494-69-11 10:37:00 Test Item Value Reference Range Interpretation Comments MCH (test code = MCH) 23.8 pg 27.0-31.0 [facility] BbthkhaZMZAMGUMQR8498-62-39 10:37:0031.3[facility] HermannHEMATOLOGY 2020-08-29 10:37:0018.2[facility] YhxaqjeTCKSIUMYUD7050-84-62 10:37:72758Nyrhpxzp DcntflcBLWQVICAOA2829-66-21 10:37:007.5[facility] UwsxsnuOWKFONBNIW3515-93-94 10:37:00 Test Item Value Reference Range Interpretation Comments PT (test code = PT) 12.8 s 12.0-14.7 [facility] RplzqfvUGWCTPIAQT6006-03-41 10:37:00 Test Item Value Reference Range Interpretation Comments INR (test code = INR) 0.97 1 0.85-1.17 [facility] XzohbluZOUUEEMAPT2618-08-48 10:37:00 Test Item Value Reference Range Interpretation Comments PTT (test code = PTT) 25.0 s 22.9-35.8 [facility] VohqvtpJERZDDQOTN1616-89-27 10:37:0070.5[facility] HermannHEMATOLOGY 2020-08-29 10:37:0018.8[facility] MtkijpxHVOEWGRMFB8023-24-47 10:37:009.5[facility] JnaeubfOPNOYQGNFK6858-01-53 10:37:000.9[facility] RudtnoyBTCIKNFNRZ5739-71-59 10:37:000.3[facility] WhmylaeVYGWQKCPQD2647-82-48 10:37:004.8[facility] LZGGHLUAVM2951-26-87 10:37:001.3[facility] NoypsbzVPQMMKPSCB5359-04-11 10:37:000.6 [facility] WxitmrrKQPQBCLBZO4840-43-41 10:37:000.1[facility] HermannHEMATOLOGY 2020-08-29 10:37:001+ *ABN*(08/29/20 5:37 AM)[facility] KddcdpfPYDMNUSIIY8170-17-38 10:37:00Not Detected (08/29/20 5:37 AM)[facility] HermannBLOOD BANK RESULTS 2020-08-29 10:37:00Negative (08/29/20 5:37 AM)[facility] HermannCHEM UMSLY7218-72-34 10:37:54000Kedwpswl HermannCHEM IHDYQ2821-36-22 10:37:0028[facility] HermannCHEM OSEEW9016-97-46 10:37:001.01[facility] HermannCHEM FAZUK1232-66-01 10:37:30541 [facility] HermannCHEM TKQOF1995-05-83 10:37:003.8[facility] HermannCHEM PANEL 2020-08-29 10:37:10920Jrpmgrsn HermannCHEM FQJXX7409-07-36 10:37:0028[facility] HermannCHEM HZFRI8793-43-87 10:37:009.8[facility] HermannCHEM AJYHA3811-61-18 10:37:0011.8[facility] HermannCHEM KBPDN1167-85-17 10:37:0059[facility] HermannCHEM WNLXC2888-46-92 10:37:002.9[facility] LjnmjnuVOWNPLNNSR6507-32-82 10:37:006.8 [facility] PrqslzeERAURWLHFP8057-57-84 10:37:004.47[facility] HermannHEMATOLOGY 2020-08-29 10:37:0010.6[facility] ZshmhccODZFMAUJOI4563-19-03 10:37:0034.0[facility] UpdillcRJIRZMSPZZ4992-12-48 10:37:0076.1[facility] EhryfwkOVLEBSYSVU3226-54-35 10:37:00 Test Item Value Reference Range Interpretation Comments MCH (test code = MCH) 23.8 pg 27.0-31.0 [facility] ChbfqfqIQVKFOASVG5653-92-25 10:37:0031.3[facility] HermannHEMATOLOGY 2020-08-29 10:37:0018.2[facility] NlbagydQAKRLACRAG2773-70-25 10:37:77024Zsxapljx XthgoxdGMFKCZXKEZ3430-05-36 10:37:007.5[facility] ZfazxcxMEIDDHEIVS8396-14-46 10:37:00 Test Item Value Reference Range Interpretation Comments PT (test code = PT) 12.8 s 12.0-14.7 [facility] QitmtykCXPRIXQWWA1532-15-06 10:37:00 Test Item Value Reference Range Interpretation Comments INR (test code = INR) 0.97 1 0.85-1.17 [facility] CgzwimcHRIXOXIWPF9076-90-23 10:37:00 Test Item Value Reference Range Interpretation Comments PTT (test code = PTT) 25.0 s 22.9-35.8 [facility] UicanmmJYVRMLRNGF5052-27-01 10:37:0070.5[facility] HermannHEMATOLOGY 2020-08-29 10:37:0018.8[facility] TocptsxFCDKNLJFHE7313-25-64 10:37:009.5[facility] JafmhenUMVGXTLKTF9442-92-02 10:37:000.9[facility] DozepdkHBSYQFSNCE9783-32-47 10:37:000.3[facility] NetuwesEDHPTFIGQD1464-63-61 10:37:004.8[facility] YKRWXBELLK3663-62-44 10:37:001.3[facility] YdohfzrCCHZFAABMT5517-42-58 10:37:000.6 [facility] HjeturrMCZVKFAHUU7049-43-45 10:37:000.1[facility] HermannHEMATOLOGY 2020-08-29 10:37:001+ *ABN*(08/29/20 5:37 AM)[facility] OtfqpgzVAVHNHICRN2427-85-72 10:37:00Not Detected (08/29/20 5:37 AM)[facility] HermannBLOOD BANK RESULTS 2020-08-29 10:37:00Negative (08/29/20 5:37 AM)[facility] HermannCHEM ZKQDA9338-89-71 10:37:85355Goidamev HermannCHEM KGRNG9325-43-03 10:37:0028[facility] HermannCHEM OUCUX3451-67-29 10:37:001.01[facility] HermannCHEM PAIMI3370-04-04 10:37:83013 [facility] HermannCHEM CMSGZ1624-37-15 10:37:003.8[facility] HermannCHEM PANEL 2020-08-29 10:37:60925Zvuigzyr HermannCHEM HMKKU8410-62-20 10:37:0028[facility] HermannCHEM FHSAF3572-14-42 10:37:009.8[facility] HermannCHEM UYQUJ5388-02-49 10:37:0011.8[facility] HermannCHEM FDEBI8709-65-06 10:37:0059[facility] HermannCHEM KOPHS1555-92-58 10:37:002.9[facility] GnovdpzQQHIDGEQLD6522-48-37 10:37:006.8 [facility] ZvtqrymLMZONFCJPL6613-33-12 10:37:004.47[facility] HermannHEMATOLOGY 2020-08-29 10:37:0010.6[facility] VslaotlSMJWZHTEGC1313-06-19 10:37:0034.0[facility] NwwtnfpEHTCVXOVFX5661-51-02 10:37:0076.1[facility] WtxmyssLNATQRGVQO0384-05-95 10:37:00 Test Item Value Reference Range Interpretation Comments MCH (test code = MCH) 23.8 pg 27.0-31.0 [facility] AnqibddELQQVNXIIL0877-73-53 10:37:0031.3[facility] HermannHEMATOLOGY 2020-08-29 10:37:0018.2[facility] EdhgdakGJVMBCQCVC8262-64-50 10:37:35518Ejyyjvpe KwgihkyAFWHKXZCEM3474-73-58 10:37:007.5[facility] JuvjufsOSYJSPUTNC0083-41-11 10:37:00 Test Item Value Reference Range Interpretation Comments PT (test code = PT) 12.8 s 12.0-14.7 [facility] WxvuxdyKPOTUVTUHR5602-48-15 10:37:00 Test Item Value Reference Range Interpretation Comments INR (test code = INR) 0.97 1 0.85-1.17 [facility] DrrbuvbELPCABFBFB1559-18-22 10:37:00 Test Item Value Reference Range Interpretation Comments PTT (test code = PTT) 25.0 s 22.9-35.8 [facility] WnmartaBYCIYPMOCL5871-62-40 10:37:0070.5[facility] HermannHEMATOLOGY 2020-08-29 10:37:0018.8[facility] PspwsgnSNVLUKYYDB1438-01-88 10:37:009.5[facility] HjrjsalQZGQJWEXLZ7290-13-10 10:37:000.9[facility] QkpxnnaWSFEVRLFSZ7551-04-29 10:37:000.3[facility] PsawliwYJSLXUSKGO0293-99-14 10:37:004.8[facility] RXEGYKPFCC0181-06-97 10:37:001.3[facility] NrxvdquKBRWPJWVVM6766-92-11 10:37:000.6 [facility] HowlhmmMCDDGKSPRR3196-75-86 10:37:000.1[facility] HermannHEMATOLOGY 2020-08-29 10:37:001+ *ABN*(08/29/20 5:37 AM)[facility] OoqxtguGGKDASSSMY1397-54-23 10:37:00Not Detected (08/29/20 5:37 AM)[facility] HermannBLOOD BANK RESULTS 2020-08-29 10:37:00Negative (08/29/20 5:37 AM)[facility] HermannCHEM WRLKR8081-20-45 10:37:05852Czipthvc HermannCHEM GNCDT0506-25-72 10:37:0028[facility] HermannCHEM CDGVH0451-16-57 10:37:001.01[facility] HermannCHEM DODWR2743-79-00 10:37:26583 [facility] HermannCHEM FOWDQ3916-83-47 10:37:003.8[facility] HermannCHEM PANEL 2020-08-29 10:37:96539Jojbghon HermannCHEM DETYI2285-90-71 10:37:0028[facility] HermannCHEM EOOAK2989-81-08 10:37:009.8[facility] HermannCHEM TIIUI5055-46-29 10:37:0011.8[facility] HermannCHEM MFMXF1496-67-14 10:37:0059[facility] HermannCHEM NBIBK4193-86-61 10:37:002.9[facility] BghlvypJZKFBZNHEN9129-73-06 10:37:006.8 [facility] FhbgtskYPWVWCSDCV7362-28-82 10:37:004.47[facility] HermannHEMATOLOGY 2020-08-29 10:37:0010.6[facility] ZtvbezoDVYZQALFZQ4859-65-13 10:37:0034.0[facility] BaardjfSPNOYUAGAJ5702-06-72 10:37:0076.1[facility] MmrywyfZPUQYPYIDO2733-04-67 10:37:00 Test Item Value Reference Range Interpretation Comments MCH (test code = MCH) 23.8 pg 27.0-31.0 [facility] DxcrtmcIFQUZVELUH4501-20-82 10:37:0031.3[facility] HermannHEMATOLOGY 2020-08-29 10:37:0018.2[facility] QqjqmafMPYWQJBUZR1612-32-93 10:37:31291Vrkmctgm TuvktsmVUELOGSRLM5988-24-26 10:37:007.5[facility] BupfyawKKGUGSPLKV7234-08-42 10:37:00 Test Item Value Reference Range Interpretation Comments PT (test code = PT) 12.8 s 12.0-14.7 [facility] TbfmqdxGWGEPMMJLT4694-52-96 10:37:00 Test Item Value Reference Range Interpretation Comments INR (test code = INR) 0.97 1 0.85-1.17 [facility] BqkplvwPGYWBEPIZX3707-78-98 10:37:00 Test Item Value Reference Range Interpretation Comments PTT (test code = PTT) 25.0 s 22.9-35.8 [facility] BeyuydeCPRCRDLRJK0391-37-54 10:37:0070.5[facility] HermannHEMATOLOGY 2020-08-29 10:37:0018.8[facility] PgspdpkELJJCFFOGD3026-43-23 10:37:009.5[facility] TocnpaaHUXJPLRROV3308-87-38 10:37:000.9[facility] WirbjxcCMHACIGHVB2819-19-96 10:37:000.3[facility] WwxojnnWLQFFYEDCY7209-30-58 10:37:004.8[facility] GOBKYGDWJV2772-13-88 10:37:001.3[facility] QxmsnwfFBUPXVPXGI1282-26-44 10:37:000.6 [facility] NkpmvbhYXSWIZXKYC8137-53-52 10:37:000.1[facility] HermannHEMATOLOGY 2020-08-29 10:37:001+ *ABN*(08/29/20 5:37 AM)Claude FergusonPwhxfwfTRFEDOUIPT8976-00-69 10:37:00Not Detected (08/29/20 5:37 AM)Claude LopezARMANDOA, GC, TV,PCR, IN EIAXN1549-68-57 15:38:00 Test Item Value Reference Range Interpretation Comments FT (test code = CHTR) Not detected (qualifier Not Detected N value) FT (test code = Not detected (qualifier Not Detected N NGONO) value) FT (test code = TRVG) Not detected (qualifier Not Detected N value) URINALYSIS WITH XYHUXPMERAI7857-92-95 10:57:00 Test Item Value Reference Range Interpretation Comments Color (test code = UCOLR) Dk. Yellow Clarity (test code = UCLAR) Hazy Glucose (test code = UGLUC) NEGATIVE NEGATIVE N Bilirubin (test code = UBILI) NEGATIVE NEGATIVE N Ketones (test code = UKET) NEGATIVE NEGATIVE N Specific [place] (test code = 1.025 1.005-1.030 A USPGR) [...]
[2022-02-01] MEDS ORDERED: DIPHENHYDRAMINE 50 MG/ML VIAL ONE (13:53)
[2022-02-01] MEDS ORDERED: HYDROMORPHONE HCL 1 MG/ML INJ ONE (13:54)
[2022-02-01] MEDS ORDERED: ONDANSETRON 4 MG/2 ML VIAL ONE (13:54)
[2022-02-01] MEDS ORDERED: HYDRALAZINE HCL 25 MG TABLET ONE (13:54)
[2022-02-01] MEDS ORDERED: HYDRALAZINE HCL 20 MG/ML VIAL ONE ×2 (13:54→17:17)
[2022-02-01 14:13] LABS: Troponin High Sensitivity 15.3 pg/mL (<58.9)
[2022-02-01 14:15] LABS: Potassium 4.1 mmol/L (3.5-5.1)
[2022-02-01 14:20] LABS: SARS-CoV-2 Antigen Rapid Res Negative (Negative)
[2022-02-01 15:21] LABS: Absolute Lymphocytes (CBC) 1.6 K/uL (0.7-4.9); Hematocrit 40.8 % (36.0-45.0); Lymphocytes % 24.7 % (15.3-44.8); MCV 89.1 fL (80-100); RBC Red Blood Cell Count 4.57 M/uL (3.86-4.86)
--- NOTE | 2022-02-01 16:16 | RAD REPORT ---
EXAM DESCRIPTION: Patrick Single View02/01/2022 2:51 pm CLINICAL HISTORY: Chest pain COMPARISON: January 30, 2022 FINDINGS: The lungs appear clear of acute infiltrate. The heart is mildly enlarged IMPRESSION: No acute abnormalities displayed
--- NOTE | 2022-02-01 16:43 | EDPHYS ---
Physician Documentation [facility] Name: Fawn Fleming Age: 67 yrs Sex: Female : 1955 Arrival Date: 02/01/2022 Time: 13:11 Bed 5 Private MD: ED Physician Justus Kolb HPI: 02/01 16:32 This 67 yrs old Female presents to ER via EMS with complaints of Chest Pain, thomas Shortness Of Breath. 16:32 The patient or guardian reports chest pain that is located primarily in the substernal thomas area, epigastric area, anterior chest wall. Onset: 5 day(s) ago. The pain does not radiate. The pain does not radiate. Associated signs and symptoms: Pertinent positives: abdominal pain, nausea, shortness of breath. The chest pain is described as a heaviness. Duration: The patient or guardian reports multiple episodes, that wax and wane. Modifying factors: The symptoms are alleviated by nothing. the symptoms are aggravated by nothing. Severity of pain: At its worst the pain was moderate in the emergency department the pain has improved mildly. The patient has experienced similar episodes in the past. Historical: - Allergies: 13:16 Bactrim DS; ld1 13:16 butorphanol tartrate; ld1 13:16 Fentanyl; ld1 13:16 Reglan; ld1 13:16 Stadol; ld1 13:16 sulfamethoxazole (bulk); ld1 13:16 TRIMETHOPRIM; ld1 - PMHx: 13:16 Anxiety; Atrial Fib; Bipolar disorder; Chronic pain; COPD; esophageal varices; ld1 Hepatitis; HIV; Hypertension; Migraines; Panic Attacks; - PSHx: 13:16 Appendectomy; Bilateral shoulder repair; Cholecystectomy; R wrist SX; hernia repair; ld1 - Immunization history:: Adult Immunizations up to date, Client reports receiving the 2nd dose of the Covid vaccine. - Social history:: Smoking status: Patient reports the use of cigarette tobacco products, Patient/guardian denies using alcohol. - Family history:: not pertinent. ROS: 16:32 Constitutional: Negative for fever, chills, and weight loss, Eyes: Negative for injury, thomas pain, redness, and discharge, ENT: Negative for injury, pain, and discharge, Neck: Negative for injury, pain, and swelling, Respiratory: Negative for shortness of breath, cough, wheezing, and pleuritic chest pain, Back: Negative for injury and pain, : Negative for injury, bleeding, discharge, and swelling, MS/Extremity: Negative for injury and deformity, Skin: Negative for injury, rash, and discoloration, Neuro: Negative for headache, weakness, numbness, tingling, and seizure, Psych: Negative for depression, anxiety, suicide ideation, homicidal ideation, and hallucinations, Allergy/Immunology: Negative for hives, rash, and allergies, Endocrine: Negative for neck swelling, polydipsia, polyuria, polyphagia, and marked weight changes, Hematologic/Lymphatic: Negative for swollen nodes, abnormal bleeding, and unusual bruising. 16:32 Cardiovascular: Positive for chest pain. 16:32 Abdomen/GI: Positive for abdominal pain, nausea, abdominal cramps. 16:32 MS/extremity: Negative for decreased range of motion, pain, swelling, tenderness. Exam: 16:32 Constitutional: This is a well developed, well nourished patient who is awake, alert, thomas and in no acute distress. Head/Face: Normocephalic, atraumatic. Eyes: Pupils equal round and reactive to light, extra-ocular motions intact. Lids and lashes normal. Conjunctiva and sclera are non-icteric and not injected. Cornea within normal limits. Periorbital areas with no swelling, redness, or edema. ENT: Nares patent. No nasal discharge, no septal abnormalities noted. Tympanic membranes are normal and external auditory canals are clear. Oropharynx with no redness, swelling, or masses, exudates, or evidence of obstruction, uvula midline. Mucous membranes moist. Neck: Trachea midline, no thyromegaly or masses palpated, and no cervical lymphadenopathy. Supple, full range of motion without nuchal rigidity, or vertebral point tenderness. No Meningismus. Chest/axilla: Normal chest wall appearance and motion. Nontender with no deformity. No lesions are appreciated. Cardiovascular: Regular rate and rhythm with a normal S1 and S2. No gallops, murmurs, or rubs. Normal PMI, no JVD. No pulse deficits. Respiratory: Lungs have equal breath sounds bilaterally, clear to auscultation and percussion. No rales, rhonchi or wheezes noted. No increased work of breathing, no retractions or nasal flaring. Abdomen/GI: Soft, non-tender, with normal bowel sounds. No distension or tympany. No guarding or rebound. No evidence of tenderness throughout. Back: No spinal tenderness. No costovertebral tenderness. Full range of motion. Skin: Warm, dry with normal turgor. Normal color with no rashes, no lesions, and no evidence of cellulitis. MS/ Extremity: Pulses equal, no cyanosis. Neurovascular intact. Full, normal range of motion. Neuro: Awake and alert, GCS 15, oriented to person, place, time, and situation. Cranial nerves II-XII grossly intact. Motor strength 5/5 in all extremities. Sensory grossly intact. Cerebellar exam normal. Normal gait. Psych: Awake, alert, with orientation to person, place and time. Behavior, mood, and affect are within normal limits. 16:32 ECG was reviewed by the Attending Physician. Vital Signs: 13:12 BP 227 / 120; Pulse 61; Resp 22; Temp 97.6(O); Pulse Ox 100% on R/A; Pain 6/10; ld1 14:00 BP 219 / 131; Pulse 59; Resp 17 S; Pulse Ox 96% on R/A; Pain 7/10; jg9 14:45 BP 228 / 131; Pulse 59; Resp 14 S; Pulse Ox 98% on R/A; Pain 7/10; jg9 15:30 BP 165 / 127; Pulse 61; Resp 18; Pulse Ox 100% on R/A; Pain 4/10; jg9 16:00 BP 157 / 105; Pulse 80; Resp 18; Pulse Ox 98% on R/A; Weight 79.38 kg (R); Pain 5/10; jg9 17:00 BP 165 / 104; Pulse 60; Resp 18 S; Pulse Ox 97% on R/A; Pain 5/10; jg9 18:00 BP 194 / 100; Pulse 73; Resp 17 S; Pulse Ox 94% on R/A; Pain 5/10; jg9 19:30 BP 174 / 126; Pulse 64; Resp 16; Pulse Ox 94% on R/A; jb4 20:00 BP 191 / 92; Pulse 70; bb 20:40 BP 192 / 110; Pulse 71; Resp 16; Pulse Ox 97% on R/A; jb4 21:30 BP 180 / 137; Pulse 65; Resp 16; Pulse Ox 95% on R/A; jb4 MDM: 13:31 Patient medically screened. thomas 16:37 Differential diagnosis: abnormal EKG, acute myocardial infarction, acute pericarditis, thomas anxiety, coronary artery disease congestive heart failure cholecystitis, Cholelithiasis hiatal hernia, pancreatitis, peptic ulcer disease, pericarditis, pneumonia, pulmonary embolus, stable angina, unstable angina. HEART Score: History: Moderately Suspicious (1), ECG: Non specific repolarization disturbance / LBTB / PM (1), Age: > or = 65 years (2), Risk Factors: > or = 3 Risk factors for atherosclerotic disease (2), [Hypercholesterolemia] [Hypertension] [+ Family HX] [Obesity] Troponin: < or = 1 x Normal Limit (0). The patient was given aspirin in the Emergency Department. The patient's deep vein thrombosis risk score was calculated as follows: Total Score: 0. This patient was found to be at low risk for a deep vein thrombosis by using the Well's assessment criteria. The patient's pulmonary embolism risk score was calculated as follows: patient has experienced immobilization or surgery in the last four weeks (1.5 Pts) Total Score: 0-2 points. This patient was found to be at low risk for a pulmonary embolism by using the Well's assessment criteria. MONI Risk Score: 1 - patient's age is greater or equal to 65 years, 1 - Three or more CAD risk factors, 1- Known CAD, TOTAL SCORE = 3. Data reviewed: vital signs, nurses notes, lab test result(s), EKG, radiologic studies, plain films. Data interpreted: quality assurance monitor body: rate is 80 beats/min, rhythm is regular, Pulse oximetry: on room air is 98 %. Test interpretation: by ED physician or midlevel provider: ECG, plain radiologic studies. Counseling: I had a detailed discussion with the patient and/or guardian regarding: the historical points, exam findings, and any diagnostic results supporting the discharge/admit diagnosis, lab results, radiology results, the need for further work-up and treatment in the hospital. 02/01 13:25 Order name: Basic Metabolic Panel; Complete Time: 16:30 ld1 02/01 13:25 Order name: CBC with Diff; Complete Time: 16:30 ld1 02/01 13:25 Order name: Troponin HS; Complete Time: 16:30 [facility] 02/01 13:34 Order name: SARS RAPID; Complete Time: 16:30 thomas 02/01 16:32 Order name: LFT's; Complete Time: 18:38 thomas 02/01 16:32 Order name: LFT's 02/01 13:25 Order name: XRAY Chest (1 view); Complete Time: 16:30 [facility] 02/01 18:38 Order name: Head Brain Wo Cont CT; Complete Time: 19:41 la 02/01 13:25 Order name: EKG; Complete Time: 13:25 02/01 13:25 Order name: Cardiac monitoring; Complete Time: 13:25 [facility] 02/01 13:25 Order name: EKG - Nurse/Tech; Complete Time: 13:25 02/01 13:25 Order name: IV Saline Lock; Complete Time: 14:38 [facility] 02/01 13:25 Order name: Labs collected and sent; Complete Time: 13:57 [facility] 02/01 13:25 Order name: O2 Per Protocol; Complete Time: 13:25 [facility] 02/01 13:25 Order name: O2 Sat Monitoring; Complete Time: 13:25 02/01 14:06 Order name: Labs - recollect needed: recollect all tubes; Complete Time: 15:06 bd EC:32 Rate is 57 beats/min. Rhythm is regular. QRS [place] is Normal. RI interval is normal. QRS thomas interval is normal. QT interval is normal. No Q waves. T waves are Inverted in leads V1, V2, V3. No ST changes noted. Clinical impression: Abnormal EKG without significant change and No evidence of ischemia. Interpreted by me. Reviewed by me. Administered Medications: 07:19 Drug: Lovenox (enoxaparin) 1 mg/kg Route: Sub-Q; Site: right lower abdomen; jg9 18:17 Follow up: Response: No adverse reaction j9 13:50 Drug: HydrALAZINE 25 mg Route: PO; ld1 15:31 Follow up: Response: No adverse reaction; Blood pressure is unchanged j9 15:00 Drug: hydrALAZINE 20 mg Route: IVP; Site: right upper arm; jg9 15:31 Follow up: Response: No adverse reaction; Blood pressure is unchanged j9 15:00 Drug: Dilaudid (HYDROmorphone) 1 mg Route: IVP; Site: right upper arm; jg9 15:31 Follow up: Response: No adverse reaction; Marked relief of symptoms; Pain is decreased; jg9 RASS: Drowsy (-1) 15:02 Drug: Zofran (Ondansetron) 4 mg Route: IVP; Site: right upper arm; jg9 15:31 Follow up: Response: No adverse reaction jg9 15:05 Drug: Benadryl (diphenhydrAMINE) 25 mg Route: IVP; Site: right upper arm; jg9 15:31 Follow up: Response: No adverse reaction; RASS: Drowsy (-1) jg9 17:20 Drug: Pepcid (famotidine) 20 mg Route: IVP; Site: right upper arm; jg9 18:04 Follow up: Response: No adverse reaction jg9 17:23 Drug: Lisinopril 20 mg Route: PO; jg9 18:17 Follow up: Response: No adverse reaction; Blood pressure is lowered jg9 17:23 Drug: hydrALAZINE 20 mg Route: IVP; Site: right upper arm; jg9 18:17 Follow up: Response: No adverse reaction; Blood pressure is lowered jg9 17:23 Drug: Norvasc (amlodipine) 5 mg Route: PO; jg9 18:17 Follow up: Response: No adverse reaction; Blood pressure is lowered jg9 18:55 Drug: HYDROcodone-acetaminophen 5 mg-325 mg 1 tabs {Note: RASS-0 9/10 headache.} Route: jg9 PO; Disposition Summary: 02/01/22 16:43 Hospitalization Ordered Hospitalization Status: Observation thomas Provider: Lei Munoz cha Location: Telemetry/MedSurg (observation) thomas Condition: Fair thomas Problem: new thomas Symptoms: have improved thomas Bed/Room Type: Standard thomas Room Assignment: 232(02/01/22 20:15) bb Diagnosis - Chest pain, unspecified thomas - Essential (primary) hypertension thomas - Abdominal pain, unspecified thomas - COPD/ Chronic obstructive pulmonary disease, unspecified thomas - Asymptomatic human immunodeficiency virus [HIV] infection status thomas Forms: - Medication Reconciliation Form thomas - SBAR form thomas Signatures: Dispatcher [employer] EDAudrey Travisara bd Cortes, Justus, MD MD thomas Kennedy, Dee, RN RN bb Jimi Tomlinson FNP-C INDUSTRIAL RELATIONS COUNSELOR-Wanda Campos RN RN ld1 Karen Joseph RN RN jg9 Corrections: (The following items were deleted from the chart) 20:15 16:43 thomas adler
--- NOTE | 2022-02-01 16:43 | ER ---
Nurse's Notes [facility] Name: Fawn Fleming Age: 67 yrs Sex: Female : 1955 Arrival Date: 02/01/2022 Time: 13:11 Bed 5 Private MD: Diagnosis: Chest pain, unspecified;Essential (primary) hypertension;Abdominal pain, unspecified;COPD/ Chronic obstructive pulmonary disease, unspecified;Asymptomatic human immunodeficiency virus [HIV] infection status Presentation: 02/01 13:12 Chief complaint: Patient states: I have had chest pain on and off for the past week - ld1 my zoology teacher told me to come to the ER if pain got worse. Coronavirus screen: At this time, the client does not indicate any symptoms associated with coronavirus-19. Ebola Screen: No symptoms or risks identified at this time. 13:12 Method Of Arrival: EMS: [facility] ld1 13:15 Initial Sepsis Screen: Does the patient meet any 2 criteria? No. Patient's initial ld1 sepsis screen is negative. Does the patient have a suspected source of infection? No. Patient's initial sepsis screen is negative. Risk Assessment: Do you want to hurt yourself or someone else? Patient reports no desire to harm self or others. Onset of symptoms was February 01, 2022. Care prior to arrival: Medication(s) given: ASA, 325 mg, Nitroglycerin, 0.4 mg SL. 13:15 Acuity: BLAYNE 3 ld1 Triage Assessment: 13:16 General: Appears in no apparent distress. comfortable, Behavior is calm, cooperative, ld1 appropriate for age. Pain: Complains of pain in chest Pain does not radiate. Pain currently is 6 out of 10 on a pain scale. Quality of pain is described as throbbing, Pain began 1 week ago Is intermittent. EENT: No signs and/or symptoms were reported regarding the EENT system. Neuro: Level of Consciousness is awake, alert, obeys commands, Oriented to person, place, time, situation. Cardiovascular: Capillary refill < 3 seconds Patient's skin is warm and dry. Rhythm is sinus rhythm. Respiratory: Airway is patent Respiratory effort is even, unlabored. GI: Abdomen is round non-distended. : No signs and/or symptoms were reported regarding the genitourinary system. Derm: No signs and/or symptoms reported regarding the dermatologic system. Musculoskeletal: No signs and/or symptoms reported regarding the musculoskeletal system. Historical: - Allergies: 13:16 Bactrim DS; ld1 13:16 butorphanol tartrate; ld1 13:16 Fentanyl; ld1 13:16 Reglan; ld1 13:16 Stadol; ld1 13:16 sulfamethoxazole (bulk); ld1 13:16 TRIMETHOPRIM; ld1 - PMHx: 13:16 Anxiety; Atrial Fib; Bipolar disorder; Chronic pain; COPD; esophageal varices; ld1 Hepatitis; HIV; Hypertension; Migraines; Panic Attacks; - PSHx: 13:16 Appendectomy; Bilateral shoulder repair; Cholecystectomy; R wrist SX; hernia repair; ld1 - Immunization history:: Adult Immunizations up to date, Client reports receiving the 2nd dose of the Covid vaccine. - Social history:: Smoking status: Patient reports the use of cigarette tobacco products, Patient/guardian denies using alcohol. - Family history:: not pertinent. Screenin:50 Abuse screen: Denies threats or abuse. Denies injuries from another. Nutritional jg9 screening: No deficits noted. Tuberculosis screening: No symptoms or risk factors identified. Fall Risk None identified. Assessment: 14:00 Reassessment: Patient appears in no apparent distress at this time. No changes from jg9 previously documented assessment. Patient and/or family updated on plan of care and expected duration. Pain level reassessed. Patient is alert, oriented x 3, equal unlabored respirations, skin warm/dry/pink. 14:36 Pain: Complains of pain in top of head and chest Pain currently is 7 out of 10 on a jg9 pain scale. 19:10 Reassessment: Patient appears in no apparent distress at this time. Patient and/or jb4 family updated on plan of care and expected duration. Pain level reassessed. Patient is alert, oriented x 3, equal unlabored respirations, skin warm/dry/pink. 20:40 Reassessment: Patient appears in no apparent distress at this time. Patient and/or jb4 family updated on plan of care and expected duration. Pain level reassessed. Patient is alert, oriented x 3, equal unlabored respirations, skin warm/dry/pink. 21:33 Reassessment: Patient appears in no apparent distress at this time. Patient and/or jb4 family updated on plan of care and expected duration. Pain level reassessed. Patient is alert, oriented x 3, equal unlabored respirations, skin warm/dry/pink. Vital Signs: 13:12 BP 227 / 120; Pulse 61; Resp 22; Temp 97.6(O); Pulse Ox 100% on R/A; Pain 6/10; ld1 14:00 BP 219 / 131; Pulse 59; Resp 17 S; Pulse Ox 96% on R/A; Pain 7/10; jg9 14:45 BP 228 / 131; Pulse 59; Resp 14 S; Pulse Ox 98% on R/A; Pain 7/10; jg9 15:30 BP 165 / 127; Pulse 61; Resp 18; Pulse Ox 100% on R/A; Pain 4/10; jg9 16:00 BP 157 / 105; Pulse 80; Resp 18; Pulse Ox 98% on R/A; Weight 79.38 kg (R); Pain 5/10; jg9 17:00 BP 165 / 104; Pulse 60; Resp 18 S; Pulse Ox 97% on R/A; Pain 5/10; jg9 18:00 BP 194 / 100; Pulse 73; Resp 17 S; Pulse Ox 94% on R/A; Pain 5/10; jg9 19:30 BP 174 / 126; Pulse 64; Resp 16; Pulse Ox 94% on R/A; jb4 20:00 BP 191 / 92; Pulse 70; bb 20:40 BP 192 / 110; Pulse 71; Resp 16; Pulse Ox 97% on R/A; jb4 21:30 BP 180 / 137; Pulse 65; Resp 16; Pulse Ox 95% on R/A; jb4 ED Course: 13:11 Patient arrived in ED. ld1 13:16 Triage completed. ld1 13:16 Arm band placed on right wrist. ld1 13:30 Missed attempt(s): 24 gauge in left wrist. jg9 13:31 Justus Kolb MD is Attending Physician. thomas 13:35 Missed attempt(s): 24 gauge in right hand. jg9 13:49 Karen Joseph, ASHLEY is Primary Nurse. jg9 13:51 SARS RAPID Sent. iw 14:36 Inserted saline lock: 24 gauge in right upper arm, using aseptic technique. jg9 14:52 XRAY Chest (1 view) In Process Unspecified. EDMS 16:40 Lei Munoz MD is Hospitalizing Provider. thomas 17:23 LFT's Sent. jg9 19:05 Head Brain Wo Cont CT In Process Unspecified. EDMS 21:53 No provider procedures requiring assistance completed. Patient admitted, IV remains in jb4 place. Patient maintains SpO2 saturation greater than 95% on room air. Administered Medications: 07:19 Drug: Lovenox (enoxaparin) 1 mg/kg Route: Sub-Q; Site: right lower abdomen; jg9 18:17 Follow up: Response: No adverse reaction jg9 13:50 Drug: HydrALAZINE 25 mg Route: PO; ld1 15:31 Follow up: Response: No adverse reaction; Blood pressure is unchanged jg9 15:00 Drug: hydrALAZINE 20 mg Route: IVP; Site: right upper arm; jg9 15:31 Follow up: Response: No adverse reaction; Blood pressure is unchanged j9 15:00 Drug: Dilaudid (HYDROmorphone) 1 mg Route: IVP; Site: right upper arm; jg9 15:31 Follow up: Response: No adverse reaction; Marked relief of symptoms; Pain is decreased; jg9 RASS: Drowsy (-1) 15:02 Drug: Zofran (Ondansetron) 4 mg Route: IVP; Site: right upper arm; jg9 15:31 Follow up: Response: No adverse reaction jg9 15:05 Drug: Benadryl (diphenhydrAMINE) 25 mg Route: IVP; Site: right upper arm; jg9 15:31 Follow up: Response: No adverse reaction; RASS: Drowsy (-1) jg9 17:20 Drug: Pepcid (famotidine) 20 mg Route: IVP; Site: right upper arm; jg9 18:04 Follow up: Response: No adverse reaction jg9 17:23 Drug: Lisinopril 20 mg Route: PO; jg9 18:17 Follow up: Response: No adverse reaction; Blood pressure is lowered jg9 17:23 Drug: hydrALAZINE 20 mg Route: IVP; Site: right upper arm; jg9 18:17 Follow up: Response: No adverse reaction; Blood pressure is lowered jg9 17:23 Drug: Norvasc (amlodipine) 5 mg Route: PO; jg9 18:17 Follow up: Response: No adverse reaction; Blood pressure is lowered jg9 18:55 Drug: HYDROcodone-acetaminophen 5 mg-325 mg 1 tabs {Note: RASS-0 9/10 headache.} Route: jg9 PO; Outcome: 16:43 Decision to Hospitalize by Provider. thomas 21:53 Admitted to Med/surg accompanied by tech, via wheelchair, room 232, with chart. jb4 21:53 Condition: stable 21:53 Discharge instructions given to patient, Instructed on the need for admit, Demonstrated understanding of instructions. 21:53 Patient left the ED. jb4 Signatures: Dispatcher [employer] EDMS Justus Kolb MD MD cha Ballard, Brenda, RN RN Jacquelin Maldonado RN RN iw Bryson, James, RN RN jb4 Wanda Rust RN RN ld1 Gilmore, Jennifer, RN RN jg9 Corrections: (The following items were deleted from the chart) 16:49 16:00 BP 157 / 105; Pulse 80bpm; Resp 18bpm; Pulse Ox 98% RA; ld1 jg9 18:09 14:45 BP 228 / 131; Pulse 59bpm; Resp 14bpm; Spontaneous; Pulse Ox 98% RA; jg9 jg9 18:09 15:30 BP 165 / 127; Pulse 61bpm; Resp 18bpm; Pulse Ox 100% RA; ld1 jg9 18:09 16:00 BP 157 / 105; Pulse 80bpm; Resp 18bpm; Pulse Ox 98% RA; 79.38 kg Reported; jg9 jg9 18:09 17:00 BP 165 / 104; Pulse 60bpm; Resp 18bpm; Spontaneous; Pulse Ox 97% RA; jg9 jg9
[2022-02-01] MEDS ORDERED: AMLODIPINE 5 MG TAB ONE (17:17)
[2022-02-01] MEDS ORDERED: lisinopriL 10 MG TAB ONE (17:17)
[2022-02-01] MEDS ORDERED: ENOXAPARIN 80 MG/0.8 ML SQ ONE (17:18)
[2022-02-01] MEDS ORDERED: FAMOTIDINE 20 MG/2 ML VIAL IV ONE (17:18)
[2022-02-01 18:25] LABS: Albumin 3.8 g/dL (3.4-5.0); Bilirubin Direct 0.2 mg/dL (0-0.2); Bilirubin Total 0.7 mg/dL (0.2-1.0); Protein, Total 8.3 g/dL (6.4-8.2)
[2022-02-01] MEDS ORDERED: HYDROCODONE/APAP 5/325 MG TAB ONE (18:58)
--- NOTE | 2022-02-01 19:15 | RAD REPORT ---
EXAM DESCRIPTION: CT - Head Brain Wo Cont - 02/01/2022 7:04 pm CLINICAL HISTORY: Headache COMPARISON: January 29, 2022 TECHNIQUE: Computed axial tomography of the head was obtained. IV contrast was not requested. All CT scans are performed using dose optimization technique as appropriate and may include automated exposure control or mA/KV adjustment according to patient size. FINDINGS: An intracranial bleed is not seen . The ventricles are normal in caliber. No extra-axial fluid collection is noted. Moderate low-density areas within periventricular, deep and subcortical white matter likely represent ischemic changes secondary to small vessel disease. Fluid within the sinuses/ mastoids is not seen. IMPRESSION: No acute intracranial abnormality is seen. If patient's symptoms persist MRI of the bra in would be recommended.
[2022-02-01] MEDS ORDERED: ONDANSETRON 4 MG/2 ML VIAL IV PRN (19:55)
--- NOTE | 2022-02-01 20:16 | P.HP ---
Certification for Inpatient Patient admitted to: Observation With expected LOS: <2 Midnights Patient will require the following post-hospital care: None Practitioner: I am a practitioner with admitting privileges, knowledge of patient current condition, hospital course, and medical plan of care. Services: Services provided to patient in accordance with Admission requirements found in Title 42 Section 412.3 of the Code of Federal Regulations <Jimi Tomlinson - Last Filed: 02/01/22 20:09> Patient History Date of Service: 02/01/22 Primary Care Provider: Dr. Rahman Reason for admission: Chest pain History of Present Illness: 67-year-old female with history of HIV, paroxysmal A. fib, COPD on home O2, CAD, hypertension, chronic diastolic congestive heart failure presents emergency department for chest pain and headache. She reports over the course of the last 2 to 3 days she has had elevated blood pressure, left-sided chest pain as well as a headache. She is evaluated in the emergency department her labs were significant for initial high-sensitivity troponin of 15.3 EKG without STEMI criteria chest x-ray no acute abnormalities displayed CT of the head without contrast showed no acute intracranial abnormality is seen. In the emergency department patient was given antihypertensive agents including hydralazine, lisinopril, Norvasc as well as therapeutic Lovenox and pain medications. Case was discussed with cardiology by ED provider plan is for heart catheterization to be performed tomorrow. Patient had positive stress test on 10/12/2021 followed by heart catheterization on 10/13/2021 her heart catheterization at that time showed normal coronary arteries. She has had a echocardiogram on 06/26/2021 which showed trace tricuspid regurgitation, normal left ventricular ejection fraction, left ventricular hypertrophy, left atrial enlargement. Will admit for further evaluation of Chest pain - Past Medical/Surgical History Diabetic: No -: HIV- viral load currently undectable -: CAD -: Bipolar disorder -: Hypertension -: COPD on home O2 -: Tobacco abuse -: former Alcohol abuse -: Anemia of chronic disease -: Hyperlipidemia -: GERD with hiatal hernia -: Atrial fibrillation-paroxysmal -: Chronic diastolic CHF -: Appendectomy -: Cholecystectomy -: left and right shoulder rotator cuff repair -: Right foot repair -: Right shoulder replacement -: right wrist -: hiatal hernia repair february 2021 -: right wrist Psychosocial/ Personal History: She lives at home. She is not . - Family History Father -: Heart disease, Hypertension, Lung disease, GI disease, Diabetes, Stroke, Liver disease, Kidney disease Mother -: Hypertension, Lung disease, GI disease, Blood disorders, Other (see notes) Notes: Epilepsy, chronic pain, leukemia - Social History Smoking Status: Former smoker Alcohol use: No CD- Drugs: No Caffeine use: Yes Place of Residence: Home <Jimi Tomlinson - Last Filed: 02/01/22 20:09> Date of Service: 02/02/22 <Lei Munoz - Last Filed: 02/02/22 18:45> Allergies fentanyl Allergy (Severe, Verified 03/31/21 11:11) Hives butorphanol tartrate [From Stadol] Allergy (Verified 03/31/21 11:11) confusion metoclopramide HCl [From Reglan] Allergy (Verified 03/31/21 11:11) Shortness of breath sulfamethoxazole [From Bactrim] Allergy (Verified 03/31/21 11:11) Hives/Rash trimethoprim [From Bactrim] Allergy (Verified 03/31/21 11:11) Hives/Rash Bactrim DS Allergy (Intermediate, Uncoded 03/31/21 11:11) Nausea/Vomiting Home Medications: Raltegravir Potassium [Isentress] 1 tab PO BID 02/28/12 Sertraline [Zoloft*] 2 tab PO BID 09/15/12 Metoprolol Tartrate 100 mg PO BID #60 tablet 02/03/20 Emtricitabine/Tenofov Alafenam [Descovy 200-25 mg Tablet] 1 tab PO DAILY 03/05/21 Amlodipine Besylate 1 tab PO DAILY 03/30/21 Dexlansoprazole [Dexilant] 60 mg PO DAILY 03/30/21 Lisinopril [Zestril] 1 tab PO BID 08/28/21 Hydralazine HCl 50 mg PO BEDTIME 10/12/21 Bupropion HCl [Wellbutrin Xl] 1 tab PO DAILY 10/16/21 Clopidogrel Bisulfate [Plavix*] 1 tab PO DAILY 10/16/21 Famotidine 1 tab PO Q12H 10/16/21 Furosemide 1 tab PO Q24H 10/16/21 Meclizine HCl [Antivert*] 25 mg PO TID PRN 5 Days #15 tab 10/16/21 Trazodone [Desyrel*] 1 tab PO BEDTIME 10/16/21 Hydrocodone 5/APAP 325 [[place] 5/325*] 1 tab PO Q6H PRN #12 tab 11/04/21 Lidocaine 4% Patch [Lidoderm 5% Patch*] 1 patch TOP DAILY #30 patch 11/04/21 Spironolactone [Aldactone*] 25 mg PO BID tab 11/04/21 Review of Systems Cardiovascular: Chest Pain Neurological: Other (headache) <Jimi Tomlinson - Last Filed: 02/01/22 20:09> Physical Examination - Physical Exam General: Alert, In no apparent distress, Oriented x3 HEENT: Atraumatic, PERRLA, Mucous membr. moist/pink, EOMI, Sclerae nonicteric Neck: Supple, 2+ carotid pulse no bruit, No LAD, Without JVD or thyroid abnormality Respiratory: Clear to auscultation bilaterally, Normal air movement Cardiovascular: Regular rate/rhythm, Normal S1 S2 Gastrointestinal: Normal bowel sounds, No tenderness Musculoskeletal: No tenderness Integumentary: No rashes Neurological: Normal speech, Normal strength at 5/5 x4 extr, Normal tone, Normal affect - Studies Laboratory Data (last 24 hrs) 02/01/22 17:55: Total Bilirubin 0.7, AST 29, ALT 22, Alkaline Phosphatase 89 02/01/22 15:00: WBC 6.30, Hgb 13.7, Hct 40.8, Plt Count 120 L 02/01/22 13:40: Sodium 136, Potassium 4.1, BUN 24 H, Creatinine 1.03, Glucose 101 <Jimi Tomlinson - Last Filed: 02/01/22 20:09> Assessment and Plan - Plan Assessment: Chest pain rule out ACS Hypertensive urgency underlying primary hypertension Chronic diastolic congestive heart failure Paroxysmal atrial fibrillation COPD on chronic home O2 as needed HIV Plan: Chest pain rule out ACS: Monitor on telemetry, trend troponins. Had positive stress test 10/12/2021 with mild stress-induced ischemia to the lateral wall, follow-up heart cath on 10/13/2021 with normal coronaries. Plan for heart catheterization tomorrow, n.p.o. after midnight. Continue home medications once verified. Hypertensive urgency underlying primary hypertension: Treated in the emergency department she was given hydralazine, amlodipine, lisinopril in ED. Patient unsure of her home medications will need to obtain and verify/reconcile home meds. Blood pressure mildly improved at this time we will continue to monitor. Chronic diastolic congestive heart failure: No signs of overload at this time last echocardiogram was in June of this year. Paroxysmal atrial fibrillation: Monitor on telemetry currently in sinus rhythm, patient unsure if she is on any chronic anticoagulation does have a history of multiple falls we will need to review medications once verified. COPD on chronic home O2 as needed: Supplemental oxygen as needed HIV: Continue home medications. DVT PPX: SCD Code status: Full Discharge Plan: Home Plan to discharge in: 24 Hours - Advance Directives Does patient have a Living Will: No Does patient have a Durable POA for Healthcare: No - Code Status/Comfort Care Code Status Assessed: Yes (Full code) Critical Care: No Time Spent Managing Pts Care (In Minutes): 70 <Jimi Tomlinson - Last Filed: 02/01/22 20:09> Physician Review: Patient Assessed, Agree with Above Assessment and Plan <Lei Munoz - Last Filed: 02/02/22 18:45>
[2022-02-01] MEDS: MORPHINE 2 MG/ML SYR IV PRN ×2 (20:49→22:18)
[2022-02-01] MEDS ORDERED: MORPHINE 2 MG/ML SYR ONE (20:52)
[2022-02-01] MEDS: HYDRALAZINE HCL 20 MG/ML VIAL IV PRN (22:18)
[2022-02-01] MEDS ORDERED: HYDROMORPHONE HCL 1 MG/ML INJ IV ONE (23:24)
[2022-02-01] MEDS ORDERED: LABETALOL 20 MG/4ML SYRINGE IV ONE (23:24)
[2022-02-02] MEDS: HYDRALAZINE HCL 20 MG/ML VIAL IV PRN ×3 (04:30→20:35)
[2022-02-02] MEDS ORDERED: METOPROLOL TAR 50 MG TAB ONE (04:35)
[2022-02-02 06:13] LABS: Absolute Lymphocytes (CBC) 1.2 K/uL (0.7-4.9); Hematocrit 40.5 % (36.0-45.0); Lymphocytes % 16.2 % (15.3-44.8); MCV 87.9 fL (80-100); MPV 7.2 fL (7.6-11.3)
[2022-02-02] MEDS ORDERED: ENALAPRILAT 1.25 MG/ML VIAL IV ONE (06:13)
[2022-02-02 06:25] LABS: Albumin 3.6 g/dL (3.4-5.0); Bilirubin Total 0.7 mg/dL (0.2-1.0); Potassium 3.4 mmol/L (3.5-5.1); Protein, Total 7.8 g/dL (6.4-8.2); Troponin High Sensitivity 15.7 pg/mL (<58.9)
[2022-02-02 06:26] LABS: Urine Bacteria <20 /HPF (<20); Urine RBC >50 /HPF (None Seen)
[2022-02-02] MEDS ORDERED: POTASSIUM CL SA 10 MEQ TAB PO ONE (07:32)
[2022-02-02] MEDS: METOPROLOL TAR 50 MG TAB PO SCH ×2 (07:57→20:32)
[2022-02-02] MEDS: CLOPIDOGREL 75 MG TABLET PO SCH (07:57)
[2022-02-02] MEDS: MORPHINE 2 MG/ML SYR IV PRN ×2 (07:58→17:42)
[2022-02-02] MEDS: AMLODIPINE 10 MG TAB PO SCH (07:58)
[2022-02-02] MEDS ORDERED: SPIRONOLACTONE 25 MG TABLET PO SCH (09:00)
[2022-02-02] MEDS ORDERED: lisinopriL 20 MG TAB PO SCH (09:00)
[2022-02-02] MEDS ORDERED: HEPA 1000U/500MLS 2,000 UNIT/1,000 ML BAG IV ONE (12:39)
[2022-02-02] MEDS ORDERED: HYDRALAZINE HCL 20 MG/ML VIAL ONE ×2 (13:32→14:34)
[2022-02-02] MEDS ORDERED: NA CHLORIDE 0.9% 500 ML ONE (13:33)
[2022-02-02] MEDS ORDERED: TICAGRELOR 90 MG TABLET PO ONE (14:06)
[2022-02-02] MEDS ORDERED: ATROPINE SULF 1 MG/10 ML SYR IV ONE (14:06)
[2022-02-02] MEDS ORDERED: CLOPIDOGREL 75 MG TABLET ONE (14:06)
[2022-02-02] MEDS ORDERED: ASPIRIN 325 MG TAB ONE (14:06)
[2022-02-02] MEDS ORDERED: MIDAZOLAM HCL 2 MG/2 ML INJ ONE (14:08)
[2022-02-02] MEDS ORDERED: FENTANYL CITR 100 MCG/2 ML ONE (14:08)
[2022-02-02] MEDS ORDERED: METOPROLOL TARTRATE 5 MG/5 ML INJ IV ONE (14:34)
[2022-02-02] MEDS ORDERED: LIDOCAINE 1% 20 ML MDV ONE (14:51)
[2022-02-02] MEDS ORDERED: ONDANSETRON 4 MG/2 ML VIAL ONE (15:17)
[2022-02-02] MEDS ORDERED: MORPHINE 4 MG/ML SYR ONE (15:24)
--- NOTE | 2022-02-02 15:40 | EKG ---
Test Date: 2022-02-01 Test Time: 13:18:10 Topographic Computator: KANDIS MEASUREMENT RESULTS: Intervals: Rate: 57 SC: 180 QRSD: 88 QT: 496 QTc: 482 [place]: P: 74 SC: 180 QRS: 14 T: 22 INTERPRETIVE STATEMENTS: Sinus bradycardia with premature supraventricular complexes Left ventricular hypertrophy with repolarization abnormality Abnormal ECG Compared to ECG 01/30/2022 13:12:53 Atrial premature complex(es) now present Early repolarization now present Sinus rhythm no longer present Sinus arrhythmia no longer present ST (T wave) deviation no longer present Prolonged QT interval no longer present Electronically Signed On 02-02-22 15:38:52 CDT by Mike Lund
[2022-02-02] MEDS ORDERED: hydroCHLOROthiazide 25 MG TAB PO SCH (15:58)
--- NOTE | 2022-02-02 18:53 | P.PN ---
Subjective Date of Service: 02/02/22 Primary Care Provider: Dr. Rahman Chief Complaint: Chest pain Subjective: No new changes No acute events since admission. She reports that her chest pain is intermittent, without any obvious inciting factors. She has been persistently hypertensive despite the use of multiple IV PRN medications (labetalol, hydralazine, enalaprilat). Review of Systems 10-point ROS is otherwise unremarkable Cardiovascular: Chest Pain Physical Examination - Vital Signs Temperature: 97.4 F Blood Pressure: 184/86 Pulse: 73 Respirations: 14 Pulse Ox (%): 95 - Physical Exam General: Alert, In no apparent distress, Oriented x3 HEENT: Atraumatic, PERRLA, Mucous membr. moist/pink, EOMI, Sclerae nonicteric Neck: Supple, JVD not distended Respiratory: Clear to auscultation bilaterally, Normal air movement Cardiovascular: No edema, Regular rate/rhythm, Normal S1 S2, No gallops, No rubs, No murmurs Gastrointestinal: Normal bowel sounds, Soft and benign, Non-distended, No tenderness, No rebound, No guarding Musculoskeletal: No clubbing Integumentary: No rashes Neurological: Normal speech, Cranial nerves 3-12 intact, Normal affect Assessment And Plan - Plan # Hypertensive Urgency - possible cause of Chest Pain - Evaluation thus far: - EKG: reportedly without STEMI criteria - Serial troponin: 15.3 -> 18.2 -> 15.7 - Transthoracic echocardiogram pending - Chest x-ray = "no acute abnormalities displayed" - Management plan: - Consult Cardiology and spoke with Dr. Lund - recommendations appreciated - Plan for [facility] today - For hypertension, Dr. Lund recommended: - Hydrochlorothiazide 25 mg daily - Amlodipine 10 mg daily - Lisinopril 40 mg daily - Metoprolol tartrate 100 mg PO BID - Spirinolactone 25 mg PO daily # Chronic Diastolic Congestive Heart Faliure # Chronic Obstructive Pulmonary Disease on Intermittent Home Oxygen - No evidence of acute exacerbation - Continue home medications once verified # Paroxysmal Atrial Fibrillation - Currently in sinus rhythm on telemetry - Resume home medications once verified # Chronic Human Immunodeficiency Virus Infection - Reports well-controlled on HAART - Continue home medications Lei Munoz M.D.
[2022-02-02] MEDS ORDERED: HYDRALAZINE HCL 25 MG TABLET PO SCH (21:00)
--- NOTE | 2022-02-02 22:01 | CON ---
Date of Consultation: 02/02/2022 Reason For Consultation: Chest pain. History Of Present Illness: A 67-year-old female, history of HIV and paroxysmal atrial fibrillation, status post left atrial appendage closure, COPD on home O2, hypertension, chronic diastolic heart fa ilure, presented with chest pain, pressure-like that radiates to her left upper extremity. The patie nt has been into the ER multiple times with the same complaint. Initially, blood pressure was in the 220 range, which improved with hydralazine, and the patient continued to have chest pain. Past Medical History: As outlined above in the HPI. Medications: Refer to the reconciliation sheet. Medications list was reviewed. Allergies: SHE IS ALLERGIC TO FENTANYL AND METOCLOPRAMIDE. Family History: No premature coronary artery disease and there is history of leukemia. Social History: She is an ex-smoker, not smoking currently. Does not drink, use any drugs. Review of Systems: All systems reviewed and they are negative except for what mentioned in HPI. Physical Examination: Vital Signs: Temperature is 97.4, pulse is 63, breathing at 18, and initial blood pressure in the em ergency room was 215/88. General: Pleasant middle-aged female, in no apparent distress. Head and Neck: Pupils are equal, reactive to light. Intact eye movements. No JVD. No cervical lym phadenopathy. Neck: Supple. Thyroid is not enlarged. Lungs: Clear to auscultation bilaterally. No rhonchi, wheezing, or crackles. No accessory muscle u se. Heart: Regular rate and rhythm. No extra sounds. Abdomen: Soft, nontender. Bowel sounds positive. No organomegaly. No masses or hernia. No rigidi ty or rebound. Extremities: No edema, clubbing, cyanosis. Intact pulses. Skin: No rash. Neurologic: Alert, awake, oriented x3. No acute focal deficits appreciated. Lymph Nodes: No cervical or axillary lymphadenopathy. Investigations: Troponin x3 are negative. Creatinine is 1.03, then 0.9. Hemoglobin 13.9. Assessment And Recommendation: 1.Chest pain to be suggestive of unstable angina. Patient had multiple ER visits with the same prob cierra. We will plan for coronary angiogram today to define the coronary anatomy and plan accordingly. 2.Hypertensive crisis. Responded well to hydralazine. Recommend to add hydrochlorothiazide 25 mg a nd reassess. Might need to reintroduce hydralazine but twice a day, to decrease the Aldactone to 25 mg once daily. Discussed with the primary hospitalist. Also, if the patient continues to have chest pain, I would recommend doing CT angiogram of the aorta to evaluate for possible dissection given th e severity of her blood pressure at presentation. 3.Diastolic heart failure, chronic. The patient might require diuretics. We will plan her left jaden tricular end-diastolic pressure and if it is elevated, we will put her on Lasix. Thank you for the consult. /KIRTI Voice ID: [id number] Report ID: [id number]
--- NOTE | 2022-02-03 03:25 | OP ---
Date of Procedure: 02/02/2022 Surgeon: MIHAELA FORRESTER Procedures Performed: 1.Selective coronary angiogram. 2.Left heart catheterization. Indication: Unstable angina. Access: Right femoral artery 6-Swazi, closed with StarClose. Complications: None. Bleeding: Less than 10 mL. Anesthesia: Total sedation time was 35 minutes. Description Of Procedure: After risks, benefits, and alternatives were explained, the patient agreed to the procedure and signed informed consent. The patient was brought into the cardiac catheterizat ion laboratory, prepped and draped in the usual sterile fashion. Then, we accessed the right femoral artery using a micropuncture kit, fluoroscopy, and ultrasound guidance and placed a 6 -Swazi pinnac le sheath and took 6-Swazi JL4 catheter into the aortic root, engaged left main, took standard views and exchanged for 6-Swazi JR4 catheter. Engaged the right coronary artery and then the JR4 cathete r was advanced over the wire into the LV, measured LVEDP and pullback, did not record any gradient. We then removed the catheter and the sheath. StarClose was used for closure. Good hemostasis. Findings: 1.Left main is large and normal. 2.LAD: Large vessel with mild 20% to 30% stenosis in the mid section, otherwise no abnormalities. Diagonal branches are normal. 3.Left circumflex is normal, medium size vessel. 4.RCA; large and dominant with mid 30% stenosis. Otherwise, no other disease. 5.Elevated LVEDP at 21 mmHg. Conclusion: 1.Mild nonobstructive coronary artery disease. 2.Mildly elevated LVEDP. Plan: Medical management plus diuresis. SR/MODL Voice ID: [id number] Report ID: [id number]
[2022-02-03] MEDS: HYDRALAZINE HCL 20 MG/ML VIAL IV PRN (03:36)
[2022-02-03 06:10] LABS: Albumin 3.5 g/dL (3.4-5.0); Bilirubin Total 0.7 mg/dL (0.2-1.0); Potassium 3.5 mmol/L (3.5-5.1); Protein, Total 7.1 g/dL (6.4-8.2)
[2022-02-03] MEDS: CLOPIDOGREL 75 MG TABLET PO SCH (07:34)
[2022-02-03] MEDS: AMLODIPINE 10 MG TAB PO SCH (07:34)
[2022-02-03] MEDS: METOPROLOL TAR 50 MG TAB PO SCH ×2 (07:34→22:00)
[2022-02-03] MEDS: SPIRONOLACTONE 25 MG TABLET PO SCH (07:35)
[2022-02-03] MEDS: MORPHINE 2 MG/ML SYR IV PRN ×4 (07:36→22:02)
[2022-02-03] MEDS ORDERED: lisinopriL 20 MG TAB PO SCH (09:00)
[2022-02-03] MEDS ORDERED: POTASSIUM CL SA 10 MEQ TAB PO ONE (09:00)
[2022-02-03 11:59] LABS: Specific Gravity > 1.030 (1.005-1.030); Urine Bacteria 20-50 /HPF (<20); Urine Bilirubin NEGATIVE (Negative); Urine Blood 1+ (Negative); Urine Clarity Turbid (Clear); Urine Color Yellow (Yellow); Urine Glucose NEGATIVE (Negative); Urine Mucus Slight /HPF (None Seen); Urine Protein 1+ (Negative); Urine RBC 21-50 /HPF (None Seen); Urine Urobilinogen 1+ (Normal); Urine WBC Clump Few /HPF (None Seen); Urine pH 5.5 (5.0-7.0)
--- NOTE | 2022-02-03 12:00 | P.CNS ---
Date of Consult: 02/03/22 Reason for Consult: ROHAN Requesting Physician: Lei Munoz Primary Care Provider: Dr. Rahman Chief Complaint: Chest pain History of Present Illness: 67-year-old female with history of paroxysmal A. fib per reports, COPD on home O2, malignant hypertension, chronic diastolic congestive heart failure presented to the emergency department for chest pain and with accelerated HTN. In the emergency department patient was given antihypertensive agents as well as therapeutic Lovenox and pain medications. Pt was seen by Cardiology and underwent LHC yesterday. Pt reports soreness today at groin site. Pt reports on going STEPHENS with minimal exertion. BP better c/w readings on presentation. Renal function worse over the past 24h. Allergies fentanyl Allergy (Severe, Verified 03/31/21 11:11) Hives butorphanol tartrate [From Stadol] Allergy (Verified 03/31/21 11:11) confusion metoclopramide HCl [From Reglan] Allergy (Verified 03/31/21 11:11) Shortness of breath sulfamethoxazole [From Bactrim] Allergy (Verified 03/31/21 11:11) Hives/Rash trimethoprim [From Bactrim] Allergy (Verified 03/31/21 11:11) Hives/Rash Bactrim DS Allergy (Intermediate, Uncoded 03/31/21 11:11) Nausea/Vomiting Home Medications: Raltegravir Potassium [Isentress] 1 tab PO BID 02/28/12 Sertraline [Zoloft*] 2 tab PO BID 09/15/12 Metoprolol Tartrate 100 mg PO BID #60 tablet 02/03/20 Emtricitabine/Tenofov Alafenam [Descovy 200-25 mg Tablet] 1 tab PO DAILY 03/05/21 Amlodipine Besylate 1 tab PO DAILY 03/30/21 Dexlansoprazole [Dexilant] 60 mg PO DAILY 03/30/21 Lisinopril [Zestril] 1 tab PO BID 08/28/21 Hydralazine HCl 50 mg PO BEDTIME 10/12/21 Bupropion HCl [Wellbutrin Xl] 1 tab PO DAILY 10/16/21 Clopidogrel Bisulfate [Plavix*] 1 tab PO DAILY 10/16/21 Famotidine 1 tab PO Q12H 10/16/21 Furosemide 1 tab PO Q24H 10/16/21 Meclizine HCl [Antivert*] 25 mg PO TID PRN 5 Days #15 tab 10/16/21 Trazodone [Desyrel*] 1 tab PO BEDTIME 10/16/21 Hydrocodone 5/APAP 325 [[place] 5/325*] 1 tab PO Q6H PRN #12 tab 11/04/21 Lidocaine 4% Patch [Lidoderm 5% Patch*] 1 patch TOP DAILY #30 patch 11/04/21 Spironolactone [Aldactone*] 25 mg PO BID tab 11/04/21 - Past Medical/Surgical History Diabetic: No -: HIV- viral load currently undectable -: CAD -: Bipolar disorder -: Hypertension -: COPD on home O2 @ 2L -: Tobacco abuse -: former Alcohol abuse -: Anemia of chronic disease -: Hyperlipidemia -: GERD with hiatal hernia -: Atrial fibrillation-paroxysmal -: Chronic diastolic CHF -: Appendectomy -: Cholecystectomy -: left and right shoulder rotator cuff repair -: Right foot repair -: Right shoulder replacement -: right wrist -: hiatal hernia repair february 2021 -: right wrist Psychosocial/ Personal History: She lives at home. She is not . - Family History Father Medical History: Heart disease, Hypertension, Lung disease, GI disease, Stroke, Cancer, Liver disease, Kidney disease Notes: Colon cancer Mother Medical History: Hypertension, Lung disease, GI disease, Blood disorders, Other (see notes) Notes: Epilepsy, chronic pain, leukemia - Social History Smoking Status: Unknown if ever smoked Alcohol use: No CD- Drugs: No Caffeine use: Yes Place of Residence: Home Review of Systems General: Weakness Eyes: Unremarkable ENT: Unremarkable Respiratory: SOB with Excertion Cardiovascular: Chest Pain Gastrointestinal: Unremarkable Genitourinary: Unremarkable Musculoskeletal: Unremarkable Integumentary: Bruising Neurological: Unremarkable Physical Examination Temp Pulse Resp BP Pulse Ox 97.2 F 60 14 150/95 H 94 02/03/22 08:00 02/03/22 08:00 02/03/22 08:00 02/03/22 08:00 02/03/22 08:00 General: Alert, In no apparent distress, Oriented x3 HEENT: Atraumatic, Normocephalic, Other (LFNC), EOMI Neck: Supple Respiratory: Clear to auscultation bilaterally, Normal air movement Cardiovascular: No edema, Regular rate/rhythm, Normal S1 S2 Gastrointestinal: Soft and benign, Non-distended, No tenderness Musculoskeletal: No swelling, No contractures, No erythema Integumentary: Other (Rt groin bruising over site of fem cannulating, tender to touch) Neurological: Normal speech, Normal tone, Normal affect Conclusions/Impression: 1. Abnormal results of kidney function studies 2. Stage 1 ROHAN 3. JANEEN, contrast induced nephropathy 4. Hypertensive urgency on admission, underlying malignant HTN 5. Acute on chronic diastolic CHF with elevated LVEDP 6. Abnormal findings in urine, unspecified -Cr level has bumped by > 0.3 mg/dl in the last 24h in light of JANEEN, BP lowering, concurrent ACEi administration, other. Will hold off on discharge and monitor additionally for 12-24h. Monitor UOP. Suspend ACEi temp but will resume in 24-48 if ROHAN self-limited and Cr level peaked or downward trending. Do not exceed a dose of 40 mg of Lisinopril in 24h. -Will hold off on IVF admin given elevated LVEDP -Will cont some of her anti hypertensives including CCB and will resume diuretics on discharge and likely switch loop to thiazide ones for better BP control. Will cont Spironolactone given its benefits in reducing diastolic dysfunction. -Will target BP < 140/90 longer-term. -Will check renal duplex to eval for secondary cause of HTN, renovascular HTN/MITCHELL -Avoid NSAIDs Thank you for this referral, Oscar Pena MD, BARB
[2022-02-03] MEDS: EMTRICITABINE/TENOFOVIR 1 TAB PO SCH (13:24)
--- NOTE | 2022-02-03 16:04 | P.PN ---
Subjective Date of Service: 02/03/22 Primary Care Provider: Dr. Rahman Chief Complaint: Chest pain No acute events overnight. Her blood pressure has been better controlled, but she has an acute kidney injury this morning. She endorses no specific complaints this morning. Review of Systems 10-point ROS is otherwise unremarkable Physical Examination - Vital Signs Temperature: 97.2 F Blood Pressure: 141/89 Pulse: 62 Respirations: 16 Pulse Ox (%): 93 - Studies Laboratory Data (last 24 hrs) 02/03/22 05:43: Sodium 139, Potassium 3.5, BUN 30 H, Creatinine 1.40 H, Glucose 98, Total Bilirubin 0.7, AST 24, ALT 18, Alkaline Phosphatase 79 02/02/22 16:31: Potassium 3.5 Assessment And Plan - Plan - Physical Exam General: Alert, In no apparent distress, Oriented x3 HEENT: Atraumatic, PERRLA, Mucous membr. moist/pink, EOMI, Sclerae nonicteric Neck: Supple, JVD not distended Respiratory: Clear to auscultation bilaterally, Normal air movement Cardiovascular: No edema, Regular rate/rhythm, Normal S1 S2, No gallops, No rubs, No murmurs Gastrointestinal: Normal bowel sounds, Soft and benign, Non-distended, No tenderness, No rebound, No guarding Musculoskeletal: No clubbing Integumentary: No rashes Neurological: Normal speech, Cranial nerves 3-12 intact, Normal affect # Hypertensive Urgency - possible cause of Chest Pain - Evaluation thus far: - EKG: reportedly without STEMI criteria - Serial troponin: 15.3 -> 18.2 -> 15.7 - Transthoracic echocardiogram pending - Chest x-ray = "no acute abnormalities displayed" - Management plan: - Consult Cardiology and spoke with Dr. Lund - recommendations appreciated - [facility] yesterday = per Dr. Lund, no significant coronary obstruction - For hypertension, Dr. Lund recommended: - Hydrochlorothiazide 25 mg daily - Amlodipine 10 mg daily - Lisinopril 40 mg daily - Metoprolol tartrate 100 mg PO BID - Spirinolactone 25 mg PO daily # KDIGO Stage I Acute Kidney Injury Possibly secondary to contrast-induced nephropathy vs medication-induced - Consulted Nephrology and spoke with Dr. Pena - recommendations appreciated - Recommended holding HCTZ, lisinopril, spironolactone for now - Creatinine = 0.99 -> 1.40 - Urinalysis = 1+ blood, 1+ nitrite, 500 leukocyte esterase, 21-50 RBCs, >50 WBCs - Monitor creatinine and urine output - If worsening, obtain renal ultrasound - Renally dose medications # Chronic Diastolic Congestive Heart Faliure # Chronic Obstructive Pulmonary Disease on Intermittent Home Oxygen - No evidence of acute exacerbation - Continue home medications once verified # Paroxysmal Atrial Fibrillation - Currently in sinus rhythm on telemetry - Resume home medications once verified # Chronic Human Immunodeficiency Virus Infection - Reports well-controlled on HAART - Continue home medications Lei Munoz M.D.
[2022-02-03 16:23] VITALS: O2SAT 91
[2022-02-03 16:54] LABS: Albumin 3.4 g/dL (3.4-5.0); Phosphorus 4.7 mg/dL (2.5-4.9); Potassium 3.6 mmol/L (3.5-5.1)
[2022-02-03] MEDS ORDERED: POTASSIUM 25 MEQ EFFERV TAB PO ONE (18:00)
--- NOTE | 2022-02-03 19:16 | RAD REPORT ---
EXAM DESCRIPTION: US - Abdomen Exam Limited - 02/03/2022 6:58 pm CLINICAL HISTORY: bruising/swelling post heart cath COMPARISON: none FINDINGS: Focused ultrasound in the right groin. Hypoechoic collection measuring approximately 3 cm is noted. No flow is identified within this. It is separate from the right common femoral artery and vein. IMPRESSION: Fluid collection presumably representing a hematoma in the right groin demonstrating no flow to suggest a pseudoaneurysm.
[2022-02-04] MEDS: MORPHINE 2 MG/ML SYR IV PRN (02:31)
[2022-02-04 04:19] VITALS: TEMP 97.4
[2022-02-04 05:51] LABS: Potassium 3.6 mmol/L (3.5-5.1)
--- NOTE | 2022-02-04 06:03 | RAD REPORT ---
EXAM DESCRIPTION: US - Abdomen Pelvis Scan US - 02/04/2022 5:47 am CLINICAL HISTORY: Malignant hypertension COMPARISON: None FINDINGS: The velocity of right renal artery 97 centimeters/seconds The velocity left renal artery 150 centimeters/seconds Renal artery/aorta ratio is within normal limits Right kidney 11 centimeters with a normal echotexture Left kidney 11 centimeters with a normal echotexture Bilateral renal cysts. The largest lies within the left kidney 4.8 centimeters No hydronephrosis No gross abnormality bladder IMPRESSION: No sonographic evidence of renal arterial stenosis
[2022-02-04] MEDS: AMLODIPINE 10 MG TAB PO SCH (07:40)
[2022-02-04] MEDS: METOPROLOL TAR 50 MG TAB PO SCH (07:40)
[2022-02-04 07:43] VITALS: BP 110/72
[2022-02-04] MEDS: EMTRICITABINE/TENOFOVIR 1 TAB PO SCH (08:03)
[2022-02-04] MEDS: SPIRONOLACTONE 25 MG TABLET PO SCH (08:03)
[2022-02-04] MEDS: CLOPIDOGREL 75 MG TABLET PO SCH (08:03)
--- NOTE | 2022-02-04 08:45 | P.DS ---
Admission Date: 02/03/22 Discharge Date: 02/04/22 Primary Care Provider: Dr. Rahman Disposition: ROUTINE DISCHARGE Discharge Condition: GOOD Reason for Admission: Chest pain Consultations: 1. Cardiology 2. Nephrology Procedures: - 02/01/2022: Left Heart Catheterization: 1. Mild nonobstructive coronary artery disease. 2. Mildly elevated LVEDP. Hospital Course: DIAGNOSES: # Hypertensive Urgency - possible cause of Chest Pain # KDIGO Stage I Acute Kidney Injury - possibly Contrast-Induced vs Medication- Induced Nephropathy # Chronic Diastolic Congestive Heart Failure # Post-Catheterization Right Groin Hematoma # Chronic Obstructive Pulmonary Disease on Intermittent Home Oxygen # Paroxysmal Atrial Fibrillation # Chronic Human Immunodeficiency Virus Infection HOSPITAL COURSE: Ms. Fawn Fleming is a 67 year old female with a past medical history significant for chronic diastolic congestive heart failure, chronic obstructive pulmonary disease, paroxysmal atrial fibrillation, chronic human immunodeficiency virus infection, and hypertension who was admitted to the [facility] on 02/01/2022 for chest pain. She was admitted to the Medicine service. Upon further evaluation, she was found to have hypertensive urgency. Her troponin trend was flat. Her EKG was reportedly without STEMI criteria. Cardiology was consulted and she was evaluated by Dr. Lund. On 02/01/2022, she underwent a left heart catheterization, which revealed, "1. Mild nonobstructive coronary artery disease. 2. Mildly elevated LVEDP." Her postcardiac catheterization course was complicated by a right inguinal hematoma. An ultrasound was obtained which revealed, "fluid collection presumably representing a hematoma in the right groin demonstrating no flow to suggest a pseudoaneurysm." In addition to the development of a hematoma, she developed an acute kidney injury, which was thought to be secondary to contrast induced nephropathy +/- medication induced nephropathy. Although her urinalysis was abnormal, she did not display any urinary symptoms to suggest a UTI; it is suspected that her urinalysis is abnormal due to contaminated specimen vs asymptomatic bacteruria. Nephrology was consulted and she was evaluated by Dr. Pena. He recommended that she be discharged on amlodipine, metoprolol, spironolactone, and hydrochlorothiazide. He recommended holding lisinopril for now. He will follow-up with her in clinic in the next several days to monitor her renal function. He has cleared her for discharge and he will arrange this follow-up appointment. On 02/04/2022, she was seen on morning rounds and deemed medically stable for discharge. She was discharged with instructions to schedule follow-up appointments with her PCP (Dr. Rahman) in 3-5 days, with Nephrology (Dr. Pena) in 3-5 days, and with Cardiology (Dr. Crane) in 5-7 days. She was provided prescriptions for hydrochlorothiazide and spironolactone. She was given the opportunity to ask questions and reported no further questions. Furthermore, all questions were answered to the best of my ability. Today, I personally spent 25 minutes on her case, of which greater than 50% of the time was spent in patient education, counseling, and coordination of care as described above. - Physical Exam General: Alert, In no apparent distress, Oriented x3 HEENT: Atraumatic, PERRLA, Mucous membr. moist/pink, EOMI, Sclerae nonicteric Neck: Supple, JVD not distended Respiratory: Clear to auscultation bilaterally, Normal air movement Cardiovascular: No edema, Regular rate/rhythm, Normal S1 S2, No gallops, No rubs, No murmurs Gastrointestinal: Normal bowel sounds, Soft and benign, Non-distended, No tenderness, No rebound, No guarding Musculoskeletal: No clubbing Integumentary: No rashes Neurological: Normal speech, Cranial nerves 3-12 intact, Normal affect Vital Signs/Physical Exam: Temp Pulse Resp BP Pulse Ox 97.4 F 64 18 110/72 95 02/04/22 08:00 02/04/22 08:03 02/04/22 08:00 02/04/22 08:03 02/04/22 08:00 Laboratory Data at Discharge: WBC 7.50 K/uL (4.3-10.9) D 02/02/22 05:54 Hgb 13.9 g/dL (12.0-15.0) 02/02/22 05:54 Hct 40.5 % (36.0-45.0) 02/02/22 05:54 Plt Count 130 K/uL (152-406) L 02/02/22 05:54 Sodium 137 mmol/L (136-145) 02/04/22 05:25 Potassium 3.6 mmol/L (3.5-5.1) 02/04/22 05:25 BUN 42 mg/dL (7-18) H 02/04/22 05:25 Creatinine 1.66 mg/dL (0.55-1.3) H 02/04/22 05:25 Glucose 103 mg/dL (74-106) 02/04/22 05:25 Phosphorus 4.7 mg/dL (2.5-4.9) 02/03/22 16:24 Total Bilirubin 0.7 mg/dL (0.2-1.0) 02/03/22 05:43 AST 24 U/L (15-37) 02/03/22 05:43 ALT 18 U/L (12-78) 02/03/22 05:43 Alkaline Phosphatase 79 U/L (45-117) 02/03/22 05:43 Home Medications: Raltegravir Potassium [Isentress] 1 tab PO BID 02/28/12 Sertraline [Zoloft*] 2 tab PO BID 09/15/12 Metoprolol Tartrate 100 mg PO BID #60 tablet 02/03/20 Emtricitabine/Tenofov Alafenam [Descovy 200-25 mg Tablet] 1 tab PO DAILY 03/05/21 Amlodipine Besylate 1 tab PO DAILY 03/30/21 Dexlansoprazole [Dexilant] 60 mg PO DAILY 03/30/21 Bupropion HCl [Wellbutrin Xl] 1 tab PO DAILY 10/16/21 Clopidogrel Bisulfate [Plavix*] 1 tab PO DAILY 10/16/21 Famotidine 1 tab PO Q12H 10/16/21 Meclizine HCl [Antivert*] 25 mg PO TID PRN 5 Days #15 tab 10/16/21 Trazodone [Desyrel*] 1 tab PO BEDTIME 10/16/21 Lidocaine 4% Patch [Lidoderm 5% Patch*] 1 patch TOP DAILY #30 patch 11/04/21 Spironolactone [Aldactone*] 25 mg PO DAILY #30 tab 02/04/22 hydroCHLOROthiazide [Hydrochlorothiazide] 25 mg PO DAILY #14 tab 02/04/22 New Medications: Spironolactone [Aldactone*] 25 mg PO DAILY #30 tab hydroCHLOROthiazide [Hydrochlorothiazide] 25 mg PO DAILY #14 tab Physician Discharge Instructions: 1. Please schedule a follow-up appointment with your PCP in 3-5 days 2. Please schedule a follow-up appointment with Nephrology (Dr. Pena) in 3-5 days - He will check your kidney blood work and adjust your blood pressure medication at this time 3. Please schedule a follow-up appointment with Cardiology (Dr. Crane) in 3-5 days - He will check your right-sided catheterization site to make sure it is healing well Diet: AHA Activity: Ad pricila Followup: Oscar Pena [ACTIVE - CAN ADMIT] - 1 Week Per Crane MD [ACTIVE - CAN ADMIT] - 2-3 Days Lele Rahman DO, DO [ACTIVE - CAN ADMIT] - 2-3 Days Time spent managing pt's care (in minutes): 25
[2022-02-04] MEDS ORDERED: POTASSIUM CL SA 10 MEQ TAB PO ONE (09:00)
--- NOTE | 2022-02-04 10:48 | P.PN ---
Nephrology note: (S) Pt seen sitting on the side of the bed, no CP or dyspnea. Renal function tests discussed with pt and Dr. Munoz, discharge plan discussed (O) Vitals reviewed in the EMR General: Alert, In no apparent distress, Oriented x3 HEENT: Atraumatic, Normocephalic, Other (LFNC), EOMI Neck: Supple Respiratory: Clear to auscultation bilaterally, Normal air movement Cardiovascular: No edema, Regular rate/rhythm, Normal S1 S2 Gastrointestinal: Soft and benign, Non-distended, No tenderness Musculoskeletal: No swelling, No contractures, No erythema Integumentary: Other (Rt groin bruising over site of fem cannulating, tender to touch) Neurological: Normal speech, Normal tone, Normal affect Conclusions/Impression: 1. Abnormal results of kidney function studies 2. Stage II ROHAN 3. JANEEN, contrast induced nephropathy 4. Hypertensive urgency on admission, underlying malignant HTN 5. Acute on chronic diastolic CHF with elevated LVEDP 6. Abnormal findings in urine, unspecified -Cr level has bumped by > 0.5 mg/dl in the last 48h in light of JANEEN, BP lowering, concurrent ACEi administration, other. Cr level further rise is slowing. Cont to hold ACEi at this time. Will give pt lab slip to check labs tmrw and will f/u in clinic next week -Did hold off on IVF admin given elevated LVEDP -Will cont some of her anti hypertensives given excessive BP lowering, CCB held this AM, will move dose to PM and hold if SBP < 110. Will resume diuretics on discharge and likely switch loop to thiazide ones for better BP control. Will cont Spironolactone given its benefits in reducing diastolic dysfunction but hold if renal function worsens or other. -Will target BP < 140/90 longer-term. -Did check renal duplex to eval for secondary cause of HTN, renovascular HTN/MITCHELL which was unrevealing for that. -Avoid NSAIDs Oscar Pena MD, BARB
[2022-02-04] MEDS ORDERED: AMLODIPINE 10 MG TAB PO SCH (21:00)
--- NOTE | 2022-02-07 03:06 | P.PN ---
Date of Service: 02/07/22 Attending physician reviewed urine culture after patient was discharged, urine culture showed E. coli, Enterococcus faecalis sensitive to Augmentin. Hospitalist attending discussed case with nephrology as well as patient's creatinine was trending up prior to discharge. Patient supposed to follow-up with nephrology on the . Made multiple attempts at calling patient at all listed phone numbers and left voicemail on 2 devices and attempt to arrange for outpatient oral antibiotics with Augmentin. Patient has yet to return call at this time. Nephrology stated they will discuss/address during visit on the .
== END 2022-02-04 11:00 | disposition home or self-care (01) | DRG 287 ==
LOC: ER 13:08 → ERHOLD 19:48 → 2ND 20:30 → OBSVTOIN 02-03 13:24
PROVIDERS: ADMIT Internal Medicine; ATTEND Internal Medicine
PROC: B201YZZ Plain Radiography of Multiple Coronary Arteries using Other Contrast (ICD-10-PCS; principal; 2022-02-02)
PROC: 4A023N7 Measurement of Cardiac Sampling and Pressure, Left Heart, Percutaneous Approach (ICD-10-PCS; 2022-02-02)
DX: I16.0 Hypertensive urgency (principal); B20 Human immunodeficiency virus [HIV] disease; I50.32 Chronic diastolic (congestive) heart failure; N17.9 Acute kidney failure, unspecified; L76.32 Postprocedural hematoma of skin and subcutaneous tissue following other procedure; N39.0 Urinary tract infection, site not specified; I48.0 Paroxysmal atrial fibrillation; J44.9 Chronic obstructive pulmonary disease, unspecified; I25.10 Atherosclerotic heart disease of native coronary artery without angina pectoris; K21.9 Gastro-esophageal reflux disease without esophagitis; I11.0 Hypertensive heart disease with heart failure; T50.8X1A Poisoning by diagnostic agents, accidental (unintentional), initial encounter; N14.4 Toxic nephropathy, not elsewhere classified; Y92.234 Operating room of hospital as the place of occurrence of the external cause; Z79.899 Other long term (current) drug therapy; Z99.81 Dependence on supplemental oxygen; B96.20 Unspecified Escherichia coli [E. coli] as the cause of diseases classified elsewhere; B95.2 Enterococcus as the cause of diseases classified elsewhere; N14.1 Nephropathy induced by other drugs, medicaments and biological substances; Z88.2 Allergy status to sulfonamides; F31.9 Bipolar disorder, unspecified; Z20.822 Contact with and (suspected) exposure to COVID-19
CPT/HCPCS: 36415; 70450; 71045; 76705; 76937; 80048; 80053; 80069; 80076; 81001; 81015; 84132; 84484; 85025; 87077; 87086; 87088; 87186; 87811; 93005; 93458; 93975; 96372; 96374; 96375; 99285; C1893; G0378; J0360; J1170; J1200; J1644; J2250; J2270; J2405; J3010; J3490; J7040; Q9966

== ENCOUNTER 2022-02-07 20:18 | Emergency (ER) | payer OTHER ==
--- OUTSIDE RECORDS SUMMARY | 2022-02-07 20:32 | XMS REPORT | Continuity of Care Document ---
:1955 Author Organization [facility] t Address [address] [place] [address] Care Team Providers Name Role Phone Urmila Rahman Primary Care Physician ELAN LIRA Attending Clinician Unavailable Santiago Sanchez Attending Clinician Mike Lund Attending Clinician Unavailable Beverly Layton MD Attending Clinician Eliseo Arce MD Attending Clinician Carol Ann SNOWBOARDING INSTRUCTOR, Sarai Lieberman Attending Clinician [phone] Ashly Pelletier MA Attending Clinician Unavailable [facility] Attending Clinician Unavailable Robbi Bal Attending Clinician Monica Rodas MA Attending Clinician Unavailable Agustina Ortiz MA Attending Clinician Unavailable Remigio JENKINS, Kirit Barnes Attending Clinician BEVERLY LAYTON Attending Clinician Unavailable DO PORSHA STREETER Attending Clinician Unavailable RahmanLele bird Admitting Clinician Unavailable Mike Lund Admitting Clinician Unavailable ELISEO ARCE Admitting Clinician Unavailable DO PORSHA STREETER Admitting Clinician Unavailable Payers Payer Name Policy Type Policy Number Effective Date Expiration Date S gabino [facility] [id number] 2012 STARPLUS OON 00:00:00 EXCEPT HHS Problems Condition Condition Condition Status Onset Resolution Last Treating Co mments Source Name Details Category Date Date Treatment Clinician Date Gastropare Gastropare Disease Active Overview : Methodi sis sis 4-[address] 00:00: [facility] this [facility] 00 note l might be different from the original. Added automatic ally from request for surgery [id number] Dysphagia Dysphagia Disease Active Overview: Methodi 4-[address] 00:00: g of this [facility]osp[facility] 00 note l might be different from the original. 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 2020-10-15 Memoria PVI PVI 08-19 17:07:00 l ABLATION ABLATION 00:00: Patel n W/ CARTO / W/ CARTO / 00 GA / T GA / T Active 08/19/2020 [facility] Food Food Disease Active 2019-05 Methodi intoleranc [...] 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:00: [place] shoulder shoulder 00 Medica l arthroplas arthroplas Br anch ty ty Posttrauma Posttrauma Disease Active U nivers tic stress tic stress 5-08 it y of disorder disorder 00:00: New [...] [facility] hoxazole 1-25 Clear 00:00: Garcia 00 [facility] trimetho DA Active SV [facility] prim 1-25 Clear 00:00: Garcia 00 [facility] codeine DA Active SV N/V [facility] 1-25 Clear 00:00: Garcia 00 [facility] Metoclop Propensi Active [facility] ramide ty [...] Kidney disease [facility] Social History Social Habit Start Date Stop Date Quantity Comments Source History of tobacco Cigarette Smoker [facility] use Hospital History SDOH [facility] Alcohol Frequency Hospita l History SDOH [facility] Alcohol Std Drinks Hospit al History [facility] Alcohol Binge Hospital Exposure to 2021-12-02 2021-12-12 Not sure University of SARS-CoV-2 (event) 00:00:00 23:54:00 [facility] Alcohol intake 2020-12-08 2020-12-08 Current drinker Metho dist 00:00:00 00:00:00 [facility] (finding) Cigarettes smoked 2020-09-05 2020-09-[address] current (pack per 00:00:00 00:00:00 Hospita l day) - Reported Cigarette 2020-09-05 2020-09-05 [facility] pack-years 00:00:00 00:00:00 Hospital Tobacco use and 2020-08-06 2020-08-06 Former smokeless Uni versity of exposure 00:00:00 00:00:00 tobacco user [facility] Alcohol Comment 2016-09-23 2016-09-23 rare [facility] 00:00:00 00:00:00 Hospital Tobacco Comment 2015-02-14 2015-02-14 Smokes approx 1-2 Un iversity of 00:00:00 00:00:00 cigarettes per [place] [facility] porfirio day when she Branch smokes Sex Ass[birth year] At [birth year] [facility] 00:00:00 00:00:00 Smoking Status Start Date Stop Date Source Ex-smoker 2020-08-06 00:00:00 2020-08-06 00:00:00 [facility] [place] [facility] Medications Ordered Filled Start Stop Current Ordering Indication Dosage Frequency Signature Comments Components Source Medication Medication Date Date Medication? Clinician (SIG) Name Name esomeprazol 2021- No 40mg Take 40 mg Univers e (NEXIUM) 11-20 by mouth 2 it y of 40 mg 09:12: 00:00 (two) [place] capsule 03 :00 times Medical daily. Branch amiodarone 2021- No 100mg Take 100 U nivers 100 mg 11-20 mg by ity of tablet 09:11: 00:00 mouth [place] 57 :00 daily. Medical Branch apixaban No 5mg Take 5 mg Uni vers (ELIQUIS) 5 11-20 by mouth 2 i ty of mg tablet 09:11: 00:00 (two) [place] 35 :00 times Medical daily. Branch traZODONE No Take by [facility] ers (DESYREL) 11-20 mouth at ity o f 10 mg/mL 09:10: 00:00 bedtime. Yomia s oral 28 :00 Medical suspension Branch hydralAZINE Yes 25mg Take 25 mg Univers (APRESOLINE 11-20 by mouth ity of ) 25 mg 08:47: daily. [place] tablet 47 Medical Branch cephALEXin 2021- No [id number] 500mg Take 1 Univers (KEFLEX) 10-24 capsule by ity of 500 mg 00:00: 00:00 mouth 4 [place] capsule 00 :00 (four) Medical times Branch daily. acetaminoph 2021- No [id number] 1{tbl} Take 1 U nivers en-codeine 10-24 tablet by ity of (TYLENOL-CO 00:00: 00:00 [place] DEINE #3) 00 :00 every 4 Medical 300-30 mg (four) Branch tablet hours as needed for Pain (scale 7-10). Indication s: acute pain buPROPion Yes [id number] 150mg Take 1 U nivers XL 4-12 tablet by ity of (WELLBUTRIN 00:00: mouth [place] XL) 150 mg 00 daily. Medical 24 hr Branch tablet busPIRone Yes [id number] 30mg Take 1 Un matt 30 mg 4-12 tablet by ity of tablet 00:00: mouth 2 [place] 00 (two) Medical times Branch daily. SERTraline Yes [id number] 200mg Take 2 Univers 100 mg 4-12 tablets by ity of tablet 00:00: mouth [place] 00 daily. Medical Branch raltegravir Yes [id number] 400mg Take 1 Univers (ISENTRESS) 3-28 tablet by ity of 400 mg 00:00: mouth 2 [place] tablet 00 (two) Medical times Branch daily. LORazepam 1 2021- No [id number] 1mg Take 1 Univers mg tablet 08-10- tablet by ity of 00:00: 00:00 mouth [...] MG 00 times a tablet day. emtricitabi 2021- No [id number] Take one Univers ne-tenofovi -20 09-12 po daily ity of r alafen 00:00: 00:00 [place] (DESCOVY) 00 :00 Medical tablet Branch metoprolol Yes [id number] Take 1 UT tartrate 7-26 tablet Health (Lopressor) 00:00: (100 mg 100 MG 00 total) by tablet mouth 2 (two) times a day AND 0.5 tablets (50 mg total) every night. metoprolol Yes [id number] Take 1 [facility] tartrate 7-26 tablet Health [...] area in groin) hydrALAZINE 0 Yes 50mg Q.[id number] Take 50 mg Methodi (APRESOLINE 7-19 [id number] mouth [address] ) 50 MG 10:51: 3D (three) Hospita tablet 25 times a l day. busPIRone 0 Yes 20mg QD Take 20 mg Me thodi (BUSPAR) 10 7-[address] MG tablet 10:51: nightly. Hosp soren 25 l acetaminoph 2020-0 [...] area in groin) hydrALAZINE 0 Yes 50mg Q.[id number] Take 50 mg Methodi (APRESOLINE 7-[id number] mouth [address] ) 50 MG [...] (affected area in groin) hydrALAZINE Yes 50mg Q.[id number] Take 50 mg Methodi (APRESOLINE 7-[id number] mouth [address] [facility] ) 50 MG [...] area in groin) hydrALAZINE 0 Yes 50mg Q.[id number] Take 50 mg Methodi (APRESOLINE 7-[address] [id number] mouth [address] [facility] ) 50 MG [...] area in groin) hydrALAZINE 0 Yes 50mg Q.[id number] Take 50 mg Methodi (APRESOLINE 7-[id number] mouth [address] ) 50 MG [...] (affected area in groin) hydrALAZINE Yes 50mg Q.[id number] Take 50 mg Methodi (APRESOLINE 7-19 [id number] mouth [address] [facility] ) 50 MG [...] area in groin) hydrALAZINE 0 Yes 50mg Q.[id number] Take 50 mg Methodi (APRESOLINE 7-19 [id number] mouth [address] ) 50 MG [...] area in groin) hydrALAZINE 0 Yes 50mg Q.[id number] Take 50 mg Methodi (APRESOLINE 7-[id number] mouth [address] ) 50 MG [...] Hospita tablet 25 daily. l nystatin-tr Yes [id number] Apply to [facility] 11-25 area(s) 3 ity of cream 00:00: (three) [place] 00 times Medical daily. Branch budesonide- 2020- No 1{puff} QD Inhale 1 Methodi formoteroL 6-25 06-[address] (SYMBICORT) 14:37: 00:00 morning. H ospita 160-4.5 02 :00 l mcg/actuati on inhaler hydrALAZINE Yes [id number] 50mg Q.[id number] Take 1 UT (Apresoline 6-11 [id number] tablet (Language123 Health ) 50 MG 00:00: 3D mg total) tablet 00 by mouth 3 (three) times a day. hydrALAZINE Yes [id number] 50mg Q.[id number] Take 1 UT (Apresoline 10-31 [id number] tablet (50 Health ) 50 MG 00:00: [...] No 200mg 200 mg. UT (Zoloft) 530 - Health 100 MG 00:00: 00:00 tablet 00 :00 mupirocin 2020-0 Yes UT (Bactroban) 5-28 Health 2 % 00:00: ointment 00 mupirocin 0 Yes UT (Bactroban) 5-28 Health 2 % 00:00: ointment 00 nystatin 2020- No [id number] Q.25D Take 5 mL Methodi (MYCOSTATIN 10-06 [...] e 4-10 Tablet l 14:00: should not Counce 00 be chewed or crushed. (Same as: [...] ia 4-10 (Same as: l 14:00: Cordarone) Counce 00 Amlodipine No Notes: Memor ia 4-10 (Same as: l 14:00: Norvasc) Counce 00 emtricitabi No Notes: Caesar lisa ne 200 MG / 4-10 (Same as: l tenofovir 14:00: Descovy) Herm ariel alafenamide 00 Non-formul 25 MG Oral nancy Tablet [Descovy] Sertraline No Notes: Memor ia 4-10 (Same as: l 14:00: Zoloft) Marty 00 pantoprazol No Notes: Caesar lisa e 4-10 Tablet l 14:00: should not Counce 00 be chewed or crushed. (Same as: Protonix) Amiodarone No Notes: Memor ia 4-10 (Same as: l 14:00: Cordarone) Amlodipine No Notes: Memor ia 4-10 (Same as: l 14:00: Norvasc) Counce 00 emtricitabi No Notes: Caesar lisa ne 200 MG / 4-10 (Same as: l tenofovir 14:00: Descovy) Herm ariel alafenamide 00 Non-formul 25 MG Oral nancy Tablet [Descovy] Sertraline No Notes: Memor ia 4-10 (Same as: l 14:00: Zoloft) pantoprazol No Notes: Caesar lisa e 4-10 Tablet l 14:00: should not Counce 00 be chewed or crushed. (Same as: [...] e 4-10 Tablet l 14:00: should not Counce 00 be chewed or crushed. (Same as: [...] ia 4-10 (Same as: l 14:00: Norvasc) Counce 00 emtricitabi No Notes: Caesar lisa ne 200 MG / 4-10 (Same as: l tenofovir 14:00: Descovy) alafenamide 00 Non-formul 25 MG Oral nancy Tablet [Descovy] Sertraline No Notes: Memor ia 4-10 (Same as: l 14:00: Zoloft) pantoprazol No Notes: Caesar lisa e 4-10 Tablet l 14:00: should not Counce 00 be chewed or crushed. (Same as: Protonix) Amiodarone No Notes: Memor ia 4-10 (Same as: l 14:00: Cordarone) Sucralfate No Notes: May M emoria 4-10 interfere l 02:00: w/enteral Counce 00 feeds - Take 1 hr before [...] M emoria 4-10 interfere l 02:00: w/enteral Counce 00 feeds - Take 1 hr before [...] 0.9% 4-10 (Same as: l 02:00: BD Counce 00 Posiflush) Eliquis No Notes: Memoria 4-10 [...] 0.9% 4-10 (Same as: l 02:00: BD Counce Posiflush) Eliquis No Notes: Memoria 4-10 Same [...] 0.9% 4-10 (Same as: l 02:00: BD Counce Posiflush) Eliquis No Notes: Memoria 4-10 Same [...] Memoria 4-10 Same as: l 02:00: Eliquis Counce Hydralazine No Notes: Caesar lisa Hydrochlori 4-10 [...] not exceed l #3 00:12: 4gm/day of Counce acetaminop hen. (Same as: Tylenol with Codeine # 3) acetaminoph No Notes: Do M emoria en-codeine 4-10 not exceed l #3 00:12: 4gm/day of Counce acetaminop hen. (Same as: Tylenol with Codeine # 3) acetaminoph No Notes: Do M emoria en-codeine 4-10 not exceed l #3 00:12: 4gm/day of Marty acetaminop hen. (Same as: Tylenol with Codeine # 3) acetaminoph No Notes: Do M emoria en-codeine 4-10 not exceed l #3 00:12: 4gm/day of Counce acetaminop hen. (Same as: Tylenol with Codeine [...] oria 4- tab, l 22:00: Route: PO, Counce 00 Drug form: TAB, BID, Dosing Weight [...] l Tablet 22:00: Route: PO, Skylar nn [[facility]] 00 Drug form: TAB, BID, Dosing Weight [...] tab, l Tablet 22:00: Route: PO, Skylar [[facility]] Drug form: TAB, BID, Dosing Weight 97.273, kg, Start date: 08/29/20 17:00:00 CDT, Duration: 30 day, Stop date: 09/28/20 9:00:00 CDT, 0 Buspirone 2020-0 No Notes: Memori a 08-29 (Same As: l 22:00: BuSpar) Lisinopril 2020-0 No 40 mg, 1 Mem oria - tab, l 22:00: Route: PO, Counce 00 Drug form: TAB, BID, Dosing Weight [...] oria 4-09 tab, l 22:00: Route: PO, Counce Drug form: TAB, BID, Dosing Weight 97.273, [...] tartrate 4-09 tab, l 22:00: Route: PO, Counce 00 Drug form: TAB, BID, Dosing Weight [...] Notes: Memoria 4-09 (Same l 17:07: as:MORPhin Counce 00 e Sulfate) Morphine No Notes: Memoria 4-09 (Same l 17:07: as:MORPhin Counce 00 e Sulfate) Morphine No Notes: Memoria 4-09 (Same l 17:07: as:MORPhin Counce 00 e Sulfate) Morphine No Notes: Memoria 4-09 (Same l 17:07: as:MORPhin Marty 00 e Sulfate) Morphine No Notes: Memoria 4-09 (Same l 17:07: as:MORPhin Counce 00 e Sulfate) Morphine No Notes: Memoria [...] 30 tab, 0 coated Refill(s), tablet Pharm[facility]: [facility], 162.56, cm, 08/29/20 5:30:00 CDT, Height, 97.273, kg, 08/29/20 5:30:00 CDT, Weight pantoprazol 2021-0 Yes 40 mg = 1 M emoria e 40 mg 4-09 tab, PO, l oral 15:27: Daily, # Counce enteric 00 30 tab, 0 coated Refill(s), tablet Pharmacy: [facility] 149, 162.56, cm, 08/29/20 5:30:00 CDT, Height, 97.273, kg, 08/29/20 5:30:00 CDT, Weight pantoprazol 2021-0 Yes 40 mg = 1 M emoria e 40 mg 4-09 tab, PO, l oral 15:27: Daily, # Counce enteric 00 30 tab, 0 coated Refill(s), tablet Pharmacy: [facility] 149, 162.56, cm, 08/29/20 5:30:00 CDT, Height, 97.273, kg, 08/29/20 5:30:00 CDT, Weight pantoprazol 2021-0 Yes 40 mg = 1 M emoria e 40 mg 4-09 tab, PO, l oral 15:27: Daily, # Marty enteric 00 30 tab, 0 coated Refill(s), tablet Pharmacy: [facility] 149, 162.56, cm, 08/29/20 5:30:00 CDT, Height, 97.273, kg, 08/29/20 5:30:00 CDT, Weight pantoprazol 2021-0 Yes 40 mg = 1 M emoria e 40 mg 4-09 tab, PO, l oral 15:27: Daily, # Counce enteric 00 30 tab, 0 coated Refill(s), tablet Pharm[facility]: [facility], 162.56, cm, 08/29/20 5:30:00 CDT, Height, 97.273, kg, 08/29/20 5:30:00 CDT, Weight pantoprazol 2021-0 Yes 40 mg = 1 M emoria e 40 mg 4-09 tab, PO, l oral 15:27: Daily, # Counce enteric 00 30 tab, 0 coated Refill(s), tablet Pharmacy: [facility] 149, 162.56, cm, 08/29/20 5:30:00 CDT, Height, 97.273, kg, 08/29/20 5:30:00 CDT, Weight pantoprazol 2020-0 Yes 40 mg = 1 M emoria e 40 mg 4-09 tab, PO, l oral 15:27: Daily, # Marty enteric 00 30 tab, 0 coated Refill(s), tablet Pharmacy: [facility] 149, 162.56, cm, 08/29/20 5:30:00 CDT, Height, 97.273, kg, 08/29/20 5:30:00 CDT, Weight pantoprazol 2020-0 No 40 mg = 1 M emoria e 40 mg 4-09 tab, PO, l oral 15:26: Daily, # Counce enteric 00 30 tab, 0 coated Refill(s) tablet sucralfate 2020-0 Yes 1 gm = 1 Mem oria 1 g oral 4-09 tab, PO, l tablet 15:26: Q12H, # 28 Skylar nn 00 tab, 0 Refill(s), Pharmacy: [place] [id number], 162.56, cm, 08/29/20 5:30:00 CDT, Height, 97.273, kg, 08/29/20 5:30:00 CDT, Weight pantoprazol 2020-0 No 40 mg = 1 M emoria e 40 mg 4-09 tab, PO, l oral 15:26: Daily, # Counce enteric 00 30 tab, 0 coated Refill(s) tablet sucralfate 2020-0 Yes 1 gm = 1 Mem oria 1 g oral 4-09 tab, PO, l tablet 15:26: Q12H, # 28 Skylar nn 00 tab, 0 Refill(s), Pharmacy: [facility] 149, 162.56, cm, 08/29/20 5:30:00 CDT, [...] Skylar nn 00 tab, 0 Refill(s), Pharmacy: [facility] 149, 162.56, cm, 08/29/20 5:30:00 CDT, [...] Skylar nn 00 tab, 0 Refill(s), Pharmacy: [facility] 149, 162.56, cm, 08/29/20 5:30:00 CDT, [...] Skylar nn 00 tab, 0 Refill(s), Pharmacy: [facility] 149, 162.56, cm, 08/29/20 5:30:00 CDT, [...] Skylar nn 00 tab, 0 Refill(s), Pharmacy: [facility] 149, 162.56, cm, 08/29/20 5:30:00 CDT, [...] Skylar nn 00 tab, 0 Refill(s), Pharmacy: [facility] 149, 162.56, cm, 08/29/20 5:30:00 CDT, Height, 97.273, kg, 08/29/20 5:30:00 CDT, Weight Saline No Notes: Memoria Flush 0.9% 4-09 (Same as: l 15:25: BD Counce 00 Posiflush) Lorazepam No Notes: Memori a 4-09 (Same as: l 15:25: Ativan) Saline No Notes: Memoria Flush 0.9% 4-09 (Same as: l 15:25: BD Counce 00 Posiflush) Lorazepam No Notes: Memori a 4-09 (Same as: l 15:25: Ativan) Saline No Notes: Memoria Flush 0.9% 4-09 (Same as: l 15:25: BD Counce 00 Posiflush) Saline No Notes: Memoria Flush 0.9% 4-09 (Same as: l 15:25: BD Counce 00 Posiflush) Lorazepam No Notes: Memori a 4-09 (Same as: l 15:25: Ativan) Lorazepam No Notes: Memori a 4-09 (Same as: l 15:25: Ativan) Marty Saline No Notes: Memoria Flush 0.9% 4-09 (Same as: l 15:25: BD Counce Posiflush) Lorazepam No Notes: Memori a 4-09 (Same as: l 15:25: Ativan) Marty 00 Saline No Notes: Memoria Flush 0.9% 4-09 (Same as: l 15:25: BD Marty Posiflush) Lorazepam No Notes: Memori a 4-09 (Same as: l 15:25: Ativan) Marty 00 Saline No Notes: Memoria Flush 0.9% 4-09 (Same as: l 15:25: BD Counce Posiflush) Lorazepam No Notes: Memori a 4-09 [...] Drug form: l mg + 15:00: INJ, Counce Dosing Weight 97.3, kg, Start date: 08/29/20 10:00:00 CDT, Stop date: 08/29/20 11:00:00 CDT Isuprel HCl No Route: IV, Memoria (ANES) 0.2 08-29 Drug form: l mg + 15:00: INJ, Counce Dosing Weight 97.3, kg, Start date: 08/29/20 [...] Drug form: l mg + 15:00: INJ, Counce 00 Dosing Weight 97.3, kg, Start date: [...] 00 Stop date: 08/29/20 9:18:00 CDT heparin No [...] ONCE, Stop date: 08/29/20 9:18:00 CDT Naloxone 0 No 0.4 mg, Memori a 08-29 Route: l 14:01: IVP, Counce 00 Q2MIN, Dosing Weight 97.273, kg, PRN [...] Memori a 08-29 Route: l 14:01: IVP, Counce 00 Q5Min, Dosing Weight 97.273, kg, PRN Elevated BP, Start date: 08/29/20 9:01:00 CDT, Duration: 5 doses or times, Stop date: Limited # of times Acetaminoph 2020-0 No 1,000 mg, M emoria en 08-29 Route: PO, l 14:01: Drug form: Counce 00 TAB, ONCE, Dosing Weight 97.273, kg, [...] lisa 08-29 Route: l 14:01: IVP, PRN, Counce 00 Dosing Weight 97.273, kg, PRN Benzodiaze pine Reversal, Initial dose, Start date: 08/29/20 9:01:00 CDT, Duration: 30 day, Stop date: 09/28/20 9:00:00 CDT Naloxone 1-0 No 0.4 mg, Memori a 08-29 Route: l 14:01: IVP, Counce 00 Q2MIN, Dosing Weight 97.273, kg, PRN [...] 08-29 Route: PO, l 14:01: Drug form: Counce 00 TAB, ONCE, Dosing Weight 97.273, kg, [...] lisa 08-29 Route: l 14:01: IVP, PRN, Counce 00 Dosing Weight 97.273, kg, PRN Benzodiaze [...] ia 08-29 Route: l 14:01: IVP, ONCE, Counce 00 Dosing Weight 97.273, kg, PRN Nausea [...] 08-29 Route: PO, l 14:01: Drug form: Counce 00 TAB, ONCE, Dosing Weight 97.273, kg, [...] oria ne 08-29 Route: l 14:01: IVP, Counce 00 Q5Min, Dosing Weight 97.273, kg, PRN [...] 08-29 Route: PO, l 14:01: Drug form: Counce 00 TAB, ONCE, Dosing Weight 97.273, kg, PRN Pain Score 1-3, Start date: 08/29/20 9:01:00 CDT Oxycodone 2021-0 No 5 mg, Memoria Hydrochlori 4 Route: PO, l de 5 MG 14:01: Drug form: Herm ariel Oral Tablet 00 TAB, Q4H, Dosing Weight 97.273, kg, PRN Pain Score 4-6, Start date: 08/29/20 9:01:00 CDT, Duration: 30 day, Stop date: 09/28/20 9:00:00 CDT Hydromorpho 2021-0 No 0.5 mg, Mem oria ne 4 Route: l 14:01: IVP, Marty 00 Q5Min, [...] Memori a 08-29 Route: l 14:01: IVP, Counce 00 Q2MIN, Dosing Weight 97.273, kg, PRN Narcotic Reversal, Start date: 08/29/20 9:01:00 CDT, Duration: 8 doses or times, Stop date: Limited # of times Flumazenil 1-0 No 0.2 mg, Caesar lisa - Route: l 14:01: IVP, PRN, Counce 00 Dosing Weight 97.273, kg, PRN Benzodiaze [...] Memori a 08-29 Route: l 14:01: IVP, Counce 00 Q5Min, Dosing Weight 97.273, kg, PRN Elevated BP, Start date: 08/29/20 9:01:00 CDT, Duration: 5 doses or times, Stop date: Limited # of times Acetaminoph 1-0 No 1,000 mg, M emoria en 08-29 Route: PO, l 14:01: Drug form: Counce 00 TAB, ONCE, Dosing Weight 97.273, kg, [...] ia 08-29 Route: l 14:01: IVP, ONCE, Counce 00 Dosing Weight 97.273, kg, PRN Nausea [...] 08-29 Route: PO, l 14:01: Drug form: Counce 00 TAB, ONCE, Dosing Weight 97.273, kg, [...] oria ne 08-29 Route: l 14:01: IVP, Counce 00 Q5Min, Dosing Weight 97.273, kg, PRN [...] Memori a 08-29 Route: l 14:01: IVP, Counce 00 Q2MIN, Dosing Weight 97.273, kg, PRN [...] lisa 08-29 Route: l 14:01: IVP, PRN, Counce 00 Dosing Weight 97.273, kg, PRN Benzodiaze [...] Drug form: l 10 13:15: INJ, Start Counce microgram 00 date: 08/29/20 8:15:00 CDT, Stop [...] 4-09 Total l 0.9% IV 12:30: Volume: Counce (ANES) 1000 00 1,000, mL Start date: [...] 4-09 Total l 0.9% IV 12:30: Volume: Counce (ANES) 1000 00 1,000, mL Start date: 08/29/20 7:30:00 CDT, Stop date: 08/29/20 8:30:00 CDT Sodium 2021-0 No Route: IV, Memor ia Chloride 4-09 Total l 0.9% IV 12:30: Volume: Marty (ANES) 1000 00 1,000, mL Start date: 08/29/20 7:30:00 CDT, Stop date: 08/29/20 8:30:00 CDT busPIRone 2021-0 Yes 30 mg = 1 [...] PO, l Hydrochlori 11:42: Q24H, # 30 Counce de 150 MG 00 tab, 0 Extended Refill(s) Release Tablet 24 HR Yes 150 mg = 1 Memori a Bupropion 4-09 tab, PO, l Hydrochlori 11:42: Q24H, # 30 Counce de 150 MG 00 tab, 0 Extended Refill(s) Release Tablet 24 HR Yes 150 mg = 1 Memori a Bupropion 4-09 tab, PO, l Hydrochlori 11:42: Q24H, # 30 Marty de 150 MG 00 tab, 0 Extended Refill(s) Release Tablet 24 HR Yes 150 mg = 1 Memori a Bupropion -09 tab, PO, l Hydrochlori 11:42: Q24H, # 30 Counce de 150 MG 00 tab, 0 Extended Refill(s) Release Tablet 24 HR Yes 150 mg = 1 Memori a Bupropion -09 tab, PO, l Hydrochlori 11:42: Q24H, # 30 Marty de 150 MG 00 tab, 0 Extended Refill(s) Release Tablet 24 0 Yes 150 mg = 1 Memori a Bupropion -09 tab, PO, l Hydrochlori 11:42: Q24H, # 30 Counce de 150 MG 00 tab, 0 Extended Refill(s) Release Tablet 24 HR Yes 150 mg = 1 Memori a Bupropion - tab, PO, l Hydrochlori 11:42: Q24H, # 30 Marty de 150 MG 00 tab, 0 Extended Refill(s) Release Tablet apixaban 2020-0 Yes 5 mg, PO, Me moria MG Oral 4 Q12H, tab, l Tablet 11:41: 0 Counce [Eliquis] 00 Refill(s), For Atrial Fibrilatio n [...] 4- Q12H, tab, l Tablet 11:41: 0 Counce [Eliquis] 00 Refill(s), For Atrial Fibrilatio n [...] tab, PO, l tablet 11:38: Daily, # Counce 00 90 tab, 3 Refill(s) AMIODarone 2020-0 Yes 200 mg = 1 M emoria 200 mg oral 4-09 tab, PO, l tablet 11:38: Daily, # Marty 90 tab, 3 Refill(s) AMIODarone 0 Yes 200 mg = 1 M emoria 200 mg oral 4-09 tab, PO, l tablet 11:38: Daily, # Counce 00 90 tab, 3 Refill(s) AMIODarone 2020-0 [...] tab, PO, l tablet 11:38: Daily, # Counce 00 90 tab, 3 Refill(s) normal No [...] 09/28/20 5:29:00 CDT, 2.13, m2, 0 pantoprazol 0 2020- No Metho di e 08-29 st [...] tablet 08-16 st 00:00: Hospita 00 l predniSONE 2021-0 Yes [facility] (Deltasone) 3-13 Health 20 MG [...] mg Health MG tablet 00:00: tablet 00 lisinopril 2019-05 Yes 40mg Take 40 mg [...] daily. [place] tablet 41 [facility] albuterol Yes Univers 90 4-14 [...] 00:00: mouth Hospita 00 daily. l DESCOVY 2016- Yes 1{tbl} QD Take 1 Method i 200-25 mg 3-[address] tablet 00:00: mouth Hospita 00 daily. l ISENTRESS 0 Yes 400mg Q.5D Take 400 [...] Filled Immunization Date Status Comments [facility] e Immunization Name Name PEG FELIZID-19 2020-07-23 Completed [facility] MRNA VACCINATION 00:00:00 [facility] PEG COVID-19 2020-07-23 Completed [facility] MRNA VACCINATION 00:00:00 [facility] PEG COVID-19 2020-07-23 Completed [facility] MRNA VACCINATION 00:00:00 [facility] Thounds COVID-19 2020-07-23 Completed [facility] MRNA VACCINATION 00:00:00 [facility] [employer] NetworksID-19 2020-07-23 Completed [facility] MRNA VACCINATION 00:00:00 [facility] PFIZER COVID-19 2020-07-23 Completed [employer] MRNA VACCINATION 00:00:00 [facility] PFIZER COVID-19 2020-07-23 Completed [facility] MRNA VACCINATION 00:00:00 [facility] PFIZER COVID-19 2020-07-23 Completed [employer] MRNA VACCINATION 00:00:00 [facility] PFIZER COVID-19 2020-07-02 Completed [employer] MRNA VACCINATION 00:00:00 [facility] PFIZER COVID-19 2020-07-02 Completed [employer] MRNA VACCINATION 00:00:00 [facility] PFIZER COVID-19 2020-07-02 Completed [employer] MRNA VACCINATION 00:00:00 [facility] PFIZER COVID-19 2020-07-02 Completed [employer] MRNA VACCINATION 00:00:00 [facility] PFIZER COVID-[place] 2020-07-02 Completed [employer] MRNA VACCINATION 00:00:00 [facility] PEG COVID-[place]it 2020-07-02 Completed [employer] MRNA VACCINATION 00:00:00 [facility] PEG COVID-Dawit 2020-07-02 Completed [employer] MRNA VACCINATION 00:00:00 [facility] PFIZER COVID-Dawit 2020-07-02 Completed [employer] MRNA VACCINATION 00:00:00 [facility] Influenza Virus 2017-03-08 Completed [facility]it [facility] of Vaccine 00:00:00 [facility] Influenza Virus 2014-01-30 Completed Universit y of Vaccine (3+ yrs) 00:00:00 [facility] Pneumococcal 13 2014-01-30 Completed Universit y of Conjugate, PCV13 00:00:00 [facility] dical (Prevnar 13) Branch Pneumococcal 2012-02-16 Completed University o f Polysaccharide, 00:00:00 [facility] PPSV23 (PNEUMOVAX) Branch Influenza Virus [...] [facility] ical PPSV23 (PNEUMOVAX) Branch PPD (TB) 2001-10-04 Completed University of 00:00:00 [facility] Vital Signs Vital Name Observation Time Observation Value Comments Source Systolic blood 2021-11-20 13:47:00 165 mm[Hg] Univer sity of pressure [facility] Diastolic blood 2021-11-20 13:47:00 83 mm[Hg] Unive rsity of pressure [facility] Heart rate 2021-11-20 13:47:00 58 /min [facility] Body temperature 2021-11-20 13:42:00 36.39 Amina [facility] Respiratory rate 2021-11-20 13:42:00 16 /min [facility] Body height 2021-11-20 13:42:00 162.6 cm [facility] Body weight 2021-11-20 13:42:00 84.369 kg [facility] BMI 2021-11-20 13:42:00 31.93 kg/m2 [facility] Systolic blood 2021-07-14 15:18:00 142 mm[Hg] [...] Diastolic blood 2020-12-08 15:48:00 76 mm[Hg] [facility] pressure Heart rate 2020-12-08 15:48:00 64 /min [facility] Body temperature 2020-12-08 15:48:00 36.61 Amina [facility] Respiratory rate 2020-12-08 15:48:00 17 /min [facility] Body height 2020-12-08 15:48:[address] [facility] Body weight 2020-12-08 15:48:[address] [facility] BMI 2020-12-08 15:48:00 37.42 kg/m2 [facility] Oxygen saturation in 2020-12-08 15:48:00 97 /min [facility] Arterial blood by Pulse oximetry Respitory Rate 2020-08-30 13:00:00 [facility] Systolic (mm Hg) 2020-08-30 13:00:00 [facility] Diastolic (mm Hg) 2020-08-30 13:00:00 Mem orial Marty Systolic (mm Hg) 2020-08-30 11:00:00 [facility] Diastolic (mm Hg) 2020-08-30 11:00:00 Mem o[facility] Marty Temperature Oral (F) 2020-08-30 11:00:00 98.4 F [facility] Respitory Rate 2020-08-30 11:00:00 [facility] Respitory Rate 2020-08-30 10:00:00 [facility] Systolic (mm Hg) 2020-08-30 10:00:00 [facility] Diastolic (mm Hg) 2020-08-30 10:00:00 [facility] Temperature Oral (F) 2020-08-30 00:00:00 96.9 F [facility] Temperature Oral (F) 2020-08-29 11:26:00 97.6 F [facility] Height 2020-08-29 10:30:00 162.56 cm [facility] Weight 2020-08-29 10:30:00 [facility] BMI Calculated 2020-08-29 10:30:00 [facility] Procedures Procedure Date / Time Performing Clinician Source Performed ECG 12-LEAD 2021-07-14 15:14:00 Elan Lira [facility] [id number] 2021-06-17 00:00:00 RIKY CLARK [facility] GASTROINTESTINAL PANEL 2020-12-08 22:[facility]00 [facility] X[facility] ABDOMEN 1 VW 2020-12-08 18:06:32 Eliseo Arce spital OR [place] < 1 HOUR 2020-09-05 22:39:00 [facility] SURGICAL PATHOLOGY REQUEST 2020-09-05 21:54:00 [facility] X[facility] CHEST 1 VW PORTABLE 2020-09-05 19:55:00 [facility] DISCHARGE PATIENT 2020-09-05 17:27:55 Lucas [facility] [place] AN ELECTIVE ENDOTRACHEAL 2020-09-05 16:47:23 Ramon Flood i [facility] AIRWAY EGD, INTRAOPERATIVE 2020-09-05 16:27:[address] [facility] [address] [facility] PARTIAL THROMBOPLASTIN TIME 2020-09-05 15:04:00 [facility] (PTT) M PROTHROMBIN TIME WITH INR 2020-09-05 15:04:00 [facility] M. Plan of Care Planned Activity Planned Date Details Comments Source Future Scheduled 2022-01-29 SHINGLES VACCINES (1 Met [facility] Test 14:07:20 of 2) [code = SHINGLES VACCINES (1 of 2)] Future Scheduled 2022-01-29 BREAST CANCER [facility] Test 14:07:20 SCREENING [code = BREAST CANCER SCREENING] Future Scheduled 2022-01-29 COLONOSCOPY SCREENING [facility] Test 14:07:20 [code = COLONOSCOPY SCREENING] Future Scheduled 2022-01-29 HEPATITIS B VACCINES Met [facility] Test 14:07:20 (1 of 3 - Risk 3-dose series) [code = HEPATITIS B VACCINES (1 of 3 - Risk 3-dose series)] Future Scheduled 2022-01-29 COVID-19 VACCINE (3 - [facility] Test 14:07:20 Booster for Pfizer series) [code = COVID-19 VACCINE (3 - Booster for Pfizer series)] Future Scheduled 2022-01-29 65+ PNEUMOCOCCAL [facility] Test 14:07:20 VACCINE (4 - PPSV23 or PCV20) [code = 65+ PNEUMOCOCCAL VACCINE (4 - PPSV23 or PCV20)] Future Scheduled 2022-01-29 INFLUENZA VACCINE Method [facility] Test 14:07:20 [code = INFLUENZA VACCINE] Future Scheduled 2022-01-29 SHINGLES VACCINES (1 Met [facility] Test 14:07:20 of 2) [code = SHINGLES VACCINES (1 of 2)] Future Scheduled 2022-01-29 BREAST CANCER [facility] Test 14:07:20 SCREENING [code = BREAST CANCER SCREENING] Future Scheduled 2022-01-29 COLONOSCOPY SCREENING [facility] Test 14:07:20 [code = COLONOSCOPY SCREENING] Future Scheduled 2022-01-29 HEPATITIS B VACCINES Met [facility] Test 14:07:20 (1 of 3 - Risk 3-dose series) [code = HEPATITIS B VACCINES (1 of 3 - Risk 3-dose series)] Future Scheduled 2022-01-29 COVID-19 VACCINE (3 - [facility] Test 14:07:20 Booster for Pfizer series) [code = COVID-19 VACCINE (3 - Booster for Pfizer series)] Future Scheduled 2022-01-29 65+ PNEUMOCOCCAL [facility] Test 14:07:20 VACCINE (4 - PPSV23 or PCV20) [code = 65+ PNEUMOCOCCAL VACCINE (4 - PPSV23 or PCV20)] Future Scheduled 2022-01-29 INFLUENZA VACCINE Method [facility] Test 14:07:20 [code = INFLUENZA VACCINE] Future Scheduled 2022-01-29 SHINGLES VACCINES (1 Met [facility] Test 14:07:20 of 2) [code = SHINGLES VACCINES (1 of 2)] Future Scheduled 2022-01-29 BREAST CANCER [facility] Test 14:07:20 SCREENING [code = BREAST CANCER SCREENING] Future Scheduled 2022-01-29 COLONOSCOPY SCREENING [facility] Test 14:07:20 [code = COLONOSCOPY SCREENING] Future Scheduled 2022-01-29 HEPATITIS B VACCINES Met [facility] Test 14:07:20 (1 of 3 - Risk 3-dose series) [code = HEPATITIS B VACCINES (1 of 3 - Risk 3-dose series)] Future Scheduled 2022-01-29 COVID-19 VACCINE (3 - [facility] Test 14:07:20 Booster for Pfizer series) [code = COVID-19 VACCINE (3 - Booster for Pfizer series)] Future Scheduled 2022-01-29 65+ PNEUMOCOCCAL [facility] Test 14:07:20 VACCINE (4 - PPSV23 or PCV20) [code = 65+ PNEUMOCOCCAL VACCINE (4 - PPSV23 or PCV20)] Future Scheduled 2022-01-29 INFLUENZA VACCINE Method [facility] Test 14:07:20 [code = INFLUENZA VACCINE] Future Scheduled 2022-01-29 SHINGLES VACCINES (1 Met [facility] Test 14:07:20 of 2) [code = SHINGLES VACCINES (1 of 2)] Future Scheduled 2022-01-29 BREAST CANCER [facility] Test 14:07:20 SCREENING [code = BREAST CANCER SCREENING] Future Scheduled 2022-01-29 COLONOSCOPY SCREENING [facility] Test 14:07:20 [code = COLONOSCOPY SCREENING] Future Scheduled 2022-01-29 HEPATITIS B VACCINES Met [facility] Test 14:07:20 (1 of 3 - Risk 3-dose series) [code = HEPATITIS B VACCINES (1 of 3 - Risk 3-dose series)] Future Scheduled 2022-01-29 COVID-19 VACCINE (3 - [facility] Test 14:07:20 Booster for Pfizer series) [code = COVID-19 VACCINE (3 - Booster for Pfizer series)] Future Scheduled 2022-01-29 65+ PNEUMOCOCCAL [facility] Test 14:07:20 VACCINE (4 - PPSV23 or PCV20) [code = 65+ PNEUMOCOCCAL VACCINE (4 - PPSV23 or PCV20)] Future Scheduled 2022-01-29 INFLUENZA VACCINE Method [facility] Test 14:07:20 [code = INFLUENZA VACCINE] Future Scheduled 2022-01-20 SHINGLES VACCINES (1 Met [facility] Test 06:12:34 of 2) [code = SHINGLES VACCINES (1 of 2)] Future Scheduled 2022-01-20 Screening for [facility] Test 06:12:34 malignant neoplasm of cervix (procedure) [code = [id number]] Future Scheduled 2022-01-20 BREAST CANCER [facility] Test 06:12:34 SCREENING [code = BREAST CANCER SCREENING] Future Scheduled 2022-01-20 COLONOSCOPY SCREENING [facility] Test 06:12:34 [code = COLONOSCOPY SCREENING] Future Scheduled 2022-01-20 HEPATITIS B VACCINES Met [facility] Test 06:12:34 (1 of 3 - Risk 3-dose series) [code = HEPATITIS B VACCINES (1 of 3 - Risk 3-dose series)] Future Scheduled 2022-01-20 COVID-19 VACCINE (3 - [facility] Test 06:12:34 Booster for Pfizer series) [code = COVID-19 VACCINE (3 - Booster for Pfizer series)] Future Scheduled 2022-01-20 65+ PNEUMOCOCCAL [facility] Test 06:12:34 VACCINE (4 - PPSV23 or PCV20) [code = 65+ PNEUMOCOCCAL VACCINE (4 - PPSV23 or PCV20)] Future Scheduled 2022-01-20 INFLUENZA VACCINE Method [facility] Test 06:12:34 [code = INFLUENZA VACCINE] Future Scheduled 2022-01-16 SHINGLES VACCINES (1 Met [facility] Test 12:09:25 of 2) [code = SHINGLES VACCINES (1 of 2)] Future Scheduled 2022-01-16 Screening for [facility] Test 12:09:25 malignant neoplasm of cervix (procedure) [code = [id number]] Future Scheduled 2022-01-16 BREAST CANCER [facility] Test 12:09:25 SCREENING [code = BREAST CANCER SCREENING] Future Scheduled 2022-01-16 COLONOSCOPY SCREENING [facility] Test 12:09:25 [code = COLONOSCOPY SCREENING] Future Scheduled 2022-01-16 HEPATITIS B VACCINES Met [facility] Test 12:09:25 (1 of 3 - Risk 3-dose series) [code = HEPATITIS B VACCINES (1 of 3 - Risk 3-dose series)] Future Scheduled 2022-01-16 COVID-19 VACCINE (3 - [facility] Test 12:09:25 Booster for Pfizer series) [code = COVID-19 VACCINE (3 - Booster for Pfizer series)] Future Scheduled 2022-01-16 65+ PNEUMOCOCCAL [facility] Test 12:09:25 VACCINE (4 - PPSV23 or PCV20) [code = 65+ PNEUMOCOCCAL VACCINE (4 - PPSV23 or PCV20)] Future Scheduled 2022-01-16 INFLUENZA VACCINE Method [facility] Test 12:09:25 [code = INFLUENZA VACCINE] Future Scheduled 2022-01-14 SHINGLES VACCINES (1 Met [facility] Test 04:11:46 of 2) [code = SHINGLES VACCINES (1 of 2)] Future Scheduled 2022-01-14 Screening for [facility] Test 04:11:46 malignant neoplasm of cervix (procedure) [code = [id number]] Future Scheduled 2022-01-14 BREAST CANCER [facility] Test 04:11:46 SCREENING [code = BREAST CANCER SCREENING] Future Scheduled 2022-01-14 COLONOSCOPY SCREENING [facility] Test 04:11:46 [code = COLONOSCOPY SCREENING] Future Scheduled 2022-01-14 HEPATITIS B VACCINES Met [facility] Test 04:11:46 (1 of 3 - Risk 3-dose series) [code = HEPATITIS B VACCINES (1 of 3 - Risk 3-dose series)] Future Scheduled 2022-01-14 COVID-19 VACCINE (3 - [facility] Test 04:11:46 Booster for Pfizer series) [code = COVID-19 VACCINE (3 - Booster for Pfizer series)] Future Scheduled 2022-01-14 65+ PNEUMOCOCCAL [facility] Test 04:11:46 VACCINE (4 - PPSV23 or PCV20) [code = 65+ PNEUMOCOCCAL VACCINE (4 - PPSV23 or PCV20)] Future Scheduled 2022-01-14 INFLUENZA VACCINE Method [facility] Test 04:11:46 [code = INFLUENZA VACCINE] Future Scheduled 2021-08-26 Screening for [facility] Test 13:02:23 malignant neoplasm of cervix (procedure) [code = [id number]] Future Scheduled 2021-08-26 BREAST CANCER [facility] Test 13:02:23 SCREENING [code = BREAST CANCER SCREENING] Future Scheduled 2021-08-26 COLONOSCOPY SCREENING [facility] Test 13:02:23 [code = COLONOSCOPY SCREENING] Future Scheduled 2021-08-26 Screening for [facility] Test 13:02:23 malignant neoplasm of lung (procedure) [code = 985209428] Future Scheduled 2021-08-26 SHINGLES VACCINES (#1) [facility] Test 13:02:23 [code = SHINGLES VACCINES (#1)] Future Scheduled 2021-08-26 COVID-19 VACCINE (3 - [facility] Test 13:02:23 Pfizer risk 4-dose series) [code = COVID-19 VACCINE (3 - Pfizer risk 4-dose series)] Future Scheduled 2021-08-26 65+ [facility]CCAL [facility] Test 13:02:23 VACCINE (4 of 4 - PPSV23) [code = 65+ PNEUMOCOCCAL VACCINE (4 of 4 - PPSV23)] Future Scheduled 2021-08-26 INFLUENZA VACCINE Method [facility] Test 13:02:23 [code = INFLUENZA VACCINE] Encounters Start End Encounter Admission Attending Care Care Encounter Source Date/Time Date/Time Type Type Clinicians Facility Department ID 2021-11-16 Outpatient [facility] [id number] [place] 10:32:47 [id number] [facility] 2021-07-14 Outpatient PANKAJ [facility] [id number] [place] 09:33:[facility] 2021-11-20 2021-11-20 Office [facility], [facility] ALICE [id number] [facility] 08:30:00 09:00:00 Visit [facility] 350.1.13.10 i [facility] 4.2.7.2.686 Richi bach [id number] [place] [id number] [place] 2021-08-05 2021-08-05 Inpatient RAUL Stonegary, HCACL OUTD [id number] [facility] 05:24:00 05:24:00 Mike 31 [facility] 2021-07-14 2021-07-14 Office Pankaj, [facility] 6400 1.2.840.114 [id number] [place] 08:45:00 09:34:[address] 350.1.13.58 Health 9.2.7.2.686 [id number] 1 2021-07-09 2021-07-09 Telephone Ap, KIMBERLEY 6400 1.2.840.114 [id number] [place] 00:00:00 00:00:[address] 350.1.13.58 Health 9.2.7.2.686 [id number] 1 2021-06-17 2021-06-17 Inpatient RAUL Lund, EDUARDOCL INTE.02 [id number] [facility] 10:56:00 14:36:00 Mike 47 [facility] 2021-04-28 2021-04-28 Telephone Chihara, 1.2.840.5 [id number] Methodi 00:00:00 00:00:[address] 3.430.2.7 Hospit a .3.675032 l .8 2021-04-28 2021-04-28 Telephone Jailyn, 1.2.840.4 [id number] 21 [id number] Methodi 00:00:00 00:00:[address] 3.430.2.7 Hospit a .3.600495 l .8 2021-03-31 2021-03-31 Orders Jillsenlion, 1.2.840.1 [id number] 21 [id number] Methodi 00:00:00 00:00:00 Only Sarai Lieberman 06843.1.1 979 s t 3.430.2.7 Hospit a .3.026564 l .8 2021-03-31 2021-03-31 Orders Roslynlion, 1.2.840.1 [id number] 21 [id number] Methodi 00:00:00 00:00:00 Only Sarai Lieberman 28002.1.1 979 s t 3.430.2.7 Hospit a .3.796144 l .8 2021-03-24 2021-03-24 Telephone Jailyn, 1.2.840.5 [id number] 21 [id number] Methodi 00:00:00 00:00:[address] 3.430.2.7 Hospit a .3.379982 l .8 2021-03-24 2021-03-24 Telephone Jailyn, 1.2.840.1 [id number] 21 [id number] Methodi 00:00:00 00:00:[address] 3.430.2.7 Hospit a .3.160377 l .8 2021-01-19 2021-01-19 Telephone Pelletier, 1.2.840.1 [id number] 2100 [id number] Methodi 00:00:00 00:00:[address] 3.430.2.7 Hospit a .3.586151 l .8 2020-12-12 2020-12-12 Office Hematpour, UTP 6400 1.2.840.114 12 [id number] 07:42:02 08:18:[address] 350.1.13.58 9.2.7.2.686 [id number] 1 2020-12-09 2020-12-09 Telephone [facility], 1.2.840.1 [id number] Methodi 00:00:00 00:00:00 Sarai Corbin. 66868.1.1 316 s t 3.430.2.7 Hospit a .3.495927 l .8 2020-12-08 2020-12-08 [facility], 1.2.840.1 [id number] 2100 [id number] Methodi 12:35:54 23:59:00 Encounter Ray [address]36.1.[address] 3.430.2.7 Hospit a .3.647806 l .8 2020-12-08 2020-12-08 Lab [facility], 1.2.840.1 [id number] Methodi 17:25:00 17:30:[address] 3.430.2.7 Hospit a .3.314017 l .8 2020-12-08 2020-12-08 Office [facility], 1.2.840.1 [id number] Methodi 10:30:00 11:39:56 Visit Ray 10252.1.[address] 3.430.2.7 Hospit a .3.499740 l .8 2020-12-08 2020-12-08 Travel 1.2.840.1 1.2.665.397 2504 [id number] Methodi 00:00:00 00:00:[address] 3.430.2.7 0.2.7.3.698 Ho spita .3.435176 084.8 l .8 2020-12-02 2020-12-02 [employer] [facility] 1.2.840.114 8 [id number] 10:20:06 10:36:19 Visit Y HEALTH 350.1.13.10 CLINICS 4.2.7.2.686 [id number] 316 2020-11-25 2020-11-25 [facility] 1.2.840.114 [id number] 11:06:30 11:58:14 Visit Amarilismeredtih Hairston [employer] 350.1.13.10 [facility] 4.2.7.2.686 MATERNAL [id number] & CHILD 107 [facility] 2020-11-25 2020-11-25 [facility] 1.2.301.368 5985 4592 00:00:00 00:00:00 [facility] 350.1.13.10 [facility] 4.2.7.2.686 [id number] 089 2020-11-25 2020-11-25 Telephone [facility] 1.2.831.689 6021 0821 00:00:00 00:00:00 [facility] 350.1.13.10 [facility] 4.2.7.2.686 MATERNAL [id number] & CHILD 107 [facility] 2020-11-14 2020-11-14 Abstract Clark, 1.2.840.1 [id number] Methodi 00:00:00 00:00:[address] 3.430.2.7 Hospit a .3.465378 l .8 2020-11-14 2020-11-14 Telephone Clark 1.2.840.1 [id number] 2100 [id number] Methodi 00:00:00 00:00:[address] 3.430.2.7 Hospit a .3.327753 l .8 2020-11-07 2020-11-07 Telephone KIMBERLEY Ortiz 6400 1.2.840.114 124 [id number] 00:00:00 00:00:[address] 350.1.13.58 9.2.7.2.686 [id number] 1 2020-10-27 2020-10-27 Telephone Cade, 1.2.840.2 [id number] Methodi 00:00:00 00:00:[address] 3.430.2.7 Hospit a .3.678983 l .8 2020-10-24 2020-10-24 Telephone Clark, 1.2.840.1 [id number] 2099 [id number] Methodi 00:00:00 00:00:[address] 3.430.2.7 Hospit a .3.455175 l .8 2020-10-06 2020-10-12 [facility], 1.2.840.1 [id number] Methodi 15:30:00 00:08:46 ne Ray 58459.1.[address] 3.430.2.7 Hospit a .3.653445 l .8 2020-09-30 2020-09-30 [facility], 1.2.840.6 [id number] Methodi 00:00:00 00:00:[address] 3.430.2.7 Hospit a .3.061355 l .8 2020-09-21 2020-09-21 [facility] 1.2.840.1 1.2.972.959 [id number] [id number] Methodi 00:00:00 00:00:[address] 3.430.2.7 0.2.7.3.698 spita .3.282856 084.8 l .8 2020-09-06 2020-09-06 [facility] 1.2.840.1 [id number] [id number] Methodi 17:42:30 23:59:[address] 3.430.2.7 Hospit a .3.590475 l .8 2020-09-06 2020-09-06 [facility], 1.2.840.1 [id number] 2099 [id number] Methodi 16:50:00 17:41:00 Encounter Ray [address]127.1.[address] 3.430.2.7 Hospit a .3.939239 l .8 2020-09-05 2020-09-05 Hospital [facility], 1.2.840.1 [id number] 2100 [id number] Methodi 09:17:00 19:45:00 Encounter Ray [address]10.1.[address] 3.430.2.7 Hospit a .3.414063 l .8 2020-09-05 2020-09-05 Surgery [facility], 1.2.840.1 [id number] Methodi 11:30:00 13:15:[address] 3.430.2.7 Hospit a .3.682605 l .8 2020-09-05 2020-09-05 Anesthesia [facility], 1.2.840.1 [id number] 043 [id number] Methodi 11:27:00 12:20:00 Event Anupamwathi 84889.1.1 243 s t V. 3.430.2.7 Hospit a .3.897409 l .8 2020-09-05 2020-09-05 Travel 1.2.840.1 1.2.047.183 9258 [id number] Methodi 00:00:00 00:00:[address] 3.430.2.7 0.2.7.3.698 Ho spita .3.392147 084.8 l .8 2020-09-04 2020-09-04 [facility] 1.2.840.1 [id number] Methodi 00:00:00 00:00:00 Sarai M. 44942.1.1 762 s t 3.430.2.7 Hospit a .3.873204 l .8 2020-09-02 2020-09-02 Telephone Carol Ann, 1.2.840.7 [id number] Methodi 00:00:00 00:00:00 Sarai M. 73252.1.1 344 s t 3.430.2.7 Hospit a .3.862164 l .8 2020-08-29 2020-08-30 Bedded [facility] [id number] [facility] 10:20:00 14:10:00 Outpatient r Counce 00 l [facility] 2020-08-29 2020-08-30 Outpatient [facility], [facility] CAR 7500 [facility] 05:20:00 09:10:00 [facility] Results Test Description Test Time Test Comments Results Result Comments Source Novel Coronavirus 2019 Inhouse 2021-08-03 18:08:00 Test Item Value Reference Range Interpretation Comme nts Novel Coronavirus 2018 Negative Negative Posit bruno results are indicative of the Inhouse (test code = presenc e [id number]-HyC-8 RNA, clinical COVNONPUI) correlation wit h patient [...] qualitative detection of nucleic acid s from spxDKWY-UuL-4 virus and diagn osis of SARS-CoV-2 virusinfection. It is an Emergency Use Authorization ( EUA) testauthorized by the U.S. FDA. BASIC METABOLIC [id number] 09:37:00 Test Item Value Reference Range Interpretation [...] = 9.0 mg/dL 8.0-10.5 N CA) PROTHROMBIN [id number] 09:32:00 Test Item Value Reference Range Interpretation [...] (to prevent recurrent infar ct). 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 [facility] - XR CHEST 1 [id number] 00:00:00 [facility] : 1955 Sex: F FAX: Carmenza Kelly [phone] [facility]: St: ADM FAX: Mike Scales MD [phone] FAX: Bahman Chopra [phone] Name: LIO WATTS [facility] : 1955 Age/S: 66/F [address] [place] [address] Unit #: [id number] Loc: KWABENA Bernstein [address] Phys: Bahman ChopraP Acct: [id number] Dis Date: Status: ADM IN PHONE #: [phone] Exam Date: 06/17/2021 1320 FAX #: [phone] Reason: WATCHMAN EXAMS: CPT CODE: [id number] XR CHEST 1 V 00022 PROCEDURE INFORMATION: Exam: XR Chest Exam date [...] Chopra Technologist: RT Taylor(R) Trnscrd Date/Time/By: 06/17/2021 (8827) : By: IselaKWL Orig Print D/T: S: 06/17/2021 (8954) PAGE 1 Signed ReportCOVID 19 Asymptomatic IH [...] high or waivedcomplexit y tests. BASIC METABOLIC [id number] 11:37:00 Test Item Value Reference Range Interpretation [...] code = 9.0 mg/dL 8.0-10.5 N CA) [id number] 11:37:00 Test Item Value Reference Range Interpretation Comments PREALBUMIN (test code = PREALB) 24.3 mg/dL 16.0-40.0 N PROTHROMBIN [id number] 11:03:00 Test Item Value Reference Range Interpretation [...] (to prevent recurrent infar ct). CBC W/AUTO [id number] 10:59:00 Test Item Value Reference Range Interpretation [...] 3/uL 0.0-0.1 N NRBC#) - CHEST 2 [id number] 00:00:00 [facility] : 1955 Sex: F FAX: Carmenza Kelly DO [phone] [facility]: St: PRE FAX: Mike Scales MD [phone] Name: LIO WATTS [facility] [place] : 1955 Age/S: 66/F 19 [place] [address] Unit #: [id number] [place]: [place] [address] Phys: Mike Lund MD Acct: [id number] Dis Date: Status: PRE SDC PHONE #: [phone] Exam Date: 06/16/2021 1120 FAX #: [phone] Reason: PREOP EXAMS: CPT CODE: [id number] XR CHEST 2 V 09435 PROCEDURE INFORMATION: Exam: XR Chest Exam date [...] By: [email or web address] Orig Print D/T: S: 06/16/2021 (8342) PAGE 1 Signed ReportGastrointestinal gopaq6163-65-56 04:35:05 Test Item Value Reference Interpretation Comments [...] Rotavirus PCR (test Not Detected code = 8140442) Salmonella PCR (test Not Detected code = [...] PCR Not Detected (test code = 7124) [facility] niwaltt2051-13-81 19:30:47 Test Item Value Reference Range Interpretation Comments Case number (test [id number] code = 9534145) Surgical pathology See link below for PDF report (test code = Lab Report 2255) Result status (test This is Supplemental code = 2714430) Report for [id number] [facility]2021-04-09 16:31:00 Test Item Value Reference Range Interpretation Comments POC Activated Clotting Time (test code 153 s = POC Activated Clotting Time) [facility]IIEWXBOD3807[facility] 16:31:00 Test Item Value Reference Range Interpretation Comments POC Activated Clotting Time (test code 153 s = POC Activated Clotting Time) [facility] AllenGnpqxewWLMFWNSYVH9313-26-82 16:31:00 Test Item Value Reference Range Interpretation Comments POC Activated Clotting Time (test code 153 s = POC Activated Clotting Time) [facility] AllenPdydbxlDBEJHTSWHM3026-37-91 16:31:00 Test Item Value Reference Range Interpretation Comments POC Activated Clotting Time (test code 153 s = POC Activated Clotting Time) [facility] AllenKuvklkdXSTDYXEQNO7876-24-04 16:31:00 Test Item Value Reference Range Interpretation Comments POC Activated Clotting Time (test code 153 s = POC Activated Clotting Time) [facility] AllenVavklgxMQBTELBQOL5994-12-57 16:31:00 Test Item Value Reference Range Interpretation Comments POC Activated Clotting Time (test code 153 s = POC Activated Clotting Time) [facility] AllenVaczwruHHVMXVBQQO8689-26-98 16:31:00 Test Item Value Reference Range Interpretation Comments POC Activated Clotting Time (test code 153 s = POC Activated Clotting Time) [facility] AllenYnwiasxROCJLXHAUY8989-38-31 14:37:00 Test Item Value Reference Range Interpretation Comments POC Activated Clotting Time (test code 454 s = POC Activated Clotting Time) [facility] AllenCudxnqmGHUNKXYGBY9684-15-26 14:37:00 Test Item Value Reference Range Interpretation Comments POC Activated Clotting Time (test code 454 s = POC Activated Clotting Time) [facility] AllenQyjtkorTORCNTZEHL0801-97-82 14:37:00 Test Item Value Reference Range Interpretation Comments POC Activated Clotting Time (test code 454 s = POC Activated Clotting Time) [facility] AllenDpzeegyTPVEQACPWW6917-40-27 14:37:00 Test Item Value Reference Range Interpretation Comments POC Activated Clotting Time (test code 454 s = POC Activated Clotting Time) [facility] AllenCsdisefAFEHFUNSSR2333-18-80 14:37:00 Test Item Value Reference Range Interpretation Comments POC Activated Clotting Time (test code 454 s = POC Activated Clotting Time) [facility] AllenUfobvmpQQRVVNIGYE3115-49-59 14:37:00 Test Item Value Reference Range Interpretation Comments POC Activated Clotting Time (test code 454 s = POC Activated Clotting Time) [facility] AllenMfrdqibPKFUHMBHST7362-38-85 14:37:00 Test Item Value Reference Range Interpretation Comments POC Activated Clotting Time (test code 454 s = POC Activated Clotting Time) [facility] AllenFvkgjfuIEBWZNPGWI3112-91-59 14:13:00 Test Item Value Reference Range Interpretation Comments POC Activated Clotting Time (test code 354 s = POC Activated Clotting Time) [facility] AllenXebuvaoCQRBJQPYOK3903-45-42 14:13:00 Test Item Value Reference Range Interpretation Comments POC Activated Clotting Time (test code 354 s = POC Activated Clotting Time) [facility] AllenVrgfcowKEPQQRDFXH3518-62-68 14:13:00 Test Item Value Reference Range Interpretation Comments POC Activated Clotting Time (test code 354 s = POC Activated Clotting Time) [facility] AllenUjgyugmHRWUJOSATL5021-45-29 14:13:00 Test Item Value Reference Range Interpretation Comments POC Activated Clotting Time (test code 354 s = POC Activated Clotting Time) [facility] AllenSuxtxpbXSFAFXVWBP4929-10-06 14:13:00 Test Item Value Reference Range Interpretation Comments POC Activated Clotting Time (test code 354 s = POC Activated Clotting Time) [facility] CenterGunbeczRVCQHVSORW9559-64-72 14:13:00 Test Item Value Reference Range Interpretation Comments POC Activated Clotting Time (test code 354 s = POC Activated Clotting Time) [facility]RvjjlwjRGDCTOGVUS7887-72-59 14:13:00 Test Item Value Reference Range Interpretation Comments POC Activated Clotting Time (test code 354 s = POC Activated Clotting Time) [facility] JQVFLVK4946-01-77 10:37:00Negative (08/29/20 5:37 AM) [facility] HermannCHEM HICBR6958-14-20 10:37:43390Phzmahek HermannCHEM PANEL 2020-08-29 10:37:0028[facility] HermannCHEM EDATF4022-66-60 10:37:001.01[facility] HermannCHEM VVTZV2966-30-04 10:37:11071Jwlimmdh HermannCHEM RFBRK0191-27-24 10:37:003.8[facility] HermannCHEM PKYSB1023-59-78 10:37:83182Jnywjksm HermannCHEM DXOHF6604-54-52 10:37:0028[facility] HermannCHEM MYXJY8918-14-04 10:37:009.8 [facility] HermannCHEM QSEQE3801-12-24 10:37:0011.8[facility] HermannCHEM PANEL 2020-08-29 10:37:0059[facility] HermannCHEM NTFPL0107-22-67 10:37:002.9[facility] SadptrlHRTXOSTTZS3461-52-45 10:37:006.8[facility] ZmkllhyGOUNWQKNBP1997-82-71 10:37:004.47[facility] JpfqnjeUJVAZPQRXL4619-51-35 10:37:0010.6[facility] Coun[facility] BIHUVCTOUH6803-26-54 10:37:0034.0[facility] NaocipsZBHFWAOKRF1012-10-07 10:37:00 76.1[facility] GoolsfdFYRSHSKEIB5939-44-91 10:37:00 Test Item Value Reference Range Interpretation Comments MCH (test code = MCH) 23.8 pg 27.0-31.0 [facility] WahebeqISHKAKCKMF9357-76-81 10:37:0031.3[facility] HermannHEMATOLOGY 2020-08-29 10:37:0018.2[facility] IrqjlvsMATDTWFQGJ2669-49-51 10:37:61115Igtqnvrt HkjilmfCIEJCUYNTI6217-88-44 10:37:007.5[facility] ZogpupwVBNVFDPWEP9769-63-98 10:37:00 Test Item Value Reference Range Interpretation Comments PT (test code = PT) 12.8 s 12.0-14.7 [facility] HsmugicOPRXJXISBG0696-00-48 10:37:00 Test Item Value Reference Range Interpretation Comments INR (test code = INR) 0.97 1 0.85-1.17 [facility] ZnolewpXERHNCYHWW3070-47-78 10:37:00 Test Item Value Reference Range Interpretation Comments PTT (test code = PTT) 25.0 s 22.9-35.8 [facility] PdelwvbIOFEYDLBFD8194-82-10 10:37:0070.5[facility] HermannHEMATOLOGY 2020-08-29 10:37:0018.8[facility] TxbkldzKTNFTGHNQC4057-74-91 10:37:009.5[facility] SdgyvwlDTHNERGVSA0457-58-71 10:37:000.9[facility] SflgzugOKQDLXGFLK7547-73-80 10:37:000.3[facility] GxbihvpRXFEOSXTRC7599-53-05 10:37:004.8[facility] Coun[facility] SSXRZCDWSO7055-27-84 10:37:001.3[facility] ZjsuyoyWYISGEURDR7663-58-32 10:37:000.6 [facility] OtsaiviQDZBKGBYRC4346-40-99 10:37:000.1[facility] HermannHEMATOLOGY 2020-08-29 10:37:001+ *ABN*(08/29/20 5:37 AM)[facility] LvkaaffTFFKBPQCRB1617-22-76 10:37:00Not Detected (08/29/20 5:37 AM)[facility] HermannBLOOD BANK RESULTS 2020-08-29 10:37:00Negative (08/29/20 5:37 AM)[facility] HermannCHEM ERUOC0752-49-61 10:37:08883Ampntspz HermannCHEM GVSQV3140-26-60 10:37:0028[facility] HermannCHEM QOTVK5332-70-20 10:37:001.01[facility] HermannCHEM BETEG3865-33-25 10:37:61957 [facility] HermannCHEM ARUEG6563-43-85 10:37:003.8[facility] HermannCHEM PANEL 2020-08-29 10:37:46996Miwpwfba HermannCHEM CQDVV8475-67-67 10:37:0028[facility] HermannCHEM PJOUG5309-81-12 10:37:009.8[facility] HermannCHEM XOVIW6137-71-97 10:37:0011.8[facility] HermannCHEM NFYTY6166-40-22 10:37:0059[facility] HermannCHEM MPRAR9284-66-75 10:37:002.9[facility] AhpyfxfIIMHFHOKQW9956-61-75 10:37:006.8 [facility] AsijfiaRAMTACJHIF5226-71-44 10:37:004.47[facility] HermannHEMATOLOGY 2020-08-29 10:37:0010.6[facility] SvyahtvZFGOFVNSOH7676-09-79 10:37:0034.0[facility] YhhvfptHHMUPOVUBN8986-60-27 10:37:0076.1[facility] WpfpnrqTAXTZMVAKJ5794-23-30 10:37:00 Test Item Value Reference Range Interpretation Comments MCH (test code = MCH) 23.8 pg 27.0-31.0 [facility] TykychyQEQNTFYRXG5018-08-66 10:37:0031.3[facility] HermannHEMATOLOGY 2020-08-29 10:37:0018.2[facility] ChfdqndKBJNDJFVRO5720-05-62 10:37:96401Encfxmgk JwcboadDGTTXNFMXP4747-48-87 10:37:007.5[facility] RgkharqMLZBCHMZAO1875-07-48 10:37:00 Test Item Value Reference Range Interpretation Comments PT (test code = PT) 12.8 s 12.0-14.7 [facility] ZpvuygvBOYXXLFFJA1916-05-58 10:37:00 Test Item Value Reference Range Interpretation Comments INR (test code = INR) 0.97 1 0.85-1.17 [facility] KuyrhzyNLLQDPSMYA1982-96-67 10:37:00 Test Item Value Reference Range Interpretation Comments PTT (test code = PTT) 25.0 s 22.9-35.8 [facility] FrgmlztMZVKEKCXLC4594-44-01 10:37:0070.5[facility] HermannHEMATOLOGY 2020-08-29 10:37:0018.8[facility] XohzdtnLOKOKGHAZP2825-06-92 10:37:009.5[facility] UxhupxeVMXAKDSESO9293-48-88 10:37:000.9[facility] LazvnyqTVNYQFKBCQ5288-32-37 10:37:000.3[facility] ZztakhyYNZQCVWEPK9872-50-50 10:37:004.8[facility] JNQDSKOPIH0384-45-98 10:37:001.3[facility] HiqjzyzYTWASWJGLM0465-11-51 10:37:000.6 [facility] FsaqahjEHXWGSATKB1027-17-34 10:37:000.1[facility] HermannHEMATOLOGY 2020-08-29 10:37:001+ *ABN*(08/29/20 5:37 AM)[facility] XrfoodmIKEZRONFXP4327-59-55 10:37:00Not Detected (08/29/20 5:37 AM)[facility] HermannBLOOD BANK RESULTS 2020-08-29 10:37:00Negative (08/29/20 5:37 AM)[facility] HermannCHEM JYQIU4032-15-26 10:37:68002Yvuivvfv HermannCHEM ESWQF3875-96-32 10:37:0028[facility] HermannCHEM GTSHU0042-42-31 10:37:001.01[facility] HermannCHEM SLTOJ9127-89-80 10:37:51828 [facility] HermannCHEM UOWYH3061-50-97 10:37:003.8[facility] HermannCHEM PANEL 2020-08-29 10:37:87608Qavdqfua HermannCHEM TGLJT8442-71-51 10:37:0028[facility] HermannCHEM WJXZV4585-31-72 10:37:009.8[facility] HermannCHEM OQZJV4982-95-12 10:37:0011.8[facility] HermannCHEM IVERE1399-03-28 10:37:0059[facility] HermannCHEM NQAJJ1507-04-37 10:37:002.9[facility] IuaskibDDBPAYBPZU9689-83-26 10:37:006.8 [facility] MyeccrzRYODWMWTUD9546-71-79 10:37:004.47[facility] HermannHEMATOLOGY 2020-08-29 10:37:0010.6[facility] RgdzanhEPKTOTMWEC3759-93-68 10:37:0034.0[facility] AzytxbgHBFQDFSYHP4793-80-83 10:37:0076.1[facility] AlrkkroNDIZRPTPVC3320-70-82 10:37:00 Test Item Value Reference Range Interpretation Comments MCH (test code = MCH) 23.8 pg 27.0-31.0 [facility] SfxeizsUFXGBVREVY7505-50-44 10:37:0031.3[facility] HermannHEMATOLOGY 2020-08-29 10:37:0018.2[facility] HrziwcxXKYGQAXFPC6253-59-17 10:37:78383Yhqwahvr SdowqaoFBDDLSEYHS9698-40-74 10:37:007.5[facility] QthtkmeLNCBUOWGCC6518-35-01 10:37:00 Test Item Value Reference Range Interpretation Comments PT (test code = PT) 12.8 s 12.0-14.7 [facility] KaqjgevCSWIWYSECW1772-68-06 10:37:00 Test Item Value Reference Range Interpretation Comments INR (test code = INR) 0.97 1 0.85-1.17 [facility] LevrwbcRHJIHJEMZA4335-87-98 10:37:00 Test Item Value Reference Range Interpretation Comments PTT (test code = PTT) 25.0 s 22.9-35.8 [facility] YldronaMEBUKYCPBJ4590-69-97 10:37:0070.5[facility] HermannHEMATOLOGY 2020-08-29 10:37:0018.8[facility] HpvpcqxUMVDRPXREM0193-02-22 10:37:009.5[facility] UysnszvRVSGUTQQQM4587-01-27 10:37:000.9[facility] StumexbLZSUELTTZO7966-56-62 10:37:000.3[facility] WozdoewVLZHDYWPQZ6903-20-54 10:37:004.8[facility] JIXEVWTPIW7577-68-71 10:37:001.3[facility] YlxomonKVZLEIQVCO3328-99-57 10:37:000.6 [facility] XautueyKJOWRCYEEM4772-65-24 10:37:000.1[facility] HermannHEMATOLOGY 2020-08-29 10:37:001+ *ABN*(08/29/20 5:37 AM)[facility] BqgzyxoLFOZMQLKPQ3233-47-28 10:37:00Not Detected (08/29/20 5:37 AM)[facility] HermannBLOOD BANK RESULTS 2020-08-29 10:37:00Negative (08/29/20 5:37 AM)[facility] HermannCHEM LWLYZ1203-45-49 10:37:85599Totpgkeh HermannCHEM SRJKX8474-77-76 10:37:0028[facility] HermannCHEM WRIAN2502-17-09 10:37:001.01[facility] HermannCHEM ZVNGP4671-21-86 10:37:20071 [facility] HermannCHEM SJDQE8900-77-83 10:37:003.8[facility] HermannCHEM PANEL 2020-08-29 10:37:79877Oiouocqv HermannCHEM GTDFG8480-55-59 10:37:0028[facility] HermannCHEM WTOIJ2453-68-53 10:37:009.8[facility] HermannCHEM IIWTK4701-13-49 10:37:0011.8[facility] HermannCHEM ROTCX3970-83-77 10:37:0059[facility] HermannCHEM SDLQL0302-79-66 10:37:002.9[facility] DkcgermKYBEWFVROB1751-00-63 10:37:006.8 [facility] MkhevvnTTHETTFZJO9140-61-88 10:37:004.47[facility] HermannHEMATOLOGY 2020-08-29 10:37:0010.6[facility] SizxjtqPSHKEMICLN7714-86-28 10:37:0034.0[facility] KkfeizcFXPRGLZYAL5026-35-62 10:37:0076.1[facility] KzbvcbcOTILYKUTQJ8389-36-06 10:37:00 Test Item Value Reference Range Interpretation Comments MCH (test code = MCH) 23.8 pg 27.0-31.0 [facility] AnsnrxvSHYNHQCUCG8068-68-84 10:37:0031.3[facility] HermannHEMATOLOGY 2020-08-29 10:37:0018.2[facility] WkkinbgFQAKVIARJD2753-38-57 10:37:42581Mncriffn BoldzjfSCDCTJHSXF5636-34-86 10:37:007.5[facility] TmwxrbjEYMTOYXEJT0548-19-34 10:37:00 Test Item Value Reference Range Interpretation Comments PT (test code = PT) 12.8 s 12.0-14.7 [facility] VykexrdQWTDWHAQEK1361-25-33 10:37:00 Test Item Value Reference Range Interpretation Comments INR (test code = INR) 0.97 1 0.85-1.17 [facility] MhrwqbgRLHOQZORKR5806-09-63 10:37:00 Test Item Value Reference Range Interpretation Comments PTT (test code = PTT) 25.0 s 22.9-35.8 [facility] TcrwsnsSYLFFNQAEK2070-35-28 10:37:0070.5[facility] HermannHEMATOLOGY 2020-08-29 10:37:0018.8[facility] IvaxtuoHZQNLNUNNI2581-64-81 10:37:009.5[facility] MgocuokSXTIHVUFRW8715-39-91 10:37:000.9[facility] UezejgkEPINLEESXK0243-19-75 10:37:000.3[facility] LlzftlqWKELYPKIWW2220-00-91 10:37:004.8[facility] LYLIIRPZIX8349-03-02 10:37:001.3[facility] IazrnnoLIFHBAJNEM2154-63-45 10:37:000.6 [facility] UvdrbaeANIAQKVYHQ4773-57-14 10:37:000.1[facility] HermannHEMATOLOGY 2020-08-29 10:37:001+ *ABN*(08/29/20 5:37 AM)[facility] PmuavtjLYPZZBEMTA6130-29-96 10:37:00Not Detected (08/29/20 5:37 AM)[facility] HermannBLOOD BANK RESULTS 2020-08-29 10:37:00Negative (08/29/20 5:37 AM)[facility] HermannCHEM YGQWZ7645-94-40 10:37:95470Rscojafy HermannCHEM DYOXV1543-70-32 10:37:0028[facility] HermannCHEM ZVROZ2310-30-70 10:37:001.01[facility] HermannCHEM YURTV0771-13-81 10:37:10098 [facility] HermannCHEM LRQNZ0632-42-11 10:37:003.8[facility] HermannCHEM PANEL 2020-08-29 10:37:42969Occdmgve HermannCHEM CLZXJ7046-83-23 10:37:0028[facility] HermannCHEM ZTXNV5216-59-30 10:37:009.8[facility] HermannCHEM FSZEE6502-80-14 10:37:0011.8[facility] HermannCHEM JXMEZ2709-25-86 10:37:0059[facility] HermannCHEM EAUIE8924-42-08 10:37:002.9[facility] TbaysgkXXFTBGFZDZ8877-84-68 10:37:006.8 [facility] OgdgtknBUAQYBOZAC3872-22-00 10:37:004.47[facility] HermannHEMATOLOGY 2020-08-29 10:37:0010.6[facility] JfyybsyRGAZWRKEGI4617-44-92 10:37:0034.0[facility] QtdieyvSVCBADJSPJ8448-58-19 10:37:0076.1[facility] ImlrynmZAIDXZHURL3146-92-57 10:37:00 Test Item Value Reference Range Interpretation Comments MCH (test code = MCH) 23.8 pg 27.0-31.0 [facility] KbeejgtVQGULWIAXS8953-50-13 10:37:0031.3[facility] HermannHEMATOLOGY 2020-08-29 10:37:0018.2[facility] EoanoedFGMMRCGQOM9520-29-50 10:37:66613Xskacuqy KjxntptEAFSBNVUKR0606-35-72 10:37:007.5[facility] QzwajxlNNRVQASNVM6204-92-25 10:37:00 Test Item Value Reference Range Interpretation Comments PT (test code = PT) 12.8 s 12.0-14.7 [facility] XdrfacuNNTNHZAUUW5979-25-02 10:37:00 Test Item Value Reference Range Interpretation Comments INR (test code = INR) 0.97 1 0.85-1.17 [facility] PlejuhyPRYXKGCIFK7578-80-01 10:37:00 Test Item Value Reference Range Interpretation Comments PTT (test code = PTT) 25.0 s 22.9-35.8 [facility] WywnpvaGVZYXCUBIC7707-77-44 10:37:0070.5[facility] HermannHEMATOLOGY 2020-08-29 10:37:0018.8[facility] YktvmtcRPJKVNVAXT7310-73-85 10:37:009.5[facility] ZanmumjHERIWEMMOY5297-38-13 10:37:000.9[facility] MjyheqrNKNGEPGLZV5188-62-15 10:37:000.3[facility] DrewrljKECGHJWEBG9919-45-14 10:37:004.8[facility] Marty EJKJRHWWTJ2942-92-32 10:37:001.3[facility] WqruwlvFTLHTIUIGL4479-74-59 10:37:000.6 [facility] OftgvajTRCHWCCUZA7449-82-75 10:37:000.1[facility] HermannHEMATOLOGY 2020-08-29 10:37:001+ *ABN*(08/29/20 5:37 AM)[facility] ManbnqiGWMUMMBQHX8098-12-37 10:37:00Not Detected (08/29/20 5:37 AM)[facility] HermannBLOOD BANK RESULTS 2020-08-29 10:37:00Negative (08/29/20 5:37 AM)[facility] HermannCHEM KZEIJ0222-41-18 10:37:29327Pjdapfwk HermannCHEM KIXBP4200-26-09 10:37:0028[facility] HermannCHEM RSVFV0677-96-66 10:37:001.01[facility] HermannCHEM BBUQR4253-68-32 10:37:43472 [facility] HermannCHEM BGFGN7041-19-23 10:37:003.8[facility] HermannCHEM PANEL 2020-08-29 10:37:81324Pydafbre HermannCHEM KVGXY1264-64-93 10:37:0028[facility] HermannCHEM EMPAN9674-24-52 10:37:009.8[facility] HermannCHEM QDZUI7251-62-38 10:37:0011.8[facility] HermannCHEM AUNOM6020-79-86 10:37:0059[facility] HermannCHEM YTPCD4877-99-41 10:37:002.9[facility] HogkasoBVRDYFMQNZ2778-63-99 10:37:006.8 [facility] YlzezqzFHRQIDNEGH5124-14-78 10:37:004.47[facility] HermannHEMATOLOGY 2020-08-29 10:37:0010.6[facility] WokzuuhLDAMNNTDPR1273-10-72 10:37:0034.0[facility] ZtbykogCNIPWLRYUP8144-96-58 10:37:0076.1[facility] EjjzwfzFHFTXHADUC1993-39-13 10:37:00 Test Item Value Reference Range Interpretation Comments MCH (test code = MCH) 23.8 pg 27.0-31.0 [facility] HtzrpzwRCYNALYLKH6299-86-33 10:37:0031.3[facility] HermannHEMATOLOGY 2020-08-29 10:37:0018.2[facility] FcinstwHLDMWDIKSL8103-19-70 10:37:14871Bfszbgxy JfziygmLYHSSKVTFW8677-80-29 10:37:007.5[facility] PpceynmCIKMQLTTST4038-63-96 10:37:00 Test Item Value Reference Range Interpretation Comments PT (test code = PT) 12.8 s 12.0-14.7 [facility] HigfujvTTXGFTPFSI2804-23-55 10:37:00 Test Item Value Reference Range Interpretation Comments INR (test code = INR) 0.97 1 0.85-1.17 [facility] VrtxhzgVWTOIBHHII1888-47-50 10:37:00 Test Item Value Reference Range Interpretation Comments PTT (test code = PTT) 25.0 s 22.9-35.8 [facility] RwrqycyELLSCGUVSV4415-06-84 10:37:0070.5[facility] HermannHEMATOLOGY 2020-08-29 10:37:0018.8[facility] UuspmmgWXBMMKRHUC0749-57-30 10:37:009.5[facility] LurudnjADGLMFBTQF6694-75-39 10:37:000.9[facility] TmoacyvQCJBVZIASG8791-30-13 10:37:000.3[facility] TywkrvfFZSEOVTERV6899-60-30 10:37:004.8[facility] AEVNKGIRGW3702-42-94 10:37:001.3[facility] JyubqhvITSZMXBTMR4781-98-25 10:37:000.6 [facility] AssqyfiRPSBMNNSCQ3410-63-45 10:37:000.1[facility] HermannHEMATOLOGY 2020-08-29 10:37:001+ *ABN*(08/29/20 5:37 AM)[facility] BajmsdtTOYJVSXOQQ5583-59-05 10:37:00Not Detected (08/29/20 5:37 AM)[facility] HermannBLOOD BANK RESULTS 2020-08-29 10:37:00Negative (08/29/20 5:37 AM)[facility] HermannCHEM SIZEU3483-92-34 10:37:95630Zoafcgjy HermannCHEM USQWD4552-15-67 10:37:0028[facility] HermannCHEM XBAUW0342-94-54 10:37:001.01[facility] HermannCHEM JBSIZ4613-69-46 10:37:43379 [facility] HermannCHEM ZCEXE4580-51-56 10:37:003.8[facility] HermannCHEM PANEL 2020-08-29 10:37:44581Qyizyxhd HermannCHEM CHWPI2211-97-45 10:37:0028[facility] HermannCHEM ZEWFS7733-21-26 10:37:009.8[facility] HermannCHEM JPRCB6039-85-28 10:37:0011.8[facility] HermannCHEM CLLOG0854-69-77 10:37:0059[facility] HermannCHEM QVKZU6344-96-62 10:37:002.9[facility] OezrocwTEXIKFTIPS0850-32-57 10:37:006.8 [facility] TlixutbMHNEZBEHPL7777-44-64 10:37:004.47[facility] HermannHEMATOLOGY 2020-08-29 10:37:0010.6[facility] IenrghnNQYKEIWGZF6745-07-23 10:37:0034.0[facility] NvqxxqgDFKOUABBCC5218-24-79 10:37:0076.1[facility] VrnuimrZXRFKCPUBP2970-41-18 10:37:00 Test Item Value Reference Range Interpretation Comments MCH (test code = MCH) 23.8 pg 27.0-31.0 [facility] EdfmxlfGWVXWRZJHE0863-51-99 10:37:0031.3[facility] HermannHEMATOLOGY 2020-08-29 10:37:0018.2[facility] XsiamrsMMHWMKWFDP4672-26-83 10:37:84608Fdvpuynm MfzuhkbODFHGUCMAB3676-45-98 10:37:007.5[facility] HvgmvpxOWDJQKPKGM1557-07-94 10:37:00 Test Item Value Reference Range Interpretation Comments PT (test code = PT) 12.8 s 12.0-14.7 [facility] JseoxedYGXYMHRTAR3469-13-45 10:37:00 Test Item Value Reference Range Interpretation Comments INR (test code = INR) 0.97 1 0.85-1.17 [facility] JcslisjQAQVPCYOOZ1255-29-84 10:37:00 Test Item Value Reference Range Interpretation Comments PTT (test code = PTT) 25.0 s 22.9-35.8 [facility] LjuzrssEFDIYTWXBD2655-35-75 10:37:0070.5[facility] 2020-08-29 10:37:0018.8[facility] SwqhiirBITMLJDUWU8673-43-31 10:37:009.5[facility] PecooflQPFXAGTLMI1350-00-16 10:37:000.9[facility] SnefhpeAZVGTFBMFY8178-93-07 10:37:000.3[facility] GdpewecGPCGEPBWZD8143-26-66 10:37:004.8[facility] NOUPTMOLRI6264-77-63 10:37:001.3[facility] CjnbzrpCAKNMXYJVL4802-73-52 10:37:000.6 [facility] HzntjyvCAXZZYPRNZ2105-75-42 10:37:000.1[facility] 2020-08-29 10:37:001+ *ABN*(08/29/20 5:37 AM)[facility] CjwcicqWXTVDGTJXF1327-91-32 10:37:00Not Detected (08/29/20 5:37 AM)[facility]annCHLAMYDIA, GC, TV,PCR, IN [id number] 15:38:00 Test Item Value Reference Range Interpretation Comments FT (test code = CHTR) Not detected (qualifier Not Detected N value) FT (test code = Not detected (qualifier Not Detected N NGONO) value) FT (test code = TRVG) Not detected (qualifier Not Detected N value) URINALYSIS WITH [id number] 10:57:00 Test Item Value Reference Range Interpretation Comments Color (test code = UCOLR) Dk. Yellow Clarity (test code = UCLAR) Hazy Glucose (test code = UGLUC) NEGATIVE NEGATIVE N Bilirubin (test code = UBILI) NEGATIVE NEGATIVE N Ketones (test code = UKET) NEGATIVE NEGATIVE N Specific [place] (test code = 1.025 1.005-1.030 A USPGR) [...]
--- NOTE | 2022-02-07 21:36 | RAD REPORT ---
EXAM DESCRIPTION: CT - Head C Spine Cap Wo Con - 02/07/2022 9:03 pm CLINICAL HISTORY: fall COMPARISON: Head C Spine Cap Wo Con dated 01/15/2022 TECHNIQUE: Axial [address] head images were obtained. Axial [address] cervical spine images were obtain ed with sagittal and coronal reconstruction images reviewed. Axial 5 mm images of the chest, abdomen and pelvis were obtained. All CT scans are performed using dose optimization technique as appropriate and may include automated exposure control or mA/KV adjustment according to patient size. FINDINGS: No intracranial hemorrhage, mass or edema. Atrophy and chronic ischemic changes match the short interval January 15 study. No midline shift or abnormal fluid collection. Mastoid air cells and paranasal sinuses are clear. No skull fracture. Cervical bodies are normal in height. Slight anterior subluxation C5 on C6 matches comparison. C5-6 a nd C6-7 disc space narrowing present.Prominent facet joint degenerative change present.No fracture or acute bone finding.No disk space narrowing.No prevertebral soft tissue thickening or paraspinal mass .Central canal detail is inherently limited on CT imaging. CT chest shows no pneumothorax, pulmonary contusion or pleural fluid collection. No mediastinal hem atoma and the aorta and pulmonary arteries are unremarkable. No chest will mass or abnormal axillary finding. No displaced rib fracture or other significant bony finding. CT abdomen and pelvis show no injury to solid abdominal viscera. Gallbladder is absent. No biliary tr ee dilatation. Bilateral renal cysts are present. No bowel injury or significant finding. No free air , free fluid or inflammatory stranding in the peritoneal or retroperitoneal spaces. Uterus and ovarie s show no suspicious findings. No mass or bulky lymphadenopathy. No urinary bladder abnormality. Stranding is present in the right groin. This has the appearance of hemorrhage in the fatty tissues f rom recent vascular access procedure No significant bony finding. IMPRESSION: Atrophy and chronic ischemic change matching prior imaging. No acute CT Head finding or significant interval change. Cervical spine degenerative change similar to comparison. No acute findings seen. No acute traumatic CT chest finding. No acute traumatic CT abdomen or pelvic finding. Contusion and edema changes in the right groin regio n suggest recent vascular access procedure.
[2022-02-07] MEDS ORDERED: HYDROMORPHONE HCL 1 MG/ML INJ ONE (21:38)
[2022-02-07] MEDS ORDERED: AMOX TR/K CLAV 400MG CHEW TAB PO ONE (21:39)
[2022-02-07] MEDS ORDERED: ONDANSETRON 4 MG/2 ML VIAL ONE (21:39)
[2022-02-07 21:58] LABS: Urine Blood Negative (Negative); Urine Glucose Negative (Negative); Urine Protein Negative (Negative); Urine Specific Gravity <=1.005 (1.005-1.030)
[2022-02-07] MEDS ORDERED: NA CHLORIDE 0.9% 1,000 ML ONE (22:41)
[2022-02-07 22:45] LABS: Absolute Lymphocytes (CBC) 1.3 K/uL (0.7-4.9); Hematocrit 34.7 % (36.0-45.0); Lymphocytes % 21.8 % (15.3-44.8); MCV 88.4 fL (80-100); MPV 7.6 fL (7.6-11.3); RBC Red Blood Cell Count 3.93 M/uL (3.86-4.86)
[2022-02-07 23:26] LABS: Albumin 3.3 g/dL (3.4-5.0); Bilirubin Direct 0.2 mg/dL (0-0.2); Bilirubin Total 0.6 mg/dL (0.2-1.0); Protein, Total 7.1 g/dL (6.4-8.2); Troponin High Sensitivity 12.1 pg/mL (<58.9)
--- NOTE | 2022-02-07 23:29 | ER ---
Nurse's Notes [facility] Name: Fawn Fleming Age: 67 yrs Sex: Female : 1955 Arrival Date: 02/07/2022 Time: 20:21 Bed 20 Private MD: Diagnosis: UTI/ Urinary tract infection, site not specified;Fall on same level, unspecified;Diarrhea, unspecified;Postprocedural hemorrhage of skin and subcutaneous tissue following other procedure-stable s/p cath;Hypokalemia Presentation: 02/07 20:27 Chief complaint: Slipped in the bathroom and hit her head, c/o headache and diarrhea x hb 3 days. Also c/o lower abdominal pain r/t unknown "surgery on kidneys." Extensive dark purple bruising noted to suprapubic area, intact dressing on RLQ. Coronavirus screen: At this time, the client does not indicate any symptoms associated with coronavirus-19. Ebola Screen: No symptoms or risks identified at this time. Initial Sepsis Screen: Does the patient meet any 2 criteria? No. Patient's initial sepsis screen is negative. Does the patient have a suspected source of infection? No. Patient's initial sepsis screen is negative. Risk Assessment: Do you want to hurt yourself or someone else? Patient reports no desire to harm self or others. Onset of symptoms was February 07, 2022. 20:27 Method Of Arrival: EMS: [facility] hb 20:27 Acuity: BLAYNE 3 hb Historical: - Allergies: 20:30 Bactrim DS; hb 20:30 butorphanol tartrate; hb 20:30 Fentanyl; hb 20:30 Reglan; hb 20:30 Stadol; hb 20:30 sulfamethoxazole (bulk); hb 20:30 TRIMETHOPRIM; hb - PMHx: 20:30 Anxiety; Atrial Fib; Bipolar disorder; Chronic pain; COPD; esophageal varices; hb Hepatitis; HIV; Hypertension; Migraines; Panic Attacks; - PSHx: 20:30 Appendectomy; Bilateral shoulder repair; Cholecystectomy; hernia repair; R wrist SX; hb - Immunization history:: Adult Immunizations up to date. - Social history:: Smoking status: Patient denies any tobacco usage or history of. Screenin:00 Abuse screen: Denies threats or abuse. Nutritional screening: No deficits noted. ja4 Tuberculosis screening: No symptoms or risk factors identified. Fall Risk Gait- Weak (10 pts.). Mental Status- Overestimates/Forgets Limitations (15 pts.). Total Hauser Fall Scale indicates. Assessment: 22:00 General: Appears uncomfortable, unkempt, Behavior is calm, cooperative, appropriate for [facility] age. Pain: Complains of pain in head. Neuro: No deficits noted. GI: No deficits noted. : Reports burning with urination. Vital Signs: 20:27 BP 170 / 93; Pulse 59; Resp 16; Temp 97.2; Pulse Ox 100% on R/A; Weight 77.11 kg; hb Height 5 ft. 4 in. (162.56 cm); Pain 03/01; 02/08 00:04 BP 183 / 97; Pulse 66; Resp 16; Pulse Ox 98% on R/A; ja4 02/07 20:27 Body Mass Index 29.18 (77.11 kg, 162.56 cm) hb ED Course: 02/07 20:21 Patient arrived in ED. la1 20:30 Triage completed. hb 20:30 Arm band placed on right wrist. hb 20:35 Justus Kolb MD is Attending Physician. thomas 21:02 Jesica Ramos, ASHLEY is Primary Nurse. jl7 21:05 CT Traumagram (Head C Spine CAP wo con) In Process Unspecified. EDMS 21:57 Patient has correct armband on for positive identification. Bed in low position. Call mh5 light in reach. Side rails up X 1. Warm blanket given. library monitor on. Pulse ox on. NIBP on. 21:57 Urine collected: clean catch specimen, cloudy. mh5 21:58 EKG done, by ED staff, reviewed by Justus Kolb MD. 5 23:27 Mike Lund MD is Referral Physician. [facility] 02/08 00:06 IV discontinued, intact, bleeding controlled, Pressure dressing applied. ja4 Administered Medications: 02/07 22:43 Discontinued: NS 0.9% 500 ml IV at bolus once ja4 22:29 Drug: Augmentin (Amoxicillin-Clavulanate) 875 mg Route: PO; ja4 22:40 Drug: NS 0.9% 500 ml Route: IV; Rate: bolus; Site: right upper arm; ja4 22:43 Drug: Dilaudid (HYDROmorphone) 1 mg Route: IVP; Site: right upper arm; ja4 22:43 Drug: Zofran (Ondansetron) 4 mg Route: IVP; Site: right upper arm; ja4 23:55 Drug: Potassium Effervescent Tablet 50 mEq Route: PO; ja4 Outcome: 23:27 Discharge ordered by MD. guzman 02/08 00:06 Discharged to home ambulatory. ja4 Condition: stable Discharge instructions given to patient, Instructed on discharge instructions, follow up and referral plans. medication usage, Demonstrated understanding of instructions, follow-up care, medications, Prescriptions given X 2. 00:10 Patient left the ED. ja4 Signatures: Dispatcher [employer] EDMS Justus Kolb MD MD cha Attema, Lee, SEAFOOD MANAGER-C SEAFOOD MANAGER-Cla1 Tata Rivera, RN Laura Virk Jesica Ibrahim RN RN jl7 John Sanabria RN RN ja4
--- NOTE | 2022-02-07 23:29 | EDPHYS ---
Physician Documentation [facility] Name: Fawn Fleming Age: 67 yrs Sex: Female : 1955 Arrival Date: 02/07/2022 Time: 20:21 Bed 20 Private MD: ED Physician Justus Kolb HPI: 02/07 21:53 This 67 yrs old Female presents to ER via EMS with complaints of Fall Injury. thomas 21:53 Details of fall: The patient fell from an upright position, while walking. Onset: The thomas symptoms/episode began/occurred just prior to arrival. Associated injuries: The patient sustained injury to the head, neck injury. Severity of symptoms: At their worst the symptoms were mild, in the emergency department the symptoms are unchanged. The patient has not experienced similar symptoms in the past. Historical: - Allergies: 20:30 Bactrim DS; hb 20:30 butorphanol tartrate; hb 20:30 Fentanyl; hb 20:30 Reglan; hb 20:30 Stadol; hb 20:30 sulfamethoxazole (bulk); hb 20:30 TRIMETHOPRIM; hb - PMHx: 20:30 Anxiety; Atrial Fib; Bipolar disorder; Chronic pain; COPD; esophageal varices; hb Hepatitis; HIV; Hypertension; Migraines; Panic Attacks; - PSHx: 20:30 Appendectomy; Bilateral shoulder repair; Cholecystectomy; hernia repair; R wrist SX; hb - Immunization history:: Adult Immunizations up to date. - Social history:: Smoking status: Patient denies any tobacco usage or history of. ROS: 21:58 Constitutional: Negative for fever, chills, and weight loss, Eyes: Negative for injury, thomas pain, redness, and discharge, ENT: Negative for injury, pain, and discharge, Neck: Negative for injury, pain, and swelling, Cardiovascular: Negative for chest pain, palpitations, and edema, Respiratory: Negative for shortness of breath, cough, wheezing, and pleuritic chest pain, Abdomen/GI: Negative for abdominal pain, nausea, vomiting, diarrhea, and constipation, Back: Negative for injury and pain, : Negative for injury, bleeding, discharge, and swelling, MS/Extremity: Negative for injury and deformity, Skin: Negative for injury, rash, and discoloration, Psych: Negative for depression, anxiety, suicide ideation, homicidal ideation, and hallucinations, Allergy/Immunology: Negative for hives, rash, and allergies, Endocrine: Negative for neck swelling, polydipsia, polyuria, polyphagia, and marked weight changes. 21:58 MS/extremity: Positive for contusion, pain, of the right femoral area and suprapubic area. 21:58 Neuro: Positive for headache. Exam: 21:58 Constitutional: This is a well developed, well nourished patient who is awake, alert, thomas and in no acute distress. Head/Face: Normocephalic, atraumatic. Eyes: Pupils equal round and reactive to light, extra-ocular motions intact. Lids and lashes normal. Conjunctiva and sclera are non-icteric and not injected. Cornea within normal limits. Periorbital areas with no swelling, redness, or edema. ENT: Nares patent. No nasal discharge, no septal abnormalities noted. Tympanic membranes are normal and external auditory canals are clear. Oropharynx with no redness, swelling, or masses, exudates, or evidence of obstruction, uvula midline. Mucous membranes moist. Neck: Trachea midline, no thyromegaly or masses palpated, and no cervical lymphadenopathy. Supple, full range of motion without nuchal rigidity, or vertebral point tenderness. No Meningismus. Chest/axilla: Normal chest wall appearance and motion. Nontender with no deformity. No lesions are appreciated. Cardiovascular: Regular rate and rhythm with a normal S1 and S2. No gallops, murmurs, or rubs. Normal PMI, no JVD. No pulse deficits. Respiratory: Lungs have equal breath sounds bilaterally, clear to auscultation and percussion. No rales, rhonchi or wheezes noted. No increased work of breathing, no retractions or nasal flaring. Abdomen/GI: Soft, non-tender, with normal bowel sounds. No distension or tympany. No guarding or rebound. No evidence of tenderness throughout. Back: No spinal tenderness. No costovertebral tenderness. Full range of motion. Skin: Warm, dry with normal turgor. Normal color with no rashes, no lesions, and no evidence of cellulitis. Neuro: Awake and alert, GCS 15, oriented to person, place, time, and situation. Cranial nerves II-XII grossly intact. Motor strength 5/5 in all extremities. Sensory grossly intact. Cerebellar exam normal. Normal gait. Psych: Awake, alert, with orientation to person, place and time. Behavior, mood, and affect are within normal limits. 21:58 Musculoskeletal/extremity: Extremities: noted in the right femoral area and suprapubic area: contusion, pain. 22:05 ECG was reviewed by the Attending Physician. [facility] Vital Signs: 20:27 BP 170 / 93; Pulse 59; Resp 16; Temp 97.2; Pulse Ox 100% on R/A; Weight 77.11 kg; hb Height 5 ft. 4 in. (162.56 cm); Pain 03/01; 02/08 00:04 BP 183 / 97; Pulse 66; Resp 16; Pulse Ox 98% on R/A; ja4 02/07 20:27 Body Mass Index 29.18 (77.11 kg, 162.56 cm) hb MDM: 02/07 20:35 Patient medically screened. [facility] 22:00 Differential diagnosis: abrasion, closed head injury, contusion, multiple trauma, thomas sprain, strain. Data reviewed: vital signs, nurses notes, lab test result(s), EKG, radiologic studies, CT scan. Data interpreted: ekg monitor: rate is 59 beats/min, rhythm is regular, Pulse oximetry: on room air is 100 %. Test interpretation: by ED physician or midlevel provider: ECG, plain radiologic studies. Counseling: I had a detailed discussion with the patient and/or guardian regarding: the historical points, exam findings, and any diagnostic results supporting the discharge/admit diagnosis, lab results, radiology results, the need for outpatient follow up, for definitive care, a nurse ortho, a family practitioner. 02/07 20:40 Order name: Basic Metabolic Panel; Complete Time: 23:37 [facility] 02/07 20:40 Order name: CBC with Diff [facility] 02/07 20:40 Order name: Troponin High Sensitivity; Complete Time: 23:37 [facility] 02/07 20:40 Order name: LFT's; Complete Time: 23:37 [facility] 02/07 20:40 Order name: Lipase; Complete Time: 23:37 [facility] 02/07 20:40 Order name: CT Traumagram (Head C Spine CAP wo con); Complete Time: 21:45 [facility] 02/07 21:58 Order name: Urine Dipstick-Ancillary; Complete Time: 22:03 [facility]IN 02/07 22:49 Order name: CBC Smear Scan [facility] 02/07 20:40 Order name: Labs collected and sent [facility] 02/07 20:40 Order name: Urine Dipstick-Ancillary (obtain specimen); Complete Time: 21:50 [facility] 02/07 20:40 Order name: EKG; Complete Time: 20:41 [facility] 02/07 20:40 Order name: EKG - Nurse/Tech; Complete Time: 21:50 [facility] 02/07 23:27 Order name: PO challenge: JUICE; Complete Time: 00:03 [facility] EC:05 Rate is 63 beats/min. Rhythm is regular. QRS [place] is Normal. LA interval is normal. QRS thomas interval is normal. No Q waves. T waves are Normal. No ST changes noted. Clinical impression: NSR w/ Non-specific ST/T Changes, LVH, and No evidence of ischemia. Interpreted by me. Reviewed by me. Administered Medications: 22:43 Discontinued: NS 0.9% 500 ml IV at bolus once ja4 22:29 Drug: Augmentin (Amoxicillin-Clavulanate) 875 mg Route: PO; ja4 22:40 Drug: NS 0.9% 500 ml Route: IV; Rate: bolus; Site: right upper arm; ja4 22:43 Drug: Dilaudid (HYDROmorphone) 1 mg Route: IVP; Site: right upper arm; ja4 22:43 Drug: Zofran (Ondansetron) 4 mg Route: IVP; Site: right upper arm; ja4 23:55 Drug: Potassium Effervescent Tablet 50 mEq Route: PO; ja4 Disposition Summary: 02/07/22 23:27 Discharge Ordered Location: Home thomas Problem: new thomas Symptoms: have improved thomas Condition: Stable thomas Diagnosis - UTI/ Urinary tract infection, site not specified thomas - Fall on same level, unspecified thomas - Diarrhea, unspecified thomas - Postprocedural hemorrhage of skin and subcutaneous tissue following other procedure thomas - stable s/p cath - Hypokalemia thomas Followup: thomas - With: Private Physician - When: 2 - 3 days - Reason: Recheck today's complaints, Continuance of care, Re-evaluation by your physician Followup: thomas - With: - When: 2 - 3 days - Reason: Recheck today's complaints, Continuance of care, Re-evaluation by your physician Discharge Instructions: - Discharge Summary Sheet thomas - Diarrhea, Adult thomas - Dysuria thomas - Hematoma thomas - Hematoma, [id number] thomas - Potassium Content of Foods thomas - Fall Prevention in the Home, Adult thomas - Urinary Tract Infection, Adult thomas - Diarrhea, Adult, [id number] thomas - Fall Prevention in the Home, Adult, [id number] thomas - Hypokalemia [facility] Forms: - Medication Reconciliation Form [facility] - Thank You Letter thomas - Antibiotic Education [facility] - Prescription Opioid Use [facility] Prescriptions: - Augmentin 500-125 mg Oral Tablet - take 1 tablet by ORAL route every 12 hours for 5 days; 10 tablet; Refills: 0, [facility] Product Selection Permitted - Potassium Chloride 20 meq Oral Packet - take 1 packet by ORAL route every 12 hours 1 packet in 6 (six) ounces of water thomas or juice; Take after meal; 20 packet; Refills: 0, Product Selection Permitted Signatures: Dispatcher [employer] EDJustus Perrin MD MD cha Attema, Lee, KEYBOARDING CLERK-C KEYBOARDING CLERK-Cla1 Tata Rivera RN RN John Sanabria RN RN ja4
[2022-02-07 23:30] LABS: Potassium 2.9 mmol/L (3.5-5.1)
[2022-02-07] MEDS ORDERED: POTASSIUM 25 MEQ EFFERV TAB ONE (23:57)
[2022-02-08] MEDS ORDERED: POTASSIUM 25 MEQ EFFERV TAB ONE (00:14)
[2022-02-08 00:16] LABS: Blood Morphology Comment NOTED (NOT SEEN); Platelet Estimate ADEQ; Teardrop Cell 1+; White Blood Cell Scan OK (OK)
[2022-02-09 09:11] VITALS: TEMP 97.2
[2022-02-09 09:13] VITALS: BP 183/97; O2SAT 98
--- NOTE | 2022-02-10 06:39 | EKG ---
Test Date: 2022-02-07 Test Time: 21:46:01 Child And Adolescent Therapist: BENITO MEASUREMENT RESULTS: Intervals: Rate: 63 OK: 198 QRSD: 94 QT: 448 QTc: 458 [employer]: P: 62 OK: 198 QRS: 5 T: 3 INTERPRETIVE STATEMENTS: Normal sinus rhythm Left ventricular hypertrophy with repolarization abnormality Abnormal ECG Compared to ECG 02/01/2022 13:18:10 Sinus bradycardia no longer present Atrial premature complex(es) no longer present Electronically Signed On 02-10-22 06:32:24 CDT by Per Crane
== END 2022-02-08 00:10 | disposition home or self-care (01) ==
LOC: ER 20:18
DX: L76.22 Postprocedural hemorrhage of skin and subcutaneous tissue following other procedure (principal); N39.0 Urinary tract infection, site not specified; E87.6 Hypokalemia; R19.7 Diarrhea, unspecified; W18.30XA Fall on same level, unspecified, initial encounter; Z21 Asymptomatic human immunodeficiency virus [HIV] infection status
CPT/HCPCS: 93005; 85025; 80048; 36415; 80076; 81003; 84484; 83690; 70450; 71250; 72125; 96375; 96374; 99284; J1170; J7030; J2405

== ENCOUNTER 2022-03-08 20:25 | Emergency (ER) | payer OTHER ==
--- OUTSIDE RECORDS SUMMARY | 2022-03-08 20:39 | XMS REPORT | Continuity of Care Document ---
:[address] [facility] t Address [address] [place] [address] Care Team Providers Name Role Phone Urmila Rahman Primary Care Physician ELAN LIRA Attending Clinician Unavailable HEMATDENZEL, BEVERLY Attending Clinician Unavailable SANTIAGO CARDENAS Attending Clinician Unavailable [facility] Attending Clinician Unavailable Santiago Sanchez Attending Clinician Stevo RAMIREZ, Isaias Arredondo Attending Clinician Unavailable TOMY MARIE Attending Clinician Unavailable Reilly Means MD Attending Clinician Ofe Shields MD Attending Clinician Tomy Marie MD Attending Clinician Doctor Unassigned, [place] Attending Clinician Unavailable Bill COLES Attending Clinician Unavailable Bill Rose Attending Clinician CHARITY MCALLISTER Attending Clinician Unavailable Charity Mcallister MD Attending Clinician GADIEL KOEHLER Attending Clinician Unavailable Mike Lund Attending Clinician Unavailable NIKOLAI REEVES Attending Clinician Unavailable Eliseo Arce MD Attending Clinician Carol Ann IZQUIERDO, Sarai Lieberman Attending Clinician [phone] Ashly Pelletier MA Attending Clinician Unavailable Dagoberto Bass MD Attending Clinician [place] Evangelista Attending Clinician Lab, [facility] Attending Clinician Unavailable Devin SALGUERO, Robbi R Attending Clinician Monica Rodas MA Attending Clinician Unavailable Agustina Ortiz MA Attending Clinician Unavailable Rody Maguire RN Attending Clinician Unavailable Kirit Flood MD, V. Attending Clinician HEMATPOLIZ, BEVERLY Attending Clinician Unavailable Gloria Hinojosa Attending Clinician Michael Hagen RN Attending Clinician Unavailable Vani, [facility] Attending Clinician UnavailDO PORSHA Newell Attending Clinician Unavailable Gadiel Koehler MD Attending Clinician Eveline Hansen MD Attending Clinician Eladio [place] RN Attending Clinician Unavailable Leyda Willis Attending Clinician [phone] Stefanie Montalvo RN Attending Clinician Unavailable TOMY MARIE Admitting Clinician Unavailable Tomy Marie MD Admitting Clinician Bill COLES Admitting Clinician Unavailable Lele Rahman Admitting Clinician Unavailable Mike Lund Admitting Clinician Unavailable ELISEO ARCE Admitting Clinician Unavailable DO PORSHA STREETER Admitting Clinician Unavailable Payers Payer Name Policy Type Policy Number Effective Date Expiration Date S gabino [facility] COMMUNITY PLAN [id number] 2012 ST[employer] PLUS OON 00:00:00 [facility] [id number] 2019 DUAL COMPLETE HMO 00:00:00 FORMERLY [facility] [id number] 2019 PLUS 00:00:00 [employer] [facility] [id number] 2019 [facility] 00:00:00 [employer] MEDICARE ADV [id number] 2019 2019 00:00:00 00:00:00 Problems Condition Condition Condition Status Onset Resolution Last Treating Co mments Source Name Details Category Date Date Treatment Clinician Date Dyspnea, Dyspnea, Disease Active Unive rs unspecifie unspecifie 02-11 it y of d type d type 00:00: [address] Gastropare Gastropare Disease Active Overview : Methodi sis sis 4-[address] 00:00: [facility] note l might be different from the original. Added automatic ally from request for surgery [id number] Dysphagia Dysphagia Disease Active Overview: Methodi 4-[address] 00:00: [facility] 00 note l might be different from the original. Added automatic ally from request for surgery [id number] CCL / EPS CCL / EPS Diagnosis Active 2020-10-15 Memoria PVI PVI 08-19 17:07:00 l ABLATION ABLATION 00:00: Patel n W/ CARTO / W/ CARTO / 00 GA / T GA / T Active 08/19/2020 [facility] Food Food Disease Active 2019-05 Methodi intoleranc [...] (BMI 2-19 ity of 30-39.9) 30-39.9) 00:00: [place] [facility] Anemia Anemia Disease Active 2014-05 Univers 0-03 ity of 00:00: [place] [facility] Hypovolemi Hypovolemi Disease Active 2014-05 U nivers a due to a due to 0-02 ity of hemorrhage hemorrhage 00:00: [place] [facility] Chest pain Chest pain Disease Active 2014-05 U nivers 0-02 ity of 00:00: [place] [facility] 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:00: [place] shoulder shoulder 00 Medica l arthroplas arthroplas Br anch ty ty Posttrauma Posttrauma Disease Active U nivers tic stress tic stress 08 it y of disorder disorder 00:00: [place] [facility] 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 00:00: [place] virus virus 00 Medical (HIV) (HIV) Branch disease disease Bipolar 2 Bipolar 2 Disease Active Uni vers disorder disorder 11-18 ity of 00:00: [place] [facility] Chronic Chronic Disease Active Univers hepatitis hepatitis 11-18 ity of C C 00:00: [place] [facility] Hypertensi Hypertensi Disease Active U nivers on on 11-18 ity of 00:00: [place] [facility] Allergies, Adverse Reactions, Alerts Allergy Allergy Status Severity Reaction(s) Onset Inactive Treating Comm ents Source Name Type Date Date Clinician sulfamet DA Active SV N/V [facility] hoxazole 1-25 Clear 00:00: Garcia 00 [facility] trimetho DA Active SV [facility] prim 1-25 Clear 00:00: Garcia [facility] codeine DA Active SV N/V [facility] 1-25 Clear 00:00: Garcia 00 [facility] Metoclop Propensi Active [place] ramide ty to 12-12 Health adverse 00:00: reaction 00 s BUTORPHA DRUG Active Unknown-Cmnt Un matt NOL INGREDI 7 ity of 00:00: [place] [facility] Butorpha [...] 00 Medical Branch Trimetho Propensi Active Hives 2017-0 Univer s prim ty to 2-08 ity [...] Uni vers ramide ty to See comments -06 ity of adverse 00:00: [place] reaction 00 [...] 00 Medical Branch Butorpha Propensi Active Hallucinatio 0 Univers nol ty to ns 2-14 ity of Tartrate adverse 00:00: [place] reaction 00 Medical s to Branch drug Bactrim Bactrim Active Get [place] Family History Family Member Diagnosis Comments Start Date Stop Date Source Natural father [facility] father [facility] Natural mother [facility] Social History Social Habit Start Date Stop Date Quantity Comments Source History SDOH [facility] Alcohol Frequency Hospita l History SDOH [facility] Alcohol Std Drinks Hospit al History SDOH [facility] Alcohol [facility] Tobacco use and 2022-02-11 2022-02-11 Former smokeless Uni versity of exposure 00:00:00 00:00:00 tobacco user [facility] Tobacco Comment 2022-02-11 2022-02-11 Smokes approx 1-2 Un iversity of 00:00:00 00:00:00 cigarettes per [place] Medi porfirio day when she Branch smokes Exposure to 2022-01-31 2022-02-10 Not sure [facility] SARS-CoV-2 (event) 00:00:00 22:53:00 [facility] Alcohol intake 2020-12-08 2020-12-08 Current drinker [facility] 00:00:00 00:00:00 of alcohol Hospital (finding) Cigarettes smoked 2020-09-05 2020-09-[address] current (pack per 00:00:00 00:00:00 Hospita l day) - Reported Cigarette 2020-09-05 2020-09-05 [facility] pack-years 00:00:00 00:00:00 Hospital Alcohol Comment 2016-09-23 2016-09-23 rare [facility]ikh 00:00:00 00:00:00 Hospital History of tobacco 2011-09-29 User of smokeless University of use 00:00:00 tobacco [facility] Sex Ass[birth year] [facility] 00:00:00 00:00:00 Smoking Status Start Date Stop Date Source Ex-smoker 2022-02-11 00:00:00 2022-02-11 00:00:00 Universi ty of [facility] Medications Ordered Filled Start Stop Current Ordering Indication Dosage Frequency Signature Comments Components Source Medication Medication Date Date Medication? Clinician (SIG) Name Name zoster 2021-05- Yes [id number] .5mL 0.5 mL by Univers vaccine, 0-14 10-15 9104 Intramuscu ity of recombinant 00:00: 04:59 lar route [place] (SHINGRIX, 00 :00 once now Medic al PF,) for 1 Branch injection dose. And repeat in 2-6 months hydralAZINE Yes 25mg Take 25 mg Univers (APRESOLINE 9-27 by mouth ity of ) 25 mg 19:28: daily. [place] tablet 04 Medical Branch lisinopril Yes 40mg Take 40 mg U nivers (PRINIVIL,Z 9-27 by mouth 2 it y of ESTRIL) 40 19:28: (two) [place] mg tablet 04 times Medical daily. Branch metoprolol Yes 100mg Take 100 Un matt tartrate 9-27 mg by ity of (LOPRESSOR) 19:28: mouth 2 [place] 100 mg 04 (two) Medical tablet times Branch daily. amLODIPine 2021-0 Yes 10mg Take 10 mg U nivers (NORVASC) 9-27 by mouth ity of 10 mg 19:28: daily. [place] tablet 04 Medical Branch clonazePAM 2021-0 Yes 1mg Take 1 mg Un matt (KLONOPIN) 9-27 by mouth ity o f 1 mg tablet 19:28: at [place] [address] bedtime. Medical Branch traZODone 2021-0 Yes 50mg Take 50 mg Un matt 100 mg 9-27 by mouth ity of tablet 19:28: at [place] [address] bedtime. Medical Branch hydralAZINE 2021-0 Yes 25mg Take 25 mg Univers (APRESOLINE 9-27 by mouth ity of ) 25 mg 19:28: daily. [place] tablet 04 Medical Branch lisinopril 2021-0 Yes 40mg Take 40 mg U nivers (PRINIVIL,Z 9-27 by mouth 2 it y of ESTRIL) 40 19:28: (two) [place] mg tablet 04 times Medical daily. Branch metoprolol 2021-0 Yes 100mg Take 100 Un matt tartrate 9-27 mg by ity of (LOPRESSOR) 19:28: mouth 2 [place] 100 mg 04 (two) Medical tablet times [place] daily. amLODIPine 2021-0 Yes 10mg Take 10 mg U nivers (NORVASC) 9-27 by mouth ity of 10 mg 19:28: daily. [place] tablet 04 Medical Branch clonazePAM 2021-0 Yes 1mg Take 1 mg Un matt (KLONOPIN) 9-27 by mouth ity o f 1 mg tablet 19:28: at [place] [address] bedtime. Medical Branch traZODone 2021-0 Yes 50mg Take 50 mg Un matt 100 mg 9-27 by mouth ity of tablet 19:28: at [place] [address] bedtime. Medical Branch hydralAZINE 2021-0 Yes 25mg Take 25 mg Univers (APRESOLINE 9-27 by mouth ity of ) 25 mg 19:28: daily. [place] tablet 04 Medical Branch lisinopril 2021-0 Yes 40mg Take 40 mg U nivers (PRINIVIL,Z 9-27 by mouth 2 it y of ESTRIL) 40 19:28: (two) [place] mg tablet 04 times Medical daily. Branch metoprolol Yes 100mg Take 100 Un matt tartrate 9-27 mg by ity of (LOPRESSOR) 19:28: mouth 2 [place] 100 mg 04 (two) Medical tablet times [place] daily. amLODIPine Yes 10mg Take 10 mg U nivers (NORVASC) 9-27 by mouth ity of 10 mg 19:28: daily. [place] tablet 04 Medical Branch clonazePAM Yes 1mg Take 1 mg Un matt (KLONOPIN) 02-16 by mouth ity o f 1 mg tablet 19:28: at [place] [address] bedtime. Medical Branch traZODone Yes 50mg Take 50 mg Un matt 100 mg - by mouth ity of tablet 19:28: at [place] [address] bedtime. Medical Branch cefpodoxime 0 2021- Yes [id number] 200mg Take 1 Univers 200 mg 02-16 tablet by ity of tablet 00:00: 04:59 mouth in [place] 00 :00 the Medical morning Branch and 1 tablet in the evening. Do all this for 3 days. cefpodoxime 2021- Yes [id number] 200mg Take 1 Univers 200 mg 02-16 tablet by ity of tablet 00:00: 04:59 mouth in [place] 00 :00 the Medical morning Branch and 1 tablet in the evening. Do all this for 3 days. haloperidol 2021- No 2mg 2 mg, Slow Univers lactate 02-15 IV Push, ity of (HALDOL) 09:00: 09:12 ONCE, 1 [place] injection 2 00 :00 dose, On Medi porfirio mg Mon Branch 02/15/22 at 0400, Routine hydroCHLORO Yes 25mg 25 mg, Univ ers thiazide -25 Oral, ity of (ESIDRIX) 14:00: DAILY, [place] capsule 25 00 First dose Med ical mg on Sun Branch 02/14/22 at 0900, Until Discontinu ed, Routine butalbital- Yes 1{tbl} 1 tablet, Univers acetaminoph 24 Oral, ity of en-caff 18:46: Q6HPRN, [place] (ESGIC) 06 Starting Medical 50-325-40 on Sat Branch mg tablet 1 02/13/22 at tablet 1346, Until Discontinu ed, Routine, headaches dicyclomine Yes 10mg 10 mg, Univ ers (BENTYL) 02-13 Oral, QID, ity o f capsule 10 17:00: First dose [place] mg 00 on Tue Medical 02/13/22 at Branch 1200, Until Discontinu ed, Routine tiZANidine Yes 4mg 4 mg, Univer s (ZANAFLEX) 02-12 Oral, Q8H, ity of tablet 4 mg 19:00: First dose [place] 00 on Tue [facility] 02/12/22 at Branch 1400, Until Discontinu ed, Routine HYDROmorpho Yes 4mg 4 mg, Unive rs ne 02-12 Oral, ity of (DILAUDID) 17:37: Q6HPRN, [place] tablet 4 mg 07 Starting Medi porfirio on Tue Branch 02/12/22 at 1237, Until Discontinu ed, Routine, Pain (scale 4-6) morpHINE (2 2021- No 2mg 2 mg, Slow Univers mg/mL) 02-12 IV Push, ity of injection 2 17:36: 20:36 Q6HPRN, [place] mg 46 :24 Starting Medical on Tue Branch 02/12/22 at 1236, Until 02/14/22 at 1536, Routine, Pain (scale 7-10) cefTRIAXone 2021- No 2000mg 2,000 mg, Univers (ROCEPHIN) 02-12 IV ity of 2,000 mg in 17:00: 18:24 Piggyback, [place] NaCl 0.9% 00 :00 Q24H ABX, Medic al (NS) 100 mL 5 doses, Bran ch MINI-BAG First dose on Tue02/12/22 at 1200, Last dose on Tue02/16/22 at 1200, Administer over 30 Minutes, 100 mL
Reas on for Anti-Infec tive: Documented Infection< br>Documen arpit Infection Site: Urine
D uration of Therapy: Other (see Comments) hydrALAZINE Yes 75mg 75 mg, Univ ers (APRESOLINE 02-12 Oral, BID, it y of ) tablet 75 14:15: First dose [place] mg 00 (after Medical last Branch modificati on) on Tue02/12/22 at 0915, Until Discontinu ed, Routine pantoprazol Yes 40mg 40 mg, Univ ers e 02-12 Oral, ity of (PROTONIX) 14:00: DAILY, [place] EC tablet 00 First dose Medi porfirio 40 mg on Tue Branch 02/12/22 at 0900, Until Discontinu ed, Routine SERTraline Yes 200mg 200 mg, Uni vers (ZOLOFT) 02-12 Oral, ity of tablet 200 14:00: DAILY, [place] mg 00 First dose Medical on Tue Branch 02/12/22 at 0900, Until Discontinu ed, Routine buPROPion Yes 150mg 150 mg, Univ ers XL 02-12 Oral, ity of (WELLBUTRIN 14:00: DAILY, [place] XL) tablet 00 First dose Med ical 150 mg on Tue Branch 02/12/22 at 0900, Until Discontinu ed, Routine enoxaparin Yes 40mg 40 mg, Unive rs (LOVENOX) 02-11 Subcutaneo ity of injection 22:00: us, DAILY [place] 40 mg 00 AT 1700, Medical First dose Branch on Tue02/11/22 at 1700, Until Discontinu ed, Routine aspirin No 325mg 325 mg, Unive rs E.C. 02-11 Oral, ity of (ECOTRIN) 21:33: 21:44 ONCE, 1 [place] tablet 325 00 :00 dose, On Medic al mg Tue Branch 02/11/22 at 1645, Routine nitroglycer Yes .4mg 0.4 mg, Uni vers in 02-11 Sublingual ity of (NITROSTAT) 21:31: , Q5MIN [place] sublingual 20 PRN, Medical tablet 0.4 Starting Branc h mg on Tue02/11/22 at 1631, Until Discontinu ed, Routine, Chest pain cloNIDine Yes .1mg 0.1 mg, Unive rs (CATAPRES) 02-11 Oral, ity of tablet 0.1 21:18: TIDPRN, [place] mg 37 Starting Medical on Tue Branch 02/11/22 at 1618, Until Discontinu ed, Routine, SBP > 170 nystatin-tr 2022-0 Yes Topical, Un matt iamcinolone 02-11 TID, First it y of (MYCOLOG) 19:00: dose on [place] cream 00 [facility] Medical 02/11/22 at Branch 1400, Until Discontinu ed, Routine busPIRone 2022-0 Yes 30mg 30 mg, Univer s (BUSPAR) 02-11 Oral, BID, ity o f tablet 30 18:00: First dose [place] mg 00 on [facility] 02/11/22 at Branch 1300, Until Discontinu ed, Routine raltegravir 2021-0 Yes 400mg 400 mg, Un matt (ISENTRESS) 02-11 Oral, BID, it y of tablet 400 18:00: First dose [place] mg 00 on [facility] 02/11/22 at Branch 1300, Until Discontinu ed, JOE metoprolol 2021-0 Yes 100mg 100 mg, Uni vers tartrate 02-11 Oral, BID, ity o f (LOPRESSOR) 18:00: First dose [place] tablet 100 00 on [facility] Medical mg 02/11/22 at Branch 1300, Until Discontinu ed, Routine lisinopriL 2021-0 Yes 40mg 40 mg, Unive rs (PRINIVIL,Z 02-11 Oral, BID, it y of ESTRIL) 18:00: First dose [place] tablet 40 00 on [facility] mg 02/11/22 at Branch 1300, Until Discontinu ed, Routine emtricitabi 202-0 Yes 1{tbl} 1 tablet, [facility] ne-tenofovi 02-11 Oral, ity of r alafen 18:00: DAILY, [place] (DESCOVY) First dose Medi porfirio tablet 1 on [facility] tablet 02/11/22 at 1300, Until Discontinu ed, Routine ipratropium 2021-0 Yes .5mg 0.5 mg, Uni vers (ATROVENT) 02-11 Inhalation ity of 0.02 % 17:57: , QIDPRN, [place] nebulizer 10 Starting Medica l solution on [facility] Branch 0.5 mg 02/11/22 at 1257, Until Discontinu ed, Routine, Wheezing, Shortness of Breath amLODIPine 2021-0 Yes 10mg 10 mg, Unive rs (NORVASC) 02-11 Oral, ity of tablet 10 17:30: DAILY, [place] mg 00 First dose Medical (after Branch last modificati on) on [facility] 02/11/22 at 1230, Until Discontinu ed, Routine hydrALAZINE 2021- No 25mg 25 mg, Uni vers (APRESOLINE 02-11 Oral, ity of ) tablet 25 17:30: 12:54 DAILY, [place] mg 00 :55 First dose Medical (after Branch last modificati on) on [facility] 02/11/22 at 1230, Until Discontinu ed, Routine HYDROcodone 2021- No 1{tbl} 1 tablet, Univers -acetaminop 02-11 Oral, ity of hen (NORCO 14:11: 17:37 Q6HPRN, [place] 5) 5-325 mg 03 :24 Starting Medi porfirio tablet 1 on [facility] Branch tablet 02/11/22 at 0911, Until Tue02/12/22 at 1237, Routine, Pain (scale 7-10) melatonin Yes 3mg 3 mg, Univers (MELATIN) 02-11 Oral, ity of tablet 3 mg 14:08: QHSPRN, [place] 17 Starting Medical on [facility] Branch 02/11/22 at 0908, Until Discontinu ed, Routine, Insomnia acetaminoph 2021- No 1{tbl} 1 tablet, Univers en-codeine 02-11 Oral, ity of (TYLENOL 14:06: 17:37 Q6HPRN, [place] #3) 300-30 19 :24 Starting Medic al mg tablet 1 on [facility] Branch tablet 02/11/22 at 0906, Until Tue02/12/22 at 1237, Routine, Pain (scale 4-6) sennosides- Yes 1{tbl} 1 tablet, Univers docusate 02-11 Oral, ity of sodium 14:06: QDAILYPRN, [place] (SENOKOT-S) 09 Starting Medi porfirio 8.6-50 mg on [facility] Branch per tablet 02/11/22 at 1 tablet 0906, Until Discontinu ed, Routine, Constipati on ondansetron Yes 4mg 4 mg, Slow Univers (ZOFRAN 02-11 IV Push, ity of (PF)) 14:05: Q6HPRN, [place] injection 4 59 Starting Medi porfirio mg on [place] Branch 02/11/22 at 0905, Until Discontinu ed, Routine, Nausea and Vomiting (N/V) acetaminoph 2021-0 Yes 650mg 650 mg, Un matt en 02-11 Oral, ity of (TYLENOL) 14:04: Q6HPRN, [place] tablet 650 37 Starting Medic al mg on [place] Branch 02/11/22 at 0904, Until Discontinu ed, Routine, Pain (scale 1-3) lisinopril 0 Yes 40mg Take 40 mg U nivers (PRINIVIL,Z 02-11 by mouth 2 it y of ESTRIL) 40 12:54: (two) [place] mg tablet 19 times Medical daily. Branch metoprolol 0 Yes 100mg Take 100 Un matt tartrate 02-11 mg by ity of (LOPRESSOR) 12:54: mouth 2 [place] 100 mg 19 (two) Medical tablet times Branch daily. hydralAZINE 0 Yes 25mg Take 25 mg Univers (APRESOLINE 02-11 by mouth ity of ) 25 mg 09:10: daily. [place] tablet 54 Medical Branch amLODIPine 0 Yes 10mg Take 10 mg U nivers (NORVASC) 02-11 by mouth ity of 10 mg 09:10: daily. [facility] 54 [facility] Branch piperacilli 0 2021- No 3.375g 3.375 g, Univers n-tazobacta 02-11 IV ity of m (ZOSYN) 08:30: 09:28 Piggyback, [place] 3.375 g in 00 :00 ONCE, 1 Medica l NaCl 0.9% dose, On Branch (NS) 50 mL [place] MINI-BAG 02/11/22 at 0330, Administer over 30 Minutes, 50 mL
R jasmin for Anti-Infec tive: Empiric Therapy for Suspected Infection< br>Empiric Therapy Site: Blood
D uration of therapy: 72 hours iopamidol 2021-0 2- No [id number] 60mL 60 mL, Univers (ISOVUE 02-11 Intravenou ity o f 370-500 mL) 08:15: 08:15 s, ONCE, 1 [place] injection 00 :00 dose, On Medica l 60 mL [place] Branch 02/11/22 at 0315, Routine morpHINE (4 2021- No 4mg 4 mg, Slow Univers mg/mL) 02-11 IV Push, ity of injection 4 08:00: 07:49 ONCE, 1 [place] mg 00 :00 dose, On Medical [place] Branch 02/11/22 at 0300, STAT ondansetron 2021- No 4mg 4 mg, Slow Univers (ZOFRAN 02-11 IV Push, ity of (PF)) 07:45: 07:49 ONCE, 1 [place] injection 4 00 :00 dose, On Medi porfirio mg [place] Branch 02/11/22 at 0300, JOE ondansetron 2021- No 4mg 4 mg, Slow Univers (ZOFRAN 02-11 IV Push, ity of (PF)) 05:45: 05:08 ONCE, 1 [place] injection 4 00 :00 dose, On Medi porfirio mg [place] Branch 02/11/22 at 0045, JOE acetaminoph 2021- No 975mg 975 mg, U nivers en 02-11 Oral, ity of (TYLENOL) 05:15: 04:19 ONCE, 1 [place] tablet 975 00 :00 dose, On Medic al mg [facility] Branch 02/11/22 at 0015, JOE emtricitabi 0 Yes [id number] Take one Univers ne-tenofovi 9-12 po daily ity of r alafen 00:00: [place] (DESCOVY) 00 Medical tablet Branch emtricitabi 0 Yes [id number] Take one Univers ne-tenofovi 9-12 po daily ity of r alafen 00:00: [place] (DESCOVY) 00 Medical tablet Branch emtricitabi 0 Yes [id number] Take one Univers ne-tenofovi 9-12 po daily ity of r alafen 00:00: [place] (DESCOVY) 00 Medical tablet Branch emtricitabi Yes [id number] Take one Univers ne-tenofovi 9-12 po daily ity of r alafen 00:00: [place] (DESCOVY) 00 Medical tablet Branch naproxen 2021-0 Yes [id number] 500mg Take 1 U nivers (NAPROSYN) 7-24 tablet by ity of 500 mg 00:00: mouth in [place] tablet 00 the Medical morning Branch and 1 tablet in the evening. Take with meals. methocarbam 2021-0 Yes [id number] 500mg Take 1 Univers oL 500 mg 7-24 tablet by ity o f tablet 00:00: mouth 4 [place] 00 (four) Medical times Branch daily. naproxen 2021-0 Yes [id number] 500mg Take 1 U nivers (NAPROSYN) 7-24 tablet by ity of 500 mg 00:00: mouth in [place] tablet 00 the Medical morning Branch and 1 tablet in the evening. Take with meals. methocarbam 2021-0 Yes [id number] 500mg Take 1 Univers oL 500 mg 7-24 tablet by ity o f tablet 00:00: mouth 4 [place] 00 (four) Medical times Branch daily. naproxen 2021-0 Yes [id number] 500mg Take 1 U nivers (NAPROSYN) 7-24 tablet by ity of 500 mg 00:00: mouth in [place] tablet 00 the Medical morning Branch and 1 tablet in the evening. Take with meals. methocarbam 2021-0 Yes [id number] 500mg Take 1 Univers oL 500 mg 7-24 tablet by ity o f tablet 00:00: mouth 4 [place] 00 (four) Medical times Branch daily. esomeprazol 2021- No 40mg Take 40 mg Univers e (NEXIUM) 11-20 by mouth 2 it y of 40 mg 09:12: 00:00 (two) [place] capsule 03 :00 times Medical daily. Branch amiodarone 2021- No 100mg Take 100 U nivers 100 mg 11-20 mg by ity of tablet 09:11: 00:00 mouth [place] 57 :00 daily. Medical Branch apixaban 2021- No 5mg Take 5 mg Uni vers (ELIQUIS) 5 11-20 by mouth 2 i ty of mg tablet 09:11: 00:00 (two) [place] 35 :00 times Medical daily. Branch traZODONE 2021- No Take by [facility] ers (DESYREL) 11-20 mouth at ity o f 10 mg/mL 09:10: 00:00 bedtime. [place] oral 28 :00 Medical suspension Branch hydralAZINE Yes 25mg Take 25 mg Univers (APRESOLINE 11-20 by mouth ity of ) 25 mg 08:47: daily. [place] tablet 47 Medical Branch cephALEXin 2021- No [id number] 500mg Take 1 Univers (KEFLEX) 10-24 capsule [...] 7-10). Indication s: acute pain buPROPion Yes [id number] 150mg Take 1 U nivers XL 4-12 tablet by ity of (WELLBUTRIN 00:00: mouth [place] XL) 150 mg 00 daily. Medical 24 hr Branch tablet busPIRone Yes [id number] 30mg Take 1 Un matt 30 mg 4-12 tablet by ity of tablet 00:00: mouth 2 00 (two) Medical times Branch daily. SERTraline Yes [id number] 200mg Take 2 Univers 100 mg 4-12 tablets by ity of tablet 00:00: mouth [place] 00 daily. Medical Branch buPROPion Yes [id number] 150mg Take 1 U nivers XL 4-12 tablet by ity of (WELLBUTRIN 00:00: mouth [place] XL) 150 mg 00 daily. Medical 24 hr Branch tablet busPIRone 0 Yes [id number] 30mg Take 1 Un matt 30 mg 4-12 tablet by ity of tablet 00:00: mouth 2 [place] 00 (two) Medical times Branch daily. SERTraline Yes [id number] 200mg Take 2 Univers 100 mg 4-12 tablets by ity of tablet 00:00: mouth [place] 00 daily. Medical Branch buPROPion 2021-0 Yes [id number] 150mg Take 1 U nivers XL 4-12 tablet by ity of (WELLBUTRIN 00:00: mouth [place] XL) 150 mg 00 daily. Medical 24 hr Branch tablet busPIRone 2021-0 Yes [id number] 30mg Take 1 Un matt 30 mg 4-12 tablet by ity of tablet 00:00: mouth 2 [place] 00 (two) Medical times Branch daily. SERTraline 2021-0 Yes [id number] 200mg Take 2 Univers 100 mg 4-12 tablets by ity of tablet 00:00: mouth [place] 00 daily. Medical Branch buPROPion 2021-0 Yes [id number] 150mg Take 1 U nivers XL 4-12 tablet by ity of (WELLBUTRIN 00:00: mouth [place] XL) 150 mg 00 daily. Medical 24 hr Branch tablet busPIRone 2021-0 Yes [id number] 30mg Take 1 Un matt 30 mg 4-12 tablet by ity of tablet 00:00: mouth 2 [place] 00 (two) Medical times Branch daily. SERTraline 2021-0 Yes [id number] 200mg Take 2 Univers 100 mg 4-12 tablets by ity of tablet 00:00: mouth [place] 00 daily. Medical Branch buPROPion 2021-0 Yes [id number] 150mg Take 1 U nivers XL 4-12 tablet by ity of (WELLBUTRIN 00:00: mouth [place] XL) 150 mg 00 daily. Medical 24 hr Branch tablet busPIRone 2021-0 Yes [id number] 30mg Take 1 Un matt 30 mg 4-12 tablet by ity of tablet 00:00: mouth 2 [place] 00 (two) Medical times Branch daily. SERTraline 2021-0 Yes [id number] 200mg Take 2 Univers 100 mg 4-12 tablets by ity of tablet 00:00: mouth [place] 00 daily. Medical Branch raltegravir 2021-0 Yes [id number] 400mg Take 1 Univers (ISENTRESS) 3-28 tablet by ity of 400 mg 00:00: mouth 2 [place] tablet 00 (two) Medical times Branch daily. raltegravir 2021-0 Yes [id number] 400mg Take 1 Univers (ISENTRESS) 3-28 tablet by ity of 400 mg 00:00: mouth 2 [place] tablet 00 (two) Medical times Branch daily. raltegravir 2021-0 Yes [id number] 400mg Take 1 Univers (ISENTRESS) 3-28 tablet by ity of 400 mg 00:00: mouth 2 [place] tablet 00 (two) Medical times Branch daily. raltegravir 2021-0 Yes [id number] 400mg Take 1 Univers (ISENTRESS) 3-28 tablet by ity of 400 mg 00:00: mouth 2 [place] tablet 00 (two) Medical times Branch daily. raltegravir 2021-0 Yes [id number] 400mg Take 1 Univers (ISENTRESS) 3-28 tablet by ity of 400 mg 00:00: mouth 2 [place] tablet 00 (two) Medical times Branch daily. LORazepam 1 2021- No [id number] 1mg Take 1 Univers mg tablet 3-10 12- tablet by ity of 00:00: 00:00 mouth [...] times a tablet day. emtricitabi 2021- No [id number] Take one Univers ne-tenofovi 1-20 09-12 po daily ity of r alafen 00:00: 00:00 [place] (DESCOVY) 00 :00 Medical tablet Branch metoprolol 0 Yes [id number] Take 1 [facility] tartrate 7-26 tablet Health (Lopressor) 00:00: (100 mg 100 MG 00 total) by tablet mouth 2 (two) times a day AND 0.5 tablets (50 mg total) every night. metoprolol 0 Yes [id number] Take 1 [facility] tartrate 7-26 tablet Health [...] area in groin) hydrALAZINE 0 Yes 50mg Q.[id number] Take 50 mg [facility] (APRESOLINE -19 [id number] [address] mouth [facility] ) 50 MG [...] area in groin) hydrALAZINE 0 Yes 50mg Q.[id number] Take 50 mg [facility] (APRESOLINE 7-19 [id number] [facility] mouth [facility] ) 50 MG [...] (affected area in groin) hydrALAZINE Yes 50mg Q.[id number] Take 50 mg [facility] (APRESOLINE 7-19 [id number] [facility] mouth 3 [facility] ) 50 MG [...] area in groin) hydrALAZINE 0 Yes 50mg Q.[id number] Take 50 mg [facility] (APRESOLINE 7-19 [id number] [facility] mouth [facility] ) 50 MG [...] area in groin) hydrALAZINE 0 Yes 50mg Q.[id number] Take 50 mg [facility] (APRESOLINE 7-19 [id number] [address] mouth 3 [facility] ) 50 MG [...] (affected area in groin) hydrALAZINE Yes 50mg Q.[id number] Take 50 mg [facility] (APRESOLINE 7-19 [id number] [facility] mouth [facility] ) 50 MG [...] area in groin) hydrALAZINE 0 Yes 50mg Q.[id number] Take 50 mg [facility] (APRESOLINE 7-19 [id number] [facility] mouth [facility] ) 50 MG [...] Hospita capsule 25 before l breakfast. amIODarone 2020-0 Yes 200mg QD Take 200 Me thodi [...] area in groin) hydrALAZINE 0 Yes 50mg Q.[id number] Take 50 mg [facility] (APRESOLINE 7-19 [id number] [address] mouth [facility] ) 50 MG [...] (affected area in groin) hydrALAZINE Yes 50mg Q.[id number] Take 50 mg [facility] (APRESOLINE 7-19 [id number] by mouth [facility] ) 50 MG [...] (affected area in groin) hydrALAZINE Yes 50mg Q.[id number] Take 50 mg [facility] (APRESOLINE 7-19 [id number] [address] mouth [facility] ) 50 MG [...] tablet 25 daily. l nystatin-tr 0 Yes [id number] Apply to [facility] 7-06 area(s) 3 ity of cream 00:00: (three) [place] 00 times Medical daily. Branch nystatin-tr 2020-0 Yes [id number] Apply to [facility] 7-06 area(s) 3 ity of cream 00:00: (three) [place] 00 times Medical daily. Branch nystatin-tr 2020-0 Yes [id number] [facility] cream 00:00: (three) [place] 00 times Medical daily. Branch nystatin-tr 2020-0 Yes [id number] [facility] ity of cream 00:00: (three) [place] 00 times Medical daily. Branch nystatin-tr 2020-0 Yes [id number] [facility] ity of cream 00:00: (three) [place] 00 times Medical daily. Branch budesonide- 2020-0 2020- No 1{puff} QD Inhale 1 [facility] formoteroL 6-25 06-[address] (SYMBICORT) 14:37: 00:00 morning. H ospita 160-4.5 02 :00 l mcg/actuati on inhaler hydrALAZINE 0 Yes [id number] 50mg Q.[id number] Take 1 [facility] (Apresoline 6-11 [id number] tablet (50 Health ) 50 MG 00:00: 3D mg total) tablet 00 by mouth 3 (three) times a day. hydrALAZINE Yes [id number] 50mg Q.[id number] Take 1 [facility] (Apresoline 6-11 [id number] tablet (50 Health ) 50 MG 00:00: [...] % 00:00: ointment 00 nystatin 2020- No [id number] Q.25D Take 5 mL [facility] (MYCOSTATIN 10-06 [...] ia 4-10 (Same as: l 14:00: Norvasc) [place] 00 emtricitabi No Notes: Caesar lisa ne 200 MG / 4-10 (Same as: l tenofovir 14:00: Descovy) Herm ariel alafenamide 00 Non-formul 25 MG Oral nancy Tablet [Descovy] Sertraline No Notes: Memor ia 4-10 (Same as: l 14:00: Zoloft) [place] 00 Sertraline No Notes: Memor ia 4-10 (Same as: l 14:00: Zoloft) [place] 00 pantoprazol No Notes: Caesar lisa e 4-10 Tablet l 14:00: should not [place] 00 be chewed or crushed. (Same as: Protonix) Amiodarone No Notes: Memor ia 4-10 (Same as: l 14:00: Cordarone) [place] 00 Amlodipine No Notes: Memor ia 4-10 (Same as: l 14:00: Norvasc) [place] 00 emtricitabi No Notes: Caesar lisa ne 200 MG / 4-10 (Same as: l tenofovir 14:00: Descovy) Herm ariel alafenamide 00 Non-formul 25 MG Oral nancy Tablet [Descovy] Sertraline No Notes: Memor ia 4-10 (Same as: l 14:00: Zoloft) [place] 00 pantoprazol No Notes: [place] lisa e 4-10 Tablet l 14:00: should not [place] 00 be chewed or crushed. (Same as: [...] e 4-10 Tablet l 14:00: should not [place] 00 be chewed or crushed. (Same as: [...] e 4-10 Tablet l 14:00: should not [place] 00 be chewed or crushed. (Same as: Protonix) Amiodarone No Notes: Memor ia 4-10 (Same as: l 14:00: Cordarone) [place] 00 Amlodipine No Notes: Memor ia 4-10 [...] 0.9% 4-10 (Same as: l 02:00: BD [place] 00 Posiflush) Eliquis No Notes: Memoria 4-10 [...] 0.9% 4-10 (Same as: l 02:00: BD [place] Posiflush) Eliquis No Notes: Memoria 4-10 Same [...] Memoria 4-10 Same as: l 02:00: Eliquis [place] Hydralazine No Notes: Caesar lisa Hydrochlori 4-10 [...] not exceed l #3 00:12: 4gm/day of [place] acetaminop hen. (Same as: Tylenol with Codeine # 3) acetaminoph No Notes: Do M emoria en-codeine 4-10 not exceed l #3 00:12: 4gm/day of [place] acetaminop hen. (Same as: Tylenol with Codeine # 3) acetaminoph No Notes: Do M emoria en-codeine 4-10 not exceed l #3 00:12: 4gm/day of [place] acetaminop hen. (Same as: Tylenol with Codeine # 3) acetaminoph No Notes: Do M emoria en-codeine 4-10 not exceed l #3 00:12: 4gm/day of [place] acetaminop hen. (Same as: Tylenol with Codeine [...] l Tablet 22:00: [facility]: [facility] Drug form: TAB, BID, [...] tartrate 4-09 tab, l 22:00: Route: PO, [place] Drug form: TAB, BID, Dosing Weight 97.273, [...] oria 4- tab, l 22:00: Route: PO, [place] 00 Drug form: TAB, BID, Dosing Weight [...] tartrate 4-09 tab, l 22:00: Route: PO, [place] 00 Drug form: TAB, BID, Dosing Weight 97.273, kg, Start date: 08/29/20 17:00:00 CDT, Duration: 30 day, Stop date: 09/28/20 9:00:00 CDT Raltegravir 2020-0 No 400 mg, 1 M emoria 400 MG Oral 4- tab, l Tablet 22:00: Route: [facility], [facility] nn [facility] Drug form: TAB, BID, Dosing Weight 97.273, kg, Start date: 08/29/20 17:00:00 CDT, Duration: 30 day, Stop date: 09/28/20 9:00:00 CDT, 0 Buspirone 2020-0 No Notes: Memori a 08-29 (Same As: l 22:00: BuSpar) Lisinopril 2020-0 No 40 mg, 1 Mem oria - tab, l 22:00: Route: PO, Mraty 00 Drug form: TAB, BID, Dosing Weight 97.273, kg, Start date: 08/29/20 17:00:00 CDT, Duration: 30 day, Stop date: 09/28/20 9:00:00 CDT metoprolol 1-0 No 100 mg, 1 Me moria tartrate 4-09 tab, l 22:00: Route: PO, [place] Drug form: TAB, BID, Dosing Weight 97.273, [...] oria 4-09 tab, l 22:00: Route: PO, [place] Drug form: TAB, BID, Dosing Weight 97.273, [...] oria 4-09 tab, l 22:00: Route: PO, [place] 00 Drug form: TAB, BID, Dosing Weight [...] Notes: Memoria 4-09 (Same l 17:07: as:MORPhin [place] 00 e Sulfate) Morphine No Notes: Memoria [...] tab, PO, l oral 15:27: Daily, # [place] enteric 00 30 tab, 0 coated Refill(s), tablet Pharmacy: [facility], 162.56, cm, 08/29/20 5:30:00 CDT, Height, 97.273, kg, 08/29/20 5:30:00 CDT, Weight pantoprazol 2021-0 Yes 40 mg = 1 M emoria e 40 mg 4-09 tab, PO, l oral 15:27: Daily, # [place] enteric 00 30 tab, 0 coated Refill(s), tablet Pharmacy: [facility] 149, 162.56, cm, 08/29/20 5:30:00 CDT, Height, 97.273, kg, 08/29/20 5:30:00 CDT, Weight pantoprazol 2021-0 Yes 40 mg = 1 M emoria e 40 mg 4-09 tab, PO, l oral 15:27: Daily, # [place] enteric 00 30 tab, 0 coated Refill(s), tablet Pharmacy: [facility] 149, 162.56, cm, 08/29/20 5:30:00 CDT, Height, 97.273, kg, 08/29/20 5:30:00 CDT, Weight pantoprazol 2021-0 Yes 40 mg = 1 M emoria e 40 mg 4-09 tab, PO, l oral 15:27: Daily, # [place] enteric 00 30 tab, 0 coated Refill(s), tablet Pharmacy: [facility] 149, 162.56, cm, 08/29/20 5:30:00 CDT, Height, 97.273, kg, 08/29/20 5:30:00 CDT, Weight pantoprazol 2021-0 Yes 40 mg = 1 M emoria e 40 mg 4-09 tab, PO, l oral 15:27: Daily, # [place] enteric 00 30 tab, 0 coated Refill(s), tablet Pharmacy: [facility] 149, 162.56, cm, 08/29/20 5:30:00 CDT, Height, 97.273, kg, 08/29/20 5:30:00 CDT, Weight pantoprazol 2021-0 Yes 40 mg = 1 M emoria e 40 mg 4-09 tab, PO, l oral 15:27: Daily, # [place] enteric 00 30 tab, 0 coated Refill(s), tablet Pharmacy: [facility] 149, 162.56, cm, 08/29/20 5:30:00 CDT, Height, 97.273, kg, 08/29/20 5:30:00 CDT, Weight pantoprazol 2020-0 Yes 40 mg = 1 M emoria e 40 mg 4-09 tab, PO, l oral 15:27: Daily, # [place] enteric 00 30 tab, 0 coated Refill(s), tablet Pharmacy: [facility] 149, 162.56, cm, 08/29/20 5:30:00 [...] Skylar nn 00 tab, 0 Refill(s), Pharmacy: [place] [id number], 162.56, cm, 08/29/20 5:30:00 CDT, Height, 97.273, [...] nn 00 tab, 0 Refill(s), Pharmacy: [facility] 149, 162.56, cm, 08/29/20 5:30:00 [...] nn 00 tab, 0 Refill(s), Pharmacy: [facility] 149, 162.56, cm, 08/29/20 5:30:00 CDT, Height, 97.273, kg, 08/29/20 5:30:00 CDT, Weight pantoprazol 2020-0 No 40 mg = 1 M emoria e 40 mg 4-09 tab, PO, l oral 15:26: Daily, # [place] enteric 00 30 tab, 0 coated Refill(s) tablet sucralfate 2020-0 Yes 1 gm = 1 Mem oria 1 g oral 4-09 tab, PO, l tablet 15:26: Q12H, # 28 Skylar nn 00 tab, 0 Refill(s), Pharmacy: [facility] 149, 162.56, cm, 08/29/20 5:30:00 CDT, Height, 97.273, kg, 08/29/20 5:30:00 CDT, Weight pantoprazol 2020-0 No 40 mg = 1 M emoria e 40 mg 4-09 tab, PO, l oral 15:26: Daily, # [place] enteric 00 30 tab, 0 coated Refill(s) tablet sucralfate 2020-0 Yes 1 gm = 1 Mem oria 1 g oral 4-09 tab, PO, l tablet 15:26: Q12H, # 28 Skyl[place] nn 00 tab, 0 Refill(s), Pharmacy: [facility] 149, 162.56, cm, 08/29/20 5:30:00 CDT, Height, 97.273, kg, 08/29/20 5:30:00 CDT, Weight pantoprazol 2020-0 No 40 mg = 1 M emoria e 40 mg 4-09 tab, PO, l oral 15:26: Daily, # [place] enteric 00 30 tab, 0 coated Refill(s) tablet sucralfate 2020-0 Yes 1 gm = 1 Mem oria 1 g oral 4-09 tab, PO, l tablet 15:26: Q12H, # 28 Skylar nn 00 tab, 0 Refill(s), Pharmacy: [facility] 149, 162.56, cm, 08/29/20 5:30:00 CDT, Height, 97.273, kg, 08/29/20 5:30:00 CDT, Weight pantoprazol No 40 mg = 1 M emoria e 40 mg 4-09 tab, PO, l oral 15:26: Daily, # [place] enteric 00 30 tab, 0 coated Refill(s) tablet sucralfate Yes 1 gm = 1 Mem oria 1 g oral 4-09 tab, PO, l tablet 15:26: Q12H, # 28 Skylar nn 00 tab, 0 Refill(s), Pharmacy: [facility] 149, 162.56, cm, 08/29/20 5:30:00 CDT, Height, 97.273, kg, 08/29/20 5:30:00 CDT, Weight Saline No Notes: Memoria Flush 0.9% 4-09 (Same as: l 15:25: BD [place] 00 Posiflush) Lorazepam No Notes: Memori a 4-09 (Same as: l 15:25: Ativan) Saline No Notes: Memoria Flush 0.9% 4-09 (Same as: l 15:25: BD [place] 00 Posiflush) Lorazepam No Notes: Memori a 4-09 (Same as: l 15:25: Ativan) [place] Saline No Notes: Memoria Flush 0.9% 4-09 (Same as: l 15:25: BD [place] 00 Posiflush) Saline No Notes: Memoria Flush 0.9% 4-09 (Same as: l 15:25: BD [place] 00 Posiflush) Lorazepam No Notes: Memori a 4-09 (Same as: l 15:25: Ativan) [place] Lorazepam No Notes: Memori a 4-09 (Same as: l 15:25: Ativan) [place] Saline 2021-0 No Notes: Memoria Flush 0.9% [...] 0.9% 4-09 (Same as: l 15:25: BD [place] Posiflush) Lorazepam No Notes: Memori a 4-09 (Same as: l 15:25: Ativan) Isuprel HCl No Route: IV, Memoria (ANES) 0.2 08-29 Drug form: l mg + 15:00: INJ, [place] Dosing Weight 97.3, kg, Start date: 08/29/20 10:00:00 CDT, Stop date: 08/29/20 11:00:00 CDT Isuprel HCl No Route: IV, Memoria (ANES) 0.2 08-29 Drug form: l mg + 15:00: INJ, [place] Dosing Weight 97.3, kg, Start date: 08/29/20 10:00:00 CDT, Stop date: 08/29/20 11:00:00 CDT Isuprel HCl No Route: IV, Memoria (ANES) 0.2 08-29 Drug form: l mg + 15:00: INJ, [place] Dosing Weight 97.3, kg, Start date: 08/29/20 10:00:00 CDT, Stop date: 08/29/20 11:00:00 CDT Isuprel HCl No Route: IV, Memoria (ANES) 0.2 08-29 Drug form: l mg + 15:00: INJ, [place] Dosing Weight 97.3, kg, Start date: 08/29/20 [...] INJ, ONCE, Stop date: 08/29/20 9:18:00 CDT Oxycodone 2020-0 No 5 mg, Memoria [...] lisa 08-29 Route: l 14:01: IVP, PRN, [place] 00 Dosing Weight 97.273, kg, PRN Benzodiaze [...] ia 08-29 Route: l 14:01: IVP, ONCE, [place] 00 Dosing Weight 97.273, kg, PRN Nausea & Vomiting, Start date: 08/29/20 9:01:00 CDT Labetalol 1-0 No 10 mg, Memori a 08-29 Route: l 14:01: IVP, [place] 00 Q5Min, Dosing Weight 97.273, kg, PRN Elevated BP, Start date: 08/29/20 9:01:00 CDT, Duration: 5 doses or times, Stop date: Limited # of times Acetaminoph 1-0 No 1,000 mg, M emoria en 08-29 Route: PO, l 14:01: Drug form: [place] 00 TAB, ONCE, Dosing Weight 97.273, kg, [...] lisa 08-29 Route: l 14:01: IVP, PRN, [place] 00 Dosing Weight 97.273, kg, PRN Benzodiaze [...] ia 08-29 Route: l 14:01: IVP, ONCE, [place] 00 Dosing Weight 97.273, kg, PRN Nausea [...] 08-29 Route: PO, l 14:01: Drug form: [place] 00 TAB, ONCE, Dosing Weight 97.273, kg, [...] oria ne 08-29 Route: l 14:01: IVP, [place] 00 Q5Min, Dosing Weight 97.273, kg, PRN [...] Memori a 08-29 Route: l 14:01: IVP, [place] 00 Q5Min, Dosing Weight 97.273, kg, PRN [...] oria ne 08-29 Route: l 14:01: IVP, [place] 00 Q5Min, Dosing Weight 97.273, kg, PRN [...] lisa 08-29 Route: l 14:01: IVP, PRN, [place] Dosing Weight 97.273, kg, PRN Benzodiaze pine [...] ia 08-29 Route: l 14:01: IVP, ONCE, [place] 00 Dosing Weight 97.273, kg, PRN Nausea [...] Memori a 08-29 Route: l 14:01: IVP, [place] 00 Q2MIN, Dosing Weight 97.273, kg, PRN [...] 08-29 Route: PO, l 14:01: Drug form: [place] 00 TAB, ONCE, Dosing Weight 97.273, kg, [...] Route: PO, l 14:01: Drug form: [place] TAB, ONCE, Dosing Weight 97.273, kg, PRN Pain Score 1-3, Start date: 08/29/20 9:01:00 CDT lidocaine No [...] ONCE, Stop date: 08/29/20 8:52:00 CDT lidocaine No Route: IV, Me moria [...] 8:52:00 CDT rocuronium 202-0 No Route: IV, Elbert emoria (ANES) 08-29 Drug form: l 13:52: [...] 8:52:00 CDT rocuronium 202-0 No Route: IV, El[place] emoria (ANES) 08-29 Drug form: l 13:52: [...] Drug form: l 10 13:15: INJ, Start [place] microgram 00 date: 08/29/20 8:15:00 CDT, Stop date: 08/29/20 9:15:00 CDT norepinephr 2020-0 No Route: IV, Memoria ine (ANES) 08-29 Drug form: l 10 13:15: INJ, Start [place] microgram date: 08/29/20 8:15:00 CDT, Stop date: 08/29/20 9:15:00 CDT norepinephr 2020-0 No Route: IV, Memoria ine (ANES) 08-29 Drug form: l 10 13:15: INJ, Start [place] microgram date: 08/29/20 8:15:00 CDT, Stop date: 08/29/20 9:15:00 CDT norepinephr 2020-0 No Route: IV, Memoria ine (ANES) 08-29 Drug form: l 10 13:15: INJ, Start [place] microgram date: 08/29/20 8:15:00 CDT, Stop date: 08/29/20 9:15:00 CDT norepinephr 2020-0 No Route: IV, Memoria ine (ANES) 08-29 Drug form: l 10 13:15: INJ, Start [place] microgram date: 08/29/20 8:15:00 CDT, Stop date: [...] 4-09 Total l 0.9% IV 12:30: Volume: [place] (ANES) 1000 00 1,000, mL Start date: 08/29/20 7:30:00 CDT, Stop date: 08/29/20 8:30:00 CDT Sodium 2021-0 No Route: IV, Memor ia Chloride 4-09 Total l 0.9% IV 12:30: Volume: [place] (ANES) 1000 00 1,000, mL Start date: [...] 4-09 Total l 0.9% IV 12:30: Volume: [place] (ANES) 1000 00 1,000, mL Start date: 08/29/20 7:30:00 CDT, Stop date: 08/29/20 8:30:00 CDT Sodium 2021-0 No Route: IV, Memor ia Chloride 4-09 Total l 0.9% IV 12:30: Volume: [place] (ANES) 1000 00 1,000, mL Start date: 08/29/20 7:30:00 CDT, Stop date: 08/29/20 8:30:00 CDT Sodium 2021-0 No Route: IV, Memor ia Chloride 4-09 Total l 0.9% IV 12:30: Volume: [place] (ANES) 1000 00 1,000, mL Start date: [...] PO, l Hydrochlori 11:42: Q24H, # 30 [place] de 150 MG 00 tab, 0 Extended Refill(s) Release Tablet 24 HR Yes 150 mg = 1 Memori a Bupropion -09 tab, PO, l Hydrochlori 11:42: Q24H, # 30 [place] de 150 MG 00 tab, 0 Extended Refill(s) Release Tablet 24 HR 0 Yes 150 mg = 1 Memori a Bupropion 4-09 tab, PO, l Hydrochlori 11:42: Q24H, # 30 [place] de 150 MG 00 tab, 0 Extended Refill(s) Release Tablet 24 0 Yes 150 mg = 1 Memori a Bupropion -09 tab, PO, l Hydrochlori 11:42: Q24H, # 30 [place] de 150 MG 00 tab, 0 Extended Refill(s) Release Tablet 24 HR Yes 150 mg = 1 Memori a Bupropion - tab, PO, l Hydrochlori 11:42: Q24H, # 30 [place] de 150 MG 00 tab, 0 Extended Refill(s) Release Tablet apixaban 2020-0 Yes 5 mg, PO, Me moria MG Oral 4 Q12H, tab, l Tablet 11:41: 0 [place] [Eliquis] 00 Refill(s), For Atrial Fibrilatio n [...] 4-09 Q12H, tab, l Tablet 11:41: 0 [place] [Eliquis] 00 Refill(s), For Atrial Fibrilatio n apixaban 5 Yes 5 mg, PO, Me moria MG Oral 4-09 Q12H, tab, l Tablet 11:41: 0 [place] [Eliquis] 00 Refill(s), For Atrial Fibrilatio n AMIODarone Yes 200 mg = 1 M emoria 200 mg oral 4-09 tab, PO, l tablet 11:38: Daily, # [place] 00 90 tab, 3 Refill(s) AMIODarone 0 Yes 200 mg = 1 M emoria 200 mg oral 4-09 tab, PO, l tablet 11:38: Daily, # [place] 00 90 tab, 3 Refill(s) AMIODarone 0 Yes 200 mg = 1 M emoria 200 mg oral 4-09 tab, PO, l tablet 11:38: Daily, # [place] 00 90 tab, 3 Refill(s) AMIODarone 0 Yes 200 mg = 1 M emoria 200 mg oral 4-09 tab, PO, l tablet 11:38: Daily, # [place] 00 90 tab, 3 Refill(s) AMIODarone 2020-0 Yes 200 mg = 1 M emoria 200 mg oral 4-09 tab, PO, l tablet 11:38: Daily, # [place] 00 90 tab, 3 Refill(s) AMIODarone 2020-0 [...] st 00:00: Hospita 00 l Eliquis 5 2021-0 Yes [facility] mg tablet 08-16 00:00: [facility]ospita 00 l Eliquis 5 2020-0 Yes [facility] mg tablet 08-16 st 00:[facility]: [facility]osp[facility] 00 l predniSONE 2020-0 Yes [facility] (Deltasone) 3-13 Health [...] Health MG tablet 00:00: tablet 00 lisinopril 2019- Yes 40mg Take 40 mg [...] 00:00: [place] on inhaler Medical Branch albuterol 0 Yes Univers 90 4-14 ity of mcg/actuati 00:00: [place] on inhaler Medical Branch albuterol Yes albuterol [...] Immunizations Ordered Filled Immunization Date Status Comments [facility] e Immunization Name Name SARS-COV-2 COVID-19 2022-03-05 Completed Unive rsity of DIMITRIS-SUCROSE 00:00:00 [place] [facility] l VACCINE 12 YRS+, Branch BIVALENT 0.3ML, IM, (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) Influenza Virus 2022-03-05 Completed Universit y of Vaccine,quad 00:00:00 [place] [facility] Im,preserve Free Branch 65+ SARS-COV-2 COVID-19 2020-07-23 Completed Unive rsity of PFIZER VACCINE 00:00:00 [facility] [place] [facility] porfirio Branch PFIZER COVID-19 2020-07-23 Completed [facility] MRNA VACCINATION 00:00:00 Hospital PFIZER COVID-19 2020-07-23 Completed [facility] VACCINATION 00:00:00 Hospital PFIZER COVID-19 2020-07-23 Completed [facility] VACCINATION 00:00:00 Hospital PFIZER COVID-19 2020-07-23 Completed [facility] VACCINATION 00:00:00 Hospital PFIZER COVID-19 2020-07-23 Completed [facility] VACCINATION 00:00:00 Hospital PFIZER COVID-19 2020-07-23 Completed [facility] VACCINATION 00:00:00 Hospital PFIZER COVID-19 2020-07-23 Completed [facility] VACCINATION 00:00:00 Hospital PFIZER COVID-19 2020-07-23 Completed [facility] VACCINATION 00:00:00 Hospital PFIZER COVID-19 2020-07-23 Completed [facility] MRNA VACCINATION 00:00:00 [facility] PFIZER COVID-19 2020-07-23 Completed [facility] MRNA VACCINATION 00:00:00 [facility] SARS-COV-2 COVID-19 2020-07-02 Completed Unive rsity of PFIZER VACCINE 00:00:00 [facility] PFIZER COVID-19 2020-07-02 Completed [facility] MRNA VACCINATION 00:00:00 [facility] PFIZER COVID-19 2020-07-02 Completed [facility] MRNA VACCINATION 00:00:00 [facility] PFIZER COVID-19 2020-07-02 Completed [facility] MRNA VACCINATION 00:00:00 [facility] PFIZER COVID-19 2020-07-02 Completed [facility] MRNA VACCINATION 00:00:00 [facility] PFIZER COVID-19 2020-07-02 Completed [facility] MRNA VACCINATION 00:00:00 [facility] PFIZER COVID-19 2020-07-02 Completed [facility] MRNA VACCINATION 00:00:00 [facility] PFIZER COVID-19 2020-07-02 Completed [facility] MRNA VACCINATION 00:00:00 [facility] PFIZER COVID-19 2020-07-02 Completed [facility] MRNA VACCINATION 00:00:00 [facility] PFIZER COVID-19 2020-07-02 Completed [facility] MRNA VACCINATION 00:00:00 [facility] PFIZER COVID-19 2020-07-02 Completed [facility] MRNA VACCINATION 00:00:00 [facility] Influenza Virus 2017-03-08 Completed Universit y of Vaccine 00:00:00 [facility] Influenza Virus 2017-03-08 Completed Universit y of Vaccine 00:00:00 [facility] Influenza Virus 2017-03-08 Completed Universit y of Vaccine 00:00:00 [facility] Influenza Virus 2017-03-08 Completed Universit y of Vaccine 00:00:00 [facility] Influenza Virus 2017-03-08 Completed Universit y of Vaccine 00:00:00 [facility] Influenza Virus 2014-01-30 Completed Universit y of Vaccine (3+ yrs) 00:00:00 [facility] dical Branch Pneumococcal 13 2014-01-30 Completed Universit y of Conjugate, PCV13 00:00:00 [facility] (Prevnar 13) Branch Influenza Virus 2014-01-30 Completed Universit y of Vaccine (3+ yrs) 00:00:00 [facility] Pneumococcal 13 2014-01-30 Completed [facility] y of Conjugate, PCV13 00:00:00 [facility] (Prevnar 13) Branch Influenza Virus 2014-01-30 Completed [facility] of Vaccine (3+ yrs) 00:00:00 [facility] Pneumococcal 13 2014-01-30 Completed [facility] of Conjugate, PCV13 00:00:00 [facility] (Prevnar 13) Branch Influenza Virus 2014-01-30 Completed [facility] of Vaccine (3+ yrs) 00:00:00 [facility] Pneumococcal 13 2014-01-30 Completed [facility] of Conjugate, PCV13 00:00:00 [facility] (Prevnar 13) Branch Influenza Virus 2014-01-30 Completed [facility] of Vaccine (3+ yrs) 00:00:00 [facility] Pneumococcal 13 2014-01-30 Completed [facility] y of Conjugate, PCV13 00:00:00 [facility] (Prevnar 13) Branch Pneumococcal 2012-02-16 Completed [facility] o f Polysaccharide, 00:00:00 [place] [facility] PPSV23 (PNEUMOVAX) Branch Influenza Virus 2012-02-16 Completed [facility] Vaccine 00:00:00 [facility] PPD (TB) 2012-02-16 Completed [facility] 00:00:00 [facility] Pneumococcal 2012-02-16 Completed [facility] o f Polysaccharide, 00:00:00 [place] [facility] PPSV23 (PNEUMOVAX) Branch Influenza Virus 2012-02-16 Completed [facility] Vaccine 00:00:00 [facility] PPD (TB) 2012-02-16 Completed [facility] of 00:00:00 [facility] Pneumococcal 2012-02-16 Completed University o f Polysaccharide, 00:00:00 [place] [facility] PPSV23 (PNEUMOVAX) Branch Influenza Virus 2012-02-16 Completed Universit y of Vaccine 00:00:00 [facility] PPD (TB) 2012-02-16 Completed University of 00:00:00 [facility] Pneumococcal 2012-02-16 Completed University o f Polysaccharide, 00:00:00 [place] [facility] PPSV23 (PNEUMOVAX) Branch Influenza Virus 2012-02-16 Completed Universit y of Vaccine 00:00:00 [facility] PPD (TB) 2012-02-16 Completed University of 00:00:00 [facility] Pneumococcal 2012-02-16 Completed University o f Polysaccharide, 00:00:00 [facility] PPSV23 (PNEUMOVAX) [place] Influenza Virus 2012-02-16 Completed Universit y of Vaccine 00:00:00 [facility] PPD (TB) 2012-02-16 Completed University of 00:00:00 [facility] Hep B, Adol or Pedi 2011-09-01 Completed Unive rsity of Dosage 00:00:00 [facility] Hep B, Adol or Pedi 2011-09-01 Completed Unive rsity of Dosage 00:00:00 [facility] Hep B, Adol or Pedi 2011-09-01 Completed Unive rsity of Dosage 00:00:00 [facility] Hep B, Adol or Pedi 2011-09-01 Completed Unive rsity of Dosage 00:00:00 [facility] Hep B, Adol or Pedi 2011-09-01 Completed Unive rsity of Dosage 00:00:00 [facility] Hep B, Adol or Pedi 2011-03-17 Completed Unive rsity of Dosage 00:00:00 [facility] Hep B, Adol or Pedi 2011-03-17 Completed Unive rsity of Dosage 00:00:00 [facility] Hep B, Adol or Pedi 2011-03-17 Completed Unive rsity of Dosage 00:00:00 [facility] Hep B, Adol or Pedi 2011-03-17 Completed Unive rsity of Dosage 00:00:00 [facility] Hep B, Adol or Pedi 2011-03-17 Completed Unive rsity of Dosage 00:00:00 [facility] Influenza Virus 2011-02-10 Completed Universit y of Vaccine 00:00:00 [facility] Hep B, Adol or Pedi 2011-02-10 Completed Unive rsity of Dosage 00:00:00 [facility] Influenza Virus 2011-02-10 Completed Universit y of Vaccine 00:00:00 [facility] Hep B, Adol or Pedi 2011-02-10 Completed Unive rsity of Dosage 00:00:00 [facility] Influenza Virus 2011-02-10 Completed Universit y of Vaccine 00:00:00 [facility] Hep B, Adol or Pedi 2011-02-10 Completed Unive rsity of Dosage 00:00:00 [facility] Influenza Virus 2011-02-10 Completed Universit y of Vaccine 00:00:00 [facility] Hep B, Adol or Pedi 2011-02-10 Completed Unive rsity of Dosage 00:00:00 [facility] Influenza Virus 2011-02-10 Completed Universit y of Vaccine 00:00:00 [facility] Hep B, Adol or Pedi 2011-02-10 Completed Unive rsity of Dosage 00:00:00 [facility] PPD (TB) 2010-11-18 Completed University of 00:00:00 [facility] TDAP (ADACEL) 2010-11-18 Completed University of VACCINE 00:00:00 [facility] PPD (TB) 2010-11-18 Completed University of 00:00:00 [facility] TDAP (ADACEL) 2010-11-18 Completed University of VACCINE 00:00:00 [facility] PPD (TB) 2010-11-18 Completed University of 00:00:00 [facility] TDAP (ADACEL) 2010-11-18 Completed University of VACCINE 00:00:00 [facility] PPD (TB) 2010-11-18 Completed University of 00:00:00 [facility] TDAP (ADACEL) 2010-11-18 Completed University of VACCINE 00:00:00 [facility] PPD (TB) 2010-11-18 Completed University of 00:00:00 [facility] TDAP (ADACEL) 2010-11-18 Completed University of VACCINE 00:00:00 [facility] HEPATITIS A 2004-03-02 Completed University of 00:00:00 [facility] HEPATITIS A 2004-03-02 Completed University of 00:00:00 [facility] HEPATITIS A 2004-03-02 Completed University of 00:00:00 [facility] HEPATITIS A 2004-03-02 Completed University of 00:00:00 [facility] HEPATITIS A 2004-03-02 Completed University of 00:00:00 [facility] HEPATITIS A 2003-08-01 Completed University of 00:00:00 [facility] HEPATITIS A 2003-08-01 Completed University of 00:00:00 [facility] HEPATITIS A 2003-08-01 Completed University of 00:00:00 [facility] HEPATITIS A 2003-08-01 Completed University of 00:00:00 [facility] HEPATITIS A 2003-08-01 Completed University of 00:00:00 [facility] Pneumococcal 2001-10-04 Completed University o f Polysaccharide, 00:00:00 [place] [facility] PPSV23 (PNEUMOVAX) Branch PPD (TB) 2001-10-04 Completed University of 00:00:00 [facility] Pneumococcal 2001-10-04 Completed University o f Polysaccharide, 00:00:00 [place] [facility] PPSV23 (PNEUMOVAX) Branch PPD (TB) 2001-10-04 Completed University of 00:00:00 [facility] Pneumococcal 2001-10-04 Completed University o f Polysaccharide, 00:00:00 [place] [facility] PPSV23 (PNEUMOVAX) Branch PPD (TB) 2001-10-04 Completed University of 00:00:00 [facility] Pneumococcal 2001-10-04 Completed University o f Polysaccharide, 00:00:00 [place] [facility] PPSV23 (PNEUMOVAX) Branch PPD (TB) 2001-10-04 Completed University of 00:00:00 [facility] Pneumococcal 2001-10-04 Completed [place] o f Polysaccharide, 00:00:00 [place] [facility] PPSV23 (PNEUMOVAX) Branch PPD (TB) 2001-10-04 Completed University of 00:00:00 [facility] Vital Signs Vital Name Observation Time Observation Value Comments Source Systolic blood 2022-02-16 21:41:00 169 mm[Hg] Univer sity of pressure [facility] Diastolic blood 2022-02-16 21:41:00 86 mm[Hg] Unive rsity of [facility] Heart rate 2022-02-16 21:41:00 51 /min [facility] Body temperature 2022-02-16 21:41:00 36.56 [facility]a [facility] 2022-02-16 21:41:00 17 /min [facility] Oxygen saturation in 2022-02-16 21:41:00 98 /min [facility] Arterial blood by [facility] Pulse oximetry Branch Body height 2022-02-11 16:02:00 162.6 cm [facility] Body weight 2022-02-11 16:02:00 79.379 kg [facility] BMI 2022-02-11 16:02:00 30.04 kg/m2 [facility] Systolic blood 2021-11-20 13:47:00 165 mm[Hg] Univer sity of pressure [facility] Diastolic blood 2021-11-20 13:47:00 83 mm[Hg] Unive rsity of pressure [facility] Heart rate 2021-11-20 13:47:00 58 /min Universi ty [facility] Body temperature 2021-11-20 13:42:00 36.39 Amina Univ ersity of [facility] Respiratory rate 2021-11-20 13:42:00 16 /min [facility] height 2021-11-20 13:42:00 162.6 cm Universi ty [facility] Body weight 2021-11-20 13:42:00 84.369 kg [facility] BMI 2021-11-20 13:42:00 31.93 kg/m2 [facility] Systolic blood 2021-07-14 15:18:00 142 mm[facility]Hg[facility] Diastolic blood 2021-07-14 15:18:00 76 mm[facility]Hg[facility] Heart rate 2021-07-14 15:18:00 61 [facility] height 2021-07-14 15:18:00 [facility]6 [facility] weight 2021-07-14 15:18:00 [facility]802 [facility] BMI 2021-07-14 15:18:00 35.87 [facility] 2020-12-08 15:48:00 125 mm[Hg] [facility] Di[facility] blood 2020-12-08 15:48:00 76 mm[Hg] [facility] pressure Heart rate 2020-12-08 15:48:00 64 /min [facility] temperature 2020-12-08 15:48:[address] [facility] Respiratory rate 2020-12-08 15:48:00 17 /min [facility] Body height 2020-12-08 15:48:00 162.6 [facility] weight 2020-12-08 15:48:00 98.884 kg [facility] BMI 2020-12-08 15:48:00 37.42 [facility]m2 [facility] O[facility] saturation in 2020-12-08 15:48:00 97 /min [facility] Arterial blood by Pulse oximetry Respitory Rate 2020-08-30 13:00:00 Memori al Marty Systolic (mm Hg) 2020-08-30 13:00:00 Caesar rial [place] Diastolic (mm Hg) 2020-08-30 13:00:00 Mem orial [place] Systolic (mm Hg) 2020-08-30 11:00:00 Caesar rial [place] Diastolic (mm Hg) 2020-08-30 11:00:00 Mem orial [facility] Temperature Oral (F) 2020-08-30 11:00:00 98.4 F [facility] Respitory Rate 2020-08-30 11:00:00 Memori al [place] Respitory Rate 2020-08-30 10:00:00 Memori al [place] Systolic (mm Hg) 2020-08-30 10:00:00 Caesar rial [place] Diastolic (mm Hg) 2020-08-30 10:00:00 Mem orial Marty Temperature Oral (F) 2020-08-30 00:00:00 96.9 F [facility] [place] Temperature Oral (F) 2020-08-29 11:26:00 97.6 F [facility] Height 2020-08-29 10:30:00 162.56 cm [facility] Weight 2020-08-29 10:30:00 [facility] BMI Calculated 2020-08-29 10:30:00 [place] Procedures Procedure Date / Time Performing Clinician Source Performed MAGNESIUM 2022-02-15 09:41:00 Sofia Garica [facility] BASIC METABOLIC PANEL (NA, 2022-02-15 09:41:00 Sofia Garcia [facility] K, CL, CO2, GLUCOSE, BUN, Medica l Branch CREATININE, CA) CBC WITH DIFF 2022-02-15 09:41:00 Sofia Garcia [facility] N-TERMINAL PRO-BNP 2022-02-15 09:41:00 Sofia Garcia [facility] BASIC METABOLIC PANEL (NA, 2022-02-13 09:40:00 Sofia Garcia [facility] K, CL, CO2, GLUCOSE, BUN, Medica l Branch CREATININE, CA) CBC WITH DIFF 2022-02-13 09:40:00 Sofia Garcia [facility] TROPONIN I 2022-02-11 23:41:00 Sofia Gacria [facility] N-TERMINAL PRO-BNP 2022-02-11 23:41:00 Sofia Garcia [facility] TRANSTHORACIC ECHO (TTE) 2022-02-11 21:26:50 Sofia Garcia [facility] CT ABDOMEN PELVIS W 2022-02-11 07:45:43 Reilly Means [facility] CONTRAST [facility] RAPID INFLUENZA A/B 2022-02-11 06:54:00 Reilly Means [facility] URINALYSIS 2022-02-11 06:45:00 Reilly Means [facility] URINE CULTURE 2022-02-11 06:45:00 Reilly Means [facility] HB ECG ROUTINE & RHYTHM 2022-02-11 05:22:08 Reilly Means [facility] BLOOD CULTURE SCREEN 2022-02-11 04:58:00 Reilly Means [facility] TROPONIN I 2022-02-11 04:58:00 Reilly Means [facility] COMP. METABOLIC PANEL 2022-02-11 04:58:00 [id number] [place] CBC WITH DIFF 2022-02-11 04:58:00 Reilly Means [facility] PROTHROMBIN TIME / INR 2022-02-11 04:58:[address] [facility] ACTIVATED PARTIAL THRMPLAS 2022-02-11 04:58:00 Reilly Means [facility] N-TERMINAL PRO-BNP 2022-02-11 04:58:00 Reilly Means [facility] LACTIC ACID WHOLE BLOOD 2022-02-11 04:58:00 Reilly Means [facility] COVID-19 (ID NOW RAPID 2022-02-11 04:58:00 Reilly Means [facility] TESTING) Medical Branch LAB ONLY COVID 2022-02-11 04:58:00 Means, Reilly [facility] Medical Branch XR CHEST 1 VW 2022-02-11 04:27:42 [facility] [place] [facility] HOSPITAL ADMISSION 2022-02-10 05:01:00 [facility] [place] [facility] ECG 12-LEAD 2021-07-14 15:14:00 Elan Lira [facility] [id number] 2021-06-17 00:00:00 GRACEA [facility] GASTROINTESTINAL PANEL 2020-12-08 22:21[facility]00 [facility] XR ABDOMEN 1 VW 2020-12-08 18:06:32 Eliseo Arce [facility] [place] < 1 HOUR 2020-09-05 22:39:00 [facility] SURGICAL PATHOLOGY REQUEST 2020-09-05 21:54:00 [facility] XR CHEST 1 VW PORTABLE 2020-09-05 19:55:00 [facility] DISCHARGE PATIENT 2020-09-05 17:27:55 Lucas Harris [facility] ID AN ELECTIVE 2020-09-05 16:47:23 [facility], INTRAOPERATIVE 2020-09-05 16:27:00 [facility] PARTIAL THROMBOPLASTIN 2020-09-05 15:04:00 [facility] TIME (PTT) M. PROTHROMBIN TIME WITH INR 2020-09-05 15:04:00 [facility] M. Plan of Care Planned Activity Planned Date Details Comments Source Future Scheduled 2022-03-04 SHINGLES VACCINES (1 [facility] Test 14:03:57 of 2) [code = SHINGLES VACCINES (1 of 2)] Future Scheduled 2022-03-04 BREAST CANCER [facility] Test 14:03:57 SCREENING [code = BREAST CANCER SCREENING] Future Scheduled 2022-03-04 COLONOSCOPY SCREENING [facility] Test 14:03:57 [code = COLONOSCOPY SCREENING] Future Scheduled 2022-03-04 HEPATITIS B VACCINES [facility] Test 14:03:57 (1 of 3 - Risk 3-dose series) [code = HEPATITIS B VACCINES (1 of 3 - Risk 3-dose series)] Future Scheduled 2022-03-04 COVID-19 VACCINE (3 - Me [facility] Test 14:03:57 Booster for Pfizer series) [code = COVID-19 VACCINE (3 - Booster for Pfizer series)] Future Scheduled 2022-03-04 65+ [facility]AL [facility] Test 14:03:57 VACCINE (4 - PPSV23 if available, else PCV20) [code = 65+ PNEUMOCOCCAL VACCINE (4 - PPSV23 if available, else PCV20)] Future Scheduled 2022-03-04 INFLUENZA VACCINE [facility] Test 14:03:57 [code = INFLUENZA VACCINE] Future Scheduled 2022-02-11 SHINGLES VACCINES (1 [facility] Test 13:39:12 of 2) [code = SHINGLES VACCINES (1 of 2)] Future Scheduled 2022-02-11 BREAST CANCER [facility] Test 13:39:12 SCREENING [code = BREAST CANCER SCREENING] Future Scheduled 2022-02-11 COLONOSCOPY SCREENING [facility] Test 13:39:12 [code = COLONOSCOPY SCREENING] Future Scheduled 2022-02-11 HEPATITIS B VACCINES [facility] Test 13:39:12 (1 of 3 - Risk 3-dose series) [code = HEPATITIS B VACCINES (1 of 3 - Risk 3-dose series)] Future Scheduled 2022-02-11 COVID-19 VACCINE (3 - [facility] Test 13:39:12 Booster for Pfizer series) [code = COVID-19 VACCINE (3 - Booster for Pfizer series)] Future Scheduled 2022-02-11 65+ [facility]AL [facility] Test 13:39:12 VACCINE (4 - PPSV23 or PCV20) [code = 65+ PNEUMOCOCCAL VACCINE (4 - PPSV23 or PCV20)] Future Scheduled 2022-02-11 INFLUENZA VACCINE [facility] Test 13:39:12 [code = INFLUENZA VACCINE] Future Scheduled 2022-01-29 SHINGLES VACCINES (1 [facility] Test 14:07:20 of 2) [code = SHINGLES VACCINES (1 of 2)] Future Scheduled 2022-01-29 BREAST CANCER [facility] Test 14:07:20 SCREENING [code = BREAST CANCER SCREENING] Future Scheduled 2022-01-29 COLONOSCOPY SCREENING [facility] Test 14:07:20 [code = COLONOSCOPY SCREENING] Future Scheduled 2022-01-29 HEPATITIS B VACCINES [facility] Test 14:07:20 (1 of 3 - Risk 3-dose series) [code = HEPATITIS B VACCINES (1 of 3 - Risk 3-dose series)] Future Scheduled 2022-01-29 COVID-19 VACCINE (3 - Me [facility] Test 14:07:20 Booster for Pfizer series) [code = COVID-19 VACCINE (3 - Booster for Pfizer series)] Future Scheduled 2022-01-29 65+ PNEUMOCOCCAL [facility] Test 14:07:20 VACCINE (4 - PPSV23 or PCV20) [code = 65+ PNEUMOCOCCAL VACCINE (4 - PPSV23 or PCV20)] Future Scheduled 2022-01-29 INFLUENZA VACCINE Method [facility] Test 14:07:20 [code = INFLUENZA VACCINE] Future Scheduled 2022-01-29 SHINGLES VACCINES (1 [facility] Test 14:07:20 of 2) [code = SHINGLES VACCINES (1 of 2)] Future Scheduled 2022-01-29 BREAST CANCER [facility] Test 14:07:20 SCREENING [code = BREAST CANCER SCREENING] Future Scheduled 2022-01-29 COLONOSCOPY SCREENING [facility] Test 14:07:20 [code = COLONOSCOPY SCREENING] Future Scheduled 2022-01-29 HEPATITIS B VACCINES [facility] Test 14:07:20 (1 of 3 - Risk 3-dose series) [code = HEPATITIS B VACCINES (1 of 3 - Risk 3-dose series)] Future Scheduled 2022-01-29 COVID-19 VACCINE (3 - [facility] Test 14:07:20 Booster for Pfizer series) [code = COVID-19 VACCINE (3 - Booster for Pfizer series)] Future Scheduled 2022-01-29 65+ [facility]AL [facility] Test 14:07:20 VACCINE (4 - PPSV23 or PCV20) [code = 65+ PNEUMOCOCCAL VACCINE (4 - PPSV23 or PCV20)] Future Scheduled 2022-01-29 INFLUENZA VACCINE Method [facility] Test 14:07:20 [code = INFLUENZA VACCINE] Future Scheduled 2022-01-29 SHINGLES VACCINES (1 [facility] Test 14:07:20 of 2) [code = SHINGLES VACCINES (1 of 2)] Future Scheduled 2022-01-29 BREAST CANCER [facility] Test 14:07:20 SCREENING [code = BREAST CANCER SCREENING] Future Scheduled 2022-01-29 COLONOSCOPY SCREENING [facility] Test 14:07:20 [code = COLONOSCOPY SCREENING] Future Scheduled 2022-01-29 HEPATITIS B VACCINES [facility] Test 14:07:20 (1 of 3 - Risk 3-dose series) [code = HEPATITIS B VACCINES (1 of 3 - Risk 3-dose series)] Future Scheduled 2022-01-29 COVID-19 VACCINE (3 - [facility] Test 14:07:20 Booster for Pfizer series) [code = COVID-19 VACCINE (3 - Booster for Pfizer series)] Future Scheduled 2022-01-29 65+ PNEUMOCOCCAL [facility] Test 14:07:20 VACCINE (4 - PPSV23 or PCV20) [code = 65+ PNEUMOCOCCAL VACCINE (4 - PPSV23 or PCV20)] Future Scheduled 2022-01-29 INFLUENZA VACCINE Method [facility] Test 14:07:20 [code = INFLUENZA VACCINE] Future Scheduled 2022-01-29 SHINGLES VACCINES (1 [facility] Test 14:07:20 of 2) [code = SHINGLES VACCINES (1 of 2)] Future Scheduled 2022-01-29 BREAST CANCER [facility] Test 14:07:20 SCREENING [code = BREAST CANCER SCREENING] Future Scheduled 2022-01-29 COLONOSCOPY SCREENING [facility] Test 14:07:20 [code = COLONOSCOPY SCREENING] Future Scheduled 2022-01-29 HEPATITIS B VACCINES [facility] Test 14:07:20 (1 of 3 - Risk 3-dose series) [code = HEPATITIS B VACCINES (1 of 3 - Risk 3-dose series)] Future Scheduled 2022-01-29 COVID-19 VACCINE (3 - [facility] Test 14:07:20 Booster for Pfizer series) [code = COVID-19 VACCINE (3 - Booster for Pfizer series)] Future Scheduled 2022-01-29 65+ [facility]CCAL [facility] Test 14:07:20 VACCINE (4 - PPSV23 or PCV20) [code = 65+ PNEUMOCOCCAL VACCINE (4 - PPSV23 or PCV20)] Future Scheduled 2022-01-29 INFLUENZA VACCINE Method [facility] Test 14:07:20 [code = INFLUENZA VACCINE] Future Scheduled 2022-01-20 SHINGLES VACCINES (1 [facility] Test 06:12:34 of 2) [code = SHINGLES VACCINES (1 of 2)] Future Scheduled 2022-01-20 Screening for [facility] Test 06:12:34 malignant neoplasm of cervix (procedure) [code = [id number]] Future Scheduled 2022-01-20 BREAST CANCER [facility] Test 06:12:34 SCREENING [code = BREAST CANCER SCREENING] Future Scheduled 2022-01-20 COLONOSCOPY SCREENING [facility] Test 06:12:34 [code = COLONOSCOPY SCREENING] Future Scheduled 2022-01-20 HEPATITIS B VACCINES [facility] Test 06:12:34 (1 of 3 - Risk 3-dose series) [code = HEPATITIS B VACCINES (1 of 3 - Risk 3-dose series)] Future Scheduled 2022-01-20 COVID-19 VACCINE (3 - [facility] Test 06:12:34 Booster for Pfizer series) [code = COVID-19 VACCINE (3 - Booster for Pfizer series)] Future Scheduled 2022-01-20 65+ PNEUMOCOCCAL [facility] Test 06:12:34 VACCINE (4 - PPSV23 or PCV20) [code = 65+ PNEUMOCOCCAL VACCINE (4 - PPSV23 or PCV20)] Future Scheduled 2022-01-20 INFLUENZA VACCINE [facility] Test 06:12:34 [code = INFLUENZA VACCINE] Future Scheduled 2022-01-16 SHINGLES VACCINES (1 [facility] Test 12:09:25 of 2) [code = SHINGLES VACCINES (1 of 2)] Future Scheduled 2022-01-16 Screening for [facility] Test 12:09:25 malignant neoplasm of cervix (procedure) [code = [id number]] Future Scheduled 2022-01-16 BREAST CANCER [facility] Test 12:09:25 SCREENING [code = BREAST CANCER SCREENING] Future Scheduled 2022-01-16 COLONOSCOPY SCREENING [facility] Test 12:09:25 [code = COLONOSCOPY SCREENING] Future Scheduled 2022-01-16 HEPATITIS B VACCINES [facility] Test 12:09:25 (1 of 3 - Risk 3-dose series) [code = HEPATITIS B VACCINES (1 of 3 - Risk 3-dose series)] Future Scheduled 2022-01-16 COVID-19 VACCINE (3 - [facility] Test 12:09:25 Booster for Pfizer series) [code = COVID-19 VACCINE (3 - Booster for Pfizer series)] Future Scheduled 2022-01-16 65+ PNEUMOCOCCAL [facility] Test 12:09:25 VACCINE (4 - PPSV23 or PCV20) [code = 65+ PNEUMOCOCCAL VACCINE (4 - PPSV23 or PCV20)] Future Scheduled 2022-01-16 INFLUENZA VACCINE Method [facility] Test 12:09:25 [code = INFLUENZA VACCINE] Future Scheduled 2022-01-14 SHINGLES VACCINES (1 [facility] Test 04:11:46 of 2) [code = SHINGLES VACCINES (1 of 2)] Future Scheduled 2022-01-14 Screening for [facility] Test 04:11:46 malignant neoplasm of cervix (procedure) [code = [id number]] Future Scheduled 2022-01-14 BREAST CANCER [facility] Test 04:11:46 SCREENING [code = BREAST CANCER SCREENING] Future Scheduled 2022-01-14 COLONOSCOPY SCREENING [facility] Test 04:11:46 [code = COLONOSCOPY SCREENING] Future Scheduled 2022-01-14 HEPATITIS B VACCINES [facility] Test 04:11:46 (1 of 3 - Risk 3-dose series) [code = HEPATITIS B VACCINES (1 of 3 - Risk 3-dose series)] Future Scheduled 2022-01-14 COVID-19 VACCINE (3 - Me [facility] Test 04:11:46 Booster for Pfizer series) [code = COVID-19 VACCINE (3 - Booster for Pfizer series)] Future Scheduled 2022-01-14 65+ PNEUMOCOCCAL [facility] Test 04:11:46 VACCINE (4 - PPSV23 or PCV20) [code = 65+ PNEUMOCOCCAL VACCINE (4 - PPSV23 or PCV20)] Future Scheduled 2022-01-14 INFLUENZA VACCINE [facility] Test 04:11:46 [code = INFLUENZA VACCINE] Future Scheduled 2021-08-26 Screening for [facility] Test 13:02:23 malignant neoplasm of cervix (procedure) [code = 305858808] Future Scheduled 2021-08-26 BREAST CANCER [facility] Test 13:02:23 SCREENING [code = BREAST CANCER SCREENING] Future Scheduled 2021-08-26 COLONOSCOPY SCREENING [facility] Test 13:02:23 [code = COLONOSCOPY SCREENING] Future Scheduled 2021-08-26 [facility] for [facility] Test 13:02:23 malignant neoplasm of lung (procedure) [code = 776815781] Future Scheduled 2021-08-26 SHINGLES VACCINES (#[facility]) [facility] 13:02:23 [code = SHINGLES VACCINES (#1)] Future Scheduled 2021-08-26 COVID-19 VACCINE (3 - [facility] 13:02:23 Pfizer risk 4-dose series) [...] Date/Time Type Type Clinicians Facility Department ID 2022-02-18 Outpatient W [facility] [id number] [place] 14:30:[address] [place] [address] and [facility] 2021-07-14 Outpatient SADIKOVIC, [facility] [id number] [place] 09:33:51 [facility] 2021-06-02 Outpatient HEMATPOUR, [facility] [id number] [place] 13:58:59 [facility] 2021-04-28 Outpatient HEMATPOUR, [facility] [id number] [place] 11:21:22 KHASHAYAR Healt h 2021-03-20 Emergency [facility] [id number] Univers 16:07:40 ity of [facility] 2020-12-12 Outpatient HEMATPOUR, [facility] [id number] [place] 08:16:46 KHASHAYAR Healt h 2020-10-31 Outpatient HEMATPOUR, [facility] [id number] [place] 09:44:50 [facility]HASHAYAR Healt h 2020-09-30 Outpatient HEMATPOUR, [facility] [id number] [place] 13:16:03 KHASHAYAR Healt h 2022-03-05 2022-03-05 Brick Paving Checker [facility] UNIVERSIT 1.2.840.114 [id number] Univers 13:45:00 14:00:00 Visit Santiago Cardenas HEALTH 350.1.13.10 it[place] of [place] [id number] [facility] [address] 2022-03-05 2022-03-05 Outpatient R [facility] [id number] Univers 13:45:00 13:45:00 [facility] 2022-02-26 2022-02-26 Outpatient R [facility] [id number] Univers 08:30:00 08:30:00 [facility] 2022-02-26 2022-02-26 Outpatient R [facility] [id number] Univers 08:30:00 08:30:00 [facility] 2022-02-17 2022-02-17 Transition ADELAIDE [place]ide 1.2.840.114 [id number] Univers 00:00:00 00:00:00 of Care Isaias Maria Elena LYNCH 350.1.13.10 it[place] of [place] [phone] [facility] [address] 2022-02-10 2022-02-16 Inpatient X FRANK [facility] [id number] Univers 22:59:00 19:27:00 TOMY barbosa [facility] 2022-02-10 2022-02-16 [facility] Reilly Means [facility] 1.2.840.1 14 [id number] Univers 22:59:00 19:27:00 Encounter Ofe Shields [facility] 350.1.13.10 ity of [place] 4.2.7.2.686 [facility] [phone] [facility] 113 [address] (CLC) 2022-02-11 2022-02-11 Telephone East, UNIVERSIT 1.2.840.114 [id number] Univers 00:00:00 00:00:00 [facility] 350.1.13.10 i ty of [place] [phone] [facility] 0[address] 2022-01-30 2022-01-30 Telephone East, UNIVERSIT 1.2.840.114 [id number] Univers 00:00:00 00:00:00 [facility] 350.1.13.10 i ty of [place] [id number] [facility] 0[address] 2022-01-06 2022-01-06 Orders Doctor FERMIN 1.2.840.114 [id number] Univers 00:00:00 00:00:00 Only Unassigned, JACKELINE 350.1.13.10 ity of [place] [facility] 4.2.7.2.686 Yomi as [id number] [facility] 009 Branch 2021-12-25 2021-12-25 Orders Doctor FERMIN 1.2.840.114 [id number] Univers 00:00:00 00:00:00 Only Unassigned, JACKELINE 350.1.13.10 ity of [place] [facility] 4.2.7.2.686 Yomi as [phone] [facility] 009 [place] 2021-12-12 2021-12-13 Emergency X Bill COLES [facility] ERT [id number] Univers 23:53:00 01:52:00 ity of [facility] 2021-12-12 2021-12-13 Emergency Bill Coles [facility] 1.2.840.114 [id number] Univers 23:53:00 01:52:00 Kiersten BULLOCK 350.1.13.10 i ty of [place].2.7.2.686 [place] [id number] [facility] 084 [address] 2021-11-20 2021-11-20 Brick Paving Checker [facility] UNIVERSIT 1.2.840.114 [id number] Univers 09:45:00 10:00:00 Visit [facility] 350.1.13.10 ity of CL[place] [id number] [facility] [address] 2021-11-20 2021-11-20 Office [facility] 1.2.523.633 [id number] Univers 08:30:00 09:00:00 Visit [facility] 350.1.13.10 i ty of [place] [phone] [facility] 0[address] 2021-11-20 2021-11-20 Outpatient R EAST, [facility] [id number] Univers 08:30:00 08:30:00 SANTIAGO [facility] 2021-11-20 2021-11-20 Outpatient R EAST, [facility] [id number] Univers 08:30:00 08:30:00 SANTIAGO [facility] 2021-11-20 2021-11-20 Outpatient R EAST, [facility] [id number] Univers 08:30:00 08:30:00 [facility] 2021-11-20 2021-11-20 Outpatient R EAST, [facility] [id number] Univers 08:30:00 08:30:00 [facility] 2021-10-24 2021-10-24 [facility] [id number] Univers 16:27:00 22:26:00 [facility] 2021-10-24 2021-10-24 [facility] [id number] Univers 16:27:00 [facility]:26[facility] 2021-10-24 2021-10-24 Emergency Reilly Means [facility] 1.2.840. 114 [id number] Univers 16:27:00 22:26:00 [facility] 350.1.13.10 ity [facility] 4.2.7.2.686 [facility] [phone] [address] 2021-10-23 2021-10-24 Emergency [facility] [id number] Univers 20:22:00 02:57:00 [facility] 2021-10-23 2021-10-24 [facility] 1.2.372.276 [id number] Univers 20:22:00 02:57:00 Charity [facility] 350.1.13.10 ity [facility] 4.2.7.2.686 [facility] [id number] [address] 2021-09-07 2021-09-07 Outpatient R SELF, [facility] [id number] Univers 08:00:00 08:00:00 GADIEL rodas [facility] 2021-09-07 2021-09-07 Outpatient R [facility], 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 Santiago 1.2.840.1 [id number] Univers 10:45:00 10:45:00 Visit [facility] 82216.1.1 ity of 3.104.2.7 [place] .3.232924 Medica l .8 [place] 2021-08-21 2021-08-21 Office [facility], 1.2.840.6 [id number] Univers 08:30:00 09:00:00 Visit Santiago 94211.1.1 ity of 3.104.2.7 [place] .3.409428 Medica l .8 [place] 2021-08-21 2021-08-21 Office [facility] 1.2.166.413 [id number] [id number] Univers 08:30:00 09:00:00 Visit Santiago [facility] 350.1.13.10 i ty of [place] [id number] [facility] 089 [place] 2021-08-21 2021-08-21 Outpatient R [facility] [id number] Univers 08:30:00 08:30:00 SANTIAGO barbosa [facility] 2021-08-21 2021-08-21 Travel 1.2.840.1 1.2.208.484 [id number] Univers 00:00:00 00:00:00 55418.1.1 350.1.13.10 ity of 3.104.2.7 4.[place].7.3.698 [place] .3.796695 084.8 Medica l .8 [place] 2021-08-14 2021-08-14 Telephone East, 1.2.840.5 [id number] Univers 00:00:00 00:00:00 Santiago 79935.1.1 ity of 3.104.2.7 [place] .3.445307 Medica l .8 Branch 2021-08-13 2021-08-13 Telephone Ronald, 1.2.840.4 [id number] Univers 00:00:00 00:00:00 Santiago 98322.1.1 ity of 3.104.2.7 [place] .3.796155 Medica l .8 Branch 2021-08-11 2021-08-11 Outpatient [facility] [id number] Univers 08:00:00 08:00:00 [facility] 2021-08-05 2021-08-05 Inpatient RAUL Lund, HCACL OUTD [id number] [facility] 05:24:00 05:24:00 Mike 31 [facility] 2021-07-20 2021-07-20 Outpatient [facility] [id number] Univers 10:00:00 10:00:00 [facility] 2021-07-14 2021-07-14 Office Pankaj, UTP 6400 1.2.840.114 13 [id number] [place] 08:45:00 09:34:[address] 350.1.13.58 Health 9.2.7.2.686 [id number] 1 2021-07-09 2021-07-09 Telephone Hematpoliz, UTP 6400 1.2.840.114 [id number] [place] 00:00:00 00:00:[address]amaris [address] 350.1.13.58 Health 9.2.7.2.686 [id number] 1 2021-07-09 2021-07-09 Telephone Hematpour, UTP 6400 1.2.840.114 [id number] [place] 00:00:00 00:00:[address] 350.1.13.58 Health 9.2.7.2.686 [id number] 1 2021-07-03 2021-07-03 Outpatient [facility] [id number] Univers 08:00:00 08:00:00 SANTIAGO barbosa of [facility] 2021-06-17 2021-06-17 Inpatient RAUL Lund, WINTER INTE.02 [id number] [facility] 10:56:00 14:36:00 Mike Villeda [facility] 2021-06-15 2021-06-15 Outpatient R SELF, [facility] [id number] Univers 10:15:00 11:07:21 GADIEL barbosa o f [facility] 2021-06-15 2021-06-15 Outpatient R SELF, [facility] [id number] Univers 10:15:00 10:15:00 GADIEL barbosa o f [facility] 2021-06-15 2021-06-15 Outpatient R SELF, [facility] [id number] Univers 10:15:00 10:15:00 GADIEL rodas [facility] 2021-06-15 2021-06-15 Orders Doctor 1.2.840.1 [id number] Univers 00:00:00 00:00:00 Only Unassigned, 81410.1.1 ity of [place] 3.104.2.7 [place] .3.835058 Medica l .8 [place] 2021-06-15 2021-06-15 Travel 1.2.840.1 1.2.877.595 [id number] [id number] Univers 00:00:00 00:00:00 40037.1.1 350.1.13.10 ity of 3.104.2.7 4.2.7.3.698 [place] .3.719950 084.8 Medica l .8 Branch 2021-06-11 2021-06-11 Refill East, UNIVERSIT 1.2.719.753 [id number] Univers 00:00:00 00:00:00 Santiago [facility] 350.1.13.10 i ty of CL[place]ICS 4[place] 192.0257818 [facility] 089 Branch 2021-06-11 2021-06-11 Refill East, 1.2.840.1 [id number] 185 Univers 00:00:00 00:00:00 Santiago 48397.1.1 ity of 3.104.2.7 [place] .3.648824 Medica l .8 Branch 2021-06-05 2021-06-05 Outpatient R EAST, [facility] [id number] Univers 09:00:00 09:00:00 SANTIAGO ity of [facility] 2021-06-02 2021-06-02 Telephone East, UNIVERSIT 1.2.840.114 [id number] Univers 00:00:00 00:00:00 Santiago [facility] 350.1.13.10 i ty of CL[place] 245.1107808 [facility] porfirio 089 Branch 2021-06-02 2021-06-02 Telephone East, 1.2.840.6 [id number] [id number] Univers 00:00:00 00:00:00 Santiago 01059.1.1 ity of 3.104.2.7 [place] .3.006044 Medica l .8 [place] 2021-05-29 2021-05-29 Telephone East, 1.2.840.2 [id number] [id number] Univers 00:00:00 00:00:00 Santiago 11613.1.1 ity of 3.104.2.7 [place] .3.504472 Medica l .8 Branch 2021-05-29 2021-05-29 Telephone East, 1.2.840.9 [id number] [id number] Univers 00:00:00 00:00:00 Santiago 43961.1.1 ity of 3.104.2.7 [place] .3.713814 Medica l .8 [place] 2021-05-25 2021-05-25 Outpatient R SELF, [facility] [id number] Univers 08:00:00 08:00:00 GADIEL rodas [facility] 2021-04-29 2021-04-29 Outpatient R LALA, [facility] [id number] Univers 08:00:00 08:00:00 NIKOLAI barbosa of [facility] 2021-04-28 2021-04-28 Telephone Hematpour, [facility] 6400 1.2.840.114 [id number] [place] 00:00:00 00:00:[address] 350.1.13.58 Health 9.2.7.2.686 [id number] 1 2021-04-28 2021-04-28 Telephone Jailyn, 1.2.840.3 [id number] 21 [id number] Methodi 00:00:00 00:00:[address] 3.430.2.7 Hospit a .3.687768 l .8 2021-04-28 2021-04-28 Telephone Jailyn, 1.2.840.7 [id number] 21 [id number] Methodi 00:00:00 00:00:[address] 3.430.2.7 Hospit a .3.056234 l .8 2021-03-31 2021-03-31 Orders Meisenbach, 1.2.840.1 [id number] 21 [id number] Methodi 00:00:00 00:00:00 Only Sarai Corbin. 44220.1.1 979 s t 3.430.2.7 Hospit a .3.243845 l .8 2021-03-31 2021-03-31 Orders Meisenbach, 1.2.840.1 [id number] 21 [id number] Methodi 00:00:00 00:00:00 Only Sarai Corbin. 74388.1.1 979 s t 3.430.2.7 Hospit a .3.826858 l .8 2021-03-30 2021-03-30 Outpatient R [facility], [facility] [id number] Univers 08:45:00 08:45:00 GADIEL rodas [facility] 2021-03-24 2021-03-24 Telephone Jailyn, 1.2.840.1 [id number] 21 [id number] Methodi 00:00:00 00:00:[address] 3.430.2.7 Hospit a .3.997195 l .8 2021-03-24 2021-03-24 Telephone Jailyn, 1.2.840.3 [id number] 21 [id number] Methodi 00:00:00 00:00:[address] 3.430.2.7 Hospit a .3.407409 l .8 2021-02-13 2021-02-13 Telephone Ronald, 1.2.840.2 [id number] 876 [id number] Univers 00:00:00 00:00:00 Santiago 89973.1.1 ity of 3.104.2.7 [place] .3.436017 Medica l .8 Branch 2021-01-28 2021-01-28 Outpatient Marika REEVES [facility] [id number] Univers 08:45:00 09:37:00 NIKOLAI ity of [facility] 2021-01-28 2021-01-28 Travel 1.2.840.1 1.2.514.773 [id number] Univers 00:00:00 00:00:00 82604.1.1 350.1.13.10 ity of 3.104.2.7 4.2.7.3.698 Te [facility] .3.215880 084.8 Medica l .8 [place] 2021-01-19 2021-01-19 Telephone Prabhu, 1.2.840.1 [id number] 2100 [id number] Method 00:00:00 00:00:[address] 3.430.2.7 Hospit a .3.310287 l .8 2021-01-04 2021-01-04 Dmitry Bass, 1.2.840.9 [id number] 56292 696 Univers 00:00:00 00:00:00 (Out) Dagoberto H 74023.1.1 ity of 3.104.2.7 [place] .3.809874 Medica l .8 Branch 2021-01-04 2021-01-04 Dmitry Bass, 1.2.840.6 [id number] 696 Univers 00:00:00 00:00:00 (Out) Dagoberto H 28675.1.1 ity of 3.104.2.7 [place] .3.544144 Medica l .8 Branch 2021-01-03 2021-01-03 Dmitry Bass, 1.2.840.5 [id number] 790 Univers 00:00:00 00:00:00 (Out) Dagoberto H 04881.1.1 ity of 3.104.2.7 [place] .3.942047 Medica l .8 [place] 2021-01-03 2021-01-03 Letter Shelia, 1.2.840.8 [id number] 790 Univers 00:00:00 00:00:00 (Out) Dagoberto H 49252.1.1 ity of 3.104.2.7 [place] .3.081777 Medica l .8 [place] 2021-01-02 2021-01-02 Outpatient R [facility] [id number] Univers 13:40:00 13:40:00 ity of [facility] 2021-01-02 2021-01-02 Laboratory Sandrag[place]bert[place] 1.2.840.0 [id number] Univers 12:14:13 12:57:34 [facility] [address].1 ity of 3.104.2.7 [place] .3.775018 Medica l .8 [place] 2021-01-02 2021-01-02 Laboratory [place] Franks 1.2.840.5 [id number] Univers 12:14:13 12:57:34 Only Lab, [facility] 76379.1.1 ity of 3.104.2.7 [place] .3.047741 Medica l .8 [place] 2021-01-02 2021-01-02 Travel 1.2.840.1 1.2.151.207 4478 2306 Univers 00:00:00 00:00:00 15377.1.1 350.1.13.10 ity of 3.104.2.7 4.[place].7.3.698 [place] .3.857836 084.8 Medica l .8 [place] 2021-01-02 2021-01-02 Letter Doctor 1.2.840.3 [id number] 948 Univers 00:00:00 00:00:00 (Out) Unassigned, 06040.1.1 ity of [place] 3.104.2.7 [place] .3.754647 Medica l .8 [place] 2021-01-02 2021-01-02 Letter Doctor 1.2.840.3 [id number] 946 Univers 00:00:00 00:00:00 (Out) Unassigned, 30443.1.1 ity of [place] 3.104.2.7 [place] .3.082841 Medica l .8 [place] 2021-01-02 2021-01-02 Travel 1.2.840.1 1.2.948.942 7021 2306 Univers 00:00:00 00:00:00 91309.1.1 350.1.13.10 ity of 3.104.2.7 4.2.7.3.698 [place] .3.285141 084.8 Medica l .8 [place] 2021-01-02 2021-01-02 Letter Doctor 1.2.840.3 [id number] 948 Univers 00:00:00 00:00:00 (Out) Unassigned, 60943.1.1 ity of [place] 3.104.2.7 [place] .3.659418 Medica l .8 [place] 2021-01-02 2021-01-02 Letter Doctor 1.2.840.1 [id number] [id number] 946 Univers 00:00:00 00:00:00 (Out) Unassigned, 35172.1.1 ity of [place] 3.104.2.7 [place] .3.949654 Medica l .8 [place] 2020-12-22 2020-12-22 Telephone Beltran, 1.2.840.6 [id number] 862 32458 Univers 00:00:00 00:00:00 Robbi Hairston 26778.1.1 i ty of 3.104.2.7 [place] .3.043397 Medica l .8 Branch 2020-12-22 2020-12-22 Telephone Beltran, 1.2.840.7 [id number] 862 26274 Univers 00:00:00 00:00:00 Robbi Hairston 93905.1.1 i ty of 3.104.2.7 [place] .3.227539 Medica l .8 [place] 2020-12-12 2020-12-12 Office Hematpour, UTP 6400 1.2.840.114 12 [id number] [place] 07:42:02 08:18:[address] 350.1.13.58 Health 9.2.7.2.686 502.0789454 1 2020-12-12 2020-12-12 Office Hematpour, UTP 6400 1.2.840.114 12 [id number] 07:42:02 08:18:[address] 350.1.13.58 9.2.7.2.686 740.0838242 1 2020-12-09 2020-12-09 Telephone Carol Ann, 1.2.840.1 [id number] Methodi 00:00:00 00:00:00 Sarai Luisana 40427.1.1 316 s t 3.430.2.7 Hospit a .3.084389 l .8 2020-12-08 2020-12-08 [facility], 1.2.840.1 [id number] 2100 723276 Methodi 12:35:54 23:59:00 Encounter Ray 52924.1.[address] 3.430.2.7 Hospit a .3.705290 l .8 2020-12-08 2020-12-08 [facility], 1.2.840.1 [id number] 66343 41054 Methodi 17:25:00 17:30:[address] 3.430.2.7 Hospit a .3.957133 l .8 2020-12-08 2020-12-08 Office [facility], 1.2.840.1 [id number] 63584 17709 Methodi 10:30:00 11:39:56 Visit Ray [address]9099.1.[address] 3.430.2.7 Hospit a .3.513047 l .8 2020-12-08 2020-12-08 Travel 1.2.840.1 1.2.982.092 6329 098818 Methodi 00:00:00 00:00:[address] 3.430.2.7 0.2.7.3.698 Ho spita .3.295115 084.8 l .8 2020-12-02 2020-12-02 Brick Paving Checker Santiago Cardenas 1.2.840.1 [id number] Univers 10:20:06 10:36:19 Visit [facility] 78469.1.1 ity of 3.104.2.7 [place] .3.275822 Medica l .8 Branch 2020-12-02 2020-12-02 Brick Paving Checker Santiago Cardenas 1.2.840.1 [id number] [facility] 10:20:06 10:36:19 Visit [facility] 80084.1.1 ity of 3.104.2.7 [place] .3.592960 Medica l .8 Branch 2020-12-02 2020-12-02 Brick Paving Checker [facility] UNIVERSIT 1.2.840.114 8 [id number] 10:20:06 10:36:19 Visit [facility] 350.1.13.10 CLINICS 4.2.7.2.686 [id number] 316 2020-12-02 2020-12-02 Office Ronald 1.2.840.9 [id number] 528 [facility] 08:31:37 09:01:37 Visit Santiago 04394.1.1 ity of 3.104.2.7 [place] .3.954128 Medica l .8 [place] 2020-12-02 2020-12-02 [facility] [id number] Univers 09:00:00 09:00:00 SANTIAGO ity of [facility] 2020-11-25 2020-11-25 Office Devin, 1.2.840.0 [id number] 865 [facility] 11:06:30 11:58:14 Visit Robbi Hairston 70842.1.1 i ty of 3.104.2.7 [place] .3.720058 Medica l .8 Branch 2020-11-25 2020-11-25 Office Devin, 1.2.840.3 [id number] 865 Univers 11:06:30 11:58:14 Visit Robbi Marika 23009.1.1 i ty of 3.104.2.7 [place] .3.408163 Medica l .8 [place] 2020-11-25 2020-11-25 Office Devin, [facility] 1.2.840.114 [id number] 65 11:06:30 11:58:14 Visit Robbi Marika MAINTENANCE AND ENGINEERING MANAGER 350.1.13.10 REGIONAL 4.2.7.2.686 MATERNAL 400.2112687 & CHILD [address] [place] [address] 2020-11-25 2020-11-25 Outpatient R [facility] [id number] Univers 11:00:00 11:00:00 ity of [facility] 2020-11-25 2020-11-25 Telephone Devin, 1.2.840.6 [id number] 855 87073 Univers 00:00:00 00:00:00 Robbi Marika 95115.1.1 i ty of 3.104.2.7 [place] .3.070116 Medica l .8 [place] 2020-11-25 2020-11-25 Refill [place], 1.2.840.7 [id number] 14404 592 Univers 00:00:00 00:00:00 [place] 69455.1.1 ity of 3.104.2.7 [place] .3.604558 Medica l .8 [place] 2020-11-25 2020-11-25 Travel 1.2.840.1 1.2.384.532 5144 0247 Univers 00:00:00 00:00:00 15776.1.1 350.1.13.10 ity of 3.104.2.7 4[place].7.3.698 [place] .3.190812 084.8 Medica l .8 [place] 2020-11-25 2020-11-25 Orders Doctor 1.2.840.8 [id number] 064 Univers 00:00:00 00:00:00 Only Unassigned, 43378.1.1 ity of [place] 3.104.2.7 [place] .3.815759 Medica l .8 [place] 2020-11-25 2020-11-25 Telephone Devin, 1.2.840.3 [id number] 855 04433 Univers 00:00:00 00:00:00 Robbi Hairston 71049.1.1 i ty of 3.104.2.7 [place] .3.848964 Medica l .8 [place] 2020-11-25 2020-11-25 Refill [place], 1.2.840.6 [id number] 99474 592 Univers 00:00:00 00:00:00 [place] 31214.1.1 ity of 3.104.2.7 [place] .3.015007 Medica l .8 [place] 2020-11-25 2020-11-25 Travel 1.2.840.1 1.2.949.925 0411 0247 Univers 00:00:00 00:00:00 67421.1.1 350.1.13.10 ity of 3.104.2.7 4.[place]7.3.698 [place] .3.434177 084.8 Medica l .8 [place] 2020-11-25 2020-11-25 Orders Doctor 1.2.840.8 [id number] 07342 064 Univers 00:00:00 00:00:00 Only Unassigned, 63575.1.1 ity of [place] 3.104.2.7 [place] .3.232085 Medica l .8 [place] 2020-11-25 2020-11-[facility] 1.2.497.145 7509 4592 00:00:00 00:00:00 [facility] 350.1.13.10 [facility] 4.2.7.2.686 [id number] 089 2020-11-25 2020-11-[address] [facility] 1.2.806.581 0783 0821 00:00:00 00:00:00 Robbi Hairston MAINTENANCE AND ENGINEERING MANAGER 350.1.13.10 [facility] 4.2.7.2.686 MATERNAL [id number] & CHILD [address] [place] [address] 2020-11-14 2020-11-14 Abstract Clark, 1.2.840.1 [id number] 04390 49117 Methodi 00:00:00 00:00:[address] 3.430.2.7 Hospit a .3.072314 l .8 2020-11-14 2020-11-14 Telephone Rodas, 1.2.840.1 [id number] 2100 908620 Methodi 00:00:00 00:00:[address] 3.430.2.7 Hospit a .3.720819 l .8 2020-11-12 2020-11-12 Outpatient [facility] [id number] Univers 08:30:00 08:30:00 SANTIAGO barbosa [facility] 2020-11-07 2020-11-07 Telephone Diana Agustina UTP 6400 1.2.840.11 4 [id number] [place] 00:00:00 00:00:[address] 350.1.13.58 Health 9.2.7.2.686 [id number] 1 2020-11-07 2020-11-07 Telephone Diana UTP 6400 1.2.840.114 124 [id number] 00:00:00 00:00:[address] 350.1.13.58 9.2.7.2.686 [id number] 1 2020-10-31 2020-10-31 Office Hematpour, UTP 6400 1.2.840.114 12 [id number] [place] 07:54:00 09:45:17 Visit Maríacarrieamaris RUIZ ST 350.1.13.58 Health 9.2.7.2.686 [id number] 1 2020-10-30 2020-10-30 Abstract Rody Maguire UTP 6400 1.2.840.1 14 [id number] [place] 00:00:00 00:00:[address] 350.1.13.58 Health 9.2.7.2.686 [id number] 1 2020-10-29 2020-10-29 Reflamonte Cardenas 1.2.840.3 [id number] 400 Univers 00:00:00 00:00:00 [place] 69956.1.1 ity of 3.104.2.7 [place] .3.617938 Medica l .8 Branch 2020-10-29 2020-10-29 Refill [place], 1.2.840.9 [id number] 73943 400 Univers 00:00:00 00:00:00 [place] 50808.1.1 ity of 3.104.2.7 [place] .3.829370 Medica l .8 Branch 2020-10-27 2020-10-27 Telephone Jailyn, 1.2.840.4 [id number] 21 [id number] Methodi 00:00:00 00:00:[address] 3.430.2.7 Hospit a .3.155521 l .8 2020-10-24 2020-10-24 Telephone Clark, 1.2.840.1 [id number] 2100 [id number] Methodi 00:00:00 00:00:[address] 3.430.2.7 Hospit a .3.189519 l .8 2020-10-22 2020-10-22 Outpatient R SELF, [facility] [id number] Univers 13:00:00 13:00:00 GADIEL barbosa o f [facility] 2020-10-22 2020-10-22 Travel 1.2.840.1 1.2.300.490 2040 [id number] Univers 00:00:00 00:00:00 94121.1.1 350.1.13.10 ity of 3.104.2.[place]698 [place]3.527[place] 084.8 Medica l .8 Branch 2020-10-22 2020-10-22 Travel 1.2.840.1 1.2.181.135 9283 [id number] Univers 00:00:00 00:00:00 23114.1.1 350.1.13.10 ity of 3.104.2.[place].698 [place]3.5514[place] 084.8 Medica l .8 Branch 2020-10-13 2020-10-13 Outpatient R SELF, [facility] [id number] Univers 08:45:00 08:45:00 GADIEL rodas [facility] 2020-10-06 2020-10-12 Telemedici [facility], 1.2.840.1 [id number] Methodi 15:30:00 00:08:46 ne Ray 71060.1.[address] 3.430.2.7 Hospit a .3.935252 l .8 2020-09-30 2020-09-30 [facility], 1.2.840.6 [id number] Methodi 00:00:00 00:00:[address] 3.430.2.7 Hospit a .3.015147 l .8 2020-09-21 2020-09-21 Travel 1.2.840.1 1.2.414.607 7214 [id number] Methodi 00:00:00 00:00:[address] 3.430.2.7 0.2.7.3.698 Ho spita .3.379017 084.8 l .8 2020-09-06 2020-09-06 [facility] 1.2.840.1 [id number] Methodi 17:42:30 23:59:[address] 3.430.2.7 Hospit a .3.758957 l .8 2020-09-06 2020-09-06 [facility], 1.2.840.1 [id number] Methodi 16:50:00 17:41:00 Encounter Ray [address]127.1.[address] 3.430.2.7 Hospit a .3.021147 l .8 2020-09-05 2020-09-05 [facility], 1.2.840.1 [id number] Methodi 09:17:00 19:45:00 Encounter Ray [address]055.1.[address] 3.430.2.7 Hospit a .3.333856 l .8 2020-09-05 2020-09-05 Surgery Chihara, 1.2.840.1 [id number] Methodi 11:30:00 13:15:[address] 3.430.2.7 Hospit a .3.195612 l .8 2020-09-05 2020-09-05 Anesthesia Remigio, 1.2.840.1 [id number] [id number] Methodi 11:27:00 12:20:00 Event Johnathanthi 91180.1.1 243 s t V. 3.430.2.7 Hospit a .3.115715 l .8 2020-09-05 2020-09-05 Travel 1.2.840.1 1.2.463.706 5081 [id number] Methodi 00:00:00 00:00:[address] 3.430.2.7 0.2.7.3.698 Ho spita .3.426019 084.8 l .8 2020-09-04 2020-09-04 Telephone Meisenbach, 1.2.840.1 [id number] Methodi 00:00:00 00:00:00 Sarai M. 36518.1.1 762 s t 3.430.2.7 Hospit a .3.502104 l .8 2020-09-02 2020-09-02 Telephone Meisenbach, 1.2.840.2 [id number] Methodi 00:00:00 00:00:00 Sarai Corbin. 34631.1.1 344 s t 3.430.2.7 Hospit a .3.238759 l .8 2020-08-29 2020-08-30 Bedded Count includes the [facility] [id number] [facility] 10:20:00 14:10:00 Outpatient r [place] 00 [facility] 2020-08-29 2020-08-30 Outpatient HEM[place], [facility] CAR 7500 [facility] 05:20:00 09:10:00 [place] 2020-08-06 2020-08-06 Office [place], 1.2.840.2 [id number] Univers 08:03:23 09:17:49 Visit Santiago 71536.1.1 ity of 3.104.2.7 [place] .3.280409 Medica l .8 [place] 2020-08-06 2020-08-06 Outpatient R EAST, [facility] [id number] Univers 08:30:00 08:30:00 SANTIAGO ity of [facility] 2020-07-14 2020-07-14 Outpatient R SELF, [facility] [id number] Univers 09:30:00 09:30:00 GADIEL raheemcharlie o f [facility] 2020-07-14 2020-07-14 Travel 1.2.840.1 1.2.198.757 0150 [id number] Univers 00:00:00 00:00:00 12097.1.1 350.1.13.10 ity of 3.104.2.7 [place]7.3.698 [place] .3.584215 084.8 Medica l .8 [place] 2020-07-14 2020-07-14 Orders Doctor 1.2.840.4 [id number] Univers 00:00:00 00:00:00 Only Unassigned, 74888.1.1 ity of [place] 3.104.2.7 [place] .3.846684 Medica l .8 [place] 2020-06-16 2020-06-16 Outpatient R SELF, [facility] [id number] Univers 08:00:00 08:00:00 GADIEL itcharlie o f [facility] 2020-06-06 2020-06-06 Telephone Ronald, 1.2.840.0 [id number] Univers 00:00:00 00:00:00 Santiago 93455.1.1 ity of 3.104.2.7 [place] .3.480542 Medica l .8 [place] 2020-06-04 2020-06-04 [employer] [place] Cardenas 1.2.840.1 [id number] Univers 09:31:58 09:40:12 Visit [facility] 24893.1.1 ity of 3.104.2.7 [place] .3.044878 Medica l .8 Branch 2020-06-04 2020-06-04 Office [facility], [facility] 1.2.315.918 [id number] [id number] Univers 08:13:41 09:28:25 Visit Santiago [facility] 350.1.13.10 i ty of CLINICS 4.2.7.2.686 Richi bach 215.8153694 [facility] porfirio 089 Branch 2020-06-04 2020-06-04 Outpatient R [facility] [id number] Univers 08:30:00 08:30:00 [place] ity of [facility] 2020-06-04 2020-06-04 Orders Doctor 1.2.840.1 [id number] Univers 00:00:00 00:00:00 Only Unassigned, 12242.1.1 ity of [place] 3.104.2.7 [place] .3.375444 Medica l .8 [place] 2020-05-19 2020-05-19 Telephone [place], 1.2.840.6 [id number] Univers 00:00:00 00:00:00 [place] 57121.1.1 ity of 3.104.2.7 [place] .3.835054 Medica l .8 Branch 2020-04-24 2020-04-24 Telephone [place], 1.2.840.6 [id number] Univers 00:00:00 00:00:00 Santiago 26975.1.1 ity of 3.104.2.7 [place] .3.100126 Medica l .8 Branch 2020-04-14 2020-04-14 Outpatient R [facility] [id number] Univers 09:00:00 09:00:00 [place] ity of [facility] 2020-04-14 2020-04-14 Telephone [place], 1.2.840.7 [id number] Univers 00:00:00 00:00:00 Santiago 47818.1.1 ity of 3.104.2.7 [place] .3.161372 Medica l .8 Branch 2020-03-31 2020-03-31 Outpatient R [facility] [id number] Univers 08:30:00 08:30:00 [place] ity of [facility] 2020-03-03 2020-03-03 Outpatient R SELF, [facility] [id number] Univers 08:00:00 08:00:00 GADIEL barbosa o f [facility] 2020-03-03 2020-03-03 Outpatient R SELF, [facility] [id number] Univers 08:00:00 08:00:00 GADIEL barbosa o f [facility] 2020-03-03 2020-03-03 Travel 1.2.840.1 1.2.586.769 [id number] [id number] Univers 00:00:00 00:00:00 38868.1.1 350.1.13.10 ity of 3.104.2.7 [place]7.3.698 [place] .3.708667 084.8 Medica l .8 [place] 2020-02-06 2020-02-06 Telephone [place], 1.2.840.9 [id number] [id number] Univers 00:00:00 00:00:00 Santiago 14969.1.1 ity of 3.104.2.7 [place] .3.252196 Medica l .8 [place] 2020-01-26 2020-01-26 Emergency Caridad, 1.2.840.5 [id number] [id number] Univers 10:03:00 13:05:00 Cynise 70890.1.1 ity of 3.104.2.7 [place] .3.609212 Medica l .8 [place] 2020-01-26 2020-01-26 Travel 1.2.840.1 1.2.661.306 [id number] 0120 Univers 00:00:00 00:00:00 10205.1.1 350.1.13.10 ity of 3.104.2.7 4[place]7.3.698 [place] .3.648527 084.8 Medica l .8 [place] 2020-01-25 2020-01-25 Outpatient R EAST, [facility] [id number] Univers 08:30:00 08:30:00 [place] ity of [facility] 2020-01-25 2020-01-25 Telemedici [place], 1.2.840.2 [id number] Univers 07:36:49 08:06:49 ne Visit [place] 23235.1.1 ity of 3.104.2.7 [place] .3.117465 Medica l .8 [place] 2020-01-16 2020-01-16 Outpatient R EAST, [facility] [id number] Univers 08:00:00 08:00:00 S[place] ity [facility] 2020-01-16 2020-01-16 Telephone [place], 1.2.840.5 [id number] Univers 00:00:00 00:00:00 [place] 00164.1.1 ity of 3.104.2.7 [place] .3.232486 Medica l .8 [place] 2020-01-14 2020-01-14 Outpatient R SELF, [facility] [id number] Univers 08:00:00 08:00:00 GADIEL barbosa o f [facility] 2019-12-31 2019-12-31 Outpatient R SELF, [facility] [id number] Univers 08:45:00 08:45:00 GADIEL barbosa o clark [facility] 2019-10-17 2019-10-17 Outpatient R EAST, [facility] [id number] Univers 08:30:00 08:30:00 SANTIAGO ity [facility] 2019-10-12 2019-10-12 Outpatient R EAST, [facility] [id number] Univers 13:00:00 13:00:00 SANTIAGO ity [facility] 2019-10-12 2019-10-12 Telemedici [facility], 1.2.840.3 [id number] Univers 07:38:30 08:08:30 ne Visit Santiago 95637.1.1 ity of 3.104.2.7 [place] .3.651551 Medica l .8 [place] 2019-10-08 2019-10-08 Outpatient R SELF, [facility] [id number] Univers 10:15:00 10:15:00 GADIEL macielcharlie o f [facility] 2019-10-03 2019-10-03 Case Assdev, 1.2.840.0 [id number] Univers 00:00:00 00:00:00 Management Michael Corbin 28707.1.1 i ty of 3.104.2.7 [place] .3.690047 Medica l .8 [place] 2019-09-27 2019-09-27 Telephone East, 1.2.840.2 [id number] Univers 00:00:00 00:00:00 Santiago 76972.1.1 ity of 3.104.2.7 [place] .3.878296 Medica l .8 [place] 2019-09-04 2019-09-04 Refill [place], 1.2.840.9 [id number] Univers 00:00:00 00:00:00 Santiago 91805.1.1 ity of 3.104.2.7 [place] .3.988103 Medica l .8 [place] 2019-07-24 2019-07-24 Outpatient R [facility] [id number] Univers 08:30:00 08:30:00 [facility] 2019-07-17 Outpatient R [facility] [id number] Univers 10:00:00 10:00:00 SANTIAGO ity [facility] 2019-06-15 2019-06-15 Telephone East, 1.2.840.9 [id number] Univers 00:00:00 00:00:00 Santiago 57147.1.1 ity of 3.104.2.7 [place] .3.438028 Medica l .8 [place] 2019-06-13 2019-06-13 Telephone Team, [facility] 1.2.840.2 [id number] Univers 00:00:00 00:00:00 Health 74459.1.1 ity of [place].2.[place] .3.059930 Medica l .8 [place] 2019-05-10 2019-05-10 Refill [place], 1.2.840.2 [id number] Univers 00:00:00 00:00:00 Santiago 06124.1.1 ity of 3.104.2.7 [place] .3.003039 Medica l .8 [place] 2019-05-09 2019-05-09 Refill [place], 1.2.840.3 [id number] Univers 00:00:00 00:00:00 Santiago 45109.1.1 ity of 3.104.2.7 [place] .3.741279 Medica l .8 Branch 2019-04-30 2019-04-30 Outpatient R SELF, [facility] [id number] Univers 10:15:00 10:33:05 GADIEL ity o f [facility] 2019-04-18 2019-04-18 [employer] Yohan Cardenasrey 1.2.840.1 [id number] Univers 10:00:39 10:44:31 Visit [facility] 19852.1.1 ity of 3.104.2.7 [place] .3.720262 Medica l .8 [place] 2019-04-18 2019-04-18 Outpatient R RONALD, [facility] [id number] Univers 10:00:00 10:44:31 [place] ity of [facility] 2019-04-18 2019-04-18 Office [facility], 1.2.840.5 [id number] Univers 08:27:44 09:53:27 Visit Santiago 51636.1.1 ity of 3.104.2.7 [place] .3.682831 Medica l .8 [place] 2019-04-18 2019-04-18 Orders Doctor 1.2.840.2 [id number] Univers 00:00:00 00:00:00 Only Unassigned, 33039.1.1 ity of [place] 3.104.2.7 [place] .3.609629 Medica l .8 [place] 2019-04-11 2019-04-11 Refill Ronald, 1.2.840.7 [id number] Univers 00:00:00 00:00:00 [place] 13324.1.1 ity of 3.104.2.7 [place] .3.413627 Medica l .8 Branch 2019-04-09 2019-04-09 Refill Ronald, 1.2.840.6 [id number] Univers 00:00:00 00:00:00 Santiago 91955.1.1 ity of 3.104.2.7 [place] .3.399390 Medica l .8 [place] 2019-04-03 2019-04-03 Telephone Team, [facility] 1.2.840.7 [id number] Univers 00:00:00 00:00:00 Health 30533.1.1 it[place].2.[place] .3.811665 Medica l .8 [place] 2019-03-27 2019-03-27 Telephone Self, 1.2.840.0 [id number] Univers 00:00:00 00:00:00 Gadiel 81343.1.1 ity of 3.104.2.7 [place] .3.285374 Medica l .8 [place] 2019-01-17 2019-01-17 Office [place], 1.2.840.7 [id number] Univers 07:37:21 10:32:51 Visit Santiago 39875.1.1 ity of 3.104.2.7 [place] .3.193430 Medica l .8 [place] 2019-01-04 2019-01-12 Office Eveline Hansen 1.2.840.8 [id number] Univers 11:19:32 11:08:05 Visit Mariela 04975.1.1 ity of 3.104.2.7 [place] .3.362364 Medica l .8 [place] 2019-01-10 2019-01-10 Telephone Ephraimcharlie, 1.2.840.9 [id number] Univers 00:00:00 00:00:00 Eladio Inman 64133.1.1 ity of 3.104.2.7 [place] .3.940332 Medica l .8 [place] 2018-12-18 2018-12-18 Office Geraldine, 1.2.840.8 [id number] Univers 08:48:45 09:13:43 Visit Leyda 52744.1.1 it y of 3.104.2.7 [place] .3.971542 Medica l .8 [place] 2018-10-30 2018-10-30 Telephone East, 1.2.840.2 [id number] Univers 00:00:00 00:00:00 [place] 69170.1.1 ity of 3.104.2.7 [place] .3.800294 Medica l .8 [place] 2018-10-23 2018-10-23 Orders Doctor 1.2.840.2 [id number] Univers 00:00:00 00:00:00 Only Unassigned, 71942.1.1 ity of [place] 3.104.2.7 [place] .3.047787 Medica l .8 [place] 2018-10-23 2018-10-23 Nurse Selivn, 1.2.840.7 [id number] Univers 00:00:00 00:00:00 Triage Stefanie 01096.1.1 ity of 3.104.2.7 [place] .3.393593 Medica l .8 [place] 2018-10-23 2018-10-23 Telephone Self, 1.2.840.2 [id number] Univers 00:00:00 00:00:00 Gadiel 81320.1.1 ity of 3.104.2.7 [place] .3.172996 Medica l .8 [place] 2018-10-20 2018-10-20 Telephone Self, 1.2.840.3 [id number] Univers 00:00:00 00:00:00 Gadiel 51656.1.1 ity of 3.104.2.7 [place] .3.906306 Medica l .8 [place] Results Test Description Test Time Test Comments Results Result Comments Source BLOOD CULTURE SCREEN 2022-02-16 06:01:07 Test Item Value Reference Range Interpretation Comme nts Blood Culture-Aerobic (test No organisms isolated No growth Previous preliminary code = 77983-6) verified res ult was Culture In Prog ress on 02/11/2022 at 04 01 CDTPrevious pre liminary verified result was No growth at 24 ho urs on 02/12/2022 at 05 23 CDTPrevious pre liminary verified result was No growth at 48 ho urs on 02/13/2022 at 05 23 CDTPrevious pre liminary verified result was No growth at 72 ho urs on 02/14/2022 at 01 01 CDT Blood Culture-Anaerobic No organisms isolated No growth Previous preliminary (test code = 86860-0) verifi ed result was Culture In Prog ress on 02/11/2022 at 04 CDTPrevious pre liminary verified result was No growth at 24 ho urs on 02/12/2022 at 05 23 CDTPrevious pre liminary verified result was No growth at 48 ho urs on 02/13/2022 at 05 23 CDTPrevious pre liminary verified result was No growth at 72 ho urs on 02/14/2022 at 01 CDT Lab Interpretation (test Normal code = 05206-9) [id number]:01:07 Test Item Value Reference Range Interpretation Comments Blood Culture-Aerobic No organisms No growth Previo us (test code = 64257-0) isolated prelim inary verified result was Culture In Progress on 02/11/2022 at 08 21 CDTPrevious preliminary verified result was No growth a t 24 hours on 02/12/2022 at 05 23 CDTPrevious preliminary verified result was No growth a t 48 hours on 02/13/2022 at 05 23 CDTPrevious preliminary verified result was No growth a t 72 hours on 02/14/2022 at 05 23 CDT Blood No organisms No growth Previous Culture-Anaerobic isolated preliminar y (test code = 10589-7) verifi ed result was Culture In Progress on 02/11/2022 at 08 21 CDTPrevious preliminary verified result was No growth a t 24 hours on 02/12/2022 at 05 23 CDTPrevious preliminary verified result was No growth a t 48 hours on 02/13/2022 at 05 23 CDTPrevious preliminary verified result was No growth a t 72 hours on 02/14/2022 at 05 23 CDT Lab Interpretation Normal (test code = 68493-2) [id number] 10:49:10 Test Item Value Reference Range Interpretation Comments NT-proBNP (test code 2660 pg/mL See_Comment H [Autom ated = 0179760865) message] The system which generated this result transmitted reference range : <=125. The reference range was not used to interpret this result as normal/abnormal . KYLE (test code = KYLE) Biotin has been reported to cause a negative bias, interpret results relative to patient's use of biotin. Lab Interpretation Abnormal (test code = 03947-9) [facility] (NA, K, CL, CO2, GLUCOSE, BUN, CREATININE, CA)2022-02-15 10:44:07 Test Item Value Reference Range Interpretation Comments NA (test code = 134 mmol/L 135-145 L 5366627402) K (test code = 3.2 mmol/L 3.5-5 L 3531064822) CL (test code = 98 mmol/L 98-108 3048227898) CO2 TOTAL (test code = 27 mmol/L 23-31 2871705427) AGAP (test code = 2-16 7275151401) BUN (test code = 19 mg/dL 7-23 2980161323) GLUCOSE (test code = 102 mg/dL 70-110 5190626441) CREATININE (test code = 0.95 mg/dL 0.5-1.04 0360732493) CALCIUM (test code = 8.5 mg/dL 8.6-10.6 L 0027749116) eGFR (test code = mL/min/1.73m2 5255469511) KYLE (test code = KYLE) Association of [...] tests). Lab Interpretation Abnormal (test code = 84705-7) [facility] 10:44:07 Test Item Value Reference Range Interpretation Comments MAGNESIUM (test code = 6958662622) 1.8 mg/dL 1.7-2.4 Lab Interpretation (test code = Normal 42761-3) [facility] WITH [id number] 10:12:06 Test Item Value Reference Range Interpretation Comments WBC (test code = See_Comment L [Automated 6690-2) message] The sy stem which generated this result transmitted reference range : 4.30 - 11.10 10*3/?L. The reference range was not used to interpret this result as normal/abnormal . RBC (test code = See_Comment L [Automated 789-8) message] The sy stem which generated this result transmitted reference range : 3.93 - 5.25 10*6/?L. The reference range was not used to interpret this result as normal/abnormal . HGB (test code = 10.6 g/dL 11.6-15 L 718-7) HCT (test code = 31.2 % 35.7-45.2 L 4544-3) MCV (test code = 89.7 fL 80.6-95.5 787-2) MCH (test code = 30.5 pg 25.9-32.8 785-6) MCHC (test code = 34.0 g/dL 31.6-35.1 786-4) RDW-SD (test code = 47.8 fL 39-49.9 87299-3) RDW-CV (test code = 15.2 % 12-15.5 788-0) PLT (test code = See_Comment L [Automated 777-3) message] The sy stem which generated this result transmitted reference range : 166 - 358 10*3/ ?L. The reference r abbey was not used to interpret this result as normal/abnormal . MPV (test code = 8.9 fL 9.5-12.9 L 76319-0) NRBC/100 WBC (test See_Comment [Automat ed code = 8945190347) message] The system which generated this result transmitted reference range : 0.0 - 10.0 /100 WBCs. The refer ence range was not u sed to interpret th is result as normal/abnormal . NRBC x10^3 (test code See_Comment [Auto mated = 6587291378) message] The s ystem which generated this result transmitted reference range : 10*3/?L. The reference range was not used to interpret this result as normal/abnormal . GRAN MAT (NEUT) % 65.9 % (test code = 770-8) IMM GRAN % (test code 0.30 % = 5426299265) LYMPH % (test code = 21.0 % 736-9) MONO % (test code = 10.1 % 5905-5) EOS % (test code = 2.4 % 713-8) BASO % (test code = 0.3 % 706-2) GRAN MAT x10^3(ANC) 2.49 10*3/uL 1.88-7.09 (test code = 4385163643) IMM GRAN x10^3 (test 0-0.06 code = 1213985071) LYMPH x10^3 (test code 0.79 10*3/uL 1.32-3.29 L = 731-0) MONO x10^3 (test code 0.38 10*3/uL 0.33-0.92 = 742-7) EOS x10^3 (test code = 0.09 10*3/uL 0.03-0.39 711-2) BASO x10^3 (test code 0.01-0.07 = 704-7) Lab Interpretation Abnormal (test code = 89951-1) [facility] WITH [id number] 11:18:28 Test Item Value Reference Range Interpretation Comments WBC (test code = See_Comment L [Automated 6690-2) message] The sy stem which generated this result transmitted reference range : 4.30 - 11.10 10*3/?L. The reference range was not used to interpret this result as normal/abnormal . RBC (test code = See_Comment L [Automated 789-8) message] The sy stem which generated this result transmitted reference range : 3.93 - 5.25 10*6/?L. The reference range was not used to interpret this result as normal/abnormal . HGB (test code = 10.7 g/dL 11.6-15 L 718-7) HCT (test code = 31.9 % 35.7-45.2 L 4544-3) MCV (test code = 90.9 fL 80.6-95.5 787-2) MCH (test code = 30.5 pg 25.9-32.8 785-6) MCHC (test code = 33.5 g/dL 31.6-35.1 786-4) RDW-SD (test code = 49.5 fL 39-49.9 99313-9) RDW-CV (test code = 15.5 % 12-15.5 788-0) PLT (test code = See_Comment L [Automated 777-3) message] The sy stem which generated this result transmitted reference range : 166 - 358 10*3/ ?L. The reference r abbey was not used to interpret this result as normal/abnormal . MPV (test code = 11.4 fL 9.5-12.9 11554-4) IPF % (test code = 8.7 % 1.3-7.7 H Platelet count 6969833823) measured by fluorescence method. NRBC/100 WBC (test See_Comment [Automat ed code = 9066868188) message] The system which generated this result transmitted reference range : 0.0 - 10.0 /100 WBCs. The refer ence range was not u sed to interpret th is result as normal/abnormal . NRBC x10^3 (test code See_Comment [Auto mated = 8022480130) message] The s ystem which generated this result transmitted reference range : 10*3/?L. The reference range was not used to interpret this result as normal/abnormal . GRAN MAT (NEUT) % 62.0 % (test code = 770-8) IMM GRAN % (test code 0.80 % = 4991873463) LYMPH % (test code = 22.2 % 736-9) MONO % (test code = 9.6 % 5905-5) EOS % (test code = 5.1 % 713-8) BASO % (test code = 0.3 % 706-2) GRAN MAT x10^3(ANC) 2.21 10*3/uL 1.88-7.09 (test code = 8638658626) IMM GRAN x10^3 (test 0.03 10*3/uL 0-0.06 code = 9428356123) LYMPH x10^3 (test code 0.79 10*3/uL 1.32-3.29 L = 731-0) MONO x10^3 (test code 0.34 10*3/uL 0.33-0.92 = 742-7) EOS x10^3 (test code = 0.18 10*3/uL 0.03-0.39 711-2) BASO x10^3 (test code 0.01-0.07 = 704-7) POLYCHROMASIA (test 2+ See_Comment [Automa arpit code = 06416-1) message] The system which generated this result transmitted reference range : 2+. The referen ce range was not u sed to interpret th is result as normal/abnormal . TEARDROP CELLS (test 2+ See_Comment A [Autom ated code = 7791-7) message] The system which generated this result transmitted reference range : (none). The reference range was not used to interpret this result as normal/abnormal . Lab Interpretation Abnormal (test code = 65777-3) [facility]NA, K, CL, CO2, GLUCOSE, BUN, CREATININE, CA)2022-02-13 10:39:07 Test Item Value Reference Range Interpretation Comments NA (test code = 136 mmol/L 135-145 0992635110) K (test code = 4.1 mmol/L 3.5-5 7461283440) CL (test code = 102 mmol/L 98-108 2840110497) CO2 TOTAL (test code = 27 mmol/L 23-31 8767761944) AGAP (test code = 2-16 8733674631) BUN (test code = 22 mg/dL 7-23 6114219577) GLUCOSE (test code = 94 mg/dL 70-110 8186120781) CREATININE (test code = 0.94 mg/dL 0.5-1.04 7077080314) CALCIUM (test code = 8.1 mg/dL 8.6-10.6 L 3646474170) eGFR (test code = mL/min/1.73m2 2043921614) KYLE (test code = KYLE) Association of [...] tests). Lab Interpretation Abnormal (test code = 16616-9) [facility] 01:50:10 Test Item Value Reference Range Interpretation Comments Height (test code = in 6944349747) Weight (test code = lbs 7707404142) Systolic BP (test code mmHg = 4586736833) Diastolic BP (test code mmHg = 6672923125) Heart Rate (test code = bpm 0588223349) BSA (test code = 1.85 m2 8675874646) IVS (test code = 1.22 cm 7260771168) Interventricular Septum 1.22 cm Diastolic Thickness by 2D (test code = 4004705) LVIDD (test code = 5.00 cm 8314710992) Left Ventricular End 117.9 mL Diastolic Volume by Teichholz Method (test code = 4408905) LVPWD (test code = 1.22 cm 2945225585) PW (test code = 1.22 cm 0.6-1.2 2700260531) EF(Teich) (test code = 74.60 % 9127621695) LVIDS (test code = 2.80 cm 9944626201) Left Ventricular End 29.9 mL Systolic Volume by Teichholz Method (test code = 0742061) FS (test code = 44 % 4274738638) EF - 2D (test code = 74.60 % 68730870) LVOT diameter (test 2.16 cm code = 6629973342) LVOT area (test code = 3.70 cm2 2597839422) Ao root diam (test code 3.40 cm = 9540044677) Aortic root (test code 3.4 cm = 6527187915) Ao root annulus (test 3.4 cm code = 0851817180) LA size (test code = 3.4 cm 5578307816) TR Peak Spencer (test code 330.0 cm/s = 6868672093) Triscuspid Valve mmHg Regurgitation Peak Gradient (test code = 7531495471) PV REGURGITATION PEAK mmHg GRADIENT (test code = 7390526664) PI dec slope (test code 137.20 cm/s2 = 5880937178) LAV(MOD-sp4) (test code 102.90 mL = 6704713234) MV Peak E Spencer (test 84.1 cm/s code = 5802175744) MV Peak A Spencer (test 40.1 cm/s code = 1685142644) E/A ratio (test code = ratio 0090350102) MV valve area p 1/2 3.70 cm2 method (test code = 5071641836) MV dec slope (test code 413.00 cm/s2 = 6191760875) MV P1/2t max spencer (test 83.70 cm/s code = 5512686231) MV Prop V (test code = 41.80 cm/s 3298348047) Tapse (test code = 1.83 cm 3772949563) LVOT stroke volume 96.90 cm3 (test code = 8643135974) LVOT peak spencer (test 125.5 cm/s code = 6840045243) LVOT mn grad (test code mmHg = 8213121705) AV LVOT peak gradient mmHg (test code = 6670426912) LVOT peak VTI (test 26.4 cm code = 4794119822) LV V1 mean (test code = 78.10 cm/s 5528840663) Aortic valve mean 103.7 cm/s velocity (test code = 0074078450) Ao peak spencer (test code 165.6 cm/s = 7682445471) Ao VTI (test code = 37.2 cm 9783101109) AV area by cont VTI 2.6 cm2 (test code = 7064623786) AV area peak spencer (test 2.8 cm2 code = 8129234402) Ao max PG (test code = 11.00 mm[Hg] 8720376603) AV peak gradient (test mmHg code = 7911482477) AV valve area (test 2.60 cm2 code = 2692250424) AV mean gradient (test mmHg code = 4899479433) LA Volume Index (BP) 55.2 mL/m2 (test code = 6367950253) LA volume (BP) (test 102.1 mL code = 7335091457) LAV(MOD-sp2) (test code 86.10 mL = 6173083275) A2C EF (test code = 61.20 % 5683398811) EF(sp2-el) (test code = 61.60 % 2144158993) SV(MOD-sp2) (test code 47.10 mL = 9361041545) LV Diastolic Volume 70.7 mL (BP) (test code = 0297850274) A4C EF (test code = 53.00 % 8949659204) EF(MOD-bp) (test code = 56.70 % 9516537235) EF(sp4-el) (test code = 53.90 % 9978083535) LV Systolic Volume (BP) 30.6 mL (test code = 4106560563) SV(MOD-bp) (test code = 40.10 mL 3437667033) SV(MOD-sp4) (test code 32.40 mL = 9943558812) SV(sp4-el) (test code = 33.10 mL 9082410837) EF (test code = 4362236120) Left Ventricular Stroke 40.1 mL Volume by 2-D Biplane-MOD (test code = 2013653) LV Diastolic Volume 38.2 mL/m2 Index (BP) (test code = 5801068920) LV Systolic Volume 16.5 mL/m2 Index (BP) (test code = 1608825662) Radiology Study observation (narrative) (test code = 99644-9) KYLE (test code = KYLE) ?Left?Ventricle: Left ventricle size is normal. Moderately increased wall thickness. There is moderate concentric hypertrophy. Normal wall motion. Normal systolic function with a visually estimated EF of 55 - 60%. EF by 2D Rasheed biplane is 57%. There is grade 2 diastolic dysfunction. Elevated left ventricular filling pressure. ?Right?Ventricle: Normal systolic function. ?Left?Atrium: Left atrium is severely dilated. Left atrium volume index is 55.2 mL/m2. ?Aortic?Valve: No hemodynamically significant . ?Tricuspid?Valve: Mild transvalvular regurgitation. There is mild pulmonary hypertension. ?Right ventricular systolic pressure is 45-50 mmHg. ?IVC/SVC: IVC diameter is less than or equal to 21 mm and decreases greater than 50% during inspiration; therefore the estimated right atrial pressure is normal (~0-5 mmHg). ?Pericardium: No pericardial effusion. John Horner MD Left VentricleLeft ventricle size is normal. Moderately increased wall thickness. There is moderate concentric hypertrophy. Normal wall motion. Normal systolic function with a visually estimated EF of 55 - 60%. EF by 2D Rasheed biplane is 57%. There is grade 2 diastolic dysfunction. Elevated left ventricular filling pressure.Right VentricleRight ventricle size is normal. Normal systolic function.Left AtriumLeft atrium is severely dilated. Left atrium volume index is 55.2 mL/m2.Right AtriumRight atrium size is normal.IVC/SVCIVC diameter is less than or equal to 21 mm and decreases greater than 50% during inspiration; therefore the estimated right atrial pressure is normal (~0-5 mmHg).Mitral ValveMitral valve structure is normal. Trace transvalvular regurgitation. No stenosis.Tricuspid ValveTricuspid valve structure is normal. Mild transvalvular regurgitation. There is mild pulmonary hypertension. Right ventricular systolic pressure is 45-50 mmHg. No stenosis.Aortic ValveAortic valve structure is normal. No transvalvular regurgitation. No hemodynamically significant .Pulmonic ValveValve structure is normal. Mild transvalvular regurgitation. No stenosis.Ascending AortaNormal sized annulus and sinus of Valsalva.PericardiumTh e pericardium is normal. No pericardial effusion.Study DetailsStudy quality was adequate. A complete echocardiogram was performed using 2D, color flow Doppler and spectral Doppler. Patient exhibited sinus bradycardia.Wall Scoring BaselineScore Index: 1.00The left ventricular wall motion is normal. [facility] [id number] 05:45:01 Test Item Value Reference Interpretation Comments Range TROPONIN I (test See_Comment [Automated code = 7346198524) message] The system which generated this result transmitted reference range : <=0.034. The reference range was not used to interpret this result as normal/abnormal . KYLE (test code = Reference (Normal) KYLE) Range (defined by the 99th percentile reference limit): <= 0.034 ng/mL Note: Cardiac troponin begins to rise 3-4 hours after the onset of ischemia. Repeat in 4-6 hours if the sample was drawn within 3-4 hours of the onset of the symptom and found normal. Diagnosis of myocardial injury is made with acute changes in cTn concentrations with at least one serial sample above the 99th percentile upper reference limit (URL), taken together with the patient's clinical presentation. Biotin has been reported to cause a negative bias, interpret results relative to patient's use of biotin. Lab Interpretation Normal (test code = 01893-5) [facility] HospitalN-TERMINAL GAI-[id number] 05:41:40 Test Item Value Reference Range Interpretation Comments NT-proBNP (test code 4250 pg/mL See_Comment H [Autom ated = 7757095665) message] The system which generated this result transmitted reference range : <=125. The reference range was not used to interpret this result as normal/abnormal . KYLE (test code = KYLE) Biotin has been reported to cause a negative bias, interpret results relative to patient's use of biotin. Lab Interpretation Abnormal (test code = 32924-5) [facility] HospitalACTIVATED PARTIAL THRMPLAS [id number] 05:35:21 Test Item Value Reference Range Interpretation Comments APTT Patient (test See_Comment [Automat ed code = 3173-2) message] The system which generated this result transmitted reference range : 23 - 38 Seconds . The reference range was not used to interpr et this result as normal/abnormal . KYLE (test code = KYLE) The [facility] patient population mean normal value for aPTT is 30 seconds. Lab Interpretation Normal (test code = 03428-7) [facility] HospitalPROTHROMBIN TIME / [id number] 05:33:21 Test Item Value Reference Range Interpretation Comments PROTIME PATIENT (test See_Comment [Auto mated message] code = 5964-2) The system [employer] ich generated this result transmitted ref erence range: 12.0 - 1 4.7 Seconds. The re ference range was not u sed to interpret this result as normal/abnor mal. INR (test code = 6301-6) Nor mal INR <1.1; Warfarin Therap eutic range 2.0 to 3. 0 or 2.5 to 3.5, dep ending upon the indica tions. Lab Interpretation (test Normal code = 83882-4) [facility] HospitalCOMP. METABOLIC PANEL (91764)2022-02-11 05:33:21 Test Item Value Reference Range Interpretation Comments NA (test code = 137 mmol/L 135-145 9332277696) K (test code = 4.3 mmol/L 3.5-5 7858180499) CL (test code = 103 mmol/L 98-108 1640661483) CO2 TOTAL (test code = 25 mmol/L 23-31 8236766139) AGAP (test code = 2-16 3810456885) BUN (test code = 19 mg/dL 7-23 7169177453) GLUCOSE (test code = 120 mg/dL 70-110 H 7497148527) CREATININE (test code = 1.15 mg/dL 0.5-1.04 H 2387546763) TOTAL BILI (test code = 0.9 mg/dL 0.1-1.5 2536261147) CALCIUM (test code = 8.9 mg/dL 8.6-10.6 2930646249) T PROTEIN (test code = 6.6 g/dL 6.3-8.2 4593847246) ALBUMIN (test code = 4.0 g/dL 3.5-5 7039406383) ALK PHOS (test code = 73 U/L 34-122 8553840494) ALTv (test code = 18 U/L 5-35 1742-6) AST(SGOT) (test code = 31 U/L 13-40 3306867139) eGFR (test code = mL/min/1.73m2 4624973448) KYLE (test code = KYLE) Association of [...] tests). Lab Interpretation Abnormal (test code = 61456-2) [facility] WITH [id number] 05:14:37 Test Item Value Reference Range Interpretation Comments WBC (test code = See_Comment [Automated 7490-2) message] The sy stem which generated this result transmitted reference range : 4.30 - 11.10 10*3/?L. The reference range was not used to interpret this result as normal/abnormal . RBC (test code = See_Comment L [Automated 309-8) message] The sy stem which generated this result transmitted reference range : 3.93 - 5.25 10*6/?L. The reference range was not used to interpret this result as normal/abnormal . HGB (test code = 12.0 g/dL 11.6-15 718-7) HCT (test code = 35.4 % 35.7-45.2 L 4544-3) MCV (test code = 90.5 fL 80.6-95.5 787-2) MCH (test code = 30.7 pg 25.9-32.8 785-6) MCHC (test code = 33.9 g/dL 31.6-35.1 786-4) RDW-SD (test code = 47.9 fL 39-49.9 43481-0) RDW-CV (test code = 14.9 % 12-15.5 788-0) PLT (test code = See_Comment L [Automated 777-3) message] The sy stem which generated this result transmitted reference range : 166 - 358 10*3/ ?L. The reference r abbey was not used to interpret this result as normal/abnormal . MPV (test code = 9.1 fL 9.5-12.9 L 83008-1) NRBC/100 WBC (test See_Comment [Automat ed code = 6619059654) message] The system which generated this result transmitted reference range : 0.0 - 10.0 /100 WBCs. The refer ence range was not u sed to interpret th is result as normal/abnormal . NRBC x10^3 (test code See_Comment [Auto mated = 8714800244) message] The s ystem which generated this result transmitted reference range : 10*3/?L. The reference range was not used to interpret this result as normal/abnormal . GRAN MAT (NEUT) % 78.5 % (test code = 770-8) IMM GRAN % (test code 0.20 % = 3992159452) LYMPH % (test code = 11.6 % 736-9) MONO % (test code = 8.4 % 5905-5) EOS % (test code = 1.1 % 713-8) BASO % (test code = 0.2 % 706-2) GRAN MAT x10^3(ANC) 3.45 10*3/uL 1.88-7.09 (test code = 6600466463) IMM GRAN x10^3 (test 0-0.06 code = 0761186996) LYMPH x10^3 (test code 0.51 10*3/uL 1.32-3.29 L = 731-0) MONO x10^3 (test code 0.37 10*3/uL 0.33-0.92 = 742-7) EOS x10^3 (test code = 0.05 10*3/uL 0.03-0.39 711-2) BASO x10^3 (test code 0.01-0.07 = 704-7) Lab Interpretation Abnormal (test code = 34673-6) [facility] Coronavirus 2019 Luzadye1983-10-92 18:08:00 Test Item Value Reference Range Interpretation [...] det ection of nucleic acids f rom qqrTFVI-LfB-6 v irus and diagnosis of SA RS-CoV-2 virusinfection. It is an Emergency Use Authorization ( EUA) testauthorized by the U.S. FDA. BASIC METABOLIC [id number] 09:37:00 Test Item Value Reference Range Interpretation [...] = 9.0 mg/dL 8.0-10.5 N CA) PROTHROMBIN [id number] 09:32:00 Test Item Value Reference Range Interpretation Comments PROTHROMBIN TIME 12.7 SECONDS 9.3-12.9 N PATIENT (test code = PTP) INTERNATIONAL NORMAL 1.1 0.8-1.2 N TARGET INR BY RATIO (test code = INDICATIO N Indication INR) INR1. Prophylax is of venous thrombos is 2.0 - 3.0 (orthoped ic surgery), Proph ylaxis of venous thro mbosis (other than hig h-risk surgery), Treat ment [...] (to prevent recurrent infar ct). 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 1955 Sex: F FAX: Carmenza Kelly [phone] [place]: St: ADM FAX: Mike Scales MD [phone] FAX: Bahman Chopra [phone] Name: LIO WATTS [facility] : 1955 Age/S: 66/F [address] [place] [address] Unit #: [id number] Loc: [place] [address] Phys: Bahman ChopraP Acct: [id number] Dis Date: Status: ADM IN PHONE #: [phone] Exam Date: 06/17/2021 1320 FAX #: [phone] Reason: WATCHMAN EXAMS: CPT CODE: [id number] XR CHEST 1 V 49735 PROCEDURE INFORMATION: Exam: XR Chest Exam date [...] Chopra Technologist: RT Taylor(R) Trnscrd Date/Time/By: 06/17/2021 (3652) : By: Susanna Orig Print D/T: S: 06/17/2021 (0895) PAGE 1 Signed ReportCOVID 19 Asymptomatic IH [...] high or waivedcomplexit y tests. BASIC METABOLIC [id number] 11:37:00 Test Item Value Reference Range Interpretation [...] code = 9.0 mg/dL 8.0-10.5 N CA) HJUSFSTWTK8231-84-30 11:37:00 Test Item Value Reference Range Interpretation Comments PREALBUMIN (test code = PREALB) 24.3 mg/dL 16.0-40.0 N PROTHROMBIN PAMV0915-11-64 11:03:00 Test Item Value Reference Range Interpretation [...] (to prevent recurrent infar ct). CBC W/AUTO [id number] 10:59:00 Test Item Value Reference Range Interpretation [...] 3/uL 0.0-0.1 N NRBC#) - CHEST 2 X2401-10-55 00:00:00 [facility] : 1955 Sex: F FAX: Carmenza Kelly DO [phone] [place]: St: PRE FAX: Mike Scales MD [phone] Name: LIO WATTS : 1955 Age/S: 66/F [address] [place] [address] Unit #: [id number] Loc: [place] [address] Phys: Mike Lund MD Acct: [id number] Dis Date: Status: PRE SDC PHONE #: [phone] Exam Date: 06/16/2021 1120 FAX #: [phone] Reason: PREOP EXAMS: CPT CODE: [id number] XR CHEST 2 V 71360 PROCEDURE INFORMATION: Exam: XR Chest Exam date [...] MD Technologist: RT Andree(R) Trnbob Date/Time/By: 06/16/2021 (1137) : By: [email or web address] Orig Print D/T: S: 06/16/2021 (1272) PAGE 1 Signed ReportGastrointestinal lgzec7797-04-18 04:35:05 Test Item Value Reference Interpretation Comments Range Adenovirus 40/41 PCR Not Detected Specime n (test code = 7113) Informati onSpecimen Source: StoolSp ecimen Site: Nonpreser antohny Astrovirus PCR (test Not Detected code = [...] Rotavirus PCR (test Not Detected code = 3249846) Salmonella PCR (test Not Detected code = [...] PCR Not Detected (test code = 7124) [facility] [id number] 19:30:47 Test Item Value Reference Range Interpretation Comments Case number (test [id number] code = 2109561) Surgical pathology See link below for PDF report (test code = Lab Report 2255) Result status (test This is Supplemental code = 8382964) Report for [id number] [facility]2021-04-09 16:31:00 Test Item Value Reference Range Interpretation Comments POC Activated Clotting Time (test code 153 s = POC Activated Clotting Time) [facility]McdmeuyFBGESNBJDA4920-00-45 16:31:00 Test Item Value Reference Range Interpretation Comments POC Activated Clotting Time (test code 153 s = POC Activated Clotting Time) [facility] CenterMhudvtjMJVJJJPTNB8321-69-25 16:31:00 Test Item Value Reference Range Interpretation Comments POC Activated Clotting Time (test code 153 s = POC Activated Clotting Time) [facility] CenterPlbynfvLNQEQZVTJX9688-13-03 16:31:00 Test Item Value Reference Range Interpretation Comments POC Activated Clotting Time (test code 153 s = POC Activated Clotting Time) [facility] CenterWhklinoQCWNOOHGQX1719-61-74 16:31:00 Test Item Value Reference Range Interpretation Comments POC Activated Clotting Time (test code 153 s = POC Activated Clotting Time) [facility] CenterGculqtiUWRBRBRAZK3920-73-09 16:31:00 Test Item Value Reference Range Interpretation Comments POC Activated Clotting Time (test code 153 s = POC Activated Clotting Time) [place] 310601-04-09 16:31:00 Test Item Value Reference Range Interpretation Comments POC Activated Clotting Time (test code 153 s = POC Activated Clotting Time) [facility] CenterNpsldzoNPUJUPZNXP2748-49-23 14:37:00 Test Item Value Reference Range Interpretation Comments POC Activated Clotting Time (test code 454 s = POC Activated Clotting Time) [place] 310601-04-09 14:37:00 Test Item Value Reference Range Interpretation Comments POC Activated Clotting Time (test code 454 s = POC Activated Clotting Time) [facility] CenterQbdvfffTYZHWUVBZK0355-67-93 14:37:00 Test Item Value Reference Range Interpretation Comments POC Activated Clotting Time (test code 454 s = POC Activated Clotting Time) [facility] CenterSsnvxzvKGQJUEOJEN6079-94-81 14:37:00 Test Item Value Reference Range Interpretation Comments POC Activated Clotting Time (test code 454 s = POC Activated Clotting Time) [facility] CenterIfuhcakGAPOHCEKEC3492-91-23 14:37:00 Test Item Value Reference Range Interpretation Comments POC Activated Clotting Time (test code 454 s = POC Activated Clotting Time) [facility] CenterOblyuovGCDNWRKKEJ7756-54-27 14:37:00 Test Item Value Reference Range Interpretation Comments POC Activated Clotting Time (test code 454 s = POC Activated Clotting Time) [facility] CenterUzkffgbEOSCDTEAAM4189-52-71 14:37:00 Test Item Value Reference Range Interpretation Comments POC Activated Clotting Time (test code 454 s = POC Activated Clotting Time) [facility] CenterAghuyjoISYLDDXEES9673-84-93 14:13:00 Test Item Value Reference Range Interpretation Comments POC Activated Clotting Time (test code 354 s = POC Activated Clotting Time) [facility] CenterMccfbmhPCMVVNQHYA5480-29-26 14:13:00 Test Item Value Reference Range Interpretation Comments POC Activated Clotting Time (test code 354 s = POC Activated Clotting Time) [place] 310601-04-09 14:13:00 Test Item Value Reference Range Interpretation Comments POC Activated Clotting Time (test code 354 s = POC Activated Clotting Time) [facility] CenterJdxsjllMEMVVXKNJY4104-72-38 14:13:00 Test Item Value Reference Range Interpretation Comments POC Activated Clotting Time (test code 354 s = POC Activated Clotting Time) [facility] QfuhoxiNTCZDEPJAB1762-78-03 14:13:00 Test Item Value Reference Range Interpretation Comments POC Activated Clotting Time (test code 354 s = POC Activated Clotting Time) [facility] CenterSeiuuzuDEIWTFLQVB0862-90-87 14:13:00 Test Item Value Reference Range Interpretation Comments POC Activated Clotting Time (test code 354 s = POC Activated Clotting Time) [facility] CenterGpoaqnrAROULWNBXR3191-14-30 14:13:00 Test Item Value Reference Range Interpretation Comments POC Activated Clotting Time (test code 354 s = POC Activated Clotting Time) [facility] BANK KSFFXLF1107-22-91 10:37:00Negative (08/29/20 5:37 AM) [facility] EOGUG6570-19-81 10:37:68893Fyziwgpb HermannCHEM PANEL 2020-08-29 10:37:0028[facility]annCHE[facility] SYSAU5716-50-62 10:37:001.01[facility]annCHE[facility] RZWUV5148-29-19 10:37:70788Ezuaocwb [facility]CHE[facility] XUEMG7478-66-16 10:37:003.8[facility]annCHE[facility] RPCDM4983-42-07 10:37:33121Nfyugmrp [facility]annCHEM PEWAC4399-90-92 10:37:0028[facility]annCHE[facility] MVZRT0477-75-64 10:37:009.8 [facility]CHE[facility] GIQDF8951-91-10 10:37:0011.8[facility]annCHEM PANEL 2020-08-29 10:37:0059[facility]annCHEM LNROK1684-62-75 10:37:002.9[facility] OmarqomVQWOOJTGAU0101-87-24 10:37:006.8[facility] BkkovyvPLJXUDTWOE6017-00-01 10:37:004.47[facility] NeoymmzXJJEDZQZFU9766-44-04 10:37:0010.6[facility] [place] ULQGXYBZCG3264-58-35 10:37:0034.0[facility] LjrtjcaIHERLJVWQJ0140-84-10 10:37:00 76.1[facility] YbgvfogYFLECFSGWZ7074-19-68 10:37:00 Test Item Value Reference Range Interpretation Comments MCH (test code = MCH) 23.8 pg 27.0-31.0 [facility] XsnsfguDVHEAVHDFB2410-22-29 10:37:0031.3[facility]annHEMATOLOGY 2020-08-29 10:37:0018.2[facility] DnmuwgzBDJUODFXZH3626-83-39 10:37:58178Vjkuyxwo LjhqgzvEBBHWKKHNR9361-40-51 10:37:007.5[facility] HlovzpdOJTCGBSNLJ6815-51-53 10:37:00 Test Item Value Reference Range Interpretation Comments PT (test code = PT) 12.8 s 12.0-14.7 [facility] FyjmxemWOKNNZAQVX7994-71-79 10:37:00 Test Item Value Reference Range Interpretation Comments INR (test code = INR) 0.97 1 0.85-1.17 [facility] VcrvnmdUKCTWFSATV9234-32-44 10:37:00 Test Item Value Reference Range Interpretation Comments PTT (test code = PTT) 25.0 s 22.9-35.8 [facility] DwxeltzUKPZZZSWAY9957-19-63 10:37:0070.5[facility]annHEMATOLOGY 2020-08-29 10:37:0018.8[facility] AramszpLKJIIITCLA6453-77-25 10:37:009.5[facility] CfyusskXRXSTMZGHG9021-50-54 10:37:000.9[facility] MtwafqtQQUCEAIYQY8688-88-17 10:37:000.3[facility] VjijlgvHOACDUMPMA7971-82-54 10:37:004.8[facility] Marty WGNJALXNHI6061-62-39 10:37:001.3[facility] DvpclzoHBTNQSBXXB7271-30-04 10:37:000.6 [facility] AtvuzajQUQWODBCCP2269-86-50 10:37:000.1[facility]annHEMATOLOGY 2020-08-29 10:37:001+ *ABN*(08/29/20 5:37 AM)[facility] JztvgaoXHHDSRLVEE4238-47-98 10:37:00Not Detected (08/29/20 5:37 AM)[facility] HermannBLOOD BANK RESULTS 2020-08-29 10:37:00Negative (08/29/20 5:37 AM)[facility]annCHEM ZHPVP8336-51-93 10:37:08133Iwdjporo HermannCHEM PKVBB3508-22-95 10:37:0028[facility]annCHEM XPNXE5645-55-92 10:37:001.01[facility]annCHEM PIRWC4253-22-10 10:37:42372 [facility]annCHE[facility] KYAMK1565-21-33 10:37:003.8[facility]annCHEM PANEL 2020-08-29 10:37:43386Wxjrrkow HermannCHEM XPSAH5598-11-37 10:37:0028[facility]annCHEM MEULD7853-38-02 10:37:009.8[facility]annCHEM KTFIB4552-98-88 10:37:0011.8[facility]annCHEM SAVFV8516-02-69 10:37:0059[facility]annCHEM RCPXB9591-19-74 10:37:002.9[facility] LoxgzllCKJQHLCUCC7380-22-68 10:37:006.8 [facility] XbqjlfqMXBOOIQPHD7584-60-69 10:37:004.47[facility]annHEMATOLOGY 2020-08-29 10:37:0010.6[facility] VrplyolMCZDVLOTQV4014-75-74 10:37:0034.0[facility] KdipbieXAUGDYDBBX7071-97-45 10:37:0076.1[facility] BbutmdoWXOQLJOYDE3962-92-35 10:37:00 Test Item Value Reference Range Interpretation Comments MCH (test code = MCH) 23.8 pg 27.0-31.0 [facility] WgmwkbdFURMXJTHNF3796-57-84 10:37:0031.3[facility]annHEMATOLOGY 2020-08-29 10:37:0018.2[facility] QmxjkwvHWDZMLOXLH9136-28-78 10:37:83970Jmzqmczf OzyvrmhMZDGXGYSDW0776-73-13 10:37:007.5[facility] EdgxjqgLPZPOBZIHE3221-37-65 10:37:00 Test Item Value Reference Range Interpretation Comments PT (test code = PT) 12.8 s 12.0-14.7 [facility] MxmvxxcMIXJOHVXGH0302-85-23 10:37:00 Test Item Value Reference Range Interpretation Comments INR (test code = INR) 0.97 1 0.85-1.17 [facility] RrcshiqWMITMCLTDN7451-71-85 10:37:00 Test Item Value Reference Range Interpretation Comments PTT (test code = PTT) 25.0 s 22.9-35.8 [facility] UjuszrkBXOWJIVKVX1658-58-59 10:37:0070.5[facility]annHEMATOLOGY 2020-08-29 10:37:0018.8[facility] UepershVAEWEQMDMZ8505-04-09 10:37:009.5[facility] VpxwhxfIRFCTNVZYU8519-53-68 10:37:000.9[facility] PxairjjAIEYAISLWC0160-05-59 10:37:000.3[facility] FpyvcpwLYRSKITMWX4601-10-81 10:37:004.8[facility] Marty APMODFBCDN9270-20-74 10:37:001.3[facility] EgabxnhUPBYBFIYAW6182-80-05 10:37:000.6 [facility] HxqglygALUWQBLRWM5031-71-90 10:37:000.1[facility]annHEMATOLOGY 2020-08-29 10:37:001+ *ABN*(08/29/20 5:37 AM)[facility] SpoxpmzDKZNUBSNCY7198-34-35 10:37:00Not Detected (08/29/20 5:37 AM)[facility] HermannBLOOD BANK RESULTS 2020-08-29 10:37:00Negative (08/29/20 5:37 AM)[facility]annCHEM XIDYM8661-95-99 10:37:57811Ftclmunp HermannCHEM [id number] 10:37:0028[facility]annCHE[facility] [id number] 10:37:001.01[facility]annCHE[facility] [id number] 10:37:04522 [facility] [id number] 10:37:003.8[facility]annCHEM PANEL 2020-08-29 10:37:36945Xaxjijam HermannCHEM [id number] 10:37:0028[facility]annCHE[facility] [id number] 10:37:009.8[facility]annCHE[facility] [id number] 10:37:0011.8[facility]annCHEM CYGUT5998-82-55 10:37:0059[facility]annCHEM SORHY6167-14-19 10:37:002.9[facility] WdzewrpXGGMIHODSD7581-66-72 10:37:006.8 [facility] HzhggpeNPOVSUHHMB4839-25-79 10:37:004.47[facility]annHEMATOLOGY 2020-08-29 10:37:0010.6[facility] TrqtslxMDUUKJAIHU4976-76-78 10:37:0034.0[facility] NlnphizUOTFRGMJXT7174-13-74 10:37:0076.1[facility] PbivsjsPNQJRXHBYA5400-78-54 10:37:00 Test Item Value Reference Range Interpretation Comments MCH (test code = MCH) 23.8 pg 27.0-31.0 [facility] TqsjwowLFUBMZNUAZ7398-29-08 10:37:0031.3[facility]annHEMATOLOGY 2020-08-29 10:37:0018.2[facility] TdyoyndNEZJIJWROF6063-45-19 10:37:99398Qmyoudnn XqbdxzyUQZLXVMQBI1234-50-81 10:37:007.5[facility] FjngetbXQSOAYYZFJ8218-62-88 10:37:00 Test Item Value Reference Range Interpretation Comments PT (test code = PT) 12.8 s 12.0-14.7 [facility] TueygqxYZCJABYUVH7122-42-04 10:37:00 Test Item Value Reference Range Interpretation Comments INR (test code = INR) 0.97 1 0.85-1.17 [facility] EpxpuepUYZIYQUGDH7946-34-98 10:37:00 Test Item Value Reference Range Interpretation Comments PTT (test code = PTT) 25.0 s 22.9-35.8 [facility] HcjarirOVBSGOWSNH3613-50-68 10:37:0070.5[facility]annHEMATOLOGY 2020-08-29 10:37:0018.8[facility] UtcziavFCAYKSLPPL1454-43-91 10:37:009.5[facility] OmpcqyyKWYWGIEZYR0274-09-38 10:37:000.9[facility] ZpgzxthERPKFIRNHK3573-27-48 10:37:000.3[facility] FolcugeEUBHKUYWCO9040-80-53 10:37:004.8[facility] HGARGMZEDW0048-64-76 10:37:001.3[facility] JdpfmssGJROURYHXY6826-49-70 10:37:000.6 [facility] RwilqcdWMANLBODWC9603-07-75 10:37:000.1[facility]annHEMATOLOGY 2020-08-29 10:37:001+ *ABN*(08/29/20 5:37 AM)[facility] VyyrivcQFGLLSLPQY3218-61-72 10:37:00Not Detected (08/29/20 5:37 AM)[facility]annBL[facility] BANK RESULTS 2020-08-29 10:37:00Negative (08/29/20 5:37 AM)[facility]annCHEM FGGTI2960-13-83 10:37:19823Xzatzgmy HermannCHEM SMXKX3234-39-15 10:37:0028[facility]annCHEM KZRES8642-60-32 10:37:001.01[facility]annCHEM TSZIB0186-96-69 10:37:13776 [facility]annCHEM MUVRN9599-13-62 10:37:003.8[facility] HermannCHEM PANEL 2020-08-29 10:37:13355Joontmid HermannCHEM IJGXD5718-37-14 10:37:0028[facility]annCHEM JQXPI3676-59-91 10:37:009.8[facility]annCHEM OBSUC0777-92-97 10:37:0011.8[facility]annCHEM QLJVE2402-80-53 10:37:0059[facility]annCHEM PVUYJ9330-53-22 10:37:002.9[facility] OprgtjyOBCRXRLFPX5777-26-13 10:37:006.8 [facility] GuwtyxiZGSNPDHTCB2806-24-47 10:37:004.47[facility]annHEMATOLOGY 2020-08-29 10:37:0010.6[facility] LxzrfmqYAPCRMNWNV3039-76-28 10:37:0034.0[facility] BcxdvijPNIICZYZDF3546-12-71 10:37:0076.1[facility] YzgnpmwSMLUDSRUKG0197-06-61 10:37:00 Test Item Value Reference Range Interpretation Comments MCH (test code = MCH) 23.8 pg 27.0-31.0 [facility] ZkjnngbYBQEIHIHQX4667-63-31 10:37:0031.3[facility]annHEMATOLOGY 2020-08-29 10:37:0018.2[facility] DswrnixSQDELJABMT0056-96-44 10:37:81229Nhhjociq NkvgdnmJFFDUAVCIF8333-58-02 10:37:007.5[facility] BqvjzcvQXEYIGMAJY7674-95-46 10:37:00 Test Item Value Reference Range Interpretation Comments PT (test code = PT) 12.8 s 12.0-14.7 [facility] FoatenoWYEYNOYXCJ7899-33-30 10:37:00 Test Item Value Reference Range Interpretation Comments INR (test code = INR) 0.97 1 0.85-1.17 [facility] JpxlcmcHEYDAJTDHZ6164-28-43 10:37:00 Test Item Value Reference Range Interpretation Comments PTT (test code = PTT) 25.0 s 22.9-35.8 [facility] DpyjkkuRYYOGZXDZJ8140-11-34 10:37:0070.5[facility] HermannHEMATOLOGY 2020-08-29 10:37:0018.8[facility] UcvzdhxWMBHMLETFE0005-11-74 10:37:009.5[facility] SqpuvqxUGBAVMWDPI7238-72-68 10:37:000.9[facility] ZrrymfzUTHXFOASYC8118-55-39 10:37:000.3[facility] CwercaeYPTLMACVUB7126-79-46 10:37:004.8[facility] BCCDIMHVEA7156-50-03 10:37:001.3[facility] YnqidewINRFIABWZF2240-66-79 10:37:000.6 [facility] TcgcaerYBPETLHWCB3031-87-00 10:37:000.1[facility] HermannHEMATOLOGY 2020-08-29 10:37:001+ *ABN*(08/29/20 5:37 AM)[facility] DagruznXNCTVBBZUF7733-81-08 10:37:00Not Detected (08/29/20 5:37 AM)[facility]annBL[facility] BANK RESULTS 2020-08-29 10:37:00Negative (08/29/20 5:37 AM)[facility]annCHEM WKTCQ9206-29-65 10:37:83357Qhunigno HermannCHEM URMYF0220-80-34 10:37:0028[facility]annCHEM QVAJV1530-27-98 10:37:001.01[facility]annCHEM ZFUNB6973-85-08 10:37:10458 [facility]annCHEM NJKZP4272-85-98 10:37:003.8[facility] HermannCHEM PANEL 2020-08-29 10:37:30061Wxlseevt HermannCHEM EOEBS4669-90-44 10:37:0028[facility] HermannCHEM ZXZTG3849-63-44 10:37:009.8[facility] HermannCHEM ESOYJ0473-06-39 10:37:0011.8[facility] HermannCHEM JFSXG3403-91-65 10:37:0059[facility]annCHEM CZQGF8932-54-10 10:37:002.9[facility] CgrworeAEVHJOTWIB1158-19-60 10:37:006.8 [facility] TtttnfmIIAINHITXC6339-27-17 10:37:004.47[facility]annHEMATOLOGY 2020-08-29 10:37:0010.6[facility] JjjayxwIEDSSLJSOJ6438-41-66 10:37:0034.0[facility] FpkfqpqMAINOCGUEK8371-31-56 10:37:0076.1[facility] CwyajcxRBVIBAXQOB3063-96-63 10:37:00 Test Item Value Reference Range Interpretation Comments MCH (test code = MCH) 23.8 pg 27.0-31.0 [facility] DjqhgdgDJOFLXESKQ5961-78-21 10:37:0031.3[facility] HermannHEMATOLOGY 2020-08-29 10:37:0018.2[facility] HfrmwkeACNTXJVLUF0165-14-04 10:37:44021Rhemcigq ZxghbneEUMISGSAZB5762-12-71 10:37:007.5[facility] MdgrzelWNKYPXLBIB5563-47-19 10:37:00 Test Item Value Reference Range Interpretation Comments PT (test code = PT) 12.8 s 12.0-14.7 [facility] SibpuryHHBWTXAVYA9265-49-25 10:37:00 Test Item Value Reference Range Interpretation Comments INR (test code = INR) 0.97 1 0.85-1.17 [facility] YxdtucsWOAGKBCYDD8672-03-75 10:37:00 Test Item Value Reference Range Interpretation Comments PTT (test code = PTT) 25.0 s 22.9-35.8 [facility] JavkkfvPSKGPJYLLB9003-22-22 10:37:0070.5[facility] HermannHEMATOLOGY 2020-08-29 10:37:0018.8[facility] RrpnmrvHEWTYSMTWD0583-49-46 10:37:009.5[facility] RaqllbeMLCTWXOOIJ4767-73-99 10:37:000.9[facility] CnzwersCQQGPTZHFM2877-12-22 10:37:000.3[facility] LuozqrpKVBHGTBVLJ4444-23-61 10:37:004.8[facility] HZBIZDIWRP0228-97-09 10:37:001.3[facility] AjrztfqPWGLHCQGAD4458-71-55 10:37:000.6 [facility] BxypnwtFMJZHYEWOW9412-93-85 10:37:000.1[facility] HermannHEMATOLOGY 2020-08-29 10:37:001+ *ABN*(08/29/20 5:37 AM)[facility] JnewvbjWRWCRHVAZE5965-80-55 10:37:00Not Detected (08/29/20 5:37 AM)[facility]annBLOOD BANK RESULTS 2020-08-29 10:37:00Negative (08/29/20 5:37 AM)[facility] HermannCHEM EBALI0129-60-32 10:37:00474Dmngvhkk HermannCHEM ERAPF6346-20-26 10:37:0028[facility] HermannCHEM UWGOO9525-19-82 10:37:001.01[facility] HermannCHEM YGEAV6344-92-64 10:37:97513 [facility]annCHEM JARIG1440-20-98 10:37:003.8[facility] HermannCHEM PANEL 2020-08-29 10:37:55221Ozjvwarj HermannCHEM NACLP1339-12-12 10:37:0028[facility] HermannCHEM PIMGO1395-46-72 10:37:009.8[facility] HermannCHEM RDUVY5342-48-06 10:37:0011.8[facility] HermannCHEM NMPIU5835-16-40 10:37:0059[facility] HermannCHEM MECNA1699-22-11 10:37:002.9[facility] KevuolwTMAEUQATCW1033-48-16 10:37:006.8 [facility] BhsmxfbJCBNASUTCU5921-27-61 10:37:004.47[facility] HermannHEMATOLOGY 2020-08-29 10:37:0010.6[facility] AttvmvgPHUKSOZODQ5005-94-29 10:37:0034.0[facility] IsribexSEQCSCWSSW3087-90-81 10:37:0076.1[facility] IthzeptNYFCBDVVCX6442-43-52 10:37:00 Test Item Value Reference Range Interpretation Comments MCH (test code = MCH) 23.8 pg 27.0-31.0 [facility] FhpnaagBNOXFHSGXD2581-47-38 10:37:0031.3[facility] HermannHEMATOLOGY 2020-08-29 10:37:0018.2[facility] CuuelpsESVBKOPTOC5192-89-68 10:37:22972Bzolwbdt JnabfojMKEWVCDVFI0481-40-90 10:37:007.5[facility] EjqfgaxJARKWIPGKO5418-77-88 10:37:00 Test Item Value Reference Range Interpretation Comments PT (test code = PT) 12.8 s 12.0-14.7 [facility] GqgfopbEBBIYUEZYQ0897-19-58 10:37:00 Test Item Value Reference Range Interpretation Comments INR (test code = INR) 0.97 1 0.85-1.17 [facility] YogqcuyKDFAEJHMWM6564-95-23 10:37:00 Test Item Value Reference Range Interpretation Comments PTT (test code = PTT) 25.0 s 22.9-35.8 [facility] TtgacchHVFKYYBLBH5984-96-02 10:37:0070.5[facility]annHEMATOLOGY 2020-08-29 10:37:0018.8[facility] RcrrqabJOPSMHRJRE0846-72-70 10:37:009.5[facility] XlzgpiiZYXHFWRVAX0255-00-39 10:37:000.9[facility] KuzrwogDUHJFVUIZJ3553-84-26 10:37:000.3[facility] ZfqmwlxVCUXTAAUUJ1831-40-66 10:37:004.8[facility] DHLEYWZQOX5220-62-82 10:37:001.3[facility] OzivzpdDAUZUAAWPH8431-28-42 10:37:000.6 [facility] AveunixROPQDNLESN9948-98-86 10:37:000.1[facility] HermannHEMATOLOGY 2020-08-29 10:37:001+ *ABN*(08/29/20 5:37 AM)[facility] WsvnnlzIADRLBCJIX4287-38-31 10:37:00Not Detected (08/29/20 5:37 AM)[facility]annBLOOD BANK RESULTS 2020-08-29 10:37:00Negative (08/29/20 5:37 AM)[facility] HermannCHEM AVNWR7918-30-55 10:37:63977Xoodjspz HermannCHEM PIONB1009-16-02 10:37:0028[facility] HermannCHEM MFGKK4535-75-46 10:37:001.01[facility] HermannCHEM XPGSW4220-24-04 10:37:31939 [facility]annCHEM NHQUR4142-10-19 10:37:003.8[facility] HermannCHEM PANEL 2020-08-29 10:37:79016Vqvciraa HermannCHEM BRKSR1980-50-41 10:37:0028[facility] HermannCHEM RRCVL5375-46-21 10:37:009.8[facility] HermannCHEM DQWRS4617-26-63 10:37:0011.8[facility] HermannCHEM OQGEP0383-66-42 10:37:0059[facility] HermannCHEM WHCIH8852-48-06 10:37:002.9[facility] AppdkeoAMEXRELYCN7247-40-21 10:37:006.8 [facility] QckeegrVNILIYISUA1436-80-94 10:37:004.47[facility] HermannHEMATOLOGY 2020-08-29 10:37:0010.6[facility] GzqllgpHUFHWLBJYS6907-01-01 10:37:0034.0[facility] DfeboxsOMMEJNNRGJ4572-44-44 10:37:0076.1[facility] RynvkeyRQDGBYZDJP7473-27-29 10:37:00 Test Item Value Reference Range Interpretation Comments MCH (test code = MCH) 23.8 pg 27.0-31.0 [facility] KiynavgCZUIZCBBXT5071-79-60 10:37:0031.3[facility]annHEMATOLOGY 2020-08-29 10:37:0018.2[facility] CzxelxaJHOPZELWTS0256-31-72 10:37:16330Cpiaqpcw DtczqxnTFFFFPWNQF1029-04-63 10:37:007.5[facility] RbkfmqfEPECVZFOYX1814-49-09 10:37:00 Test Item Value Reference Range Interpretation Comments PT (test code = PT) 12.8 s 12.0-14.7 [facility] BancrotZTTJGTUYSF1373-61-16 10:37:00 Test Item Value Reference Range Interpretation Comments INR (test code = INR) 0.97 1 0.85-1.17 [facility] AelmulyQGMLUGAOHH8315-09-10 10:37:00 Test Item Value Reference Range Interpretation Comments PTT (test code = PTT) 25.0 s 22.9-35.8 [facility] MotdlmnYTFQLYCXRJ3619-36-06 10:37:0070.5[facility] HermannHEMATOLOGY 2020-08-29 10:37:0018.8[facility] TnlgjcfBPGDMTTQCE8307-15-74 10:37:009.5[facility] YsdvwniEQEPGMFQNZ6862-34-13 10:37:000.9[facility] WuepvqgKWONFGTOMI4738-47-97 10:37:000.3[facility] KarwtlhVGJRNSATHU5772-58-86 10:37:004.8[facility] [place] NSJKWPMSUU6283-99-40 10:37:001.3[facility] TeqmdpiASSBERMBJJ0687-20-42 10:37:000.6 [facility] SfhngtwQPWLXIGIYP3140-61-46 10:37:000.1[facility]annHEMATOLOGY 2020-08-29 10:37:001+ *ABN*(08/29/20 5:37 AM)[facility] JhpgznnVGJCMXZCKB0003-08-76 10:37:00Not Detected (08/29/20 5:37 AM)[facility] Mikey, GC, TV,PCR, IN UCPPJ3463-98-46 15:38:00 Test Item Value Reference Range Interpretation Comments FT (test code = CHTR) Not detected (qualifier Not Detected N value) FT (test code = Not detected (qualifier Not Detected N NGONO) value) FT (test code = TRVG) Not detected (qualifier Not Detected N value) URINALYSIS WITH XAPDUXLZPWU0754-84-06 10:57:00 Test Item Value Reference Range Interpretation Comments Color (test code = UCOLR) Dk. Yellow Clarity (test code = UCLAR) Hazy Glucose (test code = UGLUC) NEGATIVE NEGATIVE N Bilirubin (test code = UBILI) NEGATIVE NEGATIVE N Ketones (test code = UKET) NEGATIVE NEGATIVE N Specific [place] (test code = 1.025 1.005-1.030 A USPGR) [...]
--- NOTE | 2022-03-08 21:49 | RAD REPORT ---
EXAM DESCRIPTION: CT - Head Brain Wo Cont - 03/08/2022 9:43 pm CLINICAL HISTORY: weakness Headache, drowsiness, CVA symptomology COMPARISON: Head Brain Wo Cont dated 02/26/2022; Head Brain Wo Cont dated 02/01/2022 TECHNIQUE: All CT scans are performed using dose optimization technique as appropriate and may inclu de automated exposure control or mA/KV adjustment according to patient size. FINDINGS: No intracranial hemorrhage, hydrocephalus or extra-axial fluid collection.Mild generalized brain atrophy is present with mild periventricular and deep white matter chronic microvascular ische izabella changes.No areas of brain edema or evidence of midline shift. The paranasal sinuses and mastoids are clear. The calvarium is intact. IMPRESSION: No acute intracranial abnormality. If there is continued clinical concern for CVA, MR imaging of the brain would be recommended.
[2022-03-08 23:02] LABS: Absolute Lymphocytes (CBC) 1.4 K/uL (0.7-4.9); Hematocrit 35.5 % (36.0-45.0); Lymphocytes % 27.5 % (15.3-44.8); MCV 91.2 fL (80-100); MPV 7.1 fL (7.6-11.3); RBC Red Blood Cell Count 3.89 M/uL (3.86-4.86)
[2022-03-08 23:07] LABS: Urine Blood Negative (Negative); Urine Glucose Negative (Negative); Urine Protein Negative (Negative); Urine Specific Gravity >=1.030 (1.005-1.030)
[2022-03-08 23:11] LABS: Protime INR 1.03
[2022-03-08 23:13] LABS: SARS-CoV-2 Antigen Rapid Res Negative (Negative)
[2022-03-08 23:14] LABS: Potassium 3.1 mmol/L (3.5-5.1)
--- NOTE | 2022-03-08 23:21 | EDPHYS ---
Physician Documentation [facility] Name: Fawn Kolb Age: 67 yrs Sex: Female : 1955 Arrival Date: 03/08/2022 Time: 20:31 Bed 11 Private MD: SHEELA Physician Ramon Baker HPI: 03/08 23:16 This 67 yrs old Female presents to ER via Wheelchair with complaints of Weakness. rn 23:16 The patient presents to the emergency department with weakness of the right upper rn extremity, that is moderate. Onset: The symptoms/episode began/occurred this morning. Context: occurred at home, occurred while the patient was at rest. Associated signs and symptoms: Pertinent positives: paresthesias, weakness, Pertinent negatives: altered mental status, fever, neck stiffness, visual field changes, loss of vision. Severity of symptoms: At their worst the symptoms were moderate in the emergency department the symptoms have resolved. Current symptoms: Currently, the patient is not experiencing any symptoms. The patient has experienced a previous episode. The patient has not recently seen a physician. Pt reports RUE weakness and numbness, began earlier today, resolved after 30 minutes. Has been having generalized weakness for weeks, seen here without clear etiology. No head injury recently per patient. Takes plavix. Has had CVA in past. . Historical: - Allergies: 21:27 Bactrim DS; kd3 21:27 butorphanol tartrate; kd3 21:27 Fentanyl; kd3 21:27 Reglan; kd3 21:27 sulfamethoxazole (bulk); kd3 21:27 Stadol; kd3 21:27 TRIMETHOPRIM; kd3 - Home Meds: 21:27 Dilaudid 4 mg Oral tab 1 tab every 6 hours [Active]; metoprolol tartrate 50 mg Oral tab kd3 1 tab 2 times per day [Active]; Plavix 75 mg Oral tab 1 tab once daily [Active]; Zoloft 100 mg Oral tab 1 tab once daily [Active]; lisinopril 10 mg Oral tab 1 tab once daily [Active]; - PMHx: 21:27 Atrial Fib; Bipolar disorder; COPD; Hypertension; Panic Attacks; Migraines; esophageal kd3 varices; Chronic pain; Anxiety; HIV; Hepatitis; - PSHx: 21:27 Appendectomy; Cholecystectomy; R wrist SX; hernia repair; Bilateral shoulder repair; kd3 - Immunization history:: Adult Immunizations up to date. - Social history:: Smoking status: Patient/guardian denies using tobacco, but has a distant history of tobacco abuse. - Family history:: not pertinent. - Hospitalizations: : No recent hospitalization is reported. ROS: 23:18 Constitutional: Negative for fever, chills, and weight loss, Eyes: Negative for injury, rn pain, redness, and discharge, Neck: Negative for injury, pain, and swelling, Cardiovascular: Negative for chest pain, palpitations, and edema, Respiratory: Negative for shortness of breath, cough, wheezing, and pleuritic chest pain, Abdomen/GI: Negative for abdominal pain, nausea, vomiting, diarrhea, and constipation, Back: Negative for injury and pain, MS/Extremity: Negative for injury and deformity, Skin: Negative for injury, rash, and discoloration, Neuro: Negative for headache, and seizure. Exam: 23:18 Constitutional: This is a well developed, well nourished patient who is awake, alert, rn and in no acute distress. Head/Face: Normocephalic, atraumatic. Eyes: Periorbital areas with no swelling, redness, or edema. Cardiovascular: Bradycardic, regular. No pulse deficits. Respiratory: No increased work of breathing, no retractions or nasal flaring. Abdomen/GI: Soft, non-tender Skin: Warm, dry MS/ Extremity: Pulses equal, no cyanosis. Neuro: Awake and alert, GCS 15, oriented to person, place, time, and situation. Cranial nerves II-XII grossly intact. Motor strength 4/5 in all extremities. No drift. Sensory grossly intact. Vital Signs: 21:22 BP 163 / 77; Pulse 50; Resp 18; Temp 98.4(O); Pulse Ox 100% on R/A; Weight 74.39 kg; kd3 Height 5 ft. 4 in. (162.56 cm); Pain 10/10; 22:45 BP 200 / 86; Pulse 51; Resp 16; Temp 98.1; Pulse Ox 99% ; Pain 10/10; jj7 23:30 Pulse 60; Resp 17; Temp 97.9; Pulse Ox 97% ; jj7 21:22 Body Mass Index 28.15 (74.39 kg, 162.56 cm) kd3 NIH Stroke Scale Scores: 21:45 NIHSS Score: 0 jj7 23:18 NIHSS Score: 0 rn MDM: 20:49 Patient medically screened. rn 21:19 ED course: Takes plavix, took today. rn 23:18 Data reviewed: vital signs, nurses notes, lab test result(s), EKG, radiologic studies, rn CT scan, and as a result, I will admit patient. Counseling: I had a detailed discussion with the patient and/or guardian regarding: the historical points, exam findings, and any diagnostic results supporting the discharge/admit diagnosis, lab results, radiology results, the need for further work-up and treatment in the hospital. Response to treatment: the patient's symptoms have resolved after treatment, the patient's condition has returned to base line, and as a result, I will admit patient. Admission orders: after a detailed discussion of the patient's condition and case, the admit orders are written by me. 23:53 ED course: After patient put up for admission, patient pulled out her IV and states she rn is leaving. Demanding pain medication for her chronic pain, pulled out IV, insists she is not staying. Understands risk of leaving with diagnosis of TIA. Takes plavix. Nursing tried to get her to stay multiple times. Pt states waiting for her outside and demands she be discharged. . 23:55 ED course: Pt never even mentioned pain when I spoke with her, only reported to nurse. .rn 03/08 21:19 Order name: CBC with Diff; Complete Time: 23:14 rn 03/08 21:19 Order name: Basic Metabolic Panel rn 03/08 21:19 Order name: Protime (+inr); Complete Time: 23:14 rn 03/08 21:19 Order name: Ptt, Activated; Complete Time: 23:14 rn 03/08 21:19 Order name: SARS RAPID; Complete Time: 23:14 rn 03/08 21:17 Order name: CT Head Brain wo Cont rn 03/08 21:19 Order name: Head Angio CT rn 03/08 21:19 Order name: Neck Angio CT rn 03/08 21:40 Order name: Head Brain Wo Cont; Complete Time: 23:14 EDMS 03/08 23:08 Order name: Urine Dipstick-Ancillary; Complete Time: 23:14 EDMS 03/08 21:19 Order name: IV Start rn 03/08 21:19 Order name: Urine Dipstick-Ancillary (obtain specimen) rn Administered Medications: 23:33 Drug: Aspirin 325 mg Route: PO; em6 03/09 00:01 Not Given (PT PULLED OUT IVv): foLIC Acid 1 mg IVPB once jj7 00:02 Not Given (PT PULLED OUT IVv): Potassium Chloride 10 mEq IV at calculated rate once; jj7 administer over 1-2 hours Disposition Summary: 03/08/22 23:54 Discharge Ordered Location: Home(03/08/22 23:54) rn Problem: new(03/08/22 23:54) rn Symptoms: have improved(03/08/22 23:54) rn Condition: Stable(03/08/22 23:54) rn Diagnosis - Transient cerebral ischemic attack, unspecified(03/08/22 23:54) rn - Weakness(03/08/22 23:54) rn Followup: rn - With: Haim Lehman MD - When: 1 - 2 days - Reason: Recheck today's complaints, Re-evaluation by your physician Discharge Instructions: - Discharge Summary Sheet rn - Stroke underwriting internship - Transient Ischemic Attack rn - Weakness rn Forms: - Medication Reconciliation Form rn - Thank You Letter rn - Antibiotic underwriting internship - Prescription Opioid Use rn NIH Stroke Scale - NIH Stroke Score Date: 03/08/2022 Time: 21:45 Total Score = 0 1a. Level of Consciousness (LOC) - 0(Alert) 1b. Level of Consciousness (LOC) (Month \T\ Age) - 0(Both) 1c. LOC Commands (Open \T\ Closes Eyes/Casting Operator Helper) - 0(Both) 2. Best Gaze (Lateral Gaze Paresis) - 0(Normal) 3. Visual Field Loss - 0(No visual loss) 4. Facial Palsy - 0(Normal) 5a. Left Arm: Motor (10-second hold) - 0(No drift) 5b. Right Arm: Motor (10-second hold) - 0(No drift) 6a. Left Leg: Motor (5-second hold - always test supine) - 0(No drift) 6b. Right Leg: Motor (5-second hold - always test supine) - 0(No drift) 7. Limb Ataxia (finger/nose \T\ heel/sanchez - test with eyes open) - 0(Absent) 8. Sensory Loss (pinprick arms/legs/face) - 0(Normal) 9. Best Language: Aphasia (description/naming/reading) - 0(No aphasia) 10. Dysarthria (speech clarity - read or repeat words) - 0(Normal) 11. Extinction and Inattention (visual/tactile/auditory/spatial/personal) - 0(No abnormality) Initials: jj7 NIH Stroke Scale - NIH Stroke Score Date: 03/08/2022 Time: 23:18 Total Score = 0 1a. Level of Consciousness (LOC) - 0(Alert) 1b. Level of Consciousness (LOC) (Month \T\ Age) - 0(Both) 1c. LOC Commands (Open \T\ Closes Eyes/Casting Operator Helper) - 0(Both) 2. Best Gaze (Lateral Gaze Paresis) - 0(Normal) 3. Visual Field Loss - 0(No visual loss) 4. Facial Palsy - 0(Normal) 5a. Left Arm: Motor (10-second hold) - 0(No drift) 5b. Right Arm: Motor (10-second hold) - 0(No drift) 6a. Left Leg: Motor (5-second hold - always test supine) - 0(No drift) 6b. Right Leg: Motor (5-second hold - always test supine) - 0(No drift) 7. Limb Ataxia (finger/nose \T\ heel/sanchez - test with eyes open) - 0(Absent) 8. Sensory Loss (pinprick arms/legs/face) - 0(Normal) 9. Best Language: Aphasia (description/naming/reading) - 0(No aphasia) 10. Dysarthria (speech clarity - read or repeat words) - 0(Normal) 11. Extinction and Inattention (visual/tactile/auditory/spatial/personal) - 0(No abnormality) Initials: rn Signatures: Dispatcher [employer] EDRamon Harrison MD MD rn Garcia, Cindy RN RN Shereen Khan RN RN kd3 Idalmis Simons RN RN em6 Benita Guerrero RN jj7 Corrections: (The following items were deleted from the chart) 03/08 23:39 23:21 Telemetry/MedSurg (observation) rn landon 23:39 23:21 rn landon 23:54 23:21 Observation rn rn 23:54 23:21 Liz Qureshi rn rn 23:54 23:21 Stable rn rn 23:54 23:21 new rn rn 23:54 23:21 are resolved rn rn 23:54 23:21 Standard rn rn 23:54 23:21 Transient cerebral ischemic attack, unspecified rn rn 23:54 23:21 Weakness rn rn 23:54 23:21 Paresthesia of skin rn rn 23:54 23:39 [facility] ER HOLD cg rn 23:54 23:39 ERHOLD- cg rn 03/09 00:04 03/08 21:40 Head angio ordered. EDMS EDMS 03/09 00:04 03/08 21:40 Neck Angio ordered. EDMS EDMS
--- NOTE | 2022-03-08 23:21 | ER ---
Nurse's Notes [facility] Name: Fawn Kolb Age: 67 yrs Sex: Female : 1955 Arrival Date: 03/08/2022 Time: 20:31 Bed 11 Private MD: Diagnosis: Transient cerebral ischemic attack, unspecified;Weakness Presentation: 03/08 21:22 Chief complaint: Patient states: I couldn't move my arm and I have a shooting pain that kd3 went up my neck. I have a lumbar disease. The weakness in my arm has gotten better and i can move it now. Coronavirus screen: Vaccine status: Patient reports receiving the 2nd dose of the covid vaccine. Ebola Screen: No symptoms or risks identified at this time. 21:22 Method Of Arrival: Wheelchair kd3 21:27 Initial Sepsis Screen: Does the patient meet any 2 criteria? No. Patient's initial kd3 sepsis screen is negative. Does the patient have a suspected source of infection? No. Patient's initial sepsis screen is negative. Risk Assessment: Do you want to hurt yourself or someone else? Patient reports no desire to harm self or others. Onset of symptoms was March 08, 2022. 21:27 Acuity: BLAYNE 3 kd3 21:30 No acute neurological deficit is noted. kd3 Triage Assessment: 21:31 The onset of the patients symptoms was March 08, 2022 at 21:31. General: Appears in kd3 no apparent distress. Behavior is calm, cooperative. Pain: Complains of pain in posterior aspect of right shoulder. Neuro: Reports weakness in right arm. Stroke Activation: Physician: Stroke Attending; Name: [email or web address]; Notified At: 21:30; Arrived At: 21:15 Physician: Chief Stroke Resident; Name: ; Notified At: 21:30; Arrived At: Physician: Stroke Resident; Name: ; Notified At: 21:30; Arrived At: Physician: ED Attending; Name: ; Notified At: 21:30; Arrived At: Physician: ED Resident; Name: ; Notified At: 21:30; Arrived At: Historical: - Allergies: 21:27 Bactrim DS; kd3 21:27 butorphanol tartrate; kd3 21:27 Fentanyl; kd3 21:27 Reglan; kd3 21:27 sulfamethoxazole (bulk); kd3 21:27 Stadol; kd3 21:27 TRIMETHOPRIM; kd3 - Home Meds: 21:27 Dilaudid 4 mg Oral tab 1 tab every 6 hours [Active]; metoprolol tartrate 50 mg Oral tab kd3 1 tab 2 times per day [Active]; Plavix 75 mg Oral tab 1 tab once daily [Active]; Zoloft 100 mg Oral tab 1 tab once daily [Active]; lisinopril 10 mg Oral tab 1 tab once daily [Active]; - PMHx: 21:27 Atrial Fib; Bipolar disorder; COPD; Hypertension; Panic Attacks; Migraines; esophageal kd3 varices; Chronic pain; Anxiety; HIV; Hepatitis; - PSHx: 21:27 Appendectomy; Cholecystectomy; R wrist SX; hernia repair; Bilateral shoulder repair; kd3 - Immunization history:: Adult Immunizations up to date. - Social history:: Smoking status: Patient/guardian denies using tobacco, but has a distant history of tobacco abuse. - Family history:: not pertinent. - Hospitalizations: : No recent hospitalization is reported. Screenin:45 Abuse screen: Denies threats or abuse. Nutritional screening: No deficits noted. jj7 Tuberculosis screening: No symptoms or risk factors identified. Fall Risk Fall in past 12 months (25 points). Secondary diagnosis (15 points) No IV (0 pts). Ambulatory Aid- None/Bed Rest/Nurse Assist (0 pts). Gait- Weak (10 pts.). Mental Status- Oriented to own ability (0 pts). Total Hauser Fall Scale indicates High Risk Score (45 or more points). Fall prevention measures have been instituted. Side Rails Up X 2 As available patient and family educated on Fall Prevention Program and Strategies. Assessment: 21:45 VAN Scoring: Arm Drift: Patients demonstrates NO arm weakness. Patient is VAN Negative. jj7 Visual Disturbance: No visual disturbance noted. Aphasia: No aphasia noted. Neglect: No neglect noted. TNKase (Tenecteplase) Screening: Indications:. General: Appears in no apparent distress. comfortable, Behavior is calm, cooperative, appropriate for age, Reports. Pain:. Neuro: No deficits noted. 23:31 Reassessment: PT STATES SHE PULLED HER IV OUT BECAUSE THE DOCTOR ISN'T GIVING HER jj7 SOMETHING FOR HR PAIN. I INFORMED HER MD ORDERED ASA AND TO ALLOW IT TIME TO WORK. PT STATES "I HAVE TRAZODONE AT HOME AND I WANT MY TO COME GET ME SO I CAN GO TAKE IT". PT INFORMED SHE IS GETTING ADMITTING STATES SHE WILL STAY NOW. CHARGE NURSE INFORMED. 23:45 The patient has not been NPO before screening. The patient is alert, and able to follow jj7 commands. The patient does not exhibit slurred or garbled speech. The patient is not exhibiting difficulty speaking. The patient does not exhibit difficulty understanding words. The patient is able to swallow own secretions with no drooling or need for suction. Patient tolerated one teaspoon of water. No drooling, immediate coughing, gurgling, or clearing of the throat was noted. The patient tolerated 90mL of water. No drooling, immediate coughing, gurgling, or clearing of the throat was noted. The patient passed the bedside swallow screening. Oral medications may be given as ordered. Contact Physician for further diet orders. Provider notified of bedside swallow screening results: Ramon Baker MD. Vital Signs: 21:22 BP 163 / 77; Pulse 50; Resp 18; Temp 98.4(O); Pulse Ox 100% on R/A; Weight 74.39 kg; kd3 Height 5 ft. 4 in. (162.56 cm); Pain 10/10; 22:45 BP 200 / 86; Pulse 51; Resp 16; Temp 98.1; Pulse Ox 99% ; Pain 10/10; jj7 23:30 Pulse 60; Resp 17; Temp 97.9; Pulse Ox 97% ; jj7 21:22 Body Mass Index 28.15 (74.39 kg, 162.56 cm) kd3 NIH Stroke Scale Scores: 21:45 NIHSS Score: 0 jj7 23:18 NIHSS Score: 0 government relations director Course: 20:31 Patient arrived in ED. ja2 20:49 Ramon Baker MD is Attending Physician. rn 21:27 Triage completed. kd3 21:31 Arm band placed on right wrist. kd3 21:45 Head Brain Wo Cont In Process Unspecified. EDMS 21:45 Patient has correct armband on for positive identification. Bed in low position. Call jjRenan light in reach. Side rails up X 1. Side rails up X2. 21:45 No provider procedures requiring assistance completed. jj7 22:35 Inserted saline lock: 22 gauge in right ,using aseptic technique. FOOT. INSERTED BY seejRenan [facility] Blood collected. 23:20 Liz Qureshi MD is Hospitalizing Provider. rn 23:30 IV discontinued, intact, bleeding controlled, No redness/swelling at site. PT PULLED jj7 OUT IV. 23:54 Haim Lehman MD is Referral Physician. rn Administered Medications: 23:33 Drug: Aspirin 325 mg Route: PO; em6 03/09 00:01 Not Given (PT PULLED OUT IVv): foLIC Acid 1 mg IVPB once jj7 00:02 Not Given (PT PULLED OUT IVv): Potassium Chloride 10 mEq IV at calculated rate once; jj7 administer over 1-2 hours Medication: 03/08 21:45 VIS not applicable for this client. jj7 Outcome: 23:21 Decision to Hospitalize by Provider. rn 23:54 Discharge ordered by . rn 03/09 00:21 Discharged to home via wheelchair, with significant other. jj7 Condition: stable Discharge instructions given to PT LEFT BEFORE SIGNING DISCHARGE PAPERWORK 00:24 Patient left the ED. jj7 NIH Stroke Scale - NIH Stroke Score Date: 03/08/2022 Time: 21:45 Total Score = 0 1a. Level of Consciousness (LOC) - 0(Alert) 1b. Level of Consciousness (LOC) (Month \\T\\ Age) - 0(Both) 1c. LOC Commands (Open \\T\\ Closes Eyes/Scheduling Agent) - 0(Both) 2. Best Gaze (Lateral Gaze Paresis) - 0(Normal) 3. Visual Field Loss - 0(No visual loss) 4. Facial Palsy - 0(Normal) 5a. Left Arm: Motor (10-second hold) - 0(No drift) 5b. Right Arm: Motor (10-second hold) - 0(No drift) 6a. Left Leg: Motor (5-second hold - always test supine) - 0(No drift) 6b. Right Leg: Motor (5-second hold - always test supine) - 0(No drift) 7. Limb Ataxia (finger/nose \\T\\ heel/sanchez - test with eyes open) - 0(Absent) 8. Sensory Loss (pinprick arms/legs/face) - 0(Normal) 9. Best Language: Aphasia (description/naming/reading) - 0(No aphasia) 10. Dysarthria (speech clarity - read or repeat words) - 0(Normal) 11. Extinction and Inattention (visual/tactile/auditory/spatial/personal) - 0(No abnormality) Initials: jj7 NIH Stroke Scale - NIH Stroke Score Date: 03/08/2022 Time: 23:18 Total Score = 0 1a. Level of Consciousness (LOC) - 0(Alert) 1b. Level of Consciousness (LOC) (Month \\T\\ Age) - 0(Both) 1c. LOC Commands (Open \\T\\ Closes Eyes/Scheduling Agent) - 0(Both) 2. Best Gaze (Lateral Gaze Paresis) - 0(Normal) 3. Visual Field Loss - 0(No visual loss) 4. Facial Palsy - 0(Normal) 5a. Left Arm: Motor (10-second hold) - 0(No drift) 5b. Right Arm: Motor (10-second hold) - 0(No drift) 6a. Left Leg: Motor (5-second hold - always test supine) - 0(No drift) 6b. Right Leg: Motor (5-second hold - always test supine) - 0(No drift) 7. Limb Ataxia (finger/nose \\T\\ heel/sanchez - test with eyes open) - 0(Absent) 8. Sensory Loss (pinprick arms/legs/face) - 0(Normal) 9. Best Language: Aphasia (description/naming/reading) - 0(No aphasia) 10. Dysarthria (speech clarity - read or repeat words) - 0(Normal) 11. Extinction and Inattention (visual/tactile/auditory/spatial/personal) - 0(No abnormality) Initials: rn Signatures: Dispatcher [employer] EDMS Ramon Baker MD MD rn Alexander, Jessica ja2 Doucette, Kyli, RN RN kd3 Idalmis Simons RN RN em6 Benita Guerrero RN RN jj7 Corrections: (The following items were deleted from the chart) 03/08 21:32 21:22 Chief complaint: Patient states: I couldn't move my arm and I have a kd3 shooting pain that went up my neck. I have a lumbar disease. kd3
[2022-03-08] MEDS ORDERED: ASPIRIN 325 MG TAB ONE (23:31)
[2022-03-09 01:13] VITALS: BP 200/86
[2022-03-09 01:14] VITALS: TEMP 97.9; O2SAT 97
== END 2022-03-09 00:24 | disposition home or self-care (01) ==
LOC: ER 20:25
DX: G45.9 Transient cerebral ischemic attack, unspecified (principal); R53.1 Weakness; I10 Essential (primary) hypertension; I48.91 Unspecified atrial fibrillation; Z79.01 Long term (current) use of anticoagulants; J44.9 Chronic obstructive pulmonary disease, unspecified; Z20.822 Contact with and (suspected) exposure to COVID-19; Z21 Asymptomatic human immunodeficiency virus [HIV] infection status; Z88.1 Allergy status to other antibiotic agents; Z88.5 Allergy status to narcotic agent; Z88.2 Allergy status to sulfonamides
CPT/HCPCS: 36415; 70450; 80048; 81003; 85025; 85610; 85730; 87811; 99284

== ENCOUNTER 2022-03-11 16:50 | Emergency (ER) | payer OTHER ==
--- OUTSIDE RECORDS SUMMARY | 2022-03-11 17:05 | XMS REPORT | Continuity of Care Document ---
:1955 Author Organization [facility] t Address [address] [place] [address] Care Team Providers Name Role Phone Urmila Rahman Primary Care Physician ELAN LIRA Attending Clinician Unavailable HEMATPOLIZ, BEVERLY Attending Clinician Unavailable SANTIAGO CARDENAS Attending Clinician Unavailable [facility] Attending Clinician Unavailable Santiago Sanchez Attending Clinician Stevo RAMIREZ, Isaias Arredondo Attending Clinician Unavailable TOMY MARIE Attending Clinician Unavailable Reilly Means MD Attending Clinician Ofe Shields MD Attending Clinician Tomy Marie MD Attending Clinician Doctor Unassigned, [place] Attending Clinician Unavailable Bill COLES Attending Clinician Unavailable Bill Rose Attending Clinician CHARITY MCALLISTER Attending Clinician Unavailable Charity Mcallister MD Attending Clinician GADIEL KOEHLER Attending Clinician Unavailable Mike Lund Attending Clinician Unavailable NIKOLAI REEVES Attending Clinician Unavailable Eliseo Arce MD Attending Clinician Carol Ann IZQUIERDO, Sarai Lieberman Attending Clinician [phone] Ashly Pelletier MA Attending Clinician Unavailable Dagoberto Bass MD Attending Clinician [place] Evangelista Attending Clinician Lab, [facility] I Attending Clinician Unavailable Devin SALGUERO, Robbi Hairston Attending Clinician Monica Rodas MA Attending Clinician Unavailable Agustina Ortiz MA Attending Clinician Unavailable Rody Maguire RN Attending Clinician Unavailable Kirit Flood MD, V. Attending Clinician HEMATPOLIZ, BEVERLY Attending Clinician Unavailable Gloria Hinojosa Attending Clinician Michael Hagen RN Attending Clinician Unavailable Vani, [facility] Attending Clinician UnavailDO PORSHA Newell Attending Clinician Unavailable Gadiel Koehler MD Attending Clinician Eveline Hansen MD Attending Clinician Eladio Colorado RN Attending Clinician Unavailable Leyda Willis Attending Clinician [phone] Stefanie Montalvo RN Attending Clinician Unavailable TOMY MARIE Admitting Clinician Unavailable Tomy Marie MD Admitting Clinician Bill COLES Admitting Clinician Unavailable Lele Rahman Admitting Clinician Unavailable Mike Lund Admitting Clinician Unavailable ELISEO ARCE Admitting Clinician Unavailable DO PORSHA STREETER Admitting Clinician Unavailable Payers Payer Name Policy Type Policy Number Effective Date Expiration Date S gabino [facility] [id number] 2012 [employer] [facility] 00:00:00 [facility] [id number] 2019 DUAL COMPLETE HMO 00:00:00 FORMERLY [facility] [id number] 2019 PLUS 00:00:00 [facility] [facility] [id number] 2019 [facility] ALICE 00:00:00 [employer] MEDICARE ADV [id number] 2019 2019 00:00:00 00:00:00 Problems Condition Condition Condition Status Onset Resolution Last Treating Co mments Source Name Details Category Date Date Treatment Clinician Date Dyspnea, Dyspnea, Disease Active Unive rs unspecifie unspecifie 02-11 it y of d type d type 00:00: [address] Gastropare Gastropare Disease Active Overview : Methodi sis sis 4-[address] 00:00: [facility] this [facility] 00 note l might be different from the original. Added automatic ally from request for surgery [id number] Dysphagia Dysphagia Disease Active Overview: Methodi 4-[address] 00:00: g of this [facility]osp[facility] 00 note l might be different from the original. Added automatic ally from request for surgery [id number] CCL / EPS CCL / EPS Diagnosis Active 2020-10-15 Memoria PVI PVI 08-19 17:07:00 l ABLATION ABLATION 00:00: Patel n W/ CARTO / W/ CARTO / 00 GA / T GA / T Active 08/19/2020 [facility] Food Food Disease Active 2019-05 Methodi [...] 2-19 ity of 30-39.9) 30-39.9) 00:00: [place] [facility] Anemia Anemia Disease Active 2014-05 Univers 0-03 ity of 00:00: [place] [facility] Hypovolemi Hypovolemi Disease Active 2014-05 U nivers a due to a due to 0-02 ity of hemorrhage hemorrhage 00:00: [place] [facility] Chest pain Chest pain Disease Active 2014-05 U nivers 0-02 ity of 00:00: [place] [facility] 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:00: [place] shoulder shoulder 00 Medica l arthroplas arthroplas Br anch ty ty Posttrauma Posttrauma Disease Active U nivers tic stress tic stress 08 it y of disorder disorder 00:00: [place] [facility] 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 00:00: [place] virus virus 00 Medical (HIV) (HIV) Branch disease disease Bipolar 2 Bipolar 2 Disease Active Uni vers disorder disorder 11-18 ity of 00:00: [place] [facility] Chronic Chronic Disease Active Univers hepatitis hepatitis 11-18 ity of C C 00:00: [place] [facility] Hypertensi Hypertensi Disease Active U nivers on on 11-18 ity of 00:00: [place] [facility] Allergies, Adverse Reactions, Alerts Allergy Allergy Status Severity Reaction(s) Onset Inactive Treating Comm ents Source Name Type Date Date Clinician sulfamet DA Active SV N/V [facility] hoxazole 1-25 Clear 00:00: Garcia 00 [facility] trimetho DA Active SV [facility] prim 1-25 Clear 00:00: Garcia 00 [facility] codeine DA Active SV N/V [facility] 1-25 Clear 00:00: Garcia 00 [facility] Metoclop Propensi Active [facility] ramide ty [...] Kidney disease [facility] Natural mother [facility] Social History Social Habit Start Date Stop Date Quantity Comments Source History SDOH [facility] Alcohol Frequency Hospita l History SDOH [facility] Alcohol Std Drinks Hospit al History SDOH [facility] Alcohol [facility] Tobacco use and 2022-02-11 2022-02-11 Former smokeless Uni versity of exposure 00:00:00 00:00:00 tobacco user [facility] [place] [facility] [place] Tobacco Comment 2022-02-11 2022-02-11 Smokes approx 1-2 Un iversity of 00:00:00 00:00:00 cigarettes per [place] Medi porfirio day when she Branch smokes Exposure to 2022-01-31 2022-02-10 Not sure [facility] SARS-CoV-2 (event) 00:00:00 22:53:00 [facility] Alcohol intake 2020-12-08 2020-12-08 Current drinker [facility] dist 00:00:00 00:00:00 of alcohol Hospital (finding) Cigarettes smoked 2020-09-05 2020-09-[address] current (pack per 00:00:00 00:00:00 Hospita l day) - Reported Cigarette 2020-09-05 2020-09-05 [facility] pack-years 00:00:00 00:00:00 Hospital Alcohol Comment 2016-09-23 2016-09-23 rare [facility] 00:00:00 00:00:00 Hospital History of tobacco 2011-09-29 User of smokeless University of use 00:00:00 tobacco [facility] Sex Ass[birth year] At [birth year] [facility] 00:00:00 00:00:00 Smoking Status Start Date Stop Date Source Ex-smoker 2022-02-11 00:00:00 2022-02-11 00:00:00 Universi ty of [facility] Medications Ordered Filled Start Stop Current Ordering Indication Dosage Frequency Signature Comments Components Source Medication Medication Date Date Medication? Clinician (SIG) Name Name zoster 2021-05- Yes [id number] .5mL 0.5 mL by Univers vaccine, 0-14 10-15 9104 Intramuscu ity of recombinant 00:00: 04:59 lar route [place] (SHINGRIX, 00 :00 once now Medic al [...] o f 1 mg tablet 19:28: at [place] [address] bedtime. Medical Branch traZODone 2-0 Yes 50mg Take 50 mg Un amtt 100 mg 9-27 by mouth ity of tablet 19:28: at [place] [address] bedtime. Medical Branch hydralAZINE 2021-0 Yes 25mg Take 25 mg Univers (APRESOLINE 9- by mouth ity of ) 25 mg [...] 100 mg 04 (two) Medical tablet times [place] daily. amLODIPine 2021-0 Yes 10mg Take 10 mg U nivers (NORVASC) 9- by mouth ity of 10 mg 19:28: daily. [place] tablet 04 Medical Branch clonazePAM 2021-0 Yes 1mg Take 1 mg Un matt (KLONOPIN) 9-27 by mouth ity o f 1 mg tablet 19:28: at [place] [address] bedtime. Medical Branch traZODone 2-0 Yes 50mg Take 50 mg Un matt 100 mg 9-27 by mouth ity of tablet 19:28: at [place] [address] bedtime. Medical Branch hydralAZINE 2-0 Yes 25mg Take 25 mg Univers (APRESOLINE 9-27 by mouth ity of ) 25 mg 19:28: daily. [place] tablet 04 Medical Branch lisinopril 2-0 Yes 40mg Take 40 mg U nivers (PRINIVIL,Z 9-27 by mouth 2 it y of ESTRIL) 40 19:28: (two) [place] mg tablet 04 times Medical daily. Branch metoprolol Yes 100mg Take 100 Un matt tartrate 9-27 mg by ity of (LOPRESSOR) 19:28: mouth 2 [place] as 100 mg 04 (two) Medical tablet times [place] daily. amLODIPine Yes 10mg Take 10 mg U nivers (NORVASC) 9-27 by mouth ity of 10 mg 19:28: daily. [place] tablet 04 Medical Branch clonazePAM 0 Yes 1mg Take 1 mg Un matt (KLONOPIN) 02-16 by mouth ity o f 1 mg tablet 19:28: at [place] [address] bedtime. Medical Branch traZODone Yes 50mg Take 50 mg Un matt 100 mg - by mouth ity of tablet 19:28: at [place] [address] bedtime. Medical Branch cefpodoxime 0 2021- Yes [id number] 200mg Take 1 Univers 200 mg 02-16 tablet by ity of tablet 00:00: 04:59 mouth in [place] 00 :00 the Medical morning Branch and 1 tablet in the evening. Do all this for 3 days. cefpodoxime 2021- Yes [id number] 200mg Take 1 Univers 200 mg 02-16 tablet by ity of tablet 00:00: 04:59 mouth in [place] 00 :00 the Medical morning Branch and 1 tablet in the evening. Do all this for 3 days. haloperidol 2021- No 2mg 2 mg, Slow Univers lactate 02-15 IV Push, ity of (HALDOL) 09:00: 09:12 ONCE, 1 [place] injection 2 00 :00 dose, On Medi porfirio mg Mon Branch 02/15/22 at 0400, Routine hydroCHLORO Yes 25mg 25 mg, Univ ers thiazide -25 Oral, ity of (ESIDRIX) 14:00: DAILY, [place] capsule 25 00 First dose Med ical mg on Sun Branch 02/14/22 at 0900, Until Discontinu ed, Routine butalbital- Yes 1{tbl} 1 tablet, Univers acetaminoph 02-13 Oral, ity of en-caff 18:46: Q6HPRN, [place] (ESGIC) 06 Starting Medical 50-325-40 on Sat [...] mg 19:00: First dose [place] 00 on Tue02/12/22 at Branch 1400, Until Discontinu ed, Routine [...] at 1536, Routine, Pain (scale 7-10) cefTRIAXone 2021-2021- No 2000mg 2,000 mg, Univers (ROCEPHIN) 02-12 IV ity of 2,000 mg in 17:00: 18:24 Piggyback, [place] NaCl 0.9% 00 :00 Q24H ABX, Medic [...] dose [place] mg 00 (after Medical last modificati on) on Tue02/12/22 at 0915, Until [...] at 1700, Until Discontinu ed, Routine aspirin 2021- No 325mg 325 mg, Unive rs E.C. [...] Until Discontinu ed, Routine, Chest pain cloNIDine 0 Yes .1mg 0.1 mg, Unive rs (CATAPRES) 02-11 Oral, ity of tablet 0.1 21:18: TIDPRN, [place] mg 37 Starting Medical on Tue Branch 02/11/22 at 1618, Until Discontinu ed, Routine, SBP > 170 nystatin-tr 2022-0 Yes Topical, Un matt iamcinolone 02-11 TID, First it y of (MYCOLOG) 19:00: dose on [place] cream [facility] Medical 02/11/22 at Branch 1400, Until Discontinu ed, Routine busPIRone 2022-0 Yes 30mg 30 mg, Univer s (BUSPAR) 02-11 Oral, BID, ity o f tablet 30 18:00: First dose [place] mg 00 on [facility] 02/11/22 at Branch 1300, Until Discontinu ed, Routine raltegravir 202-0 Yes 400mg 400 mg, Un matt (ISENTRESS) 02-11 Oral, BID, it y of tablet 400 18:00: First dose [place] mg 00 on [facility] 02/11/22 at Branch 1300, Until Discontinu ed, JOE metoprolol 202-0 Yes 100mg 100 mg, Uni vers tartrate 02-11 Oral, BID, ity o f (LOPRESSOR) 18:00: First dose [place] tablet 100 00 on [facility] mg 02/11/22 at Branch 1300, Until Discontinu ed, Routine lisinopriL 202-0 Yes 40mg 40 mg, Unive rs (PRINIVIL,Z 02-11 Oral, BID, it y of ESTRIL) 18:00: First dose [place] tablet 40 00 on [facility] mg 02/11/22 at Branch 1300, Until Discontinu ed, Routine emtricitabi 202-0 Yes 1{tbl} 1 tablet, Univers ne-tenofovi 02-11 Oral, ity of r alafen 18:00: DAILY, [place] (DESCOVY) First dose Medi porfirio tablet 1 on [facility] tablet 02/11/22 at 1300, Until Discontinu ed, Routine ipratropium 2021-0 Yes .5mg 0.5 mg, Uni vers (ATROVENT) 02-11 Inhalation ity of 0.02 % 17:57: , QIDPRN, [place] nebulizer 10 Starting Medica l solution on [facility] Branch 0.5 mg 02/11/22 at 1257, Until Discontinu ed, Routine, Wheezing, Shortness of Breath amLODIPine 2021-0 Yes 10mg 10 mg, Unive rs (NORVASC) 02-11 Oral, ity of tablet 10 17:30: DAILY, [place] mg 00 First dose Medical (after Branch last modificati on) on [facility] 02/11/22 at 1230, Until Discontinu ed, Routine hydrALAZINE 2021- No 25mg 25 mg, Uni vers (APRESOLINE 02-11 Oral, ity of ) tablet 25 17:30: 12:54 DAILY, [place] mg 00 :55 First dose Medical (after Branch last modificati on) on [facility] 02/11/22 at 1230, Until Discontinu ed, Routine HYDROcodone 2021- No 1{tbl} 1 tablet, Univers -acetaminop 02-11 Oral, ity of hen (NORCO 14:11: 17:37 Q6HPRN, [place] 5) 5-325 mg 03 :24 Starting Medi porfirio tablet 1 on [facility] Branch tablet 02/11/22 at 0911, Until Tue02/12/22 at 1237, Routine, Pain (scale 7-10) melatonin Yes 3mg 3 mg, Univers (MELATIN) 02-11 Oral, ity of tablet 3 mg 14:08: QHSPRN, [place] 17 Starting Medical on [facility] Branch 02/11/22 at 0908, Until Discontinu ed, Routine, Insomnia acetaminoph 2021- No 1{tbl} 1 tablet, Univers en-codeine 02-11 Oral, ity of (TYLENOL 14:06: 17:37 Q6HPRN, [place] #3) 300-30 19 :24 Starting Medic al mg tablet 1 on [facility] Branch tablet 02/11/22 at 0906, Until Tue02/12/22 at 1237, Routine, Pain (scale 4-6) sennosides- Yes 1{tbl} 1 tablet, Univers docusate 02-11 Oral, ity of sodium 14:06: QDAILYPRN, [place] (SENOKOT-S) 09 Starting Medi porfirio 8.6-50 mg on [facility] Branch per tablet 02/11/22 at 1 tablet 0906, Until Discontinu ed, Routine, Constipati on ondansetron Yes 4mg 4 mg, Slow Univers (ZOFRAN 02-11 IV Push, ity of (PF)) 14:05: Q6HPRN, [place] injection 4 59 Starting Medi porfirio mg on [place] Branch 02/11/22 at 0905, Until Discontinu ed, Routine, Nausea and Vomiting (N/V) acetaminoph 2021-0 Yes 650mg 650 mg, Un matt en 02-11 Oral, ity of (TYLENOL) 14:04: Q6HPRN, [place] tablet 650 37 Starting Medic al mg [...] ity of ) 25 mg 09:10: daily. [place] tablet 54 Medical Branch amLODIPine 0 Yes 10mg Take 10 mg U nivers (NORVASC) 02-11 by mouth ity of 10 mg 09:10: daily. [facility] 54 [facility] Branch piperacilli 0 2021- No 3.375g [...] therapy: 72 hours iopamidol 2021-0 2- No [id number] 60mL 60 mL, Univers (ISOVUE 02-11 Intravenou [...] 00 :00 dose, On Medic al mg [facility] Branch 02/11/22 at 0015, JOE emtricitabi 0 Yes [id number] Take one Univers ne-tenofovi 9-12 po daily ity of r alafen 00:00: [place] (DESCOVY) 00 Medical tablet Branch emtricitabi 0 Yes [id number] Take one Univers ne-tenofovi 9-12 po daily ity of r alafen 00:00: [place] (DESCOVY) 00 Medical tablet Branch emtricitabi 0 Yes [id number] Take one Univers ne-tenofovi 9-12 po daily ity of r alafen 00:00: [place] (DESCOVY) 00 Medical tablet Branch emtricitabi Yes [id number] Take one Univers ne-tenofovi 9-12 po daily ity of r alafen 00:00: [place] (DESCOVY) 00 Medical tablet Branch naproxen 2021-0 Yes [id number] 500mg Take 1 U nivers (NAPROSYN) 7-24 tablet by ity of 500 mg 00:00: mouth in [place] tablet 00 the Medical morning Branch and 1 tablet in the evening. Take with meals. methocarbam 2021-0 Yes [id number] 500mg Take 1 Univers oL 500 mg 7-24 tablet by ity o f tablet 00:00: mouth 4 [place] 00 (four) Medical times Branch daily. naproxen 2021-0 Yes [id number] 500mg Take 1 U nivers (NAPROSYN) 7-24 tablet by ity of 500 mg 00:00: mouth in [place] tablet 00 the Medical morning Branch and 1 tablet in the evening. Take with meals. methocarbam 2021-0 Yes [id number] 500mg Take 1 Univers oL 500 mg 7-24 tablet by ity o f tablet 00:00: mouth 4 [place] 00 (four) Medical times Branch daily. naproxen 2021-0 Yes [id number] 500mg Take 1 U nivers (NAPROSYN) 7-24 tablet by ity of 500 mg 00:00: mouth in [place] tablet 00 the Medical morning Branch and 1 tablet in the evening. Take with meals. methocarbam 2021-0 Yes [id number] 500mg Take 1 Univers oL 500 mg 7-24 tablet by ity o f tablet 00:00: mouth 4 [place] 00 (four) Medical times Branch daily. esomeprazol 2021- No 40mg Take 40 mg Univers e (NEXIUM) 11-20 by mouth 2 it y of 40 mg 09:12: 00:00 (two) [place] capsule 03 :00 times Medical daily. Branch amiodarone 2021- No 100mg Take 100 U nivers 100 mg 11-20 mg by ity of tablet 09:11: 00:00 mouth [place] 57 :00 daily. Medical Branch apixaban 2021- No 5mg Take 5 mg Uni vers (ELIQUIS) 5 11-20 by mouth 2 i ty of mg tablet 09:11: 00:00 (two) [place] 35 :00 times Medical daily. Branch traZODONE 2021- No Take by [facility] ers (DESYREL) 11-20 mouth at ity o f 10 mg/mL 09:10: 00:00 [place]time. [place] oral 28 :00 Medical suspension Branch hydralAZINE Yes 25mg Take 25 mg Univers (APRESOLINE 11-20 by mouth ity of ) 25 mg 08:47: daily. [place] tablet 47 Medical Branch cephALEXin 2021- No [id number] 500mg Take 1 Univers (KEFLEX) 10-24 capsule [...] 7-10). Indication s: acute pain buPROPion Yes [id number] 150mg Take 1 U nivers XL 4-12 tablet by ity of (WELLBUTRIN 00:00: mouth [place] XL) 150 mg 00 daily. Medical 24 hr Branch tablet busPIRone Yes [id number] 30mg Take 1 Un matt 30 mg 4-12 tablet by ity of tablet 00:00: mouth 2 00 (two) Medical times Branch daily. SERTraline Yes [id number] 200mg Take 2 Univers 100 mg 4-12 tablets by ity of tablet 00:00: mouth [place] 00 daily. Medical Branch buPROPion Yes [id number] 150mg Take 1 U nivers XL 4-12 tablet by ity of (WELLBUTRIN 00:00: mouth [place] XL) 150 mg 00 daily. Medical 24 hr Branch tablet busPIRone Yes [id number] 30mg Take 1 Un matt 30 mg 4-12 tablet by ity of tablet 00:00: mouth 2 [place] 00 (two) Medical times Branch daily. SERTraline Yes [id number] 200mg Take 2 Univers 100 mg 4-12 tablets by ity of tablet 00:00: mouth [place] 00 daily. Medical Branch buPROPion 2021-0 Yes [id number] 150mg Take 1 U nivers XL 4-12 tablet by ity of (WELLBUTRIN 00:00: mouth [place] XL) 150 mg 00 daily. Medical 24 hr Branch tablet busPIRone 2021-0 Yes [id number] 30mg Take 1 Un matt 30 mg 4-12 tablet by ity of tablet 00:00: mouth 2 [place] 00 (two) Medical times Branch daily. SERTraline 2021-0 Yes [id number] 200mg Take 2 Univers 100 mg 4-12 tablets by ity of tablet 00:00: mouth [place] 00 daily. Medical Branch buPROPion 2021-0 Yes [id number] 150mg Take 1 U nivers XL 4-12 tablet by ity of (WELLBUTRIN 00:00: mouth [place] XL) 150 mg 00 daily. Medical 24 hr Branch tablet busPIRone 2021-0 Yes [id number] 30mg Take 1 Un matt 30 mg 4-12 tablet by ity of tablet 00:00: mouth 2 [place] 00 (two) Medical times Branch daily. SERTraline 2021-0 Yes [id number] 200mg Take 2 Univers 100 mg 4-12 tablets by ity of tablet 00:00: mouth [place] 00 daily. Medical Branch buPROPion 2021-0 Yes [id number] 150mg Take 1 U nivers XL 4-12 tablet by ity of (WELLBUTRIN 00:00: mouth [place] XL) 150 mg 00 daily. Medical 24 hr Branch tablet busPIRone 2021-0 Yes [id number] 30mg Take 1 Un matt 30 mg 4-12 tablet by ity of tablet 00:00: mouth 2 [place] 00 (two) Medical times Branch daily. SERTraline 2021-0 Yes [id number] 200mg Take 2 Univers 100 mg 4-12 tablets by ity of tablet 00:00: mouth [place] 00 daily. Medical Branch raltegravir 2021-0 Yes [id number] 400mg Take 1 Univers (ISENTRESS) 3-28 tablet by ity of 400 mg 00:00: mouth 2 [place] tablet 00 (two) Medical times Branch daily. raltegravir 2021-0 Yes [id number] 400mg Take 1 Univers (ISENTRESS) 3-28 tablet by ity of 400 mg 00:00: mouth 2 [place] tablet 00 (two) Medical times Branch daily. raltegravir 2021-0 Yes [id number] 400mg Take 1 Univers (ISENTRESS) 3-28 tablet by ity of 400 mg 00:00: mouth 2 [place] tablet 00 (two) Medical times Branch daily. raltegravir 2021-0 Yes [id number] 400mg Take 1 Univers (ISENTRESS) 3-28 tablet by ity of 400 mg 00:00: mouth 2 [place] tablet 00 (two) Medical times Branch daily. raltegravir 0 Yes [id number] 400mg Take 1 Univers (ISENTRESS) 3-28 tablet by ity of 400 mg 00:00: mouth 2 [place] tablet 00 (two) Medical times Branch daily. LORazepam 1 2021- No [id number] 1mg Take 1 Univers mg tablet 3-10 [...] times a tablet day. emtricitabi 2021- No [id number] Take one Univers ne-tenofovi 1-20 09-12 po daily ity of r alafen 00:00: 00:00 [place] (DESCOVY) 00 :00 Medical tablet Branch metoprolol 0 Yes [id number] Take 1 [place] tartrate 7-26 tablet Health (Lopressor) 00:00: (100 mg 100 MG 00 total) by tablet mouth 2 (two) times a day AND 0.5 tablets (50 mg total) every night. metoprolol Yes [id number] Take 1 [place] tartrate 7-26 tablet Health [...] Take 2 mg Met hodi (ATIVAN) 2 - by mouth st MG tablet 10:51: nightly [...] area in groin) hydrALAZINE 0 Yes 50mg Q.[id number] Take 50 mg Methodi (APRESOLINE 7-19 [id number] mouth [address] ) 50 MG [...] area in groin) hydrALAZINE 0 Yes 50mg Q.[id number] Take 50 mg [facility]i (APRESOLINE 7-19 [id number] [address] mouth 3 st ) 50 MG [...] (affected area in groin) hydrALAZINE Yes 50mg Q.[id number] Take 50 mg Methodi (APRESOLINE 7-19 [id number] mouth 3 [address] ) 50 MG [...] area in groin) hydrALAZINE 0 Yes 50mg Q.[id number] Take 50 mg [facility]i (APRESOLINE 7-19 [id number] mouth 3 st ) 50 MG [...] area in groin) hydrALAZINE 0 Yes 50mg Q.[id number] Take 50 mg Methodi (APRESOLINE 7-19 [id number] [address] mouth [address] ) 50 MG [...] 10:51: daily. Hospita tablet 25 l LORAZepam 2021-0 Yes 2mg QD Take 2 mg Met [...] (affected area in groin) hydrALAZINE Yes 50mg Q.[id number] Take 50 mg Methodi (APRESOLINE 7-19 [id number] mouth 3 [address] ) 50 MG [...] (affected area in groin) hydrALAZINE Yes 50mg Q.[id number] Take 50 mg [facility]i (APRESOLINE 7-19 [id number] by mouth 3 st ) 50 MG [...] area in groin) hydrALAZINE 0 Yes 50mg Q.[id number] Take 50 mg Methodi (APRESOLINE 7-19 [id number] [address] mouth 3 [address] ) 50 MG [...] (affected area in groin) hydrALAZINE Yes 50mg Q.[id number] Take 50 mg Methodi (APRESOLINE 7-19 [id number] mouth 3 [address] ) 50 MG [...] (affected area in groin) hydrALAZINE Yes 50mg Q.[id number] Take 50 mg [facility]i (APRESOLINE 7-19 [id number] [address] mouth [address] ) 50 MG [...] mouth Hospita tablet 25 daily. l lisinopril 2020-0 Yes 40mg Q.5D Take 40 [...] area in groin) hydrALAZINE 2020-0 Yes 50mg Q.[id number] Take 50 mg Methodi (APRESOLINE 7-19 [id number] mouth [address] ) 50 MG [...] Hospita tablet 25 daily. l nystatin-tr Yes [id number] Apply to [facility] iainolone 7-06 area(s) 3 ity of cream 00:00: (three) [place] 00 times Medical daily. Branch nystatin-tr 2020-0 Yes [id number] Apply to [facility] iainolone 7-06 area(s) 3 ity of cream 00:00: (three) [place] 00 times Medical daily. Branch nystatin-tr 2020-0 Yes [id number] Apply to [facility] iamcinolone 7-06 area(s) 3 ity of cream 00:00: (three) [place] 00 times Medical daily. Branch nystatin-tr 2020-0 Yes [id number] Apply to [facility] iainolone 7-06 area(s) 3 ity of cream 00:00: (three) [place] 00 times Medical daily. Branch nystatin-tr 2020-0 Yes [id number] Apply to [facility] iainolone 7-06 area(s) 3 ity of cream 00:00: (three) [place] 00 times Medical daily. Branch budesonide- 0 2021- No 1{puff} QD Inhale 1 Methodi formoteroL 6-25 06-[address] (SYMBICORT) 14:37: 00:00 morning. H ospita 160-4.5 02 :00 l mcg/actuati on inhaler hydrALAZINE 0 Yes [id number] 50mg Q.[id number] Take 1 [facility] (Apresoline 6-11 [id number] tablet (50 Health ) 50 MG 00:00: 3D mg total) tablet 00 by mouth 3 (three) times a day. hydrALAZINE Yes [id number] 50mg Q.[id number] Take 1 [facility] (Apresoline 6-11 [id number] tablet (50 Health ) 50 MG 00:00: [...] % 00:00: ointment 00 nystatin 2020- No [id number] Q.25D Take 5 mL Methodi (MYCOSTATIN 10-06 (500,000 st ) 100,000 00:00: 04:59 Units Hospit a unit/mL 00 :00 total) by l suspension mouth 4 (four) times a day for 14 days. Swish in mouth sucralfate 2020- No 1g Q.25D Take 10 mL [facility] (Carafate) 10-0628 ([address] 100 mg/mL 00:00: 04:59 [...] ia 4-10 (Same as: l 14:00: Zoloft) [place] 00 Sertraline No Notes: Memor ia 4-10 (Same as: l 14:00: Zoloft) pantoprazol No Notes: Caesar lisa e 4-10 Tablet l 14:00: should not [place] 00 be chewed or crushed. (Same as: [...] e 4-10 Tablet l 14:00: should not [place] 00 be chewed or crushed. (Same as: Protonix) Amiodarone No Notes: Memor ia 4-10 (Same as: l 14:00: Cordarone) [place] 00 Amlodipine No Notes: Memor ia 4-10 (Same as: l 14:00: Norvasc) [place] 00 emtricitabi No Notes: Caesar lisa ne 200 MG / 4-10 (Same as: l tenofovir 14:00: Descovy) Herm ariel alafenamide 00 Non-formul 25 MG Oral nancy Tablet [Descovy] Sertraline No Notes: Memor ia 4-10 (Same as: l 14:00: Zoloft) [place] 00 pantoprazol No Notes: Caesar lisa e 4-10 Tablet l 14:00: should not Marty 00 be chewed or crushed. (Same as: Protonix) Amiodarone No Notes: Memor ia 4-10 (Same as: l 14:00: Cordarone) [place] Amlodipine No Notes: Memor ia 4-10 (Same as: l 14:00: Norvasc) Marty emtricitabi No Notes: Caesar lisa ne 200 MG / 4-10 (Same as: l tenofovir 14:00: Descovy) Herm ariel alafenamide 00 Non-formul 25 MG Oral nancy Tablet [Descovy] Sertraline No Notes: Memor ia 4-10 (Same as: l 14:00: Zoloft) [place] pantoprazol No Notes: Caesar lisa e 4-10 Tablet l 14:00: should not [place] 00 be chewed or crushed. (Same as: [...] ia 4-10 (Same as: l 14:00: Zoloft) [place] pantoprazol No Notes: Caesar lisa e 4-10 Tablet l 14:00: should not Marty 00 be chewed or crushed. (Same as: Protonix) Amiodarone No Notes: Memor ia 4-10 (Same as: l 14:00: Cordarone) [place] Amlodipine No Notes: Memor ia 4-10 (Same as: l 14:00: Norvasc) Marty emtricitabi No Notes: Caesar lisa ne 200 MG / 4-10 (Same as: l tenofovir 14:00: Descovy) Herm ariel alafenamide 00 Non-formul 25 MG Oral nancy Tablet [Descovy] Sertraline No Notes: Memor ia 4-10 (Same as: l 14:00: Zoloft) [place] pantoprazol No Notes: Caesar lisa e 4-10 Tablet l 14:00: should not [place] 00 be chewed or crushed. (Same as: Protonix) Amiodarone No Notes: Memor ia 4-10 (Same as: l 14:00: Cordarone) Marty 00 Sucralfate No Notes: Susan Corbin emoria 4-10 interfere l 02:00: w/enteral [place] 00 feeds - Take 1 hr before [...] Memoria 4-10 Same as: l 02:00: Eliquis [place] Hydralazine No Notes: Caesar lisa Hydrochlori 4-10 (Same as: l de 50 MG 02:00: Apresoline Her mitchell Oral Tablet 00 ) May interfere w/enteral feedings Take With Food Sucralfate No Notes: May M emoria 4-10 interfere l 02:00: w/enteral [place] 00 feeds - Take 1 hr before or 2 hr after antacids, dairy pdt, meals & minerals - On empty stomach. For patients unable to swallow tablet, dissolve in 10mL - 30mL of water or juice and stir before giving. (Same As: Carafate) Saline No Notes: Memoria Flush 0.9% 4-10 (Same as: l 02:00: BD [place] 00 Posiflush) Eliquis No Notes: Memoria 4-10 Same as: l 02:00: Eliquis [place] Hydralazine No Notes: Caesar lisa Hydrochlori 4-10 [...] 0.9% 4-10 (Same as: l 02:00: BD [place] 00 Posiflush) Eliquis No Notes: Memoria 4-10 Same as: l 02:00: Eliquis Marty 00 Hydralazine No Notes: Caesar lisa Hydrochlori 4-10 (Same as: l de 50 MG 02:00: Apresoline Her mitchell Oral Tablet 00 ) May interfere w/enteral feedings Take With Food Sucralfate No Notes: May M emoria 4-10 interfere l 02:00: w/enteral [place] 00 feeds - Take 1 hr before [...] M emoria 4-10 interfere l 02:00: w/enteral [place] 00 feeds - Take 1 hr before [...] Memoria 4-10 Same as: l 02:00: Eliquis [place] 00 Hydralazine No Notes: Caesar lisa Hydrochlori [...] 0.9% 4-10 (Same as: l 02:00: BD [place] Posiflush) Eliquis No Notes: Memoria 4-10 Same [...] not exceed l #3 00:12: 4gm/day of [place] acetaminop hen. (Same as: Tylenol with Codeine # 3) acetaminoph No Notes: Do M emoria en-codeine 4-10 not exceed l #3 00:12: 4gm/day of [place] acetaminop hen. (Same as: Tylenol with Codeine # 3) acetaminoph No Notes: Do M emoria en-codeine 4-10 not exceed l #3 00:12: 4gm/day of Marty acetaminop hen. (Same as: Tylenol with Codeine # 3) acetaminoph No Notes: Do M emoria en-codeine 4-10 not exceed l #3 00:12: 4gm/day of [place] acetaminop hen. (Same as: Tylenol with Codeine # 3) Buspirone No Notes: Memori a 4-09 (Same As: l 22:00: BuSpar) Lisinopril No 40 mg, 1 Mem oria 4- tab, l 22:00: Route: PO, [place] Drug form: TAB, BID, Dosing Weight 97.273, [...] oria 4- tab, l 22:00: Route: PO, [place] 00 Drug form: TAB, BID, Dosing Weight 97.273, kg, Start date: 08/29/20 17:00:00 CDT, Duration: 30 day, Stop date: 09/28/20 9:00:00 CDT metoprolol 1-0 No 100 mg, 1 Me moria tartrate -09 tab, l 22:00: Route: PO, [place] 00 Drug form: TAB, BID, Dosing Weight 97.273, kg, Start date: 08/29/20 17:00:00 CDT, Duration: 30 day, Stop date: 09/28/20 9:00:00 CDT Buspirone 2020-0 No Notes: Memori a 08-29 (Same As: l 22:00: BuSpar) Raltegravir 2020-0 No 400 mg, 1 M emoria 400 MG Oral - tab, l Tablet 22:00: Route: PO, Skylar bahena [ISENTRESS] Drug form: TAB, BID, Dosing Weight [...] tartrate 4-09 tab, l 22:00: Route: PO, [place] 00 Drug form: TAB, BID, Dosing Weight [...] oria 4-09 tab, l 22:00: Route: PO, [place] 00 Drug form: TAB, BID, Dosing Weight [...] oria - tab, l 22:00: Route: PO, [place] 00 Drug form: TAB, BID, Dosing Weight 97.273, kg, Start date: 08/29/20 17:00:00 CDT, Duration: 30 day, Stop date: 09/28/20 9:00:00 CDT metoprolol 1-0 No 100 mg, 1 Me moria tartrate 4-09 tab, l 22:00: Route: PO, [place] 00 Drug form: TAB, BID, Dosing Weight [...] oria 4- tab, l 22:00: Route: PO, [place] Drug form: TAB, BID, Dosing Weight 97.273, kg, Start date: 08/29/20 17:00:00 CDT, Duration: 30 day, Stop date: 09/28/20 9:00:00 CDT metoprolol No 100 mg, 1 Me moria tartrate 4- tab, l 22:00: Route: PO, [place] 00 Drug form: TAB, BID, Dosing Weight [...] Notes: Memoria 4-09 (Same l 17:07: as:MORPhin [place] 00 e Sulfate) Morphine No Notes: Memoria 4-09 (Same l 17:07: as:MORPhin Marty 00 e Sulfate) Morphine No Notes: Memoria 4-09 (Same l 17:07: as:MORPhin Marty 00 e Sulfate) Morphine No Notes: Memoria 4-09 (Same l 17:07: as:MORPhin [place] 00 e Sulfate) Morphine No Notes: Memoria 4-09 (Same l 17:07: as:MORPhin [place] 00 e Sulfate) Morphine No Notes: Memoria 4-09 (Same l 17:07: as:MORPhin [place] 00 e Sulfate) Morphine 2020-0 No Notes: [...] 30 tab, 0 coated Refill(s), tablet Pharmacy: [facility], 162.56, cm, 08/29/20 5:30:00 CDT, Height, 97.273, kg, 08/29/20 5:30:00 CDT, Weight pantoprazol 2020-0 Yes 40 mg = 1 M emoria e 40 mg 4-09 tab, PO, l oral 15:27: Daily, # Marty enteric 00 30 tab, 0 coated Refill(s), tablet Pharmacy: [facility], 162.56, cm, 08/29/20 5:30:00 CDT, Height, 97.273, kg, 08/29/20 5:30:00 CDT, Weight pantoprazol 2020-0 Yes 40 mg = 1 M emoria e 40 mg 4-09 tab, PO, l oral 15:27: Daily, # [place] enteric 00 30 tab, 0 coated Refill(s), tablet Pharmacy: [facility], 162.56, cm, 08/29/20 5:30:00 CDT, Height, 97.273, kg, 08/29/20 5:30:00 CDT, Weight pantoprazol 2020-0 Yes 40 mg = 1 M emoria e 40 mg 4-09 tab, PO, l oral 15:27: Daily, # [place] enteric 00 30 tab, 0 coated Refill(s), tablet Pharmacy: [facility], 162.56, cm, 08/29/20 5:30:00 CDT, Height, 97.273, kg, 08/29/20 5:30:00 CDT, Weight pantoprazol 2020-0 Yes 40 mg = 1 M emoria e 40 mg 4-09 tab, PO, l oral 15:27: Daily, # Marty enteric 00 30 tab, 0 coated Refill(s), tablet Pharmacy: [facility], 162.56, cm, 08/29/20 5:30:00 CDT, Height, 97.273, kg, 08/29/20 5:30:00 CDT, Weight pantoprazol 2020-0 Yes 40 mg = 1 M emoria e 40 mg 4-09 tab, PO, l oral 15:27: Daily, # Marty enteric 00 30 tab, 0 coated Refill(s), tablet Pharmacy: [facility], 162.56, cm, 08/29/20 5:30:00 CDT, Height, 97.273, kg, 08/29/20 5:30:00 CDT, Weight pantoprazol 2020-0 Yes 40 mg = 1 M emoria e 40 mg 4-09 tab, PO, l oral 15:27: Daily, # [place] enteric 00 30 tab, 0 coated Refill(s), tablet Pharmacy: [facility], 162.56, cm, 08/29/20 5:30:00 CDT, [...] Skylar nn 00 tab, 0 Refill(s), Pharmacy: [facility], 162.56, cm, 08/29/20 5:30:00 CDT, Height, 97.273, kg, 08/29/20 5:30:00 CDT, Weight pantoprazol 2020-0 No 40 mg = 1 M emoria e 40 mg 4-09 tab, PO, l oral 15:26: Daily, # [place] enteric 00 30 tab, 0 coated Refill(s) tablet sucralfate 2020-0 Yes 1 gm = 1 Mem oria 1 g oral 4-09 tab, PO, l tablet 15:26: Q12H, # 28 Skylar nn 00 tab, 0 Refill(s), Pharmacy: [facility], 162.56, cm, 08/29/20 5:30:00 CDT, Height, 97.273, kg, 08/29/20 5:30:00 CDT, Weight pantoprazol 2020-0 No 40 mg = 1 M emoria e 40 mg 4-09 tab, PO, l oral 15:26: Daily, # [place] enteric 00 30 tab, 0 coated Refill(s) tablet sucralfate 2020-0 Yes 1 gm = 1 Mem oria 1 g oral 4-09 tab, PO, l tablet 15:26: Q12H, # 28 Skylar nn 00 tab, 0 Refill(s), Pharmacy: [facility], 162.56, cm, 08/29/20 5:30:00 CDT, [...] Skylar nn 00 tab, 0 Refill(s), Pharmacy: [facility], 162.56, cm, 08/29/20 5:30:00 CDT, Height, 97.273, kg, 08/29/20 5:30:00 CDT, Weight pantoprazol 2020-0 No 40 mg = 1 M emoria e 40 mg 4-09 tab, PO, l oral 15:26: Daily, # [place] enteric 00 30 tab, 0 coated Refill(s) tablet sucralfate 2020-0 Yes 1 gm = 1 Mem oria 1 g oral 4-09 tab, PO, l tablet 15:26: Q12H, # 28 Skylar nn 00 tab, 0 Refill(s), Pharmacy: [facility], 162.56, cm, 08/29/20 5:30:00 CDT, Height, 97.273, kg, 08/29/20 5:30:00 CDT, Weight pantoprazol No 40 mg = 1 M emoria e 40 mg 4-09 tab, PO, l oral 15:26: Daily, # [place] enteric 00 30 tab, 0 coated Refill(s) tablet sucralfate Yes 1 gm = 1 Mem oria 1 g oral 4-09 tab, PO, l tablet 15:26: Q12H, # 28 Skylar nn 00 tab, 0 Refill(s), Pharmacy: [facility], 162.56, cm, 08/29/20 5:30:00 CDT, [...] Skylar nn 00 tab, 0 Refill(s), Pharmacy: [place] [id number], 162.56, cm, 08/29/20 5:30:00 CDT, Height, 97.273, kg, 08/29/20 5:30:00 CDT, Weight Saline No Notes: Memoria Flush 0.9% 4-09 (Same as: l 15:25: BD [place] 00 Posiflush) Lorazepam No Notes: Memori a 4-09 (Same as: l 15:25: Ativan) Marty 00 Saline No Notes: Memoria Flush 0.9% 4-09 (Same as: l 15:25: BD [place] 00 Posiflush) Lorazepam No Notes: Memori a 4-09 (Same as: l 15:25: Ativan) [place] 00 Saline No Notes: Memoria Flush 0.9% 4-09 (Same as: l 15:25: BD Marty 00 Posiflush) Saline No Notes: Memoria Flush 0.9% 4-09 (Same as: l 15:25: BD Marty 00 Posiflush) Lorazepam No Notes: Memori a 4-09 (Same as: l 15:25: Ativan) [place] 00 Lorazepam No Notes: Memori a 4-09 [...] a 4-09 (Same as: l 15:25: Ativan) [place] 00 Saline No Notes: Memoria Flush 0.9% 4-09 (Same as: l 15:25: BD [place] 00 Posiflush) Lorazepam No Notes: Memori a 4-09 (Same as: l 15:25: Ativan) Isuprel HCl No Route: IV, Memoria (ANES) 0.2 4 Drug form: l mg + 15:00: INJ, [...] Drug form: l mg + 15:00: INJ, [place] 00 Dosing Weight 97.3, kg, Start date: 08/29/20 10:00:00 CDT, Stop date: 08/29/20 11:00:00 CDT Isuprel HCl 2020-0 No Route: IV, Memoria (ANES) 0.2 08-29 Drug form: l mg + 15:00: INJ, [place] 00 Dosing Weight 97.3, kg, Start date: [...] 08-29 Drug form: l 14:18: INJ, ONCE, [place] 00 Stop date: 08/29/20 9:18:00 CDT heparin [...] Memori a 08-29 Route: l 14:01: IVP, [place] 00 Q5Min, Dosing Weight 97.273, kg, PRN Elevated BP, Start date: 08/29/20 9:01:00 CDT, Duration: 5 doses or times, Stop date: Limited # of times Acetaminoph 1-0 No 1,000 mg, M emoria en 08-29 Route: PO, l 14:01: Drug form: [place] 00 TAB, ONCE, Dosing Weight 97.273, kg, [...] oria ne 08-29 Route: l 14:01: IVP, [place] 00 Q5Min, Dosing Weight 97.273, kg, PRN [...] 08-29 Route: PO, l 14:01: Drug form: [place] 00 TAB, ONCE, Dosing Weight 97.273, kg, [...] oria ne 08-29 Route: l 14:01: IVP, [place] 00 Q5Min, Dosing Weight 97.273, kg, PRN Pain Score 7-10, Start date: 08/29/20 9:01:00 CDT, Duration: 4 doses or times, Stop date: Limited # of times Flumazenil 1-0 No 0.2 mg, Caesar lisa 08-29 Route: l 14:01: IVP, PRN, [place] 00 Dosing Weight 97.273, kg, PRN Benzodiaze [...] 08-29 Route: PO, l 14:01: Drug form: [place] 00 TAB, ONCE, Dosing Weight 97.273, kg, [...] lisa 08-29 Route: l 14:01: IVP, PRN, [place] 00 Dosing Weight 97.273, kg, PRN Benzodiaze pine Reversal, Initial dose, Start date: 08/29/20 9:01:00 CDT, Duration: 30 day, Stop date: 09/28/20 9:00:00 CDT Naloxone 1-0 No 0.4 mg, Memori a 08-29 Route: l 14:01: IVP, [place] 00 Q2MIN, Dosing Weight 97.273, kg, PRN [...] Memori a 08-29 Route: l 14:01: IVP, [place] 00 Q5Min, Dosing Weight 97.273, kg, PRN [...] oria ne 08-29 Route: l 14:01: IVP, [place] 00 Q5Min, Dosing Weight 97.273, kg, PRN [...] 08-29 Route: PO, l 14:01: Drug form: [place] 00 TAB, ONCE, Dosing Weight 97.273, kg, [...] lisa 08-29 Route: l 14:01: IVP, PRN, [place] 00 Dosing Weight 97.273, kg, PRN Benzodiaze [...] Memori a 08-29 Route: l 14:01: IVP, [place] 00 Q2MIN, Dosing Weight 97.273, kg, PRN Narcotic Reversal, Start date: 08/29/20 9:01:00 CDT, Duration: 8 doses or times, Stop date: Limited # of times Ondansetron 2021-0 No 4 mg, Memor ia 08-29 Route: l 14:01: IVP, ONCE, [place] Dosing Weight 97.273, kg, PRN Nausea & [...] 08-29 Route: PO, l 14:01: Drug form: [place] 00 TAB, ONCE, Dosing Weight 97.273, kg, [...] Memori a 08-29 Route: l 14:01: IVP, [place] 00 Q2MIN, Dosing Weight 97.273, kg, PRN Narcotic Reversal, Start date: 08/29/20 9:01:00 CDT, Duration: 8 doses or times, Stop date: Limited # of times Ondansetron 1-0 No 4 mg, Memor ia 08-29 Route: l 14:01: IVP, ONCE, [place] 00 Dosing Weight 97.273, kg, PRN Nausea [...] 08-29 Route: PO, l 14:01: Drug form: [place] 00 TAB, ONCE, Dosing Weight 97.273, kg, [...] oria ne 08-29 Route: l 14:01: IVP, Maryt 00 Q5Min, Dosing Weight 97.273, kg, PRN Pain Score 7-10, Start date: 08/29/20 9:01:00 CDT, Duration: 4 doses or times, Stop date: Limited # of times Flumazenil 0 No 0.2 mg, Caesar lisa 08-29 Route: l 14:01: IVP, PRN, [place] 00 Dosing Weight 97.273, kg, PRN Benzodiaze [...] 08-29 Drug form: l 13:42: INJ, ONCE, [place] Stop date: 08/29/20 8:42:00 CDT fentaNYL 2020-0 No Route: IV, Mem oria (ANES) 08-29 Drug form: l 13:42: INJ, ONCE, [place] Stop date: 08/29/20 8:42:00 CDT fentaNYL 2020- [...] Drug form: l 10 13:15: INJ, Start [place] microgram 00 date: 08/29/20 8:15:00 CDT, Stop date: 08/29/20 9:15:00 CDT norepinephr 2020-0 No Route: IV, Memoria ine (ANES) 08-29 Drug form: l 10 13:15: INJ, Start [place] microgram 00 date: 08/29/20 8:15:00 CDT, Stop date: 08/29/20 9:15:00 CDT norepinephr 2020-0 No Route: IV, Memoria ine (ANES) 08-29 Drug form: l 10 13:15: INJ, Start [place] microgram 00 date: 08/29/20 8:15:00 CDT, Stop date: 08/29/20 9:15:00 CDT norepinephr 2020-0 No Route: IV, Memoria ine (ANES) 08-29 Drug form: l 10 13:15: INJ, Start [place] microgram 00 date: 08/29/20 8:15:00 CDT, Stop date: 08/29/20 9:15:00 CDT norepinephr 2020-0 No Route: IV, Memoria ine (ANES) 4- Drug form: l 10 13:15: INJ, Start [place] microgram 00 date: 08/29/20 8:15:00 CDT, Stop date: 08/29/20 9:15:00 CDT norepinephr 2020-0 No Route: IV, Memoria ine (ANES) - Drug form: l 10 13:15: INJ, Start [place] microgram 00 date: 08/29/20 8:15:00 CDT, Stop date: 08/29/20 9:15:00 CDT Sodium 2020-0 No Route: IV, Memor ia Chloride 4-09 Total l 0.9% IV 12:30: Volume: Marty (ANES) 1000 00 1,000, mL Start date: 08/29/20 7:30:00 CDT, Stop date: 08/29/20 8:30:00 CDT Sodium 2020-0 No Route: IV, Memor ia Chloride 4-09 Total l 0.9% IV 12:30: Volume: [place] (ANES) 1000 00 1,000, mL Start date: [...] PO, l Hydrochlori 11:42: Q24H, # 30 [place] de 150 MG 00 tab, 0 Extended Refill(s) Release Tablet apixaban 2020-0 Yes 5 mg, PO, Me moria MG Oral 4- Q12H, tab, l Tablet 11:41: 0 [place] [Eliquis] 00 Refill(s), For Atrial Fibrilatio n apixaban 2020-0 Yes 5 mg, PO, Me moria MG Oral 4- Q12H, tab, l Tablet 11:41: 0 [place] [Eliquis] 00 Refill(s), For Atrial Fibrilatio n [...] 08-29 Q12H, tab, l Tablet 11:41: 0 [place] [Eliquis] 00 Refill(s), For Atrial Fibrilatio n [...] tab, PO, l tablet 11:38: Daily, # [place] 00 90 tab, 3 Refill(s) AMIODarone 2020-0 Yes 200 mg = 1 M emoria 200 mg oral 4-09 tab, PO, l tablet 11:38: Daily, # [place] 00 90 tab, 3 Refill(s) AMIODarone 2020-0 Yes 200 mg = 1 M emoria 200 mg oral -09 tab, PO, l tablet 11:38: Daily, # [place] 00 90 tab, 3 Refill(s) AMIODarone 2020-0 Yes 200 mg = 1 M emoria 200 mg oral 4-09 tab, PO, l tablet 11:38: Daily, # Marty 00 90 tab, 3 Refill(s) AMIODarone 2020-0 Yes 200 mg = 1 M emoria 200 mg oral 4-09 tab, PO, l tablet 11:38: Daily, # [place] 00 90 tab, 3 Refill(s) AMIODarone 2020-0 Yes 200 mg = 1 M emoria 200 mg oral 4-09 tab, PO, l tablet 11:38: Daily, # [place] 00 90 tab, 3 Refill(s) AMIODarone Yes 200 mg = 1 M emoria 200 mg oral 4-09 tab, PO, l tablet 11:38: Daily, # [place] 00 90 tab, 3 Refill(s) normal 0 [...] st 00:00[facility] 00 l Eliquis 5 0 Yes [facility] 00 l Eliquis 5 Yes [facility] mg tablet 08-16 00:00: [facility]ospita l Eliquis 5 0 Yes [facility] mg tablet 08-16 00:00: [facility]ospita l Eliquis 5 0 Yes [facility] mg tablet 08-16 00:00: Hospita l Eliquis 5 0 Yes [facility] mg tablet 08-16 00:00: Hospita l Eliquis 5 Yes [facility] mg tablet 08-16 00:00: Hospita l Eliquis 5 0 Yes [facility] mg tablet 08-16 00:00: Hospita l Eliquis 5 0 Yes [facility] mg tablet 08-16 00:00: Hospita l Eliquis 5 0 Yes [facility] mg tablet 08-16 00:00: Hospita l Eliquis 5 0 Yes [facility] mg tablet 08-16 00:00: [facility]ospita 00 l predniSONE 0 Yes [facility] (Deltasone) 3-13 [facility] [...] [place] on inhaler 00 [facility] albuterol 2019- Yes [facility] 90 4-14 ity of mcg/actuati 00:00: [place] on inhaler 00 [facility] albuterol 2019- Yes [facility] 90 4-14 ity of mcg/actuati [...] tablet 00 (two) times a day. sertraline 0 Yes 200mg Q.5D Take 200 [facility] (Zoloft) [...] tablet 00:00: 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) Influenza Virus 2022-03-05 Completed Universit y of Vaccine,quad 00:00:00 [place] [facility] Im,preserve Free Branch 65+ SARS-COV-2 COVID-19 2020-07-23 Completed Unive rsity of PFIZER VACCINE 00:00:00 [facility] PFIZER COVID-19 2020-07-23 Completed [facility] VACCINATION 00:00:00 Hospital PFIZER COVID-19 2020-07-23 Completed [facility] VACCINATION 00:00:00 Hospital PFIZER COVID-19 2020-07-23 Completed [facility] VACCINATION 00:00:00 [facility] PFIZER COVID-19 2020-07-23 Completed [facility] VACCINATION 00:00:00 Hospital PFIZER COVID-19 2020-07-23 Completed [facility] VACCINATION 00:00:00 [facility] PFIZER COVID-19 2020-07-23 Completed [facility] VACCINATION 00:00:00 [facility] PFIZER COVID-19 2020-07-23 Completed [facility] VACCINATION 00:00:00 Hospital PFIZER COVID-19 2020-07-23 Completed [facility] VACCINATION 00:00:00 [facility] PFIZER COVID-19 2020-07-23 Completed [facility] VACCINATION 00:00:00 Hospital PFIZER COVID-19 2020-07-23 Completed [facility] VACCINATION 00:00:00 Hospital PFIZER COVID-19 2020-07-23 Completed [facility] VACCINATION 00:00:00 [facility] SARS-COV-2 COVID-19 2020-07-02 Completed Unive rsity of PFIZER VACCINE 00:00:00 [facility] PFIZER COVID-19 2020-07-02 Completed [facility] VACCINATION 00:00:00 Hospital PFIZER COVID-19 2020-07-02 Completed [facility] VACCINATION 00:00:00 Hospital PFIZER COVID-19 2020-07-02 Completed [facility] VACCINATION 00:00:00 Hospital PFIZER COVID-19 2020-07-02 Completed [facility] VACCINATION 00:00:00 Hospital PFIZER COVID-19 2020-07-02 Completed [facility] VACCINATION 00:00:00 [facility] PFIZER COVID-19 2020-07-02 Completed [facility] MRNA VACCINATION 00:00:00 [facility] PFIZER COVID-19 2020-07-02 Completed [facility] VACCINATION 00:00:00 [facility] PFIZER COVID-19 2020-07-02 Completed [facility] MRNA VACCINATION 00:00:00 [facility] PFIZER COVID-19 2020-07-02 Completed [facility] MRNA VACCINATION 00:00:00 [facility] PFIZER COVID-19 2020-07-02 Completed [facility] MRNA VACCINATION 00:00:00 [facility] PFIZER COVID-19 2020-07-02 Completed [facility]RNA VACCINATION 00:00:00 [facility] Influenza Virus 2017-03-08 Completed Universit y of Vaccine 00:00:00 [facility] Influenza Virus 2017-03-08 Completed Universit y of Vaccine 00:00:00 [facility] Influenza Virus 2017-03-08 Completed Universit y of Vaccine 00:00:00 [facility] Influenza Virus 2017-03-08 Completed Universit y of Vaccine 00:00:00 [facility] Influenza Virus 2017-03-08 Completed Universit y of Vaccine 00:00:00 [facility] Influenza Virus 2014-01-30 Completed Universit y of Vaccine (3+ yrs) 00:00:00 [facility] Branch Pneumococcal 13 2014-01-30 Completed Universit y of Conjugate, PCV13 00:00:00 [facility] dical (Prevnar 13) Branch Influenza Virus 2014-01-30 Completed Universit y of Vaccine (3+ yrs) 00:00:00 [facility] Branch Pneumococcal 13 2014-01-30 Completed Universit y of Conjugate, PCV13 00:00:00 [facility] dical (Prevnar 13) Branch Influenza Virus 2014-01-30 Completed Universit y of Vaccine (3+ yrs) 00:00:00 [facility] Branch Pneumococcal 13 2014-01-30 Completed Universit y of Conjugate, PCV13 00:00:00 [facility] dical (Prevnar 13) Branch Influenza Virus 2014-01-30 Completed Universit y of Vaccine (3+ yrs) 00:00:00 [facility] Branch Pneumococcal 13 2014-01-30 Completed Universit y of Conjugate, PCV13 00:00:00 [facility] dical (Prevnar 13) Branch Influenza Virus 2014-01-30 Completed Universit y of Vaccine (3+ yrs) 00:00:00 [facility] dical Branch Pneumococcal 13 2014-01-30 Completed Universit y of Conjugate, PCV13 00:00:00 [facility] dical (Prevnar 13) Branch Pneumococcal 2012-02-16 Completed University o f Polysaccharide, 00:00:00 [place] [facility] PPSV23 (PNEUMOVAX) Branch Influenza Virus 2012-02-16 Completed Universit y of Vaccine 00:00:00 [facility] PPD (TB) 2012-02-16 Completed University of 00:00:00 [facility] Pneumococcal 2012-02-16 Completed University o f Polysaccharide, 00:00:00 [place] [facility] PPSV23 (PNEUMOVAX) Branch Influenza Virus 2012-02-16 Completed Universit y of Vaccine 00:00:00 [facility] PPD (TB) 2012-02-16 Completed University of 00:00:00 [facility] Pneumococcal 2012-02-16 Completed University o f Polysaccharide, 00:00:00 [place] [facility] PPSV23 (PNEUMOVAX) Branch Influenza Virus 2012-02-16 Completed Universit y of Vaccine 00:00:00 [facility] PPD (TB) 2012-02-16 Completed University of 00:00:00 [facility] Pneumococcal 2012-02-16 Completed University o f Polysaccharide, 00:00:00 [place] [facility] PPSV23 (PNEUMOVAX) Branch Influenza Virus 2012-02-16 Completed Universit y of Vaccine 00:00:00 [facility] PPD (TB) 2012-02-16 Completed University of 00:00:00 [facility] Pneumococcal 2012-02-16 Completed University o f Polysaccharide, 00:00:00 [place] [facility] PPSV23 (PNEUMOVAX) Branch Influenza Virus [...] Completed Unive rsity of Dosage 00:00:00 [facility] Hep B, Adol or Pedi 2011-03-17 Completed Unive rsity of Dosage 00:00:00 [facility] Hep B, Adol or Pedi 2011-03-17 Completed Unive rsity of Dosage 00:00:00 [facility] Hep B, Adol or Pedi 2011-03-17 Completed Unive rsity of Dosage 00:00:00 [facility] Hep B, Adol or [...] (TB) 2010-11-18 Completed University of 00:00:00 [facility] TDAP (ADACEL) 2010-11-18 Completed University of VACCINE 00:00:00 [facility] PPD (TB) 2010-11-18 Completed University of 00:00:00 [facility] TDAP (ADACEL) 2010-11-18 Completed University of VACCINE 00:00:00 [facility] PPD (TB) 2010-11-18 Completed University of 00:00:00 [facility] TDAP (ADACEL) 2010-11-18 Completed University of VACCINE 00:00:00 [facility] PPD (TB) 2010-11-18 Completed University of 00:00:00 [facility] TDAP (ADACEL) 2010-11-18 Completed University of VACCINE 00:00:00 [facility] PPD (TB) 2010-11-18 Completed University of 00:00:00 [facility] TDAP (ADACEL) 2010-11-18 Completed University of VACCINE 00:00:00 [facility] HEPATITIS A 2004-03-02 Completed [facility] 00:00:00 [facility] HEPATITIS A 2004-03-02 Completed [facility] 00:00:00 [facility] HEPATITIS A 2004-03-02 Completed [facility] 00:00:00 [facility] HEPATITIS A 2004-03-02 Completed [facility] 00:00:00 [facility] HEPATITIS A 2004-03-02 Completed [facility] 00:00:00 [facility] HEPATITIS A 2003-08-01 Completed [facility] 00:00:00 [facility] HEPATITIS A 2003-08-01 Completed [facility] 00:00:00 [facility] HEPATITIS A 2003-08-01 Completed [facility] 00:00:00 [facility] HEPATITIS A 2003-08-01 Completed [facility] 00:00:00 [facility] HEPATITIS A 2003-08-01 Completed [facility] 00:00:00 [facility] Pneumococcal 2001-10-04 Completed University o f Polysaccharide, 00:00:00 [place] [facility] PPSV23 (PNEUMOVAX) Branch PPD (TB) 2001-10-04 Completed [facility] 00:00:00 [facility] Pneumococcal 2001-10-04 Completed University o f Polysaccharide, 00:00:00 [place] [facility] PPSV23 (PNEUMOVAX) Branch PPD (TB) 2001-10-04 Completed [facility] 00:00:00 [facility] Pneumococcal 2001-10-04 Completed University o f Polysaccharide, 00:00:00 [place] [facility] PPSV23 (PNEUMOVAX) Branch PPD (TB) 2001-10-04 Completed [facility] 00:00:00 [facility] Pneumococcal 2001-10-04 Completed University o f Polysaccharide, 00:00:00 [place] [facility] PPSV23 (PNEUMOVAX) Branch PPD (TB) 2001-10-04 Completed [facility] 00:00:00 [place] [facility] Pneumococcal 2001-10-04 Completed University o f Polysaccharide, 00:00:00 [place] [facility] PPSV23 (PNEUMOVAX) Branch PPD (TB) 2001-10-04 Completed [facility] 00:00:00 [facility] Vital Signs Vital Name Observation Time Observation Value Comments Source Systolic blood 2022-02-16 21:41:00 169 mm[Hg] Univer sity of pressure [facility] Diastolic blood 2022-02-16 21:41:00 86 mm[Hg] Unive rsity of pressure [facility] Heart rate 2022-02-16 21:41:00 51 /min [facility] Body temperature 2022-02-16 21:41:00 36.56 Amina Univ ersity of [facility] Respiratory rate 2022-02-16 21:41:00 17 /min [facility] Oxygen saturation in 2022-02-16 21:41:00 98 /min [facility] Arterial blood by [facility] Pulse oximetry Branch Body height 2022-02-11 16:02:00 162.6 cm [facility] [place] [facility] [place] Body weight 2022-02-11 16:02:00 79.379 kg [facility] [place] [facility] [place] BMI 2022-02-11 16:02:00 30.04 kg/m2 [facility] Systolic blood 2021-11-20 13:47:00 165 mm[Hg] Univer sity of pressure [facility] Diastolic blood 2021-11-20 13:47:00 83 mm[Hg] Unive rsity of pressure [facility] Heart rate 2021-11-20 13:47:00 58 /min [facility] [place] [facility] [place] Body temperature 2021-11-20 13:42:00 36.39 Amina Univ ers[facility] Respiratory rate 2021-11-20 13:42:00 16 /min Univ ersity of [facility] Body height 2021-11-20 13:42:00 162.6 cm [facility] [place] [facility] [place] Body weight 2021-11-20 13:42:00 84.369 kg [facility] [place] [facility] [place] BMI 2021-11-20 13:42:00 31.93 kg/m2 [facility] Systolic blood 2021-07-14 15:18:00 142 mm[facility]Hg[facility] Diastolic blood 2021-07-14 15:18:00 76 mm[Hg] [facility] Heart rate 2021-07-14 15:18:00 61 /[facility] Body height 2021-07-14 15:18:00 162.6 cm [facility] 2021-07-14 15:18:00 94.802 [facility] BMI 2021-07-14 15:18:00 35.87 kg/m2 [facility] Systolic blood 2020-12-08 15:48:00 125 mm[Hg] Method [facility] pressure Diastolic blood 2020-12-08 15:48:00 76 mm[Hg] [facility] pressure Heart rate 2020-12-08 15:48:00 64 /min [facility] Body temperature 2020-12-08 15:48:00 36.61 Amina [facility] Respiratory rate 2020-12-08 15:48:00 17 /min [facility] Body height 2020-12-08 15:48:00 162.6 cm [facility] Body weight 2020-12-08 15:48:00 98.884 kg [facility] BMI 2020-12-08 15:48:00 37.42 kg/m2 [facility] Oxygen saturation in 2020-12-08 15:48:00 97 /min [facility] Arterial blood by Pulse oximetry Respitory Rate 2020-08-30 13:00:00 Memori al Marty Systolic (mm Hg) 2020-08-30 13:00:00 Caesar rial [place] Diastolic (mm Hg) 2020-08-30 13:00:00 Mem orial Marty Systolic (mm Hg) 2020-08-30 11:00:00 Caesar rial Marty Diastolic (mm Hg) 2020-08-30 11:00:00 Mem orial Marty Temperature Oral (F) 2020-08-30 11:00:00 98.4 F [facility] Respitory Rate 2020-08-30 11:00:00 Memori al [place] Respitory Rate 2020-08-30 10:00:00 Memori al [place] Systolic (mm Hg) 2020-08-30 10:00:00 Caesar rial Marty Diastolic (mm Hg) 2020-08-30 10:00:00 Mem orial Marty Temperature Oral (F) 2020-08-30 00:00:00 96.9 F [facility] [place] Temperature Oral (F) 2020-08-29 11:26:00 97.6 F [facility] Height 2020-08-29 10:30:00 162.56 cm [facility] Weight 2020-08-29 10:30:00 [facility] BMI Calculated 2020-08-29 10:30:00 [place] Hammond Procedures Procedure Date / Time Performing Clinician Source Performed MAGNESIUM 2022-02-15 09:41:00 Sofia Garcia [facility] BASIC METABOLIC PANEL (NA, 2022-02-15 09:41:00 Sofia Garcia [facility] K, CL, CO2, GLUCOSE, BUN, [facility] [place] CREATININE, [place]) CBC WITH DIFF 2022-02-15 09:41:00 Sofia Garcia [facility] N-TERMINAL PRO-BNP 2022-02-15 09:41:00 Sofia Garcia [facility] BASIC METABOLIC PANEL (NA, 2022-02-13 09:40:00 Sofia Garcia [facility] K, CL, CO2, GLUCOSE, BUN, Medica l Branch CREATININE, CA) CBC WITH DIFF 2022-02-13 09:40:00 Sofia Garcia [facility] TROPONIN I 2022-02-11 23:41:00 Sofia Garcia [facility] N-TERMINAL PRO-BNP 2022-02-11 23:41:00 Sofia Garcia [facility] TRANSTHORACIC ECHO (TTE) 2022-02-11 21:26:50 Sofia Garcia [facility] CT ABDOMEN PELVIS W 2022-02-11 07:45:43 Reilly Means [facility] RAPID INFLUENZA A/B 2022-02-11 06:54:00 Reilly Means [facility] URINALYSIS 2022-02-11 06:45:00 Reilly Means [place] [facility] URINE CULTURE 2022-02-11 06:45:00 Reilly Means [facility] HB ECG ROUTINE & RHYTHM 2022-02-11 05:22:08 Reilly Means [facility] STRIP [facility] BLOOD CULTURE SCREEN 2022-02-11 04:58:00 Reilly Means [facility] TROPONIN I 2022-02-11 04:58:00 Reilly Means [facility] COMP. METABOLIC PANEL 2022-02-11 04:58:00 Reilly Means [facility] ([id number]) Medical Branch CBC WITH DIFF 2022-02-11 04:58:00 Reilly Means [facility] PROTHROMBIN TIME / INR 2022-02-11 04:58:00 Reilly Means [facility] ACTIVATED PARTIAL THRMPLAS 2022-02-11 04:58:00 Reilly Means [facility] N-TERMINAL PRO-BNP 2022-02-11 04:58:00 Reilly Means [facility] LACTIC ACID WHOLE BLOOD 2022-02-11 04:58:00 Reilly Means [facility] COVID-19 (ID NOW RAPID 2022-02-11 04:58:00 Reilly Means [facility] TESTING) Medical Branch LAB ONLY COVID 2022-02-11 04:58:00 Reilly Menas [facility] INTERPRETATION [facility] XR CHEST 1 VW 2022-02-11 04:27:42 Reilly Means [facility] HOSPITAL ADMISSION 2022-02-10 05:01:00 Doctor Unassigned, [facility] [place] [facility] ECG 12-LEAD 2021-07-14 15:14:00 Elan Lira [facility] [id number] 2021-06-17 00:00:00 RASSA [facility] GASTROINTESTINAL PANEL 2020-12-08 22:21:00 Eliseo Arce [facility] XR ABDOMEN 1 VW 2020-12-08 18:06:32 Eliseo Arce [place] < 1 HOUR 2020-09-05 22:39:00 Eliseo Arce spital SURGICAL PATHOLOGY REQUEST 2020-09-05 21:54:[address] [facility] XR CHEST 1 VW PORTABLE 2020-09-05 19:55:00 [facility] DIS[facility]GE PATIENT 2020-09-05 17:27:55 Lucas Harris [facility] MN AN ELECTIVE 2020-09-05 16:47:23 Kirit Flood V[facility] ENDOTRACHEAL AIRWAY EGD, INTRAOPERATIVE 2020-09-05 16:27:00 [facility] 2020-09-05 15:04:[address] [facility] TIME (PTT) M. PROTHROMBIN TIME WITH INR 2020-09-05 15:04:00 Mindy Maharaj [facility] M. Plan of Care Planned Activity Planned Date Details Comments Source Future Scheduled 2022-03-04 SHINGLES VACCINES (1 Met [facility] Test 14:03:57 of 2) [code = SHINGLES VACCINES (1 of 2)] Future Scheduled 2022-03-04 BREAST CANCER [facility] Test 14:03:57 SCREENING [code = BREAST CANCER SCREENING] Future Scheduled 2022-03-04 COLONOSCOPY SCREENING [facility] Test 14:03:57 [code = COLONOSCOPY SCREENING] Future Scheduled 2022-03-04 HEPATITIS B VACCINES Met [facility] Test 14:03:57 (1 of 3 - Risk 3-dose series) [code = HEPATITIS B VACCINES (1 of 3 - Risk 3-dose series)] Future Scheduled 2022-03-04 COVID-19 VACCINE (3 - [facility] Test 14:03:57 Booster for Pfizer series) [code = COVID-19 VACCINE (3 - Booster for Pfizer series)] Future Scheduled 2022-03-04 65+ PNEUMOCOCCAL [facility] Test 14:03:57 VACCINE (4 - PPSV23 if available, else PCV20) [code = 65+ PNEUMOCOCCAL VACCINE (4 - PPSV23 if available, else PCV20)] Future Scheduled 2022-03-04 INFLUENZA VACCINE Method [facility] Test 14:03:57 [code = INFLUENZA VACCINE] Future Scheduled 2022-03-04 SHINGLES VACCINES (1 Met [facility] Test 14:03:57 of 2) [code = SHINGLES VACCINES (1 of 2)] Future Scheduled 2022-03-04 BREAST CANCER [facility] Test 14:03:57 SCREENING [code = BREAST CANCER SCREENING] Future Scheduled 2022-03-04 COLONOSCOPY SCREENING [facility] Test 14:03:57 [code = COLONOSCOPY SCREENING] Future Scheduled 2022-03-04 HEPATITIS B VACCINES Met [facility] Test 14:03:57 (1 of 3 - Risk 3-dose series) [code = HEPATITIS B VACCINES (1 of 3 - Risk 3-dose series)] Future Scheduled 2022-03-04 COVID-19 VACCINE (3 - [facility] Test 14:03:57 Booster for Pfizer series) [code = COVID-19 VACCINE (3 - Booster for Pfizer series)] Future Scheduled 2022-03-04 65[facility]:03:57 VACCINE (4 - PPSV23 if available, else PCV20) [code = 65+ PNEUMOCOCCAL VACCINE (4 - PPSV23 if available, else PCV20)] Future Scheduled 2022-03-04 INFLUENZA VACCINE Method [facility] Test 14:03:57 [code = INFLUENZA VACCINE] Future Scheduled 2022-02-11 SHINGLES VACCINES (1 Met [facility] Test 13:39:12 of 2) [code = SHINGLES VACCINES (1 of 2)] Future Scheduled 2022-02-11 BREAST CANCER [facility] Test 13:39:12 SCREENING [code = BREAST CANCER SCREENING] Future Scheduled 2022-02-11 COLONOSCOPY SCREENING [facility] Test 13:39:12 [code = COLONOSCOPY SCREENING] Future Scheduled 2022-02-11 HEPATITIS B VACCINES Met [facility] Test 13:39:12 (1 of 3 - Risk 3-dose series) [code = HEPATITIS B VACCINES (1 of 3 - Risk 3-dose series)] Future Scheduled 2022-02-11 COVID-19 VACCINE (3 - [facility] Test 13:39:12 Booster for Pfizer series) [code = COVID-19 VACCINE (3 - Booster for Pfizer series)] Future Scheduled 2022-02-11 65+ [facility] 13:39:12 VACCINE (4 - PPSV23 or PCV20) [code = 65+ PNEUMOCOCCAL VACCINE (4 - PPSV23 or PCV20)] Future Scheduled 2022-02-11 INFLUENZA VACCINE Method [facility] Test 13:39:12 [code = INFLUENZA VACCINE] Future Scheduled 2022-01-29 SHINGLES VACCINES (1 Met [facility] Test 14:07:20 of 2) [code = SHINGLES VACCINES (1 of 2)] Future Scheduled 2022-01-29 BREAST CANCER [facility] Test 14:07:20 SCREENING [code = BREAST CANCER SCREENING] Future Scheduled 2022-01-29 COLONOSCOPY SCREENING [facility] Test 14:07:20 [code = COLONOSCOPY SCREENING] Future Scheduled 2022-01-29 HEPATITIS B VACCINES Met [facility] Test 14:07:20 (1 of 3 - Risk 3-dose series) [code = HEPATITIS B VACCINES (1 of 3 - Risk 3-dose series)] Future Scheduled 2022-01-29 COVID-19 VACCINE (3 - [facility] Test 14:07:20 Booster for Pfizer series) [code = COVID-19 VACCINE (3 - Booster for Pfizer series)] Future Scheduled 2022-01-29 65+ PNEUMOCOCCAL [facility] Test 14:07:20 VACCINE (4 - PPSV23 or PCV20) [code = 65+ PNEUMOCOCCAL VACCINE (4 - PPSV23 or PCV20)] Future Scheduled 2022-01-29 INFLUENZA VACCINE Method [facility] Test 14:07:20 [code = INFLUENZA VACCINE] Future Scheduled 2022-01-29 SHINGLES VACCINES (1 Met [facility] Test 14:07:20 of 2) [code = SHINGLES VACCINES (1 of 2)] Future Scheduled 2022-01-29 BREAST CANCER [facility] Test 14:07:20 SCREENING [code = BREAST CANCER SCREENING] Future Scheduled 2022-01-29 COLONOSCOPY SCREENING [facility] Test 14:07:20 [code = COLONOSCOPY SCREENING] Future Scheduled 2022-01-29 HEPATITIS B VACCINES Met [facility] Test 14:07:20 (1 of 3 - Risk 3-dose series) [code = HEPATITIS B VACCINES (1 of 3 - Risk 3-dose series)] Future Scheduled 2022-01-29 COVID-19 VACCINE (3 - [facility] Test 14:07:20 Booster for Pfizer series) [code = COVID-19 VACCINE (3 - Booster for Pfizer series)] Future Scheduled 2022-01-29 65+ [facility]:07:20 VACCINE (4 - PPSV23 or PCV20) [code = 65+ PNEUMOCOCCAL VACCINE (4 - PPSV23 or PCV20)] Future Scheduled 2022-01-29 INFLUENZA VACCINE Method [facility] Test 14:07:20 [code = INFLUENZA VACCINE] Future Scheduled 2022-01-29 SHINGLES VACCINES (1 Met [facility] Test 14:07:20 of 2) [code = SHINGLES VACCINES (1 of 2)] Future Scheduled 2022-01-29 BREAST CANCER [facility] Test 14:07:20 SCREENING [code = BREAST CANCER SCREENING] Future Scheduled 2022-01-29 COLONOSCOPY SCREENING [facility] Test 14:07:20 [code = COLONOSCOPY SCREENING] Future Scheduled 2022-01-29 HEPATITIS B VACCINES Met [facility] Test 14:07:20 (1 of 3 - Risk 3-dose series) [code = HEPATITIS B VACCINES (1 of 3 - Risk 3-dose series)] Future Scheduled 2022-01-29 COVID-19 VACCINE (3 - [facility] Test 14:07:20 Booster for Pfizer series) [code = COVID-19 VACCINE (3 - Booster for Pfizer series)] Future Scheduled 2022-01-29 65+ [facility]AL [facility] Test 14:07:20 VACCINE (4 - PPSV23 or PCV20) [code = 65+ PNEUMOCOCCAL VACCINE (4 - PPSV23 or PCV20)] Future Scheduled 2022-01-29 INFLUENZA VACCINE Method [facility] Test 14:07:20 [code = INFLUENZA VACCINE] Future Scheduled 2022-01-29 SHINGLES VACCINES (1 Met [facility] Test 14:07:20 of 2) [code = SHINGLES VACCINES (1 of 2)] Future Scheduled 2022-01-29 BREAST CANCER [facility] Test 14:07:20 SCREENING [code = BREAST CANCER SCREENING] Future Scheduled 2022-01-29 COLONOSCOPY SCREENING [facility] Test 14:07:20 [code = COLONOSCOPY SCREENING] Future Scheduled 2022-01-29 HEPATITIS B VACCINES Met [facility] Test 14:07:20 (1 of 3 - Risk 3-dose series) [code = HEPATITIS B VACCINES (1 of 3 - Risk 3-dose series)] Future Scheduled 2022-01-29 COVID-19 VACCINE (3 - [facility] Test 14:07:20 Booster for Pfizer series) [code = COVID-19 VACCINE (3 - Booster for Pfizer series)] Future Scheduled 2022-01-29 65+ PNEUMOCOCCAL [facility] Test 14:07:20 VACCINE (4 - PPSV23 or PCV20) [code = 65+ PNEUMOCOCCAL VACCINE (4 - PPSV23 or PCV20)] Future Scheduled 2022-01-29 INFLUENZA VACCINE Method [facility] Test 14:07:20 [code = INFLUENZA VACCINE] Future Scheduled 2022-01-20 SHINGLES VACCINES (1 Met [facility] Test 06:12:34 of 2) [code = SHINGLES VACCINES (1 of 2)] Future Scheduled 2022-01-20 Screening for [facility] Test 06:12:34 malignant neoplasm of cervix (procedure) [code = [id number]] Future Scheduled 2022-01-20 BREAST CANCER [facility] Test 06:12:34 SCREENING [code = BREAST CANCER SCREENING] Future Scheduled 2022-01-20 COLONOSCOPY SCREENING [facility] Test 06:12:34 [code = COLONOSCOPY SCREENING] Future Scheduled 2022-01-20 HEPATITIS B VACCINES Met [facility] Test 06:12:34 (1 of 3 - Risk 3-dose series) [code = HEPATITIS B VACCINES (1 of 3 - Risk 3-dose series)] Future Scheduled 2022-01-20 COVID-19 VACCINE (3 - [facility] Test 06:12:34 Booster for Pfizer series) [code = COVID-19 VACCINE (3 - Booster for Pfizer series)] Future Scheduled 2022-01-20 65+ PNEUMOCOCCAL [facility] Test 06:12:34 VACCINE (4 - PPSV23 or PCV20) [code = 65+ PNEUMOCOCCAL VACCINE (4 - PPSV23 or PCV20)] Future Scheduled 2022-01-20 INFLUENZA VACCINE Method [facility] Test 06:12:34 [code = INFLUENZA VACCINE] Future Scheduled 2022-01-16 SHINGLES VACCINES (1 Met [facility] Test 12:09:25 of 2) [code = SHINGLES VACCINES (1 of 2)] Future Scheduled 2022-01-16 Screening for [facility] Test 12:09:25 malignant neoplasm of cervix (procedure) [code = [id number]] Future Scheduled 2022-01-16 BREAST CANCER [facility] Test 12:09:25 SCREENING [code = BREAST CANCER SCREENING] Future Scheduled 2022-01-16 COLONOSCOPY SCREENING [facility] Test 12:09:25 [code = COLONOSCOPY SCREENING] Future Scheduled 2022-01-16 HEPATITIS B VACCINES Met [facility] Test 12:09:25 (1 of 3 - Risk 3-dose series) [code = HEPATITIS B VACCINES (1 of 3 - Risk 3-dose series)] Future Scheduled 2022-01-16 COVID-19 VACCINE (3 - [facility] Test 12:09:25 Booster for Pfizer series) [code = COVID-19 VACCINE (3 - Booster for Pfizer series)] Future Scheduled 2022-01-16 65+ PNEUMOCOCCAL [facility] Test 12:09:25 VACCINE (4 - PPSV23 or PCV20) [code = 65+ PNEUMOCOCCAL VACCINE (4 - PPSV23 or PCV20)] Future Scheduled 2022-01-16 INFLUENZA VACCINE Method [facility] Test 12:09:25 [code = INFLUENZA VACCINE] Future Scheduled 2022-01-14 SHINGLES VACCINES (1 Met [facility] Test 04:11:46 of 2) [code = SHINGLES VACCINES (1 of 2)] Future Scheduled 2022-01-14 Screening for [facility] Test 04:11:46 malignant neoplasm of cervix (procedure) [code = [id number]] Future Scheduled 2022-01-14 BREAST CANCER [facility] Test 04:11:46 SCREENING [code = BREAST CANCER SCREENING] Future Scheduled 2022-01-14 COLONOSCOPY SCREENING [facility] Test 04:11:46 [code = COLONOSCOPY SCREENING] Future Scheduled 2022-01-14 HEPATITIS B VACCINES Met [facility] Test 04:11:46 (1 of 3 - Risk 3-dose series) [code = HEPATITIS B VACCINES (1 of 3 - Risk 3-dose series)] Future Scheduled 2022-01-14 COVID-19 VACCINE (3 - [facility] Test 04:11:46 Booster for Pfizer series) [code = COVID-19 VACCINE (3 - Booster for Pfizer series)] Future Scheduled 2022-01-14 65+ PNEUMOCOCCAL [facility] Test 04:11:46 VACCINE (4 - PPSV23 or PCV20) [code = 65+ PNEUMOCOCCAL VACCINE (4 - PPSV23 or PCV20)] Future Scheduled 2022-01-14 INFLUENZA VACCINE Method [facility] Test 04:11:46 [code = INFLUENZA VACCINE] Future Scheduled 2021-08-26 Screening for [facility] Test 13:02:23 malignant neoplasm of cervix (procedure) [code = [id number]] Future Scheduled 2021-08-26 BREAST CANCER [facility] Test 13:02:23 SCREENING [code = BREAST CANCER SCREENING] Future Scheduled 2021-08-26 COLONOSCOPY SCREENING [facility] Test 13:02:23 [code = COLONOSCOPY SCREENING] Future Scheduled 2021-08-26 Screening for [facility] Test 13:02:23 malignant neoplasm of lung (procedure) [code = [id number]] Future Scheduled 2021-08-26 SHINGLES VACCINES (#1) [facility] Test 13:02:23 [code = SHINGLES VACCINES (#1)] Future Scheduled 2021-08-26 COVID-19 VACCINE (3 - [facility] Test 13:02:23 Pfizer risk 4-dose series) [code = COVID-19 VACCINE (3 - Pfizer risk 4-dose series)] Future Scheduled 2021-08-26 65+ [facility] Test 13:02:23 VACCINE (4 of 4 - PPSV23) [code = 65+ PNEUMOCOCCAL VACCINE (4 of 4 - PPSV23)] Future Scheduled 2021-08-26 INFLUENZA VACCINE Method [facility] Test 13:02:23 [code = INFLUENZA VACCINE] Encounters Start End Encounter Admission Attending Care Care Encounter Source Date/Time Date/Time Type Type Clinicians Facility Department ID 2022-02-18 Outpatient [facility] [id number] [place] 14:30:[address] [place] [address] 2021-07-14 Outpatient SADIKOVIC, [facility] [id number] [place] 09:33:51 [facility] 2021-06-02 Outpatient HEMATPOUR, [facility] [id number] [place] 13:58:59 [facility] 2021-04-28 Outpatient HEMATPOUR, [facility] [id number] [place] 11:21:22 [facility] 2021-03-20 Emergency [facility] [id number] [facility] HEM[facility], [facility] [id number] [place] 08:16:46 [facility] 2020-10-31 Outpatient HEMATPOUR, [facility] [id number] [place] 09:44:50 [facility] 2020-09-30 Outpatient HEMATPOUR, [facility] [id number] [place] 13:16:03 [facility] 2022-03-05 2022-03-05 Site Director [facility] [id number] Univers 13:45:00 14:00:00 Visit Ronald Santiago [facility] [id number] [id number] [id number] [facility] [address] 2022-03-05 2022-03-05 Outpatient R [facility] [id number] Univers 13:45:00 13:45:00 [facility] 2022-02-26 2022-02-26 Outpatient R [facility] [id number] Univers 08:30:00 08:30:00 [facility] 2022-02-26 2022-02-26 Outpatient R [facility] [id number] Univers 08:30:00 08:30:00 [facility] 2022-02-17 2022-02-17 Transition ADELAIDE [facility] [id number] Univers 00:00:00 00:00:00 of Care Isaias LYNCH [id number] [id number] [id number] [facility] [address] 2022-02-10 2022-02-16 Inpatient [facility] [id number] Univers 22:59:00 19:27:00 TOMY barbosa [facility] 2022-02-10 2022-02-16 Hospital Reilly Means [facility] 1.2.840.1 14 [id number] Univers 22:59:00 19:27:00 Encounter Ofe Shields 350.1.13.10 ity of [place] 4.2.7.2.686 [place] [id number] [facility] 113 Branch ([facility]) 2022-02-11 2022-02-11 Telephone FRANCO Cardenas 1.2.840.114 [id number] Univers 00:00:00 00:00:00 [facility] 350.1.13.10 i ty of CL[place]ICS [place] [id number] [facility] 089 Branch 2022-01-30 2022-01-30 Telephone [facility] 1.2.840.114 96 [id number] Univers 00:00:00 00:00:00 [facility] 350.1.13.10 i ty of CL[place] 446.4275493 [facility] 089 Branch 2022-01-06 2022-01-06 Orders Doctor FERMIN 1.2.840.114 [id number] Univers 00:00:00 00:00:00 Only Unassigned, JACKELINE 350.1.13.10 ity of [place] [facility] 4.2.7.2.686 Yomi as [id number] [facility] 009 Branch 2021-12-25 2021-12-25 Orders Doctor FERMIN 1.2.840.114 [id number] Univers 00:00:00 00:00:00 Only Unassigned, JACKELINE 350.1.13.10 ity of [place] [facility] 4.2.7.2.686 Yomi as [id number] [facility] 009 Branch 2021-12-12 2021-12-13 Emergency X Bill COLES [facility] ERT [id number] Univers 23:53:00 01:52:00 ity of [facility] 2021-12-12 2021-12-13 Emergency Bill Coles [facility] 1.2.840.114 95 [id number] Univers 23:53:00 01:52:00 Kiersten BULLOCK 350.1.13.10 i ty of [place].2.7.2.[place] [id number] [facility] 084 Branch 2021-11-20 2021-11-20 Site Director [facility] 1.2.840.114 [id number] Univers 09:45:00 10:00:00 Visit Ronald [facility] 350.1.13.10 ity of CL[place]ICS 4.[place] [id number] [facility] 316 Branch 2021-11-20 2021-11-20 Office [facility] 1.2.360.986 2726 9084 Univers 08:30:00 09:00:00 Visit [facility] 350.1.13.10 i ty of [facility] 4.2.7.2.686 [place] [id number] [place] 893769 [place] 2021-11-20 2021-11-20 Outpatient R [facility] [id number] Univers 08:30:00 08:30:00 [facility] 2021-11-20 2021-11-20 Outpatient R [facility] [id number] Univers 08:30:00 08:30:00 [facility] 2021-11-20 2021-11-20 Outpatient R [facility] [id number] Univers 08:30:00 08:30:00 [facility] 2021-11-20 2021-11-20 Outpatient R [facility] [id number] Univers 08:30:00 08:30:00 [facility] 2021-10-24 2021-10-24 Emergency X [facility], [facility] ERT [id number] Univers 16:27:00 22:26:00 [facility] 2021-10-24 2021-10-24 Emergency X THEEJERMAINE, [facility] ERT [id number] Univers 16:27:00 22:26:00 [facility] 2021-10-24 2021-10-24 Emergency Reilly Means [facility] 1.2.840. 114 [id number] Univers 16:27:00 22:26:00 [facility] 350.1.13.10 ity [facility] 4.2.7.2.686 [place] [facility] [id number] [address] 2021-10-23 2021-10-24 Emergency X THEEJERMAINE, [facility] ERT [id number] Univers 20:22:00 02:57:00 [facility] 2021-10-23 2021-10-24 [facility] 1.2.743.062 [id number] [id number] Univers 20:22:00 02:57:00 Charity BULLOCK 350.1.13.10 ity of [place] 4.2.7.2.[place] [id number] [facility] 084 [place] 2021-09-07 2021-09-07 Outpatient R [facility] [id number] Univers 08:00:00 08:00:00 GADIEL rodas [facility] 2021-09-07 2021-09-07 Outpatient R [facility] [id number] Univers 08:00:00 08:00:00 GADIEL barbosa o [facility] 2021-08-21 2021-08-21 Outpatient R [facility] [id number] Univers 10:45:00 10:45:00 [facility] 2021-08-21 2021-08-21 Site Director Santiago Cradenas 1.2.840.1 [id number] Univers 10:45:00 10:45:00 Visit [facility] 08704.1.1 ity of 3.104.2.7 [place] .3.831745 Medica l .8 [place] 2021-08-21 2021-08-21 Office [facility], 1.2.840.0 [id number] Univers 08:30:00 09:00:00 Visit Santiago 81521.1.1 ity of 3.104.2.7 [place] .3.849310 Medica l .8 [place] 2021-08-21 2021-08-21 Office [facility] 1.2.539.189 0235 [id number] Univers 08:30:00 09:00:00 Visit [facility] 350.1.13.10 i ty of [facility] 4.2.7.2.686 [place] [id number] [facility] 089 [place] 2021-08-21 2021-08-21 Outpatient R [facility] [id number] Univers 08:30:00 08:30:00 SANTIAGO [facility] 2021-08-21 2021-08-21 Travel 1.2.840.1 1.2.285.101 6182 3865 Univers 00:00:00 00:00:00 51606.1.1 350.1.13.10 ity of 3.104.2.7 4.[place].7.3.698 [place] .3.411060 084.8 Medica l .8 [place] 2021-08-14 2021-08-14 Telephone East, 1.2.840.1 [id number] Univers 00:00:00 00:00:00 Santiago 85326.1.1 ity of 3.104.2.7 [place] .3.660177 Medica l .8 [place] 2021-08-13 2021-08-13 Telephone East, 1.2.840.0 [id number] Univers 00:00:00 00:00:00 Santiago 86440.1.1 ity of 3.104.2.7 [place] .3.368448 Medica l .8 [place] 2021-08-11 2021-08-11 Outpatient [facility] [id number] Univers 08:00:00 08:00:00 [facility] 2021-08-05 2021-08-05 Inpatient RAUL Lund, [facility] [id number] [facility] 05:24:00 05:24:00 Mike 31 [facility] 2021-07-20 2021-07-20 Outpatient [facility] [id number] Univers 10:00:00 10:00:00 [facility] 2021-07-14 2021-07-14 Office KIMBERLEY Lira 6400 1.2.840.114 13 [id number] ID 08:45:00 09:34:[address] 350.1.13.58 Health 9.2.7.2.686 [id number] 1 2021-07-09 2021-07-09 Telephone [place], UTP 6400 1.2.840.114 [id number] ID 00:00:00 00:00:[address] 350.1.13.58 Health 9.2.7.2.686 [id number] 1 2021-07-09 2021-07-09 Telephone [place], UTP 6400 1.2.840.114 [id number] ID 00:00:00 00:00:[address] 350.1.13.58 Health 9.2.7.2.686 [id number] 1 2021-07-03 2021-07-03 Outpatient R [facility] [id number] Univers 08:00:00 08:00:00 SANTIAGO barbosa [facility] 2021-06-17 2021-06-17 Inpatient RAUL Lund, [facility] INTE.02 [id number] [facility] 10:56:00 14:36:00 Mike 47 [facility] 2021-06-15 2021-06-15 Outpatient R [facility] [id number] Univers 10:15:00 11:07:21 GADIEL vogel [facility] 2021-06-15 2021-06-15 Outpatient R [facility] [id number] Univers 10:15:00 10:15:00 GADIEL vogel [facility] 2021-06-15 2021-06-15 Outpatient R [facility] [id number] Univers 10:15:00 10:15:00 GADIEL vogel [facility] 2021-06-15 2021-06-15 Orders Doctor 1.2.840.9 [id number] Univers 00:00:00 00:00:00 Only Unassigned, 32408.1.1 ity of [place] 3.104.2.7 [place] .3.077131 Medica l .8 Branch 2021-06-15 2021-06-15 Travel 1.2.840.1 1.2.578.536 3025 7719 Univers 00:00:00 00:00:00 54206.1.1 350.1.13.10 ity of 3.104.2.7 4.2.7.3.698 [place] .3.193701 084.8 Medica l .8 Branch 2021-06-11 2021-06-11 Refill East, UN[facility]ERS[facility] 1.2.632.395 2181 9185 Univers 00:00:00 00:00:00 Santiago Y HEALTH 350.1.13.10 i ty of CLINICS 4.2.7.2.[place] [id number] [place] 893769 [place] 2021-06-11 2021-06-11 Refill East, 1.2.840.3 [id number] 185 Univers 00:00:00 00:00:00 Santiago 70817.1.1 ity of 3.104.2.7 [place] .3.179679 Medica l .8 [place] 2021-06-05 2021-06-05 Outpatient R [facility] [id number] Univers 09:00:00 09:00:00 SANTIAGO ity of [facility] 2021-06-02 2021-06-02 Telephone East, [facility] 1.2.840.114 [id number] Univers 00:00:00 00:00:00 [facility] HEALTH 350.1.13.10 i ty of CLINICS 4.2.7.2.[place] [id number] [place] 893769 [place] 2021-06-02 2021-06-02 Telephone East, 1.2.840.3 [id number] [id number] Univers 00:00:00 00:00:00 Santiago 52402.1.1 ity of 3.104.2.7 [place] .3.665426 Medica l .8 Branch 2021-05-29 2021-05-29 Telephone East, 1.2.840.5 [id number] [id number] Univers 00:00:00 00:00:00 Santiago 03435.1.1 ity of 3.104.2.7 [place] .3.918083 Medica l .8 Branch 2021-05-29 2021-05-29 Telephone East, 1.2.840.8 [id number] 902 [id number] Univers 00:00:00 00:00:00 Santiago 16873.1.1 ity of 3.104.2.7 [place] .3.118943 Medica l .8 Branch 2021-05-25 2021-05-25 Outpatient R [facility] [id number] Univers 08:00:00 08:00:00 GADIEL rodas [facility] 2021-04-29 2021-04-29 Outpatient R LALA[facility] [id number] Univers 08:00:00 08:00:00 NIKOLAI barbosa of [facility] 2021-04-28 2021-04-28 Telephone Cadealeshia, 1.2.840.0 [id number] 21 [id number] Methodi 00:00:00 00:00:[address] 3.430.2.7 Hospit a .3.219087 l .8 2021-04-28 2021-04-28 Telephone Jailyn, 1.2.840.7 [id number] Methodi 00:00:00 00:00:[address] 3.430.2.7 Hospit a .3.264184 l .8 2021-04-28 2021-04-28 Telephone [place], [facility] 6400 1.2.840.114 [id number] ID 00:00:00 00:00:[address] 350.1.13.58 Health 9.2.7.2.686 [id number] 1 2021-03-31 2021-03-31 Orders Meisenbach, 1.2.840.1 [id number] 21 [id number] Methodi 00:00:00 00:00:00 Only Sarai M. 05576.1.1 979 s t 3.430.2.7 Hospit a .3.861546 l .8 2021-03-31 2021-03-31 Orders Meisenbach, 1.2.840.1 [id number] 21 [id number] Methodi 00:00:00 00:00:00 Only Sarai M. 61373.1.1 979 s t 3.430.2.7 Hospit a .3.131758 l .8 2021-03-30 2021-03-30 Outpatient R RODO[facility] [id number] Univers 08:45:00 08:45:00 GADIEL rodas [facility] 2021-03-24 2021-03-24 Telephone Jailyn, 1.2.840.0 [id number] 21 [id number] Methodi 00:00:00 00:00:[address] 3.430.2.7 Hospit a .3.773345 l .8 2021-03-24 2021-03-24 Telephone Jailyn, 1.2.840.6 [id number] 21 [id number] Methodi 00:00:00 00:00:[address] 3.430.2.7 Hospit a .3.231609 l .8 2021-02-13 2021-02-13 Telephone Ronald, 1.2.840.8 [id number] 876 [id number] Univers 00:00:00 00:00:00 Santiago 41460.1.1 ity of 3.104.2.7 [place] .3.842886 Medica l .8 [place] 2021-01-28 2021-01-28 Laure REEVES[facility] [id number] Univers 08:45:00 09:37:00 NIKOLAI ity of [facility] 2021-01-28 2021-01-28 Travel 1.2.840.1 1.2.642.756 4980 9777 [facility] 00:00:00 00:00:00 00909.1.1 350.1.13.10 ity of 3.104.2.7 4.2.7.3.698 [place] .3.099923 084.8 Medica l .8 [place] 2021-01-19 2021-01-19 Telephone Pelletier, 1.2.840.1 [id number] 2100 [id number] Methodi 00:00:00 00:00:[address] 3.430.2.7 Hospit a .3.922918 l .8 2021-01-04 2021-01-04 Dmitry Bass 1.2.840.6 [id number] 83490 696 Univers 00:00:00 00:00:00 (Out) Dagoberto Peterson 48563.1.1 ity of 3.104.2.7 [place] .3.238225 Medica l .8 [place] 2021-01-04 2021-01-04 Dmitry Bass 1.2.840.7 [id number] 64243 696 Univers 00:00:00 00:00:00 (Out) Dagoberto H 99370.1.1 ity of 3.104.2.7 [place] .3.842286 Medica l .8 Branch 2021-01-03 2021-01-03 Dmitry Bass, 1.2.840.3 [id number] 42505 790 Univers 00:00:00 00:00:00 (Out) Dagoberto H 13587.1.1 ity of 3.104.2.7 [place] .3.937519 Medica l .8 [place] 2021-01-03 2021-01-03 Dmitry Bass, 1.2.840.5 [id number] 75091 790 Univers 00:00:00 00:00:00 (Out) Dagoberto H 69630.1.1 ity of 3.104.2.7 [place] .3.880837 Medica l .8 [place] 2021-01-02 2021-01-02 Outpatient R [facility] [id number] Univers 13:40:00 13:40:00 ity of [facility] 2021-01-02 2021-01-02 Laboratory Cuba Franks 1.2.840.3 [id number] [id number] Univers 12:14:13 12:57:34 Only Lab, [facility] [place] 52187.1.1 ity of 3.104.2.7 [place] .3.788228 Medica l .8 [place] 2021-01-02 2021-01-02 Laboratory Cuba Franks 1.2.840.8 689189 7587 [id number] Univers 12:14:13 12:57:34 Only Lab, [place] 14251.1.1 ity of 3.104.2.7 [place] .3.457072 Medica l .8 [place] 2021-01-02 2021-01-02 Travel 1.2.840.1 1.2.432.654 6631 2306 Univers 00:00:00 00:00:00 06687.1.1 350.1.13.10 ity of 3.104.2.7 4.2.7.3.698 [place] .3.650026 084.8 Medica l .8 Branch 2021-01-02 2021-01-02 Letter Doctor 1.2.840.9 [id number] 03493 948 Univers 00:00:00 00:00:00 (Out) Unassigned, 96171.1.1 ity of [place] 3.104.2.7 [place] .3.626501 Medica l .8 [place] 2021-01-02 2021-01-02 Letter Doctor 1.2.840.9 [id number] 59234 946 Univers 00:00:00 00:00:00 (Out) Unassigned, 34211.1.1 ity of [place] 3.104.2.7 [place] .3.422109 Medica l .8 [place] 2021-01-02 2021-01-02 Travel 1.2.840.1 1.2.416.363 0890 2306 Univers 00:00:00 00:00:00 86975.1.1 350.1.13.10 ity of 3.104.2.7 4.2.7.3.698 [place] .3.373012 084.8 Medica l .8 [place] 2021-01-02 2021-01-02 Letter Doctor 1.2.840.0 [id number] 948 Univers 00:00:00 00:00:00 (Out) Unassigned, 87548.1.1 ity of [place] 3.104.2.7 [place] .3.246016 Medica l .8 [place] 2021-01-02 2021-01-02 Letter Doctor 1.2.840.4 [id number] 10575 946 Univers 00:00:00 00:00:00 (Out) Unassigned, 63441.1.1 ity of [place] 3.104.2.7 [place] .3.486243 Medica l .8 Branch 2020-12-22 2020-12-22 Telephone Devin, 1.2.840.4 [id number] 862 26384 Univers 00:00:00 00:00:00 Robbi R 24433.1.1 i ty of 3.104.2.7 [place] .3.992427 Medica l .8 Branch 2020-12-22 2020-12-22 Telephone Devin, 1.2.840.6 [id number] 862 59866 Univers 00:00:00 00:00:00 Robbi R 50901.1.1 i ty of 3.104.2.7 [place] .3.233448 Medica l .8 Branch 2020-12-12 2020-12-12 Office [place], [facility] 6400 1.2.840.114 12 [id number] 07:42:02 08:18:[address] 350.1.13.58 9.2.7.2.686 [id number] 1 2020-12-12 2020-12-12 Office [place], [facility] 6400 1.2.840.114 12 [id number] ID 07:42:02 08:18:50 [facility] 350.1.13.58 Health 9.2.7.2.686 590.6185504 1 2020-12-09 2020-12-09 Telephone [facility], 1.2.840.1 [id number] Methodi 00:00:00 00:00:00 Sarai M. 47913.1.1 316 s t 3.430.2.7 Hospit a .3.966737 l .8 2020-12-08 2020-12-08 [facility], 1.2.840.1 [id number] 2100 [id number] Methodi 12:35:54 23:59:00 Encounter Ray 92139.1.[address] 3.430.2.7 Hospit a .3.768771 l .8 2020-12-08 2020-12-08 [facility], 1.2.840.1 [id number] 45816 32991 Methodi 17:25:00 17:30:[address] 3.430.2.7 Hospit a .3.556299 l .8 2020-12-08 2020-12-08 Office [facility], 1.2.840.1 [id number] 03088 84967 Methodi 10:30:00 11:39:56 Visit Ray 93008.1.[address] 3.430.2.7 Hospit a .3.500683 l .8 2020-12-08 2020-12-08 Travel 1.2.840.1 1.2.073.603 6474 285351 Methodi 00:00:00 00:00:[address] 3.430.2.7 0.2.7.3.698 Ho spita .3.691780 084.8 l .8 2020-12-02 2020-12-02 Site Director Santiago Cardenas 1.2.840.1 [id number] Univers 10:20:06 10:36:19 Visit [facility] 74030.1.1 ity of 3.104.2.7 [place] .3.539261 Medica l .8 [place] 2020-12-02 2020-12-02 Site Director Santiago Cardenas 1.2.840.1 [id number] [facility] 10:20:06 10:36:19 Visit c-Lab 31738.1.1 ity of 3.104.2.7 [place] .3.931875 Medica l .8 [place] 2020-12-02 2020-12-02 Site Director [facility] 1.2.840.114 8 [id number] 10:20:06 10:36:19 Visit [facility] 350.1.13.10 CLINICS 4.2.7.2.686 408.4779549 316 2020-12-02 2020-12-02 Office Ronald 1.2.840.9 [id number] [id number] 528 Univers 08:31:37 09:01:37 Visit Santiago 23602.1.1 ity of 3.104.2.7 [place] .3.805252 Medica l .8 [place] 2020-12-02 2020-12-02 Outpatient R [facility] [id number] Univers 09:00:00 09:00:00 SANTIAGO ity of [facility] 2020-11-25 2020-11-25 Office Devin 1.2.840.0 [id number] 83707 865 Univers 11:06:30 11:58:14 Visit Robbi Hairston 50831.1.1 i ty of 3.104.2.7 [place] .3.253226 Medica l .8 Branch 2020-11-25 2020-11-25 Office Devin, 1.2.840.1 [id number] 62978 865 Univers 11:06:30 11:58:14 Visit Robbi Hairston 56048.1.1 i ty of 3.104.2.7 [place] .3.257011 Medica l .8 [place] 2020-11-25 2020-11-25 [facility] 1.2.840.114 [id number] 65 11:06:30 11:58:14 Visit Robbi Marika INTELLIGENCE DIRECTOR 350.1.13.10 REGIONAL 4.2.7.2.686 MATERNAL 604.8227561 & CHILD [address] [place] [address] 2020-11-25 2020-11-25 Outpatient R [facility] [id number] Univers 11:00:00 11:00:00 ity of [facility] 2020-11-25 2020-11-25 Telephone Devin, 1.2.840.5 [id number] 855 27448 Univers 00:00:00 00:00:00 Robbi Hairston 94361.1.1 i ty of 3.104.2.7 [place] .3.537773 Medica l .8 [place] 2020-11-25 2020-11-25 Refill [place], 1.2.840.2 [id number] 37667 592 Univers 00:00:00 00:00:00 Santiago 63551.1.1 ity of 3.104.2.7 [place] .3.427090 Medica l .8 [place] 2020-11-25 2020-11-25 Travel 1.2.840.1 1.2.779.000 2110 0247 Univers 00:00:00 00:00:00 10038.1.1 350.1.13.10 ity of 3.104.2.7 4.2.7.3.698 [place] .3.929683 084.8 Medica l .8 [place] 2020-11-25 2020-11-25 Orders Doctor 1.2.840.1 [id number] 64818 064 Univers 00:00:00 00:00:00 Only Unassigned, 10695.1.1 ity of [place] 3.104.2.7 [place] .3.157940 Medica l .8 Branch 2020-11-25 2020-11-25 Telephone [place], 1.2.840.8 [id number] 855 55938 Univers 00:00:00 00:00:00 Eligiondaleshia R 86873.1.1 i ty of 3.104.2.7 [place] .3.948788 Medica l .8 Branch 2020-11-25 2020-11-25 Refill [place], 1.2.840.9 [id number] 43058 592 Univers 00:00:00 00:00:00 Santiago 68793.1.1 ity of 3.104.2.7 [place] .3.661903 Medica l .8 Branch 2020-11-25 2020-11-25 Travel 1.2.840.1 1.2.258.527 1450 0247 Univers 00:00:00 00:00:00 07169.1.1 350.1.13.10 ity of 3.104.2.7 4.2.7.3.698 [place] .3.363755 084.8 Medica l .8 Branch 2020-11-25 2020-11-25 Orders Doctor 1.2.840.3 [id number] 86053 064 Univers 00:00:00 00:00:00 Only Unassigned, 81415.1.1 ity of [place] 3.104.2.7 [place] .3.169787 Medica l .8 Branch 2020-11-25 2020-11-25 [facility] 1.2.567.066 6035 4592 00:00:00 00:00:00 [facility] 350.1.13.10 CLINICS 4.2.7.2.686 628.9906119 089 2020-11-25 2020-11-25 Telephone [facility] 1.2.957.470 1884 0821 00:00:00 00:00:00 Amarilissandyheidialeshia Marika INTELLIGENCE DIRECTOR 350.1.13.10 [facility] 4.2.7.2.686 MATERNAL [id number] & CHILD [address] [place] [address] 2020-11-14 2020-11-14 Abstract Clark, 1.2.840.1 [id number] 58106 45718 Methodi 00:00:00 00:00:[address] 3.430.2.7 Hospit a .3.787989 l .8 2020-11-14 2020-11-14 Telephone Clark, 1.2.840.1 [id number] 2100 466116 Methodi 00:00:00 00:00:[address] 3.430.2.7 Hospit a .3.206627 l .8 2020-11-12 2020-11-12 Outpatient [facility] [id number] Univers 08:30:00 08:30:00 SANTIAGO barbosa [facility] 2020-11-07 2020-11-07 Telephone KIMBERLEY Ortiz 6400 1.2.840.114 124 [id number] 00:00:00 00:00:[address] 350.1.13.58 9.2.7.2.686 [id number] 1 2020-11-07 2020-11-07 Telephone Diana, Agustina UTP 6400 1.2.840.11 4 [id number] ID 00:00:00 00:00:00 Diana, Agustinaantonina [address]UIZ ST 350.1.13.58 Health 9.2.7.2.686 [id number] 1 2020-10-31 2020-10-31 Office Hematpour UTP 6400 1.2.840.114 12 [id number] ID 07:54:00 09:45:[address] 350.1.13.58 Health 9.2.7.2.686 [id number] 1 2020-10-30 2020-10-30 Abstract Rody Maguire UTP 6400 1.2.840.1 14 [id number] ID 00:00:00 00:00:[address] 350.1.13.58 Health 9.2.7.2.686 [id number] 1 2020-10-29 2020-10-29 Refill [place], 1.2.840.5 [id number] 69569 400 Univers 00:00:00 00:00:00 [place] 07582.1.1 ity of 3.104.2.7 [place] .3.059312 Medica l .8 [place] 2020-10-29 2020-10-29 Refill [place], 1.2.840.0 [id number] 400 Univers 00:00:00 00:00:00 [place] 54612.1.1 ity of 3.104.2.7 [place] .3.872715 Medica l .8 [place] 2020-10-27 2020-10-27 Telephone Jailyn, 1.2.840.5 [id number] Methodi 00:00:00 00:00:[address] 3.430.2.7 Hospit a .3.555936 l .8 2020-10-24 2020-10-24 Telephone Clark, 1.2.840.1 [id number] 2100 [id number] Methodi 00:00:00 00:00:[address] 3.430.2.7 Hospit a .3.513215 l .8 2020-10-22 2020-10-22 Outpatient R [facility] [id number] Univers 13:00:00 13:00:00 GADIEL vogel f [facility] 2020-10-22 2020-10-22 Travel 1.2.840.1 1.2.816.657 8697 3839 Univers 00:00:00 00:00:00 50569.1.1 350.1.13.10 ity of 3.104.2.7 [place].3.698 [place] .3.254327 084.8 Medica l .8 [place] 2020-10-22 2020-10-22 Travel 1.2.840.1 1.2.439.210 5725 3839 Univers 00:00:00 00:00:00 76673.1.1 350.1.13.10 ity of 3.104.2.7 [place].3.698 [place] .3.748205 084.8 Medica l 8 [place] 2020-10-13 2020-10-13 Outpatient R [facility] [id number] Univers 08:45:00 08:45:00 GADIEL ity o f [facility] 2020-10-06 2020-10-12 Telemedici [facility], 1.2.840.1 [id number] Methodi 15:30:00 00:08:46 ne Ray 00571.1.[address] 3.430.2.7 Hospit a .3.304403 l .8 2020-09-30 2020-09-30 [facility], 1.2.840.0 [id number] Methodi 00:00:00 00:00:[address] 3.430.2.7 Hospit a .3.371566 l .8 2020-09-21 2020-09-21 [facility] 1.2.840.1 1.2.388.999 1704 [id number] Methodi 00:00:00 00:00:[address] 3.430.2.7 0.2.7.3.698 Ho spita .3.850733 084.8 l .8 2020-09-06 2020-09-06 [facility] 1.2.840.1 [id number] 74745 73042 Methodi 17:42:30 23:59:[address] 3.430.2.7 Hospit a .3.666052 l .8 2020-09-06 2020-09-06 [facility], 1.2.840.1 [id number] 2100 [id number] Methodi 16:50:00 17:41:00 Encounter Ray 22111.1.[address] 3.430.2.7 Hospit a .3.347238 l .8 2020-09-05 2020-09-05 Hospital [facility], 1.2.840.1 [id number] 2100 [id number] Methodi 09:17:00 19:45:00 Encounter Ray [address]4539.1.[address] 3.430.2.7 Hospit a .3.280590 l .8 2020-09-05 2020-09-05 Surgery [facility], 1.2.840.1 [id number] Methodi 11:30:00 13:15:[address] 3.430.2.7 Hospit a .3.822566 l .8 2020-09-05 2020-09-05 Anesthesia Remigio, 1.2.840.1 [id number] 783 [id number] Methodi 11:27:00 12:20:00 Event Johnathanthi 06907.1.1 243 s t V. 3.430.2.7 Hospit a .3.756611 l .8 2020-09-05 2020-09-05 Travel 1.2.840.1 1.2.409.235 1256 [id number] Methodi 00:00:00 00:00:[address] 3.430.2.7 0.2.7.3.698 Ho spita .3.839191 084.8 l .8 2020-09-04 2020-09-04 Telephone Carol Ann, 1.2.840.1 [id number] Methodi 00:00:00 00:00:00 Sarai M. 27319.1.1 762 s t 3.430.2.7 Hospit a .3.366459 l .8 2020-09-02 2020-09-02 Telephone Carol Ann, 1.2.840.7 [id number] Methodi 00:00:00 00:00:00 Sarai M. 57674.1.1 344 s t 3.430.2.7 Hospit a .3.235867 l .8 2020-08-29 2020-08-[id number] 10:20:00 14:10:00 Outpatient r [place] 00 l [facility] 2020-08-29 2020-08-30 Outpatient [place], [facility] CAR [address] [facility] 05:20:00 09:10:00 [place] 2020-08-06 2020-08-06 Office [place], 1.2.840.7 [id number] Univers 08:03:23 09:17:49 Visit [place] 78901.1.1 ity of 3.104.2.7 [place] .3.294236 Medica l .8 [place] 2020-08-06 2020-08-06 Outpatient R [facility] [id number] Univers 08:30:00 08:30:00 SANTIAGO barbosa of [facility] 2020-07-14 2020-07-14 Outpatient R [facility] [id number] Univers 09:30:00 09:30:00 GADIEL rodas [facility] 2020-07-14 2020-07-14 Travel 1.2.840.1 1.2.755.531 [id number] [id number] Univers 00:00:00 00:00:00 61577.1.1 350.1.13.10 ity of 3.104.2.7 4[place]7.3.698 [place] .3.460748 084.8 Medica l .8 [place] 2020-07-14 2020-07-14 Orders Doctor 1.2.840.6 [id number] Univers 00:00:00 00:00:00 Only Unassigned, 53033.1.1 ity of [place] 3.104.2.7 [place] .3.336343 Medica l .8 [place] 2020-06-16 2020-06-16 Outpatient R [facility] [id number] Univers 08:00:00 08:00:00 GADIEL vogel f [facility] 2020-06-06 2020-06-06 Telephone East, 1.2.840.6 [id number] Univers 00:00:00 00:00:00 Santiago 07435.1.1 ity of 3.104.2.7 [place] .3.764714 Medica l .8 [place] 2020-06-04 2020-06-04 Site Director Santiago Cardenas 1.2.840.1 [id number] Univers 09:31:58 09:40:12 Visit [facility] 35351.1.1 ity of 3.104.2.7 [place] .3.057103 Medica l .8 [place] 2020-06-04 2020-06-04 Office Ronald [facility] 1.2.701.773 [id number] Univers 08:13:41 09:28:25 Visit Santiago [facility] 350.1.13.10 i ty of CLINICS 4.2.7.2.686 Richi bach [id number] [facility] 089 [place] 2020-06-04 2020-06-04 Outpatient R [facility] [id number] Univers 08:30:00 08:30:00 SANTIAGO ity of [facility] 2020-06-04 2020-06-04 Orders Doctor 1.2.840.7 [id number] Univers 00:00:00 00:00:00 Only Unassigned, 12436.1.1 ity of [place] 3.104.2.7 [place] .3.024886 Medica l .8 [place] 2020-05-19 2020-05-19 Telephone Ronald, 1.2.840.8 [id number] Univers 00:00:00 00:00:00 Santiago 84523.1.1 ity of 3.104.2.7 [place] .3.780498 Medica l .8 [place] 2020-04-24 2020-04-24 Telephone East, 1.2.840.8 [id number] Univers 00:00:00 00:00:00 Santiago 81032.1.1 ity of 3.104.2.7 [place] .3.140247 Medica l .8 [place] 2020-04-14 2020-04-14 Outpatient R [facility] [id number] Univers 09:00:00 09:00:00 SANTIAGO ity of [facility] 2020-04-14 2020-04-14 Tele[address] [facility], 1.2.840.2 [id number] Univers 00:00:00 00:00:00 Santiago 85330.1.1 ity of 3.104.2.7 [place] .3.039794 Medica l .8 [place] 2020-03-31 2020-03-31 Outpatient R [facility] [id number] Univers 08:30:00 08:30:00 SANTIAGO ity of [facility] 2020-03-03 2020-03-03 Outpatient R [facility] [id number] Univers 08:00:00 08:00:00 GADIEL barbosa o f [facility] 2020-03-03 2020-03-03 Outpatient R [facility] [id number] Univers 08:00:00 08:00:00 GADIEL barbosa o f [facility] 2020-03-03 2020-03-03 Travel 1.2.840.1 1.2.384.459 [id number] Univers 00:00:00 00:00:00 56472.1.1 350.1.13.10 ity of 3.104.2.7 [place].3.698 [place] .3.358240 084.8 Medica l .8 [place] 2020-02-06 2020-02-06 Telephone East, 1.2.840.0 [id number] Univers 00:00:00 00:00:00 Santiago 66243.1.1 ity of 3.104.2.7 [place] .3.617962 Medica l .8 [place] 2020-01-26 2020-01-26 Emergency Caridad, 1.2.840.5 [id number] Univers 10:03:00 13:05:00 Cynise 62892.1.1 ity of 3.104.2.7 [place] .3.609150 Medica l .8 [place] 2020-01-26 2020-01-26 Travel 1.2.840.1 1.2.283.839 [id number] Univers 00:00:00 00:00:00 35910.1.1 350.1.13.10 ity of 3.104.2.[place]3.698 [place] .3.109[place] 084.8 Medica l .8 [place] 2020-01-25 2020-01-25 Outpatient R [facility] [id number] Univers 08:30:00 08:30:00 SANTIAGO ity of [facility] 2020-01-25 2020-01-25 Telemedici [place], 1.2.840.1 [id number] Univers 07:36:49 08:06:49 ne Visit Santiago 00602.1.1 ity of 3.104.2.7 [place] .3.305994 Medica l .8 [place] 2020-01-16 2020-01-16 Outpatient R [facility] [id number] Univers 08:00:00 08:00:00 SANTIAGO ity [facility] 2020-01-16 2020-01-16 Telephone East, 1.2.840.3 [id number] Univers 00:00:00 00:00:00 Santiago 06678.1.1 ity of 3.104.2.7 [place] .3.504180 Medica l .8 [place] 2020-01-14 2020-01-14 Outpatient R [facility] [id number] Univers 08:00:00 08:00:00 GADIEL maciely o f [facility] 2019-12-31 2019-12-31 Outpatient [facility] [id number] Univers 08:45:00 08:45:00 GADIEL maciely o f [facility] 2019-10-17 2019-10-17 Outpatient [facility] [id number] Univers 08:30:00 08:30:00 SANTIAGO ity [facility] 2019-10-12 2019-10-12 Outpatient R [facility] [id number] Univers 13:00:00 13:00:00 SANTIAGO ity [facility] 2019-10-12 2019-10-12 Telemedici [place], 1.2.840.0 [id number] Univers 07:38:30 08:08:30 ne Visit Santiago 14806.1.1 ity of 3.104.2.7 [place] .3.854903 Medica l .8 [place] 2019-10-08 2019-10-08 Outpatient R [facility] [id number] Univers 10:15:00 10:15:00 GADIEL ity o f [facility] 2019-10-03 2019-10-03 Case Xiao, 1.2.840.6 [id number] Univers 00:00:00 00:00:00 Management Michael Corbin 71591.1.1 i ty of 3.104.2.7 [place] .3.376546 Medica l .8 [place] 2019-09-27 2019-09-27 Telephone East, 1.2.840.5 [id number] Univers 00:00:00 00:00:00 Santiago 61027.1.1 ity of 3.104.2.7 [place] .3.145256 Medica l .8 [place] 2019-09-04 2019-09-04 Refill [place], 1.2.840.2 [id number] Univers 00:00:00 00:00:00 Santiago 40846.1.1 ity of 3.104.2.7 [place] .3.685848 Medica l .8 [place] 2019-07-24 2019-07-24 Outpatient R [facility] [id number] Univers 08:30:00 08:30:00 SANTIAGO ity [facility] 2019-07-17 2019-07-17 [facility] [id number] Univers 10:00:00 10:00:00 SANTIAGO ity [facility] 2019-06-15 2019-06-15 Telephone East, 1.2.840.4 [id number] Univers 00:00:00 00:00:00 Santiago 41616.1.1 ity of 3.104.2.7 [place] .3.344706 Medica l .8 [place] 2019-06-13 2019-06-13 Telephone Team, [facility] 1.2.840.8 [id number] Univers 00:00:00 00:00:00 Health 89124.1.1 [place] .3.5297[place] Med[place] .8 [place] 2019-05-10 2019-05-10 Refill [place], 1.2.840.4 [id number] Univers 00:00:00 00:00:00 Santiago 77875.1.1 ity of 3.104.2.7 [place] .3.520109 Medica l .8 [place] 2019-05-09 2019-05-09 Refill Ronald, 1.2.840.1 [id number] Univers 00:00:00 00:00:00 Santiago 65841.1.1 ity of 3.104.2.7 [place] .3.557712 Medica l .8 [place] 2019-04-30 2019-04-30 Outpatient R [facility] [id number] Univers 10:15:00 10:33:05 GADIEL ity o f [facility] 2019-04-18 2019-04-18 Site Director Santiago Cardenas 1.2.840.1 [id number] Univers 10:00:39 10:44:31 Visit [facility] 09994.1.1 ity of 3.104.2.7 [place] .3.675950 Medica l .[address] [place] [address] 2019-04-18 2019-04-18 Outpatient R [facility] [id number] Univers 10:00:00 10:44:31 SANTIAGO ity of [facility] 2019-04-18 2019-04-18 Office Ronald, 1.2.840.5 [id number] Univers 08:27:44 09:53:27 Visit Santiago 35408.1.1 ity of 3.104.2.7 [place] .3.855173 Medica l .[address] [place] [address] 2019-04-18 2019-04-18 Orders Doctor 1.2.840.2 [id number] Univers 00:00:00 00:00:00 Only Unassigned, 22870.1.1 ity of [place] 3.104.2.7 [place] .3.882406 Medica l .8 [place] 2019-04-11 2019-04-11 Refill Ronald, 1.2.840.5 [id number] Univers 00:00:00 00:00:00 Santiago 54883.1.1 ity of 3.104.2.7 [place] .3.158673 Medica l .8 [place] 2019-04-09 2019-04-09 Refill East, 1.2.840.0 [id number] Univers 00:00:00 00:00:00 Santiago 57893.1.1 ity of 3.104.2.7 [place] .3.878820 Medica l .8 [place] 2019-04-03 2019-04-03 Telephone Team, [facility] 1.2.840.0 [id number] Univers 00:00:00 00:00:00 Health 38290.1.1 [place] .3.359184 Med[place] .8 [place] 2019-03-27 2019-03-27 Telephone Self, 1.2.840.8 [id number] Univers 00:00:00 00:00:00 Gadiel 13910.1.1 ity of 3.104.2.7 [place] .3.898164 Medica l .8 [place] 2019-01-17 2019-01-17 Office Ronald, 1.2.840.7 [id number] Univers 07:37:21 10:32:51 Visit Santiago 41757.1.1 ity of 3.104.2.7 [place] .3.162085 Medica l .8 [place] 2019-01-04 2019-01-12 Office Tyrone Eveline 1.2.840.7 [id number] Univers 11:19:32 11:08:05 Visit Mariela 63461.1.1 ity of 3.104.2.7 [place] .3.159399 Medica l .8 [place] 2019-01-10 2019-01-10 Telephone Stanislav, 1.2.840.7 [id number] Univers 00:00:00 00:00:00 Eladio Inman 53517.1.1 ity of 3.104.2.7 [place] .3.360321 Medica l .8 [place] 2018-12-18 2018-12-18 Office Geraldine, 1.2.840.0 [id number] Univers 08:48:45 09:13:43 Visit Leyda 14878.1.1 it y of 3.104.2.7 [place] .3.869642 Medica l .8 [place] 2018-10-30 2018-10-30 Telephone East, 1.2.840.8 [id number] Univers 00:00:00 00:00:00 [place] 92052.1.1 ity of 3.104.2.7 [place] .3.612508 Medica l .8 [place] 2018-10-23 2018-10-23 Orders Doctor 1.2.840.5 [id number] Univers 00:00:00 00:00:00 Only Unassigned, 97127.1.1 ity of [place] 3.104.2.7 [place] .3.116780 Medica l .8 [place] 2018-10-23 2018-10-23 Nurse Selvin, 1.2.840.9 [id number] Univers 00:00:00 00:00:00 Triage Stefanie 15226.1.1 ity of 3.104.2.7 [place] .3.422928 Medica l .8 [place] 2018-10-23 2018-10-23 Telephone Self, 1.2.840.1 [id number] Univers 00:00:00 00:00:00 Gadiel 43024.1.1 ity of 3.104.2.7 [place] .3.330503 Medica l .8 [place] 2018-10-20 2018-10-20 Telephone Self, 1.2.840.5 [id number] Univers 00:00:00 00:00:00 Gadiel 68236.1.1 ity of 3.104.2.7 [place] .3.323761 Medica l .8 [place] Results Test Description Test Time Test Comments Results Result Comments Source BLOOD CULTURE SCREEN 2022-02-16 06:01:07 Test Item Value Reference Range Interpretation Comme nts Blood Culture-Aerobic (test No organisms isolated No growth Previous preliminary code = 49818-6) verified res ult was Culture In Prog ress on 02/11/2022 at 04 01 CDTPrevious pre liminary verified result was No growth at 24 ho urs on 02/12/2022 at 01 CDTPrevious pre liminary verified result was No growth at 48 ho urs on 02/13/2022 at 01 01 CDTPrevious pre liminary verified result was No growth at 72 ho urs on 02/14/2022 at 01 01 CDT Blood Culture-Anaerobic No organisms isolated No growth Previous preliminary (test code = 43911-0) verifi ed result was Culture In Prog ress on 02/11/2022 at 04 01 CDTPrevious pre liminary verified result was No growth at 24 ho urs on 02/12/2022 at 05 23 CDTPrevious pre liminary verified result was No growth at 48 ho urs on 02/13/2022 at 05 23 CDTPrevious pre liminary verified result was No growth at 72 ho urs on 02/14/2022 at 05 23 CDT Lab Interpretation (test Normal code = 76547-6) [facility] [id number] 06:01:07 Test Item Value Reference Range Interpretation Comments Blood Culture-Aerobic No organisms No growth Previo us (test code = 67829-5) isolated prelim inary verified result was Culture In Progress on 02/11/2022 at 08 21 CDTPrevious preliminary verified result was No growth a t 24 hours on 02/12/2022 at 05 23 CDTPrevious preliminary verified result was No growth a t 48 hours on 02/13/2022 at 05 23 CDTPrevious preliminary verified result was No growth a t 72 hours on 02/14/2022 at 01 CDT Blood No organisms No growth Previous Culture-Anaerobic isolated preliminar y (test code = 45120-6) verifi ed result was Culture In Progress [...] CDT Lab Interpretation Normal (test code = 53378-1) [facility] [id number] 10:49:10 Test Item Value Reference Range Interpretation Comments NT-proBNP (test code 2660 pg/mL See_Comment H [Autom ated = 6175639390) message] The system which generated this result transmitted reference range : <=125. The reference range was not used to interpret this result as normal/abnormal . KYLE (test code = KYLE) Biotin has been reported to cause a negative bias, interpret results relative to patient's use of biotin. Lab Interpretation Abnormal (test code = 71494-0) [facility] METABOLIC PANEL (NA, K, CL, CO2, GLUCOSE, BUN, CREATININE, CA)2022-02-15 10:44:07 Test Item Value Reference Range Interpretation Comments NA (test code = 134 mmol/L 135-145 L 2811281700) K (test code = 3.2 mmol/L 3.5-5 L 8107746936) CL (test code = 98 mmol/L 98-108 5289614378) CO2 TOTAL (test code = 27 mmol/L 23-31 5668478568) AGAP (test code = 2-16 9171807602) BUN (test code = 19 mg/dL 7-23 4531634279) GLUCOSE (test code = 102 mg/dL 70-110 8135583684) CREATININE (test code = 0.95 mg/dL 0.5-1.04 2798452676) CALCIUM (test code = 8.5 mg/dL 8.6-10.6 L 9353853934) eGFR (test code = mL/min/1.73m2 8712056800) KYLE (test code = KYLE) Association of [...] tests). Lab Interpretation Abnormal (test code = 38166-0) [facility] 10:44:07 Test Item Value Reference Range Interpretation Comments MAGNESIUM (test code = 5818750037) 1.8 mg/dL 1.7-2.4 Lab Interpretation (test code = Normal 74113-7) [facility] WITH [id number] 10:12:06 Test Item Value Reference Range Interpretation [...] RDW-SD (test code = 47.8 fL 39-49.9 38574-3) RDW-CV (test code = 15.2 % 12-15.5 788-0) PLT (test code = See_Comment L [Automated 777-3) message] The sy stem which generated this result transmitted reference range : 166 - 358 10*3/ ?L. The reference r abbey was not used to interpret this result as normal/abnormal . MPV (test code = 8.9 fL 9.5-12.9 L 13359-3) NRBC/100 WBC (test See_Comment [Automat ed code = 3431809014) message] The system which generated this result transmitted reference range : 0.0 - 10.0 /100 WBCs. The refer ence range was not u sed to interpret th is result as normal/abnormal . NRBC x10^3 (test code See_Comment [Auto mated = 2985232898) message] The s ystem which generated this result transmitted reference range : 10*3/?L. The reference range was not used to interpret this result as normal/abnormal . GRAN MAT (NEUT) % 65.9 % (test code = 770-8) IMM GRAN % (test code 0.30 % = 1881792607) LYMPH % (test code = 21.0 % 736-9) MONO % (test code = 10.1 % 5905-5) EOS % (test code = 2.4 % 713-8) BASO % (test code = 0.3 % 706-2) GRAN MAT x10^3(ANC) 2.49 10*3/uL 1.88-7.09 (test code = 3665214010) IMM GRAN x10^3 (test 0-0.06 code = 1750527659) LYMPH x10^3 (test code 0.79 10*3/uL 1.32-3.29 L = 731-0) MONO x10^3 (test code 0.38 10*3/uL 0.33-0.92 = 742-7) EOS x10^3 (test code = 0.09 10*3/uL 0.03-0.39 711-2) BASO x10^3 (test code 0.01-0.07 = 704-7) Lab Interpretation Abnormal (test code = 91788-6) [facility] WITH [id number] 11:18:28 Test Item Value Reference Range Interpretation [...] RDW-SD (test code = 49.5 fL 39-49.9 77916-6) RDW-CV (test code = 15.5 % 12-15.5 788-0) PLT (test code = See_Comment L [Automated 777-3) message] The sy stem which generated this result transmitted reference range : 166 - 358 10*3/ ?L. The reference r abbey was not used to interpret this result as normal/abnormal . MPV (test code = 11.4 fL 9.5-12.9 08995-7) IPF % (test code = 8.7 % 1.3-7.7 H Platelet count 0757609089) measured by fluorescence method. NRBC/100 WBC (test See_Comment [Automat ed code = 4928556066) message] The system which generated this result transmitted reference range : 0.0 - 10.0 /100 WBCs. The refer ence range was not u sed to interpret th is result as normal/abnormal . NRBC x10^3 (test code See_Comment [Auto mated = 9250385856) message] The s ystem which generated this result transmitted reference range : 10*3/?L. The reference range was not used to interpret this result as normal/abnormal . GRAN MAT (NEUT) % 62.0 % (test code = 770-8) IMM GRAN % (test code 0.80 % = 3165164902) LYMPH % (test code = 22.2 % 736-9) MONO % (test code = 9.6 % 5905-5) EOS % (test code = 5.1 % 713-8) BASO % (test code = 0.3 % 706-2) GRAN MAT x10^3(ANC) 2.21 10*3/uL 1.88-7.09 (test code = 5471452596) IMM GRAN x10^3 (test 0.03 10*3/uL 0-0.06 code = 8413623766) LYMPH x10^3 (test code 0.79 10*3/uL 1.32-3.29 L = 731-0) MONO x10^3 (test code 0.34 10*3/uL 0.33-0.92 = 742-7) EOS x10^3 (test code = 0.18 10*3/uL 0.03-0.39 711-2) BASO x10^3 (test code 0.01-0.07 = 704-7) POLYCHROMASIA (test 2+ See_Comment [Automa arpit code = 68809-2) message] The system which generated this result [...] . Lab Interpretation Abnormal (test code = 18428-4) [facility] METABOLIC PANEL (NA, K, CL, CO2, GLUCOSE, BUN, CREATININE, CA)2022-02-13 10:39:07 Test Item Value Reference Range Interpretation Comments NA (test code = 136 mmol/L 135-145 9462494376) K (test code = 4.1 mmol/L 3.5-5 8068163721) CL (test code = 102 mmol/L 98-108 6971713522) CO2 TOTAL (test code = 27 mmol/L 23-31 1895226755) AGAP (test code = 2-16 0409090790) BUN (test code = 22 mg/dL 7-23 9129028848) GLUCOSE (test code = 94 mg/dL 70-110 8352729941) CREATININE (test code = 0.94 mg/dL 0.5-1.04 6397839590) CALCIUM (test code = 8.1 mg/dL 8.6-10.6 L 3598547872) eGFR (test code = mL/min/1.73m2 5083845013) KYLE (test code = KYLE) Association of [...] tests). Lab Interpretation Abnormal (test code = 94718-5) [facility]2022-[facility]-12 01:50:10 Test Item Value Reference Range Interpretation Comments Height (test code = in 9371946516) Weight (test code = lbs 5125421963) Systolic BP (test code mmHg = 8693268722) Diastolic BP (test code mmHg = 9032139957) Heart Rate (test code = bpm 7793971268) BSA (test code = 1.85 m2 6660496651) IVS (test code = 1.22 cm 1329373022) Interventricular Septum 1.22 cm Diastolic Thickness by 2D (test code = 2519389) LVIDD (test code = 5.00 cm 0567669659) Left Ventricular End 117.9 mL Diastolic Volume by Teichholz Method (test code = 9356043) LVPWD (test code = 1.22 cm 0222771022) PW (test code = 1.22 cm 0.6-1.6 3342843905) EF(Teich) (test code = 74.60 % 9987904850) LVIDS (test code = 2.80 cm 6775447742) Left Ventricular End 29.9 mL Systolic Volume by Teichholz Method (test code = 3704157) FS (test code = 44 % 3207965533) EF - 2D (test code = 74.60 % 31378804) LVOT diameter (test 2.16 cm code = 8604246493) LVOT area (test code = 3.70 cm2 6601643333) Ao root diam (test code 3.40 cm = 0182007604) Aortic root (test code 3.4 cm = 1968409030) Ao root annulus (test 3.4 cm code = 3918441687) LA size (test code = 3.4 cm 3365118456) TR Peak Spencer (test code 330.0 cm/s = 6602949972) Triscuspid Valve mmHg Regurgitation Peak Gradient (test code = 2203874004) PV REGURGITATION PEAK mmHg GRADIENT (test code = 2414735225) PI dec slope (test code 137.20 cm/s2 = 2672327244) LAV(MOD-sp4) (test code 102.90 mL = 7032505712) MV Peak E Spencer (test 84.1 cm/s code = 1075118465) MV Peak A Spencer (test 40.1 cm/s code = 9752433792) E/A ratio (test code = ratio 8087008133) MV valve area p 1/2 3.70 cm2 method (test code = 5199758193) MV dec slope (test code 413.00 cm/s2 = 2210524856) MV P1/2t max spencer (test 83.70 cm/s code = 2664541741) MV Prop V (test code = 41.80 cm/s 6431506918) Tapse (test code = 1.83 cm 2645025368) LVOT stroke volume 96.90 cm3 (test code = 7667614000) LVOT peak spencer (test 125.5 cm/s code = 6423948989) LVOT mn grad (test code mmHg = 3942051589) AV LVOT peak gradient mmHg (test code = 1509462871) LVOT peak VTI (test 26.4 cm code = 7777597281) LV V1 mean (test code = 78.10 cm/s 3735396639) Aortic valve mean 103.7 cm/s velocity (test code = 1416754869) Ao peak spencer (test code 165.6 cm/s = 4639433453) Ao VTI (test code = 37.2 cm 4814482002) AV area by cont VTI 2.6 cm2 (test code = 0682667533) AV area peak spencer (test 2.8 cm2 code = 2909812446) Ao max PG (test code = 11.00 mm[Hg] 0469719058) AV peak gradient (test mmHg code = 4488518014) AV valve area (test 2.60 cm2 code = 9640444614) AV mean gradient (test mmHg code = 8546768253) LA Volume Index (BP) 55.2 mL/m2 (test code = 9461248868) LA volume (BP) (test 102.1 mL code = 7788234440) LAV(MOD-sp2) (test code 86.10 mL = 3321303463) A2C EF (test code = 61.20 % 9654209323) EF(sp2-el) (test code = 61.60 % 5184231450) SV(MOD-sp2) (test code 47.10 mL = 6459142647) LV Diastolic Volume 70.7 mL (BP) (test code = 3977820801) A4C EF (test code = 53.00 % 6827747275) EF(MOD-bp) (test code = 56.70 % 9129875816) EF(sp4-el) (test code = 53.90 % 3204322050) LV Systolic Volume (BP) 30.6 mL (test code = 8405731586) SV(MOD-bp) (test code = 40.10 mL 3815436746) SV(MOD-sp4) (test code 32.40 mL = 1212928273) SV(sp4-el) (test code = 33.10 mL 5472779361) EF (test code = 3651119963) Left Ventricular Stroke 40.1 mL Volume by 2-D Biplane-MOD (test code = 4694898) LV Diastolic Volume 38.2 mL/m2 Index (BP) (test code = 0259751946) LV Systolic Volume 16.5 mL/m2 Index (BP) (test code = 7832004050) Radiology Study observation (narrative) (test code = 71198-6) KYLE (test code = KYLE) ?Left?Ventricle: Left [...] 1.00The left ventricular wall motion is normal. [facility] [id number] 05:45:01 Test Item Value Reference Interpretation Comments Range TROPONIN I (test See_Comment [Automated code = 6326311885) message] The system which generated this result [...] biotin. Lab Interpretation Normal (test code = 68923-1) [facility] [id number] 05:41:40 Test Item Value Reference Range Interpretation Comments NT-proBNP (test code 4250 pg/mL See_Comment H [Autom ated = 0380420680) message] The system which generated this result transmitted reference range : <=125. The reference range was not used to interpret this result as normal/abnormal . KYLE (test code = KYLE) Biotin has been reported to cause a negative bias, interpret results relative to patient's use of biotin. Lab Interpretation Abnormal (test code = 38811-6) [facility]ACT[facility]IAL THRMPLAS [id number] 05:35:21 Test Item Value Reference Range Interpretation Comments APTT Patient (test See_Comment [Automat ed code = 3173-2) message] The system which generated this result transmitted reference range : 23 - 38 Seconds . The reference range was not used to interpr et this result as normal/abnormal . KYLE (test code = KYLE) The [facility] patient population mean normal value for aPTT is 30 seconds. Lab Interpretation Normal (test code = 08420-9) [facility]PROT[facility] TIME / [id number] 05:33:21 Test Item Value Reference Range Interpretation [...] tions. Lab Interpretation (test Normal code = 09830-2) [facility]ABOLIC PANEL (04771)2022-02-11 05:33:21 Test Item Value Reference Range Interpretation Comments NA (test code = 137 mmol/L 135-145 [id number]) K (test code = 4.3 mmol/L 3.5-5 3211886106) CL (test code = 103 mmol/L 98-108 0118459197) CO2 TOTAL (test code = 25 mmol/L 23-31 1792555674) AGAP (test code = 2-16 8719178642) BUN (test code = 19 mg/dL 7-23 0074722735) GLUCOSE (test code = 120 mg/dL 70-110 H 8123789940) CREATININE (test code = 1.15 mg/dL 0.5-1.04 H 7183080922) TOTAL BILI (test code = 0.9 mg/dL 0.1-1.0 4052915879) CALCIUM (test code = 8.9 mg/dL 8.6-10.6 4456445217) T PROTEIN (test code = 6.6 g/dL 6.3-8.2 9459479006) ALBUMIN (test code = 4.0 g/dL 3.5-5 9210143054) ALK PHOS (test code = 73 U/L 34-122 7090749350) ALTv (test code = 18 U/L 5-35 1742-6) AST(SGOT) (test code = 31 U/L 13-40 6687142975) eGFR (test code = mL/min/1.73m2 9434356539) KYLE (test code = KYLE) Association of [...] tests). Lab Interpretation Abnormal (test code = 24183-7) [facility] WITH [id number] 05:14:37 Test Item Value Reference Range Interpretation Comments WBC (test code = See_Comment [Automated 7990-2) message] The sy stem which generated this [...] RDW-SD (test code = 47.9 fL 39-49.9 77244-4) RDW-CV (test code = 14.9 % 12-15.5 788-0) PLT (test code = See_Comment L [Automated 777-3) message] The sy stem which generated this result transmitted reference range : 166 - 358 10*3/ ?L. The reference r abbey was not used to interpret this result as normal/abnormal . MPV (test code = 9.1 fL 9.5-12.9 L 12146-3) NRBC/100 WBC (test See_Comment [Automat ed code = [id number]) message] The system which generated this result transmitted reference range : 0.0 - 10.0 /100 WBCs. The refer ence range was not u sed to interpret th is result as normal/abnormal . NRBC x10^3 (test code See_Comment [Auto mated = 3928134888) message] The s ystem which generated this result transmitted reference range : 10*3/?L. The reference range was not used to interpret this result as normal/abnormal . GRAN MAT (NEUT) % 78.5 % (test code = 770-8) IMM GRAN % (test code 0.20 % = 8358857813) LYMPH % (test code = 11.6 % 736-9) MONO % (test code = 8.4 % 5905-5) EOS % (test code = 1.1 % 713-8) BASO % (test code = 0.2 % 706-2) GRAN MAT x10^3(ANC) 3.45 10*3/uL 1.88-7.09 (test code = 2840165203) IMM GRAN x10^3 (test 0-0.06 code = 7663622041) LYMPH x10^3 (test code 0.51 10*3/uL 1.32-3.29 L = 731-0) MONO x10^3 (test code 0.37 10*3/uL 0.33-0.92 = 742-7) EOS x10^3 (test code = 0.05 10*3/uL 0.03-0.39 711-2) BASO x10^3 (test code 0.01-0.07 = 704-7) Lab Interpretation Abnormal (test code = 29545-5) [facility] Coronavirus 2019 Cnhhtmx2733-93-65 18:08:00 Test Item Value Reference Range Interpretation [...] det ection of nucleic acids f rom ozsLPGD-HbW-4 v irus and diagnosis of SA RS-CoV-2 virusinfection. It is an Emergency Use Authorization ( EUA) testauthorized by the U.S. FDA. BASIC METABOLIC UAZHN0620-12-85 09:37:00 Test Item Value Reference Range Interpretation [...] = 9.0 mg/dL 8.0-10.5 N CA) PROTHROMBIN [id number] 09:32:00 Test Item Value Reference Range Interpretation [...] (to prevent recurrent infar ct). 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 [facility] - XR CHEST 1 [id number] 00:00:00 [facility] : 1955 Sex: F FAX: Carmenza Kelly DO [phone] [place]: St: ADM FAX: Mike Scales MD [phone] FAX: Bahman Chopra [phone] Name: LIO WATTS [facility] : 1955 Age/S: 66/F [address] [place] [address] Blvd Unit #: [id number] Loc: [place] Bernstein [address] Phys: Bahman Chopra Acct: [id number] Dis Date: Status: ADM IN PHONE #: [phone] Exam Date: 06/17/2021 1320 FAX #: [phone] Reason: WATCHMAN EXAMS: CPT CODE: [id number] XR CHEST 1 V 85861 PROCEDURE INFORMATION: Exam: XR Chest Exam date [...] Technologist: Jass Moreno RT(R) Trnscrd Date/Time/By: 06/17/2021 (6559) : By: [email or web address] Orig Print D/T: S: 06/17/2021 (2987) PAGE 1 Signed ReportCOVID 19 Asymptomatic IH [id number] 12:29:00 Test Item Value Reference Range Interpretation [...] high or waivedcomplexit y tests. BASIC METABOLIC [id number] 11:37:00 Test Item Value Reference Range Interpretation [...] code = 9.0 mg/dL 8.0-10.5 N CA) MEZQWUUZLA4534-05-94 11:37:00 Test Item Value Reference Range Interpretation Comments PREALBUMIN (test code = PREALB) 24.3 mg/dL 16.0-40.0 N PROTHROMBIN [id number] 11:03:00 Test Item Value Reference Range Interpretation [...] (to prevent recurrent infar ct). CBC W/AUTO [id number] 10:59:00 Test Item Value Reference Range Interpretation [...] 0.0-0.1 N NRBC#) - XR CHEST 2 [id number] 00:00:00 [facility] : 1955 Sex: F FAX: Carmenza Kelly DO [phone] [place]: St: PRE FAX: Y Mike Lund MD [phone] Name: LIO WATTS [facility] [place] : 1955 Age/S: 66/F [address] [place] [address] Unit #: [id number] Loc: [place], [place] [address]Yeso: Mike Lund MD Acct: [id number] Dis Date: [place] [facility] [place] #: [phone] Exam Date: 06/16/20211119 FAX #: [phone] Reason: PREOP EXAMS: CPT CODE: [id number] XR CHEST 2 V 36630 PROCEDURE INFORMATION: Exam: XR Chest Exam date [...] Technologist: Danielle Nix RT(R) Trnscrd Date/Time/By: 06/16/2021 (9666) : By: [email or web address] Orig Print D/T: S: 06/16/2021 (3284)PAGE 1 Signed ReportGastrointestinal dbezi2124-33-91 04:35:05 Test Item Value Reference Interpretation Comments [...] Rotavirus PCR (test Not Detected code = 6179746) Salmonella PCR (test Not Detected code = [...] Detected (test code = 7124) [facility] bjrangx8201-91-50 19:30:47 Test Item Value Reference Range Interpretation Comments Case number (test [id number] code = 1788623) Surgical pathology See link below for PDF report (test code = Lab Report 2255) Result status (test This is Supplemental code = 6065056) Report for [id number] [facility]2021-04-09 16:31:00 Test Item Value Reference Range Interpretation Comments POC Activated Clotting Time (test code 153 s = POC Activated Clotting Time) [facility]CbmnfhzCJVIBODLJT0270-08-53 16:31:00 Test Item Value Reference Range Interpretation Comments POC Activated Clotting Time (test code 153 s = POC Activated Clotting Time) [facility] CenterEpdkydyMEWNKSDFQN0600-06-82 16:31:00 Test Item Value Reference Range Interpretation Comments POC Activated Clotting Time (test code 153 s = POC Activated Clotting Time) [facility] CenterCjkmmdnVIPPBSDQEQ6939-05-01 16:31:00 Test Item Value Reference Range Interpretation Comments POC Activated Clotting Time (test code 153 s = POC Activated Clotting Time) [place] 120631-04-09 16:31:00 Test Item Value Reference Range Interpretation Comments POC Activated Clotting Time (test code 153 s = POC Activated Clotting Time) [facility] CenterJhbpslmFPUEFRCXDS2097-89-86 16:31:00 Test Item Value Reference Range Interpretation Comments POC Activated Clotting Time (test code 153 s = POC Activated Clotting Time) [facility] CenterKxtggtzHJPPTGJCKM7642-33-77 16:31:00 Test Item Value Reference Range Interpretation Comments POC Activated Clotting Time (test code 153 s = POC Activated Clotting Time) [facility] CenterRkrhsmbOLAANSPZFO2110-35-26 14:37:00 Test Item Value Reference Range Interpretation Comments POC Activated Clotting Time (test code 454 s = POC Activated Clotting Time) [facility] CenterVcnpdkoIRZCXHKAFZ7141-19-53 14:37:00 Test Item Value Reference Range Interpretation Comments POC Activated Clotting Time (test code 454 s = POC Activated Clotting Time) [facility] CenterNtotxtvEGIPQACQUK3428-16-14 14:37:00 Test Item Value Reference Range Interpretation Comments POC Activated Clotting Time (test code 454 s = POC Activated Clotting Time) [facility] CenterAvutgqtFMNPZAFAKS6722-91-97 14:37:00 Test Item Value Reference Range Interpretation Comments POC Activated Clotting Time (test code 454 s = POC Activated Clotting Time) [facility] CenterAfjwdvkJBDFMMJURH4714-76-14 14:37:00 Test Item Value Reference Range Interpretation Comments POC Activated Clotting Time (test code 454 s = POC Activated Clotting Time) [facility] CenterPlcvptmYRJFAKCYGW9224-93-12 14:37:00 Test Item Value Reference Range Interpretation Comments POC Activated Clotting Time (test code 454 s = POC Activated Clotting Time) [facility] CenterEihauhqPHNWVHMXKT5897-56-41 14:37:00 Test Item Value Reference Range Interpretation Comments POC Activated Clotting Time (test code 454 s = POC Activated Clotting Time) [facility] CenterZxuaekfOSMSQPUMLI6614-65-97 14:13:00 Test Item Value Reference Range Interpretation Comments POC Activated Clotting Time (test code 354 s = POC Activated Clotting Time) [facility] CenterXwlsyfnTQTCYWRQJF6387-43-23 14:13:00 Test Item Value Reference Range Interpretation Comments POC Activated Clotting Time (test code 354 s = POC Activated Clotting Time) [facility] CenterJtcupsnOMRJYNBPLT1349-38-72 14:13:00 Test Item Value Reference Range Interpretation Comments POC Activated Clotting Time (test code 354 s = POC Activated Clotting Time) [facility] CenterEvpwbonOXHCKXOAIW9496-56-61 14:13:00 Test Item Value Reference Range Interpretation Comments POC Activated Clotting Time (test code 354 s = POC Activated Clotting Time) [facility] CenterKmmjfqcYYYRANFWAV3705-26-01 14:13:00 Test Item Value Reference Range Interpretation Comments POC Activated Clotting Time (test code 354 s = POC Activated Clotting Time) [facility] CenterCgnyzigDSRHLCGYCE4807-99-86 14:13:00 Test Item Value Reference Range Interpretation Comments POC Activated Clotting Time (test code 354 s = POC Activated Clotting Time) [facility] CenterHbesdfoPMULVUKXKQ4034-28-28 14:13:00 Test Item Value Reference Range Interpretation Comments POC Activated Clotting Time (test code 354 s = POC Activated Clotting Time) [facility] DQZDGIU2434-26-44 10:37:00Negative (08/29/20 5:37 AM) [facility] HermannCHEM BYWVX2532-25-25 10:37:11255Bosswnqj HermannCHEM PANEL 2020-08-29 10:37:0028[facility] HermannCHEM SWYEK7784-31-02 10:37:001.01[facility] HermannCHEM KVBCF6476-18-84 10:37:64550Nxbbhgba HermannCHEM CBRZQ1902-96-14 10:37:003.8[facility] HermannCHEM LNEHD1815-12-36 10:37:56360Pddhpamd HermannCHEM PCOCS7501-90-88 10:37:0028[facility] HermannCHEM KEFTT7353-95-74 10:37:009.8 [facility] HermannCHEM TQCKU1666-51-82 10:37:0011.8[facility] HermannCHEM PANEL 2020-08-29 10:37:0059[facility] HermannCHEM XEBIZ0440-81-04 10:37:002.9[facility] PszmcdwJCJKFQREIF1830-07-53 10:37:006.8[facility] MshhjymYFIIISRILN3101-92-22 10:37:004.47[facility] QqqfzumUEIGCZOAZQ6030-97-65 10:37:0010.6[facility] YCPQPPQUNV8021-76-07 10:37:0034.0[facility] PygbzbjSHGMRJCKUS4164-14-77 10:37:00 76.1[facility] AgimtuhNSMRYYVSYG5768-00-16 10:37:00 Test Item Value Reference Range Interpretation Comments MCH (test code = MCH) 23.8 pg 27.0-31.0 [facility] IzskszxGQLTJDCXSV9307-85-68 10:37:0031.3[facility] HermannHEMATOLOGY 2020-08-29 10:37:0018.2[facility] GvrcidsUZOUUQKHYJ6599-55-65 10:37:11878Yolxpini UguwbwlNHZFPHZJOM3891-29-89 10:37:007.5[facility] BkydhxdEZITCDUWWC9677-31-84 10:37:00 Test Item Value Reference Range Interpretation Comments PT (test code = PT) 12.8 s 12.0-14.7 [facility] RonoyjyKHAOGDEWPY0912-00-18 10:37:00 Test Item Value Reference Range Interpretation Comments INR (test code = INR) 0.97 1 0.85-1.17 [facility] KttqqtiCFCARHNWNG1674-88-38 10:37:00 Test Item Value Reference Range Interpretation Comments PTT (test code = PTT) 25.0 s 22.9-35.8 [facility] TdwmiirFFXPQTCFQY5554-45-80 10:37:0070.5[facility] HermannHEMATOLOGY 2020-08-29 10:37:0018.8[facility] ZzpzbtiKBARUTDEOE5406-32-42 10:37:009.5[facility] HdktgijCIJPIPAXYT1564-46-41 10:37:000.9[facility] LqapvxpMBEASQJSSO7766-53-20 10:37:000.3[facility] BcvkqfiMOOUYIRSMO2757-26-72 10:37:004.8[facility] Marty IZTBIEEIIL3844-55-48 10:37:001.3[facility] BlawmvvNHZLITTSHN5051-74-33 10:37:000.6 [facility] MgujvobDBUDPUVVNB2931-04-93 10:37:000.1[facility] HermannHEMATOLOGY 2020-08-29 10:37:001+ *ABN*(08/29/20 5:37 AM)[facility] VvbdcvpLOWFXSDXGR8232-97-82 10:37:00Not Detected (08/29/20 5:37 AM)[facility] HermannBLOOD BANK RESULTS 2020-08-29 10:37:00Negative (08/29/20 5:37 AM)[facility] HermannCHEM RCOWY5238-38-36 10:37:33522Lvdiqszr HermannCHEM FZWJB4237-91-80 10:37:0028[facility] HermannCHEM ZMFOT8778-14-83 10:37:001.01[facility] HermannCHEM FKLJX0931-70-37 10:37:18115 [facility] HermannCHEM FWXGC1503-74-82 10:37:003.8[facility] HermannCHEM PANEL 2020-08-29 10:37:08596Idthpykd HermannCHEM MFKBP5511-86-20 10:37:0028[facility] HermannCHEM DOPCS1995-85-92 10:37:009.8[facility] HermannCHEM MBFNL0851-16-80 10:37:0011.8[facility] HermannCHEM AEBHV9036-67-61 10:37:0059[facility] HermannCHEM FBGAG3276-44-31 10:37:002.9[facility] JviqcxeBTCQVELQHP9737-85-01 10:37:006.8 [facility] KgdgjrbLRKLKRELEN6747-95-93 10:37:004.47[facility] HermannHEMATOLOGY 2020-08-29 10:37:0010.6[facility] CevwmbiSJRZMWBMNR2629-35-92 10:37:0034.0[facility] AyqtyzsIDHOHACSWR4151-80-66 10:37:0076.1[facility] JhxcywyZSQQJERFLE2905-55-41 10:37:00 Test Item Value Reference Range Interpretation Comments MCH (test code = MCH) 23.8 pg 27.0-31.0 [facility] VjobdrnBFQCWADCWL7956-44-39 10:37:0031.3[facility] HermannHEMATOLOGY 2020-08-29 10:37:0018.2[facility] FaxvrypUJUBCFIICI6166-24-89 10:37:49240Cdwdmevc HhkfevnYKZWOWPNFV7503-40-24 10:37:007.5[facility] QxpynzrTEMOXTYZZG3947-13-85 10:37:00 Test Item Value Reference Range Interpretation Comments PT (test code = PT) 12.8 s 12.0-14.7 [facility] NqxfkzkOTMWAXEBZX0862-57-60 10:37:00 Test Item Value Reference Range Interpretation Comments INR (test code = INR) 0.97 1 0.85-1.17 [facility] SashbfoOCHYZPKWWD8618-57-09 10:37:00 Test Item Value Reference Range Interpretation Comments PTT (test code = PTT) 25.0 s 22.9-35.8 [facility] VuywbvbVGCKVBDCZV3915-11-03 10:37:0070.5[facility] HermannHEMATOLOGY 2020-08-29 10:37:0018.8[facility] UwbbsliCFORJYTTJJ4889-85-76 10:37:009.5[facility] KyaoshcYNPSOBCTXL4690-30-59 10:37:000.9[facility] TwwhssgTRBLMIIBNN2401-82-25 10:37:000.3[facility] RttcttvEXDYJAGGOB1724-87-80 10:37:004.8[facility] [place] BHWNVIGEQD6453-88-70 10:37:001.3[facility] MswftlvLUNZYYNCMN8135-43-97 10:37:000.6 [facility] PzuvokeLFNCKGIHGG6925-13-30 10:37:000.1[facility] HermannHEMATOLOGY 2020-08-29 10:37:001+ *ABN*(08/29/20 5:37 AM)[facility] XhmlwjwNRKHKYVGQG0070-27-95 10:37:00Not Detected (08/29/20 5:37 AM)[facility] HermannBLOOD BANK RESULTS 2020-08-29 10:37:00Negative (08/29/20 5:37 AM)[facility] HermannCHEM NRXPM9166-33-09 10:37:33114Iiaqjgpe HermannCHEM MXZWQ8586-37-66 10:37:0028[facility] HermannCHEM STGPK6405-45-11 10:37:001.01[facility] HermannCHEM XJMIP1944-27-74 10:37:28298 [facility] HermannCHEM YBMLC2428-23-62 10:37:003.8[facility] HermannCHEM PANEL 2020-08-29 10:37:17084Ksnzyode HermannCHEM FOBBZ5684-89-67 10:37:0028[facility] HermannCHEM FSEWJ2920-74-31 10:37:009.8[facility] HermannCHEM PIKTD3172-72-58 10:37:0011.8[facility] HermannCHEM UTIAD7491-31-30 10:37:0059[facility] HermannCHEM GMCPI0271-54-90 10:37:002.9[facility] EhozejsFPTAEMECHU3050-98-61 10:37:006.8 [facility] DmzqrevBDAYKTUJFM2933-50-17 10:37:004.47[facility] HermannHEMATOLOGY 2020-08-29 10:37:0010.6[facility] ConbueiQXQQPXRQLQ3400-96-84 10:37:0034.0[facility] CcdacoiBQXDKRRBQY8694-00-52 10:37:0076.1[facility] QsjiywwCQEVNVAKAF5394-02-27 10:37:00 Test Item Value Reference Range Interpretation Comments MCH (test code = MCH) 23.8 pg 27.0-31.0 [facility] NsfogpyUAHBNZJULT9123-95-33 10:37:0031.3[facility] HermannHEMATOLOGY 2020-08-29 10:37:0018.2[facility] SuvtyazYMKQLPGSFI0019-74-64 10:37:50475Ncvxgrmc GlcbwrlPHUUQNCFBT0289-79-56 10:37:007.5[facility] KddafzjCVBTAXDMXP3995-86-68 10:37:00 Test Item Value Reference Range Interpretation Comments PT (test code = PT) 12.8 s 12.0-14.7 [facility] MrvewhjLUYPPVWTVZ2820-53-97 10:37:00 Test Item Value Reference Range Interpretation Comments INR (test code = INR) 0.97 1 0.85-1.17 [facility] PamdvzpDXAMDFGHNQ8511-29-92 10:37:00 Test Item Value Reference Range Interpretation Comments PTT (test code = PTT) 25.0 s 22.9-35.8 [facility] WhiheiyQYBFNSIPWP2002-20-80 10:37:0070.5[facility] HermannHEMATOLOGY 2020-08-29 10:37:0018.8[facility] GkqjgdyNOKEOBAWOG4117-01-57 10:37:009.5[facility] ObntihuJRKPJZUMJI5032-40-95 10:37:000.9[facility] MmxbuekERDGXMELUK9666-91-98 10:37:000.3[facility] ComkymuITGGPORKVD9739-55-02 10:37:004.8[facility] LQCUPMZSJC4081-13-13 10:37:001.3[facility] ZnwopqpCKZQQGMISC8024-29-83 10:37:000.6 [facility] RnbpzneVWEUWGSJRT2468-02-70 10:37:000.1[facility] HermannHEMATOLOGY 2020-08-29 10:37:001+ *ABN*(08/29/20 5:37 AM)[facility] MyibnuaIEAREEUGAY9652-20-83 10:37:00Not Detected (08/29/20 5:37 AM)[facility] HermannBLOOD BANK RESULTS 2020-08-29 10:37:00Negative (08/29/20 5:37 AM)[facility] HermannCHEM YTIFG9965-67-75 10:37:53224Bbxgxxsz HermannCHEM MEARH7657-88-26 10:37:0028[facility] HermannCHEM IEUAW3496-38-96 10:37:001.01[facility] HermannCHEM ZFQQL9549-59-23 10:37:24859 [facility] HermannCHEM BEDJH7613-60-41 10:37:003.8[facility] HermannCHEM PANEL 2020-08-29 10:37:91832Ajbgfdyt HermannCHEM FRLUQ6804-22-91 10:37:0028[facility] HermannCHEM YYNUS5459-37-15 10:37:009.8[facility] HermannCHEM MOYYG7752-85-33 10:37:0011.8[facility] HermannCHEM KXRPJ5630-82-34 10:37:0059[facility] HermannCHEM ZAJJN4480-80-50 10:37:002.9[facility] NikebpsHGZAXOYJLK3101-29-59 10:37:006.8 [facility] YgbjxvtSVXRYXLPQF9023-86-69 10:37:004.47[facility] HermannHEMATOLOGY 2020-08-29 10:37:0010.6[facility] KrpnofrPJYICLIMNZ7041-17-85 10:37:0034.0[facility] BqgcmqoIKTXSWYAFS5049-61-88 10:37:0076.1[facility] GscbgnlUGLTEHWEEA8230-16-40 10:37:00 Test Item Value Reference Range Interpretation Comments MCH (test code = MCH) 23.8 pg 27.0-31.0 [facility] XjstpsaYKMQHRBVTR0075-01-90 10:37:0031.3[facility] HermannHEMATOLOGY 2020-08-29 10:37:0018.2[facility] YtcxfxlIDUBYFNGYC7395-76-95 10:37:22824Ufwitdsi XpdpkehVRPPQQRWVR2956-50-71 10:37:007.5[facility] YfnhoclIXDHKSRXPO3150-99-07 10:37:00 Test Item Value Reference Range Interpretation Comments PT (test code = PT) 12.8 s 12.0-14.7 [facility] WvedyfxAPJVYMTCGH6784-26-56 10:37:00 Test Item Value Reference Range Interpretation Comments INR (test code = INR) 0.97 1 0.85-1.17 [facility] TuxanbwAPXMRIYFDH3080-15-82 10:37:00 Test Item Value Reference Range Interpretation Comments PTT (test code = PTT) 25.0 s 22.9-35.8 [facility] GrgkienZZOODMVCLF3015-29-24 10:37:0070.5[facility] HermannHEMATOLOGY 2020-08-29 10:37:0018.8[facility] JgdfwwbEGDNRHZMQV5095-57-06 10:37:009.5[facility] NrojwpjCFIQMYAVGH6294-88-03 10:37:000.9[facility] ZyhdkqyUTCRILMOLH9995-07-01 10:37:000.3[facility] LjrgnjxNPVGSTBQVZ9049-16-84 10:37:004.8[facility] Marty HBEIPRLTCY9219-44-86 10:37:001.3[facility] EytcjhrVTXTVXPIXZ1659-77-72 10:37:000.6 [facility] AxuvhurSMEJPIGDHZ5089-94-95 10:37:000.1[facility] HermannHEMATOLOGY 2020-08-29 10:37:001+ *ABN*(08/29/20 5:37 AM)[facility] MnhtuhzZUZFINMTZB7601-78-50 10:37:00Not Detected (08/29/20 5:37 AM)[facility] HermannBLOOD BANK RESULTS 2020-08-29 10:37:00Negative (08/29/20 5:37 AM)[facility] HermannCHEM RIJCU5645-63-70 10:37:78188Fvuecknh HermannCHEM JMRSV4896-10-45 10:37:0028[facility] HermannCHEM HORUT6476-14-92 10:37:001.01[facility] HermannCHEM TWIJP3037-21-02 10:37:75073 [facility] HermannCHEM IPSYE1108-79-11 10:37:003.8[facility] HermannCHEM PANEL 2020-08-29 10:37:42985Rptasgaj HermannCHEM QWXKI4761-52-49 10:37:0028[facility] HermannCHEM RYSZB4985-61-06 10:37:009.8[facility] HermannCHEM XETPS3093-04-74 10:37:0011.8[facility] HermannCHEM VZWYI5542-52-58 10:37:0059[facility] HermannCHEM UJLFY7147-91-40 10:37:002.9[facility] QixapffSBIDDRPWUT5337-85-41 10:37:006.8 [facility] VdqnlnnCLQGNNRQAZ9123-47-27 10:37:004.47[facility] HermannHEMATOLOGY 2020-08-29 10:37:0010.6[facility] DbamaczEOLQFNCABI8910-23-91 10:37:0034.0[facility] CbampieUNKGCQIAPO3568-16-83 10:37:0076.1[facility] AarzvbfFRYNANVMRI1328-98-90 10:37:00 Test Item Value Reference Range Interpretation Comments MCH (test code = MCH) 23.8 pg 27.0-31.0 [facility] HsueoocZYLSVCTETQ0822-29-35 10:37:0031.3[facility] HermannHEMATOLOGY 2020-08-29 10:37:0018.2[facility] EjgqhowXKBWJHAIET4841-05-31 10:37:56065Xxvwhhll QphvwrdOSRGYVAUMK8205-45-55 10:37:007.5[facility] JrpvipxJGMDLJRCWE8106-16-21 10:37:00 Test Item Value Reference Range Interpretation Comments PT (test code = PT) 12.8 s 12.0-14.7 [facility] XdjzvwgORVPRPKFPL5035-65-16 10:37:00 Test Item Value Reference Range Interpretation Comments INR (test code = INR) 0.97 1 0.85-1.17 [facility] OznllrfDMKKWAWUDV8248-08-28 10:37:00 Test Item Value Reference Range Interpretation Comments PTT (test code = PTT) 25.0 s 22.9-35.8 [facility] FkkhjoyXDSZXWFXYX1963-66-16 10:37:0070.5[facility] HermannHEMATOLOGY 2020-08-29 10:37:0018.8[facility] NjaxcmgLRAKYQXOMM4789-83-96 10:37:009.5[facility] PvvermqPHTTZMSCQV0390-93-83 10:37:000.9[facility] GhlqqsoOAHDJICHKC6151-33-63 10:37:000.3[facility] XuqwyfuRQNCGDGXHZ8283-82-21 10:37:004.8[facility] [place] CMYBQRKJHZ3971-87-47 10:37:001.3[facility] UjwmfufRBJXUQSTFI0700-97-50 10:37:000.6 [facility] UlgpschSFSYHLVBWC1136-64-86 10:37:000.1[facility] HermannHEMATOLOGY 2020-08-29 10:37:001+ *ABN*(08/29/20 5:37 AM)[facility] KwojtnnJVMLPBVQLJ7213-60-92 10:37:00Not Detected (08/29/20 5:37 AM)[facility] HermannBLOOD BANK RESULTS 2020-08-29 10:37:00Negative (08/29/20 5:37 AM)[facility] HermannCHEM YJXMG3218-35-39 10:37:91783Fknsfuwn HermannCHEM FAXZV5331-37-01 10:37:0028[facility] HermannCHEM ZPNGC6926-62-44 10:37:001.01[facility] HermannCHEM IQZVB4827-78-89 10:37:68026 [facility] HermannCHEM LRRCB7522-88-00 10:37:003.8[facility] HermannCHEM PANEL 2020-08-29 10:37:02039Hgbdswce HermannCHEM IULCA8812-95-73 10:37:0028[facility] HermannCHEM MFORN8238-18-16 10:37:009.8[facility] HermannCHEM BNLAS1623-53-99 10:37:0011.8[facility] HermannCHEM CLTFL9514-70-86 10:37:0059[facility] HermannCHEM KNMFE3872-22-37 10:37:002.9[facility] OnrnkypKGMPSECGNQ7792-96-30 10:37:006.8 [facility] XhxbyllLVNFAEHPOL2053-42-14 10:37:004.47[facility] HermannHEMATOLOGY 2020-08-29 10:37:0010.6[facility] OatkrcxEVJHCRGKHX5440-79-58 10:37:0034.0[facility] SxlobpiCSQXVOIXUR2157-54-06 10:37:0076.1[facility] QdswuscIHEHUNDEMJ8652-43-28 10:37:00 Test Item Value Reference Range Interpretation Comments MCH (test code = MCH) 23.8 pg 27.0-31.0 [facility] HmezimxYSJYSWSLPB6992-84-10 10:37:0031.3[facility]annHEMATOLOGY 2020-08-29 10:37:0018.2[facility] KdgslrwKHFMLOZLWM8124-48-88 10:37:53176Cypddzxg PvecxkfTFXZFGALPU1241-92-05 10:37:007.5[facility] MumqpczTGPSQYNSYN3778-32-28 10:37:00 Test Item Value Reference Range Interpretation Comments PT (test code = PT) 12.8 s 12.0-14.7 [facility] DrgtaklEECEZVSQBQ4534-10-14 10:37:00 Test Item Value Reference Range Interpretation Comments INR (test code = INR) 0.97 1 0.85-1.17 [facility] TxphcrxIQYFXDHDIG5572-69-71 10:37:00 Test Item Value Reference Range Interpretation Comments PTT (test code = PTT) 25.0 s 22.9-35.8 [facility] BuecrxkVIPTLJYOFT2459-10-33 10:37:0070.5[facility]annHEMATOLOGY 2020-08-29 10:37:0018.8[facility] TpcnvfiNBPVJCPHOO0518-25-08 10:37:009.5[facility] DpfdixyDMJHITOSNQ4481-10-24 10:37:000.9[facility] JfzfxquIPVMHCYRBQ3853-36-12 10:37:000.3[facility] FkwbdrzUJRTRYQERF0168-51-80 10:37:004.8[facility] QRCGOWPNBI9323-23-93 10:37:001.3[facility] AyalxkqVLLYNPGZGB4898-60-05 10:37:000.6 [facility] FrqgbszWZXTDAALYS7166-48-22 10:37:000.1[facility]annHEMATOLOGY 2020-08-29 10:37:001+ *ABN*(08/29/20 5:37 AM)[facility] MiwsvpdZONHEUVDYP6357-64-10 10:37:00Not Detected (08/29/20 5:37 AM)[facility] RESULTS 2020-08-29 10:37:00Negative (08/29/20 5:37 AM)[facility]annCHEM GRGCG7992-48-46 10:37:49179Gnmqnctj HermannCHEM NLCZF7605-93-51 10:37:0028[facility]annCHEM LUTSL8773-80-09 10:37:001.01[facility]annCHEM AKWCO1670-96-62 10:37:62869 [facility] MYJKU6497-46-62 10:37:003.8[facility]annCHEM PANEL 2020-08-29 10:37:11646Vbpapsxs HermannCHEM UCTTB3954-96-93 10:37:0028[facility]annCHEM XRNTM7174-54-38 10:37:009.8[facility]annCHEM MQXYR0468-45-29 10:37:0011.8[facility]annCHEM UDDCV1116-48-37 10:37:0059[facility]annCHEM JPWWJ2634-80-52 10:37:002.9[facility] HafxewjJIWUETWPQT2599-10-86 10:37:006.8 [facility] OnngxweZKUKXMBKSH9734-33-47 10:37:004.47[facility]annHEMATOLOGY 2020-08-29 10:37:0010.6[facility] JinpmrwAKKGOVPODX0689-92-63 10:37:0034.0[facility] CybaaliSVWAGHMKFV6517-25-06 10:37:0076.1[facility] CxvcwwbLQQZIGQPED6466-93-58 10:37:00 Test Item Value Reference Range Interpretation Comments MCH (test code = MCH) 23.8 pg 27.0-31.0 [facility] HjqdfzqVVWPUXBSLZ3147-06-64 10:37:0031.3[facility]annHEMATOLOGY 2020-08-29 10:37:0018.2[facility] XlmhgirNZBKTXVXOQ3938-22-63 10:37:73960Gldhbbkj TxoqubnAQVDUMOCCJ8352-67-99 10:37:007.5[facility] OksjgbhOKMJMSHXHF0769-25-12 10:37:00 Test Item Value Reference Range Interpretation Comments PT (test code = PT) 12.8 s 12.0-14.7 [facility] QojmlumIOGJDLWMJC5331-68-13 10:37:00 Test Item Value Reference Range Interpretation Comments INR (test code = INR) 0.97 1 0.85-1.17 [facility] BdfaxlyPVEHEPAAVE3137-69-50 10:37:00 Test Item Value Reference Range Interpretation Comments PTT (test code = PTT) 25.0 s 22.9-35.8 [facility] GaejcnyWJKCNIEEQW3099-75-15 10:37:0070.5[facility]annHEMATOLOGY 2020-08-29 10:37:0018.8[facility] BptgyzcYVLSFMOEPC3924-09-27 10:37:009.5[facility] QyixvhtBEZPMMGHTM2490-67-40 10:37:000.9[facility] GlxfgllPMUTEXOOJH2652-54-41 10:37:000.3[facility] GnnqdthMAQYQFOOYJ7392-57-64 10:37:004.8[facility] [place] CWBSWRGEWL3895-56-21 10:37:001.3[facility] XaoqvybYKWGLLADFV4284-40-25 10:37:000.6 [facility] XrgqrojCLRPSXHJZO9173-15-05 10:37:000.1[facility]annHEMATOLOGY 2020-08-29 10:37:001+ *ABN*(08/29/20 5:37 AM)[facility] WigmocyRNUVOYGIFI3459-98-73 10:37:00Not Detected (08/29/20 5:37 AM)[facility]iscoCHLAMYDIA, GC, TV,PCR, IN [id number] 15:38:00 Test Item Value Reference Range Interpretation Comments FT (test code = CHTR) Not detected (qualifier Not Detected N value) FT (test code = Not detected (qualifier Not Detected N NGONO) value) FT (test code = TRVG) Not detected (qualifier Not Detected N value) [facility] [id number] 10:57:00 Test Item Value Reference Range Interpretation Comments Color (test code = UCOLR) Dk. Yellow Clarity (test code = UCLAR) Hazy Glucose (test code = UGLUC) NEGATIVE NEGATIVE N Bilirubin (test code = UBILI) NEGATIVE NEGATIVE N Ketones (test code = UKET) NEGATIVE NEGATIVE N Specific [place] (test code = 1.025 1.005-1.030 A USPGR) [...] = None Seen None Seen N URCRYS) [facility]"
--- NOTE | 2022-03-11 19:17 | RAD REPORT ---
EXAM DESCRIPTION: Patrick Single View03/11/2022 6:55 pm CLINICAL HISTORY: Chest pain COMPARISON: February 26, 2022 FINDINGS: The lungs appear clear of acute infiltrate. The heart is mildly enlarged IMPRESSION: No acute abnormalities displayed
[2022-03-11 19:34] LABS: Absolute Lymphocytes (CBC) 1.4 K/uL (0.7-4.9); Hematocrit 35.6 % (36.0-45.0); Lymphocytes % 25.8 % (15.3-44.8); MPV 7.3 fL (7.6-11.3); RBC Red Blood Cell Count 3.87 M/uL (3.86-4.86)
[2022-03-11 19:53] LABS: Potassium 3.5 mmol/L (3.5-5.1); Troponin High Sensitivity 13.4 pg/mL (<58.9)
[2022-03-11] MEDS ORDERED: HYDRALAZINE HCL 25 MG TABLET ONE (20:01)
[2022-03-11] MEDS ORDERED: HYDRALAZINE HCL 20 MG/ML VIAL ONE ×2 (20:27→20:31)
--- NOTE | 2022-03-11 21:02 | ER ---
Nurse's Notes [facility] Name: Marjan Kolb Age: 67 yrs Sex: Female : 1955 Arrival Date: 03/11/2022 Time: 16:56 Bed 6 Private MD: Lele Rahman H Diagnosis: Essential (primary) hypertension Presentation: 03/11 17:13 Chief complaint: Patient states: BP of 280 at home diastolic; home helth checked on her jh5 yesterday and was elevated then as well. Coronavirus screen: Vaccine status: Patient reports receiving the 2nd dose of the covid vaccine. Client denies travel out of the [place] in the last 14 days. At this time, the client does not indicate any symptoms associated with coronavirus-19. Ebola Screen: Patient negative for fever greater than or equal to 101.5 degrees Fahrenheit, and additional compatible Ebola Virus Disease symptoms Patient denies exposure to infectious person. Patient denies travel to an Ebola-affected area in the 21 days before illness onset. Initial Sepsis Screen: Does the patient meet any 2 criteria? No. Patient's initial sepsis screen is negative. Does the patient have a suspected source of infection? No. Patient's initial sepsis screen is negative. Risk Assessment: Do you want to hurt yourself or someone else? Patient reports no desire to harm self or others. Onset of symptoms was March 07, 2022. 17:13 Method Of Arrival: Ambulatory [facility] 17:13 Acuity: BLAYNE 3 5 Triage Assessment: 17:15 General: Appears in no apparent distress. comfortable, Behavior is calm, cooperative, [facility] appropriate for age. Pain: Denies pain. Historical: - Allergies: 17:15 Bactrim DS; 5 17:15 butorphanol tartrate; 5 17:15 Fentanyl; [facility] 17:15 Reglan; [facility] 17:15 Stadol; [facility] 17:15 sulfamethoxazole (bulk); [facility] 17:15 TRIMETHOPRIM; [facility] - Home Meds: 17:15 metoprolol tartrate 50 mg Oral tab 1 tab 2 times per day [Active]; [facility] - PMHx: 17:15 Anxiety; Atrial Fib; Bipolar disorder; Chronic pain; COPD; esophageal varices; jh5 Hepatitis; Hypertension; HIV; Migraines; Panic Attacks; - PSHx: 17:15 Appendectomy; Bilateral shoulder repair; Cholecystectomy; hernia repair; R wrist SX; jh5 - Immunization history:: Adult Immunizations up to date. - Social history:: Smoking status: Patient denies any tobacco usage or history of. Screenin:52 Abuse screen: Denies threats or abuse. Nutritional screening: No deficits noted. mb9 Tuberculosis screening: No symptoms or risk factors identified. Fall Risk None identified. Assessment: 17:49 General: Appears in no apparent distress. comfortable, Behavior is calm, cooperative, mb9 appropriate for age. Pain: Complains of pain in head Pain currently is 10 out of 10 on a pain scale. Quality of pain is described as heavy, pressure, Pain began suddenly. Neuro: Level of Consciousness is awake, alert, obeys commands, Oriented to person, place, time, situation, Appropriate for age [employer] Boarding Room are equal bilaterally Moves all extremities. Gait is steady, Speech is normal, Pupils are PERRLA, Reports headache. Cardiovascular: Heart tones S1 S2 present Capillary refill < 3 seconds Rhythm is sinus bradycardia. Respiratory: Airway is patent Respiratory effort is even, unlabored, Respiratory pattern is regular, symmetrical, Breath sounds are clear bilaterally. GI: No signs and/or symptoms were reported involving the gastrointestinal system. : No signs and/or symptoms were reported regarding the genitourinary system. EENT: No signs and/or symptoms were reported regarding the EENT system. Derm: Skin is pink, warm \T\ dry. Musculoskeletal: Range of motion: intact in all extremities. 18:10 Reassessment: called lab to assist with blood draw. mb9 18:49 General: Appears in no apparent distress. comfortable, Behavior is calm, cooperative, mb9 appropriate for age. Pain: Complains of pain in head. Neuro: Level of Consciousness is awake, alert, obeys commands, Oriented to person, place, time, situation, Appropriate for age. Cardiovascular: Heart tones S1 S2 present Rhythm is sinus bradycardia. Respiratory: Airway is patent Respiratory effort is even, unlabored, Respiratory pattern is regular, symmetrical. Derm: Skin is pink, warm \T\ dry. 19:11 Reassessment: report given to RN. Deyanira mb9 19:15 Reassessment: Patient and/or family updated on plan of care and expected duration. Pain vc1 level reassessed. Patient states symptoms have not improved. 20:57 Reassessment: Patient and/or family updated on plan of care and expected duration. Pain ha1 level reassessed. Patient is alert, oriented x 3, equal unlabored respirations, skin warm/dry/pink. pain 5/10. BP lowered with medication Patient states symptoms have improved. Vital Signs: 17:13 BP 211 / 98; Pulse 52; Resp 16; Temp 98.6; Pulse Ox 96% ; Weight 74.39 kg; Height 5 ft. jh5 4 in. (162.56 cm); Pain 0/10; 17:52 BP 177 / 84; Pulse 55; Resp 16; Pulse Ox 100% on R/A; Pain 10/10; mb9 18:49 BP 187 / 90; Pulse 52; Resp 16; Pulse Ox 100% on R/A; mb9 19:30 BP 191 / 89; Pulse 50; Resp 17; Pulse Ox 100% ; vc1 20:30 BP 164 / 108; Pulse 57; Resp 19 S; Pulse Ox 100% on R/A; ha1 17:13 Body Mass Index 28.15 (74.39 kg, 162.56 cm) [facility] ED Course: 16:56 Patient arrived in ED. am2 16:56 Lele Rahman DO is Private Physician. am2 17:15 Triage completed. [facility] 17:15 Arm band placed on right wrist. [facility] 17:40 Jessie Cristina RN is Primary Nurse. mb9 17:52 No provider procedures requiring assistance completed. mb9 17:53 Placed in gown. Bed in low position. Call light in reach. Side rails up X 1. mb9 17:55 Justus Kolb MD is Attending Physician. [facility] 18:05 EKG done, by ED staff, reviewed by Justus Kolb MD. mb9 18:10 Inserted saline lock: 24 gauge in right upper arm, using aseptic technique. done by eduardo DIALLO RN. 18:57 XRAY Chest (1 view) In Process Unspecified. EDMS 20:16 Primary Nurse role handed off by Jessie Cristina, ASHLEY bb 20:39 Ludivina Ramires RN is Primary Nurse. ha1 21:01 Lele Rahman DO is Referral Physician. cp 21:01 Per Crane MD is Referral Physician. cp 21:23 IV discontinued, intact, bleeding controlled, No redness/swelling at site. vc1 Administered Medications: 20:05 Drug: HydrALAZINE 25 mg Route: PO; ha1 20:39 Drug: hydrALAZINE 5 mg {Note: BP 164/108.} Route: IVP; Site: right upper arm; ha1 Medication: 17:52 VIS not applicable for this client. mb9 Outcome: 21:01 Discharge ordered by . cp 21:23 Discharged to home ambulatory. vc1 21:23 Condition: good 21:23 Discharge instructions given to patient, Instructed on discharge instructions, follow up and referral plans. medication usage, Demonstrated understanding of instructions, follow-up care, medications, Prescriptions given X 1. 21:23 Patient left the ED. vc1 Signatures: Dispatcher [employer] EDMS Justus Kolb MD MD cha Ballard, Brenda, RN RN bb Justus Neil, PA PA cp Danielle Ferrer am2 Sharee Castrejon RN RN jh5 Deyanira Medina RN RN 1 Ludivina Ramires RN RN 1 Jessie Cristina RN RN mb9
--- NOTE | 2022-03-11 21:02 | EDPHYS ---
Physician Documentation [facility] Name: Marjan Kolb Age: 67 yrs Sex: Female : 1955 Arrival Date: 03/11/2022 Time: 16:56 Bed 6 Private MD: Lele Rahman H ED Physician Justus Kolb HPI: 03/11 18:58 This 67 yrs old Female presents to ER via Ambulatory with complaints of High thomas Blood Pressure. 18:58 The patient has elevated blood pressure and discovered this at home. Onset: The thomas symptoms/episode began/occurred today. Modifying factors: The symptoms are aggravated by activity, The symptoms are alleviated by remaining still. Associated signs and symptoms: The patient has no apparent associated signs or symptoms. Severity of symptoms: At its worst the blood pressure was mild. The patient has experienced similar episodes in the past, multiple times. Historical: - Allergies: 17:15 Bactrim DS; 5 17:15 butorphanol tartrate; 5 17:15 Fentanyl; 5 17:15 Reglan; 5 17:15 Stadol; 5 17:15 sulfamethoxazole (bulk); 5 17:15 TRIMETHOPRIM; 5 - Home Meds: 17:15 metoprolol tartrate 50 mg Oral tab 1 tab 2 times per day [Active]; 5 - PMHx: 17:15 Anxiety; Atrial Fib; Bipolar disorder; Chronic pain; COPD; esophageal varices; jh5 Hepatitis; Hypertension; HIV; Migraines; Panic Attacks; - PSHx: 17:15 Appendectomy; Bilateral shoulder repair; Cholecystectomy; hernia repair; R wrist SX; 5 - Immunization history:: Adult Immunizations up to date. - Social history:: Smoking status: Patient denies any tobacco usage or history of. ROS: 19:00 Constitutional: Negative for fever, chills, and weight loss, Eyes: Negative for injury, thomas pain, redness, and discharge, ENT: Negative for injury, pain, and discharge, Neck: Negative for injury, pain, and swelling, Cardiovascular: Negative for chest pain, palpitations, and edema, Respiratory: Negative for shortness of breath, cough, wheezing, and pleuritic chest pain, Abdomen/GI: Negative for abdominal pain, nausea, vomiting, diarrhea, and constipation, Back: Negative for injury and pain, : Negative for injury, bleeding, discharge, and swelling, MS/Extremity: Negative for injury and deformity, Skin: Negative for injury, rash, and discoloration, Neuro: Negative for headache, weakness, numbness, tingling, and seizure, Psych: Negative for depression, anxiety, suicide ideation, homicidal ideation, and hallucinations, Allergy/Immunology: Negative for hives, rash, and allergies, Endocrine: Negative for neck swelling, polydipsia, polyuria, polyphagia, and marked weight changes, Hematologic/Lymphatic: Negative for swollen nodes, abnormal bleeding, and unusual bruising. Exam: 19:00 Constitutional: This is a well developed, well nourished patient who is awake, alert, thomas and in no acute distress. Head/Face: Normocephalic, atraumatic. Eyes: Pupils equal round and reactive to light, extra-ocular motions intact. Lids and lashes normal. Conjunctiva and sclera are non-icteric and not injected. Cornea within normal limits. Periorbital areas with no swelling, redness, or edema. ENT: Nares patent. No nasal discharge, no septal abnormalities noted. Tympanic membranes are normal and external auditory canals are clear. Oropharynx with no redness, swelling, or masses, exudates, or evidence of obstruction, uvula midline. Mucous membranes moist. Neck: Trachea midline, no thyromegaly or masses palpated, and no cervical lymphadenopathy. Supple, full range of motion without nuchal rigidity, or vertebral point tenderness. No Meningismus. Chest/axilla: Normal chest wall appearance and motion. Nontender with no deformity. No lesions are appreciated. Cardiovascular: Regular rate and rhythm with a normal S1 and S2. No gallops, murmurs, or rubs. Normal PMI, no JVD. No pulse deficits. Respiratory: Lungs have equal breath sounds bilaterally, clear to auscultation and percussion. No rales, rhonchi or wheezes noted. No increased work of breathing, no retractions or nasal flaring. Abdomen/GI: Soft, non-tender, with normal bowel sounds. No distension or tympany. No guarding or rebound. No evidence of tenderness throughout. Back: No spinal tenderness. No costovertebral tenderness. Full range of motion. Female : Normal external genitalia. Skin: Warm, dry with normal turgor. Normal color with no rashes, no lesions, and no evidence of cellulitis. MS/ Extremity: Pulses equal, no cyanosis. Neurovascular intact. Full, normal range of motion. Neuro: Awake and alert, GCS 15, oriented to person, place, time, and situation. Cranial nerves II-XII grossly intact. Motor strength 5/5 in all extremities. Sensory grossly intact. Cerebellar exam normal. Normal gait. Psych: Awake, alert, with orientation to person, place and time. Behavior, mood, and affect are within normal limits. 19:00 ECG was reviewed by the Attending Physician. 19:05 Musculoskeletal/extremity: DVT Exam: No signs of deep vein thrombosis. no pain, no thomas swelling, no tenderness, negative Homans' sign noted on exam, no appreciated bluish discoloration, no erythema, no increased warmth. Vital Signs: 17:13 BP 211 / 98; Pulse 52; Resp 16; Temp 98.6; Pulse Ox 96% ; Weight 74.39 kg; Height 5 ft. jh5 4 in. (162.56 cm); Pain 0/10; 17:52 BP 177 / 84; Pulse 55; Resp 16; Pulse Ox 100% on R/A; Pain 10/10; mb9 18:49 BP 187 / 90; Pulse 52; Resp 16; Pulse Ox 100% on R/A; mb9 19:30 BP 191 / 89; Pulse 50; Resp 17; Pulse Ox 100% ; vc1 20:30 BP 164 / 108; Pulse 57; Resp 19 S; Pulse Ox 100% on R/A; ha1 17:13 Body Mass Index 28.15 (74.39 kg, 162.56 cm) [facility] MDM: 17:55 Patient medically screened. thomas 19:04 Differential diagnosis: hypertensive crisis, Malignant HTN. Data reviewed: vital signs, [facility] nurses notes, lab test result(s), EKG, radiologic studies, plain films. Data interpreted: wedding coordinator: rate is 52 beats/min, rhythm is regular, Pulse oximetry: on room air is 100 %. Test interpretation: by ED physician or midlevel provider: ECG, plain radiologic studies. Counseling: I had a detailed discussion with the patient and/or guardian regarding: the historical points, exam findings, and any diagnostic results supporting the discharge/admit diagnosis, lab results, radiology results, the need for outpatient follow up, for definitive care, a car top bolter, a family practitioner. 03/11 17:54 Order name: Basic Metabolic Panel; Complete Time: 20:06 mb9 03/11 20:06 Interpretation: Normal except: BUN 35; CRE 1.34; GFR 44. cp 03/11 17:54 Order name: CBC with Diff; Complete Time: 20:06 mb9 03/11 20:06 Interpretation: Normal except: HCT 35.6; PLT 112; MPV 7.3; EOSINOPHIL % 4.9. cp 03/11 17:54 Order name: Troponin HS; Complete Time: 20:06 mb9 03/11 17:54 Order name: XRAY Chest (1 view); Complete Time: 19:19 mb9 03/11 17:54 Order name: EKG; Complete Time: 17:55 mb9 03/11 17:54 Order name: Cardiac monitoring; Complete Time: 17:55 mb9 03/11 17:54 Order name: EKG - Nurse/Tech; Complete Time: 18:05 mb9 03/11 17:54 Order name: IV Saline Lock; Complete Time: 18:10 mb9 03/11 17:54 Order name: Labs collected and sent; Complete Time: 19:55 mb9 03/11 17:54 Order name: O2 Per Protocol; Complete Time: 17:54 mb9 03/11 17:54 Order name: O2 Sat Monitoring; Complete Time: 17:54 mb9 EC:00 Rate is 50 beats/min. Rhythm is regular. QRS [place] is Normal. RI interval is normal. QRS thomas interval is normal. QT interval is normal. No Q waves. T waves are Normal. No ST changes noted. Clinical impression: NSR w/ Non-specific ST/T Changes and No evidence of ischemia. Interpreted by me. Reviewed by me. Administered Medications: 20:05 Drug: HydrALAZINE 25 mg Route: PO; ha1 20:39 Drug: hydrALAZINE 5 mg {Note: BP 164/108.} Route: IVP; Site: right upper arm; ha1 Disposition Summary: 03/11/22 21:01 Discharge Ordered Location: Home cp Problem: new cp Symptoms: have improved cp Condition: Stable cp Diagnosis - Essential (primary) hypertension cp Followup: thomas - With: - When: 2 - 3 days - Reason: Recheck today's complaints, Continuance of care, Re-evaluation by your physician Followup: thomas - With: - When: 2 - 3 days - Reason: Recheck today's complaints, Re-evaluation by your physician Discharge Instructions: - Discharge Summary Sheet thomas - Hypertension, Adult thomas - Hypertension, Adult, [id number] thomas - How to Take Your Blood Pressure, [id number] thomas - Managing Your Hypertension thomas Forms: - Medication Reconciliation Form cp - Thank You Letter cp - Antibiotic Education cp - Prescription Opioid Use cp Prescriptions: - Hydralazine 25 mg Oral Tablet - take 1 tablet by ORAL route 2 times per day with food; 30 tablet; Refills: 0, cp Product Selection Permitted Signatures: Dispatcher [employer] EDMS Justus Kolb MD MD cha Page, Corey, PA PA cp Sharee Castrejon RN RN jh5 Ludivina Ramires RN RN ha1 Jessie Cristina RN RN mb9 Corrections: (The following items were deleted from the chart) 20:06 20:06 Normal except: HCT 35.6; PLT 112. cp cp
[2022-03-11 21:51] VITALS: TEMP 98.6
[2022-03-11 21:58] VITALS: O2SAT 100
[2022-03-11 22:19] VITALS: BP 164/108
--- NOTE | 2022-03-13 16:57 | EKG ---
Test Date: 2022-03-11 Test Time: 17:58:19 [employer]car Weigher: MB MEASUREMENT RESULTS: Intervals: Rate: 50 OK: 196 QRSD: 82 QT: 522 QTc: 475 [place]: P: 79 OK: 196 QRS: 65 T: 35 INTERPRETIVE STATEMENTS: Sinus bradycardia with premature atrial complexes Nonspecific ST abnormality Abnormal ECG Compared to ECG 09/17/2003 18:03:00 Atrial premature complex(es) now present Sinus rhythm no longer present Left ventricular hypertrophy no longer present ST (T wave) deviation still present Electronically Signed On 03-13-22 16:54:15 CDT by Mike Lund
== END 2022-03-11 21:23 | disposition home or self-care (01) ==
LOC: ER 16:50
DX: I10 Essential (primary) hypertension (principal); Z21 Asymptomatic human immunodeficiency virus [HIV] infection status; Z88.1 Allergy status to other antibiotic agents; Z88.2 Allergy status to sulfonamides; Z88.8 Allergy status to other drugs, medicaments and biological substances
CPT/HCPCS: 93005; 85025; 80048; 36415; 84484; 71045; 96374; 99284; J0360

== ENCOUNTER 2022-03-13 08:00 | Emergency (ER) | payer OTHER ==
--- NOTE | 2022-03-13 08:30 | EDPHYS ---
Physician Documentation [facility] Name: Marjan Kolb Age: 67 yrs Sex: Female : 1955 Arrival Date: 03/13/2022 Time: 08:07 Bed 7 Private MD: Lele Rahman H ED Physician Ramon Baker HPI: 03/13 08:11 This 67 yrs old Female presents to ER via Ambulatory with complaints of Medication jmm Refill. 08:11 The patient presents to the emergency department requesting refill(s) for: trazodone, jmm wellbutrin. 08:53 It is unknown whether or not the patient has had similar symptoms in the past. Patient jmm states her psychiatrist is now out of network. Unable to get an RX for her medications. . Historical: - Allergies: 08:20 Bactrim DS; iw 08:20 butorphanol tartrate; iw 08:20 Fentanyl; iw 08:20 Reglan; iw 08:20 Stadol; iw 08:20 sulfamethoxazole (bulk); iw 08:20 TRIMETHOPRIM; iw - PMHx: 08:20 Anxiety; Atrial Fib; Bipolar disorder; Chronic pain; COPD; esophageal varices; iw Hepatitis; HIV; Hypertension; Migraines; Panic Attacks; - PSHx: 08:20 Appendectomy; Cholecystectomy; hernia repair; Bilateral shoulder repair; R wrist SX; iw - Immunization history:: Adult Immunizations unknown. - Social history:: Smoking status: unknown. ROS: 08:53 Constitutional: Negative for fever, chills, and weight loss, Cardiovascular: Negative jmm for chest pain, palpitations, and edema, Respiratory: Negative for shortness of breath, cough, wheezing, and pleuritic chest pain. 08:53 All other systems are negative. Exam: 08:53 Constitutional: This is a well developed, well nourished patient who is awake, alert, jmm and in no acute distress. Head/Face: atraumatic. Eyes: EOMI, no conjunctival erythema appreciated ENT: Moist Mucus Membranes Neck: Trachea midline, Supple Chest/axilla: Normal chest wall appearance and motion. Cardiovascular: Regular rate and rhythm. No edema appreciated Respiratory: Normal respirations, no respiratory distress appreciated Abdomen/GI: Non distended Back: Normal ROM Skin: General appearance color normal 08:53 Musculoskeletal/extremity: ROM: intact in all extremities. 08:53 Skin: Appearance: Color: normal in color. 08:53 Neuro: Orientation: is normal, Mentation: is normal, Memory: is normal. 08:53 Psych: Behavior/mood is pleasant, cooperative. Vital Signs: 08:18 BP 174 / 95; Pulse 57; Resp 16; Temp 97.1; Pulse Ox 100% on R/A; iw MDM: 08:11 Patient medically screened. [facility] 08:22 Data reviewed: vital signs, nurses notes. Counseling: I had a detailed discussion with [facility] the patient and/or guardian regarding: the historical points, exam findings, and any diagnostic results supporting the discharge/admit diagnosis, the need for outpatient follow up, to return to the emergency department if symptoms worsen or persist or if there are any questions or concerns that arise at home. Administered Medications: 08:22 Not Given (Patient Refused; Not available in ED pyxis, will get script filled ): ph Wellbutrin (bupropion) 150 mg PO once Disposition: 09:33 Co-signature as Attending Physician, Ramon Baker MD. rn Disposition Summary: 03/13/22 08:29 Discharge Ordered Location: Home [facility] Condition: Stable [facility] Diagnosis - Encounter for Refill [facility] Followup: [facility] - With: Private Physician - When: 2 - 3 days - Reason: Recheck today's complaints, Continuance of care, Re-evaluation by your physician Discharge Instructions: - Discharge Summary Sheet [facility] Forms: - Medication Reconciliation Form [facility] - Thank You Letter [facility] - Antibiotic Education [facility] - Prescription Opioid Use [facility] Prescriptions: - Wellbutrin XL 150 mg Oral tablet extended release 24 hr - take 1 tablet by ORAL route once daily; 30 tablet; Refills: 0, Product [facility] Selection Permitted - trazodone 50 mg Oral tablet - take 0.5 tablet by ORAL route once daily at bedtime; 30 tablet; Refills: 0, [facility] Product Selection Permitted - buspirone 30 mg Oral tablet - take 1 tablet by ORAL route 2 times per day As needed; 30 tablet; Refills: 0, [facility] Product Selection Permitted Signatures: Lv Boudreaux PA PA jm Jacquelin Meier RN RN Baker, Ramon, MD MD rn Bennett, Solange, RN RN ph
--- NOTE | 2022-03-13 08:30 | ER ---
Nurse's Notes [facility] Name: Marjan Kolb Age: 67 yrs Sex: Female : 1955 Arrival Date: 03/13/2022 Time: 08:07 Bed 7 Private MD: Lele Rahman H Diagnosis: Encounter for Refill Presentation: 03/13 08:18 Chief complaint: Patient states: out of her meds X 3 days, trazodone 50 Daily, iw Wellbutrin 150 BID, and another med that she can't remember, her psychiatrist is out of network. Coronavirus screen: At this time, the client does not indicate any symptoms associated with coronavirus-19. Ebola Screen: Patient negative for fever greater than or equal to 101.5 degrees Fahrenheit, and additional compatible Ebola Virus Disease symptoms Patient denies exposure to infectious person. Patient denies travel to an Ebola-affected area in the 21 days before illness onset. No symptoms or risks identified at this time. Initial Sepsis Screen: Does the patient meet any 2 criteria? No. Patient's initial sepsis screen is negative. Does the patient have a suspected source of infection? No. Patient's initial sepsis screen is negative. Risk Assessment: Do you want to hurt yourself or someone else? Patient reports no desire to harm self or others. Onset of symptoms was March 13, 2022. 08:18 Method Of Arrival: Ambulatory iw 08:18 Acuity: BLAYNE 5 iw Historical: - Allergies: 08:20 Bactrim DS; iw 08:20 butorphanol tartrate; iw 08:20 Fentanyl; iw 08:20 Reglan; iw 08:20 Stadol; iw 08:20 sulfamethoxazole (bulk); iw 08:20 TRIMETHOPRIM; iw - PMHx: 08:20 Anxiety; Atrial Fib; Bipolar disorder; Chronic pain; COPD; esophageal varices; iw Hepatitis; HIV; Hypertension; Migraines; Panic Attacks; - PSHx: 08:20 Appendectomy; Cholecystectomy; hernia repair; Bilateral shoulder repair; R wrist SX; iw - Immunization history:: Adult Immunizations unknown. - Social history:: Smoking status: unknown. Screenin:48 Abuse screen: Denies threats or abuse. Denies injuries from another. Nutritional ph screening: No deficits noted. Tuberculosis screening: No symptoms or risk factors identified. Fall Risk None identified. Assessment: 08:49 General: Appears in no apparent distress. comfortable, Behavior is calm, cooperative, ph appropriate for age. Pain: Denies pain. Neuro: Level of Consciousness is awake, alert, obeys commands, Oriented to person, place, time, situation. Vital Signs: 08:18 BP 174 / 95; Pulse 57; Resp 16; Temp 97.1; Pulse Ox 100% on R/A; iw ED Course: 08:07 Patient arrived in ED. mr 08:07 Lele Rahman DO is Private Physician. mr 08:10 Lv Boudreaux PA is PHCP. [facility] 08:10 Ramon Baker MD is Attending Physician. [facility] 08:20 Triage completed. iw 08:20 Arm band placed on. iw 08:21 Solange Bennett, RN is Primary Nurse. ph 08:49 Patient has correct armband on for positive identification. Bed in low position. Call light in reach. 08:49 No provider procedures requiring assistance completed. Patient did not have IV access ph during this emergency room visit. Administered Medications: 08:22 Not Given (Patient Refused; Not available in ED pyxis, will get script filled ): ph Wellbutrin (bupropion) 150 mg PO once Medication: 08:49 VIS not applicable for this client. ph Outcome: 08:29 Discharge ordered by . [facility] 08:50 Discharged to home ph 08:50 Condition: good 08:50 Discharge instructions given to patient. 08:50 Patient left the ED. ph Signatures: Lv Boudreaux PA PA Jessie Wolfe Jacquelin Meier, RN RN Solange Bennett, RN RN ph
[2022-03-13 08:55] VITALS: BP 174/95; TEMP 97.1; O2SAT 100
== END 2022-03-13 08:50 | disposition home or self-care (01) ==
LOC: ER 08:00
DX: Z76.0 Encounter for issue of repeat prescription (principal)
CPT/HCPCS: 99281

== ENCOUNTER 2022-03-16 06:46 | Day surgery (SDC) | payer OTHER ==
[2022-03-16] MEDS: Ringers Lactate 1,000 ML IV ONE ×2 (07:40→10:03)
[2022-03-16] MEDS ORDERED: LIDOCAINE 1% MPF 5 ML VIAL ONE (10:08)
[2022-03-16] MEDS ORDERED: propofoL 200 MG/20 ML VIAL IV ONE (10:08)
--- NOTE | 2022-03-16 11:20 | OP ---
Surgeon: Loco Montes MD Procedure Performed: Esophagogastroduodenoscopy. Indication For Procedure: Dysphagia, modification of bowel habits, dyspepsia. Plan For Anesthesia: Monitored anesthesia care. Complexity: Average. Technique: After obtaining informed consent from the patient, explaining the risks and complications , which include, but are not limited to bleeding, infection, perforation, and anesthesia complication s, the patient was placed in a left lateral position and sedation was given. Scope was inserted into the mouth and carefully guided up till the second portion of the duodenum. After the completion of examination, scope and equipment were withdrawn and procedure terminated in a safe manner. Findings: Esophagus: No gross lesion seen in the entire esophagus. Z-line was mildly irregular. N o evidence of stenosis. Stomach: Moderate amount of solid retained food was found in the stomach. Additionally seen was mod erate patchy erythema in the antrum. Antrum and body biopsies taken. This finding of gastric retent ion is likely the cause of the patient's symptoms. Duodenum: The bulb and second portion appeared normal. The procedure was cut short due to significa nt gastric retention to decrease risk of aspiration. Complications: None. Tolerance To Anesthesia: Excellent. Estimated Blood Loss: Minimal. Postoperative Diagnoses: Gastric retention, gastritis. No organic reason for the patient's dysphagi a. Plan: Continue current management, low-fiber diet, follow up in the GI clinic in 2 weeks. The patie nt's symptoms are likely due to gastric retention/gastroparesis. No need for further endoscopy for d ysphagia purposes at least at this time. US/MODL Voice ID: [id number] Report ID: [id number]
[2022-03-16 11:43] VITALS: BP 175/78; TEMP 97; O2SAT 98
== END 2022-03-16 11:30 | disposition home or self-care (01) ==
LOC: OR 06:46
PROVIDERS: ATTEND Internal Medicine Gastroenterology
PROC: 0DB78ZX Excision of Stomach, Pylorus, Via Natural or Artificial Opening Endoscopic, Diagnostic (ICD-10-PCS; principal; 2022-03-16 09:15)
DX: R13.10 Dysphagia, unspecified (principal); R10.13 Epigastric pain; K29.50 Unspecified chronic gastritis without bleeding; R19.7 Diarrhea, unspecified; K59.00 Constipation, unspecified; Z80.0 Family history of malignant neoplasm of digestive organs
CPT/HCPCS: 88312; 88305; 43239; J2704; J2001; J7120

== ENCOUNTER 2022-03-18 09:56 | Emergency (ER) | payer OTHER ==
--- OUTSIDE RECORDS SUMMARY | 2022-03-18 10:19 | XMS REPORT | Continuity of Care Document ---
:1955 Author Organization [facility] t Address [address] [place] [address] Care Team Providers Name Role Phone Urmila Rahman Primary Care Physician ELAN LIRA Attending Clinician Unavailable HEMATPOLIZ, BEVERLY Attending Clinician Unavailable SANTIAGO CARDENAS Attending Clinician Unavailable [facility] Attending Clinician Unavailable Santiago Sanchez Attending Clinician Stevo RAMIREZ, Isaias Arredondo Attending Clinician Unavailable TOMY MARIE Attending Clinician Unavailable Reilly Measn MD Attending Clinician Ofe Shields MD Attending Clinician Tomy Marie MD Attending Clinician Doctor Unassigned, [place] Attending Clinician Unavailable Bill COLES Attending Clinician Unavailable Bill Rose Attending Clinician CHARITY MCALLISTER Attending Clinician Unavailable Charity Mcallister MD Attending Clinician GADIEL KOEHLER Attending Clinician Unavailable Mike Lund Attending Clinician Unavailable NIKOLAI REEVES Attending Clinician Unavailable Eliseo Arce MD Attending Clinician Carol Ann IZQUIERDO, Sarai Lieberman Attending Clinician [phone] Ashly Pelletier MA Attending Clinician Unavailable Dagoberto Bass MD Attending Clinician [place] Evangelista Attending Clinician Lab, [facility] Pob I Attending Clinician Unavailable Devin SALGUERO, Robbi Hairston Attending Clinician Monica Rodas MA Attending Clinician Unavailable Agustina Ortiz MA Attending Clinician Unavailable Rody Maguire RN Attending Clinician Unavailable Kirit Flood MD, V. Attending Clinician HEMATPOLIZ, BEVERLY Attending Clinician Unavailable Gloria Hinojosa Attending Clinician Michael Hagen RN Attending Clinician Unavailable Vani, [facility] Attending Clinician UnavailDO PORSHA Newell Attending Clinician Unavailable Gadiel Koehler MD Attending Clinician Eveline Hansen MD Attending Clinician Eladio [place] RN Attending Clinician Unavailable Leyda Willis Attending Clinician [phone] Stefanie Montalvo RN Attending Clinician Unavailable TOMY MARIE Admitting Clinician Unavailable Tomy Marie MD Admitting Clinician Bill COLES Admitting Clinician Unavailable Lele Rahman Admitting Clinician Unavailable Mike Lund Admitting Clinician Unavailable ELISEO ARCE Admitting Clinician Unavailable DO PORSHA STREETER Admitting Clinician Unavailable Payers Payer Name Policy Type Policy Number Effective Date Expiration Date S gabino [facility] COMM[facility]ITY PLAN [id number] 2012 STAR PLUS OON 00:00:00 [facility] [id number] 2019 DUAL COMPLETE HMO 00:00:00 [facility] [id number] 2019 PLUS 00:00:00 [facility] [id number] 2019 HEALTH [facility] 00:00:00 [employer]NA MEDICARE ADV [id number] 2019 2019 00:00:00 00:00:00 Problems Condition Condition Condition Status Onset Resolution Last Treating Co mments Source Name Details Category Date Date Treatment Clinician Date Dyspnea, Dyspnea, Disease Active Unive rs unspecifie unspecifie 02-11 it y of d type d type 00:00: [address] Gastropare Gastropare Disease Active Overview : Methodi sis sis 4-[address] 00:00: [facility] 00 note l might be different from the original. Added automatic ally from request for surgery [id number] Dysphagia Dysphagia Disease Active Overview: Methodi 4-[address] 00:00: [facility] 00 note l might be different from the original. 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 2020-10-15 Memoria PVI PVI 08-19 17:07:00 l ABLATION ABLATION 00:00: Patel n W/ CARTO / W/ CARTO / 00 GA / T GA / T Active 08/19/2020 [facility] Food Food Disease Active 2019-05 [...] (BMI 2-19 ity of 30-39.9) 30-39.9) 00:00: [place] [facility] Anemia Anemia Disease Active 2014-05 Univers 0-03 ity of 00:00: [place] [facility] Hypovolemi Hypovolemi Disease Active 2014-05 U nivers a due to a due to 0-02 ity of hemorrhage hemorrhage 00:00: [place] [facility] Chest pain Chest pain Disease Active 2014-05 U nivers 0-02 ity of 00:00: [place] [facility] 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:00: [place] shoulder shoulder 00 Medica l arthroplas arthroplas Br anch ty ty Posttrauma Posttrauma Disease Active U nivers tic stress tic stress 08 it y of disorder disorder 00:00: [place] [facility] 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 00:00: [place] virus virus 00 Medical (HIV) (HIV) Branch disease disease Bipolar 2 Bipolar 2 Disease Active Uni vers disorder disorder 11-18 ity of 00:00: [place] [facility] Chronic Chronic Disease Active Univers hepatitis hepatitis 11-18 ity of C C 00:00: [place] [facility] Hypertensi Hypertensi Disease Active U nivers on on 11-18 ity of 00:00: [place] [facility] Allergies, Adverse Reactions, Alerts Allergy Allergy Status Severity Reaction(s) Onset Inactive Treating Comm ents Source Name Type Date Date Clinician sulfamet DA Active SV N/V [facility] hoxazole 1-25 Clear 00:00: Garcia 00 [facility] trimetho DA Active SV [facility] prim 1-25 Clear 00:00: Garcia 00 [facility] codeine DA Active SV N/V [facility] 1-25 Clear 00:00: Garcia 00 [facility] Metoclop Propensi Active [place] ramide [...] Kidney disease [facility] Natural mother [facility] Social History Social Habit Start Date Stop Date Quantity Comments Source History SDOH [facility] Alcohol Frequency Hospita l History SDOH [facility] Alcohol Std Drinks Hospit al History SDOH [facility] B[facility] Tobacco use and 2022-02-11 2022-02-11 Former smokeless Uni versity of exposure 00:00:00 00:00:00 tobacco user [facility] [place] Tobacco Comment 2022-02-11 2022-02-11 Smokes approx 1-2 Un iversity of 00:00:00 00:00:00 cigarettes per [place] Medi porfirio day when she Branch smokes Exposure to 2022-01-31 2022-02-10 Not sure [facility] SARS-CoV-2 (event) 00:00:00 22:53:00 [facility] Alcohol intake 2020-12-08 2020-12-08 Current drinker [facility] 00:00:00 00:00:00 of alcohol Hospital (finding) Cigarettes smoked 2020-09-05 2020-09-[address] current (pack per 00:00:00 00:00:00 Hospita l day) - Reported Cigarette 2020-09-05 2020-09-05 [facility] pack-years 00:00:00 00:00:00 Hospital Alcohol Comment 2016-09-23 2016-09-23 rare [facility] 00:00:00 00:00:00 Hospital History of tobacco 2011-09-29 User of smokeless University of use 00:00:00 tobacco [facility] Sex Ass[birth year] At [birth year] [facility] 00:00:00 00:00:00 Smoking Status Start Date Stop Date Source Ex-smoker 2022-02-11 00:00:00 2022-02-11 00:00:00 Universi ty of [facility] Medications Ordered Filled Start Stop Current Ordering Indication Dosage Frequency Signature Comments Components Source Medication Medication Date Date Medication? Clinician (SIG) Name Name zoster 2021-05- Yes [id number] .5mL 0.5 mL by Univers vaccine, 0-14 10-15 9104 Intramuscu ity of recombinant 00:00: 04:59 lar route [place] (SHINGRIX, 00 :00 once now Medic al [...] o f 1 mg tablet 19:28: at [place] [address] bedtime. Medical Branch traZODone 2-0 Yes 50mg Take 50 mg Un matt 100 mg 9-27 by mouth ity of tablet 19:28: at [place] [address] bedtime. Medical Branch hydralAZINE 2021-0 Yes 25mg [...] 100 mg 04 (two) Medical tablet times [place] daily. amLODIPine 2021-0 Yes 10mg Take 10 mg U nivers (NORVASC) 9- by mouth ity of 10 mg 19:28: daily. [place] tablet 04 Medical Branch clonazePAM 2021-0 Yes 1mg Take 1 mg Un matt (KLONOPIN) 9-27 by mouth ity o f 1 mg tablet 19:28: at [place] [address] bedtime. Medical Branch traZODone 2-0 Yes 50mg Take 50 mg Un matt 100 mg 9-27 by mouth ity of tablet 19:28: at [place] [address] bedtime. Medical Branch hydralAZINE 2-0 Yes 25mg [...] 100 mg 04 (two) Medical tablet times [place] daily. amLODIPine Yes 10mg Take 10 mg U nivers (NORVASC) 9-27 by mouth ity of 10 mg 19:28: daily. [place] tablet 04 Medical Branch clonazePAM 0 Yes 1mg Take 1 mg Un matt (KLONOPIN) 02-16 by mouth ity o f 1 mg tablet 19:28: at [place] [address] bedtime. Medical Branch traZODone Yes 50mg Take 50 mg Un matt 100 mg - by mouth ity of tablet 19:28: at [place] [address] bedtime. Medical Branch cefpodoxime 0 2021- Yes [id number] 200mg Take 1 Univers 200 mg 02-16 tablet by ity of tablet 00:00: 04:59 mouth in [place] 00 :00 the Medical morning Branch and 1 tablet in the evening. Do all this for 3 days. cefpodoxime 2021- Yes [id number] 200mg Take 1 Univers 200 mg 02-16 tablet by ity of tablet 00:00: 04:59 mouth in [place] 00 :00 the Medical morning Branch and 1 tablet in the evening. Do all this for 3 days. haloperidol 2021- No 2mg 2 mg, Slow Univers lactate 02-15 IV Push, ity of (HALDOL) 09:00: 09:12 ONCE, 1 [place] injection 2 00 :00 dose, On Medi porfirio mg Mon Branch 02/15/22 at 0400, Routine hydroCHLORO Yes 25mg 25 mg, Univ ers thiazide -25 Oral, ity of (ESIDRIX) 14:00: DAILY, [place] capsule 25 00 First dose Med ical mg on [place] Branch 02/14/22 at 0900, Until Discontinu ed, Routine butalbital- Yes 1{tbl} 1 tablet, Univers acetaminoph 02-13 Oral, ity of en-caff 18:46: Q6HPRN, [place] (ESGIC) 06 Starting Medical 50-325-40 on Sat [...] of 2,000 mg in 17:00: 18:24 Piggyback, [place] NaCl 0.9% 00 :00 Q24H ABX, Medic [...] it y of (MYCOLOG) 19:00: dose on [place] cream [facility] Medical 02/11/22 at Branch 1400, Until Discontinu ed, Routine busPIRone 2022-0 Yes 30mg 30 mg, Univer s (BUSPAR) 02-11 Oral, BID, ity o f tablet 30 18:00: First dose [place] mg 00 on [facility] 02/11/22 at Branch 1300, Until Discontinu ed, Routine raltegravir 202-0 Yes 400mg 400 mg, Un matt (ISENTRESS) 02-11 Oral, BID, it y of tablet 400 18:00: First dose [place] mg 00 on [facility] 02/11/22 at Branch 1300, Until Discontinu ed, JOE metoprolol 202-0 Yes 100mg 100 mg, Uni vers tartrate 02-11 Oral, BID, ity o f (LOPRESSOR) 18:00: First dose [place] tablet 100 00 on [facility] mg 02/11/22 at Branch 1300, Until Discontinu ed, Routine lisinopriL 202-0 Yes 40mg 40 mg, Unive rs (PRINIVIL,Z 02-11 Oral, BID, it y of ESTRIL) 18:00: First dose [place] tablet 40 00 on [facility] mg 02/11/22 at Branch 1300, Until Discontinu ed, Routine emtricitabi 202-0 Yes 1{tbl} 1 tablet, Univers ne-tenofovi 02-11 Oral, ity of r alafen 18:00: DAILY, [place] (DESCOVY) First dose Medi porfirio tablet 1 on [facility] tablet 02/11/22 at 1300, Until Discontinu ed, Routine ipratropium 2021-0 Yes .5mg 0.5 mg, Uni vers (ATROVENT) 02-11 Inhalation ity of 0.02 % 17:57: , QIDPRN, [place] nebulizer 10 Starting Medica l solution on [facility] Branch 0.5 mg 02/11/22 at 1257, Until Discontinu ed, Routine, Wheezing, Shortness of Breath amLODIPine 2021-0 Yes 10mg 10 mg, Unive rs (NORVASC) 02-11 Oral, ity of tablet 10 17:30: DAILY, [place] mg 00 First dose Medical (after Branch last modificati on) on [facility] 02/11/22 at 1230, Until Discontinu ed, Routine hydrALAZINE 2021- No 25mg 25 mg, Uni vers (APRESOLINE 02-11 Oral, ity of ) tablet 25 17:30: 12:54 DAILY, [place] as mg 00 :55 First dose Medical (after Branch last modificati on) on [facility] 02/11/22 at 1230, Until Discontinu ed, Routine HYDROcodone 2021- No 1{tbl} 1 tablet, Univers -acetaminop 02-11 Oral, ity of hen (NORCO 14:11: 17:37 Q6HPRN, [place] as 5) 5-325 mg 03 :24 Starting Medi porfirio tablet 1 on [facility] Branch tablet 02/11/22 at 0911, Until Tue02/12/22 at 1237, Routine, Pain (scale 7-10) melatonin Yes 3mg 3 mg, Univers (MELATIN) 02-11 Oral, ity of tablet 3 mg 14:08: QHSPRN, [place] 17 Starting Medical on [facility] Branch 02/11/22 at 0908, Until Discontinu ed, Routine, Insomnia acetaminoph 2021- No 1{tbl} 1 tablet, Univers en-codeine 02-11 Oral, ity of (TYLENOL 14:06: 17:37 Q6HPRN, [place] #3) 300-30 19 :24 Starting Medic al mg tablet 1 on [facility] Branch tablet 02/11/22 at 0906, Until Tue02/12/22 at 1237, Routine, Pain (scale 4-6) sennosides- Yes 1{tbl} 1 tablet, Univers docusate 02-11 Oral, ity of sodium 14:06: QDAILYPRN, [place] (SENOKOT-S) 09 Starting Medi porfirio 8.6-50 mg on [facility] Branch per tablet 02/11/22 at 1 tablet 0906, Until Discontinu ed, Routine, Constipati on ondansetron Yes 4mg 4 mg, Slow Univers (ZOFRAN 02-11 IV Push, ity of (PF)) 14:05: Q6HPRN, [place] injection 4 59 Starting Medi porfirio mg on [place] Branch 02/11/22 at 0905, Until Discontinu ed, Routine, Nausea and Vomiting (N/V) acetaminoph 2021-0 Yes 650mg 650 mg, Un matt en 02-11 Oral, ity of (TYLENOL) 14:04: Q6HPRN, [place] tablet 650 37 Starting Medic al mg [...] ity of ) 25 mg 09:10: daily. [place] tablet 54 Medical Branch amLODIPine 0 Yes 10mg Take 10 mg U nivers (NORVASC) 02-11 by mouth ity of 10 mg 09:10: daily. [facility] 54 [facility] Branch piperacilli 0 2021- No 3.375g 3.375 [...] therapy: 72 hours iopamidol 2021-0 2- No [id number] 60mL 60 mL, Univers (ISOVUE 02-11 Intravenou [...] 00 :00 dose, On Medic al mg [facility] Branch 02/11/22 at 0015, JOE emtricitabi 0 Yes [id number] Take one Univers ne-tenofovi 9-12 po daily ity of r alafen 00:00: [place] (DESCOVY) 00 Medical tablet Branch emtricitabi 0 Yes [id number] Take one Univers ne-tenofovi 9-12 po daily ity of r alafen 00:00: [place] (DESCOVY) 00 Medical tablet Branch emtricitabi 0 Yes [id number] Take one Univers ne-tenofovi 9-12 po daily ity of r alafen 00:00: [place] (DESCOVY) 00 Medical tablet Branch emtricitabi Yes [id number] Take one Univers ne-tenofovi 9-12 po daily ity of r alafen 00:00: [place] (DESCOVY) 00 Medical tablet Branch naproxen 2021-0 Yes [id number] 500mg Take 1 U nivers (NAPROSYN) 7-24 tablet by ity of 500 mg 00:00: mouth in [place] tablet 00 the Medical morning Branch and 1 tablet in the evening. Take with meals. methocarbam 2021-0 Yes [id number] 500mg Take 1 Univers oL 500 mg 7-24 tablet by ity o f tablet 00:00: mouth 4 [place] 00 (four) Medical times Branch daily. naproxen 2021-0 Yes [id number] 500mg Take 1 U nivers (NAPROSYN) 7-24 tablet by ity of 500 mg 00:00: mouth in [place] tablet 00 the Medical morning Branch and 1 tablet in the evening. Take with meals. methocarbam 2021-0 Yes [id number] 500mg Take 1 Univers oL 500 mg 7-24 tablet by ity o f tablet 00:00: mouth 4 [place] 00 (four) Medical times Branch daily. naproxen 2021-0 Yes [id number] 500mg Take 1 U nivers (NAPROSYN) 7-24 tablet by ity of 500 mg 00:00: mouth in [place] tablet 00 the Medical morning Branch and 1 tablet in the evening. Take with meals. methocarbam 2021-0 Yes [id number] 500mg Take 1 Univers oL 500 mg 7-24 tablet by ity o f tablet 00:00: mouth 4 [place] 00 (four) Medical times Branch daily. esomeprazol 2021- No 40mg Take 40 mg Univers e (NEXIUM) 11-20 by mouth 2 it y of 40 mg 09:12: 00:00 (two) [place] capsule 03 :00 times Medical daily. Branch amiodarone 2021- No 100mg Take 100 U nivers 100 mg 11-20 mg by ity of tablet 09:11: 00:00 mouth [place] 57 :00 daily. Medical Branch apixaban 2021- No 5mg Take 5 mg Uni vers (ELIQUIS) 5 11-20 by mouth 2 i ty of mg tablet 09:11: 00:00 (two) [place] 35 :00 times Medical daily. Branch traZODONE 2021- No Take by [facility] ers (DESYREL) 11-20 mouth at ity o f 10 mg/mL 09:10: 00:00 [place]time. [place] oral 28 :00 Medical suspension Branch hydralAZINE Yes 25mg Take 25 mg Univers (APRESOLINE 11-20 by mouth ity of ) 25 mg 08:47: daily. [place] tablet 47 Medical Branch cephALEXin 2021- No [id number] 500mg Take 1 Univers (KEFLEX) 10-24 capsule [...] 7-10). Indication s: acute pain buPROPion Yes [id number] 150mg Take 1 U nivers XL 4-12 tablet by ity of (WELLBUTRIN 00:00: mouth [place] XL) 150 mg 00 daily. Medical 24 hr Branch tablet busPIRone Yes [id number] 30mg Take 1 Un matt 30 mg 4-12 tablet by ity of tablet 00:00: mouth 2 00 (two) Medical times Branch daily. SERTraline Yes [id number] 200mg Take 2 Univers 100 mg 4-12 tablets by ity of tablet 00:00: mouth [place] 00 daily. Medical Branch buPROPion Yes [id number] 150mg Take 1 U nivers XL 4-12 tablet by ity of (WELLBUTRIN 00:00: mouth [place] XL) 150 mg 00 daily. Medical 24 hr Branch tablet busPIRone Yes [id number] 30mg Take 1 Un matt 30 mg 4-12 tablet by ity of tablet 00:00: mouth 2 [place] 00 (two) Medical times Branch daily. SERTraline Yes [id number] 200mg Take 2 Univers 100 mg 4-12 tablets by ity of tablet 00:00: mouth [place] 00 daily. Medical Branch buPROPion 2021-0 Yes [id number] 150mg Take 1 U nivers XL 4-12 tablet by ity of (WELLBUTRIN 00:00: mouth [place] XL) 150 mg 00 daily. Medical 24 hr Branch tablet busPIRone 2021-0 Yes [id number] 30mg Take 1 Un matt 30 mg 4-12 tablet by ity of tablet 00:00: mouth 2 [place] 00 (two) Medical times Branch daily. SERTraline 2021-0 Yes [id number] 200mg Take 2 Univers 100 mg 4-12 tablets by ity of tablet 00:00: mouth [place] 00 daily. Medical Branch buPROPion 2021-0 Yes [id number] 150mg Take 1 U nivers XL 4-12 tablet by ity of (WELLBUTRIN 00:00: mouth [place] XL) 150 mg 00 daily. Medical 24 hr Branch tablet busPIRone 2021-0 Yes [id number] 30mg Take 1 Un matt 30 mg 4-12 tablet by ity of tablet 00:00: mouth 2 [place] 00 (two) Medical times Branch daily. SERTraline 2021-0 Yes [id number] 200mg Take 2 Univers 100 mg 4-12 tablets by ity of tablet 00:00: mouth [place] 00 daily. Medical Branch buPROPion 2021-0 Yes [id number] 150mg Take 1 U nivers XL 4-12 tablet by ity of (WELLBUTRIN 00:00: mouth [place] XL) 150 mg 00 daily. Medical 24 hr Branch tablet busPIRone 2021-0 Yes [id number] 30mg Take 1 Un matt 30 mg 4-12 tablet by ity of tablet 00:00: mouth 2 [place] 00 (two) Medical times Branch daily. SERTraline 2021-0 Yes [id number] 200mg Take 2 Univers 100 mg 4-12 tablets by ity of tablet 00:00: mouth [place] 00 daily. Medical Branch raltegravir 2021-0 Yes [id number] 400mg Take 1 Univers (ISENTRESS) 3-28 tablet by ity of 400 mg 00:00: mouth 2 [place] tablet 00 (two) Medical times Branch daily. raltegravir 2021-0 Yes [id number] 400mg Take 1 Univers (ISENTRESS) 3-28 tablet by ity of 400 mg 00:00: mouth 2 [place] tablet 00 (two) Medical times Branch daily. raltegravir 2021-0 Yes [id number] 400mg Take 1 Univers (ISENTRESS) 3-28 tablet by ity of 400 mg 00:00: mouth 2 [place] tablet 00 (two) Medical times Branch daily. raltegravir 2021-0 Yes [id number] 400mg Take 1 Univers (ISENTRESS) 3-28 tablet by ity of 400 mg 00:00: mouth 2 [place] tablet 00 (two) Medical times Branch daily. raltegravir 0 Yes [id number] 400mg Take 1 Univers (ISENTRESS) 3-28 tablet by ity of 400 mg 00:00: mouth 2 [place] tablet 00 (two) Medical times Branch daily. LORazepam 1 2021- No [id number] 1mg Take 1 Univers mg tablet 3-10 [...] times a tablet day. emtricitabi 2021- No [id number] Take one Univers ne-tenofovi 1-20 09-12 po daily ity of r alafen 00:00: 00:00 [place] (DESCOVY) 00 :00 Medical tablet Branch metoprolol 0 Yes [id number] Take 1 [place] tartrate 7-26 tablet Health (Lopressor) 00:00: (100 mg 100 MG 00 total) by tablet mouth 2 (two) times a day AND 0.5 tablets (50 mg total) every night. metoprolol Yes [id number] Take 1 [place] tartrate 7-26 tablet Health [...] area in groin) hydrALAZINE 0 Yes 50mg Q.[id number] Take 50 mg Methodi (APRESOLINE 7-19 [id number] [address] mouth [address] ) 50 MG [...] area in groin) hydrALAZINE 0 Yes 50mg Q.[id number] Take 50 mg Methodi (APRESOLINE 7-19 [id number] mouth [address] [facility] ) 50 MG [...] (affected area in groin) hydrALAZINE Yes 50mg Q.[id number] Take 50 mg Methodi (APRESOLINE 7-19 [id number] [address] mouth 3 st ) 50 MG [...] area in groin) hydrALAZINE 0 Yes 50mg Q.[id number] Take 50 mg Methodi (APRESOLINE 7-19 [id number] [address] mouth 3 [facility] ) 50 MG [...] area in groin) hydrALAZINE 0 Yes 50mg Q.[id number] Take 50 mg Methodi (APRESOLINE 7-19 [id number] mouth 3 [address] ) 50 MG [...] (affected area in groin) hydrALAZINE Yes 50mg Q.[id number] Take 50 mg Methodi (APRESOLINE 7-19 [id number] [address] mouth 3 [address] ) 50 MG [...] (affected area in groin) hydrALAZINE Yes 50mg Q.[id number] Take 50 mg Methodi (APRESOLINE 7-19 [id number] mouth 3 [address] ) 50 MG [...] area in groin) hydrALAZINE 0 Yes 50mg Q.[id number] Take 50 mg Methodi (APRESOLINE 7-19 [id number] mouth [address] ) 50 MG [...] (affected area in groin) hydrALAZINE Yes 50mg Q.[id number] Take 50 mg Methodi (APRESOLINE 7-19 [id number] [address] mouth [address] ) 50 MG [...] (affected area in groin) hydrALAZINE Yes 50mg Q.[id number] Take 50 mg Methodi (APRESOLINE 7-19 [id number] mouth 3 [address] ) 50 MG [...] area in groin) hydrALAZINE 2020-0 Yes 50mg Q.[id number] Take 50 mg Methodi (APRESOLINE 7-19 [id number] [address] mouth 3 [address] ) 50 MG [...] area in groin) hydrALAZINE 0 Yes 50mg Q.[id number] Take 50 mg Methodi (APRESOLINE 7-19 [id number] [address] mouth [address] ) 50 MG [...] (affected area in groin) hydrALAZINE Yes 50mg Q.[id number] Take 50 mg Methodi (APRESOLINE 7-19 [id number] [address] mouth [address] ) 50 MG [...] tablet 25 daily. l nystatin-tr 2020-0 Yes [id number] Apply to [facility] iainolone 7-06 area(s) 3 ity of cream 00:00: (three) [place] 00 times Medical daily. Branch nystatin-tr 2020-0 Yes [id number] Apply to [facility] iamcinolone 7-06 area(s) 3 ity of cream 00:00: (three) [place] 00 times Medical daily. Branch nystatin-tr 2020-0 Yes [id number] Apply to [facility] iamcinolone 7-06 area(s) 3 ity of cream 00:00: (three) [place] 00 times Medical daily. Branch nystatin-tr 2020-0 Yes [id number] Apply to [facility] iamcinolone 7-06 area(s) 3 ity of cream 00:00: (three) [place] 00 times Medical daily. Branch nystatin-tr 2020-0 Yes [id number] Apply to [facility] iamcinolone 7-06 area(s) 3 ity of cream 00:00: (three) [place] 00 times Medical daily. Branch budesonide- 2020-0 2021- No 1{puff} QD Inhale 1 Methodi formoteroL 6-25 06-[address] (SYMBICORT) 14:37: 00:00 morning. H ospita 160-4.5 02 :00 l mcg/actuati on inhaler hydrALAZINE 0 Yes [id number] 50mg Q.[id number] Take 1 [facility] (Apresoline 6-11 [id number] tablet (50 Health ) 50 MG 00:00: 3D mg total) tablet 00 by mouth 3 (three) times a day. hydrALAZINE 0 Yes [id number] 50mg Q.[id number] Take 1 [place] (Apresoline 6-11 [id number] tablet (50 Health ) 50 MG 00:00: 3D mg total) tablet 00 by mouth 3 (three) times a day. Breztri Yes [facility] Aerosphere 10-29 Health 160-9-4.8 00:00: MCG/ACT 00 aerosol Breztri 2020-0 Yes [facility] Aerosphere 09 Health 160-9-4.8 00:00: MCG/ACT 00 aerosol albuterol [...] No 200mg 200 mg. [facility] (Zoloft) 5-30 - Health 100 MG 00:00: 00:00 tablet 00 :00 mupirocin Yes [facility] (Bactroban) 5-28 Health 2 % 00:00: ointment 00 mupirocin Yes [place] (Bactroban) 528 Health 2 % 00:00: ointment 00 nystatin 2020- No [id number] Q.25D Take 5 mL Methodi (MYCOSTATIN 10-06 [...] ia 4-10 (Same as: l 14:00: Norvasc) [place] 00 emtricitabi No Notes: Caesar lisa ne [...] ia 4-10 (Same as: l 14:00: Zoloft) [place] pantoprazol No Notes: Caesar lisa e 4-10 Tablet l 14:00: should not [place] 00 be chewed or crushed. (Same as: Protonix) Amiodarone No Notes: Memor ia 4-10 (Same as: l 14:00: Cordarone) [place] Amlodipine No Notes: Memor ia 4-10 (Same as: l 14:00: Norvasc) [place] emtricitabi No Notes: Caesar lisa ne 200 MG / 4-10 (Same as: l tenofovir 14:00: Descovy) Herm ariel alafenamide 00 Non-formul 25 MG Oral nancy Tablet [Descovy] Sertraline No Notes: Memor ia 4-10 (Same as: l 14:00: Zoloft) [place] 00 pantoprazol No Notes: Caesar lisa e 4-10 Tablet l 14:00: should not [place] 00 be chewed or crushed. (Same as: Protonix) Amiodarone No Notes: Memor ia 4-10 (Same as: l 14:00: Cordarone) [place] 00 Amlodipine No Notes: Memor ia 4-10 (Same as: l 14:00: Norvasc) [place] emtricitabi No Notes: Caesar lisa ne 200 MG / 4-10 (Same as: l tenofovir 14:00: Descovy) Herm ariel alafenamide 00 Non-formul 25 MG Oral nancy Tablet [Descovy] Sertraline No Notes: Memor ia 4-10 (Same as: l 14:00: Zoloft) [place] pantoprazol No Notes: Caesar lisa e 4-10 Tablet l 14:00: should not [place] 00 be chewed or crushed. (Same as: Protonix) Amiodarone No Notes: Memor ia 4-10 (Same as: l 14:00: Cordarone) Amlodipine No Notes: Memor ia 4-10 (Same as: l 14:00: Norvasc) [place] 00 emtricitabi No Notes: Caesar lisa ne 200 MG / 4-10 (Same as: l tenofovir 14:00: Descovy) Herm ariel alafenamide 00 Non-formul 25 MG Oral nancy Tablet [Descovy] Sertraline No Notes: Memor ia 4-10 (Same as: l 14:00: Zoloft) [place] 00 pantoprazol No Notes: Caesar lisa e 4-10 Tablet l 14:00: should not [place] 00 be chewed or crushed. (Same as: Protonix) Amiodarone No Notes: Memor ia 4-10 (Same as: l 14:00: Cordarone) [place] 00 Amlodipine No Notes: Memor ia 4-10 (Same as: l 14:00: Norvasc) [place] 00 emtricitabi No Notes: Caesar lisa ne 200 MG / 4-10 (Same as: l tenofovir 14:00: Descovy) Herm ariel alafenamide 00 Non-formul 25 MG Oral nancy Tablet [Descovy] Sertraline No Notes: Memor ia 4-10 (Same as: l 14:00: Zoloft) [place] pantoprazol No Notes: Caesar lisa e 4-10 Tablet l 14:00: should not [place] 00 be chewed or crushed. (Same as: Protonix) Amiodarone No Notes: Memor ia 4-10 (Same as: l 14:00: Cordarone) [place] 00 Amlodipine No Notes: Memor ia 4-10 (Same as: l 14:00: Norvasc) emtricitabi No Notes: Caeasr lisa ne 200 MG / 4-10 (Same [...] Memoria 4-10 Same as: l 02:00: Eliquis [place] Hydralazine No Notes: Caesar lisa Hydrochlori 4-10 (Same as: l de 50 MG 02:00: Apresoline Her mitchell Oral Tablet 00 ) May interfere w/enteral feedings Take With Food Sucralfate No Notes: May M emoria 4-10 interfere l 02:00: w/enteral [place] 00 feeds - Take 1 hr before or 2 hr after antacids, dairy pdt, meals & minerals - On empty stomach. For patients unable to swallow tablet, dissolve in 10mL - 30mL of water or juice and stir before giving. (Same As: Carafate) Saline No Notes: Memoria Flush 0.9% 4-10 (Same as: l 02:00: BD [place] 00 Posiflush) Eliquis No Notes: Memoria 4-10 Same as: l 02:00: Eliquis [place] Hydralazine No Notes: Caesar lisa Hydrochlori 4-10 [...] 0.9% 4-10 (Same as: l 02:00: BD [place] 00 Posiflush) Eliquis No Notes: Memoria 4-10 Same as: l 02:00: Eliquis [place] Hydralazine No Notes: Caesar lisa Hydrochlori 4-10 (Same as: l de 50 MG 02:00: Apresoline Her mitchell Oral Tablet 00 ) May interfere w/enteral feedings Take With Food Sucralfate No Notes: May M emoria 4-10 interfere l 02:00: w/enteral [place] 00 feeds - Take 1 hr before or 2 hr after antacids, dairy pdt, meals & minerals - On empty stomach. For patients unable to swallow tablet, dissolve in 10mL - 30mL of water or juice and stir before giving. (Same As: Carafate) Saline No Notes: Memoria Flush 0.9% 4-10 (Same as: l 02:00: BD [place] Posiflush) Eliquis No Notes: Memoria 4-10 Same as: l 02:00: Eliquis [place] 00 Hydralazine No Notes: Caesar lisa Hydrochlori [...] 0.9% 4-10 (Same as: l 02:00: BD [place] 00 Posiflush) Eliquis No Notes: Memoria 4-10 [...] not exceed l #3 00:12: 4gm/day of [place] acetaminop hen. (Same as: Tylenol with Codeine # 3) acetaminoph No Notes: Do M emoria en-codeine 4-10 not exceed l #3 00:12: 4gm/day of [place] acetaminop hen. (Same as: Tylenol with Codeine # 3) acetaminoph No Notes: Do M emoria en-codeine 4-10 not exceed l #3 00:12: 4gm/day of [place] acetaminop hen. (Same as: Tylenol with Codeine # 3) acetaminoph 2020- No Notes: Do M emoria en-codeine 4-10 not exceed l #3 00:12: 4gm/day of acetaminop hen. (Same as: Tylenol with Codeine # 3) Buspirone 2020-0 No Notes: Memori a 08-29 (Same As: l 22:00: BuSpar) Lisinopril 0 No 40 mg, 1 Mem oria 4-09 tab, l 22:00: Route: PO, [place] 00 Drug form: TAB, BID, Dosing Weight [...] tab, l Tablet 22:00: Route: PO, Skylar [[facility]] 00 Drug form: TAB, [...] oria - tab, l 22:00: Route: PO, [place] 00 Drug form: TAB, BID, Dosing Weight [...] oria 4-09 tab, l 22:00: Route: PO, [place] 00 Drug form: TAB, BID, Dosing Weight 97.273, kg, Start date: 08/29/20 17:00:00 CDT, Duration: 30 day, Stop date: 09/28/20 9:00:00 CDT metoprolol 2021-0 No 100 mg, 1 Me moria tartrate 4-09 tab, l 22:00: Route: PO, [place] 00 Drug form: TAB, BID, Dosing Weight [...] oria 4-09 tab, l 22:00: Route: PO, [place] 00 Drug form: TAB, BID, Dosing Weight [...] tartrate - tab, l 22:00: Route: PO, [place] 00 Drug form: TAB, BID, Dosing Weight [...] oria 4-09 tab, l 22:00: Route: PO, [place] 00 Drug form: TAB, BID, Dosing Weight [...] Notes: Memoria 4-09 (Same l 17:07: as:MORPhin [place] 00 e Sulfate) Morphine No Notes: Memoria 4-09 (Same l 17:07: as:MORPhin [place] 00 e Sulfate) Morphine No Notes: Memoria 4-09 (Same l 17:07: as:MORPhin [place] 00 e Sulfate) Morphine No Notes: Memoria 4-09 (Same l 17:07: as:MORPhin [place] 00 e Sulfate) Morphine No Notes: Memoria 4-09 (Same l 17:07: as:MORPhin [place] 00 e Sulfate) Morphine No Notes: Memoria 4-09 (Same l 17:07: as:MORPhin [place] 00 e Sulfate) Morphine No Notes: Memoria 4-09 (Same l 17:07: as:MORPhin [place] 00 e Sulfate) buPROPion No 150 mg, [...] tab, PO, l oral 15:27: Daily, # [place] enteric 00 30 tab, 0 coated Refill(s), tablet Pharmacy: [facility] 149, 162.56, cm, 08/29/20 5:30:00 CDT, Height, 97.273, kg, 08/29/20 5:30:00 CDT, Weight pantoprazol 2021-0 Yes 40 mg = 1 M emoria e 40 mg 4-09 tab, PO, l oral 15:27: Daily, # [place] enteric 00 30 tab, 0 coated Refill(s), tablet Pharmacy: [facility] 149, 162.56, cm, 08/29/20 5:30:00 CDT, Height, 97.273, kg, 08/29/20 5:30:00 CDT, Weight pantoprazol 1-0 Yes 40 mg = 1 M emoria e 40 mg 4-09 tab, PO, l oral 15:27: Daily, # [place] enteric 00 30 tab, 0 coated Refill(s), tablet Pharmacy: [facility] 149, 162.56, cm, 08/29/20 5:30:00 CDT, Height, 97.273, kg, 08/29/20 5:30:00 CDT, Weight pantoprazol 1-0 Yes 40 mg = 1 M emoria e 40 mg 4-09 tab, PO, l oral 15:27: Daily, # [place] enteric 00 30 tab, 0 coated Refill(s), tablet Pharmacy: [facility] 149, 162.56, cm, 08/29/20 5:30:00 CDT, Height, 97.273, kg, 08/29/20 5:30:00 CDT, Weight pantoprazol 1-0 Yes 40 mg = 1 M emoria e 40 mg 4-09 tab, PO, l oral 15:27: Daily, # Matry enteric 00 30 tab, 0 coated Refill(s), [...] tab, PO, l oral 15:26: Daily, # [place] enteric 00 30 tab, 0 coated Refill(s) tablet sucralfate 2020-0 Yes 1 gm = 1 Mem oria 1 g oral 4-09 tab, PO, l tablet 15:26: Q12H, # 28 Skylar nn 00 tab, 0 Refill(s), Pharmacy: [place] [id number], 162.56, cm, 08/29/20 5:30:00 CDT, Height, 97.273, kg, 08/29/20 5:30:00 CDT, Weight pantoprazol 2020-0 No 40 mg = 1 M emoria e 40 mg 4-09 tab, PO, l oral 15:26: Daily, # [place] enteric 00 30 tab, 0 coated Refill(s) [...] tab, PO, l oral 15:26: Daily, # [place] enteric 00 30 tab, 0 coated Refill(s) [...] 00 tab, 0 Refill(s), Pharmacy: [place] [id number], 162.56, cm, 08/29/20 5:30:00 CDT, Height, 97.273, [...] 00 tab, 0 Refill(s), Pharmacy: [place] [id number], 162.56, cm, 08/29/20 5:30:00 CDT, Height, 97.273, kg, 08/29/20 5:30:00 CDT, Weight pantoprazol 2020-0 No 40 mg = 1 M emoria e 40 mg 4-09 tab, PO, l oral 15:26: Daily, # [place] enteric 00 30 tab, 0 coated Refill(s) [...] 0.9% 4-09 (Same as: l 15:25: BD [place] 00 Posiflush) Lorazepam No Notes: Memori a [...] a 4-09 (Same as: l 15:25: Ativan) [place] 00 Saline No Notes: Memoria Flush 0.9% 4-09 (Same as: l 15:25: BD [place] 00 Posiflush) Lorazepam No Notes: Memori a 4-09 (Same as: l 15:25: Ativan) [place] Saline No Notes: Memoria Flush 0.9% 4-09 (Same as: l 15:25: BD [place] 00 Posiflush) Lorazepam No Notes: Memori a 4-09 (Same as: l 15:25: Ativan) Saline No Notes: Memoria Flush 0.9% - (Same as: l 15:25: BD [place] 00 Posiflush) Lorazepam No Notes: Memori a - (Same as: l 15:25: Ativan) Saline No Notes: Memoria Flush 0.9% 08-29 (Same as: l 15:25: BD [place] 00 Posiflush) Lorazepam No Notes: Memori a 4- (Same as: l 15:25: Ativan) Isuprel HCl [...] Memori a 08-29 Route: l 14:01: IVP, [place] 00 Q5Min, Dosing Weight 97.273, kg, PRN [...] oria ne 08-29 Route: l 14:01: IVP, [place] 00 Q5Min, Dosing Weight 97.273, kg, PRN [...] ia 08-29 Route: l 14:01: IVP, ONCE, [place] 00 Dosing Weight 97.273, kg, PRN Nausea [...] lisa 08-29 Route: l 14:01: IVP, PRN, [place] 00 Dosing Weight 97.273, kg, PRN Benzodiaze [...] ia 08-29 Route: l 14:01: IVP, ONCE, [place] 00 Dosing Weight 97.273, kg, PRN Nausea [...] oria ne 08-29 Route: l 14:01: IVP, [place] 00 Q5Min, Dosing Weight 97.273, kg, PRN Pain Score 7-10, Start date: 08/29/20 9:01:00 CDT, Duration: 4 doses or times, Stop date: Limited # of times Flumazenil 2020-0 No 0.2 mg, Caesar lisa 08-29 Route: l 14:01: IVP, PRN, [place] 00 Dosing Weight 97.273, kg, PRN Benzodiaze pine Reversal, Initial dose, Start date: 08/29/20 9:01:00 CDT, Duration: 30 day, Stop date: 09/28/20 9:00:00 CDT Naloxone 1-0 No 0.4 mg, Memori a 08-29 Route: l 14:01: IVP, [place] 00 Q2MIN, Dosing Weight 97.273, kg, PRN Narcotic Reversal, Start date: 08/29/20 9:01:00 CDT, Duration: 8 doses or times, Stop date: Limited # of times Ondansetron 1-0 No 4 mg, Memor ia 08-29 Route: l 14:01: IVP, ONCE, [place] 00 Dosing Weight 97.273, kg, PRN Nausea [...] 08-29 Route: PO, l 14:01: Drug form: [place] 00 TAB, ONCE, Dosing Weight 97.273, kg, [...] Memori a 08-29 Route: l 14:01: IVP, [place] 00 Q5Min, Dosing Weight 97.273, kg, PRN [...] oria ne 08-29 Route: l 14:01: IVP, [place] 00 Q5Min, Dosing Weight 97.273, kg, PRN [...] Memori a 08-29 Route: l 14:01: IVP, [place] 00 Q2MIN, Dosing Weight 97.273, kg, PRN Narcotic Reversal, Start date: 08/29/20 9:01:00 CDT, Duration: 8 doses or times, Stop date: Limited # of times Flumazenil 1-0 No 0.2 mg, Caesar lisa 08-29 Route: l 14:01: IVP, PRN, [place] Dosing Weight 97.273, kg, PRN Benzodiaze pine Reversal, Initial dose, Start date: 08/29/20 9:01:00 CDT, Duration: 30 day, Stop date: 09/28/20 9:00:00 CDT Ondansetron 2021-0 No 4 mg, Memor ia 08-29 Route: l 14:01: IVP, ONCE, [place] 00 Dosing Weight 97.273, kg, PRN Nausea & Vomiting, Start date: 08/29/20 9:01:00 CDT Naloxone 2021-0 No 0.4 mg, Memori a 08-29 Route: l 14:01: IVP, [place] 00 Q2MIN, Dosing Weight 97.273, kg, PRN Narcotic Reversal, Start date: 08/29/20 9:01:00 CDT, Duration: 8 doses or times, Stop date: Limited # of times Ondansetron 2021-0 No 4 mg, Memor ia 4-09 Route: l 14:01: IVP, ONCE, [place] 00 Dosing Weight 97.273, kg, PRN Nausea & Vomiting, Start date: 08/29/20 9:01:00 CDT Labetalol 1-0 No 10 mg, Memori a 08-29 Route: l 14:01: IVP, [place] 00 Q5Min, Dosing Weight 97.273, kg, PRN [...] oria ne 08-29 Route: l 14:01: IVP, [place] 00 Q5Min, Dosing Weight 97.273, kg, PRN [...] Memori a 08-29 Route: l 14:01: IVP, [place] 00 Q2MIN, Dosing Weight 97.273, kg, PRN [...] oria ne 08-29 Route: l 14:01: IVP, [place] 00 Q5Min, Dosing Weight 97.273, kg, PRN [...] Drug form: l 10 13:15: INJ, Start [place] microgram 00 date: 08/29/20 8:15:00 CDT, Stop date: 08/29/20 9:15:00 CDT norepinephr 2020-0 No Route: IV, Memoria ine (ANES) 08-29 Drug form: l 10 13:15: INJ, Start [place] microgram 00 date: 08/29/20 8:15:00 CDT, Stop [...] Drug form: l 10 13:15: INJ, Start [place] microgram 00 date: 08/29/20 8:15:00 CDT, Stop date: 08/29/20 9:15:00 CDT Sodium 1-0 No Route: IV, Memor ia Chloride 08-29 Total l 0.9% IV 12:30: Volume: [place] (ANES) 1000 00 1,000, mL Start date: [...] 4-09 Total l 0.9% IV 12:30: Volume: [place] (ANES) 1000 00 1,000, mL Start date: 08/29/20 7:30:00 CDT, Stop date: 08/29/20 8:30:00 CDT Sodium 202-0 No Route: IV, Memor ia Chloride 4-09 Total l 0.9% IV 12:30: Volume: Marty (ANES) 1000 00 1,000, mL Start date: 08/29/20 7:30:00 CDT, Stop date: 08/29/20 8:30:00 CDT Sodium 2021-0 No Route: IV, Memor ia Chloride 4-09 Total l 0.9% IV 12:30: Volume: [place] (ANES) 1000 00 1,000, mL Start date: [...] PO, l Hydrochlori 11:42: Q24H, # 30 [place] de 150 MG 00 tab, 0 Extended Refill(s) Release Tablet 24 HR Yes 150 mg = 1 Memori a Bupropion 4-09 tab, PO, l Hydrochlori 11:42: Q24H, # 30 [place] de 150 MG 00 tab, 0 Extended Refill(s) Release Tablet 24 HR Yes 150 mg = 1 Memori a Bupropion 4-09 tab, PO, l Hydrochlori 11:42: Q24H, # 30 [place] de 150 MG 00 tab, 0 Extended Refill(s) Release Tablet 24 HR Yes 150 mg = 1 Memori a Bupropion 4-09 tab, PO, l Hydrochlori 11:42: Q24H, # 30 [place] de 150 MG 00 tab, 0 Extended [...] PO, l Hydrochlori 11:42: Q24H, # 30 [place] de 150 MG 00 tab, 0 Extended [...] - Q12H, tab, l Tablet 11:41: 0 [place] [Eliquis] 00 Refill(s), For Atrial Fibrilatio n apixaban 2020-0 Yes 5 mg, PO, Me moria MG Oral 08-29 Q12H, tab, l Tablet 11:41: 0 [place] [Eliquis] 00 Refill(s), For Atrial Fibrilatio n apixaban 5 2020-0 Yes 5 mg, PO, Me moria MG Oral 4- Q12H, tab, l Tablet 11:41: 0 [place] [Eliquis] 00 Refill(s), For Atrial Fibrilatio n apixaban 5 2020-0 Yes 5 mg, PO, Me moria MG Oral 4- Q12H, tab, l Tablet 11:41: 0 [place] [Eliquis] 00 Refill(s), For Atrial Fibrilatio n apixaban 5 Yes 5 mg, PO, Me moria MG Oral 4-09 Q12H, tab, l Tablet 11:41: 0 [place] [Floydis] 00 Refill(s), For Atrial Fibrilatio n AMIODarone Yes 200 mg = 1 M emoria 200 mg oral 4-09 tab, PO, l tablet 11:38: Daily, # [place] 00 90 tab, 3 Refill(s) AMIODarone Yes [...] tab, PO, l tablet 11:38: Daily, # [place] 00 90 tab, 3 Refill(s) AMIODarone Yes [...] tab, PO, l tablet 11:38: Daily, # [place] 00 90 tab, 3 Refill(s) normal No [...] [place] [facility] albuterol Yes [facility] 90 4-14 [...] [place] [facility] PFIZER COVID-19 2020-07-23 Completed [facility] PFIZER COVID-19 2020-07-23 Completed [facility]:00 [facility] PFIZER COVID-19 2020-07-23 Completed [facility] 00:00:00 [facility] PFIZER COVID-19 2020-07-23 Completed [facility] VACCIN[facility] 00:00:00 [facility] PFIZER COVID-19 2020-07-23 Completed [facility]ACC[facility] 00:00:00 Hospital PFIZER COVID-19 2020-07-23 Completed [facility]ACC[facility] 00:00:00 [facility] PFIZER COVID-19 2020-07-23 Completed [facility] 00:00:00 Hospital PFIZER COVID-19 2020-07-23 Completed [facility] 00:00:00 Hospital PFIZER COVID-19 2020-07-23 Completed [facility]ACC[facility] 00:00:00 [facility] PFIZER COVID-19 2020-07-23 Completed [facility]ACC[facility] 00:00:00 Hospital PFIZER COVID-19 2020-07-23 Completed [facility] 00:00:00 Hospital PFIZER COVID-19 2020-07-23 Completed [facility] 00:00:00 [facility] SARS-COV-2 COVID-19 2020-07-23 Completed Unive rsity of PFIZER VACCINE 00:00:[address] [facility] porfirio Branch PFIZER COVID-19 2020-07-23 Completed [facility] 00:00:00 Hospital PFIZER COVID-19 2020-07-02 Completed [facility] 00:00:00 Hospital PFIZER COVID-19 2020-07-02 Completed [facility] 00:00:00 Hospital PFIZER COVID-19 2020-07-02 Completed [facility]ACC[facility] 00:00:00 [facility] PFIZER COVID-19 2020-07-02 Completed [facility]ACC[facility] 00:00:00 Hospital PFIZER COVID-19 2020-07-02 Completed [facility] 00:00:00 Hospital PFIZER COVID-19 2020-07-02 Completed [facility]ACC[facility] 00:00:00 [facility] PFIZER COVID-19 2020-07-02 Completed [facility] VACC[facility] 00:00:00 [facility] PFIZER COVID-19 2020-07-02 Completed [facility]ACC[facility] 00:00:00 Hospital PFIZER COVID-19 2020-07-02 Completed [facility] 00:00:00 Hospital PFIZER COVID-19 2020-07-02 Completed [facility] 00:00:00 Hospital PFIZER COVID-19 2020-07-02 Completed [facility]ACC[facility] 00:00:00 [facility] PFIZER COVID-19 2020-07-02 Completed [facility] VACCINATION 00:00:00 [facility] SARS-COV-2 COVID-19 2020-07-02 Completed Unive rsity of PFIZER VACCINE 00:00:[address] [facility] PFIZER COVID-19 2020-07-02 Completed [facility]ACC[facility] 00:00:00 [facility] Influenza Virus 2017-03-08 Completed Universit y of Vaccine 00:00:00 [facility] Influenza Virus 2017-03-08 Completed Universit y of Vaccine 00:00:00 [facility] Influenza Virus 2017-03-08 Completed Universit y of Vaccine 00:00:00 [facility] Influenza Virus 2017-03-08 Completed Universit y of Vaccine 00:00:00 [facility] Influenza Virus 2017-03-08 Completed Universit y of Vaccine 00:00:00 [facility] Influenza Virus 2014-01-30 Completed Universit y of Vaccine (3+ yrs) 00:00:00 [facility] Branch Pneumococcal 13 2014-01-30 Completed Universit y of Conjugate, PCV13 00:00:00 [facility] dical (Prevnar 13) Branch Influenza Virus 2014-01-30 Completed Universit y of Vaccine (3+ yrs) 00:00:00 [facility] Pneumococcal 13 2014-01-30 Completed Universit y of Conjugate, PCV13 00:00:00 [facility] dical (Prevnar 13) [place] Influenza Virus 2014-01-30 Completed Universit y of Vaccine (3+ yrs) 00:00:00 [place] [facility] Pneumococcal 13 2014-01-30 Completed Universit y of Conjugate, PCV13 00:00:00 [facility] dical (Prevnar 13) Branch Influenza Virus 2014-01-30 Completed Universit y of Vaccine (3+ yrs) 00:00:00 [facility] dical Branch Pneumococcal 13 2014-01-30 Completed Universit y of Conjugate, PCV13 00:00:00 [facility] dical (Prevnar 13) Branch Influenza Virus 2014-01-30 Completed Universit y of Vaccine (3+ yrs) 00:00:00 [facility] dical Branch Pneumococcal 13 2014-01-30 Completed Universit y of Conjugate, PCV13 00:00:00 [facility] dical (Prevnar 13) Branch Pneumococcal 2012-02-16 Completed University o f Polysaccharide, 00:00:00 [place] [facility] PPSV23 (PNEUMOVAX) Branch Influenza Virus 2012-02-16 Completed Universit y of Vaccine 00:00:00 [facility] PPD (TB) 2012-02-16 Completed University of 00:00:00 [facility] Pneumococcal 2012-02-16 Completed University o f Polysaccharide, 00:00:00 [place] [facility] PPSV23 (PNEUMOVAX) Branch Influenza Virus 2012-02-16 Completed Universit y of Vaccine 00:00:00 [facility] PPD (TB) 2012-02-16 Completed University of 00:00:00 [facility] Pneumococcal 2012-02-16 Completed University o f Polysaccharide, 00:00:00 [place] [facility] PPSV23 (PNEUMOVAX) Branch Influenza Virus 2012-02-16 Completed Universit y of Vaccine 00:00:00 [facility] PPD (TB) 2012-02-16 Completed University of 00:00:00 [facility] Pneumococcal 2012-02-16 Completed University o f Polysaccharide, 00:00:00 [place] [facility] PPSV23 (PNEUMOVAX) Branch Influenza Virus 2012-02-16 Completed Universit y of Vaccine 00:00:00 [facility] PPD (TB) 2012-02-16 Completed University of 00:00:00 [facility] Pneumococcal 2012-02-16 Completed University o f Polysaccharide, 00:00:00 [place] [facility] PPSV23 (PNEUMOVAX) Branch Influenza Virus 2012-02-16 Completed Universit y of Vaccine 00:00:00 [facility] PPD (TB) 2012-02-16 Completed University of 00:00:00 [place] [facility] Hep B, Adol or Pedi 2011-09-01 Completed Unive rsity of Dosage 00:00:00 [place] [facility] Hep B, Adol or Pedi 2011-09-01 Completed Unive rsity of Dosage 00:00:00 [place] [facility] Hep B, Adol or Pedi 2011-09-01 Completed Unive rsity of Dosage 00:00:00 [facility] Hep B, Adol or Pedi 2011-09-01 Completed Unive rsity of Dosage 00:00:00 [place] [facility] Hep B, Adol or Pedi 2011-09-01 Completed Unive rsity of Dosage 00:00:00 [facility] Hep B, Adol or Pedi 2011-03-17 Completed Unive rsity of Dosage 00:00:00 [place] [facility] Hep B, Adol or Pedi 2011-03-17 Completed Unive rsity of Dosage 00:00:00 [facility] Hep B, Adol or Pedi 2011-03-17 Completed Unive rsity of Dosage 00:00:00 [place] [facility] Hep B, Adol or Pedi 2011-03-17 Completed Unive rsity of Dosage 00:00:00 [facility] Hep B, Adol or Pedi 2011-03-17 Completed Unive rsity of Dosage 00:00:00 [facility] Influenza Virus 2011-02-10 Completed Universit y of Vaccine 00:00:00 [facility] Hep B, Adol or Pedi 2011-02-10 Completed Unive rsity of Dosage 00:00:00 [facility] Influenza Virus 2011-02-10 Completed Universit y of Vaccine 00:00:00 [facility] Hep B, Adol or Pedi 2011-02-10 Completed Unive rsity of Dosage 00:00:00 [facility] Influenza Virus 2011-02-10 Completed Universit y of Vaccine 00:00:00 [facility] Hep B, Adol or Pedi 2011-02-10 Completed Unive rsity of Dosage 00:00:00 [facility] Influenza Virus 2011-02-10 Completed Universit y of Vaccine 00:00:00 [facility] Hep B, Adol or Pedi 2011-02-10 Completed Unive rsity of Dosage 00:00:00 [facility] Influenza Virus 2011-02-10 Completed Universit y of Vaccine 00:00:00 [place] [facility] Hep B, Adol or Pedi 2011-02-10 Completed Unive rsity of Dosage 00:00:00 [facility] PPD (TB) 2010-11-18 Completed University of 00:00:00 [facility] TDAP (ADACEL) 2010-11-18 Completed University of VACCINE 00:00:00 [facility] PPD (TB) 2010-11-18 Completed University of 00:00:00 [facility] TDAP (ADACEL) 2010-11-18 Completed University of VACCINE 00:00:00 [facility] PPD (TB) 2010-11-18 Completed University of 00:00:00 [facility] TDAP (ADACEL) 2010-11-18 Completed University of VACCINE 00:00:00 [facility] PPD (TB) 2010-11-18 Completed University of 00:00:00 [facility] TDAP (ADACEL) 2010-11-18 Completed University of VACCINE 00:00:00 [facility] PPD (TB) 2010-11-18 Completed University of 00:00:00 [facility] TDAP (ADACEL) 2010-11-18 Completed University of VACCINE 00:00:00 [facility] HEPATITIS A 2004-03-02 Completed University of 00:00:00 [facility] HEPATITIS A 2004-03-02 Completed University of 00:00:00 [facility] HEPATITIS A 2004-03-02 Completed University of 00:00:00 [facility] HEPATITIS A 2004-03-02 Completed University of 00:00:00 [facility] HEPATITIS A 2004-03-02 Completed University of 00:00:00 [facility] HEPATITIS A 2003-08-01 Completed University of 00:00:00 [facility] HEPATITIS A 2003-08-01 Completed University of 00:00:00 [facility] HEPATITIS A 2003-08-01 Completed University of 00:00:00 [facility] HEPATITIS A 2003-08-01 Completed University of 00:00:00 [facility] HEPATITIS A 2003-08-01 Completed University of 00:00:00 [facility] Pneumococcal 2001-10-04 Completed University o f Polysaccharide, 00:00:00 [place] [facility] PPSV23 (PNEUMOVAX) Branch PPD (TB) 2001-10-04 Completed University of 00:00:00 [facility] Pneumococcal 2001-10-04 Completed University o f Polysaccharide, 00:00:00 [place] [facility] PPSV23 (PNEUMOVAX) Branch PPD (TB) 2001-10-04 Completed University of 00:00:00 [facility] Pneumococcal 2001-10-04 Completed University o f Polysaccharide, 00:00:00 [place] [facility] PPSV23 (PNEUMOVAX) Branch PPD (TB) 2001-10-04 Completed University of 00:00:00 [facility] Pneumococcal 2001-10-04 Completed University o f Polysaccharide, 00:00:00 [place] [facility] PPSV23 (PNEUMOVAX) Branch PPD (TB) 2001-10-04 Completed University of 00:00:00 [facility] Pneumococcal 2001-10-04 Completed University o f Polysaccharide, 00:00:00 [place] [facility] PPSV23 (PNEUMOVAX) Branch PPD (TB) 2001-10-04 Completed [facility] 00:00:00 [facility] Vital Signs Vital Name Observation Time Observation Value Comments Source Systolic blood 2022-02-16 21:41:00 169 mm[Hg] Univer sity of pressure [facility] Diastolic blood 2022-02-16 21:41:00 86 mm[Hg] Unive rsity of [facility] Heart rate 2022-02-16 21:41:00 51 /min [facility] Body temperature 2022-02-16 21:41:00 36.56 Amina [facility] rate 2022-02-16 21:41:00 17 /min [facility] Oxygen saturation in 2022-02-16 21:41:00 98 /min [facility] Arterial blood by [facility] Pulse oximetry [place] Body height 2022-02-11 16:02:00 162.6 cm [facility] Body weight 2022-02-11 16:02:00 79.379 kg [facility] BMI 2022-02-11 16:02:00 30.04 kg/m2 [facility] Systolic blood 2021-11-20 13:47:00 165 mm[Hg] Univer sity of [facility] Diastolic blood 2021-11-20 13:47:00 83 mm[Hg] Unive rsity of [facility] Heart rate 2021-11-20 13:47:00 58 /min [facility] Body temperature 2021-11-20 13:42:00 36.39 Amina [facility] Respiratory rate 2021-11-20 13:42:00 16 /min [facility] Body height 2021-11-20 13:42:00 162.6 cm [facility] Body weight 2021-11-20 13:42:00 84.369 kg [facility] BMI 2021-11-20 13:42:00 31.93 kg/m2 [facility] Systolic blood 2021-07-14 15:18:00 142 mm[Hg] [facility] Diastolic blood 2021-07-14 15:18:00 76 mm[Hg] [facility] Heart rate 2021-07-14 15:18:00 61 /[facility] 2021-07-14 15:18:00 [facility] 2021-07-14 15:18:00 [facility] BMI 2021-07-14 15:18:00 35.87 kg/m2 [facility] Systolic blood 2020-12-08 15:48:00 125 mm[Hg] [facility] Di[facility] blood 2020-12-08 15:48:00 76 mm[Hg] [facility] pressure Heart rate 2020-12-08 15:48:00 64 /min [facility] Body temperature 2020-12-08 15:48:00 36.61 Amina [facility] Respiratory rate 2020-12-08 15:48:00 17 /min [facility] Body height 2020-12-08 15:48:00 162.6 cm [facility] Body weight 2020-12-08 15:48:00 98.884 kg [facility] BMI 2020-12-08 15:48:00 37.42 kg/m2 [facility] Oxygen saturation in 2020-12-08 15:48:00 [...] Oral (F) 2020-08-30 11:00:00 98.4 F [facility] Respitory Rate 2020-08-30 11:00:00 [facility] Respitory Rate 2020-08-30 10:00:00 [facility] [place] Systolic (mm Hg) 2020-08-30 10:00:00 Caesar [facility] Diastolic (mm Hg) 2020-08-30 10:00:00 [facility] [place] Temperature Oral (F) 2020-08-30 00:00:00 96.9 F [facility] Temperature Oral (F) 2020-08-29 11:26:00 97.6 F [facility] Height 2020-08-29 10:30:00 162.56 cm [facility] Weight 2020-08-29 10:30:00 [facility] BMI Calculated 2020-08-29 10:30:00 Memori al [facility] Procedures Procedure Date / Time Performing Clinician Source Performed MAGNESIUM 2022-02-15 09:41:00 Sofia Garcia [facility] BASIC METABOLIC PANEL (NA, 2022-02-15 09:41:00 Radha Sofia [facility] K, CL, CO2, GLUCOSE, BUN, Medica l Branch CREATININE, CA) CBC WITH DIFF 2022-02-15 09:41:00 Sofia Garcia [facility] N-TERMINAL PRO-BNP 2022-02-15 09:41:00 Sofia Garcia [facility] BASIC METABOLIC PANEL (NA, 2022-02-13 09:40:00 Sofia Garcia [facility] K, CL, CO2, GLUCOSE, BUN, Medica l Branch CREATININE, CA) CBC WITH DIFF 2022-02-13 09:40:00 Sofia Garcia [facility] TROPONIN I 2022-02-11 23:41:00 Sofia Garcia [facility] N-TERMINAL PRO-BNP 2022-02-11 23:41:00 Sofia Garcia [facility] TRANSTHORACIC ECHO (TTE) 2022-02-11 21:26:50 [facility] CT ABDOMEN PELVIS W 2022-02-11 07:45:43 Reilly Means [facility] CONTRAST [facility] RAPID INFLUENZA A/B 2022-02-11 06:54:00 Reilly Means [facility] URINALYSIS 2022-02-11 06:45:00 Reilly Means [facility] URINE CULTURE 2022-02-11 06:45:00 Reilly Means [facility] HB ECG ROUTINE & RHYTHM 2022-02-11 05:22:08 Reilly Means [facility] BLOOD CULTURE SCREEN 2022-02-11 04:58:00 Reilly Means [facility] TROPONIN I 2022-02-11 04:58:00 Reilly Means [facility] COMP. METABOLIC PANEL 2022-02-11 04:58:00 Reilly Means [facility] ([id number]) Medical Branch CBC WITH DIFF 2022-02-11 04:58:00 Reilly Means [facility] PROTHROMBIN TIME / INR 2022-02-11 04:58:00 Reilly Means [facility] ACTIVATED PARTIAL THRMPLAS 2022-02-11 04:58:00 Reilly Means [facility] N-TERMINAL PRO-BNP 2022-02-11 04:58:00 Reilly Means [facility] LACTIC ACID WHOLE BLOOD 2022-02-11 04:58:00 Reilly Means [facility] COVID-19 (ID NOW RAPID 2022-02-11 04:58:00 Reilly Means [facility] TESTING) Medical Branch LAB ONLY COVID 2022-02-11 04:58:00 Reilly Means [facility] INTERPRETATION [facility] XR CHEST 1 VW 2022-02-11 04:27:42 Reilly Means [facility] HOSPITAL ADMISSION 2022-02-10 05:01:00 Doctor Unassigned, [facility] ECG 12-LEAD 2021-07-14 15:14:00 Elan Lira [facility] [id number] 2021-06-17 00:00:00 RASSA [facility] GASTROINTESTINAL PANEL 2020-12-08 22:21:00 Eliseo Arce [facility] XR ABDOMEN 1 VW 2020-12-08 18:06:32 Eliseo Arce spital OR [place] < 1 HOUR 2020-09-05 22:39:00 Eliseo Arce Ho spital SURGICAL PATHOLOGY REQUEST 2020-09-05 21:54:00 Eliseo Arce [facility] XR CHEST 1 VW PORTABLE 2020-09-05 19:55:00 Eliseo Arce [facility] DISCHARGE PATIENT 2020-09-05 17:27:[address] [facility] NM AN ELECTIVE 2020-09-05 16:47:23 [facility], INTRAOPERATIVE 2020-09-05 16:27:00 [facility] PARTIAL THROMBOPLASTIN 2020-09-05 15:04:00 [facility] TIME (PTT) M. PROTHROMBIN TIME WITH INR 2020-09-05 15:04:00 [facility] Plan of Care Planned Activity Planned Date Details Comments Source Future Scheduled 2022-03-04 SHINGLES VACCINES ([address] [facility] Test 14:03:57 of 2) [code = SHINGLES VACCINES (1 of 2)] Future Scheduled 2022-03-[address] [facility] Test 14:03:57 SCREENING [code = BREAST CANCER SCREENING] Future Scheduled 2022-03-04 COLONOSCOPY SCREENING [facility] Test 14:03:57 [code = COLONOSCOPY SCREENING] Future Scheduled 2022-03-04 HEPATITIS B VACCINES Met [facility] Test 14:03:57 (1 of 3 - Risk 3-dose series) [code = HEPATITIS B VACCINES (1 of 3 - Risk 3-dose series)] Future Scheduled 2022-03-04 COVID-19 VACCINE (3 - [facility] Test 14:03:57 Booster for Pfizer series) [code = COVID-19 VACCINE (3 - Booster for Pfizer series)] Future Scheduled 2022-03-04 65+ PNEUMOCOCCAL [facility] Test 14:03:57 VACCINE (4 - PPSV23 if available, else PCV20) [code = 65+ PNEUMOCOCCAL VACCINE (4 - PPSV23 if available, else PCV20)] Future Scheduled 2022-03-04 INFLUENZA VACCINE [facility] Test 14:03:57 [code = INFLUENZA VACCINE] Future Scheduled 2022-03-04 SHINGLES VACCINES ([address] [facility] Test 14:03:57 of 2) [code = SHINGLES VACCINES (1 of 2)] Future Scheduled 2022-03-[address] [facility] Test 14:03:57 SCREENING [code = BREAST CANCER SCREENING] Future Scheduled 2022-03-04 COLONOSCOPY SCREENING [facility] Test 14:03:57 [code = COLONOSCOPY SCREENING] Future Scheduled 2022-03-04 HEPATITIS B VACCINES Met [facility] Test 14:03:57 (1 of 3 - Risk 3-dose series) [code = HEPATITIS B VACCINES (1 of 3 - Risk 3-dose series)] Future Scheduled 2022-03-04 COVID-19 VACCINE (3 - [facility] Test 14:03:57 Booster for Pfizer series) [code = COVID-19 VACCINE (3 - Booster for Pfizer series)] Future Scheduled 2022-03-04 65+ [facility]CCAL [facility] 14:03:57 VACCINE (4 - PPSV23 if available, else PCV20) [code = 65+ PNEUMOCOCCAL VACCINE (4 - PPSV23 if available, else PCV20)] Future Scheduled 2022-03-04 INFLUENZA VACCINE [facility] Test 14:03:57 [code = INFLUENZA VACCINE] Future Scheduled 2022-03-04 SHINGLES VACCINES ([address] [facility] Test 14:03:57 of 2) [code = SHINGLES VACCINES (1 of 2)] Future Scheduled 2022-03-[address] [facility] Test 14:03:57 SCREENING [code = BREAST CANCER SCREENING] Future Scheduled 2022-03-04 COLONOSCOPY SCREENING [facility] Test 14:03:57 [code = COLONOSCOPY SCREENING] Future Scheduled 2022-03-04 HEPATITIS B VACCINES Met [facility] Test 14:03:57 (1 of 3 - Risk 3-dose series) [code = HEPATITIS B VACCINES (1 of 3 - Risk 3-dose series)] Future Scheduled 2022-03-04 COVID-19 VACCINE (3 - [facility] Test 14:03:57 Booster for Pfizer series) [code = COVID-19 VACCINE (3 - Booster for Pfizer series)] Future Scheduled 2022-03-04 65+ PNEUMOCOCCAL [facility] Test 14:03:57 VACCINE (4 - PPSV23 if available, else PCV20) [code = 65+ PNEUMOCOCCAL VACCINE (4 - PPSV23 if available, else PCV20)] Future Scheduled 2022-03-04 INFLUENZA VACCINE [facility] Test 14:03:57 [code = INFLUENZA VACCINE] Future Scheduled 2022-03-04 SHINGLES VACCINES ([address] [facility] Test 14:03:57 of 2) [code = SHINGLES VACCINES (1 of 2)] Future Scheduled 2022-03-[address] [facility] Test 14:03:57 SCREENING [code = BREAST CANCER SCREENING] Future Scheduled 2022-03-04 COLONOSCOPY SCREENING [facility] Test 14:03:57 [code = COLONOSCOPY SCREENING] Future Scheduled 2022-03-04 HEPATITIS B VACCINES Met [facility] Test 14:03:57 (1 of 3 - Risk 3-dose series) [code = HEPATITIS B VACCINES (1 of 3 - Risk 3-dose series)] Future Scheduled 2022-03-04 COVID-19 VACCINE (3 - Me [facility] Test 14:03:57 Booster for Pfizer series) [code = COVID-19 VACCINE (3 - Booster for Pfizer series)] Future Scheduled 2022-03-04 65+ PNEUMOCOCCAL [facility] Test 14:03:57 VACCINE (4 - PPSV23 if available, else PCV20) [code = 65+ PNEUMOCOCCAL VACCINE (4 - PPSV23 if available, else PCV20)] Future Scheduled 2022-03-04 INFLUENZA VACCINE [facility] Test 14:03:57 [code = INFLUENZA VACCINE] Future Scheduled 2022-02-11 SHINGLES VACCINES ([address] [facility] Test 13:39:12 of 2) [code = SHINGLES VACCINES (1 of 2)] Future Scheduled 2022-02-[address] [facility] Test 13:39:12 SCREENING [code = BREAST CANCER SCREENING] Future Scheduled 2022-02-11 COLONOSCOPY SCREENING [facility] Test 13:39:12 [code = COLONOSCOPY SCREENING] Future Scheduled 2022-02-11 HEPATITIS B VACCINES Met [facility] Test 13:39:12 (1 of 3 - Risk 3-dose series) [code = HEPATITIS B VACCINES (1 of 3 - Risk 3-dose series)] Future Scheduled 2022-02-11 COVID-19 VACCINE (3 - Me [facility] Test 13:39:12 Booster for Pfizer series) [code = COVID-19 VACCINE (3 - Booster for Pfizer series)] Future Scheduled 2022-02-11 65+ PNEUMOCOCCAL [facility] Test 13:39:12 VACCINE (4 - PPSV23 or PCV20) [code = 65+ PNEUMOCOCCAL VACCINE (4 - PPSV23 or PCV20)] Future Scheduled 2022-02-11 INFLUENZA VACCINE [facility] Test 13:39:12 [code = INFLUENZA VACCINE] Future Scheduled 2022-01-29 SHINGLES VACCINES ([address] [facility] Test 14:07:20 of 2) [code = SHINGLES VACCINES (1 of 2)] Future Scheduled 2022-01-[address] [facility] Test 14:07:20 SCREENING [code = BREAST CANCER SCREENING] Future Scheduled 2022-01-29 COLONOSCOPY SCREENING [facility] Test 14:07:20 [code = COLONOSCOPY SCREENING] Future Scheduled 2022-01-29 HEPATITIS B VACCINES Met [facility] Test 14:07:20 (1 of 3 - Risk 3-dose series) [code = HEPATITIS B VACCINES (1 of 3 - Risk 3-dose series)] Future Scheduled 2022-01-29 COVID-19 VACCINE (3 - [facility] Test 14:07:20 Booster for Pfizer series) [code = COVID-19 VACCINE (3 - Booster for Pfizer series)] Future Scheduled 2022-01-29 65+ PNEUMOCOCCAL [facility] Test 14:07:20 VACCINE (4 - PPSV23 or PCV20) [code = 65+ PNEUMOCOCCAL VACCINE (4 - PPSV23 or PCV20)] Future Scheduled 2022-01-29 INFLUENZA VACCINE [facility] Test 14:07:20 [code = INFLUENZA VACCINE] Future Scheduled 2022-01-29 SHINGLES VACCINES ([address] [facility] Test 14:07:20 of 2) [code = SHINGLES VACCINES (1 of 2)] Future Scheduled 2022-01-[address] [facility] Test 14:07:20 SCREENING [code = BREAST CANCER SCREENING] Future Scheduled 2022-01-29 COLONOSCOPY SCREENING [facility] Test 14:07:20 [code = COLONOSCOPY SCREENING] Future Scheduled 2022-01-29 HEPATITIS B VACCINES Met [facility] Test 14:07:20 (1 of 3 - Risk 3-dose series) [code = HEPATITIS B VACCINES (1 of 3 - Risk 3-dose series)] Future Scheduled 2022-01-29 COVID-19 VACCINE (3 - Me [facility] Test 14:07:20 Booster for Pfizer series) [code = COVID-19 VACCINE (3 - Booster for Pfizer series)] Future Scheduled 2022-01-29 65+ [facility]AL [facility]20 VACCINE (4 - PPSV23 or PCV20) [code = 65+ PNEUMOCOCCAL VACCINE (4 - PPSV23 or PCV20)] Future Scheduled 2022-01-29 INFLUENZA VACCINE [facility] Test 14:07:20 [code = INFLUENZA VACCINE] Future Scheduled 2022-01-29 SHINGLES VACCINES ([address] [facility] Test 14:07:20 of 2) [code = SHINGLES VACCINES (1 of 2)] Future Scheduled 2022-01-[address] [facility] Test 14:07:20 SCREENING [code = BREAST CANCER SCREENING] Future Scheduled 2022-01-29 COLONOSCOPY SCREENING [facility] Test 14:07:20 [code = COLONOSCOPY SCREENING] Future Scheduled 2022-01-29 HEPATITIS B VACCINES Met [facility] Test 14:07:20 (1 of 3 - Risk 3-dose series) [code = HEPATITIS B VACCINES (1 of 3 - Risk 3-dose series)] Future Scheduled 2022-01-29 COVID-19 VACCINE (3 - [facility] Test 14:07:20 Booster for Pfizer series) [code = COVID-19 VACCINE (3 - Booster for Pfizer series)] Future Scheduled 2022-01-29 65+ [facility]CCAL [facility] 14:07:20 VACCINE (4 - PPSV23 or PCV20) [code = 65+ PNEUMOCOCCAL VACCINE (4 - PPSV23 or PCV20)] Future Scheduled 2022-01-29 INFLUENZA VACCINE [facility] Test 14:07:20 [code = INFLUENZA VACCINE] Future Scheduled 2022-01-29 SHINGLES VACCINES ([address] [facility] Test 14:07:20 of 2) [code = SHINGLES VACCINES (1 of 2)] Future Scheduled 2022-01-[address] [facility] Test 14:07:20 SCREENING [code = BREAST CANCER SCREENING] Future Scheduled 2022-01-29 COLONOSCOPY SCREENING [facility] Test 14:07:20 [code = COLONOSCOPY SCREENING] Future Scheduled 2022-01-29 HEPATITIS B VACCINES Met [facility] Test 14:07:20 (1 of 3 - Risk 3-dose series) [code = HEPATITIS B VACCINES (1 of 3 - Risk 3-dose series)] Future Scheduled 2022-01-29 COVID-19 VACCINE (3 - [facility] Test 14:07:20 Booster for Pfizer series) [code = COVID-19 VACCINE (3 - Booster for Pfizer series)] Future Scheduled 2022-01-29 65+ PNEUMOCOCCAL [facility] Test 14:07:20 VACCINE (4 - PPSV23 or PCV20) [code = 65+ PNEUMOCOCCAL VACCINE (4 - PPSV23 or PCV20)] Future Scheduled 2022-01-29 INFLUENZA VACCINE [facility] Test 14:07:20 [code = INFLUENZA VACCINE] Future Scheduled 2022-01-20 SHINGLES VACCINES ([address] [facility] Test 06:12:34 of 2) [code = SHINGLES VACCINES (1 of 2)] Future Scheduled 2022-01-[address] [facility] Test 06:12:34 malignant neoplasm of cervix (procedure) [code = 087420362] Future Scheduled 2022-01-[address] [facility] Test 06:12:34 SCREENING [code = BREAST CANCER SCREENING] Future Scheduled 2022-01-20 COLONOSCOPY SCREENING [facility] Test 06:12:34 [code = COLONOSCOPY SCREENING] Future Scheduled 2022-01-20 HEPATITIS B VACCINES Met [facility] Test 06:12:34 (1 of 3 - Risk 3-dose series) [code = HEPATITIS B VACCINES (1 of 3 - Risk 3-dose series)] Future Scheduled 2022-01-20 COVID-19 VACCINE (3 - [facility] Test 06:12:34 Booster for Pfizer series) [code = COVID-19 VACCINE (3 - Booster for Pfizer series)] Future Scheduled 2022-01-20 65+ PNEUMOCOCCAL [facility] Test 06:12:34 VACCINE (4 - PPSV23 or PCV20) [code = 65+ PNEUMOCOCCAL VACCINE (4 - PPSV23 or PCV20)] Future Scheduled 2022-01-20 INFLUENZA VACCINE [facility] Test 06:12:34 [code = INFLUENZA VACCINE] Future Scheduled 2022-01-16 SHINGLES VACCINES ([address] [facility] Test 12:09:25 of 2) [code = SHINGLES VACCINES (1 of 2)] Future Scheduled 2022-01-[address] [facility] Test 12:09:25 malignant neoplasm of cervix (procedure) [code = [id number]] Future Scheduled 2022-01-[address] [facility] Test 12:09:25 SCREENING [code = BREAST CANCER SCREENING] Future Scheduled 2022-01-16 COLONOSCOPY SCREENING [facility] Test 12:09:25 [code = COLONOSCOPY SCREENING] Future Scheduled 2022-01-16 HEPATITIS B VACCINES Met [facility] Test 12:09:25 (1 of 3 - Risk 3-dose series) [code = HEPATITIS B VACCINES (1 of 3 - Risk 3-dose series)] Future Scheduled 2022-01-16 COVID-19 VACCINE (3 - [facility] Test 12:09:25 Booster for Pfizer series) [code = COVID-19 VACCINE (3 - Booster for Pfizer series)] Future Scheduled 2022-01-16 65+ [facility]AL [facility] 12:09:25 VACCINE (4 - PPSV23 or PCV20) [code = 65+ PNEUMOCOCCAL VACCINE (4 - PPSV23 or PCV20)] Future Scheduled 2022-01-16 INFLUENZA VACCINE [facility] Test 12:09:25 [code = INFLUENZA VACCINE] Future Scheduled 2022-01-14 SHINGLES VACCINES ([address] [facility] Test 04:11:46 of 2) [code = SHINGLES VACCINES (1 of 2)] Future Scheduled 2022-01-[address] [facility] Test 04:11:46 malignant neoplasm of cervix (procedure) [code = [id number]] Future Scheduled 2022-01-[address] [facility] Test 04:11:46 SCREENING [code = BREAST CANCER SCREENING] Future Scheduled 2022-01-14 COLONOSCOPY SCREENING [facility] Test 04:11:46 [code = COLONOSCOPY SCREENING] Future Scheduled 2022-01-14 HEPATITIS B VACCINES Met [facility] Test 04:11:46 (1 of 3 - Risk 3-dose series) [code = HEPATITIS B VACCINES (1 of 3 - Risk 3-dose series)] Future Scheduled 2022-01-14 COVID-19 VACCINE (3 - Me [facility] Test 04:11:46 Booster for Pfizer series) [code = COVID-19 VACCINE (3 - Booster for Pfizer series)] Future Scheduled 2022-01-14 65+ PNEUMOCOCCAL [facility] Test 04:11:46 VACCINE (4 - PPSV23 or PCV20) [code = 65+ PNEUMOCOCCAL VACCINE (4 - PPSV23 or PCV20)] Future Scheduled 2022-01-14 INFLUENZA VACCINE Method [facility] Test 04:11:46 [code = INFLUENZA VACCINE] Future Scheduled 2021-08-[address] [facility] Test 13:02:23 malignant neoplasm of cervix (procedure) [code = [id number]] Future Scheduled 2021-08-[address] [facility] Test 13:02:23 SCREENING [code = BREAST CANCER SCREENING] Future Scheduled 2021-08-26 COLONOSCOPY SCREENING [facility] Test 13:02:23 [code = COLONOSCOPY SCREENING] Future Scheduled 2021-08-[address] [facility] Test 13:02:23 malignant neoplasm of lung (procedure) [code = [id number]] Future Scheduled 2021-08-26 SHINGLES VACCINES (#1) M [facility] Test 13:02:23 [code = SHINGLES VACCINES (#1)] Future Scheduled 2021-08-26 COVID-19 VACCINE (3 - [facility] Test 13:02:23 Pfizer risk 4-dose series) [code = COVID-19 VACCINE (3 - Pfizer risk 4-dose series)] Future Scheduled 2021-08-26 65+ PNEUMOCOCCAL [facility] Test 13:02:23 VACCINE (4 of 4 - PPSV23) [code = 65+ PNEUMOCOCCAL VACCINE (4 of 4 - PPSV23)] Future Scheduled 2021-08-26 INFLUENZA VACCINE [facility] Test 13:02:23 [code = INFLUENZA VACCINE] Encounters Start End Encounter Admission Attending Care Care Encounter Source Date/Time Date/Time Type Type Clinicians Facility Department ID 2022-02-18 Outpatient [facility] [id number] [place] 14:30:[address] [place] [address] 2021-07-14 Outpatient JENNY [facility] [id number] [place] 09:33:51 [facility] 2021-06-02 Outpatient HEMATPOUR, [facility] [id number] [place] 13:58:59 [facility] 2021-04-28 Outpatient [facility]EMATPOUR, [facility] [id number] [place] 11:21:22 [place] 2021-03-20 Emergency [facility] [id number] Univers 16:07[facility] 2020-[facility]12 Out[facility] [id number] [place] 08:16[facility] 2020-10[facility] [id number] [place] 09:44:[facility] 2020-09-30 Outpatient [facility], [facility] [id number] [place] 13:16[facility]03 [facility] 2022-03-05 2022-03-05 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 [facility] UNIVERSIT [id number] Univers 13:45:00 14:00:00 Visit Santiago Cardenas [facility] [id number] ity of [id number] [id number] [facility] [address] 2022-03-05 2022-03-05 Outpatient R [facility] [id number] Univers 13:45:00 13:45:00 [facility] 2022-02-26 2022-02-26 Outpatient R [facility] [id number] Univers 08:30:00 08:30:00 [facility] 2022-02-26 2022-02-26 Outpatient R [facility] [id number] Univers 08:30:00 08:30:00 [facility] 2022-02-17 2022-02-17 Transition ADELAIDE [facility] [id number] Univers 00:00:00 00:00:00 of Care Isaias [place] [id number] [id number] [id number] [facility] [address] 2022-02-10 2022-02-16 Inpatient X FRANK NCCAMDEN FAVIO [id number] Univers 22:59:00 19:27:00 TOMY ity of [facility] 2022-02-10 2022-02-16 Hospital Reilly Means [facility] [id number] Univers 22:59:00 19:27:00 Encounter Ofe Shields [facility] [id number] ity of Tomy Marie ELEN [id number] [facility] [id number] [place] [facility] [address] ([facility]) 2022-02-11 2022-02-11 Telephone [facility], [facility] 1.2.840.114 [id number] Univers 00:00:00 00:00:00 [facility] 350.1.13.10 i ty [place] [id number] [address] 2022-01-30 2022-01-30 Telephone [facility], [facility] 1.2.840.114 96 [id number] Univers 00:00:00 00:00:00 [facility] 350.1.13.10 i ty [place] [id number] [address] 2022-01-06 2022-01-06 Orders Doctor FERMIN 1.2.840.114 [id number] Univers 00:00:00 00:00:00 Only Unassigned, JACKELINE 350.1.13.10 ity of [place] [facility] 4.2.7.2.686 Yomi as [id number] [address] 2021-12-25 2021-12-25 Orders Doctor FERMIN 1.2.840.114 [id number] Univers 00:00:00 00:00:00 Only Unassigned, JACKELINE 350.1.13.10 ity of [place] [facility] 4.2.7.2.686 Yomi as [id number] [address] 2021-12-12 2021-12-13 Emergency X Bill COLES [facility] ERT [id number] Univers 23:53:00 01:52:00 ity of [facility] 2021-12-12 2021-12-13 Emergency Bill Coles [facility] 1.2.840.114 95 [id number] Univers 23:53:00 01:52:00 Kiersten BULLOCK 350.1.13.10 i ty [place] [id number] [facility] [address] 2021-11-20 2021-11-20 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 [facility] UNIVERSIT 1.2.840.114 9 [id number] Univers 09:45:00 10:00:00 Visit [facility] 350.1.13.10 ity of [facility] 4.2.7.2.[place] [phone] [facility] [address] 2021-11-20 2021-11-20 Office [facility] 1.2.433.846 9449 9084 Univers 08:30:00 09:00:00 Visit [facility] 350.1.13.10 i ty of [facility] 4.2.[place].2.[place] [id number] [facility] 089 [place] 2021-11-20 2021-11-20 Outpatient R [facility] [id number] Univers 08:30:00 08:30:00 [facility] 2021-11-20 2021-11-20 Outpatient R [facility] [id number] Univers 08:30:00 08:30:00 [facility] 2021-11-20 2021-11-20 Outpatient R [facility] [id number] 300 Univers 08:30:00 08:30:00 [facility] 2021-11-20 2021-11-20 Outpatient R [facility] [id number] Univers 08:30:00 08:30:00 [facility] 2021-10-24 2021-10-24 Emergency X WALKER [facility] ERT [id number] Univers 16:27:00 22:26:00 [facility] 2021-10-24 2021-10-24 Emergency X WALKER [facility] ERT [id number] Univers 16:27:00 22:26[facility]00 [facility] 2021-10-24 2021-10-24 Emergency Reilly Means [facility] 1.2.840. 114 [id number] Univers 16:27:00 22:26:00 Charity Mcallister 350.1.13.10 [facility] 4.2.7.2.686 [facility] [id number] [address] 2021-10-23 2021-10-[address] [facility] ERT [id number] Univers 20:22:00 02:57:00 [facility] 2021-10-23 2021-10-24 Emergency [facility] 1.2.270.571 1379 [id number] Univers 20:22:00 02:57:00 Charity Bach [place] 350.1.13.10 ity of [place] 4.2.7.2.686 [facility] [id number] [address] 2021-09-07 2021-09-07 Outpatient R SELF, [facility] [id number] Univers 08:00:00 08:00:00 GADIEL raheemcharlie rodas [facility] 2021-09-07 2021-09-07 Outpatient R SELF, [facility] [id number] Univers 08:00:00 08:00:00 GADIEL vogel [facility] 2021-08-21 2021-08-21 Outpatient R EAST, [facility] [id number] Univers 10:45:00 10:45:00 SANTIAGO barbosa [facility] 2021-08-21 2021-08-21 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 Santiago Cardenas 1.2.840.1 [id number] Univers 10:45:00 10:45:00 Visit [facility] 06201.1.1 ity of 3.104.2.7 [place] .3.181833 Medica l .8 [place] 2021-08-21 2021-08-21 Office Qi Cardenas2.840.7 [id number] 516 Univers 08:30:00 09:00:00 Visit Santiago 51909.1.1 ity of 3.104.2.7 [place] .3.934516 Medica l .8 [place] 2021-08-21 2021-08-21 Office Ronald, [facility] 1.2.030.206 4894 8516 Univers 08:30:00 09:00:00 Visit Santiago [facility] 350.1.13.10 i ty of CLINICS 4.2.7.2.686 Richi bach [id number] [facility] 089 [place] 2021-08-21 2021-08-21 Outpatient [facility] [id number] Univers 08:30:00 08:30:[address] [facility] 2021-08-21 2021-08-21 Travel 1.2.840.1 1.2.638.926 9011 3865 Univers 00:00:00 00:00:00 68312.1.1 350.1.13.10 ity of 3.104.2.7 4.[place].7.3.698 [place] .3.908030 084.8 Medica l .8 [place] 2021-08-14 2021-08-14 Telephone East, 1.2.840.1 [id number] Univers 00:00:00 00:00:00 Santiago 82340.1.1 ity of 3.104.2.7 [place] .3.579609 Medica l .8 [place] 2021-08-13 2021-08-13 Telephone East, 1.2.840.0 [id number] Univers 00:00:00 00:00:00 Santiago 13202.1.1 ity of 3.104.2.7 [place] .3.578542 Medica l .8 [place] 2021-08-11 2021-08-11 Outpatient [facility] [id number] Univers 08:00:00 08:00:[address] [facility] 2021-08-05 2021-08-05 Inpatient WINTER Leal OUTD [id number] [facility] 05:24:00 05:24:00 Mike 31 [facility] 2021-07-20 2021-07-20 Outpatient [facility] [id number] Univers 10:00:00 10:00:[address] [facility] 2021-07-14 2021-07-14 Office KIMBERLEY Lira 6400 1.2.840.114 13 [id number] [place] 08:45:00 09:34:[address] 350.1.13.58 Health 9.2.7.2.686 [id number] 1 2021-07-09 2021-07-09 Telephone Maryjanepoliz, UTP 6400 1.2.840.114 [id number] [place] 00:00:00 00:00:[address] 350.1.13.58 Health 9.2.7.2.686 [id number] 1 2021-07-09 2021-07-09 Telephone Maryjanepoliz, UTP 6400 1.2.840.114 [id number] [place] 00:00:00 00:00:[address] 350.1.13.58 Health 9.2.7.2.686 [id number] 1 2021-07-03 2021-07-03 Outpatient R EAST, [facility] [id number] Univers 08:00:00 08:00:00 [facility] 2021-06-17 2021-06-17 Inpatient Ashely, [facility] INTE.02 [id number] [facility] 10:56:00 14:36:[address] [place] [address] 2021-06-15 2021-06-15 Outpatient R SELF, [facility] [id number] Univers 10:15:00 11:07:21 GADIEL vogel [facility] 2021-06-15 2021-06-15 Outpatient R SELF, [facility] [id number] Univers 10:15:00 10:15:00 GADIEL vogel [facility] 2021-06-15 2021-06-15 Outpatient R SELF, [facility] [id number] 319 Univers 10:15:00 10:15:00 GADIEL vogel [facility] 2021-06-15 2021-06-15 Orders Doctor 1.2.840.3 [id number] Univers 00:00:00 00:00:00 Only Unassigned, 89398.1.1 ity of [place] 3.104.2.7 [place] .3.296777 Medica l .8 Branch 2021-06-15 2021-06-15 Travel 1.2.840.1 1.2.808.566 3297 7719 Univers 00:00:00 00:00:00 86650.1.1 350.1.13.10 ity of 3.104.2.7 4.2.7.3.698 [place] .3.712300 084.8 Medica l .8 [place] 2021-06-11 2021-06-11 Refill [facility], UNIVERSIT 1.2.562.276 4963 9185 Univers 00:00:00 00:00:00 [facility] 350.1.13.10 i ty of [place] [id number] [address] 2021-06-11 2021-06-11 Refill [facility], 1.2.840.9 [id number] 185 Univers 00:00:00 00:00:00 Santiago 00038.1.1 ity of 3.104.2.7 [place] .3.915405 Medica l .8 [place] 2021-06-05 2021-06-05 Outpatient R [facility] [id number] Univers 09:00:00 09:00:00 SANTIAGO ity of [facility] 2021-06-02 2021-06-02 Telephone [facility], [facility] 1.2.840.114 [id number] Univers 00:00:00 00:00:00 [facility] 350.1.13.10 i ty of [place] [id number] [address] 2021-06-02 2021-06-02 Telephone East, 1.2.840.1 [id number] 903 [id number] Univers 00:00:00 00:00:00 Santiago 38836.1.1 ity of 3.104.2.7 [place] .3.051077 Medica l .8 [place] 2021-05-29 2021-05-29 Telephone East, 1.2.840.3 [id number] 902 [id number] Univers 00:00:00 00:00:00 Santiago 89748.1.1 ity of 3.104.2.7 [place] .3.618235 Medica l .8 Branch 2021-05-29 2021-05-29 Telephone Ronald, 1.2.840.4 [id number] 902 04459 Univers 00:00:00 00:00:00 Santiago 12040.1.1 ity of 3.104.2.7 [place] .3.778016 Medica l .8 [place] 2021-05-25 2021-05-25 Outpatient R RODO, [facility] [id number] Univers 08:00:00 08:00:00 GADIEL barbosa o f [facility] 2021-04-29 2021-04-29 Outpatient R LALA, [facility] [id number] Univers 08:00:00 08:00:00 NIKOLAI barbosa [facility] 2021-04-28 2021-04-28 Telephone [place], UTP 6400 1.2.840.114 [id number] [place] 00:00:00 00:00:[address] 350.1.13.58 Health 9.2.7.2.686 [id number] 1 2021-04-28 2021-04-28 Telephone Jailyn, 1.2.840.5 [id number] 21 [id number] Methodi 00:00:00 00:00:[address] 3.430.2.7 Hospit a .3.869543 l .8 2021-04-28 2021-04-28 Telephone Jailyn, 1.2.840.8 [id number] 21 [id number] Methodi 00:00:00 00:00:[address] 3.430.2.7 Hospit a .3.093155 l .8 2021-03-31 2021-03-31 Orders Carol Ann, 1.2.840.1 [id number] 21 [id number] Methodi 00:00:00 00:00:00 Only Sarai Lieberman 37384.1.1 979 s t 3.430.2.7 Hospit a .3.664788 l .8 2021-03-31 2021-03-31 Orders Carol Ann, 1.2.840.1 [id number] 21 [id number] Methodi 00:00:00 00:00:00 Only Sarai Lieberman 86171.1.1 979 s t 3.430.2.7 Hospit a .3.382124 l .8 2021-03-30 2021-03-30 Outpatient R RODO, [facility] [id number] Univers 08:45:00 08:45:00 GADIEL rodas [facility] 2021-03-24 2021-03-24 Telephone Jailyn, 1.2.840.8 [id number] 21 [id number] Methodi 00:00:00 00:00:[address] 3.430.2.7 Hospit a .3.253912 l .8 2021-03-24 2021-03-24 Telephone Jailyn, 1.2.840.4 [id number] 21 [id number] Methodi 00:00:00 00:00:[address] 3.430.2.7 Hospit a .3.381894 l .8 2021-02-13 2021-02-13 Telephone Ronald 1.2.840.4 [id number] 876 60193 Univers 00:00:00 00:00:00 Santiago 63486.1.1 ity of 3.104.2.7 [place] .3.684418 Medica l .8 [place] 2021-01-28 2021-01-28 Outpatient R LALA, [facility] [id number] Univers 08:45:00 09:37:00 NIKOLAI itcharlie of [facility] 2021-01-28 2021-01-28 Travel 1.2.840.1 1.2.067.406 4263 9777 Univers 00:00:00 00:00:00 21590.1.1 350.1.13.10 ity of 3.104.2.7 4.[place].7.3.698 [place] .3.544364 084.8 Medica l .8 [place] 2021-01-19 2021-01-19 Telephone Prabhu 1.2.840.1 [id number] 2100 [id number] Methodi 00:00:00 00:00:[address] 3.430.2.7 Hospit a .3.680654 l .8 2021-01-04 2021-01-04 Dmitry Bass, 1.2.840.3 [id number] 35102 696 Univers 00:00:00 00:00:00 (Out) Dagoberto H 38252.1.1 ity of 3.104.2.7 [place] .3.594833 Medica l .8 Branch 2021-01-04 2021-01-04 Dmitry Bass, 1.2.840.9 [id number] 42100 696 Univers 00:00:00 00:00:00 (Out) Dagoberto H 36216.1.1 ity of 3.104.2.7 [place] .3.097002 Medica l .8 Branch 2021-01-03 2021-01-03 Dmitry Bass, 1.2.840.2 [id number] 20314 790 Univers 00:00:00 00:00:00 (Out) Dagoberto H 67429.1.1 ity of 3.104.2.7 [place] .3.598848 Medica l .8 Branch 2021-01-03 2021-01-03 Dmitry Bass, 1.2.840.5 [id number] 36674 790 Univers 00:00:00 00:00:00 (Out) Dagoberto H 14377.1.1 ity of 3.104.2.7 [place] .3.012361 Medica l .8 Branch 2021-01-02 2021-01-02 Outpatient R [facility] [id number] 786 Univers 13:40:00 13:40:00 ity of [facility] 2021-01-02 2021-01-02 Laboratory Cuba Franks 1.2.840.4 [id number] Univers 12:14:13 12:57:34 Only Lab, [facility] 42331.1.1 ity of 3.104.2.7 [place] .3.213061 Medica l .8 Branch 2021-01-02 2021-01-02 Laboratory Cuba Franks 1.2.840.4 [id number] 3580 [id number] Univers 12:14:13 12:57:34 Only Lab, Star Drew I 39401.1.1 ity of 3.104.2.7 [place] .3.028548 Medica l .8 [place] 2021-01-02 2021-01-02 Travel 1.2.840.1 1.2.666.805 4665 2306 Univers 00:00:00 00:00:00 76338.1.1 350.1.13.10 ity of 3.104.2.7 4.2.7.3.698 [place] .3.530352 084.8 Medica l .8 [place] 2021-01-02 2021-01-02 Letter Doctor 1.2.840.4 [id number] 87215 948 Univers 00:00:00 00:00:00 (Out) Unassigned, 47049.1.1 ity of [place] 3.104.2.7 [place] .3.752387 Medica l .8 [place] 2021-01-02 2021-01-02 Letter Doctor 1.2.840.6 [id number] 54151 946 Univers 00:00:00 00:00:00 (Out) Unassigned, 40815.1.1 ity of [place] 3.104.2.7 [place] .3.878661 Medica l .8 [place] 2021-01-02 2021-01-02 Travel 1.2.840.1 1.2.800.073 3713 2306 Univers 00:00:00 00:00:00 05666.1.1 350.1.13.10 ity of 3.104.2.7 4.2.7.3.698 [place] .3.551582 084.8 Medica l .8 [place] 2021-01-02 2021-01-02 Letter Doctor 1.2.840.3 [id number] 95788 948 Univers 00:00:00 00:00:00 (Out) Unassigned, 33733.1.1 ity of [place] 3.104.2.7 [place] .3.237928 Medica l .8 [place] 2021-01-02 2021-01-02 Letter Doctor 1.2.840.8 [id number] 06571 946 Univers 00:00:00 00:00:00 (Out) Unassigned, 66931.1.1 ity of [place] 3.104.2.7 [place] .3.856696 Medica l .8 [place] 2020-12-22 2020-12-22 Telephone Beltran, 1.2.840.9 [id number] 862 15437 Univers 00:00:00 00:00:00 Eligionda R 28127.1.1 i ty of 3.104.2.7 [place] .3.358810 Medica l .8 [place] 2020-12-22 2020-12-22 Telephone Beltran, 1.2.840.7 [id number] 862 57455 Univers 00:00:00 00:00:00 Eligionda R 08274.1.1 i ty of 3.104.2.7 [place] .3.935892 Medica l .8 [place] 2020-12-12 2020-12-12 Office Hematpour, UTP 6400 1.2.840.114 12 [id number] [place] 07:42:02 08:18:[address] 350.1.13.58 Health 9.2.7.2.686 336.1876560 1 2020-12-12 2020-12-12 Office Hematpour, UTP 6400 1.2.840.114 12 [id number] 07:42:02 08:18:50 [facility] [facility] 350.1.13.58 9.2.7.2.686 [id number] 1 2020-12-09 2020-12-09 Telephone [facility], 1.2.840.1 [id number] Methodi 00:00:00 00:00:00 Sarai Lieberman 32420.1.1 316 s t 3.430.2.7 Hospit a .3.188936 l .8 2020-12-08 2020-12-08 [facility], 1.2.840.1 [id number] 2099 955746 Methodi 12:35:54 23:59:00 Encounter Ray 91419.1.[address] 3.430.2.7 Hospit a .3.362229 l .8 2020-12-08 2020-12-08 Lab Jailyn, 1.2.840.1 [id number] 29820 69881 Methodi 17:25:00 17:30:[address] 3.430.2.7 Hospit a .3.056740 l .8 2020-12-08 2020-12-08 Office Jailyn, 1.2.840.1 [id number] 80456 17302 Methodi 10:30:00 11:39:56 Visit Ray [address]226.1.[address] 3.430.2.7 Hospit a .3.703274 l .8 2020-12-08 2020-12-08 Travel 1.2.840.1 1.2.165.288 0434 697061 Methodi 00:00:00 00:00:[address] 3.430.2.7 0.2.7.3.698 spita .3.602665 084.8 l .8 2020-12-02 2020-12-02 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 Santiago Cardenas 1.2.840.1 [id number] 316 [id number] Univers 10:20:06 10:36:19 Visit [facility] 68908.1.1 ity of 3.104.2.7 [place] .3.536702 Medica l .8 [place] 2020-12-02 2020-12-02 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 Santiago Cardenas 1.2.840.1 [id number] 316 [id number] Univers 10:20:06 10:36:19 Visit [facility] 70554.1.1 ity of 3.104.2.7 [place] .3.463220 Medica l .8 [place] 2020-12-02 2020-12-02 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 [facility] UNIVERSIT 1.2.840.114 8 [id number] 10:20:06 10:36:19 Visit [facility] 350.1.13.10 CLINICS 4.2.7.2.686 248.3867711 [facility] 2020-12-02 2020-12-02 Office Ronald, 1.2.840.4 [id number] 16733 528 Univers 08:31:37 09:01:37 Visit Santiago 88150.1.1 ity of 3.104.2.7 [place] .3.309314 Medica l .8 [place] 2020-12-02 2020-12-02 [facility] [id number] Univers 09:00:00 09:00:00 SANTIAGO ity of [facility] 2020-11-25 2020-11-25 Office Devin, 1.2.840.1 [id number] 865 Univers 11:06:30 11:58:14 Visit Robbi Hairston 06345.1.1 i ty of 3.104.2.7 [place] .3.394354 Medica l .8 [place] 2020-11-25 2020-11-25 Office Devin 1.2.840.8 [id number] 70496 865 Univers 11:06:30 11:58:14 Visit Robbi Hairston 78737.1.1 i ty of 3.104.2.7 [place] .3.022679 Medica l .8 [place] 2020-11-25 2020-11-25 [facility] 1.2.840.114 [id number] 11:06:30 11:58:14 Visit Amarilisjolie Hairston FILM CASTING OPERATOR 350.1.13.10 [facility] 4.2.7.2.686 MATERNAL [id number] & CHILD [address] [place] [address] 2020-11-25 2020-11-25 Outpatient R [facility] [id number] Univers 11:00:00 11:00:00 ity of [facility] 2020-11-25 2020-11-25 Telephone Devin 1.2.840.9 [id number] 855 23485 Univers 00:00:00 00:00:00 Devinaleshia Hairston 82684.1.1 i ty of 3.104.2.7 [place] .3.892305 Medica l .8 [place] 2020-11-25 2020-11-25 [facility] 1.2.840.2 [id number] 30739 592 Univers 00:00:00 00:00:00 Santiago 53880.1.1 ity of 3.104.2.7 [place] .3.043043 Medica l .8 Branch 2020-11-25 2020-11-25 Travel 1.2.840.1 1.2.874.138 9901 0247 Univers 00:00:00 00:00:00 80661.1.1 350.1.13.10 ity of 3.104.2.7 4.2.7.3.698 [place] .3.879490 084.8 Medica l .8 [place] 2020-11-25 2020-11-25 Orders Doctor 1.2.840.1 [id number] 17110 064 Univers 00:00:00 00:00:00 Only Unassigned, 21713.1.1 ity of [place] 3.104.2.7 [place] .3.116431 Medica l .8 [place] 2020-11-25 2020-11-25 Telephone Beltran, 1.2.840.2 [id number] 855 11754 Univers 00:00:00 00:00:00 Roshunda R 62005.1.1 i ty of 3.104.2.7 [place] .3.117573 Medica l .8 [place] 2020-11-25 2020-11-25 [facility], 1.2.840.7 [id number] 70528 592 Univers 00:00:00 00:00:00 Santiago 36353.1.1 ity of 3.104.2.7 [place] .3.402636 Medica l .8 Branch 2020-11-25 2020-11-25 Travel 1.2.840.1 1.2.066.471 3346 0247 Univers 00:00:00 00:00:00 37943.1.1 350.1.13.10 ity of 3.104.2.7 4.2.7.3.698 [place] .3.081255 084.8 Medica l .8 Branch 2020-11-25 2020-11-25 Orders Doctor 1.2.840.9 [id number] 54778 064 Univers 00:00:00 00:00:00 Only Unassigned, 74442.1.1 ity of [place] 3.104.2.7 [place] .3.008236 Medica l [address] 2020-11-25 2020-11-25 [facility] 1.2.555.119 8064 4592 00:00:00 00:00:00 [facility] 350.1.13.10 [facility] 4.2.7.2.686 004.5114940 089 2020-11-25 2020-11-25 Telephone [facility] 1.2.624.303 2128 0821 00:00:00 00:00:00 Robbi Hairston FILM CASTING OPERATOR 350.1.13.10 [facility] 4.2.7.2.686 MATERNAL [id number] & CHILD [address] [place] [address] 2020-11-14 2020-11-14 Abstract Clark, 1.2.840.1 [id number] 89967 02591 Methodi 00:00:00 00:00:[address] 3.430.2.7 Hospit a .3.393980 l .8 2020-11-14 2020-11-14 Telephone Clark 1.2.840.1 [id number] 2100 907839 Methodi 00:00:00 00:00:[address] 3.430.2.7 Hospit a .3.726732 l .8 2020-11-12 2020-11-12 Outpatient [facility] [id number] 323 Univers 08:30:00 08:30:00 SANTIAGO familia of [facility] 2020-11-07 2020-11-07 Telephone Agustina Ortiz 6400 1.2.840.11 4 [id number] [place] 00:00:00 00:00:[address] 350.1.13.58 Health 9.2.7.2.686 [id number] 1 2020-11-07 2020-11-07 Telephone KIMBERLEY Ortiz 6400 1.2.840.114 124 [id number] 00:00:00 00:00:[address] 350.1.13.58 9.2.7.2.686 [id number] 1 2020-10-31 2020-10-31 Office Ap UTP 6400 1.2.840.114 12 [id number] [place] 07:54:00 09:45:[address] 350.1.13.58 Health 9.2.7.2.686 150.2063106 1 2020-10-30 2020-10-30 Abstract Rody Maguire UTP 6400 1.2.840.1 14 [id number] [place] 00:00:00 00:00:[address] 350.1.13.58 Health 9.2.7.2.686 [id number] 1 2020-10-29 2020-10-29 Refill [place], 1.2.840.8 [id number] 97748 400 Univers 00:00:00 00:00:00 Santiago 02089.1.1 ity of 3.104.2.7 [place] .3.243871 Medica l .8 [place] 2020-10-29 2020-10-29 Refill [place], 1.2.840.2 [id number] 13701 400 Univers 00:00:00 00:00:00 Santiago 99870.1.1 ity of 3.104.2.7 [place] .3.160899 Medica l .8 [place] 2020-10-27 2020-10-27 Telephone Jailyn, 1.2.840.8 [id number] 21 [id number] Methodi 00:00:00 00:00:[address] 3.430.2.7 Hospit a .3.727997 l .8 2020-10-24 2020-10-24 Telephone Clark, 1.2.840.1 [id number] 2100 [id number] Methodi 00:00:00 00:00:[address] 3.430.2.7 Hospit a .3.097974 l .8 2020-10-22 2020-10-22 Outpatient R SELF, [facility] [id number] Univers 13:00:00 13:00:00 GADIEL rodas [facility] 2020-10-22 2020-10-22 Travel 1.2.840.1 1.2.017.420 8753 3839 Univers 00:00:00 00:00:00 33443.1.1 350.1.13.10 ity of 3.104.2.7 4[place].3.698 [place] .3.404689 084.8 Medica l .8 [place] 2020-10-22 2020-10-22 Travel 1.2.840.1 1.2.509.329 1781 3839 [facility] 00:00:00 00:00:00 16844.1.1 350.1.13.10 ity of 3.104.2.[place].3.698 [place] .3.688739 084.8 Medica l .8 [place] 2020-10-13 2020-10-13 Outpatient R SELF, [facility] [id number] Univers 08:45:00 08:45:00 GADIEL rodas [facility] 2020-10-06 2020-10-12 Telemedici Jailyn, 1.2.840.1 [id number] 21 [id number] Methodi 15:30:00 00:08:46 ne Ray [address]605.1.[address] 3.430.2.7 Hospit a .3.321852 l .8 2020-09-30 2020-09-30 Telephone Cadea, 1.2.840.2 [id number] 21 [id number] Methodi 00:00:00 00:00:[address] 3.430.2.7 Hospit a .3.718261 l .8 2020-09-21 2020-09-21 Travel 1.2.840.1 1.2.392.672 4705 560028 Methodi 00:00:00 00:00:[address] 3.430.2.7 0.2.7.3.698 Ho spita .3.869488 084.8 l .8 2020-09-06 2020-09-06 [facility] 1.2.840.1 [id number] 21000 [id number] Methodi 17:42:30 23:59:[address] 3.430.2.7 Hospit a .3.637167 l .8 2020-09-06 2020-09-06 [facility], 1.2.840.1 [id number] 2100 [id number] Methodi 16:50:00 17:41:00 Encounter Ray [address]57.1.[address] 3.430.2.7 Hospit a .3.574078 l .8 2020-09-05 2020-09-05 [facility], 1.2.840.1 [id number] 2100 [id number] Methodi 09:17:00 19:45:00 Encounter Ray [address].1.[address] 3.430.2.7 Hospit a .3.005020 l .8 2020-09-05 2020-09-05 Surgery [facility], 1.2.840.1 [id number] 21000 24846 Methodi 11:30:00 13:15:[address] 3.430.2.7 Hospit a .3.975560 l .8 2020-09-05 2020-09-05 Anesthesia [facility], 1.2.840.1 [id number] Methodi 11:27:00 12:20:00 Event Saraswathi 23176.1.1 243 s t V. 3.430.2.7 Hospit a .3.781347 l .8 2020-09-05 2020-09-05 Travel 1.2.840.1 1.2.084.153 7660 118310 Methodi 00:00:00 00:00:[address] 3.430.2.7 0.2.7.3.698 Ho spita .3.347667 084.8 l .8 2020-09-04 2020-09-04 Telephone [place], 1.2.840.1 [id number] Methodi 00:00:00 00:00:00 Sarai Lieberman 43496.1.1 762 s t 3.430.2.7 Hospit a .3.741808 l .8 2020-09-02 2020-09-02 Telephone [place], 1.2.840.0 [id number] Methodi 00:00:00 00:00:00 Sarai Lieberman 08174.1.1 344 s t 3.430.2.7 Hospit a .3.126737 l .8 2020-08-29 2020-08-30 Bedded [facility] [id number] [facility] 10:20:00 14:10:00 Outpatient r [place] 00 [facility] 2020-08-29 2020-08-30 Outpatient [place], [facility] CAR 7500 [facility] 05:20:00 09:10:00 [place] 2020-08-06 2020-08-06 [place], 1.2.840.2 [id number] Univers 08:03:23 09:17:49 Visit [place] 16166.1.1 ity of 3.104.2.7 [place] .3.887773 Medica l .8 [place] 2020-08-06 2020-08-06 [facility] [id number] Univers 08:30:00 08:30:00 SANTIAGO barbosa of [facility] 2020-07-14 2020-07-14 Outpatient R [facility], [facility] [id number] Univers 09:30:00 09:30:00 GADIEL barbosa o f [facility] 2020-07-14 2020-07-14 Travel 1.2.840.1 1.2.322.482 0901 2575 Univers 00:00:00 00:00:00 77893.1.1 350.1.13.10 ity of 3.104.2.7 4[place].3.698 [place] .3.216381 084.8 Medica l .8 [place] 2020-07-14 2020-07-14 Orders Doctor 1.2.840.9 [id number] Univers 00:00:00 00:00:00 Only Unassigned, 84942.1.1 ity of [place] 3.104.2.7 [place] .3.574177 [facility] .[facility] [place] 2020-06-16 2020-06-16 Outpatient R [facility] [id number] Univers 08:00:00 08:00:00 GADIEL ity o f [facility] 2020-06-06 2020-06-06 Telephone East, 1.2.840.1 [id number] Univers 00:00:00 00:00:00 Santiago 11531.1.1 ity of 3.104.2.7 [place] .3.299258 [facility] .[facility] [place] 2020-06-04 2020-06-04 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 Santiago Cardenas 1.2.840.1 [id number] Univers 09:31:58 09:40:12 Visit [facility]-Lab 86579.1.1 ity of 3.104.2.7 [place] .3.283888 Medica [facility] .8 [place] 2020-06-04 2020-06-04 Office East, FRANCO[place] 1.2.772.717 [id number] Univers 08:13:41 09:28:25 Visit Santiago [facility] 350.1.13.10 i ty of [place] 215.5074954 [facility] 089 [place] 2020-06-04 2020-06-04 Outpatient R [facility] [id number] Univers 08:30:00 08:30:00 SANTIAGO ity of [facility] 2020-06-04 2020-06-04 Orders Doctor 1.2.840.5 [id number] Univers 00:00:00 00:00:00 Only Unassigned, 66256.1.1 ity of [place] 3.104.2.7 [place] .3.248754 [facility] .8 [place] 2020-05-19 2020-05-19 Telephone East, 1.2.840.7 [id number] Univers 00:00:00 00:00:00 Santiago 61136.1.1 ity of 3.104.2.7 [place] .3.228870 Medica [facility] .8 [place] 2020-04-24 2020-04-24 Telephone East, 1.2.840.9 [id number] Univers 00:00:00 00:00:00 Santiago 29031.1.1 ity of 3.104.2.7 [place] .3.571054 Medica l .8 [place] 2020-04-14 2020-04-14 Outpatient R EAST, [facility] [id number] Univers 09:00:00 09:00:00 SANTIAGO ity of [facility] 2020-04-14 2020-04-14 Telephone East, 1.2.840.3 [id number] Univers 00:00:00 00:00:00 Santiago 85194.1.1 ity of 3.104.2.7 [place] .3.694211 [facility] .8 [place] 2020-03-31 2020-03-31 Outpatient R EAST, [facility] [id number] Univers 08:30:00 08:30:00 SANTIAGO ity of [facility] 2020-03-03 2020-03-03 Outpatient R SELF, [facility] [id number] Univers 08:00:00 08:00:00 GADIEL barbosa o f [facility] 2020-03-03 2020-03-03 Outpatient R SELF, [facility] [id number] Univers 08:00:00 08:00:00 GADIEL barbosa o f [facility] 2020-03-03 2020-03-03 Travel 1.2.840.1 1.2.391.844 [id number] Univers 00:00:00 00:00:00 95629.1.1 350.1.13.10 ity of 3.104.2.7 [place].3.698 [place] 084.8 Med[place] .8 [place] 2020-02-06 2020-02-06 Telephone East, 1.2.840.2 [id number] Univers 00:00:00 00:00:00 Santiago 93917.1.1 ity of 3.104.2.7 [place] .3.566970 [facility] .8 [place] 2020-01-26 2020-01-26 Emergency Caridad, 1.2.840.6 [id number] Univers 10:03:00 13:05:00 Cynise 38016.1.1 ity of 3.104.2.7 [place] .3.434203 Med[facility] .8 [place] 2020-01-26 2020-01-26 Travel 1.2.840.1 1.2.630.571 [id number] Univers 00:00:00 00:00:00 03941.1.1 350.1.13.10 ity of 3.104.2.7 4[place]7.3.698 [place]3.9[place] 084.8 Medica l .8 [place] 2020-01-25 2020-01-25 Outpatient R EAST, [facility] [id number] Univers 08:30:00 08:30:00 SANTIAGO ity of [facility] 2020-01-25 2020-01-25 Telemedici East, 1.2.840.4 [id number] Univers 07:36:49 08:06:49 ne Visit Santiago 35922.1.1 ity of 3.104.2.7 [place] .3.243051 Med[facility] .8 [place] 2020-01-16 2020-01-16 Outpatient R EAST, [facility] [id number] Univers 08:00:00 08:00:00 SANTIAGO ity of [facility] 2020-01-16 2020-01-16 Telephone East, 1.2.840.4 [id number] Univers 00:00:00 00:00:00 Santiago 27872.1.1 ity of 3.104.2.7 [place] .3.633555 Med[facility] .8 [place] 2020-01-14 2020-01-14 Outpatient R SELF, [facility] [id number] Univers 08:00:00 08:00:00 GADIEL rodas [facility] 2019-12-31 2019-12-31 Outpatient R SELF, [facility] [id number] Univers 08:45:00 08:45:00 GADIEL rodas [facility] 2019-10-17 2019-10-17 Outpatient R EAST, [facility] [id number] Univers 08:30:00 08:30:00 SANTIAGO ity [facility] 2019-10-12 2019-10-12 Outpatient R EAST, [facility] [id number] Univers 13:00:00 13:00:00 SANTIAGO ity [facility] 2019-10-12 2019-10-12 Telemedici East, 1.2.840.4 [id number] Univers 07:38:30 08:08:30 ne Visit Santiago 72874.1.1 ity of 3.104.2.7 [place] .3.814350 [facility] .8 [place] 2019-10-08 2019-10-08 [facility] [id number] Univers 10:15:00 10:15:00 GADIEL barbosa o f [facility] 2019-10-03 2019-10-03 Case Xiao, 1.2.840.7 [id number] Univers 00:00:00 00:00:00 Management Michael Corbin 33828.1.1 i ty of 3.104.2.7 [place] .3.931454 [facility] .8 [place] 2019-09-27 2019-09-27 Telephone East, 1.2.840.8 [id number] Univers 00:00:00 00:00:00 Santiago 94790.1.1 ity of 3.104.2.7 [place] .3.653378 [facility] .8 [place] 2019-09-04 2019-09-04 Refill East, 1.2.840.2 [id number] Univers 00:00:00 00:00:00 Santiago 53587.1.1 ity of 3.104.2.7 [place] .3.436431 [facility] .8 [place] 2019-07-24 2019-07-24 Outpatient R [facility] [id number] Univers 08:30:00 08:30:00 SANTIAGO ity [facility] 2019-07-17 2019-07-17 [facility] [id number] Univers 10:00:00 10:00:00 SANTIAGO ity [facility] 2019-06-15 2019-06-15 Telephone East, 1.2.840.3 [id number] Univers 00:00:00 00:00:00 Santiago 16025.1.1 ity of 3.104.2.7 [place] .3.265257 Med[facility] .8 [place] 2019-06-13 2019-06-13 Telephone Team, [facility] 1.2.840.5 [id number] Univers 00:00:00 00:00:00 Health 14703.1.1 [place]3.715895 [facility] [facility]8 [place] 2019-05-10 2019-05-10 Refill Ronald, 1.2.840.0 [id number] Univers 00:00:00 00:00:00 Santiago 93167.1.1 ity of 3.104.2.7 [place] .3.405677 [facility] .8 [place] 2019-05-09 2019-05-09 Refill Ronald, 1.2.840.7 [id number] Univers 00:00:00 00:00:00 Santiago 74137.1.1 ity of 3.104.2.7 [place] .3.009763 [facility] .8 [place] 2019-04-30 2019-04-30 Outpatient R RODO, [facility] [id number] Univers 10:15:00 10:33:05 GADIEL vogel f [facility] 2019-04-18 2019-04-18 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 Ronald [place] 1.2.840.1 [id number] Univers 10:00:39 10:44:31 Visit [facility] 00851.1.1 ity of 3.104.2.7 [place] .3.866354 Medica l .8 [place] 2019-04-18 2019-04-18 Outpatient R RONALD [facility] [id number] Univers 10:00:00 10:44:31 SANTIAGO itcharlie of [facility] 2019-04-18 2019-04-18 Office Ronald, 1.2.840.8 [id number] Univers 08:27:44 09:53:27 Visit Santiago 55572.1.1 ity of 3.104.2.7 [place] .3.402632 Med[facility] .8 [place] 2019-04-18 2019-04-18 Orders Doctor 1.2.840.8 [id number] Univers 00:00:00 00:00:00 Only Unassigned, 25808.1.1 ity of [place] 3.104.2.7 [place] .3.038483 Med[facility] .8 [place] 2019-04-11 2019-04-11 Refill East, 1.2.840.3 [id number] Univers 00:00:00 00:00:00 [place] 68674.1.1 ity of 3.104.2.7 [place] .3.477063 Med[facility] .8 [place] 2019-04-09 2019-04-09 Refill East, 1.2.840.4 [id number] Univers 00:00:00 00:00:00 Santiago 73464.1.1 ity of 3.104.2.7 [place] .3.352518 Med[facility] l .8 [place] 2019-04-03 2019-04-03 Telephone Team, [facility] 1.2.840.0 [id number] Univers 00:00:00 00:00:00 Health 48398.1.1 [place] .3.376039 [facility] [place] .8 [place] 2019-03-27 2019-03-27 Telephone Self, 1.2.840.7 [id number] Univers 00:00:00 00:00:00 Gadiel 48471.1.1 ity of 3.104.2.7 [place] .3.813921 Medica l .8 [place] 2019-01-17 2019-01-17 Office East, 1.2.840.5 [id number] Univers 07:37:21 10:32:51 Visit Santiago 36052.1.1 ity of 3.104.2.7 [place] .3.806686 Med[facility] l .8 [place] 2019-01-04 2019-01-12 Office Eveline Hansen 1.2.840.7 [id number] Univers 11:19:32 11:08:05 Visit Mariela 25469.1.1 ity of 3.104.2.7 [place] .3.683570 Medica l .8 [place] 2019-01-10 2019-01-10 Telephone Stanislav, 1.2.840.0 [id number] Univers 00:00:00 00:00:00 Eladio Inman 02598.1.1 ity of 3.104.2.7 [place] .3.687417 Medica l .8 [place] 2018-12-18 2018-12-18 Office Geraldine, 1.2.840.8 [id number] Univers 08:48:45 09:13:43 Visit Leyda 20267.1.1 it y of 3.104.2.7 [place] .3.608290 Medica l .8 [place] 2018-10-30 2018-10-30 Telephone East, 1.2.840.1 [id number] Univers 00:00:00 00:00:00 [place] 33545.1.1 ity of 3.104.2.7 [place] .3.034205 Medica l .8 [place] 2018-10-23 2018-10-23 Orders Doctor 1.2.840.9 [id number] Univers 00:00:00 00:00:00 Only Unassigned, 92531.1.1 ity of [place] 3.104.2.7 [place] .3.917286 Medica l .8 [place] 2018-10-23 2018-10-23 Nurse Selvin, 1.2.840.4 [id number] Univers 00:00:00 00:00:00 Triage Stefanie 92071.1.1 ity of 3.104.2.7 [place] .3.912192 Medica l .8 [place] 2018-10-23 2018-10-23 Telephone Self, 1.2.840.3 [id number] Univers 00:00:00 00:00:00 Gadiel 52909.1.1 ity of 3.104.2.7 [place] .3.354245 Medica l .8 [place] 2018-10-20 2018-10-20 Telephone Self, 1.2.840.1 [id number] Univers 00:00:00 00:00:00 Gadiel 06441.1.1 ity of 3.104.2.7 [facility]3.380664 [facility] [place]8 Branch Results Test Description Test Time Test Comments Results Result Comments Source BLOOD CULTURE SCREEN 2022-02-16 06:01:07 Test Item Value Reference Range Interpretation Comme nts Blood Culture-Aerobic (test No organisms isolated No growth Previous preliminary code = 17514-5) verified res ult was Culture In Prog [...] No growth Previous preliminary (test code = 55542-5) verifi ed result was Culture In Prog [...] urs on 02/14/2022 at 01 01 CDT Lab Interpretation (test Normal code = 21154-7) [facility] [id number] 06:01:07 Test Item Value Reference Range Interpretation Comments Blood Culture-Aerobic No organisms No growth Previo us (test code = 81487-9) isolated prelim inary verified result was Culture In Progress on 02/11/2022 at 04 01 CDTPrevious preliminary verified result was No growth a t 24 hours on 02/12/2022 at 01 CDTPrevious preliminary verified result was No growth a t 48 hours on 02/13/2022 at 05 23 CDTPrevious preliminary verified result was No growth a t 72 hours on 02/14/2022 at 01 01 CDT Blood No organisms No growth Previous Culture-Anaerobic isolated preliminar y (test code = 12597-3) verifi ed result was Culture In Progress on 02/11/2022 at 04 CDTPrevious preliminary verified result was No growth a t 24 hours on 02/12/2022 at 05 23 CDTPrevious preliminary verified result was No growth a t 48 hours on 02/13/2022 at 05 23 CDTPrevious preliminary verified result was No growth a t 72 hours on 02/14/2022 at 05 23 CDT Lab Interpretation Normal (test code = 18497-2) [facility] [id number] 10:49:10 Test Item Value Reference Range Interpretation Comments NT-proBNP (test code 2660 pg/mL See_Comment H [Autom ated = 6434025105) message] The system which generated this result transmitted reference range : <=125. The reference range was not used to interpret this result as normal/abnormal . KYLE (test code = KYLE) Biotin has been reported to cause a negative bias, interpret results relative to patient's use of biotin. Lab Interpretation Abnormal (test code = 63489-2) [facility] (NA, K, CL, CO2, GLUCOSE, BUN, CREATININE, CA)2022-02-15 10:44:07 Test Item Value Reference Range Interpretation Comments NA (test code = 134 mmol/L 135-145 L 3745979448) K (test code = 3.2 mmol/L 3.5-5 L 8346819782) CL (test code = 98 mmol/L 98-108 1535872792) CO2 TOTAL (test code = 27 mmol/L 23-31 4599471709) AGAP (test code = 2-16 3365125614) BUN (test code = 19 mg/dL 7-23 8648103956) GLUCOSE (test code = 102 mg/dL 70-110 0041493331) CREATININE (test code = 0.95 mg/dL 0.5-1.04 9605868396) CALCIUM (test code = 8.5 mg/dL 8.6-10.6 L 4390179552) eGFR (test code = mL/min/1.73m2 9186259026) KYLE (test code = KYLE) Association of [...] tests). Lab Interpretation Abnormal (test code = 43941-5) [facility]2022-[facility]-26 10:44:07 Test Item Value Reference Range Interpretation Comments MAGNESIUM (test code = 3817270011) 1.8 mg/dL 1.7-2.4 Lab Interpretation (test code = Normal 50410-4) [facility] WITH [id number] 10:12:06 Test Item Value Reference Range Interpretation Comments WBC (test code = See_Comment L [Automated 9190-2) message] The sy stem which generated this result transmitted reference range : 4.30 - 11.10 10*3/?L. The reference range was not used to interpret this result as normal/abnormal . RBC (test code = See_Comment L [Automated 559-8) message] The sy stem which generated this [...] RDW-SD (test code = 47.8 fL 39-49.9 79039-0) RDW-CV (test code = 15.2 % 12-15.5 788-0) PLT (test code = See_Comment L [Automated 777-3) message] The sy stem which generated this result transmitted reference range : 166 - 358 10*3/ ?L. The reference r abbey was not used to interpret this result as normal/abnormal . MPV (test code = 8.9 fL 9.5-12.9 L 58872-4) NRBC/100 WBC (test See_Comment [Automat ed code = 7495203718) message] The system which generated this result transmitted reference range : 0.0 - 10.0 /100 WBCs. The refer ence range was not u sed to interpret th is result as normal/abnormal . NRBC x10^3 (test code See_Comment [Auto mated = 1979791589) message] The s ystem which generated this result transmitted reference range : 10*3/?L. The reference range was not used to interpret this result as normal/abnormal . GRAN MAT (NEUT) % 65.9 % (test code = 770-8) IMM GRAN % (test code 0.30 % = 4071028119) LYMPH % (test code = 21.0 % 736-9) MONO % (test code = 10.1 % 5905-5) EOS % (test code = 2.4 % 713-8) BASO % (test code = 0.3 % 706-2) GRAN MAT x10^3(ANC) 2.49 10*3/uL 1.88-7.09 (test code = 8389356009) IMM GRAN x10^3 (test 0-0.06 code = 7618449571) LYMPH x10^3 (test code 0.79 10*3/uL 1.32-3.29 L = 731-0) MONO x10^3 (test code 0.38 10*3/uL 0.33-0.92 = 742-7) EOS x10^3 (test code = 0.09 10*3/uL 0.03-0.39 711-2) BASO x10^3 (test code 0.01-0.07 = 704-7) Lab Interpretation Abnormal (test code = 29303-3) [facility] WITH [id number] 11:18:28 Test Item Value Reference Range Interpretation [...] RDW-SD (test code = 49.5 fL 39-49.9 68449-8) RDW-CV (test code = 15.5 % 12-15.5 788-0) PLT (test code = See_Comment L [Automated 777-3) message] The sy stem which generated this result transmitted reference range : 166 - 358 10*3/ ?L. The reference r abbey was not used to interpret this result as normal/abnormal . MPV (test code = 11.4 fL 9.5-12.9 45204-2) IPF % (test code = 8.7 % 1.3-7.7 H Platelet count 8001996233) measured by fluorescence method. NRBC/100 WBC (test See_Comment [Automat ed code = 7960437334) message] The system which generated this result transmitted reference range : 0.0 - 10.0 /100 WBCs. The refer ence range was not u sed to interpret th is result as normal/abnormal . NRBC x10^3 (test code See_Comment [Auto mated = 2138789478) message] The s ystem which generated this result transmitted reference range : 10*3/?L. The reference range was not used to interpret this result as normal/abnormal . GRAN MAT (NEUT) % 62.0 % (test code = 770-8) IMM GRAN % (test code 0.80 % = 5194182477) LYMPH % (test code = 22.2 % 736-9) MONO % (test code = 9.6 % 5905-5) EOS % (test code = 5.1 % 713-8) BASO % (test code = 0.3 % 706-2) GRAN MAT x10^3(ANC) 2.21 10*3/uL 1.88-7.09 (test code = 7629254541) IMM GRAN x10^3 (test 0.03 10*3/uL 0-0.06 code = 9314701343) LYMPH x10^3 (test code 0.79 10*3/uL 1.32-3.29 L = 731-0) MONO x10^3 (test code 0.34 10*3/uL 0.33-0.92 = 742-7) EOS x10^3 (test code = 0.18 10*3/uL 0.03-0.39 711-2) BASO x10^3 (test code 0.01-0.07 = 704-7) POLYCHROMASIA (test 2+ See_Comment [Automa arpit code = 58146-8) message] The system which generated this result [...] . Lab Interpretation Abnormal (test code = 80670-8) [facility] (NA, K, CL, CO2, GLUCOSE, BUN, CREATININE, CA)2022-02-13 10:39:07 Test Item Value Reference Range Interpretation Comments NA (test code = 136 mmol/L 135-145 5766730109) K (test code = 4.1 mmol/L 3.5-5 1469014019) CL (test code = 102 mmol/L 98-108 1836138183) CO2 TOTAL (test code = 27 mmol/L 23-31 0332429114) AGAP (test code = 2-16 1645824672) BUN (test code = 22 mg/dL 7-23 0321237666) GLUCOSE (test code = 94 mg/dL 70-110 5804890600) CREATININE (test code = 0.94 mg/dL 0.5-1.04 6220622895) CALCIUM (test code = 8.1 mg/dL 8.6-10.6 L 1036210053) eGFR (test code = mL/min/1.73m2 2232660059) KYLE (test code = KYLE) Association of [...] tests). Lab Interpretation Abnormal (test code = 80801-6) [facility]2022-02-12 01:50:10 Test Item Value Reference Range Interpretation Comments Height (test code = in 9914651161) Weight (test code = lbs 6964752544) Systolic BP (test code mmHg = 7728352583) Diastolic BP (test code mmHg = 2802574212) Heart Rate (test code = bpm 8198165758) BSA (test code = 1.85 m2 2380345086) IVS (test code = 1.22 cm 7492718011) Interventricular Septum 1.22 cm Diastolic Thickness by 2D (test code = 3114212) LVIDD (test code = 5.00 cm 6062126342) Left Ventricular End 117.9 mL Diastolic Volume by Teichholz Method (test code = 6298922) LVPWD (test code = 1.22 cm 6424939179) PW (test code = 1.22 cm 0.6-1.7 0044917751) EF(Teich) (test code = 74.60 % 0865325994) LVIDS (test code = 2.80 cm 6799257392) Left Ventricular End 29.9 mL Systolic Volume by Teichholz Method (test code = 6217114) FS (test code = 44 % 0343465534) EF - 2D (test code = 74.60 % 79914155) LVOT diameter (test 2.16 cm code = 4134945023) LVOT area (test code = 3.70 cm2 6386709833) Ao root diam (test code 3.40 cm = 5712464152) Aortic root (test code 3.4 cm = 9447220537) Ao root annulus (test 3.4 cm code = 5460960684) LA size (test code = 3.4 cm 9843066706) TR Peak Spencer (test code 330.0 cm/s = 0262316934) Triscuspid Valve mmHg Regurgitation Peak Gradient (test code = 8188590733) PV REGURGITATION PEAK mmHg GRADIENT (test code = 2978654994) PI dec slope (test code 137.20 cm/s2 = 2905532457) LAV(MOD-sp4) (test code 102.90 mL = 2566855619) MV Peak E Spencer (test 84.1 cm/s code = 5586968304) MV Peak A Spencer (test 40.1 cm/s code = 7820545566) E/A ratio (test code = ratio 4290409604) MV valve area p 1/2 3.70 cm2 method (test code = 3794965202) MV dec slope (test code 413.00 cm/s2 = 9198917805) MV P1/2t max spencer (test 83.70 cm/s code = 7111685887) MV Prop V (test code = 41.80 cm/s 6938719185) Tapse (test code = 1.83 cm 8122729942) LVOT stroke volume 96.90 cm3 (test code = 5726984266) LVOT peak spencer (test 125.5 cm/s code = 8012894170) LVOT mn grad (test code mmHg = 2038705014) AV LVOT peak gradient mmHg (test code = 9654787516) LVOT peak VTI (test 26.4 cm code = 8447765385) LV V1 mean (test code = 78.10 cm/s 0007849045) Aortic valve mean 103.7 cm/s velocity (test code = 9251819311) Ao peak spencer (test code 165.6 cm/s = 7586058248) Ao VTI (test code = 37.2 cm 9320317598) AV area by cont VTI 2.6 cm2 (test code = 3890431309) AV area peak spencer (test 2.8 cm2 code = 7903577464) Ao max PG (test code = 11.00 mm[Hg] 1615082388) AV peak gradient (test mmHg code = 9689365052) AV valve area (test 2.60 cm2 code = 1426625255) AV mean gradient (test mmHg code = 2268205046) LA Volume Index (BP) 55.2 mL/m2 (test code = 2728137353) LA volume (BP) (test 102.1 mL code = 6304642453) LAV(MOD-sp2) (test code 86.10 mL = 2618779244) A2C EF (test code = 61.20 % 9480118350) EF(sp2-el) (test code = 61.60 % 2874565637) SV(MOD-sp2) (test code 47.10 mL = 1024068494) LV Diastolic Volume 70.7 mL (BP) (test code = 7621629509) A4C EF (test code = 53.00 % 4765382665) EF(MOD-bp) (test code = 56.70 % 4627943036) EF(sp4-el) (test code = 53.90 % 2534499216) LV Systolic Volume (BP) 30.6 mL (test code = 8197019718) SV(MOD-bp) (test code = 40.10 mL 0049296814) SV(MOD-sp4) (test code 32.40 mL = 5786849552) SV(sp4-el) (test code = 33.10 mL 9657147505) EF (test code = 5856404327) Left Ventricular Stroke 40.1 mL Volume by 2-D Biplane-MOD (test code = 9291018) LV Diastolic Volume 38.2 mL/m2 Index (BP) (test code = 7660970520) LV Systolic Volume 16.5 mL/m2 Index (BP) (test code = 1935448815) Radiology Study observation (narrative) (test code = 19792-5) KYLE (test code = KYLE) ?Left?Ventricle: Left [...] 1.00The left ventricular wall motion is normal. [facility] [id number] 05:45:01 Test Item Value Reference Interpretation Comments Range TROPONIN I (test See_Comment [Automated code = 6010317828) message] The system which generated this result [...] biotin. Lab Interpretation Normal (test code = 10521-6) [facility] [id number] 05:41:40 Test Item Value Reference Range Interpretation Comments NT-proBNP (test code 4250 pg/mL See_Comment H [Autom ated = 6749697074) message] The system which generated this result transmitted reference range : <=125. The reference range was not used to interpret this result as normal/abnormal . KYLE (test code = KYLE) Biotin has been reported to cause a negative bias, interpret results relative to patient's use of biotin. Lab Interpretation Abnormal (test code = 87846-2) [facility] CenterACT[facility]IAL THRMPLAS [id number] 05:35:21 Test Item Value Reference Range Interpretation Comments APTT Patient (test See_Comment [Automat ed code = 3173-2) message] The system which generated this result transmitted reference range : 23 - 38 Seconds . The reference range was not used to interpr et this result as normal/abnormal . KYLE (test code = KYLE) The [facility] patient population mean normal value for aPTT is 30 seconds. Lab Interpretation Normal (test code = 50903-2) [facility] CenterPROTHROMBIN TIME / [id number] 05:33:21 Test Item Value Reference Range Interpretation [...] tions. Lab Interpretation (test Normal code = 18027-1) [facility] CenterCOMP. METABOLIC PANEL (13829)2022-02-11 05:33:21 Test Item Value Reference Range Interpretation Comments NA (test code = 137 mmol/L 135-145 0147704347) K (test code = 4.3 mmol/L 3.5-5 9491314431) CL (test code = 103 mmol/L 98-108 7053221584) CO2 TOTAL (test code = 25 mmol/L 23-31 1568385302) AGAP (test code = 2-16 3464968113) BUN (test code = 19 mg/dL 7-23 1689715590) GLUCOSE (test code = 120 mg/dL 70-110 H 6551499506) CREATININE (test code = 1.15 mg/dL 0.5-1.04 H 4366081648) TOTAL BILI (test code = 0.9 mg/dL 0.1-1.7 3036279778) CALCIUM (test code = 8.9 mg/dL 8.6-10.6 0993334473) T PROTEIN (test code = 6.6 g/dL 6.3-8.2 6111400104) ALBUMIN (test code = 4.0 g/dL 3.5-5 8760445304) ALK PHOS (test code = 73 U/L 34-122 5242158489) ALTv (test code = 18 U/L 5-35 1742-6) AST(SGOT) (test code = 31 U/L 13-40 2996729680) eGFR (test code = mL/min/1.73m2 4487058433) KYLE (test code = KYLE) Association of [...] tests). Lab Interpretation Abnormal (test code = 49486-2) [facility] WITH [id number] 05:14:37 Test Item Value Reference Range Interpretation Comments WBC (test code = See_Comment [Automated 6690-2) message] The sy stem which [...] RDW-SD (test code = 47.9 fL 39-49.9 08604-2) RDW-CV (test code = 14.9 % 12-15.5 788-0) PLT (test code = See_Comment L [Automated 777-3) message] The sy stem which generated this result transmitted reference range : 166 - 358 10*3/ ?L. The reference r abbey was not used to interpret this result as normal/abnormal . MPV (test code = 9.1 fL 9.5-12.9 L 49164-0) NRBC/100 WBC (test See_Comment [Automat ed code = [id number]) message] The system which generated this result transmitted reference range : 0.0 - 10.0 /100 WBCs. The refer ence range was not u sed to interpret th is result as normal/abnormal . NRBC x10^3 (test code See_Comment [Auto mated = [id number]) message] The s ystem which generated this result transmitted reference range : 10*3/?L. The reference range was not used to interpret this result as normal/abnormal . GRAN MAT (NEUT) % 78.5 % (test code = 770-8) IMM GRAN % (test code 0.20 % = 5489286011) LYMPH % (test code = 11.6 % 736-9) MONO % (test code = 8.4 % 5905-5) EOS % (test code = 1.1 % 713-8) BASO % (test code = 0.2 % 706-2) GRAN MAT x10^3(ANC) 3.45 10*3/uL 1.88-7.09 (test code = 7136240927) IMM GRAN x10^3 (test 0-0.06 code = 8309756207) LYMPH x10^3 (test code 0.51 10*3/uL 1.32-3.29 L = 731-0) MONO x10^3 (test code 0.37 10*3/uL 0.33-0.92 = 742-7) EOS x10^3 (test code = 0.05 10*3/uL 0.03-0.39 711-2) BASO x10^3 (test code 0.01-0.07 = 704-7) Lab Interpretation Abnormal (test code = 17055-1) [facility] Coronavirus 2019 Josotmp0678-19-26 18:08:00 Test Item Value Reference Range Interpretation [...] det ection of nucleic acids f rom gbjYVYZ-QnA-7 v irus and diagnosis of SA RS-CoV-2 virusinfection. It is an Emergency Use Authorization ( EUA) testauthorized by the U.S. FDA. BASIC METABOLIC NOEGD0571-70-34 09:37:00 Test Item Value Reference Range Interpretation [...] = 9.0 mg/dL 8.0-10.5 N CA) PROTHROMBIN QSLQ7728-46-26 09:32:00 Test Item Value Reference Range Interpretation [...] (to prevent recurrent infar ct). 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 : 1955 Age/S: 66/F [address] [place] [address] Unit #: [id number] Loc: [place] [address] Phys: Bahman Chopra [employer] Acct: [id number] Dis Date: Status: ADM IN PHONE #: [phone] Exam Date: 06/17/2021 1320 FAX #: [phone] Reason: WATCHMAN EXAMS: CPT CODE: [id number] XR CHEST 1 V 73930 PROCEDURE INFORMATION: Exam: XR Chest Exam date [...] Chopra Technologist: RT Taylor(R) Trnscrd Date/Time/By: 06/17/2021 (9849) : By:Susanna Orig Print D/T: S: 06/17/2021 (8946) PAGE 1 Signed ReportCOVID 19 Asymptomatic IH [...] high or waivedcomplexit y tests. BASIC METABOLIC GCDLZ3438-04-24 11:37:00 Test Item Value Reference Range Interpretation [...] code = 9.0 mg/dL 8.0-10.5 N CA) MKKBHMEVKI2813-28-45 11:37:00 Test Item Value Reference Range Interpretation Comments PREALBUMIN (test code = PREALB) 24.3 mg/dL 16.0-40.0 N PROTHROMBIN [id number] 11:03:00 Test Item Value Reference Range Interpretation [...] (to prevent recurrent infar ct). CBC W/AUTO INGG6850-40-94 10:59:00 Test Item Value Reference Range Interpretation [...] 0.0-0.1 N NRBC#) - XR CHEST 2 [id number] 00:00:00 [facility] 1955 Sex: F FAX: Carmenza Kelly DO [phone] [place]: St: PRE FAX: Mike Scales MD [phone] Name: LIO WATTS [facility] : 1955 Age/S: 66/F [address] [place] [address] Unit #: [id number] [place]: [place] [address] Phys: Mike Lund MD Acct: [id number] Dis Date: Status: PRE [facility] PHONE #: [phone] Exam Date: 06/16/2021 1120 FAX #: [phone] Reason: PREOP EXAMS: CPT CODE: [id number] XR CHEST 2 V 77377 PROCEDURE INFORMATION: Exam: XR Chest Exam date [...] Technologist: Danielle Nix RT(R) Trnscrd Date/Time/By: 06/16/2021 (4392) : By: [email or web address] Orig Print D/T: S: 06/16/2021 (1311) PAGE 1 Signed ReportGastrointestinal tvtnp9545-43-69 04:35:05 Test Item Value Reference Interpretation Comments [...] Rotavirus PCR (test Not Detected code = 3100098) Salmonella PCR (test Not Detected code = [...] PCR Not Detected (test code = 7124) [facility] gmnvybf1260-87-08 19:30:47 Test Item Value Reference Range Interpretation Comments Case number (test [id number] code = 3418091) Surgical pathology See link below for PDF report (test code = Lab Report 2255) Result status (test This is Supplemental code = 7737269) Report for [id number] [facility]2021-04-09 16:31:00 Test Item Value Reference Range Interpretation Comments POC Activated Clotting Time (test code 153 s = POC Activated Clotting Time) [facility]udaNaizudxFSEOUKAMXG6694-64-38 16:31:00 Test Item Value Reference Range Interpretation Comments POC Activated Clotting Time (test code 153 s = POC Activated Clotting Time) [facility] BudaNlqjzrdCDYPPQIXBY6586-45-18 16:31:00 Test Item Value Reference Range Interpretation Comments POC Activated Clotting Time (test code 153 s = POC Activated Clotting Time) [facility] BudaPtlhiloMDUMNJVNRA2926-62-82 16:31:00 Test Item Value Reference Range Interpretation Comments POC Activated Clotting Time (test code 153 s = POC Activated Clotting Time) [facility] BudaKkileliDGJNZMRUNN1209-98-59 16:31:00 Test Item Value Reference Range Interpretation Comments POC Activated Clotting Time (test code 153 s = POC Activated Clotting Time) [facility] BudaYmbslhnTSCSLLUHWS9801-57-01 16:31:00 Test Item Value Reference Range Interpretation Comments POC Activated Clotting Time (test code 153 s = POC Activated Clotting Time) [facility] BudaPjienvgZRTOFFOOWV3656-22-15 16:31:00 Test Item Value Reference Range Interpretation Comments POC Activated Clotting Time (test code 153 s = POC Activated Clotting Time) [facility] BudaJawuknbZWQVYOEDND3459-83-65 14:37:00 Test Item Value Reference Range Interpretation Comments POC Activated Clotting Time (test code 454 s = POC Activated Clotting Time) [facility] BudaKyosnhjAYSETRMTHP2679-48-36 14:37:00 Test Item Value Reference Range Interpretation Comments POC Activated Clotting Time (test code 454 s = POC Activated Clotting Time) [facility] BudaWukpzwuTERCXSBYXH2208-29-59 14:37:00 Test Item Value Reference Range Interpretation Comments POC Activated Clotting Time (test code 454 s = POC Activated Clotting Time) [facility] BudaMvvznbhDPFAURBGJU5096-31-41 14:37:00 Test Item Value Reference Range Interpretation Comments POC Activated Clotting Time (test code 454 s = POC Activated Clotting Time) [facility]udaPxgmsyqSRVJFPXJOU3401-64-47 14:37:00 Test Item Value Reference Range Interpretation Comments POC Activated Clotting Time (test code 454 s = POC Activated Clotting Time) [facility] BudaKjdypccXSUCQGFQPV9512-05-33 14:37:00 Test Item Value Reference Range Interpretation Comments POC Activated Clotting Time (test code 454 s = POC Activated Clotting Time) [facility] BudaQvloatoKHPIKVVRLZ1288-73-62 14:37:00 Test Item Value Reference Range Interpretation Comments POC Activated Clotting Time (test code 454 s = POC Activated Clotting Time) [facility] BudaRfiuxdzWUXOMAZPCB4615-26-13 14:13:00 Test Item Value Reference Range Interpretation Comments POC Activated Clotting Time (test code 354 s = POC Activated Clotting Time) [facility] BudaSbwrlfzKPYFAHAMSX1501-32-73 14:13:00 Test Item Value Reference Range Interpretation Comments POC Activated Clotting Time (test code 354 s = POC Activated Clotting Time) [facility] BudaZglhvunBZOFECLOUD0171-30-92 14:13:00 Test Item Value Reference Range Interpretation Comments POC Activated Clotting Time (test code 354 s = POC Activated Clotting Time) [facility] BudaEybvmlgEQVMRXLMXA9218-65-10 14:13:00 Test Item Value Reference Range Interpretation Comments POC Activated Clotting Time (test code 354 s = POC Activated Clotting Time) [facility] BudaOaehwibYYBWEQLEPW2485-30-66 14:13:00 Test Item Value Reference Range Interpretation Comments POC Activated Clotting Time (test code 354 s = POC Activated Clotting Time) [facility] BudaDylgrwqQHSCGARJZH4451-08-93 14:13:00 Test Item Value Reference Range Interpretation Comments POC Activated Clotting Time (test code 354 s = POC Activated Clotting Time) [facility] BudaXnbmxtwVDYOJSVBSC5318-18-95 14:13:00 Test Item Value Reference Range Interpretation Comments POC Activated Clotting Time (test code 354 s = POC Activated Clotting Time) [facility] PIYFIDY5203-07-93 10:37:00Negative (08/29/20 5:37 AM) [facility]CHE[facility] IXIEG7497-21-36 10:37:46128Awmozuzy HermannCHEM PANEL 2020-08-29 10:37:0028[facility] HermannCHEM MJUBI9337-12-43 10:37:001.01[facility] HermannCHEM TBPIU2013-26-25 10:37:54567Fpyeqrkj HermannCHEM CLRFT9061-20-81 10:37:003.8[facility] HermannCHEM YKHNC3493-11-77 10:37:26422Oxiwcfan HermannCHEM JIDQB6201-57-53 10:37:0028[facility] HermannCHEM SGLVF5932-33-55 10:37:009.8 [facility]annCHEM KHFTG3453-66-58 10:37:0011.8[facility] HermannCHEM PANEL 2020-08-29 10:37:0059[facility] HermannCHEM PFZAG9221-59-44 10:37:002.9[facility] WbywrwsSUNFRKORCG9194-85-05 10:37:006.8[facility] GauhnmkYMPDANGJRH0428-73-53 10:37:004.47[facility] FdqgicgVQHOUFGPCF6066-23-11 10:37:0010.6[facility] NXKOYZIEWO7017-55-28 10:37:0034.0[facility] ImrtiptGSREYFQYFY5285-82-96 10:37:00 76.1[facility] UkyaaqqCFDAWQMLVX3229-94-75 10:37:00 Test Item Value Reference Range Interpretation Comments MCH (test code = MCH) 23.8 pg 27.0-31.0 [facility] GbxridyYLBPGRHNOI4435-89-16 10:37:0031.3[facility] HermannHEMATOLOGY 2020-08-29 10:37:0018.2[facility] ZadvjmbSABSOFNBKV7523-60-32 10:37:83048Onuclhni BwxtmywJOBRHVFQMP5266-53-34 10:37:007.5[facility] EqxzxkgLZYDPJFYIA6676-20-61 10:37:00 Test Item Value Reference Range Interpretation Comments PT (test code = PT) 12.8 s 12.0-14.7 [facility] QmwotgzBUZFVSVCRJ9835-85-41 10:37:00 Test Item Value Reference Range Interpretation Comments INR (test code = INR) 0.97 1 0.85-1.17 [facility] QvrupgoBVJWTNCADY0132-52-22 10:37:00 Test Item Value Reference Range Interpretation Comments PTT (test code = PTT) 25.0 s 22.9-35.8 [facility] KkxddulNDFKTZCGWF1193-29-93 10:37:0070.5[facility] HermannHEMATOLOGY 2020-08-29 10:37:0018.8[facility] IkcowtdDBKACJJRXD3072-38-45 10:37:009.5[facility] LklzdqfYNSXUQAMHR4397-16-61 10:37:000.9[facility] ZyjfujdFHSNSQHPSC9745-87-01 10:37:000.3[facility] VbxejwiBDNGZBYDOZ6559-42-38 10:37:004.8[facility] AHLEYNDEVL5401-05-81 10:37:001.3[facility] UpucaisEJIUKBOVLH1023-31-93 10:37:000.6 [facility] WoevkfgWNWXUORUUP8439-43-95 10:37:000.1[facility] HermannHEMATOLOGY 2020-08-29 10:37:001+ *ABN*(08/29/20 5:37 AM)[facility] WcuslkxORHYODMYMB5413-97-33 10:37:00Not Detected (08/29/20 5:37 AM)[facility] HermannBLOOD BANK RESULTS 2020-08-29 10:37:00Negative (08/29/20 5:37 AM)[facility] HermannCHEM VBCIQ3557-00-07 10:37:79518Ecdnmjdj HermannCHEM PUDAC9831-93-37 10:37:0028[facility] HermannCHEM VJUDU2745-30-10 10:37:001.01[facility] HermannCHEM NJHIQ9613-38-98 10:37:98162 [facility] HermannCHEM BIXBE2345-25-38 10:37:003.8[facility] HermannCHEM PANEL 2020-08-29 10:37:62998Soaefhyb HermannCHEM GEHEA1990-51-95 10:37:0028[facility] HermannCHEM VSEXT5355-43-38 10:37:009.8[facility] HermannCHEM EZGGV8884-64-61 10:37:0011.8[facility] HermannCHEM NCBWB8053-75-23 10:37:0059[facility] HermannCHEM MZVUD0635-33-00 10:37:002.9[facility] BdqyhlcJGGAFRVCDR1014-17-31 10:37:006.8 [facility] VnertpkYQLPBITDKX8964-88-19 10:37:004.47[facility] HermannHEMATOLOGY 2020-08-29 10:37:0010.6[facility] SdokjnpNGZKKKXYBW7917-02-01 10:37:0034.0[facility] SyxyscqOTXBFLXAYU4108-22-03 10:37:0076.1[facility] CdidotxIDAGAEKMWI2636-16-88 10:37:00 Test Item Value Reference Range Interpretation Comments MCH (test code = MCH) 23.8 pg 27.0-31.0 [facility] DcawlczJSKETAFIAI7454-78-77 10:37:0031.3[facility] HermannHEMATOLOGY 2020-08-29 10:37:0018.2[facility] WkroxttSENFCXORMK7708-53-15 10:37:50775Jgpedxzj DbkfsrxAJGFPTSNKO5674-40-61 10:37:007.5[facility] RxgtxvpBBSNKWDHPY9632-20-19 10:37:00 Test Item Value Reference Range Interpretation Comments PT (test code = PT) 12.8 s 12.0-14.7 [facility] EjflpeaRJLNTNRISR5079-19-92 10:37:00 Test Item Value Reference Range Interpretation Comments INR (test code = INR) 0.97 1 0.85-1.17 [facility] PwqpxygXWBHBFKIOL6319-93-50 10:37:00 Test Item Value Reference Range Interpretation Comments PTT (test code = PTT) 25.0 s 22.9-35.8 [facility] OnirhypTVSDUDGUWB0528-49-45 10:37:0070.5[facility] HermannHEMATOLOGY 2020-08-29 10:37:0018.8[facility] WyncsyvTYKZPGFVGZ9914-97-12 10:37:009.5[facility] JlvbuyqXIGTFWFFBU7941-90-38 10:37:000.9[facility] KnvtcpeXKTRSCBLZZ9927-99-43 10:37:000.3[facility] ToktphdBZAYNIBXJH0123-41-27 10:37:004.8[facility] CWEBOZAGFT8223-68-73 10:37:001.3[facility] FydurugBLCURYKKCJ8587-78-12 10:37:000.6 [facility] PdbykbsXBUNQMYXQL7785-99-97 10:37:000.1[facility] HermannHEMATOLOGY 2020-08-29 10:37:001+ *ABN*(08/29/20 5:37 AM)[facility] AdpckemEKSASGHYRQ6746-44-85 10:37:00Not Detected (08/29/20 5:37 AM)[facility] HermannBLOOD BANK RESULTS 2020-08-29 10:37:00Negative (08/29/20 5:37 AM)[facility] HermannCHEM CCHXO2291-59-09 10:37:11778Vyytcpbj HermannCHEM PUUJB3075-30-75 10:37:0028[facility] HermannCHEM YROOC2764-04-12 10:37:001.01[facility] HermannCHEM BHGDT8363-63-45 10:37:57375 [facility] HermannCHEM XVRUH9754-11-66 10:37:003.8[facility] HermannCHEM PANEL 2020-08-29 10:37:92155Rbvyphio HermannCHEM GVSDC0658-49-31 10:37:0028[facility] HermannCHEM TXCAK5188-51-29 10:37:009.8[facility] HermannCHEM XPUKM9836-38-55 10:37:0011.8[facility] HermannCHEM ILKSK6819-15-71 10:37:0059[facility] HermannCHEM XESYK8894-94-11 10:37:002.9[facility] ZgqnqvyYWZOCHZSZB5528-19-46 10:37:006.8 [facility] VxrgaqlLUBMEKPHPM1388-60-06 10:37:004.47[facility] HermannHEMATOLOGY 2020-08-29 10:37:0010.6[facility] OdrbzqtTIWQSLHPBK6969-56-67 10:37:0034.0[facility] HhgfuuoVLLPPSXBLJ2832-11-89 10:37:0076.1[facility] OwxjiyyPNGKYHAJCR8421-75-58 10:37:00 Test Item Value Reference Range Interpretation Comments MCH (test code = MCH) 23.8 pg 27.0-31.0 [facility] PgmkxdpHUUNLFSHIO8001-42-81 10:37:0031.3[facility] HermannHEMATOLOGY 2020-08-29 10:37:0018.2[facility] WzmnkdgXDPBXRBENN6607-40-72 10:37:73754Sgjogrdg UitgwnlHBSWGRVSXY0545-17-28 10:37:007.5[facility] LzbkrzxMRPTNSYXJA3811-09-77 10:37:00 Test Item Value Reference Range Interpretation Comments PT (test code = PT) 12.8 s 12.0-14.7 [facility] VhdimgqULXNHEIKUI1536-44-12 10:37:00 Test Item Value Reference Range Interpretation Comments INR (test code = INR) 0.97 1 0.85-1.17 [facility] PqfrstaOHIZDCWQSF7332-93-93 10:37:00 Test Item Value Reference Range Interpretation Comments PTT (test code = PTT) 25.0 s 22.9-35.8 [facility] PkdsjnrZYCSWYFURP6192-22-22 10:37:0070.5[facility] HermannHEMATOLOGY 2020-08-29 10:37:0018.8[facility] FgjnwlrPLTAXXEIUI4873-53-64 10:37:009.5[facility] ZemrgjyIEHQFEGINH5509-32-26 10:37:000.9[facility] ZhpfooaGTQNDIYUKZ7510-46-97 10:37:000.3[facility] IevyrkdUNCILWNBEM4187-63-15 10:37:004.8[facility] MCTIWCJSBB7008-41-04 10:37:001.3[facility] HaktsmuZYOVKNCQIU0849-92-22 10:37:000.6 [facility] OmnfyfwCDTGKXYRGM5396-29-06 10:37:000.1[facility] HermannHEMATOLOGY 2020-08-29 10:37:001+ *ABN*(08/29/20 5:37 AM)[facility] MwqwibnCGTKHORMEP9745-07-11 10:37:00Not Detected (08/29/20 5:37 AM)[facility] HermannBLOOD BANK RESULTS 2020-08-29 10:37:00Negative (08/29/20 5:37 AM)[facility] HermannCHEM JODDU3060-55-72 10:37:58104Eoavhhkp HermannCHEM NXTWO3022-39-79 10:37:0028[facility] HermannCHEM XGHYV4795-17-69 10:37:001.01[facility] HermannCHEM PJPYB1285-76-63 10:37:65194 [facility] HermannCHEM WUBFW2571-52-48 10:37:003.8[facility] HermannCHEM PANEL 2020-08-29 10:37:58382Czgebxyq HermannCHEM BZBWV6434-53-98 10:37:0028[facility] HermannCHEM WOCMT0098-45-84 10:37:009.8[facility] HermannCHEM FHZEX0640-08-49 10:37:0011.8[facility] HermannCHEM CKYLO5727-97-83 10:37:0059[facility] HermannCHEM UBSDD6768-53-68 10:37:002.9[facility] HfeskinTHIDCDBABQ5207-41-89 10:37:006.8 [facility] XdwmwbvJBDXTRNCIR2340-59-19 10:37:004.47[facility] HermannHEMATOLOGY 2020-08-29 10:37:0010.6[facility] UhnwktiXJWYARJJNE5359-76-41 10:37:0034.0[facility] TpvtulhIQDYVBLZGU7201-70-49 10:37:0076.1[facility] CzickflDVJDDMAKMZ1400-41-52 10:37:00 Test Item Value Reference Range Interpretation Comments MCH (test code = MCH) 23.8 pg 27.0-31.0 [facility] MvtunvkEDROHPBKOL4341-64-47 10:37:0031.3[facility] HermannHEMATOLOGY 2020-08-29 10:37:0018.2[facility] EjznpzbADKMHGGBUV1738-13-91 10:37:40252Cgxjfnes YctssuhJLHKZLWPTM9628-09-12 10:37:007.5[facility] NwpnapnOPYCTJPTIG1779-27-99 10:37:00 Test Item Value Reference Range Interpretation Comments PT (test code = PT) 12.8 s 12.0-14.7 [facility] AwxabujCWLISGUBUU1245-28-08 10:37:00 Test Item Value Reference Range Interpretation Comments INR (test code = INR) 0.97 1 0.85-1.17 [facility] JhvclswVQEPTSNYPL4575-07-38 10:37:00 Test Item Value Reference Range Interpretation Comments PTT (test code = PTT) 25.0 s 22.9-35.8 [facility] DtysdvuSGKWJJBGTO1585-08-73 10:37:0070.5[facility] HermannHEMATOLOGY 2020-08-29 10:37:0018.8[facility] VcpfrawRVIGDVTYXM4384-97-00 10:37:009.5[facility] SfxlzjcVDEPEXXZMM2022-36-09 10:37:000.9[facility] FvogyzqFZIXNASZVD6599-17-98 10:37:000.3[facility] GuxzrznNQSAQTAQPZ6361-26-57 10:37:004.8[facility] DLXUEIFJOZ6427-21-73 10:37:001.3[facility] FiauqpxEVXXIVTYWT4900-91-00 10:37:000.6 [facility] SmnllelKJYPIEHZOR5144-43-76 10:37:000.1[facility] HermannHEMATOLOGY 2020-08-29 10:37:001+ *ABN*(08/29/20 5:37 AM)[facility] DmqmxprWKZXIMGQEX2888-89-29 10:37:00Not Detected (08/29/20 5:37 AM)[facility] HermannBLOOD BANK RESULTS 2020-08-29 10:37:00Negative (08/29/20 5:37 AM)[facility] HermannCHEM AEEJE1163-49-98 10:37:27016Zsforrll HermannCHEM FWMVK7363-40-86 10:37:0028[facility] HermannCHEM RVOOA7853-29-10 10:37:001.01[facility] HermannCHEM SQSDL2241-48-87 10:37:07099 [facility] HermannCHEM NUQVB2155-90-19 10:37:003.8[facility] HermannCHEM PANEL 2020-08-29 10:37:59378Pvlswpmq HermannCHEM MHAJF4848-09-90 10:37:0028[facility] HermannCHEM RZGRZ5605-10-60 10:37:009.8[facility] HermannCHEM AYNUJ5141-64-79 10:37:0011.8[facility] HermannCHEM WGHFA8503-36-35 10:37:0059[facility] HermannCHEM HCUEG5337-57-29 10:37:002.9[facility] BdutfrqPIRJNLXCCA9006-84-92 10:37:006.8 [facility] PjorictBQEMXNJMWV3254-44-26 10:37:004.47[facility] HermannHEMATOLOGY 2020-08-29 10:37:0010.6[facility] JmixumhPKSMXINNRY7057-82-02 10:37:0034.0[facility] PkfwoloITICUWOCRA1542-00-93 10:37:0076.1[facility] YxpnnkaXIZQVWIKDY0788-13-07 10:37:00 Test Item Value Reference Range Interpretation Comments MCH (test code = MCH) 23.8 pg 27.0-31.0 [facility] CmkydyyBIYCTKKSRN4150-86-26 10:37:0031.3[facility] HermannHEMATOLOGY 2020-08-29 10:37:0018.2[facility] JyelwynYMLXKWPORD7177-28-00 10:37:98884Lsmzalnm GpcyxqfOQTNATHPUF0377-49-31 10:37:007.5[facility] GgxpmvxDGBISAWUSK2722-20-64 10:37:00 Test Item Value Reference Range Interpretation Comments PT (test code = PT) 12.8 s 12.0-14.7 [facility] IfjvfvuLKPWXBVAYC5725-28-29 10:37:00 Test Item Value Reference Range Interpretation Comments INR (test code = INR) 0.97 1 0.85-1.17 [facility] XfujlbfQIWXLUTZNN3909-16-19 10:37:00 Test Item Value Reference Range Interpretation Comments PTT (test code = PTT) 25.0 s 22.9-35.8 [facility] SxdvavjKVLJWZBNIS3580-29-96 10:37:0070.5[facility] HermannHEMATOLOGY 2020-08-29 10:37:0018.8[facility] BempakyMQQXIGOXLU2931-58-69 10:37:009.5[facility] XggpatlAYUBCPHKST2201-50-66 10:37:000.9[facility] QxxlorwJOBVZKEUOB2286-08-70 10:37:000.3[facility] VtcvbgdNVMIALDEHB1440-91-54 10:37:004.8[facility] MNTNZJXMJC2780-43-13 10:37:001.3[facility] OcptawuWKNOJPBWCO4454-58-81 10:37:000.6 [facility] OgtzzmyTLBICGGRPB9367-65-62 10:37:000.1[facility] HermannHEMATOLOGY 2020-08-29 10:37:001+ *ABN*(08/29/20 5:37 AM)[facility] DliohplNPVGHWSHMG4144-42-59 10:37:00Not Detected (08/29/20 5:37 AM)[facility] HermannBLOOD BANK RESULTS 2020-08-29 10:37:00Negative (08/29/20 5:37 AM)[facility] HermannCHEM MROZU8785-54-03 10:37:04629Yesmgvag HermannCHEM JOANY3237-49-39 10:37:0028[facility] HermannCHEM EOVOR9984-42-87 10:37:001.01[facility] HermannCHEM TJTZT5987-92-85 10:37:04650 [facility] HermannCHEM AXKOM1719-11-70 10:37:003.8[facility] HermannCHEM PANEL 2020-08-29 10:37:67110Zllazaqe HermannCHEM BWZYO2863-32-15 10:37:0028[facility] HermannCHEM IGDQT7181-53-43 10:37:009.8[facility] HermannCHEM AEXXN8334-95-11 10:37:0011.8[facility] HermannCHEM SMJXU5055-31-79 10:37:0059[facility] HermannCHEM CYHRD4949-45-82 10:37:002.9[facility] RkvgvnvKVBCEDBBPP7069-17-17 10:37:006.8 [facility] SzmavqyUUJFBOXXFK9093-02-74 10:37:004.47[facility] HermannHEMATOLOGY 2020-08-29 10:37:0010.6[facility] UajsgvvTNLIBXRLIS2460-63-58 10:37:0034.0[facility] UwkjkoyTTKUSRFQEJ6383-76-72 10:37:0076.1[facility] TknzoxfOSUVKREGRN3496-24-69 10:37:00 Test Item Value Reference Range Interpretation Comments MCH (test code = MCH) 23.8 pg 27.0-31.0 [facility] XxsjjokNPEAHNGNOL1168-46-17 10:37:0031.3[facility] HermannHEMATOLOGY 2020-08-29 10:37:0018.2[facility] UrsogbrPRGPBAOCSX8202-20-98 10:37:90433Zqrorwcd KphgmllKAJZPMHZZY1164-51-59 10:37:007.5[facility] UdmkdzvYVCKSTIRRJ7463-67-26 10:37:00 Test Item Value Reference Range Interpretation Comments PT (test code = PT) 12.8 s 12.0-14.7 [facility] BmazkuaUOYUUKHOKX5647-00-40 10:37:00 Test Item Value Reference Range Interpretation Comments INR (test code = INR) 0.97 1 0.85-1.17 [facility] TasqgpgZIITEDTNOC8723-06-55 10:37:00 Test Item Value Reference Range Interpretation Comments PTT (test code = PTT) 25.0 s 22.9-35.8 [facility] BqywcbfAUOZIJVNPH9832-65-22 10:37:0070.5[facility] HermannHEMATOLOGY 2020-08-29 10:37:0018.8[facility] KabrmajROFFEHSIVH6136-27-51 10:37:009.5[facility] AhxgfgjVHXRMZVESE4252-00-91 10:37:000.9[facility] YamnkmuNHXQCGWAPN9450-37-87 10:37:000.3[facility] RqhvefoHHWWQTPEPN8083-34-67 10:37:004.8[facility] JKOHNDZBTV9558-62-24 10:37:001.3[facility] BfeefalOKXRSLMYBB5789-81-56 10:37:000.6 [facility] KvvhngbLDDZELNDXJ0134-61-90 10:37:000.1[facility] HermannHEMATOLOGY 2020-08-29 10:37:001+ *ABN*(08/29/20 5:37 AM)[facility] EarncmnZZMENYTYEW1831-16-05 10:37:00Not Detected (08/29/20 5:37 AM)[facility]annBLOOD BANK RESULTS 2020-08-29 10:37:00Negative (08/29/20 5:37 AM)[facility] HermannCHEM OVTKS7799-93-37 10:37:39787Injpnhjp HermannCHEM RPBGG7858-24-04 10:37:0028[facility]annCHEM HFTBR4689-83-64 10:37:001.01[facility] HermannCHEM AOSBK5165-62-62 10:37:70206 [facility]annCHEM GMSJD3116-56-59 10:37:003.8[facility] HermannCHEM PANEL 2020-08-29 10:37:77068Mlcrlgcx HermannCHEM HMUFF1443-85-96 10:37:0028[facility] HermannCHEM ZRFKI3999-39-14 10:37:009.8[facility] HermannCHEM TJZNR4794-01-87 10:37:0011.8[facility] HermannCHEM RJHML8302-46-45 10:37:0059[facility] HermannCHEM ZSQBR2924-12-87 10:37:002.9[facility] ElmognmTJQBLZGARU8962-80-21 10:37:006.8 [facility] MhhdfpiRTUXMBHGZD4527-79-73 10:37:004.47[facility] HermannHEMATOLOGY 2020-08-29 10:37:0010.6[facility] IpdzkybWIZGJHWIWI6157-89-47 10:37:0034.0[facility] FwijisaSRBSAFBYWC9601-24-88 10:37:0076.1[facility] CmxlaooHQEQVOOEKV4059-12-73 10:37:00 Test Item Value Reference Range Interpretation Comments MCH (test code = MCH) 23.8 pg 27.0-31.0 [facility] QzrjqwaGCJIOKUMGA7446-49-89 10:37:0031.3[facility] HermannHEMATOLOGY 2020-08-29 10:37:0018.2[facility] HsmsilhPAUPAJGECJ7021-30-00 10:37:19678Eqrwlbmg NtgkyjkEKXEKOEHXM8793-77-15 10:37:007.5[facility] YgnakjtXAPCYFWHXS0843-62-86 10:37:00 Test Item Value Reference Range Interpretation Comments PT (test code = PT) 12.8 s 12.0-14.7 [facility] KxabsixXDTKDWKVRN8706-36-45 10:37:00 Test Item Value Reference Range Interpretation Comments INR (test code = INR) 0.97 1 0.85-1.17 [facility] FzuwdknDONDMKKCZO0222-04-69 10:37:00 Test Item Value Reference Range Interpretation Comments PTT (test code = PTT) 25.0 s 22.9-35.8 [facility] [id number] 10:37:0070.5[facility] 2020-[facility]-29 10:37:0018.8[facility] [id number] 10:37:009.5[facility] [id number] 10:37:000.9[facility] [id number] 10:37:000.3[facility] [id number] 10:37:004.8[facility] [id number] 10:37:001.3[facility] [id number] 10:37:000.6 [facility] [id number] 10:37:000.1[facility] 2020-08-29 10:37:001+ *ABN*(08/29/20 5:37 AM)[id number] 10:37:00Not Detected (08/29/20 5:37 AM)[facility] CenterDI, GC, TV,PCR, IN [id number] 15:38:00 Test Item Value Reference Range Interpretation Comments FT (test code = CHTR) Not detected (qualifier Not Detected N value) FT (test code = Not detected (qualifier Not Detected N NGONO) value) FT (test code = TRVG) Not detected (qualifier Not Detected N value) [facility] WITH [id number] 10:57:00 Test Item Value Reference Range Interpretation Comments Color (test code = UCOLR) Dk. Yellow Clarity (test code = UCLAR) Hazy Glucose (test code = UGLUC) NEGATIVE NEGATIVE N Bilirubin (test code = UBILI) NEGATIVE NEGATIVE N Ketones (test code = UKET) NEGATIVE NEGATIVE N Specific [place] (test code = 1.025 1.005-1.030 A USPGR) [...] = None Seen None Seen N URCRYS) [facility]"
[2022-03-18] MEDS ORDERED: NA CHLORIDE 0.9% 1,000 ML ONE (10:20)
[2022-03-18 11:09] LABS: Absolute Lymphocytes (CBC) 1.1 K/uL (0.7-4.9); Hematocrit 39.7 % (36.0-45.0); Lymphocytes % 20.2 % (15.3-44.8); MCV 93.1 fL (80-100); MPV 7.1 fL (7.6-11.3); RBC Red Blood Cell Count 4.27 M/uL (3.86-4.86)
[2022-03-18 11:12] LABS: Protime INR 0.93
--- NOTE | 2022-03-18 11:22 | RAD REPORT ---
EXAM DESCRIPTION: RAD - Chest Single View - 03/18/2022 11:15 am CLINICAL HISTORY: COUGH COMPARISON: Chest Single View dated 03/11/2022; Chest Single View dated 02/26/2022; Chest Single View dated 02/01/2022; Chest Single View dated 01/30/2022; Chest Single View dated 10/01/2021 FINDINGS: Lines: None. Lungs: No evidence of edema or pneumonia. Pleural: No significant pleural effusions or pneumothorax. Cardiac: Cardiomegaly which is similar. Mediastinum: Within normal limits. Bones: No acute fractures. Bilateral shoulder arthroplasties. Other: None IMPRESSION: No acute cardiopulmonary disease.
[2022-03-18 11:26] LABS: ALT/SGPT 29 U/L (12-78); Albumin 3.5 g/dL (3.4-5.0); Alkaline Phosphatase 84 U/L (45-117); BUN Blood Urea Nitrogen 32 mg/dL (7-18); Bicarbonate 25 mmol/L (21-32); Bilirubin Total 0.6 mg/dL (0.2-1.0); Glomerular Filtration Rate 42 ml/min (=/>90); Glucose Level 125 mg/dL (74-106); Lipase 234 U/L (73-393); NT PRO-BNP 1765 pg/mL (<125); Protein, Total 7.4 g/dL (6.4-8.2); Sodium Level 139 mmol/L (136-145); Troponin High Sensitivity 12.2 pg/mL (<58.9)
[2022-03-18 11:30] LABS: AST/SGOT 32 U/L (15-37); Bilirubin Direct < 0.1 mg/dL (0-0.2); Magnesium 2.4 mg/dL (1.8-2.4); Potassium 3.6 mmol/L (3.5-5.1)
[2022-03-18 12:17] LABS: Urine Blood Negative (Negative); Urine Glucose Negative (Negative); Urine Protein Negative (Negative); Urine Specific Gravity 1.025 (1.005-1.030); Urine pH 5.5 (5.0-7.0)
[2022-03-18 12:42] LABS: Urine Mucus Slight /HPF (None Seen); Urine RBC <5 /HPF (None Seen)
[2022-03-18] MEDS ORDERED: MORPHINE 2 MG/ML SYR ONE (12:42)
[2022-03-18] MEDS ORDERED: HYDRALAZINE HCL 25 MG TABLET ONE (14:36)
[2022-03-18] MEDS ORDERED: HYDROCODONE/APAP 10/325 TAB ONE (14:37)
--- NOTE | 2022-03-18 14:47 | ER ---
Nurse's Notes [facility] Name: Marjan Kolb Age: 67 yrs Sex: Female : 1955 Arrival Date: 03/18/2022 Time: 10:00 Bed 19 Private MD: Lele Rahman H Diagnosis: Essential (primary) hypertension Presentation: 03/18 10:18 Chief complaint: Patient states: Blood in urine X 1 week. HTN getting worse over the ld1 past month. Coronavirus screen: At this time, the client does not indicate any symptoms associated with coronavirus-19. Ebola Screen: No symptoms or risks identified at this time. Initial Sepsis Screen: Does the patient meet any 2 criteria? No. Patient's initial sepsis screen is negative. Does the patient have a suspected source of infection? No. Patient's initial sepsis screen is negative. Risk Assessment: Do you want to hurt yourself or someone else? Patient reports no desire to harm self or others. Onset of symptoms was March 18, 2022. 10:18 Method Of Arrival: Ambulatory ld1 10:18 Acuity: BLAYNE 3 ld1 Triage Assessment: 10:19 General: Appears in no apparent distress. comfortable, Behavior is calm, cooperative, ld1 appropriate for age. Pain: Denies pain. EENT: No signs and/or symptoms were reported regarding the EENT system. Neuro: Level of Consciousness is awake, alert, obeys commands, Oriented to person, place, time, situation. Cardiovascular: Capillary refill < 3 seconds Patient's skin is warm and dry. Respiratory: Airway is patent Respiratory effort is even, unlabored. GI: Abdomen is round non-distended. : No signs and/or symptoms were reported regarding the genitourinary system. Derm: No signs and/or symptoms reported regarding the dermatologic system. Musculoskeletal: No signs and/or symptoms reported regarding the musculoskeletal system. Historical: - Allergies: 10:19 Bactrim DS; ld1 10:19 butorphanol tartrate; ld1 10:19 Fentanyl; ld1 10:19 Reglan; ld1 10:19 Stadol; ld1 10:19 sulfamethoxazole (bulk); ld1 10:19 TRIMETHOPRIM; ld1 - PMHx: 10:19 Anxiety; Atrial Fib; Bipolar disorder; Chronic pain; COPD; esophageal varices; ld1 Hepatitis; HIV; Hypertension; Migraines; Panic Attacks; - PSHx: 10:19 Appendectomy; Bilateral shoulder repair; Cholecystectomy; hernia repair; R wrist SX; ld1 - Immunization history:: Adult Immunizations up to date. - Social history:: Smoking status: Patient/guardian denies using tobacco, Patient/guardian denies using alcohol. Screenin:40 Abuse screen: Denies threats or abuse. Denies injuries from another. Nutritional mb8 screening: No deficits noted. Tuberculosis screening: No symptoms or risk factors identified. Fall Risk No fall in past 12 months (0 pts). Secondary diagnosis (15 points) No IV (0 pts). Ambulatory Aid- None/Bed Rest/Nurse Assist (0 pts). Gait- Normal/Bed Rest/Wheelchair (0 pts) Mental Status- Oriented to own ability (0 pts). Total Hauser Fall Scale indicates Low Risk Score (25-44 pts). Fall prevention measures have been instituted. Side Rails Up X 2 Placed close to Nursing Station As available Patient and Family Educated on Fall Prevention Program and strategies. Assessment: 10:39 General: Appears in no apparent distress. Behavior is calm, cooperative, appropriate mb8 for age. Pain: Denies pain. : Reports burning with urination, urinary frequency. 10:45 General: staff pharmacist hospital attempting IV access. mb8 11:37 Reassessment: Patient and/or family updated on plan of care and expected duration. Pain mb8 level reassessed. Patient is alert, oriented x 3, equal unlabored respirations, skin warm/dry/pink. Vital Signs: 10:18 BP 227 / 108; Pulse 55; Resp 18; Temp 97.6(O); Pulse Ox 98% on R/A; Weight 78.47 kg; ld1 Height 5 ft. 4 in. (162.56 cm); Pain 0/10; 10:30 BP 199 / 77; Pulse 54; mb8 10:45 BP 192 / 83; Pulse 51; mb8 11:22 BP 177 / 92; Pulse 60; Pulse Ox 98% on R/A; mb8 11:36 BP 187 / 80; Pulse 52; Pulse Ox 100% on R/A; mb8 12:00 BP 165 / 90; Pulse 56; Resp 16; Pulse Ox 97% on R/A; mb8 13:51 BP 197 / 93; Pulse 51; Resp 20; Pulse Ox 98% on R/A; mb8 14:30 BP 213 / 102; Pulse 63; Resp 18; Pulse Ox 98% ; Pain 8/10; mb8 15:15 BP 187 / 88; Pulse 67; Resp 16; Pulse Ox 97% ; Pain 6/10; mb8 10:18 Body Mass Index 29.70 (78.47 kg, 162.56 cm) ld1 ED Course: 10:00 Patient arrived in ED. mr 10:01 Lele Rahman DO is Private Physician. mr 10:15 Justus Kolb MD is Attending Physician. thomas 10:17 Karan Gerber RN is Primary Nurse. mb8 10:19 Triage completed. ld1 10:19 Arm band placed on right wrist. ld1 10:28 Missed attempt(s): 20 gauge in left antecubital area. Bleeding controlled, band aid mb8 applied, catheter tip intact. 10:30 Missed attempt(s): 22 gauge in left hand. Bleeding controlled, band aid applied, mb8 catheter tip intact. 10:33 Missed attempt(s): 22 gauge in right upper arm. Bleeding controlled, band aid applied, mb8 catheter tip intact. Missed attempt(s): Bleeding controlled, band aid applied, catheter tip intact. 10:40 Patient has correct armband on for positive identification. Placed in gown. Bed in low mb8 position. Call light in reach. Side rails up X2. Client placed on continuous cardiac and pulse oximetry monitoring. NIBP monitoring applied. telemetry monitor on. 10:40 No provider procedures requiring assistance completed. mb8 11:17 XRAY Chest (1 view) In Process Unspecified. EDMS 12:18 Urine Microscopic Only Sent. kb3 14:45 Lele Rahman DO is Referral Physician. thomas 14:45 Per Crane MD is Referral Physician. thomas 15:40 IV discontinued, intact, bleeding controlled, No redness/swelling at site. Pressure mb8 dressing applied. Administered Medications: 11:32 Drug: NS 0.9% 1000 ml Route: IV; Rate: 125 ml/hr; Site: Other; mb8 15:30 Follow up: IV Status: Order to discontinue infusion mb8 12:44 Drug: morphine 2 mg Route: IVP; Infused Over: 4 mins; Site: Other; mb8 14:32 Follow up: Response: Pain is unchanged, physician notified mb8 14:33 Not Given (Duplicate Order): Rocephin (cefTRIAXone) 1 grams IV at per protocol once; thomas Given slow IV push per pharmacy instructions 14:42 Drug: HydrALAZINE 25 mg Route: PO; mb8 15:49 Follow up: Response: No adverse reaction mb8 14:42 Drug: [place] (HYDROcodone-acetaminophen) 10 mg-325 mg 1 tabs Route: PO; mb8 15:49 Follow up: Response: No adverse reaction; Pain is decreased; RASS: Alert and Calm (0) mb8 Medication: 10:40 VIS not applicable for this client. mb8 Outcome: 14:46 Discharge ordered by . thomas 15:48 Discharged to home ambulatory. mb8 15:48 Condition: stable 15:48 Discharge instructions given to patient, Instructed on discharge instructions, follow up and referral plans. medication usage, Demonstrated understanding of instructions, follow-up care, medications, Prescriptions given X 1. 15:51 Patient left the ED. mb8 Signatures: Dispatcher [employer] EDMS Justus Kolb MD MD cha Rivera, Mary mr Wanda Rust, RN RN ld1 Ava Mabry, RN RN kb3 Karan Gerber, RN RN mb8 Corrections: (The following items were deleted from the chart) 11:00 10:30 Missed attempt(s): 20 gauge in left hand. mb8 mb8 11:01 10:30 Missed attempt(s): 22 gauge in left hand. mb8 mb8 11:01 10:28 Missed attempt(s): 20 gauge in left antecubital area. mb8 mb8
--- NOTE | 2022-03-18 14:47 | EDPHYS ---
Physician Documentation [facility] Name: Marjan Kolb Age: 67 yrs Sex: Female : 1955 Arrival Date: 03/18/2022 Time: 10:00 Bed 19 Private MD: Lele Rahman H ED Physician Justus Kolb HPI: 03/18 14:39 This 67 yrs old Female presents to ER via Ambulatory with complaints of High thomas Blood Pressure, Urinary Problem. 14:39 This 67 yrs old Female presents to ER via Ambulatory with complaints of High thomas Blood Pressure, Urinary Problem. 14:39 The patient has elevated blood pressure and discovered this at home. Onset: The thomas symptoms/episode began/occurred just prior to arrival, this morning. Modifying factors: The symptoms are aggravated by activity, The symptoms are alleviated by remaining still. Historical: - Allergies: 10:19 Bactrim DS; ld1 10:19 butorphanol tartrate; ld1 10:19 Fentanyl; ld1 10:19 Reglan; ld1 10:19 Stadol; ld1 10:19 sulfamethoxazole (bulk); ld1 10:19 TRIMETHOPRIM; ld1 - PMHx: 10:19 Anxiety; Atrial Fib; Bipolar disorder; Chronic pain; COPD; esophageal varices; ld1 Hepatitis; HIV; Hypertension; Migraines; Panic Attacks; - PSHx: 10:19 Appendectomy; Bilateral shoulder repair; Cholecystectomy; hernia repair; R wrist SX; ld1 - Immunization history:: Adult Immunizations up to date. - Social history:: Smoking status: Patient/guardian denies using tobacco, Patient/guardian denies using alcohol. ROS: 14:44 Constitutional: Negative for fever, chills, and weight loss, Eyes: Negative for injury, thomas pain, redness, and discharge, ENT: Negative for injury, pain, and discharge, Neck: Negative for injury, pain, and swelling, Cardiovascular: Negative for chest pain, palpitations, and edema, Respiratory: Negative for shortness of breath, cough, wheezing, and pleuritic chest pain, Abdomen/GI: Negative for abdominal pain, nausea, vomiting, diarrhea, and constipation, Back: Negative for injury and pain, : Negative for injury, bleeding, discharge, and swelling, MS/Extremity: Negative for injury and deformity, Skin: Negative for injury, rash, and discoloration, Neuro: Negative for headache, weakness, numbness, tingling, and seizure, Psych: Negative for depression, anxiety, suicide ideation, homicidal ideation, and hallucinations, Allergy/Immunology: Negative for hives, rash, and allergies, Endocrine: Negative for neck swelling, polydipsia, polyuria, polyphagia, and marked weight changes, Hematologic/Lymphatic: Negative for swollen nodes, abnormal bleeding, and unusual bruising. Exam: 14:44 Constitutional: This is a well developed, well nourished patient who is awake, alert, thomas and in no acute distress. Head/Face: Normocephalic, atraumatic. Eyes: Pupils equal round and reactive to light, extra-ocular motions intact. Lids and lashes normal. Conjunctiva and sclera are non-icteric and not injected. Cornea within normal limits. Periorbital areas with no swelling, redness, or edema. ENT: Nares patent. No nasal discharge, no septal abnormalities noted. Tympanic membranes are normal and external auditory canals are clear. Oropharynx with no redness, swelling, or masses, exudates, or evidence of obstruction, uvula midline. Mucous membranes moist. Neck: Trachea midline, no thyromegaly or masses palpated, and no cervical lymphadenopathy. Supple, full range of motion without nuchal rigidity, or vertebral point tenderness. No Meningismus. Chest/axilla: Normal chest wall appearance and motion. Nontender with no deformity. No lesions are appreciated. Cardiovascular: Regular rate and rhythm with a normal S1 and S2. No gallops, murmurs, or rubs. Normal PMI, no JVD. No pulse deficits. Respiratory: Lungs have equal breath sounds bilaterally, clear to auscultation and percussion. No rales, rhonchi or wheezes noted. No increased work of breathing, no retractions or nasal flaring. Back: No spinal tenderness. No costovertebral tenderness. Full range of motion. Skin: Warm, dry with normal turgor. Normal color with no rashes, no lesions, and no evidence of cellulitis. MS/ Extremity: Pulses equal, no cyanosis. Neurovascular intact. Full, normal range of motion. Neuro: Awake and alert, GCS 15, oriented to person, place, time, and situation. Cranial nerves II-XII grossly intact. Motor strength 5/5 in all extremities. Sensory grossly intact. Cerebellar exam normal. Normal gait. Psych: Awake, alert, with orientation to person, place and time. Behavior, mood, and affect are within normal limits. 14:44 Musculoskeletal/extremity: DVT Exam: No signs of deep vein thrombosis. no pain, no swelling, no tenderness, negative Homans' sign noted on exam, no appreciated bluish discoloration, no erythema, no increased warmth. Vital Signs: 10:18 BP 227 / 108; Pulse 55; Resp 18; Temp 97.6(O); Pulse Ox 98% on R/A; Weight 78.47 kg; ld1 Height 5 ft. 4 in. (162.56 cm); Pain 0/10; 10:30 BP 199 / 77; Pulse 54; mb8 10:45 BP 192 / 83; Pulse 51; mb8 11:22 BP 177 / 92; Pulse 60; Pulse Ox 98% on R/A; mb8 11:36 BP 187 / 80; Pulse 52; Pulse Ox 100% on R/A; mb8 12:00 BP 165 / 90; Pulse 56; Resp 16; Pulse Ox 97% on R/A; mb8 13:51 BP 197 / 93; Pulse 51; Resp 20; Pulse Ox 98% on R/A; mb8 14:30 BP 213 / 102; Pulse 63; Resp 18; Pulse Ox 98% ; Pain 8/10; mb8 15:15 BP 187 / 88; Pulse 67; Resp 16; Pulse Ox 97% ; Pain 6/10; mb8 10:18 Body Mass Index 29.70 (78.47 kg, 162.56 cm) ld1 MDM: 10:15 Patient medically screened. thomas 14:47 Differential diagnosis: UTI, hypertensive crisis, Malignant HTN. Data reviewed: vital thomas signs, nurses notes, lab test result(s), EKG, radiologic studies, plain films. Data interpreted: bus monitor: rate is 63 beats/min, rhythm is regular, Pulse oximetry: on room air is 98 %. Test interpretation: by ED physician or midlevel provider: ECG, plain radiologic studies. Counseling: I had a detailed discussion with the patient and/or guardian regarding: the historical points, exam findings, and any diagnostic results supporting the discharge/admit diagnosis, lab results, radiology results, the need for outpatient follow up, for definitive care, a biomedical photographer, a family practitioner. 03/18 10:16 Order name: Basic Metabolic Panel; Complete Time: 14:17 [facility] 03/18 10:16 Order name: CBC with Diff; Complete Time: 14:17 [facility] 03/18 10:16 Order name: LFT's; Complete Time: 14:17 [facility] 03/18 10:16 Order name: Magnesium; Complete Time: 14:17 [facility] 03/18 10:16 Order name: NT PRO-BNP; Complete Time: 14:17 [facility] 03/18 10:16 Order name: PT-INR; Complete Time: 14:17 [facility] 03/18 10:16 Order name: Troponin HS; Complete Time: 14:17 [facility] 03/18 10:16 Order name: XRAY Chest (1 view); Complete Time: 14:17 [facility] 03/18 10:16 Order name: Urine Microscopic Only; Complete Time: 14:17 [facility] 03/18 10:17 Order name: Lipase; Complete Time: 14:17 [facility] 03/18 12:17 Order name: Urine Dipstick-Ancillary; Complete Time: 14:17 [facility] 03/18 10:16 Order name: EKG; Complete Time: 10:17 [facility] 03/18 10:16 Order name: Cardiac monitoring; Complete Time: 11:32 [facility] 03/18 10:16 Order name: EKG - Nurse/Tech; Complete Time: 11:33 [facility] 03/18 10:16 Order name: IV Saline Lock; Complete Time: 11:33 [facility] 03/18 10:16 Order name: Labs collected and sent; Complete Time: 11:33 [facility] 03/18 10:16 Order name: O2 Per Protocol; Complete Time: 11:33 [facility] 03/18 10:16 Order name: O2 Sat Monitoring; Complete Time: 11:33 [facility] 03/18 10:16 Order name: Urine Dipstick-Ancillary (obtain specimen); Complete Time: 12:18 [facility] Administered Medications: 11:32 Drug: NS 0.9% 1000 ml Route: IV; Rate: 125 ml/hr; Site: Other; mb8 15:30 Follow up: IV Status: Order to discontinue infusion mb8 12:44 Drug: morphine 2 mg Route: IVP; Infused Over: 4 mins; Site: Other; mb8 14:32 Follow up: Response: Pain is unchanged, physician notified mb8 14:33 Not Given (Duplicate Order): Rocephin (cefTRIAXone) 1 grams IV at per protocol once; thomas Given slow IV push per pharmacy instructions 14:42 Drug: HydrALAZINE 25 mg Route: PO; mb8 15:49 Follow up: Response: No adverse reaction mb8 14:42 Drug: [place] (HYDROcodone-acetaminophen) 10 mg-325 mg 1 tabs Route: PO; mb8 15:49 Follow up: Response: No adverse reaction; Pain is decreased; RASS: Alert and Calm (0) mb8 Disposition Summary: 03/18/22 14:46 Discharge Ordered Location: Home thomas Problem: new thomas Symptoms: have improved thomas Condition: Stable thomas Diagnosis - Essential (primary) hypertension thomas Followup: thomas - With: Lele Rahman DO - When: 2 - 3 days - Reason: Recheck today's complaints, Continuance of care, Re-evaluation by your physician Followup: thomas - With: Per Crane MD - When: 2 - 3 days - Reason: Recheck today's complaints, Re-evaluation by your physician Discharge Instructions: - Discharge Summary Sheet thomas - Hypertension, Adult thomas - Hypertension, Adult, [id number] thomas - How to Take Your Blood Pressure, Casp-[id number] thomas - Managing Your Hypertension thomas Forms: - Medication Reconciliation Form thomas - Thank You Letter thomas - Antibiotic Education thomas - Prescription Opioid Use thomas Prescriptions: - Hydralazine 25 mg Oral Tablet - take 1 tablet by ORAL route 3 times per day with food; 45 tablet; Refills: 0, thomas Product Selection Permitted Signatures: Dispatcher [employer] Justus Long MD MD cha Dibbern, Lauren, RN RN ld1 Ava Mabry RN RN kb3 Karan Gerber, RN RN mb8
[2022-03-18 16:25] VITALS: TEMP 97.6
[2022-03-18 16:34] VITALS: BP 187/88; O2SAT 97
== END 2022-03-18 15:51 | disposition home or self-care (01) ==
LOC: ER 09:56
DX: I10 Essential (primary) hypertension (principal); R30.0 Dysuria; R05.9 Cough, unspecified
CPT/HCPCS: 96361; 93005; 85025; 80048; 36415; 83735; 85610; 80076; 84484; 83690; 83880; 71045; 96374; 99284; J2270; J7030; 81003; 81015

== ENCOUNTER 2022-04-08 17:03 | Emergency (ER) | payer OTHER ==
--- OUTSIDE RECORDS SUMMARY | 2022-04-08 17:17 | XMS REPORT | Continuity of Care Document ---
:1955 Author Organization [facility] t Address [address] [place] [address] Care Team Providers Name Role Phone Urmila Rahman Primary Care Physician ELAN LIRA Attending Clinician Unavailable KINJAL, BEVERLY Attending Clinician Unavailable SANTIAGO CARDENAS Attending Clinician Unavailable UNKNOWN, ATTENDING Attending Clinician Unavailable Robbi Bal Attending Clinician [facility] Attending Clinician Unavailable Santiago Sanchez Attending Clinician Stevo RAMIREZ, Isaias Arredondo Attending Clinician Unavailable TOMY MARIE Attending Clinician Unavailable Reilly Means MD Attending Clinician Ofe Shields MD Attending Clinician Tomy Marie MD Attending Clinician Doctor Unassigned, [place] Attending Clinician Unavailable Bill COLES Attending Clinician Unavailable Bill Rose Attending Clinician CHARITY MCALLISTER Attending Clinician Unavailable Charity Mcallister MD Attending Clinician GADIEL KOEHLER Attending Clinician Unavailable Mike Lund Attending Clinician Unavailable NIKOLAI REEVES Attending Clinician Unavailable Eliseo Arce MD Attending Clinician Carol Ann DIRECTOR EXPERIMENTAL MEDICINE, Sarai Lieberman Attending Clinician [phone] Ashly Pelletier MA Attending Clinician Unavailable Dagoberto Bass MD Attending Clinician [place] Evangelista Attending Clinician Lab, Adc [facility] Pob I Attending Clinician Unavailable Monica Rodas MA Attending Clinician Unavailable Agustina Ortiz MA Attending Clinician Unavailable Andrez RAMIREZ, Rody Attending Clinician Unavailable Kirit Flood MD, V. Attending Clinician HEMATPOLIZ, BEVERLY Attending Clinician Unavailable Gloria Hinojosa Attending Clinician Michael Hagen RN Attending Clinician Unavailable Vani, [facility] Attending Clinician UnavailDO PORSHA Newell Attending Clinician Unavailable Gadiel Koehler MD Attending Clinician Eveline Hansen MD Attending Clinician Eladio [place] RN Attending Clinician Unavailable Leyda Willis Attending Clinician [phone] Stefanie Montalvo RN Attending Clinician Unavailable TOMY MARIE Admitting Clinician Unavailable Tomy Marie MD Admitting Clinician Bill COLES Admitting Clinician Unavailable Lele Rahman Admitting Clinician Unavailable Mike Lund Admitting Clinician Unavailable ELISEO ARCE Admitting Clinician Unavailable DO PORSHA STREETER Admitting Clinician Unavailable Payers Payer Name Policy Type Policy Number Effective Date Expiration Date S gabino [facility] COMM[facility] [id number] 2012 STAR PLUS OON 00:00:00 [facility] [id number] 2019 DUAL COMPLETE HMO 00:00:00 [facility] [id number] 2019 PLUS 00:00:00 MEDICAID [facility] [id number] 2020 00:00:00 [facility] [id number] 2019 [facility] 00:00:00 [employer] MEDICARE ADV [id number] 2019 2019 00:00:00 00:00:00 Problems Condition Condition Condition Status Onset Resolution Last Treating Co mments Source Name Details Category Date Date Treatment Clinician Date Dyspnea, Dyspnea, Disease Active Unive rs unspecifie unspecifie 02-11 it y of d type d type 00:00: [address] Gastropare Gastropare Disease Active Overview : Methodi sis sis 4-[address] 00:00: [facility] note l might be different from the original. Added automatic ally from request for surgery [id number] Dysphagia Dysphagia Disease Active Overview: Methodi 4-[address] 00:00: [facility] this [facility] 00 note l might be different from the original. Added automatic ally from request for surgery [id number] CCL / EPS CCL / EPS Diagnosis Active 2020-10-15 Memoria PVI PVI 08-19 17:07:00 l ABLATION ABLATION 00:00: Patel n W/ CARTO / W/ CARTO / 00 GA / T GA / T Active 08/19/2020 [facility] [place] Food Food Disease Active 2019-05 Methodi intoleranc [...] 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:00: [place] shoulder [...] 1-25 Clear 00:00: Garcia 00 [facility] trimetho DA Active [facility] prim 1-25 Clear 00:00: Garcia 00 [facility] codeine DA Active SV N/V [facility] 1-25 Clear 00:00: Garcia 00 [facility] Metoclop Propensi Active [place] ramide ty [...] nknown reaction FENTANYL DRUG Active High Hives 2017- Univers [...] s to drug METOCLOP DRUG Active Unknown-Cmnt 2017-0 Un matt RAMIDE INGREDI 1-06 ity of [...] Comments Start Date Stop Date Source Natural [facility] Social History Social Habit Start Date Stop Date Quantity Comments Source History SDOH [facility] Frequency Hospita l History SDOH [facility] Alcohol Std Drinks Hospit al History SDOH [facility] Tobacco use and 2022-02-11 2022-02-11 Former smokeless Uni versity of exposure 00:00:00 00:00:00 tobacco user [facility] [place] [facility] [place] Tobacco Comment 2022-02-11 2022-02-11 Smokes approx 1-2 Un iversity of 00:00:00 00:00:00 cigarettes per [place] [facility] porfirio day when she Branch smokes Exposure to 2022-01-31 2022-02-10 Not sure [facility] SARS-CoV-2 (event) 00:00:00 22:53:00 [facility] Alcohol intake 2020-12-08 2020-12-08 Current drinker [facility] 00:00:00 00:00:00 of alcohol Hospital (finding) Cigarettes smoked 2020-09-05 2020-09-[address] current (pack [facility] 00:00[facility] - Reported Cigarette 2020-09-05 2020-09-05 [facility] pack-years 00:00:00 00:00:00 Hospital Alcohol Comment 2016-09-23 2016-09-23 rare [facility] 00:00:00 00:00:00 Hospital History of tobacco 2011-09-29 User of smokeless University of use 00:00:00 tobacco [facility] Sex Ass[birth year] At [birth year] [facility] 00:00:00 00:00:00 Smoking Status Start Date Stop Date Source Ex-smoker 2022-02-11 00:00:00 2022-02-11 00:00:00 [facility] Medications Ordered Filled Start Stop Current Ordering Indication Dosage Frequency Signature Comments Components Source Medication Medication Date Date Medication? Clinician (SIG) Name Name zoster 2021-05- Yes [id number] .5mL 0.5 mL by [facility], 0-14 [id number] [id number] Intramuscu ity of recombinant 00:00: 04:59 lar route [place] (SHINGRIX, 00 :00 once now Medic al PF,) for 1 Branch injection dose. And repeat in 2-6 months hydralAZINE Yes 25mg Take 25 mg Univers (APRESOLINE 9- by mouth ity of ) 25 mg 19:28: daily. [place] tablet Medical Branch lisinopril Yes 40mg Take 40 mg U nivers (PRINIVIL,Z 9-27 by mouth 2 it y of ESTRIL) 40 19:28: (two) [place] mg tablet 04 times Medical daily. Branch metoprolol Yes 100mg Take 100 Un matt tartrate 9-27 mg by ity of (LOPRESSOR) 19:28: mouth 2 [place] 100 mg 04 (two) Medical tablet times [place] daily. amLODIPine 2021-0 Yes 10mg Take 10 mg U nivers (NORVASC) 9-27 by mouth ity of 10 mg 19:28: daily. [place] tablet 04 Medical Branch clonazePAM 2021-0 Yes 1mg Take 1 mg Un matt (KLONOPIN) 9-27 by mouth ity o f 1 mg tablet 19:28: at [place] [address] bedtime. Medical Branch traZODone 2021-0 Yes 50mg Take 50 mg Un matt 100 mg 9-27 by mouth ity of tablet 19:28: at [place] [address] bedtime. Medical Branch hydralAZINE 2021-0 Yes 25mg [...] 100 mg 04 (two) Medical tablet times [place] daily. amLODIPine 2021-0 Yes 10mg Take 10 mg U nivers (NORVASC) 9-27 by mouth ity of 10 mg 19:28: daily. [place] tablet 04 Medical Branch clonazePAM 2021-0 Yes 1mg Take 1 mg Un matt (KLONOPIN) 9-27 by mouth ity o f 1 mg tablet 19:28: at [place] [address] bedtime. Medical Branch traZODone 2021-0 Yes 50mg Take 50 mg Un matt 100 mg 9-27 by mouth ity of tablet 19:28: at [place] [address] bedtime. Medical Branch hydralAZINE 2021-0 Yes 25mg Take 25 mg Univers (APRESOLINE 9-27 by mouth ity of ) 25 mg 19:28: daily. [place] tablet 04 Medical Branch lisinopril 2021-0 Yes 40mg Take 40 mg U nivers (PRINIVIL,Z 9-27 by mouth 2 it y of ESTRIL) 40 19:28: (two) [place] mg tablet 04 times Medical daily. Branch metoprolol 2-0 Yes 100mg Take 100 Un matt tartrate 9-27 mg by ity of (LOPRESSOR) 19:28: mouth 2 [place] 100 mg 04 (two) Medical tablet times Branch daily. amLODIPine 2-0 Yes 10mg Take 10 mg U nivers (NORVASC) 9-27 by mouth ity of 10 mg 19:28: daily. [place] tablet 04 Medical Branch clonazePAM 2021-0 Yes 1mg Take 1 mg Un matt (KLONOPIN) 9-27 by mouth ity o f 1 mg tablet 19:28: at [place] [address] bedtime. Medical Branch traZODone 2-0 Yes 50mg Take 50 mg Un matt 100 mg 9-27 by mouth ity of tablet 19:28: at [place] [address] bedtime. Medical Branch hydralAZINE 2021-0 Yes 25mg [...] 100 mg 04 (two) Medical tablet times [place] daily. amLODIPine 2021-0 Yes 10mg Take 10 mg U nivers (NORVASC) 9-27 by mouth ity of 10 mg 19:28: daily. [place] tablet 04 Medical Branch clonazePAM 2021-0 Yes 1mg Take 1 mg Un matt (KLONOPIN) 9-27 by mouth ity o f 1 mg tablet 19:28: at [place] [address] bedtime. Medical Branch traZODone 2-0 Yes 50mg Take 50 mg Un matt 100 mg 9-27 by mouth ity of tablet 19:28: at [place] [address] bedtime. Medical Branch hydralAZINE 2-0 Yes 25mg Take 25 mg Univers (APRESOLINE 9-27 by mouth ity of ) 25 mg 19:28: daily. [place] tablet 04 Medical Branch lisinopril Yes 40mg Take 40 mg U nivers (PRINIVIL,Z 02-16 by mouth 2 it y of ESTRIL) 40 19:28: (two) [place] mg tablet 04 times Medical daily. Branch metoprolol Yes 100mg Take 100 Un matt tartrate 9-27 mg by ity of (LOPRESSOR) 19:28: mouth 2 [place] 100 mg 04 (two) Medical tablet times [place] daily. amLODIPine Yes 10mg Take 10 mg U nivers (NORVASC) 9- by mouth ity of 10 mg 19:28: daily. [place] tablet 04 Medical Branch clonazePAM Yes 1mg Take 1 mg Un matt (KLONOPIN) 02-16 by mouth ity o f 1 mg tablet 19:28: at [place] [address] bedtime. Medical Branch traZODone Yes 50mg Take 50 mg Un matt 100 mg 02-16 by mouth ity of tablet 19:28: at [place] [address] bedtime. Medical Branch cefpodoxime 2021- Yes [id number] 200mg Take 1 Univers 200 mg 02-16 tablet by ity of tablet 00:00: 04:59 mouth in [place] 00 :00 the Medical morning Branch and 1 tablet in the evening. Do all this for 3 days. cefpodoxime 0 2021- Yes [id number] 200mg Take 1 Univers 200 mg 02-16 tablet by ity of tablet 00:00: 04:59 mouth in [place] 00 :00 the Medical morning Branch and 1 tablet in the evening. Do all this for 3 days. haloperidol 2021- No 2mg 2 mg, Slow Univers lactate 02-15 IV Push, ity of (HALDOL) 09:00: 09:12 ONCE, 1 [place] injection 2 00 :00 dose, On Medi porfirio mg Mon Branch 02/15/22 at 0400, Routine hydroCHLORO 0 Yes 25mg 25 mg, Univ ers thiazide 9-25 Oral, ity of (ESIDRIX) 14:00: DAILY, [place] capsule 25 00 First dose Med ical mg on Sun Branch 02/14/22 at 0900, Until Discontinu ed, Routine butalbital- 2022-0 Yes 1{tbl} 1 tablet, Univers acetaminoph 02-13 Oral, ity of en-caff 18:46: Q6HPRN, [place] (ESGIC) 06 Starting Medical 50-325-40 on [facility] Branch mg tablet 1 02/13/22 at tablet 1346, Until Discontinu ed, Routine, headaches dicyclomine 2021-0 Yes 10mg 10 mg, Univ ers (BENTYL) 02-13 Oral, QID, ity o f capsule 10 17:00: First dose [place] mg 00 on [facility] 02/13/22 at Branch 1200, Until Discontinu ed, Routine tiZANidine Yes 4mg 4 mg, Univer s (ZANAFLEX) 02-12 Oral, Q8H, ity of tablet 4 mg 19:00: First dose [place] 00 on Tue [facility] 02/12/22 at Branch 1400, Until Discontinu ed, Routine HYDROmorpho Yes 4mg 4 mg, Unive rs ne 02-12 Oral, ity of (DILAUDID) 17:37: Q6HPRN, [place] tablet 4 mg 07 Starting Medi porfirio on Tue [place] 02/12/22 at 1237, Until Discontinu ed, Routine, Pain (scale 4-6) morpHINE (2 2021- No 2mg 2 mg, Slow Univers mg/mL) 02-12 IV Push, ity of injection 2 17:36: 20:36 Q6HPRN, [place] mg 46 :24 Starting Medical on Tue [place] 02/12/22 at 1236, Until 02/14/22 at 1536, Routine, Pain (scale 7-10) cefTRIAXone 2021-0 202- No 2000mg 2,000 mg, Univers (ROCEPHIN) 02-12 [...] uration of Therapy: Other (see Comments) hydrALAZINE 0 Yes 75mg 75 mg, Univ ers (APRESOLINE 02-12 Oral, BID, it y of ) tablet 75 14:15: First dose [place] mg 00 (after Medical last Branch modificati on) on Tue02/12/22 at 0915, Until Discontinu ed, Routine pantoprazol 0 Yes 40mg 40 mg, Univ ers e [...] 00 :00 dose, On Medic al mg [place] Branch 02/11/22 at 1645, Routine nitroglycer 0 Yes .4mg 0.4 mg, Uni vers in 02-11 Sublingual ity of (NITROSTAT) 21:31: , Q5MIN [place] sublingual 20 PRN, Medical tablet 0.4 Starting Branc h mg on [place] 02/11/22 at 1631, Until Discontinu ed, Routine, Chest pain cloNIDine 2022-0 Yes .1mg 0.1 mg, Unive rs (CATAPRES) 02-11 Oral, ity of tablet 0.1 21:18: TIDPRN, [place] mg 37 Starting Medical on [facility] 02/11/22 at 1618, Until Discontinu ed, Routine, SBP > 170 nystatin-tr 2021-0 Yes Topical, Un matt iamcinolone 02-11 TID, First it y of (MYCOLOG) 19:00: dose on [place] cream 00 [facility] 02/11/22 at Branch 1400, Until Discontinu ed, Routine busPIRone 2021-0 Yes 30mg 30 mg, Univer s (BUSPAR) 02-11 Oral, BID, ity o f tablet 30 18:00: First dose [place] mg 00 on [facility] 02/11/22 at Branch 1300, Until Discontinu ed, Routine raltegravir 2021-0 Yes 400mg 400 mg, Un matt (ISENTRESS) 02-11 Oral, BID, it y of tablet 400 18:00: First dose [place] mg 00 on [facility] 02/11/22 at Branch 1300, Until Discontinu ed, JOE metoprolol 2021-0 Yes 100mg 100 mg, Uni vers tartrate 02-11 Oral, BID, ity o f (LOPRESSOR) 18:00: First dose [place] tablet 100 00 on [facility] Medical mg 02/11/22 at Branch 1300, Until Discontinu ed, Routine lisinopriL 2021-0 Yes 40mg 40 mg, Unive rs (PRINIVIL,Z 02-11 Oral, BID, it y of ESTRIL) 18:00: First dose [place] tablet 40 00 on [facility] Medical mg 02/11/22 at Branch 1300, Until Discontinu ed, Routine emtricitabi 2021-0 Yes 1{tbl} 1 tablet, Univers ne-tenofovi 02-11 Oral, ity of r alafen 18:00: DAILY, [place] (DESCOVY) 00 First dose Medi porfirio tablet 1 on [facility] tablet 02/11/22 at 1300, Until Discontinu ed, Routine ipratropium 2-0 Yes .5mg 0.5 mg, Uni vers (ATROVENT) 02-11 Inhalation ity of 0.02 % 17:57: , QIDPRN, [place] nebulizer 10 Starting Medica l solution on [facility] Branch 0.5 mg 02/11/22 at 1257, Until Discontinu ed, Routine, Wheezing, Shortness of Breath amLODIPine Yes 10mg 10 mg, Unive rs (NORVASC) 02-11 Oral, ity of tablet 10 17:30: DAILY, [place] mg 00 First dose Medical (after Branch last modificati on) on [facility] 02/11/22 at 1230, Until Discontinu ed, Routine hydrALAZINE 2021- No 25mg 25 mg, Uni vers (APRESOLINE 02-11 Oral, ity of ) tablet 25 17:30: 12:54 DAILY, [place] mg 00 :55 First dose Medical (after Branch last modificati on) on [facility] 02/11/22 at 1230, Until Discontinu ed, Routine HYDROcodone 2021- No 1{tbl} 1 tablet, Univers -acetaminop 02-11 Oral, ity of hen (NORCO 14:11: 17:37 Q6HPRN, [place] 5) 5-325 mg 03 :24 Starting Medi porfirio tablet 1 on [facility] Branch tablet 02/11/22 at 0911, Until 02/12/22 at 1237, Routine, Pain (scale 7-10) melatonin Yes 3mg 3 mg, Univers (MELATIN) 02-11 Oral, ity of tablet 3 mg 14:08: QHSPRN, [place] 17 Starting Medical on [facility] Branch 02/11/22 at 0908, Until Discontinu ed, Routine, Insomnia acetaminoph 2021- No 1{tbl} 1 tablet, Univers en-codeine 02-11 Oral, ity of (TYLENOL 14:06: 17:37 Q6HPRN, [place] #3) 300-30 19 :24 Starting Medic al mg tablet 1 on [facility] Branch tablet 02/11/22 at 0906, Until Tue02/12/22 at 1237, Routine, Pain (scale 4-6) sennosides- Yes 1{tbl} 1 tablet, Univers docusate 02-11 Oral, ity of sodium 14:06: QDAILYPRN, [place] (SENOKOT-S) 09 Starting Medi porfirio 8.6-50 mg on [place] Branch per tablet 02/11/22 at 1 tablet 0906, Until Discontinu ed, Routine, Constipati on ondansetron 2021-0 Yes 4mg 4 mg, Slow Univers (ZOFRAN [...] Discontinu ed, Routine, Pain (scale 1-3) lisinopril 2021-0 Yes 40mg Take 40 mg [...] mouth ity of 10 mg 09:10: daily. [place] tablet 54 Medical Branch piperacilli 2021-0 202- No 3.375g 3.375 g, Univers n-tazobacta 02-11 [...]
D uration of therapy: 72 hours iopamidol 2021- No [id number] 60mL 60 mL, Univers (ISOVUE 02-11 Intravenou ity o f 370-500 mL) 08:15: 08:15 s, ONCE, 1 [place] injection 00 :00 dose, On Medica l 60 mL [place] Branch 02/11/22 at 0315, Routine morpHINE (4 2021- No 4mg 4 mg, Slow Univers mg/mL) 02-11 IV Push, ity of injection 4 08:00: 07:49 ONCE, 1 [place] mg 00 :00 dose, On Medical [facility] Branch 02/11/22 at 0300, STAT ondansetron 2021- No 4mg 4 mg, Slow Univers (ZOFRAN 02-11 IV Push, ity of (PF)) 07:45: 07:49 ONCE, 1 [place] injection 4 00 :00 dose, On Medi porfirio mg [facility] Branch 02/11/22 at 0300, JOE ondansetron 2021- No 4mg 4 mg, Slow Univers (ZOFRAN 02-11 IV Push, ity of (PF)) 05:45: 05:08 ONCE, 1 [place] injection 4 00 :00 dose, On Medi porfirio mg [facility] Branch 02/11/22 at 0045, JOE acetaminoph 2021- No 975mg 975 mg, U nivers en 02-11 Oral, ity of (TYLENOL) 05:15: 04:19 ONCE, 1 [place] tablet 975 00 :00 dose, On Medic al mg [place] Branch 02/11/22 at 0015, JOE emtricitabi Yes [id number] Take one Univers ne-tenofovi 9-12 po daily ity of r alafen 00:00: [place] (DESCOVY) 00 Medical tablet Branch emtricitabi Yes [id number] Take one Univers ne-tenofovi 9-12 po daily ity of r alafen 00:00: [place] (DESCOVY) 00 Medical tablet Branch emtricitabi Yes [id number] Take one Univers ne-tenofovi 9-12 po daily ity of r alafen 00:00: [place] (DESCOVY) 00 Medical tablet Branch emtricitabi 2021-0 Yes [id number] Take one Univers ne-tenofovi 9-12 po daily ity of r alafen 00:00: [place] (DESCOVY) 00 Medical tablet Branch emtricitabi 2021-0 Yes [id number] Take one Univers ne-tenofovi 9-12 po daily ity of r alafen 00:00: [place] (DESCOVY) 00 Medical tablet Branch emtricitabi 0 Yes [id number] Take one Univers ne-tenofovi 9-12 po daily ity of r alafen 00:00: [place] (DESCOVY) 00 Medical tablet Branch naproxen 2021-0 Yes [id number] 500mg Take 1 U nivers (NAPROSYN) 7-24 tablet by ity of 500 mg 00:00: mouth in [place] tablet 00 the Medical morning Branch and 1 tablet in the evening. Take with meals. methocarbam 2021-0 Yes [id number] 500mg Take 1 Univers oL 500 mg 7-24 tablet by ity o f tablet 00:00: mouth 4 [place] ([facility]) Medical times Branch daily. naproxen 2021-0 Yes [id number] 500mg Take 1 U nivers (NAPROSYN) 7-24 tablet by ity of 500 mg 00:00: mouth in [place] tablet 00 the Medical morning Branch and 1 tablet in the evening. Take with meals. methocarbam 2021-0 Yes [id number] 500mg Take 1 Univers oL 500 mg 7-24 tablet by ity o f tablet 00:00: mouth 4 [place] ([facility]) Medical times Branch daily. naproxen 2021-0 Yes [id number] 500mg Take 1 U nivers (NAPROSYN) 7-24 tablet by ity of 500 mg 00:00: mouth in [place] tablet 00 the Medical morning Branch and 1 tablet in the evening. Take with meals. methocarbam 2021-0 Yes [id number] 500mg Take 1 Univers oL 500 mg 7-24 tablet by ity o f tablet 00:00: mouth 4 [place] ([facility]) Medical times Branch daily. esomeprazol [id number] 40mg Take 40 mg Univers e (NEXIUM) 11-20 by mouth 2 it y of 40 mg 09:12: 00:00 (two) [place] capsule 03 :00 times Medical daily. Branch amiodarone 2021- No 100mg Take 100 U nivers 100 mg 11-20 mg by ity of tablet 09:11: 00:00 mouth [place] 57 :00 daily. Medical Branch apixaban 2021- No 5mg Take 5 mg Uni vers (ELIQUIS) 5 11-20 by mouth 2 i ty of mg tablet 09:11: 00:00 (two) [place] 35 :00 times Medical daily. Branch traZODONE 2021- No Take by [facility] ers (DESYREL) 11-20 mouth at ity o f 10 mg/mL 09:10: 00:00 bedtime. [place] oral 28 :00 Medical suspension Branch hydralAZINE Yes 25mg Take 25 mg Univers (APRESOLINE 11-20 by mouth ity of ) 25 mg 08:47: daily. [place] tablet 47 Medical Branch cephALEXin 2021- No [id number] 500mg Take 1 Univers (KEFLEX) 10-24 capsule [...] 7-10). Indication s: acute pain buPROPion Yes [id number] 150mg Take 1 U nivers XL 4-12 tablet by ity of (WELLBUTRIN 00:00: mouth [place] XL) 150 mg 00 daily. Medical 24 hr Branch tablet busPIRone Yes [id number] 30mg Take 1 Un matt 30 mg 4-12 tablet by ity of tablet 00:00: mouth 2 [place] 00 (two) Medical times Branch daily. SERTraline Yes [id number] 200mg Take 2 Univers 100 mg 4-12 tablets by ity of tablet 00:00: mouth [place] 00 daily. Medical Branch buPROPion 0 Yes [id number] 150mg Take 1 U nivers XL 4-12 tablet by ity of (WELLBUTRIN 00:00: mouth [place] XL) 150 mg 00 daily. Medical 24 hr Branch tablet busPIRone 0 Yes [id number] 30mg Take 1 Un matt 30 mg 4-12 tablet by ity of tablet 00:00: mouth 2 [place] 00 (two) Medical times Branch daily. SERTraline Yes [id number] 200mg Take 2 Univers 100 mg 4-12 tablets by ity of tablet 00:00: mouth [place] 00 daily. Medical Branch buPROPion Yes [id number] 150mg Take 1 U nivers XL 4-12 tablet by ity of (WELLBUTRIN 00:00: mouth [place] XL) 150 mg 00 daily. Medical 24 hr Branch tablet busPIRone 0 Yes [id number] 30mg Take 1 Un matt 30 mg 4-12 tablet by ity of tablet 00:00: mouth 2 [place] 00 (two) Medical times Branch daily. SERTraline Yes [id number] 200mg Take 2 Univers 100 mg 4-12 tablets by ity of tablet 00:00: mouth [place] 00 daily. Medical Branch buPROPion 0 Yes [id number] 150mg Take 1 U nivers XL 4-12 tablet by ity of (WELLBUTRIN 00:00: mouth [place] XL) 150 mg 00 daily. Medical 24 hr Branch tablet busPIRone 0 Yes [id number] 30mg Take 1 Un matt 30 mg 4-12 tablet by ity of tablet 00:00: mouth 2 [place] 00 (two) Medical times Branch daily. SERTraline 0 Yes [id number] 200mg Take 2 Univers 100 mg 4-12 tablets by ity of tablet 00:00: mouth [place] 00 daily. Medical Branch buPROPion 0 Yes [id number] 150mg Take 1 U nivers XL 4-12 tablet by ity of (WELLBUTRIN 00:00: mouth [place] XL) 150 mg 00 daily. Medical 24 hr Branch tablet busPIRone 2021-0 Yes [id number] 30mg Take 1 Un matt 30 mg 4-12 tablet by ity of tablet 00:00: mouth 2 [place] 00 (two) Medical times Branch daily. SERTraline 2021-0 Yes [id number] 200mg Take 2 Univers 100 mg 4-12 tablets by ity of tablet 00:00: mouth [place] 00 daily. Medical Branch buPROPion 2021-0 Yes [id number] 150mg Take 1 U nivers XL 4-12 tablet by ity of (WELLBUTRIN 00:00: mouth [place] XL) 150 mg 00 daily. Medical 24 hr Branch tablet busPIRone 2021-0 Yes [id number] 30mg Take 1 Un matt 30 mg 4-12 tablet by ity of tablet 00:00: mouth 2 [place] 00 (two) Medical times Branch daily. SERTraline 2021-0 Yes [id number] 200mg Take 2 Univers 100 mg 4-12 tablets by ity of tablet 00:00: mouth [place] 00 daily. Medical Branch buPROPion 2021-0 Yes [id number] 150mg Take 1 U nivers XL 4-12 tablet by ity of (WELLBUTRIN 00:00: mouth [place] XL) 150 mg 00 daily. Medical 24 hr Branch tablet busPIRone 2021-0 Yes [id number] 30mg Take 1 Un matt 30 mg 4-12 tablet by ity of tablet 00:00: mouth 2 [place] 00 (two) Medical times Branch daily. SERTraline 2021-0 Yes [id number] 200mg Take 2 Univers 100 mg 4-12 tablets by ity of tablet 00:00: mouth [place] 00 daily. Medical Branch raltegravir 2021-0 Yes [id number] 400mg Take 1 Univers (ISENTRESS) 3-28 tablet by ity of 400 mg 00:00: mouth 2 [place] tablet 00 (two) Medical times Branch daily. raltegravir 2021-0 Yes [id number] 400mg Take 1 Univers (ISENTRESS) 3-28 tablet by ity of 400 mg 00:00: mouth 2 [place] tablet 00 (two) Medical times Branch daily. raltegravir 2021-0 Yes [id number] 400mg Take 1 Univers (ISENTRESS) 3-28 tablet by ity of 400 mg 00:00: mouth 2 [place] tablet 00 (two) Medical times Branch daily. raltegravir 2021-0 Yes [id number] 400mg Take 1 Univers (ISENTRESS) 3-28 tablet by ity of 400 mg 00:00: mouth 2 [place] tablet 00 (two) Medical times Branch daily. raltegravir 2021-0 Yes [id number] 400mg Take 1 Univers (ISENTRESS) 3-28 tablet by ity of 400 mg 00:00: mouth 2 [place] tablet 00 (two) Medical times Branch daily. raltegravir 2021-0 Yes [id number] 400mg Take 1 Univers (ISENTRESS) 3-28 tablet by ity of 400 mg 00:00: mouth 2 [place] tablet 00 (two) Medical times Branch daily. raltegravir 2021-0 Yes [id number] 400mg Take 1 Univers (ISENTRESS) 3-28 tablet by ity of 400 mg 00:00: mouth 2 [place] tablet 00 (two) Medical times Branch daily. LORazepam 1 2021- No [id number] 1mg Take 1 [facility] mg tablet 3-10 [...] 00 times a tablet day. emtricitabi 0 2021- No [id number] Take one [facility] ne-tenofovi 1-20 09-12 po daily ity of r alafen 00:00: 00:00 [place] (DESCOVY) 00 :00 Medical tablet Branch metoprolol 2020-0 Yes [id number] Take 1 [facility] tartrate 7-26 tablet Health (Lopressor) 00:00: (100 mg 100 MG 00 total) by tablet mouth 2 (two) times a day AND 0.5 tablets (50 mg total) every night. metoprolol 2021-0 Yes [id number] Take 1 [facility] tartrate 7-26 tablet Health [...] area in groin) hydrALAZINE 0 Yes 50mg Q.[id number] Take 50 mg [facility] (APRESOLINE 7-19 [id number] [address] mouth [facility] ) 50 MG [...] [facility] tablet 25 daily. l clobetasol 2021-0 Yes 1{appli Q.5D Apply 1 M [facility] (TEMOVATE) 7-19 cation} applicatio st 0.05 % 10:51: n [facility]ospita ointment 25 topically l 2 (two) times a day. (affected area in groin) hydrALAZINE 0 Yes 50mg Q.[id number] Take 50 mg [facility] (APRESOLINE 7-19 [id number] [address] mouth 3 st ) 50 MG [...] (affected area in groin) hydrALAZINE Yes 50mg Q.[id number] Take 50 mg [facility] (APRESOLINE 7-19 [id number] [address] mouth 3 st ) 50 MG [...] area in groin) hydrALAZINE 0 Yes 50mg Q.[id number] Take 50 mg [facility] (APRESOLINE 7-19 [id number] [address] mouth 3 st ) 50 MG [...] area in groin) hydrALAZINE 0 Yes 50mg Q.[id number] Take 50 mg [facility] (APRESOLINE 7-19 [id number] [address] mouth 3 st ) 50 MG [...] (two) l tablet times a day. amLODIPine 2020-0 Yes 10mg QD Take 10 mg M [...] (affected area in groin) hydrALAZINE Yes 50mg Q.[id number] Take 50 mg [facility] (APRESOLINE 7-19 [id number] [address] mouth 3 st ) 50 MG [...] (affected area in groin) hydrALAZINE Yes 50mg Q.[id number] Take 50 mg [facility] (APRESOLINE 7-19 [id number] by mouth 3 st ) 50 MG [...] area in groin) hydrALAZINE 0 Yes 50mg Q.[id number] Take 50 mg [facility] (APRESOLINE 7-19 [id number] by mouth 3 st ) 50 MG [...] (affected area in groin) hydrALAZINE Yes 50mg Q.[id number] Take 50 mg [facility] (APRESOLINE 7-19 [id number] mouth 3 st ) 50 MG [...] (affected area in groin) hydrALAZINE Yes 50mg Q.[id number] Take 50 mg [facility] (APRESOLINE 7-19 [id number] [address] mouth 3 st ) 50 MG [...] area in groin) hydrALAZINE 0 Yes 50mg Q.[id number] Take 50 mg [facility] (APRESOLINE 7-19 [id number] [address] mouth 3 st ) 50 MG [...] area in groin) hydrALAZINE 0 Yes 50mg Q.[id number] Take 50 mg [facility] (APRESOLINE 7-19 [id number] mouth 3 st ) 50 MG [...] (affected area in groin) hydrALAZINE Yes 50mg Q.[id number] Take 50 mg [facility] (APRESOLINE 7-19 [id number] mouth [facility] ) 50 MG [...] [facility]osp[facility] tablet 25 daily. l esomeprazol 2020-0 Yes 20mg QD Take 20 mg [facility] [...] area in groin) hydrALAZINE 2020-0 Yes 50mg Q.[id number] Take 50 mg [facility] (APRESOLINE 7-[id number] mouth [address] ) 50 MG 10:51: 3D (three) Hospita tablet 25 times a l day. busPIRone 2020-0 Yes 20mg QD Take 20 mg Me thodi (BUSPAR) 10 7-[address] MG tablet 10:51: nightly. Hosp soren 25 l acetaminoph 2021-0 [...] tablet 25 daily. l nystatin-tr 0 Yes [id number] Apply to [facility] iamcinolone 7-06 area(s) 3 ity of cream 00:00: (three) [place] 00 times Medical daily. Branch nystatin-tr 1-0 Yes [id number] Apply to [facility] iamcinolone 7-06 area(s) 3 ity of cream 00:00: (three) [place] 00 times Medical daily. Branch nystatin-tr 2021-0 Yes [id number] Apply to [facility] iamcinolone 7-06 area(s) 3 ity of cream 00:00: (three) [place] 00 times Medical daily. Branch nystatin-tr 2021-0 Yes [id number] Apply to [facility] iamcinolone 7-06 area(s) 3 ity of cream 00:00: (three) [place] 00 times Medical daily. Branch nystatin-tr 2021-0 Yes [id number] Apply to [facility] iamcinolone 7-06 area(s) 3 ity of cream 00:00: (three) [place] 00 times Medical daily. Branch nystatin-tr 2021-0 Yes [id number] Apply to [facility] iamcinolone 7-06 area(s) 3 ity of cream 00:00: (three) [place] 00 times Medical daily. Branch nystatin-tr 0 Yes [id number] Apply to [facility] 11-25 area(s) 3 ity of cream 00:00: (three) [place] 00 times Medical daily. Branch budesonide- 0 2021- No 1{puff} QD Inhale 1 [facility] formoteroL 625 06-[address] (SYMBICORT) 14:37: 00:00 morning. H ospita 160-4.5 02 :00 l mcg/actuati on inhaler hydrALAZINE 0 Yes [id number] 50mg Q.[id number] Take 1 [facility] (Apresoline 6-11 [id number] tablet (50 Health ) 50 MG 00:00: 3D mg total) tablet 00 by mouth 3 (three) times a day. hydrALAZINE Yes [id number] 50mg Q.[id number] Take 1 [facility] (Apresoline 6-11 [id number] tablet (50 Health ) 50 MG 00:00: 3D mg total) tablet 00 by mouth 3 (three) times a day. Breztri 0 Yes [facility] Aerosphere 6-09 Health 160-9-4.8 00:00: MCG/ACT 00 aerosol Breztri 0 Yes [facility] Aerosphere 6-09 Health 160-9-4.8 00:00: MCG/ACT 00 aerosol albuterol 2020-0 Yes [facility] (2.5 6-02 Health MG/3ML) 00:00: 0.083% 00 nebulizer solution albuterol 0 2021- No [facility] (2.5 6-02 -22 Health [...] % 00:00: ointment 00 nystatin 2020- No [id number] Q.25D Take 5 mL [facility] (MYCOSTATIN 10-06 [...] Eliquis 5 0 Yes UT MG tablet 05 Health 00:00: 00 Eliquis 5 2021-0 Yes 5mg Q.5D Take 5 mg UT [...] ia 4-10 (Same as: l 14:00: Norvasc) [place] 00 emtricitabi No Notes: Caesar lisa ne 200 MG / 4-10 (Same as: l tenofovir 14:00: Descovy) Herm ariel alafenamide 00 Non-formul 25 MG Oral nancy Tablet [Descovy] pantoprazol No Notes: Caesar lisa e 4-10 Tablet l 14:00: should not [place] 00 be chewed or crushed. (Same as: [...] ia 4-10 (Same as: l 14:00: Zoloft) [place] 00 Sertraline No Notes: Memor ia 4-10 (Same as: l 14:00: Zoloft) [place] pantoprazol No Notes: Caesar lisa e 4-10 Tablet l 14:00: should not [place] 00 be chewed or crushed. (Same as: Protonix) Amiodarone No Notes: Memor ia 4-10 (Same as: l 14:00: Cordarone) Amlodipine No Notes: Memor ia 4-10 (Same as: l 14:00: Norvasc) [place] 00 emtricitabi No Notes: Caesar lisa ne 200 MG / 4-10 (Same as: l tenofovir 14:00: Descovy) Herm ariel alafenamide 00 Non-formul 25 MG Oral nancy Tablet [Descovy] Sertraline No Notes: Memor ia 4-10 (Same as: l 14:00: Zoloft) [place] 00 pantoprazol No Notes: Caesar lisa e 4-10 Tablet l 14:00: should not [place] 00 be chewed or crushed. (Same as: [...] ia 4-10 (Same as: l 14:00: Norvasc) [place] emtricitabi No Notes: Caesar lisa ne 200 MG / 4-10 (Same as: l tenofovir 14:00: Descovy) Herm ariel alafenamide 00 Non-formul 25 MG Oral nancy Tablet [Descovy] Sertraline No Notes: Memor ia 4-10 (Same as: l 14:00: Zoloft) [place] 00 pantoprazol No Notes: Caesar lisa e 4-10 Tablet l 14:00: should not [place] 00 be chewed or crushed. (Same as: [...] ia 4-10 (Same as: l 14:00: Zoloft) [place] 00 pantoprazol No Notes: Caesar lisa e [...] ia 4-10 (Same as: l 14:00: Zoloft) [place] 00 pantoprazol No Notes: Caesar lisa e 4-10 Tablet l 14:00: should not [place] 00 be chewed or crushed. (Same as: Protonix) Amiodarone No Notes: Memor ia 4-10 (Same as: l 14:00: Cordarone) Marty Sucralfate No Notes: May M emoria 4-10 interfere l 02:00: w/enteral [place] 00 feeds - Take 1 hr before [...] 0.9% 4-10 (Same as: l 02:00: BD [place] 00 Posiflush) Eliquis No Notes: Memoria 4-10 [...] 0.9% 4-10 (Same as: l 02:00: BD [place] 00 Posiflush) Eliquis No Notes: Mem[facility] 4-10 Same as: l 02:00: Eliquis [place] 00 Hydralazine No Notes: Caesar lisa Hydrochlori [...] 0.9% 4-10 (Same as: l 02:00: BD [place] 00 Posiflush) Eliquis No Notes: Memoria 4-10 Same as: l 02:00: Eliquis [place] 00 Hydralazine No Notes: Caesar lisa Hydrochlori 4-10 (Same as: l de 50 MG 02:00: Apresoline Her mitchell Oral Tablet 00 ) May interfere w/enteral feedings Take With Food Sucralfate No Notes: May M emoria 4-10 interfere l 02:00: w/enteral [place] 00 feeds - Take 1 hr before or 2 hr after antacids, dairy pdt, meals & minerals - On empty stomach. For patients unable to swallow tablet, dissolve in 10mL - 30mL of water or juice and stir before giving. (Same As: Carafate) Saline No Notes: [facility] Flush 0.9% 4-10 (Same as: l 02:00: BD [place] 00 Posiflush) Eliquis No Notes: [facility] 4-10 Same as: l 02:00: Eliquis [place] Hydralazine No Notes: Caesar lisa Hydrochlori 4-10 [...] 0.9% 4-10 (Same as: l 02:00: BD [place] Posiflush) Eliquis No Notes: Mem[facility] 4-10 Same [...] not exceed l #3 00:12: 4gm/day of [place] acetaminop hen. (Same as: Tylenol with Codeine [...] tartrate 4-09 tab, l 22:00: Route: PO, [place] 00 Drug form: TAB, BID, Dosing Weight [...] oria 4-09 tab, l 22:00: Route: PO, [place] Drug form: TAB, BID, Dosing Weight 97.273, kg, Start date: 08/29/20 17:00:00 CDT, Duration: 30 day, Stop date: 09/28/20 9:00:00 CDT metoprolol 1-0 No 100 mg, 1 Me moria tartrate 4-09 tab, l 22:00: Route: PO, [place] Drug form: TAB, BID, Dosing Weight 97.273, [...] oria 4-09 tab, l 22:00: Route: PO, [place] Drug form: TAB, BID, Dosing Weight 97.273, [...] Notes: Memoria 4-09 (Same l 17:07: as:MORPhin [place] 00 e Sulfate) Morphine No Notes: [facility]oria 4-09 (Same l 17:07: as:MORPhin [place] 00 e Sulfate) Morphine No Notes: Memoria 4- (Same l 17:07: as:MORPhin [place] 00 e Sulfate) Morphine No Notes: Memoria 4- (Same l 17:07: as:MORPhin [place] 00 e Sulfate) Morphine No Notes: Memoria 4- (Same l 17:07: as:MORPhin [place] 00 e Sulfate) Morphine No Notes: Memoria 4- (Same l 17:07: as:MORPhin [place] 00 e Sulfate) buPROPion 2020-0 No 150 [...] 0 coated Refill(s), tablet Pharmacy: [facility] 149, 162.56, cm, 08/29/20 5:30:00 CDT, Height, 97.273, kg, 08/29/20 5:30:00 CDT, Weight pantoprazol 2020-0 Yes 40 mg = 1 M emoria e 40 mg 4-09 tab, PO, l oral 15:27: Daily, # Marty enteric 00 30 tab, 0 coated Refill(s), tablet Pharmacy: [facility] 149, 162.56, cm, 08/29/20 5:30:00 CDT, Height, 97.273, kg, 08/29/20 5:30:00 CDT, Weight pantoprazol 2020-0 Yes 40 mg = 1 M emoria e 40 mg 4-09 tab, PO, l oral 15:27: Daily, # [place] enteric 00 30 tab, 0 coated Refill(s), tablet Pharmacy: [facility] 149, 162.56, cm, 08/29/20 5:30:00 CDT, Height, 97.273, kg, 08/29/20 5:30:00 CDT, Weight pantoprazol 2021-0 Yes 40 mg = 1 M emoria e 40 mg 4-09 tab, PO, l oral 15:27: Daily, # [place] enteric 00 30 tab, 0 coated Refill(s), tablet Pharmacy: [facility] 149, 162.56, cm, 08/29/20 5:30:00 CDT, Height, 97.273, kg, 08/29/20 5:30:00 CDT, Weight pantoprazol 1-0 Yes 40 mg = 1 M emoria e 40 mg 4-09 tab, PO, l oral 15:27: Daily, # [place] enteric 00 30 tab, 0 coated Refill(s), tablet Pharmacy: [facility] 149, 162.56, cm, 08/29/20 5:30:00 CDT, Height, 97.273, kg, 08/29/20 5:30:00 CDT, Weight pantoprazol 1-0 Yes 40 mg = 1 M emoria e 40 mg 4-09 tab, PO, l oral 15:27: Daily, # [place] enteric 00 30 tab, 0 coated Refill(s), tablet Pharmacy: [facility] 149, 162.56, cm, 08/29/20 5:30:00 CDT, Height, 97.273, kg, 08/29/20 5:30:00 CDT, Weight pantoprazol 1-0 Yes 40 mg = 1 M emoria e 40 mg 4-09 tab, PO, l oral 15:27: Daily, # [place] enteric 00 30 tab, 0 coated Refill(s), tablet Pharmacy: [facility] 149, 162.56, cm, 08/29/20 5:30:00 CDT, Height, [...] 00 tab, 0 Refill(s), Pharmacy: [facility] 149, 162.56, cm, 08/29/20 5:30:00 CDT, Height, [...] 00 tab, 0 Refill(s), Pharmacy: [facility] 149, 162.56, cm, 08/29/20 5:30:00 CDT, Height, [...] 00 tab, 0 Refill(s), Pharmacy: [facility] 149, 162.56, cm, 08/29/20 5:30:00 CDT, Height, [...] 00 tab, 0 Refill(s), Pharmacy: [facility] 149, 162.56, cm, 08/29/20 5:30:00 CDT, Height, [...] 00 tab, 0 Refill(s), Pharmacy: [facility] 149, 162.56, cm, 08/29/20 5:30:00 CDT, Height, [...] 00 tab, 0 Refill(s), Pharmacy: [facility] 149, 162.56, cm, 08/29/20 5:30:00 CDT, Height, 97.273, kg, 08/29/20 5:30:00 CDT, Weight pantoprazol No 40 mg = 1 M emoria e 40 mg 4-09 tab, PO, l oral 15:26: Daily, # [place] enteric 00 30 tab, 0 coated Refill(s) tablet sucralfate Yes 1 gm = 1 Mem oria 1 g oral 4-09 tab, PO, l tablet 15:26: Q12H, # 28 Skylar nn 00 tab, 0 Refill(s), Pharmacy: [facility] 149, 162.56, cm, 08/29/20 5:30:00 CDT, Height, 97.273, kg, 08/29/20 5:30:00 CDT, Weight Saline No Notes: Memoria Flush 0.9% 08-29 (Same as: l 15:25: BD [place] 00 Posiflush) Lorazepam No Notes: Memori a -09 (Same as: l 15:25: Ativan) Saline No Notes: Memoria Flush 0.9% 4-09 (Same as: l 15:25: BD Marty 00 Posiflush) Lorazepam No Notes: Memori a 4-09 (Same as: l 15:25: Ativan) Saline No Notes: Memoria Flush 0.9% 4-09 (Same as: l 15:25: BD [place] 00 Posiflush) Saline No Notes: Memoria Flush 0.9% 4-09 (Same as: l 15:25: BD [place] 00 Posiflush) Lorazepam No Notes: Memori a 4-09 (Same as: l 15:25: Ativan) Lorazepam No Notes: Memori a 4-09 (Same as: l 15:25: Ativan) Saline No Notes: Memoria Flush 0.9% 4-09 (Same as: l 15:25: BD [place] 00 Posiflush) Lorazepam No Notes: Memori a 4-09 (Same as: l 15:25: Ativan) Saline No Notes: Memoria Flush 0.9% 4-09 (Same as: l 15:25: BD [place] 00 Posiflush) Lorazepam No Notes: Memori a 4-09 (Same as: l 15:25: Ativan) Saline No Notes: Memoria Flush 0.9% 4-09 (Same as: l 15:25: BD Maryt 00 Posiflush) Lorazepam No Notes: Memori a 4-09 (Same as: l 15:25: Ativan) Isuprel HCl No Route: IV, Memoria (ANES) 0.2 4-09 Drug form: l mg + 15:00: INJ, [place] 00 Dosing Weight 97.3, kg, Start date: 08/29/20 10:00:00 CDT, Stop date: 08/29/20 11:00:00 CDT Isuprel HCl No Route: IV, Memoria (ANES) 0.2 08-29 Drug form: l mg + 15:00: INJ, Marty Dosing Weight 97.3, kg, Start date: 08/29/20 10:00:00 CDT, Stop date: 08/29/20 11:00:00 CDT Isuprel HCl 2020-0 No Route: IV, Memoria (ANES) 0.2 08-29 Drug form: l mg + 15:00: INJ, [place] Dosing Weight 97.3, kg, Start date: 08/29/20 [...] Drug form: l mg + 15:00: INJ, [place] 00 Dosing Weight 97.3, kg, Start date: [...] 9:49:00 CDT heparin 202-0 No Route: IV, Casear lisa (ANES) 08-29 Drug form: l 14:49: [...] 08-29 Drug form: l 14:29: INJ, ONCE, [place] 00 Stop date: 08/29/20 9:29:00 CDT propofol [...] 08-29 Drug form: l 14:18: INJ, ONCE, [place] 00 Stop date: 08/29/20 9:18:00 CDT heparin 2021-0 No Route: IV, Caesar lisa (ANES) 08-29 Drug form: l 14:18: INJ, ONCE, Stop date: 08/29/20 9:18:00 CDT heparin 2021-0 No Route: IV, Caesar lisa (ANES) 08-29 Drug form: l 14:18: INJ, ONCE, [place] 00 Stop date: 08/29/20 9:18:00 CDT heparin 2021-0 No Route: IV, Caesar lisa (ANES) 08-29 Drug form: l 14:18: INJ, ONCE, Stop date: 08/29/20 9:18:00 CDT heparin 2021-0 No Route: IV, Caesar lisa (ANES) 08-29 Drug form: l 14:18: INJ, ONCE, [place] 00 Stop date: 08/29/20 9:18:00 CDT heparin 2021-0 No Route: IV, Caesar lisa (ANES) 08-29 Drug form: l 14:18: INJ, ONCE, [place] 00 Stop date: 08/29/20 9:18:00 CDT heparin 2021-0 No Route: IV, Caesar lisa (ANES) 08-29 Drug form: l 14:18: INJ, ONCE, [place] 00 Stop date: 08/29/20 9:18:00 CDT Naloxone 1-0 No 0.4 mg, Memori a 08-29 Route: l 14:01: IVP, [place] 00 Q2MIN, Dosing Weight 97.273, kg, PRN [...] Memori a 08-29 Route: l 14:01: IVP, [place] 00 Q5Min, Dosing Weight 97.273, kg, PRN Elevated BP, Start date: 08/29/20 9:01:00 CDT, Duration: 5 doses or times, Stop date: Limited # of times Acetaminoph 1-0 No 1,000 mg, M emoria en 08-29 Route: PO, l 14:01: Drug form: [place] 00 TAB, ONCE, Dosing Weight 97.273, kg, [...] oria ne 08-29 Route: l 14:01: IVP, [place] 00 Q5Min, Dosing Weight 97.273, kg, PRN [...] Memori a 08-29 Route: l 14:01: IVP, [place] 00 Q5Min, Dosing Weight 97.273, kg, PRN [...] oria ne 08-29 Route: l 14:01: IVP, [place] 00 Q5Min, Dosing Weight 97.273, kg, PRN [...] ia 08-29 Route: l 14:01: IVP, ONCE, [place] 00 Dosing Weight 97.273, kg, PRN Nausea & Vomiting, Start date: 08/29/20 9:01:00 CDT Labetalol 1-0 No 10 mg, Memori a 08-29 Route: l 14:01: IVP, [place] 00 Q5Min, Dosing Weight 97.273, kg, PRN [...] ia 08-29 Route: l 14:01: IVP, ONCE, [place] 00 Dosing Weight 97.273, kg, PRN Nausea & Vomiting, Start date: 08/29/20 9:01:00 CDT Labetalol 1-0 No 10 mg, Memori a 08-29 Route: l 14:01: IVP, [place] 00 Q5Min, Dosing Weight 97.273, kg, PRN Elevated BP, Start date: 08/29/20 9:01:00 CDT, Duration: 5 doses or times, Stop date: Limited # of times Acetaminoph 1-0 No 1,000 mg, M emoria en 08-29 Route: PO, l 14:01: Drug form: [place] 00 TAB, ONCE, Dosing Weight 97.273, kg, [...] oria ne 08-29 Route: l 14:01: IVP, [place] 00 Q5Min, Dosing Weight 97.273, kg, PRN Pain Score 7-10, Start date: 08/29/20 9:01:00 CDT, Duration: 4 doses or times, Stop date: Limited # of times Labetalol 2020-0 No 10 mg, Memori a 08-29 Route: l 14:01: IVP, [place] 00 Q5Min, Dosing Weight 97.273, kg, PRN Elevated BP, Start date: 08/29/20 9:01:00 CDT, Duration: 5 doses or times, Stop date: Limited # of times Acetaminoph 2020-0 No 1,000 mg, M emoria en 08-29 Route: PO, l 14:01: Drug form: [place] 00 TAB, ONCE, Dosing Weight 97.273, kg, [...] lisa 4-09 Route: l 14:01: IVP, PRN, [place] Dosing Weight 97.273, kg, PRN Benzodiaze pine Reversal, Initial dose, Start date: 08/29/20 9:01:00 CDT, Duration: 30 day, Stop date: 09/28/20 9:00:00 CDT Naloxone 2021-0 No 0.4 mg, Memori a 08-29 Route: l 14:01: IVP, [place] 00 Q2MIN, Dosing Weight 97.273, kg, PRN [...] ia 08-29 Route: l 14:01: IVP, ONCE, [place] 00 Dosing Weight 97.273, kg, PRN Nausea & Vomiting, Start date: 08/29/20 9:01:00 CDT Naloxone 2021-0 No 0.4 mg, Memori a 08-29 Route: l 14:01: IVP, [place] 00 Q2MIN, Dosing Weight 97.273, kg, PRN [...] Memori a 08-29 Route: l 14:01: IVP, [place] 00 Q5Min, Dosing Weight 97.273, kg, PRN Elevated BP, Start date: 08/29/20 9:01:00 CDT, Duration: 5 doses or times, Stop date: Limited # of times Acetaminoph 1-0 No 1,000 mg, M emoria en 08-29 Route: PO, l 14:01: Drug form: [place] 00 TAB, ONCE, Dosing Weight 97.273, kg, [...] Memori a 08-29 Route: l 14:01: IVP, [place] 00 Q2MIN, Dosing Weight 97.273, kg, PRN Narcotic Reversal, Start date: 08/29/20 9:01:00 CDT, Duration: 8 doses or times, Stop date: Limited # of times Ondansetron 1-0 No 4 mg, Memor ia 08-29 Route: l 14:01: IVP, ONCE, [place] 00 Dosing Weight 97.273, kg, PRN Nausea [...] lisa 08-29 Route: l 14:01: IVP, PRN, [place] 00 Dosing Weight 97.273, kg, PRN Benzodiaze [...] 08-29 Drug form: l 13:42: INJ, ONCE, [place] Stop date: 08/29/20 8:42:00 CDT fentaNYL 2020-0 [...] Drug form: l 10 13:15: INJ, Start [place] microgram date: 08/29/20 8:15:00 CDT, Stop date: [...] 4-09 Total l 0.9% IV 12:30: Volume: [place] (ANES) 1000 00 1,000, mL Start date: [...] PO, l Hydrochlori 11:42: Q24H, # 30 [place] de 150 MG 00 tab, 0 Extended Refill(s) Release Tablet 24 HR Yes 150 mg = 1 Memori a Bupropion -09 tab, PO, l Hydrochlori 11:42: Q24H, # 30 [place] de 150 MG 00 tab, 0 Extended [...] 4-09 Q12H, tab, l Tablet 11:41: 0 [place] [Eliquis] 00 Refill(s), For Atrial Fibrilatio n apixaban Yes 5 mg, PO, Me moria MG Oral 4- Q12H, tab, l Tablet 11:41: 0 [place] [Eliquis] 00 Refill(s), For Atrial Fibrilatio n apixaban 5 2020-0 Yes 5 mg, PO, Me moria MG Oral - Q12H, tab, l Tablet 11:41: 0 [place] [Eliquis] 00 Refill(s), For Atrial Fibrilatio n apixaban 5 2020-0 Yes 5 mg, PO, Me moria MG Oral - Q12H, tab, l Tablet 11:41: 0 [place] [Eliquis] 00 Refill(s), For Atrial Fibrilatio n apixaban 5 2020-0 Yes 5 mg, PO, Me moria MG Oral 08-29 Q12H, tab, l Tablet 11:41: 0 [place] [Eliquis] 00 Refill(s), For Atrial Fibrilatio n [...] tab, PO, l tablet 11:38: Daily, # [place] 00 90 tab, 3 Refill(s) AMIODarone 2020-0 Yes 200 mg = 1 M emoria 200 mg oral 4-09 tab, PO, l tablet 11:38: Daily, # [place] 00 90 tab, 3 Refill(s) AMIODarone 2020-0 Yes 200 mg = 1 M emoria 200 mg oral 4-09 tab, PO, l tablet 11:38: Daily, # [place] 00 90 tab, 3 Refill(s) AMIODarone 2020-0 Yes 200 mg = 1 M emoria 200 mg oral 4-09 tab, PO, l tablet 11:38: Daily, # [place] 00 90 tab, 3 Refill(s) AMIODarone 0 Yes 200 mg = 1 M emoria 200 mg oral 4-09 tab, PO, l tablet 11:38: Daily, # [place] 00 90 tab, 3 Refill(s) AMIODarone 2020-0 Yes 200 mg = 1 M emoria 200 mg oral 4-09 tab, PO, l tablet 11:38: Daily, # [place] 00 90 tab, 3 Refill(s) AMIODarone 2020-0 Yes 200 mg = 1 M emoria 200 mg oral 4-09 tab, PO, l tablet 11:38: Daily, # Matry 00 90 tab, 3 Refill(s) normal 0 [...] Health 20 MG 00:00: tablet 00 buPROPion 2020-0 Yes bupropion [...] 00:00: [place] on inhaler [facility] albuterol 2019- Yes Univers 90 [...] 2019-0 Yes 1{each} 1 each. [facility] -hydroCHLOR 1- Health Othiazide 00:00: (Dyazide) 00 37.5-25 MG capsule triamterene 2019-0 Yes 1{each} 1 each. [facility] -hydroCHLOR - [...] [facility] (two[facility] Yes 400mg Q.5D Take 400 Met hodi 400 mg 3-[address] tablet 00:00: mouth 2 [facility]ospita 00 (two) l [facility] a day. [facility] Yes 400mg Q.5D Take 400 Met hodi 400 mg 3-[address] tablet 00:00: mouth 2 Hospita 00 (two) l times a day. 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) Influenza Virus 2022-03-05 Completed Universit y of Vaccine,quad 00:00:00 [place] [facility] Im,preserve Free Branch 65+ SARS-COV-2 COVID-19 2022-03-05 Completed Unive rsity of DIMITRIS-SUCROSE 00:00:00 [place] [facility] VACCINE 12 YRS+, Branch BIVALENT 0.3ML, IM, (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) Influenza Virus 2022-03-05 Completed Universit y of Vaccine,quad 00:00:00 [place] [facility] Im,preserve Free Branch 65+ PFIZER COVID-19 2020-07-23 Completed [facility] VACCINATION 00:00:00 [facility] PFIZER COVID-19 2020-07-23 Completed [facility] VACCINATION 00:00:00 [facility] PFIZER COVID-19 2020-07-23 Completed [facility] VACCINATION 00:00:00 [facility] PFIZER COVID-19 2020-07-23 Completed [facility] VACCINATION 00:00:00 [facility] PFIZER COVID-19 2020-07-23 Completed [facility] VACCINATION 00:00:00 [facility] PFIZER COVID-19 2020-07-23 Completed [facility] VACCINATION 00:00:00 [facility] PFIZER COVID-19 2020-07-23 Completed [facility] VACCINATION 00:00:00 [facility] PFIZER COVID-19 2020-07-23 Completed [facility] VACCINATION 00:00:00 [facility] PFIZER COVID-19 2020-07-23 Completed [facility] VACCINATION 00:00:00 [facility] PFIZER COVID-19 2020-07-23 Completed [facility] VACCINATION 00:00:00 [facility] PFIZER COVID-19 2020-07-23 Completed [facility] VACCINATION 00:00:00 [facility] PFIZER COVID-19 2020-07-23 Completed [facility] VACCINATION 00:00:00 [facility] PFIZER COVID-19 2020-07-23 Completed [facility] VACCINATION 00:00:00 [facility] SARS-COV-2 COVID-19 2020-07-23 Completed [facility] of PFIZER VACCINE 00:00:[address] [facility] SARS-COV-2 COVID-19 2020-07-23 Completed [facility] rs[facility] of PFIZER VACCINE 00:00:[address] [facility] SARS-COV-2 COVID-19 2020-07-23 Completed [facility] of PFIZER VACCINE 00:00:[address] [facility] PFIZER COVID-19 2020-07-23 Completed [facility] VACCINATION 00:00:00 [facility] PFIZER COVID-19 2020-07-02 Completed [facility] VACCINATION 00:00:00 [facility] PFIZER COVID-19 2020-07-02 Completed [facility] VACCINATION 00:00:00 [facility] PFIZER COVID-19 2020-07-02 Completed [facility] VACCINATION 00:00:00 [facility] PFIZER COVID-19 2020-07-02 Completed [facility] VACCINATION 00:00:00 [facility] PFIZER COVID-19 2020-07-02 Completed [facility] VACCINATION 00:00:00 [facility] PFIZER COVID-19 2020-07-02 Completed [facility] VACCINATION 00:00:00 [facility] PFIZER COVID-19 2020-07-02 Completed [facility] VACCINATION 00:00:00 [facility] PFIZER COVID-19 2020-07-02 Completed [facility] VACCINATION 00:00:00 [facility] PFIZER COVID-19 2020-07-02 Completed [facility] VACCINATION 00:00:00 [facility] PFIZER COVID-19 2020-07-02 Completed [facility] VACCINATION 00:00:00 [facility] PFIZER COVID-19 2020-07-02 Completed [facility] VACCINATION 00:00:00 [facility] PFIZER COVID-19 2020-07-02 Completed [facility] VACCINATION 00:00:00 [facility] PFIZER COVID-19 2020-07-02 Completed [facility] VACCINATION 00:00:00 [facility] SARS-COV-2 COVID-19 2020-07-02 Completed Unive rsity of PFIZER VACCINE 00:00:[address] [facility] SARS-COV-2 COVID-19 2020-07-02 Completed Unive rsity of PFIZER VACCINE 00:00:[address] [facility] SARS-COV-2 COVID-19 2020-07-02 Completed Unive rsity of PFIZER VACCINE 00:00:[address] [facility] PFIZER COVID-19 2020-07-02 Completed [facility] VACCINATION 00:00:00 [facility] Influenza Virus 2017-03-08 Completed Universit y of Vaccine 00:00:00 [facility] Influenza Virus 2017-03-08 Completed Universit y of Vaccine 00:00:00 [facility] Influenza Virus 2017-03-08 Completed Universit y of Vaccine 00:00:00 [facility] Influenza Virus 2017-03-08 Completed Universit y of Vaccine 00:00:00 [facility] Influenza Virus 2017-03-08 Completed Universit y of Vaccine 00:00:00 [facility] Influenza Virus 2017-03-08 Completed Universit y of Vaccine 00:00:00 [facility] Influenza Virus 2017-03-08 Completed Universit y of Vaccine 00:00:00 [facility] Influenza Virus 2014-01-30 Completed Universit y of Vaccine (3+ yrs) 00:00:00 [facility] Pneumococcal 13 2014-01-30 Completed Universit y of Conjugate, PCV13 00:00:00 [facility] Influenza Virus 2014-01-30 Completed Universit y of Vaccine (3+ yrs) 00:00:00 [facility] Pneumococcal 13 2014-01-30 Completed Universit y of Conjugate, PCV13 00:00:00 [facility] dical (Prevnar 13) Branch Influenza Virus 2014-01-30 Completed Universit y of Vaccine (3+ yrs) 00:00:00 [facility] Pneumococcal 13 2014-01-30 Completed Universit y of Conjugate, PCV13 00:00:00 [facility] 13[facility] Influenza Virus 2014-01-30 Completed Universit y of Vaccine (3+ yrs) 00:00:00 [facility] Pneumococcal 13 2014-01-30 Completed Universit y of Conjugate, PCV13 00:00:00 [facility] dical (Prevnar 13) Branch Influenza Virus 2014-01-30 Completed Universit y of Vaccine (3+ yrs) 00:00:00 [facility] Pneumococcal 13 2014-01-30 Completed Universit y of Conjugate, PCV13 00:00:00 [facility] (Prevnar 13) Branch Influenza Virus 2014-01-30 Completed Universit y of Vaccine (3+ yrs) 00:00:00 [facility] Pneumococcal 13 2014-01-30 Completed Universit y of Conjugate, PCV13 00:00:00 [facility] dical (Prevnar 13) Branch Influenza Virus 2014-01-30 Completed Universit y of Vaccine (3+ yrs) 00:00:00 [facility] dical Branch Pneumococcal 13 2014-01-30 Completed Universit y of Conjugate, PCV13 00:00:00 [facility] dical (Prevnar 13) Branch Pneumococcal 2012-02-16 Completed University o f Polysaccharide, 00:00:00 [place] [facility] PPSV23 (PNEUMOVAX) Branch Influenza Virus 2012-02-16 Completed Universit y of Vaccine 00:00:00 [facility] PPD (TB) 2012-02-16 Completed University of 00:00:00 [facility] Pneumococcal 2012-02-16 Completed University o f Polysaccharide, 00:00:00 [place] [facility] PPSV23 (PNEUMOVAX) Branch Influenza Virus 2012-02-16 Completed Universit y of Vaccine 00:00:00 [facility] PPD (TB) 2012-02-16 Completed University of 00:00:00 [facility] Pneumococcal 2012-02-16 Completed University o f Polysaccharide, 00:00:00 [place] [facility] PPSV23 (PNEUMOVAX) Branch Influenza Virus 2012-02-16 Completed Universit y of Vaccine 00:00:00 [facility] PPD (TB) 2012-02-16 Completed University of 00:00:00 [facility] Pneumococcal 2012-02-16 Completed University o f Polysaccharide, 00:00:00 [place] [facility] PPSV23 (PNEUMOVAX) Branch Influenza Virus 2012-02-16 Completed Universit y of Vaccine 00:00:00 [facility] PPD (TB) 2012-02-16 Completed University of 00:00:00 [facility] Pneumococcal 2012-02-16 Completed University o f Polysaccharide, 00:00:00 [place] [facility] PPSV23 (PNEUMOVAX) Branch Influenza Virus 2012-02-16 Completed Universit y of Vaccine 00:00:00 [facility] PPD (TB) 2012-02-16 Completed University of 00:00:00 [facility] Pneumococcal 2012-02-16 Completed University o f Polysaccharide, 00:00:00 [place] [facility] PPSV23 (PNEUMOVAX) Branch Influenza Virus 2012-02-16 Completed Universit y of Vaccine 00:00:00 [facility] PPD (TB) 2012-02-16 Completed University of 00:00:00 [facility] Pneumococcal 2012-02-16 Completed University o f Polysaccharide, 00:00:00 [facility] ical PPSV23 (PNEUMOVAX) Branch Influenza Virus [...] VACCINE 00:00:00 [facility] PPD (TB) 2010-11-18 Completed University of 00:00:00 [facility] TDAP (ADACEL) 2010-11-18 Completed University of VACCINE 00:00:00 [facility] PPD (TB) 2010-11-18 Completed University of 00:00:00 [facility] TDAP (ADACEL) 2010-11-18 Completed University of VACCINE 00:00:00 [facility] PPD (TB) 2010-11-18 Completed University of 00:00:00 [facility] TDAP (ADACEL) 2010-11-18 Completed University of VACCINE 00:00:00 [facility] PPD (TB) 2010-11-18 Completed University of 00:00:00 [facility] TDAP (ADACEL) 2010-11-18 Completed University of VACCINE 00:00:00 [facility] PPD (TB) 2010-11-18 Completed University of 00:00:00 [facility] TDAP (ADACEL) 2010-11-18 Completed University of VACCINE 00:00:00 [facility] PPD [...] PPD (TB) 2001-10-04 Completed University of 00:00:00 [facility] Pneumococcal 2001-10-04 Completed University o f Polysaccharide, 00:00:00 [place] [facility] PPSV23 (PNEUMOVAX) Branch PPD (TB) 2001-10-04 Completed University of 00:00:00 [facility] Pneumococcal 2001-10-04 Completed University o f Polysaccharide, 00:00:00 [place] [facility] PPSV23 (PNEUMOVAX) Branch PPD (TB) 2001-10-04 Completed University of 00:00:00 [facility] Pneumococcal 2001-10-04 Completed University o f Polysaccharide, 00:00:00 [place] [facility] PPSV23 (PNEUMOVAX) Branch PPD (TB) 2001-10-04 Completed University of 00:00:00 [facility] Pneumococcal 2001-10-04 Completed University o f Polysaccharide, 00:00:00 [place] [facility] PPSV23 (PNEUMOVAX) Branch PPD (TB) 2001-10-04 Completed University of 00:00:00 [facility] Pneumococcal 2001-10-04 Completed University o f Polysaccharide, 00:00:00 [place] [facility] PPSV23 (PNEUMOVAX) Branch PPD (TB) 2001-10-04 Completed University of 00:00:00 [facility] Pneumococcal 2001-10-04 Completed University o f Polysaccharide, 00:00:00 [place] [facility] PPSV23 (PNEUMOVAX) Branch PPD (TB) 2001-10-04 Completed University of 00:00:00 [facility] Vital Signs Vital Name Observation Time Observation Value Comments Source Systolic blood 2022-02-16 21:41:00 169 mm[Hg] Univer sity of pressure [facility] Diastolic blood 2022-02-16 21:41:00 86 mm[Hg] Unive rsity of [facility] Heart rate 2022-02-16 21:41:00 51 /min [facility] Body temperature 2022-02-16 21:41:00 36.56 Amina [facility] rate 2022-02-16 21:41:00 17 /min [facility] Oxygen saturation in 2022-02-16 21:41:00 98 /min [facility] Arterial blood by [facility] Pulse oximetry [place] Body height 2022-02-11 16:02:00 162.6 cm [facility] Body weight 2022-02-11 16:02:00 79.379 kg [facility] BMI 2022-02-11 16:02:00 30.04 kg/m2 [facility] Systolic blood 2021-11-20 13:47:00 165 mm[Hg] Univer sity of pressure [facility] Diastolic blood 2021-11-20 13:47:00 83 mm[Hg] Unive rsity of [facility] Heart rate 2021-11-20 13:47:00 58 /min [facility] Body temperature 2021-11-20 13:42:00 36.39 Amina [facility] ersity [facility] Respiratory rate 2021-11-20 13:42:00 16 /min [facility] Body height 2021-11-20 13:42:00 162.6 cm [facility] Body weight 2021-11-20 13:42:00 84.369 kg [facility] BMI 2021-11-20 13:42:00 31.93 kg/m2 [facility] Systolic blood 2021-07-14 15:18:00 142 mm[Hg] [facility] pressure Diastolic blood 2021-07-14 15:18:00 76 mm[Hg] [facility] Heart rate 2021-07-14 15:18:00 61 [facility] 2021-07-14 15:18:00 [facility]6 [facility] 2021-07-14 15:18:00 94[facility]802 [facility] BMI 2021-07-14 15:18:00 35.87 kg/m2 [facility] Systolic blood 2020-12-08 15:48:00 125 mm[Hg] [facility] pressure Diastolic blood 2020-12-08 15:48:00 76 mm[Hg] [facility] pressure Heart rate 2020-12-08 15:48:00 64 /min [facility] Body temperature 2020-12-08 15:48:00 36.61 Amina [facility] Respiratory rate 2020-12-08 15:48:00 17 /min [facility] Body height 2020-12-08 15:48:00 162.6 cm [facility] Body weight 2020-12-08 15:48:00 98.884 kg [facility] BMI 2020-12-08 15:48:00 37.42 kg/m2 [facility] Oxygen saturation in 2020-12-08 15:48:00 97 /min [facility] Arterial blood by Pulse oximetry Respitory Rate 2020-08-30 13:00:00 [place] Systolic (mm Hg) 2020-08-30 13:00:00 Caesar [facility] Diastolic (mm Hg) 2020-08-30 13:00:00 [facility] [place] Systolic (mm Hg) 2020-08-30 11:00:00 [facility] Diastolic (mm Hg) 2020-08-30 11:00:00 [facility] [place] Temperature Oral (F) 2020-08-30 11:00:00 98.4 F [facility] Respitory Rate 2020-08-30 11:00:00 [facility] [place] Respitory Rate 2020-08-30 10:00:00 [facility] [place] Systolic (mm Hg) 2020-08-30 10:00:00 [facility] Diastolic (mm Hg) 2020-08-30 10:00:00 [facility] [place] Temperature Oral (F) 2020-08-30 00:00:00 96.9 F [facility] Temperature Oral (F) 2020-08-29 11:26:00 97.6 F [facility] Height 2020-08-29 10:30:00 162.56 cm [facility] [place] Weight 2020-08-29 10:30:00 [facility] BMI Calculated 2020-08-29 10:30:00 [facility] [place] Procedures Procedure Date / Time Performing Clinician Source Performed MAGNESIUM 2022-02-15 09:41:00 [facility] BASIC METABOLIC PANEL (NA, 2022-02-15 09:41:00 Sofia Garcia [facility] K, CL, CO2, GLUCOSE, BUN, Medica l Branch CREATININE, CA) CBC WITH DIFF 2022-02-15 09:41:00 [facility] N-TERMINAL PRO-BNP 2022-02-15 09:41:00 Sofia Garcia [facility] BASIC METABOLIC PANEL (NA, 2022-02-13 09:40:00 Sofia Garcia [facility] K, CL, CO2, GLUCOSE, BUN, Medica l Branch CREATININE, CA) CBC WITH DIFF 2022-02-13 09:40:00 [facility] TROPONIN I 2022-02-11 23:41:00 [facility] N-TERMINAL PRO-BNP 2022-02-11 23:41:00 Sofia Garcia [facility] TRANSTHORACIC ECHO (TTE) 2022-02-11 21:26:50 [facility] CT ABDOMEN PELVIS W 2022-02-11 07:45:43 Reilly Means [facility] CONTRAST [facility] RAPID INFLUENZA A/B 2022-02-11 06:54:00 Reilly Means [facility] URINALYSIS 2022-02-11 06:45:00 Reilly Means [facility] URINE CULTURE 2022-02-11 06:45:00 Reilly Means [facility] HB ECG ROUTINE & RHYTHM 2022-02-11 05:22:08 Reilly Means [facility] BLOOD CULTURE SCREEN 2022-02-11 04:58:[address] [facility] TROPONIN I 2022-02-11 04:58:00 Reilly Means [facility] COMP. METABOLIC PANEL 2022-02-11 04:58:00 Reilly Means [facility] ([id number]) Medical [place] CBC WITH DIFF 2022-02-11 04:58:00 Reilly Means [facility] PROTHROMBIN TIME / INR 2022-02-11 04:58:00 Reilly Means [facility] ACTIVATED PARTIAL THRMPLAS 2022-02-11 04:58:00 Reilly Means [facility] N-TERMINAL PRO-BNP 2022-02-11 04:58:00 Reilly Means [facility] LACTIC ACID WHOLE BLOOD 2022-02-11 04:58:[address] [facility] COVID-19 (ID NOW RAPID 2022-02-11 04:58:00 Reilly Means [facility] TESTING) Medical [place] LAB ONLY COVID 2022-02-11 04:58:00 Reilly Means [facility] XR CHEST 1 VW 2022-02-11 04:27:42 Reilly Means [facility] HOSPITAL ADMISSION 2022-02-10 05:01:00 Doctor Unassigned, Univer [facility] ECG 12-LEAD 2021-07-14 15:14:00 Elan Lira [facility] [id number] 2021-06-17 00:00:00 RIKY Freedman [facility] GASTROINTESTINAL PANEL 2020-12-08 22:21:00 [facility] XR ABDOMEN 1 VW 2020-12-08 18:06:32 Eliseo Arce spital OR [place] < 1 HOUR 2020-09-05 22:39:00 Eliseo Arce spital SURGICAL PATHOLOGY REQUEST 2020-09-05 21:54:00 [facility] XR CHEST 1 VW PORTABLE 2020-09-05 19:55:00 [facility] DISCHARGE PATIENT 2020-09-05 17:27:55 Lucas Harris [facility] HI AN ELECTIVE 2020-09-05 16:47:23 Kirit Flood V. [facility] ENDOTRACHEAL AIRWAY EGD, INTRAOPERATIVE 2020-09-05 16:27[facility]00 [facility] 2020-09-05 [facility] TIME (PTT) M. PROTHROMBIN TIME WITH INR 2020-09-05 15:04:00 [facility] M. Plan of Care Planned Activity Planned Date Details Comments Source Future Scheduled 2022-03-25 SHINGLES VACCINES (1 Met [facility] Test 14:48:42 of 2) [code = SHINGLES VACCINES (1 of 2)] Future Scheduled 2022-03-25 BREAST CANCER [facility] Test 14:48:42 SCREENING [code = BREAST CANCER SCREENING] Future Scheduled 2022-03-25 COLONOSCOPY SCREENING [facility] Test 14:48:42 [code = COLONOSCOPY SCREENING] Future Scheduled 2022-03-25 HEPATITIS B VACCINES Met [facility] Test 14:48:42 (1 of 3 - Risk 3-dose series) [code = HEPATITIS B VACCINES (1 of 3 - Risk 3-dose series)] Future Scheduled 2022-03-25 COVID-19 VACCINE (3 - [facility] Test 14:48:42 Booster for Pfizer series) [code = COVID-19 VACCINE (3 - Booster for Pfizer series)] Future Scheduled 2022-03-25 65+ [facility]42 VACCINE (4 - PPSV23 if available, else PCV20) [code = 65+ PNEUMOCOCCAL VACCINE (4 - PPSV23 if available, else PCV20)] Future Scheduled 2022-03-[address] [facility] Test 14:48:42 [code = INFLUENZA VACCINE] Future Scheduled 2022-03-04 BREAST CANCER [facility] Test 14:03:57 SCREENING [code = BREAST CANCER SCREENING] Future Scheduled 2022-03-04 COLONOSCOPY SCREENING [facility] Test 14:03:57 [code = COLONOSCOPY SCREENING] Future Scheduled 2022-03-04 HEPATITIS B VACCINES [facility] Test 14:03:57 (1 of 3 - Risk 3-dose series) [code = HEPATITIS B VACCINES (1 of 3 - Risk 3-dose series)] Future Scheduled 2022-03-04 COVID-19 VACCINE (3 - [facility] Test 14:03:57 Booster for Pfizer series) [code = COVID-19 VACCINE (3 - Booster for Pfizer series)] Future Scheduled 2022-03-04 65+ [facility] 14:03:57 VACCINE (4 - PPSV23 if available, else PCV20) [code = 65+ PNEUMOCOCCAL VACCINE (4 - PPSV23 if available, else PCV20)] Future Scheduled 2022-03-[address] [facility] Test 14:03:57 [code = INFLUENZA VACCINE] Future Scheduled 2022-03-04 SHINGLES VACCINES (1 Met [facility] Test 14:03:57 of 2) [code = SHINGLES VACCINES (1 of 2)] Future Scheduled 2022-03-04 BREAST CANCER [facility] Test 14:03:57 SCREENING [code = BREAST CANCER SCREENING] Future Scheduled 2022-03-04 COLONOSCOPY SCREENING [facility] Test 14:03:57 [code = COLONOSCOPY SCREENING] Future Scheduled 2022-03-04 HEPATITIS B VACCINES [facility] Test 14:03:57 (1 of 3 - Risk 3-dose series) [code = HEPATITIS B VACCINES (1 of 3 - Risk 3-dose series)] Future Scheduled 2022-03-04 COVID-19 VACCINE (3 - [facility] Test 14:03:57 Booster for Pfizer series) [code = COVID-19 VACCINE (3 - Booster for Pfizer series)] Future Scheduled 2022-03-04 65+ [facility] 14:03:57 VACCINE (4 - PPSV23 if available, else PCV20) [code = 65+ PNEUMOCOCCAL VACCINE (4 - PPSV23 if available, else PCV20)] Future Scheduled 2022-03-04 INFLUENZA VACCINE Method [facility] Test 14:03:57 [code = INFLUENZA VACCINE] Future Scheduled 2022-03-04 SHINGLES VACCINES (1 Met [facility] Test 14:03:57 of 2) [code = SHINGLES VACCINES (1 of 2)] Future Scheduled 2022-03-04 BREAST CANCER [facility] Test 14:03:57 SCREENING [code = BREAST CANCER SCREENING] Future Scheduled 2022-03-04 COLONOSCOPY SCREENING [facility] Test 14:03:57 [code = COLONOSCOPY SCREENING] Future Scheduled 2022-03-04 HEPATITIS B VACCINES [facility] Test 14:03:57 (1 of 3 - Risk 3-dose series) [code = HEPATITIS B VACCINES (1 of 3 - Risk 3-dose series)] Future Scheduled 2022-03-04 COVID-19 VACCINE (3 - [facility] Test 14:03:57 Booster for Pfizer series) [code = COVID-19 VACCINE (3 - Booster for Pfizer series)] Future Scheduled 2022-03-04 65+ [facility]AL [facility] 14:03:57 VACCINE (4 - PPSV23 if available, else PCV20) [code = 65+ PNEUMOCOCCAL VACCINE (4 - PPSV23 if available, else PCV20)] Future Scheduled 2022-03-04 INFLUENZA VACCINE Method [facility] Test 14:03:57 [code = INFLUENZA VACCINE] Future Scheduled 2022-03-04 SHINGLES VACCINES (1 Met [facility] Test 14:03:57 of 2) [code = SHINGLES VACCINES (1 of 2)] Future Scheduled 2022-03-04 BREAST CANCER [facility] Test 14:03:57 SCREENING [code = BREAST CANCER SCREENING] Future Scheduled 2022-03-04 COLONOSCOPY SCREENING [facility] Test 14:03:57 [code = COLONOSCOPY SCREENING] Future Scheduled 2022-03-04 HEPATITIS B VACCINES [facility] Test 14:03:57 (1 of 3 - Risk 3-dose series) [code = HEPATITIS B VACCINES (1 of 3 - Risk 3-dose series)] Future Scheduled 2022-03-04 COVID-19 VACCINE (3 - [facility] Test 14:03:57 Booster for Pfizer series) [code = COVID-19 VACCINE (3 - Booster for Pfizer series)] Future Scheduled 2022-03-04 65+ [facility] 14:03:57 VACCINE (4 - PPSV23 if available, else PCV20) [code = 65+ PNEUMOCOCCAL VACCINE (4 - PPSV23 if available, else PCV20)] Future Scheduled 2022-03-04 INFLUENZA VACCINE Method [facility] Test 14:03:57 [code = INFLUENZA VACCINE] Future Scheduled 2022-03-04 SHINGLES VACCINES (1 Met [facility] Test 14:03:57 of 2) [code = SHINGLES VACCINES (1 of 2)] Future Scheduled 2022-02-11 SHINGLES VACCINES (1 Met [facility] Test 13:39:12 of 2) [code = SHINGLES VACCINES (1 of 2)] Future Scheduled 2022-02-11 BREAST CANCER [facility] Test 13:39:12 SCREENING [code = BREAST CANCER SCREENING] Future Scheduled 2022-02-11 COLONOSCOPY SCREENING [facility] Test 13:39:12 [code = COLONOSCOPY SCREENING] Future Scheduled 2022-02-11 HEPATITIS B VACCINES [facility] Test 13:39:12 (1 of 3 - Risk 3-dose series) [code = HEPATITIS B VACCINES (1 of 3 - Risk 3-dose series)] Future Scheduled 2022-02-11 COVID-19 VACCINE (3 - [facility] Test 13:39:12 Booster for Pfizer series) [code = COVID-19 VACCINE (3 - Booster for Pfizer series)] Future Scheduled 2022-02-11 65+ [facility]AL [facility] 13:39:12 VACCINE (4 - PPSV23 or PCV20) [code = 65+ PNEUMOCOCCAL VACCINE (4 - PPSV23 or PCV20)] Future Scheduled 2022-02-11 INFLUENZA VACCINE Method [facility] Test 13:39:12 [code = INFLUENZA VACCINE] Future Scheduled 2022-01-29 SHINGLES VACCINES (1 Met [facility] Test 14:07:20 of 2) [code = SHINGLES VACCINES (1 of 2)] Future Scheduled 2022-01-29 BREAST CANCER [facility] Test 14:07:20 SCREENING [code = BREAST CANCER SCREENING] Future Scheduled 2022-01-29 COLONOSCOPY SCREENING [facility] Test 14:07:20 [code = COLONOSCOPY SCREENING] Future Scheduled 2022-01-29 HEPATITIS B VACCINES [facility] Test 14:07:20 (1 of 3 - Risk 3-dose series) [code = HEPATITIS B VACCINES (1 of 3 - Risk 3-dose series)] Future Scheduled 2022-01-29 COVID-19 VACCINE (3 - Me [facility] Test 14:07:20 Booster for Pfizer series) [code = COVID-19 VACCINE (3 - Booster for Pfizer series)] Future Scheduled 2022-01-29 65+ PNEUMOCOCCAL [facility] Test 14:07:20 VACCINE (4 - PPSV23 or PCV20) [code = 65+ PNEUMOCOCCAL VACCINE (4 - PPSV23 or PCV20)] Future Scheduled 2022-01-[address] [facility] Test 14:07:20 [code = INFLUENZA VACCINE] Future Scheduled 2022-01-29 SHINGLES VACCINES (1 Met [facility] Test 14:07:20 of 2) [code = SHINGLES VACCINES (1 of 2)] Future Scheduled 2022-01-29 BREAST CANCER [facility] Test 14:07:20 SCREENING [code = BREAST CANCER SCREENING] Future Scheduled 2022-01-29 COLONOSCOPY SCREENING [facility] Test 14:07:20 [code = COLONOSCOPY SCREENING] Future Scheduled 2022-01-29 HEPATITIS B VACCINES [facility] Test 14:07:20 (1 of 3 - Risk 3-dose series) [code = HEPATITIS B VACCINES (1 of 3 - Risk 3-dose series)] Future Scheduled 2022-01-29 COVID-19 VACCINE (3 - Me [facility] Test 14:07:20 Booster for Pfizer series) [code = COVID-19 VACCINE (3 - Booster for Pfizer series)] Future Scheduled 2022-01-29 65+ [facility] 14:07:20 VACCINE (4 - PPSV23 or PCV20) [code = 65+ PNEUMOCOCCAL VACCINE (4 - PPSV23 or PCV20)] Future Scheduled 2022-01-[address] [facility] Test 14:07:20 [code = INFLUENZA VACCINE] Future Scheduled 2022-01-29 SHINGLES VACCINES (1 Met [facility] Test 14:07:20 of 2) [code = SHINGLES VACCINES (1 of 2)] Future Scheduled 2022-01-29 BREAST CANCER [facility] Test 14:07:20 SCREENING [code = BREAST CANCER SCREENING] Future Scheduled 2022-01-29 COLONOSCOPY SCREENING [facility] Test 14:07:20 [code = COLONOSCOPY SCREENING] Future Scheduled 2022-01-29 HEPATITIS B VACCINES Met [facility] Test 14:07:20 (1 of 3 - Risk 3-dose series) [code = HEPATITIS B VACCINES (1 of 3 - Risk 3-dose series)] Future Scheduled 2022-01-29 COVID-19 VACCINE (3 - [facility] Test 14:07:20 Booster for Pfizer series) [code = COVID-19 VACCINE (3 - Booster for Pfizer series)] Future Scheduled 2022-01-29 65+ PNEUMOCOCCAL [facility] Test 14:07:20 VACCINE (4 - PPSV23 or PCV20) [code = 65+ PNEUMOCOCCAL VACCINE (4 - PPSV23 or PCV20)] Future Scheduled 2022-01-29 INFLUENZA VACCINE Method [facility] Test 14:07:20 [code = INFLUENZA VACCINE] Future Scheduled 2022-01-29 SHINGLES VACCINES (1 Met [facility] Test 14:07:20 of 2) [code = SHINGLES VACCINES (1 of 2)] Future Scheduled 2022-01-29 BREAST CANCER [facility] Test 14:07:20 SCREENING [code = BREAST CANCER SCREENING] Future Scheduled 2022-01-29 COLONOSCOPY SCREENING [facility] Test 14:07:20 [code = COLONOSCOPY SCREENING] Future Scheduled 2022-01-29 HEPATITIS B VACCINES Met [facility] Test 14:07:20 (1 of 3 - Risk 3-dose series) [code = HEPATITIS B VACCINES (1 of 3 - Risk 3-dose series)] Future Scheduled 2022-01-29 COVID-19 VACCINE (3 - [facility] Test 14:07:20 Booster for Pfizer series) [code = COVID-19 VACCINE (3 - Booster for Pfizer series)] Future Scheduled 2022-01-29 65+ [facility] Test 14:07:20 VACCINE (4 - PPSV23 or PCV20) [code = 65+ PNEUMOCOCCAL VACCINE (4 - PPSV23 or PCV20)] Future Scheduled 2022-01-[address] [facility] Test 14:07:20 [code = INFLUENZA VACCINE] Future Scheduled 2022-01-20 SHINGLES VACCINES (1 Met [facility] Test 06:12:34 of 2) [code = SHINGLES VACCINES (1 of 2)] Future Scheduled 2022-01-20 Screening for [facility] Test 06:12:34 malignant neoplasm of cervix (procedure) [code = 316769249] Future Scheduled 2022-01-20 BREAST CANCER [facility] Test 06:12:34 SCREENING [code = BREAST CANCER SCREENING] Future Scheduled 2022-01-20 COLONOSCOPY SCREENING [facility] Test 06:12:34 [code = COLONOSCOPY SCREENING] Future Scheduled 2022-01-20 HEPATITIS B VACCINES Met [facility] Test 06:12:34 (1 of 3 - Risk 3-dose series) [code = HEPATITIS B VACCINES (1 of 3 - Risk 3-dose series)] Future Scheduled 2022-01-20 COVID-19 VACCINE (3 - [facility] Test 06:12:34 Booster for Pfizer series) [code = COVID-19 VACCINE (3 - Booster for Pfizer series)] Future Scheduled 2022-01-20 65+ [facility] 06:12:34 VACCINE (4 - PPSV23 or PCV20) [code = 65+ PNEUMOCOCCAL VACCINE (4 - PPSV23 or PCV20)] Future Scheduled 2022-01-[address] [facility] Test 06:12:34 [code = INFLUENZA VACCINE] Future Scheduled 2022-01-16 SHINGLES VACCINES (1 Met [facility] Test 12:09:25 of 2) [code = SHINGLES VACCINES (1 of 2)] Future Scheduled 2022-01-16 Screening for [facility] Test 12:09:25 malignant neoplasm of cervix (procedure) [code = 333317317] Future Scheduled 2022-01-16 BREAST CANCER [facility] Test 12:09:25 SCREENING [code = BREAST CANCER SCREENING] Future Scheduled 2022-01-16 COLONOSCOPY SCREENING [facility] Test 12:09:25 [code = COLONOSCOPY SCREENING] Future Scheduled 2022-01-16 HEPATITIS B VACCINES Met [facility] Test 12:09:25 (1 of 3 - Risk 3-dose series) [code = HEPATITIS B VACCINES (1 of 3 - Risk 3-dose series)] Future Scheduled 2022-01-16 COVID-19 VACCINE (3 - Me [facility] Test 12:09:25 Booster for Pfizer series) [code = COVID-19 VACCINE (3 - Booster for Pfizer series)] Future Scheduled 2022-01-16 65+ PNEUMOCOCCAL [facility] Test 12:09:25 VACCINE (4 - PPSV23 or PCV20) [code = 65+ PNEUMOCOCCAL VACCINE (4 - PPSV23 or PCV20)] Future Scheduled 2022-01-[address] [facility] Test 12:09:25 [code = INFLUENZA VACCINE] Future Scheduled 2022-01-14 SHINGLES VACCINES (1 Met [facility] Test 04:11:46 of 2) [code = SHINGLES VACCINES (1 of 2)] Future Scheduled 2022-01-14 Screening for [facility] Test 04:11:46 malignant neoplasm of cervix (procedure) [code = [id number]] Future Scheduled 2022-01-14 BREAST CANCER [facility] Test 04:11:46 SCREENING [code = BREAST CANCER SCREENING] Future Scheduled 2022-01-14 COLONOSCOPY SCREENING [facility] Test 04:11:46 [code = COLONOSCOPY SCREENING] Future Scheduled 2022-01-14 HEPATITIS B VACCINES Met [facility] Test 04:11:46 (1 of 3 - Risk 3-dose series) [code = HEPATITIS B VACCINES (1 of 3 - Risk 3-dose series)] Future Scheduled 2022-01-14 COVID-19 VACCINE (3 - [facility] Test 04:11:46 Booster for Pfizer series) [code = COVID-19 VACCINE (3 - Booster for Pfizer series)] Future Scheduled 2022-01-14 65+ PNEUMOCOCCAL [facility] Test 04:11:46 VACCINE (4 - PPSV23 or PCV20) [code = 65+ PNEUMOCOCCAL VACCINE (4 - PPSV23 or PCV20)] Future Scheduled 2022-01-[address] [facility] Test 04:11:46 [code = INFLUENZA VACCINE] Future Scheduled 2021-08-26 Screening for [facility] Test 13:02:23 malignant neoplasm of cervix (procedure) [code = [id number]] Future Scheduled 2021-08-26 BREAST CANCER [facility] Test 13:02:23 SCREENING [code = BREAST CANCER SCREENING] Future Scheduled 2021-08-26 COLONOSCOPY SCREENING [facility] Test 13:02:23 [code = COLONOSCOPY SCREENING] Future Scheduled 2021-08-26 Screening for [facility] Test 13:02:23 malignant neoplasm of lung (procedure) [code = 485176714] Future Scheduled 2021-08-26 SHINGLES VACCINES (#1) M [facility] Test 13:02:23 [code = SHINGLES VACCINES (#1)] Future Scheduled 2021-08-26 COVID-19 VACCINE (3 - [facility] Test 13:02:23 Pfizer risk 4-dose series) [code = COVID-19 VACCINE (3 - Pfizer risk 4-dose series)] Future Scheduled 2021-08-26 65+ [facility] 13:02:23 VACCINE (4 of 4 - PPSV23) [code = 65+ PNEUMOCOCCAL VACCINE (4 of 4 - PPSV23)] Future Scheduled 2021-08-[address] [facility] Test 13:02:23 [code = INFLUENZA VACCINE] Encounters Start End Encounter Admission Attending Care Care Encounter Source Date/Time Date/Time Type Type Clinicians Facility Department ID 2022-02-18 Outpatient CHW CHW [id number] [place] 14:30:[address] [place] [address] 2021-07-14 Outpatient SADIKOVIC, [facility] [id number] [place] 09:33:51 [facility] 2021-06-02 Outpatient HEMATPOUR, [facility] [id number] [place] 13:58:59 [facility] 2021-04-28 Outpatient HEMATPOUR, [facility] [id number] [place] 11:21:22 KHASHAYAR Healt 2021-03-20 Emergency [facility] [id number] Univers 16:07[facility] 2020-12-12 Outpatient HEMATPOUR, [facility] [id number] [place] 08:16:46 [facility]HASHAYAR Healt h 2020-10-31 Outpatient HEMATPOUR, [facility] [id number] [place] 09:44:50 KHASHAYAR Healt h 2020-09-30 Outpatient HEMATPOUR, [facility] [id number] [place] 13:16:03 KHASHAYAR Healt h 2022-04-07 2022-04-07 Outpatient R [facility] [id number] Univers 20:40:00 20:40:00 ATTENDING [facility] 2022-04-07 2022-04-07 Telephone Devin [facility] 1.2.963.643 [id number] Univers 00:00:00 00:00:[address] 350.1.13.10 ity of [facility] 4.2.7.2.686 Yomi as MATERNAL [phone] Med ical & CHILD [address] [place] [address] 2022-03-05 2022-03-05 Bilingual Spanish Inbound Sales [facility] UN[facility]ERSIT 1.2.840.114 [id number] Univers 13:45:00 14:00:00 Visit Santiago Cardenas [facility] 350.1.13.10 ity of [facility] 4.2.7.2.[place] [id number] [facility] [address] [place] 2022-03-05 2022-03-05 Outpatient R [facility] [id number] Univers 13:45:00 13:45:00 [facility] 2022-02-26 2022-02-26 Outpatient R [facility] [id number] Univers 08:30:00 08:30:00 [facility] 2022-02-26 2022-02-26 Outpatient R [facility] [id number] Univers 08:30:00 08:30:00 [facility] 2022-02-17 2022-02-17 Transition ADELAIDE [facility]ide 1.2.840.114 [id number] Univers 00:00:00 00:00:00 of Care Isaias LYNCH 350.1.13.10 ity of [place] [phone] [facility] [address] [place] 2022-02-10 2022-02-16 Inpatient [facility] [id number] Univers 22:59:00 19:27:00 TOMY [facility] 2022-02-10 2022-02-16 [facility] Reilly Means [facility] 1.2.840.1 14 [id number] Univers 22:59:00 19:27:00 Encounter Ofe Shields [facility] 350.1.13.10 ity of [place] 4.2.7.2.686 [facility] [phone] [facility] [address] ([facility]) 2022-02-11 2022-02-11 Telephone East[facility] 1.2.840.114 [id number] Univers 00:00:00 00:00:00 [facility] 350.1.13.10 i ty of CLINICS 4.2.[place].2.[place] [phone] [place] [address] [place] 2022-01-30 2022-01-30 Telephone [facility], [facility] 1.2.840.114 [id number] Univers 00:00:00 00:00:00 [facility] 350.1.13.10 i ty [place] [id number] [address] 2022-01-06 2022-01-06 Orders Doctor CHRISTENSEN 1.2.840.114 [id number] Univers 00:00:00 00:00:00 Only Unassigned, JACKELINE 350.1.13.10 ity of [place] [facility] 4.2.7.2.686 Yomi as [id number] [address] 2021-12-25 2021-12-25 Orders Doctor FERMIN 1.2.840.114 [id number] Univers 00:00:00 00:00:00 Only Unassigned, JACKELINE 350.1.13.10 ity of [place] [facility] 4.2.7.2.686 Yomi as [id number] [address] 2021-12-12 2021-12-13 Emergency X Bill COLES [facility] ERT [id number] Univers 23:53:00 01:52:00 ity of [facility] 2021-12-12 2021-12-13 Emergency Bill Coles [facility] 1.2.840.114 [id number] Univers 23:53:00 01:52:00 Kiersten BULLOCK 350.1.13.10 i ty of [place].2.7.2.[place] [id number] [address] 2021-11-20 2021-11-20 Bilingual Spanish Inbound Sales [facility] 1.2.840.114 [id number] Univers 09:45:00 10:00:00 [facility] 350.1.13.10 ity of [place] 4[place] [id number] [facility] [address] 2021-11-20 2021-11-20 Office [facility] 1.2.679.133 [id number] Univers 08:30:00 09:00:00 Visit [facility] 350.1.13.10 i ty of CL[place]ICS 4[place] [phone] [place] [address] [place] 2021-11-20 2021-11-20 Outpatient R [facility] [id number] Univers 08:30:00 08:30:00 [facility] 2021-11-20 2021-11-20 Outpatient R [facility] [id number] Univers 08:30:00 08:30:00 [facility] 2021-11-20 2021-11-20 Outpatient R [facility] [id number] Univers 08:30:00 08:30:00 [facility] 2021-11-20 2021-11-20 Outpatient R [facility] [id number] Univers 08:30:00 08:30:00 [facility] 2021-10-24 2021-10-24 Emergency X WALKER [facility] ERT [id number] Univers 16:27:00 22:26:00 [facility] 2021-10-24 2021-10-24 Emergency X WALKER [facility] ERT [id number] Univers 16:27:00 22:26:00 [facility] 2021-10-24 2021-10-24 Emergency Reilly Means [facility] 1.2.840. 114 [id number] Univers 16:27:00 22:26:00 Charity Mcallister TEMECULA 350.1.13.10 ity [facility] 4.2.7.2.686 [facility] [phone] [address] 2021-10-23 2021-10-24 Emergency X [facility] ERT [id number] Univers 20:22:00 02:57:00 CHARITY [facility] 2021-10-23 2021-10-24 Emergency [facility] 1.2.971.740 [id number] Univers 20:22:00 02:57:00 Cozara [facility] 350.1.13.10 ity of [place] 4.2.7.2.686 [facility] [phone] [address] 2021-09-07 2021-09-07 Outpatient R [facility] [id number] Univers 08:00:00 08:00:00 GADIEL barbosa o [facility] 2021-09-07 2021-09-07 Outpatient R [facility] [id number] Univers 08:00:00 08:00:00 GADIEL barbosa o [facility] 2021-08-21 2021-08-21 Outpatient R [facility] [id number] Univers 10:45:00 10:45:00 SANTIAGO charlie [facility] 2021-08-21 2021-08-21 Bilingual Spanish Inbound Sales Santiago Cardenas 1.2.840.1 [id number] Univers 10:45:00 10:45:00 Visit [facility] 24882.1.1 ity of 3.104.2.7 [place] .3.981805 Medica l .8 [place] 2021-08-21 2021-08-21 Office Ronald, 1.2.840.9 [id number] Univers 08:30:00 09:00:00 Visit Santiago 75890.1.1 ity of 3.104.2.7 [place] .3.231860 Medica l .8 [place] 2021-08-21 2021-08-21 Office [facility], [facility] 1.2.338.008 [id number] Univers 08:30:00 09:00:00 Visit Santiago [facility] 350.1.13.10 i ty of [facility] 4.2.7.2.686 [facility] [phone] [facility] porfirio [address] [place] 2021-08-21 2021-08-[address] [facility] [id number] Univers 08:30:00 08:30:00 SANTIAGO barbosa [facility] 2021-08-21 2021-08-21 Travel 1.2.840.1 1.2.395.946 [id number] Univers 00:00:00 00:00:00 86945.1.1 350.1.13.10 ity of 3.104.2.7 4.[place].3.698 [place] .3.458219 084.8 Medica l .8 [place] 2021-08-14 2021-08-14 Telephone East, 1.2.840.0 [id number] Univers 00:00:00 00:00:00 Santiago 18462.1.1 ity of 3.104.2.7 [place] .3.364613 Medica l .8 [place] 2021-08-13 2021-08-13 Telephone East, 1.2.840.0 [id number] Univers 00:00:00 00:00:00 Santiago 91456.1.1 ity of 3.104.2.7 [place] .3.463833 Medica l .8 [place] 2021-08-11 2021-08-[address] [facility] [id number] Univers 08:00:00 08:00:00 SANTIAGO charlie [facility] 2021-08-05 2021-08-05 Inpatient [facility] [id number] [facility] 05:24:00 05:24:00 Mike 31 [facility] 2021-07-20 2021-07-[address] [facility] [id number] Univers 10:00:00 10:00:00 [facility] 2021-07-14 2021-07-14 Office KIMBERLEY Lira 6400 1.2.840.114 [id number] [place] 08:45:00 09:34:01 Visit Elan ROMERO 350.1.13.58 Health 9.2.7.2.686 [id number] 1 2021-07-09 2021-07-09 Telephone [facility], [facility] 6400 1.2.840.114 [id number] [place] 00:00:00 00:00:[address] 350.1.13.58 Health 9.2.7.2.686 [id number] 1 2021-07-09 2021-07-09 Telephone [facility], [facility] 6400 1.2.840.114 [id number] [place] 00:00:00 00:00:[address] 350.1.13.58 Health 9.2.7.2.686 [id number] 1 2021-07-03 2021-07-03 Outpatient R EAST, [facility] [id number] Univers 08:00:00 08:00:00 SANTIAGO barbosa [facility] 2021-06-17 2021-06-17 Inpatient Rasgary, [facility] INTE.02 [id number] [facility] 10:56:00 14:36:[address] [place] [address] 2021-06-15 2021-06-15 Outpatient R SELF, [facility] [id number] Univers 10:15:00 11:07:21 [facility] 2021-06-15 2021-06-15 Outpatient R SELF, [facility] [id number] Univers 10:15:00 10:15:00 [facility] 2021-06-15 2021-06-15 Outpatient R SELF, [facility] [id number] Univers 10:15:00 10:15:00 [facility] 2021-06-15 2021-06-15 Orders Doctor 1.2.840.5 [id number] Univers 00:00:00 00:00:00 Only Unassigned, 02804.1.1 ity of [place] 3.104.2.7 [place] .3.458822 Medica l .8 Branch 2021-06-15 2021-06-15 Travel 1.2.840.1 1.2.483.563 [id number] Univers 00:00:00 00:00:00 01220.1.1 350.1.13.10 ity of 3.104.2.7 4.[place].7.3.698 [place] .3.973354 084.8 Medica l .8 Branch 2021-06-11 2021-06-11 Refill [facility], [facility] 1.2.538.145 [id number] Univers 00:00:00 00:00:00 [facility] 350.1.13.10 i ty of CLINICS 4[place]2.[place] [id number] [facility] 089 [place] 2021-06-11 2021-06-11 Refill East, 1.2.840.2 [id number] Univers 00:00:00 00:00:00 Santiago 87261.1.1 ity of 3.104.2.7 [place] .3.083519 Medica l .8 [place] 2021-06-05 2021-06-05 Outpatient R [facility] [id number] Univers 09:00:00 09:00:00 SANTIAGO ity of [facility] 2021-06-02 2021-06-02 Telephone [facility], [facility] 1.2.840.114 [id number] Univers 00:00:00 00:00:00 [facility] 350.1.13.10 i ty of CL[place]ICS 4.2.7.2.[place] [id number] [place] [address] [place] 2021-06-02 2021-06-02 Telephone East, 1.2.840.6 [id number] Univers 00:00:00 00:00:00 Santiago 98037.1.1 ity of 3.104.2.7 [place] .3.338856 Medica l .8 Branch 2021-05-29 2021-05-29 Telephone East, 1.2.840.0 [id number] Univers 00:00:00 00:00:00 Santiago 50259.1.1 ity of 3.104.2.7 [place] .3.996388 Medica l .8 Branch 2021-05-29 2021-05-29 Telephone East, 1.2.840.1 [id number] [facility] 00:00:00 00:00:00 Santiago 20891.1.1 [facility] 3.104.2.7 [facility]3.372037 Medica [facility] Branch 2021-05-25 2021-05-25 Outpatient R RODO, [facility] [id number] Univers 08:00:00 08:00:00 GADIEL rodas [facility] 2021-04-29 2021-04-29 Outpatient R LALA, [facility] [id number] Univers 08:00:00 08:00:00 NIKOLAI familia [facility] 2021-04-28 2021-04-28 Telephone Kinjal, [facility] 6400 1.2.840.114 [id number] [place] 00:00:00 00:00:[address] 350.1.13.58 Health 9.2.7.2.686 [id number] 1 2021-04-28 2021-04-28 Telephone Jailyn 1.2.840.8 [id number] 21 [id number] Methodi 00:00:00 00:00:[address] 3.430.2.7 Hospit a .3.512373 l .8 2021-04-28 2021-04-28 Telephone Jailyn, 1.2.840.0 [id number] 21 [id number] Methodi 00:00:00 00:00:[address] 3.430.2.7 Hospit a .3.449748 l .8 2021-03-31 2021-03-31 Orders Carol Ann, 1.2.840.1 [id number] Methodi 00:00:00 00:00:00 Only Sarai Lieberman 50339.1.1 979 s t 3.430.2.7 Hospit a .3.781679 l .8 2021-03-30 2021-03-30 Outpatient R RODO, [facility] [id number] Univers 08:45:00 08:45:00 GADIEL rodas [facility] 2021-03-24 2021-03-24 Telephone Jailyn 1.2.840.5 [id number] 21 [id number] Methodi 00:00:00 00:00:[address] 3.430.2.7 Hospit a .3.925716 l .8 2021-02-13 2021-02-13 Telephone Ronald, 1.2.840.2 [id number] Univers 00:00:00 00:00:00 Santiago 96211.1.1 ity of 3.104.2.7 [place] .3.740446 Medica l .8 Branch 2021-01-28 2021-01-28 Outpatient R LALA, [facility] [id number] Univers 08:45:00 09:37:00 NIKOLAI ity of [facility] 2021-01-28 2021-01-28 Travel 1.2.840.1 1.2.490.178 [id number] Univers 00:00:00 00:00:00 76200.1.1 350.1.13.10 ity of 3.104.2.7 4[place].7.3.698 [place] .3.157494 084.8 Medica l .8 Branch 2021-01-19 2021-01-19 Telephone Prabhu, 1.2.840.1 [id number] Methodi 00:00:00 00:00:[address] 3.430.2.7 Hospit a .3.151267 l .8 2021-01-04 2021-01-04 Dmitry Bass, 1.2.840.3 [id number] Univers 00:00:00 00:00:00 (Out) Dagoberto H 83383.1.1 ity of 3.104.2.7 [place] .3.974939 Medica l .8 Branch 2021-01-04 2021-01-04 Dmitry Bass 1.2.840.8 [id number] Univers 00:00:00 00:00:00 (Out) Dagoberto H 52990.1.1 ity of 3.104.2.7 [place] .3.449912 Medica l .8 Branch 2021-01-03 2021-01-03 Letter Shelia, 1.2.840.2 [id number] Univers 00:00:00 00:00:00 (Out) Dagoberto H 92742.1.1 ity of 3.104.2.7 [place] .3.543903 Medica l .8 [place] 2021-01-03 2021-01-03 Letter Shelia, 1.2.840.8 [id number] Univers 00:00:00 00:00:00 (Out) Dagoberto H 94635.1.1 ity of 3.104.2.7 [place] .3.291622 Medica l .8 [place] 2021-01-02 2021-01-02 Outpatient R [facility] [id number] Univers 13:40:00 13:40:00 ity of [facility] 2021-01-02 2021-01-02 Laboratory [place] Franks 1.2.840.7 [id number] Univers 12:14:13 12:57:34 Only Lab, [place] 99696.1.1 ity of 3.104.2.7 [place] .3.372294 Medica l .8 [place] 2021-01-02 2021-01-02 Laboratory [place] 1.2.840.9 [id number] Univers 12:14:13 12:57:34 Only Lab, [facility] [place] [address].1.1 ity of 3.104.2.7 [place] .3.247050 Medica l .8 [place] 2021-01-02 2021-01-02 Travel 1.2.840.1 1.2.500.450 [id number] [facility] 00:00:00 00:00:00 13366.1.1 350.1.13.10 ity of 3.104.2.7 4.[place].3.698 [place] .3.696529 084.8 Medica l .8 [place] 2021-01-02 2021-01-02 Letter Doctor 1.2.840.4 [id number] Univers 00:00:00 00:00:00 (Out) Unassigned, 44950.1.1 [place] 3.104.2.7 [place] .3.613350 Medica l .8 [place] 2021-01-02 2021-01-02 Letter Doctor 1.2.840.4 [id number] Univers 00:00:00 00:00:00 (Out) Unassigned, 59311.1.1 [place] 3.104.2.7 [place] .3.600054 Medica l .8 [place] 2021-01-02 2021-01-02 Travel 1.2.840.1 1.2.758.305 [id number] 2306 [facility] 00:00:00 00:00:00 42714.1.1 350.1.13.10 ity of 3.104.2.7 4.[place]7.3.698 [place] .3.420357 084.8 Medica l .8 [place] 2021-01-02 2021-01-02 Letter Doctor 1.2.840.7 [id number] Univers 00:00:00 00:00:00 (Out) Unassigned, 11454.1.1 [place] 3.104.2.7 [place] .3.071659 Medica l .8 [place] 2021-01-02 2021-01-02 Letter Doctor 1.2.840.7 [id number] Univers 00:00:00 00:00:00 (Out) Unassigned, 25418.1.1 [place] 3.104.2.7 [place] .3.568513 Medica l .8 [place] 2020-12-22 2020-12-22 Telephone [place], 1.2.840.5 [id number] [facility] 00:00:00 00:00:00 Robbi Hairston 21069.1.1 i ty of 3.104.2.7 [place] .3.361608 Medica l .8 [place] 2020-12-22 2020-12-22 Telephone [place], 1.2.840.2 [id number] [facility] 00:00:00 00:00:00 [place] R 74677.1.1 i ty of 3.104.2.7 [place] .3.961620 Medica l .8 [place] 2020-12-12 2020-12-12 Office [place], UTP 6400 1.2.840.114 12 [id number] [place] 07:42:02 08:18:[address] 350.1.13.58 Health 9.2.7.2.686 [id number] 1 2020-12-12 2020-12-12 Office Hematpour, UTP 6400 1.2.840.114 12 [id number] 07:42:02 08:18:[address] 350.1.13.58 9.2.7.2.686 [id number] 1 2020-12-09 2020-12-09 Telephone Carol Ann, 1.2.840.1 [id number] Methodi 00:00:00 00:00:00 Sarai M. 85714.1.1 316 s t 3.430.2.7 Hospit a .3.641222 l .8 2020-12-08 2020-12-08 [facility], 1.2.840.1 [id number] 2100 [id number] Methodi 12:35:54 23:59:00 Encounter Ray 08706.1.[address] 3.430.2.7 Hospit a .3.620373 l .8 2020-12-08 2020-12-08 [facility], 1.2.840.1 [id number] 96838 73730 Methodi 17:25:00 17:30:[address] 3.430.2.7 Hospit a .3.214077 l .8 2020-12-08 2020-12-08 [facility], 1.2.840.1 [id number] 66280 44135 Methodi 10:30:00 11:39:56 Visit Ray 07646.1.[address] 3.430.2.7 Hospit a .3.006253 l .8 2020-12-08 2020-12-08 Travel 1.2.840.1 1.2.647.380 2741 364331 Methodi 00:00:00 00:00:[address] 3.430.2.7 0.2.7.3.698 Ho spita .3.531801 084.8 l .8 2020-12-02 2020-12-02 Bilingual Spanish Inbound Sales Santiago Cardenas 1.2.840.1 [id number] [facility] 10:20:06 10:36:19 Visit [facility] 26506.1.1 ity of 3.104.2.7 [place] .3.948148 Medica l .8 [place] 2020-12-02 2020-12-02 Bilingual Spanish Inbound Sales Santiago Cardenas 1.2.840.1 [id number] [facility] 10:20:06 10:36:19 Visit [facility] 27207.1.1 ity of 3.104.2.7 [place] .3.944458 Medica l .8 [place] 2020-12-02 2020-12-02 Bilingual Spanish Inbound Sales [facility] UNIVERSIT 1.2.840.114 8 [id number] 10:20:06 10:36:19 Visit HEALTH 350.1.13.10 CLINICS 4.2.7.2.686 536.9903847 316 2020-12-02 2020-12-02 Office Ronald, 1.2.840.4 [id number] 528 Univers 08:31:37 09:01:37 Visit Santiago 53320.1.1 ity of 3.104.2.7 [place] .3.022629 Medica l .8 [place] 2020-12-02 2020-12-02 Outpatient R RONALD [facility] [id number] Univers 09:00:00 09:00:00 SANTIAGO itcharlie of [facility] 2020-11-25 2020-11-25 Office Beltran, 1.2.840.5 [id number] 865 Univers 11:06:30 11:58:14 Visit Robbi Hairston 22471.1.1 i ty of 3.104.2.7 [place] .3.977773 Medica l .8 [place] 2020-11-25 2020-11-25 Office Devin, 1.2.840.1 [id number] 865 Univers 11:06:30 11:58:14 Visit Robbi Marika 88211.1.1 i ty of 3.104.2.7 [place] .3.123473 Medica l .8 [place] 2020-11-25 2020-11-25 [facility] 1.2.840.114 [id number] 11:06:30 11:58:[address] CLEANER 350.1.13.10 REGIONAL 4.2.7.2.686 MATERNAL [id number] & CHILD [address] [place] [address] 2020-11-25 2020-11-25 Outpatient R [facility] [id number] Univers 11:00:00 11:00:00 ity of [facility] 2020-11-25 2020-11-25 Telephone Devin, 1.2.840.2 [id number] 855 [id number] Univers 00:00:00 00:00:00 Robbi Hairston 76794.1.1 i ty of 3.104.2.7 [place] .3.424663 Medica l .8 [place] 2020-11-25 2020-11-25 Refill East, 1.2.840.1 [id number] 592 Univers 00:00:00 00:00:00 Santiago 76420.1.1 ity of 3.104.2.7 [place] .3.133912 Medica l .8 [place] 2020-11-25 2020-11-25 Travel 1.2.840.1 1.2.325.403 4777 0247 Univers 00:00:00 00:00:00 54840.1.1 350.1.13.10 ity of 3.104.2.7 4.2.7.3.698 [place] .3.502741 084.8 Medica l .8 [place] 2020-11-25 2020-11-25 Orders Doctor 1.2.840.4 [id number] 064 Univers 00:00:00 00:00:00 Only Unassigned, 23165.1.1 ity of [place] 3.104.2.7 [place] .3.183773 Medica l .8 Branch 2020-11-25 2020-11-25 Telephone Devin, 1.2.840.5 [id number] 855 34357 Univers 00:00:00 00:00:00 Robbi Hairston 85771.1.1 i ty of 3.104.2.7 [place] .3.281469 Medica l .8 Branch 2020-11-25 2020-11-25 Refill [facility], 1.2.840.5 [id number] 20953 592 Univers 00:00:00 00:00:00 Santiago 12655.1.1 ity of 3.104.2.7 [place] .3.663032 Medica l .8 Branch 2020-11-25 2020-11-25 Travel 1.2.840.1 1.2.748.688 2192 0247 Univers 00:00:00 00:00:00 85309.1.1 350.1.13.10 ity of 3.104.2.7 4.2.7.3.698 [place] .3.873876 084.8 Medica l .8 Branch 2020-11-25 2020-11-25 Orders Doctor 1.2.840.7 [id number] 064 Univers 00:00:00 00:00:00 Only Unassigned, 38677.1.1 ity of [place] 3.104.2.7 [place] .3.715791 Medica l .8 [place] 2020-11-25 2020-11-25 [facility] 1.2.415.689 6078 4592 00:00:00 00:00:00 [facility] 350.1.13.10 [facility] 4.2.7.2.686 120.0712172 089 2020-11-25 2020-11-25 [facility] 1.2.886.033 8690 0821 00:00:00 00:00:[address] CLEANER 350.1.13.10 REGIONAL 4.2.7.2.686 MATERNAL [id number] & CHILD [address] [place] [address] 2020-11-14 2020-11-14 Abstract Clark, 1.2.840.1 [id number] 08654 52489 Methodi 00:00:00 00:00:[address] 3.430.2.7 Hospit a .3.212349 l .8 2020-11-14 2020-11-14 Telephone Clark, 1.2.840.1 [id number] 2100 [id number] Methodi 00:00:00 00:00:[address] 3.430.2.7 Hospit a .3.196212 l .8 2020-11-12 2020-11-[address] [facility] [address] [id number] Univers 08:30:00 08:30:00 SANTIAGO barbosa [facility] 2020-11-07 2020-11-07 Telephone Agustina Ortiz 6400 1.2.840.11 4 [id number] [place] 00:00:00 00:00:[address] 350.1.13.58 Health 9.2.7.2.686 [id number] 1 2020-11-07 2020-11-07 Telephone KIMBERLEY Ortiz 6400 1.2.840.114 124 [id number] 00:00:00 00:00:[address] 350.1.13.58 9.2.7.2.686 516.8900044 1 2020-10-31 2020-10-31 Office HematpoKIMBERLEY bell 6400 1.2.840.114 12 [id number] [place] 07:54:00 09:45:[address] 350.1.13.58 Health 9.2.7.2.686 [id number] 1 2020-10-30 2020-10-30 Abstract Rody Maguire UTP 6400 1.2.840.1 14 [id number] [place] 00:00:00 00:00:[address] 350.1.13.58 Health 9.2.7.2.686 [id number] 1 2020-10-29 2020-10-29 Refill East, 1.2.840.4 [id number] 400 Univers 00:00:00 00:00:00 Santiago 81643.1.1 ity of 3.104.2.7 [place] .3.543201 Medica l .8 Branch 2020-10-29 2020-10-29 Refill East, 1.2.840.1 [id number] 400 Univers 00:00:00 00:00:00 Santiago 81600.1.1 ity of 3.104.2.7 [place] .3.492381 Medica l .8 Branch 2020-10-27 2020-10-27 Telephone Jailyn, 1.2.840.4 [id number] 21 [id number] Methodi 00:00:00 00:00:[address] 3.430.2.7 Hospit a .3.088676 l .8 2020-10-24 2020-10-24 Telephone Rodas, 1.2.840.1 [id number] 2100 [id number] Methodi 00:00:00 00:00:[address] 3.430.2.7 Hospit a .3.116234 l .8 2020-10-22 2020-10-22 Outpatient R RODO, [facility] [id number] [facility] 13:00:00 13:00:00 GADIEL vogel f [facility] 2020-10-22 2020-10-22 Travel 1.2.840.1 1.2.961.004 3947 3839 Univers 00:00:00 00:00:00 51737.1.1 350.1.13.10 ity of 3.104.2.7 4.2.7.3.698 [place] .3.147414 084.8 Medica l .8 Branch 2020-10-22 2020-10-22 Travel 1.2.840.1 1.2.542.665 5946 3839 Univers 00:00:00 00:00:00 95371.1.1 350.1.13.10 ity of 3.104.2.7 4.2.7.3.698 [place] .3.430908 084.8 Medica l .8 Branch 2020-10-13 2020-10-13 Outpatient R RODO, [facility] [id number] Univers 08:45:00 08:45:00 GADIEL rodas [facility] 2020-10-06 2020-10-12 Telemedici [facility], 1.2.840.1 [id number] 21 [id number] Methodi 15:30:00 00:08:46 ne Ray 52588.1.[address] 3.430.2.7 Hospit a .3.600209 l .8 2020-09-30 2020-09-30 [facility], 1.2.840.4 [id number] Methodi 00:00:00 00:00:[address] 3.430.2.7 Hospit a .3.414571 l .8 2020-09-21 2020-09-21 Travel 1.2.840.1 1.2.469.190 4254 153992 Methodi 00:00:00 00:00:[address] 3.430.2.7 0.2.7.3.698 Ho spita .3.783522 084.8 l .8 2020-09-06 2020-09-06 [facility] 1.2.840.1 [id number] 39538 65006 Methodi 17:42:30 23:59:[address] 3.430.2.7 Hospit a .3.140599 l .8 2020-09-06 2020-09-06 [facility], 1.2.840.1 [id number] 2099 [id number] Methodi 16:50:00 17:41:00 Encounter Ray [address]29.1.[address] 3.430.2.7 Hospit a .3.685000 l .8 2020-09-05 2020-09-05 [facility], 1.2.840.1 [id number] 2099 775078 Methodi 09:17:00 19:45:00 Encounter Ray [address]127.1.[address] 3.430.2.7 Hospit a .3.524741 l .8 2020-09-05 2020-09-05 Surgery Chihara, 1.2.840.1 [id number] 79458 05455 Methodi 11:30:00 13:15:[address] 3.430.2.7 Hospit a .3.930045 l .8 2020-09-05 2020-09-05 Anesthesia Remigio, 1.2.840.1 [id number] 848 [id number] Methodi 11:27:00 12:20:00 Event Anupamwathi 39855.1.1 243 s t V. 3.430.2.7 Hospit a .3.955176 l .8 2020-09-05 2020-09-05 Travel 1.2.840.1 1.2.221.004 9507 079069 Methodi 00:00:00 00:00:[address] 3.430.2.7 0.2.7.3.698 Ho spita .3.135952 084.8 l .8 2020-09-04 2020-09-04 Telephone Meisenbach, 1.2.840.1 [id number] Methodi 00:00:00 00:00:00 Sarai M. 28994.1.1 762 s t 3.430.2.7 Hospit a .3.780027 l .8 2020-09-02 2020-09-02 Telephone Meisenbach, 1.2.840.7 [id number] Methodi 00:00:00 00:00:00 Sarai M. 28766.1.1 344 s t 3.430.2.7 Hospit a .3.469159 l .8 2020-08-29 2020-08-30 Bedded Formerly [facility] [id number] 275 [facility] 10:20:00 14:10:00 Outpatient [facility] 00 l [facility] 2020-08-29 2020-08-30 Outpatient HEMATPOUR, [facility] CAR 7500 [facility] 05:20:00 09:10:00 BEVERLY 2020-08-06 2020-08-06 Office East, 1.2.840.7 [id number] Univers 08:03:23 09:17:49 Visit Santiago 95614.1.1 ity of 3.104.2.7 [place] .3.060798 Medica l .8 [place] 2020-08-06 2020-08-06 Outpatient R EAST, [facility] [id number] Univers 08:30:00 08:30:00 SANTIAGO ity of [facility] 2020-07-14 2020-07-14 Outpatient R SELF, [facility] [id number] Univers 09:30:00 09:30:00 GADIEL barbosa o f [facility] 2020-07-14 2020-07-14 Travel 1.2.840.1 1.2.731.191 1746 2575 Univers 00:00:00 00:00:00 55115.1.1 350.1.13.10 ity of 3.104.2.7 4.2.7.3.698 [place] .3.672110 084.8 Medica l .8 [place] 2020-07-14 2020-07-14 Orders Doctor 1.2.840.4 [id number] Univers 00:00:00 00:00:00 Only Unassigned, 53908.1.1 ity [place] 3.104.2.7 [place] .3.495507 Medica l .8 [place] 2020-06-16 2020-06-16 Outpatient R SELF, [facility] [id number] Univers 08:00:00 08:00:00 GADIEL ity o f [facility] 2020-06-06 2020-06-06 Telephone East, 1.2.840.3 [id number] [id number] Univers 00:00:00 00:00:00 Santiago 95196.1.1 ity of 3.104.2.7 [place] .3.516531 Medica l .8 [place] 2020-06-04 2020-06-04 Bilingual Spanish Inbound Sales Santiago Cardenas 1.2.840.1 [id number] Univers 09:31:58 09:40:12 Visit [facility] 71402.1.1 ity of 3.104.2.7 [place] .3.603612 Medica l .8 Branch 2020-06-04 2020-06-04 Office [facility], [facility] 1.2.848.292 9513 9729 Univers 08:13:41 09:28:25 Visit [facility] 350.1.13.10 i ty of CLINICS 4.2.7.2.686 Yomialeshia isreal 035.2304275 [facility] porfirio 089 Branch 2020-06-04 2020-06-04 Outpatient R [facility] [id number] Univers 08:30:00 08:30:00 SANTIAGO ity of [facility] 2020-06-04 2020-06-04 Orders Doctor 1.2.840.2 [id number] 079 Univers 00:00:00 00:00:00 Only Unassigned, 38522.1.1 ity [place] 3.104.2.7 [place] .3.986708 Medica l .8 Branch 2020-05-19 2020-05-19 Telephone East, 1.2.840.6 [id number] 804 [id number] Univers 00:00:00 00:00:00 Santiago 82074.1.1 ity of 3.104.2.7 [place] .3.367434 Medica l .8 Branch 2020-04-24 2020-04-24 Telephone East, 1.2.840.7 [id number] 799 43551 Univers 00:00:00 00:00:00 Santiago 51133.1.1 ity of 3.104.2.7 [place] .3.383396 Medica l .8 Branch 2020-04-14 2020-04-14 Outpatient R [facility] [id number] Univers 09:00:00 09:00:00 SANTIAGO ity of [facility] 2020-04-14 2020-04-14 Telephone East, 1.2.840.9 [id number] 797 [id number] Univers 00:00:00 00:00:00 Santiago 40287.1.1 ity of 3.104.2.7 [place] .3.107770 Medica l .8 Branch 2020-03-31 2020-03-31 Outpatient R EAST, [facility] [id number] Univers 08:30:00 08:30:00 SANTIAGO ity [facility] 2020-03-03 2020-03-03 Outpatient R SELF, [facility] [id number] Univers 08:00:00 08:00:00 GADIEL barbosa o f [facility] 2020-03-03 2020-03-03 Outpatient R SELF, [facility] [id number] Univers 08:00:00 08:00:00 GADIEL barbosa o f [facility] 2020-03-03 2020-03-03 Travel 1.2.840.1 1.2.408.047 6661 [id number] Univers 00:00:00 00:00:00 83230.1.1 350.1.13.10 ity of 3.104.2.7 4.2.7.3.698 [place] .3.137490 084.8 Medica l .8 [place] 2020-02-06 2020-02-06 Telephone East, 1.2.840.3 [id number] 781 [id number] Univers 00:00:00 00:00:00 Santiago 34756.1.1 ity of 3.104.2.7 [place] .3.353053 Medica l .8 [place] 2020-01-26 2020-01-26 Emergency Caridad, 1.2.840.7 [id number] 779 [id number] Univers 10:03:00 13:05:00 Cynise 11811.1.1 ity of 3.104.2.7 [place] .3.230210 Medica l .8 Branch 2020-01-26 2020-01-26 Travel 1.2.840.1 1.2.503.486 6108 0120 Univers 00:00:00 00:00:00 80510.1.1 350.1.13.10 ity of 3.104.2.7 4.2.7.3.698 [place] .3.454790 084.8 Medica l .8 [place] 2020-01-25 2020-01-25 Outpatient R EAST, [facility] [id number] Univers 08:30:00 08:30:00 SANTIAGO barbosa [facility] 2020-01-25 2020-01-25 Telemedici [place], 1.2.840.6 [id number] Univers 07:36:49 08:06:49 ne Visit Santiago 00038.1.1 ity of 3.104.2.7 [place] .3.113967 Medica l .8 [place] 2020-01-16 2020-01-16 Outpatient R EAST, [facility] [id number] Univers 08:00:00 08:00:00 SANTIAGO itcharlie [facility] 2020-01-16 2020-01-16 Telephone East, 1.2.840.4 [id number] Univers 00:00:00 00:00:00 Santiago 20477.1.1 ity of 3.104.2.7 [place] .3.287566 Medica l .8 [place] 2020-01-14 2020-01-14 Outpatient R SELF, [facility] [id number] Univers 08:00:00 08:00:00 GADIEL rodas [facility] 2019-12-31 2019-12-31 Outpatient R SELF, [facility] [id number] Univers 08:45:00 08:45:00 GADIEL rodas [facility] 2019-10-17 2019-10-17 Outpatient R EAST, [facility] [id number] Univers 08:30:00 08:30:00 SANTIAGO barbosa [facility] 2019-10-12 2019-10-12 Outpatient R EAST, [facility] [id number] Univers 13:00:00 13:00:00 SANTIAGO barbosa [facility] 2019-10-12 2019-10-12 Telemedici [place], 1.2.840.0 [id number] Univers 07:38:30 08:08:30 ne Visit Santiago 60938.1.1 ity of 3.104.2.7 [place] .3.380617 Medica l .8 [place] 2019-10-08 2019-10-08 Outpatient R SELF, [facility] [id number] Univers 10:15:00 10:15:00 GADIEL rodas [facility] 2019-10-03 2019-10-03 Case Assman, 1.2.840.8 [id number] Univers 00:00:00 00:00:00 Management Michael Corbin 90403.1.1 i ty of 3.104.2.7 [place] .3.502824 Medica l .8 [place] 2019-09-27 2019-09-27 Telephone East, 1.2.840.5 [id number] [id number] Univers 00:00:00 00:00:00 Santiago 60582.1.1 ity of 3.104.2.7 [place] .3.376058 Medica l .8 [place] 2019-09-04 2019-09-04 Refill East, 1.2.840.3 [id number] Univers 00:00:00 00:00:00 Santiago 10804.1.1 ity of 3.104.2.7 [place] .3.738979 Medica l .8 [place] 2019-07-24 2019-07-24 Outpatient R [facility] [id number] Univers 08:30:00 08:30:00 DONALDSON ity [facility] 2019-07-17 2019-07-17 Outpatient R [facility] [id number] Univers 10:00:00 10:00:00 SANTIAGO ity [facility] 2019-06-15 2019-06-15 Telephone East, 1.2.840.5 [id number] [id number] Univers 00:00:00 00:00:00 Santiago 87285.1.1 ity of 3.104.2.7 [place] .3.114635 Medica l .[address] [place] [address] 2019-06-13 2019-06-13 Telephone Team, [facility] 1.2.840.8 [id number] Univers 00:00:00 00:00:00 Health 62845.1.1 ity of [place] 3.104.2.7 [place] .3.888189 Medica l .8 [place] 2019-05-10 2019-05-10 Refill East, 1.2.840.1 [id number] Univers 00:00:00 00:00:00 Santiago 32839.1.1 ity of 3.104.2.7 [place] .3.742917 Medica l .8 [place] 2019-05-09 2019-05-09 Refill Ronald, 1.2.840.7 [id number] Univers 00:00:00 00:00:00 Santiago 99326.1.1 ity of 3.104.2.7 [place] .3.490136 Medica l .8 [place] 2019-04-30 2019-04-30 Outpatient R RODO, [facility] [id number] Univers 10:15:00 10:33:05 GADIEL ity o f [facility] 2019-04-18 2019-04-18 Bilingual Spanish Inbound Sales Santiago Cardenas 1.2.840.1 [id number] Univers 10:00:39 10:44:31 Visit [facility] 14547.1.1 ity of 3.104.2.7 [place] .3.230103 Medica l .8 [place] 2019-04-18 2019-04-18 Outpatient R RONALD, [facility] [id number] Univers 10:00:00 10:44:31 SANTIAGO ity of [facility] 2019-04-18 2019-04-18 Office Ronald, 1.2.840.1 [id number] 005 Univers 08:27:44 09:53:27 Visit Santiago 63726.1.1 ity of 3.104.2.7 [place] .3.421127 Medica l .8 [place] 2019-04-18 2019-04-18 Orders Doctor 1.2.840.0 [id number] Univers 00:00:00 00:00:00 Only Unassigned, 89854.1.1 ity [place] 3.104.2.7 [place] .3.544195 Medica l .8 [place] 2019-04-11 2019-04-11 Refill Ronald, 1.2.840.2 [id number] 033 Univers 00:00:00 00:00:00 Santiago 23518.1.1 ity of 3.104.2.7 [place] .3.179101 Medica l .8 [place] 2019-04-09 2019-04-09 Refill Ronald, 1.2.840.3 [id number] Univers 00:00:00 00:00:00 Santiago 02566.1.1 ity of 3.104.2.7 [place] .3.868453 Medica l .8 Branch 2019-04-03 2019-04-03 Telephone Team, [facility] 1.2.840.7 [id number] Univers 00:00:00 00:00:00 Health 04551.1.1 ity of [place] 3.104.2.7 [place] .3.564271 Medica l .8 [place] 2019-03-27 2019-03-27 Telephone Self, 1.2.840.8 [id number] 723 [id number] Univers 00:00:00 00:00:00 Gadiel 57813.1.1 ity of 3.104.2.7 [place] .3.766383 Medica l .8 Branch 2019-01-17 2019-01-17 Office Ronald, 1.2.840.9 [id number] 820 Univers 07:37:21 10:32:51 Visit Santiago 37559.1.1 ity of 3.104.2.7 [place] .3.815383 Medica l .8 Branch 2019-01-04 2019-01-12 Office Eveline Hansen 1.2.840.4 [id number] Univers 11:19:32 11:08:05 Visit Mariela 70024.1.1 ity of 3.104.2.7 [place] .3.620008 Medica l .8 Branch 2019-01-10 2019-01-10 Telephone Ephraimcharlie, 1.2.840.4 [id number] 709 [id number] Univers 00:00:00 00:00:00 Eladio Inman 24070.1.1 ity of 3.104.2.7 [place] .3.342886 Medica l .8 Branch 2018-12-18 2018-12-18 Office Geraldine, 1.2.840.1 [id number] Univers 08:48:45 09:13:43 Visit Leyda 32914.1.1 it y of 3.104.2.7 [place] .3.087182 Medica l .8 Branch 2018-10-30 2018-10-30 Telephone Ronald, 1.2.840.3 [id number] [id number] Univers 00:00:00 00:00:00 Santiago 92173.1.1 ity of 3.104.2.7 [place] .3.776255 Medica l .8 [place] 2018-10-23 2018-10-23 Orders Doctor 1.2.840.6 [id number] Univers 00:00:00 00:00:00 Only Unassigned, 94295.1.1 ity of [place] 3.104.2.7 [place] .3.055074 Medica l .8 [place] 2018-10-23 2018-10-23 Nurse Selvin, 1.2.840.3 [id number] Univers 00:00:00 00:00:00 Triage Stefanie 42517.1.1 ity of 3.104.2.7 [place] .3.148901 Medica l .8 [place] 2018-10-23 2018-10-23 Telephone Self, 1.2.840.1 [id number] 695 [id number] Univers 00:00:00 00:00:00 Gadiel 62991.1.1 ity of 3.104.2.7 [place] .3.664995 Medica l .8 [place] 2018-10-20 2018-10-20 Telephone Self, 1.2.840.4 [id number] 695 [id number] Univers 00:00:00 00:00:00 Gadiel 67126.1.1 ity of 3.104.2.7 [place] .3.306509 Medica l .8 [place] Results Test Description Test Time Test Comments Results Result Comments Source BLOOD CULTURE SCREEN 2022-02-16 06:01:07 Test Item Value Reference Range Interpretation Comme nts Blood Culture-Aerobic (test No organisms isolated No growth Previous preliminary code = 02416-4) verified res ult was Culture In Prog [...] urs on 02/14/2022 at 05 23 CDT Blood Culture-Anaerobic No organisms isolated No growth Previous preliminary (test code = 61572-3) verifi ed result was Culture In Prog [...] CDT Lab Interpretation (test Normal code = 20207-1) [id number]07 Test Item Value Reference Range Interpretation Comments Blood Culture-Aerobic No organisms No growth Previo us (test code = 17099-2) isolated prelim inary verified result was Culture [...] Culture-Anaerobic isolated preliminar y (test code = 01780-9) verifi ed result was Culture In Progress [...] CDT Lab Interpretation Normal (test code = 38959-6) [id number] 10:49:10 Test Item Value Reference Range Interpretation Comments NT-proBNP (test code 2660 pg/mL See_Comment H [Autom ated = [id number]) message] The system which generated this result transmitted reference range : <=125. The reference range was not used to interpret this result as normal/abnormal . KYLE (test code = YKLE) Biotin has been reported to cause a negative bias, interpret results relative to patient's use of biotin. Lab Interpretation Abnormal (test code = 27608-0) [facility] METABOLIC PANEL (NA, K, CL, CO2, GLUCOSE, BUN, CREATININE, CA)2022-02-15 10:44:07 Test Item Value Reference Range Interpretation Comments NA (test code = 134 mmol/L 135-145 L 6325780561) K (test code = 3.2 mmol/L 3.5-5 L 5423936675) CL (test code = 98 mmol/L 98-108 4234239362) CO2 TOTAL (test code = 27 mmol/L 23-31 1024466367) AGAP (test code = 2-16 4506777690) BUN (test code = 19 mg/dL 7-23 9309659878) GLUCOSE (test code = 102 mg/dL 70-110 1395404854) CREATININE (test code = 0.95 mg/dL 0.5-1.04 6488893562) CALCIUM (test code = 8.5 mg/dL 8.6-10.6 L 5144233850) eGFR (test code = mL/min/1.73m2 4838574604) KYLE (test code = KYLE) Association of [...] tests). Lab Interpretation Abnormal (test code = 49003-2) [facility]07 Test Item Value Reference Range Interpretation Comments MAGNESIUM (test code = 3521091877) 1.8 mg/dL 1.7-2.4 Lab Interpretation (test code = Normal 11222-4) [facility] [id number] 10:12:06 Test Item Value Reference Range Interpretation [...] RDW-SD (test code = 47.8 fL 39-49.9 15754-4) RDW-CV (test code = 15.2 % 12-15.5 788-0) PLT (test code = See_Comment L [Automated 777-3) message] The sy stem which generated this result transmitted reference range : 166 - 358 10*3/ ?L. The reference r abbey was not used to interpret this result as normal/abnormal . MPV (test code = 8.9 fL 9.5-12.9 L 50024-0) NRBC/100 WBC (test See_Comment [Automat ed code = 4177770652) message] The system which generated this result transmitted reference range : 0.0 - 10.0 /100 WBCs. The refer ence range was not u sed to interpret th is result as normal/abnormal . NRBC x10^3 (test code See_Comment [Auto mated = 7740844203) message] The s ystem which generated this result transmitted reference range : 10*3/?L. The reference range was not used to interpret this result as normal/abnormal . GRAN MAT (NEUT) % 65.9 % (test code = 770-8) IMM GRAN % (test code 0.30 % = 1127333654) LYMPH % (test code = 21.0 % 736-9) MONO % (test code = 10.1 % 5905-5) EOS % (test code = 2.4 % 713-8) BASO % (test code = 0.3 % 706-2) GRAN MAT x10^3(ANC) 2.49 10*3/uL 1.88-7.09 (test code = 5632469886) IMM GRAN x10^3 (test 0-0.06 code = 5619461704) LYMPH x10^3 (test code 0.79 10*3/uL 1.32-3.29 L = 731-0) MONO x10^3 (test code 0.38 10*3/uL 0.33-0.92 = 742-7) EOS x10^3 (test code = 0.09 10*3/uL 0.03-0.39 711-2) BASO x10^3 (test code 0.01-0.07 = 704-7) Lab Interpretation Abnormal (test code = 11962-9) [facility] WITH [id number] 11:18:28 Test Item Value Reference Range Interpretation Comments WBC (test code = See_Comment L [Automated 6790-2) message] The sy stem which generated this result transmitted reference range : 4.30 - 11.10 10*3/?L. The reference range was not used to interpret this result as normal/abnormal . RBC (test code = See_Comment L [Automated 829-8) message] The sy stem which generated this [...] RDW-SD (test code = 49.5 fL 39-49.9 13018-0) RDW-CV (test code = 15.5 % 12-15.5 788-0) PLT (test code = See_Comment L [Automated 777-3) message] The sy stem which generated this result transmitted reference range : 166 - 358 10*3/ ?L. The reference r abbey was not used to interpret this result as normal/abnormal . MPV (test code = 11.4 fL 9.5-12.9 38583-8) IPF % (test code = 8.7 % 1.3-7.7 H Platelet count 5298528997) measured by fluorescence method. NRBC/100 WBC (test See_Comment [Automat ed code = 1365267808) message] The system which generated this result transmitted reference range : 0.0 - 10.0 /100 WBCs. The refer ence range was not u sed to interpret th is result as normal/abnormal . NRBC x10^3 (test code See_Comment [Auto mated = 3953593145) message] The s ystem which generated this result transmitted reference range : 10*3/?L. The reference range was not used to interpret this result as normal/abnormal . GRAN MAT (NEUT) % 62.0 % (test code = 770-8) IMM GRAN % (test code 0.80 % = 7776555783) LYMPH % (test code = 22.2 % 736-9) MONO % (test code = 9.6 % 5905-5) EOS % (test code = 5.1 % 713-8) BASO % (test code = 0.3 % 706-2) GRAN MAT x10^3(ANC) 2.21 10*3/uL 1.88-7.09 (test code = 3495864714) IMM GRAN x10^3 (test 0.03 10*3/uL 0-0.06 code = 2606321719) LYMPH x10^3 (test code 0.79 10*3/uL 1.32-3.29 L = 731-0) MONO x10^3 (test code 0.34 10*3/uL 0.33-0.92 = 742-7) EOS x10^3 (test code = 0.18 10*3/uL 0.03-0.39 711-2) BASO x10^3 (test code 0.01-0.07 = 704-7) POLYCHROMASIA (test 2+ See_Comment [Automa arpit code = 20144-1) message] The system which generated this result [...] . Lab Interpretation Abnormal (test code = 06447-1) [facility] METABOLIC PANEL (NA, K, CL, CO2, GLUCOSE, BUN, CREATININE, CA)2022-02-13 10:39:07 Test Item Value Reference Range Interpretation Comments NA (test code = 136 mmol/L 135-145 1175621678) K (test code = 4.1 mmol/L 3.5-5 5318455405) CL (test code = 102 mmol/L 98-108 4801823484) CO2 TOTAL (test code = 27 mmol/L 23-31 5824290979) AGAP (test code = 2-16 2041154033) BUN (test code = 22 mg/dL 7-23 5815496447) GLUCOSE (test code = 94 mg/dL 70-110 5464896247) CREATININE (test code = 0.94 mg/dL 0.5-1.04 8724402057) CALCIUM (test code = 8.1 mg/dL 8.6-10.6 L 6092230906) eGFR (test code = mL/min/1.73m2 5463808267) KYLE (test code = KYLE) Association of [...] tests). Lab Interpretation Abnormal (test code = 47174-5) [facility] 01:50:10 Test Item Value Reference Range Interpretation Comments Height (test code = in 1029254897) Weight (test code = lbs 8210568082) Systolic BP (test code mmHg = 8425391430) Diastolic BP (test code mmHg = 1690263623) Heart Rate (test code = bpm 9065810285) BSA (test code = 1.85 m2 1708875237) IVS (test code = 1.22 cm 4645850748) Interventricular Septum 1.22 cm Diastolic Thickness by 2D (test code = 4196499) LVIDD (test code = 5.00 cm 6559539565) Left Ventricular End 117.9 mL Diastolic Volume by Teichholz Method (test code = 9689995) LVPWD (test code = 1.22 cm 5194250288) PW (test code = 1.22 cm 0.6-1.6 0528103397) EF(Teich) (test code = 74.60 % 2592912854) LVIDS (test code = 2.80 cm 7310940665) Left Ventricular End 29.9 mL Systolic Volume by Teichholz Method (test code = 8660431) FS (test code = 44 % 4466406311) EF - 2D (test code = 74.60 % 75855713) LVOT diameter (test 2.16 cm code = 9388909704) LVOT area (test code = 3.70 cm2 9380923203) Ao root diam (test code 3.40 cm = 8455592929) Aortic root (test code 3.4 cm = 0900363579) Ao root annulus (test 3.4 cm code = 7213284898) LA size (test code = 3.4 cm 0686447742) TR Peak Spencer (test code 330.0 cm/s = 3830176178) Triscuspid Valve mmHg Regurgitation Peak Gradient (test code = 6589683396) PV REGURGITATION PEAK mmHg GRADIENT (test code = 7501798263) PI dec slope (test code 137.20 cm/s2 = 2582218794) LAV(MOD-sp4) (test code 102.90 mL = 9058045122) MV Peak E Spencer (test 84.1 cm/s code = 0460223770) MV Peak A Spencer (test 40.1 cm/s code = 8349380858) E/A ratio (test code = ratio 3663671386) MV valve area p 1/2 3.70 cm2 method (test code = 6482589085) MV dec slope (test code 413.00 cm/s2 = 6642332937) MV P1/2t max spencer (test 83.70 cm/s code = 6152390723) MV Prop V (test code = 41.80 cm/s 3001612704) Tapse (test code = 1.83 cm 4158825853) LVOT stroke volume 96.90 cm3 (test code = 6342435128) LVOT peak spencer (test 125.5 cm/s code = 6485583745) LVOT mn grad (test code mmHg = 0400925796) AV LVOT peak gradient mmHg (test code = 9978935764) LVOT peak VTI (test 26.4 cm code = 7900693696) LV V1 mean (test code = 78.10 cm/s 2131521887) Aortic valve mean 103.7 cm/s velocity (test code = 0066752436) Ao peak spencer (test code 165.6 cm/s = 9813476993) Ao VTI (test code = 37.2 cm 5606315911) AV area by cont VTI 2.6 cm2 (test code = 8650535666) AV area peak spencer (test 2.8 cm2 code = 5660751331) Ao max PG (test code = 11.00 mm[Hg] 5400208241) AV peak gradient (test mmHg code = 7413595327) AV valve area (test 2.60 cm2 code = 7429515131) AV mean gradient (test mmHg code = 2106005864) LA Volume Index (BP) 55.2 mL/m2 (test code = 6146287074) LA volume (BP) (test 102.1 mL code = 6044853380) LAV(MOD-sp2) (test code 86.10 mL = 9867796806) A2C EF (test code = 61.20 % 7588064366) EF(sp2-el) (test code = 61.60 % 9508597199) SV(MOD-sp2) (test code 47.10 mL = 0433816284) LV Diastolic Volume 70.7 mL (BP) (test code = 8996124311) A4C EF (test code = 53.00 % 4140890500) EF(MOD-bp) (test code = 56.70 % 7876044276) EF(sp4-el) (test code = 53.90 % 7621137826) LV Systolic Volume (BP) 30.6 mL (test code = 2756335567) SV(MOD-bp) (test code = 40.10 mL 4822725178) SV(MOD-sp4) (test code 32.40 mL = 8934592331) SV(sp4-el) (test code = 33.10 mL 2950930621) EF (test code = 7151408575) Left Ventricular Stroke 40.1 mL Volume by 2-D Biplane-MOD (test code = 3669038) LV Diastolic Volume 38.2 mL/m2 Index (BP) (test code = 9116963222) LV Systolic Volume 16.5 mL/m2 Index (BP) (test code = 7526143240) Radiology Study observation (narrative) (test code = 02126-6) KYLE (test code = KYEL) ?Left?Ventricle: Left ventricle size is normal. Moderately [...] 1.00The left ventricular wall motion is normal. [facility] [id number] 05:45:01 Test Item Value Reference Interpretation Comments Range TROPONIN I (test See_Comment [Automated code = 2187620822) message] The system which generated this result [...] biotin. Lab Interpretation Normal (test code = 33191-0) [facility] OHO-[id number] 05:41:40 Test Item Value Reference Range Interpretation Comments NT-proBNP (test code 4250 pg/mL See_Comment H [Autom ated = 9231699643) message] The system which generated this result transmitted reference range : <=125. The reference range was not used to interpret this result as normal/abnormal . KYLE (test code = KYLE) Biotin has been reported to cause a negative bias, interpret results relative to patient's use of biotin. Lab Interpretation Abnormal (test code = 40094-2) [facility] [id number] 05:35:21 Test Item Value Reference Range Interpretation Comments APTT Patient (test See_Comment [Automat ed code = 3173-2) message] The system which generated this result transmitted reference range : 23 - 38 Seconds . The reference range was not used to interpr et this result as normal/abnormal . KYLE (test code = KYLE) The [facility] patient population mean normal value for aPTT is 30 seconds. Lab Interpretation Normal (test code = 73671-1) [facility]PROT[facility]OMBIN [facility] / [id number] 05:33:21 Test Item Value Reference Range Interpretation [...] tions. Lab Interpretation (test Normal code = 55163-4) [facility]OL[facility] (20519)2022-02-11 05:33:21 Test Item Value Reference Range Interpretation Comments NA (test code = 137 mmol/L 135-145 0493441229) K (test code = 4.3 mmol/L 3.5-5 2295624637) CL (test code = 103 mmol/L 98-108 6634491332) CO2 TOTAL (test code = 25 mmol/L 23-31 1734020299) AGAP (test code = 2-16 5743130073) BUN (test code = 19 mg/dL 7-23 7660323482) GLUCOSE (test code = 120 mg/dL 70-110 H 7989776590) CREATININE (test code = 1.15 mg/dL 0.5-1.04 H 7182996608) TOTAL BILI (test code = 0.9 mg/dL 0.1-1.4 5124325808) CALCIUM (test code = 8.9 mg/dL 8.6-10.6 9175407602) T PROTEIN (test code = 6.6 g/dL 6.3-8.2 4328959402) ALBUMIN (test code = 4.0 g/dL 3.5-5 4013554154) ALK PHOS (test code = 73 U/L 34-122 3785406817) ALTv (test code = 18 U/L 5-35 1742-6) AST(SGOT) (test code = 31 U/L 13-40 8791884269) eGFR (test code = mL/min/1.73m2 0802930779) KYLE (test code = KYLE) Association of [...] tests). Lab Interpretation Abnormal (test code = 46407-4) [facility] WITH [id number] 05:14:37 Test Item Value Reference Range Interpretation Comments WBC (test code = See_Comment [Automated 5834-2) message] The sy stem which generated this result transmitted reference range : 4.30 - 11.10 10*3/?L. The reference range was not used to interpret this result as normal/abnormal . RBC (test code = See_Comment L [Automated 382-8) message] The sy stem which generated this [...] RDW-SD (test code = 47.9 fL 39-49.9 72547-1) RDW-CV (test code = 14.9 % 12-15.5 788-0) PLT (test code = See_Comment L [Automated 777-3) message] The sy stem which generated this result transmitted reference range : 166 - 358 10*3/ ?L. The reference r abbey was not used to interpret this result as normal/abnormal . MPV (test code = 9.1 fL 9.5-12.9 L 87938-3) NRBC/100 WBC (test See_Comment [Automat ed code = 7323091710) message] The system which generated this result transmitted reference range : 0.0 - 10.0 /100 WBCs. The refer ence range was not u sed to interpret th is result as normal/abnormal . NRBC x10^3 (test code See_Comment [Auto mated = 0661785647) message] The s ystem which generated this result transmitted reference range : 10*3/?L. The reference range was not used to interpret this result as normal/abnormal . GRAN MAT (NEUT) % 78.5 % (test code = 770-8) IMM GRAN % (test code 0.20 % = 9846588398) LYMPH % (test code = 11.6 % 736-9) MONO % (test code = 8.4 % 5905-5) EOS % (test code = 1.1 % 713-8) BASO % (test code = 0.2 % 706-2) GRAN MAT x10^3(ANC) 3.45 10*3/uL 1.88-7.09 (test code = 5634658868) IMM GRAN x10^3 (test 0-0.06 code = 4850203306) LYMPH x10^3 (test code 0.51 10*3/uL 1.32-3.29 L = 731-0) MONO x10^3 (test code 0.37 10*3/uL 0.33-0.92 = 742-7) EOS x10^3 (test code = 0.05 10*3/uL 0.03-0.39 711-2) BASO x10^3 (test code 0.01-0.07 = 704-7) Lab Interpretation Abnormal (test code = 73127-0) [facility] Coronavirus 2019 Nzzauvd3990-76-77 18:08:00 Test Item Value Reference Range Interpretation [...] det ection of nucleic acids f rom gxyZKES-KfV-0 v irus and diagnosis of SA RS-CoV-2 virusinfection. It is an Emergency Use Authorization ( EUA) testauthorized by the U.S. FDA. BASIC METABOLIC [id number] 09:37:00 Test Item Value Reference Range Interpretation [...] = 9.0 mg/dL 8.0-10.5 N CA) PROTHROMBIN [id number] 09:32:00 Test Item Value Reference Range Interpretation [...] (to prevent recurrent infar ct). 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 [facility] - XR CHEST 1 [id number] 00:00:00 [facility] 1955 Sex: F FAX: Urmila KellyBibiana DanielFrancisco Kristen VARELA [phone] [place]: St: ADM FAX: Mike Scales MD [phone] FAX: Bahman Chopra [phone] Name: LIO WATTS [facility] : 1955 Age/S: 66/F [address] [place] [address] Blvd Unit #: [id number] Loc: [place] [address] Phys: Bahman Chopra [facility] Acct: [id number] Dis Date: Status: ADM IN PHONE #: [phone] Exam Date: 06/17/2021 1320 FAX #: [phone] Reason: WATCHMAN EXAMS: CPT CODE: [id number] XR CHEST 1 V 38809 PROCEDURE INFORMATION: Exam: XR Chest Exam date [...] Mike Lund MD; Bahman Chopra Technologist: RT aTylor(R) Trnbob Date/Time/By: 06/17/2021 (8955) : By: Susanna Orig Print D/T: S: 06/17/2021 (1176) PAGE 1 Signed ReportCOVID 19 Asymptomatic IH [...] high or waivedcomplexit y tests. BASIC METABOLIC [id number] 11:37:00 Test Item Value Reference Range Interpretation [...] code = 9.0 mg/dL 8.0-10.5 N CA) LHRRGCKRQI5179-80-13 11:37:00 Test Item Value Reference Range Interpretation Comments PREALBUMIN (test code = PREALB) 24.3 mg/dL 16.0-40.0 N PROTHROMBIN [id number] 11:03:00 Test Item Value Reference Range Interpretation [...] (to prevent recurrent infar ct). CBC W/AUTO JFNU8035-17-79 10:59:00 Test Item Value Reference Range Interpretation [...] 0.0-0.1 N NRBC#) - XR CHEST 2 [id number] 00:00:00 [facility] : 1955 Sex: F FAX: Carmenza Kelly DO [phone] [place]: St: PRE FAX: Mike Scales MD [phone] Name: LIO WATTS [facility] Tano Garcia : 1955 Age/S: 66/F [address] [place] [address] Bl Unit #: [id number] Loc: [place], [place] [address]Vcja: Mike Lund MD Acct: [id number] Dis Date: Status: PRE SDC PHONE #: [phone] Exam Date: 06/16/2021 1120 FAX #: [phone] Reason: PREOP EXAMS: CPT CODE: [id number] XR CHEST 2 V 44556 PROCEDURE INFORMATION: Exam: XR Chest Exam date [...] MD Technologist: RT Andree(R) Trnscrd Date/Time/By: 06/16/2021 (5487) : By: [email or web address] Orig Print D/T: S: 06/16/2021 (1834) PAGE 1 Signed ReportGastrointestinal ocqyp6503-92-47 04:35:05 Test Item Value Reference Interpretation Comments [...] Rotavirus PCR (test Not Detected code = 5280912) Salmonella PCR (test Not Detected code = [...] PCR Not Detected (test code = 7124) [facility] siuwopv7140-96-38 19:30:47 Test Item Value Reference Range Interpretation Comments Case number (test [id number] code = 5673001) Surgical pathology See link below for PDF report (test code = Lab Report 2255) Result status (test This is Supplemental code = 5635789) Report for [id number] [facility]TpxlgzpzMNOORKSCBM7555-22-84 16:31:00 Test Item Value Reference Range Interpretation Comments POC Activated Clotting Time (test code 153 s = POC Activated Clotting Time) [facility] HospitalOnzwkeeXBJBGXPUZY9607-19-55 16:31:00 Test Item Value Reference Range Interpretation Comments POC Activated Clotting Time (test code 153 s = POC Activated Clotting Time) [facility] HospitalMyvxrdnTGVMJLGKWM2530-52-73 16:31:00 Test Item Value Reference Range Interpretation Comments POC Activated Clotting Time (test code 153 s = POC Activated Clotting Time) [facility] HospitalRckuufbCIYMASIAQW1085-78-18 16:31:00 Test Item Value Reference Range Interpretation Comments POC Activated Clotting Time (test code 153 s = POC Activated Clotting Time) [facility] HospitalDtaqavdCDJYUZFDOI6230-00-35 16:31:00 Test Item Value Reference Range Interpretation Comments POC Activated Clotting Time (test code 153 s = POC Activated Clotting Time) [facility] HospitalWwnlagkBDNXDWCSBO1774-63-81 16:31:00 Test Item Value Reference Range Interpretation Comments POC Activated Clotting Time (test code 153 s = POC Activated Clotting Time) [facility] HospitalAdmuthjZBSDYUUGGP6159-72-26 16:31:00 Test Item Value Reference Range Interpretation Comments POC Activated Clotting Time (test code 153 s = POC Activated Clotting Time) [place] [id number] 14:37:00 Test Item Value Reference Range Interpretation Comments POC Activated Clotting Time (test code 454 s = POC Activated Clotting Time) [facility] HospitalOxlfjhiVPRPXVRZZH3115-54-75 14:37:00 Test Item Value Reference Range Interpretation Comments POC Activated Clotting Time (test code 454 s = POC Activated Clotting Time) [facility] HospitalKbekeqyTEVVLPZYXY7088-96-13 14:37:00 Test Item Value Reference Range Interpretation Comments POC Activated Clotting Time (test code 454 s = POC Activated Clotting Time) [facility] HospitalSdgfzmuZVWHABOWXT0766-01-00 14:37:00 Test Item Value Reference Range Interpretation Comments POC Activated Clotting Time (test code 454 s = POC Activated Clotting Time) [facility] HospitalJeuuficAKWPITNVCU6853-93-99 14:37:00 Test Item Value Reference Range Interpretation Comments POC Activated Clotting Time (test code 454 s = POC Activated Clotting Time) [facility] HospitalUalnfjcOPOLUSVZKG8007-01-85 14:37:00 Test Item Value Reference Range Interpretation Comments POC Activated Clotting Time (test code 454 s = POC Activated Clotting Time) [facility] HospitalYkftnszTOTVMILJOX2137-05-41 14:37:00 Test Item Value Reference Range Interpretation Comments POC Activated Clotting Time (test code 454 s = POC Activated Clotting Time) [facility] HospitalLcjyawmQEQLSTWPMQ5090-28-39 14:13:00 Test Item Value Reference Range Interpretation Comments POC Activated Clotting Time (test code 354 s = POC Activated Clotting Time) [facility] HospitalIrfoptiHFHGVOLRXC3746-16-46 14:13:00 Test Item Value Reference Range Interpretation Comments POC Activated Clotting Time (test code 354 s = POC Activated Clotting Time) [facility] HospitalYfngzmbIGAOTFWWZC9963-68-17 14:13:00 Test Item Value Reference Range Interpretation Comments POC Activated Clotting Time (test code 354 s = POC Activated Clotting Time) [facility]mQUY[facility]QHEVHD8592-96-23 14:13:00 Test Item Value Reference Range Interpretation Comments POC Activated Clotting Time (test code 354 s = POC Activated Clotting Time) [facility] AllenOvnmwhcRPRNMGKVYR1692-42-63 14:13:00 Test Item Value Reference Range Interpretation Comments POC Activated Clotting Time (test code 354 s = POC Activated Clotting Time) [facility] HospitalNlpbgvrULXFFFEQLN7661-09-21 14:13:00 Test Item Value Reference Range Interpretation Comments POC Activated Clotting Time (test code 354 s = POC Activated Clotting Time) [facility] AllenBktjwapQZUZLPIYNE8343-58-51 14:13:00 Test Item Value Reference Range Interpretation Comments POC Activated Clotting Time (test code 354 s = POC Activated Clotting Time) [facility] GGBHAOS4076-31-36 10:37:00Negative (08/29/20 5:37 AM) [facility] HermannCHEM BGLFW0907-55-74 10:37:81060Jkvtjarw HermannCHEM PANEL 2020-08-29 10:37:0028[facility] HermannCHEM HZWIP1691-75-48 10:37:001.01[facility] HermannCHEM PNZTV7041-07-92 10:37:51844Vqmvgrym HermannCHEM PCPOB0150-00-04 10:37:003.8[facility] HermannCHEM LLVPZ6957-11-53 10:37:11480Ytdkkfum HermannCHEM OEOZO8982-64-86 10:37:0028[facility] HermannCHEM ITXCZ2645-08-63 10:37:009.8 [facility] HermannCHEM MNJIP0545-57-25 10:37:0011.8[facility] HermannCHEM PANEL 2020-08-29 10:37:0059[facility] HermannCHEM FDHHM5741-14-10 10:37:002.9[facility] GbmyfuvCXFTCOSSTP9240-22-81 10:37:006.8[facility] HnqpizeKOJNNXUWNC0380-76-12 10:37:004.47[facility] IfmxmkgIYACPLRJMA7428-23-67 10:37:0010.6[facility] KDOYHWWWMP8912-80-03 10:37:0034.0[facility] WcvrnvxHIZRJVPJOL4562-03-53 10:37:00 76.1[facility] GurszzpVTOEQCFVKY5665-44-58 10:37:00 Test Item Value Reference Range Interpretation Comments MCH (test code = MCH) 23.8 pg 27.0-31.0 [facility] SeqwwkoGQXUVKKOFV2025-28-97 10:37:0031.3[facility] HermannHEMATOLOGY 2020-08-29 10:37:0018.2[facility] FwmpnouXGBJWYCTJT8676-38-83 10:37:92149Dntvgrfs KlrjpeiNBKXYYBNQD0342-74-72 10:37:007.5[facility] OzxbaxuUUVZHOSEAH0687-98-01 10:37:00 Test Item Value Reference Range Interpretation Comments PT (test code = PT) 12.8 s 12.0-14.7 [facility] FiaznihFCPQUNFGIB7472-96-80 10:37:00 Test Item Value Reference Range Interpretation Comments INR (test code = INR) 0.97 1 0.85-1.17 [facility] NmryslmZDVKJAHPIV3540-26-32 10:37:00 Test Item Value Reference Range Interpretation Comments PTT (test code = PTT) 25.0 s 22.9-35.8 [facility] YgyqusbBOBNISFURR4138-22-45 10:37:0070.5[facility] HermannHEMATOLOGY 2020-08-29 10:37:0018.8[facility] KxutezgFGOGNBBCFR4973-34-17 10:37:009.5[facility] IodlomuYSGJTWFXAI7242-59-04 10:37:000.9[facility] VjxdzfoRZVVRTZRRX9440-47-10 10:37:000.3[facility] WjbkzaiJJFRZRREKJ6935-77-07 10:37:004.8[facility] WGLXGBZHIW6618-60-76 10:37:001.3[facility] WvwfjfoFNGBVKWUJG3565-72-54 10:37:000.6 [facility] QoyctzrZEFAPPMABO6217-46-27 10:37:000.1[facility] HermannHEMATOLOGY 2020-08-29 10:37:001+ *ABN*(08/29/20 5:37 AM)[facility] BoznvgwZXMXVWRHRU9883-95-92 10:37:00Not Detected (08/29/20 5:37 AM)[facility] HermannBLOOD BANK RESULTS 2020-08-29 10:37:00Negative (08/29/20 5:37 AM)[facility] HermannCHEM XVWOJ1852-49-16 10:37:70392Jxhsqgnd HermannCHEM XHUUU9937-70-59 10:37:0028[facility] HermannCHEM MPPJK7525-08-90 10:37:001.01[facility] HermannCHEM JOUPL5505-50-51 10:37:08239 [facility] HermannCHEM CQRAS4776-67-08 10:37:003.8[facility] HermannCHEM PANEL 2020-08-29 10:37:76361Umyhatda HermannCHEM ZIULB9131-94-09 10:37:0028[facility] HermannCHEM DXBAI8594-28-86 10:37:009.8[facility] HermannCHEM KNTQY4127-63-23 10:37:0011.8[facility] HermannCHEM CLWAH5043-02-12 10:37:0059[facility] HermannCHEM JMRSQ7803-18-98 10:37:002.9[facility] FfrpdegNGKWPTCOJZ1085-90-01 10:37:006.8 [facility] AopbbivDWALFMHAFU0144-54-31 10:37:004.47[facility] HermannHEMATOLOGY 2020-08-29 10:37:0010.6[facility] TixprlcXVFAPXDHHJ6102-71-54 10:37:0034.0[facility] LewuyyjUEDYMJIHLX1633-60-64 10:37:0076.1[facility] EiujvjyEQGLYKUJND6225-26-57 10:37:00 Test Item Value Reference Range Interpretation Comments MCH (test code = MCH) 23.8 pg 27.0-31.0 [facility] AchnvhjWXETQUVFLN4897-69-22 10:37:0031.3[facility] HermannHEMATOLOGY 2020-08-29 10:37:0018.2[facility] EaiscpdLFEBXMTFMM1654-46-04 10:37:23524Szcoatuu SwfirxvBZLLMMMSFE8272-18-78 10:37:007.5[facility] NtwqtwrKQLADVTKHU0725-33-19 10:37:00 Test Item Value Reference Range Interpretation Comments PT (test code = PT) 12.8 s 12.0-14.7 [facility] SnpbdctSWDFQWMVXK5556-02-03 10:37:00 Test Item Value Reference Range Interpretation Comments INR (test code = INR) 0.97 1 0.85-1.17 [facility] IwjihbdPRKRYNTWML3480-06-21 10:37:00 Test Item Value Reference Range Interpretation Comments PTT (test code = PTT) 25.0 s 22.9-35.8 [facility] YeqvhokRFBYAUKJIG6141-75-89 10:37:0070.5[facility] HermannHEMATOLOGY 2020-08-29 10:37:0018.8[facility] JfmcsqePFJDWWSBIL2392-01-20 10:37:009.5[facility] BpbtmnhFGFRBVHHWU5017-06-43 10:37:000.9[facility] EvyymhrJWZARGIQVL6980-41-22 10:37:000.3[facility] VfvrbhhZWGLHZNLJR0528-41-14 10:37:004.8[facility] AQYZQXQUHR4717-52-61 10:37:001.3[facility] ZcaznemVZXGOSNLCR2605-51-32 10:37:000.6 [facility] NlevapzCNRSHCIBGD1643-53-41 10:37:000.1[facility]annHEMATOLOGY 2020-08-29 10:37:001+ *ABN*(08/29/20 5:37 AM)[facility] ZphoyzuOEHMYUWJMG3662-01-57 10:37:00Not Detected (08/29/20 5:37 AM)[facility] RESULTS 2020-08-29 10:37:00Negative (08/29/20 5:37 AM)[facility]annCHEM FTRDF5673-01-20 10:37:52624Xmrgemne HermannCHEM MGDNX5470-09-34 10:37:0028[facility]annCHEM AHFNP6444-41-11 10:37:001.01[facility]annCHEM JFEIP1856-90-32 10:37:34632 [facility]annCHE[facility] PMPJF1105-22-20 10:37:003.8[facility]annCHEM PANEL 2020-08-29 10:37:99547Viouwspx HermannCHEM TSSYG5019-54-19 10:37:0028[facility]annCHEM RQBPG9272-80-73 10:37:009.8[facility]annCHEM VHWWB5116-66-20 10:37:0011.8[facility]annCHEM TDBNF0556-88-96 10:37:0059[facility]annCHEM UMMJP9311-73-21 10:37:002.9[facility] BpfmkjqDDAFLVLXCX1461-09-12 10:37:006.8 [facility] WoznysjDIPRMKHCSS8960-38-43 10:37:004.47[facility]annHEMATOLOGY 2020-08-29 10:37:0010.6[facility] EwgukyoPBBDUJDFTF0265-65-44 10:37:0034.0[facility] LmtpxygLNBVLWYVRT9355-23-18 10:37:0076.1[facility] FcoskemZDGXXXMVWC0665-50-81 10:37:00 Test Item Value Reference Range Interpretation Comments MCH (test code = MCH) 23.8 pg 27.0-31.0 [facility] YvnsznoQBROCCKKOF3860-60-19 10:37:0031.3[facility]annHEMATOLOGY 2020-08-29 10:37:0018.2[facility] KxlgiaeJFXSUJRZRK5289-06-52 10:37:44728Ggavenpx FdhxkjqICYLVSDNID7120-31-43 10:37:007.5[facility] SguwpfgKMXINRDCTP1956 10:37:00 Test Item Value Reference Range Interpretation Comments PT (test code = PT) 12.8 s 12.0-14.7 [facility] YhasacdKOZXYBUGZY2113-67-68 10:37:00 Test Item Value Reference Range Interpretation Comments INR (test code = INR) 0.97 1 0.85-1.17 [facility] NxzoowcZCENLVSAII8680-99-95 10:37:00 Test Item Value Reference Range Interpretation Comments PTT (test code = PTT) 25.0 s 22.9-35.8 [facility] VwvlsdoVKLQUBJKXS0949-07-76 10:37:0070.5[facility] 2020-[facility]-29 10:37:0018.8[facility] RjzenyuQNMFVILHSW1632-00-88 10:37:009.5[facility] RgkkjbxFTNXHUWKJQ4901-25-80 10:37:000.9[facility] BnmlvgiFKWPOALJKF6373-47-21 10:37:000.3[facility] FovlnmgWOESFFVHED3394-13-17 10:37:004.8[facility] PDNGCOJUFS7021-68-86 10:37:001.3[facility] NuksoflFGHLAKUSBQ4164-06-75 10:37:000.6 [facility] PgjugjoHDJDFRFJFW7273-37-05 10:37:000.1[facility]annHEMATOLOGY 2020-08-29 10:37:001+ *ABN*(08/29/20 5:37 AM)[facility] TlzoqlrRTKLFBPEMU0086-14-49 10:37:00Not Detected (08/29/20 5:37 AM)[facility]ann[facility] RESULTS 2020-08-29 10:37:00Negative (08/29/20 5:37 AM)[facility]annCHEM MIHFW7577-36-95 10:37:16588Njgiqpky HermannCHEM VNEHX7320-35-20 10:37:0028[facility]annCHE[facility] MDBMS2262-67-94 10:37:001.01[facility]annCHE[facility] HZFSQ8916-28-35 10:37:71748 [facility] XVSLY8039-34-65 10:37:003.8[facility]annCHEM PANEL 2020-08-29 10:37:08128Emqhpkuq HermannCHEM NKUQQ9537-11-90 10:37:0028[facility]annCHE[facility] CVCRN0277-94-95 10:37:009.8[facility]annCHE[facility] CMZNK7292-66-64 10:37:0011.8[facility]annCHE[facility] PKSHZ2514-97-50 10:37:0059[facility]annCHEM BRYTO4830-93-29 10:37:002.9[facility] XbtlguuHCQTJCYFUG6663-67-81 10:37:006.8 [facility] VrpnqiiMVWWPYTJKW3840-88-93 10:37:004.47[facility]annHEMATOLOGY 2020-08-29 10:37:0010.6[facility] HgrzameRHCVUAACWU9475-31-76 10:37:0034.0[facility] LmhtxlhDZCIVRCVII4293-73-25 10:37:0076.1[facility] UhknpmnIPOLTVJBXL7478-70-04 10:37:00 Test Item Value Reference Range Interpretation Comments MCH (test code = MCH) 23.8 pg 27.0-31.0 [facility] VbgqdjdLYCVPULZHD0979-65-34 10:37:0031.3[facility]annHEMATOLOGY 2020-08-29 10:37:0018.2[facility] VhyvkefOPLOFRBHEP2254-24-51 10:37:73686Upwsnuja VwnitjaGPFHDHPKEP8864-97-03 10:37:007.5[facility] AaadnnmIOJLDMFNRV9754-56-16 10:37:00 Test Item Value Reference Range Interpretation Comments PT (test code = PT) 12.8 s 12.0-14.7 [facility] CiclthrUPGYOQTBQI2308-46-56 10:37:00 Test Item Value Reference Range Interpretation Comments INR (test code = INR) 0.97 1 0.85-1.17 [facility] VgsqcapVPMNUTSKXO3888-34-91 10:37:00 Test Item Value Reference Range Interpretation Comments PTT (test code = PTT) 25.0 s 22.9-35.8 [facility] CzlfvxjZOOOXGRCGI3673-98-50 10:37:0070.5[facility]annHEMATOLOGY 2020-08-29 10:37:0018.8[facility] XskbzdfSRQJRYIPQA6355-04-89 10:37:009.5[facility] IafjdqsNXCXIDKUTK6196-16-18 10:37:000.9[facility] YevzsofCVFOIBORRP0045-28-45 10:37:000.3[facility] WcxjuxaCZXGHVBEWI5571-68-57 10:37:004.8[facility] NVYDLTEOTD6774-77-59 10:37:001.3[facility] KiryedbJSQPAMVQVO0198-60-63 10:37:000.6 [facility] HlgeqwpLTCQADLJUT1353-45-40 10:37:000.1[facility]annHEMATOLOGY 2020-08-29 10:37:001+ *ABN*(08/29/20 5:37 AM)[facility] DfbysuzPCYIJPSWFP7404-68-06 10:37:00Not Detected (08/29/20 5:37 AM)[facility]annBL[facility] BANK RESULTS 2020-08-29 10:37:00Negative (08/29/20 5:37 AM)[facility]annCHEM RAPQQ1080-41-91 10:37:51517Jcprergn HermannCHEM QHKQB0913-48-94 10:37:0028[facility]annCHEM TUBJI6462-28-93 10:37:001.01[facility]annCHEM HSVAD8418-86-86 10:37:41094 [facility]ann[facility] LQYVO5711-70-06 10:37:003.8[facility]annCHEM PANEL 2020-08-29 10:37:27766Njyuwkcw HermannCHEM GTIDQ9881-60-83 10:37:0028[facility]annCHEM ECXOU5923-36-18 10:37:009.8[facility]annCHEM TYHVA4650-23-78 10:37:0011.8[facility]annCHEM EJNPC9365-20-21 10:37:0059[facility]annCHEM PIUYD9849-55-82 10:37:002.9[facility] OgtraypPSPZEKYKIQ6760-14-05 10:37:006.8 [facility] FzuzflzQSVOUBQQWP1233-60-22 10:37:004.47[facility]annHEMATOLOGY 2020-08-29 10:37:0010.6[facility] PxxpoypGCAQEXJOSD1820-08-52 10:37:0034.0[facility] UtxavmiTGDWLUQBQP5185-68-81 10:37:0076.1[facility] CoybjptYFELXSGPSO9962-42-31 10:37:00 Test Item Value Reference Range Interpretation Comments MCH (test code = MCH) 23.8 pg 27.0-31.0 [facility] XafuofeBLMJLGXNEU5609-03-93 10:37:0031.3[facility]annHEMATOLOGY 2020-08-29 10:37:0018.2[facility] JgoylpeSPUVOIBOZE8572-28-29 10:37:93798Tgchffue PuohlltDTARDMPNPB2317-55-18 10:37:007.5[facility] BdkywsgHOKIDMLKTL7338-10-70 10:37:00 Test Item Value Reference Range Interpretation Comments PT (test code = PT) 12.8 s 12.0-14.7 [facility] YkdjnvyEWLSBRLLCN3343-20-20 10:37:00 Test Item Value Reference Range Interpretation Comments INR (test code = INR) 0.97 1 0.85-1.17 [facility] ElflqqwZPGBHYFPDP0470-21-91 10:37:00 Test Item Value Reference Range Interpretation Comments PTT (test code = PTT) 25.0 s 22.9-35.8 [facility] SfwptdoENIKCKFZVW1516-47-58 10:37:0070.5[facility]annHEMATOLOGY 2020-08-29 10:37:0018.8[facility] TyfvjugBFKIHXDUCK4678-70-54 10:37:009.5[facility] FmzxnioSPYPDNUSAR2865-35-29 10:37:000.9[facility] HmmfxchMTERBMLBHW3857-02-90 10:37:000.3[facility] DryversUASFXQTCTX0515-31-44 10:37:004.8[facility] AGKXFFMTYF6336-22-23 10:37:001.3[facility] AldetaoDBTTYHQGRS2407-39-47 10:37:000.6 [facility] XfexfsvFONGHWKANE3987-23-56 10:37:000.1[facility]annHEMATOLOGY 2020-08-29 10:37:001+ *ABN*(08/29/20 5:37 AM)[facility] FynbusuDSTZOJKKUZ7970-71-29 10:37:00Not Detected (08/29/20 5:37 AM)[facility]annBLOOD BANK RESULTS 2020-08-29 10:37:00Negative (08/29/20 5:37 AM)[facility]annCHEM ZTGDC9596-67-62 10:37:30866Wzxrohpe HermannCHEM PJVEB6641-00-35 10:37:0028[facility]annCHE[facility] BZNIN6593-68-42 10:37:001.01[facility]annCHEM OBVJM2913-16-85 10:37:85164 [facility]annCHE[facility] RMGHN3438-26-59 10:37:003.8[facility]annCHEM PANEL 2020-08-29 10:37:88173Vfsuyeqm [facility]annCHE[facility] KOPRS2305-97-29 10:37:0028[facility]annCHEM UCHMK4435-02-83 10:37:009.8[facility]annCHEM VPKDU6988-88-32 10:37:0011.8[facility]annCHEM TTDLC4930-18-10 10:37:0059[facility]annCHEM IYZQC8979-76-60 10:37:002.9[facility] PnydjhzILLLOXVGHJ0171-42-52 10:37:006.8 [facility] ZsefmjmEUALDISUZS5170-07-81 10:37:004.47[facility]annHEMATOLOGY 2020-08-29 10:37:0010.6[facility] RlvgfatZATDFKZLUO5724-10-16 10:37:0034.0[facility] DiixeokRHBSIMJNBP3974-96-40 10:37:0076.1[facility] IwclbwsXBCDWSDCFF5635-51-50 10:37:00 Test Item Value Reference Range Interpretation Comments MCH (test code = MCH) 23.8 pg 27.0-31.0 [facility] SxlsmqlBVJJHQBPVI0193-68-80 10:37:0031.3[facility]annHEMATOLOGY 2020-08-29 10:37:0018.2[facility] ZyrrbwhIYDKWWWCNU4466-89-21 10:37:41215Sagbuuys DzycvxoSDSHOUDKSV1603-34-05 10:37:007.5[facility] MkocikiHFPNXXDVGF6844-01-86 10:37:00 Test Item Value Reference Range Interpretation Comments PT (test code = PT) 12.8 s 12.0-14.7 [facility] JbfeinyNUZNFUHQWK2440-75-30 10:37:00 Test Item Value Reference Range Interpretation Comments INR (test code = INR) 0.97 1 0.85-1.17 [facility] HvvurhuPDZWPUJXBF6134-31-22 10:37:00 Test Item Value Reference Range Interpretation Comments PTT (test code = PTT) 25.0 s 22.9-35.8 [facility] JxtengoKLLRUAZKMR0328-95-74 10:37:0070.5[facility]annHEMATOLOGY 2020-08-29 10:37:0018.8[facility] CnorofvRMWOSNWWGP4798-18-06 10:37:009.5[facility] ZxdqiidALUBQTMEWZ6930-63-08 10:37:000.9[facility] CjvyjjpGWIBMNSOAZ1605-72-13 10:37:000.3[facility] DuwyluyOAIEKUFIUJ1411-85-25 10:37:004.8[facility] WAKSCRLJEX5012-37-81 10:37:001.3[facility] ByehyuwRIYTYWNNMX5455-22-18 10:37:000.6 [facility] ImyayynRVTVOUZGMF5657-67-91 10:37:000.1[facility]annHEMATOLOGY 2020-08-29 10:37:001+ *ABN*(08/29/20 5:37 AM)[facility] YqnafotEAOEVAUXFB8941-81-02 10:37:00Not Detected (08/29/20 5:37 AM)[facility]annBLOOD BANK RESULTS 2020-08-29 10:37:00Negative (08/29/20 5:37 AM)[facility]annCHEM FQAIW6773-16-98 10:37:10904Vxeozxmy [facility]annCHEM AQOKI6713-02-04 10:37:0028[facility]annCHEM XIDSM8250-29-64 10:37:001.01[facility]annCHEM MMVSN2461-95-56 10:37:02318 [facility]annCHE[facility] IXMGH4657-41-59 10:37:003.8[facility] HermannCHEM PANEL 2020-08-29 10:37:18239Tavbkuzn HermannCHEM AOCMP6284-06-78 10:37:0028[facility]annCHEM RSWCJ6445-07-98 10:37:009.8[facility]annCHEM RXSGB2866-76-00 10:37:0011.8[facility]annCHEM HDPCY7164-78-48 10:37:0059[facility]annCHEM WZBCJ1440-92-73 10:37:002.9[facility] GwuzpvfAYRIVNFLUU3844-47-16 10:37:006.8 [facility] XhqtrxdYUMJJQXJVZ1931-74-74 10:37:004.47[facility]annHEMATOLOGY 2020-08-29 10:37:0010.6[facility] UqrkyqzDFXOOOOANI1517-18-01 10:37:0034.0[facility] PdzxhvuGBHLPFKNIR3347-96-44 10:37:0076.1[facility] KrftbtcOHGBYUOBOZ3615-52-60 10:37:00 Test Item Value Reference Range Interpretation Comments MCH (test code = MCH) 23.8 pg 27.0-31.0 [facility] AplonvuHTSZKCDXLM1635-59-72 10:37:0031.3[facility]annHEMATOLOGY 2020-08-29 10:37:0018.2[facility] IxzpshkOPJJFCZRDI4778-59-49 10:37:97253Ktguspkq KmqlimyJYHURPHAXT3351-58-16 10:37:007.5[facility] SswelsbYKZXSKDWHS7529-90-12 10:37:00 Test Item Value Reference Range Interpretation Comments PT (test code = PT) 12.8 s 12.0-14.7 [facility] RheidxfZRSILMJRXU6295-93-61 10:37:00 Test Item Value Reference Range Interpretation Comments INR (test code = INR) 0.97 1 0.85-1.17 [facility] JgpljnnWIIKSYODTS6089-67-10 10:37:00 Test Item Value Reference Range Interpretation Comments PTT (test code = PTT) 25.0 s 22.9-35.8 [facility] OvubbccNQLLLDFXQP6188-19-39 10:37:0070.5[facility]annHEMATOLOGY 2020-08-29 10:37:0018.8[facility] BkyvptcBOWLCQIUPM0364-65-80 10:37:009.5[facility] OaxtehdJRDKKCVOPI6093-22-87 10:37:000.9[facility] NfnyapoUMHLIFUFWW1848-78-38 10:37:000.3[facility] TjenfjvKTKEABIMUX9751-84-16 10:37:004.8[facility] LPFORSKYAN3876-72-64 10:37:001.3[facility] SuehyikHAJQJXCXRP8278-41-21 10:37:000.6 [facility] VhtupaiHRSHSVXGGZ1454-38-18 10:37:000.1[facility]annHEMATOLOGY 2020-08-29 10:37:001+ *ABN*(08/29/20 5:37 AM)[facility] SehlasmOGWUUHCDWO5766-94-80 10:37:00Not Detected (08/29/20 5:37 AM)[facility]AMYDIA, GC, TV,PCR, IN SUUDH7163-65-26 15:38:00 Test Item Value Reference Range Interpretation Comments FT (test code = CHTR) Not detected (qualifier Not Detected N value) FT (test code = Not detected (qualifier Not Detected N NGONO) value) FT (test code = TRVG) Not detected (qualifier Not Detected N value) [facility] NFJOKVDWXLT6686-70-31 10:57:00 Test Item Value Reference Range Interpretation Comments Color (test code = UCOLR) Dk. Yellow Clarity (test code = UCLAR) Hazy Glucose (test code = UGLUC) NEGATIVE NEGATIVE N Bilirubin (test code = UBILI) NEGATIVE NEGATIVE N Ketones (test code = UKET) NEGATIVE NEGATIVE N Specific Ralph (test code = 1.025 1.005-1.030 A USPGR) [...] = None Seen None Seen N URCRYS) [facility]"
--- NOTE | 2022-04-08 18:40 | RAD REPORT ---
EXAM DESCRIPTION: RAD - Chest Single View - 04/08/2022 6:19 pm CLINICAL HISTORY: COUGH COMPARISON: Chest Single View dated 03/18/2022; Chest Single View dated 03/11/2022; Chest Single Vie w dated 02/26/2022; Chest Single View dated 02/01/2022 FINDINGS: Lines: None. Lungs: No evidence of edema or pneumonia. Pleural: No significant pleural effusions or pneumothorax. Cardiac: Cardiomegaly. Mediastinum: Within normal limits. Bones: No acute fractures. Shoulder arthroplasties. Other: None IMPRESSION: No acute cardiopulmonary disease.
[2022-04-08 19:21] LABS: Absolute Lymphocytes (CBC) 1.1 K/uL (0.7-4.9); Hematocrit 33.4 % (36.0-45.0); Lymphocytes % 22.8 % (15.3-44.8); MCV 92.3 fL (80-100); MPV 7.2 fL (7.6-11.3); RBC Red Blood Cell Count 3.62 M/uL (3.86-4.86)
[2022-04-08 19:27] LABS: Protime INR 0.95
[2022-04-08 19:39] LABS: Albumin 3.2 g/dL (3.4-5.0); Bilirubin Direct 0.1 mg/dL (0-0.2); Bilirubin Total 0.6 mg/dL (0.2-1.0); Magnesium 2.2 mg/dL (1.8-2.4); Potassium 3.4 mmol/L (3.5-5.1); Protein, Total 6.8 g/dL (6.4-8.2); Troponin High Sensitivity 16.1 pg/mL (<58.9)
[2022-04-08 20:08] LABS: Urine Blood Negative (Negative); Urine Glucose Negative (Negative); Urine Protein Negative (Negative); Urine Specific Gravity 1.025 (1.005-1.030); Urine pH 5.5 (5.0-7.0)
--- NOTE | 2022-04-08 20:16 | ER ---
Nurse's Notes [facility] Name: Marjan Kolb Age: 67 yrs Sex: Female : 1955 Arrival Date: 04/08/2022 Time: 17:11 Bed Treatment Private MD: Lele Rahman H Diagnosis: Headache;Essential (primary) hypertension;Hypokalemia Presentation: 04/08 18:31 Chief complaint: Patient states: blood pressure keeps staying high. home health nurse kr3 saw her today at home and her BP was high 199/101. Home health nurse called PCP who instructed her to come to the ER. Coronavirus screen: Vaccine status: Patient reports receiving the 2nd dose of the covid vaccine. Client denies travel out of the [place] in the last 14 days. Ebola Screen: Patient denies travel to an Ebola-affected area in the 21 days before illness onset. Initial Sepsis Screen: Does the patient meet any 2 criteria? No. Patient's initial sepsis screen is negative. Does the patient have a suspected source of infection? No. Patient's initial sepsis screen is negative. Risk Assessment: Do you want to hurt yourself or someone else? Patient reports no desire to harm self or others. Onset of symptoms was April 08, 2022. 18:31 Method Of Arrival: EMS kr3 18:31 Acuity: BLAYNE 3 kr3 Triage Assessment: 18:36 General: Appears in no apparent distress. comfortable, Behavior is calm, cooperative, kr3 appropriate for age. Pain: Complains of pain in chest. Historical: - Allergies: 18:34 Bactrim DS; kr3 18:34 butorphanol tartrate; kr3 18:34 Fentanyl; kr3 18:34 Reglan; kr3 18:34 Stadol; kr3 18:34 sulfamethoxazole (bulk); kr3 18:34 TRIMETHOPRIM; kr3 - PMHx: 18:34 Panic Attacks; Migraines; Hypertension; Hepatitis; HIV; esophageal varices; COPD; kr3 Chronic pain; Bipolar disorder; Atrial Fib; Anxiety; - PSHx: 18:34 Appendectomy; Bilateral shoulder repair; Cholecystectomy; hernia repair; R wrist SX; kr3 - Immunization history:: Adult Immunizations up to date. - Social history:: Smoking status: Patient/guardian denies using tobacco, the patient reports quitting approximately 2 years ago. Screenin:50 Abuse screen: Denies threats or abuse. Denies injuries from another. Nutritional kd3 screening: No deficits noted. Tuberculosis screening: No symptoms or risk factors identified. Fall Risk None identified. Assessment: 20:00 General: Appears in no apparent distress. uncomfortable, Behavior is calm, cooperative. tp1 Pain: Complains of pain in head Pain does not radiate. Pain currently is 10 out of 10 on a pain scale. Neuro: Level of Consciousness is awake, alert, obeys commands, Oriented to person, place, time, situation, Reports blurred vision headache. Cardiovascular: Patient's skin is warm and dry. Respiratory: Airway is patent Respiratory effort is even, unlabored. GI: No signs and/or symptoms were reported involving the gastrointestinal system. : No signs and/or symptoms were reported regarding the genitourinary system. EENT: No signs and/or symptoms were reported regarding the EENT system. Derm: Skin is pink, warm \T\ dry. Musculoskeletal: Circulation, motion, and sensation intact. Vital Signs: 18:31 BP 188 / 97; Pulse 50; Resp 17; Temp 98.6; Pulse Ox 99% on R/A; Weight 76.2 kg; Height kr3 5 ft. 4 in. (162.56 cm); Pain 9/10; 20:00 BP 196 / 120; tp1 18:31 Body Mass Index 28.84 (76.20 kg, 162.56 cm) kr3 20:00 provider notified tp1 ED Course: 17:11 Patient arrived in ED. mr 17:11 Lele Rahman DO is Private Physician. mr 18:01 Justus Kolb MD is Attending Physician. thomas 18:21 XRAY Chest (1 view) In Process Unspecified. EDMS 18:34 Triage completed. kr3 18:36 Arm band placed on left wrist. kr3 19:49 Inserted saline lock: 24 gauge in left ,using aseptic technique. breast. kd3 19:50 Patient has correct armband on for positive identification. kd3 20:01 No provider procedures requiring assistance completed. tp1 20:04 Shereen Marinelli RN is Primary Nurse. kd3 20:14 Lele Rahman DO is Referral Physician. thomas 20:15 Mike Lund MD is Referral Physician. thomas 20:48 IV discontinued. kd3 Administered Medications: 20:01 CANCELLED (Duplicate Order): HydrALAZINE 25 mg PO once thomas 20:01 CANCELLED (Duplicate Order): cloNIDine 0.2 mg PO once thomas 20:38 Drug: morphine 10 mg Route: IM; Site: right vastus lateralis; kd3 20:49 Follow up: Response: No adverse reaction kd3 20:38 Drug: Phenergan (promethazine) 25 mg Route: IM; Site: right vastus lateralis; kd3 20:49 Follow up: Response: No adverse reaction kd3 20:38 Drug: Norvasc (amlodipine) 5 mg Route: PO; kd3 20:49 Follow up: Response: No adverse reaction kd3 20:39 Drug: Potassium Effervescent Tablet 25 mEq Route: PO; kd3 20:49 Follow up: Response: No adverse reaction kd3 20:39 Drug: HydrALAZINE 50 mg Route: PO; kd3 20:49 Follow up: Response: No adverse reaction kd3 Medication: 19:50 VIS not applicable for this client. kd3 Outcome: 20:16 Discharge ordered by . thomas 20:48 Discharged to home via wheelchair. kd3 20:48 Condition: stable 20:48 Condition: stable 20:48 Discharge instructions given to patient, Instructed on discharge instructions, follow up and referral plans. medication usage, Demonstrated understanding of instructions, follow-up care, medications, Prescriptions given X 2. 20:50 Patient left the ED. kd3 Signatures: Dispatcher [employer] EDMS Justus Kolb MD MD cha Rivera, Mary Shereen Marinelli RN RN kd3 Dorita Maldonado RN RN tp1 Sharee Harrell, ASHLEY RN kr3
--- NOTE | 2022-04-08 20:16 | EDPHYS ---
Physician Documentation [facility] Name: Marjan Kolb Age: 67 yrs Sex: Female : 1955 Arrival Date: 04/08/2022 Time: 17:11 Bed Treatment Private MD: Lele Rahman H ED Physician Justus Kolb HPI: 04/08 20:04 This 67 yrs old Female presents to ER via EMS with complaints of High Blood thomas Pressure. 20:04 The patient has elevated blood pressure and discovered this at home. Onset: The thomas symptoms/episode began/occurred 1 day(s) ago. Modifying factors: The symptoms are aggravated by activity, The symptoms are alleviated by remaining still. Associated signs and symptoms: The patient has no apparent associated signs or symptoms. Severity of symptoms: At its worst the blood pressure was moderate, in the emergency department the blood pressure is unchanged. The patient has experienced similar episodes in the past, multiple times. Historical: - Allergies: 18:34 Bactrim DS; kr3 18:34 butorphanol tartrate; kr3 18:34 Fentanyl; kr3 18:34 Reglan; kr3 18:34 Stadol; kr3 18:34 sulfamethoxazole (bulk); kr3 18:34 TRIMETHOPRIM; kr3 - PMHx: 18:34 Panic Attacks; Migraines; Hypertension; Hepatitis; HIV; esophageal varices; COPD; kr3 Chronic pain; Bipolar disorder; Atrial Fib; Anxiety; - PSHx: 18:34 Appendectomy; Bilateral shoulder repair; Cholecystectomy; hernia repair; R wrist SX; kr3 - Immunization history:: Adult Immunizations up to date. - Social history:: Smoking status: Patient/guardian denies using tobacco, the patient reports quitting approximately 2 years ago. ROS: 20:09 Constitutional: Negative for fever, chills, and weight loss, Eyes: Negative for injury, thomas pain, redness, and discharge, ENT: Negative for injury, pain, and discharge, Neck: Negative for injury, pain, and swelling, Cardiovascular: Negative for chest pain, palpitations, and edema, Respiratory: Negative for shortness of breath, cough, wheezing, and pleuritic chest pain, Abdomen/GI: Negative for abdominal pain, nausea, vomiting, diarrhea, and constipation, Back: Negative for injury and pain, : Negative for injury, bleeding, discharge, and swelling, MS/Extremity: Negative for injury and deformity, Skin: Negative for injury, rash, and discoloration, Neuro: Negative for headache, weakness, numbness, tingling, and seizure, Psych: Negative for depression, anxiety, suicide ideation, homicidal ideation, and hallucinations, Allergy/Immunology: Negative for hives, rash, and allergies, Endocrine: Negative for neck swelling, polydipsia, polyuria, polyphagia, and marked weight changes, Hematologic/Lymphatic: Negative for swollen nodes, abnormal bleeding, and unusual bruising. Exam: 20:09 Constitutional: This is a well developed, well nourished patient who is awake, alert, thomas and in no acute distress. Head/Face: Normocephalic, atraumatic. Eyes: Pupils equal round and reactive to light, extra-ocular motions intact. Lids and lashes normal. Conjunctiva and sclera are non-icteric and not injected. Cornea within normal limits. Periorbital areas with no swelling, redness, or edema. ENT: Nares patent. No nasal discharge, no septal abnormalities noted. Tympanic membranes are normal and external auditory canals are clear. Oropharynx with no redness, swelling, or masses, exudates, or evidence of obstruction, uvula midline. Mucous membranes moist. Neck: Trachea midline, no thyromegaly or masses palpated, and no cervical lymphadenopathy. Supple, full range of motion without nuchal rigidity, or vertebral point tenderness. No Meningismus. Chest/axilla: Normal chest wall appearance and motion. Nontender with no deformity. No lesions are appreciated. Respiratory: Lungs have equal breath sounds bilaterally, clear to auscultation and percussion. No rales, rhonchi or wheezes noted. No increased work of breathing, no retractions or nasal flaring. Abdomen/GI: Soft, non-tender, with normal bowel sounds. No distension or tympany. No guarding or rebound. No evidence of tenderness throughout. Back: No spinal tenderness. No costovertebral tenderness. Full range of motion. Skin: Warm, dry with normal turgor. Normal color with no rashes, no lesions, and no evidence of cellulitis. MS/ Extremity: Pulses equal, no cyanosis. Neurovascular intact. Full, normal range of motion. Neuro: Awake and alert, GCS 15, oriented to person, place, time, and situation. Cranial nerves II-XII grossly intact. Motor strength 5/5 in all extremities. Sensory grossly intact. Cerebellar exam normal. Normal gait. Psych: Awake, alert, with orientation to person, place and time. Behavior, mood, and affect are within normal limits. 20:09 ECG was reviewed by the Attending Physician. Vital Signs: 18:31 BP 188 / 97; Pulse 50; Resp 17; Temp 98.6; Pulse Ox 99% on R/A; Weight 76.2 kg; Height kr3 5 ft. 4 in. (162.56 cm); Pain 9/10; 20:00 BP 196 / 120; tp1 18:31 Body Mass Index 28.84 (76.20 kg, 162.56 cm) kr3 20:00 provider notified tp1 MDM: 18:02 Patient medically screened. thomas 20:11 Differential diagnosis: hypertensive crisis, Malignant HTN, intracerebral hemorrhage. thomas Data reviewed: vital signs, nurses notes, lab test result(s), EKG, radiologic studies, plain films. Data interpreted: conveyor monitor: rate is 50 beats/min, rhythm is regular, Pulse oximetry: on room air is 99 %. Counseling: I had a detailed discussion with the patient and/or guardian regarding: the historical points, exam findings, and any diagnostic results supporting the discharge/admit diagnosis, the presence of at least one elevated blood pressure reading (>120/80) during this emergency department visit, lab results, radiology results, the need for outpatient follow up, for definitive care, a station repairer, a family practitioner. 04/08 18: Order name: Basic Metabolic Panel; Complete Time: 19:54 [facility] 04/08 18: Order name: CBC with Diff; Complete Time: 19:54 [facility] 04/08 18: Order name: LFT's; Complete Time: 19:54 [facility] 04/08 18: Order name: Magnesium; Complete Time: 19:54 [facility] 04/08 18: Order name: NT PRO-BNP; Complete Time: 19:54 [facility] 04/08 18: Order name: PT-INR; Complete Time: 19:54 [facility] 04/08 18: Order name: Troponin HS; Complete Time: 19:54 [facility] 04/08 18: Order name: XRAY Chest (1 view); Complete Time: 19:54 [facility] 04/08 20:08 Order name: Urine Dipstick-Ancillary; Complete Time: 20:12 EDMS 04/08 18:01 Order name: EKG; Complete Time: 18:02 [facility] 04/08 18:01 Order name: Cardiac monitoring; Complete Time: 20:04 [facility] 04/08 18:01 Order name: EKG - Nurse/Tech; Complete Time: 20:04 [facility] 04/08 18: Order name: IV Saline Lock; Complete Time: 19:49 [facility] 04/08 18: Order name: Labs collected and sent; Complete Time: 19:49 [facility] 04/08 18: Order name: O2 Per Protocol; Complete Time: 19:49 [facility] 04/08 18: Order name: O2 Sat Monitoring; Complete Time: 19:49 [facility] 04/08 18: Order name: Urine Dipstick-Ancillary (obtain specimen); Complete Time: 20:04 [facility] EC:09 Rate is 46 beats/min. Rhythm is regular. QRS [place] is Normal. TN interval is normal. QRS thomas interval is normal. QT interval is prolonged at 570 msec. T waves are Normal. No ST changes noted. Clinical impression: Abnormal EKG without significant change and No evidence of ischemia. Interpreted by me. Reviewed by me. Administered Medications: 20:01 CANCELLED (Duplicate Order): HydrALAZINE 25 mg PO once thomas 20:01 CANCELLED (Duplicate Order): cloNIDine 0.2 mg PO once thomas 20:38 Drug: morphine 10 mg Route: IM; Site: right vastus lateralis; kd3 20:49 Follow up: Response: No adverse reaction kd3 20:38 Drug: Phenergan (promethazine) 25 mg Route: IM; Site: right vastus lateralis; kd3 20:49 Follow up: Response: No adverse reaction kd3 20:38 Drug: Norvasc (amlodipine) 5 mg Route: PO; kd3 20:49 Follow up: Response: No adverse reaction kd3 20:39 Drug: Potassium Effervescent Tablet 25 mEq Route: PO; kd3 20:49 Follow up: Response: No adverse reaction kd3 20:39 Drug: HydrALAZINE 50 mg Route: PO; kd3 20:49 Follow up: Response: No adverse reaction kd3 Disposition Summary: 04/08/22 20:16 Discharge Ordered Location: Home thomas Problem: new thomas Symptoms: have improved thomas Condition: Stable thomas Diagnosis - Headache thomas - Essential (primary) hypertension thomas - Hypokalemia thomas Followup: thomas - With: Lele Rahman DO - When: Tomorrow - Reason: Recheck today's complaints, Continuance of care, Re-evaluation by your physician Followup: thomas - With: Mike Lund MD - When: Tomorrow - Reason: Recheck today's complaints, Continuance of care, Re-evaluation by your physician Discharge Instructions: - Discharge Summary Sheet thomas - General Headache Without Cause thomas - Hypertension, Adult thomas - Hypertension, Adult, [id number] thomas - How to Take Your Blood Pressure, [id number] thomas - General Headache Without Cause, [id number] thomas - Managing Your Hypertension thomas - Hypokalemia thomas Forms: - Medication Reconciliation Form thomas - Thank You Letter thomas - Antibiotic Education thomas - Prescription Opioid Use thomas Prescriptions: - Norvasc 10 mg Oral Tablet - take 1 tablet by ORAL route once daily; 30 tablet; Refills: 0, Product thomas Selection Permitted - Hydralazine 25 mg Oral Tablet - take 2 tablet by ORAL route 4 times per day with food; 60 tablet; Refills: 0, thomas Product Selection Permitted Signatures: Dispatcher [employer] EDMS Justus Kolb MD MD cha Doucette, Kyli RN RN kd3 Sharee Harrell RN RN kr3 Corrections: (The following items were deleted from the chart) 20:01 20:01 HydrALAZINE 25 mg PO once ordered. thomas thomas 20:01 20:01 cloNIDine 0.2 mg PO once ordered. thomas thomas
[2022-04-08] MEDS ORDERED: HYDRALAZINE HCL 25 MG TABLET ONE (20:22)
[2022-04-08] MEDS ORDERED: AMLODIPINE 5 MG TAB ONE (20:22)
[2022-04-08] MEDS ORDERED: POTASSIUM 25 MEQ EFFERV TAB ONE (20:22)
[2022-04-08] MEDS ORDERED: PROMETHAZINE INJ 25 MG/ML AMP ONE (20:23)
[2022-04-08] MEDS ORDERED: MORPHINE 2 MG/ML SYR ONE (20:24)
[2022-04-08] MEDS ORDERED: MORPHINE 4 MG/ML SYR ONE (20:24)
[2022-04-08 21:24] VITALS: TEMP 98.6; O2SAT 99
[2022-04-08 21:25] VITALS: BP 196/120
--- NOTE | 2022-04-10 19:16 | EKG ---
Test Date: 2022-04-08 Test Time: 18:45:19 Fence Gate Assembler: CATRACHITO MEASUREMENT RESULTS: Intervals: Rate: 46 [place]: QRSD: 88 QT: 570 QTc: 498 [place]: P: [place]: QRS: 1 T: 38 INTERPRETIVE STATEMENTS: Junctional rhythm Voltage criteria for left ventricular hypertrophy Nonspecific ST abnormality Prolonged QT Abnormal ECG Compared to ECG 03/11/2022 17:58:19 Junctional rhythm now present Left ventricular hypertrophy now present Prolonged QT interval now present Sinus bradycardia no longer present Atrial premature complex(es) no longer present ST (T wave) deviation still present Electronically Signed On 04-10-22 19:10:50 CLAY ARTIST by Per Crane
== END 2022-04-08 20:50 | disposition home or self-care (01) ==
LOC: ER 17:03
DX: R51.9 Headache, unspecified (principal); I10 Essential (primary) hypertension; E87.6 Hypokalemia; Z88.1 Allergy status to other antibiotic agents; Z88.8 Allergy status to other drugs, medicaments and biological substances; J44.9 Chronic obstructive pulmonary disease, unspecified; B20 Human immunodeficiency virus [HIV] disease; K75.9 Inflammatory liver disease, unspecified; F41.9 Anxiety disorder, unspecified; Z87.891 Personal history of nicotine dependence
CPT/HCPCS: 93005; 85025; 80048; 36415; 83735; 85610; 80076; 81003; 84484; 83880; 71045; 96372; 99284; J2550; J2270

== ENCOUNTER 2022-04-09 12:16 | Emergency (ER) | payer OTHER ==
--- OUTSIDE RECORDS SUMMARY | 2022-04-09 12:30 | XMS REPORT | Continuity of Care Document ---
:1955 Author Organization [facility] t Address [address] [place] [address] Care Team Providers Name Role Phone Urmila Rahman Primary Care Physician ELAN LIRA Attending Clinician Unavailable KINJAL, BEVERLY Attending Clinician Unavailable SANTIAGO CARDENAS Attending Clinician Unavailable UNKNOWN, ATTENDING Attending Clinician Unavailable Robbi Bal Attending Clinician [facility] Attending Clinician Unavailable Santiago Sanchez Attending Clinician Stevo RAMIREZ, Isaias Arredondo Attending Clinician Unavailable TOMY MARIE Attending Clinician Unavailable Reilly Means MD Attending Clinician Ofe Shields MD Attending Clinician Tomy Marie MD Attending Clinician Doctor Unassigned, Vilas Attending Clinician Unavailable Bill COLES Attending Clinician Unavailable Bill Rose Attending Clinician CHARITY MCALLISTER Attending Clinician Unavailable Charity Mcallister MD Attending Clinician GADIEL KOEHLER Attending Clinician Unavailable Mike Lund Attending Clinician Unavailable NIKOLAI REEVES Attending Clinician Unavailable Eliseo Arce MD Attending Clinician Carol Ann AIR CONDITIONING INSTALLER, Sarai Lieberman Attending Clinician [phone] Ashly Pelletier MA Attending Clinician Unavailable Dagoberto Bass MD Attending Clinician Cuba Evangelista Attending Clinician Lab, [facility] Pob I Attending Clinician Unavailable Monica Rodas MA Attending Clinician Unavailable Agustina Ortiz MA Attending Clinician Unavailable Andrez RAMIREZ, Rody Attending Clinician Unavailable Kirit Flood MD, V. Attending Clinician HEMATPOLIZ, BEVERLY Attending Clinician Unavailable Gloria Hinojosa Attending Clinician Michael Hagen RN Attending Clinician Unavailable Vani, [facility] Attending Clinician UnavailDO PORSHA Newell Attending Clinician Unavailable Gadiel Koehler MD Attending Clinician Eveline Hansen MD Attending Clinician Eladio [place] RN Attending Clinician Unavailable Leyda Willis Attending Clinician [phone] Stefanie Montalvo RN Attending Clinician Unavailable TOMY MARIE Admitting Clinician Unavailable Tomy Marie MD Admitting Clinician Bill COLES Admitting Clinician Unavailable Lele Rahman Admitting Clinician Unavailable Mike Lund Admitting Clinician Unavailable ELISEO ARCE Admitting Clinician Unavailable DO PORSHA STREETER Admitting Clinician Unavailable Payers Payer Name Policy Type Policy Number Effective Date Expiration Date S gabino [facility] COMM[facility]ITY [facility]AN [id number] 2012 STAR PLUS OON 00:00:00 [facility] [id number] 2019 DUAL COMPLETE HMO 00:00:00 [facility] [id number] 2019 PLUS 00:00:00 MEDICAID [facility] [id number] 2020 00:00:00 [facility] [id number] 2019 [facility] 00:00:00 [employer] MEDICARE ADV [id number] 2019 2019 00:00:00 00:00:00 Problems Condition Condition Condition Status Onset Resolution Last Treating Co mments Source Name Details Category Date Date Treatment Clinician Date Dyspnea, Dyspnea, Disease Active Unive rs unspecifie unspecifie 02-11 it y of d type d type 00:00: [address] Gastropare Gastropare Disease Active Overview : Methodi sis sis 4-[address] 00:00: [facility] 00 note l might be different from the original. Added automatic ally from request for surgery [id number] Dysphagia Dysphagia Disease Active Overview: Methodi 4-[address] 00:00: [facility] 00 note l might be different from the original. 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 Medica l arthroplas arthroplas Br anch ty ty Posttrauma Posttrauma Disease Active U nivers tic stress tic stress 08 it y of disorder disorder 00:00: [place] [...] [facility] hoxazole 1-25 Clear 00:00: Garcia 00 [facility] trimetho DA Active SV [facility] prim 1-25 Clear 00:00: Garcia 00 [facility] codeine DA Active SV N/V [facility] 1-25 Clear 00:00: Garcia 00 [facility] Metoclop Propensi Active [place] ramide [...] Start Date Stop Date Source Natural [facility] Social History Social Habit Start Date Stop Date Quantity Comments Source History SDOH [facility] Alcohol Frequency Hospita l History SDOH [facility] Alcohol Std Drinks Hospit al History SDOH [facility] Tobacco use and 2022-02-11 2022-02-11 Former smokeless Uni versity of exposure 00:00:00 00:00:00 tobacco user [facility] [place] [facility] [place] Tobacco Comment 2022-02-11 2022-02-11 Smokes approx 1-2 Un iversity of 00:00:00 00:00:00 cigarettes per [place] [facility] porfirio day when she Branch smokes Exposure to 2022-01-31 2022-02-10 Not sure [facility] SARS-CoV-2 (event) 00:00:00 22:53:00 [facility] Alcohol intake 2020-12-08 2020-12-08 Current drinker [facility] 00:00:00 00:00:00 of alcohol Hospital (finding) Cigarettes smoked 2020-09-05 2020-09-[address] current [facility] - [facility]orted Cigarette 2020-09-05 2020-09-05 [facility] pack-years 00:00:00 00:00:00 Hospital Alcohol Comment 2016-09-23 2016-09-23 rare [facility] 00:00:00 00:00:00 Hospital History of tobacco 2011-09-29 User of smokeless University of use 00:00:00 tobacco [facility] Sex [facility][birth year] At [birth year] [facility] 00:00:00 00:00:00 Smoking Status Start Date Stop Date Source Ex-smoker 2022-02-11 00:00:00 2022-02-11 00:00:00 [facility] Medications Ordered Filled Start Stop Current Ordering Indication Dosage Frequency Signature Comments Components Source Medication Medication Date Date Medication? Clinician (SIG) Name Name zoster 2021-05- Yes [id number] .5mL 0.[address] [facility], 0-14 10-15 9104 Intramuscu ity of recombinant 00:00: 04:59 lar route [place] (SHINGRIX, 00 :00 once now Medic al [...] 100 mg 04 (two) Medical tablet times [place] daily. amLODIPine 2021-0 Yes 10mg Take 10 mg U nivers (NORVASC) 9-27 by mouth ity of 10 mg 19:28: daily. [place] tablet 04 Medical Branch clonazePAM 2021-0 Yes 1mg Take 1 mg Un matt (KLONOPIN) 9-27 by mouth ity o f 1 mg tablet 19:28: at [place] [address] bedtime. Medical Branch traZODone 2021-0 Yes 50mg Take 50 mg Un matt 100 mg 9-27 by mouth ity of tablet 19:28: at [place] [address] bedtime. Medical Branch hydralAZINE 2021-0 Yes 25mg [...] 100 mg 04 (two) Medical tablet times [place] daily. amLODIPine 2021-0 Yes 10mg Take 10 mg U nivers (NORVASC) 9-27 by mouth ity of 10 mg 19:28: daily. [place] tablet 04 Medical Branch clonazePAM 2021-0 Yes 1mg Take 1 mg Un matt (KLONOPIN) 9-27 by mouth ity o f 1 mg tablet 19:28: at [place] [address] bedtime. Medical Branch traZODone 2021-0 Yes 50mg Take 50 mg Un matt 100 mg 9-27 by mouth ity of tablet 19:28: at [place] [address] bedtime. Medical Branch hydralAZINE 2021-0 Yes 25mg [...] o f 1 mg tablet 19:28: at [place] [address] bedtime. Medical Branch traZODone 2-0 Yes 50mg Take 50 mg Un matt 100 mg 9-27 by mouth ity of tablet 19:28: at [place] [address] bedtime. Medical Branch hydralAZINE 2021-0 Yes 25mg [...] 100 mg 04 (two) Medical tablet times [place] daily. amLODIPine 2021-0 Yes 10mg Take 10 mg U nivers (NORVASC) 9-27 by mouth ity of 10 mg 19:28: daily. [place] tablet 04 Medical Branch clonazePAM 2021-0 Yes 1mg Take 1 mg Un matt (KLONOPIN) 9-27 by mouth ity o f 1 mg tablet 19:28: at [place] [address] bedtime. Medical Branch traZODone 2-0 Yes 50mg Take 50 mg Un matt 100 mg 9-27 by mouth ity of tablet 19:28: at [place] [address] bedtime. Medical Branch hydralAZINE 2-0 Yes 25mg [...] 100 mg 04 (two) Medical tablet times [place] daily. amLODIPine Yes 10mg Take 10 mg U nivers (NORVASC) 9- by mouth ity of 10 mg 19:28: daily. [place] tablet 04 Medical Branch clonazePAM Yes 1mg Take 1 mg Un matt (KLONOPIN) 02-16 by mouth ity o f 1 mg tablet 19:28: at [place] [address] bedtime. Medical Branch traZODone Yes 50mg Take 50 mg Un matt 100 mg 02-16 by mouth ity of tablet 19:28: at [place] [address] bedtime. Medical Branch cefpodoxime 2021- Yes [id number] 200mg Take 1 Univers 200 mg 02-16 tablet by ity of tablet 00:00: 04:59 mouth in [place] 00 :00 the Medical morning Branch and 1 tablet in the evening. Do all this for 3 days. cefpodoxime 0 2021- Yes [id number] 200mg Take 1 Univers 200 mg 02-16 tablet by ity of tablet 00:00: 04:59 mouth in [place] 00 :00 the Medical morning Branch and [...] Sherrie (ESGIC) 06 Starting Medical 50-325-40 on [facility] Branch mg tablet 1 02/13/22 at tablet 1346, Until Discontinu ed, Routine, headaches dicyclomine 2021-0 Yes 10mg 10 mg, Univ ers (BENTYL) 02-13 Oral, QID, ity o f capsule 10 17:00: First dose [place] mg 00 on [facility] 02/13/22 at Branch 1200, Until Discontinu ed, Routine tiZANidine Yes 4mg 4 mg, Univer s (ZANAFLEX) 02-12 Oral, Q8H, ity of tablet 4 mg 19:00: First dose [place] 00 on Tue [facility] 02/12/22 at Branch 1400, Until Discontinu ed, Routine HYDROmorpho Yes 4mg 4 mg, Unive rs ne 02-12 Oral, ity of (DILAUDID) 17:37: Q6HPRN, [place] tablet 4 mg 07 Starting Medi porfirio on Tue [place] 02/12/22 at 1237, Until Discontinu ed, Routine, Pain (scale 4-6) morpHINE (2 2021- No 2mg 2 mg, Slow Univers mg/mL) 02-12 IV Push, ity of injection 2 17:36: 20:36 Q6HPRN, [place] mg 46 :24 Starting Medical on Tue [place] 02/12/22 at 1236, Until 02/14/22 at 1536, Routine, Pain (scale 7-10) cefTRIAXone 2021-0 202- No 2000mg 2,000 mg, Univers (ROCEPHIN) 02-12 IV ity of 2,000 mg in 17:00: 18:24 Piggyback, [place] NaCl 0.9% 00 :00 Q24H ABX, Medic [...] [place] mg 37 Starting Medical on [facility] 02/11/22 at 1618, Until Discontinu ed, Routine, SBP > 170 nystatin-tr 2021-0 Yes Topical, Un matt iamcinolone 02-11 TID, First it y of (MYCOLOG) 19:00: dose on [place] cream 00 [facility] 02/11/22 at Branch 1400, Until Discontinu ed, Routine busPIRone 2021-0 Yes 30mg 30 mg, Univer s (BUSPAR) 02-11 Oral, BID, ity o f tablet 30 18:00: First dose [place] mg 00 on [facility] 02/11/22 at Branch 1300, Until Discontinu ed, Routine raltegravir 2021-0 Yes 400mg 400 mg, Un matt (ISENTRESS) 02-11 Oral, BID, it y of tablet 400 18:00: First dose [place] mg 00 on [facility] 02/11/22 at Branch 1300, Until Discontinu ed, [...] Oral, ity of r alafen 18:00: DAILY, [place] (DESCOVY) 00 First dose Medi porfirio tablet 1 on [facility] tablet 02/11/22 at 1300, Until Discontinu ed, Routine ipratropium 2-0 Yes .5mg 0.5 mg, Uni vers (ATROVENT) 02-11 Inhalation ity of 0.02 % 17:57: , QIDPRN, [place] nebulizer 10 Starting Medica l solution on [...] IV Push, ity of (PF)) 14:05: Q6HPRN, [place] injection 4 59 Starting Medi porfirio mg on [place] Branch 02/11/22 at 0905, Until Discontinu ed, Routine, Nausea and Vomiting (N/V) acetaminoph 2021-0 Yes 650mg 650 mg, Un matt en 02-11 Oral, ity of (TYLENOL) 14:04: Q6HPRN, [place] tablet 650 37 Starting Medic al mg [...] ity of ) 25 mg 09:10: daily. [place] tablet 54 Medical Branch amLODIPine 0 Yes 10mg Take 10 mg U nivers (NORVASC) 02-11 by mouth ity of 10 mg 09:10: daily. [place] tablet 54 Medical Branch piperacilli 2021-0 202- [...] of therapy: 72 hours iopamidol 2021- No [id number] 60mL 60 mL, Univers (ISOVUE 02-11 Intravenou [...] Branch 02/11/22 at 0015, JOE emtricitabi Yes [id number] Take one Univers ne-tenofovi 9-12 po daily ity of r alafen 00:00: [place] (DESCOVY) 00 Medical tablet Branch emtricitabi Yes [id number] Take one Univers ne-tenofovi 9-12 po daily ity of r alafen 00:00: [place] (DESCOVY) 00 Medical tablet Branch emtricitabi Yes [id number] Take one Univers ne-tenofovi 9-12 po daily ity of r alafen 00:00: [place] (DESCOVY) 00 Medical tablet Branch emtricitabi 2021-0 Yes [id number] Take one Univers ne-tenofovi 9-12 po daily ity of r alafen 00:00: [place] (DESCOVY) 00 Medical tablet Branch emtricitabi 2021-0 Yes [id number] Take one Univers ne-tenofovi 9-12 po daily ity of r alafen 00:00: [place] (DESCOVY) 00 Medical tablet Branch emtricitabi 0 Yes [id number] Take one Univers ne-tenofovi 9-12 po daily ity of r alafen 00:00: [place] (DESCOVY) 00 Medical tablet Branch naproxen 2021-0 Yes [id number] 500mg Take 1 U nivers (NAPROSYN) 7-24 tablet by ity of 500 mg 00:00: mouth in [place] tablet 00 the Medical morning Branch and 1 tablet in the evening. Take with meals. methocarbam 2021-0 Yes [id number] 500mg Take 1 Univers oL 500 mg 7-24 tablet by ity o f tablet 00:00: mouth 4 [place] ([facility]) Medical times Branch daily. naproxen 2021-0 Yes [id number] 500mg Take 1 U nivers (NAPROSYN) 7-24 tablet by ity of 500 mg 00:00: mouth in [place] tablet 00 the Medical morning Branch and 1 tablet in the evening. Take with meals. methocarbam 2021-0 Yes [id number] 500mg Take 1 Univers oL 500 mg 7-24 tablet by ity o f tablet 00:00: mouth 4 [place] ([facility]) Medical times Branch daily. naproxen 2021-0 Yes [id number] 500mg Take 1 U nivers (NAPROSYN) 7-24 tablet by ity of 500 mg 00:00: mouth in [place] tablet 00 the Medical morning Branch and 1 tablet in the evening. Take with meals. methocarbam 2021-0 Yes [id number] 500mg Take 1 Univers oL 500 mg 7-24 tablet by ity o f tablet 00:00: mouth 4 [place] ([facility]) Medical times Branch [...] daily. Branch traZODONE 2021- No Take by [facility] ers (DESYREL) 11-20 mouth at ity o f 10 mg/mL 09:10: 00:00 [place]time. [place] oral 28 :00 Medical suspension Branch hydralAZINE Yes 25mg Take 25 mg Univers (APRESOLINE 11-20 by mouth ity of ) 25 mg 08:47: daily. [place] tablet 47 Medical Branch cephALEXin 2021- No [id number] 500mg Take 1 Univers (KEFLEX) 10-24 capsule [...] 7-10). Indication s: acute pain buPROPion Yes [id number] 150mg Take 1 U nivers XL 4-12 tablet by ity of (WELLBUTRIN 00:00: mouth [place] XL) 150 mg 00 daily. Medical 24 hr Branch tablet busPIRone Yes [id number] 30mg Take 1 Un matt 30 mg 4-12 tablet by ity of tablet 00:00: mouth 2 [place] 00 (two) Medical times Branch daily. SERTraline Yes [id number] 200mg Take 2 Univers 100 mg 4-12 tablets by ity of tablet 00:00: mouth [place] 00 daily. Medical Branch buPROPion 0 Yes [id number] 150mg Take 1 U nivers XL 4-12 tablet by ity of (WELLBUTRIN 00:00: mouth [place] XL) 150 mg 00 daily. Medical 24 hr Branch tablet busPIRone 0 Yes [id number] 30mg Take 1 Un matt 30 mg 4-12 tablet by ity of tablet 00:00: mouth 2 [place] 00 (two) Medical times Branch daily. SERTraline Yes [id number] 200mg Take 2 Univers 100 mg 4-12 tablets by ity of tablet 00:00: mouth [place] 00 daily. Medical Branch buPROPion Yes [id number] 150mg Take 1 U nivers XL 4-12 tablet by ity of (WELLBUTRIN 00:00: mouth [place] XL) 150 mg 00 daily. Medical 24 hr Branch tablet busPIRone 0 Yes [id number] 30mg Take 1 Un matt 30 mg 4-12 tablet by ity of tablet 00:00: mouth 2 [place] 00 (two) Medical times Branch daily. SERTraline Yes [id number] 200mg Take 2 Univers 100 mg 4-12 tablets by ity of tablet 00:00: mouth [place] 00 daily. Medical Branch buPROPion 0 Yes [id number] 150mg Take 1 U nivers XL 4-12 tablet by ity of (WELLBUTRIN 00:00: mouth [place] XL) 150 mg 00 daily. Medical 24 hr Branch tablet busPIRone 0 Yes [id number] 30mg Take 1 Un matt 30 mg 4-12 tablet by ity of tablet 00:00: mouth 2 [place] 00 (two) Medical times Branch daily. SERTraline 0 Yes [id number] 200mg Take 2 Univers 100 mg 4-12 tablets by ity of tablet 00:00: mouth [place] 00 daily. Medical Branch buPROPion 0 Yes [id number] 150mg Take 1 U nivers XL 4-12 tablet by ity of (WELLBUTRIN 00:00: mouth [place] XL) 150 mg 00 daily. Medical 24 hr Branch tablet busPIRone 2021-0 Yes [id number] 30mg Take 1 Un matt 30 mg 4-12 tablet by ity of tablet 00:00: mouth 2 [place] 00 (two) Medical times Branch daily. SERTraline 2021-0 Yes [id number] 200mg Take 2 Univers 100 mg 4-12 tablets by ity of tablet 00:00: mouth [place] 00 daily. Medical Branch buPROPion 2021-0 Yes [id number] 150mg Take 1 U nivers XL 4-12 tablet by ity of (WELLBUTRIN 00:00: mouth [place] XL) 150 mg 00 daily. Medical 24 hr Branch tablet busPIRone 2021-0 Yes [id number] 30mg Take 1 Un matt 30 mg 4-12 tablet by ity of tablet 00:00: mouth 2 [place] 00 (two) Medical times Branch daily. SERTraline 2021-0 Yes [id number] 200mg Take 2 Univers 100 mg 4-12 tablets by ity of tablet 00:00: mouth [place] 00 daily. Medical Branch buPROPion 2021-0 Yes [id number] 150mg Take 1 U nivers XL 4-12 tablet by ity of (WELLBUTRIN 00:00: mouth [place] XL) 150 mg 00 daily. Medical 24 hr Branch tablet busPIRone 2021-0 Yes [id number] 30mg Take 1 Un matt 30 mg 4-12 tablet by ity of tablet 00:00: mouth 2 [place] 00 (two) Medical times Branch daily. SERTraline 2021-0 Yes [id number] 200mg Take 2 Univers 100 mg 4-12 tablets by ity of tablet 00:00: mouth [place] 00 daily. Medical Branch raltegravir 2021-0 Yes [id number] 400mg Take 1 Univers (ISENTRESS) 3-28 tablet by ity of 400 mg 00:00: mouth 2 [place] tablet 00 (two) Medical times Branch daily. raltegravir 2021-0 Yes [id number] 400mg Take 1 Univers (ISENTRESS) 3-28 tablet by ity of 400 mg 00:00: mouth 2 [place] tablet 00 (two) Medical times Branch daily. raltegravir 2021-0 Yes [id number] 400mg Take 1 Univers (ISENTRESS) 3-28 tablet by ity of 400 mg 00:00: mouth 2 [place] tablet 00 (two) Medical times Branch daily. raltegravir 2021-0 Yes [id number] 400mg Take 1 Univers (ISENTRESS) 3-28 tablet by ity of 400 mg 00:00: mouth 2 [place] tablet 00 (two) Medical times Branch daily. raltegravir 2021-0 Yes [id number] 400mg Take 1 Univers (ISENTRESS) 3-28 tablet by ity of 400 mg 00:00: mouth 2 [place] tablet 00 (two) Medical times Branch daily. raltegravir 2021-0 Yes [id number] 400mg Take 1 Univers (ISENTRESS) 3-28 tablet by ity of 400 mg 00:00: mouth 2 [place] tablet 00 (two) Medical times Branch daily. raltegravir 2021-0 Yes [id number] 400mg Take 1 Univers (ISENTRESS) 3-28 tablet by ity of 400 mg 00:00: mouth 2 [place] tablet 00 (two) Medical times Branch daily. LORazepam 1 2021- No [id number] 1mg Take 1 Univers mg tablet 3-10 [...] a tablet day. emtricitabi 0 2021- No [id number] Take one Univers ne-tenofovi 1-20 09-12 po daily ity of r alafen 00:00: 00:00 [place] (DESCOVY) 00 :00 Medical tablet Branch metoprolol 2020-0 Yes [id number] Take 1 [place] tartrate 7-26 tablet Health (Lopressor) 00:00: (100 mg 100 MG 00 total) by tablet mouth 2 (two) times a day AND 0.5 tablets (50 mg total) every night. metoprolol 2021-0 Yes [id number] Take 1 [place] tartrate 7-26 tablet Health [...] area in groin) hydrALAZINE 0 Yes 50mg Q.[id number] Take 50 mg Methodi (APRESOLINE 7-19 [id number] mouth [address] ) 50 MG [...] area in groin) hydrALAZINE 0 Yes 50mg Q.[id number] Take 50 mg [facility] (APRESOLINE 7-19 [id number] [address] mouth [address] [facility] ) 50 MG [...] (affected area in groin) hydrALAZINE Yes 50mg Q.[id number] Take 50 mg [facility] (APRESOLINE 7-19 [id number] [address] mouth [facility] st ) 50 MG [...] area in groin) hydrALAZINE 0 Yes 50mg Q.[id number] Take 50 mg [facility] (APRESOLINE 7-19 [id number] [address] mouth 3 [address] ) 50 MG [...] area in groin) hydrALAZINE 0 Yes 50mg Q.[id number] Take 50 mg [facility]i (APRESOLINE 7-19 [id number] [address] mouth [address] ) 50 MG [...] (affected area in groin) hydrALAZINE Yes 50mg Q.[id number] Take 50 mg [facility] (APRESOLINE 7-19 [id number] [address] mouth 3 st ) 50 MG [...] (affected area in groin) hydrALAZINE Yes 50mg Q.[id number] Take 50 mg [facility] (APRESOLINE 7-19 [id number] [address] mouth [address] ) 50 MG [...] area in groin) hydrALAZINE 0 Yes 50mg Q.[id number] Take 50 mg [facility]i (APRESOLINE 7-19 [id number] [address] mouth 3 [address] ) 50 MG [...] (affected area in groin) hydrALAZINE Yes 50mg Q.[id number] Take 50 mg [facility]i (APRESOLINE 7-19 [id number] [address] mouth 3 [address] ) 50 MG [...] (affected area in groin) hydrALAZINE Yes 50mg Q.[id number] Take 50 mg [facility] (APRESOLINE 7-19 [id number] mouth [address] ) 50 MG [...] area in groin) hydrALAZINE 0 Yes 50mg Q.[id number] Take 50 mg [facility] (APRESOLINE 7-19 [id number] [address] mouth 3 [address] ) 50 MG [...] area in groin) hydrALAZINE 0 Yes 50mg Q.[id number] Take 50 mg [facility]i (APRESOLINE 7-19 [id number] mouth 3 [address] ) 50 MG [...] (affected area in groin) hydrALAZINE Yes 50mg Q.[id number] Take 50 mg [facility]i (APRESOLINE 7-19 [id number] [address] mouth 3 [address] ) 50 MG [...] area in groin) hydrALAZINE 2020-0 Yes 50mg Q.[id number] Take 50 mg [facility] (APRESOLINE 7-19 [id number] [address] mouth [address] ) 50 MG [...] area in groin) hydrALAZINE 0 Yes 50mg Q.[id number] Take 50 mg [facility] (APRESOLINE 7-19 [id number] mouth [address] ) 50 MG [...] Hospita tablet 25 daily. l nystatin-tr Yes [id number] Apply to [facility] 11-25 area(s) 3 ity of cream 00:00: (three) [place] 00 times Medical daily. Branch nystatin-tr 2020-0 Yes [id number] [facility] area(s[facility] 3 ity of cream 00:00: (three) [place] 00 times Medical daily. Branch nystatin-tr 2020-0 Yes [id number] [facility] area(s) 3 ity of cream 00:00: (three) [place] 00 times Medical daily. Branch nystatin-tr 2020-0 Yes [id number] Apply to [facility] iainolone 7-06 area(s) 3 ity of cream 00:00: (three) [place] 00 times Medical daily. Branch nystatin-tr 2020-0 Yes [id number] Apply to [facility] iainolone 7-06 area(s) 3 ity of cream 00:00: (three) [place] 00 times Medical daily. Branch nystatin-tr 2020-0 Yes [id number] Apply to [facility] iamcinolone 7-06 area(s) 3 ity of cream 00:00: (three) [place] 00 times Medical daily. Branch nystatin-tr 2020-0 Yes [id number] Apply to [facility] iainolone 7-06 area(s) 3 ity of cream 00:00: (three) [place] 00 times Medical daily. Branch budesonide- 2020-0 2020- No 1{puff} QD Inhale 1 Methodi formoteroL 625 06-[address] (SYMBICORT) 14:37: 00:00 morning. H ospita 160-4.5 02 :00 l mcg/actuati on inhaler hydrALAZINE 0 Yes [id number] 50mg Q.[id number] Take 1 [place] (Apresoline 6-11 [id number] tablet (50 Health ) 50 MG 00:00: 3D mg total) tablet 00 by mouth 3 (three) times a day. hydrALAZINE Yes [id number] 50mg Q.[id number] Take 1 [place] (Apresoline 6-11 [id number] tablet (50 Health ) 50 MG 00:00: [...] % 00:00: ointment 00 nystatin 2020- No [id number] Q.25D Take 5 mL Methodi (MYCOSTATIN 10-06 [...] ia 4-10 (Same as: l 14:00: Norvasc) [place] emtricitabi No Notes: Caesar lisa ne 200 MG / 4-10 (Same as: l tenofovir 14:00: [place]covy) Herm ariel alafenamide 00 Non-formul 25 MG Oral nancy Tablet [Descovy] pantoprazol No Notes: [place] lisa e 4-10 Tablet l 14:00: should not [place] 00 be chewed or crushed. (Same as: Protonix) Amiodarone No Notes: Memor ia 4-10 (Same as: l 14:00: Cordarone) [place] 00 Amlodipine No Notes: Memor ia 4-10 (Same as: l 14:00: Norvasc) [place] emtricitabi No Notes: [place] lisa ne 200 MG / 4-10 (Same as: l tenofovir 14:00: [place]) Herm ariel alafenamide 00 Non-formul 25 MG Oral nancy Tablet [Descovy] Sertraline No Notes: Memor ia 4-10 (Same as: l 14:00: Zoloft) [place] Sertraline No Notes: Memor ia 4-10 (Same as: l 14:00: Zoloft) [place] 00 pantoprazol No Notes: [place] lisa e 4-10 Tablet l 14:00: should not [place] 00 be chewed or crushed. (Same as: [...] ia 4-10 (Same as: l 14:00: Zoloft) [place] 00 pantoprazol No Notes: [place] lisa e 4-10 Tablet l 14:00: should not [place] 00 be chewed or crushed. (Same as: Protonix) Amiodarone No Notes: Memor ia 4-10 (Same as: l 14:00: Cordarone) [place] Amlodipine No Notes: Memor ia 4-10 (Same as: l 14:00: Norvasc) [place] emtricitabi No Notes: [place] lisa ne 200 MG / 4-10 (Same as: l tenofovir 14:00: [place]covy) Herm ariel alafenamide 00 Non-formul 25 MG Oral nancy Tablet [Descovy] Sertraline No Notes: Memor ia 4-10 (Same as: l 14:00: Zoloft) [place] pantoprazol No Notes: [place] lisa e 4-10 Tablet l 14:00: should not [place] 00 be chewed or crushed. (Same as: Protonix) Amiodarone No Notes: Memor ia 4-10 (Same as: l 14:00: Cordarone) [place] Amlodipine No Notes: Memor ia 4-10 (Same as: l 14:00: Norvasc) Rhodes emtricitabi No Notes: Caesar lisa ne 200 MG / 4-10 (Same as: l tenofovir 14:00: Descovy) Herm ariel alafenamide 00 Non-formul 25 MG Oral nancy Tablet [Descovy] Sertraline No Notes: Memor ia 4-10 (Same as: l 14:00: Zoloft) Marty pantoprazol No Notes: Caesar lias e 4-10 Tablet l 14:00: should not Marty 00 be chewed or crushed. (Same as: Protonix) Amiodarone No Notes: Memor ia 4-10 (Same as: l 14:00: Cordarone) Rhodes Amlodipine No Notes: Memor ia 4-10 (Same as: l 14:00: Norvasc) Rhodes 00 emtricitabi No Notes: Caesar lisa ne [...] M emoria 4-10 interfere l 02:00: w/enteral Rhodes 00 feeds - Take 1 hr before [...] 0.9% 4-10 (Same as: l 02:00: BD Rhodes Posiflush) Eliquis 2021-0 No Notes: Memoria 4-10 Same as: l 02:00: Eliquis Rhodes Hydralazine No Notes: Caesar lisa Hydrochlori 4-10 [...] M emoria 4-10 interfere l 02:00: w/enteral Rhodes 00 feeds - Take 1 hr before or 2 hr after antacids, dairy pdt, meals & minerals - On empty stomach. For patients unable to swallow tablet, dissolve in 10mL - 30mL of water or juice and stir before giving. (Same As: Carafate) Saline No Notes: Memoria Flush 0.9% 4-10 (Same as: l 02:00: BD Rhodes 00 Posiflush) Eliquis No Notes: Memoria 4-10 Same as: l 02:00: Eliquis Marty Hydralazine No Notes: Caesar lisa Hydrochlori 4-10 (Same as: l de 50 MG 02:00: Apresoline Her mitchell Oral Tablet 00 ) May interfere w/enteral feedings Take With Food Sucralfate No Notes: May M emoria 4-10 interfere l 02:00: w/enteral Rhodes 00 feeds - Take 1 hr before [...] Memoria 4-10 Same as: l 02:00: Eliquis Rhodes Hydralazine No Notes: Caesar lisa Hydrochlori 4-10 [...] 0.9% 4-10 (Same as: l 02:00: BD Rhodes Posiflush) Eliquis No Notes: Memoria 4-10 Same [...] 0.9% 4-10 (Same as: l 02:00: BD Rhodes 00 Posiflush) Eliquis No Notes: Memoria 4-10 Same as: l 02:00: Eliquis Hydralazine No Notes: Caesar lisa Hydrochlori 4-10 (Same as: l de 50 MG 02:00: Apresoline Her mitchell Oral Tablet 00 ) May interfere w/enteral feedings Take With Food acetaminoph No Notes: Do M emoria en-codeine 4-10 not exceed l #3 00:12: 4gm/day of Rhodes acetaminop hen. (Same as: Tylenol with Codeine # 3) acetaminoph No Notes: Do M emoria en-codeine 4-10 not exceed l #3 00:12: 4gm/day of Rhodes acetaminop hen. (Same as: Tylenol with Codeine # 3) acetaminoph No Notes: Do M emoria en-codeine 4-10 not exceed l #3 00:12: 4gm/day of Marty acetaminop hen. (Same as: Tylenol with Codeine # 3) acetaminoph No Notes: Do M emoria en-codeine 4-10 not exceed l #3 00:12: 4gm/day of Rhodes acetaminop hen. (Same as: Tylenol with Codeine [...] not exceed l #3 00:12: 4gm/day of Rhodes acetaminop hen. (Same as: Tylenol with Codeine # 3) Buspirone No Notes: Memori a 4-09 (Same As: l 22:00: BuSpar) Lisinopril 2020-0 No 40 mg, 1 Mem oria - tab, l 22:00: Route: PO, Rhodes Drug form: TAB, BID, Dosing Weight 97.273, [...] l Tablet 22:00: Route: PO, Skylar [facility] Drug form: TAB, BID, Dosing Weight [...] 08-29 (Same As: l 22:00: BuSpar) Raltegravir 2021-0 No 400 mg, 1 M [...] oria 4-09 tab, l 22:00: Route: PO, Rhodes 00 Drug form: TAB, BID, Dosing Weight 97.273, kg, Start date: 08/29/20 17:00:00 CDT, Duration: 30 day, Stop date: 09/28/20 9:00:00 CDT metoprolol 2021-0 No 100 mg, 1 Me moria tartrate 4-09 tab, l 22:00: Route: PO, Rhodes Drug form: TAB, BID, Dosing Weight 97.273, [...] oria 4-09 tab, l 22:00: Route: PO, Rhodes Drug form: TAB, BID, Dosing Weight 97.273, kg, Start date: 08/29/20 17:00:00 CDT, Duration: 30 day, Stop date: 09/28/20 9:00:00 CDT metoprolol 1-0 No 100 mg, 1 Me moria tartrate 4-09 tab, l 22:00: Route: PO, Rhodes 00 Drug form: TAB, BID, Dosing Weight [...] Notes: Memoria 4-09 (Same l 17:07: as:MORPhin Rhodes 00 e Sulfate) Morphine No Notes: Memoria 4-09 (Same l 17:07: as:MORPhin Marty 00 e Sulfate) Morphine No Notes: Memoria 4-09 (Same l 17:07: as:MORPhin Rhodes 00 e Sulfate) Morphine No Notes: Memoria [...] ONCE, Stop date: 08/29/20 10:40:00 CDT neostigmine 1-0 No Route: IV, Memoria (ANES) 08-29 Drug [...] tab, PO, l oral 15:27: Daily, # Rhodes enteric 00 30 tab, 0 coated Refill(s), tablet Pharmacy: [facility] 149, 162.56, cm, 08/29/20 5:30:00 CDT, Height, 97.273, kg, 08/29/20 5:30:00 CDT, Weight pantoprazol 2020-0 Yes 40 mg = 1 M emoria e 40 mg 4-09 tab, PO, l oral 15:27: Daily, # Marty enteric 00 30 tab, 0 coated Refill(s), tablet Pharmacy: [facility] 149, 162.56, cm, 08/29/20 5:30:00 CDT, Height, 97.273, kg, 08/29/20 5:30:00 CDT, Weight pantoprazol 2021-0 Yes 40 mg = 1 M emoria e 40 mg 4-09 tab, PO, l oral 15:27: Daily, # Rhodes enteric 00 30 tab, 0 coated Refill(s), tablet [facility] 149, 162.56, cm, 08/29/20 5:30:00 CDT, Height, 97.273, kg, 08/29/20 5:30:00 CDT, Weight pantoprazol 1-0 Yes 40 mg = 1 M emoria e 40 mg 4-09 tab, PO, l oral 15:27: Daily, # Rhodes enteric 00 30 tab, 0 coated Refill(s), tablet [facility], 162.56, cm, 08/29/20 5:30:00 CDT, Height, 97.273, kg, 08/29/20 5:30:00 CDT, Weight pantoprazol 2021-0 Yes 40 mg = 1 M emoria e 40 mg 4-09 tab, PO, l oral 15:27: Daily, # Marty enteric 00 30 tab, 0 coated Refill(s), tablet [facility], 162.56, cm, 08/29/20 5:30:00 CDT, Height, 97.273, kg, 08/29/20 5:30:00 CDT, Weight pantoprazol 2021-0 Yes 40 mg = 1 M emoria e 40 mg 4-09 tab, PO, l oral 15:27: Daily, # Marty enteric 00 30 tab, 0 coated Refill(s), tablet [facility], 162.56, cm, 08/29/20 5:30:00 CDT, Height, 97.273, kg, 08/29/20 5:30:00 CDT, Weight pantoprazol 2021-0 Yes 40 mg = 1 M emoria e 40 mg 4-09 tab, PO, l oral 15:27: Daily, # Rhodes enteric 00 30 tab, 0 coated Refill(s), tablet Pharmacy: [facility] 149, 162.56, cm, 08/29/20 5:30:00 CDT, Height, 97.273, kg, 08/29/20 5:30:00 CDT, Weight pantoprazol 2020-0 No 40 mg = 1 M emoria e 40 mg 4-09 tab, PO, l oral 15:26: Daily, # Rhodes enteric 00 30 tab, 0 coated Refill(s) tablet sucralfate 2020-0 Yes 1 gm = 1 Mem oria 1 g oral 4-09 tab, PO, l tablet 15:26: Q12H, # 28 Skylar nn 00 tab, 0 Refill(s), Pharmacy: [facility] 149, 162.56, cm, 08/29/20 5:30:00 [...] Skylar nn 00 tab, 0 Refill(s), Pharmacy: [facility] 149, 162.56, cm, 08/29/20 5:30:00 [...] Skylar nn 00 tab, 0 Refill(s), Pharmacy: [facility] 149, 162.56, cm, 08/29/20 5:30:00 [...] Skylar nn 00 tab, 0 Refill(s), Pharmacy: [facility] 149, 162.56, cm, 08/29/20 5:30:00 CDT, Height, 97.273, kg, 08/29/20 5:30:00 CDT, Weight pantoprazol 2020-0 No 40 mg = 1 M emoria e 40 mg 4-09 tab, PO, l oral 15:26: Daily, # Rhodes enteric 00 30 tab, 0 coated Refill(s) tablet sucralfate 0 Yes 1 gm = 1 Mem oria 1 g oral 4-09 tab, PO, l tablet 15:26: Q12H, # 28 Skylar nn 00 tab, 0 Refill(s), Pharmacy: [facility] 149, 162.56, cm, 08/29/20 5:30:00 CDT, Height, 97.273, kg, 08/29/20 5:30:00 CDT, Weight pantoprazol 2020-0 No 40 mg = 1 M emoria e 40 mg 4-09 tab, PO, l oral 15:26: Daily, # Rhodes enteric 00 30 tab, 0 coated Refill(s) tablet sucralfate 2020-0 Yes 1 gm = 1 Mem oria 1 g oral 4-09 tab, PO, l tablet 15:26: Q12H, # 28 Skylar nn 00 tab, 0 Refill(s), Pharmacy: [facility] 149, 162.56, cm, 08/29/20 5:30:00 CDT, Height, 97.273, kg, 08/29/20 5:30:00 CDT, Weight pantoprazol 2020-0 No 40 mg = 1 M emoria e 40 mg 4-09 tab, PO, l oral 15:26: Daily, # Rhodes enteric 00 30 tab, 0 coated Refill(s) tablet sucralfate Yes 1 gm = 1 Mem oria 1 g oral 4-09 tab, PO, l tablet 15:26: Q12H, # 28 Skylar nn 00 tab, 0 Refill(s), Pharmacy: [facility] 149, 162.56, cm, 08/29/20 5:30:00 [...] 0.9% 4-09 (Same as: l 15:25: BD Rhodes 00 Posiflush) Lorazepam No Notes: Memori a 4-09 (Same as: l 15:25: Ativan) Lorazepam No Notes: Memori a 4-09 (Same as: l 15:25: Ativan) Marty 00 Saline No Notes: Memoria Flush 0.9% 4-09 (Same as: l 15:25: BD Marty 00 Posiflush) Lorazepam No Notes: Memori a 4-09 (Same as: l 15:25: Ativan) Rhodes 00 Saline No Notes: Memoria Flush 0.9% 4-09 (Same as: l 15:25: BD Rhodes 00 Posiflush) Lorazepam No Notes: Memori a 4-09 (Same as: l 15:25: Ativan) Marty 00 Saline No Notes: Memoria Flush 0.9% 08-29 [...] ONCE, Stop date: 08/29/20 9:49:00 CDT propofol 0 No Route: IV, Mem [...] 08-29 Drug form: l 14:18: INJ, ONCE, Rhodes 00 Stop date: 08/29/20 9:18:00 CDT heparin [...] lisa 08-29 Route: l 14:01: IVP, PRN, Rhodes 00 Dosing Weight 97.273, kg, PRN Benzodiaze pine Reversal, Initial dose, Start date: 08/29/20 9:01:00 CDT, Duration: 30 day, Stop date: 09/28/20 9:00:00 CDT Naloxone 2020-0 No 0.4 mg, Memori a 08-29 Route: l 14:01: IVP, Rhodes 00 Q2MIN, Dosing Weight 97.273, kg, PRN Narcotic Reversal, Start date: 08/29/20 9:01:00 CDT, Duration: 8 doses or times, Stop date: Limited # of times Ondansetron 2021-0 No 4 mg, Memor ia 08-29 Route: l 14:01: IVP, ONCE, Rhodes 00 Dosing Weight 97.273, kg, PRN Nausea [...] 08-29 Route: PO, l 14:01: Drug form: Rhodes 00 TAB, ONCE, Dosing Weight 97.273, kg, [...] oria ne 08-29 Route: l 14:01: IVP, Rhodes 00 Q5Min, Dosing Weight 97.273, kg, PRN [...] lisa 08-29 Route: l 14:01: IVP, PRN, Rhodes 00 Dosing Weight 97.273, kg, PRN Benzodiaze [...] Memori a 08-29 Route: l 14:01: IVP, Rhodes 00 Q2MIN, Dosing Weight 97.273, kg, PRN [...] lisa 08-29 Route: l 14:01: IVP, PRN, Rhodes 00 Dosing Weight 97.273, kg, PRN Benzodiaze [...] oria ne 08-29 Route: l 14:01: IVP, Rhodes 00 Q5Min, Dosing Weight 97.273, kg, PRN Pain Score 7-10, Start date: 08/29/20 9:01:00 CDT, Duration: 4 doses or times, Stop date: Limited # of times Flumazenil 1-0 No 0.2 mg, Caesar lisa 08-29 Route: l 14:01: IVP, PRN, Rhodes Dosing Weight 97.273, kg, PRN Benzodiaze pine [...] Memori a 08-29 Route: l 14:01: IVP, Rhodes 00 Q5Min, Dosing Weight 97.273, kg, PRN Elevated BP, Start date: 08/29/20 9:01:00 CDT, Duration: 5 doses or times, Stop date: Limited # of times Acetaminoph 1-0 No 1,000 mg, M emoria en 08-29 Route: PO, l 14:01: Drug form: Rhodes 00 TAB, ONCE, Dosing Weight 97.273, kg, [...] 08-29 Route: PO, l 14:01: Drug form: Rhodes 00 TAB, ONCE, Dosing Weight 97.273, kg, [...] lisa 08-29 Route: l 14:01: IVP, PRN, Rhodes 00 Dosing Weight 97.273, kg, PRN Benzodiaze [...] ia 08-29 Route: l 14:01: IVP, ONCE, Rhodes 00 Dosing Weight 97.273, kg, PRN Nausea [...] 1-3, Start date: 08/29/20 9:01:00 CDT lidocaine 2020-0 [...] ONCE, Stop date: 08/29/20 8:52:00 CDT dexamethaso 2021-0 No Route: IV, Memoria ne (ANES) 08-29 [...] Drug form: l 10 13:15: INJ, Start Rhodes microgram 00 date: 08/29/20 8:15:00 CDT, Stop date: 08/29/20 9:15:00 CDT norepinephr 2020-0 No Route: IV, Memoria ine (ANES) 08-29 Drug form: l 10 13:15: INJ, Start Marty microgram 00 date: 08/29/20 8:15:00 CDT, Stop date: 08/29/20 9:15:00 CDT norepinephr 2020-0 No Route: IV, Memoria ine (ANES) 08-29 Drug form: l 10 13:15: INJ, Start Rhodes microgram 00 date: 08/29/20 8:15:00 CDT, Stop date: 08/29/20 9:15:00 CDT norepinephr 2020-0 No Route: IV, Memoria ine (ANES) 08-29 Drug form: l 10 13:15: INJ, Start Marty microgram 00 date: 08/29/20 8:15:00 CDT, Stop date: 08/29/20 9:15:00 CDT norepinephr 2020-0 No Route: IV, Memoria ine (ANES) 08-29 Drug form: l 10 13:15: INJ, Start Rhodes microgram 00 date: 08/29/20 8:15:00 CDT, Stop date: 08/29/20 9:15:00 CDT Sodium 2020-0 No Route: IV, Memor ia Chloride 4-09 Total l 0.9% IV 12:30: Volume: Marty (ANES) 1000 00 1,000, mL Start date: 08/29/20 7:30:00 CDT, Stop date: 08/29/20 8:30:00 CDT Sodium 2020-0 No Route: IV, Memor ia Chloride 4-09 Total l 0.9% IV 12:30: Volume: Rhodes (ANES) 1000 00 1,000, mL Start date: 08/29/20 7:30:00 CDT, Stop date: 08/29/20 8:30:00 CDT Sodium 2021-0 No Route: IV, Memor ia Chloride 4-09 Total l 0.9% IV 12:30: Volume: Rhodes (ANES) 1000 00 1,000, mL Start date: 08/29/20 7:30:00 CDT, Stop date: 08/29/20 8:30:00 CDT Sodium 2021-0 No Route: IV, Memor ia Chloride 4-09 Total l 0.9% IV 12:30: Volume: Rhodes (ANES) 1000 00 1,000, mL Start date: 08/29/20 7:30:00 CDT, Stop date: 08/29/20 8:30:00 CDT Sodium 1-0 No Route: IV, Memor ia Chloride 4-09 Total l 0.9% IV 12:30: Volume: Marty (ANES) 1000 00 1,000, mL Start date: 08/29/20 7:30:00 CDT, Stop date: 08/29/20 8:30:00 CDT Sodium 2021-0 No Route: IV, Memor ia Chloride 4-09 Total l 0.9% IV 12:30: Volume: Rhodes (ANES) 1000 00 1,000, mL Start date: [...] PO, l Hydrochlori 11:42: Q24H, # 30 Rhodes de 150 MG 00 tab, 0 Extended [...] PO, l Hydrochlori 11:42: Q24H, # 30 Rhodes de 150 MG 00 tab, 0 Extended Refill(s) Release Tablet apixaban 5 2020-0 Yes 5 mg, PO, Me moria MG Oral 08-29 Q12H, tab, l Tablet 11:41: 0 Marty [Eliquis] 00 Refill(s), For Atrial Fibrilatio n apixaban 5 2020-0 Yes 5 mg, PO, Me moria MG Oral 08-29 Q12H, tab, l Tablet 11:41: 0 Rhodes [Eliquis] 00 Refill(s), For Atrial Fibrilatio n apixaban 5 2020-0 Yes 5 mg, PO, Me moria MG Oral 08-29 Q12H, tab, l Tablet 11:41: 0 Marty [Eliquis] 00 Refill(s), For Atrial Fibrilatio n apixaban 5 2020-0 Yes 5 mg, PO, Me moria MG Oral - Q12H, tab, l Tablet 11:41: 0 Rhodes [Eliquis] 00 Refill(s), For Atrial Fibrilatio n [...] tab, PO, l tablet 11:38: Daily, # Rhodes 00 90 tab, 3 Refill(s) AMIODarone 2020-0 Yes 200 mg = 1 M emoria 200 mg oral 4-09 tab, PO, l tablet 11:38: Daily, # Rhodes 00 90 tab, 3 Refill(s) AMIODarone 2020-0 Yes 200 mg = 1 M emoria 200 mg oral 4-09 tab, PO, l tablet 11:38: Daily, # Rhodes 00 90 tab, 3 Refill(s) AMIODarone 2020-0 Yes 200 mg = 1 M emoria 200 mg oral 4-09 tab, PO, l tablet 11:38: Daily, # Rhodes 00 90 tab, 3 Refill(s) normal No [...] st 00:00: Hospita 00 l Eliquis 5 1-0 Yes Methodi mg tablet 08-16 st 00:00: [...] 00:00: (Dyazide) 00 37.5-25 MG capsule triamterene 0 Yes 1{each} 1 each. UT -hydroCHLOR 1-27 [...] tablet 00:00: mouth Hospita 00 daily. l ISCENTERVILLESS 2016-0 Yes 400mg Q.5D Take 400 Met [...] 00 (two) l times a day. ISENTRESS 2016-0 Yes 400mg Q.5D Take 400 Met hodi 400 mg 3-[address] tablet 00:00: mouth 2 Hospita 00 (two) l times a day. ISCENTERVILLESS Yes 400mg Q.5D Take 400 Met hodi 400 mg 3-[address] tablet 00:00: mouth 2 Hospita 00 (two) l times a day. ISCENTERVILLESS Yes 400mg Q.5D Take 400 Met hodi 400 mg 3-[address] tablet 00:00: mouth 2 Hospita 00 (two) l times a day. ISCENTERVILLESS Yes 400mg Q.5D Take 400 Met hodi 400 mg 3-[address] tablet 00:00: mouth [facility] ([facility] 400[facility] Q.5D Take 400 Met hodi 400 mg 3-[address] tablet 00:00: mouth 2 [facility]ospita 00 (two) l times a day. Immunizations Ordered Filled Immunization Date Status Comments [facility] Immunization Name Name SARS-COV-2 COVID-19 2022-03-05 [...] [place] 65[place] PFIZER COVID-19 2020-07-23 Completed [facility] MRNA VACCINATION 00:00:00 [facility] PFIZER COVID-19 2020-07-23 Completed [facility] MRNA VACCINATION 00:00:00 [facility] PFIZER COVID-19 2020-07-23 Completed [facility] MRNA VACCINATION 00:00:00 [facility] PFIZER COVID-19 2020-07-23 Completed [facility] MRNA VACCINATION 00:00:00 [facility] PFIZER COVID-19 2020-07-23 Completed [facility] MRNA VACCINATION 00:00:00 [facility] PFIZER COVID-19 2020-07-23 Completed [facility] MRNA VACCINATION 00:00:00 [facility] PFIZER COVID-19 2020-07-23 Completed [facility] MRNA VACCINATION 00:00:00 [facility] PFIZER COVID-19 2020-07-23 Completed [facility] MRNA VACCINATION 00:00:00 [facility] PFIZER COVID-19 2020-07-23 Completed [facility] MRNA VACCINATION 00:00:00 [facility] PFIZER COVID-19 2020-07-23 Completed [facility] MRNA VACCINATION 00:00:00 [facility] PFIZER COVID-19 2020-07-23 Completed [facility] MRNA VACCINATION 00:00:00 [facility] PFIZER COVID-19 2020-07-23 Completed [facility] MRNA VACCINATION 00:00:00 [facility] PFIZER COVID-19 2020-07-23 Completed [facility] MRNA VACCINATION 00:00:00 [facility] PFIZER COVID-19 2020-07-23 Completed [facility] MRNA VACCINATION 00:00:00 [facility] SARS-COV-2 COVID-19 2020-07-23 Completed Unive rsity of PFIZER VACCINE 00:00:00 [facility] SARS-COV-2 COVID-19 2020-07-23 Completed Unive rsity of PFIZER VACCINE 00:00:00 [facility] SARS-COV-2 COVID-19 2020-07-23 Completed Unive rsity of PFIZER VACCINE 00:00:00 [facility] PFIZER COVID-19 2020-07-23 Completed [facility] MRNA VACCINATION 00:00:00 [facility] PFIZER COVID-19 2020-07-02 Completed [facility] MRNA VACCINATION 00:00:00 [facility] PFIZER COVID-19 2020-07-02 Completed [facility] MRNA VACCINATION 00:00:00 [facility] PFIZER COVID-19 2020-07-02 Completed [facility] MRNA VACCINATION 00:00:00 [facility] PFIZER COVID-19 2020-07-02 Completed [facility] MRNA VACCINATION 00:00:00 [facility] PFIZER COVID-19 2020-07-02 Completed [facility] MRNA VACCINATION 00:00:00 [facility] PFIZER COVID-19 2020-07-02 Completed [facility] VACCINATION 00:00:00 [facility] PFIZER COVID-19 2020-07-02 Completed [facility] MRNA VACCINATION 00:00:00 [facility] PFIZER COVID-19 2020-07-02 Completed [facility] MRNA VACCINATION 00:00:00 [facility] PFIZER COVID-19 2020-07-02 Completed [facility] MRNA VACCINATION 00:00:00 [facility] PFIZER COVID-19 2020-07-02 Completed [facility] M[facility] VACCINATION 00:00:00 [facility] PFIZER COVID-19 2020-07-02 Completed [facility] MRNA VACCINATION 00:00:00 [facility] PFIZER COVID-19 2020-07-02 Completed [facility] MRNA VACCINATION 00:00:00 [facility] PFIZER COVID-19 2020-07-02 Completed [facility] MRNA VACCINATION 00:00:00 Hospital PFIZER COVID-19 2020-07-02 Completed [facility] MRNA VACCINATION 00:00:00 [facility] SARS-COV-2 COVID-19 2020-07-02 Completed Unive rsity of PFIZER VACCINE 00:00:00 [facility] SARS-COV-2 COVID-19 2020-07-02 Completed Unive rsity of PFIZER VACCINE 00:00:00 [facility] SARS-COV-2 COVID-19 2020-07-02 Completed Unive rsity of PFIZER VACCINE 00:00:00 [facility] PFIZER COVID-19 2020-07-02 Completed [facility] MRNA VACCINATION 00:00:00 [facility] Influenza Virus 2017-03-08 Completed [facility] Vaccine 00:00:00 [facility] Influenza Virus 2017-03-08 Completed [facility]it [facility] of Vaccine 00:00:00 [facility] Influenza Virus 2017-03-08 Completed [facility] of Vaccine 00:00:00 [facility] Influenza Virus 2017-03-08 Completed [facility]it [facility] of Vaccine 00:00:00 [facility] Influenza Virus 2017-03-08 Completed [facility]it y of Vaccine 00:00:00 [facility] Influenza Virus 2017-03-08 Completed [facility]it y of Vaccine 00:00:00 [facility] Influenza Virus 2017-03-08 Completed [facility]it y of Vaccine 00:00:00 [facility] Influenza Virus 2014-01-30 Completed Universit y of Vaccine (3+ yrs) 00:00:00 [facility] Pneumococcal 13 2014-01-30 Completed Universit y of Conjugate, PCV13 00:00:00 [facility] dical (Prevnar 13) Branch Influenza Virus 2014-01-30 Completed Universit y of Vaccine (3+ yrs) 00:00:00 [facility] Pneumococcal 13 2014-01-30 Completed Universit y of Conjugate, PCV13 00:00:00 [facility] dical (Prevnar 13) Branch Influenza Virus 2014-01-30 Completed Universit y of Vaccine (3+ yrs) 00:00:00 [place] [facility] Pneumococcal 13 2014-01-30 Completed Universit y of Conjugate, PCV13 00:00:00 [facility] dical (Prevnar 13) Branch Influenza Virus 2014-01-30 Completed Universit y of Vaccine (3+ yrs) 00:00:00 [facility] dical Branch Pneumococcal 13 2014-01-30 Completed Universit y of Conjugate, PCV13 00:00:00 [facility] dical (Prevnar 13) Branch Influenza Virus 2014-01-30 Completed Universit y of Vaccine (3+ yrs) 00:00:00 [facility] dical Branch Pneumococcal 13 2014-01-30 Completed Universit y of Conjugate, PCV13 00:00:00 [facility] dical (Prevnar 13) Branch Influenza Virus 2014-01-30 Completed Universit y of Vaccine (3+ yrs) 00:00:00 [facility] dical Branch Pneumococcal 13 2014-01-30 Completed Universit y of Conjugate, PCV13 00:00:00 [facility] dical (Prevnar 13) Branch Influenza Virus 2014-01-30 Completed Universit y of Vaccine (3+ yrs) 00:00:00 [facility] dical Branch Pneumococcal 13 2014-01-30 Completed Universit y of Conjugate, PCV13 00:00:00 [facility] dical (Prevnar 13) Branch Pneumococcal 2012-02-16 Completed University o f Polysaccharide, 00:00:00 [facility] ical PPSV23 (PNEUMOVAX) Branch Influenza Virus 2012-02-16 Completed Universit y of Vaccine 00:00:00 [facility] PPD (TB) 2012-02-16 Completed University of 00:00:00 [facility] Pneumococcal 2012-02-16 Completed University o f Polysaccharide, 00:00:00 [facility] PPSV23 (PNEUMOVAX) Branch Influenza Virus 2012-02-16 Completed Universit y of Vaccine 00:00:00 [facility] PPD (TB) 2012-02-16 Completed University of 00:00:00 [facility] Pneumococcal 2012-02-16 Completed University o f Polysaccharide, 00:00:00 [facility] PPSV23 (PNEUMOVAX) Branch Influenza Virus 2012-02-16 Completed Universit y of Vaccine 00:00:00 [facility] PPD (TB) 2012-02-16 Completed University of 00:00:00 [facility] Pneumococcal 2012-02-16 Completed University o f Polysaccharide, 00:00:00 [facility] PPSV23 (PNEUMOVAX) Branch Influenza Virus 2012-02-16 Completed Universit y of Vaccine 00:00:00 [facility] PPD (TB) 2012-02-16 Completed University of 00:00:00 [facility] Pneumococcal 2012-02-16 Completed University o f Polysaccharide, 00:00:00 [facility] PPSV23 (PNEUMOVAX) Branch Influenza Virus 2012-02-16 Completed Universit y of Vaccine 00:00:00 [facility] PPD (TB) 2012-02-16 Completed University of 00:00:00 [facility] Pneumococcal 2012-02-16 Completed University o f Polysaccharide, 00:00:00 [facility] PPSV23 (PNEUMOVAX) Branch Influenza Virus 2012-02-16 Completed Universit y of Vaccine 00:00:00 [facility] PPD (TB) 2012-02-16 Completed University of 00:00:00 [facility] Pneumococcal 2012-02-16 Completed University o f Polysaccharide, 00:00:00 [facility] PPSV23 (PNEUMOVAX) Branch Influenza Virus 2012-02-16 Completed Universit y of Vaccine 00:00:00 [facility] PPD (TB) 2012-02-16 Completed University of 00:00:00 [facility] Hep B, Adol or Pedi 2011-09-01 Completed [facility]ive rs[facility] of Dosage 00:00:00 [facility] Hep B, Adol or Pedi 2011-09-01 Completed [facility] of Dosage 00:00:00 [facility] Hep B, Adol or Pedi 2011-09-01 Completed [facility] of Dosage 00:00:00 [facility] Hep B, Adol or Pedi 2011-09-01 Completed [facility] of Dosage 00:00:00 [facility] Hep B, Adol or Pedi 2011-09-01 Completed [facility] Dosage 00:00:00 [facility] Hep B, Adol or Pedi 2011-09-01 Completed [facility] of Dosage 00:00:00 [facility] Hep B, Adol or Pedi 2011-09-01 Completed [facility] of Dosage 00:00:00 [facility] Hep B, Adol or Pedi 2011-03-17 Completed [facility] of Dosage 00:00:00 [facility] Hep B, Adol or Pedi 2011-03-17 Completed [facility] of Dosage 00:00:00 [facility] Hep B, Adol or Pedi 2011-03-17 Completed [facility] Dosage 00:00:00 [facility] Hep B, Adol or Pedi 2011-03-17 Completed [facility] Dosage 00:00:00 [facility] Hep B, Adol or Pedi 2011-03-17 Completed [facility] Dosage 00:00:00 [facility] Hep B, Adol or Pedi 2011-03-17 Completed [facility] Dosage 00:00:00 [facility] Hep B, Adol or Pedi 2011-03-17 Completed [facility] [facility] Influenza Virus 2011-02-10 Completed [facility] Vaccine 00:00:00 [facility] Hep B, Adol or Pedi 2011-02-10 Completed Unive rsity of Dosage 00:00:00 [facility] Influenza Virus 2011-02-10 Completed [facility] Vaccine 00:00:00 [facility] Hep B, Adol or Pedi 2011-02-10 Completed Unive rsity of Dosage 00:00:00 [facility] Influenza Virus 2011-02-10 Completed [facility] Vaccine 00:00:00 [facility] Hep B, Adol or Pedi 2011-02-10 Completed Unive rsity of Dosage 00:00:00 [facility] Influenza Virus 2011-02-10 Completed [facility] Vaccine 00:00:00 [facility] Hep B, Adol or Pedi 2011-02-10 Completed Unive rsity of Dosage 00:00:00 [facility] Influenza Virus 2011-02-10 Completed [facility] Vaccine 00:00:00 [facility] Hep B, Adol or Pedi 2011-02-10 Completed Unive rsity of Dosage 00:00:00 [facility] Influenza Virus 2011-02-10 Completed [facility] Vaccine 00:00:00 [facility] Hep B, Adol or Pedi 2011-02-10 Completed [facility]ive rsity of Dosage 00:00:00 [facility] Influenza Virus 2011-02-10 Completed [facility] Vaccine 00:00:00 [facility] Hep B, Adol or Pedi 2011-02-10 Completed [facility]ive rsity of Dosage 00:00:00 [facility] PPD (TB) 2010-11-18 Completed [facility] of 00:00:00 [facility] TDAP (ADACEL) 2010-11-18 Completed [facility] of VACCINE 00:00:00 [facility] PPD (TB) 2010-11-18 Completed [facility] of 00:00:00 [facility] TDAP (ADACEL) 2010-11-18 Completed [facility] of VACCINE 00:00:00 [facility] PPD (TB) 2010-11-18 Completed [facility] of 00:00:00 [facility] TDAP (ADACEL) 2010-11-18 Completed [facility] of VACCINE 00:00:00 [facility] PPD (TB) 2010-11-18 Completed [facility] of 00:00:00 [facility] TDAP (ADACEL) 2010-11-18 Completed [facility] of VACCINE 00:00:00 [facility] PPD (TB) 2010-11-18 Completed [facility] of 00:00:00 [facility] TDAP (ADACEL) 2010-11-18 Completed [facility] of VACCINE 00:00:00 [facility] PPD (TB) 2010-11-18 Completed [facility] of 00:00:00 [facility] TDAP (ADACEL) 2010-11-18 Completed [facility] of VACCINE 00:00:00 [facility] PPD (TB) 2010-11-18 Completed [facility] of 00:00:00 [facility] TDAP (ADACEL) 2010-11-18 Completed [facility] of VACCINE 00:00:00 [facility] HEPATITIS A 2004-03-02 Completed [facility] of 00:00:00 [facility] HEPATITIS A 2004-03-02 Completed [facility] of 00:00:00 [facility] HEPATITIS A 2004-03-02 Completed [facility] of 00:00:00 [facility] HEPATITIS A 2004-03-02 Completed [facility] of 00:00:00 [facility] HEPATITIS A 2004-03-02 Completed [facility] of 00:00:00 [facility] HEPATITIS A 2004-03-02 Completed [facility] of 00:00:00 [facility] HEPATITIS A 2004-03-02 Completed [facility] of 00:00:00 [facility] HEPATITIS A 2003-08-01 Completed [facility] of 00:00:00 [facility] HEPATITIS A 2003-08-01 Completed [facility] of 00:00:00 [facility] HEPATITIS A 2003-08-01 Completed [facility] of 00:00:00 [facility] HEPATITIS A 2003-08-01 Completed [facility] of 00:00:00 [facility] HEPATITIS A 2003-08-01 Completed [facility] of 00:00:00 [facility] HEPATITIS A 2003-08-01 Completed [facility] of 00:00:00 [facility] HEPATITIS A 2003-08-01 Completed [facility] of 00:00:00 [facility] Pneumococcal 2001-10-04 Completed [facility] o f Polysaccharide, 00:00:00 [facility] PPSV23 (PNEUMOVAX) [facility] PPD (TB) 2001-10-04 Completed [facility] of 00:00:00 [facility] Pneumococcal 2001-10-04 Completed [facility] o f Polysaccharide, 00:00:00 [facility] PPSV23 (PNEUMOVAX) Branch PPD (TB) 2001-10-04 Completed [facility] of 00:00:00 [facility] Pneumococcal 2001-10-04 Completed [facility] o f Polysaccharide, 00:00:00 [facility] PPSV23 (PNEUMOVAX) Branch PPD (TB) 2001-10-04 Completed [facility] of 00:00:00 [facility] Pneumococcal 2001-10-04 Completed [facility] o f Polysaccharide, 00:00:00 [facility] PPSV23 (PNEUMOVAX) Branch PPD (TB) 2001-10-04 Completed [facility] of 00:00:00 [facility] Pneumococcal 2001-10-04 Completed [facility] o f Polysaccharide, 00:00:00 [facility] PPSV23 (PNEUMOVAX) Branch PPD (TB) 2001-10-04 Completed [facility] of 00:00:00 [facility] Pneumococcal 2001-10-04 Completed [facility] o f Polysaccharide, 00:00:00 [facility] PPSV23 (PNEUMOVAX) Branch PPD (TB) 2001-10-04 Completed [facility] of 00:00:00 [facility] Pneumococcal 2001-10-04 Completed [facility] o f Polysaccharide, 00:00:00 [facility] PPSV23 (PNEUMOVAX) Branch PPD (TB) 2001-10-04 Completed [facility] 00:00:00 [facility] Vital Signs Vital Name Observation Time Observation Value Comments Source Systolic blood 2022-02-16 21:41:00 169 mm[Hg] Univer sity of pressure [facility] Diastolic blood 2022-02-16 21:41:00 86 mm[Hg] Unive rsity of pressure [facility] Heart rate 2022-02-16 21:41:00 51 /min [facility] Body temperature 2022-02-16 21:41:00 36.56 Amina [facility] Respiratory rate 2022-02-16 21:41:00 17 /min [facility] Oxygen saturation in 2022-02-16 21:41:00 98 /min [facility] Arterial blood by [facility] Pulse oximetry [place] Body height 2022-02-11 16:02:00 162.6 cm [facility] Body weight 2022-02-11 16:02:00 79.379 kg [facility] BMI 2022-02-11 16:02:00 30.04 kg/m2 [facility] Systolic blood 2021-11-20 13:47:00 165 mm[Hg] Univer sity of pressure [facility] Diastolic blood 2021-11-20 13:47:00 83 mm[Hg] [facility] Heart rate 2021-11-20 13:47:00 58 /min [facility] Body temperature 2021-11-20 13:42:00 36.39 Amina [facility] ersity of [facility] Respiratory rate 2021-11-20 13:42:00 16 /min [facility] ersity of [facility] Body height 2021-11-20 13:42:00 162.6 cm [facility] [place] Body weight 2021-11-20 13:42:00 84.369 kg [facility] [place] BMI 2021-11-20 13:42:00 31.93 kg/m2 [facility] Systolic blood 2021-07-14 15:18:00 142 mm[Hg] [facility] Diastolic blood 2021-07-14 15:18:00 76 mm[Hg] [facility] Heart rate 2021-07-14 15:18:00 61 [facility] 2021-07-14 15:18:00 [facility] 2021-07-14 15:18:00 [facility]802 [facility] BMI 2021-07-14 15:18:00 35.87 kg/m2 [facility] Systolic blood 2020-12-08 15:48:00 125 mm[Hg] [facility] pressure Diastolic blood 2020-12-08 15:48:00 76 mm[Hg] [facility] pressure Heart rate 2020-12-08 15:48:00 64 /min [facility] Body temperature 2020-12-08 15:48:00 36.61 Amina [facility] Respiratory rate 2020-12-08 15:48:00 17 /min [facility] Body height 2020-12-08 15:48:00 162.6 cm [facility] Body weight 2020-12-08 15:48:00 98.884 kg [facility] BMI 2020-12-08 15:48:00 37.42 kg/m2 [facility] Oxygen saturation in 2020-12-08 15:48:00 97 /min [facility] Arterial blood by Pulse oximetry Respitory Rate 2020-08-30 13:00:00 Memori al Rhodes Systolic (mm Hg) 2020-08-30 13:00:00 Caesar rial Rhodes Diastolic (mm Hg) 2020-08-30 13:00:00 Mem orial Rhodes Systolic (mm Hg) 2020-08-30 11:00:00 Caesar rial Marty Diastolic (mm Hg) 2020-08-30 11:00:00 Mem orial Marty Temperature Oral (F) 2020-08-30 11:00:00 98.4 F [facility] Respitory Rate 2020-08-30 11:00:00 Mem[facility] al [facility] Respitory Rate 2020-08-30 10:00:00 Memori al Rhodes Systolic (mm Hg) 2020-08-30 10:00:00 Caesar rial Marty Diastolic (mm Hg) 2020-08-30 10:00:00 Mem orial Marty Temperature Oral (F) 2020-08-30 00:00:00 96.9 F [facility] Temperature Oral (F) 2020-08-29 11:26:00 97.6 F [facility] Height 2020-08-29 10:30:00 162.56 cm [facility] Weight 2020-08-29 10:30:00 [facility] BMI Calculated 2020-08-29 10:30:00 Darien Hammond Procedures Procedure Date / Time Performing Clinician Source Performed MAGNESIUM 2022-02-15 09:41:00 Sofia Garcia [facility] BASIC METABOLIC PANEL (NA, 2022-02-15 09:41:00 Sofia Garcia [facility] K, CL, CO2, GLUCOSE, BUN, Medica [facility] CREATININE, CA) CBC WITH DIFF 2022-02-15 09:41:00 Sofia Garcia [facility] N-TERMINAL PRO-BNP 2022-02-15 09:41:00 Sofia Garica [facility] BASIC METABOLIC PANEL (NA, 2022-02-13 09:40[facility] CO2, GLUCOSE, BUN, Medica l [place] CREATININE, [place]) CBC WITH DIFF 2022-02-13 09:40:00 Radha Sofia [facility] TROPONIN I 2022-02-11 23:41:00 Radha [facility] N-TERMINAL PRO-BNP 2022-02-11 23:41:00 Sofia Garcia [facility] TRANSTHORACIC ECHO (TTE) 2022-02-11 21:26:50 Sofia Garcia [facility] ABDOMEN PELVIS W 2022-02-11 07:45:43 Reilly Means [facility] RAPID INFLUENZA A/B 2022-02-11 06:54:00 Reilly Means [facility] URINALYSIS 2022-02-11 06:45:00 Reilly Means [facility] URINE CULTURE 2022-02-11 06:45:00 Reilly Means [facility] HB ECG ROUTINE & RHYTHM 2022-02-11 05:22:08 Reilly Means [facility] BLOOD CULTURE SCREEN 2022-02-11 04:58:00 Reilly Means [facility] TROPONIN I 2022-02-11 04:58:00 Reilly Measn [facility] COMP. METABOLIC PANEL 2022-02-11 04:58:00 Reilly Means [facility] ([id number]) Medical Branch CBC WITH DIFF 2022-02-11 04:58:00 Reilly Means [facility] PROTHROMBIN TIME / INR 2022-02-11 04:58:[address] [facility] ACTIVATED PARTIAL THRMPLAS 2022-02-11 04:58:00 Reilly Means [facility] N-TERMINAL PRO-BNP 2022-02-11 04:58:[address] [facility] LACTIC ACID WHOLE BLOOD 2022-02-11 04:58:00 Reilly Means [facility] COVID-19 (ID NOW RAPID 2022-02-11 04:58:00 Reilly Means [facility] TESTING) Medical Branch LAB ONLY COVID 2022-02-11 04:58:00 Reilly Means [facility] INTERPRETATION [facility] XR CHEST 1 VW 2022-02-11 04:27:42 Miguelangel Reilly [facility] HOSPITAL ADMISSION 2022-02-10 05:01:00 Doctor Unassigned, [facility] ECG 12-LEAD 2021-07-14 15:14:00 Elan Lira [facility] [id number] 2021-06-17 00:00:00 RASSA [facility] GASTROINTESTINAL PANEL 2020-12-08 22:21:00 Eliseo Arce [facility] XR ABDOMEN 1 VW 2020-12-08 18:06:32 Eliseo Arce spital OR [place] < 1 HOUR 2020-09-05 22:39:00 Eliseo Arce spital SURGICAL PATHOLOGY REQUEST 2020-09-05 21:54:[address] [facility] XR CHEST 1 VW PORTABLE 2020-09-05 19:55:00 Eliseo Arce [facility] DISCHARGE PATIENT 2020-09-05 17:27:55 [facility] AN ELECTIVE 2020-09-05 16:47:23 Kirit Flood [facility] ENDOTRACHEAL AIRWAY EGD, INTRAOPERATIVE 2020-09-05 16:27:00 [facility] THROMBOPLASTIN 2020-09-05 15:04[facility]00 [facility] TIME (PTT) M. PROTHROMBIN TIME WITH INR 2020-09-05 15:04:00 Mindy Maharaj [facility] M. Plan of Care Planned Activity Planned Date Details Comments Source Future Scheduled 2022-03-25 SHINGLES VACCINES (1 [facility] Test 14:48:42 of 2) [code = SHINGLES VACCINES (1 of 2)] Future Scheduled 2022-03-25 BREAST CANCER [facility] Test 14:48:42 SCREENING [code = BREAST CANCER SCREENING] Future Scheduled 2022-03-25 COLONOSCOPY SCREENING [facility] Test 14:48:42 [code = COLONOSCOPY SCREENING] Future Scheduled 2022-03-25 HEPATITIS B VACCINES [facility] Test 14:48:42 (1 of 3 - Risk 3-dose series) [code = HEPATITIS B VACCINES (1 of 3 - Risk 3-dose series)] Future Scheduled 2022-03-25 COVID-19 VACCINE (3 - [facility] Test 14:48:42 Booster for Pfizer series) [code = COVID-19 VACCINE (3 - Booster for Pfizer series)] Future Scheduled 2022-03-25 65+ PNEUMOCOCCAL [facility] Test 14:48:42 VACCINE (4 - PPSV23 if available, else PCV20) [code = 65+ PNEUMOCOCCAL VACCINE (4 - PPSV23 if available, else PCV20)] Future Scheduled 2022-03-25 INFLUENZA VACCINE [facility] Test 14:48:42 [code = INFLUENZA VACCINE] Future Scheduled 2022-03-25 SHINGLES VACCINES (1 [facility] Test 14:48:42 of 2) [code = SHINGLES VACCINES (1 of 2)] Future Scheduled 2022-03-25 BREAST CANCER [facility] Test 14:48:42 SCREENING [code = BREAST CANCER SCREENING] Future Scheduled 2022-03-25 COLONOSCOPY SCREENING [facility] Test 14:48:42 [code = COLONOSCOPY SCREENING] Future Scheduled 2022-03-25 HEPATITIS B VACCINES [facility] Test 14:48:42 (1 of 3 - Risk 3-dose series) [code = HEPATITIS B VACCINES (1 of 3 - Risk 3-dose series)] Future Scheduled 2022-03-25 COVID-19 VACCINE (3 - [facility] Test 14:48:42 Booster for Pfizer series) [code = COVID-19 VACCINE (3 - Booster for Pfizer series)] Future Scheduled 2022-03-25 65+ [facility]42 VACCINE (4 - PPSV23 if available, else PCV20) [code = 65+ PNEUMOCOCCAL VACCINE (4 - PPSV23 if available, else PCV20)] Future Scheduled 2022-03-[address] [facility] Test 14:48:42 [code = INFLUENZA VACCINE] Future Scheduled 2022-03-04 COLONOSCOPY SCREENING [facility] Test 14:03:57 [code = COLONOSCOPY SCREENING] Future Scheduled 2022-03-04 HEPATITIS B VACCINES [facility] Test 14:03:57 (1 of 3 - Risk 3-dose series) [code = HEPATITIS B VACCINES (1 of 3 - Risk 3-dose series)] Future Scheduled 2022-03-04 COVID-19 VACCINE (3 - [facility] Test 14:03:57 Booster for Pfizer series) [code = COVID-19 VACCINE (3 - Booster for Pfizer series)] Future Scheduled 2022-03-04 65+ [facility] 14:03:57 VACCINE (4 - PPSV23 if available, else PCV20) [code = 65+ PNEUMOCOCCAL VACCINE (4 - PPSV23 if available, else PCV20)] Future Scheduled 2022-03-04 INFLUENZA VACCINE [facility] Test 14:03:57 [code = INFLUENZA VACCINE] Future Scheduled 2022-03-04 SHINGLES VACCINES (1 [facility] Test 14:03:57 of 2) [code = SHINGLES VACCINES (1 of 2)] Future Scheduled 2022-03-04 BREAST CANCER [facility] Test 14:03:57 SCREENING [code = BREAST CANCER SCREENING] Future Scheduled 2022-03-04 COLONOSCOPY SCREENING [facility] Test 14:03:57 [code = COLONOSCOPY SCREENING] Future Scheduled 2022-03-04 [facility] 14:03:57 (1 of 3 - Risk 3-dose series) [code = HEPATITIS B VACCINES (1 of 3 - Risk 3-dose series)] Future Scheduled 2022-03-04 COVID-19 VACCINE (3 - [facility] Test 14:03:57 Booster for Pfizer series) [code = COVID-19 VACCINE (3 - Booster for Pfizer series)] Future Scheduled 2022-03-04 65+ PNEUMOCOCCAL [facility] Test 14:03:57 VACCINE (4 - PPSV23 if available, else PCV20) [code = 65+ PNEUMOCOCCAL VACCINE (4 - PPSV23 if available, else PCV20)] Future Scheduled 2022-03-04 INFLUENZA VACCINE [facility] Test 14:03:57 [code = INFLUENZA VACCINE] Future Scheduled 2022-03-04 SHINGLES VACCINES (1 [facility] Test 14:03:57 of 2) [code = SHINGLES VACCINES (1 of 2)] Future Scheduled 2022-03-04 BREAST CANCER [facility] Test 14:03:57 SCREENING [code = BREAST CANCER SCREENING] Future Scheduled 2022-03-04 COLONOSCOPY SCREENING [facility] Test 14:03:57 [code = COLONOSCOPY SCREENING] Future Scheduled 2022-03-04 HEPATITIS B VACCINES [facility] Test 14:03:57 (1 of 3 - Risk 3-dose series) [code = HEPATITIS B VACCINES (1 of 3 - Risk 3-dose series)] Future Scheduled 2022-03-04 COVID-19 VACCINE (3 - [facility] Test 14:03:57 Booster for Pfizer series) [code = COVID-19 VACCINE (3 - Booster for Pfizer series)] Future Scheduled 2022-03-04 65+ [facility]:03:57 VACCINE (4 - PPSV23 if available, else PCV20) [code = 65+ PNEUMOCOCCAL VACCINE (4 - PPSV23 if available, else PCV20)] Future Scheduled 2022-03-04 INFLUENZA VACCINE [facility] Test 14:03:57 [code = INFLUENZA VACCINE] Future Scheduled 2022-03-04 SHINGLES VACCINES (1 [facility] Test 14:03:57 of 2) [code = SHINGLES VACCINES (1 of 2)] Future Scheduled 2022-03-04 BREAST CANCER [facility] Test 14:03:57 SCREENING [code = BREAST CANCER SCREENING] Future Scheduled 2022-03-04 COLONOSCOPY SCREENING [facility] Test 14:03:57 [code = COLONOSCOPY SCREENING] Future Scheduled 2022-03-04 HEPATITIS B VACCINES [facility] Test 14:03:57 (1 of 3 - Risk 3-dose series) [code = HEPATITIS B VACCINES (1 of 3 - Risk 3-dose series)] Future Scheduled 2022-03-04 COVID-19 VACCINE (3 - [facility] Test 14:03:57 Booster for Pfizer series) [code = COVID-19 VACCINE (3 - Booster for Pfizer series)] Future Scheduled 2022-03-04 65+ [facility]AL [facility] 14:03:57 VACCINE (4 - PPSV23 if available, else PCV20) [code = 65+ PNEUMOCOCCAL VACCINE (4 - PPSV23 if available, else PCV20)] Future Scheduled 2022-03-04 INFLUENZA VACCINE [facility] Test 14:03:57 [code = INFLUENZA VACCINE] Future Scheduled 2022-03-04 SHINGLES VACCINES (1 [facility] Test 14:03:57 of 2) [code = SHINGLES VACCINES (1 of 2)] Future Scheduled 2022-03-04 BREAST CANCER [facility] Test 14:03:57 SCREENING [code = BREAST CANCER SCREENING] Future Scheduled 2022-02-11 SHINGLES VACCINES (1 [facility] Test 13:39:12 of 2) [code = SHINGLES VACCINES (1 of 2)] Future Scheduled 2022-02-11 BREAST CANCER [facility] Test 13:39:12 SCREENING [code = BREAST CANCER SCREENING] Future Scheduled 2022-02-11 COLONOSCOPY SCREENING [facility] Test 13:39:12 [code = COLONOSCOPY SCREENING] Future Scheduled 2022-02-11 HEPATITIS B VACCINES [facility] Test 13:39:12 (1 of 3 - Risk 3-dose series) [code = HEPATITIS B VACCINES (1 of 3 - Risk 3-dose series)] Future Scheduled 2022-02-11 COVID-19 VACCINE (3 - [facility] Test 13:39:12 Booster for Pfizer series) [code = COVID-19 VACCINE (3 - Booster for Pfizer series)] Future Scheduled 2022-02-11 65+ [facility]CCAL [facility] 13:39:12 VACCINE (4 - PPSV23 or PCV20) [code = 65+ PNEUMOCOCCAL VACCINE (4 - PPSV23 or PCV20)] Future Scheduled 2022-02-[address] [facility] Test 13:39:12 [code = INFLUENZA VACCINE] Future Scheduled 2022-01-29 SHINGLES VACCINES (1 [facility] Test 14:07:20 of 2) [code = SHINGLES VACCINES (1 of 2)] Future Scheduled 2022-01-29 BREAST CANCER [facility] Test 14:07:20 SCREENING [code = BREAST CANCER SCREENING] Future Scheduled 2022-01-29 COLONOSCOPY SCREENING [facility] Test 14:07:20 [code = COLONOSCOPY SCREENING] Future Scheduled 2022-01-29 HEPATITIS B VACCINES [facility] Test 14:07:20 (1 of 3 - Risk 3-dose series) [code = HEPATITIS B VACCINES (1 of 3 - Risk 3-dose series)] Future Scheduled 2022-01-29 COVID-19 VACCINE (3 - [facility] Test 14:07:20 Booster for Pfizer series) [code = COVID-19 VACCINE (3 - Booster for Pfizer series)] Future Scheduled 2022-01-29 65+ [facility]AL [facility] 14:07:20 VACCINE (4 - PPSV23 or PCV20) [code = 65+ PNEUMOCOCCAL VACCINE (4 - PPSV23 or PCV20)] Future Scheduled 2022-01-[address] [facility] Test 14:07:20 [code = INFLUENZA VACCINE] Future Scheduled 2022-01-29 SHINGLES VACCINES (1 [facility] Test 14:07:20 of 2) [code = SHINGLES VACCINES (1 of 2)] Future Scheduled 2022-01-29 BREAST CANCER [facility] Test 14:07:20 SCREENING [code = BREAST CANCER SCREENING] Future Scheduled 2022-01-29 COLONOSCOPY SCREENING [facility] Test 14:07:20 [code = COLONOSCOPY SCREENING] Future Scheduled 2022-01-29 HEPATITIS B VACCINES [facility] Test 14:07:20 (1 of 3 - Risk 3-dose series) [code = HEPATITIS B VACCINES (1 of 3 - Risk 3-dose series)] Future Scheduled 2022-01-29 COVID-19 VACCINE (3 - [facility] Test 14:07:20 Booster for Pfizer series) [code = COVID-19 VACCINE (3 - Booster for Pfizer series)] Future Scheduled 2022-01-29 65+ PNEUMOCOCCAL [facility] Test 14:07:20 VACCINE (4 - PPSV23 or PCV20) [code = 65+ PNEUMOCOCCAL VACCINE (4 - PPSV23 or PCV20)] Future Scheduled 2022-01-[address] [facility] Test 14:07:20 [code = INFLUENZA VACCINE] Future Scheduled 2022-01-29 SHINGLES VACCINES (1 [facility] Test 14:07:20 of 2) [code = SHINGLES VACCINES (1 of 2)] Future Scheduled 2022-01-29 BREAST CANCER [facility] Test 14:07:20 SCREENING [code = BREAST CANCER SCREENING] Future Scheduled 2022-01-29 COLONOSCOPY SCREENING [facility] Test 14:07:20 [code = COLONOSCOPY SCREENING] Future Scheduled 2022-01-29 HEPATITIS B VACCINES [facility] Test 14:07:20 (1 of 3 - Risk 3-dose series) [code = HEPATITIS B VACCINES (1 of 3 - Risk 3-dose series)] Future Scheduled 2022-01-29 COVID-19 VACCINE (3 - [facility] Test 14:07:20 Booster for Pfizer series) [code = COVID-19 VACCINE (3 - Booster for Pfizer series)] Future Scheduled 2022-01-29 65+ PNEUMOCOCCAL [facility] Test 14:07:20 VACCINE (4 - PPSV23 or PCV20) [code = 65+ PNEUMOCOCCAL VACCINE (4 - PPSV23 or PCV20)] Future Scheduled 2022-01-[address] [facility] Test 14:07:20 [code = INFLUENZA VACCINE] Future Scheduled 2022-01-29 SHINGLES VACCINES (1 [facility] Test 14:07:20 of 2) [code = SHINGLES VACCINES (1 of 2)] Future Scheduled 2022-01-29 BREAST CANCER [facility] Test 14:07:20 SCREENING [code = BREAST CANCER SCREENING] Future Scheduled 2022-01-29 COLONOSCOPY SCREENING [facility] Test 14:07:20 [code = COLONOSCOPY SCREENING] Future Scheduled 2022-01-29 HEPATITIS B VACCINES [facility] Test 14:07:20 (1 of 3 - Risk 3-dose series) [code = HEPATITIS B VACCINES (1 of 3 - Risk 3-dose series)] Future Scheduled 2022-01-29 COVID-19 VACCINE (3 - Me [facility] Test 14:07:20 Booster for Pfizer series) [code = COVID-19 VACCINE (3 - Booster for Pfizer series)] Future Scheduled 2022-01-29 65+ PNEUMOCOCCAL [facility] Test 14:07:20 VACCINE (4 - PPSV23 or PCV20) [code = 65+ PNEUMOCOCCAL VACCINE (4 - PPSV23 or PCV20)] Future Scheduled 2022-01-[address] [facility] Test 14:07:20 [code = INFLUENZA VACCINE] Future Scheduled 2022-01-20 SHINGLES VACCINES (1 [facility] Test 06:12:34 of 2) [code = SHINGLES VACCINES (1 of 2)] Future Scheduled 2022-01-20 Screening for [facility] Test 06:12:34 malignant neoplasm of cervix (procedure) [code = 250494449] Future Scheduled 2022-01-20 BREAST CANCER [facility] Test 06:12:34 SCREENING [code = BREAST CANCER SCREENING] Future Scheduled 2022-01-20 COLONOSCOPY SCREENING [facility] Test 06:12:34 [code = COLONOSCOPY SCREENING] Future Scheduled 2022-01-20 HEPATITIS B VACCINES [facility] Test 06:12:34 (1 of 3 - Risk 3-dose series) [code = HEPATITIS B VACCINES (1 of 3 - Risk 3-dose series)] Future Scheduled 2022-01-20 COVID-19 VACCINE (3 - [facility] Test 06:12:34 Booster for Pfizer series) [code = COVID-19 VACCINE (3 - Booster for Pfizer series)] Future Scheduled 2022-01-20 65+ PNEUMOCOCCAL [facility] Test 06:12:34 VACCINE (4 - PPSV23 or PCV20) [code = 65+ PNEUMOCOCCAL VACCINE (4 - PPSV23 or PCV20)] Future Scheduled 2022-01-[address] [facility] Test 06:12:34 [code = INFLUENZA VACCINE] Future Scheduled 2022-01-16 SHINGLES VACCINES (1 [facility] Test 12:09:25 of 2) [code = SHINGLES VACCINES (1 of 2)] Future Scheduled 2022-01-16 Screening for [facility] Test 12:09:25 malignant neoplasm of cervix (procedure) [code = 222090333] Future Scheduled 2022-01-16 BREAST CANCER [facility] Test 12:09:25 SCREENING [code = BREAST CANCER SCREENING] Future Scheduled 2022-01-16 COLONOSCOPY SCREENING [facility] Test 12:09:25 [code = COLONOSCOPY SCREENING] Future Scheduled 2022-01-16 HEPATITIS B VACCINES [facility] Test 12:09:25 (1 of 3 - Risk 3-dose series) [code = HEPATITIS B VACCINES (1 of 3 - Risk 3-dose series)] Future Scheduled 2022-01-16 COVID-19 VACCINE (3 - [facility] Test 12:09:25 Booster for Pfizer series) [code = COVID-19 VACCINE (3 - Booster for Pfizer series)] Future Scheduled 2022-01-16 65+ PNEUMOCOCCAL [facility] Test 12:09:25 VACCINE (4 - PPSV23 or PCV20) [code = 65+ PNEUMOCOCCAL VACCINE (4 - PPSV23 or PCV20)] Future Scheduled 2022-01-[address] [facility] Test 12:09:25 [code = INFLUENZA VACCINE] Future Scheduled 2022-01-14 SHINGLES VACCINES (1 [facility] Test 04:11:46 of 2) [code = SHINGLES VACCINES (1 of 2)] Future Scheduled 2022-01-14 Screening for [facility] Test 04:11:46 malignant neoplasm of cervix (procedure) [code = [id number]] Future Scheduled 2022-01-14 BREAST CANCER [facility] Test 04:11:46 SCREENING [code = BREAST CANCER SCREENING] Future Scheduled 2022-01-14 COLONOSCOPY SCREENING [facility] Test 04:11:46 [code = COLONOSCOPY SCREENING] Future Scheduled 2022-01-14 HEPATITIS B VACCINES [facility] Test 04:11:46 (1 of 3 - Risk 3-dose series) [code = HEPATITIS B VACCINES (1 of 3 - Risk 3-dose series)] Future Scheduled 2022-01-14 COVID-19 VACCINE (3 - [facility] Test 04:11:46 Booster for Pfizer series) [code = COVID-19 VACCINE (3 - Booster for Pfizer series)] Future Scheduled 2022-01-14 65+ PNEUMOCOCCAL [facility] Test 04:11:46 VACCINE (4 - PPSV23 or PCV20) [code = 65+ PNEUMOCOCCAL VACCINE (4 - PPSV23 or PCV20)] Future Scheduled 2022-01-14 INFLUENZA VACCINE Method [facility] Test 04:11:46 [code = INFLUENZA VACCINE] Future Scheduled 2021-08-26 Screening for [facility] Test 13:02:23 malignant neoplasm of cervix (procedure) [code = 932508135] Future Scheduled 2021-08-26 BREAST CANCER [facility] Test 13:02:23 SCREENING [code = BREAST CANCER SCREENING] Future Scheduled 2021-08-26 COLONOSCOPY SCREENING [facility] Test 13:02:23 [code = COLONOSCOPY SCREENING] Future Scheduled 2021-08-26 Screening for [facility] Test 13:02:23 malignant neoplasm of lung (procedure) [code = 769599342] Future Scheduled 2021-08-26 SHINGLES VACCINES (#1) [facility] Test 13:02:23 [code = SHINGLES VACCINES (#1)] Future Scheduled 2021-08-26 COVID-19 VACCINE (3 - [facility] Test 13:02:23 Pfizer risk 4-dose series) [code = COVID-19 VACCINE (3 - Pfizer risk 4-dose series)] Future Scheduled 2021-08-26 65+ PNEUMOCOCCAL [facility] Test 13:02:23 VACCINE (4 of 4 - PPSV23) [code = 65+ PNEUMOCOCCAL VACCINE (4 of 4 - PPSV23)] Future Scheduled 2021-08-[address] [facility] Test 13:02:23 [code = INFLUENZA VACCINE] Encounters Start End Encounter Admission Attending Care Care Encounter Source Date/Time Date/Time Type Type Clinicians Facility Department ID 2022-02-18 Outpatient W [facility] [id number] [place] 14:30:[address] [place] [address] 2021-07-14 Outpatient SADIKOVIC, [facility] [id number] [place] 09:33:51 [facility] 2021-06-02 Outpatient HEMATPOUR, [facility] [id number] [place] 13:58:59 [facility] 2021-04-28 Outpatient HEMATPOUR, [facility] [id number] [place] 11:21:22 [facility] 2021-03-20 Emergency [facility] [id number] Univers 16:07:[facility] 2020-12-12 Out[facility] HEMATPOUR[facility] [id number] [place] 08:16:46 [facility] 2020-10-31 Outpatient HEMATPOUR, [facility] [id number] [place] 09:44:50 [facility] 2020-09-30 Outpatient HEMATPOUR, [facility] [id number] [place] 13:16:03 [place] Wingt 2022-04-07 2022-04-07 Outpatient R [facility], [facility] [id number] Univers 20:40:00 20:40:00 [facility] 2022-04-07 2022-04-07 [facility] 1.2.825.306 [id number] Univers 00:00:00 00:00:00 Robbi Hairston SCALLOP BINDER 350.1.13.10 ity of [facility] 4.2.7.2.686 Yomi as MATERNAL [phone] Med ical & CHILD [address] [place] [address] 2022-03-05 2022-03-05 Central Scheduler [facility] UNIVERSIT 1.2.840.114 [id number] Univers 13:45:00 14:00:00 [facility] 350.1.13.[address] [facility] [place] [id number] [address] 2022-03-05 2022-03-05 Outpatient R [facility] [id number] Univers 13:45:00 13:45:00 [facility] 2022-02-26 2022-02-26 Outpatient R [facility] [id number] Univers 08:30:00 08:30:00 [facility] 2022-02-26 2022-02-26 Outpatient R [facility] [id number] Univers 08:30:00 08:30:00 [facility] 2022-02-17 2022-02-17 Transition ADELAIDE Whiteside 1.2.840.114 [id number] Univers 00:00:00 00:00:00 of Care Isaias LYCNH 350.1.13.10 ity of [place] [phone] [facility] [address] 2022-02-10 2022-02-16 Inpatient X FRANK [facility] FAVIO [id number] Univers 22:59:00 19:27:00 TOMY barbosa of [facility] 2022-02-10 2022-02-16 Hospital Reilly Means [facility] 1.2.840.1 14 [id number] Univers 22:59:00 19:27:00 Encounter CorneliusOfe [facility] 350.1.13.10 ity of [place] 4.2.7.2.686 [facility] [phone] [facility] [address] ([facility]) 2022-02-11 2022-02-11 Telephone [facility], [facility] 1.2.840.114 [id number] Univers 00:00:00 00:00:00 [facility] 350.1.13.10 i ty of CL[place] [id number] [place] [address] 2022-01-30 2022-01-30 Telephone [facility], [facility] 1.2.840.114 [id number] Univers 00:00:00 00:00:00 [facility] 350.1.13.10 i ty of [place] [id number] [place] [address] [place] 2022-01-06 2022-01-06 Orders Doctor FERMIN 1.2.840.114 [id number] Univers 00:00:00 00:00:00 Only Unassigned, JACKELINE 350.1.13.10 [place] [facility] 4.2.7.2.686 Yomi as [phone] [address] 2021-12-25 2021-12-25 Orders Doctor FERMIN 1.2.840.114 [id number] Univers 00:00:00 00:00:00 Only Unassigned, JACKELINE 350.1.13.10 [place] of [place] [facility] 4.2.7.2.686 Yomi as [phone] [address] 2021-12-12 2021-12-13 Emergency X Bill COLES [facility] ERT [id number] Univers 23:53:00 01:52:00 ity of [facility] 2021-12-12 2021-12-13 Emergency Bill Coles [facility] 1.2.840.114 [id number] Univers 23:53:00 01:52:00 Kiersten BULLOCK 350.1.13.10 i ty of [place] [phone] [facility] [address] 2021-11-20 2021-11-20 Central Scheduler [facility] UNIVERSIT 1.2.840.114 [id number] Univers 09:45:00 10:00:00 Visit [facility] 350.1.13.[address] [facility] 4[place] [id number] [facility] [address] 2021-11-20 2021-11-20 Office [facility] 1.2.981.209 [id number] Univers 08:30:00 09:00:00 Visit [facility] 350.1.13.[address] [facility] 4.2.7.2.[place] [id number] [facility] 089 [place] 2021-11-20 2021-11-20 Outpatient R [facility] [id number] Univers 08:30:00 08:30:00 [facility] 2021-11-20 2021-11-20 Outpatient R [facility] [id number] Univers 08:30:00 08:30:00 [facility] 2021-11-20 2021-11-20 Outpatient R [facility] [id number] Univers 08:30:00 08:30:00 [facility] 2021-11-20 2021-11-20 Outpatient R [facility] [id number] Univers 08:30:00 08:30:00 [facility] 2021-10-24 2021-10-24 Emergency X WALKER [facility] ERT [id number] Univers 16:27:00 22:26:00 CHARITY barbosa [facility] 2021-10-24 2021-10-24 Emergency X WALKER [facility] ERT [id number] Univers 16:27:00 22:26:00 CHARITY barbosa [facility] 2021-10-24 2021-10-24 Emergency Reilly Means [facility] 1.2.840. 114 [id number] Univers 16:27:00 22:26:00 Charity Mcallister 350.1.13.10 ity of [facility] 4.2.7.2.686 [facility] [phone] [address] 2021-10-23 2021-10-24 Emergency [facility] E[facility] [id number] Univers 20:22:00 02:57:00 [facility] 2021-10-23 2021-10-24 Emergency [facility] 1.2.886.031 [id number] Univers 20:22:00 02:57:00 [facility] 350.1.13.10 ity of [place] 4.2.7.2.686 [facility] [id number] [address] 2021-09-07 2021-09-07 Outpatient R SELF, [facility] [id number] Univers 08:00:00 08:00:00 GADIEL rodas [facility] 2021-09-07 2021-09-07 Outpatient R SELF, [facility] [id number] Univers 08:00:00 08:00:00 GADIEL rodas [facility] 2021-08-21 2021-08-21 [facility] [id number] Univers 10:45:00 10:45:00 SANTIAGO barbosa [facility] 2021-08-21 2021-08-21 Central Scheduler [place] Cardenas 1.2.840.1 [id number] Univers 10:45:00 10:45:00 Visit c-Lab 57024.1.1 ity of 3.104.2.7 [place] .3.210066 Medica l .8 [place] 2021-08-21 2021-08-21 Office Ronald 1.2.840.9 [id number] Univers 08:30:00 09:00:00 Visit Santiago 83774.1.1 ity of 3.104.2.7 [place] .3.389833 Medica l .8 Branch 2021-08-21 2021-08-21 Office [place], UNIVERSIT 1.2.961.394 [id number] Univers 08:30:00 09:00:[address] [facility] 350.1.13.10 i ty of CLINICS 4.2.7.2.686 Richi bach [phone] [facility] 0[address] Branch 2021-08-21 2021-08-21 Outpatient R [facility] [id number] Univers 08:30:00 08:30:00 SANTIAGO barbosa [facility] 2021-08-21 2021-08-21 Travel 1.2.840.1 1.2.927.116 [id number] Univers 00:00:00 00:00:00 15871.1.1 350.1.13.10 ity of 3.104.2.7 4.[place].3.698 [place] .3.036878 084.8 Medica l .8 [place] 2021-08-14 2021-08-14 Telephone [place], 1.2.840.6 [id number] Univers 00:00:00 00:00:00 [place] 38983.1.1 ity of 3.104.2.7 [place] .3.834517 Medica l .8 [place] 2021-08-13 2021-08-13 Telephone [place], 1.2.840.7 [id number] Univers 00:00:00 00:00:00 [place] 03249.1.1 ity of 3.104.2.7 [place] .3.267892 Medica l .8 [place] 2021-08-11 2021-08-11 Outpatient [facility] [id number] Univers 08:00:00 08:00:00 SANTIAGO familia [facility] 2021-08-05 2021-08-05 Inpatient RAUL Lund [facility] [id number] [facility] 05:24:00 05:24:00 Mike 31 [facility] 2021-07-20 2021-07-20 Outpatient [facility] [id number] Univers 10:00:00 10:00:00 [facility] 2021-07-14 2021-07-14 Office Pankaj, UTP 6400 1.2.840.114 [id number] [place] 08:45:00 09:34:[address] 350.1.13.58 Health 9.2.7.2.686 [id number] 1 2021-07-09 2021-07-09 Telephone Maryjanepolzi, UTP 6400 1.2.840.114 [id number] [place] 00:00:00 00:00:[address] 350.1.13.58 Health 9.2.7.2.686 [id number] 1 2021-07-09 2021-07-09 Telephone Kinjal, UTP 6400 1.2.840.114 [id number] [place] 00:00:00 00:00:[address] 350.1.13.58 Health 9.2.7.2.686 [id number] 1 2021-07-03 2021-07-03 Outpatient R EAST, [facility] [id number] Univers 08:00:00 08:00:00 [facility] 2021-06-17 2021-06-17 Inpatient RAUL Lund, HCACL INTE.02 [id number] [facility] 10:56:00 14:36:[address] 2021-06-15 2021-06-15 Outpatient R SELF, [facility] [id number] Univers 10:15:00 11:07:21 GADIEL vogel [facility] 2021-06-15 2021-06-15 Outpatient R SELF, [facility] [id number] Univers 10:15:00 10:15:00 GADIEL vogel [facility] 2021-06-15 2021-06-15 Outpatient R SELF, [facility] [id number] Univers 10:15:00 10:15:00 GADIEL vogel [facility] 2021-06-15 2021-06-15 Orders Doctor 1.2.840.0 [id number] Univers 00:00:00 00:00:00 Only Unassigned, 29309.1.1 ity of [place] 3.104.2.7 [place] .3.117470 Medica l .8 Branch 2021-06-15 2021-06-15 Travel 1.2.840.1 1.2.995.414 [id number] Univers 00:00:00 00:00:00 54559.1.1 350.1.13.10 ity of 3.104.2.7 4.[place].7.3.698 [place] .3.915744 084.8 Medica l .8 Branch 2021-06-11 2021-06-11 Refill [facility], UNIVERSIT 1.2.336.376 [id number] Univers 00:00:00 00:00:00 [facility] 350.1.13.10 i ty of CLINICS [place] [id number] [place] [address] [place] 2021-06-11 2021-06-11 Refill [facility], 1.2.840.9 [id number] Univers 00:00:00 00:00:00 [place] 09502.1.1 ity of 3.104.2.7 [place] .3.782816 Medica l .8 [place] 2021-06-05 2021-06-05 Outpatient R [facility] [id number] Univers 09:00:00 09:00:00 SANTIAGO ity of [facility] 2021-06-02 2021-06-02 Telephone [facility], UNIVERSIT 1.2.840.114 [id number] Univers 00:00:00 00:00:00 [facility] 350.1.13.10 i ty of [place] [id number] [place] [address] [place] 2021-06-02 2021-06-02 Telephone East, 1.2.840.2 [id number] Univers 00:00:00 00:00:00 [place] 16685.1.1 ity of 3.104.2.7 [place] .3.294329 Medica l .8 [place] 2021-05-29 2021-05-29 Telephone [place], 1.2.840.9 [id number] Univers 00:00:00 00:00:00 [place] 24863.1.1 ity of 3.104.2.7 [place] .3.510730 Medica l .8 [place] 2021-05-29 2021-05-29 Telephone [place], 1.2.840.8 [id number] Univers 00:00:00 00:00:00 [place] 89329.1.1 ity of 3.104.2.7 [place] .3.796706 Medica l .8 [place] 2021-05-25 2021-05-25 Outpatient R RODO, [facility] [id number] Univers 08:00:00 08:00:00 GADIEL vogel f [facility] 2021-04-29 2021-04-29 Outpatient R LALA, [facility] [id number] Univers 08:00:00 08:00:00 NIKOLAI barbosa [facility] 2021-04-28 2021-04-28 Telephone [place], [facility] 6400 1.2.840.114 [id number] [place] 00:00:00 00:00:[address] 350.1.13.58 Health 9.2.7.2.686 [id number] 1 2021-04-28 2021-04-28 Telephone Jailyn, 1.2.840.4 [id number] 21 [id number] Methodi 00:00:00 00:00:[address] 3.430.2.7 Hospit a .3.910060 l .8 2021-04-28 2021-04-28 Telephone Jailyn, 1.2.840.9 [id number] 21 [id number] Methodi 00:00:00 00:00:[address] 3.430.2.7 Hospit a .3.504680 l .8 2021-03-31 2021-03-31 Orders Carol Ann, 1.2.840.1 [id number] 21 [id number] Methodi 00:00:00 00:00:00 Only Sarai Lieberman 84952.1.1 979 s t 3.430.2.7 Hospit a .3.664079 l .8 2021-03-30 2021-03-30 Outpatient R RODO, [facility] [id number] Univers 08:45:00 08:45:00 GADIEL barbosa o f [facility] 2021-03-24 2021-03-24 Telephone Jailyn, 1.2.840.7 [id number] Methodi 00:00:00 00:00:[address] 3.430.2.7 Hospit a .3.434955 l .8 2021-02-13 2021-02-13 Telephone Ronald, 1.2.840.4 [id number] Univers 00:00:00 00:00:00 [place] 27085.1.1 ity of 3.104.2.7 [place] .3.353083 Medica l .8 [place] 2021-01-28 2021-01-28 [facility] [id number] Univers 08:45:00 09:37:00 NIKOLAI familia of [facility] 2021-01-28 2021-01-28 Travel 1.2.840.1 1.2.374.001 [id number] Univers 00:00:00 00:00:00 89298.1.1 350.1.13.10 ity of 3.104.2.7 4[place].3.698 [place] .3.941314 084.8 Medica l .8 [place] 2021-01-19 2021-01-19 Telephone Prabhu, 1.2.840.1 [id number] [id number] Methodi 00:00:00 00:00:[address] 3.430.2.7 Hospit a .3.461334 l .8 2021-01-04 2021-01-04 Letter Shelia, 1.2.840.7 [id number] Univers 00:00:00 00:00:00 (Out) Dagoberto Peterson 18044.1.1 ity of 3.104.2.7 [place] .3.552035 Medica l .8 Branch 2021-01-04 2021-01-04 Dmitry Bass, 1.2.840.9 [id number] Univers 00:00:00 00:00:00 (Out) Dagoberto H 47468.1.1 ity of 3.104.2.7 [place] .3.067682 Medica l .8 Branch 2021-01-03 2021-01-03 Dmitry Bass, 1.2.840.4 [id number] 790 Univers 00:00:00 00:00:00 (Out) Dagoberto H 00222.1.1 ity of 3.104.2.7 [place] .3.837547 Medica l .8 Branch 2021-01-03 2021-01-03 Dmitry Bass, 1.2.840.3 [id number] 790 Univers 00:00:00 00:00:00 (Out) Dagoberto H 87729.1.1 ity of 3.104.2.7 [place] .3.336806 Medica l .8 [place] 2021-01-02 2021-01-02 Outpatient R [facility] [id number] Univers 13:40:00 13:40:00 ity of [facility] 2021-01-02 2021-01-02 Laboratory Cuba Franks 1.2.840.4 [id number] Univers 12:14:13 12:57:34 Only Lab, [place] 68170.1.1 ity of 3.104.2.7 [place] .3.926844 Medica l .8 [place] 2021-01-02 2021-01-02 Laboratory [place] Franks 1.2.840.2 [id number] Univers 12:14:13 12:57:34 Only Lab, [place] 24329.1.1 ity of 3.104.2.7 [place] .3.783776 Medica l .8 Branch 2021-01-02 2021-01-02 Travel 1.2.840.1 1.2.283.245 [id number] 2306 Univers 00:00:00 00:00:00 66279.1.1 350.1.13.10 ity of 3.104.2.7 4[place].7.3.698 [place] .3.847987 084.8 Medica l .8 Branch 2021-01-02 2021-01-02 Letter Doctor 1.2.840.9 [id number] Univers 00:00:00 00:00:00 (Out) Unassigned, 65504.1.1 [place]y of [place] 3.104.2.7 [place] .3.502281 Medica l .8 Branch 2021-01-02 2021-01-02 Letter Doctor 1.2.840.8 [id number] 946 Univers 00:00:00 00:00:00 (Out) Unassigned, 34002.1.1 ity of [place] 3.104.2.7 [place] .3.418519 Medica l .8 [place] 2021-01-02 2021-01-02 Travel 1.2.840.1 1.2.010.948 [id number] Univers 00:00:00 00:00:00 10329.1.1 350.1.13.10 ity of 3.104.2.7 4.2.7.3.698 [place] .3.962400 084.8 Medica l .8 Branch 2021-01-02 2021-01-02 Letter Doctor 1.2.840.0 [id number] Univers 00:00:00 00:00:00 (Out) Unassigned, 03583.1.1 ity of [place] 3.104.2.7 [place] .3.372794 Medica l .8 Branch 2021-01-02 2021-01-02 Letter Doctor 1.2.840.5 [id number] Univers 00:00:00 00:00:00 (Out) Unassigned, 38459.1.1 [place] 3.104.2.7 [place] .3.861704 Medica l .8 Branch 2020-12-22 2020-12-22 Telephone Devin, 1.2.840.2 [id number] [id number] Univers 00:00:00 00:00:00 Eligionda R 19447.1.1 i ty of 3.104.2.7 [place] .3.640566 Medica l .8 [place] 2020-12-22 2020-12-22 Telephone Devin, 1.2.840.5 [id number] 862 [id number] Univers 00:00:00 00:00:00 Devina R 95393.1.1 i ty of 3.104.2.7 [place] .3.295010 Medica l .8 [place] 2020-12-12 2020-12-12 Office [place], UTP 6400 1.2.840.114 12 [id number] [place] 07:42:02 08:18:[address] 350.1.13.58 Health 9.2.7.2.686 [id number] 1 2020-12-12 2020-12-12 Office [place], UTP 6400 1.2.840.114 12 [id number] 07:42:02 08:18:50 Visit Maríawyattayar [address] 350.1.13.58 9.2.7.2.686 [id number] 1 2020-12-09 2020-12-09 Telephone Carol Ann, 1.2.840.1 [id number] Methodi 00:00:00 00:00:00 Sarai Lieberman 19262.1.1 316 s t 3.430.2.7 Hospit a .3.115243 l .8 2020-12-08 2020-12-08 [facility], 1.2.840.1 [id number] [id number] Methodi 12:35:54 23:59:00 Encounter Ray 87000.1.[address] 3.430.2.7 Hospit a .3.966627 l .8 2020-12-08 2020-12-08 [facility], 1.2.840.1 [id number] Methodi 17:25:00 17:30:[address] 3.430.2.7 Hospit a .3.210388 l .8 2020-12-08 2020-12-08 Office Chihara, 1.2.840.1 [id number] Methodi 10:30:00 11:39:56 Visit Ray 73086.1.[address] 3.430.2.7 Hospit a .3.787607 l .8 2020-12-08 2020-12-08 Travel 1.2.840.1 1.2.413.393 3499 378231 Methodi 00:00:00 00:00:[address] 3.430.2.7 0.2.7.3.698 Ho spita .3.879247 084.8 l .8 2020-12-02 2020-12-02 Central Scheduler Santiago Cardenas 1.2.840.1 [id number] [facility] 10:20:06 10:36:19 Visit [facility] 12879.1.1 ity of 3.104.2.7 [place] .3.482897 Medica l .8 [place] 2020-12-02 2020-12-02 Central Scheduler Santiago Cardenas 1.2.840.1 [id number] [facility] 10:20:06 10:36:19 Visit c-Lab 64170.1.1 ity of 3.104.2.7 [place] .3.701165 Medica l .8 [place] 2020-12-02 2020-12-02 Central Scheduler [facility]ERSIT 1.2.840.114 8 [id number] 10:20:06 10:36:[address] [facility] 350.1.13.10 CLINICS 4.2.7.2.686 [id number] 316 2020-12-02 2020-12-02 Office Ronald, 1.2.840.8 [id number] 528 Univers 08:31:37 09:01:37 Visit Santiago 62457.1.1 ity of 3.104.2.7 [place] .3.842373 Medica l .8 [place] 2020-12-02 2020-12-02 Outpatient R [facility] [place] [id number] Univers 09:00:00 09:00:00 SANTIAGO barbosa of [facility] 2020-11-25 2020-11-25 Office Devin, 1.2.840.1 [id number] [id number] Univers 11:06:30 11:58:14 Visit Robbi Hairston 07807.1.1 i ty of 3.104.2.7 [place] .3.949653 Medica l .8 [place] 2020-11-25 2020-11-25 Office Devin, 1.2.840.6 [id number] 865 Univers 11:06:30 11:58:14 Visit Robbi R 92759.1.1 i ty of 3.104.2.7 [place] .3.759903 Medica l .8 [place] 2020-11-25 2020-11-25 [facility] 1.2.840.114 [id number] 11:06:30 11:58:14 Visit Robbi Hairston [facility] 350.1.13.10 REGIONAL 4.2.7.2.686 MATERNAL [id number] & CHILD [address] [place] [address] 2020-11-25 2020-11-25 Outpatient R [facility] [id number] Univers 11:00:00 11:00:00 ity of [facility] 2020-11-25 2020-11-25 Telephone Devin, 1.2.840.1 [id number] 855 [id number] Univers 00:00:00 00:00:00 Robbi Hairston 43455.1.1 i ty of 3.104.2.7 [place] .3.939858 Medica l .8 [place] 2020-11-25 2020-11-25 Refill East, 1.2.840.5 [id number] 592 Univers 00:00:00 00:00:00 Santiago 53814.1.1 ity of 3.104.2.7 [place] .3.647804 Medica l .8 [place] 2020-11-25 2020-11-25 Travel 1.2.840.1 1.2.522.729 0578 0247 Univers 00:00:00 00:00:00 37626.1.1 350.1.13.10 ity of 3.104.2.7 4.[place].7.3.698 [place] .3.047983 084.8 Medica l .8 Branch 2020-11-25 2020-11-25 Orders Doctor 1.2.840.0 [id number] 064 Univers 00:00:00 00:00:00 Only Unassigned, 25560.1.1 ity of [place] 3.104.2.7 [place] .3.234397 Medica l .8 Branch 2020-11-25 2020-11-25 Telephone Beltran, 1.2.840.8 [id number] 855 13197 Univers 00:00:00 00:00:00 Roshunda R 70383.1.1 i ty of 3.104.2.7 [place] .3.605881 Medica l .8 Branch 2020-11-25 2020-11-25 Refill [facility], 1.2.840.0 [id number] 592 Univers 00:00:00 00:00:00 Santiago 29340.1.1 ity of 3.104.2.7 [place] .3.443040 Medica l .8 Branch 2020-11-25 2020-11-25 Travel 1.2.840.1 1.2.839.020 6610 0247 Univers 00:00:00 00:00:00 53016.1.1 350.1.13.10 ity of 3.104.2.7 4.2.7.3.698 [place] .3.593118 084.8 Medica l .8 [place] 2020-11-25 2020-11-25 Orders Doctor 1.2.840.0 [id number] 064 Univers 00:00:00 00:00:00 Only Unassigned, 72452.1.1 ity of [place] 3.104.2.7 [place] .3.870029 Medica l .8 Branch 2020-11-25 2020-11-25 [facility] 1.2.084.020 5055 4592 00:00:00 00:00:00 [facility] 350.1.13.10 CLINICS 4.2.7.2.686 230.4991956 089 2020-11-25 2020-11-25 [facility] 1.2.521.256 4237 0821 00:00:00 00:00:00 Robbi Marika [facility] 350.1.13.10 REGIONAL 4.2.7.2.686 MATERNAL [id number] & CHILD [address] [place] [address] 2020-11-14 2020-11-14 Abstract Rodas, 1.2.840.1 [id number] 17462 Methodi 00:00:00 00:00:[address] 3.430.2.7 Hospit a .3.829272 l .8 2020-11-14 2020-11-14 Telephone Clark, 1.2.840.1 [id number] 2100 557188 Methodi 00:00:00 00:00:[address] 3.430.2.7 Hospit a .3.276604 l .8 2020-11-12 2020-11-12 [facility] [id number] Univers 08:30:00 08:30:00 SANTIAGO barbosa [facility] 2020-11-07 2020-11-07 Telephone Agustina Ortiz 6400 1.2.840.11 4 [id number] [place] 00:00:00 00:00:[address] 350.1.13.58 Health 9.2.7.2.686 [id number] 1 2020-11-07 2020-11-07 Telephone KIMBERLEY Ortiz 6400 1.2.840.114 124 [id number] 00:00:00 00:00:[address] 350.1.13.58 9.2.7.2.686 [id number] 1 2020-10-31 2020-10-31 Office KIMBERLEY De Souza 6400 1.2.840.114 12 [id number] [place] 07:54:00 09:45:[address] 350.1.13.58 Health 9.2.7.2.686 [id number] 1 2020-10-30 2020-10-30 Abstract Rody Maguire UTP 6400 1.2.840.1 14 [id number] [place] 00:00:00 00:00:[address] 350.1.13.58 Health 9.2.7.2.686 [id number] 1 2020-10-29 2020-10-29 Refill East, 1.2.840.5 [id number] 400 Univers 00:00:00 00:00:00 Santiago 00121.1.1 ity of 3.104.2.7 [place] .3.532057 Medica l .8 Branch 2020-10-29 2020-10-29 Refill East, 1.2.840.3 [id number] 50446 400 Univers 00:00:00 00:00:00 Santiago 12055.1.1 ity of 3.104.2.7 [place] .3.726196 Medica l .8 [place] 2020-10-27 2020-10-27 Telephone Jailyn, 1.2.840.0 [id number] 21 [id number] Methodi 00:00:00 00:00:[address] 3.430.2.7 Hospit a .3.443225 l .8 2020-10-24 2020-10-24 Telephone Clark, 1.2.840.1 [id number] 2100 440033 Methodi 00:00:00 00:00:[address] 3.430.2.7 Hospit a .3.533018 l .8 2020-10-22 2020-10-22 Outpatient R SELF, [facility] [id number] Univers 13:00:00 13:00:00 GADIEL rodas [facility] 2020-10-22 2020-10-22 Travel 1.2.840.1 1.2.264.168 8302 3839 Univers 00:00:00 00:00:00 12132.1.1 350.1.13.10 ity of 3.104.2.7 4.2.7.3.698 [place] .3.116452 084.8 Medica l .8 Branch 2020-10-22 2020-10-22 Travel 1.2.840.1 1.2.735.788 7669 3839 [facility] 00:00:00 00:00:00 84180.1.1 350.1.13.10 ity of 3.104.2.7 4.2.7.3.698 [place] .3.429658 084.8 Medica l .8 Branch 2020-10-13 2020-10-13 Outpatient R SELF, [facility] [id number] Univers 08:45:00 08:45:00 GADIEL maciely o f [facility] 2020-10-06 2020-10-12 [facility] 1.2.840.1 [id number] Methodi 15:30:00 00:08:46 ne Ray [address]1378.1.[address] 3.430.2.7 Hospit a .3.635111 l .8 2020-09-30 2020-09-30 [facility] 1.2.840.2 [id number] Methodi 00:00:00 00:00:[address] 3.430.2.7 Hospit a .3.568869 l .8 2020-09-21 2020-09-21 Travel 1.2.840.1 1.2.149.550 3258 [id number] Methodi 00:00:00 00:00:[address] 3.430.2.7 0.2.7.3.698 Ho spita .3.476020 084.8 l .8 2020-09-06 2020-09-06 [facility] 1.2.840.1 [id number] 08080 Methodi 17:42:30 23:59:[address] 3.430.2.7 Hospit a .3.178616 l .8 2020-09-06 2020-09-06 [facility], 1.2.840.1 [id number] 2099 [id number] Methodi 16:50:00 17:41:00 Encounter Ray [address]354.1.[address] 3.430.2.7 Hospit a .3.119443 l .8 2020-09-05 2020-09-05 [facility], 1.2.840.1 [id number] 2099 [id number] Methodi 09:17:00 19:45:00 Encounter Ray [address]41.1.[address] 3.430.2.7 Hospit a .3.560285 l .8 2020-09-05 2020-09-05 Surgery [facility], 1.2.840.1 [id number] 98252 Methodi 11:30:00 13:15:[address] 3.430.2.7 Hospit a .3.070240 l .8 2020-09-05 2020-09-05 Anesthesia [facility], 1.2.840.1 [id number] 862 [id number] Methodi 11:27:00 12:20:00 Event Anupamwathi 93460.1.1 243 s t V. 3.430.2.7 Hospit a .3.281956 l .8 2020-09-05 2020-09-05 Travel 1.2.840.1 1.2.341.073 1521 478233 Methodi 00:00:00 00:00:[address] 3.430.2.7 0.2.7.3.698 Ho spita .3.033241 084.8 l .8 2020-09-04 2020-09-04 Telephone [facility], 1.2.840.1 [id number] Methodi 00:00:00 00:00:00 Sarai M. 30068.1.1 762 s t 3.430.2.7 Hospit a .3.852336 l .8 2020-09-02 2020-09-02 Tele[facility] 1.2.840.8 [id number] Methodi 00:00:00 00:00:00 Sarai M. 86976.1.1 344 s t 3.430.2.7 Hospit a .3.529203 l .8 2020-08-29 2020-08-30 Bedded [facility] [id number] [facility] 10:20:00 14:10:00 Outpatient r [address] 2020-08-29 2020-08-30 Outpatient HEMATPOUR, [facility] CAR [address] [facility] 05:20:00 09:10:00 BEVERLY 2020-08-06 2020-08-06 Office East, 1.2.840.5 [id number] Univers 08:03:23 09:17:49 Visit Santiago 22934.1.1 ity of 3.104.2.7 [place] .3.498625 Medica l .8 [place] 2020-08-06 2020-08-06 Outpatient R [facility] [id number] Univers 08:30:00 08:30:00 SANTIAGO ity of [facility] 2020-07-14 2020-07-14 Outpatient R [facility] [id number] Univers 09:30:00 09:30:00 GADIEL barbosa o clark [facility] 2020-07-14 2020-07-14 Travel 1.2.840.1 1.2.100.581 5399 2575 Univers 00:00:00 00:00:00 43556.1.1 350.1.13.10 ity of 3.104.2.7 4.2.7.3.698 [place] .3.196815 084.8 Medica l .8 [place] 2020-07-14 2020-07-14 Orders Doctor 1.2.840.1 [id number] Univers 00:00:00 00:00:00 Only Unassigned, 99744.1.1 ity of [place] 3.104.2.7 [place] .3.419943 Medica l .8 [place] 2020-06-16 2020-06-16 Outpatient R SELF, [facility] [id number] Univers 08:00:00 08:00:00 GADIEL barbosa o f [facility] 2020-06-06 2020-06-06 Telephone East, 1.2.840.1 [id number] [id number] Univers 00:00:00 00:00:00 Santiago 12248.1.1 ity of 3.104.2.7 [place] .3.241928 Medica l .8 Branch 2020-06-04 2020-06-04 Central Scheduler Yohan Cardenasrey 1.2.840.1 [id number] Univers 09:31:58 09:40:12 Visit [facility] 54389.1.1 ity of 3.104.2.7 [place] .3.574205 Medica l .8 Branch 2020-06-04 2020-06-04 Office JOSÉ ANTONIO Cardenas 1.2.612.724 1467 9729 Univers 08:13:41 09:28:[address] [facility] 350..13.10 i ty of CLINICS 4.2.7.2.686 Yomialeshia isreal 535.3583424 [facility] porfirio 089 Branch 2020-06-04 2020-06-04 Outpatient R [facility] [id number] Univers 08:30:00 08:30:00 SANTIAGO ity of [facility] 2020-06-04 2020-06-04 Orders Doctor 1.2.840.6 [id number] 079 Univers 00:00:00 00:00:00 Only Unassigned, 57687.1.1 ity of [place] 3.104.2.7 [place] .3.708446 Medica l .8 Branch 2020-05-19 2020-05-19 Telephone East, 1.2.840.2 [id number] [id number] Univers 00:00:00 00:00:00 Santiago 33913.1.1 ity of 3.104.2.7 [place] .3.982406 Medica l .8 Branch 2020-04-24 2020-04-24 Telephone East, 1.2.840.4 [id number] 05238 Univers 00:00:00 00:00:00 Santiago 11571.1.1 ity of 3.104.2.7 [place] .3.456291 Medica l .8 Branch 2020-04-14 2020-04-14 Outpatient R [facility] [id number] Univers 09:00:00 09:00:00 SANTIAGO barbosa [facility] 2020-04-14 2020-04-14 Telephone East, 1.2.840.5 [id number] 797 [id number] Univers 00:00:00 00:00:00 Santiago 63036.1.1 ity of 3.104.2.7 [place] .3.548596 Medica l .8 [place] 2020-03-31 2020-03-31 Outpatient R EAST, [facility] [id number] Univers 08:30:00 08:30:00 SANTIAGO barbosa [facility] 2020-03-03 2020-03-03 Outpatient R SELF, [facility] [id number] Univers 08:00:00 08:00:00 GADIEL ordas [facility] 2020-03-03 2020-03-03 Outpatient R SELF, [facility] [id number] Univers 08:00:00 08:00:00 GADIEL rodas [facility] 2020-03-03 2020-03-03 Travel 1.2.840.1 1.2.991.362 5355 5480 Univers 00:00:00 00:00:00 25090.1.1 350.1.13.10 ity of 3.104.2.7 4.2.7.3.698 [place] .3.697632 084.8 Medica l .8 [place] 2020-02-06 2020-02-06 Telephone East, 1.2.840.5 [id number] [id number] Univers 00:00:00 00:00:00 Santiago 09725.1.1 ity of 3.104.2.7 [place] .3.674406 Medica l .8 [place] 2020-01-26 2020-01-26 Emergency Caridad, 1.2.840.9 [id number] 779 [id number] Univers 10:03:00 13:05:00 Cynise 88077.1.1 ity of 3.104.2.7 [place] .3.894699 Medica l .8 Branch 2020-01-26 2020-01-26 Travel 1.2.840.1 1.2.457.539 8588 0120 Univers 00:00:00 00:00:00 01354.1.1 350.1.13.10 ity of 3.104.2.7 4.2.7.3.698 [place] .3.907197 084.8 Medica l .8 [place] 2020-01-25 2020-01-25 Outpatient R EAST, [facility] [id number] Univers 08:30:00 08:30:00 SANTIAGO ity of [facility] 2020-01-25 2020-01-25 Telemedici [place], 1.2.840.8 [id number] Univers 07:36:49 08:06:49 ne Visit Santiago 64382.1.1 ity of 3.104.2.7 [place] .3.825990 Medica l .8 [place] 2020-01-16 2020-01-16 Outpatient R EAST, [facility] [id number] Univers 08:00:00 08:00:00 SANTIAGO ity [facility] 2020-01-16 2020-01-16 Telephone East, 1.2.840.3 [id number] Univers 00:00:00 00:00:00 Santiago 25602.1.1 ity of 3.104.2.7 [place] .3.417784 Medica l .8 [place] 2020-01-14 2020-01-14 Outpatient R SELF, [facility] [id number] Univers 08:00:00 08:00:00 GADIEL raheemcharlie o f [facility] 2019-12-31 2019-12-31 Outpatient R SELF, [facility] [id number] Univers 08:45:00 08:45:00 GADIEL barbosa o f [facility] 2019-10-17 2019-10-17 Outpatient R EAST, [facility] [id number] Univers 08:30:00 08:30:00 SANTIAGO ity [facility] 2019-10-12 2019-10-12 Outpatient R EAST, [facility] [id number] Univers 13:00:00 13:00:00 SANTIAGO ity [facility] 2019-10-12 2019-10-12 Telemedici [place], 1.2.840.4 [id number] Univers 07:38:30 08:08:30 ne Visit Santiago 79760.1.1 ity of 3.104.2.7 [place] .3.180632 Medica l .8 [place] 2019-10-08 2019-10-08 Outpatient R SELF, [facility] [id number] Univers 10:15:00 10:15:00 GADIEL ity o f [facility] 2019-10-03 2019-10-03 Jorge Hagen, 1.2.840.6 [id number] Univers 00:00:00 00:00:00 Management Michael Corbin 74496.1.1 i ty of 3.104.2.7 [place] .3.187042 Medica l .8 [place] 2019-09-27 2019-09-27 Telephone East, 1.2.840.7 [id number] [id number] Univers 00:00:00 00:00:00 Santiago 69908.1.1 ity of 3.104.2.7 [place] .3.355854 Medica l .8 [place] 2019-09-04 2019-09-04 Refill East, 1.2.840.6 [id number] Univers 00:00:00 00:00:00 Santiago 23542.1.1 ity of 3.104.2.7 [place] .3.433496 Medica l .8 [place] 2019-07-24 2019-07-24 Outpatient R EAST, [facility] [id number] Univers 08:30:00 08:30:00 SANTIAGO ity [facility] 2019-07-17 2019-07-17 Outpatient R EAST, [facility] [id number] Univers 10:00:00 10:00:00 SANTIAGO ity [facility] 2019-06-15 2019-06-15 Telephone East, 1.2.840.0 [id number] [id number] Univers 00:00:00 00:00:00 Santiago 37539.1.1 ity of 3.104.2.7 [place] .3.325605 Medica l .8 [place] 2019-06-13 2019-06-13 Telephone Team, [facility] 1.2.840.7 [id number] Univers 00:00:00 00:00:00 Health 28014.1.1 ity of [place] 3.104.2.7 [place] .3.921327 Medica l .8 Branch 2019-05-10 2019-05-10 Refill Ronald, 1.2.840.1 [id number] Univers 00:00:00 00:00:00 Santiago 49198.1.1 ity of 3.104.2.7 [place] .3.433952 Medica l .8 Branch 2019-05-09 2019-05-09 Refill Ronald, 1.2.840.1 [id number] Univers 00:00:00 00:00:00 Santiago 92017.1.1 ity of 3.104.2.7 [place] .3.501990 Medica l .8 [place] 2019-04-30 2019-04-30 Outpatient R RODO, [facility] [id number] Univers 10:15:00 10:33:05 GADIEL ity o f [facility] 2019-04-18 2019-04-18 Central Scheduler Santiago Cardenas 1.2.840.1 [id number] Univers 10:00:39 10:44:31 Visit [facility] 52234.1.1 ity of 3.104.2.7 [place] .3.237881 Medica l .8 [place] 2019-04-18 2019-04-18 Outpatient R RONALD [facility] [id number] Univers 10:00:00 10:44:31 SANTIAGO ity of [facility] 2019-04-18 2019-04-18 Office Ronald, 1.2.840.6 [id number] 005 Univers 08:27:44 09:53:27 Visit Santiago 92155.1.1 ity of 3.104.2.7 [place] .3.815758 Medica l .8 [place] 2019-04-18 2019-04-18 Orders Doctor 1.2.840.5 [id number] Univers 00:00:00 00:00:00 Only Unassigned, 73136.1.1 ity of [place] 3.104.2.7 [place] .3.774178 Medica l .8 [place] 2019-04-11 2019-04-11 Refill Ronald, 1.2.840.5 [id number] Univers 00:00:00 00:00:00 Santiago 67494.1.1 ity of 3.104.2.7 [place] .3.706820 Medica l .8 Branch 2019-04-09 2019-04-09 Refill East, 1.2.840.1 [id number] Univers 00:00:00 00:00:00 Santiago 09219.1.1 ity of 3.104.2.7 [place] .3.904701 Medica l .8 Branch 2019-04-03 2019-04-03 Telephone Team, [facility] 1.2.840.0 [id number] Univers 00:00:00 00:00:00 Health 29823.1.1 ity of [place].104.2.7 [place] .3.739074 Medica l .8 Branch 2019-03-27 2019-03-27 Telephone Self, 1.2.840.1 [id number] [id number] Univers 00:00:00 00:00:00 Gadiel 23954.1.1 ity of 3.104.2.7 [place] .3.667232 Medica l .8 Branch 2019-01-17 2019-01-17 Office Ronald, 1.2.840.5 [id number] Univers 07:37:21 10:32:51 Visit Santiago 16266.1.1 ity of 3.104.2.7 [place] .3.445300 Medica l .8 Branch 2019-01-04 2019-01-12 Office Eveline Hansen 1.2.840.6 [id number] Univers 11:19:32 11:08:05 Visit Mariela 52647.1.1 ity of 3.104.2.7 [place] .3.487354 Medica l .8 Branch 2019-01-10 2019-01-10 Telephone Stanislav, 1.2.840.2 [id number] [id number] Univers 00:00:00 00:00:00 Eladio Inman 79555.1.1 ity of 3.104.2.7 [place] .3.260803 Medica l .8 Branch 2018-12-18 2018-12-18 Office Geraldine, 1.2.840.1 [id number] Univers 08:48:45 09:13:43 Visit Leyda 47889.1.1 it y of 3.104.2.7 [place] .3.222619 Medica l .8 Branch 2018-10-30 2018-10-30 Telephone East, 1.2.840.7 [id number] Univers 00:00:00 00:00:00 Santiago 27916.1.1 ity of 3.104.2.7 [place] .3.951514 Medica l .8 Branch 2018-10-23 2018-10-23 Orders Doctor 1.2.840.0 [id number] Univers 00:00:00 00:00:00 Only Unassigned, 07823.1.1 ity of [place] 3.104.2.7 [place] .3.352421 Medica l .8 [place] 2018-10-23 2018-10-23 Nurse Selvin, 1.2.840.0 [id number] Univers 00:00:00 00:00:00 Triage Stefanie 62943.1.1 ity of 3.104.2.7 [place] .3.288496 Medica l .8 Branch 2018-10-23 2018-10-23 Telephone Self, 1.2.840.7 [id number] Univers 00:00:00 00:00:00 Gadiel 14595.1.1 ity of 3.104.2.7 [place] .3.152476 Medica l .8 [place] 2018-10-20 2018-10-20 Telephone Self, 1.2.840.8 [id number] Univers 00:00:00 00:00:00 Gadiel 56608.1.1 ity of 3.104.2.7 [place] .3.393631 Medica l .8 [place] Results Test Description Test Time Test Comments Results Result Comments Source BLOOD CULTURE SCREEN 2022-02-16 06:01:07 Test Item Value Reference Range Interpretation Comme nts Blood Culture-Aerobic (test No organisms isolated No growth Previous preliminary code = 27799-6) verified res ult was Culture In Prog [...] No growth Previous preliminary (test code = 49491-2) verifi ed result was Culture In Prog [...] CDT Lab Interpretation (test Normal code = 48415-4) [id number] 06:01:07 Test Item Value Reference Range Interpretation Comments Blood Culture-Aerobic No organisms No growth Previo us (test code = 80536-1) isolated prelim inary verified result was Culture [...] Culture-Anaerobic isolated preliminar y (test code = 94728-8) verifi ed result was Culture In Progress on 02/11/2022 at 04 CDTPrevious preliminary verified result was No growth a t 24 hours on 02/12/2022 at 05 23 CDTPrevious preliminary verified result was No growth a t 48 hours on 02/13/2022 at 05 23 CDTPrevious preliminary verified result was No growth a t 72 hours on 02/14/2022 at 01 CDT Lab Interpretation Normal (test code = 26438-4) [id number] 10:49:10 Test Item Value Reference Range Interpretation Comments NT-proBNP (test code 2660 pg/mL See_Comment H [Autom ated = 7671204266) message] The system which generated this result transmitted reference range : <=125. The reference range was not used to interpret this result as normal/abnormal . KYLE (test code = KYLE) Biotin has been reported to cause a negative bias, interpret results relative to patient's use of biotin. Lab Interpretation Abnormal (test code = 47838-9) [facility] METABOLIC PANEL (NA, K, CL, CO2, GLUCOSE, BUN, CREATININE, CA)2022-02-15 10:44:07 Test Item Value Reference Range Interpretation Comments NA (test code = 134 mmol/L 135-145 L 4510163180) K (test code = 3.2 mmol/L 3.5-5 L 6947775359) CL (test code = 98 mmol/L 98-108 5849666173) CO2 TOTAL (test code = 27 mmol/L 23-31 5576843921) AGAP (test code = 2-16 2321704568) BUN (test code = 19 mg/dL 7-23 2615870687) GLUCOSE (test code = 102 mg/dL 70-110 1418513162) CREATININE (test code = 0.95 mg/dL 0.5-1.04 4330196671) CALCIUM (test code = 8.5 mg/dL 8.6-10.6 L 0837703698) eGFR (test code = mL/min/1.73m2 0318739801) KYLE (test code = KYLE) Association of [...] tests). Lab Interpretation Abnormal (test code = 38299-7) [facility]22-[facility]-26 10:44:07 Test Item Value Reference Range Interpretation Comments MAGNESIUM (test code = 3283552326) 1.8 mg/dL 1.7-2.4 Lab Interpretation (test code = Normal 53837-4) [facility] WITH [id number] 10:12:06 Test Item Value Reference Range Interpretation [...] RDW-SD (test code = 47.8 fL 39-49.9 67350-6) RDW-CV (test code = 15.2 % 12-15.5 788-0) PLT (test code = See_Comment L [Automated 777-3) message] The sy stem which generated this result transmitted reference range : 166 - 358 10*3/ ?L. The reference r abbey was not used to interpret this result as normal/abnormal . MPV (test code = 8.9 fL 9.5-12.9 L 33001-9) NRBC/100 WBC (test See_Comment [Automat ed code = 8224607871) message] The system which generated this result transmitted reference range : 0.0 - 10.0 /100 WBCs. The refer ence range was not u sed to interpret th is result as normal/abnormal . NRBC x10^3 (test code See_Comment [Auto mated = [id number]) message] The s ystem which generated this result transmitted reference range : 10*3/?L. The reference range was not used to interpret this result as normal/abnormal . GRAN MAT (NEUT) % 65.9 % (test code = 770-8) IMM GRAN % (test code 0.30 % = 3234264334) LYMPH % (test code = 21.0 % 736-9) MONO % (test code = 10.1 % 5905-5) EOS % (test code = 2.4 % 713-8) BASO % (test code = 0.3 % 706-2) GRAN MAT x10^3(ANC) 2.49 10*3/uL 1.88-7.09 (test code = 5396037777) IMM GRAN x10^3 (test 0-0.06 code = 5169953884) LYMPH x10^3 (test code 0.79 10*3/uL 1.32-3.29 L = 731-0) MONO x10^3 (test code 0.38 10*3/uL 0.33-0.92 = 742-7) EOS x10^3 (test code = 0.09 10*3/uL 0.03-0.39 711-2) BASO x10^3 (test code 0.01-0.07 = 704-7) Lab Interpretation Abnormal (test code = 11425-0) [facility] WITH [id number] 11:18:28 Test Item Value Reference Range Interpretation [...] RDW-SD (test code = 49.5 fL 39-49.9 97419-7) RDW-CV (test code = 15.5 % 12-15.5 788-0) PLT (test code = See_Comment L [Automated 777-3) message] The sy stem which generated this result transmitted reference range : 166 - 358 10*3/ ?L. The reference r abbey was not used to interpret this result as normal/abnormal . MPV (test code = 11.4 fL 9.5-12.9 81226-6) IPF % (test code = 8.7 % 1.3-7.7 H Platelet count [id number]) measured by fluorescence method. NRBC/100 WBC (test See_Comment [Automat ed code = 1855197949) message] The system which generated this result transmitted reference range : 0.0 - 10.0 /100 WBCs. The refer ence range was not u sed to interpret th is result as normal/abnormal . NRBC x10^3 (test code See_Comment [Auto mated = 8221431196) message] The s ystem which generated this result transmitted reference range : 10*3/?L. The reference range was not used to interpret this result as normal/abnormal . GRAN MAT (NEUT) % 62.0 % (test code = 770-8) IMM GRAN % (test code 0.80 % = 6326813074) LYMPH % (test code = 22.2 % 736-9) MONO % (test code = 9.6 % 5905-5) EOS % (test code = 5.1 % 713-8) BASO % (test code = 0.3 % 706-2) GRAN MAT x10^3(ANC) 2.21 10*3/uL 1.88-7.09 (test code = 7776306724) IMM GRAN x10^3 (test 0.03 10*3/uL 0-0.06 code = 1450334105) LYMPH x10^3 (test code 0.79 10*3/uL 1.32-3.29 L = 731-0) MONO x10^3 (test code 0.34 10*3/uL 0.33-0.92 = 742-7) EOS x10^3 (test code = 0.18 10*3/uL 0.03-0.39 711-2) BASO x10^3 (test code 0.01-0.07 = 704-7) POLYCHROMASIA (test 2+ See_Comment [Automa arpit code = 55159-1) message] The system which generated this result [...] . Lab Interpretation Abnormal (test code = 56420-7) [facility] (NA, K, CL, CO2, GLUCOSE, BUN, CREATININE, CA)2022-02-13 10:39:07 Test Item Value Reference Range Interpretation Comments NA (test code = 136 mmol/L 135-145 6361580968) K (test code = 4.1 mmol/L 3.5-5 7294256992) CL (test code = 102 mmol/L 98-108 2762967716) CO2 TOTAL (test code = 27 mmol/L 23-31 2759881217) AGAP (test code = 2-16 5381687504) BUN (test code = 22 mg/dL 7-23 8567630219) GLUCOSE (test code = 94 mg/dL 70-110 9472440887) CREATININE (test code = 0.94 mg/dL 0.5-1.04 4771418295) CALCIUM (test code = 8.1 mg/dL 8.6-10.6 L 1941362899) eGFR (test code = mL/min/1.73m2 5481891768) KYLE (test code = KYLE) Association of [...] tests). Lab Interpretation Abnormal (test code = 75680-4) [facility]an[facility] ([facility]E)2022-02-12 01:50:10 Test Item Value Reference Range Interpretation Comments Height (test code = in 5180996373) Weight (test code = lbs 4949459951) Systolic BP (test code mmHg = 4240807320) Diastolic BP (test code mmHg = 9897377897) Heart Rate (test code = bpm 7676304488) BSA (test code = 1.85 m2 1514874756) IVS (test code = 1.22 cm 5007125000) Interventricular Septum 1.22 cm Diastolic Thickness by 2D (test code = 2579421) LVIDD (test code = 5.00 cm 3802980725) Left Ventricular End 117.9 mL Diastolic Volume by Teichholz Method (test code = 8269825) LVPWD (test code = 1.22 cm 1870689549) PW (test code = 1.22 cm 0.6-1.1 9224772151) EF(Teich) (test code = 74.60 % 8864098508) LVIDS (test code = 2.80 cm 7600508140) Left Ventricular End 29.9 mL Systolic Volume by Teichholz Method (test code = 5971475) FS (test code = 44 % 7063545203) EF - 2D (test code = 74.60 % 69894629) LVOT diameter (test 2.16 cm code = 1712697699) LVOT area (test code = 3.70 cm2 9466224814) Ao root diam (test code 3.40 cm = 7791292033) Aortic root (test code 3.4 cm = 9695491658) Ao root annulus (test 3.4 cm code = 9002101481) LA size (test code = 3.4 cm 4276476738) TR Peak Spencer (test code 330.0 cm/s = 4850735577) Triscuspid Valve mmHg Regurgitation Peak Gradient (test code = 1846223277) PV REGURGITATION PEAK mmHg GRADIENT (test code = 1297047338) PI dec slope (test code 137.20 cm/s2 = 3460259520) LAV(MOD-sp4) (test code 102.90 mL = 1357915088) MV Peak E Spencer (test 84.1 cm/s code = 4176521469) MV Peak A Spencer (test 40.1 cm/s code = 3038290761) E/A ratio (test code = ratio 5520290492) MV valve area p 1/2 3.70 cm2 method (test code = 6485384690) MV dec slope (test code 413.00 cm/s2 = 5682310761) MV P1/2t max spencer (test 83.70 cm/s code = 6797256164) MV Prop V (test code = 41.80 cm/s 3314317994) Tapse (test code = 1.83 cm 1182927621) LVOT stroke volume 96.90 cm3 (test code = 8778426895) LVOT peak spencer (test 125.5 cm/s code = 8914619741) LVOT mn grad (test code mmHg = 8414049006) AV LVOT peak gradient mmHg (test code = 4759111530) LVOT peak VTI (test 26.4 cm code = 9707825907) LV V1 mean (test code = 78.10 cm/s 1470780180) Aortic valve mean 103.7 cm/s velocity (test code = 9843536093) Ao peak spencer (test code 165.6 cm/s = 9301291504) Ao VTI (test code = 37.2 cm 3248627515) AV area by cont VTI 2.6 cm2 (test code = 7188617226) AV area peak spencer (test 2.8 cm2 code = 1275917459) Ao max PG (test code = 11.00 mm[Hg] 7311628003) AV peak gradient (test mmHg code = 8450042902) AV valve area (test 2.60 cm2 code = 7567055731) AV mean gradient (test mmHg code = 0995998569) LA Volume Index (BP) 55.2 mL/m2 (test code = 5909672788) LA volume (BP) (test 102.1 mL code = 5091083748) LAV(MOD-sp2) (test code 86.10 mL = 1916493146) A2C EF (test code = 61.20 % 2520687066) EF(sp2-el) (test code = 61.60 % 5439381856) SV(MOD-sp2) (test code 47.10 mL = 3648832746) LV Diastolic Volume 70.7 mL (BP) (test code = 6670089814) A4C EF (test code = 53.00 % 3535054967) EF(MOD-bp) (test code = 56.70 % 6087032594) EF(sp4-el) (test code = 53.90 % 4898022085) LV Systolic Volume (BP) 30.6 mL (test code = 1469929680) SV(MOD-bp) (test code = 40.10 mL 9511920833) SV(MOD-sp4) (test code 32.40 mL = 1614744268) SV(sp4-el) (test code = 33.10 mL 8181608623) EF (test code = 9279563667) Left Ventricular Stroke 40.1 mL Volume by 2-D Biplane-MOD (test code = 4978625) LV Diastolic Volume 38.2 mL/m2 Index (BP) (test code = 8817329997) LV Systolic Volume 16.5 mL/m2 Index (BP) (test code = 5663114501) Radiology Study observation (narrative) (test code = 38645-7) KYLE (test code = KYLE) ?Left?Ventricle: Left [...] 1.00The left ventricular wall motion is normal. [facility] WorthTROPONIN A8546-39-03 05:45:01 Test Item Value Reference Interpretation Comments Range TROPONIN I (test See_Comment [Automated code = 8403173485) message] The system which generated this result [...] biotin. Lab Interpretation Normal (test code = 60647-6) [facility] Worth[facility]-TERMINAL VWB-WJB5126-21-22 05:41:40 Test Item Value Reference Range Interpretation Comments NT-proBNP (test code 4250 pg/mL See_Comment H [Autom ated = 9746193483) message] The system which generated this result transmitted reference range : <=125. The reference range was not used to interpret this result as normal/abnormal . KYLE (test code = KYLE) Biotin has been reported to cause a negative bias, interpret results relative to patient's use of biotin. Lab Interpretation Abnormal (test code = 03983-7) [facility] WorthACTIVATED PARTIAL THRMPLAS EFW4502-60-02 05:35:21 Test Item Value Reference Range Interpretation Comments APTT Patient (test See_Comment [Automat ed code = 3173-2) message] The system which generated this result transmitted reference range : 23 - 38 Seconds . The reference range was not used to interpr et this result as normal/abnormal . KYLE (test code = KYLE) The [facility] patient population mean normal value for aPTT is 30 seconds. Lab Interpretation Normal (test code = 70263-0) [facility] WorthPROTHROMBIN TIME / [id number] 05:33:21 Test Item Value Reference Range Interpretation [...] tions. Lab Interpretation (test Normal code = 78714-0) [facility] WorthCOMP. METABOLIC PANEL (32011)2022-02-11 05:33:21 Test Item Value Reference Range Interpretation Comments NA (test code = 137 mmol/L 135-145 3074631677) K (test code = 4.3 mmol/L 3.5-5 4265301715) CL (test code = 103 mmol/L 98-108 7712761486) CO2 TOTAL (test code = 25 mmol/L 23-31 9158789522) AGAP (test code = 2-16 4311038060) BUN (test code = 19 mg/dL 7-23 5102004293) GLUCOSE (test code = 120 mg/dL 70-110 H 1338766249) CREATININE (test code = 1.15 mg/dL 0.5-1.04 H 9675997339) TOTAL BILI (test code = 0.9 mg/dL 0.1-1.6 1545720807) CALCIUM (test code = 8.9 mg/dL 8.6-10.6 2397318930) T PROTEIN (test code = 6.6 g/dL 6.3-8.2 1645144798) ALBUMIN (test code = 4.0 g/dL 3.5-5 1028463146) ALK PHOS (test code = 73 U/L 34-122 4310807084) ALTv (test code = 18 U/L 5-35 1742-6) AST(SGOT) (test code = 31 U/L 13-40 1814130913) eGFR (test code = mL/min/1.73m2 2421018316) KYLE (test code = KYLE) Association of [...] tests). Lab Interpretation Abnormal (test code = 59841-8) [facility] WITH [id number] 05:14:37 Test Item Value Reference Range Interpretation [...] RDW-SD (test code = 47.9 fL 39-49.9 51088-7) RDW-CV (test code = 14.9 % 12-15.5 788-0) PLT (test code = See_Comment L [Automated 777-3) message] The sy stem which generated this result transmitted reference range : 166 - 358 10*3/ ?L. The reference r abbey was not used to interpret this result as normal/abnormal . MPV (test code = 9.1 fL 9.5-12.9 L 59100-9) NRBC/100 WBC (test See_Comment [Automat ed code = 6842129610) message] The system which generated this result transmitted reference range : 0.0 - 10.0 /100 WBCs. The refer ence range was not u sed to interpret th is result as normal/abnormal . NRBC x10^3 (test code See_Comment [Auto mated = 4208861891) message] The s ystem which generated this result transmitted reference range : 10*3/?L. The reference range was not used to interpret this result as normal/abnormal . GRAN MAT (NEUT) % 78.5 % (test code = 770-8) IMM GRAN % (test code 0.20 % = 3069553025) LYMPH % (test code = 11.6 % 736-9) MONO % (test code = 8.4 % 5905-5) EOS % (test code = 1.1 % 713-8) BASO % (test code = 0.2 % 706-2) GRAN MAT x10^3(ANC) 3.45 10*3/uL 1.88-7.09 (test code = 3578276592) IMM GRAN x10^3 (test 0-0.06 code = 5378956923) LYMPH x10^3 (test code 0.51 10*3/uL 1.32-3.29 L = 731-0) MONO x10^3 (test code 0.37 10*3/uL 0.33-0.92 = 742-7) EOS x10^3 (test code = 0.05 10*3/uL 0.03-0.39 711-2) BASO x10^3 (test code 0.01-0.07 = 704-7) Lab Interpretation Abnormal (test code = 17350-7) General acute hospital Coronavirus 2019 Walaawc9792-84-08 18:08:00 Test Item Value Reference Range Interpretation [...] det ection of nucleic acids f rom ewlRXHL-StD-8 v irus and diagnosis of SA RS-CoV-2 virusinfection. It is an Emergency Use Authorization ( EUA) testauthorized by the U.S. FDA. BASIC METABOLIC NGMIH9722-08-68 09:37:00 Test Item Value Reference Range Interpretation [...] = 9.0 mg/dL 8.0-10.5 N CA) PROTHROMBIN ZVRU8513-79-11 09:32:00 Test Item Value Reference Range Interpretation [...] (to prevent recurrent infar ct). 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 [facility] - XR CHEST 1 A8279-21-33 [facility] 1955 Sex: F FAX: Carmenza Kelly DO [phone] [place]: St: ADM FAX: Mike Scales MD [phone] FAX: Bahman Chopra [phone] Name: LIO WATTS [facility] [place] : 1955 Age/S: 66/F [address] [place] [address] Unit #: [id number] Loc: [place] [address] Phys: Bahman Chopra Acct: [id number] Dis Date: Status: ADM IN PHONE #: [phone] Exam Date: 06/17/2021 1320 FAX #: [phone] Reason: WATCHMAN EXAMS: CPT CODE: [id number] XR CHEST 1 V 92934 PROCEDURE INFORMATION: Exam: XR Chest Exam date [...] and signed by: Lambert Vega M.D. CC: [facility] Francisco Rahman DO; Mike Lund MD; Bahman Chopra Technologist: RT Taylor(R) Trnprrd Date/Time/By: 06/17/2021 (8307) : By: [email or web address] Orig Print D/T: S: 06/17/2021 (9898) PAGE 1 Signed ReportCOVID 19 Asymptomatic IH [...] high or waivedcomplexit y tests. BASIC METABOLIC YDSED3172-78-93 11:37:00 Test Item Value Reference Range Interpretation [...] code = 9.0 mg/dL 8.0-10.5 N CA) CQMASPFRFU1777-26-29 11:37:00 Test Item Value Reference Range Interpretation Comments PREALBUMIN (test code = PREALB) 24.3 mg/dL 16.0-40.0 N PROTHROMBIN OFRI9745-59-80 11:03:00 Test Item Value Reference Range Interpretation [...] (to prevent recurrent infar ct). CBC W/AUTO SQRH6480-22-57 10:59:00 Test Item Value Reference Range Interpretation [...] 3/uL 0.0-0.1 N NRBC#) - CHEST 2 Q5089-59-41 [facility]:00[facility] 1955 Sex: F FAX: Carmenza Kelly DO [phone] [place]: St: PRE FAX: Mike Scales MD [phone] Name: LIO WATTS [facility] : 1955 Age/S: 66/F [address] [place] [address] Unit #: [id number] Loc: [place] [address] Phys: Mike Lund MD Acct: [id number] Dis Date: Status: PRE SDC PHONE #: [phone] Exam Date: 06/16/2021 1120 FAX #: [phone] Reason: PREOP EXAMS: CPT CODE: [id number] XR CHEST 2 V 19014 PROCEDURE INFORMATION: Exam: XR Chest Exam date [...] Technologist: Danielle Nix RT(R) Trnscrd Date/Time/By: 06/16/2021 (1134) : By: [email or web address] Orig Print D/T: S: 06/16/2021 (5190) PAGE 1 Signed ReportGastrointestinal esltr5746-24-73 04:35:05 Test Item Value Reference Interpretation Comments [...] Rotavirus PCR (test Not Detected code = 6045688) Salmonella PCR (test Not Detected code = [...] PCR Not Detected (test code = 7124) [facility] aanhnir3590-30-95 19:30:47 Test Item Value Reference Range Interpretation Comments Case number (test [id number] code = 7826758) Surgical pathology See link below for PDF report (test code = Lab Report 2255) Result status (test This is Supplemental code = 3720080) Report for [id number] [facility] CenterUsunmrdnHRHLAVPSQK6000-98-73 16:31:00 Test Item Value Reference Range Interpretation Comments POC Activated Clotting Time (test code 153 s = POC Activated Clotting Time) [facility] CenterVhndsbiBEFHURWWAD0929-57-92 16:31:00 Test Item Value Reference Range Interpretation Comments POC Activated Clotting Time (test code 153 s = POC Activated Clotting Time) [facility] CenterLkkppzuUIWUHYHOOB3015-28-04 16:31:00 Test Item Value Reference Range Interpretation Comments POC Activated Clotting Time (test code 153 s = POC Activated Clotting Time) [facility] CenterOowqsvcJJJKIWTVHX0037-09-78 16:31:00 Test Item Value Reference Range Interpretation Comments POC Activated Clotting Time (test code 153 s = POC Activated Clotting Time) [facility] CenterLhplabcFINZAVPBSI3176-24-13 16:31:00 Test Item Value Reference Range Interpretation Comments POC Activated Clotting Time (test code 153 s = POC Activated Clotting Time) [place] 099291-04-09 16:31:00 Test Item Value Reference Range Interpretation Comments POC Activated Clotting Time (test code 153 s = POC Activated Clotting Time) [facility] CenterTttxwwxIUDZRFURIK7880-30-11 16:31:00 Test Item Value Reference Range Interpretation Comments POC Activated Clotting Time (test code 153 s = POC Activated Clotting Time) [facility] CenterValejlvGMMPDDFNOP9370-43-10 14:37:00 Test Item Value Reference Range Interpretation Comments POC Activated Clotting Time (test code 454 s = POC Activated Clotting Time) [facility] CenterMjdtvrkOOWBXXCIKZ7884-59-92 14:37:00 Test Item Value Reference Range Interpretation Comments POC Activated Clotting Time (test code 454 s = POC Activated Clotting Time) [facility] CenterAgnonrfKWDMAMJCRJ0127-35-62 14:37:00 Test Item Value Reference Range Interpretation Comments POC Activated Clotting Time (test code 454 s = POC Activated Clotting Time) [facility] CenterRgjppvsWGBLQEACFJ1882-05-05 14:37:00 Test Item Value Reference Range Interpretation Comments POC Activated Clotting Time (test code 454 s = POC Activated Clotting Time) [facility] CenterHzymkduWPILJAHVWL8239-23-00 14:37:00 Test Item Value Reference Range Interpretation Comments POC Activated Clotting Time (test code 454 s = POC Activated Clotting Time) [facility] CenterShafzovDJXHOCBJUY2354-39-22 14:37:00 Test Item Value Reference Range Interpretation Comments POC Activated Clotting Time (test code 454 s = POC Activated Clotting Time) [facility] CenterVqtddblGRCVRUHBJA3578-87-00 14:37:00 Test Item Value Reference Range Interpretation Comments POC Activated Clotting Time (test code 454 s = POC Activated Clotting Time) [facility] CenterTslzrfcCDEUYMSGSQ2155-09-11 14:13:00 Test Item Value Reference Range Interpretation Comments POC Activated Clotting Time (test code 354 s = POC Activated Clotting Time) [facility] CenterYnxyoxuMKIDQYQYFS8048-97-00 14:13:00 Test Item Value Reference Range Interpretation Comments POC Activated Clotting Time (test code 354 s = POC Activated Clotting Time) [facility] CenterYmhmwqsFWIRYVOHBP1841-80-42 14:13:00 Test Item Value Reference Range Interpretation Comments POC Activated Clotting Time (test code 354 s = POC Activated Clotting Time) [facility] CenterTtdtfvdVTMQANHOEG8374-26-22 14:13:00 Test Item Value Reference Range Interpretation Comments POC Activated Clotting Time (test code 354 s = POC Activated Clotting Time) [facility] CenterOevcuerOQGYUTMCWD6008-96-28 14:13:00 Test Item Value Reference Range Interpretation Comments POC Activated Clotting Time (test code 354 s = POC Activated Clotting Time) [facility] CenterHgusupyKFAJGJWSQM4703-37-14 14:13:00 Test Item Value Reference Range Interpretation Comments POC Activated Clotting Time (test code 354 s = POC Activated Clotting Time) [facility] CenterCnyojcyCRHERGRAXW5321-17-66 14:13:00 Test Item Value Reference Range Interpretation Comments POC Activated Clotting Time (test code 354 s = POC Activated Clotting Time) [facility] GECBQFS1223-89-98 10:37:00Negative (08/29/20 5:37 AM) [facility] TylerannCHEM YIUNR8367-75-40 10:37:58377Qopnehem HermannCHEM PANEL 2020-08-29 10:37:0028[facility] HermannCHEM TQMOI5172-34-76 10:37:001.01[facility] HermannCHEM VHHEE3992-05-26 10:37:50200Kbcufjxo HermannCHEM ZDSVO3956-23-24 10:37:003.8[facility] HermannCHEM RJQDF7354-17-40 10:37:98184Ydininou HermannCHEM MEHWK8143-28-22 10:37:0028[facility] HermannCHEM KNSDH3000-02-17 10:37:009.8 [facility] HermannCHEM UJNJC5861-07-41 10:37:0011.8[facility] HermannCHEM PANEL 2020-08-29 10:37:0059[facility] HermannCHEM FHMPU1259-14-27 10:37:002.9[facility] NsblbyqLNVFBAYQUX7660-04-16 10:37:006.8[facility] CjepemeCECAMUDLNS1462-23-82 10:37:004.47[facility] OknqfawRWSPLEDWUE1082-40-61 10:37:0010.6[facility] CYSJTEZGNA6668-19-55 10:37:0034.0[facility] BsjusecHITLRLKXEA8807-94-67 10:37:00 76.1[facility] MrbgkzeSISLVJURIT4666-82-29 10:37:00 Test Item Value Reference Range Interpretation Comments MCH (test code = MCH) 23.8 pg 27.0-31.0 [facility] ErzkhhbULZQKCDYHJ1802-44-78 10:37:0031.3[facility] HermannHEMATOLOGY 2020-08-29 10:37:0018.2[facility] GzltdsrNPKFOXECRE1023-14-66 10:37:13254Gpxlicil NdgrddcABJNDGPBDH3549-32-31 10:37:007.5[facility] KxcdyutIRJGMCMGKP8958-19-18 10:37:00 Test Item Value Reference Range Interpretation Comments PT (test code = PT) 12.8 s 12.0-14.7 [facility] ZhexzyaCKHQLOPVUK0269-86-07 10:37:00 Test Item Value Reference Range Interpretation Comments INR (test code = INR) 0.97 1 0.85-1.17 [facility] IxiadzcTGZNTZBCYA2486-42-45 10:37:00 Test Item Value Reference Range Interpretation Comments PTT (test code = PTT) 25.0 s 22.9-35.8 [facility] YapxxxdYBJHFAXFEK6416-65-16 10:37:0070.5[facility] HermannHEMATOLOGY 2020-08-29 10:37:0018.8[facility] SagvrllBWJVNTEEEI2000-77-16 10:37:009.5[facility] YnzmhjuMNJBFBXTAX7786-41-18 10:37:000.9[facility] XkmvwfaNCKYQPPMAU4775-45-81 10:37:000.3[facility] CzzecuvSEQHMKMUQM4053-92-35 10:37:004.8[facility] QIVZTXMIZI5263-91-33 10:37:001.3[facility] XipceflALOZRKWMUO0419-74-22 10:37:000.6 [facility] VyuivryOLXDUQBCIL7100-55-88 10:37:000.1[facility] HermannHEMATOLOGY 2020-08-29 10:37:001+ *ABN*(08/29/20 5:37 AM)[facility] YyzsxohTGXQKLKBVQ1544-57-45 10:37:00Not Detected (08/29/20 5:37 AM)[facility] HermannBLOOD BANK RESULTS 2020-08-29 10:37:00Negative (08/29/20 5:37 AM)[facility] HermannCHEM UQPSO0160-62-78 10:37:93646Bdqcqbfv HermannCHEM DHLXT5756-10-12 10:37:0028[facility] HermannCHEM LJWBA8827-05-15 10:37:001.01[facility] HermannCHEM KCDMI4040-52-47 10:37:18305 [facility] HermannCHEM HNPBY7788-08-11 10:37:003.8[facility] HermannCHEM PANEL 2020-08-29 10:37:29533Izunrtko HermannCHEM CBMEY2493-26-18 10:37:0028[facility] HermannCHEM RZXAI1734-29-55 10:37:009.8[facility] HermannCHEM CIKZI2704-60-94 10:37:0011.8[facility] HermannCHEM ILLFR1333-37-06 10:37:0059[facility] HermannCHEM BKZSO4082-60-87 10:37:002.9[facility] XzdnvdwIHJPMPXRHT1172-87-40 10:37:006.8 [facility] FsezudoTREIBONAPL4513-29-66 10:37:004.47[facility] HermannHEMATOLOGY 2020-08-29 10:37:0010.6[facility] IrdejdwQEVTBMGSPN1295-36-73 10:37:0034.0[facility] OlrqeazASAVTHNSGY4376-23-40 10:37:0076.1[facility] CvroqlnPOEGTYKKCJ9061-86-81 10:37:00 Test Item Value Reference Range Interpretation Comments MCH (test code = MCH) 23.8 pg 27.0-31.0 [facility] CzetiqfJTRNTHZITC7929-96-21 10:37:0031.3[facility] HermannHEMATOLOGY 2020-08-29 10:37:0018.2[facility] PpobhrfBJTVAWUWHK6505-68-39 10:37:59741Jchclxja SmnibyaRMQEMANUTO0771-07-16 10:37:007.5[facility] GturamtLPERDAGKOK8770-74-45 10:37:00 Test Item Value Reference Range Interpretation Comments PT (test code = PT) 12.8 s 12.0-14.7 [facility] UhqmzekODIKJRKOHR8989-07-64 10:37:00 Test Item Value Reference Range Interpretation Comments INR (test code = INR) 0.97 1 0.85-1.17 [facility] RqmtwrvQKTXMKSXPD0610-35-13 10:37:00 Test Item Value Reference Range Interpretation Comments PTT (test code = PTT) 25.0 s 22.9-35.8 [facility] YclytgaTMFEYVSLIX8807-84-81 10:37:0070.5[facility] HermannHEMATOLOGY 2020-08-29 10:37:0018.8[facility] RjfwmbnZUQPYZWSNV8991-15-59 10:37:009.5[facility] LofwmpqPRRQVEMRGA8299-61-85 10:37:000.9[facility] NdgkzonQKVQSCMQFR4946-92-88 10:37:000.3[facility] YzgcmjlJIHCVHGACS6016-61-90 10:37:004.8[facility] UXCAQSAFTG8309-59-86 10:37:001.3[facility] NgyibwvBGFSNHXAAH0759-65-79 10:37:000.6 [facility] LwimyzuZFHJVMTYPG2183-63-74 10:37:000.1[facility] HermannHEMATOLOGY 2020-08-29 10:37:001+ *ABN*(08/29/20 5:37 AM)[facility] VrgiexmCLWNWEBYPG2973-62-29 10:37:00Not Detected (08/29/20 5:37 AM)[facility] HermannBLOOD BANK RESULTS 2020-08-29 10:37:00Negative (08/29/20 5:37 AM)[facility] HermannCHEM BFNOF9387-71-72 10:37:92054Voxlorrm HermannCHEM GGVGN6463-27-71 10:37:0028[facility] HermannCHEM XHDLS8871-23-65 10:37:001.01[facility] HermannCHEM KMYME0941-61-73 10:37:82342 [facility] HermannCHEM ZDUMC4751-57-84 10:37:003.8[facility] HermannCHEM PANEL 2020-08-29 10:37:58974Zggcnppv HermannCHEM IBAZA8547-85-88 10:37:0028[facility] HermannCHEM FKNNA4957-37-84 10:37:009.8[facility] HermannCHEM KXYZL8364-34-59 10:37:0011.8[facility] HermannCHEM KMKQA7161-30-95 10:37:0059[facility] HermannCHEM XJJCF6505-85-31 10:37:002.9[facility] RvuxadnZHNZOPTKMX1583-56-09 10:37:006.8 [facility] UeamtpyNLHVTLVXOI7527-30-24 10:37:004.47[facility] HermannHEMATOLOGY 2020-08-29 10:37:0010.6[facility] SgmhvsaQQASQZEZIE6365-75-99 10:37:0034.0[facility] GeasvkbBJNQTKGBLM1223-39-44 10:37:0076.1[facility] JzlrafxMFRRWVXMYK4645-00-82 10:37:00 Test Item Value Reference Range Interpretation Comments MCH (test code = MCH) 23.8 pg 27.0-31.0 [facility] XdouhdzISCOHTIOMX7646-44-02 10:37:0031.3[facility] HermannHEMATOLOGY 2020-08-29 10:37:0018.2[facility] SlxyqoxTQANMEYSBC8885-13-00 10:37:89073Uyxvfbmw BowqaskIGJDAIQEKY7237-52-96 10:37:007.5[facility] MmuxnmgQAYHXDWSTO4652-08-46 10:37:00 Test Item Value Reference Range Interpretation Comments PT (test code = PT) 12.8 s 12.0-14.7 [facility] CyzsuioLRWYWQNVBP3512-83-27 10:37:00 Test Item Value Reference Range Interpretation Comments INR (test code = INR) 0.97 1 0.85-1.17 [facility] HcfxxxpYPSOFAFEIN1805-02-73 10:37:00 Test Item Value Reference Range Interpretation Comments PTT (test code = PTT) 25.0 s 22.9-35.8 [facility] SqadrbwKNMURVDUXK7226-51-91 10:37:0070.5[facility] HermannHEMATOLOGY 2020-08-29 10:37:0018.8[facility] OuuzfngJPPBMNIATN8932-57-03 10:37:009.5[facility] DuzomwpDYVQHPNYMR3422-22-08 10:37:000.9[facility] LkycpexYUHFCGSFBV8948-61-48 10:37:000.3[facility] PbhkmccDBJVVJLFJC9915-36-57 10:37:004.8[facility] QBQXXZOGUS4443-17-18 10:37:001.3[facility] JqqbgjeYSCMAOSYDH6318-43-72 10:37:000.6 [facility] ScaqpgvFPEOMVJWFE4013-28-87 10:37:000.1[facility]annHEMATOLOGY 2020-08-29 10:37:001+ *ABN*(08/29/20 5:37 AM)[facility] HupsdhtGRNDWPIAYH8155-77-22 10:37:00Not Detected (08/29/20 5:37 AM)[facility]annBL[facility] B[facility] RESULTS 2020-08-29 10:37:00Negative (08/29/20 5:37 AM)[facility]annCHEM SUYWM7225-64-12 10:37:49018Lqjueopi HermannCHEM SKDKJ7226-76-81 10:37:0028[facility]annCHEM MPVSO2022-26-20 10:37:001.01[facility] HermannCHEM QSNDX5578-10-27 10:37:38690 [facility]annCHEM DUGPQ2171-95-46 10:37:003.8[facility]annCHEM PANEL 2020-08-29 10:37:07682Cbxnmywx HermannCHEM NLFMZ4392-17-57 10:37:0028[facility]annCHEM OFKPO5587-61-04 10:37:009.8[facility]annCHEM CZFGE5649-12-96 10:37:0011.8[facility]annCHEM RSDTV8701-07-50 10:37:0059[facility]annCHEM PHCZH7241-98-93 10:37:002.9[facility] FzhgaezWUQTAIFFPP5679-44-92 10:37:006.8 [facility] SsixsiwBJJRCDARZN1809-60-36 10:37:004.47[facility]annHEMATOLOGY 2020-08-29 10:37:0010.6[facility] YsiheekALPOARNWCQ2231-71-37 10:37:0034.0[facility] OkobvwtOAEMXWDUUC3489-04-94 10:37:0076.1[facility] FawmcftRVRCFNJNWN3044-24-06 10:37:00 Test Item Value Reference Range Interpretation Comments MCH (test code = MCH) 23.8 pg 27.0-31.0 [facility] CfafsbeULBYMDEIMW0570-88-00 10:37:0031.3[facility]annHEMATOLOGY 2020-08-29 10:37:0018.2[facility] CadvctjGQFTXHRCHC4125-38-12 10:37:16055Djrfceeg NwayuecNPWHWQCZUO6174-29-45 10:37:007.5[facility] XjtdudbFKJOYYLIJX8370-71-87 10:37:00 Test Item Value Reference Range Interpretation Comments PT (test code = PT) 12.8 s 12.0-14.7 [facility] SyvsswuAIBGRRBLTN5762-56-49 10:37:00 Test Item Value Reference Range Interpretation Comments INR (test code = INR) 0.97 1 0.85-1.17 [facility] BxsthfiKTGELVYBEB2904-77-03 10:37:00 Test Item Value Reference Range Interpretation Comments PTT (test code = PTT) 25.0 s 22.9-35.8 [facility] XnxcuvrGQOGMDHVGU6700-81-32 10:37:0070.5[facility] 2020-[facility]-29 10:37:0018.8[facility] HgyuixaKSYGLWJVAS1662-50-84 10:37:009.5[facility] ZippphqSEFIYDVOSF5201-32-62 10:37:000.9[facility] WzdekxaICGVTTHKND7618-73-70 10:37:000.3[facility] TssdyotKZURHCJUWR7080-36-96 10:37:004.8[facility] BNIAXGJGFE4472-59-54 10:37:001.3[facility] WyipzllWDSOECPOEI7576-38-13 10:37:000.6 [facility] QqdxedkGYVQKIAWQF2019-11-94 10:37:000.1[facility]annHEMATOLOGY 2020-08-29 10:37:001+ *ABN*(08/29/20 5:37 AM)[facility] UrepqvqWPHXHXBXYQ9130-72-99 10:37:00Not Detected (08/29/20 5:37 AM)[facility]ann[facility] RESULTS 2020-08-29 10:37:00Negative (08/29/20 5:37 AM)[facility]annCHEM MBYMY9132-06-97 10:37:27449Hhvxygqp HermannCHEM QRXSD4135-05-61 10:37:0028[facility]annCHEM TAIRC4386-30-08 10:37:001.01[facility]annCHEM MTYSK6386-94-09 10:37:98386 [facility]annCHE[facility] SUWOW3196-53-95 10:37:003.8[facility]annCHEM PANEL 2020-08-29 10:37:85432Kqnrzcqs HermannCHEM VHFIA8639-59-76 10:37:0028[facility]annCHEM AZILW1374-96-84 10:37:009.8[facility]annCHE[facility] XVKGJ8617-24-19 10:37:0011.8[facility]annCHEM NUXLZ3634-08-18 10:37:0059[facility]annCHE[facility] YKNCV3934-46-34 10:37:002.9[facility] JquwdvaWIUGBJTEKH7501-83-16 10:37:006.8 [facility] RjgugqnIQWWATFQHC1475-59-95 10:37:004.47[facility]annHEMATOLOGY 2020-08-29 10:37:0010.6[facility] DqbintzRHAJSHPZGM5269-94-62 10:37:0034.0[facility] XkabjinEOPNUWNDHP0004-12-79 10:37:0076.1[facility] TfexujnESWSXOZCPT0750-66-36 10:37:00 Test Item Value Reference Range Interpretation Comments MCH (test code = MCH) 23.8 pg 27.0-31.0 [facility] NbsddwtUSAMFRQVNB3183-51-70 10:37:0031.3[facility]annHEMATOLOGY 2020-08-29 10:37:0018.2[facility] IsqzcdfICZFSEFLWP9526-24-45 10:37:96946Ipiadhpa BnavhekKQFTAPQXIZ4304-26-92 10:37:007.5[facility] UhkewpuWMDWFANQYF6294-10-69 10:37:00 Test Item Value Reference Range Interpretation Comments PT (test code = PT) 12.8 s 12.0-14.7 [facility] KwyloguCOXIDDSHVF2690-48-28 10:37:00 Test Item Value Reference Range Interpretation Comments INR (test code = INR) 0.97 1 0.85-1.17 [facility] XjrbswhHXQEUAKTLC0796-32-67 10:37:00 Test Item Value Reference Range Interpretation Comments PTT (test code = PTT) 25.0 s 22.9-35.8 [facility] SzkwnaeUBGAWAFDRD1829-85-32 10:37:0070.5[facility]annHEMATOLOGY 2020-08-29 10:37:0018.8[facility] HvmtovaDDKEGKPTJU9228-91-96 10:37:009.5[facility] GqflwosDHNYYUEQRO8553-95-50 10:37:000.9[facility] AzsklumLSSLBYEVCV8638-80-11 10:37:000.3[facility] ZfgoeitURHDEOOJSP6205-58-98 10:37:004.8[facility] LAOKGWQBYM1768-34-68 10:37:001.3[facility] FhuhrzbYEVMLCSWIQ2854-09-38 10:37:000.6 [facility] AkiklphPLKVCEXMIF3472-55-79 10:37:000.1[facility]annHEMATOLOGY 2020-08-29 10:37:001+ *ABN*(08/29/20 5:37 AM)[facility] NfgkfwoDRBJPNSRVG8277-03-08 10:37:00Not Detected (08/29/20 5:37 AM)[facility]annBLOOD BANK RESULTS 2020-08-29 10:37:00Negative (08/29/20 5:37 AM)[facility]annCHEM UDMSW6203-76-60 10:37:43211Mikqklqj HermannCHEM WLFRE9472-53-56 10:37:0028[facility]annCHEM RWYAW1065-70-83 10:37:001.01[facility]annCHEM CBQKA2111-30-60 10:37:02627 [facility]annCHE[facility] UJNUX7923-22-28 10:37:003.8[facility]annCHEM PANEL 2020-08-29 10:37:91643Rkttubzv HermannCHEM CGHCE8327-44-81 10:37:0028[facility]annCHEM RFGOR2948-06-73 10:37:009.8[facility]annCHEM HLOPL9430-07-88 10:37:0011.8[facility]annCHEM LKNFP7400-29-83 10:37:0059[facility]annCHEM NSDLJ7125-68-87 10:37:002.9[facility] LfjjiqnRWFSSCOMDR6362-48-64 10:37:006.8 [facility] ChqdrfkZDDBATVTZB6398-95-51 10:37:004.47[facility]annHEMATOLOGY 2020-08-29 10:37:0010.6[facility] QjeoosnEAGUZROXNJ2887-74-63 10:37:0034.0[facility] BpiiftwYCSFEBXNSJ6065-33-79 10:37:0076.1[facility] TkbmepjDKXNDNQXAD5128-41-35 10:37:00 Test Item Value Reference Range Interpretation Comments MCH (test code = MCH) 23.8 pg 27.0-31.0 [facility] GytxnqqWQZEUZUURQ0041-49-43 10:37:0031.3[facility]annHEMATOLOGY 2020-08-29 10:37:0018.2[facility] VblrcwhJCBQUFJCRV4372-07-43 10:37:60175Lwoiyuyd LpzmegoTNGKHZFVDL3429-17-12 10:37:007.5[facility] WaemsspXTMZLXAPWD9837-38-49 10:37:00 Test Item Value Reference Range Interpretation Comments PT (test code = PT) 12.8 s 12.0-14.7 [facility] PdlbmcvUDOJUXAQXA2095-70-02 10:37:00 Test Item Value Reference Range Interpretation Comments INR (test code = INR) 0.97 1 0.85-1.17 [facility] QpxxrbfTZAVBPJPFP7441-86-54 10:37:00 Test Item Value Reference Range Interpretation Comments PTT (test code = PTT) 25.0 s 22.9-35.8 [facility] LkpixnzZZTSJPBRGB8124-61-25 10:37:0070.5[facility]annHEMATOLOGY 2020-08-29 10:37:0018.8[facility] RfintnlCDNBFDJAJZ7607-57-16 10:37:009.5[facility] HjykbtjYWAGFMCFYV9203-68-89 10:37:000.9[facility] YxhcumaYXANALPZAQ0494-09-45 10:37:000.3[facility] MxxmhenFCTHHOOQSP8409-57-83 10:37:004.8[facility] RIAWDJDYRM2312-97-53 10:37:001.3[facility] YslhauzODGDYYNBMD2070-99-80 10:37:000.6 [facility] SukawjaHVDWAHCOAB4082-88-31 10:37:000.1[facility]annHEMATOLOGY 2020-08-29 10:37:001+ *ABN*(08/29/20 5:37 AM)[facility] EnvreyjAYQFDHOHPZ0896-01-26 10:37:00Not Detected (08/29/20 5:37 AM)[facility]annBLOOD BANK RESULTS 2020-08-29 10:37:00Negative (08/29/20 5:37 AM)[facility]annCHEM EZXKK5469-81-75 10:37:06082Sovcpmli HermannCHEM KJRUQ6180-23-33 10:37:0028[facility]annCHEM UPETY2940-57-70 10:37:001.01[facility]annCHEM OJKXM7093-96-91 10:37:19460 [facility]annCHE[facility] CNQDE6733-60-11 10:37:003.8[facility]annCHEM PANEL 2020-08-29 10:37:49031Fteajwyu HermannCHEM RLGOD4759-34-55 10:37:0028[facility]annCHEM JJVWM0943-84-72 10:37:009.8[facility]annCHEM ARPPF2890-80-91 10:37:0011.8[facility] HermannCHEM XVXEE3502-19-02 10:37:0059[facility]annCHEM CQDDO9869-49-20 10:37:002.9[facility] AcbciswMDCJMDFZEJ9792-80-71 10:37:006.8 [facility] JytqtudESKTCFUDIB9076-28-32 10:37:004.47[facility]annHEMATOLOGY 2020-08-29 10:37:0010.6[facility] WbspzdzOIHTBIEWAJ7057-46-92 10:37:0034.0[facility] LfrkhxzBFSSYPQNYX7516-39-61 10:37:0076.1[facility] ZhxtgvhSWIFONDLEX2069-13-39 10:37:00 Test Item Value Reference Range Interpretation Comments MCH (test code = MCH) 23.8 pg 27.0-31.0 [facility] ZuszlibCIJRFSAMLM3994-35-36 10:37:0031.3[facility]annHEMATOLOGY 2020-08-29 10:37:0018.2[facility] VghwecmDJAXASHIEG3192-34-19 10:37:60723Kgzzewro PwuzileLFGACUVSVZ3109-76-93 10:37:007.5[facility] CluopwwQHZWOGDRLA3172-25-27 10:37:00 Test Item Value Reference Range Interpretation Comments PT (test code = PT) 12.8 s 12.0-14.7 [facility] TghotzcLTVXDODIKP4752-00-56 10:37:00 Test Item Value Reference Range Interpretation Comments INR (test code = INR) 0.97 1 0.85-1.17 [facility] UphbzycNJXMXUDVVC0002-78-97 10:37:00 Test Item Value Reference Range Interpretation Comments PTT (test code = PTT) 25.0 s 22.9-35.8 [facility] HpyegbaCMLCPFIZOE8357-36-08 10:37:0070.5[facility]annHEMATOLOGY 2020-08-29 10:37:0018.8[facility] TtgneweCYEOYSWKQJ5890-24-97 10:37:009.5[facility] DgupuqrLSHCFPQWBD9973-38-24 10:37:000.9[facility] QpgbywrWBFKCJYOFN7574-97-03 10:37:000.3[facility] OohontyIWBDBOAJXA4688-10-72 10:37:004.8[facility] XNWMWOOZWE8525-03-90 10:37:001.3[facility] QvpcbfuXCIHYJPFTX6925-29-07 10:37:000.6 [facility] QlqmfevNLJVBOMLZO1013-06-78 10:37:000.1[facility]annHEMATOLOGY 2020-08-29 10:37:001+ *ABN*(08/29/20 5:37 AM)[facility] GkwcsqtDMJBWXYVYE2073-05-65 10:37:00Not Detected (08/29/20 5:37 AM)[facility]CHLAMYDIA, GC, TV,PCR, IN WRWQB5963-79-85 15:38:00 Test Item Value Reference Range Interpretation Comments FT (test code = CHTR) Not detected (qualifier Not Detected N value) FT (test code = Not detected (qualifier Not Detected N NGONO) value) FT (test code = TRVG) Not detected (qualifier Not Detected N value) [facility] AOGADBXSSQI2414-87-41 10:57:00 Test Item Value Reference Range Interpretation Comments Color (test code = UCOLR) Dk. Yellow Clarity (test code = UCLAR) Hazy Glucose (test code = UGLUC) NEGATIVE NEGATIVE N Bilirubin (test code = UBILI) NEGATIVE NEGATIVE N Ketones (test code = UKET) NEGATIVE NEGATIVE N Specific [place] (test code = 1.025 1.005-1.030 A USPGR) [...] = None Seen None Seen N URCRYS) [facility]"
--- NOTE | 2022-04-09 14:27 | RAD REPORT ---
EXAM DESCRIPTION: RAD - Chest Single View - 04/09/2022 2:18 pm CLINICAL HISTORY: CHEST PAIN COMPARISON: Chest Single View dated 04/08/2022; Chest Single View dated 03/18/2022; Chest Single Vie w dated 03/11/2022; Chest Single View dated 02/26/2022 FINDINGS: Lines: None. Lungs: No evidence of edema or pneumonia. Pleural: No significant pleural effusions or pneumothorax. Cardiac: Similar cardiomegaly. Mediastinum: Within normal limits. Bones: No acute fractures. Shoulder arthroplasties . Other: None IMPRESSION: No acute cardiopulmonary disease.
[2022-04-09 15:30] LABS: Potassium 3.8 mmol/L (3.5-5.1)
[2022-04-09 15:34] LABS: Absolute Lymphocytes (CBC) 1.4 K/uL (0.7-4.9); Hematocrit 33.6 % (36.0-45.0); Lymphocytes % 22.8 % (15.3-44.8); MCV 92.1 fL (80-100); RBC Red Blood Cell Count 3.65 M/uL (3.86-4.86)
--- NOTE | 2022-04-09 15:44 | ER ---
Nurse's Notes [facility] Name: Marjan Kolb Age: 67 yrs Sex: Female : 1955 Arrival Date: 04/09/2022 Time: 12:19 Bed 7 Private MD: Diagnosis: Chest pain, unspecified Presentation: 04/09 12:19 Chief complaint: EMS states: CP since yesterday and headache, was seen in ED yesterday. vg1 AFib on monitor. Was given nitro and aspirin. No IV access. 190 systolic. 12:30 Coronavirus screen: Client denies travel out of the [place] in the last 14 days. ss 12:30 Method Of Arrival: EMS: [facility] ss 13:34 Chief complaint: Patient states: Headache began this morning and left hand numbness, CP vg1 and SOB. Ebola Screen: Patient negative for fever greater than or equal to 101.5 degrees Fahrenheit, and additional compatible Ebola Virus Disease symptoms. Initial Sepsis Screen: Does the patient meet any 2 criteria? No. Patient's initial sepsis screen is negative. Initial Sepsis Screen: Does the patient have a suspected source of infection? No. Patient's initial sepsis screen is negative. Risk Assessment: Do you want to hurt yourself or someone else? Patient reports no desire to harm self or others. Onset of symptoms was April 09, 2022. 13:34 Acuity: BLAYNE 3 vg1 Triage Assessment: 13:34 General: Appears uncomfortable, Behavior is cooperative. Pain: Complains of pain in vg1 chest and head Pain currently is 10 out of 10 on a pain scale. Pain began 1 day ago. Neuro: Level of Consciousness is awake, alert, obeys commands, Oriented to person, place, time, situation, Reports headache numbness in left hand. Cardiovascular: Patient's skin is warm and dry. Historical: - Allergies: 12:27 Bactrim DS; ss 12:27 butorphanol tartrate; ss 12:27 Fentanyl; ss 12:27 Reglan; ss 12:27 Stadol; ss 12:27 sulfamethoxazole (bulk); ss 12:27 TRIMETHOPRIM; ss - PMHx: 12:27 Anxiety; Atrial Fib; Bipolar disorder; Chronic pain; COPD; esophageal varices; ss Hepatitis; HIV; Hypertension; Migraines; Panic Attacks; - PSHx: 12:27 Appendectomy; Bilateral shoulder repair; Cholecystectomy; hernia repair; R wrist SX; ss - Immunization history:: Client reports receiving the 2nd dose of the Covid vaccine. - Social history:: Smoking status: Patient/guardian denies using tobacco, the patient reports quitting approximately 2 years ago. Screenin:40 Abuse screen: Denies threats or abuse. Denies injuries from another. Nutritional bp screening: No deficits noted. Tuberculosis screening: No symptoms or risk factors identified. Fall Risk None identified. Assessment: 13:45 General: SEE TRIAGE NOTE. bp 14:39 Reassessment: UNABLE TO OBTAIN PIV, PHLEBOTOMY CONTACTED, PROVIDER AWARE. bp 16:14 Reassessment: PT DC HOME WITH FAMILY. bp Vital Signs: 13:34 BP 183 / 91; Pulse 55; Resp 20; Temp 98.1; Pulse Ox 100% ; Weight 74.39 kg; Height 5 vg1 ft. 4 in. (162.56 cm); Pain 10/10; 13:45 BP 172 / 92; Pulse 55; Resp 16; Pulse Ox 98% ; bp 15:00 BP 169 / 91; Pulse 52; Resp 16; Pulse Ox 97% ; bp 16:00 BP 164 / 87; Pulse 55; Resp 16; Pulse Ox 96% ; bp 13:34 Body Mass Index 28.15 (74.39 kg, 162.56 cm) vg1 ED Course: 12:19 Patient arrived in ED. vg1 13:11 Medhat Boyer is PHCP. jl9 13:11 Justus Kolb MD is Attending Physician. jl9 13:34 Arm band placed on. vg1 13:37 Triage completed. vg1 14:10 Carlos Eduardo Olivera, ASHLEY is Primary Nurse. bp 14:20 XRAY Chest (1 view) In Process Unspecified. EDMS 14:40 Patient has correct armband on for positive identification. Bed in low position. Call bp light in reach. Side rails up X2. Client placed on continuous cardiac and pulse oximetry monitoring. NIBP monitoring applied. 14:51 Missed attempt(s): 22 gauge in left forearm. Bleeding controlled, band aid applied, jw7 catheter tip intact. 16:14 No provider procedures requiring assistance completed. Patient did not have IV access bp during this emergency room visit. Patient maintains SpO2 saturation greater than 95% on room air. Administered Medications: 16:00 Drug: hydrALAZINE 20 mg {Note: GIVEN PO PER MD.} Route: IVP; Site: Other; bp 16:15 Follow up: Response: No adverse reaction bp 16:00 Drug: morphine 2 mg {Note: GIVEN IM PER PROVIDER.} Route: IVP; Infused Over: 4 mins; bp Site: Other; 16:15 Follow up: Response: No adverse reaction bp Medication: 16:14 VIS not applicable for this client. bp Outcome: 15:44 Discharge ordered by MD. blanco 16:14 Discharged to home via wheelchair, with family. bp 16:14 Condition: stable 16:14 Discharge instructions given to patient, Instructed on discharge instructions, follow up and referral plans. Demonstrated understanding of instructions, follow-up care. 16:15 Patient left the ED. bp Signatures: Dispatcher [employer] EDSandra Bullard RN RN Carlos Eduardo Springer RN RN bp Garcia, Victoria, RN RN Cherie Elias John jl9
--- NOTE | 2022-04-09 15:45 | EDPHYS ---
Physician Documentation [facility] Name: Marjan Kolb Age: 67 yrs Sex: Female : 1955 Arrival Date: 04/09/2022 Time: 12:19 Bed 7 Private MD: Justus Cervantes HPI: 04/09 14:03 This 67 yrs old Female presents to ER via EMS with complaints of Chest Pain, jl9 Headache. 14:03 Onset: The symptoms/episode began/occurred this morning. Associated signs and symptoms: jl9 The patient has no apparent associated signs or symptoms. Modifying factors: The patient symptoms are alleviated by nothing, the patient symptoms are aggravated by nothing. The patient has experienced similar episodes in the past. Historical: - Allergies: 12:27 Bactrim DS; ss 12:27 butorphanol tartrate; ss 12:27 Fentanyl; ss 12:27 Reglan; ss 12:27 Stadol; ss 12:27 sulfamethoxazole (bulk); ss 12:27 TRIMETHOPRIM; ss - PMHx: 12:27 Anxiety; Atrial Fib; Bipolar disorder; Chronic pain; COPD; esophageal varices; ss Hepatitis; HIV; Hypertension; Migraines; Panic Attacks; - PSHx: 12:27 Appendectomy; Bilateral shoulder repair; Cholecystectomy; hernia repair; R wrist SX; ss - Immunization history:: Client reports receiving the 2nd dose of the Covid vaccine. - Social history:: Smoking status: Patient/guardian denies using tobacco, the patient reports quitting approximately 2 years ago. ROS: 14:04 Constitutional: Negative for fever, chills, and weight loss, Eyes: Negative for injury, jl9 pain, redness, and discharge, ENT: Negative for injury, pain, and discharge, Neck: Negative for injury, pain, and swelling, Respiratory: Negative for shortness of breath, cough, wheezing, and pleuritic chest pain, Abdomen/GI: Negative for abdominal pain, nausea, vomiting, diarrhea, and constipation. 14:04 Back: Negative for injury and pain, : Negative for injury, bleeding, discharge, and swelling, MS/Extremity: Negative for injury and deformity, Skin: Negative for injury, rash, and discoloration. 14:04 Psych: Negative for depression, anxiety, suicide ideation, homicidal ideation, and hallucinations, Allergy/Immunology: Negative for hives, rash, and allergies, Endocrine: Negative for neck swelling, polydipsia, polyuria, polyphagia, and marked weight changes, Hematologic/Lymphatic: Negative for swollen nodes, abnormal bleeding, and unusual bruising. 14:04 Cardiovascular: Positive for chest pain. 14:04 Neuro: Positive for headache. Exam: 14:04 Constitutional: This is a well developed, well nourished patient who is awake, alert, jl9 and in no acute distress. Head/Face: Normocephalic, atraumatic. Eyes: Pupils equal round and reactive to light, extra-ocular motions intact. Lids and lashes normal. Conjunctiva and sclera are non-icteric and not injected. Cornea within normal limits. Periorbital areas with no swelling, redness, or edema. ENT: Mucous membranes moist. Neck: Trachea midline, no thyromegaly or masses palpated, and no cervical lymphadenopathy. Supple, full range of motion without nuchal rigidity, or vertebral point tenderness. No Meningismus. Chest/axilla: Normal chest wall appearance and motion. Nontender with no deformity. No lesions are appreciated. Cardiovascular: Regular rate and rhythm with a normal S1 and S2. No gallops, murmurs, or rubs. Normal PMI, no JVD. No pulse deficits. Respiratory: Lungs have equal breath sounds bilaterally, clear to auscultation and percussion. No rales, rhonchi or wheezes noted. No increased work of breathing, no retractions or nasal flaring. Abdomen/GI: Soft, non-tender, with normal bowel sounds. No distension or tympany. No guarding or rebound. No evidence of tenderness throughout. Back: No spinal tenderness. No costovertebral tenderness. Full range of motion. Skin: Warm, dry with normal turgor. Normal color with no rashes, no lesions, and no evidence of cellulitis. MS/ Extremity: Pulses equal, no cyanosis. Neurovascular intact. Full, normal range of motion. Neuro: Awake and alert, GCS 15, oriented to person, place, time, and situation. Cranial nerves II-XII grossly intact. Motor strength 5/5 in all extremities. Sensory grossly intact. Cerebellar exam normal. Normal gait. Psych: Awake, alert, with orientation to person, place and time. Behavior, mood, and affect are within normal limits. Vital Signs: 13:34 BP 183 / 91; Pulse 55; Resp 20; Temp 98.1; Pulse Ox 100% ; Weight 74.39 kg; Height 5 vg1 ft. 4 in. (162.56 cm); Pain 10/10; 13:45 BP 172 / 92; Pulse 55; Resp 16; Pulse Ox 98% ; bp 15:00 BP 169 / 91; Pulse 52; Resp 16; Pulse Ox 97% ; bp 16:00 BP 164 / 87; Pulse 55; Resp 16; Pulse Ox 96% ; bp 13:34 Body Mass Index 28.15 (74.39 kg, 162.56 cm) vg1 MDM: 13:40 Patient medically screened. 9 14:04 Data reviewed: vital signs, nurses notes. [facility] 15:43 Counseling: I had a detailed discussion with the patient and/or guardian regarding: the [facility] historical points, exam findings, and any diagnostic results supporting the discharge/admit diagnosis, lab results, radiology results, the need for outpatient follow up, to return to the emergency department if symptoms worsen or persist or if there are any questions or concerns that arise at home. Response to treatment: the patient's symptoms have resolved after treatment. 15:43 Test interpretation: by ED physician or midlevel provider: ECG. 04/09 13:15 Order name: Basic Metabolic Panel; Complete Time: 15:33 04/09 13:15 Order name: CBC with Diff; Complete Time: 15:40 04/09 13:15 Order name: Troponin HS; Complete Time: 15:33 04/09 13:15 Order name: XRAY Chest (1 view); Complete Time: 14:33 04/09 13:15 Order name: EKG; Complete Time: 13:16 04/09 13:15 Order name: Cardiac monitoring; Complete Time: 14:10 04/09 13:15 Order name: EKG - Nurse/Tech; Complete Time: 14:10 04/09 13:15 Order name: Labs collected and sent; Complete Time: 16:15 Administered Medications: 16:00 Drug: hydrALAZINE 20 mg {Note: GIVEN PO PER MD.} Route: IVP; Site: Other; bp 16:15 Follow up: Response: No adverse reaction bp 16:00 Drug: morphine 2 mg {Note: GIVEN IM PER PROVIDER.} Route: IVP; Infused Over: 4 mins; bp Site: Other; 16:15 Follow up: Response: No adverse reaction bp Disposition Summary: 04/09/22 15:44 Discharge Ordered Location: Home jl9 Condition: Stable jl9 Diagnosis - Chest pain, unspecified jl9 Followup: jl9 - With: Private Physician - When: 1 - 2 days - Reason: Recheck today's complaints, Continuance of care, Re-evaluation by your physician Discharge Instructions: - Discharge Summary Sheet jl9 - Nonspecific Chest Pain, Adult, Zmru-gp-Joqg jl9 Forms: - Medication Reconciliation Form jl9 - Thank You Letter jl9 - Antibiotic Education jl9 - Prescription Opioid Use jl9 Addendum: 04/11/2022 13:36 Co-signature as Attending Physician, Justus Kolb MD I agree with the assessment and c restrepo plan of care. Signatures: Dispatcher [employer] Justus Long MD MD cha Smirch, Shelby, ASHLEY RN Carlos Eduardo Springer RN RN Renae Alvarez RN RN [facility] Medhat Boyer jl9
[2022-04-09] MEDS ORDERED: HYDRALAZINE HCL 10 MG TABLET ONE (16:03)
[2022-04-09] MEDS ORDERED: MORPHINE 2 MG/ML SYR ONE (16:04)
[2022-04-09 16:35] VITALS: TEMP 98.1
[2022-04-09 16:39] VITALS: BP 164/87; O2SAT 96
--- NOTE | 2022-04-10 19:12 | EKG ---
Test Date: 2022-04-09 Test Time: 14:15:03 Obstetrician And Gynaecologist: AUBRIE MEASUREMENT RESULTS: Intervals: Rate: 54 MT: 244 QRSD: 80 QT: 456 QTc: 432 [place]: P: MT: 244 QRS: 12 T: 47 INTERPRETIVE STATEMENTS: Sinus bradycardia with 1st degree AV block Minimal voltage criteria for LVH, may be normal variant ST & T wave abnormality, consider inferior ischemia Abnormal ECG Compared to ECG 04/08/2022 18:45:19 First degree AV block now present Possible ischemia now present Junctional rhythm no longer present Prolonged QT interval no longer present ST (T wave) deviation still present Electronically Signed On 04-10-22 19:10:24 ADULT NEUROPSYCHOLOGIST by Per Crane
--- NOTE | 2022-04-12 15:36 | EKG ---
Test Date: 2022-04-09 Test Time: 14:15:56 Mechanism Inspector: AUBRIE MEASUREMENT RESULTS: Intervals: Rate: 53 CO: 192 QRSD: 88 QT: 516 QTc: 484 [place]: P: 33 CO: 192 QRS: 14 T: 27 INTERPRETIVE STATEMENTS: Sinus bradycardia Minimal voltage criteria for LVH, may be normal variant Nonspecific ST abnormality Abnormal ECG Compared to ECG 04/09/2022 14:15:03 First degree AV block no longer present Possible ischemia no longer present ST (T wave) deviation still present Electronically Signed On 04-12-22 15:31:49 HOSPICE PHYSICIAN by Mike Lund
== END 2022-04-09 16:15 | disposition home or self-care (01) ==
LOC: ER 12:16
DX: R07.9 Chest pain, unspecified (principal); R51.9 Headache, unspecified; I10 Essential (primary) hypertension; Z21 Asymptomatic human immunodeficiency virus [HIV] infection status; Z88.1 Allergy status to other antibiotic agents; Z88.2 Allergy status to sulfonamides; Z88.5 Allergy status to narcotic agent; Z88.8 Allergy status to other drugs, medicaments and biological substances; Z91.048 Other nonmedicinal substance allergy status
CPT/HCPCS: 93005 ×2; 85025; 80048; 36415; 84484; 71045; 96375; 96374; 99284; J2270

== ENCOUNTER 2022-04-15 14:06 | Emergency (ER) | payer OTHER ==
--- OUTSIDE RECORDS SUMMARY | 2022-04-15 14:19 | XMS REPORT | Continuity of Care Document ---
:1955 Author Organization [facility] t Address [address] [place] [address] Care Team Providers Name Role Phone Urmila Rahman Primary Care Physician ELAN LIRA Attending Clinician Unavailable KINJAL, BEVERLY Attending Clinician Unavailable SANTIAGO CARDENAS Attending Clinician Unavailable UNKNOWN, ATTENDING Attending Clinician Unavailable Robbi Bal Attending Clinician Santiago Sanchez Attending Clinician [facility] Attending Clinician Unavailable Stevo RAMIREZ, Isaias Arredondo Attending Clinician Unavailable TOMY HUDSON Attending Clinician Unavailable Reilly Means MD Attending Clinician Ofe Shields MD Attending Clinician Tomy Hudson MD Attending Clinician Doctor Unassigned, Norris Attending Clinician Unavailable Bill COLES Attending Clinician Unavailable Bill Rose Attending Clinician CHARITY MCALLISTER Attending Clinician Unavailable Charity Mcallister MD Attending Clinician GADIEL KOEHLER Attending Clinician Unavailable Mike Lund Attending Clinician Unavailable NIKOLAI REEVES Attending Clinician Unavailable Eliseo Arce MD Attending Clinician Carol Ann MENTAL HE[employer] 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 Attending Clinician HEMATPOLIZ, BEVERLY Attending Clinician Unavailable Gloria Hinojosa Attending Clinician Michael Hagen RN Attending Clinician Unavailable Vani, [facility] Attending Clinician UnavailDO PORSHA Newell Attending Clinician Unavailable Gadiel Koehler MD Attending Clinician Eveline Hansen MD Attending Clinician Eladio Colorado RN Attending Clinician Unavailable Leyda Willis Attending Clinician [phone] Stefanie Montalvo RN Attending Clinician Unavailable TOMY HUDSON Admitting Clinician Unavailable Tomy Hudson MD Admitting Clinician Bill COLES Admitting Clinician Unavailable Lele Rahman Admitting Clinician Unavailable Mike Lund Admitting Clinician Unavailable ELISEO ARCE Admitting Clinician Unavailable DO PORSHA STREETER Admitting Clinician Unavailable Payers Payer Name Policy Type Policy Number Effective Date Expiration Date S gabino [facility] COMMUNITY PLAN [id number] 2012 STAR PLUS OON 00:00:00 [facility] [id number] 2019 DUAL COMPLETE HMO 00:00:00 [facility] [id number] 2019 PLUS 00:00:00 MEDICAID [place] [facility] [id number] 2020 00:00:00 [employer] [id number] 2019 [facility] 00:00:00 [employer] MEDICARE ADV [id number] 2019 2019 00:00:00 00:00:00 Problems Condition Condition Condition Status Onset Resolution Last Treating Co mments Source Name Details Category Date Date Treatment Clinician Date Dyspnea, Dyspnea, Disease Active Unive rs unspecifie unspecifie 02-11 it y of d type d type 00:00: [address] Gastropare Gastropare Disease Active Overview : Methodi sis sis 4-[address] 00:00: [facility] note l might be different from the original. Added automatic ally from request for surgery [id number] Dysphagia Dysphagia Disease Active Overview: Methodi 4-[address] 00:00: [facility] 00 note l might be different from the original. 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:00: [place] shoulder shoulder 00 Medica l arthroplas arthroplas Br anch ty ty Posttrauma Posttrauma Disease Active U nivers tic stress tic stress 08 it y of disorder disorder 00:00: [place] [facility] 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 00:00: [place] virus virus 00 Medical (HIV) (HIV) Branch disease disease Bipolar 2 Bipolar 2 Disease Active Uni vers disorder disorder 11-18 ity of 00:00: [place] [facility] Chronic Chronic Disease Active Univers hepatitis hepatitis 11-18 ity of C C 00:00: [place] [facility] Hypertensi Hypertensi Disease Active U nivers on on 11-18 ity of 00:00: [place] [facility] Allergies, Adverse Reactions, Alerts Allergy Allergy Status Severity Reaction(s) Onset Inactive Treating Comm ents Source Name Type Date Date Clinician sulfamet DA Active SV N/V [facility] hoxazole 1-25 Clear 00:00: Garcia 00 [facility] trimetho DA Active SV [facility] prim 1-25 Clear 00:00: Garcia 00 [facility] codeine DA Active SV N/V [facility] 1-25 Clear 00:00: Garcia 00 [facility] Metoclop Propensi Active [place] ramide ty to [...] [facility] Natural [facility] Natural father Hypertension [facility] Natural father [facility] Natural mother Pentecostalism [facility] Social History Social Habit Start Date Stop Date Quantity Comments Source History SDOH Pentec[facility]alism Alcohol Frequency Hospita l History SDOH Pentec[facility]ism Alcohol Std Drinks Hospit al History SDWI [facility] Alcohol [facility] Tobacco use and 2022-02-11 2022-02-11 Former smokeless Uni versity of exposure 00:00:00 00:00:00 tobacco user [facility] [place] Tobacco Comment 2022-02-11 2022-02-11 Smokes approx 1-2 Un iversity of 00:00:00 00:00:00 cigarettes per [place] [facility] porfirio day when she Branch smokes Exposure to 2022-01-31 2022-02-10 Not sure [facility]-CoV-2 (event) 00:00:00 22:53:00 [facility] Alcohol intake 2020-12-08 2020-12-08 Current drinker [facility]o dist 00:00:00 00:00:00 of [facility] (finding) Cigarettes smoked 2020-09-05 2020-09-[address] current (pack [facility] 00:00[facility] - [facility] Cigarette 2020-09-05 2020-09-05 Pentecostalism pack-years 00:00:00 00:00:00 Hospital Alcohol Comment 2016-09-23 2016-09-23 rare Pentecostalism 00:00:00 00:00:00 Hospital History of tobacco 2011-09-29 User of smokeless University of use 00:00:00 tobacco [facility] Sex [birth year] [facility] 00:00:00 00:00:00 Smoking Status Start Date Stop Date Source Ex-smoker 2022-02-11 00:00:00 2022-02-11 [facility] Medications Ordered Filled Start Stop Current Ordering Indication Dosage Frequency Signature Comments Components Source Medication Medication Date Date Medication? Clinician (SIG) Name Name zoster 2021-05- Yes [id number] .5mL 0.5 mL by Univers vaccine, 0-14 10-15 9104 Intramuscu ity of recombinant 00:00: 04:59 lar route [place] (SHINGRIX, 00 :00 once now Medic al PF,) for 1 Branch injection dose. And repeat in 2-6 months hydralAZINE Yes 25mg Take 25 mg Univers (APRESOLINE 9- by mouth ity of ) 25 mg 19:28: daily. [place] tablet [address] [place] [address] lisinopril Yes 40mg Take 40 mg U [...] o f 1 mg tablet 19:28: at [place] [address] bedtime. Medical Branch traZODone 2-0 Yes 50mg Take 50 mg Un matt 100 mg 9-27 by mouth ity of tablet 19:28: at [place] [address] bedtime. Medical Branch hydralAZINE 2021-0 Yes 25mg [...] 100 mg 04 (two) Medical tablet times [place] daily. amLODIPine 2-0 Yes 10mg Take 10 mg U nivers (NORVASC) 9-27 by mouth ity of 10 mg 19:28: daily. [place] tablet 04 Medical Branch clonazePAM 2021-0 Yes 1mg Take 1 mg Un matt (KLONOPIN) 9-27 by mouth ity o f 1 mg tablet 19:28: at [place] [address] bedtime. Medical Branch traZODone 2-0 Yes 50mg Take 50 mg Un matt 100 mg 9-27 by mouth ity of tablet 19:28: at [place] [address] bedtime. Medical Branch hydralAZINE 2-0 Yes 25mg [...] o f 1 mg tablet 19:28: at [place] [address] bedtime. Medical Branch traZODone 2021-0 Yes 50mg Take 50 mg Un matt 100 mg 9-27 by mouth ity of tablet 19:28: at [place] [address] bedtime. Medical Branch hydralAZINE 2021-0 Yes 25mg [...] o f 1 mg tablet 19:28: at [place] [address] bedtime. Medical Branch traZODone 2-0 Yes 50mg Take 50 mg Un matt 100 mg 9-27 by mouth ity of tablet 19:28: at [place] [address] bedtime. Medical Branch hydralAZINE 2-0 Yes 25mg [...] o f 1 mg tablet 19:28: at [place] [address] bedtime. Medical Branch traZODone 2021-0 Yes 50mg Take 50 mg Un matt 100 mg 9-27 by mouth ity of tablet 19:28: at [place] [address] bedtime. Medical Branch hydralAZINE 2021-0 Yes 25mg [...] o f 1 mg tablet 19:28: at [place] [address] bedtime. Medical Branch traZODone 2-0 Yes 50mg Take 50 mg Un matt 100 mg 02-16 by mouth ity of tablet 19:28: at [place] 04 bedtime. Medical Branch cefpodoxime 2021- Yes [id number] 200mg Take 1 Univers 200 mg 02-16 tablet by ity of tablet 00:00: 04:59 mouth in [place] 00 :00 the Medical morning Branch and 1 tablet in the evening. Do all this for 3 days. cefpodoxime 0 2021- Yes [id number] 200mg Take 1 Univers 200 mg 02-16 tablet by ity of tablet 00:00: 04:59 mouth in [place] 00 :00 the Medical morning Branch and 1 tablet in the evening. Do all this for 3 days. haloperidol 2021- No 2mg 2 mg, Slow Univers lactate 02-15 IV Push, ity of (HALDOL) 09:00: 09:12 ONCE, 1 [place] injection 2 00 :00 dose, On Medi porfirio mg [facility] 02/15/22 at 0400, Routine hydroCHLORO 0 Yes 25mg 25 mg, Univ ers thiazide 9-25 Oral, ity of (ESIDRIX) 14:00: DAILY, [place] capsule 25 00 First dose Med ical mg on [place] Branch 02/14/22 at 0900, Until Discontinu ed, Routine butalbital- Yes 1{tbl} 1 tablet, [facility] acetaminoph 24 Oral, ity of en-caff 18:46: Q6HPRN, [place] (ESGIC) 06 Starting Medical 50-325-40 on Sat Branch mg tablet 1 02/13/22 at tablet 1346, Until Discontinu ed, Routine, headaches dicyclomine Yes 10mg 10 mg, Univ ers (BENTYL) 9-24 Oral, QID, ity o f capsule 10 17:00: First dose [place] mg 00 on [facility] Medical 02/13/22 at Branch 1200, Until Discontinu ed, Routine tiZANidine 0 Yes 4mg 4 mg, Univer s (ZANAFLEX) 9-23 Oral, Q8H, ity of tablet 4 mg 19:00: First dose [place] 00 on Fri Medical 02/12/22 at Branch 1400, Until Discontinu ed, Routine HYDROmorpho Yes 4mg 4 mg, Unive rs ne 02-12 Oral, ity of (DILAUDID) 17:37: Q6HPRN, [place] tablet 4 mg 07 Starting Medi porfirio on Tue02/12/22 at 1237, Until Discontinu ed, Routine, Pain (scale 4-6) morpHINE (2 2021-2021- No 2mg 2 mg, Slow Univers mg/mL) 02-12 IV Push, ity of injection 2 17:36: 20:36 Q6HPRN, [place] mg 46 :24 Starting Medical on Tue02/12/22 at 1236, Until 02/14/22 at 1536, Routine, Pain (scale 7-10) cefTRIAXone 2021-2021- No 2000mg 2,000 mg, Univers (ROCEPHIN) 02-12 IV ity of 2,000 mg in 17:00: 18:24 Piggyback, [place] NaCl 0.9% 00 :00 Q24H ABX, Medic [...] First dose Medi porfirio 40 mg on Tue02/12/22 at 0900, Until Discontinu ed, Routine SERTraline Yes 200mg 200 mg, Uni vers (ZOLOFT) 02-12 Oral, ity of tablet 200 14:00: DAILY, [place] mg 00 First dose Medical on Tue02/12/22 at 0900, Until Discontinu ed, Routine buPROPion 0 Yes 150mg 150 mg, Univ ers XL 02-12 Oral, ity of (WELLBUTRIN 14:00: DAILY, [place] XL[place] tablet 00 First dose Med ical 150 mg on Tue02/12/22 at 0900, Until Discontinu ed, Routine enoxaparin Yes 40mg 40 mg, Unive rs (LOVENOX) 02-11 Subcutaneo ity of injection 22:00: us, DAILY [place] 40 mg 00 AT 1700, Medical First dose Branch on [facility] 02/11/22 at 1700, Until Discontinu ed, Routine aspirin 2021- No 325mg 325 mg, Unive rs E.C. 02-11 Oral, ity of (ECOTRIN) 21:33: 21:44 ONCE, 1 [place] tablet 325 00 :00 dose, On Medic al mg [facility] 02/11/22 at 1645, Routine nitroglycer Yes .4mg 0.4 mg, Uni vers in 02-11 Sublingual ity of (NITROSTAT) 21:31: , Q5MIN [place] sublingual 20 PRN, Medical tablet 0.4 Starting Branc h mg on [facility] 02/11/22 at 1631, Until Discontinu ed, Routine, Chest pain cloNIDine 0 Yes .1mg 0.1 mg, Unive rs (CATAPRES) 02-11 Oral, ity of tablet 0.1 21:18: TIDPRN, [place] mg 37 Starting Medical on [place] [facility] 02/11/22 at 1618, Until Discontinu ed, Routine, SBP > 170 nystatin-tr 2021-0 Yes Topical, Un matt iamcinolone 02-11 TID, First it y of (MYCOLOG) 19:00: dose on [place] cream [facility] 02/11/22 at Branch 1400, Until Discontinu ed, Routine busPIRone 0 Yes 30mg 30 mg, Univer s (BUSPAR) 02-11 Oral, BID, ity o f tablet 30 18:00: First dose [place] mg 00 on [facility] 02/11/22 at Branch 1300, Until Discontinu ed, Routine raltegravir 2022-0 Yes 400mg 400 mg, Un matt (ISENTRESS) 02-11 Oral, BID, it y of tablet 400 18:00: First dose [place] mg 00 on [facility] Medical 02/11/22 at Branch 1300, Until Discontinu ed, JEO metoprolol 2021-0 Yes 100mg 100 mg, Uni vers tartrate 02-11 Oral, BID, ity o f (LOPRESSOR) 18:00: First dose [place] tablet 100 00 on [facility] Medical mg 02/11/22 at Branch 1300, Until Discontinu ed, Routine lisinopriL 0 Yes 40mg 40 mg, Unive rs (PRINIVIL,Z 02-11 Oral, BID, it y of ESTRIL) 18:00: First dose [place] tablet 40 00 on [facility] Medical mg 02/11/22 at Branch 1300, Until Discontinu ed, Routine emtricitabi 0 Yes 1{tbl} 1 tablet, [facility] 02-11 Oral, ity of r alafen 18:00: DAILY, [place] (DESCOVY) 00 First dose Medi porfirio tablet 1 on [facility] tablet 02/11/22 at 1300, Until Discontinu ed, Routine ipratropium 0 Yes .5mg 0.5 mg, Uni vers (ATROVENT) 02-11 Inhalation ity of 0.02 % 17:57: , QIDPRN, [place] nebulizer 10 Starting Medica l solution on [facility] 0.5 mg 02/11/22 at 1257, Until Discontinu ed, Routine, Wheezing, Shortness of Breath amLODIPine 0 Yes 10mg 10 mg, Unive rs (NORVASC) 02-11 Oral, ity of tablet 10 17:30: DAILY, [place] mg 00 First dose Medical (after Branch last modificati on) on [facility] 02/11/22 at 1230, Until Discontinu ed, Routine hydrALAZINE 2021- No 25mg 25 mg, Uni vers (APRESOLINE 02-11 Oral, ity of ) tablet 25 17:30: 12:54 DAILY, [place] mg 00 :55 First dose Medical (after Branch last modificati on) on [facility] 02/11/22 at 1230, Until Discontinu ed, Routine HYDROcodone 0 2021- No 1{tbl} 1 tablet, Univers -acetaminop 02-11 Oral, ity of hen (NORCO 14:11: 17:37 Q6HPRN, [place] 5) 5-325 mg 03 :24 Starting Medi porfirio tablet 1 on [place] [facility] tablet 02/11/22 at 0911, Until Tue02/12/22 at 1237, Routine, Pain (scale 7-10) melatonin 2021-0 Yes 3mg 3 mg, Univers (MELATIN) 02-11 Oral, ity of tablet 3 mg 14:08: QHSPRN, [place] 17 Starting Medical on [place] [facility] 02/11/22 at 0908, Until Discontinu ed, Routine, Insomnia acetaminoph 0 2021- No 1{tbl} 1 tablet, Univers en-codeine 02-11 Oral, ity of (TYLENOL 14:06: 17:37 Q6HPN, [place] #3) 300-30 19 :24 Starting Medic al mg tablet 1 on [place] [facility] tablet 02/11/22 at 0906, Until Tue02/12/22 at 1237, Routine, Pain (scale 4-6) sennosides- 0 Yes 1{tbl} 1 tablet, Univers docusate 02-11 Oral, ity of sodium 14:06: QDAILYPRNSalt [place], [place] (SENOKOT-S) 09 Starting Medi porfirio 8.6-50 mg on [facility] Branch per tablet 02/11/22 at 1 tablet 0906, Until Discontinu ed, Routine, Constipati on ondansetron 0 Yes 4mg 4 mg, Slow Univers (ZOFRAN 02-11 IV Push, ity of (PF)) 14:05: Q6HPRNSalt [place], [place] injection 4 59 Starting Medi porfirio mg on [place] [facility] 02/11/22 at 0905, Until Discontinu ed, Routine, Nausea and Vomiting (N/V) acetaminoph 2021-0 Yes 650mg 650 mg, Un matt en 02-11 Oral, ity of (TYLENOL) 14:04: Q6HPRNSalt [place], [place] tablet 650 37 Starting Medic al mg on [place] [facility] 02/11/22 at 0904, Until Discontinu ed, Routine, Pain (scale 1-3) lisinopril 2022-0 Yes 40mg Take 40 mg U nivers (PRINIVIL,Z 02-11 by mouth 2 it y of ESTRIL) 40 12:54: (two) [place] mg tablet 19 times Medical daily. Branch metoprolol Yes 100mg Take 100 Un matt tartrate - mg by ity of (LOPRESSOR) 12:54: mouth 2 [place] 100 mg 19 (two) Medical tablet times Branch daily. hydralAZINE 0 Yes 25mg Take 25 mg Univers (APRESOLINE 02-11 by mouth ity of ) 25 mg 09:10: daily. [facility] 54 [facility] Branch amLODIPine 0 Yes 10mg Take 10 mg U nivers (NORVASC) 02-11 by mouth ity of 10 mg 09:10: daily. [facility] 54 [facility] Branch piperacilli 2021- No 3.375g 3.375 g, Univers n-tazobacta [...] of therapy: 72 hours iopamidol 2021- No [id number] 60mL 60 mL, Univers (ISOVUE 02-11 Intravenou [...] Branch 02/11/22 at 0015, JOE emtricitabi Yes [id number] Take one Univers ne-tenofovi 9-12 po daily ity of r alafen 00:00: [place] (DESCOVY) 00 Medical tablet Branch emtricitabi Yes [id number] Take one Univers ne-tenofovi 9-12 po daily ity of r alafen 00:00: [place] (DESCOVY) 00 Medical tablet Branch emtricitabi Yes [id number] Take one Univers ne-tenofovi 9-12 po daily ity of r alafen 00:00: [place] (DESCOVY) 00 Medical tablet Branch emtricitabi Yes [id number] Take one Univers ne-tenofovi 9-12 po daily ity of r alafen 00:00: [place] (DESCOVY) 00 Medical tablet Branch emtricitabi Yes [id number] Take one Univers ne-tenofovi 9-12 po daily ity of r alafen 00:00: [place] (DESCOVY) 00 Medical tablet Branch emtricitabi Yes [id number] Take one Univers ne-tenofovi 9-12 po daily ity of r alafen 00:00: [place] (DESCOVY) 00 Medical tablet Branch emtricitabi Yes [id number] Take one Univers ne-tenofovi 9-12 po daily ity of r alafen 00:00: [place] (DESCOVY) 00 Medical tablet Branch naproxen 2021-0 Yes [id number] 500mg Take 1 U nivers (NAPROSYN) 7-24 tablet by ity of 500 mg 00:00: mouth in [place] tablet 00 the Medical morning Branch and 1 tablet in the evening. Take with meals. methocarbam 2-0 Yes [id number] 500mg Take 1 Univers oL 500 mg 7-24 tablet by ity o f tablet 00:00: mouth 4 [place] 00 (four) Medical times Branch daily. naproxen 2021-0 Yes [id number] 500mg Take 1 U nivers (NAPROSYN) 7-24 tablet by ity of 500 mg 00:00: mouth in [place] tablet 00 the Medical morning Branch and 1 tablet in the evening. Take with meals. methocarbam 2021-0 Yes [id number] 500mg Take 1 Univers oL 500 mg 7-24 tablet by ity o f tablet 00:00: mouth 4 [place] 00 (four) Medical times Branch daily. naproxen 2021-0 Yes [id number] 500mg Take 1 U nivers (NAPROSYN) 7-24 tablet by ity of 500 mg 00:00: mouth in [place] tablet 00 the Medical morning Branch and 1 tablet in the evening. Take with meals. methocarbam 2021-0 Yes [id number] 500mg Take 1 Univers oL 500 mg 7-24 tablet by ity o f tablet 00:00: mouth 4 [place] 00 (four) Medical times Branch daily. esomeprazol 2021- No 40mg Take 40 mg Univers e (NEXIUM) 11-20 by mouth 2 it y of 40 mg 09:12: 00:00 (two) [place] capsule 03 :00 times Medical daily. Branch amiodarone 2021- No 100mg Take 100 U nivers 100 mg 11-20 mg by ity of tablet 09:11: 00:00 mouth [place] 57 :00 daily. Medical Branch apixaban 2021- No 5mg Take 5 mg Uni vers (ELIQUIS) 5 11-20 by mouth 2 i ty of mg tablet 09:11: 00:00 (two) [place] 35 :00 times Medical daily. Branch traZODONE No Take by [facility] ers (DESYREL) 11-20 mouth at ity o f 10 mg/mL 09:10: 00:00 [place]time. [place] oral 28 :00 Medical suspension Branch hydralAZINE Yes 25mg Take 25 mg Univers (APRESOLINE 11-20 by mouth ity of ) 25 mg 08:47: daily. [place] tablet 47 Medical Branch cephALEXin 2021- No [id number] 500mg Take 1 Univers (KEFLEX) 10-24 capsule [...] 7-10). Indication s: acute pain buPROPion Yes [id number] 150mg Take 1 U nivers XL 4-12 tablet by ity of (WELLBUTRIN 00:00: mouth [place] XL) 150 mg 00 daily. Medical 24 hr Branch tablet busPIRone Yes [id number] 30mg Take 1 Un matt 30 mg 4-12 tablet by ity of tablet 00:00: mouth 2 00 (two) Medical times Branch daily. SERTraline Yes [id number] 200mg Take 2 Univers 100 mg 4-12 tablets by ity of tablet 00:00: mouth [place] 00 daily. Medical Branch buPROPion Yes [id number] 150mg Take 1 U nivers XL 4-12 tablet by ity of (WELLBUTRIN 00:00: mouth [place] XL) 150 mg 00 daily. Medical 24 hr Branch tablet busPIRone Yes [id number] 30mg Take 1 Un matt 30 mg 4-12 tablet by ity of tablet 00:00: mouth 2 [place] 00 (two) Medical times Branch daily. SERTraline Yes [id number] 200mg Take 2 Univers 100 mg 4-12 tablets by ity of tablet 00:00: mouth [place] 00 daily. Medical Branch buPROPion 2021-0 Yes [id number] 150mg Take 1 U nivers XL 4-12 tablet by ity of (WELLBUTRIN 00:00: mouth [place] XL) 150 mg 00 daily. Medical 24 hr Branch tablet busPIRone 2021-0 Yes [id number] 30mg Take 1 Un matt 30 mg 4-12 tablet by ity of tablet 00:00: mouth 2 [place] 00 (two) Medical times Branch daily. SERTraline 2021-0 Yes [id number] 200mg Take 2 Univers 100 mg 4-12 tablets by ity of tablet 00:00: mouth [place] 00 daily. Medical Branch buPROPion 2021-0 Yes [id number] 150mg Take 1 U nivers XL 4-12 tablet by ity of (WELLBUTRIN 00:00: mouth [place] XL) 150 mg 00 daily. Medical 24 hr Branch tablet busPIRone 2021-0 Yes [id number] 30mg Take 1 Un matt 30 mg 4-12 tablet by ity of tablet 00:00: mouth 2 [place] 00 (two) Medical times Branch daily. SERTraline 2021-0 Yes [id number] 200mg Take 2 Univers 100 mg 4-12 tablets by ity of tablet 00:00: mouth [place] 00 daily. Medical Branch buPROPion 2021-0 Yes [id number] 150mg Take 1 U nivers XL 4-12 tablet by ity of (WELLBUTRIN 00:00: mouth [place] XL) 150 mg 00 daily. Medical 24 hr Branch tablet busPIRone 2021-0 Yes [id number] 30mg Take 1 Un matt 30 mg 4-12 tablet by ity of tablet 00:00: mouth 2 [place] 00 (two) Medical times Branch daily. SERTraline 2021-0 Yes [id number] 200mg Take 2 Univers 100 mg 4-12 tablets by ity of tablet 00:00: mouth [place] 00 daily. Medical Branch buPROPion 2021-0 Yes [id number] 150mg Take 1 U nivers XL 4-12 tablet by ity of (WELLBUTRIN 00:00: mouth [place] XL) 150 mg 00 daily. Medical 24 hr Branch tablet busPIRone 2021-0 Yes [id number] 30mg Take 1 Un matt 30 mg 4-12 tablet by ity of tablet 00:00: mouth 2 [place] 00 (two) Medical times Branch daily. SERTraline 2021-0 Yes [id number] 200mg Take 2 Univers 100 mg 4-12 tablets by ity of tablet 00:00: mouth [place] 00 daily. Medical Branch buPROPion 2021-0 Yes [id number] 150mg Take 1 U nivers XL 4-12 tablet by ity of (WELLBUTRIN 00:00: mouth [place] XL) 150 mg 00 daily. Medical 24 hr Branch tablet busPIRone 2021-0 Yes [id number] 30mg Take 1 Un matt 30 mg 4-12 tablet by ity of tablet 00:00: mouth 2 [place] 00 (two) Medical times Branch daily. SERTraline 2021-0 Yes [id number] 200mg Take 2 Univers 100 mg 4-12 tablets by ity of tablet 00:00: mouth [place] 00 daily. Medical Branch buPROPion 2021-0 Yes [id number] 150mg Take 1 U nivers XL 4-12 tablet by ity of (WELLBUTRIN 00:00: mouth [place] XL) 150 mg 00 daily. Medical 24 hr Branch tablet busPIRone 2021-0 Yes [id number] 30mg Take 1 Un matt 30 mg 4-12 tablet by ity of tablet 00:00: mouth 2 [place] 00 (two) Medical times Branch daily. SERTraline 2021-0 Yes [id number] 200mg Take 2 Univers 100 mg 4-12 tablets by ity of tablet 00:00: mouth [place] 00 daily. Medical Branch raltegravir 2021-0 Yes [id number] 400mg Take 1 Univers (ISENTRESS) 3-28 tablet by ity of 400 mg 00:00: mouth 2 [place] tablet 00 (two) Medical times Branch daily. raltegravir 2-0 Yes [id number] 400mg Take 1 Univers (ISENTRESS) 3-28 tablet by ity of 400 mg 00:00: mouth 2 [place] tablet 00 (two) Medical times Branch daily. raltegravir 2022-0 Yes [id number] 400mg Take 1 Univers (ISENTRESS) 3-28 tablet by ity of 400 mg 00:00: mouth 2 [place] tablet 00 (two) Medical times Branch daily. raltegravir 2022-0 Yes [id number] 400mg Take 1 Univers (ISENTRESS) 3-28 tablet by ity of 400 mg 00:00: mouth 2 [place] tablet 00 (two) Medical times Branch daily. raltegravir 2021-0 Yes [id number] 400mg Take 1 [facility] (ISENTRESS) 3-28 tablet by ity of 400 mg 00:00: mouth 2 [place] tablet 00 (two) Medical times Branch daily. raltegravir 2021-0 Yes [id number] 400mg Take 1 [facility] (ISENTRESS) 3-28 tablet by ity of 400 mg 00:00: mouth 2 [place] tablet 00 (two) Medical times Branch daily. raltegravir 2021-0 Yes [id number] 400mg Take 1 [facility] (ISENTRESS) 3-28 tablet by ity of 400 mg 00:00: mouth 2 [place] tablet 00 (two) Medical times Branch daily. raltegravir 2021-0 Yes [id number] 400mg Take 1 [facility] (ISENTRESS) 3-28 tablet by ity of 400 mg 00:00: mouth 2 [place] tablet 00 (two) Medical times Branch daily. LORazepam 1 2021- No [id number] 1mg Take 1 [facility] mg tablet 3-21 07- tablet by ity of 00:00: 00:00 mouth [...] times a tablet day. emtricitabi 2021- No [id number] Take one [facility] ne-tenofovi 1-20 09-12 po daily ity of r alafen 00:00: 00:00 [place] (DESCOVY) 00 :00 Medical tablet Branch metoprolol 0 Yes [id number] Take 1 [facility] tartrate 7-26 tablet [facility] (Lopressor) 00:00: (100 mg 100 MG 00 total) by tablet mouth 2 (two) times a day AND 0.5 tablets (50 mg total) every night. metoprolol 0 Yes [id number] Take 1 [facility] tartrate 7-26 tablet [facility] [...] area in groin) hydrALAZINE 2020-0 Yes 50mg Q.[id number] Take 50 mg [facility] (APRESOLINE 7-19 [id number] [address] mouth [facility] ) 50 MG [...] area in groin) hydrALAZINE 0 Yes 50mg Q.[id number] Take 50 mg [facility] (APRESOLINE 7-19 [id number] mouth [facility] ) 50 MG [...] (affected area in groin) hydrALAZINE Yes 50mg Q.[id number] Take 50 mg [facility] (APRESOLINE 7-19 [id number] [address] mouth 3 st ) 50 MG [...] area in groin) hydrALAZINE 2020-0 Yes 50mg Q.[id number] Take 50 mg [facility] (APRESOLINE 7-19 [id number] mouth [facility] ) 50 MG [...] area in groin) hydrALAZINE 0 Yes 50mg Q.[id number] Take 50 mg [facility] (APRESOLINE 7-[id number] mouth [facility] [address] ) 50 MG [...] (affected area in groin) hydrALAZINE Yes 50mg Q.[id number] Take 50 mg [facility] (APRESOLINE 7-19 [id number] [address] mouth 3 [facility] ) 50 MG [...] area in groin) hydrALAZINE 0 Yes 50mg Q.[id number] Take 50 mg [facility] (APRESOLINE 7-[id number] mouth [facility] ) 50 MG [...] area in groin) hydrALAZINE 0 Yes 50mg Q.[id number] Take 50 mg [facility] (APRESOLINE 7-[id number] mouth 3 [address] ) 50 MG [...] (affected area in groin) hydrALAZINE Yes 50mg Q.[id number] Take 50 mg [facility] (APRESOLINE 7-[id number] mouth 3 [address] ) 50 MG [...] area in groin) hydrALAZINE 0 Yes 50mg Q.[id number] Take 50 mg [facility] (APRESOLINE 7-19 [id number] mouth 3 st ) 50 MG [...] area in groin) hydrALAZINE 0 Yes 50mg Q.[id number] Take 50 mg [facility] (APRESOLINE 7-[id number] mouth [facility] [address] ) 50 MG [...] area in groin) hydrALAZINE 0 Yes 50mg Q.[id number] Take 50 mg [facility] (APRESOLINE 7-[id number] mouth [facility] ) 50 MG [...] (affected area in groin) hydrALAZINE Yes 50mg Q.[id number] Take 50 mg [facility] (APRESOLINE 7-[id number] mouth [facility] ) 50 MG [...] area in groin) hydrALAZINE 0 Yes 50mg Q.[id number] Take 50 mg [facility] (APRESOLINE 7-[id number] mouth [facility] ) 50 MG [...] 10:51: daily. [facility] tablet 25 l LORAZepam 2020-0 [...] area in groin) hydrALAZINE 0 Yes 50mg Q.[id number] Take 50 mg [facility] (APRESOLINE 7-[id number] mouth [address] ) 50 MG [...] (affected area in groin) hydrALAZINE Yes 50mg Q.[id number] Take 50 mg [facility] (APRESOLINE 7-[id number] mouth [address] ) 50 MG 10:51: 3D (three) [facility] tablet 25 times a l day. busPIRone Yes 20mg QD Take 20 mg [facility] (BUSPAR) [address] [facility] tablet 10:51: nightly. [...] tablet 25 daily. l nystatin-tr 2020-0 Yes [id number] Apply to [facility] iamcinolone 7-06 area(s) 3 ity of cream 00:00: (three) [place] 00 times Medical daily. Branch nystatin-tr 2020-0 Yes [id number] Apply to [facility] iamcinolone 7-06 area(s) 3 ity of cream 00:00: (three) [place] 00 times Medical daily. Branch nystatin-tr 2020-0 Yes [id number] Apply to [facility] iamcinolone 7-06 area(s) 3 ity of cream 00:00: (three) [place] 00 times Medical daily. Branch nystatin-tr 2020-0 Yes [id number] Apply to [facility] iamcinolone 7-06 area(s) 3 ity of cream 00:00: (three) [place] 00 times Medical daily. Branch nystatin-tr 2020-0 Yes [id number] Apply to [facility] iamcinolone 7-06 area(s) 3 ity of cream 00:00: (three) [place] 00 times Medical daily. Branch nystatin-tr 2020-0 Yes [id number] Apply to [facility] iamcinolone 7-06 area(s) 3 ity of cream 00:00: (three) [place] 00 times Medical daily. Branch nystatin-tr 2020-0 Yes [id number] Apply to [facility] iamcinolone 7-06 area(s) 3 ity of cream 00:00: (three) [place] 00 times Medical daily. Branch nystatin-tr 2020-0 Yes [id number] Apply to [facility] iamcinolone 7-06 area(s) 3 ity of cream 00:00: (three) [place] 00 times Medical daily. Branch budesonide- 2020- No 1{puff} QD Inhale 1 [facility] formoteroL 6-25 06-[address] (SYMBICORT) 14:37: 00:00 morning. [facility] 160-4.5 02 :00 l mcg/actuati on inhaler hydrALAZINE 2020-0 Yes [id number] 50mg Q.[id number] Take 1 [facility] (Apresoline 6-11 [id number] tablet (50 Health ) 50 MG 00:00: 3D mg total) tablet 00 by mouth 3 (three) times a day. hydrALAZINE 0 Yes [id number] 50mg Q.[id number] Take 1 [facility] (Apresoline 6-11 [id number] tablet (50 Health ) 50 MG 00:00: [...] 00:00: ointment 00 nystatin 2020-0 2021- No [id number] Q.25D Take 5 mL [facility] (MYCOSTATIN 5-17 [...] e 4-10 Tablet l 14:00: should not [place] 00 be chewed or crushed. (Same as: [...] e 4-10 Tablet l 14:00: should not [place] 00 be chewed or crushed. (Same as: [...] ia 4-10 (Same as: l 14:00: Zoloft) [facility] pantoprazol No Notes: Caesar lisa e 4-10 [...] ia 4-10 (Same as: l 14:00: Zoloft) [facility] 00 pantoprazol No Notes: Caesar lisa e 4-10 Tablet l 14:00: should not [place] 00 be chewed or crushed. (Same as: [...] ia 4-10 (Same as: l 14:00: Zoloft) [place] 00 pantoprazol No Notes: [facility] lisa e 4-10 Tablet l 14:00: should not [place] 00 be chewed or crushed. (Same as: Protonix) Amiodarone No Notes: Memor ia 4-10 (Same as: l 14:00: Cordarone) [facility] 00 Amlodipine No Notes: [facility] ia 4-10 (Same as: l 14:00: Norvasc) emtricitabi No Notes: Caesar lisa ne 200 MG / 4-10 (Same as: l tenofovir 14:00: Descovy) Herm ariel alafenamide 00 Non-formul 25 MG Oral nancy Tablet [Descovy] Sertraline No Notes: Memor ia 4-10 (Same as: l 14:00: Zoloft) pantoprazol No Notes: [facility] lisa e 4-10 Tablet l 14:00: should not [place] 00 be chewed or crushed. (Same as: [...] 0.9% 4-10 (Same as: l 02:00: BD [place] Posiflush) Eliquis No Notes: [facility] 4-10 Same as: l 02:00: Eliquis Marty 00 Hydralazine No Notes: Caesar lisa Hydrochlori 4-10 (Same as: l de 50 MG 02:00: Apresoline Her mitchell Oral Tablet 00 ) May interfere w/enteral feedings Take With Food Sucralfate No Notes: May M emoria 4-10 interfere l 02:00: w/enteral [place] 00 feeds - Take 1 hr before or 2 hr after antacids, dairy pdt, meals & minerals - On empty stomach. For patients unable to swallow tablet, dissolve in 10mL - 30mL of water or juice and stir before giving. (Same As: Carafate) Saline No Notes: [facility] Flush 0.9% 4-10 (Same as: l 02:00: BD [place] Posiflush) Eliquis No Notes: [facility] 4-10 Same as: l 02:00: Eliquis Marty Hydralazine No Notes: Caesar lisa Hydrochlori 4-10 (Same as: l de 50 MG 02:00: Apresoline Her mitchell Oral Tablet 00 ) May interfere w/enteral feedings Take With Food Sucralfate No Notes: May M emoria 4-10 interfere l 02:00: w/enteral [place] 00 feeds - Take 1 hr before [...] M emoria 4-10 interfere l 02:00: w/enteral [place] 00 feeds - Take 1 hr before [...] Memoria 4-10 Same as: l 02:00: Eliquis [place] Hydralazine No Notes: Caesar lisa Hydrochlori 4-10 [...] not exceed l #3 00:12: 4gm/day of [place] acetaminop hen. (Same as: Tylenol with Codeine # 3) acetaminoph No Notes: Do M emoria en-codeine 4-10 not exceed l #3 00:12: 4gm/day of [place] acetaminop hen. (Same as: Tylenol with Codeine [...] not exceed l #3 00:12: 4gm/day of [place] acetaminop hen. (Same as: Tylenol with Codeine [...] tartrate 4-09 tab, l 22:00: Route: PO, [facility] Drug form: TAB, BID, Dosing Weight 97.273, [...] oria 4-09 tab, l 22:00: Route: PO, [place] 00 Drug form: TAB, BID, Dosing Weight [...] l Tablet 22:00: Route: [facility] Drug form: TAB, BID, Dosing [...] oria 4-09 tab, l 22:00: Route: PO, [place] Drug form: TAB, BID, Dosing Weight 97.273, [...] oria 4-09 tab, l 22:00: Route: PO, [place] Drug form: TAB, BID, Dosing Weight 97.273, [...] 0 Buspirone 2021-0 No Notes: Memori a 4-09 (Same As: l 22:00: BuSpar) Marty Lisinopril No 40 mg, 1 Mem oria 4-09 tab, l 22:00: Route: PO, Marty 00 Drug form: TAB, BID, Dosing Weight 97.273, kg, Start date: 08/29/20 17:00:00 CDT, Duration: 30 day, Stop date: 09/28/20 9:00:00 CDT metoprolol No 100 mg, 1 Me moria tartrate 4-09 tab, l 22:00: Route: PO, [place] Drug form: TAB, BID, Dosing Weight 97.273, [...] Notes: Memoria 4-09 (Same l 17:07: as:MORPhin [place] 00 e Sulfate) Morphine No Notes: [facility]oria 4-09 (Same l 17:07: as:MORPhin [place] 00 e Sulfate) Morphine No Notes: [facility] 4-09 (Same l 17:07: as:MORPhin Marty 00 e Sulfate) Morphine No Notes: [facility] 4-09 (Same l 17:07: as:MORPhin [place] 00 e Sulfate) Morphine No Notes: Memoria 4-09 (Same l 17:07: as:MORPhin [place] 00 e Sulfate) Morphine No Notes: Memoria 4-09 (Same l 17:07: as:MORPhin [place] 00 e Sulfate) buPROPion 2021-0 No 150 [...] tab, PO, l oral 15:27: Daily, # [place] enteric 00 30 tab, 0 coated Refill(s), tablet Pharmacy: [facility] 149, 162.56, cm, 08/29/20 5:30:00 CDT, Height, 97.273, kg, 08/29/20 5:30:00 CDT, Weight pantoprazol 2021-0 Yes 40 mg = 1 M emoria e 40 mg 4-09 tab, PO, l oral 15:27: Daily, # [place] enteric 00 30 tab, 0 coated Refill(s), tablet Pharmacy: [facility] 149, 162.56, cm, 08/29/20 5:30:00 CDT, Height, 97.273, kg, 08/29/20 5:30:00 CDT, Weight pantoprazol 1-0 Yes 40 mg = 1 M emoria e 40 mg 4-09 tab, PO, l oral 15:27: Daily, # Marty enteric 00 30 tab, 0 coated Refill(s), tablet Pharmacy: [facility] 149, 162.56, cm, 08/29/20 5:30:00 CDT, Height, 97.273, kg, 08/29/20 5:30:00 CDT, Weight pantoprazol 2021-0 Yes 40 mg = 1 M emoria e 40 mg 4-09 tab, PO, l oral 15:27: Daily, # [place] enteric 00 30 tab, 0 coated Refill(s), tablet Pharmacy: [facility] 149, 162.56, cm, 08/29/20 5:30:00 CDT, Height, 97.273, kg, 08/29/20 5:30:00 CDT, Weight pantoprazol 2021-0 Yes 40 mg = 1 M emoria e 40 mg 4-09 tab, PO, l oral 15:27: Daily, # Marty enteric 00 30 tab, 0 coated Refill(s), tablet Pharmacy: [facility] 149, 162.56, cm, 08/29/20 5:30:00 CDT, Height, 97.273, kg, 08/29/20 5:30:00 CDT, Weight pantoprazol 2020-0 Yes 40 mg = 1 M emoria e 40 mg 4-09 tab, PO, l oral 15:27: Daily, # [place] enteric 00 30 tab, 0 coated Refill(s), tablet Pharmacy: [facility] 149, 162.56, cm, 08/29/20 5:30:00 CDT, Height, 97.273, kg, 08/29/20 5:30:00 CDT, Weight pantoprazol 2020-0 Yes 40 mg = 1 M emoria e 40 mg 4-09 tab, PO, l oral 15:27: Daily, # Marty enteric 00 30 tab, 0 coated Refill(s), tablet Pharmacy: [facility] 149, 162.56, cm, 08/29/20 5:30:00 CDT, Height, 97.273, kg, 08/29/20 5:30:00 CDT, Weight pantoprazol 2020-0 No 40 mg = 1 M emoria e 40 mg 4-09 tab, PO, l oral 15:26: Daily, # [place] enteric 00 30 tab, 0 coated Refill(s) tablet sucralfate 2020-0 Yes 1 gm = 1 Mem oria 1 g oral 4-09 tab, PO, l tablet 15:26: Q12H, # 28 Skylar nn 00 tab, 0 Refill(s), Pharmacy: [facility] 149, 162.56, cm, 08/29/20 5:30:00 [...] Skylar nn 00 tab, 0 Refill(s), Pharmacy: [facility] 149, 162.56, cm, 08/29/20 5:30:00 CDT, Height, 97.273, kg, 08/29/20 5:30:00 CDT, Weight pantoprazol 2020-0 No 40 mg = 1 M emoria e 40 mg 4-09 tab, PO, l oral 15:26: Daily, # [place] enteric 00 30 tab, 0 coated Refill(s) tablet sucralfate 2020-0 Yes 1 gm = 1 Mem oria 1 g oral 4-09 tab, PO, l tablet 15:26: Q12H, # 28 Skylar nn 00 tab, 0 Refill(s), Pharmacy: [facility] 149, 162.56, cm, 08/29/20 5:30:00 [...] Skylar nn 00 tab, 0 Refill(s), Pharmacy: [facility] 149, 162.56, cm, 08/29/20 5:30:00 [...] Skylar nn 00 tab, 0 Refill(s), Pharmacy: [facility] 149, 162.56, cm, 08/29/20 5:30:00 [...] Skylar nn 00 tab, 0 Refill(s), Pharmacy: [facility] 149, 162.56, cm, 08/29/20 5:30:00 CDT, Height, 97.273, kg, 08/29/20 5:30:00 CDT, Weight pantoprazol No 40 mg = 1 M emoria e 40 mg 4-09 tab, PO, l oral 15:26: Daily, # [place] enteric 00 30 tab, 0 coated Refill(s) tablet sucralfate Yes 1 gm = 1 Mem oria 1 g oral 4-09 tab, PO, l tablet 15:26: Q12H, # 28 Skylar nn 00 tab, 0 Refill(s), Pharmacy: [facility] 149, 162.56, cm, 08/29/20 5:30:00 CDT, Height, 97.273, kg, 08/29/20 5:30:00 CDT, Weight Saline No Notes: Memoria Flush 0.9% 4-09 (Same as: l 15:25: BD Marty Posiflush) Lorazepam No Notes: Memori a 4-09 (Same as: l 15:25: Ativan) Howard Saline No Notes: Memoria Flush 0.9% 4-09 (Same as: l 15:25: BD [place] 00 Posiflush) Lorazepam No Notes: Memori a 4-09 (Same as: l 15:25: Ativan) [place] Saline No Notes: Memoria Flush 0.9% 4-09 (Same as: l 15:25: BD Howard 00 Posiflush) Saline No Notes: Memoria Flush [...] a 4-09 (Same as: l 15:25: Ativan) Howard 00 Saline No Notes: Memoria Flush 0.9% 4-09 (Same as: l 15:25: BD [place] 00 Posiflush) Lorazepam No Notes: Memori a 4-09 (Same as: l 15:25: Ativan) Saline No Notes: Memoria Flush 0.9% 4-09 (Same as: l 15:25: BD Marty 00 Posiflush) Lorazepam No Notes: Memori a 4-09 (Same as: l 15:25: Ativan) Isuprel HCl No Route: IV, Memoria (ANES) 0.2 4 Drug form: l mg + 15:00: INJ, Howard 00 Dosing Weight 97.3, kg, Start date: 08/29/20 10:00:00 CDT, Stop date: 08/29/20 11:00:00 CDT Isuprel HCl No Route: IV, Memoria (ANES) 0.2 08-29 Drug form: l mg + 15:00: INJ, Howard Dosing Weight 97.3, kg, Start date: 08/29/20 [...] 08-29 Route: PO, l 14:01: Drug form: Howard 00 TAB, ONCE, Dosing Weight 97.273, kg, [...] oria ne 08-29 Route: l 14:01: IVP, Howard 00 Q5Min, Dosing Weight 97.273, kg, PRN [...] Memori a 08-29 Route: l 14:01: IVP, Howard 00 Q2MIN, Dosing Weight 97.273, kg, PRN Narcotic Reversal, Start date: 08/29/20 9:01:00 CDT, Duration: 8 doses or times, Stop date: Limited # of times Ondansetron 1-0 No 4 mg, Memor ia 08-29 Route: l 14:01: IVP, ONCE, Howard 00 Dosing Weight 97.273, kg, PRN Nausea [...] lisa 08-29 Route: l 14:01: IVP, PRN, Howard 00 Dosing Weight 97.273, kg, PRN Benzodiaze pine Reversal, Initial dose, Start date: 08/29/20 9:01:00 CDT, Duration: 30 day, Stop date: 09/28/20 9:00:00 CDT Naloxone 1-0 No 0.4 mg, Memori a 08-29 Route: l 14:01: IVP, Howard 00 Q2MIN, Dosing Weight 97.273, kg, PRN [...] 08-29 Route: PO, l 14:01: Drug form: Howard 00 TAB, ONCE, Dosing Weight 97.273, kg, [...] oria ne 08-29 Route: l 14:01: IVP, Howard 00 Q5Min, Dosing Weight 97.273, kg, PRN [...] ia 08-29 Route: l 14:01: IVP, ONCE, Howard 00 Dosing Weight 97.273, kg, PRN Nausea & Vomiting, Start date: 08/29/20 9:01:00 CDT Labetalol 2021-0 No 10 mg, Memori a 08-29 Route: l 14:01: IVP, [place] 00 Q5Min, Dosing Weight 97.273, kg, PRN Elevated BP, Start date: 08/29/20 9:01:00 CDT, Duration: 5 doses or times, Stop date: Limited # of times Acetaminoph 2021-0 No 1,000 mg, M emoria en 08-29 Route: PO, l 14:01: Drug form: Howard 00 TAB, ONCE, Dosing Weight 97.273, kg, [...] Memori a 08-29 Route: l 14:01: IVP, [place] 00 Q5Min, Dosing Weight 97.273, kg, PRN [...] oria ne 08-29 Route: l 14:01: IVP, Howard 00 Q5Min, Dosing Weight 97.273, kg, PRN [...] ia 4-09 Route: l 14:01: IVP, ONCE, Howard 00 Dosing Weight 97.273, kg, PRN Nausea [...] 08-29 Route: PO, l 14:01: Drug form: Howard 00 TAB, ONCE, Dosing Weight 97.273, kg, [...] Memori a 08-29 Route: l 14:01: IVP, [place] 00 Q2MIN, Dosing Weight 97.273, kg, PRN Narcotic Reversal, Start date: 08/29/20 9:01:00 CDT, Duration: 8 doses or times, Stop date: Limited # of times Ondansetron 1-0 No 4 mg, Memor ia 08-29 Route: l 14:01: IVP, ONCE, Howard Dosing Weight 97.273, kg, PRN Nausea & [...] 08-29 Route: PO, l 14:01: Drug form: Howard 00 TAB, ONCE, Dosing Weight 97.273, kg, [...] & Vomiting, Start date: 08/29/20 9:01:00 CDT dexamethaso No Route: IV, Memoria ne [...] 08-29 Drug form: l 13:42: INJ, ONCE, Howard 00 Stop date: 08/29/20 8:42:00 CDT fentaNYL 2020-0 No Route: IV, Mem oria (ANES) 08-29 Drug form: l 13:42: INJ, ONCE, Marty 00 Stop date: 08/29/20 8:42:00 CDT norepinephr 2020-0 No Route: IV, Memoria ine (ANES) 08-29 Drug form: l 10 13:15: INJ, Start Howard microgram date: 08/29/20 8:15:00 CDT, Stop date: 08/29/20 9:15:00 CDT norepinephr 2020-0 No Route: IV, Memoria ine (ANES) 08-29 Drug form: l 10 13:15: INJ, Start Howard microgram date: 08/29/20 8:15:00 CDT, Stop date: [...] Drug form: l 10 13:15: INJ, Start Howard microgram 00 date: 08/29/20 8:15:00 CDT, Stop [...] 4-09 Total l 0.9% IV 12:30: Volume: Howard (ANES) 1000 00 1,000, mL Start date: [...] PO, l Hydrochlori 11:42: Q24H, # 30 Howard de 150 MG 00 tab, 0 Extended [...] 4- Q12H, tab, l Tablet 11:41: 0 [place] [Eliquis] 00 Refill(s), For Atrial Fibrilatio n apixaban 2020-0 Yes 5 mg, PO, Me moria MG Oral 4- Q12H, tab, l Tablet 11:41: 0 Marty [Eliquis] 00 Refill(s), For Atrial Fibrilatio n apixaban 2020-0 Yes 5 mg, PO, Me moria MG Oral - Q12H, tab, l Tablet 11:41: 0 [place] [Eliquis] 00 Refill(s), For Atrial Fibrilatio n apixaban 5 2020-0 Yes 5 mg, PO, Me moria MG Oral 08-29 Q12H, tab, l Tablet 11:41: 0 [place] [Eliquis] 00 Refill(s), For Atrial Fibrilatio n apixaban 5 2020-0 Yes 5 mg, PO, Me moria MG Oral 08-29 Q12H, tab, l Tablet 11:41: 0 [place] [Eliquis] 00 Refill(s), For Atrial Fibrilatio n apixaban 5 2020-0 Yes 5 mg, PO, Me moria MG Oral 08-29 Q12H, tab, l Tablet 11:41: 0 [place] [Eliquis] 00 Refill(s), For Atrial Fibrilatio n AMIODarone 2020-0 Yes 200 mg = 1 M emoria 200 mg oral 08-29 tab, PO, l tablet 11:38: Daily, # Howard 00 90 tab, 3 Refill(s) AMIODarone 2020-0 Yes 200 mg = 1 M emoria 200 mg oral 08-29 tab, PO, l tablet 11:38: Daily, # Marty 00 90 tab, 3 Refill(s) AMIODarone 2020-0 Yes 200 mg = 1 M emoria 200 mg oral 08-29 tab, PO, l tablet 11:38: Daily, # [place] 00 90 tab, 3 Refill(s) AMIODarone 2020-0 Yes 200 mg = 1 M emoria 200 mg oral - tab, PO, l tablet 11:38: Daily, # Marty 00 90 tab, 3 Refill(s) AMIODarone 2020-0 Yes 200 mg = 1 M emoria 200 mg oral 4-09 tab, PO, l tablet 11:38: Daily, # [place] 00 90 tab, 3 Refill(s) AMIODarone 2020-0 [...] Eliquis 5 2020-0 Yes [facility] tablet [facility]: [facility] 00 l Eliquis 5 [...] tablet 08-16 00:00: Hospita l Eliquis 5 2020-0 Yes [facility] mg tablet 08-16 00:00: [facility]ospita 00 l Eliquis 5 2020-0 Yes [facility] mg tablet 08-16 00:00: [facility]ospita l Eliquis 5 2020-0 Yes [facility] mg tablet 08-16 00:00: [facility]ospita 00 l Eliquis 5 2020-0 Yes [facility] mg tablet 08-16 00:00: [facility]ospita 00 l Eliquis 5 2020-0 Yes [facility] mg tablet 08-16 00:00: [facility]ospita 00 l predniSONE 2020-0 Yes [...] %) solution solution for nebulizati on triamterene 2020-0 Yes 1{each} 1 each. [facility] [...] tablet 00 (two) times a day. DESCOVY 2017 Yes 1{tbl} QD Take 1 [...] [place] 65[place] PFIZER COVID-19 2020-07-23 Completed [employer] MRNA VACCINATION 00:00:00 [facility] PFIZER COVID-19 2020-07-23 Completed [facility] MRNA VACCINATION 00:00:00 [facility] PFIZER COVID-19 2020-07-23 Completed [facility] MRNA VACCINATION 00:00:00 [facility] PFIZER COVID-19 2020-07-23 Completed [facility] MRNA VACCINATION 00:00:00 [facility] PFIZER COVID-19 2020-07-23 Completed [facility] MRNA VACCINATION 00:00:00 [facility] PFIZER COVID-19 2020-07-23 Completed [facility] MRNA VACCINATION 00:00:00 [facility] PFIZER COVID-19 2020-07-23 Completed [facility] MRNA VACCINATION 00:00:00 [facility] PFIZER COVID-19 2020-07-23 Completed [facility] MRNA VACCINATION 00:00:00 [facility] PFIZER COVID-19 2020-07-23 Completed [facility] MRNA VACCINATION 00:00:00 [facility] PFIZER COVID-19 2020-07-23 Completed [facility] MRNA VACCINATION 00:00:00 [facility] PFIZER COVID-19 2020-07-23 Completed [facility] MRNA VACCINATION 00:00:00 [facility] PFIZER COVID-19 2020-07-23 Completed [facility] MRNA VACCINATION 00:00:00 [facility] PFIZER COVID-19 2020-07-23 Completed [facility] MRNA VACCINATION 00:00:00 [facility] PFIZER COVID-19 2020-07-23 Completed [facility] MRNA VACCINATION 00:00:00 [facility] PFIZER COVID-19 2020-07-23 Completed [facility] MRNA VACCINATION 00:00:00 [facility] SARS-COV-2 COVID-19 2020-07-23 Completed Unive rsity of PFIZER VACCINE 00:00:00 [facility] SARS-COV-2 COVID-19 2020-07-23 Completed Unive rsity of PFIZER VACCINE 00:00:00 [facility] SARS-COV-2 COVID-19 2020-07-23 Completed Unive rsity of PFIZER VACCINE 00:00:00 [facility] SARS-COV-2 COVID-19 2020-07-23 Completed Unive rsity of PFIZER VACCINE 00:00:00 [facility] PFIZER COVID-19 2020-07-23 Completed [facility] MRNA VACCINATION 00:00:00 [facility] PFIZER COVID-19 2020-07-02 Completed [facility] MRNA VACCINATION 00:00:00 [facility] PFIZER COVID-19 2020-07-02 Completed [facility] MRNA VACCINATION 00:00:00 [facility] PFIZER COVID-19 2020-07-02 Completed [facility] MRNA VACCINATION 00:00:00 [facility] PFIZER COVID-19 2020-07-02 Completed [facility] MRNA VACCINATION 00:00:00 [facility] PFIZER COVID-19 2020-07-02 Completed [facility] MRNA VACCINATION 00:00:00 [facility] PFIZER COVID-19 2020-07-02 Completed [facility] MRNA VACCINATION 00:00:00 [facility] PFIZER COVID-19 2020-07-02 Completed [facility] MRNA VACCINATION 00:00:00 Hospital PFIZER COVID-19 2020-07-02 Completed [facility] MRNA VACCINATION 00:00:00 [facility] PFIZER COVID-19 2020-07-02 Completed [facility] MRNA VACCINATION 00:00:00 Hospital PFIZER COVID-19 2020-07-02 Completed [facility] MRNA VACCINATION 00:00:00 Hospital PFIZER COVID-19 2020-07-02 Completed [facility] MRNA VACCINATION 00:00:00 [facility] PFIZER COVID-19 2020-07-02 Completed [facility] MRNA VACCINATION 00:00:00 Hospital PFIZER COVID-19 2020-07-02 Completed [facility] MRNA VACCINATION 00:00:00 [facility] PFIZER COVID-19 2020-07-02 Completed [facility] MRNA VACCINATION 00:00:00 [facility] PFIZER COVID-19 2020-07-02 Completed [facility] MRNA VACCINATION 00:00:00 [facility] SARS-COV-2 COVID-19 2020-07-02 Completed [facility] PFIZER VACCINE 00:00:00 [facility] SARS-COV-2 COVID-19 2020-07-02 Completed [facility] of PFIZER VACCINE 00:00:00 [facility] SARS-COV-2 COVID-19 2020-07-02 Completed [facility] of PFIZER VACCINE 00:00:00 [facility] SARS-COV-2 COVID-19 2020-07-02 Completed [facility] of PFIZER VACCINE 00:00:00 [facility] PFIZER COVID-19 2020-07-02 Completed [employer] MRNA VACCINATION 00:00:00 [facility] Influenza Virus 2017-03-08 Completed [facility] Vaccine 00:00:00 [facility] Influenza Virus 2017-03-08 Completed [facility] Vaccine 00:00:00 [facility] Influenza Virus 2017-03-08 Completed [facility] Vaccine 00:00:00 [facility] Influenza Virus 2017-03-08 Completed [facility] Vaccine 00:00:00 [facility] Influenza Virus 2017-03-08 Completed [facility] Vaccine 00:00:00 [facility] Influenza Virus 2017-03-08 Completed [facility] Vaccine 00:00:00 [facility] Influenza Virus 2017-03-08 Completed [facility] Vaccine 00:00:00 [facility] Influenza Virus 2017-03-08 Completed [facility] Vaccine 00:00:00 [facility] Influenza Virus 2014-01-30 Completed [facility] of Vaccine (3+ yrs) 00:00:00 [facility] Pneumococcal 13 2014-01-30 Completed Universit y of Conjugate, PCV13 00:00:[address] [facility] dical (Prevnar 13) Branch Influenza Virus 2014-01-30 Completed Universit y of Vaccine (3+ yrs) 00:00:00 [facility] Pneumococcal 13 2014-01-30 Completed Universit y of Conjugate, PCV13 00:00:[address] [facility] dical (Prevnar 13) Branch Influenza Virus 2014-01-30 Completed Universit y of Vaccine (3+ yrs) 00:00:00 [facility] Branch Pneumococcal 13 2014-01-30 Completed Universit y of Conjugate, PCV13 00:00:[address] [facility] dical (Prevnar 13) Branch Influenza Virus 2014-01-30 Completed Universit y of Vaccine (3+ yrs) 00:00:00 [facility] Pneumococcal 13 2014-01-30 Completed Universit y of Conjugate, PCV13 00:00:[address] [facility] dical (Prevnar 13) Branch Influenza Virus 2014-01-30 Completed Universit y of Vaccine (3+ yrs) 00:00:00 [facility] Pneumococcal 13 2014-01-30 Completed Universit y of Conjugate, PCV13 00:00:[address] [facility] dical (Prevnar 13) Branch Influenza Virus 2014-01-30 Completed Universit y of Vaccine (3+ yrs) 00:00:00 [facility] Pneumococcal 13 2014-01-30 Completed Universit y of Conjugate, PCV13 00:00:[address] [facility] dical (Prevnar 13) Branch Influenza Virus 2014-01-30 Completed Universit y of Vaccine (3+ yrs) 00:00:00 [facility] Pneumococcal 13 2014-01-30 Completed Universit y of Conjugate, PCV13 00:00:[address] [facility] dical (Prevnar 13) Branch Influenza Virus 2014-01-30 Completed Universit y of Vaccine (3+ yrs) 00:00:00 [facility] Pneumococcal 13 2014-01-30 Completed Universit y of Conjugate, PCV13 00:00:[address] [facility] dical (Prevnar 13) Branch Pneumococcal 2012-02-16 Completed University o f Polysaccharide, 00:00:00 [place] [facility] PPSV23 (PNEUMOVAX) Branch Influenza Virus 2012-02-16 Completed Universit y of Vaccine 00:00:00 [facility] PPD (TB) 2012-02-16 Completed University of 00:00:00 [facility] Pneumococcal 2012-02-16 Completed University o f Polysaccharide, 00:00:00 [place] [facility] PPSV23 (PNEUMOVAX) Branch Influenza Virus 2012-02-16 Completed Universit y of Vaccine 00:00:00 [facility] PPD (TB) 2012-02-16 Completed University of 00:00:00 [facility] Pneumococcal 2012-02-16 Completed University o f Polysaccharide, 00:00:00 [place] [facility] PPSV23 (PNEUMOVAX) Branch Influenza Virus 2012-02-16 Completed Universit y of Vaccine 00:00:00 [facility] PPD (TB) 2012-02-16 Completed University of 00:00:00 [facility] Pneumococcal 2012-02-16 Completed University o f Polysaccharide, 00:00:00 [place] [facility] PPSV23 (PNEUMOVAX) Branch Influenza Virus 2012-02-16 Completed Universit y of Vaccine 00:00:00 [facility] PPD (TB) 2012-02-16 Completed University of 00:00:00 [facility] Pneumococcal 2012-02-16 Completed University o f Polysaccharide, 00:00:00 [place] [facility] PPSV23 (PNEUMOVAX) Branch Influenza Virus 2012-02-16 Completed Universit y of Vaccine 00:00:00 [facility] PPD (TB) 2012-02-16 Completed University of 00:00:00 [facility] Pneumococcal 2012-02-16 Completed University o f Polysaccharide, 00:00:00 [place] [facility] PPSV23 (PNEUMOVAX) Branch Influenza Virus 2012-02-16 Completed Universit y of Vaccine 00:00:00 [facility] PPD (TB) 2012-02-16 Completed University of 00:00:00 [facility] Pneumococcal 2012-02-16 Completed University o f Polysaccharide, 00:00:00 [place] [facility] PPSV23 (PNEUMOVAX) Branch Influenza Virus 2012-02-16 Completed Universit y of Vaccine 00:00:00 [facility] PPD (TB) 2012-02-16 Completed University of 00:00:00 [facility] Pneumococcal 2012-02-16 Completed University o f Polysaccharide, 00:00:00 [facility] PPSV23 (PNEUMOVAX) Branch Influenza Virus 2012-02-16 Completed Universit y of Vaccine 00:00:00 [facility] PPD (TB) 2012-02-16 Completed University of 00:00:00 [facility] Hep B, Adol or Pedi 2011-09-01 Completed Unive rsity of Dosage 00:00:00 [facility] Hep B, Adol or Pedi 2011-09-01 Completed Unive rsity of Dosage 00:00:00 [facility] Hep B, Adol or Pedi 2011-09-01 Completed Unive rsity of Dosage 00:00:00 [facility] Hep B, Adol or Pedi 2011-09-01 Completed Unive rsity of Dosage 00:00:00 [facility] Hep B, Adol or Pedi 2011-09-01 Completed Unive rsity of Dosage 00:00:00 [facility] Hep B, Adol or Pedi 2011-09-01 Completed Unive rsity of Dosage 00:00:00 [facility] Hep B, Adol or Pedi 2011-09-01 Completed Unive rsity of Dosage 00:00:00 [facility] Hep B, Adol or Pedi 2011-09-01 Completed Unive rsity of Dosage 00:00:00 [facility] Hep B, Adol or Pedi 2011-03-17 Completed Unive rsity of Dosage 00:00:00 [facility] Hep B, Adol or Pedi 2011-03-17 Completed Unive rsity of Dosage 00:00:00 [facility] Hep B, Adol or Pedi 2011-03-17 Completed Unive rsity of Dosage 00:00:00 [facility] Hep B, Adol or Pedi 2011-03-17 Completed Unive rsity of Dosage 00:00:00 [facility] Hep B, Adol or Pedi 2011-03-17 Completed Unive rsity of Dosage 00:00:00 [facility] Hep B, Adol or Pedi 2011-03-17 Completed Unive rsity of Dosage 00:00:00 [facility] Hep B, Adol or Pedi 2011-03-17 Completed Unive rsity of Dosage 00:00:00 [facility] Hep B, Adol or Pedi 2011-03-17 Completed Unive rsity of Dosage 00:00:00 [facility] Influenza Virus 2011-02-10 Completed Universit y of Vaccine 00:00:00 [facility] Hep B, Adol or Pedi 2011-02-10 Completed Unive rsity of Dosage 00:00:00 [facility] Influenza Virus 2011-02-10 Completed Universit y of Vaccine 00:00:00 [facility] Hep B, Adol or Pedi 2011-02-10 Completed Unive rsity of Dosage 00:00:00 [facility] Influenza Virus 2011-02-10 Completed Universit y of Vaccine 00:00:00 [facility] Hep B, Adol or Pedi 2011-02-10 Completed Unive rsity of Dosage 00:00:00 [facility] Influenza Virus 2011-02-10 Completed Universit y of Vaccine 00:00:00 [facility] Hep B, Adol or Pedi 2011-02-10 Completed Unive rsity of Dosage 00:00:00 [facility] Influenza Virus 2011-02-10 Completed Universit y of Vaccine 00:00:00 [facility] Hep B, Adol or Pedi 2011-02-10 Completed Unive rsity of Dosage 00:00:00 [facility] Influenza Virus 2011-02-10 Completed Universit y of Vaccine 00:00:00 [facility] Hep B, Adol or Pedi 2011-02-10 Completed Unive rsity of Dosage 00:00:00 [facility] Influenza Virus 2011-02-10 Completed Universit y of Vaccine 00:00:00 [facility] Hep B, Adol or Pedi 2011-02-10 Completed Unive rsity of Dosage 00:00:00 [facility] Influenza Virus 2011-02-10 Completed Universit y of Vaccine 00:00:00 [facility] Hep B, Adol or Pedi 2011-02-10 Completed Unive rsity of Dosage 00:00:00 [facility] PPD (TB) 2010-11-18 Completed University of 00:00:00 [facility] TDAP (ADACEL) 2010-11-18 Completed University of VACCINE 00:00:00 [facility] PPD (TB) 2010-11-18 Completed University of 00:00:00 [facility] TDAP (ADACEL) 2010-11-18 Completed University of VACCINE 00:00:00 [facility] PPD (TB) 2010-11-18 Completed University of 00:00:00 [facility] TDAP (ADACEL) 2010-11-18 Completed University of VACCINE 00:00:00 [facility] PPD (TB) 2010-11-18 Completed University of 00:00:00 [facility] TDAP (ADACEL) 2010-11-18 Completed University of VACCINE 00:00:00 [facility] PPD (TB) 2010-11-18 Completed University of 00:00:00 [facility] TDAP (ADACEL) 2010-11-18 Completed University of VACCINE 00:00:00 [facility] PPD (TB) 2010-11-18 Completed University of 00:00:00 [facility] TDAP (ADACEL) 2010-11-18 Completed University of VACCINE 00:00:00 [facility] PPD (TB) 2010-11-18 Completed University of 00:00:00 [facility] TDAP (ADACEL) 2010-11-18 Completed University of VACCINE 00:00:00 [facility] PPD (TB) 2010-11-18 Completed University of 00:00:00 [facility] TDAP (ADACEL) 2010-11-18 Completed University of VACCINE 00:00:00 [facility] HEPATITIS A 2004-03-02 Completed University of 00:00:00 [facility] HEPATITIS A 2004-03-02 Completed University of 00:00:00 [facility] HEPATITIS A 2004-03-02 Completed University of 00:00:00 [facility] HEPATITIS A 2004-03-02 Completed University of 00:00:00 [facility] HEPATITIS A 2004-03-02 Completed University of 00:00:00 [facility] HEPATITIS A 2004-03-02 Completed University of 00:00:00 [facility] HEPATITIS A 2004-03-02 Completed University of 00:00:00 [facility] HEPATITIS A 2004-03-02 Completed University of 00:00:00 [facility] HEPATITIS A 2003-08-01 Completed University of 00:00:00 [facility] HEPATITIS A 2003-08-01 Completed University of 00:00:00 [facility] HEPATITIS A 2003-08-01 Completed University of 00:00:00 [facility] HEPATITIS A 2003-08-01 Completed University of 00:00:00 [facility] HEPATITIS A 2003-08-01 Completed University of 00:00:00 [facility] HEPATITIS A 2003-08-01 Completed University of 00:00:00 [facility] HEPATITIS A 2003-08-01 Completed University of 00:00:00 [facility] HEPATITIS A 2003-08-01 Completed University of 00:00:00 [facility] Pneumococcal 2001-10-04 Completed University o f Polysaccharide, 00:00:00 [place] [facility] PPSV23 (PNEUMOVAX) Branch PPD (TB) 2001-10-04 Completed University of 00:00:00 [facility] Pneumococcal 2001-10-04 Completed University o f Polysaccharide, 00:00:00 [place] [facility] PPSV23 (PNEUMOVAX) Branch PPD (TB) 2001-10-04 Completed University of 00:00:00 [facility] Pneumococcal 2001-10-04 Completed University o f Polysaccharide, 00:00:00 [place] [facility] PPSV23 (PNEUMOVAX) Branch PPD (TB) 2001-10-04 Completed University of 00:00:00 [facility] Pneumococcal 2001-10-04 Completed University o f Polysaccharide, 00:00:00 [place] [facility] PPSV23 (PNEUMOVAX) Branch PPD (TB) 2001-10-04 Completed University of 00:00:00 [facility] Pneumococcal 2001-10-04 Completed University o f Polysaccharide, 00:00:00 [place] [facility] PPSV23 (PNEUMOVAX) Branch PPD (TB) 2001-10-04 Completed University of 00:00:00 [facility] Pneumococcal 2001-10-04 Completed University o f Polysaccharide, 00:00:00 [place] [facility] PPSV23 (PNEUMOVAX) Branch PPD (TB) 2001-10-04 Completed University of 00:00:00 [facility] Pneumococcal 2001-10-04 Completed University o f Polysaccharide, 00:00:00 [place] [facility] PPSV23 (PNEUMOVAX) Branch PPD (TB) 2001-10-04 Completed University of 00:00:00 [facility] Pneumococcal 2001-10-04 Completed University o f Polysaccharide, 00:00:00 [place] [facility] PPSV23 (PNEUMOVAX) Branch PPD (TB) 2001-10-04 Completed University of 00:00:00 [facility] Vital Signs Vital Name Observation Time Observation Value Comments Source Systolic blood 2022-02-16 21:41:00 169 mm[Hg] Univer sity of pressure [facility] Diastolic blood 2022-02-16 21:41:00 86 mm[Hg] Unive rsity of pressure [facility] Heart rate 2022-02-16 21:41:00 51 /min Universi ty of [facility] Body temperature 2022-02-16 21:41:00 36.56 Amina Univ ersity of [facility] Respiratory rate 2022-02-16 21:41:00 17 /min [facility] Oxygen saturation in 2022-02-16 21:41:00 98 /min [facility] Arterial blood by [facility] Pulse oximetry Branch Body height 2022-02-11 16:02:00 162.6 cm Universi ty of [facility] Body weight 2022-02-11 16:02:00 79.379 kg Universi ty of [facility] BMI 2022-02-11 16:02:00 30.04 kg/m2 Universi ty of [facility] Systolic blood 2021-11-20 13:47:00 165 mm[Hg] Univer sity of pressure [facility] Diastolic blood 2021-11-20 13:47:00 83 mm[Hg] Unive rsity of pressure [facility] Heart rate 2021-11-20 13:47:00 58 /min Universi ty of [facility] Body temperature 2021-11-20 13:42:00 36.39 Amina Univ ersity of [facility] Respiratory rate 2021-11-20 13:42:00 16 /min Univ ersity of [facility] Body height 2021-11-20 13:42:00 162.6 cm Universi ty of [facility] Body weight 2021-11-20 13:42:00 84.369 kg [facility]i [facility] [place] [facility] BMI 2021-11-20 13:42:00 31.93 kg/m2 Universi ty of [facility] Systolic blood 2021-07-14 15:18:00 142 mm[facility]Hg[facility] Diastolic blood 2021-07-14 15:18:00 76 mm[Hg] [facility] Heart rate 2021-07-14 15:18:00 61 [facility] 2021-07-14 15:18:00 [facility]6 [facility] weight 2021-07-14 15:18:00 [facility]802 [facility] BMI 2021-07-14 15:18:00 35.87 kg/m2 [facility] Systolic blood 2022-03-05 15:23:00 167 mm[Hg] Univer sity of pressure [facility] Diastolic blood 2022-03-05 15:23:00 105 mm[Hg] Unive rsity of [facility] Heart rate 2022-03-05 15:23:00 49 /min Universi [facility] Body temperature 2022-03-05 15:18:00 36.67 Amina [facility] 2022-03-05 15:18:00 18 /min [facility] Body height 2022-03-05 15:18:00 [facility]6 [facility] Body weight 2022-03-05 15:18:00 74.707 kg [facility] BMI 2022-03-05 15:18:00 28.27 kg/m2 [facility] Oxygen saturation in 2022-02-16 21:41:00 98 /min University Arterial blood by [facility] Pulse oximetry [place] Systolic blood 2020-12-08 15:48:00 125 mm[Hg] [facility] pressure Diastolic blood 2020-12-08 15:48:00 76 mm[Hg] [facility] pressure Heart rate 2020-12-08 15:48:00 64 /min [facility] Body temperature 2020-12-08 15:48:00 36.61 Amina [facility] Respiratory rate 2020-12-08 15:48:00 17 /min [facility] Body height 2020-12-08 15:48:00 162.6 cm [facility] Body weight 2020-12-08 15:48:00 98.884 kg [facility] BMI 2020-12-08 15:48:00 37.42 kg/m2 [facility] Oxygen saturation in 2020-12-08 15:48:00 97 /min [facility] Arterial blood by Pulse oximetry Respitory Rate 2020-08-30 13:00:00 [place] Hammond Systolic (mm Hg) 2020-08-30 13:00:00 Caesar Ferguson Diastolic (mm Hg) 2020-08-30 13:00:00 Mem orial Marty Systolic (mm Hg) 2020-08-30 11:00:00 Caesar rial Marty Diastolic (mm Hg) 2020-08-30 11:00:00 Mem orial Marty Temperature Oral (F) 2020-08-30 11:00:00 98.4 F [facility] Respitory Rate 2020-08-30 11:00:00 Memori al [facility] Respitory Rate 2020-08-30 10:00:00 Memori al [facility] Systolic (mm Hg) 2020-08-30 10:00:00 Caesar rial Marty Diastolic (mm Hg) 2020-08-30 10:00:00 Mem orial Marty Temperature Oral (F) 2020-08-30 00:00:00 96.9 F [facility] Temperature Oral (F) 2020-08-29 11:26:00 [facility]6 [facility] 2020-08-29 10:30:00 162.56 cm [facility] Weight 2020-08-29 10:30:00 [facility] BMI Calculated 2020-08-29 10:30:00 [place] [facility] Procedures Procedure Date / Time Performing Clinician Source Performed SARS-COV-2 COVID-19 2022-03-05 16:09:27 [facility] DIMITRIS-SUCROSE VACCINE 12 [facility] Branch YRS+, BIVALENT 0.3ML, IM, (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) FLU 2022-03-05 16:09:27 [facility] o f [place] VACC(),65+YR,0.5 Medica l Branch ML,IM,ADJUVANTED,QUAD(FLUA D) MAGNESIUM 2022-02-15 09:41:00 Sofia Garcia [facility] BASIC METABOLIC PANEL (NA, 2022-02-15 09:41:00 Sofia Garcia [facility] K, CL, CO2, GLUCOSE, BUN, Medica l Branch CREATININE, CA) CBC WITH DIFF 2022-02-15 09:41:00 Sofia Garcia [facility] N-TERMINAL PRO-BNP 2022-02-15 09:41:00 Sofia Garcia [facility] CBC WITH DIFF 2022-02-15 09:41:00 Sofia Garcia [facility] BASIC METABOLIC PANEL (NA, 2022-02-15 09:41:00 Radha [facility] K, CL, CO2, GLUCOSE, BUN, Medica l Branch CREATININE, CA) MAGNESIUM 2022-02-15 09:41:00 [facility]-BNP 2022-02-15 09:41:00 Sofia Garcia [facility] BASIC METABOLIC PANEL (NA, 2022-02-13 09:40:00 Radha [facility] K, CL, CO2, GLUCOSE, BUN, Medica l Branch CREATININE, CA) CBC WITH DIFF 2022-02-13 09:40:00 Radha [facility] BASIC METABOLIC PANEL (NA, 2022-02-13 09:40:00 Radha [facility] K, CL, CO2, GLUCOSE, BUN, Medica l Branch CREATININE, CA) CBC WITH DIFF 2022-02-13 09:40:00 Radha [facility] TROPONIN I 2022-02-11 23:41:00 Radha [facility] N-TERMINAL PRO-BNP 2022-02-11 23:41:00 Sofia Garcia [facility] TROPONIN I 2022-02-11 23:41:00 Radha [facility] N-TERMINAL PRO-BNP 2022-02-11 23:41:00 Sofia Garcia [facility] HB ECG ROUTINE & RHYTHM 2022-02-11 22:15:36 [facility] TRANSTHORACIC ECHO (TTE) 2022-02-11 21:26:50 [facility] (TTE) 2022-02-11 21:26:50 [facility] 2022-02-11 07:45:43 Reilly Means [facility] CT ABDOMEN PELVIS W 2022-02-11 07:45:43 Reilly Means [facility] RAPID INFLUENZA A/B 2022-02-11 06:54:00 Reilly Means [facility] RAPID INFLUENZA A/B 2022-02-11 06:54:00 Reilly Means [facility] URINALYSIS 2022-02-11 06:45:00 Reilly Means [facility] URINE CULTURE 2022-02-11 06:45:00 Reilly Means [facility] URINALYSIS 2022-02-11 06:45:00 Reilly Means [facility] URINE CULTURE 2022-02-11 06:45:00 Reilly Means [facility] HB ECG ROUTINE & RHYTHM 2022-02-11 05:22:08 Reilly Means [facility] HB ECG ROUTINE & RHYTHM 2022-02-11 05:22:08 Reilly Means [facility] BLOOD CULTURE SCREEN 2022-02-11 04:58:00 Reilly Means [facility] TROPONIN I 2022-02-11 04:58:00 Reilly Means [facility] COMP. METABOLIC PANEL 2022-02-11 04:58:00 Reilly Means [facility] ([id number]) Medical Branch CBC WITH DIFF 2022-02-11 04:58:00 Reilly Means [facility] PROTHROMBIN TIME / INR 2022-02-11 04:58:00 Reilly Means [facility] ACTIVATED PARTIAL THRMPLAS 2022-02-11 04:58:00 Reilly Means [facility] N-TERMINAL PRO-BNP 2022-02-11 04:58:00 Reilly Means [facility] LACTIC ACID WHOLE BLOOD 2022-02-11 04:58:00 Reilly Means [facility] COVID-19 (ID NOW RAPID 2022-02-11 04:58:00 Reilly Means [facility] TESTING) Medical Branch LAB ONLY COVID 2022-02-11 04:58:00 Reilly Means [facility] CBC WITH DIFF 2022-02-11 04:58:00 Reilly Means [facility] ACTIVATED PARTIAL THRMPLAS 2022-02-11 04:58:00 Reilly Means [facility] AMADOU [facility] PROTHROMBIN TIME / INR 2022-02-11 04:58:00 Reilly Means [facility] COVID-19 (ID NOW RAPID 2022-02-11 04:58:00 Reilly Means [facility] TESTING) Medical Branch COMP. METABOLIC PANEL 2022-02-11 04:58:00 Reilly Means [facility] ([id number]) [facility] [place] TROPONIN I 2022-02-11 04:58:00 Reilly Means [facility] N-TERMINAL PRO-BNP 2022-02-11 04:58:00 Reilly Means [facility] BLOOD CULTURE SCREEN 2022-02-11 04:58:00 Reilly Means [facility] LACTIC ACID WHOLE BLOOD 2022-02-11 04:58:00 Reilly Means [facility] LAB ONLY COVID 2022-02-11 04:58:00 Reilly Means [facility] XR CHEST 1 VW 2022-02-11 04:27:[address] [facility] XR CHEST 1 VW 2022-02-11 04:27:42 Miguelangel Reilly [facility] HOSPITAL ADMISSION 2022-02-10 05:01:00 Doctor Unassigned, [facility] Name [facility] [place] HOSPITAL ADMISSION 2022-02-10 05:01:00 Doctor Unassigned, [facility] ECG 12-LEAD 2021-07-14 15:14:00 Elan Lira [facility] [id number] 2021-06-17 00:00:00 RASSMaria Elena [facility] GASTROINTESTINAL PANEL 2020-12-08 22:21:00 Eliseo Arce [facility] XR ABDOMEN 1 VW 2020-12-08 18:06:32 Eliseo Arce spital OR [place] < 1 HOUR 2020-09-05 22:39:00 Eliseo Arce Ho spital SURGICAL PATHOLOGY REQUEST 2020-09-05 21:54:00 Eliseo Arce [facility] XR CHEST 1 VW PORTABLE 2020-09-05 19:55:00 Eliseo Arce [facility] DISCHARGE PATIENT 2020-09-05 17:27:55 Lucas Harris [facility] [place] AN ELECTIVE 2020-09-05 16:47:23 Kirit Flood [facility] ENDOTRACHEAL AIRWAY EGD, INTRAOPERATIVE 2020-09-05 16:27:00 [facility] 2020-09-05 15:04:00 Sarai Maharaj [facility] TIME (PTT) M. PROTHROMBIN TIME WITH INR 2020-09-05 15:04:00 Mindy Maharaj [facility] M. Plan of Care Planned Activity Planned Date Details Comments Source Future Scheduled 2022-03-25 SHINGLES VACCINES ([address] [facility] Test 14:48:42 of 2) [code = SHINGLES VACCINES (1 of 2)] Future Scheduled 2022-03-25 BREAST CANCER [facility] Test 14:48:42 SCREENING [code = BREAST CANCER SCREENING] Future Scheduled 2022-03-25 COLONOSCOPY SCREENING [facility] Test 14:48:42 [code = COLONOSCOPY SCREENING] Future Scheduled 2022-03-25 HEPATITIS B VACCINES [facility] Test 14:48:42 (1 of 3 - Risk 3-dose series) [code = HEPATITIS B VACCINES (1 of 3 - Risk 3-dose series)] Future Scheduled 2022-03-25 COVID-19 VACCINE (3 - [facility] Test 14:48:42 Booster for Pfizer series) [code = COVID-19 VACCINE (3 - Booster for Pfizer series)] Future Scheduled 2022-03-25 65+ PNEUMOCOCCAL [facility] Test 14:48:42 VACCINE (4 - PPSV23 if available, else PCV20) [code = 65+ PNEUMOCOCCAL VACCINE (4 - PPSV23 if available, else PCV20)] Future Scheduled 2022-03-25 INFLUENZA VACCINE Method [facility] Test 14:48:42 [code = INFLUENZA VACCINE] Future Scheduled 2022-03-25 SHINGLES VACCINES ([address] [facility] Test 14:48:42 of 2) [code = SHINGLES VACCINES (1 of 2)] Future Scheduled 2022-03-25 BREAST CANCER [facility] Test 14:48:42 SCREENING [code = BREAST CANCER SCREENING] Future Scheduled 2022-03-25 COLONOSCOPY SCREENING Me [facility] Test 14:48:42 [code = COLONOSCOPY SCREENING] Future Scheduled 2022-03-25 HEPATITIS B VACCINES Met [facility] Test 14:48:42 (1 of 3 - Risk 3-dose series) [code = HEPATITIS B VACCINES (1 of 3 - Risk 3-dose series)] Future Scheduled 2022-03-25 COVID-19 VACCINE (3 - Me [facility] Test 14:48:42 Booster for Pfizer series) [code = COVID-19 VACCINE (3 - Booster for Pfizer series)] Future Scheduled 2022-03-25 65+ [facility] Test 14:48:42 VACCINE (4 - PPSV23 if available, else PCV20) [code = 65+ PNEUMOCOCCAL VACCINE (4 - PPSV23 if available, else PCV20)] Future Scheduled 2022-03-25 INFLUENZA VACCINE Method [facility] Test 14:48:42 [code = INFLUENZA VACCINE] Future Scheduled 2022-03-25 SHINGLES VACCINES (1 Met [facility] Test 14:48:42 of 2) [code = SHINGLES VACCINES (1 of 2)] Future Scheduled 2022-03-25 BREAST CANCER [facility] Test 14:48:42 SCREENING [code = BREAST CANCER SCREENING] Future Scheduled 2022-03-25 COLONOSCOPY SCREENING Me [facility] Test 14:48:42 [code = COLONOSCOPY SCREENING] Future Scheduled 2022-03-25 HEPATITIS B VACCINES Met [facility] Test 14:48:42 (1 of 3 - Risk 3-dose series) [code = HEPATITIS B VACCINES (1 of 3 - Risk 3-dose series)] Future Scheduled 2022-03-25 COVID-19 VACCINE (3 - Me [facility] Test 14:48:42 Booster for Pfizer series) [code = COVID-19 VACCINE (3 - Booster for Pfizer series)] Future Scheduled 2022-03-25 65+ [facility]CCAL [facility] Test 14:48:42 VACCINE (4 - PPSV23 if available, else PCV20) [code = 65+ PNEUMOCOCCAL VACCINE (4 - PPSV23 if available, else PCV20)] Future Scheduled 2022-03-25 INFLUENZA VACCINE [facility] Test 14:48:42 [code = INFLUENZA VACCINE] Future Scheduled 2022-03-04 SHINGLES VACCINES (1 [facility] Test 14:03:57 of 2) [code = SHINGLES VACCINES (1 of 2)] Future Scheduled 2022-03-04 BREAST CANCER [facility] Test 14:03:57 SCREENING [code = BREAST CANCER SCREENING] Future Scheduled 2022-03-04 COLONOSCOPY SCREENING [facility] Test 14:03:57 [code = COLONOSCOPY SCREENING] Future Scheduled 2022-03-04 HEPATITIS B VACCINES Met [facility] Test 14:03:57 (1 of 3 - Risk 3-dose series) [code = HEPATITIS B VACCINES (1 of 3 - Risk 3-dose series)] Future Scheduled 2022-03-04 COVID-19 VACCINE (3 - [facility] Test 14:03:57 Booster for Pfizer series) [code = COVID-19 VACCINE (3 - Booster for Pfizer series)] Future Scheduled 2022-03-04 65+ PNEUMOCOCCAL [facility] Test 14:03:57 VACCINE (4 - PPSV23 if available, else PCV20) [code = 65+ PNEUMOCOCCAL VACCINE (4 - PPSV23 if available, else PCV20)] Future Scheduled 2022-03-04 INFLUENZA VACCINE Method [facility] Test 14:03:57 [code = INFLUENZA VACCINE] Future Scheduled 2022-03-04 SHINGLES VACCINES ([address] [facility] Test 14:03:57 of 2) [code = SHINGLES VACCINES (1 of 2)] Future Scheduled 2022-03-04 BREAST CANCER [facility] Test 14:03:57 SCREENING [code = BREAST CANCER SCREENING] Future Scheduled 2022-03-04 COLONOSCOPY SCREENING [facility] Test 14:03:57 [code = COLONOSCOPY SCREENING] Future Scheduled 2022-03-04 HEPATITIS B VACCINES Met [facility] Test 14:03:57 (1 of 3 - Risk [...] PCV20)] Future Scheduled 2022-03-04 INFLUENZA VACCINE Method [facility] Test 14:03:57 [code = INFLUENZA VACCINE] Future Scheduled 2022-03-04 SHINGLES VACCINES ([address] [facility] Test 14:03:57 of 2) [code = SHINGLES VACCINES (1 of 2)] Future Scheduled 2022-03-04 BREAST CANCER [facility] Test 14:03:57 SCREENING [code = BREAST CANCER SCREENING] Future Scheduled 2022-03-04 COLONOSCOPY SCREENING [facility] Test 14:03:57 [code = COLONOSCOPY SCREENING] Future Scheduled 2022-03-04 HEPATITIS B VACCINES Met [facility] Test 14:03:57 (1 of 3 - Risk 3-dose series) [code = HEPATITIS B VACCINES (1 of 3 - Risk 3-dose series)] Future Scheduled 2022-03-04 COVID-19 VACCINE (3 - Me [facility] Test 14:03:57 Booster for Pfizer series) [code = COVID-19 VACCINE (3 - Booster for Pfizer series)] Future Scheduled 2022-03-04 65+ [facility]OCOCCAL [facility] Test 14:03:57 VACCINE (4 - PPSV23 if available, else PCV20) [code = 65+ PNEUMOCOCCAL VACCINE (4 - PPSV23 if available, else PCV20)] Future Scheduled 2022-03-04 INFLUENZA VACCINE Method [facility] Test 14:03:57 [code = INFLUENZA VACCINE] Future Scheduled 2022-03-04 SHINGLES VACCINES ([address] [facility] Test 14:03:57 of 2) [code = SHINGLES VACCINES (1 of 2)] Future Scheduled 2022-03-04 BREAST CANCER [facility] Test 14:03:57 SCREENING [code = BREAST CANCER SCREENING] Future Scheduled 2022-03-04 COLONOSCOPY SCREENING [facility] Test 14:03:57 [code = COLONOSCOPY SCREENING] Future Scheduled 2022-03-04 HEPATITIS B VACCINES Met [facility] Test 14:03:57 (1 of 3 - Risk 3-dose series) [code = HEPATITIS B VACCINES (1 of 3 - Risk 3-dose series)] Future Scheduled 2022-03-04 COVID-19 VACCINE (3 - Me [facility] Test 14:03:57 Booster for Pfizer series) [code = COVID-19 VACCINE (3 - Booster for Pfizer series)] Future Scheduled 2022-03-04 65+ PNEUMOCOCCAL [facility] Test 14:03:57 VACCINE (4 - PPSV23 if available, else PCV20) [code = 65+ PNEUMOCOCCAL VACCINE (4 - PPSV23 if available, else PCV20)] Future Scheduled 2022-03-04 INFLUENZA VACCINE Method [facility] Test 14:03:57 [code = INFLUENZA VACCINE] Future Scheduled 2022-02-11 SHINGLES VACCINES ([address] [facility] Test 13:39:12 of 2) [code = SHINGLES VACCINES (1 of 2)] Future Scheduled 2022-02-11 BREAST CANCER [facility] Test 13:39:12 SCREENING [code = BREAST CANCER SCREENING] Future Scheduled 2022-02-11 COLONOSCOPY SCREENING [facility] Test 13:39:12 [code = COLONOSCOPY SCREENING] Future Scheduled 2022-02-11 HEPATITIS B VACCINES Met [facility] Test 13:39:12 (1 of 3 - Risk 3-dose series) [code = HEPATITIS B VACCINES (1 of 3 - Risk 3-dose series)] Future Scheduled 2022-02-11 COVID-19 VACCINE (3 - [facility] Test 13:39:12 Booster for Pfizer series) [code = COVID-19 VACCINE (3 - Booster for Pfizer series)] Future Scheduled 2022-02-11 65+ PNEUMOCOCCAL [facility] Test 13:39:12 VACCINE (4 - PPSV23 or PCV20) [code = 65+ PNEUMOCOCCAL VACCINE (4 - PPSV23 or PCV20)] Future Scheduled 2022-02-11 INFLUENZA VACCINE Method [facility] Test 13:39:12 [code = INFLUENZA VACCINE] Future Scheduled 2022-01-29 SHINGLES VACCINES ([address] [facility] Test 14:07:20 of 2) [code = SHINGLES VACCINES (1 of 2)] Future Scheduled 2022-01-29 BREAST CANCER [facility] Test 14:07:20 SCREENING [code = BREAST CANCER SCREENING] Future Scheduled 2022-01-29 COLONOSCOPY SCREENING [facility] Test 14:07:20 [code = COLONOSCOPY SCREENING] Future Scheduled 2022-01-29 HEPATITIS B VACCINES Met [facility] Test 14:07:20 (1 of 3 - Risk 3-dose series) [code = HEPATITIS B VACCINES (1 of 3 - Risk 3-dose series)] Future Scheduled 2022-01-29 COVID-19 VACCINE (3 - Me [facility] Test 14:07:20 Booster for Pfizer series) [code = COVID-19 VACCINE (3 - Booster for Pfizer series)] Future Scheduled 2022-01-29 65+ PNEUMOCOCCAL [facility] Test 14:07:20 VACCINE (4 - PPSV23 or PCV20) [code = 65+ PNEUMOCOCCAL VACCINE (4 - PPSV23 or PCV20)] Future Scheduled 2022-01-29 INFLUENZA VACCINE Method [facility] Test 14:07:20 [code = INFLUENZA VACCINE] Future Scheduled 2022-01-29 SHINGLES VACCINES ([address] [facility] Test 14:07:20 of 2) [code = SHINGLES VACCINES (1 of 2)] Future Scheduled 2022-01-29 BREAST CANCER [facility] Test 14:07:20 SCREENING [code = BREAST CANCER SCREENING] Future Scheduled 2022-01-29 COLONOSCOPY SCREENING [facility] Test 14:07:20 [code = COLONOSCOPY SCREENING] Future Scheduled 2022-01-29 HEPATITIS B VACCINES Met [facility] Test 14:07:20 (1 of 3 - Risk 3-dose series) [code = HEPATITIS B VACCINES (1 of 3 - Risk 3-dose series)] Future Scheduled 2022-01-29 COVID-19 VACCINE (3 - [facility] Test 14:07:20 Booster for Pfizer series) [code = COVID-19 VACCINE (3 - Booster for Pfizer series)] Future Scheduled 2022-01-29 65+ PNEUMOCOCCAL [facility] Test 14:07:20 VACCINE (4 - PPSV23 or PCV20) [code = 65+ PNEUMOCOCCAL VACCINE (4 - PPSV23 or PCV20)] Future Scheduled 2022-01-29 INFLUENZA VACCINE Method [facility] Test 14:07:20 [code = INFLUENZA VACCINE] Future Scheduled 2022-01-29 SHINGLES VACCINES ([address] [facility] Test 14:07:20 of 2) [code = SHINGLES VACCINES (1 of 2)] Future Scheduled 2022-01-29 BREAST CANCER [facility] Test 14:07:20 SCREENING [code = BREAST CANCER SCREENING] Future Scheduled 2022-01-29 COLONOSCOPY SCREENING [facility] Test 14:07:20 [code = COLONOSCOPY SCREENING] Future Scheduled 2022-01-29 HEPATITIS B VACCINES [facility] Test 14:07:20 (1 of 3 - Risk 3-dose series) [code = HEPATITIS B VACCINES (1 of 3 - Risk 3-dose series)] Future Scheduled 2022-01-29 COVID-19 VACCINE (3 - Me [facility] Test 14:07:20 Booster for Pfizer series) [code = COVID-19 VACCINE (3 - Booster for Pfizer series)] Future Scheduled 2022-01-29 65+ PNEUMOCOCCAL [facility] Test 14:07:20 VACCINE (4 - PPSV23 or PCV20) [code = 65+ PNEUMOCOCCAL VACCINE (4 - PPSV23 or PCV20)] Future Scheduled 2022-01-29 INFLUENZA VACCINE Method [facility] Test 14:07:20 [code = INFLUENZA VACCINE] Future Scheduled 2022-01-29 SHINGLES VACCINES ([address] [facility] Test 14:07:20 of 2) [code = SHINGLES VACCINES (1 of 2)] Future Scheduled 2022-01-29 BREAST CANCER [facility] Test 14:07:20 SCREENING [code = BREAST CANCER SCREENING] Future Scheduled 2022-01-29 COLONOSCOPY SCREENING [facility] Test 14:07:20 [code = COLONOSCOPY SCREENING] Future Scheduled 2022-01-29 HEPATITIS B VACCINES Met [facility] Test 14:07:20 (1 of 3 - Risk 3-dose series) [code = HEPATITIS B VACCINES (1 of 3 - Risk 3-dose series)] Future Scheduled 2022-01-29 COVID-19 VACCINE (3 - [facility] Test 14:07:20 Booster for Pfizer series) [code = COVID-19 VACCINE (3 - Booster for Pfizer series)] Future Scheduled 2022-01-29 65+ PNEUMOCOCCAL [facility] Test 14:07:20 VACCINE (4 - PPSV23 or PCV20) [code = 65+ PNEUMOCOCCAL VACCINE (4 - PPSV23 or PCV20)] Future Scheduled 2022-01-29 INFLUENZA VACCINE Method [facility] Test 14:07:20 [code = INFLUENZA VACCINE] Future Scheduled 2022-01-20 SHINGLES VACCINES ([address] [facility] Test 06:12:34 of 2) [code = SHINGLES VACCINES (1 of 2)] Future Scheduled 2022-01-20 Screening for [facility] Test 06:12:34 malignant neoplasm of cervix (procedure) [code = [id number]] Future Scheduled 2022-01-20 BREAST CANCER [facility] Test 06:12:34 SCREENING [code = BREAST CANCER SCREENING] Future Scheduled 2022-01-20 COLONOSCOPY SCREENING [facility] Test 06:12:34 [code = COLONOSCOPY SCREENING] Future Scheduled 2022-01-20 HEPATITIS B VACCINES Met [facility] Test 06:12:34 (1 of 3 - Risk 3-dose series) [code = HEPATITIS B VACCINES (1 of 3 - Risk 3-dose series)] Future Scheduled 2022-01-20 COVID-19 VACCINE (3 - [facility] Test 06:12:34 Booster for Pfizer series) [code = COVID-19 VACCINE (3 - Booster for Pfizer series)] Future Scheduled 2022-01-20 65+ PNEUMOCOCCAL [facility] Test 06:12:34 VACCINE (4 - PPSV23 or PCV20) [code = 65+ PNEUMOCOCCAL VACCINE (4 - PPSV23 or PCV20)] Future Scheduled 2022-01-20 INFLUENZA VACCINE Method [facility] Test 06:12:34 [code = INFLUENZA VACCINE] Future Scheduled 2022-01-16 SHINGLES VACCINES ([address] [facility] Test 12:09:25 of 2) [code = SHINGLES VACCINES (1 of 2)] Future Scheduled 2022-01-16 Screening for [facility] Test 12:09:25 malignant neoplasm of cervix (procedure) [code = [id number]] Future Scheduled 2022-01-16 BREAST CANCER [facility] Test 12:09:25 SCREENING [code = BREAST CANCER SCREENING] Future Scheduled 2022-01-16 COLONOSCOPY SCREENING [facility] Test 12:09:25 [code = COLONOSCOPY SCREENING] Future Scheduled 2022-01-16 HEPATITIS B VACCINES Met [facility] Test 12:09:25 (1 of 3 - Risk 3-dose series) [code = HEPATITIS B VACCINES (1 of 3 - Risk 3-dose series)] Future Scheduled 2022-01-16 COVID-19 VACCINE (3 - [facility] Test 12:09:25 Booster for Pfizer series) [code = COVID-19 VACCINE (3 - Booster for Pfizer series)] Future Scheduled 2022-01-16 65+ PNEUMOCOCCAL [facility] Test 12:09:25 VACCINE (4 - PPSV23 or PCV20) [code = 65+ PNEUMOCOCCAL VACCINE (4 - PPSV23 or PCV20)] Future Scheduled 2022-01-16 INFLUENZA VACCINE Method [facility] Test 12:09:25 [code = INFLUENZA VACCINE] Future Scheduled 2022-01-14 SHINGLES VACCINES ([address] [facility] Test 04:11:46 of 2) [code = SHINGLES VACCINES (1 of 2)] Future Scheduled 2022-01-14 Screening for [facility] Test 04:11:46 malignant neoplasm of cervix (procedure) [code = [id number]] Future Scheduled 2022-01-14 BREAST CANCER [facility] Test 04:11:46 SCREENING [code = BREAST CANCER SCREENING] Future Scheduled 2022-01-14 COLONOSCOPY SCREENING [facility] Test 04:11:46 [code = COLONOSCOPY SCREENING] Future Scheduled 2022-01-14 HEPATITIS B VACCINES Met [facility] Test 04:11:46 (1 of 3 - Risk 3-dose series) [code = HEPATITIS B VACCINES (1 of 3 - Risk 3-dose series)] Future Scheduled 2022-01-14 COVID-19 VACCINE (3 - [facility] Test 04:11:46 Booster for Pfizer series) [code = COVID-19 VACCINE (3 - Booster for Pfizer series)] Future Scheduled 2022-01-14 65+ [facility]CCAL [facility] Test 04:11:46 VACCINE (4 - PPSV23 or PCV20) [code = 65+ PNEUMOCOCCAL VACCINE (4 - PPSV23 or PCV20)] Future Scheduled 2022-01-14 INFLUENZA VACCINE Method [facility] Test 04:11:46 [code = INFLUENZA VACCINE] Future Scheduled 2021-08-26 Screening for [facility] Test 13:02:23 malignant neoplasm of cervix (procedure) [code = [id number]] Future Scheduled 2021-08-26 BREAST CANCER [facility] Test 13:02:23 SCREENING [code = BREAST CANCER SCREENING] Future Scheduled 2021-08-26 COLONOSCOPY SCREENING [facility] Test 13:02:23 [code = COLONOSCOPY SCREENING] Future Scheduled 2021-08-26 Screening for [facility] Test 13:02:23 malignant neoplasm of lung (procedure) [code = [id number]] Future Scheduled 2021-08-26 SHINGLES VACCINES (#1) [facility] Test 13:02:23 [code = SHINGLES VACCINES (#1)] Future Scheduled 2021-08-26 COVID-19 VACCINE (3 - Me [facility] Test 13:02:23 Pfizer risk 4-dose series) [code = COVID-19 VACCINE (3 - Pfizer risk 4-dose series)] Future Scheduled 2021-08-26 65+ [facility]OCCAL [facility] Test 13:02:23 VACCINE (4 of 4 - PPSV23) [code = 65+ PNEUMOCOCCAL VACCINE (4 of 4 - PPSV23)] Future Scheduled 2021-08-26 INFLUENZA VACCINE Method [facility] Test 13:02:23 [code = INFLUENZA VACCINE] Encounters Start End Encounter Admission Attending Care Care Encounter Source Date/Time Date/Time Type Type Clinicians Facility Department ID 2022-02-18 Outpatient [facility] [id number] [place] 14:30:[address] [place] [address] 2021-07-14 Outpatient SADIKOVIC, [facility] [id number] [place] 09:33:51 [facility] 2021-06-02 Outpatient HEMATPOUR, [facility] [id number] [place] 13:58:59 [facility] 2021-04-28 Outpatient HEMATPOUR, [facility] [id number] [place] 11:21[facility] [facility] [facility] 2021-03-20 Emergency [facility] [id number] Univers 16:07:40 [facility] 2020-12-12 Outpatient HEMATPOUR, [facility] [id number] [place] 08:16:46 [facility] 2020-10-31 Outpatient HEMATPOUR, [facility] [id number] [place] 09:44:[address] [facility] 2020-09-30 Outpatient HEMATPOUR, [facility] [id number] [place] 13:16:03 [facility] 2022-04-07 2022-04-07 Outpatient R UNKNOWN, [facility] [id number] Univers 20:40:00 20:40:00 ATTENDING ity [facility] 2022-04-07 2022-04-07 Telephone BeltranShelby.2.840.1 [id number] Univers 00:00:00 00:00:00 Robbi Hairston 21696.1.1 i ty 3.104.2.7 [place] .3.817459 Medica [facility] .8 [place] 2022-03-05 2022-03-05 Treasury Agent Santiago Cardenas 1.2.840.1 [id number] Univers 13:45:00 14:00:00 Visit [facility] 13537.1.1 ity of 3.104.2.7 [place] .3.119721 Medica l .8 [place] 2022-03-05 2022-03-05 Outpatient R [facility] [id number] Univers 13:45:00 13:45:00 SANTIAGO barbosa [facility] 2022-03-05 2022-03-05 Office Ronald, 1.2.840.2 [id number] Univers 13:00:00 13:30:00 Visit Santiago 04629.1.1 ity of 3.104.2.7 [place] .3.342630 Medica l .8 [place] 2022-02-26 2022-02-26 Outpatient R [facility] [id number] Univers 08:30:00 08:30:00 SANTIAGO barbosa [facility] 2022-02-26 2022-02-26 Outpatient R [facility] [id number] Univers 08:30:00 08:30:00 SANTIAGO ity [facility] 2022-02-17 2022-02-17 Transition Stevo, 1.2.840.8 [id number] Univers 00:00:00 00:00:00 of Care Isaias Arredondo 46829.1.1 it y of 3.104.2.7 [place] .3.080050 Medica l .8 [place] 2022-02-10 2022-02-16 Inpatient X FRANK [facility] FAVIO [id number] Univers 22:59:00 19:27:00 TOMY barbosa [facility] 2022-02-10 2022-02-16 Hospital Reilly Means 1.2.840.1 [id number] Univers 22:59:00 19:27:00 Encounter Ofe Shields 72395.1.1 ity of [place] 3[place]104.2.7 [place] .3.277481 Medica [place] .8 [place] 2022-02-11 2022-02-11 Telephone [place], 1.2.840.4 [id number] Univers 00:00:00 00:00:00 Santiago 86741.1.1 ity of 3.104.2.7 [place] .3.788699 Medica l .8 [place] 2022-02-10 2022-02-10 Travel 1.2.840.1 [id number] [id number] Univers 00:00:00 00:00:00 62491.1.1 350.1.13.10 ity of 3.104.2.7 [place]3.698 [place] .3.744577 084.8 Medica l .8 [place] 2022-01-30 2022-01-30 Telephone East, 1.2.840.3 [id number] Univers 00:00:00 00:00:00 Santiago 15106.1.1 ity of 3.104.2.7 [place] .3.500816 Medica l .8 [place] 2022-01-06 2022-01-06 Orders Doctor FERMIN 1.2.840.114 [id number] Univers 00:00:00 00:00:00 Only Unassigned, JACKELINE 350.1.13.10 ity of [facility] 4.2.7.2.686 Yomi as [phone] [address] 2021-12-25 2021-12-25 Orders Doctor FERMIN 1.2.840.114 [id number] Univers 00:00:00 00:00:00 Only Unassigned, JACKELINE 350.1.13.10 ity of [facility] 4.2.7.2.686 Yomi as [id number] [address] 2021-12-12 2021-12-13 Emergency X Bill COLES [facility] ERT [id number] Univers 23:53:00 01:52:00 ity of [facility] 2021-12-12 2021-12-13 Emergency Bill Coles [facility] 1.2.840.114 [id number] Univers 23:53:00 01:52:00 Kiersten BULLOCK 350.1.13.10 i [place] [id number] [facility] [address] 2021-11-20 2021-11-20 Treasury Agent [facility] UNIVERSIT 1.2.840.114 [id number] Univers 09:45:00 10:00:00 Visit Santiago Cardenas [facility] 350.1.13.10 ity [place] [phone] [facility] [address] [place] 2021-11-20 2021-11-20 Office [facility] 1.2.709.687 [id number] Univers 08:30:00 09:00:00 Visit [facility] 350.1.13.10 i ty of [place] [id number] [facility] 089 [place] 2021-11-20 2021-11-20 Outpatient R [facility] [id number] Univers 08:30:00 08:30:00 [facility] 2021-11-20 2021-11-20 Outpatient R [facility] [id number] Univers 08:30:00 08:30:00 [facility] 2021-11-20 2021-11-20 Outpatient R [facility] [id number] Univers 08:30:00 08:30:00 [facility] 2021-11-20 2021-11-20 Outpatient R [facility] [id number] Univers 08:30:00 08:30:00 [facility] 2021-10-24 2021-10-24 Emergency X WALKER [facility] ERT [id number] Univers 16:27:00 22:26:00 [facility] 2021-10-24 2021-10-24 Emergency X WALKER [facility] ERT [id number] Univers 16:27:00 [facility] 2021-10-24 Emergency Reilly Means [facility] 1.2.840. 114 [id number] Univers 16:27:00 22:26:00 [facility] 350.1.13.10 ity of [place] 4.2.7.2.686 [facility] [id number] [address] 2021-10-23 2021-10-24 Emergency X [facility] ERT [id number] Univers 20:22:00 02:57:00 [facility] 2021-10-23 2021-10-24 Emergency [facility] 1.2.166.043 [id number] Univers 20:22:00 02:57:[address] [facility] 350.1.13.10 ity of [place] 4.2.7.2.686 [facility] [id number] [address] 2021-09-07 2021-09-07 Outpatient R [facility] [id number] Univers 08:00:00 08:00:00 GADIEL raheemcharlie vogel [facility] 2021-09-07 2021-09-07 Outpatient R [facility] [id number] Univers 08:00:00 08:00:00 GADIEL barbosa o [facility] 2021-08-21 2021-08-21 Outpatient R [facility] [id number] Univers 10:45:00 10:45:00 SANTIAGO barbosa [facility] 2021-08-21 2021-08-21 [employer] Agent Santiago Cardenas 1.2.840.1 [id number] Univers 10:45:00 10:45:00 Visit [facility] 44657.1.1 ity of 3.104.2.7 [place] .3.597813 Medica l .8 [place] 2021-08-21 2021-08-21 Office Ronald, 1.2.840.7 [id number] Univers 08:30:00 09:00:00 Visit Santiago 89838.1.1 ity of 3.104.2.7 [place] .3.319987 Medica l .8 [place] 2021-08-21 2021-08-21 Office [place], UNIVERSIT [id number] [id number] Univers 08:30:00 09:00:00 Visit Santiago [facility] 350.1.13.10 i ty of CLINICS 4.2.7.2.686 [place] elena bach [phone] [facility] porfirio 089 [place] 2021-08-21 2021-08-21 Outpatient [facility] [id number] Univers 08:30:00 08:30:00 SANTI[place]O charlie [facility] 2021-08-21 2021-08-21 Travel 1.2.840.1 [id number] Univers 00:00:00 00:00:00 42182.1.1 350.1.13.10 ity of 3.104.2.[place] 4.[place]3.698 [place] .3.574804 084.8 Medica l .8 [place] 2021-08-14 2021-08-14 Telephone East, 1.2.840.7 [id number] Univers 00:00:00 00:00:00 Santiago 34814.1.1 ity of 3.104.2.7 [place] .3.493095 Medica l .8 [place] 2021-08-13 2021-08-13 Telephone East, 1.2.840.2 [id number] Univers 00:00:00 00:00:00 Santiago 84479.1.1 ity of 3.104.2.7 [place] .3.612005 Medica l .8 [place] 2021-08-11 2021-08-11 Outpatient [facility] [id number] Univers 08:00:00 08:00:00 [facility] 2021-08-05 2021-08-05 Inpatient RAUL Lund, [facility] OUTD [id number] [facility] 05:24:00 05:24:00 Mike 31 [facility] 2021-07-20 2021-07-20 Outpatient [facility] [id number] Univers 10:00:00 10:00:00 [facility] 2021-07-14 2021-07-14 Office KIMBERLEY Lira 6400 1.2.840.114 13 [id number] [place] 08:45:00 09:34:[address] 350.1.13.58 Health 9.2.7.2.686 [id number] 1 2021-07-09 2021-07-09 Telephone Maryjanepoliz, UTP 6400 1.2.840.114 [id number] [place] 00:00:00 00:00:[address] 350.1.13.58 Health 9.2.7.2.686 [id number] 1 2021-07-09 2021-07-09 Telephone Maryjanepoliz, UTP 6400 1.2.840.114 [id number] [place] 00:00:00 00:00:[address] 350.1.13.58 Health 9.2.7.2.686 [id number] 1 2021-07-03 2021-07-03 Outpatient R EAST, [facility] [id number] Univers 08:00:00 08:00:00 SANTIAGO barbosa [facility] 2021-06-17 2021-06-17 Inpatient RAUL Ashely, HCACL INTE.02 [id number] [facility] 10:56:00 14:36:00 Mike 47 [facility] 2021-06-15 2021-06-15 Outpatient R SELF, [facility] [id number] Univers 10:15:00 11:07:21 GADIEL macielcharlie vogel [facility] 2021-06-15 2021-06-15 Outpatient R SELF, [facility] [id number] Univers 10:15:00 10:15:00 GADIEL vogel [facility] 2021-06-15 2021-06-15 Outpatient R SELF, [facility] [id number] Univers 10:15:00 10:15:00 GADIEL macielcharlie [facility] 2021-06-15 2021-06-15 Orders Doctor 1.2.840.9 [id number] 775 Univers 00:00:00 00:00:00 Only Unassigned, 73744.1.1 ity of [place] 3.104.2.7 [place] .3.203360 [facility]ica [facility] 2021-06-15 2021-06-15 Travel 1.2.840.1 1.2.276.675 2034 7719 Univers 00:00:00 00:00:00 71726.1.1 350.1.13.10 ity of 3.104.2.7 4.[place].7.3.698 [place] .3.568524 084.8 Medica l .8 [place] 2021-06-11 2021-06-11 Refill [facility], UNIVERSIT 1.2.867.051 8674 9185 Univers 00:00:00 00:00:00 [facility] 350.1.13.10 i ty of CLINICS 4.2.7.2.686 [place] 591.3155268 [facility] 089 [place] 2021-06-11 2021-06-11 Refill [facility], 1.2.840.0 [id number] 185 Univers 00:00:00 00:00:00 Santiago 59032.1.1 ity of 3.104.2.7 [place] .3.935109 Medica l .8 [place] 2021-06-05 2021-06-05 Outpatient R [facility] [id number] Univers 09:00:00 09:00:00 SANTIAGO ity of [facility] 2021-06-02 2021-06-[address] [facility], [facility] 1.2.840.114 90 [id number] Univers 00:00:00 00:00:00 [facility] 350.1.13.10 i ty of CLINICS 4.[place].2.686 [place] [id number] [place] 775409 [place] 2021-06-02 2021-06-02 Telephone [facility], 1.2.840.2 [id number] 903 [id number] Univers 00:00:00 00:00:00 [place] 00033.1.1 ity of 3.104.2.7 [place] .3.496579 Medica l .8 Branch 2021-05-29 2021-05-29 Telephone East, 1.2.840.4 [id number] 902 85563 Univers 00:00:00 00:00:00 [place] 26202.1.1 ity of 3.104.2.7 [place] .3.307787 Medica l .8 [place] 2021-05-29 2021-05-29 Telephone East, 1.2.840.6 [id number] 902 [id number] Univers 00:00:00 00:00:00 [place] 50000.1.1 [facility] 3.104.2.7 [place] [address].554199 Medica l .8 [place] 2021-05-25 2021-05-25 Outpatient R SELF, [facility] [id number] Univers 08:00:00 08:00:00 GADIEL rodas [facility] 2021-04-29 2021-04-29 Outpatient R LALA, [facility] [id number] Univers 08:00:00 08:00:00 NIKOLAI barbosa [facility] 2021-04-28 2021-04-28 Telephone Maryjanedale, [facility] 6400 1.2.840.114 [id number] [place] 00:00:00 00:00:[address] 350.1.13.58 Health 9.2.7.2.686 [id number] 1 2021-04-28 2021-04-28 Telephone Jailyn, 1.2.840.9 [id number] 21 [id number] Methodi 00:00:00 00:00:[address] 3.430.2.7 Hospit a .3.897585 l .8 2021-04-28 2021-04-28 Telephone Jailyn, 1.2.840.0 [id number] 21 [id number] Methodi 00:00:00 00:00:[address] 3.430.2.7 Hospit a .3.760046 l .8 2021-03-31 2021-03-31 Orders Carol Ann, 1.2.840.1 [id number] 21 [id number] Methodi 00:00:00 00:00:00 Only aSrai Lieberman 50086.1.1 979 s t 3.430.2.7 Hospit a .3.223944 l .8 2021-03-30 2021-03-30 Outpatient R SELF, [facility] [id number] Univers 08:45:00 08:45:00 GADIEL rodas [facility] 2021-03-24 2021-03-24 Telephone Jailyn, 1.2.840.0 [id number] 21 [id number] Methodi 00:00:00 00:00:[address] 3.430.2.7 Hospit a .3.132778 l .8 2021-02-13 2021-02-13 Telephone Ronald, 1.2.840.1 [id number] 876 58914 Univers 00:00:00 00:00:00 Santiago 94003.1.1 ity of 3.104.2.7 [place] .3.301274 Medica l .8 [place] 2021-01-28 2021-01-28 Outpatient Marika REEVES, [facility] [id number] Univers 08:45:00 09:37:00 NIKOLAI ity of [facility] 2021-01-28 2021-01-28 Travel 1.2.840.1 1.2.482.920 3624 9777 Univers 00:00:00 00:00:00 02425.1.1 350.1.13.10 ity of 3.104.2.7 4.[place].7.3.698 [place] .3.763654 084.8 Medica l .8 [place] 2021-01-19 2021-01-19 Telephone Prabhu, 1.2.840.1 [id number] 2100 [id number] Methodi 00:00:00 00:00:[address] 3.430.2.7 Hospit a .3.495046 l .8 2021-01-04 2021-01-04 Dmitry Bass, 1.2.840.1 [id number] 49570 696 Univers 00:00:00 00:00:00 (Out) Dagoberto H 05609.1.1 ity of 3.104.2.7 [place] .3.805009 Medica l .8 [place] 2021-01-04 2021-01-04 Dmitry Bass, 1.2.840.7 [id number] 05188 696 Univers 00:00:00 00:00:00 (Out) Dagoberto H 75809.1.1 ity of 3.104.2.7 [place] .3.302601 Medica l .8 Branch 2021-01-03 2021-01-03 Letter Shelia, 1.2.840.0 [id number] 62745 790 Univers 00:00:00 00:00:00 (Out) Dagoberto H 02408.1.1 ity of 3.104.2.7 [place] .3.582678 Medica l .8 [place] 2021-01-03 2021-01-03 Letter Shelia, 1.2.840.5 [id number] 34952 790 Univers 00:00:00 00:00:00 (Out) Dagoberto H 25437.1.1 ity of 3.104.2.7 [place] .3.519471 Medica l .8 [place] 2021-01-02 2021-01-02 Outpatient R [facility] [id number] Univers 13:40:00 13:40:00 ity of [facility] 2021-01-02 2021-01-02 Laboratory [place] 1.2.840.4 878508 [id number] [id number] Univers 12:14:13 12:57:34 Only Lab, [facility] [place] 49361.1.1 ity of 3.104.2.7 [place] .3.013708 Medica l .8 [place] 2021-01-02 2021-01-02 Laboratory Kalaelbert[place] 1.2.840.7 846351 1603 [id number] Univers 12:14:13 12:57:34 Only Lab, [facility] Fam Pob I 05088.1.1 ity of 3.104.2.7 [place] .3.289556 Medica l .8 [place] 2021-01-02 2021-01-02 Travel 1.2.840.1 1.2.248.222 0148 2306 Univers 00:00:00 00:00:00 91921.1.1 350.1.13.10 ity of 3.104.2.7 4.2.7.3.698 [place] .3.193751 084.8 Medica l .8 [place] 2021-01-02 2021-01-02 Letter Doctor 1.2.840.1 [id number] 10998 948 Univers 00:00:00 00:00:00 (Out) Unassigned, 11204.1.1 ity of [place] 3.104.2.7 [place] .3.266637 Medica l .8 [place] 2021-01-02 2021-01-02 Letter Doctor 1.2.840.2 [id number] 946 Univers 00:00:00 00:00:00 (Out) Unassigned, 99395.1.1 ity of [place] 3.104.2.7 [place] .3.135641 Medica l .8 [place] 2021-01-02 2021-01-02 Travel 1.2.840.1 1.2.287.216 5067 2306 Univers 00:00:00 00:00:00 19054.1.1 350.1.13.10 ity of 3.104.2.7 4.2.7.3.698 [place] .3.394910 084.8 Medica l .8 [place] 2021-01-02 2021-01-02 Letter Doctor 1.2.840.8 [id number] 38086 948 Univers 00:00:00 00:00:00 (Out) Unassigned, 42980.1.1 ity of [place] 3.104.2.7 [place] .3.307430 Medica l .8 [place] 2021-01-02 2021-01-02 Letter Doctor 1.2.840.0 [id number] 03685 946 Univers 00:00:00 00:00:00 (Out) Unassigned, 75070.1.1 ity of [place] 3.104.2.7 [place] .3.542632 Medica l .8 [place] 2020-12-22 2020-12-22 Telephone Beltran, 1.2.840.8 [id number] 862 84782 Univers 00:00:00 00:00:00 Robbi Hairston 40735.1.1 i ty of 3.104.2.7 [place] .3.780911 Medica l .8 Branch 2020-12-22 2020-12-22 Telephone Beltran, 1.2.840.8 [id number] 862 55986 Univers 00:00:00 00:00:00 Robbi R 22487.1.1 i ty of 3.104.2.7 [place] .3.259584 Medica l .8 [place] 2020-12-12 2020-12-12 Office Hematpour, UTP 6400 1.2.840.114 12 [id number] [place] 07:42:02 08:18:[address] 350.1.13.58 Health 9.2.7.2.686 551.8033866 1 2020-12-12 2020-12-12 Office Hematpour, UTP 6400 1.2.840.114 12 [id number] 07:42:02 08:18:[address] 350.1.13.58 9.2.7.2.686 398.1295408 1 2020-12-09 2020-12-09 Telephone Carol Ann, 1.2.840.1 [id number] Methodi 00:00:00 00:00:00 Sarai CorbinChelsie 14520.1.1 316 s t 3.430.2.7 Hospit a .3.305121 l .8 2020-12-08 2020-12-08 [facility], 1.2.840.1 [id number] 2100 639983 Methodi 12:35:54 23:59:00 Encounter Ray 83863.1.[address] 3.430.2.7 Hospit a .3.249906 l .8 2020-12-08 2020-12-08 [facility], 1.2.840.1 [id number] 99622 Methodi 17:25:00 17:30:[address] 3.430.2.7 Hospit a .3.055592 l .8 2020-12-08 2020-12-08 [facility], .2.840.1 [id number] 63422 19557 Methodi 10:30:00 11:39:56 Visit Ray 01074.1.[address] 3.430.2.7 Hospit a .3.141888 l .8 2020-12-08 2020-12-08 Travel 1.2.840.1 1.2.190.918 5117 346725 Methodi 00:00:00 00:00:[address] 3.430.2.7 0.2.7.3.698 Ho spita .3.406025 084.8 l .8 2020-12-02 2020-12-02 Treasury Agent Santiago Cardenas 1.2.840.1 [id number] Univers 10:20:06 10:36:19 Visit [facility] 48041.1.1 ity of 3.104.2.7 [place] .3.215944 Medica l .8 [place] 2020-12-02 2020-12-02 Treasury Agent Santiago Cardenas 1.2.840.1 [id number] [facility] 10:20:06 10:36:19 Visit [facility] 20319.1.1 ity of 3.104.2.7 [place] .3.662363 Medica l .8 [place] 2020-12-02 2020-12-02 Treasury Agent [facility] UNIVERSIT 1.2.840.114 8 [id number] 10:20:06 10:36:19 Visit HEALTH 350.1.13.10 CLINICS 4.2.7.2.686 159.6271821 316 2020-12-02 2020-12-02 Office Ronald, 1.2.840.4 [id number] 51859 528 Univers 08:31:37 09:01:37 Visit Santiago 16401.1.1 ity of 3.104.2.7 [place] .3.725510 Medica l .8 [place] 2020-12-02 2020-12-02 Outpatient R RONALD [facility] [id number] Univers 09:00:00 09:00:00 SANTIAGO barbosa of [facility] 2020-11-25 2020-11-25 Office Beltran, 1.2.840.2 [id number] 81032 865 Univers 11:06:30 11:58:14 Visit Robbi Hairston 22854.1.1 i ty of 3.104.2.7 [place] .3.402959 Medica l .8 [place] 2020-11-25 2020-11-25 Office Devin, 1.2.840.6 [id number] 92321 865 Univers 11:06:30 11:58:14 Visit Robbi Hairston 89570.1.1 i ty of 3.104.2.7 [place] .3.180356 Medica l .8 [place] 2020-11-25 2020-11-25 [facility] 1.2.840.114 [id number] 65 11:06:30 11:58:14 Visit Robbi Marika CRYPTOGRAPHER 350.1.13.10 REGIONAL 4.2.7.2.686 MATERNAL [id number] & CHILD [address] [place] [address] 2020-11-25 2020-11-25 Outpatient R [facility] [id number] Univers 11:00:00 11:00:00 ity of [facility] 2020-11-25 2020-11-25 Telephone Devin, 1.2.840.0 [id number] 855 [id number] Univers 00:00:00 00:00:00 Robbi Hairston 12502.1.1 i ty of 3.104.2.7 [place] .3.686796 Medica l .8 [place] 2020-11-25 2020-11-25 Refill East, 1.2.840.0 [id number] 37428 592 Univers 00:00:00 00:00:00 Santiago 32781.1.1 ity of 3.104.2.7 [place] .3.546814 Medica l .8 [place] 2020-11-25 2020-11-25 Travel 1.2.840.1 1.2.518.886 3156 0247 Univers 00:00:00 00:00:00 34843.1.1 350.1.13.10 ity of 3.104.2.7 4.2.7.3.698 [place] .3.915057 084.8 Medica l .8 [place] 2020-11-25 2020-11-25 Orders Doctor 1.2.840.3 [id number] 34147 064 Univers 00:00:00 00:00:00 Only Unassigned, 54643.1.1 ity of [place] 3.104.2.7 [place] .3.551748 Medica l .8 Branch 2020-11-25 2020-11-25 Telephone Beltran, 1.2.840.6 [id number] 855 93927 Univers 00:00:00 00:00:00 Devina R 77435.1.1 i ty of 3.104.2.7 [place] .3.910517 Medica l .8 Branch 2020-11-25 2020-11-25 Refill [facility], 1.2.840.8 [id number] 25664 592 Univers 00:00:00 00:00:00 [place] 15983.1.1 ity of 3.104.2.7 [place] .3.253662 Medica l .8 Branch 2020-11-25 2020-11-25 Travel 1.2.840.1 1.2.179.945 2122 0247 Univers 00:00:00 00:00:00 21360.1.1 350.1.13.10 ity of 3.104.2.7 4.2.7.3.698 [place] .3.110521 084.8 Medica l .8 [place] 2020-11-25 2020-11-25 Orders Doctor 1.2.840.8 [id number] 46403 064 Univers 00:00:00 00:00:00 Only Unassigned, 40306.1.1 ity of [place] 3.104.2.7 [place] .3.431987 Medica l .8 [place] 2020-11-25 2020-11-25 Critical access hospital 1.2.657.378 7436 4592 00:00:00 00:00:00 [facility] 350.1.13.10 CLINICS 4.2.7.2.686 033.3910054 089 2020-11-25 2020-11-25 Telephone [facility] 1.2.070.767 1138 0821 00:00:00 00:00:00 Robbi R CRYPTOGRAPHER 350.1.13.10 REGIONAL 4.2.7.2.686 MATERNAL 866.1948188 & CHILD [address] [place] [address] 2020-11-14 2020-11-14 Abstract Clark, 1.2.840.1 [id number] 77708 42962 Methodi 00:00:00 00:00:[address] 3.430.2.7 Hospit a .3.454467 l .8 2020-11-14 2020-11-14 Telephone Clark, 1.2.840.1 [id number] 2100 785045 Methodi 00:00:00 00:00:[address] 3.430.2.7 Hospit a .3.286283 l .8 2020-11-12 2020-11-12 Outpatient Marika CARDENAS [facility] [id number] Univers 08:30:00 08:30:00 SANTIAGO ity [facility] 2020-11-07 2020-11-07 Telephone Agustina Ortiz 6400 1.2.840.11 4 [id number] [place] 00:00:00 00:00:[address] 350.1.13.58 Health 9.2.7.2.686 611.0499329 1 2020-11-07 2020-11-07 Telephone KIMBERLEY Ortiz 6400 1.2.840.114 124 [id number] 00:00:00 00:00:[address] 350.1.13.58 9.2.7.2.686 [id number] 1 2020-10-31 2020-10-31 Office HematpoKIMBERLEY bell 6400 1.2.840.114 12 [id number] [place] 07:54:00 09:45:[address] 350.1.13.58 Health 9.2.7.2.686 530.0280179 1 2020-10-30 2020-10-30 Abstract Rody Maguire UTP 6400 1.2.840.1 14 [id number] [place] 00:00:00 00:00:[address] 350.1.13.58 Health 9.2.7.2.686 [id number] 1 2020-10-29 2020-10-29 Refill East, 1.2.840.9 [id number] 87604 400 Univers 00:00:00 00:00:00 Santiago 96156.1.1 ity of 3.104.2.7 [place] .3.271413 Medica l .8 Branch 2020-10-29 2020-10-29 Refill East, 1.2.840.0 [id number] 72331 400 Univers 00:00:00 00:00:00 Santiago 06762.1.1 ity of 3.104.2.7 [place] .3.644402 Medica l .8 Branch 2020-10-27 2020-10-27 Telephone Jailyn, 1.2.840.7 [id number] 21 [id number] Methodi 00:00:00 00:00:[address] 3.430.2.7 Hospit a .3.805881 l .8 2020-10-24 2020-10-24 Telephone Clark, 1.2.840.1 [id number] 2100 526522 Methodi 00:00:00 00:00:[address] 3.430.2.7 Hospit a .3.470597 l .8 2020-10-22 2020-10-22 Outpatient R SELF, [facility] [id number] 868 Univers 13:00:00 13:00:00 GADIEL rodas [facility] 2020-10-22 2020-10-22 Travel 1.2.840.1 1.2.088.797 1840 3839 Univers 00:00:00 00:00:00 27510.1.1 350.1.13.10 ity of 3.104.2.7 4.2.7.3.698 [place] .3.346894 084.8 Medica l .8 Branch 2020-10-22 2020-10-22 Travel 1.2.840.1 1.2.675.467 0939 3839 Univers 00:00:00 00:00:00 66320.1.1 350.1.13.10 ity of 3.104.2.7 4.2.7.3.698 [place] .3.288594 084.8 Medica l .8 Branch 2020-10-13 2020-10-13 Outpatient R RODO, [facility] [id number] Univers 08:45:00 08:45:00 GADIEL barbosa o f [facility] 2020-10-06 2020-10-12 Telemedici [facility], 1.2.840.1 [id number] 21 [id number] Methodi 15:30:00 00:08:46 ne Ray 09050.1.[address] 3.430.2.7 Hospit a .3.347758 l .8 2020-09-30 2020-09-30 [facility], 1.2.840.4 [id number] Methodi 00:00:00 00:00:[address] 3.430.2.7 Hospit a .3.608765 l .8 2020-09-21 2020-09-21 [facility] 1.2.840.1 1.2.497.997 2292 140062 Methodi 00:00:00 00:00:[address] 3.430.2.7 0.2.7.3.698 Ho spita .3.916928 084.8 l .8 2020-09-06 2020-09-06 [facility] 1.2.840.1 [id number] 84690 12923 Methodi 17:42:30 23:59:[address] 3.430.2.7 Hospit a .3.077902 l .8 2020-09-06 2020-09-06 [facility], 1.2.840.1 [id number] 2099 [id number] Methodi 16:50:00 17:41:00 Encounter Ray [address]95.1.[address] 3.430.2.7 Hospit a .3.351834 l .8 2020-09-05 2020-09-05 [facility], 1.2.840.1 [id number] 2099 748468 Methodi 09:17:00 19:45:00 Encounter Ray [address]019.1.[address] 3.430.2.7 Hospit a .3.770923 l .8 2020-09-05 2020-09-05 Surgery Chihara, 1.2.840.1 [id number] 85632 17656 Methodi 11:30:00 13:15:[address] 3.430.2.7 Hospit a .3.108351 l .8 2020-09-05 2020-09-05 Anesthesia Remigio, 1.2.840.1 [id number] 087 2435982 Methodi 11:27:00 12:20:00 Event Johnathanthi 50343.1.1 243 s t V. 3.430.2.7 Hospit a .3.062385 l .8 2020-09-05 2020-09-05 Travel 1.2.840.1 1.2.642.372 1125 670608 Methodi 00:00:00 00:00:[address] 3.430.2.7 0.2.7.3.698 Ho spita .3.522527 084.8 l .8 2020-09-04 2020-09-04 Telephone Meisenbach, 1.2.840.1 [id number] Methodi 00:00:00 00:00:00 Sarai Corbin. 10767.1.1 762 s t 3.430.2.7 Hospit a .3.918608 l .8 2020-09-02 2020-09-02 Telephone Meisenbach, 1.2.840.3 [id number] Methodi 00:00:00 00:00:00 Sarai Corbin. 03058.1.1 344 s t 3.430.2.7 Hospit a .3.087390 l .8 2020-08-29 2020-08-30 Bedded [facility] [id number] [facility] 10:20:00 14:10:00 Outpatient [facility] 00 [facility] 2020-08-29 2020-08-30 Outpatient HEMATPOUR, [facility] CAR [address] [facility] 05:20:00 09:10:00 REGINAASH 2020-08-06 2020-08-06 Office [place], 1.2.840.2 [id number] [id number] 416 Univers 08:03:23 09:17:49 Visit Santiago 13908.1.1 ity of 3.104.2.7 [place] .3.055752 Medica l .8 [place] 2020-08-06 2020-08-06 Outpatient R EAST, [facility] [id number] Univers 08:30:00 08:30:00 SANTIAGO ity of [facility] 2020-07-14 2020-07-14 Outpatient R SELF, [facility] [id number] Univers 09:30:00 09:30:00 GADIEL barbosa o [facility] 2020-07-14 2020-07-14 Travel 1.2.840.1 1.2.393.154 2657 2575 Univers 00:00:00 00:00:00 91452.1.1 350.1.13.10 ity of 3.104.2.7 4.2.7.3.698 [place] .3.883428 084.8 Medica l .8 [place] 2020-07-14 2020-07-14 Orders Doctor 1.2.840.5 [id number] 79243 309 Univers 00:00:00 00:00:00 Only Unassigned, 88061.1.1 ity of [place] 3.104.2.7 [place] .3.246683 Medica l .8 [place] 2020-06-16 2020-06-16 Outpatient R SELF, [facility] [id number] Univers 08:00:00 08:00:00 GADIEL barbosa o clark [facility] 2020-06-06 2020-06-06 Telephone Ronald, 1.2.840.7 [id number] 809 [id number] Univers 00:00:00 00:00:00 Santiago 54537.1.1 ity of 3.104.2.7 [place] .3.943500 Medica l .8 [place] 2020-06-04 2020-06-04 Treasury Agent Santiago Cardenas 1.2.840.1 [id number] Univers 09:31:58 09:40:12 Visit [facility] 57817.1.1 ity of 3.104.2.7 [place] .3.027020 Medica l .8 [place] 2020-06-04 2020-06-04 Office JOSÉ ANTONIO Cardenas 1.2.566.445 3163 9729 Univers 08:13:41 09:28:25 Visit Santiago [facility] 350.1.13.10 i ty of [place] [id number] Medi porfirio 089 Branch 2020-06-04 2020-06-04 Outpatient R [facility] [id number] Univers 08:30:00 08:30:00 SANTIAGO ity of [facility] 2020-06-04 2020-06-04 Orders Doctor 1.2.840.4 [id number] Univers 00:00:00 00:00:00 Only Unassigned, 14661.1.1 ity of [place] 3.104.2.7 [place] .3.838678 Medica l .8 [place] 2020-05-19 2020-05-19 Telephone Ronald, 1.2.840.1 [id number] Univers 00:00:00 00:00:00 Santiago 68836.1.1 ity of 3.104.2.7 [place] .3.655262 Medica l .8 [place] 2020-04-24 2020-04-24 Telephone Ronald, 1.2.840.1 [id number] Univers 00:00:00 00:00:00 Santiago 45923.1.1 ity of 3.104.2.7 [place] .3.702487 Medica l .8 [place] 2020-04-14 2020-04-14 Outpatient R [facility] [id number] Univers 09:00:00 09:00:00 [place] ity of [facility] 2020-04-14 2020-04-14 Telephone Ronald, 1.2.840.9 [id number] Univers 00:00:00 00:00:00 Santiago 70091.1.1 ity of 3.104.2.7 [place] .3.218274 Medica l .8 [place] 2020-03-31 2020-03-31 Outpatient R EAST, [facility] [id number] Univers 08:30:00 08:30:00 SANTIAGO ity of [facility] 2020-03-03 2020-03-03 Outpatient R SELF, [facility] [id number] Univers 08:00:00 08:00:00 GADIEL ity o f [facility] 2020-03-03 2020-03-03 Outpatient R SELF, [facility] [id number] Univers 08:00:00 08:00:00 GADIEL ity o f [facility] 2020-03-03 2020-03-03 Travel 1.2.840.1 1.2.079.512 [id number] Univers 00:00:00 00:00:00 28519.1.1 350.1.13.10 ity of 3.104.2.[place].698 [place] .[place] 084.8 Medica l .8 [place] 2020-02-06 2020-02-06 Telephone [place], 1.2.840.5 [id number] Univers 00:00:00 00:00:00 Santiago 37948.1.1 ity of 3.104.2.7 [place] .3.696935 Medica l .8 [place] 2020-01-26 2020-01-26 Emergency Caridad, 1.2.840.3 [id number] Univers 10:03:00 13:05:00 Cynhoward 61228.1.1 ity of 3.104.2.7 [place] .3.702219 Medica l .8 [place] 2020-01-26 2020-01-26 Travel 1.2.840.1 1.2.122.607 [id number] Univers 00:00:00 00:00:00 54509.1.1 350.1.13.10 ity of 3.104.2.[place]3.698 [place] .[place] 084.8 Medica l .8 [place] 2020-01-25 2020-01-25 Outpatient R EAST, [facility] [id number] Univers 08:30:00 08:30:00 SANTIAGO ity of [facility] 2020-01-25 2020-01-25 Telemedici [place], 1.2.840.5 [id number] Univers 07:36:49 08:06:49 ne Visit Santiago 49624.1.1 ity of 3.104.2.7 [place] .3.887287 Medica l .8 [place] 2020-01-16 2020-01-16 Outpatient R EAST, [facility] [id number] Univers 08:00:00 08:00:00 SANTIAGO ity [facility] 2020-01-16 2020-01-16 Telephone [place], 1.2.840.3 [id number] Univers 00:00:00 00:00:00 Santiago 73687.1.1 ity of 3.104.2.7 [place] .3.051326 Medica l .8 [place] 2020-01-14 2020-01-14 Outpatient R SELF, [facility] [id number] Univers 08:00:00 08:00:00 GADIEL rodas [facility] 2019-12-31 2019-12-31 Outpatient R SELF, [facility] [id number] Univers 08:45:00 08:45:00 GADIEL vogel f [facility] 2019-10-17 2019-10-17 Outpatient R EAST, [facility] [id number] Univers 08:30:00 08:30:00 SANTIAGO ity [facility] 2019-10-12 2019-10-12 Outpatient R EAST, [facility] [id number] Univers 13:00:00 13:00:00 SANTIAGO ity [facility] 2019-10-12 2019-10-12 Telemedici [place], 1.2.840.6 [id number] Univers 07:38:30 08:08:30 ne Visit Santiago 85971.1.1 ity of 3.104.2.7 [place] .3.409402 Medica l .8 [place] 2019-10-08 2019-10-08 Outpatient R SELF, [facility] [id number] Univers 10:15:00 10:15:00 GADIEL rodas [facility] 2019-10-03 2019-10-03 Jorge Hagen, 1.2.840.9 [id number] Univers 00:00:00 00:00:00 Management Michael Corbin 78422.1.1 i ty of 3.104.2.7 [place] .3.990890 Medica l .8 [place] 2019-09-27 2019-09-27 Telephone [place], 1.2.840.0 [id number] Univers 00:00:00 00:00:00 [place] 74673.1.1 ity of 3.104.2.7 [place] .3.011829 Medica l .8 [place] 2019-09-04 2019-09-04 Refill [place], 1.2.840.6 [id number] Univers 00:00:00 00:00:00 [place] 84728.1.1 ity of 3.104.2.7 [place] .3.462453 Medica l .8 [place] 2019-07-24 2019-07-24 Outpatient R [facility] [id number] Univers 08:30:00 08:30:00 SANTIAGO ity [facility] 2019-07-17 2019-07-17 Outpatient R [facility] [id number] Univers 10:00:00 10:00:00 SANTIAGO ity [facility] 2019-06-15 2019-06-15 Telephone [place], 1.2.840.7 [id number] Univers 00:00:00 00:00:00 [place] 98239.1.1 ity of 3.104.2.7 [place] .3.197970 Medica l .8 [place] 2019-06-13 2019-06-13 Telephone Team, [facility] 1.2.840.8 [id number] Univers 00:00:00 00:00:00 Health 97696.1.1 [place] .[place] Med[place] .8 [place] 2019-05-10 2019-05-10 Refill [place], 1.2.840.1 [id number] Univers 00:00:00 00:00:00 [place] 45889.1.1 ity of 3.104.2.7 [place] .3.911523 Medica l .8 [place] 2019-05-09 2019-05-09 Refill Ronald, 1.2.840.4 [id number] Univers 00:00:00 00:00:00 [place] 15269.1.1 ity of 3.104.2.7 [place] .3.654615 Medica l .8 [place] 2019-04-30 2019-04-[address] [facility], [facility] [id number] Univers 10:15:00 10:33:05 GADIEL barbosa o f [facility] 2019-04-18 2019-04-18 Treasury Agent [place] Cardenas 1.2.840.1 [id number] Univers 10:00:39 10:44:31 Visit [facility] 56630.1.1 ity of 3.104.2.7 [place] .3.552193 Medica l .8 [place] 2019-04-18 2019-04-18 Outpatient R RONALD, [facility] [id number] Univers 10:00:00 10:44:31 SANTIAGO ity of [facility] 2019-04-18 2019-04-18 Office Ronald, 1.2.840.8 [id number] Univers 08:27:44 09:53:27 Visit Santiago 28187.1.1 ity of 3.104.2.7 [place] .3.138933 Medica l .8 [place] 2019-04-18 2019-04-18 Orders Doctor 1.2.840.0 [id number] Univers 00:00:00 00:00:00 Only Unassigned, 46223.1.1 ity of [place] 3.104.2.7 [place] .3.051394 Medica l .8 [place] 2019-04-11 2019-04-11 Refill [place], 1.2.840.5 [id number] Univers 00:00:00 00:00:00 [place] 00714.1.1 ity of 3.104.2.7 [place] .3.959985 Medica l .8 [place] 2019-04-09 2019-04-09 Refill Ronald, 1.2.840.8 [id number] Univers 00:00:00 00:00:00 [place] 64629.1.1 ity of 3.104.2.7 [place] .3.386789 Medica l .8 [place] 2019-04-03 2019-04-03 Telephone Team, [facility] 1.2.840.0 [id number] Univers 00:00:00 00:00:00 Health 89329.1.1 [place]3.0636[place] Med[place] l .8 [place] 2019-03-27 2019-03-27 Telephone Self, 1.2.840.1 [id number] Univers 00:00:00 00:00:00 Gadiel 59254.1.1 ity of 3.104.2.7 [place] .3.421280 Medica l .8 [place] 2019-01-17 2019-01-17 Office Ronald, 1.2.840.3 [id number] Univers 07:37:21 10:32:51 Visit Santiago 13571.1.1 ity of 3.104.2.7 [place] .3.949452 Medica l .8 [place] 2019-01-04 2019-01-12 Office Tyrone Eveline 1.2.840.1 [id number] Univers 11:19:32 11:08:05 Visit Mariela 61238.1.1 ity of 3.104.2.7 [place] .3.703627 Medica l .8 Branch 2019-01-10 2019-01-10 Telephone Stanislav, 1.2.840.8 [id number] Univers 00:00:00 00:00:00 Eladio Storm 09778.1.1 ity of 3.104.2.7 [place] .3.189549 Medica l .8 Branch 2018-12-18 2018-12-18 Office Geraldine, 1.2.840.1 [id number] Univers 08:48:45 09:13:43 Visit Leyda 69775.1.1 it y of 3.104.2.7 [place] .3.327162 Medica l .8 [place] 2018-10-30 2018-10-30 Telephone Ronald, 1.2.840.1 [id number] Univers 00:00:00 00:00:00 [place] 15079.1.1 ity of 3.104.2.7 [place] .3.567153 Medica l .8 [place] 2018-10-23 2018-10-23 Orders Doctor 1.2.840.7 [id number] Univers 00:00:00 00:00:00 Only Unassigned, 93264.1.1 ity of [place] 3.104.2.7 [place] .3.028725 Medica l .8 [place] 2018-10-23 2018-10-23 Nurse Selvin, 1.2.840.9 [id number] Univers 00:00:00 00:00:00 Triage Stefanie 86500.1.1 ity of 3.104.2.7 [place] .3.537898 Medica l .8 [place] 2018-10-23 2018-10-23 Telephone Self, 1.2.840.5 [id number] Univers 00:00:00 00:00:00 Gadiel 92361.1.1 ity of 3.104.2.7 [place] .3.826429 Medica l .8 [place] 2018-10-20 2018-10-20 Telephone Self, 1.2.840.0 [id number] Univers 00:00:00 00:00:00 Gadiel 98239.1.1 ity of 3.104.2.7 [place] .3.643105 Medica l .8 [place] Results Test Description Test Time Test Comments Results Result Comments Source BLOOD CULTURE SCREEN 2022-02-16 06:01:07 Test Item Value Reference Range Interpretation Comme nts Blood Culture-Aerobic (test No organisms isolated No growth Previous preliminary code = 30551-9) verified res ult was Culture In Prog ress on 02/11/2022 at 04 01 CDTPrevious pre liminary verified result was No growth at 24 ho urs on 02/12/2022 at 01 01 CDTPrevious pre liminary verified result was No growth at 48 ho urs on 02/13/2022 at 01 CDTPrevious pre liminary verified result was No growth at 72 ho urs on 02/14/2022 at 01 01 CDT Blood Culture-Anaerobic No organisms isolated No growth Previous preliminary (test code = 63601-3) verifi ed result was Culture In Prog ress on 02/11/2022 at 04 01 CDTPrevious pre liminary verified result was No growth at 24 ho urs on 02/12/2022 at 01 01 CDTPrevious pre liminary verified result was No growth at 48 ho urs on 02/13/2022 at 05 23 CDTPrevious pre liminary verified result was No growth at 72 ho urs on 02/14/2022 at 01 CDT Lab Interpretation (test Normal code = 80589-4) [facility] CULTURE [id number] 06:01:07 Test Item Value Reference Range Interpretation Comments Blood Culture-Aerobic No organisms No growth Previo us (test code = 11123-2) isolated prelim inary verified result was Culture [...] Culture-Anaerobic isolated preliminar y (test code = 67002-0) verifi ed result was Culture In Progress [...] CDT Lab Interpretation Normal (test code = 59068-8) [facility] CULTURE [id number] 06:01:07 Test Item Value Reference Range Interpretation Comments Blood Culture-Aerobic No organisms No growth Previo us (test code = 99209-3) isolated prelim inary verified result was Culture In Progress on 02/11/2022 at 04 CDTPrevious preliminary verified result was No growth a t 24 hours on 02/12/2022 at 05 23 CDTPrevious preliminary verified result was No growth a t 48 hours on 02/13/2022 at 01 CDTPrevious preliminary verified result was No growth a t 72 hours on 02/14/2022 at 05 23 CDT Blood No organisms No growth Previous Culture-Anaerobic isolated preliminar y (test code = 24776-2) verifi ed result was Culture In Progress [...] CDT Lab Interpretation Normal (test code = 59292-6) [facility] [id number] 10:49:10 Test Item Value Reference Range Interpretation Comments NT-proBNP (test code 2660 pg/mL See_Comment H [Autom ated = 0800310002) message] The system which generated this result transmitted reference range : <=125. The reference range was not used to interpret this result as normal/abnormal . KYLE (test code = KYLE) Biotin has been reported to cause a negative bias, interpret results relative to patient's use of biotin. Lab Interpretation Abnormal (test code = 49143-7) [facility] [id number] 10:49:10 Test Item Value Reference Range Interpretation Comments NT-proBNP (test code 2660 pg/mL See_Comment H [Autom ated = 0599641828) message] The system which generated this result transmitted reference range : <=125. The reference range was not used to interpret this result as normal/abnormal . KYLE (test code = KYLE) Biotin has been reported to cause a negative bias, interpret results relative to patient's use of biotin. Lab Interpretation Abnormal (test code = 75990-0) [facility] (NA, K, CL, CO2, GLUCOSE, BUN, CREATININE, CA)2022-02-15 10:44:07 Test Item Value Reference Range Interpretation Comments NA (test code = 134 mmol/L 135-145 L 0635580028) K (test code = 3.2 mmol/L 3.5-5 L 7484577808) CL (test code = 98 mmol/L 98-108 8942742066) CO2 TOTAL (test code = 27 mmol/L 23-31 2223634621) AGAP (test code = 2-16 0506250944) BUN (test code = 19 mg/dL 7-23 6459268354) GLUCOSE (test code = 102 mg/dL 70-110 8790354297) CREATININE (test code = 0.95 mg/dL 0.5-1.04 1188387089) CALCIUM (test code = 8.5 mg/dL 8.6-10.6 L 8972252085) eGFR (test code = mL/min/1.73m2 3264489554) KYLE (test code = KYLE) Association of [...] tests). Lab Interpretation Abnormal (test code = 52599-1) [facility] 10:44:07 Test Item Value Reference Range Interpretation Comments MAGNESIUM (test code = 0299623111) 1.8 mg/dL 1.7-2.4 Lab Interpretation (test code = Normal 04555-5) [facility]2022-09-26 10:44:07 Test Item Value Reference Range Interpretation Comments MAGNESIUM (test code = 4684496353) 1.8 mg/dL 1.7-2.4 Lab Interpretation (test code = Normal 26815-7) [facility] METABOLIC PANEL (NA, K, CL, CO2, GLUCOSE, BUN, CREATININE, CA)2022-02-15 10:44:07 Test Item Value Reference Range Interpretation Comments NA (test code = 134 mmol/L 135-145 L 1128944461) K (test code = 3.2 mmol/L 3.5-5.0 L 5226474767) CL (test code = 98 mmol/L 98-108 8948006100) CO2 TOTAL (test code = 27 mmol/L 23-31 3097051040) AGAP (test code = 2-16 7461271596) BUN (test code = 19 mg/dL 7-23 1163490139) GLUCOSE (test code = 102 mg/dL 70-110 5094598554) CREATININE (test code = 0.95 mg/dL 0.50-1.04 9481107946) CALCIUM (test code = 8.5 mg/dL 8.6-10.6 L 9175731983) eGFR (test code = mL/min/1.73m2 3088175136) KYLE (test code = KYLE) Association of [...] tests). Lab Interpretation Abnormal (test code = 84731-9) [facility] WITH [id number] 10:12:06 Test Item Value Reference Range Interpretation [...] RDW-SD (test code = 47.8 fL 39-49.9 05525-3) RDW-CV (test code = 15.2 % 12-15.5 788-0) PLT (test code = See_Comment L [Automated 777-3) message] The sy stem which generated this result transmitted reference range : 166 - 358 10*3/ ?L. The reference r abbey was not used to interpret this result as normal/abnormal . MPV (test code = 8.9 fL 9.5-12.9 L 23019-3) NRBC/100 WBC (test See_Comment [Automat ed code = 5815681322) message] The system which generated this result transmitted reference range : 0.0 - 10.0 /100 WBCs. The refer ence range was not u sed to interpret th is result as normal/abnormal . NRBC x10^3 (test code See_Comment [Auto mated = 8462563962) message] The s ystem which generated this result transmitted reference range : 10*3/?L. The reference range was not used to interpret this result as normal/abnormal . GRAN MAT (NEUT) % 65.9 % (test code = 770-8) IMM GRAN % (test code 0.30 % = 5956345964) LYMPH % (test code = 21.0 % 736-9) MONO % (test code = 10.1 % 5905-5) EOS % (test code = 2.4 % 713-8) BASO % (test code = 0.3 % 706-2) GRAN MAT x10^3(ANC) 2.49 10*3/uL 1.88-7.09 (test code = 0250551448) IMM GRAN x10^3 (test 0-0.06 code = 9551089478) LYMPH x10^3 (test code 0.79 10*3/uL 1.32-3.29 L = 731-0) MONO x10^3 (test code 0.38 10*3/uL 0.33-0.92 = 742-7) EOS x10^3 (test code = 0.09 10*3/uL 0.03-0.39 711-2) BASO x10^3 (test code 0.01-0.07 = 704-7) Lab Interpretation Abnormal (test code = 82429-4) [facility] WITH [id number] 10:12:06 Test Item Value Reference Range Interpretation [...] . HGB (test code = 10.6 g/dL 11.6-15.0 L 718-7) HCT (test code = 31.2 % 35.7-45.2 L 4544-3) MCV (test code = 89.7 fL 80.6-95.5 787-2) MCH (test code = 30.5 pg 25.9-32.8 785-6) MCHC (test code = 34.0 g/dL 31.6-35.1 786-4) RDW-SD (test code = 47.8 fL 39.0-49.9 39963-2) RDW-CV (test code = 15.2 % 12.0-15.5 788-0) PLT (test code = See_Comment L [Automated 777-3) message] The sy stem which generated this result transmitted reference range : 166 - 358 10*3/ ?L. The reference r abbey was not used to interpret this result as normal/abnormal . MPV (test code = 8.9 fL 9.5-12.9 L 44775-9) NRBC/100 WBC (test See_Comment [Automat ed code = 3816939946) message] The system which generated this result transmitted reference range : 0.0 - 10.0 /100 WBCs. The refer ence range was not u sed to interpret th is result as normal/abnormal . NRBC x10^3 (test code See_Comment [Auto mated = 4867597652) message] The s ystem which generated this result transmitted reference range : 10*3/?L. The reference range was not used to interpret this result as normal/abnormal . GRAN MAT (NEUT) % 65.9 % (test code = 770-8) IMM GRAN % (test code 0.30 % = 9986615459) LYMPH % (test code = 21.0 % 736-9) MONO % (test code = 10.1 % 5905-5) EOS % (test code = 2.4 % 713-8) BASO % (test code = 0.3 % 706-2) GRAN MAT x10^3(ANC) 2.49 10*3/uL 1.88-7.09 (test code = 7372449731) IMM GRAN x10^3 (test 0.00-0.06 code = 6413028283) LYMPH x10^3 (test code 0.79 10*3/uL 1.32-3.29 L = 731-0) MONO x10^3 (test code 0.38 10*3/uL 0.33-0.92 = 742-7) EOS x10^3 (test code = 0.09 10*3/uL 0.03-0.39 711-2) BASO x10^3 (test code 0.01-0.07 = 704-7) Lab Interpretation Abnormal (test code = 91078-7) [facility] WITH [id number] 11:18:28 Test Item Value Reference Range Interpretation [...] RDW-SD (test code = 49.5 fL 39-49.9 66442-9) RDW-CV (test code = 15.5 % 12-15.5 788-0) PLT (test code = See_Comment L [Automated 777-3) message] The sy stem which generated this result transmitted reference range : 166 - 358 10*3/ ?L. The reference r abbey was not used to interpret this result as normal/abnormal . MPV (test code = 11.4 fL 9.5-12.9 13080-0) IPF % (test code = 8.7 % 1.3-7.7 H Platelet count 6418784570) measured by fluorescence method. NRBC/100 WBC (test See_Comment [Automat ed code = 6279633711) message] The system which generated this result transmitted reference range : 0.0 - 10.0 /100 WBCs. The refer ence range was not u sed to interpret th is result as normal/abnormal . NRBC x10^3 (test code See_Comment [Auto mated = 2234707027) message] The s ystem which generated this result transmitted reference range : 10*3/?L. The reference range was not used to interpret this result as normal/abnormal . GRAN MAT (NEUT) % 62.0 % (test code = 770-8) IMM GRAN % (test code 0.80 % = 7759551357) LYMPH % (test code = 22.2 % 736-9) MONO % (test code = 9.6 % 5905-5) EOS % (test code = 5.1 % 713-8) BASO % (test code = 0.3 % 706-2) GRAN MAT x10^3(ANC) 2.21 10*3/uL 1.88-7.09 (test code = 1425809527) IMM GRAN x10^3 (test 0.03 10*3/uL 0-0.06 code = 5018632621) LYMPH x10^3 (test code 0.79 10*3/uL 1.32-3.29 L = 731-0) MONO x10^3 (test code 0.34 10*3/uL 0.33-0.92 = 742-7) EOS x10^3 (test code = 0.18 10*3/uL 0.03-0.39 711-2) BASO x10^3 (test code 0.01-0.07 = 704-7) POLYCHROMASIA (test 2+ See_Comment [Automa arpit code = 52856-3) message] The system which generated this result [...] . Lab Interpretation Abnormal (test code = 67152-8) [facility] METABOLIC PANEL (NA, K, CL, CO2, GLUCOSE, BUN, CREATININE, CA)2022-02-13 10:39:07 Test Item Value Reference Range Interpretation Comments NA (test code = 136 mmol/L 135-145 7050536098) K (test code = 4.1 mmol/L 3.5-5 0810541884) CL (test code = 102 mmol/L 98-108 7002840220) CO2 TOTAL (test code = 27 mmol/L 23-31 4662351985) AGAP (test code = 2-16 3610104420) BUN (test code = 22 mg/dL 7-23 5377457012) GLUCOSE (test code = 94 mg/dL 70-110 3046885953) CREATININE (test code = 0.94 mg/dL 0.5-1.04 5318168583) CALCIUM (test code = 8.1 mg/dL 8.6-10.6 L 4081230974) eGFR (test code = mL/min/1.73m2 6756976931) KYLE (test code = KYLE) Association of [...] tests). Lab Interpretation Abnormal (test code = 21457-8) [facility]2022-02-12 01:50:10 Test Item Value Reference Range Interpretation Comments Height (test code = in 9571389972) Weight (test code = lbs 1544877952) Systolic BP (test code mmHg = 8411960086) Diastolic BP (test code mmHg = 3479711679) Heart Rate (test code = bpm 2871484760) BSA (test code = 1.85 m2 1385786563) IVS (test code = 1.22 cm 9001804200) Interventricular Septum 1.22 cm Diastolic Thickness by 2D (test code = 4237121) LVIDD (test code = 5.00 cm 4561442204) Left Ventricular End 117.9 mL Diastolic Volume by Teichholz Method (test code = 0553700) LVPWD (test code = 1.22 cm 6886004002) PW (test code = 1.22 cm 0.6-1.5 9133500756) EF(Teich) (test code = 74.60 % 7555434028) LVIDS (test code = 2.80 cm 8917925192) Left Ventricular End 29.9 mL Systolic Volume by Teichholz Method (test code = 8471772) FS (test code = 44 % 5172467610) EF - 2D (test code = 74.60 % 29852187) LVOT diameter (test 2.16 cm code = 7727034887) LVOT area (test code = 3.70 cm2 2660697657) Ao root diam (test code 3.40 cm = 0472391427) Aortic root (test code 3.4 cm = 2094312889) Ao root annulus (test 3.4 cm code = 6068460638) LA size (test code = 3.4 cm 6051018771) TR Peak Spencer (test code 330.0 cm/s = 8710349469) Triscuspid Valve mmHg Regurgitation Peak Gradient (test code = 4328326118) PV REGURGITATION PEAK mmHg GRADIENT (test code = 3473075457) PI dec slope (test code 137.20 cm/s2 = 1001689316) LAV(MOD-sp4) (test code 102.90 mL = 7918137961) MV Peak E Spencer (test 84.1 cm/s code = 8976834703) MV Peak A Spencer (test 40.1 cm/s code = 4614864019) E/A ratio (test code = ratio 8976865509) MV valve area p 1/2 3.70 cm2 method (test code = 4870065322) MV dec slope (test code 413.00 cm/s2 = 3545998613) MV P1/2t max spencer (test 83.70 cm/s code = 1599670796) MV Prop V (test code = 41.80 cm/s 4956397400) Tapse (test code = 1.83 cm 0089152268) LVOT stroke volume 96.90 cm3 (test code = 2901597404) LVOT peak spencer (test 125.5 cm/s code = 3701754905) LVOT mn grad (test code mmHg = 4493422025) AV LVOT peak gradient mmHg (test code = 4271521019) LVOT peak VTI (test 26.4 cm code = 6593431283) LV V1 mean (test code = 78.10 cm/s 6403771667) Aortic valve mean 103.7 cm/s velocity (test code = 8942229869) Ao peak spencer (test code 165.6 cm/s = 9326201079) Ao VTI (test code = 37.2 cm 3776217720) AV area by cont VTI 2.6 cm2 (test code = 8987496351) AV area peak spencer (test 2.8 cm2 code = 6188052697) Ao max PG (test code = 11.00 mm[Hg] 2499873848) AV peak gradient (test mmHg code = 1158202039) AV valve area (test 2.60 cm2 code = 4989726929) AV mean gradient (test mmHg code = 1293895694) LA Volume Index (BP) 55.2 mL/m2 (test code = 6322437760) LA volume (BP) (test 102.1 mL code = 5641685085) LAV(MOD-sp2) (test code 86.10 mL = 2743679188) A2C EF (test code = 61.20 % 0132185042) EF(sp2-el) (test code = 61.60 % 7303325876) SV(MOD-sp2) (test code 47.10 mL = 7941770077) LV Diastolic Volume 70.7 mL (BP) (test code = 9152702777) A4C EF (test code = 53.00 % 1424548224) EF(MOD-bp) (test code = 56.70 % 2123019033) EF(sp4-el) (test code = 53.90 % 6751058287) LV Systolic Volume (BP) 30.6 mL (test code = 8262805027) SV(MOD-bp) (test code = 40.10 mL 8829518934) SV(MOD-sp4) (test code 32.40 mL = 0211331782) SV(sp4-el) (test code = 33.10 mL 5277896919) EF (test code = 9760697583) Left Ventricular Stroke 40.1 mL Volume by 2-D Biplane-MOD (test code = 7078543) LV Diastolic Volume 38.2 mL/m2 Index (BP) (test code = 6760078270) LV Systolic Volume 16.5 mL/m2 Index (BP) (test code = 1729255197) Radiology Study observation (narrative) (test code = 12646-3) KYLE (test code = KYLE) ?Left?Ventricle: Left [...] motion is normal. [facility] [id number] 05:45:01 Test Item Value Reference Interpretation Comments Range TROPONIN I (test See_Comment [Automated code = 5427494621) message] The system which generated this result [...] biotin. Lab Interpretation Normal (test code = 34625-9) [facility] [id number] 05:41:40 Test Item Value Reference Range Interpretation Comments NT-proBNP (test code 4250 pg/mL See_Comment H [Autom ated = 1495812685) message] The system which generated this result transmitted reference range : <=125. The reference range was not used to interpret this result as normal/abnormal . KYLE (test code = KYLE) Biotin has been reported to cause a negative bias, interpret results relative to patient's use of biotin. Lab Interpretation Abnormal (test code = 25286-4) [facility] THRM[facility] [id number] 05:35:21 Test Item Value Reference Range Interpretation Comments APTT Patient (test See_Comment [Automat ed code = 3173-2) message] The system which generated this result transmitted reference range : 23 - 38 Seconds . The reference range was not used to interpr et this result as normal/abnormal . KYLE (test code = KYLE) The [facility] patient population mean normal value for aPTT is 30 seconds. Lab Interpretation Normal (test code = 70867-8) [facility] THRM[facility]AS [id number] 05:35:21 Test Item Value Reference Range Interpretation Comments APTT Patient (test See_Comment [Automat ed code = 3173-2) message] The system which generated this result transmitted reference range : 23 - 38 Seconds . The reference range was not used to interpr et this result as normal/abnormal . KYLE (test code = KYLE) The [facility] patient population mean normal value for aPTT is 30 seconds. Lab Interpretation Normal (test code = 86711-0) [facility] Temple[facility]HROM[facility] TIME / [id number] 05:33:21 Test Item Value Reference Range Interpretation Comments PROTIME PATIENT (test See_Comment [Auto mated message] code = 5964-2) The system [employer] generated this result transmitted ref erence range: 12.0 - 1 4.7 Seconds. The re ference range was not u sed to interpret this result as normal/abnor mal. INR (test code = 6301-6) Nor mal INR <1.1; Warfarin Therap eutic range 2.0 to 3. 0 or 2.5 to 3.5, dep ending upon the indica tions. Lab Interpretation (test Normal code = 99416-2) [facility]. METABOLIC PANEL ([id number])2022-02-11 05:33:21 Test Item Value Reference Range Interpretation Comments NA (test code = 137 mmol/L 135-145 6939256364) K (test code = 4.3 mmol/L 3.5-5 8594991251) CL (test code = 103 mmol/L 98-108 7628578473) CO2 TOTAL (test code = 25 mmol/L 23-31 7134860030) AGAP (test code = 2-16 9804232325) BUN (test code = 19 mg/dL 7-23 1510656923) GLUCOSE (test code = 120 mg/dL 70-110 H 0811293758) CREATININE (test code = 1.15 mg/dL 0.5-1.04 H 8709873564) TOTAL BILI (test code = 0.9 mg/dL 0.1-1.8 3070416572) CALCIUM (test code = 8.9 mg/dL 8.6-10.6 0517405460) T PROTEIN (test code = 6.6 g/dL 6.3-8.2 9296056903) ALBUMIN (test code = 4.0 g/dL 3.5-5 7302701786) ALK PHOS (test code = 73 U/L 34-122 9150847774) ALTv (test code = 18 U/L 5-35 1742-6) AST(SGOT) (test code = 31 U/L 13-40 5948820411) eGFR (test code = mL/min/1.73m2 3584074151) KYLE (test code = KYLE) Association of [...] tests). Lab Interpretation Abnormal (test code = 66046-1) [facility]. METABOLIC PANEL ([id number])2022-02-11 05:33:21 Test Item Value Reference Range Interpretation Comments NA (test code = 137 mmol/L 135-145 6288834693) K (test code = 4.3 mmol/L 3.5-5.0 6631385618) CL (test code = 103 mmol/L 98-108 5213502928) CO2 TOTAL (test code = 25 mmol/L 23-31 7968468045) AGAP (test code = 2-16 7185226508) BUN (test code = 19 mg/dL 7-23 6524474501) GLUCOSE (test code = 120 mg/dL 70-110 H 7094892332) CREATININE (test code = 1.15 mg/dL 0.50-1.04 H 1978217538) TOTAL BILI (test code = 0.9 mg/dL 0.1-1.3 9884812825) CALCIUM (test code = 8.9 mg/dL 8.6-10.6 3965135189) T PROTEIN (test code = 6.6 g/dL 6.3-8.2 9493536188) ALBUMIN (test code = 4.0 g/dL 3.5-5.0 4163552246) ALK PHOS (test code = 73 U/L 34-122 3394945024) ALTv (test code = 18 U/L 5-35 1742-6) AST(SGOT) (test code = 31 U/L 13-40 3277232713) eGFR (test code = mL/min/1.73m2 2025048730) KYLE (test code = KYLE) Association of [...] tests). Lab Interpretation Abnormal (test code = 00907-1) [facility] [id number] 05:33:21 Test Item Value Reference Range Interpretation [...] tions. Lab Interpretation (test Normal code = 30427-2) [facility] WITH [id number] 05:14:37 Test Item Value Reference Range Interpretation Comments WBC (test code = See_Comment [Automated 5990-2) message] The sy stem which generated this result transmitted reference range : 4.30 - 11.10 10*3/?L. The reference range was not used to interpret this result as normal/abnormal . RBC (test code = See_Comment L [Automated 429-8) message] The sy stem which generated this [...] RDW-SD (test code = 47.9 fL 39-49.9 25691-5) RDW-CV (test code = 14.9 % 12-15.5 788-0) PLT (test code = See_Comment L [Automated 777-3) message] The sy stem which generated this result transmitted reference range : 166 - 358 10*3/ ?L. The reference r abbey was not used to interpret this result as normal/abnormal . MPV (test code = 9.1 fL 9.5-12.9 L 94126-3) NRBC/100 WBC (test See_Comment [Automat ed code = 9980039560) message] The system which generated this result transmitted reference range : 0.0 - 10.0 /100 WBCs. The refer ence range was not u sed to interpret th is result as normal/abnormal . NRBC x10^3 (test code See_Comment [Auto mated = 2626754379) message] The s ystem which generated this result transmitted reference range : 10*3/?L. The reference range was not used to interpret this result as normal/abnormal . GRAN MAT (NEUT) % 78.5 % (test code = 770-8) IMM GRAN % (test code 0.20 % = 7632509652) LYMPH % (test code = 11.6 % 736-9) MONO % (test code = 8.4 % 5905-5) EOS % (test code = 1.1 % 713-8) BASO % (test code = 0.2 % 706-2) GRAN MAT x10^3(ANC) 3.45 10*3/uL 1.88-7.09 (test code = 6514423132) IMM GRAN x10^3 (test 0-0.06 code = 4588692108) LYMPH x10^3 (test code 0.51 10*3/uL 1.32-3.29 L = 731-0) MONO x10^3 (test code 0.37 10*3/uL 0.33-0.92 = 742-7) EOS x10^3 (test code = 0.05 10*3/uL 0.03-0.39 711-2) BASO x10^3 (test code 0.01-0.07 = 704-7) Lab Interpretation Abnormal (test code = 89359-8) [facility] Coronavirus 2019 Eufsgdr0985-61-69 18:08:00 Test Item Value Reference Range Interpretation [...] det ection of nucleic acids f rom eroHMUD-DqX-9 v irus and diagnosis of SA RS-CoV-2 virusinfection. It is an Emergency Use Authorization ( EUA) testauthorized by the U.S. FDA. BASIC METABOLIC [id number] 09:37:00 Test Item Value Reference Range Interpretation [...] = 9.0 mg/dL 8.0-10.5 N CA) PROTHROMBIN CCBZ1947-38-94 09:32:00 Test Item Value Reference Range Interpretation [...] (to prevent recurrent infar ct). 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 [facility] - XR CHEST 1 [id number] 00:00:00 [facility] 1955 Sex: F FAX: Carmenza Kelly DO [phone] [place]: St: ADM FAX: Mike Scales MD [phone] FAX: Bahman Chopra [phone] Name: LIO WATTS [facility] : 1955 Age/S: 66/F [address] [place] [address] Unit #: [id number] Loc: [place] [address] Phys: Bahman Chopra [facility] Acct: [id number] Dis Date: Status: ADM IN PHONE #: [phone] Exam Date: 06/17/2021 1320 FAX #: [phone] Reason: WATCHMAN EX AMS: CPT CODE: [id number] XR CHEST 1 V 13437 PROCEDURE INFORMATION: Exam: XR Chest Exam date and time: 06/17/2021 12:09 PM Age: 66 years old Clinical indication: Other: Watchman TECHNIQUE: Imaging protocol: XR of the chest. Views: 1 view. Other technique: AP portable chest obtained, positioning not ind icated as supine or otherwise. COMPARISON: DX XR [...] Lund MD; Bahman Chopra Technologist: RT Taylor(R) Trnilrd Date/Time/By: 06/17/2021 (104) : By: Susanna Orig Print D/T: S: 06/17/2021 (6712) PAGE 1 Signed ReportCOVID 19 Asymptomatic IH [id number] 12:29:00 Test Item Value Reference Range Interpretation [...] high or waivedcomplexit y tests. BASIC METABOLIC [id number] 11:37:00 Test Item Value Reference Range Interpretation [...] code = 9.0 mg/dL 8.0-10.5 N CA) SMRIVAHOBZ0069-62-12 11:37:00 Test Item Value Reference Range Interpretation Comments PREALBUMIN (test code = PREALB) 24.3 mg/dL 16.0-40.0 N PROTHROMBIN LJIS2674-89-37 11:03:00 Test Item Value Reference Range Interpretation [...] (to prevent recurrent infar ct). CBC W/AUTO SKOJ0599-05-19 10:59:00 Test Item Value Reference Range Interpretation [...] 0.0-0.1 N NRBC#) - XR CHEST 2 [id number] 00:00:00 [facility] 1955 Sex: F FAX: Carmenza Kelly [phone] [place]: St: PRE FAX: Mike Scales MD [phone] Name: LIO WATTS [facility] : 1955 Age/S: 66/F [address] [place] [address] Unit #: [id number] Loc: [place] [address] Phys: Mike Lund MD Acct: [id number] Dis Date: Status: [facility] PHONE #: [phone] Exam Date : 06/16/2021 1120 FAX #: [phone] Reason: PREOP EXAMS: CPT CODE: [id number] XR CHEST 2 V 69237 PROCEDURE INFORMATION: Exam: XR Chest Exam date [...] Technologist: Danielle Nix RT(R) Trnscrd Date/Time/By: 06/16/2021 (5545) : By: [email or web address] Orig Print D/T: S: 06/16/2021 (5763) PAGE 1 Signed ReportGastrointestinal jakzp0875-47-11 04:35:05 Test Item Value Reference Interpretation Comments [...] Rotavirus PCR (test Not Detected code = 8016811) Salmonella PCR (test Not Detected code = [...] PCR Not Detected (test code = 7124) [facility] dzeawdz0929-36-20 19:30:47 Test Item Value Reference Range Interpretation Comments Case number (test [id number] code = 8587668) Surgical pathology See link below for PDF report (test code = Lab Report 2255) Result status (test This is Supplemental code = 4241365) Report for [id number] [facility]2021-04-09 16:31:00 Test Item Value Reference Range Interpretation Comments POC Activated Clotting Time (test code 153 s = POC Activated Clotting Time) [facility]gifjqsQKTKKWSHKT5215-76-67 16:31:00 Test Item Value Reference Range Interpretation Comments POC Activated Clotting Time (test code 153 s = POC Activated Clotting Time) [facility] CenterAjzvsotDZGKBIPAKO9668-49-00 16:31:00 Test Item Value Reference Range Interpretation Comments POC Activated Clotting Time (test code 153 s = POC Activated Clotting Time) [facility] CenterEadrhdaCOISQNZEQJ9692-65-09 16:31:00 Test Item Value Reference Range Interpretation Comments POC Activated Clotting Time (test code 153 s = POC Activated Clotting Time) [facility] CenterGzokcktLSORFEGHFA5661-19-56 16:31:00 Test Item Value Reference Range Interpretation Comments POC Activated Clotting Time (test code 153 s = POC Activated Clotting Time) [facility] CenterJtasmxeBPHQFKOMXA0783-27-85 16:31:00 Test Item Value Reference Range Interpretation Comments POC Activated Clotting Time (test code 153 s = POC Activated Clotting Time) [facility] CenterCnswtyiEVFOJOPRGW5143-71-86 16:31:00 Test Item Value Reference Range Interpretation Comments POC Activated Clotting Time (test code 153 s = POC Activated Clotting Time) [facility] CenterYgyenoaNYUWXPPLUH5728-01-66 14:37:00 Test Item Value Reference Range Interpretation Comments POC Activated Clotting Time (test code 454 s = POC Activated Clotting Time) [facility] CenterJkatvpkEDWPWSTXLA8263-81-19 14:37:00 Test Item Value Reference Range Interpretation Comments POC Activated Clotting Time (test code 454 s = POC Activated Clotting Time) [facility] CenterIvymiygFTSGGIUVCR9196-47-79 14:37:00 Test Item Value Reference Range Interpretation Comments POC Activated Clotting Time (test code 454 s = POC Activated Clotting Time) [facility] CenterMrkntjvZGFTEIXGTD0300-38-63 14:37:00 Test Item Value Reference Range Interpretation Comments POC Activated Clotting Time (test code 454 s = POC Activated Clotting Time) [facility] CenterYjvkoemLNVNEIVZDY3046-99-26 14:37:00 Test Item Value Reference Range Interpretation Comments POC Activated Clotting Time (test code 454 s = POC Activated Clotting Time) [facility] CenterBsjsjevMIZQVGUENH2780-14-02 14:37:00 Test Item Value Reference Range Interpretation Comments POC Activated Clotting Time (test code 454 s = POC Activated Clotting Time) [facility] CenterRpfxsenSBERHTZZXZ7562-19-93 14:37:00 Test Item Value Reference Range Interpretation Comments POC Activated Clotting Time (test code 454 s = POC Activated Clotting Time) [facility] CenterCjudhpuQUMXWZRESV0314-78-23 14:13:00 Test Item Value Reference Range Interpretation Comments POC Activated Clotting Time (test code 354 s = POC Activated Clotting Time) [facility] CenterLzcqcreQMHGXKWLIV8376-00-33 14:13:00 Test Item Value Reference Range Interpretation Comments POC Activated Clotting Time (test code 354 s = POC Activated Clotting Time) [facility] CenterLcjialiVUZOKYDBLT7238-92-47 14:13:00 Test Item Value Reference Range Interpretation Comments POC Activated Clotting Time (test code 354 s = POC Activated Clotting Time) [facility] CenterLumimgtLBIQGEHSFT9069-23-20 14:13:00 Test Item Value Reference Range Interpretation Comments POC Activated Clotting Time (test code 354 s = POC Activated Clotting Time) [facility] CenterHuidewuGOJONYQDCJ4572-89-02 14:13:00 Test Item Value Reference Range Interpretation Comments POC Activated Clotting Time (test code 354 s = POC Activated Clotting Time) [facility] CenterMzxxakbNOWCFFRHHJ8839-97-16 14:13:00 Test Item Value Reference Range Interpretation Comments POC Activated Clotting Time (test code 354 s = POC Activated Clotting Time) [facility] CenterBfzkpvlVOWEZIXFHE8146-08-05 14:13:00 Test Item Value Reference Range Interpretation Comments POC Activated Clotting Time (test code 354 s = POC Activated Clotting Time) [facility] WQCKPTL6812-02-82 10:37:00Negative (08/29/20 5:37 AM) [facility] [employer] IAZLQ3003-58-42 10:37:72349Shjaydcd HermannCHEM PANEL 2020-08-29 10:37:0028[facility]CHE[facility] LBXCR8945-39-93 10:37:001.01[facility] HermannCHEM OITEH0491-70-79 10:37:23147Euvhxkry HermannCHEM MMWIP3070-01-95 10:37:003.8[facility] HermannCHEM YZXDY8074-58-45 10:37:50072Cpyhqcky HermannCHEM CZXDM0880-38-08 10:37:0028[facility] HermannCHEM CXMPN6857-41-12 10:37:009.8 [facility] HermannCHEM FLOVK0998-10-62 10:37:0011.8[facility] HermannCHEM PANEL 2020-08-29 10:37:0059[facility] HermannCHEM VLOXA5280-76-71 10:37:002.9[facility] YgcutuxNYMPZBTKZD7380-19-23 10:37:006.8[facility] NtjddivIGPZAEBWCP4379-55-89 10:37:004.47[facility] IcaftypZIVASICSEU3070-83-40 10:37:0010.6[facility] LNPKCUEQJK0984-87-72 10:37:0034.0[facility] YxfzuvgWLYTYUTZBZ8372-58-96 10:37:00 76.1[facility] SgwtbtoCVOYKORXLE3966-81-96 10:37:00 Test Item Value Reference Range Interpretation Comments MCH (test code = MCH) 23.8 pg 27.0-31.0 [facility] HkoovnhEZQMBSPTXQ9327-94-89 10:37:0031.3[facility] HermannHEMATOLOGY 2020-08-29 10:37:0018.2[facility] GsukyalXGIZBKAQAS3445-47-29 10:37:62001Mddfjbvs KkrkjirFBQZPGOAYQ4853-42-89 10:37:007.5[facility] HjsohsmHMLCLUQATI9379-43-90 10:37:00 Test Item Value Reference Range Interpretation Comments PT (test code = PT) 12.8 s 12.0-14.7 [facility] UyqgtxxEPJYRJFNLX1536-62-22 10:37:00 Test Item Value Reference Range Interpretation Comments INR (test code = INR) 0.97 1 0.85-1.17 [facility] UwvpgafMVQZLQYKMV3588-56-15 10:37:00 Test Item Value Reference Range Interpretation Comments PTT (test code = PTT) 25.0 s 22.9-35.8 [facility] VslneekHORKHJXCFV1380-12-75 10:37:0070.5[facility] HermannHEMATOLOGY 2020-08-29 10:37:0018.8[facility] CkvusyqSKEKZACTNW2195-13-45 10:37:009.5[facility] BkkwozrKJODSDPGET9119-54-04 10:37:000.9[facility] OjyelqlKWBNZOHPZO1832-32-24 10:37:000.3[facility] IzbbfcpKDCQLUVZXK4764-97-57 10:37:004.8[facility] ULZTTIPNPC4578-61-18 10:37:001.3[facility] NhyormtIKEUSBFZGJ0664-33-02 10:37:000.6 [facility] PwndgtpMOWJXWPCIX4105-81-96 10:37:000.1[facility] HermannHEMATOLOGY 2020-08-29 10:37:001+ *ABN*(08/29/20 5:37 AM)[facility] HumimwpMPLWKXDIIQ4785-45-51 10:37:00Not Detected (08/29/20 5:37 AM)[facility] HermannBLOOD BANK RESULTS 2020-08-29 10:37:00Negative (08/29/20 5:37 AM)[facility] HermannCHEM FVBVD9938-67-90 10:37:16842Hriiqght HermannCHEM DTCAW8504-09-02 10:37:0028[facility] HermannCHEM AZNOW6249-93-91 10:37:001.01[facility] HermannCHEM QPRXA3700-13-07 10:37:53962 [facility] HermannCHEM LMXDM5015-61-77 10:37:003.8[facility] HermannCHEM PANEL 2020-08-29 10:37:64830Mxhvlyqy HermannCHEM BYRFY6731-15-25 10:37:0028[facility] HermannCHEM LDSGI9824-44-90 10:37:009.8[facility] HermannCHEM JDRVF0944-28-94 10:37:0011.8[facility] HermannCHEM XCESO9519-30-82 10:37:0059[facility] HermannCHEM SUDFW1387-02-53 10:37:002.9[facility] LorgyvdAVKCXJFMEB9554-81-63 10:37:006.8 [facility] JmyfcioYJITRRIKNL0523-18-94 10:37:004.47[facility] HermannHEMATOLOGY 2020-08-29 10:37:0010.6[facility] GqjtcgkOKHMQXGKKZ4951-58-50 10:37:0034.0[facility] XbruwvcGUZUCCRFKK8047-01-37 10:37:0076.1[facility] AmycuvwUOFDHUGHWU5012-71-52 10:37:00 Test Item Value Reference Range Interpretation Comments MCH (test code = MCH) 23.8 pg 27.0-31.0 [facility] IdftmthXGYXIZDOGF5973-06-68 10:37:0031.3[facility] HermannHEMATOLOGY 2020-08-29 10:37:0018.2[facility] VpujqffYUMWFKIJZH2132-12-00 10:37:12697Aljjpnpr JnhdgneKWHOTCLQUN2786-66-06 10:37:007.5[facility] BobffewLBRKAHAUIQ2705-65-35 10:37:00 Test Item Value Reference Range Interpretation Comments PT (test code = PT) 12.8 s 12.0-14.7 [facility] FadfnxtTBDVGAEJDH0094-86-24 10:37:00 Test Item Value Reference Range Interpretation Comments INR (test code = INR) 0.97 1 0.85-1.17 [facility] EsgbhymJAAZWOKXUV5352-03-27 10:37:00 Test Item Value Reference Range Interpretation Comments PTT (test code = PTT) 25.0 s 22.9-35.8 [facility] PnongevOFFZBKOTUK6124-06-42 10:37:0070.5[facility] HermannHEMATOLOGY 2020-08-29 10:37:0018.8[facility] VkyliapVEPAURVLUJ1478-39-48 10:37:009.5[facility] FtfzjwiYCDLXAXMYT3655-76-62 10:37:000.9[facility] WjnzlnhZFOSACISHH7256-19-44 10:37:000.3[facility] PgvpaiaVUUSCYSMXS2527-89-86 10:37:004.8[facility] BFSFOTVSSH1176-16-39 10:37:001.3[facility] DzmqugjKAYFUYBBCV8311-60-90 10:37:000.6 [facility] JclkzimSSARGGTQHP4260-85-43 10:37:000.1[facility] HermannHEMATOLOGY 2020-08-29 10:37:001+ *ABN*(08/29/20 5:37 AM)[facility] VqwmccbPNPOPIEYYE0566-02-08 10:37:00Not Detected (08/29/20 5:37 AM)[facility] HermannBLOOD BANK RESULTS 2020-08-29 10:37:00Negative (08/29/20 5:37 AM)[facility] HermannCHEM NHPNI9953-55-09 10:37:84497Fdtsripi HermannCHEM OXTBL2284-99-88 10:37:0028[facility] HermannCHEM UIEXS7985-96-25 10:37:001.01[facility] HermannCHEM NHPOD4424-59-63 10:37:89189 [facility] HermannCHEM JZPFC6065-88-96 10:37:003.8[facility] HermannCHEM PANEL 2020-08-29 10:37:74758Udgmgiof HermannCHEM OVZCF6960-25-42 10:37:0028[facility] HermannCHEM YHYBN1212-43-91 10:37:009.8[facility] HermannCHEM BSFBC3281-28-84 10:37:0011.8[facility] HermannCHEM OILVA9094-05-22 10:37:0059[facility] HermannCHEM SIVDA9766-67-62 10:37:002.9[facility] JpcmybvVHOACQWSDF4367-44-65 10:37:006.8 [facility] XplavehVTHWHSWYPH3147-69-07 10:37:004.47[facility] HermannHEMATOLOGY 2020-08-29 10:37:0010.6[facility] SbrlqhjDPPOTKMPED8606-95-75 10:37:0034.0[facility] YcqgxuaRRTXVHMLZY0217-77-31 10:37:0076.1[facility] HezwokeZVJIAPZMIB0503-66-84 10:37:00 Test Item Value Reference Range Interpretation Comments MCH (test code = MCH) 23.8 pg 27.0-31.0 [facility] FnchmrrTAEYNJYWQE5831-73-23 10:37:0031.3[facility] HermannHEMATOLOGY 2020-08-29 10:37:0018.2[facility] FimdxmsVZIOBEVVWF0717-09-73 10:37:17364Fqtrzknm FvqiarbEZMMGPAORH0150-77-90 10:37:007.5[facility] BaddwtpWRCLLBBHWG1143-34-78 10:37:00 Test Item Value Reference Range Interpretation Comments PT (test code = PT) 12.8 s 12.0-14.7 [facility] TbzuwebZEFWHTFDLT3524-31-08 10:37:00 Test Item Value Reference Range Interpretation Comments INR (test code = INR) 0.97 1 0.85-1.17 [facility] OpwxnofINOQTWBPJW0734-28-50 10:37:00 Test Item Value Reference Range Interpretation Comments PTT (test code = PTT) 25.0 s 22.9-35.8 [facility] MfqtkkgLJHJVZCKWD3129-39-47 10:37:0070.5[facility] HermannHEMATOLOGY 2020-08-29 10:37:0018.8[facility] NrgpboyIWOZQLOOXH1046-04-26 10:37:009.5[facility] BzamytwYZCDINSAQY4130-16-22 10:37:000.9[facility] DxvmiojQANXEAHTGN6155-77-40 10:37:000.3[facility] ZkmdgfuYTHGXSMVDW2937-34-68 10:37:004.8[facility] AVGWDOMNRC0226-55-89 10:37:001.3[facility] FlldyydSNDVQWHABA2108-11-63 10:37:000.6 [facility] MbxnpxqZCJDMWWIIV5419-32-36 10:37:000.1[facility] HermannHEMATOLOGY 2020-08-29 10:37:001+ *ABN*(08/29/20 5:37 AM)[facility] RhmcqvmABXSZUVANQ1641-41-44 10:37:00Not Detected (08/29/20 5:37 AM)[facility] HermannBLOOD BANK RESULTS 2020-08-29 10:37:00Negative (08/29/20 5:37 AM)[facility] HermannCHEM WPDQF4659-47-80 10:37:05492Fzljezbd HermannCHEM UWEWE7120-94-55 10:37:0028[facility] HermannCHEM KCQLK4632-34-53 10:37:001.01[facility] HermannCHEM NTBKM2226-42-33 10:37:10618 [facility] HermannCHEM PLDNL7811-64-76 10:37:003.8[facility] HermannCHEM PANEL 2020-08-29 10:37:50957Hemyvgkf HermannCHEM PCUHB4325-17-57 10:37:0028[facility] HermannCHEM EMTOL5365-70-49 10:37:009.8[facility] HermannCHEM JRPDU4574-07-63 10:37:0011.8[facility] HermannCHEM NSXPL0354-96-30 10:37:0059[facility] HermannCHEM WIJWR5640-19-64 10:37:002.9[facility] XhouslrNSTSZIIJGF2010-33-58 10:37:006.8 [facility] RymmsgaPXIBYOCFYK4830-13-92 10:37:004.47[facility] HermannHEMATOLOGY 2020-08-29 10:37:0010.6[facility] YguvaadKPKZOTWDGB2575-36-91 10:37:0034.0[facility] VzvutesGKEWGJDFFB2043-03-47 10:37:0076.1[facility] QfocbfvIYJSAZZJJN1464-54-56 10:37:00 Test Item Value Reference Range Interpretation Comments MCH (test code = MCH) 23.8 pg 27.0-31.0 [facility] NmnhsjyXIUYEYOFVP2411-22-16 10:37:0031.3[facility] HermannHEMATOLOGY 2020-08-29 10:37:0018.2[facility] PbfwmbdYZUZJJUWRG7779-42-04 10:37:24879Mjqkfaut RzbpjmhGCWMPOEGZE4974-40-78 10:37:007.5[facility] WqqqdfeLOWLNIRTSE9758-19-95 10:37:00 Test Item Value Reference Range Interpretation Comments PT (test code = PT) 12.8 s 12.0-14.7 [facility] FigtgniYPWPIZVEGX7319-51-60 10:37:00 Test Item Value Reference Range Interpretation Comments INR (test code = INR) 0.97 1 0.85-1.17 [facility] OlmqlhiFXVKYCCUHI1172-23-98 10:37:00 Test Item Value Reference Range Interpretation Comments PTT (test code = PTT) 25.0 s 22.9-35.8 [facility] KtoiyujRCLRYGIAOF8457-08-28 10:37:0070.5[facility] HermannHEMATOLOGY 2020-08-29 10:37:0018.8[facility] YusgzlkQLDFISIHCY8496-02-97 10:37:009.5[facility] JodjivdUGTASKZEUU6538-52-01 10:37:000.9[facility] ZnyykmlJVPBNHOAJO7428-58-20 10:37:000.3[facility] SfjtjrfKRFQOXEPSE4485-98-67 10:37:004.8[facility] CDMYTPBHBZ7026-26-91 10:37:001.3[facility] LkimhryCRSYIZOOHF5932-95-32 10:37:000.6 [facility] CqeqfwwIKBGQSRGMF4779-38-17 10:37:000.1[facility] HermannHEMATOLOGY 2020-08-29 10:37:001+ *ABN*(08/29/20 5:37 AM)[facility] XnvxlssVJZKDZBYDQ9536-82-97 10:37:00Not Detected (08/29/20 5:37 AM)[facility] HermannBLOOD BANK RESULTS 2020-08-29 10:37:00Negative (08/29/20 5:37 AM)[facility] HermannCHEM PJUJL3222-74-78 10:37:83492Hhihgodb HermannCHEM DHQCK7606-88-90 10:37:0028[facility] HermannCHEM STBFW1704-00-67 10:37:001.01[facility] HermannCHEM HJJWO5809-62-83 10:37:33655 [facility] HermannCHEM MZZNF3296-94-36 10:37:003.8[facility] HermannCHEM PANEL 2020-08-29 10:37:14270Wsbgxhvl HermannCHEM WTMVK3951-23-68 10:37:0028[facility] HermannCHEM OBVVR9166-63-75 10:37:009.8[facility] HermannCHEM FTDVM5408-20-81 10:37:0011.8[facility] HermannCHEM PIRFY3973-55-01 10:37:0059[facility] HermannCHEM NEXYV0445-79-87 10:37:002.9[facility] KlrunbzFOWSTOSQXN4616-37-40 10:37:006.8 [facility] BgevcthOEBJGOOJWA9846-25-08 10:37:004.47[facility] HermannHEMATOLOGY 2020-08-29 10:37:0010.6[facility] CtvmoduPLLCBOMXYV9664-07-22 10:37:0034.0[facility] QuyzzdxGAYRNKONVR0895-55-83 10:37:0076.1[facility] RuecjdaNFTLQSFAGK6503-87-82 10:37:00 Test Item Value Reference Range Interpretation Comments MCH (test code = MCH) 23.8 pg 27.0-31.0 [facility] TemujksHMKKJNPWIP5954-87-31 10:37:0031.3[facility] HermannHEMATOLOGY 2020-08-29 10:37:0018.2[facility] FzuihfxTVLICTJAGB3721-95-64 10:37:84484Vcgurlhj WpuuuzxXZOPOZTCSK1453-16-84 10:37:007.5[facility] FctyuofYEGUOVYFOS1859-95-80 10:37:00 Test Item Value Reference Range Interpretation Comments PT (test code = PT) 12.8 s 12.0-14.7 [facility] WxosdfzTKGRIILSEV4453-99-50 10:37:00 Test Item Value Reference Range Interpretation Comments INR (test code = INR) 0.97 1 0.85-1.17 [facility] JhnpveiBRITOMMEMQ5843-20-63 10:37:00 Test Item Value Reference Range Interpretation Comments PTT (test code = PTT) 25.0 s 22.9-35.8 [facility] VirckgeKHIKFGOZGK4232-51-16 10:37:0070.5[facility] HermannHEMATOLOGY 2020-08-29 10:37:0018.8[facility] EdwqtgoRALARLIFRF7274-57-14 10:37:009.5[facility] QglurbcXLDWGGKWWY0384-40-03 10:37:000.9[facility] XgsfelsKXFFQREIJY9023-84-93 10:37:000.3[facility] SwqdhchMJCTKWDCYB8116-39-54 10:37:004.8[facility] ZGCSSOQAUB5364-17-73 10:37:001.3[facility] ZpopgfpPWYTSVLEXJ2267-64-85 10:37:000.6 [facility] JftxbvaMTIFKMNAVI2785-99-53 10:37:000.1[facility] HermannHEMATOLOGY 2020-08-29 10:37:001+ *ABN*(08/29/20 5:37 AM)[facility] EjhwalmHYTKICYRYK8547-18-62 10:37:00Not Detected (08/29/20 5:37 AM)[facility] HermannBLOOD BANK RESULTS 2020-08-29 10:37:00Negative (08/29/20 5:37 AM)[facility] HermannCHEM IESII3813-83-48 10:37:24371Wdhfthqi HermannCHEM OBHIV9091-93-67 10:37:0028[facility] HermannCHEM VSAEX3428-46-62 10:37:001.01[facility] HermannCHEM GGNOP4839-95-95 10:37:56422 [facility] HermannCHEM YHUAS8754-76-90 10:37:003.8[facility]annCHE[facility] PANEL 2020-08-29 10:37:08656Wfdlllpy HermannCHEM JTOHQ3667-15-87 10:37:0028[facility]ann[facility] QJGTO2018-58-57 10:37:009.8[facility]annCHE[facility] MEWSK5630-98-89 10:37:0011.8[facility]annCHE[facility] ZXHFC9460-29-57 10:37:0059[facility]CHE[facility] IEAEP8822-59-72 10:37:002.9[facility] FrgsvgrHTVAJTXRYO1709-04-83 10:37:006.8 [facility] WogrrcgDNMBFLRDPX2127-02-19 10:37:004.47[facility]annHEMATOLOGY 2020-08-29 10:37:0010.6[facility] IgrgcayVYXANZVAUG4443-54-91 10:37:0034.0[facility] WrovbtsIWOOHWTLAK2188-97-93 10:37:0076.1[facility] CcmahngFRVHTEFJLV0545-60-40 10:37:00 Test Item Value Reference Range Interpretation Comments MCH (test code = MCH) 23.8 pg 27.0-31.0 [facility] GuisfmbQGKCWBBQNB1162-38-62 10:37:0031.3[facility]annHEMATOLOGY 2020-08-29 10:37:0018.2[facility] IbwkqryMOUPHTBZGO4028-91-42 10:37:06161Rkwoeyoz UdiqslsLLVDOYWNLB6781-21-38 10:37:007.5[facility] EbiqdgxIHWHJUNHHG9138-97-93 10:37:00 Test Item Value Reference Range Interpretation Comments PT (test code = PT) 12.8 s 12.0-14.7 [facility] MyhbzxyADVJLWBGSH4421-04-22 10:37:00 Test Item Value Reference Range Interpretation Comments INR (test code = INR) 0.97 1 0.85-1.17 [facility] PzztczvRRPFYRSGZL0342-32-95 10:37:00 Test Item Value Reference Range Interpretation Comments PTT (test code = PTT) 25.0 s 22.9-35.8 [facility] IceifybDAXZNKOFOZ7303-49-20 10:37:0070.5[facility]annHEMATOLOGY 2020-08-29 10:37:0018.8[facility] NlgewueMYEZAMEIOR3332-71-60 10:37:009.5[facility] DrqgfoyJGLHHAFAUK3863-29-22 10:37:000.9[facility] CqxxargPDHZMTACWF2273-88-68 10:37:000.3[facility] PibepgrNYUTYVNBMX2578-76-41 10:37:004.8[facility] TEMVCEEUMS5707-93-32 10:37:001.3[facility] ZcsygupHXSQSTISIQ8580-94-85 10:37:000.6 [facility] MvwktyhAARYQMRDQG1865-58-55 10:37:000.1[facility]annHEMATOLOGY 2020-08-29 10:37:001+ *ABN*(08/29/20 5:37 AM)[facility] XzeukilLQQEKGMGUU7392-99-47 10:37:00Not Detected (08/29/20 5:37 AM)[facility]BL[facility] B[facility] RESULTS 2020-08-29 10:37:00Negative (08/29/20 5:37 AM)[facility]annCHE[facility] FCYYL9782-96-54 10:37:21146Xmhtecsf HermannCHEM MGAMP1127-32-98 10:37:0028[facility]annCHE[facility] UDRRP3962-50-35 10:37:001.01[facility]annCHE[facility] XQNSQ2939-29-16 10:37:30482 [facility] HPOBB3816-89-62 10:37:003.8[facility]annCHEM PANEL 2020-08-29 10:37:56146Rvqbflul HermannCHEM CYLSL6108-98-48 10:37:0028[facility]annCHE[facility] BHOVM6376-01-49 10:37:009.8[facility]annCHE[facility] VMNNL3257-61-12 10:37:0011.8[facility]annCHE[facility] AAUZF2671-83-63 10:37:0059[facility]CHE[facility] GQCHZ9353-71-86 10:37:002.9[facility] AgxmwmqLBDBEHVAYA2429-51-15 10:37:006.8 [facility] KdjxcxiWDRMDBTETN2187-30-94 10:37:004.47[facility]annHEMATOLOGY 2020-08-29 10:37:0010.6[facility] HwrwsroMTAYFVPIPN1885-96-54 10:37:0034.0[facility] EzqifluMIXRODNKQB4573-54-34 10:37:0076.1[facility] DivgjffKLZRKOXGFS6619-56-50 10:37:00 Test Item Value Reference Range Interpretation Comments MCH (test code = MCH) 23.8 pg 27.0-31.0 [facility] AjtvjroTOGMPWBULU4287-94-41 10:37:0031.3[facility]annHEMATOLOGY 2020-08-29 10:37:0018.2[facility] MdegbrhQRUQSCRWJK7284-48-20 10:37:32756Kxnysotn MwqlaktRFOXDLYGWU6279-70-30 10:37:007.5[facility] XeiwhmjGNIZFOCGHM2841-27-63 10:37:00 Test Item Value Reference Range Interpretation Comments PT (test code = PT) 12.8 s 12.0-14.7 [facility] CcemecbVSHAMKBEQO2223-99-72 10:37:00 Test Item Value Reference Range Interpretation Comments INR (test code = INR) 0.97 1 0.85-1.17 [facility] [id number] 10:37:00 Test Item Value Reference Range Interpretation Comments PTT (test code = PTT) 25.0 s 22.9-35.8 [facility] [id number] 10:37:0070.5[facility] 2020-08-29 10:37:0018.8[facility] [id number] 10:37:009.5[facility] TaeavkhSSLRUFKZYQ2799-07-16 10:37:000.9[facility] [id number] 10:37:000.3[facility] [id number] 10:37:004.8[facility] [id number] 10:37:001.3[facility] [id number] 10:37:000.6 [facility] [id number] 10:37:000.1[facility] 2020-08-29 10:37:001+ *ABN*(08/29/20 5:37 AM)[id number] 10:37:00Not Detected (08/29/20 5:37 AM)[facility], GC, TV,PCR, IN [id number] 15:38:00 Test Item Value Reference Range Interpretation Comments FT (test code = CHTR) Not detected (qualifier Not Detected N value) FT (test code = Not detected (qualifier Not Detected N NGONO) value) FT (test code = TRVG) Not detected (qualifier Not Detected N value) [facility] [id number] 10:57:00 Test Item Value Reference Range Interpretation Comments Color (test code = UCOLR) Dk. Yellow Clarity (test code = UCLAR) Hazy Glucose (test code = UGLUC) NEGATIVE NEGATIVE N Bilirubin (test code = UBILI) NEGATIVE NEGATIVE N Ketones (test code = UKET) NEGATIVE NEGATIVE N Specific [place] (test code = 1.025 1.005-1.030 A USPGR) [...] = None Seen None Seen N URCRYS) [facility]"
[2022-04-15] MEDS ORDERED: LORazepam 2 MG/ML VIAL ONE (14:56)
[2022-04-15] MEDS ORDERED: AMLODIPINE 5 MG TAB ONE ×2 (17:07→17:08)
[2022-04-15] MEDS ORDERED: hydrOXYzine HCL 25 MG TAB ONE (17:07)
[2022-04-15] MEDS ORDERED: HYDRALAZINE HCL 25 MG TABLET ONE (17:07)
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
[2022-04-15 18:14] VITALS: TEMP 98.6
[2022-04-15 18:17] VITALS: O2SAT 100
[2022-04-15 18:19] VITALS: BP 177/113
== END 2022-04-15 18:10 | disposition home or self-care (01) ==
LOC: ER 14:06
DX: F41.9 Anxiety disorder, unspecified (principal); I10 Essential (primary) hypertension; Z21 Asymptomatic human immunodeficiency virus [HIV] infection status; Z88.1 Allergy status to other antibiotic agents; Z88.2 Allergy status to sulfonamides; Z88.5 Allergy status to narcotic agent; Z88.8 Allergy status to other drugs, medicaments and biological substances
CPT/HCPCS: 96372; 99283

== ENCOUNTER 2022-04-16 13:50 | Emergency (ER) | payer OTHER ==
--- OUTSIDE RECORDS SUMMARY | 2022-04-16 14:06 | XMS REPORT | Continuity of Care Document ---
:1955 Author Organization [facility] t Address [address] [place] [address] Care Team Providers Name Role Phone Urmila Rahman Primary Care Physician ELAN LIRA Attending Clinician Unavailable KINJAL, BEVERLY Attending Clinician Unavailable SANTIAGO CARDENAS Attending Clinician Unavailable UNKNOWN, ATTENDING Attending Clinician Unavailable Robbi Bal Attending Clinician Santiago Sanchez Attending Clinician [facility] Attending Clinician Unavailable Stevo RAMIREZ, Isaias Arredondo Attending Clinician Unavailable TOMY MARIE Attending Clinician Unavailable Reilly Means MD Attending Clinician Ofe Shields MD Attending Clinician Tomy Marie MD Attending Clinician Doctor Unassigned, Section Attending Clinician Unavailable Bill COLES Attending Clinician Unavailable Bill Rose Attending Clinician CHARITY MCALLISTER Attending Clinician Unavailable Charity Mcallister MD Attending Clinician GADIEL KOEHLER Attending Clinician Unavailable Mike Lund Attending Clinician Unavailable NIKOLAI REEVES Attending Clinician Unavailable Eliseo Arce MD Attending Clinician Carol Ann ACETYLENE OPERATOR, Sarai Lieberman Attending Clinician [phone] Ashly Pelletier MA Attending Clinician Unavailable Dagoberto Bass MD Attending Clinician [place] Evangelista Attending Clinician Lab, [facility] Pob I Attending Clinician Unavailable Monica Rodas MA Attending Clinician Unavailable Agustina Ortiz MA Attending Clinician Unavailable Rody Maguire RN Attending Clinician Unavailable Kirit Flood MD, V. Attending Clinician HEMATPOLIZ, BEVERLY Attending Clinician Unavailable Gloria Hinojosa Attending Clinician Michael Hagen RN Attending Clinician Unavailable Vani, [facility] Attending Clinician UnavailDO PORSHA Newell Attending Clinician Unavailable Gadiel Koehler MD Attending Clinician Eveline Hansen MD Attending Clinician Eladio [place] RN Attending Clinician Unavailable Leyda Willis Attending Clinician [phone] Stefanie Montalvo RN Attending Clinician Unavailable TOMY MARIE Admitting Clinician Unavailable Tomy Marie MD Admitting Clinician Bill COLES Admitting Clinician Unavailable Lele Rahman Admitting Clinician Unavailable Mike Lund Admitting Clinician Unavailable ELISEO ARCE Admitting Clinician Unavailable DO PORSHA STREETER Admitting Clinician Unavailable Payers Payer Name Policy Type Policy Number Effective Date Expiration Date S gabino [facility] [id number] 2012 STAR PLUS OON 00:00:00 [facility] [id number] 2019 DUAL COMPLETE HMO 00:00:00 [facility] [id number] 2019 PLUS 00:00:00 MEDICAID [facility] [id number] 2020 00:00:00 [facility] [id number] 2019 [facility] 00:00:00 [employer] MEDICARE ADV [id number] 2019 2019 00:00:00 00:00:00 Problems Condition Condition Condition Status Onset Resolution Last Treating Co mments Source Name Details Category Date Date Treatment Clinician Date Dyspnea, Dyspnea, Disease Active Unive rs unspecifie unspecifie 02-11 it y of d type d type 00:00: [address] Gastropare Gastropare Disease Active Overview : Methodi sis sis 4-[address] 00:00: [facility] 00 note l might be different from the original. Added automatic ally from request for surgery [id number] Dysphagia Dysphagia Disease Active Overview: Methodi 4-[address] 00:00: g [facility] this [facility] 00 note l might be different from the original. 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 2020-10-15 Memoria PVI PVI 08-19 17:07:00 l ABLATION ABLATION 00:00: Patel n W/ CARTO / W/ CARTO / 00 GA / T GA / T Active 08/19/2020 [facility] Food Food Disease Active 2019-05 Methodi intoleranc [...] [facility] hoxazole 1-25 Clear 00:00: Garcia 00 [facility] trimetho DA Active [facility] prim 1-25 Clear 00:00: Garcia 00 [facility] codeine DA Active SV N/V [facility] 1-25 Clear 00:00: Garcia 00 [facility] Metoclop Propensi Active [place] ramide [...] Date Stop Date Source Natural father Diabetes [facility] Natural father Other - see comments [facility] Natural [facility] Natural father Hypertension [facility] Natural father [facility] Natural mother Yazdanism [facility] Social History Social Habit Start Date Stop Date Quantity Comments Source History SDOH Yazdanism Alcohol Frequency Hospita l History SDOH Yazdanism Alcohol Std Drinks Hospit al History SDTX Yazdanism [facility] Tobacco use and 2022-02-11 2022-02-11 Former smokeless Uni versity of exposure 00:00:00 00:00:[address] [facility] [place] Tobacco Comment 2022-02-11 2022-02-11 Smokes approx 1-2 Un iversity of 00:00:00 00:00:00 cigarettes per [place] [facility] porfirio day when she Branch smokes Exposure to 2022-01-31 2022-02-10 Not sure [facility]-CoV-2 (event) 00:00:00 22:53:00 [facility] Alcohol intake 2020-12-08 2020-12-08 Current drinker Metho dist 00:00:00 00:00:00 of [facility] (finding) Cigarettes smoked 2020-09-05 2020-09-[address] current (pack per 00:00[facility]00 [facility] - Reported Cigarette 2020-09-05 2020-09-05 Yazdanism pack-years 00:00:00 00:00:00 Hospital Alcohol Comment 2016-09-23 2016-09-23 rare Yazdanism 00:00:00 00:00:00 Hospital History of tobacco 2011-09-29 User of smokeless University of use 00:00:00 tobacco [facility] Sex Assigned At [birth year] [facility] 00:00:00 00:00:00 Smoking Status Start Date Stop Date Source Ex-smoker 2022-02-11 00:00:00 2022-02-11 00:00:00 [facility] Medications Ordered Filled Start Stop Current Ordering Indication Dosage Frequency Signature Comments Components Source Medication Medication Date Date Medication? Clinician (SIG) Name Name zoster 2021-05- Yes [id number] .5mL 0.5 mL by Univers vaccine, 0-14 10-15 9104 Intramuscu ity of recombinant 00:00: 04:59 lar route [place] (SHINGRIX, 00 :00 once now Medic al PF,) for 1 Branch injection dose. And repeat in 2-6 months hydralAZINE Yes 25mg Take 25 mg Univers (APRESOLINE 9- by mouth ity of ) 25 mg 19:28: daily. [place] tablet [address] [place] [address] lisinopril Yes 40mg Take 40 mg U [...] o f 1 mg tablet 19:28: at [place] [address] bedtime. Medical Branch traZODone 2-0 Yes 50mg Take 50 mg Un matt 100 mg 9-27 by mouth ity of tablet 19:28: at [place] [address] bedtime. Medical Branch hydralAZINE 2021-0 Yes 25mg [...] 100 mg 04 (two) Medical tablet times [place] daily. amLODIPine 2-0 Yes 10mg Take 10 mg U nivers (NORVASC) 9-27 by mouth ity of 10 mg 19:28: daily. [place] tablet 04 Medical Branch clonazePAM 2021-0 Yes 1mg Take 1 mg Un matt (KLONOPIN) 9-27 by mouth ity o f 1 mg tablet 19:28: at [place] [address] bedtime. Medical Branch traZODone 2-0 Yes 50mg Take 50 mg Un matt 100 mg 9-27 by mouth ity of tablet 19:28: at [place] [address] bedtime. Medical Branch hydralAZINE 2-0 Yes 25mg [...] o f 1 mg tablet 19:28: at [place] [address] bedtime. Medical Branch traZODone 2021-0 Yes 50mg Take 50 mg Un matt 100 mg 9-27 by mouth ity of tablet 19:28: at [place] [address] bedtime. Medical Branch hydralAZINE 2021-0 Yes 25mg [...] o f 1 mg tablet 19:28: at [place] [address] bedtime. Medical Branch traZODone 2-0 Yes 50mg Take 50 mg Un matt 100 mg 9-27 by mouth ity of tablet 19:28: at [place] [address] bedtime. Medical Branch hydralAZINE 2-0 Yes 25mg [...] o f 1 mg tablet 19:28: at [place] [address] bedtime. Medical Branch traZODone 2021-0 Yes 50mg Take 50 mg Un matt 100 mg 9-27 by mouth ity of tablet 19:28: at [place] [address] bedtime. Medical Branch hydralAZINE 2021-0 Yes 25mg [...] o f 1 mg tablet 19:28: at [place] [address] bedtime. Medical Branch traZODone 2-0 Yes 50mg Take 50 mg Un matt 100 mg 02-16 by mouth ity of tablet 19:28: at [place] 04 bedtime. Medical Branch cefpodoxime 2021- Yes [id number] 200mg Take 1 Univers 200 mg 02-16 tablet by ity of tablet 00:00: 04:59 mouth in [place] 00 :00 the Medical morning Branch and 1 tablet in the evening. Do all this for 3 days. cefpodoxime 0 2021- Yes [id number] 200mg Take 1 Univers 200 mg 02-16 [...] 00 :00 dose, On Medi porfirio mg [facility] 02/15/22 at 0400, Routine hydroCHLORO 0 Yes 25mg 25 mg, Univ ers thiazide 9-25 Oral, ity of (ESIDRIX) 14:00: DAILY, [place] capsule 25 00 First dose Med ical mg on [place] 02/14/22 at 0900, Until Discontinu ed, Routine butalbital- Yes 1{tbl} 1 tablet, [facility] acetaminoph 24 Oral, ity of en-caff 18:46: Q6HPRN, [place] (ESGIC) 06 Starting Medical 50-325-40 on Sat Branch mg tablet 1 02/13/22 at tablet 1346, Until Discontinu ed, Routine, headaches dicyclomine Yes 10mg 10 mg, Univ ers (BENTYL) 9-24 Oral, QID, ity o f capsule 10 17:00: First dose [place] mg 00 on [facility] Medical 02/13/22 at Branch 1200, Until [...] AT 1700, Medical First dose Branch on [facility] 02/11/22 at 1700, Until Discontinu ed, Routine aspirin 2021- No 325mg 325 mg, Unive rs E.C. 02-11 Oral, ity of (ECOTRIN) 21:33: 21:44 ONCE, 1 [place] tablet 325 00 :00 dose, On Medic al mg [facility] 02/11/22 at 1645, Routine nitroglycer Yes .4mg 0.4 mg, Uni vers in 02-11 Sublingual ity of (NITROSTAT) 21:31: , Q5MIN [place] sublingual 20 PRN, Medical tablet 0.4 Starting Branc h mg on [facility] 02/11/22 at 1631, Until Discontinu ed, [...] of (MYCOLOG) 19:00: dose on [place] cream [facility] 02/11/22 at Branch 1400, Until Discontinu [...] First dose [place] mg 00 on [facility] Medical 02/11/22 at Branch 1300, Until Discontinu ed, JOE metoprolol 2021-0 Yes 100mg 100 mg, Uni vers tartrate 02-11 Oral, BID, ity o f (LOPRESSOR) 18:00: First dose [place] tablet 100 00 on [facility] Medical mg 02/11/22 at Branch 1300, Until Discontinu ed, Routine lisinopriL 0 Yes 40mg 40 mg, Unive rs (PRINIVIL,Z 02-11 Oral, BID, it y of ESTRIL) 18:00: First dose [place] tablet 40 00 on [facility] Medical mg 02/11/22 at Branch 1300, Until Discontinu ed, Routine emtricitabi 0 Yes 1{tbl} 1 tablet, [facility] 02-11 Oral, ity of r alafen 18:00: DAILY, [place] (DESCOVY) 00 First dose Medi porfirio tablet [address] [facility] tablet 02/11/22 at 1300, Until Discontinu ed, Routine ipratropium 0 Yes .5mg 0.5 mg, Uni vers (ATROVENT) 02-11 Inhalation ity of 0.02 % 17:57: , QIDPRN, [place] nebulizer 10 Starting Medica l solution on [facility] 0.5 mg 02/11/22 at 1257, Until Discontinu ed, Routine, Wheezing, Shortness of Breath amLODIPine 0 Yes 10mg 10 mg, Unive rs (NORVASC) 02-11 Oral, ity of tablet 10 17:30: DAILY, [place] mg 00 First dose Medical (after Branch last modificati on) on [facility] 02/11/22 at 1230, Until Discontinu ed, Routine hydrALAZINE 2021- No 25mg 25 mg, Uni vers (APRESOLINE 02-11 Oral, ity of ) tablet 25 17:30: 12:54 DAILY, [place] mg 00 :55 First dose Medical (after Branch last modificati on) on [facility] 02/11/22 at 1230, Until Discontinu ed, [...] Oral, ity of (TYLENOL 14:06: 17:37 Q6HPN, [place] #3) 300-30 19 :24 Starting Medic al mg tablet 1 on [place] Branch tablet 02/11/22 at 0906, Until Tue02/12/22 at 1237, Routine, Pain (scale 4-6) sennosides- 0 Yes 1{tbl} 1 tablet, Univers docusate 02-11 Oral, ity of sodium 14:06: QDAILYPRNHooker, [place] (SENOKOT-S) 09 Starting Medi porfirio 8.6-50 mg on [facility] Branch per tablet 02/11/22 at 1 tablet 0906, Until Discontinu ed, Routine, Constipati on ondansetron 0 Yes 4mg 4 mg, Slow Univers (ZOFRAN 02-11 IV Push, ity of (PF)) 14:05: Q6HPRNHooker, [place] injection 4 59 Starting Medi porfirio mg on [place] Branch 02/11/22 at 0905, Until Discontinu ed, Routine, Nausea and Vomiting (N/V) acetaminoph 2021-0 Yes 650mg 650 mg, Un matt en 02-11 Oral, ity of (TYLENOL) 14:04: Q6HPRNHooker, [place] tablet 650 37 Starting Medic al [...] ity of ) 25 mg 09:10: daily. [facility] [address] [facility] Branch amLODIPine 0 Yes 10mg Take 10 mg U nivers (NORVASC) 02-11 by mouth ity of 10 mg 09:10: daily. [facility] [address] [facility] Branch piperacilli 2021- No 3.375g 3.375 [...] of therapy: 72 hours iopamidol 2021- No [id number] 60mL 60 mL, Univers (ISOVUE 02-11 Intravenou [...] Branch 02/11/22 at 0015, JOE emtricitabi Yes [id number] Take one Univers ne-tenofovi 9-12 po daily ity of r alafen 00:00: [place] (DESCOVY) 00 Medical tablet Branch emtricitabi Yes [id number] Take one Univers ne-tenofovi 9-12 po daily ity of r alafen 00:00: [place] (DESCOVY) 00 Medical tablet Branch emtricitabi Yes [id number] Take one Univers ne-tenofovi 9-12 po daily ity of r alafen 00:00: [place] (DESCOVY) 00 Medical tablet Branch emtricitabi Yes [id number] Take one Univers ne-tenofovi 9-12 po daily ity of r alafen 00:00: [place] (DESCOVY) 00 Medical tablet Branch emtricitabi Yes [id number] Take one Univers ne-tenofovi 9-12 po daily ity of r alafen 00:00: [place] (DESCOVY) 00 Medical tablet Branch emtricitabi Yes [id number] Take one Univers ne-tenofovi 9-12 po daily ity of r alafen 00:00: [place] (DESCOVY) 00 Medical tablet Branch emtricitabi Yes [id number] Take one Univers ne-tenofovi 9-12 po daily ity of r alafen 00:00: [place] (DESCOVY) 00 Medical tablet Branch naproxen 2021-0 Yes [id number] 500mg Take 1 U nivers (NAPROSYN) 7-24 tablet by ity of 500 mg 00:00: mouth in [place] tablet 00 the Medical morning Branch and 1 tablet in the evening. Take with meals. methocarbam 2-0 Yes [id number] 500mg Take 1 Univers oL 500 mg 7-24 tablet by ity o f tablet 00:00: mouth 4 [place] 00 (four) Medical times Branch daily. naproxen 2021-0 Yes [id number] 500mg Take 1 U nivers (NAPROSYN) 7-24 tablet by ity of 500 mg 00:00: mouth in [place] tablet 00 the Medical morning Branch and 1 tablet in the evening. Take with meals. methocarbam 2021-0 Yes [id number] 500mg Take 1 Univers oL 500 mg 7-24 tablet by ity o f tablet 00:00: mouth 4 [place] 00 (four) Medical times Branch daily. naproxen 2021-0 Yes [id number] 500mg Take 1 U nivers (NAPROSYN) 7-24 tablet by ity of 500 mg 00:00: mouth in [place] tablet 00 the Medical morning Branch and 1 tablet in the evening. Take with meals. methocarbam 2021-0 Yes [id number] 500mg Take 1 Univers oL 500 mg 7-24 tablet by ity o f tablet 00:00: mouth 4 [place] 00 (four) Medical times Branch daily. esomeprazol 2021- No 40mg Take 40 mg Univers e (NEXIUM) 11-20 by mouth 2 it y of 40 mg 09:12: 00:00 (two) [place] capsule 03 :00 times Medical daily. Branch [...] Medical daily. Branch traZODONE No Take by [facility] ers (DESYREL) 11-20 mouth at ity o f 10 mg/mL 09:10: 00:00 bedtime. [place] oral 28 :00 Medical suspension Branch hydralAZINE Yes 25mg Take 25 mg Univers (APRESOLINE 11-20 by mouth ity of ) 25 mg 08:47: daily. [place] tablet 47 Medical Branch cephALEXin 2021- No [id number] 500mg Take 1 Univers (KEFLEX) 10-24 capsule [...] 7-10). Indication s: acute pain buPROPion Yes [id number] 150mg Take 1 U nivers XL 4-12 tablet by ity of (WELLBUTRIN 00:00: mouth [place] XL) 150 mg 00 daily. Medical 24 hr Branch tablet busPIRone Yes [id number] 30mg Take 1 Un matt 30 mg 4-12 tablet by ity of tablet 00:00: mouth 2 00 (two) Medical times Branch daily. SERTraline Yes [id number] 200mg Take 2 Univers 100 mg 4-12 tablets by ity of tablet 00:00: mouth [place] 00 daily. Medical Branch buPROPion Yes [id number] 150mg Take 1 U nivers XL 4-12 tablet by ity of (WELLBUTRIN 00:00: mouth [place] XL) 150 mg 00 daily. Medical 24 hr Branch tablet busPIRone Yes [id number] 30mg Take 1 Un matt 30 mg 4-12 tablet by ity of tablet 00:00: mouth 2 [place] 00 (two) Medical times Branch daily. SERTraline Yes [id number] 200mg Take 2 Univers 100 mg 4-12 tablets by ity of tablet 00:00: mouth [place] 00 daily. Medical Branch buPROPion 2021-0 Yes [id number] 150mg Take 1 U nivers XL 4-12 tablet by ity of (WELLBUTRIN 00:00: mouth [place] XL) 150 mg 00 daily. Medical 24 hr Branch tablet busPIRone 2021-0 Yes [id number] 30mg Take 1 Un matt 30 mg 4-12 tablet by ity of tablet 00:00: mouth 2 [place] 00 (two) Medical times Branch daily. SERTraline 2021-0 Yes [id number] 200mg Take 2 Univers 100 mg 4-12 tablets by ity of tablet 00:00: mouth [place] 00 daily. Medical Branch buPROPion 2021-0 Yes [id number] 150mg Take 1 U nivers XL 4-12 tablet by ity of (WELLBUTRIN 00:00: mouth [place] XL) 150 mg 00 daily. Medical 24 hr Branch tablet busPIRone 2021-0 Yes [id number] 30mg Take 1 Un matt 30 mg 4-12 tablet by ity of tablet 00:00: mouth 2 [place] 00 (two) Medical times Branch daily. SERTraline 2021-0 Yes [id number] 200mg Take 2 Univers 100 mg 4-12 tablets by ity of tablet 00:00: mouth [place] 00 daily. Medical Branch buPROPion 2021-0 Yes [id number] 150mg Take 1 U nivers XL 4-12 tablet by ity of (WELLBUTRIN 00:00: mouth [place] XL) 150 mg 00 daily. Medical 24 hr Branch tablet busPIRone 2021-0 Yes [id number] 30mg Take 1 Un matt 30 mg 4-12 tablet by ity of tablet 00:00: mouth 2 [place] 00 (two) Medical times Branch daily. SERTraline 2021-0 Yes [id number] 200mg Take 2 Univers 100 mg 4-12 tablets by ity of tablet 00:00: mouth [place] 00 daily. Medical Branch buPROPion 2021-0 Yes [id number] 150mg Take 1 U nivers XL 4-12 tablet by ity of (WELLBUTRIN 00:00: mouth [place] XL) 150 mg 00 daily. Medical 24 hr Branch tablet busPIRone 2021-0 Yes [id number] 30mg Take 1 Un matt 30 mg 4-12 tablet by ity of tablet 00:00: mouth 2 [place] 00 (two) Medical times Branch daily. SERTraline 2021-0 Yes [id number] 200mg Take 2 Univers 100 mg 4-12 tablets by ity of tablet 00:00: mouth [place] 00 daily. Medical Branch buPROPion 2021-0 Yes [id number] 150mg Take 1 U nivers XL 4-12 tablet by ity of (WELLBUTRIN 00:00: mouth [place] XL) 150 mg 00 daily. Medical 24 hr Branch tablet busPIRone 2021-0 Yes [id number] 30mg Take 1 Un matt 30 mg 4-12 tablet by ity of tablet 00:00: mouth 2 [place] 00 (two) Medical times Branch daily. SERTraline 2021-0 Yes [id number] 200mg Take 2 Univers 100 mg 4-12 tablets by ity of tablet 00:00: mouth [place] 00 daily. Medical Branch buPROPion 2021-0 Yes [id number] 150mg Take 1 U nivers XL 4-12 tablet by ity of (WELLBUTRIN 00:00: mouth [place] XL) 150 mg 00 daily. Medical 24 hr Branch tablet busPIRone 2021-0 Yes [id number] 30mg Take 1 Un matt 30 mg 4-12 tablet by ity of tablet 00:00: mouth 2 [place] 00 (two) Medical times Branch daily. SERTraline 2021-0 Yes [id number] 200mg Take 2 Univers 100 mg 4-12 tablets by ity of tablet 00:00: mouth [place] 00 daily. Medical Branch raltegravir 2021-0 Yes [id number] 400mg Take 1 Univers (ISENTRESS) 3-28 tablet by ity of 400 mg 00:00: mouth 2 [place] tablet 00 (two) Medical times Branch daily. raltegravir 2-0 Yes [id number] 400mg Take 1 Univers (ISENTRESS) 3-28 tablet by ity of 400 mg 00:00: mouth 2 [place] tablet 00 (two) Medical times Branch daily. raltegravir 2022-0 Yes [id number] 400mg Take 1 Univers (ISENTRESS) 3-28 tablet by ity of 400 mg 00:00: mouth 2 [place] tablet 00 (two) Medical times Branch daily. raltegravir 2022-0 Yes [id number] 400mg Take 1 Univers (ISENTRESS) 3-28 tablet by ity of 400 mg 00:00: mouth 2 [place] tablet 00 (two) Medical times Branch daily. raltegravir 2021-0 Yes [id number] 400mg Take 1 Univers (ISENTRESS) 3-28 tablet by ity of 400 mg 00:00: mouth 2 [place] tablet 00 (two) Medical times Branch daily. raltegravir 2021-0 Yes [id number] 400mg Take 1 Univers (ISENTRESS) 3-28 tablet by ity of 400 mg 00:00: mouth 2 [place] tablet 00 (two) Medical times Branch daily. raltegravir 2021-0 Yes [id number] 400mg Take 1 Univers (ISENTRESS) 3-28 tablet by ity of 400 mg 00:00: mouth 2 [place] tablet 00 (two) Medical times Branch daily. raltegravir 2021-0 Yes [id number] 400mg Take 1 Univers (ISENTRESS) 3-28 tablet by ity of 400 mg 00:00: mouth 2 [place] tablet 00 (two) Medical times Branch daily. LORazepam 1 2021- No [id number] 1mg Take 1 Univers mg tablet 3-21 [...] times a tablet day. emtricitabi 2021- No [id number] Take one Univers ne-tenofovi 1-20 09-12 po daily ity of r alafen 00:00: 00:00 [place] (DESCOVY) 00 :00 Medical tablet Branch metoprolol 0 Yes [id number] Take 1 [place] tartrate 7-26 tablet Health (Lopressor) 00:00: (100 mg 100 MG 00 total) by tablet mouth 2 (two) times a day AND 0.5 tablets (50 mg total) every night. metoprolol 0 Yes [id number] Take 1 [place] tartrate 7-26 tablet Health [...] area in groin) hydrALAZINE 2020-0 Yes 50mg Q.[id number] Take 50 mg Methodi (APRESOLINE 7-19 [id number] mouth [address] ) 50 MG [...] area in groin) hydrALAZINE 0 Yes 50mg Q.[id number] Take 50 mg Methodi (APRESOLINE 7-19 [id number] mouth 3 [facility] ) 50 MG [...] (affected area in groin) hydrALAZINE Yes 50mg Q.[id number] Take 50 mg Methodi (APRESOLINE 7-19 [id number] [address] mouth 3 st ) 50 MG [...] area in groin) hydrALAZINE 2020-0 Yes 50mg Q.[id number] Take 50 mg Methodi (APRESOLINE 7-19 [id number] [address] mouth 3 [address] ) 50 MG [...] area in groin) hydrALAZINE 0 Yes 50mg Q.[id number] Take 50 mg Methodi (APRESOLINE 7-19 [id number] mouth 3 st ) 50 MG [...] (affected area in groin) hydrALAZINE Yes 50mg Q.[id number] Take 50 mg Methodi (APRESOLINE 7-19 [id number] [address] mouth 3 st ) 50 MG [...] area in groin) hydrALAZINE 0 Yes 50mg Q.[id number] Take 50 mg Methodi (APRESOLINE 7-19 [id number] [address] mouth 3 st ) 50 MG [...] area in groin) hydrALAZINE 0 Yes 50mg Q.[id number] Take 50 mg Methodi (APRESOLINE 7-[id number] [address] mouth 3 [address] ) 50 MG [...] (affected area in groin) hydrALAZINE Yes 50mg Q.[id number] Take 50 mg Methodi (APRESOLINE 7-19 [id number] by mouth 3 st ) 50 MG [...] area in groin) hydrALAZINE 0 Yes 50mg Q.[id number] Take 50 mg Methodi (APRESOLINE 7-19 [id number] by mouth 3 st ) 50 MG [...] area in groin) hydrALAZINE 0 Yes 50mg Q.[id number] Take 50 mg Methodi (APRESOLINE 7-19 [id number] by mouth 3 st ) 50 MG [...] area in groin) hydrALAZINE 0 Yes 50mg Q.[id number] Take 50 mg Methodi (APRESOLINE 7-19 [id number] by mouth 3 st ) 50 MG [...] (affected area in groin) hydrALAZINE Yes 50mg Q.[id number] Take 50 mg Methodi (APRESOLINE 7-19 [id number] by mouth 3 st ) 50 MG [...] area in groin) hydrALAZINE 0 Yes 50mg Q.[id number] Take 50 mg Methodi (APRESOLINE 7-19 [id number] by mouth 3 st ) 50 MG [...] area in groin) hydrALAZINE 0 Yes 50mg Q.[id number] Take 50 mg Methodi (APRESOLINE 7-19 [id number] by mouth 3 st ) 50 MG [...] (affected area in groin) hydrALAZINE Yes 50mg Q.[id number] Take 50 mg Methodi (APRESOLINE 7-19 [id number] by mouth 3 st ) 50 MG [...] area in groin) hydrALAZINE 0 Yes 50mg Q.[id number] Take 50 mg Methodi (APRESOLINE 7-19 [id number] [address] mouth [address] ) 50 MG [...] tablet 25 daily. l nystatin-tr 0 Yes [id number] Apply to [facility] iainolone 7-06 area(s) 3 ity of cream 00:00: (three) [place] 00 times Medical daily. Branch nystatin-tr 2021-0 Yes [id number] Apply to [facility] iamcinolone 7-06 area(s) 3 ity of cream 00:00: (three) [place] 00 times Medical daily. Branch nystatin-tr 2021-0 Yes [id number] Apply to [facility] iamcinolone 7-06 area(s) 3 ity of cream 00:00: (three) [place] 00 times Medical daily. Branch nystatin-tr 2021-0 Yes [id number] Apply to Univers iamcinolone 7-06 area(s) 3 ity of cream 00:00: (three) [place] 00 times Medical daily. Branch nystatin-tr 2021-0 Yes [id number] Apply to [facility] iamcinolone 7-06 area(s) 3 ity of cream 00:00: (three) [place] 00 times Medical daily. Branch nystatin-tr 2021-0 Yes [id number] Apply to [facility] iamcinolone 7-06 area(s) 3 ity of cream 00:00: (three) [place] 00 times Medical daily. Branch nystatin-tr 0 Yes [id number] Apply to [facility] 11-25 area(s) 3 ity of cream 00:00: (three) [place] 00 times Medical daily. Branch nystatin-tr 0 Yes [id number] Apply to [facility] 7 area(s) 3 ity of cream 00:00: (three) [place] 00 times Medical daily. Branch budesonide- 2020-0 2021- No 1{puff} QD Inhale 1 Methodi formoteroL 625 06-[address] (SYMBICORT) 14:37: 00:00 morning. H ospita 160-4.5 02 :00 l mcg/actuati on inhaler hydrALAZINE 0 Yes [id number] 50mg [id number] Take 1 [place] (Apresoline 6-11 [id number] tablet (50 Health ) 50 MG 00:00: 3D mg total) tablet 00 by mouth 3 (three) times a day. hydrALAZINE Yes [id number] 50mg Q.[id number] Take 1 [place] (Apresoline 6-11 [id number] tablet (50 Health ) 50 MG 00:00: [...] % 00:00: ointment 00 nystatin 2020- No [id number] Q.25D Take 5 mL Methodi (MYCOSTATIN 10-06 [...] l 14:00: Norvasc) emtricitabi No Notes: Caesar lsia ne 200 [...] ia 4-10 (Same as: l 14:00: Zoloft) [place] pantoprazol No Notes: Caesar lisa e 4-10 Tablet l 14:00: should not [place] 00 be chewed or crushed. (Same as: Protonix) Amiodarone No Notes: Memor ia 4-10 (Same as: l 14:00: Cordarone) [place] 00 Amlodipine No Notes: Memor ia 4-10 (Same as: l 14:00: Norvasc) [place] emtricitabi No Notes: Caesar lisa ne 200 [...] ia 4-10 (Same as: l 14:00: Cordarone) [place] Amlodipine No Notes: Memor ia 4-10 (Same [...] e 4-10 Tablet l 14:00: should not [place] 00 be chewed or crushed. (Same as: Protonix) Amiodarone No Notes: Memor ia 4-10 (Same as: l 14:00: Cordarone) [place] 00 Amlodipine No Notes: Memor ia 4-10 (Same as: l 14:00: Norvasc) [place] 00 emtricitabi No Notes: Caesar lisa ne [...] ia 4-10 (Same as: l 14:00: Norvasc) [place] 00 emtricitabi No Notes: Caesar lisa ne 200 MG / 4-10 (Same as: l tenofovir 14:00: Descovy) Herm ariel alafenamide 00 Non-formul 25 MG Oral nancy Tablet [Descovy] Sertraline No Notes: Memor ia 4-10 (Same as: l 14:00: Zoloft) [place] 00 pantoprazol No Notes: Caesar lisa e [...] 0.9% 4-10 (Same as: l 02:00: BD [place] Posiflush) Eliquis No Notes: Memoria 4-10 Same as: l 02:00: Eliquis [place] 00 Hydralazine No Notes: Caesar lisa Hydrochlori 4-10 (Same as: l de 50 MG 02:00: Apresoline Her mitchell Oral Tablet 00 ) May interfere w/enteral feedings Take With Food Sucralfate No Notes: September M emoria 4-10 interfere l 02:00: w/enteral [place] 00 feeds - Take 1 hr before or 2 hr after antacids, dairy pdt, meals & minerals - On empty stomach. For patients unable to swallow tablet, dissolve in 10mL - 30mL of water or juice and stir before giving. (Same As: Carafate) Saline No Notes: Memoria Flush 0.9% 4-10 (Same as: l 02:00: BD [place] Posiflush) Eliquis No Notes: Memoria 4-10 Same as: l 02:00: Eliquis [place] 00 Hydralazine No Notes: Caesar lisa Hydrochlori 4-10 (Same as: l de 50 MG 02:00: Apresoline Her mitchell Oral Tablet 00 ) May interfere w/enteral feedings Take With Food Sucralfate No Notes: May M emoria 4-10 interfere l 02:00: w/enteral [place] 00 feeds - Take 1 hr before or 2 hr after antacids, dairy pdt, meals & minerals - On empty stomach. For patients unable to swallow tablet, dissolve in 10mL - 30mL of water or juice and stir before giving. (Same As: Carafate) Saline No Notes: Memoria Flush 0.9% 4-10 (Same as: l 02:00: BD [place] 00 Posiflush) Eliquis No Notes: Memoria 4-10 Same as: l 02:00: Eliquis [place] Hydralazine No Notes: Caesar lisa Hydrochlori 4-10 [...] M emoria 4-10 interfere l 02:00: w/enteral [place] 00 feeds - Take 1 hr before [...] Memoria 4-10 Same as: l 02:00: Eliquis [place] Hydralazine No Notes: Caesar lisa Hydrochlori 4-10 [...] 0.9% 4-10 (Same as: l 02:00: BD [place] Posiflush) Eliquis No Notes: Memoria 4-10 Same as: l 02:00: Eliquis [place] 00 Hydralazine No Notes: Caesar lisa Hydrochlori 4-10 (Same as: l de 50 MG 02:00: Apresoline Her mitchell Oral Tablet 00 ) May interfere w/enteral feedings Take With Food Sucralfate No Notes: May M emoria 4-10 interfere l 02:00: w/enteral [place] 00 feeds - Take 1 hr before or 2 hr after antacids, dairy pdt, meals & minerals - On empty stomach. For patients unable to swallow tablet, dissolve in 10mL - 30mL of water or juice and stir before giving. (Same As: Carafate) Saline No Notes: Memoria Flush 0.9% 4-10 (Same as: l 02:00: BD [place] 00 Posiflush) Eliquis No Notes: Memoria 4-10 [...] not exceed l #3 00:12: 4gm/day of [place] 00 acetaminop hen. (Same as: Tylenol with [...] tartrate 4-09 tab, l 22:00: Route: PO, [place] 00 Drug form: TAB, BID, Dosing Weight [...] 1-0 No 40 mg, 1 Mem oria - tab, l 22:00: Route: PO, [place] 00 Drug form: TAB, BID, Dosing Weight 97.273, kg, Start date: 08/29/20 17:00:00 CDT, Duration: 30 day, Stop date: 09/28/20 9:00:00 CDT metoprolol 2020-0 No 100 mg, 1 Me moria tartrate - tab, l 22:00: Route: PO, [place] 00 Drug form: TAB, BID, Dosing Weight [...] tartrate 4-09 tab, l 22:00: Route: PO, [place] 00 Drug form: TAB, BID, Dosing Weight [...] Stop date: 09/28/20 9:00:00 CDT, 0 Buspirone 202-0 No Notes: Memori a 08-29 (Same As: l 22:00: BuSpar) Lisinopril 2020-0 No 40 mg, 1 Mem oria 4-09 tab, l 22:00: Route: PO, [place] Drug form: TAB, BID, Dosing Weight 97.273, kg, Start date: 08/29/20 17:00:00 CDT, Duration: 30 day, Stop date: 09/28/20 9:00:00 CDT metoprolol 2021-0 No 100 mg, 1 Me moria tartrate 4-09 tab, l 22:00: Route: PO, [place] 00 Drug form: TAB, BID, Dosing Weight [...] oria -09 tab, l 22:00: Route: PO, [place] 00 Drug form: TAB, BID, Dosing Weight [...] tartrate 4-09 tab, l 22:00: Route: PO, [place] Drug form: TAB, BID, Dosing Weight 97.273, [...] Notes: Memoria 4- (Same l 17:07: as:MORPhin [place] 00 e Sulfate) Morphine No Notes: Memoria 4- (Same l 17:07: as:MORPhin [place] 00 e Sulfate) Morphine No Notes: Memoria 4- (Same l 17:07: as:MORPhin [place] 00 e Sulfate) Morphine No Notes: Memoria 4- (Same l 17:07: as:MORPhin [place] 00 e Sulfate) Morphine No Notes: Memoria 4- (Same l 17:07: as:MORPhin [place] 00 e Sulfate) Morphine No Notes: Memoria 4- (Same l 17:07: as:MORPhin [place] 00 e Sulfate) buPROPion No 150 mg, [...] 30 tab, 0 coated Refill(s), tablet Pharmacy: [facility], 162.56, cm, 08/29/20 5:30:00 CDT, Height, 97.273, kg, 08/29/20 5:30:00 CDT, Weight pantoprazol Yes 40 mg = 1 M emoria e 40 mg 4-09 tab, PO, l oral 15:27: Daily, # [place] enteric 00 30 tab, 0 coated Refill(s), tablet Pharmacy: [facility] 149, 162.56, cm, 08/29/20 5:30:00 CDT, Height, 97.273, kg, 08/29/20 5:30:00 CDT, Weight pantoprazol 2020-0 Yes 40 mg = 1 M emoria e 40 mg 4-09 tab, PO, l oral 15:27: Daily, # [place] enteric 00 30 tab, 0 coated Refill(s), tablet Pharmacy: [facility], 162.56, cm, 08/29/20 5:30:00 CDT, Height, 97.273, kg, 08/29/20 5:30:00 CDT, Weight pantoprazol 2020-0 Yes 40 mg = 1 M emoria e 40 mg 4-09 tab, PO, l oral 15:27: Daily, # [place] enteric 00 30 tab, 0 coated Refill(s), tablet Pharmacy: [facility], 162.56, cm, 08/29/20 5:30:00 CDT, Height, 97.273, kg, 08/29/20 5:30:00 CDT, Weight pantoprazol 2020-0 Yes 40 mg = 1 M emoria e 40 mg 4-09 tab, PO, l oral 15:27: Daily, # [place] enteric 00 30 tab, 0 coated Refill(s), tablet Pharmacy: [facility] 149, 162.56, cm, 08/29/20 5:30:00 CDT, Height, 97.273, kg, 08/29/20 5:30:00 CDT, Weight pantoprazol 2020-0 Yes 40 mg = 1 M emoria e 40 mg 4-09 tab, PO, l oral 15:27: Daily, # [place] enteric 00 30 tab, 0 coated Refill(s), tablet Pharmacy: [facility], 162.56, cm, 08/29/20 5:30:00 CDT, Height, 97.273, kg, 08/29/20 5:30:00 CDT, Weight pantoprazol 2020-0 Yes 40 mg = 1 M emoria e 40 mg 4-09 tab, PO, l oral 15:27: Daily, # [place] enteric 00 30 tab, 0 coated Refill(s), tablet Pharmacy: [facility] 149, 162.56, cm, 08/29/20 5:30:00 CDT, Height, 97.273, kg, 08/29/20 5:30:00 CDT, Weight pantoprazol 1-0 No 40 mg = 1 M emoria e 40 mg 4-09 tab, PO, l oral 15:26: Daily, # [place] enteric 00 30 tab, 0 coated Refill(s) tablet sucralfate 2020-0 Yes 1 gm = 1 Mem oria 1 g oral 4-09 tab, PO, l tablet 15:26: Q12H, # 28 Skylar nn 00 tab, 0 Refill(s), Pharmacy: [facility], 162.56, cm, 08/29/20 5:30:00 CDT, Height, 97.273, kg, 08/29/20 5:30:00 CDT, Weight pantoprazol 2020-0 No 40 mg = 1 M emoria e 40 mg 4-09 tab, PO, l oral 15:26: Daily, # [place] enteric 00 30 tab, 0 coated Refill(s) tablet sucralfate 2020-0 Yes 1 gm = 1 Mem oria 1 g oral 4-09 tab, PO, l tablet 15:26: Q12H, # 28 Skylar nn 00 tab, 0 Refill(s), Pharmacy: [place] [address], 162.56, cm, 08/29/20 5:30:00 CDT, Height, 97.273, kg, 08/29/20 5:30:00 CDT, Weight pantoprazol 2020-0 No 40 mg = 1 M emoria e 40 mg 4-09 tab, PO, l oral 15:26: Daily, # [place] enteric 00 30 tab, 0 coated Refill(s) tablet sucralfate 2020-0 Yes 1 gm = 1 Mem oria 1 g oral 4-09 tab, PO, l tablet 15:26: Q12H, # 28 Skylar nn 00 tab, 0 Refill(s), Pharmacy: [place] [address], 162.56, cm, 08/29/20 5:30:00 CDT, Height, 97.273, kg, 08/29/20 5:30:00 CDT, Weight pantoprazol 2020-0 No 40 mg = 1 M emoria e 40 mg 4-09 tab, PO, l oral 15:26: Daily, # [place] enteric 00 30 tab, 0 coated Refill(s) tablet sucralfate 2020-0 Yes 1 gm = 1 Mem oria 1 g oral 4-09 tab, PO, l tablet 15:26: Q12H, # 28 Skylar nn 00 tab, 0 Refill(s), Pharmacy: [facility] 149, 162.56, cm, 08/29/20 5:30:00 [...] Skylar nn 00 tab, 0 Refill(s), Pharmacy: [place] [address], 162.56, cm, 08/29/20 5:30:00 CDT, Height, 97.273, [...] Skylar nn 00 tab, 0 Refill(s), Pharmacy: [place] [address], 162.56, cm, 08/29/20 5:30:00 CDT, Height, 97.273, [...] Skylar nn 00 tab, 0 Refill(s), Pharmacy: [facility], 162.56, cm, 08/29/20 5:30:00 [...] 0.9% 4-09 (Same as: l 15:25: BD [place] 00 Posiflush) Saline No Notes: Memoria Flush 0.9% 4-09 (Same as: l 15:25: BD [place] 00 Posiflush) Lorazepam No Notes: Memori a 4-09 (Same as: l 15:25: Ativan) Lorazepam No Notes: Memori a 4-09 (Same as: l 15:25: Ativan) Saline No Notes: Memoria Flush 0.9% 4-09 (Same as: l 15:25: BD [place] 00 Posiflush) Lorazepam No Notes: Memori a [...] Drug form: l mg + 15:00: INJ, [place] Dosing Weight 97.3, kg, Start date: 08/29/20 10:00:00 CDT, Stop date: 08/29/20 11:00:00 CDT Isuprel HCl 2020-0 No Route: IV, Memoria (ANES) 0.2 08-29 Drug form: l mg + 15:00: INJ, [place] Dosing Weight 97.3, kg, Start date: 08/29/20 10:00:00 CDT, Stop date: 08/29/20 11:00:00 CDT Isuprel HCl 2020-0 No Route: IV, Memoria (ANES) 0.2 08-29 Drug form: l mg + 15:00: INJ, [place] Dosing Weight 97.3, kg, Start date: 08/29/20 [...] [place] 00 Stop date: 08/29/20 9:18:00 CDT Naloxone [...] 08-29 Route: PO, l 14:01: Drug form: [place] 00 TAB, ONCE, Dosing Weight 97.273, kg, [...] ia 08-29 Route: l 14:01: IVP, ONCE, [place] Dosing Weight 97.273, kg, PRN Nausea & Vomiting, Start date: 08/29/20 9:01:00 CDT Labetalol 1-0 No 10 mg, Memori a 08-29 Route: l 14:01: IVP, [place] 00 Q5Min, Dosing Weight 97.273, kg, PRN [...] Memori a 08-29 Route: l 14:01: IVP, [place] 00 Q2MIN, Dosing Weight 97.273, kg, PRN Narcotic Reversal, Start date: 08/29/20 9:01:00 CDT, Duration: 8 doses or times, Stop date: Limited # of times Ondansetron 2020-0 No 4 mg, Memor ia 08-29 Route: l 14:01: IVP, ONCE, [place] 00 Dosing Weight 97.273, kg, PRN Nausea [...] oria ne 08-29 Route: l 14:01: IVP, [place] 00 Q5Min, Dosing Weight 97.273, kg, PRN Pain Score 7-10, Start date: 08/29/20 9:01:00 CDT, Duration: 4 doses or times, Stop date: Limited # of times Flumazenil 2020-0 No 0.2 mg, Caesar lisa 08-29 Route: l 14:01: IVP, PRN, [place] 00 Dosing Weight 97.273, kg, PRN Benzodiaze pine Reversal, Initial dose, Start date: 08/29/20 9:01:00 CDT, Duration: 30 day, Stop date: 09/28/20 9:00:00 CDT Naloxone 1-0 No 0.4 mg, Memori a 08-29 Route: l 14:01: IVP, [place] 00 Q2MIN, Dosing Weight 97.273, kg, PRN [...] Memori a 08-29 Route: l 14:01: IVP, [place] 00 Q5Min, Dosing Weight 97.273, kg, PRN Elevated BP, Start date: 08/29/20 9:01:00 CDT, Duration: 5 doses or times, Stop date: Limited # of times Acetaminoph 1-0 No 1,000 mg, M emoria en 08-29 Route: PO, l 14:01: Drug form: [place] 00 TAB, ONCE, Dosing Weight 97.273, kg, [...] oria ne 08-29 Route: l 14:01: IVP, [place] 00 Q5Min, Dosing Weight 97.273, kg, PRN [...] Memori a 08-29 Route: l 14:01: IVP, [place] 00 Q5Min, Dosing Weight 97.273, kg, PRN [...] oria ne 08-29 Route: l 14:01: IVP, [place] 00 Q5Min, Dosing Weight 97.273, kg, PRN Pain Score 7-10, Start date: 08/29/20 9:01:00 CDT, Duration: 4 doses or times, Stop date: Limited # of times Labetalol 2021-0 No 10 mg, Memori a 08-29 Route: l 14:01: IVP, [place] 00 Q5Min, Dosing Weight 97.273, kg, PRN Elevated BP, Start date: 08/29/20 9:01:00 CDT, Duration: 5 doses or times, Stop date: Limited # of times Acetaminoph 2021-0 No 1,000 mg, M emoria en 08-29 Route: PO, l 14:01: Drug form: [place] 00 TAB, ONCE, Dosing Weight 97.273, kg, [...] oria ne 08-29 Route: l 14:01: IVP, [place] 00 Q5Min, Dosing Weight 97.273, kg, PRN Pain Score 7-10, Start date: 08/29/20 9:01:00 CDT, Duration: 4 doses or times, Stop date: Limited # of times Flumazenil 2021-0 No 0.2 mg, Caesar lisa 08-29 Route: l 14:01: IVP, PRN, [place] 00 Dosing Weight 97.273, kg, PRN Benzodiaze pine Reversal, Initial dose, Start date: 08/29/20 9:01:00 CDT, Duration: 30 day, Stop date: 09/28/20 9:00:00 CDT Naloxone 2021-0 No 0.4 mg, Memori a 08-29 Route: l 14:01: IVP, [place] 00 Q2MIN, Dosing Weight 97.273, kg, PRN Narcotic Reversal, Start date: 08/29/20 9:01:00 CDT, Duration: 8 doses or times, Stop date: Limited # of times Flumazenil 1-0 No 0.2 mg, Caesar lisa 08-29 Route: l 14:01: IVP, PRN, [place] 00 Dosing Weight 97.273, kg, PRN Benzodiaze [...] ia 08-29 Route: l 14:01: IVP, ONCE, [place] 00 Dosing Weight 97.273, kg, PRN Nausea & Vomiting, Start date: 08/29/20 9:01:00 CDT Labetalol 2020-0 No 10 mg, Memori a 08-29 Route: l 14:01: IVP, [place] 00 Q5Min, Dosing Weight 97.273, kg, PRN Elevated BP, Start date: 08/29/20 9:01:00 CDT, Duration: 5 doses or times, Stop date: Limited # of times Acetaminoph 2020-0 No 1,000 mg, M emoria en 08-29 Route: PO, l 14:01: Drug form: [place] 00 TAB, ONCE, Dosing Weight 97.273, kg, [...] oria ne 08-29 Route: l 14:01: IVP, [place] 00 Q5Min, Dosing Weight 97.273, kg, PRN [...] 08-29 Drug form: l 13:52: INJ, ONCE, [place] 00 Stop date: 08/29/20 8:52:00 CDT rocuronium 202-0 [...] 08-29 Drug form: l 13:42: INJ, ONCE, [place] Stop date: 08/29/20 8:42:00 CDT fentaNYL 2020-0 No Route: IV, Mem oria (ANES) 08-29 Drug form: l 13:42: INJ, ONCE, [place] 00 Stop date: 08/29/20 8:42:00 CDT fentaNYL 2020-0 No Route: IV, Mem oria (ANES) 08-29 Drug form: l 13:42: INJ, ONCE, [place] 00 Stop date: 08/29/20 8:42:00 CDT fentaNYL [...] Drug form: l 10 13:15: INJ, Start [place] microgram date: 08/29/20 8:15:00 CDT, Stop date: 08/29/20 9:15:00 CDT norepinephr 2020-0 No Route: IV, Memoria ine (ANES) 08-29 Drug form: l 10 13:15: INJ, Start [place] microgram date: 08/29/20 8:15:00 CDT, Stop date: 08/29/20 9:15:00 CDT norepinephr 2020-0 No Route: IV, Memoria ine (ANES) 08-29 Drug form: l 10 13:15: INJ, Start [place] microgram date: 08/29/20 8:15:00 CDT, Stop date: 08/29/20 9:15:00 CDT norepinephr 2020-0 No Route: IV, Memoria ine (ANES) 4-09 Drug form: l 10 13:15: INJ, Start [place] microgram 00 date: 08/29/20 8:15:00 CDT, Stop date: 08/29/20 9:15:00 CDT norepinephr 2020-0 No Route: IV, Memoria ine (ANES) 4- Drug form: l 10 13:15: INJ, Start [place] microgram 00 date: 08/29/20 8:15:00 CDT, Stop [...] 4-09 Total l 0.9% IV 12:30: Volume: [place] (ANES) 1000 00 1,000, mL Start date: 08/29/20 7:30:00 CDT, Stop date: 08/29/20 8:30:00 CDT Sodium 202-0 No Route: IV, Memor ia Chloride 4-09 Total l 0.9% IV 12:30: Volume: [place] (ANES) 1000 00 1,000, mL Start date: 08/29/20 7:30:00 CDT, Stop date: 08/29/20 8:30:00 CDT Sodium 2021-0 No Route: IV, Memor ia Chloride 4-09 Total l 0.9% IV 12:30: Volume: [place] (ANES) 1000 00 1,000, mL Start date: 08/29/20 7:30:00 CDT, Stop date: 08/29/20 8:30:00 CDT Sodium 2021-0 No Route: IV, Memor ia Chloride 4-09 Total l 0.9% IV 12:30: Volume: [place] (ANES) 1000 00 1,000, mL Start date: 08/29/20 7:30:00 CDT, Stop date: 08/29/20 8:30:00 CDT Sodium 2021-0 No Route: IV, Memor ia Chloride 4-09 Total l 0.9% IV 12:30: Volume: [place] (ANES) 1000 00 1,000, mL Start date: [...] PO, l Hydrochlori 11:42: Q24H, # 30 [place] de 150 MG 00 tab, 0 Extended [...] PO, l Hydrochlori 11:42: Q24H, # 30 [place] de 150 MG 00 tab, 0 Extended Refill(s) Release Tablet 24 HR Yes 150 mg = 1 Memori a Bupropion -09 tab, PO, l Hydrochlori 11:42: Q24H, # 30 [place] de 150 MG 00 tab, 0 Extended [...] 4- Q12H, tab, l Tablet 11:41: 0 [place] [Eliquis] 00 Refill(s), For Atrial Fibrilatio n [...] 4- Q12H, tab, l Tablet 11:41: 0 Amr[place] [Eliquis] 00 Refill(s), For Atrial Fibrilatio n apixaban 5 2020-0 Yes 5 mg, PO, Me moria MG Oral 4- Q12H, tab, l Tablet 11:41: 0 [place] [Eliquis] 00 Refill(s), For Atrial Fibrilatio n apixaban 5 2020-0 Yes 5 mg, PO, Me moria MG Oral 4-09 Q12H, tab, l Tablet 11:41: 0 [place] [Eliquis] 00 Refill(s), For Atrial Fibrilatio n AMIODarone 2020-0 Yes 200 mg = 1 M emoria 200 mg oral 4-09 tab, PO, l tablet 11:38: Daily, # [place] 00 90 tab, 3 Refill(s) AMIODarone 2020-0 Yes 200 mg = 1 M emoria 200 mg oral 4-09 tab, PO, l tablet 11:38: Daily, # [place] 00 90 tab, 3 Refill(s) AMIODarone 2020-0 Yes 200 mg = 1 M emoria 200 mg oral 4-09 tab, PO, l tablet 11:38: Daily, # [place] 00 90 tab, 3 Refill(s) AMIODarone 2020-0 Yes 200 mg = 1 M emoria 200 mg oral 4-09 tab, PO, l tablet 11:38: Daily, # [place] 00 90 tab, 3 Refill(s) AMIODarone 2020-0 Yes 200 mg = 1 M emoria 200 mg oral 4-09 tab, PO, l tablet 11:38: Daily, # [place] 00 90 tab, 3 Refill(s) AMIODarone 2020-0 Yes 200 mg = 1 M emoria 200 mg oral 4-09 tab, PO, l tablet 11:38: Daily, # [place] 00 90 tab, 3 Refill(s) AMIODarone 2020-0 Yes 200 mg = 1 M emoria 200 mg oral 4-09 tab, PO, l tablet 11:38: Daily, # [place] 00 90 tab, 3 Refill(s) normal 0 [...] 2.13, m2, 0 pantoprazol 2020-0 2020- No Metho di e 08-29 st (PROTONIX) 00:00: 00:00 Hospit a 40 MG EC 00 :00 l tablet sucralfate 2020-0 2020- No Method i (CARAFATE) 08-29 st [...] 00 l predniSONE 2020-0 Yes [facility] (Deltasone) 3 [facility] 20 MG 00:00: tablet 00 predniSONE 2021-0 Yes [facility] (Deltasone) 3-[facility] [...] [facility] 90 4-14 ity of mcg/actuati 00:00: [place] on inhaler 00 [facility] albuterol 2019-0 [...] tablet 00:00: [facility] 00 daily. l NYASIAOVY 2017-0 Yes 1{tbl} QD Take 1 Method i 200-25 mg 3-[address] tablet 00:00: mouth [facility] 00 daily. l DESCROLYY 2017-0 Yes 1{tbl} QD Take 1 Method [...] [facility] Immunization Name Name SARS-COV-2 COVID-19 2022-03-05 [...] [place] 65+ PFIZER COVID-19 2020-07-23 Completed [facility] MRNA VACCINATION 00:00:00 [facility] PFIZER COVID-19 2020-07-23 Completed [facility] MRNA VACCINATION 00:00:00 [facility] PFIZER COVID-19 2020-07-23 Completed [facility] MRNA VACCINATION 00:00:00 [facility] PFIZER COVID-19 2020-07-23 Completed [facility] MRNA VACCINATION 00:00:00 [facility] PFIZER COVID-19 2020-07-23 Completed [facility] MRNA VACCINATION 00:00:00 [facility] PFIZER COVID-19 2020-07-23 Completed [facility] MRNA VACCINATION 00:00:00 [facility] PFIZER COVID-19 2020-07-23 Completed [facility] MRNA VACCINATION 00:00:00 [facility] PFIZER COVID-19 2020-07-23 Completed [facility] MRNA VACCINATION 00:00:00 [facility] PFIZER COVID-19 2020-07-23 Completed [facility] MRNA VACCINATION 00:00:00 [facility] PFIZER COVID-19 2020-07-23 Completed [facility] MRNA VACCINATION 00:00:00 [facility] PFIZER COVID-19 2020-07-23 Completed [facility] MRNA VACCINATION 00:00:00 [facility] PFIZER COVID-19 2020-07-23 Completed [facility] MRNA VACCINATION 00:00:00 [facility] PFIZER COVID-19 2020-07-23 Completed [facility] MRNA VACCINATION 00:00:00 [facility] PFIZER COVID-19 2020-07-23 Completed [facility] MRNA VACCINATION 00:00:00 [facility] PFIZER COVID-19 2020-07-23 Completed [facility] MRNA VACCINATION 00:00:00 [facility] PFIZER COVID-19 2020-07-23 Completed [facility] MRNA VACCINATION 00:00:00 [facility] SARS-COV-2 COVID-19 2020-07-23 Completed Unive [facility]ity of PFIZER VACCINE 00:00:00 [facility] SARS-COV-2 COVID-19 2020-07-23 Completed Unive rsity of PFIZER VACCINE 00:00:00 [facility] SARS-COV-2 COVID-19 2020-07-23 Completed Unive rsity of PFIZER VACCINE 00:00:00 [facility] SARS-COV-2 COVID-19 2020-07-23 Completed Unive rsity of PFIZER VACCINE 00:00:00 [facility] PFIZER COVID-19 2020-07-23 Completed [facility] MRNA VACCINATION 00:00:00 [facility] PFIZER COVID-19 2020-07-02 Completed [facility] MRNA VACCINATION 00:00:00 [facility] PFIZER COVID-19 2020-07-02 Completed [facility] MRNA VACCINATION 00:00:00 [facility] PFIZER COVID-19 2020-07-02 Completed [facility] MRNA VACCINATION 00:00:00 [facility] PFIZER COVID-19 2020-07-02 Completed [facility] MRNA VACCINATION 00:00:00 [facility] PFIZER COVID-19 2020-07-02 Completed [facility] MRNA VACCINATION 00:00:00 [facility] PFIZER COVID-19 2020-07-02 Completed [facility] MRNA VACCINATION 00:00:00 [facility] PFIZER COVID-19 2020-07-02 Completed [facility] MRNA VACCINATION 00:00:00 [facility] PFIZER COVID-19 2020-07-02 Completed [facility] MRNA VACCINATION 00:00:00 [facility] PFIZER COVID-19 2020-07-02 Completed [facility] MRNA VACCINATION 00:00:00 [facility] PFIZER COVID-19 2020-07-02 Completed [facility] MRNA VACCINATION 00:00:00 [facility] PFIZER COVID-19 2020-07-02 Completed [facility] MRNA VACCINATION 00:00:00 [facility] PFIZER COVID-19 2020-07-02 Completed [facility] MRNA VACCINATION 00:00:00 [facility] PFIZER COVID-19 2020-07-02 Completed [facility] MRNA VACCINATION 00:00:00 [facility] PFIZER COVID-19 2020-07-02 Completed [facility] MRNA VACCINATION 00:00:00 [facility] PFIZER COVID-19 2020-07-02 Completed [facility] MRNA VACCINATION 00:00:00 [facility] PFIZER COVID-19 2020-07-02 Completed [facility] MRNA VACCINATION 00:00:00 Hospital SARS-COV-2 COVID-19 2020-07-02 Completed Unive rsity of PFIZER VACCINE 00:00:00 [facility] SARS-COV-2 COVID-19 2020-07-02 Completed [facility] of PFIZER VACCINE 00:00:00 [facility] SARS-COV-2 COVID-19 2020-07-02 Completed [facility] of PFIZER VACCINE 00:00:00 [facility] SARS-COV-2 COVID-19 2020-07-02 Completed [facility] of PFIZER VACCINE 00:00:00 [facility] PFIZER COVID-19 2020-07-02 Completed [facility] MRNA VACCINATION 00:00:00 [facility] Influenza Virus 2017-03-08 Completed [facility] Vaccine 00:00:00 [facility] Influenza Virus 2017-03-08 Completed [facility] Vaccine 00:00:00 [facility] Influenza Virus 2017-03-08 Completed [facility] Vaccine 00:00:00 [facility] Influenza Virus 2017-03-08 Completed [facility] of Vaccine 00:00:00 [facility] Influenza Virus 2017-03-08 Completed [facility] of Vaccine 00:00:00 [facility] Influenza Virus 2017-03-08 Completed [facility] Vaccine 00:00:00 [facility] Influenza Virus 2017-03-08 Completed [facility] Vaccine 00:00:00 [facility] Influenza Virus 2017-03-08 Completed [facility] of Vaccine 00:00:00 [facility] Influenza Virus 2014-01-30 Completed [facility] of Vaccine (3+ yrs) 00:00:00 [facility] Pneumococcal 13 2014-01-30 Completed Universit y of Conjugate, PCV13 00:00:[address] [facility] dical (Prevnar 13) Branch Influenza Virus 2014-01-30 Completed [facility] y of Vaccine (3+ yrs) 00:00:00 [facility] Pneumococcal 13 2014-01-30 Completed Universit y of Conjugate, PCV13 00:00:00 [facility] dical (Prevnar 13) Branch Influenza Virus 2014-01-30 Completed Universit y of Vaccine (3+ yrs) 00:00:00 [facility] Branch Pneumococcal 13 2014-01-30 Completed Universit y of Conjugate, PCV13 00:00:00 [facility] dical (Prevnar 13) Branch Influenza Virus 2014-01-30 Completed Universit y of Vaccine (3+ yrs) 00:00:00 [place] [facility] Pneumococcal 13 2014-01-30 Completed Universit y of Conjugate, PCV13 00:00:00 [facility] dical (Prevnar 13) Branch Influenza Virus 2014-01-30 Completed Universit y of Vaccine (3+ yrs) 00:00:00 [place] [facility] Pneumococcal 13 2014-01-30 Completed Universit y of Conjugate, PCV13 00:00:00 [facility] dical (Prevnar 13) Branch Influenza Virus 2014-01-30 Completed Universit y of Vaccine (3+ yrs) 00:00:00 [facility] dical Branch Pneumococcal 13 2014-01-30 Completed Universit y of Conjugate, PCV13 00:00:00 [facility] dical (Prevnar 13) Branch Influenza Virus 2014-01-30 Completed Universit y of Vaccine (3+ yrs) 00:00:00 [facility] dical Branch Pneumococcal 13 2014-01-30 Completed Universit y of Conjugate, PCV13 00:00:00 [facility] dical (Prevnar 13) Branch Influenza Virus 2014-01-30 Completed Universit y of Vaccine (3+ yrs) 00:00:00 [facility] dical Branch Pneumococcal 13 2014-01-30 Completed Universit y of Conjugate, PCV13 00:00:00 [facility] dical (Prevnar 13) Branch Pneumococcal 2012-02-16 Completed University o f Polysaccharide, 00:00:00 [place] [facility] PPSV23 (PNEUMOVAX) Branch Influenza Virus 2012-02-16 Completed Universit y of Vaccine 00:00:00 [facility] PPD (TB) 2012-02-16 Completed University of 00:00:00 [facility] Pneumococcal 2012-02-16 Completed University o f Polysaccharide, 00:00:00 [place] [facility] PPSV23 (PNEUMOVAX) Branch Influenza Virus 2012-02-16 Completed Universit y of Vaccine 00:00:00 [facility] PPD (TB) 2012-02-16 Completed University of 00:00:00 [facility] Pneumococcal 2012-02-16 Completed University o f Polysaccharide, 00:00:00 [facility] ical PPSV23 (PNEUMOVAX) Branch Influenza Virus 2012-02-16 Completed Universit y of Vaccine 00:00:00 [facility] PPD (TB) 2012-02-16 Completed University of 00:00:00 [facility] Pneumococcal 2012-02-16 Completed University o f Polysaccharide, 00:00:00 [place] [facility] PPSV23 (PNEUMOVAX) Branch Influenza Virus 2012-02-16 Completed Universit y of Vaccine 00:00:00 [facility] PPD (TB) 2012-02-16 Completed University of 00:00:00 [facility] Pneumococcal 2012-02-16 Completed University o f Polysaccharide, 00:00:00 [place] [facility] PPSV23 (PNEUMOVAX) Branch Influenza Virus 2012-02-16 Completed Universit y of Vaccine 00:00:00 [facility] PPD (TB) 2012-02-16 Completed University of 00:00:00 [facility] Pneumococcal 2012-02-16 Completed University o f Polysaccharide, 00:00:00 [place] [facility] PPSV23 (PNEUMOVAX) Branch Influenza Virus 2012-02-16 Completed Universit y of Vaccine 00:00:00 [facility] PPD (TB) 2012-02-16 Completed University of 00:00:00 [facility] Pneumococcal 2012-02-16 Completed University o f Polysaccharide, 00:00:00 [place] [facility] PPSV23 (PNEUMOVAX) Branch Influenza Virus 2012-02-16 Completed Universit y of Vaccine 00:00:00 [facility] PPD (TB) 2012-02-16 Completed University of 00:00:00 [facility] Pneumococcal 2012-02-16 Completed University o f Polysaccharide, 00:00:00 [place] [facility] PPSV23 (PNEUMOVAX) Branch Influenza Virus 2012-02-16 Completed Universit y of Vaccine 00:00:00 [facility] PPD (TB) 2012-02-16 Completed University of 00:00:00 [facility] Hep B, Adol or Pedi 2011-09-01 Completed Unive rsity of Dosage 00:00:00 [facility] Hep B, Adol or Pedi 2011-09-01 Completed Unive rsity of Dosage 00:00:00 [facility] Hep B, Adol or Pedi 2011-09-01 Completed Unive rsity of Dosage 00:00:00 [facility] Hep B, Adol or Pedi [...] Unive rsity of Dosage 00:00:00 [facility] Branch Hep B, Adol or Pedi 2011-03-17 Completed Unive rsity of Dosage 00:00:00 [facility] Influenza Virus 2011-02-10 Completed Universit y of Vaccine 00:00:00 [place] [facility] Hep B, Adol or Pedi 2011-02-10 Completed Unive rsity of Dosage 00:00:00 [facility] Influenza Virus 2011-02-10 Completed Universit y of Vaccine 00:00:00 [facility] Hep B, Adol or Pedi 2011-02-10 Completed Unive rsity of Dosage 00:00:00 [facility] Influenza Virus 2011-02-10 Completed Universit y of Vaccine 00:00:00 [facility] Hep B, Adol or Pedi 2011-02-10 Completed Unive rsity of Dosage 00:00:00 [facility] Influenza Virus 2011-02-10 Completed Universit y of Vaccine 00:00:00 [facility] Hep B, Adol or Pedi 2011-02-10 Completed Unive rsity of Dosage 00:00:00 [facility] Influenza Virus 2011-02-10 Completed Universit y of Vaccine 00:00:00 [facility] Hep B, Adol or Pedi 2011-02-10 Completed Unive rsity of Dosage 00:00:00 [facility] Influenza Virus 2011-02-10 Completed Universit y of Vaccine 00:00:00 [facility] Hep B, Adol or Pedi 2011-02-10 Completed Unive rsity of Dosage 00:00:00 [facility] Influenza Virus 2011-02-10 Completed Universit y of Vaccine 00:00:00 [facility] Hep B, Adol or Pedi 2011-02-10 Completed Unive rsity of Dosage 00:00:00 [facility] Influenza Virus 2011-02-10 Completed Universit y of Vaccine 00:00:00 [facility] Hep B, Adol or Pedi 2011-02-10 Completed Unive rsity of Dosage 00:00:00 [facility] PPD (TB) 2010-11-18 Completed University of 00:00:00 [facility] TDAP (ADACEL) 2010-11-18 Completed University of VACCINE 00:00:00 [facility] PPD (TB) 2010-11-18 Completed University of 00:00:00 [facility] TDAP (ADACEL) 2010-11-18 Completed University of VACCINE 00:00:00 [facility] PPD (TB) 2010-11-18 Completed University of 00:00:00 [facility] TDAP (ADACEL) 2010-11-18 Completed University of VACCINE 00:00:00 [facility] PPD (TB) 2010-11-18 Completed University of 00:00:00 [facility] TDAP (ADACEL) 2010-11-18 Completed University of VACCINE 00:00:00 [facility] PPD (TB) 2010-11-18 Completed University of 00:00:00 [facility] TDAP (ADACEL) 2010-11-18 Completed University of VACCINE 00:00:00 [facility] PPD (TB) 2010-11-18 Completed University of 00:00:00 [facility] TDAP (ADACEL) 2010-11-18 Completed University of VACCINE 00:00:00 [facility] PPD (TB) 2010-11-18 Completed University of 00:00:00 [facility] TDAP (ADACEL) 2010-11-18 Completed University of VACCINE 00:00:00 [facility] PPD (TB) 2010-11-18 Completed University of 00:00:00 [facility] TDAP (ADACEL) 2010-11-18 Completed University of VACCINE 00:00:00 [facility] HEPATITIS A 2004-03-02 Completed University of 00:00:00 [facility] HEPATITIS A 2004-03-02 Completed University of 00:00:00 [facility] HEPATITIS A 2004-03-02 Completed University of 00:00:00 [facility] HEPATITIS A 2004-03-02 Completed University of 00:00:00 [facility] HEPATITIS A 2004-03-02 Completed University of 00:00:00 [facility] HEPATITIS A 2004-03-02 Completed University of 00:00:00 [facility] HEPATITIS A 2004-03-02 Completed University of 00:00:00 [facility] HEPATITIS A 2004-03-02 Completed University of 00:00:00 [facility] HEPATITIS A 2003-08-01 Completed University of 00:00:00 [facility] HEPATITIS A 2003-08-01 Completed University of 00:00:00 [facility] HEPATITIS A 2003-08-01 Completed University of 00:00:00 [facility] HEPATITIS A 2003-08-01 Completed University of 00:00:00 [facility] HEPATITIS A 2003-08-01 Completed University of 00:00:00 [facility] HEPATITIS A 2003-08-01 Completed University of 00:00:00 [facility] HEPATITIS A 2003-08-01 Completed University of 00:00:00 [facility] HEPATITIS A 2003-08-01 Completed University of 00:00:00 [facility] Pneumococcal 2001-10-04 Completed University o f Polysaccharide, 00:00:00 [place] [facility] PPSV23 (PNEUMOVAX) Branch PPD (TB) 2001-10-04 Completed University of 00:00:00 [facility] Pneumococcal 2001-10-04 Completed University o f Polysaccharide, 00:00:00 [place] [facility] PPSV23 (PNEUMOVAX) Branch PPD (TB) 2001-10-04 Completed University of 00:00:00 [facility] Pneumococcal 2001-10-04 Completed University o f Polysaccharide, 00:00:00 [place] [facility] PPSV23 (PNEUMOVAX) Branch PPD (TB) 2001-10-04 Completed University of 00:00:00 [facility] Pneumococcal 2001-10-04 Completed University o f Polysaccharide, 00:00:00 [place] [facility] PPSV23 (PNEUMOVAX) Branch PPD (TB) 2001-10-04 Completed University of 00:00:00 [facility] Pneumococcal 2001-10-04 Completed University o f Polysaccharide, 00:00:00 [place] [facility] PPSV23 (PNEUMOVAX) Branch PPD (TB) 2001-10-04 Completed University of 00:00:00 [facility] Pneumococcal 2001-10-04 Completed University o f Polysaccharide, 00:00:00 [place] [facility] PPSV23 (PNEUMOVAX) Branch PPD (TB) 2001-10-04 Completed University of 00:00:00 [facility] Pneumococcal 2001-10-04 Completed University o f Polysaccharide, 00:00:00 [place] [facility] PPSV23 (PNEUMOVAX) Branch PPD (TB) 2001-10-04 Completed University of 00:00:00 [facility] Pneumococcal 2001-10-04 Completed [place] o f Polysaccharide, 00:00:00 [place] [facility] PPSV23 (PNEUMOVAX) Branch PPD (TB) 2001-10-04 Completed University of 00:00:00 [facility] Vital Signs Vital Name Observation Time Observation Value Comments Source Systolic blood 2022-02-16 21:41:00 169 mm[Hg] Univer sity of pressure [facility] Diastolic blood 2022-02-16 21:41:00 86 mm[Hg] Unive rsity of [facility] Heart rate 2022-02-16 21:41:00 51 /min [facility] Body temperature 2022-02-16 21:41:00 36.56 Amina [facility] 2022-02-16 21:41:00 17 /min [facility] Oxygen saturation in 2022-02-16 21:41:00 98 /min [facility] Arterial blood by [facility] Pulse oximetry Branch Body height 2022-02-11 16:02:00 162.6 cm [facility] Body weight 2022-02-11 16:02:00 79.379 kg [facility] BMI 2022-02-11 16:02:00 30.04 kg/m2 [facility] Systolic blood 2021-11-20 13:47:00 165 mm[Hg] Univer sity of pressure [facility] Diastolic blood 2021-11-20 13:47:00 83 mm[Hg] Unive rsity of pressure [facility] Heart rate 2021-11-20 13:47:00 58 /min [facility] [place] [facility] Body temperature 2021-11-20 13:42:00 36.39 Amina Univ ersity of [place] [facility] Respiratory rate 2021-11-20 13:42:00 16 /min Univ ersity of [facility] Body height 2021-11-20 13:42:00 162.6 cm [facility] [place] [facility] Body weight 2021-11-20 13:42:00 84.369 kg [facility] [place] [facility] BMI 2021-11-20 13:42:00 31.93 kg/m2 Universi ty of [facility] Systolic blood 2021-07-14 15:18:00 142 mm[facility]Hg[facility] Di[facility] blood 2021-07-14 15:18:00 76 mm[facility]Hg[facility] Heart rate 2021-07-14 15:18:00 61 [facility] 2021-07-14 15:18:00 [facility] Body weight 2021-07-14 15:18:00 [facility]802 [facility] BMI 2021-07-14 15:18:00 35.87 [facility] Systolic blood 2022-03-05 15:23:00 167 mm[Hg] Univer sity of pressure [facility] Diastolic blood 2022-03-05 15:23:00 105 mm[Hg] Unive rsity of pressure [facility] Heart rate 2022-03-05 15:23:00 49 /min [facility] [place] [facility] Body temperature 2022-03-05 15:18:00 36.67 Amina Univ ersity of [facility] Branch Respiratory rate 2022-03-05 15:18:00 18 /min Univ ersity of [facility] Body height 2022-03-05 15:18:00 162.6 cm [facility] [place] [facility] Body weight 2022-03-05 15:18:00 74.707 kg Universi ty of [facility] BMI 2022-03-05 15:18:00 28.27 [facility] Oxygen saturation in 2022-02-16 21:41:00 98 /min University of Arterial blood by [facility] Pulse oximetry Branch Systolic blood 2020-12-08 15:48:00 125 mm[Hg] Method [facility] pressure Diastolic blood 2020-12-08 15:48:00 76 mm[Hg] [facility] pressure Heart rate 2020-12-08 15:48:00 64 /min [facility] Body temperature 2020-12-08 15:48:00 36.61 Amina [facility] Respiratory rate 2020-12-08 15:48:00 17 /min [facility] Body height 2020-12-08 15:48:00 162.6 cm [facility] Body weight 2020-12-08 15:48:00 98.884 kg [facility] BMI 2020-12-08 15:48:00 37.42 kg/m2 [facility] Oxygen saturation in 2020-12-08 15:48:00 97 /min [facility] Arterial blood by Pulse oximetry Respitory Rate 2020-08-30 13:00:00 Memori al [facility] Systolic (mm Hg) 2020-08-30 13:00:00 Caesar rial [place] Diastolic (mm Hg) 2020-08-30 13:00:00 Mem orial [place] Systolic (mm Hg) 2020-08-30 11:00:00 Caesar rial [facility] Diastolic (mm Hg) 2020-08-30 11:00:00 Mem orial [facility] Temperature Oral (F) 2020-08-30 11:00:00 98.4 F [facility] Respitory Rate 2020-08-30 11:00:00 [facility] Respitory Rate 2020-08-30 10:00:00 Memori al [place] Systolic (mm Hg) 2020-08-30 10:00:00 Caesar rial [facility] Diastolic (mm Hg) 2020-08-30 10:00:00 Mem orial [place] Temperature Oral (F) 2020-08-30 00:00:00 96.9 F [facility] Temperature Oral (F) 2020-08-29 11:26:00 97.6 F [facility] Height 2020-08-29 10:30:00 162.56 cm [facility] Weight 2020-08-29 10:30:00 [facility] BMI Calculated 2020-08-29 10:30:00 [place] Procedures Procedure Date / Time Performing Clinician Source Performed SARS-COV-2 COVID-19 2022-03-05 16:09:27 [facility] DIMITRIS-SUCROSE VACCINE 12 Medical Branch YRS+, BIVALENT 0.3ML, IM, (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) FLU 2022-03-05 16:09:27 [facility] [place] VACC(),65+YR,0.5 Medica l Branch ML,IM,ADJUVANTED,QUAD(FLUA D) MAGNESIUM 2022-02-15 09:41:00 Radha Sofia [facility] BASIC METABOLIC PANEL (NA, 2022-02-15 09:41:00 [facility] K, CL, CO2, GLUCOSE, BUN, Medica l Branch CREATININE, CA) CBC WITH DIFF 2022-02-15 09:41:00 Radha Sofia [facility] N-TERMINAL PRO-BNP 2022-02-15 09:41:00 Sofia Garcia [facility] CBC WITH DIFF 2022-02-15 09:41:00 Radha [facility] BASIC METABOLIC PANEL (NA, 2022-02-15 09:41:00 [facility]ia [facility] K, CL, CO2, GLUCOSE, BUN, Medica l Branch CREATININE, CA) MAGNESIUM 2022-02-15 09:41:00 Radha [facility] N-TERMINAL PRO-BNP 2022-02-15 09:41:00 Sofia Garcia [facility] BASIC METABOLIC PANEL (NA, 2022-02-13 09:40:00 [facility]ia [facility] K, CL, CO2, GLUCOSE, BUN, Medica l Branch CREATININE, CA) CBC WITH DIFF 2022-02-13 09:40:00 Radha [facility] BASIC METABOLIC PANEL (NA, 2022-02-13 09:40:00 Radha [facility] K, CL, CO2, GLUCOSE, BUN, Medica l Branch CREATININE, CA) CBC WITH DIFF 2022-02-13 09:40:00 [facility] 2022-02-11 23:41:00 Radha [facility] N-TERMINAL PRO-BNP 2022-02-11 23:41:00 [facility] 2022-02-11 23:41:00 [facility]NP 2022-02-11 23:41:00 [facility] ROUTINE & RHYTHM 2022-02-11 22:15:36 [facility] 2022-02-11 21:26:50 [facility]TT[facility] 2022-02-11 21:26:50 [facility]EL[facility] W 2022-02-11 07:45:43 Reilly Means [facility] CONTRAST [facility] CT ABDOMEN PELVIS W 2022-02-11 07:45:43 Miguelangel Reilly [facility] RAPID INFLUENZA A/B 2022-02-11 06:54:00 Miguelangel [facility] RAPID INFLUENZA A/B 2022-02-11 06:54:00 Reilly Means [facility] URINALYSIS 2022-02-11 06:45:00 [facility]illy [facility] URINE CULTURE 2022-02-11 06:45:00 Reilly [facility] URINALYSIS 2022-02-11 06:45:00 [facility]illy [facility] URINE CULTURE 2022-02-11 06:45:00 [facility]illy [facility] HB ECG ROUTINE & RHYTHM 2022-02-11 05:22:08 Reilly Means [facility] HB ECG ROUTINE & RHYTHM 2022-02-11 05:22:08 Reilly Means [facility] BLOOD CULTURE SCREEN 2022-02-11 04:58:00 [facility] TROPONIN I 2022-02-11 04:58:00 [facility] COMP. METABOLIC PANEL 2022-02-11 04:58:00 Reilly Means [facility] ([id number]) Medical Branch CBC WITH DIFF 2022-02-11 04:58:00 [facility]illy [facility] PROTHROMBIN TIME / INR 2022-02-11 04:58:00 Reilly Means [facility] ACTIVATED PARTIAL THRMPLAS 2022-02-11 04:58:00 Reilly Means [facility] N-TERMINAL PRO-BNP 2022-02-11 04:58:00 Reilly Means [facility] LACTIC ACID WHOLE BLOOD 2022-02-11 04:58:00 Reilly Means [facility] COVID-19 (ID NOW RAPID 2022-02-11 04:58:00 Reilly Means [facility] TESTING) Medical Branch LAB ONLY COVID 2022-02-11 04:58:00 Reilly Means [facility] CBC WITH DIFF 2022-02-11 04:58:00 Reilly [facility] ACTIVATED PARTIAL THRMPLAS 2022-02-11 04:58:00 Reilly Means [facility] PROTHROMBIN TIME / INR 2022-02-11 04:58:00 Reilly Means [facility] COVID-19 (ID NOW RAPID 2022-02-11 04:58:00 Reilly Means [facility] TESTING) Medical Branch COMP. METABOLIC PANEL 2022-02-11 04:58:00 Reilly Means [facility] ([id number]) Medical Branch TROPONIN I 2022-02-11 04:58:00 Reilly [facility] N-TERMINAL PRO-BNP 2022-02-11 04:58:00 Reilly Means [facility] BLOOD CULTURE SCREEN 2022-02-11 04:58:00 Reilly [facility] LACTIC ACID WHOLE BLOOD 2022-02-11 04:58:00 Reilly Means [facility] [place] LAB ONLY COVID 2022-02-11 04:58:00 Reilly Means [facility] Branch XR CHEST 1 VW 2022-02-11 04:27:42 Miguelangel Reilly [facility] Branch XR CHEST 1 VW 2022-02-11 04:27:42 Reilly [facility] HOSPITAL ADMISSION 2022-02-10 05:01:00 Doctor Unassigned, [facility] Section [facility] HOSPITAL ADMISSION 2022-02-10 05:01:00 Doctor Unassigned, [facility] Name [facility] ECG 12-LEAD 2021-07-14 15:14:00 Elan Lira [facility] [id number] 2021-06-17 00:00:00 RIKY CLARK [facility] GASTROINTESTINAL PANEL 2020-12-08 22:21[facility]00 [facility] XR ABDOMEN 1 VW 2020-12-08 18:06:32 Eliseo Arce spital [place] < 1 HOUR 2020-09-05 22:39:00 Eliseo Arce spital SURGICAL PATHOLOGY REQUEST 2020-09-05 21:54:00 Eliseo Arce [facility] XR CHEST 1 VW PORTABLE 2020-09-05 19:55:00 Jailyn [facility] DISCHARGE PATIENT 2020-09-05 17:27:55 Lucas Harris [facility] [place] AN ELECTIVE 2020-09-05 16:47:23 Kirit Flood [facility] ENDOTRACHEAL AIRWAY EGD, INTRAOPERATIVE 2020-09-05 16:27:00 [facility] PARTIAL THROMBOPLASTIN 2020-09-05 15:04:00 Sarai Maharaj [facility] TIME (PTT) M. PROTHROMBIN TIME WITH INR 2020-09-05 15:04:00 Mindy Maharaj [facility] M. Plan of Care Planned Activity Planned Date Details Comments Source Future Scheduled 2022-03-25 SHINGLES VACCINES ([address] [facility] Test 14:48:42 of 2) [code = SHINGLES VACCINES (1 of 2)] Future Scheduled 2022-03-25 BREAST CANCER [facility] Test 14:48:42 SCREENING [code = BREAST CANCER SCREENING] Future Scheduled 2022-03-25 COLONOSCOPY SCREENING [facility] Test 14:48:42 [code = COLONOSCOPY SCREENING] Future Scheduled 2022-03-25 HEPATITIS B VACCINES Met [facility] Test 14:48:42 (1 of 3 - Risk 3-dose series) [code = HEPATITIS B VACCINES (1 of 3 - Risk 3-dose series)] Future Scheduled 2022-03-25 COVID-19 VACCINE (3 - Me [facility] Test 14:48:42 Booster for Pfizer series) [code = COVID-19 VACCINE (3 - Booster for Pfizer series)] Future Scheduled 2022-03-25 65+ [facility]AL [facility] 14:48:42 VACCINE (4 - PPSV23 if available, else PCV20) [code = 65+ PNEUMOCOCCAL VACCINE (4 - PPSV23 if available, else PCV20)] Future Scheduled 2022-03-25 INFLUENZA VACCINE Method [facility] Test 14:48:42 [code = INFLUENZA VACCINE] Future Scheduled 2022-03-25 SHINGLES VACCINES ([address] [facility] Test 14:48:42 of 2) [code = SHINGLES VACCINES (1 of 2)] Future Scheduled 2022-03-25 BREAST CANCER [facility] Test 14:48:42 SCREENING [code = BREAST CANCER SCREENING] Future Scheduled 2022-03-25 COLONOSCOPY SCREENING [facility] Test 14:48:42 [code = COLONOSCOPY SCREENING] Future Scheduled 2022-03-25 HEPATITIS B VACCINES Met [facility] Test 14:48:42 (1 of 3 - Risk 3-dose series) [code = HEPATITIS B VACCINES (1 of 3 - Risk 3-dose series)] Future Scheduled 2022-03-25 COVID-19 VACCINE (3 - Me [facility] Test 14:48:42 Booster for Pfizer series) [code = COVID-19 VACCINE (3 - Booster for Pfizer series)] Future Scheduled 2022-03-25 65+ [facility]OCOCCAL [facility] Test 14:48:42 VACCINE (4 - PPSV23 if available, else PCV20) [code = 65+ PNEUMOCOCCAL VACCINE (4 - PPSV23 if available, else PCV20)] Future Scheduled 2022-03-25 INFLUENZA VACCINE Method [facility] Test 14:48:42 [code = INFLUENZA VACCINE] Future Scheduled 2022-03-25 SHINGLES VACCINES ([address] [facility] Test 14:48:42 of 2) [code = SHINGLES VACCINES (1 of 2)] Future Scheduled 2022-03-25 BREAST CANCER [facility] Test 14:48:42 SCREENING [code = BREAST CANCER SCREENING] Future Scheduled 2022-03-25 COLONOSCOPY SCREENING [facility] Test 14:48:42 [code = COLONOSCOPY SCREENING] Future Scheduled 2022-03-25 HEPATITIS B VACCINES Met [facility] Test 14:48:42 (1 of 3 - Risk 3-dose series) [code = HEPATITIS B VACCINES (1 of 3 - Risk 3-dose series)] Future Scheduled 2022-03-25 COVID-19 VACCINE (3 - [facility] Test 14:48:42 Booster for Pfizer series) [code = COVID-19 VACCINE (3 - Booster for Pfizer series)] Future Scheduled 2022-03-25 65+ [facility] 14:48:42 VACCINE (4 - PPSV23 if available, else PCV20) [code = 65+ PNEUMOCOCCAL VACCINE (4 - PPSV23 if available, else PCV20)] Future Scheduled 2022-03-25 INFLUENZA VACCINE Method [facility] Test 14:48:42 [code = INFLUENZA VACCINE] Future Scheduled 2022-03-25 SHINGLES VACCINES ([address] [facility] Test 14:48:42 of 2) [code = SHINGLES VACCINES (1 of 2)] Future Scheduled 2022-03-25 BREAST CANCER [facility] Test 14:48:42 SCREENING [code = BREAST CANCER SCREENING] Future Scheduled 2022-03-25 COLONOSCOPY SCREENING [facility] Test 14:48:42 [code = COLONOSCOPY SCREENING] Future Scheduled 2022-03-25 HEPATITIS B VACCINES Met [facility] Test 14:48:42 (1 of 3 - Risk 3-dose series) [code = HEPATITIS B VACCINES (1 of 3 - Risk 3-dose series)] Future Scheduled 2022-03-25 COVID-19 VACCINE (3 - [facility] Test 14:48:42 Booster for Pfizer series) [code = COVID-19 VACCINE (3 - Booster for Pfizer series)] Future Scheduled 2022-03-25 65+ [facility]AL [facility] 14:48:42 VACCINE (4 - PPSV23 if available, else PCV20) [code = 65+ PNEUMOCOCCAL VACCINE (4 - PPSV23 if available, else PCV20)] Future Scheduled 2022-03-25 INFLUENZA VACCINE Method [facility] Test 14:48:42 [code = INFLUENZA VACCINE] Future Scheduled 2022-03-04 SHINGLES VACCINES ([address] [facility] Test 14:03:57 of 2) [code = SHINGLES VACCINES (1 of 2)] Future Scheduled 2022-03-04 BREAST CANCER [facility] Test 14:03:57 SCREENING [code = BREAST CANCER SCREENING] Future Scheduled 2022-03-04 COLONOSCOPY SCREENING [facility] Test 14:03:57 [code = COLONOSCOPY SCREENING] Future Scheduled 2022-03-04 HEPATITIS B VACCINES Met [facility] Test 14:03:57 (1 of 3 - Risk 3-dose series) [code = HEPATITIS B VACCINES (1 of 3 - Risk 3-dose series)] Future Scheduled 2022-03-04 COVID-19 VACCINE (3 - [facility] Test 14:03:57 Booster for Pfizer series) [code = COVID-19 VACCINE (3 - Booster for Pfizer series)] Future Scheduled 2022-03-04 65+ [facility] 14:03:57 VACCINE (4 - PPSV23 if available, else PCV20) [code = 65+ PNEUMOCOCCAL VACCINE (4 - PPSV23 if available, else PCV20)] Future Scheduled 2022-03-04 INFLUENZA VACCINE Method [facility] Test 14:03:57 [code = INFLUENZA VACCINE] Future Scheduled 2022-03-04 SHINGLES VACCINES ([address] [facility] Test 14:03:57 of 2) [code = SHINGLES VACCINES (1 of 2)] Future Scheduled 2022-03-04 BREAST CANCER [facility] Test 14:03:57 SCREENING [code = BREAST CANCER SCREENING] Future Scheduled 2022-03-04 COLONOSCOPY SCREENING [facility] Test 14:03:57 [code = COLONOSCOPY SCREENING] Future Scheduled 2022-03-04 HEPATITIS B VACCINES Met [facility] Test 14:03:57 (1 of 3 - Risk 3-dose series) [code = HEPATITIS B VACCINES (1 of 3 - Risk 3-dose series)] Future Scheduled 2022-03-04 COVID-19 VACCINE (3 - [facility] Test 14:03:57 Booster for Pfizer series) [code = COVID-19 VACCINE (3 - Booster for Pfizer series)] Future Scheduled 2022-03-04 65+ PNEUMOCOCCAL [facility] Test 14:03:57 VACCINE (4 - PPSV23 if available, else PCV20) [code = 65+ PNEUMOCOCCAL VACCINE (4 - PPSV23 if available, else PCV20)] Future Scheduled 2022-03-04 INFLUENZA VACCINE Method [facility] Test 14:03:57 [code = INFLUENZA VACCINE] Future Scheduled 2022-03-04 SHINGLES VACCINES ([address] [facility] Test 14:03:57 of 2) [code = SHINGLES VACCINES (1 of 2)] Future Scheduled 2022-03-04 BREAST CANCER [facility] Test 14:03:57 SCREENING [code = BREAST CANCER SCREENING] Future Scheduled 2022-03-04 COLONOSCOPY SCREENING [facility] Test 14:03:57 [code = COLONOSCOPY SCREENING] Future Scheduled 2022-03-04 HEPATITIS B VACCINES Met [facility] Test 14:03:57 (1 of 3 - Risk 3-dose series) [code = HEPATITIS B VACCINES (1 of 3 - Risk 3-dose series)] Future Scheduled 2022-03-04 COVID-19 VACCINE (3 - Me [facility] Test 14:03:57 Booster for Pfizer series) [code = COVID-19 VACCINE (3 - Booster for Pfizer series)] Future Scheduled 2022-03-04 65+ [facility]CCAL [facility] 14:03:57 VACCINE (4 - PPSV23 if available, else PCV20) [code = 65+ PNEUMOCOCCAL VACCINE (4 - PPSV23 if available, else PCV20)] Future Scheduled 2022-03-04 INFLUENZA VACCINE Method [facility] Test 14:03:57 [code = INFLUENZA VACCINE] Future Scheduled 2022-03-04 SHINGLES VACCINES ([address] [facility] Test 14:03:57 of 2) [code = SHINGLES VACCINES (1 of 2)] Future Scheduled 2022-03-04 BREAST CANCER [facility] Test 14:03:57 SCREENING [code = BREAST CANCER SCREENING] Future Scheduled 2022-03-04 COLONOSCOPY SCREENING [facility] Test 14:03:57 [code = COLONOSCOPY SCREENING] Future Scheduled 2022-03-04 HEPATITIS B VACCINES Met [facility] Test 14:03:57 (1 of 3 - Risk 3-dose series) [code = HEPATITIS B VACCINES (1 of 3 - Risk 3-dose series)] Future Scheduled 2022-03-04 COVID-19 VACCINE (3 - Me [facility] Test 14:03:57 Booster for Pfizer series) [code = COVID-19 VACCINE (3 - Booster for Pfizer series)] Future Scheduled 2022-03-04 65+ [facility]CCAL [facility] 14:03:57 VACCINE (4 - PPSV23 if available, else PCV20) [code = 65+ PNEUMOCOCCAL VACCINE (4 - PPSV23 if available, else PCV20)] Future Scheduled 2022-03-04 INFLUENZA VACCINE Method [facility] Test 14:03:57 [code = INFLUENZA VACCINE] Future Scheduled 2022-02-11 SHINGLES VACCINES ([address] [facility] Test 13:39:12 of 2) [code = SHINGLES VACCINES (1 of 2)] Future Scheduled 2022-02-11 BREAST CANCER [facility] Test 13:39:12 SCREENING [code = BREAST CANCER SCREENING] Future Scheduled 2022-02-11 COLONOSCOPY SCREENING [facility] Test 13:39:12 [code = COLONOSCOPY SCREENING] Future Scheduled 2022-02-11 HEPATITIS B VACCINES Met [facility] Test 13:39:12 (1 of 3 - Risk 3-dose series) [code = HEPATITIS B VACCINES (1 of 3 - Risk 3-dose series)] Future Scheduled 2022-02-11 COVID-19 VACCINE (3 - [facility] Test 13:39:12 Booster for Pfizer series) [code = COVID-19 VACCINE (3 - Booster for Pfizer series)] Future Scheduled 2022-02-11 65+ [facility]CCAL [facility] 13:39:12 VACCINE (4 - PPSV23 or PCV20) [code = 65+ PNEUMOCOCCAL VACCINE (4 - PPSV23 or PCV20)] Future Scheduled 2022-02-11 INFLUENZA VACCINE Method [facility] Test 13:39:12 [code = INFLUENZA VACCINE] Future Scheduled 2022-01-29 SHINGLES VACCINES ([address] [facility] Test 14:07:20 of 2) [code = SHINGLES VACCINES (1 of 2)] Future Scheduled 2022-01-29 BREAST CANCER [facility] Test 14:07:20 SCREENING [code = BREAST CANCER SCREENING] Future Scheduled 2022-01-29 COLONOSCOPY SCREENING [facility] Test 14:07:20 [code = COLONOSCOPY SCREENING] Future Scheduled 2022-01-29 HEPATITIS B VACCINES Met [facility] Test 14:07:20 (1 of 3 - Risk 3-dose series) [code = HEPATITIS B VACCINES (1 of 3 - Risk 3-dose series)] Future Scheduled 2022-01-29 COVID-19 VACCINE (3 - Me [facility] Test 14:07:20 Booster for Pfizer series) [code = COVID-19 VACCINE (3 - Booster for Pfizer series)] Future Scheduled 2022-01-29 65+ [facility]CCAL [facility] 14:07:20 VACCINE (4 - PPSV23 or PCV20) [code = 65+ PNEUMOCOCCAL VACCINE (4 - PPSV23 or PCV20)] Future Scheduled 2022-01-29 INFLUENZA VACCINE Method [facility] Test 14:07:20 [code = INFLUENZA VACCINE] Future Scheduled 2022-01-29 SHINGLES VACCINES ([address] [facility] Test 14:07:20 of 2) [code = SHINGLES VACCINES (1 of 2)] Future Scheduled 2022-01-29 BREAST CANCER [facility] Test 14:07:20 SCREENING [code = BREAST CANCER SCREENING] Future Scheduled 2022-01-29 COLONOSCOPY SCREENING [facility] Test 14:07:20 [code = COLONOSCOPY SCREENING] Future Scheduled 2022-01-29 HEPATITIS B VACCINES Met [facility] Test 14:07:20 (1 of 3 - Risk 3-dose series) [code = HEPATITIS B VACCINES (1 of 3 - Risk 3-dose series)] Future Scheduled 2022-01-29 COVID-19 VACCINE (3 - [facility] Test 14:07:20 Booster for Pfizer series) [code = COVID-19 VACCINE (3 - Booster for Pfizer series)] Future Scheduled 2022-01-29 65+ [facility]CCAL [facility] 14:07:20 VACCINE (4 - PPSV23 or PCV20) [code = 65+ PNEUMOCOCCAL VACCINE (4 - PPSV23 or PCV20)] Future Scheduled 2022-01-29 INFLUENZA VACCINE Method [facility] Test 14:07:20 [code = INFLUENZA VACCINE] Future Scheduled 2022-01-29 SHINGLES VACCINES ([address] [facility] Test 14:07:20 of 2) [code = SHINGLES VACCINES (1 of 2)] Future Scheduled 2022-01-29 BREAST CANCER [facility] Test 14:07:20 SCREENING [code = BREAST CANCER SCREENING] Future Scheduled 2022-01-29 COLONOSCOPY SCREENING [facility] Test 14:07:20 [code = COLONOSCOPY SCREENING] Future Scheduled 2022-01-29 HEPATITIS B VACCINES Met [facility] Test 14:07:20 (1 of 3 - Risk 3-dose series) [code = HEPATITIS B VACCINES (1 of 3 - Risk 3-dose series)] Future Scheduled 2022-01-29 COVID-19 VACCINE (3 - [facility] Test 14:07:20 Booster for Pfizer series) [code = COVID-19 VACCINE (3 - Booster for Pfizer series)] Future Scheduled 2022-01-29 65+ PNEUMOCOCCAL [facility] Test 14:07:20 VACCINE (4 - PPSV23 or PCV20) [code = 65+ PNEUMOCOCCAL VACCINE (4 - PPSV23 or PCV20)] Future Scheduled 2022-01-29 INFLUENZA VACCINE Method [facility] Test 14:07:20 [code = INFLUENZA VACCINE] Future Scheduled 2022-01-29 SHINGLES VACCINES ([address] [facility] Test 14:07:20 of 2) [code = SHINGLES VACCINES (1 of 2)] Future Scheduled 2022-01-29 BREAST CANCER [facility] Test 14:07:20 SCREENING [code = BREAST CANCER SCREENING] Future Scheduled 2022-01-29 COLONOSCOPY SCREENING [facility] Test 14:07:20 [code = COLONOSCOPY SCREENING] Future Scheduled 2022-01-29 HEPATITIS B VACCINES Met [facility] Test 14:07:20 (1 of 3 - Risk 3-dose series) [code = HEPATITIS B VACCINES (1 of 3 - Risk 3-dose series)] Future Scheduled 2022-01-29 COVID-19 VACCINE (3 - [facility] Test 14:07:20 Booster for Pfizer series) [code = COVID-19 VACCINE (3 - Booster for Pfizer series)] Future Scheduled 2022-01-29 65+ [facility]CCAL [facility] 14:07:20 VACCINE (4 - PPSV23 or PCV20) [code = 65+ PNEUMOCOCCAL VACCINE (4 - PPSV23 or PCV20)] Future Scheduled 2022-01-29 INFLUENZA VACCINE Method [facility] Test 14:07:20 [code = INFLUENZA VACCINE] Future Scheduled 2022-01-20 SHINGLES VACCINES ([address] [facility] Test 06:12:34 of 2) [code = SHINGLES VACCINES (1 of 2)] Future Scheduled 2022-01-20 Screening for [facility] Test 06:12:34 malignant neoplasm of cervix (procedure) [code = [id number]] Future Scheduled 2022-01-20 BREAST CANCER [facility] Test 06:12:34 SCREENING [code = BREAST CANCER SCREENING] Future Scheduled 2022-01-20 COLONOSCOPY SCREENING [facility] Test 06:12:34 [code = COLONOSCOPY SCREENING] Future Scheduled 2022-01-20 HEPATITIS B VACCINES Met [facility] Test 06:12:34 (1 of 3 - Risk 3-dose series) [code = HEPATITIS B VACCINES (1 of 3 - Risk 3-dose series)] Future Scheduled 2022-01-20 COVID-19 VACCINE (3 - [facility] Test 06:12:34 Booster for Pfizer series) [code = COVID-19 VACCINE (3 - Booster for Pfizer series)] Future Scheduled 2022-01-20 65+ [facility]OCOCCAL [facility] 06:12:34 VACCINE (4 - PPSV23 or PCV20) [code = 65+ PNEUMOCOCCAL VACCINE (4 - PPSV23 or PCV20)] Future Scheduled 2022-01-20 INFLUENZA VACCINE Method [facility] Test 06:12:34 [code = INFLUENZA VACCINE] Future Scheduled 2022-01-16 SHINGLES VACCINES ([address] [facility] Test 12:09:25 of 2) [code = SHINGLES VACCINES (1 of 2)] Future Scheduled 2022-01-16 Screening for [facility] Test 12:09:25 malignant neoplasm of cervix (procedure) [code = [id number]] Future Scheduled 2022-01-16 BREAST CANCER [facility] Test 12:09:25 SCREENING [code = BREAST CANCER SCREENING] Future Scheduled 2022-01-16 COLONOSCOPY SCREENING [facility] Test 12:09:25 [code = COLONOSCOPY SCREENING] Future Scheduled 2022-01-16 HEPATITIS B VACCINES Met [facility] Test 12:09:25 (1 of 3 - Risk 3-dose series) [code = HEPATITIS B VACCINES (1 of 3 - Risk 3-dose series)] Future Scheduled 2022-01-16 COVID-19 VACCINE (3 - [facility] Test 12:09:25 Booster for Pfizer series) [code = COVID-19 VACCINE (3 - Booster for Pfizer series)] Future Scheduled 2022-01-16 65+ PNEUMOCOCCAL [facility] Test 12:09:25 VACCINE (4 - PPSV23 or PCV20) [code = 65+ PNEUMOCOCCAL VACCINE (4 - PPSV23 or PCV20)] Future Scheduled 2022-01-16 INFLUENZA VACCINE Method [facility] Test 12:09:25 [code = INFLUENZA VACCINE] Future Scheduled 2022-01-14 SHINGLES VACCINES ([address] [facility] Test 04:11:46 of 2) [code = SHINGLES VACCINES (1 of 2)] Future Scheduled 2022-01-14 Screening for [facility] Test 04:11:46 malignant neoplasm of cervix (procedure) [code = [id number]] Future Scheduled 2022-01-14 BREAST CANCER [facility] Test 04:11:46 SCREENING [code = BREAST CANCER SCREENING] Future Scheduled 2022-01-14 COLONOSCOPY SCREENING [facility] Test 04:11:46 [code = COLONOSCOPY SCREENING] Future Scheduled 2022-01-14 HEPATITIS B VACCINES Met [facility] Test 04:11:46 (1 of 3 - Risk 3-dose series) [code = HEPATITIS B VACCINES (1 of 3 - Risk 3-dose series)] Future Scheduled 2022-01-14 COVID-19 VACCINE (3 - [facility] Test 04:11:46 Booster for Pfizer series) [code = COVID-19 VACCINE (3 - Booster for Pfizer series)] Future Scheduled 2022-01-14 65+ PNEUMOCOCCAL [facility] Test 04:11:46 VACCINE (4 - PPSV23 or PCV20) [code = 65+ PNEUMOCOCCAL VACCINE (4 - PPSV23 or PCV20)] Future Scheduled 2022-01-14 INFLUENZA VACCINE Method [facility] Test 04:11:46 [code = INFLUENZA VACCINE] Future Scheduled 2021-08-26 Screening for [facility] Test 13:02:23 malignant neoplasm of cervix (procedure) [code = [id number]] Future Scheduled 2021-08-26 BREAST CANCER [facility] Test 13:02:23 SCREENING [code = BREAST CANCER SCREENING] Future Scheduled 2021-08-26 COLONOSCOPY SCREENING [facility] Test 13:02:23 [code = COLONOSCOPY SCREENING] Future Scheduled 2021-08-26 Screening for [facility] Test 13:02:23 malignant neoplasm of lung (procedure) [code = [id number]] Future Scheduled 2021-08-26 SHINGLES VACCINES (#1) [facility] Test 13:02:23 [code = SHINGLES VACCINES (#1)] Future Scheduled 2021-08-26 COVID-19 VACCINE (3 - Me [facility] Test 13:02:23 Pfizer risk 4-dose series) [...] Clinicians Facility Department ID 2022-02-18 Outpatient CHW W [id number] [place] 14:30:[address] [place] [address] 2021-07-14 Outpatient SADIKOVIC, [facility] [id number] [place] 09:[facility] 2021[facility]-02 Outpatient HEMATPOUR, [facility] [id number] [place] 13:58:[facility] 2021-04-28 Outpatient HEMATPOUR, [facility] [id number] [place] 11:21:22 [facility]AYAR [facility]alt [facility] 2021-03-20 Emergency [facility] [id number] [facility]12 [facility] HEMATPOUR, [facility] [id number] [place] 08:16:46 [facility]alt [facility] 2020-10-31 Outpatient HEMATPOUR, [facility] [id number] [place] 09:44:50 [facility]alt [facility] 2020-09-30 Outpatient HEMATPOUR, [facility] [id number] [place] 13:16:03 [facility]alt [facility] 2022-04-07 2022-04-07 Outpatient R UNKNOWN, [facility] [id number] Univers 20:40:00 20:40:00 ATTENDING ity [facility] 2022-04-07 2022-04-07 Telephone Devin, 1.2.840.3 [id number] Univers 00:00:00 00:00:00 Robbi Hairston 10478.1.1 i ty of 3.104.2.7 [place] .3.495643 Medica [facility] .[facility] [place] 2022-03-05 2022-03-05 Personnel Worker Santiago Cardenas 1.2.840.1 [id number] Univers 13:45:00 14:00:00 Visit [facility] 23927.1.1 ity of 3.104.2.7 [place] .3.627491 Medica l .[address] [place] [address] 2022-03-05 2022-03-05 Outpatient R [facility] [id number] Univers 13:45:00 13:45:00 [facility] 2022-03-05 2022-03-05 Office Ronald, 1.2.840.9 [id number] Univers 13:00:00 13:30:00 Visit Santiago 98759.1.1 ity of 3.104.2.7 [place] .3.556777 Medica l .[address] [place] [address] 2022-02-26 2022-02-26 Outpatient R [facility] [id number] Univers 08:30:00 08:30:00 [facility] 2022-02-26 2022-02-26 Outpatient R [facility] [id number] Univers 08:30:00 08:30:00 [facility] 2022-02-17 2022-02-17 Transition Stevo, 1.2.840.1 [id number] Univers 00:00:00 00:00:00 of Care Isaias Arredondo 85111.1.1 it y of 3.104.2.7 [place] .3.888768 Medica l .8 [place] 2022-02-10 2022-02-16 Inpatient [facility] [id number] Univers 22:59:00 19:27:00 TOMY itcharlie [facility] 2022-02-10 2022-02-16 [facility] Reilly Means 1.2.840.1 [id number] Univers 22:59:00 19:27:00 Encounter Ofe Shields 03906.1.1 ity of [place] 3[place]104.2.7 [place] .3.806970 Medica [place] .8 [place] 2022-02-11 2022-02-11 Telephone East, 1.2.840.6 [id number] Univers 00:00:00 00:00:00 Santiago 22086.1.1 ity of 3.104.2.7 [place] .3.009466 Medica l .8 [facility] 2022-02-10 2022-02-10 Travel 1.2.840.1 1.2.599.605 [id number] Univers 00:00:00 00:00:00 49400.1.1 350.1.13.10 ity of 3.104.2.7 [place].698 [place] .3.861167 084.8 Medica l .8 [facility] 2022-01-30 2022-01-30 Telephone East, 1.2.840.3 [id number] Univers 00:00:00 00:00:00 Santiago 89541.1.1 ity of 3.104.2.7 [place] .3.971043 Medica l .8 [facility] 2022-01-06 2022-01-06 Orders Doctor FERMIN 1.2.840.114 [id number] Univers 00:00:00 00:00:00 Only Unassigned, JACKELINE 350.1.13.10 ity of Section HOSPITAL 4.2.7.2.686 Yomi as [phone] [facility] porfirio 009 Branch 2021-12-25 2021-12-25 Orders Doctor FERMIN 1.2.840.114 [id number] Univers 00:00:00 00:00:00 Only Unassigned, JACKELINE 350.1.13.10 ity of Section HOSPITAL 4.2.7.2.686 Yomi as [id number] Medi porfirio 009 Branch 2021-12-12 2021-12-13 Emergency X Bill COLES [facility] ERT [id number] Univers 23:53:00 01:52:00 ity of [facility] 2021-12-12 2021-12-13 Emergency Bill Coles [facility] 1.2.840.114 [id number] Univers 23:53:00 01:52:00 Kiersten BULLOCK 350.1.13.10 i [place] of [place] [id number] [facility] 084 [place] 2021-11-20 2021-11-20 Personnel Worker [facility] UNIVERSIT 1.2.840.114 [id number] Univers 09:45:00 10:00:00 Visit [facility] 350.1.13.10 ity of [place] [id number] [facility] 316 Branch 2021-11-20 2021-11-20 Office [facility] 1.2.312.505 [id number] Univers 08:30:00 09:00:00 Visit [facility] 350.1.13.10 i ty of [place] [id number] [facility] 089 [place] 2021-11-20 2021-11-20 Outpatient R [facility] [id number] Univers 08:30:00 08:30:00 [facility] 2021-11-20 2021-11-20 Outpatient R [facility] [id number] Univers 08:30:00 08:30:00 [facility] 2021-11-20 2021-11-20 Outpatient R [facility] [id number] Univers 08:30:00 08:30:00 [facility] 2021-11-20 2021-11-20 Outpatient R [facility] [id number] Univers 08:30:00 08:30:00 [facility] 2021-10-24 2021-10-24 [facility] [id number] Univers 16:27:00 22:26:00 CHARITY [facility] 2021-10-24 2021-10-24 Emergency X [facility] ERT [id number] Univers 16:27:00 22:26:00 CHARITY barbosa [facility] 2021-10-24 2021-10-24 Emergency Reilly Means [facility] 1.2.840. 114 [id number] Univers 16:27:00 22:26:00 Charity Mcallister 350.1.13.10 ity [facility] 4.2.7.2.686 [facility] [id number] [address] 2021-10-23 2021-10-24 Emergency X [facility] ERT [id number] Univers 20:22:00 02:57:00 [facility] 2021-10-23 2021-10-24 Emergency [facility] 1.2.157.476 [id number] Univers 20:22:00 02:57:00 Txaddy Christian GARFIELD 350.1.13.10 ity of [place] 4.2.7.2.686 [facility] [id number] [address] 2021-09-07 2021-09-07 Outpatient R SELF, [facility] [id number] Univers 08:00:00 08:00:00 GADIEL vogel [facility] 2021-09-07 2021-09-07 Outpatient R SELF, [facility] [id number] Univers 08:00:00 08:00:00 GADIEL vogel [facility] 2021-08-21 2021-08-21 Outpatient R EAST, [facility] [id number] Univers 10:45:00 10:45:00 SANTIAGO barbosa [facility] 2021-08-21 2021-08-21 Personnel Worker Santiago Cardenas [id number] Univers 10:45:00 10:45:00 Visit [facility] [id number] ity of [id number] [place] .[id number] Medica l .8 [place] 2021-08-21 2021-08-21 Office Ronald [id number] Univers 08:30:00 09:00:00 Visit Santiago [id number] ity of [id number] [place] .[id number] Medica l .8 [place] 2021-08-21 2021-08-21 Office [place] [place], [facility] 1.2.846.815 4037 8516 Univers 08:30:00 09:00:00 Visit Santiago [facility] 350.1.13.10 i ty of CL[place]ICS 4.[place].2.[place] [id number] [facility] 089 Branch 2021-08-21 2021-08-21 Outpatient R [facility] [id number] Univers 08:30:00 08:30:00 [facility] 2021-08-21 2021-08-21 Travel 1.2.840.1 1.2.382.581 8725 3865 Univers 00:00:00 00:00:00 05370.1.1 350.1.13.10 ity of 3.104.2.7 4.[place].7.3.698 [place] .3.[place] 084.8 Medica l .8 [place] 2021-08-14 2021-08-14 Telephone [place], 1.2.840.9 [id number] 922 [id number] Univers 00:00:00 00:00:00 Santiago 28428.1.1 ity of 3.104.2.7 [place] .3.627430 Medica l .8 [place] 2021-08-13 2021-08-13 Telephone East, 1.2.840.8 [id number] 922 [id number] Univers 00:00:00 00:00:00 Santiago 99294.1.1 ity of 3.104.2.7 [place] .3.027145 Medica l .8 [place] 2021-08-11 2021-08-11 Outpatient R [facility] [id number] Univers 08:00:00 08:00:00 SANTIAGO charlie [facility] 2021-08-05 2021-08-05 Inpatient RAUL Lund WINTER VOGT [id number] [facility] 05:24:00 05:24:00 Mike 31 [facility] 2021-07-20 2021-07-20 Outpatient [facility] [id number] Univers 10:00:00 10:00:00 SANTIAGO barbosa [facility] 2021-07-14 2021-07-14 Office Anajacobo, UTP 6400 1.2.840.114 13 [id number] [place] 08:45:00 09:34:[address] 350.1.13.58 Health 9.2.7.2.686 [id number] 1 2021-07-09 2021-07-09 Telephone Hematpour, UTP 6400 1.2.840.114 [id number] [place] 00:00:00 00:00:[address] 350.1.13.58 Health 9.2.7.2.686 [id number] 1 2021-07-09 2021-07-09 Telephone Maryjanepour, UTP 6400 1.2.840.114 [id number] [place] 00:00:00 00:00:[address] 350.1.13.58 Health 9.2.7.2.686 [id number] 1 2021-07-03 2021-07-03 Outpatient R EAST, [facility] [id number] Univers 08:00:00 08:00:00 SANTIAGO barbosa [facility] 2021-06-17 2021-06-17 In[facility] [id number] [facility] 10:56:00 14:36:[address] 2021-06-15 2021-06-15 Outpatient R SELF, [facility] [id number] Univers 10:15:00 11:07:21 GADIEL macielcharlie rodas [facility] 2021-06-15 2021-06-15 Outpatient R SELF, [facility] [id number] Univers 10:15:00 10:15:00 GADIEL macielcharlie o f [facility] 2021-06-15 2021-06-15 Outpatient R SELF, [facility] [id number] 319 Univers 10:15:00 10:15:00 GADIEL vogel f [facility] 2021-06-15 2021-06-15 Orders Doctor 1.2.840.9 [id number] 775 Univers 00:00:00 00:00:00 Only Unassigned, 61294.1.1 ity of Section 3.104.2.7 [place] .3.699289 Medica l .8 Branch 2021-06-15 2021-06-15 Travel 1.2.840.1 1.2.013.605 9959 7719 Univers 00:00:00 00:00:00 55691.1.1 350.1.13.10 ity of 3.104.2.7 4.2.7.3.698 [place] .3.342944 084.8 Medica l .8 Branch 2021-06-11 2021-06-11 Refill [facility], [facility] 1.2.556.679 6415 9185 Univers 00:00:00 00:00:00 [facility] 350.1.13.10 i ty of [place] 4[place] [id number] [facility] 089 [place] 2021-06-11 2021-06-11 Refill [facility], 1.2.840.4 [id number] 185 Univers 00:00:00 00:00:00 Santiago 86894.1.1 ity of 3.104.2.7 [place] .3.836246 Medica l .8 [place] 2021-06-05 2021-06-05 [facility] R [facility] [id number] Univers 09:00:00 09:00:00 SANTIAGO ity of [facility] 2021-06-02 2021-06-02 Telephone [facility] [place], [facility] 1.2.840.114 90 [id number] Univers 00:00:00 00:00:00 [facility] 350.1.13.10 i ty of CL[place]ICS [place] [id number] [place] 101509 [place] 2021-06-02 2021-06-02 Telephone [facility], 1.2.840.4 [id number] 903 [id number] Univers 00:00:00 00:00:00 Santiago 84420.1.1 ity of 3.104.2.7 [place] .3.088185 Medica l .8 [place] 2021-05-29 2021-05-29 Telephone East, 1.2.840.1 [id number] 902 [id number] Univers 00:00:00 00:00:00 Santiago 53589.1.1 ity of 3.104.2.7 [place] .3.988999 Medica l .8 Branch 2021-05-29 2021-05-29 Telephone East, 1.2.840.6 [id number] 902 47398 Univers 00:00:00 00:00:00 Santiago 94947.1.1 ity of 3.104.2.7 [place] .3.609461 Medica l .8 [place] 2021-05-25 2021-05-25 Outpatient R RODO, [facility] [id number] Univers 08:00:00 08:00:00 GADIEL barbosa o f [facility] 2021-04-29 2021-04-29 Outpatient R LALA, [facility] [id number] Univers 08:00:00 08:00:00 NIKOLAI barbosa [facility] 2021-04-28 2021-04-28 Telephone Hematpoliz, UTP 6400 1.2.840.114 [id number] [place] 00:00:00 00:00:[address] 350.1.13.58 Health 9.2.7.2.686 [id number] 1 2021-04-28 2021-04-28 Telephone Jeredimasaleshia, 1.2.840.2 [id number] 21 [id number] Methodi 00:00:00 00:00:[address] 3.430.2.7 Hospit a .3.664339 l .8 2021-04-28 2021-04-28 Telephone Chihara, 1.2.840.8 [id number] 21 [id number] Methodi 00:00:00 00:00:[address] 3.430.2.7 Hospit a .3.567077 l .8 2021-03-31 2021-03-31 Orders Carol Ann, 1.2.840.1 [id number] 21 [id number] Methodi 00:00:00 00:00:00 Only Sarai Lieberman 94218.1.1 979 s t 3.430.2.7 Hospit a .3.122178 l .8 2021-03-30 2021-03-30 Outpatient R RODO, [facility] [id number] Univers 08:45:00 08:45:00 GADIEL itcharlie o f [facility] 2021-03-24 2021-03-24 Telephone Jailyn, 1.2.840.3 [id number] 21 [id number] Methodi 00:00:00 00:00:[address] 3.430.2.7 Hospit a .3.825588 l .8 2021-02-13 2021-02-13 Telephone Ronald, 1.2.840.2 [id number] 876 63515 Univers 00:00:00 00:00:00 Santiago 21928.1.1 ity of 3.104.2.7 [place] .3.917334 Medica l .8 [place] 2021-01-28 2021-01-28 Outpatient R LALA, [facility] [id number] Univers 08:45:00 09:37:00 NIKOLAI barbosa of [facility] 2021-01-28 2021-01-28 Travel 1.2.840.1 1.2.514.609 2071 9777 Univers 00:00:00 00:00:00 00484.1.1 350.1.13.10 ity of 3.104.2.7 4.2.7.3.698 [place] .3.291028 084.8 Medica l .8 [place] 2021-01-19 2021-01-19 Telephone Pelletier, 1.2.840.1 [id number] 2100 956656 Methodi 00:00:00 00:00:[address] 3.430.2.7 Hospit a .3.951588 l .8 2021-01-04 2021-01-04 Letter Shelia, 1.2.840.2 [id number] 15620 696 Univers 00:00:00 00:00:00 (Out) Dagoberto Peterson 23320.1.1 ity of 3.104.2.7 [place] .3.675375 Medica l .8 Branch 2021-01-04 2021-01-04 Dmitry Bass, 1.2.840.2 [id number] 696 Univers 00:00:00 00:00:00 (Out) Dagoberto H 01703.1.1 ity of 3.104.2.7 [place] .3.116668 Medica l .8 Branch 2021-01-03 2021-01-03 Dmitry Bass, 1.2.840.0 [id number] 95675 790 Univers 00:00:00 00:00:00 (Out) Dagoberto H 07314.1.1 ity of 3.104.2.7 [place] .3.196806 Medica l .8 Branch 2021-01-03 2021-01-03 Dmitry Bass, 1.2.840.8 [id number] 790 Univers 00:00:00 00:00:00 (Out) Dagoberto H 33115.1.1 ity of 3.104.2.7 [place] .3.547330 Medica l .8 [place] 2021-01-02 2021-01-02 Outpatient R [facility] [id number] 786 Univers 13:40:00 13:40:00 ity of [facility] 2021-01-02 2021-01-02 Laboratory Cuba Franks 1.2.840.1 [id number] [id number] Univers 12:14:13 12:57:34 Only Lab, [facility] 06329.1.1 ity of 3.104.2.7 [place] .3.737070 Medica l .8 Branch 2021-01-02 2021-01-02 Laboratory Cuba Fransk 1.2.840.8 [id number] [id number] Univers 12:14:13 12:57:34 Only Lab, [facility] 31457.1.1 ity of 3.104.2.7 [place] .3.227382 Medica l .8 Branch 2021-01-02 2021-01-02 Travel 1.2.840.1 1.2.012.534 9101 2306 Univers 00:00:00 00:00:00 90530.1.1 350.1.13.10 ity of 3.104.2.7 4.2.7.3.698 [place] .3.366868 084.8 Medica l .8 Branch 2021-01-02 2021-01-02 Letter Doctor 1.2.840.5 [id number] 62171 948 Univers 00:00:00 00:00:00 (Out) Unassigned, 67626.1.1 ity of Section 3.104.2.7 [place] .3.218867 Medica l .8 Branch 2021-01-02 2021-01-02 Letter Doctor 1.2.840.2 [id number] 53357 946 Univers 00:00:00 00:00:00 (Out) Unassigned, 03583.1.1 ity of Section 3.104.2.7 [place] .3.903723 Medica l .8 Branch 2021-01-02 2021-01-02 Travel 1.2.840.1 1.2.406.034 9891 2306 Univers 00:00:00 00:00:00 53117.1.1 350.1.13.10 ity of 3.104.2.7 4.2.7.3.698 [place] .3.843058 084.8 Medica l .8 Branch 2021-01-02 2021-01-02 Letter Doctor 1.2.840.4 [id number] 67123 948 Univers 00:00:00 00:00:00 (Out) Unassigned, 64848.1.1 ity of Section 3.104.2.7 [place] .3.774208 Medica l .8 Branch 2021-01-02 2021-01-02 Letter Doctor 1.2.840.3 [id number] 90807 946 Univers 00:00:00 00:00:00 (Out) Unassigned, 18899.1.1 ity of Section 3.104.2.7 [place] .3.548284 Medica l .8 Branch 2020-12-22 2020-12-22 Telephone Devin, 1.2.840.7 [id number] 862 78755 [facility] 00:00:00 00:00:00 Rossandynda R 69153.1.1 i ty of 3.104.2.7 [place] .3.979003 Medica l .8 Branch 2020-12-22 2020-12-22 Telephone Devin, 1.2.840.4 [id number] 862 58052 [facility] 00:00:00 00:00:00 Rossandynda R 98034.1.1 i ty of 3.104.2.7 [place] .3.563258 Medica l .8 [place] 2020-12-12 2020-12-12 Office Hematpour, UTP 6400 1.2.840.114 12 [id number] [place] 07:42:02 08:18:[address] 350.1.13.58 Health 9.2.7.2.686 [id number] 1 2020-12-12 2020-12-12 Office Hematpour, UTP 6400 1.2.840.114 12 [id number] 07:42:02 08:18:[address] 350.1.13.58 9.2.7.2.686 045.4663145 1 2020-12-09 2020-12-09 Telephone Carol Ann, 1.2.840.1 [id number] Methodi 00:00:00 00:00:00 Sarai CorbinChelsie 31053.1.1 316 s t 3.430.2.7 Hospit a .3.574808 l .8 2020-12-08 2020-12-08 [facility], 1.2.840.1 [id number] 2100 744462 Methodi 12:35:54 23:59:00 Encounter Ray 52581.1.[address] 3.430.2.7 Hospit a .3.135934 l .8 2020-12-08 2020-12-08 [facility], 1.2.840.1 [id number] 88914 90441 Methodi 17:25:00 17:30:[address] 3.430.2.7 Hospit a .3.360331 l .8 2020-12-08 2020-12-08 Office Jailyn, 1.2.840.1 [id number] 28246 51037 Methodi 10:30:00 11:39:56 Visit Ray 42432.1.[address] 3.430.2.7 Hospit a .3.850140 l .8 2020-12-08 2020-12-08 Travel 1.2.840.1 1.2.572.867 4453 032020 Methodi 00:00:00 00:00:[address] 3.430.2.7 0.2.7.3.698 Ho spita .3.942216 084.8 l .8 2020-12-02 2020-12-02 Personnel Worker Santiago Cardenas 1.2.840.1 [id number] Univers 10:20:06 10:36:19 Visit [facility] 95036.1.1 ity of 3.104.2.7 [place] .3.690960 Medica l .8 Branch 2020-12-02 2020-12-02 Personnel Worker Santiago Cardenas 1.2.840.1 [id number] [facility] 10:20:06 10:36:19 Visit c-Lab 68844.1.1 ity of 3.104.2.7 [place] .3.727845 Medica l .8 Branch 2020-12-02 2020-12-02 Personnel Worker [facility] 1.2.840.114 8 [id number] 10:20:06 10:36:19 Visit [facility] 350.1.13.10 CLINICS 4.2.7.2.686 278.8200473 316 2020-12-02 2020-12-02 Office Qi Cardenas2.840.9 [id number] 27875 528 Univers 08:31:37 09:01:37 Visit Santiago 87969.1.1 ity of 3.104.2.7 [place] .3.666452 Medica l .8 Branch 2020-12-02 2020-12-02 Outpatient R RONALD [facility] [id number] Univers 09:00:00 09:00:00 SANTIAGO ity of [facility] 2020-11-25 2020-11-25 Office Devin, 1.2.840.1 [id number] 29562 865 Univers 11:06:30 11:58:14 Visit Robbi Hairston 11499.1.1 i ty of 3.104.2.7 [place] .3.369390 Medica l .8 [place] 2020-11-25 2020-11-25 Office Devin, 1.2.840.9 [id number] 82145 865 Univers 11:06:30 11:58:14 Visit Robbi R 25301.1.1 i ty of 3.104.2.7 [place] .3.608099 Medica l .8 [place] 2020-11-25 2020-11-25 Office Devin, [facility] 1.2.840.114 [id number] 65 11:06:30 11:58:14 Visit Devinaleshia Hairston 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 350.1.13.10 [facility] 4.2.7.2.686 MATERNAL [id number] & CHILD [address] [place] [address] 2020-11-25 2020-11-25 Outpatient R [facility] [id number] Univers 11:00:00 11:00:00 ity of [facility] 2020-11-25 2020-11-25 Telephone Devin, 1.2.840.4 [id number] 855 [id number] Univers 00:00:00 00:00:00 Robbi Hairston 85780.1.1 i ty of 3.104.2.7 [place] .3.688560 Medica l .8 [place] 2020-11-25 2020-11-25 [facility], 1.2.840.8 [id number] 35031 592 Univers 00:00:00 00:00:00 Santiago 05581.1.1 ity of 3.104.2.7 [place] .3.966720 Medica l .8 [place] 2020-11-25 2020-11-25 Travel 1.2.840.1 1.2.164.815 5228 0247 Univers 00:00:00 00:00:00 60069.1.1 350.1.13.10 ity of 3.104.2.7 4.2.7.3.698 [place] .3.920188 084.8 Medica l .8 Branch 2020-11-25 2020-11-25 Orders Doctor 1.2.840.0 [id number] 064 Univers 00:00:00 00:00:00 Only Unassigned, 75391.1.1 ity of Section 3.104.2.7 [place] .3.700611 Medica l .8 Branch 2020-11-25 2020-11-25 Telephone Beltran, 1.2.840.5 [id number] 855 57114 Univers 00:00:00 00:00:00 Robbi Hairston 38235.1.1 i ty of 3.104.2.7 [place] .3.157780 Medica l .8 Branch 2020-11-25 2020-11-25 Refill [place], 1.2.840.4 [id number] 82247 592 Univers 00:00:00 00:00:00 Santiago 92102.1.1 ity of 3.104.2.7 [place] .3.685443 Medica l .8 Branch 2020-11-25 2020-11-25 Travel 1.2.840.1 1.2.083.839 8764 0247 Univers 00:00:00 00:00:00 62437.1.1 350.1.13.10 ity of 3.104.2.7 4.2.7.3.698 [place] .3.479189 084.8 Medica l .8 Branch 2020-11-25 2020-11-25 Orders Doctor 1.2.840.3 [id number] 45457 064 Univers 00:00:00 00:00:00 Only Unassigned, 20841.1.1 ity of Section 3.104.2.7 [place] .3.036332 Medica l .8 Branch 2020-11-25 2020-11-25 Refill [facility], [facility] 1.2.504.940 1904 4592 00:00:00 00:00:00 [facility] 350.1.13.10 CLINICS 4.2.7.2.686 [id number] 089 2020-11-25 2020-11-25 [facility] 1.2.521.003 2551 0821 00:00:00 00:00:00 Robbi 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 350.1.13.10 [facility] 4.2.7.2.686 MATERNAL 546.0570880 & CHILD [address] [place] [address] 2020-11-14 2020-11-14 Abstract Clark, 1.2.840.1 [id number] 53583 21808 Methodi 00:00:00 00:00:[address] 3.430.2.7 Hospit a .3.012184 l .8 2020-11-14 2020-11-14 Telephone Clark, 1.2.840.1 [id number] 2100 957068 Methodi 00:00:00 00:00:[address] 3.430.2.7 Hospit a .3.498668 l .8 2020-11-12 2020-11-12 Outpatient R [facility] [id number] 323 Univers 08:30:00 08:30:00 SANTIAGO barbosa [facility] 2020-11-07 2020-11-07 Telephone Agustina Ortiz 6400 1.2.840.11 4 [id number] [place] 00:00:00 00:00:[address] 350.1.13.58 Health 9.2.7.2.686 690.9840087 1 2020-11-07 2020-11-07 Telephone KIMBERLEY Ortiz 6400 1.2.840.114 124 [id number] 00:00:00 00:00:[address] 350.1.13.58 9.2.7.2.686 [id number] 1 2020-10-31 2020-10-31 Office KIMBERLEY De Souza 6400 1.2.840.114 12 [id number] [place] 07:54:00 09:45:[address] 350.1.13.58 Health 9.2.7.2.686 [id number] 1 2020-10-30 2020-10-30 Abstract Rody Maguire UTP 6400 1.2.840.1 14 [id number] [place] 00:00:00 00:00:[address] 350.1.13.58 Health 9.2.7.2.686 [id number] 1 2020-10-29 2020-10-29 Refill [place], 1.2.840.0 [id number] 60236 400 Univers 00:00:00 00:00:00 Santiago 93688.1.1 ity of 3.104.2.7 [place] .3.903121 Medica l .8 [place] 2020-10-29 2020-10-29 Refill [place], 1.2.840.8 [id number] 85127 400 Univers 00:00:00 00:00:00 Santiago 08253.1.1 ity of 3.104.2.7 [place] .3.563671 Medica l .8 [place] 2020-10-27 2020-10-27 Telephone Chidimasa, 1.2.840.9 [id number] 21 [id number] Methodi 00:00:00 00:00:[address] 3.430.2.7 Hospit a .3.322352 l .8 2020-10-24 2020-10-24 Telephone Rodas, 1.2.840.1 [id number] 2100 631396 Methodi 00:00:00 00:00:[address] 3.430.2.7 Hospit a .3.255062 l .8 2020-10-22 2020-10-22 Outpatient R SELF, [facility] [id number] 868 Univers 13:00:00 13:00:00 GADIEL rodas [facility] 2020-10-22 2020-10-22 Travel 1.2.840.1 1.2.623.342 4077 3839 Univers 00:00:00 00:00:00 65719.1.1 350.1.13.10 ity of 3.104.2.7 4.2.7.3.698 [place] .3.369228 084.8 Medica l .8 Branch 2020-10-22 2020-10-22 Travel 1.2.840.1 1.2.236.864 3612 3839 [facility] 00:00:00 00:00:00 32957.1.1 350.1.13.10 ity of 3.104.2.7 4.2.7.3.698 [place] .3.971832 084.8 Medica l .8 Branch 2020-10-13 2020-10-13 Outpatient R SELF, [facility] [id number] Univers 08:45:00 08:45:00 GADIEL barbosa o f [facility] 2020-10-06 2020-10-12 Telemedici [facility], 1.2.840.1 [id number] Methodi 15:30:00 00:08:46 ne Ray 04690.1.[address] 3.430.2.7 Hospit a .3.360823 l .8 2020-09-30 2020-09-30 [facility], 1.2.840.4 [id number] Methodi 00:00:00 00:00:[address] 3.430.2.7 Hospit a .3.521732 l .8 2020-09-21 2020-09-21 Travel 1.2.840.1 1.2.260.428 7354 393971 Methodi 00:00:00 00:00:[address] 3.430.2.7 0.2.7.3.698 Ho spita .3.936913 084.8 l .8 2020-09-06 2020-09-06 [facility] 1.2.840.1 [id number] 75653 36661 Methodi 17:42:30 23:59:[address] 3.430.2.7 Hospit a .3.182854 l .8 2020-09-06 2020-09-06 [facility], 1.2.840.1 [id number] 2099 431192 Methodi 16:50:00 17:41:00 Encounter Ray 54539.1.[address] 3.430.2.7 Hospit a .3.303477 l .8 2020-09-05 2020-09-05 Hospital [facility], 1.2.840.1 [id number] 2099 332187 Methodi 09:17:00 19:45:00 Encounter Ray [address]99.1.[address] 3.430.2.7 Hospit a .3.102060 l .8 2020-09-05 2020-09-05 Surgery [facility], 1.2.840.1 [id number] 28588 83963 Methodi 11:30:00 13:15:[address] 3.430.2.7 Hospit a .3.525095 l .8 2020-09-05 2020-09-05 Anesthesia Remigio, 1.2.840.1 [id number] 354 [id number] Methodi 11:27:00 12:20:00 Event Johnathanthi 83697.1.1 243 s t V. 3.430.2.7 Hospit a .3.273449 l .8 2020-09-05 2020-09-05 Travel 1.2.840.1 1.2.499.477 8746 616164 Methodi 00:00:00 00:00:[address] 3.430.2.7 0.2.7.3.698 Ho spita .3.771365 084.8 l .8 2020-09-04 2020-09-04 Telephone Meisenbach, 1.2.840.1 [id number] Methodi 00:00:00 00:00:00 Sarai M. 10895.1.1 762 s t 3.430.2.7 Hospit a .3.457140 l .8 2020-09-02 2020-09-02 Telephone Meisenbach, 1.2.840.5 [id number] Methodi 00:00:00 00:00:00 Sarai M. 19525.1.1 344 s t 3.430.2.7 Hospit a .3.996556 l .8 2020-08-29 2020-08-30 Bedded [facility] [id number] [facility] 10:20:00 14:10:00 Outpatient r [place] 00 [facility] 2020-08-29 2020-08-30 Outpatient HEMATPOUR, [facility] CAR 7500 [facility] 05:20:00 09:10:00 BEVERLY 2020-08-06 2020-08-06 Office [place], 1.2.840.7 [id number] 416 Univers 08:03:23 09:17:49 Visit Santiago 60188.1.1 ity of 3.104.2.7 [place] .3.858598 Medica l .8 [place] 2020-08-06 2020-08-06 Outpatient R [facility] [id number] Univers 08:30:00 08:30:00 SANTIAGO barbosa of [facility] 2020-07-14 2020-07-14 Outpatient R [facility] [id number] Univers 09:30:00 09:30:00 GADIEL barbosa o clark [facility] 2020-07-14 2020-07-14 Travel 1.2.840.1 1.2.854.031 0818 2575 Univers 00:00:00 00:00:00 01669.1.1 350.1.13.10 ity of 3.104.2.7 4.2.7.3.698 [place] .3.426504 084.8 Medica l .8 [place] 2020-07-14 2020-07-14 Orders Doctor 1.2.840.0 [id number] 68876 309 Univers 00:00:00 00:00:00 Only Unassigned, 47829.1.1 ity of Section 3.104.2.7 [place] .3.517435 Medica l .8 [place] 2020-06-16 2020-06-16 [id number] Univers 08:00:00 08:00:00 GADIEL barbosa o f [facility] 2020-06-06 2020-06-06 Telephone [place], 1.2.840.8 [id number] Univers 00:00:00 00:00:00 [place] 34882.1.1 ity of 3.104.2.7 [place] .3.571141 Medica l .8 [place] 2020-06-04 2020-06-04 Personnel Worker [place] Cardenas 1.2.840.1 [id number] Univers 09:31:58 09:40:12 Visit [facility] 34302.1.1 ity of 3.104.2.7 [place] .3.688357 Medica l .8 [place] 2020-06-04 2020-06-04 Office FRANCO Cardenas 1.2.327.844 [id number] Univers 08:13:41 09:28:25 Visit Santiago [facility] 350.1.13.10 i ty of CLINICS 4.2.7.2.686 Richi bach [id number] [facility] porfirio 089 [place] 2020-06-04 2020-06-04 Outpatient R [facility] [id number] Univers 08:30:00 08:30:00 [place] ity of [facility] 2020-06-04 2020-06-04 Orders Doctor 1.2.840.1 [id number] Univers 00:00:00 00:00:00 Only Unassigned, 94376.1.1 ity of [place] 3.104.2.7 [place] .3.957286 Medica l .8 [place] 2020-05-19 2020-05-19 Telephone [place], 1.2.840.7 [id number] Univers 00:00:00 00:00:00 [place] 14639.1.1 ity of 3.104.2.7 [place] .3.602512 Medica l .8 [place] 2020-04-24 2020-04-24 Telephone [place], 1.2.840.9 [id number] Univers 00:00:00 00:00:00 [place] 04087.1.1 ity of 3.104.2.7 [place] .3.960090 Medica l .8 [place] 2020-04-14 2020-04-14 Outpatient R [facility] [id number] Univers 09:00:00 09:00:00 [place] ity [facility] 2020-04-14 2020-04-14 Telephone [place], 1.2.840.2 [id number] Univers 00:00:00 00:00:00 [place] 26403.1.1 ity of 3.104.2.7 [place] .3.466906 Medica l .8 [place] 2020-03-31 2020-03-31 Outpatient R [facility] [id number] Univers 08:30:00 08:30:00 [place] ity [facility] 2020-03-03 2020-03-03 Outpatient R [facility], [facility] [id number] Univers 08:00:00 08:00:00 GADIEL rodas [facility] 2020-03-03 2020-03-03 Outpatient R [facility], [facility] [id number] Univers 08:00:00 08:00:00 GADIELKEI rodas [facility] 2020-03-03 2020-03-03 Travel 1.2.840.1 1.2.816.228 [id number] Univers 00:00:00 00:00:00 69590.1.1 350.1.13.10 ity of 3.104.2.[place]698 [place] 084.8 Medica l .8 [place] 2020-02-06 2020-02-06 Telephone [place], 1.2.840.5 [id number] Univers 00:00:00 00:00:00 [place] 05492.1.1 ity of 3.104.2.7 [place] .3.963092 Medica l .8 [place] 2020-01-26 2020-01-26 Emergency Caridad, 1.2.840.8 [id number] Univers 10:03:00 13:05:00 Cynise 33319.1.1 ity of 3.104.2.7 [place] .3.260505 Medica l .8 [place] 2020-01-26 2020-01-26 Travel 1.2.840.1 1.2.338.543 [id number] Univers 00:00:00 00:00:00 19804.1.1 350.1.13.10 ity of 3.104.2.[place].698 [place].97[place] 084.8 Medica l .8 [place] 2020-01-25 2020-01-25 Outpatient R [facility] [id number] Univers 08:30:00 08:30:00 [place] ity [facility] 2020-01-25 2020-01-25 Telemedici [place], 1.2.840.7 [id number] Univers 07:36:49 08:06:49 ne Visit [place] 95072.1.1 ity of 3.104.2.7 [place] .3.386162 Medica l .8 [place] 2020-01-16 2020-01-16 Outpatient R [facility] [id number] Univers 08:00:00 08:00:00 [place] ity [facility] 2020-01-16 2020-01-16 Telephone [place], 1.2.840.4 [id number] Univers 00:00:00 00:00:00 [place] 95633.1.1 ity of 3.104.2.7 [place] .3.592026 Medica l .8 [place] 2020-01-14 2020-01-14 Outpatient R [facility], [facility] [id number] Univers 08:00:00 08:00:00 GADIEL barbosa o f [facility] 2019-12-31 2019-12-31 Outpatient R [facility], [facility] [id number] Univers 08:45:00 08:45:00 GADIEL maciely o f [facility] 2019-10-17 2019-10-17 Outpatient R [facility] [id number] Univers 08:30:00 08:30:00 [place] ity [facility] 2019-10-12 2019-10-12 Outpatient R [facility] [id number] Univers 13:00:00 13:00:00 [place] ity [facility] 2019-10-12 2019-10-12 Telemedici [place], 1.2.840.8 [id number] Univers 07:38:30 08:08:30 ne Visit [place] 25286.1.1 ity of 3.104.2.7 [place] .3.830935 Medica l .8 [place] 2019-10-08 2019-10-08 Outpatient R [facility], [facility] [id number] Univers 10:15:00 10:15:00 GADIEL ity o f [facility] 2019-10-03 2019-10-03 Case Xiao, 1.2.840.8 [id number] Univers 00:00:00 00:00:00 Management Michael Corbin 82466.1.1 i ty of 3.104.2.7 [place] .3.422495 Medica l .8 [place] 2019-09-27 2019-09-27 Telephone [place], 1.2.840.5 [id number] Univers 00:00:00 00:00:00 [place] 65575.1.1 ity of 3.104.2.7 [place] .3.663966 Medica l .8 [place] 2019-09-04 2019-09-04 Refill [place], 1.2.840.2 [id number] Univers 00:00:00 00:00:00 [place] 88248.1.1 ity of 3.104.2.7 [place] .3.153835 Medica l .8 [place] 2019-07-24 2019-07-24 [facility] [id number] Univers 08:30:00 08:30:00 [place] ity [facility] 2019-07-17 2019-07-17 Outpatient R [facility] [id number] Univers 10:00:00 10:00:00 [place] ity of [facility] 2019-06-15 2019-06-15 Telephone [place], 1.2.840.0 [id number] Univers 00:00:00 00:00:00 [place] 91624.1.1 ity of 3.104.2.7 [place] .3.140977 Medica l .8 [place] 2019-06-13 2019-06-13 Tele[facility], [facility] 1.2.840[facility]5 [id number] Univers 00:00:00 00:00:00 Health 05049.1.1 [place].7 [place] .3.403933 Med[facility] .8 [place] 2019-05-10 2019-05-10 Refill Ronald, 1.2.840.7 [id number] Univers 00:00:00 00:00:00 [place] 55076.1.1 ity of 3.104.2.7 [place] .3.556844 Medica l .8 Branch 2019-05-09 2019-05-09 Refill Ronald, 1.2.840.8 [id number] Univers 00:00:00 00:00:00 [place] 95930.1.1 ity of 3.104.2.7 [place] .3.091385 Medica l .8 Branch 2019-04-30 2019-04-30 Outpatient R [facility] [id number] Univers 10:15:00 10:33:05 GADIEL barbosa o f [facility] 2019-04-18 2019-04-18 Personnel Worker Ronald [place] 1.2.840.1 [id number] Univers 10:00:39 10:44:31 Visit [facility] 94180.1.1 ity of 3.104.2.7 [place] .3.005209 Medica l .8 Branch 2019-04-18 2019-04-18 Outpatient R [facility] [id number] Univers 10:00:00 10:44:31 [place] ity of [facility] 2019-04-18 2019-04-18 Office Ronald, 1.2.840.8 [id number] Univers 08:27:44 09:53:27 Visit [place] 58950.1.1 ity of 3.104.2.7 [place] .3.102649 Medica l .8 Branch 2019-04-18 2019-04-18 Orders Doctor 1.2.840.0 [id number] Univers 00:00:00 00:00:00 Only Unassigned, 69436.1.1 ity of Section 3.104.2.7 [place] .3.372993 Medica l .8 Branch 2019-04-11 2019-04-11 Refill Ronald, 1.2.840.8 [id number] Univers 00:00:00 00:00:00 [place] 38647.1.1 ity of 3.104.2.7 [place] .3.497684 Medica l .8 Branch 2019-04-09 2019-04-09 Refill [place], 1.2.840.8 [id number] Univers 00:00:00 00:00:00 [place] 83271.1.1 ity of 3.104.2.7 [place] .3.549711 Medica l .8 [place] 2019-04-03 2019-04-03 Tele[facility] 1.2.840.1 [id number] Univers 00:00:00 00:00:00 Health 74690.1.1 [place] .3.018836 Medica l .8 [place] 2019-03-27 2019-03-27 Telephone Self, 1.2.840.1 [id number] Univers 00:00:00 00:00:00 Gadiel 41016.1.1 ity of 3.104.2.7 [place] .3.335247 Medica l .8 Branch 2019-01-17 2019-01-17 Office [place], 1.2.840.8 [id number] Univers 07:37:21 10:32:51 Visit [place] 69559.1.1 ity of 3.104.2.7 [place] .3.454963 Medica l .8 Branch 2019-01-04 2019-01-12 Office Eveline Hansen 1.2.840.8 [id number] Univers 11:19:32 11:08:05 Visit Mariela 57513.1.1 ity of 3.104.2.7 [place] .3.812674 Medica l .8 Branch 2019-01-10 2019-01-10 Telephone Stanislav, 1.2.840.4 [id number] Univers 00:00:00 00:00:00 Eladio Inman 69143.1.1 ity of 3.104.2.7 [place] .3.475215 Medica l .[facility] [place] 2018-12-18 2018-12-18 Office Geraldine, 1.2.840.2 [id number] Univers 08:48:45 09:13:43 Visit Leyda 54389.1.1 it y of 3.104.2.7 [place] .3.690192 Medica l .8 [place] 2018-10-30 2018-10-30 Telephone [place], 1.2.840.6 [id number] Univers 00:00:00 00:00:00 [place] 43632.1.1 ity of 3.104.2.7 [place] .3.216565 Medica l .8 [place] 2018-10-23 2018-10-23 Orders Doctor 1.2.840.6 [id number] Univers 00:00:00 00:00:00 Only Unassigned, 94741.1.1 ity of Section 3.104.2.7 [place] .3.181523 Med[facility] l .8 [place] 2018-10-23 2018-10-23 Nurse Selvin, 1.2.840.2 [id number] Univers 00:00:00 00:00:00 Triage Stefanie 48849.1.1 ity of 3.104.2.7 [place] .3.536752 Med[facility] l .[facility] [place] 2018-10-23 2018-10-23 Telephone Self, 1.2.840.3 [id number] Univers 00:00:00 00:00:00 Gadiel 37229.1.1 ity of 3.104.2.7 [place] .3.566289 Medica l .8 [place] 2018-10-20 2018-10-20 Telephone Self, 1.2.840.7 [id number] Univers 00:00:00 00:00:00 Gadiel 01603.1.1 ity of 3.104.2.7 [place] .3.412532 Med[facility] .[facility] [place] Results Test Description Test Time Test Comments Results Result Comments Source BLOOD CULTURE SCREEN 2022-02-16 06:01:07 Test Item Value Reference Range Interpretation Comme nts Blood Culture-Aerobic (test No organisms isolated No growth Previous preliminary code = 86767-0) verified res ult was Culture In Prog [...] No growth Previous preliminary (test code = 13972-9) verifi ed result was Culture In Prog [...] CDT Lab Interpretation (test Normal code = 20033-8) [facility] CULTURE [id number] 06:01:07 Test Item Value Reference Range Interpretation Comments Blood Culture-Aerobic No organisms No growth Previo us (test code = 49061-1) isolated prelim inary verified result was Culture In Progress on 02/11/2022 at 04 01 CDTPrevious preliminary verified result was No growth a t 24 hours on 02/12/2022 at 01 01 CDTPrevious preliminary verified result was No growth a t 48 hours on 02/13/2022 at 01 CDTPrevious preliminary verified result was No growth a t 72 hours on 02/14/2022 at 01 CDT Blood No organisms No growth Previous Culture-Anaerobic isolated preliminar y (test code = 53929-2) verifi ed result was Culture In Progress [...] CDT Lab Interpretation Normal (test code = 57339-7) [facility] CULTURE [id number] 06:01:07 Test Item Value Reference Range Interpretation Comments Blood Culture-Aerobic No organisms No growth Previo us (test code = 14556-8) isolated prelim inary verified result was Culture [...] Culture-Anaerobic isolated preliminar y (test code = 12788-7) verifi ed result was Culture In Progress on 02/11/2022 at 04 01 CDTPrevious preliminary verified result was No growth a t 24 hours on 02/12/2022 at 05 23 CDTPrevious preliminary verified result was No growth a t 48 hours on 02/13/2022 at 05 23 CDTPrevious preliminary verified result was No growth a t 72 hours on 02/14/2022 at 01 01 CDT Lab Interpretation Normal (test code = 26047-5) [id number] 10:49:10 Test Item Value Reference Range Interpretation Comments NT-proBNP (test code 2660 pg/mL See_Comment H [Autom ated = 9549343346) message] The system which generated this result transmitted reference range : <=125. The reference range was not used to interpret this result as normal/abnormal . KYLE (test code = KYLE) Biotin has been reported to cause a negative bias, interpret results relative to patient's use of biotin. Lab Interpretation Abnormal (test code = 65910-4) [facility] [place] [facility] [id number] 10:49:10 Test Item Value Reference Range Interpretation Comments NT-proBNP (test code 2660 pg/mL See_Comment H [Autom ated = 9491065863) message] The system which generated this result transmitted reference range : <=125. The reference range was not used to interpret this result as normal/abnormal . KYLE (test code = KYLE) Biotin has been reported to cause a negative bias, interpret results relative to patient's use of biotin. Lab Interpretation Abnormal (test code = 19018-2) [facility] [place] METABOLIC PANEL (NA, K, CL, CO2, GLUCOSE, BUN, CREATININE, CA)2022-02-15 10:44:07 Test Item Value Reference Range Interpretation Comments NA (test code = 134 mmol/L 135-145 L 9833853734) K (test code = 3.2 mmol/L 3.5-5 L 4756104331) CL (test code = 98 mmol/L 98-108 0066845014) CO2 TOTAL (test code = 27 mmol/L 23-31 6983042109) AGAP (test code = 2-16 8666224993) BUN (test code = 19 mg/dL 7-23 6299668659) GLUCOSE (test code = 102 mg/dL 70-110 4216293753) CREATININE (test code = 0.95 mg/dL 0.5-1.04 6371964562) CALCIUM (test code = 8.5 mg/dL 8.6-10.6 L 4805847252) eGFR (test code = mL/min/1.73m2 1711871647) KYLE (test code = KYLE) Association of [...] tests). Lab Interpretation Abnormal (test code = 48515-5) [facility] Test Item Value Reference Range Interpretation Comments MAGNESIUM (test code = 1972286364) 1.8 mg/dL 1.7-2.4 Lab Interpretation (test code = Normal 46868-4) [facility] 10:44:07 Test Item Value Reference Range Interpretation Comments MAGNESIUM (test code = 3176312530) 1.8 mg/dL 1.7-2.4 Lab Interpretation (test code = Normal 83001-8) [facility] [place] METABOLIC PANEL (NA, K, CL, CO2, GLUCOSE, BUN, CREATININE, CA)2022-02-15 10:44:07 Test Item Value Reference Range Interpretation Comments NA (test code = 134 mmol/L 135-145 L 9353838615) K (test code = 3.2 mmol/L 3.5-5.0 L 7847515651) CL (test code = 98 mmol/L 98-108 2159808859) CO2 TOTAL (test code = 27 mmol/L 23-31 0532554754) AGAP (test code = 2-16 9933938286) BUN (test code = 19 mg/dL 7-23 3988959519) GLUCOSE (test code = 102 mg/dL 70-110 7235817087) CREATININE (test code = 0.95 mg/dL 0.50-1.04 9746344539) CALCIUM (test code = 8.5 mg/dL 8.6-10.6 L 7344977284) eGFR (test code = mL/min/1.73m2 8295248468) KYLE (test code = KYLE) Association of [...] tests). Lab Interpretation Abnormal (test code = 68364-4) [facility] WITH [id number] 10:12:06 Test Item Value Reference Range Interpretation [...] RDW-SD (test code = 47.8 fL 39-49.9 97752-3) RDW-CV (test code = 15.2 % 12-15.5 788-0) PLT (test code = See_Comment L [Automated 777-3) message] The sy stem which generated this result transmitted reference range : 166 - 358 10*3/ ?L. The reference r abbey was not used to interpret this result as normal/abnormal . MPV (test code = 8.9 fL 9.5-12.9 L 94882-3) NRBC/100 WBC (test See_Comment [Automat ed code = 6945183903) message] The system which generated this result transmitted reference range : 0.0 - 10.0 /100 WBCs. The refer ence range was not u sed to interpret th is result as normal/abnormal . NRBC x10^3 (test code See_Comment [Auto mated = 9421257288) message] The s ystem which generated this result transmitted reference range : 10*3/?L. The reference range was not used to interpret this result as normal/abnormal . GRAN MAT (NEUT) % 65.9 % (test code = 770-8) IMM GRAN % (test code 0.30 % = 7659393953) LYMPH % (test code = 21.0 % 736-9) MONO % (test code = 10.1 % 5905-5) EOS % (test code = 2.4 % 713-8) BASO % (test code = 0.3 % 706-2) GRAN MAT x10^3(ANC) 2.49 10*3/uL 1.88-7.09 (test code = 5420974133) IMM GRAN x10^3 (test 0-0.06 code = 6667254349) LYMPH x10^3 (test code 0.79 10*3/uL 1.32-3.29 L = 731-0) MONO x10^3 (test code 0.38 10*3/uL 0.33-0.92 = 742-7) EOS x10^3 (test code = 0.09 10*3/uL 0.03-0.39 711-2) BASO x10^3 (test code 0.01-0.07 = 704-7) Lab Interpretation Abnormal (test code = 54352-1) [facility] WITH [id number] 10:12:06 Test Item Value Reference Range Interpretation [...] RDW-SD (test code = 47.8 fL 39.0-49.9 62962-9) RDW-CV (test code = 15.2 % 12.0-15.5 788-0) PLT (test code = See_Comment L [Automated 777-3) message] The sy stem which generated this result transmitted reference range : 166 - 358 10*3/ ?L. The reference r abbey was not used to interpret this result as normal/abnormal . MPV (test code = 8.9 fL 9.5-12.9 L 26421-5) NRBC/100 WBC (test See_Comment [Automat ed code = 5028086389) message] The system which generated this result transmitted reference range : 0.0 - 10.0 /100 WBCs. The refer ence range was not u sed to interpret th is result as normal/abnormal . NRBC x10^3 (test code See_Comment [Auto mated = 5361871881) message] The s ystem which generated this result transmitted reference range : 10*3/?L. The reference range was not used to interpret this result as normal/abnormal . GRAN MAT (NEUT) % 65.9 % (test code = 770-8) IMM GRAN % (test code 0.30 % = 5830610720) LYMPH % (test code = 21.0 % 736-9) MONO % (test code = 10.1 % 5905-5) EOS % (test code = 2.4 % 713-8) BASO % (test code = 0.3 % 706-2) GRAN MAT x10^3(ANC) 2.49 10*3/uL 1.88-7.09 (test code = 3175331741) IMM GRAN x10^3 (test 0.00-0.06 code = 1812758222) LYMPH x10^3 (test code 0.79 10*3/uL 1.32-3.29 L = 731-0) MONO x10^3 (test code 0.38 10*3/uL 0.33-0.92 = 742-7) EOS x10^3 (test code = 0.09 10*3/uL 0.03-0.39 711-2) BASO x10^3 (test code 0.01-0.07 = 704-7) Lab Interpretation Abnormal (test code = 74410-8) [facility] WITH [id number] 11:18:28 Test Item Value Reference Range Interpretation [...] RDW-SD (test code = 49.5 fL 39-49.9 39171-6) RDW-CV (test code = 15.5 % 12-15.5 788-0) PLT (test code = See_Comment L [Automated 777-3) message] The sy stem which generated this result transmitted reference range : 166 - 358 10*3/ ?L. The reference r abbey was not used to interpret this result as normal/abnormal . MPV (test code = 11.4 fL 9.5-12.9 98779-1) IPF % (test code = 8.7 % 1.3-7.7 H Platelet count 2391824690) measured by fluorescence method. NRBC/100 WBC (test See_Comment [Automat ed code = 9435892823) message] The system which generated this result transmitted reference range : 0.0 - 10.0 /100 WBCs. The refer ence range was not u sed to interpret th is result as normal/abnormal . NRBC x10^3 (test code See_Comment [Auto mated = 7452062737) message] The s ystem which generated this result transmitted reference range : 10*3/?L. The reference range was not used to interpret this result as normal/abnormal . GRAN MAT (NEUT) % 62.0 % (test code = 770-8) IMM GRAN % (test code 0.80 % = 8974164339) LYMPH % (test code = 22.2 % 736-9) MONO % (test code = 9.6 % 5905-5) EOS % (test code = 5.1 % 713-8) BASO % (test code = 0.3 % 706-2) GRAN MAT x10^3(ANC) 2.21 10*3/uL 1.88-7.09 (test code = 1813310637) IMM GRAN x10^3 (test 0.03 10*3/uL 0-0.06 code = 7144313902) LYMPH x10^3 (test code 0.79 10*3/uL 1.32-3.29 L = 731-0) MONO x10^3 (test code 0.34 10*3/uL 0.33-0.92 = 742-7) EOS x10^3 (test code = 0.18 10*3/uL 0.03-0.39 711-2) BASO x10^3 (test code 0.01-0.07 = 704-7) POLYCHROMASIA (test 2+ See_Comment [Automa arpit code = 65110-3) message] The system which generated this result [...] . Lab Interpretation Abnormal (test code = 46886-1) [facility] [place] METABOLIC PANEL (NA, K, CL, CO2, GLUCOSE, BUN, CREATININE, CA)2022-02-13 10:39:07 Test Item Value Reference Range Interpretation Comments NA (test code = 136 mmol/L 135-145 0322332763) K (test code = 4.1 mmol/L 3.5-5 9808473595) CL (test code = 102 mmol/L 98-108 2735338315) CO2 TOTAL (test code = 27 mmol/L 23-31 1045587868) AGAP (test code = 2-16 8453605122) BUN (test code = 22 mg/dL 7-23 7147795153) GLUCOSE (test code = 94 mg/dL 70-110 8665763115) CREATININE (test code = 0.94 mg/dL 0.5-1.04 8717414214) CALCIUM (test code = 8.1 mg/dL 8.6-10.6 L 0331336176) eGFR (test code = mL/min/1.73m2 0670281365) KYLE (test code = KYLE) Association of [...] tests). Lab Interpretation Abnormal (test code = 17337-6) [facility] 01:50:10 Test Item Value Reference Range Interpretation Comments Height (test code = in 8382636728) Weight (test code = lbs 7549149091) Systolic BP (test code mmHg = 1531618596) Diastolic BP (test code mmHg = 6875892923) Heart Rate (test code = bpm 4147846054) BSA (test code = 1.85 m2 8566071693) IVS (test code = 1.22 cm 6414175925) Interventricular Septum 1.22 cm Diastolic Thickness by 2D (test code = 7262509) LVIDD (test code = 5.00 cm 7467452930) Left Ventricular End 117.9 mL Diastolic Volume by Teichholz Method (test code = 7742832) LVPWD (test code = 1.22 cm 2841893221) PW (test code = 1.22 cm 0.6-1.9 6324432165) EF(Teich) (test code = 74.60 % 8169595030) LVIDS (test code = 2.80 cm 4049627133) Left Ventricular End 29.9 mL Systolic Volume by Teichholz Method (test code = 9780886) FS (test code = 44 % 3462967478) EF - 2D (test code = 74.60 % 86840327) LVOT diameter (test 2.16 cm code = 5637385044) LVOT area (test code = 3.70 cm2 4925245110) Ao root diam (test code 3.40 cm = 2608614335) Aortic root (test code 3.4 cm = 9488579565) Ao root annulus (test 3.4 cm code = 2968380515) LA size (test code = 3.4 cm 8173541571) TR Peak Spencer (test code 330.0 cm/s = 7268514306) Triscuspid Valve mmHg Regurgitation Peak Gradient (test code = 3632874869) PV REGURGITATION PEAK mmHg GRADIENT (test code = 8857503441) PI dec slope (test code 137.20 cm/s2 = 3127518662) LAV(MOD-sp4) (test code 102.90 mL = 0543772297) MV Peak E Spencer (test 84.1 cm/s code = 1843545049) MV Peak A Spencer (test 40.1 cm/s code = 0481551815) E/A ratio (test code = ratio 9724346442) MV valve area p 1/2 3.70 cm2 method (test code = 6302312117) MV dec slope (test code 413.00 cm/s2 = 4319954172) MV P1/2t max spencer (test 83.70 cm/s code = 0109009270) MV Prop V (test code = 41.80 cm/s 4936034834) Tapse (test code = 1.83 cm 1204618231) LVOT stroke volume 96.90 cm3 (test code = 9195361274) LVOT peak spencer (test 125.5 cm/s code = 0428111219) LVOT mn grad (test code mmHg = 3629669440) AV LVOT peak gradient mmHg (test code = 6479517184) LVOT peak VTI (test 26.4 cm code = 7358232068) LV V1 mean (test code = 78.10 cm/s 3013474109) Aortic valve mean 103.7 cm/s velocity (test code = 1556657257) Ao peak spencer (test code 165.6 cm/s = 0048223036) Ao VTI (test code = 37.2 cm 8357885915) AV area by cont VTI 2.6 cm2 (test code = 5867740481) AV area peak spencer (test 2.8 cm2 code = 4091493792) Ao max PG (test code = 11.00 mm[Hg] 2752694711) AV peak gradient (test mmHg code = 8360726649) AV valve area (test 2.60 cm2 code = 9372450853) AV mean gradient (test mmHg code = 8865639698) LA Volume Index (BP) 55.2 mL/m2 (test code = 1862687228) LA volume (BP) (test 102.1 mL code = 4069832526) LAV(MOD-sp2) (test code 86.10 mL = 9207752007) A2C EF (test code = 61.20 % 9412739152) EF(sp2-el) (test code = 61.60 % 7214668454) SV(MOD-sp2) (test code 47.10 mL = 9119170005) LV Diastolic Volume 70.7 mL (BP) (test code = 4119565026) A4C EF (test code = 53.00 % 1319495822) EF(MOD-bp) (test code = 56.70 % 9141001497) EF(sp4-el) (test code = 53.90 % 9465179934) LV Systolic Volume (BP) 30.6 mL (test code = 7525717639) SV(MOD-bp) (test code = 40.10 mL 9175425313) SV(MOD-sp4) (test code 32.40 mL = 7710778511) SV(sp4-el) (test code = 33.10 mL 6183556726) EF (test code = 1853664664) Left Ventricular Stroke 40.1 mL Volume by 2-D Biplane-MOD (test code = 4394106) LV Diastolic Volume 38.2 mL/m2 Index (BP) (test code = 0283674537) LV Systolic Volume 16.5 mL/m2 Index (BP) (test code = 6611196861) Radiology Study observation (narrative) (test code = 08029-6) KYLE (test code = KYLE) ?Left?Ventricle: Left [...] 1.00The left ventricular wall motion is normal. [id number] 05:45:01 Test Item Value Reference Interpretation Comments Range TROPONIN I (test See_Comment [Automated code = 6181748823) message] The system which generated this result [...] biotin. Lab Interpretation Normal (test code = 94937-3) [facility] [place] [facility] [id number] 05:41:40 Test Item Value Reference Range Interpretation Comments NT-proBNP (test code 4250 pg/mL See_Comment H [Autom ated = 9391327060) message] The system which generated this result transmitted reference range : <=125. The reference range was not used to interpret this result as normal/abnormal . KYLE (test code = KYLE) Biotin has been reported to cause a negative bias, interpret results relative to patient's use of biotin. Lab Interpretation Abnormal (test code = 30089-5) [facility] [place] [facility] [id number] 05:35:21 Test Item Value Reference Range Interpretation Comments APTT Patient (test See_Comment [Automat ed code = 3173-2) message] The system which generated this result transmitted reference range : 23 - 38 Seconds . The reference range was not used to interpr et this result as normal/abnormal . KYLE (test code = KYLE) The [facility] patient population mean normal value for aPTT is 30 seconds. Lab Interpretation Normal (test code = 03936-5) [facility] [id number] 05:35:21 Test Item Value Reference Range Interpretation Comments APTT Patient (test See_Comment [Automat ed code = 3173-2) message] The system which generated this result transmitted reference range : 23 - 38 Seconds . The reference range was not used to interpr et this result as normal/abnormal . KYLE (test code = KYLE) The [facility] patient population mean normal value for aPTT is 30 seconds. Lab Interpretation Normal (test code = 69533-8) [facility] [place] [facility] CenterPROT[facility] / [id number] 05:33:21 Test Item Value Reference Range Interpretation [...] tions. Lab Interpretation (test Normal code = 93460-1) [facility]OL[facility] (34805)2022-02-11 05:33:21 Test Item Value Reference Range Interpretation Comments NA (test code = 137 mmol/L 135-145 0342241947) K (test code = 4.3 mmol/L 3.5-5 3910520668) CL (test code = 103 mmol/L 98-108 1027437128) CO2 TOTAL (test code = 25 mmol/L 23-31 5185945472) AGAP (test code = 2-16 4805675847) BUN (test code = 19 mg/dL 7-23 0803572841) GLUCOSE (test code = 120 mg/dL 70-110 H 7377824324) CREATININE (test code = 1.15 mg/dL 0.5-1.04 H 7582163486) TOTAL BILI (test code = 0.9 mg/dL 0.1-1.7 1334805918) CALCIUM (test code = 8.9 mg/dL 8.6-10.6 3930935701) T PROTEIN (test code = 6.6 g/dL 6.3-8.2 6723545289) ALBUMIN (test code = 4.0 g/dL 3.5-5 1650672468) ALK PHOS (test code = 73 U/L 34-122 2197217639) ALTv (test code = 18 U/L 5-35 1742-6) AST(SGOT) (test code = 31 U/L 13-40 9388355480) eGFR (test code = mL/min/1.73m2 0978418850) KYLE (test code = KYLE) Association of [...] tests). Lab Interpretation Abnormal (test code = 37584-3) [facility]. METABOLIC PANEL (24834)2022-02-11 05:33:21 Test Item Value Reference Range Interpretation Comments NA (test code = 137 mmol/L 135-145 3400299664) K (test code = 4.3 mmol/L 3.5-5.0 2351615705) CL (test code = 103 mmol/L 98-108 6854604090) CO2 TOTAL (test code = 25 mmol/L 23-31 8789927391) AGAP (test code = 2-16 3427052080) BUN (test code = 19 mg/dL 7-23 6021106968) GLUCOSE (test code = 120 mg/dL 70-110 H 9073929069) CREATININE (test code = 1.15 mg/dL 0.50-1.04 H 6684723334) TOTAL BILI (test code = 0.9 mg/dL 0.1-1.2 4282015384) CALCIUM (test code = 8.9 mg/dL 8.6-10.6 9758301698) T PROTEIN (test code = 6.6 g/dL 6.3-8.2 8757414661) ALBUMIN (test code = 4.0 g/dL 3.5-5.0 1185093337) ALK PHOS (test code = 73 U/L 34-122 3793432352) ALTv (test code = 18 U/L 5-35 1742-6) AST(SGOT) (test code = 31 U/L 13-40 8919754949) eGFR (test code = mL/min/1.73m2 5973973882) KYLE (test code = KYLE) Association of [...] tests). Lab Interpretation Abnormal (test code = 70166-8) [facility] [place] [facility] CenterPROT[facility] / [id number] 05:33:21 Test Item Value Reference Range Interpretation [...] tions. Lab Interpretation (test Normal code = 37910-9) [facility] WITH [id number] 05:14:37 Test Item Value Reference Range Interpretation Comments WBC (test code = See_Comment [Automated 6690-2) message] The sy stem which generated this result transmitted reference range : 4.30 - 11.10 10*3/?L. The reference range was not used to interpret this result as normal/abnormal . RBC (test code = See_Comment L [Automated 639-8) message] The sy stem which generated this [...] RDW-SD (test code = 47.9 fL 39-49.9 88082-9) RDW-CV (test code = 14.9 % 12-15.5 788-0) PLT (test code = See_Comment L [Automated 777-3) message] The sy stem which generated this result transmitted reference range : 166 - 358 10*3/ ?L. The reference r abbey was not used to interpret this result as normal/abnormal . MPV (test code = 9.1 fL 9.5-12.9 L 72197-1) NRBC/100 WBC (test See_Comment [Automat ed code = [id number]) message] The system which generated this result transmitted reference range : 0.0 - 10.0 /100 WBCs. The refer ence range was not u sed to interpret th is result as normal/abnormal . NRBC x10^3 (test code See_Comment [Auto mated = [id number]) message] The s ystem which generated this result transmitted reference range : 10*3/?L. The reference range was not used to interpret this result as normal/abnormal . GRAN MAT (NEUT) % 78.5 % (test code = 770-8) IMM GRAN % (test code 0.20 % = [id number]) LYMPH % (test code = 11.6 % 736-9) MONO % (test code = 8.4 % 5905-5) EOS % (test code = 1.1 % 713-8) BASO % (test code = 0.2 % 706-2) GRAN MAT x10^3(ANC) 3.45 10*3/uL 1.88-7.09 (test code = [id number]) IMM GRAN x10^3 (test 0-0.06 code = [id number]) LYMPH x10^3 (test code 0.51 10*3/uL 1.32-3.29 L = 731-0) MONO x10^3 (test code 0.37 10*3/uL 0.33-0.92 = 742-7) EOS x10^3 (test code = 0.05 10*3/uL 0.03-0.39 711-2) BASO x10^3 (test code 0.01-0.07 = 704-7) Lab Interpretation Abnormal (test code = 15395-7) [facility] Coronavirus 2019 Yzzmbtu7770-74-60 18:08:00 Test Item Value Reference Range Interpretation [...] det ection of nucleic acids f rom ogsQXVD-OsO-2 v irus and diagnosis of SA RS-CoV-2 virusinfection. It is an Emergency Use Authorization ( EUA) testauthorized by the U.S. FDA. BASIC METABOLIC [id number] 09:37:00 Test Item Value Reference Range Interpretation [...] = 9.0 mg/dL 8.0-10.5 N CA) PROTHROMBIN RELX2315-04-94 09:32:00 Test Item Value Reference Range Interpretation [...] (to prevent recurrent infar ct). 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 1955 Sex: F FAX: Urmila KellyBibiana Francisco Peterson [phone] [place]: St: ADM FAX: Mike Scales MD [phone] FAX: Bahman Chopra [phone] Name: LIO WATTS [facility] : 1955 Age/S: 66/F [address] [place] [address] Unit #: [id number] Loc: [place] [address] Phys: Bahman Chopra [facility] Acct: [id number] Dis Date: Status: ADM IN PHONE #: [phone] Exam Date: 06/17/2021 1320 FAX #: [phone] Reason: WATCHMAN EXAMS: CPT CODE: [id number] XR CHEST 1 V 77504 PROCEDURE INFORMATION: Exam: XR Chest Exam date [...] failure/volume loading. 2. Subsegmental atelectasis bilateral. at 7789 Reported and signed by: Lambert Vega M.D. CC: Lele Rahman DO; Mike Lund MD; Bahman Chopra Technologist: RT Taylor(R) Trnscrd Date/Time/By: 06/17/2021 (4440) : By: [email or web address] Orig Print D/T: S: 06/17/2021 (4444) PAGE 1 Signed ReportCOVID 19 Asymptomatic IH [id number] 12:29:00 Test Item Value Reference Range Interpretation [...] high or waivedcomplexit y tests. BASIC METABOLIC [id number] 11:37:00 Test Item Value Reference Range Interpretation [...] code = 9.0 mg/dL 8.0-10.5 N CA) VZRBXMVOBX7801-36-51 11:37:00 Test Item Value Reference Range Interpretation Comments PREALBUMIN (test code = PREALB) 24.3 mg/dL 16.0-40.0 N PROTHROMBIN [id number] 11:03:00 Test Item Value Reference Range Interpretation [...] (to prevent recurrent infar ct). CBC W/AUTO [id number] 10:59:00 Test Item Value Reference Range Interpretation [...] 0.0-0.1 N NRBC#) - XR CHEST 2 [id number] 00:00:00 [facility] 1955 Sex: F FAX: RobinUrmilaBibiana DanielFrancisco H [phone] [place]: St: PRE FAX: Mike Scales MD [phone] Name: LIO WATTS [facility] : 1955 Age/S: 66/F [address] [place] [address] Unit #: [id number] Loc: [place] [address] Phys: Mike Lund MD Acct: [id number] Dis Date: Status: PRE SDC PHONE #: [phone] Exam Date: 06/16/2021 1120 FAX #: [phone] Reason: PREOP EXAMS: CPT CODE: [id number] XR CHEST 2 V 10753 PROCEDURE INFORMATION: Exam: XR Chest Exam date [...] Andree(R) Trnscrd Date/Time/By: 06/16/2021 (1134) : By: [email or web address] Orig Print D/T: S: 06/16/2021 (1138) PAGE 1 Signed ReportGastrointestinal igxqo8538-69-42 04:35:05 Test Item Value Reference Interpretation Comments [...] Rotavirus PCR (test Not Detected code = 1602955) Salmonella PCR (test Not Detected code = [...] PCR Not Detected (test code = 7124) [facility] pvzwxmx7908-02-52 19:30:47 Test Item Value Reference Range Interpretation Comments Case number (test [id number] code = 8212548) Surgical pathology See link below for PDF report (test code = Lab Report 2255) Result status (test This is Supplemental code = 9289124) Report for [id number] [facility]2021-04-09 16:31:00 Test Item Value Reference Range Interpretation Comments POC Activated Clotting Time (test code 153 s = POC Activated Clotting Time) [facility]IyrqmfxGRAXAQFIES7685-42-16 16:31:00 Test Item Value Reference Range Interpretation Comments POC Activated Clotting Time (test code 153 s = POC Activated Clotting Time) [facility] SoutheastNqovczuANGLWRDOFQ3352-63-24 16:31:00 Test Item Value Reference Range Interpretation Comments POC Activated Clotting Time (test code 153 s = POC Activated Clotting Time) [facility] SoutheastVgezkubAIHABCQMUQ4417-97-34 16:31:00 Test Item Value Reference Range Interpretation Comments POC Activated Clotting Time (test code 153 s = POC Activated Clotting Time) [facility] SoutheastDfitnllMRDATYDMAY6466-11-33 16:31:00 Test Item Value Reference Range Interpretation Comments POC Activated Clotting Time (test code 153 s = POC Activated Clotting Time) [facility] SoutheastTkyhaxzQTMIYDWVIP6234-48-65 16:31:00 Test Item Value Reference Range Interpretation Comments POC Activated Clotting Time (test code 153 s = POC Activated Clotting Time) [facility] SoutheastZbnkveiKDUOXIYXKA4238-20-86 16:31:00 Test Item Value Reference Range Interpretation Comments POC Activated Clotting Time (test code 153 s = POC Activated Clotting Time) [facility] SoutheastGbptjdlXWAVYEXKUT2395-34-94 14:37:00 Test Item Value Reference Range Interpretation Comments POC Activated Clotting Time (test code 454 s = POC Activated Clotting Time) [place] [address]-04-09 14:37:00 Test Item Value Reference Range Interpretation Comments POC Activated Clotting Time (test code 454 s = POC Activated Clotting Time) [facility] SoutheastLzjlanlLPYLJVNSDA9618-89-79 14:37:00 Test Item Value Reference Range Interpretation Comments POC Activated Clotting Time (test code 454 s = POC Activated Clotting Time) [facility] SoutheastWhgphixPXYZZZVYPX0243-34-26 14:37:00 Test Item Value Reference Range Interpretation Comments POC Activated Clotting Time (test code 454 s = POC Activated Clotting Time) [facility] SoutheastYpxdotjEZILYTYVMH3016-52-79 14:37:00 Test Item Value Reference Range Interpretation Comments POC Activated Clotting Time (test code 454 s = POC Activated Clotting Time) [facility] SoutheastRkkfmpkFJWUSLIQRS9974-95-44 14:37:00 Test Item Value Reference Range Interpretation Comments POC Activated Clotting Time (test code 454 s = POC Activated Clotting Time) [facility] SoutheastHejawgjLYVDDFBGZT6941-08-04 14:37:00 Test Item Value Reference Range Interpretation Comments POC Activated Clotting Time (test code 454 s = POC Activated Clotting Time) [facility] SoutheastXfcujvdTIYYJGYNFV9775-18-59 14:13:00 Test Item Value Reference Range Interpretation Comments POC Activated Clotting Time (test code 354 s = POC Activated Clotting Time) [facility] SoutheastJzxexctYAJYWSFVTI3901-85-38 14:13:00 Test Item Value Reference Range Interpretation Comments POC Activated Clotting Time (test code 354 s = POC Activated Clotting Time) [facility] SoutheastClzuvpkCUSMXNHCGI1823-20-47 14:13:00 Test Item Value Reference Range Interpretation Comments POC Activated Clotting Time (test code 354 s = POC Activated Clotting Time) [facility] SoutheastOqdsmrvMEZVWWOMNH7914-58-43 14:13:00 Test Item Value Reference Range Interpretation Comments POC Activated Clotting Time (test code 354 s = POC Activated Clotting Time) [facility] SoutheastEygdzunZABKZPEGCB6817-23-29 14:13:00 Test Item Value Reference Range Interpretation Comments POC Activated Clotting Time (test code 354 s = POC Activated Clotting Time) [facility] SoutheastBbzhutuZMACGNTIFK6217-49-79 14:13:00 Test Item Value Reference Range Interpretation Comments POC Activated Clotting Time (test code 354 s = POC Activated Clotting Time) [facility] SoutheastCepoqjdVXOKFYIFDH4737-90-09 14:13:00 Test Item Value Reference Range Interpretation Comments POC Activated Clotting Time (test code 354 s = POC Activated Clotting Time) [facility]2021-04-09 10:37:00Negative (08/29/20 5:37 AM) [facility] NRNIY6601-08-28 10:37:06867Djmmmivv HermannCHEM PANEL 2020-08-29 10:37:0028[facility]annCHE[facility] IJEVP9277-93-23 10:37:001.01[facility]CHE[facility] XOECU2380-53-97 10:37:66702Pcyvyspd [facility]annCHEM OVSJG7568-09-02 10:37:003.8[facility]annCHE[facility] QJEUE2762-36-71 10:37:34164Ylhbpjtl [facility]annCHE[facility] GGSDN5170-59-07 10:37:0028[facility]CHE[facility] LYEPQ7733-54-02 10:37:009.8 [facility] KLSMC3107-80-97 10:37:0011.8[facility]annCHEM PANEL 2020-08-29 10:37:0059[facility]annCHEM DALJS1105-74-16 10:37:002.9[facility] VgmvjeqTFWZBDFQOL2766-68-87 10:37:006.8[facility] GodywroFRGTDAVWYH7522-46-41 10:37:004.47[facility] MjewkbdZLQUNHHLRI8038-56-80 10:37:0010.6[facility] ZNBYMMBIJU3375-26-64 10:37:0034.0[facility] HayhcqlFJZSKVHDET5188-01-54 10:37:00 76.1[facility] LykoebaSFBOFAABGL2583-67-47 10:37:00 Test Item Value Reference Range Interpretation Comments MCH (test code = MCH) 23.8 pg 27.0-31.0 [facility] YksgnvrZJARKGNYKG5873-86-16 10:37:0031.3[facility]annHEMATOLOGY 2020-08-29 10:37:0018.2[facility] JltaiwnSZXNKHMJSX1749-61-98 10:37:74289Vrjwfwno TffenoyRWCVVOEVMF7870-81-33 10:37:007.5[facility] NhucivlYOBRSKBWZA4438-75-93 10:37:00 Test Item Value Reference Range Interpretation Comments PT (test code = PT) 12.8 s 12.0-14.7 [facility] OsabuivOHVDQMNZDD0977-53-75 10:37:00 Test Item Value Reference Range Interpretation Comments INR (test code = INR) 0.97 1 0.85-1.17 [facility] PucdlobNIRZEHMJKI6565-55-69 10:37:00 Test Item Value Reference Range Interpretation Comments PTT (test code = PTT) 25.0 s 22.9-35.8 [facility] NsjacvpTIAMWIOVWH5205-44-11 10:37:0070.5[facility]annHEMATOLOGY 2020-08-29 10:37:0018.8[facility] LvdbkvuRFDLYVRWCZ0494-60-99 10:37:009.5[facility] JllkpznVJIHRISDSY2286-30-39 10:37:000.9[facility] XzjuxnlTKJETTCAEC4858-26-15 10:37:000.3[facility] KzldvnaZKAVUUEYAO9374-34-48 10:37:004.8[facility] OMQPDVYGDM9697-07-54 10:37:001.3[facility] XxqiqcbMERANYYBVA2215-92-49 10:37:000.6 [facility] SaiybfhNUWVOCKQAY9234-56-49 10:37:000.1[facility]annHEMATOLOGY 2020-08-29 10:37:001+ *ABN*(08/29/20 5:37 AM)[facility] TmkmtbsTOWQBERUYO3584-64-15 10:37:00Not Detected (08/29/20 5:37 AM)[facility]annBLOOD BANK RESULTS 2020-08-29 10:37:00Negative (08/29/20 5:37 AM)[facility]annCHEM NXVSO9237-16-17 10:37:13354Ajodbzrk HermannCHEM ORSGV2136-42-47 10:37:0028[facility]annCHE[facility] CJGFQ8659-43-08 10:37:001.01[facility]annCHE[facility] UPOKI9677-60-64 10:37:95284 [facility] RITQD8293-18-68 10:37:003.8[facility]annCHEM PANEL 2020-08-29 10:37:82207Oykuqdrp HermannCHEM AUZZL8680-02-49 10:37:0028[facility]annCHE[facility] NPSLP7296-74-68 10:37:009.8[facility]annCHE[facility] CBGCH7983-98-31 10:37:0011.8[facility]annCHE[facility] IPDDT7948-98-85 10:37:0059[facility]annCHEM MOEYN3553-35-47 10:37:002.9[facility] VmyqkixRUKOXCGAAA1964-34-51 10:37:006.8 [facility] UzgtrfxNEKCPWGRVU6033-46-56 10:37:004.47[facility]annHEMATOLOGY 2020-08-29 10:37:0010.6[facility] UtujigfUYJUCNANKR7507-45-80 10:37:0034.0[facility] IcjtilyJKOEPHTVQQ2254-85-76 10:37:0076.1[facility] ZzpwrwdPCNFYNHZZU8319-25-48 10:37:00 Test Item Value Reference Range Interpretation Comments MCH (test code = MCH) 23.8 pg 27.0-31.[address] [facility] UqhvtinCSMCXFFGZB7127-63-98 10:37:0031.3[facility]annHEMATOLOGY 2020-08-29 10:37:0018.2[facility] DzoowrpUIHUUZAATY1348-76-76 10:37:84707Qldufvee EhegwwiRPKJEGKMVL5873-56-06 10:37:007.5[facility] OwdxpinXRRCVYPHZV2155-61-53 10:37:00 Test Item Value Reference Range Interpretation Comments PT (test code = PT) 12.8 s 12.0-14.[address] [facility] NuptiqnWNSHWHHCLK4965-06-68 10:37:00 Test Item Value Reference Range Interpretation Comments INR (test code = INR) 0.97 1 0.85-1.[address] [facility] PrdtxzeBLRDXEISON6342-45-51 10:37:00 Test Item Value Reference Range Interpretation Comments PTT (test code = PTT) 25.0 s 22.9-35.[address] [facility] GdsntwzMIXVNQTVNC3134-45-81 10:37:0070.5[facility]annHEMATOLOGY 2020-08-29 10:37:0018.8[facility] MhqjlngBAZJMKMUEB5777-11-46 10:37:009.5[facility] JrlidqxDSLAGSQKWT3984-26-51 10:37:000.9[facility] LfuiopbOMZBBLRCXP2999-93-70 10:37:000.3[facility] VdhabdeHGQLKYWPVM6482-41-59 10:37:004.8[facility] WTPWPPTGYT0874-30-02 10:37:001.3[facility] JmxojgfJVPNHNXARS5180-61-90 10:37:000.6 [facility] JwqmtmhMNSAQTFNIH3895-31-78 10:37:000.1[facility]annHEMATOLOGY 2020-08-29 10:37:001+ *ABN*(08/29/20 5:37 AM)[facility] YtumsmuSAWGOABFKA3493-95-12 10:37:00Not Detected (08/29/20 5:37 AM)[facility]annBLOOD BANK RESULTS 2020-08-29 10:37:00Negative (08/29/20 5:37 AM)[facility]annCHEM CNCXH6930-20-19 10:37:79941Lacwvssb HermannCHEM LBDLA0010-53-21 10:37:0028[facility]annCHEM WSFKB6528-57-55 10:37:001.01[facility]annCHEM QYCMD6690-39-88 10:37:50299 [facility]CHE[facility] BCMMK5945-84-40 10:37:003.8[facility]annCHEM PANEL 2020-08-29 10:37:18973Jgaiopux HermannCHEM XEWYC3812-32-18 10:37:0028[facility]annCHEM UVRTD3179-54-69 10:37:009.8[facility]annCHEM ZUCNH8023-55-12 10:37:0011.8[facility]annCHEM ZCALV2219-90-27 10:37:0059[facility]annCHEM HNYZY6032-19-83 10:37:002.9[facility] CwsnzpgEEBIPRKQIG7652-69-21 10:37:006.8 [facility] XmikpwhCSCHNAGWUK3347-81-23 10:37:004.47[facility]annHEMATOLOGY 2020-08-29 10:37:0010.6[facility] PtkyjtdMYANYXZCLT5147-59-32 10:37:0034.0[facility] CjbkhjtDKQOTJDIEK4874-18-43 10:37:0076.1[facility] DfjtmtzMKZCJOAYIE6922-27-48 10:37:00 Test Item Value Reference Range Interpretation Comments MCH (test code = MCH) 23.8 pg 27.0-31.0 [facility] ZdpncehJLLWOMENDX8521-43-68 10:37:0031.3[facility]annHEMATOLOGY 2020-08-29 10:37:0018.2[facility] BxlcvimPZPQOFFQHK6300-61-41 10:37:29485Bsrxsgux PnldeqxDXCYRPEGYI0131-91-97 10:37:007.5[facility] JstsyorSSTLWOEIIO4249-13-90 10:37:00 Test Item Value Reference Range Interpretation Comments PT (test code = PT) 12.8 s 12.0-14.7 [facility] XacowlmTHZUGZUMDB3261-95-16 10:37:00 Test Item Value Reference Range Interpretation Comments INR (test code = INR) 0.97 1 0.85-1.17 [facility] UgcbuxqTGBLHMZAYX9023-58-76 10:37:00 Test Item Value Reference Range Interpretation Comments PTT (test code = PTT) 25.0 s 22.9-35.8 [facility] AttyyjsQCTFWOYVRE8946-15-13 10:37:0070.5[facility] HermannHEMATOLOGY 2020-08-29 10:37:0018.8[facility] QymswurTXZLMWVZXI8913-63-07 10:37:009.5[facility] NpdvlylYOHWXSSTPN1114-02-90 10:37:000.9[facility] QdcwfbzHQBSVCXJLV6420-10-51 10:37:000.3[facility] ErllnsxLHNQGVBTAT3439-89-40 10:37:004.8[facility] [place] FTPQWEBRUZ3427-50-47 10:37:001.3[facility] UzcvpeyQCICZGQMUX8126-34-17 10:37:000.6 [facility] RzcorjkHQADOMFCUQ8680-92-39 10:37:000.1[facility]annHEMATOLOGY 2020-08-29 10:37:001+ *ABN*(08/29/20 5:37 AM)[facility] ErmxclcVQAKAMHVWC9924-57-54 10:37:00Not Detected (08/29/20 5:37 AM)[facility]annBLOOD BANK RESULTS 2020-08-29 10:37:00Negative (08/29/20 5:37 AM)[facility]annCHEM JCEGQ3402-79-94 10:37:20104Ysqohxvx HermannCHEM MTYTQ1799-11-40 10:37:0028[facility]annCHEM LQCDC0353-48-27 10:37:001.01[facility]annCHEM SMHWK5696-82-27 10:37:82242 [facility]annCHE[facility] MICLI3118-07-41 10:37:003.8[facility] HermannCHEM PANEL 2020-08-29 10:37:05104Ibvxbjwn HermannCHEM KTZEE1358-76-32 10:37:0028[facility]annCHEM CDEIA8386-40-33 10:37:009.8[facility]annCHEM TWDKO8030-10-15 10:37:0011.8[facility] HermannCHEM ADPFZ5459-37-75 10:37:0059[facility]annCHEM DSEYP0608-14-32 10:37:002.9[facility] TpdlffyAWWEIMQOED9813-64-60 10:37:006.8 [facility] ZhqzhfzOWLBAHSKPL2683-69-58 10:37:004.47[facility]annHEMATOLOGY 2020-08-29 10:37:0010.6[facility] SvygpdrHZOWRKWCNG4120-09-09 10:37:0034.0[facility] BigbfycZTMUZASZMD2912-66-25 10:37:0076.1[facility] FfzwwwaZFOKLDVADA5754-15-29 10:37:00 Test Item Value Reference Range Interpretation Comments MCH (test code = MCH) 23.8 pg 27.0-31.0 [facility] IsqtpvfZZPEEUVUHD3921-26-81 10:37:0031.3[facility] HermannHEMATOLOGY 2020-08-29 10:37:0018.2[facility] OvgunzaQWSEZDIUTT4407-90-73 10:37:14591Jlacqfmr HkkgdmmQIHBYLXUHI8223-21-58 10:37:007.5[facility] HdcdxhdPRHFAUAYJP2616-76-83 10:37:00 Test Item Value Reference Range Interpretation Comments PT (test code = PT) 12.8 s 12.0-14.7 [facility] WdktdxcRNUOLKOPHO7118-37-83 10:37:00 Test Item Value Reference Range Interpretation Comments INR (test code = INR) 0.97 1 0.85-1.17 [facility] RfbsgjnUTDWUHYIIC4324-13-04 10:37:00 Test Item Value Reference Range Interpretation Comments PTT (test code = PTT) 25.0 s 22.9-35.8 [facility] BhsvkjgFFFDPJRAQG3368-17-38 10:37:0070.5[facility]annHEMATOLOGY 2020-08-29 10:37:0018.8[facility] XlajfjsCMFOFWGYJD6187-80-10 10:37:009.5[facility] JthmuvqUGZCQWFOZC4162-34-72 10:37:000.9[facility] YtjhcsrOTCILTLJBK3062-54-23 10:37:000.3[facility] TbbojxsMPQYCLVDZQ2158-89-16 10:37:004.8[facility] BPPLPFUBXW6896-38-15 10:37:001.3[facility] RgyaczxLIJWJIDKZW7580-77-70 10:37:000.6 [facility] RzualegVERTABSXPV7291-67-49 10:37:000.1[facility]annHEMATOLOGY 2020-08-29 10:37:001+ *ABN*(08/29/20 5:37 AM)[facility] CbpvihoQHDFCHKENT3596-20-14 10:37:00Not Detected (08/29/20 5:37 AM)[facility]annBLOOD BANK RESULTS 2020-08-29 10:37:00Negative (08/29/20 5:37 AM)[facility]annCHEM IRVMJ1891-24-89 10:37:92861Xkwopnmj HermannCHEM DLXLY8966-89-50 10:37:0028[facility]annCHEM DXVWE9861-53-64 10:37:001.01[facility]annCHEM YASBQ9578-74-17 10:37:16637 [facility]CHE[facility] ITILX7692-52-27 10:37:003.8[facility]annCHEM PANEL 2020-08-29 10:37:37411Doynatya HermannCHEM QBCSB5110-10-81 10:37:0028[facility]annCHEM NQPBR0137-75-14 10:37:009.8[facility]annCHEM TLJLY3823-58-21 10:37:0011.8[facility]annCHEM HYPRR3089-72-37 10:37:0059[facility]annCHEM GGFDB9742-22-85 10:37:002.9[facility] VkxtarlOCMVEAYMWK8124-60-80 10:37:006.8 [facility] PsqlongUBSHHDPJJZ9304-00-41 10:37:004.47[facility]annHEMATOLOGY 2020-08-29 10:37:0010.6[facility] YbtgmmpNIQHJFKGHJ1470-30-21 10:37:0034.0[facility] FytempqFZVRGIVXQM5476-46-88 10:37:0076.1[facility] PnbrphbESMZWRQUQE0971-43-65 10:37:00 Test Item Value Reference Range Interpretation Comments MCH (test code = MCH) 23.8 pg 27.0-31.[address] [facility] ZdopmryZYWKYRDGSN4792-43-89 10:37:0031.3[facility]annHEMATOLOGY 2020-08-29 10:37:0018.2[facility] QcmjotlICRBCJXSQK8071-26-08 10:37:69921Siazuqhj EqjdyxpLMKYNDUNFK4683-98-47 10:37:007.5[facility] DlzfdygEYWJITTQBU4727-18-65 10:37:00 Test Item Value Reference Range Interpretation Comments PT (test code = PT) 12.8 s 12.0-14.[address] [facility] YhrdhgrPPIMGWHWIK6721-44-51 10:37:00 Test Item Value Reference Range Interpretation Comments INR (test code = INR) 0.97 1 0.85-1.[address] [facility] SqukevnPIDVUVWHQE6391-95-40 10:37:00 Test Item Value Reference Range Interpretation Comments PTT (test code = PTT) 25.0 s 22.9-35.[address] [facility] YoyiqrtLRLHFGCAYQ4088-07-69 10:37:0070.5[facility]annHEMATOLOGY 2020-08-29 10:37:0018.8[facility] WaqxtjrBPFDEOZHJO9111-11-67 10:37:009.5[facility] BxbuoimVYDJMSOXGM3140-48-65 10:37:000.9[facility] ScpaoiqNNDGUSQIDE3182-95-18 10:37:000.3[facility] RkmuyxiHGQAYSDNMG5515-64-51 10:37:004.8[facility] YAFMVIMWVS1601-24-43 10:37:001.3[facility] KmeafhcEQSJCDRRJN1795-26-41 10:37:000.6 [facility] AbdfhgbXBFWMYSITH7803-49-22 10:37:000.1[facility]annHEMATOLOGY 2020-08-29 10:37:001+ *ABN*(08/29/20 5:37 AM)[facility] VvfjgckDALNJVBSKG1802-39-18 10:37:00Not Detected (08/29/20 5:37 AM)[facility]annBLOOD BANK RESULTS 2020-08-29 10:37:00Negative (08/29/20 5:37 AM)[facility] HermannCHEM SDHOU4131-37-05 10:37:10597Anctqosu HermannCHEM PSMES6112-31-19 10:37:0028[facility] HermannCHEM AIEOB2143-63-80 10:37:001.01[facility] HermannCHEM ZKVWN1629-85-29 10:37:69617 [facility]annCHE[facility] EMWNA2759-46-36 10:37:003.8[facility]annCHEM PANEL 2020-08-29 10:37:41193Dyetpqgt HermannCHEM LVLUW3156-06-18 10:37:0028[facility]annCHEM ULYBG0127-72-29 10:37:009.8[facility]annCHEM SXXDE9660-21-84 10:37:0011.8[facility]annCHEM HYMBN4287-47-24 10:37:0059[facility]annCHEM IAKDI5537-01-27 10:37:002.9[facility] FnyvfskKTQEMKXONZ7264-09-75 10:37:006.8 [facility] VwveqcpLIUXZRJKEO9157-18-78 10:37:004.47[facility] HermannHEMATOLOGY 2020-08-29 10:37:0010.6[facility] WhvylvpNDOZEGGERD4804-28-47 10:37:0034.0[facility] AkkardfTFHLXYFYXB5018-66-28 10:37:0076.1[facility] VbcqgxeLWVGAFYMCO6888-64-55 10:37:00 Test Item Value Reference Range Interpretation Comments MCH (test code = MCH) 23.8 pg 27.0-31.0 [facility] TtynowiAFBXANEEMG3409-72-12 10:37:0031.3[facility] HermannHEMATOLOGY 2020-08-29 10:37:0018.2[facility] GnmjgnhFGMWOPGSZN3844-66-69 10:37:47052Mywurvuw EvewzylOPOZVUPUZU6557-18-58 10:37:007.5[facility] WtpxgbxAMBHYNSTDI1758-32-42 10:37:00 Test Item Value Reference Range Interpretation Comments PT (test code = PT) 12.8 s 12.0-14.7 [facility] RfpqjpzFUWVHKEPIN2655-38-64 10:37:00 Test Item Value Reference Range Interpretation Comments INR (test code = INR) 0.97 1 0.85-1.17 [facility] CgzlifmKQLEJCKGFX5296-43-86 10:37:00 Test Item Value Reference Range Interpretation Comments PTT (test code = PTT) 25.0 s 22.9-35.8 [facility] BjlamtdCQVNXKEZIX4253-59-18 10:37:0070.5[facility]annHEMATOLOGY 2020-08-29 10:37:0018.8[facility] BwenborVIYXRKEODS7741-24-50 10:37:009.5[facility] OianrbsFCVPOQNJBL8857-81-42 10:37:000.9[facility] SujrkkaNNQLOIBVGV6006-33-05 10:37:000.3[facility] IelpxxsMSIFWIORHC2022-74-96 10:37:004.8[facility] JZLFBTFRQT9778-95-97 10:37:001.3[facility] ZaxcinyGZYRYLSCNV3977-84-12 10:37:000.6 [facility] UefgosySIBNMHVZFZ1141-40-40 10:37:000.1[facility]annHE[facility]OLOGY 2020-08-29 10:37:001+ *ABN*(08/29/20 5:37 AM)[facility] ApctynaYMGWTKNRXV4874-48-20 10:37:00Not Detected (08/29/20 5:37 AM)[facility] RESULTS 2020-08-29 10:37:00Negative (08/29/20 5:37 AM)[facility] HermannCHEM LLOPY4471-95-21 10:37:49607Zfqfmfor HermannCHEM HVPKB6079-34-31 10:37:0028[facility]annCHEM QSSLV7941-64-15 10:37:001.01[facility]annCHEM MTRQF2774-63-91 10:37:48571 [facility]annCHEM GKKGG0825-33-49 10:37:003.8[facility]annCHEM PANEL 2020-08-29 10:37:26690Iyqebpiy HermannCHEM LENYK8544-36-29 10:37:0028[facility]annCHEM YTCEN3020-50-88 10:37:009.8[facility] HermannCHEM MOUTZ2618-58-14 10:37:0011.8[facility]annCHEM ETBSQ0161-26-12 10:37:0059[facility]annCHEM XXURT6518-85-76 10:37:002.9[facility] XgyxevtGQYCXOOPDA5740-58-81 10:37:006.8 [facility] SzljtznHWVQNLFZAU3934-32-99 10:37:004.47[facility]annHEMATOLOGY 2020-08-29 10:37:0010.6[facility] ZogziubMPWKHTHHRZ7954-23-47 10:37:0034.0[facility] WnxoxklDESZJMLCDX2400-33-96 10:37:0076.1[facility] ZkvrlanICHUAURQLS9326-64-65 10:37:00 Test Item Value Reference Range Interpretation Comments MCH (test code = MCH) 23.8 pg 27.0-31.0 [facility] RtdfvmhECIIUHCWAO2519-69-65 10:37:0031.3[facility]annHEMATOLOGY 2020-08-29 10:37:0018.2[facility] RxqyrvpTLDXJLDYJB8192-71-25 10:37:44255Bvtiqeme DjovziiRHKLXUVFFP2541-71-70 10:37:007.5[facility] BxkfkrkGZYFCRCZOS0255-18-48 10:37:00 Test Item Value Reference Range Interpretation Comments PT (test code = PT) 12.8 s 12.0-14.7 [facility] JsogfglSSALVOBOND4103-43-51 10:37:00 Test Item Value Reference Range Interpretation Comments INR (test code = INR) 0.97 1 0.85-1.17 [facility] UthvqxkCSCCCSRTHR6685-20-64 10:37:00 Test Item Value Reference Range Interpretation Comments PTT (test code = PTT) 25.0 s 22.9-35.8 [facility] WafmwpoRSTRKWMFUR5918-43-06 10:37:0070.5[facility]annHEMATOLOGY 2020-08-29 10:37:0018.8[facility] LuzrxzvIMOJTCHJFG1180-99-94 10:37:009.5[facility] MgcuifqIYOMZJZGXA4979-95-05 10:37:000.9[facility] GbxbeasTMKDZUCZCJ4189-70-87 10:37:000.3[facility] LbibruuPFUUVTOYZO6333-14-16 10:37:004.8[facility] [place] HKWJEGBCEL9432-00-71 10:37:001.3[facility] LyqeutqMKOPBOVGNL4917-14-25 10:37:000.6 [facility] PjjbdoeRFVPOFBYAS5372-07-98 10:37:000.1[facility]annHEMATOLOGY 2020-08-29 10:37:001+ *ABN*(08/29/20 5:37 AM)[facility] ByxfpibLDPSMXOBMO9607-26-90 10:37:00Not Detected (08/29/20 5:37 AM)[facility] HermannCHLAMYDIA, GC, TV,PCR, IN TQOPX0605-44-79 15:38:00 Test Item Value Reference Range Interpretation Comments FT (test code = CHTR) Not detected (qualifier Not Detected N value) FT (test code = Not detected (qualifier Not Detected N NGONO) value) FT (test code = TRVG) Not detected (qualifier Not Detected N value) [facility] [id number] 10:57:00 Test Item Value Reference Range Interpretation Comments Color (test code = UCOLR) Dk. Yellow Clarity (test code = UCLAR) Hazy Glucose (test code = UGLUC) NEGATIVE NEGATIVE N Bilirubin (test code = UBILI) NEGATIVE NEGATIVE N Ketones (test code = UKET) NEGATIVE NEGATIVE N Specific [place] (test code = 1.025 1.005-1.030 A USPGR) [...] None Seen None Seen N URCRYS) [facility]"
--- NOTE | 2022-04-16 15:04 | RAD REPORT ---
EXAM DESCRIPTION: CT - Head C Spine Mpr Wo Con - 04/16/2022 2:25 pm CLINICAL HISTORY: Head and neck injury status post fall. Head and neck pain COMPARISON: January 2022 TECHNIQUE: Computed axial tomography of the head and cervical spine was obtained. Sagittal and coronal reconstruction was performed. All CT scans are performed using dose optimization technique as appropriate and may include automated exposure control or mA/KV adjustment according to patient size. FINDINGS: An intracranial bleed is not seen. Mild to moderate low-density areas within periventricul ar, deep and subcortical white matter may be ischemic changes secondary to small vessel disease The ventricles are normal in caliber. An extra-axial fluid collection is not noted.Fluid within the v isualized sinuses and mastoids is not seen A cervical fracture is not visualized. No dislocation is noted. Mild chronic anterior subluxation C5 on C6 IMPRESSION: No acute intracranial abnormality is seen. A cervical fracture is not visualized. If the patient continues to have symptoms to suggest intracra nial /spinal cord pathology then MRI would be recommended
--- NOTE | 2022-04-16 16:39 | ER ---
Nurse's Notes [facility] Name: Marjan Kolb Age: 67 yrs Sex: Female : 1955 Arrival Date: 04/16/2022 Time: 13:55 Bed DIS3 Private MD: Diagnosis: Contusion of unspecified part of head, initial encounter;Concussion without loss of consciousness Presentation: 04/16 14:09 Chief complaint: Patient states: "I fell from a stool while trying to change a light hb bulb and hit my head on the stool, my vision went blurry for a few minutes and now I feel really sleepy." Denies LOC/vomiting. Coronavirus screen: At this time, the client does not indicate any symptoms associated with coronavirus-19. Ebola Screen: No symptoms or risks identified at this time. Initial Sepsis Screen: Does the patient meet any 2 criteria? No. Patient's initial sepsis screen is negative. Does the patient have a suspected source of infection? No. Patient's initial sepsis screen is negative. Risk Assessment: Do you want to hurt yourself or someone else? Patient reports no desire to harm self or others. Onset of symptoms was April 16, 2022. 14:09 Method Of Arrival: Ambulatory hb 14:09 Acuity: BLAYNE 4 hb Historical: - Allergies: 14:11 Bactrim DS; hb 14:11 butorphanol tartrate; hb 14:11 Fentanyl; hb 14:11 Reglan; hb 14:11 Stadol; hb 14:11 sulfamethoxazole (bulk); hb 14:11 TRIMETHOPRIM; hb Vital Signs: 14:09 BP 174 / 88; Pulse 62; Resp 16; Temp 98.4; Pulse Ox 98% on R/A; Weight 77.11 kg; Height hb 5 ft. 4 in. (162.56 cm); Pain 10/10; 14:09 Body Mass Index 29.18 (77.11 kg, 162.56 cm) hb ED Course: 13:55 Patient arrived in ED. [id number] 14:11 Triage completed. hb 14:11 Arm band placed on. hb 14:15 Justus Neil PA is PHCP. cp 14:15 Justus Kolb MD is Attending Physician. cp 14:26 Head C Spine Mpr Wo Con In Process Unspecified. EDMS 17:06 Smirch, Sandra, RN is Primary Nurse. ss 17:07 No provider procedures requiring assistance completed. Patient did not have IV access ss during this emergency room visit. Administered Medications: 16:31 Not Given (-1 RASS score. Pt is resting, eyes closed. RR even and unlabored. CP ss notified.): morphine 2 mg IM once 16:58 Drug: Tylenol 1000 mg Route: PO; 16:58 Follow up: Response: Medication administered at discharge. Outcome: 16:39 Discharge ordered by MD. cp 17:07 Discharged to home awaiting for family member to pick her up 17:07 Condition: good 17:07 Instructed on discharge instructions, follow up and referral plans. 17:07 Patient left the ED. Signatures: Dispatcher [employer] EDVA Sandra Cadet RN RN Justus Neil PA PA cp Baxter, Heather, ASHLEY RN Karen Montiel [email or web address]
--- NOTE | 2022-04-16 16:40 | EDPHYS ---
Physician Documentation [facility] Name: Marjan Kolb Age: 67 yrs Sex: Female : 1955 Arrival Date: 04/16/2022 Time: 13:55 Bed DIS3 Private MD: ED Physician Justus Kolb HPI: 04/16 16:20 This 67 yrs old Female presents to ER via Ambulatory with complaints of Fall Injury, cp Head Injury Without LOC-Adult. 16:20 Details of fall: The patient fell from a height, stool. Onset: The symptoms/episode cp began/occurred today. Associated injuries: The patient sustained injury to the head, contusion, swelling, tenderness. 16:20 Patient reports fall while standing on stool to change light bulb causing her to strike cp head against stool. No reported LOC. Episode of blurry vision after fall. No vomiting. C/o headache and drowsiness. Historical: - Allergies: 14:11 Bactrim DS; hb 14:11 butorphanol tartrate; hb 14:11 Fentanyl; hb 14:11 Reglan; hb 14:11 Stadol; hb 14:11 sulfamethoxazole (bulk); hb 14:11 TRIMETHOPRIM; hb ROS: 16:30 Constitutional: Negative for body aches, chills, fever, poor PO intake. cp 16:30 Eyes: Positive for blurry vision, Negative for discharge, redness, vision loss. cp 16:30 ENT: Negative for drainage from ear(s), ear pain, sore throat, difficulty swallowing, difficulty handling secretions. 16:30 Neck: Negative for pain with movement, pain at rest, stiffness. 16:30 Cardiovascular: Negative for chest pain, edema, palpitations. 16:30 Respiratory: Negative for cough, shortness of breath, wheezing. 16:30 Abdomen/GI: Negative for abdominal pain, vomiting, diarrhea, constipation. 16:30 Back: Negative for pain at rest, pain with movement. 16:30 MS/extremity: Negative for injury or acute deformity, paresthesias. 16:30 Neuro: Positive for headache, Negative for altered mental status, loss of consciousness, weakness. 16:30 All other systems are negative. Exam: 16:33 Constitutional: The patient appears in no acute distress, alert, awake, cp non-diaphoretic, non-toxic, well developed, well nourished. 16:33 Head/face: Noted is tenderness, that is mild, of the left frontal area, left side of cp the back of head and right side of the back of head. 16:33 Eyes: Periorbital structures: appear normal, Pupils: equal, round, and reactive to light and accomodation, Extraocular movements: intact throughout, Conjunctiva: normal, no exudate, no injection, Sclera: no appreciated abnormality, Lids and lashes: appear normal, bilaterally. 16:33 ENT: External ear(s): are unremarkable, Ear canal(s): are normal, clear, TM's: dullness, bilaterally, Nose: is normal, Mouth: Lips: moist, Oral mucosa: moist, Posterior pharynx: Airway: no evidence of obstruction, patent. 16:33 Neck: C-spine: vertebral tenderness, is not appreciated, crepitus, is not appreciated, ROM/movement: is normal, is supple, without pain, no range of motions limitations. 16:33 Chest/axilla: Inspection: normal, Palpation: is normal, no crepitus, no tenderness. 16:33 Cardiovascular: Rate: normal, Rhythm: regular, Edema: is not appreciated, JVD: is not appreciated. 16:33 Respiratory: the patient does not display signs of respiratory distress, Respirations: normal, no use of accessory muscles, no retractions, labored breathing, is not present, Breath sounds: are clear throughout, no decreased breath sounds, no stridor, no wheezing. 16:33 Abdomen/GI: Inspection: abdomen appears normal, Palpation: abdomen is soft and non-tender, in all quadrants. 16:33 Back: pain, is absent, ROM is normal, vertebral tenderness, is not appreciated. 16:33 Musculoskeletal/extremity: Exam is negative for decreased range of motion, deformity, injury. 16:33 Neuro: Orientation: to person, place \T\ time. Mentation: is normal, Cerebellar function: is grossly normal, Motor: moves all fours, strength is normal, Sensation: no obvious gross deficits. Vital Signs: 14:09 BP 174 / 88; Pulse 62; Resp 16; Temp 98.4; Pulse Ox 98% on R/A; Weight 77.11 kg; Height hb 5 ft. 4 in. (162.56 cm); Pain 10/10; 14:09 Body Mass Index 29.18 (77.11 kg, 162.56 cm) hb MDM: 15:02 Patient medically screened. cp 16:00 Differential diagnosis: closed head injury, contusion, fracture, laceration, multiple cp trauma. 16:38 Data reviewed: vital signs, nurses notes, radiologic studies, CT scan. cp 16:38 Counseling: I had a detailed discussion with the patient and/or guardian regarding: the cp historical points, exam findings, and any diagnostic results supporting the discharge/admit diagnosis, radiology results, the need for outpatient follow up, a family practitioner, to return to the emergency department if symptoms worsen or persist or if there are any questions or concerns that arise at home. Special discussion: Based on the patient's history, exam and DX evaluation, there is no indication for emergent intervention or inpatient TX. It is understood by the patient/guardian that if the SXs persist or worsen they need to return immediately for re-evaluation. 04/16 14:26 Order name: Head C Spine Mpr Wo Con; Complete Time: 16:23 EDMS Administered Medications: 16:31 Not Given (-1 RASS score. Pt is resting, eyes closed. RR even and unlabored. CP ss notified.): morphine 2 mg IM once 16:58 Drug: Tylenol 1000 mg Route: PO; ss 16:58 Follow up: Response: Medication administered at discharge. ss Disposition Summary: 04/16/22 16:39 Discharge Ordered Location: Home cp Problem: new cp Symptoms: have improved cp Condition: Stable cp Diagnosis - Contusion of unspecified part of head, initial encounter cp - Concussion without loss of consciousness cp Followup: cp - With: Private Physician - When: 2 - 3 days - Reason: Recheck today's complaints Discharge Instructions: - Discharge Summary Sheet cp - Concussion, Adult cp - Facial or Scalp Contusion cp - Head Injury, Adult cp Forms: - Medication Reconciliation Form cp - Thank You Letter cp - Antibiotic Education cp - Prescription Opioid Use cp Signatures: Dispatcher [employer] EDMS Sandra Cadet RN RN Justus Herrera PA PA cp Tata Rivera RN RN Corrections: (The following items were deleted from the chart) 14: 14:22 Head C Spine Cap Wo Con ordered. EDMS EDMS
[2022-04-16] MEDS ORDERED: ACETAMINOPHEN 500 MG TAB ONE (16:57)
[2022-04-16 17:30] VITALS: BP 174/88; TEMP 98.4; O2SAT 98
== END 2022-04-16 17:07 | disposition home or self-care (01) ==
LOC: ER 13:50
DX: S06.0X0A Concussion without loss of consciousness, initial encounter (principal); S00.83XA Contusion of other part of head, initial encounter; W17.89XA Other fall from one level to another, initial encounter; Z88.1 Allergy status to other antibiotic agents; Z88.2 Allergy status to sulfonamides; Z88.8 Allergy status to other drugs, medicaments and biological substances
CPT/HCPCS: 70450; 72125; 99283

== ENCOUNTER 2022-04-18 22:47 | Emergency (ER) | payer OTHER ==
--- OUTSIDE RECORDS SUMMARY | 2022-04-18 23:03 | XMS REPORT | Continuity of Care Document ---
:[address] [facility] t Address [address] [place] [address] Care Team Providers Name Role Phone Urmila Rahman Primary Care Physician ELAN LIRA Attending Clinician Unavailable KINJAL, BEVERLY Attending Clinician Unavailable SANTIAGO CARDENAS Attending Clinician Unavailable UNKNOWN, ATTENDING Attending Clinician Unavailable Robbi Bal Attending Clinician Santiago Sanchez Attending Clinician [facility] Attending Clinician Unavailable Stevo RAMIREZ, Isaias Arredondo Attending Clinician Unavailable TOMY MARIE Attending Clinician Unavailable Reilly Means MD Attending Clinician Ofe Shields MD Attending Clinician Tomy Marie MD Attending Clinician Doctor Unassigned, [place] Attending Clinician Unavailable Bill COLES Attending Clinician Unavailable Bill Rose Attending Clinician CHARITY MCALLISTER Attending Clinician Unavailable Charity Mcallister MD Attending Clinician GADIEL KOEHLER Attending Clinician Unavailable Mike Lund Attending Clinician Unavailable NIKOLAI REEVES Attending Clinician Unavailable Eliseo Arce MD Attending Clinician Carol Ann IT BUSINESS SYSTEMS ANALYST, Sarai Lieberman Attending Clinician [phone] Ashly Pelletier MA Attending Clinician Unavailable Dagoberto Bass MD Attending Clinician [place] Evangelista Attending Clinician Lab, [facility] Pob I Attending Clinician Unavailable Monica Rodas MA Attending Clinician Unavailable Agustina Ortiz MA Attending Clinician Unavailable Rody Maguire RN Attending Clinician Unavailable Kirit Flood MD, V. Attending Clinician HEMATPOLIZ, BEVERLY Attending Clinician Unavailable Gloria Hinojosa Attending Clinician Michael Hagen RN Attending Clinician Unavailable Vani, [facility] Attending Clinician UnavailDO PORSHA Newell Attending Clinician Unavailable Gadiel Koehler MD Attending Clinician Eveline Hansen MD Attending Clinician Eladio [place] RN Attending Clinician Unavailable Leyda Willis Attending Clinician [phone] Stefanie Montalvo RN Attending Clinician Unavailable TOMY MARIE Admitting Clinician Unavailable Tomy Marie MD Admitting Clinician Bill COLES Admitting Clinician Unavailable Lele Rahman Admitting Clinician Unavailable Mike Lund Admitting Clinician Unavailable ELISEO ARCE Admitting Clinician Unavailable DO PORSHA STREETER Admitting Clinician Unavailable Payers Payer Name Policy Type Policy Number Effective Date Expiration Date S gabino [facility] [id number] 2012 STAR PLUS OON 00:00:00 [facility] [id number] 2019 DUAL COMPLETE HMO 00:00:00 [facility] [id number] 2019 PLUS 00:00:00 MEDICAID [facility] [id number] 2020 00:00:00 [facility] [id number] 2019 [facility] 00:00:00 [employer] MEDICARE ADV [id number] 2019 2019 00:00:00 00:00:00 Problems Condition Condition Condition Status Onset Resolution Last Treating Co mments Source Name Details Category Date Date Treatment Clinician Date Dyspnea, Dyspnea, Disease Active Unive rs unspecifie unspecifie 02-11 it y of d type d type 00:00: [address] Gastropare Gastropare Disease Active Overview : Methodi sis sis 4-[address] 00:[facility] note l might be different from the original. Added automatic ally from request for surgery [id number] Dysphagia Dysphagia Disease Active Overview: Methodi 4-[address] 00:00: [facility] 00 note l might be different from the original. 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 2020-10-15 Memoria PVI PVI 08-19 17:07:00 l ABLATION ABLATION 00:00: Patel n W/ CARTO / W/ CARTO / 00 GA / T GA / T Active 08/19/2020 [facility] Food Food Disease Active 2019-05 Methodi [...] 08 it y of disorder disorder 00:00: [place] [...] hoxazole 1-25 Clear 00:00: Garcia 00 [facility] trimetho DA Active [facility] prim 1-25 Clear 00:00: Garcia 00 [facility] codeine DA Active SV N/V [facility] 1-25 Clear 00:00: Garcia 00 [facility] Metoclop Propensi Active [place] ramide ty to [...] Date Stop Date Source Natural father Diabetes [facility] Natural father Other - see comments [facility] Natural [facility] Natural father [facility] Natural father [facility] Natural mother [facility] Social History Social Habit Start Date Stop Date Quantity Comments Source History SDOH [facility] Alcohol Frequency Hospita l History SDOH [facility] Std Drinks Hospit al History SDDC [facility] Tobacco use and 2022-02-11 2022-02-11 Former smokeless Uni versity of exposure 00:00:00 00:00:00 tobacco user [facility] [place] Tobacco Comment 2022-02-11 2022-02-11 Smokes approx 1-2 Un iversity of 00:00:00 00:00:00 cigarettes per [place] [facility] porfirio day when she Branch smokes Exposure to 2022-01-31 2022-02-10 Not sure [facility]-CoV-2 (event) 00:00:00 22:53:00 [facility] Alcohol intake 2020-12-08 2020-12-08 Current drinker Metho dist 00:00:00 00:00:00 of [facility] (finding) Cigarettes smoked 2020-09-05 2020-09-[address] current (pack per 00:00:00 [facility]00[facility] - Reported Cigarette 2020-09-05 2020-09-05 [facility] pack-years 00:00:00 00:00:00 Hospital Alcohol Comment 2016-09-23 2016-09-23 rare [facility] 00:00:00 00:00:00 Hospital History of tobacco 2011-09-29 User of smokeless University of use 00:00:00 tobacco [facility] Sex Assigned At [birth year] [facility] 00:[facility] 00:00:00 Smoking Status Start Date Stop Date Source Ex-smoker 2022-02-11 00:00:00 2022-02-11 00:00:00 [facility] Medications Ordered Filled Start Stop Current Ordering Indication Dosage Frequency Signature Comments Components Source Medication Medication Date Date Medication? Clinician (SIG) Name Name zoster 2021-05- Yes [id number] .5mL 0.5 mL by Univers vaccine, 0-14 10-15 9104 Intramuscu ity of recombinant 00:00: 04:59 lar route [place] (SHINGRIX, 00 :00 once now Medic al PF,) for 1 Branch injection dose. And repeat in 2-6 months hydralAZINE Yes 25mg Take 25 mg Univers (APRESOLINE 9- by mouth ity of ) 25 mg 19:28: daily. [place] tablet [address] [place] [address] lisinopril Yes 40mg Take 40 mg U [...] o f 1 mg tablet 19:28: at [place] [address] bedtime. Medical Branch traZODone 2-0 Yes 50mg Take 50 mg Un matt 100 mg 9-27 by mouth ity of tablet 19:28: at [place] [address] bedtime. Medical Branch hydralAZINE 2021-0 Yes 25mg [...] 100 mg 04 (two) Medical tablet times [place] daily. amLODIPine 2-0 Yes 10mg Take 10 mg U nivers (NORVASC) 9-27 by mouth ity of 10 mg 19:28: daily. [place] tablet 04 Medical Branch clonazePAM 2021-0 Yes 1mg Take 1 mg Un matt (KLONOPIN) 9-27 by mouth ity o f 1 mg tablet 19:28: at [place] [address] bedtime. Medical Branch traZODone 2-0 Yes 50mg Take 50 mg Un matt 100 mg 9-27 by mouth ity of tablet 19:28: at [place] [address] bedtime. Medical Branch hydralAZINE 2-0 Yes 25mg [...] o f 1 mg tablet 19:28: at [place] [address] bedtime. Medical Branch traZODone 2021-0 Yes 50mg Take 50 mg Un matt 100 mg 9-27 by mouth ity of tablet 19:28: at [place] [address] bedtime. Medical Branch hydralAZINE 2021-0 Yes 25mg [...] o f 1 mg tablet 19:28: at [place] [address] bedtime. Medical Branch traZODone 2-0 Yes 50mg Take 50 mg Un matt 100 mg 9-27 by mouth ity of tablet 19:28: at [place] [address] bedtime. Medical Branch hydralAZINE 2-0 Yes 25mg [...] o f 1 mg tablet 19:28: at [place] [address] bedtime. Medical Branch traZODone 2021-0 Yes 50mg Take 50 mg Un matt 100 mg 9-27 by mouth ity of tablet 19:28: at [place] [address] bedtime. Medical Branch hydralAZINE 2021-0 Yes 25mg [...] o f 1 mg tablet 19:28: at [place] [address] bedtime. Medical Branch traZODone 2-0 Yes 50mg Take 50 mg Un matt 100 mg 02-16 by mouth ity of tablet 19:28: at [place] 04 bedtime. Medical Branch cefpodoxime 2021- Yes [id number] 200mg Take 1 Univers 200 mg 02-16 tablet by ity of tablet 00:00: 04:59 mouth in [place] 00 :00 the Medical morning Branch and 1 tablet in the evening. Do all this for 3 days. cefpodoxime 0 2021- Yes [id number] 200mg Take 1 Univers 200 mg 02-16 tablet by ity of tablet 00:00: 04:59 mouth in [place] 00 :00 the Medical morning Branch and 1 tablet in the evening. Do all this for 3 days. haloperidol 2021- No 2mg 2 mg, Slow Univers lactate 02-15 IV Push, ity of (HALDOL) 09:00: 09:12 ONCE, 1 [place] injection 2 00 :00 dose, On Medi porfirio mg [facility] 02/15/22 at 0400, Routine hydroCHLORO 0 Yes 25mg 25 mg, Univ ers thiazide 9-25 Oral, ity of (ESIDRIX) 14:00: DAILY, [place] capsule 25 00 First dose Med ical mg on [place] Branch 02/14/22 at 0900, Until Discontinu ed, Routine butalbital- Yes 1{tbl} 1 tablet, [facility] acetaminoph 24 Oral, ity of en-caff 18:46: Q6HPRN, [place] (ESGIC) 06 Starting Medical 50-325-40 on Sat [...] of 2,000 mg in 17:00: 18:24 Piggyback, [place] NaCl 0.9% 00 :00 Q24H ABX, Medic [...] AT 1700, Medical First dose Branch on [facility] 02/11/22 at 1700, Until Discontinu ed, Routine aspirin 2021- No 325mg 325 mg, Unive rs E.C. 02-11 Oral, ity of (ECOTRIN) 21:33: 21:44 ONCE, 1 [place] tablet 325 00 :00 dose, On Medic al mg [facility] 02/11/22 at 1645, Routine nitroglycer Yes .4mg 0.4 mg, Uni vers in 02-11 Sublingual ity of (NITROSTAT) 21:31: , Q5MIN [place] sublingual 20 PRN, Medical tablet 0.4 Starting Branc h mg on [facility] 02/11/22 at 1631, Until Discontinu ed, [...] of (MYCOLOG) 19:00: dose on [place] cream [facility] 02/11/22 at Branch 1400, Until Discontinu ed, Routine busPIRone 0 Yes 30mg 30 mg, Univer s (BUSPAR) 02-11 Oral, BID, ity o f tablet 30 18:00: [place] dose [place] mg 00 on [facility] 02/11/22 at Branch 1300, Until Discontinu ed, Routine raltegravir 2022-0 Yes 400mg 400 mg, Un matt (ISENTRESS) 02-11 Oral, BID, it y of tablet 400 18:00: First dose [place] mg 00 on [facility] Medical 02/11/22 at Branch 1300, Until Discontinu ed, JOE metoprolol 2021-0 Yes 100mg 100 mg, Uni vers tartrate 02-11 Oral, BID, ity o f (LOPRESSOR) 18:00: First dose [place] tablet 100 00 on [facility] Medical mg 02/11/22 at Branch 1300, Until Discontinu ed, Routine lisinopriL 0 Yes 40mg 40 mg, Unive rs (PRINIVIL,Z 02-11 Oral, BID, it y of ESTRIL) 18:00: First dose [place] tablet 40 00 on [facility] Medical mg 02/11/22 at Branch 1300, Until Discontinu ed, Routine emtricitabi 0 Yes 1{tbl} 1 tablet, [facility] 02-11 Oral, ity of r alafen 18:00: DAILY, [place] (DESCOVY) 00 First dose Medi porfirio tablet 1 on [facility] tablet 02/11/22 at 1300, Until Discontinu ed, Routine ipratropium 0 Yes .5mg 0.5 mg, Uni vers (ATROVENT) 02-11 Inhalation ity of 0.02 % 17:57: , QIDPRN, [place] nebulizer 10 Starting Medica l solution on [facility] 0.5 mg 02/11/22 at 1257, Until Discontinu ed, Routine, Wheezing, Shortness of Breath amLODIPine 0 Yes 10mg 10 mg, Unive rs (NORVASC) 02-11 Oral, ity of tablet 10 17:30: DAILY, [place] mg 00 First dose Medical (after Branch last modificati on) on [facility] 02/11/22 at 1230, Until Discontinu ed, Routine hydrALAZINE 2021- No 25mg 25 mg, Uni vers (APRESOLINE 02-11 Oral, ity of ) tablet 25 17:30: 12:54 DAILY, [place] mg 00 :55 First dose Medical (after Branch last modificati on) on [facility] 02/11/22 at 1230, Until Discontinu ed, [...] Oral, ity of (TYLENOL 14:06: 17:37 Q6HPN, [place] #3) 300-30 19 :24 Starting Medic al mg tablet 1 on [place] Branch tablet 02/11/22 at 0906, Until Tue02/12/22 at 1237, Routine, Pain (scale 4-6) sennosides- 0 Yes 1{tbl} 1 tablet, Univers docusate 02-11 Oral, ity of sodium 14:06: QDAILYPRNMacon, [place] (SENOKOT-S) 09 Starting Medi porfirio 8.6-50 mg on [facility] Branch per tablet 02/11/22 at 1 tablet 0906, Until Discontinu ed, Routine, Constipati on ondansetron 0 Yes 4mg 4 mg, Slow Univers (ZOFRAN 02-11 IV Push, ity of (PF)) 14:05: Q6HPRNMacon, [place] injection 4 59 Starting Medi porfirio mg on [place] Branch 02/11/22 at 0905, Until Discontinu ed, Routine, Nausea and Vomiting (N/V) acetaminoph 2021-0 Yes 650mg 650 mg, Un matt en 02-11 Oral, ity of (TYLENOL) 14:04: Q6HPRNMacon, [place] tablet 650 37 Starting Medic al [...] ity of ) 25 mg 09:10: daily. [facility] Branch amLODIPine 0 Yes 10mg Take 10 mg U nivers (NORVASC) 02-11 by mouth ity of 10 mg 09:10: daily. [facility] 54 [facility] Branch piperacilli 2021- No 3.375g [...] of therapy: 72 hours iopamidol 2021- No [id number] 60mL 60 mL, Univers (ISOVUE 02-11 Intravenou [...] 00 :00 dose, On Medi porfirio mg [place] Branch 02/11/22 at 0300, JOE ondansetron 2021- [...] Branch 02/11/22 at 0015, JOE emtricitabi Yes [id number] Take one Univers ne-tenofovi 9-12 po daily ity of r alafen 00:00: [place] (DESCOVY) 00 Medical tablet Branch emtricitabi Yes [id number] Take one Univers ne-tenofovi 9-12 po daily ity of r alafen 00:00: [place] (DESCOVY) 00 Medical tablet Branch emtricitabi Yes [id number] Take one Univers ne-tenofovi 9-12 po daily ity of r alafen 00:00: [place] (DESCOVY) 00 Medical tablet Branch emtricitabi Yes [id number] Take one Univers ne-tenofovi 9-12 po daily ity of r alafen 00:00: [place] (DESCOVY) 00 Medical tablet Branch emtricitabi Yes [id number] Take one Univers ne-tenofovi 9-12 po daily ity of r alafen 00:00: [place] (DESCOVY) 00 Medical tablet Branch emtricitabi Yes [id number] Take one Univers ne-tenofovi 9-12 po daily ity of r alafen 00:00: [place] (DESCOVY) 00 Medical tablet Branch emtricitabi Yes [id number] Take one Univers ne-tenofovi 9-12 po daily ity of r alafen 00:00: [place] (DESCOVY) 00 Medical tablet Branch naproxen 2021-0 Yes [id number] 500mg Take 1 U nivers (NAPROSYN) 7-24 tablet by ity of 500 mg 00:00: mouth in [place] tablet 00 the Medical morning Branch and 1 tablet in the evening. Take with meals. methocarbam 2-0 Yes [id number] 500mg Take 1 Univers oL 500 mg 7-24 tablet by ity o f tablet 00:00: mouth 4 [place] 00 (four) Medical times Branch daily. naproxen 2021-0 Yes [id number] 500mg Take 1 U nivers (NAPROSYN) 7-24 tablet by ity of 500 mg 00:00: mouth in [place] tablet 00 the Medical morning Branch and 1 tablet in the evening. Take with meals. methocarbam 2021-0 Yes [id number] 500mg Take 1 Univers oL 500 mg 7-24 tablet by ity o f tablet 00:00: mouth 4 [place] 00 (four) Medical times Branch daily. naproxen 2021-0 Yes [id number] 500mg Take 1 U nivers (NAPROSYN) 7-24 tablet by ity of 500 mg 00:00: mouth in [place] tablet 00 the Medical morning Branch and 1 tablet in the evening. Take with meals. methocarbam 2021-0 Yes [id number] 500mg Take 1 Univers oL 500 mg 7-24 tablet by ity o f tablet 00:00: mouth 4 [place] 00 (four) Medical times Branch daily. esomeprazol 2021- No 40mg Take 40 mg Univers e (NEXIUM) 11-20 by mouth 2 it y of 40 mg 09:12: 00:00 (two) [place] capsule 03 :00 times Medical daily. Branch amiodarone 2021- No 100mg Take 100 U nivers 100 mg 11-20 mg by ity of tablet 09:11: 00:00 mouth [place] 57 :00 daily. Medical Branch apixaban 2021- No 5mg Take 5 mg Uni vers (ELIQUIS) 5 11-20 by mouth 2 i ty of mg tablet 09:11: 00:00 (two) [place] 35 :00 times Medical daily. Branch traZODONE No Take by [facility] ers (DESYREL) 11-20 mouth at ity o f 10 mg/mL 09:10: 00:00 bedtime. [place] oral 28 :00 Medical suspension Branch hydralAZINE Yes 25mg Take 25 mg Univers (APRESOLINE 11-20 by mouth ity of ) 25 mg 08:47: daily. [place] tablet 47 Medical Branch cephALEXin 2021- No [id number] 500mg Take 1 Univers (KEFLEX) 10-24 capsule [...] 7-10). Indication s: acute pain buPROPion Yes [id number] 150mg Take 1 U nivers XL 4-12 tablet by ity of (WELLBUTRIN 00:00: mouth [place] XL) 150 mg 00 daily. Medical 24 hr Branch tablet busPIRone Yes [id number] 30mg Take 1 Un matt 30 mg 4-12 tablet by ity of tablet 00:00: mouth 2 00 (two) Medical times Branch daily. SERTraline Yes [id number] 200mg Take 2 Univers 100 mg 4-12 tablets by ity of tablet 00:00: mouth [place] 00 daily. Medical Branch buPROPion Yes [id number] 150mg Take 1 U nivers XL 4-12 tablet by ity of (WELLBUTRIN 00:00: mouth [place] XL) 150 mg 00 daily. Medical 24 hr Branch tablet busPIRone Yes [id number] 30mg Take 1 Un matt 30 mg 4-12 tablet by ity of tablet 00:00: mouth 2 [place] 00 (two) Medical times Branch daily. SERTraline Yes [id number] 200mg Take 2 Univers 100 mg 4-12 tablets by ity of tablet 00:00: mouth [place] 00 daily. Medical Branch buPROPion 2021-0 Yes [id number] 150mg Take 1 U nivers XL 4-12 tablet by ity of (WELLBUTRIN 00:00: mouth [place] XL) 150 mg 00 daily. Medical 24 hr Branch tablet busPIRone 2021-0 Yes [id number] 30mg Take 1 Un matt 30 mg 4-12 tablet by ity of tablet 00:00: mouth 2 [place] 00 (two) Medical times Branch daily. SERTraline 2021-0 Yes [id number] 200mg Take 2 Univers 100 mg 4-12 tablets by ity of tablet 00:00: mouth [place] 00 daily. Medical Branch buPROPion 2021-0 Yes [id number] 150mg Take 1 U nivers XL 4-12 tablet by ity of (WELLBUTRIN 00:00: mouth [place] XL) 150 mg 00 daily. Medical 24 hr Branch tablet busPIRone 2021-0 Yes [id number] 30mg Take 1 Un matt 30 mg 4-12 tablet by ity of tablet 00:00: mouth 2 [place] 00 (two) Medical times Branch daily. SERTraline 2021-0 Yes [id number] 200mg Take 2 Univers 100 mg 4-12 tablets by ity of tablet 00:00: mouth [place] 00 daily. Medical Branch buPROPion 2021-0 Yes [id number] 150mg Take 1 U nivers XL 4-12 tablet by ity of (WELLBUTRIN 00:00: mouth [place] XL) 150 mg 00 daily. Medical 24 hr Branch tablet busPIRone 2021-0 Yes [id number] 30mg Take 1 Un matt 30 mg 4-12 tablet by ity of tablet 00:00: mouth 2 [place] 00 (two) Medical times Branch daily. SERTraline 2021-0 Yes [id number] 200mg Take 2 Univers 100 mg 4-12 tablets by ity of tablet 00:00: mouth [place] 00 daily. Medical Branch buPROPion 2021-0 Yes [id number] 150mg Take 1 U nivers XL 4-12 tablet by ity of (WELLBUTRIN 00:00: mouth [place] XL) 150 mg 00 daily. Medical 24 hr Branch tablet busPIRone 2021-0 Yes [id number] 30mg Take 1 Un matt 30 mg 4-12 tablet by ity of tablet 00:00: mouth 2 [place] 00 (two) Medical times Branch daily. SERTraline 2021-0 Yes [id number] 200mg Take 2 Univers 100 mg 4-12 tablets by ity of tablet 00:00: mouth [place] 00 daily. Medical Branch buPROPion 2021-0 Yes [id number] 150mg Take 1 U nivers XL 4-12 tablet by ity of (WELLBUTRIN 00:00: mouth [place] XL) 150 mg 00 daily. Medical 24 hr Branch tablet busPIRone 2021-0 Yes [id number] 30mg Take 1 Un matt 30 mg 4-12 tablet by ity of tablet 00:00: mouth 2 [place] 00 (two) Medical times Branch daily. SERTraline 2021-0 Yes [id number] 200mg Take 2 Univers 100 mg 4-12 tablets by ity of tablet 00:00: mouth [place] 00 daily. Medical Branch buPROPion 2021-0 Yes [id number] 150mg Take 1 U nivers XL 4-12 tablet by ity of (WELLBUTRIN 00:00: mouth [place] XL) 150 mg 00 daily. Medical 24 hr Branch tablet busPIRone 2021-0 Yes [id number] 30mg Take 1 Un matt 30 mg 4-12 tablet by ity of tablet 00:00: mouth 2 [place] 00 (two) Medical times Branch daily. SERTraline 2021-0 Yes [id number] 200mg Take 2 Univers 100 mg 4-12 tablets by ity of tablet 00:00: mouth [place] 00 daily. Medical Branch raltegravir 2021-0 Yes [id number] 400mg Take 1 Univers (ISENTRESS) 3-28 tablet by ity of 400 mg 00:00: mouth 2 [place] tablet 00 (two) Medical times Branch daily. raltegravir 2-0 Yes [id number] 400mg Take 1 Univers (ISENTRESS) 3-28 tablet by ity of 400 mg 00:00: mouth 2 [place] tablet 00 (two) Medical times Branch daily. raltegravir 2022-0 Yes [id number] 400mg Take 1 Univers (ISENTRESS) 3-28 tablet by ity of 400 mg 00:00: mouth 2 [place] tablet 00 (two) Medical times Branch daily. raltegravir 2022-0 Yes [id number] 400mg Take 1 Univers (ISENTRESS) 3-28 tablet by ity of 400 mg 00:00: mouth 2 [place] tablet 00 (two) Medical times Branch daily. raltegravir 2021-0 Yes [id number] 400mg Take 1 Univers (ISENTRESS) 3-28 tablet by ity of 400 mg 00:00: mouth 2 [place] tablet 00 (two) Medical times Branch daily. raltegravir 2021-0 Yes [id number] 400mg Take 1 Univers (ISENTRESS) 3-28 tablet by ity of 400 mg 00:00: mouth 2 [place] tablet 00 (two) Medical times Branch daily. raltegravir 2021-0 Yes [id number] 400mg Take 1 Univers (ISENTRESS) 3-28 tablet by ity of 400 mg 00:00: mouth 2 [place] tablet 00 (two) Medical times Branch daily. raltegravir 2021-0 Yes [id number] 400mg Take 1 Univers (ISENTRESS) 3-28 tablet by ity of 400 mg 00:00: mouth 2 [place] tablet 00 (two) Medical times Branch daily. LORazepam 1 2021- No [id number] 1mg Take 1 Univers mg tablet 3-21 [...] times a tablet day. emtricitabi 2021- No [id number] Take one Univers ne-tenofovi 1-20 09-12 po daily ity of r alafen 00:00: 00:00 [place] (DESCOVY) 00 :00 Medical tablet Branch metoprolol 0 Yes [id number] Take 1 [place] tartrate 7-26 tablet Health (Lopressor) 00:00: (100 mg 100 MG 00 total) by tablet mouth 2 (two) times a day AND 0.5 tablets (50 mg total) every night. metoprolol Yes [id number] Take 1 [place] tartrate 7-26 tablet Health (Lopressor) 00:00: (100 mg 100 MG 00 total) by tablet mouth 2 (two) times a day AND 0.5 tablets (50 mg total) every night. raltegravir Yes 400mg Q.5D Take 400 U T (Isentress) 7-23 mg by Health 400 MG 08:03: mouth 2 tablet 05 (two) times a day. amLODIPine Yes 10mg QD [...] (affected area in groin) hydrALAZINE Yes 50mg Q.[id number] Take 50 mg Methodi (APRESOLINE 7-19 [id number] mouth [address] ) 50 MG [...] area in groin) hydrALAZINE 0 Yes 50mg Q.[id number] Take 50 mg Methodi (APRESOLINE 7-19 [id number] [address] mouth 3 st ) 50 MG [...] (affected area in groin) hydrALAZINE Yes 50mg Q.[id number] Take 50 mg Methodi (APRESOLINE 7-19 [id number] [address] mouth 3 st ) 50 MG [...] (affected area in groin) hydrALAZINE Yes 50mg Q.[id number] Take 50 mg Methodi (APRESOLINE 7-19 [id number] [address] mouth 3 st ) 50 MG [...] area in groin) hydrALAZINE 0 Yes 50mg Q.[id number] Take 50 mg Methodi (APRESOLINE 7-19 [id number] [address] mouth 3 st ) 50 MG [...] (affected area in groin) hydrALAZINE Yes 50mg Q.[id number] Take 50 mg Methodi (APRESOLINE 7-19 [id number] [address] mouth 3 st ) 50 MG [...] (affected area in groin) hydrALAZINE Yes 50mg Q.[id number] Take 50 mg Methodi (APRESOLINE 7-19 [id number] [address] mouth 3 st ) 50 MG [...] area in groin) hydrALAZINE 0 Yes 50mg Q.[id number] Take 50 mg Methodi (APRESOLINE 7-19 [id number] [address] mouth 3 [address] ) 50 MG [...] area in groin) hydrALAZINE 0 Yes 50mg Q.[id number] Take 50 mg Methodi (APRESOLINE 7-[id number] mouth [address] ) 50 MG [...] (affected area in groin) hydrALAZINE Yes 50mg Q.[id number] Take 50 mg Methodi (APRESOLINE 7-19 [id number] by mouth 3 st ) 50 MG [...] area in groin) hydrALAZINE 0 Yes 50mg Q.[id number] Take 50 mg Methodi (APRESOLINE 7-19 [id number] by mouth 3 st ) 50 MG [...] area in groin) hydrALAZINE 2020-0 Yes 50mg Q.[id number] Take 50 mg Methodi (APRESOLINE 7-19 [id number] [address] mouth 3 [address] ) 50 MG [...] (affected area in groin) hydrALAZINE Yes 50mg Q.[id number] Take 50 mg Methodi (APRESOLINE 7-19 [id number] by mouth 3 st ) 50 MG [...] area in groin) hydrALAZINE 0 Yes 50mg Q.[id number] Take 50 mg Methodi (APRESOLINE 7-19 [id number] by mouth 3 st ) 50 MG [...] area in groin) hydrALAZINE 0 Yes 50mg Q.[id number] Take 50 mg Methodi (APRESOLINE 7-19 [id number] by mouth 3 st ) 50 MG [...] area in groin) hydrALAZINE 0 Yes 50mg Q.[id number] Take 50 mg Methodi (APRESOLINE 7-19 [id number] [address] mouth 3 st ) 50 MG [...] (affected area in groin) hydrALAZINE Yes 50mg Q.[id number] Take 50 mg Methodi (APRESOLINE 7-19 [id number] by mouth 3 st ) 50 MG [...] area in groin) hydrALAZINE 0 Yes 50mg [id number] Take 50 mg [facility] (APRESOLINE 7-19 [id number] by mouth 3 st ) 50 MG [...] 25 (two) l tablet times a day. nystatin-tr 2020-0 Yes [id number] Apply to [facility] iainolone 7-06 area(s) 3 ity of cream 00:00: (three) [place] 00 times Medical daily. Branch nystatin-tr 2020-0 Yes [id number] Apply to [facility] iainolone 7-06 area(s) 3 ity of cream 00:00: (three) [place] 00 times Medical daily. Branch nystatin-tr 202-0 Yes [id number] [facility] ity of cream 00:00: (three) [place] 00 times Medical daily. Branch nystatin-tr 1-0 Yes [id number] Apply to [facility] iainolone 7-06 area(s) 3 ity of cream 00:00: (three) [place] 00 times Medical daily. Branch nystatin-tr 1-0 Yes [id number] Apply to [facility] iainolone 7-06 area(s) 3 ity of cream 00:00: (three) [place] 00 times Medical daily. Branch nystatin-tr 2021-0 Yes [id number] Apply to [facility] iamcinolone 7-06 area(s) 3 ity of cream 00:00: (three) [place] 00 times Medical daily. Branch nystatin-tr 1-0 Yes [id number] Apply to [facility] iainolone 7-06 area(s) 3 ity of cream 00:00: (three) [place] 00 times Medical daily. Branch nystatin-tr 1-0 Yes [id number] Apply to [facility] iainolone 7-06 area(s) 3 ity of cream 00:00: (three) [place] 00 times Medical daily. Branch budesonide- 2020-0 202- No 1{puff} QD Inhale 1 [facility] formoteroL 6-25 06-[address] (SYMBICORT) 14:37: 00:00 morning. H ospita 160-4.5 02 :00 l mcg/actuati on inhaler hydrALAZINE 0 Yes [id number] 50mg [id number] Take 1 [facility] (Apresoline 6-11 [id number] tablet (50 Health ) 50 MG 00:00: 3D mg total) tablet 00 by mouth 3 (three) times a day. hydrALAZINE 0 Yes [id number] 50mg [id number] Take 1 [facility] (Apresoline 6-11 [id number] tablet (50 Health ) 50 MG 00:00: [...] 2021- No 200mg 200 mg. [facility] (Zoloft) 10-19- Health 100 MG 00:00: 00:00 tablet 00 :00 mupirocin Yes [facility] (Bactroban) 28 Health 2 % 00:00: ointment 00 mupirocin Yes [facility] (Bactroban) 528 Health 2 % 00:00: ointment 00 nystatin 2020- No [id number] Q.25D Take 5 mL [facility] (MYCOSTATIN 10-06 [...] ia 4-10 (Same as: l 14:00: Cordarone) [place] 00 Amlodipine No Notes: Memor ia 4-10 [...] ia 4-10 (Same as: l 14:00: Norvasc) [place] emtricitabi No Notes: Caesar lisa ne 200 MG / 4-10 (Same as: l tenofovir 14:00: Descovy) Herm ariel alafenamide 00 Non-formul 25 MG Oral nancy Tablet [Descovy] Sertraline No Notes: Memor ia 4-10 (Same as: l 14:00: Zoloft) [place] 00 pantoprazol No Notes: Caesar lisa e [...] ia 4-10 (Same as: l 14:00: Zoloft) [place] 00 pantoprazol No Notes: Caesar lisa e 4-10 Tablet l 14:00: should not [place] 00 be chewed or crushed. (Same as: [...] M emoria 4-10 interfere l 02:00: w/enteral [place] feeds - Take 1 hr before or [...] 0.9% 4-10 (Same as: l 02:00: BD [place] Posiflush) Eliquis No Notes: Memoria 4-10 Same as: l 02:00: Eliquis [place] Hydralazine No Notes: Caesar lisa Hydrochlori 4-10 (Same as: l de 50 MG 02:00: Apresoline Her mitchell Oral Tablet 00 ) May interfere w/enteral feedings Take With Food Sucralfate No Notes: May M emoria 4-10 interfere l 02:00: w/enteral [place] 00 feeds - Take 1 hr before or 2 hr after antacids, dairy pdt, meals & minerals - On empty stomach. For patients unable to swallow tablet, dissolve in 10mL - 30mL of water or juice and stir before giving. (Same As: Carafate) Saline No Notes: Memoria Flush 0.9% 4-10 (Same as: l 02:00: BD [place] Posiflush) Eliquis No Notes: Memoria 4-10 Same [...] 0.9% 4-10 (Same as: l 02:00: BD [place] Posiflush) Eliquis No Notes: Memoria 4-10 Same as: l 02:00: Eliquis [place] Hydralazine No Notes: Caesar lisa Hydrochlori 4-10 (Same as: l de 50 MG 02:00: Apresoline Her mitchell Oral Tablet 00 ) May interfere w/enteral feedings Take With Food Sucralfate No Notes: May M emoria 4-10 interfere l 02:00: w/enteral [place] 00 feeds - Take 1 hr before [...] Memoria 4-10 Same as: l 02:00: Eliquis [place] Hydralazine No Notes: Caesar lisa Hydrochlori 4-10 (Same as: l de 50 MG 02:00: Apresoline Her mitchell Oral Tablet 00 ) May interfere w/enteral feedings Take With Food Sucralfate No Notes: May M emoria 4-10 interfere l 02:00: w/enteral [place] 00 feeds - Take 1 hr before [...] M emoria 4-10 interfere l 02:00: w/enteral [place] 00 feeds - Take 1 hr before [...] not exceed l #3 00:12: 4gm/day of [place] acetaminop hen. (Same as: Tylenol with Codeine # 3) acetaminoph No Notes: Do M emoria en-codeine 4-10 not exceed l #3 00:12: 4gm/day of [place] acetaminop hen. (Same as: Tylenol with Codeine # 3) acetaminoph No Notes: Do M emoria en-codeine 4-10 not exceed l #3 00:12: 4gm/day of [place] acetaminop hen. (Same as: Tylenol with Codeine # 3) acetaminoph No Notes: Do M emoria en-codeine 4-10 not exceed l #3 00:12: 4gm/day of [place] 00 acetaminop hen. (Same as: Tylenol with [...] tartrate - tab, l 22:00: Route: PO, [place] 00 Drug form: TAB, BID, Dosing Weight [...] tartrate 4-09 tab, l 22:00: Route: PO, [place] 00 Drug form: TAB, BID, Dosing Weight [...] tartrate 4-09 tab, l 22:00: Route: PO, [place] 00 Drug form: TAB, BID, Dosing Weight 97.273, kg, Start date: 08/29/20 17:00:00 CDT, Duration: 30 day, Stop date: 09/28/20 9:00:00 CDT Raltegravir 2020-0 No 400 mg, 1 M emoria 400 MG Oral 4-09 tab, l Tablet 22:00: Route: PO, Sklyar nn [ISENTRESS] Drug form: TAB, BID, Dosing Weight 97.273, kg, Start date: 08/29/20 17:00:00 CDT, Duration: 30 day, Stop date: 09/28/20 9:00:00 CDT, 0 Buspirone 2020-0 No Notes: Memori a - (Same As: l 22:00: BuSpar) Lisinopril 1-0 No 40 mg, 1 Mem oria 4-09 tab, l 22:00: Route: PO, [place] 00 Drug form: TAB, BID, Dosing Weight [...] oria 4-09 tab, l 22:00: Route: PO, [place] Drug form: TAB, BID, Dosing Weight 97.273, kg, Start date: 08/29/20 17:00:00 CDT, Duration: 30 day, Stop date: 09/28/20 9:00:00 CDT metoprolol 1-0 No 100 mg, 1 Me moria tartrate 4-09 tab, l 22:00: Route: PO, [place] Drug form: TAB, BID, Dosing Weight 97.273, [...] tartrate 4-09 tab, l 22:00: Route: PO, [place] 00 Drug form: TAB, BID, Dosing Weight [...] Tablet 22:00: Route: PO, Syklar nn [ISENTRESS] 00 Drug form: TAB, BID, Dosing Weight 97.273, kg, Start date: 08/29/20 17:00:00 CDT, Duration: 30 day, Stop date: 09/28/20 9:00:00 CDT, 0 Morphine No Notes: Memoria 4-09 (Same l 17:07: as:MORPhin [place] 00 e Sulfate) Morphine No Notes: Memoria 4-09 (Same l 17:07: as:MORPhin [place] 00 e Sulfate) Morphine No Notes: Memoria [...] 30 tab, 0 coated Refill(s), tablet [facility], 162.56, cm, 08/29/20 5:30:00 CDT, [...] tab, PO, l oral 15:27: Daily, # [place] enteric 00 30 tab, 0 coated Refill(s), tablet Pharmacy: [facility], 162.56, cm, 08/29/20 5:30:00 CDT, Height, 97.273, kg, 08/29/20 5:30:00 CDT, Weight pantoprazol 2021-0 Yes 40 mg = 1 M emoria e 40 mg 4-09 tab, PO, l oral 15:27: Daily, # [place] enteric 00 30 tab, 0 coated Refill(s), tablet Pharmacy: [facility] 149, 162.56, cm, 08/29/20 5:30:00 CDT, Height, 97.273, kg, 08/29/20 5:30:00 CDT, Weight pantoprazol 2021-0 Yes 40 mg = 1 M emoria e 40 mg 4-09 tab, PO, l oral 15:27: Daily, # [place] enteric 00 30 tab, 0 coated Refill(s), tablet [facility]: [facility], 162.56, cm, 08/29/20 5:30:00 CDT, Height, 97.273, kg, 08/29/20 5:30:00 CDT, Weight pantoprazol 2021-0 Yes 40 mg = 1 M emoria e 40 mg 4-09 tab, PO, l oral 15:27: Daily, # [place] enteric 00 30 tab, 0 coated Refill(s), tablet Pharmacy: [facility] 149, 162.56, cm, 08/29/20 5:30:00 CDT, Height, 97.273, kg, 08/29/20 5:30:00 CDT, Weight pantoprazol 2020-0 No 40 mg = 1 M emoria e 40 mg 4-09 tab, PO, l oral 15:26: Daily, # [place] enteric 00 30 tab, 0 coated Refill(s) tablet sucralfate 2020-0 Yes 1 gm = 1 Mem oria 1 g oral 4-09 tab, PO, l tablet 15:26: Q12H, # 28 Skylar nn 00 tab, 0 Refill(s), Pharmacy: [place] [id number], 162.56, cm, 08/29/20 5:30:00 CDT, Height, 97.273, [...] Skylar nn 00 tab, 0 Refill(s), Pharmacy: [place] [id number], 162.56, cm, 08/29/20 5:30:00 CDT, Height, 97.273, [...] Skylar nn 00 tab, 0 Refill(s), Pharmacy: [place] [id number], 162.56, cm, 08/29/20 5:30:00 CDT, Height, 97.273, kg, 08/29/20 5:30:00 CDT, Weight pantoprazol 2020-0 No 40 mg = 1 M emoria e 40 mg 4-09 tab, PO, l oral 15:26: Daily, # [place] enteric 00 30 tab, 0 coated Refill(s) tablet sucralfate 2020-0 Yes 1 gm = 1 Mem oria 1 g oral 4-09 tab, PO, l tablet 15:26: Q12H, # 28 Skylar nn 00 tab, 0 Refill(s), Pharmacy: [place] [id number], 162.56, cm, 08/29/20 5:30:00 CDT, Height, 97.273, kg, 08/29/20 5:30:00 CDT, Weight pantoprazol 2020-0 No 40 mg = 1 M emoria e 40 mg 4-09 tab, PO, l oral 15:26: Daily, # [place] enteric 00 30 tab, 0 coated Refill(s) tablet sucralfate 2020-0 Yes 1 gm = 1 Mem oria 1 g oral 4-09 tab, PO, l tablet 15:26: Q12H, # 28 Skylar nn 00 tab, 0 Refill(s), Pharmacy: [place] [id number], 162.56, cm, 08/29/20 5:30:00 CDT, Height, 97.273, [...] 0.9% 4-09 (Same as: l 15:25: BD [place] 00 Posiflush) Lorazepam No Notes: Memori a 4-09 (Same as: l 15:25: Ativan) [place] Saline No Notes: Memoria Flush 0.9% 4-09 (Same as: l 15:25: BD [place] 00 Posiflush) Saline No Notes: Memoria Flush 0.9% 4-09 (Same as: l 15:25: BD [place] 00 Posiflush) Lorazepam No Notes: Memori a 4-09 (Same as: l 15:25: Ativan) [place] Lorazepam No Notes: Memori a 4-09 (Same as: l 15:25: Ativan) [place] Saline No Notes: Memoria Flush 0.9% 4-09 (Same as: l 15:25: BD [place] 00 Posiflush) Lorazepam No Notes: Memori a 4-09 (Same as: l 15:25: Ativan) [place] Saline No Notes: Memoria Flush 0.9% 4-09 (Same as: l 15:25: BD [place] 00 Posiflush) Lorazepam No Notes: Memori a [...] Memori a 08-29 Route: l 14:01: IVP, [place] 00 Q5Min, Dosing Weight 97.273, kg, PRN [...] oria ne 08-29 Route: l 14:01: IVP, [place] 00 Q5Min, Dosing Weight 97.273, kg, PRN [...] ia 08-29 Route: l 14:01: IVP, ONCE, [place] 00 Dosing Weight 97.273, kg, PRN Nausea [...] 08-29 Route: PO, l 14:01: Drug form: [place] 00 TAB, ONCE, Dosing Weight 97.273, kg, [...] lisa 08-29 Route: l 14:01: IVP, PRN, [place] Dosing Weight 97.273, kg, PRN Benzodiaze pine [...] 08-29 Route: PO, l 14:01: Drug form: [place] 00 TAB, ONCE, Dosing Weight 97.273, kg, [...] Memori a 08-29 Route: l 14:01: IVP, [place] 00 Q2MIN, Dosing Weight 97.273, kg, PRN [...] oria ne 08-29 Route: l 14:01: IVP, [place] 00 Q5Min, Dosing Weight 97.273, kg, PRN Pain Score 7-10, Start date: 08/29/20 9:01:00 CDT, Duration: 4 doses or times, Stop date: Limited # of times Labetalol 1-0 No 10 mg, Memori a 08-29 Route: l 14:01: IVP, [place] 00 Q5Min, Dosing Weight 97.273, kg, PRN [...] lisa 08-29 Route: l 14:01: IVP, PRN, [place] 00 Dosing Weight 97.273, kg, PRN Benzodiaze [...] lisa 08-29 Route: l 14:01: IVP, PRN, [place] 00 Dosing Weight 97.273, kg, PRN Benzodiaze [...] ia 08-29 Route: l 14:01: IVP, ONCE, [place] 00 Dosing Weight 97.273, kg, PRN Nausea [...] 08-29 Route: PO, l 14:01: Drug form: [place] 00 TAB, ONCE, Dosing Weight 97.273, kg, [...] oria ne 08-29 Route: l 14:01: IVP, [place] 00 Q5Min, Dosing Weight 97.273, kg, PRN [...] Memori a 08-29 Route: l 14:01: IVP, [place] 00 Q2MIN, Dosing Weight 97.273, kg, PRN Narcotic Reversal, Start date: 08/29/20 9:01:00 CDT, Duration: 8 doses or times, Stop date: Limited # of times Ondansetron No 4 mg, Memor ia 08-29 Route: l 14:01: IVP, ONCE, Dosing Weight 97.273, kg, PRN Nausea & Vomiting, Start date: 08/29/20 9:01:00 CDT rocuronium 2020-0 No Route: IV, M [...] Drug form: l 10 13:15: INJ, Start [place] microgram date: 08/29/20 8:15:00 CDT, Stop date: 08/29/20 9:15:00 CDT norepinephr 2020-0 No Route: IV, Memoria ine (ANES) 08-29 Drug form: l 10 13:15: INJ, Start [place] microgram date: 08/29/20 8:15:00 CDT, Stop date: 08/29/20 9:15:00 CDT norepinephr 2020-0 No Route: IV, Memoria ine (ANES) 08-29 Drug form: l 10 13:15: INJ, Start [place] microgram date: 08/29/20 8:15:00 CDT, Stop date: 08/29/20 9:15:00 CDT norepinephr 2020-0 No Route: IV, Memoria ine (ANES) 08-29 Drug form: l 10 13:15: INJ, Start [place] microgram date: 08/29/20 8:15:00 CDT, Stop date: 08/29/20 9:15:00 CDT norepinephr 2020-0 No Route: IV, Memoria ine (ANES) 08-29 Drug form: l 10 13:15: INJ, Start [place] microgram date: 08/29/20 8:15:00 CDT, Stop date: 08/29/20 9:15:00 CDT Sodium 2020-0 No Route: IV, Memor ia Chloride - Total l 0.9% IV 12:30: Volume: [place] (ANES) 1000 00 1,000, mL Start date: 08/29/20 7:30:00 CDT, Stop date: 08/29/20 8:30:00 CDT Sodium 1-0 No Route: IV, Memor ia Chloride - [...] 4-09 Total l 0.9% IV 12:30: Volume: [place] (ANES) 1000 00 1,000, mL Start date: 08/29/20 7:30:00 CDT, Stop date: 08/29/20 8:30:00 CDT Sodium 2021-0 No Route: IV, Memor ia Chloride 4-09 Total l 0.9% IV 12:30: Volume: [place] (ANES) 1000 00 1,000, mL Start date: 08/29/20 7:30:00 CDT, Stop date: 08/29/20 8:30:00 CDT Sodium 2021-0 No Route: IV, Memor ia Chloride 4-09 Total l 0.9% IV 12:30: Volume: [place] (ANES) 1000 00 1,000, mL Start date: [...] PO, l Hydrochlori 11:42: Q24H, # 30 [place] de 150 MG 00 tab, 0 Extended Refill(s) Release Tablet 24 HR 2020-0 Yes 150 mg = 1 Memori a Bupropion 4-09 tab, PO, l Hydrochlori 11:42: Q24H, # 30 [place] de 150 MG 00 tab, 0 Extended [...] 08-29 Q12H, tab, l Tablet 11:41: 0 [place] [Eliquis] 00 Refill(s), For Atrial Fibrilatio n apixaban 5 2020-0 Yes 5 mg, PO, Me moria MG Oral - Q12H, tab, l Tablet 11:41: 0 [place] [Eliquis] 00 Refill(s), For Atrial Fibrilatio n apixaban 5 2020-0 Yes 5 mg, PO, Me moria MG Oral 08-29 Q12H, tab, l Tablet 11:41: 0 [place] [Eliquis] 00 Refill(s), For Atrial Fibrilatio n apixaban 5 2020-0 Yes 5 mg, PO, Me moria MG Oral 4- Q12H, tab, l Tablet 11:41: 0 [place] [Eliquis] 00 Refill(s), For Atrial Fibrilatio n apixaban 5 2020-0 Yes 5 mg, PO, Me moria MG Oral 4- Q12H, tab, l Tablet 11:41: 0 [place] [Eliquis] 00 Refill(s), For Atrial Fibrilatio n AMIODarone 2020-0 Yes 200 mg = 1 M emoria 200 mg oral 4-09 tab, PO, l tablet 11:38: Daily, # [place] 00 90 tab, 3 Refill(s) AMIODarone 2020-0 Yes 200 mg = 1 M emoria 200 mg oral 4-09 tab, PO, l tablet 11:38: Daily, # [place] 00 90 tab, 3 Refill(s) AMIODarone 2020-0 Yes 200 mg = 1 M emoria 200 mg oral 4-09 tab, PO, l tablet 11:38: Daily, # [place] 00 90 tab, 3 Refill(s) AMIODarone 2020-0 [...] tab, PO, l tablet 11:38: Daily, # [place] 00 90 tab, 3 Refill(s) AMIODarone 2020-0 [...] 00:00: (Dyazide) 00 37.5-25 MG capsule Emtricitabi 2019- Yes [place] ne-Tenofovi 1-21 200 mg-25 [facility]a [facility] r AF 00:00: mg tablet (Descovy) 00 200-25 MG tablet Emtricitabi 2018- Yes Descovy [place] ne-Tenofovi 1-21 200 mg-25 [facility]a [facility] r AF 00:00: mg tablet (Descovy) 00 200-25 MG tablet sertraline 2018-0 Yes 200mg Q.5D Take 200 [facility] (Zoloft) [...] 00:00: [facility] daily. l ISENTRESS 20170 Yes 400mg Q.5D Take 400 [...] [facility] e Immunization Name Name SARS-COV-2 COVID-19 [...] [place] 65+ PFIZER COVID-19 2020-07-23 Completed [facility]:00:00 [facility] PFIZER COVID-19 2020-07-23 Completed [facility] VACC[facility] 00:00:00 [facility] PFIZER COVID-19 2020-07-23 Completed [facility] VACC[facility] 00:00:00 [facility] PFIZER COVID-19 2020-07-23 Completed [facility] VACC[facility] 00:00:00 [facility] PFIZER COVID-19 2020-07-23 Completed [facility] VACC[facility] 00:00:00 [facility] PFIZER COVID-19 2020-07-23 Completed [facility] VACC[facility] 00:00:00 [facility] PFIZER COVID-19 2020-07-23 Completed [facility] VACC[facility] 00:00:00 [facility] PFIZER COVID-19 2020-07-23 Completed [facility] VACC[facility] 00:00:00 [facility] PFIZER COVID-19 2020-07-23 Completed [facility] VACC[facility] 00:00:00 [facility] PFIZER COVID-19 2020-07-23 Completed [facility] VACC[facility] 00:00:00 [facility] PFIZER COVID-19 2020-07-23 Completed [facility] VACC[facility] 00:00:00 [facility] PFIZER COVID-19 2020-07-23 Completed [facility] VACC[facility] 00:00:00 [facility] PFIZER COVID-19 2020-07-23 Completed [facility] VACCIN[facility] 00:00:00 [facility] PFIZER COVID-19 2020-07-23 Completed [facility] VACCIN[facility] 00:00:00 [facility] PFIZER COVID-19 2020-07-23 Completed [facility] VACCINATION 00:00:00 [facility] PFIZER COVID-19 2020-07-23 Completed [facility] VACCINATION 00:00:00 [facility] PFIZER COVID-19 2020-07-23 Completed [facility] VACC[facility] 00:00:00 [facility] SARS-COV-2 COVID-19 2020-07-23 Completed [facility] PFIZER VACCINE 00:00:00 [facility] SARS-COV-2 COVID-19 2020-07-23 Completed [facility] of PFIZER VACCINE 00:00:00 [facility] SARS-COV-2 COVID-19 2020-07-23 Completed [facility] of PFIZER VACCINE 00:00:00 [facility] SARS-COV-2 COVID-19 2020-07-23 Completed [facility] of PFIZER VACCINE 00:00:00 [facility] PFIZER COVID-19 2020-07-23 Completed [facility] VACC[facility] 00:00:00 [facility] PFIZER COVID-19 2020-07-02 Completed [facility] VACCINATION 00:00:00 [facility] PFIZER COVID-19 2020-07-02 Completed [facility] VACC[facility] 00:00:00 [facility] PFIZER COVID-19 2020-07-02 Completed [facility] VACCIN[facility] 00:00:00 [facility] PFIZER COVID-19 2020-07-02 Completed [facility] VACCIN[facility] 00:00:00 [facility] PFIZER COVID-19 2020-07-02 Completed [facility] VACC[facility] 00:00:00 [facility] PFIZER COVID-19 2020-07-02 Completed [facility] VACC[facility] 00:00:00 [facility] PFIZER COVID-19 2020-07-02 Completed [facility] VACC[facility] 00:00:00 [facility] PFIZER COVID-19 2020-07-02 Completed [facility] VACCIN[facility] 00:00:00 [facility] PFIZER COVID-19 2020-07-02 Completed [facility] VACC[facility] 00:00:00 [facility] PFIZER COVID-19 2020-07-02 Completed [facility] VACC[facility] 00:00:00 [facility] PFIZER COVID-19 2020-07-02 Completed [facility] VACC[facility] 00:00:00 [facility] PFIZER COVID-19 2020-07-02 Completed [facility] VACCINATION 00:00:00 [facility] PFIZER COVID-19 2020-07-02 Completed [facility] VACC[facility] 00:00:00 [facility] PFIZER COVID-19 2020-07-02 Completed [facility] VACCINATION 00:00:00 [facility] PFIZER COVID-19 2020-07-02 Completed [facility] VACCINATION 00:00:00 [facility] PFIZER COVID-19 2020-07-02 Completed [facility] VACCINATION 00:00:00 [facility] PFIZER COVID-19 2020-07-02 Completed [facility] VACC[facility] 00:00:00 [facility] SARS-COV-2 COVID-19 2020-07-02 Completed [facility] PFIZER VACCINE 00:00:00 [facility] SARS-COV-2 COVID-19 2020-07-02 Completed [facility] of PFIZER VACCINE 00:00:00 [facility] SARS-COV-2 COVID-19 2020-07-02 Completed [facility] of PFIZER VACCINE 00:00:00 [facility] SARS-COV-2 COVID-19 2020-07-02 Completed [facility] of PFIZER VACCINE 00:00:00 [facility] PFIZER COVID-19 2020-07-02 Completed [facility] 00:00:00 [facility] Influenza Virus 2017-03-08 Completed [facility] Vaccine 00:00:00 [facility] Influenza Virus 2017-03-08 Completed [facility] Vaccine 00:00:00 [facility] Influenza Virus 2017-03-08 Completed [facility] of Vaccine 00:00:00 [facility] Influenza Virus 2017-03-08 Completed [facility] of Vaccine 00:00:00 [facility] Influenza Virus 2017-03-08 Completed [facility] of Vaccine 00:00:00 [facility] Influenza Virus 2017-03-08 Completed [facility] of Vaccine 00:00:00 [facility] Influenza Virus 2017-03-08 Completed [facility] of Vaccine 00:00:00 [facility] Influenza Virus 2017-03-08 Completed [facility] of Vaccine 00:00:00 [facility] Influenza Virus 2014-01-30 Completed [facility] (3+ yrs) [facility] 2014-01-30 Completed [facility] y of Conjugate, PCV13 00:00:00 [facility] dical (Prevnar 13) Branch Influenza Virus 2014-01-30 Completed [facility] Vaccine (3+ yrs) 00:[facility] 2014-01-30 Completed [facility]it y of Conjugate, PCV13 00:00:00 [facility] dical (Prevnar 13) Branch Influenza Virus 2014-01-30 Completed [facility] Vaccine (3+ yrs) 00:[facility] P[facility] 13 2014-01-30 Completed [facility]it y of Conjugate, PCV13 00:00:00 [facility] dical (Prevnar 13) Branch Influenza Virus 2014-01-30 Completed Universit y of Vaccine (3+ yrs) 00:00:00 [facility] dical Branch Pneumococcal 13 2014-01-30 Completed Universit y of Conjugate, PCV13 00:00:00 [facility] dical (Prevnar 13) Branch Influenza Virus 2014-01-30 Completed Universit y of Vaccine (3+ yrs) 00:00:00 [facility] dical Branch Pneumococcal 13 2014-01-30 Completed Universit y of Conjugate, PCV13 00:00:00 [facility] dical (Prevnar 13) Branch Influenza Virus 2014-01-30 Completed Universit y of Vaccine (3+ yrs) 00:00:00 [facility] dical Branch Pneumococcal 13 2014-01-30 Completed Universit y of Conjugate, PCV13 00:00:00 [facility] dical (Prevnar 13) Branch Influenza Virus 2014-01-30 Completed Universit y of Vaccine (3+ yrs) 00:00:00 [facility] dical Branch Pneumococcal 13 2014-01-30 Completed Universit y of Conjugate, PCV13 00:00:00 [facility] dical (Prevnar 13) Branch Influenza Virus 2014-01-30 Completed Universit y of Vaccine (3+ yrs) 00:00:00 [facility] dical Branch Pneumococcal 13 2014-01-30 Completed Universit y of Conjugate, PCV13 00:00:00 [facility] dical (Prevnar 13) Branch Pneumococcal 2012-02-16 Completed University o f Polysaccharide, 00:00:00 [place] [facility] PPSV23 (PNEUMOVAX) Branch Influenza Virus 2012-02-16 Completed Universit y of Vaccine 00:00:00 [facility] PPD (TB) 2012-02-16 Completed University of 00:00:00 [facility] Pneumococcal 2012-02-16 Completed University o f Polysaccharide, 00:00:00 [place] [facility] PPSV23 (PNEUMOVAX) Branch Influenza Virus 2012-02-16 Completed [facility]it y of Vaccine 00:00:00 [facility] PPD (TB) 2012-02-16 Completed University of 00:00:00 [facility] Pneumococcal 2012-02-16 Completed University o f Polysaccharide, 00:00:00 [place] [facility] PPSV23 (PNEUMOVAX) Branch Influenza Virus 2012-02-16 Completed [facility] of Vaccine 00:00:00 [facility] PPD (TB) 2012-02-16 Completed [facility] 00:00:00 [facility] Pneumococcal 2012-02-16 Completed [facility] o f Polysaccharide, 00:00:00 [facility] PPSV23 (PNEUMOVAX) Branch Influenza Virus 2012-02-16 Completed [facility] of Vaccine 00:00:00 [facility] PPD (TB) 2012-02-16 Completed [facility] 00:00:00 [facility] Pneumococcal 2012-02-16 Completed [facility] o f Polysaccharide, 00:00:00 [facility] PPSV23 (PNEUMOVAX) Branch Influenza Virus 2012-02-16 Completed [facility] Vaccine 00:00:00 [facility] PPD (TB) 2012-02-16 Completed [facility] 00:00:00 [facility] Pneumococcal 2012-02-16 Completed [facility] o f Polysaccharide, 00:00:00 [facility] PPSV23 (PNEUMOVAX) Branch Influenza Virus 2012-02-16 Completed Universit y of Vaccine 00:00:00 [facility] PPD (TB) 2012-02-16 Completed University of 00:00:00 [facility] Pneumococcal 2012-02-16 Completed University o f Polysaccharide, 00:00:00 [place] [facility] PPSV23 (PNEUMOVAX) Branch Influenza Virus 2012-02-16 Completed Universit y of Vaccine 00:00:00 [facility] PPD (TB) 2012-02-16 Completed University of 00:00:00 [facility] Pneumococcal 2012-02-16 Completed University o f Polysaccharide, 00:00:00 [place] [facility] PPSV23 (PNEUMOVAX) Branch Influenza Virus 2012-02-16 Completed Universit y of Vaccine 00:00:00 [facility] PPD (TB) 2012-02-16 Completed University of 00:00:00 [facility] Hep B, Adol or Pedi 2011-09-01 Completed Unive rsity of Dosage 00:00:00 [facility] Hep B, Adol or Pedi 2011-09-01 Completed Unive rsity of Dosage 00:00:00 [facility] Hep B, Adol or Pedi 2011-09-01 Completed Unive rsity of Dosage 00:00:00 [facility] Hep B, Adol or Pedi 2011-09-01 Completed Unive rsity of Dosage 00:00:00 [facility] Hep B, Adol or Pedi 2011-09-01 Completed Unive rsity of Dosage 00:00:00 [facility] Hep B, Adol or Pedi 2011-09-01 Completed Unive rsity of Dosage 00:00:00 [facility] Hep B, Adol or Pedi 2011-09-01 Completed Unive rsity of Dosage 00:00:00 [facility] Hep B, Adol or Pedi 2011-09-01 Completed Unive rsity of Dosage 00:00:00 [facility] Hep B, Adol or Pedi 2011-03-17 Completed Unive rsity of Dosage 00:00:00 [facility] Hep B, Adol or Pedi 2011-03-17 Completed Unive rsity of Dosage 00:00:00 [facility] Hep B, Adol or Pedi 2011-03-17 Completed Unive rsity of Dosage 00:00:00 [facility] Hep B, Adol or Pedi 2011-03-17 Completed Unive rsity of Dosage 00:00:00 [facility] Hep B, Adol or Pedi 2011-03-17 Completed Unive rsity of Dosage 00:00:00 [facility] Hep B, Adol or Pedi 2011-03-17 Completed Unive rsity of Dosage 00:00:00 [facility] Hep B, Adol or Pedi 2011-03-17 Completed Unive rsity of Dosage 00:00:00 [facility] Hep B, Adol or Pedi 2011-03-17 Completed Unive rsity of Dosage 00:00:00 [facility] Influenza Virus 2011-02-10 Completed Universit [facility] of Vaccine 00:00:00 [facility] Hep B, Adol or Pedi 2011-02-10 Completed Unive rsity of Dosage 00:00:00 [facility] Influenza Virus 2011-02-10 Completed Universit [facility] of Vaccine 00:00:00 [facility] Hep B, Adol or Pedi 2011-02-10 Completed Unive rsity of Dosage 00:00:00 [facility] Influenza Virus 2011-02-10 Completed Universit y of Vaccine 00:00:00 [facility] Hep B, Adol or Pedi 2011-02-10 Completed Unive rsity of Dosage 00:00:00 [facility] Influenza Virus 2011-02-10 Completed Universit [facility] of Vaccine 00:00:00 [facility] Hep B, Adol or Pedi 2011-02-10 Completed Unive rsity of Dosage 00:00:00 [facility] Influenza Virus 2011-02-10 Completed Universit [facility] of Vaccine 00:00:00 [facility] Hep B, Adol or Pedi 2011-02-10 Completed Unive rsity of Dosage 00:00:00 [facility] Influenza Virus 2011-02-10 Completed Universit y of Vaccine 00:00:00 [facility] Hep B, Adol or Pedi 2011-02-10 Completed Unive rsity of Dosage 00:00:00 [facility] Influenza Virus 2011-02-10 Completed Universit [facility] of Vaccine 00:00:00 [facility] Hep B, Adol or Pedi 2011-02-10 Completed Unive rsity of Dosage 00:00:00 [facility] Influenza Virus 2011-02-10 Completed Universit [facility] of Vaccine 00:00:00 [facility] Hep B, Adol or Pedi 2011-02-10 Completed Unive rsity of Dosage 00:00:00 [facility] PPD (TB) 2010-11-18 Completed University of 00:00:00 [facility] TDAP (ADACEL) 2010-11-18 Completed University of VACCINE 00:00:00 [facility] PPD (TB) 2010-11-18 Completed University of 00:00:00 [facility] TDAP (ADACEL) 2010-11-18 Completed University of VACCINE 00:00:00 [facility] PPD (TB) 2010-11-18 Completed University of 00:00:00 [facility] TDAP (ADACEL) 2010-11-18 Completed University of VACCINE 00:00:00 [facility] PPD (TB) 2010-11-18 Completed University of 00:00:00 [facility] TDAP (ADACEL) 2010-11-18 Completed University of VACCINE 00:00:00 [facility] PPD (TB) 2010-11-18 Completed University of 00:00:00 [facility] TDAP (ADACEL) 2010-11-18 Completed University of VACCINE 00:00:00 [facility] PPD (TB) 2010-11-18 Completed University of 00:00:00 [facility] TDAP (ADACEL) 2010-11-18 Completed University of VACCINE 00:00:00 [facility] PPD (TB) 2010-11-18 Completed University of 00:00:00 [facility] TDAP (ADACEL) 2010-11-18 Completed University of VACCINE 00:00:00 [facility] PPD (TB) 2010-11-18 Completed University of 00:00:00 [facility] TDAP (ADACEL) 2010-11-18 Completed University of VACCINE 00:00:00 [facility] HEPATITIS A 2004-03-02 Completed University of 00:00:00 [facility] HEPATITIS A 2004-03-02 Completed University of 00:00:00 [facility] HEPATITIS A 2004-03-02 Completed University of 00:00:00 [facility] HEPATITIS A 2004-03-02 Completed University of 00:00:00 [facility] HEPATITIS A 2004-03-02 Completed University of 00:00:00 [facility] HEPATITIS A 2004-03-02 Completed University of 00:00:00 [facility] HEPATITIS A 2004-03-02 Completed University of 00:00:00 [facility] HEPATITIS A 2004-03-02 Completed University of 00:00:00 [facility] HEPATITIS A 2003-08-01 Completed University of 00:00:00 [facility] HEPATITIS A 2003-08-01 Completed University of 00:00:00 [facility] HEPATITIS A 2003-08-01 Completed University of 00:00:00 [facility] HEPATITIS A 2003-08-01 Completed University of 00:00:00 [facility] HEPATITIS A 2003-08-01 Completed University of 00:00:00 [facility] HEPATITIS A 2003-08-01 Completed University of 00:00:00 [facility] HEPATITIS A 2003-08-01 Completed University of 00:00:00 [facility] HEPATITIS A 2003-08-01 Completed University of 00:00:00 [facility] Pneumococcal 2001-10-04 Completed University o f Polysaccharide, 00:00:00 [place] [facility] PPSV23 (PNEUMOVAX) Branch PPD (TB) 2001-10-04 Completed University of 00:00:00 [facility] Pneumococcal 2001-10-04 Completed University o f Polysaccharide, 00:00:00 [place] [facility] PPSV23 (PNEUMOVAX) Branch PPD (TB) 2001-10-04 Completed University of 00:00:00 [facility] Pneumococcal 2001-10-04 Completed University o f Polysaccharide, 00:00:00 [place] [facility] PPSV23 (PNEUMOVAX) Branch PPD (TB) 2001-10-04 Completed University of 00:00:00 [facility] Pneumococcal 2001-10-04 Completed University o f Polysaccharide, 00:00:00 [place] [facility] PPSV23 (PNEUMOVAX) Branch PPD (TB) 2001-10-04 Completed University of 00:00:00 [facility] Pneumococcal 2001-10-04 Completed [facility] o f Polysaccharide, 00:00:00 [place] [facility] PPSV23 (PNEUMOVAX) Branch PPD (TB) 2001-10-04 Completed University of 00:00:00 [facility] Pneumococcal 2001-10-04 Completed University o f Polysaccharide, 00:00:00 [place] [facility] PPSV23 (PNEUMOVAX) Branch PPD (TB) 2001-10-04 Completed University of 00:00:00 [facility] Pneumococcal 2001-10-04 Completed University o f Polysaccharide, 00:00:00 [place] [facility] PPSV23 (PNEUMOVAX) Branch PPD (TB) 2001-10-04 Completed [facility] of 00:00:00 [facility] Pneumococcal 2001-10-04 Completed [place] o f Polysaccharide, 00:00:00 [place] [facility] PPSV23 (PNEUMOVAX) Branch PPD (TB) 2001-10-04 Completed [facility] 00:00:00 [facility] Vital Signs Vital Name Observation Time Observation Value Comments Source Systolic blood 2022-02-16 21:41:00 169 mm[Hg] Univer sity of pressure [facility] Diastolic blood 2022-02-16 21:41:00 86 mm[Hg] Unive rsity of pressure [facility] Heart rate 2022-02-16 21:41:00 51 /min Universi ty of [facility] Body temperature 2022-02-16 21:41:00 36.56 Amina [facility] ersity of [facility] Respiratory rate 2022-02-16 21:41:00 17 /min [facility] Oxygen saturation in 2022-02-16 21:41:00 98 /min [facility] Arterial blood by [facility] Pulse oximetry Branch Body height 2022-02-11 16:02:00 162.6 cm [facility] [place] [facility] Body weight 2022-02-11 16:02:00 79.379 kg Universi ty of [facility] BMI 2022-02-11 16:02:00 30.04 kg/m2 Universi ty of [facility] Systolic blood 2021-11-20 13:47:00 165 mm[Hg] Univer sity of pressure [facility] Diastolic blood 2021-11-20 13:47:00 83 mm[Hg] Unive rsity of pressure [facility] Heart rate 2021-11-20 13:47:00 58 /min [facility] [place] [facility] Body temperature 2021-11-20 13:42:00 36.39 Amina Univ ersity of [facility] Respiratory rate 2021-11-20 13:42:00 16 /min Univ ersity of [facility] Body height 2021-11-20 13:42:00 162.6 cm [facility] [place] [facility] Body weight 2021-11-20 13:42:00 84.369 kg [facility] [place] [facility] BMI 2021-11-20 13:42:00 31.93 kg/m2 [facility]i ty of [facility] Systolic blood 2021-07-14 15:18:00 142 mm[facility]Hg[facility] Diastolic blood 2021-07-14 15:18:00 76 mm[facility]Hg[facility] Heart rate 2021-07-14 15:18:00 61 [facility] 2021-07-14 15:18:00 [facility] 2021-07-14 15:18:00 94.802 [facility] 2021-07-14 15:18:00 35.87 kg/m2 [facility] Systolic blood 2022-03-05 15:23:00 167 mm[Hg] Univer sity of pressure [facility] Diastolic blood 2022-03-05 15:23:00 105 mm[Hg] [facility] Heart rate 2022-03-05 15:23:00 49 /min [facility] Body temperature 2022-03-05 15:18:00 36.67 Amina [facility] 2022-03-05 15:18:00 18 /min [facility] Body height 2022-03-05 15:18:00 162.6 cm [facility] Body weight 2022-03-05 15:18:00 74.707 kg [facility] BMI 2022-03-05 15:18:00 28.27 kg/m2 [facility] Oxygen saturation in 2022-02-16 21:41:00 98 /min University Arterial blood by [facility] Pulse oximetry Branch Systolic blood 2020-12-08 15:48:00 125 mm[Hg] Method [facility] pressure Diastolic blood 2020-12-08 15:48:00 76 mm[Hg] [facility] pressure Heart rate 2020-12-08 15:48:00 64 /min [facility] Body temperature 2020-12-08 15:48:00 36.61 Amina [facility] Respiratory rate 2020-12-08 15:48:00 17 /min [facility] Body height 2020-12-08 15:48:00 162.6 cm [facility] Body weight 2020-12-08 15:48:00 98.884 kg [facility] BMI 2020-12-08 15:48:00 37.42 kg/m2 [facility] Oxygen saturation in 2020-12-08 15:48:00 97 /min [facility] Arterial blood by Pulse oximetry Respitory Rate 2020-08-30 13:00:00 Memori al [facility] Systolic (mm Hg) 2020-08-30 13:00:00 Caesar rial [facility] Diastolic (mm Hg) 2020-08-30 13:00:00 Mem orial [place] Systolic (mm Hg) 2020-08-30 11:00:00 Caesar rial [facility] Diastolic (mm Hg) 2020-08-30 11:00:00 Mem orial [facility] Temperature Oral (F) 2020-08-30 11:00:00 98.4 F [facility] [place] Respitory Rate 2020-08-30 11:00:00 [facility] Respitory Rate 2020-08-30 10:00:00 Memori [facility] [place] Systolic (mm Hg) 2020-08-30 10:00:00 Caesar rial [facility] Diastolic (mm Hg) 2020-08-30 10:00:00 Mem orial [place] Temperature Oral (F) 2020-08-30 00:00:00 96.9 F [facility] [place] Temperature Oral (F) 2020-08-29 11:26:00 97.6 F [facility] Height 2020-08-29 10:30:00 162.56 cm [facility] Weight 2020-08-29 10:30:00 [facility] BMI Calculated 2020-08-29 10:30:00 Darien Fernandezann Procedures Procedure Date / Time Performing Clinician Source Performed SARS-COV-2 COVID-19 2022-03-05 16:09:27 [facility] DIMITRIS-SUCROSE VACCINE 12 [facility] Branch YRS+, BIVALENT 0.3ML, IM, (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) FLU 2022-03-05 16:09:27 [facility] VACC(),65+YR,0.5 Medica l Branch ML,IM,ADJUVANTED,QUAD(FLUA D) MAGNESIUM 2022-02-15 09:41:00 Sofia Garcia [facility] BASIC METABOLIC PANEL (NA, 2022-02-15 09:41:00 Sofia Garcia [facility] K, CL, CO2, GLUCOSE, BUN, Medica l Branch CREATININE, CA) CBC WITH DIFF 2022-02-15 09:41:00 Sofia Garcia [facility] N-TERMINAL PRO-BNP 2022-02-15 09:41:00 Sofia Garcia [facility] CBC WITH DIFF 2022-02-15 09:41:00 Sofia Garcia [facility] BASIC METABOLIC PANEL (NA, 2022-02-15 09:41:00 Sofia Garcia [facility] K, CL, CO2, GLUCOSE, BUN, Medica l Branch CREATININE, CA) MAGNESIUM 2022-02-15 09:41:00 Sofia Garcia [facility] N-TERMINAL PRO-BNP 2022-02-15 09:41:00 Sofia Garcia [facility] BASIC METABOLIC PANEL (NA, 2022-02-13 09:40:00 Sofia Garcia [facility] K, CL, CO2, GLUCOSE, BUN, Medica l Branch CREATININE, CA) CBC WITH DIFF 2022-02-13 09:40:00 Radha Sofia [facility] BASIC METABOLIC PANEL (NA, 2022-02-13 09:40:00 Sofia Garcia [facility] K, CL, CO2, GLUCOSE, BUN, Medica l Branch CREATININE, CA) CBC WITH DIFF 2022-02-13 09:40:00 Sofia Garcia [facility] TROPONIN I 2022-02-11 23:41:00 Sofia Garcia [facility] N-TERMINAL PRO-BNP 2022-02-11 23:41:00 Sofia Garcia [facility] TROPONIN I 2022-02-11 23:41:00 Sofia Garcia [facility] N-TERMINAL PRO-BNP 2022-02-11 23:41:00 Sofia Garcia [facility] HB ECG ROUTINE & RHYTHM 2022-02-11 22:15:36 Sofia Garcia [facility] TRANSTHORACIC ECHO (TTE) 2022-02-11 21:26:50 [facility] 2022-02-11 21:26:50 [facility]EL[facility] 2022-02-11 07:45:43 Reilly Means [facility] CONTRAST [facility] ABDOMEN PELVIS W 2022-02-11 07:45:43 Reilly Means [facility] CONTRAST [facility] RAPID INFLUENZA A/B 2022-02-11 06:54:00 Reilly Means [facility] RAPID INFLUENZA A/B 2022-02-11 06:54:00 Reilly Means [facility] URINALYSIS 2022-02-11 06:45:00 Reilly Means [facility] URINE CULTURE 2022-02-11 06:45:00 Reilly Means [facility] URINALYSIS 2022-02-11 06:45:00 Reilly Means [facility] URINE CULTURE 2022-02-11 06:45:00 Reilly Means [facility] HB ECG ROUTINE & RHYTHM 2022-02-11 05:22:08 Reilly Means [facility] HB ECG ROUTINE & RHYTHM 2022-02-11 05:22:08 Reilly Means [facility] BLOOD CULTURE SCREEN 2022-02-11 04:58:00 Reilly Means [facility] TROPONIN I 2022-02-11 04:58:00 Reilly Means [facility] COMP. METABOLIC PANEL 2022-02-11 04:58:00 Reilly Means [facility] ([id number]) [facility] CBC WITH DIFF 2022-02-11 04:58:00 Reilly Means [facility] PROTHROMBIN TIME / INR 2022-02-11 04:58:00 Reilly Means [facility] ACTIVATED PARTIAL THRMPLAS 2022-02-11 04:58:00 Reilly Means [facility] N-TERMINAL PRO-BNP 2022-02-11 04:58:00 Reilly Means [facility] LACTIC ACID WHOLE BLOOD 2022-02-11 04:58:00 Reilly Means [facility] COVID-19 (ID NOW RAPID 2022-02-11 04:58:00 Reilly Means [facility] TESTING) Medical Branch LAB ONLY COVID 2022-02-11 04:58:[address] [facility] CBC WITH DIFF 2022-02-11 04:58:00 Reilly Means [facility] ACTIVATED PARTIAL THRMPLAS 2022-02-11 04:58:00 Reilly Means [facility] PROTHROMBIN TIME / INR 2022-02-11 04:58:00 Reilly Means [facility] COVID-19 (ID NOW RAPID 2022-02-11 04:58:00 Reilly Means [facility] TESTING) Medical Branch COMP. METABOLIC PANEL 2022-02-11 04:58:00 Reilly Means [facility] ([id number]) Medical Branch TROPONIN I 2022-02-11 04:58:00 Reilly Means [facility] N-TERMINAL PRO-BNP 2022-02-11 04:58:00 Reilly Means [facility] BLOOD CULTURE SCREEN 2022-02-11 04:58:00 Reilly Means [facility] LACTIC ACID WHOLE BLOOD 2022-02-11 04:58:00 Reilly Means [facility] LAB ONLY COVID 2022-02-11 04:58:[address] [facility] XR CHEST 1 VW 2022-02-11 04:27:42 Miguelangel Reilly [facility] XR CHEST 1 VW 2022-02-11 04:27:42 Reilly Means [facility] HOSPITAL ADMISSION 2022-02-10 05:01:00 Doctor Unassigned, [facility] Name [facility] HOSPITAL ADMISSION 2022-02-10 05:01:00 Doctor Unassigned, [facility] Name [facility] ECG 12-LEAD 2021-07-14 15:14:00 Elan Lira [facility] [id number] 2021-06-17 00:00:00 RIKY Freedman [facility] GASTROINTESTINAL PANEL 2020-12-08 22:21:00 JailynEliseo [facility] XR ABDOMEN 1 VW 2020-12-08 18:06:32 Eliseo Arce spital OR [place] < 1 HOUR 2020-09-05 22:39:00 Eliseo Arce spital SURGICAL PATHOLOGY REQUEST 2020-09-05 21:54:00 Eliseo Arce [facility] XR CHEST 1 VW PORTABLE 2020-09-05 19:55:00 Eliseo Arce [facility] DISCHARGE PATIENT 2020-09-05 17:27:55 Lucas Harris [facility] CA AN ELECTIVE 2020-09-05 16:47:23 [facility]GD, INTRAOPERATIVE 2020-09-05 16:27:00 Eliseo [facility]ce [facility] PARTIAL THROMBOPLASTIN 2020-09-05 15:04:00 Sarai Maharaj [facility] TIME (PTT) M. PROTHROMBIN TIME WITH INR 2020-09-05 15:04:00 Mindy Maharaj [facility] M. Plan of Care Planned Activity Planned Date Details Comments Source Future Scheduled 2022-03-25 SHINGLES VACCINES (1 Met [facility] Test 14:48:42 of 2) [code = SHINGLES VACCINES (1 of 2)] Future Scheduled 2022-03-25 BREAST CANCER [facility] Test 14:48:42 SCREENING [code = BREAST CANCER SCREENING] Future Scheduled 2022-03-25 COLONOSCOPY SCREENING [facility] Test 14:48:42 [code = COLONOSCOPY SCREENING] Future Scheduled 2022-03-25 HEPATITIS B VACCINES Met [facility] Test 14:48:42 (1 of 3 - Risk 3-dose series) [code = HEPATITIS B VACCINES (1 of 3 - Risk 3-dose series)] Future Scheduled 2022-03-25 COVID-19 VACCINE (3 - [facility] Test 14:48:42 Booster for Pfizer series) [code = COVID-19 VACCINE (3 - Booster for Pfizer series)] Future Scheduled 2022-03-25 65+ PNEUMOCOCCAL [facility] Test 14:48:42 VACCINE (4 - PPSV23 if available, else PCV20) [code = 65+ PNEUMOCOCCAL VACCINE (4 - PPSV23 if available, else PCV20)] Future Scheduled 2022-03-25 INFLUENZA VACCINE [facility] Test 14:48:42 [code = INFLUENZA VACCINE] Future Scheduled 2022-03-25 SHINGLES VACCINES (1 Met [facility] Test 14:48:42 of 2) [code = SHINGLES VACCINES (1 of 2)] Future Scheduled 2022-03-25 BREAST CANCER [facility] Test 14:48:42 SCREENING [code = BREAST CANCER SCREENING] Future Scheduled 2022-03-25 COLONOSCOPY SCREENING [facility] Test 14:48:42 [code = COLONOSCOPY SCREENING] Future Scheduled 2022-03-25 HEPATITIS B VACCINES Met [facility] Test 14:48:42 (1 of 3 - Risk 3-dose series) [code = HEPATITIS B VACCINES (1 of 3 - Risk 3-dose series)] Future Scheduled 2022-03-25 COVID-19 VACCINE (3 - Me [facility] Test 14:48:42 Booster for Pfizer series) [code = COVID-19 VACCINE (3 - Booster for Pfizer series)] Future Scheduled 2022-03-25 65+ [facility] 14:48:42 VACCINE (4 - PPSV23 if available, else PCV20) [code = 65+ PNEUMOCOCCAL VACCINE (4 - PPSV23 if available, else PCV20)] Future Scheduled 2022-03-25 INFLUENZA VACCINE Method [facility] Test 14:48:42 [code = INFLUENZA VACCINE] Future Scheduled 2022-03-25 SHINGLES VACCINES (1 Met [facility] Test 14:48:42 of 2) [code = SHINGLES VACCINES (1 of 2)] Future Scheduled 2022-03-25 BREAST CANCER [facility] Test 14:48:42 SCREENING [code = BREAST CANCER SCREENING] Future Scheduled 2022-03-25 COLONOSCOPY SCREENING [facility] Test 14:48:42 [code = COLONOSCOPY SCREENING] Future Scheduled 2022-03-25 HEPATITIS B VACCINES Met [facility] Test 14:48:42 (1 of 3 - Risk 3-dose series) [code = HEPATITIS B VACCINES (1 of 3 - Risk 3-dose series)] Future Scheduled 2022-03-25 COVID-19 VACCINE (3 - Me [facility] Test 14:48:42 Booster for Pfizer series) [code = COVID-19 VACCINE (3 - Booster for Pfizer series)] Future Scheduled 2022-03-25 65+ PNEUMOCOCCAL [facility] Test 14:48:42 VACCINE (4 - PPSV23 if available, else PCV20) [code = 65+ PNEUMOCOCCAL VACCINE (4 - PPSV23 if available, else PCV20)] Future Scheduled 2022-03-25 INFLUENZA VACCINE Method [facility] Test 14:48:42 [code = INFLUENZA VACCINE] Future Scheduled 2022-03-25 SHINGLES VACCINES (1 Met [facility] Test 14:48:42 of 2) [code = SHINGLES VACCINES (1 of 2)] Future Scheduled 2022-03-25 BREAST CANCER [facility] Test 14:48:42 SCREENING [code = BREAST CANCER SCREENING] Future Scheduled 2022-03-25 COLONOSCOPY SCREENING [facility] Test 14:48:42 [code = COLONOSCOPY SCREENING] Future Scheduled 2022-03-25 HEPATITIS B VACCINES Met [facility] Test 14:48:42 (1 of 3 - Risk 3-dose series) [code = HEPATITIS B VACCINES (1 of 3 - Risk 3-dose series)] Future Scheduled 2022-03-25 COVID-19 VACCINE (3 - [facility] Test 14:48:42 Booster for Pfizer series) [code = COVID-19 VACCINE (3 - Booster for Pfizer series)] Future Scheduled 2022-03-25 65+ PNEUMOCOCCAL [facility] Test 14:48:42 VACCINE (4 - PPSV23 if available, else PCV20) [code = 65+ PNEUMOCOCCAL VACCINE (4 - PPSV23 if available, else PCV20)] Future Scheduled 2022-03-25 INFLUENZA VACCINE Method [facility] Test 14:48:42 [code = INFLUENZA VACCINE] Future Scheduled 2022-03-25 SHINGLES VACCINES (1 Met [facility] Test 14:48:42 of 2) [code = SHINGLES VACCINES (1 of 2)] Future Scheduled 2022-03-25 BREAST CANCER [facility] Test 14:48:42 SCREENING [code = BREAST CANCER SCREENING] Future Scheduled 2022-03-25 COLONOSCOPY SCREENING [facility] Test 14:48:42 [code = COLONOSCOPY SCREENING] Future Scheduled 2022-03-25 HEPATITIS B VACCINES Met [facility] Test 14:48:42 (1 of 3 - Risk 3-dose series) [code = HEPATITIS B VACCINES (1 of 3 - Risk 3-dose series)] Future Scheduled 2022-03-25 COVID-19 VACCINE (3 - Me [facility] Test 14:48:42 Booster for Pfizer series) [code = COVID-19 VACCINE (3 - Booster for Pfizer series)] Future Scheduled 2022-03-25 65+ [facility] 14:48:42 VACCINE (4 - PPSV23 if available, else PCV20) [code = 65+ PNEUMOCOCCAL VACCINE (4 - PPSV23 if available, else PCV20)] Future Scheduled 2022-03-25 INFLUENZA VACCINE [facility] Test 14:48:42 [code = INFLUENZA VACCINE] Future Scheduled 2022-03-04 SHINGLES VACCINES (1 Met [facility] Test 14:03:57 of 2) [code = SHINGLES VACCINES (1 of 2)] Future Scheduled 2022-03-04 BREAST CANCER [facility] Test 14:03:57 SCREENING [code = BREAST CANCER SCREENING] Future Scheduled 2022-03-04 COLONOSCOPY SCREENING [facility] Test 14:03:57 [code = COLONOSCOPY SCREENING] Future Scheduled 2022-03-04 HEPATITIS B VACCINES Met [facility] Test 14:03:57 (1 of 3 - Risk 3-dose series) [code = HEPATITIS B VACCINES (1 of 3 - Risk 3-dose series)] Future Scheduled 2022-03-04 COVID-19 VACCINE (3 - [facility] Test 14:03:57 Booster for Pfizer series) [code = COVID-19 VACCINE (3 - Booster for Pfizer series)] Future Scheduled 2022-03-04 65+ PNEUMOCOCCAL [facility] Test 14:03:57 VACCINE (4 - PPSV23 if available, else PCV20) [code = 65+ PNEUMOCOCCAL VACCINE (4 - PPSV23 if available, else PCV20)] Future Scheduled 2022-03-04 INFLUENZA VACCINE Method [facility] Test 14:03:57 [code = INFLUENZA VACCINE] Future Scheduled 2022-03-04 SHINGLES VACCINES (1 Met [facility] Test 14:03:57 of 2) [code = SHINGLES VACCINES (1 of 2)] Future Scheduled 2022-03-04 BREAST CANCER [facility] Test 14:03:57 SCREENING [code = BREAST CANCER SCREENING] Future Scheduled 2022-03-04 COLONOSCOPY SCREENING [facility] Test 14:03:57 [code = COLONOSCOPY SCREENING] Future Scheduled 2022-03-04 HEPATITIS B VACCINES Met [facility] Test 14:03:57 (1 of 3 - Risk 3-dose series) [code = HEPATITIS B VACCINES (1 of 3 - Risk 3-dose series)] Future Scheduled 2022-03-04 COVID-19 VACCINE (3 - [facility] Test 14:03:57 Booster for Pfizer series) [code = COVID-19 VACCINE (3 - Booster for Pfizer series)] Future Scheduled 2022-03-04 65+ [facility] 14:03:57 VACCINE (4 - PPSV23 if available, else PCV20) [code = 65+ PNEUMOCOCCAL VACCINE (4 - PPSV23 if available, else PCV20)] Future Scheduled 2022-03-04 INFLUENZA VACCINE [facility] Test 14:03:57 [code = INFLUENZA VACCINE] Future Scheduled 2022-03-04 SHINGLES VACCINES (1 Met [facility] Test 14:03:57 of 2) [code = SHINGLES VACCINES (1 of 2)] Future Scheduled 2022-03-04 BREAST CANCER [facility] Test 14:03:57 SCREENING [code = BREAST CANCER SCREENING] Future Scheduled 2022-03-04 COLONOSCOPY SCREENING [facility] Test 14:03:57 [code = COLONOSCOPY SCREENING] Future Scheduled 2022-03-04 HEPATITIS B VACCINES Met [facility] Test 14:03:57 (1 of 3 - Risk 3-dose series) [code = HEPATITIS B VACCINES (1 of 3 - Risk 3-dose series)] Future Scheduled 2022-03-04 COVID-19 VACCINE (3 - [facility] Test 14:03:57 Booster for Pfizer series) [code = COVID-19 VACCINE (3 - Booster for Pfizer series)] Future Scheduled 2022-03-04 65+ [facility] 14:03:57 VACCINE (4 - PPSV23 if available, else PCV20) [code = 65+ PNEUMOCOCCAL VACCINE (4 - PPSV23 if available, else PCV20)] Future Scheduled 2022-03-04 INFLUENZA VACCINE [facility] Test 14:03:57 [code = INFLUENZA VACCINE] Future Scheduled 2022-03-04 SHINGLES VACCINES (1 Met [facility] Test 14:03:57 of 2) [code = SHINGLES VACCINES (1 of 2)] Future Scheduled 2022-03-04 BREAST CANCER [facility] Test 14:03:57 SCREENING [code = BREAST CANCER SCREENING] Future Scheduled 2022-03-04 COLONOSCOPY SCREENING [facility] Test 14:03:57 [code = COLONOSCOPY SCREENING] Future Scheduled 2022-03-04 HEPATITIS B VACCINES Met [facility] Test 14:03:57 (1 of 3 - Risk 3-dose series) [code = HEPATITIS B VACCINES (1 of 3 - Risk 3-dose series)] Future Scheduled 2022-03-04 COVID-19 VACCINE (3 - [facility] Test 14:03:57 Booster for Pfizer series) [code = COVID-19 VACCINE (3 - Booster for Pfizer series)] Future Scheduled 2022-03-04 65+ [facility] 14:03:57 VACCINE (4 - PPSV23 if available, else PCV20) [code = 65+ PNEUMOCOCCAL VACCINE (4 - PPSV23 if available, else PCV20)] Future Scheduled 2022-03-04 INFLUENZA VACCINE Method [facility] Test 14:03:57 [code = INFLUENZA VACCINE] Future Scheduled 2022-02-11 SHINGLES VACCINES (1 Met [facility] Test 13:39:12 of 2) [code = SHINGLES VACCINES (1 of 2)] Future Scheduled 2022-02-11 BREAST CANCER [facility] Test 13:39:12 SCREENING [code = BREAST CANCER SCREENING] Future Scheduled 2022-02-11 COLONOSCOPY SCREENING [facility] Test 13:39:12 [code = COLONOSCOPY SCREENING] Future Scheduled 2022-02-11 HEPATITIS B VACCINES Met [facility] Test 13:39:12 (1 of 3 - Risk 3-dose series) [code = HEPATITIS B VACCINES (1 of 3 - Risk 3-dose series)] Future Scheduled 2022-02-11 COVID-19 VACCINE (3 - Me [facility] Test 13:39:12 Booster for Pfizer series) [code = COVID-19 VACCINE (3 - Booster for Pfizer series)] Future Scheduled 2022-02-11 65+ [facility] 13:39:12 VACCINE (4 - PPSV23 or PCV20) [code = 65+ PNEUMOCOCCAL VACCINE (4 - PPSV23 or PCV20)] Future Scheduled 2022-02-11 INFLUENZA VACCINE Method [facility] Test 13:39:12 [code = INFLUENZA VACCINE] Future Scheduled 2022-01-29 SHINGLES VACCINES (1 Met [facility] Test 14:07:20 of 2) [code = SHINGLES VACCINES (1 of 2)] Future Scheduled 2022-01-29 BREAST CANCER [facility] Test 14:07:20 SCREENING [code = BREAST CANCER SCREENING] Future Scheduled 2022-01-29 COLONOSCOPY SCREENING [facility] Test 14:07:20 [code = COLONOSCOPY SCREENING] Future Scheduled 2022-01-29 HEPATITIS B VACCINES Met [facility] Test 14:07:20 (1 of 3 - Risk 3-dose series) [code = HEPATITIS B VACCINES (1 of 3 - Risk 3-dose series)] Future Scheduled 2022-01-29 COVID-19 VACCINE (3 - [facility] Test 14:07:20 Booster for Pfizer series) [code = COVID-19 VACCINE (3 - Booster for Pfizer series)] Future Scheduled 2022-01-29 65+ PNEUMOCOCCAL [facility] Test 14:07:20 VACCINE (4 - PPSV23 or PCV20) [code = 65+ PNEUMOCOCCAL VACCINE (4 - PPSV23 or PCV20)] Future Scheduled 2022-01-29 INFLUENZA VACCINE Method [facility] Test 14:07:20 [code = INFLUENZA VACCINE] Future Scheduled 2022-01-29 SHINGLES VACCINES (1 Met [facility] Test 14:07:20 of 2) [code = SHINGLES VACCINES (1 of 2)] Future Scheduled 2022-01-29 BREAST CANCER [facility] Test 14:07:20 SCREENING [code = BREAST CANCER SCREENING] Future Scheduled 2022-01-29 COLONOSCOPY SCREENING [facility] Test 14:07:20 [code = COLONOSCOPY SCREENING] Future Scheduled 2022-01-29 HEPATITIS B VACCINES Met [facility] Test 14:07:20 (1 of 3 - Risk 3-dose series) [code = HEPATITIS B VACCINES (1 of 3 - Risk 3-dose series)] Future Scheduled 2022-01-29 COVID-19 VACCINE (3 - [facility] Test 14:07:20 Booster for Pfizer series) [code = COVID-19 VACCINE (3 - Booster for Pfizer series)] Future Scheduled 2022-01-29 65+ [facility] 14:07:20 VACCINE (4 - PPSV23 or PCV20) [code = 65+ PNEUMOCOCCAL VACCINE (4 - PPSV23 or PCV20)] Future Scheduled 2022-01-29 INFLUENZA VACCINE Method [facility] Test 14:07:20 [code = INFLUENZA VACCINE] Future Scheduled 2022-01-29 SHINGLES VACCINES (1 Met [facility] Test 14:07:20 of 2) [code = SHINGLES VACCINES (1 of 2)] Future Scheduled 2022-01-29 BREAST CANCER [facility] Test 14:07:20 SCREENING [code = BREAST CANCER SCREENING] Future Scheduled 2022-01-29 COLONOSCOPY SCREENING [facility] Test 14:07:20 [code = COLONOSCOPY SCREENING] Future Scheduled 2022-01-29 HEPATITIS B VACCINES Met [facility] Test 14:07:20 (1 of 3 - Risk 3-dose series) [code = HEPATITIS B VACCINES (1 of 3 - Risk 3-dose series)] Future Scheduled 2022-01-29 COVID-19 VACCINE (3 - [facility] Test 14:07:20 Booster for Pfizer series) [code = COVID-19 VACCINE (3 - Booster for Pfizer series)] Future Scheduled 2022-01-29 65+ [facility] 14:07:20 VACCINE (4 - PPSV23 or PCV20) [code = 65+ PNEUMOCOCCAL VACCINE (4 - PPSV23 or PCV20)] Future Scheduled 2022-01-29 INFLUENZA VACCINE Method [facility] Test 14:07:20 [code = INFLUENZA VACCINE] Future Scheduled 2022-01-29 SHINGLES VACCINES (1 Met [facility] Test 14:07:20 of 2) [code = SHINGLES VACCINES (1 of 2)] Future Scheduled 2022-01-29 BREAST CANCER [facility] Test 14:07:20 SCREENING [code = BREAST CANCER SCREENING] Future Scheduled 2022-01-29 COLONOSCOPY SCREENING [facility] Test 14:07:20 [code = COLONOSCOPY SCREENING] Future Scheduled 2022-01-29 HEPATITIS B VACCINES Met [facility] Test 14:07:20 (1 of 3 - Risk 3-dose series) [code = HEPATITIS B VACCINES (1 of 3 - Risk 3-dose series)] Future Scheduled 2022-01-29 COVID-19 VACCINE (3 - [facility] Test 14:07:20 Booster for Pfizer series) [code = COVID-19 VACCINE (3 - Booster for Pfizer series)] Future Scheduled 2022-01-29 65+ PNEUMOCOCCAL [facility] Test 14:07:20 VACCINE (4 - PPSV23 or PCV20) [code = 65+ PNEUMOCOCCAL VACCINE (4 - PPSV23 or PCV20)] Future Scheduled 2022-01-29 INFLUENZA VACCINE Method [facility] Test 14:07:20 [code = INFLUENZA VACCINE] Future Scheduled 2022-01-20 SHINGLES VACCINES (1 Met [facility] Test 06:12:34 of 2) [code = SHINGLES VACCINES (1 of 2)] Future Scheduled 2022-01-20 Screening for [facility] Test 06:12:34 malignant neoplasm of cervix (procedure) [code = [id number]] Future Scheduled 2022-01-20 BREAST CANCER [facility] Test 06:12:34 SCREENING [code = BREAST CANCER SCREENING] Future Scheduled 2022-01-20 COLONOSCOPY SCREENING [facility] Test 06:12:34 [code = COLONOSCOPY SCREENING] Future Scheduled 2022-01-20 HEPATITIS B VACCINES Met [facility] Test 06:12:34 (1 of 3 - Risk 3-dose series) [code = HEPATITIS B VACCINES (1 of 3 - Risk 3-dose series)] Future Scheduled 2022-01-20 COVID-19 VACCINE (3 - [facility] Test 06:12:34 Booster for Pfizer series) [code = COVID-19 VACCINE (3 - Booster for Pfizer series)] Future Scheduled 2022-01-20 65+ PNEUMOCOCCAL [facility] Test 06:12:34 VACCINE (4 - PPSV23 or PCV20) [code = 65+ PNEUMOCOCCAL VACCINE (4 - PPSV23 or PCV20)] Future Scheduled 2022-01-20 INFLUENZA VACCINE Method [facility] Test 06:12:34 [code = INFLUENZA VACCINE] Future Scheduled 2022-01-16 SHINGLES VACCINES (1 Met [facility] Test 12:09:25 of 2) [code = SHINGLES VACCINES (1 of 2)] Future Scheduled 2022-01-16 Screening for [facility] Test 12:09:25 malignant neoplasm of cervix (procedure) [code = [id number]] Future Scheduled 2022-01-16 BREAST CANCER [facility] Test 12:09:25 SCREENING [code = BREAST CANCER SCREENING] Future Scheduled 2022-01-16 COLONOSCOPY SCREENING [facility] Test 12:09:25 [code = COLONOSCOPY SCREENING] Future Scheduled 2022-01-16 HEPATITIS B VACCINES Met [facility] Test 12:09:25 (1 of 3 - Risk 3-dose series) [code = HEPATITIS B VACCINES (1 of 3 - Risk 3-dose series)] Future Scheduled 2022-01-16 COVID-19 VACCINE (3 - [facility] Test 12:09:25 Booster for Pfizer series) [code = COVID-19 VACCINE (3 - Booster for Pfizer series)] Future Scheduled 2022-01-16 65+ PNEUMOCOCCAL [facility] Test 12:09:25 VACCINE (4 - PPSV23 or PCV20) [code = 65+ PNEUMOCOCCAL VACCINE (4 - PPSV23 or PCV20)] Future Scheduled 2022-01-16 INFLUENZA VACCINE Method [facility] Test 12:09:25 [code = INFLUENZA VACCINE] Future Scheduled 2022-01-14 SHINGLES VACCINES (1 Met [facility] Test 04:11:46 of 2) [code = SHINGLES VACCINES (1 of 2)] Future Scheduled 2022-01-14 Screening for [facility] Test 04:11:46 malignant neoplasm of cervix (procedure) [code = [id number]] Future Scheduled 2022-01-14 BREAST CANCER [facility] Test 04:11:46 SCREENING [code = BREAST CANCER SCREENING] Future Scheduled 2022-01-14 COLONOSCOPY SCREENING [facility] Test 04:11:46 [code = COLONOSCOPY SCREENING] Future Scheduled 2022-01-14 HEPATITIS B VACCINES Met [facility] Test 04:11:46 (1 of 3 - Risk 3-dose series) [code = HEPATITIS B VACCINES (1 of 3 - Risk 3-dose series)] Future Scheduled 2022-01-14 COVID-19 VACCINE (3 - [facility] Test 04:11:46 Booster for Pfizer series) [code = COVID-19 VACCINE (3 - Booster for Pfizer series)] Future Scheduled 2022-01-14 65+ PNEUMOCOCCAL [facility] Test 04:11:46 VACCINE (4 - PPSV23 or PCV20) [code = 65+ PNEUMOCOCCAL VACCINE (4 - PPSV23 or PCV20)] Future Scheduled 2022-01-14 INFLUENZA VACCINE Method [facility] Test 04:11:46 [code = INFLUENZA VACCINE] Future Scheduled 2021-08-26 Screening for [facility] Test 13:02:23 malignant neoplasm of cervix (procedure) [code = [id number]] Future Scheduled 2021-08-26 BREAST CANCER [facility] Test 13:02:23 SCREENING [code = BREAST CANCER SCREENING] Future Scheduled 2021-08-26 COLONOSCOPY SCREENING [facility] Test 13:02:23 [code = COLONOSCOPY SCREENING] Future Scheduled 2021-08-26 Screening for [facility] Test 13:02:23 malignant neoplasm of lung (procedure) [code = [id number]] Future Scheduled 2021-08-26 SHINGLES VACCINES (#1) [facility] Test 13:02:23 [code = SHINGLES VACCINES (#1)] Future Scheduled 2021-08-26 COVID-19 VACCINE (3 - [facility] Test 13:02:23 Pfizer risk 4-dose series) [code = COVID-19 VACCINE (3 - Pfizer risk 4-dose series)] Future Scheduled 2021-08-26 65+ [facility] 13:02:23 VACCINE (4 of 4 - PPSV23) [code = 65+ PNEUMOCOCCAL VACCINE (4 of 4 - PPSV23)] Future Scheduled 2021-08-26 INFLUENZA VACCINE [facility] Test 13:02:23 [code = INFLUENZA VACCINE] Encounters Start End Encounter Admission Attending Care Care Encounter Source Date/Time Date/Time Type Type Clinicians Facility Department ID 2022-02-18 Outpatient [facility] W [id number] [place] 14:30:[address] [place] [address] 2021-07-14 Outpatient SADIKOVIC, [facility] [id number] [place] 09:33:51 [facility] 2021-06-02 Outpatient HEMATPOUR, [facility] [id number] [place] 13:58:59 [facility] 2021-04-28 Outpatient HEMATPOUR, [facility] [id number] [place] 11:21:22 [facility] 2021-03-20 Emergency [facility] [id number] [facility] H[facility], [facility] [id number] [place] 08:16:46 [facility] 2020-10-31 Outpatient HEMATPOUR, [facility] [id number] [place] 09:44:50 BEVERLY Laird 2020-09-30 Outpatient HEMATPOUR, [facility] [id number] [place] 13:16:03 BEVERLY Wingt h 2022-04-07 2022-04-07 Outpatient R UNKNOWN, [facility] [id number] Univers 20:40:00 20:40:00 ATTENDING ity [facility] 2022-04-07 2022-04-07 Telephone Devin, 1.2.840.4 [id number] Univers 00:00:00 00:00:00 Robbi Hairston 34467.1.1 i ty of 3.104.2.7 [place] .3.440230 Medica [place] .8 [place] 2022-03-05 2022-03-05 Rn Production Santiago Cardenas 1.2.840.1 [id number] Univers 13:45:00 14:00:00 Visit [facility] 38015.1.1 ity of 3.104.2.7 [place] .3.613348 Medica l .8 [place] 2022-03-05 2022-03-05 Outpatient [facility] [id number] Univers 13:45:00 13:45:00 [facility] 2022-03-05 2022-03-05 Office Ronald, 1.2.840.9 [id number] Univers 13:00:00 13:30:00 Visit Santiago 91657.1.1 ity of 3.104.2.7 [place] .3.825717 Medica l .[address] [place] [address] 2022-02-26 2022-02-26 Outpatient R [facility] [id number] Univers 08:30:00 08:30:00 [facility] 2022-02-26 2022-02-26 Outpatient R [facility] [id number] Univers 08:30:00 08:30:00 [facility] 2022-02-17 2022-02-17 Transition Stevo, 1.2.840.0 [id number] Univers 00:00:00 00:00:00 of Care Isaias Arredondo 12791.1.1 it y of 3.104.2.7 [place] .3.309472 Medica l .8 Branch 2022-02-10 2022-02-16 Inpatient X FRANK MDCAMDEN FAVIO [id number] Univers 22:59:00 19:27:00 PETER ity of [facility] 2022-02-10 2022-02-16 Hospital Reilly Means 1.2.840.1 [id number] Univers 22:59:00 19:27:00 Encounter Ofe Shields 47013.1.1 ity of [place].2.7 [place] .3.461351 Medica [place] .8 Branch 2022-02-11 2022-02-11 Telephone East, 1.2.840.0 [id number] Univers 00:00:00 00:00:00 Santiago 89729.1.1 ity of 3.104.2.7 [place] .3.031672 Medica l .8 Branch 2022-02-10 2022-02-10 Travel 1.2.840.1 [id number] [id number] Univers 00:00:00 00:00:00 62874.1.1 350.1.13.10 ity of 3.104.2.7 [place].698 [place] .3.[place]690 084.8 Medica l .8 Branch 2022-01-30 2022-01-30 Telephone East, 1.2.840.2 [id number] Univers 00:00:00 00:00:00 Santiago 56597.1.1 ity of 3.104.2.7 [place] .3.930406 Medica l .8 Branch 2022-01-06 2022-01-06 Orders Doctor CHRISTENSEN 1.2.840.114 [id number] Univers 00:00:00 00:00:00 Only Unassigned, JACKELINE 350.1.13.10 ity of [facility] 4.2.7.2.686 Yomi as [phone] [facility] porfirio 009 [place] 2021-12-25 2021-12-25 Orders Doctor CHRISTENSEN 1.2.840.114 [id number] Univers 00:00:00 00:00:00 Only Unassigned, JACKELINE 350.1.13.10 ity of [facility] 4.2.7.2.686 Yomi as [id number] [facility] 009 Branch 2021-12-12 2021-12-13 Emergency X Bill COLES [facility] ERT [id number] Univers 23:53:00 01:52:00 ity of [facility] 2021-12-12 2021-12-13 Emergency Bill Coles [facility] 1.2.840.114 [id number] Univers 23:53:00 01:52:00 Kiersten BULLOCK 350.1.13.10 i ty of [place] [phone] [facility] 084 Branch 2021-11-20 2021-11-20 Rn Production [facility] UNIVERSIT 1.2.840.114 [id number] Univers 09:45:00 10:00:00 Visit [facility] 350.1.13.10 ity of [facility] 4[place] [id number] [facility] 316 Branch 2021-11-20 2021-11-20 Office [facility] 1.2.565.789 [id number] Univers 08:30:00 09:00:00 Visit [facility] 350.1.13.10 i ty of [facility] 4[place] [id number] [facility] 089 Branch 2021-11-20 2021-11-20 Outpatient R [facility] [id number] Univers 08:30:00 08:30:00 [facility] 2021-11-20 2021-11-20 Outpatient R [facility] [id number] Univers 08:30:00 08:30:00 [facility] 2021-11-20 2021-11-20 Outpatient R [facility] [id number] Univers 08:30:00 08:30:00 [facility] 2021-11-20 2021-11-20 Outpatient R [facility] [id number] Univers 08:30:00 08:30:00 SANTIAGO barbosa [facility] 2021-10-24 2021-10-24 Emergency X ESVIN [facility] ERT [id number] Univers 16:27:00 22:26:00 CHARITY barbosa [facility] 2021-10-24 2021-10-24 Emergency X ESVIN [facility] ERT [id number] Univers 16:27:00 22:26:00 CHARITY barbosa [facility] 2021-10-24 2021-10-24 Emergency Reilly Means [facility] 1.2.840. 114 [id number] Univers 16:27:00 22:26:00 Charity Mcallister 350.1.13.10 ity [facility] 4.2.7.2.686 [facility] [id number] [address] 2021-10-23 2021-10-24 Emergency X ESVIN [facility] ERT [id number] Univers 20:22:00 02:57:00 CHARITY barbosa [facility] 2021-10-23 2021-10-24 [facility] 1.2.368.400 [id number] Univers 20:22:00 02:57:00 [facility] 350.1.13.10 ity [facility] 4.2.7.2.686 [facility] [id number] [address] 2021-09-07 2021-09-07 Outpatient R [facility] [id number] Univers 08:00:00 08:00:00 GADIEL familia lela rodas [facility] 2021-09-07 2021-09-07 [facility] [id number] Univers 08:00:00 08:00:00 GADIEL vogel clark [facility] 2021-08-21 2021-08-21 Outpatient R [facility] [id number] Univers 10:45:00 10:45:00 SANTIAGO barbosa [facility] 2021-08-21 2021-08-21 Rn Production Santiago Cardenas 1.2.840.1 [id number] Univers 10:45:00 10:45:00 Visit [facility] 94234.1.1 ity of 3.104.2.7 [place] .3.295121 Medica l .8 Branch 2021-08-21 2021-08-21 Office East, 1.2.840.0 [id number] Univers 08:30:00 09:00:00 Visit Santiago 60624.1.1 ity of 3.104.2.7 [place] .3.589462 Medica l .8 Branch 2021-08-21 2021-08-21 Office East, [facility] 1.2.221.088 [id number] Univers 08:30:00 09:00:00 Visit [place] [facility] 350.1.13.10 i ty of [place] [id number] [facility] 089 [place] 2021-08-21 2021-08-21 Outpatient R [facility] [id number] Univers 08:30:00 08:30:00 [place] ity of [facility] 2021-08-21 2021-08-21 Travel 1.2.840.1 [id number] Univers 00:00:00 00:00:00 11780.1.1 350.1.13.10 ity of 3.104.2.7 4.[place]7.3.698 [place] .3.735649 084.8 Medica l .8 [place] 2021-08-14 2021-08-14 Telephone East, 1.2.840.2 [id number] Univers 00:00:00 00:00:00 [place] 24532.1.1 ity of 3.104.2.7 [place] .3.044849 Medica l .8 Branch 2021-08-13 2021-08-13 Telephone East, 1.2.840.9 [id number] Univers 00:00:00 00:00:00 Santiago 25799.1.1 ity of 3.104.2.7 [place] .3.343605 Medica l .8 Branch 2021-08-11 2021-08-11 Outpatient R [facility] [id number] Univers 08:00:00 08:00:00 [facility] 2021-08-05 2021-08-05 Inpatient EDUARDO LealCL OUTD [id number] [facility] 05:24:00 05:24:00 Mike 31 [facility] 2021-07-20 2021-07-20 Outpatient R [facility] [id number] Univers 10:00:00 10:00:00 [facility] 2021-07-14 2021-07-14 Office Pankaj, UTP 6400 1.2.840.114 13 [id number] MD 08:45:00 09:34:[address] 350.1.13.58 Health 9.2.7.2.686 [id number] 1 2021-07-09 2021-07-09 Telephone Hematpour, UTP 6400 1.2.840.114 [id number] MD 00:00:00 00:00:[address] 350.1.13.58 Health 9.2.7.2.686 [id number] 1 2021-07-09 2021-07-09 Telephone Hematpour, UTP 6400 1.2.840.114 [id number] MD 00:00:00 00:00:[address] 350.1.13.58 Health 9.2.7.2.686 [id number] 1 2021-07-03 2021-07-03 Outpatient R [facility] [id number] Univers 08:00:00 08:00:00 [facility] 2021-06-17 2021-06-17 Inpatient WINTER Leal INTE.02 [id number] [facility] 10:56:00 14:36:00 Mike 47 [facility] 2021-06-15 2021-06-15 Outpatient R SELF, [facility] [id number] Univers 10:15:00 11:07:21 GADIEL rodas [facility] 2021-06-15 2021-06-15 Outpatient R SELF, [facility] [id number] Univers 10:15:00 10:15:00 GADIEL rodas [facility] 2021-06-15 2021-06-15 Outpatient R SELF, [facility] [id number] Univers 10:15:00 10:15:00 GADIEL rodas [facility] 2021-06-15 2021-06-15 Orders Doctor 1.2.840.5 [id number] 775 Univers 00:00:00 00:00:00 Only Unassigned, 08383.1.1 ity of [place] 3.104.2.7 [place] .3.703018 Medica l .8 Branch 2021-06-15 2021-06-15 Travel 1.2.840.1 1.2.536.330 4386 7719 Univers 00:00:00 00:00:00 96904.1.1 350.1.13.10 ity of 3.104.2.7 [place].3.698 [place] .3.6914[place] 084.8 Medica l .8 [place] 2021-06-11 2021-06-11 Refill [facility], [facility] 1.2.661.883 3999 9185 Univers 00:00:00 00:00:00 [facility] 350.1.13.10 i ty of CL[place].2.[place] [id number] [address] 2021-06-11 2021-06-11 Refill East, 1.2.840.2 [id number] 185 Univers 00:00:00 00:00:00 Santiago 50414.1.1 ity of 3.104.2.7 [place] .3.690249 Medica l .8 [place] 2021-06-05 2021-06-05 Outpatient R EAST, [facility] [id number] Univers 09:00:00 09:00:00 SANTIAGO itcharlie of [facility] 2021-06-02 2021-06-02 Telephone [facility], [facility] 1.2.840.114 90 [id number] Univers 00:00:00 00:00:00 [facility] 350.1.13.10 i ty of [place].2.686 [place] [id number] [address] 2021-06-02 2021-06-02 Telephone East, 1.2.840.8 [id number] 903 [id number] Univers 00:00:00 00:00:00 Santiago 56128.1.1 ity of 3.104.2.7 [place] .3.740353 Medica l .8 Branch 2021-05-29 2021-05-29 Telephone East, 1.2.840.5 [id number] 902 80288 Univers 00:00:00 00:00:00 Santiago 06208.1.1 ity of 3.104.2.7 [place] .3.838486 Medica l .8 Branch 2021-05-29 2021-05-29 Telephone East, 1.2.840.3 [id number] 902 [id number] Univers 00:00:00 00:00:00 Santiago 09475.1.1 ity of 3.104.2.7 [place] .3.998565 Medica l .8 [place] 2021-05-25 2021-05-25 Outpatient R RODO, [facility] [id number] Univers 08:00:00 08:00:00 GADIEL barbosa o f [facility] 2021-04-29 2021-04-29 Outpatient R LALA, [facility] [id number] Univers 08:00:00 08:00:00 NIKOLAI barbosa [facility] 2021-04-28 2021-04-28 Telephone Hematpour, UTP 6400 1.2.840.114 [id number] MD 00:00:00 00:00:[address] 350.1.13.58 Health 9.2.7.2.686 [id number] 1 2021-04-28 2021-04-28 Telephone Jailyn, 1.2.840.1 [id number] 21 [id number] Methodi 00:00:00 00:00:[address] 3.430.2.7 Hospit a .3.683091 l .8 2021-04-28 2021-04-28 Telephone Chidimasa, 1.2.840.8 [id number] 21 [id number] Methodi 00:00:00 00:00:[address] 3.430.2.7 Hospit a .3.879641 l .8 2021-03-31 2021-03-31 Orders Carol Ann, 1.2.840.1 [id number] 21 [id number] Methodi 00:00:00 00:00:00 Only Sarai Lieberman 20348.1.1 979 s t 3.430.2.7 Hospit a .3.907648 l .8 2021-03-30 2021-03-30 Outpatient R RODO, [facility] [id number] Univers 08:45:00 08:45:00 GADIEL rodas [facility] 2021-03-24 2021-03-24 Telephone Jailyn, 1.2.840.6 [id number] 21 [id number] Methodi 00:00:00 00:00:[address] 3.430.2.7 Hospit a .3.730614 l .8 2021-02-13 2021-02-13 Telephone Ronald, 1.2.840.6 [id number] 876 61470 Univers 00:00:00 00:00:00 Santiago 86285.1.1 ity of 3.104.2.7 [place] .3.523189 Medica l .8 [place] 2021-01-28 2021-01-28 [facility] [id number] 145 Univers 08:45:00 09:37:00 NIKOLAI barbosa [facility] 2021-01-28 2021-01-28 Travel 1.2.840.1 1.2.961.785 8051 9777 Univers 00:00:00 00:00:00 83140.1.1 350.1.13.10 ity of 3.104.2.7 4.[place].7.3.698 [place] .3.869443 084.8 Medica l .8 [place] 2021-01-19 2021-01-19 Telephone Prabhu, 1.2.840.1 [id number] 2100 903120 Methodi 00:00:00 00:00:[address] 3.430.2.7 Hospit a .3.809611 l .8 2021-01-04 2021-01-04 Letter Shelia, 1.2.840.5 [id number] 696 Univers 00:00:00 00:00:00 (Out) Dagoberto H 84859.1.1 ity of 3.104.2.7 [place] .3.594284 Medica l .8 Branch 2021-01-04 2021-01-04 Dmitry Bass, 1.2.840.6 [id number] 24842 696 Univers 00:00:00 00:00:00 (Out) Dagoberto H 98670.1.1 ity of 3.104.2.7 [place] .3.811185 Medica l .8 Branch 2021-01-03 2021-01-03 Dmitry Bass, 1.2.840.8 [id number] 32842 790 Univers 00:00:00 00:00:00 (Out) Dagoberto H 99278.1.1 ity of 3.104.2.7 [place] .3.523863 Medica l .8 Branch 2021-01-03 2021-01-03 Dmitry Bass, 1.2.840.9 [id number] 04377 790 Univers 00:00:00 00:00:00 (Out) Dagoberto H 83979.1.1 ity of 3.104.2.7 [place] .3.571306 Medica l .8 [place] 2021-01-02 2021-01-02 Outpatient R [facility] [id number] 786 Univers 13:40:00 13:40:00 ity of [facility] 2021-01-02 2021-01-02 Laboratory Cuba Franks 1.2.840.8 [id number] [id number] Univers 12:14:13 12:57:34 Only Lab, [place] 64059.1.1 ity of 3.104.2.7 [place] .3.275796 Medica l .8 Branch 2021-01-02 2021-01-02 Laboratory Cuba Franks 1.2.840.3 [id number] [id number] Univers 12:14:13 12:57:34 Only Lab, [place] 50880.1.1 ity of 3.104.2.7 [place] .3.897925 Medica l .8 Branch 2021-01-02 2021-01-02 Travel 1.2.840.1 1.2.025.775 3273 2306 Univers 00:00:00 00:00:00 02918.1.1 350.1.13.10 ity of 3.104.2.7 4.2.7.3.698 [place] .3.597870 084.8 Medica l .8 Branch 2021-01-02 2021-01-02 Letter Doctor 1.2.840.6 [id number] 42998 948 Univers 00:00:00 00:00:00 (Out) Unassigned, 28190.1.1 ity of [place] 3.104.2.7 [place] .3.649516 Medica l .8 Branch 2021-01-02 2021-01-02 Letter Doctor 1.2.840.5 [id number] 81630 946 Univers 00:00:00 00:00:00 (Out) Unassigned, 49079.1.1 ity of [place] 3.104.2.7 [place] .3.332782 Medica l .8 Branch 2021-01-02 2021-01-02 Travel 1.2.840.1 1.2.745.048 7767 2306 Univers 00:00:00 00:00:00 81307.1.1 350.1.13.10 ity of 3.104.2.7 4.2.7.3.698 [place] .3.135894 084.8 Medica l .8 Branch 2021-01-02 2021-01-02 Letter Doctor 1.2.840.0 [id number] 81896 948 Univers 00:00:00 00:00:00 (Out) Unassigned, 71071.1.1 ity of [place] 3.104.2.7 [place] .3.477054 Medica l .8 Branch 2021-01-02 2021-01-02 Letter Doctor 1.2.840.8 [id number] 946 [facility] 00:00:00 00:00:00 (Out) Unassigned, 53933.1.1 ity of [place] 3.104.2.7 [place] .3.620291 Medica l .8 Branch 2020-12-22 2020-12-22 Telephone Beltran, 1.2.840.2 [id number] 862 07305 Univers 00:00:00 00:00:00 Eligionda R 48798.1.1 i ty of 3.104.2.7 [place] .3.062688 Medica l .8 Branch 2020-12-22 2020-12-22 Telephone Beltran, 1.2.840.7 [id number] 862 40948 Univers 00:00:00 00:00:00 Eligionda R 27611.1.1 i ty of 3.104.2.7 [place] .3.746650 Medica l .8 [place] 2020-12-12 2020-12-12 Office Hematpour, UTP 6400 1.2.840.114 12 [id number] MD 07:42:02 08:18:[address] 350.1.13.58 Health 9.2.7.2.686 [id number] 1 2020-12-12 2020-12-12 Office Hematpour, UTP 6400 1.2.840.114 12 [id number] 07:42:02 08:18:[address] 350.1.13.58 9.2.7.2.686 [id number] 1 2020-12-09 2020-12-09 Telephone [facility], 1.2.840.1 [id number] Methodi 00:00:00 00:00:00 Sarai M. 05136.1.1 316 s t 3.430.2.7 Hospit a .3.928496 l .8 2020-12-08 2020-12-08 [facility], 1.2.840.1 [id number] 2100 586600 Methodi 12:35:54 23:59:00 Encounter Ray 76642.1.[address] 3.430.2.7 Hospit a .3.734001 l .8 2020-12-08 2020-12-08 Lab Jailyn, 1.2.840.1 [id number] 17592 35198 Methodi 17:25:00 17:30:[address] 3.430.2.7 Hospit a .3.505127 l .8 2020-12-08 2020-12-08 Office Jailyn, 1.2.840.1 [id number] 98045 52647 Methodi 10:30:00 11:39:56 Visit Ray [address]113.1.[address] 3.430.2.7 Hospit a .3.682247 l .8 2020-12-08 2020-12-08 Travel 1.2.840.1 1.2.914.640 1330 601667 Methodi 00:00:00 00:00:[address] 3.430.2.7 0.2.7.3.698 Ho spita .3.841154 084.8 l .8 2020-12-02 2020-12-02 Rn Production Santiago Cardenas 1.2.840.1 [id number] Univers 10:20:06 10:36:19 Visit [facility] 37021.1.1 ity of 3.104.2.7 [place] .3.719934 Medica l .8 [place] 2020-12-02 2020-12-02 Rn Production Santiago Cardenas 1.2.840.1 [id number] [facility] 10:20:06 10:36:19 Visit [facility] 44762.1.1 ity of 3.104.2.7 [place] .3.887152 Medica l .8 [place] 2020-12-02 2020-12-02 Rn Production [facility] UNIVERSIT 1.2.840.114 8 [id number] 10:20:06 10:36:19 Visit [facility] 350.1.13.10 CLINICS 4.2.7.2.686 186.6737995 316 2020-12-02 2020-12-02 Office Ronald, 1.2.840.4 [id number] 46513 528 Univers 08:31:37 09:01:37 Visit Santiago 07978.1.1 ity of 3.104.2.7 [place] .3.554171 Medica l .8 [place] 2020-12-02 2020-12-02 Outpatient R [facility] [id number] Univers 09:00:00 09:00:00 SANTIAGO ity of [facility] 2020-11-25 2020-11-25 Office Devin, 1.2.840.0 [id number] 23505 865 Univers 11:06:30 11:58:14 Visit Robbi Hairston 87504.1.1 i ty of 3.104.2.7 [place] .3.042825 Medica l .[address] [place] [address] 2020-11-25 2020-11-25 Office Devin, 1.2.840.8 [id number] 96530 865 Univers 11:06:30 11:58:14 Visit Robbi Hairston 38380.1.1 i ty of 3.104.2.7 [place] .3.024952 Medica l [address] 2020-11-25 2020-11-25 [facility] 1.2.840.114 [id number] 65 11:06:30 11:58:14 Visit Robbi Hairston [facility] 350.1.13.10 [facility] 4.2.7.2.686 MATERNAL 550.0593172 & CHILD [address] [place] [address] 2020-11-25 2020-11-25 Outpatient R [facility] [id number] 288 Univers 11:00:00 11:00:00 ity of [facility] 2020-11-25 2020-11-25 Telephone Beltran, 1.2.840.8 [id number] 855 10232 Univers 00:00:00 00:00:00 Robbi Hairston 63183.1.1 i ty of 3.104.2.7 [place] .3.265110 Medica l .8 [place] 2020-11-25 2020-11-25 Refill [facility], 1.2.840.4 [id number] 23220 592 Univers 00:00:00 00:00:00 Santiago 28058.1.1 ity of 3.104.2.7 [place] .3.847765 Medica l .8 Branch 2020-11-25 2020-11-25 Travel 1.2.840.1 1.2.410.772 5004 0247 Univers 00:00:00 00:00:00 33982.1.1 350.1.13.10 ity of 3.104.2.7 4.2.7.3.698 [place] .3.513860 084.8 Medica l .8 Branch 2020-11-25 2020-11-25 Orders Doctor 1.2.840.5 [id number] 31079 064 Univers 00:00:00 00:00:00 Only Unassigned, 62155.1.1 ity of [place] 3.104.2.7 [place] .3.760871 Medica l .8 Branch 2020-11-25 2020-11-25 Telephone Beltran, 1.2.840.5 [id number] 855 75794 Univers 00:00:00 00:00:00 Robbi Hairston 93293.1.1 i ty of 3.104.2.7 [place] .3.189455 Medica l .8 Branch 2020-11-25 2020-11-25 Refill East, 1.2.840.2 [id number] 21295 592 Univers 00:00:00 00:00:00 Santiago 18877.1.1 ity of 3.104.2.7 [place] .3.176834 Medica l .8 Branch 2020-11-25 2020-11-25 Travel 1.2.840.1 1.2.669.244 5540 0247 Univers 00:00:00 00:00:00 40327.1.1 350.1.13.10 ity of 3.104.2.7 4.2.7.3.698 [place] .3.255977 084.8 Medica l .8 Branch 2020-11-25 2020-11-25 Orders Doctor 1.2.840.8 [id number] 69726 064 Univers 00:00:00 00:00:00 Only Unassigned, 06550.1.1 ity of [place] 3.104.2.7 [facility]3.071677 [facility] [place] 2020-11-25 2020-11-25 [facility] 1.2.113.807 9382 4592 00:00:00 00:00:00 [facility] 350.1.13.10 [facility] 4.2.7.2.686 484.0065011 089 2020-11-25 2020-11-25 Telephone [facility] 1.2.233.738 6152 0821 00:00:00 00:00:00 Robbi Hairston [facility] 350.1.13.10 [facility] 4.2.7.2.686 MATERNAL 306.4329677 & CHILD [address] [place] [address] 2020-11-14 2020-11-14 Abstract Clark, 1.2.840.1 [id number] 87238 53474 Methodi 00:00:00 00:00:[address] 3.430.2.7 Hospit a .3.589402 l .8 2020-11-14 2020-11-14 Telephone Rodas 1.2.840.1 [id number] 2100 012496 Methodi 00:00:00 00:00:[address] 3.430.2.7 Hospit a .3.255352 l .8 2020-11-12 2020-11-12 Outpatient [facility] [id number] 323 Univers 08:30:00 08:30:00 SANTIAGO ity [facility] 2020-11-07 2020-11-07 Telephone Agustina Ortiz 6400 1.2.840.11 4 [id number] MD 00:00:00 00:00:[address] 350.1.13.58 Health 9.2.7.2.686 804.5726488 1 2020-11-07 2020-11-07 Telephone KIMBERLEY Ortiz 6400 1.2.840.114 124 [id number] 00:00:00 00:00:[address] 350.1.13.58 9.2.7.2.686 976.6460987 1 2020-10-31 2020-10-31 Office Hematpour, UTP 6400 1.2.840.114 12 [id number] MD 07:54:00 09:45:[address] 350.1.13.58 Health 9.2.7.2.686 109.3995158 1 2020-10-30 2020-10-30 Abstract Rody Maguire UTP 6400 1.2.840.1 14 [id number] MD 00:00:00 00:00:[address] 350.1.13.58 Health 9.2.7.2.686 246.9465635 1 2020-10-29 2020-10-29 Refill [place], 1.2.840.7 [id number] 02852 400 Univers 00:00:00 00:00:00 Santiago 06155.1.1 ity of 3.104.2.7 [place] .3.842981 Medica l .8 [place] 2020-10-29 2020-10-29 Refill [place], 1.2.840.1 [id number] 00355 400 Univers 00:00:00 00:00:00 Santiago 48024.1.1 ity of 3.104.2.7 [place] .3.004278 Medica l .8 [place] 2020-10-27 2020-10-27 Telephone Jailyn, 1.2.840.6 [id number] 21 [id number] Methodi 00:00:00 00:00:[address] 3.430.2.7 Hospit a .3.613098 l .8 2020-10-24 2020-10-24 Telephone Rodas, 1.2.840.1 [id number] 2100 352276 Methodi 00:00:00 00:00:[address] 3.430.2.7 Hospit a .3.428776 l .8 2020-10-22 2020-10-22 Outpatient R SELF, [facility] [id number] 868 [facility] 13:00:00 13:00:00 GADIEL rodas [facility] 2020-10-22 2020-10-22 Travel 1.2.840.1 1.2.508.686 9161 3839 Univers 00:00:00 00:00:00 01048.1.1 350.1.13.10 ity of 3.104.2.7 4[place].7.3.698 [place] .3.817743 084.8 Medica l .8 [place] 2020-10-22 2020-10-22 Travel 1.2.840.1 1.2.758.353 1050 3839 Univers 00:00:00 00:00:00 39831.1.1 350.1.13.10 ity of 3.104.2.7 4.2.7.3.698 [place] .3.466794 084.8 Medica l .8 [place] 2020-10-13 2020-10-13 Outpatient R SELF, [facility] [id number] Univers 08:45:00 08:45:00 GADIEL rodas [facility] 2020-10-06 2020-10-12 Telemedici Cadea, 1.2.840.1 [id number] 21 [id number] Methodi 15:30:00 00:08:46 ne Ray 84359.1.[address] 3.430.2.7 Hospit a .3.108809 l .8 2020-09-30 2020-09-30 Telephone Cadea, 1.2.840.4 [id number] 21 [id number] Methodi 00:00:00 00:00:[address] 3.430.2.7 Hospit a .3.430885 l .8 2020-09-21 2020-09-21 Travel 1.2.840.1 1.2.794.711 5318 642096 Methodi 00:00:00 00:00:[address] 3.430.2.7 0.2.7.3.698 Ho spita .3.234259 084.8 l .8 2020-09-06 2020-09-06 [facility] 1.2.840.1 [id number] 58101 40550 Methodi 17:42:30 23:59:[address] 3.430.2.7 Hospit a .3.728319 l .8 2020-09-06 2020-09-06 [facility], 1.2.840.1 [id number] 2099 806292 Methodi 16:50:00 17:41:00 Encounter Ray [address]00.1.[address] 3.430.2.7 Hospit a .3.984631 l .8 2020-09-05 2020-09-05 [facility], 1.2.840.1 [id number] 2099 902639 Methodi 09:17:00 19:45:00 Encounter Ray [address].1.[address] 3.430.2.7 Hospit a .3.110664 l .8 2020-09-05 2020-09-05 [facility], 1.2.840.1 [id number] 82208 68545 Methodi 11:30:00 13:15:[address] 3.430.2.7 Hospit a .3.271650 l .8 2020-09-05 2020-09-05 Anesthesia Remigio, 1.2.840.1 [id number] 936 6497065 Methodi 11:27:00 12:20:00 Event Lynnettevalentinarobbie 26087.1.1 243 s t V. 3.430.2.7 Hospit a .3.841400 l .8 2020-09-05 2020-09-05 Travel 1.2.840.1 1.2.139.861 9483 734526 Methodi 00:00:00 00:00:[address] 3.430.2.7 0.2.7.3.698 Ho spita .3.856245 084.8 l .8 2020-09-04 2020-09-04 Telephone Carol Ann, 1.2.840.1 [id number] Methodi 00:00:00 00:00:00 Sarai Lieberman 62298.1.1 762 s t 3.430.2.7 Hospit a .3.641739 l .8 2020-09-02 2020-09-02 Telephone Carol Ann, 1.2.840.8 [id number] Methodi 00:00:00 00:00:00 Sarai Lieberman 20473.1.1 344 s t 3.430.2.7 Hospit a .3.543816 l .8 2020-08-29 2020-08-30 Bedded [facility] [id number] 275 [facility] 10:20:00 14:10:00 Outpatient r [place] 00 l [facility] 2020-08-29 2020-08-30 Outpatient [facility], [facility] CAR 7500 [facility] 05:20:00 09:10:00 BEVERLY 2020-08-06 2020-08-06 Office [place], 1.2.840.6 [id number] 70607 416 Univers 08:03:23 09:17:49 Visit Santiago 66885.1.1 ity of 3.104.2.7 [place] .3.017240 Medica l .8 [place] 2020-08-06 2020-08-06 Outpatient R EAST, [facility] [id number] Univers 08:30:00 08:30:00 SANTIAGO barbosa of [facility] 2020-07-14 2020-07-14 Outpatient R SELF, [facility] [id number] Univers 09:30:00 09:30:00 GADIEL barbosa o f [facility] 2020-07-14 2020-07-14 Travel 1.2.840.1 1.2.686.854 0008 2575 Univers 00:00:00 00:00:00 17615.1.1 350.1.13.10 ity of 3.104.2.7 4.2.7.3.698 [place] .3.628250 084.8 Medica l .8 [place] 2020-07-14 2020-07-14 Orders Doctor 1.2.840.4 [id number] 20671 309 Univers 00:00:00 00:00:00 Only Unassigned, 49451.1.1 ity of [place] 3.104.2.7 [place] .3.690091 Medica l .8 [place] 2020-06-16 2020-06-16 Outpatient R [facility], [facility] [id number] 239 Univers 08:00:00 08:00:00 GADIEL ity o f [facility] 2020-06-06 2020-06-06 Telephone Ronald, 1.2.840.8 [id number] 809 90008 Univers 00:00:00 00:00:00 Santiago 20347.1.1 ity of 3.104.2.7 [place] .3.899784 Medica l .8 [place] 2020-06-04 2020-06-04 Rn Production Santiago Cardenas 1.2.840.1 2337095 316 [id number] Univers 09:31:58 09:40:12 Visit [facility] 67360.1.1 ity of 3.104.2.7 [place] .3.446844 Medica l .8 [place] 2020-06-04 2020-06-04 Office [facility], [facility] 1.2.200.704 4005 9729 Univers 08:13:41 09:28:25 Visit Santiago [facility] 350.1.13.10 i ty of CLINICS 4.2.7.2.686 Richi bach 301.4390324 [facility] porfirio 089 [place] 2020-06-04 2020-06-04 Outpatient R [facility] [id number] Univers 08:30:00 08:30:00 SANTIAGO barbosa of [facility] 2020-06-04 2020-06-04 Orders Doctor 1.2.840.9 [id number] Univers 00:00:00 00:00:00 Only Unassigned, 42583.1.1 ity of [place] 3.104.2.7 [place] .3.366780 Medica l .8 [place] 2020-05-19 2020-05-19 Telephone East, 1.2.840.5 [id number] Univers 00:00:00 00:00:00 [place] 96151.1.1 ity of 3.104.2.7 [place] .3.915613 Medica l .8 [place] 2020-04-24 2020-04-24 Telephone East, 1.2.840.3 [id number] Univers 00:00:00 00:00:00 [place] 85661.1.1 ity of 3.104.2.7 [place] .3.122819 Medica l .8 [place] 2020-04-14 2020-04-14 Outpatient R EAST, [facility] [id number] Univers 09:00:00 09:00:00 SANTIAGO ity of [facility] 2020-04-14 2020-04-14 Telephone East, 1.2.840.8 [id number] Univers 00:00:00 00:00:00 [place] 19989.1.1 ity of 3.104.2.7 [place] .3.440605 Medica l .8 [place] 2020-03-31 2020-03-31 Outpatient R EAST, [facility] [id number] Univers 08:30:00 08:30:00 SANTIAGO ity of [facility] 2020-03-03 2020-03-03 Outpatient R SELF, [facility] [id number] Univers 08:00:00 08:00:00 GADIEL raheemcharlie o f [facility] 2020-03-03 2020-03-03 Outpatient R SELF, [facility] [id number] Univers 08:00:00 08:00:00 GADIEL raheemy o f [facility] 2020-03-03 2020-03-03 Travel 1.2.840.1 1.2.977.323 [id number] Univers 00:00:00 00:00:00 66990.1.1 350.1.13.10 ity of 3.104.2.[place]698 [place] .3.276031 084.8 Medica l .8 [place] 2020-02-06 2020-02-06 Telephone East, 1.2.840.3 [id number] Univers 00:00:00 00:00:00 [place] 77213.1.1 ity of 3.104.2.7 [place] .3.920134 Medica l .8 [place] 2020-01-26 2020-01-26 Emergency Caridad, 1.2.840.8 [id number] Univers 10:03:00 13:05:00 Cynise 28477.1.1 ity of 3.104.2.7 [place] .3.630357 Medica l .8 [place] 2020-01-26 2020-01-26 Travel 1.2.840.1 1.2.644.641 [id number] Univers 00:00:00 00:00:00 58413.1.1 350.1.13.10 ity of 3.104.2.[place].698 [place] .3.620347 084.8 Medica l .8 [place] 2020-01-25 2020-01-25 Outpatient R EAST, [facility] [id number] Univers 08:30:00 08:30:00 SANTIAGO barbosa [facility] 2020-01-25 2020-01-25 Telemedici East, 1.2.840.3 [id number] Univers 07:36:49 08:06:49 ne Visit [place] 33573.1.1 ity of 3.104.2.7 [place] .3.548855 Medica l .8 [place] 2020-01-16 2020-01-16 Outpatient R EAST, [facility] [id number] Univers 08:00:00 08:00:00 SANTIAGO barbosa [facility] 2020-01-16 2020-01-16 Telephone East, 1.2.840.4 [id number] Univers 00:00:00 00:00:00 [place] 34467.1.1 ity of 3.104.2.7 [place] .3.179492 Medica l .8 [place] 2020-01-14 2020-01-14 Outpatient R SELF, [facility] [id number] Univers 08:00:00 08:00:00 GADIEL vogel f [facility] 2019-12-31 2019-12-31 Outpatient R SELF, [facility] [id number] Univers 08:45:00 08:45:00 GADIEL barbosa o f [facility] 2019-10-17 2019-10-17 Outpatient R EAST, [facility] [id number] Univers 08:30:00 08:30:00 SANTIAGO barbosa [facility] 2019-10-12 2019-10-12 Outpatient R EAST, [facility] [id number] Univers 13:00:00 13:00:00 SANTIAGO ity of [facility] 2019-10-12 2019-10-12 Telemedici [place], 1.2.840.7 [id number] Univers 07:38:30 08:08:30 ne Visit [place] 20322.1.1 ity of 3.104.2.7 [place] .3.721152 Medica l .8 [place] 2019-10-08 2019-10-08 Outpatient R SELF, [facility] [id number] Univers 10:15:00 10:15:00 GADIEL ity o f [facility] 2019-10-03 2019-10-03 Case Judyman, 1.2.840.0 [id number] Univers 00:00:00 00:00:00 Management Michael Corbin 85798.1.1 i ty of 3.104.2.7 [place] .3.518469 Medica l .8 [place] 2019-09-27 2019-09-27 Telephone East, 1.2.840.2 [id number] Univers 00:00:00 00:00:00 [place] 06515.1.1 ity of 3.104.2.7 [place] .3.449088 Medica l .8 [place] 2019-09-04 2019-09-04 Refill East, 1.2.840.7 [id number] Univers 00:00:00 00:00:00 [place] 15306.1.1 ity of 3.104.2.7 [place] .3.943976 Medica l .8 [place] 2019-07-24 2019-07-24 Outpatient R [facility] [id number] Univers 08:30:00 08:30:00 SANTIAGO ity [facility] 2019-07-17 2019-07-17 Outpatient [facility] [id number] Univers 10:00:00 10:00:00 SANTIAGO ity [facility] 2019-06-15 2019-06-15 Telephone East, 1.2.840.0 [id number] Univers 00:00:00 00:00:00 [place] 58707.1.1 ity of 3.104.2.7 [place] .3.033245 Medica l .8 [place] 2019-06-13 2019-06-13 Telephone Team, [facility] 1.2.840.9 [id number] Univers 00:00:00 00:00:00 Health 39452.1.1 [place] .3.640491 Medica l .8 [place] 2019-05-10 2019-05-10 Refill Ronald, 1.2.840.5 [id number] Univers 00:00:00 00:00:00 [place] 84437.1.1 ity of 3.104.2.7 [place] .3.592332 Medica l .8 [facility] 2019-05-09 2019-05-09 Refill Ronald, 1.2.840.4 [id number] Univers 00:00:00 00:00:00 [place] 01877.1.1 ity of 3.104.2.7 [place] .3.197112 Medica l .8 [facility] 2019-04-30 2019-04-30 Outpatient R SELF, [facility] [id number] Univers 10:15:00 10:33:05 GADIEL vogel f [facility] 2019-04-18 2019-04-18 Rn Production Santiago Cardenas 1.2.840.1 [id number] Univers 10:00:39 10:44:31 Visit [facility] 41912.1.1 ity of 3.104.2.7 [place] .3.864151 Medica l .8 [facility] 2019-04-18 2019-04-18 Outpatient R RONALD [facility] [id number] Univers 10:00:00 10:44:31 SANTIAGO ity of [facility] 2019-04-18 2019-04-18 Office Ronald 1.2.840.5 [id number] Univers 08:27:44 09:53:27 Visit Santiago 49182.1.1 ity of 3.104.2.7 [place] .3.191235 Medica l .8 [facility] 2019-04-18 2019-04-18 Orders Doctor 1.2.840.7 [id number] Univers 00:00:00 00:00:00 Only Unassigned, 63880.1.1 ity of [place] 3.104.2.7 [place] .3.074272 Medica l .8 [facility] 2019-04-11 2019-04-11 Refill Ronald, 1.2.840.9 [id number] Univers 00:00:00 00:00:00 [place] 40112.1.1 ity of 3.104.2.7 [place] .3.769087 Medica l .8 [facility] 2019-04-09 2019-04-09 Refill Ronald, 1.2.840.0 [id number] Univers 00:00:00 00:00:00 [place] 58077.1.1 ity of 3.104.2.7 [place] .3.843019 Medica l .8 [facility] 2019-04-03 2019-04-03 Telephone Team, [facility] 1.2.840.0 [id number] Univers 00:00:00 00:00:00 Health 77520.1.1 [place] .3.558884 Medica l .8 [facility] 2019-03-27 2019-03-27 Telephone Self, 1.2.840.7 [id number] Univers 00:00:00 00:00:00 Gadiel 47235.1.1 ity of 3.104.2.7 [place] .3.657466 Medica l .8 [facility] 2019-01-17 2019-01-17 Office Ronald, 1.2.840.6 [id number] Univers 07:37:21 10:32:51 Visit Santiago 72734.1.1 ity of 3.104.2.7 [place] .3.936792 Medica l .8 [facility] 2019-01-04 2019-01-12 Office Eveline Hansen 1.2.840.4 [id number] Univers 11:19:32 11:08:05 Visit Mariela 06059.1.1 ity of 3.104.2.7 [place] .3.397998 Medica l .8 [facility] 2019-01-10 2019-01-10 Telephone Stanislav, 1.2.840.1 [id number] Univers 00:00:00 00:00:00 Eladio Inman 73514.1.1 ity of 3.104.2.7 [place] .3.267112 Medica l .8 [facility] 2018-12-18 2018-12-18 Office Geraldine, 1.2.840.2 [id number] Univers 08:48:45 09:13:43 Visit Leyda 47392.1.1 it y of 3.104.2.7 [place] .3.652482 Medica l .8 Branch 2018-10-30 2018-10-30 Telephone East, 1.2.840.9 [id number] Univers 00:00:00 00:00:00 [place] 57305.1.1 ity of 3.104.2.7 [place] .3.523140 Medica l .8 [facility] 2018-10-23 2018-10-23 Orders Doctor 1.2.840.7 [id number] Univers 00:00:00 00:00:00 Only Unassigned, 84607.1.1 ity of [place] 3.104.2.7 [place] .3.376523 Medica l .8 Branch 2018-10-23 2018-10-23 Nurse Selvin, 1.2.840.7 [id number] Univers 00:00:00 00:00:00 Triage Stefanie 74484.1.1 ity of 3.104.2.7 [place] .3.689521 Medica l .8 [facility] 2018-10-23 2018-10-23 Telephone Self, 1.2.840.5 [id number] Univers 00:00:00 00:00:00 Gadiel 32510.1.1 ity of 3.104.2.7 [place] .3.173334 Medica l .8 [facility] 2018-10-20 2018-10-20 Telephone Self, 1.2.840.2 [id number] Univers 00:00:00 00:00:00 Gadiel 89721.1.1 ity of 3.104.2.7 [place] .3.083458 Medica l .8 Branch Results Test Description Test Time Test Comments Results Result Comments Source BLOOD CULTURE SCREEN 2022-02-16 06:01:07 Test Item Value Reference Range Interpretation Comme nts Blood Culture-Aerobic (test No organisms isolated No growth Previous preliminary code = 65836-6) verified res ult was Culture In Prog [...] No growth Previous preliminary (test code = 83195-1) verifi ed result was Culture In Prog [...] CDT Lab Interpretation (test Normal code = 90412-1) [facility] [id number] 06:01:07 Test Item Value Reference Range Interpretation Comments Blood Culture-Aerobic No organisms No growth Previo us (test code = 15589-3) isolated prelim inary verified result was Culture [...] Culture-Anaerobic isolated preliminar y (test code = 57146-3) verifi ed result was Culture In Progress [...] CDT Lab Interpretation Normal (test code = 65207-0) [facility] [id number] 06:01:07 Test Item Value Reference Range Interpretation Comments Blood Culture-Aerobic No organisms No growth Previo us (test code = 16658-3) isolated prelim inary verified result was Culture [...] Culture-Anaerobic isolated preliminar y (test code = 91111-6) verifi ed result was Culture In Progress [...] CDT Lab Interpretation Normal (test code = 86358-1) [id number]:49:10 Test Item Value Reference Range Interpretation Comments NT-proBNP (test code 2660 pg/mL See_Comment H [Autom ated = 6656949614) message] The system which generated this result transmitted reference range : <=125. The reference range was not used to interpret this result as normal/abnormal . KYLE (test code = KYLE) Biotin has been reported to cause a negative bias, interpret results relative to patient's use of biotin. Lab Interpretation Abnormal (test code = 47678-5) [id number] 10:49:10 Test Item Value Reference Range Interpretation Comments NT-proBNP (test code 2660 pg/mL See_Comment H [Autom ated = 2089972904) message] The system which generated this result transmitted reference range : <=125. The reference range was not used to interpret this result as normal/abnormal . KYLE (test code = KYLE) Biotin has been reported to cause a negative bias, interpret results relative to patient's use of biotin. Lab Interpretation Abnormal (test code = 08643-1) [facility] METABOLIC PANEL (NA, K, CL, CO2, GLUCOSE, BUN, CREATININE, CA)2022-02-15 10:44:07 Test Item Value Reference Range Interpretation Comments NA (test code = 134 mmol/L 135-145 L 7633929767) K (test code = 3.2 mmol/L 3.5-5 L 2263014436) CL (test code = 98 mmol/L 98-108 1637582536) CO2 TOTAL (test code = 27 mmol/L 23-31 9110573362) AGAP (test code = 2-16 0027017396) BUN (test code = 19 mg/dL 7-23 5457304385) GLUCOSE (test code = 102 mg/dL 70-110 1212476435) CREATININE (test code = 0.95 mg/dL 0.5-1.04 7516706407) CALCIUM (test code = 8.5 mg/dL 8.6-10.6 L 7213621094) eGFR (test code = mL/min/1.73m2 1745725207) KYLE (test code = KYLE) Association of [...] tests). Lab Interpretation Abnormal (test code = 95844-9) [facility]20[facility] 10:44:07 Test Item Value Reference Range Interpretation Comments MAGNESIUM (test code = 2887912909) 1.8 mg/dL 1.7-2.4 Lab Interpretation (test code = Normal 43935-6) [facility]2022-09-26 10:44:07 Test Item Value Reference Range Interpretation Comments MAGNESIUM (test code = 0671654496) 1.8 mg/dL 1.7-2.4 Lab Interpretation (test code = Normal 87097-5) [facility] (NA, K, CL, CO2, GLUCOSE, BUN, CREATININE, CA)2022-02-15 10:44:07 Test Item Value Reference Range Interpretation Comments NA (test code = 134 mmol/L 135-145 L 5367799489) K (test code = 3.2 mmol/L 3.5-5.0 L 4957938773) CL (test code = 98 mmol/L 98-108 3613298447) CO2 TOTAL (test code = 27 mmol/L 23-31 5636880953) AGAP (test code = 2-16 8959787244) BUN (test code = 19 mg/dL 7-23 0248407931) GLUCOSE (test code = 102 mg/dL 70-110 0490756490) CREATININE (test code = 0.95 mg/dL 0.50-1.04 4339010687) CALCIUM (test code = 8.5 mg/dL 8.6-10.6 L 6006436276) eGFR (test code = mL/min/1.73m2 3350881996) KYLE (test code = KYLE) Association of [...] tests). Lab Interpretation Abnormal (test code = 32600-9) [facility] WITH [id number] 10:12:06 Test Item Value Reference Range Interpretation Comments WBC (test code = See_Comment L [Automated 2290-2) message] The sy stem which generated this result transmitted reference range : 4.30 - 11.10 10*3/?L. The reference range was not used to interpret this result as normal/abnormal . RBC (test code = See_Comment L [Automated 269-8) message] The sy stem which generated this [...] RDW-SD (test code = 47.8 fL 39-49.9 77633-7) RDW-CV (test code = 15.2 % 12-15.5 788-0) PLT (test code = See_Comment L [Automated 777-3) message] The sy stem which generated this result transmitted reference range : 166 - 358 10*3/ ?L. The reference r abbey was not used to interpret this result as normal/abnormal . MPV (test code = 8.9 fL 9.5-12.9 L 32504-6) NRBC/100 WBC (test See_Comment [Automat ed code = 4663639779) message] The system which generated this result transmitted reference range : 0.0 - 10.0 /100 WBCs. The refer ence range was not u sed to interpret th is result as normal/abnormal . NRBC x10^3 (test code See_Comment [Auto mated = 7646428795) message] The s ystem which generated this result transmitted reference range : 10*3/?L. The reference range was not used to interpret this result as normal/abnormal . GRAN MAT (NEUT) % 65.9 % (test code = 770-8) IMM GRAN % (test code 0.30 % = 8433901746) LYMPH % (test code = 21.0 % 736-9) MONO % (test code = 10.1 % 5905-5) EOS % (test code = 2.4 % 713-8) BASO % (test code = 0.3 % 706-2) GRAN MAT x10^3(ANC) 2.49 10*3/uL 1.88-7.09 (test code = 5115623155) IMM GRAN x10^3 (test 0-0.06 code = 3204420110) LYMPH x10^3 (test code 0.79 10*3/uL 1.32-3.29 L = 731-0) MONO x10^3 (test code 0.38 10*3/uL 0.33-0.92 = 742-7) EOS x10^3 (test code = 0.09 10*3/uL 0.03-0.39 711-2) BASO x10^3 (test code 0.01-0.07 = 704-7) Lab Interpretation Abnormal (test code = 55161-5) [facility] WITH [id number] 10:12:06 Test Item Value Reference Range Interpretation [...] RDW-SD (test code = 47.8 fL 39.0-49.9 84348-4) RDW-CV (test code = 15.2 % 12.0-15.5 788-0) PLT (test code = See_Comment L [Automated 777-3) message] The sy stem which generated this result transmitted reference range : 166 - 358 10*3/ ?L. The reference r abbey was not used to interpret this result as normal/abnormal . MPV (test code = 8.9 fL 9.5-12.9 L 98024-9) NRBC/100 WBC (test See_Comment [Automat ed code = 7986013954) message] The system which generated this result transmitted reference range : 0.0 - 10.0 /100 WBCs. The refer ence range was not u sed to interpret th is result as normal/abnormal . NRBC x10^3 (test code See_Comment [Auto mated = 8274701421) message] The s ystem which generated this result transmitted reference range : 10*3/?L. The reference range was not used to interpret this result as normal/abnormal . GRAN MAT (NEUT) % 65.9 % (test code = 770-8) IMM GRAN % (test code 0.30 % = 0495902670) LYMPH % (test code = 21.0 % 736-9) MONO % (test code = 10.1 % 5905-5) EOS % (test code = 2.4 % 713-8) BASO % (test code = 0.3 % 706-2) GRAN MAT x10^3(ANC) 2.49 10*3/uL 1.88-7.09 (test code = 2440734482) IMM GRAN x10^3 (test 0.00-0.06 code = 1759308878) LYMPH x10^3 (test code 0.79 10*3/uL 1.32-3.29 L = 731-0) MONO x10^3 (test code 0.38 10*3/uL 0.33-0.92 = 742-7) EOS x10^3 (test code = 0.09 10*3/uL 0.03-0.39 711-2) BASO x10^3 (test code 0.01-0.07 = 704-7) Lab Interpretation Abnormal (test code = 02237-5) [facility] WITH [id number] 11:18:28 Test Item Value Reference Range Interpretation Comments WBC (test code = See_Comment L [Automated 2290-2) message] The sy stem which generated this result transmitted reference range : 4.30 - 11.10 10*3/?L. The reference range was not used to interpret this result as normal/abnormal . RBC (test code = See_Comment L [Automated 569-8) message] The sy stem which generated this [...] RDW-SD (test code = 49.5 fL 39-49.9 86127-0) RDW-CV (test code = 15.5 % 12-15.5 788-0) PLT (test code = See_Comment L [Automated 777-3) message] The sy stem which generated this result transmitted reference range : 166 - 358 10*3/ ?L. The reference r abbey was not used to interpret this result as normal/abnormal . MPV (test code = 11.4 fL 9.5-12.9 62864-8) IPF % (test code = 8.7 % 1.3-7.7 H Platelet count 4446305201) measured by fluorescence method. NRBC/100 WBC (test See_Comment [Automat ed code = 2534552046) message] The system which generated this result transmitted reference range : 0.0 - 10.0 /100 WBCs. The refer ence range was not u sed to interpret th is result as normal/abnormal . NRBC x10^3 (test code See_Comment [Auto mated = 6530364325) message] The s ystem which generated this result transmitted reference range : 10*3/?L. The reference range was not used to interpret this result as normal/abnormal . GRAN MAT (NEUT) % 62.0 % (test code = 770-8) IMM GRAN % (test code 0.80 % = 0484925743) LYMPH % (test code = 22.2 % 736-9) MONO % (test code = 9.6 % 5905-5) EOS % (test code = 5.1 % 713-8) BASO % (test code = 0.3 % 706-2) GRAN MAT x10^3(ANC) 2.21 10*3/uL 1.88-7.09 (test code = 9631789031) IMM GRAN x10^3 (test 0.03 10*3/uL 0-0.06 code = 8842721930) LYMPH x10^3 (test code 0.79 10*3/uL 1.32-3.29 L = 731-0) MONO x10^3 (test code 0.34 10*3/uL 0.33-0.92 = 742-7) EOS x10^3 (test code = 0.18 10*3/uL 0.03-0.39 711-2) BASO x10^3 (test code 0.01-0.07 = 704-7) POLYCHROMASIA (test 2+ See_Comment [Automa arpit code = 42948-8) message] The system which generated this result [...] . Lab Interpretation Abnormal (test code = 16335-8) [facility] (NA, K, CL, CO2, GLUCOSE, BUN, CREATININE, CA)2022-02-13 10:39:07 Test Item Value Reference Range Interpretation Comments NA (test code = 136 mmol/L 135-145 5664430134) K (test code = 4.1 mmol/L 3.5-5 9444593334) CL (test code = 102 mmol/L 98-108 6514517177) CO2 TOTAL (test code = 27 mmol/L 23-31 2517823901) AGAP (test code = 2-16 7417703319) BUN (test code = 22 mg/dL 7-23 8151990399) GLUCOSE (test code = 94 mg/dL 70-110 0731471841) CREATININE (test code = 0.94 mg/dL 0.5-1.04 1132418135) CALCIUM (test code = 8.1 mg/dL 8.6-10.6 L 2873789065) eGFR (test code = mL/min/1.73m2 9530217955) KYLE (test code = KYLE) Association of [...] tests). Lab Interpretation Abnormal (test code = 35834-8) [facility]2022-02-12 01:50:10 Test Item Value Reference Range Interpretation Comments Height (test code = in 8911432476) Weight (test code = lbs 8296291860) Systolic BP (test code mmHg = 7375501763) Diastolic BP (test code mmHg = 3241366641) Heart Rate (test code = bpm 9642156889) BSA (test code = 1.85 m2 9916122491) IVS (test code = 1.22 cm 0622533095) Interventricular Septum 1.22 cm Diastolic Thickness by 2D (test code = 4634397) LVIDD (test code = 5.00 cm 6746270973) Left Ventricular End 117.9 mL Diastolic Volume by Teichholz Method (test code = 1291942) LVPWD (test code = 1.22 cm 4102014655) PW (test code = 1.22 cm 0.6-1.0 3337706706) EF(Teich) (test code = 74.60 % 4421014036) LVIDS (test code = 2.80 cm 2786990923) Left Ventricular End 29.9 mL Systolic Volume by Teichholz Method (test code = 6415736) FS (test code = 44 % 8034273807) EF - 2D (test code = 74.60 % 11166870) LVOT diameter (test 2.16 cm code = 5180452035) LVOT area (test code = 3.70 cm2 9315105667) Ao root diam (test code 3.40 cm = 1768421432) Aortic root (test code 3.4 cm = 4690736138) Ao root annulus (test 3.4 cm code = 6577386884) LA size (test code = 3.4 cm 1207572047) TR Peak Spencer (test code 330.0 cm/s = 0048761871) Triscuspid Valve mmHg Regurgitation Peak Gradient (test code = 7494174999) PV REGURGITATION PEAK mmHg GRADIENT (test code = 2821867653) PI dec slope (test code 137.20 cm/s2 = 0681836926) LAV(MOD-sp4) (test code 102.90 mL = 6210878059) MV Peak E Spencer (test 84.1 cm/s code = 7543958975) MV Peak A Spencer (test 40.1 cm/s code = 1453225661) E/A ratio (test code = ratio 2678688934) MV valve area p 1/2 3.70 cm2 method (test code = 1648619518) MV dec slope (test code 413.00 cm/s2 = 1735730446) MV P1/2t max spencer (test 83.70 cm/s code = 6935010619) MV Prop V (test code = 41.80 cm/s 1865195184) Tapse (test code = 1.83 cm 2222084958) LVOT stroke volume 96.90 cm3 (test code = 1733361274) LVOT peak spencer (test 125.5 cm/s code = 2789553882) LVOT mn grad (test code mmHg = 6950916143) AV LVOT peak gradient mmHg (test code = 3064308925) LVOT peak VTI (test 26.4 cm code = 0186863773) LV V1 mean (test code = 78.10 cm/s 7953493779) Aortic valve mean 103.7 cm/s velocity (test code = 5594608656) Ao peak spencer (test code 165.6 cm/s = 2692343735) Ao VTI (test code = 37.2 cm 8517826663) AV area by cont VTI 2.6 cm2 (test code = 3526155640) AV area peak spencer (test 2.8 cm2 code = 4332463471) Ao max PG (test code = 11.00 mm[Hg] 2896809704) AV peak gradient (test mmHg code = 5415948941) AV valve area (test 2.60 cm2 code = 1450330176) AV mean gradient (test mmHg code = 4045952590) LA Volume Index (BP) 55.2 mL/m2 (test code = 1607473393) LA volume (BP) (test 102.1 mL code = 2893871437) LAV(MOD-sp2) (test code 86.10 mL = 0304653952) A2C EF (test code = 61.20 % 4311478267) EF(sp2-el) (test code = 61.60 % 3833344964) SV(MOD-sp2) (test code 47.10 mL = 7318558789) LV Diastolic Volume 70.7 mL (BP) (test code = 5704159153) A4C EF (test code = 53.00 % 3592981707) EF(MOD-bp) (test code = 56.70 % 0963838523) EF(sp4-el) (test code = 53.90 % 1946880518) LV Systolic Volume (BP) 30.6 mL (test code = 6233916521) SV(MOD-bp) (test code = 40.10 mL 5237033025) SV(MOD-sp4) (test code 32.40 mL = 0048144396) SV(sp4-el) (test code = 33.10 mL 4675754130) EF (test code = 9441427178) Left Ventricular Stroke 40.1 mL Volume by 2-D Biplane-MOD (test code = 7985602) LV Diastolic Volume 38.2 mL/m2 Index (BP) (test code = 8686472110) LV Systolic Volume 16.5 mL/m2 Index (BP) (test code = 5714108312) Radiology Study observation (narrative) (test code = 97153-5) KYLE (test code = KYLE) ?Left?Ventricle: Left [...] 1.00The left ventricular wall motion is normal. [facility]ville[facility] [id number] 05:45:01 Test Item Value Reference Interpretation Comments Range TROPONIN I (test See_Comment [Automated code = 3186103964) message] The system which generated this result [...] biotin. Lab Interpretation Normal (test code = 53643-9) [facility]ville[facility] [id number] 05:41:40 Test Item Value Reference Range Interpretation Comments NT-proBNP (test code 4250 pg/mL See_Comment H [Autom ated = 8185440445) message] The system which generated this result transmitted reference range : <=125. The reference range was not used to interpret this result as normal/abnormal . KYLE (test code = KYLE) Biotin has been reported to cause a negative bias, interpret results relative to patient's use of biotin. Lab Interpretation Abnormal (test code = 09627-5) [facility] THRMPLAS [id number] 05:35:21 Test Item Value Reference Range Interpretation Comments APTT Patient (test See_Comment [Automat ed code = 3173-2) message] The system which generated this result transmitted reference range : 23 - 38 Seconds . The reference range was not used to interpr et this result as normal/abnormal . KYLE (test code = KYLE) The [facility] patient population mean normal value for aPTT is 30 seconds. Lab Interpretation Normal (test code = 10052-4) [facility] [id number] 05:35:21 Test Item Value Reference Range Interpretation Comments APTT Patient (test See_Comment [Automat ed code = 3173-2) message] The system which generated this result transmitted reference range : 23 - 38 Seconds . The reference range was not used to interpr et this result as normal/abnormal . KYLE (test code = KYLE) The [facility] patient population mean normal value for aPTT is 30 seconds. Lab Interpretation Normal (test code = 99804-2) [facility]villePROTHROMBIN TIME / [id number] 05:33:21 Test Item Value Reference Range Interpretation [...] tions. Lab Interpretation (test Normal code = 21405-0) [facility]ville[facility] METABOLIC PANEL (21678)2022-02-11 05:33:21 Test Item Value Reference Range Interpretation Comments NA (test code = 137 mmol/L 135-145 4758794589) K (test code = 4.3 mmol/L 3.5-5 3212458739) CL (test code = 103 mmol/L 98-108 4250399981) CO2 TOTAL (test code = 25 mmol/L 23-31 7264015163) AGAP (test code = 2-16 5523973220) BUN (test code = 19 mg/dL 7-23 2745307732) GLUCOSE (test code = 120 mg/dL 70-110 H 9333285165) CREATININE (test code = 1.15 mg/dL 0.5-1.04 H 0045526956) TOTAL BILI (test code = 0.9 mg/dL 0.1-1.8 5978668068) CALCIUM (test code = 8.9 mg/dL 8.6-10.6 1360412097) T PROTEIN (test code = 6.6 g/dL 6.3-8.2 7723367554) ALBUMIN (test code = 4.0 g/dL 3.5-5 9522344642) ALK PHOS (test code = 73 U/L 34-122 3369882113) ALTv (test code = 18 U/L 5-35 1742-6) AST(SGOT) (test code = 31 U/L 13-40 4649534460) eGFR (test code = mL/min/1.73m2 3046704921) KYLE (test code = KYLE) Association of [...] tests). Lab Interpretation Abnormal (test code = 63883-6) [facility]. METABOLIC PANEL (44609)2022-02-11 05:33:21 Test Item Value Reference Range Interpretation Comments NA (test code = 137 mmol/L 135-145 8485483006) K (test code = 4.3 mmol/L 3.5-5.0 3386085251) CL (test code = 103 mmol/L 98-108 1512226030) CO2 TOTAL (test code = 25 mmol/L 23-31 8059421059) AGAP (test code = 2-16 1262380907) BUN (test code = 19 mg/dL 7-23 2405221466) GLUCOSE (test code = 120 mg/dL 70-110 H 4923551401) CREATININE (test code = 1.15 mg/dL 0.50-1.04 H 1463677729) TOTAL BILI (test code = 0.9 mg/dL 0.1-1.3 0566723984) CALCIUM (test code = 8.9 mg/dL 8.6-10.6 0585813105) T PROTEIN (test code = 6.6 g/dL 6.3-8.2 3392896710) ALBUMIN (test code = 4.0 g/dL 3.5-5.0 0281809830) ALK PHOS (test code = 73 U/L 34-122 4503872501) ALTv (test code = 18 U/L 5-35 1742-6) AST(SGOT) (test code = 31 U/L 13-40 7867825754) eGFR (test code = mL/min/1.73m2 2255853459) KYLE (test code = KYLE) Association of [...] tests). Lab Interpretation Abnormal (test code = 65796-2) [facility]villePROTHROMBIN [facility] / [id number] 05:33:21 Test Item Value Reference Range Interpretation [...] tions. Lab Interpretation (test Normal code = 75793-8) [facility]ville[facility] WITH [id number] 05:14:37 Test Item Value Reference Range Interpretation Comments WBC (test code = See_Comment [Automated 3590-2) message] The sy stem which generated this result transmitted reference range : 4.30 - 11.10 10*3/?L. The reference range was not used to interpret this result as normal/abnormal . RBC (test code = See_Comment L [Automated 129-8) message] The sy stem which generated this [...] RDW-SD (test code = 47.9 fL 39-49.9 74694-6) RDW-CV (test code = 14.9 % 12-15.5 788-0) PLT (test code = See_Comment L [Automated 777-3) message] The sy stem which generated this result transmitted reference range : 166 - 358 10*3/ ?L. The reference r abbey was not used to interpret this result as normal/abnormal . MPV (test code = 9.1 fL 9.5-12.9 L 25362-8) NRBC/100 WBC (test See_Comment [Automat ed code = 1808278910) message] The system which generated this result transmitted reference range : 0.0 - 10.0 /100 WBCs. The refer ence range was not u sed to interpret th is result as normal/abnormal . NRBC x10^3 (test code See_Comment [Auto mated = [id number]) message] The s ystem which generated this result transmitted reference range : 10*3/?L. The reference range was not used to interpret this result as normal/abnormal . GRAN MAT (NEUT) % 78.5 % (test code = 770-8) IMM GRAN % (test code 0.20 % = [id number]) LYMPH % (test code = 11.6 % 736-9) MONO % (test code = 8.4 % 5905-5) EOS % (test code = 1.1 % 713-8) BASO % (test code = 0.2 % 706-2) GRAN MAT x10^3(ANC) 3.45 10*3/uL 1.88-7.09 (test code = [id number]) IMM GRAN x10^3 (test 0-0.06 code = [id number]) LYMPH x10^3 (test code 0.51 10*3/uL 1.32-3.29 L = 731-0) MONO x10^3 (test code 0.37 10*3/uL 0.33-0.92 = 742-7) EOS x10^3 (test code = 0.05 10*3/uL 0.03-0.39 711-2) BASO x10^3 (test code 0.01-0.07 = 704-7) Lab Interpretation Abnormal (test code = 34749-0) [facility] Coronavirus 2019 [id number] 18:08:00 Test Item Value Reference Range Interpretation [...] det ection of nucleic acids f rom flhBUBN-VgX-2 v irus and diagnosis of SA RS-CoV-2 virusinfection. It is an Emergency Use Authorization ( EUA) testauthorized by the U.S. FDA. BASIC METABOLIC [id number] 09:37:00 Test Item Value Reference Range Interpretation [...] = 9.0 mg/dL 8.0-10.5 N CA) PROTHROMBIN [id number] 09:32:00 Test Item Value Reference Range Interpretation [...] (to prevent recurrent infar ct). 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 Acct: [id number] Dis Date: Status: ADM IN PHONE #: [phone] Exam Date: 06/17/2021 1320 FAX #: [phone] Reason: WATCHMAN EXAMS: CPT CODE: [id number] XR CHEST 1 V 93203 PROCEDURE INFORMATION: Exam: XR Chest Exam date and time: 06/17/2021 12:09 PM Age: 66 years old Clinical indication: Other: Watchman TECHNIQUE: Imaging protocol: XR of the chest. Views: 1 view. Other technique: AP portable chest obtained, positioning not indicated as supine or otherwise. COMPARISON: DX XR CHEST 2 V 06/16/2021 10:52 AM FINDINGS: Limitations:Portable technique and lordotic positioning. Tubes, catheters and [...] skeletal abnormality. IMPRESSION: 1. Enlarged cardiac silhouette. Mildpulmonary vascular congestion may reflect component of congestive failure/volume loading. 2. Subsegmental atelectasis bilateral. at 1339 Reported and signed by: Lambert Vega M.D. CC: Lele Rahman DO; Mike Lund MD; Loli Chopra Technologist: MOLLY Vazquez) Trnscrd Date/Time/By: 06/17/2021 (7688) : By: Susanna Orig Print D/T: S: 06/17/2021 (0366) PAGE 1 Signed ReportCOVID 19 Asymptomatic IH [id number] 12:29:00 Test Item Value Reference Range Interpretation [...] high or waivedcomplexit y tests. BASIC METABOLIC [id number] 11:37:00 Test Item Value Reference Range Interpretation [...] code = 9.0 mg/dL 8.0-10.5 N CA) TIRQGRMOCC1820-41-60 11:37:00 Test Item Value Reference Range Interpretation Comments PREALBUMIN (test code = PREALB) 24.3 mg/dL 16.0-40.0 N PROTHROMBIN [id number] 11:03:00 Test Item Value Reference Range Interpretation [...] (to prevent recurrent infar ct). CBC W/AUTO THVF1922-55-41 10:59:00 Test Item Value Reference Range Interpretation [...] 3/uL 0.0-0.1 N NRBC#) - CHEST 2 [id number] 00:00:00 [facility] 1955 Sex: F FAX: Carmenza Kelly DO [phone] [place]: St: PRE FAX: Mike Scales MD [phone] Name: LIO WATTS [facility] : 1955 Age/S: 66/F [address] [place] [address] Unit #: [id number] Loc: [place] [address] Phys: Mike Lund MD Acct: [id number] Dis Date: Status: PRE SDC PHONE #: [phone] Exam Date: 06/16/2021 1120 FAX #: [phone] Reason: PREOP EXAMS: CPT CODE: [id number] XR CHEST 2 V 97054 PROCEDURE INFORMATION: Exam: XR Chest Exam date [...] MD Technologist: RT Andree(R) Trnbob Date/Time/By: 06/16/2021 (1136) : By: [email or web address] Orig Print D/T: S: 06/16/2021 (2197) PAGE 1 Signed ReportGastrointestinal [id number] 04:35:05 Test Item Value Reference Interpretation Comments [...] Rotavirus PCR (test Not Detected code = 5114994) Salmonella PCR (test Not Detected code = [...] Detected (test code = 7124) [facility] hjwiyxc7134-11-74 19:30:47 Test Item Value Reference Range Interpretation Comments Case number (test [id number] code = 0263027) Surgical pathology See link below for PDF report (test code = Lab Report 2255) Result status (test This is Supplemental code = 7956170) Report for [id number] [facility]2021-04-09 16:31:00 Test Item Value Reference Range Interpretation Comments POC Activated Clotting Time (test code 153 s = POC Activated Clotting Time) [facility]UlvpgddYVJSZVZYNY7732-78-97 16:31:00 Test Item Value Reference Range Interpretation Comments POC Activated Clotting Time (test code 153 s = POC Activated Clotting Time) [facility] HospitalIllvoduBFACEJAFXP3342-09-48 16:31:00 Test Item Value Reference Range Interpretation Comments POC Activated Clotting Time (test code 153 s = POC Activated Clotting Time) [facility] HospitalBamwexlKWXJHVPLRV6884-60-61 16:31:00 Test Item Value Reference Range Interpretation Comments POC Activated Clotting Time (test code 153 s = POC Activated Clotting Time) [facility] HospitalNllvrisHYTJLOKYLR5181-51-69 16:31:00 Test Item Value Reference Range Interpretation Comments POC Activated Clotting Time (test code 153 s = POC Activated Clotting Time) [facility] HospitalNabnlbpNMEXAADHSK0995-39-42 16:31:00 Test Item Value Reference Range Interpretation Comments POC Activated Clotting Time (test code 153 s = POC Activated Clotting Time) [facility] HospitalPsbjotpGFYHRYDMTU5296-76-27 16:31:00 Test Item Value Reference Range Interpretation Comments POC Activated Clotting Time (test code 153 s = POC Activated Clotting Time) [facility] HospitalRiopcpdGDNTHYWTAH3968-57-42 14:37:00 Test Item Value Reference Range Interpretation Comments POC Activated Clotting Time (test code 454 s = POC Activated Clotting Time) [facility] HospitalAsjpathAHASTPCFQW6330-31-24 14:37:00 Test Item Value Reference Range Interpretation Comments POC Activated Clotting Time (test code 454 s = POC Activated Clotting Time) [facility] HospitalEvqmsysYWONFBEFQJ4612-91-08 14:37:00 Test Item Value Reference Range Interpretation Comments POC Activated Clotting Time (test code 454 s = POC Activated Clotting Time) [facility] HospitalDjkhvlgAIILVGINHC4383-99-83 14:37:00 Test Item Value Reference Range Interpretation Comments POC Activated Clotting Time (test code 454 s = POC Activated Clotting Time) [facility] HospitalBzvxkabCRHEEWEELY6323-29-58 14:37:00 Test Item Value Reference Range Interpretation Comments POC Activated Clotting Time (test code 454 s = POC Activated Clotting Time) [facility] HospitalBazfhdyUYOKWNTHCU5389-42-10 14:37:00 Test Item Value Reference Range Interpretation Comments POC Activated Clotting Time (test code 454 s = POC Activated Clotting Time) [facility] HospitalSdhxfyzCJABMIIGCE3527-50-53 14:37:00 Test Item Value Reference Range Interpretation Comments POC Activated Clotting Time (test code 454 s = POC Activated Clotting Time) [facility] HospitalAxcisdsGZOOCYOTBY7894-05-13 14:13:00 Test Item Value Reference Range Interpretation Comments POC Activated Clotting Time (test code 354 s = POC Activated Clotting Time) [facility] HospitalXvwrucyUCMSGUTGHH5620-34-79 14:13:00 Test Item Value Reference Range Interpretation Comments POC Activated Clotting Time (test code 354 s = POC Activated Clotting Time) [facility] HospitalGhacfgpRJUYKFNNDJ1475-09-24 14:13:00 Test Item Value Reference Range Interpretation Comments POC Activated Clotting Time (test code 354 s = POC Activated Clotting Time) [facility] HospitalHonjbxsWVDOWMLDUG6293-04-40 14:13:00 Test Item Value Reference Range Interpretation Comments POC Activated Clotting Time (test code 354 s = POC Activated Clotting Time) [facility] HospitalCqfyqwfIMJKVJAIKB9302-77-76 14:13:00 Test Item Value Reference Range Interpretation Comments POC Activated Clotting Time (test code 354 s = POC Activated Clotting Time) [facility] HospitalUifjnbpVUJZSJGEYH0085-04-97 14:13:00 Test Item Value Reference Range Interpretation Comments POC Activated Clotting Time (test code 354 s = POC Activated Clotting Time) [facility] VjsjcgfTLDAEQKDGW5456-20-29 14:13:00 Test Item Value Reference Range Interpretation Comments POC Activated Clotting Time (test code 354 s = POC Activated Clotting Time) [facility] MYTQDMQ0527-12-17 10:37:00Negative (08/29/20 5:37 AM) [facility] VINQF0092-39-62 10:37:50285Oruqsjka HermannCHEM PANEL 2020-08-29 10:37:0028[facility]annCHE[facility] FYQOJ2717-81-96 10:37:001.01[facility]annCHE[facility] OAQVS8449-72-68 10:37:62151Taxnjkar HermannCHEM RTMHC3079-88-67 10:37:003.8[facility]annCHE[facility] QMOSZ6534-22-30 10:37:86043Jfzrpryf HermannCHEM CWAXD7672-58-34 10:37:0028[facility]annCHE[facility] UWBKZ1811-37-45 10:37:009.8 [facility]CHE[facility] FJQNN2503-29-27 10:37:0011.8[facility]annCHEM PANEL 2020-08-29 10:37:0059[facility]annCHEM WZQFL8332-98-56 10:37:002.9[facility] GjxdjfoXKQBVPBJCV5639-54-44 10:37:006.8[facility] WrvxoixUYAMZPXYRH1042-76-57 10:37:004.47[facility] PzmvvkhOZVDNCWMHO9923-49-77 10:37:0010.6[facility] EIXILYTAPK2685-41-65 10:37:0034.0[facility] HihpgrxSPVFCWVVER7798-56-11 10:37:00 76.1[facility] ObikplbFYEPSVRKKR6014-40-52 10:37:00 Test Item Value Reference Range Interpretation Comments MCH (test code = MCH) 23.8 pg 27.0-31.0 [facility] GlvhggsQYCLNWBHEN6637-19-30 10:37:0031.3[facility] HermannHEMATOLOGY 2020-08-29 10:37:0018.2[facility] MuqcaqxPIWYCKRFSS7654-82-42 10:37:50241Wmzafnty FhoqghePGYERSYYSC9992-11-24 10:37:007.5[facility] XdqatyrFYKXWXBUZJ9896-42-74 10:37:00 Test Item Value Reference Range Interpretation Comments PT (test code = PT) 12.8 s 12.0-14.7 [facility] YsvvhqxAMMUPOVJVL6505-82-39 10:37:00 Test Item Value Reference Range Interpretation Comments INR (test code = INR) 0.97 1 0.85-1.17 [facility] VtirlmmFRRCNTLEJA8056-51-38 10:37:00 Test Item Value Reference Range Interpretation Comments PTT (test code = PTT) 25.0 s 22.9-35.8 [facility] EakjcqvFUIACUADDB8249-73-33 10:37:0070.5[facility] HermannHEMATOLOGY 2020-08-29 10:37:0018.8[facility] IdtnkjlKGBFKHRIHK4257-83-18 10:37:009.5[facility] WocqklrZGUELKABQD8031-91-03 10:37:000.9[facility] WsdptyrBWNELDETOH2261-49-54 10:37:000.3[facility] GsnirfgIZRTNCLRVD4043-36-45 10:37:004.8[facility] LCUUIRGYXG0712-78-40 10:37:001.3[facility] ZyjqfgaYHTSBUQVDY8012-54-63 10:37:000.6 [facility] AzuuuavXGWWQMOVQT4103-09-36 10:37:000.1[facility]annHEMATOLOGY 2020-08-29 10:37:001+ *ABN*(08/29/20 5:37 AM)[facility] VhfaqxrEOYKFIGFTQ7605-01-43 10:37:00Not Detected (08/29/20 5:37 AM)[facility]annBLOOD BANK RESULTS 2020-08-29 10:37:00Negative (08/29/20 5:37 AM)[facility]annCHEM POGQG4958-22-55 10:37:45158Oyaqfrmm HermannCHEM RDZMF8176-59-36 10:37:0028[facility]annCHEM PYXAB6958-18-64 10:37:001.01[facility]annCHEM LFXTJ4902-39-41 10:37:47032 [facility]CHE[facility] VFGPQ5800-05-05 10:37:003.8[facility] HermannCHEM PANEL 2020-08-29 10:37:02861Czyzysfj HermannCHEM CLJXO4433-27-90 10:37:0028[facility]annCHEM HALJE6174-82-33 10:37:009.8[facility]annCHE[facility] LCTLB7934-55-61 10:37:0011.8[facility]annCHE[facility] YWXLA3830-19-31 10:37:0059[facility]annCHE[facility] YNNJN0397-95-41 10:37:002.9[facility] MznpxryHEALKLKWXQ9949-40-31 10:37:006.8 [facility] DndaatuLERUASTQIJ1775-21-98 10:37:004.47[facility]annHEMATOLOGY 2020-08-29 10:37:0010.6[facility] SzisaymBNQWYBYUIG9624-67-88 10:37:0034.0[facility] TtmgdpcGLWMEPBVGS9322-38-32 10:37:0076.1[facility] MjwulzzTPSBGAFQOO9918-72-77 10:37:00 Test Item Value Reference Range Interpretation Comments MCH (test code = MCH) 23.8 pg 27.0-31.0 [facility] OynmjboCPELYBRMSH8815-68-82 10:37:0031.3[facility]annHEMATOLOGY 2020-08-29 10:37:0018.2[facility] MmegtfyREBBWIPCEM2186-23-17 10:37:39816Hsepnzyy XtkivwvHFIOCJXIUG1939-18-21 10:37:007.5[facility] UhfxmsvIXTHPUKAAX8813-29-37 10:37:00 Test Item Value Reference Range Interpretation Comments PT (test code = PT) 12.8 s 12.0-14.7 [facility] ZmqjsaoLGEEZLZGQG5493-25-90 10:37:00 Test Item Value Reference Range Interpretation Comments INR (test code = INR) 0.97 1 0.85-1.17 [facility] CdwyblzBPYHNCZYKA9715-62-28 10:37:00 Test Item Value Reference Range Interpretation Comments PTT (test code = PTT) 25.0 s 22.9-35.8 [facility] JxzupseMSRBDEZLNP4274-02-88 10:37:0070.5[facility]annHEMATOLOGY 2020-08-29 10:37:0018.8[facility] WfsewkdYWALLXOSVN2552-17-16 10:37:009.5[facility] LhnynwqGMSERLLWIJ7408-05-07 10:37:000.9[facility] IgrocerGJRSYWYTFM9077-51-49 10:37:000.3[facility] EnacddbDUDOMNKZQW8587-72-82 10:37:004.8[facility] MIDGCXXWRM9649-29-52 10:37:001.3[facility] ZaijunyAMRWXRUBDX0190-96-13 10:37:000.6 [facility] XnciwsrSRYNZHCLMV3588-26-88 10:37:000.1[facility]annHEMATOLOGY 2020-08-29 10:37:001+ *ABN*(08/29/20 5:37 AM)[facility] GqpcbwsNXGXIBLHVD1910-40-38 10:37:00Not Detected (08/29/20 5:37 AM)[facility]annBLOOD BANK RESULTS 2020-08-29 10:37:00Negative (08/29/20 5:37 AM)[facility]annCHEM AAYNQ2489-14-51 10:37:33844Vvfiwhfs HermannCHEM MZQIM8982-45-15 10:37:0028[facility]annCHEM PYZBF2561-87-55 10:37:001.01[facility]annCHEM TEMSL6767-14-50 10:37:13191 [facility]annCHE[facility] EPHPD3799-18-10 10:37:003.8[facility]annCHEM PANEL 2020-08-29 10:37:04842Llieznlo HermannCHEM LHNZC0284-25-79 10:37:0028[facility]annCHEM FVXSU5600-85-65 10:37:009.8[facility]annCHEM KLABY9288-49-70 10:37:0011.8[facility]annCHE[facility] YEFWT2980-10-35 10:37:0059[facility]annCHEM WGKKF8164-02-91 10:37:002.9[facility] XgjkvqeUTQWCZOHKY3844-10-89 10:37:006.8 [facility] TicozooSKBIZXFCBM6999-47-33 10:37:004.47[facility]annHEMATOLOGY 2020-08-29 10:37:0010.6[facility] ThhvwruLDAGJFLGCS5419-58-29 10:37:0034.0[facility] NjovywaLTGIBENHQD2320-03-79 10:37:0076.1[facility] PuegomrSZFPHDKJPY5705-35-31 10:37:00 Test Item Value Reference Range Interpretation Comments MCH (test code = MCH) 23.8 pg 27.0-31.0 [facility] YwzdrszYCWCVQZKQJ0689-23-73 10:37:0031.3[facility]annHEMATOLOGY 2020-08-29 10:37:0018.2[facility] MzbrohhPKQRUJNSVM6107-62-98 10:37:69611Axhfzeur StvxrdyERUYNBKZMF8496-68-64 10:37:007.5[facility] OqqnbebSDQXYJLTRS8266-56-31 10:37:00 Test Item Value Reference Range Interpretation Comments PT (test code = PT) 12.8 s 12.0-14.7 [facility] BygghsnRAQFWJYHYG2916-88-02 10:37:00 Test Item Value Reference Range Interpretation Comments INR (test code = INR) 0.97 1 0.85-1.17 [facility] IycheefJQCYXJGQMZ2489-45-23 10:37:00 Test Item Value Reference Range Interpretation Comments PTT (test code = PTT) 25.0 s 22.9-35.8 [facility] CbznghjXCBHSYODUW1757-14-50 10:37:0070.5[facility]annHEMATOLOGY 2020-08-29 10:37:0018.8[facility] BulzleqWHMUHSQLOD8571-24-75 10:37:009.5[facility] AvjrokuOJXTAJPACD5155-31-70 10:37:000.9[facility] YfpkbzzUJYSLJCHEN9800-26-22 10:37:000.3[facility] JmvucntWVJORSDZPU4577-58-94 10:37:004.8[facility] AWBENJXNLU2880-27-26 10:37:001.3[facility] CuzouxrLNDFJZRORG9964-97-65 10:37:000.6 [facility] SwaopnmRBQXRQQAEG0677-77-09 10:37:000.1[facility] HermannHEMATOLOGY 2020-08-29 10:37:001+ *ABN*(08/29/20 5:37 AM)[facility] LotwskiSSDPRRQSIB1658-49-23 10:37:00Not Detected (08/29/20 5:37 AM)[facility] HermannBLOOD BANK RESULTS 2020-08-29 10:37:00Negative (08/29/20 5:37 AM)[facility]annCHEM BPHLE9543-68-85 10:37:86708Jrmvuqci HermannCHEM JIXFV8002-15-88 10:37:0028[facility]annCHEM PMVGL5375-52-38 10:37:001.01[facility]annCHEM OGTKX5204-21-66 10:37:04269 [facility]annCHE[facility] DAQZG8231-92-50 10:37:003.8[facility] HermannCHEM PANEL 2020-08-29 10:37:74585Uznsajmb HermannCHEM VOOQJ8485-02-39 10:37:0028[facility]annCHEM CHKBW0316-67-07 10:37:009.8[facility]annCHEM QQKGW8976-00-05 10:37:0011.8[facility] HermannCHEM WUOEI3093-31-25 10:37:0059[facility]annCHEM XZROT0426-26-21 10:37:002.9[facility] IcmiikmSICLCKATZQ2143-46-93 10:37:006.8 [facility] MnbkejjHRZDHBKZVV2704-77-06 10:37:004.47[facility]annHEMATOLOGY 2020-08-29 10:37:0010.6[facility] IigjbkuGBMXMEANIX8208-57-69 10:37:0034.0[facility] TbfubejOGGLIMJLNZ2816-93-67 10:37:0076.1[facility] MysirlbHYZVWCOSCZ8662-02-47 10:37:00 Test Item Value Reference Range Interpretation Comments MCH (test code = MCH) 23.8 pg 27.0-31.0 [facility] VhwghmhEHRLQPNURU1523-40-18 10:37:0031.3[facility] HermannHEMATOLOGY 2020-08-29 10:37:0018.2[facility] NvrblnjVQCHRNIJOD2105-70-64 10:37:95127Scrybseo UijweqtJUHDZMEVRF4088-29-21 10:37:007.5[facility] DbgzxebHSZEKXHJQB7204-38-90 10:37:00 Test Item Value Reference Range Interpretation Comments PT (test code = PT) 12.8 s 12.0-14.7 [facility] VctfavxDGXYCZWCHU4685-36-84 10:37:00 Test Item Value Reference Range Interpretation Comments INR (test code = INR) 0.97 1 0.85-1.17 [facility] NtrnkqbCWWHEEPAVY8463-67-64 10:37:00 Test Item Value Reference Range Interpretation Comments PTT (test code = PTT) 25.0 s 22.9-35.8 [facility] AtruwxmRCNIRZCCGD3274-63-06 10:37:0070.5[facility]annHEMATOLOGY 2020-08-29 10:37:0018.8[facility] FhfcsdsWCPILKPNBV2023-14-24 10:37:009.5[facility] TonwtmbQIKQHEDJWG3388-16-29 10:37:000.9[facility] MsxifulJQCXCPSCQR8536-88-33 10:37:000.3[facility] FygzqbqDWKJJSYSQD1750-54-03 10:37:004.8[facility] EYDAMIBGAV1084-96-45 10:37:001.3[facility] AtfhgtyVHSCOSYNUM6879-20-45 10:37:000.6 [facility] PouecsjLFVBTUDATC3812-79-47 10:37:000.1[facility]annHEMATOLOGY 2020-08-29 10:37:001+ *ABN*(08/29/20 5:37 AM)[facility] DgzgwrsSBBXSXPLZH8846-21-22 10:37:00Not Detected (08/29/20 5:37 AM)[facility]annBLOOD BANK RESULTS 2020-08-29 10:37:00Negative (08/29/20 5:37 AM)[facility]annCHEM TZRJM8787-21-37 10:37:30616Njoiagly HermannCHEM EDHTT5933-59-17 10:37:0028[facility]annCHEM FABHV1174-78-00 10:37:001.01[facility]annCHEM KUSYH8695-03-68 10:37:27009 [facility]annCHE[facility] FQVUX8617-30-26 10:37:003.8[facility] HermannCHEM PANEL 2020-08-29 10:37:20097Txhujpvw HermannCHEM YSNTR6669-51-97 10:37:0028[facility]annCHEM GKNDW8799-52-94 10:37:009.8[facility]annCHEM KZXWB5070-66-50 10:37:0011.8[facility] HermannCHEM WATHE6688-82-98 10:37:0059[facility]annCHEM GEFTJ7337-11-84 10:37:002.9[facility] KycbgeiOTHRRTRHBB0213-69-41 10:37:006.8 [facility] OhiuxofPSPLOJDDWC1669-57-07 10:37:004.47[facility]annHEMATOLOGY 2020-08-29 10:37:0010.6[facility] CnlosdvURPQPCLJCD9129-14-12 10:37:0034.0[facility] UocphmkSGIYLQDFYM4741-04-25 10:37:0076.1[facility] YaylzpxSWRFOACDJL7671-37-95 10:37:00 Test Item Value Reference Range Interpretation Comments MCH (test code = MCH) 23.8 pg 27.0-31.0 [facility] HrfuygbSBOTOYRDPH6656-63-00 10:37:0031.3[facility]annHEMATOLOGY 2020-08-29 10:37:0018.2[facility] QaifgsnNLRQBTQMDA9771-84-55 10:37:20210Iyvpjzum ZmixkpoSWUNESIKII0973-89-24 10:37:007.5[facility] CmvjbxeKKCHPPVXNP0509-87-18 10:37:00 Test Item Value Reference Range Interpretation Comments PT (test code = PT) 12.8 s 12.0-14.7 [facility] FeiwqbfBWQWWXPXUQ5369-74-94 10:37:00 Test Item Value Reference Range Interpretation Comments INR (test code = INR) 0.97 1 0.85-1.17 [facility] QabcfbcQWKEYJVIES8473-18-25 10:37:00 Test Item Value Reference Range Interpretation Comments PTT (test code = PTT) 25.0 s 22.9-35.8 [facility] NajfyneTVPVJJAFOA7232-53-04 10:37:0070.5[facility] HermannHEMATOLOGY 2020-08-29 10:37:0018.8[facility] AqqevjkLFLDNEENYU1497-37-22 10:37:009.5[facility] WreemhzUTYHOHKMEE0436-68-54 10:37:000.9[facility] MqnecjsZIYZMWIVHB8467-98-06 10:37:000.3[facility] CefeoeyUUHXGCOREG4509-40-60 10:37:004.8[facility] UHMUEWIEMN1135-65-78 10:37:001.3[facility] KmuuusbEIASKXLXEK0822-36-10 10:37:000.6 [facility] FhubhyoYTNNDBNYHM7801-90-72 10:37:000.1[facility] HermannHEMATOLOGY 2020-08-29 10:37:001+ *ABN*(08/29/20 5:37 AM)[facility] TxtlvcwSIPKVPXGUP1366-20-41 10:37:00Not Detected (08/29/20 5:37 AM)[facility] HermannBLOOD BANK RESULTS 2020-08-29 10:37:00Negative (08/29/20 5:37 AM)[facility] HermannCHEM ZLYDE9916-72-12 10:37:22918Zlslolsn HermannCHEM TFJHD7918-73-57 10:37:0028[facility] HermannCHEM VYPIF4987-68-15 10:37:001.01[facility] HermannCHEM CJSGJ0959-84-78 10:37:94969 [facility]annCHE[facility] CJZDL9369-21-81 10:37:003.8[facility] HermannCHEM PANEL 2020-08-29 10:37:62387Uopoecvx HermannCHEM FTKDE4694-09-79 10:37:0028[facility] HermannCHEM MOHMP4147-27-58 10:37:009.8[facility]annCHEM MFLBH7343-51-42 10:37:0011.8[facility]annCHEM NFPQW2430-79-23 10:37:0059[facility] HermannCHEM HANSY7714-21-11 10:37:002.9[facility] RlufnfbIATMEDXLUP2428-46-28 10:37:006.8 [facility] GaiqjtyXTSPGKQNDW7204-61-50 10:37:004.47[facility]annHEMATOLOGY 2020-08-29 10:37:0010.6[facility] YrhsxciKUUBFROVND4029-32-82 10:37:0034.0[facility] TqngauiZAHXPDWMPL9804-50-06 10:37:0076.1[facility] SlzbwnuIYYHAENKMM0253-09-50 10:37:00 Test Item Value Reference Range Interpretation Comments MCH (test code = MCH) 23.8 pg 27.0-31.0 [facility] EucgiwdMXUCHBEHZY6350-88-77 10:37:0031.3[facility] HermannHEMATOLOGY 2020-08-29 10:37:0018.2[facility] VdrtzduIJEDUNGYKY5103-77-18 10:37:11008Kycliqpm BeqrigdPYRUJYQNJY9970-80-59 10:37:007.5[facility] PaltozpMJWOJAFXAT2444-80-71 10:37:00 Test Item Value Reference Range Interpretation Comments PT (test code = PT) 12.8 s 12.0-14.7 [facility] BritkxeWSUDDKNXTY0413-31-29 10:37:00 Test Item Value Reference Range Interpretation Comments INR (test code = INR) 0.97 1 0.85-1.17 [facility] QtuepziQIWMMLFUQX2179-11-09 10:37:00 Test Item Value Reference Range Interpretation Comments PTT (test code = PTT) 25.0 s 22.9-35.8 [facility] WnrdfatKRUTFUKJZJ8466-04-46 10:37:0070.5[facility]annHEMATOLOGY 2020-08-29 10:37:0018.8[facility] MvulzvnFLHAFBSDXE9579-32-93 10:37:009.5[facility] LbfknluPRRBBGFWUH1983-35-73 10:37:000.9[facility] NofpkniVXQLAYBANE5417-46-07 10:37:000.3[facility] MguhxpvTEFHIUJOYT9929-06-69 10:37:004.8[facility] [place] UVYQNFPJTS4583-93-29 10:37:001.3[facility] BquqzrfIUMWRHYREP6919-81-44 10:37:000.6 [facility] KjsrgudUFPWXOUEVJ8327-37-36 10:37:000.1[facility]annHEMATOLOGY 2020-08-29 10:37:001+ *ABN*(08/29/20 5:37 AM)[facility] GslmhvcSGSFTVGGRZ5226-29-00 10:37:00Not Detected (08/29/20 5:37 AM)[facility] RESULTS 2020-08-29 10:37:00Negative (08/29/20 5:37 AM)[facility]annCHEM GVZNW5022-22-88 10:37:12207Ejrloytr HermannCHEM CCCXE3984-09-89 10:37:0028[facility]annCHEM MXKYQ3305-25-12 10:37:001.01[facility]annCHEM KXZYT6788-83-37 10:37:17364 [facility]annCHE[facility] TTGUR0449-31-92 10:37:003.8[facility]annCHEM PANEL 2020-08-29 10:37:71025Bauabnyg HermannCHEM LOXBY7540-09-80 10:37:0028[facility]annCHEM JEXJU1156-59-13 10:37:009.8[facility]annCHEM ANPHC3851-29-37 10:37:0011.8[facility]annCHEM ZYXRY7961-17-83 10:37:0059[facility]annCHEM JHBNP4478-44-19 10:37:002.9[facility] PqstssfEIKRJNZFFI0257-30-03 10:37:006.8 [facility] KbqucdwBIVHGRGLLF4890-53-53 10:37:004.47[facility]annHEMATOLOGY 2020-08-29 10:37:0010.6[facility] CuvyvhrKAFLHDEQBE7813-06-38 10:37:0034.0[facility] FiuejfcDFVMWQLFFV5191-64-57 10:37:0076.1[facility] RcddjowXZMGQSKBLJ5936-61-00 10:37:00 Test Item Value Reference Range Interpretation Comments MCH (test code = MCH) 23.8 pg 27.0-31.0 [facility] SbfucnaODWISOSOPM9215-75-11 10:37:0031.3[facility]annHEMATOLOGY 2020-08-29 10:37:0018.2[facility] ImoyfnmJWSFYQIHUY7701-91-25 10:37:03722Tyrxifnu NzgwepvOWLIJLVVWT9039-16-19 10:37:007.5[facility] YzgcxwhNQUKQSRWTF0576-72-18 10:37:00 Test Item Value Reference Range Interpretation Comments PT (test code = PT) 12.8 s 12.0-14.7 [facility] IabsfvxBALPKVIMSW7273-85-05 10:37:00 Test Item Value Reference Range Interpretation Comments INR (test code = INR) 0.97 1 0.85-1.17 [facility] LmxilhlRHUTNPNKCD3062-74-85 10:37:00 Test Item Value Reference Range Interpretation Comments PTT (test code = PTT) 25.0 s 22.9-35.8 [facility] KndhstvFMXQGKAXWX8811-86-84 10:37:0070.5[facility]annHEMATOLOGY 2020-08-29 10:37:0018.8[facility] ZbdiatmKAVORBUEEX6470-83-78 10:37:009.5[facility] XuglvhzVVXDZPTZRH6391-54-59 10:37:000.9[facility] EarelnfQXBKMVOECB7988-47-39 10:37:000.3[facility] XqxkfdqKJAGTNGHFX1418-16-48 10:37:004.8[facility] [place] YTNRYFBULX8108-35-29 10:37:001.3[facility] OihxmpjBSZXDQVHKX5798-31-40 10:37:000.6 [facility] [id number] 10:37:000.1[facility] 2020-[facility]29 10:37:001+ *ABN*(08/29/20 5:37 AM)[facility] [id number] 10:37:00Not Detected (08/29/20 5:37 AM)[facility]annCHLAMYDIA, GC, TV,PCR, IN [id number] 15:38:00 Test Item Value Reference Range Interpretation Comments FT (test code = CHTR) Not detected (qualifier Not Detected N value) FT (test code = Not detected (qualifier Not Detected N NGONO) value) FT (test code = TRVG) Not detected (qualifier Not Detected N value) [facility] [id number] 10:57:00 Test Item Value Reference Range Interpretation Comments Color (test code = UCOLR) Dk. Yellow Clarity (test code = UCLAR) Hazy Glucose (test code = UGLUC) NEGATIVE NEGATIVE N Bilirubin (test code = UBILI) NEGATIVE NEGATIVE N Ketones (test code = UKET) NEGATIVE NEGATIVE N Specific [place] (test code = 1.025 1.005-1.030 A [...] = None Seen None Seen N URCRYS) [facility]"
[2022-04-18] MEDS ORDERED: METHYLPREDNISOLONE 125 MG INJ ONE (23:14)
[2022-04-18] MEDS ORDERED: IPRATROPIUM BROM 0.5MG/2.5ML ONE (23:14)
[2022-04-18] MEDS ORDERED: ALBUTEROL 2.5 MG/3 ML NEB SOL ONE (23:14)
[2022-04-18] MEDS ORDERED: KETOROLAC 30 MG/ML INJ ONE (23:40)
[2022-04-18 23:50] LABS: Absolute Lymphocytes (CBC) 1.3 K/uL (0.7-4.9); Hematocrit 31.3 % (36.0-45.0); Lymphocytes % 22.5 % (15.3-44.8); MCV 92.2 fL (80-100); MPV 6.8 fL (7.6-11.3); RBC Red Blood Cell Count 3.39 M/uL (3.86-4.86)
[2022-04-19 00:41] LABS: Albumin 3.2 g/dL (3.4-5.0); Bilirubin Total 0.5 mg/dL (0.2-1.0); Protein, Total 6.8 g/dL (6.4-8.2); Troponin High Sensitivity 18.2 pg/mL (<58.9)
[2022-04-19 00:42] LABS: Potassium 2.9 mmol/L (3.5-5.1)
[2022-04-19] MEDS ORDERED: POTASSIUM CL SA 10 MEQ TAB PO ONE (00:49)
--- NOTE | 2022-04-19 01:01 | ER ---
Nurse's Notes [facility] Name: Marjan Kolb Age: 67 yrs Sex: Female : 1955 Arrival Date: 04/18/2022 Time: 22:52 Bed 10 Private MD: Diagnosis: COPD/ Chronic obstructive pulmonary disease with (acute) exacerbation;Hypokalemia Presentation: 04/18 23:05 Chief complaint: Pt with vague complaints of not feeling right and diarrhea since hb yesterday, low back pain since fall a week ago. Coronavirus screen: At this time, the client does not indicate any symptoms associated with coronavirus-19. Ebola Screen: No symptoms or risks identified at this time. Initial Sepsis Screen: Does the patient meet any 2 criteria? No. Patient's initial sepsis screen is negative. Does the patient have a suspected source of infection? No. Patient's initial sepsis screen is negative. Risk Assessment: Do you want to hurt yourself or someone else? Patient reports no desire to harm self or others. Onset of symptoms was April 17, 2022. 23:05 Method Of Arrival: Ambulatory hb 23:05 Acuity: BLAYNE 3 hb Triage Assessment: 23:07 General: Appears in no apparent distress. Behavior is calm, cooperative. Pain: Pain hb currently is 5 out of 10 on a pain scale. EENT: No signs and/or symptoms were reported regarding the EENT system. Neuro: Level of Consciousness is awake, alert, obeys commands, Oriented to person, place, time, situation. Cardiovascular: Patient's skin is warm and dry. Respiratory: Respiratory effort is even, unlabored, Respiratory pattern is regular, symmetrical. GI: Reports diarrhea. : No signs and/or symptoms were reported regarding the genitourinary system. Derm: Skin is pink, warm \T\ dry. Musculoskeletal: Reports low back pain. Historical: - Allergies: 23:07 Bactrim DS; hb 23:07 butorphanol tartrate; hb 23:07 Fentanyl; hb 23:07 Reglan; hb 23:07 Stadol; hb 23:07 sulfamethoxazole (bulk); hb 23:07 TRIMETHOPRIM; hb - PMHx: 23:07 Anxiety; Atrial Fib; Bipolar disorder; Chronic pain; COPD; esophageal varices; hb Hepatitis; HIV; Hypertension; Migraines; Panic Attacks; - PSHx: 23:07 Appendectomy; Bilateral shoulder repair; Cholecystectomy; hernia repair; R wrist SX; hb - Immunization history:: Adult Immunizations up to date. - Social history:: Smoking status: Patient denies any tobacco usage or history of. - Family history:: not pertinent. Screenin:09 Abuse screen: Denies threats or abuse. Denies injuries from another. Nutritional hb screening: No deficits noted. Tuberculosis screening: No symptoms or risk factors identified. Fall Risk None identified. Assessment: 23:09 General: See triage assessment. hb Vital Signs: 23:05 BP 204 / 106; Pulse 62; Resp 16; Temp 98.3(O); Pulse Ox 97% on R/A; Weight 78.02 kg; hb Height 5 ft. 4 in. (162.56 cm); Pain 5/10; 23:05 Body Mass Index 29.52 (78.02 kg, 162.56 cm) hb ED Course: 22:52 Patient arrived in ED. bp1 22:56 Howard Samaniego MD is Attending Physician. rt 23:07 Triage completed. hb 23:07 Arm band placed on. hb 23:09 Patient has correct armband on for positive identification. hb 23:09 No provider procedures requiring assistance completed. hb 23:14 Tata Rivera, RN is Primary Nurse. hb 23:24 Chest Single View XRAY In Process Unspecified. EDMS 23:38 Inserted saline lock: 24 gauge in right forearm, using aseptic technique. Blood hb collected. 04/19 01:27 IV discontinued, intact, bleeding controlled, No redness/swelling at site. Pressure aa9 dressing applied. Administered Medications: 04/18 23:38 Drug: DuoNeb (albuterol 2.5 mg, ipratropium 0.5 mg) (3:1) (2.5 mg - 0.5 mg) 3 ml Route: hb Nebulizer; 04/19 00:47 Follow up: Response: No adverse reaction aa9 04/18 23:38 Drug: SOLU-Medrol (methylPrednisoLONE) 125 mg Route: IVP; Site: right forearm; hb 04/19 00:47 Follow up: Response: No adverse reaction aa9 04/18 23:41 Drug: TORadol (ketorolac) 30 mg Route: IVP; Site: right forearm; hb 11/28 00:47 Follow up: Response: No adverse reaction aa9 00:51 Drug: Potassium Chloride 40 mEq Route: PO; aa9 01:27 Follow up: Response: No adverse reaction aa9 :27 Drug: morphine 4 mg Route: IVP; Infused Over: 4 mins; Site: right forearm; aa9 Medication: :27 VIS not applicable for this client. aa9 Outcome: 01:01 Discharge ordered by . rt 01:27 Discharged to home via wheelchair. aa9 : Condition: stable 01:27 Discharge instructions given to patient, Instructed on discharge instructions, follow up and referral plans. medication usage, Demonstrated understanding of instructions, follow-up care, medications, Prescriptions given X 2. :27 Patient left the ED. aa9 Signatures: Dispatcher [employer] EDMS Tata Rivera, Cinthia Momin RN, Aylin, RN RN aa9 Howard Samaniego MD MD rt
--- NOTE | 2022-04-19 01:02 | EDPHYS ---
Physician Documentation [facility] Name: Marjan Kolb Age: 67 yrs Sex: Female : 1955 Arrival Date: 04/18/2022 Time: 22:52 Bed 10 Private MD: ED Physician Howard Samaniego HPI: 04/18 23:13 This 67 yrs old Female presents to ER via Ambulatory with complaints of Doesn't Feel rt Right. 23:13 The patient has shortness of breath at rest. Onset: The symptoms/episode began/occurred rt 3 hour(s) ago. Duration: The symptoms are continuous. The patient's shortness of breath has no apparent modifying factors. Associated signs and symptoms: Pertinent positives: non-productive cough, Pertinent negatives: chest pain. Severity of symptoms: At their worst the symptoms were moderate. Presents to the ED with dyspnea that started at about bedtime. She states that she feels that her heart is beating fast. She denies any chest pain, leg swelling, other acute complaints. Symptoms are moderate in severity, no other aggravating alleviating factors.. Historical: - Allergies: 23:07 Bactrim DS; hb 23:07 butorphanol tartrate; hb 23:07 Fentanyl; hb 23:07 Reglan; hb 23:07 Stadol; hb 23:07 sulfamethoxazole (bulk); hb 23:07 TRIMETHOPRIM; hb - PMHx: 23:07 Anxiety; Atrial Fib; Bipolar disorder; Chronic pain; COPD; esophageal varices; hb Hepatitis; HIV; Hypertension; Migraines; Panic Attacks; - PSHx: 23:07 Appendectomy; Bilateral shoulder repair; Cholecystectomy; hernia repair; R wrist SX; hb - Immunization history:: Adult Immunizations up to date. - Social history:: Smoking status: Patient denies any tobacco usage or history of. - Family history:: not pertinent. ROS: 23:13 Constitutional: Negative for fever, chills, and weight loss, Eyes: Negative for injury, rt pain, redness, and discharge, ENT: Negative for injury, pain, and discharge, Neck: Negative for injury, pain, and swelling, Abdomen/GI: Negative for abdominal pain, nausea, vomiting, diarrhea, and constipation, MS/Extremity: Negative for injury and deformity, Skin: Negative for injury, rash, and discoloration, Neuro: Negative for headache, weakness, numbness, tingling, and seizure, Psych: Negative for depression, anxiety, suicide ideation, homicidal ideation, and hallucinations. 23:13 Cardiovascular: Positive for palpitations, Negative for chest pain. 23:13 Respiratory: Positive for cough, shortness of breath. Exam: 23:13 Constitutional: This is a well developed, well nourished patient who is awake, alert, rt and in no acute distress. Head/Face: Normocephalic, atraumatic. Eyes: Pupils equal round and reactive to light, extra-ocular motions intact. Lids and lashes normal. Conjunctiva and sclera are non-icteric and not injected. Cornea within normal limits. Periorbital areas with no swelling, redness, or edema. ENT: Nares patent. No nasal discharge, no septal abnormalities noted. Tympanic membranes are normal and external auditory canals are clear. Oropharynx with no redness, swelling, or masses, exudates, or evidence of obstruction, uvula midline. Mucous membranes moist. Neck: Trachea midline, no thyromegaly or masses palpated, and no cervical lymphadenopathy. Supple, full range of motion without nuchal rigidity, or vertebral point tenderness. No Meningismus. Chest/axilla: Normal chest wall appearance and motion. Nontender with no deformity. No lesions are appreciated. Cardiovascular: Regular rate and rhythm with a normal S1 and S2. No gallops, murmurs, or rubs. Normal PMI, no JVD. No pulse deficits. Abdomen/GI: Soft, non-tender, with normal bowel sounds. No distension or tympany. No guarding or rebound. No evidence of tenderness throughout. Back: No spinal tenderness. No costovertebral tenderness. Full range of motion. Skin: Warm, dry with normal turgor. Normal color with no rashes, no lesions, and no evidence of cellulitis. MS/ Extremity: Pulses equal, no cyanosis. Neurovascular intact. Full, normal range of motion. Neuro: Awake and alert, GCS 15, oriented to person, place, time, and situation. Cranial nerves II-XII grossly intact. Motor strength 5/5 in all extremities. Sensory grossly intact. Cerebellar exam normal. Normal gait. Psych: Awake, alert, with orientation to person, place and time. Behavior, mood, and affect are within normal limits. 23:13 ECG was reviewed by the Attending Physician. 23:13 Respiratory: coarse breath sounds diffusely, no respiratory distress. Vital Signs: 23:05 BP 204 / 106; Pulse 62; Resp 16; Temp 98.3(O); Pulse Ox 97% on R/A; Weight 78.02 kg; hb Height 5 ft. 4 in. (162.56 cm); Pain 5/10; 23:05 Body Mass Index 29.52 (78.02 kg, 162.56 cm) hb MDM: 23:02 Patient medically screened. rt 04/19 01:02 Differential diagnosis: CHF exacerbation, Chronic Obstructive Pulmonary Disease rt pneumonia, Pneumothorax pulmonary edema, Pulmonary Embolism. Data reviewed: vital signs, nurses notes, old medical records, lab test result(s), EKG, radiologic studies. ED course: Patient presents to the ED with dyspnea. She has no hypoxia. Does not require oxygen. Chest x-ray shows no acute abnormalities. The patient's EKG is stable, BNP appears to be at baseline. Patient found of hypokalemia, work-up is otherwise unremarkable. I suspect COPD as etiology for presentation, will supplement patient with potassium, start on steroids, patient instructed to continue with home breathing treatments and to follow-up with PCP.. 04/18 23:09 Order name: CBC with Diff; Complete Time: 00:46 rt 04/18 23:09 Order name: CMP; Complete Time: 00:46 rt 04/18 23:09 Order name: BNP; Complete Time: 00:46 rt 04/18 23:09 Order name: Troponin High Sensitivity; Complete Time: 00:46 rt 04/18 23:09 Order name: Chest Single View XRAY rt EC/27 23:13 Rate is 68 beats/min. Rhythm is regular, Normal Sinus Rhythm with No ectopy. QRS [place] rt is Normal. PA interval is normal. QRS interval is normal. QT interval is prolonged at 493 msec. No Q waves. Clinical impression: NSR w/ Non-specific ST/T Changes. Interpreted by me. Administered Medications: 23:38 Drug: DuoNeb (albuterol 2.5 mg, ipratropium 0.5 mg) (3:1) (2.5 mg - 0.5 mg) 3 ml Route: Nebulizer; 04/19 00:47 Follow up: Response: No adverse reaction aa9 04/18 23:38 Drug: SOLU-Medrol (methylPrednisoLONE) 125 mg Route: IVP; Site: right forearm; hb 04/19 00:47 Follow up: Response: No adverse reaction aa9 04/18 23:41 Drug: TORadol (ketorolac) 30 mg Route: IVP; Site: right forearm; hb 04/19 00:47 Follow up: Response: No adverse reaction aa9 00:51 Drug: Potassium Chloride 40 mEq Route: PO; aa9 01:27 Follow up: Response: No adverse reaction 9 01:27 Drug: morphine 4 mg Route: IVP; Infused Over: 4 mins; Site: right forearm; aa9 Disposition Summary: 04/19/22 01:01 Discharge Ordered Location: Home rt Problem: an acute exacerbation rt Symptoms: have improved rt Condition: Stable rt Diagnosis - COPD/ Chronic obstructive pulmonary disease with (acute) exacerbation rt - Hypokalemia rt Followup: rt - With: Private Physician - When: 2 - 3 days - Reason: Discharge Instructions: - Discharge Summary Sheet rt - Chronic Obstructive Pulmonary Disease rt - Hypokalemia rt Forms: - Medication Reconciliation Form rt - Thank You Letter rt - Antibiotic Education rt - Prescription Opioid Use rt Prescriptions: - Prednisone 20 mg Oral Tablet - take 1 tablet by ORAL route once daily for 5 days; 5 tablet; Refills: 0, rt Product Selection Permitted - Potassium Chloride 20 meq Oral Packet - take 1 packet by ORAL route once daily 1 packet in 6 (six) ounces of water or rt juice; Take after meal; 5 packet; Refills: 0, Product Selection Permitted Signatures: Dispatcher [employer] Tata Arriola RN RN Angelica Carlson RN RN aa9 Howard Samaniego MD MD rt
[2022-04-19] MEDS ORDERED: MORPHINE 2 MG/ML SYR ONE (01:17)
[2022-04-19] MEDS ORDERED: MORPHINE 4 MG/ML SYR ONE (01:19)
[2022-04-19 01:32] VITALS: BP 204/106; TEMP 98.3; O2SAT 97
--- NOTE | 2022-04-19 11:40 | RAD REPORT ---
EXAM DESCRIPTION: XR CHEST 1 VIEW CLINICAL HISTORY: COPD COMPARISON: 01/15/2022. TECHNIQUE: XR CHEST 1 VIEW 04/18/2022 11:09 PM SURGICAL SERVICES COORDINATOR FINDINGS: The heart is enlarged. Lungs are clear without consolidation, atelectasis, mass or edema. There is no pleural effusion. There is no pneumothorax. There are no acute osseous findings. Bilatera l shoulder arthroplasty changes are present. IMPRESSION: Clear lungs. Electronically signed by: Giovani Guerra MD 04/19/2022 12:31 AM SURGICAL SERVICES COORDINATOR Due to temporary technical issues with the PACS/Fluency reporting system, reports are being signed by the in house radiologists without review as a courtesy to insure prompt reporting. The interpreting radiologist is fully responsible for the content of the report.
--- NOTE | 2022-04-19 12:48 | EKG ---
Test Date: 2022-04-18 Test Time: 23:06:59 Twisting Operator: RV MEASUREMENT RESULTS: Intervals: Rate: 68 TX: 188 QRSD: 88 QT: 464 QTc: 493 [place]: P: 32 TX: 188 QRS: -5 T: -6 INTERPRETIVE STATEMENTS: Normal sinus rhythm with sinus arrhythmia Moderate voltage criteria for LVH, may be normal variant Nonspecific ST and T wave abnormality Prolonged QT Abnormal ECG Compared to ECG 04/09/2022 14:15:56 Prolonged QT interval now present Sinus bradycardia no longer present ST (T wave) deviation still present Electronically Signed On 04-19-22 12:47:56 STRATEGIC INTELLIGENCE OFFICER by Mike Lund
== END 2022-04-19 01:27 | disposition home or self-care (01) ==
LOC: ER 22:47
DX: J44.1 Chronic obstructive pulmonary disease with (acute) exacerbation (principal); E87.6 Hypokalemia; I10 Essential (primary) hypertension; Z21 Asymptomatic human immunodeficiency virus [HIV] infection status; Z88.1 Allergy status to other antibiotic agents; Z88.2 Allergy status to sulfonamides; Z88.5 Allergy status to narcotic agent; Z88.8 Allergy status to other drugs, medicaments and biological substances
CPT/HCPCS: 93005; 85025; 36415; 84484; 80053; 83880; 71045; J7613; J7644; J2930; 94640; 96374; 96375; 99284; J2270

== ENCOUNTER 2022-04-21 04:04 | Emergency (ER) | payer OTHER ==
--- OUTSIDE RECORDS SUMMARY | 2022-04-21 04:21 | XMS REPORT | Continuity of Care Document ---
:1955 Author Organization [facility] t Address [address] [place] [address] Care Team Providers Name Role Phone Urmila Rahman Primary Care Physician ELAN LIRA Attending Clinician Unavailable KINJAL, BEVERLY Attending Clinician Unavailable SANTIAGO CARDENAS Attending Clinician Unavailable UNKNOWN, ATTENDING Attending Clinician Unavailable Robbi Bal Attending Clinician Santiago Sanchez Attending Clinician [facility] Attending Clinician Unavailable Stevo RAMIREZ, Isaias Arredondo Attending Clinician Unavailable TOMY MARIE Attending Clinician Unavailable Reilly Means MD Attending Clinician Ofe Shields MD Attending Clinician Tomy Marie MD Attending Clinician Doctor Unassigned, [place] Attending Clinician Unavailable Bill COLES Attending Clinician Unavailable Bill Rose Attending Clinician CHARITY MCALLISTER Attending Clinician Unavailable Charity Mcallister MD Attending Clinician GADIEL KOEHLER Attending Clinician Unavailable Mike Lund Attending Clinician Unavailable NIKOLAI REEVES Attending Clinician Unavailable Eliseo Arce MD Attending Clinician Carol Ann DIRECTOR OF COMM[facility]ITY [facility], Sarai Lieberman Attending Clinician [phone] Ashly Pelletier MA Attending Clinician Unavailable Dagoberto Bass MD Attending Clinician [place] Evangelista Attending Clinician Lab, [facility] Attending Clinician Unavailable Monica Rodas MA Attending Clinician Unavailable Agustina Ortiz MA Attending Clinician Unavailable Rody Maguire RN Attending Clinician Unavailable Kirit Flood MD, V. Attending Clinician HEMATPOLIZ, BEVERLY Attending Clinician Unavailable Gloria Hinojosa Attending Clinician Michael Hagen RN Attending Clinician Unavailable Vani, [facility] Attending Clinician UnavailDO PORSHA Newell Attending Clinician Unavailable Gadiel Koehler MD Attending Clinician Eveline Hansen MD Attending Clinician Eladio Colorado RN Attending Clinician Unavailable Leyda Willis Attending Clinician [phone] Stefanie Montalvo RN Attending Clinician Unavailable TOMY MARIE Admitting Clinician Unavailable Tomy Marie MD Admitting Clinician Bill COLES Admitting Clinician Unavailable Lele Rahman Admitting Clinician Unavailable Mike Lund Admitting Clinician Unavailable ELISEO ARCE Admitting Clinician Unavailable DO PORSHA STREETER Admitting Clinician Unavailable Payers Payer Name Policy Type Policy Number Effective Date Expiration Date S gabino [facility] COMMUNITY PLAN [id number] 2012 STAR PLUS OON 00:00:00 [facility] [id number] 2019 DUAL COMPLETE HMO 00:00:00 [facility] [id number] 2019 PLUS 00:00:00 MEDICAID [facility] [id number] 2020 00:00:00 [facility] [id number] 2019 [facility] 00:00:00 [employer] MEDICARE ADV [id number] 2019 2019 00:00:00 00:00:00 Problems Condition Condition Condition Status Onset Resolution Last Treating Co mments Source Name Details Category Date Date Treatment Clinician Date Dyspnea, Dyspnea, Disease Active Unive rs unspecifie unspecifie 02-11 it y of d type d type 00:00: [address] Gastropare Gastropare Disease Active Overview : Methodi sis sis 4-[address] 00:00: [facility] note l might be different from the original. Added automatic ally from request for surgery [id number] Dysphagia Dysphagia Disease Active Overview: Methodi 4-[address] 00:00: [facility] 00 note l might be different from the original. Added automatic ally from request for surgery [id number] CCL / EPS CCL / EPS Diagnosis Active 2020-10-15 Memoria PVI PVI 08-19 17:07:00 l ABLATION ABLATION 00:00: Patel n W/ CARTO / W/ CARTO / 00 GA / T GA / T Active 08/19/2020 [facility] Food Food Disease Active [...] (BMI 2-19 ity of 30-39.9) 30-39.9) 00:00: [place] [facility] Anemia Anemia Disease Active 2014-05 Univers 0-03 ity of 00:00: [place] [facility] Hypovolemi Hypovolemi Disease Active 2014-05 U nivers a due to a due to 0-02 ity of hemorrhage hemorrhage 00:00: [place] [facility] Chest pain Chest pain Disease Active 2014-05 U nivers 0-02 ity of 00:00: [place] [facility] 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:00: [place] shoulder shoulder 00 Medica l arthroplas arthroplas Br anch ty ty Posttrauma Posttrauma Disease Active U nivers tic stress tic stress 08 it y of disorder disorder 00:00: [place] [facility] 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 00:00: [place] virus virus 00 Medical (HIV) (HIV) Branch disease disease Bipolar 2 Bipolar 2 Disease Active Uni vers disorder disorder 11-18 ity of 00:00: [place] [facility] Chronic Chronic Disease Active Univers hepatitis hepatitis 11-18 ity of C C 00:00: [place] [facility] Hypertensi Hypertensi Disease Active U nivers on on 11-18 ity of 00:00: [place] [facility] Allergies, Adverse Reactions, Alerts Allergy Allergy Status Severity Reaction(s) Onset Inactive Treating Comm ents Source Name Type Date Date Clinician sulfamet DA Active SV N/V [facility] hoxazole 1-25 Clear 00:00: Garcia 00 [facility] trimetho DA Active SV [facility] prim 1-25 Clear 00:00: Garcia 00 [facility] codeine DA Active SV N/V [facility] 1-25 Clear 00:00: Garcia 00 [facility] Metoclop Propensi Active [place] ramide ty [...] [facility] Natural father [facility] Natural father Hypertension [facility] Natural father [facility] Natural mother Mormonism [facility] Social History Social Habit Start Date Stop Date Quantity Comments Source History SDOH [facility] Alcohol Frequency Hospita l History SDOH [facility] Alcohol Std Drinks Hospit al History SDOK [facility] Alcohol [facility] Tobacco use and 2022-02-11 2022-02-11 Former smokeless Uni versity of exposure 00:00:00 00:00:00 tobacco user [facility] [place] Tobacco Comment 2022-02-11 2022-02-11 Smokes approx 1-2 Un iversity of 00:00:00 00:00:00 cigarettes per [place] [facility] porfirio day when she Branch smokes Exposure to 2022-01-31 2022-02-10 Not sure [facility]-CoV-2 (event) 00:00:00 22:53:00 [facility] Alcohol intake 2020-12-08 2020-12-08 Current drinker Metho dist 00:00:00 00:00:[address] [facility] (finding) Cigarettes smoked 2020-09-05 2020-09-[address] current (pack per 00:00[facility] - Reported Cigarette 2020-09-05 2020-09-05 [facility] pack-years 00:00:00 00:00:00 Hospital Alcohol Comment 2016-09-23 2016-09-23 rare [facility] 00:00:00 00:00:00 Hospital History of tobacco 2011-09-29 User of smokeless University of use 00:00:00 tobacco [facility] Sex Ass[birth year] At [birth year] [facility] 00:00:00 00:00:00 Smoking Status Start Date Stop Date Source Ex-smoker 2022-02-11 00:00:00 2022-02-11 [facility] Medications Ordered Filled Start Stop Current Ordering Indication Dosage Frequency Signature Comments Components Source Medication Medication Date Date Medication? Clinician (SIG) Name Name zoster 2021-05- Yes [id number] .5mL 0.5 mL by Univers vaccine, 0-14 10-15 9104 Intramuscu ity of recombinant 00:00: 04:59 lar route [place] (SHINGRIX, 00 :00 once now Medic al PF,) for 1 Branch injection dose. And repeat in 2-6 months hydralAZINE Yes 25mg Take 25 mg Univers (APRESOLINE 9- by mouth ity of ) 25 mg 19:28: daily. [place] tablet [address] [place] [address] lisinopril Yes 40mg Take 40 mg U [...] o f 1 mg tablet 19:28: at [place] [address] bedtime. Medical Branch traZODone 2-0 Yes 50mg Take 50 mg Un matt 100 mg 9-27 by mouth ity of tablet 19:28: at [place] [address] bedtime. Medical Branch hydralAZINE 2021-0 Yes 25mg [...] 100 mg 04 (two) Medical tablet times [place] daily. amLODIPine 2-0 Yes 10mg Take 10 mg U nivers (NORVASC) 9-27 by mouth ity of 10 mg 19:28: daily. [place] tablet 04 Medical Branch clonazePAM 2021-0 Yes 1mg Take 1 mg Un matt (KLONOPIN) 9-27 by mouth ity o f 1 mg tablet 19:28: at [place] [address] bedtime. Medical Branch traZODone 2-0 Yes 50mg Take 50 mg Un matt 100 mg 9-27 by mouth ity of tablet 19:28: at [place] [address] bedtime. Medical Branch hydralAZINE 2-0 Yes 25mg [...] o f 1 mg tablet 19:28: at [place] [address] bedtime. Medical Branch traZODone 2021-0 Yes 50mg Take 50 mg Un matt 100 mg 9-27 by mouth ity of tablet 19:28: at [place] [address] bedtime. Medical Branch hydralAZINE 2021-0 Yes 25mg [...] o f 1 mg tablet 19:28: at [place] [address] bedtime. Medical Branch traZODone 2-0 Yes 50mg Take 50 mg Un matt 100 mg 9-27 by mouth ity of tablet 19:28: at [place] [address] bedtime. Medical Branch hydralAZINE 2-0 Yes 25mg [...] o f 1 mg tablet 19:28: at [place] [address] bedtime. Medical Branch traZODone 2021-0 Yes 50mg Take 50 mg Un matt 100 mg 9-27 by mouth ity of tablet 19:28: at [place] [address] bedtime. Medical Branch hydralAZINE 2021-0 Yes 25mg [...] o f 1 mg tablet 19:28: at [place] [address] bedtime. Medical Branch traZODone 2-0 Yes 50mg Take 50 mg Un matt 100 mg 02-16 by mouth ity of tablet 19:28: at [place] 04 bedtime. Medical Branch cefpodoxime 2021- Yes [id number] 200mg Take 1 Univers 200 mg 02-16 tablet by ity of tablet 00:00: 04:59 mouth in [place] 00 :00 the Medical morning Branch and 1 tablet in the evening. Do all this for 3 days. cefpodoxime 0 2021- Yes [id number] 200mg Take 1 Univers 200 mg 02-16 tablet by ity of tablet 00:00: 04:59 mouth in [place] 00 :00 the Medical morning Branch and 1 tablet in the evening. Do all this for 3 days. haloperidol 2021- No 2mg 2 mg, Slow Univers lactate 02-15 IV Push, ity of (HALDOL) 09:00: 09:12 ONCE, 1 [place] injection 2 00 :00 dose, On Medi porfirio mg [facility] 02/15/22 at 0400, Routine hydroCHLORO 0 Yes 25mg 25 mg, Univ ers thiazide 9-25 Oral, ity of (ESIDRIX) 14:00: DAILY, [place] capsule 25 00 First dose Med ical mg on [place] [facility] 02/14/22 at 0900, Until Discontinu ed, Routine butalbital- Yes 1{tbl} 1 tablet, [facility] acetaminoph 24 Oral, ity of en-caff 18:46: Q6HPRN, [place] (ESGIC) 06 Starting Medical 50-325-40 on Sat Branch mg tablet 1 02/13/22 at tablet 1346, Until Discontinu ed, Routine, headaches dicyclomine Yes 10mg 10 mg, Univ ers (BENTYL) 9-24 Oral, QID, ity o f capsule 10 17:00: First dose [place] mg 00 on [facility] Medical 02/13/22 at Branch 1200, Until Discontinu [...] of 2,000 mg in 17:00: 18:24 Piggyback, [place] NaCl 0.9% 00 :00 Q24H ABX, Medic [...] Medical First dose Branch on [facility] 02/11/22 at 1700, Until Discontinu ed, Routine aspirin 2021- No 325mg 325 mg, Unive rs E.C. 02-11 Oral, ity of (ECOTRIN) 21:33: 21:44 ONCE, 1 [place] tablet 325 00 :00 dose, On Medic al mg [facility] 02/11/22 at 1645, Routine nitroglycer Yes .4mg 0.4 mg, Uni vers in 02-11 Sublingual ity of (NITROSTAT) 21:31: , Q5MIN [place] sublingual 20 PRN, Medical tablet 0.4 Starting Branc h mg on [facility] 02/11/22 at 1631, Until Discontinu ed, [...] of (MYCOLOG) 19:00: dose on [place] cream [facility] 02/11/22 at Branch 1400, Until Discontinu ed, Routine busPIRone 0 Yes 30mg 30 mg, Univer s (BUSPAR) 02-11 Oral, BID, ity o f tablet 30 18:00: [place] dose [place] mg 00 on [facility] 02/11/22 at Branch 1300, Until Discontinu ed, Routine raltegravir 2022-0 Yes 400mg 400 mg, Un matt (ISENTRESS) 02-11 Oral, BID, it y of tablet 400 18:00: First dose [place] mg 00 on [facility] Medical 02/11/22 at Branch 1300, Until Discontinu ed, JOE metoprolol 2021-0 Yes 100mg 100 mg, Uni vers tartrate 02-11 Oral, BID, ity o f (LOPRESSOR) 18:00: First dose [place] tablet 100 00 on [facility] Medical mg 02/11/22 at Branch 1300, Until Discontinu ed, Routine lisinopriL 0 Yes 40mg 40 mg, Unive rs (PRINIVIL,Z 02-11 Oral, BID, it y of ESTRIL) 18:00: [place] tablet 40 00 on [facility] Medical mg 02/11/22 at Branch 1300, Until Discontinu ed, Routine emtricitabi 0 Yes 1{tbl} 1 tablet, [facility] 02-11 Oral, ity of r alafen 18:00: DAILY, [place] (DESCOVY) 00 First dose Medi porfirio tablet 1 on [facility] tablet 02/11/22 at 1300, Until Discontinu ed, Routine ipratropium 0 Yes .5mg 0.5 mg, Uni vers (ATROVENT) 02-11 Inhalation ity of 0.02 % 17:57: , QIDPRN, [place] nebulizer 10 Starting Medica l solution on [facility] 0.5 mg 02/11/22 at 1257, Until Discontinu ed, Routine, Wheezing, Shortness of Breath amLODIPine 0 Yes 10mg 10 mg, Unive rs (NORVASC) 02-11 Oral, ity of tablet 10 17:30: DAILY, [place] mg 00 First dose Medical (after Branch last modificati on) on [facility] 02/11/22 at 1230, Until Discontinu ed, Routine hydrALAZINE 2021- No 25mg 25 mg, Uni vers (APRESOLINE 02-11 Oral, ity of ) tablet 25 17:30: 12:54 DAILY, [place] mg 00 :55 First dose Medical (after Branch last modificati on) on [facility] 02/11/22 at 1230, Until Discontinu ed, Routine HYDROcodone 0 2021- No 1{tbl} 1 tablet, Univers -acetaminop 02-11 Oral, ity of hen (NORCO 14:11: 17:37 Q6HPRN, [place] 5) 5-325 mg 03 :24 Starting [...] Oral, ity of (TYLENOL 14:06: 17:37 Q6HPN, [place] #3) 300-30 19 :24 Starting Medic al mg tablet 1 on [place] Branch tablet 02/11/22 at 0906, Until Tue02/12/22 at 1237, Routine, Pain (scale 4-6) sennosides- 0 Yes 1{tbl} 1 tablet, Univers docusate 02-11 Oral, ity of sodium 14:06: QDAILYPRNUnity, [place] (SENOKOT-S) 09 Starting Medi porfirio 8.6-50 mg on [facility] Branch per tablet 02/11/22 at 1 tablet 0906, Until Discontinu ed, Routine, Constipati on ondansetron 0 Yes 4mg 4 mg, Slow Univers (ZOFRAN 02-11 IV Push, ity of (PF)) 14:05: Q6HPRNUnity, [place] injection 4 59 Starting Medi porfirio mg on [place] Branch 02/11/22 at 0905, Until Discontinu ed, Routine, Nausea and Vomiting (N/V) acetaminoph 2021-0 Yes 650mg 650 mg, Un matt en 02-11 Oral, ity of (TYLENOL) 14:04: Q6HPRNUnity, [place] tablet 650 37 Starting Medic al [...] ity of ) 25 mg 09:10: daily. [facility] Branch amLODIPine 0 Yes 10mg Take 10 mg U nivers (NORVASC) 02-11 by mouth ity of 10 mg 09:10: daily. [facility] Branch piperacilli 2021- No 3.375g 3.375 [...] of therapy: 72 hours iopamidol 2021- No [id number] 60mL 60 mL, Univers (ISOVUE 02-11 Intravenou [...] Branch 02/11/22 at 0015, JOE emtricitabi Yes [id number] Take one Univers ne-tenofovi 9-12 po daily ity of r alafen 00:00: [place] (DESCOVY) 00 Medical tablet Branch emtricitabi Yes [id number] Take one Univers ne-tenofovi 9-12 po daily ity of r alafen 00:00: [place] (DESCOVY) 00 Medical tablet Branch emtricitabi Yes [id number] Take one Univers ne-tenofovi 9-12 po daily ity of r alafen 00:00: [place] (DESCOVY) 00 Medical tablet Branch emtricitabi Yes [id number] Take one Univers ne-tenofovi 9-12 po daily ity of r alafen 00:00: [place] (DESCOVY) 00 Medical tablet Branch emtricitabi Yes [id number] Take one Univers ne-tenofovi 9-12 po daily ity of r alafen 00:00: [place] (DESCOVY) 00 Medical tablet Branch emtricitabi Yes [id number] Take one Univers ne-tenofovi 9-12 po daily ity of r alafen 00:00: [place] (DESCOVY) 00 Medical tablet Branch emtricitabi Yes [id number] Take one Univers ne-tenofovi 9-12 po daily ity of r alafen 00:00: [place] (DESCOVY) 00 Medical tablet Branch naproxen 2021-0 Yes [id number] 500mg Take 1 U nivers (NAPROSYN) 7-24 tablet by ity of 500 mg 00:00: mouth in [place] tablet 00 the Medical morning Branch and 1 tablet in the evening. Take with meals. methocarbam 2-0 Yes [id number] 500mg Take 1 Univers oL 500 mg 7-24 tablet by ity o f tablet 00:00: mouth 4 [place] 00 (four) Medical times Branch daily. naproxen 2021-0 Yes [id number] 500mg Take 1 U nivers (NAPROSYN) 7-24 tablet by ity of 500 mg 00:00: mouth in [place] tablet 00 the Medical morning Branch and 1 tablet in the evening. Take with meals. methocarbam 2021-0 Yes [id number] 500mg Take 1 Univers oL 500 mg 7-24 tablet by ity o f tablet 00:00: mouth 4 [place] 00 (four) Medical times Branch daily. naproxen 2021-0 Yes [id number] 500mg Take 1 U nivers (NAPROSYN) 7-24 tablet by ity of 500 mg 00:00: mouth in [place] tablet 00 the Medical morning Branch and 1 tablet in the evening. Take with meals. methocarbam 2021-0 Yes [id number] 500mg Take 1 Univers oL 500 mg 7-24 tablet by ity o f tablet 00:00: mouth 4 [place] 00 (four) Medical times Branch daily. esomeprazol 2021- No 40mg Take 40 mg Univers e (NEXIUM) 11-20 by mouth 2 it y of 40 mg 09:12: 00:00 (two) [place] capsule 03 :00 times Medical daily. Branch amiodarone 2021- No 100mg Take 100 U nivers 100 mg 11-20 mg by ity of tablet 09:11: 00:00 mouth [place] 57 :00 daily. Medical Branch apixaban 2021- No 5mg Take 5 mg Uni vers (ELIQUIS) 5 11-20 by mouth 2 i ty of mg tablet 09:11: 00:00 (two) [place] 35 :00 times Medical daily. Branch traZODONE No Take by [facility] ers (DESYREL) 11-20 mouth at ity o f 10 mg/mL 09:10: 00:00 bedtime. [place] oral 28 :00 Medical suspension Branch hydralAZINE Yes 25mg Take 25 mg Univers (APRESOLINE 11-20 by mouth ity of ) 25 mg 08:47: daily. [place] tablet 47 Medical Branch cephALEXin 2021- No [id number] 500mg Take 1 Univers (KEFLEX) 10-24 capsule [...] 7-10). Indication s: acute pain buPROPion Yes [id number] 150mg Take 1 U nivers XL 4-12 tablet by ity of (WELLBUTRIN 00:00: mouth [place] XL) 150 mg 00 daily. Medical 24 hr Branch tablet busPIRone Yes [id number] 30mg Take 1 Un matt 30 mg 4-12 tablet by ity of tablet 00:00: mouth 2 00 (two) Medical times Branch daily. SERTraline Yes [id number] 200mg Take 2 Univers 100 mg 4-12 tablets by ity of tablet 00:00: mouth [place] 00 daily. Medical Branch buPROPion Yes [id number] 150mg Take 1 U nivers XL 4-12 tablet by ity of (WELLBUTRIN 00:00: mouth [place] XL) 150 mg 00 daily. Medical 24 hr Branch tablet busPIRone Yes [id number] 30mg Take 1 Un matt 30 mg 4-12 tablet by ity of tablet 00:00: mouth 2 [place] 00 (two) Medical times Branch daily. SERTraline Yes [id number] 200mg Take 2 Univers 100 mg 4-12 tablets by ity of tablet 00:00: mouth [place] 00 daily. Medical Branch buPROPion 2021-0 Yes [id number] 150mg Take 1 U nivers XL 4-12 tablet by ity of (WELLBUTRIN 00:00: mouth [place] XL) 150 mg 00 daily. Medical 24 hr Branch tablet busPIRone 2021-0 Yes [id number] 30mg Take 1 Un matt 30 mg 4-12 tablet by ity of tablet 00:00: mouth 2 [place] 00 (two) Medical times Branch daily. SERTraline 2021-0 Yes [id number] 200mg Take 2 Univers 100 mg 4-12 tablets by ity of tablet 00:00: mouth [place] 00 daily. Medical Branch buPROPion 2021-0 Yes [id number] 150mg Take 1 U nivers XL 4-12 tablet by ity of (WELLBUTRIN 00:00: mouth [place] XL) 150 mg 00 daily. Medical 24 hr Branch tablet busPIRone 2021-0 Yes [id number] 30mg Take 1 Un matt 30 mg 4-12 tablet by ity of tablet 00:00: mouth 2 [place] 00 (two) Medical times Branch daily. SERTraline 2021-0 Yes [id number] 200mg Take 2 Univers 100 mg 4-12 tablets by ity of tablet 00:00: mouth [place] 00 daily. Medical Branch buPROPion 2021-0 Yes [id number] 150mg Take 1 U nivers XL 4-12 tablet by ity of (WELLBUTRIN 00:00: mouth [place] XL) 150 mg 00 daily. Medical 24 hr Branch tablet busPIRone 2021-0 Yes [id number] 30mg Take 1 Un matt 30 mg 4-12 tablet by ity of tablet 00:00: mouth 2 [place] 00 (two) Medical times Branch daily. SERTraline 2021-0 Yes [id number] 200mg Take 2 Univers 100 mg 4-12 tablets by ity of tablet 00:00: mouth [place] 00 daily. Medical Branch buPROPion 2021-0 Yes [id number] 150mg Take 1 U nivers XL 4-12 tablet by ity of (WELLBUTRIN 00:00: mouth [place] XL) 150 mg 00 daily. Medical 24 hr Branch tablet busPIRone 2021-0 Yes [id number] 30mg Take 1 Un matt 30 mg 4-12 tablet by ity of tablet 00:00: mouth 2 [place] 00 (two) Medical times Branch daily. SERTraline 2021-0 Yes [id number] 200mg Take 2 Univers 100 mg 4-12 tablets by ity of tablet 00:00: mouth [place] 00 daily. Medical Branch buPROPion 2021-0 Yes [id number] 150mg Take 1 U nivers XL 4-12 tablet by ity of (WELLBUTRIN 00:00: mouth [place] XL) 150 mg 00 daily. Medical 24 hr Branch tablet busPIRone 2021-0 Yes [id number] 30mg Take 1 Un matt 30 mg 4-12 tablet by ity of tablet 00:00: mouth 2 [place] 00 (two) Medical times Branch daily. SERTraline 2021-0 Yes [id number] 200mg Take 2 Univers 100 mg 4-12 tablets by ity of tablet 00:00: mouth [place] 00 daily. Medical Branch buPROPion 2021-0 Yes [id number] 150mg Take 1 U nivers XL 4-12 tablet by ity of (WELLBUTRIN 00:00: mouth [place] XL) 150 mg 00 daily. Medical 24 hr Branch tablet busPIRone 2021-0 Yes [id number] 30mg Take 1 Un matt 30 mg 4-12 tablet by ity of tablet 00:00: mouth 2 [place] 00 (two) Medical times Branch daily. SERTraline 2021-0 Yes [id number] 200mg Take 2 Univers 100 mg 4-12 tablets by ity of tablet 00:00: mouth [place] 00 daily. Medical Branch raltegravir 2021-0 Yes [id number] 400mg Take 1 Univers (ISENTRESS) 3-28 tablet by ity of 400 mg 00:00: mouth 2 [place] tablet 00 (two) Medical times Branch daily. raltegravir 2-0 Yes [id number] 400mg Take 1 Univers (ISENTRESS) 3-28 tablet by ity of 400 mg 00:00: mouth 2 [place] tablet 00 (two) Medical times Branch daily. raltegravir 2022-0 Yes [id number] 400mg Take 1 Univers (ISENTRESS) 3-28 tablet by ity of 400 mg 00:00: mouth 2 [place] tablet 00 (two) Medical times Branch daily. raltegravir 2022-0 Yes [id number] 400mg Take 1 Univers (ISENTRESS) 3-28 tablet by ity of 400 mg 00:00: mouth 2 [place] tablet 00 (two) Medical times Branch daily. raltegravir 2021-0 Yes [id number] 400mg Take 1 Univers (ISENTRESS) 3-28 tablet by ity of 400 mg 00:00: mouth 2 [place] tablet 00 (two) Medical times Branch daily. raltegravir 2021-0 Yes [id number] 400mg Take 1 Univers (ISENTRESS) 3-28 tablet by ity of 400 mg 00:00: mouth 2 [place] tablet 00 (two) Medical times Branch daily. raltegravir 2021-0 Yes [id number] 400mg Take 1 Univers (ISENTRESS) 3-28 tablet by ity of 400 mg 00:00: mouth 2 [place] tablet 00 (two) Medical times Branch daily. raltegravir 2021-0 Yes [id number] 400mg Take 1 Univers (ISENTRESS) 3-28 tablet by ity of 400 mg 00:00: mouth 2 [place] tablet 00 (two) Medical times Branch daily. LORazepam 1 2021- No [id number] 1mg Take 1 Univers mg tablet 3-21 [...] times a tablet day. emtricitabi 2021- No [id number] Take one Univers ne-tenofovi 1-20 09-12 po daily ity of r alafen 00:00: 00:00 [place] (DESCOVY) 00 :00 Medical tablet Branch metoprolol 0 Yes [id number] Take 1 [place] tartrate 7-26 tablet Health (Lopressor) 00:00: (100 mg 100 MG 00 total) by tablet mouth 2 (two) times a day AND 0.5 tablets (50 mg total) every night. metoprolol Yes [id number] Take 1 [place] tartrate 7-26 tablet Health [...] (affected area in groin) hydrALAZINE Yes 50mg Q.[id number] Take 50 mg Methodi (APRESOLINE 7-19 [id number] mouth [address] ) 50 MG [...] area in groin) hydrALAZINE 0 Yes 50mg Q.[id number] Take 50 mg Methodi (APRESOLINE 7-19 [id number] mouth [address] ) 50 MG [...] (affected area in groin) hydrALAZINE Yes 50mg Q.[id number] Take 50 mg Methodi (APRESOLINE 7-19 [id number] by mouth 3 st ) 50 MG [...] (affected area in groin) hydrALAZINE Yes 50mg Q.[id number] Take 50 mg Methodi (APRESOLINE 7-19 [id number] [address] mouth 3 [address] ) 50 MG [...] area in groin) hydrALAZINE 0 Yes 50mg Q.[id number] Take 50 mg Methodi (APRESOLINE 7-19 [id number] [address] mouth [address] ) 50 MG [...] (affected area in groin) hydrALAZINE Yes 50mg Q.[id number] Take 50 mg Methodi (APRESOLINE 7-19 [id number] [address] mouth [address] ) 50 MG [...] (affected area in groin) hydrALAZINE Yes 50mg Q.[id number] Take 50 mg Methodi (APRESOLINE 7-19 [id number] mouth [address] ) 50 MG [...] area in groin) hydrALAZINE 0 Yes 50mg Q.[id number] Take 50 mg Methodi (APRESOLINE 7-19 [id number] mouth [address] ) 50 MG [...] area in groin) hydrALAZINE 0 Yes 50mg Q.[id number] Take 50 mg [facility] (APRESOLINE 7-19 [id number] by mouth 3 st ) 50 MG [...] (affected area in groin) hydrALAZINE Yes 50mg Q.[id number] Take 50 mg [facility] (APRESOLINE 7-19 [id number] by mouth 3 st ) 50 MG [...] area in groin) hydrALAZINE 0 Yes 50mg Q.[id number] Take 50 mg [facility] (APRESOLINE 7-19 [id number] by mouth 3 st ) 50 MG [...] area in groin) hydrALAZINE 2020-0 Yes 50mg Q.[id number] Take 50 mg [facility] (APRESOLINE 7-19 [id number] by mouth 3 st ) 50 MG [...] (affected area in groin) hydrALAZINE Yes 50mg Q.[id number] Take 50 mg [facility] (APRESOLINE 7-19 [id number] by mouth 3 st ) 50 MG [...] by st (LOPRESSOR) 10:51: mouth 2 Hos amyo 100 mg 25 (two) l tablet times [...] area in groin) hydrALAZINE 0 Yes 50mg Q.[id number] Take 50 mg [facility] (APRESOLINE 7-19 [id number] by mouth 3 st ) 50 MG [...] area in groin) hydrALAZINE 0 Yes 50mg Q.[id number] Take 50 mg [facility] (APRESOLINE 7-19 [id number] by mouth 3 st ) 50 MG [...] area in groin) hydrALAZINE 0 Yes 50mg Q.[id number] Take 50 mg [facility] (APRESOLINE 7-19 [id number] by mouth 3 st ) 50 MG [...] (affected area in groin) hydrALAZINE Yes 50mg Q.[id number] Take 50 mg [facility] (APRESOLINE 7-19 [id number] by mouth 3 st ) 50 MG [...] area in groin) hydrALAZINE 0 Yes 50mg Q.[id number] Take 50 mg [facility] (APRESOLINE 7-19 [id number] by mouth 3 st ) 50 MG [...] (affected area in groin) hydrALAZINE Yes 50mg Q.[id number] Take 50 mg [facility] (APRESOLINE 7-19 [id number] by mouth 3 st ) 50 MG [...] tablet times a day. nystatin-tr 2020-0 Yes [id number] Apply to [facility] iamcinolone 7-06 area(s) 3 ity of cream 00:00: (three) [place] 00 times Medical daily. Branch nystatin-tr 2020-0 Yes [id number] Apply to [facility] iamcinolone 7-06 area(s) 3 ity of cream 00:00: (three) [place] 00 times Medical daily. Branch nystatin-tr 2020-0 Yes [id number] Apply to [facility] iamcinolone 7-06 area(s) 3 ity of cream 00:00: (three) [place] 00 times Medical daily. Branch nystatin-tr 2020-0 Yes [id number] Apply to [facility] iamcinolone 7-06 area(s) 3 ity of cream 00:00: (three) [place] 00 times Medical daily. Branch nystatin-tr 2020-0 Yes [id number] Apply to [facility] iamcinolone 7-06 area(s) 3 ity of cream 00:00: (three) [place] 00 times Medical daily. Branch nystatin-tr 2020-0 Yes [id number] Apply to [facility] iamcinolone 7-06 area(s) 3 ity of cream 00:00: (three) [place] 00 times Medical daily. Branch nystatin-tr 2020-0 Yes [id number] Apply to [facility] iamcinolone 7-06 area(s) 3 ity of cream 00:00: (three) [place] 00 times Medical daily. Branch nystatin-tr 2020-0 Yes [id number] Apply to [facility] iamcinolone 7-06 area(s) 3 ity of cream 00:00: (three) [place] 00 times Medical daily. Branch budesonide- 2020-0 2020- No 1{puff} QD Inhale 1 [facility] formoteroL 6-25 06-[address] (SYMBICORT) 14:37: 00:00 morning. H [facility] 160-4.5 02 :00 l mcg/actuati on inhaler hydrALAZINE 0 Yes [id number] 50mg Q.[id number] Take 1 [place] (Apresoline 6-11 [id number] tablet (50 Health ) 50 MG 00:00: 3D mg total) tablet 00 by mouth 3 (three) times a day. hydrALAZINE 0 Yes [id number] 50mg Q.[id number] Take 1 [place] (Apresoline 10-31 [id number] tablet (50 [facility] ) 50 MG 00:00: [...] % 00:00: ointment 00 nystatin 2020- No [id number] Q.25D Take 5 mL [facility] (MYCOSTATIN 17 [...] 00:00: 40 MG EC 00 tablet pantoprazol 2020-2020- No 40mg Q.5D Take 2 [facility] hodi e 4-16 05-[address] (Protonix) 00:00: 04:59 (40 mg [facility] 20 MG EC 00 :00 total) by l tablet mouth 2 (two) times a day for 30 days. Amlodipine No Notes: Memor ia 4-10 (Same as: l 14:00: Norvasc) [place] emtricitabi No Notes: Caesar lisa ne 200 [...] e 4-10 Tablet l 14:00: should not [place] 00 be chewed or crushed. (Same as: [...] e 4-10 Tablet l 14:00: should not [place] 00 be chewed or crushed. (Same as: Protonix) Amiodarone No Notes: Memor ia 4-10 (Same as: l 14:00: Cordarone) [place] Amlodipine No Notes: Memor ia 4-10 (Same as: l 14:00: Norvasc) [place] emtricitabi No Notes: Caesar lisa ne 200 MG / 4-10 (Same as: l tenofovir 14:00: Descovy) Herm ariel alafenamide 00 Non-formul 25 MG Oral nancy Tablet [Descovy] Sertraline No Notes: Memor ia 4-10 (Same as: l 14:00: Zoloft) [place] pantoprazol No Notes: [place] lisa e 4-10 Tablet l 14:00: should not [place] 00 be chewed or crushed. (Same as: Protonix) Amiodarone No Notes: Memor ia 4-10 (Same as: l 14:00: Cordarone) [place] Amlodipine No Notes: Memor ia 4-10 (Same as: l 14:00: Norvasc) [place] emtricitabi No Notes: Caesar lias ne 200 [...] ia 4-10 (Same as: l 14:00: Cordarone) [place] Amlodipine No Notes: Memor ia 4-10 (Same as: l 14:00: Norvasc) [place] emtricitabi No Notes: Caesar lisa ne 200 MG / 4-10 (Same as: l tenofovir 14:00: Descovy) Herm ariel alafenamide 00 Non-formul 25 MG Oral nancy Tablet [Descovy] Sertraline No Notes: Memor ia 4-10 (Same as: l 14:00: Zoloft) [place] 00 pantoprazol No Notes: Caesar lisa e 4-10 Tablet l 14:00: should not [place] 00 be chewed or crushed. (Same as: Protonix) Amiodarone No Notes: Memor ia 4-10 (Same as: l 14:00: Cordarone) [place] 00 Amlodipine No Notes: Memor ia 4-10 (Same as: l 14:00: Norvasc) [place] 00 emtricitabi No Notes: Caesar lisa ne 200 MG / 4-10 (Same as: l tenofovir 14:00: Descovy) Herm ariel alafenamide 00 Non-formul 25 MG Oral nancy Tablet [Descovy] Sertraline No Notes: Mem[facility] ia 4-10 (Same as: l 14:00: Zoloft) [place] 00 pantoprazol No Notes: Caesar lisa e 4-10 Tablet l 14:00: should not [place] 00 be chewed or crushed. (Same as: Protonix) Amiodarone No Notes: Mem[facility] ia 4-10 (Same as: l 14:00: Cordarone) Sucralfate No Notes: May M emoria 4-10 interfere l 02:00: w/enteral [place] feeds - Take 1 hr before or [...] Memoria 4-10 Same as: l 02:00: Eliquis [place] 00 Hydralazine No Notes: Caesar lisa Hydrochlori [...] Memoria 4-10 Same as: l 02:00: Eliquis [place] Hydralazine No Notes: Caesar lisa Hydrochlori 4-10 (Same as: l de 50 MG 02:00: Apresoline Her mitchell Oral Tablet 00 ) May interfere w/enteral feedings Take With Food Sucralfate No Notes: May M emoria 4-10 interfere l 02:00: w/enteral [place] 00 feeds - Take 1 hr before or 2 hr after antacids, dairy pdt, meals & minerals - On empty stomach. For patients unable to swallow tablet, dissolve in 10mL - 30mL of water or juice and stir before giving. (Same As: Carafate) Saline No Notes: Memoria Flush 0.9% 4-10 (Same as: l 02:00: BD [place] 00 Posiflush) Eliquis No Notes: Memoria 4-10 [...] 0.9% 4-10 (Same as: l 02:00: BD [place] 00 Posiflush) Eliquis No Notes: Memoria 4-10 Same as: l 02:00: Eliquis [place] Hydralazine No Notes: Caesar lisa Hydrochlori 4-10 [...] 0.9% 4-10 (Same as: l 02:00: BD [place] 00 Posiflush) Eliquis No Notes: Memoria 4-10 [...] tartrate 4-09 tab, l 22:00: Route: PO, [place] 00 Drug form: TAB, BID, Dosing Weight [...] Notes: Memoria 4-09 (Same l 17:07: as:MORPhin [place] 00 e Sulfate) Morphine No Notes: Memoria 4-09 (Same l 17:07: as:MORPhin [place] 00 e Sulfate) Morphine No Notes: [facility]oria 4-09 (Same l 17:07: as:MORPhin [place] 00 e Sulfate) Morphine No Notes: [facility] 4-09 (Same l 17:07: as:MORPhin [place] 00 e Sulfate) Morphine No Notes: [facility] 4-09 (Same l 17:07: as:MORPhin [place] 00 e Sulfate) Morphine No Notes: Memoria [...] 08-29 Drug form: l 15:40: INJ, ONCE, [place] 00 Stop date: 08/29/20 10:40:00 CDT pantoprazol 2021-0 Yes 40 mg = 1 M emoria e 40 mg 4-09 tab, PO, l oral 15:27: Daily, # [place] enteric 00 30 tab, 0 coated Refill(s), tablet Pharmacy: [facility], 162.56, cm, 08/29/20 5:30:00 CDT, Height, 97.273, kg, 08/29/20 5:30:00 CDT, Weight pantoprazol 2021-0 Yes 40 mg = 1 M emoria e 40 mg 4-09 tab, PO, l oral 15:27: Daily, # [place] enteric 00 30 tab, 0 coated Refill(s), tablet Pharmacy: [facility] 149, 162.56, cm, 08/29/20 5:30:00 CDT, Height, 97.273, kg, 08/29/20 5:30:00 CDT, Weight pantoprazol 2021-0 Yes 40 mg = 1 M emoria e 40 mg 4-09 tab, PO, l oral 15:27: Daily, # [place] enteric 00 30 tab, 0 coated Refill(s), tablet Pharmacy: [facility] 149, 162.56, cm, 08/29/20 5:30:00 CDT, Height, 97.273, kg, 08/29/20 5:30:00 CDT, Weight pantoprazol 2021-0 Yes 40 mg = 1 M emoria e 40 mg 4-09 tab, PO, l oral 15:27: Daily, # [place] enteric 00 30 tab, 0 coated Refill(s), tablet Pharmacy: [facility] 149, 162.56, cm, 08/29/20 5:30:00 CDT, Height, 97.273, kg, 08/29/20 5:30:00 CDT, Weight pantoprazol 2021-0 Yes 40 mg = 1 M emoria e 40 mg 4-09 tab, PO, l oral 15:27: Daily, # [place] enteric 00 30 tab, 0 coated Refill(s), tablet Pharmacy: [facility] 149, 162.56, cm, 08/29/20 5:30:00 CDT, Height, 97.273, kg, 08/29/20 5:30:00 CDT, Weight pantoprazol 2021-0 Yes 40 mg = 1 M emoria e 40 mg 4-09 tab, PO, l oral 15:27: Daily, # [place] enteric 00 30 tab, 0 coated Refill(s), tablet Pharmacy: [facility], 162.56, cm, 08/29/20 5:30:00 CDT, Height, 97.273, kg, 08/29/20 5:30:00 CDT, Weight pantoprazol 1-0 Yes 40 mg = 1 M emoria e 40 mg 4-09 tab, PO, l oral 15:27: Daily, # [place] enteric 00 30 tab, 0 coated Refill(s), tablet Pharmacy: [place] [address], 162.56, cm, 08/29/20 5:30:00 CDT, Height, 97.273, kg, 08/29/20 5:30:00 CDT, Weight pantoprazol 1-0 No 40 mg = 1 M emoria e 40 mg 4-09 tab, PO, l oral 15:26: Daily, # [place] enteric 00 30 tab, 0 coated Refill(s) tablet sucralfate 1-0 Yes 1 gm = 1 Mem oria 1 g oral 4-09 tab, PO, l tablet 15:26: Q12H, # 28 Skylar nn 00 tab, 0 Refill(s), Pharmacy: [place] [address], 162.56, cm, 08/29/20 5:30:00 CDT, Height, 97.273, [...] Skylar nn 00 tab, 0 Refill(s), Pharmacy: [place] [address], 162.56, cm, 08/29/20 5:30:00 CDT, Height, 97.273, kg, 08/29/20 5:30:00 CDT, Weight pantoprazol 2020-0 No 40 mg = 1 M emoria e 40 mg 4-09 tab, PO, l oral 15:26: Daily, # [place] enteric 00 30 tab, 0 coated Refill(s) tablet sucralfate 2020-0 Yes 1 gm = 1 Mem oria 1 g oral 4-09 tab, PO, l tablet 15:26: Q12H, # 28 Syklar nn 00 tab, 0 Refill(s), Pharmacy: [place] [address], 162.56, cm, 08/29/20 5:30:00 CDT, Height, 97.273, kg, 08/29/20 5:30:00 CDT, Weight pantoprazol 2020-0 No 40 mg = 1 M emoria e 40 mg 4-09 tab, PO, l oral 15:26: Daily, # [place] enteric 00 30 tab, 0 coated Refill(s) tablet sucralfate 2020-0 Yes 1 gm = 1 Mem oria 1 g oral 4-09 tab, PO, l tablet 15:26: Q12H, # 28 Skylar nn 00 tab, 0 Refill(s), Pharmacy: [place] [address], 162.56, cm, 08/29/20 5:30:00 CDT, Height, 97.273, [...] nn 00 tab, 0 Refill(s), Pharmacy: [facility], 162.56, cm, 08/29/20 5:30:00 CDT, Height, 97.273, kg, 08/29/20 5:30:00 CDT, Weight pantoprazol 2020-0 No 40 mg = 1 M emoria e 40 mg 4-09 tab, PO, l oral 15:26: Daily, # [place] enteric 00 30 tab, 0 coated Refill(s) tablet sucralfate Yes 1 gm = 1 Mem oria 1 g oral 4-09 tab, PO, l tablet 15:26: Q12H, # 28 Skylar nn 00 tab, 0 Refill(s), Pharmacy: [facility] 149, 162.56, cm, 08/29/20 5:30:00 CDT, Height, 97.273, kg, 08/29/20 5:30:00 CDT, Weight pantoprazol No 40 mg = 1 M emoria e 40 mg 4-09 tab, PO, l oral 15:26: Daily, # [place] enteric 00 30 tab, 0 coated Refill(s) tablet sucralfate Yes 1 gm = 1 Mem oria 1 g oral 4-09 tab, PO, l tablet 15:26: Q12H, # 28 Skylar nn 00 tab, 0 Refill(s), Pharmacy: [facility], 162.56, cm, 08/29/20 5:30:00 CDT, Height, 97.273, kg, 08/29/20 5:30:00 CDT, Weight Saline No Notes: [facility]oria Flush 0.9% 4-09 (Same as: l 15:25: BD [place] 00 Posiflush) Lorazepam No Notes: Memori a 4-09 (Same as: l 15:25: Ativan) [place] 00 Saline No Notes: [facility] Flush 0.9% 4-09 (Same as: l 15:25: BD [place] 00 Posiflush) Lorazepam No Notes: Memori a 4-09 (Same as: l 15:25: Ativan) [place] 00 Saline No Notes: [facility] Flush 0.9% 4-09 (Same as: l 15:25: BD [place] 00 Posiflush) Saline No Notes: [facility] Flush 0.9% 4-09 (Same as: l 15:25: BD [place] 00 Posiflush) Lorazepam No Notes: Memori a 4-09 (Same as: l 15:25: Ativan) Lorazepam No Notes: Memori a 4-09 (Same as: l 15:25: Ativan) Saline No Notes: [facility] Flush 0.9% 4-09 (Same as: l 15:25: BD [place] Posiflush) Lorazepam No Notes: Memori a 4-09 (Same as: l 15:25: Ativan) Saline No Notes: [facility] Flush 0.9% 4-09 (Same as: l 15:25: BD [place] Posiflush) Lorazepam No Notes: Memori a 4-09 (Same as: l 15:25: Ativan) Saline No Notes: [facility] Flush 0.9% 4-09 (Same as: l 15:25: BD [place] Posiflush) Lorazepam No Notes: Memori a 4-09 (Same as: l 15:25: Ativan) Isuprel HCl No Route: IV, Memoria (ANES) 0.2 08-29 Drug form: l mg + 15:00: INJ, [place] 00 Dosing Weight 97.3, kg, Start date: 08/29/20 10:00:00 CDT, Stop date: 08/29/20 11:00:00 CDT Isuprel HCl No Route: IV, Memoria (ANES) 0.2 08-29 Drug form: l mg + 15:00: INJ, [place] Dosing Weight 97.3, kg, Start date: 08/29/20 10:00:00 CDT, Stop date: 08/29/20 11:00:00 CDT Isuprel HCl No Route: IV, Mem[facility] (ANES) 0.2 08-29 Drug form: l mg + 15:00: INJ, [place] Dosing Weight 97.3, kg, Start date: 08/29/20 10:00:00 CDT, Stop date: 08/29/20 11:00:00 CDT Isuprel HCl No Route: IV, [facility] (ANES) 0.2 08-29 Drug form: l mg + 15:00: INJ, [place] 00 Dosing Weight 97.3, kg, Start date: 08/29/20 10:00:00 CDT, Stop date: 08/29/20 11:00:00 CDT Isuprel HCl 2020-0 No Route: IV, [facility] (ANES) 0.2 08-29 Drug form: l mg + 15:00: INJ, [place] 00 Dosing Weight 97.3, kg, Start date: [...] Memori a 08-29 Route: l 14:01: IVP, [place] 00 Q5Min, Dosing Weight 97.273, kg, PRN [...] oria ne 08-29 Route: l 14:01: IVP, [place] 00 Q5Min, Dosing Weight 97.273, kg, PRN Pain Score 7-10, Start date: 08/29/20 9:01:00 CDT, Duration: 4 doses or times, Stop date: Limited # of times Flumazenil 2020-0 No 0.2 mg, Caesar lisa 08-29 Route: l 14:01: IVP, PRN, [place] 00 Dosing Weight 97.273, kg, PRN Benzodiaze pine Reversal, Initial dose, Start date: 08/29/20 9:01:00 CDT, Duration: 30 day, Stop date: 09/28/20 9:00:00 CDT Naloxone 2020-0 No 0.4 mg, Memori a 08-29 Route: l 14:01: IVP, [place] 00 Q2MIN, Dosing Weight 97.273, kg, PRN Narcotic Reversal, Start date: 08/29/20 9:01:00 CDT, Duration: 8 doses or times, Stop date: Limited # of times Ondansetron 2020-0 No 4 mg, Memor ia 08-29 Route: l 14:01: IVP, ONCE, [place] 00 Dosing Weight 97.273, kg, PRN Nausea & Vomiting, Start date: 08/29/20 9:01:00 CDT Labetalol 1-0 No 10 mg, Memori a 08-29 Route: l 14:01: IVP, [place] 00 Q5Min, Dosing Weight 97.273, kg, PRN Elevated BP, Start date: 08/29/20 9:01:00 CDT, Duration: 5 doses or times, Stop date: Limited # of times Acetaminoph 2020-0 No 1,000 mg, M emoria en 4-09 [...] oria ne 08-29 Route: l 14:01: IVP, [place] 00 Q5Min, Dosing Weight 97.273, kg, PRN Pain Score 7-10, Start date: 08/29/20 9:01:00 CDT, Duration: 4 doses or times, Stop date: Limited # of times Flumazenil 2020-0 No 0.2 mg, Caesar lisa 08-29 Route: l 14:01: IVP, PRN, [place] Dosing Weight 97.273, kg, PRN Benzodiaze pine [...] ia 08-29 Route: l 14:01: IVP, ONCE, [place] 00 Dosing Weight 97.273, kg, PRN Nausea [...] oria ne 08-29 Route: l 14:01: IVP, [place] 00 Q5Min, Dosing Weight 97.273, kg, PRN [...] ia 08-29 Route: l 14:01: IVP, ONCE, [place] 00 Dosing Weight 97.273, kg, PRN Nausea [...] 08-29 Route: PO, l 14:01: Drug form: [place] 00 TAB, ONCE, Dosing Weight 97.273, kg, [...] oria ne 08-29 Route: l 14:01: IVP, [place] 00 Q5Min, Dosing Weight 97.273, kg, PRN Pain Score 7-10, Start date: 08/29/20 9:01:00 CDT, Duration: 4 doses or times, Stop date: Limited # of times Labetalol 2021-0 No 10 mg, Memori a 08-29 Route: l 14:01: IVP, [place] 00 Q5Min, Dosing Weight 97.273, kg, PRN [...] oria ne 08-29 Route: l 14:01: IVP, [place] 00 Q5Min, Dosing Weight 97.273, kg, PRN Pain Score 7-10, Start date: 08/29/20 9:01:00 CDT, Duration: 4 doses or times, Stop date: Limited # of times Flumazenil 1-0 No 0.2 mg, Caesar lisa 08-29 Route: l 14:01: IVP, PRN, [place] 00 Dosing Weight 97.273, kg, PRN Benzodiaze pine Reversal, Initial dose, Start date: 08/29/20 9:01:00 CDT, Duration: 30 day, Stop date: 09/28/20 9:00:00 CDT Naloxone 2021-0 No 0.4 mg, Memori a 08-29 Route: l 14:01: IVP, [place] 00 Q2MIN, Dosing Weight 97.273, kg, PRN [...] ia 08-29 Route: l 14:01: IVP, ONCE, [place] 00 Dosing Weight 97.273, kg, PRN Nausea [...] 08-29 Route: PO, l 14:01: Drug form: [place] 00 TAB, ONCE, Dosing Weight 97.273, kg, [...] oria ne 08-29 Route: l 14:01: IVP, [place] 00 Q5Min, Dosing Weight 97.273, kg, PRN [...] Drug form: l 10 13:15: INJ, Start [place] microgram date: 08/29/20 8:15:00 CDT, Stop date: 08/29/20 9:15:00 CDT norepinephr 2020-0 No Route: IV, Memoria ine (ANES) 08-29 Drug form: l 10 13:15: INJ, Start [place] microgram date: 08/29/20 8:15:00 CDT, Stop date: 08/29/20 9:15:00 CDT norepinephr 2020-0 No Route: IV, Memoria ine (ANES) 08-29 Drug form: l 10 13:15: INJ, Start [place] microgram date: 08/29/20 8:15:00 CDT, Stop date: [...] 4-09 Total l 0.9% IV 12:30: Volume: [place] (ANES) 1000 00 1,000, mL Start date: 08/29/20 7:30:00 CDT, Stop date: 08/29/20 8:30:00 CDT Sodium 2021-0 No Route: IV, Memor ia Chloride 4-09 Total l 0.9% IV 12:30: Volume: [place] (ANES) 1000 00 1,000, mL Start date: 08/29/20 7:30:00 CDT, Stop date: 08/29/20 8:30:00 CDT Sodium 2021-0 No Route: IV, Memor ia Chloride 4-09 Total l 0.9% IV 12:30: Volume: [place] (ANES) 1000 00 1,000, mL Start date: 08/29/20 7:30:00 CDT, Stop date: 08/29/20 8:30:00 CDT Sodium 2021-0 No Route: IV, Memor ia Chloride 4-09 Total l 0.9% IV 12:30: Volume: [place] (ANES) 1000 00 1,000, mL Start date: 08/29/20 7:30:00 CDT, Stop date: 08/29/20 8:30:00 CDT Sodium 2021-0 No Route: IV, Memor ia Chloride 4-09 Total l 0.9% IV 12:30: Volume: [place] (ANES) 1000 00 1,000, mL Start date: 08/29/20 7:30:00 CDT, Stop date: 08/29/20 8:30:00 CDT Sodium 2021-0 No Route: IV, Memor ia Chloride 4-09 Total l 0.9% IV 12:30: Volume: [place] (ANES) 1000 00 1,000, mL Start date: 08/29/20 7:30:00 CDT, Stop date: 08/29/20 8:30:00 CDT Sodium 2021-0 No Route: IV, Memor ia Chloride 4-09 Total l 0.9% IV 12:30: Volume: [place] (ANES) 1000 00 1,000, mL Start date: [...] PO, l Hydrochlori 11:42: Q24H, # 30 [place] de 150 MG 00 tab, 0 Extended [...] 4- Q12H, tab, l Tablet 11:41: 0 [place] [Eliquis] 00 Refill(s), For Atrial Fibrilatio n apixaban 2020-0 Yes 5 mg, PO, Me moria MG Oral 4- Q12H, tab, l Tablet 11:41: 0 [place] [Eliquis] 00 Refill(s), For Atrial Fibrilatio n apixaban 2020-0 Yes 5 mg, PO, Me moria MG Oral 4- Q12H, tab, l Tablet 11:41: 0 [place] [Eliquis] 00 Refill(s), For Atrial Fibrilatio n apixaban 2020-0 Yes 5 mg, PO, Me moria MG Oral 4-09 Q12H, tab, l Tablet 11:41: 0 [place] [Eliquis] 00 Refill(s), For Atrial Fibrilatio n [...] 4 Q12H, tab, l Tablet 11:41: 0 [place] [Eliquis] 00 Refill(s), For Atrial Fibrilatio n AMIODarone Yes 200 mg = 1 M emoria 200 mg oral -09 tab, PO, l tablet 11:38: Daily, # [place] 00 90 tab, 3 Refill(s) AMIODarone Yes [...] tab, PO, l tablet 11:38: Daily, # [place] 00 90 tab, 3 Refill(s) AMIODarone Yes 200 mg = 1 M emoria 200 mg oral 4-09 tab, PO, l tablet 11:38: Daily, # [place] 00 90 tab, 3 Refill(s) AMIODarone Yes 200 mg = 1 M emoria 200 mg oral 4-09 tab, PO, l tablet 11:38: Daily, # [place] 00 90 tab, 3 Refill(s) AMIODarone Yes [...] [facility] Yes 400mg Q.5D Take 400 Met [...] [facility] e Immunization Name Name SARS-COV-2 COVID-19 [...] [place] 65[place] PFIZER COVID-19 2020-07-23 Completed [facility] MRNA VACCINATION 00:00:00 [facility] PFIZER COVID-19 2020-07-23 Completed [facility] MRNA VACCINATION 00:00:00 [facility] PFIZER COVID-19 2020-07-23 Completed [facility] MRNA VACCINATION 00:00:00 [facility] PFIZER COVID-19 2020-07-23 Completed [facility] MRNA VACCINATION 00:00:00 [facility] PFIZER COVID-19 2020-07-23 Completed [facility] MRNA VACCINATION 00:00:00 [facility] PFIZER COVID-19 2020-07-23 Completed [facility] MRNA VACCINATION 00:00:00 [facility] PFIZER COVID-19 2020-07-23 Completed [facility] MRNA VACCINATION 00:00:00 [facility] PFIZER COVID-19 2020-07-23 Completed [facility] MRNA VACCINATION 00:00:00 [facility] PFIZER COVID-19 2020-07-23 Completed [facility] MRNA VACCINATION 00:00:00 [facility] PFIZER COVID-19 2020-07-23 Completed [facility] MRNA VACCINATION 00:00:00 [facility] PFIZER COVID-19 2020-07-23 Completed [facility] MRNA VACCINATION 00:00:00 [facility] PFIZER COVID-19 2020-07-23 Completed [facility] MRNA VACCINATION 00:00:00 [facility] PFIZER COVID-19 2020-07-23 Completed [facility] MRNA VACCINATION 00:00:00 [facility] PFIZER COVID-19 2020-07-23 Completed [facility] MRNA VACCINATION 00:00:00 [facility] PFIZER COVID-19 2020-07-23 Completed [facility] MRNA VACCINATION 00:00:00 [facility] PFIZER COVID-19 2020-07-23 Completed [facility] MRNA VACCINATION 00:00:00 [facility] PFIZER COVID-19 2020-07-23 Completed [facility] MRNA VACCINATION 00:00:00 [facility] PFIZER COVID-19 2020-07-23 Completed [facility] MRNA VACCINATION 00:00:00 [facility] SARS-COV-2 COVID-19 2020-07-23 Completed [facility] PFIZER VACCINE 00:00:00 [facility] SARS-COV-2 COVID-19 2020-07-23 Completed [facility] of PFIZER VACCINE 00:00:00 [facility] SARS-COV-2 COVID-19 2020-07-23 Completed [facility] of PFIZER VACCINE 00:00:00 [facility] SARS-COV-2 COVID-19 2020-07-23 Completed [facility] of PFIZER VACCINE 00:00:00 [facility] PFIZER COVID-19 2020-07-23 Completed [facility] MRNA VACCINATION 00:00:00 [facility] PFIZER COVID-19 2020-07-02 Completed [facility] MRNA VACCINATION 00:00:00 [facility] PFIZER COVID-19 2020-07-02 Completed [facility] MRNA VACCINATION 00:00:00 [facility] PFIZER COVID-19 2020-07-02 Completed [facility] MRNA VACCINATION 00:00:00 [facility] PFIZER COVID-19 2020-07-02 Completed [facility] MRNA VACCINATION 00:00:00 [facility] PFIZER COVID-19 2020-07-02 Completed [facility] MRNA VACCINATION 00:00:00 [facility] PFIZER COVID-19 2020-07-02 Completed [facility] MRNA VACCINATION 00:00:00 [facility] PFIZER COVID-19 2020-07-02 Completed [facility] MRNA VACCINATION 00:00:00 [facility] PFIZER COVID-19 2020-07-02 Completed [facility] MRNA VACCINATION 00:00:00 [facility] PFIZER COVID-19 2020-07-02 Completed [facility] MRNA VACCINATION 00:00:00 [facility] PFIZER COVID-19 2020-07-02 Completed [facility] MRNA VACCINATION 00:00:00 [facility] PFIZER COVID-19 2020-07-02 Completed [facility] MRNA VACCINATION 00:00:00 [facility] PFIZER COVID-19 2020-07-02 Completed [facility] MRNA VACCINATION 00:00:00 [facility] PFIZER COVID-19 2020-07-02 Completed [facility] MRNA VACCINATION 00:00:00 [facility] PFIZER COVID-19 2020-07-02 Completed [facility] MRNA VACCINATION 00:00:00 [facility] PFIZER COVID-19 2020-07-02 Completed [facility] MRNA VACCINATION 00:00:00 [facility] PFIZER COVID-19 2020-07-02 Completed [facility] MRNA VACCINATION 00:00:00 [facility] PFIZER COVID-19 2020-07-02 Completed [facility] MRNA VACCINATION 00:00:00 [facility] PFIZER COVID-19 2020-07-02 Completed [facility] MRNA VACCINATION 00:00:00 [facility] SARS-COV-2 COVID-19 2020-07-02 Completed [facility] PFIZER VACCINE 00:00:00 [facility] SARS-COV-2 COVID-19 2020-07-02 Completed [facility] PFIZER VACCINE 00:00:00 [facility] SARS-COV-2 COVID-19 2020-07-02 Completed [facility] PFIZER VACCINE 00:00:00 [facility] SARS-COV-2 COVID-19 2020-07-02 Completed Unive rsity of PFIZER VACCINE 00:00:00 [facility] PFIZER COVID-19 2020-07-02 Completed [employer] MRNA VACCINATION 00:00:00 [facility] Influenza Virus 2017-03-08 Completed Universit y of Vaccine 00:00:00 [facility] Influenza Virus 2017-03-08 Completed Universit y of Vaccine 00:00:00 [facility] Influenza Virus 2017-03-08 Completed Universit y of Vaccine 00:00:00 [facility] Influenza Virus 2017-03-08 Completed Universit y of Vaccine 00:00:00 [facility] Influenza Virus 2017-03-08 Completed Universit y of Vaccine 00:00:00 [facility] Influenza Virus 2017-03-08 Completed Universit y of Vaccine 00:00:00 [facility] Influenza Virus 2017-03-08 Completed Universit y of Vaccine 00:00:00 [facility] Influenza Virus 2017-03-08 Completed Universit y of Vaccine 00:00:00 [facility] Influenza Virus 2014-01-30 Completed Universit y of Vaccine (3+ yrs) 00:00:00 [facility] Pneumococcal 13 2014-01-30 Completed Universit y of Conjugate, PCV13 00:00:00 [facility] dical (Prevnar 13) Branch Influenza Virus 2014-01-30 Completed Universit y of Vaccine (3+ yrs) 00:00:00 [facility] dical Branch Pneumococcal 13 2014-01-30 Completed Universit y of Conjugate, PCV13 00:00:00 [facility] dical (Prevnar 13) Branch Influenza Virus 2014-01-30 Completed Universit y of Vaccine (3+ yrs) 00:00:00 [facility] dical Branch Pneumococcal 13 2014-01-30 Completed Universit y of Conjugate, PCV13 00:00:00 [facility] dical (Prevnar 13) Branch Influenza Virus 2014-01-30 Completed Universit y of Vaccine (3+ yrs) 00:00:00 [facility] dical Branch Pneumococcal 13 2014-01-30 Completed Universit y of Conjugate, PCV13 00:00:00 [facility] dical (Prevnar 13) Branch Influenza Virus 2014-01-30 Completed Universit y of Vaccine (3+ yrs) 00:00:00 [facility] dical Branch Pneumococcal 13 2014-01-30 Completed Universit y of Conjugate, PCV13 00:00:00 [facility] dical (Prevnar 13) Branch Influenza Virus 2014-01-30 Completed Universit y of Vaccine (3+ yrs) 00:00:00 [facility] dical Branch Pneumococcal 13 2014-01-30 Completed Universit y of Conjugate, PCV13 00:00:00 [facility] dical (Prevnar 13) Branch Influenza Virus 2014-01-30 Completed Universit y of Vaccine (3+ yrs) 00:00:00 [facility] dical Branch Pneumococcal 13 2014-01-30 Completed Universit y of Conjugate, PCV13 00:00:00 [facility] dical (Prevnar 13) Branch Influenza Virus 2014-01-30 Completed Universit y of Vaccine (3+ yrs) 00:00:00 [facility] dical Branch Pneumococcal 13 2014-01-30 Completed Universit y of Conjugate, PCV13 00:00:00 [facility] dical (Prevnar 13) Branch Pneumococcal 2012-02-16 Completed University o f Polysaccharide, 00:00:00 [facility] PPSV23 (PNEUMOVAX) Branch Influenza Virus 2012-02-16 Completed Universit y of Vaccine 00:00:00 [facility] PPD (TB) 2012-02-16 Completed University of 00:00:00 [facility] Pneumococcal 2012-02-16 Completed University o f Polysaccharide, 00:00:00 [place] [facility] PPSV23 (PNEUMOVAX) Branch Influenza Virus 2012-02-16 Completed Universit y of Vaccine 00:00:00 [facility] PPD (TB) 2012-02-16 Completed University of 00:00:00 [facility] Pneumococcal 2012-02-16 Completed University o f Polysaccharide, 00:00:00 [place] [facility] PPSV23 (PNEUMOVAX) Branch Influenza Virus 2012-02-16 Completed Universit y of Vaccine 00:00:00 [facility] PPD (TB) 2012-02-16 Completed University of 00:00:00 [facility] Pneumococcal 2012-02-16 Completed University o f Polysaccharide, 00:00:00 [place] [facility] PPSV23 (PNEUMOVAX) Branch Influenza Virus 2012-02-16 Completed Universit y of Vaccine 00:00:00 [facility] PPD (TB) 2012-02-16 Completed University of 00:00:00 [facility] Pneumococcal 2012-02-16 Completed University o f Polysaccharide, 00:00:00 [place] [facility] PPSV23 (PNEUMOVAX) Branch Influenza Virus 2012-02-16 Completed Universit y of Vaccine 00:00:00 [facility] PPD (TB) 2012-02-16 Completed University of 00:00:00 [facility] Pneumococcal 2012-02-16 Completed University o f Polysaccharide, 00:00:00 [place] [facility] PPSV23 (PNEUMOVAX) Branch Influenza Virus 2012-02-16 Completed Universit y of Vaccine 00:00:00 [facility] PPD (TB) 2012-02-16 Completed University of 00:00:00 [facility] Pneumococcal 2012-02-16 Completed University o f Polysaccharide, 00:00:00 [place] [facility] PPSV23 (PNEUMOVAX) Branch Influenza Virus 2012-02-16 Completed Universit y of Vaccine 00:00:00 [facility] PPD (TB) 2012-02-16 Completed University of 00:00:00 [facility] Pneumococcal 2012-02-16 Completed University o f Polysaccharide, 00:00:00 [place] [facility] PPSV23 (PNEUMOVAX) Branch Influenza Virus 2012-02-16 Completed Universit y of Vaccine 00:00:00 [facility] PPD (TB) 2012-02-16 Completed University [...] 2011-09-01 Completed Unive rsity of Dosage 00:00:00 [facility] Hep B, Adol or Pedi 2011-09-01 Completed Unive rsity of Dosage 00:00:00 [facility] Hep B, Adol or Pedi 2011-03-17 Completed Unive rsity of Dosage 00:00:00 [facility] Hep B, Adol or Pedi 2011-03-17 Completed Unive rsity of Dosage 00:00:00 [facility] Hep B, Adol or Pedi 2011-03-17 Completed Unive rsity of Dosage 00:00:00 [facility] Hep B, Adol or Pedi 2011-03-17 Completed Unive rsity of Dosage 00:00:00 [facility] Hep B, Adol or Pedi 2011-03-17 Completed Unive rsity of Dosage 00:00:00 [facility] Hep B, Adol or Pedi 2011-03-17 Completed Unive rsity of Dosage 00:00:00 [facility] Hep B, Adol or Pedi 2011-03-17 Completed Unive rsity of Dosage 00:00:00 [facility] Hep B, Adol or Pedi 2011-03-17 Completed Unive rsity of Dosage 00:00:00 [facility] Influenza Virus 2011-02-10 Completed Universit y of Vaccine 00:00:00 [facility] Hep B, Adol or Pedi 2011-02-10 Completed Unive rsity of Dosage 00:00:00 [facility] Influenza Virus 2011-02-10 Completed Universit y of Vaccine 00:00:00 [facility] Hep B, Adol or Pedi 2011-02-10 Completed Unive rsity of Dosage 00:00:00 [facility] Influenza Virus 2011-02-10 Completed Universit y of Vaccine 00:00:00 [facility] Hep B, Adol or Pedi 2011-02-10 Completed Unive rsity of Dosage 00:00:00 [facility] Influenza Virus 2011-02-10 Completed Universit y of Vaccine 00:00:00 [facility] Hep B, Adol or Pedi 2011-02-10 Completed Unive rsity of Dosage 00:00:00 [facility] Influenza Virus 2011-02-10 Completed Universit y of Vaccine 00:00:00 [facility] Hep B, Adol or Pedi 2011-02-10 Completed Unive rsity of Dosage 00:00:00 [facility] Influenza Virus 2011-02-10 Completed Universit y of Vaccine 00:00:00 [facility] Hep B, Adol or Pedi 2011-02-10 Completed Unive rsity of Dosage 00:00:00 [facility] Influenza Virus 2011-02-10 Completed Universit y of Vaccine 00:00:00 [facility] Hep B, Adol or Pedi 2011-02-10 Completed Unive rsity of Dosage 00:00:00 [facility] Influenza Virus 2011-02-10 Completed Universit y of Vaccine 00:00:00 [facility] Hep B, Adol or Pedi 2011-02-10 Completed Unive rsity of Dosage 00:00:00 [facility] PPD (TB) 2010-11-18 Completed University of 00:00:00 [facility] TDAP (ADACEL) 2010-11-18 Completed University of VACCINE 00:00:00 [facility] PPD (TB) 2010-11-18 Completed University of 00:00:00 [facility] TDAP (ADACEL) 2010-11-18 Completed University of VACCINE 00:00:00 [facility] PPD (TB) 2010-11-18 Completed University of 00:00:00 [facility] TDAP (ADACEL) 2010-11-18 Completed University of VACCINE 00:00:00 [facility] PPD (TB) 2010-11-18 Completed University of 00:00:00 [facility] TDAP (ADACEL) 2010-11-18 Completed University of VACCINE 00:00:00 [facility] PPD (TB) 2010-11-18 Completed University of 00:00:00 [facility] TDAP (ADACEL) 2010-11-18 Completed University of VACCINE 00:00:00 [facility] PPD (TB) 2010-11-18 Completed University of 00:00:00 [facility] TDAP (ADACEL) 2010-11-18 Completed University of VACCINE 00:00:00 [facility] PPD (TB) 2010-11-18 Completed University of 00:00:00 [facility] TDAP (ADACEL) 2010-11-18 Completed University of VACCINE 00:00:00 [facility] PPD (TB) 2010-11-18 Completed University of 00:00:00 [facility] TDAP (ADACEL) 2010-11-18 Completed University of VACCINE 00:00:00 [facility] HEPATITIS A 2004-03-02 Completed University of 00:00:00 [facility] HEPATITIS A 2004-03-02 Completed University of 00:00:00 [facility] HEPATITIS A 2004-03-02 Completed University of 00:00:00 [facility] HEPATITIS A 2004-03-02 Completed University of 00:00:00 [facility] HEPATITIS A 2004-03-02 Completed University of 00:00:00 [facility] HEPATITIS A 2004-03-02 Completed University of 00:00:00 [facility] HEPATITIS A 2004-03-02 Completed University of 00:00:00 [facility] HEPATITIS A 2004-03-02 Completed University of 00:00:00 [facility] HEPATITIS A 2003-08-01 Completed University of 00:00:00 [facility] HEPATITIS A 2003-08-01 Completed University of 00:00:00 [facility] HEPATITIS A 2003-08-01 Completed University of 00:00:00 [facility] HEPATITIS A 2003-08-01 Completed University of 00:00:00 [facility] HEPATITIS A 2003-08-01 Completed University of 00:00:00 [facility] HEPATITIS A 2003-08-01 Completed University of 00:00:00 [facility] HEPATITIS A 2003-08-01 Completed University of 00:00:00 [facility] HEPATITIS A 2003-08-01 Completed University of 00:00:00 [facility] Pneumococcal 2001-10-04 Completed University o f Polysaccharide, 00:00:00 [facility] ical PPSV23 (PNEUMOVAX) Branch PPD (TB) 2001-10-04 Completed University of 00:00:00 [facility] Pneumococcal 2001-10-04 Completed University o f Polysaccharide, 00:00:00 [place] [facility] PPSV23 (PNEUMOVAX) Branch PPD (TB) 2001-10-04 Completed University of 00:00:00 [facility] Pneumococcal 2001-10-04 Completed University o f Polysaccharide, 00:00:00 [place] [facility] PPSV23 (PNEUMOVAX) Branch PPD (TB) 2001-10-04 Completed University of 00:00:00 [facility] Pneumococcal 2001-10-04 Completed University o f Polysaccharide, 00:00:00 [place] [facility] PPSV23 (PNEUMOVAX) Branch PPD (TB) 2001-10-04 Completed University of 00:00:00 [facility] Pneumococcal 2001-10-04 Completed University o f Polysaccharide, 00:00:00 [place] [facility] PPSV23 (PNEUMOVAX) Branch PPD (TB) 2001-10-04 Completed University of 00:00:00 [facility] Pneumococcal 2001-10-04 Completed University o f Polysaccharide, 00:00:00 [place] [facility] PPSV23 (PNEUMOVAX) Branch PPD (TB) 2001-10-04 Completed University of 00:00:00 [facility] Pneumococcal 2001-10-04 Completed University o f Polysaccharide, 00:00:00 [place] [facility] PPSV23 (PNEUMOVAX) Branch PPD (TB) 2001-10-04 Completed University of 00:00:00 [facility] Pneumococcal 2001-10-04 Completed University o f Polysaccharide, 00:00:00 [place] [facility] PPSV23 (PNEUMOVAX) Branch PPD (TB) 2001-10-04 Completed University of 00:00:00 [facility] Vital Signs Vital Name Observation Time Observation Value Comments Source Systolic blood 2022-02-16 21:41:00 169 mm[Hg] Univer sity of pressure [facility] Diastolic blood 2022-02-16 21:41:00 86 mm[Hg] Unive rsity of pressure [facility] Heart rate 2022-02-16 21:41:00 51 /min [facility] Body temperature 2022-02-16 21:41:00 36.56 Amina [facility] 2022-02-16 21:41:00 17 /min [facility] Oxygen saturation in 2022-02-16 21:41:00 98 /min [facility] Arterial blood by [facility] Pulse oximetry Branch Body height 2022-02-11 16:02:00 162.6 cm Universi ty of [facility] Body weight 2022-02-11 16:02:00 79.379 kg Universi ty [facility] BMI 2022-02-11 16:02:00 30.04 kg/m2 Universi ty [facility] Systolic blood 2021-11-20 13:47:00 165 mm[Hg] Univer sity of [facility] Diastolic blood 2021-11-20 13:47:00 83 mm[Hg] Unive rsity of [facility] Heart rate 2021-11-20 13:47:00 58 /min Universi ty [facility] Body temperature 2021-11-20 13:42:00 36.39 Amina [facility] Respiratory rate 2021-11-20 13:42:00 16 /min [facility] Body height 2021-11-20 13:42:00 162.6 cm Universi ty [facility] Body weight 2021-11-20 13:42:00 84.369 kg Universi ty [facility] BMI 2021-11-20 13:42:00 31.93 kg/m2 Universi ty [facility] Systolic blood 2021-07-14 15:18:00 142 mm[Hg] [...] 2022-03-05 15:23:00 167 mm[Hg] Univer sity of [facility] Diastolic blood 2022-03-05 15:23:00 105 mm[Hg] Unive rsity of [facility] Heart rate 2022-03-05 15:23:00 49 /min [facility] Body temperature 2022-03-05 15:18:00 36.67 Amina [facility] Respiratory rate 2022-03-05 15:18:00 18 /min [facility] Body height 2022-03-05 15:18:00 162.6 cm [facility] Body weight 2022-03-05 15:18:00 74.707 kg [facility] BMI 2022-03-05 15:18:00 28.27 kg/m2 [facility] Oxygen saturation in 2022-02-16 21:41:00 98 /min University Arterial blood by [facility] Pulse oximetry Branch Systolic blood 2020-12-08 15:48:00 125 mm[Hg] [facility] pressure Diastolic blood 2020-12-08 15:48:00 76 mm[Hg] [facility] pressure Heart rate 2020-12-08 15:48:00 64 /min [facility] Body temperature 2020-12-08 15:48:00 36.61 Amina [facility] Respiratory rate 2020-12-08 15:48:00 17 /min [facility] Body height 2020-12-08 15:48:00 162.6 cm [facility] Body weight 2020-12-08 15:48:00 98.884 kg [facility] BMI 2020-12-08 15:48:00 37.42 kg/m2 [facility] Oxygen saturation in 2020-12-08 15:48:00 97 /min [facility] Arterial blood by Pulse oximetry Respitory Rate 2020-08-30 13:00:00 Memori al Marty Systolic (mm Hg) 2020-08-30 13:00:00 Caesar rial [place] Diastolic (mm Hg) 2020-08-30 13:00:00 Mem orial [place] Systolic (mm Hg) 2020-08-30 11:00:00 Caesar rial [place] Diastolic (mm Hg) 2020-08-30 11:00:00 Mem orial [place] Temperature Oral (F) 2020-08-30 11:00:00 98.4 F [facility] [place] Respitory Rate 2020-08-30 11:00:00 Memori al [facility] Respitory Rate 2020-08-30 10:00:00 Darien al [place] Systolic (mm Hg) 2020-08-30 10:00:00 Caesar cheung [place] Diastolic (mm Hg) 2020-08-30 10:00:00 Mem orial Marty Temperature Oral (F) 2020-08-30 00:00:00 96.9 F [facility] [place] Temperature Oral (F) 2020-08-29 11:26:00 97.6 F [facility] [place] Height 2020-08-29 10:30:00 162[facility]56 [facility] 2020-08-29 10:30:00 [facility] BMI Calculated 2020-08-29 10:30:00 [place] Procedures Procedure Date / Time Performing Clinician Source Performed SARS-COV-2 COVID-19 2022-03-05 16:09:27 [facility] DIMITRIS-SUCROSE VACCINE [address] [place] [address] Branch YRS+, BIVALENT 0.3ML, IM, (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) FLU 2022-03-05 16:09:27 [facility] VACC(),65+YR,0.5 Medica l Branch ML,IM,ADJUVANTED,QUAD(FLUA D) MAGNESIUM 2022-02-15 09:41:[address] [facility] BASIC METABOLIC PANEL (NA, 2022-02-15 09:41:00 Radha Sofia [facility] K, CL, CO2, GLUCOSE, BUN, Medica l Branch CREATININE, CA) CBC WITH DIFF 2022-02-15 09:41:[address] [facility] N-TERMINAL PRO-BNP 2022-02-15 09:41:00 Sofia Garcia [facility] CBC WITH DIFF 2022-02-15 09:41:[address] [facility] BASIC METABOLIC PANEL (NA, 2022-02-15 09:41:00 Radha [facility] K, CL, CO2, GLUCOSE, BUN, Medica l Branch CREATININE, CA) MAGNESIUM 2022-02-15 09:41:[address] [facility] N-TERMINAL PRO-BNP 2022-02-15 09:41:00 Sofia Garcia [facility] BASIC METABOLIC PANEL (NA, 2022-02-13 09:40:00 [facility], CO2, GLUCOSE, BUN, Medica l Branch CREATININE, CA) CBC WITH DIFF 2022-02-13 09:40:00 Radha [facility] BASIC METABOLIC PANEL (NA, 2022-02-13 09:40:00 Sofia Garcia [facility] K, CL, CO2, GLUCOSE, BUN, Medica l Branch CREATININE, CA) CBC WITH DIFF 2022-02-13 09:40:00 Radha [facility] TROPONIN I 2022-02-11 23:41:00 Radha [facility] N-TERMINAL PRO-BNP 2022-02-11 23:41:00 Radha [facility] TROPONIN I 2022-02-11 23:41:00 Radha [facility] N-TERMINAL PRO-BNP 2022-02-11 23:41:00 Sofia Garcia [facility] HB ECG ROUTINE & RHYTHM 2022-02-11 22:15:36 Sofia Garcia Uni versity [facility] STRIP [facility] TRANSTHORACIC ECHO (TTE) 2022-02-11 21:26:50 [facility] (TTE) 2022-02-11 21:26:50 Sofia Garcia Un iversity [facility] CT ABDOMEN PELVIS W 2022-02-11 07:45:43 Reilly Means [facility] CT ABDOMEN PELVIS W 2022-02-11 07:45:43 Reilly Means [facility] CONTRAST [facility] RAPID INFLUENZA A/B 2022-02-11 06:54:00 Reilly Means [facility] RAPID INFLUENZA A/B 2022-02-11 06:54:00 Reilly Means [facility] URINALYSIS 2022-02-11 06:45:00 Reilly Means [facility] f [facility] URINE CULTURE 2022-02-11 06:45:00 Reilly Means [facility] URINALYSIS 2022-02-11 06:45:00 Reilly Means [facility] URINE CULTURE 2022-02-11 06:45:00 Reilly Means [facility] HB ECG ROUTINE & RHYTHM 2022-02-11 05:22:08 Reilly Means [facility] HB ECG ROUTINE & RHYTHM 2022-02-11 05:22:08 Reilly Means [facility] BLOOD CULTURE SCREEN 2022-02-11 04:58:[address] [facility] TROPONIN I 2022-02-11 04:58:00 Reilly Means [facility] COMP. METABOLIC PANEL 2022-02-11 04:58:00 Reilly Means [facility] ([id number]) Medical Branch CBC WITH DIFF 2022-02-11 04:58:00 Reilly Means [facility] PROTHROMBIN TIME / INR 2022-02-11 04:58:00 Reilly Means [facility] ACTIVATED PARTIAL THRMPLAS 2022-02-11 04:58:00 Reilly Means [facility] N-TERMINAL PRO-BNP 2022-02-11 04:58:00 Reilly Means [facility] LACTIC ACID WHOLE BLOOD 2022-02-11 04:58:00 Reilly Means [facility] COVID-19 (ID NOW RAPID 2022-02-11 04:58:00 Reilly Means [facility] TESTING) Medical Branch LAB ONLY COVID 2022-02-11 04:58:00 Reilly Means [facility] INTERPRETATION [facility] CBC WITH DIFF 2022-02-11 04:58:00 Reilly Means [facility] ACTIVATED PARTIAL THRMPLAS 2022-02-11 04:58:00 Reilly Means [facility] PROTHROMBIN TIME / INR 2022-02-11 04:58:00 Reilly Means [facility] COVID-19 (ID NOW RAPID 2022-02-11 04:58:00 Reilly Means [facility] TESTING) Medical Branch COMP. METABOLIC PANEL 2022-02-11 04:58:00 Reilly Means [facility] ([id number] Branch TROPONIN I 2022-02-11 04:58:00 Reilly Means [facility] N-TERMINAL PRO-BNP 2022-02-11 04:58:00 Reilly Means [facility] BLOOD CULTURE SCREEN 2022-02-11 04:58:[address] [facility] LACTIC ACID WHOLE BLOOD 2022-02-11 04:58:00 Reilly Means [facility] LAB ONLY COVID 2022-02-11 04:58:00 Reilly Means [facility] INTERPRETATION [facility] XR CHEST 1 VW 2022-02-11 04:27:42 Miguelangel Reilly [facility] XR CHEST 1 VW 2022-02-11 04:27:42 Reilly Means [facility] HOSPITAL ADMISSION 2022-02-10 05:01:00 Doctor Unassigned, [facility] Name [facility] HOSPITAL ADMISSION 2022-02-10 05:01:00 Doctor Unassigned, [facility] ECG 12-LEAD 2021-07-14 15:14:00 Elan Lira [facility] [id number] 2021-06-17 00:00:[address] [facility] GASTROINTESTINAL PANEL 2020-12-08 22:21:00 Eliseo Arce [facility] XR ABDOMEN 1 VW 2020-12-08 18:06:32 Eliseo Arce spital OR [place] < 1 HOUR 2020-09-05 22:39:00 Eliseo Arce spital SURGICAL PATHOLOGY REQUEST 2020-09-05 21:54:00 Eliseo Arce [facility] XR CHEST 1 VW PORTABLE 2020-09-05 19:55:00 Eliseo Arce [facility] Hospital DISCHARGE PATIENT 2020-09-05 17:27:55 Lucas Harris [facility] [place] AN ELECTIVE 2020-09-05 16:47:23 [facility], INTRAOPERATIVE 2020-09-05 16:27:00 [facility] 2020-09-05 15:04:00 Ros[facility]aron hospitalSarai [facility] TIME (PTT) M. PROTHROMBIN TIME WITH INR 2020-09-05 15:04:00 [facility] M. Plan of Care Planned Activity Planned Date Details Comments Source Future Scheduled 2022-03-25 SHINGLES VACCINES (1 Met [facility] Test 14:48:42 of 2) [code = SHINGLES VACCINES (1 of 2)] Future Scheduled 2022-03-25 BREAST CANCER [facility] Test 14:48:42 SCREENING [code = BREAST CANCER SCREENING] Future Scheduled 2022-03-25 COLONOSCOPY SCREENING [facility] Test 14:48:42 [code = COLONOSCOPY SCREENING] Future Scheduled 2022-03-25 HEPATITIS B VACCINES Met [facility] Test 14:48:42 (1 of 3 - Risk 3-dose series) [code = HEPATITIS B VACCINES (1 of 3 - Risk 3-dose series)] Future Scheduled 2022-03-25 COVID-19 VACCINE (3 - Me [facility] Test 14:48:42 Booster for Pfizer series) [code = COVID-19 VACCINE (3 - Booster for Pfizer series)] Future Scheduled 2022-03-25 65+ [facility]CCAL [facility] 14:48:42 VACCINE (4 - PPSV23 if available, else PCV20) [code = 65+ PNEUMOCOCCAL VACCINE (4 - PPSV23 if available, else PCV20)] Future Scheduled 2022-03-25 INFLUENZA VACCINE [facility] Test 14:48:42 [code = INFLUENZA VACCINE] Future Scheduled 2022-03-25 SHINGLES VACCINES (1 Met [facility] Test 14:48:42 of 2) [code = SHINGLES VACCINES (1 of 2)] Future Scheduled 2022-03-25 BREAST CANCER [facility] Test 14:48:42 SCREENING [code = BREAST CANCER SCREENING] Future Scheduled 2022-03-25 COLONOSCOPY SCREENING [facility] Test 14:48:42 [code = COLONOSCOPY SCREENING] Future Scheduled 2022-03-25 HEPATITIS B VACCINES Met [facility] Test 14:48:42 (1 of 3 - Risk 3-dose series) [code = HEPATITIS B VACCINES (1 of 3 - Risk 3-dose series)] Future Scheduled 2022-03-25 COVID-19 VACCINE (3 - Me [facility] Test 14:48:42 Booster for Pfizer series) [code = COVID-19 VACCINE (3 - Booster for Pfizer series)] Future Scheduled 2022-03-25 65+ [facility] 14:[facility]:42 VACCINE (4 - PPSV23 if available, else PCV20) [code = 65+ PNEUMOCOCCAL VACCINE (4 - PPSV23 if available, else PCV20)] Future Scheduled 2022-03-25 INFLUENZA VACCINE [facility] Test 14:48:42 [code = INFLUENZA VACCINE] Future Scheduled 2022-03-25 SHINGLES VACCINES (1 Met [facility] Test 14:48:42 of 2) [code = SHINGLES VACCINES (1 of 2)] Future Scheduled 2022-03-25 BREAST CANCER [facility] Test 14:48:42 SCREENING [code = BREAST CANCER SCREENING] Future Scheduled 2022-03-25 COLONOSCOPY SCREENING [facility] Test 14:48:42 [code = COLONOSCOPY SCREENING] Future Scheduled 2022-03-25 HEPATITIS B VACCINES Met [facility] Test 14:48:42 (1 of 3 - Risk 3-dose series) [code = HEPATITIS B VACCINES (1 of 3 - Risk 3-dose series)] Future Scheduled 2022-03-25 COVID-19 VACCINE (3 - Me [facility] Test 14:48:42 Booster for Pfizer series) [code = COVID-19 VACCINE (3 - Booster for Pfizer series)] Future Scheduled 2022-03-25 65+ [facility] 14:48:42 VACCINE (4 - PPSV23 if available, else PCV20) [code = 65+ PNEUMOCOCCAL VACCINE (4 - PPSV23 if available, else PCV20)] Future Scheduled 2022-03-25 INFLUENZA VACCINE [facility] Test 14:48:42 [code = INFLUENZA VACCINE] Future Scheduled 2022-03-25 SHINGLES VACCINES (1 Met [facility] Test 14:48:42 of 2) [code = SHINGLES VACCINES (1 of 2)] Future Scheduled 2022-03-25 BREAST CANCER [facility] Test 14:48:42 SCREENING [code = BREAST CANCER SCREENING] Future Scheduled 2022-03-25 COLONOSCOPY SCREENING [facility] Test 14:48:42 [code = COLONOSCOPY SCREENING] Future Scheduled 2022-03-25 HEPATITIS B VACCINES Met [facility] Test 14:48:42 (1 of 3 - Risk 3-dose series) [code = HEPATITIS B VACCINES (1 of 3 - Risk 3-dose series)] Future Scheduled 2022-03-25 COVID-19 VACCINE (3 - Me [facility] Test 14:48:42 Booster for Pfizer series) [code = COVID-19 VACCINE (3 - Booster for Pfizer series)] Future Scheduled 2022-03-25 65+ [facility] Test 14:48:42 VACCINE (4 - PPSV23 if available, else PCV20) [code = 65+ PNEUMOCOCCAL VACCINE (4 - PPSV23 if available, else PCV20)] Future Scheduled 2022-03-25 INFLUENZA VACCINE [facility] Test 14:48:42 [code = INFLUENZA VACCINE] Future Scheduled 2022-03-25 SHINGLES VACCINES (1 Met [facility] Test 14:48:42 of 2) [code = SHINGLES VACCINES (1 of 2)] Future Scheduled 2022-03-25 BREAST CANCER [facility] Test 14:48:42 SCREENING [code = BREAST CANCER SCREENING] Future Scheduled 2022-03-25 COLONOSCOPY SCREENING [facility] Test 14:48:42 [code = COLONOSCOPY SCREENING] Future Scheduled 2022-03-25 HEPATITIS B VACCINES Met [facility] Test 14:48:42 (1 of 3 - Risk 3-dose series) [code = HEPATITIS B VACCINES (1 of 3 - Risk 3-dose series)] Future Scheduled 2022-03-25 COVID-19 VACCINE (3 - [facility] Test 14:48:42 Booster for Pfizer series) [code = COVID-19 VACCINE (3 - Booster for Pfizer series)] Future Scheduled 2022-03-25 65+ [facility] 14:48:42 VACCINE (4 - PPSV23 if available, else PCV20) [code = 65+ PNEUMOCOCCAL VACCINE (4 - PPSV23 if available, else PCV20)] Future Scheduled 2022-03-25 INFLUENZA VACCINE [facility] Test 14:48:42 [code = INFLUENZA VACCINE] Future Scheduled 2022-03-25 SHINGLES VACCINES (1 Met [facility] Test 14:48:42 of 2) [code = SHINGLES VACCINES (1 of 2)] Future Scheduled 2022-03-25 BREAST CANCER [facility] Test 14:48:42 SCREENING [code = BREAST CANCER SCREENING] Future Scheduled 2022-03-25 COLONOSCOPY SCREENING Me [facility] Test 14:48:42 [code = COLONOSCOPY SCREENING] Future Scheduled 2022-03-25 HEPATITIS B VACCINES Met [facility] Test 14:48:42 (1 of 3 - Risk 3-dose series) [code = HEPATITIS B VACCINES (1 of 3 - Risk 3-dose series)] Future Scheduled 2022-03-25 COVID-19 VACCINE (3 - Me [facility] Test 14:48:42 Booster for Pfizer series) [code = COVID-19 VACCINE (3 - Booster for Pfizer series)] Future Scheduled 2022-03-25 65+ [facility] Test 14:48:42 VACCINE (4 - PPSV23 if available, else PCV20) [code = 65+ PNEUMOCOCCAL VACCINE (4 - PPSV23 if available, else PCV20)] Future Scheduled 2022-03-25 INFLUENZA VACCINE Method [facility] Test 14:48:42 [code = INFLUENZA VACCINE] Future Scheduled 2022-03-04 SHINGLES VACCINES (1 Met [facility] Test 14:03:57 of 2) [code = SHINGLES VACCINES (1 of 2)] Future Scheduled 2022-03-04 BREAST CANCER [facility] Test 14:03:57 SCREENING [code = BREAST CANCER SCREENING] Future Scheduled 2022-03-04 COLONOSCOPY SCREENING [facility] Test 14:03:57 [code = COLONOSCOPY SCREENING] Future Scheduled 2022-03-04 HEPATITIS B VACCINES Met [facility] Test 14:03:57 (1 of 3 - Risk 3-dose series) [code = HEPATITIS B VACCINES (1 of 3 - Risk 3-dose series)] Future Scheduled 2022-03-04 COVID-19 VACCINE (3 - [facility] Test 14:03:57 Booster for Pfizer series) [code = COVID-19 VACCINE (3 - Booster for Pfizer series)] Future Scheduled 2022-03-04 65+ [facility] 14:03:57 VACCINE (4 - PPSV23 if available, else PCV20) [code = 65+ PNEUMOCOCCAL VACCINE (4 - PPSV23 if available, else PCV20)] Future Scheduled 2022-03-04 INFLUENZA VACCINE [facility] Test 14:03:57 [code = INFLUENZA VACCINE] Future Scheduled 2022-03-04 SHINGLES VACCINES (1 Met [facility] Test 14:03:57 of 2) [code = SHINGLES VACCINES (1 of 2)] Future Scheduled 2022-03-04 BREAST CANCER [facility] Test 14:03:57 SCREENING [code = BREAST CANCER SCREENING] Future Scheduled 2022-03-04 COLONOSCOPY SCREENING [facility] Test 14:03:57 [code = COLONOSCOPY SCREENING] Future Scheduled 2022-03-04 HEPATITIS B VACCINES Met [facility] Test 14:03:57 (1 of 3 - Risk 3-dose series) [code = HEPATITIS B VACCINES (1 of 3 - Risk 3-dose series)] Future Scheduled 2022-03-04 COVID-19 VACCINE (3 - [facility] Test 14:03:57 Booster for Pfizer series) [code = COVID-19 VACCINE (3 - Booster for Pfizer series)] Future Scheduled 2022-03-04 65+ PNEUMOCOCCAL [facility] Test 14:03:57 VACCINE (4 - PPSV23 if available, else PCV20) [code = 65+ PNEUMOCOCCAL VACCINE (4 - PPSV23 if available, else PCV20)] Future Scheduled 2022-03-04 INFLUENZA VACCINE [facility] Test 14:03:57 [code = INFLUENZA VACCINE] Future Scheduled 2022-03-04 SHINGLES VACCINES (1 Met [facility] Test 14:03:57 of 2) [code = SHINGLES VACCINES (1 of 2)] Future Scheduled 2022-03-04 BREAST CANCER [facility] Test 14:03:57 SCREENING [code = BREAST CANCER SCREENING] Future Scheduled 2022-03-04 COLONOSCOPY SCREENING [facility] Test 14:03:57 [code = COLONOSCOPY SCREENING] Future Scheduled 2022-03-04 HEPATITIS B VACCINES Met [facility] Test 14:03:57 (1 of 3 - Risk 3-dose series) [code = HEPATITIS B VACCINES (1 of 3 - Risk 3-dose series)] Future Scheduled 2022-03-04 COVID-19 VACCINE (3 - [facility] Test 14:03:57 Booster for Pfizer series) [code = COVID-19 VACCINE (3 - Booster for Pfizer series)] Future Scheduled 2022-03-04 65+ [facility] 14:03:57 VACCINE (4 - PPSV23 if available, else PCV20) [code = 65+ PNEUMOCOCCAL VACCINE (4 - PPSV23 if available, else PCV20)] Future Scheduled 2022-03-04 INFLUENZA VACCINE [facility] Test 14:03:57 [code = INFLUENZA VACCINE] Future Scheduled 2022-03-04 SHINGLES VACCINES (1 Met [facility] Test 14:03:57 of 2) [code = SHINGLES VACCINES (1 of 2)] Future Scheduled 2022-03-04 BREAST CANCER [facility] Test 14:03:57 SCREENING [code = BREAST CANCER SCREENING] Future Scheduled 2022-03-04 COLONOSCOPY SCREENING [facility] Test 14:03:57 [code = COLONOSCOPY SCREENING] Future Scheduled 2022-03-04 HEPATITIS B VACCINES Met [facility] Test 14:03:57 (1 of 3 - Risk 3-dose series) [code = HEPATITIS B VACCINES (1 of 3 - Risk 3-dose series)] Future Scheduled 2022-03-04 COVID-19 VACCINE (3 - [facility] Test 14:03:57 Booster for Pfizer series) [code = COVID-19 VACCINE (3 - Booster for Pfizer series)] Future Scheduled 2022-03-04 65+ [facility] 14:03:57 VACCINE (4 - PPSV23 if available, else PCV20) [code = 65+ PNEUMOCOCCAL VACCINE (4 - PPSV23 if available, else PCV20)] Future Scheduled 2022-03-04 INFLUENZA VACCINE Method [facility] Test 14:03:57 [code = INFLUENZA VACCINE] Future Scheduled 2022-02-11 SHINGLES VACCINES (1 Met [facility] Test 13:39:12 of 2) [code = SHINGLES VACCINES (1 of 2)] Future Scheduled 2022-02-11 BREAST CANCER [facility] Test 13:39:12 SCREENING [code = BREAST CANCER SCREENING] Future Scheduled 2022-02-11 COLONOSCOPY SCREENING [facility] Test 13:39:12 [code = COLONOSCOPY SCREENING] Future Scheduled 2022-02-11 HEPATITIS B VACCINES Met [facility] Test 13:39:12 (1 of 3 - Risk 3-dose series) [code = HEPATITIS B VACCINES (1 of 3 - Risk 3-dose series)] Future Scheduled 2022-02-11 COVID-19 VACCINE (3 - Me [facility] Test 13:39:12 Booster for Pfizer series) [code = COVID-19 VACCINE (3 - Booster for Pfizer series)] Future Scheduled 2022-02-11 65+ PNEUMOCOCCAL [facility] Test 13:39:12 VACCINE (4 - PPSV23 or PCV20) [code = 65+ PNEUMOCOCCAL VACCINE (4 - PPSV23 or PCV20)] Future Scheduled 2022-02-11 INFLUENZA VACCINE Method [facility] Test 13:39:12 [code = INFLUENZA VACCINE] Future Scheduled 2022-01-29 SHINGLES VACCINES (1 Met [facility] Test 14:07:20 of 2) [code = SHINGLES VACCINES (1 of 2)] Future Scheduled 2022-01-29 BREAST CANCER [facility] Test 14:07:20 SCREENING [code = BREAST CANCER SCREENING] Future Scheduled 2022-01-29 COLONOSCOPY SCREENING [facility] Test 14:07:20 [code = COLONOSCOPY SCREENING] Future Scheduled 2022-01-29 HEPATITIS B VACCINES Met [facility] Test 14:07:20 (1 of 3 - Risk 3-dose series) [code = HEPATITIS B VACCINES (1 of 3 - Risk 3-dose series)] Future Scheduled 2022-01-29 COVID-19 VACCINE (3 - [facility] Test 14:07:20 Booster for Pfizer series) [code = COVID-19 VACCINE (3 - Booster for Pfizer series)] Future Scheduled 2022-01-29 65+ PNEUMOCOCCAL [facility] Test 14:07:20 VACCINE (4 - PPSV23 or PCV20) [code = 65+ PNEUMOCOCCAL VACCINE (4 - PPSV23 or PCV20)] Future Scheduled 2022-01-29 INFLUENZA VACCINE Method [facility] Test 14:07:20 [code = INFLUENZA VACCINE] Future Scheduled 2022-01-29 SHINGLES VACCINES (1 Met [facility] Test 14:07:20 of 2) [code = SHINGLES VACCINES (1 of 2)] Future Scheduled 2022-01-29 BREAST CANCER [facility] Test 14:07:20 SCREENING [code = BREAST CANCER SCREENING] Future Scheduled 2022-01-29 COLONOSCOPY SCREENING [facility] Test 14:07:20 [code = COLONOSCOPY SCREENING] Future Scheduled 2022-01-29 HEPATITIS B VACCINES Met [facility] Test 14:07:20 (1 of 3 - Risk 3-dose series) [code = HEPATITIS B VACCINES (1 of 3 - Risk 3-dose series)] Future Scheduled 2022-01-29 COVID-19 VACCINE (3 - [facility] Test 14:07:20 Booster for Pfizer series) [code = COVID-19 VACCINE (3 - Booster for Pfizer series)] Future Scheduled 2022-01-29 65+ PNEUMOCOCCAL [facility] Test 14:07:20 VACCINE (4 - PPSV23 or PCV20) [code = 65+ PNEUMOCOCCAL VACCINE (4 - PPSV23 or PCV20)] Future Scheduled 2022-01-29 INFLUENZA VACCINE Method [facility] Test 14:07:20 [code = INFLUENZA VACCINE] Future Scheduled 2022-01-29 SHINGLES VACCINES (1 Met [facility] Test 14:07:20 of 2) [code = SHINGLES VACCINES (1 of 2)] Future Scheduled 2022-01-29 BREAST CANCER [facility] Test 14:07:20 SCREENING [code = BREAST CANCER SCREENING] Future Scheduled 2022-01-29 COLONOSCOPY SCREENING [facility] Test 14:07:20 [code = COLONOSCOPY SCREENING] Future Scheduled 2022-01-29 HEPATITIS B VACCINES Met [facility] Test 14:07:20 (1 of 3 - Risk 3-dose series) [code = HEPATITIS B VACCINES (1 of 3 - Risk 3-dose series)] Future Scheduled 2022-01-29 COVID-19 VACCINE (3 - [facility] Test 14:07:20 Booster for Pfizer series) [code = COVID-19 VACCINE (3 - Booster for Pfizer series)] Future Scheduled 2022-01-29 65+ PNEUMOCOCCAL [facility] Test 14:07:20 VACCINE (4 - PPSV23 or PCV20) [code = 65+ PNEUMOCOCCAL VACCINE (4 - PPSV23 or PCV20)] Future Scheduled 2022-01-29 INFLUENZA VACCINE Method [facility] Test 14:07:20 [code = INFLUENZA VACCINE] Future Scheduled 2022-01-29 SHINGLES VACCINES (1 Met [facility] Test 14:07:20 of 2) [code = SHINGLES VACCINES (1 of 2)] Future Scheduled 2022-01-29 BREAST CANCER [facility] Test 14:07:20 SCREENING [code = BREAST CANCER SCREENING] Future Scheduled 2022-01-29 COLONOSCOPY SCREENING [facility] Test 14:07:20 [code = COLONOSCOPY SCREENING] Future Scheduled 2022-01-29 HEPATITIS B VACCINES Met [facility] Test 14:07:20 (1 of 3 - Risk 3-dose series) [code = HEPATITIS B VACCINES (1 of 3 - Risk 3-dose series)] Future Scheduled 2022-01-29 COVID-19 VACCINE (3 - [facility] Test 14:07:20 Booster for Pfizer series) [code = COVID-19 VACCINE (3 - Booster for Pfizer series)] Future Scheduled 2022-01-29 65+ PNEUMOCOCCAL [facility] Test 14:07:20 VACCINE (4 - PPSV23 or PCV20) [code = 65+ PNEUMOCOCCAL VACCINE (4 - PPSV23 or PCV20)] Future Scheduled 2022-01-29 INFLUENZA VACCINE Method [facility] Test 14:07:20 [code = INFLUENZA VACCINE] Future Scheduled 2022-01-20 SHINGLES VACCINES (1 Met [facility] Test 06:12:34 of 2) [code = SHINGLES VACCINES (1 of 2)] Future Scheduled 2022-01-20 Screening for [facility] Test 06:12:34 malignant neoplasm of cervix (procedure) [code = [id number]] Future Scheduled 2022-01-20 BREAST CANCER [facility] Test 06:12:34 SCREENING [code = BREAST CANCER SCREENING] Future Scheduled 2022-01-20 COLONOSCOPY SCREENING [facility] Test 06:12:34 [code = COLONOSCOPY SCREENING] Future Scheduled 2022-01-20 HEPATITIS B VACCINES Met [facility] Test 06:12:34 (1 of 3 - Risk 3-dose series) [code = HEPATITIS B VACCINES (1 of 3 - Risk 3-dose series)] Future Scheduled 2022-01-20 COVID-19 VACCINE (3 - [facility] Test 06:12:34 Booster for Pfizer series) [code = COVID-19 VACCINE (3 - Booster for Pfizer series)] Future Scheduled 2022-01-20 65+ PNEUMOCOCCAL [facility] Test 06:12:34 VACCINE (4 - PPSV23 or PCV20) [code = 65+ PNEUMOCOCCAL VACCINE (4 - PPSV23 or PCV20)] Future Scheduled 2022-01-20 INFLUENZA VACCINE Method [facility] Test 06:12:34 [code = INFLUENZA VACCINE] Future Scheduled 2022-01-16 SHINGLES VACCINES (1 Met [facility] Test 12:09:25 of 2) [code = SHINGLES VACCINES (1 of 2)] Future Scheduled 2022-01-16 Screening for [facility] Test 12:09:25 malignant neoplasm of cervix (procedure) [code = [id number]] Future Scheduled 2022-01-16 BREAST CANCER [facility] Test 12:09:25 SCREENING [code = BREAST CANCER SCREENING] Future Scheduled 2022-01-16 COLONOSCOPY SCREENING [facility] Test 12:09:25 [code = COLONOSCOPY SCREENING] Future Scheduled 2022-01-16 HEPATITIS B VACCINES Met [facility] Test 12:09:25 (1 of 3 - Risk 3-dose series) [code = HEPATITIS B VACCINES (1 of 3 - Risk 3-dose series)] Future Scheduled 2022-01-16 COVID-19 VACCINE (3 - [facility] Test 12:09:25 Booster for Pfizer series) [code = COVID-19 VACCINE (3 - Booster for Pfizer series)] Future Scheduled 2022-01-16 65[facility] 12:09:25 VACCINE (4 - PPSV23 or PCV20) [code = 65+ PNEUMOCOCCAL VACCINE (4 - PPSV23 or PCV20)] Future Scheduled 2022-01-16 INFLUENZA VACCINE [facility] Test 12:09:25 [code = INFLUENZA VACCINE] Future Scheduled 2022-01-14 SHINGLES VACCINES (1 Met [facility] Test 04:11:46 of 2) [code = SHINGLES VACCINES (1 of 2)] Future Scheduled 2022-01-14 Screening for [facility] Test 04:11:46 malignant neoplasm of cervix (procedure) [code = [id number]] Future Scheduled 2022-01-14 BREAST CANCER [facility] Test 04:11:46 SCREENING [code = BREAST CANCER SCREENING] Future Scheduled 2022-01-14 COLONOSCOPY SCREENING [facility] Test 04:11:46 [code = COLONOSCOPY SCREENING] Future Scheduled 2022-01-14 HEPATITIS B VACCINES Met [facility] Test 04:11:46 (1 of 3 - Risk 3-dose series) [code = HEPATITIS B VACCINES (1 of 3 - Risk 3-dose series)] Future Scheduled 2022-01-14 COVID-19 VACCINE (3 - [facility] Test 04:11:46 Booster for Pfizer series) [code = COVID-19 VACCINE (3 - Booster for Pfizer series)] Future Scheduled 2022-01-14 65[facility] 04:11:46 VACCINE (4 - PPSV23 or PCV20) [code = 65+ PNEUMOCOCCAL VACCINE (4 - PPSV23 or PCV20)] Future Scheduled 2022-01-14 INFLUENZA VACCINE Method [facility] Test 04:11:46 [code = INFLUENZA VACCINE] Future Scheduled 2021-08-26 Screening for [facility] Test 13:02:23 malignant neoplasm of cervix (procedure) [code = [id number]] Future Scheduled 2021-08-26 BREAST CANCER [facility] Test 13:02:23 SCREENING [code = BREAST CANCER SCREENING] Future Scheduled 2021-08-26 COLONOSCOPY SCREENING [facility] Test 13:02:23 [code = COLONOSCOPY SCREENING] Future Scheduled 2021-08-26 Screening for [facility] Test 13:02:23 malignant neoplasm of lung (procedure) [code = [id number]] Future Scheduled 2021-08-26 SHINGLES VACCINES (#1) [facility] Test 13:02:23 [code = SHINGLES VACCINES (#1)] Future Scheduled 2021-08-26 COVID-19 VACCINE (3 - [facility] Test 13:02:23 Pfizer risk 4-dose series) [code = COVID-19 VACCINE (3 - Pfizer risk 4-dose series)] Future Scheduled 2021-08-26 65+ PNEUMOCOCCAL [facility] Test 13:02:23 VACCINE (4 of 4 - PPSV23) [code = 65+ PNEUMOCOCCAL VACCINE (4 of 4 - PPSV23)] Future Scheduled 2021-08-26 INFLUENZA VACCINE [facility] Test 13:02:23 [code = INFLUENZA VACCINE] Encounters Start End Encounter Admission Attending Care Care Encounter Source Date/Time Date/Time Type Type Clinicians Facility Department ID 2022-02-18 Outpatient [facility] W [id number] [place] 14:30:[address] [place] [address] 2021-07-14 Outpatient SADIKOVIC, [facility] [id number] [place] 09:33:51 [facility] 2021-06-02 Outpatient HEMATPOUR, [facility] [id number] [place] 13:58:59 [facility] 2021-04-28 Outpatient HEMATPOUR, [facility] [id number] [place] 11:21:22 [facility] 2021-03-20 Emergency [facility] [id number] [facility] HEMATPOUR, [facility] [id number] [place] 08:16:46 [facility] 2020-10-31 Outpatient HEMATPOUR, [facility] [id number] [place] 09:44:50 [facility] 2020-09-30 Outpatient HEMATPOUR, [facility] [id number] [place] 13:16:03 [facility] 2022-04-07 2022-04-07 Outpatient R UNKNOWN, [facility] [id number] Univers 20:40:00 20:40:00 ATTENDING ity [facility] 2022-04-07 2022-04-07 Telephone Devin, 1.2.840.4 [id number] Univers 00:00:00 00:00:00 Robbi Hairston [id number] i ty of 3.104.2.7 [place] .3.478633 Medica l .[address] [place] [address] 2022-03-05 2022-03-05 Cleaning Handyman Santiago Cardenas 1.2.840.1 [id number] Univers 13:45:00 14:00:00 Visit [facility] [id number] ity of 3.104.2.7 [place] .3.880038 Medica l .[address] [place] [address] 2022-03-05 2022-03-05 Outpatient R [facility] [id number] Univers 13:45:00 13:45:00 [facility]ANT[facility]AGO [facility] 2022-03-05 2022-03-05 Office Ronald, 1.2.840.8 [id number] Univers 13:00:00 13:30:00 Visit Santiago [id number] ity of 3.104.2.7 [place] .3.161450 Medica l .[address] [place] [address] 2022-02-26 2022-02-26 Outpatient R [facility] [id number] Univers 08:30:00 08:30:00 SANTIAGO [facility] 2022-02-26 2022-02-26 Outpatient R [facility] [id number] Univers 08:30:00 08:30:00 SANTIAGO ity of [facility] 2022-02-17 2022-02-17 Transition Stevo, 1.2.840.1 [id number] Univers 00:00:00 00:00:00 of Care Isaias Arredondo [id number] it y of 3.104.2.7 [place] .3.385617 Medica l .[facility] [place] 2022-02-10 2022-02-16 Inpatient X [facility] [id number] Univers 22:59:00 19:27:00 TOMY ity of [facility] 2022-02-10 2022-02-16 Hospital Reilly Means 1.2.840.1 [id number] Univers 22:59:00 19:27:00 Encounter Ofe Shields [id number] ity of [place] 3[place]104.2.7 [place] .3.695858 [place]ica [place] .[facility] [place] 2022-02-11 2022-02-11 Telephone [facility], 1.2.840.2 [id number] [id number] Univers 00:00:00 00:00:00 Santiago 70181.1.1 ity of 3.104.2.7 [place] .3.563435 Medica l .8 Branch 2022-02-10 2022-02-10 Travel 1.2.840.1 1.2.120.865 0761 9827 Univers 00:00:00 00:00:00 16305.1.1 350.1.13.10 ity of 3.104.2.7 4.[place]7.3.698 [place] .3.102052 084.8 Medica l .8 Branch 2022-01-30 2022-01-30 Telephone [facility], 1.2.840.5 [id number] 965 74775 Univers 00:00:00 00:00:00 Sanitago 11162.1.1 ity of 3.104.2.7 [place] .3.137613 Medica l .8 Branch 2022-01-06 2022-01-06 Orders Doctor FERMIN 1.2.840.114 [id number] Univers 00:00:00 00:00:00 Only Unassigned, JACKELINE 350.1.13.10 ity of [place] [facility] 4.2.7.2.686 Yomi as [id number] [facility] 009 [place] 2021-12-25 2021-12-25 Orders Doctor FERMIN 1.2.840.114 [id number] Univers 00:00:00 00:00:00 Only Unassigned, JACKELINE 350.1.13.10 ity of [place] [facility] 4.2.7.2.686 Ymoi as [id number] [facility] 009 [place] 2021-12-12 2021-12-13 Emergency X SARI Bill [facility] ERT [id number] Univers 23:53:00 01:52:00 ity of [facility] 2021-12-12 2021-12-13 Emergency Bill Coles [facility] 1.2.840.114 [id number] Univers 23:53:00 01:52:00 Kiersten BULLOCK 350.1.13.10 i ty of [place].2.[place] [id number] [facility] 084 Branch 2021-11-20 2021-11-20 Cleaning Handyman [facility] UNIVERSIT 1.2.840.114 9 [id number] Univers 09:45:00 10:00:00 Visit [facility] 350.1.13.10 ity of [place] [id number] [facility] 316 Branch 2021-11-20 2021-11-20 Office [facility] 1.2.629.169 4538 9084 Univers 08:30:00 09:00:00 Visit [facility] 350.1.13.10 i ty of [facility] 4.2.7.2.[place] [id number] [facility] 089 [place] 2021-11-20 2021-11-20 Outpatient R [facility] [id number] 300 Univers 08:30:00 08:30:00 [facility] 2021-11-20 2021-11-20 Outpatient R [facility] [id number] 300 Univers 08:30:00 08:30:00 [facility] 2021-11-20 2021-11-20 Outpatient R RONALD, [facility] [id number] Univers 08:30:00 08:30:00 SANTIAGO barbosa [facility] 2021-11-20 2021-11-20 Outpatient R RONALD, [facility] [id number] Univers 08:30:00 08:30:00 SANTIAGO charlie [facility] 2021-10-24 2021-10-24 Emergency X ESVIN [facility] ERT [id number] Univers 16:27:00 22:26:00 CHARITY charlie [facility] 2021-10-24 2021-10-24 Emergency X ESIVN [facility] ERT [id number] Univers 16:27:00 22:26:00 CHARITY charlie [facility] 2021-10-24 2021-10-24 Emergency MeansDevanteReilly [facility] 1.2.840. 114 [id number] Univers 16:27:00 22:26:00 Charity Mcallister [place] 350.1.13.10 ity [facility] 4.2.7.2.686 [facility] [phone] [address] 2021-10-23 2021-10-24 Emergency X ESVIN [facility] ERT [id number] Univers 20:22:00 02:57:00 CHARITY [facility] 2021-10-23 2021-10-24 [facility] 1.2.575.776 [id number] [id number] Univers 20:22:00 02:57:00 [facility].1.13.10 [facility] 4.2.7.2.686 [facility] [id number] [address] 2021-09-07 2021-09-07 Outpatient R SELF, [facility] [id number] Univers 08:00:00 08:00:00 GADIEL familia lela rodas [facility] 2021-09-07 2021-09-07 Outpatient R SELF, [facility] [id number] Univers 08:00:00 08:00:00 GADIEL vogel clark [facility] 2021-08-21 2021-08-21 Outpatient R [facility] [id number] Univers 10:45:00 10:45:00 SANTIAGO barbosa [facility] 2021-08-21 2021-08-21 Cleaning Handyman [place] Cardenas 1.2.840.1 [id number] Univers 10:45:00 10:45:00 Visit [facility] 46630.1.1 ity of 3.104.2.7 [place] .3.078893 Medica l .8 [place] 2021-08-21 2021-08-21 Office [place], 1.2.840.0 [id number] 516 Univers 08:30:00 09:00:00 Visit Santiago 72928.1.1 ity of 3.104.2.7 [place] .3.266428 Medica l .8 [place] 2021-08-21 2021-08-21 Office [facility], UNIVERSIT 1.2.651.011 5004 8516 Univers 08:30:00 09:00:00 Visit Santiago [facility] 350.1.13.10 i ty of CL[place] 4[place] [id number] [facility] porfirio [address]89 [place] 2021-08-21 2021-08-21 Outpatient R [facility] [id number] Univers 08:30:00 08:30:00 SANTIAGO barbosa [facility] 2021-08-21 2021-08-21 Travel 1.2.840.1 1.2.539.926 6228 3865 Univers 00:00:00 00:00:00 04174.1.1 350.1.13.10 ity of 3.104.2.7 4.2.7.3.698 [place] .3.539847 084.8 Medica l .8 [place] 2021-08-14 2021-08-14 Telephone [place], 1.2.840.5 [id number] 922 [id number] Univers 00:00:00 00:00:00 Santiago 03061.1.1 ity of 3.104.2.7 [place] .3.916325 Medica l .8 [place] 2021-08-13 2021-08-13 Telephone [place], 1.2.840.3 [id number] Univers 00:00:00 00:00:00 [place] 31084.1.1 [facility] 3.104.2.7 [facility]3.375974 [facility] l Branch 2021-08-11 2021-08-11 Outpatient [facility] [id number] Univers 08:00:00 08:00:00 [facility] 2021-08-05 2021-08-05 Inpatient EDUARDO LealCL OUTD [id number] [facility] 05:24:00 05:24:00 Mike 31 [facility] 2021-07-20 2021-07-20 Outpatient [facility] [id number] [facility] 10:00:00 10:00:00 [facility] 2021-07-14 2021-07-14 Office Pankaj, UTP 6400 1.2.840.114 13 [id number] [place] 08:45:00 09:34:[address] 350.1.13.58 Health 9.2.7.2.686 [id number] 1 2021-07-09 2021-07-09 Telephone [place], UTP 6400 1.2.840.114 [id number] [place] 00:00:00 00:00:[address] 350.1.13.58 Health 9.2.7.2.686 [id number] 1 2021-07-09 2021-07-09 Telephone [place], UTP 6400 1.2.840.114 [id number] DC 00:00:00 00:00:[address] 350.1.13.58 Health 9.2.7.2.686 [id number] 1 2021-07-03 2021-07-03 Outpatient [facility] [id number] Univers 08:00:00 08:00:00 [facility] 2021-06-17 2021-06-17 Inpatient EDUARDO LealCL INTE.02 [id number] [facility] 10:56:00 14:36:00 Mike 47 [facility] 2021-06-15 2021-06-15 Outpatient R SELF, [facility] [id number] Univers 10:15:00 11:07:21 GADIEL rodas [facility] 2021-06-15 2021-06-15 Outpatient R SELF, [facility] [id number] Univers 10:15:00 10:15:00 GADIEL rodas [facility] 2021-06-15 2021-06-15 Outpatient R SELF, [facility] [id number] Univers 10:15:00 10:15:00 GADIEL rodas [facility] 2021-06-15 2021-06-15 Orders Doctor 1.2.840.7 [id number] Univers 00:00:00 00:00:00 Only Unassigned, 78760.1.1 ity of [place] 3.104.2.7 [place] .3.042631 Medica l .8 [place] 2021-06-15 2021-06-15 Travel 1.2.840.1 1.2.843.279 2042 7719 Univers 00:00:00 00:00:00 49721.1.1 350.1.13.10 ity of 3.104.2.7 4.2.7.3.698 [place] .3.216151 084.8 Medica l .8 [place] 2021-06-11 2021-06-11 Refill [place], UNIVERSIT 1.2.098.170 2604 9185 Univers 00:00:00 00:00:00 [facility] 350.1.13.10 i ty of CL[place] 4[place].2.[place] [id number] Medi porfirio 089 Branch 2021-06-11 2021-06-11 Refill [place], 1.2.840.9 [id number] 185 Univers 00:00:00 00:00:00 Santiago 98769.1.1 ity of 3.104.2.7 [place] .3.358238 Medica l .8 [place] 2021-06-05 2021-06-05 Outpatient R EAST, [facility] [id number] Univers 09:00:00 09:00:00 SANTIAGO barbosa [facility] 2021-06-02 2021-06-02 Telephone [place], UNIVERSIT 1.2.840.114 [id number] Univers 00:00:00 00:00:00 [facility] HEALTH 350.1.13.10 i ty of [facility] 4.2.7.2.[place] [id number] [facility] 089 [place] 2021-06-02 2021-06-02 Telephone [place], 1.2.840.3 [id number] [id number] Univers 00:00:00 00:00:00 [place] 06085.1.1 ity of 3.104.2.7 [place] .3.609276 Medica l .8 [place] 2021-05-29 2021-05-29 Telephone [place], 1.2.840.5 [id number] 902 70546 Univers 00:00:00 00:00:00 [place] 80263.1.1 ity of 3.104.2.7 [place] .3.877379 Medica l .8 [place] 2021-05-29 2021-05-29 Telephone [place], 1.2.840.9 [id number] 902 [id number] Univers 00:00:00 00:00:00 [place] 15655.1.1 ity of 3.104.2.7 [place] .3.964435 Medica l .8 [place] 2021-05-25 2021-05-25 Outpatient R RODO, [facility] [id number] Univers 08:00:00 08:00:00 GADIEL vogel f [facility] 2021-04-29 2021-04-29 Outpatient R LALA [facility] [id number] Univers 08:00:00 08:00:00 NIKOLAI barbosa [facility] 2021-04-28 2021-04-28 Telephone [place], UTP 6400 1.2.840.114 [id number] DC 00:00:00 00:00:00 Beverly RUIZ 350.1.13.58 Health 9.2.7.2.686 [id number] 1 2021-04-28 2021-04-28 Telephone Jailyn 1.2.840.8 [id number] 21 [id number] Methodi 00:00:00 00:00:[address] 3.430.2.7 Hospit a .3.231366 l .8 2021-04-28 2021-04-28 Telephone Jailyn, 1.2.840.0 [id number] 21 [id number] Methodi 00:00:00 00:00:[address] 3.430.2.7 Hospit a .3.617289 l .8 2021-03-31 2021-03-31 Orders Carol Ann, 1.2.840.1 [id number] 21 [id number] Methodi 00:00:00 00:00:00 Only Sarai CorbinChelsie 28349.1.1 979 s t 3.430.2.7 Hospit a .3.609761 l .8 2021-03-30 2021-03-30 Outpatient R RODO, [facility] [id number] Univers 08:45:00 08:45:00 GADIEL rodas [facility] 2021-03-24 2021-03-24 Telephone Jailyn, 1.2.840.6 [id number] 21 [id number] Methodi 00:00:00 00:00:[address] 3.430.2.7 Hospit a .3.168218 l .8 2021-02-13 2021-02-13 Telephone Ronald, 1.2.840.6 [id number] 876 [id number] Univers 00:00:00 00:00:00 [place] 02386.1.1 ity of 3.104.2.7 [facility]3.892723 Medica [facility]8 Branch 2021-01-28 2021-01-28 Outpatient R LALA [facility] [id number] Univers 08:45:00 09:37:00 NIKOLAI barbosa [facility] 2021-01-28 2021-01-28 Travel 1.2.840.1 1.2.055.688 8400 9777 Univers 00:00:00 00:00:00 63262.1.1 350.1.13.10 ity of 3.104.2.7 4.[place].7.3.698 [place] .3.992493 084.8 Medica l .8 Branch 2021-01-19 2021-01-19 Telephone Prabhu, 1.2.840.1 [id number] 2100 [id number] Methodi 00:00:00 00:00:[address] 3.430.2.7 Hospit a .3.960763 l .8 2021-01-04 2021-01-04 Letter Shelia, 1.2.840.6 [id number] 696 Univers 00:00:00 00:00:00 (Out) Dagoberto H 51586.1.1 ity of 3.104.2.7 [place] .3.162777 Medica l .8 Branch 2021-01-04 2021-01-04 Letter Shelia, 1.2.840.7 [id number] 696 Univers 00:00:00 00:00:00 (Out) Dagoberto H 68830.1.1 ity of 3.104.2.7 [place] .3.062100 Medica l .8 Branch 2021-01-03 2021-01-03 Dmitry Bass, 1.2.840.8 [id number] 41682 790 Univers 00:00:00 00:00:00 (Out) Dagoberto H 29804.1.1 ity of 3.104.2.7 [place] .3.137043 Medica l .8 Branch 2021-01-03 2021-01-03 Dmitry Bass, 1.2.840.6 [id number] 27550 790 Univers 00:00:00 00:00:00 (Out) Dagoberto H 60091.1.1 ity of 3.104.2.7 [place] .3.395193 Medica l .8 Branch 2021-01-02 2021-01-02 Outpatient R [facility] [id number] 786 Univers 13:40:00 13:40:00 ity of [facility] 2021-01-02 2021-01-02 Laboratory Cuba Franks 1.2.840.5 [id number] 1583 [id number] Univers 12:14:13 12:57:34 Only Lab, [place] 88626.1.1 ity of 3.104.2.7 [place] .3.504308 Medica l .8 [place] 2021-01-02 2021-01-02 Laboratory Cuba Franks 1.2.840.3 [id number] [facility] 12:14:13 12:57:34 Only Lab, [facility] [place] 33609.1.1 ity of 3.104.2.7 [place] .3.270758 Medica l .8 [place] 2021-01-02 2021-01-02 Travel 1.2.840.1 1.2.473.951 0091 2306 Univers 00:00:00 00:00:00 54699.1.1 350.1.13.10 ity of 3.104.2.7 4.2.7.3.698 [place] .3.432928 084.8 Medica l .8 [place] 2021-01-02 2021-01-02 Letter Doctor 1.2.840.8 [id number] 26722 948 Univers 00:00:00 00:00:00 (Out) Unassigned, 81638.1.1 ity of [place] 3.104.2.7 [place] .3.054988 Medica l .8 [place] 2021-01-02 2021-01-02 Letter Doctor 1.2.840.5 [id number] 37933 946 Univers 00:00:00 00:00:00 (Out) Unassigned, 79783.1.1 ity of [place] 3.104.2.7 [place] .3.739617 Medica l .8 [place] 2021-01-02 2021-01-02 Travel 1.2.840.1 1.2.376.417 2808 2306 Univers 00:00:00 00:00:00 84012.1.1 350.1.13.10 ity of 3.104.2.7 4.2.7.3.698 [place] .3.415980 084.8 Medica l .8 [place] 2021-01-02 2021-01-02 Letter Doctor 1.2.840.7 [id number] 03021 948 Univers 00:00:00 00:00:00 (Out) Unassigned, 32395.1.1 ity of [place] 3.104.2.7 [place] .3.049142 Medica l .8 [place] 2021-01-02 2021-01-02 Letter Doctor 1.2.840.0 [id number] 72708 946 Univers 00:00:00 00:00:00 (Out) Unassigned, 02961.1.1 ity of [place] 3.104.2.7 [place] .3.843414 Medica l .8 Branch 2020-12-22 2020-12-22 Telephone Beltran, 1.2.840.0 [id number] 862 93012 Univers 00:00:00 00:00:00 Eligionda R 50213.1.1 i ty of 3.104.2.7 [place] .3.809509 Medica l .8 Branch 2020-12-22 2020-12-22 Telephone Beltran, 1.2.840.3 [id number] 862 21828 Univers 00:00:00 00:00:00 Amarilissandynda R 58227.1.1 i ty of 3.104.2.7 [place] .3.305432 Medica l .8 [place] 2020-12-12 2020-12-12 Office H[place], UTP 6400 1.2.840.114 12 [id number] DC 07:42:02 08:18:[address] 350.1.13.58 Health 9.2.7.2.686 149.8706925 1 2020-12-12 2020-12-12 Office Hematpour, UTP 6400 1.2.840.114 12 [id number] 07:42:02 08:18:[facility] 350.1.13.58 9.2.7.2.686 [id number] 1 2020-12-09 2020-12-09 Telephone Meisenbach, 1.2.840.1 [id number] Methodi 00:00:00 00:00:00 Sarai Lieberman 82853.1.1 316 s t 3.430.2.7 Hospit a .3.071301 l .8 2020-12-08 2020-12-08 [facility], 1.2.840.1 [id number] 2100 215620 Methodi 12:35:54 23:59:00 Encounter Ray 79050.1.[address] 3.430.2.7 Hospit a .3.087965 l .8 2020-12-08 2020-12-08 [facility], 1.2.840.1 [id number] 38281 23437 Methodi 17:25:00 17:30:[address] 3.430.2.7 Hospit a .3.344265 l .8 2020-12-08 2020-12-08 [facility], 1.2.840.1 [id number] 29827 57538 Methodi 10:30:00 11:39:56 Visit Ray 96551.1.[address] 3.430.2.7 Hospit a .3.014544 l .8 2020-12-08 2020-12-08 Travel 1.2.840.1 1.2.765.234 1641 121296 Methodi 00:00:00 00:00:[address] 3.430.2.7 0.2.7.3.698 Ho spita .3.563648 084.8 l .8 2020-12-02 2020-12-02 Cleaning Handyman [facility] UNIVERSIT 1.2.840.114 8 [id number] 10:20:06 10:36:19 Visit HEALTH 350.1.13.10 CLINICS 4.2.7.2.686 545.6019389 316 2020-12-02 2020-12-02 Cleaning Handyman [place] Cardenas 1.2.840.1 [id number] [facility] 10:20:06 10:36:19 Visit [facility] 05043.1.1 ity of 3.104.2.7 [place] .3.631722 Medica l .8 Branch 2020-12-02 2020-12-02 Cleaning Handyman Santiago Cardenas 1.2.840.1 [id number] Univers 10:20:06 10:36:19 Visit [facility] 04571.1.1 ity of 3.104.2.7 [place] .3.140103 Medica l .8 [place] 2020-12-02 2020-12-02 Office Ronald, 1.2.840.6 [id number] 26696 528 Univers 08:31:37 09:01:37 Visit Santiago 66645.1.1 ity of 3.104.2.7 [place] .3.785779 Medica l .8 [place] 2020-12-02 2020-12-02 [facility] [id number] Univers 09:00:00 09:00:00 [facility] 2020-11-25 2020-11-25 [facility] 1.2.840.114 [id number] 11:06:30 11:58:14 Visit Robbi Hairston ENVIRONMENTAL PROGRAMS SPECIALIST 350.1.13.10 REGIONAL 4.2.7.2.686 MATERNAL [id number] & CHILD [address] [place] [address] 2020-11-25 2020-11-25 Office Beltran, 1.2.840.0 [id number] 23020 865 Univers 11:06:30 11:58:14 Visit Robbi Hairston 67610.1.1 i ty of 3.104.2.7 [place] .3.491837 Medica l .8 [place] 2020-11-25 2020-11-25 Office Devin, 1.2.840.7 [id number] 33430 865 Univers 11:06:30 11:58:14 Visit Robbi Hairston 49793.1.1 i ty of 3.104.2.7 [place] .3.989812 Medica l .8 [place] 2020-11-25 2020-11-25 Outpatient R [facility] [id number] Univers 11:00:00 11:00:00 ity [facility] 2020-11-25 2020-11-25 Refill Ronald UNIVERSIT 1.2.689.953 9919 4592 00:00:00 00:00:00 [facility] 350.1.13.10 [facility] 4.2.7.2.686 [id number] 089 2020-11-25 2020-11-25 [facility] 1.2.599.850 7976 0821 00:00:00 00:00:00 Robbi Hairston ENVIRONMENTAL PROGRAMS SPECIALIST 350.1.13.10 [facility] 4.2.7.2.686 MATERNAL 561.9486128 & CHILD [address] [place] [address] 2020-11-25 2020-11-25 Telephone Devin, 1.2.840.7 [id number] 855 98904 Univers 00:00:00 00:00:00 Robbi Hairston 17177.1.1 i ty of 3.104.2.7 [place] .3.650831 Medica l .8 [place] 2020-11-25 2020-11-25 Refill [facility], 1.2.840.8 [id number] 51540 592 Univers 00:00:00 00:00:00 Santiago 37227.1.1 ity of 3.104.2.7 [place] .3.688147 Medica l .8 Branch 2020-11-25 2020-11-25 Travel 1.2.840.1 1.2.835.977 8415 0247 Univers 00:00:00 00:00:00 86043.1.1 350.1.13.10 ity of 3.104.2.7 4.2.7.3.698 [place] .3.563791 084.8 Medica l .8 [place] 2020-11-25 2020-11-25 Orders Doctor 1.2.840.7 [id number] 57978 064 Univers 00:00:00 00:00:00 Only Unassigned, 23421.1.1 ity of [place] 3.104.2.7 [place] .3.961434 Medica l .8 Branch 2020-11-25 2020-11-25 Telephone Devin, 1.2.840.3 [id number] 855 37134 Univers 00:00:00 00:00:00 Robbi Hairston 73524.1.1 i ty of 3.104.2.7 [place] .3.918610 Medica l .8 Branch 2020-11-25 2020-11-25 Refill [place], 1.2.840.1 [id number] 21420 592 Univers 00:00:00 00:00:00 Santiago 53095.1.1 ity of 3.104.2.7 [place] .3.210823 Medica l .8 Branch 2020-11-25 2020-11-25 Travel 1.2.840.1 1.2.793.902 4899 0247 Univers 00:00:00 00:00:00 86060.1.1 350.1.13.10 ity of 3.104.2.7 4.2.7.3.698 [place] .3.977656 084.8 Medica l .8 [place] 2020-11-25 2020-11-25 Orders Doctor 1.2.840.7 [id number] 82207 064 Univers 00:00:00 00:00:00 Only Unassigned, 31373.1.1 ity of [place] 3.104.2.7 [place] .3.158587 Medica l .8 [place] 2020-11-14 2020-11-14 Abstract Rodas, 1.2.840.1 [id number] 51156 69757 Methodi 00:00:00 00:00:[address] 3.430.2.7 Hospit a .3.344851 l .8 2020-11-14 2020-11-14 Telephone Clark, 1.2.840.1 [id number] 2100 981307 Methodi 00:00:00 00:00:[address] 3.430.2.7 Hospit a .3.725074 l .8 2020-11-12 2020-11-12 Outpatient Marika CARDENAS [facility] [id number] 323 Univers 08:30:00 08:30:00 SANTIAGO ity of [facility] 2020-11-07 2020-11-07 Telephone Agustina Ortiz 6400 1.2.840.11 4 [id number] DC 00:00:00 00:00:[address] 350.1.13.58 Health 9.2.7.2.686 [id number] 1 2020-11-07 2020-11-07 Telephone Diana, UTP 6400 1.2.840.114 124 [id number] 00:00:00 00:00:[address] 350.1.13.58 9.2.7.2.686 207.8917525 1 2020-10-31 2020-10-31 Office Hematpoliz, [facility] 6400 1.2.840.114 12 [id number] DC 07:54:00 09:45:[address] 350.1.13.58 Health 9.2.7.2.686 [id number] 1 2020-10-30 2020-10-30 Abstract Rody Maguire UTP 6400 1.2.840.1 14 [id number] DC 00:00:00 00:00:[address] 350.1.13.58 Health 9.2.7.2.686 335.5540481 1 2020-10-29 2020-10-29 Refill [place], 1.2.840.0 [id number] 56866 400 Univers 00:00:00 00:00:00 Santiago 84378.1.1 ity of 3.104.2.7 [place] .3.630246 Medica l .8 Branch 2020-10-29 2020-10-29 Refill [place], 1.2.840.1 [id number] 48966 400 Univers 00:00:00 00:00:00 Santiago 85090.1.1 ity of 3.104.2.7 [place] .3.286519 Medica l .8 Branch 2020-10-27 2020-10-27 Telephone Jailyn, 1.2.840.8 [id number] 21 [id number] Methodi 00:00:00 00:00:[address] 3.430.2.7 Hospit a .3.797380 l .8 2020-10-24 2020-10-24 Telephone Clark, 1.2.840.1 [id number] 2100 027583 Methodi 00:00:00 00:00:[address] 3.430.2.7 Hospit a .3.340224 l .8 2020-10-22 2020-10-22 Outpatient R SELF, [facility] [id number] Univers 13:00:00 13:00:00 GADIEL vogel [facility] 2020-10-22 2020-10-22 Travel 1.2.840.1 1.2.277.885 [id number] [id number] Univers 00:00:00 00:00:00 58892.1.1 350.1.13.10 ity of 3.104.2.[place].3.698 [place] .3.267163 084.8 Medica l .8 [place] 2020-10-22 2020-10-22 Travel 1.2.840.1 1.2.420.637 7580 3839 [facility] 00:00:00 00:00:00 02364.1.1 350.1.13.10 ity of 3.104.2.[place].3.698 [place] .3.055073 084.8 Medica l .8 [place] 2020-10-13 2020-10-13 Outpatient R SELF, [facility] [id number] Univers 08:45:00 08:45:00 GADIEL vogel [facility] 2020-10-06 2020-10-12 Telemedici Chidimasa, 1.2.840.1 [id number] 21 [id number] Methodi 15:30:00 00:08:46 ne Ray [address]684.1.[address] 3.430.2.7 Hospit a .3.807033 l .8 2020-09-30 2020-09-30 Telephone Chihara, 1.2.840.0 [id number] 21 [id number] Methodi 00:00:00 00:00:[address] 3.430.2.7 Hospit a .3.060677 l .8 2020-09-21 2020-09-21 Travel 1.2.840.1 1.2.948.424 7947 [id number] Methodi 00:00:00 00:00:[address] 3.430.2.7 0.2.7.3.698 Ho spita .3.589586 084.8 l .8 2020-09-06 2020-09-06 [facility] 1.2.840.1 [id number] 14427 Methodi 17:42:30 23:59:[address] 3.430.2.7 Hospit a .3.829979 l .8 2020-09-06 2020-09-06 [facility], 1.2.840.1 [id number] 2100 [id number] Methodi 16:50:00 17:41:00 Encounter Ray [address]282.1.[address] 3.430.2.7 Hospit a .3.581280 l .8 2020-09-05 2020-09-05 [facility], 1.2.840.1 [id number] 2099 [id number] Methodi 09:17:00 19:45:00 Encounter Ray [address].1.[address] 3.430.2.7 Hospit a .3.147386 l .8 2020-09-05 2020-09-05 [facility], 1.2.840.1 [id number] 45605 76866 Methodi 11:30:00 13:15:[address] 3.430.2.7 Hospit a .3.868760 l .8 2020-09-05 2020-09-05 Anesthesia [facility], 1.2.840.1 [id number] 866 [id number] Methodi 11:27:00 12:20:00 Event Johnathanthi 46827.1.1 243 s t V. 3.430.2.7 Hospit a .3.894026 l .8 2020-09-05 2020-09-05 Travel 1.2.840.1 1.2.996.164 2494 [id number] Methodi 00:00:00 00:00:[address] 3.430.2.7 0.2.7.3.698 spita .3.092129 084.8 l .8 2020-09-04 2020-09-04 Telephone Meisenbach, 1.2.840.1 [id number] Methodi 00:00:00 00:00:00 Sarai Corbin. 19895.1.1 762 s t 3.430.2.7 Hospit a .3.264339 l .8 2020-09-02 2020-09-02 Telephone Meisenbach, 1.2.840.0 [id number] Methodi 00:00:00 00:00:00 Sarai Corbin. 05333.1.1 344 s t 3.430.2.7 Hospit a .3.077156 l .8 2020-08-29 2020-08-30 Bedded [facility] [id number] [facility] 10:20:00 14:10:00 Outpatient r [place] 00 l [facility] 2020-08-29 2020-08-30 Outpatient HEMATPOUR, [facility] CAR 7500 [facility] 05:20:00 09:10:00 [place] 2020-08-06 2020-08-06 [place], 1.2.840.2 [id number] Univers 08:03:23 09:17:49 Visit Santiago 67583.1.1 ity of 3.104.2.7 [place] .3.055865 Medica l .8 [place] 2020-08-06 2020-08-06 Outpatient [facility] [id number] Univers 08:30:00 08:30:00 SANTIAGO itcharlie of [facility] 2020-07-14 2020-07-14 Outpatient R SELF, [facility] [id number] Univers 09:30:00 09:30:00 GADIEL barbosa o f [facility] 2020-07-14 2020-07-14 Travel 1.2.840.1 1.2.425.545 3617 [id number] Univers 00:00:00 00:00:00 84223.1.1 350.1.13.10 ity of 3.104.2.7 4.[place]7.3.698 [place] .3.195397 084.8 Medica l .8 [place] 2020-07-14 2020-07-14 Orders Doctor 1.2.840.8 [id number] Univers 00:00:00 00:00:00 Only Unassigned, 94456.1.1 ity of [place] 3.104.2.7 [place] .3.019574 Medica l .8 [place] 2020-06-16 2020-06-16 Outpatient R [facility], [facility] [id number] Univers 08:00:00 08:00:00 GADIEL barbosa o f [facility] 2020-06-06 2020-06-06 Telephone [place], 1.2.840.7 [id number] [id number] Univers 00:00:00 00:00:00 [place] 48124.1.1 ity of 3.104.2.7 [place] .3.564004 Medica l .8 [place] 2020-06-04 2020-06-04 Cleaning Handyman Santiago Cardenas 1.2.840.1 [id number] Univers 09:31:58 09:40:12 Visit [facility] 22549.1.1 ity of 3.104.2.7 [place] .3.694347 Medica l .8 [place] 2020-06-04 2020-06-04 Office RonaldFRANCO 1.2.433.492 2631 [id number] Univers 08:13:41 09:28:25 Visit Santiago [facility] 350.1.13.10 i ty of [place] [id number] [facility] [address] [place] 2020-06-04 2020-06-04 Outpatient [facility] [id number] Univers 08:30:00 08:30:00 SANTIAGO barbosa of [facility] 2020-06-04 2020-06-04 Orders Doctor 1.2.840.9 [id number] Univers 00:00:00 00:00:00 Only Unassigned, 89697.1.1 ity of [place] 3.104.2.7 [place] .3.049327 Medica l .8 [place] 2020-05-19 2020-05-19 Telephone East, 1.2.840.5 [id number] Univers 00:00:00 00:00:00 [place] 88511.1.1 ity of 3.104.2.7 [place] .3.252569 Medica l .8 [place] 2020-04-24 2020-04-24 Telephone East, 1.2.840.9 [id number] Univers 00:00:00 00:00:00 [place] 14972.1.1 ity of 3.104.2.7 [place] .3.891288 Medica l .8 [place] 2020-04-14 2020-04-14 Outpatient R [facility], [facility] [id number] Univers 09:00:00 09:00:00 SANTIAGO ity of [facility] 2020-04-14 2020-04-14 Telephone East, 1.2.840.2 [id number] Univers 00:00:00 00:00:00 [place] 74191.1.1 ity of 3.104.2.7 [place] .3.530053 Medica l .8 [place] 2020-03-31 2020-03-31 Outpatient R [facility], [facility] [id number] Univers 08:30:00 08:30:00 SANTIAGO ity of [facility] 2020-03-03 2020-03-03 Outpatient R SELF, [facility] [id number] Univers 08:00:00 08:00:00 GADIEL vogel f [facility] 2020-03-03 2020-03-03 Outpatient R SELF, [facility] [id number] Univers 08:00:00 08:00:00 GADIEL barbosa o f [facility] 2020-03-03 2020-03-03 Travel 1.2.840.1 1.2.051.198 [id number] Univers 00:00:00 00:00:00 62016.1.1 350.1.13.10 ity of 3.104.2.7 4[place]7.3.698 [place] .3.860700 084.8 Medica l .8 [place] 2020-02-06 2020-02-06 Telephone East, 1.2.840.2 [id number] Univers 00:00:00 00:00:00 [place] 88815.1.1 ity of 3.104.2.7 [place] .3.499493 Medica l .8 [place] 2020-01-26 2020-01-26 Emergency Caridad, 1.2.840.4 [id number] Univers 10:03:00 13:05:00 Cynise 79219.1.1 ity of 3.104.2.7 [place] .3.777872 Medica l .8 [place] 2020-01-26 2020-01-26 Travel 1.2.840.1 1.2.543.261 [id number] Univers 00:00:00 00:00:00 82409.1.1 350.1.13.10 ity of 3.104.2.7 4[place]7.3.698 [place]3.124942 084.8 Medica l .8 [place] 2020-01-25 2020-01-25 Outpatient R [facility], [facility] [id number] Univers 08:30:00 08:30:00 SANTIAGO ity of [facility] 2020-01-25 2020-01-25 Telemedici East, 1.2.840.5 [id number] Univers 07:36:49 08:06:49 ne Visit [place] 56633.1.1 ity of 3.104.2.7 [place] .3.752419 Medica l .8 [place] 2020-01-16 2020-01-16 Outpatient R [facility]AST, [facility] [id number] Univers 08:00:00 08:00:00 SANTIAGO ity of [facility] 2020-01-16 2020-01-16 Telephone East, 1.2.840.8 [id number] Univers 00:00:00 00:00:00 [place] 70327.1.1 ity of 3.104.2.7 [place] .3.247867 Medica l .8 [place] 2020-01-14 2020-01-14 Outpatient R SELF, [facility] [id number] Univers 08:00:00 08:00:00 GADIEL maciely o f [facility] 2019-12-31 2019-12-31 Outpatient R SELF, [facility] [id number] Univers 08:45:00 08:45:00 GADIEL vogel clark [facility] 2019-10-17 2019-10-17 Outpatient R [facility] [id number] Univers 08:30:00 08:30:00 SANTIAGO barbosa [facility] 2019-10-12 2019-10-12 Outpatient R [facility] [id number] Univers 13:00:00 13:00:00 SANTIAGO ity [facility] 2019-10-12 2019-10-12 Telemedici [place], 1.2.840.1 [id number] Univers 07:38:30 08:08:30 ne Visit [place] 03939.1.1 ity of 3.104.2.7 [place] .3.302122 Medica l .8 [place] 2019-10-08 2019-10-08 Outpatient R [facility] [id number] Univers 10:15:00 10:15:00 GADIEL rodas [facility] 2019-10-03 2019-10-03 Case Assman, 1.2.840.7 [id number] Univers 00:00:00 00:00:00 Management Michael Corbin 20992.1.1 i ty of 3.104.2.7 [place] .3.065342 Medica l .8 [place] 2019-09-27 2019-09-27 Telephone East, 1.2.840.2 [id number] Univers 00:00:00 00:00:00 [place] 42890.1.1 ity of 3.104.2.7 [place] .3.743263 Medica l .8 [place] 2019-09-04 2019-09-04 Refill East, 1.2.840.1 [id number] Univers 00:00:00 00:00:00 [place] 61305.1.1 ity of 3.104.2.7 [place] .3.394439 Medica l .8 [place] 2019-07-24 2019-07-24 Outpatient R [facility] [id number] Univers 08:30:00 08:30:00 SANTIAGO barbosa [facility] 2019-07-17 2019-07-17 [id number] Univers 10:00:00 10:00:00 SANTIAGO ity of [facility] 2019-06-15 2019-06-15 Telephone East, 1.2.840.0 [id number] Univers 00:00:00 00:00:00 [place] 24252.1.1 ity of 3.104.2.7 [place] .3.214671 Medica l .8 [place] 2019-06-13 2019-06-13 Telephone Team, [facility] 1.2.840.6 [id number] Univers 00:00:00 00:00:00 Health 81938.1.1 [place] .3.834908 Med[place] .8 [place] 2019-05-10 2019-05-10 Refill Ronald, 1.2.840.9 [id number] Univers 00:00:00 00:00:00 [place] 59097.1.1 ity of 3.104.2.7 [place] .3.619182 Medica l .8 [place] 2019-05-09 2019-05-09 Refill Ronald, 1.2.840.0 [id number] Univers 00:00:00 00:00:00 [place] 86228.1.1 ity of 3.104.2.7 [place] .3.691872 Medica l .8 [place] 2019-04-30 2019-04-30 Outpatient R [facility] [id number] Univers 10:15:00 10:33:05 GADIEL barbosa o f [facility] 2019-04-18 2019-04-18 Cleaning Handyman [place] Cardenas 1.2.840.1 [id number] Univers 10:00:39 10:44:31 Visit [facility] 27552.1.1 ity of 3.104.2.7 [place] .3.923141 Medica l .8 [place] 2019-04-18 2019-04-18 [facility] [id number] Univers 10:00:00 10:44:31 SANTIAGO barbosa of [facility] 2019-04-18 2019-04-18 Office Ronald, 1.2.840.3 [id number] Univers 08:27:44 09:53:27 Visit [place] 52501.1.1 ity of 3.104.2.7 [place] .3.733653 Medica l .8 [place] 2019-04-18 2019-04-18 Orders Doctor 1.2.840.3 [id number] Univers 00:00:00 00:00:00 Only Unassigned, 32721.1.1 ity of [place] 3.104.2.7 [place] .3.984459 Medica l .8 [place] 2019-04-11 2019-04-11 Refill East, 1.2.840.4 [id number] Univers 00:00:00 00:00:00 [place] 21064.1.1 ity of 3.104.2.7 [place] .3.799961 Medica l .8 [place] 2019-04-09 2019-04-09 Refill East, 1.2.840.5 [id number] Univers 00:00:00 00:00:00 [place] 07512.1.1 ity of 3.104.2.7 [place] .3.401288 Medica l .8 [place] 2019-04-03 2019-04-03 Telephone Team, [facility] 1.2.840.4 [id number] Univers 00:00:00 00:00:00 Health 15617.1.1 [place] .3.328163 Med[place] .8 [place] 2019-03-27 2019-03-27 Telephone Self, 1.2.840.1 [id number] Univers 00:00:00 00:00:00 Gadiel 77964.1.1 ity of 3.104.2.7 [place] .3.344114 Medica l .8 [place] 2019-01-17 2019-01-17 Office East, 1.2.840.0 [id number] Univers 07:37:21 10:32:51 Visit [place] 97654.1.1 ity of 3.104.2.7 [place] .3.183364 Medica l .8 [place] 2019-01-04 2019-01-12 Office Eveline Hansen 1.2.840.4 [id number] Univers 11:19:32 11:08:05 Visit Mariela 12030.1.1 ity of 3.104.2.7 [place] .3.611290 Medica l .8 [place] 2019-01-10 2019-01-10 Telephone Stanislav, 1.2.840.5 [id number] Univers 00:00:00 00:00:00 Eladio Inman 46892.1.1 ity of 3.104.2.7 [place] .3.271079 Medica l .8 [place] 2018-12-18 2018-12-18 Office Geraldine, 1.2.840.1 [id number] Univers 08:48:45 09:13:43 Visit Leyda 34778.1.1 it y of 3.104.2.7 [place] .3.935126 Medica l .8 [place] 2018-10-30 2018-10-30 Telephone East, 1.2.840.9 [id number] Univers 00:00:00 00:00:00 [place] 70474.1.1 ity of 3.104.2.7 [place] .3.235220 Medica l .8 [place] 2018-10-23 2018-10-23 Orders Doctor 1.2.840.8 [id number] Univers 00:00:00 00:00:00 Only Unassigned, 79290.1.1 ity of [place] 3.104.2.7 [place] .3.053746 Medica l .8 [place] 2018-10-23 2018-10-23 Nurse Selvin, 1.2.840.2 [id number] Univers 00:00:00 00:00:00 Triage Stefanie 58338.1.1 ity of 3.104.2.7 [place] .3.872675 Medica l .8 [place] 2018-10-23 2018-10-23 Telephone Self, 1.2.840.9 [id number] Univers 00:00:00 00:00:00 Gadiel 07612.1.1 ity of 3.104.2.7 [place] .3.203164 Medica l .8 [place] 2018-10-20 2018-10-20 Telephone Self, 1.2.840.4 [id number] Univers 00:00:00 00:00:00 Gadiel 05603.1.1 ity of 3.104.2.7 [place] .3.993715 Medica l .8 [place] Results Test Description Test Time Test Comments Results Result Comments Source BLOOD CULTURE SCREEN 2022-02-16 06:01:07 Test Item Value Reference Range Interpretation Comme nts Blood Culture-Aerobic (test No organisms isolated No growth Previous preliminary code = 64080-3) verified res ult was Culture In Prog [...] No growth Previous preliminary (test code = 88873-0) verifi ed result was Culture In Prog [...] CDT Lab Interpretation (test Normal code = 50739-7) [facility] [id number] 06:01:07 Test Item Value Reference Range Interpretation Comments Blood Culture-Aerobic No organisms No growth Previo us (test code = 72956-5) isolated prelim inary verified result was Culture [...] Culture-Anaerobic isolated preliminar y (test code = 57732-5) verifi ed result was Culture In Progress [...] CDT Lab Interpretation Normal (test code = 12632-6) [facility] [id number] 06:01:07 Test Item Value Reference Range Interpretation Comments Blood Culture-Aerobic No organisms No growth Previo us (test code = 17591-2) isolated prelim inary verified result was Culture [...] Culture-Anaerobic isolated preliminar y (test code = 52594-9) verifi ed result was Culture In Progress [...] CDT Lab Interpretation Normal (test code = 69388-5) [facility] [id number] 10:49:10 Test Item Value Reference Range Interpretation Comments NT-proBNP (test code 2660 pg/mL See_Comment H [Autom ated = 3982986864) message] The system which generated this result transmitted reference range : <=125. The reference range was not used to interpret this result as normal/abnormal . KYLE (test code = KYLE) Biotin has been reported to cause a negative bias, interpret results relative to patient's use of biotin. Lab Interpretation Abnormal (test code = 20676-5) [facility] [id number] 10:49:10 Test Item Value Reference Range Interpretation Comments NT-proBNP (test code 2660 pg/mL See_Comment H [Autom ated = 3436210484) message] The system which generated this result transmitted reference range : <=125. The reference range was not used to interpret this result as normal/abnormal . KYLE (test code = KYLE) Biotin has been reported to cause a negative bias, interpret results relative to patient's use of biotin. Lab Interpretation Abnormal (test code = 48929-5) [facility] (NA, K, CL, CO2, GLUCOSE, BUN, CREATININE, CA)2022-02-15 10:44:07 Test Item Value Reference Range Interpretation Comments NA (test code = 134 mmol/L 135-145 L 0572746832) K (test code = 3.2 mmol/L 3.5-5 L 1266355464) CL (test code = 98 mmol/L 98-108 2722423748) CO2 TOTAL (test code = 27 mmol/L 23-31 9111059889) AGAP (test code = 2-16 2730385077) BUN (test code = 19 mg/dL 7-23 0613703852) GLUCOSE (test code = 102 mg/dL 70-110 3994715641) CREATININE (test code = 0.95 mg/dL 0.5-1.04 8565791044) CALCIUM (test code = 8.5 mg/dL 8.6-10.6 L 1821211013) eGFR (test code = mL/min/1.73m2 9038665772) KYLE (test code = KYLE) Association of [...] tests). Lab Interpretation Abnormal (test code = 99417-4) [facility]2022-09-26 10:44:07 Test Item Value Reference Range Interpretation Comments MAGNESIUM (test code = 5958488961) 1.8 mg/dL 1.7-2.4 Lab Interpretation (test code = Normal 23588-5[facility] 10:44[facility]07 Test Item Value Reference Range Interpretation Comments MAGNESIUM (test code = 3954643658) 1.8 mg/dL 1.7-2.4 Lab Interpretation (test code = Normal 90899-3) [facility] (NA, K, CL, CO2, GLUCOSE, BUN, CREATININE, CA)2022-02-15 10:44:07 Test Item Value Reference Range Interpretation Comments NA (test code = 134 mmol/L 135-145 L 4263903130) K (test code = 3.2 mmol/L 3.5-5.0 L 9098801268) CL (test code = 98 mmol/L 98-108 3170008361) CO2 TOTAL (test code = 27 mmol/L 23-31 7782559501) AGAP (test code = 2-16 6214750992) BUN (test code = 19 mg/dL 7-23 6756175406) GLUCOSE (test code = 102 mg/dL 70-110 3184610990) CREATININE (test code = 0.95 mg/dL 0.50-1.04 3242508384) CALCIUM (test code = 8.5 mg/dL 8.6-10.6 L 7698502274) eGFR (test code = mL/min/1.73m2 7659436150) KYLE (test code = KYLE) Association of [...] tests). Lab Interpretation Abnormal (test code = 25323-8) [facility] WITH [id number] 10:12:06 Test Item Value Reference Range Interpretation Comments WBC (test code = See_Comment L [Automated 7790-2) message] The sy stem which generated this result transmitted reference range : 4.30 - 11.10 10*3/?L. The reference range was not used to interpret this result as normal/abnormal . RBC (test code = See_Comment L [Automated 739-8) message] The sy stem which generated this [...] RDW-SD (test code = 47.8 fL 39-49.9 24277-7) RDW-CV (test code = 15.2 % 12-15.5 788-0) PLT (test code = See_Comment L [Automated 777-3) message] The sy stem which generated this result transmitted reference range : 166 - 358 10*3/ ?L. The reference r abbey was not used to interpret this result as normal/abnormal . MPV (test code = 8.9 fL 9.5-12.9 L 83023-5) NRBC/100 WBC (test See_Comment [Automat ed code = 5282656169) message] The system which generated this result transmitted reference range : 0.0 - 10.0 /100 WBCs. The refer ence range was not u sed to interpret th is result as normal/abnormal . NRBC x10^3 (test code See_Comment [Auto mated = 2366422155) message] The s ystem which generated this result transmitted reference range : 10*3/?L. The reference range was not used to interpret this result as normal/abnormal . GRAN MAT (NEUT) % 65.9 % (test code = 770-8) IMM GRAN % (test code 0.30 % = 0740138417) LYMPH % (test code = 21.0 % 736-9) MONO % (test code = 10.1 % 5905-5) EOS % (test code = 2.4 % 713-8) BASO % (test code = 0.3 % 706-2) GRAN MAT x10^3(ANC) 2.49 10*3/uL 1.88-7.09 (test code = 4045133536) IMM GRAN x10^3 (test 0-0.06 code = 8570889116) LYMPH x10^3 (test code 0.79 10*3/uL 1.32-3.29 L = 731-0) MONO x10^3 (test code 0.38 10*3/uL 0.33-0.92 = 742-7) EOS x10^3 (test code = 0.09 10*3/uL 0.03-0.39 711-2) BASO x10^3 (test code 0.01-0.07 = 704-7) Lab Interpretation Abnormal (test code = 95043-6) [facility] WITH [id number] 10:12:06 Test Item Value Reference Range Interpretation [...] RDW-SD (test code = 47.8 fL 39.0-49.9 14835-5) RDW-CV (test code = 15.2 % 12.0-15.5 788-0) PLT (test code = See_Comment L [Automated 777-3) message] The sy stem which generated this result transmitted reference range : 166 - 358 10*3/ ?L. The reference r abbey was not used to interpret this result as normal/abnormal . MPV (test code = 8.9 fL 9.5-12.9 L 68478-2) NRBC/100 WBC (test See_Comment [Automat ed code = 0628531331) message] The system which generated this result transmitted reference range : 0.0 - 10.0 /100 WBCs. The refer ence range was not u sed to interpret th is result as normal/abnormal . NRBC x10^3 (test code See_Comment [Auto mated = 7697191055) message] The s ystem which generated this result transmitted reference range : 10*3/?L. The reference range was not used to interpret this result as normal/abnormal . GRAN MAT (NEUT) % 65.9 % (test code = 770-8) IMM GRAN % (test code 0.30 % = 1861209907) LYMPH % (test code = 21.0 % 736-9) MONO % (test code = 10.1 % 5905-5) EOS % (test code = 2.4 % 713-8) BASO % (test code = 0.3 % 706-2) GRAN MAT x10^3(ANC) 2.49 10*3/uL 1.88-7.09 (test code = 6585672275) IMM GRAN x10^3 (test 0.00-0.06 code = 6249698708) LYMPH x10^3 (test code 0.79 10*3/uL 1.32-3.29 L = 731-0) MONO x10^3 (test code 0.38 10*3/uL 0.33-0.92 = 742-7) EOS x10^3 (test code = 0.09 10*3/uL 0.03-0.39 711-2) BASO x10^3 (test code 0.01-0.07 = 704-7) Lab Interpretation Abnormal (test code = 01019-7) [facility] WITH [id number] 11:18:28 Test Item Value Reference Range Interpretation [...] RDW-SD (test code = 49.5 fL 39-49.9 19501-7) RDW-CV (test code = 15.5 % 12-15.5 788-0) PLT (test code = See_Comment L [Automated 777-3) message] The sy stem which generated this result transmitted reference range : 166 - 358 10*3/ ?L. The reference r abbey was not used to interpret this result as normal/abnormal . MPV (test code = 11.4 fL 9.5-12.9 00116-3) IPF % (test code = 8.7 % 1.3-7.7 H Platelet count 3706911882) measured by fluorescence method. NRBC/100 WBC (test See_Comment [Automat ed code = 9206692608) message] The system which generated this result transmitted reference range : 0.0 - 10.0 /100 WBCs. The refer ence range was not u sed to interpret th is result as normal/abnormal . NRBC x10^3 (test code See_Comment [Auto mated = 0381020906) message] The s ystem which generated this result transmitted reference range : 10*3/?L. The reference range was not used to interpret this result as normal/abnormal . GRAN MAT (NEUT) % 62.0 % (test code = 770-8) IMM GRAN % (test code 0.80 % = 9730019789) LYMPH % (test code = 22.2 % 736-9) MONO % (test code = 9.6 % 5905-5) EOS % (test code = 5.1 % 713-8) BASO % (test code = 0.3 % 706-2) GRAN MAT x10^3(ANC) 2.21 10*3/uL 1.88-7.09 (test code = 4929395555) IMM GRAN x10^3 (test 0.03 10*3/uL 0-0.06 code = 3300344963) LYMPH x10^3 (test code 0.79 10*3/uL 1.32-3.29 L = 731-0) MONO x10^3 (test code 0.34 10*3/uL 0.33-0.92 = 742-7) EOS x10^3 (test code = 0.18 10*3/uL 0.03-0.39 711-2) BASO x10^3 (test code 0.01-0.07 = 704-7) POLYCHROMASIA (test 2+ See_Comment [Automa arpit code = 41959-3) message] The system which generated this result [...] . Lab Interpretation Abnormal (test code = 90406-2) [facility] METABOLIC PANEL (NA, K, CL, CO2, GLUCOSE, BUN, CREATININE, CA)2022-02-13 10:39:07 Test Item Value Reference Range Interpretation Comments NA (test code = 136 mmol/L 135-145 3211105772) K (test code = 4.1 mmol/L 3.5-5 5157844836) CL (test code = 102 mmol/L 98-108 8819210945) CO2 TOTAL (test code = 27 mmol/L 23-31 1682635686) AGAP (test code = 2-16 3966663834) BUN (test code = 22 mg/dL 7-23 7544067634) GLUCOSE (test code = 94 mg/dL 70-110 0863161041) CREATININE (test code = 0.94 mg/dL 0.5-1.04 6442845525) CALCIUM (test code = 8.1 mg/dL 8.6-10.6 L 9811395054) eGFR (test code = mL/min/1.73m2 5287582961) KYLE (test code = KYLE) Association of [...] tests). Lab Interpretation Abnormal (test code = 62978-1) [facility]2022-02-12 01:50:10 Test Item Value Reference Range Interpretation Comments Height (test code = in 7228717902) Weight (test code = lbs 8319941638) Systolic BP (test code mmHg = 6913753610) Diastolic BP (test code mmHg = 4421283218) Heart Rate (test code = bpm 1743064580) BSA (test code = 1.85 m2 9297838895) IVS (test code = 1.22 cm 4715448768) Interventricular Septum 1.22 cm Diastolic Thickness by 2D (test code = 9539840) LVIDD (test code = 5.00 cm 6354803191) Left Ventricular End 117.9 mL Diastolic Volume by Teichholz Method (test code = 5861375) LVPWD (test code = 1.22 cm 0237676897) PW (test code = 1.22 cm 0.6-1.0 6404346693) EF(Teich) (test code = 74.60 % 2219939389) LVIDS (test code = 2.80 cm 9853858179) Left Ventricular End 29.9 mL Systolic Volume by Teichholz Method (test code = 1573371) FS (test code = 44 % 3829366012) EF - 2D (test code = 74.60 % 40039424) LVOT diameter (test 2.16 cm code = 0251706958) LVOT area (test code = 3.70 cm2 3593729811) Ao root diam (test code 3.40 cm = 1920158108) Aortic root (test code 3.4 cm = 3124849755) Ao root annulus (test 3.4 cm code = 5386829716) LA size (test code = 3.4 cm 7694013036) TR Peak Spencer (test code 330.0 cm/s = 2233634480) Triscuspid Valve mmHg Regurgitation Peak Gradient (test code = 7471579732) PV REGURGITATION PEAK mmHg GRADIENT (test code = 9403469859) PI dec slope (test code 137.20 cm/s2 = 9027712209) LAV(MOD-sp4) (test code 102.90 mL = 5082209870) MV Peak E Spencer (test 84.1 cm/s code = 3217745902) MV Peak A Spencer (test 40.1 cm/s code = 6020552909) E/A ratio (test code = ratio 8131731596) MV valve area p 1/2 3.70 cm2 method (test code = 9163345726) MV dec slope (test code 413.00 cm/s2 = 7202091071) MV P1/2t max spencer (test 83.70 cm/s code = 2691946650) MV Prop V (test code = 41.80 cm/s 2062428888) Tapse (test code = 1.83 cm 2506146809) LVOT stroke volume 96.90 cm3 (test code = 5218128710) LVOT peak spencer (test 125.5 cm/s code = 9293113366) LVOT mn grad (test code mmHg = 6069596892) AV LVOT peak gradient mmHg (test code = 7949494883) LVOT peak VTI (test 26.4 cm code = 7232861851) LV V1 mean (test code = 78.10 cm/s 8860609216) Aortic valve mean 103.7 cm/s velocity (test code = 2102777993) Ao peak spencer (test code 165.6 cm/s = 0142942067) Ao VTI (test code = 37.2 cm 1622401210) AV area by cont VTI 2.6 cm2 (test code = 6472066076) AV area peak spencer (test 2.8 cm2 code = 7408912345) Ao max PG (test code = 11.00 mm[Hg] 4421635234) AV peak gradient (test mmHg code = 8828657158) AV valve area (test 2.60 cm2 code = 0368611441) AV mean gradient (test mmHg code = 3797090845) LA Volume Index (BP) 55.2 mL/m2 (test code = 3580680003) LA volume (BP) (test 102.1 mL code = 8193609989) LAV(MOD-sp2) (test code 86.10 mL = 4912426594) A2C EF (test code = 61.20 % 4917227488) EF(sp2-el) (test code = 61.60 % 6853509107) SV(MOD-sp2) (test code 47.10 mL = 4142463636) LV Diastolic Volume 70.7 mL (BP) (test code = 6858002772) A4C EF (test code = 53.00 % 3699494814) EF(MOD-bp) (test code = 56.70 % 0799965455) EF(sp4-el) (test code = 53.90 % 3179829579) LV Systolic Volume (BP) 30.6 mL (test code = 8180634349) SV(MOD-bp) (test code = 40.10 mL 0021378217) SV(MOD-sp4) (test code 32.40 mL = 4452702667) SV(sp4-el) (test code = 33.10 mL 2887255845) EF (test code = 5031283010) Left Ventricular Stroke 40.1 mL Volume by 2-D Biplane-MOD (test code = 8148339) LV Diastolic Volume 38.2 mL/m2 Index (BP) (test code = 8751181305) LV Systolic Volume 16.5 mL/m2 Index (BP) (test code = 0970669020) Radiology Study observation (narrative) (test code = 32422-9) KYLE (test code = KYLE) ?Left?Ventricle: Left [...] 1.00The left ventricular wall motion is normal. [id number] 05:45:01 Test Item Value Reference Interpretation Comments Range TROPONIN I (test See_Comment [Automated code = 8390895433) message] The system which generated this result [...] biotin. Lab Interpretation Normal (test code = 09476-7) [facility] [id number] 05:41:40 Test Item Value Reference Range Interpretation Comments NT-proBNP (test code 4250 pg/mL See_Comment H [Autom ated = 3356085502) message] The system which generated this result transmitted reference range : <=125. The reference range was not used to interpret this result as normal/abnormal . KYLE (test code = KYLE) Biotin has been reported to cause a negative bias, interpret results relative to patient's use of biotin. Lab Interpretation Abnormal (test code = 31758-5) [facility] [id number] 05:35:21 Test Item Value Reference Range Interpretation Comments APTT Patient (test See_Comment [Automat ed code = 3173-2) message] The system which generated this result transmitted reference range : 23 - 38 Seconds . The reference range was not used to interpr et this result as normal/abnormal . KYLE (test code = KYLE) The [facility] patient population mean normal value for aPTT is 30 seconds. Lab Interpretation Normal (test code = 22797-7) [facility] [facility]ACTIV[facility] PARTIAL THRMPLAS [id number] 05:35:21 Test Item Value Reference Range Interpretation Comments APTT Patient (test See_Comment [Automat ed code = 3173-2) message] The system which generated this result transmitted reference range : 23 - 38 Seconds . The reference range was not used to interpr et this result as normal/abnormal . KYLE (test code = KYLE) The [facility] patient population mean normal value for aPTT is 30 seconds. Lab Interpretation Normal (test code = 53769-1) [facility] HospitalPROTHROMBIN TIME / [id number] 05:33:21 Test Item Value Reference Range Interpretation [...] tions. Lab Interpretation (test Normal code = 40408-6) [facility]COMP[facility] METABOLIC PANEL (03487)2022-02-11 05:33:21 Test Item Value Reference Range Interpretation Comments NA (test code = 137 mmol/L 135-145 7989627283) K (test code = 4.3 mmol/L 3.5-5 6008929093) CL (test code = 103 mmol/L 98-108 3584586371) CO2 TOTAL (test code = 25 mmol/L 23-31 6499723416) AGAP (test code = 2-16 5328728562) BUN (test code = 19 mg/dL 7-23 5215421142) GLUCOSE (test code = 120 mg/dL 70-110 H 2065298412) CREATININE (test code = 1.15 mg/dL 0.5-1.04 H 7227596092) TOTAL BILI (test code = 0.9 mg/dL 0.1-1.0 6118309138) CALCIUM (test code = 8.9 mg/dL 8.6-10.6 8098566801) T PROTEIN (test code = 6.6 g/dL 6.3-8.2 7848578935) ALBUMIN (test code = 4.0 g/dL 3.5-5 5555368609) ALK PHOS (test code = 73 U/L 34-122 2574900868) ALTv (test code = 18 U/L 5-35 2-6) AST(SGOT) (test code = 31 U/L 13-40 3723296982) eGFR (test code = mL/min/1.73m2 2819707564) KYLE (test code = KYLE) Association of [...] tests). Lab Interpretation Abnormal (test code = 39472-8) [facility]. METABOLIC PANEL (81801)2022-02-11 05:33:21 Test Item Value Reference Range Interpretation Comments NA (test code = 137 mmol/L 135-145 3960596599) K (test code = 4.3 mmol/L 3.5-5.0 8614195976) CL (test code = 103 mmol/L 98-108 4769452316) CO2 TOTAL (test code = 25 mmol/L 23-31 3015822591) AGAP (test code = 2-16 7309950077) BUN (test code = 19 mg/dL 7-23 6253214132) GLUCOSE (test code = 120 mg/dL 70-110 H 9965509951) CREATININE (test code = 1.15 mg/dL 0.50-1.04 H 5542320539) TOTAL BILI (test code = 0.9 mg/dL 0.1-1.8 5316473002) CALCIUM (test code = 8.9 mg/dL 8.6-10.6 5354830031) T PROTEIN (test code = 6.6 g/dL 6.3-8.2 7240439040) ALBUMIN (test code = 4.0 g/dL 3.5-5.0 9898296906) ALK PHOS (test code = 73 U/L 34-122 9830442038) ALTv (test code = 18 U/L 5-35 2-6) AST(SGOT) (test code = 31 U/L 13-40 9498863089) eGFR (test code = mL/min/1.73m2 9437268519) KYLE (test code = KYLE) Association of [...] tests). Lab Interpretation Abnormal (test code = 88703-8) [facility] HospitalPROTHROMBIN TIME / [id number] 05:33:21 Test Item Value Reference Range Interpretation [...] tions. Lab Interpretation (test Normal code = 46726-5) [facility] HospitalCB WITH [id number] 05:14:37 Test Item Value Reference Range Interpretation Comments WBC (test code = See_Comment [Automated 6390-2) message] The sy stem which generated this result transmitted reference range : 4.30 - 11.10 10*3/?L. The reference range was not used to interpret this result as normal/abnormal . RBC (test code = See_Comment L [Automated 189-8) message] The sy stem which generated this [...] RDW-SD (test code = 47.9 fL 39-49.9 87232-8) RDW-CV (test code = 14.9 % 12-15.5 788-0) PLT (test code = See_Comment L [Automated 777-3) message] The sy stem which generated this result transmitted reference range : 166 - 358 10*3/ ?L. The reference r abbey was not used to interpret this result as normal/abnormal . MPV (test code = 9.1 fL 9.5-12.9 L 23975-1) NRBC/100 WBC (test See_Comment [Automat ed code = 8442596442) message] The system which generated this result transmitted reference range : 0.0 - 10.0 /100 WBCs. The refer ence range was not u sed to interpret th is result as normal/abnormal . NRBC x10^3 (test code See_Comment [Auto mated = 1179829526) message] The s ystem which generated this result transmitted reference range : 10*3/?L. The reference range was not used to interpret this result as normal/abnormal . GRAN MAT (NEUT) % 78.5 % (test code = 770-8) IMM GRAN % (test code 0.20 % = 7509735197) LYMPH % (test code = 11.6 % 736-9) MONO % (test code = 8.4 % 5905-5) EOS % (test code = 1.1 % 713-8) BASO % (test code = 0.2 % 706-2) GRAN MAT x10^3(ANC) 3.45 10*3/uL 1.88-7.09 (test code = 8741426250) IMM GRAN x10^3 (test 0-0.06 code = 9278423648) LYMPH x10^3 (test code 0.51 10*3/uL 1.32-3.29 L = 731-0) MONO x10^3 (test code 0.37 10*3/uL 0.33-0.92 = 742-7) EOS x10^3 (test code = 0.05 10*3/uL 0.03-0.39 711-2) BASO x10^3 (test code 0.01-0.07 = 704-7) Lab Interpretation Abnormal (test code = 73264-3) [facility] Coronavirus 2019 Hcaugyq1297-90-05 18:08:00 Test Item Value Reference Range Interpretation [...] det ection of nucleic acids f rom kqeUHCT-PpS-4 v irus and diagnosis of SA RS-CoV-2 virusinfection. It is an Emergency Use Authorization ( EUA) testauthorized by the U.S. FDA. BASIC METABOLIC [id number] 09:37:00 Test Item Value Reference Range Interpretation [...] = 9.0 mg/dL 8.0-10.5 N CA) PROTHROMBIN [id number] 09:32:00 Test Item Value Reference Range Interpretation [...] prevent systemic emboli sm), Valvular heart disease, Atria l Fibrillation, Bileaflet mecha nical valve in aortic position.2. Mec hanical prosthetic valv es (high risk), 2. 5 - 3.5 Presence of Lup us Anticoagulant o r Antiphospholipi d Antibodies, Pre vention of systemic emb olism - Acute Myocardia l Infarction (to prevent recurrent infar ct). 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[facility] - XR CHEST 1 [id number] 00:00:00 [facility] 1955 Sex: F FAX: Carmenza Kelly DO [phone] [place]: St: ADM FAX: Mike Scales MD [phone] FAX: Bahman Chopra [phone] Name: LIO WATTS [facility] : 1955 Age/S: 66/F [address] [place] [address] Unit #: [id number] Loc: [place] [address] Phys: Bahman ChopraP Acct: [id number] Dis Date: Status: ADM IN PHONE #: [phone] Exam Date: 06/17/2021 1320 FAX #: [phone] Reason: WATCHMAN EXAMS: CPT CODE: [id number] XR CHEST 1 V 09994 PROCEDURE INFORMATION: Exam: XR Chest Exam date [...] scarring. There is no consolidation. Technically limited assess ment of the lateral left base. Nodular opacities [...] Chopra Technologist: RT Taylor(R) Trnscrd Date/Time/By: 06/17/2021 (5622) : By: Susanna Orig Print D/T: S: 06/17/2021 (5554) PAGE 1 Signed ReportCOVID 19 Asymptomatic IH [id number] 12:29:00 Test Item Value Reference Range Interpretation [...] high or waivedcomplexit y tests. BASIC METABOLIC [id number] 11:37:00 Test Item Value Reference Range Interpretation [...] code = 9.0 mg/dL 8.0-10.5 N CA) TGECPYULMZ0764-87-40 11:37:00 Test Item Value Reference Range Interpretation Comments PREALBUMIN (test code = PREALB) 24.3 mg/dL 16.0-40.0 N PROTHROMBIN [id number] 11:03:00 Test Item Value Reference Range Interpretation [...] (to prevent recurrent infar ct). CBC W/AUTO PDAA4564-23-51 10:59:00 Test Item Value Reference Range Interpretation [...] 0.0-0.1 N NRBC#) - XR CHEST 2 [id number] 00:00:00 [facility] : 1955 Sex: F FAX: Carmenza Kelly DO [phone] [place]: St: PRE FAX: Mike Scales MD [phone] Name: LIO WATTS : 1955 Age/S: 66/F [address] [place] [address] Unit #: [id number] Loc: [place] [address] Phys: Mike Lund MD Acct: [id number] Dis Date: Status: PRE SDC PHONE #: [phone] Exam Date: 06/16/2021 1120 FAX #: [phone] Reason: PREOP EXAMS: CPT CODE: [id number] XR CHEST 2 V 12933 PROCEDURE INFORMATION: Exam: XR Chest Exam date [...] Technologist: Danielle Nix RT(R) Trnscrd Date/Time/By: 06/16/2021 (3652) : By: [email or web address] Orig Print D/T: S: 06/16/2021 (6685) PAGE 1 Signed ReportGastrointestinal vfcuz5354-26-01 04:35:05 Test Item Value Reference Interpretation Comments [...] Rotavirus PCR (test Not Detected code = 2081592) Salmonella PCR (test Not Detected code = [...] code = 7124) [facility] jcpfgks7849-25-93 19:30:47 Test Item Value Reference Range Interpretation Comments Case number (test [id number] code = 5200410) Surgical pathology See link below for PDF report (test code = Lab Report 2255) Result status (test This is Supplemental code = 1291104) Report for [id number] [facility]EciyvkatXJLVGWCNNH8310-06-84 16:31:00 Test Item Value Reference Range Interpretation Comments POC Activated Clotting Time (test code 153 s = POC Activated Clotting Time) [facility] TomballZedcmcbCLUGZIOCDN4322-71-84 16:31:00 Test Item Value Reference Range Interpretation Comments POC Activated Clotting Time (test code 153 s = POC Activated Clotting Time) [facility] TomballGijltmsUQOLYBXZZD6943-78-01 16:31:00 Test Item Value Reference Range Interpretation Comments POC Activated Clotting Time (test code 153 s = POC Activated Clotting Time) [facility] TomballTtrfqrkWEVRIAQPVS3615-00-28 16:31:00 Test Item Value Reference Range Interpretation Comments POC Activated Clotting Time (test code 153 s = POC Activated Clotting Time) [facility] TomballForlnepCVYMZDNWGI2980-22-69 16:31:00 Test Item Value Reference Range Interpretation Comments POC Activated Clotting Time (test code 153 s = POC Activated Clotting Time) [facility] TomballTkseyocPTZQRVWGMD6779-16-98 16:31:00 Test Item Value Reference Range Interpretation Comments POC Activated Clotting Time (test code 153 s = POC Activated Clotting Time) [facility] TomballSuzibzrHJMTJJFMPW2127-22-16 16:31:00 Test Item Value Reference Range Interpretation Comments POC Activated Clotting Time (test code 153 s = POC Activated Clotting Time) [facility] TomballUdnjogiQQLWJESLHQ7781-05-46 14:37:00 Test Item Value Reference Range Interpretation Comments POC Activated Clotting Time (test code 454 s = POC Activated Clotting Time) [facility] TomballBlhygciVKFVXRMVMN9732-76-65 14:37:00 Test Item Value Reference Range Interpretation Comments POC Activated Clotting Time (test code 454 s = POC Activated Clotting Time) [facility] TomballCyonyhaPHWPQFHPDV3804-40-25 14:37:00 Test Item Value Reference Range Interpretation Comments POC Activated Clotting Time (test code 454 s = POC Activated Clotting Time) [facility] TomballTdetrzfDVHHWDVQOQ9158-89-58 14:37:00 Test Item Value Reference Range Interpretation Comments POC Activated Clotting Time (test code 454 s = POC Activated Clotting Time) [facility] TomballSsmlietTUZHEZUJTI7721-31-98 14:37:00 Test Item Value Reference Range Interpretation Comments POC Activated Clotting Time (test code 454 s = POC Activated Clotting Time) [facility] TomballBpvilkhWIEQHPUUVK8703-92-29 14:37:00 Test Item Value Reference Range Interpretation Comments POC Activated Clotting Time (test code 454 s = POC Activated Clotting Time) [facility] TomballGwsjqwtDAMJPJNAVL3491-12-54 14:37:00 Test Item Value Reference Range Interpretation Comments POC Activated Clotting Time (test code 454 s = POC Activated Clotting Time) [facility] TomballFuopfmsNWDOAQAVYX8004-33-23 14:13:00 Test Item Value Reference Range Interpretation Comments POC Activated Clotting Time (test code 354 s = POC Activated Clotting Time) [facility] TomballHsdkgkuWSYUFJFWUE4175-21-67 14:13:00 Test Item Value Reference Range Interpretation Comments POC Activated Clotting Time (test code 354 s = POC Activated Clotting Time) [facility] TomballPkqqznjQRUPTELMIU7117-01-96 14:13:00 Test Item Value Reference Range Interpretation Comments POC Activated Clotting Time (test code 354 s = POC Activated Clotting Time) [place] 559911-04-09 14:13:00 Test Item Value Reference Range Interpretation Comments POC Activated Clotting Time (test code 354 s = POC Activated Clotting Time) [facility]PhqupqnQBEVFKTWTA0000-47-50 14:13:00 Test Item Value Reference Range Interpretation Comments POC Activated Clotting Time (test code 354 s = POC Activated Clotting Time) [facility]RvuwjbaFRDHJWEVCP3726-15-30 14:13:00 Test Item Value Reference Range Interpretation Comments POC Activated Clotting Time (test code 354 s = POC Activated Clotting Time) [facility] CenterLchvriyTPTNQYBKWH9763-73-63 14:13:00 Test Item Value Reference Range Interpretation Comments POC Activated Clotting Time (test code 354 s = POC Activated Clotting Time) [facility] BANK WTGBIED2233-46-35 10:37:00Negative (08/29/20 5:37 AM) [facility] HermannCHEM BSSWE3047-94-16 10:37:30275Hbvkcpir HermannCHEM PANEL 2020-08-29 10:37:0028[facility] HermannCHEM AEFDV4227-23-62 10:37:001.01[facility] HermannCHEM GZETO7032-10-72 10:37:80332Jgyjcbct HermannCHEM GSNCW5495-52-97 10:37:003.8[facility] HermannCHEM IXIZV8425-90-56 10:37:47846Tyabxnir HermannCHEM MREIK1635-23-15 10:37:0028[facility] HermannCHEM NAKAI3926-95-20 10:37:009.8 [facility] HermannCHEM UMNTO9107-92-12 10:37:0011.8[facility] HermannCHEM PANEL 2020-08-29 10:37:0059[facility] HermannCHEM GWMWS0033-66-28 10:37:002.9[facility] SlorvxbTANXRBIFEB9354-71-54 10:37:006.8[facility] XzrjhpdOCJJQZCBQL4249-57-01 10:37:004.47[facility] BddolrsKAJSOYOKCB5768-44-82 10:37:0010.6[facility] Marty AMZWHYIDQF4880-23-96 10:37:0034.0[facility] EpykfwfFYDRQYRILS7269-49-69 10:37:00 76.1[facility] GsjpiywRPOSGUWKOO7712-65-38 10:37:00 Test Item Value Reference Range Interpretation Comments MCH (test code = MCH) 23.8 pg 27.0-31.0 [facility] RrowwgbNXTFHSKMIQ1579-88-27 10:37:0031.3[facility] HermannHEMATOLOGY 2020-08-29 10:37:0018.2[facility] GpelkmrENKHLMLSYC0162-28-95 10:37:84642Kjuzwdso ZmhxfhkNNACYVEAKC7689-46-82 10:37:007.5[facility] CkjtwlcWBKCJOMJKJ9953-30-99 10:37:00 Test Item Value Reference Range Interpretation Comments PT (test code = PT) 12.8 s 12.0-14.7 [facility] ZeutailLHARITRJUS0623-61-46 10:37:00 Test Item Value Reference Range Interpretation Comments INR (test code = INR) 0.97 1 0.85-1.17 [facility] BkudfhmOUGXVBGFTS5959-07-93 10:37:00 Test Item Value Reference Range Interpretation Comments PTT (test code = PTT) 25.0 s 22.9-35.8 Memorial JzcvqxmIXCEPCCVKV3727-91-14 10:37:0070.5[facility] HermannHEMATOLOGY 2020-08-29 10:37:0018.8[facility] LyarspyMGZDTYNCWD9498-26-48 10:37:009.5[facility] DqzkyauNSXRPUBFAL8038-16-77 10:37:000.9[facility] YajjycgONURMTEIRT8436-18-14 10:37:000.3[facility] SjndaoqASXDYNEFBI6077-13-93 10:37:004.8[facility] WKIOJVRARP6852-70-47 10:37:001.3[facility] LanauekPKCTNFFXHP3010-81-94 10:37:000.6 [facility] YietqxqQCIHGDQMNJ3332-98-61 10:37:000.1[facility] HermannHEMATOLOGY 2020-08-29 10:37:001+ *ABN*(08/29/20 5:37 AM)[facility] LgvhcixIOZYLTSYZV2195-34-33 10:37:00Not Detected (08/29/20 5:37 AM)[facility] HermannBLOOD BANK RESULTS 2020-08-29 10:37:00Negative (08/29/20 5:37 AM)[facility] HermannCHEM PPANU3787-74-08 10:37:07362Prathhcn HermannCHEM WTIJF5508-55-81 10:37:0028[facility] HermannCHEM UQFBF7638-02-60 10:37:001.01[facility] HermannCHEM WSIQF0917-65-17 10:37:38532 [facility] HermannCHEM DAEII2132-46-05 10:37:003.8[facility] HermannCHEM PANEL 2020-08-29 10:37:67056Zpsmnrqg HermannCHEM EYDRV8083-67-41 10:37:0028[facility] HermannCHEM FVVMV9180-56-38 10:37:009.8[facility] HermannCHEM JEMDP6341-25-01 10:37:0011.8[facility] HermannCHEM LJZXD2696-40-20 10:37:0059[facility] HermannCHEM YARUV1787-59-31 10:37:002.9[facility] JmwfckiGNRIQTAOUJ9660-00-87 10:37:006.8 [facility] UixxjdhSPCPOVNVIQ1187-65-47 10:37:004.47[facility] HermannHEMATOLOGY 2020-08-29 10:37:0010.6[facility] AcgeslbKSVSMGZRVJ0447-63-02 10:37:0034.0[facility] LqzojqvBYBCCJXXXE6123-11-97 10:37:0076.1[facility] RvnelklISTTKPSPWV4984-85-80 10:37:00 Test Item Value Reference Range Interpretation Comments MCH (test code = MCH) 23.8 pg 27.0-31.0 [facility] VsjlkrpDCDOFIMMFY5343-45-86 10:37:0031.3[facility] HermannHEMATOLOGY 2020-08-29 10:37:0018.2[facility] RnvsirbAXLTAPKIZI6100-94-50 10:37:40514Vcsdxcfw YcwyanwLGFWAFOCBV6668-51-59 10:37:007.5[facility] ApvtpmqQRPAAHGSJO2805-49-74 10:37:00 Test Item Value Reference Range Interpretation Comments PT (test code = PT) 12.8 s 12.0-14.7 [facility] FplopweLJPUZRMRDG5533-83-06 10:37:00 Test Item Value Reference Range Interpretation Comments INR (test code = INR) 0.97 1 0.85-1.17 [facility] SslczxlDCIHWIFOAC4469-21-50 10:37:00 Test Item Value Reference Range Interpretation Comments PTT (test code = PTT) 25.0 s 22.9-35.8 [facility] LgrtwtaCMYTFMRVRG2251-18-92 10:37:0070.5[facility] HermannHEMATOLOGY 2020-08-29 10:37:0018.8[facility] BqwegwhYBTDPQZSSI4464-98-29 10:37:009.5[facility] UlaqtovRCFHQQTACU4390-46-48 10:37:000.9[facility] QyabngpIWOCJWULSK6734-11-71 10:37:000.3[facility] ShxnfihVTJKLNUTMQ9632-38-61 10:37:004.8[facility] FGKKOMHUVG4109-61-86 10:37:001.3[facility] YgwgpfkMAKDVIZZWB4685-02-33 10:37:000.6 [facility] TmvkvsqHIIVNJXZPV1532-85-37 10:37:000.1[facility] HermannHEMATOLOGY 2020-08-29 10:37:001+ *ABN*(08/29/20 5:37 AM)[facility] UzndkpdITIPGHMGCP6168-67-38 10:37:00Not Detected (08/29/20 5:37 AM)[facility] HermannBLOOD BANK RESULTS 2020-08-29 10:37:00Negative (08/29/20 5:37 AM)[facility] HermannCHEM XMYDN4623-31-39 10:37:15559Jseldfeh HermannCHEM YCSTH2107-91-04 10:37:0028[facility] HermannCHEM CRWIH7020-43-62 10:37:001.01[facility] HermannCHEM CEYHG2771-03-46 10:37:30944 [facility] HermannCHEM UATJD9425-19-58 10:37:003.8[facility] HermannCHEM PANEL 2020-08-29 10:37:55658Cebsttwg HermannCHEM WLBCQ9512-47-35 10:37:0028[facility] HermannCHEM QKYKI9918-73-04 10:37:009.8[facility] HermannCHEM WAIWL4108-66-11 10:37:0011.8[facility] HermannCHEM BOVWZ0707-26-36 10:37:0059[facility] HermannCHEM KBENL8069-57-86 10:37:002.9[facility] XrholptHWVOZQUEGL1961-47-78 10:37:006.8 [facility] HaftqepAWUIXEBBKE6884-31-70 10:37:004.47[facility] HermannHEMATOLOGY 2020-08-29 10:37:0010.6[facility] IcbnztcIZVSLHVUSW4104-63-99 10:37:0034.0[facility] NxrbwdiSEBOURFXFN1030-79-26 10:37:0076.1[facility] BmeeuxpOELDIOOFIX1132-66-11 10:37:00 Test Item Value Reference Range Interpretation Comments MCH (test code = MCH) 23.8 pg 27.0-31.0 [facility] EzzerlySYUQZEZZXA1705-52-11 10:37:0031.3[facility] HermannHEMATOLOGY 2020-08-29 10:37:0018.2[facility] JrgrhkmIKBNUGFGBH8604-92-35 10:37:71883Gmgebkgx LhhxxfuDRKTSWWCCV9665-93-87 10:37:007.5[facility] OyjjkdqHXFGBBNWCG8752-33-69 10:37:00 Test Item Value Reference Range Interpretation Comments PT (test code = PT) 12.8 s 12.0-14.7 [facility] MfddxbeNTCVJZRUZO7530-09-50 10:37:00 Test Item Value Reference Range Interpretation Comments INR (test code = INR) 0.97 1 0.85-1.17 [facility] EznwaqtSEROOMSVOZ1710-97-02 10:37:00 Test Item Value Reference Range Interpretation Comments PTT (test code = PTT) 25.0 s 22.9-35.8 [facility] PklzipwQBOLLPNVIJ9126-84-03 10:37:0070.5[facility] HermannHEMATOLOGY 2020-08-29 10:37:0018.8[facility] BshtketXFQFBUIETV8000-77-34 10:37:009.5[facility] ZmdhnepTQJZUAVWJU7009-54-96 10:37:000.9[facility] RfcvyzhGNOIGMYTHS1549-59-63 10:37:000.3[facility] QmpplkxOBYHWDERFG9699-66-71 10:37:004.8[facility] NILEZNEMMW4489-13-60 10:37:001.3[facility] WkvmfnnWNXUNIYPMK0261-81-53 10:37:000.6 [facility] FwyjpuvRFHSXVKKVC7006-22-15 10:37:000.1[facility] HermannHEMATOLOGY 2020-08-29 10:37:001+ *ABN*(08/29/20 5:37 AM)[facility] HhwhfqkAGGYFLLPRS1079-20-94 10:37:00Not Detected (08/29/20 5:37 AM)[facility] HermannBLOOD BANK RESULTS 2020-08-29 10:37:00Negative (08/29/20 5:37 AM)[facility] HermannCHEM TJEBW0560-34-29 10:37:10248Fmsskohv HermannCHEM DJTBF5291-57-48 10:37:0028[facility] HermannCHEM OMYXD4520-57-63 10:37:001.01[facility] HermannCHEM MDBWS3562-01-29 10:37:79211 [facility] HermannCHEM TXXRS5100-62-90 10:37:003.8[facility] HermannCHEM PANEL 2020-08-29 10:37:25250Wtxosgtb HermannCHEM JQAIP9289-31-47 10:37:0028[facility] HermannCHEM TQIVO5281-76-16 10:37:009.8[facility] HermannCHEM PORDU6913-96-60 10:37:0011.8[facility] HermannCHEM UYXGE4741-31-11 10:37:0059[facility] HermannCHEM QOGKT0486-51-18 10:37:002.9[facility] MxutwmwIFSUHUFBVT1362-04-59 10:37:006.8 [facility] QdbsbbhFNIMEHWFLP8845-80-94 10:37:004.47[facility] HermannHEMATOLOGY 2020-08-29 10:37:0010.6[facility] RiistjlGPVJEJCXDP1966-13-22 10:37:0034.0[facility] PdjhwyuXGPAOJRUHB7213-81-49 10:37:0076.1[facility] LvkntdvYGJWGQLFIF5871-29-01 10:37:00 Test Item Value Reference Range Interpretation Comments MCH (test code = MCH) 23.8 pg 27.0-31.0 [facility] DolpkqgPOPNYHMFGT4037-62-58 10:37:0031.3[facility] HermannHEMATOLOGY 2020-08-29 10:37:0018.2[facility] SbxkmdwAGHUALJPGZ0444-03-49 10:37:71746Zjhgeoru YmjcyyhPMQRMNUIEB2500-98-49 10:37:007.5[facility] QouyexjNENEHPIMCI4509-25-28 10:37:00 Test Item Value Reference Range Interpretation Comments PT (test code = PT) 12.8 s 12.0-14.7 [facility] HfdyitcZLKPYUHZQH9893-76-01 10:37:00 Test Item Value Reference Range Interpretation Comments INR (test code = INR) 0.97 1 0.85-1.17 [facility] UuehzefTFHFKBTGOD9131-33-29 10:37:00 Test Item Value Reference Range Interpretation Comments PTT (test code = PTT) 25.0 s 22.9-35.8 [facility] SyqefedZGKBLCWSKM6203-18-53 10:37:0070.5[facility] HermannHEMATOLOGY 2020-08-29 10:37:0018.8[facility] BhgyvqdOXTHWMIYOU2978-58-34 10:37:009.5[facility] FoqmkrlAHRAUXVRMB4842-90-61 10:37:000.9[facility] XbhfetnKMRPIPFTTB3614-70-70 10:37:000.3[facility] KssmfmyDXEDLICGEH5553-63-71 10:37:004.8[facility] [place] PPUSNNIECR5787-72-59 10:37:001.3[facility] JapmtrhSRXZGQEJCI1441-96-54 10:37:000.6 [facility] HdzvefgUWFWHGYEPU1265-43-24 10:37:000.1[facility]annHEMATOLOGY 2020-08-29 10:37:001+ *ABN*(08/29/20 5:37 AM)[facility] VyxibzfREGJQELQYU8904-06-21 10:37:00Not Detected (08/29/20 5:37 AM)[facility] RES[facility] 2020-08-29 10:37:00Negative (08/29/20 5:37 AM)[facility]annCHEM YYGSN2083-54-30 10:37:04711Wzqkvfzf HermannCHEM HBTXC7936-67-40 10:37:0028[facility]annCHEM FSOXN8152-54-26 10:37:001.01[facility]annCHEM SKXZK8670-34-22 10:37:53433 [facility]annCHE[facility] YEKRS4600-31-43 10:37:003.8[facility]annCHEM PANEL 2020-08-29 10:37:43833Trmnsdqz HermannCHEM MROLI1606-77-63 10:37:0028[facility]annCHEM TOZED1182-93-15 10:37:009.8[facility]annCHEM PPITT8431-75-85 10:37:0011.8[facility]annCHEM VPCVB9708-27-37 10:37:0059[facility]annCHEM UZIJY9416-96-47 10:37:002.9[facility] MgsdauxCTJCWNXTDT6196-51-20 10:37:006.8 [facility] HtrjbplKCEZRDRZJT3304-81-93 10:37:004.47[facility]annHEMATOLOGY 2020-08-29 10:37:0010.6[facility] LbpzfueFMCTNKDTGW6640-89-47 10:37:0034.0[facility] JuqknrkUBSLKMSDPP0442-91-18 10:37:0076.1[facility] OlulkvhDFMIFGUHVQ4893-65-50 10:37:00 Test Item Value Reference Range Interpretation Comments MCH (test code = MCH) 23.8 pg 27.0-31.0 [facility] LtwrvmgWWMXUJPWRO3517-98-34 10:37:0031.3[facility]annHEMATOLOGY 2020-08-29 10:37:0018.2[facility] CrwpmevNTSUMFBOLO5059-52-83 10:37:98857[place] KihckuuMAIOYIICPF4243-75-30 10:37:007.5[facility] DkceyvcWFYGYPUBDY9752-69-89 10:37:00 Test Item Value Reference Range Interpretation Comments PT (test code = PT) 12.8 s 12.0-14.7 [facility] VhtqjqoXLKEGCVFNK8912-21-65 10:37:00 Test Item Value Reference Range Interpretation Comments INR (test code = INR) 0.97 1 0.85-1.17 [facility] DvxopzaEQFZWCZDKT4993-67-17 10:37:00 Test Item Value Reference Range Interpretation Comments PTT (test code = PTT) 25.0 s 22.9-35.8 [facility] JvyqcykKYXFULSVZZ3024-66-82 10:37:0070.5[facility]annHEMATOLOGY 2020-08-29 10:37:0018.8[facility] ZuygilfATROMGJWPX2493-49-65 10:37:009.5[facility] VjknehaMCHPGEWROZ6634-08-78 10:37:000.9[facility] EtggbqxIIZFWEAXTX7096-04-48 10:37:000.3[facility] FljimcfPUPXEZOWRE7342-16-24 10:37:004.8[facility] [place] BHDQEUOGGN4189-29-34 10:37:001.3[facility] MnhmjxsSXKQMKNUAG4172-37-53 10:37:000.6 [facility] IgcogobAWGVLRUICR8154-22-55 10:37:000.1[facility]annHEMATOLOGY 2020-08-29 10:37:001+ *ABN*(08/29/20 5:37 AM)[facility] YihtrnlOKONMRZUIA1991-96-07 10:37:00Not Detected (08/29/20 5:37 AM)[facility]ann[facility]OD BANK RESULTS 2020-08-29 10:37:00Negative (08/29/20 5:37 AM)[facility] HermannCHEM EERPD1276-99-90 10:37:00454Hpzcpjja HermannCHEM TIRCQ4122-37-06 10:37:0028[facility] HermannCHEM VWBGD2428-80-15 10:37:001.01[facility] HermannCHEM KLEKO6181-56-96 10:37:13094 [facility]annCHEM FGRQI2880-80-61 10:37:003.8[facility] HermannCHEM PANEL 2020-08-29 10:37:48339Wpseoaqz HermannCHEM YFNGP4072-06-61 10:37:0028[facility] HermannCHEM BMVQY9933-06-35 10:37:009.8[facility] HermannCHEM EWWTT8285-04-08 10:37:0011.8[facility] HermannCHEM LUMCT5808-77-61 10:37:0059[facility]annCHEM WZBBB5959-59-94 10:37:002.9[facility] VphxvknZPQTYOJPXY8114-10-00 10:37:006.8 [facility] XoigqsdLKJJVBXIVS3207-49-79 10:37:004.47[facility]annHEMATOLOGY 2020-08-29 10:37:0010.6[facility] YvulzntZINGFGLMJK7848-53-90 10:37:0034.0[facility] EkczrfoXVNVBIBWUY9710-70-05 10:37:0076.1[facility] AjhtlqgGFGXQNBOAD4083-46-79 10:37:00 Test Item Value Reference Range Interpretation Comments MCH (test code = MCH) 23.8 pg 27.0-31.0 [facility] IvukzlhUZIDNQUXJF2882-64-70 10:37:0031.3[facility] HermannHEMATOLOGY 2020-08-29 10:37:0018.2[facility] YaqoqquMMTTGDNDHM7287-11-17 10:37:51703Liytblwq AcrfsnjJEKJNOYHNG2153-86-79 10:37:007.5[facility] NcxevlqQRSLXRYRDF7763-29-04 10:37:00 Test Item Value Reference Range Interpretation Comments PT (test code = PT) 12.8 s 12.0-14.7 [facility] WsbifldDSIOFCKMBL3967-96-22 10:37:00 Test Item Value Reference Range Interpretation Comments INR (test code = INR) 0.97 1 0.85-1.17 [facility] YegqphnKHLGGJKOFY9809-96-90 10:37:00 Test Item Value Reference Range Interpretation Comments PTT (test code = PTT) 25.0 s 22.9-35.8 [facility] SwxlwopLRFVQPNQWS6430-84-04 10:37:0070.5[facility]annHEMATOLOGY 2020-08-29 10:37:0018.8[facility] YtuaxkhBQYWUQBXTM7807-18-81 10:37:009.5[facility] BsgrklfZMGVOTGAND3644-65-53 10:37:000.9[facility] SkjwltsXETTUSFUFI3376-83-19 10:37:000.3[facility] RthqciiTYVJTQKXZG1338-62-52 10:37:004.8[facility] AGCUUVQDJP5540-41-33 10:37:001.3[facility] PdpkjjlNDULVEWBEQ1923-33-85 10:37:000.6 [facility] RwqerhyYFDYRZUABM2923-30-75 10:37:000.1[facility] HermannHEMATOLOGY 2020-08-29 10:37:001+ *ABN*(08/29/20 5:37 AM)[facility] VsamsvpWCALRMONAZ5254-01-51 10:37:00Not Detected (08/29/20 5:37 AM)[facility]annBLOOD BANK RESULTS 2020-08-29 10:37:00Negative (08/29/20 5:37 AM)[facility] HermannCHEM NWWQA4593-72-00 10:37:25374Gqfrcafw HermannCHEM YAOQU2048-62-16 10:37:0028[facility] HermannCHEM ZMRJW1118-98-83 10:37:001.01[facility] HermannCHEM ATERZ1091-69-79 10:37:36088 [facility]annCHEM KVJVH9627-75-96 10:37:003.8[facility] HermannCHEM PANEL 2020-08-29 10:37:10586Bluwhamf HermannCHEM KLWTJ6993-33-47 10:37:0028[facility] HermannCHEM NZACL6143-13-99 10:37:009.8[facility] HermannCHEM OCZRI7729-79-53 10:37:0011.8[facility] HermannCHEM VDRFD4643-65-53 10:37:0059[facility] HermannCHEM UQWGI1935-86-92 10:37:002.9[facility] VegsryaFKUGORDXHD9541-64-00 10:37:006.8 [facility] NoiyvypUFRNGIABKT8162-59-15 10:37:004.47[facility] HermannHEMATOLOGY 2020-08-29 10:37:0010.6[facility] JqxneleLOHDCVAKRW8062-19-38 10:37:0034.0[facility] IvjlxuqAILVQFMKXS7396-92-37 10:37:0076.1[facility] TpdrhytPNFANSCVRC2606-31-81 10:37:00 Test Item Value Reference Range Interpretation Comments MCH (test code = MCH) 23.8 pg 27.0-31.0 [facility] VutrewuQIJXMHGSFT1092-18-32 10:37:0031.3[facility] HermannHEMATOLOGY 2020-08-29 10:37:0018.2[facility] CaoefwfFJTZGMYDHL0486-07-89 10:37:69734Mlhvhubm QloqampAGVNSLXUYQ5972-74-69 10:37:007.5[facility] MewgdzwIUBSZULNTF3817-38-62 10:37:00 Test Item Value Reference Range Interpretation Comments PT (test code = PT) 12.8 s 12.0-14.7 [facility] CgkggwaELHKVMXDJU8534-55-88 10:37:00 Test Item Value Reference Range Interpretation Comments INR (test code = INR) 0.97 1 0.85-1.17 [facility] HxuvtdsXMFOZJVHJF4609-52-14 10:37:00 Test Item Value Reference Range Interpretation Comments PTT (test code = PTT) 25.0 s 22.9-35.8 [facility] IgbsriuOAZVEBHLHT8899-26-36 10:37:0070.5[facility] HermannHEMATOLOGY 2020-08-29 10:37:0018.8[facility] GipumdhKXEYVCRJWO8955-03-95 10:37:009.5[facility] SxoyaeuPFMXNUJPAF1588-19-86 10:37:000.9[facility] WrpfnplNKHBJPNNJM6970-87-43 10:37:000.3[facility] PwpplacLVHFDKLKLE3922-71-44 10:37:004.8[facility] [place] UQKCFHHNDX6368-56-26 10:37:001.3[facility] AmrizewHTEFAGWTGS9270-49-32 10:37:000.6 [facility] CowkmsvRQHTYZQHIC9373-22-54 10:37:000.1[facility] HermannHEMATOLOGY 2020-08-29 10:37:001+ *ABN*(08/29/20 5:37 AM)[facility]IYUTTVSGK9121-33-24 10:37:00Not Detected (08/29/20 5:37 AM)[facility] MartyMARICELAMYDIA, GC, TV,PCR, IN NWCOM8531-17-79 15:38:00 Test Item Value Reference Range Interpretation Comments FT (test code = CHTR) Not detected (qualifier Not Detected N value) FT (test code = Not detected (qualifier Not Detected N NGONO) value) FT (test code = TRVG) Not detected (qualifier Not Detected N value) [facility] NRECHHILQVR1005-05-48 10:57:00 Test Item Value Reference Range Interpretation Comments Color (test code = UCOLR) Dk. Yellow Clarity (test code = UCLAR) Hazy Glucose (test code = UGLUC) NEGATIVE NEGATIVE N Bilirubin (test code = UBILI) NEGATIVE NEGATIVE N Ketones (test code = UKET) NEGATIVE NEGATIVE N Specific Collins (test code = 1.025 1.005-1.030 A USPGR) [...] = None Seen None Seen N URCRYS) [facility]"
[2022-04-21] MEDS ORDERED: PROMETHAZINE INJ 25 MG/ML AMP ONE (04:56)
[2022-04-21] MEDS ORDERED: MORPHINE 2 MG/ML SYR ONE (04:56)
[2022-04-21] MEDS ORDERED: MORPHINE 4 MG/ML SYR ONE (04:56)
[2022-04-21] MEDS ORDERED: CEPHALEXIN 250 MG CAP ONE (04:57)
[2022-04-21] MEDS ORDERED: Mastisol Adhesive Liq ONE (04:57)
--- NOTE | 2022-04-21 05:12 | ER ---
Nurse's Notes [facility] Name: Marjan Kolb Age: 67 yrs Sex: Female : 1955 Arrival Date: 04/21/2022 Time: 04:07 Bed 7 Private MD: Diagnosis: Fall on same level, unspecified;Laceration without foreign body of right forearm-8 cm , skin tears;Essential (primary) hypertension Presentation: 04/21 04:23 Chief complaint: Patient states: "I was going to the bathroom when I fell. I tried to tw5 grab the door knobs.". Care prior to arrival: None. Mechanism of Injury: Fall from standing position. Trauma event details: Injury occurred in the [facility], Injury occurred: at home. Injury occurred: April 21, 2022 Injury occurred at: 03:45. 04:23 Acuity: BLAYNE 3 tw5 04:23 Method Of Arrival: Wheelchair tw5 04:27 Coronavirus screen: Vaccine status: Patient reports being unvaccinated. Ebola Screen: tw5 Patient negative for fever greater than or equal to 101.5 degrees Fahrenheit, and additional compatible Ebola Virus Disease symptoms Patient denies exposure to infectious person. Patient denies travel to an Ebola-affected area in the 21 days before illness onset. Initial Sepsis Screen: Does the patient meet any 2 criteria? No. Patient's initial sepsis screen is negative. Does the patient have a suspected source of infection? No. Patient's initial sepsis screen is negative. Risk Assessment: Do you want to hurt yourself or someone else? Patient reports no desire to harm self or others. Onset of symptoms was April 21, 2022 at 03:45. Trauma Activation: Physician: ED Physician; Name: Cortes; Notified At: 04:10; Arrived At: 04:10 Physician: General Surgeon; Name: ; Notified At: 04:10; Arrived At: Physician: Radiology; Name: Moris; Notified At: 04:10; Arrived At: Physician: Respiratory; Name: ; Notified At: 04:10; Arrived At: Physician: Lab; Name: ; Notified At: 04:10; Arrived At: Historical: - Allergies: 04:27 Bactrim DS; tw 04:27 butorphanol tartrate; tw 04:27 Fentanyl; tw 04:27 Reglan; tw 04:27 Stadol; 04:27 sulfamethoxazole (bulk); 04:27 TRIMETHOPRIM; tw5 - PMHx: 04:27 Anxiety; Atrial Fib; Bipolar disorder; Chronic pain; COPD; esophageal varices; tw5 Hepatitis; HIV; Hypertension; Migraines; Panic Attacks; - PSHx: 04:27 Appendectomy; Bilateral shoulder repair; Cholecystectomy; hernia repair; R wrist SX; tw5 - Immunization history: Last tetanus immunization: - up to date. - Social history:: Smoking status: unknown. Screenin:23 Abuse screen: Denies threats or abuse. Denies injuries from another. Tuberculosis tw5 screening: No symptoms or risk factors identified. 05:24 Nutritional screening: No deficits noted. Fall Risk Fall in past 12 months (25 points). as6 Primary Survey: 04:23 NO uncontrolled hemorrhage observed. A: The client is awake and alert. The airway is tw5 patent. Breathing/Chest: Spontaneous respiratory effort, equal unlabored respirations, breath sounds clear bilaterally, regular pattern, symmetrical chest rise and fall. Circulation: No external hemorrhage present. Regular and strong central pulse, skin warm/dry/normal color. Disability Pupils are equal, round, reactive to light and accommodation. Exposure/Environment: All clothing and personal items were removed. Forensic evidence collection is not deemed to be indicated at this time. Items placed in patient belonging bag. There is evidence of uncontrolled external hemorrhage. Provider notified immediately. Methods to control bleeding applied. Obvious injury(ies) are noted at this time: Skin to to right forarm A warming method has been applied: A warm blanket has been provided to the patient. Reassessment Alertness and Airway: Awake and alert. The airway is patent. Breathing: Spontaneous respiratory effort, equal unlabored respirations, breath sounds clear bilaterally, regular pattern with symmetrical chest rise and fall. Circulation: No external hemorrhage noted. Regular and strong central pulse, skin warm/dry/normal color. Disability: Alert. Secondary Survey: 04:23 Gastrointestinal: No deficits noted. tw5 Assessment: 04:23 General: Appears uncomfortable, Behavior is calm, cooperative, appropriate for age. tw5 Pain: Pain currently is 10 out of 10 on a pain scale. Vital Signs: 04:23 BP 208 / 111; Pulse 55; Resp 18; Temp 98.1; Pulse Ox 98% ; Weight 76.2 kg; Height 5 ft. tw5 4 in. (162.56 cm); Pain 10/10; 04:23 Body Mass Index 28.84 (76.20 kg, 162.56 cm) tw5 [place] Coma Score: 04:23 Eye Response: spontaneous(4). Verbal Response: oriented(5). Motor Response: obeys tw5 commands(6). Total: 15. Trauma Score (Adult): 04:23 Eye Response: spontaneous(1); Verbal Response: oriented(1); Motor Response: obeys tw5 commands(2); Systolic BP: > 89 mm Hg(4); Respiratory Rate: 10 to 29 per min(4); [place] Score: 15; Trauma Score: 12 04:23 Eye Response: spontaneous(1); Verbal Response: oriented(1); Motor Response: obeys tw5 commands(2); Systolic BP: > 89 mm Hg(4); Respiratory Rate: 10 to 29 per min(4); [place] Score: 15; Trauma Score: 12 ED Course: 04:07 Patient arrived in ED. bp1 04:15 Justus Kolb MD is Attending Physician. thomas 04:15 Dayo Ko, ASHLEY is Primary Nurse. as6 04:23 Patient has correct armband on for positive identification. tw5 04:23 Patient maintains SpO2 saturation greater than 95% on room air. tw5 04:24 Triage completed. tw5 04:27 Arm band placed on. tw5 05:04 Hand Right 3 View XRAY In Process Unspecified. EDMS 05:04 Forearm Right XRAY In Process Unspecified. EDMS 05:12 Chance Rahman MD is Referral Physician. thomas 05:23 No provider procedures requiring assistance completed. Patient did not have IV access as6 during this emergency room visit. 05:23 Thermoregulation: warm blanket given to patient. as6 Administered Medications: 05:02 Drug: Mastisol Adhesive Dropperette 1 application Route: Topical; Site: affected area; as6 05:23 Follow up: Response: No adverse reaction as6 05:08 Drug: KeFLEX (cephalexin) 500 mg Route: PO; as6 05:23 Follow up: Response: No adverse reaction as6 05:09 Drug: morphine 10 mg Route: IM; Site: right ventrogluteal; as6 05:23 Follow up: Response: No adverse reaction as6 05:09 Drug: Phenergan (promethazine) 12.5 mg Route: IM; Site: right deltoid; as6 05:23 Follow up: Response: No adverse reaction as6 Medication: 05:23 VIS not applicable for this client. as6 Intake: 05:24 PO: 100ml (Water); Total: 100ml. as6 Outcome: 05:12 Discharge ordered by . thomas 05:23 Discharged to home via wheelchair, with family. as6 05:23 Condition: stable 05:23 Patient's length of stay was not longer than 2 hours. 05:24 Discharge instructions given to patient, Instructed on discharge instructions, follow as6 up and referral plans. medication usage, wound care, Demonstrated understanding of instructions, follow-up care, medications, wound care, Prescriptions given X 3. 05:24 Patient left the ED. as6 Signatures: Dispatcher [employer] EDJustus Perrin MD MD cha Paniauga, Brittany bp1 Wood, Tiffany tw5 Dayo Ko, RN RN as6
--- NOTE | 2022-04-21 05:12 | EDPHYS ---
Physician Documentation [facility] Name: Marjan Kolb Age: 67 yrs Sex: Female : 1955 Arrival Date: 04/21/2022 Time: 04:07 Bed 7 Private MD: SHEELA Physician Justus Kolb HPI: 04/21 04:41 This 67 yrs old Female presents to ER via Wheelchair with complaints of Fall thomas Injury. 04:41 Details of fall: The patient fell from an upright position, while walking. Onset: The thomas symptoms/episode began/occurred just prior to arrival. Associated injuries: The patient sustained right arm. Severity of symptoms: At their worst the symptoms were mild. The patient has not experienced similar symptoms in the past. Historical: - Allergies: 04:27 Bactrim DS; tw 04:27 butorphanol tartrate; tw 04:27 Fentanyl; tw5 04:27 Reglan; tw5 04:27 Stadol; tw 04:27 sulfamethoxazole (bulk); tw 04:27 TRIMETHOPRIM; tw5 - PMHx: 04:27 Anxiety; Atrial Fib; Bipolar disorder; Chronic pain; COPD; esophageal varices; tw5 Hepatitis; HIV; Hypertension; Migraines; Panic Attacks; - PSHx: 04:27 Appendectomy; Bilateral shoulder repair; Cholecystectomy; hernia repair; R wrist SX; tw5 - Immunization history: Last tetanus immunization: - up to date. - Social history:: Smoking status: unknown. ROS: 04:42 Constitutional: Negative for fever, chills, and weight loss, Eyes: Negative for injury, thomas pain, redness, and discharge, ENT: Negative for injury, pain, and discharge, Neck: Negative for injury, pain, and swelling, Cardiovascular: Negative for chest pain, palpitations, and edema, Respiratory: Negative for shortness of breath, cough, wheezing, and pleuritic chest pain, Abdomen/GI: Negative for abdominal pain, nausea, vomiting, diarrhea, and constipation, Back: Negative for injury and pain, : Negative for injury, bleeding, discharge, and swelling, Neuro: Negative for headache, weakness, numbness, tingling, and seizure, Psych: Negative for depression, anxiety, suicide ideation, homicidal ideation, and hallucinations, Allergy/Immunology: Negative for hives, rash, and allergies, Endocrine: Negative for neck swelling, polydipsia, polyuria, polyphagia, and marked weight changes, Hematologic/Lymphatic: Negative for swollen nodes, abnormal bleeding, and unusual bruising. 04:42 MS/extremity: Positive for decreased range of motion, pain, tenderness, of the dorsal aspect of right forearm, right wrist, right hand and palmar aspect of right forearm. Exam: 04:42 Constitutional: This is a well developed, well nourished patient who is awake, alert, thomas and in no acute distress. Head/Face: Normocephalic, atraumatic. Eyes: Pupils equal round and reactive to light, extra-ocular motions intact. Lids and lashes normal. Conjunctiva and sclera are non-icteric and not injected. Cornea within normal limits. Periorbital areas with no swelling, redness, or edema. ENT: Nares patent. No nasal discharge, no septal abnormalities noted. Tympanic membranes are normal and external auditory canals are clear. Oropharynx with no redness, swelling, or masses, exudates, or evidence of obstruction, uvula midline. Mucous membranes moist. Neck: Trachea midline, no thyromegaly or masses palpated, and no cervical lymphadenopathy. Supple, full range of motion without nuchal rigidity, or vertebral point tenderness. No Meningismus. Chest/axilla: Normal chest wall appearance and motion. Nontender with no deformity. No lesions are appreciated. Cardiovascular: Regular rate and rhythm with a normal S1 and S2. No gallops, murmurs, or rubs. Normal PMI, no JVD. No pulse deficits. Respiratory: Lungs have equal breath sounds bilaterally, clear to auscultation and percussion. No rales, rhonchi or wheezes noted. No increased work of breathing, no retractions or nasal flaring. Abdomen/GI: Soft, non-tender, with normal bowel sounds. No distension or tympany. No guarding or rebound. No evidence of tenderness throughout. Back: No spinal tenderness. No costovertebral tenderness. Full range of motion. Female : Normal external genitalia. Skin: Warm, dry with normal turgor. Normal color with no rashes, no lesions, and no evidence of cellulitis. Neuro: Awake and alert, GCS 15, oriented to person, place, time, and situation. Cranial nerves II-XII grossly intact. Motor strength 5/5 in all extremities. Sensory grossly intact. Cerebellar exam normal. Normal gait. Psych: Awake, alert, with orientation to person, place and time. Behavior, mood, and affect are within normal limits. 04:42 Musculoskeletal/extremity: ROM: full passive range of motion, limited active range of motion, Circulation is intact in all extremities. Sensation intact. 04:42 Skin: injury, laceration(s), that can be described as clean, irregular. Vital Signs: 04:23 BP 208 / 111; Pulse 55; Resp 18; Temp 98.1; Pulse Ox 98% ; Weight 76.2 kg; Height 5 ft. tw5 4 in. (162.56 cm); Pain 10/10; 04:23 Body Mass Index 28.84 (76.20 kg, 162.56 cm) tw5 [place] Coma Score: 04:23 Eye Response: spontaneous(4). Verbal Response: oriented(5). Motor Response: obeys tw5 commands(6). Total: 15. Trauma Score (Adult): 04:23 Eye Response: spontaneous(1); Verbal Response: oriented(1); Motor Response: obeys tw5 commands(2); Systolic BP: > 89 mm Hg(4); Respiratory Rate: 10 to 29 per min(4); [place] Score: 15; Trauma Score: 12 04:23 Eye Response: spontaneous(1); Verbal Response: oriented(1); Motor Response: obeys tw5 commands(2); Systolic BP: > 89 mm Hg(4); Respiratory Rate: 10 to 29 per min(4); [place] Score: 15; Trauma Score: 12 Laceration: 04:42 Wound Repair of 8cm ( 3.1in ) subcutaneous laceration to palmar aspect of right forearm thomas and dorsal aspect of right forearm. Irregularly shaped.. Skin/tissue flap noted.. Distal neuro/vascular/tendon intact. Anesthesia: Local anesthetic administered with 0 mls of none. Wound prep: Moderate cleansing with betadine by ct, Copious irrigation. Skin closed with 1-0 steri strips using steri strips. Dressed with non-adherent dressing. Patient tolerated well. MDM: 04:15 Patient medically screened. thomas 04:48 Differential diagnosis: closed fracture, contusion, abrasion. Differential diagnosis: thomas contusion, fracture, laceration. Data reviewed: vital signs, nurses notes, radiologic studies, plain films. Data interpreted: quality assurance monitor final: not applicable for this patient encounter. rate is 55 beats/min, rhythm is regular, Pulse oximetry: on room air is 98 %. Test interpretation: by ED physician or midlevel provider: plain radiologic studies. Counseling: I had a detailed discussion with the patient and/or guardian regarding: the historical points, exam findings, and any diagnostic results supporting the discharge/admit diagnosis, radiology results, the need for outpatient follow up, for definitive care, a family practitioner. 04/21 04:41 Order name: Hand Right 3 View XRAY [facility] 04/21 04:41 Order name: Forearm Right XRAY [facility] 04/21 04:41 Order name: Dressing - Wound; Complete Time: 05:[address] [facility] 04/21 04:41 Order name: Gloves, Sterile; Complete Time: 05:[address] [facility] 04/21 04:41 Order name: Setup Suture Tray; Complete Time: 04:51 thomas Administered Medications: 05:02 Drug: Mastisol Adhesive Dropperette 1 application Route: Topical; Site: affected area; as6 05:23 Follow up: Response: No adverse reaction as6 05:08 Drug: KeFLEX (cephalexin) 500 mg Route: PO; as6 05:23 Follow up: Response: No adverse reaction as6 05:09 Drug: morphine 10 mg Route: IM; Site: right ventrogluteal; as6 05:23 Follow up: Response: No adverse reaction as6 05:09 Drug: Phenergan (promethazine) 12.5 mg Route: IM; Site: right deltoid; as6 05:23 Follow up: Response: No adverse reaction as6 Disposition Summary: 04/21/22 05:12 Discharge Ordered Location: Home thomas Problem: new thomas Symptoms: have improved thomas Condition: Stable thomas Diagnosis - Fall on same level, unspecified thomas - Laceration without foreign body of right forearm - 8 cm , skin tears thomas - Essential (primary) hypertension thomas Followup: thomas - With: Private Physician - When: 2 - 3 days - Reason: Recheck today's complaints, Continuance of care, Re-evaluation by your physician Followup: thomas - With: - When: 2 - 3 days - Reason: Wound Recheck, Recheck today's complaints, Re-evaluation by your physician Discharge Instructions: - Discharge Summary Sheet thomas - Fall Prevention in the Home, Adult thomas - Hypertension, Adult thomas - Laceration Care, Adult thomas - Hypertension, Adult, Pohx-ta-Lwtd thomas - Laceration Care, Adult, Uvgl-us-Gmbi thomas - How to Take Your Blood Pressure, Lpdo-ew-Nxwf thomas - Managing Your Hypertension thomas Forms: - Medication Reconciliation Form thomas - Thank You Letter thomas - Antibiotic Education thomas - Prescription Opioid Use thomas Prescriptions: - Cephalexin 500 mg Oral Capsule - take 1 capsule by ORAL route every 6 hours for 7 days; 28 capsule; Refills: 0, [facility] Product Selection Permitted - Tylenol-Codeine #3 300 mg-30 mg Oral - take 2 tablet by ORAL route every 6 hours; 15 tablet; Refills: 0, Product [facility] Selection Permitted - Zofran 4 mg Oral Tablet - take 1 tablet by ORAL route every 12 hours As needed; 20 tablet; Refills: 0, [facility] Product Selection Permitted Signatures: Dispatcher [employer] Justus Long MD MD cha Wood, Tiffany tw5 Dayo Ko RN RN as6
[2022-04-21 05:30] VITALS: BP 208/111; TEMP 98.1; O2SAT 98
--- NOTE | 2022-04-21 14:15 | RAD REPORT ---
EXAM DESCRIPTION: RAD - Forearm Right - 04/21/2022 5:03 am CLINICAL HISTORY: The patient is 67 years old and is Female; PAIN TECHNIQUE: Two views of the right forearm. COMPARISON: No relevant prior studies available. FINDINGS: Bones/joints: Ulnar styloid fracture, age undetermined. Previous ORIF distal radius. No dislocation. Soft tissues: Soft tissue swelling at the wrist. IMPRESSION: Ulnar styloid fracture, age undetermined. Previous ORIF distal radius. Electronically signed by: Leyda Velazquez MD 04/21/2022 6:31 AM APPAREL PATTERNMAKER Due to temporary technical issues with the PACS/Fluency reporting system, reports are being signed by the in house radiologists without review as a courtesy to insure prompt reporting. The interpreting radiologist is fully responsible for the content of the report.
--- NOTE | 2022-04-21 14:58 | RAD REPORT ---
EXAM DESCRIPTION: RAD - Hand Right 3 View - 04/21/2022 5:03 am TECHNIQUE: Right hand radiographs, PA, lateral, and oblique views. CLINICAL HISTORY: Pain COMPARISON: None . FINDINGS: There is osteopenia. There are diffuse osteoarthritic changes, with joint space narrowing and osteophyte formation. No radiopaque foreign body. There is hardware in the distal radius. No acute fracture or dislocation. IMPRESSION: No acute osseous abnormality . Electronically signed by: Destiny Garcia MD 04/21/2022 6:38 AM DIRECTOR TRANSLATION Due to temporary technical issues with the PACS/Fluency reporting system, reports are being signed by the in house radiologists without review as a courtesy to insure prompt reporting. The interpreting radiologist is fully responsible for the content of the report.
== END 2022-04-21 05:24 | disposition home or self-care (01) ==
LOC: ER 04:04 → SUPCPDRO 04:04 → ER 05:24
PROC: 0JQH0ZZ Repair Left Lower Arm Subcutaneous Tissue and Fascia, Open Approach (ICD-10-PCS; principal; 2022-04-21)
DX: S51.811A Laceration without foreign body of right forearm, initial encounter (principal); I10 Essential (primary) hypertension; W18.30XA Fall on same level, unspecified, initial encounter; Z21 Asymptomatic human immunodeficiency virus [HIV] infection status
CPT/HCPCS: 73130; 73090; 96372; 99284; 12004; J2550; J2270

== ENCOUNTER 2022-04-21 21:58 | Emergency (ER) | payer OTHER ==
--- OUTSIDE RECORDS SUMMARY | 2022-04-21 22:17 | XMS REPORT | Continuity of Care Document ---
:1955 Author Organization [facility] t Address [address] [place] [address] Care Team Providers Name Role Phone Urmila [...] Tomy Hudson MD Attending Clinician Doctor Unassigned, [place] Attending Clinician Unavailable Bill GUO Attending Clinician Unavailable Bill Rose Attending Clinician CHARITY MCALLISTER Attending Clinician Unavailable Charity Mcallister MD Attending Clinician GADIEL KOEHLER Attending Clinician Unavailable Mike Lund Attending Clinician Unavailable NIKOLAI REEVES Attending Clinician Unavailable Eliseo Arce MD Attending Clinician Carol Ann DRAFTER REFRIGERATION, Sarai Lieberman Attending Clinician [phone] Ashly Pelletier MA Attending Clinician Unavailable Dagoberto Bass MD Attending Clinician [place] Evangelista Attending Clinician Lab, Adc [facility] Attending Clinician Unavailable Monica Rodas [...] Attending Clinician Unavailable Leyda Willis Attending Clinician [phone] Stefanie Montalvo RN Attending Clinician Unavailable TOMY HUDSON Admitting Clinician Unavailable Tomy Hudson MD Admitting Clinician Bill GUO Admitting Clinician Unavailable Lele Rahman Admitting Clinician Unavailable Mike Lund Admitting Clinician Unavailable ELISEO ARCE Admitting Clinician Unavailable DO PORSHA STREETER Admitting Clinician Unavailable Payers Payer Name Policy Type Policy Number Effective Date Expiration Date S gabino [facility] [id number] 2012 STAR PLUS OON 00:00:00 [facility] [id number] 2019 DUAL COMPLETE HMO 00:00:00 [facility] [id number] 2019 PLUS 00:00:00 MEDICAID [facility] [id number] 2020 00:00:00 [employer] [facility] [id number] 2019 HEALTH [facility] 00:00:00 [employer] MEDICARE ADV [id number] 2019 2019 00:00:00 00:00:00 Problems Condition Condition Condition Status Onset Resolution Last Treating Co mments Source Name Details Category Date Date Treatment Clinician Date Dyspnea, Dyspnea, Disease Active Unive rs unspecifie unspecifie 02-11 it y of d type d type 00:00: [address] Gastropare Gastropare Disease Active Overview : Methodi sis sis 4-[address] 00:00: [facility] 00 note l might be different from the original. Added automatic ally from request for surgery [id number] Dysphagia Dysphagia Disease Active Overview: Methodi 4-[address] 00:00: [facility] 00 note l might be different from the original. Added automatic ally from request for surgery [id number] CCL / EPS CCL / EPS Diagnosis Active 2020-10-15 Memoria PVI PVI 08-19 17:07:00 l ABLATION ABLATION 00:00: Patel n W/ CARTO / W/ CARTO / 00 GA / T GA / T Active 08/19/[facility] Food Food Disease Active 2019-05 [...] (BMI 2-19 ity of 30-39.9) 30-39.9) 00:00: [place] [facility] Anemia Anemia Disease Active 2014-05 Univers 0-03 ity of 00:00: [place] [facility] Hypovolemi Hypovolemi Disease Active 2014-05 U nivers a due to a due to 0-02 ity of hemorrhage hemorrhage 00:00: [place] [facility] Chest pain Chest pain Disease Active 2014-05 U nivers 0-02 ity of 00:00: [place] [facility] 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:00: [place] shoulder shoulder 00 Medica l arthroplas arthroplas Br anch ty ty Posttrauma Posttrauma Disease Active U nivers tic stress tic stress 08 it y of disorder disorder 00:00: [place] [facility] 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 00:00: [place] virus virus 00 Medical (HIV) (HIV) Branch disease disease Bipolar 2 Bipolar 2 Disease Active Uni vers disorder disorder 11-18 ity of 00:00: [place] [facility] Chronic Chronic Disease Active Univers hepatitis hepatitis 11-18 ity of C C 00:00: [place] [facility] Hypertensi Hypertensi Disease Active U nivers on on 11-18 ity of 00:00: [place] [facility] Allergies, Adverse Reactions, Alerts Allergy Allergy Status Severity Reaction(s) Onset Inactive Treating Comm ents Source Name Type Date Date Clinician sulfamet DA Active SV N/V [facility] hoxazole 1-25 Clear 00:00: Garcia [address] [facility] trimetho DA Active SV [facility] prim 1-25 Clear 00:00: Garcia [address] [facility] codeine DA Active SV N/V [facility] 1-25 Clear 00:00: Garcia [address] [facility] Metoclop Propensi Active [place] ramide ty [...] Date Stop Date Source Natural father Diabetes [facility] Natural father Other - see comments [facility] Natural [facility] Natural father Hypertension [facility] Natural father [facility] Natural mother [facility] Social History Social Habit Start Date Stop Date Quantity Comments Source History SDOH Religious Alcohol Frequency Hospita l History SDOH Religious Alcohol Std Drinks Hospit al History SDMT Religious Alcohol [facility] Tobacco use and 2022-02-11 2022-02-11 Former smokeless Uni versity of exposure 00:00:00 00:00:00 tobacco user [facility] [place] Tobacco Comment 2022-02-11 2022-02-11 Smokes approx 1-2 Un iversity of 00:00:00 00:00:00 cigarettes per [facility] porfirio day when she Branch smokes Exposure to 2022-01-31 2022-02-10 Not sure [facility]-CoV-2 (event) 00:00:00 22:53:00 [facility] Alcohol intake 2020-12-08 2020-12-08 Current drinker [facility]o dist 00:00:00 00:00:00 of [facility] (finding) Cigarettes smoked 2020-09-05 2020-09-[address] current (pack [facility] 00:00[facility]00 [facility] - Reported Cigarette 2020-09-05 2020-09-05 Religious pack-years 00:00:00 00:00:00 Hospital Alcohol Comment 2016-09-23 2016-09-23 rare Religious 00:00:00 00:00:00 Hospital History of tobacco 2011-09-29 User of smokeless University of use 00:00:00 tobacco [facility] Sex Ass[birth year] At [birth year] [facility] 00:00:00 00:00:00 Smoking Status Start Date Stop Date Source Ex-smoker 2022-02-11 00:00:00 2022-02-11 00:00:00 [facility] ty of [facility] Medications Ordered Filled Start Stop Current Ordering Indication Dosage Frequency Signature Comments Components Source Medication Medication Date Date Medication? Clinician (SIG) Name Name zoster 2021-05- Yes [id number] .5mL 0.5 mL by Univers vaccine, 0-14 10-15 9104 Intramuscu ity of recombinant 00:00: 04:59 lar route [place] (SHINGRIX, 00 :00 once now Medic al PF,) for 1 Branch injection dose. And repeat in 2-6 months hydralAZINE Yes 25mg Take 25 mg Univers (APRESOLINE 9- by mouth ity of ) 25 mg 19:28: daily. [place] tablet [address] [place] [address] lisinopril Yes 40mg Take 40 mg U [...] o f 1 mg tablet 19:28: at [place] [address] bedtime. Medical Branch traZODone 2-0 Yes 50mg Take 50 mg Un matt 100 mg 9-27 by mouth ity of tablet 19:28: at [place] [address] bedtime. Medical Branch hydralAZINE 2021-0 Yes 25mg [...] 100 mg 04 (two) Medical tablet times [place] daily. amLODIPine 2-0 Yes 10mg Take 10 mg U nivers (NORVASC) 9-27 by mouth ity of 10 mg 19:28: daily. [place] tablet 04 Medical Branch clonazePAM 2021-0 Yes 1mg Take 1 mg Un matt (KLONOPIN) 9-27 by mouth ity o f 1 mg tablet 19:28: at [place] [address] bedtime. Medical Branch traZODone 2-0 Yes 50mg Take 50 mg Un matt 100 mg 9-27 by mouth ity of tablet 19:28: at [place] [address] bedtime. Medical Branch hydralAZINE 2-0 Yes 25mg [...] o f 1 mg tablet 19:28: at [place] [address] bedtime. Medical Branch traZODone 2021-0 Yes 50mg Take 50 mg Un matt 100 mg 9-27 by mouth ity of tablet 19:28: at [place] [address] bedtime. Medical Branch hydralAZINE 2021-0 Yes 25mg [...] o f 1 mg tablet 19:28: at [place] [address] bedtime. Medical Branch traZODone 2-0 Yes 50mg Take 50 mg Un matt 100 mg 9-27 by mouth ity of tablet 19:28: at [place] [address] bedtime. Medical Branch hydralAZINE 2-0 Yes 25mg [...] o f 1 mg tablet 19:28: at [place] [address] bedtime. Medical Branch traZODone 2021-0 Yes 50mg Take 50 mg Un matt 100 mg 9-27 by mouth ity of tablet 19:28: at [place] [address] bedtime. Medical Branch hydralAZINE 2021-0 Yes 25mg [...] o f 1 mg tablet 19:28: at [place] [address] bedtime. Medical Branch traZODone 2-0 Yes 50mg Take 50 mg Un matt 100 mg 02-16 by mouth ity of tablet 19:28: at [place] 04 bedtime. Medical Branch cefpodoxime 2021- Yes [id number] 200mg Take 1 Univers 200 mg 02-16 tablet by ity of tablet 00:00: 04:59 mouth in [place] 00 :00 the Medical morning Branch and 1 tablet in the evening. Do all this for 3 days. cefpodoxime 0 2021- Yes [id number] 200mg Take 1 Univers 200 mg 02-16 tablet by ity of tablet 00:00: 04:59 mouth in [place] 00 :00 the Medical morning Branch and 1 tablet in the evening. Do all this for 3 days. haloperidol 2021- No 2mg 2 mg, Slow Univers lactate 02-15 IV Push, ity of (HALDOL) 09:00: 09:12 ONCE, 1 [place] injection 2 00 :00 dose, On Medi porfirio mg [facility] 02/15/22 at 0400, Routine hydroCHLORO 0 Yes 25mg 25 mg, Univ ers thiazide 9-25 Oral, ity of (ESIDRIX) 14:00: DAILY, [place] capsule 25 00 First dose Med ical mg on [place] 02/14/22 at 0900, Until Discontinu ed, Routine butalbital- Yes 1{tbl} 1 tablet, [facility] acetaminoph 24 Oral, ity of en-caff 18:46: Q6HPRN, [place] (ESGIC) 06 Starting Medical 50-325-40 on Sat Branch mg tablet 1 02/13/22 at tablet 1346, Until Discontinu ed, Routine, headaches dicyclomine Yes 10mg 10 mg, Univ ers (BENTYL) 9-24 Oral, QID, ity o f capsule 10 17:00: First dose [place] mg 00 on [facility] Medical 02/13/22 at Branch 1200, [...] of 2,000 mg in 17:00: 18:24 Piggyback, [place] NaCl 0.9% 00 :00 Q24H ABX, Medic [...] AT 1700, Medical First dose Branch on [facility] 02/11/22 at 1700, Until Discontinu ed, Routine aspirin 2021- No 325mg 325 mg, Unive rs E.C. 02-11 Oral, ity of (ECOTRIN) 21:33: 21:44 ONCE, 1 [place] tablet 325 00 :00 dose, On Medic al mg [facility] 02/11/22 at 1645, Routine nitroglycer Yes .4mg 0.4 mg, Uni vers in 02-11 Sublingual ity of (NITROSTAT) 21:31: , Q5MIN [place] sublingual 20 PRN, Medical tablet 0.4 Starting Branc h mg on [facility] 02/11/22 at 1631, Until Discontinu ed, Routine, [...] of (MYCOLOG) 19:00: dose on [place] cream [facility] 02/11/22 at Branch 1400, Until Discontinu ed, Routine busPIRone 0 Yes 30mg 30 mg, Univer s (BUSPAR) 02-11 Oral, BID, ity o f tablet 30 18:00: [place] dose [place] 00 on [facility] 02/11/22 at Branch 1300, Until Discontinu ed, Routine raltegravir 2022-0 Yes 400mg 400 mg, Un matt (ISENTRESS) 02-11 Oral, BID, it y of tablet 400 18:00: First dose [place] mg 00 on [facility] Medical 02/11/22 at Branch 1300, Until Discontinu ed, JOE metoprolol 2021-0 Yes 100mg 100 mg, Uni vers tartrate 02-11 Oral, BID, ity o f (LOPRESSOR) 18:00: First dose [place] tablet 100 00 on [facility] Medical mg 02/11/22 at Branch 1300, Until Discontinu ed, Routine lisinopriL 0 Yes 40mg 40 mg, Unive rs (PRINIVIL,Z 02-11 Oral, BID, it y of ESTRIL) 18:00: First dose [place] tablet 40 00 on [facility] Medical mg 02/11/22 at Branch 1300, Until Discontinu ed, Routine emtricitabi 0 Yes 1{tbl} 1 tablet, [facility] 02-11 Oral, ity of r alafen 18:00: DAILY, [place] (DESCOVY) 00 First dose Medi porfirio tablet 1 on [facility] tablet 02/11/22 at 1300, Until Discontinu ed, Routine ipratropium 0 Yes .5mg 0.5 mg, Uni vers (ATROVENT) 02-11 Inhalation ity of 0.02 % 17:57: , QIDPRN, [place] nebulizer 10 Starting Medica l solution on [facility] 0.5 mg 02/11/22 at 1257, Until Discontinu ed, Routine, Wheezing, Shortness of Breath amLODIPine 0 Yes 10mg 10 mg, Unive rs (NORVASC) 02-11 Oral, ity of tablet 10 17:30: DAILY, [place] mg 00 First dose Medical (after Branch last modificati on) on [facility] 02/11/22 at 1230, Until Discontinu ed, Routine hydrALAZINE 2021- No 25mg 25 mg, Uni vers (APRESOLINE 02-11 Oral, ity of ) tablet 25 17:30: 12:54 DAILY, [place] mg 00 :55 First dose Medical (after Branch last modificati on) on [facility] 02/11/22 at 1230, Until Discontinu ed, Routine [...] Oral, ity of (TYLENOL 14:06: 17:37 Q6HPN, [place] #3) 300-30 19 :24 Starting Medic al mg tablet 1 on [place] Branch tablet 02/11/22 at 0906, Until Tue02/12/22 at 1237, Routine, Pain (scale 4-6) sennosides- 0 Yes 1{tbl} 1 tablet, Univers docusate 02-11 Oral, ity of sodium 14:06: QDAILYPRNLong[place], [place] (SENOKOT-S) 09 Starting Medi porfirio 8.6-50 mg on [facility] Branch per tablet 02/11/22 at 1 tablet 0906, Until Discontinu ed, Routine, Constipati on ondansetron 0 Yes 4mg 4 mg, Slow Univers (ZOFRAN 02-11 IV Push, ity of (PF)) 14:05: [place], [place] injection 4 59 Starting Medi porfirio mg on [place] [facility] 02/11/22 at 0905, Until Discontinu ed, Routine, Nausea and Vomiting (N/V) acetaminoph 2021-0 Yes 650mg 650 mg, Un matt en 02-11 Oral, ity of (TYLENOL) 14:04: Q6[place]PRN[place], [place] tablet 650 37 Starting Medic al [...] [facility] Branch amLODIPine 0 Yes 10mg Take 10 mg U nivers (NORVASC) 02-11 by mouth ity of 10 mg 09:10: daily. [facility] Branch piperacilli 2021- No 3.375g 3.375 g, [...] of therapy: 72 hours iopamidol 2021- No [id number] 60mL 60 mL, Univers (ISOVUE 02-11 Intravenou [...] Branch 02/11/22 at 0015, JOE emtricitabi Yes [id number] Take one Univers ne-tenofovi 9-12 po daily ity of r alafen 00:00: [place] (DESCOVY) 00 Medical tablet Branch emtricitabi Yes [id number] Take one Univers ne-tenofovi 9-12 po daily ity of r alafen 00:00: [place] (DESCOVY) 00 Medical tablet Branch emtricitabi Yes [id number] Take one Univers ne-tenofovi 9-12 po daily ity of r alafen 00:00: [place] (DESCOVY) 00 Medical tablet Branch emtricitabi Yes [id number] Take one Univers ne-tenofovi 9-12 po daily ity of r alafen 00:00: [place] (DESCOVY) 00 Medical tablet Branch emtricitabi Yes [id number] Take one Univers ne-tenofovi 9-12 po daily ity of r alafen 00:00: [place] (DESCOVY) 00 Medical tablet Branch emtricitabi Yes [id number] Take one Univers ne-tenofovi 9-12 po daily ity of r alafen 00:00: [place] (DESCOVY) 00 Medical tablet Branch emtricitabi Yes [id number] Take one Univers ne-tenofovi 9-12 po daily ity of r alafen 00:00: [place] (DESCOVY) 00 Medical tablet Branch naproxen 2021-0 Yes [id number] 500mg Take 1 U nivers (NAPROSYN) 7-24 tablet by ity of 500 mg 00:00: mouth in [place] tablet 00 the Medical morning Branch and 1 tablet in the evening. Take with meals. methocarbam 2-0 Yes [id number] 500mg Take 1 Univers oL 500 mg 7-24 tablet by ity o f tablet 00:00: mouth 4 [place] 00 (four) Medical times Branch daily. naproxen 2021-0 Yes [id number] 500mg Take 1 U nivers (NAPROSYN) 7-24 tablet by ity of 500 mg 00:00: mouth in [place] tablet 00 the Medical morning Branch and 1 tablet in the evening. Take with meals. methocarbam 2021-0 Yes [id number] 500mg Take 1 Univers oL 500 mg 7-24 tablet by ity o f tablet 00:00: mouth 4 [place] 00 (four) Medical times Branch daily. naproxen 2021-0 Yes [id number] 500mg Take 1 U nivers (NAPROSYN) 7-24 tablet by ity of 500 mg 00:00: mouth in [place] tablet 00 the Medical morning Branch and 1 tablet in the evening. Take with meals. methocarbam 2021-0 Yes [id number] 500mg Take 1 Univers oL 500 mg 7-24 tablet by ity o f tablet 00:00: mouth 4 [place] 00 (four) Medical times Branch daily. esomeprazol 2021- No 40mg Take 40 mg Univers e (NEXIUM) 11-20 by mouth 2 it y of 40 mg 09:12: 00:00 (two) [place] capsule 03 :00 times Medical daily. Branch amiodarone 2021- No 100mg Take 100 U nivers 100 mg 11-20 mg by ity of tablet 09:11: 00:00 mouth [place] 57 :00 daily. Medical Branch apixaban 2021- No 5mg Take 5 mg Uni vers (ELIQUIS) 5 11-20 by mouth 2 i ty of mg tablet 09:11: 00:00 (two) [place] 35 :00 times Medical daily. Branch traZODONE No Take by [facility] ers (DESYREL) 11-20 mouth at ity o f 10 mg/mL 09:10: 00:00 [place]time. [place] oral 28 :00 Medical suspension Branch hydralAZINE Yes 25mg Take 25 mg Univers (APRESOLINE 11-20 by mouth ity of ) 25 mg 08:47: daily. [place] tablet 47 Medical Branch cephALEXin 2021- No [id number] 500mg Take 1 Univers (KEFLEX) 10-24 capsule [...] 7-10). Indication s: acute pain buPROPion Yes [id number] 150mg Take 1 U nivers XL 4-12 tablet by ity of (WELLBUTRIN 00:00: mouth [place] XL) 150 mg 00 daily. Medical 24 hr Branch tablet busPIRone Yes [id number] 30mg Take 1 Un matt 30 mg 4-12 tablet by ity of tablet 00:00: mouth 2 00 (two) Medical times Branch daily. SERTraline Yes [id number] 200mg Take 2 Univers 100 mg 4-12 tablets by ity of tablet 00:00: mouth [place] 00 daily. Medical Branch buPROPion Yes [id number] 150mg Take 1 U nivers XL 4-12 tablet by ity of (WELLBUTRIN 00:00: mouth [place] XL) 150 mg 00 daily. Medical 24 hr Branch tablet busPIRone Yes [id number] 30mg Take 1 Un matt 30 mg 4-12 tablet by ity of tablet 00:00: mouth 2 [place] 00 (two) Medical times Branch daily. SERTraline Yes [id number] 200mg Take 2 Univers 100 mg 4-12 tablets by ity of tablet 00:00: mouth [place] 00 daily. Medical Branch buPROPion 2021-0 Yes [id number] 150mg Take 1 U nivers XL 4-12 tablet by ity of (WELLBUTRIN 00:00: mouth [place] XL) 150 mg 00 daily. Medical 24 hr Branch tablet busPIRone 2021-0 Yes [id number] 30mg Take 1 Un matt 30 mg 4-12 tablet by ity of tablet 00:00: mouth 2 [place] 00 (two) Medical times Branch daily. SERTraline 2021-0 Yes [id number] 200mg Take 2 Univers 100 mg 4-12 tablets by ity of tablet 00:00: mouth [place] 00 daily. Medical Branch buPROPion 2021-0 Yes [id number] 150mg Take 1 U nivers XL 4-12 tablet by ity of (WELLBUTRIN 00:00: mouth [place] XL) 150 mg 00 daily. Medical 24 hr Branch tablet busPIRone 2021-0 Yes [id number] 30mg Take 1 Un matt 30 mg 4-12 tablet by ity of tablet 00:00: mouth 2 [place] 00 (two) Medical times Branch daily. SERTraline 2021-0 Yes [id number] 200mg Take 2 Univers 100 mg 4-12 tablets by ity of tablet 00:00: mouth [place] 00 daily. Medical Branch buPROPion 2021-0 Yes [id number] 150mg Take 1 U nivers XL 4-12 tablet by ity of (WELLBUTRIN 00:00: mouth [place] XL) 150 mg 00 daily. Medical 24 hr Branch tablet busPIRone 2021-0 Yes [id number] 30mg Take 1 Un matt 30 mg 4-12 tablet by ity of tablet 00:00: mouth 2 [place] 00 (two) Medical times Branch daily. SERTraline 2021-0 Yes [id number] 200mg Take 2 Univers 100 mg 4-12 tablets by ity of tablet 00:00: mouth [place] 00 daily. Medical Branch buPROPion 2021-0 Yes [id number] 150mg Take 1 U nivers XL 4-12 tablet by ity of (WELLBUTRIN 00:00: mouth [place] XL) 150 mg 00 daily. Medical 24 hr Branch tablet busPIRone 2021-0 Yes [id number] 30mg Take 1 Un matt 30 mg 4-12 tablet by ity of tablet 00:00: mouth 2 [place] 00 (two) Medical times Branch daily. SERTraline 2021-0 Yes [id number] 200mg Take 2 Univers 100 mg 4-12 tablets by ity of tablet 00:00: mouth [place] 00 daily. Medical Branch buPROPion 2021-0 Yes [id number] 150mg Take 1 U nivers XL 4-12 tablet by ity of (WELLBUTRIN 00:00: mouth [place] XL) 150 mg 00 daily. Medical 24 hr Branch tablet busPIRone 2021-0 Yes [id number] 30mg Take 1 Un matt 30 mg 4-12 tablet by ity of tablet 00:00: mouth 2 [place] 00 (two) Medical times Branch daily. SERTraline 2021-0 Yes [id number] 200mg Take 2 Univers 100 mg 4-12 tablets by ity of tablet 00:00: mouth [place] 00 daily. Medical Branch buPROPion 2021-0 Yes [id number] 150mg Take 1 U nivers XL 4-12 tablet by ity of (WELLBUTRIN 00:00: mouth [place] XL) 150 mg 00 daily. Medical 24 hr Branch tablet busPIRone 2021-0 Yes [id number] 30mg Take 1 Un matt 30 mg 4-12 tablet by ity of tablet 00:00: mouth 2 [place] 00 (two) Medical times Branch daily. SERTraline 2021-0 Yes [id number] 200mg Take 2 Univers 100 mg 4-12 tablets by ity of tablet 00:00: mouth [place] 00 daily. Medical Branch raltegravir 2021-0 Yes [id number] 400mg Take 1 Univers (ISENTRESS) 3-28 tablet by ity of 400 mg 00:00: mouth 2 [place] tablet 00 (two) Medical times Branch daily. raltegravir 2-0 Yes [id number] 400mg Take 1 Univers (ISENTRESS) 3-28 tablet by ity of 400 mg 00:00: mouth 2 [place] tablet 00 (two) Medical times Branch daily. raltegravir 2022-0 Yes [id number] 400mg Take 1 Univers (ISENTRESS) 3-28 tablet by ity of 400 mg 00:00: mouth 2 [place] tablet 00 (two) Medical times Branch daily. raltegravir 2022-0 Yes [id number] 400mg Take 1 Univers (ISENTRESS) 3-28 tablet by ity of 400 mg 00:00: mouth 2 [place] tablet 00 (two) Medical times Branch daily. raltegravir 2021-0 Yes [id number] 400mg Take 1 Univers (ISENTRESS) 3-28 tablet by ity of 400 mg 00:00: mouth 2 [place] tablet 00 (two) Medical times Branch daily. raltegravir 2021-0 Yes [id number] 400mg Take 1 Univers (ISENTRESS) 3-28 tablet by ity of 400 mg 00:00: mouth 2 [place] tablet 00 (two) Medical times Branch daily. raltegravir 2021-0 Yes [id number] 400mg Take 1 Univers (ISENTRESS) 3-28 tablet by ity of 400 mg 00:00: mouth 2 [place] tablet 00 (two) Medical times Branch daily. raltegravir 2021-0 Yes [id number] 400mg Take 1 Univers (ISENTRESS) 3-28 tablet by ity of 400 mg 00:00: mouth 2 [place] tablet 00 (two) Medical times Branch daily. LORazepam 1 2021- No [id number] 1mg Take 1 Univers mg tablet 3-21 [...] times a tablet day. emtricitabi 2021- No [id number] Take one Univers ne-tenofovi 1-20 09-12 po daily ity of r alafen 00:00: 00:00 [place] (DESCOVY) 00 :00 Medical tablet Branch metoprolol 0 Yes [id number] Take 1 [place] tartrate 7-26 tablet Health (Lopressor) 00:00: (100 mg 100 MG 00 total) by tablet mouth 2 (two) times a day AND 0.5 tablets (50 mg total) every night. metoprolol Yes [id number] Take 1 [place] tartrate 7-26 tablet Health (Lopressor) 00:00: (100 mg 100 MG 00 total) by tablet mouth 2 (two) times a day AND 0.5 tablets (50 mg total) every night. raltegravir Yes 400mg Q.5D Take 400 U T (Isentress) 7-23 mg by Health 400 MG 08:03: mouth 2 tablet 05 (two) times a day. clobetasol Yes 1{appli Q.5D Apply 1 M ethodi (TEMOVATE) 7-19 cation} applicatio st 0.05 % 10:51: n Hospita ointment 25 topically l 2 (two) times a day. (affected area in groin) hydrALAZINE Yes 50mg Q.[id number] Take 50 mg Methodi (APRESOLINE 7-19 [id number] mouth [address] ) 50 MG [...] area in groin) hydrALAZINE 0 Yes 50mg Q.[id number] Take 50 mg Methodi (APRESOLINE 7-19 [id number] by mouth 3 st ) 50 MG [...] area in groin) hydrALAZINE 2020-0 Yes 50mg Q.[id number] Take 50 mg Methodi (APRESOLINE 7-19 [id number] [address] mouth 3 [facility] ) 50 MG [...] (affected area in groin) hydrALAZINE Yes 50mg Q.[id number] Take 50 mg Methodi (APRESOLINE 7-19 [id number] [address] mouth 3 [facility] ) 50 MG [...] (affected area in groin) hydrALAZINE Yes 50mg Q.[id number] Take 50 mg Methodi (APRESOLINE 7-19 [id number] by mouth 3 st ) 50 MG [...] area in groin) hydrALAZINE 0 Yes 50mg Q.[id number] Take 50 mg Methodi (APRESOLINE 7-19 [id number] [address] mouth 3 st ) 50 MG [...] (affected area in groin) hydrALAZINE Yes 50mg Q.[id number] Take 50 mg Methodi (APRESOLINE 7-19 [id number] [address] mouth 3 [address] ) 50 MG [...] (affected area in groin) hydrALAZINE Yes 50mg Q.[id number] Take 50 mg Methodi (APRESOLINE 7-19 [id number] [address] mouth 3 [facility] ) 50 MG [...] area in groin) hydrALAZINE 0 Yes 50mg Q.[id number] Take 50 mg Methodi (APRESOLINE 7-19 [id number] mouth 3 [address] ) 50 MG [...] area in groin) hydrALAZINE 0 Yes 50mg Q.[id number] Take 50 mg Methodi (APRESOLINE 7-[id number] [address] mouth 3 [address] ) 50 MG [...] (affected area in groin) hydrALAZINE Yes 50mg Q.[id number] Take 50 mg Methodi (APRESOLINE 7-19 [id number] [address] mouth 3 st ) 50 MG [...] area in groin) hydrALAZINE 0 Yes 50mg Q.[id number] Take 50 mg Methodi (APRESOLINE 7-19 [id number] mouth 3 [address] ) 50 MG [...] area in groin) hydrALAZINE 0 Yes 50mg Q.[id number] Take 50 mg Methodi (APRESOLINE 7-19 [id number] mouth [address] ) 50 MG [...] (affected area in groin) hydrALAZINE Yes 50mg Q.[id number] Take 50 mg [facility] (APRESOLINE 7-19 [id number] by mouth 3 st ) 50 MG [...] area in groin) hydrALAZINE 0 Yes 50mg Q.[id number] Take 50 mg [facility] (APRESOLINE 7-19 [id number] by mouth 3 st ) 50 MG [...] area in groin) hydrALAZINE 0 Yes 50mg Q.[id number] Take 50 mg [facility] (APRESOLINE 7-19 [id number] by mouth 3 st ) 50 MG [...] (affected area in groin) hydrALAZINE Yes 50mg Q.[id number] Take 50 mg [facility] (APRESOLINE 7-19 [id number] by mouth 3 st ) 50 MG [...] area in groin) hydrALAZINE 0 Yes 50mg Q.[id number] Take 50 mg [facility] (APRESOLINE 7-19 [id number] by mouth 3 st ) 50 MG [...] area in groin) hydrALAZINE 0 Yes 50mg Q.[id number] Take 50 mg [facility] (APRESOLINE 7-19 [id number] by mouth 3 st ) 50 MG [...] (affected area in groin) hydrALAZINE Yes 50mg Q.[id number] Take 50 mg [facility] (APRESOLINE 7-19 [id number] by mouth 3 st ) 50 MG [...] spita 25 needed for l anxiety. sertraline 2020-0 Yes 200mg QD Take 200 Me [facility] (ZOLOFT) 7-[address] 100 MG 10:51: mouth [facility] tablet 25 daily. l nystatin-tr 2020-0 Yes [id number] Apply to [facility] iamcinolone 7-06 area(s) 3 ity of cream 00:00: (three) [place] 00 times Medical daily. Branch nystatin-tr 2021-0 Yes [id number] Apply to [facility] iamcinolone 7-06 area(s) 3 ity of cream 00:00: (three) [place] 00 times Medical daily. Branch nystatin-tr 2021-0 Yes [id number] Apply to [facility] iamcinolone 7-06 area(s) 3 ity of cream 00:00: (three) [place] 00 times Medical daily. Branch nystatin-tr 2021-0 Yes [id number] Apply to [facility] iamcinolone 7-06 area(s) 3 ity of cream 00:00: (three) [place] 00 times Medical daily. Branch nystatin-tr 2021-0 Yes [id number] Apply to [facility] iamcinolone 7-06 area(s) 3 ity of cream 00:00: (three) [place] 00 times Medical daily. Branch nystatin-tr 2021-0 Yes [id number] Apply to [facility] iamcinolone 7-06 area(s) 3 ity of cream 00:00: (three) [place] 00 times Medical daily. Branch nystatin-tr 2021-0 Yes [id number] Apply to [facility] iamcinolone 7-06 area(s) 3 ity of cream 00:00: (three) [place] 00 times Medical daily. Branch nystatin-tr 0 Yes [id number] Apply to [facility] 11-25 area(s) 3 ity of cream 00:00: (three) [place] 00 times Medical daily. Branch budesonide- 2020-0 2021- No 1{puff} QD Inhale 1 [facility] formoteroL 6-25 06-[address] (SYMBICORT) 14:37: 00:00 morning. H ospita 160-4.5 02 :00 l mcg/actuati on inhaler hydrALAZINE 0 Yes [id number] 50mg Q.[id number] Take 1 [place] (Apresoline 6-11 [id number] tablet (50 Health ) 50 MG 00:00: 3D mg total) tablet 00 by mouth 3 (three) times a day. hydrALAZINE 0 Yes [id number] 50mg Q.[id number] Take 1 [place] (Apresoline 6-11 [id number] tablet (50 Health ) 50 MG 00:00: [...] ointment 00 mupirocin 0 Yes [facility] (Bactroban) 28 [facility] 2 % 00:00: ointment 00 nystatin 2020- No [id number] Q.25D Take 5 mL [facility] (MYCOSTATIN 10-06 [...] ia 4-10 (Same as: l 14:00: Norvasc) [place] emtricitabi No Notes: Caesar lisa ne 200 MG / 4-10 (Same as: l tenofovir 14:00: Descovy) Herm ariel alafenamide 00 Non-formul 25 MG Oral nancy Tablet [Descovy] pantoprazol No Notes: Caesar lisa e 4-10 Tablet l 14:00: should not [place] 00 be chewed or crushed. (Same as: Protonix) Amiodarone No Notes: Memor ia 4-10 (Same as: l 14:00: Cordarone) [place] Amlodipine No Notes: Memor ia 4-10 (Same as: l 14:00: Norvasc) [place] emtricitabi No Notes: Caesar lisa ne 200 MG / 4-10 (Same as: l tenofovir 14:00: Descovy) Herm ariel alafenamide 00 Non-formul 25 MG Oral nancy Tablet [Descovy] Sertraline No Notes: Memor ia 4-10 (Same as: l 14:00: Zoloft) [place] 00 Sertraline No Notes: Memor ia 4-10 (Same as: l 14:00: Zoloft) [place] 00 pantoprazol No Notes: Caesar lisa e [...] e 4-10 Tablet l 14:00: should not [place] 00 be chewed or crushed. (Same as: [...] ia 4-10 (Same as: l 14:00: Norvasc) [place] 00 emtricitabi No Notes: Caesar lisa ne 200 MG / 4-10 (Same as: l tenofovir 14:00: Descovy) Herm ariel alafenamide 00 Non-formul 25 MG Oral nancy Tablet [Descovy] Sertraline No Notes: Memor ia 4-10 (Same as: l 14:00: Zoloft) [place] 00 pantoprazol No Notes: Caesar lisa e 4-10 Tablet l 14:00: should not [place] 00 be chewed or crushed. (Same as: Protonix) Amiodarone No Notes: Memor ia 4-10 (Same as: l 14:00: Cordarone) [place] 00 Amlodipine No Notes: Memor ia 4-10 (Same as: l 14:00: Norvasc) [place] emtricitabi No Notes: Caesar lisa ne 200 MG / 4-10 (Same as: l tenofovir 14:00: Descovy) Herm ariel alafenamide 00 Non-formul 25 MG Oral nancy Tablet [Descovy] Sertraline No Notes: Memor ia 4-10 (Same as: l 14:00: Zoloft) [place] 00 pantoprazol No Notes: Caesar lisa e 4-10 Tablet l 14:00: should not [place] 00 be chewed or crushed. (Same as: Protonix) Amiodarone No Notes: Memor ia 4-10 (Same as: l 14:00: Cordarone) [place] 00 Amlodipine No Notes: Memor ia 4-10 (Same as: l 14:00: Norvasc) [place] 00 emtricitabi No Notes: Caesar lisa ne 200 MG / 4-10 (Same as: l tenofovir 14:00: Descovy) Herm ariel alafenamide 00 Non-formul 25 MG Oral nancy Tablet [Descovy] Sertraline No Notes: Memor ia 4-10 (Same as: l 14:00: Zoloft) [place] 00 pantoprazol No Notes: Caesar lisa e 4-10 Tablet l 14:00: should not [place] 00 be chewed or crushed. (Same as: Protonix) Amiodarone No Notes: Memor ia 4-10 (Same as: l 14:00: Cordarone) [place] 00 Sucralfate No Notes: May M emoria 4-10 interfere l 02:00: w/enteral [place] 00 feeds - Take 1 hr before [...] M emoria 4-10 interfere l 02:00: w/enteral [place] 00 feeds - Take 1 hr before or 2 hr after antacids, dairy pdt, meals & minerals - On empty stomach. For patients unable to swallow tablet, dissolve in 10mL - 30mL of water or juice and stir before giving. (Same As: Carafate) Saline No Notes: [facility] Flush 0.9% 4-10 (Same as: l 02:00: BD [place] Posiflush) Eliquis No Notes: [facility] 4-10 Same as: l 02:00: Eliquis [place] 00 Hydralazine No Notes: Caesar lisa Hydrochlori 4-10 (Same as: l de 50 MG 02:00: Apresoline Her mitchell Oral Tablet 00 ) May interfere w/enteral feedings Take With Food Sucralfate No Notes: May M emoria 4-10 interfere l 02:00: w/enteral [place] 00 feeds - Take 1 hr before or 2 hr after antacids, dairy pdt, meals & minerals - On empty stomach. For patients unable to swallow tablet, dissolve in 10mL - 30mL of water or juice and stir before giving. (Same As: Carafate) Saline No Notes: [facility] Flush 0.9% 4-10 (Same as: l 02:00: BD [place] 00 Posiflush) Eliquis No Notes: [facility] 4-10 Same as: l 02:00: Eliquis [place] Hydralazine No Notes: Caesar lisa Hydrochlori 4-10 [...] Memoria 4-10 Same as: l 02:00: Eliquis [place] Hydralazine No Notes: Caesar lisa Hydrochlori 4-10 [...] 0.9% 4-10 (Same as: l 02:00: BD [place] Posiflush) Eliquis No Notes: [facility] 4-10 Same as: l 02:00: Eliquis [place] 00 Hydralazine No Notes: Caesar lisa Hydrochlori [...] not exceed l #3 00:12: 4gm/day of [place] acetaminop hen. (Same as: Tylenol with Codeine # 3) acetaminoph No Notes: Do M emoria en-codeine 4-10 not exceed l #3 00:12: 4gm/day of [place] acetaminop hen. (Same as: Tylenol with Codeine # 3) acetaminoph No Notes: Do M emoria en-codeine 4-10 not exceed l #3 00:12: 4gm/day of [place] acetaminop hen. (Same as: Tylenol with Codeine # 3) acetaminoph No Notes: Do M emoria en-codeine 4-10 not exceed l #3 00:12: 4gm/day of [place] acetaminop hen. (Same as: Tylenol with Codeine # 3) acetaminoph No Notes: Do M emoria en-codeine 4-10 not exceed l #3 00:12: 4gm/day of [place] acetaminop hen. (Same as: Tylenol with Codeine [...] oria 4-09 tab, l 22:00: Route: PO, [place] 00 Drug form: TAB, BID, Dosing Weight 97.273, kg, Start date: 08/29/20 17:00:00 CDT, Duration: 30 day, Stop date: 09/28/20 9:00:00 CDT metoprolol 2020-0 No 100 mg, 1 Me moria tartrate 4-09 tab, l 22:00: Route: PO, [place] 00 Drug form: TAB, BID, Dosing Weight [...] oria 4-09 tab, l 22:00: Route: PO, [place] 00 Drug form: TAB, BID, Dosing Weight [...] -09 (Same As: l 22:00: BuSpar) Lisinopril 1-0 [...] oria 4-09 tab, l 22:00: Route: PO, [place] 00 Drug form: TAB, BID, Dosing Weight [...] l Tablet 22:00: Route: PO, Skylar nn [[facility]] 00 Drug form: TAB, BID, Dosing Weight 97.273, kg, Start date: 08/29/20 17:00:00 CDT, Duration: 30 day, Stop date: 09/28/20 9:00:00 CDT, 0 Buspirone 1-0 No Notes: Mem[facility] a 08-29 (Same As: l 22:00: BuSpar) Lisinopril 2020-0 No 40 mg, 1 Mem oria - tab, l 22:00: Route: PO, [place] 00 Drug form: TAB, BID, Dosing Weight [...] CDT, 0 Morphine 0 No Notes: Memoria 4-09 (Same l 17:07: as:MORPhin [place] 00 e Sulfate) Morphine No Notes: [facility] 4-09 (Same l 17:07: as:MORPhin [place] 00 e Sulfate) Morphine No Notes: [facility] 4-09 (Same l 17:07: as:MORPhin [place] 00 e Sulfate) Morphine No Notes: [facility] 4-09 (Same l 17:07: as:MORPhin [place] 00 e Sulfate) Morphine 2020-0 No Notes: [facility]oria 4- (Same l 17:07: as:MORPhin [place] 00 e Sulfate) Morphine 2020-0 No Notes: [facility] 4- (Same l 17:07: as:MORPhin [place] 00 e Sulfate) Morphine 2020-0 No Notes: [...] 30 tab, 0 coated Refill(s), tablet Pharmacy: [facility] 149, 162.56, cm, 08/29/20 5:30:00 CDT, Height, 97.273, kg, 08/29/20 5:30:00 CDT, Weight pantoprazol 2020-0 Yes 40 mg = 1 M emoria e 40 mg 4-09 tab, PO, l oral 15:27: Daily, # Marty enteric 00 30 tab, 0 coated Refill(s), tablet Pharmacy: [facility] 149, 162.56, cm, 08/29/20 5:30:00 CDT, Height, 97.273, kg, 08/29/20 5:30:00 CDT, Weight pantoprazol 2020-0 Yes 40 mg = 1 M emoria e 40 mg 4-09 tab, PO, l oral 15:27: Daily, # [place] enteric 00 30 tab, 0 coated Refill(s), tablet Pharmacy: [facility] 149, 162.56, cm, 08/29/20 5:30:00 CDT, Height, 97.273, kg, 08/29/20 5:30:00 CDT, Weight pantoprazol 2020-0 Yes 40 mg = 1 M emoria e 40 mg 4-09 tab, PO, l oral 15:27: Daily, # [place] enteric 00 30 tab, 0 coated Refill(s), tablet Pharmacy: [facility] 149, 162.56, cm, 08/29/20 5:30:00 CDT, Height, 97.273, kg, 08/29/20 5:30:00 CDT, Weight pantoprazol 2020-0 Yes 40 mg = 1 M emoria e 40 mg 4-09 tab, PO, l oral 15:27: Daily, # [place] enteric 00 30 tab, 0 coated Refill(s), tablet Pharmacy: [facility] 149, 162.56, cm, 08/29/20 5:30:00 CDT, Height, 97.273, kg, 08/29/20 5:30:00 CDT, Weight pantoprazol 2020-0 Yes 40 mg = 1 M emoria e 40 mg 4-09 tab, PO, l oral 15:27: Daily, # [place] enteric 00 30 tab, 0 coated Refill(s), tablet Pharmacy: [facility] 149, 162.56, cm, 08/29/20 5:30:00 CDT, Height, 97.273, kg, 08/29/20 5:30:00 CDT, Weight pantoprazol 2020-0 Yes 40 mg = 1 M emoria e 40 mg 4-09 tab, PO, l oral 15:27: Daily, # [place] enteric 00 30 tab, 0 coated Refill(s), tablet Pharmacy: [facility] 149, 162.56, cm, 08/29/20 5:30:00 CDT, Height, [...] Skylar nn 00 tab, 0 Refill(s), Pharmacy: [facility] 149, 162.56, cm, 08/29/20 5:30:00 CDT, Height, 97.273, kg, 08/29/20 5:30:00 CDT, Weight pantoprazol 2020-0 No 40 mg = 1 M emoria e 40 mg 4-09 tab, PO, l oral 15:26: Daily, # [place] enteric 00 30 tab, 0 coated Refill(s) tablet sucralfate 2020-0 Yes 1 gm = 1 Mem oria 1 g oral 4-09 tab, PO, l tablet 15:26: Q12H, # 28 Skylar nn 00 tab, 0 Refill(s), Pharmacy: [facility] 149, 162.56, cm, 08/29/20 5:30:00 CDT, Height, 97.273, kg, 08/29/20 5:30:00 CDT, Weight pantoprazol 2020-0 No 40 mg = 1 M emoria e 40 mg 4-09 tab, PO, l oral 15:26: Daily, # [place] enteric 00 30 tab, 0 coated Refill(s) tablet sucralfate 2020-0 Yes 1 gm = 1 Mem oria 1 g oral 4-09 tab, PO, l tablet 15:26: Q12H, # 28 Skylar nn 00 tab, 0 Refill(s), Pharmacy: [place] [id number], 162.56, cm, 08/29/20 5:30:00 CDT, Height, 97.273, [...] Skylar nn 00 tab, 0 Refill(s), Pharmacy: [facility] 149, 162.56, cm, 08/29/20 5:30:00 CDT, Height, 97.273, kg, 08/29/20 5:30:00 CDT, Weight pantoprazol 2020-0 No 40 mg = 1 M emoria e 40 mg 4-09 tab, PO, l oral 15:26: Daily, # [place] enteric 00 30 tab, 0 coated Refill(s) tablet sucralfate Yes 1 gm = 1 Mem oria 1 g oral 4-09 tab, PO, l tablet 15:26: Q12H, # 28 [place]yl[place] nn 00 tab, 0 Refill(s), Pharmacy: [facility] 149, 162.56, cm, 08/29/20 5:30:00 CDT, Height, 97.273, kg, 08/29/20 5:30:00 CDT, Weight pantoprazol No 40 mg = 1 M emoria e 40 mg 4-09 tab, PO, l oral 15:26: Daily, # [place] enteric 00 30 tab, 0 coated Refill(s) tablet sucralfate Yes 1 gm = 1 Mem oria 1 g oral 4-09 tab, PO, l tablet 15:26: Q12H, # 28 Skylar nn 00 tab, 0 Refill(s), Pharmacy: [facility] 149, 162.56, cm, 08/29/20 5:30:00 CDT, Height, 97.273, kg, 08/29/20 5:30:00 CDT, Weight pantoprazol No 40 mg = 1 M emoria e 40 mg 4-09 tab, PO, l oral 15:26: Daily, # [place] enteric 00 30 tab, 0 coated Refill(s) tablet sucralfate Yes 1 gm = 1 Mem oria 1 g oral 4-09 tab, PO, l tablet 15:26: Q12H, # 28 Skylar nn 00 tab, 0 Refill(s), Pharmacy: [facility] 149, 162.56, cm, 08/29/20 5:30:00 CDT, Height, 97.273, kg, 08/29/20 5:30:00 CDT, Weight Saline No Notes: Memoria Flush 0.9% 08-29 (Same as: l 15:25: BD [place] Posiflush) Lorazepam No Notes: Memori a - [...] 0.9% 4-09 (Same as: l 15:25: BD [place] 00 Posiflush) Lorazepam No Notes: Memori a 4-09 (Same as: l 15:25: Ativan) Lorazepam No Notes: Memori a 4-09 (Same as: l 15:25: Ativan) Saline No Notes: [facility] Flush 0.9% 4-09 (Same as: l 15:25: BD [place] 00 Posiflush) Lorazepam No Notes: Memori a 4-09 (Same as: l 15:25: Ativan) Saline No Notes: [facility] Flush 0.9% 4-09 (Same as: l 15:25: BD [place] 00 Posiflush) Lorazepam No Notes: Memori a 4-09 (Same as: l 15:25: Ativan) Saline No Notes: [facility]oria Flush 0.9% 4-09 (Same as: l 15:25: BD [place] 00 Posiflush) Lorazepam No Notes: Memori a [...] Drug form: l mg + 15:00: INJ, [place] Dosing Weight 97.3, kg, Start date: 08/29/20 10:00:00 CDT, Stop date: 08/29/20 11:00:00 CDT Isuprel HCl 0 No Route: IV, [facility]oria (ANES) 0.2 08-29 Drug form: l mg + 15:00: INJ, Dosing Weight 97.3, kg, Start date: 08/29/20 10:00:00 CDT, Stop date: 08/29/20 11:00:00 CDT Isuprel HCl 0 No Route: IV, [facility] (ANES) 0.2 08-29 Drug form: l mg + 15:00: INJ, [place] 00 Dosing Weight 97.3, kg, Start date: [...] 00 Stop date: 08/29/20 9:49:00 CDT heparin 2020-0 [...] Memori a 08-29 Route: l 14:01: IVP, [place] 00 Q5Min, Dosing Weight 97.273, kg, PRN [...] lisa 08-29 Route: l 14:01: IVP, PRN, [place] 00 Dosing Weight 97.273, kg, PRN Benzodiaze [...] 08-29 Route: PO, l 14:01: Drug form: [place] 00 TAB, ONCE, Dosing Weight 97.273, kg, [...] lisa 08-29 Route: l 14:01: IVP, PRN, [place] 00 Dosing Weight 97.273, kg, PRN Benzodiaze pine Reversal, Initial dose, Start date: 08/29/20 9:01:00 CDT, Duration: 30 day, Stop date: 09/28/20 9:00:00 CDT Naloxone 1-0 No 0.4 mg, Memori a 08-29 Route: l 14:01: IVP, [place] 00 Q2MIN, Dosing Weight 97.273, kg, PRN Narcotic Reversal, Start date: 08/29/20 9:01:00 CDT, Duration: 8 doses or times, Stop date: Limited # of times Ondansetron 1-0 No 4 mg, Memor ia 08-29 Route: l 14:01: IVP, ONCE, [place] 00 Dosing Weight 97.273, kg, PRN Nausea & Vomiting, Start date: 08/29/20 9:01:00 CDT Labetalol 1-0 No 10 mg, Memori a 08-29 Route: l 14:01: IVP, [place] 00 Q5Min, Dosing Weight 97.273, kg, PRN Elevated BP, Start date: 08/29/20 9:01:00 CDT, Duration: 5 doses or times, Stop date: Limited # of times Acetaminoph 2020-0 No 1,000 mg, M emoria en 08-29 Route: PO, l 14:01: Drug form: [place] 00 TAB, ONCE, Dosing Weight 97.273, kg, [...] oria ne 08-29 Route: l 14:01: IVP, [place] 00 Q5Min, Dosing Weight 97.273, kg, PRN [...] ia 08-29 Route: l 14:01: IVP, ONCE, [place] 00 Dosing Weight 97.273, kg, PRN Nausea & Vomiting, Start date: 08/29/20 9:01:00 CDT Labetalol 2021-0 No 10 mg, Memori a 08-29 Route: l 14:01: IVP, [place] 00 Q5Min, Dosing Weight 97.273, kg, PRN Elevated BP, Start date: 08/29/20 9:01:00 CDT, Duration: 5 doses or times, Stop date: Limited # of times Acetaminoph 1-0 No 1,000 mg, M emoria en 08-29 Route: PO, l 14:01: Drug form: [place] 00 TAB, ONCE, Dosing Weight 97.273, kg, [...] 08-29 Route: PO, l 14:01: Drug form: [place] 00 TAB, ONCE, Dosing Weight 97.273, kg, [...] ia 08-29 Route: l 14:01: IVP, ONCE, [place] 00 Dosing Weight 97.273, kg, PRN Nausea & Vomiting, Start date: 08/29/20 9:01:00 CDT Naloxone 1-0 No 0.4 mg, Memori a 08-29 Route: l 14:01: IVP, [place] 00 Q2MIN, Dosing Weight 97.273, kg, PRN [...] 08-29 Route: PO, l 14:01: Drug form: [place] 00 TAB, ONCE, Dosing Weight 97.273, kg, [...] lisa 08-29 Route: l 14:01: IVP, PRN, [place] 00 Dosing Weight 97.273, kg, PRN Benzodiaze pine Reversal, Initial dose, Start date: 08/29/20 9:01:00 CDT, Duration: 30 day, Stop date: 09/28/20 9:00:00 CDT Naloxone 1-0 No 0.4 mg, Memori a 08-29 Route: l 14:01: IVP, [place] 00 Q2MIN, Dosing Weight 97.273, kg, PRN [...] 08-29 Route: PO, l 14:01: Drug form: [place] 00 TAB, ONCE, Dosing Weight 97.273, kg, [...] oria ne 08-29 Route: l 14:01: IVP, [place] 00 Q5Min, Dosing Weight 97.273, kg, PRN Pain Score 7-10, Start date: 08/29/20 9:01:00 CDT, Duration: 4 doses or times, Stop date: Limited # of times Flumazenil 2020-0 No 0.2 mg, Caesar lisa 08-29 Route: l 14:01: IVP, PRN, [place] Dosing Weight 97.273, kg, PRN Benzodiaze pine [...] 08-29 Drug form: l 13:42: INJ, ONCE, [place] 00 Stop date: 08/29/20 8:42:00 CDT fentaNYL 2020-0 No Route: IV, Mem oria (ANES) 08-29 Drug form: l 13:42: INJ, ONCE, [place] 00 Stop date: 08/29/20 8:42:00 CDT fentaNYL 2020-0 No Route: IV, Mem oria (ANES) 08-29 Drug form: l 13:42: INJ, ONCE, Stop date: 08/29/20 8:42:00 CDT norepinephr 2020-0 No Route: IV, Memoria ine (ANES) 08-29 Drug form: l 10 13:15: INJ, Start Matry microgram date: 08/29/20 8:15:00 CDT, Stop date: [...] Drug form: l 10 13:15: INJ, Start [place] microgram 00 date: 08/29/20 8:15:00 CDT, Stop [...] 4-09 Total l 0.9% IV 12:30: Volume: [place] (ANES) 1000 00 1,000, mL Start date: 08/29/20 7:30:00 CDT, Stop date: 08/29/20 8:30:00 CDT Sodium 2020-0 No Route: IV, Memor ia Chloride 4-09 Total l 0.9% IV 12:30: Volume: Marty (ANES) 1000 00 1,000, mL Start date: 08/29/20 7:30:00 CDT, Stop date: 08/29/20 8:30:00 CDT Sodium 202-0 No Route: IV, Memor ia Chloride 4-09 Total l 0.9% IV 12:30: Volume: [place] (ANES) 1000 00 1,000, mL Start date: [...] 4-09 Total l 0.9% IV 12:30: Volume: [place] (ANES) 1000 00 1,000, mL Start date: 08/29/20 7:30:00 CDT, Stop date: 08/29/20 8:30:00 CDT Sodium 1-0 No Route: IV, Memor ia Chloride 4-09 Total l 0.9% IV 12:30: Volume: [place] (ANES) 1000 00 1,000, mL Start date: [...] PO, l Hydrochlori 11:42: Q24H, # 30 [place] de 150 MG 00 tab, 0 Extended Refill(s) Release Tablet 24 HR Yes 150 mg = 1 Memori a Bupropion -09 tab, PO, l Hydrochlori 11:42: Q24H, # 30 [place] de 150 MG 00 tab, 0 Extended [...] PO, l Hydrochlori 11:42: Q24H, # 30 [place] de 150 MG 00 tab, 0 Extended [...] - Q12H, tab, l Tablet 11:41: 0 [place] [Eliquis] 00 Refill(s), For Atrial Fibrilatio n [...] 08-29 Q12H, tab, l Tablet 11:41: 0 [place] [Eliquis] 00 Refill(s), For Atrial Fibrilatio n apixaban 5 2020-0 Yes 5 mg, PO, Me moria MG Oral 08-29 Q12H, tab, l Tablet 11:41: 0 [place] [Eliquis] 00 Refill(s), For Atrial Fibrilatio n apixaban 5 2020-0 Yes 5 mg, PO, Me moria MG Oral 08-29 Q12H, tab, l Tablet 11:41: 0 [place] [Eliquis] 00 Refill(s), For Atrial Fibrilatio n apixaban 5 2020-0 Yes 5 mg, PO, Me moria MG Oral - Q12H, tab, l Tablet 11:41: 0 [place] [Eliquis] 00 Refill(s), For Atrial Fibrilatio n AMIODarone 2020-0 Yes 200 mg = 1 M emoria 200 mg oral -09 tab, PO, l tablet 11:38: Daily, # [place] 00 90 tab, 3 Refill(s) AMIODarone 2020-0 Yes 200 mg = 1 M emoria 200 mg oral 4-09 tab, PO, l tablet 11:38: Daily, # [place] 00 90 tab, 3 Refill(s) AMIODarone 2020-0 [...] tab, PO, l tablet 11:38: Daily, # [place] 00 90 tab, 3 Refill(s) AMIODarone 2020-0 Yes 200 mg = 1 M emoria 200 mg oral 4-09 tab, PO, l tablet 11:38: Daily, # [place] 00 90 tab, 3 Refill(s) AMIODarone 2020-0 [...] Hospita tablet 00 :00 l Eliquis 5 1-0 Yes [facility] mg tablet 08-16 00:00: Hospita 00 l Eliquis 5 1-0 Yes [facility] mg tablet 08-16 00:00: [facility]ospita 00 l Eliquis 5 1-0 Yes [facility] mg tablet [facility] 00:[facility]: [facility]ospita 00 l Eliquis 5 1-0 Yes [facility] mg tablet [facility] 00:[facility]: [facility]ospita 00 l Eliquis 5 1-0 Yes [facility] mg tablet 08-16 00:00: [facility]ospita 00 l Eliquis 5 1-0 Yes [facility] mg tablet 08-16 00:00: Hospita 00 l Eliquis 5 1-0 Yes [facility] mg tablet 08-16 00:00: [facility]ospita 00 l Eliquis 5 1-0 Yes [facility] mg tablet 08-16 00:00: [facility]ospita 00 l Eliquis 5 1-0 Yes [facility] mg tablet 08-16 00:00: [facility]ospita 00 l Eliquis 5 1-0 Yes [facility] mg tablet 08-16 00:00: [facility]ospita 00 l Eliquis 5 1-0 Yes [facility] mg tablet 08-16 00:00: [facility]ospita 00 l Eliquis 5 1-0 Yes [facility] mg tablet 08-16 00:00: [facility]ospita 00 l Eliquis 5 1-0 [...] Eliquis 5 1-0 Yes [facility] mg tablet [facility]-27 [facility] 00:00: [facility]ospita 00 l predniSONE Yes [place] (Deltasone) 3-13 [facility] 20 [...] Filled Immunization Date Status Comments [facility] e Immunization Name Name SARS-COV-2 COVID-19 2022-03-05 Completed Unive rsity of DIMITRIS-SUCROSE 00:[facility]:00 [place] [facility] VACCINE 12 Y[facility] BIVALENT 0.3ML, IM, (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) Influenza Virus 2022-03-05 Completed Universit [...] [place] 65+ PFIZER COVID-19 2020-07-23 Completed Religious MRNA VACCINATION 00:00:00 [facility] PFIZER COVID-19 2020-07-23 Completed Religious MRNA VACCINATION 00:00:00 [facility] PFIZER COVID-19 2020-07-23 Completed Religious MRNA VACCINATION 00:00:00 [facility] PFIZER COVID-19 2020-07-23 Completed Religious MRNA VACCINATION 00:00:00 [facility] PFIZER COVID-19 2020-07-23 Completed [facility] MRNA VACCINATION 00:00:00 [facility] PFIZER COVID-19 2020-07-23 Completed [facility] MRNA VACCINATION 00:00:00 [facility] PFIZER COVID-19 2020-07-23 Completed [facility] MRNA VACCINATION 00:00:00 [facility] PFIZER COVID-19 2020-07-23 Completed Religious MRNA VACCINATION 00:00:00 [facility] PFIZER COVID-19 2020-07-23 Completed [facility] MRNA VACCINATION 00:00:00 [facility] PFIZER COVID-19 2020-07-23 Completed [facility] MRNA VACCINATION 00:00:00 [facility] PFIZER COVID-19 2020-07-23 Completed [facility] MRNA VACCINATION 00:00:00 [facility] PFIZER COVID-19 2020-07-23 Completed [facility] MRNA VACCINATION 00:00:00 [facility] PFIZER COVID-19 2020-07-23 Completed [facility] MRNA VACCINATION 00:00:00 [facility] PFIZER COVID-19 2020-07-23 Completed [facility] MRNA VACCINATION 00:00:00 [facility] PFIZER COVID-19 2020-07-23 Completed [facility] MRNA VACCINATION 00:00:00 [facility] PFIZER COVID-19 2020-07-23 Completed [facility] MRNA VACCINATION 00:00:00 [facility] PFIZER COVID-19 2020-07-23 Completed [facility] MRNA VACCINATION 00:00:00 [facility] PFIZER COVID-19 2020-07-23 Completed [facility] MRNA VACCINATION 00:00:00 [facility] PFIZER COVID-19 2020-07-23 Completed [facility] MRNA VACCINATION 00:00:00 [facility] SARS-COV-2 COVID-19 2020-07-23 Completed [facility] PFIZER VACCINE 00:00:00 [facility] SARS-COV-2 COVID-19 2020-07-23 Completed [facility] of PFIZER VACCINE 00:00:00 [facility] SARS-COV-2 COVID-19 2020-07-23 Completed [facility] of PFIZER VACCINE 00:00:00 [facility] SARS-COV-2 COVID-19 2020-07-23 Completed [facility] of PFIZER VACCINE 00:00:00 [facility] PFIZER COVID-19 2020-07-23 Completed [facility] M[facility] VACCINATION 00:00:00 [facility] PFIZER COVID-19 2020-07-02 Completed [facility] M[facility] VACCINATION 00:00:00 [facility] PFIZER COVID-19 2020-07-02 Completed [facility] MRNA VACCINATION 00:00:00 [facility] PFIZER COVID-19 2020-07-02 Completed [facility] MRNA VACCINATION 00:00:00 [facility] PFIZER COVID-19 2020-07-02 Completed [facility] M[facility] VACCINATION 00:00:00 [facility] PFIZER COVID-19 2020-07-02 Completed [facility] MRNA VACCINATION 00:00:00 [facility] PFIZER COVID-19 2020-07-02 Completed Religious MRNA VACCINATION 00:00:00 [facility] PFIZER COVID-19 2020-07-02 Completed Religious MRNA VACCINATION 00:00:00 [facility] PFIZER COVID-19 2020-07-02 Completed Religious MRNA VACCINATION 00:00:00 [facility] PFIZER COVID-19 2020-07-02 Completed Religious MRNA VACCINATION 00:00:00 [facility] PFIZER COVID-19 2020-07-02 Completed Religious MRNA VACCINATION 00:00:00 [facility] PFIZER COVID-19 2020-07-02 Completed Religious MRNA VACCINATION 00:00:00 [facility] PFIZER COVID-19 2020-07-02 Completed Religious MRNA VACCINATION 00:00:00 [facility] PFIZER COVID-19 2020-07-02 Completed Religious MRNA VACCINATION 00:00:00 [facility] PFIZER COVID-19 2020-07-02 Completed Religious MRNA VACCINATION 00:00:00 [facility] PFIZER COVID-19 2020-07-02 Completed Religious MRNA VACCINATION 00:00:00 [facility] PFIZER COVID-19 2020-07-02 Completed Religious MRNA VACCINATION 00:00:00 [facility] PFIZER COVID-19 2020-07-02 Completed Religious MRNA VACCINATION 00:00:00 [facility] PFIZER COVID-19 2020-07-02 Completed Religious MRNA VACCINATION 00:00:00 [facility] PFIZER COVID-19 2020-07-02 Completed Religious MRNA VACCINATION 00:00:00 [facility] SARS-COV-2 COVID-19 2020-07-02 Completed Unive rsity of PFIZER VACCINE 00:00:00 [facility] SARS-COV-2 COVID-19 2020-07-02 Completed Unive rsity of PFIZER VACCINE 00:00:00 [facility] SARS-COV-2 COVID-19 2020-07-02 Completed Unive rsity of PFIZER VACCINE 00:00:00 [facility] SARS-COV-2 COVID-19 2020-07-02 Completed Unive rsity of PFIZER VACCINE 00:00:00 [facility] PFIZER COVID-19 2020-07-02 Completed Religious MRNA VACCINATION 00:00:00 [facility] Influenza Virus 2017-03-08 Completed Universit y of Vaccine 00:00:00 [facility] Influenza Virus 2017-03-08 Completed Universit y of Vaccine 00:00:00 [facility] Influenza Virus 2017-03-08 Completed Universit y of Vaccine 00:00:00 [facility] Influenza Virus 2017-03-08 Completed Universit y of Vaccine 00:00:00 [facility] Influenza Virus 2017-03-08 Completed Universit y of Vaccine 00:00:00 [facility] Influenza Virus 2017-03-08 Completed Universit y of Vaccine 00:00:00 [facility] Influenza Virus 2017-03-08 Completed Universit y of Vaccine 00:00:00 [facility] Influenza Virus 2017-03-08 Completed Universit y of Vaccine 00:00:00 [facility] Influenza Virus 2014-01-30 Completed Universit y of Vaccine (3+ yrs) 00:00:00 [facility] Pneumococcal 13 2014-01-30 Completed Universit y of Conjugate, PCV13 00:00:00 [facility] dical (Prevnar 13) [place] Influenza Virus 2014-01-30 Completed Universit y of Vaccine (3+ yrs) 00:00:00 [facility] Pneumococcal 13 2014-01-30 Completed Universit y of Conjugate, PCV13 00:00:00 [facility] dical (Prevnar 13) Branch Influenza Virus 2014-01-30 Completed Universit y of Vaccine (3+ yrs) 00:00:00 [facility] Pneumococcal 13 2014-01-30 Completed Universit y of Conjugate, PCV13 00:00:00 [facility] dical (Prevnar 13) [place] Influenza Virus 2014-01-30 Completed Universit y of Vaccine (3+ yrs) 00:00:00 [facility] Pneumococcal 13 2014-01-30 Completed Universit y of Conjugate, PCV13 00:00:00 [facility] dical (Prevnar 13) Branch Influenza Virus 2014-01-30 Completed Universit y of Vaccine (3+ yrs) 00:00:00 [facility] dical Branch Pneumococcal 13 2014-01-30 Completed Universit y of Conjugate, PCV13 00:00:00 [facility] dical (Prevnar 13) Branch Influenza Virus 2014-01-30 Completed Universit y of Vaccine (3+ yrs) 00:00:00 [facility] dical Branch Pneumococcal 13 2014-01-30 Completed Universit y of Conjugate, PCV13 00:00:00 [facility] dical (Prevnar 13) Branch Influenza Virus 2014-01-30 Completed Universit y of Vaccine (3+ yrs) 00:00:00 [facility] dical Branch Pneumococcal 13 2014-01-30 Completed Universit y of Conjugate, PCV13 00:00:00 [facility] dical (Prevnar 13) Branch Influenza Virus 2014-01-30 Completed Universit y of Vaccine (3+ yrs) 00:00:00 [facility] dical Branch Pneumococcal 13 2014-01-30 Completed Universit y of Conjugate, PCV13 00:00:00 [facility] dical (Prevnar 13) Branch Pneumococcal 2012-02-16 Completed University o f Polysaccharide, 00:00:00 [place] [facility] PPSV23 (PNEUMOVAX) Branch Influenza Virus 2012-02-16 Completed Universit y of Vaccine 00:00:00 [facility] PPD (TB) 2012-02-16 Completed University of 00:00:00 [facility] Pneumococcal 2012-02-16 Completed University o f Polysaccharide, 00:00:00 [place] [facility] PPSV23 (PNEUMOVAX) Branch Influenza Virus 2012-02-16 Completed Universit y of Vaccine 00:00:00 [facility] PPD (TB) 2012-02-16 Completed University of 00:00:00 [facility] Pneumococcal 2012-02-16 Completed University o f Polysaccharide, 00:00:00 [place] [facility] PPSV23 (PNEUMOVAX) Branch Influenza Virus 2012-02-16 Completed Universit y of Vaccine 00:00:00 [facility] PPD (TB) 2012-02-16 Completed University of 00:00:00 [facility] Pneumococcal 2012-02-16 Completed University o f Polysaccharide, 00:00:00 [place] [facility] PPSV23 (PNEUMOVAX) Branch Influenza Virus 2012-02-16 Completed Universit y of Vaccine 00:00:00 [facility] PPD (TB) 2012-02-16 Completed University of 00:00:00 [facility] Pneumococcal 2012-02-16 Completed University o f Polysaccharide, 00:00:00 [place] [facility] PPSV23 (PNEUMOVAX) Branch Influenza Virus 2012-02-16 Completed Universit y of Vaccine 00:00:00 [facility] PPD (TB) 2012-02-16 Completed University of 00:00:00 [facility] Pneumococcal 2012-02-16 Completed University o f Polysaccharide, 00:00:00 [place] [facility] PPSV23 (PNEUMOVAX) Branch Influenza Virus 2012-02-16 Completed Universit y of Vaccine 00:00:00 [facility] PPD (TB) 2012-02-16 Completed University of 00:00:00 [facility] Pneumococcal 2012-02-16 Completed University o f Polysaccharide, 00:00:00 [place] [facility] PPSV23 (PNEUMOVAX) Branch Influenza Virus 2012-02-16 Completed Universit y of Vaccine 00:00:00 [facility] PPD (TB) 2012-02-16 Completed University of 00:00:00 [facility] Pneumococcal 2012-02-16 Completed University o f Polysaccharide, 00:00:00 [place] [facility] PPSV23 (PNEUMOVAX) Branch Influenza Virus 2012-02-16 Completed Universit y of Vaccine 00:00:00 [facility] PPD (TB) 2012-02-16 Completed University of 00:00:00 [facility] Hep B, Adol or Pedi 2011-09-01 Completed Unive rsity of Dosage 00:00:00 [facility] Hep B, Adol or Pedi 2011-09-01 Completed Unive rsity of Dosage 00:00:00 [facility] Hep B, Adol or Pedi 2011-09-01 Completed Unive rsity of Dosage 00:00:00 [facility] Hep B, Adol or Pedi 2011-09-01 Completed Unive rsity of Dosage 00:00:00 [facility] Hep B, Adol or Pedi 2011-09-01 Completed Unive rsity of Dosage 00:00:00 [facility] Hep B, Adol or Pedi 2011-09-01 Completed Unive rsity of Dosage 00:00:00 [facility] Hep B, Adol or Pedi 2011-09-01 Completed Unive rsity of Dosage 00:00:00 [facility] Hep B, Adol or Pedi 2011-09-01 Completed Unive rsity of Dosage 00:00:00 [facility] Hep B, Adol or Pedi 2011-03-17 Completed Unive rsity of Dosage 00:00:00 [facility] Hep B, Adol or Pedi 2011-03-17 Completed Unive rsity of Dosage 00:00:00 [facility] Hep B, Adol or Pedi 2011-03-17 Completed Unive rsity of Dosage 00:00:00 [facility] Hep B, Adol or Pedi 2011-03-17 Completed Unive rsity of Dosage 00:00:00 [facility] Hep B, Adol or Pedi 2011-03-17 Completed Unive rsity of Dosage 00:00:00 [facility] Hep B, Adol or Pedi 2011-03-17 Completed Unive rsity of Dosage 00:00:00 [facility] Hep B, Adol or Pedi 2011-03-17 Completed Unive rsity of Dosage 00:00:00 [facility] Hep B, Adol or Pedi 2011-03-17 Completed Unive rsity of Dosage 00:00:00 [facility] Influenza Virus 2011-02-10 Completed Universit y of Vaccine 00:00:00 [facility] Hep B, Adol or Pedi 2011-02-10 Completed Unive rsity of Dosage 00:00:00 [facility] Influenza Virus 2011-02-10 Completed Universit y of Vaccine 00:00:00 [facility] Hep B, Adol or Pedi 2011-02-10 Completed Unive rsity of Dosage 00:00:00 [facility] Influenza Virus 2011-02-10 Completed Universit y of Vaccine 00:00:00 [facility] Hep B, Adol or Pedi 2011-02-10 Completed Unive rsity of Dosage 00:00:00 [facility] Influenza Virus 2011-02-10 Completed Universit y of Vaccine 00:00:00 [facility] Hep B, Adol or Pedi 2011-02-10 Completed Unive rsity of Dosage 00:00:00 [facility] Influenza Virus 2011-02-10 Completed Universit y of Vaccine 00:00:00 [facility] Hep B, Adol or Pedi 2011-02-10 Completed Unive rsity of Dosage 00:00:00 [facility] Influenza Virus 2011-02-10 Completed Universit y of Vaccine 00:00:00 [facility] Hep B, Adol or Pedi 2011-02-10 Completed Unive rsity of Dosage 00:00:00 [facility] Influenza Virus 2011-02-10 Completed Universit y of Vaccine 00:00:00 [facility] Hep B, Adol or Pedi 2011-02-10 Completed Unive rsity of Dosage 00:00:00 [facility] Influenza Virus 2011-02-10 Completed Universit y of Vaccine 00:00:00 [facility] Hep B, Adol or Pedi 2011-02-10 Completed Unive rsity of Dosage 00:00:00 [facility] PPD (TB) 2010-11-18 Completed University of 00:00:00 [facility] TDAP (ADACEL) 2010-11-18 Completed University of VACCINE 00:00:00 [facility] PPD (TB) 2010-11-18 Completed University of 00:00:00 [facility] TDAP (ADACEL) 2010-11-18 Completed University of VACCINE 00:00:00 [facility] PPD (TB) 2010-11-18 Completed University of 00:00:00 [facility] TDAP (ADACEL) 2010-11-18 Completed University of VACCINE 00:00:00 [facility] PPD (TB) 2010-11-18 Completed University of 00:00:00 [facility] TDAP (ADACEL) 2010-11-18 Completed University of VACCINE 00:00:00 [facility] PPD (TB) 2010-11-18 Completed University of 00:00:00 [facility] TDAP (ADACEL) 2010-11-18 Completed University of VACCINE 00:00:00 [facility] PPD (TB) 2010-11-18 Completed University of 00:00:00 [facility] TDAP (ADACEL) 2010-11-18 Completed University of VACCINE 00:00:00 [facility] PPD (TB) 2010-11-18 Completed University of 00:00:00 [facility] TDAP (ADACEL) 2010-11-18 Completed University of VACCINE 00:00:00 [facility] PPD (TB) 2010-11-18 Completed University of 00:00:00 [facility] TDAP (ADACEL) 2010-11-18 Completed University of VACCINE 00:00:00 [facility] HEPATITIS A 2004-03-02 Completed University of 00:00:00 [facility] HEPATITIS A 2004-03-02 Completed University of 00:00:00 [facility] HEPATITIS A 2004-03-02 Completed University of 00:00:00 [facility] HEPATITIS A 2004-03-02 Completed University of 00:00:00 [facility] HEPATITIS A 2004-03-02 Completed University of 00:00:00 [facility] HEPATITIS A 2004-03-02 Completed University of 00:00:00 [facility] HEPATITIS A 2004-03-02 Completed University of 00:00:00 [facility] HEPATITIS A 2004-03-02 Completed University of 00:00:00 [facility] HEPATITIS A 2003-08-01 Completed University of 00:00:00 [facility] HEPATITIS A 2003-08-01 Completed University of 00:00:00 [facility] HEPATITIS A 2003-08-01 Completed University of 00:00:00 [facility] HEPATITIS A 2003-08-01 Completed University of 00:00:00 [facility] HEPATITIS A 2003-08-01 Completed University of 00:00:00 [facility] HEPATITIS A 2003-08-01 Completed University of 00:00:00 [facility] HEPATITIS A 2003-08-01 Completed University of 00:00:00 [facility] HEPATITIS A 2003-08-01 Completed University of 00:00:00 [facility] Pneumococcal 2001-10-04 Completed University o f Polysaccharide, 00:00:00 [place] [facility] PPSV23 (PNEUMOVAX) Branch PPD (TB) 2001-10-04 Completed University of 00:00:00 [facility] Pneumococcal 2001-10-04 Completed University o f Polysaccharide, 00:00:00 [place] [facility] PPSV23 (PNEUMOVAX) Branch PPD (TB) 2001-10-04 Completed University of 00:00:00 [facility] Pneumococcal 2001-10-04 Completed University o f Polysaccharide, 00:00:00 [place] [facility] PPSV23 (PNEUMOVAX) Branch PPD (TB) 2001-10-04 Completed University of 00:00:00 [facility] Pneumococcal 2001-10-04 Completed University o f Polysaccharide, 00:00:00 [place] [facility] PPSV23 (PNEUMOVAX) Branch PPD (TB) 2001-10-04 Completed University of 00:00:00 [facility] Pneumococcal 2001-10-04 Completed University o f Polysaccharide, 00:00:00 [place] [facility] PPSV23 (PNEUMOVAX) Branch PPD (TB) 2001-10-04 Completed University of 00:00:00 [facility] Pneumococcal 2001-10-04 Completed University o f Polysaccharide, 00:00:00 [place] [facility] PPSV23 (PNEUMOVAX) Branch PPD (TB) 2001-10-04 Completed University of 00:00:00 [facility] Pneumococcal 2001-10-04 Completed University o f Polysaccharide, 00:00:00 [place] [facility] PPSV23 (PNEUMOVAX) Branch PPD (TB) 2001-10-04 Completed University of 00:00:00 [facility] Pneumococcal 2001-10-04 Completed University o f Polysaccharide, 00:00:00 [place] [facility] PPSV23 (PNEUMOVAX) Branch PPD (TB) 2001-10-04 Completed University of 00:00:00 [facility] Vital Signs Vital Name Observation Time Observation Value Comments Source Systolic blood 2022-02-16 21:41:00 169 mm[Hg] Univer sity of pressure [facility] Diastolic blood 2022-02-16 21:41:00 86 mm[Hg] Unive rsity of [facility] Heart rate 2022-02-16 21:41:00 51 /min [facility] Body temperature 2022-02-16 21:41:00 36.56 Amina [facility] ersity [facility] Respiratory rate 2022-02-16 21:41:00 17 /min [facility] Oxygen saturation in 2022-02-16 21:41:00 98 /min [facility] Arterial blood by [facility] Pulse oximetry Branch Body height 2022-02-11 16:02:00 162.6 cm [facility] Body weight 2022-02-11 16:02:00 79.379 kg [facility] BMI 2022-02-11 16:02:00 30.04 kg/m2 [facility] Systolic blood 2021-11-20 13:47:00 165 mm[Hg] Univer sity of pressure [facility] Diastolic blood 2021-11-20 13:47:00 83 mm[Hg] Unive rsity of [facility] Heart rate 2021-11-20 13:47:00 58 /min [facility] Body temperature 2021-11-20 13:42:00 36.39 Amina Univ ersity of [facility] Respiratory rate 2021-11-20 13:42:00 16 /min Univ ersity of [facility] Body height 2021-11-20 13:42:00 162.6 cm Universi ty of [place] [facility] [place] Body weight 2021-11-20 13:42:00 84.369 kg Universi ty of [facility] BMI 2021-11-20 13:42:00 31.93 kg/m2 Universi ty of [facility] Systolic blood 2021-07-14 15:18:00 142 mm[Hg] [facility] [...] 15:23:00 167 mm[Hg] Univer sity of pressure [facility] Diastolic blood 2022-03-05 15:23:00 105 mm[Hg] Unive rsity of pressure [facility] Heart rate 2022-03-05 15:23:00 49 /min Universi ty of [facility] Body temperature 2022-03-05 15:18:00 36.67 Amina [facility] Respiratory rate 2022-03-05 15:18:00 18 /min Univ ersity of [facility] Body height 2022-03-05 15:18:00 162.6 cm Universi ty of [facility] Body weight 2022-03-05 15:18:00 74.707 kg Universi ty of [facility] BMI 2022-03-05 15:18:00 28.27 kg/m2 Universi ty of [facility] Oxygen saturation in 2022-02-16 21:41:00 98 /min [facility] Arterial blood by [facility] Pulse oximetry Branch Systolic blood 2020-12-08 15:48:00 125 mm[Hg] [facility] 2020-12-08 15:48:00 76 mm[Hg] [facility] pressure Heart rate 2020-12-08 15:48:00 64 /min [facility] Body temperature 2020-12-08 15:48:00 36.61 Amina [facility] Respiratory rate 2020-12-08 15:48:00 17 /min [facility] Body height 2020-12-08 15:48:00 162.6 cm [facility] Body weight 2020-12-08 15:48:00 98.884 kg [facility] BMI 2020-12-08 15:48:00 37.42 kg/m2 [facility] Oxygen saturation in 2020-12-08 15:48:00 97 /min [facility] Arterial blood by Pulse oximetry Respitory Rate 2020-08-30 13:00:00 [facility] [place] Systolic (mm Hg) 2020-08-30 13:00:00 [facility] Diastolic (mm Hg) 2020-08-30 13:00:00 [facility] [place] Systolic (mm Hg) 2020-08-30 11:00:00 [facility] Diastolic (mm Hg) 2020-08-30 11:00:00 [facility] [place] Temperature Oral (F) 2020-08-30 11:00:00 98.4 F [facility] [place] Respitory Rate 2020-08-30 11:00:00 [facility] Respitory Rate 2020-08-30 10:00:00 [facility] Systolic (mm Hg) 2020-08-30 10:00:00 [facility] [place] Diastolic (mm Hg) 2020-08-30 10:00:00 Mem [facility] Temperature Oral (F) 2020-08-30 00:00:00 96.9 F [facility] [place] Temperature Oral (F) 2020-08-29 11:26:00 97.6 F [facility] Height 2020-08-29 10:30:00 162.56 cm [facility] Weight 2020-08-29 10:30:00 [facility] BMI Calculated 2020-08-29 10:30:00 [facility] [place] Procedures Procedure Date / Time Performing Clinician Source Performed SARS-COV-2 COVID-19 2022-03-05 16:09:27 [facility] DIMITRIS-SUCROSE VACCINE 12 Medical Branch YRS+, BIVALENT 0.3ML, IM, (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) FLU 2022-03-05 16:09:27 [facility] [place] VACC(),65+YR,0.5 Medica l Branch ML,IM,ADJUVANTED,QUAD(FLUA D) MAGNESIUM 2022-02-15 09:41:00 Radha Sofia [facility] BASIC METABOLIC PANEL (NA, 2022-02-15 09:41:00 Radha [facility] K, CL, CO2, GLUCOSE, BUN, Medica l Branch CREATININE, CA) CBC WITH DIFF 2022-02-15 09:41:00 Radha [facility] N-TERMINAL PRO-BNP 2022-02-15 09:41:00 Radha Sofia [facility] CBC WITH DIFF 2022-02-15 09:41:00 Sofia Garcia [facility] BASIC METABOLIC PANEL (NA, 2022-02-15 09:41:00 Sofia Garcia [facility] K, CL, CO2, GLUCOSE, BUN, Medica l Branch CREATININE, CA) MAGNESIUM 2022-02-15 09:41:00 Radha [facility] N-TERMINAL PRO-BNP 2022-02-15 09:41:00 Radha Sofia [facility] BASIC METABOLIC PANEL (NA, 2022-02-13 09:40:00 Sofia Garcia [facility] K, CL, CO2, GLUCOSE, BUN, Medica l Branch CREATININE, CA) CBC WITH DIFF 2022-02-13 09:40:00 Radha Sofia [facility] BASIC METABOLIC PANEL (NA, 2022-02-13 09:40:00 Sofia Garcia [facility] K, CL, CO2, GLUCOSE, BUN, Medica l Branch CREATININE, CA) CBC WITH DIFF 2022-02-13 09:40:00 Radha [facility] TROPONIN I 2022-02-11 23:41:00 Radha [facility] N-TERMINAL PRO-BNP 2022-02-11 23:41:00 [facility] 2022-02-11 23:41[facility]00 [facility] 2022-02-11 23:41:00 Sofia Garcia [facility] HB ECG ROUTINE & RHYTHM 2022-02-11 22:15:36 [facility] (TTE) 2022-02-11 21:26:50 [facility] 2022-02-11 21:26:50 [facility] W 2022-02-11 07:45:43 Miguelangel [facility] CONTRAST [facility] CT ABDOMEN PELVIS W 2022-02-11 07:45:43 Miguelangel Reilly [facility] CONTRAST [facility] RAPID INFLUENZA A/B 2022-02-11 06:54:[address] [facility] RAPID INFLUENZA A/B 2022-02-11 06:54:[address] [facility] URINALYSIS 2022-02-11 06:45:00 Reilly Means [facility] URINE CULTURE 2022-02-11 06:45:00 Reilly Means [facility] URINALYSIS 2022-02-11 06:45:00 Reilly Means [facility] URINE CULTURE 2022-02-11 06:45:00 Reilly Means [facility] HB ECG ROUTINE & RHYTHM 2022-02-11 05:22:08 Reilly Means [facility] HB ECG ROUTINE & RHYTHM 2022-02-11 05:22:08 [facility] [facility] BLOOD CULTURE SCREEN 2022-02-11 04:58:00 [facility] TROPONIN I 2022-02-11 04:58:00 Reilly Means [facility] COMP. METABOLIC PANEL 2022-02-11 04:58:00 Reilly Means [facility] ([id number]) [facility] CBC WITH DIFF 2022-02-11 04:58:00 Means, Reilly [facility] PROTHROMBIN TIME / INR 2022-02-11 04:58:00 Reilly Means [facility] ACTIVATED PARTIAL THRMPLAS 2022-02-11 04:58:00 Reilly Means [facility] N-TERMINAL PRO-BNP 2022-02-11 04:58:00 Reilly Means [facility] LACTIC ACID WHOLE BLOOD 2022-02-11 04:58:00 Reilly Means [facility] COVID-19 (ID NOW RAPID 2022-02-11 04:58:00 Reilly Means [facility] TESTING) Medical Branch LAB ONLY COVID 2022-02-11 04:58:00 Reilly Means [facility] CBC WITH DIFF 2022-02-11 04:58:00 Reilly Means [facility] ACTIVATED PARTIAL THRMPLAS 2022-02-11 04:58:00 Reilly Means [facility] PROTHROMBIN TIME / INR 2022-02-11 04:58:00 Reilly Means [facility] COVID-19 (ID NOW RAPID 2022-02-11 04:58:00 Reilly Means [facility] TESTING) Medical Branch COMP. METABOLIC PANEL 2022-02-11 04:58[facility]00 [id number] TROPONIN I 2022-02-11 04:58:00 Reilly Means [facility] N-TERMINAL PRO-BNP 2022-02-11 04:58:00 Reilly Means [facility] BLOOD CULTURE SCREEN 2022-02-11 04:58:00 Reilly [facility] LACTIC ACID WHOLE BLOOD 2022-02-11 04:58:00 Reilly Means [facility] LAB ONLY COVID 2022-02-11 04:58:00 Reilly Means [facility] XR CHEST 1 VW 2022-02-11 04:27:42 Reilly Means [facility] XR CHEST 1 VW 2022-02-11 04:27:42 Reilly Means [facility] HOSPITAL ADMISSION 2022-02-10 05:01:00 Doctor Unassigned, [facility] [place] [facility] HOSPITAL ADMISSION 2022-02-10 05:01:00 Doctor Unassigned, [facility] ECG 12-LEAD 2021-07-14 15:14:00 Elan Lira [facility] [id number] 2021-06-17 00:00:00 GRACEA [facility] GASTROINTESTINAL PANEL 2020-12-08 22:21:00 [facility] XR ABDOMEN 1 VW 2020-12-08 18:06:32 Eliseo Arce spital OR [place] < 1 HOUR 2020-09-05 22:39:00 Eliseo Arce spital SURGICAL PATHOLOGY REQUEST 2020-09-05 21:54:00 Eliseo Arce [facility] XR CHEST 1 VW PORTABLE 2020-09-05 19:55:00 Eliseo Arce [facility] DISCHARGE PATIENT 2020-09-05 17:27:55 Lucas Harris [facility] UT AN ELECTIVE 2020-09-05 16:47:23 [facility]GD, INTRAOPERATIVE 2020-09-05 16:27[facility]00 [facility] 2020-09-05 15:04:00 [facility] TIME (PTT) M. PROTHROMBIN TIME WITH INR 2020-09-05 15:04:00 [facility] M. Plan of Care Planned Activity Planned Date Details Comments Source Future Scheduled 2022-03-25 SHINGLES VACCINES (1 Met [facility] Test 14:48:42 of 2) [code = SHINGLES VACCINES (1 of 2)] Future Scheduled 2022-03-25 BREAST CANCER [facility] Test 14:48:42 SCREENING [code = BREAST CANCER SCREENING] Future Scheduled 2022-03-25 COLONOSCOPY SCREENING [facility] Test 14:48:42 [code = COLONOSCOPY SCREENING] Future Scheduled 2022-03-25 HEPATITIS B VACCINES Met [facility] Test 14:48:42 (1 of 3 - Risk 3-dose series) [code = HEPATITIS B VACCINES (1 of 3 - Risk 3-dose series)] Future Scheduled 2022-03-25 COVID-19 VACCINE (3 - Me [facility] Test 14:48:42 Booster for Pfizer series) [code = COVID-19 VACCINE (3 - Booster for Pfizer series)] Future Scheduled 2022-03-25 65+ [facility]AL [facility] 14:48[facility]42 VACCINE (4 - PPSV23 if available, else PCV20) [code = 65+ PNEUMOCOCCAL VACCINE (4 - PPSV23 if available, else PCV20)] Future Scheduled 2022-03-25 INFLUENZA VACCINE Method [facility] Test 14:48:42 [code = INFLUENZA VACCINE] Future Scheduled 2022-03-25 SHINGLES VACCINES (1 Met [facility] Test 14:48:42 of 2) [code = SHINGLES VACCINES (1 of 2)] Future Scheduled 2022-03-25 BREAST CANCER [facility] Test 14:48:42 SCREENING [code = BREAST CANCER SCREENING] Future Scheduled 2022-03-25 COLONOSCOPY SCREENING [facility] Test 14:48:42 [code = COLONOSCOPY SCREENING] Future Scheduled 2022-03-25 HEPATITIS B VACCINES Met [facility] Test 14:48:42 (1 of 3 - Risk 3-dose series) [code = HEPATITIS B VACCINES (1 of 3 - Risk 3-dose series)] Future Scheduled 2022-03-25 COVID-19 VACCINE (3 - [facility] Test 14:48:42 Booster for Pfizer series) [code = COVID-19 VACCINE (3 - Booster for Pfizer series)] Future Scheduled 2022-03-25 65+ [facility] 14:48:42 VACCINE (4 - PPSV23 if available, else PCV20) [code = 65+ PNEUMOCOCCAL VACCINE (4 - PPSV23 if available, else PCV20)] Future Scheduled 2022-03-25 INFLUENZA VACCINE Method [facility] Test 14:48:42 [code = INFLUENZA VACCINE] Future Scheduled 2022-03-25 SHINGLES VACCINES (1 Met [facility] Test 14:48:42 of 2) [code = SHINGLES VACCINES (1 of 2)] Future Scheduled 2022-03-25 BREAST CANCER [facility] Test 14:48:42 SCREENING [code = BREAST CANCER SCREENING] Future Scheduled 2022-03-25 COLONOSCOPY SCREENING Me [facility] Test 14:48:42 [code = COLONOSCOPY SCREENING] Future Scheduled 2022-03-25 HEPATITIS B VACCINES Met [facility] Test 14:48:42 (1 of 3 - Risk 3-dose series) [code = HEPATITIS B VACCINES (1 of 3 - Risk 3-dose series)] Future Scheduled 2022-03-25 COVID-19 VACCINE (3 - Me [facility] Test 14:48:42 Booster for Pfizer series) [code = COVID-19 VACCINE (3 - Booster for Pfizer series)] Future Scheduled 2022-03-25 65+ [facility] 14:48:42 VACCINE (4 - PPSV23 if available, else PCV20) [code = 65+ PNEUMOCOCCAL VACCINE (4 - PPSV23 if available, else PCV20)] Future Scheduled 2022-03-25 INFLUENZA VACCINE Method [facility] Test 14:48:42 [code = INFLUENZA VACCINE] Future Scheduled 2022-03-25 SHINGLES VACCINES (1 Met [facility] Test 14:48:42 of 2) [code = SHINGLES VACCINES (1 of 2)] Future Scheduled 2022-03-25 [facility] 14:48:42 SCREENING [code = BREAST CANCER SCREENING] Future Scheduled 2022-03-25 COLONOSCOPY SCREENING [facility] Test 14:48:42 [code = COLONOSCOPY SCREENING] Future Scheduled 2022-03-25 HEPATITIS B VACCINES Met [facility] Test 14:48:42 (1 of 3 - Risk 3-dose series) [code = HEPATITIS B VACCINES (1 of 3 - Risk 3-dose series)] Future Scheduled 2022-03-25 COVID-19 VACCINE (3 - Me [facility] Test 14:48:42 Booster for [...] Future Scheduled 2022-03-25 SHINGLES VACCINES (1 Met [facility] Test 14:48:42 of 2) [code = SHINGLES VACCINES (1 of 2)] Future Scheduled 2022-03-25 BREAST CANCER [facility] Test 14:48:42 SCREENING [code = BREAST CANCER SCREENING] Future Scheduled 2022-03-25 COLONOSCOPY SCREENING [facility] Test 14:48:42 [code = COLONOSCOPY SCREENING] Future Scheduled 2022-03-25 HEPATITIS B VACCINES Met [facility] Test 14:48:42 (1 of 3 - Risk 3-dose series) [code = HEPATITIS B VACCINES (1 of 3 - Risk 3-dose series)] Future Scheduled 2022-03-25 COVID-19 VACCINE (3 - Me [facility] Test 14:48:42 Booster for Pfizer series) [code = COVID-19 VACCINE (3 - Booster for Pfizer series)] Future Scheduled 2022-03-25 65+ PNEUMOCOCCAL [facility] Test 14:48:42 VACCINE (4 - PPSV23 if available, else PCV20) [code = 65+ PNEUMOCOCCAL VACCINE (4 - PPSV23 if available, else PCV20)] Future Scheduled 2022-03-25 INFLUENZA VACCINE Method [facility] Test 14:48:42 [code = INFLUENZA VACCINE] Future Scheduled 2022-03-25 SHINGLES VACCINES (1 Met [facility] Test 14:48:42 of 2) [code = SHINGLES VACCINES (1 of 2)] Future Scheduled 2022-03-25 BREAST CANCER [facility] Test 14:48:42 SCREENING [code = BREAST CANCER SCREENING] Future Scheduled 2022-03-25 COLONOSCOPY SCREENING [facility] Test 14:48:42 [code = COLONOSCOPY SCREENING] Future Scheduled 2022-03-25 HEPATITIS B VACCINES Met [facility] Test 14:48:42 (1 of 3 - Risk 3-dose series) [code = HEPATITIS B VACCINES (1 of 3 - Risk 3-dose series)] Future Scheduled 2022-03-25 COVID-19 VACCINE (3 - Me [facility] Test 14:48:42 Booster for Pfizer series) [code = COVID-19 VACCINE (3 - Booster for Pfizer series)] Future Scheduled 2022-03-25 65+ [facility] 14:48:42 VACCINE (4 - PPSV23 if available, else PCV20) [code = 65+ PNEUMOCOCCAL VACCINE (4 - PPSV23 if available, else PCV20)] Future Scheduled 2022-03-25 INFLUENZA VACCINE Method [facility] Test 14:48:42 [code = INFLUENZA VACCINE] Future Scheduled 2022-03-25 SHINGLES VACCINES (1 Met [facility] Test 14:48:42 of 2) [code = SHINGLES VACCINES (1 of 2)] Future Scheduled 2022-03-25 BREAST CANCER [facility] Test 14:48:42 SCREENING [code = BREAST CANCER SCREENING] Future Scheduled 2022-03-25 COLONOSCOPY SCREENING [facility] Test 14:48:42 [code = COLONOSCOPY SCREENING] Future Scheduled 2022-03-25 HEPATITIS B VACCINES Met [facility] Test 14:48:42 (1 of 3 - Risk 3-dose series) [code = HEPATITIS B VACCINES (1 of 3 - Risk 3-dose series)] Future Scheduled 2022-03-25 COVID-19 VACCINE (3 - [facility] Test 14:48:42 Booster for Pfizer series) [code = COVID-19 VACCINE (3 - Booster for Pfizer series)] Future Scheduled 2022-03-25 65+ PNEUMOCOCCAL [facility] Test 14:48:42 VACCINE (4 - PPSV23 if available, else PCV20) [code = 65+ PNEUMOCOCCAL VACCINE (4 - PPSV23 if available, else PCV20)] Future Scheduled 2022-03-25 INFLUENZA VACCINE Method [facility] Test 14:48:42 [code = INFLUENZA VACCINE] Future Scheduled 2022-03-04 SHINGLES VACCINES (1 Met [facility] Test 14:03:57 of 2) [code = SHINGLES VACCINES (1 of 2)] Future Scheduled 2022-03-04 BREAST CANCER [facility] Test 14:03:57 SCREENING [code = BREAST CANCER SCREENING] Future Scheduled 2022-03-04 COLONOSCOPY SCREENING [facility] Test 14:03:57 [code = COLONOSCOPY SCREENING] Future Scheduled 2022-03-04 HEPATITIS B VACCINES Met [facility] Test 14:03:57 (1 of 3 - Risk 3-dose series) [code = HEPATITIS B VACCINES (1 of 3 - Risk 3-dose series)] Future Scheduled 2022-03-04 COVID-19 VACCINE (3 - [facility] Test 14:03:57 Booster for Pfizer series) [code = COVID-19 VACCINE (3 - Booster for Pfizer series)] Future Scheduled 2022-03-04 65+ [facility]:03:57 VACCINE (4 - PPSV23 if available, else PCV20) [code = 65+ PNEUMOCOCCAL VACCINE (4 - PPSV23 if available, else PCV20)] Future Scheduled 2022-03-04 INFLUENZA VACCINE Method [facility] Test 14:03:57 [code = INFLUENZA VACCINE] Future Scheduled 2022-03-04 SHINGLES VACCINES (1 Met [facility] Test 14:03:57 of 2) [code = SHINGLES VACCINES (1 of 2)] Future Scheduled 2022-03-04 BREAST CANCER [facility] Test 14:03:57 SCREENING [code = BREAST CANCER SCREENING] Future Scheduled 2022-03-04 COLONOSCOPY SCREENING [facility] Test 14:03:57 [code = COLONOSCOPY SCREENING] Future Scheduled 2022-03-04 HEPATITIS B VACCINES Met [facility] Test 14:03:57 (1 of 3 - Risk 3-dose series) [code = HEPATITIS B VACCINES (1 of 3 - Risk 3-dose series)] Future Scheduled 2022-03-04 COVID-19 VACCINE (3 - [facility] Test 14:03:57 Booster for Pfizer series) [code = COVID-19 VACCINE (3 - Booster for Pfizer series)] Future Scheduled 2022-03-04 65+ PNEUMOCOCCAL [facility] Test 14:03:57 VACCINE (4 - PPSV23 if available, else PCV20) [code = 65+ PNEUMOCOCCAL VACCINE (4 - PPSV23 if available, else PCV20)] Future Scheduled 2022-03-04 INFLUENZA VACCINE Method [facility] Test 14:03:57 [code = INFLUENZA VACCINE] Future Scheduled 2022-03-04 SHINGLES VACCINES (1 Met [facility] Test 14:03:57 of 2) [code = SHINGLES VACCINES (1 of 2)] Future Scheduled 2022-03-04 BREAST CANCER [facility] Test 14:03:57 SCREENING [code = BREAST CANCER SCREENING] Future Scheduled 2022-03-04 COLONOSCOPY SCREENING [facility] Test 14:03:57 [code = COLONOSCOPY SCREENING] Future Scheduled 2022-03-04 HEPATITIS B VACCINES Met [facility] Test 14:03:57 (1 of 3 - Risk 3-dose series) [code = HEPATITIS B VACCINES (1 of 3 - Risk 3-dose series)] Future Scheduled 2022-03-04 COVID-19 VACCINE (3 - [facility] Test 14:03:57 Booster for Pfizer series) [code = COVID-19 VACCINE (3 - Booster for Pfizer series)] Future Scheduled 2022-03-04 65+ [facility] 14:03:57 VACCINE (4 - PPSV23 if available, else PCV20) [code = 65+ PNEUMOCOCCAL VACCINE (4 - PPSV23 if available, else PCV20)] Future Scheduled 2022-03-04 INFLUENZA VACCINE Method [facility] Test 14:03:57 [code = INFLUENZA VACCINE] Future Scheduled 2022-03-04 SHINGLES VACCINES (1 Met [facility] Test 14:03:57 of 2) [code = SHINGLES VACCINES (1 of 2)] Future Scheduled 2022-03-04 BREAST CANCER [facility] Test 14:03:57 SCREENING [code = BREAST CANCER SCREENING] Future Scheduled 2022-03-04 COLONOSCOPY SCREENING [facility] Test 14:03:57 [code = COLONOSCOPY SCREENING] Future Scheduled 2022-03-04 HEPATITIS B VACCINES Met [facility] Test 14:03:57 (1 of 3 - Risk 3-dose series) [code = HEPATITIS B VACCINES (1 of 3 - Risk 3-dose series)] Future Scheduled 2022-03-04 COVID-19 VACCINE (3 - [facility] Test 14:03:57 Booster for Pfizer series) [code = COVID-19 VACCINE (3 - Booster for Pfizer series)] Future Scheduled 2022-03-04 65+ PNEUMOCOCCAL [facility] Test 14:03:57 VACCINE (4 - PPSV23 if available, else PCV20) [code = 65+ PNEUMOCOCCAL VACCINE (4 - PPSV23 if available, else PCV20)] Future Scheduled 2022-03-04 INFLUENZA VACCINE Method [facility] Test 14:03:57 [code = INFLUENZA VACCINE] Future Scheduled 2022-02-11 SHINGLES VACCINES (1 Met [facility] Test 13:39:12 of 2) [code = SHINGLES VACCINES (1 of 2)] Future Scheduled 2022-02-11 BREAST CANCER [facility] Test 13:39:12 SCREENING [code = BREAST CANCER SCREENING] Future Scheduled 2022-02-11 COLONOSCOPY SCREENING [facility] Test 13:39:12 [code = COLONOSCOPY SCREENING] Future Scheduled 2022-02-11 HEPATITIS B VACCINES Met [facility] Test 13:39:12 (1 of 3 - Risk 3-dose series) [code = HEPATITIS B VACCINES (1 of 3 - Risk 3-dose series)] Future Scheduled 2022-02-11 COVID-19 VACCINE (3 - Me [facility] Test 13:39:12 Booster for Pfizer series) [code = COVID-19 VACCINE (3 - Booster for Pfizer series)] Future Scheduled 2022-02-11 65+ PNEUMOCOCCAL [facility] Test 13:39:12 VACCINE (4 - PPSV23 or PCV20) [code = 65+ PNEUMOCOCCAL VACCINE (4 - PPSV23 or PCV20)] Future Scheduled 2022-02-11 INFLUENZA VACCINE Method [facility] Test 13:39:12 [code = INFLUENZA VACCINE] Future Scheduled 2022-01-29 SHINGLES VACCINES (1 Met [facility] Test 14:07:20 of 2) [code = SHINGLES VACCINES (1 of 2)] Future Scheduled 2022-01-29 BREAST CANCER [facility] Test 14:07:20 SCREENING [code = BREAST CANCER SCREENING] Future Scheduled 2022-01-29 COLONOSCOPY SCREENING [facility] Test 14:07:20 [code = COLONOSCOPY SCREENING] Future Scheduled 2022-01-29 HEPATITIS B VACCINES Met [facility] Test 14:07:20 (1 of 3 - Risk 3-dose series) [code = HEPATITIS B VACCINES (1 of 3 - Risk 3-dose series)] Future Scheduled 2022-01-29 COVID-19 VACCINE (3 - [facility] Test 14:07:20 Booster for Pfizer series) [code = COVID-19 VACCINE (3 - Booster for Pfizer series)] Future Scheduled 2022-01-29 65+ PNEUMOCOCCAL [facility] Test 14:07:20 VACCINE (4 - PPSV23 or PCV20) [code = 65+ PNEUMOCOCCAL VACCINE (4 - PPSV23 or PCV20)] Future Scheduled 2022-01-29 INFLUENZA VACCINE Method [facility] Test 14:07:20 [code = INFLUENZA VACCINE] Future Scheduled 2022-01-29 SHINGLES VACCINES (1 Met [facility] Test 14:07:20 of 2) [code = SHINGLES VACCINES (1 of 2)] Future Scheduled 2022-01-29 BREAST CANCER [facility] Test 14:07:20 SCREENING [code = BREAST CANCER SCREENING] Future Scheduled 2022-01-29 COLONOSCOPY SCREENING [facility] Test 14:07:20 [code = COLONOSCOPY SCREENING] Future Scheduled 2022-01-29 HEPATITIS B VACCINES Met [facility] Test 14:07:20 (1 of 3 - Risk 3-dose series) [code = HEPATITIS B VACCINES (1 of 3 - Risk 3-dose series)] Future Scheduled 2022-01-29 COVID-19 VACCINE (3 - Me [facility] Test 14:07:20 Booster for Pfizer series) [code = COVID-19 VACCINE (3 - Booster for Pfizer series)] Future Scheduled 2022-01-29 65+ [facility] 14:07:20 VACCINE (4 - PPSV23 or PCV20) [code = 65+ PNEUMOCOCCAL VACCINE (4 - PPSV23 or PCV20)] Future Scheduled 2022-01-29 INFLUENZA VACCINE Method [facility] Test 14:07:20 [code = INFLUENZA VACCINE] Future Scheduled 2022-01-29 SHINGLES VACCINES (1 Met [facility] Test 14:07:20 of 2) [code = SHINGLES VACCINES (1 of 2)] Future Scheduled 2022-01-29 BREAST CANCER [facility] Test 14:07:20 SCREENING [code = BREAST CANCER SCREENING] Future Scheduled 2022-01-29 COLONOSCOPY SCREENING [facility] Test 14:07:20 [code = COLONOSCOPY SCREENING] Future Scheduled 2022-01-29 HEPATITIS B VACCINES Met [facility] Test 14:07:20 (1 of 3 - Risk 3-dose series) [code = HEPATITIS B VACCINES (1 of 3 - Risk 3-dose series)] Future Scheduled 2022-01-29 COVID-19 VACCINE (3 - [facility] Test 14:07:20 Booster for Pfizer series) [code = COVID-19 VACCINE (3 - Booster for Pfizer series)] Future Scheduled 2022-01-29 65+ [facility] 14:07:20 VACCINE (4 - PPSV23 or PCV20) [code = 65+ PNEUMOCOCCAL VACCINE (4 - PPSV23 or PCV20)] Future Scheduled 2022-01-29 INFLUENZA VACCINE Method [facility] Test 14:07:20 [code = INFLUENZA VACCINE] Future Scheduled 2022-01-29 SHINGLES VACCINES (1 Met [facility] Test 14:07:20 of 2) [code = SHINGLES VACCINES (1 of 2)] Future Scheduled 2022-01-29 BREAST CANCER [facility] Test 14:07:20 SCREENING [code = BREAST CANCER SCREENING] Future Scheduled 2022-01-29 COLONOSCOPY SCREENING [facility] Test 14:07:20 [code = COLONOSCOPY SCREENING] Future Scheduled 2022-01-29 HEPATITIS B VACCINES Met [facility] Test 14:07:20 (1 of 3 - Risk 3-dose series) [code = HEPATITIS B VACCINES (1 of 3 - Risk 3-dose series)] Future Scheduled 2022-01-29 COVID-19 VACCINE (3 - [facility] Test 14:07:20 Booster for Pfizer series) [code = COVID-19 VACCINE (3 - Booster for Pfizer series)] Future Scheduled 2022-01-29 65+ PNEUMOCOCCAL [facility] Test 14:07:20 VACCINE (4 - PPSV23 or PCV20) [code = 65+ PNEUMOCOCCAL VACCINE (4 - PPSV23 or PCV20)] Future Scheduled 2022-01-29 INFLUENZA VACCINE Method [facility] Test 14:07:20 [code = INFLUENZA VACCINE] Future Scheduled 2022-01-20 SHINGLES VACCINES (1 Met [facility] Test 06:12:34 of 2) [code = SHINGLES VACCINES (1 of 2)] Future Scheduled 2022-01-20 Screening for [facility] Test 06:12:34 malignant neoplasm of cervix (procedure) [code = [id number]] Future Scheduled 2022-01-20 BREAST CANCER [facility] Test 06:12:34 SCREENING [code = BREAST CANCER SCREENING] Future Scheduled 2022-01-20 COLONOSCOPY SCREENING [facility] Test 06:12:34 [code = COLONOSCOPY SCREENING] Future Scheduled 2022-01-20 HEPATITIS B VACCINES Met [facility] Test 06:12:34 (1 of 3 - Risk 3-dose series) [code = HEPATITIS B VACCINES (1 of 3 - Risk 3-dose series)] Future Scheduled 2022-01-20 COVID-19 VACCINE (3 - [facility] Test 06:12:34 Booster for Pfizer series) [code = COVID-19 VACCINE (3 - Booster for Pfizer series)] Future Scheduled 2022-01-20 65+ PNEUMOCOCCAL [facility] Test 06:12:34 VACCINE (4 - PPSV23 or PCV20) [code = 65+ PNEUMOCOCCAL VACCINE (4 - PPSV23 or PCV20)] Future Scheduled 2022-01-20 INFLUENZA VACCINE Method [facility] Test 06:12:34 [code = INFLUENZA VACCINE] Future Scheduled 2022-01-16 SHINGLES VACCINES (1 Met [facility] Test 12:09:25 of 2) [code = SHINGLES VACCINES (1 of 2)] Future Scheduled 2022-01-16 Screening for [facility] Test 12:09:25 malignant neoplasm of cervix (procedure) [code = [id number]] Future Scheduled 2022-01-16 BREAST CANCER [facility] Test 12:09:25 SCREENING [code = BREAST CANCER SCREENING] Future Scheduled 2022-01-16 COLONOSCOPY SCREENING [facility] Test 12:09:25 [code = COLONOSCOPY SCREENING] Future Scheduled 2022-01-16 HEPATITIS B VACCINES Met [facility] Test 12:09:25 (1 of 3 - Risk 3-dose series) [code = HEPATITIS B VACCINES (1 of 3 - Risk 3-dose series)] Future Scheduled 2022-01-16 COVID-19 VACCINE (3 - [facility] Test 12:09:25 Booster for Pfizer series) [code = COVID-19 VACCINE (3 - Booster for Pfizer series)] Future Scheduled 2022-01-16 65+ [facility] 12:09:25 VACCINE (4 - PPSV23 or PCV20) [code = 65+ PNEUMOCOCCAL VACCINE (4 - PPSV23 or PCV20)] Future Scheduled 2022-01-16 INFLUENZA VACCINE Method [facility] Test 12:09:25 [code = INFLUENZA VACCINE] Future Scheduled 2022-01-14 SHINGLES VACCINES (1 Met [facility] Test 04:11:46 of 2) [code = SHINGLES VACCINES (1 of 2)] Future Scheduled 2022-01-14 [facility] [facility] Test 04:11:46 malignant neoplasm of cervix (procedure) [code = 055576118] Future Scheduled 2022-01-14 BREAST CANCER [facility] Test 04:11:46 SCREENING [code = BREAST CANCER SCREENING] Future Scheduled 2022-01-14 COLONOSCOPY SCREENING [facility] Test 04:11:46 [code = COLONOSCOPY SCREENING] Future Scheduled 2022-01-14 HEPATITIS B VACCINES [facility] Test 04:11:46 (1 of 3 - Risk 3-dose series) [code = HEPATITIS B VACCINES (1 of 3 - Risk 3-dose series)] Future Scheduled 2022-01-14 COVID-19 VACCINE (3 - Me [facility] Test 04:11:46 Booster for Pfizer series) [code = COVID-19 VACCINE (3 - Booster for Pfizer series)] Future Scheduled 2022-01-14 65+ PNEUMOCOCCAL [facility] Test 04:11:46 VACCINE (4 - PPSV23 or PCV20) [code = 65+ PNEUMOCOCCAL VACCINE (4 - PPSV23 or PCV20)] Future Scheduled 2022-01-14 INFLUENZA VACCINE Method [facility] Test 04:11:46 [code = INFLUENZA VACCINE] Future Scheduled 2021-08-26 Screening for [facility] Test 13:02:23 malignant neoplasm of cervix (procedure) [code = 400128502] Future Scheduled 2021-08-26 BREAST CANCER [facility] Test 13:02:23 SCREENING [code = BREAST CANCER SCREENING] Future Scheduled 2021-08-26 COLONOSCOPY SCREENING [facility] Test 13:02:23 [code = COLONOSCOPY SCREENING] Future Scheduled 2021-08-26 Screening for [facility] Test 13:02:23 malignant neoplasm of lung (procedure) [code = 929130145] Future Scheduled 2021-08-26 SHINGLES VACCINES (#1) M [facility] Test 13:02:23 [code = SHINGLES VACCINES (#1)] Future Scheduled 2021-08-26 COVID-19 VACCINE (3 - [facility] Test 13:02:23 Pfizer risk 4-dose series) [code = COVID-19 VACCINE (3 - Pfizer risk 4-dose series)] Future Scheduled 2021-08-26 65+ PNEUMOCOCCAL [facility] Test 13:02:23 VACCINE (4 of 4 - PPSV23) [code = 65+ PNEUMOCOCCAL VACCINE (4 of 4 - PPSV23)] Future Scheduled 2021-08-26 INFLUENZA VACCINE [facility] Test 13:02:23 [code = INFLUENZA VACCINE] Encounters Start End Encounter Admission Attending Care Care Encounter Source Date/Time Date/Time Type Type Clinicians Facility Department ID 2022-02-18 Outpatient [facility] [id number] [place] 14:30:[address] [place] [address] 2021-07-14 Outpatient PANKAJ [facility] [id number] [place] 09:33:51 [facility] 2021-06-02 Outpatient HEMATPOUR, [facility] [id number] [place] 13:58:59 [facility] 2021-04-28 Outpatient HEMATPOUR, [facility] [id number] [place] 11:21:22 [facility] 2021-03-20 Emergency [facility] [id number] Univers 16:07:40 ity [facility] 2020-12-12 Outpatient HEMATPOUR, [facility] [id number] [place] 08:16:46 [facility]alt [facility] 2020-10-31 Outpatient HEMATPOUR, [facility] [id number] [place] 09:44:50 [facility]alt [facility] 2020-09-30 Outpatient HEMATPOUR, [facility] [id number] [place] 13:16:03 [facility] 2022-04-07 2022-04-07 Outpatient R UNKNOWN, [facility] [id number] Univers 20:40:00 20:40:00 ATTENDING ity [facility] 2022-04-07 2022-04-07 Telephone Devin, 1.2.840.5 [id number] Univers 00:00:00 00:00:00 Robbi Hairston 91582.1.1 i ty of 3.104.2.7 [place] .3.005605 Medica l .8 [place] 2022-03-05 2022-03-05 National Sales Associate Santiago Cardenas 1.2.840.1 [id number] Univers 13:45:00 14:00:00 Visit [facility] 14877.1.1 ity of 3.104.2.7 [place] .3.701669 Medica l .8 [place] 2022-03-05 2022-03-05 Outpatient R EAST, [facility] [id number] Univers 13:45:00 13:45:00 SANTIAGO ity [facility] 2022-03-05 2022-03-05 Office Ronald, Shelby.2.840.2 [id number] Univers 13:00:00 13:30:00 Visit Santiago 81595.1.1 ity of 3.104.2.7 [place] .3.097779 Medica l .8 [place] 2022-02-26 2022-02-26 Outpatient R [facility] [id number] Univers 08:30:00 08:30:00 SANTIAGO barbosa [facility] 2022-02-26 2022-02-26 Outpatient R [facility] [id number] Univers 08:30:00 08:30:00 SANTIAGO barbosa [facility] 2022-02-17 2022-02-17 Transition Stevo, 1.2.840.1 [id number] Univers 00:00:00 00:00:00 of Care Isaias Maria Elena 68058.1.1 it y of 3.104.2.7 [place] .3.747649 Medica l .8 [place] 2022-02-10 2022-02-16 Inpatient X [facility] [id number] Univers 22:59:00 19:27:00 TOMY ity [facility] 2022-02-10 2022-02-16 Hospital Reilly Means 1.2.840.1 [id number] Univers 22:59:00 19:27:00 Encounter Ofe Shields 66781.1.1 ity of [place].2.7 [place] .3.738605 Medica l .8 [place] 2022-02-11 2022-02-11 Telephone East, 1.2.840.6 [id number] [id number] Univers 00:00:00 00:00:00 Santiago 73836.1.1 ity of 3.104.2.7 [place] .3.235560 Medica l .8 [place] 2022-02-10 2022-02-10 Travel 1.2.840.1 1.2.420.589 [id number] Univers 00:00:00 00:00:00 81897.1.1 350.1.13.10 ity of 3.104.2.7 4.[place].7.3.698 [place] .3.179478 084.8 Medica l .8 [place] 2022-01-30 2022-01-30 Telephone East, 1.2.840.1 [id number] Univers 00:00:00 00:00:00 Santiago 04509.1.1 ity of 3.104.2.7 [place] .3.606694 Medica l .8 Branch 2022-01-06 2022-01-06 Orders Doctor FERMIN 1.2.840.114 [id number] Univers 00:00:00 00:00:00 Only Unassigned, JACKELINE 350.1.13.10 ity of [place] [facility] 4.2.7.2.686 Yomi as [phone] [facility] 009 Branch 2021-12-25 2021-12-25 Orders Doctor FERMIN 1.2.840.114 [id number] Univers 00:00:00 00:00:00 Only Unassigned, JACKELINE 350.1.13.10 ity of [place] [facility] 4.2.7.2.686 Yomi as [id number] [facility] 009 Branch 2021-12-12 2021-12-13 Emergency X Bill GUO [facility] ERT [id number] Univers 23:53:00 01:52:00 ity of [facility] 2021-12-12 2021-12-13 Emergency Bill Guo [facility] 1.2.840.114 [id number] Univers 23:53:00 01:52:00 Kiersten BULLOCK 350.1.13.10 i ty of [place] [id number] [facility] 084 Branch 2021-11-20 2021-11-20 National Sales Associate [facility] UNIVERSIT 1.2.840.114 [id number] Univers 09:45:00 10:00:00 Visit General acute hospital 350.1.13.10 ity of [place] [id number] [facility] 316 Branch 2021-11-20 2021-11-20 Office [facility] 1.2.529.784 [id number] Univers 08:30:00 09:00:00 Visit [facility] 350.1.13.10 i ty of [place] [id number] [facility] 089 Branch 2021-11-20 2021-11-20 Outpatient R EAST, [facility] [id number] Univers 08:30:00 08:30:00 SANTIAGO barbosa [facility] 2021-11-20 2021-11-20 Outpatient R EAST, [facility] [id number] Univers 08:30:00 08:30:00 SANTIAGO barbosa [facility] 2021-11-20 2021-11-20 Outpatient R EAST, [facility] [id number] Univers 08:30:00 08:30:00 SANTIAGO barbosa [facility] 2021-11-20 2021-11-20 Outpatient R EAST, [facility] [id number] Univers 08:30:00 08:30:00 SANTIAGO [facility] 2021-10-24 2021-10-24 Emergency [facility] [id number] Univers 16:27:00 22:26:00 [facility] 2021-10-24 2021-10-24 Emergency [facility] [id number] Univers 16:27:00 22:26:00 CHARITY charlie [facility] 2021-10-24 2021-10-24 Emergency Reilly Means [facility] 1.2.840. 114 [id number] Univers 16:27:00 22:26:00 [facility] 350.1.13.10 ity [facility] 4.2.7.2.686 [facility] [id number] [address] 2021-10-23 2021-10-24 Emergency [facility] [id number] Univers 20:22:00 02:57:00 CHARITY [facility] 2021-10-23 2021-10-24 [facility] 1.2.581.032 [id number] Univers 20:22:00 02:57:00 Charity [facility] 350.1.13.10 ity [facility] 4.2.7.2.686 [facility] [id number] [address] 2021-09-07 2021-09-07 Outpatient R SELF, [facility] [id number] Univers 08:00:00 08:00:00 GADIEL barbosa o clark [facility] 2021-09-07 2021-09-07 Outpatient R [facility], [facility] [id number] Univers 08:00:00 08:00:00 GADIEL barbosa o f [facility] 2021-08-21 2021-08-21 Outpatient R [facility] [id number] Univers 10:45:00 10:45:00 SANTIAGO charlie [facility] 2021-08-21 2021-08-21 National Sales Associate Santiago Cardenas 1.2.840.1 [id number] Univers 10:45:00 10:45:00 Visit [facility] 40478.1.1 ity of 3.104.2.7 [place] .3.979012 Medica l .8 [place] 2021-08-21 2021-08-21 Office [facility], 1.2.840.5 [id number] Univers 08:30:00 09:00:00 Visit Santiago 07046.1.1 ity of 3.104.2.7 [place] .3.523916 Medica l .8 [place] 2021-08-21 2021-08-21 Office [facility], [facility] 1.2.292.102 [id number] Univers 08:30:00 09:00:00 Visit Santiago [facility] 350.1.13.10 i ty of CL[place] 4[place] [id number] [facility] porfirio 089 [place] 2021-08-21 2021-08-21 Outpatient R [facility] [id number] Univers 08:30:00 08:30:00 SANTIAGO barbosa [facility] 2021-08-21 2021-08-21 Travel 1.2.840.1 1.2.014.043 [id number] Univers 00:00:00 00:00:00 77884.1.1 350.1.13.10 ity of 3.104.2.7 4.2.7.3.698 [place] .3.580154 084.8 Medica l .8 [place] 2021-08-14 2021-08-14 Telephone East, 1.2.840.4 [id number] Univers 00:00:00 00:00:00 Santiago 61773.1.1 ity of 3.104.2.7 [place] .3.904522 Medica l .8 Branch 2021-08-13 2021-08-13 [place] Ronald, 1.2.840.1 [id number] Univers 00:00:00 00:00:00 Santiago 51295.1.1 ity of 3.104.2.7 [place] .3.845848 Medica l .8 Branch 2021-08-11 2021-08-11 Outpatient [facility] [id number] Univers 08:00:00 08:00:00 [facility] 2021-08-05 2021-08-05 In[facility] [id number] [facility] 05:24:00 05:24:00 Mike 31 [facility] 2021-07-20 2021-07-20 Outpatient [facility] [id number] [facility] 10:00:00 10:00:00 [facility] 2021-07-14 2021-07-14 Office Pankaj, UTP 6400 1.2.840.114 [id number] [place] 08:45:00 09:34:[address] 350.1.13.58 Health 9.2.7.2.686 [id number] 1 2021-07-09 2021-07-09 Telephone Hematpoliz, UTP 6400 1.2.840.114 [id number] [place] 00:00:00 00:00:[address] 350.1.13.58 Health 9.2.7.2.686 [id number] 1 2021-07-09 2021-07-09 Telephone Hematpoliz, UTP 6400 1.2.840.114 [id number] [place] 00:00:00 00:00:[address] 350.1.13.58 Health 9.2.7.2.686 [id number] 1 2021-07-03 2021-07-03 Outpatient R EAST, [facility] [id number] Univers 08:00:00 08:00:00 [facility] 2021-06-17 2021-06-17 Inpatient WINTER Leal INTE.02 [id number] [facility] 10:56:00 14:36:00 Mike 47 [facility] 2021-06-15 2021-06-15 Outpatient R SELF, [facility] [id number] Univers 10:15:00 11:07:21 GADIEL barbosa o [facility] 2021-06-15 2021-06-15 Outpatient R SELF, [facility] [id number] Univers 10:15:00 10:15:00 GADIEL vogel [facility] 2021-06-15 2021-06-15 Outpatient R SELF, [facility] [id number] Univers 10:15:00 10:15:00 GADIEL rodas [facility] 2021-06-15 2021-06-15 Orders Doctor 1.2.840.8 [id number] Univers 00:00:00 00:00:00 Only Unassigned, 76106.1.1 ity of [place] 3.104.2.7 [place] .3.372221 Medica l .8 [place] 2021-06-15 2021-06-15 Travel 1.2.840.1 1.2.231.848 [id number] Univers 00:00:00 00:00:00 54190.1.1 350.1.13.10 ity of 3.104.2.7 4.2.7.3.698 [place] .3.932366 084.8 Medica l .8 Branch 2021-06-11 2021-06-11 Refill East, UNIVERSIT 1.2.502.742 [id number] Univers 00:00:00 00:00:00 [facility] 350.1.13.10 i ty of CL[place] 4[place].2.[place] [id number] [facility] porfirio 089 Branch 2021-06-11 2021-06-11 Refill East, 1.2.840.9 [id number] Univers 00:00:00 00:00:00 Santiago 46168.1.1 ity of 3.104.2.7 [place] .3.116900 Medica l .8 Branch 2021-06-05 2021-06-05 Outpatient R EAST, [facility] [id number] Univers 09:00:00 09:00:00 SANTIAGO ity of [facility] 2021-06-02 2021-06-02 Telephone East, UNIVERSIT 1.2.840.114 [id number] Univers 00:00:00 00:00:00 Santiago [facility] 350.1.13.[address] [facility] 4.2.7.2.686 [place] [id number] [facility] porfirio 089 [place] 2021-06-02 2021-06-02 Telephone East, 1.2.840.6 [id number] Univers 00:00:00 00:00:00 Santiago 30693.1.1 ity of 3.104.2.7 [place] .3.699348 Medica l .8 [place] 2021-05-29 2021-05-29 Telephone East, 1.2.840.7 [id number] [id number] Univers 00:00:00 00:00:00 Santiago 24842.1.1 ity of 3.104.2.7 [place] .3.920309 Medica l .8 [place] 2021-05-29 2021-05-29 Telephone East, 1.2.840.2 [id number] [id number] Univers 00:00:00 00:00:00 Santiago 73036.1.1 ity of 3.104.2.7 [place] .3.864594 Medica l .8 [place] 2021-05-25 2021-05-25 Outpatient R SELF, [facility] [id number] Univers 08:00:00 08:00:00 GADIEL rodas [facility] 2021-04-29 2021-04-29 Outpatient R LALA, [facility] [id number] Univers 08:00:00 08:00:00 NIKOLAI barbosa of [facility] 2021-04-28 2021-04-28 Telephone Hematpour, [facility] 6400 1.2.840.114 [id number] [place] 00:00:00 00:00:[address] 350.1.13.58 Health 9.2.7.2.686 [id number] 1 2021-04-28 2021-04-28 Telephone Jailyn, 1.2.840.6 [id number] Methodi 00:00:00 00:00:[address] 3.430.2.7 Hospit a .3.469812 l .8 2021-04-28 2021-04-28 Telephone Jailyn, 1.2.840.6 [id number] 21 [id number] Methodi 00:00:00 00:00:[address] 3.430.2.7 Hospit a .3.771239 l .8 2021-03-31 2021-03-31 Orders Carol Ann, 1.2.840.1 [id number] Methodi 00:00:00 00:00:00 Only Sarai Lieberman 16039.1.1 979 s t 3.430.2.7 Hospit a .3.677221 l .8 2021-03-30 2021-03-30 Outpatient Marika KOEHLER [facility] [id number] Univers 08:45:00 08:45:00 GADIEL rodas [facility] 2021-03-24 2021-03-24 Telephone Jailyn, 1.2.840.0 [id number] Methodi 00:00:00 00:00:[address] 3.430.2.7 Hospit a .3.580845 l .8 2021-02-13 2021-02-13 Telephone [facility], 1.2.840.3 [id number] [id number] Univers 00:00:00 00:00:00 Santiago 39511.1.1 [facility] 3.104.2.7 [place] .3.227788 Medica l .8 [place] 2021-01-28 2021-01-28 [facility] [id number] Univers 08:45:00 09:37:00 NIKOLAI barbosa of [facility] 2021-01-28 2021-01-28 Travel 1.2.840.1 1.2.092.602 [id number] Univers 00:00:00 00:00:00 65942.1.1 350.1.13.10 ity of 3.104.2.7 4.[place].7.3.698 [place] .3.388331 084.8 Medica l .8 Branch 2021-01-19 2021-01-19 Telephone Prabhu, 1.2.840.1 [id number] Method 00:00:00 00:00:[address] 3.430.2.7 Hospit a .3.153212 l .8 2021-01-04 2021-01-04 Dmitry Bass, 1.2.840.3 [id number] 696 Univers 00:00:00 00:00:00 (Out) Dagoberto H 73867.1.1 ity of 3.104.2.7 [place] .3.702696 Medica l .8 Branch 2021-01-04 2021-01-04 Dmitry Bass, 1.2.840.2 [id number] 696 Univers 00:00:00 00:00:00 (Out) Dagoberto H 31898.1.1 ity of 3.104.2.7 [place] .3.744528 Medica l .8 Branch 2021-01-03 2021-01-03 Dmitry Bass, 1.2.840.6 [id number] 790 Univers 00:00:00 00:00:00 (Out) Dagoberto H 46251.1.1 ity of 3.104.2.7 [place] .3.484405 Medica l .8 Branch 2021-01-03 2021-01-03 Dmitry Bass, 1.2.840.9 [id number] 790 Univers 00:00:00 00:00:00 (Out) Dagoberto H 24886.1.1 ity of 3.104.2.7 [place] .3.090932 Medica l .8 Branch 2021-01-02 2021-01-02 Outpatient R [facility] [id number] Univers 13:40:00 13:40:00 ity of [facility] 2021-01-02 2021-01-02 Laboratory Cuba Franks 1.2.840.0 [id number] Univers 12:: 12:57:34 Only Lab, [place] 54655.1.1 ity of 3.104.2.7 [place] .3.865753 Medica l .8 [place] 2021-01-02 2021-01-02 Laboratory Cuba Franks 1.2.840.1 [id number] [id number] Univers 12:: 12:57:34 Only Lab, [facility] Fam Pob I 98427.1.1 ity of 3.104.2.7 [place] .3.457991 Medica l .8 [place] 2021-01-02 2021-01-02 Travel 1.2.840.1 1.2.626.592 [id number] 2306 Univers 00:00:00 00:00:00 38674.1.1 350.1.13.10 ity of 3.104.2.7 4.2.7.3.698 [place] .3.781600 084.8 Medica l .8 [place] 2021-01-02 2021-01-02 Letter Doctor 1.2.840.0 [id number] 948 Univers 00:00:00 00:00:00 (Out) Unassigned, 73420.1.1 ity of [place] 3.104.2.7 [place] .3.084853 Medica l .8 [place] 2021-01-02 2021-01-02 Letter Doctor 1.2.840.2 [id number] 946 Univers 00:00:00 00:00:00 (Out) Unassigned, 61340.1.1 ity of [place] 3.104.2.7 [place] .3.197537 Medica l .8 Branch 2021-01-02 2021-01-02 Travel 1.2.840.1 1.2.358.280 0571 2306 Univers 00:00:00 00:00:00 38988.1.1 350.1.13.10 ity of 3.104.2.7 4.2.7.3.698 [place] .3.259817 084.8 Medica l .8 [place] 2021-01-02 2021-01-02 Letter Doctor 1.2.840.5 [id number] 948 Univers 00:00:00 00:00:00 (Out) Unassigned, 36940.1.1 ity of [place] 3.104.2.7 [place] .3.950583 Medica l .8 [place] 2021-01-02 2021-01-02 Letter Doctor 1.2.840.1 [id number] 946 Univers 00:00:00 00:00:00 (Out) Unassigned, 51651.1.1 ity of [place] 3.104.2.7 [place] .3.809088 Medica l .8 [place] 2020-12-22 2020-12-22 Telephone Beltran, 1.2.840.9 [id number] [id number] Univers 00:00:00 00:00:00 Eligionda R 50131.1.1 i ty of 3.104.2.7 [place] .3.674021 Medica l .8 [place] 2020-12-22 2020-12-22 Telephone Beltran, 1.2.840.1 [id number] 862 [id number] Univers 00:00:00 00:00:00 Roshunda R 01757.1.1 i ty of 3.104.2.7 [place] .3.349531 Medica l .8 [place] 2020-12-12 2020-12-12 Office Hematpour, UTP 6400 1.2.840.114 12 [id number] [place] 07:42:02 08:18:[address] 350.1.13.58 Health 9.2.7.2.686 481.4047710 1 2020-12-12 2020-12-12 Office Hematpour, UTP 6400 1.2.840.114 12 [id number] 07:42:02 08:18:[address] 350.1.13.58 9.2.7.2.686 [id number] 1 2020-12-09 2020-12-09 [facility] 1.2.840.1 [id number] Methodi 00:00:00 00:00:00 Sarai Lieberman 80113.1.1 316 s t 3.430.2.7 Hospit a .3.449148 l .8 2020-12-08 2020-12-08 [facility], 1.2.840.1 [id number] 2100 [id number] Methodi 12:35:54 23:59:00 Encounter Ray 10182.1.[address] 3.430.2.7 Hospit a .3.378597 l .8 2020-12-08 2020-12-08 Lab [facility], 1.2.840.1 [id number] 03292 Methodi 17:25:00 17:30:[address] 3.430.2.7 Hospit a .3.084298 l .8 2020-12-08 2020-12-08 [facility], 1.2.840.1 [id number] 30584 Methodi 10:30:00 11:39:56 Visit Ray 92865.1.[address] 3.430.2.7 Hospit a .3.545747 l .8 2020-12-08 2020-12-08 Travel 1.2.840.1 1.2.763.520 0218 156178 Methodi 00:00:00 00:00:[address] 3.430.2.7 0.2.7.3.698 Ho spita .3.403713 084.8 l .8 2020-12-02 2020-12-02 National Sales Associate Santiago Cardenas 1.2.840.1 [id number] [facility] 10:20:06 10:36:19 Visit [facility] 04242.1.1 ity of 3.104.2.7 [place] .3.705425 Medica l .8 [place] 2020-12-02 2020-12-02 National Sales Associate Santiago Cardenas 1.2.840.1 [id number] Univers 10:20:06 10:36:19 Visit [facility] 18850.1.1 ity of 3.104.2.7 [place] .3.277516 Medica l .8 [place] 2020-12-02 2020-12-02 National Sales Associate [facility] UNIVERSIT 1.2.840.114 8 [id number] 10:20:06 10:36:19 Visit [facility] 350.1.13.10 [facility] 4.2.7.2.686 [id number] 316 2020-12-02 2020-12-02 Office Ronald, 1.2.840.3 [id number] 528 Univers 08:31:37 09:01:37 Visit [place] 35902.1.1 ity of 3.104.2.7 [place] .3.418237 Medica l .8 [place] 2020-12-02 2020-12-02 [facility] [id number] Univers 09:00:00 09:00:00 [place] ity of [facility] 2020-11-25 2020-11-25 Office [place], 1.2.840.5 [id number] Univers 11:06:30 11:58:14 Visit Robbi Hairston 20273.1.1 i ty of 3.104.2.7 [place] .3.664865 Medica l .8 [place] 2020-11-25 2020-11-25 Office Devin, 1.2.840.8 [id number] 865 Univers 11:06:30 11:58:14 Visit Robbi Hairston 09014.1.1 i ty of 3.104.2.7 [place] .3.765921 Medica l .8 [place] 2020-11-25 2020-11-25 [facility] 1.2.840.114 [id number] 11:06:30 11:58:14 Visit Robbi Hairston MANAGER PRINTING 350.1.13.10 REGIONAL 4.2.7.2.686 MATERNAL [id number] & CHILD [address] [place] [address] 2020-11-25 2020-11-25 Outpatient R [facility] [id number] Univers 11:00:00 11:00:00 ity of [facility] 2020-11-25 2020-11-25 Telephone [place], 1.2.840.2 [id number] Univers 00:00:00 00:00:00 Devinmaria elena R 53770.1.1 i ty of 3.104.2.7 [place] .3.184018 Medica l .8 [place] 2020-11-25 2020-11-25 Refill [place], 1.2.840.7 [id number] 592 Univers 00:00:00 00:00:00 [place] 17784.1.1 ity of 3.104.2.7 [place] .3.202371 Medica l .8 [place] 2020-11-25 2020-11-25 Travel 1.2.840.1 1.2.116.376 [id number] 0247 Univers 00:00:00 00:00:00 62488.1.1 350.1.13.10 ity of 3.104.2.7 4[place]2.7.3.698 [place] .3.082166 084.8 Medica l .8 [place] 2020-11-25 2020-11-25 Orders Doctor 1.2.840.9 [id number] 064 Univers 00:00:00 00:00:00 Only Unassigned, 82353.1.1 ity of [place] 3.104.2.7 [place] .3.814929 Medica l .8 [place] 2020-11-25 2020-11-25 Telephone [place], 1.2.840.6 [id number] [id number] Univers 00:00:00 00:00:00 Devina R 54056.1.1 i ty of 3.104.2.7 [place] .3.145365 Medica l .8 [place] 2020-11-25 2020-11-25 Refill [place], 1.2.840.9 [id number] 592 Univers 00:00:00 00:00:00 [place] 67578.1.1 ity of 3.104.2.7 [place] .3.506673 Medica l .8 [place] 2020-11-25 2020-11-25 Travel 1.2.840.1 1.2.232.931 7866 0247 Univers 00:00:00 00:00:00 80261.1.1 350.1.13.10 ity of 3.104.2.7 4.2.7.3.698 [place] .3.725476 084.8 Medica l .8 [place] 2020-11-25 2020-11-25 Orders Doctor 1.2.840.4 [id number] 064 Univers 00:00:00 00:00:00 Only Unassigned, 90655.1.1 ity of [place] 3.104.2.7 [place] .3.407951 Medica l .8 [place] 2020-11-25 2020-11-25 [facility] 1.2.224.589 [id number] 00:00:00 00:00:00 [facility] 350.1.13.10 [facility] 4.2.7.2.686 [id number] 2020-11-25 2020-11-25 Telephone [facility] 1.2.580.904 [id number] 0821 00:00:00 00:00:00 Robbi Hairston MANAGER PRINTING 350.1.13.10 [facility] 4.2.7.2.686 MATERNAL [id number] & CHILD [address] [place] [address] 2020-11-14 2020-11-14 Abstract [place] 1.2.840.1 [id number] [id number] Methodi 00:00:00 00:00:[address] 3.430.2.7 Hospit a .3.392667 l .8 2020-11-14 2020-11-14 Telephone [place] 1.2.840.1 [id number] [id number] Methodi 00:00:00 00:00:[address] 3.430.2.7 Hospit a .3.966618 l .8 2020-11-12 2020-11-12 Outpatient [facility] [id number] [facility] 08:30:00 08:30:00 SANTIAGO ity of [facility] 2020-11-07 2020-11-07 Telephone Agusitna Ortiz UTP 6400 1.2.840.11 4 [id number] [place] 00:00:00 00:00:[address] 350.1.13.58 Health 9.2.7.2.686 [id number] 1 2020-11-07 2020-11-07 Telephone KIMBERLEY Ortiz 6400 1.2.840.114 124 [id number] 00:00:00 00:00:[address] 350.1.13.58 9.2.7.2.686 [id number] 1 2020-10-31 2020-10-31 Office HematpourKIMBERLEY 6400 1.2.840.114 12 [id number] [place] 07:54:00 09:45:[address] 350.1.13.58 Health 9.2.7.2.686 [id number] 1 2020-10-30 2020-10-30 Abstract Rody Maguire UTP 6400 1.2.840.1 14 [id number] [place] 00:00:00 00:00:[address] 350.1.13.58 Health 9.2.7.2.686 [id number] 1 2020-10-29 2020-10-29 Refill East, 1.2.840.0 [id number] Univers 00:00:00 00:00:00 Santiago 40286.1.1 ity of 3.104.2.7 [place] .3.732410 Medica l .8 Branch 2020-10-29 2020-10-29 Refill East, 1.2.840.7 [id number] Univers 00:00:00 00:00:00 Santiago 75993.1.1 ity of 3.104.2.7 [place] .3.112479 Medica l .8 Branch 2020-10-27 2020-10-27 Telephone Jailyn 1.2.840.1 [id number] 21 [id number] Methodi 00:00:00 00:00:[address] 3.430.2.7 Hospit a .3.320208 l .8 2020-10-24 2020-10-24 Telephone Rodas, 1.2.840.1 [id number] 2100 [id number] Methodi 00:00:00 00:00:[address] 3.430.2.7 Hospit a .3.209997 l .8 2020-10-22 2020-10-22 Outpatient R SELF, [facility] [id number] Univers 13:00:00 13:00:00 GADIEL barbosa [facility] 2020-10-22 2020-10-22 Travel 1.2.840.1 1.2.547.796 [id number] [id number] Univers 00:00:00 00:00:00 57216.1.1 350.1.13.10 ity of 3.104.2.7 [place].3.698 [place] .3.716[place] 084.8 Medica l .8 [place] 2020-10-22 2020-10-22 Travel 1.2.840.1 1.2.148.884 4227 3839 Univers 00:00:00 00:00:00 59149.1.1 350.1.13.10 ity of 3.104.2.7 [place].3.698 [place]3.1198[place] 084.8 Medica l .8 [place] 2020-10-13 2020-10-13 Outpatient R SELF, [facility] [id number] Univers 08:45:00 08:45:00 GADIEL vogel [facility] 2020-10-06 2020-10-12 Telemedici Jailyn, 1.2.840.1 [id number] 21 [id number] Methodi 15:30:00 00:08:46 ne Ray 23596.1.[address] 3.430.2.7 Hospit a .3.701014 l .8 2020-09-30 2020-09-30 Telephone Jailyn, 1.2.840.8 [id number] 21 [id number] Methodi 00:00:00 00:00:[address] 3.430.2.7 Hospit a .3.017896 l .8 2020-09-21 2020-09-21 [facility] 1.2.840.1 1.2.921.165 3833 [id number] Methodi 00:00:00 00:00:[address] 3.430.2.7 0.2.7.3.698 Ho spita .3.081210 084.8 l .8 2020-09-06 2020-09-06 [facility] 1.2.840.1 [id number] 93243 Methodi 17:42:30 23:59:[address] 3.430.2.7 Hospit a .3.712908 l .8 2020-09-06 2020-09-06 [facility], 1.2.840.1 [id number] 2099 [id number] Methodi 16:50:00 17:41:00 Encounter Ray 11347.1.[address] 3.430.2.7 Hospit a .3.046614 l .8 2020-09-05 2020-09-05 [facility], 1.2.840.1 [id number] 2099 [id number] Methodi 09:17:00 19:45:00 Encounter Ray [address]649.1.[address] 3.430.2.7 Hospit a .3.765492 l .8 2020-09-05 2020-09-05 Surgery [facility], 1.2.840.1 [id number] 49459 Methodi 11:30:00 13:15:[address] 3.430.2.7 Hospit a .3.811371 l .8 2020-09-05 2020-09-05 Anesthesia [facility], 1.2.840.1 [id number] 074 [id number] Methodi 11:27:00 12:20:00 Event Sarvalentinawathi 56324.1.1 243 s t V. 3.430.2.7 Hospit a .3.678115 l .8 2020-09-05 2020-09-05 Travel 1.2.840.1 1.2.785.447 2236 [id number] Methodi 00:00:00 00:00:[address] 3.430.2.7 0.2.7.3.698 Ho spita .3.704515 084.8 l .8 2020-09-04 2020-09-04 Telephone Meisenbach, 1.2.840.1 [id number] Methodi 00:00:00 00:00:00 Sarai Corbin. 08305.1.1 762 s t 3.430.2.7 Hospit a .3.978682 l .8 2020-09-02 2020-09-02 Telephone Meisenbach, 1.2.840.4 [id number] Methodi 00:00:00 00:00:00 Sarai Corbin. 42919.1.1 344 s t 3.430.2.7 Hospit a .3.314518 l .8 2020-08-29 2020-08-30 Bedded [facility] hospital [id number] [facility] 10:20:00 14:10:00 Outpatient r Marty 00 [facility] 2020-08-29 2020-08-30 Outpatient HEMATPOUR, [facility] CAR 7500 [facility] 05:20:00 09:10:00 BEVERLY 2020-08-06 2020-08-06 Office East, 1.2.840.1 [id number] [facility] 08:03:23 09:17:49 Visit Santiago 70070.1.1 itcharlie 3.104.2.7 [facility].953370 Medica l [address] 2020-08-06 2020-08-06 Outpatient R RONALD [facility] [id number] [facility] 08:30:00 08:30:00 SANTIAGO barbosa of [facility] 2020-07-14 2020-07-14 Outpatient R RODO [facility] [id number] Univers 09:30:00 09:30:00 GADIEL rodas [facility] 2020-07-14 2020-07-14 Travel 1.2.840.1 1.2.388.114 [id number] [id number] Univers 00:00:00 00:00:00 67117.1.1 350.1.13.10 ity of 3.104.2.7 [place].3.698 [place]3.075059 084.8 Medica l .8 [place] 2020-07-14 2020-07-14 Orders Doctor 1.2.840.0 [id number] Univers 00:00:00 00:00:00 Only Unassigned, 14846.1.1 ity of [place] 3.104.2.7 [place] .3.895471 Medica l .8 [place] 2020-06-16 2020-06-16 Outpatient R [facility] [id number] Univers 08:00:00 08:00:00 GADIEL rodas [facility] 2020-06-06 2020-06-06 Telephone East, 1.2.840.8 [id number] [id number] Univers 00:00:00 00:00:00 Santiago 46141.1.1 ity of 3.104.2.7 [place] .3.118382 Medica l .8 [place] 2020-06-04 2020-06-04 National Sales Associate [place] Cardenas 1.2.840.1 [id number] Univers 09:31:58 09:40:12 Visit [facility] 56340.1.1 ity of 3.104.2.7 [place] .3.988766 Medica l .8 [place] 2020-06-04 2020-06-04 Office East, FRANCO 1.2.510.637 3901 [id number] Univers 08:13:41 09:28:25 Visit Santiago [facility] 350.1.13.10 i ty of CLINICS 4.2.7.2.686 Richi bach [id number] [facility] porfirio 089 [place] 2020-06-04 2020-06-04 Outpatient R [facility] [id number] Univers 08:30:00 08:30:00 SANTIAGO barbosa [facility] 2020-06-04 2020-06-04 Orders Doctor 1.2.840.0 [id number] Univers 00:00:00 00:00:00 Only Unassigned, 14198.1.1 ity of [place] 3.104.2.7 [place] .3.398855 Medica l .8 [place] 2020-05-19 2020-05-19 Telephone East, 1.2.840.1 [id number] [id number] Univers 00:00:00 00:00:00 Santiago 78321.1.1 ity of 3.104.2.7 [place] .3.298745 Medica l .8 [place] 2020-04-24 2020-04-24 Telephone East, 1.2.840.4 [id number] [id number] Univers 00:00:00 00:00:00 Santiago 63665.1.1 ity of 3.104.2.7 [place] .3.308535 Medica l .8 [place] 2020-04-14 2020-04-14 Outpatient R EAST, [facility] [id number] Univers 09:00:00 09:00:00 SANTIAGO ity [facility] 2020-04-14 2020-04-14 Telephone East, 1.2.840.6 [id number] [id number] Univers 00:00:00 00:00:00 Santiago 77857.1.1 ity of 3.104.2.7 [place] .3.643823 Medica l .8 [place] 2020-03-31 2020-03-31 Outpatient R EAST, [facility] [id number] Univers 08:30:00 08:30:00 SANTIAGO ity [facility] 2020-03-03 2020-03-03 Outpatient R SELF, [facility] [id number] Univers 08:00:00 08:00:00 GADEIL rodas [facility] 2020-03-03 2020-03-03 Outpatient R SELF, [facility] [id number] Univers 08:00:00 08:00:00 GADIEL rodas [facility] 2020-03-03 2020-03-03 Travel 1.2.840.1 1.2.513.361 [id number] [id number] Univers 00:00:00 00:00:00 12194.1.1 350.1.13.10 ity of 3.104.2.7 4[place].7.3.698 [place] .3.122306 084.8 Medica l .8 [place] 2020-02-06 2020-02-06 Telephone East, 1.2.840.2 [id number] [id number] Univers 00:00:00 00:00:00 Santiago 93716.1.1 ity of 3.104.2.7 [place] .3.978400 Medica l .8 [place] 2020-01-26 2020-01-26 Emergency Caridad, 1.2.840.2 [id number] [id number] Univers 10:03:00 13:05:00 Cynise 75416.1.1 ity of 3.104.2.7 [place] .3.411167 Medica l .8 [place] 2020-01-26 2020-01-26 Travel 1.2.840.1 1.2.405.904 [id number] 0120 Univers 00:00:00 00:00:00 98838.1.1 350.1.13.10 ity of 3.104.2.7 4.[place].7.3.698 [place] .3.674823 084.8 Medica l .8 [place] 2020-01-25 2020-01-25 Outpatient R [facility] [id number] Univers 08:30:00 08:30:00 SANTIAGO ity of [facility] 2020-01-25 2020-01-25 Telemedici East, 1.2.840.0 [id number] Univers 07:36:49 08:06:49 ne Visit Santiago 84619.1.1 ity of 3.104.2.7 [place] .3.076818 Medica l .8 [place] 2020-01-16 2020-01-16 Outpatient R [facility] [id number] Univers 08:00:00 08:00:00 SANTIAGO ity of [facility] 2020-01-16 2020-01-16 Telephone East, 1.2.840.9 [id number] Univers 00:00:00 00:00:00 Santiago 45807.1.1 ity of 3.104.2.7 [place] .3.337371 Medica l .8 [place] 2020-01-14 2020-01-14 Outpatient R SELF, [facility] [id number] Univers 08:00:00 08:00:00 GADIEL rodas [facility] 2019-12-31 2019-12-31 Outpatient R SELF, [facility] [id number] Univers 08:45:00 08:45:00 GADIEL rodas [facility] 2019-10-17 2019-10-17 Outpatient R EAST, [facility] [id number] Univers 08:30:00 08:30:00 SANTIAGO ity [facility] 2019-10-12 2019-10-12 Outpatient R EAST, [facility] [id number] Univers 13:00:00 13:00:00 SANTIAGO ity [facility] 2019-10-12 2019-10-12 Telemedici East, 1.2.840.6 [id number] Univers 07:38:30 08:08:30 ne Visit Santiago 84512.1.1 ity of 3.104.2.7 [place] .3.427108 Medica l .8 [place] 2019-10-08 2019-10-08 Outpatient R SELF, [facility] [id number] Univers 10:15:00 10:15:00 GADIEL rodas [facility] 2019-10-03 2019-10-03 Case Judyman, 1.2.840.9 [id number] Univers 00:00:00 00:00:00 Management Michael Corbin 64858.1.1 i ty of 3.104.2.7 [place] .3.843228 Medica l .8 [place] 2019-09-27 2019-09-27 Telephone East, 1.2.840.0 [id number] Univers 00:00:00 00:00:00 Santiago 47462.1.1 ity of 3.104.2.7 [place] .3.433466 Medica l .8 [place] 2019-09-04 2019-09-04 Refill East, 1.2.840.6 [id number] Univers 00:00:00 00:00:00 Santiago 88618.1.1 ity of 3.104.2.7 [place] .3.642110 Medica l .8 [place] 2019-07-24 2019-07-24 Outpatient R RONALD, [facility] [id number] Univers 08:30:00 08:30:00 SANTIAGO ity [facility] 2019-07-17 2019-07-17 Outpatient R EAST, [facility] [id number] Univers 10:00:00 10:00:00 SANTIAGO itcharlie [facility] 2019-06-15 2019-06-15 Telephone East, 1.2.840.6 [id number] Univers 00:00:00 00:00:00 Santiago 90497.1.1 ity of 3.104.2.7 [place] .3.846200 Medica l .8 [place] 2019-06-13 2019-06-13 Telephone Team, [facility] 1.2.840.4 [id number] Univers 00:00:00 00:00:00 Health 78033.1.1 ity of [place].2.7 [place] .3.683216 Medica l .8 [place] 2019-05-10 2019-05-10 Refill Ronald, 1.2.840.1 [id number] Univers 00:00:00 00:00:00 Santiago 52882.1.1 ity of 3.104.2.7 [place] .3.031674 Medica l .8 [place] 2019-05-09 2019-05-09 Refill Ronald, 1.2.840.2 [id number] Univers 00:00:00 00:00:00 Santiago 40645.1.1 ity of 3.104.2.7 [place] .3.655196 Medica l .8 [place] 2019-04-30 2019-04-30 Outpatient R SELF, [facility] [id number] Univers 10:15:00 10:33:05 GADIEL barbosa o f [facility] 2019-04-18 2019-04-18 National Sales Associate [place] Cardenas 1.2.840.1 [id number] Univers 10:00:39 10:44:31 Visit [facility] 09520.1.1 ity of 3.104.2.7 [place] .3.008569 Medica l .8 [place] 2019-04-18 2019-04-18 Outpatient R EAST, [facility] [id number] Univers 10:00:00 10:44:31 SANTIAGO ity of [facility] 2019-04-18 2019-04-18 Office East, 1.2.840.7 [id number] Univers 08:27:44 09:53:27 Visit Santiago 00317.1.1 ity of 3.104.2.7 [place] .3.137655 Medica l .8 [place] 2019-04-18 2019-04-18 Orders Doctor 1.2.840.8 [id number] Univers 00:00:00 00:00:00 Only Unassigned, 13748.1.1 ity of [place] 3.104.2.7 [place] .3.322442 Medica l .8 [place] 2019-04-11 2019-04-11 Refill East, 1.2.840.8 [id number] Univers 00:00:00 00:00:00 Santiago 60987.1.1 ity of 3.104.2.7 [place] .3.708043 Medica l .8 [place] 2019-04-09 2019-04-09 Refill East, 1.2.840.1 [id number] Univers 00:00:00 00:00:00 Santiago 83937.1.1 ity of 3.104.2.7 [place] .3.204896 Medica l .8 [place] 2019-04-03 2019-04-03 Telephone Team, [facility] 1.2.840.0 [id number] Univers 00:00:00 00:00:00 Health 57666.1.1 ity [place].2.7 [place] .3.197087 Medica l .8 [place] 2019-03-27 2019-03-27 Telephone Self, 1.2.840.2 [id number] Univers 00:00:00 00:00:00 Gadiel 45895.1.1 ity of 3.104.2.7 [place] .3.581368 Medica l .8 [place] 2019-01-17 2019-01-17 Office Ronald, 1.2.840.0 [id number] Univers 07:37:21 10:32:51 Visit Santiago 85898.1.1 ity of 3.104.2.7 [place] .3.247057 Medica l .8 Branch 2019-01-04 2019-01-12 Office Eveline Hansen 1.2.840.6 [id number] Univers 11:19:32 11:08:05 Visit Mariela 22884.1.1 ity of 3.104.2.7 [place] .3.910016 Medica l .8 Branch 2019-01-10 2019-01-10 Telephone Stanislav, 1.2.840.3 [id number] [id number] Univers 00:00:00 00:00:00 Eladio Inman 65872.1.1 ity of 3.104.2.7 [place] .3.421825 Medica l .8 [place] 2018-12-18 2018-12-18 Office Geraldine, 1.2.840.0 [id number] [facility] 08:48:45 09:13:43 Visit Leyda 89068.1.1 it y of 3.104.2.7 [place] .3.300575 Medica l .8 [place] 2018-10-30 2018-10-30 Telephone Ronald, 1.2.840.1 [id number] Univers 00:00:00 00:00:00 Santiago 25707.1.1 ity of 3.104.2.7 [place] .3.370627 Medica l .8 [place] 2018-10-23 2018-10-23 Orders Doctor 1.2.840.4 [id number] Univers 00:00:00 00:00:00 Only Unassigned, 70177.1.1 ity of [place] 3.104.2.7 [place] .3.344114 Medica l .8 [place] 2018-10-23 2018-10-23 Nurse Selvin, 1.2.840.9 [id number] Univers 00:00:00 00:00:00 Triage Stefanie 76812.1.1 ity of 3.104.2.7 [place] .3.635503 Medica l .8 Branch 2018-10-23 2018-10-23 Telephone Self, 1.2.840.4 [id number] Univers 00:00:00 00:00:00 Gadiel 18923.1.1 ity of 3.104.2.7 [place] .3.769963 Medica l .8 Branch 2018-10-20 2018-10-20 Telephone Self, 1.2.840.7 [id number] Univers 00:00:00 00:00:00 Gadiel 69264.1.1 ity of 3.104.2.7 [place] .3.888806 Medica l .8 [place] Results Test Description Test Time Test Comments Results Result Comments Source BLOOD CULTURE SCREEN 2022-02-16 06:01:07 Test Item Value Reference Range Interpretation Comme nts Blood Culture-Aerobic (test No organisms isolated No growth Previous preliminary code = 20847-9) verified res ult was Culture In Prog [...] No growth Previous preliminary (test code = 85117-5) verifi ed result was Culture In Prog [...] CDT Lab Interpretation (test Normal code = 28536-9) [facility] [place] [facility] [id number] 06:01:07 Test Item Value Reference Range Interpretation Comments Blood Culture-Aerobic No organisms No growth Previo us (test code = 14885-3) isolated prelim inary verified result was Culture [...] Culture-Anaerobic isolated preliminar y (test code = 33635-3) verifi ed result was Culture In Progress [...] CDT Lab Interpretation Normal (test code = 20605-9) [facility] [place] [facility] [id number] 06:01:07 Test Item Value Reference Range Interpretation Comments Blood Culture-Aerobic No organisms No growth Previo us (test code = 63934-9) isolated prelim inary verified result was Culture [...] Culture-Anaerobic isolated preliminar y (test code = 99073-3) verifi ed result was Culture In Progress [...] CDT Lab Interpretation Normal (test code = 88265-1) [facility] [place] [facility] [id number] 10:49:10 Test Item Value Reference Range Interpretation Comments NT-proBNP (test code 2660 pg/mL See_Comment H [Autom ated = 8142755845) message] The system which generated this result transmitted reference range : <=125. The reference range was not used to interpret this result as normal/abnormal . KYLE (test code = KYLE) Biotin has been reported to cause a negative bias, interpret results relative to patient's use of biotin. Lab Interpretation Abnormal (test code = 79581-4) [facility] [place] [facility] [id number] 10:49:10 Test Item Value Reference Range Interpretation Comments NT-proBNP (test code 2660 pg/mL See_Comment H [Autom ated = 4377871157) message] The system which generated this result transmitted reference range : <=125. The reference range was not used to interpret this result as normal/abnormal . KYLE (test code = KYLE) Biotin has been reported to cause a negative bias, interpret results relative to patient's use of biotin. Lab Interpretation Abnormal (test code = 05767-6) [facility] [place] [facility] (NA, K, CL, CO2, GLUCOSE, BUN, CREATININE, CA)2022-02-15 10:44:07 Test Item Value Reference Range Interpretation Comments NA (test code = 134 mmol/L 135-145 L 3594942016) K (test code = 3.2 mmol/L 3.5-5 L 4506736652) CL (test code = 98 mmol/L 98-108 2815530104) CO2 TOTAL (test code = 27 mmol/L 23-31 5527791033) AGAP (test code = 2-16 6235177596) BUN (test code = 19 mg/dL 7-23 7480127437) GLUCOSE (test code = 102 mg/dL 70-110 8797126337) CREATININE (test code = 0.95 mg/dL 0.5-1.04 1488141228) CALCIUM (test code = 8.5 mg/dL 8.6-10.6 L 8311092551) eGFR (test code = mL/min/1.73m2 3165971001) KYLE (test code = KYLE) Association of [...] tests). Lab Interpretation Abnormal (test code = 80283-1) [facility]2022-09-26 10:44:07 Test Item Value Reference Range Interpretation Comments MAGNESIUM (test code = 4143459488) 1.8 mg/dL 1.7-2.4 Lab Interpretation (test code = Normal 56153-3) [facility]2022-09-26 10:44:07 Test Item Value Reference Range Interpretation Comments MAGNESIUM (test code = 6397500764) 1.8 mg/dL 1.7-2.4 Lab Interpretation (test code = Normal 87502-2) [facility] METABOLIC PANEL (NA, K, CL, CO2, GLUCOSE, BUN, CREATININE, CA)2022-02-15 10:44:07 Test Item Value Reference Range Interpretation Comments NA (test code = 134 mmol/L 135-145 L 8495338424) K (test code = 3.2 mmol/L 3.5-5.0 L 8230629172) CL (test code = 98 mmol/L 98-108 1593870250) CO2 TOTAL (test code = 27 mmol/L 23-31 0607851951) AGAP (test code = 2-16 8399658056) BUN (test code = 19 mg/dL 7-23 4702819452) GLUCOSE (test code = 102 mg/dL 70-110 9236496109) CREATININE (test code = 0.95 mg/dL 0.50-1.04 1237534607) CALCIUM (test code = 8.5 mg/dL 8.6-10.6 L 6990500475) eGFR (test code = mL/min/1.73m2 5004572037) KYLE (test code = KYLE) Association of [...] tests). Lab Interpretation Abnormal (test code = 47889-2) [facility] WITH [id number] 10:12:06 Test Item Value Reference Range Interpretation [...] RDW-SD (test code = 47.8 fL 39-49.9 48477-1) RDW-CV (test code = 15.2 % 12-15.5 788-0) PLT (test code = See_Comment L [Automated 777-3) message] The sy stem which generated this result transmitted reference range : 166 - 358 10*3/ ?L. The reference r abbey was not used to interpret this result as normal/abnormal . MPV (test code = 8.9 fL 9.5-12.9 L 79734-9) NRBC/100 WBC (test See_Comment [Automat ed code = 1956053995) message] The system which generated this result transmitted reference range : 0.0 - 10.0 /100 WBCs. The refer ence range was not u sed to interpret th is result as normal/abnormal . NRBC x10^3 (test code See_Comment [Auto mated = 8423912315) message] The s ystem which generated this result transmitted reference range : 10*3/?L. The reference range was not used to interpret this result as normal/abnormal . GRAN MAT (NEUT) % 65.9 % (test code = 770-8) IMM GRAN % (test code 0.30 % = 0052954688) LYMPH % (test code = 21.0 % 736-9) MONO % (test code = 10.1 % 5905-5) EOS % (test code = 2.4 % 713-8) BASO % (test code = 0.3 % 706-2) GRAN MAT x10^3(ANC) 2.49 10*3/uL 1.88-7.09 (test code = 7125240259) IMM GRAN x10^3 (test 0-0.06 code = 5749877861) LYMPH x10^3 (test code 0.79 10*3/uL 1.32-3.29 L = 731-0) MONO x10^3 (test code 0.38 10*3/uL 0.33-0.92 = 742-7) EOS x10^3 (test code = 0.09 10*3/uL 0.03-0.39 711-2) BASO x10^3 (test code 0.01-0.07 = 704-7) Lab Interpretation Abnormal (test code = 53587-7) [facility] WITH [id number] 10:12:06 Test Item Value Reference Range Interpretation [...] RDW-SD (test code = 47.8 fL 39.0-49.9 50792-0) RDW-CV (test code = 15.2 % 12.0-15.5 788-0) PLT (test code = See_Comment L [Automated 777-3) message] The sy stem which generated this result transmitted reference range : 166 - 358 10*3/ ?L. The reference r abbey was not used to interpret this result as normal/abnormal . MPV (test code = 8.9 fL 9.5-12.9 L 62793-5) NRBC/100 WBC (test See_Comment [Automat ed code = [id number]) message] The system which generated this result transmitted reference range : 0.0 - 10.0 /100 WBCs. The refer ence range was not u sed to interpret th is result as normal/abnormal . NRBC x10^3 (test code See_Comment [Auto mated = [id number]) message] The s ystem which generated this result transmitted reference range : 10*3/?L. The reference range was not used to interpret this result as normal/abnormal . GRAN MAT (NEUT) % 65.9 % (test code = 770-8) IMM GRAN % (test code 0.30 % = [id number]) LYMPH % (test code = 21.0 % 736-9) MONO % (test code = 10.1 % 5905-5) EOS % (test code = 2.4 % 713-8) BASO % (test code = 0.3 % 706-2) GRAN MAT x10^3(ANC) 2.49 10*3/uL 1.88-7.09 (test code = [id number]) IMM GRAN x10^3 (test 0.00-0.06 code = [id number]) LYMPH x10^3 (test code 0.79 10*3/uL 1.32-3.29 L = 731-0) MONO x10^3 (test code 0.38 10*3/uL 0.33-0.92 = 742-7) EOS x10^3 (test code = 0.09 10*3/uL 0.03-0.39 711-2) BASO x10^3 (test code 0.01-0.07 = 704-7) Lab Interpretation Abnormal (test code = 33272-6) [facility] WITH [id number] 11:18:28 Test Item Value Reference Range Interpretation [...] RDW-SD (test code = 49.5 fL 39-49.9 95075-1) RDW-CV (test code = 15.5 % 12-15.5 788-0) PLT (test code = See_Comment L [Automated 777-3) message] The sy stem which generated this result transmitted reference range : 166 - 358 10*3/ ?L. The reference r abbey was not used to interpret this result as normal/abnormal . MPV (test code = 11.4 fL 9.5-12.9 49644-9) IPF % (test code = 8.7 % 1.3-7.7 H Platelet count [id number]) measured by fluorescence method. NRBC/100 WBC (test See_Comment [Automat ed code = [id number]) message] The system which generated this result transmitted reference range : 0.0 - 10.0 /100 WBCs. The refer ence range was not u sed to interpret th is result as normal/abnormal . NRBC x10^3 (test code See_Comment [Auto mated = [id number]) message] The s ystem which generated this result transmitted reference range : 10*3/?L. The reference range was not used to interpret this result as normal/abnormal . GRAN MAT (NEUT) % 62.0 % (test code = 770-8) IMM GRAN % (test code 0.80 % = [id number]) LYMPH % (test code = 22.2 % 736-9) MONO % (test code = 9.6 % 5905-5) EOS % (test code = 5.1 % 713-8) BASO % (test code = 0.3 % 706-2) GRAN MAT x10^3(ANC) 2.21 10*3/uL 1.88-7.09 (test code = [id number]) IMM GRAN x10^3 (test 0.03 10*3/uL 0-0.06 code = [id number]) LYMPH x10^3 (test code 0.79 10*3/uL 1.32-3.29 L = 731-0) MONO x10^3 (test code 0.34 10*3/uL 0.33-0.92 = 742-7) EOS x10^3 (test code = 0.18 10*3/uL 0.03-0.39 711-2) BASO x10^3 (test code 0.01-0.07 = 704-7) POLYCHROMASIA (test 2+ See_Comment [Automa arpit code = 63131-2) message] The system which generated this result [...] . Lab Interpretation Abnormal (test code = 94088-2) [facility] METABOLIC PANEL (NA, K, CL, CO2, GLUCOSE, BUN, CREATININE, CA)2022-02-13 10:39:07 Test Item Value Reference Range Interpretation Comments NA (test code = 136 mmol/L 135-145 6886594284) K (test code = 4.1 mmol/L 3.5-5 6538308034) CL (test code = 102 mmol/L 98-108 5274459467) CO2 TOTAL (test code = 27 mmol/L 23-31 8400099601) AGAP (test code = 2-16 8118101724) BUN (test code = 22 mg/dL 7-23 4888659217) GLUCOSE (test code = 94 mg/dL 70-110 7606144705) CREATININE (test code = 0.94 mg/dL 0.5-1.04 5172966441) CALCIUM (test code = 8.1 mg/dL 8.6-10.6 L 9299881205) eGFR (test code = mL/min/1.73m2 1632012185) KYLE (test code = KYLE) Association of [...] tests). Lab Interpretation Abnormal (test code = 89002-4) [facility]2022-[facility]-12 01:50:10 Test Item Value Reference Range Interpretation Comments Height (test code = in 0843890505) Weight (test code = lbs 6759165490) Systolic BP (test code mmHg = 4804554017) Diastolic BP (test code mmHg = 8109983661) Heart Rate (test code = bpm 8257895482) BSA (test code = 1.85 m2 4586022997) IVS (test code = 1.22 cm 5487614257) Interventricular Septum 1.22 cm Diastolic Thickness by 2D (test code = 2859064) LVIDD (test code = 5.00 cm 6601883175) Left Ventricular End 117.9 mL Diastolic Volume by Teichholz Method (test code = 8585606) LVPWD (test code = 1.22 cm 8364995120) PW (test code = 1.22 cm 0.6-1.3 5819913116) EF(Teich) (test code = 74.60 % 8443175896) LVIDS (test code = 2.80 cm 4279764719) Left Ventricular End 29.9 mL Systolic Volume by Teichholz Method (test code = 1753956) FS (test code = 44 % 1702434917) EF - 2D (test code = 74.60 % 75535553) LVOT diameter (test 2.16 cm code = 5072205201) LVOT area (test code = 3.70 cm2 7250555580) Ao root diam (test code 3.40 cm = 8077194879) Aortic root (test code 3.4 cm = 0985390953) Ao root annulus (test 3.4 cm code = 2257486961) LA size (test code = 3.4 cm 9905350922) TR Peak Spencer (test code 330.0 cm/s = 5130206387) Triscuspid Valve mmHg Regurgitation Peak Gradient (test code = 4992794387) PV REGURGITATION PEAK mmHg GRADIENT (test code = 7997863330) PI dec slope (test code 137.20 cm/s2 = 0965389788) LAV(MOD-sp4) (test code 102.90 mL = 9234049195) MV Peak E Spencer (test 84.1 cm/s code = 9012516011) MV Peak A Spencer (test 40.1 cm/s code = 6254147256) E/A ratio (test code = ratio 2734136778) MV valve area p 1/2 3.70 cm2 method (test code = 0668208620) MV dec slope (test code 413.00 cm/s2 = 5693243329) MV P1/2t max spencer (test 83.70 cm/s code = 9510255961) MV Prop V (test code = 41.80 cm/s 1550538779) Tapse (test code = 1.83 cm 8843058335) LVOT stroke volume 96.90 cm3 (test code = 3643049539) LVOT peak spencer (test 125.5 cm/s code = 4837090455) LVOT mn grad (test code mmHg = 9227111793) AV LVOT peak gradient mmHg (test code = 9144781742) LVOT peak VTI (test 26.4 cm code = 7950033256) LV V1 mean (test code = 78.10 cm/s 8498623813) Aortic valve mean 103.7 cm/s velocity (test code = 2010239507) Ao peak spencer (test code 165.6 cm/s = 5441159749) Ao VTI (test code = 37.2 cm 6534645274) AV area by cont VTI 2.6 cm2 (test code = 6197788535) AV area peak spencer (test 2.8 cm2 code = 4335581930) Ao max PG (test code = 11.00 mm[Hg] 8778849258) AV peak gradient (test mmHg code = 3070070110) AV valve area (test 2.60 cm2 code = 1345021743) AV mean gradient (test mmHg code = 7298682389) LA Volume Index (BP) 55.2 mL/m2 (test code = 5018983210) LA volume (BP) (test 102.1 mL code = 1713182133) LAV(MOD-sp2) (test code 86.10 mL = 6775473757) A2C EF (test code = 61.20 % 3998462565) EF(sp2-el) (test code = 61.60 % 3125941996) SV(MOD-sp2) (test code 47.10 mL = 7696333662) LV Diastolic Volume 70.7 mL (BP) (test code = 6421844786) A4C EF (test code = 53.00 % 5604462252) EF(MOD-bp) (test code = 56.70 % 4447048551) EF(sp4-el) (test code = 53.90 % 1470558187) LV Systolic Volume (BP) 30.6 mL (test code = 8237549326) SV(MOD-bp) (test code = 40.10 mL 9290270333) SV(MOD-sp4) (test code 32.40 mL = 8220642600) SV(sp4-el) (test code = 33.10 mL 8418422939) EF (test code = 3077928962) Left Ventricular Stroke 40.1 mL Volume by 2-D Biplane-MOD (test code = 1378443) LV Diastolic Volume 38.2 mL/m2 Index (BP) (test code = 7089830544) LV Systolic Volume 16.5 mL/m2 Index (BP) (test code = 6405897963) Radiology Study observation (narrative) (test code = 39725-4) KYLE (test code = KYLE) ?Left?Ventricle: Left [...] 1.00The left ventricular wall motion is normal. [facility] CampusTROPONIN [id number] 05:45:01 Test Item Value Reference Interpretation Comments Range TROPONIN I (test See_Comment [Automated code = 3642627338) message] The system which generated this result [...] biotin. Lab Interpretation Normal (test code = 35366-6) [facility] CampusN-TERMINAL LCJ-NQD5081-13-22 05:41:40 Test Item Value Reference Range Interpretation Comments NT-proBNP (test code 4250 pg/mL See_Comment H [Autom ated = 2526431115) message] The system which generated this result transmitted reference range : <=125. The reference range was not used to interpret this result as normal/abnormal . KYLE (test code = KYLE) Biotin has been reported to cause a negative bias, interpret results relative to patient's use of biotin. Lab Interpretation Abnormal (test code = 67377-9) [facility] CampusACTIVATED PARTIAL THRMPLAS ECM7102-67-31 05:35:21 Test Item Value Reference Range Interpretation [...] seconds. Lab Interpretation Normal (test code = 98771-5) [facility] CampusACTIVATED PARTIAL THRMPLAS BYW4623-48-54 05:35:21 Test Item Value Reference Range Interpretation [...] seconds. Lab Interpretation Normal (test code = 82591-5) [facility] CampusPROTHROMBIN TIME / [id number] 05:33:21 Test Item Value Reference Range Interpretation [...] tions. Lab Interpretation (test Normal code = 47840-1) [facility] CampusCOMP. METABOLIC PANEL (83948)2022-02-11 05:33:21 Test Item Value Reference Range Interpretation Comments NA (test code = 137 mmol/L 135-145 1318234613) K (test code = 4.3 mmol/L 3.5-5 1771105593) CL (test code = 103 mmol/L 98-108 4101493849) CO2 TOTAL (test code = 25 mmol/L 23-31 5105028838) AGAP (test code = 2-16 9955080619) BUN (test code = 19 mg/dL 7-23 4558076147) GLUCOSE (test code = 120 mg/dL 70-110 H 9177695601) CREATININE (test code = 1.15 mg/dL 0.5-1.04 H 8792542016) TOTAL BILI (test code = 0.9 mg/dL 0.1-1.2 6819438465) CALCIUM (test code = 8.9 mg/dL 8.6-10.6 6915346078) T PROTEIN (test code = 6.6 g/dL 6.3-8.2 5421301608) ALBUMIN (test code = 4.0 g/dL 3.5-5 8561563439) ALK PHOS (test code = 73 U/L 34-122 0600042901) ALTv (test code = 18 U/L 5-35 1742-6) AST(SGOT) (test code = 31 U/L 13-40 5108739300) eGFR (test code = mL/min/1.73m2 2180435433) KYLE (test code = KYLE) Association of [...] tests). Lab Interpretation Abnormal (test code = 02233-7) [facility]. METABOLIC PANEL (39991)2022-02-11 05:33:21 Test Item Value Reference Range Interpretation Comments NA (test code = 137 mmol/L 135-145 9983997404) K (test code = 4.3 mmol/L 3.5-5.0 3140354712) CL (test code = 103 mmol/L 98-108 8303803826) CO2 TOTAL (test code = 25 mmol/L 23-31 7193141724) AGAP (test code = 2-16 6726172871) BUN (test code = 19 mg/dL 7-23 5472883870) GLUCOSE (test code = 120 mg/dL 70-110 H 7127428106) CREATININE (test code = 1.15 mg/dL 0.50-1.04 H 5944849608) TOTAL BILI (test code = 0.9 mg/dL 0.1-1.8 9192889528) CALCIUM (test code = 8.9 mg/dL 8.6-10.6 6975394270) T PROTEIN (test code = 6.6 g/dL 6.3-8.2 1014517997) ALBUMIN (test code = 4.0 g/dL 3.5-5.0 0474741596) ALK PHOS (test code = 73 U/L 34-122 9986825932) ALTv (test code = 18 U/L 5-35 1742-6) AST(SGOT) (test code = 31 U/L 13-40 4874257574) eGFR (test code = mL/min/1.73m2 7154226739) KYLE (test code = KYLE) Association of [...] tests). Lab Interpretation Abnormal (test code = 34590-0) [facility] CampusPROTHROMBIN TIME / [id number] 05:33:21 Test Item Value Reference Range Interpretation Comments PROTIME PATIENT (test See_Comment [Auto mated message] code = 5964-2) The system [employer] ich generated this result transmitted ref erence range: 12.0 - 1 4.7 Seconds. The re ference range was not u sed to interpret this result as normal/abnor mal. INR (test code = 6301-6) Nor mal INR <1.1; Warfarin Therap eutic range 2.0 to 3. 0 or 2.5 to 3.5, dep ending upon the indica tions. Lab Interpretation (test Normal code = 47897-9) [facility] CampusCB WITH HDTV4465-98-88 05:14:37 Test Item Value Reference Range Interpretation Comments WBC (test code = See_Comment [Automated 0590-2) message] The sy stem which generated this [...] RDW-SD (test code = 47.9 fL 39-49.9 70453-7) RDW-CV (test code = 14.9 % 12-15.5 788-0) PLT (test code = See_Comment L [Automated 777-3) message] The sy stem which generated this result transmitted reference range : 166 - 358 10*3/ ?L. The reference r abbey was not used to interpret this result as normal/abnormal . MPV (test code = 9.1 fL 9.5-12.9 L 33010-9) NRBC/100 WBC (test See_Comment [Automat ed code = 6146261564) message] The system which generated this result transmitted reference range : 0.0 - 10.0 /100 WBCs. The refer ence range was not u sed to interpret th is result as normal/abnormal . NRBC x10^3 (test code See_Comment [Auto mated = 4802193884) message] The s ystem which generated this result transmitted reference range : 10*3/?L. The reference range was not used to interpret this result as normal/abnormal . GRAN MAT (NEUT) % 78.5 % (test code = 770-8) IMM GRAN % (test code 0.20 % = 9721441685) LYMPH % (test code = 11.6 % 736-9) MONO % (test code = 8.4 % 5905-5) EOS % (test code = 1.1 % 713-8) BASO % (test code = 0.2 % 706-2) GRAN MAT x10^3(ANC) 3.45 10*3/uL 1.88-7.09 (test code = 9462211067) IMM GRAN x10^3 (test 0-0.06 code = 2684596597) LYMPH x10^3 (test code 0.51 10*3/uL 1.32-3.29 L = 731-0) MONO x10^3 (test code 0.37 10*3/uL 0.33-0.92 = 742-7) EOS x10^3 (test code = 0.05 10*3/uL 0.03-0.39 711-2) BASO x10^3 (test code 0.01-0.07 = 704-7) Lab Interpretation Abnormal (test code = 93115-3) [facility] Coronavirus 2019 Kukcxvb2099-02-27 18:08:00 Test Item Value Reference Range Interpretation [...] det ection of nucleic acids f rom pdzDZAG-TjP-5 v irus and diagnosis of SA RS-CoV-2 virusinfection. It is an Emergency Use Authorization ( EUA) testauthorized by the U.S. FDA. BASIC METABOLIC [id number] 09:37:00 Test Item Value Reference Range Interpretation [...] = 9.0 mg/dL 8.0-10.5 N CA) PROTHROMBIN HPPD8403-06-16 09:32:00 Test Item Value Reference Range Interpretation [...] (to prevent recurrent infar ct). 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[facility] - XR CHEST 1 [id number] 00:00:00 [facility] 1955 Sex: F FAX: Carmenza Kelly DO [phone] [place]: St: ADM FAX: Mike Scales MD [phone] FAX: Bahman Chopra [phone] Name: LIO WATTS [facility] : 1955 Age/S: 66/F [address] [place] [address] Unit #: [id number] Loc: [place] [address] Phys: Bahman Chopra Acct: [id number] Dis Date: Status: ADM IN PHONE #: [phone] Exam Date: 06/17/2021 1320 FAX #: [phone] Reason: WATCHMAN EXAMS: CPT CODE: [id number] XR CHEST 1 V 03465 PROCEDURE INFORMATION: Exam: XR Chest Exam date [...] Chopra Technologist: RT Taylor(R) Trnscrd Date/Time/By: 06/17/2021 (7491) : By: [email or web address] Orig Print D/T: S: 06/17/2021 (2336) PAGE 1 Signed ReportCOVID 19 Asymptomatic IH [id number] 12:29:00 Test Item Value Reference Range Interpretation [...] high or waivedcomplexit y tests. BASIC METABOLIC [id number] 11:37:00 Test Item Value Reference Range Interpretation [...] code = 9.0 mg/dL 8.0-10.5 N CA) OWETHTGCRK0211-98-90 11:37:00 Test Item Value Reference Range Interpretation Comments PREALBUMIN (test code = PREALB) 24.3 mg/dL 16.0-40.0 N PROTHROMBIN LWAI2741-70-55 11:03:00 Test Item Value Reference Range Interpretation [...] (to prevent recurrent infar ct). CBC W/AUTO VENB3798-09-77 10:59:00 Test Item Value Reference Range Interpretation [...] 3/uL 0.0-0.1 N NRBC#) - CHEST 2 [id number] 00:00:00 [facility] : 1955 Sex: F FAX: Carmenza Kelly DO [phone] [place]: St: PRE FAX: Mike Scales MD [phone] Name: LIO WATTS [facility] : 1955 Age/S: 66/F [address] [place] [address] Unit #: [id number] Loc: [place], [place] [address]Kjwx: Mike Lund MD Acct: [id number] Dis Date: Status: PRE SDC PHONE #: [phone] Exam Date: 06/16/2021 1120 FAX #: [phone] Reason: PREOP EXAMS: CPT CODE: [id number] XR CHEST 2 V 58972 PROCEDURE INFORMATION: Exam: XR Chest Exam date [...] Rahman DO; Mike Lund MD Technologist: Danielle Nix, RT(R) Trnscrd Date/Time/By: 06/16/2021 (9265) : By: [email or web address] Orig Print D/T: S: 06/16/2021 (6492)PAGE 1 Signed ReportGastrointestinal ovozh9554-34-59 04:35:05 Test Item Value Reference Interpretation Comments [...] Rotavirus PCR (test Not Detected code = 6726424) Salmonella PCR (test Not Detected code = [...] PCR Not Detected (test code = 7124) [facility] qdmyfas7433-91-00 19:30:47 Test Item Value Reference Range Interpretation Comments Case number (test [id number] code = 0048902) Surgical pathology See link below for PDF report (test code = Lab Report 2255) Result status (test This is Supplemental code = 7751293) Report for [id number] [facility]KlskfvzkWYSTYAPCEI0911-26-51 16:31:00 Test Item Value Reference Range Interpretation Comments POC Activated Clotting Time (test code 153 s = POC Activated Clotting Time) [facility]YqpwlmtFBSZZQURDZ9940-12-04 16:31:00 Test Item Value Reference Range Interpretation Comments POC Activated Clotting Time (test code 153 s = POC Activated Clotting Time) [facility] CenterOaejgzaBKQOBTHJII1850-23-49 16:31:00 Test Item Value Reference Range Interpretation Comments POC Activated Clotting Time (test code 153 s = POC Activated Clotting Time) [facility] CenterIyeiwbxQVCFEMHERC9115-37-27 16:31:00 Test Item Value Reference Range Interpretation Comments POC Activated Clotting Time (test code 153 s = POC Activated Clotting Time) [facility] CenterLvanjymSKHXCXTAAQ2086-52-63 16:31:00 Test Item Value Reference Range Interpretation Comments POC Activated Clotting Time (test code 153 s = POC Activated Clotting Time) [facility] CenterFauxzsaXVLTWHUJBE9221-77-15 16:31:00 Test Item Value Reference Range Interpretation Comments POC Activated Clotting Time (test code 153 s = POC Activated Clotting Time) [facility] CenterAjvfsvrKDBMHBFCBS5153-15-20 16:31:00 Test Item Value Reference Range Interpretation Comments POC Activated Clotting Time (test code 153 s = POC Activated Clotting Time) [facility] CenterXdfnjwlQHDTSYPGUR0893-10-82 14:37:00 Test Item Value Reference Range Interpretation Comments POC Activated Clotting Time (test code 454 s = POC Activated Clotting Time) [facility] CenterNotwbvsHSNVPKQLBT3980-41-91 14:37:00 Test Item Value Reference Range Interpretation Comments POC Activated Clotting Time (test code 454 s = POC Activated Clotting Time) [facility] CenterLddwpkkNUUFXLWKKA7467-27-36 14:37:00 Test Item Value Reference Range Interpretation Comments POC Activated Clotting Time (test code 454 s = POC Activated Clotting Time) [facility] CenterAaxgawbXBMRVOUBTR7838-92-55 14:37:00 Test Item Value Reference Range Interpretation Comments POC Activated Clotting Time (test code 454 s = POC Activated Clotting Time) [facility] CenterKajvgziZMIGKBNSTD3998-19-18 14:37:00 Test Item Value Reference Range Interpretation Comments POC Activated Clotting Time (test code 454 s = POC Activated Clotting Time) [facility] CenterXqruqojSYVZIRNADE3946-23-13 14:37:00 Test Item Value Reference Range Interpretation Comments POC Activated Clotting Time (test code 454 s = POC Activated Clotting Time) [facility] CenterSefuzrcZGYQBVZYYT2182-49-68 14:37:00 Test Item Value Reference Range Interpretation Comments POC Activated Clotting Time (test code 454 s = POC Activated Clotting Time) [facility] CenterXjhfllsIHRDGOKVYR0635-62-86 14:13:00 Test Item Value Reference Range Interpretation Comments POC Activated Clotting Time (test code 354 s = POC Activated Clotting Time) [place] 563241-04-09 14:13:00 Test Item Value Reference Range Interpretation Comments POC Activated Clotting Time (test code 354 s = POC Activated Clotting Time) [facility] CenterQomqrdqVQVOBNSWYM5196-28-22 14:13:00 Test Item Value Reference Range Interpretation Comments POC Activated Clotting Time (test code 354 s = POC Activated Clotting Time) [facility] CenterTgsliyxSYQHOCPWXM6976-52-40 14:13:00 Test Item Value Reference Range Interpretation Comments POC Activated Clotting Time (test code 354 s = POC Activated Clotting Time) [facility] CenterYwhzdfpUCAZJNHWYL3865-35-70 14:13:00 Test Item Value Reference Range Interpretation Comments POC Activated Clotting Time (test code 354 s = POC Activated Clotting Time) [facility] CenterXlvnuhbKIRKSUVBFZ6585-38-06 14:13:00 Test Item Value Reference Range Interpretation Comments POC Activated Clotting Time (test code 354 s = POC Activated Clotting Time) [facility] CenterCevmhxvPKTOYXWIXG0649-96-13 14:13:00 Test Item Value Reference Range Interpretation Comments POC Activated Clotting Time (test code 354 s = POC Activated Clotting Time) [facility] VSRUFTC1959-81-50 10:37:00Negative (08/29/20 5:37 AM) [facility]annCHEM XKFMN7124-92-17 10:37:26045Lratinbq HermannCHEM PANEL 2020-08-29 10:37:0028[facility] HermannCHEM ZYMUR1267-42-79 10:37:001.01[facility] HermannCHEM WTCDX1255-07-84 10:37:39727Takozfef HermannCHEM JLVHB3487-19-19 10:37:003.8[facility] HermannCHEM IVAID9673-68-33 10:37:89411Onoymvaf HermannCHEM PDFRJ3743-50-73 10:37:0028[facility] HermannCHEM MHDSG5730-73-63 10:37:009.8 [facility]annCHEM HVSAM7803-18-03 10:37:0011.8[facility] HermannCHEM PANEL 2020-08-29 10:37:0059[facility] HermannCHEM BVDSM3239-75-72 10:37:002.9[facility] UpvouswGTEHWJGZJY4123-57-64 10:37:006.8[facility] MbcskxkXELVQKVZYT8066-88-46 10:37:004.47[facility] AnrpjzsNXPJHVJPAU9103-02-54 10:37:0010.6[facility] AKLJNHGNJO6241-04-39 10:37:0034.0[facility] DhrouxiYQOSIWOVBN7492-56-56 10:37:00 76.1[facility] ZjbmaliMESAOUJIXD5343-85-96 10:37:00 Test Item Value Reference Range Interpretation Comments MCH (test code = MCH) 23.8 pg 27.0-31.0 [facility] ClrtawiDECGBKEIEC3813-33-28 10:37:0031.3[facility] HermannHEMATOLOGY 2020-08-29 10:37:0018.2[facility] MtekhatLXFYZMCUTG2887-58-49 10:37:38545Mrlhtfxn XzuqlheZTZTDCCXFL6159-70-17 10:37:007.5[facility] NahllerXNFJNJBPIB7853-69-80 10:37:00 Test Item Value Reference Range Interpretation Comments PT (test code = PT) 12.8 s 12.0-14.7 [facility] WscusvuDDHXKMFAQX8928-13-29 10:37:00 Test Item Value Reference Range Interpretation Comments INR (test code = INR) 0.97 1 0.85-1.17 [facility] SfxlmfrUSFFDIYKFG5896-61-02 10:37:00 Test Item Value Reference Range Interpretation Comments PTT (test code = PTT) 25.0 s 22.9-35.8 [facility] AduqulhZNXAFXRXHL3746-31-31 10:37:0070.5[facility] HermannHEMATOLOGY 2020-08-29 10:37:0018.8[facility] JucwknmHWQJBSYLBX8155-06-39 10:37:009.5[facility] NodstvlRICLIZUHZH7385-87-74 10:37:000.9[facility] VnyyvmzBRWWRTRSDX7861-81-05 10:37:000.3[facility] RshzceeSNUKHGAZSX0566-39-21 10:37:004.8[facility] SBKSETKIOA7549-09-55 10:37:001.3[facility] TeeplwqEXNYKAHRZK9233-31-12 10:37:000.6 [facility] VtpqnwlASHOKOSVCD8504-57-45 10:37:000.1[facility] HermannHEMATOLOGY 2020-08-29 10:37:001+ *ABN*(08/29/20 5:37 AM)[facility] LymhfpxSMDTYSSVLI3642-02-06 10:37:00Not Detected (08/29/20 5:37 AM)[facility] HermannBLOOD BANK RESULTS 2020-08-29 10:37:00Negative (08/29/20 5:37 AM)[facility] HermannCHEM AJIJG0393-82-19 10:37:41769Lpfkiylk HermannCHEM SDFPG4932-48-43 10:37:0028[facility] HermannCHEM EGDEV3264-36-08 10:37:001.01[facility] HermannCHEM AXEOQ3766-46-61 10:37:82799 [facility] HermannCHEM TQCPU6870-83-30 10:37:003.8[facility] HermannCHEM PANEL 2020-08-29 10:37:97262Tdsmogaa HermannCHEM FWXID5329-05-02 10:37:0028[facility] HermannCHEM UWDXA3712-31-77 10:37:009.8[facility] HermannCHEM KLKFS2797-57-94 10:37:0011.8[facility] HermannCHEM HAAVB8005-13-05 10:37:0059[facility] HermannCHEM ZVLNT6524-83-03 10:37:002.9[facility] HbcicvoKLYNCQTIDI5173-96-89 10:37:006.8 [facility] XqlkicdNGYLSSKLXT6535-81-73 10:37:004.47[facility] HermannHEMATOLOGY 2020-08-29 10:37:0010.6[facility] BujpcucXTWBNQTFCB8742-60-74 10:37:0034.0[facility] WhspptrLXKLBDXIQQ0975-71-39 10:37:0076.1[facility] AyssgzzKVTZOPLTVI3207-36-01 10:37:00 Test Item Value Reference Range Interpretation Comments MCH (test code = MCH) 23.8 pg 27.0-31.0 [facility] GcowayvIBWZFCLZMZ5783-24-42 10:37:0031.3[facility] HermannHEMATOLOGY 2020-08-29 10:37:0018.2[facility] CgmrvqlQXJLHEDTAJ8184-57-87 10:37:25093Vtmvvmzk VrczzpeZERFMHHRFF4872-62-24 10:37:007.5[facility] XkoxmddCEWEEXMOJS1879-20-03 10:37:00 Test Item Value Reference Range Interpretation Comments PT (test code = PT) 12.8 s 12.0-14.7 [facility] QrajoisFYPODLULYD6338-92-72 10:37:00 Test Item Value Reference Range Interpretation Comments INR (test code = INR) 0.97 1 0.85-1.17 [facility] TxdrxmuUQRFPNQPYT3762-78-20 10:37:00 Test Item Value Reference Range Interpretation Comments PTT (test code = PTT) 25.0 s 22.9-35.8 Memorial RrrsauuWBLKJYVLSO9040-35-61 10:37:0070.5[facility] HermannHEMATOLOGY 2020-08-29 10:37:0018.8[facility] MpxywhuUUBUKXUZPS8437-16-61 10:37:009.5[facility] WamafnoLAFVMLDEBS5424-41-67 10:37:000.9[facility] UrpmivsOUICALJQSQ9261-55-15 10:37:000.3[facility] BvzasquVRVJUUIRTZ4949-60-05 10:37:004.8[facility] [place] FGTBCWXHAW6841-91-27 10:37:001.3[facility] LmcvmyrNSSLCDMVHD0647-09-12 10:37:000.6 [facility] LzwhmviNIPQPZLILH5333-01-77 10:37:000.1[facility] HermannHEMATOLOGY 2020-08-29 10:37:001+ *ABN*(08/29/20 5:37 AM)[facility] XseqfnaAZDKJXTVHM7487-34-22 10:37:00Not Detected (08/29/20 5:37 AM)[facility] RESULTS 2020-08-29 10:37:00Negative (08/29/20 5:37 AM)[facility] HermannCHEM KDFDO3433-01-22 10:37:74855Rdfrwnux HermannCHEM RCWVF7569-01-92 10:37:0028[facility]annCHEM PYSSN3639-97-10 10:37:001.01[facility] HermannCHEM PYWEB2238-38-11 10:37:94127 [facility]annCHEM HKTGD3087-55-57 10:37:003.8[facility] HermannCHEM PANEL 2020-08-29 10:37:19175Pqnkhrjp HermannCHEM XFVBZ4532-22-89 10:37:0028[facility]annCHEM PPKJC7037-00-04 10:37:009.8[facility]annCHEM KGCJF0690-14-32 10:37:0011.8[facility] HermannCHEM JSWNA1493-11-23 10:37:0059[facility]annCHEM PAHMX5937-60-26 10:37:002.9[facility] RpjbyhdTONCQAZWAQ5836-22-14 10:37:006.8 [facility] BfjzrstOYXVMNOIZO9630-02-57 10:37:004.47[facility]annHEMATOLOGY 2020-08-29 10:37:0010.6[facility] CcyqtssPZRVFLTHMX6537-00-53 10:37:0034.0[facility] MuycngcTHRQEPZNJH9511-96-65 10:37:0076.1[facility] GqcaomjETQOVZEDUQ5931-70-48 10:37:00 Test Item Value Reference Range Interpretation Comments MCH (test code = MCH) 23.8 pg 27.0-31.0 [facility]fab[facility]uUXEJFMUDOD4570-87-79 10:37:0031.3[facility]annHEMATOLOGY 2020-08-29 10:37:0018.2[facility] HhzrrpqZJVZDMFXJV1133-04-50 10:37:27068Ktrdihte NxydmsbECSQFSGJZS3102-31-02 10:37:007.5[facility] HctdtazVBHZMPIJRD8035-13-28 10:37:00 Test Item Value Reference Range Interpretation Comments PT (test code = PT) 12.8 s 12.0-14.7 [facility] VspdayiYHISKTPNSI3776-26-79 10:37:00 Test Item Value Reference Range Interpretation Comments INR (test code = INR) 0.97 1 0.85-1.17 [facility] DdqoqliQAJABMZPAC2104-89-18 10:37:00 Test Item Value Reference Range Interpretation Comments PTT (test code = PTT) 25.0 s 22.9-35.8 [facility] MrbepcwEWAEWOOLCE4759-18-40 10:37:0070.5[facility] 2020-08-29 10:37:0018.8[facility] VgpbkybHWNBKIFGDB5804-33-13 10:37:009.5[facility] GvmqhkjQNOPGQCWBH3019-64-53 10:37:000.9[facility] FataqsxHOPKOSTJPA3663-05-32 10:37:000.3[facility] PemzfshNOVNCAQOJD5438-82-86 10:37:004.8[facility] SMJCZNXQXC2714-24-57 10:37:001.3[facility] AfhaebdCQGWCRVCMN4402-65-38 10:37:000.6 [facility] OduedzqYKVMUAJPJF2107-99-63 10:37:000.1[facility]annHEMATOLOGY 2020-08-29 10:37:001+ *ABN*(08/29/20 5:37 AM)[facility] UkuowsdZUVFHCFHQF6642-87-70 10:37:00Not Detected (08/29/20 5:37 AM)[facility]ann[facility] RESULTS 2020-08-29 10:37:00Negative (08/29/20 5:37 AM)[facility]annCHEM INNDJ1850-56-94 10:37:34849Jwagytdq HermannCHEM ULJNO5075-13-44 10:37:0028[facility]annCHEM NIMRO1062-67-98 10:37:001.01[facility]annCHEM TEBPG6491-44-97 10:37:35596 [facility]ann[facility] AUPJV5396-14-57 10:37:003.8[facility]annCHEM PANEL 2020-08-29 10:37:37395Nnmkrkic HermannCHEM VXMAV3440-37-36 10:37:0028[facility]annCHEM BIFQM0802-45-60 10:37:009.8[facility]annCHEM SDYJJ6329-63-56 10:37:0011.8[facility]annCHEM GYLYJ1929-77-34 10:37:0059[facility]annCHEM XOJHY3536-13-73 10:37:002.9[facility] LcllvqtFQTZPAWGUD1312-05-13 10:37:006.8 [facility] NakendyTDAFKWLTVD4137-17-17 10:37:004.47[facility]annHEMATOLOGY 2020-08-29 10:37:0010.6[facility] GxbxxghIDWZVSHLHG3891-96-06 10:37:0034.0[facility] RntuahiDERMVCIONU5956-92-71 10:37:0076.1[facility] EdbrezbRZNKVKUFXE7186-09-70 10:37:00 Test Item Value Reference Range Interpretation Comments MCH (test code = MCH) 23.8 pg 27.0-31.0 [facility] AfpyeblMGHYSHIFPF2024-83-31 10:37:0031.3[facility]annHEMATOLOGY 2020-08-29 10:37:0018.2[facility] DbchjfxPLNJPEECBB7242-55-38 10:37:02638Knbprbry CgriznnGRDGZHVDUK4991-77-12 10:37:007.5[facility] LaqmkdoXZFLVYWYCQ2061-64-66 10:37:00 Test Item Value Reference Range Interpretation Comments PT (test code = PT) 12.8 s 12.0-14.7 [facility] WbtlebmBYWRAVPSMT9218-25-35 10:37:00 Test Item Value Reference Range Interpretation Comments INR (test code = INR) 0.97 1 0.85-1.17 [facility] RktbmkkFXTYHTGMQK2764-77-65 10:37:00 Test Item Value Reference Range Interpretation Comments PTT (test code = PTT) 25.0 s 22.9-35.8 [facility] BvmjsdfSKTTRLTEKY8421-37-55 10:37:0070.5[facility]annHEMATOLOGY 2020-08-29 10:37:0018.8[facility] CshdmxnVZFCIRCAFW1745-60-01 10:37:009.5[facility] RexgaegYYVQHBHSWS8708-01-12 10:37:000.9[facility] WvgctdhQXSLUCLPVJ7686-25-97 10:37:000.3[facility] ZpprmmkBELUBYUBUN9807-37-42 10:37:004.8[facility] WDZOQJYYQU1641-09-25 10:37:001.3[facility] JsikmdqXKQQFNFTVC7741-81-68 10:37:000.6 [facility] ChvbkitEQLFYURZGV3771-57-43 10:37:000.1[facility]annHEMATOLOGY 2020-08-29 10:37:001+ *ABN*(08/29/20 5:37 AM)[facility] JoumylnWKWCOMQKQY4522-99-68 10:37:00Not Detected (08/29/20 5:37 AM)[facility]annBL[facility] BANK RESULTS 2020-08-29 10:37:00Negative (08/29/20 5:37 AM)[facility]annCHEM WZZJQ4664-03-55 10:37:53839Tbcozobk HermannCHEM WHCMU0238-87-69 10:37:0028[facility] HermannCHEM ISADY8201-92-05 10:37:001.01[facility] HermannCHEM FIFUM6765-94-42 10:37:01742 [facility]annCHEM SPDOG8107-43-72 10:37:003.8[facility] HermannCHEM PANEL 2020-08-29 10:37:77077Kggumiom HermannCHEM MPYNO4054-51-33 10:37:0028[facility] HermannCHEM GQJKG9419-45-35 10:37:009.8[facility] HermannCHEM DJRWY4461-25-18 10:37:0011.8[facility] HermannCHEM RVCCU3539-68-92 10:37:0059[facility]annCHEM PRJND8516-60-79 10:37:002.9[facility] WlsszwlDVNQQSXMNP6503-21-02 10:37:006.8 [facility] VorirgwNZTIQUAFSU6654-09-97 10:37:004.47[facility]annHEMATOLOGY 2020-08-29 10:37:0010.6[facility] SdqsccuBAGQTIULRT7677-45-44 10:37:0034.0[facility] CyjxdsbOQOWUKHJWR5726-55-44 10:37:0076.1[facility] LabvwpuKDTWHLHGHW6788-40-84 10:37:00 Test Item Value Reference Range Interpretation Comments MCH (test code = MCH) 23.8 pg 27.0-31.0 [facility] PpvutlbEMCIEBALLL8869-91-57 10:37:0031.3[facility]annHEMATOLOGY 2020-08-29 10:37:0018.2[facility] KvcvhywWDNGCPCRPH6036-94-54 10:37:58172Frhitbrp JggmtsqJGRCGEGXNE2802-46-36 10:37:007.5[facility] HjbmyxoZNREIKORFG1245-79-56 10:37:00 Test Item Value Reference Range Interpretation Comments PT (test code = PT) 12.8 s 12.0-14.7 [facility] HejlkhuNGRNXMGACV8047-71-76 10:37:00 Test Item Value Reference Range Interpretation Comments INR (test code = INR) 0.97 1 0.85-1.17 [facility] DjsmmmkRXWFBBAQWX1440-16-23 10:37:00 Test Item Value Reference Range Interpretation Comments PTT (test code = PTT) 25.0 s 22.9-35.8 [facility] CtgwnjfDYKJXXHVKR4154-72-61 10:37:0070.5[facility]annHEMATOLOGY 2020-08-29 10:37:0018.8[facility] VvelehqHFXHBBSDJM5081-93-81 10:37:009.5[facility] XlmzpabQTESYRQDGJ7082-66-99 10:37:000.9[facility] ArkilkvKIIETUKSUI3223-45-55 10:37:000.3[facility] JztscjtNEZAEOEMLV1457-34-29 10:37:004.8[facility] IHJCKOLYKI8214-51-10 10:37:001.3[facility] XlfrzimABDQSPRHTW3590-22-57 10:37:000.6 [facility] VqjptspRZYBQXANJO0190-37-19 10:37:000.1[facility]annHEMATOLOGY 2020-08-29 10:37:001+ *ABN*(08/29/20 5:37 AM)[facility] TsuevddTBIDFUSONR4110-05-33 10:37:00Not Detected (08/29/20 5:37 AM)[facility]annBLO[facility] BANK RESULTS 2020-08-29 10:37:00Negative (08/29/20 5:37 AM)[facility] HermannCHEM IQCLU0342-75-69 10:37:34245Nmrobfpl HermannCHEM YOTBP8449-37-02 10:37:0028[facility] HermannCHEM ZZDMT7673-16-18 10:37:001.01[facility] HermannCHEM DEYVU8302-39-67 10:37:31973 [facility]annCHEM OPIKC8803-91-41 10:37:003.8[facility] HermannCHEM PANEL 2020-08-29 10:37:86852Vtnpxsyt HermannCHEM BGZYL4278-15-24 10:37:0028[facility]annCHEM NXEKE8224-64-91 10:37:009.8[facility] HermannCHEM JPHVT9228-08-33 10:37:0011.8[facility] HermannCHEM GOPFI9199-42-21 10:37:0059[facility]annCHEM PHDKS1395-78-20 10:37:002.9[facility] TqntritRDIGDQDBTV8739-09-30 10:37:006.8 [facility] OwmgrtnEVXSFNXZPR7075-60-32 10:37:004.47[facility]annHEMATOLOGY 2020-08-29 10:37:0010.6[facility] KlvckxjXYAEWTKVHW8867-15-01 10:37:0034.0[facility] BwxlutvNGREWFUXCK6053-01-76 10:37:0076.1[facility] CwbbsicPAYRKRBKIW8429-42-54 10:37:00 Test Item Value Reference Range Interpretation Comments MCH (test code = MCH) 23.8 pg 27.0-31.0 [facility] TofzebfUOJMINBZGR7465-57-04 10:37:0031.3[facility]annHEMATOLOGY 2020-08-29 10:37:0018.2[facility] DuxaiinMICZLDRQYA5796-21-04 10:37:34326Trebjtkm ZopmyodBDFLFQTVUC6080-07-73 10:37:007.5[facility] LwpdpzaLIQDBGKTJU1665-21-33 10:37:00 Test Item Value Reference Range Interpretation Comments PT (test code = PT) 12.8 s 12.0-14.7 [facility] YopnpxfIYGGXCPLGV3760-91-79 10:37:00 Test Item Value Reference Range Interpretation Comments INR (test code = INR) 0.97 1 0.85-1.17 [facility] LfrhxhtLRXJMDKOWX3796-55-28 10:37:00 Test Item Value Reference Range Interpretation Comments PTT (test code = PTT) 25.0 s 22.9-35.8 [facility] MojveqjKUXEQYZIUU3114-48-88 10:37:0070.5[facility]annHEMATOLOGY 2020-08-29 10:37:0018.8[facility] MgqoblcOMVLWCZZHZ4847-76-19 10:37:009.5[facility] EyokwvvMSPNQRFIHE9180-95-84 10:37:000.9[facility] WeyzuaeSYZOABTRXA1759-62-11 10:37:000.3[facility] ZcxbjbmGGACQSVGOI1267-67-64 10:37:004.8[facility] NNYIZIFYXT8859-42-80 10:37:001.3[facility] ZihwqilZPJIKTQVDZ8748-58-65 10:37:000.6 [facility] NknpehcDWKDTKLCTK4901-93-41 10:37:000.1[facility]annHEMATOLOGY 2020-08-29 10:37:001+ *ABN*(08/29/20 5:37 AM)[facility] EqsxthrMZQBQQMASN5569-39-24 10:37:00Not Detected (08/29/20 5:37 AM)[facility]annBLOOD BANK RESULTS 2020-08-29 10:37:00Negative (08/29/20 5:37 AM)[facility] HermannCHEM GDEEN9339-03-06 10:37:03250Deqolskp HermannCHEM TROLS2096-12-41 10:37:0028[facility] HermannCHEM ZOXQK0551-87-53 10:37:001.01[facility] HermannCHEM TAHRN9725-24-98 10:37:39534 [facility]annCHE[facility] XSNYR8945-44-92 10:37:003.8[facility] HermannCHEM PANEL 2020-08-29 10:37:52006Ajoxguar HermannCHEM TYOMV8341-38-47 10:37:0028[facility] HermannCHEM AHDIR7680-89-39 10:37:009.8[facility] HermannCHEM JUNIL5038-48-40 10:37:0011.8[facility] HermannCHEM VASHA2972-32-77 10:37:0059[facility]annCHEM PTCRD1833-96-73 10:37:002.9[facility] YnbjnpoWKLOKHSKSY1081-39-83 10:37:006.8 [facility] SitmcdgWPGXYPEEPQ6622-44-67 10:37:004.47[facility]annHEMATOLOGY 2020-08-29 10:37:0010.6[facility] NztinwoQFOLSKOMRC7568-03-59 10:37:0034.0[facility] AdumppfNCTKLMZCAC9806-29-90 10:37:0076.1[facility] OffhhsbXGFDGBEXTS5254-32-24 10:37:00 Test Item Value Reference Range Interpretation Comments MCH (test code = MCH) 23.8 pg 27.0-31.0 [facility] OuarhowHKMNANVZCG7422-51-24 10:37:0031.3[facility]annHEMATOLOGY 2020-08-29 10:37:0018.2[facility] PebuemmIFJTDBMFQO6583-35-47 10:37:21788Twhiuggd QimwnhsMLOSZSFCGD5723-36-87 10:37:007.5[facility] DjfzqrwIZTPWKBGHE8310-72-08 10:37:00 Test Item Value Reference Range Interpretation Comments PT (test code = PT) 12.8 s 12.0-14.7 [facility] IkdekdwYHNLVXYDER9578-09-90 10:37:00 Test Item Value Reference Range Interpretation Comments INR (test code = INR) 0.97 1 0.85-1.17 [facility] ZbmccwwGAAJWDGOVC3943-72-26 10:37:00 Test Item Value Reference Range Interpretation Comments PTT (test code = PTT) 25.0 s 22.9-35.8 [facility] DheyumhLLRMRUITDM2185-44-55 10:37:0070.5[facility]annHEMATOLOGY 2020-08-29 10:37:0018.8[facility] GwepeolAXGDIUGYAK3568-02-80 10:37:009.5[facility] EtcmsvaOWZWRFFHYO7864-83-08 10:37:000.9[facility] JyuxzlgRZLAZKNRER6112-54-26 10:37:000.3[facility] YtcatrzNMZYXEZGDP8661-24-04 10:37:004.8[facility] EZKZFJUKPY8058-93-66 10:37:001.3[facility] KxbfhpcZFWVXHESIS9056-09-87 10:37:000.6 [facility] LuzdexdRJDPVXQUTS4547-51-44 10:37:000.1[facility]annHEMATOLOGY 2020-08-29 10:37:001+ *ABN*(08/29/20 5:37 AM)[facility] EbndhyaAXYYNUKZQJ5410-21-32 10:37:00Not Detected (08/29/20 5:37 AM)[facility]icsCHLAMYDIA, GC, TV,PCR, IN SLJVT4107-14-60 15:38:00 Test Item Value Reference Range Interpretation Comments FT (test code = CHTR) Not detected (qualifier Not Detected N value) FT (test code = Not detected (qualifier Not Detected N NGONO) value) FT (test code = TRVG) Not detected (qualifier Not Detected N value) [facility] EOPMAAJBUGE9544-80-98 10:57:00 Test Item Value Reference Range Interpretation Comments Color (test code = UCOLR) Dk. Yellow Clarity (test code = UCLAR) Hazy Glucose (test code = UGLUC) NEGATIVE NEGATIVE N Bilirubin (test code = UBILI) NEGATIVE NEGATIVE N Ketones (test code = UKET) NEGATIVE NEGATIVE N Specific [place] (test code = 1.025 1.005-1.030 A USPGR) [...] Seen None Seen N URCRYS) [facility]"
[2022-04-21] MEDS ORDERED: ONDANSETRON 4 MG (ODT) TAB ONE (22:27)
[2022-04-21] MEDS ORDERED: HYDROCODONE/APAP 10/325 TAB ONE (22:27)
--- NOTE | 2022-04-21 23:23 | ER ---
Nurse's Notes [facility] Name: Marjan Kolb Age: 67 yrs Sex: Female : 1955 Arrival Date: 04/21/2022 Time: 22:02 Bed 15 Private MD: Diagnosis: Laceration without foreign body of right forearm;Laceration without foreign body of right hand Presentation: 04/21 22:10 Chief complaint: Patient states: I was here this morning for a fall but it just hurts kd3 so bad that I cant stand it. Coronavirus screen: Vaccine status: Patient reports receiving the 2nd dose of the covid vaccine. Ebola Screen: No symptoms or risks identified at this time. Initial Sepsis Screen: Does the patient meet any 2 criteria? No. Patient's initial sepsis screen is negative. Does the patient have a suspected source of infection? No. Patient's initial sepsis screen is negative. Risk Assessment: Do you want to hurt yourself or someone else? Patient reports no desire to harm self or others. Onset of symptoms was April 21, 2022. 22:10 Method Of Arrival: Wheelchair kd3 22:10 Acuity: BLAYNE 5 kd3 Triage Assessment: 22:12 General: Appears in no apparent distress. Behavior is calm, cooperative. Pain: kd3 Complains of pain in right arm. Neuro: Level of Consciousness is awake, alert, obeys commands, Oriented to person, place, time, situation. Cardiovascular: Capillary refill < 3 seconds in bilateral fingers Patient's skin is warm and dry. Respiratory: Airway is patent Trachea midline Respiratory effort is even, unlabored, Respiratory pattern is regular, symmetrical. Historical: - Allergies: 22:12 Bactrim DS; kd3 22:12 butorphanol tartrate; kd3 22:12 Fentanyl; kd3 22:12 Stadol; kd3 22:12 sulfamethoxazole (bulk); kd3 22:12 TRIMETHOPRIM; kd3 22:12 Reglan; kd3 - PMHx: 22:12 Anxiety; Atrial Fib; Chronic pain; esophageal varices; Hypertension; Panic Attacks; kd3 Migraines; COPD; Hepatitis; Bipolar disorder; HIV; - PSHx: 22:12 hernia repair; R wrist SX; Bilateral shoulder repair; Appendectomy; Cholecystectomy; kd3 - Immunization history:: Adult Immunizations up to date, Client reports receiving the 2nd dose of the Covid vaccine. - Social history:: Smoking status: unknown. Screenin:15 Abuse screen: Denies threats or abuse. Nutritional screening: No deficits noted. pf1 Tuberculosis screening: No symptoms or risk factors identified. Fall Risk Fall in past 12 months (25 points). Gait- Normal/Bed Rest/Wheelchair (0 pts). Assessment: 22:15 General: Appears in no apparent distress. uncomfortable, well developed, Behavior is pf1 calm, cooperative, appropriate for age, quiet. 22:15 Pain: Complains of pain in palmar aspect of right forearm and right hand and right arm pf1 Pain currently is 9 out of 10 on a pain scale. Pain began Patient stated fell this morning and was seen and treated here at the ER. Neuro: No deficits noted. Cardiovascular: No deficits noted. Respiratory: No deficits noted. GI: No deficits noted. : No deficits noted. EENT: No deficits noted. Derm: Skin is thin, has skin tears on Patient has multiple skin tears to right forearm and right hand with multiple Steri-Strips applied in the ER this morning. Bruising that is dark purple, on palmar aspect of right forearm and right hand and right arm. Vital Signs: 22:10 BP 149 / 93; Pulse 67; Resp 19; Temp 98.9(O); Pulse Ox 97% on R/A; Weight 79.83 kg; kd3 22:39 BP 146 / 89; Pulse 68; Resp 18; Temp 98.5; Pulse Ox 100% ; Pain 9/10; pf1 ED Course: 22:02 Patient arrived in ED. dt4 22:04 Justus Kolb MD is Attending Physician. thomas 22:12 Triage completed. kd3 22:12 Arm band placed on right wrist. kd3 22:15 Patient has correct armband on for positive identification. Bed in low position. Call pf1 light in reach. 22:15 Dressings: Band aid x 1 right hand Kerlix X 1; palmar aspect of right forearm and right pf1 hand and right arm non-adherent dressing x 4 palmar aspect of right forearm and right hand and right arm. 22:18 Chance Rahman MD is Referral Physician. thomas 22:21 Kay flowers RN is Primary Nurse. pf1 22:41 No provider procedures requiring assistance completed. Patient did not have IV access pf1 during this emergency room visit. Administered Medications: 22:15 Drug: Neosporin (qljfvacs-sglhheyywc-agyouxihu) Ointment 1 application Route: Topical; pf1 Site: right forearm; 22:40 Follow up: Response: No adverse reaction pf1 22:25 Drug: Zofran (Ondansetron) 4 mg Route: PO; pf1 22:40 Follow up: Response: No adverse reaction pf1 22:30 Drug: [place] (HYDROcodone-acetaminophen) 10 mg-325 mg 1 tabs Route: PO; pf1 22:40 Follow up: Response: Pain is unchanged, physician notified pf1 Medication: 22:15 VIS not applicable for this client. pf1 Outcome: 22:19 Discharge ordered by . thomas 22:43 Discharged to home via wheelchair, with significant other. pf1 22:43 Condition: unchanged 22:43 Discharge instructions given to patient, Instructed on discharge instructions, follow up and referral plans. medication usage, Demonstrated understanding of instructions, follow-up care, medications, wound care, Prescriptions given X 1. 22:44 Patient left the ED. pf1 Signatures: Justus Kolb MD MD cha Doucette, Kyli, RN RN kd3 Bianca Watson dt4 Kay flowers, RN RN pf1
--- NOTE | 2022-04-21 23:23 | EDPHYS ---
Physician Documentation [facility] Name: Marjan Kolb Age: 67 yrs Sex: Female : 1955 Arrival Date: 04/21/2022 Time: 22:02 Bed 15 Private MD: Justus Cervantes HPI: 04/21 22:11 This 67 yrs old Female presents to ER via Unassigned with complaints of Fall thomas Injury, Laceration To Arm. 22:11 Details of fall: The patient fell from an upright position, while walking. Onset: The thomas symptoms/episode began/occurred yesterday. Associated injuries: The patient sustained ecchymosis, laceration, painful injury. Severity of symptoms: At their worst the symptoms were mild, in the emergency department the symptoms are unchanged. The patient has not experienced similar symptoms in the past. Historical: - Allergies: 22:12 Bactrim DS; kd3 22:12 butorphanol tartrate; kd3 22:12 Fentanyl; kd3 22:12 Stadol; kd3 22:12 sulfamethoxazole (bulk); kd3 22:12 TRIMETHOPRIM; kd3 22:12 Reglan; kd3 - PMHx: 22:12 Anxiety; Atrial Fib; Chronic pain; esophageal varices; Hypertension; Panic Attacks; kd3 Migraines; COPD; Hepatitis; Bipolar disorder; HIV; - PSHx: 22:12 hernia repair; R wrist SX; Bilateral shoulder repair; Appendectomy; Cholecystectomy; kd3 - Immunization history:: Adult Immunizations up to date, Client reports receiving the 2nd dose of the Covid vaccine. - Social history:: Smoking status: unknown. ROS: 22:11 Constitutional: Negative for fever, chills, and weight loss, Eyes: Negative for injury, thomas pain, redness, and discharge, ENT: Negative for injury, pain, and discharge, Neck: Negative for injury, pain, and swelling, Cardiovascular: Negative for chest pain, palpitations, and edema, Respiratory: Negative for shortness of breath, cough, wheezing, and pleuritic chest pain, Abdomen/GI: Negative for abdominal pain, nausea, vomiting, diarrhea, and constipation, Back: Negative for injury and pain, : Negative for injury, bleeding, discharge, and swelling, Skin: Negative for injury, rash, and discoloration, Neuro: Negative for headache, weakness, numbness, tingling, and seizure, Psych: Negative for depression, anxiety, suicide ideation, homicidal ideation, and hallucinations, Allergy/Immunology: Negative for hives, rash, and allergies, Endocrine: Negative for neck swelling, polydipsia, polyuria, polyphagia, and marked weight changes, Hematologic/Lymphatic: Negative for swollen nodes, abnormal bleeding, and unusual bruising. 22:11 MS/extremity: Positive for decreased range of motion, ecchymosis, pain, of the right hand and palmar aspect of right forearm. Exam: 22:11 Constitutional: This is a well developed, well nourished patient who is awake, alert, thomas and in no acute distress. Head/Face: Normocephalic, atraumatic. Eyes: Pupils equal round and reactive to light, extra-ocular motions intact. Lids and lashes normal. Conjunctiva and sclera are non-icteric and not injected. Cornea within normal limits. Periorbital areas with no swelling, redness, or edema. ENT: Nares patent. No nasal discharge, no septal abnormalities noted. Tympanic membranes are normal and external auditory canals are clear. Oropharynx with no redness, swelling, or masses, exudates, or evidence of obstruction, uvula midline. Mucous membranes moist. Neck: Trachea midline, no thyromegaly or masses palpated, and no cervical lymphadenopathy. Supple, full range of motion without nuchal rigidity, or vertebral point tenderness. No Meningismus. Chest/axilla: Normal chest wall appearance and motion. Nontender with no deformity. No lesions are appreciated. Cardiovascular: Regular rate and rhythm with a normal S1 and S2. No gallops, murmurs, or rubs. Normal PMI, no JVD. No pulse deficits. Respiratory: Lungs have equal breath sounds bilaterally, clear to auscultation and percussion. No rales, rhonchi or wheezes noted. No increased work of breathing, no retractions or nasal flaring. Abdomen/GI: Soft, non-tender, with normal bowel sounds. No distension or tympany. No guarding or rebound. No evidence of tenderness throughout. Back: No spinal tenderness. No costovertebral tenderness. Full range of motion. Female : Normal external genitalia. MS/ Extremity: Pulses equal, no cyanosis. Neurovascular intact. Full, normal range of motion. Neuro: Awake and alert, GCS 15, oriented to person, place, time, and situation. Cranial nerves II-XII grossly intact. Motor strength 5/5 in all extremities. Sensory grossly intact. Cerebellar exam normal. Normal gait. Psych: Awake, alert, with orientation to person, place and time. Behavior, mood, and affect are within normal limits. 22:11 Skin: Appearance: normal except for affected area, injury, contusion(s), laceration(s), the wound is approximately 10 cm(s), with a depth of .025 cm(s), of the right arm. Vital Signs: 22:10 BP 149 / 93; Pulse 67; Resp 19; Temp 98.9(O); Pulse Ox 97% on R/A; Weight 79.83 kg; kd3 22:39 BP 146 / 89; Pulse 68; Resp 18; Temp 98.5; Pulse Ox 100% ; Pain 9/10; pf1 MDM: 22:04 Patient medically screened. [facility] 22:17 Differential diagnosis: abrasion, contusion, laceration, multiple trauma, sprain, thomas strain. Data reviewed: vital signs, nurses notes, lab test result(s), EKG, radiologic studies, plain films. Data interpreted: satellite project site monitor: not applicable for this patient encounter. rate is 67 beats/min, rhythm is regular, Pulse oximetry: on room air is 97 %. Counseling: I had a detailed discussion with the patient and/or guardian regarding: the historical points, exam findings, and any diagnostic results supporting the discharge/admit diagnosis, radiology results, the need for outpatient follow up, for definitive care, a general surgeon. 04/21 22:18 Order name: Wound Care; Complete Time: 22:22 thomas 04/21 22:18 Order name: Ice pack; Complete Time: 22:22 [facility] Administered Medications: 22:15 Drug: Neosporin (yyguvkzn-yvjcldcews-tbutemzuu) Ointment 1 application Route: Topical; pf1 Site: right forearm; 22:40 Follow up: Response: No adverse reaction pf1 22:25 Drug: Zofran (Ondansetron) 4 mg Route: PO; pf1 22:40 Follow up: Response: No adverse reaction pf1 22:30 Drug: [place] (HYDROcodone-acetaminophen) 10 mg-325 mg 1 tabs Route: PO; pf1 22:40 Follow up: Response: Pain is unchanged, physician notified pf1 Disposition Summary: 04/21/22 22:19 Discharge Ordered Location: Home [facility] Problem: new thomas Symptoms: have improved thomas Condition: Stable thomas Diagnosis - Laceration without foreign body of right forearm thomas - Laceration without foreign body of right hand thomas Followup: thomas - With: Private Physician - When: 2 - 3 days - Reason: Recheck today's complaints, Continuance of care, Re-evaluation by your physician Followup: thomas - With: Chance Rahman MD - When: 2 - 3 days - Reason: Recheck today's complaints, Continuance of care, Re-evaluation by your physician Discharge Instructions: - Discharge Summary Sheet thomas - Laceration Care, Adult thomas - Laceration Care, Adult, Syln-jn-Cqqo [facility] Forms: - Medication Reconciliation Form thomas - Thank You Letter thomas - Antibiotic Education thomas - Prescription Opioid Use thomas Prescriptions: - Zofran 4 mg Oral Tablet - take 1 tablet by ORAL route every 12 hours As needed; 20 tablet; Refills: 0, thomas Product Selection Permitted Signatures: Justus Kolb MD MD cha Doucette, Kyli, RN RN kd3 Kay flowers RN RN pf1
[2022-04-21 23:32] VITALS: BP 146/89; TEMP 98.5; O2SAT 100
== END 2022-04-21 22:44 | disposition home or self-care (01) ==
LOC: SUPCPDRO 21:58 → ER 21:58
DX: S61.411A Laceration without foreign body of right hand, initial encounter (principal); S51.811A Laceration without foreign body of right forearm, initial encounter
CPT/HCPCS: 99283; Q0162

== ENCOUNTER 2022-04-23 17:45 | Emergency (ER) | payer OTHER ==
--- OUTSIDE RECORDS SUMMARY | 2022-04-23 18:01 | XMS REPORT | Continuity of Care Document ---
:1955 Author Organization [facility] t Address [address] [place] [address] Care Team Providers Name Role Phone Urmila Rahman Primary Care Physician ELAN ALVARADO Attending Clinician Unavailable BEVERLY LAYTON Attending Clinician Unavailable SANTIAGO CARDENAS Attending Clinician Unavailable PAULETTE GRAY S Attending Clinician Unavailable Paulette Galvan S Attending Clinician UNKNOWN, ATTENDING Attending Clinician Unavailable Robbi Bal Attending Clinician Santiago Sanchez Attending Clinician [facility] Attending Clinician Unavailable Isaias Whiteside RN Attending Clinician Unavailable TOMY MARIE Attending Clinician Unavailable Reilly Means MD Attending Clinician Ofe Shields MD Attending Clinician Tomy Marie MD Attending Clinician Doctor Unassigned, [place] Attending Clinician Unavailable Bill COLES Attending Clinician Unavailable Bill Rose Attending Clinician CHARITY MCALLISTER Attending Clinician Unavailable Charity Mcallister MD Attending Clinician GADIEL KOEHLER Attending Clinician Unavailable Mike Lund Attending Clinician Unavailable NIKOLAI REEVES Attending Clinician Unavailable Eliseo Arce MD Attending Clinician Carol Ann IZQUIERDO, Sarai Lieberman Attending Clinician [phone] Ashly Pelletier MA Attending Clinician Unavailable Dagoberto Bass MD Attending Clinician [place] Evangelista Attending Clinician Lab, [facility] Pob I Attending Clinician Unavailable Monica Rodas MA Attending Clinician Unavailable Agustina Ortiz MA Attending Clinician Unavailable Rody Maguire RN Attending Clinician Unavailable Kirit Flood MD, V. Attending Clinician [place] Attending Clinician Unavailable Gloria Hinojosa Attending Clinician Michael Hagen RN Attending Clinician Unavailable Team, [facility] Attending Clinician UnavailDO PORSHA Newell Attending Clinician Unavailable Gadiel Koehler MD Attending Clinician Tyrone JENKINS, Eveline Sierra Attending Clinician Stanislav RAMIREZ, Eladio Inman Attending Clinician Unavailable eLyda Willis Attending Clinician [phone] Selvin RAMIREZ, Stefanie Attending Clinician Unavailable TOMY MARIE Admitting Clinician Unavailable Becca JENKINS, Tomy Admitting Clinician Bill COLES Admitting Clinician Unavailable RahmanLele bird Kristen Admitting Clinician Unavailable Mike Lund Admitting Clinician Unavailable ELISEO ARCE Admitting Clinician Unavailable DO PORSHA STREETER Admitting Clinician Unavailable Payers Payer Name Policy Type Policy Number Effective Date Expiration Date S gabino [facility] [id number] 2012 STAR PLUS OON 00:00:00 [facility] [id number] 2019 DUAL COMPLETE HMO 00:00:00 [facility] [id number] 2019 PLUS 00:00:00 MEDICAID [facility] [id number] 2020 00:00:00 [employer] [facility] [id number] 2019 [facility]ALTH [facility] 00:00:00 [employer] MEDICARE ADV [id number] 2019 2019 00:00:00 00:00:00 Problems Condition Condition Condition Status Onset Resolution Last Treating Co mments Source Name Details Category Date Date Treatment Clinician Date Dyspnea, Dyspnea, Disease Active Unive rs unspecifie unspecifie 02-11 it y of d type d type 00:00: [place] [address] Medical Branch Gastropare Gastropare Disease Active Overview : Methodi sis sis 4-[address] 00:00: [facility] note l might be different from the original. Added automatic ally from request for surgery [id number] Dysphagia Dysphagia Disease Active Overview: Methodi 4-[address] 00:00: g of this [facility] 00 note l might be different from the original. 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 00:00: [place] virus virus Medical (HIV) (HIV) Branch disease [...] SV N/V [facility] hoxazole 1-25 Clear 00:00: [address] trimetho DA Active SV [facility] prim 1-25 Clear 00:00: [facility] codeine DA Active SV N/V [facility] 1-25 Clear 00:00: [facility] Metoclop Propensi Active UT ramide ty to [...] s to drug METOCLOP DRUG Active Anxiety 2014-0 Univers RAMIDE [...] Date Stop Date Source Natural father Diabetes [facility] Natural father Other - see comments [facility] Natural father [facility] Natural father Hy[facility] Natural [facility] Natural mother [facility]ominational [facility] Social History Social Habit Start Date Stop Date Quantity Comments Source History SDOH Denominational Alcohol Frequency Hospita l History SDOH Denominational Alcohol Std Drinks Hospit al History SDOH [facility] Tobacco use and 2022-02-11 2022-02-11 Former smokeless Uni versity of exposure 00:00:00 00:00:00 tobacco user [facility] Tobacco Comment 2022-02-11 2022-02-11 Smokes approx 1-2 Un iversity of 00:00:00 00:00:00 cigarettes per [facility] day when she Branch smokes Exposure to 2022-01-31 2022-02-10 Not sure University of SARS-CoV-2 (event) 00:00:00 22:53:00 [facility] Alcohol intake 2020-12-08 2020-12-08 Current drinker [facility] 00:00:00 00:00:00 of alcohol Hospital (finding) Cigarettes smoked 2020-09-05 2020-09-[address] current [facility] - [facility]orted Cigarette 2020-09-05 2020-09-05 Denominational pack-years 00:00:00 00:00:00 Hospital Alcohol Comment 2016-09-23 2016-09-23 rare Denominational 00:00:00 00:00:00 Hospital History of tobacco 2011-09-29 User of smokeless University of use 00:00:00 tobacco [facility] Sex Ass[birth year] At [birth year] [facility] 00:00:00 00:00:00 Smoking Status Start Date Stop Date Source Ex-smoker 2022-02-11 00:00:00 2022-02-11 00:00:00 Universi ty of [facility] Medications Ordered Filled Start Stop Current Ordering Indication Dosage Frequency Signature Comments Components Source Medication Medication Date Date Medication? Clinician (SIG) Name Name ondansetron 2021-05 4mg 4 mg, Univ ers (ZOFRAN-ODT 06-23 Oral, ity of ) 22:45: 21:53 ONCE, 1 [place] disintegrat 00 :00 dose, On Medi porfirio ing tablet [place] [facility] 4 mg 04/22/22 at 1645, Routine amoxicillin 2021-05 Yes [id number] 1{tbl} Take 1 Univers -clavulanat 2- [id number] tablet by i ty of e 875-125 00:00: mouth [place] mg per 00 every 12 Medical tablet (twelve) Branch hours. ondansetron 2021-05 Yes [id number] 4mg Take 1 Univers 4 mg 2 [id number] tablet by ity of disintegrat 00:00: mouth [place] ing tablet 00 every 8 Medica l (eight) Branch hours as needed for Nausea and Vomiting (N/V). zoster 2021-05- Yes [id number] .5mL 0.5 mL by Univers vaccine, 0-14 10-15 9104 Intramuscu ity of recombinant 00:00: 04:59 lar route [place] (SHINGRIX, 00 :00 once now Medic al PF,) for 1 Branch injection dose. And repeat in 2-6 months hydralAZINE Yes 25mg Take 25 mg Univers (APRESOLINE 9-27 by mouth ity of ) 25 mg 19:28: daily. [place] tablet 04 Medical Branch lisinopril 0 Yes 40mg Take 40 mg U nivers (PRINIVIL,Z 9-27 by mouth 2 it y of ESTRIL) 40 19:28: (two) [place] mg tablet 04 times Medical daily. Branch metoprolol Yes 100mg Take 100 Un matt tartrate 9-27 mg by ity of (LOPRESSOR) 19:28: mouth 2 [place] 100 mg 04 (two) Medical tablet times Branch daily. amLODIPine Yes 10mg Take 10 mg U nivers (NORVASC) 9- by mouth ity of 10 mg 19:28: daily. [place] tablet 04 Medical Branch clonazePAM 0 Yes 1mg Take 1 mg Un matt (KLONOPIN) 9- by mouth ity o f 1 mg tablet 19:28: at [place] [address] bedtime. Medical Branch traZODone 0 Yes 50mg Take 50 mg Un matt 100 mg 9-27 by mouth ity of tablet 19:28: at [place] [address] bedtime. Medical Branch hydralAZINE 0 Yes 25mg Take 25 mg Univers (APRESOLINE 9-27 by mouth ity of ) 25 mg 19:28: daily. [place] tablet 04 Medical Branch lisinopril 0 Yes 40mg Take 40 mg [...] o f 1 mg tablet 19:28: at [place] [address] bedtime. Medical Branch traZODone 2021-0 Yes 50mg Take 50 mg Un matt 100 mg 9-27 by mouth ity of tablet 19:28: at [place] [address] bedtime. Medical Branch hydralAZINE 2021-0 Yes 25mg Take 25 mg Univers (APRESOLINE 9-27 by mouth ity of ) 25 mg 19:28: daily. [place] tablet 04 Medical Branch lisinopril 2021-0 Yes 40mg Take 40 mg U nivers (PRINIVIL,Z 9- by mouth 2 it y of ESTRIL) 40 19:28: (two) [place] mg tablet 04 times Medical daily. Branch metoprolol 2021-0 Yes 100mg Take 100 Un matt tartrate 9-27 mg by ity of (LOPRESSOR) 19:28: mouth 2 [place] 100 mg 04 (two) Medical tablet times [place] daily. amLODIPine 2021-0 Yes 10mg Take 10 mg U nivers (NORVASC) 9-27 by mouth ity of 10 mg 19:28: daily. [place] tablet 04 Medical Branch clonazePAM 2021-0 Yes 1mg Take 1 mg Un matt (KLONOPIN) 9-27 by mouth ity o f 1 mg tablet 19:28: at [place] [address] bedtime. Medical Branch traZODone 2021-0 Yes 50mg Take 50 mg Un matt 100 mg 9-27 by mouth ity of tablet 19:28: at [place] [address] bedtime. Medical Branch hydralAZINE 2021-0 Yes 25mg Take 25 mg Univers (APRESOLINE 9-27 by mouth ity of ) 25 mg 19:28: daily. [place] tablet 04 Medical Branch lisinopril 2022-0 Yes 40mg Take 40 mg [...] o f 1 mg tablet 19:28: at [place] [address] bedtime. Medical Branch traZODone 2-0 Yes 50mg Take 50 mg Un matt 100 mg 9-27 by mouth ity of tablet 19:28: at [place] [address] bedtime. Medical Branch hydralAZINE 2021-0 Yes 25mg [...] o f 1 mg tablet 19:28: at [place] [address] bedtime. Medical Branch traZODone 2-0 Yes 50mg Take 50 mg Un matt 100 mg 9-27 by mouth ity of tablet 19:28: at [place] [address] bedtime. Medical Branch hydralAZINE 2-0 Yes 25mg [...] o f 1 mg tablet 19:28: at [place] [address] bedtime. Medical Branch traZODone 2021-0 Yes 50mg Take 50 mg Un matt 100 mg 9-27 by mouth ity of tablet 19:28: at [place] [address] bedtime. Medical Branch hydralAZINE 2021-0 Yes 25mg [...] o f 1 mg tablet 19:28: at [place] [address] bedtime. Medical Branch traZODone 2021-0 Yes 50mg Take 50 mg Un matt 100 mg 9-27 by mouth ity of tablet 19:28: at [place] 04 bedtime. Medical [place] cefpodoxime 2021-0 2021- Yes [id number] 200mg Take 1 Univers 200 mg 02-16 tablet by ity of tablet 00:00: 04:59 mouth in [place] 00 :00 the Medical morning Branch and 1 tablet in the evening. Do all this for 3 days. cefpodoxime 0 2021- Yes [id number] 200mg Take 1 Univers 200 mg 02-16 tablet by ity of tablet 00:00: 04:59 mouth in [place] 00 :00 the [facility] morning Branch and 1 tablet in the evening. Do all this for 3 days. haloperidol 2021- No 2mg 2 mg, Slow Univers lactate 02-15 IV Push, ity of (HALDOL) 09:00: 09:12 ONCE, 1 [place] injection 2 00 :00 dose, On Medi porfirio mg [facility] 02/15/22 at 0400, Routine hydroCHLORO 0 Yes 25mg 25 mg, [facility] ers thiazide 9-25 Oral, ity of (ESIDRIX) 14:00: DAILY, [place] capsule 25 00 First dose Med ical mg on [place] Branch 02/14/22 at 0900, Until Discontinu ed, Routine butalbital- 0 Yes 1{tbl} 1 tablet, [facility] acetaminoph -24 Oral, ity of en-caff 18:46: Q6HPRN, [place] (ESGIC) 06 Starting Medical 50-325-40 on [facility] Branch mg tablet 1 02/13/22 at tablet 1346, Until Discontinu ed, Routine, headaches dicyclomine 0 Yes 10mg 10 mg, Univ ers (BENTYL) 9-24 Oral, QID, ity o f capsule 10 17:00: First dose [place] mg 00 on [facility] Medical 02/13/22 at Branch 1200, Until Discontinu ed, Routine tiZANidine 0 Yes 4mg 4 mg, Univer s (ZANAFLEX) 9-23 Oral, Q8H, ity of tablet 4 mg 19:00: First dose [place] 00 on Fri Medical 02/12/22 at Branch 1400, Until Discontinu ed, Routine HYDROmorpho 0 Yes 4mg 4 mg, Unive rs ne [...] of 2,000 mg in 17:00: 18:24 Piggyback, [place] NaCl 0.9% 00 :00 Q24H ABX, Medic [...] AT 1700, Medical First dose Branch on [place] 02/11/22 at 1700, Until Discontinu ed, Routine aspirin 0 No 325mg 325 mg, Unive rs E.C. 02-11 Oral, ity of (ECOTRIN) 21:33: 21:44 ONCE, 1 [place] tablet 325 00 :00 dose, On Medic al mg [facility] Branch 02/11/22 at 1645, Routine nitroglycer Yes .4mg 0.4 mg, Uni vers in 02-11 Sublingual ity of (NITROSTAT) 21:31: , Q5MIN [place] sublingual 20 PRN, Medical tablet 0.4 Starting Branc h mg on [facility] 02/11/22 at 1631, Until Discontinu ed, Routine, Chest pain cloNIDine Yes .1mg 0.1 mg, Unive rs (CATAPRES) 02-11 Oral, ity of tablet 0.1 21:18: TIDPRN, [place] mg 37 Starting Medical on [place] 02/11/22 at 1618, Until Discontinu ed, Routine, SBP > 170 nystatin-tr 0 Yes Topical, Un matt iamcinolone 02-11 TID, First it y of (MYCOLOG) 19:00: dose on [place] cream 00 [facility] Medical 02/11/22 at Branch 1400, Until Discontinu ed, Routine busPIRone Yes 30mg 30 mg, Univer s (BUSPAR) 02-11 Oral, BID, ity o f tablet 30 18:00: First dose [place] mg 00 on [facility] Medical 02/11/22 at Branch 1300, Until Discontinu ed, Routine raltegravir Yes 400mg 400 mg, Un matt (ISENTRESS) 02-11 Oral, BID, it y of tablet 400 18:00: First dose [place] mg 00 on [facility] Medical 02/11/22 at Branch 1300, Until Discontinu ed, JOE metoprolol 2021-0 Yes 100mg 100 mg, Uni vers tartrate 02-11 Oral, BID, ity o f (LOPRESSOR) 18:00: First dose [place] tablet 100 00 on [facility] Medical mg 02/11/22 at Branch 1300, Until Discontinu ed, Routine lisinopriL 0 Yes 40mg 40 mg, Unive rs (PRINIVIL,Z 02-11 Oral, BID, it y of ESTRIL) 18:00: First dose [place] tablet 40 00 on [facility] Medical mg 02/11/22 at Branch 1300, Until Discontinu ed, Routine emtricitabi 0 Yes 1{tbl} 1 tablet, Univers ne-tenofovi 02-11 Oral, ity of r alafen 18:00: DAILY, [place] (DESCOVY) 00 First dose Medi porfirio tablet 1 on [facility] tablet 02/11/22 at 1300, Until Discontinu ed, Routine ipratropium 0 Yes .5mg 0.5 mg, Uni vers (ATROVENT) 02-11 Inhalation ity of 0.02 % 17:57: , QIDPRN, [place] nebulizer 10 Starting Medica l solution on [facility] Branch 0.5 mg 02/11/22 at 1257, Until Discontinu ed, Routine, Wheezing, Shortness of Breath amLODIPine 0 Yes 10mg 10 mg, Unive rs (NORVASC) 02-11 Oral, ity of tablet 10 17:30: DAILY, [place] mg 00 First dose Medical (after Branch last modificati on) on [facility] 02/11/22 at 1230, Until Discontinu ed, Routine hydrALAZINE 0 2021- No 25mg 25 mg, Uni vers (APRESOLINE 02-11 Oral, ity of ) tablet 25 17:30: 12:54 DAILY, [place] mg 00 :55 First dose Medical (after Branch last modificati on) on [facility] 02/11/22 at 1230, Until Discontinu ed, Routine HYDROcodone 2021-0 2021- No 1{tbl} 1 tablet, Univers -acetaminop [...] 0908, Until Discontinu ed, Routine, Insomnia acetaminoph 2021-0 2021- No 1{tbl} 1 tablet, Univers en-codeine 02-11 Oral, ity of (TYLENOL 14:06: 17:37 Q6HPN, [place] #3) 300-30 19 :24 Starting Medic al mg tablet 1 on [place] Branch tablet 02/11/22 at 0906, Until Tue02/12/22 at 1237, Routine, Pain (scale 4-6) sennosides- 0 Yes 1{tbl} 1 tablet, Univers docusate 02-11 Oral, ity of sodium 14:06: QDAILYPRN, [place] (SENOKOT-S) 09 Starting Medi porfirio 8.6-50 mg on [facility] Branch per tablet 02/11/22 at 1 tablet 0906, Until Discontinu ed, Routine, Constipati on ondansetron 0 Yes 4mg 4 mg, Slow Univers (ZOFRAN 02-11 IV Push, ity of (PF)) 14:05: [place], [place] injection 4 59 Starting Medi porfirio mg on [place] [facility] 02/11/22 at 0905, Until Discontinu ed, Routine, Nausea and Vomiting (N/V) acetaminoph 2021-0 Yes 650mg 650 mg, Un matt en 02-11 Oral, ity of (TYLENOL) 14:04: Q6HPNMay[place], [place] tablet 650 37 Starting Medic al [...] (two) Medical tablet times Branch daily. hydralAZINE Yes 25mg Take 25 mg Univers (APRESOLINE 02-11 by mouth ity of ) 25 mg 09:10: daily. [facility] 54 [facility] Branch amLODIPine Yes 10mg Take 10 mg U nivers (NORVASC) 02-11 by mouth ity of 10 mg 09:10: daily. [facility] 54 [facility] Branch piperacilli 2021- No 3.375g [...] of therapy: 72 hours iopamidol 2021- No [id number] 60mL 60 mL, Univers (ISOVUE 02-11 Intravenou [...] ity of (TYLENOL) 05:15: 04:19 ONCE, 1 [place] tablet 975 00 :00 dose, On Medic al mg [place] [facility] 02/11/22 at 0015, JOE emtricitabi Yes [id number] Take one Univers ne-tenofovi 9-12 po daily ity of r alafen 00:00: [place] (DESCOVY) 00 Medical tablet Branch emtricitabi Yes [id number] Take one Univers ne-tenofovi 9-12 po daily ity of r alafen 00:00: [place] (DESCOVY) 00 Medical tablet Branch emtricitabi Yes [id number] Take one Univers ne-tenofovi 9-12 po daily ity of r alafen 00:00: [place] (DESCOVY) 00 Medical tablet Branch emtricitabi Yes [id number] Take one Univers ne-tenofovi 9-12 po daily ity of r alafen 00:00: [place] (DESCOVY) 00 Medical tablet Branch emtricitabi Yes [id number] Take one Univers ne-tenofovi 9-12 po daily ity of r alafen 00:00: [place] (DESCOVY) 00 Medical tablet Branch emtricitabi Yes [id number] Take one Univers ne-tenofovi 9-12 po daily ity of r alafen 00:00: [place] (DESCOVY) 00 Medical tablet Branch emtricitabi Yes [id number] Take one Univers ne-tenofovi 9-12 po daily ity of r alafen 00:00: [place] (DESCOVY) 00 Medical tablet Branch emtricitabi 2021-0 Yes [id number] Take one Univers ne-tenofovi 9-12 po daily ity of r alafen 00:00: [place] (DESCOVY) 00 Medical tablet Branch naproxen 2021-0 Yes [id number] 500mg Take 1 U nivers (NAPROSYN) 7-24 tablet by ity of 500 mg 00:00: mouth in [place] tablet 00 the Medical morning Branch and 1 tablet in the evening. Take with meals. methocarbam 2021-0 Yes [id number] 500mg Take 1 Univers oL 500 mg 7-24 tablet by ity o f tablet 00:00: mouth 4 () Medical times Branch daily. naproxen 2021-0 Yes [id number] 500mg Take 1 U nivers (NAPROSYN) 7-24 tablet by ity of 500 mg 00:00: mouth in [place] tablet 00 the Medical morning Branch and 1 tablet in the evening. Take with meals. methocarbam 2021-0 Yes [id number] 500mg Take 1 Univers oL 500 mg 7-24 tablet by ity o f tablet 00:00: mouth 4 (four) Medical times Branch daily. naproxen 2021-0 Yes [id number] 500mg Take 1 U nivers (NAPROSYN) 7-24 tablet by ity of 500 mg 00:00: mouth in [place] tablet 00 the Medical morning Branch and 1 tablet in the evening. Take with meals. methocarbam 2021-0 Yes [id number] 500mg Take 1 Univers oL 500 mg 7-24 tablet by ity o f tablet 00:00: mouth 4 [place] (four) Medical times Branch daily. esomeprazol 2021- [...] ty of mg tablet 09:11: 00:00 (two) [place] 35 :00 times Medical daily. Branch traZODONE 2021- No Take by [facility] ers (DESYREL) 11-20 mouth at ity o f 10 mg/mL 09:10: 00:00 bedtime. [place] oral 28 :00 Medical suspension Branch hydralAZINE Yes 25mg Take 25 mg Univers (APRESOLINE 11-20 by mouth ity of ) 25 mg 08:47: daily. [place] tablet 47 Medical Branch cephALEXin 2021- No [id number] 500mg Take 1 Univers (KEFLEX) 10-24 capsule [...] 7-10). Indication s: acute pain buPROPion Yes [id number] 150mg Take 1 U nivers XL 4-12 tablet by ity of (WELLBUTRIN 00:00: mouth [place] XL) 150 mg 00 daily. Medical 24 hr Branch tablet busPIRone Yes [id number] 30mg Take 1 Un matt 30 mg 4-12 tablet by ity of tablet 00:00: mouth 2 [place] 00 (two) Medical times Branch daily. SERTraline Yes [id number] 200mg Take 2 Univers 100 mg 4-12 tablets by ity of tablet 00:00: mouth [place] 00 daily. Medical Branch buPROPion Yes [id number] 150mg Take 1 U nivers XL 4-12 tablet by ity of (WELLBUTRIN 00:00: mouth [place] XL) 150 mg 00 daily. Medical 24 hr Branch tablet busPIRone Yes [id number] 30mg Take 1 Un matt 30 mg 4-12 tablet by ity of tablet 00:00: mouth 2 [place] 00 (two) Medical times Branch daily. SERTraline 2021-0 Yes [id number] 200mg Take 2 Univers 100 mg 4-12 tablets by ity of tablet 00:00: mouth [place] 00 daily. Medical Branch buPROPion 2021-0 Yes [id number] 150mg Take 1 U nivers XL 4-12 tablet by ity of (WELLBUTRIN 00:00: mouth [place] XL) 150 mg 00 daily. Medical 24 hr Branch tablet busPIRone 2021-0 Yes [id number] 30mg Take 1 Un matt 30 mg 4-12 tablet by ity of tablet 00:00: mouth 2 [place] 00 (two) Medical times Branch daily. SERTraline 2021-0 Yes [id number] 200mg Take 2 Univers 100 mg 4-12 tablets by ity of tablet 00:00: mouth [place] 00 daily. Medical Branch buPROPion 2021-0 Yes [id number] 150mg Take 1 U nivers XL 4-12 tablet by ity of (WELLBUTRIN 00:00: mouth [place] XL) 150 mg 00 daily. Medical 24 hr Branch tablet busPIRone 2021-0 Yes [id number] 30mg Take 1 Un matt 30 mg 4-12 tablet by ity of tablet 00:00: mouth 2 00 (two) Medical times Branch daily. SERTraline 2021-0 Yes [id number] 200mg Take 2 Univers 100 mg 4-12 tablets by ity of tablet 00:00: mouth [place] 00 daily. Medical Branch buPROPion 2021-0 Yes [id number] 150mg Take 1 U nivers XL 4-12 tablet by ity of (WELLBUTRIN 00:00: mouth [place] XL) 150 mg 00 daily. Medical 24 hr Branch tablet busPIRone 2021-0 Yes [id number] 30mg Take 1 Un matt 30 mg 4-12 tablet by ity of tablet 00:00: mouth 2 [place] 00 (two) Medical times Branch daily. SERTraline 2021-0 Yes [id number] 200mg Take 2 Univers 100 mg 4-12 tablets by ity of tablet 00:00: mouth [place] 00 daily. Medical Branch buPROPion 2021-0 Yes [id number] 150mg Take 1 U nivers XL 4-12 tablet by ity of (WELLBUTRIN 00:00: mouth [place] XL) 150 mg 00 daily. Medical 24 hr Branch tablet busPIRone 2021-0 Yes [id number] 30mg Take 1 Un matt 30 mg 4-12 tablet by ity of tablet 00:00: mouth 2 [place] 00 (two) Medical times Branch daily. SERTraline 2021-0 Yes [id number] 200mg Take 2 Univers 100 mg 4-12 tablets by ity of tablet 00:00: mouth [place] 00 daily. Medical Branch buPROPion 2021-0 Yes [id number] 150mg Take 1 U nivers XL 4-12 tablet by ity of (WELLBUTRIN 00:00: mouth [place] XL) 150 mg 00 daily. Medical 24 hr Branch tablet busPIRone 2021-0 Yes [id number] 30mg Take 1 Un matt 30 mg 4-12 tablet by ity of tablet 00:00: mouth 2 [place] 00 (two) Medical times Branch daily. SERTraline 0 Yes [id number] 200mg Take 2 Univers 100 mg 4-12 tablets by ity of tablet 00:00: mouth [place] 00 daily. Medical Branch buPROPion 2021-0 Yes [id number] 150mg Take 1 U nivers XL 4-12 tablet by ity of (WELLBUTRIN 00:00: mouth [place] XL) 150 mg 00 daily. Medical 24 hr Branch tablet busPIRone 2021-0 Yes [id number] 30mg Take 1 Un matt 30 mg 4-12 tablet by ity of tablet 00:00: mouth 2 [place] 00 (two) Medical times Branch daily. SERTraline 2021-0 Yes [id number] 200mg Take 2 Univers 100 mg 4-12 tablets by ity of tablet 00:00: mouth [place] 00 daily. Medical Branch buPROPion 2021-0 Yes [id number] 150mg Take 1 U nivers XL 4-12 tablet by ity of (WELLBUTRIN 00:00: mouth [place] XL) 150 mg 00 daily. Medical 24 hr Branch tablet busPIRone 2021-0 Yes [id number] 30mg Take 1 Un matt 30 mg 4-12 tablet by ity of tablet 00:00: mouth 2 [place] 00 (two) Medical times Branch daily. SERTraline 2021-0 Yes [id number] 200mg Take 2 Univers 100 mg 4-12 tablets by ity of tablet 00:00: mouth [place] 00 daily. Medical Branch raltegravir 2021-0 Yes [id number] 400mg Take 1 Univers (ISENTRESS) 3-28 tablet by ity of 400 mg 00:00: mouth 2 [place] tablet 00 (two) Medical times Branch daily. raltegravir 2021-0 Yes [id number] 400mg Take 1 Univers (ISENTRESS) 3-28 tablet by ity of 400 mg 00:00: mouth 2 [place] tablet 00 (two) Medical times Branch daily. raltegravir 2021-0 Yes [id number] 400mg Take 1 Univers (ISENTRESS) 3-28 tablet by ity of 400 mg 00:00: mouth 2 [place] tablet 00 (two) Medical times Branch daily. raltegravir 2021-0 Yes [id number] 400mg Take 1 Univers (ISENTRESS) 3-28 tablet by ity of 400 mg 00:00: mouth 2 [place] tablet 00 (two) Medical times Branch daily. raltegravir 2021-0 Yes [id number] 400mg Take 1 Univers (ISENTRESS) 3-28 tablet by ity of 400 mg 00:00: mouth 2 [place] tablet 00 (two) Medical times Branch daily. raltegravir 0 Yes [id number] 400mg Take 1 Univers (ISENTRESS) 3-28 tablet by ity of 400 mg 00:00: mouth 2 [place] tablet 00 (two) Medical times Branch daily. raltegravir 0 Yes [id number] 400mg Take 1 [facility] (ISENTRESS) 3-28 tablet by ity of 400 mg 00:00: mouth 2 [place] tablet 00 (two) Medical times Branch daily. raltegravir 2021-0 Yes [id number] 400mg Take 1 [facility] (ISENTRESS) 3-28 tablet by ity of 400 mg 00:00: mouth 2 [place] tablet 00 (two) Medical times Branch daily. raltegravir 2021-0 Yes [id number] 400mg Take 1 [facility] (ISENTRESS) 3-28 tablet by ity of 400 mg 00:00: mouth 2 [place] tablet 00 (two) Medical times Branch daily. LORazepam 1 0 2021- No [id number] 1mg Take 1 [facility] mg tablet 3-10 [...] times a tablet day. emtricitabi 2021- No [id number] Take one [facility] ne-tenofovi -20 09-12 po daily ity of r alafen 00:00: 00:00 [place] (DESCOVY) 00 :00 Medical tablet Branch metoprolol Yes [id number] Take 1 [facility] tartrate 7-26 tablet [facility] (Lopressor) 00:00: (100 mg 100 MG 00 total) by tablet mouth 2 (two) times a day AND 0.5 tablets (50 mg total) every night. metoprolol Yes [id number] Take 1 [facility] tartrate 7-26 [facility] (Lopressor) 00:00: (100 mg 100 MG 00 total) by tablet mouth 2 (two) times a day AND 0.5 tablets (50 mg total) every night. raltegravir Yes 400mg Q.5D Take 400 [facility] (Isentress) 7-23 mg by Health 400 MG 08:03: mouth 2 tablet 05 (two) times a day. acetaminoph Yes 1000mg Q.5D Take 1,000 [facility] [...] area in groin) hydrALAZINE 0 Yes 50mg Q.[id number] Take 50 mg [facility] (APRESOLINE 7-19 [id number] [address] mouth 3 [facility] ) 50 MG [...] (affected area in groin) hydrALAZINE Yes 50mg Q.[id number] Take 50 mg [facility] (APRESOLINE 7-19 [id number] [address] mouth 3 st ) 50 MG [...] (affected area in groin) hydrALAZINE Yes 50mg Q.[id number] Take 50 mg [facility] (APRESOLINE 7-19 [id number] [address] mouth 3 st ) 50 MG [...] (affected area in groin) hydrALAZINE Yes 50mg Q.[id number] Take 50 mg [facility] (APRESOLINE 7-19 [id number] mouth 3 st ) 50 MG [...] area in groin) hydrALAZINE 0 Yes 50mg Q.[id number] Take 50 mg [facility] (APRESOLINE 7-19 [id number] [address] mouth 3 st ) 50 MG [...] (affected area in groin) hydrALAZINE Yes 50mg Q.[id number] Take 50 mg [facility] (APRESOLINE 7-19 [id number] [address] mouth 3 st ) 50 MG [...] area in groin) hydrALAZINE 0 Yes 50mg Q.[id number] Take 50 mg [facility] (APRESOLINE 7-19 [id number] mouth 3 st ) 50 MG [...] area in groin) hydrALAZINE 0 Yes 50mg Q.[id number] Take 50 mg [facility] (APRESOLINE 7-19 [id number] mouth 3 [address] ) 50 MG [...] (affected area in groin) hydrALAZINE Yes 50mg Q.[id number] Take 50 mg [facility] (APRESOLINE 7-19 [id number] [address] mouth 3 st ) 50 MG [...] (affected area in groin) hydrALAZINE Yes 50mg Q.[id number] Take 50 mg [facility] (APRESOLINE 7-19 [id number] mouth 3 [facility] ) 50 MG [...] area in groin) hydrALAZINE 0 Yes 50mg Q.[id number] Take 50 mg [facility] (APRESOLINE 7-19 [id number] [address] mouth 3 [facility] ) 50 MG [...] (affected area in groin) hydrALAZINE Yes 50mg Q.[id number] Take 50 mg [facility] (APRESOLINE 7-[id number] mouth 3 [facility] ) 50 MG [...] (affected area in groin) hydrALAZINE Yes 50mg Q.[id number] Take 50 mg [facility] (APRESOLINE 7-19 [id number] [address] mouth 3 [facility] ) 50 MG [...] area in groin) hydrALAZINE 2020-0 Yes 50mg Q.[id number] Take 50 mg [facility] (APRESOLINE 7-19 [id number] mouth 3 [facility] ) 50 MG [...] area in groin) hydrALAZINE 2020-0 Yes 50mg Q.[id number] Take 50 mg [facility] (APRESOLINE 7-[id number] mouth [address] ) 50 MG [...] (affected area in groin) hydrALAZINE Yes 50mg Q.[id number] Take 50 mg [facility] (APRESOLINE 7-[id number] mouth 3 [address] ) 50 MG [...] area in groin) hydrALAZINE 0 Yes 50mg Q.[id number] Take 50 mg [facility] (APRESOLINE 7-[id number] mouth 3 [address] ) 50 MG [...] area in groin) hydrALAZINE 2020-0 Yes 50mg Q.[id number] Take 50 mg [facility] (APRESOLINE 7-[id number] mouth 3 [address] ) 50 MG [...] (affected area in groin) hydrALAZINE Yes 50mg Q.[id number] Take 50 mg [facility] (APRESOLINE 7-[id number] mouth [address] ) 50 MG [...] (affected area in groin) hydrALAZINE Yes 50mg Q.[id number] Take 50 mg [facility] (APRESOLINE 7-[id number] mouth 3 [facility] ) 50 MG [...] area in groin) hydrALAZINE 0 Yes 50mg Q.[id number] Take 50 mg [facility] (APRESOLINE 7-[address] [id number] mouth [facility] ) 50 MG 10:51: 3D (three) [facility] tablet 25 times a l day. busPIRone 0 Yes 20mg QD Take 20 mg [facility] (BUSPAR) 10 7-[address] MG tablet 10:51: nightly. [facility]osp soren 25 l nystatin-tr 2020-0 Yes [id number] Apply to [facility] iamcinolone 7-06 area(s) 3 ity of cream 00:00: (three) [place] 00 times Medical daily. Branch nystatin-tr 2020-0 Yes [id number] Apply to [facility] iamcinolone 7-06 area(s) 3 ity of cream 00:00: (three) [place] 00 times Medical daily. Branch nystatin-tr 2020-0 Yes [id number] Apply to [facility] iamcinolone 7-06 area(s) 3 ity of cream 00:00: (three) [place] 00 times Medical daily. Branch nystatin-tr 2020-0 Yes [id number] Apply to [facility] iamcinolone 7-06 area(s) 3 ity of cream 00:00: (three) [place] 00 times Medical daily. Branch nystatin-tr 2020-0 Yes [id number] Apply to [facility] iamcinolone 7-06 area(s) 3 ity of cream 00:00: (three) [place] 00 times Medical daily. Branch nystatin-tr 2020-0 Yes [id number] Apply to [facility] iamcinolone 7-06 area(s) 3 ity of cream 00:00: (three) [place] 00 times Medical daily. Branch nystatin-tr 2020-0 Yes [id number] Apply to [facility] iamcinolone 7-06 area(s) 3 ity of cream 00:00: (three) [place] 00 times Medical daily. Branch nystatin-tr 2020-0 Yes [id number] Apply to [facility] iamcinolone 7-06 area(s) 3 ity of cream 00:00: (three) [place] 00 times Medical daily. Branch nystatin-tr 2020-0 Yes [id number] Apply to [facility] iamcinolone 7-06 area(s) 3 ity of cream 00:00: (three) [place] 00 times Medical daily. Branch budesonide- 2020-0 202- No 1{puff} QD Inhale 1 [facility] formoteroL 6-25 06-[address] (SYMBICORT) 14:37: 00:00 morning. H ospita 160-4.5 02 :00 l mcg/actuati on inhaler hydrALAZINE 2020-0 Yes [id number] 50mg Q.[id number] Take 1 [facility] (Apresoline 6-11 [id number] tablet (50 Health ) 50 MG 00:00: 3D mg total) tablet 00 by mouth 3 (three) times a day. hydrALAZINE 2020-0 Yes [id number] 50mg Q.[id number] Take 1 [facility] (Apresoline 6-11 [id number] tablet (50 Health ) 50 MG 00:00: [...] 00:00: ointment 00 nystatin 2020-0 2021- No [id number] Q.25D Take 5 mL [facility] (MYCOSTATIN 5-17 [...] e 4-10 Tablet l 14:00: should not Gray 00 be chewed or crushed. (Same as: [...] ia 4-10 (Same as: l 14:00: Zoloft) Gray 00 pantoprazol No Notes: Caesar lisa e 4-10 Tablet l 14:00: should not Marty 00 be chewed or crushed. (Same as: Protonix) Amiodarone No Notes: Memor ia 4-10 (Same as: l 14:00: Cordarone) Marty Amlodipine No Notes: Memor ia 4-10 (Same as: l 14:00: Norvasc) Gray emtricitabi No Notes: Caesar lisa ne 200 MG / 4-10 (Same as: l tenofovir 14:00: Descovy) Herm ariel alafenamide 00 Non-formul 25 MG Oral nancy Tablet [Descovy] Sertraline No Notes: Memor ia 4-10 (Same as: l 14:00: Zoloft) Gray 00 pantoprazol No Notes: Caesar lisa e 4-10 Tablet l 14:00: should not Gray 00 be chewed or crushed. (Same as: Protonix) Amiodarone No Notes: Memor ia 4-10 (Same as: l 14:00: Cordarone) Gray 00 Amlodipine No Notes: Memor ia 4-10 (Same as: l 14:00: Norvasc) Gray 00 emtricitabi No Notes: Caesar lisa ne 200 MG / 4-10 (Same as: l tenofovir 14:00: Descovy) Herm ariel alafenamide 00 Non-formul 25 MG Oral nancy Tablet [Descovy] Sertraline No Notes: Memor ia 4-10 (Same as: l 14:00: Zoloft) Marty 00 pantoprazol No Notes: Caesar lisa e 4-10 Tablet l 14:00: should not Gray 00 be chewed or crushed. (Same as: Protonix) Amiodarone No Notes: Memor ia 4-10 (Same as: l 14:00: Cordarone) Marty Amlodipine No Notes: Memor ia 4-10 (Same as: l 14:00: Norvasc) Gray emtricitabi No Notes: Caesar lisa ne 200 MG / 4-10 (Same as: l tenofovir 14:00: Descovy) Herm ariel alafenamide 00 Non-formul 25 MG Oral nancy Tablet [Descovy] Sertraline No Notes: Memor ia 4-10 (Same as: l 14:00: Zoloft) Gray pantoprazol No Notes: Caesar lisa e 4-10 [...] ia 4-10 (Same as: l 14:00: Cordarone) Gray 00 Sucralfate No Notes: Susan Corbin emoria 4-10 interfere l 02:00: w/enteral Gray 00 feeds - Take 1 hr before [...] Memoria 4-10 Same as: l 02:00: Eliquis Gray Hydralazine No Notes: Caesar lisa Hydrochlori 4-10 [...] 0.9% 4-10 (Same as: l 02:00: BD Gray 00 Posiflush) Eliquis No Notes: Memoria 4-10 Same as: l 02:00: Eliquis Marty Hydralazine No Notes: Caesar lisa Hydrochlori 4-10 (Same as: l de 50 MG 02:00: Apresoline Her mitchell Oral Tablet 00 ) May interfere w/enteral feedings Take With Food Sucralfate No Notes: May M emoria 4-10 interfere l 02:00: w/enteral Gray 00 feeds - Take 1 hr before [...] Memoria 4-10 Same as: l 02:00: Eliquis Gray Hydralazine No Notes: Caesar lisa Hydrochlori 4-10 [...] Memoria 4-10 Same as: l 02:00: Eliquis Gray 00 Hydralazine No Notes: Caesar lisa Hydrochlori 4-10 (Same as: l de 50 MG 02:00: Apresoline Her mitchell Oral Tablet 00 ) May interfere w/enteral feedings Take With Food Sucralfate No Notes: May M emoria 4-10 interfere l 02:00: w/enteral Gray 00 feeds - Take 1 hr before [...] 0.9% 4-10 (Same as: l 02:00: BD Gray Posiflush) Eliquis No Notes: Memoria 4-10 Same as: l 02:00: Eliquis Hydralazine No Notes: Caesar lisa Hydrochlori 4-10 (Same as: l de 50 MG 02:00: Apresoline Her mitchell Oral Tablet 00 ) May interfere w/enteral feedings Take With Food acetaminoph No Notes: Do M emoria en-codeine 4-10 not exceed l #3 00:12: 4gm/day of Gray acetaminop hen. (Same as: Tylenol with Codeine # 3) acetaminoph No Notes: Do M emoria en-codeine 4-10 not exceed l #3 00:12: 4gm/day of Gray acetaminop hen. (Same as: Tylenol with Codeine # 3) acetaminoph No Notes: Do M emoria en-codeine 4-10 not exceed l #3 00:12: 4gm/day of Gray acetaminop hen. (Same as: Tylenol with Codeine # 3) acetaminoph No Notes: Do M emoria en-codeine 4-10 not exceed l #3 00:12: 4gm/day of Marty acetaminop hen. (Same as: Tylenol with Codeine # 3) acetaminoph No Notes: Do M emoria en-codeine 4-10 not exceed l #3 00:12: 4gm/day of Gray 00 acetaminop hen. (Same as: Tylenol with [...] oria 4- tab, l 22:00: Route: PO, Gray 00 Drug form: TAB, BID, Dosing Weight 97.273, kg, Start date: 08/29/20 17:00:00 CDT, Duration: 30 day, Stop date: 09/28/20 9:00:00 CDT metoprolol No 100 mg, 1 Me moria tartrate - tab, l 22:00: Route: PO, Gray 00 Drug form: TAB, BID, Dosing Weight 97.273, kg, Start date: 08/29/20 17:00:00 CDT, Duration: 30 day, Stop date: 09/28/20 9:00:00 CDT Raltegravir No 400 mg, 1 M emoria 400 MG Oral 4- tab, l Tablet 22:00: Route: PO, Syklar [ISENTRE] Drug form: TAB, BID, Dosing Weight 97.273, kg, Start date: 08/29/20 17:00:00 CDT, Duration: 30 day, Stop date: 09/28/20 9:00:00 CDT, 0 Buspirone 2020-0 No Notes: Memori a 08-29 (Same As: l 22:00: BuSpar) Lisinopril 2020-0 No 40 mg, 1 Mem oria 4-09 tab, l 22:00: Route: PO, Gray Drug form: TAB, BID, Dosing Weight 97.273, [...] l Tablet 22:00: Route: PO, Skylar [ISENTRESS] 00 Drug form: TAB, BID, Dosing [...] tartrate 4-09 tab, l 22:00: Route: PO, Gray 00 Drug form: TAB, BID, Dosing Weight [...] oria 4-09 tab, l 22:00: Route: PO, Gray 00 Drug form: TAB, BID, Dosing Weight [...] oria 4-09 tab, l 22:00: Route: PO, Gray Drug form: TAB, BID, Dosing Weight 97.273, kg, Start date: 08/29/20 17:00:00 CDT, Duration: 30 day, Stop date: 09/28/20 9:00:00 CDT metoprolol 1-0 No 100 mg, 1 Me moria tartrate 4-09 tab, l 22:00: Route: PO, Gray Drug form: TAB, BID, Dosing Weight 97.273, [...] a 4-09 (Same As: l 22:00: BuSpar) Gray 00 Lisinopril No 40 mg, 1 Mem oria 4-09 tab, l 22:00: Route: PO, Marty 00 Drug form: TAB, BID, Dosing Weight 97.273, kg, Start date: 08/29/20 17:00:00 CDT, Duration: 30 day, Stop date: 09/28/20 9:00:00 CDT metoprolol No 100 mg, 1 Me moria tartrate 4- tab, l 22:00: Route: PO, Gray 00 Drug form: TAB, BID, Dosing Weight [...] Notes: Memoria 4-09 (Same l 17:07: as:MORPhin Gray 00 e Sulfate) Morphine No Notes: Memoria 4-09 (Same l 17:07: as:MORPhin Marty 00 e Sulfate) Morphine No Notes: Memoria 4-09 (Same l 17:07: as:MORPhin Marty 00 e Sulfate) Morphine No Notes: Memoria 4-09 (Same l 17:07: as:MORPhin Marty 00 e Sulfate) Morphine No Notes: Memoria 4-09 (Same l 17:07: as:MORPhin Marty 00 e Sulfate) Morphine 2021-0 No Notes: [...] tab, PO, l oral 15:27: Daily, # Gray enteric 00 30 tab, 0 coated Refill(s), tablet Pharmacy: [facility], 162.56, cm, 08/29/20 5:30:00 CDT, Height, 97.273, kg, 08/29/20 5:30:00 CDT, Weight pantoprazol 2020-0 Yes 40 mg = 1 M emoria e 40 mg 4-09 tab, PO, l oral 15:27: Daily, # [place] enteric 00 30 tab, 0 coated Refill(s), tablet Pharmacy: [facility] 149, 162.56, cm, 08/29/20 5:30:00 CDT, Height, 97.273, kg, 08/29/20 5:30:00 CDT, Weight pantoprazol 2020-0 Yes 40 mg = 1 M emoria e 40 mg 4-09 tab, PO, l oral 15:27: Daily, # Marty enteric 00 30 tab, 0 coated Refill(s), tablet Pharmacy: [facility] 149, 162.56, cm, 08/29/20 5:30:00 CDT, Height, 97.273, kg, 08/29/20 5:30:00 CDT, Weight pantoprazol 2020-0 Yes 40 mg = 1 M emoria e 40 mg 4-09 tab, PO, l oral 15:27: Daily, # Marty enteric 00 30 tab, 0 coated Refill(s), tablet Pharmacy: [facility] 149, 162.56, cm, 08/29/20 5:30:00 CDT, Height, 97.273, kg, 08/29/20 5:30:00 CDT, Weight pantoprazol 2020-0 Yes 40 mg = 1 M emoria e 40 mg 4-09 tab, PO, l oral 15:27: Daily, # Gray enteric 00 30 tab, 0 coated Refill(s), tablet Pharmacy: [facility] 149, 162.56, cm, 08/29/20 5:30:00 CDT, Height, 97.273, kg, 08/29/20 5:30:00 CDT, Weight pantoprazol 2020-0 Yes 40 mg = 1 M emoria e 40 mg 4-09 tab, PO, l oral 15:27: Daily, # Gray enteric 00 30 tab, 0 coated Refill(s), tablet Pharmacy: [facility] 149, 162.56, cm, 08/29/20 5:30:00 CDT, Height, 97.273, kg, 08/29/20 5:30:00 CDT, Weight pantoprazol 2020-0 Yes 40 mg = 1 M emoria e 40 mg 4-09 tab, PO, l oral 15:27: Daily, # Marty enteric 00 30 tab, 0 coated Refill(s), tablet Pharmacy: [facility] 149, 162.56, cm, 08/29/20 5:30:00 [...] Skylar nn 00 tab, 0 Refill(s), Pharmacy: [facility] 149, 162.56, cm, 08/29/20 5:30:00 CDT, Height, 97.273, kg, 08/29/20 5:30:00 CDT, Weight pantoprazol 1-0 No 40 mg = 1 M emoria e 40 mg 4-09 tab, PO, l oral 15:26: Daily, # Gray enteric 00 30 tab, 0 coated Refill(s) tablet sucralfate 2020-0 Yes 1 gm = 1 Mem oria 1 g oral 4-09 tab, PO, l tablet 15:26: Q12H, # 28 Skylar nn 00 tab, 0 Refill(s), Pharmacy: [facility] 149, 162.56, cm, 08/29/20 5:30:00 [...] Skylar nn 00 tab, 0 Refill(s), Pharmacy: [facility] 149, 162.56, cm, 08/29/20 5:30:00 [...] Skylar nn 00 tab, 0 Refill(s), Pharmacy: [place] [id number], 162.56, cm, 08/29/20 5:30:00 CDT, Height, 97.273, [...] Skylar nn 00 tab, 0 Refill(s), Pharmacy: [facility] 149, 162.56, cm, 08/29/20 5:30:00 CDT, Height, 97.273, kg, 08/29/20 5:30:00 CDT, Weight pantoprazol No 40 mg = 1 M emoria e 40 mg 4-09 tab, PO, l oral 15:26: Daily, # Gray enteric 00 30 tab, 0 coated Refill(s) tablet sucralfate Yes 1 gm = 1 Mem oria 1 g oral 4-09 tab, PO, l tablet 15:26: Q12H, # 28 Skylar nn 00 tab, 0 Refill(s), Pharmacy: [facility] 149, 162.56, cm, 08/29/20 5:30:00 CDT, Height, 97.273, kg, 08/29/20 5:30:00 CDT, Weight pantoprazol No 40 mg = 1 M emoria e 40 mg 4-09 tab, PO, l oral 15:26: Daily, # Gray enteric 00 30 tab, 0 coated Refill(s) tablet sucralfate Yes 1 gm = 1 Mem oria 1 g oral 4-09 tab, PO, l tablet 15:26: Q12H, # 28 Skylar nn 00 tab, 0 Refill(s), Pharmacy: [facility] 149, 162.56, cm, 08/29/20 5:30:00 [...] 0.9% 4-09 (Same as: l 15:25: BD Gray 00 Posiflush) Saline No Notes: Memoria Flush 0.9% 4-09 (Same as: l 15:25: BD Gray 00 Posiflush) Lorazepam No Notes: Memori a 4-09 (Same as: l 15:25: Ativan) Marty 00 Lorazepam No Notes: Memori a 4-09 (Same as: l 15:25: Ativan) Gray Saline No Notes: Memoria Flush 0.9% 4-09 (Same as: l 15:25: BD Marty 00 Posiflush) Lorazepam No Notes: Memori a 4-09 (Same as: l 15:25: Ativan) Gray 00 Saline No Notes: Memoria Flush 0.9% 4-09 (Same as: l 15:25: BD Marty 00 Posiflush) Lorazepam No Notes: Memori a 4-09 (Same as: l 15:25: Ativan) Marty 00 Saline No Notes: Memoria Flush 0.9% 4-09 (Same as: l 15:25: BD Gray 00 Posiflush) Lorazepam No Notes: Memori a 4-09 (Same as: l 15:25: Ativan) Isuprel HCl No Route: IV, Memoria (ANES) 0.2 08-29 Drug form: l mg + 15:00: INJ, Gray Dosing Weight 97.3, kg, Start date: 08/29/20 10:00:00 CDT, Stop date: 08/29/20 11:00:00 CDT Isuprel HCl No Route: IV, Memoria (ANES) 0.2 08-29 Drug form: l mg + 15:00: INJ, Marty Dosing Weight 97.3, kg, Start date: 08/29/20 10:00:00 CDT, Stop date: 08/29/20 11:00:00 CDT Isuprel HCl No Route: IV, Memoria (ANES) 0.2 08-29 Drug form: l mg + 15:00: INJ, Gray 00 Dosing Weight 97.3, kg, Start date: 08/29/20 10:00:00 CDT, Stop date: 08/29/20 11:00:00 CDT Isuprel HCl 2020-0 No Route: IV, Memoria (ANES) 0.2 08-29 Drug form: l mg + 15:00: INJ, Gray 00 Dosing Weight 97.3, kg, Start date: [...] Drug form: l mg + 15:00: INJ, Gray 00 Dosing Weight 97.3, kg, Start date: [...] 08-29 Drug form: l 14:49: INJ, ONCE, Gray 00 Stop date: 08/29/20 9:49:00 CDT heparin [...] 08-29 Drug form: l 14:29: INJ, ONCE, Gray 00 Stop date: 08/29/20 9:29:00 CDT propofol 2021-0 No Route: IV, Mem oria (ANES) 08-29 Drug form: l 14:29: INJ, ONCE, Stop date: 08/29/20 9:29:00 CDT propofol 2021-0 No Route: IV, Mem oria (ANES) 08-29 Drug form: l 14:29: INJ, ONCE, Gray 00 Stop date: 08/29/20 9:29:00 CDT propofol 0 No Route: IV, Mem oria (ANES) 08-29 Drug form: l 14:29: INJ, ONCE, Stop date: 08/29/20 9:29:00 CDT heparin 2020-0 No Route: IV, Caesar lisa (ANES) 08-29 Drug form: l 14:18: INJ, ONCE, Stop date: 08/29/20 9:18:00 CDT heparin 2020-0 No Route: IV, Caesar lisa (ANES) 08-29 Drug form: l 14:18: INJ, ONCE, Gray 00 Stop date: 08/29/20 9:18:00 CDT heparin [...] 08-29 Drug form: l 14:18: INJ, ONCE, Gray 00 Stop date: 08/29/20 9:18:00 CDT Labetalol 0 No 10 mg, Memori a 08-29 Route: l 14:01: IVP, Gray 00 Q5Min, Dosing Weight 97.273, kg, PRN Elevated BP, Start date: 08/29/20 9:01:00 CDT, Duration: 5 doses or times, Stop date: Limited # of times Acetaminoph No 1,000 mg, M emoria en 08-29 Route: PO, l 14:01: Drug form: Gray 00 TAB, ONCE, Dosing Weight 97.273, kg, [...] oria ne 08-29 Route: l 14:01: IVP, Gray 00 Q5Min, Dosing Weight 97.273, kg, PRN Pain Score 7-10, Start date: 08/29/20 9:01:00 CDT, Duration: 4 doses or times, Stop date: Limited # of times Flumazenil 2020-0 No 0.2 mg, Caesar lisa 08-29 Route: l 14:01: IVP, PRN, Gray 00 Dosing Weight 97.273, kg, PRN Benzodiaze pine Reversal, Initial dose, Start date: 08/29/20 9:01:00 CDT, Duration: 30 day, Stop date: 09/28/20 9:00:00 CDT Naloxone 1-0 No 0.4 mg, Memori a 08-29 Route: l 14:01: IVP, Gray 00 Q2MIN, Dosing Weight 97.273, kg, PRN Narcotic Reversal, Start date: 08/29/20 9:01:00 CDT, Duration: 8 doses or times, Stop date: Limited # of times Ondansetron 1-0 No 4 mg, Memor ia 08-29 Route: l 14:01: IVP, ONCE, Gray 00 Dosing Weight 97.273, kg, PRN Nausea & Vomiting, Start date: 08/29/20 9:01:00 CDT Labetalol 1-0 No 10 mg, Memori a 08-29 Route: l 14:01: IVP, Gray 00 Q5Min, Dosing Weight 97.273, kg, PRN [...] lisa 08-29 Route: l 14:01: IVP, PRN, Gray 00 Dosing Weight 97.273, kg, PRN Benzodiaze pine Reversal, Initial dose, Start date: 08/29/20 9:01:00 CDT, Duration: 30 day, Stop date: 09/28/20 9:00:00 CDT Naloxone 1-0 No 0.4 mg, Memori a 08-29 Route: l 14:01: IVP, Gray 00 Q2MIN, Dosing Weight 97.273, kg, PRN [...] 08-29 Route: PO, l 14:01: Drug form: Gray 00 TAB, ONCE, Dosing Weight 97.273, kg, [...] lisa 08-29 Route: l 14:01: IVP, PRN, Gray 00 Dosing Weight 97.273, kg, PRN Benzodiaze [...] 08-29 Route: PO, l 14:01: Drug form: Gray 00 TAB, ONCE, Dosing Weight 97.273, kg, [...] oria ne 08-29 Route: l 14:01: IVP, Gray 00 Q5Min, Dosing Weight 97.273, kg, PRN [...] 08-29 Route: PO, l 14:01: Drug form: Gray 00 TAB, ONCE, Dosing Weight 97.273, kg, [...] oria ne 08-29 Route: l 14:01: IVP, Gray 00 Q5Min, Dosing Weight 97.273, kg, PRN [...] Memori a 08-29 Route: l 14:01: IVP, Gray 00 Q2MIN, Dosing Weight 97.273, kg, PRN [...] ia 08-29 Route: l 14:01: IVP, ONCE, Gray 00 Dosing Weight 97.273, kg, PRN Nausea & Vomiting, Start date: 08/29/20 9:01:00 CDT Naloxone 2021-0 No 0.4 mg, Memori a 08-29 Route: l 14:01: IVP, Gray 00 Q2MIN, Dosing Weight 97.273, kg, PRN [...] Memori a 08-29 Route: l 14:01: IVP, Gray 00 Q5Min, Dosing Weight 97.273, kg, PRN Elevated BP, Start date: 08/29/20 9:01:00 CDT, Duration: 5 doses or times, Stop date: Limited # of times Acetaminoph 2021-0 No 1,000 mg, M emoria en 08-29 Route: PO, l 14:01: Drug form: Gray 00 TAB, ONCE, Dosing Weight 97.273, kg, [...] oria ne 08-29 Route: l 14:01: IVP, Gray 00 Q5Min, Dosing Weight 97.273, kg, PRN [...] Memori a 08-29 Route: l 14:01: IVP, Gray 00 Q5Min, Dosing Weight 97.273, kg, PRN Elevated BP, Start date: 08/29/20 9:01:00 CDT, Duration: 5 doses or times, Stop date: Limited # of times Acetaminoph 2020-0 No 1,000 mg, M emoria en 08-29 Route: PO, l 14:01: Drug form: Gray 00 TAB, ONCE, Dosing Weight 97.273, kg, [...] Memori a 08-29 Route: l 14:01: IVP, Gray 00 Q2MIN, Dosing Weight 97.273, kg, PRN [...] 08-29 Drug form: l 13:42: INJ, ONCE, Gray Stop date: 08/29/20 8:42:00 CDT fentaNYL 2020-0 No Route: IV, Mem oria (ANES) 08-29 Drug form: l 13:42: INJ, ONCE, Marty Stop date: 08/29/20 8:42:00 CDT norepinephr 2020-0 No Route: IV, Memoria ine (ANES) 08-29 Drug form: l 10 13:15: INJ, Start Gray microgram date: 08/29/20 8:15:00 CDT, Stop date: 08/29/20 9:15:00 CDT norepinephr 2020-0 No Route: IV, Memoria ine (ANES) 08-29 Drug form: l 10 13:15: INJ, Start Marty microgram date: 08/29/20 8:15:00 CDT, Stop date: 08/29/20 9:15:00 CDT norepinephr 2020-0 No Route: IV, Memoria ine (ANES) 08-29 Drug form: l 10 13:15: INJ, Start Gray microgram date: 08/29/20 8:15:00 CDT, Stop date: 08/29/20 9:15:00 CDT norepinephr 2020-0 No Route: IV, Memoria ine (ANES) 08-29 Drug form: l 10 13:15: INJ, Start Gray microgram date: 08/29/20 8:15:00 CDT, Stop date: 08/29/20 9:15:00 CDT norepinephr 2020-0 No Route: IV, Memoria ine (ANES) 08-29 Drug form: l 10 13:15: INJ, Start Gray microgram 00 date: 08/29/20 8:15:00 CDT, Stop [...] 4-09 Total l 0.9% IV 12:30: Volume: Gray (ANES) 1000 00 1,000, mL Start date: 08/29/20 7:30:00 CDT, Stop date: 08/29/20 8:30:00 CDT Sodium 2020-0 No Route: IV, Memor ia Chloride 4-09 Total l 0.9% IV 12:30: Volume: Gray (ANES) 1000 00 1,000, mL Start date: 08/29/20 7:30:00 CDT, Stop date: 08/29/20 8:30:00 CDT Sodium No Route: IV, Memor ia Chloride 4-09 Total l 0.9% IV 12:30: Volume: Gray (ANES) 1000 00 1,000, mL Start date: [...] PO, l Hydrochlori 11:42: Q24H, # 30 Gray de 150 MG 00 tab, 0 Extended Refill(s) Release Tablet 24 HR Yes 150 mg = 1 Memori a Bupropion 4-09 tab, PO, l Hydrochlori 11:42: Q24H, # 30 Gray de 150 MG 00 tab, 0 Extended Refill(s) Release Tablet 24 HR Yes 150 mg = 1 Memori a Bupropion 4-09 tab, PO, l Hydrochlori 11:42: Q24H, # 30 Gray de 150 MG 00 tab, 0 Extended Refill(s) Release Tablet 24 HR Yes 150 mg = 1 Memori a Bupropion 4-09 tab, PO, l Hydrochlori 11:42: Q24H, # 30 Marty de 150 MG 00 tab, 0 Extended Refill(s) Release Tablet 24 HR Yes 150 mg = 1 Memori a Bupropion 4-09 tab, PO, l Hydrochlori 11:42: Q24H, # 30 Gray de 150 MG 00 tab, 0 Extended Refill(s) Release Tablet 24 HR Yes 150 mg = 1 Memori a Bupropion 4-09 tab, PO, l Hydrochlori 11:42: Q24H, # 30 Gray de 150 MG 00 tab, 0 Extended Refill(s) Release Tablet 24 HR Yes 150 mg = 1 Memori a Bupropion 4-09 tab, PO, l Hydrochlori 11:42: Q24H, # 30 Gray de 150 MG 00 tab, 0 Extended Refill(s) Release Tablet apixaban 2020-0 Yes 5 mg, PO, Me moria MG Oral 4- Q12H, tab, l Tablet 11:41: 0 Gray [Eliquis] 00 Refill(s), For Atrial Fibrilatio n apixaban 2020-0 Yes 5 mg, PO, Me moria MG Oral 4-09 Q12H, tab, l Tablet 11:41: 0 Gray [Eliquis] 00 Refill(s), For Atrial Fibrilatio n [...] 09 Q12H, tab, l Tablet 11:41: 0 Gray [Eliquis] 00 Refill(s), For Atrial Fibrilatio n apixaban 5 2020-0 Yes 5 mg, PO, Me moria MG Oral 08-29 Q12H, tab, l Tablet 11:41: 0 Gray [Eliquis] 00 Refill(s), For Atrial Fibrilatio n [...] tab, PO, l tablet 11:38: Daily, # Gray 00 90 tab, 3 Refill(s) AMIODarone 2020-0 Yes 200 mg = 1 M emoria 200 mg oral -09 tab, PO, l tablet 11:38: Daily, # Marty 00 90 tab, 3 Refill(s) AMIODarone 2020-0 Yes 200 mg = 1 M emoria 200 mg oral 4-09 tab, PO, l tablet 11:38: Daily, # Gray 00 90 tab, 3 Refill(s) AMIODarone 2020-0 [...] tab, PO, l tablet 11:38: Daily, # Gray 00 90 tab, 3 Refill(s) normal No [...] 08-16 st 00:00: [facility] 00 l predniSONE 1-0 Yes [place] (Deltasone) 3-13 Health 20 MG [...] 00:00: [place] on inhaler [facility] albuterol 2020-0 Yes Univers 90 4-14 ity of mcg/actuati 00:00: [place] on inhaler 00 [facility] albuterol 2020-0 Yes Univers 90 4-14 ity of mcg/actuati 00:00: [place] on inhaler [facility] albuterol 2020-0 Yes Univers 90 [...] Hospita 00 (two) l [facility] a [facility]. [facility] Yes 400mg Q.5D Take 400 Met hodi 400 mg 3-[address] tablet 00:00: mouth 2 Hospita 00 (two) l times a day. [facility] [address] Yes 400mg Q.5D Take 400 Met hodi 400 mg 3-[address] tablet 00:00: mouth 2 [facility]osp[facility] 00 (two) l [facility] a day. [facility] [id number] Yes 400mg Q.5D Take 400 Met hodi 400 mg 3-[address] tablet 00:00: mouth 2 [facility]ospita 00 (two) l times a day. Immunizations Ordered Filled Immunization Date Status Comments [facility] e Immunization Name Name SARS-COV-2 COVID-19 [...] Free Branch 65+ PFIZER COVID-19 2020-07-23 Completed [facility] VACCINATION 00:00:00 [facility] PFIZER COVID-19 2020-07-23 Completed [facility] MRNA VACCINATION 00:00:00 [facility] PFIZER COVID-19 2020-07-23 Completed [facility] MRNA VACCINATION 00:00:00 [facility] PFIZER COVID-19 2020-07-23 Completed [facility] MRNA VACCINATION 00:00:00 [facility] PFIZER COVID-19 2020-07-23 Completed [facility] MRNA VACCINATION 00:00:00 [facility] PFIZER COVID-19 2020-07-23 Completed [facility] MRNA VACCINATION 00:00:00 [facility] PFIZER COVID-19 2020-07-23 Completed [facility] MRNA VACCINATION 00:00:00 [facility] PFIZER COVID-19 2020-07-23 Completed [facility] MRNA VACCINATION 00:00:00 [facility] PFIZER COVID-19 2020-07-23 Completed [facility] MRNA VACCINATION 00:00:00 [facility] PFIZER COVID-19 2020-07-23 Completed [facility] MRNA VACCINATION 00:00:00 [facility] PFIZER COVID-19 2020-07-23 Completed [facility] MRNA VACCINATION 00:00:00 [facility] PFIZER COVID-19 2020-07-23 Completed [facility] MRNA VACCINATION 00:00:00 [facility] PFIZER COVID-19 2020-07-23 Completed [facility] MRNA VACCINATION 00:00:00 [facility] PFIZER COVID-19 2020-07-23 Completed [facility] MRNA VACCINATION 00:00:00 [facility] PFIZER COVID-19 2020-07-23 Completed [facility] MRNA VACCINATION 00:00:00 [facility] PFIZER COVID-19 2020-07-23 Completed [facility] MRNA VACCINATION 00:00:00 [facility] PFIZER COVID-19 2020-07-23 Completed [facility] MRNA VACCINATION 00:00:00 [facility] PFIZER COVID-19 2020-07-23 Completed [facility] MRNA VACCINATION 00:00:00 [facility] PFIZER COVID-19 2020-07-23 Completed [facility] MRNA VACCINATION 00:00:00 [facility] PFIZER COVID-19 2020-07-23 Completed [facility] MRNA VACCINATION 00:00:00 [facility] SARS-COV-2 COVID-19 2020-07-23 Completed Unive rsity of PFIZER VACCINE 00:00:00 [facility] SARS-COV-2 COVID-19 2020-07-23 Completed Unive rsity of PFIZER VACCINE 00:00:00 [facility] SARS-COV-2 COVID-19 2020-07-23 Completed Unive rsity of PFIZER VACCINE 00:00:00 [facility] SARS-COV-2 COVID-19 2020-07-23 Completed Unive rsity of PFIZER VACCINE 00:00:00 [facility] SARS-COV-2 COVID-19 2020-07-23 Completed Unive rsity of PFIZER VACCINE 00:00:00 [facility] PFIZER COVID-19 2020-07-23 Completed [facility] VACCINATION 00:00:00 [facility] PFIZER COVID-19 2020-07-02 Completed [facility] MRNA VACCINATION 00:00:00 [facility] PFIZER COVID-19 2020-07-02 Completed [facility] MRNA VACCINATION 00:00:00 [facility] PFIZER COVID-19 2020-07-02 Completed [facility] MRNA VACCINATION 00:00:00 [facility] PFIZER COVID-19 2020-07-02 Completed [facility] MRNA VACCINATION 00:00:00 [facility] PFIZER COVID-19 2020-07-02 Completed [facility] MRNA VACCINATION 00:00:00 [facility] PFIZER COVID-19 2020-07-02 Completed [facility] MRNA VACCINATION 00:00:00 [facility] PFIZER COVID-19 2020-07-02 Completed [facility] MRNA VACCINATION 00:00:00 [facility] PFIZER COVID-19 2020-07-02 Completed [facility] MRNA VACCINATION 00:00:00 [facility] PFIZER COVID-19 2020-07-02 Completed [facility] MRNA VACCINATION 00:00:00 [facility] PFIZER COVID-19 2020-07-02 Completed [facility] MRNA VACCINATION 00:00:00 [facility] PFIZER COVID-19 2020-07-02 Completed [facility] MRNA VACCINATION 00:00:00 [facility] PFIZER COVID-19 2020-07-02 Completed [facility] M[facility] VACCINATION 00:00:00 [facility] PFIZER COVID-19 2020-07-02 Completed [facility]ACC[facility] 00:00:00 Hospital PFIZER COVID-19 2020-07-02 Completed [facility] VACCIN[facility] 00:00:00 Hospital PFIZER COVID-19 2020-07-02 Completed [facility] VACCINATION 00:00:00 Hospital PFIZER COVID-19 2020-07-02 Completed [facility] VACCINATION 00:00:00 Hospital PFIZER COVID-19 2020-07-02 Completed [facility] VACCINATION 00:00:00 Hospital PFIZER COVID-19 2020-07-02 Completed [facility] VACCINATION 00:00:00 Hospital PFIZER COVID-19 2020-07-02 Completed [facility] VACCINATION 00:00:00 Hospital PFIZER COVID-19 2020-07-02 Completed [facility] M[facility] VACCINATION 00:00:00 [facility] SARS-COV-2 COVID-19 2020-07-02 Completed Unive rsity of PFIZER VACCINE 00:00:00 [facility] SARS-COV-2 COVID-19 2020-07-02 Completed Unive rsity of PFIZER VACCINE 00:00:00 [facility] SARS-COV-2 COVID-19 2020-07-02 Completed Unive rsity of PFIZER VACCINE 00:00:00 [facility] SARS-COV-2 COVID-19 2020-07-02 Completed Unive rsity of PFIZER VACCINE 00:00:00 [facility] SARS-COV-2 COVID-19 2020-07-02 Completed Unive rsity of PFIZER VACCINE 00:00:00 [facility] PFIZER COVID-19 2020-07-02 Completed [facility] MRNA VACCINATION 00:00:00 [facility] Influenza [...] [facility] P[facility] 13 2014-01-30 Completed Universit y of Conjugate, PCV13 00:00:00 [facility] dical (Prevnar 13) Branch Influenza Virus 2014-01-30 Completed Universit y of Vaccine (3+ yrs) 00:00:00 [facility] dical Branch Pneumococcal 13 2014-01-30 Completed Universit y of Conjugate, PCV13 00:00:00 [facility] dical (Prevnar 13) Branch Influenza Virus 2014-01-30 Completed Universit y of Vaccine (3+ yrs) 00:00:00 [facility] Pneumococcal 13 2014-01-30 Completed Universit y of Conjugate, PCV13 00:00:00 [facility] dical (Prevnar 13) Branch Influenza Virus 2014-01-30 Completed Universit y of Vaccine (3+ yrs) 00:00:00 [facility] dical Branch Pneumococcal 13 2014-01-30 Completed Universit y of Conjugate, PCV13 00:00:00 [facility] dical (Prevnar 13) Branch Influenza Virus 2014-01-30 Completed Universit y of Vaccine (3+ yrs) 00:00:00 [facility] dical Branch Pneumococcal 13 2014-01-30 Completed Universit y of Conjugate, PCV13 00:00:00 [facility] dical (Prevnar 13) Branch Influenza Virus 2014-01-30 Completed Universit y of Vaccine (3+ yrs) 00:00:00 [facility] dical Branch Pneumococcal 13 2014-01-30 Completed Universit y of Conjugate, PCV13 00:00:00 [facility] dical (Prevnar 13) Branch Influenza Virus 2014-01-30 Completed Universit y of Vaccine (3+ yrs) 00:00:00 [facility] dical Branch Pneumococcal 13 2014-01-30 Completed Universit y of Conjugate, PCV13 00:00:00 [facility] dical (Prevnar 13) Branch Influenza Virus 2014-01-30 Completed Universit y of Vaccine (3+ yrs) 00:00:00 [facility] dical Branch Pneumococcal 13 2014-01-30 Completed Universit y of Conjugate, PCV13 00:00:00 [facility] dical (Prevnar 13) Branch Influenza Virus 2014-01-30 Completed Universit y of Vaccine (3+ yrs) 00:00:00 [facility] dical Branch Pneumococcal 13 2014-01-30 Completed Universit y of Conjugate, PCV13 00:00:00 [facility] dical (Prevnar 13) Branch Pneumococcal 2012-02-16 Completed [...] [facility] ical PPSV23 (PNEUMOVAX) Branch Influenza Virus 2012-02-16 [...] [facility] ical PPSV23 (PNEUMOVAX) Branch Influenza Virus 2012-02-16 [...] [facility] ical PPSV23 (PNEUMOVAX) Branch Influenza Virus 2012-02-16 Completed Universit y of Vaccine 00:00:00 [facility] PPD (TB) 2012-02-16 Completed University of 00:00:00 [facility] Hep B, Adol or Pedi 2011-09-01 Completed Unive rsity of Dosage 00:00:00 [facility] Hep B, Adol or Pedi 2011-09-01 Completed Unive rsity of Dosage 00:00:00 [facility] Hep B, Adol or Pedi 2011-09-01 Completed Unive rsity of Dosage 00:00:00 [facility] Hep B, Adol or Pedi 2011-09-01 Completed Unive rsity of Dosage 00:00:00 [facility] Hep B, Adol or Pedi 2011-09-01 Completed Unive rsity of Dosage 00:00:00 [facility] Hep B, Adol or Pedi 2011-09-01 Completed Unive rsity of Dosage 00:00:00 [facility] Hep B, Adol or Pedi 2011-09-01 Completed Unive rsity of Dosage 00:00:00 [facility] Hep B, Adol or Pedi 2011-09-01 Completed Unive rsity of Dosage 00:00:00 [facility] Hep B, Adol or Pedi 2011-09-01 Completed Unive rsity of Dosage 00:00:00 [facility] Hep B, Adol or Pedi 2011-03-17 Completed Unive rsity of Dosage 00:00:00 [facility] Hep B, Adol or Pedi 2011-03-17 Completed Unive rsity of Dosage 00:00:00 [facility] Hep B, Adol or Pedi 2011-03-17 Completed Unive rsity of Dosage 00:00:00 [facility] Hep B, Adol or Pedi 2011-03-17 Completed Unive rsity of Dosage 00:00:00 [facility] Hep B, Adol or Pedi 2011-03-17 Completed Unive rsity of Dosage 00:00:00 [facility] Hep B, Adol or Pedi 2011-03-17 Completed Unive rsity of Dosage 00:00:00 [facility] Hep B, Adol or Pedi 2011-03-17 Completed Unive rsity of Dosage 00:00:00 [facility] Hep B, Adol or Pedi 2011-03-17 Completed Unive rsity of Dosage 00:00:00 [facility] Hep B, Adol or Pedi 2011-03-17 Completed Unive rsity of Dosage 00:00:00 [facility] Influenza Virus 2011-02-10 Completed Universit y of Vaccine 00:00:00 [facility] Hep B, Adol or Pedi 2011-02-10 Completed Unive rsity of Dosage 00:00:00 [facility] Influenza Virus 2011-02-10 Completed Universit y of Vaccine 00:00:00 [facility] Hep B, Adol or Pedi 2011-02-10 Completed Unive rsity of Dosage 00:00:00 [facility] Influenza Virus 2011-02-10 Completed Universit y of Vaccine 00:00:00 [facility] Hep B, Adol or Pedi 2011-02-10 Completed Unive rsity of Dosage 00:00:00 [facility] Influenza Virus 2011-02-10 Completed Universit y of Vaccine 00:00:00 [facility] Hep B, Adol or Pedi 2011-02-10 Completed Unive rsity of Dosage 00:00:00 [facility] Influenza Virus 2011-02-10 Completed Universit y of Vaccine 00:00:00 [facility] Hep B, Adol or Pedi 2011-02-10 Completed Unive rsity of Dosage 00:00:00 [facility] Influenza Virus 2011-02-10 Completed Universit y of Vaccine 00:00:00 [facility] Hep B, Adol or Pedi 2011-02-10 [...] University of 00:00:00 [facility] Vital Signs Vital Name Observation Time Observation Value Comments Source Systolic blood 2022-04-22 19:50:00 156 mm[Hg] Univer sity of pressure [facility] Diastolic blood 2022-04-22 19:50:00 89 [facility]Hg[facility] 2022-04-22 19:50:00 69 /min [facility] Body temperature 2022-04-22 19:50:00 36.67 Amina [facility] Respiratory rate 2022-04-22 19:50:00 17 /min [facility] Body height 2022-04-22 19:50:00 162.6 cm [facility] Body weight 2022-04-22 19:50:00 80.74 kg [facility] BMI 2022-04-22 19:50:00 30.55 kg/m2 [facility] [place] [facility] Oxygen saturation in 2022-04-22 19:50:00 96 /min University of Arterial blood by [facility] Pulse oximetry Branch Systolic blood 2022-02-16 21:41:00 169 mm[Hg] Univer sity of pressure [facility] Diastolic blood 2022-02-16 21:41:00 86 mm[Hg] Unive rsity of pressure [facility] Heart rate 2022-02-16 21:41:00 51 /min [facility] [place] [facility] Body temperature 2022-02-16 21:41:00 36.56 Amina Univ ersity [facility] [place] [facility] Respiratory rate 2022-02-16 21:41:00 17 /min Univ ersity [facility] [place] [facility] Oxygen saturation in 2022-02-16 21:41:00 98 /min University of Arterial blood by [facility] Pulse oximetry Branch Body height 2022-02-11 16:02:00 162.6 cm [facility] [place] [facility] Body weight 2022-02-11 16:02:00 79.379 kg [facility] [place] [facility] BMI 2022-02-11 16:02:00 30.04 kg/m2 [facility] [place] [facility] Systolic blood 2021-11-20 13:47:00 165 mm[Hg] Univer sity of pressure [facility] Diastolic blood 2021-11-20 13:47:00 83 mm[Hg] Unive rsity of pressure [facility] Heart rate 2021-11-20 13:47:00 58 /min [facility] [place] [facility] Body temperature 2021-11-20 13:42:00 36.39 Amina Univ ers[facility] [place] [facility] Respiratory rate 2021-11-20 13:42:00 16 /min Univ ers[facility] Body height 2021-11-20 13:42:00 162.6 cm [facility] [place] [facility] Body weight 2021-11-20 13:42:00 84.369 kg [facility] [place] [facility] BMI 2021-11-20 13:42:00 31.93 kg/m2 [facility] [place] [facility] Systolic blood 2021-07-14 15:18:00 142 mm[Hg] [facility] pressure Diastolic blood 2021-07-14 15:18:00 76 mm[facility]Hg] [facility] Heart rate 2021-07-14 15:18:00 61 [facility] 2021-07-14 15:18:00 [facility] 2021-07-14 15:18:00 [facility]802 [facility] BMI 2021-07-14 15:18:00 35.87 kg[facility]m2 [facility] 2022-03-05 15:23:00 167 mm[Hg] Univer sity of pressure [facility] Diastolic blood 2022-03-05 15:23:00 105 mm[Hg] Unive rsity of [facility] Heart rate 2022-03-05 15:23:00 49 /min [facility] Body temperature 2022-03-05 15:18:00 36.67 Amina [facility] rate 2022-03-05 15:18:00 18 /min [facility] Body height 2022-03-05 15:18:00 162.6 cm [facility] Body weight 2022-03-05 15:18:00 74.707 kg [facility] BMI 2022-03-05 15:18:00 28.27 kg/m2 [facility] Oxygen saturation in 2022-02-16 21:41:00 98 /min [facility] Arterial blood by [facility] Pulse oximetry Branch Systolic blood 2020-12-08 15:48:00 125 mm[Hg] [facility] Di[facility] blood 2020-12-08 15:48:00 76 mm[Hg] [facility] pressure Heart rate 2020-12-08 15:48:00 64 /min [facility] Body temperature 2020-12-08 15:48:00 36.61 Amina [facility] Respiratory rate 2020-12-08 15:48:00 17 /min [facility] Body height 2020-12-08 15:48:00 162.6 cm [facility] Body weight 2020-12-08 15:48:00 98.884 kg [facility] BMI 2020-12-08 15:48:00 37.42 [facility]m2 [facility] O[facility] saturation in 2020-12-08 15:48:00 97 /min [facility] Arterial blood by Pulse oximetry Respitory Rate 2020-08-30 13:00:00 Memori al [facility] Systolic (mm Hg) 2020-08-30 13:00:00 Caesar rial Gray Diastolic (mm Hg) 2020-08-30 13:00:00 Mem orial Marty Systolic (mm Hg) 2020-08-30 11:00:00 Caesar rial Marty Diastolic (mm Hg) 2020-08-30 11:00:00 Mem orial Gray Temperature Oral (F) 2020-08-30 11:00:00 98.4 F [facility] Respitory Rate 2020-08-30 11:00:00 Memori al [facility] Respitory Rate 2020-08-30 10:00:00 Memori al Marty Systolic (mm Hg) 2020-08-30 10:00:00 Caesar rial Marty Diastolic (mm Hg) 2020-08-30 10:00:00 Mem orial Gray Temperature Oral (F) 2020-08-30 00:00:00 96.9 F [facility] Temperature Oral (F) 2020-08-29 11:26:00 97.6 F [facility] Weight 2020-08-29 10:30:00 [facility] BMI Calculated 2020-08-29 10:30:00 [facility] Height 2020-08-29 10:30:[address] [facility] Procedure Date / Time Performing Clinician Source Performed BASIC METABOLIC PANEL (NA, 2022-04-22 21:23:00 Paulette Gray [facility] K, CL, CO2, GLUCOSE, BUN, Medica l Branch CREATININE, [place]) CBC WITH DIFF 2022-04-22 21:23:00 Paulette Gray [place] o [facility] CONSENT/REFUSAL FOR 2022-04-22 19:45:46 Doctor Unassigned, [facility] DIAGNOSIS AND TREATMENT [place] [facility] SARS-COV-2 COVID-19 2022-03-05 16:09:27 Ronald [facility] DIMITRIS-SUCROSE VACCINE 12 Medical Branch YRS+, BIVALENT 0.3ML, IM, (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) FLU 2022-03-05 16:09:27 [facility] [place] VACC(),65+YR,0.5 Medica l Branch ML,IM,ADJUVANTED,QUAD(FLUA D) MAGNESIUM 2022-02-15 09:41:00 [facility] (NA, 2022-02-15 09:41:00 Sofia aGrcia [facility] K, CL, CO2, GLUCOSE, BUN, Medica l Branch CREATININE, CA) CBC WITH DIFF 2022-02-15 09:41:00 Radha [facility] N-TERMINAL PRO-BNP 2022-02-15 09:41:00 Sofia Garcia [facility] CBC WITH DIFF 2022-02-15 09:41:00 Radha [facility] BASIC METABOLIC PANEL (NA, 2022-02-15 09:41:00 Sofia Garcia [facility] K, CL, CO2, GLUCOSE, BUN, Medica l Branch CREATININE, CA) MAGNESIUM 2022-02-15 09:41:00 Radha [facility] N-TERMINAL PRO-BNP 2022-02-15 09:41:00 Sofia Garcia [facility] BASIC METABOLIC PANEL (NA, 2022-02-13 09:40:00 Radha Sofia [facility] K, CL, CO2, GLUCOSE, BUN, Medica l Branch CREATININE, CA) CBC WITH DIFF 2022-02-13 09:40:00 Sofia Garcia [facility] BASIC METABOLIC PANEL (NA, 2022-02-13 09:40:00 Radha Sofia [facility] K, CL, CO2, GLUCOSE, BUN, Medica l Branch CREATININE, CA) CBC WITH DIFF 2022-02-13 09:40:00 Radha [facility] TROPONIN I 2022-02-11 23:41:00 Radha [facility] N-TERMINAL PRO-BNP 2022-02-11 23:41:00 Sofia Garcia [facility] TROPONIN I 2022-02-11 23:41:00 Radha [facility] N-TERMINAL PRO-BNP 2022-02-11 23:41:00 Sofia Garcia [facility] HB ECG ROUTINE & RHYTHM 2022-02-11 22:15:36 [facility] (TTE) 2022-02-11 21:26:50 [facility] 2022-02-11 21:26:50 [facility] 2022-02-11 07:45:43 Reilly Means [facility] CONTRAST [facility] CT ABDOMEN PELVIS W 2022-02-11 07:45:43 Reilly Means [facility] CONTRAST [facility] RAPID INFLUENZA A/B 2022-02-11 06:54:00 Reilly Means [facility] RAPID INFLUENZA A/B 2022-02-11 06:54:00 Reilly Means [facility] URINALYSIS 2022-02-11 06:45:00 Reilly Means [facility] URINE CULTURE 2022-02-11 06:45:00 Reilly Means [facility] URINALYSIS 2022-02-11 06:45:00 Miguelangel [facility] URINE CULTURE 2022-02-11 06:45:00 Reilly Means [facility] HB ECG ROUTINE & RHYTHM 2022-02-11 05:22:08 Reilly Means [facility] HB ECG ROUTINE & RHYTHM 2022-02-11 05:22:08 Reilly Means [facility] BLOOD CULTURE SCREEN 2022-02-11 04:58:00 Reilly Means [facility] TROPONIN I 2022-02-11 04:58:00 Reilly Means [facility] COMP. METABOLIC PANEL 2022-02-11 04:58:00 Reilly Means [facility] ([id number]) [facility] CBC WITH DIFF 2022-02-11 04:58:00 Reilly Means [facility] PROTHROMBIN TIME / INR 2022-02-11 04:58:00 Reilly Means [facility] ACTIVATED PARTIAL THRMPLAS 2022-02-11 04:58:00 Reilly Means [facility] N-TERMINAL PRO-BNP 2022-02-11 04:58:00 Reilly Means [facility] LACTIC ACID WHOLE BLOOD 2022-02-11 04:58:00 Reilly Means [facility] COVID-19 (ID NOW RAPID 2022-02-11 04:58:00 Reilly Means [facility] TESTING) Medical Branch LAB ONLY COVID 2022-02-11 04:58:00 Reilly Means [facility] CBC WITH DIFF 2022-02-11 04:58:00 Reilly Means [facility] ACTIVATED PARTIAL THRMPLAS 2022-02-11 04:58:00 Reilly Means [facility] PROTHROMBIN TIME / INR 2022-02-11 04:58:00 Reilly Means [facility] COVID-19 (ID NOW RAPID 2022-02-11 04:58:00 Reilly Means [facility] TESTING) Medical Branch COMP. METABOLIC PANEL 2022-02-11 04:58:00 Reilly Means [facility] ([id number]) [facility] TROPONIN I 2022-02-11 04:58:00 Reilly Means [facility] N-TERMINAL PRO-BNP 2022-02-11 04:58:00 Reilly Means [facility] BLOOD CULTURE SCREEN 2022-02-11 04:58:00 Reilly Means [facility] LACTIC ACID WHOLE BLOOD 2022-02-11 04:58:00 Reilly Means [facility] LAB ONLY COVID 2022-02-11 04:58:00 Reilly Means [facility] XR CHEST 1 VW 2022-02-11 04:27:42 Reilly Means [facility] XR CHEST 1 VW 2022-02-11 04:27:42 Reilly Means [facility] HOSPITAL ADMISSION 2022-02-10 05:01:00 Doctor Unassigned, [facility] [place] [facility] [place] [facility] ADMISSION 2022-02-10 05:01:00 Doctor Unassigned, [facility] [place] [facility] ECG 12-LEAD 2021-07-14 15:14:00 [facility] [id number] 2021-06-17 00:00:00 RIKY Freedman [facility] GASTROINTESTINAL PANEL 2020-12-08 22:21:00 [facility] X[facility] ABDOMEN 1 VW 2020-12-08 18:06:32 Eliseo Arce [facility] [place] < 1 HOUR 2020-09-05 22:39:00 [facility] SURGICAL PATHOLOGY REQUEST 2020-09-05 21:54:00 Eliseo Arce [facility] XR CHEST 1 VW PORTABLE 2020-09-05 19:55:00 Eliseo Arce [facility] DISCHARGE PATIENT 2020-09-05 17:27:55 Lucas Harris [facility] [place] AN ELECTIVE 2020-09-05 16:47:23 Kirit Flood [facility] ENDOTRACHEAL [employer] EGD, INTRAOPERATIVE 2020-09-05 16:27:00 [facility] 2020-09-05 [facility] TIME (PTT) M. PROTHROMBIN TIME WITH INR 2020-09-05 15:04[facility]00 [facility] M. Plan of Care Planned Activity Planned Date Details Comments Source Future Scheduled 2022-03-25 SHINGLES VACCINES (1 Met [facility] Test 14:48:42 of 2) [code = SHINGLES VACCINES (1 of 2)] Future Scheduled 2022-03-25 BREAST CANCER [facility] Test 14:48:42 SCREENING [code = BREAST CANCER SCREENING] Future Scheduled 2022-03-25 COLONOSCOPY SCREENING [facility] Test 14:48:42 [code = COLONOSCOPY SCREENING] Future Scheduled 2022-03-25 HEPATITIS B VACCINES Met [facility] Test 14:48:42 (1 of 3 - Risk 3-dose series) [code = HEPATITIS B VACCINES (1 of 3 - Risk 3-dose series)] Future Scheduled 2022-03-25 COVID-19 VACCINE (3 - [facility] Test 14:48:42 Booster for Pfizer series) [code = COVID-19 VACCINE (3 - Booster for Pfizer series)] Future Scheduled 2022-03-25 65+ [facility] VACCINE (4 - PPSV23 if available, else PCV20) [code = 65+ PNEUMOCOCCAL VACCINE (4 - PPSV23 if available, else PCV20)] Future Scheduled 2022-03-25 INFLUENZA VACCINE Method [facility] Test 14:48:42 [code = INFLUENZA VACCINE] Future Scheduled 2022-03-25 SHINGLES VACCINES (1 Met [facility] Test 14:48:42 of 2) [code = SHINGLES VACCINES (1 of 2)] Future Scheduled 2022-03-25 BREAST CANCER [facility] Test 14:48:42 SCREENING [code = BREAST CANCER SCREENING] Future Scheduled 2022-03-25 COLONOSCOPY SCREENING [facility] Test 14:48:42 [code = COLONOSCOPY SCREENING] Future Scheduled 2022-03-25 HEPATITIS B VACCINES Met [facility] Test 14:48:42 (1 of 3 - Risk 3-dose series) [code = HEPATITIS B VACCINES (1 of 3 - Risk 3-dose series)] Future Scheduled 2022-03-25 COVID-19 VACCINE (3 - Me [facility] Test 14:48:42 Booster for Pfizer series) [code = COVID-19 VACCINE (3 - Booster for Pfizer series)] Future Scheduled 2022-03-25 65+ [facility]42 VACCINE (4 - PPSV23 if available, else PCV20) [code = 65+ PNEUMOCOCCAL VACCINE (4 - PPSV23 if available, else PCV20)] Future Scheduled 2022-03-25 INFLUENZA VACCINE Method [facility] Test 14:48:42 [code = INFLUENZA VACCINE] Future Scheduled 2022-03-25 SHINGLES VACCINES (1 Met [facility] Test 14:48:42 of 2) [code = SHINGLES VACCINES (1 of 2)] Future Scheduled 2022-03-25 BREAST CANCER [facility] Test 14:48:42 SCREENING [code = BREAST CANCER SCREENING] Future Scheduled 2022-03-25 COLONOSCOPY SCREENING [facility] Test 14:48:42 [code = COLONOSCOPY SCREENING] Future Scheduled 2022-03-25 HEPATITIS B VACCINES [facility] Test 14:48:42 (1 of 3 - Risk 3-dose series) [code = HEPATITIS B VACCINES (1 of 3 - Risk 3-dose series)] Future Scheduled 2022-03-25 COVID-19 VACCINE (3 - Me [facility] Test 14:48:42 Booster for Pfizer series) [code = COVID-19 VACCINE (3 - Booster for Pfizer series)] Future Scheduled 2022-03-25 65+ [facility] 14:48:42 VACCINE (4 - PPSV23 if available, else PCV20) [code = 65+ PNEUMOCOCCAL VACCINE (4 - PPSV23 if available, else PCV20)] Future Scheduled 2022-03-25 INFLUENZA VACCINE Method [facility] Test 14:48:42 [code = INFLUENZA VACCINE] Future Scheduled 2022-03-25 SHINGLES VACCINES (1 Met [facility] Test 14:48:42 of 2) [code = SHINGLES VACCINES (1 of 2)] Future Scheduled 2022-03-25 BREAST CANCER [facility] Test 14:48:42 SCREENING [code = BREAST CANCER SCREENING] Future Scheduled 2022-03-25 COLONOSCOPY SCREENING [facility] Test 14:48:42 [code = COLONOSCOPY SCREENING] Future Scheduled 2022-03-25 HEPATITIS B VACCINES Met [facility] Test 14:48:42 (1 of 3 - Risk 3-dose series) [code = HEPATITIS B VACCINES (1 of 3 - Risk 3-dose series)] Future Scheduled 2022-03-25 COVID-19 VACCINE (3 - [facility] Test 14:48:42 Booster for Pfizer series) [code = COVID-19 VACCINE (3 - Booster for Pfizer series)] Future Scheduled 2022-03-25 65+ [facility] 14:48:42 VACCINE (4 - PPSV23 if available, else PCV20) [code = 65+ PNEUMOCOCCAL VACCINE (4 - PPSV23 if available, else PCV20)] Future Scheduled 2022-03-25 INFLUENZA VACCINE Method [facility] Test 14:48:42 [code = INFLUENZA VACCINE] Future Scheduled 2022-03-25 SHINGLES VACCINES (1 Met [facility] Test 14:48:42 of 2) [code = SHINGLES VACCINES (1 of 2)] Future Scheduled 2022-03-25 BREAST CANCER [facility] Test 14:48:42 SCREENING [code = BREAST CANCER SCREENING] Future Scheduled 2022-03-25 COLONOSCOPY SCREENING [facility] Test 14:48:42 [code = COLONOSCOPY SCREENING] Future Scheduled 2022-03-25 HEPATITIS B VACCINES Met [facility] Test 14:48:42 (1 of 3 - Risk 3-dose series) [code = HEPATITIS B VACCINES (1 of 3 - Risk 3-dose series)] Future Scheduled 2022-03-25 COVID-19 VACCINE (3 - Me [facility] Test 14:48:42 Booster for Pfizer series) [code = COVID-19 VACCINE (3 - Booster for Pfizer series)] Future Scheduled 2022-03-25 65+ [facility] 14:48:42 VACCINE (4 - PPSV23 if available, else PCV20) [code = 65+ PNEUMOCOCCAL VACCINE (4 - PPSV23 if available, else PCV20)] Future Scheduled 2022-03-25 INFLUENZA VACCINE Method [facility] Test 14:48:42 [code = INFLUENZA VACCINE] Future Scheduled 2022-03-25 SHINGLES VACCINES (1 Met [facility] Test 14:48:42 of 2) [code = SHINGLES VACCINES (1 of 2)] Future Scheduled 2022-03-25 BREAST CANCER [facility] Test 14:48:42 SCREENING [code = BREAST CANCER SCREENING] Future Scheduled 2022-03-25 COLONOSCOPY SCREENING [facility] Test 14:48:42 [code = COLONOSCOPY SCREENING] Future Scheduled 2022-03-25 HEPATITIS B VACCINES Met [facility] Test 14:48:42 (1 of 3 - Risk 3-dose series) [code = HEPATITIS B VACCINES (1 of 3 - Risk 3-dose series)] Future Scheduled 2022-03-25 COVID-19 VACCINE (3 - Me [facility] Test 14:48:42 Booster for Pfizer series) [code = COVID-19 VACCINE (3 - Booster for Pfizer series)] Future Scheduled 2022-03-25 65+ [facility] 14:48:42 VACCINE (4 - PPSV23 if available, else PCV20) [code = 65+ PNEUMOCOCCAL VACCINE (4 - PPSV23 if available, else PCV20)] Future Scheduled 2022-03-25 INFLUENZA VACCINE Method [facility] Test 14:48:42 [code = INFLUENZA VACCINE] Future Scheduled 2022-03-25 SHINGLES VACCINES (1 Met [facility] Test 14:48:42 of 2) [code = SHINGLES VACCINES (1 of 2)] Future Scheduled 2022-03-25 BREAST CANCER [facility] Test 14:48:42 SCREENING [code = BREAST CANCER SCREENING] Future Scheduled 2022-03-25 COLONOSCOPY SCREENING [facility] Test 14:48:42 [code = COLONOSCOPY SCREENING] Future Scheduled 2022-03-25 HEPATITIS B VACCINES Met [facility] Test 14:48:42 (1 of 3 - Risk 3-dose series) [code = HEPATITIS B VACCINES (1 of 3 - Risk 3-dose series)] Future Scheduled 2022-03-25 COVID-19 VACCINE (3 - [facility] Test 14:48:42 Booster for Pfizer series) [code = COVID-19 VACCINE (3 - Booster for Pfizer series)] Future Scheduled 2022-03-25 65+ [facility] 14:48:42 VACCINE (4 - PPSV23 if available, else PCV20) [code = 65+ PNEUMOCOCCAL VACCINE (4 - PPSV23 if available, else PCV20)] Future Scheduled 2022-03-25 INFLUENZA VACCINE Method [facility] Test 14:48:42 [code = INFLUENZA VACCINE] Future Scheduled 2022-03-25 SHINGLES VACCINES (1 Met [facility] Test 14:48:42 of 2) [code = SHINGLES VACCINES (1 of 2)] Future Scheduled 2022-03-25 BREAST CANCER [facility] Test 14:48:42 SCREENING [code = BREAST CANCER SCREENING] Future Scheduled 2022-03-25 COLONOSCOPY SCREENING [facility] Test 14:48:42 [code = COLONOSCOPY SCREENING] Future Scheduled 2022-03-25 HEPATITIS B VACCINES Met [facility] Test 14:48:42 (1 of 3 - Risk 3-dose series) [code = HEPATITIS B VACCINES (1 of 3 - Risk 3-dose series)] Future Scheduled 2022-03-25 COVID-19 VACCINE (3 - [facility] Test 14:48:42 Booster for Pfizer series) [code = COVID-19 VACCINE (3 - Booster for Pfizer series)] Future Scheduled 2022-03-25 65+ [facility] 14:48:42 VACCINE (4 - PPSV23 if available, else PCV20) [code = 65+ PNEUMOCOCCAL VACCINE (4 - PPSV23 if available, else PCV20)] Future Scheduled 2022-03-25 INFLUENZA VACCINE Method [facility] Test 14:48:42 [code = INFLUENZA VACCINE] Future Scheduled 2022-03-04 SHINGLES VACCINES (1 Met [facility] Test 14:03:57 of 2) [code = SHINGLES VACCINES (1 of 2)] Future Scheduled 2022-03-04 BREAST CANCER [facility] Test 14:03:57 SCREENING [code = BREAST CANCER SCREENING] Future Scheduled 2022-03-04 COLONOSCOPY SCREENING [facility] Test 14:03:57 [code = COLONOSCOPY SCREENING] Future Scheduled 2022-03-04 HEPATITIS B VACCINES Met [facility] Test 14:03:57 (1 of 3 - Risk 3-dose series) [code = HEPATITIS B VACCINES (1 of 3 - Risk 3-dose series)] Future Scheduled 2022-03-04 COVID-19 VACCINE (3 - Me [facility] Test 14:03:57 Booster for Pfizer series) [code = COVID-19 VACCINE (3 - Booster for Pfizer series)] Future Scheduled 2022-03-04 65+ [facility] 14:03:57 VACCINE (4 - PPSV23 if available, else PCV20) [code = 65+ PNEUMOCOCCAL VACCINE (4 - PPSV23 if available, else PCV20)] Future Scheduled 2022-03-04 INFLUENZA VACCINE Method [facility] Test 14:03:57 [code = INFLUENZA VACCINE] Future Scheduled 2022-03-04 SHINGLES VACCINES (1 Met [facility] Test 14:03:57 of 2) [code = SHINGLES VACCINES (1 of 2)] Future Scheduled 2022-03-04 BREAST CANCER [facility] Test 14:03:57 SCREENING [code = BREAST CANCER SCREENING] Future Scheduled 2022-03-04 COLONOSCOPY SCREENING [facility] Test 14:03:57 [code = COLONOSCOPY SCREENING] Future Scheduled 2022-03-04 HEPATITIS B VACCINES Met [facility] Test 14:03:57 (1 of 3 - Risk 3-dose series) [code = HEPATITIS B VACCINES (1 of 3 - Risk 3-dose series)] Future Scheduled 2022-03-04 COVID-19 VACCINE (3 - Me [facility] Test 14:03:57 Booster for Pfizer series) [code = COVID-19 VACCINE (3 - Booster for Pfizer series)] Future Scheduled 2022-03-04 65+ PNEUMOCOCCAL [facility] Test 14:03:57 VACCINE (4 - PPSV23 if available, else PCV20) [code = 65+ PNEUMOCOCCAL VACCINE (4 - PPSV23 if available, else PCV20)] Future Scheduled 2022-03-04 INFLUENZA VACCINE Method [facility] Test 14:03:57 [code = INFLUENZA VACCINE] Future Scheduled 2022-03-04 SHINGLES VACCINES (1 Met [facility] Test 14:03:57 of 2) [code = SHINGLES VACCINES (1 of 2)] Future Scheduled 2022-03-04 BREAST CANCER [facility] Test 14:03:57 SCREENING [code = BREAST CANCER SCREENING] Future Scheduled 2022-03-04 COLONOSCOPY SCREENING [facility] Test 14:03:57 [code = COLONOSCOPY SCREENING] Future Scheduled 2022-03-04 HEPATITIS B VACCINES Met [facility] Test 14:03:57 (1 of 3 - Risk 3-dose series) [code = HEPATITIS B VACCINES (1 of 3 - Risk 3-dose series)] Future Scheduled 2022-03-04 COVID-19 VACCINE (3 - [facility] Test 14:03:57 Booster for Pfizer series) [code = COVID-19 VACCINE (3 - Booster for Pfizer series)] Future Scheduled 2022-03-04 65+ PNEUMOCOCCAL [facility] Test 14:03:57 VACCINE (4 - PPSV23 if available, else PCV20) [code = 65+ PNEUMOCOCCAL VACCINE (4 - PPSV23 if available, else PCV20)] Future Scheduled 2022-03-04 INFLUENZA VACCINE Method [facility] Test 14:03:57 [code = INFLUENZA VACCINE] Future Scheduled 2022-03-04 SHINGLES VACCINES (1 Met [facility] Test 14:03:57 of 2) [code = SHINGLES VACCINES (1 of 2)] Future Scheduled 2022-03-04 BREAST CANCER [facility] Test 14:03:57 SCREENING [code = BREAST CANCER SCREENING] Future Scheduled 2022-03-04 COLONOSCOPY SCREENING [facility] Test 14:03:57 [code = COLONOSCOPY SCREENING] Future Scheduled 2022-03-04 HEPATITIS B VACCINES Met [facility] Test 14:03:57 (1 of 3 - Risk 3-dose series) [code = HEPATITIS B VACCINES (1 of 3 - Risk 3-dose series)] Future Scheduled 2022-03-04 COVID-19 VACCINE (3 - Me [facility] Test 14:03:57 Booster for Pfizer series) [code = COVID-19 VACCINE (3 - Booster for Pfizer series)] Future Scheduled 2022-03-04 65+ [facility] 14:03:57 VACCINE (4 - PPSV23 if available, else PCV20) [code = 65+ PNEUMOCOCCAL VACCINE (4 - PPSV23 if available, else PCV20)] Future Scheduled 2022-03-04 INFLUENZA VACCINE Method [facility] Test 14:03:57 [code = INFLUENZA VACCINE] Future Scheduled 2022-02-11 SHINGLES VACCINES (1 Met [facility] Test 13:39:12 of 2) [code = SHINGLES VACCINES (1 of 2)] Future Scheduled 2022-02-11 BREAST CANCER [facility] Test 13:39:12 SCREENING [code = BREAST CANCER SCREENING] Future Scheduled 2022-02-11 COLONOSCOPY SCREENING [facility] Test 13:39:12 [code = COLONOSCOPY SCREENING] Future Scheduled 2022-02-11 HEPATITIS B VACCINES Met [facility] Test 13:39:12 (1 of 3 - Risk 3-dose series) [code = HEPATITIS B VACCINES (1 of 3 - Risk 3-dose series)] Future Scheduled 2022-02-11 COVID-19 VACCINE (3 - [facility] Test 13:39:12 Booster for Pfizer series) [code = COVID-19 VACCINE (3 - Booster for Pfizer series)] Future Scheduled 2022-02-11 65+ PNEUMOCOCCAL [facility] Test 13:39:12 VACCINE (4 - PPSV23 or PCV20) [code = 65+ PNEUMOCOCCAL VACCINE (4 - PPSV23 or PCV20)] Future Scheduled 2022-02-11 INFLUENZA VACCINE Method [facility] Test 13:39:12 [code = INFLUENZA VACCINE] Future Scheduled 2022-01-29 SHINGLES VACCINES (1 Met [facility] Test 14:07:20 of 2) [code = SHINGLES VACCINES (1 of 2)] Future Scheduled 2022-01-29 BREAST CANCER [facility] Test 14:07:20 SCREENING [code = BREAST CANCER SCREENING] Future Scheduled 2022-01-29 COLONOSCOPY SCREENING [facility] Test 14:07:20 [code = COLONOSCOPY SCREENING] Future Scheduled 2022-01-29 HEPATITIS B VACCINES Met [facility] Test 14:07:20 (1 of 3 - Risk 3-dose series) [code = HEPATITIS B VACCINES (1 of 3 - Risk 3-dose series)] Future Scheduled 2022-01-29 COVID-19 VACCINE (3 - Me [facility] Test 14:07:20 Booster for Pfizer series) [code = COVID-19 VACCINE (3 - Booster for Pfizer series)] Future Scheduled 2022-01-29 65+ PNEUMOCOCCAL [facility] Test 14:07:20 VACCINE (4 - PPSV23 or PCV20) [code = 65+ PNEUMOCOCCAL VACCINE (4 - PPSV23 or PCV20)] Future Scheduled 2022-01-29 INFLUENZA VACCINE Method [facility] Test 14:07:20 [code = INFLUENZA VACCINE] Future Scheduled 2022-01-29 SHINGLES VACCINES (1 Met [facility] Test 14:07:20 of 2) [code = SHINGLES VACCINES (1 of 2)] Future Scheduled 2022-01-29 BREAST CANCER [facility] Test 14:07:20 SCREENING [code = BREAST CANCER SCREENING] Future Scheduled 2022-01-29 COLONOSCOPY SCREENING [facility] Test 14:07:20 [code = COLONOSCOPY SCREENING] Future Scheduled 2022-01-29 HEPATITIS B VACCINES Met [facility] Test 14:07:20 (1 of 3 - Risk 3-dose series) [code = HEPATITIS B VACCINES (1 of 3 - Risk 3-dose series)] Future Scheduled 2022-01-29 COVID-19 VACCINE (3 - [facility] Test 14:07:20 Booster for Pfizer series) [code = COVID-19 VACCINE (3 - Booster for Pfizer series)] Future Scheduled 2022-01-29 65+ PNEUMOCOCCAL [facility] Test 14:07:20 VACCINE (4 - PPSV23 or PCV20) [code = 65+ PNEUMOCOCCAL VACCINE (4 - PPSV23 or PCV20)] Future Scheduled 2022-01-29 INFLUENZA VACCINE Method [facility] Test 14:07:20 [code = INFLUENZA VACCINE] Future Scheduled 2022-01-29 SHINGLES VACCINES (1 Met [facility] Test 14:07:20 of 2) [code = SHINGLES VACCINES (1 of 2)] Future Scheduled 2022-01-29 BREAST CANCER [facility] Test 14:07:20 SCREENING [code = BREAST CANCER SCREENING] Future Scheduled 2022-01-29 COLONOSCOPY SCREENING [facility] Test 14:07:20 [code = COLONOSCOPY SCREENING] Future Scheduled 2022-01-29 HEPATITIS B VACCINES Met [facility] Test 14:07:20 (1 of 3 - Risk 3-dose series) [code = HEPATITIS B VACCINES (1 of 3 - Risk 3-dose series)] Future Scheduled 2022-01-29 COVID-19 VACCINE (3 - Me [facility] Test 14:07:20 Booster for Pfizer series) [code = COVID-19 VACCINE (3 - Booster for Pfizer series)] Future Scheduled 2022-01-29 65+ PNEUMOCOCCAL [facility] Test 14:07:20 VACCINE (4 - PPSV23 or PCV20) [code = 65+ PNEUMOCOCCAL VACCINE (4 - PPSV23 or PCV20)] Future Scheduled 2022-01-29 INFLUENZA VACCINE Method [facility] Test 14:07:20 [code = INFLUENZA VACCINE] Future Scheduled 2022-01-29 SHINGLES VACCINES (1 Met [facility] Test 14:07:20 of 2) [code = SHINGLES VACCINES (1 of 2)] Future Scheduled 2022-01-29 BREAST CANCER [facility] Test 14:07:20 SCREENING [code = BREAST CANCER SCREENING] Future Scheduled 2022-01-29 COLONOSCOPY SCREENING [facility] Test 14:07:20 [code = COLONOSCOPY SCREENING] Future Scheduled 2022-01-29 HEPATITIS B VACCINES Met [facility] Test 14:07:20 (1 of 3 - Risk 3-dose series) [code = HEPATITIS B VACCINES (1 of 3 - Risk 3-dose series)] Future Scheduled 2022-01-29 COVID-19 VACCINE (3 - [facility] Test 14:07:20 Booster for Pfizer series) [code = COVID-19 VACCINE (3 - Booster for Pfizer series)] Future Scheduled 2022-01-29 65+ [facility] 14:07:20 VACCINE (4 - PPSV23 or PCV20) [code = 65+ PNEUMOCOCCAL VACCINE (4 - PPSV23 or PCV20)] Future Scheduled 2022-01-29 INFLUENZA VACCINE Method [facility] Test 14:07:20 [code = INFLUENZA VACCINE] Future Scheduled 2022-01-20 SHINGLES VACCINES (1 Met [facility] Test 06:12:34 of 2) [code = SHINGLES VACCINES (1 of 2)] Future Scheduled 2022-01-20 Screening for [facility] Test 06:12:34 malignant neoplasm of cervix (procedure) [code = [id number]] Future Scheduled 2022-01-20 BREAST CANCER [facility] Test 06:12:34 SCREENING [code = BREAST CANCER SCREENING] Future Scheduled 2022-01-20 COLONOSCOPY SCREENING [facility] Test 06:12:34 [code = COLONOSCOPY SCREENING] Future Scheduled 2022-01-20 HEPATITIS B VACCINES Met [facility] Test 06:12:34 (1 of 3 - Risk 3-dose series) [code = HEPATITIS B VACCINES (1 of 3 - Risk 3-dose series)] Future Scheduled 2022-01-20 COVID-19 VACCINE (3 - [facility] Test 06:12:34 Booster for Pfizer series) [code = COVID-19 VACCINE (3 - Booster for Pfizer series)] Future Scheduled 2022-01-20 65+ [facility]:12:34 VACCINE (4 - PPSV23 or PCV20) [code = 65+ PNEUMOCOCCAL VACCINE (4 - PPSV23 or PCV20)] Future Scheduled 2022-01-20 INFLUENZA VACCINE Method [facility] Test 06:12:34 [code = INFLUENZA VACCINE] Future Scheduled 2022-01-16 SHINGLES VACCINES (1 Met [facility] Test 12:09:25 of 2) [code = SHINGLES VACCINES (1 of 2)] Future Scheduled 2022-01-16 Screening for [facility] Test 12:09:25 malignant neoplasm of cervix (procedure) [code = [id number]] Future Scheduled 2022-01-16 BREAST CANCER [facility] Test 12:09:25 SCREENING [code = BREAST CANCER SCREENING] Future Scheduled 2022-01-16 COLONOSCOPY SCREENING [facility] Test 12:09:25 [code = COLONOSCOPY SCREENING] Future Scheduled 2022-01-16 HEPATITIS B VACCINES Met [facility] Test 12:09:25 (1 of 3 - Risk 3-dose series) [code = HEPATITIS B VACCINES (1 of 3 - Risk 3-dose series)] Future Scheduled 2022-01-16 COVID-19 VACCINE (3 - [facility] Test 12:09:25 Booster for Pfizer series) [code = COVID-19 VACCINE (3 - Booster for Pfizer series)] Future Scheduled 2022-01-16 65+ PNEUMOCOCCAL [facility] Test 12:09:25 VACCINE (4 - PPSV23 or PCV20) [code = 65+ PNEUMOCOCCAL VACCINE (4 - PPSV23 or PCV20)] Future Scheduled 2022-01-16 INFLUENZA VACCINE Method [facility] Test 12:09:25 [code = INFLUENZA VACCINE] Future Scheduled 2022-01-14 SHINGLES VACCINES (1 Met [facility] Test 04:11:46 of 2) [code = SHINGLES VACCINES (1 of 2)] Future Scheduled 2022-01-14 Screening for [facility] Test 04:11:46 malignant neoplasm of cervix (procedure) [code = [id number]] Future Scheduled 2022-01-14 BREAST CANCER [facility] Test 04:11:46 SCREENING [code = BREAST CANCER SCREENING] Future Scheduled 2022-01-14 COLONOSCOPY SCREENING [facility] Test 04:11:46 [code = COLONOSCOPY SCREENING] Future Scheduled 2022-01-14 HEPATITIS B VACCINES [facility] Test 04:11:46 (1 of 3 - Risk 3-dose series) [code = HEPATITIS B VACCINES (1 of 3 - Risk 3-dose series)] Future Scheduled 2022-01-14 COVID-19 VACCINE (3 - [facility] Test 04:11:46 Booster for Pfizer series) [code = COVID-19 VACCINE (3 - Booster for Pfizer series)] Future Scheduled 2022-01-14 65+ PNEUMOCOCCAL [facility] Test 04:11:46 VACCINE (4 - PPSV23 or PCV20) [code = 65+ PNEUMOCOCCAL VACCINE (4 - PPSV23 or PCV20)] Future Scheduled 2022-01-14 INFLUENZA VACCINE Method [facility] Test 04:11:46 [code = INFLUENZA VACCINE] Future Scheduled 2021-08-26 Screening for [facility] Test 13:02:23 malignant neoplasm of cervix (procedure) [code = [id number]] Future Scheduled 2021-08-26 BREAST CANCER [facility] Test 13:02:23 SCREENING [code = BREAST CANCER SCREENING] Future Scheduled 2021-08-26 COLONOSCOPY SCREENING [facility] Test 13:02:23 [code = COLONOSCOPY SCREENING] Future Scheduled 2021-08-26 Screening for [facility] Test 13:02:23 malignant neoplasm of lung (procedure) [code = [id number]] Future Scheduled 2021-08-26 SHINGLES VACCINES (#1) [facility] Test 13:02:23 [code = SHINGLES VACCINES (#1)] Future Scheduled 2021-08-26 COVID-19 VACCINE (3 - [facility] [facility] Test 13:02:23 Pfizer risk 4-dose series) [...] Clinicians Facility Department ID 2022-02-18 Outpatient W [facility] [id number] Coast[place] 14:30:[address] [place] [address] 2021-07-14 Outpatient SADIKOVIC, [facility] [id number] [place] 09:33:51 [facility] 2021-06-02 Outpatient HEMATPOUR, [facility] [id number] [place] 13:58:59 [facility] 2021-04-28 Outpatient HEMATPOUR, [facility] [id number] [place] 11:21[facility] 2021-03-20 Emergency [facility] [id number] Univers 16:07:40 [facility] 2020-12-12 Outpatient HEMATPOUR, [facility] [id number] [place] 08:16:46 [facility] 2020-10-31 Outpatient HEMATPOUR, [facility] [id number] [place] 09:44:[facility] 2020-09-30 Outpatient HEMATPOUR, [facility] [id number] [place] 13:16:03 [facility] 2022-04-22 2022-04-22 Emergency MEGHA MORRISSEY ERT [id number] Univers 13:55:00 17:00:[address] [facility] 2022-04-22 2022-04-22 MEGHA Graves 1.2.995.396 [id number] Univers 13:55:00 17:00:00 Paulette BULLOCK 350.1.13.10 i ty of [place] 4.2.7.2.686 [facility] [id number] [facility] 0[address] [place] 2022-04-07 2022-04-07 Outpatient R [facility], [facility] [id number] Univers 20:40:00 20:40:00 ATTENDING ity [facility] 2022-04-07 2022-04-07 Telephone Beltran, 1.2.840.7 [id number] Univers 00:00:00 00:00:00 Robbi Hairston 91633.1.1 i ty of 3.104.2.7 [place] .3.688318 Medica l .8 [place] 2022-03-05 2022-03-05 [place] Administrator Santiago Cardenas 1.2.840.1 [id number] Univers 13:45:00 14:00:00 Visit [facility] 12331.1.1 ity of 3.104.2.7 [place] .3.042033 Medica l .8 [place] 2022-03-05 2022-03-05 Outpatient R [facility] [id number] Univers 13:45:00 13:45:00 [facility] 2022-03-05 2022-03-05 Office Ronald, 1.2.840.5 [id number] Univers 13:00:00 13:30:00 Visit Santiago 90406.1.1 ity of 3.104.2.7 [place] .3.906585 Medica l .[address] [place] [address] 2022-02-26 2022-02-26 Outpatient R [facility] [id number] Univers 08:30:00 08:30:00 [facility] 2022-02-26 2022-02-26 Outpatient R [facility] [id number] Univers 08:30:00 08:30:00 [facility] 2022-02-17 2022-02-17 Transition Stevo, 1.2.840.4 [id number] Univers 00:00:00 00:00:00 of Care Isaias Arredondo 39195.1.1 it y of 3.104.2.7 [place] .3.345425 Medica l .8 Branch 2022-02-10 2022-02-16 Inpatient X MEGHA MARIE FAVIO [id number] Univers 22:59:00 19:27:00 PETER ity of [facility] 2022-02-10 2022-02-16 Hospital Reilly Means 1.2.840.1 [id number] Univers 22:59:00 19:27:00 Encounter CorneliusOfe conklin 44880.1.1 ity of [place] 3.[place].2.7 [place] .3.273515 Medica l .8 Branch 2022-02-11 2022-02-11 Telephone East, 1.2.840.6 [id number] Univers 00:00:00 00:00:00 Santiago 06802.1.1 ity of 3.104.2.7 [place] .3.543766 Medica l .8 Branch 2022-02-10 2022-02-10 Travel 1.2.840.1 1.2.828.705 4372 [id number] Univers 00:00:00 00:00:00 92020.1.1 350.1.13.10 ity of 3.104.2.7 4.[place]7.3.698 [place] .3.603426 084.8 Medica l .8 [place] 2022-01-30 2022-01-30 Telephone East, 1.2.840.0 [id number] [id number] Univers 00:00:00 00:00:00 Santiago 94129.1.1 ity of 3.104.2.7 [place] .3.633119 Medica l .8 Branch 2022-01-06 2022-01-06 Orders Doctor FERMIN 1.2.840.114 [id number] Univers 00:00:00 00:00:00 Only Unassigned, JACKELINE 350.1.13.10 ity of [place] [facility] 4.2.7.2.686 Yomi as [id number] [facility] porfirio [address] [place] [address] 2021-12-25 2021-12-25 Orders Doctor FERMIN 1.2.840.114 [id number] Univers 00:00:00 00:00:00 Only Unassigned, JACKELINE 350.1.13.10 ity of [place] [facility] 4.2.7.2.686 Yomi as [phone] [facility] 009 Branch 2021-12-12 2021-12-13 Emergency X Bill COLES [facility] ERT [id number] Univers 23:53:00 01:52:00 ity of [facility] 2021-12-12 2021-12-13 Emergency Bill Coles [facility] 1.2.840.114 [id number] Univers 23:53:00 01:52:00 Kiersten BULLOCK 350.1.13.10 i ty [place] [phone] [facility] [address] [place] 2021-11-20 2021-11-20 [place] Administrator [facility] UNIVERSIT 1.2.840.114 [id number] Univers 09:45:00 10:00:00 Visit [facility] 350.1.13.10 ity of [facility] 4.2.[place].2.[place] [id number] [facility] 316 Branch 2021-11-20 2021-11-20 Office [facility] 1.2.728.593 4824 9084 Univers 08:30:00 09:00:00 Visit [facility] 350.1.13.10 i ty of [facility] 4.2.7.2.[place] [id number] [facility] [address] [place] 2021-11-20 2021-11-20 Outpatient R [facility] [id number] Univers 08:30:00 08:30:00 [facility] 2021-11-20 2021-11-20 Outpatient R [facility] [id number] Univers 08:30:00 08:30:00 [facility] 2021-11-20 2021-11-20 Outpatient R [facility] [id number] Univers 08:30:00 08:30:00 [facility] 2021-11-20 2021-11-20 Outpatient R [facility] [id number] Univers 08:30:00 08:30:00 SANTIAGO macielcharlie [facility] 2021-10-24 2021-10-24 Emergency X ESVIN [facility] ERT [id number] Univers 16:27:00 22:26:00 CHARITY barbosa [facility] 2021-10-24 2021-10-24 Emergency X ESVIN [facility] ERT [id number] Univers 16:27:00 22:26:00 CHARITY barbosa [facility] 2021-10-24 2021-10-24 Emergency Reilly Means [facility] 1.2.840. 114 [id number] Univers 16:27:00 22:26:00 Charity Mcallister 350.1.13.10 ity [facility] 4.2.7.2.686 [facility] [id number] [address] 2021-10-23 2021-10-24 Emergency X ESVIN [facility] ERT [id number] Univers 20:22:00 02:57:00 CHARITY barbosa [facility] 2021-10-23 2021-10-24 [facility] 1.2.573.474 [id number] Univers 20:22:00 02:57:00 Charity BULLOCK 350.1.13.10 ity [facility] 4.2.7.2.686 [facility] [id number] [address] 2021-09-07 2021-09-07 Outpatient R SELF, [facility] [id number] Univers 08:00:00 08:00:00 GADIEL barbosa lela rodas [facility] 2021-09-07 2021-09-07 Outpatient R SELF, [facility] [id number] Univers 08:00:00 08:00:00 GADIEL barbosa o f [facility] 2021-08-21 2021-08-21 Outpatient R [facility] [id number] Univers 10:45:00 10:45:00 SANTIAGO barbosa [facility] 2021-08-21 2021-08-21 [place] Administrator Santiago Cardenas 1.2.840.1 [id number] Univers 10:45:00 10:45:00 Visit [facility] 28959.1.1 ity of 3.104.2.7 [place] .3.788170 Medica l .8 Branch 2021-08-21 2021-08-21 Office East, 1.2.840.0 [id number] Univers 08:30:00 09:00:00 Visit Santiago 59565.1.1 ity of 3.104.2.7 [place] .3.267797 Medica l .8 Branch 2021-08-21 2021-08-21 Office East, UNIVERSIT 1.2.287.669 [id number] [id number] Univers 08:30:00 09:00:00 Visit Santiago [facility] 350.1.13.10 i ty of CL[place]ICS 4[place] [id number] [facility] [address] [place] 2021-08-21 2021-08-21 Outpatient [facility] [id number] Univers 08:30:00 08:30:00 SANTIAGO ity of [facility] 2021-08-21 2021-08-21 Travel 1.2.840.1 1.2.460.172 3918 3865 Univers 00:00:00 00:00:00 40343.1.1 350.1.13.10 ity of 3.104.2.7 4.2.7.3.698 [place] .3.103803 084.8 Medica l .8 Branch 2021-08-14 2021-08-14 Telephone East, 1.2.840.6 [id number] Univers 00:00:00 00:00:00 Santiago 11732.1.1 ity of 3.104.2.7 [place] .3.846035 Medica l .8 Branch 2021-08-13 2021-08-13 Telephone East, 1.2.840.7 [id number] Univers 00:00:00 00:00:00 Santiago 41063.1.1 ity of 3.104.2.7 [place] .3.741920 Medica l .8 Branch 2021-08-112021-08-11 Outpatient R [facility] [id number] Univers 08:00:00 08:00:00 [facility] 2021-08-05 2021-08-05 Inpatient EDUARDO LealCL OUTD [id number] [facility] 05:24:00 05:24:00 Mike 31 [facility] 2021-07-20 2021-07-20 Outpatient R [facility] [id number] [facility] 10:00:00 10:00:00 [facility] 2021-07-14 2021-07-14 Office Sadikovic, UTP 6400 1.2.840.114 13 [id number] [place] 08:45:00 09:34:[address] 350.1.13.58 Health 9.2.7.2.686 [id number] 1 2021-07-09 2021-07-09 Telephone Hematpour, UTP 6400 1.2.840.114 [id number] [place] 00:00:00 00:00:[address] 350.1.13.58 Health 9.2.7.2.686 [id number] 1 2021-07-09 2021-07-09 Telephone H[place], UTP 6400 1.2.840.114 [id number] [place] 00:00:00 00:00:[address] 350.1.13.58 Health 9.2.7.2.686 [id number] 1 2021-07-03 2021-07-03 Outpatient R [facility] [id number] Univers 08:00:00 08:00:00 [facility] 2021-06-17 2021-06-17 Inpatient EDUARDO LealLA INTE.02 [id number] [facility] 10:56:00 14:36:00 Mike 47 [facility] 2021-06-15 2021-06-15 Outpatient R [facility] [id number] Univers 10:15:00 11:07:21 GADIEL vogel f [facility] 2021-06-15 2021-06-15 Outpatient R SELF, [facility] [id number] Univers 10:15:00 10:15:00 GADIEL rodas [facility] 2021-06-15 2021-06-15 Outpatient R SELF, [facility] [id number] Univers 10:15:00 10:15:00 GADIEL rodas [facility] 2021-06-15 2021-06-15 Orders Doctor 1.2.840.3 [id number] Univers 00:00:00 00:00:00 Only Unassigned, 62538.1.1 ity of [place] 3.104.2.7 [place] .3.885767 Medica l .8 Branch 2021-06-15 2021-06-15 Travel 1.2.840.1 1.2.289.857 9627 7719 Univers 00:00:00 00:00:00 11636.1.1 350.1.13.10 ity of 3.104.2.7 4.2.7.3.698 [place] .3.649185 084.8 Medica l .8 Branch 2021-06-11 2021-06-11 Refill East, UNIVERSIT 1.2.446.435 5396 9185 Univers 00:00:00 00:00:00 [facility] 350.1.13.10 i ty of CL[place] 214.2404968 [facility] 089 Branch 2021-06-11 2021-06-11 Refill East, 1.2.840.2 [id number] 185 Univers 00:00:00 00:00:00 [place] 61463.1.1 ity of 3.104.2.7 [place] .3.487961 Medica l .8 Branch 2021-06-05 2021-06-05 Outpatient R EAST, [facility] [id number] Univers 09:00:00 09:00:00 SANTIAGO ity of [facility] 2021-06-02 2021-06-02 Telephone East, UNIVERSIT 1.2.840.114 [id number] Univers 00:00:00 00:00:00 [facility] 350.1.13.10 i ty of CL[place] 4[place].2.[place] [id number] [facility] [address] [place] 2021-06-02 2021-06-02 Telephone East, 1.2.840.8 [id number] [id number] Univers 00:00:00 00:00:00 Santiago 71317.1.1 ity of 3.104.2.7 [place] .3.264407 Medica l .8 Branch 2021-05-29 2021-05-29 Telephone East, 1.2.840.9 [id number] [id number] Univers 00:00:00 00:00:00 Santiago 04378.1.1 ity of 3.104.2.7 [place] .3.565788 Medica l .8 [place] 2021-05-29 2021-05-29 Telephone East, 1.2.840.7 [id number] 902 [id number] Univers 00:00:00 00:00:00 Santiago 34106.1.1 ity of 3.104.2.7 [place] .3.955682 Medica l .8 [place] 2021-05-25 2021-05-25 Outpatient R RODO, [facility] [id number] Univers 08:00:00 08:00:00 GADIEL rodas [facility] 2021-04-29 2021-04-29 Outpatient Marika REEVES, [facility] [id number] Univers 08:00:00 08:00:00 NIKOLAI barbosa [facility] 2021-04-28 2021-04-28 Telephone Jailyn 1.2.840.6 [id number] Methodi 00:00:00 00:00:[address] 3.430.2.7 Hospit a .3.558485 l .8 2021-04-28 2021-04-28 Telephone Chidimasa, 1.2.840.9 [id number] Methodi 00:00:00 00:00:[address] 3.430.2.7 Hospit a .3.304819 l .8 2021-04-28 2021-04-28 Telephone [place], UTP 6400 1.2.840.114 [id number] [place] 00:00:00 00:00:[address] 350.1.13.58 Health 9.2.7.2.686 [id number] 1 2021-03-31 2021-03-31 Orders Roslynlion, 1.2.840.1 [id number] Methodi 00:00:00 00:00:00 Only Sarai CorbinChelsie 54085.1.1 979 s t 3.430.2.7 Hospit a .3.016496 l .8 2021-03-30 2021-03-30 Outpatient R RODO, [facility] [id number] Univers 08:45:00 08:45:00 GADIEL rodas [facility] 2021-03-24 2021-03-24 Telephone Jailyn, 1.2.840.1 [id number] Methodi 00:00:00 00:00:[address] 3.430.2.7 Hospit a .3.267809 l .8 2021-02-13 2021-02-13 Telephone Ronald, 1.2.840.9 [id number] 876 [id number] [facility] 00:00:00 00:00:00 Santiago 46553.1.1 ity of 3.104.2.7 [place] .3.729802 Medica l .8 [place] 2021-01-28 2021-01-28 Outpatient [facility] [id number] Univers 08:45:00 09:37:00 NIKOLAI barbosa of [facility] 2021-01-28 2021-01-28 Travel 1.2.840.1 1.2.023.444 6228 9777 Univers 00:00:00 00:00:00 47985.1.1 350.1.13.10 ity of 3.104.2.7 4.[place].7.3.698 [place] .3.922608 084.8 Medica l .8 [place] 2021-01-19 2021-01-19 Telephone Prabhu, 1.2.840.1 [id number] [id number] Methodi 00:00:00 00:00:[address] 3.430.2.7 Hospit a .3.910916 l .8 2021-01-04 2021-01-04 Dmitry Bass, 1.2.840.8 [id number] 696 Univers 00:00:00 00:00:00 (Out) Dagoberto H 22822.1.1 ity of 3.104.2.7 [place] .3.111168 Medica l .8 Branch 2021-01-04 2021-01-04 Dmitry Bass, 1.2.840.1 [id number] 696 Univers 00:00:00 00:00:00 (Out) Dagoberto H 47205.1.1 ity of 3.104.2.7 [place] .3.491433 Medica l .8 Branch 2021-01-03 2021-01-03 Dmitry Bass, 1.2.840.4 [id number] 790 Univers 00:00:00 00:00:00 (Out) Dagoberto H 21672.1.1 ity of 3.104.2.7 [place] .3.431417 Medica l .8 [place] 2021-01-03 2021-01-03 Dmitry Bass, 1.2.840.3 [id number] 22808 790 Univers 00:00:00 00:00:00 (Out) Dagoberto H 25314.1.1 ity of 3.104.2.7 [place] .3.213750 Medica l .8 [place] 2021-01-02 2021-01-02 Outpatient R [facility] [id number] Univers 13:40:00 13:40:00 ity of [facility] 2021-01-02 2021-01-02 Laboratory Cuba Franks 1.2.840.9 [id number] Univers 12:14:13 12:57:34 Only Lab, [place]ob I 01888.1.1 ity of 3.104.2.7 [place] .3.524442 Medica l .8 [place] 2021-01-02 2021-01-02 Laboratory Cuba Franks 1.2.840.9 [id number] [id number] Univers 12:14:13 12:57:34 Only Lab, Adc Fam Pob I 75394.1.1 ity of 3.104.2.7 [place] .3.977317 Medica l .8 Branch 2021-01-02 2021-01-02 Travel 1.2.840.1 1.2.059.710 8874 2306 Univers 00:00:00 00:00:00 93956.1.1 350.1.13.10 ity of 3.104.2.7 4.2.7.3.698 [place] .3.219512 084.8 Medica l .8 Branch 2021-01-02 2021-01-02 Letter Doctor 1.2.840.2 [id number] 948 Univers 00:00:00 00:00:00 (Out) Unassigned, 88336.1.1 ity of [place] 3.104.2.7 [place] .3.344507 Medica l .8 Branch 2021-01-02 2021-01-02 Letter Doctor 1.2.840.7 [id number] 946 Univers 00:00:00 00:00:00 (Out) Unassigned, 18036.1.1 ity of [place] 3.104.2.7 [place] .3.851622 Medica l .8 Branch 2021-01-02 2021-01-02 Travel 1.2.840.1 1.2.864.921 1178 2306 Univers 00:00:00 00:00:00 15944.1.1 350.1.13.10 ity of 3.104.2.7 4.2.7.3.698 [place] .3.571311 084.8 Medica l .8 Branch 2021-01-02 2021-01-02 Letter Doctor 1.2.840.6 [id number] 948 Univers 00:00:00 00:00:00 (Out) Unassigned, 12788.1.1 ity of [place] 3.104.2.7 [place] .3.280662 Medica l .8 Branch 2021-01-02 2021-01-02 Letter Doctor 1.2.840.8 [id number] 02416 946 Univers 00:00:00 00:00:00 (Out) Unassigned, 18874.1.1 ity of [place] 3.104.2.7 [place] .3.974621 Medica l .8 Branch 2020-12-22 2020-12-22 Telephone Beltran, 1.2.840.1 [id number] 862 [id number] Univers 00:00:00 00:00:00 Rossandynda R 79066.1.1 i ty of 3.104.2.7 [place] .3.104754 Medica l .8 Branch 2020-12-22 2020-12-22 Telephone Beltran, 1.2.840.1 [id number] 862 99771 Univers 00:00:00 00:00:00 Eligionda R 62744.1.1 i ty of 3.104.2.7 [place] .3.665841 Medica l .8 [place] 2020-12-12 2020-12-12 Office H[place]pour, UTP 6400 1.2.840.114 12 [id number] 07:42:02 08:18:50 [address] 350.1.13.58 9.2.7.2.686 [id number] 1 2020-12-12 2020-12-12 Office Hematpour, UTP 6400 1.2.840.114 12 [id number] [place] 07:42:02 08:18:50 Visit [address] 350.1.13.58 Health 9.2.7.2.686 [id number] 1 2020-12-09 2020-12-09 Telephone Meisenbach, 1.2.840.1 [id number] Methodi 00:00:00 00:00:00 Sarai Lieberman 91600.1.1 316 s t 3.430.2.7 Hospit a .3.786787 l .8 2020-12-08 2020-12-08 [facility], 1.2.840.1 [id number] 2100 586394 Methodi 12:35:54 23:59:00 Encounter Ray 93613.1.[address] 3.430.2.7 Hospit a .3.238251 l .8 2020-12-08 2020-12-08 Lab Jailyn, 1.2.840.1 [id number] 71168 58142 Methodi 17:25:00 17:30:[address] 3.430.2.7 Hospit a .3.436496 l .8 2020-12-08 2020-12-08 Office Jailyn, 1.2.840.1 [id number] 91598 97526 Methodi 10:30:00 11:39:56 Visit Ray 26852.1.[address] 3.430.2.7 Hospit a .3.501680 l .8 2020-12-08 2020-12-08 Travel 1.2.840.1 1.2.119.546 1086 387939 Methodi 00:00:00 00:00:[address] 3.430.2.7 0.2.7.3.698 Ho spita .3.111150 084.8 l .8 2020-12-02 2020-12-02 [place] Administrator Santiago Cardenas 1.2.840.1 [id number] Univers 10:20:06 10:36:19 Visit [facility] 49746.1.1 ity of 3.104.2.7 [place] .3.621022 Medica l .8 [place] 2020-12-02 2020-12-02 [place] Administrator Santiago Cardenas 1.2.840.1 [id number] Univers 10:20:06 10:36:19 Visit [facility] 31259.1.1 ity of 3.104.2.7 [place] .3.451015 Medica l .8 [place] 2020-12-02 2020-12-02 [place] Administrator [facility] UNIVERSIT 1.2.840.114 8 [id number] 10:20:06 10:36:19 Visit [facility] 350.1.13.10 CLINICS 4.2.7.2.686 514.6907876 316 2020-12-02 2020-12-02 Office Ronald, 1.2.840.5 [id number] 528 Univers 08:31:37 09:01:37 Visit Santiago 17882.1.1 ity of 3.104.2.7 [place] .3.701334 Medica l .8 [place] 2020-12-02 2020-12-02 Outpatient R [facility] [id number] Univers 09:00:00 09:00:00 SANTIAGO ity of [facility] 2020-11-25 2020-11-25 Office Beltran, 1.2.840.7 [id number] 865 Univers 11:06:30 11:58:14 Visit Robbi Marika 97743.1.1 i ty of 3.104.2.7 [place] .3.811206 Medica l .8 [place] 2020-11-25 2020-11-25 Office Beltran, 1.2.840.2 [id number] 84689 865 Univers 11:06:30 11:58:14 Visit Robbi Marika 30245.1.1 i ty of 3.104.2.7 [place] .3.163827 Medica l .8 [place] 2020-11-25 2020-11-25 [facility] 1.2.840.114 [id number] 11:06:30 11:58:14 Visit Robbi Marika SPECIFICATION MANAGER 350.1.13.10 [facility] 4.2.7.2.686 MATERNAL [id number] & CHILD [address] [place] [address] 2020-11-25 2020-11-25 Outpatient R [facility] [id number] Univers 11:00:00 11:00:00 ity of [facility] 2020-11-25 2020-11-25 Telephone Beltran, 1.2.840.8 [id number] 855 76408 Univers 00:00:00 00:00:00 Robbi Marika 92269.1.1 i ty of 3.104.2.7 [place] .3.183815 Medica l .8 [place] 2020-11-25 2020-11-25 Refill [facility], 1.2.840.9 [id number] [id number] 592 Univers 00:00:00 00:00:00 Santiago 89423.1.1 ity of 3.104.2.7 [place] .3.978688 Medica l .8 Branch 2020-11-25 2020-11-25 Travel 1.2.840.1 1.2.705.437 2235 0247 Univers 00:00:00 00:00:00 62745.1.1 350.1.13.10 ity of 3.104.2.7 4.2.7.3.698 [place] .3.967478 084.8 Medica l .8 Branch 2020-11-25 2020-11-25 Orders Doctor 1.2.840.4 [id number] 38004 064 Univers 00:00:00 00:00:00 Only Unassigned, 55098.1.1 ity of [place] 3.104.2.7 [place] .3.344608 Medica l .8 Branch 2020-11-25 2020-11-25 Telephone Beltran, 1.2.840.3 [id number] 855 50549 Univers 00:00:00 00:00:00 Roshunda R 09892.1.1 i ty of 3.104.2.7 [place] .3.403101 Medica l .8 Branch 2020-11-25 2020-11-25 Refill [place], 1.2.840.5 [id number] 592 Univers 00:00:00 00:00:00 [place] 84696.1.1 ity of 3.104.2.7 [place] .3.730591 Medica l .8 Branch 2020-11-25 2020-11-25 Travel 1.2.840.1 1.2.436.642 2705 0247 Univers 00:00:00 00:00:00 77964.1.1 350.1.13.10 ity of 3.104.2.7 4[place].3.698 [place] .3.135030 084.8 Medica l .8 Branch 2020-11-25 2020-11-25 Orders Doctor 1.2.840.8 [id number] 064 Univers 00:00:00 00:00:00 Only Unassigned, 83245.1.1 ity of [place] 3.104.2.7 [place] .3.431871 Medica [address] 2020-11-25 2020-11-25 [facility] 1.2.490.165 1619 4592 00:00:00 00:00:00 [facility] 350.1.13.10 [facility] 4.2.7.2.686 [id number] 089 2020-11-25 2020-11-25 Telephone [facility] 1.2.125.226 2243 0821 00:00:00 00:00:00 Robbi Hairston SPECIFICATION MANAGER 350.1.13.10 [facility] 4.2.7.2.686 MATERNAL [id number] & CHILD [address] [place] [address] 2020-11-14 2020-11-14 Abstract Clark, 1.2.840.1 [id number] 82030 50420 Methodi 00:00:00 00:00:[address] 3.430.2.7 Hospit a .3.370176 l .8 2020-11-14 2020-11-14 Telephone Clark 1.2.840.1 [id number] 2100 025697 Methodi 00:00:00 00:00:[address] 3.430.2.7 Hospit a .3.841548 l .8 2020-11-12 2020-11-12 Outpatient [facility] [id number] Univers 08:30:00 08:30:00 SANTIAGO familia [facility] 2020-11-07 2020-11-07 Telephone KIMBERLEY Ortiz 6400 1.2.840.114 124 [id number] 00:00:00 00:00:[address] 350.1.13.58 9.2.7.2.686 [id number] 1 2020-11-07 2020-11-07 Telephone Agustina Ortiz 6400 1.2.840.11 4 [id number] [place] 00:00:00 00:00:[address] 350.1.13.58 Health 9.2.7.2.686 [id number] 1 2020-10-31 2020-10-31 Office KIMBERLEY Layton 6400 1.2.840.114 12 [id number] [place] 07:54:00 09:45:[address] 350.1.13.58 Health 9.2.7.2.686 [id number] 1 2020-10-30 2020-10-30 Abstract Rody Maguire UTP 6400 1.2.840.1 14 [id number] [place] 00:00:00 00:00:[address] 350.1.13.58 Health 9.2.7.2.686 [id number] 1 2020-10-29 2020-10-29 Refill [place], 1.2.840.8 [id number] 65488 400 Univers 00:00:00 00:00:00 [place] 69392.1.1 ity of 3.104.2.7 [place] .3.337030 Medica l .8 [place] 2020-10-29 2020-10-29 Refill [place], 1.2.840.4 [id number] 46516 400 Univers 00:00:00 00:00:00 [place] 14717.1.1 ity of 3.104.2.7 [place] .3.113646 Medica l .8 [place] 2020-10-27 2020-10-27 Telephone Jailyn, 1.2.840.7 [id number] Methodi 00:00:00 00:00:[address] 3.430.2.7 Hospit a .3.685558 l .8 2020-10-24 2020-10-24 Telephone Clark, 1.2.840.1 [id number] 2100 764040 Methodi 00:00:00 00:00:[address] 3.430.2.7 Hospit a .3.570643 l .8 2020-10-22 2020-10-22 Outpatient R SELF, [facility] [id number] Univers 13:00:00 13:00:00 GADIEL rodas [facility] 2020-10-22 2020-10-22 Travel 1.2.840.1 1.2.920.712 2882 3839 Univers 00:00:00 00:00:00 85770.1.1 350.1.13.10 ity of 3.104.2.7 4[place]7.3.698 [place] .3.598732 084.8 Medica l .8 [place] 2020-10-22 2020-10-22 Travel 1.2.840.1 1.2.614.491 3825 3839 Univers 00:00:00 00:00:00 74430.1.1 350.1.13.10 ity of 3.104.2.[place] 4[place].3.698 [place] .3.285925 084.8 Medica l .8 [place] 2020-10-13 2020-10-13 [facility] [id number] Univers 08:45:00 08:45:00 GADIEL rodas [facility] 2020-10-06 2020-10-12 Telemedici Cadea, 1.2.840.1 [id number] Methodi 15:30:00 00:08:46 ne Ray [address]147.1.[address] 3.430.2.7 Hospit a .3.371483 l .8 2020-09-30 2020-09-30 Telephone Chidimasa, 1.2.840.0 [id number] Methodi 00:00:00 00:00:[address] 3.430.2.7 Hospit a .3.679955 l .8 2020-09-21 2020-09-21 Travel 1.2.840.1 1.2.024.379 [id number] Methodi 00:00:00 00:00:[address] 3.430.2.7 0.2.7.3.698 Ho spita .3.876122 084.8 l .8 2020-09-06 2020-09-06 [facility] 1.2.840.1 [id number] Methodi 17:42:30 23:59:[address] 3.430.2.7 Hospit a .3.720796 l .8 2020-09-06 2020-09-06 [facility], 1.2.840.1 [id number] Methodi 16:50:00 17:41:00 Encounter Ray [address]23.1.[address] 3.430.2.7 Hospit a .3.437769 l .8 2020-09-05 2020-09-05 [facility], 1.2.840.1 [id number] 2100 [id number] Methodi 09:17:00 19:45:00 Encounter Ray [address]38.1.[address] 3.430.2.7 Hospit a .3.790753 l .8 2020-09-05 2020-09-05 Surgery [facility], 1.2.840.1 [id number] Methodi 11:30:00 13:15:[address] 3.430.2.7 Hospit a .3.219937 l .8 2020-09-05 2020-09-05 Anesthesia [facility], 1.2.840.1 [id number] [id number] Methodi 11:27:00 12:20:00 Event Lynnettevalentinadarrellthi 70712.1.1 243 s t V. 3.430.2.7 Hospit a .3.287612 l .8 2020-09-05 2020-09-05 Travel 1.2.840.1 1.2.499.600 9806 [id number] Methodi 00:00:00 00:00:[address] 3.430.2.7 0.2.7.3.698 Ho spita .3.186876 084.8 l .8 2020-09-04 2020-09-04 Telephone Carol Ann, 1.2.840.1 [id number] Methodi 00:00:00 00:00:00 Sarai Lieberman 14635.1.1 762 s t 3.430.2.7 Hospit a .3.343922 l .8 2020-09-02 2020-09-02 Telephone Carol Ann, 1.2.840.8 [id number] Methodi 00:00:00 00:00:00 Sarai Lieberman 11872.1.1 344 s t 3.430.2.7 Hospit a .3.681779 l .8 2020-08-29 2020-08-30 Bedded [facility] [id number] [facility] 10:20:00 14:10:00 Outpatient r [address] 2020-08-29 2020-08-30 Outpatient [place], [facility] CAR [address] [facility] 05:20:00 09:10:00 [place] 2020-08-06 2020-08-06 Office [place], 1.2.840.6 [id number] Univers 08:03:23 09:17:49 Visit Santiago 38880.1.1 ity of 3.104.2.7 [place] .3.671258 Medica l .8 [place] 2020-08-06 2020-08-06 Outpatient R [facility] [id number] Univers 08:30:00 08:30:00 SANTIAGO itcharlie of [facility] 2020-07-14 2020-07-14 Outpatient R [facility], [facility] [id number] Univers 09:30:00 09:30:00 GADIEL ity o f [facility] 2020-07-14 2020-07-14 Travel 1.2.840.1 1.2.151.000 [id number] [id number] Univers 00:00:00 00:00:00 26409.1.1 350.1.13.10 ity of 3.104.2.[place].698 [place] 084.8 Medica l .8 [place] 2020-07-14 2020-07-14 Orders Doctor 1.2.840.9 [id number] Univers 00:00:00 00:00:00 Only Unassigned, 71188.1.1 ity of [place] 3.104.2.7 [place] .3.749085 Medica l .8 [place] 2020-06-16 2020-06-16 Outpatient R [facility], [facility] [id number] Univers 08:00:00 08:00:00 GADIEL barbosa o f [facility] 2020-06-06 2020-06-06 Telephone [place], 1.2.840.0 [id number] Univers 00:00:00 00:00:00 Santiago 36449.1.1 ity of 3.104.2.7 [place] .3.954443 Medica l .8 [place] 2020-06-04 2020-06-04 [place] Administrator Santiago Cardenas 1.2.840.1 [id number] Univers 09:31:58 09:40:12 Visit [facility] 25339.1.1 ity of 3.104.2.7 [place] .3.942284 Medica l .8 [place] 2020-06-04 2020-06-04 Office [facility], [facility] 1.2.280.616 0947 [id number] Univers 08:13:41 09:28:25 Visit Santiago [facility] 350.1.13.10 i ty of CLINICS 4.2.7.2.686 Richi bach 160.5595636 Medi pofririo 089 [place] 2020-06-04 2020-06-04 Outpatient R [facility] [id number] Univers 08:30:00 08:30:00 SANTIAGO barbosa of [facility] 2020-06-04 2020-06-04 Orders Doctor 1.2.840.4 [id number] Univers 00:00:00 00:00:00 Only Unassigned, 71406.1.1 ity of [place] 3.104.2.7 [place] .3.630539 Medica l .8 [place] 2020-05-19 2020-05-19 Telephone East, 1.2.840.8 [id number] Univers 00:00:00 00:00:00 Santiago 41575.1.1 ity of 3.104.2.7 [place] .3.767223 Medica l .8 Branch 2020-04-24 2020-04-24 Telephone East, 1.2.840.3 [id number] Univers 00:00:00 00:00:00 Santiago 35260.1.1 ity of 3.104.2.7 [place] .3.272333 Medica l .8 Branch 2020-04-14 2020-04-14 Outpatient R [place], [facility] [id number] Univers 09:00:00 09:00:00 SANTIAGO ity of [facility] 2020-04-14 2020-04-14 Telephone [place], 1.2.840.3 [id number] Univers 00:00:00 00:00:00 Santiago 11337.1.1 ity of 3.104.2.7 [place] .3.394593 Medica l .8 [place] 2020-03-31 2020-03-31 Outpatient R [facility], [facility] [id number] Univers 08:30:00 08:30:00 SANTIAGO ity of [facility] 2020-03-03 2020-03-03 Outpatient R SELF, [facility] [id number] Univers 08:00:00 08:00:00 GADIEL maciely o f [facility] 2020-03-03 2020-03-03 Outpatient R SELF, [facility] [id number] Univers 08:00:00 08:00:00 GADIEL ity o f [facility] 2020-03-03 2020-03-03 Travel 1.2.840.1 1.2.780.833 [id number] [id number] Univers 00:00:00 00:00:00 63833.1.1 350.1.13.10 ity of 3.104.2.[place].698 [place] .3.7894[place] 084.8 Medica l .8 [place] 2020-02-06 2020-02-06 Telephone [place], 1.2.840.7 [id number] [id number] Univers 00:00:00 00:00:00 [place] 30503.1.1 ity of 3.104.2.7 [place] .3.734415 Medica l .8 Branch 2020-01-26 2020-01-26 Emergency Caridad, 1.2.840.8 [id number] [id number] Univers 10:03:00 13:05:00 Cynise 69001.1.1 ity of 3.104.2.7 [place] .3.243672 Medica l .8 [place] 2020-01-26 2020-01-26 Travel 1.2.840.1 1.2.824.713 5268 0120 Univers 00:00:00 00:00:00 68626.1.1 350.1.13.10 ity of 3.104.2.[place]3.698 [place] .3.435[place] 084.8 Medica l .8 [place] 2020-01-25 2020-01-25 Outpatient R [facility]AST, [facility] [id number] Univers 08:30:00 08:30:00 SANTIAGO ity of [facility] 2020-01-25 2020-01-25 Telemedici [place], 1.2.840.9 [id number] Univers 07:36:49 08:06:49 ne Visit Santiago 44109.1.1 ity of 3.104.2.7 [place] .3.470075 Medica l .8 [place] 2020-01-16 2020-01-16 Outpatient R [facility] [id number] Univers 08:00:00 08:00:00 SANTIAGO ity of [facility] 2020-01-16 2020-01-16 Telephone East, 1.2.840.3 [id number] Univers 00:00:00 00:00:00 Santiago 04597.1.1 ity of 3.104.2.7 [place] .3.452311 Medica l .8 [place] 2020-01-14 2020-01-14 Outpatient R SELF, [facility] [id number] Univers 08:00:00 08:00:00 GADIEL vogel f [facility] 2019-12-31 2019-12-31 Outpatient R SELF, [facility] [id number] Univers 08:45:00 08:45:00 GADIEL rodas [facility] 2019-10-17 2019-10-17 Outpatient R [facility], [facility] [id number] Univers 08:30:00 08:30:00 SANTIAGO ity [facility] 2019-10-12 2019-10-12 Outpatient R EAST, [facility] [id number] Univers 13:00:00 13:00:00 SANTIAGO ity [facility] 2019-10-12 2019-10-12 Telemedici [place], 1.2.840.1 [id number] Univers 07:38:30 08:08:30 ne Visit Santiago 42256.1.1 ity of 3.104.2.7 [place] .3.323487 Medica l .8 [place] 2019-10-08 2019-10-08 Outpatient R SELF, [facility] [id number] Univers 10:15:00 10:15:00 GADIEL barbosa o f [facility] 2019-10-03 2019-10-03 Case Xiao, 1.2.840.7 [id number] Univers 00:00:00 00:00:00 Management Michael Corbin 77429.1.1 i ty of 3.104.2.7 [place] .3.384657 Medica l .8 [place] 2019-09-27 2019-09-27 Telephone East, 1.2.840.0 [id number] Univers 00:00:00 00:00:00 Santiago 86719.1.1 ity of 3.104.2.7 [place] .3.488572 Medica l .8 [place] 2019-09-04 2019-09-04 Refill [place], 1.2.840.7 [id number] Univers 00:00:00 00:00:00 Santiago 40644.1.1 ity of 3.104.2.7 [place] .3.595175 Medica l .8 [place] 2019-07-24 2019-07-24 Outpatient R [facility], [facility] [id number] Univers 08:30:00 08:30:00 SANTIAGO ity [facility] 2019-07-17 2019-07-17 Outpatient R [facility]AST, [facility] [id number] Univers 10:00:00 10:00:00 SANTIAGO ity [facility] 2019-06-15 2019-06-15 Telephone East, 1.2.840.2 [id number] Univers 00:00:00 00:00:00 Santiago 83500.1.1 ity of 3.104.2.7 [place] .3.822929 Medica l .8 [place] 2019-06-13 2019-06-13 Tele[facility] 1.2.840.4 [id number] Univers 00:00:00 00:00:00 Health 87423.1.1 [place] .3.701129 Medica l .8 Branch 2019-05-10 2019-05-10 Refill Ronald, 1.2.840.7 [id number] Univers 00:00:00 00:00:00 Santiago 95577.1.1 ity of 3.104.2.7 [place] .3.596291 Medica l .8 [place] 2019-05-09 2019-05-09 Refill Ronald, 1.2.840.1 [id number] Univers 00:00:00 00:00:00 Santiago 23645.1.1 ity of 3.104.2.7 [place] .3.558853 Medica l .8 [place] 2019-04-30 2019-04-30 Outpatient R SELF, [facility] [id number] Univers 10:15:00 10:33:05 GADIEL barbosa o f [facility] 2019-04-18 2019-04-18 [place] Administrator [place] Cardenas 1.2.840.1 [id number] Univers 10:00:39 10:44:31 Visit [facility] 85679.1.1 ity of 3.104.2.7 [place] .3.161798 Medica l .8 [place] 2019-04-18 2019-04-18 Outpatient R RONADL, [facility] [id number] Univers 10:00:00 10:44:31 SANTIAGO ity of [facility] 2019-04-18 2019-04-18 Office Ronald, 1.2.840.4 [id number] Univers 08:27:44 09:53:27 Visit Santiago 64227.1.1 ity of 3.104.2.7 [place] .3.910181 Medica l .8 [place] 2019-04-18 2019-04-18 Orders Doctor 1.2.840.9 [id number] Univers 00:00:00 00:00:00 Only Unassigned, 73398.1.1 ity of [place] 3.104.2.7 [place] .3.695878 Medica l .8 [place] 2019-04-11 2019-04-11 Refill East, 1.2.840.3 [id number] Univers 00:00:00 00:00:00 Santiago 66165.1.1 ity of 3.104.2.7 [place] .3.192264 Medica l .8 [place] 2019-04-09 2019-04-09 Refill [place], 1.2.840.7 [id number] Univers 00:00:00 00:00:00 Santiago 84919.1.1 ity of 3.104.2.7 [place] .3.121571 Medica l .8 [place] 2019-04-03 2019-04-03 Telephone [facility], [facility] 1.2.840.2 [id number] Univers 00:00:00 00:00:00 Health 82729.1.1 ity [place] .3.825726 Medica l .8 [place] 2019-03-27 2019-03-27 Telephone Self, 1.2.840.5 [id number] Univers 00:00:00 00:00:00 Gadiel 26111.1.1 ity of 3.104.2.7 [place] .3.958964 Medica l .8 [place] 2019-01-17 2019-01-17 Office East, 1.2.840.5 [id number] Univers 07:37:21 10:32:51 Visit Santiago 91150.1.1 ity of 3.104.2.7 [place] .3.839366 Medica l .8 [place] 2019-01-04 2019-01-12 Office Eveline Hansen 1.2.840.1 [id number] Univers 11:19:32 11:08:05 Visit Mariela 66851.1.1 ity of 3.104.2.7 [place] .3.575256 Medica l .8 Branch 2019-01-10 2019-01-10 Telephone Stanislav, 1.2.840.1 [id number] Univers 00:00:00 00:00:00 Eladio Inman 36859.1.1 ity of 3.104.2.7 [place] .3.853502 Medica l .8 [place] 2018-12-18 2018-12-18 Office Jimmyrafiq, 1.2.840.1 [id number] Univers 08:48:45 09:13:43 Visit Leyda 26409.1.1 it y of 3.104.2.7 [place] .3.731972 Medica l .8 Branch 2018-10-30 2018-10-30 Telephone East, 1.2.840.9 [id number] Univers 00:00:00 00:00:00 Santiago 56467.1.1 ity of 3.104.2.7 [place] .3.443061 Medica l .8 [place] 2018-10-23 2018-10-23 Orders Doctor 1.2.840.5 [id number] Univers 00:00:00 00:00:00 Only Unassigned, 53953.1.1 ity of [place] 3.104.2.7 [place] .3.525207 Medica l .8 [place] 2018-10-23 2018-10-23 Nurse Selvin, 1.2.840.9 [id number] Univers 00:00:00 00:00:00 Triage Stefanie 28655.1.1 ity of 3.104.2.7 [place] .3.362733 Medica l .8 [place] 2018-10-23 2018-10-23 Telephone Self, 1.2.840.0 [id number] Univers 00:00:00 00:00:00 Gadiel 13365.1.1 ity of 3.104.2.7 [place] .3.466128 Medica l .8 [place] 2018-10-20 2018-10-20 Telephone Self, 1.2.840.0 [id number] Univers 00:00:00 00:00:00 Gadiel 51472.1.1 ity of 3.104.2.7 [facility].044388 [facility] l .8 Branch Results Test Description Test Time Test Comments Results Result Comments Source BASIC METABOLIC PANEL (NA, K, CL, CO2, GLUCOSE, BUN, 2022-04 21:43:42 CREATININE, CA) Test Item Value Reference Range Interpretation Comme nts NA (test code = 5592650538) 142 mmol/L 135-145 K (test code = 5236567497) 3.5 mmol/L 3.5-5.0 CL (test code = 4381855817) 106 mmol/L 98-108 CO2 TOTAL (test code = 9389535910) 26 mmol/L 23-31 AGAP (test code = 9813926457) 2-16 BUN (test code = 6065262149) 29 mg/dL 7-23 H GLUCOSE (test code = 8843029983) 84 mg/dL 70-110 CREATININE (test code = 1.16 mg/dL 0.50-1.04 H 4573132379) CALCIUM (test code = 3627790436) 8.2 mg/dL 8.6-10.6 L eGFR (test code = 2149322084) mL/min/1.73m2 KYLE (test code = KYLE) Association [...] tests). Lab Interpretation (test code = Abnormal 98768-7) [facility] WITH [id number] 21:33:01 Test Item Value Reference Range Interpretation Comments [...] . HGB (test code = 10.7 g/dL 11.6-15.0 L 718-7) HCT (test code = 32.4 % 35.7-45.2 L 4544-3) MCV (test code = 95.9 fL 80.6-95.5 H 787-2) MCH (test code = 31.7 pg 25.9-32.8 785-6) MCHC (test code = 33.0 g/dL 31.6-35.1 786-4) RDW-SD (test code = 50.7 fL 39.0-49.9 H 42343-9) RDW-CV (test code = 14.6 % 12.0-15.5 788-0) PLT (test code = See_Comment L [Automated 777-3) message] The sy stem which generated this result transmitted reference range : 166 - 358 10*3/ ?L. The reference r abbey was not used to interpret this result as normal/abnormal . MPV (test code = 8.8 fL 9.5-12.9 L 13022-5) NRBC/100 WBC (test See_Comment [Automat ed code = 7764723513) message] The system which generated this result transmitted reference range : 0.0 - 10.0 /100 WBCs. The refer ence range was not u sed to interpret th is result as normal/abnormal . NRBC x10^3 (test code See_Comment [Auto mated = 0602834535) message] The s ystem which generated this result transmitted reference range : 10*3/?L. The reference range was not used to interpret this result as normal/abnormal . GRAN MAT (NEUT) % 70.9 % (test code = 770-8) IMM GRAN % (test code 0.50 % = 6573736860) LYMPH % (test code = 17.4 % 736-9) MONO % (test code = 9.0 % 5905-5) EOS % (test code = 1.7 % 713-8) BASO % (test code = 0.5 % 706-2) GRAN MAT x10^3(ANC) 4.60 10*3/uL 1.88-7.09 (test code = 4452348545) IMM GRAN x10^3 (test 0.03 10*3/uL 0.00-0.06 code = 1381817453) LYMPH x10^3 (test code 1.13 10*3/uL 1.32-3.29 L = 731-0) MONO x10^3 (test code 0.58 10*3/uL 0.33-0.92 = 742-7) EOS x10^3 (test code = 0.11 10*3/uL 0.03-0.39 711-2) BASO x10^3 (test code 0.03 10*3/uL 0.01-0.07 = 704-7) Lab Interpretation Abnormal (test code = 77179-7) [id number]:01:07 Test Item Value Reference Range Interpretation Comments Blood Culture-Aerobic No organisms No growth Previo us (test code = 52086-9) isolated prelim inary verified result was Culture In Progress on 02/11/2022 at 04 01 CDTPrevious preliminary verified result was No growth a t 24 hours on 02/12/2022 at 01 01 CDTPrevious preliminary verified result was No growth a t 48 hours on 02/13/2022 at 01 01 CDTPrevious preliminary verified result was No growth a t 72 hours on 02/14/2022 at 01 01 CDT Blood No organisms No growth Previous Culture-Anaerobic isolated preliminar y (test code = 91721-8) verifi ed result was Culture In Progress [...] CDT Lab Interpretation Normal (test code = 53314-5) [facility] CULTURE [id number] 06:01:07 Test Item Value Reference Range Interpretation Comments Blood Culture-Aerobic No organisms No growth Previo us (test code = 58155-5) isolated prelim inary verified result was Culture [...] Culture-Anaerobic isolated preliminar y (test code = 19273-7) verifi ed result was Culture In Progress [...] CDT Lab Interpretation Normal (test code = 62353-9) [facility] CULTURE [id number] 06:01:07 Test Item Value Reference Range Interpretation Comments Blood Culture-Aerobic No organisms No growth Previo us (test code = 30705-3) isolated prelim inary verified result was Culture [...] Culture-Anaerobic isolated preliminar y (test code = 63661-6) verifi ed result was Culture In Progress [...] CDT Lab Interpretation Normal (test code = 51363-9) [id number] 10:49:10 Test Item Value Reference Range Interpretation Comments NT-proBNP (test code 2660 pg/mL See_Comment H [Autom ated = 8066020440) message] The system which generated this result transmitted reference range : <=125. The reference range was not used to interpret this result as normal/abnormal . KYLE (test code = KYLE) Biotin has been reported to cause a negative bias, interpret results relative to patient's use of biotin. Lab Interpretation Abnormal (test code = 18067-1) [id number] 10:49:10 Test Item Value Reference Range Interpretation Comments NT-proBNP (test code 2660 pg/mL See_Comment H [Autom ated = 5700433526) message] The system which generated this result transmitted reference range : <=125. The reference range was not used to interpret this result as normal/abnormal . KYLE (test code = KYLE) Biotin has been reported to cause a negative bias, interpret results relative to patient's use of biotin. Lab Interpretation Abnormal (test code = 39697-2) [facility] METABOLIC PANEL (NA, K, CL, CO2, GLUCOSE, BUN, CREATININE, CA)2022-02-15 10:44:07 Test Item Value Reference Range Interpretation Comments NA (test code = 134 mmol/L 135-145 L 6833441245) K (test code = 3.2 mmol/L 3.5-5 L 7032851965) CL (test code = 98 mmol/L 98-108 2228533693) CO2 TOTAL (test code = 27 mmol/L 23-31 2107817310) AGAP (test code = 2-16 9380388893) BUN (test code = 19 mg/dL 7-23 2066757335) GLUCOSE (test code = 102 mg/dL 70-110 3521705202) CREATININE (test code = 0.95 mg/dL 0.5-1.04 2941668147) CALCIUM (test code = 8.5 mg/dL 8.6-10.6 L 5784730635) eGFR (test code = mL/min/1.73m2 1937037856) KYLE (test code = KYLE) Association of [...] tests). Lab Interpretation Abnormal (test code = 97436-4) [facility] Test Item Value Reference Range Interpretation Comments MAGNESIUM (test code = 9787630313) 1.8 mg/dL 1.7-2.4 Lab Interpretation (test code = Normal 10614-5) [facility]2022-09-26 10:44:07 Test Item Value Reference Range Interpretation Comments MAGNESIUM (test code = 9943087460) 1.8 mg/dL 1.7-2.4 Lab Interpretation (test code = Normal 25552-6) [facility] METABOLIC PANEL (NA, K, CL, CO2, GLUCOSE, BUN, CREATININE, CA)2022-02-15 10:44:07 Test Item Value Reference Range Interpretation Comments NA (test code = 134 mmol/L 135-145 L 1796653090) K (test code = 3.2 mmol/L 3.5-5.0 L 4607284562) CL (test code = 98 mmol/L 98-108 5536034683) CO2 TOTAL (test code = 27 mmol/L 23-31 1916490531) AGAP (test code = 2-16 5006709262) BUN (test code = 19 mg/dL 7-23 2439015905) GLUCOSE (test code = 102 mg/dL 70-110 9984349374) CREATININE (test code = 0.95 mg/dL 0.50-1.04 7969491296) CALCIUM (test code = 8.5 mg/dL 8.6-10.6 L 4232948466) eGFR (test code = mL/min/1.73m2 2500148678) KYLE (test code = KYLE) Association of [...] tests). Lab Interpretation Abnormal (test code = 08474-5) [facility] WITH [id number] 10:12:06 Test Item Value Reference Range Interpretation [...] RDW-SD (test code = 47.8 fL 39-49.9 26665-5) RDW-CV (test code = 15.2 % 12-15.5 788-0) PLT (test code = See_Comment L [Automated 777-3) message] The sy stem which generated this result transmitted reference range : 166 - 358 10*3/ ?L. The reference r abbey was not used to interpret this result as normal/abnormal . MPV (test code = 8.9 fL 9.5-12.9 L 12853-5) NRBC/100 WBC (test See_Comment [Automat ed code = 5080985711) message] The system which generated this result transmitted reference range : 0.0 - 10.0 /100 WBCs. The refer ence range was not u sed to interpret th is result as normal/abnormal . NRBC x10^3 (test code See_Comment [Auto mated = 4944636713) message] The s ystem which generated this result transmitted reference range : 10*3/?L. The reference range was not used to interpret this result as normal/abnormal . GRAN MAT (NEUT) % 65.9 % (test code = 770-8) IMM GRAN % (test code 0.30 % = 8694277099) LYMPH % (test code = 21.0 % 736-9) MONO % (test code = 10.1 % 5905-5) EOS % (test code = 2.4 % 713-8) BASO % (test code = 0.3 % 706-2) GRAN MAT x10^3(ANC) 2.49 10*3/uL 1.88-7.09 (test code = 1989444456) IMM GRAN x10^3 (test 0-0.06 code = 9815570426) LYMPH x10^3 (test code 0.79 10*3/uL 1.32-3.29 L = 731-0) MONO x10^3 (test code 0.38 10*3/uL 0.33-0.92 = 742-7) EOS x10^3 (test code = 0.09 10*3/uL 0.03-0.39 711-2) BASO x10^3 (test code 0.01-0.07 = 704-7) Lab Interpretation Abnormal (test code = 77114-7) [facility] WITH [id number] 10:12:06 Test Item Value Reference Range Interpretation [...] RDW-SD (test code = 47.8 fL 39.0-49.9 87622-1) RDW-CV (test code = 15.2 % 12.0-15.5 788-0) PLT (test code = See_Comment L [Automated 777-3) message] The sy stem which generated this result transmitted reference range : 166 - 358 10*3/ ?L. The reference r abbey was not used to interpret this result as normal/abnormal . MPV (test code = 8.9 fL 9.5-12.9 L 54753-1) NRBC/100 WBC (test See_Comment [Automat ed code = [id number]) message] The system which generated this result transmitted reference range : 0.0 - 10.0 /100 WBCs. The refer ence range was not u sed to interpret th is result as normal/abnormal . NRBC x10^3 (test code See_Comment [Auto mated = [id number]) message] The s ystem which generated this result transmitted reference range : 10*3/?L. The reference range was not used to interpret this result as normal/abnormal . GRAN MAT (NEUT) % 65.9 % (test code = 770-8) IMM GRAN % (test code 0.30 % = [id number]) LYMPH % (test code = 21.0 % 736-9) MONO % (test code = 10.1 % 5905-5) EOS % (test code = 2.4 % 713-8) BASO % (test code = 0.3 % 706-2) GRAN MAT x10^3(ANC) 2.49 10*3/uL 1.88-7.09 (test code = [id number]) IMM GRAN x10^3 (test 0.00-0.06 code = [id number]) LYMPH x10^3 (test code 0.79 10*3/uL 1.32-3.29 L = 731-0) MONO x10^3 (test code 0.38 10*3/uL 0.33-0.92 = 742-7) EOS x10^3 (test code = 0.09 10*3/uL 0.03-0.39 711-2) BASO x10^3 (test code 0.01-0.07 = 704-7) Lab Interpretation Abnormal (test code = 36916-3) [facility] WITH [id number] 11:18:28 Test Item Value Reference Range Interpretation [...] RDW-SD (test code = 49.5 fL 39-49.9 94404-7) RDW-CV (test code = 15.5 % 12-15.5 788-0) PLT (test code = See_Comment L [Automated 777-3) message] The sy stem which generated this result transmitted reference range : 166 - 358 10*3/ ?L. The reference r abbey was not used to interpret this result as normal/abnormal . MPV (test code = 11.4 fL 9.5-12.9 31522-0) IPF % (test code = 8.7 % 1.3-7.7 H Platelet count [id number]) measured by fluorescence method. NRBC/100 WBC (test See_Comment [Automat ed code = [id number]) message] The system which generated this result transmitted reference range : 0.0 - 10.0 /100 WBCs. The refer ence range was not u sed to interpret th is result as normal/abnormal . NRBC x10^3 (test code See_Comment [Auto mated = [id number]) message] The s ystem which generated this result transmitted reference range : 10*3/?L. The reference range was not used to interpret this result as normal/abnormal . GRAN MAT (NEUT) % 62.0 % (test code = 770-8) IMM GRAN % (test code 0.80 % = [id number]) LYMPH % (test code = 22.2 % 736-9) MONO % (test code = 9.6 % 5905-5) EOS % (test code = 5.1 % 713-8) BASO % (test code = 0.3 % 706-2) GRAN MAT x10^3(ANC) 2.21 10*3/uL 1.88-7.09 (test code = [id number]) IMM GRAN x10^3 (test 0.03 10*3/uL 0-0.06 code = 7549304001) LYMPH x10^3 (test code 0.79 10*3/uL 1.32-3.29 L = 731-0) MONO x10^3 (test code 0.34 10*3/uL 0.33-0.92 = 742-7) EOS x10^3 (test code = 0.18 10*3/uL 0.03-0.39 711-2) BASO x10^3 (test code 0.01-0.07 = 704-7) POLYCHROMASIA (test 2+ See_Comment [Automa arpit code = 34295-6) message] The system which generated this result [...] . Lab Interpretation Abnormal (test code = 29731-3) [facility] METABOLIC PANEL (NA, K, CL, CO2, GLUCOSE, BUN, CREATININE, CA)2022-02-13 10:39:07 Test Item Value Reference Range Interpretation Comments NA (test code = 136 mmol/L 135-145 4389202280) K (test code = 4.1 mmol/L 3.5-5 4520877274) CL (test code = 102 mmol/L 98-108 6868587636) CO2 TOTAL (test code = 27 mmol/L 23-31 9034952571) AGAP (test code = 2-16 6691204617) BUN (test code = 22 mg/dL 7-23 5431538487) GLUCOSE (test code = 94 mg/dL 70-110 4625099923) CREATININE (test code = 0.94 mg/dL 0.5-1.04 3527979843) CALCIUM (test code = 8.1 mg/dL 8.6-10.6 L 7002086407) eGFR (test code = mL/min/1.73m2 1099661480) KYLE (test code = KYLE) Association of [...] tests). Lab Interpretation Abnormal (test code = 62612-8) [facility] 01:50:10 Test Item Value Reference Range Interpretation Comments Height (test code = in 2444779888) Weight (test code = lbs 1344752497) Systolic BP (test code mmHg = 9801371749) Diastolic BP (test code mmHg = 6542975405) Heart Rate (test code = bpm 5288721349) BSA (test code = 1.85 m2 7277291280) IVS (test code = 1.22 cm 1050774364) Interventricular Septum 1.22 cm Diastolic Thickness by 2D (test code = 2256584) LVIDD (test code = 5.00 cm 2160990690) Left Ventricular End 117.9 mL Diastolic Volume by Teichholz Method (test code = 6611186) LVPWD (test code = 1.22 cm 9960658481) PW (test code = 1.22 cm 0.6-1.9 9785882088) EF(Teich) (test code = 74.60 % 3934367321) LVIDS (test code = 2.80 cm 7918490587) Left Ventricular End 29.9 mL Systolic Volume by Teichholz Method (test code = 6970029) FS (test code = 44 % 4920999921) EF - 2D (test code = 74.60 % 56906130) LVOT diameter (test 2.16 cm code = 2388575126) LVOT area (test code = 3.70 cm2 8638782630) Ao root diam (test code 3.40 cm = 6271150736) Aortic root (test code 3.4 cm = 9132840254) Ao root annulus (test 3.4 cm code = 6453775758) LA size (test code = 3.4 cm 0080886031) TR Peak Spencer (test code 330.0 cm/s = 3250828292) Triscuspid Valve mmHg Regurgitation Peak Gradient (test code = 1413360054) PV REGURGITATION PEAK mmHg GRADIENT (test code = 3656973586) PI dec slope (test code 137.20 cm/s2 = 6008786600) LAV(MOD-sp4) (test code 102.90 mL = 5294224896) MV Peak E Spencer (test 84.1 cm/s code = 7042693475) MV Peak A Spencer (test 40.1 cm/s code = 5706116744) E/A ratio (test code = ratio 1592357600) MV valve area p 1/2 3.70 cm2 method (test code = 9416536220) MV dec slope (test code 413.00 cm/s2 = 1235318448) MV P1/2t max spencer (test 83.70 cm/s code = 4087621127) MV Prop V (test code = 41.80 cm/s 2381624102) Tapse (test code = 1.83 cm 2918730698) LVOT stroke volume 96.90 cm3 (test code = 9988680124) LVOT peak spencer (test 125.5 cm/s code = 5621805224) LVOT mn grad (test code mmHg = 0995387252) AV LVOT peak gradient mmHg (test code = 3925335442) LVOT peak VTI (test 26.4 cm code = 0690520282) LV V1 mean (test code = 78.10 cm/s 7224513582) Aortic valve mean 103.7 cm/s velocity (test code = 4454749474) Ao peak spencer (test code 165.6 cm/s = 2297998865) Ao VTI (test code = 37.2 cm 1663445480) AV area by cont VTI 2.6 cm2 (test code = 3121350086) AV area peak spencer (test 2.8 cm2 code = 8689253338) Ao max PG (test code = 11.00 mm[Hg] 5409650840) AV peak gradient (test mmHg code = 6214062414) AV valve area (test 2.60 cm2 code = 9950155401) AV mean gradient (test mmHg code = 9332814804) LA Volume Index (BP) 55.2 mL/m2 (test code = 7276123167) LA volume (BP) (test 102.1 mL code = 4492586182) LAV(MOD-sp2) (test code 86.10 mL = 1979110588) A2C EF (test code = 61.20 % 3359337182) EF(sp2-el) (test code = 61.60 % 9595720655) SV(MOD-sp2) (test code 47.10 mL = 8373106135) LV Diastolic Volume 70.7 mL (BP) (test code = 7208074001) A4C EF (test code = 53.00 % 1761910432) EF(MOD-bp) (test code = 56.70 % 1460251483) EF(sp4-el) (test code = 53.90 % 6003386592) LV Systolic Volume (BP) 30.6 mL (test code = 1219962936) SV(MOD-bp) (test code = 40.10 mL 1283781349) SV(MOD-sp4) (test code 32.40 mL = 7044754580) SV(sp4-el) (test code = 33.10 mL 6992840077) EF (test code = 7000171712) Left Ventricular Stroke 40.1 mL Volume by 2-D Biplane-MOD (test code = 5408884) LV Diastolic Volume 38.2 mL/m2 Index (BP) (test code = 8254522338) LV Systolic Volume 16.5 mL/m2 Index (BP) (test code = 2608725899) Radiology Study observation (narrative) (test code = 99408-0) KYLE (test code = KYLE) ?Left?Ventricle: Left [...] 1.00The left ventricular wall motion is normal. [facility] [id number] 05:45:01 Test Item Value Reference Interpretation Comments Range TROPONIN I (test See_Comment [Automated code = 1866070971) message] The system which generated this result [...] biotin. Lab Interpretation Normal (test code = 26969-2) [facility]MINAL GTT-HWB1540-09-22 05:41:40 Test Item Value Reference Range Interpretation Comments NT-proBNP (test code 4250 pg/mL See_Comment H [Autom ated = 0128060370) message] The system which generated this result transmitted reference range : <=125. The reference range was not used to interpret this result as normal/abnormal . KYLE (test code = KYLE) Biotin has been reported to cause a negative bias, interpret results relative to patient's use of biotin. Lab Interpretation Abnormal (test code = 93581-6) [facility] THRM[facility] [id number] 05:35:21 Test Item Value Reference Range Interpretation Comments APTT Patient (test See_Comment [Automat ed code = 3173-2) message] The system which generated this result transmitted reference range : 23 - 38 Seconds . The reference range was not used to interpr et this result as normal/abnormal . KYLE (test code = KYLE) The [facility] patient population mean normal value for aPTT is 30 seconds. Lab Interpretation Normal (test code = 01416-0) [facility] [id number] 05:35:21 Test Item Value Reference Range Interpretation Comments APTT Patient (test See_Comment [Automat ed code = 3173-2) message] The system which generated this result transmitted reference range : 23 - 38 Seconds . The reference range was not used to interpr et this result as normal/abnormal . KYLE (test code = KYLE) The [facility] patient population mean normal value for aPTT is 30 seconds. Lab Interpretation Normal (test code = 18241-8) [facility] CenterPROTHROMBIN TIME / [id number] 05:33:21 Test Item Value Reference Range Interpretation Comments PROTIME PATIENT (test See_Comment [Auto mated message] code = 5964-2) The system [employer] generated this result transmitted ref erence range: 12.0 - 1 4.7 Seconds. The re ference range was not u sed to interpret this result as normal/abnor mal. INR (test code = 6301-6) Nor mal INR <1.1; Warfarin Therap eutic range 2.0 to 3. 0 or 2.5 to 3.5, dep ending upon the indica tions. Lab Interpretation (test Normal code = 48041-8) [facility] MET[facility]OLIC PANEL (54851)2022-02-11 05:33:21 Test Item Value Reference Range Interpretation Comments NA (test code = 137 mmol/L 135-145 1943013636) K (test code = 4.3 mmol/L 3.5-5 1442894166) CL (test code = 103 mmol/L 98-108 7975619108) CO2 TOTAL (test code = 25 mmol/L 23-31 1868849045) AGAP (test code = 2-16 6805388277) BUN (test code = 19 mg/dL 7-23 3564876936) GLUCOSE (test code = 120 mg/dL 70-110 H 4746904529) CREATININE (test code = 1.15 mg/dL 0.5-1.04 H 9948564326) TOTAL BILI (test code = 0.9 mg/dL 0.1-1.9 9062191887) CALCIUM (test code = 8.9 mg/dL 8.6-10.6 5522627560) T PROTEIN (test code = 6.6 g/dL 6.3-8.2 4304459444) ALBUMIN (test code = 4.0 g/dL 3.5-5 8544700289) ALK PHOS (test code = 73 U/L 34-122 6815299328) ALTv (test code = 18 U/L 5-35 1742-6) AST(SGOT) (test code = 31 U/L 13-40 6757261772) eGFR (test code = mL/min/1.73m2 5622268259) KYLE (test code = KYLE) Association of [...] tests). Lab Interpretation Abnormal (test code = 39416-5) [facility]. METABOLIC PANEL (81369)2022-02-11 05:33:21 Test Item Value Reference Range Interpretation Comments NA (test code = 137 mmol/L 135-145 6010203448) K (test code = 4.3 mmol/L 3.5-5.0 7983480113) CL (test code = 103 mmol/L 98-108 9839382089) CO2 TOTAL (test code = 25 mmol/L 23-31 6394592801) AGAP (test code = 2-16 8156994402) BUN (test code = 19 mg/dL 7-23 6038607309) GLUCOSE (test code = 120 mg/dL 70-110 H 3021036355) CREATININE (test code = 1.15 mg/dL 0.50-1.04 H 6199084416) TOTAL BILI (test code = 0.9 mg/dL 0.1-1.3 1346460255) CALCIUM (test code = 8.9 mg/dL 8.6-10.6 5996819583) T PROTEIN (test code = 6.6 g/dL 6.3-8.2 0943625436) ALBUMIN (test code = 4.0 g/dL 3.5-5.0 9871018918) ALK PHOS (test code = 73 U/L 34-122 6258293087) ALTv (test code = 18 U/L 5-35 1742-6) AST(SGOT) (test code = 31 U/L 13-40 6233276293) eGFR (test code = mL/min/1.73m2 8383824845) KYLE (test code = KYLE) Association of [...] tests). Lab Interpretation Abnormal (test code = 41251-6) [facility] CenterPROT[facility]BIN [facility] / [id number] 05:33:21 Test Item Value Reference Range Interpretation [...] tions. Lab Interpretation (test Normal code = 61583-6) [facility] WITH ITEJ0276-06-87 05:14:37 Test Item Value Reference Range Interpretation Comments WBC (test code = See_Comment [Automated 0890-2) message] The sy stem which generated this [...] RDW-SD (test code = 47.9 fL 39-49.9 09343-6) RDW-CV (test code = 14.9 % 12-15.5 788-0) PLT (test code = See_Comment L [Automated 777-3) message] The sy stem which generated this result transmitted reference range : 166 - 358 10*3/ ?L. The reference r abbey was not used to interpret this result as normal/abnormal . MPV (test code = 9.1 fL 9.5-12.9 L 68429-5) NRBC/100 WBC (test See_Comment [Automat ed code = 0591968305) message] The system which generated this result transmitted reference range : 0.0 - 10.0 /100 WBCs. The refer ence range was not u sed to interpret th is result as normal/abnormal . NRBC x10^3 (test code See_Comment [Auto mated = 4399144924) message] The s ystem which generated this result transmitted reference range : 10*3/?L. The reference range was not used to interpret this result as normal/abnormal . GRAN MAT (NEUT) % 78.5 % (test code = 770-8) IMM GRAN % (test code 0.20 % = 0497312190) LYMPH % (test code = 11.6 % 736-9) MONO % (test code = 8.4 % 5905-5) EOS % (test code = 1.1 % 713-8) BASO % (test code = 0.2 % 706-2) GRAN MAT x10^3(ANC) 3.45 10*3/uL 1.88-7.09 (test code = 2662778068) IMM GRAN x10^3 (test 0-0.06 code = 5657029258) LYMPH x10^3 (test code 0.51 10*3/uL 1.32-3.29 L = 731-0) MONO x10^3 (test code 0.37 10*3/uL 0.33-0.92 = 742-7) EOS x10^3 (test code = 0.05 10*3/uL 0.03-0.39 711-2) BASO x10^3 (test code 0.01-0.07 = 704-7) Lab Interpretation Abnormal (test code = 87397-6) [facility] Coronavirus 2018 Sbecfmr5008-43-62 18:08:00 Test Item Value Reference Range Interpretation [...] det ection of nucleic acids f rom ouxTAHD-QvV-7 v irus and diagnosis of SA RS-CoV-2 virusinfection. It is an Emergency Use Authorization ( EUA) testauthorized by the U.S. FDA. BASIC METABOLIC JOAIK9396-10-88 09:37:00 Test Item Value Reference Range Interpretation [...] = 9.0 mg/dL 8.0-10.5 N CA) PROTHROMBIN ORDH7288-06-37 09:32:00 Test Item Value Reference Range Interpretation [...] (to prevent recurrent infar ct). 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 : 1955 Age/S: 66/F [address] [place] [address] Unit #: [id number] Loc: [place] [address] Phys: Bahman ChopraP Acct: [id number] Dis Date: Status: ADM IN PHONE #: [phone] Exam Date: 06/17/2021 1320 FAX #: [phone] Reason: WATCHMAN EXAMS: CPT CODE: [id number] XR CHEST 1 V 70784 PROCEDURE INFORMATION: Exam: XR Chest Exam date [...] Chopra Technologist: RT Taylor(Marika) Trnscrd Date/Time/By: 06/17/2021 (1437) : By: IselaKWL Orig Print D/T: S: 06/17/2021 (9676) PAGE 1 Signed ReportCOVID 19 Asymptomatic IH [id number] 12:29:00 Test Item Value Reference Range Interpretation [...] high or waivedcomplexit y tests. BASIC METABOLIC TCZTQ7847-21-22 11:37:00 Test Item Value Reference Range Interpretation [...] code = 9.0 mg/dL 8.0-10.5 N CA) VDFBOBFVPO4194-19-95 11:37:00 Test Item Value Reference Range Interpretation Comments PREALBUMIN (test code = PREALB) 24.3 mg/dL 16.0-40.0 N PROTHROMBIN FAPS5724-04-47 11:03:00 Test Item Value Reference Range Interpretation [...] (to prevent recurrent infar ct). CBC W/AUTO MRIX3181-69-35 10:59:00 Test Item Value Reference Range Interpretation [...] 0.0-0.1 N NRBC#) - XR CHEST 2 W8854-63-85 00:00:00 [facility] 1955 Sex: F FAX: Carmenza Kelly [phone] [place]: St: PRE FAX: Mike Scales MD [phone] Name: LIO WATTS [facility] : 1955 Age/S: 66/F [address] [place] [address] Unit #: [id number] Loc: [place], [place] [address]Zill: Mike Lund MD Acct: [id number] Dis Date: Status: PRE [facility] PHONE #: [phone] Exam Date: 06/16/2021 1120 FAX #: [phone] Reason: PREOP EXAMS: CPT CODE: [id number] XR CHEST 2 V 31921 PROCEDURE INFORMATION: Exam: XR Chest Exam date [...] Technologist: Danielle Nix RT(R) Trnscrd Date/Time/By: 06/16/2021 (3753) : By: [email or web address] Orig Print D/T: S: 06/16/2021 (4890) PAGE 1 Signed ReportGastrointestinal pyffk6350-74-54 04:35:05 Test Item Value Reference Interpretation Comments [...] Rotavirus PCR (test Not Detected code = 0463508) Salmonella PCR (test Not Detected code = [...] Not Detected (test code = 7124) [facility] fmtkmri8823-71-91 19:30:47 Test Item Value Reference Range Interpretation Comments Case number (test [id number] code = 7853002) Surgical pathology See link below for PDF report (test code = Lab Report 2255) Result status (test This is Supplemental code = 7181916) Report for [id number] [facility]2021-04-09 16:31:00 Test Item Value Reference Range Interpretation Comments POC Activated Clotting Time (test code 153 s = POC Activated Clotting Time) [facility]JdmtggwZASWTUHDNQ9433-90-22 16:31:00 Test Item Value Reference Range Interpretation Comments POC Activated Clotting Time (test code 153 s = POC Activated Clotting Time) [facility] HospitalMqvmkmiFWCMWNOPPR2359-78-39 16:31:00 Test Item Value Reference Range Interpretation Comments POC Activated Clotting Time (test code 153 s = POC Activated Clotting Time) [facility] HospitalRuyfqgfUYXBEIWYCJ9974-68-94 16:31:00 Test Item Value Reference Range Interpretation Comments POC Activated Clotting Time (test code 153 s = POC Activated Clotting Time) [facility] HospitalDzjjdawEJDISUHMQK2295-46-69 16:31:00 Test Item Value Reference Range Interpretation Comments POC Activated Clotting Time (test code 153 s = POC Activated Clotting Time) [facility] HospitalGjhyhsyEBJCDGLKNU3709-11-89 16:31:00 Test Item Value Reference Range Interpretation Comments POC Activated Clotting Time (test code 153 s = POC Activated Clotting Time) [facility] HospitalQijxhjfYABMPOYTBS3913-28-14 16:31:00 Test Item Value Reference Range Interpretation Comments POC Activated Clotting Time (test code 153 s = POC Activated Clotting Time) [facility] HospitalPvzwretSTIPCEKIOD1986-04-46 14:37:00 Test Item Value Reference Range Interpretation Comments POC Activated Clotting Time (test code 454 s = POC Activated Clotting Time) [facility] HospitalPmgjrrfCXYRSXQGEQ4628-06-09 14:37:00 Test Item Value Reference Range Interpretation Comments POC Activated Clotting Time (test code 454 s = POC Activated Clotting Time) [facility] HospitalIfwfrcnBSPVXJEEOV3440-40-51 14:37:00 Test Item Value Reference Range Interpretation Comments POC Activated Clotting Time (test code 454 s = POC Activated Clotting Time) [facility] HospitalKsafjjwZLIHVDZTGN8928-23-89 14:37:00 Test Item Value Reference Range Interpretation Comments POC Activated Clotting Time (test code 454 s = POC Activated Clotting Time) [facility] HospitalJbdnlhzDMTJIXHHAT7488-14-51 14:37:00 Test Item Value Reference Range Interpretation Comments POC Activated Clotting Time (test code 454 s = POC Activated Clotting Time) [facility] HospitalWoplmxoLATHRWPOOZ7909-38-06 14:37:00 Test Item Value Reference Range Interpretation Comments POC Activated Clotting Time (test code 454 s = POC Activated Clotting Time) [facility] HospitalOnlwcqkEVBDIVKVQY1790-33-56 14:37:00 Test Item Value Reference Range Interpretation Comments POC Activated Clotting Time (test code 454 s = POC Activated Clotting Time) [facility] HospitalPrfowtcUMSSAXXMOG5872-64-01 14:13:00 Test Item Value Reference Range Interpretation Comments POC Activated Clotting Time (test code 354 s = POC Activated Clotting Time) [facility] HospitalLjxtkzlXKOLFFMHII2870-11-11 14:13:00 Test Item Value Reference Range Interpretation Comments POC Activated Clotting Time (test code 354 s = POC Activated Clotting Time) [facility] HospitalBavifcyUHHVOAQNYS5637-58-51 14:13:00 Test Item Value Reference Range Interpretation Comments POC Activated Clotting Time (test code 354 s = POC Activated Clotting Time) [facility] HospitalQtvhncuKUYJDPDKYR7288-81-34 14:13:00 Test Item Value Reference Range Interpretation Comments POC Activated Clotting Time (test code 354 s = POC Activated Clotting Time) [facility] HospitalJlrpieaYFNIWONKWV8781-42-87 14:13:00 Test Item Value Reference Range Interpretation Comments POC Activated Clotting Time (test code 354 s = POC Activated Clotting Time) [facility] HospitalLlxeowcEBADDRNUPZ7531-81-88 14:13:00 Test Item Value Reference Range Interpretation Comments POC Activated Clotting Time (test code 354 s = POC Activated Clotting Time) [facility] HospitalHfmqtjsGFONGFUEMB5722-06-09 14:13:00 Test Item Value Reference Range Interpretation Comments POC Activated Clotting Time (test code 354 s = POC Activated Clotting Time) [facility] QPITVEA5292-81-24 10:37:00Negative (08/29/20 5:37 AM) [facility] [place] IEVMM0610-41-78 10:37:62014Gqhuuyig HermannCHEM PANEL 2020-08-29 10:37:0028[facility] HermannCHEM AYRYY8183-09-47 10:37:001.01[facility] HermannCHEM YVMTQ0719-98-12 10:37:83510Vbxgdpuw HermannCHEM TYRHT7473-01-39 10:37:003.8[facility] HermannCHEM MRXTF5834-26-18 10:37:99615Clbuvjxr HermannCHEM QVCWF9259-99-42 10:37:0028[facility] HermannCHEM DVDWG8032-77-17 10:37:009.8 [facility] HermannCHEM XMLQR4342-08-18 10:37:0011.8[facility] HermannCHEM PANEL 2020-08-29 10:37:0059[facility] HermannCHEM CIIKG3644-78-91 10:37:002.9[facility] QwyllpwSCNZYQXJJQ5839-13-53 10:37:006.8[facility] BamshgjFUXJINIWDE2190-77-43 10:37:004.47[facility] SaixbfhLMOIHVRPKT0736-63-92 10:37:0010.6[facility] ODCBBSCUYR0499-45-42 10:37:0034.0[facility] AfusffsQITBYLUFOS6470-80-34 10:37:00 76.1[facility] HrglnsvHOSDHQNNUT9143-12-96 10:37:00 Test Item Value Reference Range Interpretation Comments MCH (test code = MCH) 23.8 pg 27.0-31.0 [facility] MezewwaGINWPOEWNN1079-69-71 10:37:0031.3[facility] HermannHEMATOLOGY 2020-08-29 10:37:0018.2[facility] OxnnjjdKTLNBGDLNS0082-80-99 10:37:09555Jrktholn KkpsiqvVGIFGBEUCI8551-22-44 10:37:007.5[facility] JgbbbljAOXQIDOJIV3414-89-88 10:37:00 Test Item Value Reference Range Interpretation Comments PT (test code = PT) 12.8 s 12.0-14.7 [facility] HjjcuxoRBZIAXHSSD9324-50-75 10:37:00 Test Item Value Reference Range Interpretation Comments INR (test code = INR) 0.97 1 0.85-1.17 [facility] VqugrujUFCITVILOK6939-52-18 10:37:00 Test Item Value Reference Range Interpretation Comments PTT (test code = PTT) 25.0 s 22.9-35.8 [facility] UdbseoeIOAGESRIGR8059-74-89 10:37:0070.5[facility] HermannHEMATOLOGY 2020-08-29 10:37:0018.8[facility] AkekpcuLWYJQKWTSM7158-45-70 10:37:009.5[facility] IgtblwjVTRZLYHIBU8512-51-78 10:37:000.9[facility] DjvbvmmSZELMNMCNA0796-47-01 10:37:000.3[facility] DmcjxqbPCRVGFFLFK1081-46-61 10:37:004.8[facility] YPUWSKCCKK0191-19-09 10:37:001.3[facility] ZslsgxlTWXKSEIBEJ0323-32-33 10:37:000.6 [facility] AqwawtwFQKAXNGORX2471-37-76 10:37:000.1[facility] HermannHEMATOLOGY 2020-08-29 10:37:001+ *ABN*(08/29/20 5:37 AM)[facility] XlwvggwWFXHEVAJLR1379-20-66 10:37:00Not Detected (08/29/20 5:37 AM)[facility] HermannBLOOD BANK RESULTS 2020-08-29 10:37:00Negative (08/29/20 5:37 AM)[facility] HermannCHEM XWXKX1340-36-85 10:37:49083Zwjxdifw HermannCHEM KBLIO9230-26-52 10:37:0028[facility] HermannCHEM SJWZR2732-78-43 10:37:001.01[facility] HermannCHEM BMEDC8916-61-15 10:37:17658 [facility] HermannCHEM FOUVX0914-15-98 10:37:003.8[facility] HermannCHEM PANEL 2020-08-29 10:37:15994Wktjzmds HermannCHEM SYTHO5472-02-15 10:37:0028[facility] HermannCHEM LRAUX2521-37-50 10:37:009.8[facility] HermannCHEM AVWYN3504-52-70 10:37:0011.8[facility] HermannCHEM XDLWN4833-38-22 10:37:0059[facility] HermannCHEM OJHEE8006-86-09 10:37:002.9[facility] BrfmvyxBIDDZZEDCS7138-84-93 10:37:006.8 [facility] QqqfnrrEEPBIFQQCN7640-68-37 10:37:004.47[facility] HermannHEMATOLOGY 2020-08-29 10:37:0010.6[facility] WqlvwmjMQARPHIPAV6420-85-07 10:37:0034.0[facility] MtsiooeAEJDFDGCCZ7748-80-50 10:37:0076.1[facility] WjjvgjkKFZWNHELCG7490-20-27 10:37:00 Test Item Value Reference Range Interpretation Comments MCH (test code = MCH) 23.8 pg 27.0-31.0 [facility] FxzylswZHJYHCBBKR9144-86-02 10:37:0031.3[facility] HermannHEMATOLOGY 2020-08-29 10:37:0018.2[facility] NgnokdvHYGTBEPXZO4790-39-78 10:37:10316Nimlmwup GdwwmnuMUPYBQRVHL6083-43-34 10:37:007.5[facility]orial YkfldvjLZMSHTVJAY6642-62-55 10:37:00 Test Item Value Reference Range Interpretation Comments PT (test code = PT) 12.8 s 12.0-14.7 [facility] DfdfamwCOPKYQXJYH3879-29-41 10:37:00 Test Item Value Reference Range Interpretation Comments INR (test code = INR) 0.97 1 0.85-1.17 [facility] DtxoitbVWYIDNJMXG9689-85-34 10:37:00 Test Item Value Reference Range Interpretation Comments PTT (test code = PTT) 25.0 s 22.9-35.8 [facility] JjwfpegJGORCMXFVE9570-28-78 10:37:0070.5[facility] 2020-08-29 10:37:0018.8[facility] GljppanKHKVUSLUGJ7644-89-93 10:37:009.5[facility] MmenswiNWKGKVHWMV5339-43-94 10:37:000.9[facility] TtrddmkXBVMRQILCV6237-31-89 10:37:000.3[facility] QvebadpWEVAISCAUH6308-97-93 10:37:004.8[facility] TEFOVUUNDR8736-96-92 10:37:001.3[facility] LzoidnwSEBOFOEZIW5796-48-68 10:37:000.6 [facility] HajycqjRWMMKGNIHI8174-06-43 10:37:000.1[facility]annHEMATOLOGY 2020-08-29 10:37:001+ *ABN*(08/29/20 5:37 AM)[facility] VqbmanoLHMDQYLQGG4289-75-71 10:37:00Not Detected (08/29/20 5:37 AM)[facility] RES[facility] 2020-08-29 10:37:00Negative (08/29/20 5:37 AM)[facility]annCHEM YYLFG3493-73-83 10:37:49508Nxeotyqz HermannCHEM PKCLF4439-69-36 10:37:0028[facility]annCHEM IFWLW4694-89-54 10:37:001.01[facility]annCHEM MWCDU1358-93-41 10:37:57576 [facility]annCHEM HXHEQ3874-84-69 10:37:003.8[facility]annCHEM PANEL 2020-08-29 10:37:78982Kjorgyvb HermannCHEM LMYYS1875-06-32 10:37:0028[facility]annCHEM YROWK8611-93-36 10:37:009.8[facility]annCHEM XJQWG4084-24-63 10:37:0011.8[facility]annCHEM WZKIR0404-10-12 10:37:0059[facility]annCHEM MWVMO3186-66-14 10:37:002.9[facility] ZtwfjhoZNJSLIYRMU1010-47-28 10:37:006.8 [facility] VanshfqUXNKRMJWWF4237-13-27 10:37:004.47[facility]annHEMATOLOGY 2020-08-29 10:37:0010.6[facility] XqkszedBUMLBYIOBK3506-81-30 10:37:0034.0[facility] NcfzxoeUKQFQZMKIV9084-62-80 10:37:0076.1[facility] LltzweuKJLNERBDEW3219-18-41 10:37:00 Test Item Value Reference Range Interpretation Comments MCH (test code = MCH) 23.8 pg 27.0-31.0 [facility] YsjaklrOYNBEBLEGE3579-99-93 10:37:0031.3[facility]annHEMATOLOGY 2020-08-29 10:37:0018.2[facility] HjkhkfeHIZEXCFHLS3892-80-86 10:37:44736Kycbovym LgrqpngHARHYOOSHE2637-96-24 10:37:007.5[facility] FgpyvxfOWQVDEBZXI2333-73-36 10:37:00 Test Item Value Reference Range Interpretation Comments PT (test code = PT) 12.8 s 12.0-14.7 [facility] EefrfpuKKUDQCEYNB1296-95-21 10:37:00 Test Item Value Reference Range Interpretation Comments INR (test code = INR) 0.97 1 0.85-1.17 [facility] BbjzadvPDMCKIQZYE4983-59-85 10:37:00 Test Item Value Reference Range Interpretation Comments PTT (test code = PTT) 25.0 s 22.9-35.8 [facility] XtwmefuXSGNSXJMYD2559-46-91 10:37:0070.5[facility]annHEMATOLOGY 2020-08-29 10:37:0018.8[facility] BpybxmvNMLLPYDKLV2076-41-77 10:37:009.5[facility] VehrhujLWLVQALHJL5706-36-10 10:37:000.9[facility] NxopqhaONLERTIRBW6900-23-80 10:37:000.3[facility] MrtwexnOAEVRDSCBB6434-68-36 10:37:004.8[facility] EHITXGPJWL1893-33-14 10:37:001.3[facility] OdqckbhUNYUHJSGPD5828-24-02 10:37:000.6 [facility] KndiljvFODEBWKMXI5666-88-00 10:37:000.1[facility]annHEMATOLOGY 2020-08-29 10:37:001+ *ABN*(08/29/20 5:37 AM)[facility] GeyzuezPDKULQIFBZ2166-42-44 10:37:00Not Detected (08/29/20 5:37 AM)[facility]annBLOOD BANK RESULTS 2020-08-29 10:37:00Negative (08/29/20 5:37 AM)[facility]annCHEM LZIEX9251-27-39 10:37:71135Lntucyuu HermannCHEM TZFWO9490-64-19 10:37:0028[facility]annCHEM BQNIG2918-54-73 10:37:001.01[facility]annCHEM VLBCH8488-47-06 10:37:14720 [facility]annCHE[facility] WLRLZ6139-95-01 10:37:003.8[facility]annCHEM PANEL 2020-08-29 10:37:87377Fgcngcai HermannCHEM IVKSJ1335-75-96 10:37:0028[facility]annCHEM XFQTN2690-95-74 10:37:009.8[facility]annCHEM IECKP9867-08-32 10:37:0011.8[facility]annCHEM VFDSU6352-77-82 10:37:0059[facility]annCHEM RUEDK1424-71-39 10:37:002.9[facility] XtqwxdcATDQTJWNUP5247-91-65 10:37:006.8 [facility] MkvjvkuTESLSGKAHI7884-29-00 10:37:004.47[facility]annHEMATOLOGY 2020-08-29 10:37:0010.6[facility] AnzdvqjIZPUYZYSOB6008-04-46 10:37:0034.0[facility] WiveplqSNQVAIUCYK6260-78-74 10:37:0076.1[facility] WbqswfoOTRTSILVFT8099-12-07 10:37:00 Test Item Value Reference Range Interpretation Comments MCH (test code = MCH) 23.8 pg 27.0-31.0 [facility] OjfddbdJIQNXMTLTH4053-77-86 10:37:0031.3[facility]annHEMATOLOGY 2020-08-29 10:37:0018.2[facility] QgvelepIKQUQYCKYH8231-93-58 10:37:36728[place] DglimwlDLSZWHSVTI9834-98-85 10:37:007.5[facility] CuvzpmyDIQBNNHXAE5778-96-32 10:37:00 Test Item Value Reference Range Interpretation Comments PT (test code = PT) 12.8 s 12.0-14.7 [facility] OnrlpumBJYJVYFIBL7308-83-87 10:37:00 Test Item Value Reference Range Interpretation Comments INR (test code = INR) 0.97 1 0.85-1.17 [facility] IeugfzmFOYXLIXCFZ7257-16-51 10:37:00 Test Item Value Reference Range Interpretation Comments PTT (test code = PTT) 25.0 s 22.9-35.8 [facility] EdwjfewMVKOVVIHFV7697-41-79 10:37:0070.5[facility]annHEMATOLOGY 2020-08-29 10:37:0018.8[facility] OjpccuzAICIHYZIIG8768-90-41 10:37:009.5[facility] DjsvoafLVXOYLTIIY2936-93-48 10:37:000.9[facility] SkjpfhgWSAMLSTUWZ0303-90-74 10:37:000.3[facility] TsewunjTWJEFDLQXA4815-99-86 10:37:004.8[facility] VELLYSBJWH4826-30-91 10:37:001.3[facility] ZduzhtuNNZDTYFWLS2559-38-74 10:37:000.6 [facility] MbkqjrmWJSSMKAVMK1601-98-75 10:37:000.1[facility]annHEMATOLOGY 2020-08-29 10:37:001+ *ABN*(08/29/20 5:37 AM)[facility] JvawytiSZRXQGTBKZ5010-91-77 10:37:00Not Detected (08/29/20 5:37 AM)[facility]annBLOOD BANK RESULTS 2020-08-29 10:37:00Negative (08/29/20 5:37 AM)[facility]annCHEM VALUQ1483-10-78 10:37:30194Mwhdotdo HermannCHEM ORTRX9377-97-48 10:37:0028[facility]annCHEM JVXTK8607-95-79 10:37:001.01[facility]annCHEM ZLTXG5289-18-19 10:37:25957 [facility]annCHEM GQGYD1450-70-59 10:37:003.8[facility] HermannCHEM PANEL 2020-08-29 10:37:73996Ahxvvinr HermannCHEM HHMBR5464-98-43 10:37:0028[facility]annCHEM DHLYH8961-80-69 10:37:009.8[facility] HermannCHEM ITPZL7205-27-29 10:37:0011.8[facility] HermannCHEM GFBJY8321-17-62 10:37:0059[facility] HermannCHEM AKACU2972-37-08 10:37:002.9[facility] PtxoopoSLJVOBGCPI0356-19-98 10:37:006.8 [facility] DiftumgXHBCVERPEP3344-38-69 10:37:004.47[facility] HermannHEMATOLOGY 2020-08-29 10:37:0010.6[facility] WllritjOJEVSMOTRQ5768-79-45 10:37:0034.0[facility] JbwfwqlPSHAXHQRSQ4815-94-47 10:37:0076.1[facility] RoytbmtUPOPKYIIBH3197-61-31 10:37:00 Test Item Value Reference Range Interpretation Comments MCH (test code = MCH) 23.8 pg 27.0-31.0 [facility] ChgcndeJEWTRFQFNZ0386-45-86 10:37:0031.3[facility] HermannHEMATOLOGY 2020-08-29 10:37:0018.2[facility] LwykssjPPRTKBETPO0739-81-54 10:37:91123Bodjghga FjugigiMKWGPYSAVR7700-68-48 10:37:007.5[facility] BnptcphGHVKLYXYUN2839-34-51 10:37:00 Test Item Value Reference Range Interpretation Comments PT (test code = PT) 12.8 s 12.0-14.7 [facility] OqbxpejYVZBJIPXKY7313-81-35 10:37:00 Test Item Value Reference Range Interpretation Comments INR (test code = INR) 0.97 1 0.85-1.17 [facility] EsafbgyPFHFESUCFL0230-38-25 10:37:00 Test Item Value Reference Range Interpretation Comments PTT (test code = PTT) 25.0 s 22.9-35.8 [facility] WlrxfdmOGGNAEEARL9084-76-75 10:37:0070.5[facility]annHEMATOLOGY 2020-08-29 10:37:0018.8[facility] RcmacrpDAFWLGNBYE8029-82-24 10:37:009.5[facility] MkqkdkfFXUQOBMXIP3571-33-49 10:37:000.9[facility] UeiqoybTWCZOMAJPZ6435-65-61 10:37:000.3[facility] SwtdzdmCHFGOMIZWA3711-94-12 10:37:004.8[facility] BMZGDETEJW1596-42-77 10:37:001.3[facility] DgdmmziRIAYAOREED1922-84-04 10:37:000.6 [facility] NvmhiegWCLUNWMQBT9981-65-24 10:37:000.1[facility] HermannHEMATOLOGY 2020-08-29 10:37:001+ *ABN*(08/29/20 5:37 AM)[facility] ZsrbmrbXYEFJYOLPV6215-61-49 10:37:00Not Detected (08/29/20 5:37 AM)[facility]annBLOOD BANK RESULTS 2020-08-29 10:37:00Negative (08/29/20 5:37 AM)[facility]annCHEM VRNHA0211-47-73 10:37:24845Eylhqxtn HermannCHEM XDWVM8465-18-52 10:37:0028[facility]annCHEM EIHSJ4780-74-28 10:37:001.01[facility] HermannCHEM SGAOG6764-25-34 10:37:35608 [facility]annCHEM CFWVB2510-47-79 10:37:003.8[facility] HermannCHEM PANEL 2020-08-29 10:37:57073Vvxcpquc HermannCHEM ELING4169-07-44 10:37:0028[facility] HermannCHEM MHCDH7037-54-38 10:37:009.8[facility] HermannCHEM MFUVX0078-63-06 10:37:0011.8[facility] HermannCHEM AKVGU0654-42-99 10:37:0059[facility]annCHEM WCRRL4473-72-11 10:37:002.9[facility] HdbxjsmWXFHUNQMHY8202-91-47 10:37:006.8 [facility] UtqbyrlDBAXUGDAXM6074-58-77 10:37:004.47[facility] HermannHEMATOLOGY 2020-08-29 10:37:0010.6[facility] MfburcfFOTKEWOEYZ6216-40-99 10:37:0034.0[facility] JodgcyaIOKPTZQUJZ0063-61-18 10:37:0076.1[facility] PixyrqhWUQTMBMYBK9987-10-07 10:37:00 Test Item Value Reference Range Interpretation Comments MCH (test code = MCH) 23.8 pg 27.0-31.0 [facility] BybiionBTCKVAKLJC2496-99-35 10:37:0031.3[facility] HermannHEMATOLOGY 2020-08-29 10:37:0018.2[facility] RltwyepLJMBGDYGQA0318-38-37 10:37:96270Huehlyti DgtgbgdIKZLZEPHVM4822-23-45 10:37:007.5[facility] RwoejpxKGAUOKMUVD7009-41-85 10:37:00 Test Item Value Reference Range Interpretation Comments PT (test code = PT) 12.8 s 12.0-14.7 [facility] IsybysnWKOHCLGYSU9970-33-31 10:37:00 Test Item Value Reference Range Interpretation Comments INR (test code = INR) 0.97 1 0.85-1.17 [facility] EhceavsHFPERFVIEA9143-93-35 10:37:00 Test Item Value Reference Range Interpretation Comments PTT (test code = PTT) 25.0 s 22.9-35.8 [facility] UljjakqDJDABEBLJD0270-39-18 10:37:0070.5[facility] HermannHEMATOLOGY 2020-08-29 10:37:0018.8[facility] VdnfkdrCXBNMGYMXP0631-86-93 10:37:009.5[facility] HljxmsiGVCZNIBAKU4477-48-02 10:37:000.9[facility] ZhgdxhxOHPBXNOCPQ9885-30-73 10:37:000.3[facility] IymdsxxOGXSIHCVQU1733-79-94 10:37:004.8[facility] LCPFYLYRPD9817-91-60 10:37:001.3[facility] DxsmcgoYXNYTOFWHR6959-90-96 10:37:000.6 [facility] CnpxxloRRGVYNCLRI3981-31-64 10:37:000.1[facility]annHEMATOLOGY 2020-08-29 10:37:001+ *ABN*(08/29/20 5:37 AM)[facility] MpeenyhEZDJBNPXYY5354-07-76 10:37:00Not Detected (08/29/20 5:37 AM)[facility] HermannBLOOD BANK RESULTS 2020-08-29 10:37:00Negative (08/29/20 5:37 AM)[facility]annCHEM NVTQH3152-46-59 10:37:17850Mjsrkxxy HermannCHEM MUXXN8264-10-36 10:37:0028[facility]annCHEM RTOOI9458-20-59 10:37:001.01[facility] HermannCHEM FROOH6439-62-61 10:37:25657 [facility]annCHEM UJOCA6495-30-28 10:37:003.8[facility] HermannCHEM PANEL 2020-08-29 10:37:42338Vyyqjhmq HermannCHEM ABBIH0554-06-59 10:37:0028[facility]annCHEM ZWABD3530-15-26 10:37:009.8[facility] HermannCHEM QYACH5744-36-01 10:37:0011.8[facility] HermannCHEM YDCAZ1512-88-73 10:37:0059[facility]annCHEM AXZKG8942-11-43 10:37:002.9[facility] UpkqjbgTVYUMKVSSA4522-06-73 10:37:006.8 [facility] EhbxauwIOGHDCUMQK4207-67-67 10:37:004.47[facility]annHEMATOLOGY 2020-08-29 10:37:0010.6[facility] IshswxjONFBVJPOZD4316-40-30 10:37:0034.0[facility] IagxmqlTYZURWPXIV7182-90-97 10:37:0076.1[facility] QsrirejQJRVNHOZVS7960-63-30 10:37:00 Test Item Value Reference Range Interpretation Comments MCH (test code = MCH) 23.8 pg 27.0-31.0 [facility] AeyimifHCHKXXUQAP8526-87-73 10:37:0031.3[facility] HermannHEMATOLOGY 2020-08-29 10:37:0018.2[facility] DasqekjCLMETQSYHH9320-10-71 10:37:03661Yrfhdgot LeejiayZVCEXKAPVE6450-66-03 10:37:007.5[facility] MmxsqvlBJOQWMCALA2137-40-69 10:37:00 Test Item Value Reference Range Interpretation Comments PT (test code = PT) 12.8 s 12.0-14.7 [facility] DivqzpkQFNJNPEZOE9939-97-58 10:37:00 Test Item Value Reference Range Interpretation Comments INR (test code = INR) 0.97 1 0.85-1.17 [facility] TnewygxXLQLIMPTST9946-37-02 10:37:00 Test Item Value Reference Range Interpretation Comments PTT (test code = PTT) 25.0 s 22.9-35.8 [facility] NhtlvbuFUBSYYFGXD4564-45-93 10:37:0070.5[facility] HermannHEMATOLOGY 2020-08-29 10:37:0018.8[facility] RlfegvmRAJDUXNVKI0987-41-99 10:37:009.5[facility] JtlppfmYDCJUEEBWL7730-69-45 10:37:000.9[facility] RldixvjIKUMRHBIKE0187-14-55 10:37:000.3[facility] CrvorbdGXEKRXWOAY3286-31-53 10:37:004.8[facility] IJRGTTISNR1154-73-15 10:37:001.3[facility] YqjkezzMQQDZKVOXQ3306-60-42 10:37:000.6 [facility] EipnashBRDSTOLWJP4609-96-92 10:37:000.1[facility]annHEMATOLOGY 2020-08-29 10:37:001+ *ABN*(08/29/20 5:37 AM)[facility] HpwcmghOBBORQYWTZ9506-60-66 10:37:00Not Detected (08/29/20 5:37 AM)[facility], [facility], TV,PCR, IN CPXNZ8350-65-92 15:38:00 Test Item Value Reference Range Interpretation Comments FT (test code = CHTR) Not detected (qualifier Not Detected N value) FT (test code = Not detected (qualifier Not Detected N NGONO) value) FT (test code = TRVG) Not detected (qualifier Not Detected N value) [facility] BYBOSRUCJFA1293-65-75 10:57:00 Test Item Value Reference Range Interpretation Comments Color (test code = UCOLR) Dk. Yellow Clarity (test code = UCLAR) Hazy Glucose (test code = UGLUC) NEGATIVE NEGATIVE N Bilirubin (test code = UBILI) NEGATIVE NEGATIVE N Ketones (test code = UKET) NEGATIVE NEGATIVE N Specific [place] (test code = 1.025 1.005-1.030 A USPGR) [...] = None Seen None Seen N URCRYS) [facility]"
--- NOTE | 2022-04-23 21:06 | ER ---
Nurse's Notes [facility] Name: Marjan Kolb Age: 67 yrs Sex: Female : 1955 Arrival Date: 04/23/2022 Time: 17:49 Bed 16 Private MD: Lele Rahman H Diagnosis: Cellulitis of right upper limb Presentation: 04/23 18:31 Chief complaint: Patient states: She fell 2 days ago and was seen in this ED for an arm kb3 injury. Pt present with several steri-strips to right FA with scabbed wound. Pt reports she believes the wounds are infected. Coronavirus screen: Vaccine status: Patient reports receiving the 2nd dose of the covid vaccine. Ebola Screen: Patient negative for fever greater than or equal to 101.5 degrees Fahrenheit, and additional compatible Ebola Virus Disease symptoms Patient denies exposure to infectious person. Patient denies travel to an Ebola-affected area in the 21 days before illness onset. Initial Sepsis Screen: Does the patient meet any 2 criteria? No. Patient's initial sepsis screen is negative. Does the patient have a suspected source of infection? No. Patient's initial sepsis screen is negative. Risk Assessment: Do you want to hurt yourself or someone else? Patient reports no desire to harm self or others. Onset of symptoms was April 22, 2022. 18:31 Method Of Arrival: Ambulatory kb3 18:31 Acuity: BLAYNE 4 kb3 Triage Assessment: 18:33 General: Appears in no apparent distress. Behavior is calm, cooperative. Pain: kb3 Complains of pain in dorsal aspect of right forearm Pain does not radiate. Pain currently is 10 out of 10 on a pain scale. Historical: - Allergies: 18:33 Bactrim DS; kb3 18:33 butorphanol tartrate; kb3 18:33 Fentanyl; kb3 18:33 Reglan; kb3 18:33 Stadol; kb3 18:33 sulfamethoxazole (bulk); kb3 18:33 TRIMETHOPRIM; kb3 - PMHx: 18:33 Anxiety; Atrial Fib; Bipolar disorder; Chronic pain; COPD; esophageal varices; kb3 Hepatitis; HIV; Hypertension; Migraines; Panic Attacks; - PSHx: 18:33 Appendectomy; Bilateral shoulder repair; Cholecystectomy; hernia repair; R wrist SX; kb3 - Immunization history:: Adult Immunizations up to date, Client reports receiving the 2nd dose of the Covid vaccine, Last tetanus immunization: up to date. - Social history:: Smoking status: Patient denies any tobacco usage or history of. Screenin:26 Abuse screen: Denies threats or abuse. Nutritional screening: No deficits noted. ke1 Tuberculosis screening: No symptoms or risk factors identified. Fall Risk Fall in past 12 months (25 points). No secondary diagnosis (0 pts). No IV (0 pts). Ambulatory Aid- None/Bed Rest/Nurse Assist (0 pts). Gait- Normal/Bed Rest/Wheelchair (0 pts) Mental Status- Oriented to own ability (0 pts). Total Hauser Fall Scale indicates Low Risk Score (25-44 pts). Fall prevention measures have been instituted. Side Rails Up X 2 Placed close to Nursing Station Frequent Obs/Assesments occuring. Assessment: 21:12 Pain: Complains of pain in right hand and right arm Pain does not radiate. Pain ke1 currently is 7 out of 10 on a pain scale. at worst was 10 out of 10 on a pain scale. level that patient reports is acceptable is 5 out of 10 on a pain scale. 21:26 Reassessment:. ke1 21:42 Reassessment: Discharge pending volar splint. ke1 22:31 Reassessment: Patient states feeling better. Patient states symptoms have improved. ke1 Vital Signs: 18:31 BP 175 / 84; Pulse 60; Resp 20; Temp 98.1; Pulse Ox 100% ; Weight 79.83 kg; Height 5 kb3 ft. 4 in. (162.56 cm); Pain 10/10; 21:43 Pain 2/10; ke1 21:43 Pain 2/10; ke1 22:31 BP 178 / 78; Pulse 62; Resp 17; Temp 98.1(O); Pulse Ox 100% on R/A; Pain 1/10; ke1 18:31 Body Mass Index 30.21 (79.83 kg, 162.56 cm) kb3 ED Course: 17:49 Patient arrived in ED. mr 17:49 Lele Rahman DO is Private Physician. mr 17:54 Justus Neil PA is PHCP. cp 17:54 Ramon Baker MD is Attending Physician. cp 18:33 Triage completed. kb3 18:33 Arm band placed on left wrist. kb3 20:36 Jose Shah DO is Attending Physician. cp 20:53 Eli Bran, ASHLEY is Primary Nurse. ke1 21:27 Bed in low position. Call light in reach. Side rails up X 1. Side rails up X2. ke1 22:10 Orthoglass splint: Volar splint applied on right arm. ds4 22:33 No provider procedures requiring assistance completed. Patient did not have IV access ke1 during this emergency room visit. Administered Medications: 21:13 Drug: HYDROcodone-acetaminophen 10 mg-325 mg 1 tabs Route: PO; ke1 21:43 Follow up: Pain 2/10 Adult ke1 21:13 Drug: Ibuprofen 800 mg Route: PO; ke1 21:43 Follow up: Pain 2/10 Adult ke1 21:13 Drug: Doxycycline 100 mg Route: PO; ke1 22:33 Follow up: Response: No adverse reaction ke1 Medication: 22:34 VIS not applicable for this client. ke1 Outcome: 21:05 Discharge ordered by . cp 22:34 Discharged to home via wheelchair. ke1 22:34 Condition: good 22:34 Discharge instructions given to patient. 22:34 Patient left the ED. ke1 Signatures: Jessie Hill Devante Cashovan ds4 Justus Neil PA PA cp Eli Bran, RN RN ke1 Ava Mabry RN RN kb3
--- NOTE | 2022-04-23 21:06 | EDPHYS ---
Physician Documentation [facility] Name: Marjan Kolb Age: 67 yrs Sex: Female : 1955 Arrival Date: 04/23/2022 Time: 17:49 Bed 16 Private MD: Lele Rahman H ED Physician Jose Shah HPI: 04/23 20:45 This 67 yrs old Female presents to ER via Ambulatory with complaints of Fall Injury, cp Arm Injury. 20:45 The patient or guardian complains of swelling, tenderness, erythema. The complaints cp affect the right hand and right forearm. Context: reported fall recently with skin tears. 20:45 Treatment prior to arrival includes: no previous treatment. cp 20:45 Associated signs and symptoms: Pertinent positives: erythema, warmth, of the right cp forearm and right hand, Pertinent negatives: decreased range of motion, fever. 20:45 Patient is a 67 y/o female well known to this Ed who presents with concern for infected cp wounds to right forearm and right hand. Patient denies re-injury and fell 2 days ago and was seen and evaluated after fall in this ED. Historical: - Allergies: 18:33 Bactrim DS; kb3 18:33 butorphanol tartrate; kb3 18:33 Fentanyl; kb3 18:33 Reglan; kb3 18:33 Stadol; kb3 18:33 sulfamethoxazole (bulk); kb3 18:33 TRIMETHOPRIM; kb3 - PMHx: 18:33 Anxiety; Atrial Fib; Bipolar disorder; Chronic pain; COPD; esophageal varices; kb3 Hepatitis; HIV; Hypertension; Migraines; Panic Attacks; - PSHx: 18:33 Appendectomy; Bilateral shoulder repair; Cholecystectomy; hernia repair; R wrist SX; kb3 - Immunization history:: Adult Immunizations up to date, Client reports receiving the 2nd dose of the Covid vaccine, Last tetanus immunization: up to date. - Social history:: Smoking status: Patient denies any tobacco usage or history of. ROS: 20:50 Constitutional: Negative for body aches, chills, fever, poor PO intake. cp 20:50 Eyes: Negative for injury, pain, redness, and discharge. cp 20:50 ENT: Negative for drainage from ear(s), ear pain, sore throat, difficulty swallowing, difficulty handling secretions. 20:50 Cardiovascular: Negative for chest pain, palpitations. 20:50 Respiratory: Negative for cough, shortness of breath, wheezing. 20:50 Abdomen/GI: Negative for abdominal pain, nausea, vomiting, and diarrhea. 20:50 Skin: Positive for cellulitis, of the right forearm and right hand. 20:50 Neuro: Negative for altered mental status, headache, weakness. 20:50 All other systems are negative. Exam: 20:55 Constitutional: The patient appears in no acute distress, alert, awake, cp non-diaphoretic, non-toxic, well developed, well nourished. 20:55 Head/Face: Normocephalic, atraumatic. cp 20:55 Eyes: Periorbital structures: appear normal, Conjunctiva: normal, no exudate, no injection, Sclera: no appreciated abnormality, Lids and lashes: appear normal, bilaterally. 20:55 ENT: External ear(s): are unremarkable, Nose: is normal, Mouth: Lips: moist, Oral mucosa: moist, Posterior pharynx: Airway: normal. 20:55 Chest/axilla: Inspection: normal. 20:55 Cardiovascular: Rate: normal. 20:55 Respiratory: the patient does not display signs of respiratory distress, Respirations: normal, no use of accessory muscles, no retractions, labored breathing, is not present. 20:55 Musculoskeletal/extremity: Extremities: noted in the dorsal aspect of right forearm and dorsum of right hand: multiple superficial lacerations with steri strips in place, mild erythema and swelling, no drainage and/or active bleeding from wounds. Vital Signs: 18:31 BP 175 / 84; Pulse 60; Resp 20; Temp 98.1; Pulse Ox 100% ; Weight 79.83 kg; Height 5 kb3 ft. 4 in. (162.56 cm); Pain 10/10; 21:43 Pain 2/10; ke1 21:43 Pain 2/10; ke1 22:31 BP 178 / 78; Pulse 62; Resp 17; Temp 98.1(O); Pulse Ox 100% on R/A; Pain 1/10; ke1 18:31 Body Mass Index 30.21 (79.83 kg, 162.56 cm) kb3 MDM: 18:39 Patient medically screened. cp 20:00 Differential diagnosis: abscess, cellulitis. cp 21:05 Data reviewed: vital signs, nurses notes. cp 21:05 Counseling: I had a detailed discussion with the patient and/or guardian regarding: the cp historical points, exam findings, and any diagnostic results supporting the discharge/admit diagnosis, to return to the emergency department if symptoms worsen or persist or if there are any questions or concerns that arise at home. 21:05 ED course: VSS. Patient appears non-toxic, afebrile. Will treat with oral antibiotic cp and discharge to home for continued monitoring. 04/23 20:54 Order name: Dressing - Wound; Complete Time: 21:13 cp 04/23 20:54 Order name: Splint - Volar Wrist Splint; Complete Time: 22:08 cp Administered Medications: 21:13 Drug: HYDROcodone-acetaminophen 10 mg-325 mg 1 tabs Route: PO; ke1 21:43 Follow up: Pain 2/10 Adult ke1 21:13 Drug: Ibuprofen 800 mg Route: PO; ke1 21:43 Follow up: Pain 2/10 Adult ke1 21:13 Drug: Doxycycline 100 mg Route: PO; ke1 22:33 Follow up: Response: No adverse reaction ke1 Disposition: 04/24 02:29 Co-signature as Attending Physician, Jose Shah DO I was immediately available onsite ms3 in the emergency department for consultation in the care of the patient. Disposition Summary: 04/23/22 21:05 Discharge Ordered Location: Home cp Problem: new cp Symptoms: have improved cp Condition: Stable cp Diagnosis - Cellulitis of right upper limb cp Followup: cp - With: Private Physician - When: 2 - 3 days - Reason: Recheck today's complaints Discharge Instructions: - Discharge Summary Sheet cp - Cellulitis, Adult cp Forms: - Medication Reconciliation Form cp - Thank You Letter cp - Antibiotic Education cp - Prescription Opioid Use cp Prescriptions: - Doxycycline Hyclate 100 mg Oral Tablet - take 1 tablet by ORAL route every 12 hours; 20 tablet; Refills: 0, Product cp Selection Permitted - Diclofenac Sodium 75 mg Oral Tablet Sustained Release - take 1 tablet by ORAL route 2 times per day; 30 tablet; Refills: 0, Product cp Selection Permitted Signatures: Justus Neil PA PA cp Sims, Marcus, DO DO ms3 Eli Bran RN RN ke1 Raghavendra, Ava, RN RN kb3
[2022-04-23] MEDS ORDERED: IBUPROFEN 400 MG TAB ONE (21:10)
[2022-04-23] MEDS ORDERED: DOXYCYCLINE 100 MG CAP PO ONE (21:10)
[2022-04-23] MEDS ORDERED: HYDROCODONE/APAP 10/325 TAB ONE (21:11)
[2022-04-23 22:38] VITALS: TEMP 98.1; O2SAT 100
[2022-04-23 22:41] VITALS: BP 178/78
== END 2022-04-23 22:34 | disposition home or self-care (01) ==
LOC: ER 17:45
DX: L03.113 Cellulitis of right upper limb (principal); I10 Essential (primary) hypertension; Z21 Asymptomatic human immunodeficiency virus [HIV] infection status; Z88.1 Allergy status to other antibiotic agents; Z88.2 Allergy status to sulfonamides; Z88.5 Allergy status to narcotic agent; Z88.8 Allergy status to other drugs, medicaments and biological substances
CPT/HCPCS: 99283

== ENCOUNTER 2022-04-24 13:37 | Emergency (ER) | payer OTHER ==
--- OUTSIDE RECORDS SUMMARY | 2022-04-24 13:53 | XMS REPORT | Continuity of Care Document ---
:1955 Author Organization [facility] t Address [address] [place] [address] Care Team Providers Name Role Phone Urmila Rahman Primary Care Physician ELAN LIRA Attending Clinician Unavailable BEVERLY LAYTON Attending Clinician Unavailable SANTIAGO CARDENAS Attending Clinician Unavailable PAULETTE GRAY S Attending Clinician Unavailable Paulette Galvan S Attending Clinician UNKNOWN, ATTENDING Attending Clinician Unavailable Robbi Bal Attending Clinician Santiago Sanchez Attending Clinician [facility] Attending Clinician Unavailable Isaias Whiteside RN Attending Clinician Unavailable TOMY MARIE Attending Clinician Unavailable Reilly Means MD Attending Clinician Ofe Shields MD Attending Clinician Tomy Marie MD Attending Clinician Doctor Unassigned, [place] Attending Clinician Unavailable Bill COLES Attending Clinician Unavailable Bill Rose Attending Clinician CHARITY MCALLISTER Attending Clinician Unavailable Charity Mcallister MD Attending Clinician GADIEL KOEHLER Attending Clinician Unavailable Mike Lund Attending Clinician Unavailable NIKOLAI REEVES Attending Clinician Unavailable Eliseo Arce MD Attending Clinician Carol Ann IZQUIERDO, Sarai Lieberman Attending Clinician [phone] Ashly Pelletier MA Attending Clinician Unavailable Dagoberto Bass MD Attending Clinician [place] Evangelista Attending Clinician Lab, [facility] Pob I Attending Clinician Unavailable Monica Rodas MA Attending Clinician Unavailable Agustina Ortiz MA Attending Clinician Unavailable Rody Maguire RN Attending Clinician Unavailable Kirit Flood MD, V. Attending Clinician HEMATPOBEVERLY [place] Attending Clinician Unavailable Gloria Hinojosa Attending Clinician Micheal Hagen RN Attending Clinician Unavailable Team, [facility] Attending Clinician UnavailDO PORSHA Newell Attending Clinician Unavailable Gadiel Koehler MD Attending Clinician Tyrone JENKINS, Eveline Sierra Attending Clinician Stanislav RAMIREZ, Eladio Inman Attending Clinician Unavailable Leyda Willis Attending Clinician [phone] Selvin RAMIREZ, Stefanie Attending Clinician Unavailable TOMY MARIE Admitting Clinician Unavailable Frank JENKINS, Tomy Admitting Clinician Bill COLES Admitting Clinician Unavailable RahmanLele bird Kristen Admitting Clinician Unavailable Mike Lund Admitting Clinician Unavailable ELISEO ARCE Admitting Clinician Unavailable DO PORSHA STREETER Admitting Clinician Unavailable Payers Payer Name Policy Type Policy Number Effective Date Expiration Date S gabino [facility] [employer] [facility] [id number] 2012 STAR PLUS OON 00:00:00 [facility] [id number] 2019 DUAL COMPLETE HMO 00:00:00 [facility] [id number] 2019 PLUS 00:00:00 MEDICAID [facility] [id number] 2020 00:00:00 [employer] [id number] 2019 [facility]ALTH [facility] 00:00:00 [employer] MEDICARE ADV [id number] 2019 2019 00:00:00 00:00:00 Problems Condition Condition Condition Status Onset Resolution Last Treating Co mments Source Name Details Category Date Date Treatment Clinician Date Dyspnea, Dyspnea, Disease Active Unive rs unspecifie unspecifie 02-11 it y of d type d type 00:00: [place] [address] Medical Branch Gastropare Gastropare Disease Active Overview : Methodi sis sis 4-[address] 00:00: [facility] 00 note l might be different from the original. Added automatic ally from request for surgery [id number] Dysphagia Dysphagia Disease Active Overview: Methodi 4-[address] 00:00: [facility] 00 note l might be different from the original. 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 codeine DA Active SV N/V HCA [...] Date Stop Date Source Natural father Diabetes [facility] Natural father Other - see comments [facility] Natural father [facility] Natural father Hy[facility] Natural mother Caodaism [facility] Social History Social Habit Start Date Stop Date Quantity Comments Source History SDOH Caodaism Alcohol Frequency Hospita l History SDOH Caodaism Alcohol Std Drinks Hospit al History SDOH Caodaism Alcohol [facility] Tobacco use and 2022-02-11 2022-02-11 Former smokeless Uni versity of exposure 00:00:00 00:00:00 tobacco user [facility] Tobacco Comment 2022-02-11 2022-02-11 Smokes approx 1-2 Un iversity of 00:00:00 00:00:00 cigarettes per [facility] day when she Branch smokes Exposure to 2022-01-31 2022-02-10 Not sure University of SARS-CoV-2 (event) 00:00:00 22:53:00 [facility] Alcohol intake 2020-12-08 2020-12-08 Current drinker [facility] dist 00:00:00 00:00:00 of alcohol Hospital (finding) Cigarettes smoked 2020-09-05 2020-09-[address] current [facility] - [facility]orted Cigarette 2020-09-05 2020-09-05 Caodaism pack-years 00:00:00 00:00:00 Hospital Alcohol Comment 2016-09-23 2016-09-23 rare Caodaism 00:00:00 00:00:00 Hospital History of tobacco 2011-09-29 User of smokeless University of use 00:00:00 tobacco [facility] Sex Ass[birth year] At [birth year] [facility] 00:00:00 00:00:00 Smoking Status Start Date Stop Date Source Ex-smoker 2022-02-11 00:00:00 2022-02-11 00:00:00 Universi ty of [facility] Medications Ordered Filled Start [...] 04/22/22 at 1645, Routine amoxicillin 2021-05 Yes [id number] 1{tbl} Take 1 Univers -clavulanat 2- 368137 tablet by i ty of e 875-125 00:00: mouth [place] mg per 00 every 12 Medical tablet (twelve) Branch hours. ondansetron 2021-05 Yes [id number] 4mg Take 1 Univers 4 mg 2 196063 tablet by ity of disintegrat 00:00: mouth [place] ing tablet 00 every 8 Medica l (eight) Branch hours as needed for Nausea and Vomiting (N/V). zoster 2021-05- Yes [id number] .5mL 0.5 mL by Univers vaccine, 0-14 [...] o f 1 mg tablet 19:28: at [place] [address] bedtime. Medical Branch traZODone 0 Yes 50mg Take 50 mg Un matt 100 mg 9-27 by mouth ity of tablet 19:28: at [place] [address] bedtime. Medical Branch hydralAZINE 0 Yes 25mg [...] o f 1 mg tablet 19:28: at [place] [address] bedtime. Medical Branch traZODone 2021-0 Yes 50mg Take 50 mg Un matt 100 mg 9-27 by mouth ity of tablet 19:28: at [place] [address] bedtime. Medical Branch hydralAZINE 2021-0 Yes 25mg [...] 100 mg 04 (two) Medical tablet times [place] daily. amLODIPine 2021-0 Yes 10mg Take 10 mg U nivers (NORVASC) 9-27 by mouth ity of 10 mg 19:28: daily. [place] tablet 04 Medical Branch clonazePAM 2021-0 Yes 1mg Take 1 mg Un matt (KLONOPIN) 9-27 by mouth ity o f 1 mg tablet 19:28: at [place] [address] bedtime. Medical Branch traZODone 2021-0 Yes 50mg Take 50 mg Un matt 100 mg 9-27 by mouth ity of tablet 19:28: at [place] [address] bedtime. Medical Branch hydralAZINE 2021-0 Yes 25mg [...] o f 1 mg tablet 19:28: at [place] [address] bedtime. Medical Branch traZODone 2-0 Yes 50mg Take 50 mg Un matt 100 mg 9-27 by mouth ity of tablet 19:28: at [place] [address] bedtime. Medical Branch hydralAZINE 2021-0 Yes 25mg [...] o f 1 mg tablet 19:28: at [place] [address] bedtime. Medical Branch traZODone 2-0 Yes 50mg Take 50 mg Un matt 100 mg 9-27 by mouth ity of tablet 19:28: at [place] [address] bedtime. Medical Branch hydralAZINE 2-0 Yes 25mg [...] o f 1 mg tablet 19:28: at [place] [address] bedtime. Medical Branch traZODone 2021-0 Yes 50mg Take 50 mg Un matt 100 mg 9-27 by mouth ity of tablet 19:28: at [place] [address] bedtime. Medical Branch hydralAZINE 2021-0 Yes 25mg [...] o f 1 mg tablet 19:28: at [place] [address] bedtime. Medical Branch traZODone 2021-0 Yes 50mg Take 50 mg Un matt 100 mg 9-27 by mouth ity of tablet 19:28: at [place] 04 bedtime. Medical [place] cefpodoxime 2021-0 2021- Yes [id number] 200mg Take 1 Univers 200 mg 02-16 tablet by ity of tablet 00:00: 04:59 mouth in [place] 00 :00 the Medical morning Branch and 1 tablet in the evening. Do all this for 3 days. cefpodoxime 0 2021- Yes [id number] 200mg Take 1 Univers 200 mg 02-16 tablet by ity of tablet 00:00: 04:59 mouth in [place] 00 :00 the [facility] morning Branch and 1 tablet in the evening. Do all this for 3 days. haloperidol 2021- No 2mg 2 mg, Slow Univers lactate 02-15 IV Push, ity of (HALDOL) 09:00: 09:12 ONCE, 1 [place] injection 2 00 :00 dose, On Medi porfirio mg [facility] 02/15/22 at 0400, Routine hydroCHLORO 0 Yes 25mg 25 mg, [facility] ers thiazide 9-25 Oral, ity of (ESIDRIX) 14:00: DAILY, [place] capsule 25 00 First dose Med ical mg on [place] 02/14/22 at 0900, Until Discontinu ed, Routine butalbital- 0 Yes 1{tbl} 1 tablet, [facility] acetaminoph -24 Oral, ity of en-caff 18:46: Q6HPRN, [place] (ESGIC) 06 Starting Medical 50-325-40 on [facility] Branch mg tablet 1 02/13/22 at tablet 1346, Until Discontinu ed, Routine, headaches dicyclomine 0 Yes 10mg 10 mg, Univ ers (BENTYL) 9-24 Oral, QID, ity o f capsule 10 17:00: First dose [place] mg 00 on [facility] Medical 02/13/22 at Branch 1200, Until [...] of 2,000 mg in 17:00: 18:24 Piggyback, [place] NaCl 0.9% 00 :00 Q24H ABX, Medic [...] 00 :00 dose, On Medic al mg [facility] Branch 02/11/22 at 1645, Routine nitroglycer Yes .4mg 0.4 mg, Uni vers in 02-11 Sublingual ity of (NITROSTAT) 21:31: , Q5MIN [place] sublingual 20 PRN, Medical tablet 0.4 Starting Branc h mg on [facility] 02/11/22 at 1631, Until Discontinu ed, [...] (MYCOLOG) 19:00: dose on [place] cream 00 [facility] Medical 02/11/22 at Branch 1400, Until Discontinu ed, Routine busPIRone Yes 30mg 30 mg, Univer s (BUSPAR) 02-11 Oral, BID, ity o f tablet 30 18:00: First dose [place] mg 00 on [facility] Medical 02/11/22 at Branch 1300, Until Discontinu ed, Routine raltegravir Yes 400mg 400 mg, Un matt (ISENTRESS) 02-11 Oral, BID, it y of tablet 400 18:00: First dose [place] mg 00 on [facility] Medical 02/11/22 at Branch 1300, Until Discontinu ed, JOE metoprolol 2021-0 Yes 100mg 100 mg, Uni vers tartrate 02-11 Oral, BID, ity o f (LOPRESSOR) 18:00: First dose [place] tablet 100 00 on [facility] Medical mg 02/11/22 at Branch 1300, Until Discontinu ed, Routine lisinopriL 0 Yes 40mg 40 mg, Unive rs (PRINIVIL,Z 02-11 Oral, BID, it y of ESTRIL) 18:00: First dose [place] tablet 40 00 on [facility] Medical mg 02/11/22 at Branch 1300, Until Discontinu ed, Routine emtricitabi 0 Yes 1{tbl} 1 tablet, Univers ne-tenofovi 02-11 Oral, ity of r alafen 18:00: DAILY, [place] (DESCOVY) 00 First dose Medi porfirio tablet 1 on [facility] tablet 02/11/22 at 1300, Until Discontinu ed, Routine ipratropium 0 Yes .5mg 0.5 mg, Uni vers (ATROVENT) 02-11 Inhalation ity of 0.02 % 17:57: , QIDPRN, [place] nebulizer 10 Starting Medica l solution on [facility] Branch 0.5 mg 02/11/22 at 1257, Until Discontinu ed, Routine, Wheezing, Shortness of Breath amLODIPine 0 Yes 10mg 10 mg, Unive rs (NORVASC) 02-11 Oral, ity of tablet 10 17:30: DAILY, [place] mg 00 First dose Medical (after Branch last modificati on) on [facility] 02/11/22 at 1230, Until Discontinu ed, Routine hydrALAZINE 0 2021- No 25mg 25 mg, Uni vers (APRESOLINE 02-11 Oral, ity of ) tablet 25 17:30: 12:54 DAILY, [place] mg 00 :55 First dose Medical (after Branch last modificati on) on [facility] 02/11/22 at 1230, Until Discontinu ed, [...] Oral, ity of (TYLENOL 14:06: 17:37 Q6HPN, [place] #3) 300-30 19 :24 Starting Medic al mg tablet 1 on [place] Branch tablet 02/11/22 at 0906, Until Tue02/12/22 at 1237, Routine, Pain (scale 4-6) sennosides- 0 Yes 1{tbl} 1 tablet, Univers docusate 02-11 Oral, ity of sodium 14:06: QDAILYPRN, [place] (SENOKOT-S) 09 Starting Medi porfirio 8.6-50 mg on [facility] Branch per tablet 02/11/22 at 1 tablet 0906, Until Discontinu ed, Routine, Constipati on ondansetron 0 Yes 4mg 4 mg, Slow Univers (ZOFRAN 02-11 IV Push, ity of (PF)) 14:05: Q6HPRNLos [place], [place] injection 4 59 Starting Medi porfirio mg on [place] Branch 02/11/22 at 0905, Until Discontinu ed, Routine, Nausea and Vomiting (N/V) acetaminoph 2021-0 Yes 650mg 650 mg, Un matt en 02-11 Oral, ity of (TYLENOL) 14:04: Q6HPNLos [place], [place] tablet 650 37 Starting Medic al [...] [facility] 54 [facility] Branch amLODIPine Yes 10mg Take 10 mg U nivers (NORVASC) 02-11 by mouth ity of 10 mg 09:10: daily. [facility] 54 [facility] Branch piperacilli 2021- No 3.375g [...] of therapy: 72 hours iopamidol 2021- No [id number] 60mL 60 mL, Univers (ISOVUE 02-11 Intravenou [...] Branch 02/11/22 at 0015, JOE emtricitabi Yes [id number] Take one Univers ne-tenofovi 9-12 po daily ity of r alafen 00:00: [place] (DESCOVY) 00 Medical tablet Branch emtricitabi Yes [id number] Take one Univers ne-tenofovi 9-12 po daily ity of r alafen 00:00: [place] (DESCOVY) 00 Medical tablet Branch emtricitabi Yes [id number] Take one Univers ne-tenofovi 9-12 po daily ity of r alafen 00:00: [place] (DESCOVY) 00 Medical tablet Branch emtricitabi Yes [id number] Take one Univers ne-tenofovi 9-12 po daily ity of r alafen 00:00: [place] (DESCOVY) 00 Medical tablet Branch emtricitabi Yes [id number] Take one Univers ne-tenofovi 9-12 po daily ity of r alafen 00:00: [place] (DESCOVY) 00 Medical tablet Branch emtricitabi Yes [id number] Take one Univers ne-tenofovi 9-12 po daily ity of r alafen 00:00: [place] (DESCOVY) 00 Medical tablet Branch emtricitabi Yes [id number] Take one Univers ne-tenofovi 9-12 po daily ity of r alafen 00:00: [place] (DESCOVY) 00 Medical tablet Branch emtricitabi 2021-0 Yes [id number] Take one Univers ne-tenofovi 9-12 po daily ity of r alafen 00:00: [place] (DESCOVY) 00 Medical tablet Branch naproxen 2021-0 Yes [id number] 500mg Take 1 U nivers (NAPROSYN) 7-24 tablet by ity of 500 mg 00:00: mouth in [place] tablet 00 the Medical morning Branch and 1 tablet in the evening. Take with meals. methocarbam 2021-0 Yes [id number] 500mg Take 1 Univers oL 500 mg 7-24 tablet by ity o f tablet 00:00: mouth 4 () Medical times Branch daily. naproxen 2021-0 Yes [id number] 500mg Take 1 U nivers (NAPROSYN) 7-24 tablet by ity of 500 mg 00:00: mouth in [place] tablet 00 the Medical morning Branch and 1 tablet in the evening. Take with meals. methocarbam 2021-0 Yes [id number] 500mg Take 1 Univers oL 500 mg 7-24 tablet by ity o f tablet 00:00: mouth 4 (four) Medical times Branch daily. naproxen 2021-0 Yes [id number] 500mg Take 1 U nivers (NAPROSYN) 7-24 tablet by ity of 500 mg 00:00: mouth in [place] tablet 00 the Medical morning Branch and 1 tablet in the evening. Take with meals. methocarbam 2021-0 Yes [id number] 500mg Take 1 Univers oL 500 mg 7-24 tablet by ity o f tablet 00:00: mouth 4 [place] (four) Medical times Branch daily. esomeprazol 2021- [...] ty of mg tablet 09:11: 00:00 (two) [place] 35 :00 times Medical daily. Branch traZODONE 2021- No Take by [facility] ers (DESYREL) 11-20 mouth at ity o f 10 mg/mL 09:10: 00:00 [place]time. [place] oral 28 :00 Medical suspension Branch hydralAZINE Yes 25mg Take 25 mg Univers (APRESOLINE 11-20 by mouth ity of ) 25 mg 08:47: daily. [place] tablet 47 Medical Branch cephALEXin 2021- No [id number] 500mg Take 1 Univers (KEFLEX) 10-24 capsule [...] 7-10). Indication s: acute pain buPROPion Yes [id number] 150mg Take 1 U nivers XL 4-12 tablet by ity of (WELLBUTRIN 00:00: mouth [place] XL) 150 mg 00 daily. Medical 24 hr Branch tablet busPIRone Yes [id number] 30mg Take 1 Un matt 30 mg 4-12 tablet by ity of tablet 00:00: mouth 2 [place] 00 (two) Medical times Branch daily. SERTraline Yes [id number] 200mg Take 2 Univers 100 mg 4-12 tablets by ity of tablet 00:00: mouth [place] 00 daily. Medical Branch buPROPion Yes [id number] 150mg Take 1 U nivers XL 4-12 tablet by ity of (WELLBUTRIN 00:00: mouth [place] XL) 150 mg 00 daily. Medical 24 hr Branch tablet busPIRone Yes [id number] 30mg Take 1 Un matt 30 mg 4-12 tablet by ity of tablet 00:00: mouth 2 [place] 00 (two) Medical times Branch daily. SERTraline 2021-0 Yes [id number] 200mg Take 2 Univers 100 mg 4-12 tablets by ity of tablet 00:00: mouth [place] 00 daily. Medical Branch buPROPion 2021-0 Yes [id number] 150mg Take 1 U nivers XL 4-12 tablet by ity of (WELLBUTRIN 00:00: mouth [place] XL) 150 mg 00 daily. Medical 24 hr Branch tablet busPIRone 2021-0 Yes [id number] 30mg Take 1 Un matt 30 mg 4-12 tablet by ity of tablet 00:00: mouth 2 [place] 00 (two) Medical times Branch daily. SERTraline 2021-0 Yes [id number] 200mg Take 2 Univers 100 mg 4-12 tablets by ity of tablet 00:00: mouth [place] 00 daily. Medical Branch buPROPion 2021-0 Yes [id number] 150mg Take 1 U nivers XL 4-12 tablet by ity of (WELLBUTRIN 00:00: mouth [place] XL) 150 mg 00 daily. Medical 24 hr Branch tablet busPIRone 2021-0 Yes [id number] 30mg Take 1 Un matt 30 mg 4-12 tablet by ity of tablet 00:00: mouth 2 00 (two) Medical times Branch daily. SERTraline 2021-0 Yes [id number] 200mg Take 2 Univers 100 mg 4-12 tablets by ity of tablet 00:00: mouth [place] 00 daily. Medical Branch buPROPion 2021-0 Yes [id number] 150mg Take 1 U nivers XL 4-12 tablet by ity of (WELLBUTRIN 00:00: mouth [place] XL) 150 mg 00 daily. Medical 24 hr Branch tablet busPIRone 2021-0 Yes [id number] 30mg Take 1 Un matt 30 mg 4-12 tablet by ity of tablet 00:00: mouth 2 [place] 00 (two) Medical times Branch daily. SERTraline 2021-0 Yes [id number] 200mg Take 2 Univers 100 mg 4-12 tablets by ity of tablet 00:00: mouth [place] 00 daily. Medical Branch buPROPion 2021-0 Yes [id number] 150mg Take 1 U nivers XL 4-12 tablet by ity of (WELLBUTRIN 00:00: mouth [place] XL) 150 mg 00 daily. Medical 24 hr Branch tablet busPIRone 2021-0 Yes [id number] 30mg Take 1 Un matt 30 mg 4-12 tablet by ity of tablet 00:00: mouth 2 [place] 00 (two) Medical times Branch daily. SERTraline 2021-0 Yes [id number] 200mg Take 2 Univers 100 mg 4-12 tablets by ity of tablet 00:00: mouth [place] 00 daily. Medical Branch buPROPion 2021-0 Yes [id number] 150mg Take 1 U nivers XL 4-12 tablet by ity of (WELLBUTRIN 00:00: mouth [place] XL) 150 mg 00 daily. Medical 24 hr Branch tablet busPIRone 2021-0 Yes [id number] 30mg Take 1 Un matt 30 mg 4-12 tablet by ity of tablet 00:00: mouth 2 [place] 00 (two) Medical times Branch daily. SERTraline 0 Yes [id number] 200mg Take 2 Univers 100 mg 4-12 tablets by ity of tablet 00:00: mouth [place] 00 daily. Medical Branch buPROPion 2021-0 Yes [id number] 150mg Take 1 U nivers XL 4-12 tablet by ity of (WELLBUTRIN 00:00: mouth [place] XL) 150 mg 00 daily. Medical 24 hr Branch tablet busPIRone 2021-0 Yes [id number] 30mg Take 1 Un matt 30 mg 4-12 tablet by ity of tablet 00:00: mouth 2 [place] 00 (two) Medical times Branch daily. SERTraline 2021-0 Yes [id number] 200mg Take 2 Univers 100 mg 4-12 tablets by ity of tablet 00:00: mouth [place] 00 daily. Medical Branch buPROPion 2021-0 Yes [id number] 150mg Take 1 U nivers XL 4-12 tablet by ity of (WELLBUTRIN 00:00: mouth [place] XL) 150 mg 00 daily. Medical 24 hr Branch tablet busPIRone 2021-0 Yes [id number] 30mg Take 1 Un matt 30 mg 4-12 tablet by ity of tablet 00:00: mouth 2 [place] 00 (two) Medical times Branch daily. SERTraline 2021-0 Yes [id number] 200mg Take 2 Univers 100 mg 4-12 tablets by ity of tablet 00:00: mouth [place] 00 daily. Medical Branch raltegravir 2021-0 Yes [id number] 400mg Take 1 Univers (ISENTRESS) 3-28 tablet by ity of 400 mg 00:00: mouth 2 [place] tablet 00 (two) Medical times Branch daily. raltegravir 2021-0 Yes [id number] 400mg Take 1 Univers (ISENTRESS) 3-28 tablet by ity of 400 mg 00:00: mouth 2 [place] tablet 00 (two) Medical times Branch daily. raltegravir 2021-0 Yes [id number] 400mg Take 1 Univers (ISENTRESS) 3-28 tablet by ity of 400 mg 00:00: mouth 2 [place] tablet 00 (two) Medical times Branch daily. raltegravir 2021-0 Yes [id number] 400mg Take 1 Univers (ISENTRESS) 3-28 tablet by ity of 400 mg 00:00: mouth 2 [place] tablet 00 (two) Medical times Branch daily. raltegravir 2021-0 Yes [id number] 400mg Take 1 Univers (ISENTRESS) 3-28 tablet by ity of 400 mg 00:00: mouth 2 [place] tablet 00 (two) Medical times Branch daily. raltegravir 0 Yes [id number] 400mg Take 1 Univers (ISENTRESS) 3-28 tablet by ity of 400 mg 00:00: mouth 2 [place] tablet 00 (two) Medical times Branch daily. raltegravir 0 Yes [id number] 400mg Take 1 Univers (ISENTRESS) 3-28 tablet by ity of 400 mg 00:00: mouth 2 [place] tablet 00 (two) Medical times Branch daily. raltegravir 2021-0 Yes [id number] 400mg Take 1 Univers (ISENTRESS) 3-28 tablet by ity of 400 mg 00:00: mouth 2 [place] tablet 00 (two) Medical times Branch daily. raltegravir 2021-0 Yes [id number] 400mg Take 1 Univers (ISENTRESS) 3-28 tablet by ity of 400 mg 00:00: mouth 2 [place] tablet 00 (two) Medical times Branch daily. LORazepam 1 0 2021- No [id number] 1mg Take 1 Univers mg tablet 3-10 [...] times a tablet day. emtricitabi 2021- No [id number] Take one Univers ne-tenofovi -20 09-12 po daily ity of r alafen 00:00: 00:00 [place] (DESCOVY) 00 :00 Medical tablet Branch metoprolol Yes [id number] Take 1 [place] tartrate 7-26 tablet Health (Lopressor) 00:00: (100 mg 100 MG 00 total) by tablet mouth 2 (two) times a day AND 0.5 tablets (50 mg total) every night. metoprolol Yes [id number] Take 1 [place] tartrate 7-26 tablet Health [...] (affected area in groin) hydrALAZINE Yes 50mg Q.[id number] Take 50 mg Methodi (APRESOLINE 7-19 [id number] mouth [address] ) 50 MG [...] area in groin) hydrALAZINE 0 Yes 50mg Q.[id number] Take 50 mg Methodi (APRESOLINE 7-19 [id number] mouth [address] ) 50 MG [...] area in groin) hydrALAZINE 0 Yes 50mg Q.[id number] Take 50 mg Methodi (APRESOLINE 7-19 [id number] mouth 3 [address] ) 50 MG [...] (affected area in groin) hydrALAZINE Yes 50mg Q.[id number] Take 50 mg Methodi (APRESOLINE 7-19 [id number] [address] mouth [address] [facility] ) 50 MG [...] (affected area in groin) hydrALAZINE Yes 50mg Q.[id number] Take 50 mg Methodi (APRESOLINE 7-[id number] mouth [address] ) 50 MG [...] area in groin) hydrALAZINE 0 Yes 50mg Q.[id number] Take 50 mg Methodi (APRESOLINE 7-19 [id number] mouth [address] ) 50 MG [...] area in groin) hydrALAZINE 0 Yes 50mg Q.[id number] Take 50 mg Methodi (APRESOLINE 7-19 [id number] [address] mouth [address] ) 50 MG [...] (affected area in groin) hydrALAZINE Yes 50mg Q.[id number] Take 50 mg Methodi (APRESOLINE 7-[id number] mouth [address] ) 50 MG [...] area in groin) hydrALAZINE 0 Yes 50mg Q.[id number] Take 50 mg Methodi (APRESOLINE 7-19 [id number] mouth [address] ) 50 MG [...] area in groin) hydrALAZINE 0 Yes 50mg Q.[id number] Take 50 mg Methodi (APRESOLINE 7-19 [id number] mouth [address] ) 50 MG [...] (affected area in groin) hydrALAZINE Yes 50mg Q.[id number] Take 50 mg Methodi (APRESOLINE 7-19 [id number] [address] mouth 3 [address] ) 50 MG [...] area in groin) hydrALAZINE 0 Yes 50mg Q.[id number] Take 50 mg Methodi (APRESOLINE 7-19 [id number] [address] mouth [address] ) 50 MG [...] area in groin) hydrALAZINE 2021-0 Yes 50mg Q.[id number] Take 50 mg Methodi (APRESOLINE 7-19 [id number] mouth [address] ) 50 MG [...] (affected area in groin) hydrALAZINE Yes 50mg Q.[id number] Take 50 mg Methodi (APRESOLINE 7-19 [id number] mouth [address] ) 50 MG [...] area in groin) hydrALAZINE 0 Yes 50mg Q.[id number] Take 50 mg [facility] (APRESOLINE 7-19 [id number] by mouth 3 st ) 50 MG [...] area in groin) hydrALAZINE 0 Yes 50mg Q.[id number] Take 50 mg [facility] (APRESOLINE 7-19 [id number] by mouth 3 st ) 50 MG [...] (affected area in groin) hydrALAZINE Yes 50mg Q.[id number] Take 50 mg [facility] (APRESOLINE 7-19 [id number] by mouth 3 st ) 50 MG [...] (affected area in groin) hydrALAZINE Yes 50mg Q.[id number] Take 50 mg [facility] (APRESOLINE 7-19 [id number] by mouth 3 st ) 50 MG [...] area in groin) hydrALAZINE 0 Yes 50mg Q.[id number] Take 50 mg [facility] (APRESOLINE 7-19 [id number] by mouth 3 st ) 50 MG [...] area in groin) hydrALAZINE 0 Yes 50mg Q.[id number] Take 50 mg [facility] (APRESOLINE 7-19 [id number] by mouth 3 st ) 50 MG [...] (affected area in groin) hydrALAZINE Yes 50mg Q.[id number] Take 50 mg [facility] (APRESOLINE 7-19 [id number] by mouth 3 st ) 50 MG [...] (affected area in groin) hydrALAZINE Yes 50mg Q.[id number] Take 50 mg [facility] (APRESOLINE 7-19 [id number] by mouth 3 st ) 50 MG [...] tablet 25 daily. l nystatin-tr 0 Yes [id number] Apply to [facility] iamcinolone 7-06 area(s) 3 ity of cream 00:00: (three) [place] 00 times Medical daily. Branch nystatin-tr 2021-0 Yes [id number] Apply to [facility] iamcinolone 7-06 area(s) 3 ity of cream 00:00: (three) [place] 00 times Medical daily. Branch nystatin-tr 2021-0 Yes [id number] Apply to [facility] iamcinolone 7-06 area(s) 3 ity of cream 00:00: (three) [place] 00 times Medical daily. Branch nystatin-tr 2021-0 Yes [id number] Apply to [facility] iamcinolone 7-06 area(s) 3 ity of cream 00:00: (three) [place] 00 times Medical daily. Branch nystatin-tr 2021-0 Yes [id number] Apply to [facility] iamcinolone 7-06 area(s) 3 ity of cream 00:00: (three) [place] 00 times Medical daily. Branch nystatin-tr 2021-0 Yes [id number] Apply to [facility] iamcinolone 7-06 area(s) 3 ity of cream 00:00: (three) [place] 00 times Medical daily. Branch nystatin-tr 2021-0 Yes [id number] Apply to [facility] iainolone 7- area(s) 3 ity of cream 00:00: (three) [place] 00 times Medical daily. Branch nystatin-tr 2020-[id number] [facility] 00:00: (three) [place] 00 times Medical daily. Branch nystatin-tr 2020-[id number] [facility] ity of cream 00:00: (three) [place] 00 times Medical daily. Branch budesonide- 2020-0 2021- No 1{puff} QD Inhale 1 [facility] formoteroL 6-25 06-[address] (SYMBICORT) 14:37: 00:00 morning. H ospita 160-4.5 02 :00 l mcg/actuati on inhaler hydrALAZINE 0 Yes [id number] 50mg Q.[id number] Take 1 [place] (Apresoline 6-11 [id number] tablet (50 Health ) 50 MG 00:00: 3D mg total) tablet 00 by mouth 3 (three) times a day. hydrALAZINE Yes [id number] 50mg Q.[id number] Take 1 [place] (Apresoline 6-11 [id number] tablet (50 Health ) 50 MG 00:00: [...] % 00:00: ointment 00 nystatin 2020- No [id number] Q.25D Take 5 mL [facility] (MYCOSTATIN 10-06 [...] ia 4-10 (Same as: l 14:00: Cordarone) [place] Amlodipine No Notes: Memor ia 4-10 (Same as: l 14:00: Norvasc) [place] emtricitabi No Notes: Caesar lisa ne 200 MG / 4-10 (Same as: l tenofovir 14:00: Descovy) Herm ariel alafenamide 00 Non-formul 25 MG Oral nancy Tablet [Descovy] Sertraline No Notes: Memor ia 4-10 (Same as: l 14:00: Zoloft) [place] pantoprazol No Notes: [place] lisa e 4-10 Tablet l 14:00: should not [place] 00 be chewed or crushed. (Same as: [...] ia 4-10 (Same as: l 14:00: Zoloft) [place] 00 pantoprazol No Notes: [place] lisa e 4-10 Tablet l 14:00: should not [place] 00 be chewed or crushed. (Same as: Protonix) Amiodarone No Notes: Memor ia 4-10 (Same as: l 14:00: Cordarone) [place] Amlodipine No Notes: Memor ia 4-10 (Same as: l 14:00: Norvasc) [place] emtricitabi No Notes: Caesar lisa ne 200 [...] ia 4-10 (Same as: l 14:00: Cordarone) [place] 00 Amlodipine No Notes: Memor ia 4-10 (Same as: l 14:00: Norvasc) [place] emtricitabi No Notes: [place] lisa ne 200 MG / 4-10 (Same as: l tenofovir 14:00: Descovy) Herm ariel alafenamide 00 Non-formul 25 MG Oral nancy Tablet [Descovy] Sertraline No Notes: Memor ia 4-10 (Same as: l 14:00: Zoloft) [place] 00 pantoprazol No Notes: [place] lisa e 4-10 Tablet l 14:00: should not [place] 00 be chewed or crushed. (Same as: Protonix) Amiodarone No Notes: Memor ia 4-10 (Same as: l 14:00: Cordarone) [place] Amlodipine No Notes: Memor ia 4-10 (Same as: l 14:00: Norvasc) [place] emtricitabi No Notes: Caesar lisa ne 200 MG / 4-10 (Same as: l tenofovir 14:00: Descovy) Herm ariel alafenamide 00 Non-formul 25 MG Oral nancy Tablet [Descovy] Sertraline No Notes: Memor ia 4-10 (Same as: l 14:00: Zoloft) [place] pantoprazol No Notes: [place] lisa e 4-10 Tablet l 14:00: should not [place] 00 be chewed or crushed. (Same as: Protonix) Amiodarone No Notes: Memor ia 4-10 (Same as: l 14:00: Cordarone) [place] 00 Sucralfate No Notes: May M emoria [...] 0.9% 4-10 (Same as: l 02:00: BD [place] Posiflush) Eliquis No Notes: Memoria 4-10 Same [...] 0.9% 4-10 (Same as: l 02:00: BD [place] Posiflush) Eliquis No Notes: Memoria 4-10 Same as: l 02:00: Eliquis [place] 00 Hydralazine No Notes: Caesar lisa Hydrochlori 4-10 (Same as: l de 50 MG 02:00: Apresoline Her mitchell Oral Tablet 00 ) May interfere w/enteral feedings Take With Food Sucralfate No Notes: May M emoria 4-10 interfere l 02:00: w/enteral [place] 00 feeds - Take 1 hr before [...] M emoria 4-10 interfere l 02:00: w/enteral [place] 00 feeds - Take 1 hr before or 2 hr after antacids, dairy pdt, meals & minerals - On empty stomach. For patients unable to swallow tablet, dissolve in 10mL - 30mL of water or juice and stir before giving. (Same As: Carafate) Saline No Notes: Memoria Flush 0.9% 4-10 (Same as: l 02:00: BD [place] 00 Posiflush) Eliquis No Notes: Memoria 4-10 Same as: l 02:00: Eliquis [place] Hydralazine No Notes: Caesar lisa Hydrochlori 4-10 [...] Memoria 4-10 Same as: l 02:00: Eliquis [place] 00 Hydralazine No Notes: Caesar lisa Hydrochlori 4-10 (Same as: l de 50 MG 02:00: Apresoline Her mitchell Oral Tablet 00 ) May interfere w/enteral feedings Take With Food Sucralfate No Notes: May M emoria 4-10 interfere l 02:00: w/enteral [place] 00 feeds - Take 1 hr before [...] 0.9% 4-10 (Same as: l 02:00: BD [place] Posiflush) Eliquis No Notes: Memoria 4-10 Same as: l 02:00: Eliquis [place] 00 Hydralazine No Notes: Caesar lisa Hydrochlori 4-10 (Same as: l de 50 MG 02:00: Apresoline Her mitchell Oral Tablet 00 ) May interfere w/enteral feedings Take With Food acetaminoph No Notes: Do M emoria en-codeine 4-10 not exceed l #3 00:12: 4gm/day of [place] acetaminop hen. (Same as: Tylenol with Codeine # 3) acetaminoph No Notes: Do M emoria en-codeine 4-10 not exceed l #3 00:12: 4gm/day of [place] acetaminop hen. (Same as: Tylenol with Codeine [...] not exceed l #3 00:12: 4gm/day of [place] acetaminop hen. (Same as: Tylenol with Codeine # 3) acetaminoph No Notes: Do M emoria en-codeine 4-10 not exceed l #3 00:12: 4gm/day of [place] acetaminop hen. (Same as: Tylenol with Codeine # 3) acetaminoph No Notes: Do M emoria en-codeine 4-10 not exceed l #3 00:12: 4gm/day of [place] acetaminop hen. (Same as: Tylenol with Codeine [...] tartrate 4-09 tab, l 22:00: Route: PO, [place] 00 Drug form: TAB, BID, Dosing Weight [...] oria 4-09 tab, l 22:00: Route: PO, [place] Drug form: TAB, BID, Dosing Weight 97.273, kg, Start date: 08/29/20 17:00:00 CDT, Duration: 30 day, Stop date: 09/28/20 9:00:00 CDT metoprolol 1-0 No 100 mg, 1 Me moria tartrate 4-09 tab, l 22:00: Route: PO, [place] 00 Drug form: TAB, BID, Dosing Weight [...] oria - tab, l 22:00: Route: PO, [place] Drug form: TAB, BID, Dosing Weight 97.273, kg, Start date: 08/29/20 17:00:00 CDT, Duration: 30 day, Stop date: 09/28/20 9:00:00 CDT metoprolol 2021-0 No 100 mg, 1 Me moria tartrate - tab, l 22:00: Route: PO, [place] 00 Drug form: TAB, BID, Dosing Weight 97.273, kg, Start date: 08/29/20 17:00:00 CDT, Duration: 30 day, Stop date: 09/28/20 9:00:00 CDT Raltegravir 2021-0 No 400 mg, 1 M emoria 400 MG Oral - tab, l Tablet 22:00: Route: PO, Skyl[place] [[facility]] Drug form: TAB, BID, Dosing Weight [...] oria 4-09 tab, l 22:00: Route: PO, [place] 00 Drug form: TAB, BID, Dosing Weight 97.273, kg, Start date: 08/29/20 17:00:00 CDT, Duration: 30 day, Stop date: 09/28/20 9:00:00 CDT metoprolol 2021-0 No 100 mg, 1 Me moria tartrate 4-09 tab, l 22:00: Route: PO, [place] 00 Drug form: TAB, BID, Dosing Weight [...] oria 4- tab, l 22:00: Route: PO, [place] 00 Drug form: TAB, BID, Dosing Weight 97.273, kg, Start date: 08/29/20 17:00:00 CDT, Duration: 30 day, Stop date: 09/28/20 9:00:00 CDT metoprolol 2020-0 No 100 mg, 1 Me moria tartrate 4-09 tab, l 22:00: Route: PO, [place] 00 Drug form: TAB, BID, Dosing Weight [...] Notes: Memoria 08-29 (Same l 17:07: as:MORPhin [place] 00 e Sulfate) Morphine No Notes: Memoria 4- (Same l 17:07: as:MORPhin [place] 00 e Sulfate) Morphine No Notes: Memoria 4- (Same l 17:07: as:MORPhin [place] 00 e Sulfate) Morphine No Notes: Memoria 4- (Same l 17:07: as:MORPhin [place] 00 e Sulfate) Morphine No Notes: Memoria 4- (Same l 17:07: as:MORPhin [place] 00 e Sulfate) Morphine No Notes: Memoria 4-09 (Same l 17:07: as:MORPhin [place] 00 e Sulfate) Morphine No Notes: Memoria [...] ONCE, Stop date: 08/29/20 10:40:00 CDT neostigmine 2021-0 [...] 30 tab, 0 coated Refill(s), tablet Pharmacy: [facility] 149, 162.56, cm, 08/29/20 5:30:00 CDT, Height, 97.273, kg, 08/29/20 5:30:00 CDT, Weight pantoprazol 2020-0 Yes 40 mg = 1 M emoria e 40 mg 4-09 tab, PO, l oral 15:27: Daily, # [place] enteric 00 30 tab, 0 coated Refill(s), tablet Pharmacy: [facility] 149, 162.56, cm, 08/29/20 5:30:00 CDT, Height, 97.273, kg, 08/29/20 5:30:00 CDT, Weight pantoprazol 2020-0 Yes 40 mg = 1 M emoria e 40 mg 4-09 tab, PO, l oral 15:27: Daily, # [place] enteric 00 30 tab, 0 coated Refill(s), tablet Pharmacy: [facility] 149, 162.56, cm, 08/29/20 5:30:00 CDT, Height, 97.273, kg, 08/29/20 5:30:00 CDT, Weight pantoprazol 2021-0 Yes 40 mg = 1 M emoria e 40 mg 4-09 tab, PO, l oral 15:27: Daily, # [place] enteric 00 30 tab, 0 coated Refill(s), tablet [facility], 162.56, cm, 08/29/20 5:30:00 CDT, Height, 97.273, kg, 08/29/20 5:30:00 CDT, Weight pantoprazol 2021-0 Yes 40 mg = 1 M emoria e 40 mg 4-09 tab, PO, l oral 15:27: Daily, # [place] enteric 00 30 tab, 0 coated Refill(s), tablet [facility], 162.56, cm, 08/29/20 5:30:00 CDT, Height, 97.273, kg, 08/29/20 5:30:00 CDT, Weight pantoprazol 2021-0 Yes 40 mg = 1 M emoria e 40 mg 4-09 tab, PO, l oral 15:27: Daily, # [place] enteric 00 30 tab, 0 coated Refill(s), tablet [facility], 162.56, cm, 08/29/20 5:30:00 CDT, Height, 97.273, kg, 08/29/20 5:30:00 CDT, Weight pantoprazol 2021-0 Yes 40 mg = 1 M emoria e 40 mg 4-09 tab, PO, l oral 15:27: Daily, # [place] enteric 00 30 tab, 0 coated Refill(s), tablet [facility], 162.56, cm, 08/29/20 5:30:00 CDT, Height, 97.273, kg, 08/29/20 5:30:00 CDT, Weight pantoprazol 2021-0 No 40 mg = 1 M emoria e 40 mg 4-09 tab, PO, l oral 15:26: Daily, # [place] enteric 00 30 tab, 0 coated Refill(s) tablet sucralfate 2020-0 Yes 1 gm = 1 Mem oria 1 g oral 4-09 tab, PO, l tablet 15:26: Q12H, # 28 Skylar nn 00 tab, 0 Refill(s), Pharmacy: [facility] 149, 162.56, cm, 08/29/20 5:30:00 [...] Skyl[place] nn 00 tab, 0 Refill(s), Pharmacy: [facility] 149, 162.56, cm, 08/29/20 5:30:00 CDT, Height, 97.273, kg, 08/29/20 5:30:00 CDT, Weight pantoprazol 2020-0 No 40 mg = 1 M emoria e 40 mg 4-09 tab, PO, l oral 15:26: Daily, # [place] enteric 00 30 tab, 0 coated Refill(s) tablet sucralfate 2020-0 Yes 1 gm = 1 Mem oria 1 g oral 4-09 tab, PO, l tablet 15:26: Q12H, # 28 Skyl[place] nn 00 tab, 0 Refill(s), Pharmacy: [facility] 149, 162.56, cm, 08/29/20 5:30:00 [...] Skyl[place] nn 00 tab, 0 Refill(s), Pharmacy: [facility] 149, 162.56, cm, 08/29/20 5:30:00 CDT, Height, 97.273, kg, 08/29/20 5:30:00 CDT, Weight pantoprazol 2020-0 No 40 mg = 1 M emoria e 40 mg 4-09 tab, PO, l oral 15:26: Daily, # [place] enteric 00 30 tab, 0 coated Refill(s) tablet sucralfate 2020-0 Yes 1 gm = 1 Mem oria 1 g oral 4-09 tab, PO, l tablet 15:26: Q12H, # 28 Skyl[place] nn 00 tab, 0 Refill(s), Pharmacy: [facility] 149, 162.56, cm, 08/29/20 5:30:00 [...] Skylar nn 00 tab, 0 Refill(s), Pharmacy: [place] [id number], 162.56, cm, 08/29/20 5:30:00 CDT, Height, 97.273, [...] Skylar nn 00 tab, 0 Refill(s), Pharmacy: [facility] 149, 162.56, cm, 08/29/20 5:30:00 CDT, Height, 97.273, kg, 08/29/20 5:30:00 CDT, Weight Saline No Notes: Memoria Flush 0.9% 4-09 (Same as: l 15:25: BD [place] 00 Posiflush) Lorazepam No Notes: Memori a 4-09 (Same as: l 15:25: Ativan) [place] 00 Saline No Notes: Memoria Flush 0.9% 4-09 (Same as: l 15:25: BD [place] 00 Posiflush) Lorazepam No Notes: Memori a 4-09 (Same as: l 15:25: Ativan) [place] 00 Saline No Notes: Memoria Flush 0.9% 4-09 (Same as: l 15:25: BD [place] 00 Posiflush) Saline No Notes: Memoria Flush 0.9% 4-09 (Same as: l 15:25: BD [place] 00 Posiflush) Lorazepam No Notes: Memori a 4-09 (Same as: l 15:25: Ativan) [place] 00 Lorazepam No Notes: Memori a 4-09 (Same as: l 15:25: Ativan) [place] 00 Saline No Notes: Memoria Flush 0.9% 4-09 (Same as: l 15:25: BD [place] 00 Posiflush) Lorazepam No Notes: Memori a 4-09 (Same as: l 15:25: Ativan) [place] 00 Saline No Notes: Memoria Flush 0.9% 4-09 (Same as: l 15:25: BD [place] 00 Posiflush) Lorazepam No Notes: Memori a 4-09 (Same as: l 15:25: Ativan) [place] 00 Saline No Notes: Memoria Flush 0.9% 4-09 (Same as: l 15:25: BD [place] 00 Posiflush) Lorazepam No Notes: Memori a 4-09 (Same as: l 15:25: Ativan) Isuprel HCl No Route: IV, Memoria (ANES) 0.2 4-09 Drug form: l mg + 15:00: INJ, [place] Dosing Weight 97.3, kg, Start date: 08/29/20 10:00:00 CDT, Stop date: 08/29/20 11:00:00 CDT Isuprel HCl 2020-0 No Route: IV, Memoria (ANES) 0.2 08-29 Drug form: l mg + 15:00: INJ, [place] Dosing Weight 97.3, kg, Start date: 08/29/20 10:00:00 CDT, Stop date: 08/29/20 11:00:00 CDT Isuprel HCl 2020-0 No Route: IV, Memoria (ANES) 0.2 08-29 Drug form: l mg + 15:00: INJ, [place] Dosing Weight 97.3, kg, Start date: 08/29/20 [...] 08-29 Drug form: l 14:18: INJ, ONCE, [place] Stop date: 08/29/20 9:18:00 CDT Labetalol 1-0 No 10 mg, Memori a 08-29 Route: l 14:01: IVP, [place] 00 Q5Min, Dosing Weight 97.273, kg, PRN Elevated BP, Start date: 08/29/20 9:01:00 CDT, Duration: 5 doses or times, Stop date: Limited # of times Acetaminoph 2020-0 No 1,000 mg, M emoria en 08-29 Route: PO, l 14:01: Drug form: [place] 00 TAB, ONCE, Dosing Weight 97.273, kg, [...] ia 08-29 Route: l 14:01: IVP, ONCE, [place] 00 Dosing Weight 97.273, kg, PRN Nausea & Vomiting, Start date: 08/29/20 9:01:00 CDT Labetalol 1-0 No 10 mg, Memori a 08-29 Route: l 14:01: IVP, [place] 00 Q5Min, Dosing Weight 97.273, kg, PRN [...] ia 08-29 Route: l 14:01: IVP, ONCE, [place] 00 Dosing Weight 97.273, kg, PRN Nausea & Vomiting, Start date: 08/29/20 9:01:00 CDT Labetalol 1-0 No 10 mg, Memori a 08-29 Route: l 14:01: IVP, [place] 00 Q5Min, Dosing Weight 97.273, kg, PRN [...] oria ne 08-29 Route: l 14:01: IVP, [place] 00 Q5Min, Dosing Weight 97.273, kg, PRN [...] Memori a 08-29 Route: l 14:01: IVP, [place] 00 Q2MIN, Dosing Weight 97.273, kg, PRN [...] 08-29 Route: PO, l 14:01: Drug form: [place] 00 TAB, ONCE, Dosing Weight 97.273, kg, [...] Memori a 08-29 Route: l 14:01: IVP, [place] 00 Q5Min, Dosing Weight 97.273, kg, PRN [...] Memori a 08-29 Route: l 14:01: IVP, [place] 00 Q2MIN, Dosing Weight 97.273, kg, PRN [...] 08-29 Route: PO, l 14:01: Drug form: Amrty 00 TAB, ONCE, Dosing Weight 97.273, kg, [...] oria ne 08-29 Route: l 14:01: IVP, [place] 00 Q5Min, Dosing Weight 97.273, kg, PRN [...] Memori a 08-29 Route: l 14:01: IVP, [place] 00 Q2MIN, Dosing Weight 97.273, kg, PRN [...] 08-29 Route: PO, l 14:01: Drug form: [place] 00 TAB, ONCE, Dosing Weight 97.273, kg, [...] oria ne 08-29 Route: l 14:01: IVP, [place] 00 Q5Min, Dosing Weight 97.273, kg, PRN [...] Memori a 08-29 Route: l 14:01: IVP, [place] 00 Q2MIN, Dosing Weight 97.273, kg, PRN Narcotic Reversal, Start date: 08/29/20 9:01:00 CDT, Duration: 8 doses or times, Stop date: Limited # of times Ondansetron 2020-0 No 4 mg, Memor ia 08-29 Route: l 14:01: IVP, ONCE, [place] 00 Dosing Weight 97.273, kg, PRN Nausea & Vomiting, Start date: 08/29/20 9:01:00 CDT propofol 2020-0 No Route: IV, Mem [...] Drug form: l 10 13:15: INJ, Start [place] microgram date: 08/29/20 8:15:00 CDT, Stop date: 08/29/20 9:15:00 CDT norepinephr 0 No Route: IV, Memoria ine (ANES) 08-29 Drug form: l 10 13:15: INJ, Start [place] microgram date: 08/29/20 8:15:00 CDT, Stop date: 08/29/20 9:15:00 CDT norepinephr 2021-0 No Route: IV, Memoria ine (ANES) - Drug form: l 10 13:15: INJ, Start [place] microgram 00 date: 08/29/20 8:15:00 CDT, Stop date: 08/29/20 9:15:00 CDT norepinephr 2020-0 No Route: IV, Memoria ine (ANES) 08-29 Drug form: l 10 13:15: INJ, Start [place] microgram 00 date: 08/29/20 8:15:00 CDT, Stop date: 08/29/20 9:15:00 CDT norepinephr 2020-0 No Route: IV, Memoria ine (ANES) 08-29 Drug form: l 10 13:15: INJ, Start [place] microgram date: 08/29/20 8:15:00 CDT, Stop date: 08/29/20 9:15:00 CDT norepinephr 2020-0 No Route: IV, Memoria ine (ANES) 08-29 Drug form: l 10 13:15: INJ, Start [place] microgram date: 08/29/20 8:15:00 CDT, Stop date: [...] 4-09 Total l 0.9% IV 12:30: Volume: [place] (ANES) 1000 00 1,000, mL Start date: 08/29/20 7:30:00 CDT, Stop date: 08/29/20 8:30:00 CDT Sodium 2020-0 No Route: IV, Memor ia Chloride 4-09 Total l 0.9% IV 12:30: Volume: [place] (ANES) 1000 00 1,000, mL Start date: 08/29/20 7:30:00 CDT, Stop date: 08/29/20 8:30:00 CDT Sodium 2021-0 No Route: IV, Memor ia Chloride 4-09 Total l 0.9% IV 12:30: Volume: [place] (ANES) 1000 00 1,000, mL Start date: 08/29/20 7:30:00 CDT, Stop date: 08/29/20 8:30:00 CDT Sodium 2021-0 No Route: IV, Memor ia Chloride 4-09 Total l 0.9% IV 12:30: Volume: [place] (ANES) 1000 00 1,000, mL Start date: 08/29/20 7:30:00 CDT, Stop date: 08/29/20 8:30:00 CDT Sodium 2021-0 No Route: IV, Memor ia Chloride 4-09 Total l 0.9% IV 12:30: Volume: [place] (ANES) 1000 00 1,000, mL Start date: [...] PO, l Hydrochlori 11:42: Q24H, # 30 [place] de 150 MG 00 tab, 0 Extended Refill(s) Release Tablet 24 HR Yes 150 mg = 1 Memori a Bupropion 4-09 tab, PO, l Hydrochlori 11:42: Q24H, # 30 [place] de 150 MG 00 tab, 0 Extended Refill(s) Release Tablet 24 HR Yes 150 mg = 1 Memori a Bupropion 4-09 tab, PO, l Hydrochlori 11:42: Q24H, # 30 [place] de 150 MG 00 tab, 0 Extended Refill(s) Release Tablet 24 HR Yes 150 mg = 1 Memori a Bupropion 4-09 tab, PO, l Hydrochlori 11:42: Q24H, # 30 [place] de 150 MG 00 tab, 0 Extended Refill(s) Release Tablet 24 HR Yes 150 mg = 1 Memori a Bupropion 4-09 tab, PO, l Hydrochlori 11:42: Q24H, # 30 [place] de 150 MG 00 tab, 0 Extended Refill(s) Release Tablet 24 HR Yes 150 mg = 1 Memori a Bupropion 4-09 tab, PO, l Hydrochlori 11:42: Q24H, # 30 [place] de 150 MG 00 tab, 0 Extended Refill(s) Release Tablet 24 HR Yes 150 mg = 1 Memori a Bupropion 4-09 tab, PO, l Hydrochlori 11:42: Q24H, # 30 [place] de 150 MG 00 tab, 0 Extended Refill(s) Release Tablet apixaban 5 2021-0 Yes 5 mg, PO, Me moria MG Oral 08-29 Q12H, tab, l Tablet 11:41: 0 [place] [Eliquis] 00 Refill(s), For Atrial Fibrilatio n apixaban 5 2020-0 Yes 5 mg, PO, Me moria MG Oral - Q12H, tab, l Tablet 11:41: 0 [place] [Eliquis] 00 Refill(s), For Atrial Fibrilatio n apixaban 5 2020-0 Yes 5 mg, PO, Me moria MG Oral 08-29 Q12H, tab, l Tablet 11:41: 0 [place] [Eliquis] 00 Refill(s), For Atrial Fibrilatio n apixaban 5 2020-0 Yes 5 mg, PO, Me moria MG Oral 08-29 Q12H, tab, l Tablet 11:41: 0 [place] [Eliquis] 00 Refill(s), For Atrial Fibrilatio n apixaban 5 2020-0 Yes 5 mg, PO, Me moria MG Oral 08-29 Q12H, tab, l Tablet 11:41: 0 [place] [Eliquis] 00 Refill(s), For Atrial Fibrilatio n apixaban 5 2020-0 Yes 5 mg, PO, Me moria MG Oral - Q12H, tab, l Tablet 11:41: 0 [place] [Eliquis] 00 Refill(s), For Atrial Fibrilatio n apixaban 5 2020-0 Yes 5 mg, PO, Me moria MG Oral 08-29 Q12H, tab, l Tablet 11:41: 0 [place] [Eliquis] 00 Refill(s), For Atrial Fibrilatio n AMIODarone 2020-0 Yes 200 mg = 1 M emoria 200 mg oral 4-09 tab, PO, l tablet 11:38: Daily, # [place] 00 90 tab, 3 Refill(s) AMIODarone 2020-0 Yes 200 mg = 1 M emoria 200 mg oral 4-09 tab, PO, l tablet 11:38: Daily, # [place] 00 90 tab, 3 Refill(s) AMIODarone 2020-0 Yes 200 mg = 1 M emoria 200 mg oral 4-09 tab, PO, l tablet 11:38: Daily, # [place] 00 90 tab, 3 Refill(s) AMIODarone 2020-0 Yes 200 mg = 1 M emoria 200 mg oral 4-09 tab, PO, l tablet 11:38: Daily, # [place] 00 90 tab, 3 Refill(s) AMIODarone 2020-0 Yes 200 mg = 1 M emoria 200 mg oral 4-09 tab, PO, l tablet 11:38: Daily, # [place] 00 90 tab, 3 Refill(s) AMIODarone 2020-0 Yes 200 mg = 1 M emoria 200 mg oral 4-09 tab, PO, l tablet 11:38: Daily, # [place] 00 90 tab, 3 Refill(s) AMIODarone 2020-0 [...] 5:29:00 CDT, 2.13, m2, 0 pantoprazol 2020-0 202- No Metho di e 08-29 st (PROTONIX) 00:00: 00:00 Hospit a 40 MG EC 00 :00 l tablet sucralfate 0 2020- No Method i (CARAFATE) 08-29 st [...] [place] on inhaler [facility] albuterol 2020-0 [...] [place]cov[place] ne-Tenofovi 1-21 200 mg-25 [facility] r AF 00:00: mg tablet (Descovy) 00 [...] Filled Immunization Date Status Comments [facility] e Immunization Name Name SARS-COV-2 COVID-19 2022-03-05 [...] [place] 65+ PFIZER COVID-19 2020-07-23 Completed [facility] MRNA VACCINATION 00:00:00 [facility] PFIZER COVID-19 2020-07-23 Completed [facility] MRNA VACCINATION 00:00:00 [facility] PFIZER COVID-19 2020-07-23 Completed [facility] MRNA VACCINATION 00:00:00 [facility] PFIZER COVID-19 2020-07-23 Completed [facility] MRNA VACCINATION 00:00:00 [facility] PFIZER COVID-19 2020-07-23 Completed [facility] MRNA VACCINATION 00:00:00 [facility] PFIZER COVID-19 2020-07-23 Completed [facility] MRNA VACCINATION 00:00:00 [facility] PFIZER COVID-19 2020-07-23 Completed [facility] MRNA VACCINATION 00:00:00 [facility] PFIZER COVID-19 2020-07-23 Completed [facility] MRNA VACCINATION 00:00:00 [facility] PFIZER COVID-19 2020-07-23 Completed [facility] MRNA VACCINATION 00:00:00 [facility] PFIZER COVID-19 2020-07-23 Completed [facility] MRNA VACCINATION 00:00:00 [facility] PFIZER COVID-19 2020-07-23 Completed [facility] MRNA VACCINATION 00:00:00 [facility] PFIZER COVID-19 2020-07-23 Completed [facility] MRNA VACCINATION 00:00:00 [facility] PFIZER COVID-19 2020-07-23 Completed [facility] MRNA VACCINATION 00:00:00 [facility] PFIZER COVID-19 2020-07-23 Completed [facility] MRNA VACCINATION 00:00:00 [facility] PFIZER COVID-19 2020-07-23 Completed [facility] MRNA VACCINATION 00:00:00 [facility] PFIZER COVID-19 2020-07-23 Completed [facility] MRNA VACCINATION 00:00:00 [facility] PFIZER COVID-19 2020-07-23 Completed [facility] MRNA VACCINATION 00:00:00 [facility] PFIZER COVID-19 2020-07-23 Completed [facility] MRNA VACCINATION 00:00:00 [facility] PFIZER COVID-19 2020-07-23 Completed [facility] MRNA VACCINATION 00:00:00 [facility] PFIZER COVID-19 2020-07-23 Completed [facility] MRNA VACCINATION 00:00:00 [facility] PFIZER COVID-19 2020-07-23 Completed [facility] MRNA VACCINATION 00:00:00 [facility] SARS-COV-2 COVID-19 2020-07-23 Completed [facility] PFIZER VACCINE 00:00:00 [facility] SARS-COV-2 COVID-19 2020-07-23 Completed [facility] PFIZER VACCINE 00:00:00 [facility] SARS-COV-2 COVID-19 2020-07-23 Completed [facility] PFIZER VACCINE 00:00:00 [facility] SARS-COV-2 COVID-19 2020-07-23 Completed [facility] PFIZER VACCINE 00:00:00 [facility] SARS-COV-2 COVID-19 2020-07-23 Completed Unive rsity of PFIZER VACCINE 00:00:00 [facility] PFIZER COVID-19 2020-07-23 Completed [facility]RNA VACCINATION 00:00:00 Hospital PFIZER COVID-19 2020-07-02 Completed [facility] M[facility] VACCINATION 00:00:00 Hospital PFIZER COVID-19 2020-07-02 Completed [facility] MRNA VACCINATION 00:00:00 [facility] PFIZER COVID-19 2020-07-02 Completed [facility] MRNA VACCINATION 00:00:00 [facility] PFIZER COVID-19 2020-07-02 Completed [facility] MRNA VACCINATION 00:00:00 [facility] PFIZER COVID-19 2020-07-02 Completed [facility] MRNA VACCINATION 00:00:00 [facility] PFIZER COVID-19 2020-07-02 Completed [facility] MRNA VACCINATION 00:00:00 [facility] PFIZER COVID-19 2020-07-02 Completed [facility] MRNA VACCINATION 00:00:00 [facility] PFIZER COVID-19 2020-07-02 Completed [facility] VACCINATION 00:00:00 [facility] PFIZER COVID-19 2020-07-02 Completed [facility] VACCINATION 00:00:00 [facility] PFIZER COVID-19 2020-07-02 Completed [facility] MRNA VACCINATION 00:00:00 [facility] PFIZER COVID-19 2020-07-02 Completed [facility] MRNA VACCINATION 00:00:00 [facility] PFIZER COVID-19 2020-07-02 Completed [facility] MRNA VACCINATION 00:00:00 [facility] PFIZER COVID-19 2020-07-02 Completed [facility] MRNA VACCINATION 00:00:00 [facility] PFIZER COVID-19 2020-07-02 Completed [facility] MRNA VACCINATION 00:00:00 [facility] PFIZER COVID-19 2020-07-02 Completed [facility]RNA VACCINATION 00:00:00 [facility] PFIZER COVID-19 2020-07-02 Completed [facility] MRNA VACCINATION 00:00:00 [facility] PFIZER COVID-19 2020-07-02 Completed [facility] MRNA VACCINATION 00:00:00 [facility] PFIZER COVID-19 2020-07-02 Completed [facility] MRNA VACCINATION 00:00:00 [facility] PFIZER COVID-19 2020-07-02 Completed [facility] MRNA VACCINATION 00:00:00 [facility] PFIZER COVID-19 2020-07-02 Completed [facility] MRNA VACCINATION 00:00:00 [facility] PFIZER COVID-19 2020-07-02 Completed [facility] MRNA VACCINATION 00:00:00 [facility] SARS-COV-2 COVID-19 2020-07-02 Completed Unive rsity of PFIZER VACCINE 00:00:00 [place] [facility] SARS-COV-2 COVID-19 2020-07-02 Completed Unive rsity of PFIZER VACCINE 00:00:00 [facility] SARS-COV-2 COVID-19 2020-07-02 Completed Unive rsity of PFIZER VACCINE 00:00:00 [facility] SARS-COV-2 COVID-19 2020-07-02 Completed Unive rsity of PFIZER VACCINE 00:00:00 [facility] SARS-COV-2 COVID-19 2020-07-02 Completed Unive rsity of PFIZER VACCINE 00:00:00 [facility] PFIZER COVID-19 2020-07-02 Completed [facility] VACCINATION 00:00:00 [facility] Influenza Virus 2017-03-08 Completed Universit [...] Universit y of Vaccine (3+ yrs) 00:00[facility]00 [facility] Pneumococcal 13 2014-01-30 Completed Universit y of Conjugate, PCV13 00:00:00 [facility] dical (Prevnar 13) Branch Influenza Virus 2014-01-30 Completed Universit y of Vaccine (3+ yrs) 00:00:00 [facility] Branch Pneumococcal 13 2014-01-30 Completed Universit y of Conjugate, PCV13 00:00:00 [facility] dical (Prevnar 13) Branch Influenza Virus 2014-01-30 Completed Universit y of Vaccine (3+ yrs) 00:00:[address] [facility] Pneumococcal 13 2014-01-30 Completed Universit y of Conjugate, PCV13 00:00:00 [place] [facility] (Prevnar 13) Branch Influenza Virus 2014-01-30 Completed Universit y of Vaccine (3+ yrs) 00:00:00 [facility] dical Branch Pneumococcal 13 2014-01-30 Completed Universit y of Conjugate, PCV13 00:00:00 [facility] dical (Prevnar 13) Branch Influenza Virus 2014-01-30 Completed Universit y of Vaccine (3+ yrs) 00:00:00 [facility] dical Branch Pneumococcal 13 2014-01-30 Completed Universit y of Conjugate, PCV13 00:00:00 [facility] dical (Prevnar 13) Branch Influenza Virus 2014-01-30 Completed Universit y of Vaccine (3+ yrs) 00:00:00 [facility] dical Branch Pneumococcal 13 2014-01-30 Completed Universit y of Conjugate, PCV13 00:00:00 [facility] dical (Prevnar 13) Branch Influenza Virus 2014-01-30 Completed Universit y of Vaccine (3+ yrs) 00:00:00 [facility] Pneumococcal 13 2014-01-30 Completed Universit y of Conjugate, PCV13 00:00:00 [facility] dical (Prevnar 13) Branch Influenza Virus 2014-01-30 Completed Universit y of Vaccine (3+ yrs) 00:00:00 [facility] Pneumococcal 13 2014-01-30 Completed Universit y of Conjugate, PCV13 00:00:00 [facility] dical (Prevnar 13) Branch Influenza Virus 2014-01-30 Completed Universit y of Vaccine (3+ yrs) 00:00:00 [facility] Pneumococcal 13 2014-01-30 Completed Universit y of Conjugate, PCV13 00:00:00 [facility] dical (Prevnar 13) Branch Pneumococcal 2012-02-16 Completed University o f Polysaccharide, 00:00:00 [facility] ical PPSV23 (PNEUMOVAX) Branch Influenza Virus 2012-02-16 Completed Universit y of Vaccine 00:00:00 [facility] PPD (TB) 2012-02-16 Completed University of 00:00:00 [facility] Pneumococcal 2012-02-16 Completed University o f Polysaccharide, 00:00:00 [facility] ical PPSV23 (PNEUMOVAX) Branch Influenza Virus [...] 2012-02-16 Completed University o f Polysaccharide, 00:00:00 [place] [facility] PPSV23 (PNEUMOVAX) Branch Influenza Virus 2012-02-16 Completed Universit y of Vaccine 00:00:00 [facility] PPD (TB) 2012-02-16 Completed University of 00:00:00 [facility] Pneumococcal 2012-02-16 Completed University o f Polysaccharide, 00:00:00 [place] [facility] PPSV23 (PNEUMOVAX) Branch Influenza Virus 2012-02-16 Completed Universit y of Vaccine 00:00:00 [facility] PPD (TB) 2012-02-16 Completed University of 00:00:00 [facility] Pneumococcal 2012-02-16 Completed University o f Polysaccharide, 00:00:00 [place] [facility] PPSV23 (PNEUMOVAX) Branch Influenza Virus 2012-02-16 Completed Universit y of Vaccine 00:00:00 [facility] PPD (TB) 2012-02-16 Completed University of 00:00:00 [facility] Pneumococcal 2012-02-16 Completed University o f Polysaccharide, 00:00:00 [place] [facility] PPSV23 (PNEUMOVAX) Branch Influenza Virus 2012-02-16 Completed Universit y of Vaccine 00:00:00 [facility] PPD (TB) 2012-02-16 Completed University of 00:00:00 [facility] Pneumococcal 2012-02-16 Completed University o f Polysaccharide, 00:00:00 [place] [facility] PPSV23 (PNEUMOVAX) Branch Influenza Virus 2012-02-16 Completed Universit y of Vaccine 00:00:00 [facility] PPD (TB) 2012-02-16 Completed University of 00:00:00 [facility] Pneumococcal 2012-02-16 Completed University o f Polysaccharide, 00:00:00 [place] [facility] PPSV23 (PNEUMOVAX) Branch Influenza Virus [...] PPD (TB) 2010-11-18 Completed University of 00:00:[address] [facility] Branch TDAP (ADACEL) 2010-11-18 Completed University of VACCINE 00:00:00 [facility] PPD (TB) 2010-11-18 Completed University of 00:00:[address] [facility] TDAP (ADACEL) 2010-11-18 Completed University of VACCINE 00:00:00 [facility] PPD (TB) 2010-11-18 Completed University of 00:00:[address] [facility] TDAP (ADACEL) 2010-11-18 Completed University of VACCINE 00:00:00 [facility] PPD (TB) 2010-11-18 Completed University of 00:00:[address] [facility] TDAP (ADACEL) 2010-11-18 Completed University of VACCINE 00:00:00 [facility] PPD (TB) 2010-11-18 Completed University of 00:00:[address] [facility] TDAP (ADACEL) 2010-11-18 Completed University of VACCINE [...] of 00:00:[address] [facility] HEPATITIS A 2004-03-02 Completed University of 00:00:[address] [facility] HEPATITIS A 2004-03-02 Completed University of 00:00:[address] [facility] HEPATITIS A 2004-03-02 Completed University of 00:00:[address] [facility] HEPATITIS A 2004-03-02 Completed University of 00:00:[address] [facility] HEPATITIS A 2004-03-02 Completed University of 00:00:[address] [facility] HEPATITIS A 2004-03-02 Completed University of 00:00:[address] [facility] HEPATITIS A 2004-03-02 Completed University of 00:00:[address] [facility] HEPATITIS A 2004-03-02 Completed University [...] 2001-10-04 Completed University o f Polysaccharide, 00:00:00 [place] [facility] PPSV23 (PNEUMOVAX) Branch PPD (TB) 2001-10-04 Completed University of 00:00:00 [facility] Pneumococcal 2001-10-04 Completed University o f Polysaccharide, 00:00:00 [place] [facility] PPSV23 (PNEUMOVAX) Branch PPD (TB) 2001-10-04 Completed University of 00:00:00 [facility] Vital Signs Vital Name Observation Time Observation Value Comments Source Systolic blood 2022-04-22 19:50:00 156 mm[Hg] Univer sity of pressure [facility] Diastolic blood 2022-04-22 19:50:00 89 mm[Hg] Unive rsity of [facility] Heart rate 2022-04-22 19:50:00 69 [facility] 2022-04-22 19:50:00 36.67 Amina [facility] 2022-04-22 19:50:00 17 /min [facility] Body height 2022-04-22 19:50:00 162.6 cm [facility] Body weight 2022-04-22 19:50:00 80.74 kg [facility] BMI 2022-04-22 19:50:00 30.55 kg/m2 [facility] Oxygen saturation in 2022-04-22 19:50:00 96 /min University of Arterial blood by [facility] Pulse oximetry Branch Systolic blood 2022-02-16 21:41:00 169 mm[Hg] Univer sity of [facility] Diastolic blood 2022-02-16 21:41:00 86 mm[Hg] Unive rsity of pressure [facility] Heart rate 2022-02-16 21:41:00 51 /min Universi ty [facility] Body temperature 2022-02-16 21:41:00 36.56 Amina Univ ersity [facility] Respiratory rate 2022-02-16 21:41:00 17 /min [facility] Oxygen saturation in 2022-02-16 21:41:00 98 /min University of Arterial blood by [place] [facility] P[facility] Body height 2022-02-11 16:02:00 162.6 cm Universi ty [facility] Body weight 2022-02-11 16:02:00 79.379 kg Universi ty [facility] BMI 2022-02-11 16:02:00 30.04 kg/m2 Universi ty [facility] Systolic blood 2021-11-20 13:47:00 165 mm[Hg] Univer sity of pressure [facility] Diastolic blood 2021-11-20 13:47:00 83 mm[Hg] Unive rsity of [facility] Heart rate 2021-11-20 13:47:00 58 /min Universi ty [facility] Body temperature 2021-11-20 13:42:00 36.39 Amina [facility] Respiratory rate 2021-11-20 13:42:00 16 /min [facility] Body height 2021-11-20 13:42:00 162.6 cm Universi [facility] Body weight 2021-11-20 13:42:00 84.369 kg Universi ty [facility] BMI 2021-11-20 13:42:00 31.93 kg/m2 Universi [facility] Systolic blood 2021-07-14 15:18:00 142 [...] 2022-03-05 15:23:00 167 mm[Hg] Univer sity of [facility] Diastolic blood 2022-03-05 15:23:00 105 mm[Hg] Unive rsity of [facility] Heart rate 2022-03-05 15:23:00 49 /min Universi ty [facility] Body temperature 2022-03-05 15:18:00 36.67 Amina [facility] Respiratory rate 2022-03-05 15:18:00 18 /min [facility] Body height 2022-03-05 15:18:00 162.6 cm [facility] Body weight 2022-03-05 15:18:00 74.707 kg [facility] BMI 2022-03-05 15:18:00 28.27 kg/m2 [facility] Oxygen saturation in 2022-02-16 21:41:00 98 /min University Arterial blood by [facility] Pulse oximetry Branch Systolic blood 2020-12-08 15:48:00 125 mm[Hg] [facility] pressure Diastolic blood 2020-12-08 15:48:00 76 mm[Hg] [facility] pressure Heart rate 2020-12-08 15:48:00 64 /min [facility] Body temperature 2020-12-08 15:48:00 36.61 Amina [facility] Respiratory rate 2020-12-08 15:48:00 17 /min [facility] Body height 2020-12-08 15:48:00 162.6 cm [facility] Body weight 2020-12-08 15:48:00 98.884 kg [facility] BMI 2020-12-08 15:48:00 37.42 kg/m2 [facility] Oxygen saturation in 2020-12-08 15:48:00 97 /min [facility] Arterial blood by Pulse oximetry Respitory Rate 2020-08-30 13:00:00 [place] Systolic (mm Hg) 2020-08-30 13:00:00 Caesar [place] Diastolic (mm Hg) 2020-08-30 13:00:00 Mem orial [place] Systolic (mm Hg) 2020-08-30 11:00:00 Caesar rial [place] Diastolic (mm Hg) 2020-08-30 11:00:00 Mem o[facility] [place] Temperature Oral (F) 2020-08-30 11:00:00 98.4 F [facility] Respitory Rate 2020-08-30 11:00:00 [facility] [place] Respitory Rate 2020-08-30 10:00:00 [facility] [facility] [place] Systolic (mm Hg) 2020-08-30 10:00:00 Caesar rial [facility] Diastolic (mm Hg) 2020-08-30 10:00:00 Mem orial [place] Temperature Oral (F) 2020-08-30 00:00:00 96.9 F Claude Ferguson Temperature Oral (F) 2020-08-29 11:26:00 97.6 F [facility] Marty Height 2020-08-29 10:30:00 [facility] 2020-08-29 10:30:00 [facility] BMI Calculated 2020-08-29 10:30:00 Darien Hammond Procedures Procedure Date / Time Performing Clinician Source Performed BASIC METABOLIC PANEL (NA, 2022-04-22 21:23:00 Paulette Gray [facility] K, CL, CO2, GLUCOSE, BUN, Medica l Branch CREATININE, [place]) CBC WITH DIFF 2022-04-22 21:23:00 Paulette Gray [facility] CONSENT/REFUSAL FOR 2022-04-22 19:45:46 Doctor Unassigned, [facility] DIAGNOSIS AND TREATMENT [place] [facility] SARS-COV-2 COVID-19 2022-03-05 16:09:27 [facility] DIMITRIS-SUCROSE VACCINE [address] [place] [address] YRS+, BIVALENT 0.3ML, IM, (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) FLU 2022-03-05 16:09:27 [facility] VACC(),65+YR,0.5 Medica l Branch ML,IM,ADJUVANTED,QUAD(FLUA D) MAGNESIUM 2022-02-15 09:41:00 Sofia Garcia [facility] BASIC METABOLIC PANEL (NA, 2022-02-15 09:41:00 Sofia Garcia [facility] K, CL, CO2, GLUCOSE, BUN, Medica l Branch CREATININE, CA) CBC WITH DIFF 2022-02-15 09:41:00 Sofia Garcia [facility] N-TERMINAL PRO-BNP 2022-02-15 09:41:00 Sofia Garcia [facility] CBC WITH DIFF 2022-02-15 09:41:00 Sofia Garcia [facility] BASIC METABOLIC PANEL (NA, 2022-02-15 09:41:00 Radha [facility] K, CL, CO2, GLUCOSE, BUN, Medica l Branch CREATININE, CA) MAGNESIUM 2022-02-15 09:41:00 Radha [facility] N-TERMINAL PRO-BNP 2022-02-15 09:41:00 Sofia Garcia [facility] BASIC METABOLIC PANEL (NA, 2022-02-13 09:40:00 Sofia Garcia [facility] K, CL, CO2, GLUCOSE, BUN, Medica l Branch CREATININE, CA) CBC WITH DIFF 2022-02-13 09:40:00 Radha [facility] BASIC METABOLIC PANEL (NA, 2022-02-13 09:40:00 Radha [facility] K, CL, CO2, GLUCOSE, BUN, Medica l Branch CREATININE, CA) CBC WITH DIFF 2022-02-13 09:40:00 Radha [facility] TROPONIN I 2022-02-11 23:41:00 Radha [facility] N-TERMINAL PRO-BNP 2022-02-11 23:41:00 Radha [facility] TROPONIN I 2022-02-11 23:41:00 Radha [facility] N-TERMINAL PRO-BNP 2022-02-11 23:41:00 Sofia Garcia [facility] HB ECG ROUTINE & RHYTHM 2022-02-11 22:15:36 Sofia Garcia [facility] STRIP [facility] TRANSTHORACIC ECHO (TTE) 2022-02-11 21:26:50 [facility] (TTE) 2022-02-11 21:26:50 [facility]EL[facility] W 2022-02-11 07:45:[address] [facility] CT ABDOMEN PELVIS W 2022-02-11 07:45:43 Reilly Means [facility] RAPID INFLUENZA A/B 2022-02-11 06:54:00 Miguelangel [facility] RAPID INFLUENZA A/B 2022-02-11 06:54:00 Reilly Means [facility] URINALYSIS 2022-02-11 06:45:00 Reilly Means [facility] URINE CULTURE 2022-02-11 06:45:00 Reilly Means [facility] URINALYSIS 2022-02-11 06:45:00 Reilly Means [facility] URINE CULTURE 2022-02-11 06:45:00 Reilly Means [facility] HB ECG ROUTINE & RHYTHM 2022-02-11 05:22:08 Reilly Means [facility] HB ECG ROUTINE & RHYTHM 2022-02-11 05:22:08 Reilly Means [facility] BLOOD CULTURE SCREEN 2022-02-11 04:58:00 Reilly Means [facility] TROPONIN I 2022-02-11 04:58:00 Reilly Means [facility] COMP. METABOLIC PANEL 2022-02-11 04:58:00 [id number] Branch CBC WITH DIFF 2022-02-11 04:58:00 Reilly Means [facility] PROTHROMBIN TIME / INR 2022-02-11 04:58:00 Reilly Means [facility] ACTIVATED PARTIAL THRMPLAS 2022-02-11 04:58:00 Reilly Means [facility] N-TERMINAL PRO-BNP 2022-02-11 04:58:00 Reilly Means [facility] LACTIC ACID WHOLE BLOOD 2022-02-11 04:58:00 Reilly Means [facility] COVID-19 (ID NOW RAPID 2022-02-11 04:58:00 Reilly Means [facility] TESTING) Medical Branch LAB ONLY COVID 2022-02-11 04:58:00 Reilly Means [facility] CBC WITH DIFF 2022-02-11 04:58:00 Reilly Means [facility] ACTIVATED PARTIAL THRMPLAS 2022-02-11 04:58:00 Reilly Means [facility] PROTHROMBIN TIME / INR 2022-02-11 04:58:00 Reilly Means [facility] COVID-19 (ID NOW RAPID 2022-02-11 04:58:00 Reilly Means [facility] TESTING) [facility] [place] COMP. METABOLIC PANEL 2022-02-11 04:58:00 Reilly Means [facility] ([id number]) [facility] [place] TROPONIN I 2022-02-11 04:58:00 Reilly Means [facility] N-TERMINAL PRO-BNP 2022-02-11 04:58:00 Reilly Means [facility] BLOOD CULTURE SCREEN 2022-02-11 04:58:00 Reilly Means [facility] LACTIC ACID WHOLE BLOOD 2022-02-11 04:58:00 Reilly Means [facility] LAB ONLY COVID 2022-02-11 04:58:00 Reilly Means [facility] XR CHEST 1 VW 2022-02-11 04:27:42 Miguelangel Reilly [facility] XR CHEST 1 VW 2022-02-11 04:27:42 Reilly Means [facility] HOSPITAL ADMISSION 2022-02-10 05:01:00 Doctor Unassigned, [facility] Name [facility] HOSPITAL ADMISSION 2022-02-10 05:01:00 Doctor Unassigned, [facility] Name [facility] [place] ECG 12-LEAD 2021-07-14 15:14:00 Elan Lira [facility] [id number] 2021-06-17 00:00:00 RIKY [facility] GASTROINTESTINAL PANEL 2020-12-08 22:21:00 [facility] XR ABDOMEN 1 VW 2020-12-08 18:06:32 Eliseo Arce spijose OR [place] < 1 HOUR 2020-09-05 22:39:00 Eliseo Arce SURGICAL PATHOLOGY REQUEST 2020-09-05 21:54:00 Eliseo Arce [facility] XR CHEST 1 VW PORTABLE 2020-09-05 19:55:00 Eliseo Arce [facility] DISCHARGE PATIENT 2020-09-05 17:27:55 Lucas Harris [facility] [place] AN ELECTIVE 2020-09-05 16:47:23 Kirit Flood [facility] ENDOTRACHEAL AIRWAY EGD, INTRAOPERATIVE 2020-09-05 16:27:00 Eliseo Arce [facility] PARTIAL THROMBOPLASTIN 2020-09-05 [facility] TIME (PTT[facility] M. PROTHROMBIN TIME WITH INR 2020-09-05 15:04:00 Mindy Maharaj [facility] M. Plan of Care Planned Activity Planned Date Details Comments Source Future Scheduled 2022-03-25 SHINGLES VACCINES (1 Met [facility] Test 14:48:42 of 2) [code = SHINGLES VACCINES (1 of 2)] Future Scheduled 2022-03-25 BREAST CANCER [facility] Test 14:48:42 SCREENING [code = BREAST CANCER SCREENING] Future Scheduled 2022-03-25 COLONOSCOPY SCREENING [facility] Test 14:48:42 [code = COLONOSCOPY SCREENING] Future Scheduled 2022-03-25 HEPATITIS B VACCINES Met [facility] Test 14:48:42 (1 of 3 - Risk 3-dose series) [code = HEPATITIS B VACCINES (1 of 3 - Risk 3-dose series)] Future Scheduled 2022-03-25 COVID-19 VACCINE (3 - [facility] Test 14:48:42 Booster for Pfizer series) [code = COVID-19 VACCINE (3 - Booster for Pfizer series)] Future Scheduled 2022-03-25 65+ PNEUMOCOCCAL [facility] Test 14:48:42 VACCINE (4 - PPSV23 if available, else PCV20) [code = 65+ PNEUMOCOCCAL VACCINE (4 - PPSV23 if available, else PCV20)] Future Scheduled 2022-03-25 INFLUENZA VACCINE [facility] Test 14:48:42 [code = INFLUENZA VACCINE] Future Scheduled 2022-03-25 SHINGLES VACCINES (1 Met [facility] Test 14:48:42 of 2) [code = SHINGLES VACCINES (1 of 2)] Future Scheduled 2022-03-25 BREAST CANCER [facility] Test 14:48:42 SCREENING [code = BREAST CANCER SCREENING] Future Scheduled 2022-03-25 [facility]COPY [facility] 14:48:42 [code = COLONOSCOPY SCREENING] Future Scheduled 2022-03-25 HEPATITIS B VACCINES Met [facility] Test 14:48:42 (1 of 3 - Risk 3-dose series) [code = HEPATITIS B VACCINES (1 of 3 - Risk 3-dose series)] Future Scheduled 2022-03-25 COVID-19 VACCINE (3 - [facility] Test 14:48:42 Booster for Pfizer series) [code = COVID-19 VACCINE (3 - Booster for Pfizer series)] Future Scheduled 2022-03-25 65+ [facility]CCAL [facility] 14:48:42 VACCINE (4 - PPSV23 if available, else PCV20) [code = 65+ PNEUMOCOCCAL VACCINE (4 - PPSV23 if available, else PCV20)] Future Scheduled 2022-03-25 INFLUENZA VACCINE [facility] Test 14:48:42 [code = INFLUENZA VACCINE] Future Scheduled 2022-03-25 SHINGLES VACCINES (1 Met [facility] Test 14:48:42 of 2) [code = SHINGLES VACCINES (1 of 2)] Future Scheduled 2022-03-25 BREAST CANCER [facility] Test 14:48:42 SCREENING [code = BREAST CANCER SCREENING] Future Scheduled 2022-03-25 COLONOSCOPY SCREENING [facility] Test 14:48:42 [code = COLONOSCOPY SCREENING] Future Scheduled 2022-03-25 HEPATITIS B VACCINES Met [facility] Test 14:48:42 (1 of 3 - Risk 3-dose series) [code = HEPATITIS B VACCINES (1 of 3 - Risk 3-dose series)] Future Scheduled 2022-03-25 COVID-19 VACCINE (3 - Me [facility] Test 14:48:42 Booster for Pfizer series) [code = COVID-19 VACCINE (3 - Booster for Pfizer series)] Future Scheduled 2022-03-25 65+ [facility]AL [facility] Test 14:48:42 VACCINE (4 - PPSV23 if available, else PCV20) [code = 65+ PNEUMOCOCCAL VACCINE (4 - PPSV23 if available, else PCV20)] Future Scheduled 2022-03-25 INFLUENZA VACCINE [facility] Test 14:48:42 [code = INFLUENZA VACCINE] Future Scheduled 2022-03-25 SHINGLES VACCINES (1 Met [facility] Test 14:48:42 of 2) [code = SHINGLES VACCINES (1 of 2)] Future Scheduled 2022-03-25 BREAST CANCER [facility] Test 14:48:42 SCREENING [code = BREAST CANCER SCREENING] Future Scheduled 2022-03-25 COLONOSCOPY SCREENING [facility] Test 14:48:42 [code = COLONOSCOPY SCREENING] Future Scheduled 2022-03-25 HEPATITIS B VACCINES Met [facility] Test 14:48:42 (1 of 3 - Risk 3-dose series) [code = HEPATITIS B VACCINES (1 of 3 - Risk 3-dose series)] Future Scheduled 2022-03-25 COVID-19 VACCINE (3 - Me [facility] Test 14:48:42 Booster for Pfizer series) [code = COVID-19 VACCINE (3 - Booster for Pfizer series)] Future Scheduled 2022-03-25 65+ [facility] 14:48:42 VACCINE (4 - PPSV23 if available, else PCV20) [code = 65+ PNEUMOCOCCAL VACCINE (4 - PPSV23 if available, else PCV20)] Future Scheduled 2022-03-25 INFLUENZA VACCINE [facility] Test 14:48:42 [code = INFLUENZA VACCINE] Future Scheduled 2022-03-25 SHINGLES VACCINES (1 Met [facility] Test 14:48:42 of 2) [code = SHINGLES VACCINES (1 of 2)] Future Scheduled 2022-03-25 BREAST CANCER [facility] Test 14:48:42 SCREENING [code = BREAST CANCER SCREENING] Future Scheduled 2022-03-25 COLONOSCOPY SCREENING [facility] Test 14:48:42 [code = COLONOSCOPY SCREENING] Future Scheduled 2022-03-25 HEPATITIS B VACCINES Met [facility] Test 14:48:42 (1 of 3 - Risk 3-dose series) [code = HEPATITIS B VACCINES (1 of 3 - Risk 3-dose series)] Future Scheduled 2022-03-25 COVID-19 VACCINE (3 - [facility] Test 14:48:42 Booster for Pfizer series) [code = COVID-19 VACCINE (3 - Booster for Pfizer series)] Future Scheduled 2022-03-25 65+ [facility] 14:48:42 VACCINE (4 - PPSV23 if available, else PCV20) [code = 65+ PNEUMOCOCCAL VACCINE (4 - PPSV23 if available, else PCV20)] Future Scheduled 2022-03-25 INFLUENZA VACCINE [facility] Test 14:48:42 [code = INFLUENZA VACCINE] Future Scheduled 2022-03-25 SHINGLES VACCINES (1 Met [facility] Test 14:48:42 of 2) [code = SHINGLES VACCINES (1 of 2)] Future Scheduled 2022-03-25 BREAST CANCER [facility] Test 14:48:42 SCREENING [code = BREAST CANCER SCREENING] Future Scheduled 2022-03-25 COLONOSCOPY SCREENING [facility] Test 14:48:42 [code = COLONOSCOPY SCREENING] Future Scheduled 2022-03-25 HEPATITIS B VACCINES Met [facility] Test 14:48:42 (1 of 3 - Risk 3-dose series) [code = HEPATITIS B VACCINES (1 of 3 - Risk 3-dose series)] Future Scheduled 2022-03-25 COVID-19 VACCINE (3 - [facility] Test 14:48:42 Booster for Pfizer series) [code = COVID-19 VACCINE (3 - Booster for Pfizer series)] Future Scheduled 2022-03-25 65+ [facility] 14:48:42 VACCINE (4 - PPSV23 if available, else PCV20) [code = 65+ PNEUMOCOCCAL VACCINE (4 - PPSV23 if available, else PCV20)] Future Scheduled 2022-03-25 INFLUENZA VACCINE [facility] Test 14:48:42 [code = INFLUENZA VACCINE] Future Scheduled 2022-03-25 SHINGLES VACCINES (1 Met [facility] Test 14:48:42 of 2) [code = SHINGLES VACCINES (1 of 2)] Future Scheduled 2022-03-25 BREAST CANCER [facility] Test 14:48:42 SCREENING [code = BREAST CANCER SCREENING] Future Scheduled 2022-03-25 COLONOSCOPY SCREENING [facility] Test 14:48:42 [code = COLONOSCOPY SCREENING] Future Scheduled 2022-03-25 HEPATITIS B VACCINES Met [facility] Test 14:48:42 (1 of 3 - Risk 3-dose series) [code = HEPATITIS B VACCINES (1 of 3 - Risk 3-dose series)] Future Scheduled 2022-03-25 COVID-19 VACCINE (3 - [facility] Test 14:48:42 Booster for Pfizer series) [code = COVID-19 VACCINE (3 - Booster for Pfizer series)] Future Scheduled 2022-03-25 65+ [facility] 14:48:42 VACCINE (4 - PPSV23 if available, else PCV20) [code = 65+ PNEUMOCOCCAL VACCINE (4 - PPSV23 if available, else PCV20)] Future Scheduled 2022-03-25 INFLUENZA VACCINE Method [facility] Test 14:48:42 [code = INFLUENZA VACCINE] Future Scheduled 2022-03-25 SHINGLES VACCINES (1 Met [facility] Test 14:48:42 of 2) [code = SHINGLES VACCINES (1 of 2)] Future Scheduled 2022-03-25 BREAST CANCER [facility] Test 14:48:42 SCREENING [code = BREAST CANCER SCREENING] Future Scheduled 2022-03-25 COLONOSCOPY SCREENING [facility] Test 14:48:42 [code = COLONOSCOPY SCREENING] Future Scheduled 2022-03-25 HEPATITIS B VACCINES Met [facility] Test 14:48:42 (1 of 3 - Risk 3-dose series) [code = HEPATITIS B VACCINES (1 of 3 - Risk 3-dose series)] Future Scheduled 2022-03-25 COVID-19 VACCINE (3 - [facility] Test 14:48:42 Booster for Pfizer series) [code = COVID-19 VACCINE (3 - Booster for Pfizer series)] Future Scheduled 2022-03-25 65+ PNEUMOCOCCAL [facility] Test 14:48:42 VACCINE (4 - PPSV23 if available, else PCV20) [code = 65+ PNEUMOCOCCAL VACCINE (4 - PPSV23 if available, else PCV20)] Future Scheduled 2022-03-25 INFLUENZA VACCINE Method [facility] Test 14:48:42 [code = INFLUENZA VACCINE] Future Scheduled 2022-03-25 SHINGLES VACCINES (1 Met [facility] Test 14:48:42 of 2) [code = SHINGLES VACCINES (1 of 2)] Future Scheduled 2022-03-25 BREAST CANCER [facility] Test 14:48:42 SCREENING [code = BREAST CANCER SCREENING] Future Scheduled 2022-03-25 COLONOSCOPY SCREENING [facility] Test 14:48:42 [code = COLONOSCOPY SCREENING] Future Scheduled 2022-03-25 HEPATITIS B VACCINES Met [facility] Test 14:48:42 (1 of 3 - Risk 3-dose series) [code = HEPATITIS B VACCINES (1 of 3 - Risk 3-dose series)] Future Scheduled 2022-03-25 COVID-19 VACCINE (3 - Me [facility] Test 14:48:42 Booster for Pfizer series) [code = COVID-19 VACCINE (3 - Booster for Pfizer series)] Future Scheduled 2022-03-25 65+ [facility]CCAL [facility] 14:48:42 VACCINE (4 - PPSV23 if available, else PCV20) [code = 65+ PNEUMOCOCCAL VACCINE (4 - PPSV23 if available, else PCV20)] Future Scheduled 2022-03-25 INFLUENZA VACCINE [facility] Test 14:48:42 [code = INFLUENZA VACCINE] Future Scheduled 2022-03-04 SHINGLES VACCINES (1 Met [facility] Test 14:03:57 of 2) [code = SHINGLES VACCINES (1 of 2)] Future Scheduled 2022-03-04 BREAST CANCER [facility] Test 14:03:57 SCREENING [code = BREAST CANCER SCREENING] Future Scheduled 2022-03-04 COLONOSCOPY SCREENING [facility] Test 14:03:57 [code = COLONOSCOPY SCREENING] Future Scheduled 2022-03-04 HEPATITIS B VACCINES Met [facility] Test 14:03:57 (1 of 3 - Risk 3-dose series) [code = HEPATITIS B VACCINES (1 of 3 - Risk 3-dose series)] Future Scheduled 2022-03-04 COVID-19 VACCINE (3 - [facility] Test 14:03:57 Booster for Pfizer series) [code = COVID-19 VACCINE (3 - Booster for Pfizer series)] Future Scheduled 2022-03-04 65+ PNEUMOCOCCAL [facility] Test 14:03:57 VACCINE (4 - PPSV23 if available, else PCV20) [code = 65+ PNEUMOCOCCAL VACCINE (4 - PPSV23 if available, else PCV20)] Future Scheduled 2022-03-04 INFLUENZA VACCINE [facility] Test 14:03:57 [code = INFLUENZA VACCINE] Future Scheduled 2022-03-04 SHINGLES VACCINES (1 Met [facility] Test 14:03:57 of 2) [code = SHINGLES VACCINES (1 of 2)] Future Scheduled 2022-03-04 BREAST CANCER [facility] Test 14:03:57 SCREENING [code = BREAST CANCER SCREENING] Future Scheduled 2022-03-04 COLONOSCOPY SCREENING [facility] Test 14:03:57 [code = COLONOSCOPY SCREENING] Future Scheduled 2022-03-04 HEPATITIS B VACCINES Met [facility] Test 14:03:57 (1 of 3 - Risk 3-dose series) [code = HEPATITIS B VACCINES (1 of 3 - Risk 3-dose series)] Future Scheduled 2022-03-04 COVID-19 VACCINE (3 - [facility] Test 14:03:57 Booster for Pfizer series) [code = COVID-19 VACCINE (3 - Booster for Pfizer series)] Future Scheduled 2022-03-04 65+ PNEUMOCOCCAL [facility] Test 14:03:57 VACCINE (4 - PPSV23 if available, else PCV20) [code = 65+ PNEUMOCOCCAL VACCINE (4 - PPSV23 if available, else PCV20)] Future Scheduled 2022-03-04 INFLUENZA VACCINE [facility] Test 14:03:57 [code = INFLUENZA VACCINE] Future Scheduled 2022-03-04 SHINGLES VACCINES (1 Met [facility] Test 14:03:57 of 2) [code = SHINGLES VACCINES (1 of 2)] Future Scheduled 2022-03-04 BREAST CANCER [facility] Test 14:03:57 SCREENING [code = BREAST CANCER SCREENING] Future Scheduled 2022-03-04 COLONOSCOPY SCREENING [facility] Test 14:03:57 [code = COLONOSCOPY SCREENING] Future Scheduled 2022-03-04 HEPATITIS B VACCINES Met [facility] Test 14:03:57 (1 of 3 - Risk 3-dose series) [code = HEPATITIS B VACCINES (1 of 3 - Risk 3-dose series)] Future Scheduled 2022-03-04 COVID-19 VACCINE (3 - [facility] Test 14:03:57 Booster for Pfizer series) [code = COVID-19 VACCINE (3 - Booster for Pfizer series)] Future Scheduled 2022-03-04 65+ [facility]AL [facility] Test 14:03:57 VACCINE (4 - PPSV23 if available, else PCV20) [code = 65+ PNEUMOCOCCAL VACCINE (4 - PPSV23 if available, else PCV20)] Future Scheduled 2022-03-04 INFLUENZA VACCINE [facility] Test 14:03:57 [code = INFLUENZA VACCINE] Future Scheduled 2022-03-04 SHINGLES VACCINES (1 Met [facility] Test 14:03:57 of 2) [code = SHINGLES VACCINES (1 of 2)] Future Scheduled 2022-03-04 BREAST CANCER [facility] Test 14:03:57 SCREENING [code = BREAST CANCER SCREENING] Future Scheduled 2022-03-04 COLONOSCOPY SCREENING [facility] Test 14:03:57 [code = COLONOSCOPY SCREENING] Future Scheduled 2022-03-04 HEPATITIS B VACCINES Met [facility] Test 14:03:57 (1 of 3 - Risk 3-dose series) [code = HEPATITIS B VACCINES (1 of 3 - Risk 3-dose series)] Future Scheduled 2022-03-04 COVID-19 VACCINE (3 - Me [facility] Test 14:03:57 Booster for Pfizer series) [code = COVID-19 VACCINE (3 - Booster for Pfizer series)] Future Scheduled 2022-03-04 65+ [facility]CCAL [facility] Test 14:03:57 VACCINE (4 - PPSV23 if available, else PCV20) [code = 65+ PNEUMOCOCCAL VACCINE (4 - PPSV23 if available, else PCV20)] Future Scheduled 2022-03-04 INFLUENZA VACCINE [facility] Test 14:03:57 [code = INFLUENZA VACCINE] Future Scheduled 2022-02-11 SHINGLES VACCINES (1 Met [facility] Test 13:39:12 of 2) [code = SHINGLES VACCINES (1 of 2)] Future Scheduled 2022-02-11 BREAST CANCER [facility] Test 13:39:12 SCREENING [code = BREAST CANCER SCREENING] Future Scheduled 2022-02-11 COLONOSCOPY SCREENING [facility] Test 13:39:12 [code = COLONOSCOPY SCREENING] Future Scheduled 2022-02-11 HEPATITIS B VACCINES Met [facility] Test 13:39:12 (1 of 3 - Risk 3-dose series) [code = HEPATITIS B VACCINES (1 of 3 - Risk 3-dose series)] Future Scheduled 2022-02-11 COVID-19 VACCINE (3 - [facility] Test 13:39:12 Booster for Pfizer series) [code = COVID-19 VACCINE (3 - Booster for Pfizer series)] Future Scheduled 2022-02-11 65+ [facility] 13:39:12 VACCINE (4 - PPSV23 or PCV20) [code = 65+ PNEUMOCOCCAL VACCINE (4 - PPSV23 or PCV20)] Future Scheduled 2022-02-11 INFLUENZA VACCINE [facility] Test 13:39:12 [code = INFLUENZA VACCINE] Future Scheduled 2022-01-29 SHINGLES VACCINES (1 Met [facility] Test 14:07:20 of 2) [code = SHINGLES VACCINES (1 of 2)] Future Scheduled 2022-01-29 BREAST CANCER [facility] Test 14:07:20 SCREENING [code = BREAST CANCER SCREENING] Future Scheduled 2022-01-29 COLONOSCOPY SCREENING [facility] Test 14:07:20 [code = COLONOSCOPY SCREENING] Future Scheduled 2022-01-29 HEPATITIS B VACCINES Met [facility] Test 14:07:20 (1 of 3 - Risk 3-dose series) [code = HEPATITIS B VACCINES (1 of 3 - Risk 3-dose series)] Future Scheduled 2022-01-29 COVID-19 VACCINE (3 - [facility] Test 14:07:20 Booster for Pfizer series) [code = COVID-19 VACCINE (3 - Booster for Pfizer series)] Future Scheduled 2022-01-29 65+ PNEUMOCOCCAL [facility] Test 14:07:20 VACCINE (4 - PPSV23 or PCV20) [code = 65+ PNEUMOCOCCAL VACCINE (4 - PPSV23 or PCV20)] Future Scheduled 2022-01-29 INFLUENZA VACCINE [facility] Test 14:07:20 [code = INFLUENZA VACCINE] Future Scheduled 2022-01-29 SHINGLES VACCINES (1 Met [facility] Test 14:07:20 of 2) [code = SHINGLES VACCINES (1 of 2)] Future Scheduled 2022-01-29 BREAST CANCER [facility] Test 14:07:20 SCREENING [code = BREAST CANCER SCREENING] Future Scheduled 2022-01-29 COLONOSCOPY SCREENING [facility] Test 14:07:20 [code = COLONOSCOPY SCREENING] Future Scheduled 2022-01-29 HEPATITIS B VACCINES Met [facility] Test 14:07:20 (1 of 3 - Risk 3-dose series) [code = HEPATITIS B VACCINES (1 of 3 - Risk 3-dose series)] Future Scheduled 2022-01-29 COVID-19 VACCINE (3 - [facility] Test 14:07:20 Booster for Pfizer series) [code = COVID-19 VACCINE (3 - Booster for Pfizer series)] Future Scheduled 2022-01-29 65+ PNEUMOCOCCAL [facility] Test 14:07:20 VACCINE (4 - PPSV23 or PCV20) [code = 65+ PNEUMOCOCCAL VACCINE (4 - PPSV23 or PCV20)] Future Scheduled 2022-01-29 INFLUENZA VACCINE Method [facility] Test 14:07:20 [code = INFLUENZA VACCINE] Future Scheduled 2022-01-29 SHINGLES VACCINES (1 Met [facility] Test 14:07:20 of 2) [code = SHINGLES VACCINES (1 of 2)] Future Scheduled 2022-01-29 BREAST CANCER [facility] Test 14:07:20 SCREENING [code = BREAST CANCER SCREENING] Future Scheduled 2022-01-29 COLONOSCOPY SCREENING [facility] Test 14:07:20 [code = COLONOSCOPY SCREENING] Future Scheduled 2022-01-29 HEPATITIS B VACCINES Met [facility] Test 14:07:20 (1 of 3 - Risk 3-dose series) [code = HEPATITIS B VACCINES (1 of 3 - Risk 3-dose series)] Future Scheduled 2022-01-29 COVID-19 VACCINE (3 - [facility] Test 14:07:20 Booster for Pfizer series) [code = COVID-19 VACCINE (3 - Booster for Pfizer series)] Future Scheduled 2022-01-29 65+ PNEUMOCOCCAL [facility] Test 14:07:20 VACCINE (4 - PPSV23 or PCV20) [code = 65+ PNEUMOCOCCAL VACCINE (4 - PPSV23 or PCV20)] Future Scheduled 2022-01-29 INFLUENZA VACCINE Method [facility] Test 14:07:20 [code = INFLUENZA VACCINE] Future Scheduled 2022-01-29 SHINGLES VACCINES (1 Met [facility] Test 14:07:20 of 2) [code = SHINGLES VACCINES (1 of 2)] Future Scheduled 2022-01-29 BREAST CANCER [facility] Test 14:07:20 SCREENING [code = BREAST CANCER SCREENING] Future Scheduled 2022-01-29 COLONOSCOPY SCREENING [facility] Test 14:07:20 [code = COLONOSCOPY SCREENING] Future Scheduled 2022-01-29 HEPATITIS B VACCINES Met [facility] Test 14:07:20 (1 of 3 - Risk 3-dose series) [code = HEPATITIS B VACCINES (1 of 3 - Risk 3-dose series)] Future Scheduled 2022-01-29 COVID-19 VACCINE (3 - [facility] Test 14:07:20 Booster for Pfizer series) [code = COVID-19 VACCINE (3 - Booster for Pfizer series)] Future Scheduled 2022-01-29 65+ PNEUMOCOCCAL [facility] Test 14:07:20 VACCINE (4 - PPSV23 or PCV20) [code = 65+ PNEUMOCOCCAL VACCINE (4 - PPSV23 or PCV20)] Future Scheduled 2022-01-29 INFLUENZA VACCINE Method [facility] Test 14:07:20 [code = INFLUENZA VACCINE] Future Scheduled 2022-01-20 SHINGLES VACCINES (1 Met [facility] Test 06:12:34 of 2) [code = SHINGLES VACCINES (1 of 2)] Future Scheduled 2022-01-20 Screening for [facility] Test 06:12:34 malignant neoplasm of cervix (procedure) [code = [id number]] Future Scheduled 2022-01-20 BREAST CANCER [facility] Test 06:12:34 SCREENING [code = BREAST CANCER SCREENING] Future Scheduled 2022-01-20 COLONOSCOPY SCREENING [facility] Test 06:12:34 [code = COLONOSCOPY SCREENING] Future Scheduled 2022-01-20 HEPATITIS B VACCINES Met [facility] Test 06:12:34 (1 of 3 - Risk 3-dose series) [code = HEPATITIS B VACCINES (1 of 3 - Risk 3-dose series)] Future Scheduled 2022-01-20 COVID-19 VACCINE (3 - [facility] Test 06:12:34 Booster for Pfizer series) [code = COVID-19 VACCINE (3 - Booster for Pfizer series)] Future Scheduled 2022-01-20 65+ PNEUMOCOCCAL [facility] Test 06:12:34 VACCINE (4 - PPSV23 or PCV20) [code = 65+ PNEUMOCOCCAL VACCINE (4 - PPSV23 or PCV20)] Future Scheduled 2022-01-20 INFLUENZA VACCINE Method [facility] Test 06:12:34 [code = INFLUENZA VACCINE] Future Scheduled 2022-01-16 SHINGLES VACCINES (1 Met [facility] Test 12:09:25 of 2) [code = SHINGLES VACCINES (1 of 2)] Future Scheduled 2022-01-16 Screening for [facility] Test 12:09:25 malignant neoplasm of cervix (procedure) [code = [id number]] Future Scheduled 2022-01-16 BREAST CANCER [facility] Test 12:09:25 SCREENING [code = BREAST CANCER SCREENING] Future Scheduled 2022-01-16 COLONOSCOPY SCREENING [facility] Test 12:09:25 [code = COLONOSCOPY SCREENING] Future Scheduled 2022-01-16 HEPATITIS B VACCINES Met [facility] Test 12:09:25 (1 of 3 - Risk 3-dose series) [code = HEPATITIS B VACCINES (1 of 3 - Risk 3-dose series)] Future Scheduled 2022-01-16 COVID-19 VACCINE (3 - [facility] Test 12:09:25 Booster for Pfizer series) [code = COVID-19 VACCINE (3 - Booster for Pfizer series)] Future Scheduled 2022-01-16 65+ PNEUMOCOCCAL [facility] Test 12:09:25 VACCINE (4 - PPSV23 or PCV20) [code = 65+ PNEUMOCOCCAL VACCINE (4 - PPSV23 or PCV20)] Future Scheduled 2022-01-16 INFLUENZA VACCINE [facility] Test 12:09:25 [code = INFLUENZA VACCINE] Future Scheduled 2022-01-14 SHINGLES VACCINES (1 Met [facility] Test 04:11:46 of 2) [code = SHINGLES VACCINES (1 of 2)] Future Scheduled 2022-01-14 Screening for [facility] Test 04:11:46 malignant neoplasm of cervix (procedure) [code = [id number]] Future Scheduled 2022-01-14 BREAST CANCER [facility] Test 04:11:46 SCREENING [code = BREAST CANCER SCREENING] Future Scheduled 2022-01-14 COLONOSCOPY SCREENING [facility] Test 04:11:46 [code = COLONOSCOPY SCREENING] Future Scheduled 2022-01-14 HEPATITIS B VACCINES Met [facility] Test 04:11:46 (1 of 3 - Risk 3-dose series) [code = HEPATITIS B VACCINES (1 of 3 - Risk 3-dose series)] Future Scheduled 2022-01-14 COVID-19 VACCINE (3 - [facility] Test 04:11:46 Booster for Pfizer series) [code = COVID-19 VACCINE (3 - Booster for Pfizer series)] Future Scheduled 2022-01-14 65+ PNEUMOCOCCAL [facility] Test 04:11:46 VACCINE (4 - PPSV23 or PCV20) [code = 65+ PNEUMOCOCCAL VACCINE (4 - PPSV23 or PCV20)] Future Scheduled 2022-01-14 INFLUENZA VACCINE Method [facility] Test 04:11:46 [code = INFLUENZA VACCINE] Future Scheduled 2021-08-26 Screening for [facility] Test 13:02:23 malignant neoplasm of cervix (procedure) [code = [id number]] Future Scheduled 2021-08-26 BREAST CANCER [facility] Test 13:02:23 SCREENING [code = BREAST CANCER SCREENING] Future Scheduled 2021-08-26 COLONOSCOPY SCREENING [facility] Test 13:02:23 [code = COLONOSCOPY SCREENING] Future Scheduled 2021-08-26 Screening for [facility] Test 13:02:23 malignant neoplasm of lung (procedure) [code = [id number]] Future Scheduled 2021-08-26 SHINGLES VACCINES (#1) M [facility] Test 13:02:23 [code = SHINGLES VACCINES (#1)] Future Scheduled 2021-08-26 COVID-19 VACCINE (3 - [facility] Test 13:02:23 Pfizer risk 4-dose series) [code = COVID-19 VACCINE (3 - Pfizer risk 4-dose series)] Future Scheduled 2021-08-26 65+ [facility] 13:02:23 VACCINE (4 of 4 - PPSV23) [code = 65+ PNEUMOCOCCAL VACCINE (4 of 4 - PPSV23)] Future Scheduled 2021-08-26 INFLUENZA VACCINE [facility] Test 13:02:23 [code = INFLUENZA VACCINE] Encounters Start End Encounter Admission Attending Care Care Encounter Source Date/Time Date/Time Type Type Clinicians Facility Department ID 2022-02-18 Outpatient [place] [id number] [place] 14:30:[address] [place] [address] 2021-07-14 Outpatient SADIKOVIC, [facility] [id number] [place] 09:33:51 [facility] 2021-06-02 Outpatient HEMATPOUR, [facility] [id number] [place] 13:58:59 [facility] 2021-04-28 Outpatient HEMATPOUR, [facility] [id number] [place] 11:21:22 [facility] 2021-03-20 Emergency [facility] [id number] [facility]12 Outpatient HEMATPOUR, [facility] [id number] [place] 08:16:46 [facility] 2020-10-31 Outpatient HEMATPOUR, [facility] [id number] [place] 09:44:50 [facility] 2020-09-30 Outpatient HEMATPOUR, [facility] [id number] [place] 13:16:03 BEVERLY peterson 2022-04-22 2022-04-22 Emergency X ISAAC [facility] ERT [id number] Univers 13:55:00 17:00:00 PAULETTE raheemcharlie [facility] 2022-04-22 2022-04-22 [facility] [id number] Univers 13:55:00 17:00:00 Paulette Gonzales WACO [id number] i ty [facility] [id number] [facility] [id number] [facility] 084 [place] 2022-04-07 2022-04-07 [facility] [id number] Univers 20:40:00 20:40:00 ATTENDING ity [facility] 2022-04-07 2022-04-07 Telephone Devin, [id number] Univers 00:00:00 00:00:00 Robbi Hairston [id number] i ty of [id number] [facility] .8 [place] 2022-03-05 2022-03-05 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 [employer]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 Santiago Cardenas [id number] Univers 13:45:00 14:00:00 Visit [facility] 00202.1.1 ity of 3.104.2.7 [place] .3.493620 Medica l .8 [place] 2022-03-05 2022-03-05 [facility] [id number] Univers 13:45:00 13:45:00 SANTIAGO barbosa [facility] 2022-03-05 2022-03-05 Office Ronald, 1.2.840.6 [id number] Univers 13:00:00 13:30:00 Visit Santiago 34298.1.1 ity of 3.104.2.7 [place] .3.483074 Medica l .8 [place] 2022-02-26 2022-02-26 [facility] [id number] Univers 08:30:00 08:30:00 SANTIAGO barbosa [facility] 2022-02-26 2022-02-26 Outpatient R RONALD, [facility] [id number] Univers 08:30:00 08:30:00 SANTIAGO ity of [facility] 2022-02-17 2022-02-17 Transition Stevo, 1.2.840.4 [id number] Univers 00:00:00 00:00:00 of Care Isaias Maria Elena 88279.1.1 it y of 3.104.2.7 [place] .3.328003 Medica l .8 [place] 2022-02-10 2022-02-16 Inpatient X FRANK [facility] FAVIO [id number] Univers 22:59:00 19:27:00 TOMY ity [facility] 2022-02-10 2022-02-16 Hospital Reilly Means 1.2.840.1 [id number] Univers 22:59:00 19:27:00 Encounter Ofe Shields 26665.1.1 ity of [place].2.7 [place] .3.892551 Medica l .8 [place] 2022-02-11 2022-02-11 Telephone East, 1.2.840.4 [id number] [id number] Univers 00:00:00 00:00:00 [place] 97935.1.1 ity of 3.104.2.7 [place] .3.872958 Medica l .8 [place] 2022-02-10 2022-02-10 Travel 1.2.840.1 1.2.558.904 2546 [id number] Univers 00:00:00 00:00:00 22655.1.1 350.1.13.10 ity of 3.104.2.7 4.[place].7.3.698 [place] .3.776741 084.8 Medica l .8 [place] 2022-01-30 2022-01-30 Telephone East, 1.2.840.0 [id number] [id number] Univers 00:00:00 00:00:00 [place] 85875.1.1 ity of 3.104.2.7 [place] .3.345841 Medica l .8 [place] 2022-01-06 2022-01-06 Orders Doctor FERMIN 1.2.840.114 [id number] Univers 00:00:00 00:00:00 Only Unassigned, JACKELINE 350.1.13.10 ity of [place] 4.2.7.2.686 Yomi as [id number] [facility] 009 [place] 2021-12-25 2021-12-25 Orders Doctor FERMIN 1.2.840.114 [id number] Univers 00:00:00 00:00:00 Only Unassigned, JACKELINE 350.1.13.10 ity of [place] [facility] 4.2.7.2.686 Yomi as [id number] [facility] 009 [place] 2021-12-12 2021-12-13 Emergency X Bill COLES [facility] ERT [id number] Univers 23:53:00 01:52:00 ity of [facility] 2021-12-12 2021-12-13 Emergency Bill Coles [facility] 1.2.840.114 95 [id number] Univers 23:53:00 01:52:00 Kiersten BULLOCK 350.1.13.10 i ty of [place] CARP[place] [id number] [facility] 084 [place] 2021-11-20 2021-11-20 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 Finisher [facility] UNIVERSIT 1.2.840.114 9 [id number] Univers 09:45:00 10:00:00 Visit [facility] 350.1.13.10 ity of [place] [id number] [facility] 316 Branch 2021-11-20 2021-11-20 Office [facility] 1.2.528.095 3944 9084 Univers 08:30:00 09:00:00 Visit [facility] 350.1.13.10 i ty of [facility] 4.2.7.2.[place] [id number] [facility] 089 [place] 2021-11-20 2021-11-20 Outpatient [facility] [id number] Univers 08:30:00 08:30:00 SANTIAGO ity [facility] 2021-11-20 2021-11-20 Outpatient R [facility] [id number] Univers 08:30:00 08:30:00 SANTIAGO charlie [facility] 2021-11-20 2021-11-20 Outpatient R RONALD [facility] [id number] Univers 08:30:00 08:30:00 SANTIAGO charlie [facility] 2021-11-20 2021-11-20 Outpatient R RONALD [facility] [id number] Univers 08:30:00 08:30:00 SANTIAGO [facility] 2021-10-24 2021-10-24 Emergency [facility] [id number] Univers 16:27:00 22:26:00 [facility] 2021-10-24 2021-10-24 Emergency X WALKER [facility] ERT [id number] Univers 16:27:00 22:26:00 CHARITY charlie [facility] 2021-10-24 2021-10-24 Emergency Reilly Means [facility] 1.2.840. 114 [id number] Univers 16:27:00 22:26:[address] [facility] 350.1.13.10 ity [facility] 4.2.7.2.686 [facility] [id number] [address] 2021-10-23 2021-10-24 Emergency [facility] E[facility] [id number] Univers 20:22:00 02:57:00 [facility] 2021-10-23 2021-10-24 [facility] 1.2.756.309 3566 [id number] Univers 20:22:00 02:57:[address] [facility] 350.1.13.10 ity [facility] 4.2.7.2.686 [facility] [id number] [address] 2021-09-07 2021-09-07 Outpatient R RODO, [facility] [id number] Univers 08:00:00 08:00:00 GADIEL barbosa o f [facility] 2021-09-07 2021-09-07 Outpatient R SELF, [facility] [id number] Univers 08:00:00 08:00:00 GADIEL macielcharlie o f [facility] 2021-08-21 2021-08-21 Outpatient R [facility] [id number] Univers 10:45:00 10:45:00 SANTIAGO barbosa [facility] 2021-08-21 2021-08-21 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 Finisher [place] Cardenas 1.2.840.1 [id number] Univers 10:45:00 10:45:00 Visit [facility] 03175.1.1 ity of 3.104.2.7 [place] .3.095279 Medica l .8 [place] 2021-08-21 2021-08-21 Office [facility], 1.2.840.7 [id number] Univers 08:30:00 09:00:00 Visit Santiago 84084.1.1 ity of 3.104.2.7 [place] .3.982817 Medica l .8 [place] 2021-08-21 2021-08-21 Office [facility], [facility] 1.2.528.072 8030 8516 Univers 08:30:00 09:00:00 Visit Santiago [facility] 350.1.13.10 i ty of CL[place] 4[place] [id number] [facility] 089 [place] 2021-08-21 2021-08-21 Outpatient R [facility] [id number] Univers 08:30:00 08:30:00 SANTIAGO barbosa [facility] 2021-08-21 2021-08-21 Travel 1.2.840.1 1.2.416.054 5080 3865 Univers 00:00:00 00:00:00 94876.1.1 350.1.13.10 ity of 3.104.2.7 4.[place].7.3.698 [place] .3.482814 084.8 Medica l .8 [place] 2021-08-14 2021-08-14 Telephone East, 1.2.840.1 [id number] Univers 00:00:00 00:00:00 [place] 90580.1.1 ity of 3.104.2.7 [place] .3.603184 Medica l .8 [place] 2021-08-13 2021-08-13 Telephone Ronald, 1.2.840.0 [id number] Univers 00:00:00 00:00:00 [place] 91061.1.1 [facility] 3.104.2.7 [facility] [facility]3.561090 Medica l .8 Branch 2021-08-11 2021-08-11 Outpatient [facility] [id number] Univers 08:00:00 08:00:00 [facility] 2021-08-05 2021-08-05 Inpatient RAUL EDUARDO LundCL OUTD [id number] [facility] 05:24:00 05:24:00 Mike 31 [facility] 2021-07-20 2021-07-20 Outpatient [facility] [id number] [facility] 10:00:00 10:00:00 [facility] 2021-07-14 2021-07-14 Office Pankaj, UTP 6400 1.2.840.114 13 [id number] [place] 08:45:00 09:34:[address] 350.1.13.58 Health 9.2.7.2.686 [id number] 1 2021-07-09 2021-07-09 Telephone H[place], UTP 6400 1.2.840.114 [id number] NE 00:00:00 00:00:[address] 350.1.13.58 Health 9.2.7.2.686 [id number] 1 2021-07-09 2021-07-09 Telephone [place], UTP 6400 1.2.840.114 [id number] NE 00:00:00 00:00:[address] 350.1.13.58 Health 9.2.7.2.686 [id number] 1 2021-07-03 2021-07-03 Outpatient [facility] [id number] Univers 08:00:00 08:00:00 [facility] 2021-06-17 2021-06-17 Inpatient EDUARDO LealCL INTE.02 [id number] [facility] 10:56:00 14:36:00 Mike 47 [facility] 2021-06-15 2021-06-15 Outpatient R SELF, [facility] [id number] Univers 10:15:00 11:07:21 GADIEL rodas [facility] 2021-06-15 2021-06-15 Outpatient R SELF, [facility] [id number] Univers 10:15:00 10:15:00 GADIEL rodas [facility] 2021-06-15 2021-06-15 Outpatient R SELF, [facility] [id number] Univers 10:15:00 10:15:00 GADIEL rodas [facility] 2021-06-15 2021-06-15 Orders Doctor 1.2.840.5 [id number] Univers 00:00:00 00:00:00 Only Unassigned, 62745.1.1 ity of [place] 3.104.2.7 [place] .3.458631 Medica l .8 [place] 2021-06-15 2021-06-15 Travel 1.2.840.1 1.2.607.724 8294 7719 Univers 00:00:00 00:00:00 95506.1.1 350.1.13.10 ity of 3.104.2.7 4.2.7.3.698 [place] .3.572913 084.8 Medica l .8 [place] 2021-06-11 2021-06-11 Refill East, UNIVERSIT 1.2.932.597 9527 9185 Univers 00:00:00 00:00:00 [facility] 350.1.13.10 i ty of CL[place] 4.[place] [id number] Medi porfirio 089 [place] 2021-06-11 2021-06-11 Refill East, 1.2.840.9 [id number] 87834 185 Univers 00:00:00 00:00:00 [place] 42495.1.1 ity of 3.104.2.7 [place] .3.134765 Medica l .8 [place] 2021-06-05 2021-06-05 Outpatient R EAST, [facility] [id number] Univers 09:00:00 09:00:00 SANTIAGO ity of [facility] 2021-06-02 2021-06-02 Telephone Ronald, UNIVERSIT 1.2.840.114 [id number] Univers 00:00:00 00:00:00 [place] HEALTH 350.1.13.10 i ty of [place] 4[place] [id number] [facility] 089 [place] 2021-06-02 2021-06-02 Telephone [facility], 1.2.840.1 [id number] 903 [id number] Univers 00:00:00 00:00:00 [place] 84552.1.1 ity of 3.104.2.7 [place] .3.596425 Medica l .8 [place] 2021-05-29 2021-05-29 Telephone [facility], 1.2.840.9 [id number] [id number] Univers 00:00:00 00:00:00 [place] 12006.1.1 ity of 3.104.2.7 [place] .3.147869 Medica l .8 [place] 2021-05-29 2021-05-29 Telephone [facility], 1.2.840.6 [id number] [id number] Univers 00:00:00 00:00:00 [place] 86566.1.1 ity of 3.104.2.7 [place] .3.372540 Medica l .8 [place] 2021-05-25 2021-05-25 Outpatient R RODO, [facility] [id number] Univers 08:00:00 08:00:00 GADIEL vogel f [facility] 2021-04-29 2021-04-29 Outpatient R LALA, [facility] [id number] Univers 08:00:00 08:00:00 NIKOLAI barbosa [facility] 2021-04-28 2021-04-28 Telephone KIMBERLEY [place] 6400 1.2.840.114 [id number] NE 00:00:00 00:00:00 Beverly RUIZ 350.1.13.58 Health 9.2.7.2.686 [id number] 2021-04-28 2021-04-28 Telephone Chihara, 1.2.840.6 [id number] 21 [id number] Methodi 00:00:00 00:00:[address] 3.430.2.7 Hospit a .3.029757 l .8 2021-04-28 2021-04-28 Telephone Jailyn, 1.2.840.7 [id number] 21 [id number] Methodi 00:00:00 00:00:[address] 3.430.2.7 Hospit a .3.804201 l .8 2021-03-31 2021-03-31 Orders Carol Ann, 1.2.840.1 [id number] 21 [id number] Methodi 00:00:00 00:00:00 Only Sarai Lieberman 52806.1.1 979 s t 3.430.2.7 Hospit a .3.568428 l .8 2021-03-30 2021-03-30 Outpatient Marika KOEHLER [facility] [id number] Univers 08:45:00 08:45:00 GADIEL rodas [facility] 2021-03-24 2021-03-24 Telephone Jailyn, 1.2.840.4 [id number] 21 [id number] Methodi 00:00:00 00:00:[address] 3.430.2.7 Hospit a .3.191402 l .8 2021-02-13 2021-02-13 Telephone Ronald, 1.2.840.4 [id number] 876 [id number] Univers 00:00:00 00:00:00 [place] 38082.1.1 [facility] 3.104.2.7 [place] .3.175983 [facility] Branch 2021-01-28 2021-01-28 Outpatient [facility] [id number] Univers 08:45:00 09:37:00 NIKOLAI barbosa [facility] 2021-01-28 2021-01-28 Travel 1.2.840.1 1.2.577.930 0413 9777 Univers 00:00:00 00:00:00 85112.1.1 350.1.13.10 ity of 3.104.2.7 4.[place].7.3.698 [place] .3.780062 084.8 Medica l .8 Branch 2021-01-19 2021-01-19 Telephone Prabhu, 1.2.840.1 [id number] 2100 [id number] Methodi 00:00:00 00:00:[address] 3.430.2.7 Hospit a .3.804173 l .8 2021-01-04 2021-01-04 Letter Shelia, 1.2.840.8 [id number] 61935 696 Univers 00:00:00 00:00:00 (Out) Dagoberto H 21967.1.1 ity of 3.104.2.7 [place] .3.592505 Medica l .8 [place] 2021-01-04 2021-01-04 Letter Shelia, 1.2.840.8 [id number] 05820 696 Univers 00:00:00 00:00:00 (Out) Dagoberto H 60416.1.1 ity of 3.104.2.7 [place] .3.724289 Medica l .8 [place] 2021-01-03 2021-01-03 Dmitry Bass, 1.2.840.3 [id number] 94733 790 Univers 00:00:00 00:00:00 (Out) Dagoberto H 89454.1.1 ity of 3.104.2.7 [place] .3.776730 Medica l .8 [place] 2021-01-03 2021-01-03 Letter Shelia, 1.2.840.9 [id number] 85199 790 Univers 00:00:00 00:00:00 (Out) Dagoberto H 01526.1.1 ity of 3.104.2.7 [place] .3.312257 Medica l .8 [place] 2021-01-02 2021-01-02 Outpatient R [facility] [id number] 786 Univers 13:40:00 13:40:00 ity of [facility] 2021-01-02 2021-01-02 Laboratory Cuba Franks 1.2.840.9 [id number] [facility] 12:14:13 12:57:34 Only Lab, Adc Fam Pob I 65956.1.1 ity of 3.104.2.7 [place] .3.744601 Medica l .8 [place] 2021-01-02 2021-01-02 Laboratory Cuba Franks 1.2.840.6 [id number] [id number] [facility] :14:13 12:57:34 Only Lab, Adc Fam Pob I 63278.1.1 ity of 3.104.2.7 [place] .3.909176 Medica l .8 [place] 2021-01-02 2021-01-02 Travel 1.2.840.1 1.2.321.255 8068 2306 Univers 00:00:00 00:00:00 60521.1.1 350.1.13.10 ity of 3.104.2.7 4.2.7.3.698 [place] .3.384203 084.8 Medica l .8 [place] 2021-01-02 2021-01-02 Letter Doctor 1.2.840.7 [id number] 36226 948 Univers 00:00:00 00:00:00 (Out) Unassigned, 31975.1.1 ity of [place] 3.104.2.7 [place] .3.510887 Medica l .8 [place] 2021-01-02 2021-01-02 Letter Doctor 1.2.840.7 [id number] 07853 946 Univers 00:00:00 00:00:00 (Out) Unassigned, 62809.1.1 ity of [place] 3.104.2.7 [place] .3.252100 Medica l .8 [place] 2021-01-02 2021-01-02 Travel 1.2.840.1 1.2.254.556 3476 2306 Univers 00:00:00 00:00:00 81787.1.1 350.1.13.10 ity of 3.104.2.7 4.2.7.3.698 [place] .3.707206 084.8 Medica l .8 [place] 2021-01-02 2021-01-02 Letter Doctor 1.2.840.7 [id number] 84219 948 Univers 00:00:00 00:00:00 (Out) Unassigned, 85346.1.1 ity of [place] 3.104.2.7 [place] .3.141955 Medica l .8 [place] 2021-01-02 2021-01-02 Letter Doctor 1.2.840.7 [id number] 08924 946 Univers 00:00:00 00:00:00 (Out) Unassigned, 10640.1.1 ity of [place] 3.104.2.7 [place] .3.067789 Medica l .8 [place] 2020-12-22 2020-12-22 Telephone Beltran, 1.2.840.6 [id number] 862 31826 Univers 00:00:00 00:00:00 Rossandynda R 07717.1.1 i ty of 3.104.2.7 [place] .3.751435 Medica l .8 [place] 2020-12-22 2020-12-22 Telephone Beltran, 1.2.840.2 [id number] 862 10862 Univers 00:00:00 00:00:00 Roshunda R 11789.1.1 i ty of 3.104.2.7 [place] .3.056388 Medica l .8 [place] 2020-12-12 2020-12-12 Office H[place]pour, UTP 6400 1.2.840.114 12 [id number] 07:42:02 08:18:[address] 350.1.13.58 9.2.7.2.686 [id number] 1 2020-12-12 2020-12-12 Office H[place]pour, UTP 6400 1.2.840.114 12 [id number] NE 07:42:02 08:18:[address] 350.1.13.58 Health 9.2.7.2.686 [id number] 1 2020-12-09 2020-12-09 Telephone Meisenbach, 1.2.840.1 [id number] Methodi 00:00:00 00:00:00 Sarai Corbin. 21571.1.1 316 s t 3.430.2.7 Hospit a .3.080674 l .8 2020-12-08 2020-12-08 [facility], 1.2.840.1 [id number] 2100 205747 Methodi 12:35:54 23:59:00 Encounter Ray [address]73.1.[address] 3.430.2.7 Hospit a .3.927183 l .8 2020-12-08 2020-12-08 [facility], 1.2.840.1 [id number] 41441 90221 Methodi 17:25:00 17:30:[address] 3.430.2.7 Hospit a .3.859518 l .8 2020-12-08 2020-12-08 [facility], 1.2.840.1 [id number] 45012 85319 Methodi 10:30:00 11:39:56 Visit Ray 54483.1.[address] 3.430.2.7 Hospit a .3.693324 l .8 2020-12-08 2020-12-08 Travel 1.2.840.1 1.2.995.031 9058 592532 Methodi 00:00:00 00:00:[address] 3.430.2.7 0.2.7.3.698 spita .3.750843 084.8 l .8 2020-12-02 2020-12-02 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 Finisher [place] Cardenas 1.2.840.1 [id number] [facility] 10:20:06 10:36:19 Visit [facility] 69696.1.1 ity of 3.104.2.7 [place] .3.770093 Medica l .8 [place] 2020-12-02 2020-12-02 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 Finisher [place] Cardenas 1.2.840.1 [id number] [facility] 10:20:06 10:36:19 Visit [facility] 04265.1.1 ity of 3.104.2.7 [place] .3.202175 Medica l .8 [place] 2020-12-02 2020-12-02 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 Finisher [facility] UNIVERSIT 1.2.840.114 8 [id number] 10:20:06 10:36:19 Visit [facility] 350.1.13.10 [facility] 4.2.7.2.686 [id number] [facility] 2020-12-02 2020-12-02 Office Ronald, 1.2.840.6 [id number] 67908 528 Univers 08:31:37 09:01:37 Visit Santiago 30218.1.1 ity of 3.104.2.7 [place] .3.980710 Medica l .8 [place] 2020-12-02 2020-12-02 [facility] [id number] Univers 09:00:00 09:00:00 SANTIAGO ity [facility] 2020-11-25 2020-11-25 Office Devin, 1.2.840.8 [id number] 62863 865 Univers 11:06:30 11:58:14 Visit Amarilisjolie Hairston 54931.1.1 i ty of 3.104.2.7 [place] .3.530014 Medica l .8 [place] 2020-11-25 2020-11-25 Office Devin 1.2.840.5 [id number] 75650 865 [facility] 11:06:30 11:58:14 Visit Devinmaria elena Hairston 67114.1.1 i ty of 3.104.2.7 [place] .3.956584 Medica l .8 [place] 2020-11-25 2020-11-25 [facility] 1.2.840.114 [id number] [id number] 11:06:30 11:58:14 Visit Robbi Marika [employer]ENT[employer] 350.1.13.10 REGIONAL 4.2.7.2.686 MATERNAL [id number] & CHILD [address] [place] [address] 2020-11-25 2020-11-25 Outpatient R [facility] [id number] Univers 11:00:00 11:00:00 ity [facility] 2020-11-25 2020-11-25 Telephone Shelby Beltran.2.840.7 [id number] 855 76378 Univers 00:00:00 00:00:00 Robbi R 79635.1.1 i ty of 3.104.2.7 [place] .3.648537 Medica l .8 Branch 2020-11-25 2020-11-25 Refill East, 1.2.840.9 [id number] 95405 592 Univers 00:00:00 00:00:00 [place] 77853.1.1 ity of 3.104.2.7 [place] .3.555245 Medica l .8 [place] 2020-11-25 2020-11-25 Travel 1.2.840.1 1.2.846.916 4498 0247 Univers 00:00:00 00:00:00 56127.1.1 350.1.13.10 ity of 3.104.2.7 4.2.7.3.698 [place] .3.903404 084.8 Medica l .8 [place] 2020-11-25 2020-11-25 Orders Doctor 1.2.840.7 [id number] 84264 064 Univers 00:00:00 00:00:00 Only Unassigned, 67169.1.1 ity of [place] 3.104.2.7 [place] .3.902596 Medica l .8 [place] 2020-11-25 2020-11-25 Telephone Beltran, 1.2.840.6 [id number] 855 96890 Univers 00:00:00 00:00:00 Robbi Hairston 38718.1.1 i ty of 3.104.2.7 [place] .3.863417 Medica l .8 [place] 2020-11-25 2020-11-25 Refill [facility], 1.2.840.0 [id number] 90647 592 Univers 00:00:00 00:00:00 [place] 66321.1.1 ity of 3.104.2.7 [place] .3.015434 Medica l .8 Branch 2020-11-25 2020-11-25 Travel 1.2.840.1 1.2.636.758 7599 0247 Univers 00:00:00 00:00:00 68264.1.1 350.1.13.10 ity of 3.104.2.7 4.2.7.3.698 [place] .3.618677 084.8 Medica l .8 Branch 2020-11-25 2020-11-25 Orders Doctor 1.2.840.4 [id number] 12789 064 Univers 00:00:00 00:00:00 Only Unassigned, 83295.1.1 ity of [place] 3.104.2.7 [place] .3.005503 Medica l .8 Branch 2020-11-25 2020-11-25 RefFormerly [facility] 1.2.846.413 3081 4592 00:00:00 00:00:00 [facility] 350.1.13.10 [facility] 4.2.7.2.686 [id number] 089 2020-11-25 2020-11-25 [facility] 1.2.937.730 4274 0821 00:00:00 00:00:00 Robbi Hairston [employer]ENT[employer] 350.1.13.10 [facility] 4.2.7.2.686 MATERNAL [id number] & CHILD [address] [place] [address] 2020-11-14 2020-11-14 Abstract Clark 1.2.840.1 [id number] 54162 47466 Methodi 00:00:00 00:00:[address] 3.430.2.7 Hospit a .3.273054 l .8 2020-11-14 2020-11-14 Telephone Clark 1.2.840.1 [id number] 2100 [id number] Methodi 00:00:00 00:00:[address] 3.430.2.7 Hospit a .3.376928 l .8 2020-11-12 2020-11-12 Outpatient R [facility] [id number] Univers 08:30:00 08:30:00 SANTIAGO familia [facility] 2020-11-07 2020-11-07 Telephone KIMBERLEY Ortiz 6400 1.2.840.114 124 [id number] 00:00:00 00:00:[address] 350.1.13.58 9.2.7.2.686 [id number] 1 2020-11-07 2020-11-07 Telephone Agustina Ortiz UTP 6400 1.2.840.11 4 [id number] NE 00:00:00 00:00:[address] 350.1.13.58 Health 9.2.7.2.686 [id number] 1 2020-10-31 2020-10-31 Office HematpourKIMBERLEY 6400 1.2.840.114 12 [id number] NE 07:54:00 09:45:[address] 350.1.13.58 Health 9.2.7.2.686 [id number] 1 2020-10-30 2020-10-30 Abstract Rody Maguire UTP 6400 1.2.840.1 14 [id number] NE 00:00:00 00:00:[address] 350.1.13.58 Health 9.2.7.2.686 [id number] 1 2020-10-29 2020-10-29 Refill [place], 1.2.840.5 [id number] 400 Univers 00:00:00 00:00:00 Santiago 37450.1.1 ity of 3.104.2.7 [place] .3.664589 Medica l .8 [place] 2020-10-29 2020-10-29 Refill [place], 1.2.840.8 [id number] 400 Univers 00:00:00 00:00:00 Santiago 76260.1.1 ity of 3.104.2.7 [place] .3.420539 Medica l .8 [place] 2020-10-27 2020-10-27 Telephone Jailyn 1.2.840.5 [id number] 21 [id number] Method 00:00:00 00:00:[address] 3.430.2.7 Hospit a .3.840091 l .8 2020-10-24 2020-10-24 Telephone Clark, 1.2.840.1 [id number] 2100 [id number] Methodi 00:00:00 00:00:[address] 3.430.2.7 Hospit a .3.774142 l .8 2020-10-22 2020-10-22 Outpatient R SELF, [facility] [id number] Univers 13:00:00 13:00:00 GADIEL rodas [facility] 2020-10-22 2020-10-22 Travel 1.2.840.1 1.2.409.751 9090 3839 Univers 00:00:00 00:00:00 87543.1.1 350.1.13.10 ity of 3.104.2.7 4.[place]7.3.698 [place] .3.025508 084.8 Medica l .8 [place] 2020-10-22 2020-10-22 Travel 1.2.840.1 1.2.290.751 4248 3839 Univers 00:00:00 00:00:00 85130.1.1 350.1.13.10 ity of 3.104.2.7 [place].3.698 [place] .3.731931 084.8 Medica l .8 [place] 2020-10-13 2020-10-13 Outpatient R SELF, [facility] [id number] Univers 08:45:00 08:45:00 GADIELKEI vogel [facility] 2020-10-06 2020-10-12 Telemedici Jailyn, 1.2.840.1 [id number] 21 [id number] Methodi 15:30:00 00:08:46 ne Ray [address]872.1.[address] 3.430.2.7 Hospit a .3.300080 l .8 2020-09-30 2020-09-30 Telephone Jailyn, 1.2.840.5 [id number] 21 [id number] Methodi 00:00:00 00:00:[address] 3.430.2.7 Hospit a .3.017218 l .8 2020-09-21 2020-09-21 Travel 1.2.840.1 1.2.195.695 3737 [id number] Methodi 00:00:00 00:00:[address] 3.430.2.7 0.2.7.3.698 Ho spita .3.272501 084.8 l .8 2020-09-06 2020-09-06 [facility] 1.2.840.1 [id number] 80046 Methodi 17:42:30 23:59:[address] 3.430.2.7 Hospit a .3.259378 l .8 2020-09-06 2020-09-06 [facility], 1.2.840.1 [id number] 2100 [id number] Methodi 16:50:00 17:41:00 Encounter Ray 84896.1.[address] 3.430.2.7 Hospit a .3.838206 l .8 2020-09-05 2020-09-05 [facility], 1.2.840.1 [id number] 2099 [id number] Methodi 09:17:00 19:45:00 Encounter Ray [address]188.1.[address] 3.430.2.7 Hospit a .3.465527 l .8 2020-09-05 2020-09-05 Surgery [facility], 1.2.840.1 [id number] [id number] Methodi 11:30:00 13:15:[address] 3.430.2.7 Hospit a .3.409048 l .8 2020-09-05 2020-09-05 Anesthesia [facility], 1.2.840.1 [id number] Methodi 11:27:00 12:20:00 Event Anupamdarrellthi 83214.1.1 [address] V. 3.430.2.7 Hospit a .3.403846 l .8 2020-09-05 2020-09-05 Travel 1.2.840.1 1.2.155.175 0273 041409 Methodi 00:00:00 00:00:[address] 3.430.2.7 0.2.7.3.698 spita .3.233937 084.8 l .8 2020-09-04 2020-09-04 Telephone [place], 1.2.840.1 [id number] Methodi 00:00:00 00:00:00 Sarai Lieberman 29424.1.1 762 s t 3.430.2.7 Hospit a .3.111026 l .8 2020-09-02 2020-09-02 Telephone Meisen[place], 1.2.840.4 [id number] Methodi 00:00:00 00:00:00 Sarai Lieberman 43102.1.1 344 s t 3.430.2.7 Hospit a .3.936482 l .8 2020-08-29 2020-08-30 [id number] [facility] 10:20:00 14:10:00 Outpatient r [place] 00 l [facility] 2020-08-29 2020-08-30 Outpatient HEM[place], [facility] CAR 7500 [facility] 05:20:00 09:10:00 [place] 2020-08-06 2020-08-06 Office East, 1.2.840.8 [id number] Univers 08:03:23 09:17:49 Visit [place] 03292.1.1 ity 3.104.2.7 [facility] [facility]3.374304 Medica l .8 Branch 2020-08-06 2020-08-06 [facility] [id number] Univers 08:30:00 08:30:00 SANTIAGO babrosa of [facility] 2020-07-14 2020-07-14 Outpatient R SELF, [facility] [id number] Univers 09:30:00 09:30:00 GADIEL barbosa o f [facility] 2020-07-14 2020-07-14 Travel 1.2.840.1 1.2.145.064 [id number] Univers 00:00:00 00:00:00 34419.1.1 350.1.13.10 ity of 3.104.2.7 [place].698 [place].04[place] 084.8 Medica l .8 [place] 2020-07-14 2020-07-14 Orders Doctor 1.2.840.8 [id number] Univers 00:00:00 00:00:00 Only Unassigned, 74349.1.1 ity of [place] 3.104.2.7 [place] .3.514520 Medica l .8 [place] 2020-06-16 2020-06-16 Outpatient R SELF, [facility] [id number] Univers 08:00:00 08:00:00 GADIEL barbosa o f [facility] 2020-06-06 2020-06-06 Telephone East, 1.2.840.7 [id number] Univers 00:00:00 00:00:00 [place] 15723.1.1 ity of 3.104.2.7 [place] .3.355604 Medica l .8 [place] 2020-06-04 2020-06-04 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 Finisher [place] Cardenas 1.2.840.1 [id number] Univers 09:31:58 09:40:12 Visit [facility] 24429.1.1 ity of 3.104.2.7 [place] .3.711076 Medica l .8 [place] 2020-06-04 2020-06-04 [facility] 1.2.734.440 [id number] Univers 08:13:41 09:28:25 Visit [place] [facility] 350.1.13.10 i ty of [place] 536.7184560 Medi porfirio 089 [place] 2020-06-04 2020-06-04 Outpatient R EAST, [facility] [id number] Univers 08:30:00 08:30:00 SANTIAGO barbosa of [facility] 2020-06-04 2020-06-04 Orders Doctor 1.2.840.5 [id number] Univers 00:00:00 00:00:00 Only Unassigned, 18748.1.1 ity of [place] 3.104.2.7 [place] .3.181396 Medica l .8 Branch 2020-05-19 2020-05-19 Telephone East, 1.2.840.7 [id number] Univers 00:00:00 00:00:00 [place] 05943.1.1 ity of 3.104.2.7 [place] .3.417650 Medica l .8 Branch 2020-04-24 2020-04-24 Telephone East, 1.2.840.1 [id number] Univers 00:00:00 00:00:00 [place] 26001.1.1 ity of 3.104.2.7 [place] .3.799231 Medica l .8 [place] 2020-04-14 2020-04-14 Outpatient R EAST, [facility] [id number] Univers 09:00:00 09:00:00 SANTIAGO ity of [facility] 2020-04-14 2020-04-14 Telephone East, 1.2.840.8 [id number] Univers 00:00:00 00:00:00 [place] 16815.1.1 ity of 3.104.2.7 [place] .3.592048 Medica l .8 [place] 2020-03-31 2020-03-31 Outpatient R EAST, [facility] [id number] Univers 08:30:00 08:30:00 SANTIAGO ity of [facility] 2020-03-03 2020-03-03 Outpatient R SELF, [facility] [id number] Univers 08:00:00 08:00:00 GADIEL barbosa o f [facility] 2020-03-03 2020-03-03 Outpatient R SELF, [facility] [id number] Univers 08:00:00 08:00:00 GADIEL maciely o f [facility] 2020-03-03 2020-03-03 Travel 1.2.840.1 1.2.341.796 [id number] Univers 00:00:00 00:00:00 63949.1.1 350.1.13.10 ity of 3.104.2.7 [place].3.698 [place] .3.715293 084.8 Medica l .8 [place] 2020-02-06 2020-02-06 Telephone East, 1.2.840.2 [id number] Univers 00:00:00 00:00:00 [place] 63642.1.1 ity of 3.104.2.7 [place] .3.454218 Medica l .8 Branch 2020-01-26 2020-01-26 Emergency Caridad, 1.2.840.5 [id number] Univers 10:03:00 13:05:00 Cynise 97403.1.1 ity of 3.104.2.7 [place] .3.362784 Medica l .8 [place] 2020-01-26 2020-01-26 Travel 1.2.840.1 1.2.156.931 [id number] Univers 00:00:00 00:00:00 46312.1.1 350.1.13.10 ity of 3.104.2.7 [place].3.698 [place] .3.963204 084.8 Medica l .8 [place] 2020-01-25 2020-01-25 [facility] [id number] Univers 08:30:00 08:30:00 SANTIAGO ity of [facility] 2020-01-25 2020-01-25 Telemedici East, 1.2.840.3 [id number] Univers 07:36:49 08:06:49 ne Visit [place] 01508.1.1 ity of 3.104.2.7 [place] .3.072507 Medica l .8 [place] 2020-01-16 2020-01-16 Outpatient R EAST, [facility] [id number] Univers 08:00:00 08:00:00 SANTIAGO ity of [facility] 2020-01-16 2020-01-16 Telephone East, 1.2.840.0 [id number] Univers 00:00:00 00:00:00 [place] 21127.1.1 ity of 3.104.2.7 [place] .3.293270 Medica l .8 [place] 2020-01-14 2020-01-14 Outpatient R SELF, [facility] [id number] Univers 08:00:00 08:00:00 GADIEL rodas [facility] 2019-12-31 2019-12-31 Outpatient R SELF, [facility] [id number] Univers 08:45:00 08:45:00 GADIEL rodas [facility] 2019-10-17 2019-10-17 Outpatient R EAST, [facility] [id number] Univers 08:30:00 08:30:00 SANTIAGO barbosa [facility] 2019-10-12 2019-10-12 Outpatient R EAST, [facility] [id number] Univers 13:00:00 13:00:00 SANTIAGO barbosa [facility] 2019-10-12 2019-10-12 Telemedici East, 1.2.840.5 [id number] Univers 07:38:30 08:08:30 ne Visit [place] 10487.1.1 ity of 3.104.2.7 [place] .3.407533 Medica l .8 [place] 2019-10-08 2019-10-08 Outpatient R SELF, [facility] [id number] Univers 10:15:00 10:15:00 GADIEL rodas [facility] 2019-10-03 2019-10-03 Case Assman, 1.2.840.0 [id number] Univers 00:00:00 00:00:00 Management Michael Corbin 92967.1.1 i ty of 3.104.2.7 [place] .3.881045 Medica l .8 [place] 2019-09-27 2019-09-27 Telephone East, 1.2.840.9 [id number] Univers 00:00:00 00:00:00 [place] 04027.1.1 ity of 3.104.2.7 [place] .3.291669 Medica l .8 [place] 2019-09-04 2019-09-04 Refill East, 1.2.840.5 [id number] Univers 00:00:00 00:00:00 [place] 17302.1.1 ity of 3.104.2.7 [place] .3.732305 Medica l .8 [place] 2019-07-24 2019-07-24 Outpatient R EAST, [facility] [id number] Univers 08:30:00 08:30:00 SANTIAGO barbosa [facility] 2019-07-17 2019-07-17 [facility] [id number] Univers 10:00:00 10:00:00 SANTIAGO barbosa [facility] 2019-06-15 2019-06-15 Telephone East, 1.2.840.3 [id number] Univers 00:00:00 00:00:00 Sanitago 03599.1.1 ity of 3.104.2.7 [place] .3.206471 Medica l .8 [place] 2019-06-13 2019-06-13 Telephone Team, [facility] 1.2.840.0 [id number] Univers 00:00:00 00:00:00 Health 18755.1.1 [place] .3.082473 Medica l .8 [place] 2019-05-10 2019-05-10 Refill Ronald, 1.2.840.9 [id number] Univers 00:00:00 00:00:00 [place] 43134.1.1 ity of 3.104.2.7 [place] .3.467567 Medica l .8 [place] 2019-05-09 2019-05-09 Refill Ronald, 1.2.840.6 [id number] Univers 00:00:00 00:00:00 [place] 73838.1.1 ity of 3.104.2.7 [place] .3.080957 Medica l .8 [place] 2019-04-30 2019-04-30 Outpatient R [facility] [id number] Univers 10:15:00 10:33:05 GADIEL barbosa o f [facility] 2019-04-18 2019-04-18 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 Finisher [place] Cardenas 1.2.840.1 [id number] Univers 10:00:39 10:44:31 Visit [facility] 69867.1.1 ity of 3.104.2.7 [place] .3.488869 Medica l .8 [place] 2019-04-18 2019-04-18 [facility] [id number] Univers 10:00:00 10:44:31 SANTIAGO ity [facility] 2019-04-18 2019-04-18 Office East, 1.2.840.6 [id number] Univers 08:27:44 09:53:27 Visit [place] 82553.1.1 ity of 3.104.2.7 [place] .3.252036 Medica l .8 [place] 2019-04-18 2019-04-18 Orders Doctor 1.2.840.4 [id number] Univers 00:00:00 00:00:00 Only Unassigned, 93408.1.1 ity of [place] 3.104.2.7 [place] .3.191155 Medica l .8 [place] 2019-04-11 2019-04-11 Refill East, 1.2.840.9 [id number] Univers 00:00:00 00:00:00 [place] 34543.1.1 ity of 3.104.2.7 [place] .3.968116 Medica l .8 [place] 2019-04-09 2019-04-09 Refill East, 1.2.840.2 [id number] Univers 00:00:00 00:00:00 [place] 13158.1.1 ity of 3.104.2.7 [place] .3.780278 Medica l .8 [place] 2019-04-03 2019-04-03 Telephone Team, [facility] 1.2.840.0 [id number] Univers 00:00:00 00:00:00 Health 31589.1.1 [place].2.[place] .3.719020 Medica l .8 [place] 2019-03-27 2019-03-27 Telephone Self, 1.2.840.6 [id number] Univers 00:00:00 00:00:00 Gadiel 96971.1.1 ity of 3.104.2.7 [place] .3.441144 Medica l .8 [place] 2019-01-17 2019-01-17 Office East, 1.2.840.8 [id number] Univers 07:37:21 10:32:51 Visit [place] 72730.1.1 ity of 3.104.2.7 [place] .3.029093 Medica l .8 Branch 2019-01-04 2019-01-12 Office Eveline Hansen 1.2.840.4 [id number] Univers 11:19:32 11:08:05 Visit Mariela 37101.1.1 ity of 3.104.2.7 [place] .3.731333 Medica l .8 Branch 2019-01-10 2019-01-10 Telephone Stanislav, 1.2.840.0 [id number] Univers 00:00:00 00:00:00 Eladio Inman 77092.1.1 ity of 3.104.2.7 [place] .3.497435 Medica l .8 [place] 2018-12-18 2018-12-18 Office Geraldine, 1.2.840.6 [id number] Univers 08:48:45 09:13:43 Visit Leyda 98360.1.1 it y of 3.104.2.7 [place] .3.112767 Medica l .8 [place] 2018-10-30 2018-10-30 Telephone East, 1.2.840.7 [id number] Univers 00:00:00 00:00:00 [place] 42630.1.1 ity of 3.104.2.7 [place] .3.429416 Medica l .8 [place] 2018-10-23 2018-10-23 Orders Doctor 1.2.840.9 [id number] Univers 00:00:00 00:00:00 Only Unassigned, 16867.1.1 ity of [place] 3.104.2.7 [place] .3.328462 Medica l .8 [place] 2018-10-23 2018-10-23 Nurse Selvin, 1.2.840.8 [id number] Univers 00:00:00 00:00:00 Triage Stefanie 08356.1.1 ity of 3.104.2.7 [place] .3.335212 Medica l .8 [place] 2018-10-23 2018-10-23 Telephone Self, 1.2.840.4 [id number] Univers 00:00:00 00:00:00 Gadiel 46357.1.1 ity of 3.104.2.7 [place] .3.529463 Medica l .8 [place] 2018-10-20 2018-10-20 Telephone Self, 1.2.840.1 [id number] Univers 00:00:00 00:00:00 Gadiel 66291.1.1 ity of 3.104.2.7 [place] .3.084918 Medica l .8 Branch Results Test Description Test Time Test Comments Results Result Comments Source BASIC METABOLIC PANEL (NA, K, CL, CO2, GLUCOSE, BUN, 2022-04 21:43:42 CREATININE, CA) Test Item Value Reference Range Interpretation Comme nts NA (test code = 7120151949) 142 mmol/L 135-145 K (test code = 1284322461) 3.5 mmol/L 3.5-5.0 CL (test code = 2554583059) 106 mmol/L 98-108 CO2 TOTAL (test code = 0843668515) 26 mmol/L 23-31 AGAP (test code = 7029749717) 2-16 BUN (test code = 0147015795) 29 mg/dL 7-23 H GLUCOSE (test code = 0964222899) 84 mg/dL 70-110 CREATININE (test code = 1.16 mg/dL 0.50-1.04 H 2783479999) CALCIUM (test code = 0622331586) 8.2 mg/dL 8.6-10.6 L eGFR (test code = 1061311169) mL/min/1.73m2 KYLE (test code = KYLE) Association [...] tests). Lab Interpretation (test code = Abnormal 12607-4) [facility] WITH [id number] 21:33:01 Test Item Value Reference Range Interpretation [...] (test code = 50.7 fL 39.0-49.9 H 08384-2) RDW-CV (test code = 14.6 % 12.0-15.5 788-0) PLT (test code = See_Comment L [Automated 777-3) message] The sy stem which generated this result transmitted reference range : 166 - 358 10*3/ ?L. The reference r abbey was not used to interpret this result as normal/abnormal . MPV (test code = 8.8 fL 9.5-12.9 L 22346-9) NRBC/100 WBC (test See_Comment [Automat ed code = 3415011688) message] The system which generated this result transmitted reference range : 0.0 - 10.0 /100 WBCs. The refer ence range was not u sed to interpret th is result as normal/abnormal . NRBC x10^3 (test code See_Comment [Auto mated = 9461199723) message] The s ystem which generated this result transmitted reference range : 10*3/?L. The reference range was not used to interpret this result as normal/abnormal . GRAN MAT (NEUT) % 70.9 % (test code = 770-8) IMM GRAN % (test code 0.50 % = 2226067692) LYMPH % (test code = 17.4 % 736-9) MONO % (test code = 9.0 % 5905-5) EOS % (test code = 1.7 % 713-8) BASO % (test code = 0.5 % 706-2) GRAN MAT x10^3(ANC) 4.60 10*3/uL 1.88-7.09 (test code = 4971424266) IMM GRAN x10^3 (test 0.03 10*3/uL 0.00-0.06 code = 7352562643) LYMPH x10^3 (test code 1.13 10*3/uL 1.32-3.29 L = 731-0) MONO x10^3 (test code 0.58 10*3/uL 0.33-0.92 = 742-7) EOS x10^3 (test code = 0.11 10*3/uL 0.03-0.39 711-2) BASO x10^3 (test code 0.03 10*3/uL 0.01-0.07 = 704-7) Lab Interpretation Abnormal (test code = 26886-0) [facility] [id number] 06:01:07 Test Item Value Reference Range Interpretation Comments Blood Culture-Aerobic No organisms No growth Previo us (test code = 15638-9) isolated prelim inary verified result was Culture [...] Culture-Anaerobic isolated preliminar y (test code = 64565-6) verifi ed result was Culture In Progress [...] CDT Lab Interpretation Normal (test code = 41606-9) [facility] CULTURE [id number] 06:01:07 Test Item Value Reference Range Interpretation Comments Blood Culture-Aerobic No organisms No growth Previo us (test code = 79578-0) isolated prelim inary verified result was Culture [...] Culture-Anaerobic isolated preliminar y (test code = 88840-4) verifi ed result was Culture In Progress [...] CDT Lab Interpretation Normal (test code = 28630-1) [facility] CULTURE [id number] 06:01:07 Test Item Value Reference Range Interpretation Comments Blood Culture-Aerobic No organisms No growth Previo us (test code = 83349-3) isolated prelim inary verified result was Culture [...] Culture-Anaerobic isolated preliminar y (test code = 36543-2) verifi ed result was Culture In Progress [...] CDT Lab Interpretation Normal (test code = 97621-5) [facility] [id number] 10:49:10 Test Item Value Reference Range Interpretation Comments NT-proBNP (test code 2660 pg/mL See_Comment H [Autom ated = 3808229340) message] The system which generated this result transmitted reference range : <=125. The reference range was not used to interpret this result as normal/abnormal . KYLE (test code = KYLE) Biotin has been reported to cause a negative bias, interpret results relative to patient's use of biotin. Lab Interpretation Abnormal (test code = 32366-6) [facility] [id number] 10:49:10 Test Item Value Reference Range Interpretation Comments NT-proBNP (test code 2660 pg/mL See_Comment H [Autom ated = 0938110291) message] The system which generated this result transmitted reference range : <=125. The reference range was not used to interpret this result as normal/abnormal . KYLE (test code = KYLE) Biotin has been reported to cause a negative bias, interpret results relative to patient's use of biotin. Lab Interpretation Abnormal (test code = 94699-1) [facility] METABOLIC PANEL (NA, K, CL, CO2, GLUCOSE, BUN, CREATININE, CA)2022-02-15 10:44:07 Test Item Value Reference Range Interpretation Comments NA (test code = 134 mmol/L 135-145 L 3325045883) K (test code = 3.2 mmol/L 3.5-5 L 2211180007) CL (test code = 98 mmol/L 98-108 9749034877) CO2 TOTAL (test code = 27 mmol/L 23-31 1897403075) AGAP (test code = 2-16 8793506806) BUN (test code = 19 mg/dL 7-23 0704167650) GLUCOSE (test code = 102 mg/dL 70-110 6821948905) CREATININE (test code = 0.95 mg/dL 0.5-1.04 0100416246) CALCIUM (test code = 8.5 mg/dL 8.6-10.6 L 1662135482) eGFR (test code = mL/min/1.73m2 3659366819) KYLE (test code = KYLE) Association of [...] tests). Lab Interpretation Abnormal (test code = 14150-2) [facility] Test Item Value Reference Range Interpretation Comments MAGNESIUM (test code = 7024334290) 1.8 mg/dL 1.7-2.4 Lab Interpretation (test code = Normal 70325-4) [facility] 10:44:07 Test Item Value Reference Range Interpretation Comments MAGNESIUM (test code = 4975873031) 1.8 mg/dL 1.7-2.4 Lab Interpretation (test code = Normal 69743-9) [facility] METABOLIC PANEL (NA, K, CL, CO2, GLUCOSE, BUN, CREATININE, CA)2022-02-15 10:44:07 Test Item Value Reference Range Interpretation Comments NA (test code = 134 mmol/L 135-145 L 9454180227) K (test code = 3.2 mmol/L 3.5-5.0 L 9287996425) CL (test code = 98 mmol/L 98-108 6676765588) CO2 TOTAL (test code = 27 mmol/L 23-31 5191543028) AGAP (test code = 2-16 4165164549) BUN (test code = 19 mg/dL 7-23 8722717687) GLUCOSE (test code = 102 mg/dL 70-110 4988505668) CREATININE (test code = 0.95 mg/dL 0.50-1.04 3660752467) CALCIUM (test code = 8.5 mg/dL 8.6-10.6 L 0864593651) eGFR (test code = mL/min/1.73m2 0197374315) KYLE (test code = KYLE) Association of [...] tests). Lab Interpretation Abnormal (test code = 56699-1) [facility] WITH [id number] 10:12:06 Test Item Value Reference Range Interpretation [...] RDW-SD (test code = 47.8 fL 39-49.9 51276-0) RDW-CV (test code = 15.2 % 12-15.5 788-0) PLT (test code = See_Comment L [Automated 777-3) message] The sy stem which generated this result transmitted reference range : 166 - 358 10*3/ ?L. The reference r abbey was not used to interpret this result as normal/abnormal . MPV (test code = 8.9 fL 9.5-12.9 L 11588-1) NRBC/100 WBC (test See_Comment [Automat ed code = 6959811461) message] The system which generated this result transmitted reference range : 0.0 - 10.0 /100 WBCs. The refer ence range was not u sed to interpret th is result as normal/abnormal . NRBC x10^3 (test code See_Comment [Auto mated = 6317489818) message] The s ystem which generated this result transmitted reference range : 10*3/?L. The reference range was not used to interpret this result as normal/abnormal . GRAN MAT (NEUT) % 65.9 % (test code = 770-8) IMM GRAN % (test code 0.30 % = 1398284740) LYMPH % (test code = 21.0 % 736-9) MONO % (test code = 10.1 % 5905-5) EOS % (test code = 2.4 % 713-8) BASO % (test code = 0.3 % 706-2) GRAN MAT x10^3(ANC) 2.49 10*3/uL 1.88-7.09 (test code = 9806150239) IMM GRAN x10^3 (test 0-0.06 code = 4620767904) LYMPH x10^3 (test code 0.79 10*3/uL 1.32-3.29 L = 731-0) MONO x10^3 (test code 0.38 10*3/uL 0.33-0.92 = 742-7) EOS x10^3 (test code = 0.09 10*3/uL 0.03-0.39 711-2) BASO x10^3 (test code 0.01-0.07 = 704-7) Lab Interpretation Abnormal (test code = 82745-8) [facility] WITH [id number] 10:12:06 Test Item Value Reference Range Interpretation [...] RDW-SD (test code = 47.8 fL 39.0-49.9 06279-3) RDW-CV (test code = 15.2 % 12.0-15.5 788-0) PLT (test code = See_Comment L [Automated 777-3) message] The sy stem which generated this result transmitted reference range : 166 - 358 10*3/ ?L. The reference r abbey was not used to interpret this result as normal/abnormal . MPV (test code = 8.9 fL 9.5-12.9 L 90540-3) NRBC/100 WBC (test See_Comment [Automat ed code = 7682030709) message] The system which generated this result transmitted reference range : 0.0 - 10.0 /100 WBCs. The refer ence range was not u sed to interpret th is result as normal/abnormal . NRBC x10^3 (test code See_Comment [Auto mated = 8337218779) message] The s ystem which generated this result transmitted reference range : 10*3/?L. The reference range was not used to interpret this result as normal/abnormal . GRAN MAT (NEUT) % 65.9 % (test code = 770-8) IMM GRAN % (test code 0.30 % = 3634011573) LYMPH % (test code = 21.0 % 736-9) MONO % (test code = 10.1 % 5905-5) EOS % (test code = 2.4 % 713-8) BASO % (test code = 0.3 % 706-2) GRAN MAT x10^3(ANC) 2.49 10*3/uL 1.88-7.09 (test code = 7274958193) IMM GRAN x10^3 (test 0.00-0.06 code = 7552110005) LYMPH x10^3 (test code 0.79 10*3/uL 1.32-3.29 L = 731-0) MONO x10^3 (test code 0.38 10*3/uL 0.33-0.92 = 742-7) EOS x10^3 (test code = 0.09 10*3/uL 0.03-0.39 711-2) BASO x10^3 (test code 0.01-0.07 = 704-7) Lab Interpretation Abnormal (test code = 81650-3) [facility] WITH [id number] 11:18:28 Test Item Value Reference Range Interpretation [...] RDW-SD (test code = 49.5 fL 39-49.9 73255-8) RDW-CV (test code = 15.5 % 12-15.5 788-0) PLT (test code = See_Comment L [Automated 777-3) message] The sy stem which generated this result transmitted reference range : 166 - 358 10*3/ ?L. The reference r abbey was not used to interpret this result as normal/abnormal . MPV (test code = 11.4 fL 9.5-12.9 76896-6) IPF % (test code = 8.7 % 1.3-7.7 H Platelet count 7537274566) measured by fluorescence method. NRBC/100 WBC (test See_Comment [Automat ed code = 4876972704) message] The system which generated this result transmitted reference range : 0.0 - 10.0 /100 WBCs. The refer ence range was not u sed to interpret th is result as normal/abnormal . NRBC x10^3 (test code See_Comment [Auto mated = [id number]) message] The s ystem which generated this result transmitted reference range : 10*3/?L. The reference range was not used to interpret this result as normal/abnormal . GRAN MAT (NEUT) % 62.0 % (test code = 770-8) IMM GRAN % (test code 0.80 % = 1193617373) LYMPH % (test code = 22.2 % 736-9) MONO % (test code = 9.6 % 5905-5) EOS % (test code = 5.1 % 713-8) BASO % (test code = 0.3 % 706-2) GRAN MAT x10^3(ANC) 2.21 10*3/uL 1.88-7.09 (test code = 9454026072) IMM GRAN x10^3 (test 0.03 10*3/uL 0-0.06 code = 6195992094) LYMPH x10^3 (test code 0.79 10*3/uL 1.32-3.29 L = 731-0) MONO x10^3 (test code 0.34 10*3/uL 0.33-0.92 = 742-7) EOS x10^3 (test code = 0.18 10*3/uL 0.03-0.39 711-2) BASO x10^3 (test code 0.01-0.07 = 704-7) POLYCHROMASIA (test 2+ See_Comment [Automa arpit code = 13741-8) message] The system which generated this result [...] . Lab Interpretation Abnormal (test code = 88218-6) [facility] (NA, K, CL, CO2, GLUCOSE, BUN, CREATININE, CA)2022-02-13 10:39:07 Test Item Value Reference Range Interpretation Comments NA (test code = 136 mmol/L 135-145 5309537591) K (test code = 4.1 mmol/L 3.5-5 7671371979) CL (test code = 102 mmol/L 98-108 2902858185) CO2 TOTAL (test code = 27 mmol/L 23-31 1313227612) AGAP (test code = 2-16 0542557735) BUN (test code = 22 mg/dL 7-23 2360511918) GLUCOSE (test code = 94 mg/dL 70-110 6137938737) CREATININE (test code = 0.94 mg/dL 0.5-1.04 7467943105) CALCIUM (test code = 8.1 mg/dL 8.6-10.6 L 6172142185) eGFR (test code = mL/min/1.73m2 6181462499) KYLE (test code = KYLE) Association of [...] tests). Lab Interpretation Abnormal (test code = 22898-4) [facility] 01:50:10 Test Item Value Reference Range Interpretation Comments Height (test code = in 9487402179) Weight (test code = lbs 4970383183) Systolic BP (test code mmHg = 7989056505) Diastolic BP (test code mmHg = 5439755941) Heart Rate (test code = bpm 0954402729) BSA (test code = 1.85 m2 8522344030) IVS (test code = 1.22 cm 9238940154) Interventricular Septum 1.22 cm Diastolic Thickness by 2D (test code = 3298610) LVIDD (test code = 5.00 cm 6807059371) Left Ventricular End 117.9 mL Diastolic Volume by Teichholz Method (test code = 5144826) LVPWD (test code = 1.22 cm 5535279330) PW (test code = 1.22 cm 0.6-1.0 0057325240) EF(Teich) (test code = 74.60 % 7111688283) LVIDS (test code = 2.80 cm 9344991382) Left Ventricular End 29.9 mL Systolic Volume by Teichholz Method (test code = 9771593) FS (test code = 44 % 8311807838) EF - 2D (test code = 74.60 % 41007364) LVOT diameter (test 2.16 cm code = 6064409933) LVOT area (test code = 3.70 cm2 5097592977) Ao root diam (test code 3.40 cm = 3931317977) Aortic root (test code 3.4 cm = 8042148695) Ao root annulus (test 3.4 cm code = 8207016375) LA size (test code = 3.4 cm 8825084410) TR Peak Spencer (test code 330.0 cm/s = 8622463030) Triscuspid Valve mmHg Regurgitation Peak Gradient (test code = 2248275112) PV REGURGITATION PEAK mmHg GRADIENT (test code = 0236836030) PI dec slope (test code 137.20 cm/s2 = 3774463385) LAV(MOD-sp4) (test code 102.90 mL = 3484277151) MV Peak E Spencer (test 84.1 cm/s code = 8118480475) MV Peak A Spencer (test 40.1 cm/s code = 4798947219) E/A ratio (test code = ratio 0616045082) MV valve area p 1/2 3.70 cm2 method (test code = 6065096775) MV dec slope (test code 413.00 cm/s2 = 2708866563) MV P1/2t max spencer (test 83.70 cm/s code = 3827921369) MV Prop V (test code = 41.80 cm/s 4345192362) Tapse (test code = 1.83 cm 8760905783) LVOT stroke volume 96.90 cm3 (test code = 9649749127) LVOT peak spencer (test 125.5 cm/s code = 6102506975) LVOT mn grad (test code mmHg = 8378000738) AV LVOT peak gradient mmHg (test code = 6296829950) LVOT peak VTI (test 26.4 cm code = 3387529007) LV V1 mean (test code = 78.10 cm/s 4398746259) Aortic valve mean 103.7 cm/s velocity (test code = 3092952738) Ao peak spencer (test code 165.6 cm/s = 4453481922) Ao VTI (test code = 37.2 cm 6315807756) AV area by cont VTI 2.6 cm2 (test code = 0256259597) AV area peak spencer (test 2.8 cm2 code = 7896226497) Ao max PG (test code = 11.00 mm[Hg] 4518722705) AV peak gradient (test mmHg code = 3986596023) AV valve area (test 2.60 cm2 code = 7303315777) AV mean gradient (test mmHg code = 3560236340) LA Volume Index (BP) 55.2 mL/m2 (test code = 8998131455) LA volume (BP) (test 102.1 mL code = 2186152375) LAV(MOD-sp2) (test code 86.10 mL = 6077294694) A2C EF (test code = 61.20 % 3959607814) EF(sp2-el) (test code = 61.60 % 7382429784) SV(MOD-sp2) (test code 47.10 mL = 6385038193) LV Diastolic Volume 70.7 mL (BP) (test code = 8174055642) A4C EF (test code = 53.00 % 9871041056) EF(MOD-bp) (test code = 56.70 % 3065504225) EF(sp4-el) (test code = 53.90 % 6266046689) LV Systolic Volume (BP) 30.6 mL (test code = 6445902683) SV(MOD-bp) (test code = 40.10 mL 8362955138) SV(MOD-sp4) (test code 32.40 mL = 5571227148) SV(sp4-el) (test code = 33.10 mL 9702018430) EF (test code = 0957609396) Left Ventricular Stroke 40.1 mL Volume by 2-D Biplane-MOD (test code = 0182725) LV Diastolic Volume 38.2 mL/m2 Index (BP) (test code = 5974636569) LV Systolic Volume 16.5 mL/m2 Index (BP) (test code = 9809368172) Radiology Study observation (narrative) (test code = 15969-2) KYLE (test code = KYLE) ?Left?Ventricle: Left [...] 1.00The left ventricular wall motion is normal. [facility] [id number] 05:45:01 Test Item Value Reference Interpretation Comments Range TROPONIN I (test See_Comment [Automated code = 4504403678) message] The system which generated this result [...] biotin. Lab Interpretation Normal (test code = 06485-1) [facility]MINAL IRS-[id number] 05:41:40 Test Item Value Reference Range Interpretation Comments NT-proBNP (test code 4250 pg/mL See_Comment H [Autom ated = 8727134172) message] The system which generated this result transmitted reference range : <=125. The reference range was not used to interpret this result as normal/abnormal . KYLE (test code = KYLE) Biotin has been reported to cause a negative bias, interpret results relative to patient's use of biotin. Lab Interpretation Abnormal (test code = 64421-0) [facility] THRMPLAS [id number] 05:35:21 Test Item Value Reference Range Interpretation Comments APTT Patient (test See_Comment [Automat ed code = 3173-2) message] The system which generated this result transmitted reference range : 23 - 38 Seconds . The reference range was not used to interpr et this result as normal/abnormal . KYLE (test code = KYLE) The [facility] patient population mean normal value for aPTT is 30 seconds. Lab Interpretation Normal (test code = 08153-0) [facility] [id number] 05:35:21 Test Item Value Reference Range Interpretation Comments APTT Patient (test See_Comment [Automat ed code = 3173-2) message] The system which generated this result transmitted reference range : 23 - 38 Seconds . The reference range was not used to interpr et this result as normal/abnormal . KYLE (test code = KYLE) The [facility] patient population mean normal value for aPTT is 30 seconds. Lab Interpretation Normal (test code = 49161-9) [facility] SoutheastPROTHROMBIN TIME / [id number] 05:33:21 Test Item Value Reference Range Interpretation [...] tions. Lab Interpretation (test Normal code = 97045-0) [facility]COMP. METABOLIC PANEL (24296)2022-02-11 05:33:21 Test Item Value Reference Range Interpretation Comments NA (test code = 137 mmol/L 135-145 9172902167) K (test code = 4.3 mmol/L 3.5-5 1376464957) CL (test code = 103 mmol/L 98-108 8678241527) CO2 TOTAL (test code = 25 mmol/L 23-31 2516426804) AGAP (test code = 2-16 1732397275) BUN (test code = 19 mg/dL 7-23 5490981477) GLUCOSE (test code = 120 mg/dL 70-110 H 8380499842) CREATININE (test code = 1.15 mg/dL 0.5-1.04 H 3361317324) TOTAL BILI (test code = 0.9 mg/dL 0.1-1.7 9297959763) CALCIUM (test code = 8.9 mg/dL 8.6-10.6 3161294280) T PROTEIN (test code = 6.6 g/dL 6.3-8.2 1274701896) ALBUMIN (test code = 4.0 g/dL 3.5-5 4392570495) ALK PHOS (test code = 73 U/L 34-122 4232020881) ALTv (test code = 18 U/L 5-35 1742-6) AST(SGOT) (test code = 31 U/L 13-40 4867092630) eGFR (test code = mL/min/1.73m2 8435379848) KYLE (test code = KYLE) Association of [...] tests). Lab Interpretation Abnormal (test code = 14752-9) [facility]. METABOLIC PANEL (53647)2022-02-11 05:33:21 Test Item Value Reference Range Interpretation Comments NA (test code = 137 mmol/L 135-145 3544824771) K (test code = 4.3 mmol/L 3.5-5.0 2126692899) CL (test code = 103 mmol/L 98-108 8740773483) CO2 TOTAL (test code = 25 mmol/L 23-31 9290250334) AGAP (test code = 2-16 0189877189) BUN (test code = 19 mg/dL 7-23 0634380649) GLUCOSE (test code = 120 mg/dL 70-110 H 6390063098) CREATININE (test code = 1.15 mg/dL 0.50-1.04 H 0205717458) TOTAL BILI (test code = 0.9 mg/dL 0.1-1.6 6582354403) CALCIUM (test code = 8.9 mg/dL 8.6-10.6 0991241337) T PROTEIN (test code = 6.6 g/dL 6.3-8.2 4741889176) ALBUMIN (test code = 4.0 g/dL 3.5-5.0 2835879272) ALK PHOS (test code = 73 U/L 34-122 0974616571) ALTv (test code = 18 U/L 5-35 1742-6) AST(SGOT) (test code = 31 U/L 13-40 7877509519) eGFR (test code = mL/min/1.73m2 4412181909) KYLE (test code = KYLE) Association of [...] tests). Lab Interpretation Abnormal (test code = 91451-4) [facility] SoutheastPROTHROMBIN TIME / [id number] 05:33:21 Test Item Value Reference Range Interpretation [...] tions. Lab Interpretation (test Normal code = 85689-7) [facility] SoutheastCB WITH [id number] 05:14:37 Test Item Value Reference Range Interpretation [...] RDW-SD (test code = 47.9 fL 39-49.9 51622-2) RDW-CV (test code = 14.9 % 12-15.5 788-0) PLT (test code = See_Comment L [Automated 777-3) message] The sy stem which generated this result transmitted reference range : 166 - 358 10*3/ ?L. The reference r abbey was not used to interpret this result as normal/abnormal . MPV (test code = 9.1 fL 9.5-12.9 L 18488-0) NRBC/100 WBC (test See_Comment [Automat ed code = 0736912071) message] The system which generated this result transmitted reference range : 0.0 - 10.0 /100 WBCs. The refer ence range was not u sed to interpret th is result as normal/abnormal . NRBC x10^3 (test code See_Comment [Auto mated = 9321294216) message] The s ystem which generated this result transmitted reference range : 10*3/?L. The reference range was not used to interpret this result as normal/abnormal . GRAN MAT (NEUT) % 78.5 % (test code = 770-8) IMM GRAN % (test code 0.20 % = 1567570341) LYMPH % (test code = 11.6 % 736-9) MONO % (test code = 8.4 % 5905-5) EOS % (test code = 1.1 % 713-8) BASO % (test code = 0.2 % 706-2) GRAN MAT x10^3(ANC) 3.45 10*3/uL 1.88-7.09 (test code = 1511008450) IMM GRAN x10^3 (test 0-0.06 code = 7251622676) LYMPH x10^3 (test code 0.51 10*3/uL 1.32-3.29 L = 731-0) MONO x10^3 (test code 0.37 10*3/uL 0.33-0.92 = 742-7) EOS x10^3 (test code = 0.05 10*3/uL 0.03-0.39 711-2) BASO x10^3 (test code 0.01-0.07 = 704-7) Lab Interpretation Abnormal (test code = 74585-2) [facility] Coronavirus 2019 Jolzjei9243-56-61 18:08:00 Test Item Value Reference Range Interpretation [...] det ection of nucleic acids f rom nzbINRW-LuV-1 v irus and diagnosis of SA RS-CoV-2 virusinfection. It is an Emergency Use Authorization ( EUA) testauthorized by the U.S. FDA. BASIC METABOLIC [id number] 09:37:00 Test Item Value Reference Range Interpretation [...] = 9.0 mg/dL 8.0-10.5 N CA) PROTHROMBIN QYPA3801-67-74 09:32:00 Test Item Value Reference Range Interpretation [...] (to prevent recurrent infar ct). 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 [facility] - XR CHEST 1 [id number] 00:00:00 [facility] : 1955 Sex: F FAX: Carmenza Kelly DO [phone] [place]: St: ADM FAX: Mike Scales MD [phone] FAX: Bahman Chopra [phone] Name: LIO WATTS [facility] Tano Garcia : 1955 Age/S: 66/F [address] [place] [address] Unit #: [id number] Loc: [place] [address] Phys: Bahman Chopra 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 Acct: [id number] Dis Date: Status: ADM IN PHONE #: [phone] Exam Date: 06/17/2021 1320 FAX #: [phone] Reason: WATCHMAN EXAMS: CPT CODE: [id number] XR CHEST 1 V 55430 PROCEDURE INFORMATION: Exam: XR Chest Exam date [...] Chopra Technologist: RT Taylor(R) Trnscrd Date/Time/By: 06/17/2021 (0498) : By: Susanna Orig Print D/T: S: 06/17/2021 (5394) PAGE 1 Signed ReportCOVID 19 Asymptomatic IH [id number] 12:29:00 Test Item Value Reference Range Interpretation [...] ergency Use Authorizati on(EUA) for use by [facility] certified under the CLIA thatmeet the requirements to perform moderate, high or waivedcomplexit y tests. BASIC METABOLIC [id number] 11:37:00 Test Item Value Reference Range Interpretation [...] code = 9.0 mg/dL 8.0-10.5 N CA) FIQVZEJQNU1253-39-15 11:37:00 Test Item Value Reference Range Interpretation Comments PREALBUMIN (test code = PREALB) 24.3 mg/dL 16.0-40.0 N PROTHROMBIN [id number] 11:03:00 Test Item Value Reference Range Interpretation [...] Antiphospholipi d Antibodies, Pre vention of systemic em bolism - Acute Myocard ial Infarction (to prevent recurrent infar ct). CBC W/AUTO [id number] 10:59:00 Test Item Value Reference Range Interpretation [...] 0.0-0.1 N NRBC#) - XR CHEST 2 [id number] 00:00:00 [facility] : 1955 Sex: F FAX: Urmila KellyBibiana DanielFrancisco H [phone] [place]: St: PRE FAX: Mike Scales MD [phone] Name: LIO WATTS [facility] : 1955 Age/S: 66/F [address] [place] [address] Unit #: [id number] Loc: [place], [place] [address]Bgdu: Mike Lund MD Acct: [id number] Dis Date: Status: PRE [facility] PHONE #: [phone] Exam Date: 06/16/2021 1120 FAX #: [phone] Reason: PREOP EXAMS: CPT CODE: [id number] XR CHEST 2 V 26280 PROCEDURE INFORMATION: Exam: XR Chest Exam date [...] By: [email or web address] Orig Print D/T: S: 06/16/2021 (9014) PAGE 1 Signed ReportGastrointestinal rcyie1332-29-87 04:35:05 Test Item Value Reference Interpretation Comments [...] Rotavirus PCR (test Not Detected code = 1009169) Salmonella PCR (test Not Detected code = [...] PCR Not Detected (test code = 7124) [facility] rcraqcz2770-88-67 19:30:47 Test Item Value Reference Range Interpretation Comments Case number (test [id number] code = 9514078) Surgical pathology See link below for PDF report (test code = Lab Report 2255) Result status (test This is Supplemental code = 2552689) Report for [id number] [facility]2021-04-09 16:31:00 Test Item Value Reference Range Interpretation Comments POC Activated Clotting Time (test code 153 s = POC Activated Clotting Time) [facility]ecQEXIQRJTIG6708[facility]-83 16:31:00 Test Item Value Reference Range Interpretation Comments POC Activated Clotting Time (test code 153 s = POC Activated Clotting Time) [facility] HospitalCfrnawpJNXTXXDIUB2696-19-36 16:31:00 Test Item Value Reference Range Interpretation Comments POC Activated Clotting Time (test code 153 s = POC Activated Clotting Time) [facility] HospitalIgepiisMHQMCWXYFB0263-35-36 16:31:00 Test Item Value Reference Range Interpretation Comments POC Activated Clotting Time (test code 153 s = POC Activated Clotting Time) [facility] HospitalKtmjndoZUEPGOCXGK8540-98-83 16:31:00 Test Item Value Reference Range Interpretation Comments POC Activated Clotting Time (test code 153 s = POC Activated Clotting Time) [facility] HospitalGqdjjasNCGHEYONIO5112-00-83 16:31:00 Test Item Value Reference Range Interpretation Comments POC Activated Clotting Time (test code 153 s = POC Activated Clotting Time) [facility] HospitalUouzczxUGKMKHRSRZ7865-17-57 16:31:00 Test Item Value Reference Range Interpretation Comments POC Activated Clotting Time (test code 153 s = POC Activated Clotting Time) [facility] HospitalVjcjvzjYFJAVFPAKI9559-76-07 14:37:00 Test Item Value Reference Range Interpretation Comments POC Activated Clotting Time (test code 454 s = POC Activated Clotting Time) [facility] HospitalRmhljbvQMLSCUKUTH4951-99-12 14:37:00 Test Item Value Reference Range Interpretation Comments POC Activated Clotting Time (test code 454 s = POC Activated Clotting Time) [facility] HospitalTagjnzsONCWTXLCOX5883-70-44 14:37:00 Test Item Value Reference Range Interpretation Comments POC Activated Clotting Time (test code 454 s = POC Activated Clotting Time) [facility] HospitalEfxnokhVTDLNVCACY2783-78-10 14:37:00 Test Item Value Reference Range Interpretation Comments POC Activated Clotting Time (test code 454 s = POC Activated Clotting Time) [place] 103721-04-09 14:37:00 Test Item Value Reference Range Interpretation Comments POC Activated Clotting Time (test code 454 s = POC Activated Clotting Time) [facility] HospitalQlzzaqpWTRVKUOMRH6633-42-24 14:37:00 Test Item Value Reference Range Interpretation Comments POC Activated Clotting Time (test code 454 s = POC Activated Clotting Time) [facility] HospitalFyvortlDMHNNPUCLZ2331-97-97 14:37:00 Test Item Value Reference Range Interpretation Comments POC Activated Clotting Time (test code 454 s = POC Activated Clotting Time) [facility] HospitalGpaclzcRUJWQFLTIZ1783-82-99 14:13:00 Test Item Value Reference Range Interpretation Comments POC Activated Clotting Time (test code 354 s = POC Activated Clotting Time) [facility] HospitalMvnotgpZBQWDRLFPC4979-62-06 14:13:00 Test Item Value Reference Range Interpretation Comments POC Activated Clotting Time (test code 354 s = POC Activated Clotting Time) [facility] HospitalCbizumpUACCWVSLZT3343-93-93 14:13:00 Test Item Value Reference Range Interpretation Comments POC Activated Clotting Time (test code 354 s = POC Activated Clotting Time) [facility] HospitalLjsvpwbCGDYHVLKUE9942-13-22 14:13:00 Test Item Value Reference Range Interpretation Comments POC Activated Clotting Time (test code 354 s = POC Activated Clotting Time) [facility] HospitalFeivvfyDAXDOQUVAA5159-74-26 14:13:00 Test Item Value Reference Range Interpretation Comments POC Activated Clotting Time (test code 354 s = POC Activated Clotting Time) [facility] HospitalDcivrzzQHIJTFKYRA1734-26-67 14:13:00 Test Item Value Reference Range Interpretation Comments POC Activated Clotting Time (test code 354 s = POC Activated Clotting Time) [facility] HospitalMgwcguxLPPZMQJEBT1076-02-24 14:13:00 Test Item Value Reference Range Interpretation Comments POC Activated Clotting Time (test code 354 s = POC Activated Clotting Time) [facility]BL[facility] BTHYVYS5086-36-55 10:37:00Negative (08/29/20 5:37 AM) [facility] ZNGGT3655-58-94 10:37:36150Azfsocsd HermannCHEM PANEL 2020-08-29 10:37:0028[facility]annCHE[facility] JDJVG8545-14-69 10:37:001.01[facility]annCHE[facility] THWWR5987-84-25 10:37:89181Watsdahw HermannCHEM LDIPE0720-95-04 10:37:003.8[facility]annCHE[facility] HBBWN8323-76-78 10:37:50899Ckghagfd HermannCHEM QGYUX0308-27-47 10:37:0028[facility]annCHE[facility] QTTYZ1014-24-56 10:37:009.8 [facility]annCHE[facility] SVGZH1997-72-50 10:37:0011.8[facility]annCHEM PANEL 2020-08-29 10:37:0059[facility]annCHEM XDRSK1173-44-75 10:37:002.9[facility] DamhknjSGKMBIQZMK3334-28-75 10:37:006.8[facility] TeizunhKSWDYOPWGA4571-89-17 10:37:004.47[facility] XsjympiVWANQLHJWT8642-78-72 10:37:0010.6[facility] Marty FQURLRHCJZ2118-22-32 10:37:0034.0[facility] TfuxovdXVMGBUGWSN3826-85-89 10:37:00 76.1[facility] OcaqjwyJFFYPUULPK2208-88-98 10:37:00 Test Item Value Reference Range Interpretation Comments MCH (test code = MCH) 23.8 pg 27.0-31.0 [facility] KvqdasgPRGVNNSJIF3328-61-28 10:37:0031.3[facility]annHEMATOLOGY 2020-08-29 10:37:0018.2[facility] BtewbhwZMENFETSLW0291-72-22 10:37:77915Ecgquzng UwzqkztIXOUVOELBC2771-17-92 10:37:007.5[facility] GpoqrsbFXQGYDIHOU9586-32-35 10:37:00 Test Item Value Reference Range Interpretation Comments PT (test code = PT) 12.8 s 12.0-14.7 [facility] QqxneikILJESIODCO8667-68-70 10:37:00 Test Item Value Reference Range Interpretation Comments INR (test code = INR) 0.97 1 0.85-1.17 [facility] NidqkiiXEKGITOHPZ3151-25-50 10:37:00 Test Item Value Reference Range Interpretation Comments PTT (test code = PTT) 25.0 s 22.9-35.8 [facility] EwxazepANZCRQLJIJ7202-00-11 10:37:0070.5[facility]annHEMATOLOGY 2020-08-29 10:37:0018.8[facility] DzcguorXGNIQYBPWM9988-88-94 10:37:009.5[facility] RimjhwaIMBGZUIIQB4231-21-71 10:37:000.9[facility] VjvcwrnNFRLOTGNTV9631-75-22 10:37:000.3[facility] AzbckpxPRKDCUOTSU1450-99-46 10:37:004.8[facility] [place] WBETJTSXHT3306-78-52 10:37:001.3[facility] HibljnhGUSGNIDJMK0167-32-70 10:37:000.6 [facility] EisqqelLHANMSLUJD3008-76-70 10:37:000.1[facility]annHEMATOLOGY 2020-08-29 10:37:001+ *ABN*(08/29/20 5:37 AM)[facility] XrwybizBUPXYSBOWK4173-90-16 10:37:00Not Detected (08/29/20 5:37 AM)[facility]annBLOOD BANK RESULTS 2020-08-29 10:37:00Negative (08/29/20 5:37 AM)[facility]annCHEM IMLRJ6917-79-61 10:37:99028Lplouoop HermannCHEM TQOCV0822-91-93 10:37:0028[facility]annCHEM ZPCEP7048-83-03 10:37:001.01[facility]annCHEM URAMH8455-59-42 10:37:26862 [facility]annCHE[facility] TLAPI3701-35-25 10:37:003.8[facility]annCHEM PANEL 2020-08-29 10:37:08887Jsjsxyqg HermannCHEM ZCWMR1347-28-08 10:37:0028[facility]annCHEM SRGRM1675-97-44 10:37:009.8[facility]annCHEM QIGNW6279-60-43 10:37:0011.8[facility]annCHEM ZCEJV1961-15-90 10:37:0059[facility]annCHEM KQHVX4032-74-95 10:37:002.9[facility] DkztvdwJXTBLMHCVT0536-80-19 10:37:006.8 [facility] PzjcxkaASTFUKCLWW6816-47-02 10:37:004.47[facility]annHEMATOLOGY 2020-08-29 10:37:0010.6[facility] XxijacrINNIUCFZTG0124-78-15 10:37:0034.0[facility] UlkwytfRDPAFCLWSG8739-96-08 10:37:0076.1[facility] KzqlxqwYCFWWCLURI2377-27-47 10:37:00 Test Item Value Reference Range Interpretation Comments MCH (test code = MCH) 23.8 pg 27.0-31.0 [facility] ThrkranSJFCPQEZEX4432-79-98 10:37:0031.3[facility]annHEMATOLOGY 2020-08-29 10:37:0018.2[facility] NvcowyoIGZUFPPTCZ8642-58-86 10:37:75893Pcqudoac WgjkwluBWKSZNIMCH8672-42-03 10:37:007.5[facility] MfjlxudDKUGLWYVXR4201-63-25 10:37:00 Test Item Value Reference Range Interpretation Comments PT (test code = PT) 12.8 s 12.0-14.7 [facility] EkqmwwbKYBTWYYNAA2355-30-49 10:37:00 Test Item Value Reference Range Interpretation Comments INR (test code = INR) 0.97 1 0.85-1.17 [facility] ZpmctbmBHPSTWUFZU4059-26-51 10:37:00 Test Item Value Reference Range Interpretation Comments PTT (test code = PTT) 25.0 s 22.9-35.8 [facility] KijxyabQYFPRPRWXQ8865-41-88 10:37:0070.5[facility]annHEMATOLOGY 2020-08-29 10:37:0018.8[facility] TkhzbfjJLXUQMMXDY6324-73-52 10:37:009.5[facility] HvxokznFXEAQRYLCW4309-73-69 10:37:000.9[facility] WbywsqlTHLSKOWOJS1680-41-61 10:37:000.3[facility] LgdilgqNYLNPUOFIG1214-75-32 10:37:004.8[facility] [place] IODYHYTGSP8332-95-10 10:37:001.3[facility] AqllfcbODBLMEGZHW7909-05-52 10:37:000.6 [facility] KidmrhfOSVKFFSKNF8903-94-45 10:37:000.1[facility]annHEMATOLOGY 2020-08-29 10:37:001+ *ABN*(08/29/20 5:37 AM)[facility] LhutixkKDXAWOJHQB8917-53-50 10:37:00Not Detected (08/29/20 5:37 AM)[facility]annBLOOD BANK RESULTS 2020-08-29 10:37:00Negative (08/29/20 5:37 AM)[facility]annCHEM KZIIH0844-41-42 10:37:05653Tbhlonqq HermannCHEM RGGNZ5212-00-21 10:37:0028[facility]annCHEM YXWVY0411-27-04 10:37:001.01[facility] HermannCHEM TMWXD4945-20-30 10:37:28926 [facility]annCHE[facility] QPIWB4594-56-39 10:37:003.8[facility]annCHEM PANEL 2020-08-29 10:37:57263Noywhugx HermannCHEM OXJUH2467-89-83 10:37:0028[facility] HermannCHEM TVPKR6608-67-25 10:37:009.8[facility] HermannCHEM YFFAS4236-60-37 10:37:0011.8[facility] HermannCHEM IBUBG9338-70-98 10:37:0059[facility] HermannCHEM BVZUW7229-95-92 10:37:002.9[facility] TuoqlmmXMTEALZIEP6842-75-62 10:37:006.8 [facility] OmepncdBFMJLXVGNH5140-80-65 10:37:004.47[facility]annHEMATOLOGY 2020-08-29 10:37:0010.6[facility] FoeersgCGWSNNGWCQ7461-29-04 10:37:0034.0[facility] NellowoAAGUCPPFME0263-69-71 10:37:0076.1[facility] TnrysptWWBSHCNSGF6841-92-21 10:37:00 Test Item Value Reference Range Interpretation Comments MCH (test code = MCH) 23.8 pg 27.0-31.0 [facility] DijdygkIJPZEOGJYE1453-44-37 10:37:0031.3[facility]annHEMATOLOGY 2020-08-29 10:37:0018.2[facility] DetmjaqKKDGPJJQGM3841-59-07 10:37:70639Zihshwur OpveoxsBOVWTIEFRA8590-61-17 10:37:007.5[facility] IwiqtkaRNBEVPZRGE1334-00-16 10:37:00 Test Item Value Reference Range Interpretation Comments PT (test code = PT) 12.8 s 12.0-14.7 [facility] TaflxafBPNRODZRKM7980-60-16 10:37:00 Test Item Value Reference Range Interpretation Comments INR (test code = INR) 0.97 1 0.85-1.17 [facility] XannrvoPIMNSPGHZN3534-17-41 10:37:00 Test Item Value Reference Range Interpretation Comments PTT (test code = PTT) 25.0 s 22.9-35.8 [facility] OfcmvzcSRNZXMZWSH9210-76-33 10:37:0070.5[facility]annHEMATOLOGY 2020-08-29 10:37:0018.8[facility] TbjzqcoOUFKNIYYVC3311-59-28 10:37:009.5[facility] NfmqftyRVWFHFSOIF4227-14-78 10:37:000.9[facility] ManzhjmHADLCDXOCU6962-73-87 10:37:000.3[facility] OxsuhseMSYMSICDSX6318-29-28 10:37:004.8[facility] ANMTHVNGCA6708-28-98 10:37:001.3[facility] EmlrkpsNRFRZGXUQM3866-90-39 10:37:000.6 [facility] OfjummrSXMGHDBCIV4592-84-71 10:37:000.1[facility]annHE[facility]OLOGY 2020-08-29 10:37:001+ *ABN*(08/29/20 5:37 AM)[facility] DzbcqieRYWVZJDNHA0430-80-68 10:37:00Not Detected (08/29/20 5:37 AM)[facility] RESULTS 2020-08-29 10:37:00Negative (08/29/20 5:37 AM)[facility]annCHEM FNXEC3816-86-54 10:37:46879Tvfoxkmm HermannCHEM RJXVZ6620-48-73 10:37:0028[facility]annCHEM UILGX2056-96-73 10:37:001.01[facility]annCHEM UDNOF1589-22-60 10:37:41292 [facility]annCHEM FTDTJ0206-12-56 10:37:003.8[facility]annCHEM PANEL 2020-08-29 10:37:45375Ivebpxjm HermannCHEM VLLPT2892-50-71 10:37:0028[facility]annCHEM FZIGU0397-82-40 10:37:009.8[facility] HermannCHEM GSPNA2283-57-66 10:37:0011.8[facility] HermannCHEM YVSPO0006-59-01 10:37:0059[facility] HermannCHEM JAVAQ6958-45-35 10:37:002.9[facility] LnrltfzPWXTZHQTGB9997-83-77 10:37:006.8 [facility] SvxgkaaHZLTEEGIWH8278-46-40 10:37:004.47[facility] HermannHEMATOLOGY 2020-08-29 10:37:0010.6[facility] UznkyhiKTHAUIFHCG1100-70-10 10:37:0034.0[facility] LruwumaLFVWZGDCAF9724-70-36 10:37:0076.1[facility] TetprblYWYCOGOTSM4333-85-18 10:37:00 Test Item Value Reference Range Interpretation Comments MCH (test code = MCH) 23.8 pg 27.0-31.0 [facility] KmatxecGJGJAKPZIR9451-23-06 10:37:0031.3[facility] HermannHEMATOLOGY 2020-08-29 10:37:0018.2[facility] CexlxurDKBMTULSMK5539-37-66 10:37:05658Kxkcfgzl GdeotofRAUACWRFNM2248-45-21 10:37:007.5[facility] VdvsurwVNRJQDEQBT9685-81-41 10:37:00 Test Item Value Reference Range Interpretation Comments PT (test code = PT) 12.8 s 12.0-14.7 [facility] CmgkjypTGKVBAONZK4744-41-86 10:37:00 Test Item Value Reference Range Interpretation Comments INR (test code = INR) 0.97 1 0.85-1.17 [facility] OmxwbdhHRTNQABOUE4613-52-76 10:37:00 Test Item Value Reference Range Interpretation Comments PTT (test code = PTT) 25.0 s 22.9-35.8 [facility] GgzshpzDXKFTVXOVZ5468-54-35 10:37:0070.5[facility] HermannHEMATOLOGY 2020-08-29 10:37:0018.8[facility] AuzfqtrKBOFPGTMNT7019-58-56 10:37:009.5[facility] WevieedXKFVJKFWAE2619-34-73 10:37:000.9[facility] OnonzffAPLSKZLSME2614-05-66 10:37:000.3[facility] VtmvsgvGDVTZJPAWE1378-63-64 10:37:004.8[facility] Marty YKRHZNQZTW2031-37-65 10:37:001.3[facility] XhxxitrUAUSOJAHJI9549-14-69 10:37:000.6 [facility] NbgqoxbKSYSVPGRVC6356-70-27 10:37:000.1[facility] HermannHEMATOLOGY 2020-08-29 10:37:001+ *ABN*(08/29/20 5:37 AM)[facility] DhbyzizRYFXVZQETD2053-97-65 10:37:00Not Detected (08/29/20 5:37 AM)[facility] HermannBLOOD BANK RESULTS 2020-08-29 10:37:00Negative (08/29/20 5:37 AM)[facility] HermannCHEM XATAZ9201-48-86 10:37:07780Mavotpuo HermannCHEM OBCDN1232-04-79 10:37:0028[facility] HermannCHEM OSVKM9474-85-22 10:37:001.01[facility] HermannCHEM SCWHL5739-73-56 10:37:16451 [facility]annCHEM UIJMS0646-93-37 10:37:003.8[facility] HermannCHEM PANEL 2020-08-29 10:37:55221Eufnigpw HermannCHEM SXVJD3354-07-44 10:37:0028[facility] HermannCHEM XCUAV2686-64-46 10:37:009.8[facility] HermannCHEM KZIHR3472-21-09 10:37:0011.8[facility] HermannCHEM OOWEM0677-05-93 10:37:0059[facility] HermannCHEM VRASD8861-07-79 10:37:002.9[facility] KulnoneZEDCNPWJUE9591-08-00 10:37:006.8 [facility] LphmbwsUVYLZFIVDM5849-81-16 10:37:004.47[facility] HermannHEMATOLOGY 2020-08-29 10:37:0010.6[facility] JhqnrgyEYUKODLBJI1231-20-43 10:37:0034.0[facility] NifwlbrSFKRIRHMGF8335-88-62 10:37:0076.1[facility] NbeiqtmOCLSJCUNNZ0945-58-25 10:37:00 Test Item Value Reference Range Interpretation Comments MCH (test code = MCH) 23.8 pg 27.0-31.0 [facility] EhrcqvmXEVICTXLDQ9419-30-55 10:37:0031.3[facility] HermannHEMATOLOGY 2020-08-29 10:37:0018.2[facility] QvslmecDQMAGCUWNK2538-65-58 10:37:26434Qcnxlgdw KplnopxIDHCDPVZZG0970-23-81 10:37:007.5[facility] CdqgwhuTVITUIBXRJ4051-45-62 10:37:00 Test Item Value Reference Range Interpretation Comments PT (test code = PT) 12.8 s 12.0-14.7 [facility] MihvggyJZBPVJUQJH2861-90-53 10:37:00 Test Item Value Reference Range Interpretation Comments INR (test code = INR) 0.97 1 0.85-1.17 [facility] QauvjveBVWSTPJNOR0157-10-83 10:37:00 Test Item Value Reference Range Interpretation Comments PTT (test code = PTT) 25.0 s 22.9-35.8 [facility] ZenbacjBENSQFDTSC0350-11-04 10:37:0070.5[facility] HermannHEMATOLOGY 2020-08-29 10:37:0018.8[facility] EghgudcCJZJDEIPMJ7704-42-82 10:37:009.5[facility] BgmidnkLJPOXZILSO2378-24-10 10:37:000.9[facility] TljmbrcAGQRVKWUCC0962-21-63 10:37:000.3[facility] RwqtyflHTEXVPEUDM1563-36-04 10:37:004.8[facility] [place] RCISLUKAXQ8772-20-62 10:37:001.3[facility] FegaiadIJBDZXMJNV3233-13-39 10:37:000.6 [facility] WlfmarwOVTOYBGBJW4323-44-20 10:37:000.1[facility] HermannHEMATOLOGY 2020-08-29 10:37:001+ *ABN*(08/29/20 5:37 AM)[facility] UklxadaZUAJCOLBAY5675-82-12 10:37:00Not Detected (08/29/20 5:37 AM)[facility] HermannBLOOD BANK RESULTS 2020-08-29 10:37:00Negative (08/29/20 5:37 AM)[facility] HermannCHEM SCKOB6120-63-89 10:37:51575Gwxinflh HermannCHEM FJADF6204-12-44 10:37:0028[facility] HermannCHEM CJMVR7445-97-37 10:37:001.01[facility] HermannCHEM PGQCZ6255-15-73 10:37:69473 [facility] HermannCHEM YUDFS2405-90-14 10:37:003.8[facility] HermannCHEM PANEL 2020-08-29 10:37:82467Vgphszlo HermannCHEM AOKJK5312-10-67 10:37:0028[facility] HermannCHEM HOTLN0778-63-33 10:37:009.8[facility] HermannCHEM JGVBS3831-60-56 10:37:0011.8[facility] HermannCHEM XHQTW8197-10-58 10:37:0059[facility] HermannCHEM BFJIQ5188-79-59 10:37:002.9[facility] JjfzdkyCOKAHUNLNU6557-40-61 10:37:006.8 [facility] PhrltthNGYSQKPINW8313-87-90 10:37:004.47[facility] HermannHEMATOLOGY 2020-08-29 10:37:0010.6[facility] NhewlphJVCGNAFDEM1443-86-23 10:37:0034.0[facility] MdanzvrAFKVURKRAX5258-84-46 10:37:0076.1[facility] RpirohzCWZYUAAEHO3561-94-53 10:37:00 Test Item Value Reference Range Interpretation Comments MCH (test code = MCH) 23.8 pg 27.0-31.0 [facility] RikwhglRAGRNADPYB4749-81-33 10:37:0031.3[facility] HermannHEMATOLOGY 2020-08-29 10:37:0018.2[facility] VwlrxagUCOVLLVMFV2232-88-99 10:37:29983Lnfcihxj OpomwzbROIHGLUYBR5508-31-51 10:37:007.5[facility] CeigwxxZBAMVHERIJ3047-05-14 10:37:00 Test Item Value Reference Range Interpretation Comments PT (test code = PT) 12.8 s 12.0-14.7 [facility] TorlxoeIPNJCZFWYT8023-78-01 10:37:00 Test Item Value Reference Range Interpretation Comments INR (test code = INR) 0.97 1 0.85-1.17 [facility] CzcumonHFHAHSXAOR6256-85-35 10:37:00 Test Item Value Reference Range Interpretation Comments PTT (test code = PTT) 25.0 s 22.9-35.8 [facility] KrfmltaDVYQWWGMQB2189-60-01 10:37:0070.5[facility] HermannHEMATOLOGY 2020-08-29 10:37:0018.8[facility] OgmntxjCAZFAHQCZV4136-62-15 10:37:009.5[facility] HntyflwCXRYBTVEWM5597-90-28 10:37:000.9[facility] ReabsnvGECZROLWPQ0303-60-99 10:37:000.3[facility] LkozrryTVLIVKVNOW7878-72-86 10:37:004.8[facility] JVMJPOLQPW9733-41-82 10:37:001.3[facility] LigriqwEAXIYPFNQN8479-05-74 10:37:000.6 [facility] SykfynlKWMWMORFYH0185-44-74 10:37:000.1[facility] HermannHEMATOLOGY 2020-08-29 10:37:001+ *ABN*(08/29/20 5:37 AM)[facility] TkocearKQUBMSWMPG4642-77-91 10:37:00Not Detected (08/29/20 5:37 AM)[facility] HermannBLOOD BANK RESULTS 2020-08-29 10:37:00Negative (08/29/20 5:37 AM)[facility] HermannCHEM XPLIP1531-99-68 10:37:02986Wgfinrpn HermannCHEM IQNKT4803-04-99 10:37:0028[facility] HermannCHEM JDWUZ0675-34-55 10:37:001.01[facility] HermannCHEM GMDWS0421-45-52 10:37:49164 [facility] HermannCHEM SXQLU5556-28-47 10:37:003.8[facility] HermannCHEM PANEL 2020-08-29 10:37:10925Wcbsoyiq HermannCHEM DYOUJ4089-25-15 10:37:0028[facility] HermannCHEM FLSXP9454-34-92 10:37:009.8[facility] HermannCHEM MRVKU3651-36-35 10:37:0011.8[facility] HermannCHEM WZBFT2009-51-94 10:37:0059[facility] HermannCHEM VMJQX9894-47-53 10:37:002.9[facility] XeqdnrkHIOOCWQGHC5489-52-94 10:37:006.8 [facility] MqccyjaSMGAEEDWNH2720-70-70 10:37:004.47[facility] HermannHEMATOLOGY 2020-08-29 10:37:0010.6[facility] EroxzfnLSOGOZNTSM2528-97-99 10:37:0034.0[facility] CovopibDKEGIGGNGQ9022-95-14 10:37:0076.1[facility] ByukdotZPRHOVAMGW9974-19-97 10:37:00 Test Item Value Reference Range Interpretation Comments MCH (test code = MCH) 23.8 pg 27.0-31.0 [facility] JqrmeruBLTIUXPXAR0693-01-64 10:37:0031.3[facility] HermannHEMATOLOGY 2020-08-29 10:37:0018.2[facility] SxxyabcREWTKURWOB9327-81-83 10:37:04396Dfjiidal BqvrjrpZFNIJFYIPJ4077-42-73 10:37:007.5[facility] TfhxdnjOUFHGOWCMR8025-69-12 10:37:00 Test Item Value Reference Range Interpretation Comments PT (test code = PT) 12.8 s 12.0-14.7 [facility] ZhorinsGHSYHFIAGS8233-56-62 10:37:00 Test Item Value Reference Range Interpretation Comments INR (test code = INR) 0.97 1 0.85-1.17 [facility] IbujaclDNUNSKHWCQ2233-53-92 10:37:00 Test Item Value Reference Range Interpretation Comments PTT (test code = PTT) 25.0 s 22.9-35.8 [facility] MzrbqsuQNYDLMZXLT0744-27-73 10:37:0070.5[facility] HermannHEMATOLOGY 2020-08-29 10:37:0018.8[facility] ZguvcnbSKWMGVZILM4801-01-42 10:37:009.5[facility] ImniyykKMWBCWSVCM4374-00-44 10:37:000.9[facility] ShovjzlPQFTEFDBFF0303-38-88 10:37:000.3[facility] QvbmtcvZELRGIJNCS9874-61-10 10:37:004.8[facility] QKUNQJAACW7411-94-32 10:37:001.3[facility] GkjpykjBTEIYQNUXK8076-63-19 10:37:000.6 [facility] JwtaexfJAXVIQBZBH0371-64-11 10:37:000.1[facility] HermannHEMATOLOGY 2020-08-29 10:37:001+ *ABN*(08/29/20 5:37 AM)[facility] SciccpkQOWUFCPMZM3913-82-28 10:37:00Not Detected (08/29/20 5:37 AM)[facility] HermannCHLAMYDIA, GC, TV,PCR, IN PMXLY5969-86-79 15:38:00 Test Item Value Reference Range Interpretation Comments FT (test code = CHTR) Not detected (qualifier Not Detected N value) FT (test code = Not detected (qualifier Not Detected N NGONO) value) FT (test code = TRVG) Not detected (qualifier Not Detected N value) [facility] CKUOPHEWQGO9543-08-66 10:57:00 Test Item Value Reference Range Interpretation Comments Color (test code = UCOLR) Dk. Yellow Clarity (test code = UCLAR) Hazy Glucose (test code = UGLUC) NEGATIVE NEGATIVE N Bilirubin (test code = UBILI) NEGATIVE NEGATIVE N Ketones (test code = UKET) NEGATIVE NEGATIVE N Specific [place] (test code = 1.025 1.005-1.030 A USPGR) [...] = None Seen None Seen N URCRYS) [facility]"
--- NOTE | 2022-04-24 14:03 | EDPHYS ---
Physician Documentation [facility] Name: Marjan Kolb Age: 67 yrs Sex: Female : 1955 Arrival Date: 04/24/2022 Time: 13:41 Bed IW5 Private MD: ED Physician Justus Kolb HPI: 04/24 14:09 This 67 yrs old Female presents to ER via Ambulatory with complaints of Arm Pain. snw 14:09 The patient or guardian complains of pain, that is chronic. The complaints affect the snw dorsal aspect of right forearm. Context: The problem was sustained at home. Treatment prior to arrival includes: pt has had multiple complete evaluations in ED re: current Cellulitis. States she has gotten her outpatient medications. The patient has experienced similar episodes in the past, chronically. The patient has been recently seen by a physician: The patient has been recently seen at the [facility] Emergency Department, today, for similar complaints. Historical: - Allergies: 14:02 Bactrim DS; kb3 14:02 butorphanol tartrate; kb3 14:02 Fentanyl; kb3 14:02 Reglan; kb3 14:02 Stadol; kb3 14:02 sulfamethoxazole (bulk); kb3 14:02 TRIMETHOPRIM; kb3 - PMHx: 14:02 Anxiety; Atrial Fib; Bipolar disorder; Chronic pain; COPD; esophageal varices; kb3 Hepatitis; HIV; Hypertension; Migraines; Panic Attacks; - PSHx: 14:02 Appendectomy; Bilateral shoulder repair; Cholecystectomy; hernia repair; R wrist SX; kb3 - Immunization history:: Adult Immunizations up to date, Client reports receiving the 2nd dose of the Covid vaccine, Last tetanus immunization: up to date. - Social history:: Smoking status: Patient denies any tobacco usage or history of. ROS: 14:08 Constitutional: Negative for fever, chills, and weight loss, Eyes: Negative for injury, snw pain, redness, and discharge, ENT: Negative for injury, pain, and discharge, Neck: Negative for injury, pain, and swelling, Cardiovascular: Negative for chest pain, palpitations, and edema, Respiratory: Negative for shortness of breath, cough, wheezing, and pleuritic chest pain, Abdomen/GI: Negative for abdominal pain, nausea, vomiting, diarrhea, and constipation, Back: Negative for injury and pain, : Negative for injury, bleeding, discharge, and swelling, Skin: Negative for injury, rash, and discoloration, Neuro: Negative for headache, weakness, numbness, tingling, and seizure, Psych: Negative for depression, anxiety, suicide ideation, homicidal ideation, and hallucinations. 14:08 MS/extremity: Positive for "my arm is killing me". Exam: 14:04 Head/Face: Normocephalic, atraumatic. Eyes: Pupils equal round and reactive to light, snw extra-ocular motions intact. Lids and lashes normal. Conjunctiva and sclera are non-icteric and not injected. Cornea within normal limits. Periorbital areas with no swelling, redness, or edema. Neck: Trachea midline, no thyromegaly or masses palpated, and no cervical lymphadenopathy. Supple, full range of motion without nuchal rigidity, or vertebral point tenderness. No Meningismus. Chest/axilla: Normal chest wall appearance and motion. Nontender with no deformity. No lesions are appreciated. Cardiovascular: Regular rate and rhythm with a normal S1 and S2. No gallops, murmurs, or rubs. Normal PMI, no JVD. No pulse deficits. Respiratory: Lungs have equal breath sounds bilaterally, clear to auscultation and percussion. No rales, rhonchi or wheezes noted. No increased work of breathing, no retractions or nasal flaring. Abdomen/GI: Soft, non-tender, with normal bowel sounds. No distension or tympany. No guarding or rebound. No evidence of tenderness throughout. MS/ Extremity: Pulses equal, no cyanosis. Neurovascular intact. Full, normal range of motion. Neuro: Awake and alert, GCS 15, oriented to person, place, time, and situation. Cranial nerves II-XII grossly intact. Motor strength 5/5 in all extremities. Sensory grossly intact. Cerebellar exam normal. Normal gait. Psych: Awake, alert, with orientation to person, place and time. Behavior, mood, and affect are within normal limits. 14:04 Constitutional: The patient appears alert, awake, pt aggressive, states, "I know they are mad". I discussed with pt that she is going to have to take her medications as directed, follow up PCP, she cannot be admitted without criteria, and that she would not get opiates in the ED today. Pt was discharged this am post MN 14:04 Skin: Appearance: normal except for affected area, lesion(s), scabbed abrasion/avulsions to left hand, right forearm with clean/dry dressing. Vital Signs: 14:01 BP 157 / 94; Pulse 94; Resp 20; Temp 98; Pulse Ox 97% ; Weight 78.93 kg; Height 5 ft. 7 kb3 in. (170.18 cm); Pain 1010; 14:01 Body Mass Index 27.25 (78.93 kg, 170.18 cm) kb3 MDM: 14:03 Patient medically screened. snw 14:10 Data reviewed: vital signs, nurses notes. Data interpreted: Pulse oximetry: on room air snw is 97 %. Interpretation: normal. Counseling: I had a detailed discussion with the patient and/or guardian regarding: the historical points, exam findings, and any diagnostic results supporting the discharge/admit diagnosis, the presence of at least one elevated blood pressure reading (>120/80) during this emergency department visit, the need for outpatient follow up. Special discussion: Based on the history and exam findings, there is no indication for further emergent testing or inpatient evaluation. I discussed with the patient/guardian the need to see the bottom painter for further evaluation of the symptoms. I discussed with the patient/guardian the need to see the primary care provider for further evaluation of the symptoms. Administered Medications: No medications were administered Disposition: 04/25 08:08 Co-signature as Attending Physician, Justus Kolb MD I agree with the assessment and thomas plan of care. Disposition Summary: 04/24/22 14:03 Discharge Ordered Location: Home snw Condition: Stable snw Diagnosis - Pain in arm, unspecified snw Followup: snw - With: Emergency Department - When: As needed - Reason: Worsening of condition Followup: snw - With: Private Physician - When: 1 - 2 days - Reason: Recheck today's complaints, Continuance of care, Re-evaluation by your physician Discharge Instructions: - Discharge Summary Sheet snw - Myofascial Pain Syndrome and Fibromyalgia snw - How to Use Cold Therapy snw - Heat Therapy snw - Managing Pain Without Opioids snw Forms: - Medication Reconciliation Form snw - Thank You Letter snw - Antibiotic Education snw - Prescription Opioid Use snw Signatures: Justus Kolb MD MD cha Waters, Shelly, GRAPHIC PRE PRESS TRADES WORKER-C GRAPHIC PRE PRESS TRADES WORKER-Csnw Ava Mabry, RN RN kb3
--- NOTE | 2022-04-24 14:03 | ER ---
Nurse's Notes [facility] Name: Marjan Kolb Age: 67 yrs Sex: Female : 1955 Arrival Date: 04/24/2022 Time: 13:41 Bed IW5 Private MD: Diagnosis: Pain in arm, unspecified Presentation: 04/24 14:01 Chief complaint: Patient states: right arm pain similar to pain from visit yesterday. kb3 Pt states she picked up her prescription she received upon discharge this morning and followed up with Dr Rahman this morning. When pt was reminded that today was Tuesday and she just left this ER 12 hrs ago, pt stated she must not have followed up with Dr Rahman yet. Coronavirus screen: Vaccine status: Patient reports receiving the 2nd dose of the covid vaccine. Client denies travel out of the [place] in the last 14 days. Ebola Screen: Patient negative for fever greater than or equal to 101.5 degrees Fahrenheit, and additional compatible Ebola Virus Disease symptoms Patient denies exposure to infectious person. Patient denies travel to an Ebola-affected area in the 21 days before illness onset. Initial Sepsis Screen: Does the patient meet any 2 criteria? No. Patient's initial sepsis screen is negative. Does the patient have a suspected source of infection? No. Patient's initial sepsis screen is negative. Risk Assessment: Do you want to hurt yourself or someone else? Patient reports no desire to harm self or others. Onset of symptoms is unknown. 14:01 Method Of Arrival: Ambulatory kb3 14:01 Acuity: BLAYNE 5 kb3 Triage Assessment: 14:02 General: Appears in no apparent distress. Behavior is agitated. Pain: Complains of pain kb3 in dorsal aspect of right forearm Pain does not radiate. Pain currently is 10 out of 10 on a pain scale. Historical: - Allergies: 14:02 Bactrim DS; kb3 14:02 butorphanol tartrate; kb3 14:02 Fentanyl; kb3 14:02 Reglan; kb3 14:02 Stadol; kb3 14:02 sulfamethoxazole (bulk); kb3 14:02 TRIMETHOPRIM; kb3 - PMHx: 14:02 Anxiety; Atrial Fib; Bipolar disorder; Chronic pain; COPD; esophageal varices; kb3 Hepatitis; HIV; Hypertension; Migraines; Panic Attacks; - PSHx: 14:02 Appendectomy; Bilateral shoulder repair; Cholecystectomy; hernia repair; R wrist SX; kb3 - Immunization history:: Adult Immunizations up to date, Client reports receiving the 2nd dose of the Covid vaccine, Last tetanus immunization: up to date. - Social history:: Smoking status: Patient denies any tobacco usage or history of. Screenin:05 Abuse screen: Denies threats or abuse. Denies injuries from another. Nutritional kb3 screening: No deficits noted. Tuberculosis screening: No symptoms or risk factors identified. Fall Risk None identified. Assessment: 14:05 Reassessment: Patient appears in no apparent distress at this time. General: Provider kb3 in [facility]. 14:20 General: Pt left before signing paperowrk. kb3 Vital Signs: 14:01 BP 157 / 94; Pulse 94; Resp 20; Temp 98; Pulse Ox 97% ; Weight 78.93 kg; Height 5 ft. 7 kb3 in. (170.18 cm); Pain 10/10; 14:01 Body Mass Index 27.25 (78.93 kg, 170.18 cm) kb3 ED Course: 13:41 Patient arrived in ED. mr 13:45 Cristina Mueller FNP-C is PHCP. snw 13:45 Justus Kolb MD is Attending Physician. snw 14:02 Triage completed. kb3 14:02 Arm band placed on left wrist. kb3 14:05 Patient has correct armband on for positive identification. kb3 14:05 No provider procedures requiring assistance completed. Patient did not have IV access kb3 during this emergency room visit. Administered Medications: No medications were administered Medication: 14:05 VIS not applicable for this client. kb3 Outcome: 14:03 Discharge ordered by . snw 14:52 Discharged to home kb3 14:52 Condition: stable 14:52 Patient left the ED. kb3 Signatures: Cristina Mueller FNP-C SECOND GRADE TEACHER-Csnw Jessie Hill Ava Mabry, RN RN kb3 Corrections: (The following items were deleted from the chart) 14:05 14:01 Chief complaint: Patient states: right arm pain similar to pain from visit kb3 yesterday kb3
[2022-04-24 15:12] VITALS: BP 157/94; TEMP 98; O2SAT 97
== END 2022-04-24 14:52 | disposition home or self-care (01) ==
LOC: ER 13:37
DX: M79.601 Pain in right arm (principal)
CPT/HCPCS: 99281

== ENCOUNTER 2022-04-25 01:41 | Observation (INO) | payer OTHER ==
--- OUTSIDE RECORDS SUMMARY | 2022-04-25 01:58 | XMS REPORT | Continuity of Care Document ---
:1955 Author Organization [facility] t Address [address] [place] [address] Care Team Providers Name Role Phone Urmila Rahman Primary Care Physician ELAN ALVARADO Attending Clinician Unavailable BEVERLY LAYTON Attending Clinician Unavailable SANTIAGO CARDENAS Attending Clinician Unavailable PAULETTE GRAY S Attending Clinician Unavailable Paulette Galvan S Attending Clinician UNKNOWN, ATTENDING Attending Clinician Unavailable Robbi Bal Attending Clinician Santiago Sanchez Attending Clinician [facility] Attending Clinician Unavailable Isaias Whiteside RN Attending Clinician Unavailable TOMY MARIE Attending Clinician Unavailable Reilly Means MD Attending Clinician Ofe Shields MD Attending Clinician Tomy Marie MD Attending Clinician Doctor Unassigned, [place] Attending Clinician Unavailable Bill COLES Attending Clinician Unavailable Bill Rose Attending Clinician CHARITY MCALLISTER Attending Clinician Unavailable Charity Mcallister MD Attending Clinician GADIEL KOEHLER Attending Clinician Unavailable Mike Lund Attending Clinician Unavailable NIKOLAI REEVES Attending Clinician Unavailable Eliseo Arce MD Attending Clinician Carol Ann IZQUIERDO, Sarai Lieberman Attending Clinician [phone] Ashly Pelletier MA Attending Clinician Unavailable Dagoberto Bass MD Attending Clinician [place] Evangelista Attending Clinician Lab, [facility] P[facility] I Attending Clinician Unavailable Monica Rodas MA Attending Clinician Unavailable Agustina Ortiz MA Attending Clinician Unavailable Rody Maguire RN Attending Clinician Unavailable Kirit Flood MD, V. Attending Clinician HEMATPOBEVERLY [place] Attending Clinician Unavailable Gloria Hinojosa Attending Clinician Michael Hagen RN Attending Clinician Unavailable Team, [facility] Attending Clinician UnavailDO PORSHA Newell Attending Clinician Unavailable Gadiel Koehler MD Attending Clinician Tyrone JENKINS, Eveline Sierra Attending Clinician Stanislav RAMIREZ, Eladio Inman Attending Clinician Unavailable Leyda Willis Attending Clinician [phone] Selvin RAMIREZ, Stefanie Attending Clinician Unavailable TOMY MARIE Admitting Clinician Unavailable Becca JENKINS, Tomy Admitting Clinician Bill COLES Admitting Clinician Unavailable RahmanLele bird Kristen Admitting Clinician Unavailable Mike Lund Admitting Clinician Unavailable ELISEO ARCE Admitting Clinician Unavailable DO PORSHA STREETER Admitting Clinician Unavailable Payers Payer Name Policy Type Policy Number Effective Date Expiration Date S gabino [facility] COMM[facility]ITY PLAN [id number] 2012 STAR PLUS OON 00:00:00 [facility] [id number] 2019 DUAL COMPLETE HMO 00:00:00 FORMERLY [facility] [id number] 2019 PLUS 00:00:00 MEDICAID [facility] [id number] 2020 00:00:00 [facility] [id number] 2019 [facility]ALTH [place] [facility] 00:00:00 [employer] MEDICARE ADV [id number] 2019 2019 00:00:00 00:00:00 Problems Condition Condition Condition Status Onset Resolution Last Treating Co mments Source Name Details Category Date Date Treatment Clinician Date Dyspnea, Dyspnea, Disease Active Unive rs unspecifie unspecifie 02-11 it y of d type d type 00:00: [place] [address] Medical Branch Gastropare Gastropare Disease Active Overview : Methodi sis sis 4-[address] 00:00: [facility] note l might be different from the original. Added automatic ally from request for surgery [id number] Dysphagia Dysphagia Disease Active Overview: Methodi 4-[address] 00:00: [facility] 00 note l might be different from the original. Added automatic ally from request for surgery [id number] CCL / EPS CCL / EPS Diagnosis Active 2020-10-15 Memoria PVI PVI 3-30 17:07:00 l ABLATION ABLATION 00:00: Patel n W/ CARTO / W/ CARTO / 00 GA / T GA / T Active 08/19/2020 [facility] Food Food Disease Active 2019-05 Methodi [...] (BMI 2-19 ity of 30-39.9) 30-39.9) 00:00: [place] [facility] Anemia Anemia Disease Active 2014-05 Univers 0-03 ity of 00:00: [place] [facility] Hypovolemi Hypovolemi Disease Active 2014-05 U nivers a due to a due to 0-02 ity of hemorrhage hemorrhage 00:00: [place] [facility] [place] Chest pain Chest pain Disease Active 2014-05 U nivers 0-02 ity of 00:00: [place] [facility] 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:00: [place] shoulder shoulder 00 Medica l arthroplas arthroplas Br anch ty ty Posttrauma Posttrauma Disease Active U nivers tic stress tic stress 08 it y of disorder disorder 00:00: [place] [facility] 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 00:00: [place] virus virus Medical (HIV) (HIV) Branch disease disease Bipolar 2 Bipolar 2 Disease Active Uni vers disorder disorder 11-18 ity of 00:00: [place] [facility] Chronic Chronic Disease Active Univers hepatitis hepatitis 11-18 ity of C C 00:00: [place] [facility] Hypertensi Hypertensi Disease Active U nivers on on 11-18 ity of 00:00: [place] [facility] Allergies, Adverse Reactions, Alerts Allergy Allergy Status Severity Reaction(s) Onset Inactive Treating Comm ents Source Name Type Date Date Clinician sulfamet DA Active SV N/V [facility] hoxazole 1-25 Clear 00:00: [address] trimetho DA Active SV [facility] prim 1-25 Clear 00:00: Garcia [facility] codeine DA Active SV N/V [facility] 1-25 Clear 00:00: Garcia [facility] Metoclop Propensi Active [place] ramide ty to [...] Natural father Diabetes [facility] Natural father Other - see comments [facility] Natural father [facility] Natural father Hy[facility] father [facility] Natural mother [facility] Social History Social Habit Start Date Stop Date Quantity Comments Source History SDOH [facility] Alcohol Frequency Hospita l History SDOH [facility] Alcohol Std Drinks Hospit al History SDOH [facility] Alcohol B[facility] Tobacco use and 2022-02-11 2022-02-11 Former smokeless Uni versity of exposure 00:00:00 00:00:00 tobacco user [facility] Tobacco Comment 2022-02-11 2022-02-11 Smokes approx 1-2 Un iversity of 00:00:00 00:00:00 cigarettes per [facility] day when she Branch smokes Exposure to 2022-01-31 2022-02-10 Not sure University of SARS-CoV-2 (event) 00:00:00 22:53:00 [facility] Alcohol intake 2020-12-08 2020-12-08 Current drinker Metho dist 00:00:00 00:00:00 of alcohol Hospital (finding) Cigarettes smoked 2020-09-05 2020-09-[address] current (pack [facility] - Reported Cigarette 2020-09-05 2020-09-05 [facility] pack-years 00:00:00 00:00:00 Hospital Alcohol Comment 2016-09-23 2016-09-23 rare [facility] 00:00:00 00:00:00 Hospital History of tobacco 2011-09-29 User of smokeless University of use 00:00:00 tobacco [facility] Sex Assigned At [birth year] [place] [facility] [...] 04/22/22 at 1645, Routine amoxicillin 2021-05 Yes [id number] 1{tbl} Take 1 Univers -clavulanat 2- [id number] tablet by i ty of e 875-125 00:00: mouth [place] mg per 00 every 12 Medical tablet (twelve) Branch hours. ondansetron 2021-05 Yes [id number] 4mg Take 1 Univers 4 mg 2 [id number] tablet by ity of disintegrat 00:00: mouth [place] ing tablet 00 every 8 Medica l (eight) Branch hours as needed for Nausea and Vomiting (N/V). zoster 2021-05- Yes [id number] .5mL 0.5 mL by Univers vaccine, 0-14 [...] o f 1 mg tablet 19:28: at [place] [address] bedtime. Medical Branch traZODone 0 Yes 50mg Take 50 mg Un matt 100 mg 9-27 by mouth ity of tablet 19:28: at [place] [address] bedtime. Medical Branch hydralAZINE 0 Yes 25mg [...] o f 1 mg tablet 19:28: at [place] [address] bedtime. Medical Branch traZODone 2021-0 Yes 50mg Take 50 mg Un matt 100 mg 9-27 by mouth ity of tablet 19:28: at [place] [address] bedtime. Medical Branch hydralAZINE 2021-0 Yes 25mg [...] 100 mg 04 (two) Medical tablet times [place] daily. amLODIPine 2021-0 Yes 10mg Take 10 mg U nivers (NORVASC) 9-27 by mouth ity of 10 mg 19:28: daily. [place] tablet 04 Medical Branch clonazePAM 2021-0 Yes 1mg Take 1 mg Un matt (KLONOPIN) 9-27 by mouth ity o f 1 mg tablet 19:28: at [place] [address] bedtime. Medical Branch traZODone 2021-0 Yes 50mg Take 50 mg Un matt 100 mg 9-27 by mouth ity of tablet 19:28: at [place] [address] bedtime. Medical Branch hydralAZINE 2021-0 Yes 25mg [...] o f 1 mg tablet 19:28: at [place] [address] bedtime. Medical Branch traZODone 2-0 Yes 50mg Take 50 mg Un matt 100 mg 9-27 by mouth ity of tablet 19:28: at [place] [address] bedtime. Medical Branch hydralAZINE 2021-0 Yes 25mg [...] o f 1 mg tablet 19:28: at [place] [address] bedtime. Medical Branch traZODone 2-0 Yes 50mg Take 50 mg Un matt 100 mg 9-27 by mouth ity of tablet 19:28: at [place] [address] bedtime. Medical Branch hydralAZINE 2-0 Yes 25mg [...] o f 1 mg tablet 19:28: at [place] [address] bedtime. Medical Branch traZODone 2021-0 Yes 50mg Take 50 mg Un matt 100 mg 9-27 by mouth ity of tablet 19:28: at [place] [address] bedtime. Medical Branch hydralAZINE 2021-0 Yes 25mg [...] o f 1 mg tablet 19:28: at [place] [address] bedtime. Medical Branch traZODone 2021-0 Yes 50mg Take 50 mg Un matt 100 mg 9-27 by mouth ity of tablet 19:28: at [place] 04 bedtime. Medical [place] cefpodoxime 2021-0 2021- Yes [id number] 200mg Take 1 Univers 200 mg 02-16 tablet by ity of tablet 00:00: 04:59 mouth in [place] 00 :00 the Medical morning Branch and 1 tablet in the evening. Do all this for 3 days. cefpodoxime 0 2021- Yes [id number] 200mg Take 1 Univers 200 mg 02-16 tablet by ity of tablet 00:00: 04:59 mouth in [place] 00 :00 the [facility] morning Branch and 1 tablet in the evening. Do all this for 3 days. haloperidol 2021- No 2mg 2 mg, Slow Univers lactate 02-15 IV Push, ity of (HALDOL) 09:00: 09:12 ONCE, 1 [place] injection 2 00 :00 dose, On Medi porfirio mg [facility] 02/15/22 at 0400, Routine hydroCHLORO 0 Yes 25mg 25 mg, [facility] [place] [facility] ers thiazide 9-25 Oral, ity of (ESIDRIX) 14:00: DAILY, [place] capsule 25 00 First dose Med ical mg on [place] Branch 02/14/22 at 0900, Until Discontinu ed, Routine butalbital- 0 Yes 1{tbl} 1 tablet, [facility] acetaminoph -24 Oral, ity of en-caff 18:46: Q6HPRN, [place] (ESGIC) 06 Starting Medical 50-325-40 on [facility] Branch mg tablet 1 02/13/22 at tablet 1346, Until Discontinu ed, Routine, headaches dicyclomine 0 Yes 10mg 10 mg, Univ ers (BENTYL) 9-24 Oral, QID, ity o f capsule 10 17:00: First dose [place] mg 00 on [facility] Medical 02/13/22 at Branch 1200, Until Discontinu [...] of 2,000 mg in 17:00: 18:24 Piggyback, [place] NaCl 0.9% 00 :00 Q24H ABX, Medic [...] 00 :00 dose, On Medic al mg [facility] Branch 02/11/22 at 1645, Routine nitroglycer Yes .4mg 0.4 mg, Uni vers in 02-11 Sublingual ity of (NITROSTAT) 21:31: , Q5MIN [place] sublingual 20 PRN, Medical tablet 0.4 Starting Branc h mg on [facility] 02/11/22 at 1631, Until Discontinu ed, [...] (MYCOLOG) 19:00: dose on [place] cream 00 [facility] Medical 02/11/22 at Branch 1400, Until Discontinu ed, Routine busPIRone Yes 30mg 30 mg, Univer s (BUSPAR) 02-11 Oral, BID, ity o f tablet 30 18:00: First dose [place] mg 00 on [facility] Medical 02/11/22 at Branch 1300, Until Discontinu ed, Routine raltegravir Yes 400mg 400 mg, Un matt (ISENTRESS) 02-11 Oral, BID, it y of tablet 400 18:00: First dose [place] mg 00 on [facility] Medical 02/11/22 at Branch 1300, Until Discontinu ed, JOE metoprolol 2021-0 Yes 100mg 100 mg, Uni vers tartrate 02-11 Oral, BID, ity o f (LOPRESSOR) 18:00: First dose [place] tablet 100 00 on [facility] Medical mg 02/11/22 at Branch 1300, Until Discontinu ed, Routine lisinopriL 0 Yes 40mg 40 mg, Unive rs (PRINIVIL,Z 02-11 Oral, BID, it y of ESTRIL) 18:00: First dose [place] tablet 40 00 on [facility] Medical mg 02/11/22 at Branch 1300, Until Discontinu ed, Routine emtricitabi 0 Yes 1{tbl} 1 tablet, Univers ne-tenofovi 02-11 Oral, ity of r alafen 18:00: DAILY, [place] (DESCOVY) 00 First dose Medi porfirio tablet 1 on [facility] tablet 02/11/22 at 1300, Until Discontinu ed, Routine ipratropium 0 Yes .5mg 0.5 mg, Uni vers (ATROVENT) 02-11 Inhalation ity of 0.02 % 17:57: , QIDPRN, [place] nebulizer 10 Starting Medica l solution on [facility] Branch 0.5 mg 02/11/22 at 1257, Until Discontinu ed, Routine, Wheezing, Shortness of Breath amLODIPine 0 Yes 10mg 10 mg, Unive rs (NORVASC) 02-11 Oral, ity of tablet 10 17:30: DAILY, [place] mg 00 First dose Medical (after Branch last modificati on) on [facility] 02/11/22 at 1230, Until Discontinu ed, Routine hydrALAZINE 0 2021- No 25mg 25 mg, Uni vers (APRESOLINE 02-11 Oral, ity of ) tablet 25 17:30: 12:54 DAILY, [place] mg 00 :55 First dose Medical (after Branch last modificati on) on [facility] 02/11/22 at 1230, Until Discontinu ed, [...] Oral, ity of (TYLENOL 14:06: 17:37 Q6HPN, [place] #3) 300-30 19 :24 Starting Medic al mg tablet 1 on [place] Branch tablet 02/11/22 at 0906, Until Tue02/12/22 at 1237, Routine, Pain (scale 4-6) sennosides- 0 Yes 1{tbl} 1 tablet, Univers docusate 02-11 Oral, ity of sodium 14:06: QDAILYPRN, [place] (SENOKOT-S) 09 Starting Medi porfirio 8.6-50 mg on [facility] Branch per tablet 02/11/22 at 1 tablet 0906, Until Discontinu ed, Routine, Constipati on ondansetron 0 Yes 4mg 4 mg, Slow Univers (ZOFRAN 02-11 IV Push, ity of (PF)) 14:05: [facility], [place] injection 4 59 Starting Medi porfirio mg on [place] Branch 02/11/22 at 0905, Until Discontinu ed, Routine, Nausea and Vomiting (N/V) acetaminoph 2021-0 Yes 650mg 650 mg, Un matt en 02-11 Oral, ity of (TYLENOL) 14:04: [facility], [place] tablet 650 37 Starting Medic al [...] ity of ) 25 mg 09:10: daily. [facility] Branch amLODIPine Yes 10mg Take 10 mg U nivers (NORVASC) 02-11 by mouth ity of 10 mg 09:10: daily. [facility] Branch piperacilli 2021- No 3.375g 3.375 g, Univers n-tazobacta 02-11 IV ity of m (ZOSYN) 08:30: 09:28 [place], [place] 3.375 g in 00 :00 ONCE, 1 Medica l NaCl 0.9% dose, On Branch (NS) 50 mL [place] MINI-BAG 02/11/22 at 0330, Administer over 30 Minutes, 50 mL
R ajsmin for Anti-Infec tive: Empiric Therapy for Suspected Infection< br>Empiric Therapy Site: Blood
D uration of therapy: 72 hours iopamidol 2021- No [id number] 60mL 60 mL, Univers (ISOVUE 02-11 Intravenou [...] Branch 02/11/22 at 0015, JOE emtricitabi Yes [id number] Take one Univers ne-tenofovi 9-12 po daily ity of r alafen 00:00: [place] (DESCOVY) 00 Medical tablet Branch emtricitabi Yes [id number] Take one Univers ne-tenofovi 9-12 po daily ity of r alafen 00:00: [place] (DESCOVY) 00 Medical tablet Branch emtricitabi Yes [id number] Take one Univers ne-tenofovi 9-12 po daily ity of r alafen 00:00: [place] (DESCOVY) 00 Medical tablet Branch emtricitabi Yes [id number] Take one Univers ne-tenofovi 9-12 po daily ity of r alafen 00:00: [place] (DESCOVY) 00 Medical tablet Branch emtricitabi Yes [id number] Take one Univers ne-tenofovi 9-12 po daily ity of r alafen 00:00: [place] (DESCOVY) 00 Medical tablet Branch emtricitabi Yes [id number] Take one Univers ne-tenofovi 9-12 po daily ity of r alafen 00:00: [place] (DESCOVY) 00 Medical tablet Branch emtricitabi Yes [id number] Take one Univers ne-tenofovi 9-12 po daily ity of r alafen 00:00: [place] (DESCOVY) 00 Medical tablet Branch emtricitabi 2021-0 Yes [id number] Take one Univers ne-tenofovi 9-12 po daily ity of r alafen 00:00: [place] (DESCOVY) 00 Medical tablet Branch naproxen 2021-0 Yes [id number] 500mg Take 1 U nivers (NAPROSYN) 7-24 tablet by ity of 500 mg 00:00: mouth in [place] tablet 00 the Medical morning Branch and 1 tablet in the evening. Take with meals. methocarbam 2021-0 Yes [id number] 500mg Take 1 Univers oL 500 mg 7-24 tablet by ity o f tablet 00:00: mouth 4 () Medical times Branch daily. naproxen 2021-0 Yes [id number] 500mg Take 1 U nivers (NAPROSYN) 7-24 tablet by ity of 500 mg 00:00: mouth in [place] tablet 00 the Medical morning Branch and 1 tablet in the evening. Take with meals. methocarbam 2021-0 Yes [id number] 500mg Take 1 Univers oL 500 mg 7-24 tablet by ity o f tablet 00:00: mouth 4 (four) Medical times Branch daily. naproxen 2021-0 Yes [id number] 500mg Take 1 U nivers (NAPROSYN) 7-24 tablet by ity of 500 mg 00:00: mouth in [place] tablet 00 the Medical morning Branch and 1 tablet in the evening. Take with meals. methocarbam 2021-0 Yes [id number] 500mg Take 1 Univers oL 500 mg 7-24 tablet by ity o f tablet 00:00: mouth 4 [place] (four) Medical times Branch daily. esomeprazol 2021- [...] ty of mg tablet 09:11: 00:00 (two) [place] 35 :00 times Medical daily. Branch traZODONE 2021- No Take by [facility] [place] [facility] ers (DESYREL) 11-20 mouth at ity o f 10 mg/mL 09:10: 00:00 [place]time. [place] oral 28 :00 Medical suspension Branch hydralAZINE Yes 25mg Take 25 mg Univers (APRESOLINE 11-20 by mouth ity of ) 25 mg 08:47: daily. [place] tablet 47 Medical Branch cephALEXin 2021- No [id number] 500mg Take 1 Univers (KEFLEX) 10-24 capsule [...] 7-10). Indication s: acute pain buPROPion Yes [id number] 150mg Take 1 U nivers XL 4-12 tablet by ity of (WELLBUTRIN 00:00: mouth [place] XL) 150 mg 00 daily. Medical 24 hr Branch tablet busPIRone Yes [id number] 30mg Take 1 Un matt 30 mg 4-12 tablet by ity of tablet 00:00: mouth 2 [place] 00 (two) Medical times Branch daily. SERTraline Yes [id number] 200mg Take 2 Univers 100 mg 4-12 tablets by ity of tablet 00:00: mouth [place] 00 daily. Medical Branch buPROPion Yes [id number] 150mg Take 1 U nivers XL 4-12 tablet by ity of (WELLBUTRIN 00:00: mouth [place] XL) 150 mg 00 daily. Medical 24 hr Branch tablet busPIRone Yes [id number] 30mg Take 1 Un matt 30 mg 4-12 tablet by ity of tablet 00:00: mouth 2 [place] 00 (two) Medical times Branch daily. SERTraline 2021-0 Yes [id number] 200mg Take 2 Univers 100 mg 4-12 tablets by ity of tablet 00:00: mouth [place] 00 daily. Medical Branch buPROPion 2021-0 Yes [id number] 150mg Take 1 U nivers XL 4-12 tablet by ity of (WELLBUTRIN 00:00: mouth [place] XL) 150 mg 00 daily. Medical 24 hr Branch tablet busPIRone 2021-0 Yes [id number] 30mg Take 1 Un matt 30 mg 4-12 tablet by ity of tablet 00:00: mouth 2 [place] 00 (two) Medical times Branch daily. SERTraline 2021-0 Yes [id number] 200mg Take 2 Univers 100 mg 4-12 tablets by ity of tablet 00:00: mouth [place] 00 daily. Medical Branch buPROPion 2021-0 Yes [id number] 150mg Take 1 U nivers XL 4-12 tablet by ity of (WELLBUTRIN 00:00: mouth [place] XL) 150 mg 00 daily. Medical 24 hr Branch tablet busPIRone 2021-0 Yes [id number] 30mg Take 1 Un matt 30 mg 4-12 tablet by ity of tablet 00:00: mouth 2 00 (two) Medical times Branch daily. SERTraline 2021-0 Yes [id number] 200mg Take 2 Univers 100 mg 4-12 tablets by ity of tablet 00:00: mouth [place] 00 daily. Medical Branch buPROPion 2021-0 Yes [id number] 150mg Take 1 U nivers XL 4-12 tablet by ity of (WELLBUTRIN 00:00: mouth [place] XL) 150 mg 00 daily. Medical 24 hr Branch tablet busPIRone 2021-0 Yes [id number] 30mg Take 1 Un matt 30 mg 4-12 tablet by ity of tablet 00:00: mouth 2 [place] 00 (two) Medical times Branch daily. SERTraline 2021-0 Yes [id number] 200mg Take 2 Univers 100 mg 4-12 tablets by ity of tablet 00:00: mouth [place] 00 daily. Medical Branch buPROPion 2021-0 Yes [id number] 150mg Take 1 U nivers XL 4-12 tablet by ity of (WELLBUTRIN 00:00: mouth [place] XL) 150 mg 00 daily. Medical 24 hr Branch tablet busPIRone 2021-0 Yes [id number] 30mg Take 1 Un matt 30 mg 4-12 tablet by ity of tablet 00:00: mouth 2 [place] 00 (two) Medical times Branch daily. SERTraline 2021-0 Yes [id number] 200mg Take 2 Univers 100 mg 4-12 tablets by ity of tablet 00:00: mouth [place] 00 daily. Medical Branch buPROPion 2021-0 Yes [id number] 150mg Take 1 U nivers XL 4-12 tablet by ity of (WELLBUTRIN 00:00: mouth [place] XL) 150 mg 00 daily. Medical 24 hr Branch tablet busPIRone 2021-0 Yes [id number] 30mg Take 1 Un matt 30 mg 4-12 tablet by ity of tablet 00:00: mouth 2 [place] 00 (two) Medical times Branch daily. SERTraline 0 Yes [id number] 200mg Take 2 Univers 100 mg 4-12 tablets by ity of tablet 00:00: mouth [place] 00 daily. Medical Branch buPROPion 2021-0 Yes [id number] 150mg Take 1 U nivers XL 4-12 tablet by ity of (WELLBUTRIN 00:00: mouth [place] XL) 150 mg 00 daily. Medical 24 hr Branch tablet busPIRone 2021-0 Yes [id number] 30mg Take 1 Un matt 30 mg 4-12 tablet by ity of tablet 00:00: mouth 2 [place] 00 (two) Medical times Branch daily. SERTraline 2021-0 Yes [id number] 200mg Take 2 Univers 100 mg 4-12 tablets by ity of tablet 00:00: mouth [place] 00 daily. Medical Branch buPROPion 2021-0 Yes [id number] 150mg Take 1 U nivers XL 4-12 tablet by ity of (WELLBUTRIN 00:00: mouth [place] XL) 150 mg 00 daily. Medical 24 hr Branch tablet busPIRone 2021-0 Yes [id number] 30mg Take 1 Un matt 30 mg 4-12 tablet by ity of tablet 00:00: mouth 2 [place] 00 (two) Medical times Branch daily. SERTraline 2021-0 Yes [id number] 200mg Take 2 Univers 100 mg 4-12 tablets by ity of tablet 00:00: mouth [place] 00 daily. Medical Branch raltegravir 2021-0 Yes [id number] 400mg Take 1 Univers (ISENTRESS) 3-28 tablet by ity of 400 mg 00:00: mouth 2 [place] tablet 00 (two) Medical times Branch daily. raltegravir 2021-0 Yes [id number] 400mg Take 1 Univers (ISENTRESS) 3-28 tablet by ity of 400 mg 00:00: mouth 2 [place] tablet 00 (two) Medical times Branch daily. raltegravir 2021-0 Yes [id number] 400mg Take 1 Univers (ISENTRESS) 3-28 tablet by ity of 400 mg 00:00: mouth 2 [place] tablet 00 (two) Medical times Branch daily. raltegravir 2021-0 Yes [id number] 400mg Take 1 Univers (ISENTRESS) 3-28 tablet by ity of 400 mg 00:00: mouth 2 [place] tablet 00 (two) Medical times Branch daily. raltegravir 2021-0 Yes [id number] 400mg Take 1 Univers (ISENTRESS) 3-28 tablet by ity of 400 mg 00:00: mouth 2 [place] tablet 00 (two) Medical times Branch daily. raltegravir 0 Yes [id number] 400mg Take 1 Univers (ISENTRESS) 3-28 tablet by ity of 400 mg 00:00: mouth 2 [place] tablet 00 (two) Medical times Branch daily. raltegravir 0 Yes [id number] 400mg Take 1 Univers (ISENTRESS) 3-28 tablet by ity of 400 mg 00:00: mouth 2 [place] tablet 00 (two) Medical times Branch daily. raltegravir 2021-0 Yes [id number] 400mg Take 1 Univers (ISENTRESS) 3-28 tablet by ity of 400 mg 00:00: mouth 2 [place] tablet 00 (two) Medical times Branch daily. raltegravir 2021-0 Yes [id number] 400mg Take 1 Univers (ISENTRESS) 3-28 tablet by ity of 400 mg 00:00: mouth 2 [place] tablet 00 (two) Medical times Branch daily. LORazepam 1 0 2021- No [id number] 1mg Take 1 Univers mg tablet 3-10 [...] times a tablet day. emtricitabi 2021- No [id number] Take one Univers ne-tenofovi -20 09-12 po daily ity of r alafen 00:00: 00:00 [place] (DESCOVY) 00 :00 Medical tablet Branch metoprolol Yes [id number] Take 1 [place] tartrate 7-26 tablet Health (Lopressor) 00:00: (100 mg 100 MG 00 total) by tablet mouth 2 (two) times a day AND 0.5 tablets (50 mg total) every night. metoprolol Yes [id number] Take 1 [place] tartrate 7-26 tablet Health [...] area in groin) hydrALAZINE 2020-0 Yes 50mg Q.[id number] Take 50 mg Methodi (APRESOLINE 7-19 [id number] mouth [address] ) 50 MG [...] (affected area in groin) hydrALAZINE Yes 50mg Q.[id number] Take 50 mg Methodi (APRESOLINE 7-19 [id number] by mouth 3 [facility] ) 50 MG [...] area in groin) hydrALAZINE 0 Yes 50mg Q.[id number] Take 50 mg Methodi (APRESOLINE 7-19 [id number] by mouth 3 st ) 50 MG [...] area in groin) hydrALAZINE 2020-0 Yes 50mg Q.[id number] Take 50 mg Methodi (APRESOLINE 7-19 [id number] [address] mouth [address] ) 50 MG [...] (affected area in groin) hydrALAZINE Yes 50mg Q.[id number] Take 50 mg [facility] (APRESOLINE 7-19 [id number] by mouth 3 st ) 50 MG [...] (affected area in groin) hydrALAZINE Yes 50mg Q.[id number] Take 50 mg [facility] (APRESOLINE 7-19 [id number] by mouth 3 st ) 50 MG [...] area in groin) hydrALAZINE 0 Yes 50mg Q.[id number] Take 50 mg [facility] (APRESOLINE 7-19 [id number] by mouth 3 st ) 50 MG [...] (affected area in groin) hydrALAZINE Yes 50mg Q.[id number] Take 50 mg [facility] (APRESOLINE 7-19 [id number] by mouth 3 st ) 50 MG [...] (affected area in groin) hydrALAZINE Yes 50mg Q.[id number] Take 50 mg [facility] (APRESOLINE 7-19 [id number] by mouth 3 st ) 50 MG [...] area in groin) hydrALAZINE 0 Yes 50mg Q.[id number] Take 50 mg [facility] (APRESOLINE 7-19 [id number] by mouth 3 st ) 50 MG [...] area in groin) hydrALAZINE 0 Yes 50mg Q.[id number] Take 50 mg [facility] (APRESOLINE 7-19 3310898875 by mouth 3 st ) 50 MG [...] (affected area in groin) hydrALAZINE Yes 50mg Q.[id number] Take 50 mg [facility] (APRESOLINE 7-19 [address]157241458 by mouth 3 st ) 50 MG [...] area in groin) hydrALAZINE 0 Yes 50mg Q.[id number] Take 50 mg [facility] (APRESOLINE 7-19 [id number] by mouth 3 st ) 50 MG [...] area in groin) hydrALAZINE 0 Yes 50mg Q.[id number] Take 50 mg [facility] (APRESOLINE 7-19 1259528833 by mouth 3 st ) 50 MG [...] (affected area in groin) hydrALAZINE Yes 50mg Q.[id number] Take 50 mg [facility] (APRESOLINE 7-19 [id number] by mouth 3 st ) 50 MG [...] area in groin) hydrALAZINE 0 Yes 50mg Q.[id number] Take 50 mg [facility] (APRESOLINE 7-19 [id number] by mouth 3 st ) 50 MG [...] area in groin) hydrALAZINE 0 Yes 50mg Q.[id number] Take 50 mg [facility] (APRESOLINE 7-19 [id number] by mouth 3 st ) 50 MG [...] (affected area in groin) hydrALAZINE Yes 50mg Q.[id number] Take 50 mg [facility] (APRESOLINE 7-19 [id number] by mouth 3 st ) 50 MG [...] area in groin) hydrALAZINE 0 Yes 50mg Q.[id number] Take 50 mg [facility] (APRESOLINE 7-19 [id number] by mouth 3 st ) 50 MG [...] area in groin) hydrALAZINE 0 Yes 50mg Q.[id number] Take 50 mg [facility] (APRESOLINE 7-19 [id number] by mouth 3 st ) 50 MG [...] (affected area in groin) hydrALAZINE Yes 50mg Q.[id number] Take 50 mg [facility] (APRESOLINE 7-19 [id number] by mouth 3 st ) 50 MG [...] (affected area in groin) hydrALAZINE Yes 50mg Q.[id number] Take 50 mg [facility] (APRESOLINE 7-19 [id number] by mouth 3 st ) 50 MG [...] area in groin) hydrALAZINE 0 Yes 50mg Q.[id number] Take 50 mg [facility] (APRESOLINE 7-19 [id number] by mouth 3 st ) 50 MG [...] (two) l tablet times a day. nystatin-tr 202-0 Yes [id number] Apply to [facility] iamcinolone 7-06 area(s) 3 ity of cream 00:00: (three) [place] 00 times Medical daily. Branch nystatin-tr 2021-0 Yes [id number] Apply to [facility] iamcinolone 7-06 area(s) 3 ity of cream 00:00: (three) [place] 00 times Medical daily. Branch nystatin-tr 2021-0 Yes [id number] Apply to [facility] iamcinolone 7-06 area(s) 3 ity of cream 00:00: (three) [place] 00 times Medical daily. Branch nystatin-tr 2020-0 Yes [id number] Apply to [facility] iainolone 7-06 area(s) 3 ity of cream 00:00: (three) [place] 00 times Medical daily. Branch nystatin-tr 1-0 Yes [id number] Apply to [facility] iamcinolone 7-06 area(s) 3 ity of cream 00:00: (three) [place] 00 times Medical daily. Branch nystatin-tr 1-0 Yes [id number] Apply to [facility] iamcinolone 7-06 area(s) 3 ity of cream 00:00: (three) [place] 00 times Medical daily. Branch nystatin-tr 2020-0 Yes [id number] Apply to [facility] iamcinolone 7-06 area(s) 3 ity of cream 00:00: (three) [place] 00 times Medical daily. Branch nystatin-tr 1-0 Yes [id number] Apply to [facility] iamcinolone 7-06 area(s) 3 ity of cream 00:00: (three) [place] 00 times Medical daily. Branch nystatin-tr 2020-0 Yes [id number] Apply to [facility] iamcinolone 7-06 area(s) 3 ity of cream 00:00: (three) [place] 00 times Medical daily. Branch budesonide- 2020-0 2020- No 1{puff} QD Inhale 1 [facility] formoteroL 11-14 06-[address] (SYMBICORT) 14:37: 00:00 morning. H [facility] 160-4.5 02 :00 l mcg/actuati on inhaler hydrALAZINE 0 Yes [id number] 50mg Q.[id number] Take 1 [place] (Apresoline 6-11 [id number] tablet (50 Health ) 50 MG 00:00: 3D mg total) tablet 00 by mouth 3 (three) times a day. hydrALAZINE 2020-0 Yes [id number] 50mg Q.[id number] Take 1 [facility] (Apresoline 6-11 [id number] tablet (50 Health ) 50 MG 00:00: [...] % 00:00: ointment 00 nystatin 2020- No [id number] Q.25D Take 5 mL [facility] (MYCOSTATIN 17 [...] e 4-10 Tablet l 14:00: should not [place] 00 be chewed or crushed. (Same as: Protonix) Amiodarone No Notes: Memor ia 4-10 (Same as: l 14:00: Cordarone) Amlodipine No Notes: Memor ia 4-10 (Same as: l 14:00: Norvasc) Sloan 00 emtricitabi No Notes: Caesar lisa ne [...] e 4-10 Tablet l 14:00: should not [place] 00 be chewed or crushed. (Same as: [...] e 4-10 Tablet l 14:00: should not [place] 00 be chewed or crushed. (Same as: Protonix) Amiodarone No Notes: Memor ia 4-10 (Same as: l 14:00: Cordarone) [place] Amlodipine No Notes: Memor ia 4-10 (Same as: l 14:00: Norvasc) Marty emtricitabi No Notes: Caesar lisa ne 200 MG / 4-10 (Same as: l tenofovir 14:00: Descovy) Herm ariel alafenamide 00 Non-formul 25 MG Oral nancy Tablet [Descovy] Sertraline No Notes: Memor ia 4-10 (Same as: l 14:00: Zoloft) [place] 00 pantoprazol No Notes: Caesar lisa e 4-10 Tablet l 14:00: should not Marty 00 be chewed or crushed. (Same as: Protonix) Amiodarone No Notes: Memor ia 4-10 (Same as: l 14:00: Cordarone) [place] 00 Amlodipine No Notes: Memor ia 4-10 (Same as: l 14:00: Norvasc) [place] 00 emtricitabi No Notes: Caesar lisa ne 200 MG / 4-10 (Same as: l tenofovir 14:00: Descovy) Herm ariel alafenamide 00 Non-formul 25 MG Oral nancy Tablet [Descovy] Sertraline No Notes: Memor ia 4-10 (Same as: l 14:00: Zoloft) Marty 00 pantoprazol No Notes: Caesar lisa e 4-10 Tablet l 14:00: should not [place] 00 be chewed or crushed. (Same as: [...] M emoria 4-10 interfere l 02:00: w/enteral [place] 00 feeds - Take 1 hr before or 2 hr after antacids, dairy pdt, meals & minerals - On empty stomach. For patients unable to swallow tablet, dissolve in 10mL - 30mL of water or juice and stir before giving. (Same As: Carafate) Saline No Notes: [facility] Flush 0.9% 4-10 (Same as: l 02:00: BD [place] 00 Posiflush) Eliquis No Notes: Memoria 4-10 [...] 0.9% 4-10 (Same as: l 02:00: BD [place] Posiflush) Eliquis No Notes: Memoria 4-10 Same [...] 0.9% 4-10 (Same as: l 02:00: BD [place] 00 Posiflush) Eliquis No Notes: Memoria 4-10 Same as: l 02:00: Eliquis [place] Hydralazine No Notes: Caesar lisa Hydrochlori 4-10 (Same as: l de 50 MG 02:00: Apresoline Her mitchell Oral Tablet 00 ) May interfere w/enteral feedings Take With Food Sucralfate No Notes: May M emoria 4-10 interfere l 02:00: w/enteral [place] 00 feeds - Take 1 hr before [...] Memoria 4-10 Same as: l 02:00: Eliquis [place] Hydralazine No Notes: Caesar lisa Hydrochlori 4-10 (Same as: l de 50 MG 02:00: Apresoline Her mitchell Oral Tablet 00 ) May interfere w/enteral feedings Take With Food Sucralfate No Notes: May M emoria 4-10 interfere l 02:00: w/enteral [place] 00 feeds - Take 1 hr before [...] not exceed l #3 00:12: 4gm/day of [place] acetaminop hen. (Same as: Tylenol with Codeine # 3) acetaminoph No Notes: Do M emoria en-codeine 4-10 not exceed l #3 00:12: 4gm/day of [place] acetaminop hen. (Same as: Tylenol with Codeine # 3) acetaminoph No Notes: Do M emoria en-codeine 4-10 not exceed l #3 00:12: 4gm/day of Marty acetaminop hen. (Same as: Tylenol with Codeine # 3) acetaminoph No Notes: Do M emoria en-codeine 4-10 not exceed l #3 00:12: 4gm/day of [place] acetaminop hen. (Same as: Tylenol with Codeine [...] l Tablet 22:00: Route: [facility], [facility]ylar [facility] Drug form: TAB, BID, Dosing [...] tartrate -09 tab, l 22:00: Route: PO, Sloan 00 Drug form: TAB, BID, Dosing Weight [...] oria 4-09 tab, l 22:00: Route: PO, [place] 00 Drug form: TAB, BID, Dosing Weight [...] oria -09 tab, l 22:00: Route: PO, [place] 00 Drug form: TAB, BID, Dosing Weight [...] Notes: Memoria 4-09 (Same l 17:07: as:MORPhin [place] 00 e Sulfate) Morphine No Notes: Memoria [...] 30 tab, 0 coated Refill(s), tablet Pharmacy: [facility] 149, 162.56, cm, 08/29/20 5:30:00 CDT, Height, 97.273, kg, 08/29/20 5:30:00 CDT, Weight pantoprazol 2021-0 Yes 40 mg = 1 M emoria e 40 mg 4-09 tab, PO, l oral 15:27: Daily, # Marty enteric 00 30 tab, 0 coated Refill(s), tablet [facility], 162.56, cm, 08/29/20 5:30:00 CDT, Height, 97.273, kg, 08/29/20 5:30:00 CDT, Weight pantoprazol 2021-0 Yes 40 mg = 1 M emoria e 40 mg 4-09 tab, PO, l oral 15:27: Daily, # Marty enteric 00 30 tab, 0 coated Refill(s), tablet [facility], 162.56, cm, 08/29/20 5:30:00 CDT, Height, 97.273, kg, 08/29/20 5:30:00 CDT, Weight pantoprazol 2021-0 Yes 40 mg = 1 M emoria e 40 mg 4-09 tab, PO, l oral 15:27: Daily, # Marty enteric 00 30 tab, 0 coated Refill(s), tablet Pharmacy: [facility] 149, 162.56, cm, 08/29/20 5:30:00 CDT, Height, 97.273, kg, 08/29/20 5:30:00 CDT, Weight pantoprazol 2021-0 Yes 40 mg = 1 M emoria e 40 mg 4-09 tab, PO, l oral 15:27: Daily, # Marty enteric 00 30 tab, 0 coated Refill(s), tablet Pharmacy: [facility] 149, 162.56, cm, 08/29/20 5:30:00 CDT, Height, 97.273, kg, 08/29/20 5:30:00 CDT, Weight pantoprazol 2021-0 Yes 40 mg = 1 M emoria e 40 mg 4-09 tab, PO, l oral 15:27: Daily, # Marty enteric 00 30 tab, 0 coated Refill(s), tablet [facility], 162.56, cm, 08/29/20 5:30:00 CDT, Height, 97.273, kg, 08/29/20 5:30:00 CDT, Weight pantoprazol 2020-0 Yes 40 mg = 1 M emoria e 40 mg 4-09 tab, PO, l oral 15:27: Daily, # Marty enteric 00 30 tab, 0 coated Refill(s), tablet Pharmacy: [facility] 149, 162.56, cm, 08/29/20 5:30:00 CDT, Height, 97.273, kg, 08/29/20 5:30:00 CDT, Weight pantoprazol 2020-0 No 40 mg = 1 M emoria e 40 mg 4-09 tab, PO, l oral 15:26: Daily, # [place] enteric 00 30 tab, 0 coated Refill(s) tablet sucralfate 2020-0 Yes 1 gm = 1 Mem oria 1 g oral 4-09 tab, PO, l tablet 15:26: Q12H, # 28 Skylar nn 00 tab, 0 Refill(s), Pharmacy: [facility] 149, 162.56, cm, [...] Skylar nn 00 tab, 0 Refill(s), Pharmacy: [facility] 149, 162.56, cm, [...] Skylar nn 00 tab, 0 Refill(s), Pharmacy: [facility] 149, 162.56, cm, 08/29/20 5:30:00 CDT, Height, 97.273, kg, 08/29/20 5:30:00 CDT, Weight pantoprazol 2020-0 No 40 mg = 1 M emoria e 40 mg 4-09 tab, PO, l oral 15:26: Daily, # [place] enteric 00 30 tab, 0 coated Refill(s) tablet sucralfate 2020-0 Yes 1 gm = 1 Mem oria 1 g oral 4-09 tab, PO, l tablet 15:26: Q12H, # 28 Skylar nn 00 tab, 0 Refill(s), Pharmacy: [facility] 149, 162.56, cm, 08/29/20 5:30:00 CDT, Height, 97.273, kg, 08/29/20 5:30:00 CDT, Weight pantoprazol 2020-0 No 40 mg = 1 M emoria e 40 mg 4-09 tab, PO, l oral 15:26: Daily, # [place] enteric 00 30 tab, 0 coated Refill(s) tablet sucralfate 2020-0 Yes 1 gm = 1 Mem oria 1 g oral 4-09 tab, PO, l tablet 15:26: Q12H, # 28 Skylar nn 00 tab, 0 Refill(s), Pharmacy: [place] [id number], 162.56, cm, 08/29/20 5:30:00 CDT, Height, 97.273, kg, 08/29/20 5:30:00 CDT, Weight pantoprazol 2020-0 No 40 mg = 1 M emoria e 40 mg 4-09 tab, PO, l oral 15:26: Daily, # [place] enteric 00 30 tab, 0 coated Refill(s) tablet sucralfate 2020-0 Yes 1 gm = 1 Mem oria 1 g oral 4-09 tab, PO, l tablet 15:26: Q12H, # 28 Skylar nn 00 tab, 0 Refill(s), Pharmacy: [facility] 149, 162.56, cm, [...] Skylar nn 00 tab, 0 Refill(s), Pharmacy: [facility] 149, 162.56, cm, 08/29/20 5:30:00 CDT, Height, 97.273, kg, 08/29/20 5:30:00 CDT, Weight Saline No Notes: Memoria Flush 0.9% 4-09 (Same as: l 15:25: BD [place] 00 Posiflush) Lorazepam No Notes: Memori a 4-09 (Same as: l 15:25: Ativan) Saline No Notes: Memoria Flush 0.9% 4-09 (Same as: l 15:25: BD Marty 00 Posiflush) Lorazepam No Notes: Memori a 4-09 (Same as: l 15:25: Ativan) Saline No Notes: Memoria Flush 0.9% 4-09 (Same as: l 15:25: BD [place] 00 Posiflush) Saline No Notes: Memoria Flush 0.9% 4-09 (Same as: l 15:25: BD [place] 00 Posiflush) Lorazepam No Notes: Memori a 4-09 (Same as: l 15:25: Ativan) Lorazepam No Notes: Memori a 4-09 (Same as: l 15:25: Ativan) Saline No Notes: Memoria Flush 0.9% 4-09 (Same as: l 15:25: BD [place] 00 Posiflush) Lorazepam No Notes: Memori a 4-09 (Same as: l 15:25: Ativan) Saline No Notes: Memoria Flush 0.9% 08-29 (Same as: l 15:25: BD [place] 00 Posiflush) Lorazepam No Notes: Memori a - (Same as: l 15:25: Ativan) Marty 00 Saline No Notes: Memoria Flush 0.9% 08-29 (Same as: l 15:25: BD [place] 00 Posiflush) Lorazepam No Notes: Memori a - (Same as: l 15:25: Ativan) Isuprel HCl No Route: IV, Memoria (ANES) 0.2 08-29 Drug form: l mg + 15:00: INJ, Sloan Dosing Weight 97.3, kg, Start date: 08/29/20 10:00:00 CDT, Stop date: 08/29/20 11:00:00 CDT Isuprel HCl No Route: IV, Memoria (ANES) 0.2 08-29 Drug form: l mg + 15:00: INJ, [place] 00 Dosing Weight 97.3, kg, Start date: [...] Drug form: l mg + 15:00: INJ, Sloan Dosing Weight 97.3, kg, Start date: 08/29/20 [...] 08-29 Drug form: l 14:18: INJ, ONCE, [place] 00 Stop date: 08/29/20 9:18:00 CDT heparin [...] oria ne 08-29 Route: l 14:01: IVP, [place] 00 Q5Min, Dosing Weight 97.273, kg, PRN [...] 08-29 Route: PO, l 14:01: Drug form: [place] 00 TAB, ONCE, Dosing Weight 97.273, kg, [...] oria ne 08-29 Route: l 14:01: IVP, [place] 00 Q5Min, Dosing Weight 97.273, kg, PRN [...] Memori a 08-29 Route: l 14:01: IVP, [place] 00 Q2MIN, Dosing Weight 97.273, kg, PRN [...] Memori a 08-29 Route: l 14:01: IVP, [place] 00 Q5Min, Dosing Weight 97.273, kg, PRN Elevated BP, Start date: 08/29/20 9:01:00 CDT, Duration: 5 doses or times, Stop date: Limited # of times Acetaminoph 1-0 No 1,000 mg, M emoria en 08-29 Route: PO, l 14:01: Drug form: Sloan 00 TAB, ONCE, Dosing Weight 97.273, kg, [...] Memori a 08-29 Route: l 14:01: IVP, [place] 00 Q5Min, Dosing Weight 97.273, kg, PRN Elevated BP, Start date: 08/29/20 9:01:00 CDT, Duration: 5 doses or times, Stop date: Limited # of times Acetaminoph 1-0 No 1,000 mg, M emoria en 08-29 Route: PO, l 14:01: Drug form: Sloan 00 TAB, ONCE, Dosing Weight 97.273, kg, [...] oria ne 08-29 Route: l 14:01: IVP, [place] 00 Q5Min, Dosing Weight 97.273, kg, PRN Pain Score 7-10, Start date: 08/29/20 9:01:00 CDT, Duration: 4 doses or times, Stop date: Limited # of times Labetalol 2021-0 No 10 mg, Memori a 08-29 Route: l 14:01: IVP, [place] 00 Q5Min, Dosing Weight 97.273, kg, PRN Elevated BP, Start date: 08/29/20 9:01:00 CDT, Duration: 5 doses or times, Stop date: Limited # of times Acetaminoph 2021-0 No 1,000 mg, M emoria en 08-29 Route: PO, l 14:01: Drug form: Sloan 00 TAB, ONCE, Dosing Weight 97.273, kg, [...] times Flumazenil 2021-0 No 0.2 mg, Caesar lsia 08-29 Route: l 14:01: IVP, PRN, Sloan 00 Dosing Weight 97.273, kg, PRN Benzodiaze [...] lisa 08-29 Route: l 14:01: IVP, PRN, [place]loan 00 Dosing Weight 97.273, kg, PRN Benzodiaze [...] ia 08-29 Route: l 14:01: IVP, ONCE, [place] 00 Dosing Weight 97.273, kg, PRN Nausea & Vomiting, Start date: 08/29/20 9:01:00 CDT Labetalol 1-0 No 10 mg, Memori a 08-29 Route: l 14:01: IVP, [place] 00 Q5Min, Dosing Weight 97.273, kg, PRN [...] oria ne 08-29 Route: l 14:01: IVP, [place] 00 Q5Min, Dosing Weight 97.273, kg, PRN [...] Memori a 08-29 Route: l 14:01: IVP, [place] 00 Q2MIN, Dosing Weight 97.273, kg, PRN Narcotic Reversal, Start date: 08/29/20 9:01:00 CDT, Duration: 8 doses or times, Stop date: Limited # of times Ondansetron 1-0 No 4 mg, Memor ia 08-29 Route: l 14:01: IVP, ONCE, Sloan 00 Dosing Weight 97.273, kg, PRN Nausea & Vomiting, Start date: 08/29/20 9:01:00 CDT Labetalol 1-0 No 10 mg, Memori a 08-29 Route: l 14:01: IVP, [place] 00 Q5Min, Dosing Weight 97.273, kg, PRN [...] oria ne 08-29 Route: l 14:01: IVP, [place] 00 Q5Min, Dosing Weight 97.273, kg, PRN [...] Drug form: l 10 13:15: INJ, Start 00 date: 08/29/20 8:15:00 CDT, Stop date: 08/29/20 9:15:00 CDT norepinephr 2021-0 No Route: IV, Memoria ine (ANES) 08-29 Drug form: l 10 13:15: INJ, Start Marty microgram 00 date: 08/29/20 8:15:00 CDT, Stop date: 08/29/20 9:15:00 CDT norepinephr 2021-0 No Route: IV, Memoria ine (ANES) 08-29 Drug form: l 10 13:15: INJ, Start Sloan microgram date: 08/29/20 8:15:00 CDT, Stop date: 08/29/20 9:15:00 CDT norepinephr 2020-0 No Route: IV, Memoria ine (ANES) 08-29 Drug form: l 10 13:15: INJ, Start Sloan microgram date: 08/29/20 8:15:00 CDT, Stop date: 08/29/20 9:15:00 CDT norepinephr 2020-0 No Route: IV, Memoria ine (ANES) 08-29 Drug form: l 10 13:15: INJ, Start Sloan microgram 00 date: 08/29/20 8:15:00 CDT, Stop date: 08/29/20 9:15:00 CDT norepinephr 2020-0 No Route: IV, Memoria ine (ANES) 08-29 Drug form: l 10 13:15: INJ, Start Sloan microgram 00 date: 08/29/20 8:15:00 CDT, Stop date: 08/29/20 9:15:00 CDT norepinephr 2021-0 No Route: IV, Memoria ine (ANES) 08-29 Drug form: l 10 13:15: INJ, Start Sloan microgram 00 date: 08/29/20 8:15:00 CDT, Stop [...] 4-09 Total l 0.9% IV 12:30: Volume: Sloan (ANES) 1000 00 1,000, mL Start date: 08/29/20 7:30:00 CDT, Stop date: 08/29/20 8:30:00 CDT Sodium 2021-0 No Route: IV, Memor ia Chloride 4-09 Total l 0.9% IV 12:30: Volume: Sloan (ANES) 1000 00 1,000, mL Start date: 08/29/20 7:30:00 CDT, Stop date: 08/29/20 8:30:00 CDT Sodium 2021-0 No Route: IV, Memor ia Chloride 4-09 Total l 0.9% IV 12:30: Volume: Sloan (ANES) 1000 00 1,000, mL Start date: 08/29/20 7:30:00 CDT, Stop date: 08/29/20 8:30:00 CDT Sodium 1-0 No Route: IV, Memor ia Chloride 4-09 Total l 0.9% IV 12:30: Volume: Sloan (ANES) 1000 00 1,000, mL Start date: 08/29/20 7:30:00 CDT, Stop date: 08/29/20 8:30:00 CDT Sodium 2021-0 No Route: IV, Memor ia Chloride 4-09 Total l 0.9% IV 12:30: Volume: Sloan (ANES) 1000 00 1,000, mL Start date: [...] PO, l Hydrochlori 11:42: Q24H, # 30 Sloan de 150 MG 00 tab, 0 Extended Refill(s) Release Tablet 24 HR Yes 150 mg = 1 Memori a Bupropion 4-09 tab, PO, l Hydrochlori 11:42: Q24H, # 30 Sloan de 150 MG 00 tab, 0 Extended Refill(s) Release Tablet 24 HR Yes 150 mg = 1 Memori a Bupropion 4-09 tab, PO, l Hydrochlori 11:42: Q24H, # 30 Marty de 150 MG 00 tab, 0 Extended Refill(s) Release Tablet 24 HR 2020-0 Yes 150 mg = 1 Memori a Bupropion 4- tab, PO, l Hydrochlori 11:42: Q24H, # 30 Sloan de 150 MG 00 tab, 0 Extended [...] 08-29 Q12H, tab, l Tablet 11:41: 0 Sloan [Eliquis] 00 Refill(s), For Atrial Fibrilatio n apixaban 2020-0 Yes 5 mg, PO, Me moria MG Oral 08-29 Q12H, tab, l Tablet 11:41: 0 Marty [Eliquis] 00 Refill(s), For Atrial Fibrilatio n apixaban 5 2020-0 Yes 5 mg, PO, Me moria MG Oral - Q12H, tab, l Tablet 11:41: 0 Sloan [Eliquis] 00 Refill(s), For Atrial Fibrilatio n [...] 4-09 Q12H, tab, l Tablet 11:41: 0 [place] [Eliquis] 00 Refill(s), For Atrial Fibrilatio n AMIODarone 2020-0 Yes 200 mg = 1 M emoria 200 mg oral 4-09 tab, PO, l tablet 11:38: Daily, # Sloan 00 90 tab, 3 Refill(s) AMIODarone 2020-0 Yes 200 mg = 1 M emoria 200 mg oral 4-09 tab, PO, l tablet 11:38: Daily, # Sloan 00 90 tab, 3 Refill(s) AMIODarone 2020-0 [...] tab, PO, l tablet 11:38: Daily, # Sloan 00 90 tab, 3 Refill(s) AMIODarone 2020-0 Yes 200 mg = 1 M emoria 200 mg oral 4-09 tab, PO, l tablet 11:38: Daily, # Sloan 00 90 tab, 3 Refill(s) AMIODarone 2020-0 Yes 200 mg = 1 M emoria 200 mg oral 4-09 tab, PO, l tablet 11:38: Daily, # Sloan 00 90 tab, 3 Refill(s) normal No 1,000 mL, Memori a saline 0.9% 08-29 Rate: 100 l IV 1,000 mL 10:30: ml/hr, Herm ariel 00 Infuse over: 10 hr, Route: IV, Dosing Weight 97.273 kg, Total Volume: 1,000, Start date: 08/29/20 5:30:00 CDT, Duration: 30 day, Stop date: 09/28/20 5:29:00 CDT, 2.13, m2, 0 normal 2020- No 1,000 mL, Memori a saline 0.9% [...] Eliquis 5 2020-0 Yes [facility] mg tablet 3-27 st 00:00: [...] [facility] ([facility] [address] Yes 400mg Q.5D Take 400 Met [facility]odi 400 mg 3-[address] tablet 00:00: mouth 2 [facility]ospita 00 (two) l times a day. [facility] [address] Yes 400mg Q.5D Take 400 Met hodi 400 mg 3-[address] tablet 00:00: mouth 2 [facility] 00 (two) [facility] [address] Yes 400mg Q.5D Take 400 Met hodi 400 mg 3-[address] tablet 00:00: mouth 2 [facility] 00 (two) l [facility] [address] Yes 400mg Q.5D Take 400 Met hodi 400 mg 3-[address] tablet 00:00: mouth 2 [facility]ospita 00 (two) l times a day. Immunizations Ordered Filled Immunization Date Status Comments [facility] e Immunization Name Name SARS-COV-2 COVID-19 2022-03-05 [...] [place] 65[place] PFIZER COVID-19 2020-07-23 Completed [facility] VACC[facility] 00:00:00 [facility] PFIZER COVID-19 2020-07-23 Completed [facility] VACCIN[facility] 00:00:00 [facility] PFIZER COVID-19 2020-07-23 Completed [facility] VACCIN[facility] 00:00:00 [facility] PFIZER COVID-19 2020-07-23 Completed [facility] VACCIN[facility] 00:00:00 [facility] PFIZER COVID-19 2020-07-23 Completed [facility] VACCINATION 00:00:00 [facility] PFIZER COVID-19 2020-07-23 Completed [facility] VACCINATION 00:00:00 [facility] PFIZER COVID-19 2020-07-23 Completed [facility] VACCINATION 00:00:00 [facility] PFIZER COVID-19 2020-07-23 Completed [facility] VACCIN[facility] 00:00:00 [facility] PFIZER COVID-19 2020-07-23 Completed [facility] VACCIN[facility] 00:00:00 [facility] PFIZER COVID-19 2020-07-23 Completed [facility] VACCIN[facility] 00:00:00 [facility] PFIZER COVID-19 2020-07-23 Completed [facility] VACC[facility] 00:00:00 [facility] PFIZER COVID-19 2020-07-23 Completed [facility] VACC[facility] 00:00:00 [facility] PFIZER COVID-19 2020-07-23 Completed [facility]ACC[facility] 00:00:00 [facility] PFIZER COVID-19 2020-07-23 Completed [facility] VACC[facility] 00:00:00 [facility] PFIZER COVID-19 2020-07-23 Completed [facility] VACC[facility] 00:00:00 [facility] PFIZER COVID-19 2020-07-23 Completed [facility]ACC[facility] 00:00:00 [facility] PFIZER COVID-19 2020-07-23 Completed [facility]ACC[facility] 00:00:00 [facility] PFIZER COVID-19 2020-07-23 Completed [facility]ACC[facility] 00:00:00 [facility] PFIZER COVID-19 2020-07-23 Completed [facility]:00 [facility] P[facility] COVID-19 2020-07-23 Completed [facility] VACC[facility] 00:00:00 [facility] PFIZER COVID-19 2020-07-23 Completed [facility] VACC[facility] 00:00:00 [facility] PFIZER COVID-19 2020-07-23 Completed [facility] VACC[facility] 00:00:00 [facility] SARS-COV-2 COVID-19 2020-07-23 Completed [facility] VACCINE 00:00:00 [facility] SARS-COV-2 COVID-19 2020-07-23 Completed [facility] P[facility] VACCINE 00:00:00 [facility] SARS-COV-2 COVID-19 2020-07-23 Completed [facility] P[facility] VACCINE 00:00:00 [facility] SARS-COV-2 COVID-19 2020-07-23 Completed [facility] VACCINE 00:00:00 [facility] SARS-COV-2 COVID-19 2020-07-23 Completed [facility] VACCINE 00:00:00 [facility] PFIZER COVID-19 2020-07-23 Completed [facility] [...] COVID-19 2020-07-02 Completed [facility]00 [facility] P[facility] COVID-19 2020-07-02 Completed [facility] [...] MRNA VACCINATION 00:00:00 [facility] SARS-COV-2 COVID-19 2020-07-02 Completed [facility] PFI[facility]ER VACCINE 00:00:00 [facility] SARS-COV-2 COVID-19 2020-07-02 Completed [facility] P[facility] VACCINE 00:00:00 [facility] SARS-COV-2 COVID-19 2020-07-02 Completed [facility] P[facility] VACCINE 00:00:00 [facility] SARS-COV-2 COVID-19 2020-07-02 Completed [facility]ER VACCINE 00:00:00 [facility] SARS-COV-2 COVID-19 2020-07-02 Completed Unive rsity of PFIZER VACCINE 00:00:00 [facility] PFIZER COVID-19 2020-07-02 Completed [facility] MRNA VACCINATION [...] [facility] Branch Pneumococcal 13 2014-01-30 Completed Universit y of Conjugate, PCV13 00:[facility] Influenza Virus 2014-01-30 Completed Universit y of Vaccine (3+ yrs) 00:00[facility] Pneumococcal 13 2014-01-30 Completed Universit y of Conjugate, PCV13 00:00:00 [facility] dical (Prevnar 13) Branch Influenza Virus 2014-01-30 Completed Universit y of Vaccine (3+ yrs) 00:00[facility] Pneumococcal 13 2014-01-30 Completed Universit y of Conjugate, PCV13 00:00:00 [facility] dical (Prevnar 13) Branch Influenza Virus 2014-01-30 Completed Universit y of Vaccine (3+ yrs) 00:00[facility] Pneumococcal 13 2014-01-30 Completed Universit y of Conjugate, PCV13 00:00:00 [facility] dical (Prevnar 13) Branch Influenza Virus 2014-01-30 Completed Universit y of Vaccine (3+ yrs) 00:00[facility] Pneumococcal 13 2014-01-30 Completed Universit y of Conjugate, PCV13 00:00:00 [facility] d[facility] (Prevnar 13) Branch Influenza Virus 2014-01-30 Completed Universit y of Vaccine (3+ yrs) 00:00[facility] Pneumococcal 13 2014-01-30 Completed Universit y of Conjugate, PCV13 00:00:00 [facility] d[facility] (Prevnar 13) Branch Influenza Virus 2014-01-30 Completed Universit y of Vaccine (3+ yrs) 00:00:00 [facility] Branch Pneumococcal 13 2014-01-30 Completed Universit y of Conjugate, PCV13 00:00:00 [facility] (Prevnar 13) Branch Influenza Virus 2014-01-30 Completed Universit y of Vaccine (3+ yrs) 00:00:00 [facility] Branch Pneumococcal 13 2014-01-30 Completed Universit y of Conjugate, PCV13 00:00:00 [facility] (Prevnar 13) Branch Influenza Virus 2014-01-30 Completed Universit y of Vaccine (3+ yrs) 00:00:00 [facility] Branch Pneumococcal 13 2014-01-30 Completed Universit y of Conjugate, PCV13 00:00:00 [facility] (Prevnar 13) Branch Pneumococcal 2012-02-16 Completed [...] 2011-09-01 Completed Unive rsity of Dosage 00:00:00 [facility] Hep B, Adol or Pedi 2011-09-01 Completed Unive rsity of Dosage 00:00:00 [facility] Hep B, Adol or Pedi 2011-03-17 Completed Unive rsity of Dosage 00:00:00 [facility] Hep B, Adol or Pedi 2011-03-17 Completed Unive rsity of Dosage 00:00:00 [facility] Hep B, Adol or Pedi 2011-03-17 Completed Unive rsity of Dosage 00:00:00 [facility] Hep B, Adol or Pedi 2011-03-17 Completed Unive rsity of Dosage 00:00:00 [facility] Hep B, Adol or Pedi 2011-03-17 Completed Unive rsity of Dosage 00:00:00 [facility] Hep B, Adol or Pedi 2011-03-17 Completed Unive rsity of Dosage 00:00:00 [facility] Hep B, Adol or Pedi 2011-03-17 Completed Unive rsity of Dosage 00:00:00 [facility] Hep B, Adol or Pedi 2011-03-17 Completed Unive rsity of Dosage 00:00:00 [facility] Hep B, Adol or Pedi 2011-03-17 Completed Unive rsity of Dosage 00:00:00 [facility] Influenza Virus 2011-02-10 Completed Universit y of Vaccine 00:00:00 [facility] Hep B, Adol or Pedi 2011-02-10 Completed Unive rsity of Dosage 00:00:00 [facility] Influenza Virus 2011-02-10 Completed Universit y of Vaccine 00:00:00 [facility] Hep B, Adol or Pedi 2011-02-10 Completed Unive rsity of Dosage 00:00:00 [facility] Influenza Virus 2011-02-10 Completed Universit y of Vaccine 00:00:00 [facility] Hep B, Adol or Pedi 2011-02-10 Completed Unive rsity of Dosage 00:00:00 [facility] Influenza Virus 2011-02-10 Completed Universit y of Vaccine 00:00:00 [facility] Hep B, Adol or Pedi 2011-02-10 [...] [facility] ical PPSV23 (PNEUMOVAX) Branch PPD (TB) 2001-10-04 [...] Completed University of 00:00:00 [facility] Vital Signs Vital Name Observation Time Observation Value Comments Source Systolic blood 2022-04-22 19:50:00 156 mm[Hg] Univer sity of pressure [facility] Diastolic blood 2022-04-22 19:50:00 89 mm[Hg] Unive rsity of pressure [facility] Heart rate 2022-04-22 19:50:00 69 /min [facility] Body temperature 2022-04-22 19:50:00 36.67 Amina Univ ersity of [facility] Respiratory rate 2022-04-22 19:50:00 17 /min Univ ers[facility] Body height 2022-04-22 19:50:00 162.6 cm [facility] Body weight 2022-04-22 19:50:00 80.74 kg [facility] BMI 2022-04-22 19:50:00 30.55 kg/m2 [facility] Oxygen saturation in 2022-04-22 19:50:00 96 /min University of Arterial blood by [facility] porfirio Pulse oximetry Branch Systolic blood 2022-02-16 21:41:00 169 mm[Hg] Univer sity of pressure [facility] Diastolic blood 2022-02-16 21:41:00 86 mm[Hg] Unive rsity of pressure [facility] Heart rate 2022-02-16 21:41:00 51 /min [facility] Body temperature 2022-02-16 21:41:00 36.56 Amina Univ ers[facility] of [facility] Respiratory rate 2022-02-16 21:41:00 17 /min Univ ersity of [facility] Oxygen saturation in 2022-02-16 21:41:00 98 /min University of Arterial blood by [facility] Pulse oximetry Branch Body height 2022-02-11 16:02:00 162.6 cm Universi ty [facility] Body weight 2022-02-11 16:02:00 79.379 kg [facility] BMI 2022-02-11 16:02:00 30.04 kg/m2 [facility] Systolic blood 2021-11-20 13:47:00 165 mm[Hg] Univer sity of pressure [facility] Diastolic blood 2021-11-20 13:47:00 83 mm[Hg] Unive rsity of pressure [facility] Heart rate 2021-11-20 13:47:00 58 /min [facility] Body temperature 2021-11-20 13:42:00 36.39 Amina Univ ersity of [facility] Respiratory rate 2021-11-20 13:42:00 16 /min Univ ersity of [facility] Body height 2021-11-20 13:42:00 162.6 cm Universi ty of [facility] Body weight 2021-11-20 13:42:00 84.369 kg Universi ty of [facility] BMI 2021-11-20 13:42:00 31.93 kg/m2 Universi ty [facility] Systolic blood 2021-07-14 15:18:00 142 [...] 15:23:00 167 mm[Hg] Univer sity of pressure [facility] Diastolic blood 2022-03-05 15:23:00 105 mm[Hg] Unive rsity of [facility] Heart rate 2022-03-05 15:23:00 49 /min Universi ty [facility] Body temperature 2022-03-05 15:18:00 36.67 Amina [facility] Respiratory rate 2022-03-05 15:18:00 18 /[facility] Body height 2022-03-05 15:18:00 162.6 cm Universi ty [facility] Body weight 2022-03-05 15:18:00 74.707 kg Universi ty [facility] BMI 2022-03-05 15:18:00 28.27 kg/m2 Universi ty [facility] Oxygen saturation in 2022-02-16 21:41:00 98 /min [facility] Arterial blood by [facility] Pulse oximetry Branch Systolic blood 2020-12-08 15:48:00 125 mm[Hg] [facility] pressure Diastolic blood 2020-12-08 15:48:00 76 mm[Hg] [facility] pressure Heart rate 2020-12-08 15:48:00 64 /min [facility] Body temperature 2020-12-08 15:48:00 36.61 Amina [facility] Respiratory rate 2020-12-08 15:48:00 17 /min [facility] Body height 2020-12-08 15:48:00 162.6 cm [facility] Body weight 2020-12-08 15:48:00 98.884 kg [facility] BMI 2020-12-08 15:48:00 37.42 kg/m2 [facility] Oxygen saturation in 2020-12-08 15:48:00 97 /min [facility] Arterial blood by Pulse oximetry Respitory Rate 2020-08-30 13:00:00 [facility] Systolic (mm Hg) 2020-08-30 13:00:00 Caesar rial [facility]loan Diastolic (mm Hg) 2020-08-30 13:00:00 Mem orial [facility]loan Systolic (mm Hg) 2020-08-30 11:00:00 Caesar [facility]loan Diastolic (mm Hg) 2020-08-30 11:00:00 Mem orial [facility] Temperature Oral (F) 2020-08-30 11:00:00 98.4 F [facility] Respitory Rate 2020-08-30 11:00:00 Memori al Marty Respitory Rate 2020-08-30 10:00:00 [facility] Systolic (mm Hg) 2020-08-30 10:00:00 Caesar rial Marty Diastolic (mm Hg) 2020-08-30 10:00:00 Mem orial Marty Temperature Oral (F) 2020-08-30 00:00:00 96.9 F [facility] Temperature Oral (F) 2020-08-29 11:26:00 97.6 F [facility] Height 2020-08-29 10:30:00 162.56 cm [facility] Weight 2020-08-29 10:30:00 [facility] BMI Calculated 2020-08-29 10:30:00 [facility] Procedures Procedure Date / Time Performing Clinician Source Performed BASIC METABOLIC PANEL (NA, 2022-04-22 21:23:00 Paulette Gray [facility] K, CL, CO2, GLUCOSE, BUN, Medica l Branch CREATININE, CA) CBC WITH DIFF 2022-04-22 21:23:00 Paulette Gray [facility] o f [facility] CONSENT/REFUSAL FOR 2022-04-22 19:45:46 Doctor Unassigned, [facility] DIAGNOSIS AND TREATMENT [facility] SARS-COV-2 COVID-19 2022-03-05 16:09:27 [facility] DIMITRIS-SUCROSE VACCINE 12 Medical Branch YRS+, BIVALENT 0.3ML, IM, (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) FLU 2022-03-05 16:09:27 [facility] VACC(),65+YR,0.5 Medica l Branch ML,IM,ADJUVANTED,QUAD(FLUA D) MAGNESIUM 2022-02-15 09:41:00 Radha Sofia [facility] BASIC METABOLIC PANEL (NA, 2022-02-15 09:41:00 Radha Sofia [facility] K, CL, CO2, GLUCOSE, BUN, Medica l Branch CREATININE, CA) CBC WITH DIFF 2022-02-15 09:41:00 Radha [facility] N-TERMINAL PRO-BNP 2022-02-15 09:41:00 Sofia Garcia [facility] CBC WITH DIFF 2022-02-15 09:41:00 Radha Sofia [facility] BASIC METABOLIC PANEL (NA, 2022-02-15 09:41:00 Sofia Garcia [facility] K, CL, CO2, GLUCOSE, BUN, Medica l Branch CREATININE, CA) MAGNESIUM 2022-02-15 09:41:00 Radha [facility] N-TERMINAL PRO-BNP 2022-02-15 09:41:00 Sofia Garcia [facility] BASIC METABOLIC PANEL (NA, 2022-02-13 09:40:00 Sofia Garcia [facility] K, CL, CO2, GLUCOSE, BUN, Medica l Branch CREATININE, CA) CBC WITH DIFF 2022-02-13 09:40:00 Radha Sofia [facility] BASIC METABOLIC PANEL (NA, 2022-02-13 09:40:00 Sofia Garcia [facility] K, CL, CO2, GLUCOSE, BUN, Medica l Branch CREATININE, CA) CBC WITH DIFF 2022-02-13 09:40:00 [facility] 2022-02-11 23:41:00 Radha [facility] N-TERMINAL PRO-BNP 2022-02-11 23:41:00 [facility] 2022-02-11 23:41:00 [facility] N-[facility]MINAL PRO-BNP 2022-02-11 23:41:00 [facility] ROUTINE & RHYTHM 2022-02-11 22:15:36 Sof[facility]TTE[facility] 2022-02-11 21:26:50 [facility]TTE[facility] 2022-02-11 21:26:50 [facility] PELVIS W 2022-02-11 07:45:43 Miguelangel Reilly [facility] CONTRAST [facility] CT ABDOMEN PELVIS W 2022-02-11 07:45:43 Miguelangel Reilly [facility] RAPID INFLUENZA A/B 2022-02-11 06:54:00 Miguelangel Reilly [facility] RAPID INFLUENZA A/B 2022-02-11 06:54:00 Reilly Means [facility] URINALYSIS 2022-02-11 06:45:00 Reilly Means [facility] URINE CULTURE 2022-02-11 06:45:00 Reilly Means [facility] URINALYSIS 2022-02-11 06:45:00 Reilly Means [facility] URINE CULTURE 2022-02-11 06:45:00 Reilly Means [facility] HB ECG ROUTINE & RHYTHM 2022-02-11 05:22:08 Reilly Means [facility] HB ECG ROUTINE & RHYTHM 2022-02-11 05:22:08 Reilly Means [facility] BLOOD CULTURE SCREEN 2022-02-11 04:58:00 Reilly Means [facility] TROPONIN I 2022-02-11 04:58:00 Reilly Means [facility] COMP. METABOLIC PANEL 2022-02-11 04:58:00 Reilly Means [facility] ([id number]) Medical Branch CBC WITH DIFF 2022-02-11 04:58:00 Reilly Means [facility] PROTHROMBIN TIME / INR 2022-02-11 04:58:00 Reilly Means [facility] ACTIVATED PARTIAL THRMPLAS 2022-02-11 04:58:00 Reilly Means [facility] N-TERMINAL PRO-BNP 2022-02-11 04:58:00 Reilly Means [facility] LACTIC ACID WHOLE BLOOD 2022-02-11 04:58:00 Reilly Means [facility] COVID-19 (ID NOW RAPID 2022-02-11 04:58:00 Reilly Means [facility] TESTING) Medical Branch LAB ONLY COVID 2022-02-11 04:58:00 Reilly Means [facility] CBC WITH DIFF 2022-02-11 04:58:00 Reilly Means [facility] ACTIVATED PARTIAL THRMPLAS 2022-02-11 04:58:00 Reilly Means [facility] PROTHROMBIN TIME / INR 2022-02-11 04:58:00 Reilly Means [facility] COVID-19 (ID NOW RAPID 2022-02-11 04:58:00 Reilly Means [facility] TESTING) Medical Branch COMP. METABOLIC PANEL 2022-02-11 04:58:00 Reilly Means [facility] ([id number]) Medical Branch TROPONIN I 2022-02-11 04:58:00 Reilly Means [facility] N-TERMINAL PRO-BNP 2022-02-11 04:58:00 Reilly Means [facility] BLOOD CULTURE SCREEN 2022-02-11 04:58:00 Reilly Means [facility] LACTIC ACID WHOLE BLOOD 2022-02-11 04:58:00 Reilly Means [facility] LAB ONLY COVID 2022-02-11 04:58:00 Reilly Means [facility] Branch XR CHEST 1 VW 2022-02-11 04:27:42 Miguelangel Reilly [facility] XR CHEST 1 VW 2022-02-11 04:27:42 Reilly Means [facility] HOSPITAL ADMISSION 2022-02-10 05:01:00 Doctor Unassigned, [facility] Name [facility] HOSPITAL ADMISSION 2022-02-10 05:01:00 Doctor Unassigned, [facility] ECG 12-LEAD 2021-07-14 15:14:00 [facility] [id number] 2021-06-17 00:00:00 RIKY CLARK [facility] GASTROINTESTINAL PANEL 2020-12-08 22:21:00 [facility]BD[facility] 1 VW 2020-12-08 18:06:32 Eliseo Arce spital OR [place] < 1 HOUR 2020-09-05 22:39:00 Eliseo Arce spital SURGICAL PATHOLOGY REQUEST 2020-09-05 21:54:00 [facility] CHEST 1 VW PORTABLE 2020-09-05 19:55:00 [facility] DISCHARGE PATIENT 2020-09-05 17:27:55 Lucas [facility] MI AN ELECTIVE 2020-09-05 16:47:23 [facility] EGD, INTRAOPERATIVE 2020-09-05 16:27:00 Eliseo Arce [facility] PARTIAL THROMBOPLASTIN 2020-09-05 15:04:00 Sarai Maharaj [facility] TIME (PTT) M. PROTHROMBIN TIME WITH INR 2020-09-05 15:04:00 Mindy Maharaj [facility] MChelsie Plan of Care Planned Activity Planned Date Details Comments Source Future Scheduled 2022-04-25 SHINGLES VACCINES (1 Met [facility] Test 01:45:02 of 2) [code = SHINGLES VACCINES (1 of 2)] Future Scheduled 2022-04-25 BREAST CANCER [facility] Test 01:45:02 SCREENING [code = BREAST CANCER SCREENING] Future Scheduled 2022-04-25 COLONOSCOPY SCREENING Me [facility] Test 01:45:02 [code = COLONOSCOPY SCREENING] Future Scheduled 2022-04-25 HEPATITIS B VACCINES Met [facility] Test 01:45:02 (1 of 3 - Risk 3-dose series) [code = HEPATITIS B VACCINES (1 of 3 - Risk 3-dose series)] Future Scheduled 2022-04-25 COVID-19 VACCINE (3 - [facility] Test 01:45:02 Booster for Pfizer series) [code = COVID-19 VACCINE (3 - Booster for Pfizer series)] Future Scheduled 2022-04-25 65+ [facility]OCOCCAL [facility] 01:[facility]:02 VACCINE (4 - PPSV23 if available, else PCV20) [code = 65+ PNEUMOCOCCAL VACCINE (4 - PPSV23 if available, else PCV20)] Future Scheduled 2022-04-25 INFLUENZA VACCINE Method [facility] Test 01:45:02 [code = INFLUENZA VACCINE] Future Scheduled 2022-03-25 SHINGLES VACCINES (1 Met [facility] Test 14:48:42 of 2) [code = SHINGLES VACCINES (1 of 2)] Future Scheduled 2022-03-25 BREAST CANCER [facility] Test 14:48:42 SCREENING [code = BREAST CANCER SCREENING] Future Scheduled 2022-03-25 COLONOSCOPY SCREENING [facility] Test 14:48:42 [code = COLONOSCOPY SCREENING] Future Scheduled 2022-03-25 HEPATITIS B VACCINES Met [facility] Test 14:48:42 (1 of 3 - Risk 3-dose series) [code = HEPATITIS B VACCINES (1 of 3 - Risk 3-dose series)] Future Scheduled 2022-03-25 COVID-19 VACCINE (3 - Me [facility] Test 14:48:42 Booster for Pfizer series) [code = COVID-19 VACCINE (3 - Booster for Pfizer series)] Future Scheduled 2022-03-25 65+ [facility]OCOCCAL [facility] Test 14:48:42 VACCINE (4 - PPSV23 if available, else PCV20) [code = 65+ PNEUMOCOCCAL VACCINE (4 - PPSV23 if available, else PCV20)] Future Scheduled 2022-03-25 INFLUENZA VACCINE Method [facility] Test 14:48:42 [code = INFLUENZA VACCINE] Future Scheduled 2022-03-25 SHINGLES VACCINES (1 Met [facility] Test 14:48:42 of 2) [code = SHINGLES VACCINES (1 of 2)] Future Scheduled 2022-03-25 BREAST CANCER [facility] Test 14:48:42 SCREENING [code = BREAST CANCER SCREENING] Future Scheduled 2022-03-25 COLONOSCOPY SCREENING [facility] Test 14:48:42 [code = COLONOSCOPY SCREENING] Future Scheduled 2022-03-25 HEPATITIS B VACCINES Met [facility] Test 14:48:42 (1 of 3 - Risk 3-dose series) [code = HEPATITIS B VACCINES (1 of 3 - Risk 3-dose series)] Future Scheduled 2022-03-25 COVID-19 VACCINE (3 - [facility] Test 14:48:42 Booster for Pfizer series) [code = COVID-19 VACCINE (3 - Booster for Pfizer series)] Future Scheduled 2022-03-25 65+ [facility]CCAL [facility] Test 14:48:42 VACCINE (4 - PPSV23 if available, else PCV20) [code = 65+ PNEUMOCOCCAL VACCINE (4 - PPSV23 if available, else PCV20)] Future Scheduled 2022-03-25 INFLUENZA VACCINE Method [facility] Test 14:48:42 [code = INFLUENZA VACCINE] Future Scheduled 2022-03-25 SHINGLES VACCINES (1 Met [facility] Test 14:48:42 of 2) [code = SHINGLES VACCINES (1 of 2)] Future Scheduled 2022-03-25 BREAST CANCER [facility] Test 14:48:42 SCREENING [code = BREAST CANCER SCREENING] Future Scheduled 2022-03-25 COLONOSCOPY SCREENING [facility] Test 14:48:42 [code = COLONOSCOPY SCREENING] Future Scheduled 2022-03-25 HEPATITIS B VACCINES Met [facility] Test 14:48:42 (1 of 3 - Risk 3-dose series) [code = HEPATITIS B VACCINES (1 of 3 - Risk 3-dose series)] Future Scheduled 2022-03-25 COVID-19 VACCINE (3 - [facility] Test 14:48:42 Booster for Pfizer series) [code = COVID-19 VACCINE (3 - Booster for Pfizer series)] Future Scheduled 2022-03-25 65+ [facility]CCAL [facility] 14:48:42 VACCINE (4 - PPSV23 if available, else PCV20) [code = 65+ PNEUMOCOCCAL VACCINE (4 - PPSV23 if available, else PCV20)] Future Scheduled 2022-03-25 INFLUENZA VACCINE Method [facility] Test 14:48:42 [code = INFLUENZA VACCINE] Future Scheduled 2022-03-25 SHINGLES VACCINES (1 Met [facility] Test 14:48:42 of 2) [code = SHINGLES VACCINES (1 of 2)] Future Scheduled 2022-03-25 BREAST CANCER [facility] Test 14:48:42 SCREENING [code = BREAST CANCER SCREENING] Future Scheduled 2022-03-25 COLONOSCOPY SCREENING [facility] Test 14:48:42 [code = COLONOSCOPY SCREENING] Future Scheduled 2022-03-25 HEPATITIS B VACCINES Met [facility] Test 14:48:42 (1 of 3 - Risk 3-dose series) [code = HEPATITIS B VACCINES (1 of 3 - Risk 3-dose series)] Future Scheduled 2022-03-25 COVID-19 VACCINE (3 - [facility] Test 14:48:42 Booster for Pfizer series) [code = COVID-19 VACCINE (3 - Booster for Pfizer series)] Future Scheduled 2022-03-25 65+ [facility]CCAL [facility] Test 14:48:42 VACCINE (4 - PPSV23 if available, else PCV20) [code = 65+ PNEUMOCOCCAL VACCINE (4 - PPSV23 if available, else PCV20)] Future Scheduled 2022-03-25 INFLUENZA VACCINE Method [facility] Test 14:48:42 [code = INFLUENZA VACCINE] Future Scheduled 2022-03-25 SHINGLES VACCINES (1 Met [facility] Test 14:48:42 of 2) [code = SHINGLES VACCINES (1 of 2)] Future Scheduled 2022-03-25 BREAST CANCER [facility] Test 14:48:42 SCREENING [code = BREAST CANCER SCREENING] Future Scheduled 2022-03-25 COLONOSCOPY SCREENING [facility] Test 14:48:42 [code = COLONOSCOPY SCREENING] Future Scheduled 2022-03-25 HEPATITIS B VACCINES Met [facility] Test 14:48:42 (1 of 3 - Risk 3-dose series) [code = HEPATITIS B VACCINES (1 of 3 - Risk 3-dose series)] Future Scheduled 2022-03-25 COVID-19 VACCINE (3 - Me [facility] Test 14:48:42 Booster for Pfizer series) [code = COVID-19 VACCINE (3 - Booster for Pfizer series)] Future Scheduled 2022-03-25 65+ PNEUMOCOCCAL [facility] Test 14:48:42 VACCINE (4 - PPSV23 if available, else PCV20) [code = 65+ PNEUMOCOCCAL VACCINE (4 - PPSV23 if available, else PCV20)] Future Scheduled 2022-03-25 INFLUENZA VACCINE Method [facility] Test 14:48:42 [code = INFLUENZA VACCINE] Future Scheduled 2022-03-25 SHINGLES VACCINES (1 Met [facility] Test 14:48:42 of 2) [code = SHINGLES VACCINES (1 of 2)] Future Scheduled 2022-03-25 BREAST CANCER [facility] Test 14:48:42 SCREENING [code = BREAST CANCER SCREENING] Future Scheduled 2022-03-25 COLONOSCOPY SCREENING [facility] Test 14:48:42 [code = COLONOSCOPY SCREENING] Future Scheduled 2022-03-25 HEPATITIS B VACCINES Met [facility] Test 14:48:42 (1 of 3 - Risk 3-dose series) [code = HEPATITIS B VACCINES (1 of 3 - Risk 3-dose series)] Future Scheduled 2022-03-25 COVID-19 VACCINE (3 - [facility] Test 14:48:42 Booster for Pfizer series) [code = COVID-19 VACCINE (3 - Booster for Pfizer series)] Future Scheduled 2022-03-25 65+ PNEUMOCOCCAL [facility] Test 14:48:42 VACCINE (4 - PPSV23 if available, else PCV20) [code = 65+ PNEUMOCOCCAL VACCINE (4 - PPSV23 if available, else PCV20)] Future Scheduled 2022-03-25 INFLUENZA VACCINE Method [facility] Test 14:48:42 [code = INFLUENZA VACCINE] Future Scheduled 2022-03-25 SHINGLES VACCINES (1 Met [facility] Test 14:48:42 of 2) [code = SHINGLES VACCINES (1 of 2)] Future Scheduled 2022-03-25 BREAST CANCER [facility] Test 14:48:42 SCREENING [code = BREAST CANCER SCREENING] Future Scheduled 2022-03-25 COLONOSCOPY SCREENING [facility] Test 14:48:42 [code = COLONOSCOPY SCREENING] Future Scheduled 2022-03-25 HEPATITIS B VACCINES Met [facility] Test 14:48:42 (1 of 3 - Risk 3-dose series) [code = HEPATITIS B VACCINES (1 of 3 - Risk 3-dose series)] Future Scheduled 2022-03-25 COVID-19 VACCINE (3 - [facility] Test 14:48:42 Booster for Pfizer series) [code = COVID-19 VACCINE (3 - Booster for Pfizer series)] Future Scheduled 2022-03-25 65+ [facility]CCAL [facility] 14:48:42 VACCINE (4 - PPSV23 if available, else PCV20) [code = 65+ PNEUMOCOCCAL VACCINE (4 - PPSV23 if available, else PCV20)] Future Scheduled 2022-03-25 INFLUENZA VACCINE Method [facility] Test 14:48:42 [code = INFLUENZA VACCINE] Future Scheduled 2022-03-25 SHINGLES VACCINES (1 Met [facility] Test 14:48:42 of 2) [code = SHINGLES VACCINES (1 of 2)] Future Scheduled 2022-03-25 BREAST CANCER [facility] Test 14:48:42 SCREENING [code = BREAST CANCER SCREENING] Future Scheduled 2022-03-25 COLONOSCOPY SCREENING [facility] Test 14:48:42 [code = COLONOSCOPY SCREENING] Future Scheduled 2022-03-25 HEPATITIS B VACCINES Met [facility] Test 14:48:42 (1 of 3 - Risk 3-dose series) [code = HEPATITIS B VACCINES (1 of 3 - Risk 3-dose series)] Future Scheduled 2022-03-25 COVID-19 VACCINE (3 - [facility] Test 14:48:42 Booster for Pfizer series) [code = COVID-19 VACCINE (3 - Booster for Pfizer series)] Future Scheduled 2022-03-25 65+ [facility] 14:48:42 VACCINE (4 - PPSV23 if available, else PCV20) [code = 65+ PNEUMOCOCCAL VACCINE (4 - PPSV23 if available, else PCV20)] Future Scheduled 2022-03-25 INFLUENZA VACCINE Method [facility] Test 14:48:42 [code = INFLUENZA VACCINE] Future Scheduled 2022-03-25 SHINGLES VACCINES (1 Met [facility] Test 14:48:42 of 2) [code = SHINGLES VACCINES (1 of 2)] Future Scheduled 2022-03-25 BREAST CANCER [facility] Test 14:48:42 SCREENING [code = BREAST CANCER SCREENING] Future Scheduled 2022-03-25 COLONOSCOPY SCREENING Me [facility] Test 14:48:42 [code = COLONOSCOPY SCREENING] Future Scheduled 2022-03-25 HEPATITIS B VACCINES Met [facility] Test 14:48:42 (1 of 3 - Risk 3-dose series) [code = HEPATITIS B VACCINES (1 of 3 - Risk 3-dose series)] Future Scheduled 2022-03-25 COVID-19 VACCINE (3 - [facility] Test 14:48:42 Booster for Pfizer series) [code = COVID-19 VACCINE (3 - Booster for Pfizer series)] Future Scheduled 2022-03-25 65+ [facility]CCAL [facility] 14:48:42 VACCINE (4 - PPSV23 if available, else PCV20) [code = 65+ PNEUMOCOCCAL VACCINE (4 - PPSV23 if available, else PCV20)] Future Scheduled 2022-03-25 INFLUENZA VACCINE Method [facility] Test 14:48:42 [code = INFLUENZA VACCINE] Future Scheduled 2022-03-04 SHINGLES VACCINES (1 Met [facility] Test 14:03:57 of 2) [code = SHINGLES VACCINES (1 of 2)] Future Scheduled 2022-03-04 BREAST CANCER [facility] Test 14:03:57 SCREENING [code = BREAST CANCER SCREENING] Future Scheduled 2022-03-04 COLONOSCOPY SCREENING [facility] Test 14:03:57 [code = COLONOSCOPY SCREENING] Future Scheduled 2022-03-04 HEPATITIS B VACCINES Met [facility] Test 14:03:57 (1 of 3 - Risk 3-dose series) [code = HEPATITIS B VACCINES (1 of 3 - Risk 3-dose series)] Future Scheduled 2022-03-04 COVID-19 VACCINE (3 - [facility] Test 14:03:57 Booster for Pfizer series) [code = COVID-19 VACCINE (3 - Booster for Pfizer series)] Future Scheduled 2022-03-04 65+ [facility] 14:03:57 VACCINE (4 - PPSV23 if available, else PCV20) [code = 65+ PNEUMOCOCCAL VACCINE (4 - PPSV23 if available, else PCV20)] Future Scheduled 2022-03-04 INFLUENZA VACCINE Method [facility] Test 14:03:57 [code = INFLUENZA VACCINE] Future Scheduled 2022-03-04 SHINGLES VACCINES (1 Met [facility] Test 14:03:57 of 2) [code = SHINGLES VACCINES (1 of 2)] Future Scheduled 2022-03-04 BREAST CANCER [facility] Test 14:03:57 SCREENING [code = BREAST CANCER SCREENING] Future Scheduled 2022-03-04 COLONOSCOPY SCREENING [facility] Test 14:03:57 [code = COLONOSCOPY SCREENING] Future Scheduled 2022-03-04 HEPATITIS B VACCINES Met [facility] Test 14:03:57 (1 of 3 - Risk 3-dose series) [code = HEPATITIS B VACCINES (1 of 3 - Risk 3-dose series)] Future Scheduled 2022-03-04 COVID-19 VACCINE (3 - [facility] Test 14:03:57 Booster for Pfizer series) [code = COVID-19 VACCINE (3 - Booster for Pfizer series)] Future Scheduled 2022-03-04 65+ PNEUMOCOCCAL [facility] Test 14:03:57 VACCINE (4 - PPSV23 if available, else PCV20) [code = 65+ PNEUMOCOCCAL VACCINE (4 - PPSV23 if available, else PCV20)] Future Scheduled 2022-03-04 INFLUENZA VACCINE Method [facility] Test 14:03:57 [code = INFLUENZA VACCINE] Future Scheduled 2022-03-04 SHINGLES VACCINES (1 Met [facility] Test 14:03:57 of 2) [code = SHINGLES VACCINES (1 of 2)] Future Scheduled 2022-03-04 BREAST CANCER [facility] Test 14:03:57 SCREENING [code = BREAST CANCER SCREENING] Future Scheduled 2022-03-04 COLONOSCOPY SCREENING [facility] Test 14:03:57 [code = COLONOSCOPY SCREENING] Future Scheduled 2022-03-04 HEPATITIS B VACCINES Met [facility] Test 14:03:57 (1 of 3 - Risk 3-dose series) [code = HEPATITIS B VACCINES (1 of 3 - Risk 3-dose series)] Future Scheduled 2022-03-04 COVID-19 VACCINE (3 - [facility] Test 14:03:57 Booster for Pfizer series) [code = COVID-19 VACCINE (3 - Booster for Pfizer series)] Future Scheduled 2022-03-04 65+ [facility]AL [facility] 14:03:57 VACCINE (4 - PPSV23 if available, else PCV20) [code = 65+ PNEUMOCOCCAL VACCINE (4 - PPSV23 if available, else PCV20)] Future Scheduled 2022-03-04 INFLUENZA VACCINE Method [facility] Test 14:03:57 [code = INFLUENZA VACCINE] Future Scheduled 2022-03-04 SHINGLES VACCINES (1 Met [facility] Test 14:03:57 of 2) [code = SHINGLES VACCINES (1 of 2)] Future Scheduled 2022-03-04 BREAST CANCER [facility] Test 14:03:57 SCREENING [code = BREAST CANCER SCREENING] Future Scheduled 2022-03-04 COLONOSCOPY SCREENING [facility] Test 14:03:57 [code = COLONOSCOPY SCREENING] Future Scheduled 2022-03-04 HEPATITIS B VACCINES Met [facility] Test 14:03:57 (1 of 3 - Risk 3-dose series) [code = HEPATITIS B VACCINES (1 of 3 - Risk 3-dose series)] Future Scheduled 2022-03-04 COVID-19 VACCINE (3 - [facility] Test 14:03:57 Booster for Pfizer series) [code = COVID-19 VACCINE (3 - Booster for Pfizer series)] Future Scheduled 2022-03-04 65+ PNEUMOCOCCAL [facility] Test 14:03:57 VACCINE (4 - PPSV23 if available, else PCV20) [code = 65+ PNEUMOCOCCAL VACCINE (4 - PPSV23 if available, else PCV20)] Future Scheduled 2022-03-04 INFLUENZA VACCINE Method [facility] Test 14:03:57 [code = INFLUENZA VACCINE] Future Scheduled 2022-02-11 SHINGLES VACCINES (1 Met [facility] Test 13:39:12 of 2) [code = SHINGLES VACCINES (1 of 2)] Future Scheduled 2022-02-11 BREAST CANCER [facility] Test 13:39:12 SCREENING [code = BREAST CANCER SCREENING] Future Scheduled 2022-02-11 COLONOSCOPY SCREENING [facility] Test 13:39:12 [code = COLONOSCOPY SCREENING] Future Scheduled 2022-02-11 HEPATITIS B VACCINES Met [facility] Test 13:39:12 (1 of 3 - Risk 3-dose series) [code = HEPATITIS B VACCINES (1 of 3 - Risk 3-dose series)] Future Scheduled 2022-02-11 COVID-19 VACCINE (3 - [facility] Test 13:39:12 Booster for Pfizer series) [code = COVID-19 VACCINE (3 - Booster for Pfizer series)] Future Scheduled 2022-02-11 65+ [facility]AL [facility] 13:39:12 VACCINE (4 - PPSV23 or PCV20) [code = 65+ PNEUMOCOCCAL VACCINE (4 - PPSV23 or PCV20)] Future Scheduled 2022-02-11 INFLUENZA VACCINE Method [facility] Test 13:39:12 [code = INFLUENZA VACCINE] Future Scheduled 2022-01-29 SHINGLES VACCINES (1 Met [facility] Test 14:07:20 of 2) [code = SHINGLES VACCINES (1 of 2)] Future Scheduled 2022-01-29 BREAST CANCER [facility] Test 14:07:20 SCREENING [code = BREAST CANCER SCREENING] Future Scheduled 2022-01-29 COLONOSCOPY SCREENING [facility] Test 14:07:20 [code = COLONOSCOPY SCREENING] Future Scheduled 2022-01-29 HEPATITIS B VACCINES Met [facility] Test 14:07:20 (1 of 3 - Risk 3-dose series) [code = HEPATITIS B VACCINES (1 of 3 - Risk 3-dose series)] Future Scheduled 2022-01-29 COVID-19 VACCINE (3 - [facility] Test 14:07:20 Booster for Pfizer series) [code = COVID-19 VACCINE (3 - Booster for Pfizer series)] Future Scheduled 2022-01-29 65+ PNEUMOCOCCAL [facility] Test 14:07:20 VACCINE (4 - PPSV23 or PCV20) [code = 65+ PNEUMOCOCCAL VACCINE (4 - PPSV23 or PCV20)] Future Scheduled 2022-01-29 INFLUENZA VACCINE Method [facility] Test 14:07:20 [code = INFLUENZA VACCINE] Future Scheduled 2022-01-29 SHINGLES VACCINES (1 Met [facility] Test 14:07:20 of 2) [code = SHINGLES VACCINES (1 of 2)] Future Scheduled 2022-01-29 BREAST CANCER [facility] Test 14:07:20 SCREENING [code = BREAST CANCER SCREENING] Future Scheduled 2022-01-29 COLONOSCOPY SCREENING [facility] Test 14:07:20 [code = COLONOSCOPY SCREENING] Future Scheduled 2022-01-29 HEPATITIS B VACCINES Met [facility] Test 14:07:20 (1 of 3 - Risk 3-dose series) [code = HEPATITIS B VACCINES (1 of 3 - Risk 3-dose series)] Future Scheduled 2022-01-29 COVID-19 VACCINE (3 - [facility] Test 14:07:20 Booster for Pfizer series) [code = COVID-19 VACCINE (3 - Booster for Pfizer series)] Future Scheduled 2022-01-29 65+ PNEUMOCOCCAL [facility] Test 14:07:20 VACCINE (4 - PPSV23 or PCV20) [code = 65+ PNEUMOCOCCAL VACCINE (4 - PPSV23 or PCV20)] Future Scheduled 2022-01-29 INFLUENZA VACCINE Method [facility] Test 14:07:20 [code = INFLUENZA VACCINE] Future Scheduled 2022-01-29 SHINGLES VACCINES (1 Met [facility] Test 14:07:20 of 2) [code = SHINGLES VACCINES (1 of 2)] Future Scheduled 2022-01-29 BREAST CANCER [facility] Test 14:07:20 SCREENING [code = BREAST CANCER SCREENING] Future Scheduled 2022-01-29 COLONOSCOPY SCREENING [facility] Test 14:07:20 [code = COLONOSCOPY SCREENING] Future Scheduled 2022-01-29 HEPATITIS B VACCINES Met [facility] Test 14:07:20 (1 of 3 - Risk 3-dose series) [code = HEPATITIS B VACCINES (1 of 3 - Risk 3-dose series)] Future Scheduled 2022-01-29 COVID-19 VACCINE (3 - Me [facility] Test 14:07:20 Booster for Pfizer series) [code = COVID-19 VACCINE (3 - Booster for Pfizer series)] Future Scheduled 2022-01-29 65+ PNEUMOCOCCAL [facility] Test 14:07:20 VACCINE (4 - PPSV23 or PCV20) [code = 65+ PNEUMOCOCCAL VACCINE (4 - PPSV23 or PCV20)] Future Scheduled 2022-01-29 INFLUENZA VACCINE Method [facility] Test 14:07:20 [code = INFLUENZA VACCINE] Future Scheduled 2022-01-29 SHINGLES VACCINES (1 Met [facility] Test 14:07:20 of 2) [code = SHINGLES VACCINES (1 of 2)] Future Scheduled 2022-01-29 BREAST CANCER [facility] Test 14:07:20 SCREENING [code = BREAST CANCER SCREENING] Future Scheduled 2022-01-29 COLONOSCOPY SCREENING [facility] Test 14:07:20 [code = COLONOSCOPY SCREENING] Future Scheduled 2022-01-29 HEPATITIS B VACCINES Met [facility] Test 14:07:20 (1 of 3 - Risk 3-dose series) [code = HEPATITIS B VACCINES (1 of 3 - Risk 3-dose series)] Future Scheduled 2022-01-29 COVID-19 VACCINE (3 - Me [facility] Test 14:07:20 Booster for Pfizer series) [code = COVID-19 VACCINE (3 - Booster for Pfizer series)] Future Scheduled 2022-01-29 65+ PNEUMOCOCCAL [facility] Test 14:07:20 VACCINE (4 - PPSV23 or PCV20) [code = 65+ PNEUMOCOCCAL VACCINE (4 - PPSV23 or PCV20)] Future Scheduled 2022-01-29 INFLUENZA VACCINE Method [facility] Test 14:07:20 [code = INFLUENZA VACCINE] Future Scheduled 2022-01-20 SHINGLES VACCINES (1 Met [facility] Test 06:12:34 of 2) [code = SHINGLES VACCINES (1 of 2)] Future Scheduled 2022-01-20 Screening for [facility] Test 06:12:34 malignant neoplasm of cervix (procedure) [code = [id number]] Future Scheduled 2022-01-20 BREAST CANCER [facility] Test 06:12:34 SCREENING [code = BREAST CANCER SCREENING] Future Scheduled 2022-01-20 COLONOSCOPY SCREENING [facility] Test 06:12:34 [code = COLONOSCOPY SCREENING] Future Scheduled 2022-01-20 HEPATITIS B VACCINES Met [facility] Test 06:12:34 (1 of 3 - Risk 3-dose series) [code = HEPATITIS B VACCINES (1 of 3 - Risk 3-dose series)] Future Scheduled 2022-01-20 COVID-19 VACCINE (3 - [facility] Test 06:12:34 Booster for Pfizer series) [code = COVID-19 VACCINE (3 - Booster for Pfizer series)] Future Scheduled 2022-01-20 65+ PNEUMOCOCCAL [facility] Test 06:12:34 VACCINE (4 - PPSV23 or PCV20) [code = 65+ PNEUMOCOCCAL VACCINE (4 - PPSV23 or PCV20)] Future Scheduled 2022-01-20 INFLUENZA VACCINE Method [facility] Test 06:12:34 [code = INFLUENZA VACCINE] Future Scheduled 2022-01-16 SHINGLES VACCINES (1 Met [facility] Test 12:09:25 of 2) [code = SHINGLES VACCINES (1 of 2)] Future Scheduled 2022-01-16 Screening for [facility] Test 12:09:25 malignant neoplasm of cervix (procedure) [code = [id number]] Future Scheduled 2022-01-16 BREAST CANCER [facility] Test 12:09:25 SCREENING [code = BREAST CANCER SCREENING] Future Scheduled 2022-01-16 COLONOSCOPY SCREENING [facility] Test 12:09:25 [code = COLONOSCOPY SCREENING] Future Scheduled 2022-01-16 HEPATITIS B VACCINES Met [facility] Test 12:09:25 (1 of 3 - Risk 3-dose series) [code = HEPATITIS B VACCINES (1 of 3 - Risk 3-dose series)] Future Scheduled 2022-01-16 COVID-19 VACCINE (3 - [facility] Test 12:09:25 Booster for Pfizer series) [code = COVID-19 VACCINE (3 - Booster for Pfizer series)] Future Scheduled 2022-01-16 65+ PNEUMOCOCCAL [facility] Test 12:09:25 VACCINE (4 - PPSV23 or PCV20) [code = 65+ PNEUMOCOCCAL VACCINE (4 - PPSV23 or PCV20)] Future Scheduled 2022-01-16 INFLUENZA VACCINE Method [facility] Test 12:09:25 [code = INFLUENZA VACCINE] Future Scheduled 2022-01-14 SHINGLES VACCINES (1 Met [facility] Test 04:11:46 of 2) [code = SHINGLES VACCINES (1 of 2)] Future Scheduled 2022-01-14 Screening for [facility] Test 04:11:46 malignant neoplasm of cervix (procedure) [code = [id number]] Future Scheduled 2022-01-14 BREAST CANCER [facility] Test 04:11:46 SCREENING [code = BREAST CANCER SCREENING] Future Scheduled 2022-01-14 COLONOSCOPY SCREENING [facility] Test 04:11:46 [code = COLONOSCOPY SCREENING] Future Scheduled 2022-01-14 HEPATITIS B VACCINES Met [facility] Test 04:11:46 (1 of 3 - Risk 3-dose series) [code = HEPATITIS B VACCINES (1 of 3 - Risk 3-dose series)] Future Scheduled 2022-01-14 COVID-19 VACCINE (3 - [facility] Test 04:11:46 Booster for Pfizer series) [code = COVID-19 VACCINE (3 - Booster for Pfizer series)] Future Scheduled 2022-01-14 65+ PNEUMOCOCCAL [facility] Test 04:11:46 VACCINE (4 - PPSV23 or PCV20) [code = 65+ PNEUMOCOCCAL VACCINE (4 - PPSV23 or PCV20)] Future Scheduled 2022-01-14 INFLUENZA VACCINE Method [facility] Test 04:11:46 [code = INFLUENZA VACCINE] Future Scheduled 2021-08-26 Screening for [facility] Test 13:02:23 malignant neoplasm of cervix (procedure) [code = [id number]] Future Scheduled 2021-08-26 BREAST CANCER [facility] Test 13:02:23 SCREENING [code = BREAST CANCER SCREENING] Future Scheduled 2021-08-26 COLONOSCOPY SCREENING [facility] Test 13:02:23 [code = COLONOSCOPY SCREENING] Future Scheduled 2021-08-26 Screening for [facility] Test 13:02:23 malignant neoplasm of lung (procedure) [code = [id number]] Future Scheduled 2021-08-26 SHINGLES VACCINES (#1) [facility] Test 13:02:23 [code = SHINGLES VACCINES (#1)] Future Scheduled 2021-08-26 COVID-19 VACCINE (3 - [facility] Test 13:02:23 Pfizer risk 4-dose series) [code = COVID-19 VACCINE (3 - Pfizer risk 4-dose series)] Future Scheduled 2021-08-26 65+ [facility]CCAL [facility] 13:02:23 VACCINE (4 of 4 - PPSV23) [code = 65+ PNEUMOCOCCAL VACCINE (4 of 4 - PPSV23)] Future Scheduled 2021-08-26 INFLUENZA VACCINE Method [facility] Test 13:02:23 [code = INFLUENZA VACCINE] Encounters Start End Encounter Admission Attending Care Care Encounter Source Date/Time Date/Time Type Type Clinicians Facility Department ID 2022-02-18 Outpatient [place] [id number] [place] 14:30:[address] [place] [address] 2021-07-14 Outpatient SADIKOVIC, [facility] [id number] [place] 09:33:51 [facility] 2021-06-02 Outpatient HEMATPOUR, [facility] [id number] [place] 13:58:59 [facility] 2021-04-28 Outpatient HEMATPOUR, [facility] [id number] [place] 11:21:22 [facility] 2021-03-20 Emergency [facility] [id number] Univers 16:07:40 [facility] 2020-12-12 Outpatient HEMATPOUR, [facility] [id number] [place] 08:16:46 [facility] 2020-10-31 Outpatient HEMATPOUR, [facility] [id number] [place] 09:44:50 [facility] 2020-09-30 Outpatient HEMATPOUR, [facility] [id number] [place] 13:16:03 [facility] 2022-04-22 2022-04-22 Emergency X ISAAC [facility] ERT [id number] Univers 13:55:00 17:00:00 PAULETTE ity [facility] 2022-04-22 2022-04-22 Emergency [facility] [id number] Univers 13:55:00 17:00:00 Paulette S [place] 350.1.13.10 i ty of [place] 4.2.7.2.686 [facility] [id number] [facility] 084 [place] 2022-04-07 2022-04-07 Outpatient R ADRIAN, [facility] [id number] Univers 20:40:00 20:40:00 ATTENDING ity [facility] 2022-04-07 2022-04-07 Telephone Devin, 1.2.840.4 [id number] Univers 00:00:00 00:00:00 Robbi Hairston 19230.1.1 i ty of 3.104.2.7 [place] .3.398691 Medica l .8 [place] 2022-03-05 2022-03-05 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 Santiago Cardenas 1.2.840.1 [id number] Univers 13:45:00 14:00:00 Visit [facility] 95838.1.1 ity of 3.104.2.7 [place] .3.361066 Medica l .8 [place] 2022-03-05 2022-03-05 Outpatient R RONALD [facility] [id number] Univers 13:45:00 13:45:00 SANTIAGO ity [facility] 2022-03-05 2022-03-05 Office Qi Cardenas2.840.0 [id number] Univers 13:00:00 13:30:00 Visit Santiago 09596.1.1 ity of 3.104.2.7 [place] .3.754996 Medica l .8 [place] 2022-02-26 2022-02-26 Outpatient [facility] [id number] Univers 08:30:00 08:30:00 [facility] 2022-02-26 2022-02-26 Outpatient [facility] [id number] Univers 08:30:00 08:30:00 [facility] 2022-02-17 2022-02-17 Transition Stevo, 1.2.840.4 [id number] Univers 00:00:00 00:00:00 of Care Isaias Arredondo 66601.1.1 it y of 3.104.2.7 [place] .3.164841 Medica l .8 [place] 2022-02-10 2022-02-16 [facility] [id number] Univers 22:59:00 19:27:00 PETER ity of [facility] 2022-02-10 2022-02-16 Hospital Reilly Means 1.2.840.1 [id number] Univers 22:59:00 19:27:00 Encounter Ofe Shields 76956.1.1 ity of [place] 3[place].2.7 [place] .3.017981 Medica l .8 [place] 2022-02-11 2022-02-11 Telephone [facility], 1.2.840.8 [id number] Univers 00:00:00 00:00:00 Santiago 87109.1.1 ity of 3.104.2.7 [place] .3.028906 Medica l .8 [place] 2022-02-10 2022-02-10 Travel 1.2.840.1 1.2.748.161 [id number] Univers 00:00:00 00:00:00 04683.1.1 350.1.13.10 ity of 3.104.2.7 4[place]3.698 [place] .3.343349 084.8 Medica l .8 [place] 2022-01-30 2022-01-30 Telephone [place], 1.2.840.0 [id number] Univers 00:00:00 00:00:00 Santiago 62882.1.1 ity of 3.104.2.7 [place] .3.957389 Medica l .8 Branch 2022-01-06 2022-01-06 Orders Doctor FERMIN 1.2.840.114 [id number] Univers 00:00:00 00:00:00 Only Unassigned, JACKELINE 350.1.13.10 ity of [facility] 4.2.7.2.686 Yomi as [id number] [facility] 009 Branch 2021-12-25 2021-12-25 Orders Doctor FERMIN 1.2.840.114 [id number] Univers 00:00:00 00:00:00 Only Unassigned, JACKELINE 350.1.13.10 ity of [facility] 4.2.7.2.686 Yomi as [id number] [facility] 009 Branch 2021-12-12 2021-12-13 Emergency X Bill COLES [facility] ERT [id number] Univers 23:53:00 01:52:00 ity of [facility] 2021-12-12 2021-12-13 Emergency Bill Coles [facility] 1.2.840.114 [id number] Univers 23:53:00 01:52:00 Kiersten BULLOCK 350.1.13.10 [place] [facility] [id number] [facility] 084 Branch 2021-11-20 2021-11-20 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 [facility] 1.2.840.114 [id number] Univers 09:45:00 10:00:00 Visit [facility] 350.1.13.10 ity of [place] [id number] [facility] 316 Branch 2021-11-20 2021-11-20 Office [facility], UNIVERS 1.2.097.790 [id number] Univers 08:30:00 09:00:00 Visit [facility] 350.1.13.10 i ty of CLINICS 4.2.7.2.686 [facility] [id number] [place] [id number] Branch 2021-11-20 2021-11-20 Outpatient R RONALD, [facility] [id number] Univers 08:30:00 08:30:00 SANTIAGO charlie [facility] 2021-11-20 2021-11-20 Outpatient R RONALD [facility] [id number] Univers 08:30:00 08:30:00 [facility] 2021-11-20 2021-11-20 Outpatient R RONALD, [facility] [id number] Univers 08:30:00 08:30:00 [facility] 2021-11-20 2021-11-20 Outpatient R RONALD, [facility] [id number] Univers 08:30:00 08:30:00 [facility] 2021-10-24 2021-10-24 Emergency X [facility] ERT [id number] Univers 16:27:00 22:26:00 [facility] 2021-10-24 2021-10-24 Emergency [facility] [id number] Univers 16:27:00 [facility]:26:00 [facility] 2021-10-24 2021-10-24 Emergency Reilly Means [facility] 1.2.840. 114 [id number] Univers 16:27:00 22:26:00 ZainabKrishna parrajose Christian KOBE 350.1.13.10 ity [facility] 4.2.7.2.686 [facility] [id number] [address] 2021-10-23 2021-10-24 Emergency [facility] [id number] Univers 20:22:00 02:57:00 [facility] 2021-10-23 2021-10-24 [facility] [id number] [employer] 20:22:00 02:57:00 [facility] [id number] ity [facility] [id number] [facility] [id number] [address] 2021-09-07 2021-09-07 Outpatient R [facility] [id number] [employer] 08:00:00 08:00:00 GADIEL rodas [facility] 2021-09-07 2021-09-07 Outpatient R [facility] [id number] [employer] 08:00:00 08:00:00 GADIEL rodas [facility] 2021-08-21 2021-08-21 Outpatient R [facility] [id number] Univers 10:45:00 10:45:00 SANTIAGO barbosa [facility] 2021-08-21 2021-08-21 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 1.2.298.644 7872 8516 Univers 08:30:00 09:00:00 Visit Santiago [facility] 350.1.13.10 i ty of CL[place]ICS 4[place] 148.8877395 [facility] 089 [place] 2021-08-21 2021-08-21 Outpatient R [facility] [id number] Univers 08:30:00 08:30:00 SANTIAGO barbosa [facility] 2021-08-21 2021-08-21 Travel 1.2.840.1 1.2.467.015 3121 3865 Univers 00:00:00 00:00:00 59866.1.1 350.1.13.10 ity of 3.104.2.7 4.[place]7.3.698 [place] .3.459831 084.8 Medica l .8 Branch 2021-08-14 2021-08-14 Telephone East, 1.2.840.5 [id number] Univers 00:00:00 00:00:00 Santiago 23859.1.1 ity of 3.104.2.7 [place] .3.774266 Medica l .8 Branch 2021-08-13 2021-08-13 Telephone East, 1.2.840.0 [id number] 922 01230 Univers 00:00:00 00:00:00 Santiago 12585.1.1 ity of 3.104.2.7 [place] .3.707560 Medica l .8 [place] 2021-08-11 2021-08-11 Outpatient [facility] [id number] Univers 08:00:00 08:00:00 [facility] 2021-08-05 2021-08-05 Inpatient Ashely[facility] [id number] [facility] 05:24:00 05:24:00 Mike 31 [facility] 2021-07-20 2021-07-20 Outpatient [facility] [id number] Univers 10:00:00 10:00:00 [facility] 2021-07-14 2021-07-14 Office Pankaj, KIMBER[place] 6400 1.2.840.114 13 [id number] [place] 08:45:00 09:34:[address] 350.1.13.58 Health 9.2.7.2.686 [id number] 1 2021-07-09 2021-07-09 Telephone [place], UTP 6400 1.2.840.114 [id number] [place] 00:00:00 00:00:[address] 350.1.13.58 Health 9.2.7.2.686 [id number] 1 2021-07-09 2021-07-09 Telephone [place], UTP 6400 1.2.840.114 [id number] [place] 00:00:00 00:00:[address] 350.1.13.58 Health 9.2.7.2.686 [id number] 1 2021-07-03 2021-07-03 Outpatient R EAST, [facility] [id number] Univers 08:00:00 08:00:[address] [facility] 2021-06-17 2021-06-17 Inpatient WINTER Leal INTE.02 [id number] [facility] 10:56:00 14:36:00 Mike 47 [facility] 2021-06-15 2021-06-15 Outpatient R SELF, [facility] [id number] Univers 10:15:00 11:07:21 GADIEL vogel [facility] 2021-06-15 2021-06-15 Outpatient R SELF, [facility] [id number] Univers 10:15:00 10:15:00 GADIEL barbosa o [facility] 2021-06-15 2021-06-15 Outpatient R SELF, [facility] [id number] Univers 10:15:00 10:15:00 GADIEL familia vogel [facility] 2021-06-15 2021-06-15 Orders Doctor 1.2.840.3 [id number] Univers 00:00:00 00:00:00 Only Unassigned, 42106.1.1 ity of [place] 3.104.2.7 [place] .3.725507 Medica l .8 [place] 2021-06-15 2021-06-15 Travel 1.2.840.1 1.2.448.923 8540 7719 Univers 00:00:00 00:00:00 50272.1.1 350.1.13.10 ity of 3.104.2.7 4.[place].7.3.698 [place] .3.755597 084.8 Medica l .8 [place] 2021-06-11 2021-06-11 Refill East, [facility]ERS[facility] 1.2.534.881 9450 9185 Univers 00:00:00 00:00:00 [facility] 350.1.13.10 i ty of [place] 141.8494307 [facility] 089 [place] 2021-06-11 2021-06-11 Refill East, 1.2.840.9 [id number] 185 Univers 00:00:00 00:00:00 Santiago 58049.1.1 ity of 3.104.2.7 [place] .3.791678 Medica l .8 [place] 2021-06-05 2021-06-05 Outpatient R EAST, [facility] [id number] Univers 09:00:00 09:00:00 SANTIAGO maciely of [facility] 2021-06-02 2021-06-02 Telephone East, [facility]ERS[facility] 1.2.840.114 90 [id number] Univers 00:00:00 00:00:00 Santiago [facility] 350.1.13.10 i ty of [facility] 4.2.7.2.[place] 179.9042484 [facility] porfirio 089 [place] 2021-06-02 2021-06-02 Telephone East, 1.2.840.7 [id number] [id number] Univers 00:00:00 00:00:00 Santiago 88784.1.1 ity of 3.104.2.7 [place] .3.227637 Medica l .8 [place] 2021-05-29 2021-05-29 Telephone East, 1.2.840.0 [id number] 902 [id number] Univers 00:00:00 00:00:00 Santiago 56529.1.1 ity of 3.104.2.7 [place] .3.729409 Medica l .8 [place] 2021-05-29 2021-05-29 Telephone East, 1.2.840.5 [id number] 902 [id number] Univers 00:00:00 00:00:00 Santiago 49147.1.1 ity of 3.104.2.7 [place] .3.344022 Medica l .8 [place] 2021-05-25 2021-05-25 Outpatient R RODO, [facility] [id number] Univers 08:00:00 08:00:00 GADIEL rodas [facility] 2021-04-29 2021-04-29 Outpatient R LALA, [facility] [id number] Univers 08:00:00 08:00:00 NIKOLAI barbosa of [facility] 2021-04-28 2021-04-28 Telephone Ap, [facility] 6400 1.2.840.114 [id number] [place] 00:00:00 00:00:[address] 350.1.13.58 Health 9.2.7.2.686 [id number] 1 2021-04-28 2021-04-28 Telephone Jailyn, 1.2.840.6 [id number] 21 [id number] Methodi 00:00:00 00:00:[address] 3.430.2.7 Hospit a .3.972152 l .8 2021-04-28 2021-04-28 Telephone Jeredimasaleshia, 1.2.840.2 [id number] 21 [id number] Methodi 00:00:00 00:00:[address] 3.430.2.7 Hospit a .3.061175 l .8 2021-03-31 2021-03-31 Orders Carol Ann 1.2.840.1 [id number] 21 [id number] Methodi 00:00:00 00:00:00 Only Sarai Lieberman 75424.1.1 979 s t 3.430.2.7 Hospit a .3.913177 l .8 2021-03-30 2021-03-30 Outpatient R RODO [facility] [id number] Univers 08:45:00 08:45:00 GADIEL rodas [facility] 2021-03-24 2021-03-24 Telephone Jailyn 1.2.840.7 [id number] 21 [id number] Methodi 00:00:00 00:00:[address] 3.430.2.7 Hospit a .3.483452 l .8 2021-02-13 2021-02-13 Telephone Ronald 1.2.840.5 [id number] 876 17462 Univers 00:00:00 00:00:00 Santiago 50987.1.1 familia springer 3.104.2.7 [place] .3.825654 Medica l [address] 2021-01-28 2021-01-28 Laure REEVES, [facility] [id number] Univers 08:45:00 09:37:00 NIKOLAI ity of [facility] 2021-01-28 2021-01-28 Travel 1.2.840.1 1.2.715.479 7671 9777 Univers 00:00:00 00:00:00 12123.1.1 350.1.13.10 ity of 3.104.2.7 4.2.7.3.698 [place] .3.411005 084.8 Medica l .8 Branch 2021-01-19 2021-01-19 Telephone Pelletier, 1.2.840.1 [id number] 2100 [id number] Method 00:00:00 00:00:[address] 3.430.2.7 Hospit a .3.680279 l .8 2021-01-04 2021-01-04 Dmitry Bass, 1.2.840.7 [id number] 49546 696 Univers 00:00:00 00:00:00 (Out) Dagoberto H 91088.1.1 ity of 3.104.2.7 [place] .3.922382 Medica l .8 Branch 2021-01-04 2021-01-04 Dmitry Bass, 1.2.840.2 [id number] 46121 696 Univers 00:00:00 00:00:00 (Out) Dagoberto H 31102.1.1 ity of 3.104.2.7 [place] .3.344060 Medica l .8 Branch 2021-01-03 2021-01-03 Dmitry Bass, 1.2.840.9 [id number] 52258 790 Univers 00:00:00 00:00:00 (Out) Dagoberto H 89108.1.1 ity of 3.104.2.7 [place] .3.748287 Medica l .8 Branch 2021-01-03 2021-01-03 Dmitry Bass, 1.2.840.3 [id number] 54825 790 Univers 00:00:00 00:00:00 (Out) Dagoberto H 38493.1.1 ity of 3.104.2.7 [place] .3.118829 Medica l .8 Branch 2021-01-02 2021-01-02 Outpatient R [facility] [id number] Univers 13:40:00 13:40:00 ity of [facility] 2021-01-02 2021-01-02 Laboratory Cuba Franks 1.2.840.6 [id number] Univers 12:14:13 12:57:34 Only Lab, Ad[place] F[place]ob I 63977.1.1 ity of 3.104.2.7 [place] .3.146532 Medica l .8 Branch 2021-01-02 2021-01-02 Laboratory [place] Franks 1.2.840.4 [id number] [id number] Univers 12:14:13 12:57:34 Only Lab, Adc Fam Pob I 48481.1.1 ity of 3.104.2.7 [place] .3.453579 Medica l .8 Branch 2021-01-02 2021-01-02 Travel 1.2.840.1 1.2.387.492 8183 2306 Univers 00:00:00 00:00:00 83460.1.1 350.1.13.10 ity of 3.104.2.7 4.2.7.3.698 [place] .3.254819 084.8 Medica l .8 Branch 2021-01-02 2021-01-02 Letter Doctor 1.2.840.4 [id number] 97710 948 Univers 00:00:00 00:00:00 (Out) Unassigned, 66221.1.1 ity of [place] 3.104.2.7 [place] .3.026859 Medica l .8 Branch 2021-01-02 2021-01-02 Letter Doctor 1.2.840.8 [id number] 58380 946 Univers 00:00:00 00:00:00 (Out) Unassigned, 42257.1.1 ity of [place] 3.104.2.7 [place] .3.126678 Medica l .8 Branch 2021-01-02 2021-01-02 Travel 1.2.840.1 1.2.505.517 5020 2306 Univers 00:00:00 00:00:00 52163.1.1 350.1.13.10 ity of 3.104.2.7 4.2.7.3.698 [place] .3.201547 084.8 Medica l .8 [place] 2021-01-02 2021-01-02 Letter Doctor 1.2.840.2 [id number] 52698 948 Univers 00:00:00 00:00:00 (Out) Unassigned, 93832.1.1 ity of [place] 3.104.2.7 [place] .3.333943 Medica l .8 [place] 2021-01-02 2021-01-02 Letter Doctor 1.2.840.6 [id number] 14971 946 Univers 00:00:00 00:00:00 (Out) Unassigned, 44698.1.1 ity of [place] 3.104.2.7 [place] .3.804878 Medica l .8 [place] 2020-12-22 2020-12-22 Telephone Beltran, 1.2.840.2 [id number] 862 13762 Univers 00:00:00 00:00:00 Eligionda R 82861.1.1 i ty of 3.104.2.7 [place] .3.080613 Medica l .8 [place] 2020-12-22 2020-12-22 Telephone Beltran, 1.2.840.9 [id number] 862 54704 Univers 00:00:00 00:00:00 Roshunda R 71898.1.1 i ty of 3.104.2.7 [place] .3.852756 Medica l .8 [place] 2020-12-12 2020-12-12 Office [place], UTP 6400 1.2.840.114 12 [id number] [place] 07:42:02 08:18:50 Visit Maríabrigidayajaira PAKN 350.1.13.58 Health 9.2.7.2.686 [id number] 1 2020-12-12 2020-12-12 Office [place], UTP 6400 1.2.840.114 12 [id number] 07:42:02 08:18:[address] 350.1.13.58 9.2.7.2.686 [id number] 1 2020-12-09 2020-12-09 Telephone Carol Ann, 1.2.840.1 [id number] Methodi 00:00:00 00:00:00 Sarai Lieberman 88645.1.1 316 s t 3.430.2.7 Hospit a .3.208471 l .8 2020-12-08 2020-12-08 [facility], 1.2.840.1 [id number] 2100 172931 Methodi 12:35:54 23:59:00 Encounter Ray 34457.1.[address] 3.430.2.7 Hospit a .3.804669 l .8 2020-12-08 2020-12-08 Lab [facility], 1.2.840.1 [id number] 16470 83323 Methodi 17:25:00 17:30:[address] 3.430.2.7 Hospit a .3.228192 l .8 2020-12-08 2020-12-08 [facility], 1.2.840.1 [id number] 27694 62131 Methodi 10:30:00 11:39:56 Visit Ray 38333.1.[address] 3.430.2.7 Hospit a .3.762932 l .8 2020-12-08 2020-12-08 Travel 1.2.840.1 1.2.051.211 1448 971651 Methodi 00:00:00 00:00:[address] 3.430.2.7 0.2.7.3.698 Ho spita .3.700738 084.8 l .8 2020-12-02 2020-12-02 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 Santiago Cardenas 1.2.840.1 [id number] [facility] 10:20:06 10:36:19 Visit [facility] 94844.1.1 ity of 3.104.2.7 [place] .3.146686 Medica l .8 [place] 2020-12-02 2020-12-02 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 Santiago Cardenas 1.2.840.1 [id number] 316 [id number] [facility] 10:20:06 10:36:19 Visit [facility] 31889.1.1 ity of 3.104.2.7 [place] .3.976266 Medica l .8 [place] 2020-12-02 2020-12-02 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 [facility] UNIVERSIT 1.2.840.114 8 [id number] 10:20:06 10:36:19 Visit HEALTH 350.1.13.10 CLINICS 4.2.7.2.686 133.1909036 [facility] 2020-12-02 2020-12-02 Office Shelby Cardenas.2.840.1 [id number] 528 [facility] 08:31:37 09:01:37 Visit Santiago 25460.1.1 ity of 3.104.2.7 [place] .3.742632 Medica l .8 [place] 2020-12-02 2020-12-02 Outpatient R [facility] [id number] Univers 09:00:00 09:00:00 SANTIAGO ity of [facility] 2020-11-25 2020-11-25 Office Beltran, 1.2.840.5 [id number] 67039 865 [facility] 11:06:30 11:58:14 Visit Robbi Hairston 04138.1.1 i ty of 3.104.2.7 [place] .3.749633 Medica l .8 [place] 2020-11-25 2020-11-25 Office Beltran, 1.2.840.0 [id number] 03753 865 Univers 11:06:30 11:58:14 Visit Robbi Hairston 10350.1.1 i ty of 3.104.2.7 [place] .3.718841 Medica l .8 [place] 2020-11-25 2020-11-25 Office [facility] 1.2.840.114 [id number] 11:06:30 11:58:14 Visit Robbi Hairston DOPSTER 350.1.13.10 REGIONAL 4.2.7.2.686 MATERNAL 587.0764431 & CHILD [address] [place] [address] 2020-11-25 2020-11-25 Outpatient R [facility] [id number] Univers 11:00:00 11:00:00 ity of [facility] 2020-11-25 2020-11-25 Telephone Devin, 1.2.840.2 [id number] 855 43609 Univers 00:00:00 00:00:00 Robbi Hairston 77895.1.1 i ty of 3.104.2.7 [place] .3.635921 Medica l .8 [place] 2020-11-25 2020-11-25 Refill East, 1.2.840.2 [id number] 99265 592 Univers 00:00:00 00:00:00 Santiago 13799.1.1 ity of 3.104.2.7 [place] .3.791868 Medica l .8 [place] 2020-11-25 2020-11-25 Travel 1.2.840.1 1.2.794.677 7432 0247 Univers 00:00:00 00:00:00 57075.1.1 350.1.13.10 ity of 3.104.2.7 4.2.7.3.698 [place] .3.233124 084.8 Medica l .8 [place] 2020-11-25 2020-11-25 Orders Doctor 1.2.840.0 [id number] 69181 064 Univers 00:00:00 00:00:00 Only Unassigned, 64222.1.1 ity of [place] 3.104.2.7 [place] .3.767951 Medica l .8 [place] 2020-11-25 2020-11-25 Telephone Devni, 1.2.840.9 [id number] 855 17450 Univers 00:00:00 00:00:00 Robbi Hairston 49155.1.1 i ty of 3.104.2.7 [place] .3.151551 Medica l .8 [place] 2020-11-25 2020-11-25 Refill East, 1.2.840.1 [id number] 31196 592 Univers 00:00:00 00:00:00 Santiago 49315.1.1 ity of 3.104.2.7 [place] .3.607529 Medica l .8 Branch 2020-11-25 2020-11-25 Travel 1.2.840.1 1.2.203.151 4212 0247 Univers 00:00:00 00:00:00 80934.1.1 350.1.13.10 ity of 3.104.2.7 4.2.7.3.698 [place] .3.550074 084.8 Medica l .8 Branch 2020-11-25 2020-11-25 Orders Doctor 1.2.840.7 [id number] 37196 064 Univers 00:00:00 00:00:00 Only Unassigned, 01912.1.1 ity of [place] 3.104.2.7 [place] .3.141065 Medica l .8 Branch 2020-11-25 2020-11-25 [facility] 1.2.024.779 7019 4592 00:00:00 00:00:00 [facility] 350.1.13.10 [facility] 4.2.7.2.686 561.0024162 089 2020-11-25 2020-11-25 [facility] 1.2.282.426 0797 0821 00:00:00 00:00:00 Robbi Hairston DOP[facility] 350.1.13.10 [facility] 4.2.7.2.686 MATERNAL [id number] & CHILD [address] [place] [address] 2020-11-14 2020-11-14 Abstract Clark 1.2.840.1 [id number] 19528 73080 Methodi 00:00:00 00:00:[address] 3.430.2.7 Hospit a .3.933433 l .8 2020-11-14 2020-11-14 Telephone Clark 1.2.840.1 [id number] 2100 868443 Methodi 00:00:00 00:00:[address] 3.430.2.7 Hospit a .3.004285 l .8 2020-11-12 2020-11-12 Outpatient R RONALD, [facility] [id number] 323 Univers 08:30:00 08:30:00 SANTIAGO ity of [facility] 2020-11-07 2020-11-07 Telephone Agustina Ortiz UTP 6400 1.2.840.11 4 [id number] [place] 00:00:00 00:00:[address] 350.1.13.58 Health 9.2.7.2.686 [id number] 1 2020-11-07 2020-11-07 Telephone KIMBERLEY Ortiz 6400 1.2.840.114 124 [id number] 00:00:00 00:00:[address] 350.1.13.58 9.2.7.2.686 [id number] 1 2020-10-31 2020-10-31 Office Hematpour, KIMBERLEY 6400 1.2.840.114 12 [id number] [place] 07:54:00 09:45:[address] 350.1.13.58 Health 9.2.7.2.686 [id number] 1 2020-10-30 2020-10-30 Abstract Rody Maguire UTP 6400 1.2.840.1 14 [id number] [place] 00:00:00 00:00:[address] 350.1.13.58 Health 9.2.7.2.686 [id number] 1 2020-10-29 2020-10-29 Refill East, 1.2.840.5 [id number] 51751 400 Univers 00:00:00 00:00:00 Santiago 27118.1.1 ity of 3.104.2.7 [place] .3.154394 Medica l .8 Branch 2020-10-29 2020-10-29 Refill East, 1.2.840.9 [id number] 24680 400 Univers 00:00:00 00:00:00 Santiago 07801.1.1 ity of 3.104.2.7 [place] .3.254678 Medica l .8 Branch 2020-10-27 2020-10-27 Telephone Jailyn, 1.2.840.9 [id number] 21 [id number] Methodi 00:00:00 00:00:[address] 3.430.2.7 Hospit a .3.298899 l .8 2020-10-24 2020-10-24 Telephone Clark, 1.2.840.1 [id number] 2100 229772 Methodi 00:00:00 00:00:[address] 3.430.2.7 Hospit a .3.775737 l .8 2020-10-22 2020-10-22 Outpatient R SELF, [facility] [id number] 868 Univers 13:00:00 13:00:00 GADIEL barbosa [facility] 2020-10-22 2020-10-22 Travel 1.2.840.1 1.2.204.592 8406 3839 Univers 00:00:00 00:00:00 55440.1.1 350.1.13.10 ity of 3.104.2.7 4.2.7.3.698 [place] .3.679859 084.8 Medica l .8 [place] 2020-10-22 2020-10-22 Travel 1.2.840.1 1.2.092.882 5044 3839 Univers 00:00:00 00:00:00 83566.1.1 350.1.13.10 ity of 3.104.2.7 4.2.7.3.698 [place] .3.645821 084.8 Medica l .8 [place] 2020-10-13 2020-10-13 Outpatient R SELF, [facility] [id number] Univers 08:45:00 08:45:00 GADIEL barbosa [facility] 2020-10-06 2020-10-12 Telemedici Jailyn, 1.2.840.1 [id number] 21 [id number] Methodi 15:30:00 00:08:46 ne Ray 05446.1.[address] 3.430.2.7 Hospit a .3.739531 l .8 2020-09-30 2020-09-30 [facility], 1.2.840.1 [id number] 21 [id number] Methodi 00:00:00 00:00:[address] 3.430.2.7 Hospit a .3.678680 l .8 2020-09-21 2020-09-21 [facility] 1.2.840.1 1.2.557.638 9887 328334 Methodi 00:00:00 00:00:[address] 3.430.2.7 0.2.7.3.698 Ho spita .3.174169 084.8 l .8 2020-09-06 2020-09-06 [facility] 1.2.840.1 [id number] 99341 40563 Methodi 17:42:30 23:59:[address] 3.430.2.7 Hospit a .3.217038 l .8 2020-09-06 2020-09-06 [facility], 1.2.840.1 [id number] 2099 317267 Methodi 16:50:00 17:41:00 Encounter Ray [address]201.1.[address] 3.430.2.7 Hospit a .3.257803 l .8 2020-09-05 2020-09-05 [facility], 1.2.840.1 [id number] 2099 870009 Methodi 09:17:00 19:45:00 Encounter Ray [address]95.1.[address] 3.430.2.7 Hospit a .3.657608 l .8 2020-09-05 2020-09-05 Surgery [facility], 1.2.840.1 [id number] 73466 05775 Methodi 11:30:00 13:15:[address] 3.430.2.7 Hospit a .3.294764 l .8 2020-09-05 2020-09-05 Anesthesia [facility], 1.2.840.1 [id number] 562 [id number] Methodi 11:27:00 12:20:00 Event Kirit 05136.1.1 243 s t V. 3.430.2.7 Hospit a .3.751985 l .8 2020-09-05 2020-09-05 Travel 1.2.840.1 1.2.187.436 4463 486531 Methodi 00:00:00 00:00:[address] 3.430.2.7 0.2.7.3.698 Ho spita .3.923223 084.8 l .8 2020-09-04 2020-09-04 Telephone Meisenbach, 1.2.840.1 [id number] Methodi 00:00:00 00:00:00 Sarai Lieberman 01868.1.1 762 s t 3.430.2.7 Hospit a .3.070165 l .8 2020-09-02 2020-09-02 Telephone Me[place]bach, 1.2.840.1 [id number] Methodi 00:00:00 00:00:00 Sarai Lieberman 69590.1.1 344 s t 3.430.2.7 Hospit a .3.695259 l .8 2020-08-29 2020-08-30 [facility] [id number] [facility] 10:20:00 14:10:00 Outpatient r Sloan [address] [facility] 2020-08-29 2020-08-30 Outpatient HEMATPOUR, [facility] CAR 7500 [facility] 05:20:00 09:10:00 BEVERLY 2020-08-06 2020-08-06 Office [place], 1.2.840.8 [id number] 416 [facility] 08:03:23 09:17:49 Visit Santiago 92720.1.1 familia 3.104.2.7 [place] .3.185285 Medica l .8 [place] 2020-08-06 2020-08-06 Outpatient R RONALD [facility] [id number] Univers 08:30:00 08:30:00 SANTIAGO barbosa of [facility] 2020-07-14 2020-07-14 Outpatient R SELF, [facility] [id number] Univers 09:30:00 09:30:00 GADIEL rodas [facility] 2020-07-14 2020-07-14 Travel 1.2.840.1 1.2.728.098 [id number] Univers 00:00:00 00:00:00 16854.1.1 350.1.13.10 ity of 3[place]104.2.[place].698 [place] .3.526138 084.8 Medica l .8 [place] 2020-07-14 2020-07-14 Orders Doctor 1.2.840.2 [id number] Univers 00:00:00 00:00:00 Only Unassigned, 12971.1.1 ity of [place] 3.104.2.7 [place] .3.122334 Medica l .8 [place] 2020-06-16 2020-06-16 [id number] Univers 08:00:00 08:00:00 GADIEL rodas [facility] 2020-06-06 2020-06-06 Telephone [place], 1.2.840.3 [id number] Univers 00:00:00 00:00:00 [place] 44570.1.1 ity of 3.104.2.7 [place] .3.072318 Medica l .8 [place] 2020-06-04 2020-06-04 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 [place] Cardenas 1.2.840.1 [id number] Univers 09:31:58 09:40:12 Visit [facility] 03140.1.1 ity of 3.104.2.7 [place] .3.647225 Medica l .8 [place] 2020-06-04 2020-06-04 Office JOSÉ ANTONIO Cardenas 1.2.493.466 [id number] Univers 08:13:41 09:28:25 Visit [place] [facility] 350.1.13.10 i ty of [place] 100.2957693 [facility] porfirio 089 [place] 2020-06-04 2020-06-04 Outpatient R [facility] [id number] Univers 08:30:00 08:30:00 SANTIAGO ity [facility] 2020-06-04 2020-06-04 Orders Doctor 1.2.840.0 [id number] Univers 00:00:00 00:00:00 Only Unassigned, 24806.1.1 ity of [place] 3.104.2.7 [place] .3.143825 Medica l .8 [place] 2020-05-19 2020-05-19 Telephone [place], 1.2.840.8 [id number] Univers 00:00:00 00:00:00 [place] 27041.1.1 ity of 3.104.2.7 [place] .3.880352 Medica l .8 [place] 2020-04-24 2020-04-24 Telephone [place], 1.2.840.1 [id number] Univers 00:00:00 00:00:00 [place] 01371.1.1 ity of 3.104.2.7 [place] .3.080285 Medica l .8 [place] 2020-04-14 2020-04-14 Outpatient R [facility] [id number] Univers 09:00:00 09:00:00 SANTIAGO maciely [facility] 2020-04-14 2020-04-14 Telephone [place], 1.2.840.9 [id number] Univers 00:00:00 00:00:00 [place] 95272.1.1 ity of 3.104.2.7 [place] .3.924051 Medica l .8 [place] 2020-03-31 2020-03-31 Outpatient R [facility], [facility] [id number] Univers 08:30:00 08:30:00 SANTIAGO ity [facility] 2020-03-03 2020-03-03 Outpatient R [facility], [facility] [id number] Univers 08:00:00 08:00:00 GADIEL rodas [facility] 2020-03-03 2020-03-03 Outpatient R SELF, [facility] [id number] Univers 08:00:00 08:00:00 GADIEL rodas [facility] 2020-03-03 2020-03-03 Travel 1.2.840.1 1.2.368.989 [id number] Univers 00:00:00 00:00:00 49768.1.1 350.1.13.10 ity of 3.104.2.[place]3.698 [place] .3.75[place] 084.8 Medica l .8 [place] 2020-02-06 2020-02-06 Telephone [place], 1.2.840.6 [id number] Univers 00:00:00 00:00:00 [place] 22877.1.1 ity of 3.104.2.7 [place] .3.562934 Medica l .8 [place] 2020-01-26 2020-01-26 Emergency Car[place], 1.2.840.5 [id number] Univers 10:03:00 13:05:00 Cynise 85273.1.1 ity of 3.104.2.7 [place] .3.197518 Medica l .8 [place] 2020-01-26 2020-01-26 Travel 1.2.840.1 1.2.176.754 [id number] Univers 00:00:00 00:00:00 22215.1.1 350.1.13.10 ity of 3.104.2.[place] 4[place]3.698 [place] .3.610446 084.8 Medica l .8 [place] 2020-01-25 2020-01-25 Outpatient R [facility] [id number] Univers 08:30:00 08:30:00 SANTIAGO ity of [facility] 2020-01-25 2020-01-25 Telemedici [place], 1.2.840.0 [id number] Univers 07:36:49 08:06:49 ne Visit [place] 88608.1.1 ity of 3.104.2.7 [place] .3.868855 Medica l .8 [place] 2020-01-16 2020-01-16 Outpatient R [facility] [id number] Univers 08:00:00 08:00:00 SANTIAGO ity of [facility] 2020-01-16 2020-01-16 Telephone [place], 1.2.840.9 [id number] Univers 00:00:00 00:00:00 [place] 08683.1.1 ity of 3.104.2.7 [place] .3.463890 Medica l .8 [place] 2020-01-14 2020-01-14 Outpatient R SELF, [facility] [id number] Univers 08:00:00 08:00:00 GADIEL rodas [facility] 2019-12-31 2019-12-31 Outpatient R SELF, [facility] [id number] Univers 08:45:00 08:45:00 GADIEL barbosa o clark [facility] 2019-10-17 2019-10-17 Outpatient R [facility], [facility] [id number] Univers 08:30:00 08:30:00 SANTIAGO ity [facility] 2019-10-12 2019-10-12 Outpatient R [facility], [facility] [id number] Univers 13:00:00 13:00:00 [facility] 2019-10-12 2019-10-12 Telemedici [place], 1.2.840.3 [id number] Univers 07:38:30 08:08:30 ne Visit [place] 73774.1.1 ity of 3.104.2.7 [place] .3.959531 Medica l .8 [place] 2019-10-08 2019-10-08 Outpatient R SELF, [facility] [id number] Univers 10:15:00 10:15:00 GADIEL rodas [facility] 2019-10-03 2019-10-03 Case [place], 1.2.840.8 [id number] Univers 00:00:00 00:00:00 Management Michael Corbin 11415.1.1 i ty of 3.104.2.7 [place] .3.415176 [facility]ica [facility] .[facility] [place] 2019-09-27 2019-09-27 Telephone East, 1.2.840.7 [id number] Univers 00:00:00 00:00:00 Santiago 19101.1.1 ity of 3.104.2.7 [place] .3.243689 Medica l .8 [place] 2019-09-04 2019-09-04 Refill East, 1.2.840.1 [id number] Univers 00:00:00 00:00:00 Santiago 01435.1.1 ity of 3.104.2.7 [place] .3.475895 Medica l .8 [place] 2019-07-24 2019-07-24 Outpatient R EAST, [facility] [id number] Univers 08:30:00 08:30:00 [place] ity [facility] 2019-07-17 2019-07-17 Outpatient R [facility] [id number] Univers 10:00:00 10:00:00 [place] ity [facility] 2019-06-15 2019-06-15 Telephone East, 1.2.840.9 [id number] Univers 00:00:00 00:00:00 [place] 60884.1.1 ity of 3.104.2.7 [place] .3.936320 Medica l .8 [place] 2019-06-13 2019-06-13 Telephone Team, [facility] 1.2.840.4 [id number] Univers 00:00:00 00:00:00 Health 68766.1.1 [place] .3.6420[place] Medica [place] .8 [place] 2019-05-10 2019-05-10 Refill Ronald, 1.2.840.0 [id number] Univers 00:00:00 00:00:00 [place] 81354.1.1 ity of 3.104.2.7 [place] .3.768432 Medica l .8 [place] 2019-05-09 2019-05-09 Refill Ronald, 1.2.840.1 [id number] Univers 00:00:00 00:00:00 [place] 02783.1.1 ity of 3.104.2.7 [place] .3.957957 Medica l .8 [place] 2019-04-30 2019-04-30 Outpatient R SELF, [facility] [id number] Univers 10:15:00 10:33:05 GADIEL barbosa o f [facility] 2019-04-18 2019-04-18 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 RonaldSantiago 1.2.840.1 [id number] Univers 10:00:39 10:44:31 Visit [facility] 17317.1.1 ity of 3.104.2.7 [place] .3.854403 Medica l .8 [place] 2019-04-18 2019-04-18 Outpatient R RONALD, [facility] [id number] Univers 10:00:00 10:44:31 [place]O ity of [facility] 2019-04-18 2019-04-18 Office East, 1.2.840.3 [id number] Univers 08:27:44 09:53:27 Visit Santiago 54754.1.1 ity of 3.104.2.7 [place] .3.472371 Medica l .8 [place] 2019-04-18 2019-04-18 Orders Doctor 1.2.840.7 [id number] Univers 00:00:00 00:00:00 Only Unassigned, 69185.1.1 ity of [place] 3.104.2.7 [place] .3.664850 Medica l .8 [place] 2019-04-11 2019-04-[address] [facility], 1.2.840.2 [id number] Univers 00:00:00 00:00:00 [place] 43855.1.1 ity of 3.104.2.7 [place] .3.412108 Medica l .8 [place] 2019-04-09 2019-04-[address] [facility], 1.2.840.6 [id number] Univers 00:00:00 00:00:00 [place] 56861.1.1 ity of 3.104.2.7 [place] .3.093809 Medica l .8 [place] 2019-04-03 2019-04-03 Telephone Team, [facility] 1.2.840.3 [id number] Univers 00:00:00 00:00:00 Health 60695.1.1 [place] .3.850434 [facility] l .8 [place] 2019-03-27 2019-03-27 Telephone Self, 1.2.840.9 [id number] Univers 00:00:00 00:00:00 Gadiel 17829.1.1 ity of 3.104.2.7 [place] .3.811638 Medica l .8 [facility] 2019-01-17 2019-01-17 Office Ronald, 1.2.840.0 [id number] Univers 07:37:21 10:32:51 Visit Santiago 51215.1.1 ity of 3.104.2.7 [place] .3.296113 Medica l .8 [facility] 2019-01-04 2019-01-12 Office Eveline Hansen 1.2.840.7 [id number] Univers 11:19:32 11:08:05 Visit Mariela 11075.1.1 ity of 3.104.2.7 [place] .3.636535 Medica l .8 [facility] 2019-01-10 2019-01-10 Telephone Ephraimcharlie, 1.2.840.2 [id number] Univers 00:00:00 00:00:00 Eladio Inman 92817.1.1 ity of 3.104.2.7 [place] .3.043980 Medica l .8 [place] 2018-12-18 2018-12-18 Office Alexisryan, 1.2.840.6 [id number] Univers 08:48:45 09:13:43 Visit Leyda 78632.1.1 it y of 3.104.2.7 [place] .3.015248 Medica l .8 [place] 2018-10-30 2018-10-30 Telephone Ronald, 1.2.840.3 [id number] Univers 00:00:00 00:00:00 [place] 59070.1.1 ity of 3.104.2.7 [place] .3.413900 Medica l .8 [facility] 2018-10-23 2018-10-23 Orders Doctor 1.2.840.2 [id number] Univers 00:00:00 00:00:00 Only Unassigned, 00074.1.1 ity of [place] 3.104.2.7 [place] .3.391107 Medica l .8 [facility] 2018-10-23 2018-10-23 Nurse Selvin, 1.2.840.5 [id number] Univers 00:00:00 00:00:00 Triage Stefanie 25840.1.1 ity of 3.104.2.7 [place] .3.644687 Medica l .8 [place] 2018-10-23 2018-10-23 Telephone Self, 1.2.840.4 [id number] Univers 00:00:00 00:00:00 Gadiel 16303.1.1 ity of 3.104.2.7 [place] .3.347773 Medica l .8 [place] 2018-10-20 2018-10-20 Telephone Self, 1.2.840.5 [id number] Univers 00:00:00 00:00:00 Gadiel 97262.1.1 ity of 3.104.2.7 [place] .3.874615 Medica l .8 [place] Results Test Description Test Time Test Comments Results Result Comments Source BASIC METABOLIC PANEL (NA, K, CL, CO2, GLUCOSE, BUN, 2022-04 21:43:42 CREATININE, CA) Test Item Value Reference Range Interpretation Comme nts NA (test code = 0467037849) 142 mmol/L 135-145 K (test code = 5363096463) 3.5 mmol/L 3.5-5.0 CL (test code = 4217452873) 106 mmol/L 98-108 CO2 TOTAL (test code = 8430409194) 26 mmol/L 23-31 AGAP (test code = 5929265455) 2-16 BUN (test code = 2231767655) 29 mg/dL 7-23 H GLUCOSE (test code = 2797570087) 84 mg/dL 70-110 CREATININE (test code = 1.16 mg/dL 0.50-1.04 H 4871528341) CALCIUM (test code = 8684247287) 8.2 mg/dL 8.6-10.6 L eGFR (test code = 8334283888) mL/min/1.73m2 KYLE (test code = KYLE) Association [...] tests). Lab Interpretation (test code = Abnormal 49131-5) [facility] WITH [id number] 21:33:01 Test Item Value Reference Range Interpretation Comments WBC (test code = See_Comment [Automated 8990-2) message] The sy stem which generated this result transmitted reference range : 4.30 - 11.10 10*3/?L. The reference range was not used to interpret this result as normal/abnormal . RBC (test code = See_Comment L [Automated 719-8) message] The sy stem which generated this [...] (test code = 50.7 fL 39.0-49.9 H 68071-5) RDW-CV (test code = 14.6 % 12.0-15.5 788-0) PLT (test code = See_Comment L [Automated 777-3) message] The sy stem which generated this result transmitted reference range : 166 - 358 10*3/ ?L. The reference r abbey was not used to interpret this result as normal/abnormal . MPV (test code = 8.8 fL 9.5-12.9 L 09805-8) NRBC/100 WBC (test See_Comment [Automat ed code = 9728925734) message] The system which generated this result transmitted reference range : 0.0 - 10.0 /100 WBCs. The refer ence range was not u sed to interpret th is result as normal/abnormal . NRBC x10^3 (test code See_Comment [Auto mated = 7270744981) message] The s ystem which generated this result transmitted reference range : 10*3/?L. The reference range was not used to interpret this result as normal/abnormal . GRAN MAT (NEUT) % 70.9 % (test code = 770-8) IMM GRAN % (test code 0.50 % = 1484783983) LYMPH % (test code = 17.4 % 736-9) MONO % (test code = 9.0 % 5905-5) EOS % (test code = 1.7 % 713-8) BASO % (test code = 0.5 % 706-2) GRAN MAT x10^3(ANC) 4.60 10*3/uL 1.88-7.09 (test code = 6827477324) IMM GRAN x10^3 (test 0.03 10*3/uL 0.00-0.06 code = 0956257180) LYMPH x10^3 (test code 1.13 10*3/uL 1.32-3.29 L = 731-0) MONO x10^3 (test code 0.58 10*3/uL 0.33-0.92 = 742-7) EOS x10^3 (test code = 0.11 10*3/uL 0.03-0.39 711-2) BASO x10^3 (test code 0.03 10*3/uL 0.01-0.07 = 704-7) Lab Interpretation Abnormal (test code = 19082-5) [facility] CULTURE [id number] 06:01:07 Test Item Value Reference Range Interpretation Comments Blood Culture-Aerobic No organisms No growth Previo us (test code = 96866-9) isolated prelim inary verified result was Culture [...] Culture-Anaerobic isolated preliminar y (test code = 49126-9) verifi ed result was Culture In Progress [...] CDT Lab Interpretation Normal (test code = 96920-2) [facility] CULTURE [id number] 06:01:07 Test Item Value Reference Range Interpretation Comments Blood Culture-Aerobic No organisms No growth Previo us (test code = 53994-2) isolated prelim inary verified result was Culture [...] Culture-Anaerobic isolated preliminar y (test code = 18597-2) verifi ed result was Culture In Progress [...] CDT Lab Interpretation Normal (test code = 50060-2) [facility] [id number] 06:01:07 Test Item Value Reference Range Interpretation Comments Blood Culture-Aerobic No organisms No growth Previo us (test code = 20887-9) isolated prelim inary verified result was Culture [...] Culture-Anaerobic isolated preliminar y (test code = 62336-2) verifi ed result was Culture In Progress [...] CDT Lab Interpretation Normal (test code = 68756-1) [facility] [id number] 10:49:10 Test Item Value Reference Range Interpretation Comments NT-proBNP (test code 2660 pg/mL See_Comment H [Autom ated = 8856236416) message] The system which generated this result transmitted reference range : <=125. The reference range was not used to interpret this result as normal/abnormal . KYLE (test code = KYLE) Biotin has been reported to cause a negative bias, interpret results relative to patient's use of biotin. Lab Interpretation Abnormal (test code = 07812-6) [facility] [id number] 10:49:10 Test Item Value Reference Range Interpretation Comments NT-proBNP (test code 2660 pg/mL See_Comment H [Autom ated = 5383377123) message] The system which generated this result transmitted reference range : <=125. The reference range was not used to interpret this result as normal/abnormal . KYLE (test code = KYLE) Biotin has been reported to cause a negative bias, interpret results relative to patient's use of biotin. Lab Interpretation Abnormal (test code = 82167-5) [facility] METABOLIC PANEL (NA, K, CL, CO2, GLUCOSE, BUN, CREATININE, CA)2022-02-15 10:44:07 Test Item Value Reference Range Interpretation Comments NA (test code = 134 mmol/L 135-145 L 8758310543) K (test code = 3.2 mmol/L 3.5-5 L 6197199077) CL (test code = 98 mmol/L 98-108 5461706180) CO2 TOTAL (test code = 27 mmol/L 23-31 4160085182) AGAP (test code = 2-16 6369279473) BUN (test code = 19 mg/dL 7-23 9402883633) GLUCOSE (test code = 102 mg/dL 70-110 9519010412) CREATININE (test code = 0.95 mg/dL 0.5-1.04 0227052976) CALCIUM (test code = 8.5 mg/dL 8.6-10.6 L 9461469811) eGFR (test code = mL/min/1.73m2 3372638468) KYLE (test code = KYLE) Association of [...] tests). Lab Interpretation Abnormal (test code = 42245-6) [facility] Test Item Value Reference Range Interpretation Comments MAGNESIUM (test code = 7411522720) 1.8 mg/dL 1.7-2.4 Lab Interpretation (test code = Normal 28593-4) [facility] 10:44:07 Test Item Value Reference Range Interpretation Comments MAGNESIUM (test code = 0038111284) 1.8 mg/dL 1.7-2.4 Lab Interpretation (test code = Normal 49005-8) [facility] (NA, K, CL, CO2, GLUCOSE, BUN, CREATININE, CA)2022-02-15 10:44:07 Test Item Value Reference Range Interpretation Comments NA (test code = 134 mmol/L 135-145 L 3788885999) K (test code = 3.2 mmol/L 3.5-5.0 L 9285881201) CL (test code = 98 mmol/L 98-108 4917068440) CO2 TOTAL (test code = 27 mmol/L 23-31 1716112087) AGAP (test code = 2-16 3540027961) BUN (test code = 19 mg/dL 7-23 3368784379) GLUCOSE (test code = 102 mg/dL 70-110 5423469559) CREATININE (test code = 0.95 mg/dL 0.50-1.04 4478152450) CALCIUM (test code = 8.5 mg/dL 8.6-10.6 L 4738462679) eGFR (test code = mL/min/1.73m2 0551165301) KYLE (test code = KYLE) Association of [...] tests). Lab Interpretation Abnormal (test code = 02411-9) [facility] WITH [id number] 10:12:06 Test Item Value Reference Range Interpretation Comments WBC (test code = See_Comment L [Automated 0068-2) message] The sy stem which generated this result transmitted reference range : 4.30 - 11.10 10*3/?L. The reference range was not used to interpret this result as normal/abnormal . RBC (test code = See_Comment L [Automated 009-8) message] The sy stem which generated this [...] RDW-SD (test code = 47.8 fL 39-49.9 54657-0) RDW-CV (test code = 15.2 % 12-15.5 788-0) PLT (test code = See_Comment L [Automated 777-3) message] The sy stem which generated this result transmitted reference range : 166 - 358 10*3/ ?L. The reference r abbey was not used to interpret this result as normal/abnormal . MPV (test code = 8.9 fL 9.5-12.9 L 01189-5) NRBC/100 WBC (test See_Comment [Automat ed code = 3646472929) message] The system which generated this result transmitted reference range : 0.0 - 10.0 /100 WBCs. The refer ence range was not u sed to interpret th is result as normal/abnormal . NRBC x10^3 (test code See_Comment [Auto mated = 8884655396) message] The s ystem which generated this result transmitted reference range : 10*3/?L. The reference range was not used to interpret this result as normal/abnormal . GRAN MAT (NEUT) % 65.9 % (test code = 770-8) IMM GRAN % (test code 0.30 % = 4234259204) LYMPH % (test code = 21.0 % 736-9) MONO % (test code = 10.1 % 5905-5) EOS % (test code = 2.4 % 713-8) BASO % (test code = 0.3 % 706-2) GRAN MAT x10^3(ANC) 2.49 10*3/uL 1.88-7.09 (test code = 5972248583) IMM GRAN x10^3 (test 0-0.06 code = 3109625385) LYMPH x10^3 (test code 0.79 10*3/uL 1.32-3.29 L = 731-0) MONO x10^3 (test code 0.38 10*3/uL 0.33-0.92 = 742-7) EOS x10^3 (test code = 0.09 10*3/uL 0.03-0.39 711-2) BASO x10^3 (test code 0.01-0.07 = 704-7) Lab Interpretation Abnormal (test code = 32018-2) [facility] WITH [id number] 10:12:06 Test Item Value Reference Range Interpretation [...] RDW-SD (test code = 47.8 fL 39.0-49.9 05771-1) RDW-CV (test code = 15.2 % 12.0-15.5 788-0) PLT (test code = See_Comment L [Automated 777-3) message] The sy stem which generated this result transmitted reference range : 166 - 358 10*3/ ?L. The reference r abbey was not used to interpret this result as normal/abnormal . MPV (test code = 8.9 fL 9.5-12.9 L 60868-9) NRBC/100 WBC (test See_Comment [Automat ed code = 4903997296) message] The system which generated this result transmitted reference range : 0.0 - 10.0 /100 WBCs. The refer ence range was not u sed to interpret th is result as normal/abnormal . NRBC x10^3 (test code See_Comment [Auto mated = 3506185766) message] The s ystem which generated this result transmitted reference range : 10*3/?L. The reference range was not used to interpret this result as normal/abnormal . GRAN MAT (NEUT) % 65.9 % (test code = 770-8) IMM GRAN % (test code 0.30 % = 9082919842) LYMPH % (test code = 21.0 % 736-9) MONO % (test code = 10.1 % 5905-5) EOS % (test code = 2.4 % 713-8) BASO % (test code = 0.3 % 706-2) GRAN MAT x10^3(ANC) 2.49 10*3/uL 1.88-7.09 (test code = 2074217344) IMM GRAN x10^3 (test 0.00-0.06 code = 9984687375) LYMPH x10^3 (test code 0.79 10*3/uL 1.32-3.29 L = 731-0) MONO x10^3 (test code 0.38 10*3/uL 0.33-0.92 = 742-7) EOS x10^3 (test code = 0.09 10*3/uL 0.03-0.39 711-2) BASO x10^3 (test code 0.01-0.07 = 704-7) Lab Interpretation Abnormal (test code = 95504-8) [facility] WITH [id number] 11:18:28 Test Item Value Reference Range Interpretation Comments WBC (test code = See_Comment L [Automated 2390-2) message] The sy stem which generated this result transmitted reference range : 4.30 - 11.10 10*3/?L. The reference range was not used to interpret this result as normal/abnormal . RBC (test code = See_Comment L [Automated 759-8) message] The sy stem which generated this [...] RDW-SD (test code = 49.5 fL 39-49.9 35120-4) RDW-CV (test code = 15.5 % 12-15.5 788-0) PLT (test code = See_Comment L [Automated 777-3) message] The sy stem which generated this result transmitted reference range : 166 - 358 10*3/ ?L. The reference r abbey was not used to interpret this result as normal/abnormal . MPV (test code = 11.4 fL 9.5-12.9 08130-4) IPF % (test code = 8.7 % 1.3-7.7 H Platelet count 6976567305) measured by fluorescence method. NRBC/100 WBC (test See_Comment [Automat ed code = 0140973609) message] The system which generated this result transmitted reference range : 0.0 - 10.0 /100 WBCs. The refer ence range was not u sed to interpret th is result as normal/abnormal . NRBC x10^3 (test code See_Comment [Auto mated = 5518580855) message] The s ystem which generated this result transmitted reference range : 10*3/?L. The reference range was not used to interpret this result as normal/abnormal . GRAN MAT (NEUT) % 62.0 % (test code = 770-8) IMM GRAN % (test code 0.80 % = 7979317747) LYMPH % (test code = 22.2 % 736-9) MONO % (test code = 9.6 % 5905-5) EOS % (test code = 5.1 % 713-8) BASO % (test code = 0.3 % 706-2) GRAN MAT x10^3(ANC) 2.21 10*3/uL 1.88-7.09 (test code = 2722122852) IMM GRAN x10^3 (test 0.03 10*3/uL 0-0.06 code = 6469635277) LYMPH x10^3 (test code 0.79 10*3/uL 1.32-3.29 L = 731-0) MONO x10^3 (test code 0.34 10*3/uL 0.33-0.92 = 742-7) EOS x10^3 (test code = 0.18 10*3/uL 0.03-0.39 711-2) BASO x10^3 (test code 0.01-0.07 = 704-7) POLYCHROMASIA (test 2+ See_Comment [Automa arpit code = 47476-6) message] The system which generated this result [...] . Lab Interpretation Abnormal (test code = 73902-3) [facility] METABOLIC PANEL (NA, K, CL, CO2, GLUCOSE, BUN, CREATININE, CA)2022-02-13 10:39:07 Test Item Value Reference Range Interpretation Comments NA (test code = 136 mmol/L 135-145 1356412530) K (test code = 4.1 mmol/L 3.5-5 3139553606) CL (test code = 102 mmol/L 98-108 8857792176) CO2 TOTAL (test code = 27 mmol/L 23-31 4699114712) AGAP (test code = 2-16 5132435362) BUN (test code = 22 mg/dL 7-23 7744599994) GLUCOSE (test code = 94 mg/dL 70-110 8515625741) CREATININE (test code = 0.94 mg/dL 0.5-1.04 9228663645) CALCIUM (test code = 8.1 mg/dL 8.6-10.6 L 6422632563) eGFR (test code = mL/min/1.73m2 2573941291) KYLE (test code = KYLE) Association of [...] tests). Lab Interpretation Abnormal (test code = 62794-8) [facility]2022-02-12 01:50:10 Test Item Value Reference Range Interpretation Comments Height (test code = in 0860880652) Weight (test code = lbs 6007616480) Systolic BP (test code mmHg = 0076584248) Diastolic BP (test code mmHg = 1188467714) Heart Rate (test code = bpm 4777238234) BSA (test code = 1.85 m2 4409472772) IVS (test code = 1.22 cm 5813723083) Interventricular Septum 1.22 cm Diastolic Thickness by 2D (test code = 8255532) LVIDD (test code = 5.00 cm 9912269854) Left Ventricular End 117.9 mL Diastolic Volume by Teichholz Method (test code = 9601706) LVPWD (test code = 1.22 cm 6937175341) PW (test code = 1.22 cm 0.6-1.2 4085711084) EF(Teich) (test code = 74.60 % 9229943754) LVIDS (test code = 2.80 cm 7257091977) Left Ventricular End 29.9 mL Systolic Volume by Teichholz Method (test code = 0305181) FS (test code = 44 % 9291925347) EF - 2D (test code = 74.60 % 02640046) LVOT diameter (test 2.16 cm code = 3444745585) LVOT area (test code = 3.70 cm2 0481424710) Ao root diam (test code 3.40 cm = 4599176700) Aortic root (test code 3.4 cm = 4997646666) Ao root annulus (test 3.4 cm code = 0015523357) LA size (test code = 3.4 cm 8563345291) TR Peak Spencer (test code 330.0 cm/s = 5329503417) Triscuspid Valve mmHg Regurgitation Peak Gradient (test code = 4288857677) PV REGURGITATION PEAK mmHg GRADIENT (test code = 9135557704) PI dec slope (test code 137.20 cm/s2 = 6679260086) LAV(MOD-sp4) (test code 102.90 mL = 7241895767) MV Peak E Spencer (test 84.1 cm/s code = 9030668996) MV Peak A Spencer (test 40.1 cm/s code = 6369821718) E/A ratio (test code = ratio 4630816091) MV valve area p 1/2 3.70 cm2 method (test code = 6493098587) MV dec slope (test code 413.00 cm/s2 = 7110993719) MV P1/2t max spencer (test 83.70 cm/s code = 9572899809) MV Prop V (test code = 41.80 cm/s 7001242733) Tapse (test code = 1.83 cm 1971365113) LVOT stroke volume 96.90 cm3 (test code = 8857477663) LVOT peak spencre (test 125.5 cm/s code = 8619671831) LVOT mn grad (test code mmHg = 8101791448) AV LVOT peak gradient mmHg (test code = 8244134946) LVOT peak VTI (test 26.4 cm code = 3806059963) LV V1 mean (test code = 78.10 cm/s 8694576236) Aortic valve mean 103.7 cm/s velocity (test code = 7071798446) Ao peak spencer (test code 165.6 cm/s = 2727157695) Ao VTI (test code = 37.2 cm 0677658431) AV area by cont VTI 2.6 cm2 (test code = 5210202124) AV area peak spencer (test 2.8 cm2 code = 9450762140) Ao max PG (test code = 11.00 mm[Hg] 3262330547) AV peak gradient (test mmHg code = 0845688966) AV valve area (test 2.60 cm2 code = 2765084274) AV mean gradient (test mmHg code = 3123556123) LA Volume Index (BP) 55.2 mL/m2 (test code = 1716025668) LA volume (BP) (test 102.1 mL code = 5689480444) LAV(MOD-sp2) (test code 86.10 mL = 6636958721) A2C EF (test code = 61.20 % 1774808966) EF(sp2-el) (test code = 61.60 % 2411681204) SV(MOD-sp2) (test code 47.10 mL = 4348508596) LV Diastolic Volume 70.7 mL (BP) (test code = 3240277069) A4C EF (test code = 53.00 % 3785711793) EF(MOD-bp) (test code = 56.70 % 0991905267) EF(sp4-el) (test code = 53.90 % 7319698251) LV Systolic Volume (BP) 30.6 mL (test code = 6844119569) SV(MOD-bp) (test code = 40.10 mL 8173074865) SV(MOD-sp4) (test code 32.40 mL = 5541142744) SV(sp4-el) (test code = 33.10 mL 0368795068) EF (test code = 1420630673) Left Ventricular Stroke 40.1 mL Volume by 2-D Biplane-MOD (test code = 3910841) LV Diastolic Volume 38.2 mL/m2 Index (BP) (test code = 1953379326) LV Systolic Volume 16.5 mL/m2 Index (BP) (test code = 4850648513) Radiology Study observation (narrative) (test code = 87274-4) KYLE (test code = KYLE) ?Left?Ventricle: Left [...] motion is normal. [facility] [id number] 05:45:01 Test Item Value Reference Interpretation Comments Range TROPONIN I (test See_Comment [Automated code = 8795537312) message] The system which generated this result [...] biotin. Lab Interpretation Normal (test code = 53819-8) [facility] [id number] 05:41:40 Test Item Value Reference Range Interpretation Comments NT-proBNP (test code 4250 pg/mL See_Comment H [Autom ated = 6578633823) message] The system which generated this result transmitted reference range : <=125. The reference range was not used to interpret this result as normal/abnormal . KYLE (test code = KYLE) Biotin has been reported to cause a negative bias, interpret results relative to patient's use of biotin. Lab Interpretation Abnormal (test code = 84836-4) [facility] [id number] 05:35:21 Test Item Value Reference Range Interpretation Comments APTT Patient (test See_Comment [Automat ed code = 3173-2) message] The system which generated this result transmitted reference range : 23 - 38 Seconds . The reference range was not used to interpr et this result as normal/abnormal . KYLE (test code = KYLE) The [facility] patient population mean normal value for aPTT is 30 seconds. Lab Interpretation Normal (test code = 29166-6) [facility] [id number] 05:35:21 Test Item Value Reference Range Interpretation Comments APTT Patient (test See_Comment [Automat ed code = 3173-2) message] The system which generated this result transmitted reference range : 23 - 38 Seconds . The reference range was not used to interpr et this result as normal/abnormal . KYLE (test code = KYLE) The [facility] patient population mean normal value for aPTT is 30 seconds. Lab Interpretation Normal (test code = 12286-4) [facility] / [id number] 05:33:21 Test Item Value Reference Range Interpretation [...] tions. Lab Interpretation (test Normal code = 29258-8) [facility]OL[facility] (45231)2022-02-11 05:33:21 Test Item Value Reference Range Interpretation Comments NA (test code = 137 mmol/L 135-145 [id number]) K (test code = 4.3 mmol/L 3.5-5 2971607999) CL (test code = 103 mmol/L 98-108 0333894279) CO2 TOTAL (test code = 25 mmol/L 23-31 2692229421) AGAP (test code = 2-16 0091578155) BUN (test code = 19 mg/dL 7-23 5616140035) GLUCOSE (test code = 120 mg/dL 70-110 H 6962370660) CREATININE (test code = 1.15 mg/dL 0.5-1.04 H 9925782926) TOTAL BILI (test code = 0.9 mg/dL 0.1-1.1 9965609037) CALCIUM (test code = 8.9 mg/dL 8.6-10.6 5064835392) T PROTEIN (test code = 6.6 g/dL 6.3-8.2 2966309693) ALBUMIN (test code = 4.0 g/dL 3.5-5 5897056487) ALK PHOS (test code = 73 U/L 34-122 6965644348) ALTv (test code = 18 U/L 5-35 1742-6) AST(SGOT) (test code = 31 U/L 13-40 4521441864) eGFR (test code = mL/min/1.73m2 6193171566) KYLE (test code = KYLE) Association of [...] tests). Lab Interpretation Abnormal (test code = 07558-5) [facility]. METABOLIC PANEL (14911)2022-02-11 05:33:21 Test Item Value Reference Range Interpretation Comments NA (test code = 137 mmol/L 135-145 3533653096) K (test code = 4.3 mmol/L 3.5-5.0 9817244745) CL (test code = 103 mmol/L 98-108 5294156129) CO2 TOTAL (test code = 25 mmol/L 23-31 0181612319) AGAP (test code = 2-16 5991098040) BUN (test code = 19 mg/dL 7-23 6908083347) GLUCOSE (test code = 120 mg/dL 70-110 H 3701335407) CREATININE (test code = 1.15 mg/dL 0.50-1.04 H 3605570605) TOTAL BILI (test code = 0.9 mg/dL 0.1-1.1 7286721244) CALCIUM (test code = 8.9 mg/dL 8.6-10.6 4885176560) T PROTEIN (test code = 6.6 g/dL 6.3-8.2 9237129048) ALBUMIN (test code = 4.0 g/dL 3.5-5.0 6785822822) ALK PHOS (test code = 73 U/L 34-122 3488942520) ALTv (test code = 18 U/L 5-35 2-6) AST(SGOT) (test code = 31 U/L 13-40 4860102637) eGFR (test code = mL/min/1.73m2 3011608005) KYLE (test code = KYLE) Association of [...] tests). Lab Interpretation Abnormal (test code = 92375-2) [facility] / [id number] 05:33:21 Test Item Value Reference Range Interpretation Comments PROTIME PATIENT (test See_Comment [Auto mated message] code = 5964-2) The system [employer] ich generated this result transmitted ref erence range: 12.0 - 1 4.7 Seconds. The re ference range was not u sed to interpret this result as normal/abnor mal. INR (test code = 6301-6) Nor mal INR <1.1; Warfarin Therap eutic range 2.0 to 3. 0 or 2.5 to 3.5, dep ending upon the indica tions. Lab Interpretation (test Normal code = 78402-5) [facility] WITH [id number] 05:14:37 Test Item Value Reference Range Interpretation [...] RDW-SD (test code = 47.9 fL 39-49.9 49255-2) RDW-CV (test code = 14.9 % 12-15.5 788-0) PLT (test code = See_Comment L [Automated 777-3) message] The sy stem which generated this result transmitted reference range : 166 - 358 10*3/ ?L. The reference r abbey was not used to interpret this result as normal/abnormal . MPV (test code = 9.1 fL 9.5-12.9 L 45504-1) NRBC/100 WBC (test See_Comment [Automat ed code = 7993887393) message] The system which generated this result transmitted reference range : 0.0 - 10.0 /100 WBCs. The refer ence range was not u sed to interpret th is result as normal/abnormal . NRBC x10^3 (test code See_Comment [Auto mated = 3359153251) message] The s ystem which generated this result transmitted reference range : 10*3/?L. The reference range was not used to interpret this result as normal/abnormal . GRAN MAT (NEUT) % 78.5 % (test code = 770-8) IMM GRAN % (test code 0.20 % = 5419850265) LYMPH % (test code = 11.6 % 736-9) MONO % (test code = 8.4 % 5905-5) EOS % (test code = 1.1 % 713-8) BASO % (test code = 0.2 % 706-2) GRAN MAT x10^3(ANC) 3.45 10*3/uL 1.88-7.09 (test code = 2295389512) IMM GRAN x10^3 (test 0-0.06 code = 0278501671) LYMPH x10^3 (test code 0.51 10*3/uL 1.32-3.29 L = 731-0) MONO x10^3 (test code 0.37 10*3/uL 0.33-0.92 = 742-7) EOS x10^3 (test code = 0.05 10*3/uL 0.03-0.39 711-2) BASO x10^3 (test code 0.01-0.07 = 704-7) Lab Interpretation Abnormal (test code = 17512-6) [facility] Coronavirus 2019 Ycmejek9265-73-55 18:08:00 Test Item Value Reference Range Interpretation [...] det ection of nucleic acids f rom nfqZXCR-MhL-2 v irus and diagnosis of SA RS-CoV-2 virusinfection. It is an Emergency Use Authorization ( EUA) testauthorized by the U.S. FDA. BASIC METABOLIC [id number] 09:37:00 Test Item Value Reference Range Interpretation [...] = 9.0 mg/dL 8.0-10.5 N CA) PROTHROMBIN [id number] 09:32:00 Test Item Value Reference Range Interpretation [...] (to prevent recurrent infar ct). 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 [facility] - XR CHEST 1 [id number] 00:00:00 [facility] 1955 Sex: F FAX: RobinUrmilaBibiana DanielFrancisco Kristen VARELA [phone] [place]: St: ADM FAX: Mike Scales MD [phone] FAX: Bahman Chopra [phone] Name: LIO WATTS [facility] : 1955 Age/S: 66/F [address] [place] [address] Unit #: [id number] Loc: [place] [address] Phys: Bahman Chopra [facility] Acct: [id number] Dis Date: Status: ADM IN PHONE #: [phone] Exam Date: 06/17/2021 1320 FAX #: [phone] Reason: WATCHMAN EXAMS: CPT CODE: [id number] XR CHEST 1 V 83552 PROCEDURE INFORMATION: Exam: XR Chest Exam date [...] failure/volume loading. 2. Subsegmental atelectasis bilateral. at 1338 Reported and signed by: Lambert Vega M.D. CC: Carmenza Rahman DO; Mike Lund MD; Bahman Chopra Technologist: RT Taylor(R) Trnscrd Date/Time/By: 06/17/2021 (3079) : By: Susanna Orig Print D/T: S: 06/17/2021 (9798) PAGE 1 Signed ReportCOVID 19 Asymptomatic IH [...] high or waivedcomplexit y tests. BASIC METABOLIC [id number] 11:37:00 Test Item Value Reference Range Interpretation [...] code = 9.0 mg/dL 8.0-10.5 N CA) DMEKGISRHM7150-46-93 11:37:00 Test Item Value Reference Range Interpretation Comments PREALBUMIN (test code = PREALB) 24.3 mg/dL 16.0-40.0 N PROTHROMBIN [id number] 11:03:00 Test Item Value Reference Range Interpretation [...] - Acute Myocardia l Infarction (to prevent recurre nt infarct). CBC W/AUTO VJFU5935-28-29 10:59:00 Test Item Value Reference Range Interpretation [...] 0.0-0.1 N NRBC#) - XR CHEST 2 [id number] 00:00:00 [facility] 1955 Sex: F FAX: Carmenza Kelly DO [phone] [place]: St: PRE FAX: Mike Scales MD [phone] Name: LIO WATTS [facility] : 1955 Age/S: 66/F [address] [place] [address] Blvd Unit #: [id number] Loc: [place], [place] [address]Pvpm: Mike Lund MD Acct: [id number] Dis Date: Status: PRE SDC PHONE #: [phone] Exam Date: 06/16/2021 1120 FAX #: [phone] Reason: PREOP EXAMS: CPT CODE: [id number] XR CHEST 2 V 01019 PROCEDURE INFORMATION: Exam: XR Chest Exam date [...] Technologist: Danielle Nix RT(R) Trnscrd Date/Time/By: 06/16/2021 (1131) : By: [email or web address] Orig Print D/T: S: 06/16/2021 (7651) PAGE 1 Signed ReportGastrointestinal gtlqz7062-18-21 04:35:05 Test Item Value Reference Interpretation Comments [...] Rotavirus PCR (test Not Detected code = 4361845) Salmonella PCR (test Not Detected code = [...] PCR Not Detected (test code = 7124) [facility] qrujrze1009-62-80 19:30:47 Test Item Value Reference Range Interpretation Comments Case number (test [id number] code = 1497890) Surgical pathology See link below for PDF report (test code = Lab Report 2255) Result status (test This is Supplemental code = 0849785) Report for [id number] [facility]2021-04-09 16:31:00 Test Item Value Reference Range Interpretation Comments POC Activated Clotting Time (test code 153 s = POC Activated Clotting Time) [facility]lineZdphcwzWVHWEZLFYP4469-27-79 16:31:00 Test Item Value Reference Range Interpretation Comments POC Activated Clotting Time (test code 153 s = POC Activated Clotting Time) [facility] ShorelineWskvoqpMWESKYJJQO6356-51-98 16:31:00 Test Item Value Reference Range Interpretation Comments POC Activated Clotting Time (test code 153 s = POC Activated Clotting Time) [facility]lineJldchqpRRXPOYZYLG8197-44-60 16:31:00 Test Item Value Reference Range Interpretation Comments POC Activated Clotting Time (test code 153 s = POC Activated Clotting Time) [facility]lineAfsuhzmVCDIDKAZIS2247-56-83 16:31:00 Test Item Value Reference Range Interpretation Comments POC Activated Clotting Time (test code 153 s = POC Activated Clotting Time) [facility]lineOskmsmcSYGXDODQOD8968-35-87 16:31:00 Test Item Value Reference Range Interpretation Comments POC Activated Clotting Time (test code 153 s = POC Activated Clotting Time) [facility] ShorelineQyczzqqKVHYUPPVWN6301-96-24 16:31:00 Test Item Value Reference Range Interpretation Comments POC Activated Clotting Time (test code 153 s = POC Activated Clotting Time) [facility] ShorelineCwvuxgkUXJJFSMBIQ0558-85-14 14:37:00 Test Item Value Reference Range Interpretation Comments POC Activated Clotting Time (test code 454 s = POC Activated Clotting Time) [facility] ShorelineJafzrhuONKQZHZYNL2081-07-55 14:37:00 Test Item Value Reference Range Interpretation Comments POC Activated Clotting Time (test code 454 s = POC Activated Clotting Time) [facility]lineFccfdnnIRBMZYWTHR8630-85-19 14:37:00 Test Item Value Reference Range Interpretation Comments POC Activated Clotting Time (test code 454 s = POC Activated Clotting Time) [facility]lineJudzuphBXYUOYMIDM4622-63-18 14:37:00 Test Item Value Reference Range Interpretation Comments POC Activated Clotting Time (test code 454 s = POC Activated Clotting Time) [facility]lineJflsbafIGWMITEHCR8436-02-29 14:37:00 Test Item Value Reference Range Interpretation Comments POC Activated Clotting Time (test code 454 s = POC Activated Clotting Time) [facility] ShorelineLstifavCUBTJJWLTO7189-93-26 14:37:00 Test Item Value Reference Range Interpretation Comments POC Activated Clotting Time (test code 454 s = POC Activated Clotting Time) [facility]lineAjzmclhXTSDFMVDDT1342-91-65 14:37:00 Test Item Value Reference Range Interpretation Comments POC Activated Clotting Time (test code 454 s = POC Activated Clotting Time) [facility] ShorelineQvosksvZDQPRWTMUZ7852-75-52 14:13:00 Test Item Value Reference Range Interpretation Comments POC Activated Clotting Time (test code 354 s = POC Activated Clotting Time) [facility] ShorelineWfaxqtpNOCTTXGMQZ6636-71-43 14:13:00 Test Item Value Reference Range Interpretation Comments POC Activated Clotting Time (test code 354 s = POC Activated Clotting Time) [facility] ShorelineYkitheqHUYFJPBHGV1754-75-38 14:13:00 Test Item Value Reference Range Interpretation Comments POC Activated Clotting Time (test code 354 s = POC Activated Clotting Time) [facility] ShorelineMkqjqokIYLYPVUWQZ4150-35-22 14:13:00 Test Item Value Reference Range Interpretation Comments POC Activated Clotting Time (test code 354 s = POC Activated Clotting Time) [facility] ShorelineShffnysMNSFLTRXYI1383-60-43 14:13:00 Test Item Value Reference Range Interpretation Comments POC Activated Clotting Time (test code 354 s = POC Activated Clotting Time) [facility]neyHwzwpckNKWCWIVSNN9248-07-59 14:13:00 Test Item Value Reference Range Interpretation Comments POC Activated Clotting Time (test code 354 s = POC Activated Clotting Time) [facility]neyLeoxhtqRYPUYTIZBA9778-64-17 14:13:00 Test Item Value Reference Range Interpretation Comments POC Activated Clotting Time (test code 354 s = POC Activated Clotting Time) [facility] XNAWCBG1407-38-58 10:37:00Negative (08/29/20 5:37 AM) [facility] HermannCHEM OJBVM4682-04-55 10:37:85547Gbhxmude HermannCHEM PANEL 2020-08-29 10:37:0028[facility] HermannCHEM UPHKW2451-45-28 10:37:001.01[facility] HermannCHEM QSBTO2012-79-61 10:37:65828Nncducvy HermannCHEM ZSGXL5841-78-99 10:37:003.8[facility] HermannCHEM WANLQ2091-28-93 10:37:78041Dpsltgho HermannCHEM QMHTA1773-44-92 10:37:0028[facility] HermannCHEM GGISJ4319-73-42 10:37:009.8 [facility] HermannCHEM TCVJO3984-03-74 10:37:0011.8[facility] HermannCHEM PANEL 2020-08-29 10:37:0059[facility] HermannCHEM SEBBM3186-26-13 10:37:002.9[facility] HhmgtmxBFGSZLWELB2560-48-00 10:37:006.8[facility] ZrjquduSQVHIUFQKE7147-11-84 10:37:004.47[facility] SggxqgqSYQBVUHKRU2086-74-79 10:37:0010.6[facility] YCCQAEPWOH6012-18-87 10:37:0034.0[facility] NixqegjLXAZPXWGZT2134-95-26 10:37:00 76.1[facility] YkxeeduWYWSMAFEFY7101-09-52 10:37:00 Test Item Value Reference Range Interpretation Comments MCH (test code = MCH) 23.8 pg 27.0-31.0 [facility] VqcwusdWRFEAJWHSV2164-67-74 10:37:0031.3[facility] HermannHEMATOLOGY 2020-08-29 10:37:0018.2[facility] FzydmweGFHZRPZMSU5897-92-11 10:37:32592Exopxrlp QjxycuhEYNMHUTSUH8494-90-23 10:37:007.5[facility] KmnscxiQGLZHXPYZT0632-31-22 10:37:00 Test Item Value Reference Range Interpretation Comments PT (test code = PT) 12.8 s 12.0-14.7 [facility] TjnorciFFRSOJGTQD7056-70-03 10:37:00 Test Item Value Reference Range Interpretation Comments INR (test code = INR) 0.97 1 0.85-1.17 [facility] UozsrzfJRFYSRRYHK6652-56-27 10:37:00 Test Item Value Reference Range Interpretation Comments PTT (test code = PTT) 25.0 s 22.9-35.8 [facility] DgtmxuyGQVHIVDRDZ8526-58-58 10:37:0070.5[facility] HermannHEMATOLOGY 2020-08-29 10:37:0018.8[facility] AuddrydRZWRNWUZAS9732-61-31 10:37:009.5[facility] GuwbtdlBKXYUUAMSE6924-85-06 10:37:000.9[facility] RpjfmoxLNWGIYVJYZ5015-55-22 10:37:000.3[facility] WzsqhliLVZNOCURPL1498-30-65 10:37:004.8[facility] PJAJUEIBUW1809-75-85 10:37:001.3[facility] TezzissZUBOHYZPPV6392-62-91 10:37:000.6 [facility] TtuvyjvZCDLFIJDVI9028-55-22 10:37:000.1[facility] HermannHEMATOLOGY 2020-08-29 10:37:001+ *ABN*(08/29/20 5:37 AM)[facility] OhzraasZQKFIZFJMV3415-45-43 10:37:00Not Detected (08/29/20 5:37 AM)[facility] HermannBLOOD BANK RESULTS 2020-08-29 10:37:00Negative (08/29/20 5:37 AM)[facility] HermannCHEM LXXHS8552-57-01 10:37:43438Zukxmlvo HermannCHEM LQOZS9416-69-91 10:37:0028[facility] HermannCHEM VMLHP1940-53-66 10:37:001.01[facility] HermannCHEM AUGML0809-54-29 10:37:74350 [facility] HermannCHEM IKAHW7626-10-21 10:37:003.8[facility] HermannCHEM PANEL 2020-08-29 10:37:37111Qcvzhjmc HermannCHEM RUDLB2684-33-91 10:37:0028[facility] HermannCHEM KTOYQ4507-51-44 10:37:009.8[facility] HermannCHEM GFTZC0041-01-42 10:37:0011.8[facility] HermannCHEM AGQSV9703-17-46 10:37:0059[facility] HermannCHEM BWDSY2765-12-83 10:37:002.9[facility] RvogeavZLJQIURBUS2097-60-28 10:37:006.8 [facility] OppwcziCVUUQKBUFD5940-43-90 10:37:004.47[facility] HermannHEMATOLOGY 2020-08-29 10:37:0010.6[facility] RormcbbSBBWUPXAGY2706-73-66 10:37:0034.0[facility] JnotmhiFDPNLLBZVU2136-17-82 10:37:0076.1[facility] XmnyybnNEJQQRVWZX0835-72-46 10:37:00 Test Item Value Reference Range Interpretation Comments MCH (test code = MCH) 23.8 pg 27.0-31.0 [facility] UlautrhVZJEDUEIWF0440-35-27 10:37:0031.3[facility] HermannHEMATOLOGY 2020-08-29 10:37:0018.2[facility] IbzmonzPRMYTKOHBE0575-11-40 10:37:40175Lsfvexrq IrzkxqwVUKVAGYXSG3227-89-36 10:37:007.5[facility] TnmjvbkNGVKNWBFEV2212-94-91 10:37:00 Test Item Value Reference Range Interpretation Comments PT (test code = PT) 12.8 s 12.0-14.7 [facility] AinluswNJZAASPEHM1499-33-43 10:37:00 Test Item Value Reference Range Interpretation Comments INR (test code = INR) 0.97 1 0.85-1.17 [facility] MjkqdcmJHEVXUDCPU9354-11-56 10:37:00 Test Item Value Reference Range Interpretation Comments PTT (test code = PTT) 25.0 s 22.9-35.8 [facility] EgotgpaDNZTBTCWBV4568-38-42 10:37:0070.5[facility] HermannHEMATOLOGY 2020-08-29 10:37:0018.8[facility] GeyyblbYJWLCJWUPE7319-53-07 10:37:009.5[facility] SbsqgvoCNRPEALKVK8598-23-45 10:37:000.9[facility] FyklkhhNQNNMDTKTR0878-18-31 10:37:000.3[facility] RpwefzkEGHSWIGGWW6823-93-82 10:37:004.8[facility] MSNXMGFVWV1809-52-04 10:37:001.3[facility] OjgtizkMCSEIJFRXI6327-99-58 10:37:000.6 [facility] LnkyqmmRLKYYPFWXE7564-92-91 10:37:000.1[facility] HermannHEMATOLOGY 2020-08-29 10:37:001+ *ABN*(08/29/20 5:37 AM)[facility] VoentwcAQLXWVFWGQ8709-23-24 10:37:00Not Detected (08/29/20 5:37 AM)[facility] HermannBLOOD BANK RESULTS 2020-08-29 10:37:00Negative (08/29/20 5:37 AM)[facility] HermannCHEM AUGDP4782-38-99 10:37:12619Awdmgdrv HermannCHEM TVMZM1993-92-02 10:37:0028[facility] HermannCHEM DGLVI3889-84-22 10:37:001.01[facility] HermannCHEM MXJIK7044-99-85 10:37:17209 [facility] HermannCHEM QIMFL2408-65-88 10:37:003.8[facility] HermannCHEM PANEL 2020-08-29 10:37:96827Cdssycrh HermannCHEM YRBTK4888-97-53 10:37:0028[facility] HermannCHEM AXVQD7625-31-72 10:37:009.8[facility] HermannCHEM ETMNM6180-12-57 10:37:0011.8[facility] HermannCHEM RAUEL6058-33-46 10:37:0059[facility] HermannCHEM ASRWZ7985-13-14 10:37:002.9[facility] CjtcjldDQBEETHFIB7953-23-92 10:37:006.8 [facility] DuxbcrhNTVGYCZXER4037-49-47 10:37:004.47[facility] HermannHEMATOLOGY 2020-08-29 10:37:0010.6[facility] JsnhtocQIJPSASSXH1209-03-11 10:37:0034.0[facility] WkghjogKFQUWQSMLG8541-59-22 10:37:0076.1[facility] EafqlutDHKPXWTKNN0289-50-60 10:37:00 Test Item Value Reference Range Interpretation Comments MCH (test code = MCH) 23.8 pg 27.0-31.0 [facility] SjqliunVVDKIPXYKD5524-94-20 10:37:0031.3[facility] HermannHEMATOLOGY 2020-08-29 10:37:0018.2[facility] RvuaiauQCFBUFTGPI5766-78-06 10:37:62279Pdkrhubi FifanheJRLSRGXXFA4601-96-15 10:37:007.5[facility] SokfgncQWBYDZWEYI3451-08-14 10:37:00 Test Item Value Reference Range Interpretation Comments PT (test code = PT) 12.8 s 12.0-14.7 [facility] VjdxjvaEPZYZPOKHW5621-22-80 10:37:00 Test Item Value Reference Range Interpretation Comments INR (test code = INR) 0.97 1 0.85-1.17 [facility] ExztywgCNDWMQNBVC7921-31-09 10:37:00 Test Item Value Reference Range Interpretation Comments PTT (test code = PTT) 25.0 s 22.9-35.8 [facility] BysgrueQXCENFHGOL5942-45-66 10:37:0070.5[facility] HermannHEMATOLOGY 2020-08-29 10:37:0018.8[facility] XyfoofdPEXGBZEXAX4066-50-03 10:37:009.5[facility] KkxditxJUFDYWOYCC2621-39-75 10:37:000.9[facility] OjbmjmsEPDJBCTARC6239-52-32 10:37:000.3[facility] GbwugbnKWOTPRJQTP5352-37-56 10:37:004.8[facility] NAROPPLCPW5836-99-26 10:37:001.3[facility] QzffozrOLQQXRARGI1518-16-99 10:37:000.6 [facility] CdgicabNUBSTEDIMX7006-64-19 10:37:000.1[facility] HermannHEMATOLOGY 2020-08-29 10:37:001+ *ABN*(08/29/20 5:37 AM)[facility] GmwepneMLZLGDMYID4723-31-20 10:37:00Not Detected (08/29/20 5:37 AM)[facility] HermannBLOOD BANK RESULTS 2020-08-29 10:37:00Negative (08/29/20 5:37 AM)[facility] HermannCHEM FMBHA9395-16-69 10:37:67940Bvbzrbbp HermannCHEM RSKIP0991-08-25 10:37:0028[facility] HermannCHEM JPASX7323-10-94 10:37:001.01[facility] HermannCHEM TTHNA1988-63-12 10:37:31244 [facility] HermannCHEM CVIAP8676-38-50 10:37:003.8[facility] HermannCHEM PANEL 2020-08-29 10:37:65458Kvumoivf HermannCHEM RFCIR5054-14-06 10:37:0028[facility] HermannCHEM XNNGS8028-39-47 10:37:009.8[facility] HermannCHEM PYMCY8730-27-79 10:37:0011.8[facility] HermannCHEM WGGVT4275-60-93 10:37:0059[facility] HermannCHEM FJSEP7481-04-32 10:37:002.9[facility] UoaaikbCUYTCZGMTE2076-70-64 10:37:006.8 [facility] HqvuacwDWSOARJGOV2519-52-96 10:37:004.47[facility] HermannHEMATOLOGY 2020-08-29 10:37:0010.6[facility] GubkrvkHBXQKXSQDY3199-89-46 10:37:0034.0[facility] PmbrgfhZFCQVYWKJF5424-53-76 10:37:0076.1[facility] SezlmlbKAULJONAAR8403-35-92 10:37:00 Test Item Value Reference Range Interpretation Comments MCH (test code = MCH) 23.8 pg 27.0-31.0 [facility] OiggxxdFVIKNGWTFH2514-04-12 10:37:0031.3[facility] HermannHEMATOLOGY 2020-08-29 10:37:0018.2[facility] QrefqjtFMHBQPGKJA3133-14-56 10:37:31801Vex[place]abo DnvwhlvQXIVSZHWNR3550-63-54 10:37:007.5[facility] OwefcxiTQPRDCUDHU0186-41-88 10:37:00 Test Item Value Reference Range Interpretation Comments PT (test code = PT) 12.8 s 12.0-14.7 [facility] BpucdumPVKDOHSXXL2771-86-66 10:37:00 Test Item Value Reference Range Interpretation Comments INR (test code = INR) 0.97 1 0.85-1.17 [facility] LkyiamzJDYZCOGTWI3735-03-17 10:37:00 Test Item Value Reference Range Interpretation Comments PTT (test code = PTT) 25.0 s 22.9-35.8 [facility] HovthedKXIGQGTWIE4663-59-20 10:37:0070.5[facility] HermannHEMATOLOGY 2020-08-29 10:37:0018.8[facility] DiexghyXSMOMFGBYW5262-97-24 10:37:009.5[facility] OtykxpdOYOJXFTHJE1514-03-28 10:37:000.9[facility] SoktnqjTMZZGHBTDQ9066-09-38 10:37:000.3[facility] KdzspkaUQOMUTWGUV8579-52-13 10:37:004.8[facility] IDMDIVMGMA1916-03-68 10:37:001.3[facility] FnbdwffNUCDFYLZGR9902-13-79 10:37:000.6 [facility] CtqxyofJRLPRXDXTF5652-59-70 10:37:000.1[facility]annHE[facility]OLOGY 2020-08-29 10:37:001+ *ABN*(08/29/20 5:37 AM)[facility] RybrrfsGMEFFBWZTA0163-65-99 10:37:00Not Detected (08/29/20 5:37 AM)[facility] 2020-08-29 10:37:00Negative (08/29/20 5:37 AM)[facility]annCHEM IJVJY5744-22-42 10:37:04241Ymngtutw HermannCHEM HWUHU9497-42-26 10:37:0028[facility]annCHEM ZBANG0724-74-18 10:37:001.01[facility]annCHEM BARXE4570-62-04 10:37:19175 [facility]annCHE[facility] ESTIU3402-34-49 10:37:003.8[facility]annCHEM PANEL 2020-08-29 10:37:34858Xmxipwgz HermannCHEM USZJN6885-33-87 10:37:0028[facility]annCHEM YCCFG3092-70-22 10:37:009.8[facility]annCHEM AHXJQ0236-09-33 10:37:0011.8[facility]annCHEM VDGLF7954-32-86 10:37:0059[facility]annCHEM ZMSXK0234-10-76 10:37:002.9[facility] YtwhgtsBXGSRSEWYT4508-21-93 10:37:006.8 [facility] UwskwspAATTVIMXRW7719-93-69 10:37:004.47[facility]annHEMATOLOGY 2020-08-29 10:37:0010.6[facility] DcosnfeJBHGZMAHIB6508-31-92 10:37:0034.0[facility] WfbjlsgPTCBARJVYX1504-31-26 10:37:0076.1[facility] NpdqttzDLYSINEQUD4744-60-70 10:37:00 Test Item Value Reference Range Interpretation Comments MCH (test code = MCH) 23.8 pg 27.0-31.0 [facility] TpkmqreVNOEKTELWD2725-77-67 10:37:0031.3[facility]annHE[facility]OLOGY 2020-08-29 10:37:0018.2[facility] DludcypBUVBYTYZLU3466-10-41 10:37:38489Mkemevvp RryafcpQCBFFNMUMX2234-43-28 10:37:007.5[facility] VesxvcxGLZRLOZGBT2287-91-32 10:37:00 Test Item Value Reference Range Interpretation Comments PT (test code = PT) 12.8 s 12.0-14.7 [facility] GwkdfegXCOIVWJTFF8741-42-37 10:37:00 Test Item Value Reference Range Interpretation Comments INR (test code = INR) 0.97 1 0.85-1.17 [facility] QzmylqsHIXCSBFKFD2067-29-18 10:37:00 Test Item Value Reference Range Interpretation Comments PTT (test code = PTT) 25.0 s 22.9-35.8 [facility] NfxnlhgJBEDXUDPNK5720-66-44 10:37:0070.5[facility]annHEMATOLOGY 2020-08-29 10:37:0018.8[facility] InvreutTSPHILMAQQ0270-31-92 10:37:009.5[facility] XoijiczXAEFXQCKVU5005-39-83 10:37:000.9[facility] FrfjakfXGIUAPNUNN6782-80-26 10:37:000.3[facility] VwrvdxsXIFTLVZOOL6972-99-19 10:37:004.8[facility] KNRLUTNAZQ9816-13-43 10:37:001.3[facility] BftptxoPNICQYYBRS8788-04-85 10:37:000.6 [facility] YreoxsgRINXQRZAVF4099-61-49 10:37:000.1[facility]annHEMATOLOGY 2020-08-29 10:37:001+ *ABN*(08/29/20 5:37 AM)[facility] CppxuwgBKBNSRIHYA9002-48-49 10:37:00Not Detected (08/29/20 5:37 AM)[facility]annBL[facility] RESULTS 2020-08-29 10:37:00Negative (08/29/20 5:37 AM)[facility]annCHEM XXZVS9396-12-09 10:37:53322Rbcjwvoc HermannCHEM SFLTX5463-21-25 10:37:0028[facility]annCHEM KSSDX6277-21-93 10:37:001.01[facility]annCHEM XUOEM3697-97-30 10:37:74376 [facility]annCHEM BXWVZ0244-22-17 10:37:003.8[facility]ann[facility]M PANEL 2020-08-29 10:37:01007Meaoymud HermannCHEM EWIKT9121-40-33 10:37:0028[facility]annCHEM GOXTE6254-37-35 10:37:009.8[facility]annCHEM FGNAJ3073-29-66 10:37:0011.8[facility]annCHEM IIPRA6471-13-11 10:37:0059[facility]annCHEM IDGZO8920-62-77 10:37:002.9[facility] MlecpjiSNMLEFFRGF1275-56-03 10:37:006.8 [facility] PzaudjhOUPKUWDJPU5938-09-51 10:37:004.47[facility]annHEMATOLOGY 2020-08-29 10:37:0010.6[facility] AutbripLBVZBYSOQT7717-92-88 10:37:0034.0[facility] GdnaanjKCZIJHHUQK2535-56-99 10:37:0076.1[facility] TbaqrsqLVWDTEWRAI1578-69-24 10:37:00 Test Item Value Reference Range Interpretation Comments MCH (test code = MCH) 23.8 pg 27.0-31.0 [facility] NeanmyrRHCKEPZSST4109-71-88 10:37:0031.3[facility]annHEMATOLOGY 2020-08-29 10:37:0018.2[facility] UaaztduUIJQYXSOQH4554-80-07 10:37:71844Hfwjnfrp YnvtcuePICTZLQOZG1310-49-16 10:37:007.5[facility] YstdsnoRCRAWHDTFM0144-27-00 10:37:00 Test Item Value Reference Range Interpretation Comments PT (test code = PT) 12.8 s 12.0-14.7 [facility] AhcesqzZNLMHFYESF3384-41-89 10:37:00 Test Item Value Reference Range Interpretation Comments INR (test code = INR) 0.97 1 0.85-1.17 [facility] HqscbjuIMSPUOSPPY2553-08-31 10:37:00 Test Item Value Reference Range Interpretation Comments PTT (test code = PTT) 25.0 s 22.9-35.8 [facility] XxkfmryRSIVIANDIH6902-23-37 10:37:0070.5[facility]annHEMATOLOGY 2020-08-29 10:37:0018.8[facility] VhkojogQNGNEEQDMY2974-24-89 10:37:009.5[facility] AernhzwQRWZTISQQX3833-99-30 10:37:000.9[facility] PoshjndDYMOIKSIBM3089-73-16 10:37:000.3[facility] OlnfeflGKUFXVUBSO5360-95-20 10:37:004.8[facility] IHBJGTRSQB9168-07-51 10:37:001.3[facility] CpqbkctEZYGNFJXJM0329-57-65 10:37:000.6 [facility] JbfnjmyIILQCPNCLA4675-14-07 10:37:000.1[facility]annHEMATOLOGY 2020-08-29 10:37:001+ *ABN*(08/29/20 5:37 AM)[facility] KfvtayyCAKXENDXIJ0387-71-76 10:37:00Not Detected (08/29/20 5:37 AM)[facility]annBLOOD BANK RESULTS 2020-08-29 10:37:00Negative (08/29/20 5:37 AM)[facility]annCHEM YPQGB5660-00-84 10:37:10333Gfpgskwn HermannCHEM HYFOQ6509-76-79 10:37:0028[facility]annCHEM AKETC2066-34-09 10:37:001.01[facility]annCHEM CKPIS2746-97-52 10:37:71621 [facility] QMCUS7595-35-38 10:37:003.8[facility] HermannCHEM PANEL 2020-08-29 10:37:[place] HermannCHEM SJKNA1107-12-55 10:37:0028[facility]annCHEM KGUSV2487-69-90 10:37:009.8[facility]annCHEM AXWCQ0528-03-21 10:37:0011.8[facility]annCHEM BCTIR6272-80-64 10:37:0059[facility]annCHEM ONFWY8226-87-50 10:37:002.9[facility] UkurbgfYJIAOXZLEM2596-26-55 10:37:006.8 [facility] BwbrpxgIXHUNOUZRT1652-61-85 10:37:004.47[facility]annHEMATOLOGY 2020-08-29 10:37:0010.6[facility] BrblbujGMVZODUOCA9970-42-58 10:37:0034.0[facility] NrzzxihHIMPFYUPQK7111-60-23 10:37:0076.1[facility] EmocskwYLSDMTHCLN5053-80-51 10:37:00 Test Item Value Reference Range Interpretation Comments MCH (test code = MCH) 23.8 pg 27.0-31.0 [facility] DiimgurRYMDGWXWWI9643-19-61 10:37:0031.3[facility] HermannHEMATOLOGY 2020-08-29 10:37:0018.2[facility] WtauymvDSRMVPBZNB5606-09-64 10:37:78941Ddrahbnm PmsrkdmJSDINGDQFE6478-92-58 10:37:007.5[facility] KhlykpwKTRDORJKPG0090-33-28 10:37:00 Test Item Value Reference Range Interpretation Comments PT (test code = PT) 12.8 s 12.0-14.7 [facility] QwocuheEPEYVBPZES5011-44-46 10:37:00 Test Item Value Reference Range Interpretation Comments INR (test code = INR) 0.97 1 0.85-1.17 [facility] IhwnpfaMTSROTDSPZ2531-18-59 10:37:00 Test Item Value Reference Range Interpretation Comments PTT (test code = PTT) 25.0 s 22.9-35.8 [facility] ScafhidWZOAWNCNVK4544-13-20 10:37:0070.5[facility] HermannHEMATOLOGY 2020-08-29 10:37:0018.8[facility] XxphiymLQUOIXVVAA0386-61-07 10:37:009.5[facility] NinnbcfXJKWUAYFIS8419-27-43 10:37:000.9[facility] WbufjhoEIVKEXLFOF2985-91-61 10:37:000.3[facility] NpkqdraZGHDLPQAFQ6886-22-30 10:37:004.8[facility] WKEGEPYHVO0758-95-78 10:37:001.3[facility] YcswzizSJPBSWUPLP9579-20-62 10:37:000.6 [facility] InemwtlCZYIRIGXZI4004-58-48 10:37:000.1[facility] HermannHEMATOLOGY 2020-08-29 10:37:001+ *ABN*(08/29/20 5:37 AM)[facility] SmyoimzZSGITIVPSD3546-59-49 10:37:00Not Detected (08/29/20 5:37 AM)[facility] HermannCHLAMYDIA, GC, TV,PCR, IN EDTXY2305-66-09 15:38:00 Test Item Value Reference Range Interpretation Comments FT (test code = CHTR) Not detected (qualifier Not Detected N value) FT (test code = Not detected (qualifier Not Detected N NGONO) value) FT (test code = TRVG) Not detected (qualifier Not Detected N value) [facility] QWWLKPRPPUX2721-16-25 10:57:00 Test Item Value Reference Range Interpretation Comments Color (test code = UCOLR) Dk. Yellow Clarity (test code = UCLAR) Hazy Glucose (test code = UGLUC) NEGATIVE NEGATIVE N Bilirubin (test code = UBILI) NEGATIVE NEGATIVE N Ketones (test code = UKET) NEGATIVE NEGATIVE N Specific [place] (test code = 1.025 1.005-1.030 A USPGR) [...] = None Seen None Seen N URCRYS) [facility]"
[2022-04-25 03:47] LABS: Absolute Lymphocytes (CBC) 0.8 K/uL (0.7-4.9); Hematocrit 32.8 % (36.0-45.0); Lymphocytes % 12.5 % (15.3-44.8); MCV 92.6 fL (80-100); MPV 7.4 fL (7.6-11.3); RBC Red Blood Cell Count 3.54 M/uL (3.86-4.86)
[2022-04-25 04:04] LABS: Albumin 3.2 g/dL (3.4-5.0); Bilirubin Direct 0.2 mg/dL (0-0.2); Bilirubin Total 0.5 mg/dL (0.2-1.0); Potassium 3.3 mmol/L (3.5-5.1)
[2022-04-25 04:16] LABS: Troponin High Sensitivity 18.3 pg/mL (<58.9)
--- NOTE | 2022-04-25 04:23 | ER ---
Nurse's Notes [facility] Name: Marjan Kolb Age: 67 yrs Sex: Female : 1955 Arrival Date: 04/25/2022 Time: 01:43 Bed 14 Private MD: Diagnosis: Heart failure, unspecified;Shortness of breath;Hypertensive urgency;Anemia, unspecified Presentation: 04/25 01:53 Chief complaint: Patient states: "I know my oxygen is good, but I just feel like I tw5 cannot breath!.". Coronavirus screen: Vaccine status: Patient reports receiving the 2nd dose of the covid vaccine. [employer]. Ebola Screen: Patient negative for fever greater than or equal to 101.5 degrees Fahrenheit, and additional compatible Ebola Virus Disease symptoms Patient denies exposure to infectious person. Patient denies travel to an Ebola-affected area in the 21 days before illness onset. Initial Sepsis Screen: Does the patient meet any 2 criteria? No. Patient's initial sepsis screen is negative. Does the patient have a suspected source of infection? No. Patient's initial sepsis screen is negative. Risk Assessment: Do you want to hurt yourself or someone else? Patient reports no desire to harm self or others. Onset of symptoms was April 24, 2022 at 23:30. 01:53 Method Of Arrival: Wheelchair 01:53 Acuity: BLAYNE 3 tw5 Triage Assessment: 01:54 General: Appears uncomfortable, Behavior is anxious. Respiratory: Reports shortness of tw5 breath at rest Onset: The symptoms/episode began/occurred yesterday, the patient has moderate shortness of breath. Historical: - Allergies: 01:54 Bactrim DS; 01:54 butorphanol tartrate; 01:54 Fentanyl; 01:54 Reglan; 01:54 Stadol; 01:54 sulfamethoxazole (bulk); 01:54 TRIMETHOPRIM; tw - PMHx: 01:54 Anxiety; Atrial Fib; Bipolar disorder; Chronic pain; COPD; esophageal varices; tw Hepatitis; HIV; Hypertension; Migraines; Panic Attacks; - PSHx: 01:54 Bilateral shoulder repair; Appendectomy; Cholecystectomy; hernia repair; R wrist SX; tw - Immunization history:: Flu vaccine is not up to date. - Social history:: Smoking status: Patient/guardian denies using tobacco, the patient reports quitting approximately 3 years ago. Screenin:59 Abuse screen: Denies threats or abuse. Nutritional screening: No deficits noted. ke1 Tuberculosis screening: No symptoms or risk factors identified. Fall Risk Fall in past 12 months (25 points). No secondary diagnosis (0 pts). IV access (20 points). Ambulatory Aid- None/Bed Rest/Nurse Assist (0 pts). Gait- Normal/Bed Rest/Wheelchair (0 pts) Mental Status- Oriented to own ability (0 pts). Total Hauser Fall Scale indicates High Risk Score (45 or more points). Fall prevention measures have been instituted. Side Rails Up X 2 Placed Close to Nursing Station Frequent Obs/Assessments Occuring. Assessment: 03:59 Pain: Denies pain. Cardiovascular: Rhythm is atrial fibrillation. Respiratory: Airway ke1 is patent Respiratory effort is even, unlabored, Breath sounds are clear bilaterally. Vital Signs: 01:53 BP 202 / 116; Pulse 74; Resp 18; Temp 98.2; Pulse Ox 100% ; Weight 78.93 kg; Height 5 tw5 ft. 4 in. (162.56 cm); 04:16 BP 187 / 117; Pulse 75; Resp 15; Temp 98.2; Pulse Ox 98% ; Pain 7/10; ke1 05:46 BP 163 / 116; Pulse 75; Resp 17; Temp 98(O); Pulse Ox 99% on 2 lpm NC; ke1 06:08 BP 171 / 91; Pulse 73; Resp 17; ke1 01:53 Body Mass Index 29.87 (78.93 kg, 162.56 cm) tw5 ED Course: 01:43 Patient arrived in ED. ja2 01:44 Jose Shah DO is Attending Physician. ms3 01:46 Eli Bran, ASHLEY is Primary Nurse. ke1 01:54 Triage completed. tw5 01:54 Arm band placed on. tw5 02:08 XRAY Chest (1 view) In Process Unspecified. EDMS 03:57 Inserted saline lock: 24 gauge in left forearm, using aseptic technique. Blood oe collected. 04:00 Bed in low position. Call light in reach. ke1 04:02 Assisted to bathroom. tw5 04:22 Liz Qureshi MD is Hospitalizing Provider. ms3 05:11 SARS RAPID Sent. ke1 05:11 COVID-19/FLU A+B Sent. ke1 07:34 No provider procedures requiring assistance completed. Patient admitted, IV remains in db place. Administered Medications: 05:25 Drug: Lasix (furosemide) 20 mg Route: IVP; Site: left forearm; ke1 07:35 Follow up: Response: No adverse reaction db 05:25 Drug: hydrALAZINE 10 mg Route: IVP; Site: left forearm; ke1 07:35 Follow up: Response: No adverse reaction db 05:25 Drug: Tylenol 1000 mg Route: PO; ke1 07:35 Follow up: Response: No adverse reaction db 05:25 Drug: Potassium Effervescent Tablet 50 mEq Route: PO; ke1 07:34 Follow up: Response: No adverse reaction db 07:34 Follow up: Response: No adverse reaction db Medication: 07:34 VIS not applicable for this client. db Outcome: 04:22 Decision to Hospitalize by Provider. ms3 07:34 Admitted to db 07:34 Condition: stable 07:34 Instructed on the need for admit. 13:57 Patient left the ED. iw Signatures: Dispatcher [employer] EDMS Jacquelin Meier, RN RN iw Burton Malhotra Marcus, DO DO ms3 Sharee Darnell Tiffany tw5 Eli Bran RN RN ke1 Alejandrina Fairchild RN RN db
--- NOTE | 2022-04-25 04:23 | EDPHYS ---
Physician Documentation [facility] Name: Marjan Kolb Age: 67 yrs Sex: Female : 1955 Arrival Date: 04/25/2022 Time: 01:43 Bed 14 Private MD: ED Physician Jose Shah HPI: 04/25 02:28 This 67 yrs old Female presents to ER via Wheelchair with complaints of Vomiting. ms3 02:29 The patient presents to the emergency department with nausea, that is moderate, ms3 vomiting, that is intermittent. Onset: The symptoms/episode began/occurred yesterday. Possible causes: unknown. The symptoms are aggravated by nothing. The symptoms are alleviated by nothing. Associated signs and symptoms: Pertinent negatives: abdominal pain, diarrhea. Severity of symptoms: At their worst the symptoms were moderate in the emergency department the symptoms are unchanged. Historical: - Allergies: 01:54 Bactrim DS; tw 01:54 butorphanol tartrate; tw 01:54 Fentanyl; tw 01:54 Reglan; tw 01:54 Stadol; tw 01:54 sulfamethoxazole (bulk); tw 01:54 TRIMETHOPRIM; tw5 - PMHx: 01:54 Anxiety; Atrial Fib; Bipolar disorder; Chronic pain; COPD; esophageal varices; tw5 Hepatitis; HIV; Hypertension; Migraines; Panic Attacks; - PSHx: 01:54 Bilateral shoulder repair; Appendectomy; Cholecystectomy; hernia repair; R wrist SX; tw5 - Immunization history:: Flu vaccine is not up to date. - Social history:: Smoking status: Patient/guardian denies using tobacco, the patient reports quitting approximately 3 years ago. ROS: 02:29 Constitutional: Negative for fever, and chills. Neck: Negative for injury, pain, and ms3 swelling, Cardiovascular: Negative for chest pain, and palpitations. Respiratory: Negative for shortness of breath, cough, wheezing, and pleuritic chest pain. 02:29 MS/Extremity: Negative for injury and deformity, Skin: Negative for injury, rash, and discoloration. 02:29 Abdomen/GI: Positive for nausea and vomiting. 02:29 All other systems are negative. Exam: 02:29 Constitutional: This is a well developed, well nourished patient who is awake, alert, ms3 and in no acute distress. Head/Face: Normocephalic, atraumatic. Neck: Trachea midline, no cervical lymphadenopathy. Supple, full range of motion without nuchal rigidity, or vertebral point tenderness. No Meningismus. Chest/axilla: Normal chest wall appearance and motion. Nontender with no deformity. Cardiovascular: Regular rate and rhythm with a normal S1 and S2. No gallops, murmurs, or rubs. Normal PMI, no JVD. No pulse deficits. Respiratory: Lungs have equal breath sounds bilaterally, clear to auscultation and percussion. No rales, rhonchi or wheezes noted. No increased work of breathing, no retractions or nasal flaring. Abdomen/GI: Soft, non-tender, with normal bowel sounds. No distension or tympany. No guarding or rebound. No evidence of tenderness throughout. Skin: Warm, dry with normal turgor. Normal color with no rashes, no lesions, and no evidence of cellulitis. MS/ Extremity: Pulses equal, no cyanosis. Neurovascular intact. Full, normal range of motion. 03:17 ECG was reviewed by the Attending Physician. ms3 Vital Signs: 01:53 BP 202 / 116; Pulse 74; Resp 18; Temp 98.2; Pulse Ox 100% ; Weight 78.93 kg; Height 5 tw5 ft. 4 in. (162.56 cm); 04:16 BP 187 / 117; Pulse 75; Resp 15; Temp 98.2; Pulse Ox 98% ; Pain 7/10; ke1 05:46 BP 163 / 116; Pulse 75; Resp 17; Temp 98(O); Pulse Ox 99% on 2 lpm NC; ke1 06:08 BP 171 / 91; Pulse 73; Resp 17; ke1 01:53 Body Mass Index 29.87 (78.93 kg, 162.56 cm) tw5 MDM: 02:11 Patient medically screened. ms3 02:29 Differential diagnosis: Nonspecific abd pain, gastritis, pancreatitis, viral ms3 gastroenteritis, gastroenteritis. 04:23 Data reviewed: vital signs, nurses notes, lab test result(s), EKG, radiologic studies, ms3 plain films, and as a result, I will admit patient. Counseling: I had a detailed discussion with the patient and/or guardian regarding: the historical points, exam findings, and any diagnostic results supporting the discharge/admit diagnosis, lab results, radiology results, the need for further work-up and treatment in the hospital. ED course: Discussed case with ALEJO Ch and she accepts patient on behalf of Dr Qureshi. Discussed plan for admission with patient. Patient understands agrees with plan. All questions were answered. 04/25 01:45 Order name: Basic Metabolic Panel; Complete Time: 04:46 ms3 04/25 01:45 Order name: CBC with Diff; Complete Time: 04:17 ms3 04/25 01:45 Order name: LFT's; Complete Time: 04:46 ms3 04/25 01:45 Order name: Magnesium; Complete Time: 04:46 ms3 04/25 01:45 Order name: NT PRO-BNP; Complete Time: 04:46 ms3 04/25 01:45 Order name: Troponin HS; Complete Time: 04:46 ms3 04/25 01:45 Order name: XRAY Chest (1 view) ms3 04/25 02:12 Order name: Lipase; Complete Time: 04:17 ms3 04/25 04:26 Order name: COVID-19/FLU A+B; Complete Time: 12:31 tw5 04/25 04:50 Order name: SARS RAPID ms3 04/25 05:32 Order name: SARS-COV-2 Antigen Rapid; Complete Time: 12:31 EDMS 04/25 13:28 Order name: Basic Metabolic Panel EDMS 04/25 01:45 Order name: EKG; Complete Time: 01:45 ms3 04/25 01:45 Order name: Cardiac monitoring; Complete Time: 02:56 ms3 04/25 01:45 Order name: EKG - Nurse/Tech; Complete Time: 02:56 ms3 04/25 01:45 Order name: IV Saline Lock; Complete Time: 03:58 ms3 04/25 01:45 Order name: Labs collected and sent; Complete Time: 03:58 ms3 04/25 01:45 Order name: O2 Per Protocol; Complete Time: 02:56 ms3 04/25 01:45 Order name: O2 Sat Monitoring; Complete Time: 02:56 ms3 EC:17 Rate is 75 beats/min. Rhythm is irregularly irregular. QRS [place] is Normal. VA interval ms3 is normal. QRS interval is normal. Clinical impression: Atrial Fibrillation. Interpreted by me. Reviewed by me. Administered Medications: 05:25 Drug: Lasix (furosemide) 20 mg Route: IVP; Site: left forearm; ke1 07:35 Follow up: Response: No adverse reaction db 05:25 Drug: hydrALAZINE 10 mg Route: IVP; Site: left forearm; ke1 07:35 Follow up: Response: No adverse reaction db 05:25 Drug: Tylenol 1000 mg Route: PO; ke1 07:35 Follow up: Response: No adverse reaction db 05:25 Drug: Potassium Effervescent Tablet 50 mEq Route: PO; ke1 07:34 Follow up: Response: No adverse reaction db 07:34 Follow up: Response: No adverse reaction db Disposition Summary: 04/25/22 04:22 Hospitalization Ordered Hospitalization Status: Inpatient Admission ms3 Provider: Liz Qureshi ms3 Condition: Stable ms3 Problem: new ms3 Symptoms: are unchanged ms3 Bed/Room Type: Standard ms3 Location: [facility] ER HOLD(04/25/22 13:32) db Room Assignment: ERHOLD-(04/25/22 13:32) db Diagnosis - Heart failure, unspecified ms3 - Shortness of breath ms3 - Hypertensive urgency ms3 - Anemia, unspecified ms3 Forms: - Medication Reconciliation Form ms3 - SBAR form ms3 Signatures: Dispatcher [employer] EDMS Gracia Monzon RN Lv Pederson PA PA jmm Botello, Elizabeth eb Jose Shah DO DO ms3 Dorita Dominguez tw5 Eli Bran RN RN keAlejandrina Villarreal RN RN db Brown, Sophia PABibianaC PA-C sb4 Corrections: (The following items were deleted from the chart) 04:22 04:22 Telemetry/MedSurg (observation) ms3 ms3 04:22 04:22 ms3 ms3 05:43 04:22 Telemetry/MedSurg (Inpatient) ms3 mw 05:43 04:22 ms3 mw 12:41 05:43 [facility] ER HOLD mw eb 12:41 05:43 ERHOLD- mw eb 13:32 12:41 Telemetry/MedSurg (Inpatient) eb db 13:32 12:41 [facility] db
--- NOTE | 2022-04-25 04:34 | P.HP ---
Certification for Inpatient Patient admitted to: Inpatient With expected LOS: <2 Midnights Patient will require the following post-hospital care: None Practitioner: I am a practitioner with admitting privileges, knowledge of patient current condition, hospital course, and medical plan of care. Services: Services provided to patient in accordance with Admission requirements found in Title 42 Section 412.3 of the Code of Federal Regulations Patient History Date of Service: 04/25/22 Primary Care Provider: Lacey Reason for admission: CHF Exacerbation History of Present Illness: Patient is a 67-year-old female with history of HIV, paroxysmal A. fib, COPD on home O2, CAD, hypertension, and chronic diastolic congestive heart failure who presented emergency department with complaints of shortness of breath and nausea/vomiting. She was noted to be very hypertensive with BP 202/116. O2 satisfactory. Chest xray without acute findings. BNP elevated at 6700. Patient was given lasix and hydralazine in the ED. Per chart review, her BNP is higher than her usual and therefore ED provider wishes to admit patient for further evaluation and treatment. Allergies fentanyl Allergy (Severe, Verified 03/15/22 14:38) Hives adhesive tape Allergy (Verified 03/16/22 10:43) Rash butorphanol tartrate [From Stadol] Allergy (Verified 03/15/22 14:38) confusion metoclopramide HCl [From Reglan] Allergy (Verified 03/15/22 14:38) Shortness of breath sulfamethoxazole [From Bactrim] Allergy (Verified 03/15/22 14:38) Hives/Rash trimethoprim [From Bactrim] Allergy (Verified 03/15/22 14:38) Hives/Rash Bactrim DS Allergy (Intermediate, Uncoded 03/15/22 14:38) Nausea/Vomiting Home medications list reviewed: Yes Home Medications: Raltegravir Potassium [Isentress] 1 tab PO BID 02/28/12 Sertraline [Zoloft*] 2 tab PO BID 09/15/12 Metoprolol Tartrate 100 mg PO BID #60 tablet 02/03/20 Emtricitabine/Tenofov Alafenam [Descovy 200-25 mg Tablet] 1 tab PO DAILY 03/05/21 Amlodipine Besylate 1 tab PO DAILY 03/30/21 Dexlansoprazole [Dexilant] 60 mg PO DAILY 03/30/21 Bupropion HCl [Wellbutrin Xl] 1 tab PO DAILY 10/16/21 Clopidogrel Bisulfate [Plavix*] 1 tab PO DAILY 10/16/21 Trazodone [Desyrel*] 1 tab PO BEDTIME 10/16/21 Spironolactone [Aldactone*] 25 mg PO DAILY #30 tab 02/04/22 Hydromorphone [Dilaudid] 2 mg PO DAILY 03/15/22 Triamterene 50 mg PO DAILY 03/15/22 - Past Medical/Surgical History Diabetic: No -: HIV- viral load currently undectable -: CAD -: Bipolar disorder -: Hypertension -: COPD on home O2 @ 2L -: Tobacco abuse -: former Alcohol abuse -: Anemia of chronic disease -: Hyperlipidemia -: GERD with hiatal hernia -: Atrial fibrillation-paroxysmal -: Chronic diastolic CHF -: Appendectomy -: Cholecystectomy -: left and right shoulder rotator cuff repair -: Right foot repair -: Right shoulder replacement -: right wrist -: hiatal hernia repair february 2021 -: right wrist Psychosocial/ Personal History: She lives at home. She is newly . - Family History Father -: Heart disease, Hypertension, Lung disease, GI disease, Stroke, Cancer, Liver disease, Kidney disease Notes: Colon cancer Mother -: Hypertension, Lung disease, GI disease, Blood disorders, Other (see notes) Notes: Epilepsy, chronic pain, leukemia - Social History Smoking Status: Former smoker Alcohol use: No CD- Drugs: No Caffeine use: Yes Place of Residence: Home Review of Systems Respiratory: Shortness of Breath Gastrointestinal: Nausea, Vomiting Physical Examination - Vital Signs Temperature: 98.2 F Blood Pressure: 187/117 Pulse: 75 Respirations: 15 Pulse Ox (%): 98 - Physical Exam General: Alert, In no apparent distress HEENT: Atraumatic, PERRLA, EOMI, Sclerae nonicteric Neck: Supple, 2+ carotid pulse no bruit, No LAD, Without JVD or thyroid abnormality Respiratory: Clear to auscultation bilaterally, Normal air movement Cardiovascular: Regular rate/rhythm, Normal S1 S2 Gastrointestinal: Normal bowel sounds, No tenderness Musculoskeletal: No tenderness Integumentary: No rashes Neurological: Normal speech, Normal strength at 5/5 x4 extr, Normal tone, Normal affect - Studies Laboratory Data (last 24 hrs) 04/25/22 03:35: Lipase 114 12/04/22 03:35: WBC 6.70, Hgb 11.0 L, Hct 32.8 L, Plt Count 62 L 04/25/22 03:35: Sodium 141, Potassium 3.3 L, BUN 20 H, Creatinine 1.02, Glucose 129 H, Magnesium 2.0, Total Bilirubin 0.5, AST 35, ALT 32, Alkaline Phosphatase 82 Assessment and Plan - Problems (Diagnosis) (1) CHF exacerbation Current Visit: Yes Status: Acute Qualifiers: Heart failure type: diastolic Qualified Code(s): I50.33 - Acute on chronic diastolic (congestive) heart failure (2) Coronary artery disease Current Visit: Yes Status: Chronic Qualifiers: Coronary Disease-Associated Artery/Lesion type: [place] artery [place] vs. transplanted heart: [place] heart Associated angina: without angina Qualified Code(s): I25.10 - Atherosclerotic heart disease of [place] coronary artery without angina pectoris (3) Atrial fibrillation Current Visit: Yes Status: Chronic Qualifiers: Atrial fibrillation type: paroxysmal Qualified Code(s): I48.0 - Paroxysmal atrial fibrillation (4) COPD (chronic obstructive pulmonary disease) Current Visit: Yes Status: Chronic Qualifiers: COPD type: unspecified COPD Qualified Code(s): J44.9 - Chronic obstructive pulmonary disease, unspecified (5) HIV (human immunodeficiency virus infection) Current Visit: Yes Status: Chronic Qualifiers: HIV symptom status: asymptomatic, with no history of HIV-related illness Qualified Code(s): Z21 - Asymptomatic human immunodeficiency virus [HIV] infection status (6) Hypertension Current Visit: No Status: Chronic Qualifiers: Hypertension type: primary hypertension Qualified Code(s): I10 - Essential (primary) hypertension - Plan Patient is admitted for CHF exacerbation. BNP elevated at 6700, quite higher than baseline. No pitting edema. Chest xray without pulmonary edema/effusions. Received lasix in the ED. Continue to monitor intake and output. Fluid restriction. Aspirin and atorvastatin daily. Cardiology consult. Echo ordered. Patient is known to exhibit drug seeking behavior. No narcotic pain medication indicated. Monitor and replete electrolytes per protocol Reconcile and continue home medications Lovenox for VTE prophylaxis Full code. Discharge Plan: Home Plan to discharge in: Greater than 2 days - Advance Directives Does patient have a Living Will: No Does patient have a Durable POA for Healthcare: No - Code Status/Comfort Care Code Status Assessed: Yes Code Status: Full Code Physician Review: Patient Assessed, Agree with Above Assessment and Plan Critical Care: No Time Spent Managing Pts Care (In Minutes): 50
[2022-04-25] MEDS ORDERED: HYDRALAZINE HCL 20 MG/ML VIAL ONE (05:15)
[2022-04-25] MEDS ORDERED: ACETAMINOPHEN 500 MG TAB ONE (05:15)
[2022-04-25] MEDS ORDERED: FUROSEMIDE 20 MG/ 2ML VIAL ONE (05:15)
[2022-04-25] MEDS ORDERED: POTASSIUM 25 MEQ EFFERV TAB ONE (05:15)
[2022-04-25 05:31] LABS: SARS-CoV-2 Antigen Rapid Res Negative (Negative)
[2022-04-25 05:54] LABS: SARS-COV-2 RT PCR NEGATIVE (NEGATIVE)
[2022-04-25] MEDS ORDERED: ONDANSETRON 4 MG/2 ML VIAL IV PRN (05:57)
[2022-04-25] MEDS ORDERED: ALBUTEROL 2.5 MG/3 ML NEB SOL NEB PRN (05:57)
[2022-04-25] MEDS ORDERED: ACETAMINOPHEN 325 MG TABLET PO PRN (06:07)
[2022-04-25 06:19] VITALS: BMI 29.8
[2022-04-25] MEDS ORDERED: HYDROCODONE/APAP 10/325 TAB PO PRN (08:48)
[2022-04-25] MEDS ORDERED: HYDROMORPHONE ORAL 2 MG TAB PO SCH (09:00)
[2022-04-25] MEDS ORDERED: POTASSIUM CL SA 10 MEQ TAB PO ONE ×2 (09:00→09:05)
[2022-04-25] MEDS ORDERED: ASPIRIN EC 81 MG TAB PO SCH (09:00)
[2022-04-25] MEDS ORDERED: ENOXAPARIN 40 MG/0.4 ML SQ SCH (09:00)
[2022-04-25] MEDS ORDERED: HYDROMORPHONE HCL 0.5 MG/0.5 ML INJ IV ONE (09:04)
[2022-04-25] MEDS ORDERED: LORazepam 2 MG/ML VIAL IV ONE (09:04)
[2022-04-25] MEDS ORDERED: ASPIRIN EC 81 MG TAB PO ONE (09:05)
[2022-04-25] MEDS ORDERED: METOPROLOL TAR 50 MG TAB PO ONE (09:05)
[2022-04-25] MEDS ORDERED: cloNIDine HCL 0.1 MG TAB PO ONE (09:05)
[2022-04-25] MEDS ORDERED: ENOXAPARIN 40 MG/0.4 ML SQ ONE (09:06)
[2022-04-25] MEDS ORDERED: METOPROLOL TAR 50 MG TAB ONE (10:00)
[2022-04-25] MEDS ORDERED: cloNIDine HCL 0.1 MG TAB ONE (10:00)
[2022-04-25] MEDS ORDERED: LORazepam 2 MG/ML VIAL ONE (10:02)
[2022-04-25] MEDS ORDERED: HYDROMORPHONE HCL 2 MG/ML inj ONE (10:03)
[2022-04-25 10:33] VITALS: O2SAT 98
[2022-04-25] MEDS ORDERED: HYDROMORPHONE ORAL 2 MG TAB ONE (12:16)
[2022-04-25] MEDS ORDERED: AMLODIPINE 5 MG TAB PO ONE (13:03)
--- NOTE | 2022-04-25 13:14 | P.DS ---
Discharge Date: 04/25/22 Primary Care Provider: Lacey Disposition: ROUTINE DISCHARGE Discharge Condition: GOOD Reason for Admission: CHF Exacerbation Brief History of Present Illness: Patient is a 67-year-old female with history of HIV, paroxysmal A. fib, COPD on home O2, CAD, hypertension, and chronic diastolic congestive heart failure who presented emergency department with complaints of shortness of breath and nausea/vomiting. She was noted to be very hypertensive with BP 202/116. O2 satisfactory. Chest xray without acute findings. BNP elevated at 6700. Patient was given lasix and hydralazine in the ED. Per chart review, her BNP is higher than her usual and therefore ED provider wishes to admit patient for further evaluation and treatment. Hospital Course: Patient is clinically doing well. Blood pressure is improved. Electrolytes are stable. Patient needs to follow-up as an outpatient. She has had extensive cardiac work-up including cardiac catheterization as well as echocardiogram re cently. She also had an EGD recently. She is stable for discharge home. Vital Signs/Physical Exam: Temp Pulse Resp BP Pulse Ox 98 F 66 16 142/124 H 97 04/25/22 12:00 04/25/22 12:00 04/25/22 12:22 04/25/22 12:00 04/25/22 12:22 General: Alert, In no apparent distress, Oriented x3 Laboratory Data at Discharge: WBC 6.70 K/uL (4.3-10.9) 04/25/22 03:35 Hgb 11.0 g/dL (12.0-15.0) L 04/25/22 03:35 Hct 32.8 % (36.0-45.0) L 04/25/22 03:35 Plt Count 62 K/uL (152-406) L 04/25/22 03:35 Sodium 141 mmol/L (136-145) 04/25/22 03:35 Potassium 3.3 mmol/L (3.5-5.1) L 04/25/22 03:35 BUN 20 mg/dL (7-18) H 04/25/22 03:35 Creatinine 1.02 mg/dL (0.55-1.3) 04/25/22 03:35 Glucose 129 mg/dL (74-106) H 04/25/22 03:35 Magnesium 2.0 mg/dL (1.8-2.4) 04/25/22 03:35 Total Bilirubin 0.5 mg/dL (0.2-1.0) 04/25/22 03:35 AST 35 U/L (15-37) 04/25/22 03:35 ALT 32 U/L (12-78) 04/25/22 03:35 Alkaline Phosphatase 82 U/L (45-117) 04/25/22 03:35 Lipase 114 U/L (73-393) 04/25/22 03:35 Home Medications: Raltegravir Potassium [Isentress] 1 tab PO BID 02/28/12 Sertraline [Zoloft*] 2 tab PO BID 09/15/12 Metoprolol Tartrate 100 mg PO BID #60 tablet 02/03/20 Emtricitabine/Tenofov Alafenam [Descovy 200-25 mg Tablet] 1 tab PO DAILY 03/05/21 Amlodipine Besylate 1 tab PO DAILY 03/30/21 Dexlansoprazole [Dexilant] 60 mg PO DAILY 03/30/21 Bupropion HCl [Wellbutrin Xl] 1 tab PO DAILY 10/16/21 Clopidogrel Bisulfate [Plavix*] 1 tab PO DAILY 10/16/21 Trazodone [Desyrel*] 1 tab PO BEDTIME 10/16/21 Spironolactone [Aldactone*] 25 mg PO DAILY #30 tab 02/04/22 Hydromorphone [Dilaudid] 2 mg PO DAILY 03/15/22 Triamterene 50 mg PO DAILY 03/15/22 Losartan Potassium [Cozaar*] 50 mg PO BID #60 tablet 04/25/22 New Medications: Losartan Potassium [Cozaar*] 50 mg PO BID #60 tablet Physician Discharge Instructions: -DC IV and DC home -Follow-up with PCP in 1 to 2 weeks -Follow-up with Cardiology, for blood pressure control, in 1 to 2 weeks -Please call Dr. Qureshi at [phone] if any questions regarding hospital stay -Please call nursing station at [phone] if any nursing or medication qu estions -Return to the emergency room if symptoms worsen Diet: AHA Activity: Fall precautions Followup: Lacey VARELA,Lele Peterson DO [Primary Care Provider] -
[2022-04-25 13:28] LABS: Potassium 3.6 mmol/L (3.5-5.1)
[2022-04-25 14:00] VITALS: BP 140/78; TEMP 98
[2022-04-25] MEDS ORDERED: ATORVASTATIN 40 MG TAB PO SCH (21:00)
--- NOTE | 2022-04-26 13:33 | RAD REPORT ---
EXAM DESCRIPTION: RAD - Chest Single View - 04/25/2022 2:06 am CLINICAL HISTORY: DYSPNEA TECHNIQUE: Frontal view of the chest. COMPARISON: XR Chest dated 04/18/2022 FINDINGS: Lungs: Coarsened interstitial markings. No focal consolidation. Pleural space: Unremarkable. No pneumothorax. Heart: Cardiac silhouette is enlarged, stable. Mediastinum: Unremarkable. Bones/joints: Bilateral shoulder arthroplasty hardware. Vasculature: Thoracic aortic atherosclerosis. IMPRESSION: No acute disease. Electronically signed by: Earl Hernandez MD 04/25/2022 2:37 AM ARCHITECTURE PROFESSOR Due to temporary technical issues with the PACS/Fluency reporting system, reports are being signed by the in house radiologists without review as a courtesy to insure prompt reporting. The interpreting radiologist is fully responsible for the content of the report.
--- NOTE | 2022-04-26 13:48 | EKG ---
Test Date: 2022-04-25 Test Time: 03:16:49 Pattern Fitter: TRENT MEASUREMENT RESULTS: Intervals: Rate: 67 WA: 208 QRSD: 84 QT: 460 QTc: 486 [place]: P: 29 WA: 208 QRS: 28 T: 40 INTERPRETIVE STATEMENTS: Sinus rhythm with premature supraventricular complexes Nonspecific ST abnormality Abnormal ECG Compared to ECG 04/25/2022 02:40:06 No significant changes Electronically Signed On 04-26-22 13:46:37 LOGISTICS INTERN by Mike Lund
--- NOTE | 2022-04-26 13:48 | EKG ---
Test Date: 2022-04-25 Test Time: 03:18:57 Gastroenterology Nurse Practitioner: TRENT MEASUREMENT RESULTS: Intervals: Rate: 68 HI: QRSD: 86 QT: 450 QTc: 478 [place]: P: HI: QRS: 13 T: 22 INTERPRETIVE STATEMENTS: Atrial fibrillation Nonspecific ST and T wave abnormality, probably digitalis effect Prolonged QT Abnormal ECG Compared to ECG 04/25/2022 03:16:49 Prolonged QT interval now present Sinus rhythm no longer present Atrial premature complex(es) no longer present ST (T wave) deviation still present Electronically Signed On 04-26-22 13:46:35 MICROBIOLOGY SOIL SCIENTIST by Mike Lund
--- NOTE | 2022-04-26 13:49 | EKG ---
Test Date: 2022-04-25 Test Time: 02:40:06 Gasket Maker: TRENT MEASUREMENT RESULTS: Intervals: Rate: 72 MI: 178 QRSD: 82 QT: 422 QTc: 462 [place]: P: 7 MI: 178 QRS: 38 T: 182 INTERPRETIVE STATEMENTS: Sinus rhythm with premature supraventricular complexes Marked ST abnormality, possible lateral subendocardial injury Abnormal ECG Compared to ECG 04/18/2022 23:06:59 Atrial premature complex(es) now present Sinus arrhythmia no longer present Left ventricular hypertrophy no longer present Prolonged QT interval no longer present ST (T wave) deviation still present Electronically Signed On 04-26-22 13:46:56 PROFESSOR OF LAW by Mike Lund
== END 2022-04-25 14:00 | disposition home or self-care (01) ==
LOC: ER 01:41 → ERHOLD 04:25 → INTOOBSV 04:25
PROVIDERS: ADMIT Hospitalist; ATTEND Hospitalist
DX: I50.33 Acute on chronic diastolic (congestive) heart failure (principal); I25.10 Atherosclerotic heart disease of native coronary artery without angina pectoris; I48.0 Paroxysmal atrial fibrillation; J44.9 Chronic obstructive pulmonary disease, unspecified; Z21 Asymptomatic human immunodeficiency virus [HIV] infection status; Z99.81 Dependence on supplemental oxygen; I10 Essential (primary) hypertension; Z20.822 Contact with and (suspected) exposure to COVID-19; Z88.1 Allergy status to other antibiotic agents; Z88.8 Allergy status to other drugs, medicaments and biological substances; D64.9 Anemia, unspecified
CPT/HCPCS: 93005 ×3; 85025; 80048 ×2; 36415; 83735; 80076; 84484; 83690; 83880; 0240U; 71045; 94760; 96375; 96374; 99285; 87811; J0360; J1940; J1650; J1170

== ENCOUNTER 2022-04-30 01:05 | Inpatient (IN) | payer OTHER ==
--- OUTSIDE RECORDS SUMMARY | 2022-04-30 01:22 | XMS REPORT | Continuity of Care Document ---
:1955 Author Organization [facility] t Address [address] [place] [address] Care Team Providers Name Role Phone Urmila Rahman Primary Care Physician ELAN LIRA Attending Clinician Unavailable BEVERLY LAYTON Attending Clinician Unavailable SANTIAGO CARDENAS Attending Clinician Unavailable PAULETTE GRAY S Attending Clinician Unavailable Paulette Galvan S Attending Clinician UNKNOWN, ATTENDING Attending Clinician Unavailable Robbi Bal Attending Clinician Santiago Sanchez Attending Clinician [facility] Attending Clinician Unavailable Isaias Whiteside RN Attending Clinician Unavailable TOMY MARIE Attending Clinician Unavailable Reilly Means MD Attending Clinician Ofe Shields MD Attending Clinician Tomy Marie MD Attending Clinician Doctor Unassigned, [place] Attending Clinician Unavailable Bill COLES Attending Clinician Unavailable Bill Rose Attending Clinician CHARITY MCALLISTER Attending Clinician Unavailable Charity Mcallister MD Attending Clinician GADIEL KOEHLER Attending Clinician Unavailable Mike Lund Attending Clinician Unavailable NIKOLAI REEVES Attending Clinician Unavailable Eliseo Arce MD Attending Clinician Carol Ann IZQUIERDO, Sarai Lieberman Attending Clinician [phone] Ashly Pelletier MA Attending Clinician Unavailable Dagoberto Bass MD Attending Clinician [place] Evangelista Attending Clinician Lab, [facility] Pob I Attending Clinician Unavailable Monica Rodas MA Attending Clinician Unavailable Agustina Ortiz MA Attending Clinician Unavailable Rody Maguire RN Attending Clinician Unavailable Kirit Flood MD, V. Attending Clinician [place] Attending Clinician Unavailable Gloria Hinojosa Attending Clinician Michael Hagen RN Attending Clinician Unavailable Team, [facility] Attending Clinician UnavailDO PORSHA Newell Attending Clinician Unavailable Gadiel Koehler MD Attending Clinician Tyrone JENKINS, Eveline Sierra Attending Clinician Stanislav RAMIREZ, Eladio Inman Attending Clinician Unavailable Leyda Willis Attending Clinician [phone] Selvin RAMIREZ, Stefanie Attending Clinician Unavailable TOMY MARIE Admitting Clinician Unavailable Frank JENKINS, Tomy Admitting Clinician Bill COLES Admitting Clinician Unavailable RahmanLele bird Kristen Admitting Clinician Unavailable Mike Lund Admitting Clinician Unavailable ELISEO ARCE Admitting Clinician Unavailable DO PORSHA STREETER Admitting Clinician Unavailable Payers Payer Name Policy Type Policy Number Effective Date Expiration Date S gabino [facility] COMMUNITY PLAN [id number] 2012 STAR PLUS OON 00:00:00 [facility] [id number] 2019 DUAL COMPLETE HMO 00:00:00 [facility] [id number] 2019 PLUS 00:00:00 MEDICAID [facility] [id number] 2020 00:00:00 [facility] [id number] 2019 HEALTH [facility] ALICE 00:00:00 [employer] MEDICARE ADV [id number] 2019 2019 00:00:00 00:00:00 Problems Condition Condition Condition Status Onset Resolution Last Treating Co mments Source Name Details Category Date Date Treatment Clinician Date Dyspnea, Dyspnea, Disease Active Unive rs unspecifie unspecifie 02-11 it y of d type d type 00:00: [place] [address] Medical Branch Gastropare Gastropare Disease Active Overview : Methodi sis sis 4-[address] 00:00: [facility] 00 note l might be different from the original. Added automatic ally from request for surgery [id number] Dysphagia Dysphagia Disease Active Overview: Methodi 4-[address] 00:00: g of this [facility] 00 note l might be different from the original. 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:00: [place] shoulder shoulder 00 Medica l arthroplas arthroplas Br anch ty ty Posttrauma Posttrauma Disease Active U nivers tic stress tic stress 08 it y of disorder disorder 00:00: [place] [facility] 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 00:00: [place] virus virus Medical (HIV) (HIV) Branch disease disease Bipolar 2 Bipolar 2 Disease Active Uni vers disorder disorder 11-18 ity of 00:00: [place] [facility] Chronic Chronic Disease Active Univers hepatitis hepatitis 11-18 ity of C C 00:00: [place] [facility] Hypertensi Hypertensi Disease Active U nivers on on 11-18 ity of 00:00: [place] [facility] Allergies, Adverse Reactions, Alerts Allergy Allergy Status Severity Reaction(s) Onset Inactive Treating Comm ents Source Name Type Date Date Clinician sulfamet DA Active SV N/V [facility] hoxazole 1-25 Clear 00:00: [address] trimetho DA Active SV [facility] [...] father Diabetes [facility] Natural father Other - see comments [facility] Natural father [facility] [place] [facility] [place] [facility] Hy[facility] Natural mother Yazdanism [facility] Social History Social Habit Start Date Stop Date Quantity Comments Source History SDOH Yazdanism Alcohol Frequency Hospita l History SDOH Yazdanism Alcohol Std Drinks Hospit al History SDOH Yazdanism Alcohol B[facility] Hospital Tobacco use and 2022-02-11 2022-02-11 Former smokeless Uni versity of exposure 00:00:00 00:00:00 tobacco user [facility] Tobacco Comment 2022-02-11 2022-02-11 Smokes approx 1-2 Un iversity of 00:00:00 00:00:00 cigarettes per [facility] day when she Branch smokes Exposure to 2022-01-31 2022-02-10 Not sure University of SARS-CoV-2 (event) 00:00:00 22:53:00 [facility] Alcohol intake 2020-12-08 2020-12-08 Current drinker [facility] 00:00:00 00:00:00 of alcohol Hospital (finding) Cigarettes smoked 2020-09-05 2020-09-[address] current (pack [facility]:00[facility] - [facility]orted Cigarette 2020-09-05 2020-09-05 Yazdanism pack-years 00:00:00 00:00:00 Hospital Alcohol Comment 2016-09-23 2016-09-23 rare Yazdanism 00:00:00 00:00:00 Hospital History of tobacco 2011-09-29 User of smokeless University of use 00:00:00 tobacco [facility] Sex Ass[birth year] At [birth year] [facility] 00:00:00 00:00:00 Smoking Status Start Date Stop Date Source Ex-smoker 2022-02-11 00:00:00 2022-02-11 00:00:00 Universi ty of [facility] Medications Ordered Filled Start Stop Current Ordering Indication Dosage Frequency Signature Comments Components Source Medication Medication Date Date Medication? Clinician (SIG) Name Name ondansetron 2021-05 4mg 4 mg, Univ ers (ZOFRAN-ODT 06-23 Oral, ity of ) 22:45: 21:53 ONCE, 1 [place] disintegrat 00 :00 dose, On Medi porfirio ing tablet [place] 4 mg 04/22/22 at 1645, Routine amoxicillin 2021-05 Yes [id number] 1{tbl} Take 1 Univers -clavulanat 2- [id number] tablet by i ty of e 875-125 00:00: mouth [place] mg per 00 every 12 Medical tablet (twelve) Branch hours. ondansetron 2021-05 Yes [id number] 4mg Take 1 Univers 4 mg 06-23 [id number] tablet by ity of disintegrat 00:00: mouth [place] ing tablet 00 every 8 Medica l (eight) Branch hours as needed for Nausea and Vomiting (N/V). zoster 2021-05- Yes [id number] .5mL 0.5 mL by Univers vaccine, 0-05 03- 9104 Intramuscu ity of recombinant 00:00: 04:59 lar route [place] (SHINGRIX, 00 :00 once now Medic al PF,) for 1 Branch injection dose. And repeat in 2-6 months zoster 2021-05- No [id number] .5mL 0.5 mL by Univers vaccine, 0-05 03- 9104 Intramuscu ity of recombinant 00:00: 04:59 lar route [place] (SHINGRIX, 00 :00 once now Medic al PF,) for 1 Branch injection dose. And repeat in 2-6 months zoster 2021-05- No [id number] .5mL 0.5 mL by Univers vaccine, 0-05 03- 9104 Intramuscu ity of recombinant 00:00: 04:59 lar route [place] (SHINGRIX, 00 :00 once now Medic al PF,) for 1 Branch injection dose. And repeat in 2-6 months hydralAZINE Yes 25mg Take 25 mg Univers (APRESOLINE -27 by mouth ity of ) 25 mg 19:28: daily. [place] tablet 04 Medical Branch lisinopril Yes 40mg Take 40 mg U nivers (PRINIVIL,Z - by mouth 2 it y of ESTRIL) [...] o f 1 mg tablet 19:28: at [place] [address] bedtime. Medical Branch traZODone 2021-0 Yes 50mg Take 50 mg Un matt 100 mg 9-27 by mouth ity of tablet 19:28: at [place] [address] bedtime. Medical Branch hydralAZINE 2021-0 Yes 25mg [...] o f 1 mg tablet 19:28: at [place] [address] bedtime. Medical Branch traZODone 2021-0 Yes 50mg Take 50 mg Un matt 100 mg 9-27 by mouth ity of tablet 19:28: at [place] [address] bedtime. Medical Branch hydralAZINE 2021-0 Yes 25mg [...] o f 1 mg tablet 19:28: at [place] [address] bedtime. Medical Branch traZODone 2021-0 Yes 50mg Take 50 mg Un matt 100 mg 9-27 by mouth ity of tablet 19:28: at [place] [address] bedtime. Medical Branch hydralAZINE 2021-0 Yes 25mg [...] o f 1 mg tablet 19:28: at [place] [address] bedtime. Medical Branch traZODone 2021-0 Yes 50mg Take 50 mg Un matt 100 mg 9- by mouth ity of tablet 19:28: at [place] [address] bedtime. Medical Branch hydralAZINE 2021-0 Yes 25mg [...] o f 1 mg tablet 19:28: at [place] [address] bedtime. Medical Branch traZODone 2021-0 Yes 50mg Take 50 mg Un matt 100 mg 9-27 by mouth ity of tablet 19:28: at [place] [address] bedtime. Medical Branch hydralAZINE 2021-0 Yes 25mg [...] 100 mg 04 (two) Medical tablet times [place] daily. amLODIPine 2021-0 Yes 10mg Take 10 mg U nivers (NORVASC) 9-27 by mouth ity of 10 mg 19:28: daily. [place] tablet 04 Medical Branch clonazePAM 2021-0 Yes 1mg Take 1 mg Un matt (KLONOPIN) 9-27 by mouth ity o f 1 mg tablet 19:28: at [place] [address] bedtime. Medical Branch traZODone 2021-0 Yes 50mg Take 50 mg Un matt 100 mg 9-27 by mouth ity of tablet 19:28: at [place] [address] bedtime. Medical Branch hydralAZINE 2021-0 Yes 25mg [...] o f 1 mg tablet 19:28: at [place] [address] bedtime. Medical Branch traZODone 2021-0 Yes 50mg Take 50 mg Un matt 100 mg 9-27 by mouth ity of tablet 19:28: at [place] [address] bedtime. Medical Branch hydralAZINE 2021-0 Yes 25mg [...] o f 1 mg tablet 19:28: at [place] [address] bedtime. Medical Branch traZODone 2021-0 Yes 50mg Take 50 mg Un matt 100 mg 9-27 by mouth ity of tablet 19:28: at [place] [address] bedtime. Medical Branch hydralAZINE 2021-0 Yes 25mg [...] 100 mg 04 (two) Medical tablet times [place] daily. amLODIPine Yes 10mg Take 10 mg U nivers (NORVASC) 9- by mouth ity of 10 mg 19:28: daily. [place] tablet 04 Medical Branch clonazePAM Yes 1mg Take 1 mg Un matt (KLONOPIN) 02-16 by mouth ity o f 1 mg tablet 19:28: at [place] [address] bedtime. Medical Branch traZODone Yes 50mg Take 50 mg Un matt 100 mg 02-16 by mouth ity of tablet 19:28: at [place] [address] bedtime. Medical Branch cefpodoxime 2021- Yes [id number] 200mg Take 1 Univers 200 mg 02-16 tablet by ity of tablet 00:00: 04:59 mouth in [place] 00 :00 the Medical morning Branch and 1 tablet in the evening. Do all this for 3 days. cefpodoxime 2021- Yes [id number] 200mg Take 1 Univers 200 mg -18 03- tablet by ity of tablet 00:00: 04:59 mouth in [place] 00 :00 the Medical morning Branch and [...] -25 Oral, ity of (ESIDRIX) 14:00: DAILY, [place] capsule 25 00 First dose Med ical mg on Sun Branch 02/14/22 at 0900, Until Discontinu ed, Routine butalbital- Yes 1{tbl} 1 tablet, Univers acetaminoph 9-24 Oral, ity of en-caff 18:46: Q6HPRN, [place] (ESGIC) 06 Starting Medical 50-325-40 on Sat Branch mg tablet 1 02/13/22 at tablet 1346, Until Discontinu ed, Routine, headaches dicyclomine Yes 10mg 10 mg, Univ ers (BENTYL) 02-13 Oral, QID, ity o f capsule 10 17:00: First dose [place] mg 00 on [facility] 02/13/22 at Branch 1200, Until Discontinu ed, Routine tiZANidine Yes 4mg 4 mg, Univer s (ZANAFLEX) 02-12 Oral, Q8H, ity of tablet 4 mg 19:00: First dose [place] 00 on Tue [facility] 02/12/22 at Branch 1400, Until Discontinu ed, Routine HYDROmorpho Yes 4mg 4 mg, Unive rs ne 02-12 Oral, ity of (DILAUDID) 17:37: Q6HPRN, [facility] s tablet 4 mg 07 Starting Medi porfirio on Tue [place] 02/12/22 at 1237, Until Discontinu ed, Routine, Pain (scale 4-6) morpHINE (2 2021- No 2mg 2 mg, Slow Univers mg/mL) 02-12 IV Push, ity of injection 2 17:36: 20:36 Q6HPRN, [place] mg 46 :24 Starting Medical on Tue [place] 02/12/22 at 1236, Until 02/14/22 at 1536, Routine, Pain (scale 7-10) cefTRIAXone 202- No 2000mg 2,000 mg, Univers (ROCEPHIN) 02-12 IV ity of 2,000 mg in 17:00: 18:24 Piggyback, [place] NaCl 0.9% 00 :00 Q24H ABX, Medic al (NS) 100 mL 5 doses, Bran ch MINI-BAG First dose on Tue02/12/22 at 1200, Last dose on Tue02/16/22 at 1200, Administer over 30 Minutes, 100 mL
Reas on for Anti-Infec tive: Documented Infection< br>Documen arpit Infection Site: Urine
D uration of Therapy: Other (see Comments) hydrALAZINE 2022-0 Yes 75mg 75 mg, Univ ers (APRESOLINE 02-12 Oral, BID, it y of ) tablet 75 14:15: First dose [place] mg 00 (after Medical last Branch modificati on) on Tue02/12/22 at 0915, Until Discontinu ed, Routine pantoprazol 2021-0 Yes 40mg 40 mg, Univ ers e 02-12 Oral, ity of (PROTONIX) 14:00: DAILY, [place] EC tablet 00 First dose Medi porfirio 40 mg on Tue Branch 02/12/22 at 0900, Until Discontinu ed, Routine SERTraline 2021-0 Yes 200mg 200 mg, Uni vers (ZOLOFT) [...] at 0900, Until Discontinu ed, Routine enoxaparin 0 Yes 40mg 40 mg, Unive rs (LOVENOX) 02-11 Subcutaneo ity of injection 22:00: us, DAILY [place] 40 mg 00 AT 1700, Medical First dose Branch on Tue02/11/22 at 1700, Until Discontinu ed, Routine aspirin 2021-0 202- No 325mg 325 mg, Unive rs E.C. 02-11 Oral, ity of (ECOTRIN) 21:33: 21:44 ONCE, 1 [place] tablet 325 00 :00 dose, On Medic al mg [place] 02/11/22 at 1645, Routine nitroglycer 2021-0 Yes .4mg 0.4 mg, Uni vers in 02-11 Sublingual ity of (NITROSTAT) 21:31: , Q5MIN [place] sublingual 20 PRN, Medical tablet 0.4 Starting Branc h mg on Tue02/11/22 at 1631, Until Discontinu ed, Routine, Chest pain cloNIDine 2021-0 Yes .1mg 0.1 mg, Unive rs (CATAPRES) 02-11 Oral, ity of tablet 0.1 21:18: TIDPRN, [place] mg 37 Starting Medical on [facility] Branch 02/11/22 at 1618, Until Discontinu ed, Routine, SBP > 170 nystatin-tr 2021-0 Yes Topical, Un matt iamcinolone 02-11 TID, First it y of (MYCOLOG) 19:00: dose on [place] cream 00 [facility] Medical 02/11/22 at Branch 1400, Until Discontinu ed, Routine busPIRone 2021-0 Yes 30mg 30 mg, Univer s (BUSPAR) 02-11 Oral, BID, ity o f tablet 30 18:00: First dose [place] mg 00 on [facility] Medical 02/11/22 at Branch 1300, Until Discontinu ed, Routine raltegravir 2021-0 Yes 400mg 400 mg, Un matt (ISENTRESS) 02-11 Oral, BID, it y of tablet 400 18:00: First dose [place] mg 00 on [facility] 02/11/22 at Branch 1300, Until Discontinu ed, JOE metoprolol 2021-0 Yes 100mg 100 mg, Uni vers tartrate 02-11 Oral, BID, ity o f (LOPRESSOR) 18:00: First dose [place] tablet 100 00 on [facility] Medical mg 02/11/22 at Branch 1300, Until Discontinu ed, Routine lisinopriL 2021-0 Yes 40mg 40 mg, Unive rs (PRINIVIL,Z 02-11 Oral, BID, it y of ESTRIL) 18:00: First dose [place] tablet 40 00 on [facility] Medical mg 02/11/22 at Branch 1300, Until Discontinu ed, Routine emtricitabi 2021-0 Yes 1{tbl} 1 tablet, Univers ne-tenofovi 02-11 Oral, ity of r alafen 18:00: DAILY, [place] (DESCOVY) 00 First dose Medi porfirio tablet 1 on [facility] tablet 02/11/22 at 1300, Until Discontinu ed, Routine ipratropium 2021-0 Yes .5mg 0.5 mg, Uni vers (ATROVENT) 02-11 Inhalation ity of 0.02 % 17:57: , QIDPRN, [place] nebulizer 10 Starting Medica l solution on [facility] Branch 0.5 mg 02/11/22 at 1257, Until Discontinu ed, Routine, Wheezing, Shortness of Breath amLODIPine Yes 10mg 10 mg, Unive rs (NORVASC) 02-11 Oral, ity of tablet 10 17:30: DAILY, [place] mg 00 First dose Medical (after Branch last modificati on) on [facility] 02/11/22 at 1230, Until Discontinu ed, Routine hydrALAZINE 2021- No 25mg 25 mg, Uni vers (APRESOLINE 02-11 Oral, ity of ) tablet 25 17:30: 12:54 DAILY, [place] mg 00 :55 First dose Medical (after Branch last modificati on) on [facility] 02/11/22 at 1230, Until Discontinu ed, Routine HYDROcodone 2021- No 1{tbl} 1 tablet, Univers -acetaminop 02-11 Oral, ity of hen (NORCO 14:11: 17:37 Q6HPRN, [place] 5) 5-325 mg 03 :24 Starting Medi porfirio tablet 1 on [facility] Branch tablet 02/11/22 at 0911, Until Tue02/12/22 at 1237, Routine, Pain (scale 7-10) melatonin Yes 3mg 3 mg, Univers (MELATIN) 02-11 Oral, ity of tablet 3 mg 14:08: QHSPRN, [place] 17 Starting Medical on [facility] Branch 02/11/22 at 0908, Until Discontinu ed, Routine, Insomnia acetaminoph 2021- No 1{tbl} 1 tablet, Univers en-codeine 02-11 Oral, ity of (TYLENOL 14:06: 17:37 Q6HPRN, [place] #3) 300-30 19 :24 Starting Medic al mg tablet 1 on [facility] Branch tablet 02/11/22 at 0906, Until Tue02/12/22 at 1237, Routine, Pain (scale 4-6) sennosides- Yes 1{tbl} 1 tablet, Univers docusate 02-11 Oral, ity of sodium 14:06: QDAILYPRN, [place] (SENOKOT-S) 09 Starting Medi porfirio 8.6-50 mg on [facility] per tablet 02/11/22 at 1 tablet 0906, Until Discontinu ed, Routine, Constipati on ondansetron 2021-0 Yes 4mg 4 mg, Slow Univers (ZOFRAN 02-11 IV Push, ity of (PF)) 14:05: Q6HPRN, [place] injection 4 59 Starting Medi porfirio mg on [place] 02/11/22 at 0905, Until Discontinu ed, Routine, Nausea and Vomiting (N/V) acetaminoph 2021-0 Yes 650mg 650 mg, Un matt en 02-11 Oral, ity of (TYLENOL) 14:04: Q6HPRN, [place] tablet 650 37 Starting Medic al mg [...] ity of ) 25 mg 09:10: daily. [address] amLODIPine 0 Yes 10mg Take 10 mg U nivers (NORVASC) 02-11 by mouth ity of 10 mg 09:10: daily. [address] Branch piperacilli 2021-0 202- No 3.375g 3.375 [...]
D uration of therapy: 72 hours iopamidol 2022-0 2022- No [id number] 60mL 60 mL, Univers (ISOVUE 02-11 Intravenou [...] [place] 02/11/22 at 0300, JOE ondansetron No 4mg 4 mg, Slow Univers (ZOFRAN 02-11 IV Push, ity of (PF)) 05:45: 05:08 ONCE, 1 [place] injection 4 00 :00 dose, On Medi porfirio mg [facility] Branch 02/11/22 at 0045, JOE acetaminoph 2021- No 975mg 975 mg, U nivers en 02-11 Oral, ity of (TYLENOL) 05:15: 04:19 ONCE, 1 [place] tablet 975 00 :00 dose, On Medic al mg [facility] Branch 02/11/22 at 0015, JOE emtricitabi 0 Yes [id number] Take one Univers ne-tenofovi 9-12 po daily ity of r alafen 00:00: [place] (DESCOVY) 00 Medical tablet Branch emtricitabi 0 Yes [id number] Take one Univers ne-tenofovi 9-12 po daily ity of r alafen 00:00: [place] (DESCOVY) 00 Medical tablet Branch emtricitabi 0 Yes [id number] Take one Univers ne-tenofovi 9-12 po daily ity of r alafen 00:00: [place] (DESCOVY) 00 Medical tablet Branch emtricitabi Yes [id number] Take one Univers ne-tenofovi 9-12 po daily ity of r alafen 00:00: [place] (DESCOVY) 00 Medical tablet Branch emtricitabi Yes [id number] Take one Univers ne-tenofovi 9-12 po daily ity of r alafen 00:00: [place] (DESCOVY) 00 Medical tablet Branch emtricitabi Yes [id number] Take one Univers ne-tenofovi 9-12 po daily ity of r alafen 00:00: [place] (DESCOVY) 00 Medical tablet Branch emtricitabi Yes [id number] Take one Univers ne-tenofovi 9-12 po daily ity of r alafen 00:00: [place] (DESCOVY) 00 Medical tablet Branch emtricitabi Yes [id number] Take one Univers ne-tenofovi 9-12 po daily ity of r alafen 00:00: [place] (DESCOVY) 00 Medical tablet Branch emtricitabi Yes [id number] Take one Univers ne-tenofovi 9-12 po daily ity of r alafen 00:00: [place] (DESCOVY) 00 Medical tablet Branch emtricitabi Yes [id number] Take one Univers ne-tenofovi 9-12 po daily ity of r alafen 00:00: [place] (DESCOVY) 00 Medical tablet Branch naproxen 0 Yes [id number] 500mg Take 1 U nivers (NAPROSYN) 7-24 tablet by ity of 500 mg 00:00: mouth in [place] tablet 00 the Medical morning Branch and 1 tablet in the evening. Take with meals. methocarbam Yes [id number] 500mg Take 1 Univers oL 500 mg 7-24 tablet by ity o f tablet 00:00: mouth 4 [place] 00 (four) Medical times Branch daily. naproxen Yes [id number] 500mg Take 1 U nivers (NAPROSYN) 7-24 tablet by ity of 500 mg 00:00: mouth in [place] tablet 00 the Medical morning Branch and 1 tablet in the evening. Take with meals. methocarbam 2021-0 Yes [id number] 500mg Take 1 Univers oL 500 mg 7-24 tablet by ity o f tablet 00:00: mouth 4 [place] 00 (four) Medical times Branch daily. naproxen 2021-0 Yes [id number] 500mg Take 1 U nivers (NAPROSYN) 7-24 tablet by ity of 500 mg 00:00: mouth in [place] tablet 00 the Medical morning Branch and 1 tablet in the evening. Take with meals. methocarbam 2021-0 Yes [id number] 500mg Take 1 Univers oL 500 mg 7-24 tablet by ity o f tablet 00:00: mouth 4 [place] 00 (four) Medical times [place] daily. naproxen 2021-0 2021- No [id number] 500mg Take 1 Univers (NAPROSYN) 7-24 10-14 tablet by ity of 500 mg 00:00: 00:00 mouth in [place] tablet 00 :00 the Medical morning Branch and 1 tablet in the evening. Take with meals. methocarbam 2021-0 2021- No [id number] 500mg Take 1 Univers oL 500 mg 7-24 10-14 tablet by ity of tablet 00:00: 00:00 mouth 4 [place] 00 :00 (four) [facility] times [place] daily. naproxen 2021-0 2- No [id number] 500mg Take 1 Univers (NAPROSYN) 7-24 10-14 tablet by ity of 500 mg 00:00: 00:00 mouth in [place] tablet 00 :00 the Medical morning Branch and 1 tablet in the evening. Take with meals. methocarbam 2021-0 2022- No [id number] 500mg Take 1 Univers oL 500 mg 7-24 10-14 tablet by ity of tablet 00:00: 00:00 mouth 4 [place] 00 :00 (four) Medical times [place] daily. esomeprazol 2021-2- No 40mg Take 40 mg Univers e (NEXIUM) 11-20 by mouth 2 it y of 40 mg 09:12: 00:00 (two) [place] capsule 03 :00 times Medical daily. Branch amiodarone 2021-2- No 100mg Take 100 U nivers 100 mg 11-20 mg by ity of tablet 09:11: 00:00 mouth [place] 57 :00 daily. Medical Branch apixaban No 5mg Take 5 mg Uni vers (ELIQUIS) 5 11-20 by mouth 2 i ty of mg tablet 09:11: 00:00 (two) [place] 35 :00 times Medical daily. Branch traZODONE No Take by [facility] ers (DESYREL) 11-20 mouth at ity o f 10 mg/mL 09:10: 00:00 bedtime. [place] oral 28 :00 Medical suspension Branch hydralAZINE Yes 25mg Take 25 mg Univers (APRESOLINE 11-20 by mouth ity of ) 25 mg 08:47: daily. [place] tablet 47 Medical Branch cephALEXin 2021- No [id number] 500mg Take 1 Univers (KEFLEX) 10-24 capsule [...] 7-10). Indication s: acute pain buPROPion Yes [id number] 150mg Take 1 U nivers XL 4-12 tablet by ity of (WELLBUTRIN 00:00: mouth [place] XL) 150 mg 00 daily. Medical 24 hr Branch tablet busPIRone Yes [id number] 30mg Take 1 Un matt 30 mg 4-12 tablet by ity of tablet 00:00: mouth 2 [place] 00 (two) Medical times Branch daily. SERTraline Yes [id number] 200mg Take 2 Univers 100 mg 4-12 tablets by ity of tablet 00:00: mouth [place] 00 daily. Medical Branch buPROPion Yes [id number] 150mg Take 1 U nivers XL 4-12 tablet by ity of (WELLBUTRIN 00:00: mouth [place] XL) 150 mg 00 daily. Medical 24 hr Branch tablet busPIRone Yes [id number] 30mg Take 1 Un matt 30 mg 4-12 tablet by ity of tablet 00:00: mouth 2 [place] 00 (two) Medical times Branch daily. SERTraline 0 Yes [id number] 200mg Take 2 Univers 100 mg 4-12 tablets by ity of tablet 00:00: mouth [place] 00 daily. Medical Branch buPROPion 0 Yes [id number] 150mg Take 1 U nivers XL 4-12 tablet by ity of (WELLBUTRIN 00:00: mouth [place] XL) 150 mg 00 daily. Medical 24 hr Branch tablet busPIRone Yes [id number] 30mg Take 1 Un matt 30 mg 4-12 tablet by ity of tablet 00:00: mouth 2 [place] 00 (two) Medical times Branch daily. SERTraline Yes [id number] 200mg Take 2 [facility] 100 mg 4-12 tablets by ity of tablet 00:00: mouth [place] 00 daily. Medical Branch buPROPion Yes [id number] 150mg Take 1 U nivers XL 4-12 tablet by ity of (WELLBUTRIN 00:00: mouth [place] XL) 150 mg 00 daily. Medical 24 hr Branch tablet busPIRone Yes [id number] 30mg Take 1 Un matt 30 mg 4-12 tablet by ity of tablet 00:00: mouth 2 [place] 00 (two) Medical times Branch daily. SERTraline Yes [id number] 200mg Take 2 [facility] 100 mg 4-12 tablets by ity of tablet 00:00: mouth [place] 00 daily. Medical Branch buPROPion 0 Yes [id number] 150mg Take 1 U nivers XL 4-12 tablet by ity of (WELLBUTRIN 00:00: mouth [place] XL) 150 mg 00 daily. Medical 24 hr Branch tablet busPIRone 0 Yes [id number] 30mg Take 1 Un matt 30 mg 4-12 tablet by ity of tablet 00:00: mouth 2 [place] 00 (two) Medical times Branch daily. SERTraline 0 Yes [id number] 200mg Take 2 [facility] 100 mg 4-12 tablets by ity of tablet 00:00: mouth [place] 00 daily. Medical Branch buPROPion 0 Yes [id number] 150mg Take 1 U nivers XL 4-12 tablet by ity of (WELLBUTRIN 00:00: mouth [place] XL) 150 mg 00 daily. Medical 24 hr Branch tablet busPIRone 2021-0 Yes [id number] 30mg Take 1 Un matt 30 mg 4-12 tablet by ity of tablet 00:00: mouth 2 00 (two) Medical times Branch daily. SERTraline 2021-0 Yes [id number] 200mg Take 2 [facility] 100 mg 4-12 tablets by ity of tablet 00:00: mouth [place] 00 daily. Medical Branch buPROPion 2021-0 Yes [id number] 150mg Take 1 U nivers XL 4-12 tablet by ity of (WELLBUTRIN 00:00: mouth [place] XL) 150 mg 00 daily. Medical 24 hr Branch tablet busPIRone 2021-0 Yes [id number] 30mg Take 1 Un matt 30 mg 4-12 tablet by ity of tablet 00:00: mouth 2 (two) Medical times Branch daily. SERTraline 2021-0 Yes [id number] 200mg Take 2 [facility] 100 mg 4-12 tablets by ity of tablet 00:00: mouth [place] 00 daily. Medical Branch buPROPion 2021-0 Yes [id number] 150mg Take 1 U nivers XL 4-12 tablet by ity of (WELLBUTRIN 00:00: mouth [place] XL) 150 mg 00 daily. Medical 24 hr Branch tablet busPIRone 2021-0 Yes [id number] 30mg Take 1 Un matt 30 mg 4-12 tablet by ity of tablet 00:00: mouth 2 00 (two) Medical times Branch daily. SERTraline 2021-0 Yes [id number] 200mg Take 2 [facility] 100 mg 4-12 tablets by ity of tablet 00:00: mouth [place] 00 daily. Medical Branch buPROPion 2021-0 Yes [id number] 150mg Take 1 U nivers XL 4-12 tablet by ity of (WELLBUTRIN 00:00: mouth [place] XL) 150 mg 00 daily. Medical 24 hr Branch tablet busPIRone 2021-0 Yes [id number] 30mg Take 1 Un matt 30 mg 4-12 tablet by ity of tablet 00:00: mouth 2 00 (two) Medical times Branch daily. SERTraline 2021-0 Yes [id number] 200mg Take 2 [facility] 100 mg 4-12 tablets by ity of tablet 00:00: mouth [place] 00 daily. Medical Branch buPROPion 2021-0 Yes [id number] 150mg Take 1 U nivers XL 4-12 tablet by ity of (WELLBUTRIN 00:00: mouth [place] XL) 150 mg 00 daily. Medical 24 hr Branch tablet busPIRone 2021-0 Yes [id number] 30mg Take 1 Un matt 30 mg 4-12 tablet by ity of tablet 00:00: mouth 2 [place] 00 (two) Medical times Branch daily. SERTraline 2021-0 Yes [id number] 200mg Take 2 [facility] 100 mg 4-12 tablets by ity of tablet 00:00: mouth [place] 00 daily. Medical Branch buPROPion 2021-0 Yes [id number] 150mg Take 1 U nivers XL 4-12 tablet by ity of (WELLBUTRIN 00:00: mouth [place] XL) 150 mg 00 daily. Medical 24 hr Branch tablet busPIRone 2021-0 Yes [id number] 30mg Take 1 Un matt 30 mg 4-12 tablet by ity of tablet 00:00: mouth 2 [place] 00 (two) Medical times Branch daily. SERTraline 2021-0 Yes [id number] 200mg Take 2 [facility] 100 mg 4-12 tablets by ity of tablet 00:00: mouth [place] 00 daily. Medical Branch raltegravir 2021-0 Yes [id number] 400mg Take 1 [facility] (ISENTRESS) 3-28 tablet by ity of 400 mg 00:00: mouth 2 [place] tablet 00 (two) Medical times Branch daily. raltegravir 2021-0 Yes [id number] 400mg Take 1 [facility] (ISENTRESS) 3-28 tablet by ity of 400 mg 00:00: mouth 2 [place] tablet 00 (two) Medical times Branch daily. raltegravir 2021-0 Yes [id number] 400mg Take 1 [facility] (ISENTRESS) 3-28 tablet by ity of 400 mg 00:00: mouth 2 [place] tablet 00 (two) Medical times Branch daily. raltegravir 2021-0 Yes [id number] 400mg Take 1 [facility] (ISENTRESS) 3-28 tablet by ity of 400 mg 00:00: mouth 2 [place] tablet 00 (two) Medical times Branch daily. raltegravir 2021-0 Yes [id number] 400mg Take 1 [facility] (ISENTRESS) 3-28 tablet by ity of 400 mg 00:00: mouth 2 [place] tablet 00 (two) Medical times Branch daily. raltegravir 2021-0 Yes [id number] 400mg Take 1 [facility] (ISENTRESS) 3-28 tablet by ity of 400 mg 00:00: mouth 2 [place] tablet 00 (two) Medical times Branch daily. raltegravir 2021-0 Yes [id number] 400mg Take 1 [facility] (ISENTRESS) 3-28 tablet by ity of 400 mg 00:00: mouth 2 [place] tablet 00 (two) Medical times Branch daily. raltegravir 2021-0 Yes [id number] 400mg Take 1 [facility] (ISENTRESS) 3-28 tablet by ity of 400 mg 00:00: mouth 2 [place] tablet 00 (two) Medical times Branch daily. raltegravir 2021-0 Yes [id number] 400mg Take 1 [facility] (ISENTRESS) 3-28 tablet by ity of 400 mg 00:00: mouth 2 [place] tablet 00 (two) Medical times Branch daily. raltegravir 2021-0 Yes [id number] 400mg Take 1 [facility] (ISENTRESS) 3-28 tablet by ity of 400 mg 00:00: mouth 2 [place] tablet 00 (two) Medical times Branch daily. raltegravir 2021-0 Yes [id number] 400mg Take 1 [facility] (ISENTRESS) 3-28 tablet by ity of 400 mg 00:00: mouth 2 [place] tablet 00 (two) Medical times Branch daily. LORazepam 1 2021- No [id number] 1mg Take 1 [facility] mg tablet 3-21 - tablet by ity of 00:00: 00:00 mouth [...] times a tablet day. emtricitabi 2021- No [id number] Take one [facility] ne-tenofovi 1-20 09-12 po daily ity of r alafen 00:00: 00:00 [place] (DESCOVY) 00 :00 Medical tablet Branch metoprolol Yes [id number] Take 1 [facility] tartrate 7-26 tablet [facility] (Lopressor) 00:00: (100 mg 100 MG 00 total) by tablet mouth 2 (two) times a day AND 0.5 tablets (50 mg total) every night. metoprolol Yes [id number] Take 1 [facility] tartrate 7-26 [facility] (Lopressor) 00:00: (100 mg 100 MG 00 total) by tablet mouth 2 (two) times a day AND 0.5 tablets (50 mg total) every night. raltegravir Yes 400mg Q.5D Take 400 [facility] (Isentress) 7-23 mg by Health 400 MG 08:03: mouth 2 tablet 05 (two) times a day. LORAZepam Yes 2mg QD Take 2 mg [...] (affected area in groin) hydrALAZINE Yes 50mg Q.[id number] Take 50 mg [facility] (APRESOLINE 7-19 [id number] mouth [facility] ) 50 MG [...] area in groin) hydrALAZINE 0 Yes 50mg Q.[id number] Take 50 mg [facility] (APRESOLINE 7-19 [id number] [facility] mouth [facility] ) 50 MG [...] (affected area in groin) hydrALAZINE Yes 50mg Q.[id number] Take 50 mg [facility] (APRESOLINE 7-19 [id number] mouth [facility] ) 50 MG 10:51: 3D (three) [facility]osp[facility] tablet 25 times a l day. busPIRone Yes 20mg QD Take 20 mg [facility] (BUSPAR) 10 - by mouth st MG tablet 10:51: nightly. [...] area in groin) hydrALAZINE 0 Yes 50mg Q.[id number] Take 50 mg [facility] (APRESOLINE 7-19 [id number] [address] mouth [facility] ) 50 MG [...] area in groin) hydrALAZINE 2020-0 Yes 50mg Q.[id number] Take 50 mg [facility] (APRESOLINE 7-[id number] mouth [facility] ) 50 MG [...] (affected area in groin) hydrALAZINE Yes 50mg Q.[id number] Take 50 mg [facility] (APRESOLINE 7-19 [id number] mouth [facility] ) 50 MG [...] area in groin) hydrALAZINE 0 Yes 50mg Q.[id number] Take 50 mg [facility] (APRESOLINE 7-19 [id number] mouth [facility] ) 50 MG [...] area in groin) hydrALAZINE 0 Yes 50mg Q.[id number] Take 50 mg [facility] (APRESOLINE 7-[id number] mouth [facility] [address] ) 50 MG [...] (affected area in groin) hydrALAZINE Yes 50mg Q.[id number] Take 50 mg [facility] (APRESOLINE 7-[id number] mouth [facility] ) 50 MG [...] (affected area in groin) hydrALAZINE Yes 50mg Q.[id number] Take 50 mg [facility] (APRESOLINE 7-[id number] mouth 3 [address] ) 50 MG [...] area in groin) hydrALAZINE 0 Yes 50mg Q.[id number] Take 50 mg [facility] (APRESOLINE 7-19 [id number] mouth [facility] ) 50 MG [...] area in groin) hydrALAZINE 0 Yes 50mg Q.[id number] Take 50 mg [facility] (APRESOLINE 7-[id number] mouth [facility] [address] ) 50 MG [...] (affected area in groin) hydrALAZINE Yes 50mg Q.[id number] Take 50 mg [facility] (APRESOLINE 7-[id number] mouth [facility] ) 50 MG [...] area in groin) hydrALAZINE 0 Yes 50mg Q.[id number] Take 50 mg [facility] (APRESOLINE 7-[id number] mouth [address] ) 50 MG [...] area in groin) hydrALAZINE 0 Yes 50mg Q.[id number] Take 50 mg [facility] (APRESOLINE 7-19 [id number] mouth [facility] ) 50 MG [...] (affected area in groin) hydrALAZINE Yes 50mg Q.[id number] Take 50 mg [facility] (APRESOLINE 7-[id number] mouth [facility] ) 50 MG [...] area in groin) hydrALAZINE 0 Yes 50mg Q.[id number] Take 50 mg [facility] (APRESOLINE 7-[id number] mouth [facility] ) 50 MG [...] area in groin) hydrALAZINE 0 Yes 50mg Q.[id number] Take 50 mg [facility] (APRESOLINE 7-19 [id number] mouth [facility] ) 50 MG [...] (affected area in groin) hydrALAZINE Yes 50mg Q.[id number] Take 50 mg [facility] (APRESOLINE 7-[id number] mouth [address] ) 50 MG [...] area in groin) hydrALAZINE 0 Yes 50mg Q.[id number] Take 50 mg [facility] (APRESOLINE 7-[id number] mouth [facility] ) 50 MG [...] area in groin) hydrALAZINE 0 Yes 50mg Q.[id number] Take 50 mg [facility] (APRESOLINE 7-[id number] mouth [facility] ) 50 MG [...] (affected area in groin) hydrALAZINE Yes 50mg Q.[id number] Take 50 mg [facility] (APRESOLINE 7-[id number] mouth [facility] ) 50 MG [...] (affected area in groin) hydrALAZINE Yes 50mg Q.[id number] Take 50 mg [facility] (APRESOLINE 7-[id number] mouth [facility] [address] ) 50 MG [...] area in groin) hydrALAZINE 0 Yes 50mg Q.[id number] Take 50 mg [facility] (APRESOLINE 7-19 [id number] mouth [facility] [address] ) 50 MG [...] mg 10:51: daily. Hosp[facility] tablet 25 l nystatin-tr 2020-0 Yes [id number] Apply to [facility] 11-25 area(s) 3 ity of cream 00:00: (three) [place] 00 times Medical daily. Branch nystatin-tr 2020-0 Yes [id number] Apply to [facility] 7- area(s) 3 ity of cream 00:00: (three) [place] 00 times Medical daily. Branch nystatin-tr 2021-0 Yes [id number] Apply to [facility] iamcinolone 7-06 area(s) 3 ity of cream 00:00: (three) [place] 00 times Medical daily. Branch nystatin-tr 2021-0 Yes [id number] Apply to [facility] iamcinolone 7-06 area(s) 3 ity of cream 00:00: (three) [place] 00 times Medical daily. Branch nystatin-tr 2021-0 Yes [id number] Apply to [facility] iamcinolone 7-06 area(s) 3 ity of cream 00:00: (three) [place] 00 times Medical daily. Branch nystatin-tr 2021-0 Yes [id number] Apply to [facility] iamcinolone 7-06 area(s) 3 ity of cream 00:00: (three) [place] 00 times Medical daily. Branch nystatin-tr 2021-0 Yes [id number] Apply to [facility] iamcinolone 7-06 area(s) 3 ity of cream 00:00: (three) [place] 00 times Medical daily. Branch nystatin-tr 2021-0 Yes [id number] Apply to [facility] iamcinolone 7-06 area(s) 3 ity of cream 00:00: (three) [place] 00 times Medical daily. Branch nystatin-tr 2021-0 Yes [id number] Apply to [facility] iamcinolone 7-06 area(s) 3 ity of cream 00:00: (three) [place] 00 times Medical daily. Branch nystatin-tr 2021-0 Yes [id number] Apply to [facility] iamcinolone 7-06 area(s) 3 ity of cream 00:00: (three) [place] 00 times Medical daily. Branch nystatin-tr 1-0 Yes [id number] Apply to [facility] iamcinolone 7-06 area(s) 3 ity of cream 00:00: (three) [place] 00 times Medical daily. Laurie budesonide- 2020-0 2020- No 1{puff} QD Inhale 1 [facility] formoteroL 6-25 06-[address] (SYMBICORT) 14:37: 00:00 morning. H ospita 160-4.5 02 :00 l mcg/actuati on inhaler hydrALAZINE 0 Yes [id number] 50mg Q.[id number] Take 1 [facility] (Apresoline 6-11 [id number] tablet (50 Health ) 50 MG 00:00: 3D mg total) tablet 00 by mouth 3 (three) times a day. hydrALAZINE 0 Yes [id number] 50mg Q.[id number] Take 1 [facility] (Apresoline 6-11 [id number] tablet (50 Health ) 50 MG 00:00: [...] 00:00: ointment 00 nystatin 2020-0 2021- No [id number] Q.25D Take 5 mL [facility] (MYCOSTATIN 5-17 06- (500,000 st ) 100,000 00:00: 04:59 Units Hospit a unit/mL 00 :00 total) by l suspension mouth 4 (four) times a day for 14 days. Swish in mouth sucralfate 2020-0 2020- No 1g Q.25D Take 10 mL [...] (one) time tablet 00 each day. clobetasol 2020- Yes 1{appli Q12H Apply 1 [...] ia 4-10 (Same as: l 14:00: Norvasc) [place] emtricitabi No Notes: Caesar lisa ne 200 MG / 4-10 (Same as: l tenofovir 14:00: Descovy) Herm ariel alafenamide 00 Non-formul 25 MG Oral nancy Tablet [Descovy] pantoprazol No Notes: [place] lisa e 4-10 Tablet l 14:00: should not [place] 00 be chewed or crushed. (Same as: Protonix) Amiodarone No Notes: Memor ia 4-10 (Same as: l 14:00: Cordarone) [place] 00 Amlodipine No Notes: Memor ia 4-10 (Same as: l 14:00: Norvasc) [place] emtricitabi No Notes: [place] lisa ne 200 MG / 4-10 (Same as: l tenofovir 14:00: Descovy) Herm ariel alafenamide 00 Non-formul 25 MG Oral nancy Tablet [Descovy] Sertraline No Notes: Memor ia 4-10 (Same as: l 14:00: Zoloft) [place] Sertraline No Notes: Memor ia 4-10 (Same as: l 14:00: Zoloft) [place] pantoprazol No Notes: [place] lisa e 4-10 Tablet l 14:00: should not [place] 00 be chewed or crushed. (Same as: Protonix) Amiodarone No Notes: Memor ia 4-10 (Same as: l 14:00: Cordarone) [place] 00 Amlodipine No Notes: Memor ia 4-10 (Same as: l 14:00: Norvasc) [place] emtricitabi No Notes: [place] lisa ne 200 MG / 4-10 (Same as: l tenofovir 14:00: Descovy) Herm ariel alafenamide 00 Non-formul 25 MG Oral nancy Tablet [Descovy] Sertraline No Notes: Memor ia 4-10 (Same as: l 14:00: Zoloft) [place] 00 pantoprazol No Notes: [place] lisa e 4-10 Tablet l 14:00: should not [place] 00 be chewed or crushed. (Same as: Protonix) Amiodarone No Notes: Memor ia 4-10 (Same as: l 14:00: Cordarone) [place] Amlodipine No Notes: Memor ia 4-10 (Same as: l 14:00: Norvasc) [place] emtricitabi No Notes: [place] lisa ne 200 MG / 4-10 (Same as: l tenofovir 14:00: Descovy) Herm ariel alafenamide 00 Non-formul 25 MG Oral nancy Tablet [Descovy] Sertraline No Notes: Memor ia 4-10 (Same as: l 14:00: Zoloft) [place] 00 pantoprazol No Notes: [place] lisa e 4-10 Tablet l 14:00: should not [place] 00 be chewed or crushed. (Same as: Protonix) Amiodarone No Notes: Memor ia 4-10 (Same as: l 14:00: Cordarone) [place] 00 Amlodipine No Notes: Memor ia 4-10 (Same as: l 14:00: Norvasc) [place] emtricitabi No Notes: [place] lisa ne 200 MG / 4-10 (Same as: l tenofovir 14:00: Descovy) Herm ariel alafenamide 00 Non-formul 25 MG Oral nancy Tablet [Descovy] Sertraline No Notes: Memor ia 4-10 (Same as: l 14:00: Zoloft) [place] 00 pantoprazol No Notes: [place] lisa e 4-10 Tablet l 14:00: should not [place] 00 be chewed or crushed. (Same as: [...] ia 4-10 (Same as: l 14:00: Zoloft) [place] pantoprazol No Notes: [place] lisa e 4-10 Tablet l 14:00: should not [place] 00 be chewed or crushed. (Same as: Protonix) Amiodarone No Notes: Memor ia 4-10 (Same as: l 14:00: Cordarone) Amlodipine No Notes: Memor ia 4-10 (Same as: l 14:00: Norvasc) [place] 00 emtricitabi No Notes: [place] lisa ne 200 MG / 4-10 (Same as: l tenofovir 14:00: Descovy) Herm ariel alafenamide 00 Non-formul 25 MG Oral nancy Tablet [Descovy] Sertraline No Notes: Memor ia 4-10 (Same as: l 14:00: Zoloft) pantoprazol No Notes: [place] lisa e 4-10 Tablet l 14:00: should not [place] 00 be chewed or crushed. (Same as: [...] 0.9% 4-10 (Same as: l 02:00: BD [place] Posiflush) Eliquis No Notes: Memoria 4-10 Same as: l 02:00: Eliquis [place] Hydralazine No Notes: [place] lisa Hydrochlori 4-10 [...] 0.9% 4-10 (Same as: l 02:00: BD [place] Posiflush) Eliquis No Notes: [facility] 4-10 Same as: l 02:00: Eliquis [place] 00 Hydralazine No Notes: [place] lisa Hydrochlori 4-10 (Same as: l de 50 MG 02:00: Apresoline Her mitchell Oral Tablet 00 ) May interfere w/enteral feedings Take With Food Sucralfate No Notes: May M emoria 4-10 interfere l 02:00: w/enteral [place] 00 feeds - Take 1 hr before [...] Memoria 4-10 Same as: l 02:00: Eliquis [place] Hydralazine No Notes: Caesar lisa Hydrochlori 4-10 (Same as: l de 50 MG 02:00: Apresoline Her [place] Oral Tablet 00 ) May interfere w/enteral feedings Take With Food Sucralfate No Notes: May M emoria 4-10 interfere l 02:00: w/enteral [place] 00 feeds - Take 1 hr before or 2 hr after antacids, dairy pdt, meals & minerals - On empty stomach. For patients unable to swallow tablet, dissolve in 10mL - 30mL of water or juice and stir before giving. (Same As: Carafate) Saline No Notes: Memoria Flush 0.9% 4-10 (Same as: l 02:00: BD [place] 00 Posiflush) Eliquis No Notes: Memoria 4-10 Same as: l 02:00: Eliquis [place] Hydralazine No Notes: Caesar lisa Hydrochlori 4-10 [...] M emoria 4-10 interfere l 02:00: w/enteral [place] 00 feeds - Take 1 hr before or 2 hr after antacids, dairy pdt, meals & minerals - On empty stomach. For patients unable to swallow tablet, dissolve in 10mL - 30mL of water or juice and stir before giving. (Same As: Carafate) Saline No Notes: [facility] Flush 0.9% 4-10 (Same as: l 02:00: BD [place] 00 Posiflush) Eliquis No Notes: [facility] 4-10 Same as: l 02:00: Eliquis Hydralazine No Notes: Caesar lisa Hydrochlori 4-10 (Same as: l de 50 MG 02:00: Apresoline Her [place] Oral Tablet 00 ) May interfere w/enteral feedings Take With Food Sucralfate No Notes: May M emoria 4-10 interfere l 02:00: w/enteral [place] 00 feeds - Take 1 hr before [...] Notes: Mem[facility] 4-10 Same as: l 02:00: Eliqu Hydralazine No Notes: Caesar lisa Hydrochlori 4-10 [...] not exceed l #3 00:12: 4gm/day of [place] acetaminop hen. (Same as: Tylenol with Codeine # 3) acetaminoph No Notes: Do M emoria en-codeine 4-10 not exceed l #3 00:12: 4gm/day of [place] acetaminop hen. (Same as: Tylenol with Codeine # 3) acetaminoph No Notes: Do M emoria en-codeine 4-10 not exceed l #3 00:12: 4gm/day of [place] acetaminop hen. (Same as: Tylenol with Codeine # 3) acetaminoph No Notes: Do M emoria en-codeine 4-10 not exceed l #3 00:12: 4gm/day of [place] acetaminop hen. (Same as: Tylenol with Codeine # 3) acetaminoph No Notes: Do M emoria en-codeine 4-10 not exceed l #3 00:12: 4gm/day of [place] acetaminop hen. (Same as: Tylenol with Codeine # 3) acetaminoph No Notes: Do M emoria en-codeine 4-10 not exceed l #3 00:12: 4gm/day of [place] acetaminop hen. (Same as: Tylenol with Codeine # 3) Buspirone No Notes: Memori a 08-29 (Same As: l 22:00: BuSpar) Lisinopril No 40 mg, 1 Mem oria - tab, l 22:00: Route: PO, [place] Drug form: TAB, BID, Dosing Weight 97.273, kg, Start date: 08/29/20 17:00:00 CDT, Duration: 30 day, Stop date: 09/28/20 9:00:00 CDT metoprolol No 100 mg, 1 Me [facility] tartrate - tab, l 22:00: Route: PO, [place] Drug form: TAB, BID, Dosing Weight 97.273, kg, Start date: 08/29/20 17:00:00 CDT, Duration: 30 day, Stop date: 09/28/20 9:00:00 CDT Raltegravir No 400 mg, 1 M emoria 400 MG Oral - tab, l Tablet 22:00: Route: [facility], [place] [facility] Drug form: TAB, BID, Dosing Weight [...] Tablet 22:00: Route: [facility], [place] [facility] Drug form: TAB, BID, Dosing Weight [...] tartrate 4-09 tab, l 22:00: Route: PO, [place] 00 Drug form: TAB, BID, Dosing Weight [...] oria 4-09 tab, l 22:00: Route: PO, [place] 00 Drug form: TAB, BID, Dosing Weight [...] Notes: Memoria 4-09 (Same l 17:07: as:MORPhin [place] 00 e Sulfate) Morphine No Notes: [facility]oria 4-09 (Same l 17:07: as:MORPhin [place] 00 e Sulfate) Morphine No Notes: [facility]oria 4-09 (Same l 17:07: as:MORPhin [place] 00 e Sulfate) Morphine No Notes: [facility]oria 4-09 (Same l 17:07: as:MORPhin [place] 00 e Sulfate) Morphine No Notes: [facility] 4-09 (Same l 17:07: as:MORPhin [place] 00 e Sulfate) Morphine No Notes: [facility] 4-09 (Same l 17:07: as:MORPhin [place] 00 e Sulfate) Morphine No Notes: Memoria [...] 00 Stop date: 08/29/20 10:40:00 CDT pantoprazol 2020-0 Yes 40 mg = 1 M emoria e 40 mg 4-09 tab, PO, l oral 15:27: Daily, # [place] enteric 00 30 tab, 0 coated Refill(s), tablet Pharmacy: [facility] 149, 162.56, cm, 08/29/20 5:30:00 CDT, Height, 97.273, kg, 08/29/20 5:30:00 CDT, Weight pantoprazol 2020-0 Yes 40 mg = 1 M emoria e 40 mg 4-09 tab, PO, l oral 15:27: Daily, # [place] enteric 00 30 tab, 0 coated Refill(s), tablet Pharmacy: [facility] 149, 162.56, cm, 08/29/20 5:30:00 CDT, Height, 97.273, kg, 08/29/20 5:30:00 CDT, Weight pantoprazol 2020-0 Yes 40 mg = 1 M emoria e 40 mg 4-09 tab, PO, l oral 15:27: Daily, # [place] enteric 00 30 tab, 0 coated Refill(s), tablet Pharmacy: [facility] 149, 162.56, cm, 08/29/20 5:30:00 CDT, Height, 97.273, kg, 08/29/20 5:30:00 CDT, Weight pantoprazol 2020-0 Yes 40 mg = 1 M emoria e 40 mg 4-09 tab, PO, l oral 15:27: Daily, # [place] enteric 00 30 tab, 0 coated Refill(s), tablet Pharmacy: [facility] 149, 162.56, cm, 08/29/20 5:30:00 CDT, Height, 97.273, kg, 08/29/20 5:30:00 CDT, Weight pantoprazol 1-0 Yes 40 mg = 1 M emoria e 40 mg 4-09 tab, PO, l oral 15:27: Daily, # [place] enteric 00 30 tab, 0 coated Refill(s), tablet Pharmacy: [facility] 149, 162.56, cm, 08/29/20 5:30:00 CDT, Height, 97.273, kg, 08/29/20 5:30:00 CDT, Weight pantoprazol 1-0 Yes 40 mg = 1 M emoria e 40 mg 4-09 tab, PO, l oral 15:27: Daily, # [place] enteric 00 30 tab, 0 coated Refill(s), tablet Pharmacy: [facility] 149, 162.56, cm, 08/29/20 5:30:00 CDT, Height, 97.273, kg, 08/29/20 5:30:00 CDT, Weight pantoprazol 2020-0 Yes 40 mg = 1 M emoria e 40 mg 4-09 tab, PO, l oral 15:27: Daily, # [place] enteric 00 30 tab, 0 coated Refill(s), tablet Pharmacy: [facility] 149, 162.56, cm, 08/29/20 [...] nn 00 tab, 0 Refill(s), Pharmacy: [facility] 149, 162.56, cm, 08/29/20 5:30:00 CDT, Height, 97.273, kg, 08/29/20 5:30:00 CDT, Weight pantoprazol 1-0 No 40 mg = 1 M emoria e 40 mg 4-09 tab, PO, l oral 15:26: Daily, # [place] enteric 00 30 tab, 0 coated Refill(s) tablet sucralfate 1-0 Yes 1 gm = 1 Mem oria 1 g oral 4-09 tab, PO, l tablet 15:26: Q12H, # 28 [place]yl[place] nn 00 tab, 0 Refill(s), Pharmacy: [facility] 149, 162.56, cm, 08/29/20 [...] nn 00 tab, 0 Refill(s), Pharmacy: [facility] 149, 162.56, cm, 08/29/20 5:30:00 CDT, Height, 97.273, kg, 08/29/20 5:30:00 CDT, Weight pantoprazol 2020-0 No 40 mg = 1 M emoria e 40 mg 4-09 tab, PO, l oral 15:26: Daily, # [place] enteric 00 30 tab, 0 coated Refill(s) tablet sucralfate 2020-0 Yes 1 gm = 1 Mem oria 1 g oral 4-09 tab, PO, l tablet 15:26: Q12H, # 28 [place] nn 00 tab, 0 Refill(s), Pharmacy: [facility] 149, 162.56, cm, 08/29/20 5:30:00 CDT, Height, 97.273, kg, 08/29/20 5:30:00 CDT, Weight pantoprazol 2020-0 No 40 mg = 1 M emoria e 40 mg 4-09 tab, PO, l oral 15:26: Daily, # [place] enteric 00 30 tab, 0 coated Refill(s) tablet sucralfate 2020-0 Yes 1 gm = 1 Mem oria 1 g oral 4-09 tab, PO, l tablet 15:26: Q12H, # 28 [place] nn 00 tab, 0 Refill(s), Pharmacy: [facility] 149, 162.56, cm, 08/29/20 [...] nn 00 tab, 0 Refill(s), Pharmacy: [facility] 149, 162.56, cm, 08/29/20 [...] nn 00 tab, 0 Refill(s), Pharmacy: [facility] 149, 162.56, cm, 08/29/20 5:30:00 CDT, Height, 97.273, kg, 08/29/20 5:30:00 CDT, Weight Saline No Notes: Memoria Flush 0.9% 4-09 (Same as: l 15:25: BD [place] 00 Posiflush) Lorazepam No Notes: Memori a 4-09 (Same as: l 15:25: Ativan) [place] 00 Saline No Notes: [facility]oria Flush 0.9% 4-09 (Same as: l 15:25: BD [place] 00 Posiflush) Lorazepam No Notes: Memori a 4-09 (Same as: l 15:25: Ativan) [place] 00 Saline No Notes: [facility]oria Flush 0.9% 4-09 (Same as: l 15:25: BD [place] 00 Posiflush) Saline No Notes: Memoria Flush 0.9% 4-09 (Same as: l 15:25: BD [place] 00 Posiflush) Lorazepam No Notes: Memori a 4-09 (Same as: l 15:25: Ativan) Marty 00 Lorazepam No Notes: Memori a 4-09 (Same as: l 15:25: Ativan) Marty 00 Saline No Notes: Memoria Flush 0.9% 4-09 (Same as: l 15:25: BD [place] Posiflush) Lorazepam No Notes: Memori a 4-09 (Same as: l 15:25: Ativan) [place] 00 Saline No Notes: Memoria Flush 0.9% 4-09 (Same as: l 15:25: BD [place] 00 Posiflush) Lorazepam No Notes: Memori a 4-09 (Same as: l 15:25: Ativan) Saline No Notes: Memoria Flush 0.9% 4-09 (Same as: l 15:25: BD [place] Posiflush) Lorazepam No Notes: Memori a 4-09 [...] Drug form: l mg + 15:00: INJ, [place] Dosing Weight 97.3, kg, Start date: 08/29/20 10:00:00 CDT, Stop date: 08/29/20 11:00:00 CDT Isuprel HCl 0 No Route: IV, Memoria (ANES) 0.2 08-29 Drug form: l mg + 15:00: INJ, [place] 00 Dosing Weight 97.3, kg, Start date: [...] 08-29 Drug form: l 14:29: INJ, ONCE, [place] 00 Stop date: 08/29/20 9:29:00 CDT heparin 0 [...] 08-29 Route: PO, l 14:01: Drug form: [place] 00 TAB, ONCE, Dosing Weight 97.273, kg, [...] oria ne 08-29 Route: l 14:01: IVP, [place] 00 Q5Min, Dosing Weight 97.273, kg, PRN [...] Memori a 08-29 Route: l 14:01: IVP, [place] 00 Q5Min, Dosing Weight 97.273, kg, PRN [...] lisa 08-29 Route: l 14:01: IVP, PRN, [place] 00 Dosing Weight 97.273, kg, PRN Benzodiaze pine Reversal, Initial dose, Start date: 08/29/20 9:01:00 CDT, Duration: 30 day, Stop date: 09/28/20 9:00:00 CDT Naloxone 1-0 No 0.4 mg, Memori a 08-29 Route: l 14:01: IVP, [place] 00 Q2MIN, Dosing Weight 97.273, kg, PRN [...] Memori a 08-29 Route: l 14:01: IVP, [place] 00 Q5Min, Dosing Weight 97.273, kg, PRN [...] Memori a 08-29 Route: l 14:01: IVP, [place] 00 Q2MIN, Dosing Weight 97.273, kg, PRN [...] 08-29 Route: PO, l 14:01: Drug form: [place] 00 TAB, ONCE, Dosing Weight 97.273, kg, [...] oria ne 08-29 Route: l 14:01: IVP, [place] 00 Q5Min, Dosing Weight 97.273, kg, PRN Pain Score 7-10, Start date: 08/29/20 9:01:00 CDT, Duration: 4 doses or times, Stop date: Limited # of times Labetalol 2021-0 No 10 mg, Memori a 08-29 Route: l 14:01: IVP, [place] 00 Q5Min, Dosing Weight 97.273, kg, PRN [...] lisa 08-29 Route: l 14:01: IVP, PRN, [place] 00 Dosing Weight 97.273, kg, PRN Benzodiaze [...] lisa 08-29 Route: l 14:01: IVP, PRN, [place] 00 Dosing Weight 97.273, kg, PRN Benzodiaze pine Reversal, Initial dose, Start date: 08/29/20 9:01:00 CDT, Duration: 30 day, Stop date: 09/28/20 9:00:00 CDT Ondansetron 1-0 No 4 mg, Memor ia 08-29 Route: l 14:01: IVP, ONCE, [place] 00 Dosing Weight 97.273, kg, PRN Nausea [...] 08-29 Route: PO, l 14:01: Drug form: [place] 00 TAB, ONCE, Dosing Weight 97.273, kg, [...] oria ne 08-29 Route: l 14:01: IVP, [place] 00 Q5Min, Dosing Weight 97.273, kg, PRN Pain Score 7-10, Start date: 08/29/20 9:01:00 CDT, Duration: 4 doses or times, Stop date: Limited # of times Flumazenil 1-0 No 0.2 mg, Caesar lisa 08-29 Route: l 14:01: IVP, PRN, [place] 00 Dosing Weight 97.273, kg, PRN Benzodiaze [...] ia 08-29 Route: l 14:01: IVP, ONCE, [place] 00 Dosing Weight 97.273, kg, PRN Nausea & Vomiting, Start date: 08/29/20 9:01:00 CDT Labetalol 2021-0 No 10 mg, Memori a 08-29 Route: l 14:01: IVP, [place] 00 Q5Min, Dosing Weight 97.273, kg, PRN [...] Memori a 08-29 Route: l 14:01: IVP, [place] 00 Q2MIN, Dosing Weight 97.273, kg, PRN [...] Drug form: l 10 13:15: INJ, Start [place] microgram date: 08/29/20 8:15:00 CDT, Stop date: 08/29/20 9:15:00 CDT norepinephr 2020-0 No Route: IV, Memoria ine (ANES) 08-29 Drug form: l 10 13:15: INJ, Start Marty microgram 00 date: 08/29/20 8:15:00 CDT, Stop date: 08/29/20 9:15:00 CDT norepinephr 2020-0 No Route: IV, Memoria ine (ANES) 08-29 Drug form: l 10 13:15: INJ, Start [place] microgram date: 08/29/20 8:15:00 CDT, Stop date: 08/29/20 9:15:00 CDT norepinephr 2020-0 No Route: IV, Memoria ine (ANES) 08-29 Drug form: l 10 13:15: INJ, Start [place] microgram 00 date: 08/29/20 8:15:00 CDT, Stop date: 08/29/20 9:15:00 CDT norepinephr 2020-0 No Route: IV, Memoria ine (ANES) Drug form: l 10 13:15: INJ, Start [place] microgram 00 date: 08/29/20 8:15:00 CDT, Stop date: 08/29/20 9:15:00 CDT Sodium 202-0 No Route: IV, Memor [...] 4-09 Total l 0.9% IV 12:30: Volume: [place] (ANES) 1000 00 1,000, mL Start date: 08/29/20 7:30:00 CDT, Stop date: 08/29/20 8:30:00 CDT Sodium 2021-0 No Route: IV, Memor ia Chloride 4-09 Total l 0.9% IV 12:30: Volume: [place] (ANES) 1000 00 1,000, mL Start date: [...] PO, l Hydrochlori 11:42: Q24H, # 30 [place] de 150 MG 00 tab, 0 Extended Refill(s) Release Tablet 24 HR Yes 150 mg = 1 Memori a Bupropion 4-09 tab, PO, l Hydrochlori 11:42: Q24H, # 30 Marty de 150 MG 00 tab, 0 Extended Refill(s) Release Tablet 24 HR Yes 150 mg = 1 Memori a Bupropion 4-09 tab, PO, l Hydrochlori 11:42: Q24H, # 30 [place] de 150 MG 00 tab, 0 Extended Refill(s) Release Tablet 24 HR Yes 150 mg = 1 Memori a Bupropion 4-09 tab, PO, l Hydrochlori 11:42: Q24H, # 30 [place] de 150 MG 00 tab, 0 Extended [...] 4- Q12H, tab, l Tablet 11:41: 0 [place] [Eliquis] 00 Refill(s), For Atrial Fibrilatio n apixaban 5 2020-0 Yes 5 mg, PO, Me moria MG Oral 4- Q12H, tab, l Tablet 11:41: 0 [place] [Eliquis] 00 Refill(s), For Atrial Fibrilatio n [...] 08-29 Q12H, tab, l Tablet 11:41: 0 [place] [Eliquis] 00 Refill(s), For Atrial Fibrilatio n AMIODarone 0 Yes 200 mg = 1 M emoria 200 mg oral -09 tab, PO, l tablet 11:38: Daily, # [place] 00 90 tab, 3 Refill(s) AMIODarone 2020-0 Yes 200 mg = 1 M emoria 200 mg oral -09 tab, PO, l tablet 11:38: Daily, # [place] 00 90 tab, 3 Refill(s) AMIODarone 2020-0 Yes 200 mg = 1 M emoria 200 mg oral -09 tab, PO, l tablet 11:38: Daily, # [place] 00 90 tab, 3 Refill(s) AMIODarone 2020-0 Yes 200 mg = 1 M emoria 200 mg oral 4-09 tab, PO, l tablet 11:38: Daily, # [place] 00 90 tab, 3 Refill(s) AMIODarone 2020-0 Yes 200 mg = 1 M emoria 200 mg oral 4-09 tab, PO, l tablet 11:38: Daily, # [place] 00 90 tab, 3 Refill(s) AMIODarone 2020-0 [...] tablet (Descovy) 00 200-25 MG tablet sertraline 0 Yes 200mg Q.5D Take 200 [...] Immunizations Ordered Filled Immunization Date Status Comments [facility] e Immunization Name Name SARS-COV-2 COVID-19 [...] SARS-COV-2 COVID-19 2022-03-05 Completed [facility]IIMTR[facility] [...] COVID-19 2020-07-23 Completed [facility]00 [facility] COVID-19 2020-07-23 Completed [facility] VACCINATION 00:00:00 [facility] PFIZER COVID-19 2020-07-23 Completed [facility] MRNA VACCINATION 00:00:00 [facility] PFIZER COVID-19 2020-07-23 Completed [facility] MRNA VACCINATION 00:00:00 [facility] PFIZER COVID-19 2020-07-23 Completed [facility] MRNA VACCINATION 00:00:00 [facility] PFIZER COVID-19 2020-07-23 Completed [facility] VACCINATION 00:00:00 [facility] PFIZER COVID-19 2020-07-23 Completed [facility] VACCINATION 00:00:00 [facility] PFIZER COVID-19 2020-07-23 Completed [facility] VACCINATION 00:00:00 [facility] PFIZER COVID-19 2020-07-23 Completed [facility] VACCINATION 00:00:00 [facility] PFIZER COVID-19 2020-07-23 Completed [facility] VACCINATION 00:00:00 [facility] PFIZER COVID-19 2020-07-23 Completed [facility] VACCINATION 00:00:00 [facility] PFIZER COVID-19 2020-07-23 Completed [facility] VACCINATION 00:00:00 [facility] PFIZER COVID-19 2020-07-23 Completed [facility]RNA VACCINATION 00:00:00 [facility] PFIZER COVID-19 2020-07-23 Completed [facility] VACCINATION 00:00:00 [facility] PFIZER COVID-19 2020-07-23 Completed [facility]RNA VACCINATION 00:00:00 [facility] PFIZER COVID-19 2020-07-23 Completed [facility] VACCINATION 00:00:00 [facility] PFIZER COVID-19 2020-07-23 Completed [facility]RNA VACCINATION 00:00:00 [facility] PFIZER COVID-19 2020-07-23 Completed [facility] VACCINATION 00:00:00 [facility] PFIZER COVID-19 2020-07-23 Completed [facility] VACCINATION 00:00:00 [facility] PFIZER COVID-19 2020-07-23 Completed [facility] VACCINATION 00:00:00 [facility] PFI[facility] COVID-19 2020-07-23 Completed [facility] VACCINATION 00:00:00 [facility] PFI[facility] COVID-19 2020-07-23 Completed [facility] VACCINATION 00:00:00 [facility] PFIZER COVID-19 2020-07-23 Completed [facility]RNA VACCINATION 00:00:00 [facility] SARS-COV-2 COVID-19 2020-07-23 Completed Unive rsity of PFIZER VACCINE 00:00:00 [facility] SARS-COV-2 COVID-19 2020-07-23 Completed Unive rsity of PFIZER VACCINE 00:00:00 [facility] SARS-COV-2 COVID-19 2020-07-23 Completed Unive rsity of PFIZER VACCINE 00:00:00 [facility] SARS-COV-2 COVID-19 2020-07-23 Completed Unive rsity of PFIZER VACCINE 00:00:00 [facility] SARS-COV-2 COVID-19 2020-07-23 Completed Unive rsity of PFIZER VACCINE 00:00:00 [facility] SARS-COV-2 COVID-19 2020-07-23 Completed Unive rsity of PFIZER VACCINE 00:00:00 [facility] SARS-COV-2 COVID-19 2020-07-23 Completed Unive rsity of PFIZER VACCINE 00:00:00 [facility] PFIZER COVID-19 2020-07-23 Completed [facility] VACCINATION 00:00:00 [facility] PFIZER COVID-19 2020-07-02 Completed [facility] MRNA VACCINATION 00:00:00 [facility] PFIZER COVID-19 2020-07-02 Completed [facility] MRNA VACCINATION 00:00:00 [facility] PFIZER COVID-19 2020-07-02 Completed [facility] VACCINATION 00:00:00 [facility] COVID-19 2020-07-02 Completed [facility] VACCINATION 00:00:00 [facility] COVID-19 2020-07-02 Completed [facility] VACCINATION 00:00:00 [facility] PFIZER COVID-19 2020-07-02 Completed [facility] MRNA VACCINATION 00:00:00 [facility] PFIZER COVID-19 2020-07-02 Completed [facility] MRNA VACCINATION 00:00:00 [facility] PFIZER COVID-19 2020-07-02 Completed [facility] MRNA VACCINATION 00:00:00 [facility] PFIZER COVID-19 2020-07-02 Completed [facility] MRNA VACCINATION 00:00:00 [facility] PFIZER COVID-19 2020-07-02 Completed [facility] MRNA VACCINATION 00:00:00 [facility] PFIZER COVID-19 2020-07-02 Completed [facility] MRNA VACCINATION 00:00:00 [facility] PFIZER COVID-19 2020-07-02 Completed [facility] MRNA VACCINATION 00:00:00 [facility] PFIZER COVID-19 2020-07-02 Completed [facility] MRNA VACCINATION 00:00:00 [facility] PFIZER COVID-19 2020-07-02 Completed [facility] MRNA VACCINATION 00:00:00 [facility] PFIZER COVID-19 2020-07-02 Completed [facility] MRNA VACCINATION 00:00:00 [facility] PFIZER COVID-19 2020-07-02 Completed [facility] MRNA VACCINATION 00:00:00 [facility] PFIZER COVID-19 2020-07-02 Completed [facility] MRNA VACCINATION 00:00:00 [facility] PFIZER COVID-19 2020-07-02 Completed [facility] MRNA VACCINATION 00:00:00 [facility] PFIZER COVID-19 2020-07-02 Completed [facility] MRNA VACCINATION 00:00:00 [facility] PFIZER COVID-19 2020-07-02 Completed [facility] MRNA VACCINATION 00:00:00 [facility] PFIZER COVID-19 2020-07-02 Completed [facility] MRNA VACCINATION 00:00:00 [facility] PFIZER COVID-19 2020-07-02 Completed [facility] MRNA VACCINATION 00:00:00 [facility] PFIZER COVID-19 2020-07-02 Completed [facility] MRNA VACCINATION 00:00:00 [facility] SARS-COV-2 COVID-19 2020-07-02 Completed Unive rsity of PFIZER VACCINE 00:00:00 [facility] SARS-COV-2 COVID-19 2020-07-02 Completed Unive rsity of PFIZER VACCINE 00:00:00 [facility] SARS-COV-2 COVID-19 2020-07-02 Completed Unive rsity of PFIZER VACCINE 00:00:00 [facility] SARS-COV-2 COVID-19 2020-07-02 Completed Unive rsity of PFIZER VACCINE 00:00:00 [facility] SARS-COV-2 COVID-19 2020-07-02 Completed Unive rsity of PFIZER VACCINE 00:00:00 [facility] SARS-COV-2 COVID-19 2020-07-02 Completed Unive rsity of PFIZER VACCINE 00:00:00 [facility] SARS-COV-2 COVID-19 2020-07-02 Completed Unive rsity of PFIZER VACCINE 00:00:00 [facility] PFIZER COVID-19 2020-07-02 Completed [facility] MRNA VACCINATION 00:00:00 [facility] Influenza Virus 2017-03-08 Completed Universit y of Vaccine 00:00:00 [facility] Influenza Virus 2017-03-08 Completed [facility]it y of Vaccine 00:00:00 [facility] Influenza Virus 2017-03-08 Completed [facility]it y of Vaccine 00:00:00 [facility] Influenza Virus 2017-03-08 Completed [facility]it y of Vaccine 00:00:00 [facility] Influenza Virus 2017-03-08 Completed [facility] of Vaccine 00:00:00 [facility] Influenza Virus 2017-03-08 Completed [facility] of Vaccine 00:00:00 [facility] Influenza Virus 2017-03-08 Completed [facility] of Vaccine 00:00:00 [facility] Influenza Virus 2017-03-08 Completed [facility] y of Vaccine 00:00:00 [facility] Influenza Virus 2017-03-08 Completed [facility] of Vaccine 00:00:00 [facility] Influenza Virus 2017-03-08 Completed [facility]it y of Vaccine 00:00:00 [facility] Influenza Virus 2017-03-08 Completed [facility]it y of Vaccine 00:00:00 [facility] Influenza Virus 2014-01-30 Completed [facility]it y [facility] Vaccine (3+ yrs) 00:00[facility]00 [facility] Pneumococcal 13 2014-01-30 Completed Universit y of Conjugate, PCV13 00:00:00 [facility] dical (Prevnar 13) Branch Influenza Virus 2014-01-30 Completed Universit y of Vaccine (3+ yrs) 00:00:00 [facility] dical Branch Pneumococcal 13 2014-01-30 Completed Universit y of Conjugate, PCV13 00:00:00 [facility] dical (Prevnar 13) Branch Influenza Virus 2014-01-30 Completed Universit y of Vaccine (3+ yrs) 00:00:00 [facility] dical Branch Pneumococcal 13 2014-01-30 Completed Universit y of Conjugate, PCV13 00:00:00 [place] [facility] (Prevnar 13) Branch Influenza Virus 2014-01-30 Completed Universit y of Vaccine (3+ yrs) 00:00:00 [facility] Pneumococcal 13 2014-01-30 Completed Universit y of Conjugate, PCV13 00:00:00 [facility] dical (Prevnar 13) Branch Influenza Virus 2014-01-30 Completed Universit y of Vaccine (3+ yrs) 00:00:00 [facility] dical Branch Pneumococcal 13 2014-01-30 Completed Universit y of Conjugate, PCV13 00:00:00 [facility] dical (Prevnar 13) Branch Influenza Virus 2014-01-30 Completed Universit y of Vaccine (3+ yrs) 00:00:00 [facility] dical Branch Pneumococcal 13 2014-01-30 Completed Universit y of Conjugate, PCV13 00:00:00 [facility] dical (Prevnar 13) Branch Influenza Virus 2014-01-30 Completed Universit y of Vaccine (3+ yrs) 00:00:00 [facility] dical Branch Pneumococcal 13 2014-01-30 Completed Universit y of Conjugate, PCV13 00:00:00 [facility] dical (Prevnar 13) Branch Influenza Virus 2014-01-30 Completed Universit y of Vaccine (3+ yrs) 00:00:00 [facility] dical Branch Pneumococcal 13 2014-01-30 Completed Universit y of Conjugate, PCV13 00:00:00 [facility] dical (Prevnar 13) Branch Influenza Virus 2014-01-30 Completed Universit y of Vaccine (3+ yrs) 00:00:00 [facility] dical Branch Pneumococcal 13 2014-01-30 Completed Universit y of Conjugate, PCV13 00:00:00 [facility] dical (Prevnar 13) Branch Influenza Virus 2014-01-30 Completed Universit y of Vaccine (3+ yrs) 00:00:00 [facility] dical Branch Pneumococcal 13 2014-01-30 Completed Universit y of Conjugate, PCV13 00:00:00 [facility] dical (Prevnar 13) Branch Influenza Virus 2014-01-30 Completed Universit y of Vaccine (3+ yrs) 00:00:00 [facility] d[facility] Branch Pneumococcal 13 2014-01-30 Completed Universit y of Conjugate, PCV13 00:00:00 [facility] dical (Prevnar 13) Branch Pneumococcal 2012-02-16 Completed University o f Polysaccharide, 00:00:00 [place] [facility] PPSV23 (PNEUMOVAX) Branch Influenza Virus 2012-02-16 Completed Universit y of Vaccine 00:00:00 [facility] PPD (TB) 2012-02-16 Completed University of 00:00:00 [facility] Pneumococcal 2012-02-16 Completed University o f Polysaccharide, 00:00:00 [place] [facility] PPSV23 (PNEUMOVAX) Branch Influenza Virus 2012-02-16 Completed Universit y of Vaccine 00:00:00 [facility] PPD (TB) 2012-02-16 Completed University of 00:00:00 [facility] Pneumococcal 2012-02-16 Completed University o f Polysaccharide, 00:00:00 [place] [facility] PPSV23 (PNEUMOVAX) Branch Influenza Virus 2012-02-16 Completed Universit y of Vaccine 00:00:00 [facility] PPD (TB) 2012-02-16 Completed University of 00:00:00 [facility] Pneumococcal 2012-02-16 Completed University o f Polysaccharide, 00:00:00 [place] [facility] PPSV23 (PNEUMOVAX) Branch Influenza Virus 2012-02-16 Completed Universit y of Vaccine 00:00:00 [facility] PPD (TB) 2012-02-16 Completed University of 00:00:00 [facility] Pneumococcal 2012-02-16 Completed University o f Polysaccharide, 00:00:00 [place] [facility] PPSV23 (PNEUMOVAX) Branch Influenza Virus 2012-02-16 Completed Universit y of Vaccine 00:00:00 [facility] PPD (TB) 2012-02-16 Completed University of 00:00:00 [facility] Pneumococcal 2012-02-16 Completed University o f Polysaccharide, 00:00:00 [place] [facility] PPSV23 (PNEUMOVAX) Branch Influenza Virus 2012-02-16 Completed [facility]it y of Vaccine 00:00:00 [facility] PPD (TB) 2012-02-16 Completed University of 00:00:00 [facility] Pneumococcal 2012-02-16 Completed University o f Polysaccharide, 00:00:00 [place] [facility] PPSV23 (PNEUMOVAX) Branch Influenza Virus 2012-02-16 Completed Universit y of Vaccine 00:00:00 [facility] PPD (TB) 2012-02-16 Completed University of 00:00:00 [facility] Pneumococcal 2012-02-16 Completed University o f Polysaccharide, 00:00:00 [place] [facility] PPSV23 (PNEUMOVAX) Branch Influenza Virus 2012-02-16 Completed [facility]it y of Vaccine 00:00:00 [facility] PPD (TB) 2012-02-16 Completed University of 00:00:00 [facility] Pneumococcal 2012-02-16 Completed University o f Polysaccharide, 00:00:00 [place] [facility] PPSV23 (PNEUMOVAX) Branch Influenza Virus 2012-02-16 Completed [facility]it [facility] of Vaccine 00:00:00 [facility] PPD (TB) 2012-02-16 Completed University of 00:00:00 [facility] Pneumococcal 2012-02-16 Completed University o f Polysaccharide, 00:00:00 [place] [facility] PPSV23 (PNEUMOVAX) Branch Influenza Virus 2012-02-16 Completed Universit y of Vaccine 00:00:00 [facility] PPD (TB) 2012-02-16 Completed University of 00:00:00 [facility] Pneumococcal 2012-02-16 Completed University o f Polysaccharide, 00:00:00 [place] [facility] PPSV23 (PNEUMOVAX) Branch Influenza Virus 2012-02-16 Completed Universit y of Vaccine 00:00:00 [facility] PPD (TB) 2012-02-16 Completed University of 00:00:00 [facility] Hep B, Adol or Pedi 2011-09-01 Completed Unive rsity of Dosage 00:00:00 [facility] Hep B, Adol or Pedi 2011-09-01 Completed Unive rsity of Dosage 00:00:00 [facility] Hep B, Adol or Pedi 2011-09-01 Completed Unive rsity of Dosage 00:00:00 [facility] Hep B, Adol or Pedi 2011-09-01 Completed Unive rsity of Dosage 00:00:00 [facility] Hep B, Adol or Pedi 2011-09-01 Completed Unive rsity of Dosage 00:00:00 [facility] Hep B, Adol or Pedi 2011-09-01 Completed Unive rsity of Dosage 00:00:00 [facility] Hep B, Adol or Pedi 2011-09-01 Completed Unive rsity of Dosage 00:00:00 [facility] Hep B, Adol or Pedi 2011-09-01 Completed Unive rsity of Dosage 00:00:00 [facility] Hep B, Adol or Pedi 2011-09-01 Completed Unive rsity of Dosage 00:00:00 [facility] Hep B, Adol or Pedi 2011-09-01 Completed Unive rsity of Dosage 00:00:00 [facility] Hep B, Adol or Pedi 2011-09-01 Completed Unive rsity of Dosage 00:00:00 [facility] Hep B, Adol or Pedi 2011-03-17 Completed Unive rsity of Dosage 00:00:00 [facility] Hep B, Adol or Pedi 2011-03-17 Completed Unive rsity of Dosage 00:00:00 [facility] Hep B, Adol or Pedi 2011-03-17 Completed Unive rsity of Dosage 00:00:00 [facility] Hep B, Adol or Pedi 2011-03-17 Completed Unive rsity of Dosage 00:00:00 [facility] Hep B, Adol or Pedi 2011-03-17 Completed Unive rsity of Dosage 00:00:00 [facility] Hep B, Adol or Pedi 2011-03-17 Completed Unive rsity of Dosage 00:00:00 [facility] Hep B, Adol or Pedi 2011-03-17 Completed Unive rsity of Dosage 00:00:00 [facility] Hep B, Adol or Pedi 2011-03-17 Completed Unive rsity of Dosage 00:00:00 [facility] Hep B, Adol or Pedi 2011-03-17 Completed Unive rsity of Dosage 00:00:00 [facility] Hep B, Adol or Pedi 2011-03-17 Completed Unive rsity of Dosage 00:00:00 [facility] Hep B, Adol or Pedi 2011-03-17 Completed Unive rsity of Dosage 00:00:00 [facility] Influenza Virus 2011-02-10 Completed Universit [facility] of Vaccine 00:00:00 [facility] Hep B, Adol or Pedi 2011-02-10 Completed Unive rsity of Dosage 00:00:00 [facility] Influenza Virus 2011-02-10 Completed [facility]it [facility] of Vaccine 00:00:00 [facility] Hep B, Adol or Pedi 2011-02-10 Completed Unive rsity of Dosage 00:00:00 [facility] Influenza Virus 2011-02-10 Completed [facility] of Vaccine 00:00:00 [facility] Hep B, Adol or Pedi 2011-02-10 Completed Unive rsity of Dosage 00:00:00 [facility] Influenza Virus 2011-02-10 Completed [facility] of Vaccine 00:00:00 [facility] Hep B, Adol or Pedi 2011-02-10 Completed [facility]ive rsity of Dosage 00:00:00 [facility] Influenza Virus 2011-02-10 Completed [facility] of Vaccine 00:00:00 [facility] Hep B, Adol or Pedi 2011-02-10 Completed [facility]ive rsity of Dosage 00:00:00 [facility] Influenza Virus 2011-02-10 Completed [facility] of Vaccine 00:00:00 [facility] Hep B, Adol or Pedi 2011-02-10 Completed Unive rsity of Dosage 00:00:00 [facility] Influenza Virus 2011-02-10 Completed [facility] of Vaccine 00:00:00 [facility] Hep B, Adol or Pedi 2011-02-10 Completed Unive rsity of Dosage 00:00:00 [facility] Influenza Virus 2011-02-10 Completed [facility] of Vaccine 00:00:00 [facility] Hep B, Adol or Pedi 2011-02-10 Completed Unive rsity of Dosage 00:00:00 [facility] Influenza Virus 2011-02-10 Completed [facility] of Vaccine 00:00:00 [facility] Hep B, Adol or Pedi 2011-02-10 Completed Unive rsity of Dosage 00:00:00 [facility] Influenza Virus 2011-02-10 Completed [facility] of Vaccine 00:00:00 [facility] Hep B, Adol or Pedi 2011-02-10 Completed Unive rsity of Dosage 00:00:00 [facility] Influenza Virus 2011-02-10 Completed [facility] of Vaccine 00:00:00 [facility] Hep B, Adol or Pedi 2011-02-10 Completed [facility]ive rsity of Dosage 00:00:00 [facility] PPD (TB) 2010-11-18 Completed University of 00:00:00 [facility] TDAP (ADACEL) 2010-11-18 Completed University of VACCINE 00:00:00 [facility] PPD (TB) 2010-11-18 Completed University of 00:00:00 [facility] TDAP (ADACEL) 2010-11-18 Completed University of VACCINE 00:00:00 [facility] PPD (TB) 2010-11-18 Completed [facility] of 00:00:00 [facility] TDAP (ADACEL) 2010-11-18 Completed University of VACCINE 00:00:00 [facility] PPD (TB) 2010-11-18 Completed University of 00:00:00 [facility] TDAP (ADACEL) 2010-11-18 Completed University of VACCINE 00:00:00 [facility] PPD (TB) 2010-11-18 Completed University of 00:00:00 [facility] TDAP (ADACEL) 2010-11-18 Completed University of VACCINE 00:00:00 [facility] PPD (TB) 2010-11-18 Completed University of 00:00:00 [facility] TDAP (ADACEL) 2010-11-18 Completed University of VACCINE 00:00:00 [facility] PPD (TB) 2010-11-18 Completed [facility] of 00:00:00 [facility] TDAP (ADACEL) 2010-11-18 Completed University of VACCINE 00:00:00 [facility] PPD (TB) 2010-11-18 Completed [facility] of 00:00:00 [facility] TDAP (ADACEL) 2010-11-18 Completed University of VACCINE 00:00:00 [facility] PPD (TB) 2010-11-18 Completed [facility] of 00:00:00 [facility] TDAP (ADACEL) 2010-11-18 Completed University of VACCINE 00:00:00 [facility] PPD (TB) 2010-11-18 Completed University of 00:00:00 [facility] TDAP (ADACEL) 2010-11-18 Completed University of VACCINE 00:00:00 [facility] PPD (TB) 2010-11-18 Completed [facility] of 00:00:00 [facility] TDAP (ADACEL) 2010-11-18 Completed University of VACCINE 00:00:00 [facility] HEPATITIS A 2004-03-02 Completed University of 00:00:00 [facility] HEPATITIS A 2004-03-02 Completed University of 00:00:00 [facility] HEPATITIS A 2004-03-02 Completed University of 00:00:00 [facility] HEPATITIS A 2004-03-02 Completed University of 00:00:00 [facility] HEPATITIS A 2004-03-02 Completed University of 00:00:00 [facility] HEPATITIS A 2004-03-02 Completed University of 00:00:00 [facility] HEPATITIS A 2004-03-02 Completed [facility] of 00:00:00 [facility] HEPATITIS A 2004-03-02 Completed [facility] of 00:00:00 [facility] HEPATITIS A 2004-03-02 Completed [facility] of 00:00:00 [facility] HEPATITIS A 2004-03-02 Completed [facility] of 00:00:00 [facility] HEPATITIS A 2004-03-02 Completed [facility] of 00:00:00 [facility] HEPATITIS A 2003-08-01 Completed [facility] of 00:00:00 [facility] HEPATITIS A 2003-08-01 Completed [facility] of 00:00:00 [facility] HEPATITIS A 2003-08-01 Completed [facility] of 00:00:00 [facility] HEPATITIS A 2003-08-01 Completed [facility] of 00:00:00 [facility] HEPATITIS A 2003-08-01 Completed [facility] of 00:00:00 [facility] HEPATITIS A 2003-08-01 Completed [facility] of 00:00:00 [facility] HEPATITIS A 2003-08-01 Completed [facility] of 00:00:00 [facility] HEPATITIS A 2003-08-01 Completed [facility] of 00:00:00 [facility] HEPATITIS A 2003-08-01 Completed [facility] of 00:00:00 [facility] HEPATITIS A 2003-08-01 Completed [facility] of 00:00:00 [facility] HEPATITIS A 2003-08-01 Completed University of 00:00:00 [facility] Pneumococcal 2001-10-04 Completed University o f Polysaccharide, 00:00:00 [place] [facility] PPSV23 (PNEUMOVAX) Branch PPD (TB) 2001-10-04 Completed [facility] of 00:00:00 [facility] Pneumococcal 2001-10-04 Completed University o f Polysaccharide, 00:00:00 [place] [facility] PPSV23 (PNEUMOVAX) [facility] PPD (TB) 2001-10-04 Completed [facility] of 00:00:00 [facility] Pneumococcal 2001-10-04 Completed University o f Polysaccharide, 00:00:00 [place] [facility] PPSV23 (PNEUMOVAX) Branch PPD (TB) 2001-10-04 Completed University of 00:00:00 [facility] Pneumococcal 2001-10-04 Completed University o f Polysaccharide, 00:00:00 [place] [facility] PPSV23 (PNEUMOVAX) Branch PPD (TB) 2001-10-04 Completed [facility] of 00:00:00 [facility] Pneumococcal 2001-10-04 Completed University o f Polysaccharide, 00:00:00 [place] [facility] PPSV23 (PNEUMOVAX) Branch PPD (TB) 2001-10-04 Completed [facility] of 00:00:00 [facility] Pneumococcal 2001-10-04 Completed University o f Polysaccharide, 00:00:00 [place] [facility] PPSV23 (PNEUMOVAX) Branch PPD (TB) 2001-10-04 Completed [facility] of 00:00:00 [facility] Pneumococcal 2001-10-04 Completed University o f Polysaccharide, 00:00:00 [place] [facility] PPSV23 (PNEUMOVAX) Branch PPD (TB) 2001-10-04 Completed [facility] of 00:00:00 [facility] Pneumococcal 2001-10-04 Completed University o f Polysaccharide, 00:00:00 [place] [facility] PPSV23 (PNEUMOVAX) Branch PPD (TB) 2001-10-04 Completed [facility] of 00:00:00 [facility] Pneumococcal 2001-10-04 Completed University o f Polysaccharide, 00:00:00 [place] [facility] PPSV23 (PNEUMOVAX) Branch PPD (TB) 2001-10-04 Completed [facility] of 00:00:00 [facility] Pneumococcal 2001-10-04 Completed University o f Polysaccharide, 00:00:00 [place] [facility] PPSV23 (PNEUMOVAX) Branch PPD (TB) 2001-10-04 Completed [facility] of 00:00:00 [facility] Pneumococcal 2001-10-04 Completed University o f Polysaccharide, 00:00:00 [place] [facility] PPSV23 (PNEUMOVAX) Branch PPD (TB) 2001-10-04 Completed [facility] of 00:00:00 [facility] Vital Signs Vital Name Observation Time Observation Value Comments Source Systolic blood 2022-04-22 19:50:00 156 mm[Hg] Univer sity of pressure [facility] Diastolic blood 2022-04-22 19:50:00 89 mm[Hg] Unive rsity of pressure [facility] Heart rate 2022-04-22 19:50:00 69 /min [facility] Body temperature 2022-04-22 19:50:[address] [facility] 2022-04-22 19:50:00 17 /min [facility] Body height 2022-04-22 19:50:00 162.6 cm [facility] Body weight 2022-04-22 19:50:00 80.74 kg [facility] [place] [facility] BMI 2022-04-22 19:50:00 30.55 kg/m2 [facility] [place] [facility] Oxygen saturation in 2022-04-22 19:50:00 96 /min University of Arterial blood by [facility] Pulse oximetry Branch Systolic blood 2022-03-05 15:23:00 167 mm[Hg] Univer sity of pressure [facility] Diastolic blood 2022-03-05 15:23:00 105 mm[Hg] Unive rsity of pressure [facility] Heart rate 2022-03-05 15:23:00 49 /min [facility] Body temperature 2022-03-05 15:18:00 36.67 Amina [facility] ers[facility] [place] [facility] Respiratory rate 2022-03-05 15:18:00 18 /min [facility] Body height 2022-03-05 15:18:00 162.6 cm [facility] [place] [facility] Body weight 2022-03-05 15:18:00 74.707 kg [facility] [place] [facility] BMI 2022-03-05 15:18:00 28.27 kg/m2 [facility] [place] [facility] Systolic blood 2022-02-16 21:41:00 169 mm[Hg] Univer sity of pressure [facility] Diastolic blood 2022-02-16 21:41:00 86 mm[Hg] Unive rsity of pressure [facility] Heart rate 2022-02-16 21:41:00 51 /min [facility] [place] [facility] Body temperature 2022-02-16 21:41:00 36.56 Amina [facility] [place] [facility] Respiratory rate 2022-02-16 21:41:00 17 /min Univ ersity [facility] [place] [facility] Oxygen saturation in 2022-02-16 21:41:00 98 /min [facility] of Arterial blood by [facility] Pulse oximetry Branch Body height 2022-02-11 16:02:00 162.6 cm [facility] Body weight 2022-02-11 16:02:00 79.379 kg [facility] [place] [facility] BMI 2022-02-11 16:02:00 30.04 kg/m2 [facility] [place] [facility] Systolic blood 2021-11-20 13:47:00 165 mm[Hg] Univer sity of pressure [facility] Diastolic blood 2021-11-20 13:47:00 83 mm[Hg] Unive rsity of pressure [facility] Heart rate 2021-11-20 13:47:00 58 /min [facility] [place] [facility] Body temperature 2021-11-20 13:42:00 36.39 Amina [facility] [place] [facility] Respiratory rate 2021-11-20 13:42:00 16 /min Univ ers[facility] [place] [facility] Body height 2021-11-20 13:42:00 162.6 cm [facility] [place] [facility] Body weight 2021-11-20 13:42:00 84.369 kg [facility] [place] [facility] BMI 2021-11-20 13:42:00 31.93 kg/m2 [facility] [place] [facility] Systolic blood 2021-07-14 15:18:00 142 [...] 15:23:00 167 mm[Hg] Univer sity of pressure [facility] Diastolic blood 2022-03-05 15:23:00 105 mm[Hg] Unive rsity of pressure [facility] Heart rate 2022-03-05 15:23:00 49 /min [facility] Body temperature 2022-03-05 15:18:00 36.67 Amina [facility] [place] [facility] Respiratory rate 2022-03-05 15:18:00 18 /min Univ [facility] [place] [facility] Body height 2022-03-05 15:18:00 162.6 cm [facility] [place] [facility] Body weight 2022-03-05 15:18:00 74.707 kg [facility] [place] [facility] BMI 2022-03-05 15:18:00 28.27 kg/m2 [facility] Oxygen saturation in 2022-02-16 21:41:00 98 /min University Arterial blood by [facility] Pulse oximetry Branch Systolic blood 2020-12-08 15:48:00 125 mm[Hg] Method [facility] pressure Diastolic blood 2020-12-08 15:48:00 76 mm[Hg] [facility] pressure Heart rate 2020-12-08 15:48:00 64 /min [facility] Body temperature 2020-12-08 15:48:00 36.61 Amina [facility] Respiratory rate 2020-12-08 15:48:00 17 /min [facility] Body height 2020-12-08 15:48:00 162.6 cm [facility] Body weight 2020-12-08 15:48:00 98.884 kg [facility] BMI 2020-12-08 15:48:00 37.42 kg/m2 [facility] Oxygen saturation in 2020-12-08 15:48:00 97 /min [facility] Arterial blood by Pulse oximetry Respitory Rate 2020-08-30 13:00:00 Memori al [place] Systolic (mm Hg) 2020-08-30 13:00:00 Caesar rial Marty Diastolic (mm Hg) 2020-08-30 13:00:00 Mem orial Marty Systolic (mm Hg) 2020-08-30 11:00:00 Caesar rial Marty Diastolic (mm Hg) 2020-08-30 11:00:00 Mem orial [place] Temperature Oral (F) 2020-08-30 11:00:00 98.4 F [facility] [place] Respitory Rate 2020-08-30 11:00:00 Memori al Marty Respitory Rate 2020-08-30 10:00:00 Memori al [place] Systolic (mm Hg) 2020-08-30 10:00:00 Caesar rial Marty Diastolic (mm Hg) 2020-08-30 10:00:00 Mem orial Marty Temperature Oral (F) 2020-08-30 00:00:00 96.9 F [facility] Temperature Oral (F) 2020-08-29 11:26:00 97.6 F [facility] [place] Height 2020-08-29 10:30:00 162.56 cm [facility] Weight 2020-08-29 10:30:00 [facility] BMI Calculated 2020-08-29 10:30:00 [place] Hammond Procedures Procedure Date / Time Performing Clinician Source Performed BASIC METABOLIC PANEL (NA, 2022-04-22 21:23:00 Paulette Gray [facility] K, CL, CO2, GLUCOSE, BUN, Medica l Branch CREATININE, [place]) CBC WITH DIFF 2022-04-22 21:23:00 Paulette Gray [facility] CONSENT/REFUSAL FOR 2022-04-22 19:45:46 [facility] [place] [facility] SARS-COV-2 COVID-19 2022-03-05 16:09:27 [facility] DIMITRIS-SUCROSE VACCINE [address] [place] [address] YRS+, BIVALENT 0.3ML, IM, (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) FLU 2022-03-05 16:09:27 [facility] VACC(),65+YR,0.5 Medica l Branch ML,IM,ADJUVANTED,QUAD(FLUA D) FLU 2022-03-05 16:09:27 [facility] VACC(),65+YR,0.5 Medica l Branch ML,IM,ADJUVANTED,QUAD(FLUA D) SARS-COV-2 COVID-19 2022-03-05 16:09:27 [facility] DIMITRIS-SUCROSE VACCINE [address] [place] [address] YRS+, BIVALENT 0.3ML, IM, (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) MAGNESIUM 2022-02-15 09:41:[address] [facility] BASIC METABOLIC PANEL (NA, 2022-02-15 09:41:00 Sofia Garcia [facility] K, CL, CO2, GLUCOSE, BUN, Medica l Branch CREATININE, CA) CBC WITH DIFF 2022-02-15 09:41:[address] [facility] N-TERMINAL PRO-BNP 2022-02-15 09:41:00 Sofia Garcia [facility] CBC WITH DIFF 2022-02-15 09:41:[address] [facility] BASIC METABOLIC PANEL (NA, 2022-02-15 09:41:00 Sofia Garcia [facility] K, CL, CO2, GLUCOSE, BUN, Medica l Branch CREATININE, CA) MAGNESIUM 2022-02-15 09:41:[address] [facility] N-TERMINAL PRO-BNP 2022-02-15 09:41:00 Sofia Garcia [facility] BASIC METABOLIC PANEL (NA, 2022-02-13 09:40:00 Sofia Garcia [facility] K, CL, CO2, GLUCOSE, BUN, Medica l Branch CREATININE, CA) CBC WITH DIFF 2022-02-13 09:40:[address] [facility] BASIC METABOLIC PANEL (NA, 2022-02-13 09:40:00 Sofia Garcia [facility] K, CL, CO2, GLUCOSE, BUN, Medica l Branch CREATININE, CA) CBC WITH DIFF 2022-02-13 09:40:00 Radha [facility] TROPONIN I 2022-02-11 23:41:00 Radha [facility] N-TERMINAL PRO-BNP 2022-02-11 23:41:00 Sofia Garcia [facility] TROPONIN I 2022-02-11 23:41:00 [facility] 2022-02-11 23:41:00 Sofia Garcia [facility] HB ECG ROUTINE & RHYTHM 2022-02-11 22:15:36 [facility] 2022-02-11 21:26:50 [facility] (TTE) 2022-02-11 21:26:50 [facility] 2022-02-11 07:45:43 Reilly Means [facility] CT ABDOMEN PELVIS W 2022-02-11 07:45:43 Reilly Means [facility] RAPID INFLUENZA A/B 2022-02-11 06:54:00 Reilly Means [facility] RAPID INFLUENZA A/B 2022-02-11 06:54:00 Reilly Means [facility] URINALYSIS 2022-02-11 06:45:00 Reilly Means [facility] URINE CULTURE 2022-02-11 06:45:00 Reilly Means [facility] URINALYSIS 2022-02-11 06:45:00 Reilly Means [facility] URINE CULTURE 2022-02-11 06:45:00 Reilly Means [facility] HB ECG ROUTINE & RHYTHM 2022-02-11 05:22:08 Reilly Means [facility] HB ECG ROUTINE & RHYTHM 2022-02-11 05:22:08 Reilly Means [facility] BLOOD CULTURE SCREEN 2022-02-11 04:58:00 Reilly Means [facility] TROPONIN I 2022-02-11 04:58:00 Reilly Means [facility] COMP. METABOLIC PANEL 2022-02-11 04:58:00 Reilly Means [facility] ([id number]) Medical Branch CBC WITH DIFF 2022-02-11 04:58:00 Reilly Means [facility] PROTHROMBIN TIME / INR 2022-02-11 04:58:00 Reilly Means [facility] ACTIVATED PARTIAL THRMPLAS 2022-02-11 04:58:00 Reilly Means [facility] N-TERMINAL PRO-BNP 2022-02-11 04:58:00 Reilly Means [facility] LACTIC ACID WHOLE BLOOD 2022-02-11 04:58:00 Reilly Means [facility] COVID-19 (ID NOW RAPID 2022-02-11 04:58:00 [facility] TEST[facility]) Medical Branch LAB ONLY COVID 2022-02-11 04:58:00 Reilly Means [facility] CBC WITH DIFF 2022-02-11 04:58:00 Reilly Means [facility] ACTIVATED PARTIAL THRMPLAS 2022-02-11 04:58:00 Reilly Means [facility] AMADOU [facility] PROTHROMBIN TIME / INR 2022-02-11 04:58:00 Reilly Means [facility] COVID-19 (ID NOW RAPID 2022-02-11 04:58:00 [facility] TESTING) Medical Branch COMP. METABOLIC PANEL 2022-02-11 04:58:00 Reilly Means [facility] ([id number]) Medical [place] TROPONIN I 2022-02-11 04:58:00 Reilly Means [facility] N-TERMINAL PRO-BNP 2022-02-11 04:58:00 Reilly Means [facility] BLOOD CULTURE SCREEN 2022-02-11 04:58:00 Reilly Means [facility] LACTIC ACID WHOLE BLOOD 2022-02-11 04:58:00 Reilly Means [facility] LAB ONLY COVID 2022-02-11 04:58:00 Reilly Means [facility] XR CHEST 1 VW 2022-02-11 04:27:42 Miguelangel Reilly [facility] XR CHEST 1 VW 2022-02-11 04:27:42 Miguelangel [facility] HOSPITAL ADMISSION 2022-02-10 05:01:00 Doctor Unassigned, [facility] [place] [facility] [place] HOSPITAL ADMISSION 2022-02-10 05:01:00 Doctor Unassigned, [facility] [place] Medical [facility] ECG 12-LEAD 2021-07-14 15:14:00 Elan Lira [facility] [id number] 2021-06-17 00:00:00 RASSA [facility] GASTROINTESTINAL PANEL 2020-12-08 22:21:00 Eliseo Arce [facility] XR ABDOMEN 1 VW 2020-12-08 18:06:32 Eliseo Arce spital OR [place] < 1 HOUR 2020-09-05 22:39:00 Eliseo Arce spital SURGICAL PATHOLOGY REQUEST 2020-09-05 21:54:00 Eliseo Arce [facility] XR CHEST 1 VW PORTABLE 2020-09-05 19:55:00 Eliseo Arce [facility] DISCHARGE PATIENT 2020-09-05 17:27:55 Lucas Harris [facility] [place] AN ELECTIVE 2020-09-05 16:47:23 Kirit Flood [address] [facility] [place] ENDOTRACHEAL AIRWAY EGD, INTRAOPERATIVE 2020-09-05 16:27:00 [facility] 2020-09-05 15:04[facility]00 [facility] TIME (PTT) M. PROTHROMBIN TIME WITH INR 2020-09-05 15:04:00 Mindy Maharaj [facility] M. Plan of Care Planned Activity Planned Date Details Comments Source Future Scheduled 2022-04-30 SHINGLES VACCINES (1 [facility] Test 01:07:32 of 2) [code = SHINGLES VACCINES (1 of 2)] Future Scheduled 2022-04-30 BREAST CANCER [facility] Test 01:07:32 SCREENING [code = BREAST CANCER SCREENING] Future Scheduled 2022-04-30 COLONOSCOPY SCREENING [facility] Test 01:07:32 [code = COLONOSCOPY SCREENING] Future Scheduled 2022-04-30 HEPATITIS B VACCINES [facility] Test 01:07:32 (1 of 3 - Risk 3-dose series) [code = HEPATITIS B VACCINES (1 of 3 - Risk 3-dose series)] Future Scheduled 2022-04-30 COVID-19 VACCINE (3 - [facility] Test 01:07:32 Booster for Pfizer series) [code = COVID-19 VACCINE (3 - Booster for Pfizer series)] Future Scheduled 2022-04-30 65+ PNEUMOCOCCAL [facility] [place] [place] Test 01:07:32 VACCINE (4 - PPSV23 if available, else PCV20) [code = 65+ PNEUMOCOCCAL VACCINE (4 - PPSV23 if available, else PCV20)] Future Scheduled 2022-04-30 INFLUENZA VACCINE Method [facility] Test 01:07:32 [code = INFLUENZA VACCINE] Future Scheduled 2022-04-25 SHINGLES VACCINES (1 [facility] Test 01:45:02 of 2) [code = SHINGLES VACCINES (1 of 2)] Future Scheduled 2022-04-25 BREAST CANCER [facility] Test 01:45:02 SCREENING [code = BREAST CANCER SCREENING] Future Scheduled 2022-04-25 COLONOSCOPY SCREENING [facility] Test 01:45:02 [code = COLONOSCOPY SCREENING] Future Scheduled 2022-04-25 HEPATITIS B VACCINES [facility] Test 01:45:02 (1 of 3 - Risk 3-dose series) [code = HEPATITIS B VACCINES (1 of 3 - Risk 3-dose series)] Future Scheduled 2022-04-25 COVID-19 VACCINE (3 - [facility] Test 01:45:02 Booster for Pfizer series) [code = COVID-19 VACCINE (3 - Booster for Pfizer series)] Future Scheduled 2022-04-25 65+ PNEUMOCOCCAL [facility] Test 01:45:02 VACCINE (4 - PPSV23 if available, else PCV20) [code = 65+ PNEUMOCOCCAL VACCINE (4 - PPSV23 if available, else PCV20)] Future Scheduled 2022-04-25 INFLUENZA VACCINE Method [facility] Test 01:45:02 [code = INFLUENZA VACCINE] Future Scheduled 2022-03-25 SHINGLES VACCINES (1 [facility] Test 14:48:42 of 2) [code = SHINGLES VACCINES (1 of 2)] Future Scheduled 2022-03-25 BREAST CANCER [facility] Test 14:48:42 SCREENING [code = BREAST CANCER SCREENING] Future Scheduled 2022-03-25 COLONOSCOPY SCREENING [facility] Test 14:48:42 [code = COLONOSCOPY SCREENING] Future Scheduled 2022-03-25 HEPATITIS B VACCINES [facility] Test 14:48:42 (1 of 3 - Risk 3-dose series) [code = HEPATITIS B VACCINES (1 of 3 - Risk 3-dose series)] Future Scheduled 2022-03-25 COVID-19 VACCINE (3 - [facility] Test 14:48:42 Booster for Pfizer series) [code = COVID-19 VACCINE (3 - Booster for Pfizer series)] Future Scheduled 2022-03-25 65+ PNEUMOCOCCAL [facility] Test 14:48:42 VACCINE (4 - PPSV23 if available, else PCV20) [code = 65+ PNEUMOCOCCAL VACCINE (4 - PPSV23 if available, else PCV20)] Future Scheduled 2022-03-25 INFLUENZA VACCINE Method [facility] Test 14:48:42 [code = INFLUENZA VACCINE] Future Scheduled 2022-03-25 SHINGLES VACCINES (1 [facility] Test 14:48:42 of 2) [code = SHINGLES VACCINES (1 of 2)] Future Scheduled 2022-03-25 BREAST CANCER [facility] Test 14:48:42 SCREENING [code = BREAST CANCER SCREENING] Future Scheduled 2022-03-25 COLONOSCOPY SCREENING [facility] Test 14:48:42 [code = COLONOSCOPY SCREENING] Future Scheduled 2022-03-25 HEPATITIS B VACCINES [facility] Test 14:48:42 (1 of 3 - Risk 3-dose series) [code = HEPATITIS B VACCINES (1 of 3 - Risk 3-dose series)] Future Scheduled 2022-03-25 COVID-19 VACCINE (3 - [facility] Test 14:48:42 Booster for Pfizer series) [code = COVID-19 VACCINE (3 - Booster for Pfizer series)] Future Scheduled 2022-03-25 65+ [facility] VACCINE (4 - PPSV23 if available, else PCV20) [code = 65+ PNEUMOCOCCAL VACCINE (4 - PPSV23 if available, else PCV20)] Future Scheduled 2022-03-25 INFLUENZA VACCINE Method [facility] Test 14:48:42 [code = INFLUENZA VACCINE] Future Scheduled 2022-03-25 SHINGLES VACCINES (1 [facility] Test 14:48:42 of 2) [code = SHINGLES VACCINES (1 of 2)] Future Scheduled 2022-03-25 BREAST CANCER [facility] Test 14:48:42 SCREENING [code = BREAST CANCER SCREENING] Future Scheduled 2022-03-25 COLONOSCOPY SCREENING [facility] Test 14:48:42 [code = COLONOSCOPY SCREENING] Future Scheduled 2022-03-25 HEPATITIS B VACCINES [facility] Test 14:48:42 (1 of 3 - Risk 3-dose series) [code = HEPATITIS B VACCINES (1 of 3 - Risk 3-dose series)] Future Scheduled 2022-03-25 COVID-19 VACCINE (3 - [facility] Test 14:48:42 Booster for Pfizer series) [code = COVID-19 VACCINE (3 - Booster for Pfizer series)] Future Scheduled 2022-03-25 65+ [facility] 14:48[facility]42 VACCINE (4 - PPSV23 if available, else PCV20) [code = 65+ PNEUMOCOCCAL VACCINE (4 - PPSV23 if available, else PCV20)] Future Scheduled 2022-03-25 INFLUENZA VACCINE Method [facility] Test 14:48:42 [code = INFLUENZA VACCINE] Future Scheduled 2022-03-25 SHINGLES VACCINES (1 [facility] Test 14:48:42 of 2) [code = SHINGLES VACCINES (1 of 2)] Future Scheduled 2022-03-25 BREAST CANCER [facility] Test 14:48:42 SCREENING [code = BREAST CANCER SCREENING] Future Scheduled 2022-03-25 COLONOSCOPY SCREENING [facility] Test 14:48:42 [code = COLONOSCOPY SCREENING] Future Scheduled 2022-03-25 HEPATITIS B VACCINES [facility] Test 14:48:42 (1 of 3 - Risk 3-dose series) [code = HEPATITIS B VACCINES (1 of 3 - Risk 3-dose series)] Future Scheduled 2022-03-25 COVID-19 VACCINE (3 - [facility] [facility] Test 14:48:42 Booster for Pfizer series) [code = COVID-19 VACCINE (3 - Booster for Pfizer series)] Future Scheduled 2022-03-25 65[facility]42 VACCINE (4 - PPSV23 if available, else PCV20) [code = 65+ PNEUMOCOCCAL VACCINE (4 - PPSV23 if available, else PCV20)] Future Scheduled 2022-03-25 INFLUENZA VACCINE Method [facility] Test 14:48:42 [code = INFLUENZA VACCINE] Future Scheduled 2022-03-25 SHINGLES VACCINES (1 [facility] Test 14:48:42 of 2) [code = SHINGLES VACCINES (1 of 2)] Future Scheduled 2022-03-25 BREAST CANCER [facility] Test 14:48:42 SCREENING [code = BREAST CANCER SCREENING] Future Scheduled 2022-03-25 COLONOSCOPY SCREENING [facility] Test 14:48:42 [code = COLONOSCOPY SCREENING] Future Scheduled 2022-03-25 HEPATITIS B VACCINES [facility] Test 14:48:42 (1 of 3 - Risk 3-dose series) [code = HEPATITIS B VACCINES (1 of 3 - Risk 3-dose series)] Future Scheduled 2022-03-25 COVID-19 VACCINE (3 - [facility] Test 14:48:42 Booster for Pfizer series) [code = COVID-19 VACCINE (3 - Booster for Pfizer series)] Future Scheduled 2022-03-25 65+ PNEUMOCOCCAL [facility] [place] [place] Test 14:48:42 VACCINE (4 - PPSV23 if available, else PCV20) [code = 65+ PNEUMOCOCCAL VACCINE (4 - PPSV23 if available, else PCV20)] Future Scheduled 2022-03-25 INFLUENZA VACCINE Method [facility] Test 14:48:42 [code = INFLUENZA VACCINE] Future Scheduled 2022-03-25 SHINGLES VACCINES (1 [facility] Test 14:48:42 of 2) [code = SHINGLES VACCINES (1 of 2)] Future Scheduled 2022-03-25 BREAST CANCER [facility] Test 14:48:42 SCREENING [code = BREAST CANCER SCREENING] Future Scheduled 2022-03-25 COLONOSCOPY SCREENING [facility] Test 14:48:42 [code = COLONOSCOPY SCREENING] Future Scheduled 2022-03-25 HEPATITIS B VACCINES [facility] Test 14:48:42 (1 of 3 - Risk 3-dose series) [code = HEPATITIS B VACCINES (1 of 3 - Risk 3-dose series)] Future Scheduled 2022-03-25 COVID-19 VACCINE (3 - [facility] Test 14:48:42 Booster for Pfizer series) [code = COVID-19 VACCINE (3 - Booster for Pfizer series)] Future Scheduled 2022-03-25 65+ PNEUMOCOCCAL [facility] [place] [place] Test 14:48:42 VACCINE (4 - PPSV23 if available, else PCV20) [code = 65+ PNEUMOCOCCAL VACCINE (4 - PPSV23 if available, else PCV20)] Future Scheduled 2022-03-25 INFLUENZA VACCINE Method [facility] Test 14:48:42 [code = INFLUENZA VACCINE] Future Scheduled 2022-03-25 SHINGLES VACCINES (1 [facility] Test 14:48:42 of 2) [code = SHINGLES VACCINES (1 of 2)] Future Scheduled 2022-03-25 BREAST CANCER [facility] Test 14:48:42 SCREENING [code = BREAST CANCER SCREENING] Future Scheduled 2022-03-25 COLONOSCOPY SCREENING [facility] Test 14:48:42 [code = COLONOSCOPY SCREENING] Future Scheduled 2022-03-25 HEPATITIS B VACCINES [facility] Test 14:48:42 (1 of 3 - Risk 3-dose series) [code = HEPATITIS B VACCINES (1 of 3 - Risk 3-dose series)] Future Scheduled 2022-03-25 COVID-19 VACCINE (3 - [facility] Test 14:48:42 Booster for Pfizer series) [code = COVID-19 VACCINE (3 - Booster for Pfizer series)] Future Scheduled 2022-03-25 65+ [facility] 14:48:[facility] VACCINE (4 - PPSV23 if available, else PCV20) [code = 65+ PNEUMOCOCCAL VACCINE (4 - PPSV23 if available, else PCV20)] Future Scheduled 2022-03-25 INFLUENZA VACCINE Method [facility] Test 14:48:42 [code = INFLUENZA VACCINE] Future Scheduled 2022-03-25 SHINGLES VACCINES (1 [facility] Test 14:48:42 of 2) [code = SHINGLES VACCINES (1 of 2)] Future Scheduled 2022-03-25 BREAST CANCER [facility] Test 14:48:42 SCREENING [code = BREAST CANCER SCREENING] Future Scheduled 2022-03-25 COLONOSCOPY SCREENING [facility] Test 14:48:42 [code = COLONOSCOPY SCREENING] Future Scheduled 2022-03-25 HEPATITIS B VACCINES [facility] Test 14:48:42 (1 of 3 - Risk 3-dose series) [code = HEPATITIS B VACCINES (1 of 3 - Risk 3-dose series)] Future Scheduled 2022-03-25 COVID-19 VACCINE (3 - [facility] Test 14:48:42 Booster for Pfizer series) [code = COVID-19 VACCINE (3 - Booster for Pfizer series)] Future Scheduled 2022-03-25 65+ [facility] 14:48:42 VACCINE (4 - PPSV23 if available, else PCV20) [code = 65+ PNEUMOCOCCAL VACCINE (4 - PPSV23 if available, else PCV20)] Future Scheduled 2022-03-25 INFLUENZA VACCINE Method [facility] Test 14:48:42 [code = INFLUENZA VACCINE] Future Scheduled 2022-03-25 SHINGLES VACCINES (1 [facility] Test 14:48:42 of 2) [code = SHINGLES VACCINES (1 of 2)] Future Scheduled 2022-03-25 BREAST CANCER [facility] Test 14:48:42 SCREENING [code = BREAST CANCER SCREENING] Future Scheduled 2022-03-25 [facility]COPY [facility]CREENING [facility] Test 14:48:42 [code = COLONOSCOPY SCREENING] Future Scheduled 2022-03-25 HEPATITIS B VACCINES [facility] Test 14:48:42 (1 of 3 - Risk 3-dose series) [code = HEPATITIS B VACCINES (1 of 3 - Risk 3-dose series)] Future Scheduled 2022-03-25 COVID-19 VACCINE (3 - [facility] Test 14:48:42 Booster for Pfizer series) [code = COVID-19 VACCINE (3 - Booster for Pfizer series)] Future Scheduled 2022-03-25 65+ [facility] Test 14:48:42 VACCINE (4 - PPSV23 if available, else PCV20) [code = 65+ PNEUMOCOCCAL VACCINE (4 - PPSV23 if available, else PCV20)] Future Scheduled 2022-03-25 INFLUENZA VACCINE Method [facility] Test 14:48:42 [code = INFLUENZA VACCINE] Future Scheduled 2022-03-04 SHINGLES VACCINES (1 [facility] Test 14:03:57 of 2) [code = SHINGLES VACCINES (1 of 2)] Future Scheduled 2022-03-04 BREAST CANCER [facility] Test 14:03:57 SCREENING [code = BREAST CANCER SCREENING] Future Scheduled 2022-03-04 COLONOSCOPY SCREENING [facility] Test 14:03:57 [code = COLONOSCOPY SCREENING] Future Scheduled 2022-03-04 HEPATITIS B VACCINES [facility] Test 14:03:57 (1 of 3 - Risk 3-dose series) [code = HEPATITIS B VACCINES (1 of 3 - Risk 3-dose series)] Future Scheduled 2022-03-04 COVID-19 VACCINE (3 - [facility] Test 14:03:57 Booster for Pfizer series) [code = COVID-19 VACCINE (3 - Booster for Pfizer series)] Future Scheduled 2022-03-04 65[facility] 14:03:57 VACCINE (4 - PPSV23 if available, else PCV20) [code = 65+ PNEUMOCOCCAL VACCINE (4 - PPSV23 if available, else PCV20)] Future Scheduled 2022-03-04 INFLUENZA VACCINE Method [facility] Test 14:03:57 [code = INFLUENZA VACCINE] Future Scheduled 2022-03-04 SHINGLES VACCINES (1 [facility] Test 14:03:57 of 2) [code = SHINGLES VACCINES (1 of 2)] Future Scheduled 2022-03-04 BREAST CANCER [facility] Test 14:03:57 SCREENING [code = BREAST CANCER SCREENING] Future Scheduled 2022-03-04 COLONOSCOPY SCREENING [facility] Test 14:03:57 [code = COLONOSCOPY SCREENING] Future Scheduled 2022-03-04 HEPATITIS B VACCINES [facility] Test 14:03:57 (1 of 3 - Risk 3-dose series) [code = HEPATITIS B VACCINES (1 of 3 - Risk 3-dose series)] Future Scheduled 2022-03-04 COVID-19 VACCINE (3 - [facility] Test 14:03:57 Booster for Pfizer series) [code = COVID-19 VACCINE (3 - Booster for Pfizer series)] Future Scheduled 2022-03-04 65+ [facility] 14:03:57 VACCINE (4 - PPSV23 if available, else PCV20) [code = 65+ PNEUMOCOCCAL VACCINE (4 - PPSV23 if available, else PCV20)] Future Scheduled 2022-03-04 INFLUENZA VACCINE Method [facility] Test 14:03:57 [code = INFLUENZA VACCINE] Future Scheduled 2022-03-04 SHINGLES VACCINES (1 [facility] Test 14:03:57 of 2) [code = SHINGLES VACCINES (1 of 2)] Future Scheduled 2022-03-04 BREAST CANCER [facility] Test 14:03:57 SCREENING [code = BREAST CANCER SCREENING] Future Scheduled 2022-03-04 COLONOSCOPY SCREENING [facility] Test 14:03:57 [code = COLONOSCOPY SCREENING] Future Scheduled 2022-03-04 HEPATITIS B VACCINES [facility] Test 14:03:57 (1 of 3 - Risk 3-dose series) [code = HEPATITIS B VACCINES (1 of 3 - Risk 3-dose series)] Future Scheduled 2022-03-04 COVID-19 VACCINE (3 - [facility] Test 14:03:57 Booster for Pfizer series) [code = COVID-19 VACCINE (3 - Booster for Pfizer series)] Future Scheduled 2022-03-04 65+ [facility] Test 14:03:57 VACCINE (4 - PPSV23 if available, else PCV20) [code = 65+ PNEUMOCOCCAL VACCINE (4 - PPSV23 if available, else PCV20)] Future Scheduled 2022-03-04 INFLUENZA VACCINE Method [facility] Test 14:03:57 [code = INFLUENZA VACCINE] Future Scheduled 2022-03-04 SHINGLES VACCINES (1 [facility] Test 14:03:57 of 2) [code = SHINGLES VACCINES (1 of 2)] Future Scheduled 2022-03-04 BREAST CANCER [facility] Test 14:03:57 SCREENING [code = BREAST CANCER SCREENING] Future Scheduled 2022-03-04 COLONOSCOPY SCREENING [facility] Test 14:03:57 [code = COLONOSCOPY SCREENING] Future Scheduled 2022-03-04 HEPATITIS B VACCINES [facility] Test 14:03:57 (1 of 3 - Risk 3-dose series) [code = HEPATITIS B VACCINES (1 of 3 - Risk 3-dose series)] Future Scheduled 2022-03-04 COVID-19 VACCINE (3 - [facility] Test 14:03:57 Booster for Pfizer series) [code = COVID-19 VACCINE (3 - Booster for Pfizer series)] Future Scheduled 2022-03-04 65+ PNEUMOCOCCAL [facility] [place] [place] Test 14:03:57 VACCINE (4 - PPSV23 if available, else PCV20) [code = 65+ PNEUMOCOCCAL VACCINE (4 - PPSV23 if available, else PCV20)] Future Scheduled 2022-03-04 INFLUENZA VACCINE Method [facility] Test 14:03:57 [code = INFLUENZA VACCINE] Future Scheduled 2022-02-11 SHINGLES VACCINES (1 [facility] Test 13:39:12 of 2) [code = SHINGLES VACCINES (1 of 2)] Future Scheduled 2022-02-11 BREAST CANCER [facility] Test 13:39:12 SCREENING [code = BREAST CANCER SCREENING] Future Scheduled 2022-02-11 COLONOSCOPY SCREENING [facility] Test 13:39:12 [code = COLONOSCOPY SCREENING] Future Scheduled 2022-02-11 HEPATITIS B VACCINES [facility] Test 13:39:12 (1 of 3 - Risk 3-dose series) [code = HEPATITIS B VACCINES (1 of 3 - Risk 3-dose series)] Future Scheduled 2022-02-11 COVID-19 VACCINE (3 - [facility] Test 13:39:12 Booster for Pfizer series) [code = COVID-19 VACCINE (3 - Booster for Pfizer series)] Future Scheduled 2022-02-11 65+ [facility] Test 13:39:12 VACCINE (4 - PPSV23 or PCV20) [code = 65+ PNEUMOCOCCAL VACCINE (4 - PPSV23 or PCV20)] Future Scheduled 2022-02-11 INFLUENZA VACCINE Method [facility] Test 13:39:12 [code = INFLUENZA VACCINE] Future Scheduled 2022-01-29 SHINGLES VACCINES (1 [facility] Test 14:07:20 of 2) [code = SHINGLES VACCINES (1 of 2)] Future Scheduled 2022-01-29 BREAST CANCER [facility] Test 14:07:20 SCREENING [code = BREAST CANCER SCREENING] Future Scheduled 2022-01-29 COLONOSCOPY SCREENING [facility] Test 14:07:20 [code = COLONOSCOPY SCREENING] Future Scheduled 2022-01-29 HEPATITIS B VACCINES [facility] Test 14:07:20 (1 of 3 - Risk 3-dose series) [code = HEPATITIS B VACCINES (1 of 3 - Risk 3-dose series)] Future Scheduled 2022-01-29 COVID-19 VACCINE (3 - [facility] Test 14:07:20 Booster for Pfizer series) [code = COVID-19 VACCINE (3 - Booster for Pfizer series)] Future Scheduled 2022-01-29 65+ [facility] Test 14:07:20 VACCINE (4 - PPSV23 or PCV20) [code = 65+ PNEUMOCOCCAL VACCINE (4 - PPSV23 or PCV20)] Future Scheduled 2022-01-29 INFLUENZA VACCINE Method [facility] Test 14:07:20 [code = INFLUENZA VACCINE] Future Scheduled 2022-01-29 SHINGLES VACCINES (1 [facility] Test 14:07:20 of 2) [code = SHINGLES VACCINES (1 of 2)] Future Scheduled 2022-01-29 BREAST CANCER [facility] Test 14:07:20 SCREENING [code = BREAST CANCER SCREENING] Future Scheduled 2022-01-29 COLONOSCOPY SCREENING [facility] Test 14:07:20 [code = COLONOSCOPY SCREENING] Future Scheduled 2022-01-29 HEPATITIS B VACCINES [facility] Test 14:07:20 (1 of 3 - Risk 3-dose series) [code = HEPATITIS B VACCINES (1 of 3 - Risk 3-dose series)] Future Scheduled 2022-01-29 COVID-19 VACCINE (3 - [facility] Test 14:07:20 Booster for Pfizer series) [code = COVID-19 VACCINE (3 - Booster for Pfizer series)] Future Scheduled 2022-01-29 65+ PNEUMOCOCCAL [facility] [place] [place] Test 14:07:20 VACCINE (4 - PPSV23 or PCV20) [code = 65+ PNEUMOCOCCAL VACCINE (4 - PPSV23 or PCV20)] Future Scheduled 2022-01-29 INFLUENZA VACCINE Method [facility] Test 14:07:20 [code = INFLUENZA VACCINE] Future Scheduled 2022-01-29 SHINGLES VACCINES (1 [facility] Test 14:07:20 of 2) [code = SHINGLES VACCINES (1 of 2)] Future Scheduled 2022-01-29 BREAST CANCER [facility] Test 14:07:20 SCREENING [code = BREAST CANCER SCREENING] Future Scheduled 2022-01-29 COLONOSCOPY SCREENING [facility] Test 14:07:20 [code = COLONOSCOPY SCREENING] Future Scheduled 2022-01-29 HEPATITIS B VACCINES [facility] Test 14:07:20 (1 of 3 - Risk 3-dose series) [code = HEPATITIS B VACCINES (1 of 3 - Risk 3-dose series)] Future Scheduled 2022-01-29 COVID-19 VACCINE (3 - [facility] Test 14:07:20 Booster for Pfizer series) [code = COVID-19 VACCINE (3 - Booster for Pfizer series)] Future Scheduled 2022-01-29 65+ PNEUMOCOCCAL [facility] [place] [place] Test 14:07:20 VACCINE (4 - PPSV23 or PCV20) [code = 65+ PNEUMOCOCCAL VACCINE (4 - PPSV23 or PCV20)] Future Scheduled 2022-01-29 INFLUENZA VACCINE Method [facility] Test 14:07:20 [code = INFLUENZA VACCINE] Future Scheduled 2022-01-29 SHINGLES VACCINES (1 [facility] Test 14:07:20 of 2) [code = SHINGLES VACCINES (1 of 2)] Future Scheduled 2022-01-29 BREAST CANCER [facility] Test 14:07:20 SCREENING [code = BREAST CANCER SCREENING] Future Scheduled 2022-01-29 COLONOSCOPY SCREENING [facility] Test 14:07:20 [code = COLONOSCOPY SCREENING] Future Scheduled 2022-01-29 HEPATITIS B VACCINES [facility] Test 14:07:20 (1 of 3 - Risk 3-dose series) [code = HEPATITIS B VACCINES (1 of 3 - Risk 3-dose series)] Future Scheduled 2022-01-29 COVID-19 VACCINE (3 - [facility] Test 14:07:20 Booster for Pfizer series) [code = COVID-19 VACCINE (3 - Booster for Pfizer series)] Future Scheduled 2022-01-29 65+ PNEUMOCOCCAL [facility] [place] [place] Test 14:07:20 VACCINE (4 - PPSV23 or PCV20) [code = 65+ PNEUMOCOCCAL VACCINE (4 - PPSV23 or PCV20)] Future Scheduled 2022-01-29 INFLUENZA VACCINE Method [facility] Test 14:07:20 [code = INFLUENZA VACCINE] Future Scheduled 2022-01-20 SHINGLES VACCINES (1 [facility] Test 06:12:34 of 2) [code = SHINGLES VACCINES (1 of 2)] Future Scheduled 2022-01-20 Screening for [facility] Test 06:12:34 malignant neoplasm of cervix (procedure) [code = [id number]] Future Scheduled 2022-01-20 BREAST CANCER [facility] Test 06:12:34 SCREENING [code = BREAST CANCER SCREENING] Future Scheduled 2022-01-20 COLONOSCOPY SCREENING [facility] Test 06:12:34 [code = COLONOSCOPY SCREENING] Future Scheduled 2022-01-20 HEPATITIS B VACCINES [facility] Test 06:12:34 (1 of 3 - Risk 3-dose series) [code = HEPATITIS B VACCINES (1 of 3 - Risk 3-dose series)] Future Scheduled 2022-01-20 COVID-19 VACCINE (3 - [facility] Test 06:12:34 Booster for Pfizer series) [code = COVID-19 VACCINE (3 - Booster for Pfizer series)] Future Scheduled 2022-01-20 65+ PNEUMOCOCCAL [facility] [place] [place] Test 06:12:34 VACCINE (4 - PPSV23 or PCV20) [code = 65+ PNEUMOCOCCAL VACCINE (4 - PPSV23 or PCV20)] Future Scheduled 2022-01-20 INFLUENZA VACCINE Method [facility] Test 06:12:34 [code = INFLUENZA VACCINE] Future Scheduled 2022-01-16 SHINGLES VACCINES (1 [facility] Test 12:09:25 of 2) [code = SHINGLES VACCINES (1 of 2)] Future Scheduled 2022-01-16 Screening for [facility] Test 12:09:25 malignant neoplasm of cervix (procedure) [code = [id number]] Future Scheduled 2022-01-16 BREAST CANCER [facility] Test 12:09:25 SCREENING [code = BREAST CANCER SCREENING] Future Scheduled 2022-01-16 COLONOSCOPY SCREENING [facility] Test 12:09:25 [code = COLONOSCOPY SCREENING] Future Scheduled 2022-01-16 HEPATITIS B VACCINES [facility] Test 12:09:25 (1 of 3 - Risk 3-dose series) [code = HEPATITIS B VACCINES (1 of 3 - Risk 3-dose series)] Future Scheduled 2022-01-16 COVID-19 VACCINE (3 - [facility] Test 12:09:25 Booster for Pfizer series) [code = COVID-19 VACCINE (3 - Booster for Pfizer series)] Future Scheduled 2022-01-16 65+ [address]NEUMOCOCC[address] [facility] [place] [place] Test 12:09:25 VACCINE (4 - PPSV23 or PCV20) [code = 65+ PNEUMOCOCCAL VACCINE (4 - PPSV23 or PCV20)] Future Scheduled 2022-01-16 INFLUENZA VACCINE Method [facility] Test 12:09:25 [code = INFLUENZA VACCINE] Future Scheduled 2022-01-14 SHINGLES VACCINES (1 [facility] Test 04:11:46 of 2) [code = SHINGLES VACCINES (1 of 2)] Future Scheduled 2022-01-14 Screening for [facility] Test 04:11:46 malignant neoplasm of cervix (procedure) [code = [id number]] Future Scheduled 2022-01-14 BREAST CANCER [facility] Test 04:11:46 SCREENING [code = BREAST CANCER SCREENING] Future Scheduled 2022-01-14 COLONOSCOPY SCREENING [facility] Test 04:11:46 [code = COLONOSCOPY SCREENING] Future Scheduled 2022-01-14 HEPATITIS B VACCINES [facility] Test 04:11:46 (1 of 3 - Risk 3-dose series) [code = HEPATITIS B VACCINES (1 of 3 - Risk 3-dose series)] Future Scheduled 2022-01-14 COVID-19 VACCINE (3 - [facility] Test 04:11:46 Booster for Pfizer series) [code = COVID-19 VACCINE (3 - Booster for Pfizer series)] Future Scheduled 2022-01-14 65+ [address]NEUMOCOCC[address] [facility] [place] [place] Test 04:11:46 VACCINE (4 - PPSV23 or PCV20) [code = 65+ PNEUMOCOCCAL VACCINE (4 - PPSV23 or PCV20)] Future Scheduled 2022-01-14 INFLUENZA VACCINE Method [facility] Test 04:11:46 [code = INFLUENZA VACCINE] Future Scheduled 2021-08-26 Screening for [facility] Test 13:02:23 malignant neoplasm of cervix (procedure) [code = [id number]] Future Scheduled 2021-08-26 BREAST CANCER [facility] Test 13:02:23 SCREENING [code = BREAST CANCER SCREENING] Future Scheduled 2021-08-26 COLONOSCOPY SCREENING [facility] Test 13:02:23 [code = COLONOSCOPY SCREENING] Future Scheduled 2021-08-26 Screening for [facility] Test 13:02:23 malignant neoplasm of lung (procedure) [code = [id number]] Future Scheduled 2021-08-26 SHINGLES VACCINES (#1) [facility] Test 13:02:23 [code = SHINGLES VACCINES (#1)] Future Scheduled 2021-08-26 COVID-19 VACCINE (3 - [facility] Test 13:02:23 Pfizer risk 4-dose series) [code = COVID-19 VACCINE (3 - Pfizer risk 4-dose series)] Future Scheduled 2021-08-26 65+ [facility] Test 13:02:23 VACCINE (4 of 4 - PPSV23) [code = 65+ PNEUMOCOCCAL VACCINE (4 of 4 - PPSV23)] Future Scheduled 2021-08-26 INFLUENZA VACCINE Method [facility] Test 13:02:23 [code = INFLUENZA VACCINE] Encounters Start End Encounter Admission Attending Care Care Encounter Source Date/Time Date/Time Type Type Clinicians Facility Department ID 2022-02-18 Outpatient [facility] [id number] [place] 14:30:[address] [place] [address] 2021-07-14 Outpatient [facility]ADIKOVIC, [facility] [id number] [place] 09:33:51 [facility] 2021-06-02 Outpatient HEMATPOUR, [facility] [id number] [place] 13:58:59 [facility] 2021-04-28 Outpatient HEMATPOUR, [facility] [id number] [place] 11:21:22 [facility] 2021-03-20 Emergency [facility] [id number] [facility] [id number] [place] 08:16:46 [facility] 2020-10-31 Outpatient HEMATPOUR, [facility] [id number] [place] 09:44:50 [facility] 2020-09-30 Outpatient [facility]EMATP[facility], [facility] [id number] [place] 13:16:03 [facility] 2022-04-22 2022-04-22 Emergency X [facility] ERT [id number] Univers 13:55:00 17:00:00 PAULETTE ity [facility] 2022-04-22 2022-04-[address] [facility] [id number] Univers 13:55:00 17:00:00 Paulette S GEDDES [id number] i ty of [place] 4.2.7.2.686 [place] [facility] [id number] [place] [id number] [place] 2022-04-07 2022-04-07 Outpatient R UNKNOWN, [facility] [id number] Univers 20:40:00 20:40:00 ATTENDING ity of [facility] 2022-04-07 2022-04-07 Telephone Devin, 1.2.840.1 [id number] Univers 00:00:00 00:00:00 Robbi Hairston [id number] i ty of 3.104.2.7 [place] .3.211195 Medica l .8 [place] 2022-03-05 2022-03-05 Installations Inspector Santiago Cardenas [id number] Univers 13:45:00 14:00:00 Visit [facility] [id number] ity of 3.104.2.7 [place] .3.078356 Medica l .8 [place] 2022-03-05 2022-03-05 Office JOSÉ ANTONIO Cardenas [id number] Univers 13:00:00 13:30:00 Visit Santiago [facility] [id number] i ty of [facility] 4.2.7.2.686 [facility] [id number] [facility] 089 [place] 2022-03-05 2022-03-05 Outpatient R [facility] [id number] Univers 13:00:00 13:00:00 [facility] 2022-02-26 2022-02-26 Outpatient R [facility] [id number] Univers 08:30:00 08:30:00 [facility] 2022-02-26 2022-02-26 Outpatient R [facility] [id number] Univers 08:30:00 08:30:00 [facility] 2022-02-17 2022-02-17 Transition Stevo, 1.2.840.6 [id number] Univers 00:00:00 00:00:00 of Care Isaias Arredondo 56262.1.1 it y of 3.104.2.7 [place] .[id number] Medica l .8 [place] 2022-02-10 2022-02-16 Inpatient X [facility] [facility] [id number] Univers 22:59:00 19:27:00 TOMY ity [facility] 2022-02-10 2022-02-16 Hospital Reilly Means 1.2.840.1 [id number] Univers 22:59:00 19:27:00 Encounter Ofe Shields 15971.1.1 ity of [place] 3.104.2.7 [place] .3.811707 Medica l .8 [place] 2022-02-11 2022-02-11 Telephone Ronald, 1.2.840.2 [id number] [id number] Univers 00:00:00 00:00:00 Santiago 29764.1.1 ity of 3.104.2.7 [place] .3.490921 Medica l .8 [place] 2022-02-10 2022-02-10 Travel 1.2.840.1 1.2.382.496 9091 9827 Univers 00:00:00 00:00:00 88485.1.1 350.1.13.10 ity of 3.104.2.7 4.2.7.3.698 [place] .3.856698 084.8 Medica l .8 [place] 2022-01-30 2022-01-30 Telephone East, 1.2.840.5 [id number] [id number] Univers 00:00:00 00:00:00 Santiago 15259.1.1 ity of 3.104.2.7 [place] .3.999696 Medica l .8 Branch 2022-01-06 2022-01-06 Orders Doctor FERMIN 1.2.840.114 [id number] Univers 00:00:00 00:00:00 Only Unassigned, JACKELINE 350.1.13.10 ity of [place] [facility] 4.2.7.2.686 Yomi as 286.7545139 [facility] 009 Branch 2021-12-25 2021-12-25 Orders Doctor FERMIN 1.2.840.114 [id number] Univers 00:00:00 00:00:00 Only Unassigned, JACKELINE 350.1.13.10 ity of [place] [facility] 4.2.7.2.686 Yomi as 047.9967867 [facility] 009 Branch 2021-12-12 2021-12-13 Emergency X Bill COLES [facility] ERT [id number] Univers 23:53:00 01:52:00 ity of [facility] 2021-12-12 2021-12-13 Emergency Bill Coles [facility] 1.2.840.114 95 [id number] Univers 23:53:00 01:52:00 Kiersten BULLOCK 350.1.13.10 i ty of [place].2.7.2.686 [place] [id number] [facility] 084 Branch 2021-11-20 2021-11-20 Installations Inspector [facility] UNIVERSIT 1.2.840.114 [id number] Univers 09:45:00 10:00:00 Visit [facility] 350.1.13.10 ity of CL[place] 4[place] [phone] [facility] 316 Branch 2021-11-20 2021-11-20 Office [facility], UNIVERS 1.2.589.302 1178 9084 Univers 08:30:00 09:00:[address] [facility] 350.1.13.10 i ty of CLINICS 4.2.7.2.686 [facility] [id number] [place] [id number] Branch 2021-11-20 2021-11-20 Outpatient R RONALD, [facility] [id number] Univers 08:30:00 08:30:00 SANTIAGO charlie [facility] 2021-11-20 2021-11-20 Outpatient R RONALD [facility] [id number] Univers 08:30:00 08:30:00 [facility] 2021-11-20 2021-11-20 Outpatient R RONALD, [facility] [id number] Univers 08:30:00 08:30:00 [facility] 2021-11-20 2021-11-20 Outpatient R RONALD, [facility] [id number] Univers 08:30:00 08:30:00 [facility] 2021-10-24 2021-10-24 Emergency X [facility] ERT [id number] Univers 16:27:00 22:26:00 [facility] 2021-10-24 2021-10-[address] [facility] [id number] Univers 16:27:00 22:26:00 [facility] 2021-10-24 2021-10-24 Emergency Reilly Means [facility] 1.2.840. 114 [id number] Univers 16:27:00 22:26:00 ZainabKrishna parrajose Christian KOBE 350.1.13.10 ity [facility] 4.2.7.2.686 [facility] [id number] [address] 2021-10-23 2021-10-[address] [facility] ERT [id number] Univers 20:22:00 02:57:00 [facility] 2021-10-23 2021-10-24 [facility] 1.2.337.358 0065 [id number] Univers 20:22:00 02:57:00 [facility] 350.1.13.10 ity [facility] 4.2.7.2.686 [facility] [id number] [address] 2021-09-07 2021-09-07 Outpatient R [facility] [id number] Univers 08:00:00 08:00:00 GADIEL rodas [facility] 2021-09-07 2021-09-07 Outpatient R [facility] [id number] Univers 08:00:00 08:00:00 GADIEL rodas [facility] 2021-08-21 2021-08-21 Outpatient R [facility] [id number] Univers 10:45:00 10:45:00 SANTIAGO barbosa [facility] 2021-08-21 2021-08-21 Installations Inspector Santiago Cardenas 1.2.840.1 [id number] Univers 10:45:00 10:45:00 Visit [facility] 91565.1.1 ity of 3.104.2.7 [place] .3.051789 Medica l .8 [place] 2021-08-21 2021-08-21 Office [facility], 1.2.840.8 [id number] 516 Univers 08:30:00 09:00:00 Visit Santiago 18331.1.1 ity of 3.104.2.7 [place] .3.944433 Medica l .8 [place] 2021-08-21 2021-08-21 Office [facility], [facility] 1.2.492.120 8999 8516 Univers 08:30:00 09:00:00 Visit Santiago [facility] 350.1.13.10 i ty of CLINICS 4.2.7.2.686 [place] [id number] [facility] 089 [place] 2021-08-21 2021-08-21 Outpatient R [facility] [id number] Univers 08:30:00 08:30:00 SANTIAGO barbosa [facility] 2021-08-21 2021-08-21 Travel 1.2.840.1 1.2.244.194 6269 3865 Univers 00:00:00 00:00:00 04242.1.1 350.1.13.10 ity of 3.104.2.7 4.2.7.3.698 [place] .3.209247 084.8 Medica l .8 Branch 2021-08-14 2021-08-14 Telephone East, 1.2.840.0 [id number] Univers 00:00:00 00:00:00 Santiago 06486.1.1 ity of 3.104.2.7 [place] .3.874704 Medica l .8 Branch 2021-08-13 2021-08-13 Telephone East, 1.2.840.2 [id number] 922 [id number] Univers 00:00:00 00:00:00 Santiago 21261.1.1 ity of 3.104.2.7 [place] .3.171534 Medica l .8 [place] 2021-08-11 2021-08-11 Outpatient [facility] [id number] Univers 08:00:00 08:00:00 [facility] 2021-08-05 2021-08-05 [facility] [id number] [facility] 05:24:00 05:24:00 Mike 31 [facility] 2021-07-20 2021-07-20 Outpatient [facility] [id number] Univers 10:00:00 10:00:00 [facility] 2021-07-14 2021-07-14 Office Pankaj, KIMBER[place] 6400 1.2.840.114 13 [id number] [place] 08:45:00 09:34:[address] 350.1.13.58 Health 9.2.7.2.686 [id number] 1 2021-07-09 2021-07-09 Telephone H[place], UTP 6400 1.2.840.114 [id number] [place] 00:00:00 00:00:[address] 350.1.13.58 Health 9.2.7.2.686 [id number] 1 2021-07-09 2021-07-09 Telephone [place], UTP 6400 1.2.840.114 [id number] [place] 00:00:00 00:00:[address] 350.1.13.58 Health 9.2.7.2.686 [id number] 1 2021-07-03 2021-07-03 Outpatient R EAST, [facility] [id number] Univers 08:00:00 08:00:00 SANTIAGO [facility] 2021-06-17 2021-06-17 Inpatient WINTER Leal INTE.02 [id number] [facility] 10:56:00 14:36:00 Mike 47 [facility] 2021-06-15 2021-06-15 Outpatient R SELF, [facility] [id number] Univers 10:15:00 11:07:21 GADIEL vogel [facility] 2021-06-15 2021-06-15 Outpatient R SELF, [facility] [id number] Univers 10:15:00 10:15:00 GADIEL barbosa [facility] 2021-06-15 2021-06-15 Outpatient R SELF, [facility] [id number] Univers 10:15:00 10:15:00 GADIEL familia vogel [facility] 2021-06-15 2021-06-15 Orders Doctor 1.2.840.4 [id number] 775 Univers 00:00:00 00:00:00 Only Unassigned, 97506.1.1 ity of [place] 3.104.2.7 [place] .3.332361 Medica l .8 [place] 2021-06-15 2021-06-15 Travel 1.2.840.1 1.2.747.998 3412 7719 Univers 00:00:00 00:00:00 93505.1.1 350.1.13.10 ity of 3.104.2.7 4.2.7.3.698 [place] .3.598248 084.8 Medica l .8 [place] 2021-06-11 2021-06-11 Refill East, UNIVERSIT 1.2.462.618 9029 9185 Univers 00:00:00 00:00:00 [facility] 350.1.13.10 i ty of CLINICS 4[place]2.[place].2.[place] 608.8084689 [facility] 089 [place] 2021-06-11 2021-06-11 Refill East, 1.2.840.4 [id number] 185 Univers 00:00:00 00:00:00 Santiago 56128.1.1 ity of 3.104.2.7 [place] .3.796579 Medica l .8 [place] 2021-06-05 2021-06-05 Outpatient R EAST, [facility] [id number] Univers 09:00:00 09:00:00 SANTIAGO maciely of [facility] 2021-06-02 2021-06-02 Telephone East, UNIVERSIT 1.2.840.114 90 [id number] Univers 00:00:00 00:00:00 Santiago [facility] 350.1.13.10 i ty of [facility] 4.2.7.2.686 [place] 561.6332183 [facility] porfirio 089 [place] 2021-06-02 2021-06-02 Telephone East, 1.2.840.3 [id number] [id number] Univers 00:00:00 00:00:00 Santiago 03330.1.1 ity of 3.104.2.7 [place] .3.611347 Medica l .8 [place] 2021-05-29 2021-05-29 Telephone East, 1.2.840.3 [id number] 902 [id number] Univers 00:00:00 00:00:00 Santiago 66103.1.1 ity of 3.104.2.7 [place] .3.195563 Medica l .8 [place] 2021-05-29 2021-05-29 Telephone East, 1.2.840.2 [id number] 902 [id number] Univers 00:00:00 00:00:00 Santiago 07212.1.1 ity of 3.104.2.7 [place] .3.019338 Medica l .8 [place] 2021-05-25 2021-05-25 Outpatient R RODO, [facility] [id number] Univers 08:00:00 08:00:00 GADIEL rodas [facility] 2021-04-29 2021-04-29 Outpatient R LALA, [facility] [id number] Univers 08:00:00 08:00:00 NIKOLAI barbosa of [facility] 2021-04-28 2021-04-28 Telephone Ap, [place] 6400 1.2.840.114 [id number] [place] 00:00:00 00:00:[address] 350.1.13.58 Health 9.2.7.2.686 [id number] 1 2021-04-28 2021-04-28 Telephone Jailyn, 1.2.840.8 [id number] 21 [id number] Methodi 00:00:00 00:00:[address] 3.430.2.7 Hospit a .3.136088 l .8 2021-03-31 2021-03-31 Orders Carol Ann, 1.2.840.1 [id number] 21 [id number] Methodi 00:00:00 00:00:00 Only Sarai CorbinChelsie 76919.1.1 979 s t 3.430.2.7 Hospit a .3.614285 l .8 2021-03-30 2021-03-30 Outpatient R RODO [facility] [id number] Univers 08:45:00 08:45:00 GADIEL rodas [facility] 2021-03-24 2021-03-24 Telephone Jeredimasaleshia, 1.2.840.4 [id number] 21 [id number] Methodi 00:00:00 00:00:[address] 3.430.2.7 Hospit a .3.853386 l .8 2021-02-13 2021-02-13 Telephone Ronald, 1.2.840.5 [id number] 876 42588 Univers 00:00:00 00:00:00 [place] 66611.1.1 [facility] 3.104.2.7 [facility] Medica l 8 [place] 2021-01-28 2021-01-28 [facility]patient [facility] [id number] Univers 08:45:00 09:37:00 NIKOLAI barbosa [facility] 2021-01-28 2021-01-28 Travel 1.2.840.1 1.2.810.713 7468 9777 [facility] 00:00:00 00:00:00 52282.1.1 350.1.13.10 ity of 3.104.2.7 4.2.7.3.698 [place] .3.666909 084.8 Medica l .8 Branch 2021-01-19 2021-01-19 Telephone Prabhu, 1.2.840.1 [id number] [id number] Methodi 00:00:00 00:00:[address] 3.430.2.7 Hospit a .3.711834 l .8 2021-01-04 2021-01-04 Letter Shelia, 1.2.840.9 [id number] 12527 696 Univers 00:00:00 00:00:00 (Out) Dagoberto H 55448.1.1 ity of 3.104.2.7 [place] .3.047592 Medica l .8 Branch 2021-01-04 2021-01-04 Letter Shelia, 1.2.840.3 [id number] 72451 696 Univers 00:00:00 00:00:00 (Out) Dagoberto H 52450.1.1 ity of 3.104.2.7 [place] .3.324407 Medica l .8 Branch 2021-01-03 2021-01-03 Letter Shelia, 1.2.840.9 [id number] 15918 790 Univers 00:00:00 00:00:00 (Out) Dagoberto H 12208.1.1 ity of 3.104.2.7 [place] .3.588592 Medica l .8 [place] 2021-01-03 2021-01-03 Letter Shelia, 1.2.840.0 [id number] 76338 790 Univers 00:00:00 00:00:00 (Out) Dagoberto H 87008.1.1 ity of 3.104.2.7 [place] .3.426093 Medica l .8 [place] 2021-01-02 2021-01-02 Outpatient R [facility] [id number] Univers 13:40:00 13:40:00 ity of [facility] 2021-01-02 2021-01-02 Laboratory Cuba Franks 1.2.840.7 [id number] Univers 12:14:13 12:57:34 Only Lab, [facility] Fam Pob I 08700.1.1 ity of 3.104.2.7 [place] .3.916344 Medica l .8 [place] 2021-01-02 2021-01-02 Laboratory Cuba Franks 1.2.840.8 [id number] Univers 12:14:13 12:57:34 Only Lab, [facility] Viki I 56193.1.1 ity of 3.104.2.7 [place] .3.040802 Medica l .8 [place] 2021-01-02 2021-01-02 Travel 1.2.840.1 1.2.662.474 7806 2306 Univers 00:00:00 00:00:00 42497.1.1 350.1.13.10 ity of 3.104.2.7 4.2.7.3.698 [place] .3.475199 084.8 Medica l .8 [place] 2021-01-02 2021-01-02 Letter Doctor 1.2.840.0 [id number] 948 Univers 00:00:00 00:00:00 (Out) Unassigned, 93595.1.1 ity of [place] 3.104.2.7 [place] .3.987874 Medica l .8 [place] 2021-01-02 2021-01-02 Letter Doctor 1.2.840.2 [id number] 33138 946 Univers 00:00:00 00:00:00 (Out) Unassigned, 93003.1.1 ity of [place] 3.104.2.7 [place] .3.605604 Medica l .8 [place] 2021-01-02 2021-01-02 Travel 1.2.840.1 1.2.135.797 1670 2306 Univers 00:00:00 00:00:00 28342.1.1 350.1.13.10 ity of 3.104.2.7 4.2.7.3.698 [place] .3.057107 084.8 Medica l .8 [place] 2021-01-02 2021-01-02 Letter Doctor 1.2.840.0 [id number] 948 Univers 00:00:00 00:00:00 (Out) Unassigned, 07637.1.1 ity of [place] 3.104.2.7 [place] .3.130788 Medica l .8 [place] 2021-01-02 2021-01-02 Letter Doctor 1.2.840.2 [id number] 12986 946 Univers 00:00:00 00:00:00 (Out) Unassigned, 74508.1.1 ity of [place] 3.104.2.7 [place] .3.763112 Medica l .8 [place] 2020-12-22 2020-12-22 Telephone Beltran, 1.2.840.9 [id number] 862 39196 Univers 00:00:00 00:00:00 Robbi R 50892.1.1 i ty of 3.104.2.7 [place] .3.324423 Medica l .8 [place] 2020-12-22 2020-12-22 Telephone Beltran, 1.2.840.3 [id number] 862 03237 Univers 00:00:00 00:00:00 Eligionda R 47252.1.1 i ty of 3.104.2.7 [place] .3.340909 Medica l .8 [place] 2020-12-12 2020-12-12 Office Hematpour, UTP 6400 1.2.840.114 12 [id number] [place] 07:42:02 08:18:[address] 350.1.13.58 Health 9.2.7.2.686 734.8969786 1 2020-12-12 2020-12-12 Office Hematpour, UTP 6400 1.2.840.114 12 [id number] 07:42:02 08:18:[facility] 350.1.13.58 9.2.7.2.686 739.8422596 1 2020-12-09 2020-12-09 Telephone Meisenlion, 1.2.840.1 [id number] Methodi 00:00:00 00:00:00 Sarai Lieberman 34158.1.1 316 s t 3.430.2.7 Hospit a .3.667608 l .8 2020-12-08 2020-12-08 [facility], 1.2.840.1 [id number] 2100 450791 Methodi 12:35:54 23:59:00 Encounter Ray 56253.1.[address] 3.430.2.7 Hospit a .3.985581 l .8 2020-12-08 2020-12-08 [facility], 1.2.840.1 [id number] 83835 17568 Methodi 17:25:00 17:30:[address] 3.430.2.7 Hospit a .3.593983 l .8 2020-12-08 2020-12-08 [facility], 1.2.840.1 [id number] 11957 91276 Methodi 10:30:00 11:39:56 Visit Ray 80255.1.[address] 3.430.2.7 Hospit a .3.421457 l .8 2020-12-08 2020-12-08 Travel 1.2.840.1 1.2.677.947 4525 874382 Methodi 00:00:00 00:00:[address] 3.430.2.7 0.2.7.3.698 spita .3.487645 084.8 l .8 2020-12-02 2020-12-02 Installations Inspector Santiago Cardenas 1.2.840.1 [id number] 316 [id number] [facility] 10:20:06 10:36:19 Visit [facility] 17477.1.1 ity of 3.104.2.7 [place] .3.608687 Medica l .8 [place] 2020-12-02 2020-12-02 Installations Inspector Santiago Cardenas 1.2.840.1 [id number] [facility] 10:20:06 10:36:19 Visit [facility] 08990.1.1 ity of 3.104.2.7 [place] .3.482476 Medica l .8 [place] 2020-12-02 2020-12-02 Installations Inspector [facility] UNIVERSIT 1.2.840.114 8 [id number] 10:20:06 10:36:19 Visit [facility] 350.1.13.10 [facility] 4.2.7.2.686 049.5320610 [facility] 2020-12-02 2020-12-02 Office Ronald, 1.2.840.4 [id number] 54524 528 Univers 08:31:37 09:01:37 Visit Santiago 45026.1.1 ity of 3.104.2.7 [place] .3.138013 Medica l .8 [place] 2020-12-02 2020-12-02 [facility] [id number] Univers 09:00:00 09:00:00 SANTIAGO ity of [facility] 2020-11-25 2020-11-25 Office Devin, 1.2.840.2 [id number] 40004 865 Univers 11:06:30 11:58:14 Visit Amarilisjolie Hairston 58214.1.1 i ty of 3.104.2.7 [place] .3.610623 Medica l .8 [place] 2020-11-25 2020-11-25 Office Devin 1.2.840.9 [id number] 85544 865 Univers 11:06:30 11:58:14 Visit Eligiomeredith Hairston 67181.1.1 i ty of 3.104.2.7 [place] .3.504868 Medica l .8 [place] 2020-11-25 2020-11-[address] [facility] 1.2.840.114 994513 65 11:06:30 11:58:14 Visit Amarilisjolie Hairston INSEMINATION WORKER 350.1.13.10 [facility] 4.2.7.2.686 MATERNAL 400.4776250 & CHILD [address] [place] [address] 2020-11-25 2020-11-25 Outpatient R [facility] [id number] Univers 11:00:00 11:00:00 ity of [facility] 2020-11-25 2020-11-25 Telephone Shelby Beltran.2.840.6 [id number] 855 46141 Univers 00:00:00 00:00:00 Robbi Hairston 71114.1.1 i ty of 3.104.2.7 [place] .3.215355 Medica l .8 Branch 2020-11-25 2020-11-25 Refill East, 1.2.840.4 [id number] 29601 592 Univers 00:00:00 00:00:00 Santiago 92667.1.1 ity of 3.104.2.7 [place] .3.077249 Medica l .8 Branch 2020-11-25 2020-11-25 Travel 1.2.840.1 1.2.066.503 1713 0247 Univers 00:00:00 00:00:00 59065.1.1 350.1.13.10 ity of 3.104.2.7 4.2.7.3.698 [place] .3.906041 084.8 Medica l .8 [place] 2020-11-25 2020-11-25 Orders Doctor 1.2.840.1 [id number] 43021 064 Univers 00:00:00 00:00:00 Only Unassigned, 88378.1.1 ity of [place] 3.104.2.7 [place] .3.686546 Medica l .8 [place] 2020-11-25 2020-11-25 Telephone Beltran, 1.2.840.2 [id number] 855 27030 Univers 00:00:00 00:00:00 Robbi Hairston 52460.1.1 i ty of 3.104.2.7 [place] .3.279945 Medica l .8 Branch 2020-11-25 2020-11-25 Refill [facility], 1.2.840.9 [id number] 95173 592 Univers 00:00:00 00:00:00 Santiago 90359.1.1 ity of 3.104.2.7 [place] .3.246997 Medica l .8 Branch 2020-11-25 2020-11-25 Travel 1.2.840.1 1.2.412.303 7751 0247 Univers 00:00:00 00:00:00 09631.1.1 350.1.13.10 ity of 3.104.2.7 4.2.7.3.698 [place] .3.988749 084.8 Medica l .8 Branch 2020-11-25 2020-11-25 Orders Doctor 1.2.840.7 [id number] 28474 064 Univers 00:00:00 00:00:00 Only Unassigned, 38134.1.1 ity of [place] 3.104.2.7 [place] .3.247252 Medica l .8 Branch 2020-11-25 2020-11-25 [facility] 1.2.127.712 4296 4592 00:00:00 00:00:00 [facility] 350.1.13.10 [facility] 4.2.7.2.686 [id number] 089 2020-11-25 2020-11-25 Telephone Devin [facility] 1.2.911.343 4493 0821 00:00:00 00:00:00 Robbi Hairston INSEMINATION WORKER 350.1.13.10 [facility] 4.2.7.2.686 MATERNAL 745.6411961 & CHILD [address] [place] [address] 2020-11-14 2020-11-14 Abstract Clark 1.2.840.1 [id number] 79688 15858 Methodi 00:00:00 00:00:[address] 3.430.2.7 Hospit a .3.241157 l .8 2020-11-14 2020-11-14 Telephone Clark 1.2.840.1 [id number] 2100 459849 Methodi 00:00:00 00:00:[address] 3.430.2.7 Hospit a .3.056778 l .8 2020-11-12 2020-11-12 Outpatient [facility] [id number] Univers 08:30:00 08:30:00 SANTIAGO ity of [facility] 2020-11-07 2020-11-07 Telephone Agustina Ortiz 6400 1.2.840.11 4 [id number] [place] 00:00:00 00:00:[address] 350.1.13.58 Health 9.2.7.2.686 802.1087942 1 2020-11-07 2020-11-07 Telephone Diana UTP 6400 1.2.840.114 124 [id number] 00:00:00 00:00:[address] 350.1.13.58 9.2.7.2.686 513.6729955 1 2020-10-31 2020-10-31 Office Hematpour, UTP 6400 1.2.840.114 12 [id number] [place] 07:54:00 09:45:[address] 350.1.13.58 Health 9.2.7.2.686 121.5641432 1 2020-10-30 2020-10-30 Abstract Rody Maguire UTP 6400 1.2.840.1 14 [id number] [place] 00:00:00 00:00:[address] 350.1.13.58 Health 9.2.7.2.686 [id number] 1 2020-10-29 2020-10-29 Refill East, 1.2.840.8 [id number] 68896 400 Univers 00:00:00 00:00:00 Santiago 08197.1.1 ity of 3.104.2.7 [place] .3.997405 Medica l .8 [place] 2020-10-29 2020-10-29 Refill East, 1.2.840.2 3459677940 45716 400 Univers 00:00:00 00:00:00 [place] 91371.1.1 ity of 3.104.2.7 [place] .3.064328 Medica l .8 [place] 2020-10-27 2020-10-27 Telephone Jailyn 1.2.840.5 [id number] 21 [id number] Methodi 00:00:00 00:00:[address] 3.430.2.7 Hospit a .3.792321 l .8 2020-10-24 2020-10-24 Telephone [place], 1.2.840.1 [id number] 2100 [id number] Methodi 00:00:00 00:00:[address] 3.430.2.7 Hospit a .3.648822 l .8 2020-10-22 2020-10-22 Outpatient R SELF, [facility] [id number] Univers 13:00:00 13:00:00 GADIEL raheemcharlie [facility] 2020-10-22 2020-10-22 Travel 1.2.840.1 1.2.505.888 5981 3839 Univers 00:00:00 00:00:00 11715.1.1 350.1.13.10 ity of 3.104.2.7 4[place]7.3.698 [place] .3.291998 084.8 Medica l .8 [place] 2020-10-22 2020-10-22 Travel 1.2.840.1 1.2.154.758 5304 3839 Univers 00:00:00 00:00:00 71853.1.1 350.1.13.10 ity of 3.104.2.[place].3.698 [place] .3.259015 084.8 Medica l .8 [place] 2020-10-13 2020-10-13 Outpatient R SELF, [facility] [id number] Univers 08:45:00 08:45:00 GADIEL vogel [facility] 2020-10-06 2020-10-12 Telemedici Jailyn, 1.2.840.1 [id number] 21 [id number] Methodi 15:30:00 00:08:46 ne Ray 53832.1.[address] 3.430.2.7 Hospit a .3.753281 l .8 2020-09-30 2020-09-30 Telephone Jailyn, 1.2.840.8 [id number] 21 [id number] Methodi 00:00:00 00:00:[address] 3.430.2.7 Hospit a .3.150158 l .8 2020-09-21 2020-09-21 Travel 1.2.840.1 1.2.541.838 0478 [id number] Methodi 00:00:00 00:00:[address] 3.430.2.7 0.2.7.3.698 Ho spita .3.717363 084.8 l .8 2020-09-06 2020-09-06 [facility] 1.2.840.1 [id number] 28454 Methodi 17:42:30 23:59:[address] 3.430.2.7 Hospit a .3.694181 l .8 2020-09-06 2020-09-06 [facility], 1.2.840.1 [id number] 2100 [id number] Methodi 16:50:00 17:41:00 Encounter Ray [address]84.1.[address] 3.430.2.7 Hospit a .3.340041 l .8 2020-09-05 2020-09-05 [facility], 1.2.840.1 [id number] 2099 [id number] Methodi 09:17:00 19:45:00 Encounter Ray [address]42.1.[address] 3.430.2.7 Hospit a .3.315868 l .8 2020-09-05 2020-09-05 Surgery [facility], 1.2.840.1 [id number] 34908 Methodi 11:30:00 13:15:[address] 3.430.2.7 Hospit a .3.137549 l .8 2020-09-05 2020-09-05 Anesthesia [facility], 1.2.840.1 [id number] 714 [id number] Methodi 11:27:00 12:20:00 Event Johnathanthi 87710.1.1 243 s t V. 3.430.2.7 Hospit a .3.877189 l .8 2020-09-05 2020-09-05 Travel 1.2.840.1 1.2.388.720 0022 601016 Methodi 00:00:00 00:00:[address] 3.430.2.7 0.2.7.3.698 Ho spita .3.206444 084.8 l .8 2020-09-04 2020-09-04 Telephone [place], 1.2.840.1 [id number] Methodi 00:00:00 00:00:00 Sarai Lieberman 05023.1.1 762 s t 3.430.2.7 Hospit a .3.630371 l .8 2020-09-02 2020-09-02 Telephone [place], 1.2.840.6 [id number] Methodi 00:00:00 00:00:00 Sarai Lieberman 57254.1.1 344 s t 3.430.2.7 Hospit a .3.305444 l .8 2020-08-29 2020-08-30 [id number] [facility] 10:20:00 14:10:00 Outpatient r [place] 00 l [facility] 2020-08-29 2020-08-30 Outpatient [place], [facility] CAR 7500 [facility] 05:20:00 09:10:00 BEVERLY 2020-08-06 2020-08-06 Office [place], 1.2.840.7 [id number] Univers 08:03:23 09:17:49 Visit [place] 62631.1.1 itcharlie 3.104.2.7 [facility]3.776636 Medica l .8 [place] 2020-08-06 2020-08-06 [facility] [id number] Univers 08:30:00 08:30:00 SANTIAGO barbosa [facility] 2020-07-14 2020-07-14 [facility] [id number] Univers 09:30:00 09:30:00 GADIEL barbosa o f [facility] 2020-07-14 2020-07-14 Travel 1.2.840.1 1.2.711.492 1671 [id number] Univers 00:00:00 00:00:00 96459.1.1 350.1.13.10 ity of 3.104.2.7 [place].3.698 [place] .3.723076 084.8 Medica l .8 [place] 2020-07-14 2020-07-14 Orders Doctor 1.2.840.6 [id number] Univers 00:00:00 00:00:00 Only Unassigned, 30843.1.1 ity of [place] 3.104.2.7 [place] .3.912930 Medica l .8 [place] 2020-06-16 2020-06-16 Outpatient R [facility] [id number] Univers 08:00:00 08:00:00 GADIEL barbosa o f [facility] 2020-06-06 2020-06-06 Telephone East, 1.2.840.7 [id number] Univers 00:00:00 00:00:00 Santiago 42732.1.1 ity of 3.104.2.7 [place] .3.574494 Medica l .8 [place] 2020-06-04 2020-06-04 Installations Inspector Santiago Cardenas 1.2.840.1 [id number] Univers 09:31:58 09:40:12 Visit [facility] 36693.1.1 ity of 3.104.2.7 [place] .3.389523 Medica l .8 [place] 2020-06-04 2020-06-04 Office [facility] 1.2.354.347 [id number] Univers 08:13:41 09:28:25 Visit Santiago [facility] 350.1.13.10 i ty of CL[place] [id number] [facility] porfirio 089 [place] 2020-06-04 2020-06-04 [facility] [id number] Univers 08:30:00 08:30:00 SANTIAGO itcharlie of [facility] 2020-06-04 2020-06-04 Orders Doctor 1.2.840.5 [id number] Univers 00:00:00 00:00:00 Only Unassigned, 51569.1.1 ity of [place] 3.104.2.7 [place] .3.931688 Medica l .8 [place] 2020-05-19 2020-05-19 Telephone East, 1.2.840.3 [id number] Univers 00:00:00 00:00:00 Santiago 08674.1.1 ity of 3.104.2.7 [place] .3.442179 Medica l .8 [place] 2020-04-24 2020-04-24 Telephone East, 1.2.840.0 [id number] Univers 00:00:00 00:00:00 Santiago 32341.1.1 ity of 3.104.2.7 [place] .3.077468 Medica l .8 [place] 2020-04-14 2020-04-14 Outpatient R [facility], [facility] [id number] Univers 09:00:00 09:00:00 SANTIAGO ity of [facility] 2020-04-14 2020-04-14 Telephone East, 1.2.840.7 [id number] Univers 00:00:00 00:00:00 Santiago 13539.1.1 ity of 3.104.2.7 [place] .3.496404 Medica l .8 [place] 2020-03-31 2020-03-31 Outpatient R [facility], [facility] [id number] Univers 08:30:00 08:30:00 SANTIAGO ity of [facility] 2020-03-03 2020-03-03 Outpatient R SELF, [facility] [id number] Univers 08:00:00 08:00:00 GADIEL rodas [facility] 2020-03-03 2020-03-03 Outpatient R SELF, [facility] [id number] Univers 08:00:00 08:00:00 GADIEL barbosa o f [facility] 2020-03-03 2020-03-03 Travel 1.2.840.1 1.2.096.895 [id number] Univers 00:00:00 00:00:00 68351.1.1 350.1.13.10 ity of 3.104.2.7 4[place].3.698 [place] .3.295193 084.8 Medica l .8 [place] 2020-02-06 2020-02-06 Telephone East, 1.2.840.5 [id number] Univers 00:00:00 00:00:00 Santiago 20578.1.1 ity of 3.104.2.7 [place] .3.146112 Medica l .8 [place] 2020-01-26 2020-01-26 Emergency Caridad, 1.2.840.3 [id number] Univers 10:03:00 13:05:00 Cynise 61840.1.1 ity of 3.104.2.7 [place] .3.215201 Medica l .8 Branch 2020-01-26 2020-01-26 Travel 1.2.840.1 1.2.104.648 [id number] Univers 00:00:00 00:00:00 92389.1.1 350.1.13.10 ity of 3.104.2.7 4[place].3.698 [place] .3.266[place] 084.8 Medica l .8 [place] 2020-01-25 2020-01-25 Outpatient R [facility] [id number] Univers 08:30:00 08:30:00 SANTIAGO ity of [facility] 2020-01-25 2020-01-25 Telemedici East, 1.2.840.0 [id number] Univers 07:36:49 08:06:49 ne Visit Santiago 41247.1.1 ity of 3.104.2.7 [place] .3.441080 Medica l .8 [place] 2020-01-16 2020-01-16 Outpatient R [facility]AST, [facility] [id number] Univers 08:00:00 08:00:00 SANTIAGO ity of [facility] 2020-01-16 2020-01-16 Telephone East, 1.2.840.6 [id number] Univers 00:00:00 00:00:00 Santiago 41271.1.1 ity of 3.104.2.7 [place] .3.231910 Medica l .8 [place] 2020-01-14 2020-01-14 Outpatient R [facility] [id number] Univers 08:00:00 08:00:00 GADIEL rodas [facility] 2019-12-31 2019-12-31 Outpatient R SELF, [facility] [id number] Univers 08:45:00 08:45:00 GADIEL rodas [facility] 2019-10-17 2019-10-17 Outpatient R [facility], [facility] [id number] Univers 08:30:00 08:30:00 SANTIAGO ity [facility] 2019-10-12 2019-10-12 Outpatient R [facility]AST, [facility] [id number] Univers 13:00:00 13:00:00 SANTIAGO ity [facility] 2019-10-12 2019-10-12 Telemedici [place], 1.2.840.5 [id number] Univers 07:38:30 08:08:30 ne Visit Santiago 80801.1.1 ity of 3.104.2.7 [place] .3.835446 Medica l .8 [place] 2019-10-08 2019-10-08 Outpatient R SELF, [facility] [id number] Univers 10:15:00 10:15:00 GADIEL rodas [facility] 2019-10-03 2019-10-03 Case Assman, 1.2.840.7 [id number] Univers 00:00:00 00:00:00 Management Michael Corbin 15065.1.1 i ty of 3.104.2.7 [place] .3.302655 Medica l .8 [place] 2019-09-27 2019-09-27 Telephone East, 1.2.840.3 [id number] Univers 00:00:00 00:00:00 Santiago 00054.1.1 ity of 3.104.2.7 [place] .3.061778 Medica l .8 [place] 2019-09-04 2019-09-04 Refill East, 1.2.840.3 [id number] Univers 00:00:00 00:00:00 Santiago 91178.1.1 ity of 3.104.2.7 [place] .3.707024 Medica l .8 [place] 2019-07-24 2019-07-24 Outpatient R [facility], [facility] [id number] Univers 08:30:00 08:30:00 SANTIAGO ity of [facility] 2019-07-17 2019-07-17 [facility] [id number] Univers 10:00:00 10:00:00 SANTIAGO itcharlie [facility] 2019-06-15 2019-06-15 Telephone East, 1.2.840.2 [id number] Univers 00:00:00 00:00:00 Santiago 69069.1.1 ity of 3.104.2.7 [place] .3.703257 Medica l .8 [place] 2019-06-13 2019-06-13 Telephone Team, [facility] 1.2.840.7 [id number] Univers 00:00:00 00:00:00 Health 79798.1.1 [place] .3.685342 Medica [place] .8 [place] 2019-05-10 2019-05-10 Refill Ronald, 1.2.840.8 [id number] Univers 00:00:00 00:00:00 Santiago 81842.1.1 ity of 3.104.2.7 [place] .3.506239 Medica l .8 [place] 2019-05-09 2019-05-09 Refill Ronald, 1.2.840.3 [id number] Univers 00:00:00 00:00:00 Santiago 89961.1.1 ity of 3.104.2.7 [place] .3.915581 Medica l .8 [place] 2019-04-30 2019-04-30 Outpatient R RODO [facility] [id number] Univers 10:15:00 10:33:05 GADIEL barbosa o f [facility] 2019-04-18 2019-04-18 Installations Inspector [place] Cardenas 1.2.840.1 [id number] Univers 10:00:39 10:44:31 Visit [facility] 25666.1.1 ity of 3.104.2.7 [place] .3.685114 Medica l .8 [place] 2019-04-18 2019-04-18 Outpatient R RONALD [facility] [id number] Univers 10:00:00 10:44:31 SANTIAGO ity of [facility] 2019-04-18 2019-04-18 Office East, 1.2.840.5 [id number] Univers 08:27:44 09:53:27 Visit Santiago 78524.1.1 ity of 3.104.2.7 [place] .3.153219 Medica l .8 [place] 2019-04-18 2019-04-18 Orders Doctor 1.2.840.7 [id number] Univers 00:00:00 00:00:00 Only Unassigned, 36477.1.1 ity of [place] 3.104.2.7 [place] .3.806335 Medica l .8 [place] 2019-04-11 2019-04-11 Refill East, 1.2.840.9 [id number] Univers 00:00:00 00:00:00 [place] 35611.1.1 ity of 3.104.2.7 [place] .3.594729 Medica l .8 [place] 2019-04-09 2019-04-09 Refill East, 1.2.840.2 [id number] Univers 00:00:00 00:00:00 [place] 57641.1.1 ity of 3.104.2.7 [place] .3.588424 Medica l .8 [place] 2019-04-03 2019-04-03 Telephone Team, [facility] 1.2.840.6 [id number] Univers 00:00:00 00:00:00 Health 82452.1.1 [place].2.[place] .3.016326 Medica l .8 [place] 2019-03-27 2019-03-27 Telephone Self, 1.2.840.3 [id number] Univers 00:00:00 00:00:00 Gadiel 39918.1.1 ity of 3.104.2.7 [place] .3.632735 Medica l .8 [place] 2019-01-17 2019-01-17 Office East, 1.2.840.7 [id number] Univers 07:37:21 10:32:51 Visit Santiago 38465.1.1 ity of 3.104.2.7 [place] .3.926505 Medica l .8 [place] 2019-01-04 2019-01-12 Office Eveline Hansen 1.2.840.9 [id number] Univers 11:19:32 11:08:05 Visit Mariela 55965.1.1 ity of 3.104.2.7 [place] .3.526153 Medica l .8 Branch 2019-01-10 2019-01-10 Telephone Stanislav, 1.2.840.5 [id number] Univers 00:00:00 00:00:00 Eladio Inman 13543.1.1 ity of 3.104.2.7 [place] .3.818019 Medica l .8 Branch 2018-12-18 2018-12-18 Office Geraldine, 1.2.840.4 [id number] Univers 08:48:45 09:13:43 Visit Leyda 75571.1.1 it y of 3.104.2.7 [place] .3.693232 Medica l .8 [place] 2018-10-30 2018-10-30 Telephone East, 1.2.840.6 [id number] Univers 00:00:00 00:00:00 [place] 57331.1.1 ity of 3.104.2.7 [place] .3.445055 Medica l .8 [place] 2018-10-23 2018-10-23 Orders Doctor 1.2.840.8 [id number] Univers 00:00:00 00:00:00 Only Unassigned, 21551.1.1 ity of [place] 3.104.2.7 [place] .3.494773 Medica l .8 Branch 2018-10-23 2018-10-23 Nurse Selvin, 1.2.840.2 [id number] Univers 00:00:00 00:00:00 Triage Stefanie 98904.1.1 ity of 3.104.2.7 [place] .3.264881 Medica l .8 Branch 2018-10-23 2018-10-23 Telephone Self, 1.2.840.3 [id number] Univers 00:00:00 00:00:00 Gadiel 71539.1.1 ity of 3.104.2.7 [place] .3.347861 Medica l .8 Branch 2018-10-20 2018-10-20 Telephone Self, 1.2.840.3 [id number] Univers 00:00:00 00:00:00 Gadiel 86363.1.1 ity of 3.104.2.7 [place] .3.335058 Medica l .8 [place] Results Test Description Test Time Test Comments Results Result Comments Source BASIC METABOLIC PANEL (NA, K, CL, CO2, GLUCOSE, BUN, 2022-04 21:43:42 CREATININE, CA) Test Item Value Reference Range Interpretation Comme nts NA (test code = 4611306081) 142 mmol/L 135-145 K (test code = 9158540684) 3.5 mmol/L 3.5-5.0 CL (test code = 4213141031) 106 mmol/L 98-108 CO2 TOTAL (test code = 4572881777) 26 mmol/L 23-31 AGAP (test code = 5761509943) 2-16 BUN (test code = 2102137129) 29 mg/dL 7-23 H GLUCOSE (test code = 9249868781) 84 mg/dL 70-110 CREATININE (test code = 1.16 mg/dL 0.50-1.04 H 0762676800) CALCIUM (test code = 3586028501) 8.2 mg/dL 8.6-10.6 L eGFR (test code = 0777472280) mL/min/1.73m2 KYLE (test code = KYLE) Association [...] tests). Lab Interpretation (test code = Abnormal 20576-6) [facility] WITH [id number] 21:33:01 Test Item Value Reference Range Interpretation [...] (test code = 50.7 fL 39.0-49.9 H 16904-6) RDW-CV (test code = 14.6 % 12.0-15.5 788-0) PLT (test code = See_Comment L [Automated 777-3) message] The sy stem which generated this result transmitted reference range : 166 - 358 10*3/ ?L. The reference r abbey was not used to interpret this result as normal/abnormal . MPV (test code = 8.8 fL 9.5-12.9 L 10794-2) NRBC/100 WBC (test See_Comment [Automat ed code = 9245320570) message] The system which generated this result transmitted reference range : 0.0 - 10.0 /100 WBCs. The refer ence range was not u sed to interpret th is result as normal/abnormal . NRBC x10^3 (test code See_Comment [Auto mated = 0786899654) message] The s ystem which generated this result transmitted reference range : 10*3/?L. The reference range was not used to interpret this result as normal/abnormal . GRAN MAT (NEUT) % 70.9 % (test code = 770-8) IMM GRAN % (test code 0.50 % = 6379296301) LYMPH % (test code = 17.4 % 736-9) MONO % (test code = 9.0 % 5905-5) EOS % (test code = 1.7 % 713-8) BASO % (test code = 0.5 % 706-2) GRAN MAT x10^3(ANC) 4.60 10*3/uL 1.88-7.09 (test code = 7678260946) IMM GRAN x10^3 (test 0.03 10*3/uL 0.00-0.06 code = 2206166345) LYMPH x10^3 (test code 1.13 10*3/uL 1.32-3.29 L = 731-0) MONO x10^3 (test code 0.58 10*3/uL 0.33-0.92 = 742-7) EOS x10^3 (test code = 0.11 10*3/uL 0.03-0.39 711-2) BASO x10^3 (test code 0.03 10*3/uL 0.01-0.07 = 704-7) Lab Interpretation Abnormal (test code = 40411-7) [facility] [id number] 06:01:07 Test Item Value Reference Range Interpretation Comments Blood Culture-Aerobic No organisms No growth Previo us (test code = 02942-0) isolated prelim inary verified result was Culture [...] Culture-Anaerobic isolated preliminar y (test code = 43150-2) verifi ed result was Culture In Progress [...] CDT Lab Interpretation Normal (test code = 83144-3) [facility] [id number] 06:01:07 Test Item Value Reference Range Interpretation Comments Blood Culture-Aerobic No organisms No growth Previo us (test code = 44175-3) isolated prelim inary verified result was Culture [...] Culture-Anaerobic isolated preliminar y (test code = 22537-5) verifi ed result was Culture In Progress [...] CDT Lab Interpretation Normal (test code = 93766-4) [facility] [id number] 06:01:07 Test Item Value Reference Range Interpretation Comments Blood Culture-Aerobic No organisms No growth Previo us (test code = 63114-3) isolated prelim inary verified result was Culture [...] Culture-Anaerobic isolated preliminar y (test code = 13712-6) verifi ed result was Culture In Progress [...] CDT Lab Interpretation Normal (test code = 22348-6) [facility] [id number] 10:49:10 Test Item Value Reference Range Interpretation Comments NT-proBNP (test code 2660 pg/mL See_Comment H [Autom ated = 4283009557) message] The system which generated this result transmitted reference range : <=125. The reference range was not used to interpret this result as normal/abnormal . KYLE (test code = KYLE) Biotin has been reported to cause a negative bias, interpret results relative to patient's use of biotin. Lab Interpretation Abnormal (test code = 12823-6) [facility] [id number] 10:49:10 Test Item Value Reference Range Interpretation Comments NT-proBNP (test code 2660 pg/mL See_Comment H [Autom ated = 1958997809) message] The system which generated this result transmitted reference range : <=125. The reference range was not used to interpret this result as normal/abnormal . KYLE (test code = KYLE) Biotin has been reported to cause a negative bias, interpret results relative to patient's use of biotin. Lab Interpretation Abnormal (test code = 05468-2) [facility] (NA, K, CL, CO2, GLUCOSE, BUN, CREATININE, CA)2022-02-15 10:44:07 Test Item Value Reference Range Interpretation Comments NA (test code = 134 mmol/L 135-145 L 3179233904) K (test code = 3.2 mmol/L 3.5-5 L 2158026168) CL (test code = 98 mmol/L 98-108 9756507289) CO2 TOTAL (test code = 27 mmol/L 23-31 4257118315) AGAP (test code = 2-16 5162317675) BUN (test code = 19 mg/dL 7-23 6176850252) GLUCOSE (test code = 102 mg/dL 70-110 9232091216) CREATININE (test code = 0.95 mg/dL 0.5-1.04 6361434007) CALCIUM (test code = 8.5 mg/dL 8.6-10.6 L 3801225769) eGFR (test code = mL/min/1.73m2 4057438252) KYLE (test code = KYLE) Association of [...] tests). Lab Interpretation Abnormal (test code = 39166-1) [facility] 10[facility]44[facility]07 Test Item Value Reference Range Interpretation Comments MAGNESIUM (test code = 9364502202) 1.8 mg/dL 1.7-2.4 Lab Interpretation (test code = Normal 68421-8) [facility] 10:44:07 Test Item Value Reference Range Interpretation Comments MAGNESIUM (test code = 9068051539) 1.8 mg/dL 1.7-2.4 Lab Interpretation (test code = Normal 20282-7) [facility] (NA, K, CL, CO2, GLUCOSE, BUN, CREATININE, CA)2022-02-15 10:44:07 Test Item Value Reference Range Interpretation Comments NA (test code = 134 mmol/L 135-145 L 2026396813) K (test code = 3.2 mmol/L 3.5-5.0 L 6859170147) CL (test code = 98 mmol/L 98-108 5782860721) CO2 TOTAL (test code = 27 mmol/L 23-31 2140730544) AGAP (test code = 2-16 6828639835) BUN (test code = 19 mg/dL 7-23 9035184774) GLUCOSE (test code = 102 mg/dL 70-110 6480632362) CREATININE (test code = 0.95 mg/dL 0.50-1.04 2289897452) CALCIUM (test code = 8.5 mg/dL 8.6-10.6 L 4172993450) eGFR (test code = mL/min/1.73m2 6516049502) KYLE (test code = KYLE) Association of [...] tests). Lab Interpretation Abnormal (test code = 34552-7) [facility] WITH [id number] 10:12:06 Test Item Value Reference Range Interpretation Comments WBC (test code = See_Comment L [Automated 8590-2) message] The sy stem which generated this result transmitted reference range : 4.30 - 11.10 10*3/?L. The reference range was not used to interpret this result as normal/abnormal . RBC (test code = See_Comment L [Automated 529-8) message] The sy stem which generated this [...] RDW-SD (test code = 47.8 fL 39-49.9 28313-9) RDW-CV (test code = 15.2 % 12-15.5 788-0) PLT (test code = See_Comment L [Automated 777-3) message] The sy stem which generated this result transmitted reference range : 166 - 358 10*3/ ?L. The reference r abbey was not used to interpret this result as normal/abnormal . MPV (test code = 8.9 fL 9.5-12.9 L 15854-3) NRBC/100 WBC (test See_Comment [Automat ed code = 2115711586) message] The system which generated this result transmitted reference range : 0.0 - 10.0 /100 WBCs. The refer ence range was not u sed to interpret th is result as normal/abnormal . NRBC x10^3 (test code See_Comment [Auto mated = 3011960505) message] The s ystem which generated this result transmitted reference range : 10*3/?L. The reference range was not used to interpret this result as normal/abnormal . GRAN MAT (NEUT) % 65.9 % (test code = 770-8) IMM GRAN % (test code 0.30 % = 4335176221) LYMPH % (test code = 21.0 % 736-9) MONO % (test code = 10.1 % 5905-5) EOS % (test code = 2.4 % 713-8) BASO % (test code = 0.3 % 706-2) GRAN MAT x10^3(ANC) 2.49 10*3/uL 1.88-7.09 (test code = 0005014033) IMM GRAN x10^3 (test 0-0.06 code = 0809127519) LYMPH x10^3 (test code 0.79 10*3/uL 1.32-3.29 L = 731-0) MONO x10^3 (test code 0.38 10*3/uL 0.33-0.92 = 742-7) EOS x10^3 (test code = 0.09 10*3/uL 0.03-0.39 711-2) BASO x10^3 (test code 0.01-0.07 = 704-7) Lab Interpretation Abnormal (test code = 59354-0) [facility] WITH [id number] 10:12:06 Test Item Value Reference Range Interpretation [...] RDW-SD (test code = 47.8 fL 39.0-49.9 68649-1) RDW-CV (test code = 15.2 % 12.0-15.5 788-0) PLT (test code = See_Comment L [Automated 777-3) message] The sy stem which generated this result transmitted reference range : 166 - 358 10*3/ ?L. The reference r abbey was not used to interpret this result as normal/abnormal . MPV (test code = 8.9 fL 9.5-12.9 L 80164-3) NRBC/100 WBC (test See_Comment [Automat ed code = 4511924589) message] The system which generated this result transmitted reference range : 0.0 - 10.0 /100 WBCs. The refer ence range was not u sed to interpret th is result as normal/abnormal . NRBC x10^3 (test code See_Comment [Auto mated = 3424139698) message] The s ystem which generated this result transmitted reference range : 10*3/?L. The reference range was not used to interpret this result as normal/abnormal . GRAN MAT (NEUT) % 65.9 % (test code = 770-8) IMM GRAN % (test code 0.30 % = 9991493044) LYMPH % (test code = 21.0 % 736-9) MONO % (test code = 10.1 % 5905-5) EOS % (test code = 2.4 % 713-8) BASO % (test code = 0.3 % 706-2) GRAN MAT x10^3(ANC) 2.49 10*3/uL 1.88-7.09 (test code = 0959500574) IMM GRAN x10^3 (test 0.00-0.06 code = 6507101816) LYMPH x10^3 (test code 0.79 10*3/uL 1.32-3.29 L = 731-0) MONO x10^3 (test code 0.38 10*3/uL 0.33-0.92 = 742-7) EOS x10^3 (test code = 0.09 10*3/uL 0.03-0.39 711-2) BASO x10^3 (test code 0.01-0.07 = 704-7) Lab Interpretation Abnormal (test code = 40500-0) [facility] WITH [id number] 11:18:28 Test Item Value Reference Range Interpretation [...] RDW-SD (test code = 49.5 fL 39-49.9 09630-7) RDW-CV (test code = 15.5 % 12-15.5 788-0) PLT (test code = See_Comment L [Automated 777-3) message] The sy stem which generated this result transmitted reference range : 166 - 358 10*3/ ?L. The reference r abbey was not used to interpret this result as normal/abnormal . MPV (test code = 11.4 fL 9.5-12.9 41178-6) IPF % (test code = 8.7 % 1.3-7.7 H Platelet count 0074489236) measured by fluorescence method. NRBC/100 WBC (test See_Comment [Automat ed code = 5046515092) message] The system which generated this result transmitted reference range : 0.0 - 10.0 /100 WBCs. The refer ence range was not u sed to interpret th is result as normal/abnormal . NRBC x10^3 (test code See_Comment [Auto mated = 5430480673) message] The s ystem which generated this result transmitted reference range : 10*3/?L. The reference range was not used to interpret this result as normal/abnormal . GRAN MAT (NEUT) % 62.0 % (test code = 770-8) IMM GRAN % (test code 0.80 % = 1538808393) LYMPH % (test code = 22.2 % 736-9) MONO % (test code = 9.6 % 5905-5) EOS % (test code = 5.1 % 713-8) BASO % (test code = 0.3 % 706-2) GRAN MAT x10^3(ANC) 2.21 10*3/uL 1.88-7.09 (test code = 3571583468) IMM GRAN x10^3 (test 0.03 10*3/uL 0-0.06 code = 5436596792) LYMPH x10^3 (test code 0.79 10*3/uL 1.32-3.29 L = 731-0) MONO x10^3 (test code 0.34 10*3/uL 0.33-0.92 = 742-7) EOS x10^3 (test code = 0.18 10*3/uL 0.03-0.39 711-2) BASO x10^3 (test code 0.01-0.07 = 704-7) POLYCHROMASIA (test 2+ See_Comment [Automa arpit code = 72278-9) message] The system which generated this result [...] . Lab Interpretation Abnormal (test code = 30727-3) [facility] METABOLIC PANEL (NA, K, CL, CO2, GLUCOSE, BUN, CREATININE, CA)2022-02-13 10:39:07 Test Item Value Reference Range Interpretation Comments NA (test code = 136 mmol/L 135-145 4925205266) K (test code = 4.1 mmol/L 3.5-5 7698055496) CL (test code = 102 mmol/L 98-108 5990697539) CO2 TOTAL (test code = 27 mmol/L 23-31 1587868791) AGAP (test code = 2-16 6942385101) BUN (test code = 22 mg/dL 7-23 6878579797) GLUCOSE (test code = 94 mg/dL 70-110 0750716713) CREATININE (test code = 0.94 mg/dL 0.5-1.04 3883528749) CALCIUM (test code = 8.1 mg/dL 8.6-10.6 L 6514078677) eGFR (test code = mL/min/1.73m2 6995725336) KYLE (test code = KYLE) Association of [...] tests). Lab Interpretation Abnormal (test code = 57834-0) [facility] 01:50:10 Test Item Value Reference Range Interpretation Comments Height (test code = in 0617042070) Weight (test code = lbs 7234920660) Systolic BP (test code mmHg = 0102413119) Diastolic BP (test code mmHg = 5620156867) Heart Rate (test code = bpm 8590442993) BSA (test code = 1.85 m2 5761780003) IVS (test code = 1.22 cm 0093892446) Interventricular Septum 1.22 cm Diastolic Thickness by 2D (test code = 9235354) LVIDD (test code = 5.00 cm 1861792658) Left Ventricular End 117.9 mL Diastolic Volume by Teichholz Method (test code = 6565353) LVPWD (test code = 1.22 cm 0008115660) PW (test code = 1.22 cm 0.6-1.3 0684068090) EF(Teich) (test code = 74.60 % 3565622828) LVIDS (test code = 2.80 cm 5269855438) Left Ventricular End 29.9 mL Systolic Volume by Teichholz Method (test code = 6910573) FS (test code = 44 % 1107561904) EF - 2D (test code = 74.60 % 64144004) LVOT diameter (test 2.16 cm code = 8554536822) LVOT area (test code = 3.70 cm2 6446937559) Ao root diam (test code 3.40 cm = 9807010716) Aortic root (test code 3.4 cm = 3307090738) Ao root annulus (test 3.4 cm code = 6412148045) LA size (test code = 3.4 cm 1820690090) TR Peak Spencer (test code 330.0 cm/s = 4130464528) Triscuspid Valve mmHg Regurgitation Peak Gradient (test code = 7123401654) PV REGURGITATION PEAK mmHg GRADIENT (test code = 5118679922) PI dec slope (test code 137.20 cm/s2 = 6125156343) LAV(MOD-sp4) (test code 102.90 mL = 2924892068) MV Peak E Spencer (test 84.1 cm/s code = 0043640058) MV Peak A Spencer (test 40.1 cm/s code = 6944233028) E/A ratio (test code = ratio 4632367357) MV valve area p 1/2 3.70 cm2 method (test code = 3586311895) MV dec slope (test code 413.00 cm/s2 = 4378408287) MV P1/2t max spencer (test 83.70 cm/s code = 5553276814) MV Prop V (test code = 41.80 cm/s 2317106326) Tapse (test code = 1.83 cm 9506524454) LVOT stroke volume 96.90 cm3 (test code = 7038618247) LVOT peak spencer (test 125.5 cm/s code = 6210906010) LVOT mn grad (test code mmHg = 8539293476) AV LVOT peak gradient mmHg (test code = 0211133968) LVOT peak VTI (test 26.4 cm code = 7197083745) LV V1 mean (test code = 78.10 cm/s 7847619664) Aortic valve mean 103.7 cm/s velocity (test code = 1708194063) Ao peak spencer (test code 165.6 cm/s = 3538279290) Ao VTI (test code = 37.2 cm 0882390233) AV area by cont VTI 2.6 cm2 (test code = 4322216629) AV area peak spencer (test 2.8 cm2 code = 1439787695) Ao max PG (test code = 11.00 mm[Hg] 7222887869) AV peak gradient (test mmHg code = 2146585524) AV valve area (test 2.60 cm2 code = 3677523501) AV mean gradient (test mmHg code = 8839808659) LA Volume Index (BP) 55.2 mL/m2 (test code = 2554612569) LA volume (BP) (test 102.1 mL code = 0079362456) LAV(MOD-sp2) (test code 86.10 mL = 0656778077) A2C EF (test code = 61.20 % 3508599682) EF(sp2-el) (test code = 61.60 % 2636990848) SV(MOD-sp2) (test code 47.10 mL = 4668667646) LV Diastolic Volume 70.7 mL (BP) (test code = 1932624292) A4C EF (test code = 53.00 % 5297784300) EF(MOD-bp) (test code = 56.70 % 3374048724) EF(sp4-el) (test code = 53.90 % 0601914906) LV Systolic Volume (BP) 30.6 mL (test code = 9305336736) SV(MOD-bp) (test code = 40.10 mL 0818103465) SV(MOD-sp4) (test code 32.40 mL = 1029952289) SV(sp4-el) (test code = 33.10 mL 1663299770) EF (test code = 7687572875) Left Ventricular Stroke 40.1 mL Volume by 2-D Biplane-MOD (test code = 0441968) LV Diastolic Volume 38.2 mL/m2 Index (BP) (test code = 5242449982) LV Systolic Volume 16.5 mL/m2 Index (BP) (test code = 5454738059) Radiology Study observation (narrative) (test code = 43863-1) KYLE (test code = KYLE) ?Left?Ventricle: Left [...] 1.00The left ventricular wall motion is normal. [facility] [id number] 05:45:01 Test Item Value Reference Interpretation Comments Range TROPONIN I (test See_Comment [Automated code = 1079152802) message] The system which generated this result [...] biotin. Lab Interpretation Normal (test code = 01240-9) [facility]MINAL ELE-[id number] 05:41:40 Test Item Value Reference Range Interpretation Comments NT-proBNP (test code 4250 pg/mL See_Comment H [Autom ated = 1351971828) message] The system which generated this result transmitted reference range : <=125. The reference range was not used to interpret this result as normal/abnormal . KYLE (test code = KYLE) Biotin has been reported to cause a negative bias, interpret results relative to patient's use of biotin. Lab Interpretation Abnormal (test code = 31350-1) [facility]ACTIV[facility] THRMPLAS [id number] 05:35:21 Test Item Value Reference Range Interpretation Comments APTT Patient (test See_Comment [Automat ed code = 3173-2) message] The system which generated this result transmitted reference range : 23 - 38 Seconds . The reference range was not used to interpr et this result as normal/abnormal . KYLE (test code = KYLE) The [facility] patient population mean normal value for aPTT is 30 seconds. Lab Interpretation Normal (test code = 16696-0) [facility] [id number] 05:35:21 Test Item Value Reference Range Interpretation Comments APTT Patient (test See_Comment [Automat ed code = 3173-2) message] The system which generated this result transmitted reference range : 23 - 38 Seconds . The reference range was not used to interpr et this result as normal/abnormal . KYLE (test code = KYLE) The [facility] patient population mean normal value for aPTT is 30 seconds. Lab Interpretation Normal (test code = 75445-3) [facility] HospitalPROTHROMBIN TIME / [id number] 05:33:21 Test Item Value Reference Range Interpretation [...] tions. Lab Interpretation (test Normal code = 09541-7) [facility]COMP[facility] METABOLIC PANEL (30804)2022-02-11 05:33:21 Test Item Value Reference Range Interpretation Comments NA (test code = 137 mmol/L 135-145 7271315125) K (test code = 4.3 mmol/L 3.5-5 0591224040) CL (test code = 103 mmol/L 98-108 8738967334) CO2 TOTAL (test code = 25 mmol/L 23-31 6659226009) AGAP (test code = 2-16 5752384217) BUN (test code = 19 mg/dL 7-23 9962655767) GLUCOSE (test code = 120 mg/dL 70-110 H 1104485362) CREATININE (test code = 1.15 mg/dL 0.5-1.04 H 6843707020) TOTAL BILI (test code = 0.9 mg/dL 0.1-1.9 5427963894) CALCIUM (test code = 8.9 mg/dL 8.6-10.6 8236612493) T PROTEIN (test code = 6.6 g/dL 6.3-8.2 5585376586) ALBUMIN (test code = 4.0 g/dL 3.5-5 8492614041) ALK PHOS (test code = 73 U/L 34-122 7180260473) ALTv (test code = 18 U/L 5-35 2-6) AST(SGOT) (test code = 31 U/L 13-40 3722302878) eGFR (test code = mL/min/1.73m2 3867035824) KYLE (test code = KYLE) Association of [...] tests). Lab Interpretation Abnormal (test code = 59995-2) [facility]. METABOLIC PANEL (98276)2022-02-11 05:33:21 Test Item Value Reference Range Interpretation Comments NA (test code = 137 mmol/L 135-145 1246274837) K (test code = 4.3 mmol/L 3.5-5.0 1519056197) CL (test code = 103 mmol/L 98-108 6759613939) CO2 TOTAL (test code = 25 mmol/L 23-31 3115291527) AGAP (test code = 2-16 6167653737) BUN (test code = 19 mg/dL 7-23 9492201526) GLUCOSE (test code = 120 mg/dL 70-110 H 7423471189) CREATININE (test code = 1.15 mg/dL 0.50-1.04 H 9448943046) TOTAL BILI (test code = 0.9 mg/dL 0.1-1.3 2637564979) CALCIUM (test code = 8.9 mg/dL 8.6-10.6 4103849976) T PROTEIN (test code = 6.6 g/dL 6.3-8.2 3415390599) ALBUMIN (test code = 4.0 g/dL 3.5-5.0 6198937694) ALK PHOS (test code = 73 U/L 34-122 1787389321) ALTv (test code = 18 U/L 5-35 1742-6) AST(SGOT) (test code = 31 U/L 13-40 7865451903) eGFR (test code = mL/min/1.73m2 1321584660) KYLE (test code = KYLE) Association of [...] tests). Lab Interpretation Abnormal (test code = 66900-4) [facility] HospitalPROTHROMBIN TIME / [id number] 05:33:21 Test Item Value Reference Range Interpretation [...] tions. Lab Interpretation (test Normal code = 29094-9) [facility] HospitalCB WITH KAJF5427-53-06 05:14:37 Test Item Value Reference Range Interpretation Comments WBC (test code = See_Comment [Automated 6690-2) message] The sy stem which generated this result transmitted reference range : 4.30 - 11.10 10*3/?L. The reference range was not used to interpret this result as normal/abnormal . RBC (test code = See_Comment L [Automated 749-8) message] The sy stem which generated this [...] RDW-SD (test code = 47.9 fL 39-49.9 67050-8) RDW-CV (test code = 14.9 % 12-15.5 788-0) PLT (test code = See_Comment L [Automated 777-3) message] The sy stem which generated this result transmitted reference range : 166 - 358 10*3/ ?L. The reference r abbey was not used to interpret this result as normal/abnormal . MPV (test code = 9.1 fL 9.5-12.9 L 30279-4) NRBC/100 WBC (test See_Comment [Automat ed code = 0151485040) message] The system which generated this result transmitted reference range : 0.0 - 10.0 /100 WBCs. The refer ence range was not u sed to interpret th is result as normal/abnormal . NRBC x10^3 (test code See_Comment [Auto mated = 8278574227) message] The s ystem which generated this result transmitted reference range : 10*3/?L. The reference range was not used to interpret this result as normal/abnormal . GRAN MAT (NEUT) % 78.5 % (test code = 770-8) IMM GRAN % (test code 0.20 % = 9329182376) LYMPH % (test code = 11.6 % 736-9) MONO % (test code = 8.4 % 5905-5) EOS % (test code = 1.1 % 713-8) BASO % (test code = 0.2 % 706-2) GRAN MAT x10^3(ANC) 3.45 10*3/uL 1.88-7.09 (test code = 2550437007) IMM GRAN x10^3 (test 0-0.06 code = 9231888784) LYMPH x10^3 (test code 0.51 10*3/uL 1.32-3.29 L = 731-0) MONO x10^3 (test code 0.37 10*3/uL 0.33-0.92 = 742-7) EOS x10^3 (test code = 0.05 10*3/uL 0.03-0.39 711-2) BASO x10^3 (test code 0.01-0.07 = 704-7) Lab Interpretation Abnormal (test code = 31669-7) [facility] Coronavirus 2019 Tedyzte5958-24-32 18:08:00 Test Item Value Reference Range Interpretation [...] storag e conditions, and /or stageof infection. Iseha l RNA mutations, vacc inations, antiviraltherap eutics, antibiotics, chemotherapeuti c orimmunosuppres ashley drugs have not been e valuated for effectson d etection. Results are for the identification of SARS-CoV-2 RNA usingreal-time (RT) polymerase sedrick n reaction (PCR) technolog yfor the qualitative det ection of nucleic acids f rom ulbEKUW-MfB-0 v irus and diagnosis of SA RS-CoV-2 virusinfection. It is an Emergency Use Authorization ( EUA) testauthorized by the U.S. FDA. BASIC METABOLIC ZFYBY6812-89-76 09:37:00 Test Item Value Reference Range Interpretation [...] = 9.0 mg/dL 8.0-10.5 N CA) PROTHROMBIN QITY7959-56-31 09:32:00 Test Item Value Reference Range Interpretation [...] (to prevent recurrent infar ct). 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 [place]Name: LIO WATTS : 1955 Sex: F FAX: Carmenza Kelly DO [phone] [place]: St: ADM FAX: Mike Scales MD [phone] FAX: Bahman Chopra [phone] Name: LIO WATTS [facility] Elen Garcia : 1955 Age/S: 66/F [address] [place] [address] Unit #: [id number] Loc: [place] [address] Phys: Bahman Chopra [employer] Acct: [id number] Dis Date: Status: ADM IN PHONE #: [phone] Exam Date: 06/17/2021 1320 FAX #: [phone] Reason: WATCHMAN EXAMS: CPT CODE: [id number] XR CHEST 1 V 23961 PROCEDURE INFORMATION: Exam: XR Chest Exam date [...] signed by: Lambert Vega M.D. CC: Lele Rahamn DO; Mike Lund MD; Bahman Chopra Technologist: RT Taylor(R) Trnscrd Date/Time/By: 06/17/2021 (8002) : By: Susanna Orig Print D/T: S: 06/17/2021 (4191) PAGE 1 Signed ReportCOVID 19 Asymptomatic IH [id number] 12:29:00 Test Item Value Reference Range Interpretation [...] high or waivedcomplexit y tests. BASIC METABOLIC FKNES9156-03-29 11:37:00 Test Item Value Reference Range Interpretation [...] code = 9.0 mg/dL 8.0-10.5 N CA) RBYKXHBQPW4292-62-77 11:37:00 Test Item Value Reference Range Interpretation Comments PREALBUMIN (test code = PREALB) 24.3 mg/dL 16.0-40.0 N PROTHROMBIN VEXN1489-01-75 11:03:00 Test Item Value Reference Range Interpretation [...] (to prevent recurrent infar ct). CBC W/AUTO ARJG6765-24-49 10:59:00 Test Item Value Reference Range Interpretation [...] 0.0-0.1 N NRBC#) - XR CHEST 2 P1214-28-52 00:00:00 [facility] 1955 Sex: F FAX: RobinUrmilaBibiana DanielFranciscokristen Peterson DO [phone] [place]: St: PRE FAX: Mike Scales MD [phone] Name: LIO WATTS [facility] : 1955 Age/S: 66/F [address] [place], [place] [address] Unit #: [id number] Loc: [place] [address] Phys: Mike Lund MD Acct: [id number] Dis Date: Status: PRE [facility] PHONE #: [phone] Exam Date: 06/16/2021 1120 FAX #: [phone] Reason: PREOP EXAMS: CPT CODE: [id number] XR CHEST 2 V 78434 PROCEDURE INFORMATION: Exam: XR Chest Exam date [...] By: [email or web address] Orig Print D/T: S: 06/16/2021 (8005) PAGE 1 Signed ReportGastrointestinal stypq6483-57-21 04:35:05 Test Item Value Reference Interpretation Comments [...] Rotavirus PCR (test Not Detected code = 6979526) Salmonella PCR (test Not Detected code = [...] PCR Not Detected (test code = 7124) [facility] abdtkzv1958-15-27 19:30:47 Test Item Value Reference Range Interpretation Comments Case number (test [id number] code = 5056324) Surgical pathology See link below for PDF report (test code = Lab Report 2255) Result status (test This is Supplemental code = 3047827) Report for [id number] [facility]2021-04-09 16:31:00 Test Item Value Reference Range Interpretation Comments POC Activated Clotting Time (test code 153 s = POC Activated Clotting Time) [facility] HospitalLzrvwecKHJEKAMHBE9690-10-52 16:31:00 Test Item Value Reference Range Interpretation Comments POC Activated Clotting Time (test code 153 s = POC Activated Clotting Time) [facility] HospitalDvwmydkCEJHYFTOTE9284-30-81 16:31:00 Test Item Value Reference Range Interpretation Comments POC Activated Clotting Time (test code 153 s = POC Activated Clotting Time) [facility] HospitalRxqyfdfWPBLAXYINL1013-50-77 16:31:00 Test Item Value Reference Range Interpretation Comments POC Activated Clotting Time (test code 153 s = POC Activated Clotting Time) [facility] HospitalMkrabcoNCKFFMUFVH1259-46-32 16:31:00 Test Item Value Reference Range Interpretation Comments POC Activated Clotting Time (test code 153 s = POC Activated Clotting Time) [facility] HospitalTzvsmjkOREGUUUVUE0913-94-15 16:31:00 Test Item Value Reference Range Interpretation Comments POC Activated Clotting Time (test code 153 s = POC Activated Clotting Time) [facility] HospitalGxugbpjFZQSTQBARZ7406-73-93 16:31:00 Test Item Value Reference Range Interpretation Comments POC Activated Clotting Time (test code 153 s = POC Activated Clotting Time) [facility] HospitalErlzbavYTHFKVINPH9097-05-70 14:37:00 Test Item Value Reference Range Interpretation Comments POC Activated Clotting Time (test code 454 s = POC Activated Clotting Time) [facility] HospitalNflfeuuVLFWMILSTH2607-34-99 14:37:00 Test Item Value Reference Range Interpretation Comments POC Activated Clotting Time (test code 454 s = POC Activated Clotting Time) [facility] HospitalEadaonvTJOKYIPXFR9179-35-72 14:37:00 Test Item Value Reference Range Interpretation Comments POC Activated Clotting Time (test code 454 s = POC Activated Clotting Time) [place] 251771-04-09 14:37:00 Test Item Value Reference Range Interpretation Comments POC Activated Clotting Time (test code 454 s = POC Activated Clotting Time) [facility] HospitalCeohjraDZFIKVYORE4142-37-18 14:37:00 Test Item Value Reference Range Interpretation Comments POC Activated Clotting Time (test code 454 s = POC Activated Clotting Time) [facility] HospitalLnopwqoLCYBAKDRVO6721-01-09 14:37:00 Test Item Value Reference Range Interpretation Comments POC Activated Clotting Time (test code 454 s = POC Activated Clotting Time) [facility] HospitalYzeavegROWELDKXZX3379-30-75 14:37:00 Test Item Value Reference Range Interpretation Comments POC Activated Clotting Time (test code 454 s = POC Activated Clotting Time) [facility] HospitalQdexuxnELMRGURPCJ8252-31-82 14:13:00 Test Item Value Reference Range Interpretation Comments POC Activated Clotting Time (test code 354 s = POC Activated Clotting Time) [facility] HospitalFpcsrqdZUDVIKSHWW1335-02-53 14:13:00 Test Item Value Reference Range Interpretation Comments POC Activated Clotting Time (test code 354 s = POC Activated Clotting Time) [facility] HospitalLoozmeyDYGWGYYPTQ7332-32-75 14:13:00 Test Item Value Reference Range Interpretation Comments POC Activated Clotting Time (test code 354 s = POC Activated Clotting Time) [facility] HospitalKhiignmWHWMICYKJP0535-15-64 14:13:00 Test Item Value Reference Range Interpretation Comments POC Activated Clotting Time (test code 354 s = POC Activated Clotting Time) [facility] HospitalRzrextdYHSEDNJOKG5480-93-06 14:13:00 Test Item Value Reference Range Interpretation Comments POC Activated Clotting Time (test code 354 s = POC Activated Clotting Time) [facility] HospitalQswospaTNUNOEFISF9640-98-92 14:13:00 Test Item Value Reference Range Interpretation Comments POC Activated Clotting Time (test code 354 s = POC Activated Clotting Time) [facility] HospitalDijrbraZLFDBWVJWS3760-92-76 14:13:00 Test Item Value Reference Range Interpretation Comments POC Activated Clotting Time (test code 354 s = POC Activated Clotting Time) [facility] PXVMBVR4591-47-17 10:37:00Negative (08/29/20 5:37 AM) [facility] UZJVX2372-38-76 10:37:79499Sfvzdmzm HermannCHEM PANEL 2020-08-29 10:37:0028[facility]annCHEM JFLQC9030-62-43 10:37:001.01[facility]annCHEM JFBMI1935-73-18 10:37:28001Gnvenugq HermannCHEM MRBXC6431-97-30 10:37:003.8[facility]annCHEM MNJQH9360-98-25 10:37:70674Zoiiefbj HermannCHEM HDSIL2899-12-37 10:37:0028[facility]annCHEM ENQQP5407-33-63 10:37:009.8 [facility]annCHE[facility] MTAAH6236-92-15 10:37:0011.8[facility] HermannCHEM PANEL 2020-08-29 10:37:0059[facility] HermannCHEM NSZYC7260-38-41 10:37:002.9[facility] IyzjinrFKOSAYLITK4082-90-55 10:37:006.8[facility] LaksoyqGGFOISRAQZ6746-08-40 10:37:004.47[facility] MzunkzgDWFZSMIQCI6019-03-96 10:37:0010.6[facility] PXGCWXFXWQ6768-59-41 10:37:0034.0[facility] GrkssprVECOLDBODV9764-34-68 10:37:00 76.1[facility] MefsdbxHGUUKEUVQK9068-92-65 10:37:00 Test Item Value Reference Range Interpretation Comments MCH (test code = MCH) 23.8 pg 27.0-31.0 [facility] NvwnjbwRUBREFNLMF7916-11-43 10:37:0031.3[facility]annHEMATOLOGY 2020-08-29 10:37:0018.2[facility] SpfqjxyOCATIUUBKO4516-64-34 10:37:74165Akkuthos HwihthqUZZEJSXIMS7338-29-47 10:37:007.5[facility] WxhedlwXAYHLPDOUT1851-03-95 10:37:00 Test Item Value Reference Range Interpretation Comments PT (test code = PT) 12.8 s 12.0-14.7 [facility] RhtvzoaOTGFBTAQEV8306-07-04 10:37:00 Test Item Value Reference Range Interpretation Comments INR (test code = INR) 0.97 1 0.85-1.17 [facility] XfhneqrWEDPWWBFER6685-70-71 10:37:00 Test Item Value Reference Range Interpretation Comments PTT (test code = PTT) 25.0 s 22.9-35.8 [facility] XrjegvbAJZXUMMDFA3369-79-38 10:37:0070.5[facility]annHEMATOLOGY 2020-08-29 10:37:0018.8[facility] TxmglwcWEGYWLGITR4812-26-30 10:37:009.5[facility] ZanqwzjVEJJUTFCQL6815-21-95 10:37:000.9[facility] EyhjbclBMMAVHSZWM6105-86-47 10:37:000.3[facility] EqewlibBRADIWFOSI0482-86-35 10:37:004.8[facility] MBVZEOHKDA4152-95-84 10:37:001.3[facility] EaksamvGJUFAWKZFJ1246-74-01 10:37:000.6 [facility] PkqoibfMOWIMHJWTW1931-24-66 10:37:000.1[facility]annHEMATOLOGY 2020-08-29 10:37:001+ *ABN*(08/29/20 5:37 AM)[facility] VudllqrVSAJULYBBM9466-41-00 10:37:00Not Detected (08/29/20 5:37 AM)[facility]annBL[facility] B[facility] RESULTS 2020-08-29 10:37:00Negative (08/29/20 5:37 AM)[facility]annCHEM HSJSM2348-40-35 10:37:23438Kvibxjjr HermannCHEM GZSPD5794-28-51 10:37:0028[facility] HermannCHEM UQGRU0099-49-28 10:37:001.01[facility]annCHEM KOCDL2269-71-00 10:37:28341 [facility]annCHE[facility] NFTII9293-14-46 10:37:003.8[facility] HermannCHEM PANEL 2020-08-29 10:37:65414Yaohksll HermannCHEM TPDZV5526-60-66 10:37:0028[facility]annCHEM SXQZA0795-92-37 10:37:009.8[facility]annCHEM RJOXN4476-83-61 10:37:0011.8[facility] HermannCHEM UAEET6527-12-54 10:37:0059[facility]annCHEM MBXNK4667-94-97 10:37:002.9[facility] LtdfmoaKRKHPFNDVY5659-43-23 10:37:006.8 [facility] GaypkxyXYZKAHILMU0112-58-27 10:37:004.47[facility]annHEMATOLOGY 2020-08-29 10:37:0010.6[facility] IxkykqnNLSBPYSOWU3914-33-51 10:37:0034.0[facility] GkjmahyFOBQOZWSOH3396-51-19 10:37:0076.1[facility] TyqsqzgVBPAVBKRJH1888-20-74 10:37:00 Test Item Value Reference Range Interpretation Comments MCH (test code = MCH) 23.8 pg 27.0-31.0 [facility] YozsfnvGSRRLPNJED0555-87-63 10:37:0031.3[facility]annHEMATOLOGY 2020-08-29 10:37:0018.2[facility] OoziqduCMPILCEAOA0799-86-11 10:37:44143Tipvhwop OkwjsrcIDNKKPASTX9041-47-91 10:37:007.5[facility] OrmhrlaKZZJYXAUMH4808-57-93 10:37:00 Test Item Value Reference Range Interpretation Comments PT (test code = PT) 12.8 s 12.0-14.7 [facility] LwibkzqRGAVNHUSBZ7290-91-65 10:37:00 Test Item Value Reference Range Interpretation Comments INR (test code = INR) 0.97 1 0.85-1.17 [facility] JydflzxVHNTYTUFEA2953-37-88 10:37:00 Test Item Value Reference Range Interpretation Comments PTT (test code = PTT) 25.0 s 22.9-35.8 [facility] HospitalLoxchowLVMSZMGQXY9451-06-37 10:37:0070.5[facility]annHEMATOLOGY 2020-08-29 10:37:0018.8[facility] WwvzyjzLNUKLCBCPB4183-29-87 10:37:009.5[facility] MtsleibORBNXOQJME1765-94-02 10:37:000.9[facility] AqwqaixJRJDJKNXNQ1216-42-06 10:37:000.3[facility] NofjfbsVXXUBABCJG0270-58-06 10:37:004.8[facility] ICGVSOQWXC8720-51-66 10:37:001.3[facility] PwyhmkeQQTFRWGPIB7594-30-48 10:37:000.6 [facility] TitviyzHFBSHNVRWH2157-77-57 10:37:000.1[facility]annHEMATOLOGY 2020-08-29 10:37:001+ *ABN*(08/29/20 5:37 AM)[facility] SxlckzuGGAVNVVPHW9378-55-79 10:37:00Not Detected (08/29/20 5:37 AM)[facility]annBL[facility] BANK RESULTS 2020-08-29 10:37:00Negative (08/29/20 5:37 AM)[facility]annCHEM TIIVM2166-35-65 10:37:91864Hlkwtxcy HermannCHEM SCEPJ8612-45-58 10:37:0028[facility]annCHEM RQZLL9498-84-94 10:37:001.01[facility] HermannCHEM DWLDM5833-92-16 10:37:75540 [facility]annCHE[facility] WZTMR3959-45-62 10:37:003.8[facility] HermannCHEM PANEL 2020-08-29 10:37:90191Isugzmrw HermannCHEM PRPDV6034-98-91 10:37:0028[facility] HermannCHEM ZHDUY6266-97-97 10:37:009.8[facility] HermannCHEM AGESN4937-15-62 10:37:0011.8[facility] HermannCHEM AOUXG2446-27-32 10:37:0059[facility] HermannCHEM GHHMD8490-33-94 10:37:002.9[facility] WkuaxzqWLPAABVWPR2513-05-87 10:37:006.8 [facility] TmrtnlvLANNLZWKAY7624-08-79 10:37:004.47[facility]annHEMATOLOGY 2020-08-29 10:37:0010.6[facility] TfwrmxzQBKBTFVXDC2494-19-70 10:37:0034.0[facility] QrjjoymKJEURQFKJE7337-91-27 10:37:0076.1[facility] LkwfdnwVKHOUAKWQK8821-42-78 10:37:00 Test Item Value Reference Range Interpretation Comments MCH (test code = MCH) 23.8 pg 27.0-31.0 [facility] LmrekgfZTDYFWFFCO4781-11-62 10:37:0031.3[facility]annHEMATOLOGY 2020-08-29 10:37:0018.2[facility] RlogshrFSAWUHZKFN7555-81-07 10:37:55952Ljkoxeji QoeqqhrJJYHZPAAVG1087-64-26 10:37:007.5[facility] QyohiuiKMOGATAMRZ9766-07-00 10:37:00 Test Item Value Reference Range Interpretation Comments PT (test code = PT) 12.8 s 12.0-14.7 [facility] OkvpsccWINYDYLTPG9924-80-34 10:37:00 Test Item Value Reference Range Interpretation Comments INR (test code = INR) 0.97 1 0.85-1.17 [facility] WyfrqzwWQLNHSWJNC4114-10-98 10:37:00 Test Item Value Reference Range Interpretation Comments PTT (test code = PTT) 25.0 s 22.9-35.8 [facility] TgzggbxPCODOCQORF1638-19-54 10:37:0070.5[facility] HermannHEMATOLOGY 2020-08-29 10:37:0018.8[facility] AzeptiwNVJXTVFOEI0320-76-58 10:37:009.5[facility] QjseqpjCKFEJKINCN7280-11-96 10:37:000.9[facility] NihcvcvEQFSYIWOGN8497-46-34 10:37:000.3[facility] LhxowisJQBMVHWCBG6584-62-24 10:37:004.8[facility] DWLMNWJDXU4768-84-24 10:37:001.3[facility] SpnarpeWLETGMSVTU9151-75-50 10:37:000.6 [facility] OeyrzsoPXDRJSIXJO9076-57-42 10:37:000.1[facility]annHEMATOLOGY 2020-08-29 10:37:001+ *ABN*(08/29/20 5:37 AM)[facility] GwsvfrnQPTILKRMXL7111-50-53 10:37:00Not Detected (08/29/20 5:37 AM)[facility] RESULTS 2020-08-29 10:37:00Negative (08/29/20 5:37 AM)[facility]annCHEM WQYUE8755-25-74 10:37:60037Cjocfwhq HermannCHEM RFHIX0796-32-87 10:37:0028[facility] HermannCHEM ODZZY9310-31-67 10:37:001.01[facility]annCHEM EXOMH8409-88-10 10:37:21806 [facility]annCHEM RJDGI1308-69-09 10:37:003.8[facility]annCHEM PANEL 2020-08-29 10:37:69841Rwtkbpju HermannCHEM NBOTX0833-90-98 10:37:0028[facility] HermannCHEM TMGRS6004-96-34 10:37:009.8[facility] HermannCHEM PIKHE0832-65-73 10:37:0011.8[facility]annCHEM IGFZM3756-82-00 10:37:0059[facility]annCHEM EFQNT7206-02-74 10:37:002.9[facility] BwzjjzqWPUEAXLTWT2790-64-85 10:37:006.8 [facility] OtbpvsqPZJSKNYRVI4423-14-58 10:37:004.47[facility]annHEMATOLOGY 2020-08-29 10:37:0010.6[facility] CnjosycJKKTCSGLCC4387-47-49 10:37:0034.0[facility] NsqiujnFJTKIWIICG2630-69-67 10:37:0076.1[facility] KabzjjeIVHEXBHIOG2301-23-52 10:37:00 Test Item Value Reference Range Interpretation Comments MCH (test code = MCH) 23.8 pg 27.0-31.0 [facility] ExsanboSQXCPQRZEQ1699-51-12 10:37:0031.3[facility]annHEMATOLOGY 2020-08-29 10:37:0018.2[facility] BmbsyotWOLBLUMIPD6134-41-42 10:37:38757Fpzrpzzw EvtolioQLOJQZLGRP8557-47-30 10:37:007.5[facility] SfmgjchZNACHPJBGU6997-12-39 10:37:00 Test Item Value Reference Range Interpretation Comments PT (test code = PT) 12.8 s 12.0-14.7 [facility] NikznznOSZAQMVXOJ2333-63-85 10:37:00 Test Item Value Reference Range Interpretation Comments INR (test code = INR) 0.97 1 0.85-1.17 [facility] FbfmdmpOXWBMHSQDU5579-61-52 10:37:00 Test Item Value Reference Range Interpretation Comments PTT (test code = PTT) 25.0 s 22.9-35.8 [facility] CrblykzWYDTLUZTIZ8438-73-69 10:37:0070.5[facility] HermannHEMATOLOGY 2020-08-29 10:37:0018.8[facility] AjsyqggPYFXNINSDR5856-52-52 10:37:009.5[facility] YnkmzorGDIXTIKDDK1468-34-97 10:37:000.9[facility] IzfopbcZPUTDSSKYM7856-33-59 10:37:000.3[facility] GyshwktMXEURTAVTN0142-58-53 10:37:004.8[facility] ORGOMMNWQK4213-08-62 10:37:001.3[facility] TijcxcoMGIAUXCNHF6983-99-51 10:37:000.6 [facility] LigkzkuLXFNNQNWDY6802-13-84 10:37:000.1[facility] HermannHEMATOLOGY 2020-08-29 10:37:001+ *ABN*(08/29/20 5:37 AM)[facility] CtyapekYYQSRNKJNF0425-75-47 10:37:00Not Detected (08/29/20 5:37 AM)[facility]annBLOOD BANK RESULTS 2020-08-29 10:37:00Negative (08/29/20 5:37 AM)[facility] HermannCHEM MVHHP0245-11-68 10:37:76436Zqidqrbc HermannCHEM PPMMU9115-91-04 10:37:0028[facility] HermannCHEM OEIKW6886-60-52 10:37:001.01[facility] HermannCHEM KTMHG1511-83-03 10:37:70890 [facility]annCHEM ZWIQM5019-27-99 10:37:003.8[facility] HermannCHEM PANEL 2020-08-29 10:37:14304Gacoonrd HermannCHEM PHCTG6046-63-43 10:37:0028[facility] HermannCHEM KTROH7286-35-05 10:37:009.8[facility] HermannCHEM VPOEU8603-61-21 10:37:0011.8[facility] HermannCHEM HVVHY6062-49-33 10:37:0059[facility] HermannCHEM HBUFS1063-14-02 10:37:002.9[facility] IoxumdsUKZLPPWDBE4019-94-50 10:37:006.8 [facility] DusgsyoXSXWAMSKJQ5410-55-25 10:37:004.47[facility]annHEMATOLOGY 2020-08-29 10:37:0010.6[facility] OiehddhZYSLFXPMVL0967-79-02 10:37:0034.0[facility] RnomelyDPQAZZQOZB5473-83-39 10:37:0076.1[facility] SnjonvuMOTXRPPAAS9200-49-72 10:37:00 Test Item Value Reference Range Interpretation Comments MCH (test code = MCH) 23.8 pg 27.0-31.0 [facility] UkiuzmwVCFDRXBGWS5368-63-03 10:37:0031.3[facility] HermannHEMATOLOGY 2020-08-29 10:37:0018.2[facility] ZemarcfWFUFUQCFIJ4182-32-91 10:37:71896Axgriqzj WdxppmkVGAKNINQFV0672-81-90 10:37:007.5[facility] ZolaromNNSHRMIUQK7186-70-94 10:37:00 Test Item Value Reference Range Interpretation Comments PT (test code = PT) 12.8 s 12.0-14.7 [facility] UuwvhfqUBNTVIMTNM2235-56-71 10:37:00 Test Item Value Reference Range Interpretation Comments INR (test code = INR) 0.97 1 0.85-1.17 [facility] IjcocyvGTBQRZFOCF3011-26-26 10:37:00 Test Item Value Reference Range Interpretation Comments PTT (test code = PTT) 25.0 s 22.9-35.8 [facility] MvbyopjBCOILRODYY7301-92-41 10:37:0070.5[facility] HermannHEMATOLOGY 2020-08-29 10:37:0018.8[facility] VxwmpbqMMUFLGCYZV3937-41-31 10:37:009.5[facility] KvfytwiPAWEVBQPEI9578-79-59 10:37:000.9[facility] WbvxtigPNIXPIGCGV0552-49-07 10:37:000.3[facility] UkijumcCCMZLZHKNT5342-13-71 10:37:004.8[facility] KNYIETNOJN3901-61-66 10:37:001.3[facility] CgquqabQOYUKVDWDG5643-89-42 10:37:000.6 [facility] SjvqcgbWAHBQBOUTZ2187-69-23 10:37:000.1[facility] HermannHEMATOLOGY 2020-08-29 10:37:001+ *ABN*(08/29/20 5:37 AM)[facility] SpnnjdcTHABWRIRVE8043-57-80 10:37:00Not Detected (08/29/20 5:37 AM)[facility] HermannBLOOD BANK RESULTS 2020-08-29 10:37:00Negative (08/29/20 5:37 AM)[facility] HermannCHEM NFVFT6786-77-26 10:37:27762Xgjzxeug HermannCHEM DEAOH1769-35-62 10:37:0028[facility] HermannCHEM GBHBS4431-86-55 10:37:001.01[facility] HermannCHEM MQOAX2472-84-54 10:37:13032 [facility]annCHEM PBEWQ6405-17-17 10:37:003.8[facility] HermannCHEM PANEL 2020-08-29 10:37:81946Nhczmuth HermannCHEM AYGAI0310-52-30 10:37:0028[facility] HermannCHEM EMJSU8599-19-14 10:37:009.8[facility] HermannCHEM NFYFO1255-23-57 10:37:0011.8[facility] HermannCHEM CMXXE8061-10-79 10:37:0059[facility] HermannCHEM WZREL9409-95-91 10:37:002.9[facility] GgmcwegZLEHMNHGNF8627-66-37 10:37:006.8 [facility] UnzgsvzKSMIBMPOHH7695-96-76 10:37:004.47[facility] HermannHEMATOLOGY 2020-08-29 10:37:0010.6[facility] VhrkwnoCFUCQNSKVK3568-04-76 10:37:0034.0[facility] UrrwtsqDZBMPKVFPE4161-01-84 10:37:0076.1[facility] OfoqlonRYILYAFFGG3989-13-51 10:37:00 Test Item Value Reference Range Interpretation Comments MCH (test code = MCH) 23.8 pg 27.0-31.0 [facility] CnjohxiIVTKNFZCRZ2326-01-21 10:37:0031.3[facility] HermannHEMATOLOGY 2020-08-29 10:37:0018.2[facility] LobplezASZIJMPOUA4929-78-40 10:37:63837Ztakmxox TitsrbhOJXBTRWFBU3994-26-80 10:37:007.5[facility] HxlugjiFGJCRKNBOG7229-51-74 10:37:00 Test Item Value Reference Range Interpretation Comments PT (test code = PT) 12.8 s 12.0-14.7 [facility] ZsaeibiNYPBIPCCDU4076-14-19 10:37:00 Test Item Value Reference Range Interpretation Comments INR (test code = INR) 0.97 1 0.85-1.17 [facility] HldjkwqDTRYIAUSJP2045-93-61 10:37:00 Test Item Value Reference Range Interpretation Comments PTT (test code = PTT) 25.0 s 22.9-35.8 [facility] WbnclfnLUGAGNOMNA8264-61-84 10:37:0070.5[facility] HermannHEMATOLOGY 2020-08-29 10:37:0018.8[facility] QugzwdhYJAXMYSNTO9046-55-29 10:37:009.5[facility] VhounhvSDEGSPUFNR4531-69-82 10:37:000.9[facility] SgvhxwfUTLNHWJUJN8564-05-16 10:37:000.3[facility] EcmqihtOLGBAKHNDI4551-09-89 10:37:004.8[facility] XUAMOUSQZA7292-87-79 10:37:001.3[facility] SimbwjoIDZHBKOGYE1860-66-05 10:37:000.6 [facility] BjuijedIVPBQDSKSC1847-40-42 10:37:000.1[facility] HermannHEMATOLOGY 2020-08-29 10:37:001+ *ABN*(08/29/20 5:37 AM)[facility] SidioagYALSSAZRSF4698-33-92 10:37:00Not Detected (08/29/20 5:37 AM)[facility] HermannBLOOD BANK RESULTS 2020-08-29 10:37:00Negative (08/29/20 5:37 AM)[facility] HermannCHEM BIZTM7520-79-48 10:37:99513Tisaxqbs HermannCHEM QZTPO5881-35-40 10:37:0028[facility] HermannCHEM RTFPN9922-18-45 10:37:001.01[facility] HermannCHEM JQMBS5370-14-72 10:37:40982 [facility]annCHEM DIFBQ0224-56-87 10:37:003.8[facility] HermannCHEM PANEL 2020-08-29 10:37:58545Pxjflepb HermannCHEM TEKEW0710-48-60 10:37:0028[facility] HermannCHEM PUVZI2917-35-41 10:37:009.8[facility] HermannCHEM LNPHK1182-49-41 10:37:0011.8[facility] HermannCHEM TVVTQ5231-60-99 10:37:0059[facility] HermannCHEM HFBBV8041-46-00 10:37:002.9[facility] UvibiimZKSJLXRBHF8577-36-81 10:37:006.8 [facility] PbtcfxqRDGXOVLRUM7905-10-00 10:37:004.47[facility] HermannHEMATOLOGY 2020-08-29 10:37:0010.6[facility] ZgcctxoMKHFUJEHSJ9819-82-72 10:37:0034.0[facility] KiciuzgFVWCBEVKXZ1909-53-75 10:37:0076.1[facility] DbvxpctICDFMNNSBR6330-83-05 10:37:00 Test Item Value Reference Range Interpretation Comments MCH (test code = MCH) 23.8 pg 27.0-31.0 [facility] SoevtfvNRIDXUMWBD5074-71-76 10:37:0031.3[facility] HermannHEMATOLOGY 2020-08-29 10:37:0018.2[facility] HymbunjCRHBHOFUSI5584-28-38 10:37:25240Adpydflu AbnydkvCSNECKSPPX5368-84-45 10:37:007.5[facility] ZurirjjUQCJDEQVOZ0373-70-44 10:37:00 Test Item Value Reference Range Interpretation Comments PT (test code = PT) 12.8 s 12.0-14.7 [facility] FfhanusIMKCRJKGRL4184-90-19 10:37:00 Test Item Value Reference Range Interpretation Comments INR (test code = INR) 0.97 1 0.85-1.17 [facility] DmgttlkCBLUXRGSEY8249-92-00 10:37:00 Test Item Value Reference Range Interpretation Comments PTT (test code = PTT) 25.0 s 22.9-35.8 [facility] BotgawcWPCPNNGHMZ7793-40-73 10:37:0070.5[facility] HermannHEMATOLOGY 2020-08-29 10:37:0018.8[facility] XdhjsstCVSYLUGUNY6662-45-82 10:37:009.5[facility] LadfpqcETXLCNDKSU2338-51-22 10:37:000.9[facility] AsybkovXVKSVWOSZA0279-32-10 10:37:000.3[facility] XppitlwKPLCFVQTCZ2927-61-08 10:37:004.8[facility] ZQNEDEBMVY2339-99-61 10:37:001.3[facility] GyutrppIAWQXJSLGS3209-31-98 10:37:000.6 [facility] LoqcrirRTFHPWVJDC5216-32-06 10:37:000.1[facility] HermannHEMATOLOGY 2020-08-29 10:37:001+ *ABN*(08/29/20 5:37 AM)[facility] YlahnnjUOGVCPNKAZ8076-66-62 10:37:00Not Detected (08/29/20 5:37 AM)[facility] HermannCHLAMYDIA, GC, TV,PCR, IN XBDAA5175-62-30 15:38:00 Test Item Value Reference Range Interpretation Comments FT (test code = CHTR) Not detected (qualifier Not Detected N value) FT (test code = Not detected (qualifier Not Detected N NGONO) value) FT (test code = TRVG) Not detected (qualifier Not Detected N value) [facility] WITH ZTFYSJCDYOY2906-15-08 10:57:00 Test Item Value Reference Range Interpretation Comments Color (test code = UCOLR) Dk. Yellow Clarity (test code = UCLAR) Hazy Glucose (test code = UGLUC) NEGATIVE NEGATIVE N Bilirubin (test code = UBILI) NEGATIVE NEGATIVE N Ketones (test code = UKET) NEGATIVE NEGATIVE N Specific [place] (test code = 1.025 1.005-1.030 A USPGR) [...] Seen N URCRYS) [facility]"
[2022-04-30 03:16] LABS: Urine Blood Negative (Negative); Urine Glucose Negative (Negative); Urine Protein Negative (Negative); Urine Specific Gravity >=1.030 (1.005-1.030); Urine pH 5.5 (5.0-7.0)
[2022-04-30 03:23] LABS: Absolute Lymphocytes (CBC) 1.2 K/uL (0.7-4.9); Hematocrit 33.3 % (36.0-45.0); Lymphocytes % 22.3 % (15.3-44.8); MCV 91.8 fL (80-100); MPV 7.1 fL (7.6-11.3); RBC Red Blood Cell Count 3.63 M/uL (3.86-4.86)
[2022-04-30 03:36] LABS: Magnesium 2.4 mg/dL (1.6-2.4); Potassium 3.1 mmol/L (3.5-5.1); Troponin High Sensitivity 12.4 pg/mL (<58.9)
[2022-04-30] MEDS ORDERED: NA CHLORIDE 0.9% 500 ML ONE (03:51)
--- NOTE | 2022-04-30 03:57 | ER ---
Nurse's Notes [facility] Name: Marjan Kolb Age: 67 yrs Sex: Female : 1955 Arrival Date: 04/30/2022 Time: 01:09 Bed 8 Private MD: Diagnosis: Essential (primary) hypertension;Other otitis externa, left ear;Other acute kidney failure;Acute kidney failure, unspecified-on chronic;Hypokalemia Presentation: 04/30 01:40 Chief complaint: Patient states: Patient C/O SOB with mid chest pain of 10,onset 1900 pf1 last night. Patient also C/O right ear pain,onset 3 days with bloody discharge and left hip pain,onset 2 weeks ago,S/P fall. [facility] stated gave patient 325mg ASA QC TECH. Patient stated did neb tx last night at 1500 and 1930. 01:40 Coronavirus screen: Vaccine status: Patient reports receiving the 2nd dose of the covid pf1 vaccine. Patient stated had 4 doses of ubigrate Client denies travel out of the [place] in the last 14 days. Ebola Screen: Patient negative for fever greater than or equal to 101.5 degrees Fahrenheit, and additional compatible Ebola Virus Disease symptoms. Initial Sepsis Screen: Does the patient meet any 2 criteria? No. Patient's initial sepsis screen is negative. Does the patient have a suspected source of infection? No. Patient's initial sepsis screen is negative. Risk Assessment: Do you want to hurt yourself or someone else? Patient reports no desire to harm self or others. Onset of symptoms was April 29, 2022. Care prior to arrival: Medication(s) given: ASA, 325 mg, x 1. 01:48 Acuity: BLAYNE 2 tw5 01:48 Method Of Arrival: EMS: [facility] tw5 Triage Assessment: 01:40 General: Appears in no apparent distress. comfortable, well groomed, well developed, pf1 Behavior is calm, cooperative, appropriate for age, quiet. 01:40 Pain: Complains of pain in Patient C/O left hip pain,onset 2 weeks, right ear pain x 3 pf1 days and mid chest pain,onset 1900 last night with SOB. EENT: Reports pain in right ear pain with bloody drainage. Neuro: No deficits noted. Cardiovascular: Reports chest pain, shortness of breath, since 1900 last night. Respiratory: Reports shortness of breath on exertion Airway is patent Respiratory effort is even, unlabored, Breath sounds are clear bilaterally. GI: No deficits noted. : No deficits noted. Derm: Skin is pink, warm \\T\\ dry. Patient has dark purple bruising to right arm,onset 2 weeks ago,S/P fall. Musculoskeletal: Reports pain in left hip. Historical: - Immunization history:: Adult Immunizations up to date, patient stated pfizer x 4 doses. - Social history:: Patient/guardian denies using tobacco products, Smoking status: Patient reports use of chewing tobacco. - Hospitalizations: : The patient was recently seen at [facility], and discharged 5 day(s) ago. Screenin:40 Abuse screen: Denies threats or abuse. pf1 01:40 Nutritional screening: No deficits noted. Tuberculosis screening: No symptoms or risk pf1 factors identified. Fall Risk Fall in past 12 months (25 points). IV access (20 points). Assessment: 03:25 General: see triage assessment. pf1 15:28 Reassessment: Tried to call report to floor - Taylor answered phone, states " I do not ld1 know how to get ahold of the nurse vernon, you will have to call back." Then hung up the phone. Will try to call report again in 5 minutes. 15:29 Reassessment: Patient appears in no apparent distress at this time. Patient and/or ld1 family updated on plan of care and expected duration. Pain level reassessed. Patient is alert, oriented x 3, equal unlabored respirations, skin warm/dry/pink. Vital Signs: 01:40 BP 147 / 91; Pulse 64; Resp 18; Temp 97.1; Pulse Ox 97% ; Weight 78.93 kg; Height 5 ft. pf1 4 in. (162.56 cm); Pain 10/10; 02:00 BP 162 / 77; Pulse 69; Resp 20; Temp 97.8; Pulse Ox 100% ; Pain 10/10; pf1 03:27 BP 179 / 81; Pulse 62; Resp 20; Temp 97.9; Pulse Ox 98% ; Pain 10/10; pf1 01:40 Body Mass Index 29.87 (78.93 kg, 162.56 cm) pf1 ED Course: 01:09 Patient arrived in ED. jj6 01:40 Patient has correct armband on for positive identification. Fall risk band placed. pf1 Placed in gown. Bed in low position. Call light in reach. 01:43 Kay flowers, ASHLEY is Primary Nurse. pf1 01:45 Daysi Mendez PA-C is PHCP. sb4 01:45 Justus Kolb MD is Attending Physician. sb4 01:48 Triage completed. tw5 02:00 No provider procedures requiring assistance completed. pf1 02:16 XRAY Chest (1 view) In Process Unspecified. EDMS 02:20 Missed attempt(s): 20 gauge in right forearm. pf1 02:30 Missed attempt(s): 22 gauge in left antecubital area. pf1 03:14 Missed attempt(s): 24 gauge in left breast. Bleeding controlled, band aid applied, tw5 catheter tip intact. 03:14 Initial lab(s) drawn, by me, sent to lab. Inserted saline lock: 24 gauge in right hand, tw5 using aseptic technique. Blood collected. 03:54 Goldy Baker MD is Hospitalizing Provider. thomas 04:09 Lei Munoz MD is Hospitalizing Provider. la1 04:55 SARS RAPID Sent. pf1 15:37 Patient admitted, IV remains in place. ld1 15:37 Arm band placed on right wrist. ld1 Administered Medications: 03:52 Drug: NS 0.9% 500 ml {Note: right thumb.} Route: IV; Rate: bolus; Site: Other; pf1 04:50 Follow up: Response: No adverse reaction; IV Status: Completed infusion; IV Intake: pf1 500ml 04:50 Follow up: IV Status: Completed infusion; IV Intake: 500ml pf1 04:55 Not Given (Patient Refused): HYDROcodone-acetaminophen 5 mg-325 mg 1 tabs PO once pf1 05:20 Drug: morphine 4 mg {Note: right thumb.} Route: IVP; Infused Over: 4 mins; Site: Other; pf1 06:30 Follow up: Response: No adverse reaction; Pain is decreased pf1 05:20 Drug: Zofran (Ondansetron) 4 mg {Note: right thumb.} Route: IVP; Site: Other; pf1 06:30 Follow up: Response: No adverse reaction; Nausea is decreased pf1 Medication: 02:00 VIS not applicable for this client. pf1 Intake: 04:50 IV: 500ml; Total: 500ml. pf1 04:50 IV: 500ml; Total: 1000ml. pf1 Outcome: 03:56 Decision to Hospitalize by Provider. thomas 15:37 Admitted to Med/surg accompanied by tech, via wheelchair, room 206, with chart, Report ld1 called to ASHLEY Dunn 15:37 Condition: stable 15:37 Instructed on the need for admit. 15:52 Patient left the ED. ph Signatures: Dispatcher [employer] EDCT Justus Kolb MD MD cha Attema, Lee, WATERPROOF MATERIAL FOLDER-C WATERPROOF MATERIAL FOLDER-Cla1 Solange Bennett RN RN Wanda Rust RN RN ld1 Dorita Dominguez 5 Karen Montiel Sophia PA-C PA-C sb4 Kay flowers RN RN pf1 Corrections: (The following items were deleted from the chart) 01:56 PMHx: COPD; pf1 pf1 01:56 PMHx: HIV; pf1 pf1 01:56 PMHx: Hypertension; pf1 pf1 01:56 PMHx: Bipolar disorder; pf1 pf1 01:56 PMHx: Anxiety; pf1 pf1 01:56 PMHx: Panic Attacks; pf1 pf1 01:56 PMHx: Migraines; pf1 pf1 01:56 PMHx: Chronic pain; pf1 pf1 01:56 PMHx: Hepatitis; pf1 pf1 01:56 PMHx: Atrial Fib; pf1 pf1 01:56 PMHx: esophageal varices; pf1 pf1 01:56 PSHx: hernia repair; pf1 pf1 01:56 PSHx: Bilateral shoulder repair; pf1 pf1 01:56 PSHx: Appendectomy; pf1 pf1 01:56 PSHx: Cholecystectomy; pf1 pf1 01:56 PSHx: R wrist SX; pf1 pf1
--- NOTE | 2022-04-30 03:57 | EDPHYS ---
Physician Documentation [facility] Name: Marjan Kolb Age: 67 yrs Sex: Female : 1955 Arrival Date: 04/30/2022 Time: 01:09 Bed 8 Private MD: ED Physician Justus Kolb HPI: 04/30 01:54 This 67 yrs old Female presents to ER via EMS with complaints of shortness of breath, sb4 chest pain, hip pain. 01:54 Patient comes in with multiple complaints- chest pain, shortness of breath, left hip sb4 pain, bloody drainage from right here. She states the chest pain and shortness of breath started last night and the ear pain right after trying to clean it out. Hip pain is residual from her fall 2 weeks ago. . Historical: - Immunization history:: Adult Immunizations up to date, patient stated pfizer x 4 doses. - Social history:: Patient/guardian denies using tobacco products, Smoking status: Patient reports use of chewing tobacco. - Hospitalizations: : The patient was recently seen at [facility], and discharged 5 day(s) ago. ROS: 01:54 Constitutional: Negative for fever, chills, and weight loss, Eyes: Negative for injury, sb4 pain, redness, and discharge, Abdomen/GI: Negative for abdominal pain, nausea, vomiting, diarrhea, and constipation. 01:54 ENT: Positive for drainage from ear(s), ear pain. 01:54 Cardiovascular: Positive for chest pain. 01:54 Respiratory: Positive for shortness of breath. 01:54 MS/extremity: Positive for pain. 01:54 Skin: Positive for abrasion(s). Exam: 01:54 Constitutional: This is a well developed, well nourished patient who is awake, alert, sb4 and in no acute distress. Head/Face: Normocephalic, atraumatic. ENT: Mucous membranes moist. Cardiovascular: Regular rate and rhythm with a normal S1 and S2. Respiratory: Lungs have equal breath sounds bilaterally, clear to auscultation and percussion. No rales, rhonchi or wheezes noted. No increased work of breathing, no retractions or nasal flaring. Abdomen/GI: Soft, non-tender, no distension. 01:54 Musculoskeletal/extremity: ROM: limited active range of motion due to pain, in the left leg. 01:54 Skin: healing abrasions noted to right forearm. 02:02 ECG was reviewed by the Attending Physician. sb4 Vital Signs: 01:40 BP 147 / 91; Pulse 64; Resp 18; Temp 97.1; Pulse Ox 97% ; Weight 78.93 kg; Height 5 ft. pf1 4 in. (162.56 cm); Pain 10/10; 02:00 BP 162 / 77; Pulse 69; Resp 20; Temp 97.8; Pulse Ox 100% ; Pain 10/10; pf1 03:27 BP 179 / 81; Pulse 62; Resp 20; Temp 97.9; Pulse Ox 98% ; Pain 10/10; pf1 01:40 Body Mass Index 29.87 (78.93 kg, 162.56 cm) pf1 MDM: 01:45 Patient medically screened. sb4 02:59 Data reviewed: vital signs, nurses notes, lab test result(s), EKG, radiologic studies, thomas plain films. Data interpreted: attendant child activity: rate is 64 beats/min, rhythm is regular, Pulse oximetry: on room air is 97 %. Test interpretation: by ED physician or midlevel provider: ECG, plain radiologic studies. Counseling: I had a detailed discussion with the patient and/or guardian regarding: the historical points, exam findings, and any diagnostic results supporting the discharge/admit diagnosis, lab results, radiology results, the need for outpatient follow up, for definitive care, a boarding machine operator, a family practitioner. 02:59 Data reviewed: vital signs, nurses notes. Transition of care: After a detail discussion sb4 of the patient's case, care is transferred to Justus Kolb MD. 12 01:46 Order name: Basic Metabolic Panel; Complete Time: 03:42 sb4 04/30 01:46 Order name: CBC with Diff; Complete Time: 03:42 sb4 04/30 01:46 Order name: Magnesium; Complete Time: 03:42 sb4 04/30 01:46 Order name: NT PRO-BNP; Complete Time: 03:42 sb4 04/30 01:46 Order name: Troponin HS; Complete Time: 03:42 sb4 04/30 03:16 Order name: Urine Dipstick-Ancillary; Complete Time: 03:42 EDMS 04/30 01:46 Order name: XRAY Chest (1 view) sb4 04/30 03:45 Order name: CT Stone Protocol [facility] 04/30 04:10 Order name: SARS RAPID; Complete Time: 15:17 la1 04/30 07:24 Order name: Creatine Phosphokinase; Complete Time: 15:17 EDMS 04/30 07:24 Order name: Troponin High Sensitivity; Complete Time: 15:17 EDMS 04/30 09:35 Order name: US; Complete Time: 15:17 EDMS 04/30 12:36 Order name: Basic Metabolic Panel; Complete Time: 15:17 EDMS 04/30 12:36 Order name: Troponin High Sensitivity; Complete Time: 15:17 EDMS 04/30 01:46 Order name: EKG; Complete Time: 01:46 sb4 04/30 01:46 Order name: Cardiac monitoring; Complete Time: 02:10 sb4 04/30 01:46 Order name: EKG - Nurse/Tech; Complete Time: 02:03 sb4 04/30 01:46 Order name: IV Saline Lock; Complete Time: 03:24 sb4 04/30 01:46 Order name: Labs collected and sent; Complete Time: 03:25 sb4 04/30 01:46 Order name: O2 Per Protocol; Complete Time: 02:10 sb4 04/30 01:46 Order name: O2 Sat Monitoring; Complete Time: 02:10 sb4 04/30 14:55 Order name: CT EDMS EC:02 Rate is 62 beats/min. Rhythm is regular, Normal Sinus Rhythm. QRS [place] is Normal. [place] sb4 interval is normal. QRS interval is normal at 92 msec. QT interval is normal at [address] changes noted. Administered Medications: 03:52 Drug: NS 0.9% 500 ml {Note: right thumb.} Route: IV; Rate: bolus; Site: Other; pf1 04:50 Follow up: Response: No adverse reaction; IV Status: Completed infusion; IV Intake: pf1 500ml 04:50 Follow up: IV Status: Completed infusion; IV Intake: 500ml pf1 04:55 Not Given (Patient Refused): HYDROcodone-acetaminophen 5 mg-325 mg 1 tabs PO once pf1 05:20 Drug: morphine 4 mg {Note: right thumb.} Route: IVP; Infused Over: 4 mins; Site: Other; pf1 06:30 Follow up: Response: No adverse reaction; Pain is decreased pf1 05:20 Drug: Zofran (Ondansetron) 4 mg {Note: right thumb.} Route: IVP; Site: Other; pf1 06:30 Follow up: Response: No adverse reaction; Nausea is decreased pf1 Disposition: 02:59 Co-signature as Attending Physician, Justus Kolb MD I agree with the assessment and thomas plan of care. Disposition Summary: 04/30/22 03:56 Hospitalization Ordered Hospitalization Status: Observation thomas Condition: Fair thomas Problem: new thomas Symptoms: have improved thomas Bed/Room Type: Standard thomas Provider: Lei Munoz(04/30/22 04:09) la1 Location: Telemetry/MedSurg (observation)(04/30/22 12:20) Room Assignment: [facility][note 3](04/30/22 15:00) ja1 Diagnosis - Essential (primary) hypertension thomas - Other otitis externa, left ear thomas - Other acute kidney failure thomas - Acute kidney failure, unspecified - on chronic thomas - Hypokalemia thomas Discharge Instructions: - Discharge Summary Sheet thomas - Nonspecific Chest Pain, Adult thomas - Otitis Externa thomas - Hypertension, Adult thomas - Otitis Externa, Thlh-zb-Pavm thomas - Nonspecific Chest Pain, Adult, Elkd-hr-Ybpp thomas - Ear Drops, Adult, Qhjr-vo-Iftz thomas - Aspirin and Your Heart thomas Forms: - Medication Reconciliation Form thomas - SBAR form thomas Prescriptions: - Cortisporin-TC 3.3-3-10-0.5 mg/mL Otic Suspension - instill 4 drops by OTIC route every 6 hours; 1 bottle; Refills: 0, Product thomas Selection Permitted Signatures: Dispatcher [employer] Justus Long MD MD cha Attema, Lee, BOWL ATTENDANT-C BOWL ATTENDANT-Cla1 Solange Bennett RN Justus Sanchez ph, PA PA cp Garcia, Cindy, RN RN cg Aguilar, Jose, RN RN Jo Ann Riddle Sophia, PA-C PAAny rg4 Kay flowers RN RN pf1 Corrections: (The following items were deleted from the chart) 01:59 01:56 PMHx: COPD; pf1 pf1 59 01:56 PMHx: HIV; pf1 pf1 01:59 01:56 PMHx: Hypertension; pf1 pf1 :59 01:56 PMHx: Bipolar disorder; pf1 pf1 :59 01:56 PMHx: Anxiety; pf1 pf1 :59 01:56 PMHx: Panic Attacks; pf1 pf1 :59 01:56 PMHx: Migraines; pf1 pf1 :59 01:56 PMHx: Chronic pain; pf1 pf1 :59 01:56 PMHx: Hepatitis; pf1 pf1 :59 01:56 PMHx: Atrial Fib; pf1 pf1 :59 01:56 PMHx: esophageal varices; pf1 pf1 : 01:56 PSHx: hernia repair; pf1 pf1 :59 01:56 PSHx: Bilateral shoulder repair; pf1 pf1 :59 01:56 PSHx: Appendectomy; pf1 pf1 :59 01:56 PSHx: Cholecystectomy; pf1 pf1 :59 01:56 PSHx: R wrist SX; pf1 pf1 04:09 03:56 Goldy Baker thomas la1 04:47 03:56 Telemetry/MedSurg (observation) thomas cg 04:47 03:56 thomas cg 12:20 04:47 [facility] ER HOLD cg eb 12:20 04:47 ERHOLD- cg eb 12:42 12:20 411 eb ja1 15:00 12:42 ja1 ja1
--- NOTE | 2022-04-30 04:36 | P.HP ---
Certification for Inpatient Patient admitted to: Observation With expected LOS: <2 Midnights Patient will require the following post-hospital care: None Practitioner: I am a practitioner with admitting privileges, knowledge of patient current condition, hospital course, and medical plan of care. Services: Services provided to patient in accordance with Admission requirements found in Title 42 Section 412.3 of the Code of Federal Regulations <Jimi Tomlinson - Last Filed: 04/30/22 04:32> Patient History Date of Service: 04/30/22 Reason for admission: ROHAN, chest pain History of Present Illness: 67-year-old female with history of chronic diastolic congestive heart failure, hypertension, paroxysmal atrial fibrillation, COPD on home O2, HIV presents to the emergency department for right ear pain/bloody drainage for the last 3 days as well as intermittent chest pain for last 2 days. She is evaluated here in the emergency department found to have acute kidney injury, she was recently admitted to the hospital on the fourth discharged on the same day at discharge her creatinine was 0.94, it is increased to 2.0 today. She was diuresed during her admission and also prescribed losartan at discharge may be combination of diuresis and ARB contributing to ROHAN. Patient denies use of NSAIDs at home. ED provider wishes to admit under observation for ROHAN. - Past Medical/Surgical History Diabetic: No -: HIV- viral load currently undectable -: CAD -: Bipolar disorder -: Hypertension -: COPD on home O2 @ 2L -: Tobacco abuse -: former Alcohol abuse -: Anemia of chronic disease -: Hyperlipidemia -: GERD with hiatal hernia -: Atrial fibrillation-paroxysmal -: Chronic diastolic CHF -: Appendectomy -: Cholecystectomy -: left and right shoulder rotator cuff repair -: Right foot repair -: Right shoulder replacement -: right wrist -: hiatal hernia repair february 2021 -: right wrist Psychosocial/ Personal History: She lives at home. She is newly . - Family History Father -: Heart disease, Hypertension, Lung disease, GI disease, Stroke, Cancer, Liver disease, Kidney disease Notes: Colon cancer Mother -: Hypertension, Lung disease, GI disease, Blood disorders, Other (see notes) Notes: Epilepsy, chronic pain, leukemia - Social History Alcohol use: No CD- Drugs: No Caffeine use: Yes Place of Residence: Home <Jimi Tomlinson - Last Filed: 04/30/22 04:32> Date of Service: 04/30/22 <Lei Munoz - Last Filed: 04/30/22 14:52> Allergies fentanyl Allergy (Severe, Verified 03/15/22 14:38) Hives adhesive tape Allergy (Verified 03/16/22 10:43) Rash butorphanol tartrate [From Stadol] Allergy (Verified 03/15/22 14:38) confusion metoclopramide HCl [From Reglan] Allergy (Verified 03/15/22 14:38) Shortness of breath sulfamethoxazole [From Bactrim] Allergy (Verified 03/15/22 14:38) Hives/Rash trimethoprim [From Bactrim] Allergy (Verified 03/15/22 14:38) Hives/Rash Bactrim DS Allergy (Intermediate, Uncoded 03/15/22 14:38) Nausea/Vomiting Home Medications: RX: Raltegravir Potassium [Isentress] 1 tab PO BID 02/28/12 RX: Sertraline [Zoloft*] 2 tab PO BID 09/15/12 RX: Metoprolol Tartrate 100 mg PO BID #60 tablet 02/03/20 RX: Emtricitabine/Tenofov Alafenam [Descovy 200-25 mg Tablet] 1 tab PO DAILY 03/05/21 RX: Amlodipine Besylate 1 tab PO DAILY 03/30/21 RX: Dexlansoprazole [Dexilant] 60 mg PO DAILY 03/30/21 RX: Bupropion HCl [Wellbutrin Xl] 1 tab PO DAILY 10/16/21 RX: Clopidogrel Bisulfate [Plavix*] 1 tab PO DAILY 10/16/21 RX: Trazodone [Desyrel*] 1 tab PO BEDTIME 10/16/21 RX: Spironolactone [Aldactone*] 25 mg PO DAILY #30 tab 02/04/22 Hydromorphone [Dilaudid] 2 mg PO DAILY 03/15/22 RX: Triamterene 50 mg PO DAILY 03/15/22 RX: Losartan Potassium [Cozaar*] 50 mg PO BID #60 tablet 04/25/22 Review of Systems 10-point ROS is otherwise unremarkable ENT: Ear Pain, Ear Discharge Cardiovascular: Chest Pain <Jimi Tomlinson Gregorio - Last Filed: 04/30/22 04:32> Physical Examination - Physical Exam General: Alert, In no apparent distress, Oriented x3 HEENT: Atraumatic, PERRLA, Mucous membr. moist/pink, EOMI, Sclerae nonicteric Neck: Supple, 2+ carotid pulse no bruit, No LAD, Without JVD or thyroid abnormality Respiratory: Clear to auscultation bilaterally, Normal air movement Cardiovascular: Regular rate/rhythm, Normal S1 S2 Capillary refill: <2 Seconds Gastrointestinal: Normal bowel sounds, No tenderness Musculoskeletal: No tenderness Integumentary: No rashes Neurological: Normal gait, Normal speech, Normal strength at 5/5 x4 extr, Normal tone, Normal affect Lymphatics: No axilla or inguinal lymphadenopathy - Studies Laboratory Data (last 24 hrs) 04/30/22 03:01: WBC 5.30, Hgb 11.4 L, Hct 33.3 L, Plt Count 163 04/30/22 03:01: Sodium 139, Potassium 3.1 L, BUN 39 H, Creatinine 2.00 H, Glucose 107 H, Magnesium 2.4 <Jimi Tomlinson - Last Filed: 04/30/22 04:32> - Studies Laboratory Data (last 24 hrs) 04/30/22 12:05: Sodium 138, Potassium 3.3 L, BUN 35 H, Creatinine 1.31 H, Glucose 101 04/30/22 03:01: WBC 5.30, Hgb 11.4 L, Hct 33.3 L, Plt Count 163 04/30/22 03:01: Sodium 139, Potassium 3.1 L, BUN 39 H, Creatinine 2.00 H, Glucose 107 H, Magnesium 2.4 <Lei Munoz - Last Filed: 04/30/22 14:52> Assessment and Plan - Plan Assessment: ROHAN Chest pain rule out ACS Chronic diastolic congestive heart failure Paroxysmal atrial fibrillation Hypertension HIV COPD on home O2 Plan: ROHAN: Continue gentle IV fluids, obtain renal ultrasound and nephrology consult. Repeat BMP later today. Chest pain rule out ACS: Trend troponins, patient had a heart catheterization earlier this year with normal coronaries. Chronic diastolic congestive heart failure: Hold diuretics, GREG/ARB's. No signs of overload at this time. Paroxysmal atrial fibrillation: Patient takes clopidogrel at home does not take any anticoagulation, patient with frequent falls. Monitor on telemetry. Continue metoprolol. Hypertension: Metoprolol and amlodipine continued, hold losartan. HIV: Continue home medications COPD on home O2: No active exacerbations, give nebs as needed. DVT PPX: Heparin Code status: Full Discharge Plan: Home Plan to discharge in: 24 Hours - Advance Directives Does patient have a Living Will: No Does patient have a Durable POA for Healthcare: No - Code Status/Comfort Care Code Status Assessed: Yes (Full code) Critical Care: No Time Spent Managing Pts Care (In Minutes): 50 <Jimi Tomlinson - Last Filed: 04/30/22 04:32> Physician Review: Patient Assessed, Agree with Above Assessment and Plan <Lei Munoz - Last Filed: 04/30/22 14:52>
[2022-04-30] MEDS ORDERED: HYDROCODONE/APAP 5/325 MG TAB ONE (04:37)
[2022-04-30] MEDS ORDERED: ONDANSETRON 4 MG/2 ML VIAL ONE (04:55)
[2022-04-30] MEDS ORDERED: MORPHINE 4 MG/ML SYR ONE (04:55)
[2022-04-30 05:12] LABS: SARS-CoV-2 Antigen Rapid Res Negative (Negative)
[2022-04-30 05:32] VITALS: BMI 29.8
[2022-04-30] MEDS ORDERED: Ringers Lactate 1,000 ML IV SCH (05:56)
[2022-04-30] MEDS ORDERED: HYDROCODONE/APAP 7.5/325 MG TAB PO PRN (05:56)
[2022-04-30] MEDS ORDERED: ONDANSETRON 4 MG/2 ML VIAL IV PRN (05:56)
[2022-04-30 07:24] LABS: Troponin High Sensitivity 13.7 pg/mL (<58.9)
[2022-04-30] MEDS: BUPROPION HCL XL 150 MG TAB PO SCH (09:00)
[2022-04-30] MEDS: CLOPIDOGREL 75 MG TABLET PO SCH (09:00)
[2022-04-30] MEDS: METOPROLOL TAR 50 MG TAB PO SCH ×2 (09:00→21:45)
[2022-04-30] MEDS: NEOMY/POLY/HC 1% OTIC DROPS RIGHT EAR SCH ×3 (09:00→21:00)
[2022-04-30] MEDS: AMLODIPINE 10 MG TAB PO SCH (09:00)
[2022-04-30] MEDS: SERTRALINE HCL 100 MG TAB PO SCH ×2 (09:00→21:46)
--- NOTE | 2022-04-30 09:35 | RAD REPORT ---
EXAM DESCRIPTION: US - Renal Ultrasound-Complete - 04/30/2022 8:18 am CLINICAL HISTORY: marilynn Flank pain COMPARISON: Abdomen Exam Limited dated 02/03/2022 FINDINGS: Both kidneys are normal in size, shape and echotexture. The right kidney measures 9.6 x 4.6 x 4.5 cm. No hydronephrosis, focal mass or perinephric fluid. The left kidney measures 10.4 x 4.9 x 4.4 cm.. No hydronephrosis, focal mass or perinephric fluid. 5. 1 cm cyst is present, benign in appearance. The urinary bladder is incompletely distended without gross abnormality seen. IMPRESSION: Bilateral benign renal cysts, otherwise negative study.
[2022-04-30] MEDS ORDERED: HYDROCODONE/APAP 7.5/325 MG TAB ONE (09:59)
[2022-04-30] MEDS ORDERED: METOPROLOL TAR 50 MG TAB ONE (09:59)
[2022-04-30] MEDS ORDERED: NEOMY/POLY/HC 1% OTIC DROPS ONE (09:59)
[2022-04-30] MEDS ORDERED: Ringers Lactate 1,000 ML IV ONE (10:00)
[2022-04-30] MEDS ORDERED: AMLODIPINE 10 MG TAB ONE (10:00)
[2022-04-30] MEDS ORDERED: CLOPIDOGREL 75 MG TABLET ONE (10:00)
--- NOTE | 2022-04-30 10:14 | RAD REPORT ---
EXAM DESCRIPTION: Chest Single View 04/30/2022 2:34 AM SUPERVISOR WHIPPED TOPPING CLINICAL HISTORY: 67 years, Female, CHEST PAIN COMPARISON: 04/25/2022 FINDINGS: Single view of the chest was obtained portable. Prior films were compared. External EKG le ads within the [id number] limits diagnosis. The lung volume is slightly decreased. Mild elevation right hemidiaphragm with minimal compressive atelectatic changes. The heart is prominent. The thoraci c aorta demonstrate to be unremarkable. Costophrenic angles are sharp. No areas of consolidation or masses are seen. Bilateral reversed shoulder arthroplasty The rest of the soft tissue and bony str uctures demonstrate to be unremarkable. IMPRESSION: Mild cardiomegaly. Minimal right basilar compressive atelectatic changes. Electronically signed by: Medhat Herrera MD 04/30/2022 2:35 AM SUPERVISOR WHIPPED TOPPING Due to temporary technical issues with the PACS/Fluency reporting system, reports are being signed by the in house radiologists without review as a courtesy to insure prompt reporting. The interpreting radiologist is fully responsible for the content of the report.
[2022-04-30] MEDS ORDERED: POTASSIUM 25 MEQ EFFERV TAB PO ONE (11:28)
[2022-04-30] MEDS: Ringers Lactate 1,000 ML IV SCH (11:28)
--- NOTE | 2022-04-30 11:36 | P.CNS ---
Date of Consult: 04/30/22 Reason for Consult: ROHAN Requesting Physician: Jimi Tomlinson Chief Complaint: ROHAN, chest pain History of Present Illness: 67-year-old female with history of chronic malignant hypertension, reports of paroxysmal atrial fibrillation, COPD on home O2, HIV with no reported complications on retroviral regimen, a hx of diastolic CHF presents to the emergency department for pain behind the Rt ear, radiation to the neck and MARTIN all of which she reports is persistent for sometime. Pt appears to have had numerous ER visits over the past many mo and prior ROHAN episodes, she does not see a renal specialist. Pt acknowledges taking Ibuprofen at home for the above symptoms, q4h, pt reports has not been taking NSAIDs at that frequency for too long. Allergies fentanyl Allergy (Severe, Verified 03/15/22 14:38) Hives adhesive tape Allergy (Verified 03/16/22 10:43) Rash butorphanol tartrate [From Stadol] Allergy (Verified 03/15/22 14:38) confusion metoclopramide HCl [From Reglan] Allergy (Verified 03/15/22 14:38) Shortness of breath sulfamethoxazole [From Bactrim] Allergy (Verified 03/15/22 14:38) Hives/Rash trimethoprim [From Bactrim] Allergy (Verified 03/15/22 14:38) Hives/Rash Bactrim DS Allergy (Intermediate, Uncoded 03/15/22 14:38) Nausea/Vomiting Home Medications: Raltegravir Potassium [Isentress] 1 tab PO BID 02/28/12 Sertraline [Zoloft*] 2 tab PO BID 09/15/12 Metoprolol Tartrate 100 mg PO BID #60 tablet 02/03/20 Emtricitabine/Tenofov Alafenam [Descovy 200-25 mg Tablet] 1 tab PO DAILY 03/05/21 Amlodipine Besylate 1 tab PO DAILY 03/30/21 Dexlansoprazole [Dexilant] 60 mg PO DAILY 03/30/21 Bupropion HCl [Wellbutrin Xl] 1 tab PO DAILY 10/16/21 Clopidogrel Bisulfate [Plavix*] 1 tab PO DAILY 10/16/21 Trazodone [Desyrel*] 1 tab PO BEDTIME 10/16/21 Spironolactone [Aldactone*] 25 mg PO DAILY #30 tab 02/04/22 Hydromorphone [Dilaudid] 2 mg PO DAILY 03/15/22 Triamterene 50 mg PO DAILY 03/15/22 Losartan Potassium [Cozaar*] 50 mg PO BID #60 tablet 04/25/22 - Past Medical/Surgical History Diabetic: No -: HIV- viral load currently undectable -: CAD -: Bipolar disorder -: Hypertension -: COPD on home O2 @ 2L -: Tobacco abuse -: former Alcohol abuse -: Anemia of chronic disease -: Hyperlipidemia -: GERD with hiatal hernia -: Atrial fibrillation-paroxysmal -: Chronic diastolic CHF -: Appendectomy -: Cholecystectomy -: left and right shoulder rotator cuff repair -: Right foot repair -: Right shoulder replacement -: right wrist -: hiatal hernia repair february 2021 -: right wrist Psychosocial/ Personal History: She lives at home. She is newly . - Family History Father Medical History: Heart disease, Hypertension, Lung disease, GI disease, Stroke, Cancer, Liver disease, Kidney disease Notes: Colon cancer Mother Medical History: Hypertension, Lung disease, GI disease, Blood disorders, Other (see notes) Notes: Epilepsy, chronic pain, leukemia - Social History Smoking Status: Unknown if ever smoked Alcohol use: No CD- Drugs: No Caffeine use: No Place of Residence: Home Review of Systems General: Malaise Eyes: Unremarkable ENT: Ear Pain, As per HPI Respiratory: As per HPI Cardiovascular: As per HPI Gastrointestinal: As per HPI Genitourinary: Unremarkable Musculoskeletal: Unremarkable Integumentary: Unremarkable Neurological: Weakness, Incoordination, Other (MARTIN, ), As per HPI (MARTIN, falls) Lymphatics: Other (Hx of HIV) Physical Examination Temp Pulse Resp BP Pulse Ox 66 206/98 H 04/30/22 09:00 04/30/22 09:00 General: Alert, In no apparent distress, Oriented x3 HEENT: Atraumatic, Normocephalic, EOMI Neck: Supple Respiratory: Normal air movement Cardiovascular: No edema, Regular rate/rhythm Gastrointestinal: Soft and benign, Non-distended, No tenderness Musculoskeletal: No swelling, No contractures Integumentary: No rashes Neurological: Normal speech, Normal tone, Normal affect Laboratory Data (last 24 hrs) 04/30/22 03:01: WBC 5.30, Hgb 11.4 L, Hct 33.3 L, Plt Count 163 04/30/22 03:01: Sodium 139, Potassium 3.1 L, BUN 39 H, Creatinine 2.00 H, Glucose 107 H, Magnesium 2.4 Conclusions/Impression: 1. Abnormal results of kidney function studies 2. Stage II ROHAN, prior ROHAN episodes 3. Possible underlying CKD NOS 4. Hypertensive urgency 5. Headache unspecified 6. Hypokalemia 7. Cyst of kidney, acquired -Pt has had prior ROHAN episodes and fluctuation in Cr levels over the past year. Pt on her home meds is on a number of agents including ARB, thiazide diuretic and aldosterone antagonist which can have physiologic effect on/through her kidneys and volume status and their effects would be compounded by concurrent NSAIDs use. -UA shows elevated urine SG, will obtain additional studies including microscopic UA, fractional excretion of urea and spot urine -Renal imaging reviewed -Ok to cont cautious hydration briefly, however will lower rate as pt quite hypertensive -Agree with CCB therapy, will hold MITCHELL inhibitors temp, will place on nitro gtt. -Will check renal duplex and/or review prior vascular studies if pt has had any -Pt advised to stop all NSAIDs -Replete potassium, monitor lytes Oscar Pena MD, BARB
[2022-04-30] MEDS ORDERED: NITROGLYCERIN/D5W 50 MG/250 ML BTL IV SCH (12:00)
[2022-04-30 12:36] LABS: Potassium 3.3 mmol/L (3.5-5.1); Troponin High Sensitivity 13.6 pg/mL (<58.9)
--- NOTE | 2022-04-30 14:53 | RAD REPORT ---
EXAM DESCRIPTION: CT abdomen and pelvis without intravenous contrast CLINICAL HISTORY: 67 years Female renal fail TECHNIQUE: Axial CT imaging of the abdomen and pelvis was performed without oral or intravenous cont rast. Sagittal and coronal reconstructed images were then performed. The CT study is performed acco rding to ALARA (as low as reasonably achievable) or ALARA/IMAGE GENTLY, with automatic adjustment of mA and/or kV according to patient size. Performed on: 04/30/2022 at 4:48 AM COMPARISON: CT abdomen and pelvis performed on 01/15/2022. FINDINGS: Lung bases: Lung bases are clear. There is a punctate calcified granuloma in the posterior left lower lobe. The heart is enlarged and is grossly stable. Liver: The liver is normal in size and configuration. No focal hepatic abnormalities are appreciated on this unenhanced scan. Liver attenuation is within normal limits. Spleen: Spleen is mildly enlarged and measures approximately 13 cm in craniocaudal dimension. No foca l splenic abnormalities are appreciated on this unenhanced scan. Gallbladder and bile duct: The gallbladder is surgically absent. There is no biliary ductal dilatat ion. Pancreas: The pancreas is grossly normal in size and configuration. Adrenal Glands: The adrenal glands are normal in size and configuration. Kidneys: The kidneys are normal in size and position. There is no evidence of hydronephrosis. There a re punctate bilateral nonobstructing renal calculi. There are grossly stable, sharply marginated low density renal mass lesions consistent with incidental renal cysts. The largest arises from the upper pole of the left kidney and measures approximately 4.8 x 4.9 cm in cross-sectional diameter. No follo w-up imaging is recommended. Stomach: The stomach is grossly normal. There is no definite hiatal hernia. Bowel: The bowel gas pattern is non specific and non obstructive. Appendix: The appendix is normal. Free air: There is no evidence of free air. Free fluid: There is no evidence of free fluid. Vasculature: The aorta is normal in caliber and contour. There are mild atherosclerotic calcification s along the abdominal aorta and proximal major branch vessels. The inferior vena cava is grossly unre markable. Lymphadenopathy: No pathologic lymphadenopathy is identified. Bladder: The bladder is incompletely distended and smooth in contour. Reproductive: The uterus is grossly within normal limits. Bones: No acute osseous abnormalities are identified. Soft tissues: No acute soft tissue abnormalities are identified. IMPRESSION: 1. No evidence of acute intra-abdominal or intrapelvic pathology. 2. Punctate bilateral nonobstructing renal calculi. 3. Grossly stable, sharply marginated low density renal mass lesions consistent with incidental august al cysts. The largest arises from the upper pole of the left kidney and measures approximately 4.8 x 4.9 cm in cross-sectional diameter. No follow-up imaging is recommended. 4. Mild splenomegaly. 5. Remote cholecystectomy. 6. Cardiomegaly. Electronically signed by: Ariana Tejada DO 04/30/2022 6:11 AM DATA ANALYSIS INTERN Due to temporary technical issues with the PACS/Fluency reporting system, reports are being signed by the in house radiologists without review as a courtesy to insure prompt reporting. The interpreting radiologist is fully responsible for the content of the report.
--- NOTE | 2022-04-30 17:37 | EKG ---
Test Date: 2022-04-30 Test Time: 01:38:22 Coiled Tubing Supervisor: NANCY MEASUREMENT RESULTS: Intervals: Rate: 62 [place]: QRSD: 86 QT: 472 QTc: 479 [place]: P: [place]: QRS: -3 T: 231 INTERPRETIVE STATEMENTS: Atrial fibrillation Voltage criteria for left ventricular hypertrophy ST & T wave abnormality, consider inferior ischemia ST & T wave abnormality, consider anterolateral ischemia Abnormal ECG Compared to ECG 04/25/2022 03:18:57 Left ventricular hypertrophy now present Possible ischemia now present Prolonged QT interval no longer present ST (T wave) deviation still present Electronically Signed On 04-30-22 17:36:30 [facility] SPECIALIST by Mike Lund
[2022-04-30 18:59] VITALS: O2SAT 98
[2022-04-30] MEDS ORDERED: TRAZODONE 50 MG TABLET PO SCH (21:00)
[2022-05-01] MEDS ORDERED: LABETALOL 20 MG/4ML SYRINGE IV ONE (01:25)
[2022-05-01] MEDS: Ringers Lactate 1,000 ML IV SCH (02:24)
[2022-05-01 03:27] LABS: Potassium 3.4 mmol/L (3.5-5.1)
[2022-05-01 06:02] VITALS: TEMP 97.7
--- NOTE | 2022-05-01 07:31 | RAD REPORT ---
EXAM DESCRIPTION: US - Abdomen Pelvis Scan US - 05/01/2022 7:13 am CLINICAL HISTORY: High blood pressure malignant HTN, renal insufficiency COMPARISON: <Comparisons> FINDINGS: The bilateral kidneys are normal in size, the right measuring 11.8 cm and the left measuri ng 10.5 cm. Bilateral simple renal cysts are present. The largest in the right measures 4.6 cm. The l argest on the left measures 5.2 cm. Decompressed bladder. Aortic velocity: 27 cm/second Right proximal renal artery: 48 cm/second Right mid renal artery: 53 cm/second Right distal renal artery: 49 cm/second Right renal arcuate artery resistive index: 0.8 Right renal artery / aorta ratio: 1.2 Left proximal renal artery: 58 cm/second Left mid renal artery: 54 cm/second Left distal renal artery: 27 cm/second Left renal arcuate artery resistive index: 0.8 Left renal artery/aorta ratio: 1.2 Normal waveforms demonstrated within the bilateral renal arteries. IMPRESSION: No evidence of hemodynamically significant stenosis within the bilateral renal arteries. Bilateral renal cysts.
[2022-05-01 08:22] VITALS: BP 181/79
[2022-05-01] MEDS ORDERED: POTASSIUM CL SA 10 MEQ TAB PO ONE ×2 (08:24→10:00)
--- NOTE | 2022-05-01 08:29 | P.DS ---
Admission Date: 04/30/22 Discharge Date: 05/01/22 Disposition: ROUTINE DISCHARGE Discharge Condition: GOOD Reason for Admission: ROHAN, chest pain Consultations: 1. Nephrology Hospital Course: DIAGNOSES: # Hypertensive Urgency - possible cause of Chest Pain # KDIGO Stage II Acute Kidney Injury - possibly Pre-Renal vs Medication-Induced Nephropathy # Chronic Diastolic Congestive Heart Failure # Chronic Obstructive Pulmonary Disease on Intermittent Home Oxygen # Paroxysmal Atrial Fibrillation # Chronic Human Immunodeficiency Virus Infection HOSPITAL COURSE: Ms. Marjan Kolb is a 67 year old female with a past medical history significant for chronic diastolic congestive heart failure, chronic obstructive pulmonary disease, paroxysmal atrial fibrillation, chronic human immunode ficiency virus infection, and hypertension who was admitted to the [facility] on 04/30/2022 for chest pain. She was admitted to the Medicine service. Upon further evaluation, she was found to have hypertensive urgency. Her troponin trend was flat. Her EKG was reportedly without STEMI criteria. She had recently presented to our hospital in January 2022. On 02/01/2022, she underwent a left heart catheterization, which revealed, "1. Mild nonobstructive coronary artery disease. 2. Mildly elevated LVEDP." Additionally, upon further evaluation, she was found to have an acute kidney injury, which was thought to be secondary to pre-renal +/- medication induced nephropathy (triamterene). Nephrology was consulted and she was evaluated by Dr. Pena. He recommended that her triamterene by discontinued at discharge. He will follow-up with her in clinic in the next several days to monitor her renal function. He has cleared her for discharge and he will arrange this follow-up appointment. On 05/01/2022, she was seen on morning rounds and deemed medically stable for discharge. She was discharged with instructions to schedule follow-up appointments with her PCP (Dr. Rahman) in 3-5 days and with Nephrology (Dr. Pena) in 3-5 days. She was given the opportunity to ask questions and reported no further questions. Furthermore, all questions were answered to the best of my ability. Today, I personally spent 25 minutes on her case, of which greater than 50% of the time was spent in patient education, counseling, and coordination of care as described above. - Physical Exam General: Alert, In no apparent distress, Oriented x3 HEENT: Atraumatic, Mucous membr. moist/pink, EOMI, Sclerae nonicteric Neck: JVD not distended Respiratory: Clear to auscultation bilaterally, Normal air movement Cardiovascular: No edema, Regular rate/rhythm, Normal S1 S2, No gallops, No rubs, No murmurs Gastrointestinal: Normal bowel sounds, Soft and benign, Non-distended, No tenderness, No rebound, No guarding Musculoskeletal: No clubbing Integumentary: No rashes Neurological: Normal speech, Cranial nerves 3-12 intact, Normal affect Vital Signs/Physical Exam: Temp Pulse Resp BP Pulse Ox 97.7 F 56 18 181/79 H 99 05/01/22 08:00 05/01/22 08:00 05/01/22 08:00 05/01/22 08:00 05/01/22 08:00 Laboratory Data at Discharge: WBC 5.30 K/uL (4.3-10.9) 04/30/22 03:01 Hgb 11.4 g/dL (12.0-15.0) L 04/30/22 03:01 Hct 33.3 % (36.0-45.0) L 04/30/22 03:01 Plt Count 163 K/uL (152-406) 04/30/22 03:01 Sodium 141 mmol/L (136-145) 05/01/22 02:41 Potassium 3.4 mmol/L (3.5-5.1) L 05/01/22 02:41 BUN 39 mg/dL (7-18) H 05/01/22 02:41 Creatinine 1.12 mg/dL (0.55-1.02) H 05/01/22 02:41 Glucose 89 mg/dL (74-106) 05/01/22 02:41 Magnesium 2.4 mg/dL (1.6-2.4) 04/30/22 03:01 Home Medications: Raltegravir Potassium [Isentress] 1 tab PO BID 02/28/12 Sertraline [Zoloft*] 2 tab PO BID 09/15/12 Metoprolol Tartrate 100 mg PO BID #60 tablet 02/03/20 Emtricitabine/Tenofov Alafenam [Descovy 200-25 mg Tablet] 1 tab PO DAILY 03/05/21 Amlodipine Besylate 1 tab PO DAILY 03/30/21 Dexlansoprazole [Dexilant] 60 mg PO DAILY 03/30/21 Bupropion HCl [Wellbutrin Xl] 1 tab PO DAILY 10/16/21 Clopidogrel Bisulfate [Plavix*] 1 tab PO DAILY 10/16/21 Trazodone [Desyrel*] 1 tab PO BEDTIME 10/16/21 Spironolactone [Aldactone*] 25 mg PO DAILY #30 tab 02/04/22 Hydromorphone [Dilaudid*] 2 mg PO DAILY 03/15/22 Losartan Potassium [Cozaar*] 50 mg PO BID #60 tablet 04/25/22 Physician Discharge Instructions: 1. Please schedule a follow-up appointment with your PCP (Dr. Rahman) in 3-5 days 2. Please schedule a follow-up appointment with Nephrology (Dr. Pena) in 3-5 days - He will check your kidney blood work and adjust your blood pressure medication at this time Diet: AHA Activity: Ad pricila Followup: Oscar Pena [ACTIVE - CAN ADMIT] - Lele Rahman DO, DO [ACTIVE - CAN ADMIT] - Time spent managing pt's care (in minutes): 25
[2022-05-01] MEDS: NEOMY/POLY/HC 1% OTIC DROPS RIGHT EAR SCH (09:00)
[2022-05-01] MEDS ORDERED: POTASSIUM 25 MEQ EFFERV TAB PO ONE (09:00)
[2022-05-01] MEDS: METOPROLOL TAR 50 MG TAB PO SCH (09:07)
[2022-05-01] MEDS: BUPROPION HCL XL 150 MG TAB PO SCH (09:07)
[2022-05-01] MEDS: CLOPIDOGREL 75 MG TABLET PO SCH (09:07)
[2022-05-01] MEDS: SERTRALINE HCL 100 MG TAB PO SCH (09:07)
[2022-05-01] MEDS: AMLODIPINE 10 MG TAB PO SCH (09:07)
--- NOTE | 2022-05-03 15:08 | EKG ---
Test Date: 2022-04-30 Test Time: 01:39:05 Lasting Room Supervisor: NANCY MEASUREMENT RESULTS: Intervals: Rate: 62 TX: 198 QRSD: 92 QT: 496 QTc: 503 [place]: P: 22 TX: 198 QRS: -2 T: -57 INTERPRETIVE STATEMENTS: Normal sinus rhythm Left ventricular hypertrophy with repolarization abnormality Abnormal ECG Compared to ECG 04/30/2022 01:38:22 Early repolarization now present Atrial fibrillation no longer present ST (T wave) deviation no longer present Possible ischemia no longer present Electronically Signed On 05-03-22 14:59:22 WEED BURNER by Mike Lund
== END 2022-05-01 10:55 | disposition home or self-care (01) | DRG 683 ==
LOC: ER 01:05 → ERHOLD 04:23 → 4TH 12:53 → OBSVTOIN 14:32 → 2ND 15:37
PROVIDERS: ADMIT Internal Medicine; ATTEND Internal Medicine
DX: N17.9 Acute kidney failure, unspecified (principal); I50.32 Chronic diastolic (congestive) heart failure; I11.0 Hypertensive heart disease with heart failure; I48.0 Paroxysmal atrial fibrillation; E87.6 Hypokalemia; N28.1 Cyst of kidney, acquired; E78.5 Hyperlipidemia, unspecified; J44.9 Chronic obstructive pulmonary disease, unspecified; I16.0 Hypertensive urgency; H60.8X2 Other otitis externa, left ear; K21.00 Gastro-esophageal reflux disease with esophagitis, without bleeding; I25.10 Atherosclerotic heart disease of native coronary artery without angina pectoris; T50.2X5A Adverse effect of carbonic-anhydrase inhibitors, benzothiadiazides and other diuretics, initial encounter; R51.9 Headache, unspecified; Z21 Asymptomatic human immunodeficiency virus [HIV] infection status; Z88.1 Allergy status to other antibiotic agents; Z88.5 Allergy status to narcotic agent; Z99.81 Dependence on supplemental oxygen; Z79.02 Long term (current) use of antithrombotics/antiplatelets; Z90.49 Acquired absence of other specified parts of digestive tract; Z91.048 Other nonmedicinal substance allergy status; Z79.899 Other long term (current) drug therapy; Z96.611 Presence of right artificial shoulder joint; Z20.822 Contact with and (suspected) exposure to COVID-19
CPT/HCPCS: 36415; 71045; 74176; 76377; 76770; 80048; 81003; 82550; 83735; 83880; 84484; 85025; 87811; 93005; 93975; 96361; 96374; 96375; 99285; G0378; J2405; J7040; J7120

== ENCOUNTER 2022-05-04 04:54 | Emergency (ER) | payer OTHER ==
--- OUTSIDE RECORDS SUMMARY | 2022-05-04 05:15 | XMS REPORT | Continuity of Care Document ---
:1955 Author Organization [facility] t Address [address] [place] [address] Care Team Providers Name Role Phone Urmila Rahman Primary Care Physician ELAN LIRA Attending Clinician Unavailable BEVERLY LAYTON Attending Clinician Unavailable SANTIAGO CARDENAS Attending Clinician Unavailable PAULETTE GRAY S Attending Clinician Unavailable Paulette Galvan S Attending Clinician UNKNOWN, ATTENDING Attending Clinician Unavailable Robbi Bal Attending Clinician Santiago Sanchez Attending Clinician [facility] Attending Clinician Unavailable Isaias Whiteside RN Attending Clinician Unavailable TOMY MARIE Attending Clinician Unavailable Reilly Means MD Attending Clinician Ofe Shields MD Attending Clinician Tomy Marie MD Attending Clinician Doctor Unassigned, [place] Attending Clinician Unavailable Bill COLES Attending Clinician Unavailable Bill Rose Attending Clinician CHARITY MCALLISTER Attending Clinician Unavailable Charity Mcallister MD Attending Clinician GADIEL KOEHLER Attending Clinician Unavailable Mike Lund Attending Clinician Unavailable NIKOLAI REEVES Attending Clinician Unavailable Eliseo Arce MD Attending Clinician Carol Ann IZQUIERDO, Sarai Lieberman Attending Clinician [phone] Ashly Pelletier MA Attending Clinician Unavailable Dagoberto Bass MD Attending Clinician [place] Evangelista Attending Clinician Lab, [facility] Pob I Attending Clinician Unavailable [...] Attending Clinician Unavailable Leyda Willis Attending Clinician [phone] Selvin RAMIREZ, Stefanie Attending Clinician Unavailable TOMY MARIE Admitting Clinician Unavailable Frank JENKINS, Tmoy Admitting Clinician Bill COLES Admitting Clinician Unavailable RahmanLele bird Kristen Admitting Clinician Unavailable Mike Lund Admitting Clinician Unavailable ELISEO ARCE Admitting Clinician Unavailable DO PORSHA STREETER Admitting Clinician Unavailable Payers Payer Name Policy Type Policy Number Effective Date Expiration Date S gabino [facility] [id number] 2012 STAR PLUS OON 00:00:00 [facility] [id number] 2019 DUAL COMPLETE HMO 00:00:00 [facility] [id number] 2019 PLUS 00:00:00 MEDICAID [facility] [id number] 2020 00:00:00 [facility] [id number] 2019 [facility] 00:00:00 [employer] MEDICARE ADV [id number] 2019 2019 00:00:00 00:00:00 Problems Condition Condition Condition Status Onset Resolution Last Treating Co mments Source Name Details Category Date Date Treatment Clinician Date Dyspnea, Dyspnea, Disease Active Unive rs unspecifie unspecifie 02-11 it y of d type d type 00:00: [place] [address] Medical Branch Gastropare Gastropare Disease Active Overview : Methodi sis sis 4-[address] 00:00: [facility] note l might be different from the original. Added automatic ally from request for surgery [id number] Dysphagia Dysphagia Disease Active Overview: Methodi 4-[address] 00:00: [facility] 00 note l might be different from the original. Added automatic ally from request for surgery [id number] CCL / EPS CCL / EPS Diagnosis Active 2020-10-15 Memoria PVI PVI 3-30 17:07:00 l ABLATION ABLATION 00:00: Patel n W/ CARTO / W/ CARTO / 00 GA / T GA / T Active 08/19/2020 [facility] Food Food Disease Active 2019-05 [...] (BMI 2-19 ity of 30-39.9) 30-39.9) 00:00: [place] [facility] Anemia Anemia Disease Active 2014-05 Univers 0-03 ity of 00:00: [place] [facility] Hypovolemi Hypovolemi Disease Active 2014-05 U nivers a due to a due to 0-02 ity of hemorrhage hemorrhage 00:00: [place] [facility] Chest pain Chest pain Disease Active 2014-05 U nivers 0-02 ity of 00:00: [place] [facility] 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:00: [place] shoulder shoulder 00 Medica l arthroplas arthroplas Br anch ty ty Posttrauma Posttrauma Disease Active U nivers tic stress tic stress 08 it y of disorder disorder 00:00: [place] [facility] 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 00:00: [place] virus virus Medical (HIV) (HIV) Branch disease disease Bipolar 2 Bipolar 2 Disease Active Uni vers disorder disorder 11-18 ity of 00:00: [place] [facility] Chronic Chronic Disease Active Univers hepatitis hepatitis 11-18 ity of C C 00:00: [place] [facility] Hypertensi Hypertensi Disease Active U nivers on on 11-18 ity of 00:00: [place] [facility] Allergies, Adverse Reactions, Alerts Allergy Allergy Status Severity Reaction(s) Onset Inactive Treating Comm ents Source Name Type Date Date Clinician sulfamet DA Active SV N/[facility] hoxazole 1-25 Clear 00:00: [address] trimetho DA Active SV [facility] prim 1-25 Clear 00:00: [facility] codeine DA Active SV N/V [facility] 1-25 Clear 00:00: [facility] Metoclop Propensi Active [place] ramide [...] Date Stop Date Source Natural father Diabetes [facility] Natural father Other - see comments [facility] Natural [facility] Hy[facility] Natural mother [facility] Social History Social Habit Start Date Stop Date Quantity Comments Source History SDOH [facility] Alcohol Frequency Hospita l History SDOH [facility] Alcohol Std Drinks Hospit al History SDOH [facility] Alcohol [facility] Tobacco use and 2022-02-11 2022-02-11 Former smokeless Uni versity of exposure 00:00:00 00:00:00 tobacco user [facility] [facility] Tobacco Comment 2022-02-11 2022-02-11 Smokes approx 1-2 Un iversity of 00:00:00 00:00:00 cigarettes per [facility] day when she Branch smokes Exposure to 2022-01-31 2022-02-10 Not sure University of SARS-CoV-2 (event) 00:00:00 22:53:00 [facility] Alcohol intake 2020-12-08 2020-12-08 Current drinker [facility] 00:00:00 00:00:00 of alcohol Hospital (finding) Cigarettes smoked 2020-09-05 2020-09-[address] current (pack per 00:00:00 00:00:00 [facility] l day) - Reported Cigarette 2020-09-05 2020-09-05 [facility] pack-years 00:00:00 00:00:00 Hospital Alcohol Comment 2016-09-23 2016-09-23 rare [facility] 00:00:00 00:00:00 Hospital History of tobacco 2011-09-29 User of smokeless University of use 00:00:00 tobacco [facility] Sex Ass[birth year] At [birth year] [facility] 00:00:00 00:00:00 Smoking Status Start Date Stop Date Source Ex-smoker 2022-02-11 00:00:00 2022-02-11 00:00:00 Universi ty of [facility] Medications Ordered Filled Start [...] 04/22/22 at 1645, Routine amoxicillin 2021-05 Yes [id number] 1{tbl} Take 1 Univers -clavulanat 2- 210337 tablet by i ty of e 875-125 00:00: mouth [place] mg per 00 every 12 Medical tablet (twelve) Branch hours. ondansetron 2021-05 Yes [id number] 4mg Take 1 Univers 4 mg 06-23 700008 tablet by ity of disintegrat 00:00: mouth [place] ing tablet 00 every 8 Medica l (eight) Branch hours as needed for Nausea and Vomiting (N/V). zoster 2021-05- Yes [id number] .5mL 0.5 mL by Univers vaccine, 0-05 03- 9104 Intramuscu ity of recombinant 00:00: 04:59 lar route [place] (SHINGRIX, 00 :00 once now Medic al PF,) for 1 Branch injection dose. And repeat in 2-6 months zoster 2021-05- No [id number] .5mL 0.5 mL by Univers vaccine, 0-05 03- 9104 Intramuscu ity of recombinant 00:00: 04:59 lar route [place] (SHINGRIX, 00 :00 once now Medic al PF,) for 1 Branch injection dose. And repeat in 2-6 months zoster 2021-05- No [id number] .5mL 0.5 mL by Univers vaccine, 0-05 [...] o f 1 mg tablet 19:28: at [place] [address] bedtime. Medical Branch traZODone 2021-0 Yes 50mg Take 50 mg Un matt 100 mg 9-27 by mouth ity of tablet 19:28: at [place] [address] bedtime. Medical Branch hydralAZINE 2021-0 Yes 25mg [...] o f 1 mg tablet 19:28: at [place] [address] bedtime. Medical Branch traZODone 2021-0 Yes 50mg Take 50 mg Un matt 100 mg 9-27 by mouth ity of tablet 19:28: at [place] [address] bedtime. Medical Branch hydralAZINE 2021-0 Yes 25mg [...] o f 1 mg tablet 19:28: at [place] [address] bedtime. Medical Branch traZODone 2021-0 Yes 50mg Take 50 mg Un matt 100 mg 9-27 by mouth ity of tablet 19:28: at [place] [address] bedtime. Medical Branch hydralAZINE 2021-0 Yes 25mg [...] o f 1 mg tablet 19:28: at [place] [address] bedtime. Medical Branch traZODone 2021-0 Yes 50mg Take 50 mg Un matt 100 mg 9- by mouth ity of tablet 19:28: at [place] [address] bedtime. Medical Branch hydralAZINE 2021-0 Yes 25mg [...] o f 1 mg tablet 19:28: at [place] [address] bedtime. Medical Branch traZODone 2021-0 Yes 50mg Take 50 mg Un matt 100 mg 9-27 by mouth ity of tablet 19:28: at [place] [address] bedtime. Medical Branch hydralAZINE 2021-0 Yes 25mg [...] 100 mg 04 (two) Medical tablet times [place] daily. amLODIPine 2021-0 Yes 10mg Take 10 mg U nivers (NORVASC) 9-27 by mouth ity of 10 mg 19:28: daily. [place] tablet 04 Medical Branch clonazePAM 2021-0 Yes 1mg Take 1 mg Un matt (KLONOPIN) 9-27 by mouth ity o f 1 mg tablet 19:28: at [place] [address] bedtime. Medical Branch traZODone 2021-0 Yes 50mg Take 50 mg Un matt 100 mg 9-27 by mouth ity of tablet 19:28: at [place] [address] bedtime. Medical Branch hydralAZINE 2021-0 Yes 25mg [...] o f 1 mg tablet 19:28: at [place] [address] bedtime. Medical Branch traZODone 2021-0 Yes 50mg Take 50 mg Un matt 100 mg 9-27 by mouth ity of tablet 19:28: at [place] [address] bedtime. Medical Branch hydralAZINE 2021-0 Yes 25mg [...] by ity of (LOPRESSOR) 19:28: mouth 2 [place] 100 mg 04 (two) Medical tablet times Branch daily. amLODIPine 2021-0 Yes 10mg Take 10 mg U nivers (NORVASC) 9-27 by mouth ity of 10 mg 19:28: daily. [place] tablet 04 Medical Branch clonazePAM 2021-0 Yes 1mg Take 1 mg Un matt (KLONOPIN) 9-27 by mouth ity o f 1 mg tablet 19:28: at [place] [address] bedtime. Medical Branch traZODone 2021-0 Yes 50mg Take 50 mg Un matt 100 mg 9-27 by mouth ity of tablet 19:28: at [place] [address] bedtime. Medical Branch hydralAZINE 2021-0 Yes 25mg [...] 100 mg 04 (two) Medical tablet times [place] daily. amLODIPine Yes 10mg Take 10 mg U nivers (NORVASC) 9- by mouth ity of 10 mg 19:28: daily. [place] tablet 04 Medical Branch clonazePAM Yes 1mg Take 1 mg Un matt (KLONOPIN) 02-16 by mouth ity o f 1 mg tablet 19:28: at [place] [address] bedtime. Medical Branch traZODone Yes 50mg Take 50 mg Un matt 100 mg 02-16 by mouth ity of tablet 19:28: at [place] [address] bedtime. Medical Branch cefpodoxime 2021- Yes [id number] 200mg Take 1 Univers 200 mg 02-16 tablet by ity of tablet 00:00: 04:59 mouth in [place] 00 :00 the Medical morning Branch and 1 tablet in the evening. Do all this for 3 days. cefpodoxime 2021- Yes [id number] 200mg Take 1 Univers 200 mg -18 03- tablet by ity of tablet 00:00: 04:59 mouth in [place] 00 :00 the Medical morning Branch and [...] First dose [place] mg 00 on [facility] 02/13/22 at Branch 1200, Until Discontinu ed, Routine tiZANidine Yes 4mg 4 mg, Univer s (ZANAFLEX) 02-12 Oral, Q8H, ity of tablet 4 mg 19:00: First dose [place] 00 on Tue [facility] 02/12/22 at Branch 1400, Until Discontinu ed, Routine HYDROmorpho Yes 4mg 4 mg, Unive rs ne 02-12 Oral, ity of (DILAUDID) 17:37: Q6HPRN, [facility] s tablet 4 mg 07 Starting Medi porfirio on Tue [place] 02/12/22 at 1237, Until Discontinu ed, Routine, Pain (scale 4-6) morpHINE (2 2021- No 2mg 2 mg, Slow Univers mg/mL) 02-12 IV Push, ity of injection 2 17:36: 20:36 Q6HPRN, [place] mg 46 :24 Starting Medical on Tue [place] 02/12/22 at 1236, Until 02/14/22 at 1536, Routine, Pain (scale 7-10) cefTRIAXone 202- No 2000mg 2,000 mg, Univers (ROCEPHIN) 02-12 IV ity of 2,000 mg in 17:00: 18:24 Piggyback, [place] NaCl 0.9% 00 :00 Q24H ABX, Medic [...] [place] mg 37 Starting Medical on [facility] Branch 02/11/22 at 1618, Until Discontinu ed, Routine, SBP > 170 nystatin-tr 2021-0 Yes Topical, Un matt iamcinolone 02-11 TID, First it y of (MYCOLOG) 19:00: dose on [place] cream 00 [facility] Medical 02/11/22 at Branch 1400, Until Discontinu ed, Routine busPIRone 2021-0 Yes 30mg 30 mg, Univer s (BUSPAR) 02-11 Oral, BID, ity o f tablet 30 18:00: First dose [place] mg 00 on [facility] Medical 02/11/22 at Branch 1300, Until Discontinu ed, Routine raltegravir 2021-0 Yes 400mg 400 mg, Un matt (ISENTRESS) 02-11 Oral, BID, it y of tablet 400 18:00: First dose [place] mg 00 on [facility] 02/11/22 at Branch 1300, Until Discontinu ed, JOE metoprolol 2021-0 Yes 100mg 100 mg, Uni vers tartrate 02-11 Oral, BID, ity o f (LOPRESSOR) 18:00: First dose [place] tablet 100 00 on [facility] Medical mg 02/11/22 at Branch 1300, Until Discontinu ed, Routine lisinopriL 2021-0 Yes 40mg 40 mg, Unive rs (PRINIVIL,Z 02-11 Oral, BID, it y of ESTRIL) 18:00: First [place] tablet 40 00 on [facility] Medical mg 02/11/22 at Branch 1300, Until Discontinu ed, Routine emtricitabi 2021-0 Yes 1{tbl} 1 tablet, Univers ne-tenofovi 02-11 Oral, ity of r alafen 18:00: DAILY, [place] (DESCOVY) 00 First dose Medi porfirio tablet 1 on [facility] tablet 02/11/22 at 1300, Until Discontinu ed, Routine ipratropium 2021-0 Yes .5mg 0.5 mg, Uni vers (ATROVENT) 02-11 Inhalation ity of 0.02 % 17:57: , QIDPRN, [place] nebulizer 10 Starting Medica l solution on [facility] Branch 0.5 mg 02/11/22 at 1257, Until Discontinu ed, Routine, Wheezing, Shortness of Breath amLODIPine Yes 10mg 10 mg, Unive rs (NORVASC) 02-11 Oral, ity of tablet 10 17:30: DAILY, [place] mg 00 First dose Medical (after Branch last modificati on) on [facility] 02/11/22 at 1230, Until Discontinu ed, Routine hydrALAZINE 2021- No 25mg 25 mg, Uni vers (APRESOLINE 02-11 Oral, ity of ) tablet 25 17:30: 12:54 DAILY, [place] mg 00 :55 First dose Medical (after Branch last modificati on) on [facility] 02/11/22 at 1230, Until Discontinu ed, Routine HYDROcodone 2021- No 1{tbl} 1 tablet, Univers -acetaminop 02-11 Oral, ity of hen (NORCO 14:11: 17:37 Q6HPRN, [place] 5) 5-325 mg 03 :24 Starting Medi porfirio tablet 1 on [facility] Branch tablet 02/11/22 at 0911, Until Tue02/12/22 at 1237, Routine, Pain (scale 7-10) melatonin Yes 3mg 3 mg, Univers (MELATIN) 02-11 Oral, ity of tablet 3 mg 14:08: QHSPRN, [place] 17 Starting Medical on [facility] Branch 02/11/22 at 0908, Until Discontinu ed, Routine, Insomnia acetaminoph 2021- No 1{tbl} 1 tablet, Univers en-codeine 02-11 Oral, ity of (TYLENOL 14:06: 17:37 Q6HPRN, [place] #3) 300-30 19 :24 Starting Medic al mg tablet 1 on [facility] Branch tablet 02/11/22 at 0906, Until Tue02/12/22 at 1237, Routine, Pain (scale 4-6) sennosides- Yes 1{tbl} 1 tablet, Univers docusate 02-11 Oral, ity of sodium 14:06: QDAILYPRN, [place] (SENOKOT-S) 09 Starting Medi porfirio 8.6-50 mg on [facility] per tablet 02/11/22 at 1 tablet 0906, Until Discontinu ed, Routine, Constipati on ondansetron 2021-0 Yes 4mg 4 mg, Slow Univers (ZOFRAN 02-11 IV Push, ity of (PF)) 14:05: Q6HPRN, [place] injection 4 59 Starting Medi porfirio mg on [place] Branch 02/11/22 at 0905, Until Discontinu ed, Routine, Nausea and Vomiting (N/V) acetaminoph 2021-0 Yes 650mg 650 mg, Un matt en 02-11 Oral, ity of (TYLENOL) 14:04: Q6HPRN, [place] tablet 650 37 Starting Medic al mg [...] ity of ) 25 mg 09:10: daily. [address] amLODIPine 0 Yes 10mg Take 10 mg U nivers (NORVASC) 02-11 by mouth ity of 10 mg 09:10: daily. [address] Branch piperacilli 2021-0 202- No 3.375g [...] therapy: 72 hours iopamidol 2022-0 2022- No [id number] 60mL 60 mL, Univers (ISOVUE 02-11 Intravenou [...] 00 :00 dose, On Medi porfirio mg [facility] Branch 02/11/22 at 0045, JOE acetaminoph 2021- No 975mg 975 mg, U nivers en 02-11 Oral, ity of (TYLENOL) 05:15: 04:19 ONCE, 1 [place] tablet 975 00 :00 dose, On Medic al mg [facility] Branch 02/11/22 at 0015, JOE emtricitabi 0 Yes [id number] Take one Univers ne-tenofovi 9-12 po daily ity of r alafen 00:00: [place] (DESCOVY) 00 Medical tablet Branch emtricitabi 0 Yes [id number] Take one Univers ne-tenofovi 9-12 po daily ity of r alafen 00:00: [place] (DESCOVY) 00 Medical tablet Branch emtricitabi 0 Yes [id number] Take one Univers ne-tenofovi 9-12 po daily ity of r alafen 00:00: [place] (DESCOVY) 00 Medical tablet Branch emtricitabi Yes [id number] Take one Univers ne-tenofovi 9-12 po daily ity of r alafen 00:00: [place] (DESCOVY) 00 Medical tablet Branch emtricitabi Yes [id number] Take one Univers ne-tenofovi 9-12 po daily ity of r alafen 00:00: [place] (DESCOVY) 00 Medical tablet Branch emtricitabi Yes [id number] Take one Univers ne-tenofovi 9-12 po daily ity of r alafen 00:00: [place] (DESCOVY) 00 Medical tablet Branch emtricitabi Yes [id number] Take one Univers ne-tenofovi 9-12 po daily ity of r alafen 00:00: [place] (DESCOVY) 00 Medical tablet Branch emtricitabi Yes [id number] Take one Univers ne-tenofovi 9-12 po daily ity of r alafen 00:00: [place] (DESCOVY) 00 Medical tablet Branch emtricitabi Yes [id number] Take one Univers ne-tenofovi 9-12 po daily ity of r alafen 00:00: [place] (DESCOVY) 00 Medical tablet Branch emtricitabi Yes [id number] Take one Univers ne-tenofovi 9-12 po daily ity of r alafen 00:00: [place] (DESCOVY) 00 Medical tablet Branch naproxen 0 Yes [id number] 500mg Take 1 U nivers (NAPROSYN) 7-24 tablet by ity of 500 mg 00:00: mouth in [place] tablet 00 the Medical morning Branch and 1 tablet in the evening. Take with meals. methocarbam Yes [id number] 500mg Take 1 Univers oL 500 mg 7-24 tablet by ity o f tablet 00:00: mouth 4 [place] 00 (four) Medical times Branch daily. naproxen Yes [id number] 500mg Take 1 U nivers (NAPROSYN) 7-24 tablet by ity of 500 mg 00:00: mouth in [place] tablet 00 the Medical morning Branch and 1 tablet in the evening. Take with meals. methocarbam 2021-0 Yes [id number] 500mg Take 1 Univers oL 500 mg 7-24 tablet by ity o f tablet 00:00: mouth 4 [place] 00 (four) Medical times Branch daily. naproxen 2021-0 Yes [id number] 500mg Take 1 U nivers (NAPROSYN) 7-24 tablet by ity of 500 mg 00:00: mouth in [place] tablet 00 the Medical morning Branch and 1 tablet in the evening. Take with meals. methocarbam 2021-0 Yes [id number] 500mg Take 1 Univers oL 500 mg 7-24 tablet by ity o f tablet 00:00: mouth 4 [place] 00 (four) Medical times [place] daily. naproxen 2021-0 2021- No [id number] 500mg Take 1 Univers (NAPROSYN) 7-24 10-14 tablet by ity of 500 mg 00:00: 00:00 mouth in [place] tablet 00 :00 the Medical morning Branch and 1 tablet in the evening. Take with meals. methocarbam 2021-0 2021- No [id number] 500mg Take 1 Univers oL 500 mg 7-24 10-14 tablet by ity of tablet 00:00: 00:00 mouth 4 [place] 00 :00 (four) [facility] times [place] daily. naproxen 2021-0 2- No [id number] 500mg Take 1 Univers (NAPROSYN) 7-24 10-14 tablet by ity of 500 mg 00:00: 00:00 mouth in [place] tablet 00 :00 the Medical morning Branch and 1 tablet in the evening. Take with meals. methocarbam 2021-0 2022- No [id number] 500mg Take 1 Univers oL 500 mg 7-24 10-14 tablet by ity of tablet 00:00: 00:00 mouth 4 [place] 00 :00 (four) Medical times [place] daily. esomeprazol 2021-2- No 40mg Take 40 [...] Medical daily. Branch traZODONE No Take by [facility] ers (DESYREL) 11-20 mouth at ity o f 10 mg/mL 09:10: 00:00 bedtime. [place] oral 28 :00 Medical suspension Branch hydralAZINE Yes 25mg Take 25 mg Univers (APRESOLINE 11-20 by mouth ity of ) 25 mg 08:47: daily. [place] tablet 47 Medical Branch cephALEXin 2021- No [id number] 500mg Take 1 Univers (KEFLEX) 10-24 capsule [...] 7-10). Indication s: acute pain buPROPion Yes [id number] 150mg Take 1 U nivers XL 4-12 tablet by ity of (WELLBUTRIN 00:00: mouth [place] XL) 150 mg 00 daily. Medical 24 hr Branch tablet busPIRone Yes [id number] 30mg Take 1 Un matt 30 mg 4-12 tablet by ity of tablet 00:00: mouth 2 [place] 00 (two) Medical times Branch daily. SERTraline Yes [id number] 200mg Take 2 Univers 100 mg 4-12 tablets by ity of tablet 00:00: mouth [place] 00 daily. Medical Branch buPROPion Yes [id number] 150mg Take 1 U nivers XL 4-12 tablet by ity of (WELLBUTRIN 00:00: mouth [place] XL) 150 mg 00 daily. Medical 24 hr Branch tablet busPIRone Yes [id number] 30mg Take 1 Un matt 30 mg 4-12 tablet by ity of tablet 00:00: mouth 2 [place] 00 (two) Medical times Branch daily. SERTraline 0 Yes [id number] 200mg Take 2 Univers 100 mg 4-12 tablets by ity of tablet 00:00: mouth [place] 00 daily. Medical Branch buPROPion 0 Yes [id number] 150mg Take 1 U nivers XL 4-12 tablet by ity of (WELLBUTRIN 00:00: mouth [place] XL) 150 mg 00 daily. Medical 24 hr Branch tablet busPIRone Yes [id number] 30mg Take 1 Un matt 30 mg 4-12 tablet by ity of tablet 00:00: mouth 2 [place] 00 (two) Medical times Branch daily. SERTraline Yes [id number] 200mg Take 2 Univers 100 mg 4-12 tablets by ity of tablet 00:00: mouth [place] 00 daily. Medical Branch buPROPion Yes [id number] 150mg Take 1 U nivers XL 4-12 tablet by ity of (WELLBUTRIN 00:00: mouth [place] XL) 150 mg 00 daily. Medical 24 hr Branch tablet busPIRone Yes [id number] 30mg Take 1 Un matt 30 mg 4-12 tablet by ity of tablet 00:00: mouth 2 [place] 00 (two) Medical times Branch daily. SERTraline Yes [id number] 200mg Take 2 Univers 100 mg 4-12 tablets by ity of tablet 00:00: mouth [place] 00 daily. Medical Branch buPROPion 0 Yes [id number] 150mg Take 1 U nivers XL 4-12 tablet by ity of (WELLBUTRIN 00:00: mouth [place] XL) 150 mg 00 daily. Medical 24 hr Branch tablet busPIRone 0 Yes [id number] 30mg Take 1 Un matt 30 mg 4-12 tablet by ity of tablet 00:00: mouth 2 [place] 00 (two) Medical times Branch daily. SERTraline 0 Yes [id number] 200mg Take 2 Univers 100 mg 4-12 tablets by ity of tablet 00:00: mouth [place] 00 daily. Medical Branch buPROPion 0 Yes [id number] 150mg Take 1 U nivers XL 4-12 tablet by ity of (WELLBUTRIN 00:00: mouth [place] XL) 150 mg 00 daily. Medical 24 hr Branch tablet busPIRone 2021-0 Yes [id number] 30mg Take 1 Un matt 30 mg 4-12 tablet by ity of tablet 00:00: mouth 2 00 (two) Medical times Branch daily. SERTraline 2021-0 Yes [id number] 200mg Take 2 Univers 100 mg 4-12 tablets by ity of tablet 00:00: mouth [place] 00 daily. Medical Branch buPROPion 2021-0 Yes [id number] 150mg Take 1 U nivers XL 4-12 tablet by ity of (WELLBUTRIN 00:00: mouth [place] XL) 150 mg 00 daily. Medical 24 hr Branch tablet busPIRone 2021-0 Yes [id number] 30mg Take 1 Un matt 30 mg 4-12 tablet by ity of tablet 00:00: mouth 2 (two) Medical times Branch daily. SERTraline 2021-0 Yes [id number] 200mg Take 2 Univers 100 mg 4-12 tablets by ity of tablet 00:00: mouth [place] 00 daily. Medical Branch buPROPion 2021-0 Yes [id number] 150mg Take 1 U nivers XL 4-12 tablet by ity of (WELLBUTRIN 00:00: mouth [place] XL) 150 mg 00 daily. Medical 24 hr Branch tablet busPIRone 2021-0 Yes [id number] 30mg Take 1 Un matt 30 mg 4-12 tablet by ity of tablet 00:00: mouth 2 00 (two) Medical times Branch daily. SERTraline 2021-0 Yes [id number] 200mg Take 2 Univers 100 mg 4-12 tablets by ity of tablet 00:00: mouth [place] 00 daily. Medical Branch buPROPion 2021-0 Yes [id number] 150mg Take 1 U nivers XL 4-12 tablet by ity of (WELLBUTRIN 00:00: mouth [place] XL) 150 mg 00 daily. Medical 24 hr Branch tablet busPIRone 2021-0 Yes [id number] 30mg Take 1 Un matt 30 mg 4-12 tablet by ity of tablet 00:00: mouth 2 00 (two) Medical times Branch daily. SERTraline 2021-0 Yes [id number] 200mg Take 2 Univers 100 mg 4-12 tablets by ity of tablet 00:00: mouth [place] 00 daily. Medical Branch buPROPion 2021-0 Yes [id number] 150mg Take 1 U nivers XL 4-12 tablet by ity of (WELLBUTRIN 00:00: mouth [place] XL) 150 mg 00 daily. Medical 24 hr Branch tablet busPIRone 2021-0 Yes [id number] 30mg Take 1 Un matt 30 mg 4-12 tablet by ity of tablet 00:00: mouth 2 [place] 00 (two) Medical times Branch daily. SERTraline 2021-0 Yes [id number] 200mg Take 2 [facility] 100 mg 4-12 tablets by ity of tablet 00:00: mouth [place] 00 daily. Medical Branch buPROPion 2021-0 Yes [id number] 150mg Take 1 [facility] nivers XL 4-12 tablet by ity of (WELLBUTRIN 00:00: mouth [place] XL) 150 mg 00 daily. Medical 24 hr Branch tablet busPIRone 2021-0 Yes [id number] 30mg Take 1 Un matt 30 mg 4-12 tablet by ity of tablet 00:00: mouth 2 [place] 00 (two) Medical times Branch daily. SERTraline 2021-0 Yes [id number] 200mg Take 2 [facility] 100 mg 4-12 tablets by ity of tablet 00:00: mouth [place] 00 daily. Medical Branch raltegravir 2021-0 Yes [id number] 400mg Take 1 [facility] (ISENTRESS) 3-28 tablet by ity of 400 mg 00:00: mouth 2 [place] tablet 00 (two) Medical times Branch daily. raltegravir 2021-0 Yes [id number] 400mg Take 1 [facility] (ISENTRESS) 3-28 tablet by ity of 400 mg 00:00: mouth 2 [place] tablet 00 (two) Medical times Branch daily. raltegravir 2021-0 Yes [id number] 400mg Take 1 [facility] (ISENTRESS) 3-28 tablet by ity of 400 mg 00:00: mouth 2 [place] tablet 00 (two) Medical times Branch daily. raltegravir 2021-0 Yes [id number] 400mg Take 1 [facility] (ISENTRESS) 3-28 tablet by ity of 400 mg 00:00: mouth 2 [place] tablet 00 (two) Medical times Branch daily. raltegravir 2021-0 Yes [id number] 400mg Take 1 [facility] (ISENTRESS) 3-28 tablet by ity of 400 mg 00:00: mouth 2 [place] tablet 00 (two) Medical times Branch daily. raltegravir 2021-0 Yes [id number] 400mg Take 1 [facility] (ISENTRESS) 3-28 tablet by ity of 400 mg 00:00: mouth 2 [place] tablet 00 (two) Medical times Branch daily. raltegravir 2021-0 Yes [id number] 400mg Take 1 [facility] (ISENTRESS) 3-28 tablet by ity of 400 mg 00:00: mouth 2 [place] tablet 00 (two) Medical times Branch daily. raltegravir 2021-0 Yes [id number] 400mg Take 1 [facility] (ISENTRESS) 3-28 tablet by ity of 400 mg 00:00: mouth 2 [place] tablet 00 (two) Medical times Branch daily. raltegravir 2021-0 Yes [id number] 400mg Take 1 [facility] (ISENTRESS) 3-28 tablet by ity of 400 mg 00:00: mouth 2 [place] tablet 00 (two) Medical times Branch daily. raltegravir 2021-0 Yes [id number] 400mg Take 1 [facility] (ISENTRESS) 3-28 tablet by ity of 400 mg 00:00: mouth 2 [place] tablet 00 (two) Medical times Branch daily. raltegravir 2021-0 Yes [id number] 400mg Take 1 [facility] (ISENTRESS) 3-28 tablet by ity of 400 mg 00:00: mouth 2 [place] tablet 00 (two) Medical times Branch daily. LORazepam 1 2021- No [id number] 1mg Take 1 [facility] mg tablet 3-21 [...] times a tablet day. emtricitabi 2021- No [id number] Take one [facility] ne-tenofovi 1-20 09-12 po daily ity of r alafen 00:00: 00:00 [place] (DESCOVY) 00 :00 Medical tablet Branch metoprolol Yes [id number] Take 1 [facility] tartrate 7-26 tablet [facility] (Lopressor) 00:00: (100 mg 100 MG 00 total) by tablet mouth 2 (two) times a day AND 0.5 tablets (50 mg total) every night. metoprolol Yes [id number] Take 1 [facility] tartrate 7-26 tablet [facility] [...] (affected area in groin) hydrALAZINE Yes 50mg Q.[id number] Take 50 mg [facility] (APRESOLINE 7-19 [id number] mouth [facility] ) 50 MG [...] area in groin) hydrALAZINE 0 Yes 50mg Q.[id number] Take 50 mg [facility] (APRESOLINE 7-19 [id number] [facility] mouth [facility] ) 50 MG [...] (affected area in groin) hydrALAZINE Yes 50mg Q.[id number] Take 50 mg [facility] (APRESOLINE 7-19 [id number] [address] mouth 3 [facility] ) 50 MG [...] area in groin) hydrALAZINE 0 Yes 50mg Q.[id number] Take 50 mg [facility] (APRESOLINE 7-19 [id number] mouth 3 [facility] ) 50 MG [...] area in groin) hydrALAZINE 2020-0 Yes 50mg Q.[id number] Take 50 mg [facility] (APRESOLINE 7-19 [id number] mouth [facility] ) 50 MG [...] (affected area in groin) hydrALAZINE Yes 50mg Q.[id number] Take 50 mg [facility] (APRESOLINE 7-19 [id number] [address] mouth [facility] ) 50 MG [...] area in groin) hydrALAZINE 0 Yes 50mg Q.[id number] Take 50 mg [facility] (APRESOLINE 7-19 [id number] mouth [facility] ) 50 MG [...] area in groin) hydrALAZINE 0 Yes 50mg Q.[id number] Take 50 mg [facility] (APRESOLINE 7-19 [id number] mouth [facility] ) 50 MG [...] (affected area in groin) hydrALAZINE Yes 50mg Q.[id number] Take 50 mg [facility] (APRESOLINE 7-[id number] mouth [facility] ) 50 MG [...] (affected area in groin) hydrALAZINE Yes 50mg Q.[id number] Take 50 mg [facility] (APRESOLINE 7-[id number] mouth [facility] ) 50 MG [...] area in groin) hydrALAZINE 0 Yes 50mg Q.[id number] Take 50 mg [facility] (APRESOLINE 7-19 [id number] mouth [facility] ) 50 MG [...] area in groin) hydrALAZINE 0 Yes 50mg Q.[id number] Take 50 mg [facility] (APRESOLINE 7-[id number] mouth [address] ) 50 MG [...] (affected area in groin) hydrALAZINE Yes 50mg Q.[id number] Take 50 mg [facility] (APRESOLINE 7-19 [id number] mouth [facility] ) 50 MG [...] area in groin) hydrALAZINE 0 Yes 50mg Q.[id number] Take 50 mg [facility] (APRESOLINE 7-[id number] mouth [address] ) 50 MG [...] area in groin) hydrALAZINE 0 Yes 50mg Q.[id number] Take 50 mg [facility] (APRESOLINE 7-[id number] mouth [address] ) 50 MG [...] (affected area in groin) hydrALAZINE Yes 50mg Q.[id number] Take 50 mg [facility] (APRESOLINE 7-19 [id number] mouth 3 [address] ) 50 MG [...] area in groin) hydrALAZINE 0 Yes 50mg Q.[id number] Take 50 mg [facility] (APRESOLINE 7-[id number] mouth [address] ) 50 MG [...] area in groin) hydrALAZINE 0 Yes 50mg Q.[id number] Take 50 mg [facility] (APRESOLINE 7-[id number] mouth [address] ) 50 MG [...] (affected area in groin) hydrALAZINE Yes 50mg Q.[id number] Take 50 mg [facility] (APRESOLINE 7-19 [id number] mouth [facility] [address] ) 50 MG [...] area in groin) hydrALAZINE 0 Yes 50mg Q.[id number] Take 50 mg [facility] (APRESOLINE 7-[id number] mouth [address] ) 50 MG [...] area in groin) hydrALAZINE 0 Yes 50mg Q.[id number] Take 50 mg [facility] (APRESOLINE 7-[id number] mouth [address] ) 50 MG [...] (affected area in groin) hydrALAZINE Yes 50mg Q.[id number] Take 50 mg [facility] (APRESOLINE 7-[id number] mouth [address] ) 50 MG [...] (affected area in groin) hydrALAZINE Yes 50mg Q.[id number] Take 50 mg [facility] (APRESOLINE 7-[id number] mouth [facility] ) 50 MG [...] area in groin) hydrALAZINE 0 Yes 50mg Q.[id number] Take 50 mg [facility] (APRESOLINE 7-19 [id number] mouth [facility] ) 50 MG [...] area in groin) hydrALAZINE 0 Yes 50mg Q.[id number] Take 50 mg [facility] (APRESOLINE 7-[id number] mouth [facility] [address] ) 50 MG [...] 10:51: daily. [facility] tablet 25 l nystatin-tr 2021-0 Yes [id number] Apply to [facility] iamcinolone 7-06 area(s) 3 ity of cream 00:00: (three) [place] 00 times Medical daily. Branch nystatin-tr 2021-0 Yes [id number] Apply to [facility] iamcinolone 7-06 area(s) 3 ity of cream 00:00: (three) [place] 00 times Medical daily. Branch nystatin-tr 2021-0 Yes [id number] Apply to [facility] iamcinolone 7-06 area(s) 3 ity of cream 00:00: (three) [place] 00 times Medical daily. Branch nystatin-tr 2021-0 Yes [id number] Apply to [facility] iamcinolone 7-06 area(s) 3 ity of cream 00:00: (three) [place] 00 times Medical daily. Branch nystatin-tr 2021-0 Yes [id number] Apply to [facility] iamcinolone 7-06 area(s) 3 ity of cream 00:00: (three) [place] 00 times Medical daily. Branch nystatin-tr 2021-0 Yes [id number] Apply to [facility] iamcinolone 7-06 area(s) 3 ity of cream 00:00: (three) [place] 00 times Medical daily. Branch nystatin-tr 2021-0 Yes [id number] Apply to [facility] iamcinolone 7-06 area(s) 3 ity of cream 00:00: (three) [place] 00 times Medical daily. Branch nystatin-tr 2021-0 Yes [id number] Apply to [facility] iamcinolone 7-06 area(s) 3 ity of cream 00:00: (three) [place] 00 times Medical daily. Branch nystatin-tr 2021-0 Yes [id number] Apply to [facility] iamcinolone 7-06 area(s) 3 ity of cream 00:00: (three) [place] 00 times Medical daily. Branch nystatin-tr 2021-0 Yes [id number] Apply to [facility] iamcinolone 7-06 area(s) 3 ity of cream 00:00: (three) [place] 00 times Medical daily. Branch nystatin-tr 0 Yes [id number] [facility] [place] [facility] area[facility]s) 3 ity of cream 00:00: (three) [place] 00 times Medical daily. Branch budesonide- 2020-0 2021- No 1{puff} QD Inhale 1 [facility] formoteroL 6-25 06-[address] (SYMBICORT) 14:37: 00:00 morning. H ospita 160-4.5 02 :00 l mcg/actuati on inhaler hydrALAZINE 0 Yes [id number] 50mg Q.[id number] Take 1 [facility] (Apresoline 6-11 [id number] tablet (50 Health ) 50 MG 00:00: 3D mg total) tablet 00 by mouth 3 (three) times a day. hydrALAZINE Yes [id number] 50mg Q.[id number] Take 1 [facility] (Apresoline 6-11 [id number] tablet (50 Health ) 50 MG 00:00: [...] 2021- No 200mg 200 mg. [facility] (Zoloft) 10-19 Health 100 MG 00:00: 00:00 tablet 00 :00 mupirocin Yes [facility] (Bactroban) 10-17 Health 2 % 00:00: ointment 00 mupirocin 0 Yes [facility] (Bactroban) 10-17 Health 2 % 00:00: ointment 00 nystatin 2020- No [id number] Q.25D Take 5 mL [facility] (MYCOSTATIN 10-06 [...] tablet 05 Health 00:00: 00 Eliquis 5 Yes 5mg [...] e 4-10 Tablet l 14:00: should not [place] 00 be chewed or crushed. (Same as: Protonix) Amiodarone No Notes: Mem[facility] ia 4-10 (Same as: l 14:00: Cordarone) [place] Amlodipine No Notes: [facility] 4-10 (Same as: l 14:00: Norvasc) [place] emtricitabi No Notes: Caesar lisa ne 200 MG / 4-10 (Same as: l tenofovir 14:00: Descovy) Herm ariel alafenamide 00 Non-formul 25 MG Oral nancy Tablet [Descovy] Sertraline No Notes: Mem[facility] ia 4-10 (Same as: l 14:00: Zoloft) [place] pantoprazol No Notes: [place] lisa e 4-10 Tablet l 14:00: should not [place] 00 be chewed or crushed. (Same as: Protonix) Amiodarone No Notes: Memor ia 4-10 (Same as: l 14:00: Cordarone) [place] Amlodipine No Notes: Mem[facility] ia 4-10 (Same [...] e 4-10 Tablet l 14:00: should not [place] 00 be chewed or crushed. (Same as: Protonix) Amiodarone No Notes: Mem[facility] ia 4-10 (Same as: l 14:00: Cordarone) [place] 00 Amlodipine No Notes: [facility] ia 4-10 (Same as: l 14:00: Norvasc) [place] emtricitabi No Notes: Caesar lisa ne 200 MG / 4-10 (Same as: l tenofovir 14:00: Descovy) Herm ariel alafenamide 00 Non-formul 25 MG Oral nancy Tablet [Descovy] Sertraline No Notes: Mem[facility] ia 4-10 (Same as: l 14:00: Zoloft) [place] 00 pantoprazol No Notes: [place] lisa e 4-10 Tablet l 14:00: should not [place] 00 be chewed or crushed. (Same as: Protonix) Amiodarone No Notes: Mem[facility] ia 4-10 (Same as: l 14:00: Cordarone) [place] Amlodipine No Notes: [facility] ia 4-10 (Same as: l 14:00: Norvasc) [place] emtricitabi No Notes: Caesar lisa ne 200 MG / 4-10 (Same as: l tenofovir 14:00: Descovy) Herm ariel alafenamide 00 Non-formul 25 MG Oral nancy Tablet [Descovy] Sertraline No Notes: Mem[facility] ia 4-10 (Same as: l 14:00: Zoloft) [place] pantoprazol No Notes: [place] lisa e 4-10 Tablet l 14:00: should not [place] 00 be chewed or crushed. (Same as: Protonix) Amiodarone No Notes: Memor ia 4-10 (Same as: l 14:00: Cordarone) [place] 00 Amlodipine No Notes: [facility] ia 4-10 (Same as: l 14:00: Norvasc) [place] emtricitabi No Notes: Caesar lisa ne 200 MG / 4-10 (Same as: l tenofovir 14:00: Descovy) Herm ariel alafenamide 00 Non-formul 25 MG Oral nancy Tablet [Descovy] Sertraline No Notes: [facility] ia 4-10 (Same as: l 14:00: Zoloft) [place] 00 pantoprazol No Notes: [place] lisa e 4-10 Tablet l 14:00: should not [place] 00 be chewed or crushed. (Same as: Protonix) Amiodarone No Notes: [facility] ia 4-10 (Same as: l 14:00: Cordarone) [place] Sucralfate No Notes: May M emoria 4-10 [...] 0.9% 4-10 (Same as: l 02:00: BD [place] Posiflush) Eliquis No Notes: [facility] 4-10 Same as: l 02:00: Eliquis [place] Hydralazine No Notes: Caesar lisa Hydrochlori 4-10 (Same as: l de 50 MG 02:00: Apresoline Her mitchell Oral Tablet 00 ) May interfere w/enteral feedings Take With Food Sucralfate No Notes: May M emoria 4-10 interfere l 02:00: w/enteral [place] 00 feeds - Take 1 hr before [...] M emoria 4-10 interfere l 02:00: w/enteral [place] 00 feeds - Take 1 hr before or 2 hr after antacids, dairy pdt, meals & minerals - On empty stomach. For patients unable to swallow tablet, dissolve in 10mL - 30mL of water or juice and stir before giving. (Same As: Carafate) Saline No Notes: [facility] Flush 0.9% 4-10 (Same as: l 02:00: BD [place] 00 Posiflush) Eliquis No Notes: [facility] 4-10 [...] 0.9% 4-10 (Same as: l 02:00: BD [place] Posiflush) Eliquis No Notes: [facility] 4-10 Same as: l 02:00: Eliquis [place] 00 Hydralazine No Notes: Caesar lisa Hydrochlori 4-10 (Same as: l de 50 MG 02:00: Apresoline Her mitchell Oral Tablet 00 ) May interfere w/enteral feedings Take With Food Sucralfate No Notes: May M emoria 4-10 interfere l 02:00: w/enteral [place] 00 feeds - Take 1 hr before or 2 hr after antacids, dairy pdt, meals & minerals - On empty stomach. For patients unable to swallow tablet, dissolve in 10mL - 30mL of water or juice and stir before giving. (Same As: Carafate) Saline No Notes: [facility] Flush 0.9% 4-10 (Same as: l 02:00: BD [place] 00 Posiflush) Eliquis No Notes: [facility] 4-10 Same as: l 02:00: Eliquis [place] Hydralazine No Notes: Caesar lisa Hydrochlori 4-10 (Same as: l de 50 MG 02:00: Apresoline Her mitchell Oral Tablet 00 ) May interfere w/enteral feedings Take With Food Sucralfate No Notes: May M emoria 4-10 interfere l 02:00: w/enteral [place] 00 feeds - Take 1 hr before [...] Memoria 4-10 Same as: l 02:00: Eliquis [place] Hydralazine No Notes: [place] lisa Hydrochlori 4-10 (Same as: l de 50 MG 02:00: Apresoline Her mitchell Oral Tablet 00 ) May interfere w/enteral feedings Take With Food acetaminoph No Notes: Do M emoria en-codeine 4-10 not exceed l #3 00:12: 4gm/day of [place] acetaminop hen. (Same as: Tylenol with Codeine [...] oria 4-09 tab, l 22:00: Route: PO, [place] 00 Drug form: TAB, BID, Dosing Weight 97.273, kg, Start date: 08/29/20 17:00:00 CDT, Duration: 30 day, Stop date: 09/28/20 9:00:00 CDT metoprolol 1-0 No 100 mg, 1 Me moria tartrate 4-09 tab, l 22:00: Route: PO, [place] Drug form: TAB, BID, Dosing Weight 97.273, [...] tartrate 4-09 tab, l 22:00: Route: PO, [place] Drug form: TAB, BID, Dosing Weight 97.273, [...] oria 4-09 tab, l 22:00: Route: PO, [place] Drug form: TAB, BID, Dosing Weight 97.273, [...] oria 4-09 tab, l 22:00: Route: PO, [place] 00 Drug form: TAB, BID, Dosing Weight 97.273, kg, Start date: 08/29/20 17:00:00 CDT, Duration: 30 day, Stop date: 09/28/20 9:00:00 CDT metoprolol 2020-0 No 100 mg, 1 Me moria tartrate 4-09 tab, l 22:00: Route: PO, [place] Drug form: TAB, BID, Dosing Weight 97.273, [...] oria -09 tab, l 22:00: Route: PO, [place] 00 Drug form: TAB, BID, Dosing Weight [...] oria 4-09 tab, l 22:00: Route: PO, [place] Drug form: TAB, BID, Dosing Weight 97.273, [...] Notes: [facility] 4-09 (Same l 17:07: as:MORPhin [place] 00 e Sulfate) Morphine No Notes: [facility] 4-09 (Same l 17:07: as:MORPhin [place] 00 e Sulfate) Morphine 2020- No Notes: [facility] 4- (Same l 17:07: as:MORPhin [place] 00 e Sulfate) Morphine No Notes: [facility] 4- (Same l 17:07: as:MORPhin [place] 00 e Sulfate) Morphine 2020- No Notes: [facility] 4- (Same l 17:07: [...] tab, PO, l oral 15:27: Daily, # [place] enteric 00 30 tab, 0 coated Refill(s), tablet Pharmacy: [facility], 162.56, cm, 08/29/20 5:30:00 CDT, Height, 97.273, kg, 08/29/20 5:30:00 CDT, Weight pantoprazol 2020-0 Yes 40 mg = 1 M emoria e 40 mg 4-09 tab, PO, l oral 15:27: Daily, # [place] enteric 00 30 tab, 0 coated Refill(s), tablet Pharmacy: [facility] 149, 162.56, cm, 08/29/20 5:30:00 CDT, Height, 97.273, kg, 08/29/20 5:30:00 CDT, Weight pantoprazol 2020-0 Yes 40 mg = 1 M emoria e 40 mg 4-09 tab, PO, l oral 15:27: Daily, # [place] enteric 00 30 tab, 0 coated Refill(s), tablet Pharmacy: [facility] 149, 162.56, cm, 08/29/20 5:30:00 CDT, Height, 97.273, kg, 08/29/20 5:30:00 CDT, Weight pantoprazol 1-0 Yes 40 mg = 1 M emoria e 40 mg 4-09 tab, PO, l oral 15:27: Daily, # [place] enteric 00 30 tab, 0 coated Refill(s), tablet Pharmacy: [facility] 149, 162.56, cm, 08/29/20 5:30:00 CDT, Height, 97.273, kg, 08/29/20 5:30:00 CDT, Weight pantoprazol 1-0 Yes 40 mg = 1 M emoria e 40 mg 4-09 tab, PO, l oral 15:27: Daily, # [place] enteric 00 30 tab, 0 coated Refill(s), tablet Pharmacy: [facility] 149, 162.56, cm, 08/29/20 5:30:00 CDT, Height, 97.273, kg, 08/29/20 5:30:00 CDT, Weight pantoprazol 1-0 Yes 40 mg = 1 M emoria e 40 mg 4-09 tab, PO, l oral 15:27: Daily, # [place] enteric 00 30 tab, 0 coated Refill(s), tablet Pharmacy: [facility] 149, 162.56, cm, 08/29/20 5:30:00 CDT, Height, 97.273, kg, 08/29/20 5:30:00 CDT, Weight pantoprazol 1-0 Yes 40 mg = 1 M emoria e 40 mg 4-09 tab, PO, l oral 15:27: Daily, # [place] enteric 00 30 tab, 0 coated Refill(s), tablet Pharmacy: [facility] 149, 162.56, cm, 08/29/20 5:30:00 [...] Skylar nn 00 tab, 0 Refill(s), Pharmacy: [facility] 149, 162.56, cm, 08/29/20 5:30:00 [...] Skylar nn 00 tab, 0 Refill(s), Pharmacy: [facility] 149, 162.56, cm, 08/29/20 5:30:00 CDT, Height, 97.273, kg, 08/29/20 5:30:00 CDT, Weight pantoprazol 2020-0 No 40 mg = 1 M emoria e 40 mg 4-09 tab, PO, l oral 15:26: Daily, # [place] enteric 00 30 tab, 0 coated Refill(s) tablet sucralfate 2020-0 Yes 1 gm = 1 Mem oria 1 g oral 4-09 tab, PO, l tablet 15:26: Q12H, # 28 Skylar nn 00 tab, 0 Refill(s), Pharmacy: [place] [id number], 162.56, cm, 08/29/20 5:30:00 CDT, Height, 97.273, kg, 08/29/20 5:30:00 CDT, Weight pantoprazol 2020-0 No 40 mg = 1 M emoria e 40 mg 4-09 tab, PO, l oral 15:26: Daily, # [place] enteric 00 30 tab, 0 coated Refill(s) tablet sucralfate 2020-0 Yes 1 gm = 1 Mem oria 1 g oral 4-09 tab, PO, l tablet 15:26: Q12H, # 28 Skyl[place] nn 00 tab, 0 Refill(s), Pharmacy: [facility] 149, 162.56, cm, 08/29/20 5:30:00 CDT, Height, 97.273, kg, 08/29/20 5:30:00 CDT, Weight pantoprazol No 40 mg = 1 M emoria e 40 mg 4-09 tab, PO, l oral 15:26: Daily, # [place] enteric 00 30 tab, 0 coated Refill(s) tablet sucralfate Yes 1 gm = 1 Mem oria 1 g oral 4-09 tab, PO, l tablet 15:26: Q12H, # 28 Skyl[place] nn 00 tab, 0 Refill(s), Pharmacy: [facility] 149, 162.56, cm, 08/29/20 5:30:00 [...] Skylar nn 00 tab, 0 Refill(s), Pharmacy: [facility] 149, 162.56, cm, 08/29/20 5:30:00 [...] Skylar nn 00 tab, 0 Refill(s), Pharmacy: [facility] 149, 162.56, cm, 08/29/20 5:30:00 [...] 0.9% 4-09 (Same as: l 15:25: BD [place] 00 Posiflush) Saline No Notes: [facility] Flush 0.9% 4-09 (Same as: l 15:25: BD [place] 00 Posiflush) Lorazepam No Notes: Memori a 4-09 (Same as: l 15:25: Ativan) Lorazepam No Notes: Memori a 4-09 (Same as: l 15:25: Ativan) Saline No Notes: [facility] Flush 0.9% 4-09 (Same as: l 15:25: BD [place] 00 Posiflush) Lorazepam No Notes: Memori a [...] Drug form: l mg + 15:00: INJ, [place] Dosing Weight 97.3, kg, Start date: 08/29/20 10:00:00 CDT, Stop date: 08/29/20 11:00:00 CDT Isuprel HCl 2020-0 No Route: IV, Memoria (ANES) 0.2 08-29 Drug form: l mg + 15:00: INJ, Marty Dosing Weight 97.3, kg, Start date: 08/29/20 10:00:00 CDT, Stop date: 08/29/20 11:00:00 CDT Isuprel HCl 0 No Route: IV, [facility] (ANES) 0.2 08-29 Drug form: l mg + 15:00: INJ, [place] 00 Dosing Weight 97.3, kg, Start date: 08/29/20 10:00:00 CDT, Stop date: 08/29/20 11:00:00 CDT Isuprel HCl 0 No Route: IV, [facility] (ANES) 0.2 08-29 Drug form: l mg + 15:00: INJ, [place] 00 Dosing Weight 97.3, kg, Start date: 08/29/20 10:00:00 CDT, Stop date: 08/29/20 11:00:00 CDT Isuprel HCl 2020-0 No Route: IV, [facility] (ANES) 0.2 08-29 Drug form: l mg + 15:00: INJ, [place] 00 Dosing Weight 97.3, kg, Start date: 08/29/20 10:00:00 CDT, Stop date: 08/29/20 11:00:00 CDT Isuprel HCl 2020-0 No Route: IV, [facility] (ANES) 0.2 08-29 Drug form: l mg + 15:00: INJ, [place] 00 Dosing Weight 97.3, kg, Start date: 08/29/20 10:00:00 CDT, Stop date: 08/29/20 11:00:00 CDT heparin No Route: IV, Caesar lisa (ANES) 08-29 Drug form: l 14:49: INJ, ONCE, [place] Stop date: 08/29/20 9:49:00 CDT heparin 202-0 [...] 08-29 Drug form: l 14:18: INJ, ONCE, [place] 00 Stop date: 08/29/20 9:18:00 CDT Labetalol [...] lisa 08-29 Route: l 14:01: IVP, PRN, [place] 00 Dosing Weight 97.273, kg, PRN Benzodiaze [...] Memori a 08-29 Route: l 14:01: IVP, [place] 00 Q5Min, Dosing Weight 97.273, kg, PRN Elevated BP, Start date: 08/29/20 9:01:00 CDT, Duration: 5 doses or times, Stop date: Limited # of times Acetaminoph 2020-0 No 1,000 mg, M emoria en 08-29 Route: PO, l 14:01: Drug form: [place] 00 TAB, ONCE, Dosing Weight 97.273, kg, [...] lisa 08-29 Route: l 14:01: IVP, PRN, [place] 00 Dosing Weight 97.273, kg, PRN Benzodiaze pine Reversal, Initial dose, Start date: 08/29/20 9:01:00 CDT, Duration: 30 day, Stop date: 09/28/20 9:00:00 CDT Naloxone 1-0 No 0.4 mg, Memori a 08-29 Route: l 14:01: IVP, [place] 00 Q2MIN, Dosing Weight 97.273, kg, PRN [...] ia 08-29 Route: l 14:01: IVP, ONCE, [place] 00 Dosing Weight 97.273, kg, PRN Nausea & Vomiting, Start date: 08/29/20 9:01:00 CDT Labetalol 1-0 No 10 mg, Memori a 08-29 Route: l 14:01: IVP, [place] 00 Q5Min, Dosing Weight 97.273, kg, PRN [...] Memori a 08-29 Route: l 14:01: IVP, [place] 00 Q5Min, Dosing Weight 97.273, kg, PRN [...] lisa 08-29 Route: l 14:01: IVP, PRN, [place] 00 Dosing Weight 97.273, kg, PRN Benzodiaze pine Reversal, Initial dose, Start date: 08/29/20 9:01:00 CDT, Duration: 30 day, Stop date: 09/28/20 9:00:00 CDT Naloxone 1-0 No 0.4 mg, Memori a 08-29 Route: l 14:01: IVP, [place] 00 Q2MIN, Dosing Weight 97.273, kg, PRN Narcotic Reversal, Start date: 08/29/20 9:01:00 CDT, Duration: 8 doses or times, Stop date: Limited # of times Flumazenil 1-0 No 0.2 mg, Caesar lisa 08-29 Route: l 14:01: IVP, PRN, [place] Dosing Weight 97.273, kg, PRN Benzodiaze pine Reversal, Initial dose, Start date: 08/29/20 9:01:00 CDT, Duration: 30 day, Stop date: 09/28/20 9:00:00 CDT Ondansetron 2021-0 No 4 mg, Memor ia 08-29 Route: l 14:01: IVP, ONCE, [place] Dosing Weight 97.273, kg, PRN Nausea & Vomiting, Start date: 08/29/20 9:01:00 CDT Naloxone 1-0 No 0.4 mg, Memori a 08-29 Route: l 14:01: IVP, [place] 00 Q2MIN, Dosing Weight 97.273, kg, PRN [...] 2021-0 No 1,000 mg, M emoria en 09 Route: PO, l 14:01: Drug form: [place] 00 TAB, ONCE, Dosing Weight 97.273, kg, [...] oria ne 08-29 Route: l 14:01: IVP, [place] 00 Q5Min, Dosing Weight 97.273, kg, PRN Pain Score 7-10, Start date: 08/29/20 9:01:00 CDT, Duration: 4 doses or times, Stop date: Limited # of times Flumazenil 1-0 No 0.2 mg, Caesar lisa 08-29 Route: l 14:01: IVP, PRN, [place] 00 Dosing Weight 97.273, kg, PRN Benzodiaze pine Reversal, Initial dose, Start date: 08/29/20 9:01:00 CDT, Duration: 30 day, Stop date: 09/28/20 9:00:00 CDT Naloxone 1-0 No 0.4 mg, Memori a 08-29 Route: l 14:01: IVP, [place] 00 Q2MIN, Dosing Weight 97.273, kg, PRN Narcotic Reversal, Start date: 08/29/20 9:01:00 CDT, Duration: 8 doses or times, Stop date: Limited # of times Ondansetron 2021-0 No 4 mg, Memor ia 08-29 Route: l 14:01: IVP, ONCE, [place] 00 Dosing Weight 97.273, kg, PRN Nausea [...] 08-29 Route: PO, l 14:01: Drug form: [place] 00 TAB, ONCE, Dosing Weight 97.273, kg, [...] Memori a 08-29 Route: l 14:01: IVP, [place] 00 Q2MIN, Dosing Weight 97.273, kg, PRN [...] Marty Stop date: 08/29/20 8:52:00 CDT rocuronium 2020-0 [...] 08-29 Drug form: l 13:42: INJ, ONCE, [place] Stop date: 08/29/20 8:42:00 CDT fentaNYL No Route: IV, Mem oria (ANES) 08-29 Drug form: l 13:42: INJ, ONCE, [place] Stop date: 08/29/20 8:42:00 CDT fentaNYL No [...] Drug form: l 10 13:15: INJ, Start [place] microgram date: 08/29/20 8:15:00 CDT, Stop date: 08/29/20 9:15:00 CDT norepinephr 0 No Route: IV, Memoria ine (ANES) 08-29 Drug form: l 10 13:15: INJ, Start [place] microgram date: 08/29/20 8:15:00 CDT, Stop date: 08/29/20 9:15:00 CDT norepinephr 0 No Route: IV, Memoria ine (ANES) 08-29 Drug form: l 10 13:15: INJ, Start Marty microgram date: 08/29/20 8:15:00 CDT, Stop date: 08/29/20 9:15:00 CDT norepinephr 0 No Route: IV, Memoria ine (ANES) 08-29 Drug form: l 10 13:15: INJ, Start [place] microgram 00 date: 08/29/20 8:15:00 CDT, Stop date: 08/29/20 9:15:00 CDT norepinephr 2020-0 No Route: IV, Memoria ine (ANES) 4- Drug form: l 10 13:15: INJ, Start Marty microgram 00 date: 08/29/20 8:15:00 CDT, Stop date: 08/29/20 9:15:00 CDT norepinephr 2020-0 No Route: IV, Memoria ine (ANES) 4- Drug form: l 10 13:15: INJ, Start [place] microgram 00 date: 08/29/20 8:15:00 CDT, Stop date: 08/29/20 9:15:00 CDT norepinephr 2020-0 No Route: IV, Memoria ine (ANES) 4- Drug form: l 10 13:15: INJ, Start [place] microgram date: 08/29/20 8:15:00 CDT, Stop date: 08/29/20 9:15:00 CDT Sodium 2020-0 No Route: IV, Memor ia Chloride 4-09 Total l 0.9% IV 12:30: Volume: Marty (ANES) 1000 00 1,000, mL Start date: 08/29/20 7:30:00 CDT, Stop date: 08/29/20 8:30:00 CDT Sodium 2020-0 No Route: IV, [facility] Chloride 4-09 Total l 0.9% IV 12:30: Volume: [facility] (ANES) 1000 00 1,000, mL Start date: [...] 4-09 Total l 0.9% IV 12:30: Volume: [facility] (ANES) 1000 00 1,000, mL Start date: 08/29/20 7:30:00 CDT, Stop date: 08/29/20 8:30:00 CDT Sodium 2021-0 No Route: IV, [facility] Chloride 4-09 Total l 0.9% IV 12:30: Volume: Marty (ANES) 1000 00 1,000, mL Start date: 08/29/20 7:30:00 CDT, Stop date: 08/29/20 8:30:00 CDT Sodium 1-0 No Route: IV, [facility] Chloride 4-09 Total l 0.9% IV 12:30: Volume: [facility] (ANES) 1000 00 1,000, mL Start date: [...] PO, l Hydrochlori 11:42: Q24H, # 30 Luxora de 150 MG 00 tab, 0 Extended [...] PO, l Hydrochlori 11:42: Q24H, # 30 [facility] de 150 MG 00 tab, 0 Extended [...] PO, l Hydrochlori 11:42: Q24H, # 30 [facility] de 150 MG 00 tab, 0 Extended Refill(s) Release Tablet apixaban Yes 5 mg, PO, Me moria MG Oral 4-09 Q12H, tab, l Tablet 11:41: 0 Marty [Eliquis] 00 Refill(s), For Atrial Fibrilatio n apixaban 5 2021-0 Yes 5 mg, PO, Me moria MG Oral 08-29 Q12H, tab, l Tablet 11:41: 0 [facility] [Eliquis] 00 Refill(s), For Atrial Fibrilatio n [...] 08-29 Q12H, tab, l Tablet 11:41: 0 [facility] [Eliquis] 00 Refill(s), For Atrial Fibrilatio n [...] tab, PO, l tablet 11:38: Daily, # [place] 00 90 tab, 3 Refill(s) AMIODarone 2020-0 Yes 200 mg = 1 M emoria 200 mg oral - tab, PO, l tablet 11:38: Daily, # Marty 00 90 tab, 3 Refill(s) AMIODarone 2020-0 Yes 200 mg = 1 M emoria 200 mg oral 4-09 tab, PO, l tablet 11:38: Daily, # [place] 00 90 tab, 3 Refill(s) AMIODarone 2020-0 Yes 200 mg = 1 M emoria 200 mg oral 4-09 tab, PO, l tablet 11:38: Daily, # Marty 00 90 tab, 3 Refill(s) AMIODarone 2020-0 Yes 200 mg = 1 M emoria 200 mg oral 4-09 tab, PO, l tablet 11:38: Daily, # [place] 00 90 tab, 3 Refill(s) normal 0 [...] tablet 08-16 00:00: [facility] Eliquis 5 2020- Yes Methodi mg [...] [place]cov[place]-Ten[place] 1-21 200 mg-25 [facility] r AF 00:00: mg tablet (Descovy) 00 200-25 MG tablet Emtricitabi 2018-05 Yes [place] [facility] 1-21 200 mg-25 [facility] r AF 00:00: mg tablet (Descovy) 00 [...] [facility] 00 (two[facility] [address] Yes 400mg Q.5D Take 400 Met [...] Immunizations Ordered Filled Immunization Date Status Comments [facility] Immunization Name Name SARS-COV-2 COVID-19 2022-03-05 [...] [facility] 65+ PFIZER COVID-19 2020-07-23 Completed [facility] VACCINATION 00:00:00 [facility] PFIZER COVID-19 2020-07-23 Completed [facility] VACCINATION 00:00:00 [facility] PFIZER COVID-19 2020-07-23 Completed [facility] VACCINATION 00:00:00 [facility] PFIZER COVID-19 2020-07-23 Completed [facility] VACCINATION 00:00:00 [facility] PFIZER COVID-19 2020-07-23 Completed [facility] VACCINATION 00:00:00 [facility] PFIZER COVID-19 2020-07-23 Completed [facility] VACCINATION 00:00:00 [facility] PFIZER COVID-19 2020-07-23 Completed [facility] VACCINATION 00:00:00 [facility] PFIZER COVID-19 2020-07-23 Completed [facility] VACCINATION 00:00:00 [facility] PFIZER COVID-19 2020-07-23 Completed [facility] VACCINATION 00:00:00 [facility] PFIZER COVID-19 2020-07-23 Completed [facility] VACCINATION 00:00:00 [facility] PFIZER COVID-19 2020-07-23 Completed [facility] VACCINATION 00:00:00 [facility] PFIZER COVID-19 2020-07-23 Completed [facility] VACCINATION 00:00:00 [facility] PFIZER COVID-19 2020-07-23 Completed [facility] VACCINATION 00:00:00 [facility] PFIZER COVID-19 2020-07-23 Completed [facility] VACCINATION 00:00:00 [facility] PFIZER COVID-19 2020-07-23 Completed [facility] VACCINATION 00:00:00 [facility] PFIZER COVID-19 2020-07-23 Completed [facility] VACCINATION 00:00:00 [facility] PFIZER COVID-19 2020-07-23 Completed [facility] VACCINATION 00:00:00 [facility] PFIZER COVID-19 2020-07-23 Completed [facility] VACCINATION 00:00:00 [facility] PFIZER COVID-19 2020-07-23 Completed [facility] VACCINATION 00:00:00 [facility] PFIZER COVID-19 2020-07-23 Completed [facility] VACCINATION 00:00:00 [facility] PFIZER COVID-19 2020-07-23 Completed [facility] VACCINATION 00:00:00 [facility] PFIZER COVID-19 2020-07-23 Completed [facility] VACCINATION 00:00:00 [facility] PFIZER COVID-19 2020-07-23 Completed [facility] VACCINATION 00:00:00 [facility] PFIZER COVID-19 2020-07-23 Completed [facility] VACCINATION 00:00:00 [facility] SARS-COV-2 COVID-19 2020-07-23 Completed [facility] PFIZER VACCINE 00:00:00 [facility] SARS-COV-2 COVID-19 2020-07-23 Completed [facility] of PFIZER VACCINE 00:00:00 [facility] SARS-COV-2 COVID-19 2020-07-23 Completed [facility] of PFIZER VACCINE 00:00:00 [facility] SARS-COV-2 COVID-19 2020-07-23 Completed [facility] of PFIZER VACCINE 00:00:00 [facility] SARS-COV-2 COVID-19 2020-07-23 Completed [facility] of PFIZER VACCINE 00:00:00 [facility] SARS-COV-2 COVID-19 2020-07-23 Completed [facility] of PFIZER VACCINE 00:00:00 [facility] SARS-COV-2 COVID-19 2020-07-23 Completed [facility] of PFIZER VACCINE 00:00:00 [facility] PFIZER COVID-19 2020-07-23 Completed [facility] VACCINATION 00:00:00 [facility] PFIZER COVID-19 2020-07-02 Completed [facility] VACCINATION 00:00:00 [facility] PFIZER COVID-19 2020-07-02 Completed [facility] VACCINATION 00:00:00 [facility] PFIZER COVID-19 2020-07-02 Completed [facility] VACCINATION 00:00:00 [facility] PFIZER COVID-19 2020-07-02 Completed [facility] VACCINATION 00:00:00 [facility] PFIZER COVID-19 2020-07-02 Completed [facility] VACCINATION 00:00:00 [facility] PFIZER COVID-19 2020-07-02 Completed [facility] VACCINATION 00:00:00 [facility] PFIZER COVID-19 2020-07-02 Completed [facility] VACCINATION 00:00:00 [facility] PFIZER COVID-19 2020-07-02 Completed [facility] VACCINATION 00:00:00 [facility] PFIZER COVID-19 2020-07-02 Completed [facility] VACCINATION 00:00:00 [facility] PFIZER COVID-19 2020-07-02 Completed [facility]ACC[facility] 00:00:00 [facility] PFIZER COVID-19 2020-07-02 Completed [facility] VACCINATION 00:00:00 [facility] PFIZER COVID-19 2020-07-02 Completed [facility] VACCINATION 00:00:00 [facility] PFIZER COVID-19 2020-07-02 Completed [facility] VACCINATION 00:00:00 [facility] PFIZER COVID-19 2020-07-02 Completed [facility] VACCINATION 00:00:00 [facility] PFIZER COVID-19 2020-07-02 Completed [facility] VACCINATION 00:00:00 [facility] PFIZER COVID-19 2020-07-02 Completed [facility] VACCINATION 00:00:00 [facility] PFIZER COVID-19 2020-07-02 Completed [facility] VACCINATION 00:00:00 [facility] PFIZER COVID-19 2020-07-02 Completed [facility] VACCINATION 00:00:00 [facility] PFIZER COVID-19 2020-07-02 Completed [facility] VACCINATION 00:00:00 [facility] PFIZER COVID-19 2020-07-02 Completed [facility] VACCINATION 00:00:00 [facility] PFIZER COVID-19 2020-07-02 Completed [facility] VACCINATION 00:00:00 [facility] PFIZER COVID-19 2020-07-02 Completed [facility] VACCINATION 00:00:00 [facility] PFIZER COVID-19 2020-07-02 Completed [facility] VACCINATION 00:00:00 [facility] PFIZER COVID-19 2020-07-02 Completed [facility] VACCINATION 00:00:00 [facility] SARS-COV-2 COVID-19 2020-07-02 Completed [facility] of PFIZER VACCINE 00:00:00 [facility] SARS-COV-2 COVID-19 2020-07-02 Completed [facility] of PFIZER VACCINE 00:00:00 [facility] SARS-COV-2 COVID-19 2020-07-02 Completed [facility] of PFIZER VACCINE 00:00:00 [facility] SARS-COV-2 COVID-19 2020-07-02 Completed [facility] of PFIZER VACCINE 00:00:00 [facility] SARS-COV-2 COVID-19 2020-07-02 Completed [facility] of PFIZER VACCINE 00:00:00 [facility] SARS-COV-2 COVID-19 2020-07-02 Completed [facility] of PFIZER VACCINE 00:00:00 [facility] SARS-COV-2 COVID-19 2020-07-02 Completed [facility] of PFIZER VACCINE 00:00:00 [facility] PFIZER COVID-19 2020-07-02 Completed [facility] VACCINATION 00:00:00 [facility] Influenza Virus 2017-03-08 Completed [facility] Vaccine 00:00:00 [facility] Influenza Virus 2017-03-08 Completed [facility] Vaccine 00:00:00 [facility] Influenza Virus 2017-03-08 Completed [facility] Vaccine 00:00:00 [facility] Influenza Virus 2017-03-08 Completed [facility] Vaccine 00:00:00 [facility] Influenza Virus 2017-03-08 Completed [facility] Vaccine 00:00:00 [facility] Influenza Virus 2017-03-08 Completed [facility] of Vaccine 00:00:00 [facility] Influenza Virus 2017-03-08 Completed [facility] Vaccine 00:00:00 [facility] Influenza Virus 2017-03-08 Completed [facility] of Vaccine 00:00:00 [facility] Influenza Virus 2017-03-08 Completed [facility] of Vaccine 00:00:00 [facility] Influenza Virus 2017-03-08 Completed [facility] Vaccine 00:00:00 [facility] Influenza Virus 2017-03-08 Completed [facility] Vaccine 00:00:00 [facility] Influenza Virus 2014-01-30 Completed [facility] Vacc[facility] (3+ yrs) [facility] 2014-01-30 Completed [facility] of Conjugate, PCV13 00:00:00 [facility] dical (Prevnar 13) Branch Influenza Virus 2014-01-30 Completed [facility] Vaccine (3+ yrs) 00:00[facility] P[facility] 13 2014-01-30 Completed [facility] of Conjugate, PCV13 00:00:00 [facility] dical (Prevnar 13) Branch Influenza Virus 2014-01-30 Completed [facility] Vaccine (3+ yrs) 00:00[facility] Pneum[facility] 13 2014-01-30 Completed [facility] of Conjugate, PCV13 00:00:00 [facility] dical (Prevnar 13) Branch Influenza Virus 2014-01-30 Completed [facility] Vaccine (3+ yrs) 00:00[facility] Pneum[facility] 13 2014-01-30 Completed [facility] of Conjugate, PCV13 00:00:00 [facility] dical (Prevnar 13) Branch Influenza Virus 2014-01-30 Completed [facility] Vaccine (3+ yrs) 00:00[facility] Pneumococcal 13 2014-01-30 Completed [facility] of Conjugate, PCV13 00:00:00 [facility] dical (Prevnar 13) Branch Influenza Virus 2014-01-30 Completed [facility] Vaccine (3+ yrs) 00:00[facility] Pneumococcal 13 2014-01-30 Completed [facility] of Conjugate, PCV13 00:00:00 [facility] dical (Prevnar 13) Branch Influenza Virus 2014-01-30 Completed [facility] y of Vaccine (3+ yrs) 00:00:00 [facility] Branch Pneumococcal 13 2014-01-30 Completed [facility] y of Conjugate, PCV13 00:00:00 [facility] dical (Prevnar 13) Branch Influenza Virus 2014-01-30 Completed [facility] of Vaccine (3+ yrs) 00:00:00 [facility] Branch Pneumococcal 13 2014-01-30 Completed [facility] y of Conjugate, PCV13 00:00:00 [facility] dical (Prevnar 13) Branch Influenza Virus 2014-01-30 Completed [facility] of Vaccine (3+ yrs) 00:00:00 [facility] Branch Pneumococcal 13 2014-01-30 Completed [facility] y of Conjugate, PCV13 00:00:00 [facility] dical (Prevnar 13) Branch Influenza Virus 2014-01-30 Completed [facility] of Vaccine (3+ yrs) 00:00:00 [facility] Branch Pneumococcal 13 2014-01-30 Completed [facility] y of Conjugate, PCV13 00:00:00 [facility] dical (Prevnar 13) Branch Influenza Virus 2014-01-30 Completed [facility] of Vaccine (3+ yrs) 00:00:00 [facility] Branch Pneumococcal 13 2014-01-30 Completed [facility] y of Conjugate, PCV13 00:00:00 [facility] dical (Prevnar 13) Branch Pneumococcal 2012-02-16 Completed University o f Polysaccharide, 00:00:00 [facility] ical PPSV23 (PNEUMOVAX) Branch Influenza Virus 2012-02-16 Completed [facility] of Vaccine 00:00:00 [facility] PPD (TB) 2012-02-16 Completed [facility] of 00:00:00 [facility] Pneumococcal 2012-02-16 Completed University o f Polysaccharide, 00:00:00 [facility] ical PPSV23 (PNEUMOVAX) Branch Influenza Virus 2012-02-16 Completed [facility] of Vaccine 00:00:00 [facility] PPD (TB) 2012-02-16 Completed [facility] of 00:00:00 [facility] Pneumococcal 2012-02-16 Completed University o f Polysaccharide, 00:00:00 [facility] ical PPSV23 (PNEUMOVAX) Branch Influenza Virus 2012-02-16 Completed [facility] of Vaccine 00:00:00 [facility] PPD (TB) 2012-02-16 Completed [facility] of 00:00:00 [facility] Pneumococcal 2012-02-16 Completed [facility] o f Polysaccharide, 00:00:00 [facility] PPSV23 (PNEUMOVAX) Branch Influenza Virus 2012-02-16 Completed [facility] of Vaccine 00:00:00 [facility] PPD (TB) 2012-02-16 Completed [facility] of 00:00:00 [facility] Pneumococcal 2012-02-16 Completed [facility] o f Polysaccharide, 00:00:00 [facility] PPSV23 (PNEUMOVAX) Branch Influenza Virus 2012-02-16 Completed [facility] of Vaccine 00:00:00 [facility] PPD (TB) 2012-02-16 Completed [facility] of 00:00:00 [facility] Pneumococcal 2012-02-16 Completed [facility] o f Polysaccharide, 00:00:00 [facility] PPSV23 (PNEUMOVAX) Branch Influenza Virus 2012-02-16 Completed [facility] of Vaccine 00:00:00 [facility] PPD (TB) 2012-02-16 Completed [facility] of 00:00:00 [facility] Pneumococcal 2012-02-16 Completed [facility] o f Polysaccharide, 00:00:00 [facility] PPSV23 (PNEUMOVAX) Branch Influenza Virus 2012-02-16 Completed [facility] of Vaccine 00:00:00 [facility] PPD (TB) 2012-02-16 Completed [facility] of 00:00:00 [facility] Pneumococcal 2012-02-16 Completed [facility] o f Polysaccharide, 00:00:00 [facility] PPSV23 (PNEUMOVAX) Branch Influenza Virus 2012-02-16 Completed [facility] of Vaccine 00:00:00 [facility] PPD (TB) 2012-02-16 Completed [facility] of 00:00:00 [facility] Pneumococcal 2012-02-16 Completed [facility] o f Polysaccharide, 00:00:00 [facility] PPSV23 (PNEUMOVAX) Branch Influenza Virus 2012-02-16 Completed [facility] of Vaccine 00:00:00 [facility] PPD (TB) 2012-02-16 Completed [facility] of 00:00:00 [facility] Pneumococcal 2012-02-16 Completed [facility] o f Polysaccharide, 00:00:00 [facility] PPSV23 (PNEUMOVAX) Branch Influenza Virus 2012-02-16 Completed [facility] of Vaccine 00:00:00 [facility] PPD (TB) 2012-02-16 Completed [facility] of 00:00:00 [facility] Pneumococcal 2012-02-16 Completed [facility] o f Polysaccharide, 00:00:00 [facility] PPSV23 (PNEUMOVAX) Branch Influenza Virus 2012-02-16 Completed [facility] y of Vaccine 00:00:00 [facility] PPD (TB) 2012-02-16 Completed [facility] of 00:00:00 [facility] Hep B, Adol or Pedi 2011-09-01 Completed Unive rsity of Dosage 00:00:00 [facility] Hep B, Adol or Pedi 2011-09-01 Completed [facility]ive [facility]ity of Dosage 00:00:00 [facility] Hep B, Adol or Pedi 2011-09-01 Completed [facility] of Dosage 00:00:00 [facility] Hep B, Adol or Pedi 2011-09-01 Completed [facility] of Dosage 00:00:00 [facility] Hep B, Adol or Pedi 2011-09-01 Completed [facility] of Dosage 00:00:00 [facility] Hep B, Adol or Pedi 2011-09-01 Completed [facility] of Dosage 00:00:00 [facility] Hep B, Adol or Pedi 2011-09-01 Completed [facility] of Dosage 00:00:00 [facility] Hep B, Adol or Pedi 2011-09-01 Completed [facility] of Dosage 00:00:00 [facility] Hep B, Adol or Pedi 2011-09-01 Completed [facility] of Dosage 00:00:00 [facility] Hep B, Adol or Pedi 2011-09-01 Completed [facility] of Dosage 00:00:00 [facility] Hep B, Adol or Pedi 2011-09-01 Completed [facility] of Dosage 00:00:00 [facility] Hep B, Adol or Pedi 2011-03-17 Completed [facility] of Dosage 00:00:00 [facility] Hep B, Adol or Pedi 2011-03-17 Completed [facility] of Dosage 00:00:00 [facility] Hep B, Adol or Pedi 2011-03-17 Completed [facility] of Dosage 00:00:00 [facility] Hep B, Adol or Pedi 2011-03-17 Completed [facility] of Dosage 00:00:00 [facility] Hep B, Adol or Pedi 2011-03-17 Completed [facility] of Dosage 00:00:00 [facility] Hep B, Adol or Pedi 2011-03-17 Completed [facility] of Dosage 00:00:00 [facility] Hep B, Adol or Pedi 2011-03-17 Completed [facility] of Dosage 00:00:00 [facility] Hep B, Adol or Pedi 2011-03-17 Completed [facility] of Dosage 00:00:00 [facility] Hep B, Adol or Pedi 2011-03-17 Completed [facility] of Dosage 00:00:00 [facility] Hep B, Adol or Pedi 2011-03-17 Completed [facility] of Dosage 00:00:00 [facility] Hep B, Adol or Pedi 2011-03-17 Completed [facility] of Dosage 00:00:00 [facility] Influenza Virus 2011-02-10 Completed [facility] Vaccine 00:00:00 [facility] Hep B, Adol or Pedi 2011-02-10 Completed [facility] of Dosage 00:00:00 [facility] Influenza Virus 2011-02-10 Completed [facility] Vaccine 00:00:00 [facility] Hep B, Adol or Pedi 2011-02-10 Completed [facility] of Dosage 00:00:00 [facility] Influenza Virus 2011-02-10 Completed [facility] Vaccine 00:00:00 [facility] Hep B, Adol or Pedi 2011-02-10 Completed [facility] of Dosage 00:00:00 [facility] Influenza Virus 2011-02-10 Completed [facility] Vaccine 00:00:00 [facility] Hep B, Adol or Pedi 2011-02-10 Completed [facility] of Dosage 00:00:00 [facility] Influenza Virus 2011-02-10 Completed [facility] of Vaccine 00:00:00 [facility] Hep B, Adol or Pedi 2011-02-10 Completed [facility] of Dosage 00:00:00 [facility] Influenza Virus 2011-02-10 Completed [facility] of Vaccine 00:00:00 [facility] Hep B, Adol or Pedi 2011-02-10 Completed [facility] of Dosage 00:00:00 [facility] Influenza Virus 2011-02-10 Completed [facility] of Vaccine 00:00:00 [facility] Hep B, Adol or Pedi 2011-02-10 Completed [facility] of Dosage 00:00:00 [facility] Influenza Virus 2011-02-10 Completed [facility] of Vaccine 00:00:00 [facility] Hep B, Adol or Pedi 2011-02-10 Completed [facility] of Dosage 00:00:00 [facility] Influenza Virus 2011-02-10 Completed [facility] Vaccine 00:00:00 [facility] Hep B, Adol or Pedi 2011-02-10 Completed [facility] of Dosage 00:00:00 [facility] Influenza Virus 2011-02-10 Completed [facility] of Vaccine 00:00:00 [facility] Hep B, Adol or Pedi 2011-02-10 Completed [facility] of Dosage 00:00:00 [facility] Influenza Virus 2011-02-10 Completed [facility] of Vaccine 00:00:00 [facility] Hep B, Adol or Pedi 2011-02-10 Completed [facility] of Dosage 00:00:00 [facility] PPD (TB) 2010-11-18 Completed [facility] of 00:00:00 [facility] TDAP (ADACEL) 2010-11-18 Completed University of VACCINE 00:00:00 [facility] PPD (TB) 2010-11-18 Completed [facility] of 00:00:00 [facility] TDAP (ADACEL) 2010-11-18 Completed University of VACCINE 00:00:00 [facility] PPD (TB) 2010-11-18 Completed [facility] of 00:00:00 [facility] TDAP (ADACEL) 2010-11-18 Completed University of VACCINE 00:00:00 [facility] PPD (TB) 2010-11-18 Completed [facility] of 00:00:00 [facility] TDAP (ADACEL) 2010-11-18 Completed University of VACCINE 00:00:00 [facility] PPD (TB) 2010-11-18 Completed [facility] of 00:00:00 [facility] TDAP (ADACEL) 2010-11-18 Completed University of VACCINE 00:00:00 [facility] PPD (TB) 2010-11-18 Completed [facility] of 00:00:00 [facility] TDAP (ADACEL) 2010-11-18 Completed University of VACCINE 00:00:00 [facility] PPD (TB) 2010-11-18 Completed [facility] of 00:00:00 [facility] TDAP (ADACEL) 2010-11-18 Completed University of VACCINE 00:00:00 [facility] PPD (TB) 2010-11-18 Completed [facility] of 00:00:00 [facility] TDAP (ADACEL) 2010-11-18 Completed [facility] of VACCINE 00:00:00 [facility] PPD (TB) 2010-11-18 Completed [facility] of 00:00:00 [facility] TDAP (ADACEL) 2010-11-18 Completed [facility] of VACCINE 00:00:00 [facility] PPD (TB) 2010-11-18 Completed [facility] of 00:00:00 [facility] TDAP (ADACEL) 2010-11-18 Completed [facility] of VACCINE 00:00:00 [facility] PPD (TB) 2010-11-18 Completed [facility] of 00:00:00 [facility] TDAP (ADACEL) 2010-11-18 Completed [facility] of VACCINE 00:00:00 [facility] HEPATITIS A 2004-03-02 Completed [facility] of 00:00:00 [facility] HEPATITIS A 2004-03-02 Completed [facility] of 00:00:00 [facility] HEPATITIS A 2004-03-02 Completed [facility] of 00:00:00 [facility] HEPATITIS A 2004-03-02 Completed [facility] of 00:00:00 [facility] HEPATITIS A 2004-03-02 Completed [facility] of 00:00:00 [facility] HEPATITIS A 2004-03-02 Completed [facility] of 00:00:00 [facility] HEPATITIS A 2004-03-02 Completed [facility] of 00:00:00 [facility] HEPATITIS A 2004-03-02 Completed [facility] of 00:00:00 [facility] HEPATITIS A 2004-03-02 Completed [facility] 00:00:00 [facility] HEPATITIS A 2004-03-02 Completed [facility] 00:00:00 [facility] HEPATITIS A 2004-03-02 Completed [facility] 00:00:00 [facility] HEPATITIS A 2003-08-01 Completed [facility] 00:00:00 [facility] HEPATITIS A 2003-08-01 Completed [facility] 00:00:00 [facility] HEPATITIS A 2003-08-01 Completed [facility] 00:00:00 [facility] HEPATITIS A 2003-08-01 Completed [facility] 00:00:00 [facility] HEPATITIS A 2003-08-01 Completed [facility] 00:00:00 [facility] HEPATITIS A 2003-08-01 Completed [facility] 00:00:00 [facility] HEPATITIS A 2003-08-01 Completed [facility] 00:00:00 [facility] HEPATITIS A 2003-08-01 Completed [facility] 00:00:00 [facility] HEPATITIS A 2003-08-01 Completed [facility] 00:00:00 [facility] HEPATITIS A 2003-08-01 Completed [facility] 00:00:00 [facility] HEPATITIS A 2003-08-01 Completed [facility] 00:00:00 [facility] Pneumococcal 2001-10-04 Completed University o f Polysaccharide, 00:00:00 [place] [facility] PPSV23 (PNEUMOVAX) Branch PPD (TB) 2001-10-04 Completed [facility] 00:00:00 [facility] Pneumococcal 2001-10-04 Completed University o f Polysaccharide, 00:00:00 [place] [facility] PPSV23 (PNEUMOVAX) Branch PPD (TB) 2001-10-04 Completed [facility] 00:00:00 [facility] Pneumococcal 2001-10-04 Completed University o f Polysaccharide, 00:00:00 [place] [facility] PPSV23 (PNEUMOVAX) Branch PPD (TB) 2001-10-04 Completed [facility] 00:00:00 [facility] Pneumococcal 2001-10-04 Completed University o f Polysaccharide, 00:00:00 [place] [facility] PPSV23 (PNEUMOVAX) Branch PPD (TB) 2001-10-04 Completed [facility] 00:00:00 [facility] Pneumococcal 2001-10-04 Completed University o f Polysaccharide, 00:00:00 [place] [facility] PPSV23 (PNEUMOVAX) Branch PPD (TB) 2001-10-04 Completed [facility] 00:00:00 [facility] Pneumococcal 2001-10-04 Completed University o f Polysaccharide, 00:00:00 [place] [facility] PPSV23 (PNEUMOVAX) Branch PPD (TB) 2001-10-04 Completed [facility] 00:00:00 [facility] Pneumococcal 2001-10-04 Completed [facility] o f Polysaccharide, 00:00:00 [place] [facility] PPSV23 (PNEUMOVAX) Branch PPD (TB) 2001-10-04 Completed [facility] 00:00:00 [facility] Pneumococcal 2001-10-04 Completed University o f Polysaccharide, 00:00:00 [place] [facility] PPSV23 (PNEUMOVAX) Branch PPD (TB) 2001-10-04 Completed [facility] 00:00:00 [facility] Pneumococcal 2001-10-04 Completed University o f Polysaccharide, 00:00:00 [place] [facility] PPSV23 (PNEUMOVAX) Branch PPD (TB) 2001-10-04 Completed [facility] 00:00:00 [facility] Pneumococcal 2001-10-04 Completed [place] Polysaccharide, 00:00:00 [place] [facility] PPSV23 (PNEUMOVAX) Branch PPD (TB) 2001-10-04 Completed [facility] 00:00:00 [facility] Pneumococcal 2001-10-04 Completed [place] Polysaccharide, 00:00:00 [place] [facility] PPSV23 (PNEUMOVAX) Branch PPD (TB) 2001-10-04 Completed [facility] 00:00:00 [facility] Vital Signs Vital Name Observation Time Observation Value Comments Source Systolic blood 2022-04-22 19:50:00 156 mm[Hg] [facility] Diastolic blood 2022-04-22 19:50:00 89 mm[Hg] [facility] Heart rate 2022-04-22 19:50:00 69 /min [facility] Body temperature 2022-04-22 19:50:00 36.67 Amina [facility] Respiratory rate 2022-04-22 19:50:00 17 /min [facility] Body height 2022-04-22 19:50:00 162.6 cm [facility] Body weight 2022-04-22 19:50:00 80.74 kg [facility] BMI 2022-04-22 19:50:00 30.55 kg/m2 [facility] Oxygen saturation in 2022-04-22 19:50:00 96 /min [facility] Arterial blood by [facility] Pulse oximetry Branch Systolic blood 2022-03-05 15:23:00 167 mm[Hg] [facility] Diastolic blood 2022-03-05 15:23:00 105 mm[Hg] [facility] Heart rate 2022-03-05 15:23:00 49 /min [facility] Body temperature 2022-03-05 15:18:00 36.67 Amina [facility] Respiratory rate 2022-03-05 15:18:00 18 /min [facility] Body height 2022-03-05 15:18:00 162.6 cm [facility] [place] [facility] Body weight 2022-03-05 15:18:00 74.707 kg [facility] [place] [facility] BMI 2022-03-05 15:18:00 28.27 kg/m2 [facility] [place] [facility] Systolic blood 2022-02-16 21:41:00 169 mm[Hg] Univer [facility]ity of pressure [facility] Diastolic blood 2022-02-16 21:41:00 86 mm[Hg] Unive rsity of pressure [facility] Heart rate 2022-02-16 21:41:00 51 /min [facility] [place] [facility] Body temperature 2022-02-16 21:41:00 36.56 Amina [facility] [place] [facility] Respiratory rate 2022-02-16 21:41:00 17 /min [facility] [place] [facility] Oxygen saturation in 2022-02-16 21:41:00 98 /min [facility] of Arterial blood by [facility] Pulse oximetry Branch Body height 2022-02-11 16:02:00 162.6 cm [facility] [place] [facility] Body weight 2022-02-11 16:02:00 79.379 kg [facility] [place] [facility] BMI 2022-02-11 16:02:00 30.04 kg/m2 [facility] [place] [facility] Systolic blood 2021-11-20 13:47:00 165 mm[Hg] Univer [facility]ity of [facility] [place] [facility] Diastolic blood 2021-11-20 13:47:00 83 mm[Hg] Unive rsity of [facility] [place] [facility] Heart rate 2021-11-20 13:47:00 58 /min [facility] [place] [facility] Body temperature 2021-11-20 13:42:00 36.39 Amina [facility] [place] [facility] Respiratory rate 2021-11-20 13:42:00 16 /min [facility] [place] [facility] Body height 2021-11-20 13:42:00 162.6 cm [facility] [place] [facility] Body weight 2021-11-20 13:42:00 84.369 kg [facility] [place] [facility] BMI 2021-11-20 13:42:00 31.93 kg/m2 [facility] [place] [facility] Systolic blood 2021-07-14 15:18:00 142 mm[facility]Hg[facility] Diastolic blood 2021-07-14 15:18:00 76 mm[facility]Hg[facility] Heart rate 2021-07-14 15:18:00 61 [facility] 2021-07-14 15:18:00 [facility] 2021-07-14 15:18:00 [facility] 2021-07-14 15:18:00 35.87 kg/m2 [facility] Systolic blood 2022-03-05 15:23:00 167 mm[Hg] Univer sity of pressure [facility] Diastolic blood 2022-03-05 15:23:00 105 mm[Hg] Unive rsity [facility] Heart rate 2022-03-05 15:23:00 49 /min [facility] Body temperature 2022-03-05 15:18:00 36.67 Amina [facility] 2022-03-05 15:18:00 18 /min [facility] Body height 2022-03-05 15:18:00 162.6 cm [facility] Body weight 2022-03-05 15:18:00 74.707 kg [facility] BMI 2022-03-05 15:18:00 28.27 kg/m2 [facility] Oxygen saturation in 2022-02-16 21:41:00 98 /min [facility] Arterial blood by [facility] Pulse oximetry Branch Systolic blood 2020-12-08 15:48:00 125 mm[Hg] Method [facility] pressure Diastolic blood 2020-12-08 15:48:00 76 mm[Hg] [facility] pressure Heart rate 2020-12-08 15:48:00 64 /min [facility] Body temperature 2020-12-08 15:48:00 36.61 Amina [facility] Respiratory rate 2020-12-08 15:48:00 17 /min [facility] Body height 2020-12-08 15:48:00 162.6 cm [facility] Body weight 2020-12-08 15:48:00 98.884 kg [facility] BMI 2020-12-08 15:48:00 37.42 kg/m2 [facility] Oxygen saturation in 2020-12-08 15:48:00 97 /min [facility] Arterial blood by Pulse oximetry Respitory Rate 2020-08-30 13:00:00 Memori al Marty Systolic (mm Hg) 2020-08-30 13:00:00 Caesar rial [place] Diastolic (mm Hg) 2020-08-30 13:00:00 Mem orial Marty Systolic (mm Hg) 2020-08-30 11:00:00 Caesar rial Marty Diastolic (mm Hg) 2020-08-30 11:00:00 Mem orial [facility] Temperature Oral (F) 2020-08-30 11:00:00 98.4 F [facility] Respitory Rate 2020-08-30 11:00:00 [facility] [place] Respitory Rate 2020-08-30 10:00:00 Memori al Marty Systolic (mm Hg) 2020-08-30 10:00:00 Caesar rial [place] Diastolic (mm Hg) 2020-08-30 10:00:00 Mem orial [place] Temperature Oral (F) 2020-08-30 00:00:00 96.9 F [facility] Temperature Oral (F) 2020-08-29 11:26:[address] [facility] Height 2020-08-29 10:30:[address] [facility] Weight 2020-08-29 10:30:[address] [facility] BMI Calculated 2020-08-29 10:30:00 Memori al [place] Procedures Procedure Date / Time Performing Clinician Source Performed BASIC METABOLIC PANEL (NA, 2022-04-22 21:23:00 Paulette Gray [facility] K, CL, CO2, GLUCOSE, BUN, Medica l Branch CREATININE, [place]) CBC WITH DIFF 2022-04-22 21:23:00 Paulette Gray [place] [facility] CONSENT/REFUSAL FOR 2022-04-22 19:45:46 Doctor Unassigned, [facility] DIAGNOSIS AND TREATMENT [place] [facility] SARS-COV-2 COVID-19 2022-03-05 16:09:27 [facility] DIMITRIS-SUCROSE VACCINE 12 Medical Branch YRS+, BIVALENT 0.3ML, IM, (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) FLU 2022-03-05 16:09:27 [facility] VACC(),65+YR,0.5 Medica l Branch ML,IM,ADJUVANTED,QUAD(FLUA D) FLU 2022-03-05 16:09:27 [facility] VACC(),65+YR,0.5 Medica l Branch ML,IM,ADJUVANTED,QUAD(FLUA D) SARS-COV-2 COVID-19 2022-03-05 16:09:27 [facility] DIMITRIS-SUCROSE VACCINE [address] [place] [address] YRS+, BIVALENT 0.3ML, IM, (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) MAGNESIUM 2022-02-15 09:41:00 Radha Sofai [facility] BASIC METABOLIC PANEL (NA, 2022-02-15 09:41:00 Radha Sofia [facility] K, CL, CO2, GLUCOSE, BUN, Medica l Branch CREATININE, CA) CBC WITH DIFF 2022-02-15 09:41:00 Radha [facility] N-TERMINAL PRO-BNP 2022-02-15 09:41:00 Sofia Garcia [facility] CBC WITH DIFF 2022-02-15 09:41:00 Radha Sofia [facility] BASIC METABOLIC PANEL (NA, 2022-02-15 09:41:00 Sofia Garcia [facility] K, CL, CO2, GLUCOSE, BUN, Medica l Branch CREATININE, CA) MAGNESIUM 2022-02-15 09:41:00 Radha [facility] N-TERMINAL PRO-BNP 2022-02-15 09:41:00 Sofia Garcia [facility] BASIC METABOLIC PANEL (NA, 2022-02-13 09:40:00 Sofia Garcia [facility] K, CL, CO2, GLUCOSE, BUN, Medica l Branch CREATININE, CA) CBC WITH DIFF 2022-02-13 09:40:00 Sofia Garcia [facility] BASIC METABOLIC PANEL (NA, 2022-02-13 09:40:00 Sofia Garcia [facility] K, CL, CO2, GLUCOSE, BUN, Medica l Branch CREATININE, CA) CBC WITH DIFF 2022-02-13 09:40[facility]11 23:41[facility]00 [facility]NP 2022-02-11 23:41:00 Sofia Garcia [facility] TROPONIN I 2022-02-11 23:41:00 [facility] 2022-02-11 23:41:00 [facility]HYTHM 2022-02-11 22:15:36 Sofia Garcia [facility] TRANSTHORACIC ECHO (TTE) 2022-02-11 21:26:50 [facility] 2022-02-11 21:26:50 Sofia Garcia [facility] CT ABDOMEN PELVIS W 2022-02-11 07:45:43 Miguelangel Reilly [facility] CONTRAST [facility] CT ABDOMEN PELVIS W 2022-02-11 07:45:43 Miguelangel Reilly [facility] CONTRAST [facility] RAPID INFLUENZA A/B 2022-02-11 06:54:00 Miguelangel Reilly [facility] RAPID INFLUENZA A/B 2022-02-11 06:54:00 Reilly Means [facility] URINALYSIS 2022-02-11 06:45:00 Reilly Means [facility] URINE CULTURE 2022-02-11 06:45:00 Miguelangel Reilly [facility] URINALYSIS 2022-02-11 06:45:00 Reilly Means [facility] URINE CULTURE 2022-02-11 06:45:00 Miguelangel Reilly [facility] HB ECG ROUTINE & RHYTHM 2022-02-11 05:22:08 Reilly Means [facility] HB ECG ROUTINE & RHYTHM 2022-02-11 05:22:08 Reilly Means [facility] BLOOD CULTURE SCREEN 2022-02-11 04:58:00 Reilly Means [facility] TROPONIN I 2022-02-11 04:58:00 Reilly Means [facility] COMP. METABOLIC PANEL 2022-02-11 04:58:00 Reilly Means [facility] ([id number]) Medical Branch CBC WITH DIFF 2022-02-11 04:58:00 Reilly Means [facility] PROTHROMBIN TIME / INR 2022-02-11 04:58:00 [facility] ACTIVATED PARTIAL THRMPLAS 2022-02-11 04:58:00 Reilly Means [facility] N-TERMINAL PRO-BNP 2022-02-11 04:58:00 Reilly Means [facility] LACTIC ACID WHOLE BLOOD 2022-02-11 04:58:00 Reilly Means [facility] COVID-19 (ID NOW RAPID 2022-02-11 04:58:00 Reilly Means [facility] TESTING) Medical Branch LAB ONLY COVID 2022-02-11 04:58:00 Reilly Means [facility] CBC WITH DIFF 2022-02-11 04:58:00 Reilly Means [facility] ACTIVATED PARTIAL THRMPLAS 2022-02-11 04:58:00 Reilly Means [facility] PROTHROMBIN TIME / INR 2022-02-11 04:58:00 [facility]illy [facility] COVID-19 (ID NOW RAPID 2022-02-11 04:58:00 Reilly Means [facility] TESTING) Medical Branch COMP. METABOLIC PANEL 2022-02-11 04:58:00 Reilly Means [facility] ([id number]) Medical Branch TROPONIN I 2022-02-11 04:58:00 Reilly Means [facility] N-TERMINAL PRO-BNP 2022-02-11 04:58:00 Reilly Means [facility] BLOOD CULTURE SCREEN 2022-02-11 04:58:00 Reilly Means [facility] LACTIC ACID WHOLE BLOOD 2022-02-11 04:58:00 Reilly Means [facility] Medical [facility] LAB ONLY COVID 2022-02-11 04:58:00 Reilly Means [facility] INTERPRETATION [facility] Branch XR CHEST 1 VW 2022-02-11 04:27:42 Miguelangel Reilly [facility] Branch XR CHEST 1 VW 2022-02-11 04:27:42 Reilly Means [facility] HOSPITAL ADMISSION 2022-02-10 05:01:00 Doctor Unassigned, [facility] [place] [facility] HOSPITAL ADMISSION 2022-02-10 05:01:00 Doctor Unassigned, [facility] Name [facility] ECG 12-LEAD 2021-07-14 15:14:00 Elan Lira [facility] [id number] 2021-06-17 00:00:00 RIKY CLARK [facility] GASTROINTESTINAL PANEL 2020-12-08 22:21:00 Eliseo Arce [facility] XR ABDOMEN 1 VW 2020-12-08 18:06:32 Eliseo Arce spital OR [place] < 1 HOUR 2020-09-05 22:39:00 Eliseo Arce spital SURGICAL PATHOLOGY REQUEST 2020-09-05 21:54:00 Eliseo Arce [facility] XR CHEST 1 VW PORTABLE 2020-09-05 19:55:00 Eliseo Arce [facility] DISCHARGE PATIENT 2020-09-05 17:27:55 Lucas Harris [facility] [place] AN ELECTIVE 2020-09-05 16:47:23 Kirit Flood V. [facility] ENDOTRACHEAL AIRWAY EGD, INTRAOPERATIVE 2020-09-05 16:27[facility]00 [facility] 2020-09-05 15:04:00 Sarai Maharaj [facility] TIME (PTT) M. PROTHROMBIN TIME WITH INR 2020-09-05 15:04:00 Mindy Maharaj [facility] M. Plan of Care Planned Activity Planned Date Details Comments Source Future Scheduled 2022-04-30 SHINGLES VACCINES (1 Met [facility] Test 01:07:32 of 2) [code = SHINGLES VACCINES (1 of 2)] Future Scheduled 2022-04-30 BREAST CANCER [facility] Test 01:07:32 SCREENING [code = BREAST CANCER SCREENING] Future Scheduled 2022-04-30 COLONOSCOPY SCREENING [facility] Test 01:07:32 [code = COLONOSCOPY SCREENING] Future Scheduled 2022-04-30 HEPATITIS B VACCINES Met [facility] Test 01:07:32 (1 of 3 - Risk 3-dose series) [code = HEPATITIS B VACCINES (1 of 3 - Risk 3-dose series)] Future Scheduled 2022-04-30 COVID-19 VACCINE (3 - Me [facility] Test 01:07:32 Booster for Pfizer series) [code = COVID-19 VACCINE (3 - Booster for Pfizer series)] Future Scheduled 2022-04-30 65+ PNEUMOCOCCAL [facility] Test 01:07:32 VACCINE (4 - PPSV23 if available, else PCV20) [code = 65+ PNEUMOCOCCAL VACCINE (4 - PPSV23 if available, else PCV20)] Future Scheduled 2022-04-30 INFLUENZA VACCINE Method [facility] Test 01:07:32 [code = INFLUENZA VACCINE] Future Scheduled 2022-04-30 SHINGLES VACCINES (1 Met [facility] Test 01:07:32 of 2) [code = SHINGLES VACCINES (1 of 2)] Future Scheduled 2022-04-30 BREAST CANCER [facility] Test 01:07:32 SCREENING [code = BREAST CANCER SCREENING] Future Scheduled 2022-04-30 COLONOSCOPY SCREENING [facility] Test 01:07:32 [code = COLONOSCOPY SCREENING] Future Scheduled 2022-04-30 HEPATITIS B VACCINES Met [facility] Test 01:07:32 (1 of 3 - Risk 3-dose series) [code = HEPATITIS B VACCINES (1 of 3 - Risk 3-dose series)] Future Scheduled 2022-04-30 COVID-19 VACCINE (3 - [facility] Test 01:07:32 Booster for Pfizer series) [code = COVID-19 VACCINE (3 - Booster for Pfizer series)] Future Scheduled 2022-04-30 65+ [facility] VACCINE (4 - PPSV23 if available, else PCV20) [code = 65+ PNEUMOCOCCAL VACCINE (4 - PPSV23 if available, else PCV20)] Future Scheduled 2022-04-30 INFLUENZA VACCINE [facility] Test 01:07:32 [code = INFLUENZA VACCINE] Future Scheduled 2022-04-25 SHINGLES VACCINES (1 Met [facility] Test 01:45:02 of 2) [code = SHINGLES VACCINES (1 of 2)] Future Scheduled 2022-04-25 BREAST CANCER [facility] Test 01:45:02 SCREENING [code = BREAST CANCER SCREENING] Future Scheduled 2022-04-25 COLONOSCOPY SCREENING [facility] Test 01:45:02 [code = COLONOSCOPY SCREENING] Future Scheduled 2022-04-25 HEPATITIS B VACCINES Met [facility] Test 01:45:02 (1 of 3 - Risk 3-dose series) [code = HEPATITIS B VACCINES (1 of 3 - Risk 3-dose series)] Future Scheduled 2022-04-25 COVID-19 VACCINE (3 - [facility] Test 01:45:02 Booster for Pfizer series) [code = COVID-19 VACCINE (3 - Booster for Pfizer series)] Future Scheduled 2022-04-25 65+ PNEUMOCOCCAL [facility] Test 01:45:02 VACCINE (4 - PPSV23 if available, else PCV20) [code = 65+ PNEUMOCOCCAL VACCINE (4 - PPSV23 if available, else PCV20)] Future Scheduled 2022-04-25 INFLUENZA VACCINE Method [facility] Test 01:45:02 [code = INFLUENZA VACCINE] Future Scheduled 2022-03-25 SHINGLES VACCINES (1 Met [facility] Test 14:48:42 of 2) [code = SHINGLES VACCINES (1 of 2)] Future Scheduled 2022-03-25 BREAST CANCER [facility] Test 14:48:42 SCREENING [code = BREAST CANCER SCREENING] Future Scheduled 2022-03-25 COLONOSCOPY SCREENING [facility] Test 14:48:42 [code = COLONOSCOPY SCREENING] Future Scheduled 2022-03-25 HEPATITIS B VACCINES Met [facility] Test 14:48:42 (1 of 3 - Risk 3-dose series) [code = HEPATITIS B VACCINES (1 of 3 - Risk 3-dose series)] Future Scheduled 2022-03-25 COVID-19 VACCINE (3 - [facility] Test 14:48:42 Booster for Pfizer series) [code = COVID-19 VACCINE (3 - Booster for Pfizer series)] Future Scheduled 2022-03-25 65+ PNEUMOCOCCAL [facility] Test 14:48:42 VACCINE (4 - PPSV23 if available, else PCV20) [code = 65+ PNEUMOCOCCAL VACCINE (4 - PPSV23 if available, else PCV20)] Future Scheduled 2022-03-25 INFLUENZA VACCINE Method [facility] Test 14:48:42 [code = INFLUENZA VACCINE] Future Scheduled 2022-03-25 SHINGLES VACCINES (1 Met [facility] Test 14:48:42 of 2) [code = SHINGLES VACCINES (1 of 2)] Future Scheduled 2022-03-25 BREAST CANCER [facility] Test 14:48:42 SCREENING [code = BREAST CANCER SCREENING] Future Scheduled 2022-03-25 COLONOSCOPY SCREENING [facility] Test 14:48:42 [code = COLONOSCOPY SCREENING] Future Scheduled 2022-03-25 HEPATITIS B VACCINES Met [facility] Test 14:48:42 (1 of 3 - Risk 3-dose series) [code = HEPATITIS B VACCINES (1 of 3 - Risk 3-dose series)] Future Scheduled 2022-03-25 COVID-19 VACCINE (3 - Me [facility] Test 14:48:42 Booster for Pfizer series) [code = COVID-19 VACCINE (3 - Booster for Pfizer series)] Future Scheduled 2022-03-25 65+ PNEUMOCOCCAL [facility] Test 14:48:42 VACCINE (4 - PPSV23 if available, else PCV20) [code = 65+ PNEUMOCOCCAL VACCINE (4 - PPSV23 if available, else PCV20)] Future Scheduled 2022-03-25 INFLUENZA VACCINE Method [facility] Test 14:48:42 [code = INFLUENZA VACCINE] Future Scheduled 2022-03-25 SHINGLES VACCINES (1 Met [facility] Test 14:48:42 of 2) [code = SHINGLES VACCINES (1 of 2)] Future Scheduled 2022-03-25 BREAST CANCER [facility] Test 14:48:42 SCREENING [code = BREAST CANCER SCREENING] Future Scheduled 2022-03-25 COLONOSCOPY SCREENING [facility] Test 14:48:42 [code = COLONOSCOPY SCREENING] Future Scheduled 2022-03-25 HEPATITIS B VACCINES Met [facility] Test 14:48:42 (1 of 3 - Risk 3-dose series) [code = HEPATITIS B VACCINES (1 of 3 - Risk 3-dose series)] Future Scheduled 2022-03-25 COVID-19 VACCINE (3 - Me [facility] Test 14:48:42 Booster for Pfizer series) [code = COVID-19 VACCINE (3 - Booster for Pfizer series)] Future Scheduled 2022-03-25 65+ [facility]42 VACCINE (4 - PPSV23 if available, else PCV20) [code = 65+ PNEUMOCOCCAL VACCINE (4 - PPSV23 if available, else PCV20)] Future Scheduled 2022-03-25 INFLUENZA VACCINE Method [facility] Test 14:48:42 [code = INFLUENZA VACCINE] Future Scheduled 2022-03-25 SHINGLES VACCINES (1 Met [facility] Test 14:48:42 of 2) [code = SHINGLES VACCINES (1 of 2)] Future Scheduled 2022-03-25 BREAST CANCER [facility] Test 14:48:42 SCREENING [code = BREAST CANCER SCREENING] Future Scheduled 2022-03-25 COLONOSCOPY SCREENING [facility] Test 14:48:42 [code = COLONOSCOPY SCREENING] Future Scheduled 2022-03-25 HEPATITIS B VACCINES Met [facility] Test 14:48:42 (1 of 3 - Risk 3-dose series) [code = HEPATITIS B VACCINES (1 of 3 - Risk 3-dose series)] Future Scheduled 2022-03-25 COVID-19 VACCINE (3 - Me [facility] Test 14:48:42 Booster for Pfizer series) [code = COVID-19 VACCINE (3 - Booster for Pfizer series)] Future Scheduled 2022-03-25 65+ [facility] 14:48:42 VACCINE (4 - PPSV23 if available, else PCV20) [code = 65+ PNEUMOCOCCAL VACCINE (4 - PPSV23 if available, else PCV20)] Future Scheduled 2022-03-25 INFLUENZA VACCINE Method [facility] Test 14:48:42 [code = INFLUENZA VACCINE] Future Scheduled 2022-03-25 SHINGLES VACCINES (1 Met [facility] Test 14:48:42 of 2) [code = SHINGLES VACCINES (1 of 2)] Future Scheduled 2022-03-25 BREAST CANCER [facility] Test 14:48:42 SCREENING [code = BREAST CANCER SCREENING] Future Scheduled 2022-03-25 COLONOSCOPY SCREENING [facility] Test 14:48:42 [code = COLONOSCOPY SCREENING] Future Scheduled 2022-03-25 HEPATITIS B VACCINES Met [facility] Test 14:48:42 (1 of 3 - Risk 3-dose series) [code = HEPATITIS B VACCINES (1 of 3 - Risk 3-dose series)] Future Scheduled 2022-03-25 COVID-19 VACCINE (3 - [facility] Test 14:48:42 Booster for Pfizer series) [code = COVID-19 VACCINE (3 - Booster for Pfizer series)] Future Scheduled 2022-03-25 65+ PNEUMOCOCCAL [facility] Test 14:48:42 VACCINE (4 - PPSV23 if available, else PCV20) [code = 65+ PNEUMOCOCCAL VACCINE (4 - PPSV23 if available, else PCV20)] Future Scheduled 2022-03-25 INFLUENZA VACCINE Method [facility] Test 14:48:42 [code = INFLUENZA VACCINE] Future Scheduled 2022-03-25 SHINGLES VACCINES (1 Met [facility] Test 14:48:42 of 2) [code = SHINGLES VACCINES (1 of 2)] Future Scheduled 2022-03-25 BREAST CANCER [facility] Test 14:48:42 SCREENING [code = BREAST CANCER SCREENING] Future Scheduled 2022-03-25 COLONOSCOPY SCREENING [facility] Test 14:48:42 [code = COLONOSCOPY SCREENING] Future Scheduled 2022-03-25 HEPATITIS B VACCINES Met [facility] Test 14:48:42 (1 of 3 - Risk 3-dose series) [code = HEPATITIS B VACCINES (1 of 3 - Risk 3-dose series)] Future Scheduled 2022-03-25 COVID-19 VACCINE (3 - [facility] Test 14:48:42 Booster for Pfizer series) [code = COVID-19 VACCINE (3 - Booster for Pfizer series)] Future Scheduled 2022-03-25 65+ [facility] VACCINE (4 - PPSV23 if available, else PCV20) [code = 65+ PNEUMOCOCCAL VACCINE (4 - PPSV23 if available, else PCV20)] Future Scheduled 2022-03-25 INFLUENZA VACCINE Method [facility] Test 14:48:42 [code = INFLUENZA VACCINE] Future Scheduled 2022-03-25 SHINGLES VACCINES (1 Met [facility] Test 14:48:42 of 2) [code = SHINGLES VACCINES (1 of 2)] Future Scheduled 2022-03-25 BREAST CANCER [facility] Test 14:48:42 SCREENING [code = BREAST CANCER SCREENING] Future Scheduled 2022-03-25 COLONOSCOPY SCREENING Me [facility] Test 14:48:42 [code = COLONOSCOPY SCREENING] Future Scheduled 2022-03-25 HEPATITIS B VACCINES Met [facility] Test 14:48:42 (1 of 3 - Risk 3-dose series) [code = HEPATITIS B VACCINES (1 of 3 - Risk 3-dose series)] Future Scheduled 2022-03-25 COVID-19 VACCINE (3 - Me [facility] Test 14:48:42 Booster for Pfizer series) [code = COVID-19 VACCINE (3 - Booster for Pfizer series)] Future Scheduled 2022-03-25 65+ [facility] 14:48:42 VACCINE (4 - PPSV23 if available, else PCV20) [code = 65+ PNEUMOCOCCAL VACCINE (4 - PPSV23 if available, else PCV20)] Future Scheduled 2022-03-25 INFLUENZA VACCINE Method [facility] Test 14:48:42 [code = INFLUENZA VACCINE] Future Scheduled 2022-03-25 SHINGLES VACCINES (1 Met [facility] Test 14:48:42 of 2) [code = SHINGLES VACCINES (1 of 2)] Future Scheduled 2022-03-25 BREAST CANCER [facility] Test 14:48:42 SCREENING [code = BREAST CANCER SCREENING] Future Scheduled 2022-03-25 COLONOSCOPY SCREENING [facility] Test 14:48:42 [code = COLONOSCOPY SCREENING] Future Scheduled 2022-03-25 HEPATITIS B VACCINES Met [facility] Test 14:48:42 (1 of 3 - Risk 3-dose series) [code = HEPATITIS B VACCINES (1 of 3 - Risk 3-dose series)] Future Scheduled 2022-03-25 COVID-19 VACCINE (3 - Me [facility] Test 14:48:42 Booster for Pfizer series) [code = COVID-19 VACCINE (3 - Booster for Pfizer series)] Future Scheduled 2022-03-25 65+ [facility]AL [facility] 14:48:42 VACCINE (4 - PPSV23 if available, else PCV20) [code = 65+ PNEUMOCOCCAL VACCINE (4 - PPSV23 if available, else PCV20)] Future Scheduled 2022-03-25 INFLUENZA VACCINE Method [facility] Test 14:48:42 [code = INFLUENZA VACCINE] Future Scheduled 2022-03-25 SHINGLES VACCINES (1 Met [facility] Test 14:48:42 of 2) [code = SHINGLES VACCINES (1 of 2)] Future Scheduled 2022-03-25 BREAST CANCER [facility] Test 14:48:42 SCREENING [code = BREAST CANCER SCREENING] Future Scheduled 2022-03-25 COLONOSCOPY SCREENING [facility] Test 14:48:42 [code = COLONOSCOPY SCREENING] Future Scheduled 2022-03-25 HEPATITIS B VACCINES Met [facility] Test 14:48:42 (1 of 3 - Risk 3-dose series) [code = HEPATITIS B VACCINES (1 of 3 - Risk 3-dose series)] Future Scheduled 2022-03-25 COVID-19 VACCINE (3 - [facility] Test 14:48:42 Booster for Pfizer series) [code = COVID-19 VACCINE (3 - Booster for Pfizer series)] Future Scheduled 2022-03-25 65+ [facility]:48:[facility] VACCINE (4 - PPSV23 if available, else PCV20) [code = 65+ PNEUMOCOCCAL VACCINE (4 - PPSV23 if available, else PCV20)] Future Scheduled 2022-03-25 INFLUENZA VACCINE Method [facility] Test 14:48:42 [code = INFLUENZA VACCINE] Future Scheduled 2022-03-04 SHINGLES VACCINES (1 Met [facility] Test 14:03:57 of 2) [code = SHINGLES VACCINES (1 of 2)] Future Scheduled 2022-03-04 BREAST CANCER [facility] Test 14:03:57 SCREENING [code = BREAST CANCER SCREENING] Future Scheduled 2022-03-04 COLONOSCOPY SCREENING [facility] Test 14:03:57 [code = COLONOSCOPY SCREENING] Future Scheduled 2022-03-04 HEPATITIS B VACCINES Met [facility] Test 14:03:57 (1 of 3 - Risk 3-dose series) [code = HEPATITIS B VACCINES (1 of 3 - Risk 3-dose series)] Future Scheduled 2022-03-04 COVID-19 VACCINE (3 - [facility] Test 14:03:57 Booster for Pfizer series) [code = COVID-19 VACCINE (3 - Booster for Pfizer series)] Future Scheduled 2022-03-04 65+ [facility]:03[facility]57 VACCINE (4 - PPSV23 if available, else PCV20) [code = 65+ PNEUMOCOCCAL VACCINE (4 - PPSV23 if available, else PCV20)] Future Scheduled 2022-03-04 INFLUENZA VACCINE Method [facility] Test 14:03:57 [code = INFLUENZA VACCINE] Future Scheduled 2022-03-04 SHINGLES VACCINES (1 Met [facility] Test 14:03:57 of 2) [code = SHINGLES VACCINES (1 of 2)] Future Scheduled 2022-03-04 BREAST CANCER [facility] Test 14:03:57 SCREENING [code = BREAST CANCER SCREENING] Future Scheduled 2022-03-04 COLONOSCOPY SCREENING [facility] Test 14:03:57 [code = COLONOSCOPY SCREENING] Future Scheduled 2022-03-04 HEPATITIS B VACCINES Met [facility] Test 14:03:57 (1 of 3 - Risk 3-dose series) [code = HEPATITIS B VACCINES (1 of 3 - Risk 3-dose series)] Future Scheduled 2022-03-04 COVID-19 VACCINE (3 - [facility] Test 14:03:57 Booster for Pfizer series) [code = COVID-19 VACCINE (3 - Booster for Pfizer series)] Future Scheduled 2022-03-04 65+ [facility] 14:03:57 VACCINE (4 - PPSV23 if available, else PCV20) [code = 65+ PNEUMOCOCCAL VACCINE (4 - PPSV23 if available, else PCV20)] Future Scheduled 2022-03-04 INFLUENZA VACCINE Method [facility] Test 14:03:57 [code = INFLUENZA VACCINE] Future Scheduled 2022-03-04 SHINGLES VACCINES (1 Met [facility] Test 14:03:57 of 2) [code = SHINGLES VACCINES (1 of 2)] Future Scheduled 2022-03-04 BREAST CANCER [facility] Test 14:03:57 SCREENING [code = BREAST CANCER SCREENING] Future Scheduled 2022-03-04 COLONOSCOPY SCREENING [facility] Test 14:03:57 [code = COLONOSCOPY SCREENING] Future Scheduled 2022-03-04 HEPATITIS B VACCINES Met [facility] Test 14:03:57 (1 of 3 - Risk 3-dose series) [code = HEPATITIS B VACCINES (1 of 3 - Risk 3-dose series)] Future Scheduled 2022-03-04 COVID-19 VACCINE (3 - [facility] Test 14:03:57 Booster for Pfizer series) [code = COVID-19 VACCINE (3 - Booster for Pfizer series)] Future Scheduled 2022-03-04 65+ PNEUMOCOCCAL [facility] Test 14:03:57 VACCINE (4 - PPSV23 if available, else PCV20) [code = 65+ PNEUMOCOCCAL VACCINE (4 - PPSV23 if available, else PCV20)] Future Scheduled 2022-03-04 INFLUENZA VACCINE Method [facility] Test 14:03:57 [code = INFLUENZA VACCINE] Future Scheduled 2022-03-04 SHINGLES VACCINES (1 Met [facility] Test 14:03:57 of 2) [code = SHINGLES VACCINES (1 of 2)] Future Scheduled 2022-03-04 BREAST CANCER [facility] Test 14:03:57 SCREENING [code = BREAST CANCER SCREENING] Future Scheduled 2022-03-04 COLONOSCOPY SCREENING [facility] Test 14:03:57 [code = COLONOSCOPY SCREENING] Future Scheduled 2022-03-04 HEPATITIS B VACCINES Met [facility] Test 14:03:57 (1 of 3 - Risk 3-dose series) [code = HEPATITIS B VACCINES (1 of 3 - Risk 3-dose series)] Future Scheduled 2022-03-04 COVID-19 VACCINE (3 - Me [facility] Test 14:03:57 Booster for Pfizer series) [code = COVID-19 VACCINE (3 - Booster for Pfizer series)] Future Scheduled 2022-03-04 65+ PNEUMOCOCCAL [facility] Test 14:03:57 VACCINE (4 - PPSV23 if available, else PCV20) [code = 65+ PNEUMOCOCCAL VACCINE (4 - PPSV23 if available, else PCV20)] Future Scheduled 2022-03-04 INFLUENZA VACCINE Method [facility] Test 14:03:57 [code = INFLUENZA VACCINE] Future Scheduled 2022-02-11 SHINGLES VACCINES (1 Met [facility] Test 13:39:12 of 2) [code = SHINGLES VACCINES (1 of 2)] Future Scheduled 2022-02-11 BREAST CANCER [facility] Test 13:39:12 SCREENING [code = BREAST CANCER SCREENING] Future Scheduled 2022-02-11 COLONOSCOPY SCREENING [facility] Test 13:39:12 [code = COLONOSCOPY SCREENING] Future Scheduled 2022-02-11 HEPATITIS B VACCINES Met [facility] Test 13:39:12 (1 of 3 - Risk 3-dose series) [code = HEPATITIS B VACCINES (1 of 3 - Risk 3-dose series)] Future Scheduled 2022-02-11 COVID-19 VACCINE (3 - Me [facility] Test 13:39:12 Booster for Pfizer series) [code = COVID-19 VACCINE (3 - Booster for Pfizer series)] Future Scheduled 2022-02-11 65+ PNEUMOCOCCAL [facility] Test 13:39:12 VACCINE (4 - PPSV23 or PCV20) [code = 65+ PNEUMOCOCCAL VACCINE (4 - PPSV23 or PCV20)] Future Scheduled 2022-02-11 INFLUENZA VACCINE Method [facility] Test 13:39:12 [code = INFLUENZA VACCINE] Future Scheduled 2022-01-29 SHINGLES VACCINES (1 Met [facility] Test 14:07:20 of 2) [code = SHINGLES VACCINES (1 of 2)] Future Scheduled 2022-01-29 BREAST CANCER [facility] Test 14:07:20 SCREENING [code = BREAST CANCER SCREENING] Future Scheduled 2022-01-29 COLONOSCOPY SCREENING [facility] Test 14:07:20 [code = COLONOSCOPY SCREENING] Future Scheduled 2022-01-29 HEPATITIS B VACCINES Met [facility] Test 14:07:20 (1 of 3 - Risk 3-dose series) [code = HEPATITIS B VACCINES (1 of 3 - Risk 3-dose series)] Future Scheduled 2022-01-29 COVID-19 VACCINE (3 - [facility] Test 14:07:20 Booster for Pfizer series) [code = COVID-19 VACCINE (3 - Booster for Pfizer series)] Future Scheduled 2022-01-29 65+ PNEUMOCOCCAL [facility] Test 14:07:20 VACCINE (4 - PPSV23 or PCV20) [code = 65+ PNEUMOCOCCAL VACCINE (4 - PPSV23 or PCV20)] Future Scheduled 2022-01-29 INFLUENZA VACCINE Method [facility] Test 14:07:20 [code = INFLUENZA VACCINE] Future Scheduled 2022-01-29 SHINGLES VACCINES (1 Met [facility] Test 14:07:20 of 2) [code = SHINGLES VACCINES (1 of 2)] Future Scheduled 2022-01-29 BREAST CANCER [facility] Test 14:07:20 SCREENING [code = BREAST CANCER SCREENING] Future Scheduled 2022-01-29 COLONOSCOPY SCREENING [facility] Test 14:07:20 [code = COLONOSCOPY SCREENING] Future Scheduled 2022-01-29 HEPATITIS B VACCINES Met [facility] Test 14:07:20 (1 of 3 - Risk 3-dose series) [code = HEPATITIS B VACCINES (1 of 3 - Risk 3-dose series)] Future Scheduled 2022-01-29 COVID-19 VACCINE (3 - Me [facility] Test 14:07:20 Booster for Pfizer series) [code = COVID-19 VACCINE (3 - Booster for Pfizer series)] Future Scheduled 2022-01-29 65+ PNEUMOCOCCAL [facility] Test 14:07:20 VACCINE (4 - PPSV23 or PCV20) [code = 65+ PNEUMOCOCCAL VACCINE (4 - PPSV23 or PCV20)] Future Scheduled 2022-01-29 INFLUENZA VACCINE Method [facility] Test 14:07:20 [code = INFLUENZA VACCINE] Future Scheduled 2022-01-29 SHINGLES VACCINES (1 Met [facility] Test 14:07:20 of 2) [code = SHINGLES VACCINES (1 of 2)] Future Scheduled 2022-01-29 BREAST CANCER [facility] Test 14:07:20 SCREENING [code = BREAST CANCER SCREENING] Future Scheduled 2022-01-29 COLONOSCOPY SCREENING [facility] Test 14:07:20 [code = COLONOSCOPY SCREENING] Future Scheduled 2022-01-29 HEPATITIS B VACCINES Met [facility] Test 14:07:20 (1 of 3 - Risk 3-dose series) [code = HEPATITIS B VACCINES (1 of 3 - Risk 3-dose series)] Future Scheduled 2022-01-29 COVID-19 VACCINE (3 - [facility] Test 14:07:20 Booster for Pfizer series) [code = COVID-19 VACCINE (3 - Booster for Pfizer series)] Future Scheduled 2022-01-29 65+ PNEUMOCOCCAL [facility] Test 14:07:20 VACCINE (4 - PPSV23 or PCV20) [code = 65+ PNEUMOCOCCAL VACCINE (4 - PPSV23 or PCV20)] Future Scheduled 2022-01-29 INFLUENZA VACCINE Method [facility] Test 14:07:20 [code = INFLUENZA VACCINE] Future Scheduled 2022-01-29 SHINGLES VACCINES (1 Met [facility] Test 14:07:20 of 2) [code = SHINGLES VACCINES (1 of 2)] Future Scheduled 2022-01-29 BREAST CANCER [facility] Test 14:07:20 SCREENING [code = BREAST CANCER SCREENING] Future Scheduled 2022-01-29 COLONOSCOPY SCREENING [facility] Test 14:07:20 [code = COLONOSCOPY SCREENING] Future Scheduled 2022-01-29 HEPATITIS B VACCINES Met [facility] Test 14:07:20 (1 of 3 - Risk 3-dose series) [code = HEPATITIS B VACCINES (1 of 3 - Risk 3-dose series)] Future Scheduled 2022-01-29 COVID-19 VACCINE (3 - [facility] Test 14:07:20 Booster for Pfizer series) [code = COVID-19 VACCINE (3 - Booster for Pfizer series)] Future Scheduled 2022-01-29 65+ PNEUMOCOCCAL [facility] Test 14:07:20 VACCINE (4 - PPSV23 or PCV20) [code = 65+ PNEUMOCOCCAL VACCINE (4 - PPSV23 or PCV20)] Future Scheduled 2022-01-29 INFLUENZA VACCINE Method [facility] Test 14:07:20 [code = INFLUENZA VACCINE] Future Scheduled 2022-01-20 SHINGLES VACCINES (1 Met [facility] Test 06:12:34 of 2) [code = SHINGLES VACCINES (1 of 2)] Future Scheduled 2022-01-20 Screening for [facility] Test 06:12:34 malignant neoplasm of cervix (procedure) [code = [id number]] Future Scheduled 2022-01-20 BREAST CANCER [facility] Test 06:12:34 SCREENING [code = BREAST CANCER SCREENING] Future Scheduled 2022-01-20 COLONOSCOPY SCREENING [facility] Test 06:12:34 [code = COLONOSCOPY SCREENING] Future Scheduled 2022-01-20 HEPATITIS B VACCINES Met [facility] Test 06:12:34 (1 of 3 - Risk 3-dose series) [code = HEPATITIS B VACCINES (1 of 3 - Risk 3-dose series)] Future Scheduled 2022-01-20 COVID-19 VACCINE (3 - [facility] Test 06:12:34 Booster for Pfizer series) [code = COVID-19 VACCINE (3 - Booster for Pfizer series)] Future Scheduled 2022-01-20 65[facility] VACCINE (4 - PPSV23 or PCV20) [code = 65+ PNEUMOCOCCAL VACCINE (4 - PPSV23 or PCV20)] Future Scheduled 2022-01-20 INFLUENZA VACCINE [facility] Test 06:12:34 [code = INFLUENZA VACCINE] Future Scheduled 2022-01-16 SHINGLES VACCINES (1 Met [facility] Test 12:09:25 of 2) [code = SHINGLES VACCINES (1 of 2)] Future Scheduled 2022-01-16 Screening for [facility] Test 12:09:25 malignant neoplasm of cervix (procedure) [code = [id number]] Future Scheduled 2022-01-16 BREAST CANCER [facility] Test 12:09:25 SCREENING [code = BREAST CANCER SCREENING] Future Scheduled 2022-01-16 COLONOSCOPY SCREENING [facility] Test 12:09:25 [code = COLONOSCOPY SCREENING] Future Scheduled 2022-01-16 HEPATITIS B VACCINES Met [facility] Test 12:09:25 (1 of 3 - Risk 3-dose series) [code = HEPATITIS B VACCINES (1 of 3 - Risk 3-dose series)] Future Scheduled 2022-01-16 COVID-19 VACCINE (3 - [facility] Test 12:09:25 Booster for Pfizer series) [code = COVID-19 VACCINE (3 - Booster for Pfizer series)] Future Scheduled 2022-01-16 65+ [facility] 12:09:[facility] VACCINE (4 - PPSV23 or PCV20) [code = 65+ PNEUMOCOCCAL VACCINE (4 - PPSV23 or PCV20)] Future Scheduled 2022-01-16 INFLUENZA VACCINE Method [facility] Test 12:09:25 [code = INFLUENZA VACCINE] Future Scheduled 2022-01-14 SHINGLES VACCINES (1 Met [facility] Test 04:11:46 of 2) [code = SHINGLES VACCINES (1 of 2)] Future Scheduled 2022-01-14 Screening for [facility] Test 04:11:46 malignant neoplasm of cervix (procedure) [code = [id number]] Future Scheduled 2022-01-14 BREAST CANCER [facility] Test 04:11:46 SCREENING [code = BREAST CANCER SCREENING] Future Scheduled 2022-01-14 COLONOSCOPY SCREENING [facility] Test 04:11:46 [code = COLONOSCOPY SCREENING] Future Scheduled 2022-01-14 HEPATITIS B VACCINES Met [facility] Test 04:11:46 (1 of 3 - Risk 3-dose series) [code = HEPATITIS B VACCINES (1 of 3 - Risk 3-dose series)] Future Scheduled 2022-01-14 COVID-19 VACCINE (3 - Me [facility] Test 04:11:46 Booster for Pfizer series) [code = COVID-19 VACCINE (3 - Booster for Pfizer series)] Future Scheduled 2022-01-14 65+ PNEUMOCOCCAL [facility] Test 04:11:46 VACCINE (4 - PPSV23 or PCV20) [code = 65+ PNEUMOCOCCAL VACCINE (4 - PPSV23 or PCV20)] Future Scheduled 2022-01-14 INFLUENZA VACCINE Method [facility] Test 04:11:46 [code = INFLUENZA VACCINE] Future Scheduled 2021-08-26 Screening for [facility] Test 13:02:23 malignant neoplasm of cervix (procedure) [code = [id number]] Future Scheduled 2021-08-26 BREAST CANCER [facility] Test 13:02:23 SCREENING [code = BREAST CANCER SCREENING] Future Scheduled 2021-08-26 COLONOSCOPY SCREENING [facility] Test 13:02:23 [code = COLONOSCOPY SCREENING] Future Scheduled 2021-08-26 Screening for [facility] Test 13:02:23 malignant neoplasm of lung (procedure) [code = [id number]] Future Scheduled 2021-08-26 SHINGLES VACCINES (#1) M [facility] Test 13:02:23 [code = SHINGLES VACCINES (#1)] Future Scheduled 2021-08-26 COVID-19 VACCINE (3 - [facility] Test 13:02:23 Pfizer risk 4-dose series) [code = COVID-19 VACCINE (3 - Pfizer risk 4-dose series)] Future Scheduled 2021-08-26 65+ PNEUMOCOCCAL [facility] Test 13:02:23 VACCINE (4 of 4 - PPSV23) [code = 65+ PNEUMOCOCCAL VACCINE (4 of 4 - PPSV23)] Future Scheduled 2021-08-26 INFLUENZA VACCINE Method [facility] Test 13:02:23 [code = INFLUENZA VACCINE] Encounters Start End Encounter Admission Attending Care Care Encounter Source Date/Time Date/Time Type Type Clinicians Facility Department ID 2022-02-18 Outpatient CHW [facility]W [id number] [place] 14:30:[address] [place] [address] 2021-07-14 Outpatient PANKAJ, [facility] [id number] [place] 09:33:51 [facility] 2021-06-02 Outpatient HEMATPOUR, [facility] [id number] [place] 13:58:59 [facility] 2021-04-28 Outpatient HEMATPOUR, [facility] [id number] [place] 11:21[facility] 2021-03-20 Emergency [facility] [id number] Univers 16:07:40 ity [facility] 2020-12-12 Outpatient HEMATPOUR, [facility] [id number] [place] 08:16:46 [facility] 2020-10-31 Outpatient HEMATPOUR, [facility] [id number] [place] [facility] 2020-09-30 Outpatient HEMATPOUR, [facility] [id number] [place] 13:16[facility] 2022-04-22 2022-04-22 Emergency X [facility] [id number] Univers 13:55:00 17:00:00 PAULETTE ity [facility] 2022-04-22 2022-04-22 [facility] [id number] Univers 13:55:00 17:00:00 Paulette S [place] [id number] i ty [facility] [id number] [facility] [id number] [facility] [address] [place] 2022-04-07 2022-04-07 Outpatient R UNKNOWN, [facility] [id number] Univers 20:40:00 20:40:00 ATTENDING ity of [facility] 2022-04-07 2022-04-07 Telephone Devin [id number] Univers 00:00:00 00:00:00 Robbi Hairston [id number] i ty of 3.104.2.7 [place] .[id number] Medica l .8 [place] 2022-03-05 2022-03-05 Speech Assistant Santiago Cardenas [id number] Univers 13:45:00 14:00:00 Visit c-Lab [id number] ity of 3.104.2.7 [place] .3.627572 Medica l .8 [place] 2022-03-05 2022-03-05 [facility] [id number] Univers 13:00:00 13:30:00 Visit Santiago [facility] [id number] i ty of CLINICS 4.2.7.2.686 Richi bach [id number] [facility] [address]89 [place] 2022-03-05 2022-03-05 Outpatient [facility] [id number] Univers 13:00:00 13:00:00 [facility] 2022-02-26 2022-02-26 Outpatient R [facility] [id number] Univers 08:30:00 08:30:00 [facility] 2022-02-26 2022-02-26 Outpatient R [facility] [id number] Univers 08:30:00 08:30:00 [facility] 2022-02-17 2022-02-17 Transition Stevo, 1.2.840.4 [id number] Univers 00:00:00 00:00:00 of Care Isaias Arredondo [id number] it y of 3.104.2.7 [place] .3.246139 Medica l .8 [place] 2022-02-10 2022-02-16 Inpatient X [facility] [id number] Univers 22:59:00 19:27:00 TOMY ity [facility] 2022-02-10 2022-02-16 Hospital Reilly Means 1.2.840.1 [id number] Univers 22:59:00 19:27:00 Encounter Ofe Shields 58935.1.1 ity of [place] 3.104.2.7 [place] .3.779605 Medica l .8 [place] 2022-02-11 2022-02-11 Telephone East, 1.2.840.4 [id number] [id number] Univers 00:00:00 00:00:00 Santiago 17115.1.1 ity of 3.104.2.7 [place] .3.321681 Medica l .8 Conde 2022-02-10 2022-02-10 Travel 1.2.840.1 1.2.038.765 8628 9827 Univers 00:00:00 00:00:00 76091.1.1 350.1.13.10 ity of 3.104.2.7 4.[place].7.3.698 [place] .3.350382 084.8 Medica l .8 Branch 2022-01-30 2022-01-30 Telephone Ronald, 1.2.840.4 [id number] 965 [id number] Univers 00:00:00 00:00:00 Santiago 89030.1.1 ity of 3.104.2.7 [place] .3.147753 Medica l .8 Branch 2022-01-06 2022-01-06 Orders Doctor FERMIN 1.2.840.114 [id number] Univers 00:00:00 00:00:00 Only Unassigned, JACKELINE 350.1.13.10 ity of [place] [facility] 4.2.7.2.686 Yomi as [phone] [facility] 009 Branch 2021-12-25 2021-12-25 Orders Doctor FERMIN 1.2.840.114 [id number] Univers 00:00:00 00:00:00 Only Unassigned, JACKELINE 350.1.13.10 ity of [place] [facility] 4.2.7.2.686 Yomi as [phone] [facility] 009 Conde 2021-12-12 2021-12-13 Emergency X Bill COLES [facility] ERT [id number] Univers 23:53:00 01:52:00 ity of [facility] 2021-12-12 2021-12-13 Emergency Bill Coles [facility] 1.2.840.114 95 [id number] Univers 23:53:00 01:52:00 Kiersten BULLOCK 350.1.13.10 i ty of [place] 4.2.7.2.686 [place] [facility] [phone] [facility] 084 Branch 2021-11-20 2021-11-20 Speech Assistant [facility] UNIVERSIT 1.2.840.114 9 [id number] Univers 09:45:00 10:00:00 Visit Santiago Cardenas [facility] 350.1.13.10 ity of CL[place]ICS [place].2.[place] [id number] [facility] 316 Branch 2021-11-20 2021-11-20 Office FRANCO CardenasIT 1.2.716.509 6201 9084 Univers 08:30:00 09:00:00 Visit [facility] 350.1.13.10 i ty of [facility] 4.2.7.2.[place] [phone] [facility] 089 Branch 2021-11-20 2021-11-20 Outpatient R [facility] [id number] Univers 08:30:00 08:30:00 [facility] 2021-11-20 2021-11-20 Outpatient R [facility] [id number] Univers 08:30:00 08:30:00 [facility] 2021-11-20 2021-11-20 Outpatient R [facility] [id number] Univers 08:30:00 08:30:00 [facility] 2021-11-20 2021-11-20 Outpatient R [facility] [id number] Univers 08:30:00 08:30:00 [facility] 2021-10-24 2021-10-24 [facility] [id number] Univers 16:27:00 22:26:00 [facility] 2021-10-24 2021-10-24 Emergency X WALKER [facility] ERT [id number] Univers 16:27:00 [facility]:26[facility] 2021-10-24 2021-10-24 Emergency Reilly Means [facility] 1.2.840. 114 [id number] Univers 16:27:00 22:26:00 Charity Mcallister HU[place] 350.1.13.10 ity [facility] 4.2.7.2.[place] [phone] [facility] 084 Branch 2021-10-23 2021-10-24 Emergency X WALKER [facility] ERT [id number] Univers 20:22:00 02:57:00 [facility] 2021-10-23 2021-10-24 [facility] 1.2.254.130 3688 [id number] Univers 20:22:00 02:57:00 Charity BULLOCK 350.1.13.10 ity of [place] 4.2.7.2.686 [facility] [phone] [place] 837544 Conde 2021-09-07 2021-09-07 Outpatient R SELF, [facility] [id number] Univers 08:00:00 08:00:00 GADIEL ity o f [facility] 2021-09-07 2021-09-07 Outpatient R SELF, [facility] [id number] Univers 08:00:00 08:00:00 GADIEL barbosa o [facility] 2021-08-21 2021-08-21 Outpatient R [facility] [id number] Univers 10:45:00 10:45:00 SANTIAGO barbosa [facility] 2021-08-21 2021-08-21 Speech Assistant Santiago Cardenas 1.2.840.1 [id number] Univers 10:45:00 10:45:00 Visit c-Lab 09615.1.1 ity of 3.104.2.7 [place] .3.790120 Medica l .8 [place] 2021-08-21 2021-08-21 Office East, 1.2.840.2 [id number] 516 Univers 08:30:00 09:00:00 Visit Santiago 86152.1.1 ity of 3.104.2.7 [place] .3.119952 Medica l .8 Con[place] 2021-08-21 2021-08-21 Office East, UNIVERSIT 1.2.616.875 5909 8516 Univers 08:30:00 09:00:00 Visit Santiago [facility] 350.1.13.10 i ty of [facility] 4.2.7.2.686 [facility] [place] [facility] [phone] [place] 837549 Conde 2021-08-21 2021-08-21 Outpatient R [facility] [id number] Univers 08:30:00 08:30:00 SANTIAGO barbosa [facility] 2021-08-21 2021-08-21 Travel 1.2.840.1 1.2.004.976 3301 3865 Univers 00:00:00 00:00:00 37757.1.1 350.1.13.10 ity of 3.104.2.7 4.2.7.3.698 [place] .3.384219 084.8 Medica l .8 [place] 2021-08-14 2021-08-14 Telephone East, 1.2.840.4 [id number] 922 [id number] Univers 00:00:00 00:00:00 Santiago 47890.1.1 ity of 3.104.2.7 [place] .3.599486 Medica l .8 Con[place] 2021-08-13 2021-08-13 Telephone East, 1.2.840.1 [id number] Univers 00:00:00 00:00:00 Santiago 40989.1.1 ity of 3.104.2.7 [place] .3.294674 Medica l .8 Con[place] 2021-08-11 2021-08-11 Outpatient [facility] [id number] Univers 08:00:00 08:00:00 [facility] 2021-08-05 2021-08-05 [facility] [id number] [facility] 05:24:00 05:24:[address] [place] [address] 2021-07-20 2021-07-20 Outpatient [facility] [id number] Univers 10:00:00 10:00:00 [facility] 2021-07-14 2021-07-14 Office Pankaj, UTP 6400 1.2.840.114 13 [id number] NM 08:45:00 09:34:[address] 350.1.13.58 Health 9.2.7.2.686 [id number] 1 2021-07-09 2021-07-09 Telephone Ap, UTP 6400 1.2.840.114 [id number] NM 00:00:00 00:00:[address] 350.1.13.58 Health 9.2.7.2.686 [id number] 1 2021-07-09 2021-07-09 Telephone Hematpour, UTP 6400 1.2.840.114 [id number] NM 00:00:00 00:00:[address] 350.1.13.58 Health 9.2.7.2.686 [id number] 1 2021-07-03 2021-07-03 Outpatient R EAST, [facility] [id number] Univers 08:00:00 08:00:00 SANTIAGO maciely [facility] 2021-06-17 2021-06-17 Inpatient RAUL Lund, [facility] INTE.02 [id number] [facility] 10:56:00 14:36:[address] [place] [address] 2021-06-15 2021-06-15 Outpatient R SELF, [facility] [id number] Univers 10:15:00 11:07:21 [facility] 2021-06-15 2021-06-15 Outpatient R SELF, [facility] [id number] Univers 10:15:00 10:15:00 [facility] 2021-06-15 2021-06-15 Outpatient R SELF, [facility] [id number] Univers 10:15:00 10:15:00 [facility] 2021-06-15 2021-06-15 Orders Doctor 1.2.840.2 [id number] Univers 00:00:00 00:00:00 Only Unassigned, 49613.1.1 ity of [place] 3.104.2.7 [place] .3.247866 Medica l .8 Conde 2021-06-15 2021-06-15 Travel 1.2.840.1 1.2.126.822 2953 7719 Univers 00:00:00 00:00:00 62778.1.1 350.1.13.10 ity of 3.104.2.7 4.2.7.3.698 [place] .3.692387 084.8 Medica l .8 Branch 2021-06-11 2021-06-11 RefJOSÉ ANTONIO Medrano 1.2.451.807 7391 9185 Univers 00:00:00 00:00:00 [facility] 350.1.13.10 i ty of CL[place]ICS [place].2.[place] [id number] [address] 2021-06-11 2021-06-11 Refill East, 1.2.840.0 [id number] 05245 185 Univers 00:00:00 00:00:00 Santiago 09444.1.1 ity of 3.104.2.7 [place] .3.022282 Medica l .8 Con[place] 2021-06-05 2021-06-05 Outpatient R [facility] [id number] Univers 09:00:00 09:00:00 SANTIAGO ity of [facility] 2021-06-02 2021-06-02 Telephone [facility], UNIVERSIT 1.2.840.114 90 [id number] Univers 00:00:00 00:00:00 [facility] 350.1.13.10 i ty of [place].2.[place] [id number] [address] 2021-06-02 2021-06-02 Telephone East, 1.2.840.8 [id number] 903 13262 Univers 00:00:00 00:00:00 Santiago 79687.1.1 ity of 3.104.2.7 [place] .3.537715 Medica l .8 Con[place] 2021-05-29 2021-05-29 Telephone East, 1.2.840.7 [id number] 902 [id number] Univers 00:00:00 00:00:00 Santiago 56209.1.1 ity of 3.104.2.7 [place] .3.083795 Medica l .8 Branch 2021-05-29 2021-05-29 Telephone East, 1.2.840.7 [id number] 902 [id number] Univers 00:00:00 00:00:00 Santiago 98487.1.1 ity of 3.104.2.7 [place] .3.009957 Medica l .8 Branch 2021-05-25 2021-05-25 Outpatient R [facility] [id number] Univers 08:00:00 08:00:00 GADIEL vogel [facility] 2021-04-29 2021-04-29 Outpatient R LALA, [facility] [id number] Univers 08:00:00 08:00:00 NIKOLAI barbosa [facility] 2021-04-28 2021-04-28 Telephone Ap [facility] 6400 1.2.840.114 [id number] NM 00:00:00 00:00:[address] 350.1.13.58 Health 9.2.7.2.686 [id number] 1 2021-04-28 2021-04-28 Telephone Jailyn 1.2.840.2 [id number] 21 [id number] Methodi 00:00:00 00:00:[address] 3.430.2.7 Hospit a .3.879182 l .8 2021-03-31 2021-03-31 Orders Carol Ann 1.2.840.1 [id number] 21 [id number] Methodi 00:00:00 00:00:00 Only Sarai Lieberman 66731.1.1 979 s t 3.430.2.7 Hospit a .3.266492 l .8 2021-03-30 2021-03-30 Outpatient R RODO, [facility] [id number] Univers 08:45:00 08:45:00 GADIEL familia rodas [facility] 2021-03-24 2021-03-24 Telephone Jailyn 1.2.840.8 [id number] 21 [id number] Methodi 00:00:00 00:00:[address] 3.430.2.7 Hospit a .3.899434 l .8 2021-02-13 2021-02-13 Telephone Ronald 1.2.840.9 [id number] 876 91611 Univers 00:00:00 00:00:00 Santiago 34941.1.1 ity 3.104.2.7 [place] .3.552662 Medica l .8 Con[place] 2021-01-28 2021-01-28 Laure REEVES, [facility] [id number] Univers 08:45:00 09:37:00 NIKOLAI ity of [facility] 2021-01-28 2021-01-28 Travel 1.2.840.1 1.2.028.512 6957 9777 Univers 00:00:00 00:00:00 43788.1.1 350.1.13.10 ity of 3.104.2.7 4.2.7.3.698 [place] .3.865374 084.8 Medica l .8 Branch 2021-01-19 2021-01-19 Telephone Prabhu, 1.2.840.1 [id number] 2100 176572 Method 00:00:00 00:00:[address] 3.430.2.7 Hospit a .3.693300 l .8 2021-01-04 2021-01-04 Dmitry Bass, 1.2.840.8 [id number] 59076 696 Univers 00:00:00 00:00:00 (Out) Dagoberto H 33696.1.1 ity of 3.104.2.7 [place] .3.997099 Medica l .8 Branch 2021-01-04 2021-01-04 Dmitry Bass, 1.2.840.4 [id number] 39447 696 Univers 00:00:00 00:00:00 (Out) Dagoberto H 99236.1.1 ity of 3.104.2.7 [place] .3.371705 Medica l .8 Branch 2021-01-03 2021-01-03 Dmitry Bass, 1.2.840.2 [id number] 45735 790 Univers 00:00:00 00:00:00 (Out) Dagoberto H 14810.1.1 ity of 3.104.2.7 [place] .3.770015 Medica l .8 Branch 2021-01-03 2021-01-03 Dmitry Bass, 1.2.840.8 [id number] 75401 790 Univers 00:00:00 00:00:00 (Out) Dagoberto H 81714.1.1 ity of 3.104.2.7 [place] .3.649470 Medica l .8 Branch 2021-01-02 2021-01-02 Outpatient R [facility] [id number] 786 Univers 13:40:00 13:40:00 ity of [facility] 2021-01-02 2021-01-02 Laboratory [place] Franks 1.2.840.1 [id number] [id number] Univers 12:14:13 12:57:34 Only Lab, [place] 38783.1.1 ity of 3.104.2.7 [place] .3.774543 Medica l .8 Branch 2021-01-02 2021-01-02 Laboratory [place] Franks 1.2.840.3 [id number] 2228 [id number] Univers 12:14:13 12:57:34 Only Lab, Adc Fam Pob I 01201.1.1 ity of 3.104.2.7 [place] .3.179219 Medica l .8 Branch 2021-01-02 2021-01-02 Travel 1.2.840.1 1.2.556.035 7963 2306 Univers 00:00:00 00:00:00 32439.1.1 350.1.13.10 ity of 3.104.2.7 4.2.7.3.698 [place] .3.427158 084.8 Medica l .8 Branch 2021-01-02 2021-01-02 Letter Doctor 1.2.840.0 [id number] 98517 948 Univers 00:00:00 00:00:00 (Out) Unassigned, 33172.1.1 ity of [place] 3.104.2.7 [place] .3.786272 Medica l .8 Branch 2021-01-02 2021-01-02 Letter Doctor 1.2.840.8 [id number] 07127 946 Univers 00:00:00 00:00:00 (Out) Unassigned, 48494.1.1 ity of [place] 3.104.2.7 [place] .3.116806 Medica l .8 Branch 2021-01-02 2021-01-02 Travel 1.2.840.1 1.2.633.976 0422 2306 Univers 00:00:00 00:00:00 11005.1.1 350.1.13.10 ity of 3.104.2.7 4.2.7.3.698 [place] .3.572418 084.8 Medica l .8 [place] 2021-01-02 2021-01-02 Letter Doctor 1.2.840.6 [id number] 04360 948 Univers 00:00:00 00:00:00 (Out) Unassigned, 37241.1.1 ity of [place] 3.104.2.7 [place] .3.684655 Medica l .8 Con[place] 2021-01-02 2021-01-02 Letter Doctor 1.2.840.4 [id number] 63265 946 Univers 00:00:00 00:00:00 (Out) Unassigned, 33143.1.1 ity of [place] 3.104.2.7 [place] .3.070606 Medica l .8 Con[place] 2020-12-22 2020-12-22 Telephone Betlran, 1.2.840.6 [id number] 862 43864 Univers 00:00:00 00:00:00 Devina R 40255.1.1 i ty of 3.104.2.7 [place] .3.196517 Medica l .8 Con[place] 2020-12-22 2020-12-22 Telephone Beltran, 1.2.840.6 [id number] 862 14833 Univers 00:00:00 00:00:00 Eligionda R 26800.1.1 i ty of 3.104.2.7 [place] .3.387863 Medica l .8 Conde 2020-12-12 2020-12-12 Office Hematpour, UTP 6400 1.2.840.114 12 [id number] 07:42:02 08:18:50 Visit Beverly PAKN 350.1.13.58 9.2.7.2.686 [id number] 1 2020-12-12 2020-12-12 Office Hematpour, UTP 6400 1.2.840.114 12 [id number] NM 07:42:02 08:18:[address] 350.1.13.58 Health 9.2.7.2.686 112.7655784 1 2020-12-09 2020-12-09 Telephone Carol Ann, 1.2.840.1 [id number] Methodi 00:00:00 00:00:00 Sarai Corbin. 25562.1.1 316 s t 3.430.2.7 Hospit a .3.111135 l .8 2020-12-08 2020-12-08 [facility], 1.2.840.1 [id number] 2100 920150 Methodi 12:35:54 23:59:00 Encounter Ray 97029.1.[address] 3.430.2.7 Hospit a .3.844178 l .8 2020-12-08 2020-12-08 Lab [facility], 1.2.840.1 [id number] 48475 10349 Methodi 17:25:00 17:30:[address] 3.430.2.7 Hospit a .3.247651 l .8 2020-12-08 2020-12-08 [facility], 1.2.840.1 [id number] 31507 69212 Methodi 10:30:00 11:39:56 Visit Ray 36312.1.[address] 3.430.2.7 Hospit a .3.147761 l .8 2020-12-08 2020-12-08 Travel 1.2.840.1 1.2.381.056 4053 245406 Methodi 00:00:00 00:00:[address] 3.430.2.7 0.2.7.3.698 Ho spita .3.221281 084.8 l .8 2020-12-02 2020-12-02 Speech Assistant Santiago Cardenas 1.2.840.1 [id number] [facility] 10:20:06 10:36:19 Visit [facility] 51907.1.1 ity of 3.104.2.7 [place] .3.528809 Medica l .8 Con[place] 2020-12-02 2020-12-02 Speech Assistant Santiago Cardenas 1.2.840.1 [id number] 316 [id number] [facility] 10:20:06 10:36:19 Visit [facility] 54763.1.1 ity of 3.104.2.7 [place] .3.083057 Medica l .8 Conde 2020-12-02 2020-12-02 Speech Assistant [facility] UNIVERSIT 1.2.840.114 8 [id number] 10:20:06 10:36:19 Visit HEALTH 350.1.13.10 CLINICS 4.2.7.2.686 552.4793620 [facility] 2020-12-02 2020-12-02 Office Ronald, 1.2.840.8 [id number] 94361 528 Univers 08:31:37 09:01:37 Visit Santiago 67469.1.1 ity of 3.104.2.7 [place] .3.144600 Medica l .8 Conde 2020-12-02 2020-12-02 Outpatient R [facility] [id number] Univers 09:00:00 09:00:00 SANTIAGO barbosa of [facility] 2020-11-25 2020-11-25 Office Devin, 1.2.840.6 [id number] 20920 865 [facility] 11:06:30 11:58:14 Visit Robbi Hairston 20522.1.1 i ty of 3.104.2.7 [place] .3.897434 Medica l .8 Conde 2020-11-25 2020-11-25 Office Devin, 1.2.840.3 [id number] 68050 865 Univers 11:06:30 11:58:14 Visit Robbi Hairston 33609.1.1 i ty of 3.104.2.7 [place] .3.462351 Medica l .8 Conde 2020-11-25 2020-11-25 [facility] 1.2.840.114 [id number] 11:06:30 11:58:14 Visit Robbi Hairston PERSONNEL COORDINATOR 350.1.13.10 REGIONAL 4.2.7.2.686 MATERNAL [id number] & CHILD [address] [place] [address] 2020-11-25 2020-11-25 Outpatient R [facility] [id number] Univers 11:00:00 11:00:00 ity of [facility] 2020-11-25 2020-11-25 Telephone Devin, 1.2.840.4 [id number] 855 [id number] Univers 00:00:00 00:00:00 Robbi Hairston 29773.1.1 i ty of 3.104.2.7 [place] .3.391015 Medica l .8 Conde 2020-11-25 2020-11-25 Refill East, 1.2.840.1 [id number] 14513 592 Univers 00:00:00 00:00:00 Santiago 24116.1.1 ity of 3.104.2.7 [place] .3.461363 Medica l .8 Conde 2020-11-25 2020-11-25 Travel 1.2.840.1 1.2.694.224 3880 0247 Univers 00:00:00 00:00:00 19585.1.1 350.1.13.10 ity of 3.104.2.7 4.2.7.3.698 [place] .3.124941 084.8 Medica l .8 [place] 2020-11-25 2020-11-25 Orders Doctor 1.2.840.3 [id number] 62652 064 Univers 00:00:00 00:00:00 Only Unassigned, 01481.1.1 ity of [place] 3.104.2.7 [place] .3.060160 Medica l .8 Conde 2020-11-25 2020-11-25 Telephone Devin, 1.2.840.9 [id number] 855 85249 Univers 00:00:00 00:00:00 Robbi Hairston 74625.1.1 i ty of 3.104.2.7 [place] .3.818567 Medica l .8 Conde 2020-11-25 2020-11-25 Refill East, 1.2.840.5 [id number] 29470 592 Univers 00:00:00 00:00:00 Santiago 41578.1.1 ity of 3.104.2.7 [place] .3.114271 Medica l .8 Branch 2020-11-25 2020-11-25 Travel 1.2.840.1 1.2.178.180 5643 0247 Univers 00:00:00 00:00:00 23095.1.1 350.1.13.10 ity of 3.104.2.7 4.2.7.3.698 [place] .3.504019 084.8 Medica l .8 Branch 2020-11-25 2020-11-25 Orders Doctor 1.2.840.4 [id number] 63812 064 Univers 00:00:00 00:00:00 Only Unassigned, 02991.1.1 ity of [place] 3.104.2.7 [place] .3.653069 Medica l .8 Branch 2020-11-25 2020-11-25 [facility] 1.2.735.911 6535 4592 00:00:00 00:00:00 [facility] 350.1.13.10 [facility] 4.2.7.2.686 601.2060458 089 2020-11-25 2020-11-25 Telephone [facility] 1.2.019.445 8139 0821 00:00:00 00:00:00 Robbi Hairston PERSONNEL COORDINATOR 350.1.13.10 [facility] 4.2.7.2.686 MATERNAL 360.0176593 & CHILD [address] [place] [address] 2020-11-14 2020-11-14 Abstract Clark 1.2.840.1 [id number] 75114 54598 Methodi 00:00:00 00:00:[address] 3.430.2.7 Hospit a .3.981466 l .8 2020-11-14 2020-11-14 Telephone Clark 1.2.840.1 [id number] 2100 966047 Methodi 00:00:00 00:00:[address] 3.430.2.7 Hospit a .3.212628 l .8 2020-11-12 2020-11-12 Outpatient R RONALD [facility] [id number] Univers 08:30:00 08:30:00 SANTIAGO ity of [facility] 2020-11-07 2020-11-07 Telephone KIMBERLEY Ortiz 6400 1.2.840.114 124 [id number] 00:00:00 00:00:[address] 350.1.13.58 9.2.7.2.686 936.3488763 1 2020-11-07 2020-11-07 Telephone Agustina Ortiz UTP 6400 1.2.840.11 4 [id number] NM 00:00:00 00:00:[address] 350.1.13.58 Health 9.2.7.2.686 186.4598752 1 2020-10-31 2020-10-31 Office Hematpour KIMBERLEY 6400 1.2.840.114 12 [id number] NM 07:54:00 09:45:[address] 350.1.13.58 Health 9.2.7.2.686 189.0273953 1 2020-10-30 2020-10-30 Abstract Rody Maguire UTP 6400 1.2.840.1 14 [id number] NM 00:00:00 00:00:[address] 350.1.13.58 Health 9.2.7.2.686 994.6564481 1 2020-10-29 2020-10-29 Refill East, 1.2.840.6 [id number] 43740 400 Univers 00:00:00 00:00:00 Santiago 97816.1.1 ity of 3.104.2.7 [place] .3.546912 Medica l .8 Branch 2020-10-29 2020-10-29 Refill East, 1.2.840.3 [id number] 31692 400 Univers 00:00:00 00:00:00 Santiago 20984.1.1 ity of 3.104.2.7 [place] .3.475368 Medica l .8 Branch 2020-10-27 2020-10-27 Telephone Jailyn, 1.2.840.2 [id number] 21 [id number] Methodi 00:00:00 00:00:[address] 3.430.2.7 Hospit a .3.542573 l .8 2020-10-24 2020-10-24 Telephone Clark, 1.2.840.1 [id number] 2100 016752 Methodi 00:00:00 00:00:[address] 3.430.2.7 Hospit a .3.225711 l .8 2020-10-22 2020-10-22 Outpatient R SELF, [facility] [id number] 868 Univers 13:00:00 13:00:00 GADIEL barbosa [facility] 2020-10-22 2020-10-22 Travel 1.2.840.1 1.2.700.286 [id number] Univers 00:00:00 00:00:00 21814.1.1 350.1.13.10 ity of 3.104.2.[place] .3.956471 084.8 Medica l .8 [place] 2020-10-22 2020-10-22 Travel 1.2.840.1 1.2.532.624 5773 3839 Univers 00:00:00 00:00:00 83847.1.1 350.1.13.10 ity of 3.104.2[place] .3.088565 084.8 Medica l .8 [place] 2020-10-13 2020-10-13 Outpatient R SELF, [facility] [id number] Univers 08:45:00 08:45:00 GADIEL barbosa [facility] 2020-10-06 2020-10-12 Telemedici Cadea, 1.2.840.1 [id number] Methodi 15:30:00 00:08:46 ne Ray 18740.1.[address] 3.430.2.7 Hospit a .3.417686 l .8 2020-09-30 2020-09-30 [facility], 1.2.840.2 [id number] 21 [id number] Methodi 00:00:00 00:00:[address] 3.430.2.7 Hospit a .3.856844 l .8 2020-09-21 2020-09-21 [facility] 1.2.840.1 1.2.804.046 [id number] [id number] Methodi 00:00:00 00:00:[address] 3.430.2.7 0.2.7.3.698 Ho spita .3.631186 084.8 l .8 2020-09-06 2020-09-06 [facility] 1.2.840.1 [id number] 09869 [id number] Methodi 17:42:30 23:59:[address] 3.430.2.7 Hospit a .3.254510 l .8 2020-09-06 2020-09-06 [facility], 1.2.840.1 [id number] [id number] Methodi 16:50:00 17:41:00 Encounter Ray [address]361.1.[address] 3.430.2.7 Hospit a .3.124047 l .8 2020-09-05 2020-09-05 [facility], 1.2.840.1 [id number] 2099 [id number] Methodi 09:17:00 19:45:00 Encounter Ray [address]26.1.[address] 3.430.2.7 Hospit a .3.939538 l .8 2020-09-05 2020-09-05 [facility], 1.2.840.1 [id number] Methodi 11:30:00 13:15:[address] 3.430.2.7 Hospit a .3.042082 l .8 2020-09-05 2020-09-05 Anesthesia [facility], 1.2.840.1 [id number] [id number] Methodi 11:27:00 12:20:00 Event Kirit 96913.1.1 243 s t V. 3.430.2.7 Hospit a .3.984792 l .8 2020-09-05 2020-09-05 Travel 1.2.840.1 1.2.616.544 9346 [id number] Methodi 00:00:00 00:00:[address] 3.430.2.7 0.2.7.3.698 Ho spita .3.086660 084.8 l .8 2020-09-04 2020-09-04 Telephone Meisenbach, 1.2.840.1 [id number] Methodi 00:00:00 00:00:00 Sarai Lieberman 31440.1.1 762 s t 3.430.2.7 Hospit a .3.349415 l .8 2020-09-02 2020-09-02 Telephone Meisenbach, 1.2.840.3 [id number] Methodi 00:00:00 00:00:00 Sarai Lieberamn 56602.1.1 344 s t 3.430.2.7 Hospit a .3.931683 l .8 2020-08-29 2020-08-30 [id number] [facility] 10:20:00 14:10:00 Outpatient r Luxora 00 l [facility] 2020-08-29 2020-08-30 Outpatient HEMATPOUR, [facility] CAR 7500 [facility] 05:20:00 09:10:00 BEVERLY 2020-08-06 2020-08-06 Office [place], 1.2.840.5 [id number] [facility] 08:03:23 09:17:49 Visit Santiago 08872.1.1 familia 3.104.2.7 [place] .3.953454 Medica l [address] 2020-08-06 2020-08-06 Outpatient R RONALD [facility] [id number] [facility] 08:30:00 08:30:00 SANTIAGO barbosa of [facility] 2020-07-14 2020-07-14 [facility] [id number] Univers 09:30:00 09:30:00 GADIEL rodas [facility] 2020-07-14 2020-07-14 Travel 1.2.840.1 1.2.177.669 6759 [id number] Univers 00:00:00 00:00:00 62029.1.1 350.1.13.10 ity of 3.104.2.7 4[place].3.698 [place] .3.830326 084.8 Medica l .8 [place] 2020-07-14 2020-07-14 Orders Doctor 1.2.840.8 [id number] Univers 00:00:00 00:00:00 Only Unassigned, 86680.1.1 ity of [place] 3.104.2.7 [place] .3.188037 Medica l .8 [place] 2020-06-16 2020-06-16 Outpatient R [facility] [id number] Univers 08:00:00 08:00:00 GADIEL rodas [facility] 2020-06-06 2020-06-06 Telephone [place], 1.2.840.7 [id number] Univers 00:00:00 00:00:00 [place] 60468.1.1 ity of 3.104.2.7 [place] .3.252018 Medica l .8 [place] 2020-06-04 2020-06-04 Speech Assistant Santiago Cardenas 1.2.840.1 [id number] Univers 09:31:58 09:40:12 Visit [facility] 11581.1.1 ity of 3.104.2.7 [place] .3.729163 Medica l .8 [place] 2020-06-04 2020-06-04 Office JOSÉ ANTONIO Cardenas 1.2.249.549 [id number] Univers 08:13:41 09:28:25 Visit [place] [facility] 350.1.13.10 i ty of [place] [id number] [facility] porfirio 089 [place] 2020-06-04 2020-06-04 [id number] Univers 08:30:00 08:30:00 SANTIAGO ity [facility] 2020-06-04 2020-06-04 Orders Doctor 1.2.840.4 [id number] Univers 00:00:00 00:00:00 Only Unassigned, 57389.1.1 ity of [place] 3.104.2.7 [place] .3.901690 Medica l .8 [place] 2020-05-19 2020-05-19 Telephone East, 1.2.840.9 [id number] Univers 00:00:00 00:00:00 [place] 84783.1.1 ity of 3.104.2.7 [place] .3.376168 Medica l .8 [place] 2020-04-24 2020-04-24 Telephone East, 1.2.840.3 [id number] Univers 00:00:00 00:00:00 [place] 29143.1.1 ity of 3.104.2.7 [place] .3.160599 Medica l .8 [place] 2020-04-14 2020-04-14 Outpatient R [facility] [id number] Univers 09:00:00 09:00:00 SANTIAGO barbosa [facility] 2020-04-14 2020-04-14 Telephone East, 1.2.840.3 [id number] Univers 00:00:00 00:00:00 [place] 31246.1.1 ity of 3.104.2.7 [place] .3.397002 Medica l .8 [place] 2020-03-31 2020-03-31 Outpatient R [facility] [id number] Univers 08:30:00 08:30:00 SANTIAGO ity [facility] 2020-03-03 2020-03-03 Outpatient R SELF, [facility] [id number] Univers 08:00:00 08:00:00 GADIEL rodas [facility] 2020-03-03 2020-03-03 Outpatient R SELF, [facility] [id number] Univers 08:00:00 08:00:00 GADIEL rodas [facility] 2020-03-03 2020-03-03 Travel 1.2.840.1 1.2.465.151 [id number] Univers 00:00:00 00:00:00 45536.1.1 350.1.13.10 ity of 3.104.2.7 4[place].3.698 [place] .3.9045[place] 084.8 Medica l .8 [place] 2020-02-06 2020-02-06 Telephone East, 1.2.840.0 [id number] Univers 00:00:00 00:00:00 [place] 45816.1.1 ity of 3.104.2.7 [place] .3.195929 Medica l .8 [place] 2020-01-26 2020-01-26 Emergency Caridad, 1.2.840.7 [id number] Univers 10:03:00 13:05:00 Cynise 85663.1.1 ity of 3.104.2.7 [place] .3.578310 Medica l .8 [place] 2020-01-26 2020-01-26 Travel 1.2.840.1 1.2.465.297 [id number] Univers 00:00:00 00:00:00 79135.1.1 350.1.13.10 ity of 3.104.2.7 4[place].3.698 [place] .3.460[place] 084.8 Medica l .8 [place] 2020-01-25 2020-01-25 Outpatient R [facility] [id number] Univers 08:30:00 08:30:00 SANTIAGO ity of [facility] 2020-01-25 2020-01-25 Telemedici East, 1.2.840.5 [id number] Univers 07:36:49 08:06:49 ne Visit Sanitago 07522.1.1 ity of 3.104.2.7 [place] .3.274673 Medica l .8 [place] 2020-01-16 2020-01-16 Outpatient R [facility] [id number] Univers 08:00:00 08:00:00 SANTIAGO ity of [facility] 2020-01-16 2020-01-16 Telephone East, 1.2.840.3 [id number] Univers 00:00:00 00:00:00 [place] 85570.1.1 ity of 3.104.2.7 [place] .3.113607 Medica l .8 [place] 2020-01-14 2020-01-14 Outpatient R SELF, [facility] [id number] Univers 08:00:00 08:00:00 GADIEL barbosa o clark [facility] 2019-12-31 2019-12-31 Outpatient R SELF, [facility] [id number] Univers 08:45:00 08:45:00 GADIEL barbosa o clark [facility] 2019-10-17 2019-10-17 Outpatient R EAST, [facility] [id number] Univers 08:30:00 08:30:00 SANTIAGO familia [facility] 2019-10-12 2019-10-12 Outpatient R EAST, [facility] [id number] Univers 13:00:00 13:00:00 SANTIAGO ity [facility] 2019-10-12 2019-10-12 Telemedici East, 1.2.840.1 [id number] Univers 07:38:30 08:08:30 ne Visit Santiago 67258.1.1 ity of 3.104.2.7 [place] .3.290743 Medica l .8 [place] 2019-10-08 2019-10-08 Outpatient R SELF, [facility] [id number] Univers 10:15:00 10:15:00 GADIEL rodas [facility] 2019-10-03 2019-10-03 Case Assman, 1.2.840.2 [id number] Univers 00:00:00 00:00:00 Management Michael Corbin 68440.1.1 i ty of 3.104.2.7 [place] .3.836780 Medica l .8 [place] 2019-09-27 2019-09-27 Telephone East, 1.2.840.2 [id number] Univers 00:00:00 00:00:00 [place] 30480.1.1 ity of 3.104.2.7 [place] .3.748762 Medica l .8 [place] 2019-09-04 2019-09-04 Refill East, 1.2.840.0 [id number] Univers 00:00:00 00:00:00 [place] 21564.1.1 ity of 3.104.2.7 [place] .3.482194 Medica l .8 [place] 2019-07-24 2019-07-24 Outpatient R [facility] [id number] Univers 08:30:00 08:30:00 SANTIAGO ity [facility] 2019-07-17 2019-07-17 Outpatient R [facility] [id number] Univers 10:00:00 10:00:00 SANTIAGO ity [facility] 2019-06-15 2019-06-15 Telephone East, 1.2.840.3 [id number] Univers 00:00:00 00:00:00 [place] 55073.1.1 ity of 3.104.2.7 [place] .3.118574 Medica l .8 [place] 2019-06-13 2019-06-13 Telephone Team, [facility] 1.2.840.6 [id number] Univers 00:00:00 00:00:00 Health 16959.1.1 [place] .3.102956 Medica l .8 [place] 2019-05-10 2019-05-10 Refill Ronald, 1.2.840.9 [id number] Univers 00:00:00 00:00:00 [place] 76636.1.1 ity of 3.104.2.7 [place] .3.740089 Medica l .8 [place] 2019-05-09 2019-05-09 Refill Ronald, 1.2.840.5 [id number] Univers 00:00:00 00:00:00 [place] 88633.1.1 ity of 3.104.2.7 [place] .3.442446 Medica l .8 [place] 2019-04-30 2019-04-30 [id number] Univers 10:15:00 10:33:05 GADIEL barbosa o f [facility] 2019-04-18 2019-04-18 Speech Assistant [place] Cardenas 1.2.840.1 [id number] Univers 10:00:39 10:44:31 Visit [facility] 97041.1.1 ity of 3.104.2.7 [place] .3.207848 Medica l .8 [place] 2019-04-18 2019-04-18 Outpatient R RONALD, [facility] [id number] Univers 10:00:00 10:44:31 SANTIAGO ity of [facility] 2019-04-18 2019-04-18 Office East, 1.2.840.9 [id number] Univers 08:27:44 09:53:27 Visit Santiago 26377.1.1 ity of 3.104.2.7 [place] .3.297866 Medica l .8 [place] 2019-04-18 2019-04-18 Orders Doctor 1.2.840.8 [id number] Univers 00:00:00 00:00:00 Only Unassigned, 78812.1.1 ity of [place] 3.104.2.7 [place] .3.179619 Medica l .8 [place] 2019-04-11 2019-04-11 Refill East, 1.2.840.4 [id number] Univers 00:00:00 00:00:00 [place] 73625.1.1 ity of 3.104.2.7 [place] .3.201629 Medica l .8 [place] 2019-04-09 2019-04-09 Refill [facility], 1.2.840.7 [id number] Univers 00:00:00 00:00:00 [place] 20106.1.1 ity of 3.104.2.7 [place] .3.919588 Medica l .8 [place] 2019-04-03 2019-04-03 Telephone Team, [facility] 1.2.840.3 [id number] Univers 00:00:00 00:00:00 Health 32470.1.1 [place] .3.677376 Medica l .8 [place] 2019-03-27 2019-03-27 Telephone Self, 1.2.840.3 [id number] Univers 00:00:00 00:00:00 Gadiel 81402.1.1 ity of 3.104.2.7 [place] .3.939831 Medica l .8 Branch 2019-01-17 2019-01-17 Office Ronald, 1.2.840.5 [id number] Univers 07:37:21 10:32:51 Visit Santiago 95930.1.1 ity of 3.104.2.7 [place] .3.592992 Medica l .8 Branch 2019-01-04 2019-01-12 Office Eveline Hansen 1.2.840.6 [id number] Univers 11:19:32 11:08:05 Visit Mariela 03766.1.1 ity of 3.104.2.7 [place] .3.494801 Medica l .8 Branch 2019-01-10 2019-01-10 Telephone Arabellatejacharlie, 1.2.840.1 [id number] Univers 00:00:00 00:00:00 Eladio Storm 02826.1.1 ity of 3.104.2.7 [place] .3.221364 Medica l .8 Branch 2018-12-18 2018-12-18 Office Geraldine, 1.2.840.4 [id number] Univers 08:48:45 09:13:43 Visit Leyda 56641.1.1 it y of 3.104.2.7 [place] .3.653746 Medica l .8 Branch 2018-10-30 2018-10-30 Telephone [facility], 1.2.840.7 [id number] Univers 00:00:00 00:00:00 [place] 49790.1.1 ity of 3.104.2.7 [place] .3.264752 Medica l .8 Branch 2018-10-23 2018-10-23 Orders Doctor 1.2.840.1 [id number] Univers 00:00:00 00:00:00 Only Unassigned, 58185.1.1 ity of [place] 3.104.2.7 [place] .3.581284 Medica l .8 Branch 2018-10-23 2018-10-23 Nurse Selvin, 1.2.840.4 [id number] Univers 00:00:00 00:00:00 Triage Stefanie 72278.1.1 ity of 3.104.2.7 [place] .3.770324 Medica l .8 Branch 2018-10-23 2018-10-23 Telephone Self, 1.2.840.0 [id number] Univers 00:00:00 00:00:00 Gadiel 07968.1.1 ity of 3.104.2.7 [place] .3.471638 Medica l .8 Branch 2018-10-20 2018-10-20 Telephone Self, 1.2.840.2 [id number] Univers 00:00:00 00:00:00 Gadiel 28782.1.1 ity of 3.104.2.7 [place] .3.352088 Cheria l .8 [place] Results Test Description Test Time Test Comments Results Result Comments Source BASIC METABOLIC PANEL (NA, K, CL, CO2, GLUCOSE, BUN, 2022-04 21:43:42 CREATININE, CA) Test Item Value Reference Range Interpretation Comme nts NA (test code = 1852811344) 142 mmol/L 135-145 K (test code = 3278295967) 3.5 mmol/L 3.5-5.0 CL (test code = 9455233901) 106 mmol/L 98-108 CO2 TOTAL (test code = 9099422979) 26 mmol/L 23-31 AGAP (test code = 8545493867) 2-16 BUN (test code = 1484998723) 29 mg/dL 7-23 H GLUCOSE (test code = 0771285519) 84 mg/dL 70-110 CREATININE (test code = 1.16 mg/dL 0.50-1.04 H 0181398880) CALCIUM (test code = 6269300379) 8.2 mg/dL 8.6-10.6 L eGFR (test code = 6592692616) mL/min/1.73m2 KYLE (test code = KYLE) Association [...] tests). Lab Interpretation (test code = Abnormal 23474-6) [facility] WITH [id number] 21:33:01 Test Item Value Reference Range Interpretation Comments WBC (test code = See_Comment [Automated 8890-2) message] The sy stem which generated this result transmitted reference range : 4.30 - 11.10 10*3/?L. The reference range was not used to interpret this result as normal/abnormal . RBC (test code = See_Comment L [Automated 599-8) message] The sy stem which generated this [...] (test code = 50.7 fL 39.0-49.9 H 57832-4) RDW-CV (test code = 14.6 % 12.0-15.5 788-0) PLT (test code = See_Comment L [Automated 777-3) message] The sy stem which generated this result transmitted reference range : 166 - 358 10*3/ ?L. The reference r abbey was not used to interpret this result as normal/abnormal . MPV (test code = 8.8 fL 9.5-12.9 L 50438-4) NRBC/100 WBC (test See_Comment [Automat ed code = 4933466517) message] The system which generated this result transmitted reference range : 0.0 - 10.0 /100 WBCs. The refer ence range was not u sed to interpret th is result as normal/abnormal . NRBC x10^3 (test code See_Comment [Auto mated = 9638280421) message] The s ystem which generated this result transmitted reference range : 10*3/?L. The reference range was not used to interpret this result as normal/abnormal . GRAN MAT (NEUT) % 70.9 % (test code = 770-8) IMM GRAN % (test code 0.50 % = 4483013722) LYMPH % (test code = 17.4 % 736-9) MONO % (test code = 9.0 % 5905-5) EOS % (test code = 1.7 % 713-8) BASO % (test code = 0.5 % 706-2) GRAN MAT x10^3(ANC) 4.60 10*3/uL 1.88-7.09 (test code = 5107133054) IMM GRAN x10^3 (test 0.03 10*3/uL 0.00-0.06 code = 4905041056) LYMPH x10^3 (test code 1.13 10*3/uL 1.32-3.29 L = 731-0) MONO x10^3 (test code 0.58 10*3/uL 0.33-0.92 = 742-7) EOS x10^3 (test code = 0.11 10*3/uL 0.03-0.39 711-2) BASO x10^3 (test code 0.03 10*3/uL 0.01-0.07 = 704-7) Lab Interpretation Abnormal (test code = 46359-3) [facility] [place] [facility] CULTURE [id number] 06:01:07 Test Item Value Reference Range Interpretation Comments Blood Culture-Aerobic No organisms No growth Previo us (test code = 27304-5) isolated prelim inary verified result was Culture [...] Culture-Anaerobic isolated preliminar y (test code = 22448-1) verifi ed result was Culture In Progress [...] CDT Lab Interpretation Normal (test code = 62434-0) [facility] [place] [facility] CULTURE [id number] 06:01:07 Test Item Value Reference Range Interpretation Comments Blood Culture-Aerobic No organisms No growth Previo us (test code = 66283-2) isolated prelim inary verified result was Culture [...] Culture-Anaerobic isolated preliminar y (test code = 06693-0) verifi ed result was Culture In Progress [...] CDT Lab Interpretation Normal (test code = 89180-1) [facility] [id number] 06:01:07 Test Item Value Reference Range Interpretation Comments Blood Culture-Aerobic No organisms No growth Previo us (test code = 07162-4) isolated prelim inary verified result was Culture [...] Culture-Anaerobic isolated preliminar y (test code = 00480-6) verifi ed result was Culture In Progress [...] CDT Lab Interpretation Normal (test code = 57980-3) [facility] [id number] 10:49:10 Test Item Value Reference Range Interpretation Comments NT-proBNP (test code 2660 pg/mL See_Comment H [Autom ated = 5196488643) message] The system which generated this result transmitted reference range : <=125. The reference range was not used to interpret this result as normal/abnormal . KYLE (test code = KYLE) Biotin has been reported to cause a negative bias, interpret results relative to patient's use of biotin. Lab Interpretation Abnormal (test code = 88662-8) [facility] [id number] 10:49:10 Test Item Value Reference Range Interpretation Comments NT-proBNP (test code 2660 pg/mL See_Comment H [Autom ated = 8740937977) message] The system which generated this result transmitted reference range : <=125. The reference range was not used to interpret this result as normal/abnormal . KYLE (test code = KYLE) Biotin has been reported to cause a negative bias, interpret results relative to patient's use of biotin. Lab Interpretation Abnormal (test code = 63004-1) [facility] METABOLIC PANEL (NA, K, CL, CO2, GLUCOSE, BUN, CREATININE, CA)2022-02-15 10:44:07 Test Item Value Reference Range Interpretation Comments NA (test code = 134 mmol/L 135-145 L 9705006461) K (test code = 3.2 mmol/L 3.5-5 L 0597932883) CL (test code = 98 mmol/L 98-108 8282556771) CO2 TOTAL (test code = 27 mmol/L 23-31 1415757111) AGAP (test code = 2-16 1747897395) BUN (test code = 19 mg/dL 7-23 7959904239) GLUCOSE (test code = 102 mg/dL 70-110 7565666799) CREATININE (test code = 0.95 mg/dL 0.5-1.04 3423698856) CALCIUM (test code = 8.5 mg/dL 8.6-10.6 L 6152925637) eGFR (test code = mL/min/1.73m2 2055227011) KYLE (test code = KYLE) Association of [...] tests). Lab Interpretation Abnormal (test code = 06674-0) [facility] Test Item Value Reference Range Interpretation Comments MAGNESIUM (test code = 1884400322) 1.8 mg/dL 1.7-2.4 Lab Interpretation (test code = Normal 57398-3) [facility]07 Test Item Value Reference Range Interpretation Comments MAGNESIUM (test code = 6056366073) 1.8 mg/dL 1.7-2.4 Lab Interpretation (test code = Normal 72691-9) [facility] (NA, K, CL, CO2, GLUCOSE, BUN, CREATININE, CA)2022-02-15 10:44:07 Test Item Value Reference Range Interpretation Comments NA (test code = 134 mmol/L 135-145 L 4421163699) K (test code = 3.2 mmol/L 3.5-5.0 L 0889601256) CL (test code = 98 mmol/L 98-108 3314917881) CO2 TOTAL (test code = 27 mmol/L 23-31 0598274719) AGAP (test code = 2-16 0482965152) BUN (test code = 19 mg/dL 7-23 1135019174) GLUCOSE (test code = 102 mg/dL 70-110 3043258773) CREATININE (test code = 0.95 mg/dL 0.50-1.04 8521429825) CALCIUM (test code = 8.5 mg/dL 8.6-10.6 L 8355932473) eGFR (test code = mL/min/1.73m2 9292861674) KYLE (test code = KYLE) Association of [...] tests). Lab Interpretation Abnormal (test code = 67733-6) [facility] WITH [id number] 10:12:06 Test Item Value Reference Range Interpretation Comments WBC (test code = See_Comment L [Automated 3347-2) message] The sy stem which generated this result transmitted reference range : 4.30 - 11.10 10*3/?L. The reference range was not used to interpret this result as normal/abnormal . RBC (test code = See_Comment L [Automated 989-8) message] The sy stem which generated this [...] RDW-SD (test code = 47.8 fL 39-49.9 71562-7) RDW-CV (test code = 15.2 % 12-15.5 788-0) PLT (test code = See_Comment L [Automated 777-3) message] The sy stem which generated this result transmitted reference range : 166 - 358 10*3/ ?L. The reference r abbey was not used to interpret this result as normal/abnormal . MPV (test code = 8.9 fL 9.5-12.9 L 15335-0) NRBC/100 WBC (test See_Comment [Automat ed code = 5327387838) message] The system which generated this result transmitted reference range : 0.0 - 10.0 /100 WBCs. The refer ence range was not u sed to interpret th is result as normal/abnormal . NRBC x10^3 (test code See_Comment [Auto mated = 0379771474) message] The s ystem which generated this result transmitted reference range : 10*3/?L. The reference range was not used to interpret this result as normal/abnormal . GRAN MAT (NEUT) % 65.9 % (test code = 770-8) IMM GRAN % (test code 0.30 % = 6425474364) LYMPH % (test code = 21.0 % 736-9) MONO % (test code = 10.1 % 5905-5) EOS % (test code = 2.4 % 713-8) BASO % (test code = 0.3 % 706-2) GRAN MAT x10^3(ANC) 2.49 10*3/uL 1.88-7.09 (test code = 7512553157) IMM GRAN x10^3 (test 0-0.06 code = 6656907218) LYMPH x10^3 (test code 0.79 10*3/uL 1.32-3.29 L = 731-0) MONO x10^3 (test code 0.38 10*3/uL 0.33-0.92 = 742-7) EOS x10^3 (test code = 0.09 10*3/uL 0.03-0.39 711-2) BASO x10^3 (test code 0.01-0.07 = 704-7) Lab Interpretation Abnormal (test code = 09965-9) [facility] WITH [id number] 10:12:06 Test Item Value Reference Range Interpretation [...] RDW-SD (test code = 47.8 fL 39.0-49.9 84100-4) RDW-CV (test code = 15.2 % 12.0-15.5 788-0) PLT (test code = See_Comment L [Automated 777-3) message] The sy stem which generated this result transmitted reference range : 166 - 358 10*3/ ?L. The reference r abbey was not used to interpret this result as normal/abnormal . MPV (test code = 8.9 fL 9.5-12.9 L 69763-0) NRBC/100 WBC (test See_Comment [Automat ed code = 8876680321) message] The system which generated this result transmitted reference range : 0.0 - 10.0 /100 WBCs. The refer ence range was not u sed to interpret th is result as normal/abnormal . NRBC x10^3 (test code See_Comment [Auto mated = 9898144917) message] The s ystem which generated this result transmitted reference range : 10*3/?L. The reference range was not used to interpret this result as normal/abnormal . GRAN MAT (NEUT) % 65.9 % (test code = 770-8) IMM GRAN % (test code 0.30 % = 5267948750) LYMPH % (test code = 21.0 % 736-9) MONO % (test code = 10.1 % 5905-5) EOS % (test code = 2.4 % 713-8) BASO % (test code = 0.3 % 706-2) GRAN MAT x10^3(ANC) 2.49 10*3/uL 1.88-7.09 (test code = 3989450251) IMM GRAN x10^3 (test 0.00-0.06 code = 6035413765) LYMPH x10^3 (test code 0.79 10*3/uL 1.32-3.29 L = 731-0) MONO x10^3 (test code 0.38 10*3/uL 0.33-0.92 = 742-7) EOS x10^3 (test code = 0.09 10*3/uL 0.03-0.39 711-2) BASO x10^3 (test code 0.01-0.07 = 704-7) Lab Interpretation Abnormal (test code = 71889-7) [facility] WITH [id number] 11:18:28 Test Item Value Reference Range Interpretation [...] RDW-SD (test code = 49.5 fL 39-49.9 76607-8) RDW-CV (test code = 15.5 % 12-15.5 788-0) PLT (test code = See_Comment L [Automated 777-3) message] The sy stem which generated this result transmitted reference range : 166 - 358 10*3/ ?L. The reference r abbey was not used to interpret this result as normal/abnormal . MPV (test code = 11.4 fL 9.5-12.9 59606-9) IPF % (test code = 8.7 % 1.3-7.7 H Platelet count 1322099344) measured by fluorescence method. NRBC/100 WBC (test See_Comment [Automat ed code = 4751135911) message] The system which generated this result transmitted reference range : 0.0 - 10.0 /100 WBCs. The refer ence range was not u sed to interpret th is result as normal/abnormal . NRBC x10^3 (test code See_Comment [Auto mated = 8013367541) message] The s ystem which generated this result transmitted reference range : 10*3/?L. The reference range was not used to interpret this result as normal/abnormal . GRAN MAT (NEUT) % 62.0 % (test code = 770-8) IMM GRAN % (test code 0.80 % = 9655135343) LYMPH % (test code = 22.2 % 736-9) MONO % (test code = 9.6 % 5905-5) EOS % (test code = 5.1 % 713-8) BASO % (test code = 0.3 % 706-2) GRAN MAT x10^3(ANC) 2.21 10*3/uL 1.88-7.09 (test code = 8916631660) IMM GRAN x10^3 (test 0.03 10*3/uL 0-0.06 code = 8256068624) LYMPH x10^3 (test code 0.79 10*3/uL 1.32-3.29 L = 731-0) MONO x10^3 (test code 0.34 10*3/uL 0.33-0.92 = 742-7) EOS x10^3 (test code = 0.18 10*3/uL 0.03-0.39 711-2) BASO x10^3 (test code 0.01-0.07 = 704-7) POLYCHROMASIA (test 2+ See_Comment [Automa arpit code = 41213-4) message] The system which generated this result [...] . Lab Interpretation Abnormal (test code = 60860-0) [facility] METABOLIC PANEL (NA, K, CL, CO2, GLUCOSE, BUN, CREATININE, CA)2022-02-13 10:39:07 Test Item Value Reference Range Interpretation Comments NA (test code = 136 mmol/L 135-145 8451025088) K (test code = 4.1 mmol/L 3.5-5 9709113249) CL (test code = 102 mmol/L 98-108 6265256681) CO2 TOTAL (test code = 27 mmol/L 23-31 6319854966) AGAP (test code = 2-16 8320450414) BUN (test code = 22 mg/dL 7-23 5227174237) GLUCOSE (test code = 94 mg/dL 70-110 5350147666) CREATININE (test code = 0.94 mg/dL 0.5-1.04 7797082928) CALCIUM (test code = 8.1 mg/dL 8.6-10.6 L 5322613149) eGFR (test code = mL/min/1.73m2 7003540443) KYLE (test code = KYLE) Association of [...] tests). Lab Interpretation Abnormal (test code = 04019-5) [facility] 01:50:10 Test Item Value Reference Range Interpretation Comments Height (test code = in 1318849457) Weight (test code = lbs 3482341057) Systolic BP (test code mmHg = 8410618127) Diastolic BP (test code mmHg = 2607791293) Heart Rate (test code = bpm 0404452890) BSA (test code = 1.85 m2 5790450421) IVS (test code = 1.22 cm 8628705399) Interventricular Septum 1.22 cm Diastolic Thickness by 2D (test code = 9188957) LVIDD (test code = 5.00 cm 1409798542) Left Ventricular End 117.9 mL Diastolic Volume by Teichholz Method (test code = 3529687) LVPWD (test code = 1.22 cm 5359726157) PW (test code = 1.22 cm 0.6-1.1 3003371225) EF(Teich) (test code = 74.60 % 2557430948) LVIDS (test code = 2.80 cm 2268665694) Left Ventricular End 29.9 mL Systolic Volume by Teichholz Method (test code = 7069152) FS (test code = 44 % 5411002467) EF - 2D (test code = 74.60 % 32540809) LVOT diameter (test 2.16 cm code = 5143944582) LVOT area (test code = 3.70 cm2 7007341906) Ao root diam (test code 3.40 cm = 1980677462) Aortic root (test code 3.4 cm = 1833464101) Ao root annulus (test 3.4 cm code = 6474848016) LA size (test code = 3.4 cm 1563175097) TR Peak Spencer (test code 330.0 cm/s = 6175771277) Triscuspid Valve mmHg Regurgitation Peak Gradient (test code = 8076005655) PV REGURGITATION PEAK mmHg GRADIENT (test code = 1724533344) PI dec slope (test code 137.20 cm/s2 = 7949087786) LAV(MOD-sp4) (test code 102.90 mL = 9701541447) MV Peak E Spencer (test 84.1 cm/s code = 8735651809) MV Peak A Spencer (test 40.1 cm/s code = 8736675719) E/A ratio (test code = ratio 3001090054) MV valve area p 1/2 3.70 cm2 method (test code = 5690604351) MV dec slope (test code 413.00 cm/s2 = 7122111787) MV P1/2t max spencer (test 83.70 cm/s code = 0675938901) MV Prop V (test code = 41.80 cm/s 6692718395) Tapse (test code = 1.83 cm 9669981284) LVOT stroke volume 96.90 cm3 (test code = 5982842327) LVOT peak spencer (test 125.5 cm/s code = 6005167634) LVOT mn grad (test code mmHg = 2436936486) AV LVOT peak gradient mmHg (test code = 7364048621) LVOT peak VTI (test 26.4 cm code = 4722793458) LV V1 mean (test code = 78.10 cm/s 1684524840) Aortic valve mean 103.7 cm/s velocity (test code = 1783617743) Ao peak spencer (test code 165.6 cm/s = 0008555056) Ao VTI (test code = 37.2 cm 1217323112) AV area by cont VTI 2.6 cm2 (test code = 2841070876) AV area peak spencer (test 2.8 cm2 code = 7345048433) Ao max PG (test code = 11.00 mm[Hg] 0307702922) AV peak gradient (test mmHg code = 8475753223) AV valve area (test 2.60 cm2 code = 1943062978) AV mean gradient (test mmHg code = 2888661822) LA Volume Index (BP) 55.2 mL/m2 (test code = 8545740902) LA volume (BP) (test 102.1 mL code = 3882369828) LAV(MOD-sp2) (test code 86.10 mL = 2070317099) A2C EF (test code = 61.20 % 8194425479) EF(sp2-el) (test code = 61.60 % 4937341435) SV(MOD-sp2) (test code 47.10 mL = 8259618486) LV Diastolic Volume 70.7 mL (BP) (test code = 0082492657) A4C EF (test code = 53.00 % 7059263355) EF(MOD-bp) (test code = 56.70 % 1769538777) EF(sp4-el) (test code = 53.90 % 6939722902) LV Systolic Volume (BP) 30.6 mL (test code = 2624478721) SV(MOD-bp) (test code = 40.10 mL 7354200833) SV(MOD-sp4) (test code 32.40 mL = 1444526271) SV(sp4-el) (test code = 33.10 mL 9385587167) EF (test code = 2231174718) Left Ventricular Stroke 40.1 mL Volume by 2-D Biplane-MOD (test code = 7276009) LV Diastolic Volume 38.2 mL/m2 Index (BP) (test code = 9657166301) LV Systolic Volume 16.5 mL/m2 Index (BP) (test code = 2623329225) Radiology Study observation (narrative) (test code = 07864-6) KYLE (test code = KYLE) ?Left?Ventricle: Left [...] 1.00The left ventricular wall motion is normal. [id number] 05:45:01 Test Item Value Reference Interpretation Comments Range TROPONIN I (test See_Comment [Automated code = 7617362696) message] The system which generated this result [...] biotin. Lab Interpretation Normal (test code = 00105-7) [facility] CenterN[facility]AL AXW-[id number] 05:41:40 Test Item Value Reference Range Interpretation Comments NT-proBNP (test code 4250 pg/mL See_Comment H [Autom ated = 7380308449) message] The system which generated this result transmitted reference range : <=125. The reference range was not used to interpret this result as normal/abnormal . KYLE (test code = KYLE) Biotin has been reported to cause a negative bias, interpret results relative to patient's use of biotin. Lab Interpretation Abnormal (test code = 93161-0) [facility] CenterACTIV[facility] PARTIAL THRMPLAS [id number] 05:35:21 Test Item Value Reference Range Interpretation [...] seconds. Lab Interpretation Normal (test code = 60775-6) [facility]ACT[facility] THRMPLAS [id number] 05:35:21 Test Item Value Reference Range Interpretation [...] seconds. Lab Interpretation Normal (test code = 67353-2) [facility] CenterPROTHROMBIN TIME / [id number] 05:33:21 Test Item Value Reference Range Interpretation [...] tions. Lab Interpretation (test Normal code = 09782-8) [facility] CenterCOMP. METABOLIC PANEL (53787)2022-02-11 05:33:21 Test Item Value Reference Range Interpretation Comments NA (test code = 137 mmol/L 135-145 0383548402) K (test code = 4.3 mmol/L 3.5-5 3295946959) CL (test code = 103 mmol/L 98-108 3979575574) CO2 TOTAL (test code = 25 mmol/L 23-31 6064110921) AGAP (test code = 2-16 5135316857) BUN (test code = 19 mg/dL 7-23 1695876443) GLUCOSE (test code = 120 mg/dL 70-110 H 9990525545) CREATININE (test code = 1.15 mg/dL 0.5-1.04 H 8764605370) TOTAL BILI (test code = 0.9 mg/dL 0.1-1.4 3039390189) CALCIUM (test code = 8.9 mg/dL 8.6-10.6 5205715459) T PROTEIN (test code = 6.6 g/dL 6.3-8.2 9864448601) ALBUMIN (test code = 4.0 g/dL 3.5-5 4407900558) ALK PHOS (test code = 73 U/L 34-122 4274236314) ALTv (test code = 18 U/L 5-35 1742-6) AST(SGOT) (test code = 31 U/L 13-40 3402833769) eGFR (test code = mL/min/1.73m2 5618141657) KYLE (test code = KYLE) Association of [...] tests). Lab Interpretation Abnormal (test code = 24452-5) [facility] METABOLIC PANEL (19039)2022-02-11 05:33:21 Test Item Value Reference Range Interpretation Comments NA (test code = 137 mmol/L 135-145 6984554045) K (test code = 4.3 mmol/L 3.5-5.0 2967794718) CL (test code = 103 mmol/L 98-108 9918589768) CO2 TOTAL (test code = 25 mmol/L 23-31 0652160243) AGAP (test code = 2-16 0855167176) BUN (test code = 19 mg/dL 7-23 8366427598) GLUCOSE (test code = 120 mg/dL 70-110 H 0493446607) CREATININE (test code = 1.15 mg/dL 0.50-1.04 H 6915499383) TOTAL BILI (test code = 0.9 mg/dL 0.1-1.0 1179628907) CALCIUM (test code = 8.9 mg/dL 8.6-10.6 5477953650) T PROTEIN (test code = 6.6 g/dL 6.3-8.2 4775749688) ALBUMIN (test code = 4.0 g/dL 3.5-5.0 6277986121) ALK PHOS (test code = 73 U/L 34-122 4697833542) ALTv (test code = 18 U/L 5-35 1742-6) AST(SGOT) (test code = 31 U/L 13-40 0334092968) eGFR (test code = mL/min/1.73m2 6676805469) KYLE (test code = KYLE) Association of [...] tests). Lab Interpretation Abnormal (test code = 38505-4) [facility] CenterPROTHROMBIN TIME / [id number] 05:33:21 Test Item Value Reference Range Interpretation Comments PROTIME PATIENT (test See_Comment [Auto mated message] code = 5964-2) The system [employer] ich generated this result transmitted ref erence range: 12.0 - 1 4.7 Seconds. The re ference range was not u sed to interpret this result as normal/abnor mal. INR (test code = 6301-6) Nor mal INR <1.1; Warfarin Therap eutic range 2.0 to 3. 0 or 2.5 to 3.5, dep ending upon the indica tions. Lab Interpretation (test Normal code = 78374-6) [facility] CenterCB WITH [id number] 05:14:37 Test Item Value Reference Range Interpretation Comments WBC (test code = See_Comment [Automated 7290-2) message] The sy stem which generated this result transmitted reference range : 4.30 - 11.10 10*3/?L. The reference range was not used to interpret this result as normal/abnormal . RBC (test code = See_Comment L [Automated 919-8) message] The sy stem which generated this [...] RDW-SD (test code = 47.9 fL 39-49.9 62934-3) RDW-CV (test code = 14.9 % 12-15.5 788-0) PLT (test code = See_Comment L [Automated 777-3) message] The sy stem which generated this result transmitted reference range : 166 - 358 10*3/ ?L. The reference r abbey was not used to interpret this result as normal/abnormal . MPV (test code = 9.1 fL 9.5-12.9 L 86601-1) NRBC/100 WBC (test See_Comment [Automat ed code = 0582373583) message] The system which generated this result transmitted reference range : 0.0 - 10.0 /100 WBCs. The refer ence range was not u sed to interpret th is result as normal/abnormal . NRBC x10^3 (test code See_Comment [Auto mated = 5762436802) message] The s ystem which generated this result transmitted reference range : 10*3/?L. The reference range was not used to interpret this result as normal/abnormal . GRAN MAT (NEUT) % 78.5 % (test code = 770-8) IMM GRAN % (test code 0.20 % = 8648895786) LYMPH % (test code = 11.6 % 736-9) MONO % (test code = 8.4 % 5905-5) EOS % (test code = 1.1 % 713-8) BASO % (test code = 0.2 % 706-2) GRAN MAT x10^3(ANC) 3.45 10*3/uL 1.88-7.09 (test code = 9580730064) IMM GRAN x10^3 (test 0-0.06 code = 1858449135) LYMPH x10^3 (test code 0.51 10*3/uL 1.32-3.29 L = 731-0) MONO x10^3 (test code 0.37 10*3/uL 0.33-0.92 = 742-7) EOS x10^3 (test code = 0.05 10*3/uL 0.03-0.39 711-2) BASO x10^3 (test code 0.01-0.07 = 704-7) Lab Interpretation Abnormal (test code = 21825-1) [facility] Coronavirus 2019 Sgttcss1646-76-23 18:08:00 Test Item Value Reference Range Interpretation [...] det ection of nucleic acids f rom pjrDUFM-JqG-9 v irus and diagnosis of SA RS-CoV-2 virusinfection. It is an Emergency Use Authorization ( EUA) testauthorized by the U.S. FDA. BASIC METABOLIC [id number] 09:37:00 Test Item Value Reference Range Interpretation [...] = 9.0 mg/dL 8.0-10.5 N CA) PROTHROMBIN [id number] 09:32:00 Test Item Value Reference Range Interpretation [...] (to prevent recurrent infar ct). 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 [facility] - XR CHEST 1 [id number] 00:00:00 [facility] 1955 Sex: F FAX: Carmenza Kellyankristen Peterson DO [phone] [place]: St: ADM FAX: Mike Scales MD [phone] FAX: Bahman Chopra [phone] Name: LIO WATTS [facility] : 1955 Age/S: 66/F [address] [place] [address] Unit #: [id number] Loc: [place] [address] Phys: Bahman Chopra [facility] Acct: [id number] Dis Date: Status: ADM IN PHONE #: [phone] Exam Date: 06/17/2021 1320 FAX #: [phone] Reason: WATCHMAN EXAMS: CPT CODE: [id number] XR CHEST 1 V 46747 PROCEDURE INFORMATION: Exam: XR Chest Exam date [...] Chopra Technologist: RT Taylor(R) Trnscrd Date/Time/By: 06/17/2021 (8564) : By: IselaKWL Orig Print D/T: S: 06/17/2021 (0640) PAGE 1 Signed ReportCOVID 19 Asymptomatic IH [id number] 12:29:00 Test Item Value Reference Range Interpretation [...] high or waivedcomplexit y tests. BASIC METABOLIC [id number] 11:37:00 Test Item Value Reference Range Interpretation [...] code = 9.0 mg/dL 8.0-10.5 N CA) [id number] 11:37:00 Test Item Value Reference Range Interpretation Comments PREALBUMIN (test code = PREALB) 24.3 mg/dL 16.0-40.0 N PROTHROMBIN [id number] 11:03:00 Test Item Value Reference Range Interpretation [...] (to prevent recurrent infar ct). CBC W/AUTO WPZV6344-17-68 10:59:00 Test Item Value Reference Range Interpretation [...] 3/uL 0.0-0.1 N NRBC#) - CHEST 2 [id number] 00:00:00 [facility] 1955 Sex: F FAX: Carmenza Kelly DO [phone] [place]: St: PRE FAX: Mike Scales MD [phone] Name: LIO WATTS [facility] : 1955 Age/S: 66/F [address] [place] [address] Blvd Unit #: [id number] Loc: [place] [address] Phys: Mike Lund MD Acct: [id number] Dis Date: Status: PRE SDC PHONE #: [phone] Exam Date: 06/16/2021 1120 FAX #: [phone] Reason: PREOP EXAMS: CPT CODE: [id number] XR CHEST 2 V 59039 PROCEDURE INFORMATION: Exam: XR Chest Exam date [...] Technologist: Danielle Nix RT(R) Trnscrd Date/Time/By: 06/16/2021 (0479) : By: [email or web address] Orig Print D/T: S: 06/16/2021 (1059) PAGE 1 Signed ReportGastrointestinal [id number] 04:35:05 Test Item Value Reference Interpretation Comments [...] Rotavirus PCR (test Not Detected code = 7990566) Salmonella PCR (test Not Detected code = [...] PCR Not Detected (test code = 7124) [facility] oqpcoon4396-26-91 19:30:47 Test Item Value Reference Range Interpretation Comments Case number (test [id number] code = 5731140) Surgical pathology See link below for PDF report (test code = Lab Report 2255) Result status (test This is Supplemental code = 0011466) Report for [id number] [facility]2021-04-09 16:31:00 Test Item Value Reference Range Interpretation Comments POC Activated Clotting Time (test code 153 s = POC Activated Clotting Time) [facility]landWvveoodJRLAYGIXQK9312-51-90 16:31:00 Test Item Value Reference Range Interpretation Comments POC Activated Clotting Time (test code 153 s = POC Activated Clotting Time) [facility]landOvfdtjsATRSKGUFVC7782-60-45 16:31:00 Test Item Value Reference Range Interpretation Comments POC Activated Clotting Time (test code 153 s = POC Activated Clotting Time) [facility]landOkbflckLBWYFKGOTQ0906-09-60 16:31:00 Test Item Value Reference Range Interpretation Comments POC Activated Clotting Time (test code 153 s = POC Activated Clotting Time) [facility]landLcrjridGIZEUZYPNX6962-65-14 16:31:00 Test Item Value Reference Range Interpretation Comments POC Activated Clotting Time (test code 153 s = POC Activated Clotting Time) [facility]landYpojbdiSMLZMIHCEB8350-69-73 16:31:00 Test Item Value Reference Range Interpretation Comments POC Activated Clotting Time (test code 153 s = POC Activated Clotting Time) [place] [id number] 16:31:00 Test Item Value Reference Range Interpretation Comments POC Activated Clotting Time (test code 153 s = POC Activated Clotting Time) [place] 144861-04-09 14:37:00 Test Item Value Reference Range Interpretation Comments POC Activated Clotting Time (test code 454 s = POC Activated Clotting Time) [place] 144861-04-09 14:37:00 Test Item Value Reference Range Interpretation Comments POC Activated Clotting Time (test code 454 s = POC Activated Clotting Time) [facility]landEhxutdqNSEWRNWRQR9767-63-78 14:37:00 Test Item Value Reference Range Interpretation Comments POC Activated Clotting Time (test code 454 s = POC Activated Clotting Time) [facility]landHzffemlHJGOOHSDIR2062-01-85 14:37:00 Test Item Value Reference Range Interpretation Comments POC Activated Clotting Time (test code 454 s = POC Activated Clotting Time) [facility]landKnrqjzcHCEWLLZEMH4177-60-32 14:37:00 Test Item Value Reference Range Interpretation Comments POC Activated Clotting Time (test code 454 s = POC Activated Clotting Time) [facility]landTszejniKSYQDBHODW9534-74-12 14:37:00 Test Item Value Reference Range Interpretation Comments POC Activated Clotting Time (test code 454 s = POC Activated Clotting Time) [facility]landXdylnlhATIYJXYGFB6832-84-31 14:37:00 Test Item Value Reference Range Interpretation Comments POC Activated Clotting Time (test code 454 s = POC Activated Clotting Time) [facility]landMykcyfqFRJVFHAHOV7736-73-62 14:13:00 Test Item Value Reference Range Interpretation Comments POC Activated Clotting Time (test code 354 s = POC Activated Clotting Time) [facility]landQtnsezjEOYMBRMZWZ9953-33-01 14:13:00 Test Item Value Reference Range Interpretation Comments POC Activated Clotting Time (test code 354 s = POC Activated Clotting Time) [facility]landSczgslwKHODUBWWMP5325-64-71 14:13:00 Test Item Value Reference Range Interpretation Comments POC Activated Clotting Time (test code 354 s = POC Activated Clotting Time) [facility]landBhwnjjgEJWQSYXYCN7745-94-75 14:13:00 Test Item Value Reference Range Interpretation Comments POC Activated Clotting Time (test code 354 s = POC Activated Clotting Time) [facility] MainlandZitdgamAVOARPJFPO9599-04-72 14:13:00 Test Item Value Reference Range Interpretation Comments POC Activated Clotting Time (test code 354 s = POC Activated Clotting Time) [facility] VojmmjaSOORMCQHMK0674-73-02 14:13:00 Test Item Value Reference Range Interpretation Comments POC Activated Clotting Time (test code 354 s = POC Activated Clotting Time) [facility] ResourcesLjcmuscSFHTRRKTKO9956-82-00 14:13:00 Test Item Value Reference Range Interpretation Comments POC Activated Clotting Time (test code 354 s = POC Activated Clotting Time) [facility] AQBIHAL1503-73-91 10:37:00Negative (08/29/20 5:37 AM) [facility] HermannCHEM WZHRO2566-40-67 10:37:77369Mthkyspl HermannCHEM PANEL 2020-08-29 10:37:0028[facility] HermannCHEM JTAML7714-83-68 10:37:001.01[facility] HermannCHEM KFUKI5354-33-37 10:37:53837Fxpbkius HermannCHEM LATXV8800-28-15 10:37:003.8[facility] HermannCHEM KYRSF0195-58-20 10:37:77115Lhoxohqq HermannCHEM BRTQD2756-32-41 10:37:0028[facility] HermannCHEM HNAGQ9477-37-08 10:37:009.8 [facility] HermannCHEM PAQFG2343-49-14 10:37:0011.8[facility] HermannCHEM PANEL 2020-08-29 10:37:0059[facility] HermannCHEM EDCDO2780-78-42 10:37:002.9[facility] CohuqhsSDOXFCTAEB9229-11-29 10:37:006.8[facility] SmjryacFDEMLCXFPL7722-15-19 10:37:004.47[facility] AxthenxNGZDCJWYFR6273-04-66 10:37:0010.6[facility] Marty OQSDRYLHOU6635-11-88 10:37:0034.0[facility] BvfjjnhCDEIDLWOAG6614-16-25 10:37:00 76.1[facility] KyrmzvhCUYLAMIROG7489-44-86 10:37:00 Test Item Value Reference Range Interpretation Comments MCH (test code = MCH) 23.8 pg 27.0-31.0 [facility] PnmulshQIXPIMOSVM1238-54-12 10:37:0031.3[facility] HermannHEMATOLOGY 2020-08-29 10:37:0018.2[facility] VdlhxknXJRTZOJEGH1898-79-38 10:37:22575Tjqxuapa PhtwhydCTTPNZOHFD5292-41-77 10:37:007.5[facility] TbmrydgVGJIDVJOPW5180-93-85 10:37:00 Test Item Value Reference Range Interpretation Comments PT (test code = PT) 12.8 s 12.0-14.7 [facility] YhqxcirWBHSCWKHST5173-56-25 10:37:00 Test Item Value Reference Range Interpretation Comments INR (test code = INR) 0.97 1 0.85-1.17 [facility] JigfjxeSYLCWKFXWM4275-98-04 10:37:00 Test Item Value Reference Range Interpretation Comments PTT (test code = PTT) 25.0 s 22.9-35.8 [facility] IkgzzsoFBOWVIPJRA0848-28-95 10:37:0070.5[facility] HermannHEMATOLOGY 2020-08-29 10:37:0018.8[facility] NpardlbZAUICRISUV5457-88-79 10:37:009.5[facility] UsmuaqvHLKRAPKMBX2182-59-00 10:37:000.9[facility] EhhcagfHCXONDXAJM5082-74-54 10:37:000.3[facility] GgvzfgxOFNJSIBTYB5304-63-34 10:37:004.8[facility] Marty LCHUHLDOQE7946-15-23 10:37:001.3[facility] YjyhjdnYYUFDFCDZO0238-39-26 10:37:000.6 [facility] NhkapkcBFJZEPUYPC7581-84-10 10:37:000.1[facility] HermannHEMATOLOGY 2020-08-29 10:37:001+ *ABN*(08/29/20 5:37 AM)[facility] SahxuhfZEPCYWNNZM5383-88-71 10:37:00Not Detected (08/29/20 5:37 AM)[facility] HermannBLOOD BANK RESULTS 2020-08-29 10:37:00Negative (08/29/20 5:37 AM)[facility] HermannCHEM GXGKX5216-43-30 10:37:32631Kdiwuyhw HermannCHEM TWETP1568-76-26 10:37:0028[facility] HermannCHEM TAGEW8829-55-95 10:37:001.01[facility] HermannCHEM ZSTXV2298-74-71 10:37:75694 [facility] HermannCHEM BKHLM2250-60-02 10:37:003.8[facility] HermannCHEM PANEL 2020-08-29 10:37:18968Esgfufru HermannCHEM TZAPG0418-44-57 10:37:0028[facility] HermannCHEM ZDKRB5119-19-29 10:37:009.8[facility] HermannCHEM TOJIY1586-61-00 10:37:0011.8[facility] HermannCHEM EPNDD7298-48-00 10:37:0059[facility] HermannCHEM MHETF0410-47-28 10:37:002.9[facility] BwvpcabPZFCJMQXND3471-09-42 10:37:006.8 [facility] AaotdqmIMUQDMULOQ2392-07-83 10:37:004.47[facility] HermannHEMATOLOGY 2020-08-29 10:37:0010.6[facility] AyenfweQAQQEAVRSC3278-57-74 10:37:0034.0[facility] EblckkzQJOTTUROFL8109-89-54 10:37:0076.1[facility] XwyfqpcQNXZXZRJHW0632-58-86 10:37:00 Test Item Value Reference Range Interpretation Comments MCH (test code = MCH) 23.8 pg 27.0-31.0 [facility] ClppnnvUXGOQNHSUU4957-90-33 10:37:0031.3[facility] HermannHEMATOLOGY 2020-08-29 10:37:0018.2[facility] GcnbaesYXFISVYLLY8238-46-43 10:37:95041Ngqbnsqe YjdjevtXUEBSYLHYI3097-94-77 10:37:007.5[facility] OhaasxmIGLTJQHYJN3509-42-58 10:37:00 Test Item Value Reference Range Interpretation Comments PT (test code = PT) 12.8 s 12.0-14.7 [facility] WxbesltCDOBZHLPYJ1743-98-77 10:37:00 Test Item Value Reference Range Interpretation Comments INR (test code = INR) 0.97 1 0.85-1.17 [facility] WnyunfbIHZAZLCHAK8786-53-32 10:37:00 Test Item Value Reference Range Interpretation Comments PTT (test code = PTT) 25.0 s 22.9-35.8 [facility] LxjzdcwZQWFLESGZX9833-88-17 10:37:0070.5[facility] HermannHEMATOLOGY 2020-08-29 10:37:0018.8[facility] YsmgioaYECRBXVVIH0234-65-79 10:37:009.5[facility] OagadvnNJBHMBMVUV9090-59-35 10:37:000.9[facility] TqsibsvWMASICLCQR6667-75-60 10:37:000.3[facility] PwakvalNIPNVKEJXC0218-70-12 10:37:004.8[facility] QVDGNBGWTF9691-27-03 10:37:001.3[facility] XvqvftxKVGDMFFJGT0811-29-56 10:37:000.6 [facility] GivvgxeHCVRUTNXJW0420-21-91 10:37:000.1[facility] HermannHEMATOLOGY 2020-08-29 10:37:001+ *ABN*(08/29/20 5:37 AM)[facility] LcwpmhnFEYRKRSVOG0059-88-41 10:37:00Not Detected (08/29/20 5:37 AM)[facility] HermannBLOOD BANK RESULTS 2020-08-29 10:37:00Negative (08/29/20 5:37 AM)[facility] HermannCHEM MCORE9003-05-66 10:37:06350Odbexxxa HermannCHEM ICAHO3643-30-78 10:37:0028[facility] HermannCHEM KELHB3709-66-69 10:37:001.01[facility] HermannCHEM STTKL8714-21-96 10:37:58526 [facility] HermannCHEM LLDKQ7158-82-59 10:37:003.8[facility] HermannCHEM PANEL 2020-08-29 10:37:08929Zjyyeyid HermannCHEM CWNVV4918-30-57 10:37:0028[facility] HermannCHEM LYRJV7578-32-26 10:37:009.8[facility] HermannCHEM LQJBY4289-48-99 10:37:0011.8[facility] HermannCHEM WRBAV2882-79-26 10:37:0059[facility] HermannCHEM OIOWL1686-38-69 10:37:002.9[facility] NoojubeVPQPBDSWTA0630-40-73 10:37:006.8 [facility] QfibqlhKIGNVOYFDO9566-52-09 10:37:004.47[facility] HermannHEMATOLOGY 2020-08-29 10:37:0010.6[facility] IkckaraWOLCQHLGUF5060-83-77 10:37:0034.0[facility] XcxutqzPNOSDTKVIJ8232-91-85 10:37:0076.1[facility] YkytqikQXEWYXVCMJ2373-44-21 10:37:00 Test Item Value Reference Range Interpretation Comments MCH (test code = MCH) 23.8 pg 27.0-31.0 [facility] QxqxypjQXEZHVHHGF8397-76-05 10:37:0031.3[facility] HermannHEMATOLOGY 2020-08-29 10:37:0018.2[facility] JmpogtwOBIFSVNPHT9547-24-94 10:37:80426Iskdwtfb ZhhhcmuQHDPXTOTRT7167-40-47 10:37:007.5[facility] MysuqbeZHXFSWGTFR7869-15-10 10:37:00 Test Item Value Reference Range Interpretation Comments PT (test code = PT) 12.8 s 12.0-14.7 [facility] PurwxdmYOEDWFQPEP6365-91-94 10:37:00 Test Item Value Reference Range Interpretation Comments INR (test code = INR) 0.97 1 0.85-1.17 [facility] VtgkezjXKXCYWVSRV1969-67-01 10:37:00 Test Item Value Reference Range Interpretation Comments PTT (test code = PTT) 25.0 s 22.9-35.8 [facility] KzrsvpoBYDCJFVLKP5181-99-34 10:37:0070.5[facility] HermannHEMATOLOGY 2020-08-29 10:37:0018.8[facility] LkafcrzIQCTOLIKKS5652-69-37 10:37:009.5[facility] NwhfvomFFVBWMNTOW8683-25-29 10:37:000.9[facility] DvsikfeKPBGXVBMVD6725-98-16 10:37:000.3[facility] SwweatsHQYWKNXTJR8777-62-85 10:37:004.8[facility] [place] KLESQUDRKB9991-34-48 10:37:001.3[facility] LdqxzarTQSTCJFIZW9339-70-03 10:37:000.6 [facility] PmngrzgMCBKDIKTUV1575-55-64 10:37:000.1[facility] HermannHEMATOLOGY 2020-08-29 10:37:001+ *ABN*(08/29/20 5:37 AM)[facility] ZsnkrapUHBWPEBCHI3543-01-52 10:37:00Not Detected (08/29/20 5:37 AM)[facility] HermannBLOOD BANK RESULTS 2020-08-29 10:37:00Negative (08/29/20 5:37 AM)[facility] HermannCHEM XOUAZ8216-07-10 10:37:44058Tzrzelpq HermannCHEM YWYPH0355-38-75 10:37:0028[facility] HermannCHEM GHEMQ3504-63-42 10:37:001.01[facility] HermannCHEM FXNHC5118-43-63 10:37:77160 [facility] HermannCHEM JLLVP9248-83-58 10:37:003.8[facility] HermannCHEM PANEL 2020-08-29 10:37:41638Ygoyqlvr HermannCHEM RGGLN6194-15-60 10:37:0028[facility]annCHEM DCILM4532-82-98 10:37:009.8[facility]annCHEM OQDLP3894-46-25 10:37:0011.8[facility]annCHEM DLGUO8481-41-48 10:37:0059[facility]annCHEM WZGTW9081-66-42 10:37:002.9[facility] XhpmcnpHDRBQSJPKO9181-98-73 10:37:006.8 [facility] OzvmmiaOOPHMDIMCI5011-31-96 10:37:004.47[facility]annHEMATOLOGY 2020-08-29 10:37:0010.6[facility] PfrvbroQMPUQXWOOK8692-49-08 10:37:0034.0[facility] KlgvqdzDGCGLQGARB8332-16-43 10:37:0076.1[facility] AclbpuuTURQTPDWWY5075-13-07 10:37:00 Test Item Value Reference Range Interpretation Comments MCH (test code = MCH) 23.8 pg 27.0-31.0 [facility] CdcvghuWSINJPXHXW4501-41-89 10:37:0031.3[facility]annHEMATOLOGY 2020-08-29 10:37:0018.2[facility] SezrjtnDEYQXILQMR3638-60-09 10:37:98322Ulpnzloj AhsjelkOCLNHCHPDK4380-04-06 10:37:007.5[facility] XjrmmskAKCOYYDWPU1331-49-94 10:37:00 Test Item Value Reference Range Interpretation Comments PT (test code = PT) 12.8 s 12.0-14.7 [facility] ZtshgbzWNBEOWPRSZ9586-65-30 10:37:00 Test Item Value Reference Range Interpretation Comments INR (test code = INR) 0.97 1 0.85-1.17 [facility] PhvmkmiDBILZBGXZP7160-63-89 10:37:00 Test Item Value Reference Range Interpretation Comments PTT (test code = PTT) 25.0 s 22.9-35.8 [facility] KrmtqqbBJICTQINHX1290-10-57 10:37:0070.5[facility] HermannHEMATOLOGY 2020-08-29 10:37:0018.8[facility] SicutnzZCGOCXCEUT2572-89-02 10:37:009.5[facility] SwyxwvcKYDOISIWVO5289-67-87 10:37:000.9[facility] LnzyljnRARELDNNUE7010-06-10 10:37:000.3[facility] QyjgnhmULDZGOKJXL4282-35-79 10:37:004.8[facility] JUGYEBNCLR0733-66-37 10:37:001.3[facility] JzjujimPBWDHWQVCO6863-04-75 10:37:000.6 [facility] MqvszekWBXAEKJHAG0692-25-86 10:37:000.1[facility]annHEMATOLOGY 2020-08-29 10:37:001+ *ABN*(08/29/20 5:37 AM)[facility] UehanczENBESMXVAJ7945-88-70 10:37:00Not Detected (08/29/20 5:37 AM)[facility] RESULTS 2020-08-29 10:37:00Negative (08/29/20 5:37 AM)[facility] HermannCHEM IBCGT5679-74-75 10:37:38347Wvqvuokz HermannCHEM BQZOJ2779-88-91 10:37:0028[facility] HermannCHEM ADUKM1269-18-79 10:37:001.01[facility] HermannCHEM TYSQH8449-15-22 10:37:22569 [facility]annCHEM QXXOU6866-49-87 10:37:003.8[facility] HermannCHEM PANEL 2020-08-29 10:37:14495Uennjmcz HermannCHEM DALTB9338-20-33 10:37:0028[facility] HermannCHEM MCRTW1521-61-20 10:37:009.8[facility] HermannCHEM CHZBJ5301-76-53 10:37:0011.8[facility] HermannCHEM STLOK9913-67-39 10:37:0059[facility] HermannCHEM TGQEC2408-85-72 10:37:002.9[facility] ZdsnsavDOMLYVBKUD8178-29-93 10:37:006.8 [facility] GzwdfgzPOMTJVCESZ0192-67-56 10:37:004.47[facility] HermannHEMATOLOGY 2020-08-29 10:37:0010.6[facility] BwcjwtjMEEZSZOVYM5683-68-27 10:37:0034.0[facility] KllggbdAALFRJSPUC4884-74-23 10:37:0076.1[facility] NwijdfvMAQPPPNALK3118-07-45 10:37:00 Test Item Value Reference Range Interpretation Comments MCH (test code = MCH) 23.8 pg 27.0-31.0 [facility] JmimtavMKCLAFWQQQ4452-86-80 10:37:0031.3[facility] HermannHEMATOLOGY 2020-08-29 10:37:0018.2[facility] OxheeftKZEBONVZCG4317-09-18 10:37:32650Qowokdku SiynlmfFCFNGREABS0707-89-45 10:37:007.5[facility] EwyorguTFKOSBFAZY5367-61-36 10:37:00 Test Item Value Reference Range Interpretation Comments PT (test code = PT) 12.8 s 12.0-14.7 [facility] UrvvahhGPTQKNASJG4830-38-41 10:37:00 Test Item Value Reference Range Interpretation Comments INR (test code = INR) 0.97 1 0.85-1.17 [facility] HtdaezcEDKWQTJSVU6067-22-22 10:37:00 Test Item Value Reference Range Interpretation Comments PTT (test code = PTT) 25.0 s 22.9-35.8 [facility] IcubirbUSKAAWDAFE1745-83-81 10:37:0070.5[facility] HermannHEMATOLOGY 2020-08-29 10:37:0018.8[facility] VbtaisoXRLRWBJWNY5320-73-59 10:37:009.5[facility] KjxernrNEFXXMNQPT7645-54-05 10:37:000.9[facility] OlmjyjmEHJRXEGLTP7852-51-17 10:37:000.3[facility] HeoispjJXKSIYVNLV0837-94-59 10:37:004.8[facility] BQSIXDTYGJ0428-61-69 10:37:001.3[facility] XninqfoNNOZQQZEMQ5986-86-93 10:37:000.6 [facility] JwkvavzBBOCCUWGHP6867-42-82 10:37:000.1[facility] HermannHEMATOLOGY 2020-08-29 10:37:001+ *ABN*(08/29/20 5:37 AM)[facility] IxvypfrQBXDQOTMXI6831-25-00 10:37:00Not Detected (08/29/20 5:37 AM)[facility] HermannBLOOD BANK RESULTS 2020-08-29 10:37:00Negative (08/29/20 5:37 AM)[facility] HermannCHEM MFVPT3368-03-63 10:37:42657Nzhzkxyt HermannCHEM KHURT3077-06-95 10:37:0028[facility] HermannCHEM UWHQF4280-92-43 10:37:001.01[facility] HermannCHEM RESFT7633-08-89 10:37:04964 [facility]annCHEM NEXRS0610-97-87 10:37:003.8[facility] HermannCHEM PANEL 2020-08-29 10:37:48732Ptxrrwrc HermannCHEM FIBFW0987-31-20 10:37:0028[facility] HermannCHEM VDUIG6019-70-61 10:37:009.8[facility] HermannCHEM MOLZD9451-00-93 10:37:0011.8[facility] HermannCHEM KPALB1051-60-31 10:37:0059[facility] HermannCHEM OHAXQ0841-70-30 10:37:002.9[facility] WgggmkuCNRDKXJCTI5388-76-50 10:37:006.8 [facility] SqhxecpXOXYSPCYOV1180-98-29 10:37:004.47[facility] HermannHEMATOLOGY 2020-08-29 10:37:0010.6[facility] FpgdnyoWKLPNJVSPL7198-94-72 10:37:0034.0[facility] GyhxtupXDKYISNYTV9355-48-49 10:37:0076.1[facility] WzxugbuPAXMOBIKTC7252-07-67 10:37:00 Test Item Value Reference Range Interpretation Comments MCH (test code = MCH) 23.8 pg 27.0-31.0 [facility] DbujcmiHDYSYJXLYY9899-00-72 10:37:0031.3[facility] HermannHEMATOLOGY 2020-08-29 10:37:0018.2[facility] QyeaxdyNCYUYLRBIR7209-65-30 10:37:28525Oukgtfhj YzjvxstAZEEJGTBAU4187-64-26 10:37:007.5[facility] HvqcwstPGJKBTZFVI6199-51-10 10:37:00 Test Item Value Reference Range Interpretation Comments PT (test code = PT) 12.8 s 12.0-14.7 [facility] YowwmynHNBOBJCEJA0641-34-09 10:37:00 Test Item Value Reference Range Interpretation Comments INR (test code = INR) 0.97 1 0.85-1.17 [facility] CivuhgcGNLVQDJIOH1202-49-26 10:37:00 Test Item Value Reference Range Interpretation Comments PTT (test code = PTT) 25.0 s 22.9-35.8 [facility] KaxsejwNFYHUXLEJU6742-43-28 10:37:0070.5[facility] HermannHEMATOLOGY 2020-08-29 10:37:0018.8[facility] PawyyvtDEVMYHOQLS7661-05-92 10:37:009.5[facility] EsgahdsXWLYMVUJXO0089-22-26 10:37:000.9[facility] IklbltdOQKMXWVXHJ5055-97-03 10:37:000.3[facility] OepterfDEAVNDVUML9672-22-53 10:37:004.8[facility] UQRMJTXSRM3467-40-95 10:37:001.3[facility] ImqllswXJCGNFSRZS9197-95-82 10:37:000.6 [facility] YgbkirwWRTNLUDCGY5292-35-72 10:37:000.1[facility] HermannHEMATOLOGY 2020-08-29 10:37:001+ *ABN*(08/29/20 5:37 AM)[facility] KkeqhdhOVWNEFDNLA8271-18-16 10:37:00Not Detected (08/29/20 5:37 AM)[facility] HermannBLOOD BANK RESULTS 2020-08-29 10:37:00Negative (08/29/20 5:37 AM)[facility] HermannCHEM QERZH2550-73-02 10:37:15731Iurvgdlb HermannCHEM MGSJA7117-03-94 10:37:0028[facility] HermannCHEM MFYHZ3549-32-10 10:37:001.01[facility] HermannCHEM CMOQY5233-35-55 10:37:09726 [facility] HermannCHEM LOPDT3516-62-10 10:37:003.8[facility] HermannCHEM PANEL 2020-08-29 10:37:06983Tmuokktg HermannCHEM INSLA9078-66-68 10:37:0028[facility] HermannCHEM VXFZG7154-99-61 10:37:009.8[facility] HermannCHEM DFQSH4911-09-03 10:37:0011.8[facility] HermannCHEM KFZRT9605-70-15 10:37:0059[facility] HermannCHEM ZZWZY7376-20-05 10:37:002.9[facility] UxjkwdsQPWUDYMEZA3046-22-40 10:37:006.8 [facility] ZrtorquMRNLHCAFMJ5689-50-33 10:37:004.47[facility] HermannHEMATOLOGY 2020-08-29 10:37:0010.6[facility] DaujvroXQPGPCINWG9233-62-17 10:37:0034.0[facility] QeaxkdrAFWXIVSACD7617-53-04 10:37:0076.1[facility] FmnebjkYDCDUVLTXS2307-91-41 10:37:00 Test Item Value Reference Range Interpretation Comments MCH (test code = MCH) 23.8 pg 27.0-31.0 [facility] OhasircEGHEEEHVWM2190-20-68 10:37:0031.3[facility] HermannHEMATOLOGY 2020-08-29 10:37:0018.2[facility] KvyqbceLFZHHCFMZI3390-36-37 10:37:15539Qutmoisq ErgmfumTVSSDTEXYF0254-47-48 10:37:007.5[facility] PjdcgyoNYZYOUEAWN3732-58-51 10:37:00 Test Item Value Reference Range Interpretation Comments PT (test code = PT) 12.8 s 12.0-14.7 [facility] JcrpbicTYJYOSBCRT9088-21-25 10:37:00 Test Item Value Reference Range Interpretation Comments INR (test code = INR) 0.97 1 0.85-1.17 [facility] NlmenxyFCXEKMIFWV5257-93-78 10:37:00 Test Item Value Reference Range Interpretation Comments PTT (test code = PTT) 25.0 s 22.9-35.8 [facility] JgpebgnYQIWDGBZXB1364-56-92 10:37:0070.5[facility] HermannHEMATOLOGY 2020-08-29 10:37:0018.8[facility] ErdwgywIQDFJTFFEJ1047-93-08 10:37:009.5[facility] AhblxqoCNBXQKBIKN5419-08-30 10:37:000.9[facility] GgnbnttWWVVJEGLRM7101-29-65 10:37:000.3[facility] XclamzeOKOPALNCRG4015-72-52 10:37:004.8[facility] DHKKFELDNG1800-02-11 10:37:001.3[facility] HnznipjLIPLYDEWCT7966-24-79 10:37:000.6 [facility] BdxdyznPPLADYBMCQ5497-16-84 10:37:000.1[facility] HermannHEMATOLOGY 2020-08-29 10:37:001+ *ABN*(08/29/20 5:37 AM)[facility] QbqglmvXZXHKEGVWE7771-58-54 10:37:00Not Detected (08/29/20 5:37 AM)[facility] HermannCHLAMYDIA, GC, TV,PCR, IN GOXOM4825-76-53 15:38:00 Test Item Value Reference Range Interpretation Comments FT (test code = CHTR) Not detected (qualifier Not Detected N value) FT (test code = Not detected (qualifier Not Detected N NGONO) value) FT (test code = TRVG) Not detected (qualifier Not Detected N value) [facility] WITH EMPIXMJJJUF6810-25-48 10:57:00 Test Item Value Reference Range Interpretation Comments Color (test code = UCOLR) Dk. Yellow Clarity (test code = UCLAR) Hazy Glucose (test code = UGLUC) NEGATIVE NEGATIVE N Bilirubin (test code = UBILI) NEGATIVE NEGATIVE N Ketones (test code = UKET) NEGATIVE NEGATIVE N Specific Graham (test code = 1.025 1.005-1.030 A USPGR) [...] = None Seen None Seen N URCRYS) [facility]"
[2022-05-04 09:43] LABS: Protime INR 1.16
[2022-05-04 09:43] LABS: Potassium 3.9 mmol/L (3.5-5.1)
[2022-05-04] MEDS ORDERED: KETOROLAC 30 MG/ML INJ ONE (10:20)
[2022-05-04 10:58] LABS: SARS-COV-2 RT PCR POSITIVE (NEGATIVE)
--- NOTE | 2022-05-04 11:24 | ER ---
Nurse's Notes [facility] Name: Marjan Kolb Age: 67 yrs Sex: Female : 1955 Arrival Date: 05/04/2022 Time: 04:56 Bed 6 Private MD: Diagnosis: SARS-associated coronavirus as the cause of diseases classified elsewhere;Nasal congestion;Myalgia Presentation: 05/04 04:56 Chief complaint: EMS states: they were toned out for report of pt with low back pain bb which she has had for several weeks and pt fell out of bed around 0130 no LOC denies head injury pt was too weak to get up. Coronavirus screen: At this time, the client does not indicate any symptoms associated with coronavirus-19. Ebola Screen: No symptoms or risks identified at this time. 04:56 Method Of Arrival: EMS: [facility] bb 04:59 Initial Sepsis Screen: Does the patient meet any 2 criteria? No. Patient's initial bb sepsis screen is negative. Does the patient have a suspected source of infection? No. Patient's initial sepsis screen is negative. Risk Assessment: Do you want to hurt yourself or someone else? Patient reports no desire to harm self or others. Onset of symptoms was May 04, 2022. 04:59 Acuity: BLAYNE 3 bb Historical: - Allergies: 05:02 Bactrim; bb 05:02 butorphanol; bb 05:02 Fentanyl; bb 05:02 Reglan; bb 05:02 Sulfa (Sulfonamide Antibiotics); bb 05:02 TRIMETHOPRIM; bb - PMHx: 05:02 Anxiety; Atrial fibrillation; Bipolar disorder; esophageal varicies; hepatitis; HIV bb positive; Hypertensive disorder; Migraine; Panic attack; - Immunization history:: Adult Immunizations unknown. - Social history:: Smoking status: Patient reports the use of cigarette tobacco products. - Family history:: not pertinent. - Hospitalizations: : No recent hospitalization is reported. Screenin:00 Abuse screen: Denies threats or abuse. Nutritional screening: No deficits noted. mb9 Tuberculosis screening: No symptoms or risk factors identified. Fall Risk Fall in past 12 months (25 points). Assessment: 08:30 Reassessment: pt brought back to room. mb9 08:45 General: Appears uncomfortable, Behavior is anxious, crying. Pain: Complains of pain in mb9 left shoulder and head Pain does not radiate. Pain currently is 10 out of 10 on a pain scale. Aggravated by increased activity. Neuro: Gonzalez Agitation-Sedation Scale (RASS): 0 - Alert and Calm Level of Consciousness is awake, alert, obeys commands, Oriented to person, place, time, situation, Appropriate for age. Cardiovascular: Heart tones S1 S2 present Rhythm is regular. Respiratory: Airway is patent Respiratory effort is even, unlabored, Respiratory pattern is regular, symmetrical. 08:45 GI: Abdomen is round non-distended, Bowel sounds present X 4 quads. Abd is soft and non mb9 tender X 4 quads. : No signs and/or symptoms were reported regarding the genitourinary system. EENT: No signs and/or symptoms were reported regarding the EENT system. Derm: Skin is fragile, is thin, with poor turgor Skin is dry, Bruising that is dark purple, on right hand, left hand, right arm and left arm. Musculoskeletal: Range of motion: intact in all extremities. 10:14 Reassessment: pt states she has 10/10 pain that is aching/throbbing in her head and mb9 left shoulder. Alyssa JENKINS, notified. 11:14 Pain: Complains of pain in head Pain does not radiate. Pain currently is 6 out of 10 on mb9 a pain scale. Quality of pain is described as throbbing. Cardiovascular: Rhythm is regular. Respiratory: Airway is patent Respiratory effort is even, unlabored, Respiratory pattern is regular, symmetrical. Respiratory: Breath sounds are coarse bilaterally. Derm: Skin is fragile, is thin, with poor turgor Skin is dry, Bruising that is dark purple, on right arm, left arm, right leg and left leg. Vital Signs: 04:56 BP 180 / 105; Pulse 90; Resp 16 S; Temp 99.9(O); Pulse Ox 95% on R/A; bb 04:59 Weight 78.9 kg (R); Height 5 ft. 4 in. (162.56 cm) (R); bb 09:37 BP 182 / 108; Pulse 95; Resp 18; Pulse Ox 97% on R/A; Pain 10/10; mb9 10:50 BP 174 / 108; Pulse 72; Resp 18; Pulse Ox 97% on R/A; Pain 0/10; mb9 11:28 BP 172 / 106; Pulse 74; Resp 18; Pulse Ox 98% on R/A; mb9 04:59 Body Mass Index 29.86 (78.90 kg, 162.56 cm) bb ED Course: 04:56 Patient arrived in ED. bb 04:59 Triage completed. bb 05:02 Arm band placed on Patient placed in waiting room, in a wheelchair. bb 05:09 Ramon Baker MD is Attending Physician. rn 06:01 Abdomen In Process Unspecified. EDMS 06:24 XRAY Chest (1 view) In Process Unspecified. EDMS 07:24 Attending Physician role handed off by Ramon Baker MD ms3 07:24 Jose Shah DO is Attending Physician. ms3 08:30 Jessie Cristina, ASHLEY is Primary Nurse. mb9 08:44 Placed in gown. Bed in low position. Call light in reach. Side rails up X 1. Client mb9 placed on continuous cardiac and pulse oximetry monitoring. NIBP monitoring applied. 09:14 COVID-19/FLU A+B Sent. mb9 09:14 Missed attempt(s): 24 gauge in right upper arm. Bleeding controlled, band aid applied, aa5 catheter tip intact. 09:14 Initial lab(s) drawn, by me, sent to lab. aa5 09:28 Inserted saline lock: 24 gauge in right upper arm, using aseptic technique. aa5 09:33 Protime (+inr) Sent. mb9 09:33 Ptt, Activated Sent. mb9 09:34 CBC with Diff Sent. mb9 09:34 Basic Metabolic Panel Sent. mb9 09:34 Lab(s) recollected, by me, sent to lab. aa5 11:29 No provider procedures requiring assistance completed. IV discontinued, intact, mb9 bleeding controlled, No redness/swelling at site. Pressure dressing applied. Administered Medications: 10:25 Drug: Ketorolac 10 mg Route: IVP; Site: right upper arm; mb9 11:08 Follow up: Response: No adverse reaction mb9 Medication: 11:29 VIS not applicable for this client. mb9 Outcome: 11:24 Discharge ordered by MD. ms3 11:39 Discharged to home via wheelchair. mb9 11:39 Condition: stable 11:39 Discharge instructions given to patient, Instructed on discharge instructions, follow up and referral plans. Demonstrated understanding of instructions, follow-up care. 12:55 Patient left the ED. mb9 Signatures: Dispatcher [employer] Dee Villegas, RN RN Ramon Hart MD MD rn Calderon, Audri, RN RN aa5 Jose Shah DO DO ms3 Jessie Cristina RN RN mb9
--- NOTE | 2022-05-04 11:24 | EDPHYS ---
Physician Documentation [facility] Name: Marjan Kolb Age: 67 yrs Sex: Female : 1955 Arrival Date: 05/04/2022 Time: 04:56 Bed 6 Private MD: ED Physician Jose Shah HPI: 05/04 05:36 This 67 yrs old Female presents to ER via EMS with complaints of Fall Injury, Low Back rn Pain. 05:36 Details of fall: The patient fell from a supine position, out of bed. Onset: The rn symptoms/episode began/occurred just prior to arrival. Associated injuries: The patient sustained injury to the low back. Severity of symptoms: At their worst the symptoms were mild, in the emergency department the symptoms are unchanged. The patient has experienced similar episodes in the past. The patient has been recently seen at the [facility] Emergency Department. Pt reports was sleeping, fell out of bed, has chronic low back pain but states its worse. Also reports feeling sick for the last 2-3 days with subjective fever, congestion, cough. No sob. No vomiting/diarrhea. Reports generalized weakness. . Historical: - Allergies: 05:02 Bactrim; bb 05:02 butorphanol; bb 05:02 Fentanyl; bb 05:02 Reglan; bb 05:02 Sulfa (Sulfonamide Antibiotics); bb 05:02 TRIMETHOPRIM; bb - PMHx: 05:02 Anxiety; Atrial fibrillation; Bipolar disorder; esophageal varicies; hepatitis; HIV bb positive; Hypertensive disorder; Migraine; Panic attack; - Immunization history:: Adult Immunizations unknown. - Social history:: Smoking status: Patient reports the use of cigarette tobacco products. - Family history:: not pertinent. - Hospitalizations: : No recent hospitalization is reported. ROS: 05:36 Constitutional: + fever Eyes: Negative for injury, pain, redness, and discharge, ENT: + rn congestion Cardiovascular: Negative for chest pain, palpitations, and edema, Respiratory: + cough, neg for sob Abdomen/GI: Negative for nausea, vomiting, diarrhea, and constipation, Back: + low back pain and injury MS/Extremity: Negative for injury and deformity, Skin: Negative for injury, rash, and discoloration, Neuro: Negative for numbness, tingling, and seizure. Exam: 05:36 Constitutional: This is a well developed, well nourished patient who is awake, alert, rn and in no acute distress. Head/Face: Normocephalic, atraumatic. Cardiovascular: Regular rate, irregular rhythm. No pulse deficits. Respiratory: No increased work of breathing, no retractions or nasal flaring. Abdomen/GI: Soft, non-tender Skin: Warm, dry MS/ Extremity: Pulses equal, no cyanosis. normal FROM of extremities. Old healing wounds on arms and legs. No acute lacerations. Neuro: Awake and alert, GCS 15, oriented to person, place, time, and situation. Cranial nerves II-XII grossly intact. Motor strength 4/5 in all extremities. Sensory grossly intact. Vital Signs: 04:56 BP 180 / 105; Pulse 90; Resp 16 S; Temp 99.9(O); Pulse Ox 95% on R/A; bb 04:59 Weight 78.9 kg (R); Height 5 ft. 4 in. (162.56 cm) (R); bb 09:37 BP 182 / 108; Pulse 95; Resp 18; Pulse Ox 97% on R/A; Pain 10/10; mb9 10:50 BP 174 / 108; Pulse 72; Resp 18; Pulse Ox 97% on R/A; Pain 0/10; mb9 11:28 BP 172 / 106; Pulse 74; Resp 18; Pulse Ox 98% on R/A; mb9 04:59 Body Mass Index 29.86 (78.90 kg, 162.56 cm) bb MDM: 05:09 Patient medically screened. rn 11:21 Data reviewed: vital signs, nurses notes, lab test result(s), radiologic studies, CT ms3 scan, and as a result, I will discharge patient. 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 Counseling: I had a detailed discussion with the patient and/or guardian regarding: the historical points, exam findings, and any diagnostic results supporting the discharge/admit diagnosis, lab results, radiology results, the need for outpatient follow up, to return to the emergency department if symptoms worsen or persist or if there are any questions or concerns that arise at home. ED course: Discussed labs and imaging with patient. Discussed Paxlovid with patient. Patient elects for symptomatic treatment at this time. All questions were answered. Return precautions discussed include worsening symptoms, or any other concerns. 05/04 05:11 Order name: Basic Metabolic Panel; Complete Time: 10:02 rn 05/04 05:11 Order name: Protime (+inr); Complete Time: 10:02 rn 05/04 05:11 Order name: Ptt, Activated; Complete Time: 10:02 rn 05/04 05:11 Order name: COVID-19/FLU A+B; Complete Time: 11:15 rn 05/04 05:14 Order name: XRAY Chest (1 view) rn 05/04 05:11 Order name: IV Start; Complete Time: 09:32 rn 05/04 05:14 Order name: CT Abd/Pelvis - Without Contrast rn 05/04 05:18 Order name: Abdomen EDAL 05/04 09:27 Order name: Labs - recollect needed: recollect lavender top; Complete Time: 09:33 bd Administered Medications: 10:25 Drug: Ketorolac 10 mg Route: IVP; Site: right upper arm; mb9 11:08 Follow up: Response: No adverse reaction mb9 Disposition Summary: 05/04/22 11:24 Discharge Ordered Location: Home ms3 Condition: Stable ms3 Diagnosis - SARS-associated coronavirus as the cause of diseases classified elsewhere ms3 - Nasal congestion ms3 - Myalgia ms3 Followup: ms3 - With: Private Physician - When: 2 - 3 days - Reason: Recheck today's complaints Discharge Instructions: - Discharge Summary Sheet ms3 - COVID-19 ms3 - Things to Know about the COVID-19 Pandemic - [facility] ms3 - 10 Things You Can Do to Manage Your COVID-19 Symptoms at Home - [facility] ms3 - COVID-19: Quarantine vs. Isolation - CDC ms3 Forms: - Medication Reconciliation Form ms3 - Thank You Letter ms3 - Antibiotic Education ms3 - Prescription Opioid Use ms3 Signatures: Dispatcher [employer] EDHeydi Travis Brenda RN RN Ramon Hart MD MD rn Sims, Marcus, DO DO ms3 Jessie Cristina RN RN mb9
[2022-05-04 13:14] VITALS: TEMP 99.9
[2022-05-04 13:18] VITALS: BP 172/106; O2SAT 98
--- NOTE | 2022-05-04 16:07 | RAD REPORT ---
EXAM DESCRIPTION: CT - Abdomen Pelvis Wo Contrast - 05/04/2022 7:04 am CLINICAL HISTORY: The patient is 67 years old and is Female; low back pain, abd pain, fall TECHNIQUE: Axial computed tomography images of the abdomen and pelvis without intravenous contrast. Sagittal and coronal reformatted images were created and reviewed. This CT exam was performed usi ng one or more of the following dose reduction techniques: automated exposure control, adjustment o f the mA and/or kV according to patient size, and/or use of iterative reconstruction technique. COMPARISON: April 30, 2022 FINDINGS: Lung bases: Unremarkable. No mass. No consolidation. ABDOMEN: Liver: Unremarkable. Gallbladder and bile ducts: Gallbladder is surgically absent. No ductal dilation. Pancreas: Unremarkable. No ductal dilation. Spleen: Mild splenomegaly. Adrenals: Unremarkable. No mass. Kidneys and ureters: Multiple simple cysts in the kidneys bilaterally measuring up to 5.2 cm in diameter. ACR White Paper guidelines (Herhill, et al. JACR 2018; 15(2):264-273) suggest no follow-up is necessary. No obstructing stones. No hydronephrosis. Stomach and bowel: Unremarkable. No obstruction. No mucosal thickening. PELVIS: Appendix: No findings to suggest acute appendicitis. Bladder: Unremarkable. Reproductive: Unremarkable as visualized. ABDOMEN and PELVIS: Intraperitoneal space: Unremarkable. No free air. No significant fluid collection. Bones/joints: Small disc bulge at L4-5. 4 mm of anterolisthesis of L5 on S1. No acute fracture. No dislocation. Soft tissues: Unremarkable. Vasculature: Scattered atherosclerotic vascular calcifications. No abdominal aortic aneurysm. Lymph nodes: Unremarkable. No enlarged lymph nodes. IMPRESSION: No acute finding in the abdomen/pelvis. Electronically signed by: Karan Cabezas MD 05/04/2022 6:24 AM [facility] DIRECT[facility] Due to temporary technical issues with the PACS/Fluency reporting system, reports are being signed by the in house radiologists without review as a courtesy to insure prompt reporting. The interpreting radiologist is fully responsible for the content of the report.
--- NOTE | 2022-05-04 17:37 | RAD REPORT ---
EXAM DESCRIPTION: RAD - Chest Single View - 05/04/2022 6:22 am CLINICAL HISTORY: The patient is 67 years old and is Female; COUGH TECHNIQUE: Single view of the chest. COMPARISON: April 30, 2022. FINDINGS: Limitations: Evaluation limited by body habitus. Lungs: Unremarkable. No consolidation. Pleural space: Unremarkable. No pneumothorax. Heart: Cardiomegaly. Mediastinum: Unremarkable. Bones/joints: Bilateral reverse shoulder arthroplasty hardware. No acute rib fracture. Upper abdomen: No free air in the visualized upper abdomen. IMPRESSION: 1. Evaluation limited by body habitus. 2. Lines and tubes as above. 3. No acute cardiopulmonary process identified. Electronically signed by: Leyda Velazquez MD 05/04/2022 6:31 AM [employer] Due to temporary technical issues with the PACS/Fluency reporting system, reports are being signed by the in house radiologists without review as a courtesy to insure prompt reporting. The interpreting radiologist is fully responsible for the content of the report.
== END 2022-05-04 12:55 | disposition home or self-care (01) ==
LOC: ER 04:54
DX: U07.1 COVID-19 (principal); R09.81 Nasal congestion; M79.10 Myalgia, unspecified site; Z72.0 Tobacco use; I10 Essential (primary) hypertension; Z21 Asymptomatic human immunodeficiency virus [HIV] infection status; Z88.1 Allergy status to other antibiotic agents; Z88.2 Allergy status to sulfonamides; Z88.8 Allergy status to other drugs, medicaments and biological substances
CPT/HCPCS: 80048; 85610; 85730; 0240U; 74176; 71045

== ENCOUNTER 2022-05-04 16:03 | Emergency (ER) | payer OTHER ==
--- OUTSIDE RECORDS SUMMARY | 2022-05-04 16:20 | XMS REPORT | Continuity of Care Document ---
:1955 Author Organization [facility] t Address [address] [place] [address] Care Team Providers Name Role Phone Urmila Rahman Primary Care Physician ELAN LIRA Attending Clinician Unavailable BEVERLY LAYTON Attending Clinician Unavailable SANTIAGO CARDENAS Attending Clinician Unavailable PAULETTE GRAY S Attending Clinician Unavailable Paulette Galvan S Attending Clinician UNKNOWN, ATTENDING Attending Clinician Unavailable Robbi Bal Attending Clinician Santiago Sanchez Attending Clinician [facility] Attending Clinician Unavailable Isaias Whiteside RN Attending Clinician Unavailable TOMY MARIE Attending Clinician Unavailable Reilly Means MD Attending Clinician Ofe Shields MD Attending Clinician Tomy Marie MD Attending Clinician Doctor Unassigned, [employer] Attending Clinician Unavailable Bill COLES Attending Clinician Unavailable Bill Rose Attending Clinician CHARITY MCALLISTER Attending Clinician Unavailable Charity Mcallister MD Attending Clinician GADIEL KOEHLER Attending Clinician Unavailable Mike Lund Attending Clinician Unavailable NIKOLAI REEVES Attending Clinician Unavailable Eliseo Arce MD Attending Clinician Carol Ann IZQUIERDO, Sarai Lieberman Attending Clinician [phone] Ashly Pelletier MA Attending Clinician Unavailable Dagoberto Bass MD Attending Clinician [place] Evangelista Attending Clinician Lab, [facility] Attending Clinician Unavailable Monica Rodas MA Attending Clinician Unavailable Agustina Ortiz MA Attending Clinician Unavailable Rody Maguire RN Attending Clinician Unavailable Kirit Flood MD, V. Attending Clinician [place] Attending Clinician Unavailable Gloria Hinojosa Attending Clinician Michael Hagen RN Attending Clinician Unavailable Team, [facility] Attending Clinician UnavailDO PORSHA Newell Attending Clinician Unavailable Gadiel Koehler MD Attending Clinician Tyrone JENKINS, Eveline Sierra Attending Clinician Stanislav RAMIREZ, Eladio Inman Attending Clinician Unavailable Leyda Willis Attending Clinician Selvin RAMIREZ, Stefanie Attending Clinician Unavailable TOMY MARIE Admitting Clinician Unavailable Becca JENKINS, Tomy Admitting Clinician Bill COLES Admitting Clinician Unavailable RahmanLele bird Kristen Admitting Clinician Unavailable Mike Lund Admitting Clinician Unavailable ELISEO ARCE Admitting Clinician Unavailable DO PORSHA STREETER Admitting Clinician Unavailable Payers Payer Name Policy Type Policy Number Effective Date Expiration Date S gabino [facility] [id number] 2012 STAR PLUS OON 00:00:[address] [facility] [id number] 2019 DUAL COMPLETE HMO 00:00:00 [facility] [id number] 2019 PLUS 00:00:00 MEDICAID [facility] [id number] 2020 00:00:00 [employer] [facility] [id number] 2019 [facility] 00:00:00 [employer] MEDICARE ADV [id number] 2019 2019 00:00:00 00:00:00 Problems Condition Condition Condition Status Onset Resolution Last Treating Co mments Source Name Details Category Date Date Treatment Clinician Date Dyspnea, Dyspnea, Disease Active Unive rs unspecifie unspecifie 02-11 it y of d type d type 00:00: [place] [address] Medical Branch Gastropare Gastropare Disease Active Overview : Methodi sis sis 4-[address] 00:00: [facility] 00 note l might be different from the original. Added automatic ally from request for surgery [id number] Dysphagia Dysphagia Disease Active Overview: Methodi 4-[address] 00:00: [facility] this [facility] 00 note l might be different from the original. Added automatic ally from request for surgery [id number] CCL / EPS CCL / EPS Diagnosis Active 2020-10-15 Memoria PVI PVI 3-30 17:07:00 l ABLATION ABLATION 00:00: Patel n W/ CARTO / W/ CARTO / 00 GA / T GA / T Active 08/19/2020 [facility] Food Food Disease Active 2019-05 [...] (BMI 2-19 ity of 30-39.9) 30-39.9) 00:00: [place] [facility] Anemia Anemia Disease Active 2014-05 Univers 0-03 ity of 00:00: [place] [facility] Hypovolemi Hypovolemi Disease Active 2014-05 U nivers a due to a due to 0-02 ity of hemorrhage hemorrhage 00:00: [place] [facility] [place] Chest pain Chest pain Disease Active 2014-05 U nivers 0-02 ity of 00:00: [place] [facility] 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:00: [place] shoulder shoulder 00 Medica l arthroplas arthroplas Br anch ty ty Posttrauma Posttrauma Disease Active U nivers tic stress tic stress 08 it y of disorder disorder 00:00: [place] [facility] 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 00:00: [place] virus virus Medical (HIV) (HIV) Branch disease disease Bipolar 2 Bipolar 2 Disease Active Uni vers disorder disorder 11-18 ity of 00:00: [place] [facility] Chronic Chronic Disease Active Univers hepatitis hepatitis 11-18 ity of C C 00:00: [place] [facility] Hypertensi Hypertensi Disease Active U nivers on on 11-18 ity of 00:00: [place] [facility] Allergies, Adverse Reactions, Alerts Allergy Allergy Status Severity Reaction(s) Onset Inactive Treating Comm ents Source Name Type Date Date Clinician sulfamet DA Active SV N/V [facility] hoxazole 1-25 Clear 00:00: [address] trimetho DA Active SV [facility] prim 1-25 Clear 00:00: Garcia [facility] codeine DA Active SV N/V [facility] 1-25 Clear 00:00: Garcia [facility] Metoclop Propensi Active [place] ramide [...] Date Stop Date Source Natural father Diabetes [facility] Natural father Other - see comments [facility] Natural father Coronary [facility] Natural [facility] Hy[facility] Natural mother Pentecostalism [facility] Social History Social Habit Start Date Stop Date Quantity Comments Source History SDOH [facility] Alcohol Frequency Hospita l History SDOH [facility] Alcohol Std Drinks Hospit al History SDOH [facility] Alcohol [facility] Tobacco use and 2022-02-11 2022-02-11 Former smokeless Uni versity of exposure 00:00:00 00:00:00 tobacco user [facility] Tobacco Comment 2022-02-11 2022-02-11 Smokes approx 1-2 Un iversity of 00:00:00 00:00:00 cigarettes per [facility] day when she Branch smokes Exposure to 2022-01-31 2022-02-10 Not sure University of SARS-CoV-2 (event) 00:00:00 22:53:00 [facility] Alcohol intake 2020-12-08 2020-12-08 Current drinker [facility]o dist 00:00:00 00:00:00 of alcohol Hospital (finding) Cigarettes smoked 2020-09-05 2020-09-[address] current (pack per 00:00[facility]00 [facility] - Reported Cigarette 2020-09-05 2020-09-05 Pentecostalism pack-years 00:00:00 00:00:00 Hospital Alcohol Comment 2016-09-23 2016-09-23 rare [facility]ost[facility]ism 00:00:00 00:00:00 Hospital History of tobacco 2011-09-29 User of smokeless University of use 00:00:00 tobacco [facility] Sex Assigned At [birth year] [facility] [...] 04/22/22 at 1645, Routine amoxicillin 2021-05 Yes [id number] 1{tbl} Take 1 Univers -clavulanat 2- [id number] tablet by i ty of e 875-125 00:00: mouth [place] mg per 00 every 12 Medical tablet (twelve) Branch hours. ondansetron 2021-05 Yes [id number] 4mg Take 1 Univers 4 mg 06-23 [id number] tablet by ity of disintegrat 00:00: mouth [place] ing tablet 00 every 8 Medica l (eight) Branch hours as needed for Nausea and Vomiting (N/V). zoster 2021-05- Yes [id number] .5mL 0.5 mL by Univers vaccine, 0-05 03- 9104 Intramuscu ity of recombinant 00:00: 04:59 lar route [place] (SHINGRIX, 00 :00 once now Medic al PF,) for 1 Branch injection dose. And repeat in 2-6 months zoster 2021-05- No [id number] .5mL 0.5 mL by Univers vaccine, 0-05 03- 9104 Intramuscu ity of recombinant 00:00: 04:59 lar route [place] (SHINGRIX, 00 :00 once now Medic al PF,) for 1 Branch injection dose. And repeat in 2-6 months zoster 2021-05- No [id number] .5mL 0.5 mL by Univers vaccine, 0-05 [...] o f 1 mg tablet 19:28: at [place] [address] bedtime. Medical Branch traZODone 2021-0 Yes 50mg Take 50 mg Un matt 100 mg 9-27 by mouth ity of tablet 19:28: at [place] [address] bedtime. Medical Branch hydralAZINE 2021-0 Yes 25mg [...] o f 1 mg tablet 19:28: at [place] [address] bedtime. Medical Branch traZODone 2021-0 Yes 50mg Take 50 mg Un matt 100 mg 9-27 by mouth ity of tablet 19:28: at [place] [address] bedtime. Medical Branch hydralAZINE 2021-0 Yes 25mg [...] o f 1 mg tablet 19:28: at [place] [address] bedtime. Medical Branch traZODone 2021-0 Yes 50mg Take 50 mg Un matt 100 mg 9-27 by mouth ity of tablet 19:28: at [place] [address] bedtime. Medical Branch hydralAZINE 2021-0 Yes 25mg [...] o f 1 mg tablet 19:28: at [place] [address] bedtime. Medical Branch traZODone 2021-0 Yes 50mg Take 50 mg Un matt 100 mg 9- by mouth ity of tablet 19:28: at [place] [address] bedtime. Medical Branch hydralAZINE 2021-0 Yes 25mg [...] o f 1 mg tablet 19:28: at [place] [address] bedtime. Medical Branch traZODone 2021-0 Yes 50mg Take 50 mg Un matt 100 mg 9-27 by mouth ity of tablet 19:28: at [place] [address] bedtime. Medical Branch hydralAZINE 2021-0 Yes 25mg [...] 100 mg 04 (two) Medical tablet times [place] daily. amLODIPine 2021-0 Yes 10mg Take 10 mg U nivers (NORVASC) 9-27 by mouth ity of 10 mg 19:28: daily. [place] tablet 04 Medical Branch clonazePAM 2021-0 Yes 1mg Take 1 mg Un matt (KLONOPIN) 9-27 by mouth ity o f 1 mg tablet 19:28: at [place] [address] bedtime. Medical Branch traZODone 2021-0 Yes 50mg Take 50 mg Un matt 100 mg 9-27 by mouth ity of tablet 19:28: at [place] [address] bedtime. Medical Branch hydralAZINE 2021-0 Yes 25mg [...] o f 1 mg tablet 19:28: at [place] [address] bedtime. Medical Branch traZODone 2021-0 Yes 50mg Take 50 mg Un matt 100 mg 9-27 by mouth ity of tablet 19:28: at [place] [address] bedtime. Medical Branch hydralAZINE 2021-0 Yes 25mg [...] o f 1 mg tablet 19:28: at [place] [address] bedtime. Medical Branch traZODone 2021-0 Yes 50mg Take 50 mg Un matt 100 mg 9-27 by mouth ity of tablet 19:28: at [place] [address] bedtime. Medical Branch hydralAZINE 2021-0 Yes 25mg [...] 100 mg 04 (two) Medical tablet times [place] daily. amLODIPine Yes 10mg Take 10 mg U nivers (NORVASC) 9- by mouth ity of 10 mg 19:28: daily. [place] tablet 04 Medical Branch clonazePAM Yes 1mg Take 1 mg Un matt (KLONOPIN) 02-16 by mouth ity o f 1 mg tablet 19:28: at [place] [address] bedtime. Medical Branch traZODone Yes 50mg Take 50 mg Un matt 100 mg 02-16 by mouth ity of tablet 19:28: at [place] [address] bedtime. Medical Branch cefpodoxime 2021- Yes [id number] 200mg Take 1 Univers 200 mg 02-16 tablet by ity of tablet 00:00: 04:59 mouth in [place] 00 :00 the Medical morning Branch and 1 tablet in the evening. Do all this for 3 days. cefpodoxime 2021- Yes [id number] 200mg Take 1 Univers 200 mg -18 03- tablet by ity of tablet 00:00: 04:59 mouth in [place] 00 :00 the Medical morning Branch and [...] First dose [place] 00 on [facility] 02/13/22 at Branch 1200, Until Discontinu ed, Routine tiZANidine Yes 4mg 4 mg, Univer s (ZANAFLEX) 02-12 Oral, Q8H, ity of tablet 4 mg 19:00: First dose [place] 00 on Tue [facility] 02/12/22 at Branch 1400, Until Discontinu ed, Routine HYDROmorpho Yes 4mg 4 mg, Unive rs ne 02-12 Oral, ity of (DILAUDID) 17:37: Q6HPRN, [facility] s tablet 4 mg 07 Starting Medi porfirio on Tue [place] 02/12/22 at 1237, Until Discontinu ed, Routine, Pain (scale 4-6) morpHINE (2 2021- No 2mg 2 mg, Slow Univers mg/mL) 02-12 IV Push, ity of injection 2 17:36: 20:36 Q6HPRN, [place] mg 46 :24 Starting Medical on Tue [place] 02/12/22 at 1236, Until 02/14/22 at 1536, Routine, Pain (scale 7-10) cefTRIAXone 202- No 2000mg 2,000 mg, Univers (ROCEPHIN) 02-12 IV ity of 2,000 mg in 17:00: 18:24 Piggyback, [place] NaCl 0.9% 00 :00 Q24H ABX, Medic [...] [place] mg 37 Starting Medical on [facility] Branch 02/11/22 at 1618, Until Discontinu ed, Routine, SBP > 170 nystatin-tr 2021-0 Yes Topical, Un matt iamcinolone 02-11 TID, First it y of (MYCOLOG) 19:00: dose on [place] cream 00 [facility] Medical 02/11/22 at Branch 1400, Until Discontinu ed, Routine busPIRone 2021-0 Yes 30mg 30 mg, Univer s (BUSPAR) 02-11 Oral, BID, ity o f tablet 30 18:00: First dose [place] mg 00 on [facility] Medical 02/11/22 at Branch 1300, Until Discontinu ed, Routine raltegravir 2021-0 Yes 400mg 400 mg, Un matt (ISENTRESS) 02-11 Oral, BID, it y of tablet 400 18:00: First dose [place] mg 00 on [facility] 02/11/22 at Branch 1300, Until Discontinu ed, JOE metoprolol 2021-0 Yes 100mg 100 mg, Uni vers tartrate 02-11 Oral, BID, ity o f (LOPRESSOR) 18:00: First dose [place] tablet 100 00 on [facility] Medical mg 02/11/22 at Branch 1300, Until Discontinu ed, Routine lisinopriL 2021-0 Yes 40mg 40 mg, Unive rs (PRINIVIL,Z 02-11 Oral, BID, it y of ESTRIL) 18:00: First [place] tablet 40 00 on [facility] Medical mg 02/11/22 at Branch 1300, Until Discontinu ed, Routine emtricitabi 2021-0 Yes 1{tbl} 1 tablet, Univers ne-tenofovi 02-11 Oral, ity of r alafen 18:00: DAILY, [place] (DESCOVY) 00 First dose Medi porfirio tablet 1 on [facility] tablet 02/11/22 at 1300, Until Discontinu ed, Routine ipratropium 2021-0 Yes .5mg 0.5 mg, Uni vers (ATROVENT) 02-11 Inhalation ity of 0.02 % 17:57: , QIDPRN, [place] nebulizer 10 Starting Medica l solution on [facility] Branch 0.5 mg 02/11/22 at 1257, Until Discontinu ed, Routine, Wheezing, Shortness of Breath amLODIPine Yes 10mg 10 mg, Unive rs (NORVASC) 02-11 Oral, ity of tablet 10 17:30: DAILY, [place] mg 00 First dose Medical (after Branch last modificati on) on [facility] 02/11/22 at 1230, Until Discontinu ed, Routine hydrALAZINE 2021- No 25mg 25 mg, Uni vers (APRESOLINE 02-11 Oral, ity of ) tablet 25 17:30: 12:54 DAILY, [place] mg 00 :55 First dose Medical (after Branch last modificati on) on [facility] 02/11/22 at 1230, Until Discontinu ed, Routine HYDROcodone 2021- No 1{tbl} 1 tablet, Univers -acetaminop 02-11 Oral, ity of hen (NORCO 14:11: 17:37 Q6HPRN, [place] 5) 5-325 mg 03 :24 Starting Medi porfirio tablet 1 on [facility] Branch tablet 02/11/22 at 0911, Until Tue02/12/22 at 1237, Routine, Pain (scale 7-10) melatonin Yes 3mg 3 mg, Univers (MELATIN) 02-11 Oral, ity of tablet 3 mg 14:08: QHSPRN, [place] 17 Starting Medical on [facility] Branch 02/11/22 at 0908, Until Discontinu ed, Routine, Insomnia acetaminoph 2021- No 1{tbl} 1 tablet, Univers en-codeine 02-11 Oral, ity of (TYLENOL 14:06: 17:37 Q6HPRN, [place] #3) 300-30 19 :24 Starting Medic al mg tablet 1 on [facility] Branch tablet 02/11/22 at 0906, Until Tue02/12/22 at 1237, Routine, Pain (scale 4-6) sennosides- Yes 1{tbl} 1 tablet, Univers docusate 02-11 Oral, ity of sodium 14:06: QDAILYPRN, [place] (SENOKOT-S) 09 Starting Medi porfirio 8.6-50 mg on [facility] per tablet 02/11/22 at 1 tablet 0906, Until Discontinu ed, Routine, Constipati on ondansetron 2021-0 Yes 4mg 4 mg, Slow Univers (ZOFRAN 02-11 IV Push, ity of (PF)) 14:05: Q6HPRN, [place] injection 4 59 Starting Medi porfirio mg on [place] Branch 02/11/22 at 0905, Until Discontinu ed, Routine, Nausea and Vomiting (N/V) acetaminoph 2021-0 Yes 650mg 650 mg, Un matt en 02-11 Oral, ity of (TYLENOL) 14:04: Q6HPRN, [place] tablet 650 37 Starting Medic al mg [...] ity of ) 25 mg 09:10: daily. [address] amLODIPine 0 Yes 10mg Take 10 mg U nivers (NORVASC) 02-11 by mouth ity of 10 mg 09:10: daily. [address] Branch piperacilli 2021-0 202- No 3.375g [...] therapy: 72 hours iopamidol 2022-0 2022- No [id number] 60mL 60 mL, Univers (ISOVUE 02-11 Intravenou [...] 00 :00 dose, On Medi porfirio mg [facility] Branch 02/11/22 at 0045, JOE acetaminoph 2021- No 975mg 975 mg, U nivers en 02-11 Oral, ity of (TYLENOL) 05:15: 04:19 ONCE, 1 [place] tablet 975 00 :00 dose, On Medic al mg [facility] Branch 02/11/22 at 0015, JOE emtricitabi 0 Yes [id number] Take one Univers ne-tenofovi 9-12 po daily ity of r alafen 00:00: [place] (DESCOVY) 00 Medical tablet Branch emtricitabi 0 Yes [id number] Take one Univers ne-tenofovi 9-12 po daily ity of r alafen 00:00: [place] (DESCOVY) 00 Medical tablet Branch emtricitabi 0 Yes [id number] Take one Univers ne-tenofovi 9-12 po daily ity of r alafen 00:00: [place] (DESCOVY) 00 Medical tablet Branch emtricitabi Yes [id number] Take one Univers ne-tenofovi 9-12 po daily ity of r alafen 00:00: [place] (DESCOVY) 00 Medical tablet Branch emtricitabi Yes [id number] Take one Univers ne-tenofovi 9-12 po daily ity of r alafen 00:00: [place] (DESCOVY) 00 Medical tablet Branch emtricitabi Yes [id number] Take one Univers ne-tenofovi 9-12 po daily ity of r alafen 00:00: [place] (DESCOVY) 00 Medical tablet Branch emtricitabi Yes [id number] Take one Univers ne-tenofovi 9-12 po daily ity of r alafen 00:00: [place] (DESCOVY) 00 Medical tablet Branch emtricitabi Yes [id number] Take one Univers ne-tenofovi 9-12 po daily ity of r alafen 00:00: [place] (DESCOVY) 00 Medical tablet Branch emtricitabi Yes [id number] Take one Univers ne-tenofovi 9-12 po daily ity of r alafen 00:00: [place] (DESCOVY) 00 Medical tablet Branch emtricitabi Yes [id number] Take one Univers ne-tenofovi 9-12 po daily ity of r alafen 00:00: [place] (DESCOVY) 00 Medical tablet Branch naproxen 0 Yes [id number] 500mg Take 1 U nivers (NAPROSYN) 7-24 tablet by ity of 500 mg 00:00: mouth in [place] tablet 00 the Medical morning Branch and 1 tablet in the evening. Take with meals. methocarbam Yes [id number] 500mg Take 1 Univers oL 500 mg 7-24 tablet by ity o f tablet 00:00: mouth 4 [place] 00 (four) Medical times Branch daily. naproxen Yes [id number] 500mg Take 1 U nivers (NAPROSYN) 7-24 tablet by ity of 500 mg 00:00: mouth in [place] tablet 00 the Medical morning Branch and 1 tablet in the evening. Take with meals. methocarbam 2021-0 Yes [id number] 500mg Take 1 Univers oL 500 mg 7-24 tablet by ity o f tablet 00:00: mouth 4 [place] 00 (four) Medical times Branch daily. naproxen 2021-0 Yes [id number] 500mg Take 1 U nivers (NAPROSYN) 7-24 tablet by ity of 500 mg 00:00: mouth in [place] tablet 00 the Medical morning Branch and 1 tablet in the evening. Take with meals. methocarbam 2021-0 Yes [id number] 500mg Take 1 Univers oL 500 mg 7-24 tablet by ity o f tablet 00:00: mouth 4 [place] 00 (four) Medical times [place] daily. naproxen 2021-0 2021- No [id number] 500mg Take 1 Univers (NAPROSYN) 7-24 10-14 tablet by ity of 500 mg 00:00: 00:00 mouth in [place] tablet 00 :00 the Medical morning Branch and 1 tablet in the evening. Take with meals. methocarbam 2021-0 2021- No [id number] 500mg Take 1 Univers oL 500 mg 7-24 10-14 tablet by ity of tablet 00:00: 00:00 mouth 4 [place] 00 :00 (four) [facility] times [place] daily. naproxen 2021-0 2- No [id number] 500mg Take 1 Univers (NAPROSYN) 7-24 10-14 tablet by ity of 500 mg 00:00: 00:00 mouth in [place] tablet 00 :00 the Medical morning Branch and 1 tablet in the evening. Take with meals. methocarbam 2021-0 2022- No [id number] 500mg Take 1 Univers oL 500 mg 7-24 10-14 tablet by ity of tablet 00:00: 00:00 mouth 4 [place] 00 :00 (four) Medical times [place] daily. esomeprazol 2021-2- No 40mg Take 40 [...] Medical daily. Branch traZODONE No Take by [place] [facility] ers (DESYREL) 11-20 mouth at ity o f 10 mg/mL 09:10: 00:00 [place]time. [place] oral 28 :00 Medical suspension Branch hydralAZINE Yes 25mg Take 25 mg Univers (APRESOLINE 11-20 by mouth ity of ) 25 mg 08:47: daily. [place] tablet 47 Medical Branch cephALEXin 2021- No [id number] 500mg Take 1 Univers (KEFLEX) 10-24 capsule [...] 7-10). Indication s: acute pain buPROPion Yes [id number] 150mg Take 1 U nivers XL 4-12 tablet by ity of (WELLBUTRIN 00:00: mouth [place] XL) 150 mg 00 daily. Medical 24 hr Branch tablet busPIRone Yes [id number] 30mg Take 1 Un matt 30 mg 4-12 tablet by ity of tablet 00:00: mouth 2 [place] 00 (two) Medical times Branch daily. SERTraline Yes [id number] 200mg Take 2 Univers 100 mg 4-12 tablets by ity of tablet 00:00: mouth [place] 00 daily. Medical Branch buPROPion Yes [id number] 150mg Take 1 U nivers XL 4-12 tablet by ity of (WELLBUTRIN 00:00: mouth [place] XL) 150 mg 00 daily. Medical 24 hr Branch tablet busPIRone Yes [id number] 30mg Take 1 Un matt 30 mg 4-12 tablet by ity of tablet 00:00: mouth 2 [place] 00 (two) Medical times Branch daily. SERTraline 0 Yes [id number] 200mg Take 2 Univers 100 mg 4-12 tablets by ity of tablet 00:00: mouth [place] 00 daily. Medical Branch buPROPion 0 Yes [id number] 150mg Take 1 U nivers XL 4-12 tablet by ity of (WELLBUTRIN 00:00: mouth [place] XL) 150 mg 00 daily. Medical 24 hr Branch tablet busPIRone Yes [id number] 30mg Take 1 Un matt 30 mg 4-12 tablet by ity of tablet 00:00: mouth 2 [place] 00 (two) Medical times Branch daily. SERTraline Yes [id number] 200mg Take 2 Univers 100 mg 4-12 tablets by ity of tablet 00:00: mouth [place] 00 daily. Medical Branch buPROPion Yes [id number] 150mg Take 1 U nivers XL 4-12 tablet by ity of (WELLBUTRIN 00:00: mouth [place] XL) 150 mg 00 daily. Medical 24 hr Branch tablet busPIRone Yes [id number] 30mg Take 1 Un matt 30 mg 4-12 tablet by ity of tablet 00:00: mouth 2 [place] 00 (two) Medical times Branch daily. SERTraline Yes [id number] 200mg Take 2 Univers 100 mg 4-12 tablets by ity of tablet 00:00: mouth [place] 00 daily. Medical Branch buPROPion 0 Yes [id number] 150mg Take 1 U nivers XL 4-12 tablet by ity of (WELLBUTRIN 00:00: mouth [place] XL) 150 mg 00 daily. Medical 24 hr Branch tablet busPIRone 0 Yes [id number] 30mg Take 1 Un matt 30 mg 4-12 tablet by ity of tablet 00:00: mouth 2 [place] 00 (two) Medical times Branch daily. SERTraline 0 Yes [id number] 200mg Take 2 Univers 100 mg 4-12 tablets by ity of tablet 00:00: mouth [place] 00 daily. Medical Branch buPROPion 0 Yes [id number] 150mg Take 1 U nivers XL 4-12 tablet by ity of (WELLBUTRIN 00:00: mouth [place] XL) 150 mg 00 daily. Medical 24 hr Branch tablet busPIRone 2021-0 Yes [id number] 30mg Take 1 Un matt 30 mg 4-12 tablet by ity of tablet 00:00: mouth 2 00 (two) Medical times Branch daily. SERTraline 2021-0 Yes [id number] 200mg Take 2 Univers 100 mg 4-12 tablets by ity of tablet 00:00: mouth [place] 00 daily. Medical Branch buPROPion 2021-0 Yes [id number] 150mg Take 1 U nivers XL 4-12 tablet by ity of (WELLBUTRIN 00:00: mouth [place] XL) 150 mg 00 daily. Medical 24 hr Branch tablet busPIRone 2021-0 Yes [id number] 30mg Take 1 Un matt 30 mg 4-12 tablet by ity of tablet 00:00: mouth 2 (two) Medical times Branch daily. SERTraline 2021-0 Yes [id number] 200mg Take 2 Univers 100 mg 4-12 tablets by ity of tablet 00:00: mouth [place] 00 daily. Medical Branch buPROPion 2021-0 Yes [id number] 150mg Take 1 U nivers XL 4-12 tablet by ity of (WELLBUTRIN 00:00: mouth [place] XL) 150 mg 00 daily. Medical 24 hr Branch tablet busPIRone 2021-0 Yes [id number] 30mg Take 1 Un matt 30 mg 4-12 tablet by ity of tablet 00:00: mouth 2 00 (two) Medical times Branch daily. SERTraline 2021-0 Yes [id number] 200mg Take 2 Univers 100 mg 4-12 tablets by ity of tablet 00:00: mouth [place] 00 daily. Medical Branch buPROPion 2021-0 Yes [id number] 150mg Take 1 U nivers XL 4-12 tablet by ity of (WELLBUTRIN 00:00: mouth [place] XL) 150 mg 00 daily. Medical 24 hr Branch tablet busPIRone 2021-0 Yes [id number] 30mg Take 1 Un matt 30 mg 4-12 tablet by ity of tablet 00:00: mouth 2 00 (two) Medical times Branch daily. SERTraline 2021-0 Yes [id number] 200mg Take 2 [facility] 100 mg 4-12 tablets by ity of tablet 00:00: mouth [place] 00 daily. Medical Branch buPROPion 2021-0 Yes [id number] 150mg Take 1 U nivers XL 4-12 tablet by ity of (WELLBUTRIN 00:00: mouth [place] XL) 150 mg 00 daily. Medical 24 hr Branch tablet busPIRone 2021-0 Yes [id number] 30mg Take 1 Un matt 30 mg 4-12 tablet by ity of tablet 00:00: mouth 2 [place] 00 (two) Medical times Branch daily. SERTraline 2021-0 Yes [id number] 200mg Take 2 [facility] 100 mg 4-12 tablets by ity of tablet 00:00: mouth [place] 00 daily. Medical Branch buPROPion 2021-0 Yes [id number] 150mg Take 1 U nivers XL 4-12 tablet by ity of (WELLBUTRIN 00:00: mouth [place] XL) 150 mg 00 daily. Medical 24 hr Branch tablet busPIRone 2021-0 Yes [id number] 30mg Take 1 Un matt 30 mg 4-12 tablet by ity of tablet 00:00: mouth 2 [place] 00 (two) Medical times Branch daily. SERTraline 2021-0 Yes [id number] 200mg Take 2 [facility] 100 mg 4-12 tablets by ity of tablet 00:00: mouth [place] 00 daily. Medical Branch raltegravir 2021-0 Yes [id number] 400mg Take 1 [facility] (ISENTRESS) 3-28 tablet by ity of 400 mg 00:00: mouth 2 [place] tablet 00 (two) Medical times Branch daily. raltegravir 2021-0 Yes [id number] 400mg Take 1 [facility] (ISENTRESS) 3-28 tablet by ity of 400 mg 00:00: mouth 2 [place] tablet 00 (two) Medical times Branch daily. raltegravir 2021-0 Yes [id number] 400mg Take 1 [facility] (ISENTRESS) 3-28 tablet by ity of 400 mg 00:00: mouth 2 [place] tablet 00 (two) Medical times Branch daily. raltegravir 2021-0 Yes [id number] 400mg Take 1 [facility] (ISENTRESS) 3-28 tablet by ity of 400 mg 00:00: mouth 2 [place] tablet 00 (two) Medical times Branch daily. raltegravir 2021-0 Yes [id number] 400mg Take 1 [facility] (ISENTRESS) 3-28 tablet by ity of 400 mg 00:00: mouth 2 [place] tablet 00 (two) Medical times Branch daily. raltegravir 2021-0 Yes [id number] 400mg Take 1 [facility] (ISENTRESS) 3-28 tablet by ity of 400 mg 00:00: mouth 2 [place] tablet 00 (two) Medical times Branch daily. raltegravir 2021-0 Yes [id number] 400mg Take 1 [facility] (ISENTRESS) 3-28 tablet by ity of 400 mg 00:00: mouth 2 [place] tablet 00 (two) Medical times Branch daily. raltegravir 2021-0 Yes [id number] 400mg Take 1 [facility] (ISENTRESS) 3-28 tablet by ity of 400 mg 00:00: mouth 2 [place] tablet 00 (two) Medical times Branch daily. raltegravir 2021-0 Yes [id number] 400mg Take 1 [facility] (ISENTRESS) 3-28 tablet by ity of 400 mg 00:00: mouth 2 [place] tablet 00 (two) Medical times Branch daily. raltegravir 2021-0 Yes [id number] 400mg Take 1 [facility] (ISENTRESS) 3-28 tablet by ity of 400 mg 00:00: mouth 2 [place] tablet 00 (two) Medical times Branch daily. raltegravir 2021-0 Yes [id number] 400mg Take 1 [facility] (ISENTRESS) 3-28 tablet by ity of 400 mg 00:00: mouth 2 [place] tablet 00 (two) Medical times Branch daily. LORazepam 1 2021- No [id number] 1mg Take 1 [facility] mg tablet 3-21 [...] times a tablet day. emtricitabi 2021- No [id number] Take one [facility] ne-tenofovi 1-20 09-12 po daily ity of r alafen 00:00: 00:00 [place] (DESCOVY) 00 :00 Medical tablet Branch metoprolol Yes [id number] Take 1 [facility] tartrate 7-26 tablet [facility] (Lopressor) 00:00: (100 mg 100 MG 00 total) by tablet mouth 2 (two) times a day AND 0.5 tablets (50 mg total) every night. metoprolol Yes [id number] Take 1 [facility] tartrate 7-26 tablet [facility] [...] (affected area in groin) hydrALAZINE Yes 50mg Q.[id number] Take 50 mg [facility] (APRESOLINE 7-19 [id number] mouth [facility] ) 50 MG [...] area in groin) hydrALAZINE 0 Yes 50mg Q.[id number] Take 50 mg [facility] (APRESOLINE 7-19 [id number] mouth [facility] ) 50 MG [...] (affected area in groin) hydrALAZINE Yes 50mg Q.[id number] Take 50 mg [facility] (APRESOLINE 7-19 [id number] mouth [facility] ) 50 MG [...] area in groin) hydrALAZINE 0 Yes 50mg Q.[id number] Take 50 mg [facility] (APRESOLINE 7-19 [id number] mouth [facility] ) 50 MG [...] area in groin) hydrALAZINE 2020-0 Yes 50mg Q.[id number] Take 50 mg [facility] (APRESOLINE 7-19 [id number] mouth [facility] ) 50 MG [...] (affected area in groin) hydrALAZINE Yes 50mg Q.[id number] Take 50 mg [facility] (APRESOLINE 7-[id number] mouth [facility] [address] ) 50 MG [...] area in groin) hydrALAZINE 0 Yes 50mg Q.[id number] Take 50 mg [facility] (APRESOLINE 7-[id number] mouth [facility] ) 50 MG [...] area in groin) hydrALAZINE 0 Yes 50mg Q.[id number] Take 50 mg [facility] (APRESOLINE 7-19 [id number] mouth [facility] ) 50 MG [...] (affected area in groin) hydrALAZINE Yes 50mg Q.[id number] Take 50 mg [facility] (APRESOLINE 7-[id number] mouth [facility] ) 50 MG [...] (affected area in groin) hydrALAZINE Yes 50mg Q.[id number] Take 50 mg [facility] (APRESOLINE 7-19 [id number] mouth [facility] ) 50 MG [...] area in groin) hydrALAZINE 0 Yes 50mg Q.[id number] Take 50 mg [facility] (APRESOLINE 7-[id number] mouth [facility] ) 50 MG [...] area in groin) hydrALAZINE 0 Yes 50mg Q.[id number] Take 50 mg [facility] (APRESOLINE 7-19 [id number] [address] mouth [facility] ) 50 MG [...] (affected area in groin) hydrALAZINE Yes 50mg Q.[id number] Take 50 mg [facility] (APRESOLINE 7-19 [id number] mouth [facility] ) 50 MG [...] area in groin) hydrALAZINE 0 Yes 50mg Q.[id number] Take 50 mg [facility] (APRESOLINE 7-[id number] mouth [address] ) 50 MG [...] area in groin) hydrALAZINE 0 Yes 50mg Q.[id number] Take 50 mg [facility] (APRESOLINE 7-19 [id number] mouth [facility] ) 50 MG [...] (affected area in groin) hydrALAZINE Yes 50mg Q.[id number] Take 50 mg [facility] (APRESOLINE 7-19 [id number] mouth [facility] ) 50 MG [...] (affected area in groin) hydrALAZINE Yes 50mg Q.[id number] Take 50 mg [facility] (APRESOLINE 7-[id number] mouth [facility] ) 50 MG [...] area in groin) hydrALAZINE 0 Yes 50mg Q.[id number] Take 50 mg [facility] (APRESOLINE 7-[id number] mouth [address] ) 50 MG [...] (affected area in groin) hydrALAZINE Yes 50mg Q.[id number] Take 50 mg [facility] (APRESOLINE 7-[id number] mouth [facility] ) 50 MG [...] area in groin) hydrALAZINE 0 Yes 50mg Q.[id number] Take 50 mg [facility] (APRESOLINE 7-[id number] mouth [address] ) 50 MG [...] area in groin) hydrALAZINE 0 Yes 50mg Q.[id number] Take 50 mg [facility] (APRESOLINE 7-[id number] mouth [address] ) 50 MG [...] (affected area in groin) hydrALAZINE Yes 50mg Q.[id number] Take 50 mg [facility] (APRESOLINE 7-[id number] mouth [address] ) 50 MG [...] (affected area in groin) hydrALAZINE Yes 50mg Q.[id number] Take 50 mg [facility] (APRESOLINE 7-[id number] mouth [facility] [address] ) 50 MG [...] area in groin) hydrALAZINE 0 Yes 50mg Q.[id number] Take 50 mg [facility] (APRESOLINE 7-[id number] mouth [address] ) 50 MG [...] area in groin) hydrALAZINE 0 Yes 50mg Q.[id number] Take 50 mg [facility] (APRESOLINE 7-[id number] mouth [address] ) 50 MG [...] (affected area in groin) hydrALAZINE Yes 50mg Q.[id number] Take 50 mg [facility] (APRESOLINE 7-[id number] mouth [facility] ) 50 MG [...] [facility]ospita capsule 25 before l breakfast. amIODarone 1-0 Yes 200mg QD Take 200 Me [facility] (PACERONE) 7-[address] 200 MG 10:51: mouth [facility]osp[facility] tablet 25 daily. l lisinopril 2021-0 Yes 40mg Q.5D Take 40 mg M [facility] (PRINIVIL,Z 7-[address] ESTRIL) 40 10:51: (two) Hospit a mg tablet 25 times a l day. metoprolol 1-0 Yes 100mg Q.5D Take 100 [facility] tartrate 7-[address] (LOPRESSOR) 10:51: mouth 2 [facility] 100 mg 25 (two) l tablet times a day. amLODIPine 2020-0 Yes 10mg QD Take 10 mg M [facility] (NORVASC) 7-[address] 10 mg 10:51: daily. Hospita tablet 25 l nystatin-tr 1-0 Yes [id number] Apply to [facility] iamcinolone 7-06 area(s) 3 ity of cream 00:00: (three) [place] 00 times Medical daily. Branch nystatin-tr 2021-0 Yes [id number] Apply to [facility] iamcinolone 7-06 area(s) 3 ity of cream 00:00: (three) [place] 00 times Medical daily. Branch nystatin-tr 2021-0 Yes [id number] Apply to [facility] iamcinolone 7-06 area(s) 3 ity of cream 00:00: (three) [place] 00 times Medical daily. Branch nystatin-tr 2021-0 Yes [id number] Apply to [facility] iamcinolone 7-06 area(s) 3 ity of cream 00:00: (three) [place] 00 times Medical daily. Branch nystatin-tr 2021-0 Yes [id number] Apply to [facility] iamcinolone 7-06 area(s) 3 ity of cream 00:00: (three) [place] 00 times Medical daily. Branch nystatin-tr 2021-0 Yes [id number] Apply to [facility] iamcinolone 7-06 area(s) 3 ity of cream 00:00: (three) [place] 00 times Medical daily. Branch nystatin-tr 2021-0 Yes [id number] Apply to [facility] iainolone 7-06 area(s) 3 ity of cream 00:00: (three) [place] 00 times Medical daily. Branch nystatin-tr 2020-0 Yes [id number] Apply to [facility] iamcinolone 7-06 area(s) 3 ity of cream 00:00: (three) [place] 00 times Medical daily. Branch nystatin-tr 2020-0 Yes [id number] Apply to [facility] iamcinolone 7-06 area(s) 3 ity of cream 00:00: (three) [place] 00 times Medical daily. Branch nystatin-tr 2020-0 Yes [id number] Apply to [facility] iamcinolone 7-06 area(s) 3 ity of cream 00:00: (three) [place] 00 times Medical daily. Branch nystatin-tr 2020-0 Yes [id number] Apply to [facility] iainolone 7-06 area(s) 3 ity of cream 00:00: (three) [place] 00 times Medical daily. Branch budesonide- 2020-0 2020- No 1{puff} QD Inhale 1 [facility] formoteroL 6-25 06-[address] (SYMBICORT) 14:37: 00:00 morning. H ospita 160-4.5 02 :00 l mcg/actuati on inhaler hydrALAZINE Yes [id number] 50mg Q.[id number] Take 1 [facility] (Apresoline 6-11 [id number] tablet (50 Health ) 50 MG 00:00: 3D mg total) tablet 00 by mouth 3 (three) times a day. hydrALAZINE Yes [id number] 50mg Q.[id number] Take 1 [facility] (Apresoline 6-11 [id number] tablet (50 Health ) 50 MG 00:00: [...] % 00:00: ointment 00 nystatin 2020- No [id number] Q.25D Take 5 mL [facility] (MYCOSTATIN 10-06 [...] ia 4-10 (Same as: l 14:00: Norvasc) [place] 00 emtricitabi No Notes: Caesar lisa ne 200 MG / 4-10 (Same as: l tenofovir 14:00: Descovy) Herm ariel alafenamide 00 Non-formul 25 MG Oral nancy Tablet [Descovy] pantoprazol No Notes: [place] lisa e 4-10 Tablet l 14:00: should not [place] 00 be chewed or crushed. (Same as: [...] e 4-10 Tablet l 14:00: should not [place] 00 be chewed or crushed. (Same as: [...] ia 4-10 (Same as: l 14:00: Zoloft) [place] 00 pantoprazol No Notes: Caesar lisa e 4-10 Tablet l 14:00: should not [place] 00 be chewed or crushed. (Same as: Protonix) Amiodarone No Notes: Memor ia 4-10 (Same as: l 14:00: Cordarone) [place] Amlodipine No Notes: Memor ia 4-10 (Same as: l 14:00: Norvasc) [place] emtricitabi No Notes: Caesar lisa ne 200 MG / 4-10 (Same as: l tenofovir 14:00: Descovy) Herm ariel alafenamide 00 Non-formul 25 MG Oral nancy Tablet [Descovy] Sertraline No Notes: Memor ia 4-10 (Same as: l 14:00: Zoloft) [place] 00 pantoprazol No Notes: Caesar lisa e 4-10 Tablet l 14:00: should not [place] 00 be chewed or crushed. (Same as: Protonix) Amiodarone No Notes: Memor ia 4-10 (Same as: l 14:00: Cordarone) [place] Amlodipine No Notes: Memor ia 4-10 (Same as: l 14:00: Norvasc) [place] emtricitabi No Notes: Caesar lisa ne 200 MG / 4-10 (Same as: l tenofovir 14:00: Descovy) Herm ariel alafenamide 00 Non-formul 25 MG Oral nancy Tablet [Descovy] Sertraline No Notes: Memor ia 4-10 (Same as: l 14:00: Zoloft) [place] pantoprazol No Notes: Caesar lisa e 4-10 Tablet l 14:00: should not [place] 00 be chewed or crushed. (Same as: Protonix) Amiodarone No Notes: Memor ia 4-10 (Same as: l 14:00: Cordarone) [place] Amlodipine No Notes: Memor ia 4-10 (Same as: l 14:00: Norvasc) [place] emtricitabi No Notes: Caesar lisa ne 200 MG / 4-10 (Same as: l tenofovir 14:00: Descovy) Herm ariel alafenamide 00 Non-formul 25 MG Oral nancy Tablet [Descovy] Sertraline No Notes: Memor ia 4-10 (Same as: l 14:00: Zoloft) [place] pantoprazol No Notes: [place] lisa e 4-10 Tablet l 14:00: should not [place] 00 be chewed or crushed. (Same as: Protonix) Amiodarone No Notes: Memor ia 4-10 (Same as: l 14:00: Cordarone) [place] Amlodipine No Notes: Memor ia 4-10 (Same [...] M emoria 4-10 interfere l 02:00: w/enteral [place] 00 feeds - Take 1 hr before [...] M emoria 4-10 interfere l 02:00: w/enteral [place] 00 feeds - Take 1 hr before [...] Memoria 4-10 Same as: l 02:00: Eliquis [place] Hydralazine No Notes: Caesar lisa Hydrochlori 4-10 [...] 0.9% 4-10 (Same as: l 02:00: BD [place] 00 Posiflush) Eliquis No Notes: Memoria 4-10 [...] 0.9% 4-10 (Same as: l 02:00: BD [place] 00 Posiflush) Eliquis No Notes: Memoria 4-10 [...] not exceed l #3 00:12: 4gm/day of [place] acetaminop hen. (Same as: Tylenol with Codeine # 3) acetaminoph No Notes: Do M emoria en-codeine 4-10 not exceed l #3 00:12: 4gm/day of [place] acetaminop hen. (Same as: Tylenol with Codeine # 3) acetaminoph No Notes: Do M emoria en-codeine 4-10 not exceed l #3 00:12: 4gm/day of [place] acetaminop hen. (Same as: Tylenol with Codeine # 3) acetaminoph No Notes: Do M emoria en-codeine 4-10 not exceed l #3 00:12: 4gm/day of [place] acetaminop hen. (Same as: Tylenol with Codeine # 3) acetaminoph No Notes: Do M emoria en-codeine 4-10 not exceed l #3 00:12: 4gm/day of [place] acetaminop hen. (Same as: Tylenol with Codeine [...] oria - tab, l 22:00: Route: PO, [place] Drug form: TAB, BID, Dosing Weight 97.273, [...] 2020-0 No 40 mg, 1 Mem oria 08-29 tab, l 22:00: Route: PO, [place] 00 Drug form: TAB, BID, Dosing Weight 97.273, kg, Start date: 08/29/20 17:00:00 CDT, Duration: 30 day, Stop date: 09/28/20 9:00:00 CDT metoprolol 2020-0 No 100 mg, 1 Me moria tartrate - tab, l 22:00: Route: PO, [place] 00 Drug form: TAB, BID, Dosing Weight [...] tartrate 4-09 tab, l 22:00: Route: PO, [place] 00 Drug form: TAB, BID, Dosing Weight [...] tartrate 4-09 tab, l 22:00: Route: PO, [place] 00 Drug form: TAB, BID, Dosing Weight [...] tab, l Tablet 22:00: [facility]: [facility] form: TAB, BID, Dosing [...] Notes: Memoria 4-09 (Same l 17:07: as:MORPhin [place] 00 e Sulfate) Morphine No Notes: Memoria 4-09 (Same l 17:07: as:MORPhin [place] 00 e Sulfate) Morphine No Notes: Memoria 4-09 (Same l 17:07: as:MORPhin [place] 00 e Sulfate) Morphine No Notes: Memoria 4-09 (Same l 17:07: as:MORPhin [place] 00 e Sulfate) Morphine No Notes: Memoria 4-09 (Same l 17:07: as:MORPhin [place] 00 e Sulfate) Morphine No Notes: Memoria 4-09 (Same l 17:07: as:MORPhin [place] 00 e Sulfate) buPROPion 2020-0 No 150 [...] 08-29 Drug form: l 15:40: INJ, ONCE, [place] 00 Stop date: 08/29/20 10:40:00 CDT neostigmine [...] tab, PO, l oral 15:27: Daily, # [place] enteric 00 30 tab, 0 coated Refill(s), tablet Pharmacy: [facility] 149, 162.56, cm, 08/29/20 5:30:00 CDT, Height, 97.273, kg, 08/29/20 5:30:00 CDT, Weight pantoprazol 2020-0 Yes 40 mg = 1 M emoria e 40 mg 4-09 tab, PO, l oral 15:27: Daily, # [place] enteric 00 30 tab, 0 coated Refill(s), tablet [facility], 162.56, cm, 08/29/20 5:30:00 CDT, Height, 97.273, kg, 08/29/20 5:30:00 CDT, Weight pantoprazol 2021-0 Yes 40 mg = 1 M emoria e 40 mg 4-09 tab, PO, l oral 15:27: Daily, # [place] enteric 00 30 tab, 0 coated Refill(s), tablet [facility], 162.56, cm, 08/29/20 5:30:00 CDT, Height, 97.273, kg, 08/29/20 5:30:00 CDT, Weight pantoprazol 2021-0 Yes 40 mg = 1 M emoria e 40 mg 4-09 tab, PO, l oral 15:27: Daily, # [place] enteric 00 30 tab, 0 coated Refill(s), tablet [facility], 162.56, cm, 08/29/20 5:30:00 CDT, Height, 97.273, kg, 08/29/20 5:30:00 CDT, Weight pantoprazol 2021-0 Yes 40 mg = 1 M emoria e 40 mg 4-09 tab, PO, l oral 15:27: Daily, # [place] enteric 00 30 tab, 0 coated Refill(s), tablet [facility], 162.56, cm, 08/29/20 5:30:00 CDT, Height, 97.273, kg, 08/29/20 5:30:00 CDT, Weight pantoprazol 2021-0 Yes 40 mg = 1 M emoria e 40 mg 4-09 tab, PO, l oral 15:27: Daily, # [place] enteric 00 30 tab, 0 coated Refill(s), tablet [facility], 162.56, cm, 08/29/20 5:30:00 CDT, Height, 97.273, kg, 08/29/20 5:30:00 CDT, Weight pantoprazol 2021-0 Yes 40 mg = 1 M emoria e 40 mg 4-09 tab, PO, l oral 15:27: Daily, # [place] enteric 00 30 tab, 0 coated Refill(s), tablet Pharmacy: [facility] 149, 162.56, cm, 08/29/20 5:30:00 CDT, Height, 97.273, kg, 08/29/20 5:30:00 CDT, Weight pantoprazol 2020-0 No 40 mg = 1 M emoria e 40 mg 4-09 tab, PO, l oral 15:26: Daily, # [place] enteric 00 30 tab, 0 coated Refill(s) tablet sucralfate 2020-0 Yes 1 gm = 1 Mem oria 1 g oral 4-09 tab, PO, l tablet 15:26: Q12H, # 28 Skylar nn 00 tab, 0 Refill(s), Pharmacy: [facility] 149, 162.56, cm, 08/29/20 5:30:00 CDT, Height, 97.273, kg, 08/29/20 5:30:00 CDT, Weight pantoprazol 2020-0 No 40 mg = 1 M emoria e 40 mg 4-09 tab, PO, l oral 15:26: Daily, # [place] enteric 00 30 tab, 0 coated Refill(s) tablet sucralfate 2020-0 Yes 1 gm = 1 Mem oria 1 g oral 4-09 tab, PO, l tablet 15:26: Q12H, # 28 Skylar nn 00 tab, 0 Refill(s), Pharmacy: [place] [id number], 162.56, cm, 08/29/20 5:30:00 CDT, Height, 97.273, kg, 08/29/20 5:30:00 CDT, Weight pantoprazol 2020-0 No 40 mg = 1 M emoria e 40 mg 4-09 tab, PO, l oral 15:26: Daily, # [place] enteric 00 30 tab, 0 coated Refill(s) tablet sucralfate 1-0 Yes 1 gm = 1 Mem oria 1 g oral 4-09 tab, PO, l tablet 15:26: Q12H, # 28 [place]yl[place] nn 00 tab, 0 Refill(s), Pharmacy: [facility] 149, 162.56, cm, 08/29/20 5:30:00 CDT, Height, 97.273, kg, 08/29/20 5:30:00 CDT, Weight pantoprazol 2020-0 No 40 mg = 1 M emoria e 40 mg 4-09 tab, PO, l oral 15:26: Daily, # [place] enteric 00 30 tab, 0 coated Refill(s) tablet sucralfate 2020-0 Yes 1 gm = 1 Mem oria 1 g oral 4-09 tab, PO, l tablet 15:26: Q12H, # 28 [place]yl[place] nn 00 tab, 0 Refill(s), Pharmacy: [facility] 149, 162.56, cm, 08/29/20 5:30:00 [...] [place] nn 00 tab, 0 Refill(s), Pharmacy: [facility] 149, 162.56, cm, 08/29/20 5:30:00 [...] [place] nn 00 tab, 0 Refill(s), Pharmacy: [facility] 149, 162.56, cm, 08/29/20 5:30:00 CDT, Height, 97.273, kg, 08/29/20 5:30:00 CDT, Weight pantoprazol 1-0 No 40 mg = 1 M emoria e 40 mg 4-09 tab, PO, l oral 15:26: Daily, # [place] enteric 00 30 tab, 0 coated Refill(s) tablet sucralfate Yes 1 gm = 1 Mem oria 1 g oral 4-09 tab, PO, l tablet 15:26: Q12H, # 28 [place]yl[place] nn 00 tab, 0 Refill(s), Pharmacy: [facility] 149, 162.56, cm, 08/29/20 5:30:00 CDT, Height, 97.273, kg, 08/29/20 5:30:00 CDT, Weight Saline No Notes: Memoria Flush 0.9% 4-09 (Same as: l 15:25: BD [place] 00 Posiflush) Lorazepam No Notes: Memori a 4-09 (Same as: l 15:25: Ativan) [place] Saline No Notes: Memoria Flush 0.9% 4-09 (Same as: l 15:25: BD [place] 00 Posiflush) Lorazepam No Notes: Memori a 4-09 (Same as: l 15:25: Ativan) [place] Saline No Notes: Memoria Flush 0.9% 4-09 (Same as: l 15:25: BD [place] 00 Posiflush) Saline No Notes: Memoria Flush 0.9% 4-09 (Same as: l 15:25: BD [place] 00 Posiflush) Lorazepam No Notes: Memori a [...] a 4-09 (Same as: l 15:25: Ativan) [place] 00 Saline No Notes: Memoria Flush 0.9% [...] 08/29/20 9:49:00 CDT heparin No Route: IV, Caesra lisa (ANES) 08-29 [...] 08-29 Drug form: l 14:18: INJ, ONCE, [place] 00 Stop date: 08/29/20 9:18:00 CDT heparin 2021-0 No Route: IV, Caesar lisa (ANES) 08-29 Drug form: l 14:18: INJ, ONCE, [place] 00 Stop date: 08/29/20 9:18:00 CDT heparin 2021-0 No Route: IV, Caesar lisa (ANES) 08-29 Drug form: l 14:18: INJ, ONCE, [place] 00 Stop date: 08/29/20 9:18:00 CDT heparin 2020-0 No Route: IV, Caesar lisa (ANES) 08-29 Drug form: l 14:18: INJ, ONCE, [place] 00 Stop date: 08/29/20 9:18:00 CDT heparin 2020-0 No Route: IV, Caesar lisa (ANES) 08-29 Drug form: l 14:18: INJ, ONCE, [place] 00 Stop date: 08/29/20 9:18:00 CDT heparin 2020-0 No Route: IV, Caesar lisa (ANES) 08-29 Drug form: l 14:18: INJ, ONCE, [place] Stop date: 08/29/20 9:18:00 CDT Labetalol 2020-0 No 10 mg, Memori a 08-29 Route: l 14:01: IVP, [place] 00 Q5Min, Dosing Weight 97.273, kg, PRN [...] of times Flumazenil 2020-0 No 0.2 mg, Caesra lisa 08-29 Route: l 14:01: IVP, PRN, [place] 00 Dosing Weight 97.273, kg, PRN Benzodiaze pine Reversal, Initial dose, Start date: 08/29/20 9:01:00 CDT, Duration: 30 day, Stop date: 09/28/20 9:00:00 CDT Naloxone 2021-0 No 0.4 mg, Memori a 08-29 Route: l 14:01: IVP, [place] 00 Q2MIN, Dosing Weight 97.273, kg, PRN Narcotic Reversal, Start date: 08/29/20 9:01:00 CDT, Duration: 8 doses or times, Stop date: Limited # of times Ondansetron 1-0 No 4 mg, Memor ia 08-29 Route: l 14:01: IVP, ONCE, [place] 00 Dosing Weight 97.273, kg, PRN Nausea & Vomiting, Start date: 08/29/20 9:01:00 CDT Labetalol 2021-0 No 10 mg, Memori a 08-29 Route: l 14:01: IVP, [place] 00 Q5Min, Dosing Weight 97.273, kg, PRN Elevated BP, Start date: 08/29/20 9:01:00 CDT, Duration: 5 doses or times, Stop date: Limited # of times Acetaminoph 1-0 No 1,000 mg, M emoria en 08-29 Route: PO, l 14:01: Drug form: [place] 00 TAB, ONCE, Dosing Weight 97.273, kg, [...] lisa 08-29 Route: l 14:01: IVP, PRN, [place] 00 Dosing Weight 97.273, kg, PRN Benzodiaze [...] Memori a 08-29 Route: l 14:01: IVP, [place] 00 Q5Min, Dosing Weight 97.273, kg, PRN Elevated BP, Start date: 08/29/20 9:01:00 CDT, Duration: 5 doses or times, Stop date: Limited # of times Acetaminoph 1-0 No 1,000 mg, M emoria en 08-29 Route: PO, l 14:01: Drug form: [place] 00 TAB, ONCE, Dosing Weight 97.273, kg, [...] oria ne 08-29 Route: l 14:01: IVP, [place] 00 Q5Min, Dosing Weight 97.273, kg, PRN [...] ia 08-29 Route: l 14:01: IVP, ONCE, [place] 00 Dosing Weight 97.273, kg, PRN Nausea [...] 08-29 Route: PO, l 14:01: Drug form: [place] 00 TAB, ONCE, Dosing Weight 97.273, kg, [...] oria ne 08-29 Route: l 14:01: IVP, [place] 00 Q5Min, Dosing Weight 97.273, kg, PRN Pain Score 7-10, Start date: 08/29/20 9:01:00 CDT, Duration: 4 doses or times, Stop date: Limited # of times Labetalol 2021-0 No 10 mg, Memori a 08-29 Route: l 14:01: IVP, [place] 00 Q5Min, Dosing Weight 97.273, kg, PRN Elevated BP, Start date: 08/29/20 9:01:00 CDT, Duration: 5 doses or times, Stop date: Limited # of times Acetaminoph 1-0 No 1,000 mg, M emoria en 08-29 Route: PO, l 14:01: Drug form: [place] 00 TAB, ONCE, Dosing Weight 97.273, kg, [...] Memori a 08-29 Route: l 14:01: IVP, [place] 00 Q2MIN, Dosing Weight 97.273, kg, PRN Narcotic Reversal, Start date: 08/29/20 9:01:00 CDT, Duration: 8 doses or times, Stop date: Limited # of times Flumazenil 2021-0 No 0.2 mg, Caesar lisa 08-29 Route: l 14:01: IVP, PRN, [place] 00 Dosing Weight 97.273, kg, PRN Benzodiaze pine Reversal, Initial dose, Start date: 08/29/20 9:01:00 CDT, Duration: 30 day, Stop date: 09/28/20 9:00:00 CDT Ondansetron 2021-0 No 4 mg, Memor ia 08-29 Route: l 14:01: IVP, ONCE, [place] 00 Dosing Weight 97.273, kg, PRN Nausea & Vomiting, Start date: 08/29/20 9:01:00 CDT Naloxone 2021-0 No 0.4 mg, Memori a 08-29 Route: l 14:01: IVP, [place] 00 Q2MIN, Dosing Weight 97.273, kg, PRN Narcotic Reversal, Start date: 08/29/20 9:01:00 CDT, Duration: 8 doses or times, Stop date: Limited # of times Ondansetron 2021-0 No 4 mg, Memor ia 08-29 Route: l 14:01: IVP, ONCE, [place] 00 Dosing Weight 97.273, kg, PRN Nausea [...] 08-29 Route: PO, l 14:01: Drug form: [place] 00 TAB, ONCE, Dosing Weight 97.273, kg, [...] lisa 08-29 Route: l 14:01: IVP, PRN, [place] 00 Dosing Weight 97.273, kg, PRN Benzodiaze pine Reversal, Initial dose, Start date: 08/29/20 9:01:00 CDT, Duration: 30 day, Stop date: 09/28/20 9:00:00 CDT Naloxone 1-0 No 0.4 mg, Memori a 08-29 Route: l 14:01: IVP, [place] 00 Q2MIN, Dosing Weight 97.273, kg, PRN [...] Memori a 08-29 Route: l 14:01: IVP, [place] 00 Q5Min, Dosing Weight 97.273, kg, PRN [...] lisa 08-29 Route: l 14:01: IVP, PRN, [place] 00 Dosing Weight 97.273, kg, PRN Benzodiaze pine Reversal, Initial dose, Start date: 08/29/20 9:01:00 CDT, Duration: 30 day, Stop date: 09/28/20 9:00:00 CDT Naloxone 1-0 No 0.4 mg, Memori a 08-29 Route: l 14:01: IVP, [place] 00 Q2MIN, Dosing Weight 97.273, kg, PRN [...] Drug form: l 10 13:15: INJ, Start [place] microgram date: 08/29/20 8:15:00 CDT, Stop date: 08/29/20 9:15:00 CDT norepinephr 2020-0 No Route: IV, Memoria ine (ANES) 08-29 Drug form: l 10 13:15: INJ, Start [place] microgram 00 date: 08/29/20 8:15:00 CDT, Stop date: 08/29/20 9:15:00 CDT norepinephr 202-0 No Route: IV, Memoria ine (ANES) 08-29 Drug form: l 10 13:15: INJ, Start [place] microgram 00 date: 08/29/20 8:15:00 CDT, Stop date: 08/29/20 9:15:00 CDT norepinephr 2020-0 No Route: IV, Memoria ine (ANES) 08-29 Drug form: l 10 13:15: INJ, Start [place] microgram 00 date: 08/29/20 8:15:00 CDT, Stop date: 08/29/20 9:15:00 CDT norepinephr 2020-0 No Route: IV, Memoria ine (ANES) 08-29 Drug form: l 10 13:15: INJ, Start [place] microgram 00 date: 08/29/20 8:15:00 CDT, Stop date: 08/29/20 9:15:00 CDT norepinephr 2020-0 No Route: IV, Memoria ine (ANES) 08-29 Drug form: l 10 13:15: INJ, Start [place] microgram 00 date: 08/29/20 8:15:00 CDT, Stop date: 08/29/20 9:15:00 CDT Sodium 2020-0 No Route: IV, Memor ia Chloride -09 Total l 0.9% IV 12:30: Volume: [place] (ANES) 1000 00 1,000, mL Start date: 08/29/20 7:30:00 CDT, Stop date: 08/29/20 8:30:00 CDT Sodium 2021-0 No Route: IV, Memor ia Chloride 4-09 Total l 0.9% IV 12:30: Volume: [place] (ANES) 1000 00 1,000, mL Start date: [...] 4-09 Total l 0.9% IV 12:30: Volume: [place] (ANES) 1000 00 1,000, mL Start date: [...] PO, l Hydrochlori 11:42: Q24H, # 30 [place] de 150 MG 00 tab, 0 Extended Refill(s) Release Tablet 24 HR Yes 150 mg = 1 Memori a Bupropion 4-09 tab, PO, l Hydrochlori 11:42: Q24H, # 30 [place] de 150 MG 00 tab, 0 Extended Refill(s) Release Tablet 24 HR Yes 150 mg = 1 Memori a Bupropion 4-09 tab, PO, l Hydrochlori 11:42: Q24H, # 30 [place] de 150 MG 00 tab, 0 Extended Refill(s) Release Tablet 24 HR 2020-0 Yes 150 mg = 1 Memori a Bupropion - tab, PO, l Hydrochlori 11:42: Q24H, # 30 [place] de 150 MG 00 tab, 0 Extended Refill(s) Release Tablet apixaban 2020-0 Yes 5 mg, PO, Me moria MG Oral 4 Q12H, tab, l Tablet 11:41: 0 [place] [Eliquis] 00 Refill(s), For Atrial Fibrilatio n [...] 4- Q12H, tab, l Tablet 11:41: 0 [place] [Eliquis] 00 Refill(s), For Atrial Fibrilatio n apixaban 5 2020-0 Yes 5 mg, PO, Me moria MG Oral - Q12H, tab, l Tablet 11:41: 0 [place] [Eliquis] 00 Refill(s), For Atrial Fibrilatio n apixaban 5 2020-0 Yes 5 mg, PO, Me moria MG Oral 4- Q12H, tab, l Tablet 11:41: 0 [place] [Eliquis] 00 Refill(s), For Atrial Fibrilatio n [...] tab, PO, l tablet 11:38: Daily, # [place] 00 90 tab, 3 Refill(s) AMIODarone 2020-0 Yes 200 mg = 1 M emoria 200 mg oral 4-09 tab, PO, l tablet 11:38: Daily, # [place] 00 90 tab, 3 Refill(s) AMIODarone 2020-0 Yes 200 mg = 1 M emoria 200 mg oral 4-09 tab, PO, l tablet 11:38: Daily, # [place] 00 90 tab, 3 Refill(s) AMIODarone 2020-0 Yes 200 mg = 1 M emoria 200 mg oral 4-09 tab, PO, l tablet 11:38: Daily, # [place] 00 90 tab, 3 Refill(s) AMIODarone 2020-0 Yes 200 mg = 1 M emoria 200 mg oral 4-09 tab, PO, l tablet 11:38: Daily, # [place] 00 90 tab, 3 Refill(s) normal 0 [...] tablet, 24 hr extended tablet release busPIRone 2021-0 Yes buspirone [place] (Buspar) 30 2-22 30 [...] Immunizations Ordered Filled Immunization Date Status Comments [facility] e Immunization Name Name SARS-COV-2 COVID-19 [...] COVID-19 2020-07-23 Completed [facility] MRNA VACCINATION 00:00:00 [facility] PFIZER COVID-19 2020-07-23 Completed [facility] MRNA VACCINATION 00:00:00 [facility] PFIZER COVID-19 2020-07-23 Completed [facility] MRNA VACCINATION 00:00:00 [facility] PFIZER COVID-19 2020-07-23 Completed [facility] MRNA VACCINATION 00:00:00 [facility] PFIZER COVID-19 2020-07-23 Completed [facility] MRNA VACCINATION 00:00:00 [facility] PFIZER COVID-19 2020-07-23 Completed [facility] MRNA VACCINATION 00:00:00 [facility] PFIZER COVID-19 2020-07-23 Completed [facility] MRNA VACCINATION 00:00:00 [facility] PFIZER COVID-19 2020-07-23 Completed [facility] MRNA VACCINATION 00:00:00 [facility] PFIZER COVID-19 2020-07-23 Completed [facility] MRNA VACCINATION 00:00:00 [facility] PFIZER COVID-19 2020-07-23 Completed [facility] MRNA VACCINATION 00:00:00 [facility] PFIZER COVID-19 2020-07-23 Completed [facility] MRNA VACCINATION 00:00:00 [facility] PFIZER COVID-19 2020-07-23 Completed [facility] MRNA VACCINATION 00:00:00 [facility] PFIZER COVID-19 2020-07-23 Completed [facility] MRNA VACCINATION 00:00:00 [facility] PFIZER COVID-19 2020-07-23 Completed [facility] MRNA VACCINATION 00:00:00 [facility] PFIZER COVID-19 2020-07-23 Completed [facility] MRNA VACCINATION 00:00:00 [facility] PFIZER COVID-19 2020-07-23 Completed [facility] MRNA VACCINATION 00:00:00 [facility] PFIZER COVID-19 2020-07-23 Completed [facility] MRNA VACCINATION 00:00:00 [facility] PFIZER COVID-19 2020-07-23 Completed [facility] MRNA VACCINATION 00:00:00 [facility] PFIZER COVID-19 2020-07-23 Completed [facility] M[facility] VACCINATION 00:00:00 [facility] PFIZER COVID-19 2020-07-23 Completed [facility] MRNA VACCINATION 00:00:00 [facility] PFIZER COVID-19 2020-07-23 Completed [facility] MRNA VACCINATION 00:00:00 [facility] PFIZER COVID-19 2020-07-23 Completed [facility] MRNA VACCINATION 00:00:00 Hospital PFIZER COVID-19 2020-07-23 Completed [facility] MRNA VACCINATION 00:00:00 [facility] PFIZER COVID-19 2020-07-23 Completed [facility] MRNA VACCINATION 00:00:00 [facility] PFIZER COVID-19 2020-07-23 Completed [facility] MRNA VACCINATION 00:00:00 [facility] SARS-COV-2 COVID-19 2020-07-23 Completed Unive rsity of PFIZER VACCINE 00:00:00 [facility] SARS-COV-2 COVID-19 2020-07-23 Completed Unive rsity of PFIZER VACCINE 00:00:00 [facility] SARS-COV-2 COVID-19 2020-07-23 Completed Unive rsity of PFIZER VACCINE 00:00:00 [facility] SARS-COV-2 COVID-19 2020-07-23 Completed Unive rsity of PFIZER VACCINE 00:00:00 [facility] SARS-COV-2 COVID-19 2020-07-23 Completed Unive rsity of PFIZER VACCINE 00:00:00 [facility] SARS-COV-2 COVID-19 2020-07-23 Completed Unive rsity of PFIZER VACCINE 00:00:00 [facility] SARS-COV-2 COVID-19 2020-07-23 Completed Unive rsity of PFIZER VACCINE 00:00:00 [facility] PFIZER COVID-19 2020-07-23 Completed [facility] MRNA VACCINATION 00:00:00 [facility] PFIZER COVID-19 2020-07-02 Completed [facility] MRNA VACCINATION 00:00:00 Hospital PFIZER COVID-19 2020-07-02 Completed [facility] MRNA VACCINATION 00:00:00 [facility] PFIZER COVID-19 2020-07-02 Completed [facility] MRNA VACCINATION 00:00:00 [facility] PFIZER COVID-19 2020-07-02 Completed [facility] MRNA VACCINATION 00:00:00 Hospital PFIZER COVID-19 2020-07-02 Completed [facility] MRNA VACCINATION 00:00:00 Hospital PFIZER COVID-19 2020-07-02 Completed [facility] MRNA VACCINATION 00:00:00 Hospital PFIZER COVID-19 2020-07-02 Completed [facility] MRNA VACCINATION 00:00:00 [facility] PFIZER COVID-19 2020-07-02 Completed [facility] MRNA VACCINATION 00:00:00 [facility] PFIZER COVID-19 2020-07-02 Completed [facility] MRNA VACCINATION 00:00:00 [facility] PFIZER COVID-19 2020-07-02 Completed [facility] MRNA VACCINATION 00:00:00 [facility] PFIZER COVID-19 2020-07-02 Completed [facility] MRNA VACCINATION 00:00:00 [facility] PFIZER COVID-19 2020-07-02 Completed [facility] MRNA VACCINATION 00:00:00 [facility] PFIZER COVID-19 2020-07-02 Completed [facility] MRNA VACCINATION 00:00:00 [facility] PFIZER COVID-19 2020-07-02 Completed [facility] MRNA VACCINATION 00:00:00 [facility] PFIZER COVID-19 2020-07-02 Completed [facility] MRNA VACCINATION 00:00:00 [facility] PFIZER COVID-19 2020-07-02 Completed [facility] MRNA VACCINATION 00:00:00 [facility] PFIZER COVID-19 2020-07-02 Completed [facility] MRNA VACCINATION 00:00:00 [facility] PFIZER COVID-19 2020-07-02 Completed [facility] MRNA VACCINATION 00:00:00 [facility] PFIZER COVID-19 2020-07-02 Completed [facility] MRNA VACCINATION 00:00:00 [facility] PFIZER COVID-19 2020-07-02 Completed [facility] MRNA VACCINATION 00:00:00 [facility] PFIZER COVID-19 2020-07-02 Completed [facility] MRNA VACCINATION 00:00:00 [facility] PFIZER COVID-19 2020-07-02 Completed [facility] MRNA VACCINATION 00:00:00 [facility] PFIZER COVID-19 2020-07-02 Completed [facility] MRNA VACCINATION 00:00:00 [facility] PFIZER COVID-19 2020-07-02 Completed [facility] MRNA VACCINATION 00:00:00 [facility] PFIZER COVID-19 2020-07-02 Completed [facility] MRNA VACCINATION 00:00:00 [facility] SARS-COV-2 COVID-19 2020-07-02 Completed Unive rsity of PFIZER VACCINE 00:00:00 [facility] SARS-COV-2 COVID-19 2020-07-02 Completed Unive rsity of PFIZER VACCINE 00:00:00 [facility] SARS-COV-2 COVID-19 2020-07-02 Completed Unive rsity of PFIZER VACCINE 00:00:00 [facility] SARS-COV-2 COVID-19 2020-07-02 Completed Unive rsity of PFIZER VACCINE 00:00:00 [facility] SARS-COV-2 COVID-19 2020-07-02 Completed Unive rsity of PFIZER VACCINE 00:00:00 [facility] SARS-COV-2 COVID-19 2020-07-02 Completed Unive rsity of PFIZER VACCINE 00:00:00 [facility] SARS-COV-2 COVID-19 2020-07-02 Completed Unive rsity of PFIZER VACCINE 00:00:00 [facility] PFIZER COVID-19 2020-07-02 Completed [facility] MRNA VACCINATION 00:00:00 [facility] Influenza [...] [facility] (Prevnar 13) [place] Influenza Virus 2014-01-30 Completed Universit y of [...] y of Vaccine (3+ yrs) 00:00:00 [place] [facility] Pneumococcal 13 2014-01-30 Completed Universit y of Conjugate, PCV13 00:00:00 [place] [facility] (Prevnar 13) Branch Influenza Virus 2014-01-30 Completed Universit y of Vaccine (3+ yrs) 00:00:00 [place] [facility] Pneumococcal 13 2014-01-30 Completed Universit y of Conjugate, PCV13 00:00:00 [place] [facility] (Prevnar 13) Branch Influenza Virus 2014-01-30 Completed Universit y of Vaccine (3+ yrs) 00:00:00 [place] [facility] Pneumococcal 13 2014-01-30 Completed Universit y of Conjugate, PCV13 00:00:00 [place] [facility] (Prevnar 13) Branch Influenza Virus 2014-01-30 Completed Universit y of Vaccine (3+ yrs) 00:00:00 [place] [facility] Pneumococcal 13 2014-01-30 Completed Universit y of Conjugate, PCV13 00:00:00 [place] [facility] (Prevnar 13) Branch Influenza Virus 2014-01-30 Completed Universit y of Vaccine (3+ yrs) 00:00:00 [place] [facility] Pneumococcal 13 2014-01-30 Completed Universit y of Conjugate, PCV13 00:00:00 [place] [facility] (Prevnar 13) Branch Influenza Virus 2014-01-30 Completed Universit y of Vaccine (3+ yrs) 00:00:00 [place] [facility] Pneumococcal 13 2014-01-30 Completed Universit y of Conjugate, PCV13 00:00:00 [facility] dical (Prevnar 13) Branch Influenza [...] 2011-09-01 Completed Unive rsity of Dosage 00:00:00 [facility] Hep B, Adol or Pedi 2011-09-01 Completed Unive rsity of Dosage 00:00:00 [facility] Hep B, Adol or Pedi 2011-03-17 Completed Unive rsity of Dosage 00:00:00 [facility] Hep B, Adol or Pedi 2011-03-17 Completed Unive rsity of Dosage 00:00:00 [facility] Hep B, Adol or Pedi 2011-03-17 Completed Unive rsity of Dosage 00:00:00 [facility] Hep B, Adol or Pedi 2011-03-17 Completed Unive rsity of Dosage 00:00:00 [facility] Hep B, Adol or Pedi 2011-03-17 Completed Unive rsity of Dosage 00:00:00 [facility] Hep B, Adol or Pedi 2011-03-17 Completed Unive rsity of Dosage 00:00:00 [facility] Hep B, Adol or Pedi 2011-03-17 Completed Unive rsity of Dosage 00:00:00 [facility] Hep B, Adol or Pedi 2011-03-17 Completed Unive rsity of Dosage 00:00:00 [facility] Hep B, Adol or Pedi 2011-03-17 Completed Unive rsity of Dosage 00:00:00 [facility] Hep B, Adol or Pedi 2011-03-17 Completed Unive rsity of Dosage 00:00:00 [facility] Hep B, Adol or Pedi 2011-03-17 Completed Unive rsity of Dosage 00:00:00 [facility] Influenza Virus 2011-02-10 Completed Universit y of Vaccine 00:00:00 [facility] Hep B, Adol or Pedi 2011-02-10 Completed Unive rsity of Dosage 00:00:00 [facility] Influenza Virus 2011-02-10 Completed Universit y of Vaccine 00:00:00 [facility] Hep B, Adol or Pedi 2011-02-10 Completed Unive rsity of Dosage 00:00:00 [facility] Influenza Virus 2011-02-10 Completed Universit y of Vaccine 00:00:00 [facility] Hep B, Adol or Pedi [...] of Vaccine 00:00:00 [facility] Hep B, Adol or Pedi 2011-02-10 Completed Unive rsity of Dosage 00:00:00 [facility] Influenza Virus 2011-02-10 Completed Universit y of Vaccine 00:00:00 [facility] Hep B, Adol or Pedi 2011-02-10 Completed Unive rsity of Dosage 00:00:00 [facility] Influenza Virus 2011-02-10 Completed Universit y of Vaccine 00:00:00 [facility] Hep B, Adol or Pedi 2011-02-10 Completed Unive rsity of Dosage 00:00:00 [facility] Influenza Virus 2011-02-10 Completed Universit y of Vaccine 00:00:00 [facility] Hep B, Adol or Pedi [...] University of 00:00:00 [facility] TDAP (ADACEL) 2010-11-18 Completed University [...] 2001-10-04 Completed University o f Polysaccharide, 00:00:00 [place] [facility] PPSV23 (PNEUMOVAX) Branch PPD (TB) 2001-10-04 Completed University of 00:00:00 [facility] Pneumococcal 2001-10-04 Completed University o f Polysaccharide, 00:00:00 [place] [...] 2001-10-04 Completed University o f Polysaccharide, 00:00:00 [place] [facility] PPSV23 (PNEUMOVAX) Branch PPD (TB) 2001-10-04 Completed University of 00:00:00 [facility] Pneumococcal 2001-10-04 Completed University o f Polysaccharide, 00:00:00 [place] [facility] PPSV23 (PNEUMOVAX) Branch PPD (TB) 2001-10-04 Completed University of 00:00:00 [facility] Pneumococcal 2001-10-04 Completed University o f Polysaccharide, 00:00:00 [place] [facility] PPSV23 (PNEUMOVAX) Branch PPD (TB) 2001-10-04 Completed University of 00:00:00 [facility] Pneumococcal 2001-10-04 Completed University o f Polysaccharide, 00:00:00 [place] [facility] PPSV23 (PNEUMOVAX) Branch PPD (TB) 2001-10-04 Completed University of 00:00:00 [facility] Pneumococcal 2001-10-04 Completed University o f Polysaccharide, 00:00:00 [place] [facility] PPSV23 (PNEUMOVAX) Branch PPD (TB) 2001-10-04 Completed University of 00:00:00 [facility] Pneumococcal 2001-10-04 Completed University o f Polysaccharide, 00:00:00 [place] [facility] PPSV23 (PNEUMOVAX) Branch PPD (TB) 2001-10-04 Completed University of 00:00:00 [facility] Vital Signs Vital Name Observation Time Observation Value Comments Source Systolic blood 2022-04-22 19:50:00 156 mm[Hg] Univer sity of pressure [facility] Diastolic blood 2022-04-22 19:50:00 89 mm[Hg] Unive rsity of pressure [facility] Heart rate 2022-04-22 19:50:00 69 /min [facility] Body temperature 2022-04-22 19:50:00 36.67 Amina Univ ers[facility] of [facility] Respiratory rate 2022-04-22 19:50:00 17 /min Univ ers[facility] of [facility] Body height 2022-04-22 19:50:00 162.6 cm [facility] Body weight 2022-04-22 19:50:00 80.74 kg [facility] BMI 2022-04-22 19:50:00 30.55 kg/m2 [facility] Oxygen saturation in 2022-04-22 19:50:00 96 /min University of Arterial blood by [facility] Pulse oximetry Branch Systolic blood 2022-03-05 15:23:00 167 mm[Hg] Univer sity of pressure [facility] Diastolic blood 2022-03-05 15:23:00 105 mm[Hg] Unive rsity of pressure [facility] Heart rate 2022-03-05 15:23:00 49 /min [facility] Body temperature 2022-03-05 15:18:00 36.67 Amina [facility] Respiratory rate 2022-03-05 15:18:00 18 /min Univ ersity of [facility] Body height 2022-03-05 15:18:00 162.6 cm [facility] Body weight 2022-03-05 15:18:00 74.707 kg [facility] BMI 2022-03-05 15:18:00 28.27 kg/m2 [facility] Systolic blood 2022-02-16 21:41:00 169 mm[Hg] Univer sity of pressure [facility] Diastolic blood 2022-02-16 21:41:00 86 mm[Hg] Unive rsity of pressure [facility] Heart rate 2022-02-16 21:41:00 51 /min [facility] Body temperature 2022-02-16 21:41:00 36.56 Amina [facility] Respiratory rate 2022-02-16 21:41:00 17 /min Univ ers[facility] Oxygen saturation in 2022-02-16 21:41:00 98 /min University Arterial blood by [facility] Pulse oximetry Branch Body height 2022-02-11 16:02:00 162.6 cm Universi ty of [facility] Body weight 2022-02-11 16:02:00 79.379 kg Universi ty of [facility] BMI 2022-02-11 16:02:00 30.04 kg/m2 Universi ty of [facility] Systolic blood 2021-11-20 13:47:00 165 mm[Hg] Univer sity of pressure [facility] Diastolic blood 2021-11-20 13:47:00 83 mm[Hg] Unive rsity of [facility] Heart rate 2021-11-20 13:47:00 58 /min Universi ty [facility] Body temperature 2021-11-20 13:42:00 36.39 [facility]a [facility] 2021-11-20 13:42:00 16 /min [facility] Body height 2021-11-20 13:42:00 162.6 cm [facility] [place] [facility] [place] Body weight 2021-11-20 13:42:00 84.369 kg Universi ty [facility] BMI 2021-11-20 13:42:00 31.93 kg/m2 Universi ty [facility] Systolic blood 2021-07-14 15:18:00 142 mm[Hg] [facility] [...] 2022-03-05 15:23:00 167 mm[Hg] Univer sity of [facility] Diastolic blood 2022-03-05 15:23:00 105 mm[Hg] Unive rsity of [facility] Heart rate 2022-03-05 15:23:00 49 /min [facility] Body temperature 2022-03-05 15:18:00 36.67 Amina [facility] Respiratory rate 2022-03-05 15:18:00 18 /min [facility] Body height 2022-03-05 15:18:00 162.6 cm [facility] Body weight 2022-03-05 15:18:00 74.707 kg [facility] BMI 2022-03-05 15:18:00 28.27 kg/m2 [facility] Oxygen saturation in 2022-02-16 21:41:00 98 /min [facility] Arterial blood by [facility] Pulse oximetry Branch Systolic blood 2020-12-08 15:48:00 125 mm[Hg] [facility] pressure Diastolic blood 2020-12-08 15:48:00 76 mm[Hg] [facility] pressure Heart rate 2020-12-08 15:48:00 64 /min [facility] Body temperature 2020-12-08 15:48:00 36.61 Amina [facility] Respiratory rate 2020-12-08 15:48:00 17 /min [facility] Body height 2020-12-08 15:48:00 162.6 cm [facility] Body weight 2020-12-08 15:48:00 98.884 kg [facility] BMI 2020-12-08 15:48:00 37.42 kg/m2 [facility] Oxygen saturation in 2020-12-08 15:48:00 97 /min [facility] Arterial blood by Pulse oximetry Respitory Rate 2020-08-30 13:00:00 Memori al [place] Systolic (mm Hg) 2020-08-30 13:00:00 Caesar rial [place] Diastolic (mm Hg) 2020-08-30 13:00:00 Mem orial [place] Systolic (mm Hg) 2020-08-30 11:00:00 Caesar rial [place] Diastolic (mm Hg) 2020-08-30 11:00:00 Mem orial [place] Temperature Oral (F) 2020-08-30 11:00:00 98.4 F [facility] Respitory Rate 2020-08-30 11:00:00 Memori al [place] Respitory Rate 2020-08-30 10:00:00 [place] Systolic (mm Hg) 2020-08-30 10:00:00 Caesar riamabel [place] Diastolic (mm Hg) 2020-08-30 10:00:00 Mem raymondal [place] Temperature Oral (F) 2020-08-30 00:00:00 96.9 F [facility] Temperature Oral (F) 2020-08-29 11:26:00 97.6 F [facility] Height 2020-08-29 10:30:00 162.56 cm [facility] Weight 2020-08-29 10:30:00 [facility] BMI Calculated 2020-08-29 10:30:00 [place] Procedures Procedure Date / Time Performing Clinician Source Performed BASIC METABOLIC PANEL (NA, 2022-04-22 21:23:00 Paulette Gray [facility] K, CL, CO2, GLUCOSE, BUN, Medica l Branch CREATININE, CA) CBC WITH DIFF 2022-04-22 21:23:00 Paulette Gray [facility] CONSENT/REFUSAL FOR 2022-04-22 19:45:46 Doctor Unassigned, [facility] DIAGNOSIS AND TREATMENT [employer] [facility] SARS-COV-2 COVID-19 2022-03-05 16:09:27 [facility] DIMITRIS-SUCROSE VACCINE [address] [place] [address] YRS+, BIVALENT 0.3ML, IM, (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) FLU 2022-03-05 16:09:27 [facility] VACC(),65+YR,0.5 Medica l Branch ML,IM,ADJUVANTED,QUAD(FLUA D) FLU 2022-03-05 16:09:27 [facility] VACC(),65+YR,0.5 Medica l Branch ML,IM,ADJUVANTED,QUAD(FLUA D) SARS-COV-2 COVID-19 2022-03-05 16:09:27 [facility] DIMITRIS-SUCROSE VACCINE [address] [place] [address] YRS+, BIVALENT 0.3ML, IM, (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) MAGNESIUM 2022-02-15 09:41:00 Sofia Garcia [facility] BASIC METABOLIC PANEL (NA, 2022-02-15 09:41:00 Sofia Garcia [facility] K, CL, CO2, GLUCOSE, BUN, Medica l Branch CREATININE, CA) CBC WITH DIFF 2022-02-15 09:41:00 Sofia Garcia [facility] N-TERMINAL PRO-BNP 2022-02-15 09:41:00 Sofia Garcia [facility] CBC WITH DIFF 2022-02-15 09:41:00 Radha [facility] BASIC METABOLIC PANEL (NA, 2022-02-15 09:41:00 Radha Sofia [facility] K, CL, CO2, GLUCOSE, BUN, Medica l Branch CREATININE, CA) MAGNESIUM 2022-02-15 09:41:00 [facility]-BNP 2022-02-15 09:41:00 Sofia Garcia [facility] BASIC METABOLIC PANEL (NA, 2022-02-13 09:40:00 Sofia Garcia [facility] K, CL, CO2, GLUCOSE, BUN, Medica l Branch CREATININE, CA) CBC WITH DIFF 2022-02-13 09:40:00 Radha [facility] BASIC METABOLIC PANEL (NA, 2022-02-13 09:40:00 Sofia Garcia [facility] K, CL, CO2, GLUCOSE, BUN, Medica l Branch CREATININE, CA) CBC WITH DIFF 2022-02-13 09:40:00 Sofia Garcia [facility] TROPONIN I 2022-02-11 23:41:00 [facility]MINAL [facility]-BNP 2022-02-11 23:41:00 Radha Sofia [facility] TROPONIN I 2022-02-11 23:41:00 Sofia Garcia [facility] N-TERMINAL PRO-BNP 2022-02-11 23:41:00 Sofia Garcia [facility] HB ECG ROUTINE & RHYTHM 2022-02-11 22:15:36 Sofia Garcia [facility] TRANSTHORACIC ECHO (TTE) 2022-02-11 21:26:50 [facility] 2022-02-11 21:26:50 [facility] 2022-02-11 07:45:43 Reilly Means [facility] CONTRAST [facility] CT ABDOMEN PELVIS W 2022-02-11 07:45:43 Reilly Means [facility] CONTRAST [facility] RAPID INFLUENZA A/B 2022-02-11 06:54:00 Reilly Means [facility] RAPID INFLUENZA A/B 2022-02-11 06:54:00 Reilly Means [facility] URINALYSIS 2022-02-11 06:45:00 Reilly Means [facility] URINE CULTURE 2022-02-11 06:45:00 Reilly Means [facility] URINALYSIS 2022-02-11 06:45:00 Reilly Means [facility] URINE CULTURE 2022-02-11 06:45:00 Reilly Means [facility] HB ECG ROUTINE & RHYTHM 2022-02-11 05:22:08 Reilly Means [facility] HB ECG ROUTINE & RHYTHM 2022-02-11 05:22:08 Reilly Means [facility] BLOOD CULTURE SCREEN 2022-02-11 04:58:00 Reilly Means [facility] TROPONIN I 2022-02-11 04:58:00 Reilly Means [facility] COMP. METABOLIC PANEL 2022-02-11 04:58:00 Reilly Means [facility] ([id number]) [facility] CBC WITH DIFF 2022-02-11 04:58:00 Reilly Means [facility] PROTHROMBIN TIME / INR 2022-02-11 04:58:00 Reilly Means [facility] ACTIVATED PARTIAL THRMPLAS 2022-02-11 04:58:00 Reilly Menas [facility] N-TERMINAL PRO-BNP 2022-02-11 04:58:00 Reilly Means [facility] LACTIC ACID WHOLE BLOOD 2022-02-11 04:58:00 Reilly Means [facility] COVID-19 (ID NOW RAPID 2022-02-11 04:58:00 Reilly Means [facility] TESTING) Medical Branch LAB ONLY COVID 2022-02-11 04:58:[address] [facility] CBC WITH DIFF 2022-02-11 04:58:00 Reilly Means [facility] ACTIVATED PARTIAL THRMPLAS 2022-02-11 04:58:00 Reilly Means [facility] PROTHROMBIN TIME / INR 2022-02-11 04:58:00 Reilly Means [facility] COVID-19 (ID NOW RAPID 2022-02-11 04:58:00 Reilly Means [facility] TESTING) Medical Branch COMP. METABOLIC PANEL 2022-02-11 04:58:00 Reilly Means [facility] ([id number]) Medical Branch TROPONIN I 2022-02-11 04:58:00 Reilly Means [facility] N-TERMINAL PRO-BNP 2022-02-11 04:58:00 Reilly Means [facility] BLOOD CULTURE SCREEN 2022-02-11 04:58:00 Reilly Means [facility] LACTIC ACID WHOLE BLOOD 2022-02-11 04:58:00 Reilly Means [facility] LAB ONLY COVID 2022-02-11 04:58:[address] [facility] XR CHEST 1 VW 2022-02-11 04:27:42 Reilly Means [facility] XR CHEST 1 VW 2022-02-11 04:27:42 Reilly Means [facility] HOSPITAL ADMISSION 2022-02-10 05:01:00 Doctor Unassigned, [facility] Name [facility] HOSPITAL ADMISSION 2022-02-10 05:01:00 Doctor Unassigned, [facility] Name [facility] ECG 12-LEAD 2021-07-14 15:14:00 Elan Lira [facility] [id number] 2021-06-17 00:00:00 RIKY [facility] GASTROINTESTINAL PANEL 2020-12-08 22:21:00 Jailyn Eliseo [facility] XR ABDOMEN 1 VW 2020-12-08 18:06:32 Eliseo Arce spital OR [place] < 1 HOUR 2020-09-05 22:39:00 Eliseo Arce spital SURGICAL PATHOLOGY REQUEST 2020-09-05 21:54:[address] [facility] XR CHEST 1 VW PORTABLE 2020-09-05 19:55:00 Eliseo Arce [facility] DISCHARGE PATIENT 2020-09-05 17:27:55 Lucas Harris [facility] IN AN ELECTIVE 2020-09-05 16:47:23 [facility], INTRAOPERATIVE 2020-09-05 16:27:00 [facility] 2020-09-05 15:04:00 [facility] TIME (PTT) M. PROTHROMBIN TIME WITH INR 2020-09-05 15:04:00 Mindy Maharaj [facility] M. Plan of Care Planned Activity Planned Date Details Comments Source Future Scheduled 2022-04-30 SHINGLES VACCINES (1 Met [facility] Test 01:07:32 of 2) [code = SHINGLES VACCINES (1 of 2)] Future Scheduled 2022-04-30 BREAST CANCER [facility] Test 01:07:32 SCREENING [code = BREAST CANCER SCREENING] Future Scheduled 2022-04-30 COLONOSCOPY SCREENING [facility] Test 01:07:32 [code = COLONOSCOPY SCREENING] Future Scheduled 2022-04-30 HEPATITIS B VACCINES Met [facility] Test 01:07:32 (1 of 3 - Risk 3-dose series) [code = HEPATITIS B VACCINES (1 of 3 - Risk 3-dose series)] Future Scheduled 2022-04-30 COVID-19 VACCINE (3 - [facility] Test 01:07:32 Booster for Pfizer series) [code = COVID-19 VACCINE (3 - Booster for Pfizer series)] Future Scheduled 2022-04-30 65+ PNEUMOCOCCAL [facility] Test 01:07:32 VACCINE (4 - PPSV23 if available, else PCV20) [code = 65+ PNEUMOCOCCAL VACCINE (4 - PPSV23 if available, else PCV20)] Future Scheduled 2022-04-30 INFLUENZA VACCINE Method [facility] Test 01:07:32 [code = INFLUENZA VACCINE] Future Scheduled 2022-04-30 SHINGLES VACCINES (1 Met [facility] Test 01:07:32 of 2) [code = SHINGLES VACCINES (1 of 2)] Future Scheduled 2022-04-30 BREAST CANCER [facility] Test 01:07:32 SCREENING [code = BREAST CANCER SCREENING] Future Scheduled 2022-04-30 COLONOSCOPY SCREENING [facility] Test 01:07:32 [code = COLONOSCOPY SCREENING] Future Scheduled 2022-04-30 HEPATITIS B VACCINES Met [facility] Test 01:07:32 (1 of 3 - Risk 3-dose series) [code = HEPATITIS B VACCINES (1 of 3 - Risk 3-dose series)] Future Scheduled 2022-04-30 COVID-19 VACCINE (3 - [facility] Test 01:07:32 Booster for Pfizer series) [code = COVID-19 VACCINE (3 - Booster for Pfizer series)] Future Scheduled 2022-04-30 65+ [facility] 01:07:32 VACCINE (4 - PPSV23 if available, else PCV20) [code = 65+ PNEUMOCOCCAL VACCINE (4 - PPSV23 if available, else PCV20)] Future Scheduled 2022-04-30 INFLUENZA VACCINE Method [facility] Test 01:07:32 [code = INFLUENZA VACCINE] Future Scheduled 2022-04-30 SHINGLES VACCINES (1 Met [facility] Test 01:07:32 of 2) [code = SHINGLES VACCINES (1 of 2)] Future Scheduled 2022-04-30 BREAST CANCER [facility] Test 01:07:32 SCREENING [code = BREAST CANCER SCREENING] Future Scheduled 2022-04-30 COLONOSCOPY SCREENING [facility] Test 01:07:32 [code = COLONOSCOPY SCREENING] Future Scheduled 2022-04-30 HEPATITIS B VACCINES Met [facility] Test 01:07:32 (1 of 3 - Risk 3-dose series) [code = HEPATITIS B VACCINES (1 of 3 - Risk 3-dose series)] Future Scheduled 2022-04-30 COVID-19 VACCINE (3 - [facility] Test 01:07:32 Booster for Pfizer series) [code = COVID-19 VACCINE (3 - Booster for Pfizer series)] Future Scheduled 2022-04-30 65+ [facility]32 VACCINE (4 - PPSV23 if available, else PCV20) [code = 65+ PNEUMOCOCCAL VACCINE (4 - PPSV23 if available, else PCV20)] Future Scheduled 2022-04-30 INFLUENZA VACCINE Method [facility] Test 01:07:32 [code = INFLUENZA VACCINE] Future Scheduled 2022-04-25 SHINGLES VACCINES (1 Met [facility] Test 01:45:02 of 2) [code = SHINGLES VACCINES (1 of 2)] Future Scheduled 2022-04-25 BREAST CANCER [facility] Test 01:45:02 SCREENING [code = BREAST CANCER SCREENING] Future Scheduled 2022-04-25 COLONOSCOPY SCREENING [facility] Test 01:45:02 [code = COLONOSCOPY SCREENING] Future Scheduled 2022-04-25 HEPATITIS B VACCINES Met [facility] Test 01:45:02 (1 of 3 - Risk 3-dose series) [code = HEPATITIS B VACCINES (1 of 3 - Risk 3-dose series)] Future Scheduled 2022-04-25 COVID-19 VACCINE (3 - Me [facility] Test 01:45:02 Booster for Pfizer series) [code = COVID-19 VACCINE (3 - Booster for Pfizer series)] Future Scheduled 2022-04-25 65+ [facility] 01:45:02 VACCINE (4 - PPSV23 if available, else PCV20) [code = 65+ PNEUMOCOCCAL VACCINE (4 - PPSV23 if available, else PCV20)] Future Scheduled 2022-04-25 INFLUENZA VACCINE Method [facility] Test 01:45:02 [code = INFLUENZA VACCINE] Future Scheduled 2022-03-25 SHINGLES VACCINES (1 Met [facility] Test 14:48:42 of 2) [code = SHINGLES VACCINES (1 of 2)] Future Scheduled 2022-03-25 BREAST CANCER [facility] Test 14:48:42 SCREENING [code = BREAST CANCER SCREENING] Future Scheduled 2022-03-25 COLONOSCOPY SCREENING [facility] Test 14:48:42 [code = COLONOSCOPY SCREENING] Future Scheduled 2022-03-25 HEPATITIS B VACCINES Met [facility] Test 14:48:42 (1 of 3 - Risk 3-dose series) [code = HEPATITIS B VACCINES (1 of 3 - Risk 3-dose series)] Future Scheduled 2022-03-25 COVID-19 VACCINE (3 - Me [facility] Test 14:48:42 Booster for Pfizer series) [code = COVID-19 VACCINE (3 - Booster for Pfizer series)] Future Scheduled 2022-03-25 65+ [facility]AL [facility] 14:48:42 VACCINE (4 - PPSV23 if available, else PCV20) [code = 65+ PNEUMOCOCCAL VACCINE (4 - PPSV23 if available, else PCV20)] Future Scheduled 2022-03-25 INFLUENZA VACCINE Method [facility] Test 14:48:42 [code = INFLUENZA VACCINE] Future Scheduled 2022-03-25 SHINGLES VACCINES (1 Met [facility] Test 14:48:42 of 2) [code = SHINGLES VACCINES (1 of 2)] Future Scheduled 2022-03-25 BREAST CANCER [facility] Test 14:48:42 SCREENING [code = BREAST CANCER SCREENING] Future Scheduled 2022-03-25 COLONOSCOPY SCREENING [facility] Test 14:48:42 [code = COLONOSCOPY SCREENING] Future Scheduled 2022-03-25 HEPATITIS B VACCINES Met [facility] Test 14:48:42 (1 of 3 - Risk 3-dose series) [code = HEPATITIS B VACCINES (1 of 3 - Risk 3-dose series)] Future Scheduled 2022-03-25 COVID-19 VACCINE (3 - [facility] Test 14:48:42 Booster for Pfizer series) [code = COVID-19 VACCINE (3 - Booster for Pfizer series)] Future Scheduled 2022-03-25 65+ [facility]AL [facility] Test 14:48:42 VACCINE (4 - PPSV23 if available, else PCV20) [code = 65+ PNEUMOCOCCAL VACCINE (4 - PPSV23 if available, else PCV20)] Future Scheduled 2022-03-25 INFLUENZA VACCINE Method [facility] Test 14:48:42 [code = INFLUENZA VACCINE] Future Scheduled 2022-03-25 SHINGLES VACCINES (1 Met [facility] Test 14:48:42 of 2) [code = SHINGLES VACCINES (1 of 2)] Future Scheduled 2022-03-25 BREAST CANCER [facility] Test 14:48:42 SCREENING [code = BREAST CANCER SCREENING] Future Scheduled 2022-03-25 COLONOSCOPY SCREENING Me [facility] Test 14:48:42 [code = COLONOSCOPY SCREENING] Future Scheduled 2022-03-25 HEPATITIS B VACCINES Met [facility] Test 14:48:42 (1 of 3 - Risk 3-dose series) [code = HEPATITIS B VACCINES (1 of 3 - Risk 3-dose series)] Future Scheduled 2022-03-25 COVID-19 VACCINE (3 - Me [facility] Test 14:48:42 Booster for Pfizer series) [code = COVID-19 VACCINE (3 - Booster for Pfizer series)] Future Scheduled 2022-03-25 65+ PNEUMOCOCCAL Method[facility] Test 14:48:42 VACCINE (4 - PPSV23 if available, else PCV20) [code = 65+ PNEUMOCOCCAL VACCINE (4 - PPSV23 if available, else PCV20)] Future Scheduled 2022-03-25 INFLUENZA VACCINE Method [facility] Test 14:48:42 [code = INFLUENZA VACCINE] Future Scheduled 2022-03-25 SHINGLES VACCINES (1 Met [facility] Test 14:48:42 of 2) [code = SHINGLES VACCINES (1 of 2)] Future Scheduled 2022-03-25 BREAST CANCER [facility] Test 14:48:42 SCREENING [code = BREAST CANCER SCREENING] Future Scheduled 2022-03-25 COLONOSCOPY SCREENING [facility] Test 14:48:42 [code = COLONOSCOPY SCREENING] Future Scheduled 2022-03-25 HEPATITIS B VACCINES Met [facility] Test 14:48:42 (1 of 3 - Risk 3-dose series) [code = HEPATITIS B VACCINES (1 of 3 - Risk 3-dose series)] Future Scheduled 2022-03-25 COVID-19 VACCINE (3 - Me [facility] Test 14:48:42 Booster for Pfizer series) [code = COVID-19 VACCINE (3 - Booster for Pfizer series)] Future Scheduled 2022-03-25 65+ [facility]OCOCCAL [facility] Test 14:48:42 VACCINE (4 - PPSV23 if available, else PCV20) [code = 65+ PNEUMOCOCCAL VACCINE (4 - PPSV23 if available, else PCV20)] Future Scheduled 2022-03-25 INFLUENZA VACCINE Method [facility] Test 14:48:42 [code = INFLUENZA VACCINE] Future Scheduled 2022-03-25 SHINGLES VACCINES (1 Met [facility] Test 14:48:42 of 2) [code = SHINGLES VACCINES (1 of 2)] Future Scheduled 2022-03-25 BREAST CANCER [facility] Test 14:48:42 SCREENING [code = BREAST CANCER SCREENING] Future Scheduled 2022-03-25 COLONOSCOPY SCREENING [facility] Test 14:48:42 [code = COLONOSCOPY SCREENING] Future Scheduled 2022-03-25 HEPATITIS B VACCINES Met [facility] Test 14:48:42 (1 of 3 - Risk 3-dose series) [code = HEPATITIS B VACCINES (1 of 3 - Risk 3-dose series)] Future Scheduled 2022-03-25 COVID-19 VACCINE (3 - [facility] Test 14:48:42 Booster for Pfizer series) [code = COVID-19 VACCINE (3 - Booster for Pfizer series)] Future Scheduled 2022-03-25 65+ PNEUMOCOCCAL [facility] Test 14:48:42 VACCINE (4 - PPSV23 if available, else PCV20) [code = 65+ PNEUMOCOCCAL VACCINE (4 - PPSV23 if available, else PCV20)] Future Scheduled 2022-03-25 INFLUENZA VACCINE Method [facility] Test 14:48:42 [code = INFLUENZA VACCINE] Future Scheduled 2022-03-25 SHINGLES VACCINES (1 Met [facility] Test 14:48:42 of 2) [code = SHINGLES VACCINES (1 of 2)] Future Scheduled 2022-03-25 BREAST CANCER [facility] Test 14:48:42 SCREENING [code = BREAST CANCER SCREENING] Future Scheduled 2022-03-25 COLONOSCOPY SCREENING [facility] Test 14:48:42 [code = COLONOSCOPY SCREENING] Future Scheduled 2022-03-25 HEPATITIS B VACCINES Met [facility] Test 14:48:42 (1 of 3 - Risk 3-dose series) [code = HEPATITIS B VACCINES (1 of 3 - Risk 3-dose series)] Future Scheduled 2022-03-25 COVID-19 VACCINE (3 - [facility] Test 14:48:42 Booster for Pfizer series) [code = COVID-19 VACCINE (3 - Booster for Pfizer series)] Future Scheduled 2022-03-25 65+ [facility]CCAL [facility] Test 14:48:42 VACCINE (4 - PPSV23 if available, else PCV20) [code = 65+ PNEUMOCOCCAL VACCINE (4 - PPSV23 if available, else PCV20)] Future Scheduled 2022-03-25 INFLUENZA VACCINE Method [facility] Test 14:48:42 [code = INFLUENZA VACCINE] Future Scheduled 2022-03-25 SHINGLES VACCINES (1 Met [facility] Test 14:48:42 of 2) [code = SHINGLES VACCINES (1 of 2)] Future Scheduled 2022-03-25 BREAST CANCER [facility] Test 14:48:42 SCREENING [code = BREAST CANCER SCREENING] Future Scheduled 2022-03-25 COLONOSCOPY SCREENING [facility] Test 14:48:42 [code = COLONOSCOPY SCREENING] Future Scheduled 2022-03-25 HEPATITIS B VACCINES Met [facility] Test 14:48:42 (1 of 3 - Risk 3-dose series) [code = HEPATITIS B VACCINES (1 of 3 - Risk 3-dose series)] Future Scheduled 2022-03-25 COVID-19 VACCINE (3 - Me [facility] Test 14:48:42 Booster for Pfizer series) [code = COVID-19 VACCINE (3 - Booster for Pfizer series)] Future Scheduled 2022-03-25 65+ [facility]OCOCCAL [facility] Test 14:48:42 VACCINE (4 - PPSV23 if available, else PCV20) [code = 65+ PNEUMOCOCCAL VACCINE (4 - PPSV23 if available, else PCV20)] Future Scheduled 2022-03-25 INFLUENZA VACCINE Method [facility] Test 14:48:42 [code = INFLUENZA VACCINE] Future Scheduled 2022-03-25 SHINGLES VACCINES (1 Met [facility] Test 14:48:42 of 2) [code = SHINGLES VACCINES (1 of 2)] Future Scheduled 2022-03-25 BREAST CANCER [facility] Test 14:48:42 SCREENING [code = BREAST CANCER SCREENING] Future Scheduled 2022-03-25 COLONOSCOPY SCREENING [facility] Test 14:48:42 [code = COLONOSCOPY SCREENING] Future Scheduled 2022-03-25 HEPATITIS B VACCINES Met [facility] Test 14:48:42 (1 of 3 - Risk 3-dose series) [code = HEPATITIS B VACCINES (1 of 3 - Risk 3-dose series)] Future Scheduled 2022-03-25 COVID-19 VACCINE (3 - Me [facility] Test 14:48:42 Booster for Pfizer series) [code = COVID-19 VACCINE (3 - Booster for Pfizer series)] Future Scheduled 2022-03-25 65+ [facility]OCOCCAL [facility] Test 14:48:42 VACCINE (4 - PPSV23 if available, else PCV20) [code = 65+ PNEUMOCOCCAL VACCINE (4 - PPSV23 if available, else PCV20)] Future Scheduled 2022-03-25 INFLUENZA VACCINE Method [facility] Test 14:48:42 [code = INFLUENZA VACCINE] Future Scheduled 2022-03-25 SHINGLES VACCINES (1 Met [facility] Test 14:48:42 of 2) [code = SHINGLES VACCINES (1 of 2)] Future Scheduled 2022-03-25 BREAST CANCER [facility] Test 14:48:42 SCREENING [code = BREAST CANCER SCREENING] Future Scheduled 2022-03-25 COLONOSCOPY SCREENING [facility] Test 14:48:42 [code = COLONOSCOPY SCREENING] Future Scheduled 2022-03-25 HEPATITIS B VACCINES Met [facility] Test 14:48:42 (1 of 3 - Risk 3-dose series) [code = HEPATITIS B VACCINES (1 of 3 - Risk 3-dose series)] Future Scheduled 2022-03-25 COVID-19 VACCINE (3 - [facility] Test 14:48:42 Booster for Pfizer series) [code = COVID-19 VACCINE (3 - Booster for Pfizer series)] Future Scheduled 2022-03-25 65+ [facility]CCAL [facility] Test 14:48:42 VACCINE (4 - PPSV23 if available, else PCV20) [code = 65+ PNEUMOCOCCAL VACCINE (4 - PPSV23 if available, else PCV20)] Future Scheduled 2022-03-25 INFLUENZA VACCINE Method [facility] Test 14:48:42 [code = INFLUENZA VACCINE] Future Scheduled 2022-03-04 SHINGLES VACCINES (1 Met [facility] Test 14:03:57 of 2) [code = SHINGLES VACCINES (1 of 2)] Future Scheduled 2022-03-04 BREAST CANCER [facility] Test 14:03:57 SCREENING [code = BREAST CANCER SCREENING] Future Scheduled 2022-03-04 COLONOSCOPY SCREENING [facility] Test 14:03:57 [code = COLONOSCOPY SCREENING] Future Scheduled 2022-03-04 HEPATITIS B VACCINES Met [facility] Test 14:03:57 (1 of 3 - Risk 3-dose series) [code = HEPATITIS B VACCINES (1 of 3 - Risk 3-dose series)] Future Scheduled 2022-03-04 COVID-19 VACCINE (3 - [facility] Test 14:03:57 Booster for Pfizer series) [code = COVID-19 VACCINE (3 - Booster for Pfizer series)] Future Scheduled 2022-03-04 65+ [facility]CCAL [facility] Test 14:03:57 VACCINE (4 - PPSV23 if available, else PCV20) [code = 65+ PNEUMOCOCCAL VACCINE (4 - PPSV23 if available, else PCV20)] Future Scheduled 2022-03-04 INFLUENZA VACCINE Method [facility] Test 14:03:57 [code = INFLUENZA VACCINE] Future Scheduled 2022-03-04 SHINGLES VACCINES (1 Met [facility] Test 14:03:57 of 2) [code = SHINGLES VACCINES (1 of 2)] Future Scheduled 2022-03-04 BREAST CANCER [facility] Test 14:03:57 SCREENING [code = BREAST CANCER SCREENING] Future Scheduled 2022-03-04 COLONOSCOPY SCREENING [facility] Test 14:03:57 [code = COLONOSCOPY SCREENING] Future Scheduled 2022-03-04 HEPATITIS B VACCINES Met [facility] Test 14:03:57 (1 of 3 - Risk 3-dose series) [code = HEPATITIS B VACCINES (1 of 3 - Risk 3-dose series)] Future Scheduled 2022-03-04 COVID-19 VACCINE (3 - [facility] Test 14:03:57 Booster for Pfizer series) [code = COVID-19 VACCINE (3 - Booster for Pfizer series)] Future Scheduled 2022-03-04 65+ PNEUMOCOCCAL [facility] Test 14:03:57 VACCINE (4 - PPSV23 if available, else PCV20) [code = 65+ PNEUMOCOCCAL VACCINE (4 - PPSV23 if available, else PCV20)] Future Scheduled 2022-03-04 INFLUENZA VACCINE Method [facility] Test 14:03:57 [code = INFLUENZA VACCINE] Future Scheduled 2022-03-04 SHINGLES VACCINES (1 Met [facility] Test 14:03:57 of 2) [code = SHINGLES VACCINES (1 of 2)] Future Scheduled 2022-03-04 BREAST CANCER [facility] Test 14:03:57 SCREENING [code = BREAST CANCER SCREENING] Future Scheduled 2022-03-04 COLONOSCOPY SCREENING [facility] Test 14:03:57 [code = COLONOSCOPY SCREENING] Future Scheduled 2022-03-04 HEPATITIS B VACCINES Met [facility] Test 14:03:57 (1 of 3 - Risk 3-dose series) [code = HEPATITIS B VACCINES (1 of 3 - Risk 3-dose series)] Future Scheduled 2022-03-04 COVID-19 VACCINE (3 - Me [facility] Test 14:03:57 Booster for Pfizer series) [code = COVID-19 VACCINE (3 - Booster for Pfizer series)] Future Scheduled 2022-03-04 65+ PNEUMOCOCCAL [facility] Test 14:03:57 VACCINE (4 - PPSV23 if available, else PCV20) [code = 65+ PNEUMOCOCCAL VACCINE (4 - PPSV23 if available, else PCV20)] Future Scheduled 2022-03-04 INFLUENZA VACCINE Method [facility] Test 14:03:57 [code = INFLUENZA VACCINE] Future Scheduled 2022-03-04 SHINGLES VACCINES (1 Met [facility] Test 14:03:57 of 2) [code = SHINGLES VACCINES (1 of 2)] Future Scheduled 2022-03-04 BREAST CANCER [facility] Test 14:03:57 SCREENING [code = BREAST CANCER SCREENING] Future Scheduled 2022-03-04 COLONOSCOPY SCREENING [facility] Test 14:03:57 [code = COLONOSCOPY SCREENING] Future Scheduled 2022-03-04 HEPATITIS B VACCINES Met [facility] Test 14:03:57 (1 of 3 - Risk 3-dose series) [code = HEPATITIS B VACCINES (1 of 3 - Risk 3-dose series)] Future Scheduled 2022-03-04 COVID-19 VACCINE (3 - [facility] Test 14:03:57 Booster for Pfizer series) [code = COVID-19 VACCINE (3 - Booster for Pfizer series)] Future Scheduled 2022-03-04 65+ [facility] 14:03:57 VACCINE (4 - PPSV23 if available, else PCV20) [code = 65+ PNEUMOCOCCAL VACCINE (4 - PPSV23 if available, else PCV20)] Future Scheduled 2022-03-04 INFLUENZA VACCINE Method [facility] Test 14:03:57 [code = INFLUENZA VACCINE] Future Scheduled 2022-02-11 SHINGLES VACCINES (1 Met [facility] Test 13:39:12 of 2) [code = SHINGLES VACCINES (1 of 2)] Future Scheduled 2022-02-11 BREAST CANCER [facility] Test 13:39:12 SCREENING [code = BREAST CANCER SCREENING] Future Scheduled 2022-02-11 [facility]COPY [facility]CRE[facility]ING [facility] [facility] Test 13:39:12 [code = COLONOSCOPY SCREENING] Future Scheduled 2022-02-11 HEPATITIS B VACCINES Met [facility] Test 13:39:12 (1 of 3 - Risk 3-dose series) [code = HEPATITIS B VACCINES (1 of 3 - Risk 3-dose series)] Future Scheduled 2022-02-11 COVID-19 VACCINE (3 - Me [facility] Test 13:39:12 Booster for Pfizer series) [code = COVID-19 VACCINE (3 - Booster for Pfizer series)] Future Scheduled 2022-02-11 65+ [facility]AL [facility] 13:39:12 VACCINE (4 - PPSV23 or PCV20) [code = 65+ PNEUMOCOCCAL VACCINE (4 - PPSV23 or PCV20)] Future Scheduled 2022-02-11 INFLUENZA VACCINE Method [facility] Test 13:39:12 [code = INFLUENZA VACCINE] Future Scheduled 2022-01-29 SHINGLES VACCINES (1 Met [facility] Test 14:07:20 of 2) [code = SHINGLES VACCINES (1 of 2)] Future Scheduled 2022-01-29 BREAST CANCER [facility] Test 14:07:20 SCREENING [code = BREAST CANCER SCREENING] Future Scheduled 2022-01-29 COLONOSCOPY SCREENING [facility] Test 14:07:20 [code = COLONOSCOPY SCREENING] Future Scheduled 2022-01-29 HEPATITIS B VACCINES Met [facility] Test 14:07:20 (1 of 3 - Risk 3-dose series) [code = HEPATITIS B VACCINES (1 of 3 - Risk 3-dose series)] Future Scheduled 2022-01-29 COVID-19 VACCINE (3 - [facility] Test 14:07:20 Booster for Pfizer series) [code = COVID-19 VACCINE (3 - Booster for Pfizer series)] Future Scheduled 2022-01-29 65+ [facility]CCAL [facility] Test 14:07:20 VACCINE (4 - PPSV23 or PCV20) [code = 65+ PNEUMOCOCCAL VACCINE (4 - PPSV23 or PCV20)] Future Scheduled 2022-01-29 INFLUENZA VACCINE Method [facility] Test 14:07:20 [code = INFLUENZA VACCINE] Future Scheduled 2022-01-29 SHINGLES VACCINES (1 Met [facility] Test 14:07:20 of 2) [code = SHINGLES VACCINES (1 of 2)] Future Scheduled 2022-01-29 BREAST CANCER [facility] Test 14:07:20 SCREENING [code = BREAST CANCER SCREENING] Future Scheduled 2022-01-29 COLONOSCOPY SCREENING [facility] Test 14:07:20 [code = COLONOSCOPY SCREENING] Future Scheduled 2022-01-29 HEPATITIS B VACCINES Met [facility] Test 14:07:20 (1 of 3 - Risk 3-dose series) [code = HEPATITIS B VACCINES (1 of 3 - Risk 3-dose series)] Future Scheduled 2022-01-29 COVID-19 VACCINE (3 - [facility] Test 14:07:20 Booster for Pfizer series) [code = COVID-19 VACCINE (3 - Booster for Pfizer series)] Future Scheduled 2022-01-29 65+ PNEUMOCOCCAL [facility] Test 14:07:20 VACCINE (4 - PPSV23 or PCV20) [code = 65+ PNEUMOCOCCAL VACCINE (4 - PPSV23 or PCV20)] Future Scheduled 2022-01-29 INFLUENZA VACCINE Method [facility] Test 14:07:20 [code = INFLUENZA VACCINE] Future Scheduled 2022-01-29 SHINGLES VACCINES (1 Met [facility] Test 14:07:20 of 2) [code = SHINGLES VACCINES (1 of 2)] Future Scheduled 2022-01-29 BREAST CANCER [facility] Test 14:07:20 SCREENING [code = BREAST CANCER SCREENING] Future Scheduled 2022-01-29 COLONOSCOPY SCREENING [facility] Test 14:07:20 [code = COLONOSCOPY SCREENING] Future Scheduled 2022-01-29 HEPATITIS B VACCINES Met [facility] Test 14:07:20 (1 of 3 - Risk 3-dose series) [code = HEPATITIS B VACCINES (1 of 3 - Risk 3-dose series)] Future Scheduled 2022-01-29 COVID-19 VACCINE (3 - [facility] Test 14:07:20 Booster for Pfizer series) [code = COVID-19 VACCINE (3 - Booster for Pfizer series)] Future Scheduled 2022-01-29 65+ PNEUMOCOCCAL [facility] Test 14:07:20 VACCINE (4 - PPSV23 or PCV20) [code = 65+ PNEUMOCOCCAL VACCINE (4 - PPSV23 or PCV20)] Future Scheduled 2022-01-29 INFLUENZA VACCINE Method [facility] Test 14:07:20 [code = INFLUENZA VACCINE] Future Scheduled 2022-01-29 SHINGLES VACCINES (1 Met [facility] Test 14:07:20 of 2) [code = SHINGLES VACCINES (1 of 2)] Future Scheduled 2022-01-29 BREAST CANCER [facility] Test 14:07:20 SCREENING [code = BREAST CANCER SCREENING] Future Scheduled 2022-01-29 COLONOSCOPY SCREENING [facility] Test 14:07:20 [code = COLONOSCOPY SCREENING] Future Scheduled 2022-01-29 HEPATITIS B VACCINES Met [facility] Test 14:07:20 (1 of 3 - Risk 3-dose series) [code = HEPATITIS B VACCINES (1 of 3 - Risk 3-dose series)] Future Scheduled 2022-01-29 COVID-19 VACCINE (3 - [facility] Test 14:07:20 Booster for Pfizer series) [code = COVID-19 VACCINE (3 - Booster for Pfizer series)] Future Scheduled 2022-01-29 65+ [facility]CCAL [facility] Test 14:07:20 VACCINE (4 - PPSV23 or PCV20) [code = 65+ PNEUMOCOCCAL VACCINE (4 - PPSV23 or PCV20)] Future Scheduled 2022-01-29 INFLUENZA VACCINE Method [facility] Test 14:07:20 [code = INFLUENZA VACCINE] Future Scheduled 2022-01-20 SHINGLES VACCINES (1 Met [facility] Test 06:12:34 of 2) [code = SHINGLES VACCINES (1 of 2)] Future Scheduled 2022-01-20 Screening for [facility] Test 06:12:34 malignant neoplasm of cervix (procedure) [code = [id number]] Future Scheduled 2022-01-20 BREAST CANCER [facility] Test 06:12:34 SCREENING [code = BREAST CANCER SCREENING] Future Scheduled 2022-01-20 COLONOSCOPY SCREENING [facility] Test 06:12:34 [code = COLONOSCOPY SCREENING] Future Scheduled 2022-01-20 HEPATITIS B VACCINES Met [facility] Test 06:12:34 (1 of 3 - Risk 3-dose series) [code = HEPATITIS B VACCINES (1 of 3 - Risk 3-dose series)] Future Scheduled 2022-01-20 COVID-19 VACCINE (3 - [facility] Test 06:12:34 Booster for Pfizer series) [code = COVID-19 VACCINE (3 - Booster for Pfizer series)] Future Scheduled 2022-01-20 65+ PNEUMOCOCCAL [facility] Test 06:12:34 VACCINE (4 - PPSV23 or PCV20) [code = 65+ PNEUMOCOCCAL VACCINE (4 - PPSV23 or PCV20)] Future Scheduled 2022-01-20 INFLUENZA VACCINE Method [facility] Test 06:12:34 [code = INFLUENZA VACCINE] Future Scheduled 2022-01-16 SHINGLES VACCINES (1 Met [facility] Test 12:09:25 of 2) [code = SHINGLES VACCINES (1 of 2)] Future Scheduled 2022-01-16 Screening for [facility] Test 12:09:25 malignant neoplasm of cervix (procedure) [code = [id number]] Future Scheduled 2022-01-16 BREAST CANCER [facility] Test 12:09:25 SCREENING [code = BREAST CANCER SCREENING] Future Scheduled 2022-01-16 COLONOSCOPY SCREENING [facility] Test 12:09:25 [code = COLONOSCOPY SCREENING] Future Scheduled 2022-01-16 HEPATITIS B VACCINES Met [facility] Test 12:09:25 (1 of 3 - Risk 3-dose series) [code = HEPATITIS B VACCINES (1 of 3 - Risk 3-dose series)] Future Scheduled 2022-01-16 COVID-19 VACCINE (3 - [facility] Test 12:09:25 Booster for Pfizer series) [code = COVID-19 VACCINE (3 - Booster for Pfizer series)] Future Scheduled 2022-01-16 65+ PNEUMOCOCCAL [facility] Test 12:09:25 VACCINE (4 - PPSV23 or PCV20) [code = 65+ PNEUMOCOCCAL VACCINE (4 - PPSV23 or PCV20)] Future Scheduled 2022-01-16 INFLUENZA VACCINE Method [facility] Test 12:09:25 [code = INFLUENZA VACCINE] Future Scheduled 2022-01-14 SHINGLES VACCINES (1 Met [facility] Test 04:11:46 of 2) [code = SHINGLES VACCINES (1 of 2)] Future Scheduled 2022-01-14 Screening for [facility] Test 04:11:46 malignant neoplasm of cervix (procedure) [code = [id number]] Future Scheduled 2022-01-14 BREAST CANCER [facility] Test 04:11:46 SCREENING [code = BREAST CANCER SCREENING] Future Scheduled 2022-01-14 COLONOSCOPY SCREENING [facility] Test 04:11:46 [code = COLONOSCOPY SCREENING] Future Scheduled 2022-01-14 HEPATITIS B VACCINES Met [facility] Test 04:11:46 (1 of 3 - Risk 3-dose series) [code = HEPATITIS B VACCINES (1 of 3 - Risk 3-dose series)] Future Scheduled 2022-01-14 COVID-19 VACCINE (3 - Me [facility] Test 04:11:46 Booster for Pfizer series) [code = COVID-19 VACCINE (3 - Booster for Pfizer series)] Future Scheduled 2022-01-14 65+ PNEUMOCOCCAL [facility] Test 04:11:46 VACCINE (4 - PPSV23 or PCV20) [code = 65+ PNEUMOCOCCAL VACCINE (4 - PPSV23 or PCV20)] Future Scheduled 2022-01-14 INFLUENZA VACCINE Method [facility] Test 04:11:46 [code = INFLUENZA VACCINE] Future Scheduled 2021-08-26 Screening for [facility] Test 13:02:23 malignant neoplasm of cervix (procedure) [code = [id number]] Future Scheduled 2021-08-26 BREAST CANCER [facility] Test 13:02:23 SCREENING [code = BREAST CANCER SCREENING] Future Scheduled 2021-08-26 COLONOSCOPY SCREENING [facility] Test 13:02:23 [code = COLONOSCOPY SCREENING] Future Scheduled 2021-08-26 Screening for [facility] Test 13:02:23 malignant neoplasm of lung (procedure) [code = [id number]] Future Scheduled 2021-08-26 SHINGLES VACCINES (#1) [facility] Test 13:02:23 [code = SHINGLES VACCINES (#1)] Future Scheduled 2021-08-26 COVID-19 VACCINE (3 - [facility] Test 13:02:23 Pfizer risk 4-dose series) [code = COVID-19 VACCINE (3 - Pfizer risk 4-dose series)] Future Scheduled 2021-08-26 65+ PNEUMOCOCCAL [facility] Test 13:02:23 VACCINE (4 of 4 - PPSV23) [code = 65+ PNEUMOCOCCAL VACCINE (4 of 4 - PPSV23)] Future Scheduled 2021-08-26 INFLUENZA VACCINE Method [facility] Test 13:02:23 [code = INFLUENZA VACCINE] Encounters Start End Encounter Admission Attending Care Care Encounter Source Date/Time Date/Time Type Type Clinicians Facility Department ID 2022-02-18 Outpatient [facility] [id number] [place] 14:30:[address] [place] [address] and [facility] 2021-07-14 Outpatient SADIKOVIC, [facility] [id number] [place] 09:33:51 ELAN [facility] 2021-06-02 Outpatient HEMATPOUR, [facility] [id number] [place] 13:58:59 [facility] 2021-04-28 Outpatient HEMATPOUR, [facility] [id number] [place] 11:21:22 [facility] 2021-03-20 Emergency [facility] [id number] [facility]12 [facility] HEM[facility], [facility] [id number] [place] 08:16:46 [facility]HASHAYAR [facility] 2020-10-31 Outpatient HEMATPOUR, [facility] [id number] [place] 09:44:50 KHASHAYAR Healt [facility] 2020-09-30 Outpatient HEMATPOUR, [facility] [id number] [place] 13:16:03 [facility] 2022-04-22 2022-04-22 Emergency [facility] [id number] Univers 13:55:00 17:00:00 [facility] 2022-04-22 2022-04-22 [facility] 1.2.745.561 [id number] Univers 13:55:00 17:00:00 Paulette [facility] 350.1.13.10 i ty of [place] 4.2.7.2.686 [facility] [id number] [place] [id number] [place] 2022-04-07 2022-04-07 Outpatient R UNKNOWN, [facility] [id number] Univers 20:40:00 20:40:00 ATTENDING ity [facility] 2022-04-07 2022-04-07 Telephone Devin 1.2.840.5 [id number] Univers 00:00:00 00:00:00 Robbi Hairston 70720.1.1 i ty of 3.104.2.7 [place] [id number] Medica l .8 [place] 2022-03-05 2022-03-05 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 Santiago Cardenas 1.2.840.1 [id number] Univers 13:45:00 14:00:00 Visit [facility] 04807.1.1 ity of 3.104.2.7 [place] .3.761618 Medica l .8 [place] 2022-03-05 2022-03-05 Office Ronald [facility] [place] 1.2.132.677 [id number] Univers 13:00:00 13:30:00 Visit Santiago [facility] 350.1.13.10 i ty of [place] 4[place] [id number] Medi porfirio 089 [place] 2022-03-05 2022-03-05 Outpatient R [facility] [id number] Univers 13:00:00 13:00:00 [facility] 2022-02-26 2022-02-26 Outpatient R [facility] [id number] Univers 08:30:00 08:30:00 [facility] 2022-02-26 2022-02-26 Outpatient R [facility] [id number] Univers 08:30:00 08:30:00 [facility] 2022-02-17 2022-02-17 Transition Stevo, 1.2.840.8 [id number] Univers 00:00:00 00:00:00 of Care Isaias Arredondo 32686.1.1 it y of 3.104.2.7 [place] .3.053486 Medica l .8 [place] 2022-02-10 2022-02-16 Inpatient X [facility] FAVIO [id number] Univers 22:59:00 19:27:00 TOMY itcharlie [facility] 2022-02-10 2022-02-16 Hospital Reilly Means 1.2.840.1 [id number] Univers 22:59:00 19:27:00 Encounter Ofe Shields 14722.1.1 ity of [place] 3.[place].2.7 [place] .3.221870 Medica l .8 [place] 2022-02-11 2022-02-11 Telephone East, 1.2.840.1 [id number] Univers 00:00:00 00:00:00 Santiago 92392.1.1 ity of 3.104.2.7 [place] .3.493276 Medica l .8 Branch 2022-02-10 2022-02-10 Travel 1.2.840.1 1.2.916.628 [id number] Univers 00:00:00 00:00:00 91888.1.1 350.1.13.10 ity of 3.104.2.7 4.2.7.3.698 [place] .3.501270 084.8 Medica l .8 Branch 2022-01-30 2022-01-30 Telephone East, 1.2.840.2 [id number] Univers 00:00:00 00:00:00 Santiago 51486.1.1 ity of 3.104.2.7 [place] .3.304206 Medica l .8 [place] 2022-01-06 2022-01-06 Orders Doctor FERMIN 1.2.840.114 [id number] Univers 00:00:00 00:00:00 Only Unassigned, JACKELINE 350.1.13.10 ity of [employer] [facility] 4.2.7.2.686 Yomi as [id number] [address] 2021-12-25 2021-12-25 Orders Doctor FERMIN 1.2.840.114 [id number] Univers 00:00:00 00:00:00 Only Unassigned, JACKELINE 350.1.13.10 ity of [employer] [facility] 4.2.7.2.686 Yomi as [id number] [address] 2021-12-12 2021-12-13 Emergency X Bill COLES [facility] ERT [id number] Univers 23:53:00 01:52:00 ity of [facility] 2021-12-12 2021-12-13 Emergency Bill Coles [facility] 1.2.840.114 [id number] Univers 23:53:00 01:52:00 Kiersten BULLOCK 350.1.13.10 i ty of [place].2.7.2.686 [place] [id number] [facility] 084 Branch 2021-11-20 2021-11-20 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 [facility] UNIVERSIT 1.2.840.114 [id number] Univers 09:45:00 10:00:00 Visit Santiago Cardenas [facility] 350.1.13.10 ity [place] [id number] [facility] 316 Branch 2021-11-20 2021-11-20 Office [facility] [place] 1.2.333.619 [id number] Univers 08:30:00 09:00:00 Visit [facility] 350.1.13.10 i ty [place] [id number] [facility] 089 [place] 2021-11-20 2021-11-20 Outpatient R [facility] [id number] Univers 08:30:00 08:30:00 [facility] 2021-11-20 2021-11-20 Outpatient R [facility] [id number] Univers 08:30:00 08:30:00 [facility] 2021-11-20 2021-11-20 Outpatient R [facility] [id number] Univers 08:30:00 08:30:00 [facility] 2021-11-20 2021-11-20 Outpatient R [facility] [id number] Univers 08:30:00 08:30:00 [facility] 2021-10-24 2021-10-24 Emergency X WALKER [facility] ERT [id number] Univers 16:27:00 [facility]:26[facility] 2021-10-[facility] 2021-10-24 Emergency X WALKER [facility] ERT [id number] Univers 16:27:00 22:26:00 CHARITY [facility] 2021-10-24 2021-10-24 Emergency Reilly Means [facility] 1.2.840. 114 [id number] Univers 16:27:00 22:26:00 [facility] 350.1.13.10 ity of [place] 4.2.7.2.686 [facility] [id number] [address] 2021-10-23 2021-10-24 Emergency X [facility] ERT [id number] Univers 20:22:00 02:57:00 [facility] 2021-10-23 2021-10-[address] [facility] 1.2.454.849 [id number] Univers 20:22:00 02:57:00 [facility] 350.1.13.10 ity [facility] 4.2.7.2.686 [facility] [id number] [address] 2021-09-07 2021-09-07 Outpatient R [facility] [id number] Univers 08:00:00 08:00:00 GADIEL familia o [facility] 2021-09-07 2021-09-07 Outpatient R SELF, [facility] [id number] Univers 08:00:00 08:00:00 GADIEL barbosa o [facility] 2021-08-21 2021-08-21 [facility] [id number] Univers 10:45:00 10:45:00 SANTIAGO barbosa [facility] 2021-08-21 2021-08-21 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 Santiago Cardenas 1.2.840.1 [id number] Univers 10:45:00 10:45:00 Visit [facility] 66930.1.1 ity of 3.104.2.7 [place] .3.079443 Medica l .8 [place] 2021-08-21 2021-08-21 Office Ronald, 1.2.840.1 [id number] Univers 08:30:00 09:00:00 Visit Santiago 93239.1.1 ity of 3.104.2.7 [place] .3.425694 Medica l .8 [place] 2021-08-21 2021-08-21 Office East, UNIVERSIT 1.2.438.285 [id number] Univers 08:30:00 09:00:00 Visit Santiago [facility] 350.1.13.10 i ty of [place] 4[place] [id number] [facility] porfirio 089 [place] 2021-08-21 2021-08-21 Outpatient [facility] [id number] Univers 08:30:00 08:30:00 SANTIAGO barbosa [facility] 2021-08-21 2021-08-21 Travel 1.2.840.1 1.2.749.646 [id number] Univers 00:00:00 00:00:00 15912.1.1 350.1.13.10 ity of 3.104.2.7 4.[place].7.3.698 [place] .3.399662 084.8 Medica l .8 [place] 2021-08-14 2021-08-14 Telephone East, 1.2.840.1 [id number] Univers 00:00:00 00:00:00 Santiago 04593.1.1 ity of 3.104.2.7 [place] .3.476055 Medica l .8 [place] 2021-08-13 2021-08-13 Telephone East, 1.2.840.1 [id number] Univers 00:00:00 00:00:00 Santiago 00407.1.1 ity of 3.104.2.7 [place] .3.350294 Medica l .8 [place] 2021-08-11 2021-08-11 Outpatient [facility] [id number] Univers 08:00:00 08:00:00 [facility] 2021-08-05 2021-08-05 Inpatient RAUL Ashely, [facility]D [id number] [facility] 05:24:00 05:24:00 Mike [address] 2021-07-20 2021-07-20 Outpatient [facility] [id number] Univers 10:00:00 10:00:00 [facility] 2021-07-14 2021-07-14 Office KIMBERLEY Lira 6400 1.2.840.114 [id number] [place] 08:45:00 09:34:01 Visit Elan ROMERO 350.1.13.58 Health 9.2.7.2.686 [id number] 1 2021-07-09 2021-07-09 Telephone Maryjaneporay, UTP 6400 1.2.840.114 [id number] [place] 00:00:00 00:00:[address] 350.1.13.58 Health 9.2.7.2.686 [id number] 1 2021-07-09 2021-07-09 Telephone Maryjanepour, UTP 6400 1.2.840.114 [id number] [place] 00:00:00 00:00:[address] 350.1.13.58 Health 9.2.7.2.686 [id number] 1 2021-07-03 2021-07-03 Outpatient R EAST, [facility] [id number] Univers 08:00:00 08:00:00 SANTIAGO barbosa [facility] 2021-06-17 2021-06-17 Inpatient Ashely, [facility] INTE.02 [id number] [facility] 10:56:00 14:36:00 Mike [address] [facility] 2021-06-15 2021-06-15 Outpatient R SELF, [facility] [id number] Univers 10:15:00 11:07:21 GADIEL macielcharlie [facility] 2021-06-15 2021-06-15 Outpatient R SELF, [facility] [id number] Univers 10:15:00 10:15:00 GADIEL macielcharlie lela [facility] 2021-06-15 2021-06-15 Outpatient R SELF, [facility] [id number] Univers 10:15:00 10:15:00 GADIEL macielcharlie [facility] 2021-06-15 2021-06-15 Orders Doctor 1.2.840.1 [id number] Univers 00:00:00 00:00:00 Only Unassigned, 84662.1.1 ity of [employer] 3.104.2.7 [place] .3.489423 Medica [facility]8 Branch 2021-06-15 2021-06-15 Travel 1.2.840.1 1.2.722.752 [id number] Univers 00:00:00 00:00:00 68068.1.1 350.1.13.10 ity of 3.104.2.7 4.[place].7.3.698 [place] .3.229644 084.8 Medica l .8 [place] 2021-06-11 2021-06-11 Refill [facility], UNIVERSIT 1.2.206.993 [id number] Univers 00:00:00 00:00:00 [facility] 350.1.13.10 i ty [place] [id number] [facility] 089 [place] 2021-06-11 2021-06-11 Refill East, 1.2.840.2 [id number] Univers 00:00:00 00:00:00 Santiago 73500.1.1 ity of 3.104.2.7 [place] .3.803048 Medica l .8 [place] 2021-06-05 2021-06-05 Outpatient [facility] [id number] Univers 09:00:00 09:00:00 SANTIAGO ity of [facility] 2021-06-02 2021-06-02 Telephone [facility], UNIVERSIT 1.2.840.114 [id number] Univers 00:00:00 00:00:00 [facility] 350.1.13.10 i ty [place] [id number] [address] 2021-06-02 2021-06-02 Telephone East, 1.2.840.2 [id number] Univers 00:00:00 00:00:00 Santiago 61450.1.1 ity of 3.104.2.7 [place] .3.955664 Medica l .8 Branch 2021-05-29 2021-05-29 Telephone East, 1.2.840.5 [id number] Univers 00:00:00 00:00:00 Santiago 54486.1.1 ity of 3.104.2.7 [place] .3.230692 Medica l .8 Branch 2021-05-29 2021-05-29 Telephone East, 1.2.840.1 [id number] [id number] Univers 00:00:00 00:00:00 [place] 44316.1.1 [facility] 3.104.2.7 [place] 78[address].560954 Medica [facility] Branch 2021-05-25 2021-05-25 Outpatient R SELF, [facility] [id number] Univers 08:00:00 08:00:00 GADIEL macielcharlie [facility] 2021-04-29 2021-04-29 Outpatient R LALA, [facility] [id number] Univers 08:00:00 08:00:00 NIKOLAI raheemcharlie [facility] 2021-04-28 2021-04-28 Telephone Maryjanedale [facility] 6400 1.2.840.114 [id number] [place] 00:00:00 00:00:[address] 350.1.13.58 Health 9.2.7.2.686 [id number] 1 2021-04-28 2021-04-28 Telephone Jailyn, 1.2.840.4 [id number] 21 [id number] Methodi 00:00:00 00:00:[address] 3.430.2.7 Hospit a .3.515648 l .8 2021-03-31 2021-03-31 Orders Carol Ann, 1.2.840.1 [id number] Methodi 00:00:00 00:00:00 Only Sarai Lieberman 76397.1.1 979 s t 3.430.2.7 Hospit a .3.191067 l .8 2021-03-30 2021-03-30 Outpatient R SELF, [facility] [id number] Univers 08:45:00 08:45:00 GADIEL vogel clark [facility] 2021-03-24 2021-03-24 Telephone Jailyn 1.2.840.5 [id number] 21 [id number] Methodi 00:00:00 00:00:[address] 3.430.2.7 Hospit a .3.056944 l .2021-02-13 2021-02-13 Telephone Ronald, 1.2.840.9 [id number] [id number] Univers 00:00:00 00:00:00 Santiago 98032.1.1 ity of 3.104.2.7 [place] .3.081706 Medica l .8 Purm[place] 2021-01-28 2021-01-28 Laure REEVES, [facility] [id number] Univers 08:45:00 09:37:00 NIOKLAI ity of [facility] 2021-01-28 2021-01-28 Travel 1.2.840.1 1.2.435.435 [id number] [id number] Univers 00:00:00 00:00:00 52692.1.1 350.1.13.10 ity of 3.104.2.7 4[place].7.3.698 [place] .3.220143 084.8 Medica l .8 Purmela 2021-01-19 2021-01-19 Telephone Pelletier, 1.2.840.1 [id number] [id number] Method 00:00:00 00:00:[address] 3.430.2.7 Hospit a .3.720519 l .8 2021-01-04 2021-01-04 Dmitry Bass, 1.2.840.8 [id number] 696 Univers 00:00:00 00:00:00 (Out) Dagoberto H 63972.1.1 ity of 3.104.2.7 [place] .3.322496 Medica l .8 Pur[place] 2021-01-04 2021-01-04 Dmitry Bass, 1.2.840.3 [id number] 61407 696 Univers 00:00:00 00:00:00 (Out) Dagoberto H 80114.1.1 ity of 3.104.2.7 [place] .3.429428 Medica l .8 [place] 2021-01-03 2021-01-03 Dmitry Bass, 1.2.840.0 [id number] 31720 790 Univers 00:00:00 00:00:00 (Out) Dagoberto H 30524.1.1 ity of 3.104.2.7 [place] .3.179760 Medica l .8 Branch 2021-01-03 2021-01-03 Letter Shelia, 1.2.840.7 [id number] 59214 790 Univers 00:00:00 00:00:00 (Out) Dagoberto Peterson 01513.1.1 ity of 3.104.2.7 [place] .3.971769 Medica l .8 [place] 2021-01-02 2021-01-02 Outpatient [facility] [id number] 786 Univers 13:40:00 13:40:00 ity of [facility] 2021-01-02 2021-01-02 Laboratory Cuba Franks 1.2.840.6 942175 1988 [id number] Univers 12:14:13 12:57:34 Only Lab, [facility] [place] [address].1.1 ity of 3.104.2.7 [place] .3.801221 Medica l .8 [place] 2021-01-02 2021-01-02 Laboratory [place] Franks 1.2.840.2 634194 2109 [id number] Univers 12:14:13 12:57:34 Only Lab, [facility] [place] I 70510.1.1 ity of 3.104.2.7 [place] .3.158199 Medica l .8 Branch 2021-01-02 2021-01-02 Travel 1.2.840.1 1.2.585.130 7808 2306 Univers 00:00:00 00:00:00 48106.1.1 350.1.13.10 ity of 3.104.2.7 4.[place].7.3.698 [place] .3.127401 084.8 Medica l .8 [place] 2021-01-02 2021-01-02 Letter Doctor 1.2.840.8 [id number] 45086 948 Univers 00:00:00 00:00:00 (Out) Unassigned, 69722.1.1 ity of [employer] 3.104.2.7 [place] .3.733434 Medica l .8 [place] 2021-01-02 2021-01-02 Letter Doctor 1.2.840.1 [id number] 40270 946 Univers 00:00:00 00:00:00 (Out) Unassigned, 42609.1.1 ity of [employer] 3.104.2.7 [place] .3.707008 Medica l .8 [place] 2021-01-02 2021-01-02 Travel 1.2.840.1 1.2.215.740 8137 2306 Univers 00:00:00 00:00:00 76350.1.1 350.1.13.10 ity of 3.104.2.7 4.2.7.3.698 [place] .3.031980 084.8 Medica l .8 [place] 2021-01-02 2021-01-02 Letter Doctor 1.2.840.4 [id number] 76645 948 Univers 00:00:00 00:00:00 (Out) Unassigned, 44332.1.1 ity of [employer] 3.104.2.7 [place] .3.332570 Medica l .8 [place] 2021-01-02 2021-01-02 Letter Doctor 1.2.840.4 [id number] 35438 946 Univers 00:00:00 00:00:00 (Out) Unassigned, 25948.1.1 ity of [employer] 3.104.2.7 [place] .3.954937 Medica l .8 Branch 2020-12-22 2020-12-22 Telephone Beltran, 1.2.840.4 [id number] 862 12781 Univers 00:00:00 00:00:00 Devina R 58115.1.1 i ty of 3.104.2.7 [place] .3.264285 Medica l .8 Branch 2020-12-22 2020-12-22 Telephone Beltran, 1.2.840.1 [id number] 862 50957 Univers 00:00:00 00:00:00 Eligionda R 74152.1.1 i ty of 3.104.2.7 [place] .3.732056 Medica l .8 [place] 2020-12-12 2020-12-12 Office Hematpour, [facility] 6400 1.2.840.114 12 [id number] [place] 07:42:02 08:18:[address] 350.1.13.58 Health 9.2.7.2.686 405.1413919 1 2020-12-12 2020-12-12 Office Hematporay, UTP 6400 1.2.840.114 12 [id number] 07:42:02 08:18:[address] 350.1.13.58 9.2.7.2.686 [id number] 1 2020-12-09 2020-12-09 Telephone [facility], 1.2.840.1 [id number] Methodi 00:00:00 00:00:00 Sarai Corbin. 32517.1.1 316 s t 3.430.2.7 Hospit a .3.666900 l .8 2020-12-08 2020-12-08 [facility], 1.2.840.1 [id number] 2100 004825 Methodi 12:35:54 23:59:00 Encounter Ray [address]28.1.[address] 3.430.2.7 Hospit a .3.798282 l .8 2020-12-08 2020-12-08 [facility], 1.2.840.1 [id number] 81224 34215 Methodi 17:25:00 17:30:[address] 3.430.2.7 Hospit a .3.637020 l .8 2020-12-08 2020-12-08 [facility] 1.2.840.1 [id number] 92521 90861 Methodi 10:30:00 11:39:56 Visit Ray 24754.1.[address] 3.430.2.7 Hospit a .3.929935 l .8 2020-12-08 2020-12-08 Travel 1.2.840.1 1.2.000.862 2393 680343 Methodi 00:00:00 00:00:[address] 3.430.2.7 0.2.7.3.698 Ho spita .3.306312 084.8 l .8 2020-12-02 2020-12-02 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 Yohan Cardenasrey 1.2.840.1 [id number] Univers 10:20:06 10:36:19 Visit [facility] 35558.1.1 ity of 3.104.2.7 [place] .3.298201 Medica l .8 Branch 2020-12-02 2020-12-02 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 RonaldSantiago 1.2.840.1 [id number] [facility] 10:20:06 10:36:19 Visit [facility] 81923.1.1 ity of 3.104.2.7 [place] .3.765681 Medica l .8 [place] 2020-12-02 2020-12-02 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 [facility] UNIVERSIT 1.2.840.114 8 [id number] 10:20:06 10:36:19 Visit [facility] 350.1.13.10 CLINICS 4.2.7.2.686 [id number] [facility] 2020-12-02 2020-12-02 Office Ronald, 1.2.840.3 [id number] 70901 528 Univers 08:31:37 09:01:37 Visit Santiago 64116.1.1 ity of 3.104.2.7 [place] .3.267273 Medica l .8 [place] 2020-12-02 2020-12-02 [facility] [id number] 304 Univers 09:00:00 09:00:00 SANTIAGO ity of [facility] 2020-11-25 2020-11-25 Office Beltran, 1.2.840.7 [id number] 24910 865 Univers 11:06:30 11:58:14 Visit Robbi Hairston 31747.1.1 i ty of 3.104.2.7 [place] .3.177281 Medica l .8 [place] 2020-11-25 2020-11-25 Office Beltran, 1.2.840.4 [id number] 54203 865 Univers 11:06:30 11:58:14 Visit Robbi Hairston 70774.1.1 i ty of 3.104.2.7 [place] .3.462057 Medica l .8 [place] 2020-11-25 2020-11-25 Office Devin [facility] 1.2.840.114 405003 65 11:06:30 11:58:14 Visit Robbi Marika [employer] 350.1.13.10 REGIONAL 4.2.7.2.686 MATERNAL [id number] & CHILD [address] [place] [address] 2020-11-25 2020-11-25 Outpatient R [facility] [id number] 288 Univers 11:00:00 11:00:00 ity of [facility] 2020-11-25 2020-11-25 Telephone Devin, 1.2.840.2 [id number] 855 13075 Univers 00:00:00 00:00:00 Robbi Hairston 52794.1.1 i ty of 3.104.2.7 [place] .3.653615 Medica l .8 [place] 2020-11-25 2020-11-25 Refill East, 1.2.840.7 [id number] 93081 592 Univers 00:00:00 00:00:00 Santiago 79718.1.1 ity of 3.104.2.7 [place] .3.766027 Medica l .8 [place] 2020-11-25 2020-11-25 Travel 1.2.840.1 1.2.553.369 8148 0247 Univers 00:00:00 00:00:00 51632.1.1 350.1.13.10 ity of 3.104.2.7 4.2.7.3.698 [place] .3.500578 084.8 Medica l .8 [place] 2020-11-25 2020-11-25 Orders Doctor 1.2.840.1 [id number] 85646 064 Univers 00:00:00 00:00:00 Only Unassigned, 74158.1.1 ity of [employer] 3.104.2.7 [place] .3.689688 Medica l .8 Branch 2020-11-25 2020-11-25 Telephone Devin, 1.2.840.6 [id number] 855 21699 Univers 00:00:00 00:00:00 Robbi R 50541.1.1 i ty of 3.104.2.7 [place] .3.135334 Medica l .8 Branch 2020-11-25 2020-11-25 Refill [facility], 1.2.840.6 [id number] 39393 592 Univers 00:00:00 00:00:00 Santiago 59260.1.1 ity of 3.104.2.7 [place] .3.808235 Medica l .8 Branch 2020-11-25 2020-11-25 Travel 1.2.840.1 1.2.633.918 4599 0247 Univers 00:00:00 00:00:00 34467.1.1 350.1.13.10 ity of 3.104.2.7 4.2.7.3.698 [place] .3.362240 084.8 Medica l .8 Branch 2020-11-25 2020-11-25 Orders Doctor 1.2.840.3 [id number] 43815 064 Univers 00:00:00 00:00:00 Only Unassigned, 26141.1.1 ity of [employer] 3.104.2.7 [place] .3.828428 Medica l .8 Branch 2020-11-25 2020-11-25 [facility] 1.2.670.998 6763 4592 00:00:00 00:00:00 [facility] 350.1.13.10 CLINICS 4.2.7.2.686 724.7056386 089 2020-11-25 2020-11-25 Telephone [facility] 1.2.160.239 8083 0821 00:00:00 00:00:00 Robbi Hairston [employer] 350.1.13.10 REGIONAL 4.2.7.2.686 MATERNAL 679.6100330 & CHILD [address] [place] [address] 2020-11-14 2020-11-14 Abstract Clark, 1.2.840.1 [id number] 25500 29319 Methodi 00:00:00 00:00:[address] 3.430.2.7 Hospit a .3.218288 l .8 2020-11-14 2020-11-14 Telephone Clark, 1.2.840.1 [id number] 2100 524807 Method 00:00:00 00:00:[address] 3.430.2.7 Hospit a .3.269125 l .8 2020-11-12 2020-11-12 Outpatient [facility] [id number] [facility] 08:30:00 08:30:00 SANTIAGO barbosa [facility] 2020-11-07 2020-11-07 Telephone DianaJavierAgustinaantonina [facility] 6400 1.2.840.11 4 [id number] [place] 00:00:00 00:00:[address] 350.1.13.58 Health 9.2.7.2.686 [id number] 1 2020-11-07 2020-11-07 Telephone KIMBERLEY Ortiz 6400 1.2.840.114 124 698825 00:00:00 00:00:[address] 350.1.13.58 9.2.7.2.686 704.5467728 1 2020-10-31 2020-10-31 Office HematpoKIMBERLEY hill 6400 1.2.840.114 12 [id number] [place] 07:54:00 09:45:[address] 350.1.13.58 Health 9.2.7.2.686 337.9687116 1 2020-10-30 2020-10-30 Abstract MaguireRody jasso UTP 6400 1.2.840.1 14 [id number] [place] 00:00:00 00:00:[address] 350.1.13.58 Health 9.2.7.2.686 [id number] 1 2020-10-29 2020-10-29 Refill Ronald, 1.2.840.6 [id number] 67859 400 Univers 00:00:00 00:00:00 Santiago 31215.1.1 itcharlie 3.104.2.7 [place] .3.100745 Medica l .8 [place] 2020-10-29 2020-10-29 Refill East, 1.2.840.8 [id number] 44711 400 Univers 00:00:00 00:00:00 Santiago 38410.1.1 ity of 3.104.2.7 [place] .3.253602 Medica l .8 Branch 2020-10-27 2020-10-27 Telephone Jailyn, 1.2.840.8 [id number] 21 [id number] Methodi 00:00:00 00:00:[address] 3.430.2.7 Hospit a .3.305709 l .8 2020-10-24 2020-10-24 Telephone Clark, 1.2.840.1 [id number] 2100 806087 Methodi 00:00:00 00:00:[address] 3.430.2.7 Hospit a .3.282834 l .8 2020-10-22 2020-10-22 Outpatient R SELF[facility] [id number] Univers 13:00:00 13:00[facility] 2020-10-22 2020-10-22 Travel 1.2.840.1 1.2.537.432 7048 3839 Univers 00:00:00 00:00:00 87948.1.1 350.1.13.10 ity of 3.104.2.7 4.2.7.3.698 [place] .3.921637 084.8 Medica l .8 [place] 2020-10-22 2020-10-22 Travel 1.2.840.1 1.2.986.544 1550 3839 Univers 00:00:00 00:00:00 92886.1.1 350.1.13.10 ity of 3.104.2.7 4.2.7.3.698 [place] .3.286843 084.8 Medica l .8 [place] 2020-10-13 2020-10-13 Outpatient R SELF, [facility] [id number] Univers 08:45:00 08:45:00 GADIEL ity o f [facility] 2020-10-06 2020-10-12 Telemedici [facility], 1.2.840.1 [id number] Methodi 15:30:00 00:08:46 ne Ray 40855.1.[address] 3.430.2.7 Hospit a .3.273033 l .8 2020-09-30 2020-09-30 [facility], 1.2.840.0 [id number] Methodi 00:00:00 00:00:[address] 3.430.2.7 Hospit a .3.602425 l .8 2020-09-21 2020-09-21 Travel 1.2.840.1 1.2.607.414 8381 530221 Methodi 00:00:00 00:00:[address] 3.430.2.7 0.2.7.3.698 Ho spita .3.010513 084.8 l .8 2020-09-06 2020-09-06 [facility] 1.2.840.1 [id number] 43465 93821 Methodi 17:42:30 23:59:00 Encounter [address].1.[address] 3.430.2.7 Hospit a .3.294477 l .8 2020-09-06 2020-09-06 [facility], 1.2.840.1 [id number] 2100 804104 Methodi 16:50:00 17:41:00 Encounter Ray [address]226.1.[address] 3.430.2.7 Hospit a .3.647302 l .8 2020-09-05 2020-09-05 [facility], 1.2.840.1 [id number] 2100 077006 Methodi 09:17:00 19:45:00 Encounter Ray [address]63.1.[address] 3.430.2.7 Hospit a .3.100416 l .8 2020-09-05 2020-09-05 [facility] 1.2.840.1 [id number] 21000 96637 Methodi 11:30:00 13:15:[address] 3.430.2.7 Hospit a .3.031827 l .8 2020-09-05 2020-09-05 Anesthesia Remigio, 1.2.840.1 [id number] 422 [id number] Methodi 11:27:00 12:20:00 Event Kirit 14919.1.1 243 s t V. 3.430.2.7 Hospit a .3.313929 l .8 2020-09-05 2020-09-05 Travel 1.2.840.1 1.2.123.113 6777 356233 Methodi 00:00:00 00:00:[address] 3.430.2.7 0.2.7.3.698 Ho spita .3.427239 084.8 l .8 2020-09-04 2020-09-04 Telephone Meisenbach, 1.2.840.1 [id number] Methodi 00:00:00 00:00:00 Sarai M. 10315.1.1 762 s t 3.430.2.7 Hospit a .3.534197 l .8 2020-09-02 2020-09-02 Telephone Meisenbach, 1.2.840.2 [id number] Methodi 00:00:00 00:00:00 Sarai M. 44705.1.1 344 s t 3.430.2.7 Hospit a .3.324410 l .8 2020-08-29 2020-08-30 Bedded [facility] [id number] [facility] 10:20:00 14:10:00 Outpatient r Marty 00 l [facility] 2020-08-29 2020-08-30 Outpatient HEMATPOUR, [facility] CAR 7500 [facility] 05:20:00 09:10:00 BEVERLY 2020-08-06 2020-08-06 Office [place], 1.2.840.[id number] [place] [address] 08:03:23 09:17:49 Visit Santiago 36625.1.1 ity of 3.104.2.7 [place] .3.242121 Medica l .8 [place] 2020-08-06 2020-08-06 Outpatient R EAST, [facility] [id number] Univers 08:30:00 08:30:00 SANTIAGO ity of [facility] 2020-07-14 2020-07-14 Outpatient R SELF, [facility] [id number] Univers 09:30:00 09:30:00 GADIEL barbosa o f [facility] 2020-07-14 2020-07-14 Travel 1.2.840.1 1.2.504.338 7580 2575 Univers 00:00:00 00:00:00 66858.1.1 350.1.13.10 ity of 3.104.2.7 4.2.7.3.698 [place] .3.941080 084.8 Medica l .8 [place] 2020-07-14 2020-07-14 Orders Doctor 1.2.840.3 [id number] 309 Univers 00:00:00 00:00:00 Only Unassigned, 04496.1.1 ity of [employer] 3.104.2.7 [place] .3.854288 Medica l .8 [place] 2020-06-16 2020-06-16 Outpatient R SELF, [facility] [id number] Univers 08:00:00 08:00:00 GADIEL barbosa o clark [facility] 2020-06-06 2020-06-06 Telephone Ronald, 1.2.840.6 [id number] 809 [id number] Univers 00:00:00 00:00:00 Santiago 15680.1.1 ity of 3.104.2.7 [place] .3.553330 Medica l .8 [place] 2020-06-04 2020-06-04 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 Santiago Cardenas 1.2.840.1 [id number] Univers 09:31:58 09:40:12 Visit [facility] 62071.1.1 ity of 3.104.2.7 [place] .3.117345 Medica l .8 [place] 2020-06-04 2020-06-04 Office JOSÉ ANTONIO Cardenas 1.2.659.264 4386 9729 Univers 08:13:41 09:28:25 Visit Santiago [facility] 350.1.13.10 i ty of CLINICS 4.2.7.2.[address] Richi bach 431.0206333 [facility] 089 [place] 2020-06-04 2020-06-04 Outpatient R [facility] [id number] Univers 08:30:00 08:30:00 SANTIAGO ity [facility] 2020-06-04 2020-06-04 Orders Doctor 1.2.840.0 [id number] 079 Univers 00:00:00 00:00:00 Only Unassigned, 52684.1.1 ity of [employer] 3.104.2.7 [place] .3.505879 Medica l .8 [place] 2020-05-19 2020-05-19 Telephone East, 1.2.840.9 [id number] 804 [id number] Univers 00:00:00 00:00:00 Santiago 85426.1.1 ity of 3.104.2.7 [place] .3.017770 Medica l .8 [place] 2020-04-24 2020-04-24 Telephone East, 1.2.840.3 [id number] 799 31389 Univers 00:00:00 00:00:00 Santiago 29145.1.1 ity of 3.104.2.7 [place] .3.972693 Medica l .8 [place] 2020-04-14 2020-04-14 Outpatient R [facility] [id number] Univers 09:00:00 09:00:00 SANTIAGO ity [facility] 2020-04-14 2020-04-14 Telephone East, 1.2.840.7 [id number] 797 [id number] Univers 00:00:00 00:00:00 Santiago 17168.1.1 ity of 3.104.2.7 [place] .3.739942 Medica l .8 [place] 2020-03-31 2020-03-31 Outpatient R [facility] [id number] Univers 08:30:00 08:30:00 [facility] 2020-03-03 2020-03-03 Outpatient R [facility] [id number] Univers 08:00:00 08:00:00 GADIEL ity o f [facility] 2020-03-03 2020-03-03 Outpatient Marika KOEHLER, [facility] [id number] Univers 08:00:00 08:00:00 GADIEL ity o f [facility] 2020-03-03 2020-03-03 Travel 1.2.840.1 1.2.276.157 1332 5480 Univers 00:00:00 00:00:00 50851.1.1 350.1.13.10 ity of 3.104.2.7 4.2.7.3.698 [place] .3.141142 084.8 Medica l .8 [place] 2020-02-06 2020-02-06 Telephone East, 1.2.840.5 [id number] 781 14791 Univers 00:00:00 00:00:00 Santiago 21098.1.1 ity of 3.104.2.7 [place] .3.400999 Medica l .8 Branch 2020-01-26 2020-01-26 Emergency Caridad, 1.2.840.9 [id number] 779 31139 Univers 10:03:00 13:05:00 Cynise 42172.1.1 ity of 3.104.2.7 [place] .3.002774 Medica l .8 Branch 2020-01-26 2020-01-26 Travel 1.2.840.1 1.2.783.186 2297 0120 Univers 00:00:00 00:00:00 05430.1.1 350.1.13.10 ity of 3.104.2.7 4.2.7.3.698 [place] .3.122696 084.8 Medica l .8 [place] 2020-01-25 2020-01-25 Outpatient Marika RONALD, [facility] [id number] Univers 08:30:00 08:30:00 SANTIAGO ity of [facility] 2020-01-25 2020-01-25 Telemedici [place], 1.2.840.2 [id number] Univers 07:36:49 08:06:49 ne Visit Santiago 49068.1.1 ity of 3.104.2.7 [place] .3.478322 Medica l .8 [place] 2020-01-16 2020-01-16 Outpatient R EAST, [facility] [id number] Univers 08:00:00 08:00:00 SANTIAGO barbosa [facility] 2020-01-16 2020-01-16 Telephone East, 1.2.840.2 [id number] Univers 00:00:00 00:00:00 Santiago 80777.1.1 ity of 3.104.2.7 [place] .3.702378 Medica l .8 [place] 2020-01-14 2020-01-14 Outpatient R SELF, [facility] [id number] Univers 08:00:00 08:00:00 GADIEL rodas [facility] 2019-12-31 2019-12-31 Outpatient R SELF, [facility] [id number] Univers 08:45:00 08:45:00 GADIEL rodas [facility] 2019-10-17 2019-10-17 Outpatient R EAST, [facility] [id number] Univers 08:30:00 08:30:00 SANTIAGO barbosa [facility] 2019-10-12 2019-10-12 Outpatient R EAST, [facility] [id number] Univers 13:00:00 13:00:00 SANTIAGO barbosa [facility] 2019-10-12 2019-10-12 Telemedici [place], 1.2.840.9 [id number] Univers 07:38:30 08:08:30 ne Visit Santiago 25513.1.1 ity of 3.104.2.7 [place] .3.449005 Medica l .[address] [place] [address] 2019-10-08 2019-10-08 Outpatient R SELF, [facility] [id number] Univers 10:15:00 10:15:00 GADIEL rodas [facility] 2019-10-03 2019-10-03 Case Assman, 1.2.840.6 [id number] Univers 00:00:00 00:00:00 Management Michael Corbin 01955.1.1 i ty of 3.104.2.7 [place] .3.037659 Medica l .8 [place] 2019-09-27 2019-09-27 Telephone East, 1.2.840.1 [id number] 755 [id number] Univers 00:00:00 00:00:00 Santiago 66252.1.1 ity of 3.104.2.7 [place] .3.227099 Medica l .8 [place] 2019-09-04 2019-09-04 Refill East, 1.2.840.0 [id number] 497 Univers 00:00:00 00:00:00 Santiago 47710.1.1 ity of 3.104.2.7 [place] .3.235481 Medica l .8 [place] 2019-07-24 2019-07-24 Outpatient R EAST, [facility] [id number] Univers 08:30:00 08:30:00 SANTIAGO ity [facility] 2019-07-17 2019-07-17 Outpatient R EAST, [facility] [id number] Univers 10:00:00 10:00:00 SANTIAGO ity [facility] 2019-06-15 2019-06-15 Telephone East, 1.2.840.1 [id number] [id number] Univers 00:00:00 00:00:00 Santiago 41684.1.1 ity of 3.104.2.7 [place] .3.522818 Medica l .8 [place] 2019-06-13 2019-06-13 Telephone Team, [facility] 1.2.840.5 [id number] Univers 00:00:00 00:00:00 Health 99575.1.1 ity of [place] 3.104.2.7 [place] .3.209700 Medica l .8 [place] 2019-05-10 2019-05-10 Refill East, 1.2.840.6 [id number] Univers 00:00:00 00:00:00 Santiago 63209.1.1 ity of 3.104.2.7 [place] .3.079749 Medica l .8 [place] 2019-05-09 2019-05-09 Refill East, 1.2.840.8 [id number] Univers 00:00:00 00:00:00 Santiago 48099.1.1 ity of 3.104.2.7 [place] .3.402325 Medica l .8 [place] 2019-04-30 2019-04-30 Outpatient R SELF, [facility] [id number] Univers 10:15:00 10:33:05 GADIEL macielcharlie o f [facility] 2019-04-18 2019-04-18 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 Santiago Cardenas 1.2.840.1 [id number] Univers 10:00:39 10:44:31 Visit [facility] 63211.1.1 ity of 3.104.2.7 [place] .3.752308 Medica l .8 [place] 2019-04-18 2019-04-18 Outpatient R RONALD, [facility] [id number] Univers 10:00:00 10:44:31 SANTIAGO ity of [facility] 2019-04-18 2019-04-18 Office Ronald, 1.2.840.9 [id number] 02521 005 Univers 08:27:44 09:53:27 Visit Santiago 05762.1.1 ity of 3.104.2.7 [place] .3.048516 Medica l .[address] [place] [address] 2019-04-18 2019-04-18 Orders Doctor 1.2.840.4 [id number] Univers 00:00:00 00:00:00 Only Unassigned, 06869.1.1 ity of [employer] 3.104.2.7 [place] .3.219792 Medica l .8 [place] 2019-04-11 2019-04-11 Refill Ronald, 1.2.840.6 [id number] [facility] 00:00:00 00:00:00 [place] 06787.1.1 ity of 3.104.2.7 [place] .3.496697 Medica l .8 [place] 2019-04-09 2019-04-09 Refill Ronald, 1.2.840.3 [id number] Univers 00:00:00 00:00:00 Santiago 85520.1.1 ity of 3.104.2.7 [place] .3.344733 Medica l .8 [place] 2019-04-03 2019-04-03 Telephone Team, [facility] 1.2.840.6 [id number] Univers 00:00:00 00:00:00 Health 83631.1.1 [place]y [place] .3.171650 Medica l .8 Branch 2019-03-27 2019-03-27 Telephone Self, 1.2.840.8 [id number] Univers 00:00:00 00:00:00 Gadiel 43541.1.1 ity of 3.104.2.7 [place] .3.581493 Medica l .8 Branch 2019-01-17 2019-01-17 Office [place], 1.2.840.8 [id number] Univers 07:37:21 10:32:51 Visit Santiago 45659.1.1 ity of 3.104.2.7 [place] .3.268536 Medica l .8 Branch 2019-01-04 2019-01-12 Office Eveline Hansen 1.2.840.1 [id number] Univers 11:19:32 11:08:05 Visit Mariela 50737.1.1 ity of 3.104.2.7 [place] .3.010717 Medica l .8 Branch 2019-01-10 2019-01-10 Telephone Stanislav, 1.2.840.0 [id number] Univers 00:00:00 00:00:00 Eladio Inman 10660.1.1 ity of 3.104.2.7 [place] .3.089450 Medica l .8 Branch 2018-12-18 2018-12-18 Office Alexisryan, 1.2.840.9 [id number] Univers 08:48:45 09:13:43 Visit Leyda 69362.1.1 it y of 3.104.2.7 [place] .3.385198 Medica l .8 Branch 2018-10-30 2018-10-30 Telephone Ronald, 1.2.840.6 [id number] Univers 00:00:00 00:00:00 Santiago 59009.1.1 ity of 3.104.2.7 [place] .3.257683 Medica l .8 Branch 2018-10-23 2018-10-23 Orders Doctor 1.2.840.0 [id number] [facility] 00:00:00 00:00:00 Only Unassigned, 42314.1.1 ity of [employer] 3.104.2.7 [place] .3.672214 Medica l .8 Branch 2018-10-23 2018-10-23 Nurse Selvin, 1.2.840.3 [id number] Univers 00:00:00 00:00:00 Triage Stefanie 27451.1.1 ity of 3.104.2.7 [place] .3.083381 Medica l .8 Branch 2018-10-23 2018-10-23 Telephone Self, 1.2.840.5 [id number] Univers 00:00:00 00:00:00 Gadiel 30159.1.1 ity of 3.104.2.7 [place] .3.950698 Medica l .8 [place] 2018-10-20 2018-10-20 Telephone Self, 1.2.840.5 [id number] Univers 00:00:00 00:00:00 Gadiel 11942.1.1 ity of 3.104.2.7 [place] .3.450049 Medica l .8 [place] Results Test Description Test Time Test Comments Results Result Comments Source BASIC METABOLIC PANEL (NA, K, CL, CO2, GLUCOSE, BUN, 2022-04 21:43:42 CREATININE, CA) Test Item Value Reference Range Interpretation Comme nts NA (test code = 9919146469) 142 mmol/L 135-145 K (test code = 9143677690) 3.5 mmol/L 3.5-5.0 CL (test code = 9934770803) 106 mmol/L 98-108 CO2 TOTAL (test code = 6945087413) 26 mmol/L 23-31 AGAP (test code = 0077818485) 2-16 BUN (test code = 9485962451) 29 mg/dL 7-23 H GLUCOSE (test code = 3968157710) 84 mg/dL 70-110 CREATININE (test code = 1.16 mg/dL 0.50-1.04 H 8834921062) CALCIUM (test code = 8394557185) 8.2 mg/dL 8.6-10.6 L eGFR (test code = 5591758672) mL/min/1.73m2 KYLE (test code = KYLE) Association [...] tests). Lab Interpretation (test code = Abnormal 99784-4) [facility] WITH [id number] 21:33:01 Test Item Value Reference Range Interpretation Comments WBC (test code = See_Comment [Automated 6678-2) message] The sy stem which generated this result transmitted reference range : 4.30 - 11.10 10*3/?L. The reference range was not used to interpret this result as normal/abnormal . RBC (test code = See_Comment L [Automated 374-8) message] The sy stem which generated this [...] (test code = 50.7 fL 39.0-49.9 H 75922-3) RDW-CV (test code = 14.6 % 12.0-15.5 788-0) PLT (test code = See_Comment L [Automated 777-3) message] The sy stem which generated this result transmitted reference range : 166 - 358 10*3/ ?L. The reference r abbey was not used to interpret this result as normal/abnormal . MPV (test code = 8.8 fL 9.5-12.9 L 15065-4) NRBC/100 WBC (test See_Comment [Automat ed code = 2193766927) message] The system which generated this result transmitted reference range : 0.0 - 10.0 /100 WBCs. The refer ence range was not u sed to interpret th is result as normal/abnormal . NRBC x10^3 (test code See_Comment [Auto mated = 4193802705) message] The s ystem which generated this result transmitted reference range : 10*3/?L. The reference range was not used to interpret this result as normal/abnormal . GRAN MAT (NEUT) % 70.9 % (test code = 770-8) IMM GRAN % (test code 0.50 % = 5434690198) LYMPH % (test code = 17.4 % 736-9) MONO % (test code = 9.0 % 5905-5) EOS % (test code = 1.7 % 713-8) BASO % (test code = 0.5 % 706-2) GRAN MAT x10^3(ANC) 4.60 10*3/uL 1.88-7.09 (test code = 2588155699) IMM GRAN x10^3 (test 0.03 10*3/uL 0.00-0.06 code = 4452845616) LYMPH x10^3 (test code 1.13 10*3/uL 1.32-3.29 L = 731-0) MONO x10^3 (test code 0.58 10*3/uL 0.33-0.92 = 742-7) EOS x10^3 (test code = 0.11 10*3/uL 0.03-0.39 711-2) BASO x10^3 (test code 0.03 10*3/uL 0.01-0.07 = 704-7) Lab Interpretation Abnormal (test code = 67884-4) [facility] CULTURE [id number] 06:01:07 Test Item Value Reference Range Interpretation Comments Blood Culture-Aerobic No organisms No growth Previo us (test code = 24725-9) isolated prelim inary verified result was Culture [...] Culture-Anaerobic isolated preliminar y (test code = 63509-2) verifi ed result was Culture In Progress [...] CDT Lab Interpretation Normal (test code = 36049-1) [facility] CULTURE [id number] 06:01:07 Test Item Value Reference Range Interpretation Comments Blood Culture-Aerobic No organisms No growth Previo us (test code = 80475-1) isolated prelim inary verified result was Culture [...] Culture-Anaerobic isolated preliminar y (test code = 84344-5) verifi ed result was Culture In Progress [...] CDT Lab Interpretation Normal (test code = 33136-6) [facility] [id number] 06:01:07 Test Item Value Reference Range Interpretation Comments Blood Culture-Aerobic No organisms No growth Previo us (test code = 27550-8) isolated prelim inary verified result was Culture [...] Culture-Anaerobic isolated preliminar y (test code = 84022-6) verifi ed result was Culture In Progress [...] CDT Lab Interpretation Normal (test code = 06553-7) [facility] [id number] 10:49:10 Test Item Value Reference Range Interpretation Comments NT-proBNP (test code 2660 pg/mL See_Comment H [Autom ated = 6463456382) message] The system which generated this result transmitted reference range : <=125. The reference range was not used to interpret this result as normal/abnormal . KYLE (test code = KYLE) Biotin has been reported to cause a negative bias, interpret results relative to patient's use of biotin. Lab Interpretation Abnormal (test code = 94912-7) [facility] [id number] 10:49:10 Test Item Value Reference Range Interpretation Comments NT-proBNP (test code 2660 pg/mL See_Comment H [Autom ated = 5536886679) message] The system which generated this result transmitted reference range : <=125. The reference range was not used to interpret this result as normal/abnormal . KYLE (test code = KYLE) Biotin has been reported to cause a negative bias, interpret results relative to patient's use of biotin. Lab Interpretation Abnormal (test code = 58482-8) [facility] (NA, K, CL, CO2, GLUCOSE, BUN, CREATININE, CA)2022-02-15 10:44:07 Test Item Value Reference Range Interpretation Comments NA (test code = 134 mmol/L 135-145 L 8636366476) K (test code = 3.2 mmol/L 3.5-5 L 2082455605) CL (test code = 98 mmol/L 98-108 4108933738) CO2 TOTAL (test code = 27 mmol/L 23-31 1522037377) AGAP (test code = 2-16 9229750170) BUN (test code = 19 mg/dL 7-23 9634133935) GLUCOSE (test code = 102 mg/dL 70-110 8407618803) CREATININE (test code = 0.95 mg/dL 0.5-1.04 4392964839) CALCIUM (test code = 8.5 mg/dL 8.6-10.6 L 8326262014) eGFR (test code = mL/min/1.73m2 3552722797) KYLE (test code = KYLE) Association of [...] tests). Lab Interpretation Abnormal (test code = 13436-0) [facility]2022[facility]26 10:44:07 Test Item Value Reference Range Interpretation Comments MAGNESIUM (test code = 7013446995) 1.8 mg/dL 1.7-2.4 Lab Interpretation (test code = Normal 54001-9) [facility]07 Test Item Value Reference Range Interpretation Comments MAGNESIUM (test code = 5639098325) 1.8 mg/dL 1.7-2.4 Lab Interpretation (test code = Normal 62098-0) [facility] (NA, K, CL, CO2, GLUCOSE, BUN, CREATININE, CA)2022-02-15 10:44:07 Test Item Value Reference Range Interpretation Comments NA (test code = 134 mmol/L 135-145 L 3609876766) K (test code = 3.2 mmol/L 3.5-5.0 L 7744198768) CL (test code = 98 mmol/L 98-108 2188873622) CO2 TOTAL (test code = 27 mmol/L 23-31 9415668970) AGAP (test code = 2-16 8377482691) BUN (test code = 19 mg/dL 7-23 5766816234) GLUCOSE (test code = 102 mg/dL 70-110 0884614918) CREATININE (test code = 0.95 mg/dL 0.50-1.04 6035263506) CALCIUM (test code = 8.5 mg/dL 8.6-10.6 L 6125062275) eGFR (test code = mL/min/1.73m2 1881702975) KYLE (test code = KYLE) Association of [...] tests). Lab Interpretation Abnormal (test code = 22810-7) [facility] WITH [id number] 10:12:06 Test Item Value Reference Range Interpretation [...] RDW-SD (test code = 47.8 fL 39-49.9 47176-0) RDW-CV (test code = 15.2 % 12-15.5 788-0) PLT (test code = See_Comment L [Automated 777-3) message] The sy stem which generated this result transmitted reference range : 166 - 358 10*3/ ?L. The reference r abbey was not used to interpret this result as normal/abnormal . MPV (test code = 8.9 fL 9.5-12.9 L 52905-3) NRBC/100 WBC (test See_Comment [Automat ed code = 2407646315) message] The system which generated this result transmitted reference range : 0.0 - 10.0 /100 WBCs. The refer ence range was not u sed to interpret th is result as normal/abnormal . NRBC x10^3 (test code See_Comment [Auto mated = 3043499534) message] The s ystem which generated this result transmitted reference range : 10*3/?L. The reference range was not used to interpret this result as normal/abnormal . GRAN MAT (NEUT) % 65.9 % (test code = 770-8) IMM GRAN % (test code 0.30 % = 3142751205) LYMPH % (test code = 21.0 % 736-9) MONO % (test code = 10.1 % 5905-5) EOS % (test code = 2.4 % 713-8) BASO % (test code = 0.3 % 706-2) GRAN MAT x10^3(ANC) 2.49 10*3/uL 1.88-7.09 (test code = 7965930428) IMM GRAN x10^3 (test 0-0.06 code = 8900925935) LYMPH x10^3 (test code 0.79 10*3/uL 1.32-3.29 L = 731-0) MONO x10^3 (test code 0.38 10*3/uL 0.33-0.92 = 742-7) EOS x10^3 (test code = 0.09 10*3/uL 0.03-0.39 711-2) BASO x10^3 (test code 0.01-0.07 = 704-7) Lab Interpretation Abnormal (test code = 79122-9) [facility] WITH [id number] 10:12:06 Test Item Value Reference Range Interpretation [...] RDW-SD (test code = 47.8 fL 39.0-49.9 42482-8) RDW-CV (test code = 15.2 % 12.0-15.5 788-0) PLT (test code = See_Comment L [Automated 777-3) message] The sy stem which generated this result transmitted reference range : 166 - 358 10*3/ ?L. The reference r abbey was not used to interpret this result as normal/abnormal . MPV (test code = 8.9 fL 9.5-12.9 L 19283-6) NRBC/100 WBC (test See_Comment [Automat ed code = 1949642967) message] The system which generated this result transmitted reference range : 0.0 - 10.0 /100 WBCs. The refer ence range was not u sed to interpret th is result as normal/abnormal . NRBC x10^3 (test code See_Comment [Auto mated = 2575709716) message] The s ystem which generated this result transmitted reference range : 10*3/?L. The reference range was not used to interpret this result as normal/abnormal . GRAN MAT (NEUT) % 65.9 % (test code = 770-8) IMM GRAN % (test code 0.30 % = 5451601436) LYMPH % (test code = 21.0 % 736-9) MONO % (test code = 10.1 % 5905-5) EOS % (test code = 2.4 % 713-8) BASO % (test code = 0.3 % 706-2) GRAN MAT x10^3(ANC) 2.49 10*3/uL 1.88-7.09 (test code = 9510857414) IMM GRAN x10^3 (test 0.00-0.06 code = 7769627258) LYMPH x10^3 (test code 0.79 10*3/uL 1.32-3.29 L = 731-0) MONO x10^3 (test code 0.38 10*3/uL 0.33-0.92 = 742-7) EOS x10^3 (test code = 0.09 10*3/uL 0.03-0.39 711-2) BASO x10^3 (test code 0.01-0.07 = 704-7) Lab Interpretation Abnormal (test code = 44180-3) [facility] WITH [id number] 11:18:28 Test Item Value Reference Range Interpretation [...] RDW-SD (test code = 49.5 fL 39-49.9 77330-3) RDW-CV (test code = 15.5 % 12-15.5 788-0) PLT (test code = See_Comment L [Automated 777-3) message] The sy stem which generated this result transmitted reference range : 166 - 358 10*3/ ?L. The reference r abbey was not used to interpret this result as normal/abnormal . MPV (test code = 11.4 fL 9.5-12.9 06197-8) IPF % (test code = 8.7 % 1.3-7.7 H Platelet count 9295210074) measured by fluorescence method. NRBC/100 WBC (test See_Comment [Automat ed code = 5818473439) message] The system which generated this result transmitted reference range : 0.0 - 10.0 /100 WBCs. The refer ence range was not u sed to interpret th is result as normal/abnormal . NRBC x10^3 (test code See_Comment [Auto mated = 0366254037) message] The s ystem which generated this result transmitted reference range : 10*3/?L. The reference range was not used to interpret this result as normal/abnormal . GRAN MAT (NEUT) % 62.0 % (test code = 770-8) IMM GRAN % (test code 0.80 % = 6759814392) LYMPH % (test code = 22.2 % 736-9) MONO % (test code = 9.6 % 5905-5) EOS % (test code = 5.1 % 713-8) BASO % (test code = 0.3 % 706-2) GRAN MAT x10^3(ANC) 2.21 10*3/uL 1.88-7.09 (test code = 9232328849) IMM GRAN x10^3 (test 0.03 10*3/uL 0-0.06 code = 4096708760) LYMPH x10^3 (test code 0.79 10*3/uL 1.32-3.29 L = 731-0) MONO x10^3 (test code 0.34 10*3/uL 0.33-0.92 = 742-7) EOS x10^3 (test code = 0.18 10*3/uL 0.03-0.39 711-2) BASO x10^3 (test code 0.01-0.07 = 704-7) POLYCHROMASIA (test 2+ See_Comment [Automa arpit code = 59947-5) message] The system which generated this result [...] . Lab Interpretation Abnormal (test code = 34147-2) [facility] (NA, K, CL, CO2, GLUCOSE, BUN, CREATININE, CA)2022-02-13 10:39:07 Test Item Value Reference Range Interpretation Comments NA (test code = 136 mmol/L 135-145 3361184212) K (test code = 4.1 mmol/L 3.5-5 4973229724) CL (test code = 102 mmol/L 98-108 5509148398) CO2 TOTAL (test code = 27 mmol/L 23-31 0234047941) AGAP (test code = 2-16 5394680069) BUN (test code = 22 mg/dL 7-23 3148197822) GLUCOSE (test code = 94 mg/dL 70-110 4809257002) CREATININE (test code = 0.94 mg/dL 0.5-1.04 1013505907) CALCIUM (test code = 8.1 mg/dL 8.6-10.6 L 6519648833) eGFR (test code = mL/min/1.73m2 4054657583) KYLE (test code = KYLE) Association of [...] tests). Lab Interpretation Abnormal (test code = 01720-5) [facility]2022-02-12 01:50:10 Test Item Value Reference Range Interpretation Comments Height (test code = in 5838912320) Weight (test code = lbs 0476536916) Systolic BP (test code mmHg = 0132444660) Diastolic BP (test code mmHg = 1102944915) Heart Rate (test code = bpm 1766148481) BSA (test code = 1.85 m2 4358355299) IVS (test code = 1.22 cm 9751001160) Interventricular Septum 1.22 cm Diastolic Thickness by 2D (test code = 0660017) LVIDD (test code = 5.00 cm 7997372550) Left Ventricular End 117.9 mL Diastolic Volume by Teichholz Method (test code = 1581629) LVPWD (test code = 1.22 cm 6421292376) PW (test code = 1.22 cm 0.6-1.8 7002383998) EF(Teich) (test code = 74.60 % 1884638626) LVIDS (test code = 2.80 cm 2952580220) Left Ventricular End 29.9 mL Systolic Volume by Teichholz Method (test code = 7725797) FS (test code = 44 % 0205088586) EF - 2D (test code = 74.60 % 69436320) LVOT diameter (test 2.16 cm code = 7357899342) LVOT area (test code = 3.70 cm2 5372964864) Ao root diam (test code 3.40 cm = 6390881487) Aortic root (test code 3.4 cm = 1315361711) Ao root annulus (test 3.4 cm code = 0571993167) LA size (test code = 3.4 cm 8177173618) TR Peak Spencer (test code 330.0 cm/s = 9358332226) Triscuspid Valve mmHg Regurgitation Peak Gradient (test code = 5472515331) PV REGURGITATION PEAK mmHg GRADIENT (test code = 4197456732) PI dec slope (test code 137.20 cm/s2 = 9512200950) LAV(MOD-sp4) (test code 102.90 mL = 9516668932) MV Peak E Spencer (test 84.1 cm/s code = 1917328981) MV Peak A Spencer (test 40.1 cm/s code = 6126988810) E/A ratio (test code = ratio 9217889183) MV valve area p 1/2 3.70 cm2 method (test code = 4010021283) MV dec slope (test code 413.00 cm/s2 = 5365563123) MV P1/2t max spencer (test 83.70 cm/s code = 7172707538) MV Prop V (test code = 41.80 cm/s 9003866848) Tapse (test code = 1.83 cm 4153282660) LVOT stroke volume 96.90 cm3 (test code = 9138635226) LVOT peak spencer (test 125.5 cm/s code = 9845338864) LVOT mn grad (test code mmHg = 5637591468) AV LVOT peak gradient mmHg (test code = 1855028110) LVOT peak VTI (test 26.4 cm code = 8689354267) LV V1 mean (test code = 78.10 cm/s 1183247967) Aortic valve mean 103.7 cm/s velocity (test code = 5453049240) Ao peak spencer (test code 165.6 cm/s = 4507137876) Ao VTI (test code = 37.2 cm 3774335100) AV area by cont VTI 2.6 cm2 (test code = 3342539576) AV area peak spencer (test 2.8 cm2 code = 5200578487) Ao max PG (test code = 11.00 mm[Hg] 2848357107) AV peak gradient (test mmHg code = 9149666092) AV valve area (test 2.60 cm2 code = 5112354308) AV mean gradient (test mmHg code = 1689765622) LA Volume Index (BP) 55.2 mL/m2 (test code = 8504288003) LA volume (BP) (test 102.1 mL code = 3180184541) LAV(MOD-sp2) (test code 86.10 mL = 7735561732) A2C EF (test code = 61.20 % 9560963138) EF(sp2-el) (test code = 61.60 % 8846258047) SV(MOD-sp2) (test code 47.10 mL = 9367670083) LV Diastolic Volume 70.7 mL (BP) (test code = 6994344630) A4C EF (test code = 53.00 % 1523531374) EF(MOD-bp) (test code = 56.70 % 2762985028) EF(sp4-el) (test code = 53.90 % 9751474787) LV Systolic Volume (BP) 30.6 mL (test code = 9888194931) SV(MOD-bp) (test code = 40.10 mL 2030816409) SV(MOD-sp4) (test code 32.40 mL = 5861040575) SV(sp4-el) (test code = 33.10 mL 7960522852) EF (test code = 5848112124) Left Ventricular Stroke 40.1 mL Volume by 2-D Biplane-MOD (test code = 2288351) LV Diastolic Volume 38.2 mL/m2 Index (BP) (test code = 5131658602) LV Systolic Volume 16.5 mL/m2 Index (BP) (test code = 9646102689) Radiology Study observation (narrative) (test code = 71726-8) KYLE (test code = KYLE) ?Left?Ventricle: Left [...] 1.00The left ventricular wall motion is normal. [facility] [id number] 05:45:01 Test Item Value Reference Interpretation Comments Range TROPONIN I (test See_Comment [Automated code = 0511790222) message] The system which generated this result [...] biotin. Lab Interpretation Normal (test code = 56341-1) [facility] [id number] 05:41:40 Test Item Value Reference Range Interpretation Comments NT-proBNP (test code 4250 pg/mL See_Comment H [Autom ated = 6764503001) message] The system which generated this result transmitted reference range : <=125. The reference range was not used to interpret this result as normal/abnormal . KYLE (test code = KYLE) Biotin has been reported to cause a negative bias, interpret results relative to patient's use of biotin. Lab Interpretation Abnormal (test code = 51095-4) [facility] THRM[facility]AS [id number] 05:35:21 Test Item Value Reference Range Interpretation Comments APTT Patient (test See_Comment [Automat ed code = 3173-2) message] The system which generated this result transmitted reference range : 23 - 38 Seconds . The reference range was not used to interpr et this result as normal/abnormal . KYLE (test code = KYLE) The [facility] patient population mean normal value for aPTT is 30 seconds. Lab Interpretation Normal (test code = 53153-1) [facility] [id number] 05:35:21 Test Item Value Reference Range Interpretation Comments APTT Patient (test See_Comment [Automat ed code = 3173-2) message] The system which generated this result transmitted reference range : 23 - 38 Seconds . The reference range was not used to interpr et this result as normal/abnormal . KYLE (test code = KYLE) The [facility] patient population mean normal value for aPTT is 30 seconds. Lab Interpretation Normal (test code = 12719-8) [facility]HROMBIN TIME / [id number] 05:33:21 Test Item Value Reference Range Interpretation [...] tions. Lab Interpretation (test Normal code = 84646-8) [facility] METABOLIC PANEL (16256)2022-02-11 05:33:21 Test Item Value Reference Range Interpretation Comments NA (test code = 137 mmol/L 135-145 4537052325) K (test code = 4.3 mmol/L 3.5-5 1546928547) CL (test code = 103 mmol/L 98-108 0444958750) CO2 TOTAL (test code = 25 mmol/L 23-31 7839706639) AGAP (test code = 2-16 9226065749) BUN (test code = 19 mg/dL 7-23 1474644592) GLUCOSE (test code = 120 mg/dL 70-110 H 4895368196) CREATININE (test code = 1.15 mg/dL 0.5-1.04 H 1878385670) TOTAL BILI (test code = 0.9 mg/dL 0.1-1.7 4269809647) CALCIUM (test code = 8.9 mg/dL 8.6-10.6 0446333748) T PROTEIN (test code = 6.6 g/dL 6.3-8.2 8183442206) ALBUMIN (test code = 4.0 g/dL 3.5-5 4852102273) ALK PHOS (test code = 73 U/L 34-122 9372008414) ALTv (test code = 18 U/L 5-35 1742-6) AST(SGOT) (test code = 31 U/L 13-40 6370229459) eGFR (test code = mL/min/1.73m2 2473036812) KYLE (test code = KYLE) Association of [...] tests). Lab Interpretation Abnormal (test code = 68777-3) [facility] METABOLIC PANEL (74514)2022-02-11 05:33:21 Test Item Value Reference Range Interpretation Comments NA (test code = 137 mmol/L 135-145 5893085646) K (test code = 4.3 mmol/L 3.5-5.0 9951730484) CL (test code = 103 mmol/L 98-108 4226833186) CO2 TOTAL (test code = 25 mmol/L 23-31 7507655461) AGAP (test code = 2-16 4007270547) BUN (test code = 19 mg/dL 7-23 1964009217) GLUCOSE (test code = 120 mg/dL 70-110 H 4830815859) CREATININE (test code = 1.15 mg/dL 0.50-1.04 H 3866773522) TOTAL BILI (test code = 0.9 mg/dL 0.1-1.0 3165886759) CALCIUM (test code = 8.9 mg/dL 8.6-10.6 7100510064) T PROTEIN (test code = 6.6 g/dL 6.3-8.2 8395881806) ALBUMIN (test code = 4.0 g/dL 3.5-5.0 0117843235) ALK PHOS (test code = 73 U/L 34-122 1435083266) ALTv (test code = 18 U/L 5-35 1742-6) AST(SGOT) (test code = 31 U/L 13-40 0060247072) eGFR (test code = mL/min/1.73m2 3964314401) KYLE (test code = KYLE) Association of [...] tests). Lab Interpretation Abnormal (test code = 47817-6) [facility]HROM[facility] TIME / [id number] 05:33:21 Test Item Value Reference Range Interpretation Comments PROTIME PATIENT (test See_Comment [Auto mated message] code = 5964-2) The system [employer] ich generated this result transmitted ref erence range: 12.0 - 1 4.7 Seconds. The re ference range was not u sed to interpret this result as normal/abnor mal. INR (test code = 6301-6) Nor mal INR <1.1; Warfarin Therap eutic range 2.0 to 3. 0 or 2.5 to 3.5, dep ending upon the indica tions. Lab Interpretation (test Normal code = 65786-4) [facility] WITH [id number] 05:14:37 Test Item Value Reference Range Interpretation Comments WBC (test code = See_Comment [Automated 5066-2) message] The sy stem which generated this result transmitted reference range : 4.30 - 11.10 10*3/?L. The reference range was not used to interpret this result as normal/abnormal . RBC (test code = See_Comment L [Automated 649-8) message] The sy stem which generated this [...] RDW-SD (test code = 47.9 fL 39-49.9 70733-9) RDW-CV (test code = 14.9 % 12-15.5 788-0) PLT (test code = See_Comment L [Automated 777-3) message] The sy stem which generated this result transmitted reference range : 166 - 358 10*3/ ?L. The reference r abbey was not used to interpret this result as normal/abnormal . MPV (test code = 9.1 fL 9.5-12.9 L 93871-6) NRBC/100 WBC (test See_Comment [Automat ed code = 0649033511) message] The system which generated this result transmitted reference range : 0.0 - 10.0 /100 WBCs. The refer ence range was not u sed to interpret th is result as normal/abnormal . NRBC x10^3 (test code See_Comment [Auto mated = 0928624148) message] The s ystem which generated this result transmitted reference range : 10*3/?L. The reference range was not used to interpret this result as normal/abnormal . GRAN MAT (NEUT) % 78.5 % (test code = 770-8) IMM GRAN % (test code 0.20 % = 2283536072) LYMPH % (test code = 11.6 % 736-9) MONO % (test code = 8.4 % 5905-5) EOS % (test code = 1.1 % 713-8) BASO % (test code = 0.2 % 706-2) GRAN MAT x10^3(ANC) 3.45 10*3/uL 1.88-7.09 (test code = 3309865543) IMM GRAN x10^3 (test 0-0.06 code = 7128510490) LYMPH x10^3 (test code 0.51 10*3/uL 1.32-3.29 L = 731-0) MONO x10^3 (test code 0.37 10*3/uL 0.33-0.92 = 742-7) EOS x10^3 (test code = 0.05 10*3/uL 0.03-0.39 711-2) BASO x10^3 (test code 0.01-0.07 = 704-7) Lab Interpretation Abnormal (test code = 45274-3) [facility] Coronavirus 2019 [id number] 18:08:00 Test Item Value Reference Range Interpretation [...] det ection of nucleic acids f rom prmEWSP-GoU-1 v irus and diagnosis of SA RS-CoV-2 virusinfection. It is an Emergency Use Authorization ( EUA) testauthorized by the U.S. FDA. BASIC METABOLIC [id number] 09:37:00 Test Item Value Reference Range Interpretation [...] = 9.0 mg/dL 8.0-10.5 N CA) PROTHROMBIN [id number] 09:32:00 Test Item Value Reference Range Interpretation [...] (to prevent recurrent infar ct). 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 [facility] - XR CHEST 1 [id number] 00:00:00 [facility] 1955 Sex: F FAX: RobinJasmeetUrmilalinda Danielankristen Peterson DO [phone] [place]: St: ADM FAX: Mike Scales MD [phone] FAX: Bahman Chopra [phone] Name: LIO WATTS [facility] : 1955 Age/S: 66/F [address] [place] [address] Unit #: [id number] Loc: [place] [address] Phys: Bahman Chopra [facility] Acct: [id number] Dis Date: Status: ADM IN PHONE #: [phone] Exam Date: 06/17/2021 1320 FAX #: [phone] Reason: WATCHMAN EXAMS: CPT CODE: [id number] XR CHEST 1 V 89063 PROCEDURE INFORMATION: Exam: XR Chest Exam date [...] Chopra Technologist: RT Taylor(R) Trnbob Date/Time/By: 06/17/2021 (0965) : By: Susanna Orig Print D/T: S: 06/17/2021 (3374) PAGE 1 Signed ReportCOVID 19 Asymptomatic IH [...] high or waivedcomplexit y tests. BASIC METABOLIC [id number] 11:37:00 Test Item Value Reference Range Interpretation [...] code = 9.0 mg/dL 8.0-10.5 N CA) [id number] 11:37:00 Test Item Value Reference Range Interpretation Comments PREALBUMIN (test code = PREALB) 24.3 mg/dL 16.0-40.0 N PROTHROMBIN [id number] 11:03:00 Test Item Value Reference Range Interpretation [...] (to prevent recurrent infar ct). CBC W/AUTO [id number] 10:59:00 Test Item Value Reference Range Interpretation [...] 3/uL 0.0-0.1 N NRBC#) - CHEST 2 [id number] 00:00:00 [facility] 1955 Sex: F FAX: Carmenza Kelly DO [phone] [place]: St: PRE FAX: Mike Scales MD [phone] Name: LIO WATTS [facility] [place] : 1955 Age/S: 66/F [address] [place] [address] Unit #: [id number] Loc: [place], [place] [address]Sqwb: Mike Lund MD Acct: [id number] Dis Date: Status: PRE SDC PHONE #: [phone] Exam Date: 06/16/2021 1120 FAX #: [phone] Reason: PREOP EXAMS: CPT CODE: [id number] XR CHEST 2 V 98175 PROCEDURE INFORMATION: Exam: XR Chest Exam date [...] Technologist: Danielle Nix RT(R) Trnscrd Date/Time/By: 06/16/2021 (2278) : By: [email or web address] Orig Print D/T: S: 06/16/2021 (6508) PAGE 1 Signed ReportGastrointestinal [id number] 04:35:05 Test Item Value Reference Interpretation Comments [...] Rotavirus PCR (test Not Detected code = 6807606) Salmonella PCR (test Not Detected code = [...] PCR Not Detected (test code = 7124) [facility] [id number] 19:30:47 Test Item Value Reference Range Interpretation Comments Case number (test [id number] code = [id number]) Surgical pathology See link below for PDF report (test code = Lab Report 2255) Result status (test This is Supplemental code = [id number]) [facility] [id number] [facility]QedtmkzqUICUANMYMJ2692-95-02 16:31:00 Test Item Value Reference Range Interpretation Comments POC Activated Clotting Time (test code 153 s = POC Activated Clotting Time) [facility]OtuflptOSTJCYFUZR5795-40-62 16:31:00 Test Item Value Reference Range Interpretation Comments POC Activated Clotting Time (test code 153 s = POC Activated Clotting Time) [facility] HospitalHsaynuiXECYZSGBVA7375-98-94 16:31:00 Test Item Value Reference Range Interpretation Comments POC Activated Clotting Time (test code 153 s = POC Activated Clotting Time) [facility] HospitalDpxqfprXUBKZYIJFS7824-54-10 16:31:00 Test Item Value Reference Range Interpretation Comments POC Activated Clotting Time (test code 153 s = POC Activated Clotting Time) [place] 587541-04-09 16:31:00 Test Item Value Reference Range Interpretation Comments POC Activated Clotting Time (test code 153 s = POC Activated Clotting Time) [place] 587541-04-09 16:31:00 Test Item Value Reference Range Interpretation Comments POC Activated Clotting Time (test code 153 s = POC Activated Clotting Time) [place] 587541-04-09 16:31:00 Test Item Value Reference Range Interpretation Comments POC Activated Clotting Time (test code 153 s = POC Activated Clotting Time) [place] 587541-04-09 14:37:00 Test Item Value Reference Range Interpretation Comments POC Activated Clotting Time (test code 454 s = POC Activated Clotting Time) [facility] HospitalUmyvqkfBTBRPPQZBO3520-04-67 14:37:00 Test Item Value Reference Range Interpretation Comments POC Activated Clotting Time (test code 454 s = POC Activated Clotting Time) [facility] HospitalNrtfggfJVFLIMHVDE9496-78-96 14:37:00 Test Item Value Reference Range Interpretation Comments POC Activated Clotting Time (test code 454 s = POC Activated Clotting Time) [facility] HospitalPrzfjwjIEGKZPANRB3344-98-58 14:37:00 Test Item Value Reference Range Interpretation Comments POC Activated Clotting Time (test code 454 s = POC Activated Clotting Time) [facility] HospitalPyefwtnBRXQNADOKL8259-50-56 14:37:00 Test Item Value Reference Range Interpretation Comments POC Activated Clotting Time (test code 454 s = POC Activated Clotting Time) [facility] HospitalQugcogwMLNSGWCMKC2318-14-06 14:37:00 Test Item Value Reference Range Interpretation Comments POC Activated Clotting Time (test code 454 s = POC Activated Clotting Time) [facility] HospitalPzboulaKRMPXUBMHT7209-83-56 14:37:00 Test Item Value Reference Range Interpretation Comments POC Activated Clotting Time (test code 454 s = POC Activated Clotting Time) [facility] HospitalJmfmdopYRKMCPXYQW5369-14-56 14:13:00 Test Item Value Reference Range Interpretation Comments POC Activated Clotting Time (test code 354 s = POC Activated Clotting Time) [place] 587541-04-09 14:13:00 Test Item Value Reference Range Interpretation Comments POC Activated Clotting Time (test code 354 s = POC Activated Clotting Time) [facility] HospitalSzmnjiqAKLYRRQMQA1835-79-33 14:13:00 Test Item Value Reference Range Interpretation Comments POC Activated Clotting Time (test code 354 s = POC Activated Clotting Time) [facility]qvqulxOFTQVSILXY2760-10-54 14:13:00 Test Item Value Reference Range Interpretation Comments POC Activated Clotting Time (test code 354 s = POC Activated Clotting Time) [facility]VqnwqpmISDWOMMLAY9167-07-35 14:13:00 Test Item Value Reference Range Interpretation Comments POC Activated Clotting Time (test code 354 s = POC Activated Clotting Time) [facility]daaKQYBEPQDSY7657-34-81 14:13:00 Test Item Value Reference Range Interpretation Comments POC Activated Clotting Time (test code 354 s = POC Activated Clotting Time) [facility]ZemtpwvEEQNLRUMJK4311-19-43 14:13:00 Test Item Value Reference Range Interpretation Comments POC Activated Clotting Time (test code 354 s = POC Activated Clotting Time) [facility] LGXOWVW5969-93-75 10:37:00Negative (08/29/20 5:37 AM) [facility] HermannCHEM PSAVZ5231-49-31 10:37:88687Zyxfhtpv HermannCHEM PANEL 2020-08-29 10:37:0028[facility] HermannCHEM NOPWF6629-91-26 10:37:001.01[facility] HermannCHEM VJGUH3732-44-99 10:37:95134Ofjcxodn HermannCHEM MEGJM1061-62-54 10:37:003.8[facility] HermannCHEM NJXEM7687-77-04 10:37:72016Sgryiaka HermannCHEM DWEVG1853-24-34 10:37:0028[facility] HermannCHEM CQRWU9275-60-46 10:37:009.8 [facility] HermannCHEM ZIZNS2783-63-29 10:37:0011.8[facility] HermannCHEM PANEL 2020-08-29 10:37:0059[facility] HermannCHEM SFHZO9952-50-07 10:37:002.9[facility] FgdlkyxUXFPZYQURK1307-56-64 10:37:006.8[facility] BzrslwfRKIKWENWMG3766-40-31 10:37:004.47[facility] IwwmrwtWGEAQDGYHJ9024-29-72 10:37:0010.6[facility] YLJMBDWLME2234-37-56 10:37:0034.0[facility] DkyizlvSKEXRBPWNN0984-24-20 10:37:00 76.1[facility] OlrqpxrZRENVGDAAL3285-48-21 10:37:00 Test Item Value Reference Range Interpretation Comments MCH (test code = MCH) 23.8 pg 27.0-31.0 [facility] IuhzsoaAIWGGWOWUK3677-26-96 10:37:0031.3[facility] HermannHEMATOLOGY 2020-08-29 10:37:0018.2[facility] QebhsaiEVLAIUNUBG2540-02-03 10:37:45756Xbmztlnq JbljiceSBOFAPPEFH2040-59-81 10:37:007.5[facility] RlentdqXDNUJOAQZF2553-60-96 10:37:00 Test Item Value Reference Range Interpretation Comments PT (test code = PT) 12.8 s 12.0-14.7 [facility] RemlpjgIJDQWTETYO7921-62-45 10:37:00 Test Item Value Reference Range Interpretation Comments INR (test code = INR) 0.97 1 0.85-1.17 [facility] JcihfsbMWXYFABYEG5785-68-57 10:37:00 Test Item Value Reference Range Interpretation Comments PTT (test code = PTT) 25.0 s 22.9-35.8 [facility] SiwhsbzUQNDYFCNOT7337-46-97 10:37:0070.5[facility] HermannHEMATOLOGY 2020-08-29 10:37:0018.8[facility] FdrqqpeILXGVEIJQN6999-19-77 10:37:009.5[facility] ZosezatUOBZQOWKTN9384-29-26 10:37:000.9[facility] FtkbzvsLCTIRQAOCO2661-19-49 10:37:000.3[facility] VlplwcvBWNJTWRALG0235-80-38 10:37:004.8[facility] KPPDKEWCCA6941-80-01 10:37:001.3[facility] KtmqobxDDXKSOSDUX9501-19-04 10:37:000.6 [facility] VyodbbvNIBUDVBUJQ2826-26-58 10:37:000.1[facility] HermannHEMATOLOGY 2020-08-29 10:37:001+ *ABN*(08/29/20 5:37 AM)[facility] NhpeswcYDFGUVQTZV1639-77-23 10:37:00Not Detected (08/29/20 5:37 AM)[facility] HermannBLOOD BANK RESULTS 2020-08-29 10:37:00Negative (08/29/20 5:37 AM)[facility] HermannCHEM QJNIE5962-89-84 10:37:46911Jbghroxx HermannCHEM WVATF6433-80-05 10:37:0028[facility] HermannCHEM XCRRC5687-28-92 10:37:001.01[facility] HermannCHEM SESDR3118-50-58 10:37:70452 [facility] HermannCHEM IIPHP2833-54-50 10:37:003.8[facility] HermannCHEM PANEL 2020-08-29 10:37:86052Jebgncvg HermannCHEM TJAUO3553-36-49 10:37:0028[facility] HermannCHEM ACMMH5626-06-41 10:37:009.8[facility] HermannCHEM YSBDX2002-82-43 10:37:0011.8[facility] HermannCHEM KHWBQ9789-86-40 10:37:0059[facility] HermannCHEM TRNNU3451-08-90 10:37:002.9[facility] ZtcfkumQYPMWGTGJP8400-38-47 10:37:006.8 [facility] RrryapfXVJMQPFOQT9841-01-69 10:37:004.47[facility] HermannHEMATOLOGY 2020-08-29 10:37:0010.6[facility] ZqotejpMZFCEGBPAL8537-50-34 10:37:0034.0[facility] UatyyelLUIFJVGBKG3616-44-69 10:37:0076.1[facility] KundwjxXVHOKSPOOK7940-26-24 10:37:00 Test Item Value Reference Range Interpretation Comments MCH (test code = MCH) 23.8 pg 27.0-31.0 [facility] UctyxtpRHNOHGNBTP0052-09-65 10:37:0031.3[facility] HermannHEMATOLOGY 2020-08-29 10:37:0018.2[facility] EinuyskGBAEKFUKOE5958-22-39 10:37:05163Qxvulugv FlxswegNUSVONZWDV6153-33-87 10:37:007.5[facility] ZomrqdmMHJAQCNGBZ5501-51-60 10:37:00 Test Item Value Reference Range Interpretation Comments PT (test code = PT) 12.8 s 12.0-14.7 [facility] CktmzvzYSTIFAEMQL7474-06-50 10:37:00 Test Item Value Reference Range Interpretation Comments INR (test code = INR) 0.97 1 0.85-1.17 [facility] JltcxulDWFWTWOVGQ3962-14-59 10:37:00 Test Item Value Reference Range Interpretation Comments PTT (test code = PTT) 25.0 s 22.9-35.8 [facility] WmlyzbzADIATOXIBQ5635-42-62 10:37:0070.5[facility] HermannHEMATOLOGY 2020-08-29 10:37:0018.8[facility] YnmbnljHEXBHZLQAU1628-58-90 10:37:009.5[facility] FohlfciUAEULAXFKZ2597-92-29 10:37:000.9[facility] VuafjoiEUSJGCDZOL9802-46-76 10:37:000.3[facility] YjnrajfULFHZLZYED6426-92-94 10:37:004.8[facility] PEIHFNKZXL1061-45-86 10:37:001.3[facility] YxhmkthIQSVGRUSMD2697-27-76 10:37:000.6 [facility] FoeqwgmMWBHMGHHSA0405-91-91 10:37:000.1[facility] HermannHEMATOLOGY 2020-08-29 10:37:001+ *ABN*(08/29/20 5:37 AM)[facility] UcufdssMWELOOWPQW8912-89-37 10:37:00Not Detected (08/29/20 5:37 AM)[facility] HermannBLOOD BANK RESULTS 2020-08-29 10:37:00Negative (08/29/20 5:37 AM)[facility] HermannCHEM TWMML1497-10-82 10:37:92134Urscclun HermannCHEM YMOKW8349-66-68 10:37:0028[facility] HermannCHEM ESCIR9782-36-23 10:37:001.01[facility] HermannCHEM SEGNT3343-46-72 10:37:11501 [facility] HermannCHEM SUOLQ1458-57-72 10:37:003.8[facility] HermannCHEM PANEL 2020-08-29 10:37:00440Hcklodly HermannCHEM CFGEK9610-14-60 10:37:0028[facility] HermannCHEM IYXTG6482-32-55 10:37:009.8[facility] HermannCHEM FSCTS2942-56-07 10:37:0011.8[facility] HermannCHEM VRHOL8186-39-97 10:37:0059[facility] HermannCHEM XAWOZ8320-91-01 10:37:002.9[facility] RtpwrbfUXQMGMRCJT1095-90-12 10:37:006.8 [facility] KlpchgcVZOSVUZAJU0279-68-16 10:37:004.47[facility] HermannHEMATOLOGY 2020-08-29 10:37:0010.6[facility] WpklsdlSNOEMDIYEA8666-95-90 10:37:0034.0[facility] TjtdqusDUFVCQNKAX7684-51-24 10:37:0076.1[facility] TcxnqurFHBVZESOKB6422-00-01 10:37:00 Test Item Value Reference Range Interpretation Comments MCH (test code = MCH) 23.8 pg 27.0-31.0 [facility] UoyzkfyBKAUTEFWKL1561-25-81 10:37:0031.3[facility] HermannHEMATOLOGY 2020-08-29 10:37:0018.2[facility] SvagcyiXBETATLVYH5851-67-18 10:37:60423Quiyyrxy UotqcadMVMYKJHFBN8577-22-31 10:37:007.5[facility] RulgqfsOKFUPZKKYQ6645-42-00 10:37:00 Test Item Value Reference Range Interpretation Comments PT (test code = PT) 12.8 s 12.0-14.7 [facility] XknnzfmETZCWTDXHM8614-33-80 10:37:00 Test Item Value Reference Range Interpretation Comments INR (test code = INR) 0.97 1 0.85-1.17 [facility] ApaseeuEKZOKPJLAN2346-48-81 10:37:00 Test Item Value Reference Range Interpretation Comments PTT (test code = PTT) 25.0 s 22.9-35.8 [facility] OegxfmrTCVGNUPHNN2000-45-32 10:37:0070.5[facility] HermannHEMATOLOGY 2020-08-29 10:37:0018.8[facility] QinebsbNIUJMNGDOK9144-29-34 10:37:009.5[facility] MlmmtbnVZOKJEFAKV4376-78-05 10:37:000.9[facility] PvbutvbTJNUEBSOET5833-01-63 10:37:000.3[facility] QufkvuiNXFOKCXPPZ1732-76-35 10:37:004.8[facility] [place] XGLVZVKZDP7306-71-47 10:37:001.3[facility] OunziciLEQPRLVXVX8327-15-12 10:37:000.6 [facility] OjpdpmeICAPEQPNSA1703-43-70 10:37:000.1[facility] HermannHEMATOLOGY 2020-08-29 10:37:001+ *ABN*(08/29/20 5:37 AM)[facility] GqxgvxqFUWQSVAETK8138-51-63 10:37:00Not Detected (08/29/20 5:37 AM)[facility] HermannBLOOD BANK RESULTS 2020-08-29 10:37:00Negative (08/29/20 5:37 AM)[facility] HermannCHEM KSJSN1371-42-29 10:37:75305Swfpfbes HermannCHEM FGZKX5203-23-12 10:37:0028[facility] HermannCHEM YATOJ9770-71-94 10:37:001.01[facility] HermannCHEM RDANA2692-76-95 10:37:20494 [facility] HermannCHEM IYBLX7183-16-39 10:37:003.8[facility] HermannCHEM PANEL 2020-08-29 10:37:62993Arpllhpw HermannCHEM ZBNNQ5627-50-46 10:37:0028[facility] HermannCHEM QILVN1381-10-98 10:37:009.8[facility] HermannCHEM NRNOY8973-74-08 10:37:0011.8[facility] HermannCHEM ZOPJH8368-00-70 10:37:0059[facility] HermannCHEM ECXNT3096-34-43 10:37:002.9[facility] ZnmjocxOOEZSOKRQJ0809-75-33 10:37:006.8 [facility] OcedtphIKEPASOBVB3145-15-53 10:37:004.47[facility] HermannHEMATOLOGY 2020-08-29 10:37:0010.6[facility] EtlrirdXTZKHGIWFY0608-89-40 10:37:0034.0[facility] BemnsloUZGXSVAMNO3008-09-92 10:37:0076.1[facility] JybqyatVGJWNSEAHM3218-81-08 10:37:00 Test Item Value Reference Range Interpretation Comments MCH (test code = MCH) 23.8 pg 27.0-31.0 [facility] LithkbtXAVIOENSPB0380-27-37 10:37:0031.3[facility] HermannHEMATOLOGY 2020-08-29 10:37:0018.2[facility] EltxpeuNMGAPGYJYY3452-47-18 10:37:89766Bdnnlear XbmrbbyEADFWJTMWJ7913-75-25 10:37:007.5[facility] KhhvehgNZYKBYNDCF1952-34-99 10:37:00 Test Item Value Reference Range Interpretation Comments PT (test code = PT) 12.8 s 12.0-14.7 [facility] MxlzfllFMVWHIAOAU6070-82-75 10:37:00 Test Item Value Reference Range Interpretation Comments INR (test code = INR) 0.97 1 0.85-1.17 [facility] OcbxdrrSWAXPGRIDQ3886-62-31 10:37:00 Test Item Value Reference Range Interpretation Comments PTT (test code = PTT) 25.0 s 22.9-35.8 [facility] ZzieugkNKGIBVSIVW6019-19-71 10:37:0070.5[facility] HermannHEMATOLOGY 2020-08-29 10:37:0018.8[facility] SapmsfpZYFTHDGBOK5234-62-04 10:37:009.5[facility] HuloamfCITVSSRFKG1197-02-34 10:37:000.9[facility] PudxovgOVZQRZPSKF4732-18-34 10:37:000.3[facility] PmnujlqWCVIDMHFUS8428-16-70 10:37:004.8[facility] WUUKNAPEGA1781-77-88 10:37:001.3[facility] WheqsjuLQMUHBDDEV8137-58-20 10:37:000.6 [facility] RsqhirkKIPDYXYQSJ0192-80-10 10:37:000.1[facility] HermannHEMATOLOGY 2020-08-29 10:37:001+ *ABN*(08/29/20 5:37 AM)[facility] DtvkwxdBYPJZAUDOG9507-51-48 10:37:00Not Detected (08/29/20 5:37 AM)[facility] HermannBLOOD BANK RESULTS 2020-08-29 10:37:00Negative (08/29/20 5:37 AM)[facility] HermannCHEM PYTRG8306-23-41 10:37:11401Tdqmwaqd HermannCHEM SLZXO7009-34-86 10:37:0028[facility] HermannCHEM BVDNV9394-12-49 10:37:001.01[facility] HermannCHEM IZUOZ6487-37-38 10:37:88200 [facility] HermannCHEM SUWTK6877-44-84 10:37:003.8[facility] HermannCHEM PANEL 2020-08-29 10:37:18139Lufmnprb HermannCHEM JXDCD2777-46-48 10:37:0028[facility] HermannCHEM VQNTB3903-67-77 10:37:009.8[facility] HermannCHEM FJSDM5446-71-64 10:37:0011.8[facility] HermannCHEM SGFEJ6057-60-65 10:37:0059[facility] HermannCHEM WMTQY1867-01-73 10:37:002.9[facility] KlagtyzYBKHXBTBLU2184-02-81 10:37:006.8 [facility] ZnsuzweQGYKVVIJSS5196-88-98 10:37:004.47[facility] HermannHEMATOLOGY 2020-08-29 10:37:0010.6[facility] UlwqizfCXMTTBKKQQ3779-82-81 10:37:0034.0[facility] HsgmsvrMGHBOIACQW8254-89-93 10:37:0076.1[facility] SwkygwuMYQPTDJITP0253-96-68 10:37:00 Test Item Value Reference Range Interpretation Comments MCH (test code = MCH) 23.8 pg 27.0-31.0 [facility] FmrhmmvIUWPSTARER0398-67-78 10:37:0031.3[facility] HermannHEMATOLOGY 2020-08-29 10:37:0018.2[facility] LkbuwjnCSUBHZULKS3409-73-41 10:37:07802Efizwwba ApfjjheXDWNRZZEQJ4360-13-20 10:37:007.5[facility] BhxnenjDYGFJDGWPF7406-82-61 10:37:00 Test Item Value Reference Range Interpretation Comments PT (test code = PT) 12.8 s 12.0-14.7 [facility] WmsxeuzMLLWDLGFZD3187-85-03 10:37:00 Test Item Value Reference Range Interpretation Comments INR (test code = INR) 0.97 1 0.85-1.17 [facility] DtwovsaWODLJFZRCT8631-60-58 10:37:00 Test Item Value Reference Range Interpretation Comments PTT (test code = PTT) 25.0 s 22.9-35.8 [facility] AcrxgvnFWLUEBQAHA3790-10-48 10:37:0070.5[facility] HermannHEMATOLOGY 2020-08-29 10:37:0018.8[facility] ParlybfXOBHGSUPNC0727-95-47 10:37:009.5[facility] FmjhyedDIRKEARVFR0843-58-61 10:37:000.9[facility] WfiskovWXTDDWKOMB4404-88-56 10:37:000.3[facility] CxwjinlPLCXANFBPZ2732-17-21 10:37:004.8[facility] MDOLAHFKFR3742-03-79 10:37:001.3[facility] QkhrsziEMQMXUTUFM9695-45-94 10:37:000.6 [facility] QkiaygmSFPKPLZCKQ3796-11-86 10:37:000.1[facility] HermannHEMATOLOGY 2020-08-29 10:37:001+ *ABN*(08/29/20 5:37 AM)[facility] MordingSNADWSYPRE9714-63-24 10:37:00Not Detected (08/29/20 5:37 AM)[facility] HermannBLOOD BANK RESULTS 2020-08-29 10:37:00Negative (08/29/20 5:37 AM)[facility] HermannCHEM IGNVD6513-50-42 10:37:78386Fhsckvrr HermannCHEM XLFTJ2525-73-05 10:37:0028[facility] HermannCHEM AFUJI0665-27-42 10:37:001.01[facility] HermannCHEM OWHDD5000-93-74 10:37:09774 [facility] HermannCHEM ONBKR7088-35-04 10:37:003.8[facility] HermannCHEM PANEL 2020-08-29 10:37:11268Sxtyvoyc HermannCHEM TFPTI4372-14-14 10:37:0028[facility] HermannCHEM VOFEB9533-46-53 10:37:009.8[facility] HermannCHEM OYQON6199-34-36 10:37:0011.8[facility] HermannCHEM OWNBJ4365-33-56 10:37:0059[facility] HermannCHEM HVVLH7460-83-34 10:37:002.9[facility] VcfswavOPSTGKBZFM5610-58-45 10:37:006.8 [facility] UrhqwanBHMZTAAFSY0476-05-76 10:37:004.47[facility] HermannHEMATOLOGY 2020-08-29 10:37:0010.6[facility] RnnzxfqDUSQQQKJTI7956-32-61 10:37:0034.0[facility] XclwbpfDAGZQJUVPQ4762-71-53 10:37:0076.1[facility] ZufntcgBPBHQSEKEO2334-80-60 10:37:00 Test Item Value Reference Range Interpretation Comments MCH (test code = MCH) 23.8 pg 27.0-31.0 [facility] HbowlqvTTONZPXJXE6411-12-42 10:37:0031.3[facility] HermannHEMATOLOGY 2020-08-29 10:37:0018.2[facility] CmfloktXOPYQWXGJY7245-38-34 10:37:99167Iqgwpbtb DbulbsrLBIOLVERWB6830-21-48 10:37:007.5[facility] KzhwdulPRWCMOAVHI7114-02-63 10:37:00 Test Item Value Reference Range Interpretation Comments PT (test code = PT) 12.8 s 12.0-14.7 [facility] RusnamoLOTWJLRJZQ7830-82-30 10:37:00 Test Item Value Reference Range Interpretation Comments INR (test code = INR) 0.97 1 0.85-1.17 [facility] WnpdbjqGJRHDYSUHX2362-75-84 10:37:00 Test Item Value Reference Range Interpretation Comments PTT (test code = PTT) 25.0 s 22.9-35.8 [facility] ZlackjvFZNSLELTIS7863-98-11 10:37:0070.5[facility] HermannHEMATOLOGY 2020-08-29 10:37:0018.8[facility] RekrisjNFNJREQFNM2575-34-13 10:37:009.5[facility] GbzngrkULHMQTQCIX7788-12-36 10:37:000.9[facility] KeiphhjHFHDJPIURT6171-77-16 10:37:000.3[facility] BfwirafMVGLJEOIKS5255-74-27 10:37:004.8[facility] [place] ABAUDRTWSR2114-66-67 10:37:001.3[facility] HunohfdIAYOYSGKHL0142-61-71 10:37:000.6 [facility] NcxtcpxMMELUDNINL3708-90-20 10:37:000.1[facility] HermannHEMATOLOGY 2020-08-29 10:37:001+ *ABN*(08/29/20 5:37 AM)[facility] LtplmlcEMNUZOLAKU4927-40-01 10:37:00Not Detected (08/29/20 5:37 AM)[facility] HermannBLOOD BANK RESULTS 2020-08-29 10:37:00Negative (08/29/20 5:37 AM)[facility] HermannCHEM ZYBHJ7498-59-10 10:37:61144Rnzbmrto HermannCHEM KFJLT3593-78-48 10:37:0028[facility] HermannCHEM WFZPT7566-92-29 10:37:001.01[facility] HermannCHEM ZRMVU0168-48-78 10:37:27992 [facility] HermannCHEM IGEKP3603-24-22 10:37:003.8[facility] HermannCHEM PANEL 2020-08-29 10:37:88516Zmrioabw HermannCHEM FKWMQ2786-37-36 10:37:0028[facility] HermannCHEM JWWHF0694-77-40 10:37:009.8[facility] HermannCHEM PQQGW5673-85-51 10:37:0011.8[facility] HermannCHEM KTCZB1579-10-09 10:37:0059[facility] HermannCHEM GMJKE9593-97-87 10:37:002.9[facility] GjjgwwnRUDXMQINFO5351-71-83 10:37:006.8 [facility] LzmubflDXTMDEJNYN9398-24-23 10:37:004.47[facility] HermannHEMATOLOGY 2020-08-29 10:37:0010.6[facility] LyymqlwLAIUSHBXQJ6881-96-11 10:37:0034.0[facility] GfprdlrJBIZVRNHRC3113-73-19 10:37:0076.1[facility] WdfhuevCFDTHFODUA9504-81-75 10:37:00 Test Item Value Reference Range Interpretation Comments MCH (test code = MCH) 23.8 pg 27.0-31.0 [facility] UwkehgiDMLXUMZWEO9534-10-76 10:37:0031.3[facility] HermannHEMATOLOGY 2020-08-29 10:37:0018.2[facility] MlehjbiVYLHSJEHPF0339-78-17 10:37:53128Vkxpuggc NnwucgbLNSWTILIJI5175-79-70 10:37:007.5[facility] HmahszgGSTVFAVMPR1318-86-05 10:37:00 Test Item Value Reference Range Interpretation Comments PT (test code = PT) 12.8 s 12.0-14.7 [facility] VkrxqcwMDVWEWBHHB5407-92-54 10:37:00 Test Item Value Reference Range Interpretation Comments INR (test code = INR) 0.97 1 0.85-1.17 [facility] KiycvhtFCTWYQFKVO1944-04-81 10:37:00 Test Item Value Reference Range Interpretation Comments PTT (test code = PTT) 25.0 s 22.9-35.8 [facility] KkscpjmKZKBZWJRFI8531-14-19 10:37:0070.5[facility] HermannHEMATOLOGY 2020-08-29 10:37:0018.8[facility] TmybevzVZLYXUDDUZ4222-81-30 10:37:009.5[facility] OpocameDXDJRMRBXF7798-22-23 10:37:000.9[facility] EjswksbRPJVIRJJLI9029-71-56 10:37:000.3[facility] HucuuxgIOCRULYSHQ2198-15-87 10:37:004.8[facility] FKWTZXSTAY5430-43-70 10:37:001.3[facility] OrhxztlRNBXLTPODT0926-79-33 10:37:000.6 [facility] JgjbbzoPILHGKLRHO6812-43-47 10:37:000.1[facility]annHE[facility] 2020-08-29 10:37:001+ *ABN*(08/29/20 5:37 AM)[facility] WzskyyxNNKQOWQPDZ2049-27-87 10:37:00Not Detected (08/29/20 5:37 AM)[facility], [facility], TV,PCR, IN [id number] 15:38:00 Test Item Value Reference Range Interpretation Comments FT (test code = CHTR) Not detected (qualifier Not Detected N value) FT (test code = Not detected (qualifier Not Detected N NGONO) value) FT (test code = TRVG) Not detected (qualifier Not Detected N value) [facility] [id number] 10:57:00 Test Item Value Reference Range Interpretation Comments Color (test code = UCOLR) Dk. Yellow Clarity (test code = UCLAR) Hazy Glucose (test code = UGLUC) NEGATIVE NEGATIVE N Bilirubin (test code = UBILI) NEGATIVE NEGATIVE N Ketones (test code = UKET) NEGATIVE NEGATIVE N Specific [place] (test code = 1.025 1.005-1.030 A USPGR) [...] = None Seen None Seen N URCRYS) [facility]"
--- NOTE | 2022-05-04 16:37 | EDPHYS ---
Physician Documentation [facility] Name: Marjan Kolb Age: 67 yrs Sex: Female : 1955 Arrival Date: 05/04/2022 Time: 16:14 Bed IW3 Private MD: ED Physician Jose Shah HPI: 05/04 16:38 This 67 yrs old Female presents to ER via Unassigned with complaints of Fall Injury. snw 16:38 Details of fall: The patient fell from an upright position, while standing. Onset: The snw symptoms/episode began/occurred suddenly, today. Associated injuries: The patient sustained left wrist, painful injury, left low back, painful injury. Severity of symptoms: At their worst the symptoms were very mild, in the emergency department the symptoms are unchanged. It is unknown whether or not the patient has had similar symptoms in the past. The patient has been recently seen at the [facility] Emergency Department, today. Historical: - Allergies: 17:11 Bactrim; ld1 17:11 butorphanol; ld1 17:11 Fentanyl; ld1 17:11 Reglan; ld1 17:11 Sulfa (Sulfonamide Antibiotics); ld1 17:11 TRIMETHOPRIM; ld1 - PMHx: 17:11 panic attack; Migraine; Hypertensive disorder; HIV positive; Hepatitis; esophageal ld1 varicies; Bipolar disorder; Atrial fibrillation; Anxiety; - Immunization history:: Adult Immunizations up to date. - Social history:: Smoking status: . ROS: 16:33 Eyes: Negative for injury, pain, redness, and discharge, ENT: Negative for injury, snw pain, and discharge, Neck: Negative for injury, pain, and swelling, Cardiovascular: Negative for chest pain, palpitations, and edema, Respiratory: Negative for shortness of breath, cough, wheezing, and pleuritic chest pain, Abdomen/GI: Negative for abdominal pain, nausea, vomiting, diarrhea, and constipation. 16:33 : Negative for injury, bleeding, discharge, and swelling, Skin: Negative for injury, rash, and discoloration, Neuro: Negative for headache, weakness, numbness, tingling, and seizure, Psych: Negative for depression, anxiety, suicide ideation, homicidal ideation, and hallucinations. 16:33 Constitutional: Positive for pt states she fell at the bus stop. 16:33 Back: Positive for injury or acute deformity, pain at rest, of the left low back. 16:33 MS/extremity: Positive for injury or acute deformity, of the left wrist. Exam: 16:24 Head/Face: Normocephalic, atraumatic. Eyes: Pupils equal round and reactive to light, snw extra-ocular motions intact. Lids and lashes normal. Conjunctiva and sclera are non-icteric and not injected. Cornea within normal limits. Periorbital areas with no swelling, redness, or edema. Chest/axilla: Normal chest wall appearance and motion. Nontender with no deformity. No lesions are appreciated. Cardiovascular: Regular rate and rhythm with a normal S1 and S2. No gallops, murmurs, or rubs. Normal PMI, no JVD. No pulse deficits. Respiratory: Lungs have equal breath sounds bilaterally, clear to auscultation and percussion. No rales, rhonchi or wheezes noted. No increased work of breathing, no retractions or nasal flaring. Back: No spinal tenderness. No costovertebral tenderness. Full range of motion. 16:24 Neuro: Awake and alert, GCS 15, oriented to person, place, time, and situation. Cranial nerves II-XII grossly intact. Sensory grossly intact. Cerebellar exam normal. 16:24 Constitutional: The patient appears Ms. Kolb has been in the ED today, dx with CoVid. She has been sitting in the ED lobby in a wheelchair post discharge in a hospital gown. She state now that she fell at the bus stop. On exam, she remains in the ED lobby in the wheelchair in her hospital gown. States her wrist (left) and lower back are hurting. No abrasions, contusions noted 16:24 Skin: Appearance: Color: dusky, Temperature: normal temperature, Moisture: dry. Vital Signs: 17:09 BP 152 / 88; Pulse 82; Resp 18; Temp 98.4; Pulse Ox 97% ; ld1 MDM: 16:36 Patient medically screened. snw 16:38 Data reviewed: vital signs, nurses notes. snw 05/04 16:37 Order name: Wrist Splint: velcro (left); Complete Time: 17:06 snw Administered Medications: 17:06 Drug: Aspirin 81 mg Route: PO; ss 17:12 Follow up: Response: Medication administered at discharge. Disposition: 18:49 Co-signature as Attending Physician, Jose Shah DO I was immediately available onsite ms3 in the emergency department for consultation in the care of the patient. Disposition Summary: 05/04/22 16:36 Discharge Ordered Location: Home snw Condition: Stable snw Diagnosis - Chronic pain syndrome snw Followup: snw - With: Emergency Department - When: As needed - Reason: Worsening of condition Followup: snw - With: Private Physician - When: 2 - 3 days - Reason: Recheck today's complaints, Continuance of care, Re-evaluation by your physician Discharge Instructions: - Discharge Summary Sheet snw - Chronic Pain, Adult snw - How to Use Cold Therapy snw - Heat Therapy snw - Managing Pain Without Opioids snw Forms: - Medication Reconciliation Form snw - Thank You Letter snw - Antibiotic Education snw - Prescription Opioid Use snw Signatures: Cristina Mueller FNP-C [employer]ATOR-Csnw Sandra Cadet RN RN Jose Shah DO DO ms3 Wanda Rust RN RN ld1
[2022-05-04] MEDS ORDERED: ASPIRIN 81 MG CHEWABLE TABLET ONE (16:59)
--- NOTE | 2022-05-04 17:12 | ER ---
Nurse's Notes [facility] [place] [place] Name: Marjan Kolb Age: 67 yrs Sex: Female : 1955 Arrival Date: 05/04/2022 Time: 16:14 Bed IW3 Private MD: Diagnosis: Chronic pain syndrome Presentation: 05/04 17:09 Chief complaint: pt has been in the ER lobby all day; left for approx 1 hour and ld1 returned to check in again for 2x in 24 hours stating she fell at the bus stop. Pt has no injuries noted upon on visualization. Coronavirus screen: Vaccine status: Patient reports receiving the 2nd dose of the covid vaccine. Client denies travel out of the [place] in the last 14 days. Ebola Screen: Patient negative for fever greater than or equal to 101.5 degrees Fahrenheit, and additional compatible Ebola Virus Disease symptoms Patient denies exposure to infectious person. Patient denies travel to an Ebola-affected area in the 21 days before illness onset. Initial Sepsis Screen: Does the patient meet any 2 criteria? No. Patient's initial sepsis screen is negative. Does the patient have a suspected source of infection? No. Patient's initial sepsis screen is negative. Risk Assessment: Do you want to hurt yourself or someone else? Patient reports no desire to harm self or others. 17:09 Method Of Arrival: Wheelchair ld1 17:09 Acuity: BLAYNE 5 ld1 Triage Assessment: 17:11 General: Appears in no apparent distress. Behavior is calm, cooperative, appropriate ld1 for age. Historical: - Allergies: 17:11 Bactrim; ld1 17:11 butorphanol; ld1 17:11 Fentanyl; ld1 17:11 Reglan; ld1 17:11 Sulfa (Sulfonamide Antibiotics); ld1 17:11 TRIMETHOPRIM; ld1 - PMHx: 17:11 panic attack; Migraine; Hypertensive disorder; HIV positive; Hepatitis; esophageal ld1 varicies; Bipolar disorder; Atrial fibrillation; Anxiety; - Immunization history:: Adult Immunizations up to date. - Social history:: Smoking status: . Screenin:09 [facility] ED Fall Risk Assessment (Adult) History of falling in the last 3 months, ss including since admission Yes- fall prone (multiple falls) (3 pts) Confusion or Disorientation No (0 pts) Intoxicated or Sedated No (0 pts) Impaired Gait No (0 pts) Mobility Assist Device Used No (0 pt) Altered Elimination No (0 pt) Score/Fall Risk Level 3 or more points = High Risk Maintained a safe environment, Educated pt \T\ family on fall prevention, incl call for assistance when getting out of bed, Provided non-skid footwear. Abuse screen: Denies threats or abuse. Denies injuries from another. Nutritional screening: No deficits noted. Tuberculosis screening: Never had TB. Vital Signs: 17:09 BP 152 / 88; Pulse 82; Resp 18; Temp 98.4; Pulse Ox 97% ; ld1 ED Course: 16:14 Patient arrived in ED. cc5 16:14 Crist[facility] Mueller [facility]NP[facility]C [facility] snw 16:14 Jose Shah DO is Attending Physician. snw 17:06 No provider procedures requiring assistance completed. Patient did not have IV access ss during this emergency room visit. Velcro wrist splint applied to left wrist. 17:11 Triage completed. ld1 17:11 Arm band placed on right wrist. ld1 Administered Medications: 17:06 Drug: Aspirin 81 mg Route: PO; ss 17:12 Follow up: Response: Medication administered at discharge. ss Outcome: 16:36 Discharge ordered by MD. snw 17:11 Discharged to home ambulatory. ss 17:11 Condition: good 17:11 Discharge instructions given to patient, Instructed on discharge instructions, follow up and referral plans. Demonstrated understanding of instructions, follow-up care. 17:12 Patient left the ED. ss Signatures: Cristina Mueller FNP-C FNP-Sandra Green RN RN Wanda Rust RN RN ld1 Anika White cc5
[2022-05-04 17:16] VITALS: BP 152/88; TEMP 98.4; O2SAT 97
== END 2022-05-04 17:12 | disposition home or self-care (01) ==
LOC: ER 16:03
DX: G89.4 Chronic pain syndrome (principal); M54.50 Low back pain, unspecified; M25.532 Pain in left wrist; Z88.1 Allergy status to other antibiotic agents; Z88.2 Allergy status to sulfonamides; Z88.8 Allergy status to other drugs, medicaments and biological substances

== ENCOUNTER 2022-05-07 10:02 | Emergency (ER) | payer OTHER ==
--- OUTSIDE RECORDS SUMMARY | 2022-05-07 10:21 | XMS REPORT | Continuity of Care Document ---
:1955 Author Organization [facility] t Address [address] [place] [address] Care Team Providers Name Role Phone Urmila Rahman Primary Care Physician ELAN LIRA Attending Clinician Unavailable HEMATDENZEL, JACKIER Attending Clinician Unavailable SANTIAGO CARDENAS Attending Clinician Unavailable ANETTE OLEA Attending Clinician Unavailable Anette Olea MD Attending Clinician Santiago Sanchez Attending Clinician PAULETTE GRAY S Attending Clinician Unavailable Gray PAC, Paulette S Attending Clinician UNKNOWN, ATTENDING Attending Clinician Unavailable Robbi Bal Attending Clinician [facility] Attending Clinician Unavailable Isaias Whiteside RN Attending Clinician Unavailable TOMY MARIE Attending Clinician Unavailable Reilly Means MD Attending Clinician Ofe Shields MD Attending Clinician Tomy Marie MD Attending Clinician Doctor Unassigned, Wing Attending Clinician Unavailable Bill GUO Attending Clinician Unavailable Bill Rose Attending Clinician CHARITY MCALLISTER Attending Clinician Unavailable Charity Mcallister MD Attending Clinician GADIEL KOEHLER Attending Clinician Unavailable Mike Lund Attending Clinician Unavailable NIKOLAI REEVES Attending Clinician Unavailable Eliseo Arce MD Attending Clinician Carol Ann ORACLE EBS DEVELOPER, Sarai Lieberman Attending Clinician [phone] Ashly Pelletier MA Attending Clinician Unavailable Dagoberto Bass MD Attending Clinician Cuba Evangelista Attending Clinician Lab, Adc Fam Pob I Attending Clinician Unavailable Monica Rodas MA Attending Clinician Unavailable Agustina Ortiz MA Attending Clinician Unavailable Rody Maguire RN Attending Clinician Unavailable Kirit Flood MD, V. Attending Clinician HEMATPOLIZ, BEVERLY Attending Clinician Unavailable Gloria Hinojosa Attending Clinician Michael Hagen RN Attending Clinician Unavailable Team, [facility] Attending Clinician UnavailDO PORSHA Newell Attending Clinician Unavailable Rodo JENKINS, Gadiel Attending Clinician Tyrone JENKINS, Eveline Sierra Attending Clinician Stanislav RAMIREZ, Eladio Inman Attending Clinician Unavailable Leyda Willis Attending Clinician [phone] Selvin RAMIREZ, Stefanie Attending Clinician Unavailable TOMY MARIE Admitting Clinician Unavailable Frank JENKINS, Tomy Admitting Clinician Bill GUO Admitting Clinician Unavailable RahmanLele bird Kristen Admitting Clinician Unavailable Mike Lund Admitting Clinician Unavailable ELISEO ARCE Admitting Clinician Unavailable DO PORSHA STREETER Admitting Clinician Unavailable Payers Payer Name Policy Type Policy Number Effective Date Expiration Date S gabino [facility] [id number] 2012 STAR PLUS OON 00:00:00 [facility] [id number] 2019 DUAL COMPLETE HMO 00:00:00 [facility] [id number] 2019 PLUS 00:00:[address] [facility] [id number] 2020 00:00:00 [facility] [id number] 2019 [place] STAR 00:00:00 [employer] MEDICARE ADV [id number] 2019 2019 00:00:00 00:00:00 Problems Condition Condition Condition Status Onset Resolution Last Treating Co mments Source Name Details Category Date Date Treatment Clinician Date Dyspnea, Dyspnea, Disease Active Unive rs unspecifie unspecifie 02-11 it y of d type d type 00:00: [place] 00 Medical Branch Gastropare Gastropare Disease Active Overview : Methodi sis sis 4-[address] 00:00: [facility] note l might be different from the original. Added automatic ally from request for surgery [id number] Dysphagia Dysphagia Disease Active Overview: Methodi 4-[address] 00:00: [facility] 00 note l might be different from the original. Added automatic ally from request for surgery [id number] CCL / EPS CCL / EPS Diagnosis Active 2020-10-15 Memoria PVI PVI 3-30 17:07:00 l ABLATION ABLATION 00:00: Patel n W/ CARTO / W/ CARTO / 00 GA / T GA / T Active 08/19/2020 [facility] Food Food Disease Active 2019-05 [...] 5-08 it y of disorder disorder 00:00: Medical [...] [facility] hoxazole 1-25 Clear 00:00: Garcia 00 [facility] trimetho DA Active SV [facility] prim 1-25 Clear 00:00: Garcia 00 [facility] codeine DA Active SV N/V [facility] 1-25 Clear 00:00: Garcia 00 [facility] Metoclop Propensi Active [place] ramide ty to 7 Health adverse 00:00: reaction 00 s BUTORPHA [...] Stop Date Source Natural father Diabetes [facility] Natural father Other - see comments [facility] Natural father [facility] Natural [facility] Hy[facility] Natural father Kidney disease Method [facility] Natural mother [place] [facility] Social History Social Habit Start Date Stop Date Quantity Comments Source History SDOH Scientologist Alcohol Frequency Hospita l History SDOH Scientologist Alcohol Std Drinks Hospit al History SDOH Scientologist Alcohol Binge Hospital Exposure to 2022-04-26 2022-05-06 Yes University of SARS-CoV-2 (event) 00:00:00 14:11:00 [facility] Tobacco use and 2022-02-11 2022-02-11 Former smokeless Uni versity of exposure 00:00:00 00:00:00 tobacco user [facility] [place] Tobacco Comment 2022-02-11 2022-02-11 Smokes approx 1-2 Un iversity of 00:00:00 00:00:[address] [facility] day when she Branch smokes Alcohol intake 2020-12-08 2020-12-08 Current drinker [facility] 00:00:00 00:00:00 of [facility] (finding) Cigarettes smoked 2020-09-05 2020-09-[address] current (pack [facility] - Reported Cigarette 2020-09-05 2020-09-05 Scientologist pack-years 00:00:00 00:00:00 Hospital Alcohol Comment 2016-09-23 2016-09-23 rare Scientologist 00:00:00 00:00:00 Hospital History of tobacco 2011-09-29 User of smokeless University of use 00:00:00 tobacco [facility] Sex Ass[birth year] At [birth year] [facility] 00:00:00 00:00:00 Smoking Status Start Date Stop Date Source Ex-smoker 2022-02-11 00:00:00 2022-02-11 00:00:00 Universi ty of [facility] Medications Ordered Filled Start Stop Current Ordering Indication Dosage Frequency Signature Comments Components Source Medication Medication Date Date Medication? Clinician (SIG) Name Name ladi- 2021-05- No 1{tbl} 1 tablet, Univers acetaminoph 07-08 Oral, ity of en-caff 00:15: 23:19 ONCE, 1 [place] (ESGIC) 00 :00 dose, On Medical 50-325-40 [place] mg tablet 1 05/06/22 tablet at 1815, JOE NaCl 0.9% 2021-05- No 500mL at 999 Univ ers (NS) bolus 2-16 12-16 mL/hr, 500 it y of infusion 00:00: 00:17 mL, IV [place] 500 mL 00 :00 Infusion, Medical ONCE, 1 Branch dose, On [facility] 05/06/22 at 1800, JOE ketorolac 2021-05 No 15mg 15 mg, Unive rs (TORADOL) 2-15 12-15 Slow IV ity of injection 22:00: 22:19 Push, [place] 15 mg 00 :00 ONCE, 1 Medical dose, On Branch [place] 05/06/22 at 1600, JOE NaCl 0.9% 2021-05 No 1000mL at 999 Uni vers (NS) bolus 2-15 12-15 mL/hr, ity of infusion 22:00: 23:41 1,000 mL, [place] 1,000 mL 00 :00 IV Medical Infusion, Branch ONCE, 1 dose, On [facility] 05/06/22 at 1600, JOE ondansetron 2021-05 No 8mg 8 mg, Slow Univers (ZOFRAN 2-15 12-15 IV Push, ity of (PF)) 21:15: 22:19 ONCE, 1 [place] injection 8 00 :00 dose, On Medi porfirio mg [place] [facility] 05/06/22 at 1515, JOE ondansetron 2021-05 Yes [id number] 1-2 U nivers 4 mg tablet 2-15 tablets ity o f 00:00: every 8 [place] 00 hours as Medical needed for Branch nausea benzonatate 2021-05 Yes [id number] 200mg Take 1 Univers 200 mg 2-15 capsule by ity of capsule 00:00: mouth 3 [place] 00 (three) Medical times Branch daily as needed for Cough. albuterol 2021-05 Yes [id number] 2{puff} Inhale 2 Univers 90 2-15 Puffs ity of mcg/actuati 00:00: every 4 [place] on inhaler 00 (four) Medical hours as Branch needed for Wheezing or Shortness of Breath. butalbital- 2021-05 Yes [id number] 1{tbl} Take 1 Univers acetaminoph 2-15 tablet by ity of en-caff 00:00: mouth [place] 50-325-40 00 every 4 Medical mg tablet (four) Branch hours as needed (headache) . nirmatrelvi 2021-05- Yes [id number] 2{tbl} Take 2 Univers r-ritonavir 2-15 -21 tablets by i ty of (PAXLOVID, 00:00: 05:59 [place] EUA,) 300 00 :00 the Medical mg (150 mg morning Branch x 2)-100 mg and 2 tablet tablets in the evening. Do all this for 5 days. ondansetron 2021-05- No 4mg 4 mg, Univ ers (ZOFRAN-ODT -04-22 Oral, ity of ) 22:45: 21:53 ONCE, 1 [place] disintegrat 00 :00 dose, On Medi porfirio ing tablet [place] 4 mg 04/22/22 at 1645, Routine amoxicillin 2021-05 Yes [id number] 1{tbl} Take 1 Univers -clavulanat 2- [id number] tablet by i ty of e 875-125 00:00: mouth [place] mg per 00 every 12 Medical tablet (twelve) Branch hours. ondansetron 2021-05 Yes [id number] 4mg Take 1 Univers 4 mg 2- [id number] tablet by ity of disintegrat 00:00: mouth [place] ing tablet 00 every 8 Medica l (eight) Branch hours as needed for Nausea and Vomiting (N/V). amoxicillin 2021-05 Yes [id number] 1{tbl} Take 1 Univers -clavulanat 2- [id number] tablet by i ty of e 875-125 00:00: mouth [place] mg per 00 every 12 Medical tablet (twelve) Branch hours. ondansetron 2021-05 Yes [id number] 4mg Take 1 Univers 4 mg 2-01 [id number] tablet by ity of disintegrat 00:00: mouth [place] ing tablet 00 every 8 Medica l (eight) Branch hours as needed for Nausea and Vomiting (N/V). amoxicillin 2021-05 Yes [id number] 1{tbl} Take 1 Univers -clavulanat 2-01 [id number] tablet by i ty of e 875-125 00:00: mouth [place] mg per 00 every 12 Medical tablet (twelve) Branch hours. ondansetron 2021-05 Yes [id number] 4mg Take 1 Univers 4 mg 2- [id number] tablet by ity of disintegrat 00:00: mouth [place] ing tablet 00 every 8 Medica l (eight) Branch hours as needed for Nausea and Vomiting (N/V). zoster 2021-05- Yes [id number] .5mL 0.5 mL by Univers vaccine, 0-05 03- 9104 Intramuscu ity of recombinant 00:00: 04:59 lar route [place] (SHINGRIX, 00 :00 once now Medic al PF,) for 1 Branch injection dose. And repeat in 2-6 months zoster 2021-05- No [id number] .5mL 0.5 mL by Univers vaccine, 0-05 03- 9104 Intramuscu ity of recombinant 00:00: 04:59 lar route [place] (SHINGRIX, 00 :00 once now Medic al PF,) for 1 Branch injection dose. And repeat in 2-6 months zoster 2021-05- No [id number] .5mL 0.5 mL by Univers vaccine, 0- 9104 Intramuscu ity of recombinant 00:00: 04:59 lar route [place] (SHINGRIX, 00 :00 once now Medic al PF,) for 1 Branch injection dose. And repeat in 2-6 months hydralAZINE Yes 25mg Take 25 mg Univers (APRESOLINE 9- by mouth ity of ) 25 mg 19:28: daily. [place] tablet 04 Medical Branch lisinopril Yes 40mg Take 40 mg U nivers (PRINIVIL,Z 9 by mouth 2 it y of ESTRIL) [...] 1mg Take 1 mg Un matt (KLONOPIN) - by mouth ity o f 1 mg tablet 19:28: at [place] 04 bedtime. Medical Branch traZODone 2022-0 Yes 50mg Take 50 mg Un matt 100 mg 9-27 by mouth ity of tablet 19:28: at [place] [address] bedtime. Medical Branch hydralAZINE 2-0 Yes 25mg [...] o f 1 mg tablet 19:28: at [place] [address] bedtime. Medical Branch traZODone 2021-0 Yes 50mg Take 50 mg Un matt 100 mg 9-27 by mouth ity of tablet 19:28: at [place] [address] bedtime. Medical Branch hydralAZINE 2021-0 Yes 25mg [...] daily. [place] tablet 04 Medical Branch clonazePAM 2-0 Yes 1mg Take 1 mg Un matt (KLONOPIN) 9-27 by mouth ity o f 1 mg tablet 19:28: at [place] [address] bedtime. Medical Branch traZODone 2021-0 Yes 50mg Take 50 mg Un matt 100 mg 9-27 by mouth ity of tablet 19:28: at [place] [address] bedtime. Medical Branch hydralAZINE 2021-0 Yes 25mg [...] o f 1 mg tablet 19:28: at [place] [address] bedtime. Medical Branch traZODone 2021-0 Yes 50mg Take 50 mg Un matt 100 mg 9-27 by mouth ity of tablet 19:28: at [place] [address] bedtime. Medical Branch hydralAZINE 2021-0 Yes 25mg [...] o f 1 mg tablet 19:28: at [place] [address] bedtime. Medical Branch traZODone 2021-0 Yes 50mg Take 50 mg Un matt 100 mg 9-27 by mouth ity of tablet 19:28: at [place] [address] bedtime. Medical Branch hydralAZINE 2021-0 Yes 25mg [...] o f 1 mg tablet 19:28: at [place] [address] bedtime. Medical Branch traZODone 2021-0 Yes 50mg Take 50 mg Un matt 100 mg 9- by mouth ity of tablet 19:28: at [place] [address] bedtime. Medical Branch hydralAZINE 2021-0 Yes 25mg [...] o f 1 mg tablet 19:28: at [place] [address] bedtime. Medical Branch traZODone 2-0 Yes 50mg Take 50 mg Un matt 100 mg 9-27 by mouth ity of tablet 19:28: at [place] [address] bedtime. Medical Branch hydralAZINE 2021-0 Yes 25mg [...] 100 mg 04 (two) Medical tablet times [place] daily. amLODIPine 2021-0 Yes 10mg Take 10 mg U nivers (NORVASC) 9- by mouth ity of 10 mg 19:28: daily. [place] tablet 04 Medical Branch clonazePAM 2021-0 Yes 1mg Take 1 mg Un matt (KLONOPIN) 9-27 by mouth ity o f 1 mg tablet 19:28: at [place] [address] bedtime. Medical Branch traZODone 2-0 Yes 50mg Take 50 mg Un matt 100 mg 9-27 by mouth ity of tablet 19:28: at [place] [address] bedtime. Medical Branch hydralAZINE 2-0 Yes 25mg [...] o f 1 mg tablet 19:28: at [place] [address] bedtime. Medical Branch traZODone 2021-0 Yes 50mg Take 50 mg Un matt 100 mg 9-27 by mouth ity of tablet 19:28: at [place] [address] bedtime. Medical Branch hydralAZINE 2021-0 Yes 25mg [...] o f 1 mg tablet 19:28: at [place] [address] bedtime. Medical Branch traZODone 2021-0 Yes 50mg Take 50 mg Un matt 100 mg 9-27 by mouth ity of tablet 19:28: at [place] [address] bedtime. Medical Branch hydralAZINE 2021-0 Yes 25mg [...] 100 mg 04 (two) Medical tablet times [place] daily. amLODIPine Yes 10mg Take 10 mg U nivers (NORVASC) 9- by mouth ity of 10 mg 19:28: daily. [place] tablet 04 Medical Branch clonazePAM Yes 1mg Take 1 mg Un matt (KLONOPIN) 02-16 by mouth ity o f 1 mg tablet 19:28: at [place] [address] bedtime. Medical Branch traZODone Yes 50mg Take 50 mg Un matt 100 mg 02-16 by mouth ity of tablet 19:28: at [place] [address] bedtime. Medical Branch cefpodoxime 2021- Yes [id number] 200mg Take 1 Univers 200 mg -02-20 tablet by ity of tablet 00:00: 04:59 mouth in [place] 00 :00 the Medical morning Branch and 1 tablet in the evening. Do all this for 3 days. cefpodoxime 2021- Yes [id number] 200mg Take 1 Univers 200 mg -27 - tablet by ity of tablet 00:00: 04:59 mouth in [place] 00 :00 the Medical morning Branch and [...] First dose [place] mg 00 on [facility] 02/13/22 at Branch 1200, Until Discontinu ed, Routine tiZANidine Yes 4mg 4 mg, Univer s (ZANAFLEX) 02-12 Oral, Q8H, ity of tablet 4 mg 19:00: First dose [place] 00 on Tue [facility] 02/12/22 at Branch 1400, Until Discontinu ed, Routine HYDROmorpho Yes 4mg 4 mg, Unive rs ne 02-12 Oral, ity of (DILAUDID) 17:37: Q6HPRN, [place] tablet 4 mg 07 Starting [facility] porfirio on Tue [place] 02/12/22 at 1237, Until Discontinu ed, Routine, Pain (scale 4-6) morpHINE (2 2021- No 2mg 2 mg, Slow Univers mg/mL) 02-12 IV Push, ity of injection 2 17:36: 20:36 Q6HPRN, [place] mg 46 :24 Starting Medical on Tue [place] 02/12/22 at 1236, Until 02/14/22 at 1536, Routine, Pain (scale 7-10) cefTRIAXone 202- No 2000mg 2,000 mg, Univers (ROCEPHIN) 02-12 IV ity of 2,000 mg in 17:00: 18:24 Piggyback, [place] NaCl 0.9% 00 :00 Q24H ABX, Medic [...] at 0900, Until Discontinu ed, Routine SERTraline 0 Yes 200mg 200 mg, Uni vers (ZOLOFT) [...] Yes .1mg 0.1 mg, Unive rs (CATAPRES) 9-22 Oral, ity of tablet 0.1 21:18: TIDPRN, [place] mg 37 Starting Medical on [facility] Branch 02/11/22 at 1618, Until Discontinu ed, Routine, SBP > 170 nystatin-tr 2021-0 Yes Topical, Un matt iamcinolone 02-11 TID, First it y of (MYCOLOG) 19:00: dose on [place] cream 00 [facility] Medical 02/11/22 at Branch 1400, Until Discontinu ed, Routine busPIRone 2021-0 Yes 30mg 30 mg, Univer s (BUSPAR) 02-11 Oral, BID, ity o f tablet 30 18:00: First dose [place] mg 00 on [facility] Medical 02/11/22 at Branch 1300, Until Discontinu [...] First dose [place] tablet 100 00 on [facility] Medical mg 02/11/22 at Branch 1300, Until Discontinu ed, Routine lisinopriL 2021-0 Yes 40mg 40 mg, Unive rs (PRINIVIL,Z 02-11 Oral, BID, it y of ESTRIL) 18:00: First dose [place] tablet 40 00 on [facility] Medical mg 02/11/22 at Branch 1300, Until Discontinu ed, Routine emtricitabi 2021-0 Yes 1{tbl} 1 tablet, [facility] ne-tenofovi 02-11 Oral, ity of r alafen 18:00: DAILY, [place] (DESCOVY) 00 First dose Medi porfirio tablet 1 on [facility] tablet 02/11/22 at 1300, Until Discontinu ed, Routine ipratropium 2021-0 Yes .5mg 0.5 mg, Uni vers (ATROVENT) 02-11 Inhalation ity of 0.02 % 17:57: , QIDPRN, [place] nebulizer 10 Starting Medica l solution on [facility] Branch 0.5 mg 02/11/22 at 1257, Until Discontinu ed, Routine, Wheezing, Shortness of Breath amLODIPine Yes 10mg 10 mg, Unive rs (NORVASC) 02-11 Oral, ity of tablet 10 17:30: DAILY, [place] mg 00 First dose Medical (after Branch last modificati on) on [facility] 02/11/22 at 1230, Until Discontinu ed, Routine hydrALAZINE 2021- No 25mg 25 mg, Uni vers (APRESOLINE 02-11 Oral, ity of ) tablet 25 17:30: 12:54 DAILY, [place] mg 00 :55 First dose Medical (after Branch last modificati on) on [facility] 02/11/22 at 1230, Until Discontinu ed, Routine HYDROcodone 2021- No 1{tbl} 1 tablet, Univers -acetaminop 02-11 Oral, ity of hen (NORCO 14:11: 17:37 Q6HPRN, [place] 5) 5-325 mg 03 :24 Starting Medi porfirio tablet 1 on [facility] Branch tablet 02/11/22 at 0911, Until Tue02/12/22 at 1237, Routine, Pain (scale 7-10) melatonin Yes 3mg 3 mg, Univers (MELATIN) 02-11 Oral, ity of tablet 3 mg 14:08: QHSPRN, [place] 17 Starting Medical on [facility] Branch 02/11/22 at 0908, Until Discontinu ed, Routine, Insomnia acetaminoph 2021- No 1{tbl} 1 tablet, Univers en-codeine 02-11 Oral, ity of (TYLENOL 14:06: 17:37 Q6HPRN, [place] #3) 300-30 19 :24 Starting Medic al mg tablet 1 on [facility] Branch tablet 02/11/22 at 0906, Until Tue02/12/22 at 1237, Routine, Pain (scale 4-6) sennosides- Yes 1{tbl} 1 tablet, Univers docusate 02-11 Oral, ity of sodium 14:06: QDAILYPRN, [place] (SENOKOT-S) 09 Starting Medi porfirio 8.6-50 mg on [facility] per tablet 02/11/22 at 1 tablet 0906, Until Discontinu ed, Routine, Constipati on ondansetron 0 Yes 4mg 4 mg, Slow Univers (ZOFRAN 02-11 IV Push, ity of (PF)) 14:05: Q6HPRN, [place] injection 4 59 Starting Medi porfirio mg on [place] [facility] 02/11/22 at 0905, Until Discontinu ed, Routine, Nausea and Vomiting (N/V) acetaminoph 2021-0 Yes 650mg 650 mg, Un matt en 02-11 Oral, ity of (TYLENOL) 14:04: Q6HPRN, [place] tablet 650 37 Starting Medic al mg [...] ity of ) 25 mg 09:10: daily. [address] amLODIPine 0 Yes 10mg Take 10 mg U nivers (NORVASC) 02-11 by mouth ity of 10 mg 09:10: daily. [address] Branch piperacilli 2021-0 202- No 3.375g [...] of therapy: 72 hours iopamidol 2021- No [id number] 60mL 60 mL, Univers (ISOVUE 02-11 Intravenou [...] [place] 02/11/22 at 0015, JOE emtricitabi 0 Yes [id number] Take one Univers ne-tenofovi 9-12 po daily ity of r alafen 00:00: [place] (DESCOVY) 00 Medical tablet Branch emtricitabi 0 Yes [id number] Take one Univers ne-tenofovi 9-12 po daily ity of r alafen 00:00: [place] (DESCOVY) 00 Medical tablet Branch emtricitabi 0 Yes [id number] Take one Univers ne-tenofovi 9-12 po daily ity of r alafen 00:00: [place] (DESCOVY) 00 Medical tablet Branch emtricitabi Yes [id number] Take one Univers ne-tenofovi 9-12 po daily ity of r alafen 00:00: [place] (DESCOVY) 00 Medical tablet Branch emtricitabi Yes [id number] Take one Univers ne-tenofovi 9-12 po daily ity of r alafen 00:00: [place] (DESCOVY) 00 Medical tablet Branch emtricitabi Yes [id number] Take one Univers ne-tenofovi 9-12 po daily ity of r alafen 00:00: [place] (DESCOVY) 00 Medical tablet Branch emtricitabi Yes [id number] Take one Univers ne-tenofovi 9-12 po daily ity of r alafen 00:00: [place] (DESCOVY) 00 Medical tablet Branch emtricitabi Yes [id number] Take one Univers ne-tenofovi 9-12 po daily ity of r alafen 00:00: [place] (DESCOVY) 00 Medical tablet Branch emtricitabi Yes [id number] Take one Univers ne-tenofovi 9-12 po daily ity of r alafen 00:00: [place] (DESCOVY) 00 Medical tablet Branch emtricitabi Yes [id number] Take one Univers ne-tenofovi 9-12 po daily ity of r alafen 00:00: [place] (DESCOVY) 00 Medical tablet Branch emtricitabi Yes [id number] Take one Univers ne-tenofovi 9-12 po daily ity of r alafen 00:00: [place] (DESCOVY) 00 Medical tablet Branch emtricitabi Yes [id number] Take one Univers ne-tenofovi 9-12 po daily ity of r alafen 00:00: [place] (DESCOVY) 00 Medical tablet Branch naproxen Yes [id number] 500mg Take 1 U nivers (NAPROSYN) 7-24 tablet by ity of 500 mg 00:00: mouth in [place] tablet 00 the Medical morning Branch and 1 tablet in the evening. Take with meals. methocarbam Yes [id number] 500mg Take 1 Univers oL 500 mg 7-24 tablet by ity o f tablet 00:00: mouth 4 [place] ([facility]) Medical times [place] daily. naproxen 2022-0 Yes [id number] 500mg Take 1 U nivers (NAPROSYN) 7-24 tablet by ity of 500 mg 00:00: mouth in [place] tablet 00 the Medical morning Branch and 1 tablet in the evening. Take with meals. methocarbam 2-0 Yes [id number] 500mg Take 1 Univers oL 500 mg 7-24 tablet by ity o f tablet 00:00: mouth 4 [place] 00 ([facility]) Medical times [place] daily. naproxen 2022-0 Yes [id number] 500mg Take 1 U nivers (NAPROSYN) 7-24 tablet by ity of 500 mg 00:00: mouth in [place] tablet 00 the Medical morning Branch and 1 tablet in the evening. Take with meals. methocarbam 2-0 Yes [id number] 500mg Take 1 Univers oL 500 mg 7-24 tablet by ity o f tablet 00:00: mouth 4 [place] [address] ([facility] times [place] daily. naproxen 2021-0 2- No [id number] 500mg Take 1 Univers (NAPROSYN) 7-24 10-14 tablet by ity of 500 mg 00:00: 00:00 mouth in [place] tablet 00 :00 the [facility] morning Branch and 1 tablet in the evening. Take with meals. methocarbam 2-0 2- No [id number] 500mg Take 1 Univers oL 500 mg 7-24 10-14 tablet by ity of tablet 00:00: 00:00 mouth 4 [place] 00 :00 ([facility]) [facility] times [place] daily. naproxen 2-0 2022- No [id number] 500mg Take 1 Univers (NAPROSYN) 7-24 10-14 tablet by ity of 500 mg 00:00: 00:00 mouth in [place] tablet 00 :00 the Medical morning Branch and 1 tablet in the evening. Take with meals. methocarbam 2-0 2022- No [id number] 500mg Take 1 Univers oL 500 mg 7-24 10-14 tablet by ity of tablet 00:00: 00:00 mouth 4 [place] 00 :00 ([facility]) Medical times [place] daily. esomeprazol 2-0 2022- No 40mg Take 40 mg Univers e [...] daily. Branch traZODONE 2021- No Take by [facility] ers (DESYREL) 11-20 mouth at ity o f 10 mg/mL 09:10: 00:00 bedtime. [place] oral 28 :00 Medical suspension Branch hydralAZINE Yes 25mg Take 25 mg Univers (APRESOLINE 11-20 by mouth ity of ) 25 mg 08:47: daily. [place] tablet 47 Medical Branch cephALEXin 2021- No [id number] 500mg Take 1 Univers (KEFLEX) 10-24 capsule [...] 7-10). Indication s: acute pain buPROPion Yes [id number] 150mg Take 1 U nivers XL 4-12 tablet by ity of (WELLBUTRIN 00:00: mouth [place] XL) 150 mg 00 daily. Medical 24 hr Branch tablet busPIRone Yes [id number] 30mg Take 1 Un matt 30 mg 4-12 tablet by ity of tablet 00:00: mouth 2 [place] 00 (two) Medical times Branch daily. SERTraline Yes [id number] 200mg Take 2 Univers 100 mg 4-12 tablets by ity of tablet 00:00: mouth [place] 00 daily. Medical Branch buPROPion 2021-0 Yes [id number] 150mg Take 1 U nivers XL 4-12 tablet by ity of (WELLBUTRIN 00:00: mouth [place] XL) 150 mg 00 daily. Medical 24 hr Branch tablet busPIRone 2021-0 Yes [id number] 30mg Take 1 Un matt 30 mg 4-12 tablet by ity of tablet 00:00: mouth 2 [place] 00 (two) Medical times Branch daily. SERTraline 0 Yes [id number] 200mg Take 2 Univers 100 mg 4-12 tablets by ity of tablet 00:00: mouth [place] 00 daily. Medical Branch buPROPion 0 Yes [id number] 150mg Take 1 U nivers XL 4-12 tablet by ity of (WELLBUTRIN 00:00: mouth [place] XL) 150 mg 00 daily. Medical 24 hr Branch tablet busPIRone 0 Yes [id number] 30mg Take 1 Un matt 30 mg 4-12 tablet by ity of tablet 00:00: mouth 2 [place] 00 (two) Medical times Branch daily. SERTraline 0 Yes [id number] 200mg Take 2 [facility] 100 mg 4-12 tablets by ity of tablet 00:00: mouth [place] 00 daily. Medical Branch buPROPion 0 Yes [id number] 150mg Take 1 U nivers XL 4-12 tablet by ity of (WELLBUTRIN 00:00: mouth [place] XL) 150 mg 00 daily. Medical 24 hr Branch tablet busPIRone 2021-0 Yes [id number] 30mg Take 1 Un matt 30 mg 4-12 tablet by ity of tablet 00:00: mouth 2 [place] 00 (two) Medical times Branch daily. SERTraline 0 Yes [id number] 200mg Take 2 [facility] 100 mg 4-12 tablets by ity of tablet 00:00: mouth [place] 00 daily. Medical Branch buPROPion 0 Yes [id number] 150mg Take 1 U nivers XL 4-12 tablet by ity of (WELLBUTRIN 00:00: mouth [place] XL) 150 mg 00 daily. Medical 24 hr Branch tablet busPIRone 2021-0 Yes [id number] 30mg Take 1 Un matt 30 mg 4-12 tablet by ity of tablet 00:00: mouth 2 [place] 00 (two) Medical times Branch daily. SERTraline 2021-0 Yes [id number] 200mg Take 2 [facility] 100 mg 4-12 tablets by ity of tablet 00:00: mouth [place] 00 daily. Medical Branch buPROPion 2021-0 Yes [id number] 150mg Take 1 U nivers XL 4-12 tablet by ity of (WELLBUTRIN 00:00: mouth [place] XL) 150 mg 00 daily. Medical 24 hr Branch tablet busPIRone 2021-0 Yes [id number] 30mg Take 1 Un matt 30 mg 4-12 tablet by ity of tablet 00:00: mouth 2 [place] 00 (two) Medical times Branch daily. SERTraline 2021-0 Yes [id number] 200mg Take 2 [facility] 100 mg 4-12 tablets by ity of tablet 00:00: mouth [place] 00 daily. Medical Branch buPROPion 2021-0 Yes [id number] 150mg Take 1 U nivers XL 4-12 tablet by ity of (WELLBUTRIN 00:00: mouth [place] XL) 150 mg 00 daily. Medical 24 hr Branch tablet busPIRone 2021-0 Yes [id number] 30mg Take 1 Un matt 30 mg 4-12 tablet by ity of tablet 00:00: mouth 2 [place] 00 (two) Medical times Branch daily. SERTraline 0 Yes [id number] 200mg Take 2 [facility] 100 mg 4-12 tablets by ity of tablet 00:00: mouth [place] 00 daily. Medical Branch buPROPion 2021-0 Yes [id number] 150mg Take 1 U nivers XL 4-12 tablet by ity of (WELLBUTRIN 00:00: mouth [place] XL) 150 mg 00 daily. Medical 24 hr Branch tablet busPIRone 2021-0 Yes [id number] 30mg Take 1 Un matt 30 mg 4-12 tablet by ity of tablet 00:00: mouth 2 [place] 00 (two) Medical times Branch daily. SERTraline 2021-0 Yes [id number] 200mg Take 2 [facility] 100 mg 4-12 tablets by ity of tablet 00:00: mouth [place] 00 daily. Medical Branch buPROPion 2021-0 Yes [id number] 150mg Take 1 U nivers XL 4-12 tablet by ity of (WELLBUTRIN 00:00: mouth [place] XL) 150 mg 00 daily. Medical 24 hr Branch tablet busPIRone 2021-0 Yes [id number] 30mg Take 1 Un matt 30 mg 4-12 tablet by ity of tablet 00:00: mouth 2 [place] 00 (two) Medical times Branch daily. SERTraline 2021-0 Yes [id number] 200mg Take 2 [facility] 100 mg 4-12 tablets by ity of tablet 00:00: mouth [place] 00 daily. Medical Branch buPROPion 2021-0 Yes [id number] 150mg Take 1 U nivers XL 4-12 tablet by ity of (WELLBUTRIN 00:00: mouth [place] XL) 150 mg 00 daily. Medical 24 hr Branch tablet busPIRone 2021-0 Yes [id number] 30mg Take 1 Un matt 30 mg 4-12 tablet by ity of tablet 00:00: mouth 2 (two) Medical times Branch daily. SERTraline 2021-0 Yes [id number] 200mg Take 2 [facility] 100 mg 4-12 tablets by ity of tablet 00:00: mouth [place] 00 daily. Medical Branch buPROPion 2021-0 Yes [id number] 150mg Take 1 U nivers XL 4-12 tablet by ity of (WELLBUTRIN 00:00: mouth [place] XL) 150 mg 00 daily. Medical 24 hr Branch tablet busPIRone 2021-0 Yes [id number] 30mg Take 1 Un matt 30 mg 4-12 tablet by ity of tablet 00:00: mouth 2 00 (two) Medical times Branch daily. SERTraline 2021-0 Yes [id number] 200mg Take 2 [facility] 100 mg 4-12 tablets by ity of tablet 00:00: mouth [place] 00 daily. Medical Branch buPROPion 2021-0 Yes [id number] 150mg Take 1 U nivers XL 4-12 tablet by ity of (WELLBUTRIN 00:00: mouth [place] XL) 150 mg 00 daily. Medical 24 hr Branch tablet busPIRone 2021-0 Yes [id number] 30mg Take 1 Un matt 30 mg 4-12 tablet by ity of tablet 00:00: mouth 2 00 (two) Medical times Branch daily. SERTraline 2021-0 Yes [id number] 200mg Take 2 [facility] 100 mg 4-12 tablets by ity of tablet 00:00: mouth [place] 00 daily. Medical Branch buPROPion 2021-0 Yes [id number] 150mg Take 1 U nivers XL 4-12 tablet by ity of (WELLBUTRIN 00:00: mouth [place] XL) 150 mg 00 daily. Medical 24 hr Branch tablet busPIRone 2021-0 Yes [id number] 30mg Take 1 Un matt 30 mg 4-12 tablet by ity of tablet 00:00: mouth 2 [place] 00 (two) Medical times Branch daily. SERTraline 2021-0 Yes [id number] 200mg Take 2 [facility] 100 mg 4-12 tablets by ity of tablet 00:00: mouth [place] 00 daily. Medical Branch raltegravir 2021-0 Yes [id number] 400mg Take 1 [facility] (ISENTRESS) 3-28 tablet by ity of 400 mg 00:00: mouth 2 [place] tablet 00 (two) Medical times Branch daily. raltegravir 2021-0 Yes [id number] 400mg Take 1 [facility] (ISENTRESS) 3-28 tablet by ity of 400 mg 00:00: mouth 2 [place] tablet 00 (two) Medical times Branch daily. raltegravir 2021-0 Yes [id number] 400mg Take 1 [facility] (ISENTRESS) 3-28 tablet by ity of 400 mg 00:00: mouth 2 [place] tablet 00 (two) Medical times Branch daily. raltegravir 2021-0 Yes [id number] 400mg Take 1 [facility] (ISENTRESS) 3-28 tablet by ity of 400 mg 00:00: mouth 2 [place] tablet 00 (two) Medical times Branch daily. raltegravir 2021-0 Yes [id number] 400mg Take 1 [facility] (ISENTRESS) 3-28 tablet by ity of 400 mg 00:00: mouth 2 [place] tablet 00 (two) Medical times Branch daily. raltegravir 2021-0 Yes [id number] 400mg Take 1 [facility] (ISENTRESS) 3-28 tablet by ity of 400 mg 00:00: mouth 2 [place] tablet 00 (two) Medical times Branch daily. raltegravir 2021-0 Yes [id number] 400mg Take 1 [facility] (ISENTRESS) 3-28 tablet by ity of 400 mg 00:00: mouth 2 [place] tablet 00 (two) Medical times Branch daily. raltegravir 2021-0 Yes [id number] 400mg Take 1 [facility] (ISENTRESS) 3-28 tablet by ity of 400 mg 00:00: mouth 2 [place] tablet 00 (two) Medical times Branch daily. raltegravir 2021-0 Yes [id number] 400mg Take 1 [facility] (ISENTRESS) 3-28 tablet by ity of 400 mg 00:00: mouth 2 [place] tablet 00 (two) Medical times Branch daily. raltegravir 2021-0 Yes [id number] 400mg Take 1 [facility] (ISENTRESS) 3-28 tablet by ity of 400 mg 00:00: mouth 2 [place] tablet 00 (two) Medical times Branch daily. raltegravir 0 Yes [id number] 400mg Take 1 [facility] (ISENTRESS) 3-28 tablet by ity of 400 mg 00:00: mouth 2 [place] tablet 00 (two) Medical times Branch daily. raltegravir Yes [id number] 400mg Take 1 [facility] (ISENTRESS) 3-28 tablet by ity of 400 mg 00:00: mouth 2 [place] tablet 00 (two) Medical times Branch daily. raltegravir Yes [id number] 400mg Take 1 [facility] (ISENTRESS) 3-28 tablet by ity of 400 mg 00:00: mouth 2 [place] tablet 00 (two) Medical times Branch daily. LORazepam 1 2021- No [id number] 1mg Take 1 [facility] mg tablet 3-10 [...] times a tablet day. emtricitabi 2021- No [id number] Take one [facility] ne-tenofovi -20 09-12 po daily ity of r alafen 00:00: 00:00 [place] (DESCOVY) 00 :00 Medical tablet Branch metoprolol Yes [id number] Take 1 [facility] tartrate 7-26 tablet [facility] (Lopressor) 00:00: (100 mg 100 MG 00 total) by tablet mouth 2 (two) times a day AND 0.5 tablets (50 mg total) every night. metoprolol Yes [id number] Take 1 [facility] tartrate 7-26 tablet [facility] [...] (affected area in groin) hydrALAZINE Yes 50mg Q.[id number] Take 50 mg [facility] (APRESOLINE 7-19 [id number] [facility] ) 50 MG [...] area in groin) hydrALAZINE 2020-0 Yes 50mg Q.[id number] Take 50 mg [facility] (APRESOLINE 7-19 [id number] [facility] mouth [facility] ) 50 MG [...] (affected area in groin) hydrALAZINE Yes 50mg Q.[id number] Take 50 mg [facility] (APRESOLINE 7-19 [id number] [address] mouth [facility] ) 50 MG [...] area in groin) hydrALAZINE 0 Yes 50mg Q.[id number] Take 50 mg [facility] (APRESOLINE 7-19 [id number] mouth [facility] ) 50 MG [...] area in groin) hydrALAZINE 0 Yes 50mg Q.[id number] Take 50 mg [facility] (APRESOLINE 7-19 [id number] [facility] mouth [facility] ) 50 MG [...] (affected area in groin) hydrALAZINE Yes 50mg Q.[id number] Take 50 mg [facility] (APRESOLINE 7-19 [id number] [address] mouth [facility] ) 50 MG [...] (affected area in groin) hydrALAZINE Yes 50mg Q.[id number] Take 50 mg [facility] (APRESOLINE 7-19 [id number] mouth [facility] ) 50 MG [...] area in groin) hydrALAZINE 0 Yes 50mg Q.[id number] Take 50 mg [facility] (APRESOLINE 7-19 [id number] [facility] mouth [facility] ) 50 MG [...] area in groin) hydrALAZINE 0 Yes 50mg Q.[id number] Take 50 mg [facility] (APRESOLINE 7-19 [id number] mouth [facility] ) 50 MG [...] (affected area in groin) hydrALAZINE Yes 50mg Q.[id number] Take 50 mg [facility] (APRESOLINE 7-19 [id number] mouth 3 [facility] ) 50 MG [...] area in groin) hydrALAZINE 0 Yes 50mg Q.[id number] Take 50 mg [facility] (APRESOLINE 7-19 [id number] [facility] mouth [facility] ) 50 MG [...] area in groin) hydrALAZINE 0 Yes 50mg Q.[id number] Take 50 mg [facility] (APRESOLINE 7-19 [id number] [facility] mouth [facility] ) 50 MG [...] (affected area in groin) hydrALAZINE Yes 50mg Q.[id number] Take 50 mg [facility] (APRESOLINE 7-19 [id number] [facility] mouth [facility] ) 50 MG [...] area in groin) hydrALAZINE 0 Yes 50mg Q.[id number] Take 50 mg [facility] (APRESOLINE 7-19 [id number] [address] mouth [facility] ) 50 MG [...] area in groin) hydrALAZINE 0 Yes 50mg Q.[id number] Take 50 mg [facility] (APRESOLINE 7-19 [id number] [address] mouth [facility] ) 50 MG [...] (affected area in groin) hydrALAZINE Yes 50mg Q.[id number] Take 50 mg [facility] (APRESOLINE 7-19 [id number] [address] mouth [facility] ) 50 MG [...] area in groin) hydrALAZINE 0 Yes 50mg Q.[id number] Take 50 mg [facility] (APRESOLINE 7-19 [id number] [facility] ) 50 MG [...] area in groin) hydrALAZINE 0 Yes 50mg Q.[id number] Take 50 mg [facility] (APRESOLINE 7-19 [id number] [address] [facility] ) 50 MG [...] (affected area in groin) hydrALAZINE Yes 50mg Q.[id number] Take 50 mg [facility] (APRESOLINE 7-19 [id number] mouth [facility] ) 50 MG [...] (affected area in groin) hydrALAZINE Yes 50mg Q.[id number] Take 50 mg [facility] (APRESOLINE 7-[id number] mouth [facility] ) 50 MG [...] area in groin) hydrALAZINE 0 Yes 50mg Q.[id number] Take 50 mg [facility] (APRESOLINE 7-19 [id number] [address] mouth [facility] [address] ) 50 MG [...] area in groin) hydrALAZINE 0 Yes 50mg Q.[id number] Take 50 mg [facility] (APRESOLINE 7-[id number] mouth [facility] ) 50 MG [...] (affected area in groin) hydrALAZINE Yes 50mg Q.[id number] Take 50 mg [facility] (APRESOLINE 7-19 [id number] mouth [facility] [address] ) 50 MG [...] area in groin) hydrALAZINE 0 Yes 50mg Q.[id number] Take 50 mg [facility] (APRESOLINE 7-[id number] mouth [facility] [address] ) 50 MG [...] area in groin) hydrALAZINE 0 Yes 50mg Q.[id number] Take 50 mg [facility] (APRESOLINE 7-[id number] mouth [facility] [address] ) 50 MG [...] (affected area in groin) hydrALAZINE Yes 50mg Q.[id number] Take 50 mg [facility] (APRESOLINE 7-19 [id number] [address] mouth [facility] ) 50 MG [...] area in groin) hydrALAZINE 0 Yes 50mg Q.[id number] Take 50 mg [facility] (APRESOLINE 7-19 [id number] mouth [facility] ) 50 MG [...] [facility] tablet 25 l nystatin-tr 2020-0 Yes [id number] Apply to [facility] iainolone 7-06 area(s) 3 ity of cream 00:00: (three) [place] 00 times Medical daily. Branch nystatin-tr 2020-0 Yes [id number] Apply to [facility] iamcinolone 7-06 area(s) 3 ity of cream 00:00: (three) [place] 00 times Medical daily. Branch nystatin-tr 2020-0 Yes [id number] Apply to [facility] iainolone 7-06 area(s) 3 ity of cream 00:00: (three) [place] 00 times Medical daily. Branch nystatin-tr 202-0 Yes [id number] Apply to [facility] iainolone 7-06 area(s) 3 ity of cream 00:00: (three) [place] 00 times Medical daily. Branch nystatin-tr 2021-0 Yes [id number] Apply to [facility] iamcinolone 7-06 area(s) 3 ity of cream 00:00: (three) [place] 00 times Medical daily. Branch nystatin-tr 2021-0 Yes [id number] Apply to [facility] iamcinolone 7-06 area(s) 3 ity of cream 00:00: (three) [place] 00 times Medical daily. Branch nystatin-tr 2021-0 Yes [id number] Apply to [facility] iamcinolone 7-06 area(s) 3 ity of cream 00:00: (three) [place] 00 times Medical daily. Branch nystatin-tr 2021-0 Yes [id number] Apply to [facility] iamcinolone 7-06 area(s) 3 ity of cream 00:00: (three) [place] 00 times Medical daily. Branch nystatin-tr 2021-0 Yes [id number] Apply to [facility] iamcinolone 7-06 area(s) 3 ity of cream 00:00: (three) [place] 00 times Medical daily. Branch nystatin-tr 2021-0 Yes [id number] Apply to [facility] iamcinolone 7-06 area(s) 3 ity of cream 00:00: (three) [place] 00 times Medical daily. Branch nystatin-tr 2021-0 Yes [id number] Apply to [facility] iamcinolone 7-06 area(s) 3 ity of cream 00:00: (three) [place] 00 times Medical daily. Branch nystatin-tr 2021-0 Yes [id number] Apply to [facility] iamcinolone 7-06 area(s) 3 ity of cream 00:00: (three) [place] 00 times Medical daily. Branch nystatin-tr 2021-0 Yes [id number] Apply to [facility] iamcinolone 7-06 area(s) 3 ity of cream 00:00: (three) [place] 00 times Medical daily. Branch budesonide- 2020-0 2020- No 1{puff} QD Inhale 1 [facility] formoteroL 6-25 06-[address] (SYMBICORT) 14:37: 00:00 morning. H ospita 160-4.5 02 :00 l mcg/actuati on inhaler hydrALAZINE 0 Yes [id number] 50mg Q.[id number] Take 1 [facility] (Apresoline 6-11 [id number] tablet (50 Health ) 50 MG 00:00: 3D mg total) tablet 00 by mouth 3 (three) times a day. hydrALAZINE 0 Yes [id number] 50mg Q.[id number] Take 1 [facility] (Apresoline 6-11 [id number] tablet (50 Health ) 50 MG 00:00: [...] 00:00: ointment 00 nystatin 2020-0 2021- No [id number] Q.25D Take 5 mL [facility] (MYCOSTATIN 5-17 10-21 (500,000 st ) 100,000 00:00: 04:59 [...] ia 4-10 (Same as: l 14:00: Cordarone) [place] 00 Amlodipine No Notes: Memor ia 4-10 [...] e 4-10 Tablet l 14:00: should not [place] 00 be chewed or crushed. (Same as: [...] ia 4-10 (Same as: l 14:00: Cordarone) [place] Amlodipine No Notes: Memor ia 4-10 (Same as: l 14:00: Norvasc) [place] emtricitabi No Notes: Caesar lisa ne 200 MG / 4-10 (Same as: l tenofovir 14:00: Descovy) Herm ariel alafenamide 00 Non-formul 25 MG Oral nancy Tablet [Descovy] Sertraline No Notes: Memor ia 4-10 (Same as: l 14:00: Zoloft) [place] 00 pantoprazol No Notes: Caesar lisa e 4-10 Tablet l 14:00: should not [place] 00 be chewed or crushed. (Same as: Protonix) Amiodarone No Notes: Memor ia 4-10 (Same as: l 14:00: Cordarone) [place] Amlodipine No Notes: Memor ia 4-10 (Same as: l 14:00: Norvasc) [place] 00 emtricitabi No Notes: Caesar lisa ne 200 MG / 4-10 (Same as: l tenofovir 14:00: Descovy) Herm ariel alafenamide 00 Non-formul 25 MG Oral nancy Tablet [Descovy] Sertraline No Notes: Memor ia 4-10 (Same as: l 14:00: Zoloft) [place] 00 pantoprazol No Notes: Caesar lisa e 4-10 Tablet l 14:00: should not [place] 00 be chewed or crushed. (Same as: [...] e 4-10 Tablet l 14:00: should not [place] 00 be chewed or crushed. (Same as: Protonix) Amiodarone No Notes: Memor ia 4-10 (Same as: l 14:00: Cordarone) Sucralfate No Notes: May M emoria 4-10 interfere l 02:00: w/enteral [place] feeds - Take 1 hr before or [...] Memoria 4-10 Same as: l 02:00: Eliquis [place] Hydralazine No Notes: Caesar lisa Hydrochlori 4-10 (Same as: l de 50 MG 02:00: Apresoline Her mitchell Oral Tablet 00 ) May interfere w/enteral feedings Take With Food Sucralfate No Notes: May M emoria 4-10 interfere l 02:00: w/enteral [place] 00 feeds - Take 1 hr before [...] 0.9% 4-10 (Same as: l 02:00: BD [place] Posiflush) Eliquis No Notes: Memoria 4-10 Same as: l 02:00: Eliquis [place] 00 Hydralazine No Notes: Caesar lisa Hydrochlori [...] Memoria 4-10 Same as: l 02:00: Eliquis [place] Hydralazine No Notes: Caesar lisa Hydrochlori 4-10 (Same as: l de 50 MG 02:00: Apresoline Her mit[place] Oral Tablet 00 ) May interfere w/enteral feedings Take With Food Sucralfate No Notes: May M emoria 4-10 interfere l 02:00: w/enteral [place] 00 feeds - Take 1 hr before [...] 0.9% 4-10 (Same as: l 02:00: BD [place] 00 Posiflush) Eliquis No Notes: Memoria 4-10 Same as: l 02:00: Eliquis Hydralazine No Notes: Caesar lisa Hydrochlori 4-10 (Same as: l de 50 MG 02:00: Apresoline Her [place] Oral Tablet 00 ) May interfere w/enteral feedings Take With Food Sucralfate No Notes: May M emoria 4-10 interfere l 02:00: w/enteral [place] 00 feeds - Take 1 hr before [...] not exceed l #3 00:12: 4gm/day of [place] acetaminop hen. (Same as: Tylenol with Codeine # 3) acetaminoph No Notes: Do M emoria en-codeine 4-10 not exceed l #3 00:12: 4gm/day of [place] acetaminop hen. (Same as: Tylenol with Codeine # 3) acetaminoph No Notes: Do M emoria en-codeine 4-10 not exceed l #3 00:12: 4gm/day of [place] acetaminop hen. (Same as: Tylenol with Codeine # 3) Buspirone No Notes: Memori a 08-29 (Same As: l 22:00: BuSpar) Lisinopril No 40 mg, 1 Mem oria - tab, l 22:00: Route: PO, [place] Drug form: TAB, BID, Dosing Weight 97.273, [...] tab, l Tablet 22:00: Route: PO, Skylar [[facility]] Drug form: TAB, BID, Dosing Weight 97.273, kg, Start date: 08/29/20 17:00:00 CDT, Duration: 30 day, Stop date: 09/28/20 9:00:00 CDT, 0 Buspirone No Notes: Memori a 08-29 (Same As: l 22:00: BuSpar) Lisinopril 2021-0 No 40 mg, 1 Mem oria 4-09 tab, l 22:00: Route: PO, [place] 00 Drug form: TAB, BID, Dosing Weight 97.273, kg, Start date: 08/29/20 17:00:00 CDT, Duration: 30 day, Stop date: 09/28/20 9:00:00 CDT metoprolol 2021-0 No 100 mg, 1 Me moria tartrate 4-09 tab, l 22:00: Route: PO, [place] 00 Drug form: TAB, BID, Dosing Weight [...] tartrate 4-09 tab, l 22:00: Route: PO, [place] 00 Drug form: TAB, BID, Dosing Weight [...] oria 4-09 tab, l 22:00: Route: PO, [place] 00 Drug form: TAB, BID, Dosing Weight [...] oria 4-09 tab, l 22:00: Route: PO, [place] 00 Drug form: TAB, BID, Dosing Weight 97.273, kg, Start date: 08/29/20 17:00:00 CDT, Duration: 30 day, Stop date: 09/28/20 9:00:00 CDT metoprolol 1-0 No 100 mg, 1 Me moria tartrate 4-09 tab, l 22:00: Route: PO, [place] 00 Drug form: TAB, BID, Dosing Weight [...] Notes: Memoria 4-09 (Same l 17:07: as:MORPhin [place] 00 e Sulfate) Morphine No Notes: Memoria 4-09 (Same l 17:07: as:MORPhin [place] 00 e Sulfate) Morphine No Notes: Memoria 4-09 (Same l 17:07: as:MORPhin [place] 00 e Sulfate) Morphine No Notes: Memoria 4-09 (Same l 17:07: as:MORPhin [place] 00 e Sulfate) Morphine No Notes: Memoria 4-09 (Same l 17:07: as:MORPhin [place] 00 e Sulfate) Morphine No Notes: Memoria 4-09 (Same l 17:07: as:MORPhin [place] 00 e Sulfate) Morphine No Notes: Memoria [...] tab, PO, l oral 15:27: Daily, # [place] enteric 00 30 tab, 0 coated Refill(s), tablet Pharmacy: [facility] 149, 162.56, cm, 08/29/20 5:30:00 CDT, Height, 97.273, kg, 08/29/20 5:30:00 CDT, Weight pantoprazol 2021-0 Yes 40 mg = 1 M emoria e 40 mg 4-09 tab, PO, l oral 15:27: Daily, # [place] enteric 00 30 tab, 0 coated Refill(s), tablet Pharmacy: [facility] 149, 162.56, cm, 08/29/20 5:30:00 CDT, Height, 97.273, kg, 08/29/20 5:30:00 CDT, Weight pantoprazol 2020-0 Yes 40 mg = 1 M emoria e 40 mg 4-09 tab, PO, l oral 15:27: Daily, # [place] enteric 00 30 tab, 0 coated Refill(s), tablet Pharmacy: [facility] 149, 162.56, cm, 08/29/20 5:30:00 CDT, Height, 97.273, kg, 08/29/20 5:30:00 CDT, Weight pantoprazol 2020-0 Yes 40 mg = 1 M emoria e 40 mg 4-09 tab, PO, l oral 15:27: Daily, # [place] enteric 00 30 tab, 0 coated Refill(s), [...] tab, PO, l oral 15:26: Daily, # [place] enteric 00 30 tab, 0 coated Refill(s) [...] tab, PO, l oral 15:26: Daily, # [place] enteric 00 30 tab, 0 coated Refill(s) tablet sucralfate 2020-0 Yes 1 gm = 1 Mem oria 1 g oral 4-09 tab, PO, l tablet 15:26: Q12H, # 28 Skylar nn 00 tab, 0 Refill(s), Pharmacy: [place] [id number], 162.56, cm, 08/29/20 5:30:00 CDT, Height, 97.273, kg, 08/29/20 5:30:00 CDT, Weight pantoprazol 2020-0 No 40 mg = 1 M emoria e 40 mg 4-09 tab, PO, l oral 15:26: Daily, # [place] enteric 00 30 tab, 0 coated Refill(s) [...] tab, PO, l oral 15:26: Daily, # [place] enteric 00 30 tab, 0 coated Refill(s) [...] 0.9% 4-09 (Same as: l 15:25: BD [place] 00 Posiflush) Lorazepam No Notes: Memori a 4-09 (Same as: l 15:25: Ativan) [place] Saline No Notes: Memoria Flush 0.9% 4-09 (Same as: l 15:25: BD [place] 00 Posiflush) Lorazepam No Notes: Memori a 4-09 (Same as: l 15:25: Ativan) [place] Saline No Notes: Memoria Flush 0.9% 4-09 [...] 0.9% 4-09 (Same as: l 15:25: BD [place] 00 Posiflush) Lorazepam No Notes: Memori a [...] Drug form: l mg + 15:00: INJ, [place] 00 Dosing Weight 97.3, kg, Start date: [...] 08-29 Drug form: l 14:49: INJ, ONCE, [place] 00 Stop date: 08/29/20 9:49:00 CDT heparin 2020-0 No Route: IV, Caesar lisa (ANES) 08-29 Drug form: l 14:49: INJ, ONCE, [place] 00 Stop date: 08/29/20 9:49:00 CDT heparin 202-0 No Route: IV, Caesar lias (ANES) 08-29 Drug form: l 14:49: INJ, [...] 08-29 Drug form: l 14:29: INJ, ONCE, [place] 00 Stop date: 08/29/20 9:29:00 CDT propofol [...] oria ne 08-29 Route: l 14:01: IVP, [place] 00 Q5Min, Dosing Weight 97.273, kg, PRN Pain Score 7-10, Start date: 08/29/20 9:01:00 CDT, Duration: 4 doses or times, Stop date: Limited # of times Flumazenil 2020-0 No 0.2 mg, Caesar lisa 08-29 Route: l 14:01: IVP, PRN, [place] 00 Dosing Weight 97.273, kg, PRN Benzodiaze pine Reversal, Initial dose, Start date: 08/29/20 9:01:00 CDT, Duration: 30 day, Stop date: 09/28/20 9:00:00 CDT Naloxone 1-0 No 0.4 mg, Memori a 08-29 Route: l 14:01: IVP, [place] 00 Q2MIN, Dosing Weight 97.273, kg, PRN [...] 08-29 Route: PO, l 14:01: Drug form: [place] 00 TAB, ONCE, Dosing Weight 97.273, kg, [...] lisa 08-29 Route: l 14:01: IVP, PRN, [place] 00 Dosing Weight 97.273, kg, PRN Benzodiaze [...] ia 08-29 Route: l 14:01: IVP, ONCE, [place] 00 Dosing Weight 97.273, kg, PRN Nausea [...] ia 08-29 Route: l 14:01: IVP, ONCE, [place] 00 Dosing Weight 97.273, kg, PRN Nausea & Vomiting, Start date: 08/29/20 9:01:00 CDT Labetalol 2021-0 No 10 mg, Memori a 08-29 Route: l 14:01: IVP, [place] 00 Q5Min, Dosing Weight 97.273, kg, PRN [...] oria ne 08-29 Route: l 14:01: IVP, [place] 00 Q5Min, Dosing Weight 97.273, kg, PRN [...] 08-29 Route: PO, l 14:01: Drug form: [place] 00 TAB, ONCE, Dosing Weight 97.273, kg, PRN Pain Score 1-3, Start date: 08/29/20 9:01:00 CDT Oxycodone 1-0 No 5 mg, Memoria Hydrochlori - Route: [...] lisa 08-29 Route: l 14:01: IVP, PRN, [place] 00 Dosing Weight 97.273, kg, PRN Benzodiaze [...] lisa 08-29 Route: l 14:01: IVP, PRN, [place] 00 Dosing Weight 97.273, kg, PRN Benzodiaze [...] Memori a 08-29 Route: l 14:01: IVP, [place] 00 Q2MIN, Dosing Weight 97.273, kg, PRN [...] 08-29 Route: PO, l 14:01: Drug form: [place] 00 TAB, ONCE, Dosing Weight 97.273, kg, [...] oria ne 08-29 Route: l 14:01: IVP, [place] 00 Q5Min, Dosing Weight 97.273, kg, PRN [...] Memori a 08-29 Route: l 14:01: IVP, [place] 00 Q2MIN, Dosing Weight 97.273, kg, PRN Narcotic Reversal, Start date: 08/29/20 9:01:00 CDT, Duration: 8 doses or times, Stop date: Limited # of times Ondansetron 1-0 No 4 mg, Memor ia 08-29 Route: l 14:01: IVP, ONCE, [place] 00 Dosing Weight 97.273, kg, PRN Nausea & Vomiting, Start date: 08/29/20 9:01:00 CDT Labetalol 1-0 No 10 mg, Memori a 08-29 Route: l 14:01: IVP, [place] 00 Q5Min, Dosing Weight 97.273, kg, PRN [...] ONCE, Stop date: 08/29/20 8:52:00 CDT dexamethaso 2020- No Route: IV, Memoria ne (ANES) 08-29 [...] 08-29 Drug form: l 13:42: INJ, ONCE, [place] Stop date: 08/29/20 8:42:00 CDT fentaNYL 2020-0 [...] Drug form: l 10 13:15: INJ, Start [place] microgram 00 date: 08/29/20 8:15:00 CDT, Stop [...] 4-09 Total l 0.9% IV 12:30: Volume: [place] (ANES) 1000 00 1,000, mL Start date: [...] 4-09 Total l 0.9% IV 12:30: Volume: [place] (ANES) 1000 00 1,000, mL Start date: 08/29/20 7:30:00 CDT, Stop date: 08/29/20 8:30:00 CDT Sodium 2020-0 No Route: IV, Memor ia Chloride 4-09 Total l 0.9% IV 12:30: Volume: [place] (ANES) 1000 00 1,000, mL Start date: 08/29/20 7:30:00 CDT, Stop date: 08/29/20 8:30:00 CDT Sodium 2020-0 No Route: IV, [facility] Chloride 4-09 Total l 0.9% IV 12:30: Volume: [place] (ANES) 1000 00 1,000, mL Start date: 08/29/20 7:30:00 CDT, Stop date: 08/29/20 8:30:00 CDT Sodium 0 No Route: IV, [facility] Chloride 4-09 [...] PO, l Hydrochlori 11:42: Q24H, # 30 [place] de 150 MG 00 tab, 0 Extended [...] PO, l Hydrochlori 11:42: Q24H, # 30 [place] de 150 MG 00 tab, 0 Extended [...] 4- Q12H, tab, l Tablet 11:41: 0 [place] [Eliquis] 00 Refill(s), For Atrial Fibrilatio n [...] 08-29 Q12H, tab, l Tablet 11:41: 0 [place] [Eliquis] 00 Refill(s), For Atrial Fibrilatio n [...] tab, PO, l tablet 11:38: Daily, # [place] 00 90 tab, 3 Refill(s) AMIODarone 2020-0 Yes 200 mg = 1 M [place] 200 mg oral 4-09 tab, PO, l tablet 11:38: Daily, # [place] 00 90 tab, 3 Refill(s) AMIODarone 2020-0 Yes 200 mg = 1 M [place] 200 mg oral 4-09 tab, PO, l tablet 11:38: Daily, # [place] 00 90 tab, 3 Refill(s) AMIODarone 2020-0 Yes 200 mg = 1 M [place] 200 mg oral 4-09 tab, PO, l tablet 11:38: Daily, # [place] 00 90 tab, 3 Refill(s) normal 2020-0 [...] Descov[place]-Ten[place] 1-21 200 mg-25 [facility] r AF 00:00: mg tablet [...] Immunizations Ordered Filled Immunization Date Status Comments [facility] e Immunization Name Name SARS-COV-2 COVID-19 [...] [place] 65[place] PFIZER COVID-19 2020-07-23 Completed Scientologist MRNA VACCINATION 00:00:00 [facility] PFIZER COVID-19 2020-07-23 Completed Scientologist MRNA VACCINATION 00:00:00 [facility] PFIZER COVID-19 2020-07-23 Completed Scientologist MRNA VACCINATION 00:00:00 [facility] PFIZER COVID-19 2020-07-23 Completed Scientologist MRNA VACCINATION 00:00:00 [facility] PFIZER COVID-19 2020-07-23 Completed Scientologist MRNA VACCINATION 00:00:00 [facility] PFIZER COVID-19 2020-07-23 Completed Scientologist MRNA VACCINATION 00:00:00 [facility] PFIZER COVID-19 2020-07-23 Completed Scientologist MRNA VACCINATION 00:00:00 [facility] PFIZER COVID-19 2020-07-23 Completed Scientologist MRNA VACCINATION 00:00:00 [facility] PFIZER COVID-19 2020-07-23 Completed Scientologist MRNA VACCINATION 00:00:00 [facility] PFIZER COVID-19 2020-07-23 Completed Scientologist MRNA VACCINATION 00:00:00 [facility] PFIZER COVID-19 2020-07-23 Completed Scientologist MRNA VACCINATION 00:00:00 [facility] PFIZER COVID-19 2020-07-23 Completed Scientologist MRNA VACCINATION 00:00:00 [facility] PFIZER COVID-19 2020-07-23 Completed Scientologist MRNA VACCINATION 00:00:00 [facility] PFIZER COVID-19 2020-07-23 Completed Scient[facility] MRNA VACCINATION 00:00:00 [facility] PFIZER COVID-19 2020-07-23 Completed Scientologist MRNA VACCINATION 00:00:00 [facility] PFIZER COVID-19 2020-07-23 Completed [facility] MRNA VACCINATION 00:00:00 [facility] PFIZER COVID-19 2020-07-23 Completed Scientologist MRNA VACCINATION 00:00:00 [facility] PFIZER COVID-19 2020-07-23 Completed Scientologist MRNA VACCINATION 00:00:00 [facility] PFIZER COVID-19 2020-07-23 Completed Scient[facility] MRNA VACCINATION 00:00:00 [facility] PFIZER COVID-19 2020-07-23 Completed Scientologist MRNA VACCINATION 00:00:00 [facility] PFIZER COVID-19 2020-07-23 Completed Scient[facility] MRNA VACCINATION 00:00:00 [facility] PFIZER COVID-19 2020-07-23 Completed Scientologist MRNA VACCINATION 00:00:00 [facility] PFIZER COVID-19 2020-07-23 Completed Scientologist MRNA VACCINATION 00:00:00 [facility] PFIZER COVID-19 2020-07-23 Completed Scient[facility] MRNA VACCINATION 00:00:00 [facility] PFIZER COVID-19 2020-07-23 Completed Scient[facility] MRNA VACCINATION 00:00:00 [facility] PFIZER COVID-19 2020-07-23 Completed Scientologist MRNA VACCINATION 00:00:00 [facility] SARS-COV-2 COVID-19 2020-07-23 Completed Unive [facility] of PFIZER VACCINE 00:00:00 [facility] SARS-COV-2 COVID-19 2020-07-23 Completed Unive rsity of PFIZER VACCINE 00:00:00 [facility] SARS-COV-2 COVID-19 2020-07-23 Completed Unive rsity of PFIZER VACCINE 00:00:00 [facility] SARS-COV-2 COVID-19 2020-07-23 Completed Unive rsity of PFIZER VACCINE 00:00:00 [facility] SARS-COV-2 COVID-19 2020-07-23 Completed [facility]ive rsity of PFIZER VACCINE 00:00:00 [facility] SARS-COV-2 COVID-19 2020-07-23 Completed [facility]ive rsity of PFIZER VACCINE 00:00:00 [facility] SARS-COV-2 COVID-19 2020-07-23 Completed Unive rsity of PFIZER VACCINE 00:00:00 [facility] SARS-COV-2 COVID-19 2020-07-23 Completed [facility]ive [facility]ity of PFIZER VACCINE 00:00:00 [facility] SARS-COV-2 COVID-19 2020-07-23 Completed Unive rsity of PFIZER VACCINE 00:00:00 [facility] PFIZER COVID-19 2020-07-23 Completed [facility] MRNA VACCINATION 00:00:00 [facility] PFIZER COVID-19 2020-07-02 Completed [facility] MRNA VACCINATION 00:00:00 [facility] PFIZER COVID-19 2020-07-02 Completed [facility] MRNA VACCINATION 00:00:00 [facility] PFIZER COVID-19 2020-07-02 Completed [facility] MRNA VACCINATION 00:00:00 [facility] PFIZER COVID-19 2020-07-02 Completed [facility] MRNA VACCINATION 00:00:00 [facility] PFIZER COVID-19 2020-07-02 Completed [facility] MRNA VACCINATION 00:00:00 [facility] PFIZER COVID-19 2020-07-02 Completed [facility] MRNA VACCINATION 00:00:00 [facility] PFIZER COVID-19 2020-07-02 Completed Scient[facility] MRNA VACCINATION 00:00:00 [facility] PFIZER COVID-19 2020-07-02 Completed Scientologist MRNA VACCINATION 00:00:00 [facility] PFIZER COVID-19 2020-07-02 Completed Scientologist MRNA VACCINATION 00:00:00 [facility] PFIZER COVID-19 2020-07-02 Completed Scientologist MRNA VACCINATION 00:00:00 [facility] PFIZER COVID-19 2020-07-02 Completed Scientologist MRNA VACCINATION 00:00:00 [facility] PFIZER COVID-19 2020-07-02 Completed Scientologist MRNA VACCINATION 00:00:00 [facility] PFIZER COVID-19 2020-07-02 Completed Scientologist MRNA VACCINATION 00:00:00 [facility] PFIZER COVID-19 2020-07-02 Completed [facility] MRNA VACCINATION 00:00:00 Hospital PFIZER COVID-19 2020-07-02 Completed Scientologist MRNA VACCINATION 00:00:00 [facility] PFIZER COVID-19 2020-07-02 Completed Scientologist MRNA VACCINATION 00:00:00 [facility] PFIZER COVID-19 2020-07-02 Completed [facility] MRNA VACCINATION 00:00:00 Hospital PFIZER COVID-19 2020-07-02 Completed [facility] MRNA VACCINATION 00:00:00 Hospital PFIZER COVID-19 2020-07-02 Completed [facility] MRNA VACCINATION 00:00:00 Hospital PFIZER COVID-19 2020-07-02 Completed [facility] MRNA VACCINATION 00:00:00 Hospital PFIZER COVID-19 2020-07-02 Completed Scientologist MRNA VACCINATION 00:00:00 [facility] PFIZER COVID-19 2020-07-02 Completed Scient[facility] MRNA VACCINATION 00:00:00 Hospital PFIZER COVID-19 2020-07-02 Completed [facility] MRNA VACCINATION 00:00:00 Hospital PFIZER COVID-19 2020-07-02 Completed [facility] MRNA VACCINATION 00:00:00 Hospital PFIZER COVID-19 2020-07-02 Completed [facility] MRNA VACCINATION 00:00:00 Hospital PFIZER COVID-19 2020-07-02 Completed Scientologist MRNA VACCINATION 00:00:00 [facility] SARS-COV-2 COVID-19 2020-07-02 Completed [facility]ive rs[facility] of PFIZER VACCINE 00:00:00 [facility] SARS-COV-2 COVID-19 2020-07-02 Completed Unive rsity of PFIZER VACCINE 00:00:00 [facility] SARS-COV-2 COVID-19 2020-07-02 Completed [facility]ive rsity of PFIZER VACCINE 00:00:00 [facility] SARS-COV-2 COVID-19 2020-07-02 Completed Unive rsity of PFIZER VACCINE 00:00:00 [facility] SARS-COV-2 COVID-19 2020-07-02 Completed [facility]ive rsity of PFIZER VACCINE 00:00:00 [facility] SARS-COV-2 COVID-19 2020-07-02 Completed Unive rsity of PFIZER VACCINE 00:00:00 [facility] SARS-COV-2 COVID-19 2020-07-02 Completed Unive rsity of PFIZER VACCINE 00:00:00 [facility] SARS-COV-2 COVID-19 2020-07-02 Completed [facility]ive rsity of PFIZER VACCINE 00:00:00 [facility] SARS-COV-2 COVID-19 2020-07-02 Completed Unive rsity of PFIZER VACCINE 00:00:00 [facility] PFIZER COVID-19 2020-07-02 Completed Scient[facility] MRNA VACCINATION 00:00:00 Hospital Influenza Virus 2017-03-08 Completed [facility]it [facility] Vaccine 00:00:00 [facility] Influenza Virus 2017-03-08 Completed [facility] of Vaccine 00:00:00 [facility] Influenza Virus 2017-03-08 Completed [facility] of Vaccine 00:00:00 [facility] Influenza Virus 2017-03-08 Completed [facility] of Vaccine 00:00:00 [facility] Influenza Virus 2017-03-08 Completed [facility] of Vaccine 00:00:00 [facility] Influenza Virus 2017-03-08 Completed [facility] of Vaccine 00:00:00 [facility] Influenza Virus 2017-03-08 Completed [facility] of Vaccine 00:00:00 [facility] Influenza Virus 2017-03-08 Completed [facility] of Vaccine 00:00:00 [facility] Influenza Virus 2017-03-08 Completed [facility] of Vaccine 00:00:00 [facility] Influenza Virus 2017-03-08 Completed [facility] of Vaccine 00:00:00 [facility] Influenza Virus 2017-03-08 Completed [facility] of Vaccine 00:00:00 [facility] Influenza Virus 2017-03-08 Completed [facility] of Vaccine 00:00:00 [facility] Influenza Virus 2017-03-08 Completed [facility] of Vaccine 00:00:00 [facility] Influenza Virus 2014-01-30 Completed [facility]it y of Vaccine (3+ yrs) 00:00:00 [facility] Pneumococcal 13 2014-01-30 Completed [facility]it y of Conjugate, PCV13 00:00:00 [facility] 13[facility] Influenza Virus 2014-01-30 Completed [facility]it y of Vaccine (3+ yrs) 00:00:00 [facility] Pneumococcal 13 2014-01-30 Completed Universit y of Conjugate, PCV13 00:00:00 [facility] dical (Prevnar 13) Branch Influenza Virus 2014-01-30 Completed [facility]it y of Vaccine (3+ yrs) 00:00:00 [facility] Pneumococcal 13 2014-01-30 Completed [facility]it y of Conjugate, PCV13 00:00:00 [facility] dical (Prevnar 13) Branch Influenza Virus 2014-01-30 Completed [facility]it y of Vaccine (3+ yrs) 00:00:00 [facility] Pneumococcal 13 2014-01-30 Completed [facility]it y of Conjugate, PCV13 00:00:00 [facility] dical (Prevnar 13) Branch Influenza Virus 2014-01-30 Completed [facility]it y of Vaccine (3+ yrs) 00:00:00 [facility] Pneumococcal 13 2014-01-30 Completed [facility] y of Conjugate, PCV13 00:00:00 [facility] (Prevnar 13) Branch Influenza Virus 2014-01-30 Completed [facility] Vaccine (3+ yrs) 00:00:00 [facility] Pneumococcal 13 2014-01-30 Completed [facility] of Conjugate, PCV13 00:00:00 [facility] (Prevnar 13) [facility] Influenza Virus 2014-01-30 Completed [facility] of Vaccine (3+ yrs) 00:00:00 [facility] Pneumococcal 13 2014-01-30 Completed [facility]it y of Conjugate, PCV13 00:00:00 [facility] dical (Prevnar 13) Branch Influenza Virus 2014-01-30 Completed [facility] y of Vaccine (3+ yrs) 00:00:00 [facility] Pneumococcal 13 2014-01-30 Completed [facility]it y of Conjugate, PCV13 00:00:00 [facility] dical (Prevnar 13) Branch Influenza Virus 2014-01-30 Completed [facility]it y of Vaccine (3+ yrs) 00:00:00 [facility] d[facility] Branch Pneumococcal 13 2014-01-30 Completed Universit y of Conjugate, PCV13 00:00:00 [facility] dical (Prevnar 13) Branch Influenza Virus 2014-01-30 Completed [facility]it y of Vaccine (3+ yrs) 00:00:00 [facility] Branch Pneumococcal 13 2014-01-30 Completed Universit y of Conjugate, PCV13 00:00:00 [facility] dical (Prevnar 13) Branch Influenza Virus 2014-01-30 Completed [facility]it y of Vaccine (3+ yrs) 00:00:00 [facility] dical Branch Pneumococcal 13 2014-01-30 Completed Universit y of Conjugate, PCV13 00:00:00 [facility] dical (Prevnar 13) Branch Influenza Virus 2014-01-30 Completed Universit y of Vaccine (3+ yrs) 00:00:00 [facility] dical Branch Pneumococcal 13 2014-01-30 Completed Universit y of Conjugate, PCV13 00:00:00 [facility] dical (Prevnar 13) Branch Influenza Virus 2014-01-30 Completed [facility]it y of Vaccine (3+ yrs) 00:00:00 [facility] d[facility] Branch Pneumococcal 13 2014-01-30 Completed Universit y of Conjugate, PCV13 00:00:00 [facility] dical (Prevnar 13) Branch Pneumococcal 2012-02-16 Completed University o f Polysaccharide, 00:00:00 [facility] PPSV23 (PNEUMOVAX) Branch Influenza Virus 2012-02-16 Completed Universit y of Vaccine 00:00:00 [facility] PPD (TB) 2012-02-16 Completed University of 00:00:00 [facility] Pneumococcal 2012-02-16 Completed University o f Polysaccharide, 00:00:00 [place] [facility] PPSV23 (PNEUMOVAX) Branch Influenza Virus 2012-02-16 Completed [facility]it y of Vaccine 00:00:00 [facility] PPD (TB) 2012-02-16 Completed University of 00:00:00 [facility] Pneumococcal 2012-02-16 Completed [facility] o f Polysaccharide, 00:00:00 [place] [facility] PPSV23 (PNEUMOVAX) Branch Influenza Virus 2012-02-16 Completed [facility]it y of Vaccine 00:00:00 [facility] PPD (TB) 2012-02-16 Completed University of 00:00:00 [facility] Pneumococcal 2012-02-16 Completed University o f Polysaccharide, 00:00:00 [place] [facility] PPSV23 (PNEUMOVAX) Branch Influenza Virus 2012-02-16 Completed [facility]it y of Vaccine 00:00:00 [facility] PPD (TB) 2012-02-16 Completed University of 00:00:00 [facility] Pneumococcal 2012-02-16 Completed University o f Polysaccharide, 00:00:00 [place] [facility] PPSV23 (PNEUMOVAX) Branch Influenza Virus 2012-02-16 Completed [facility]it y of Vaccine 00:00:00 [facility] PPD (TB) 2012-02-16 Completed University of 00:00:00 [facility] Pneumococcal 2012-02-16 Completed University o f Polysaccharide, 00:00:00 [place] [facility] PPSV23 (PNEUMOVAX) Branch Influenza Virus 2012-02-16 Completed [facility]it y of Vaccine 00:00:00 [facility] PPD (TB) 2012-02-16 Completed [facility] of 00:00:00 [facility] Pneumococcal 2012-02-16 Completed University o f Polysaccharide, 00:00:00 [place] [facility] PPSV23 (PNEUMOVAX) Branch Influenza Virus 2012-02-16 Completed [facility]it y of Vaccine 00:00:00 [facility] PPD (TB) 2012-02-16 Completed University of 00:00:00 [facility] Pneumococcal 2012-02-16 Completed University o f Polysaccharide, 00:00:00 [place] [facility] PPSV23 (PNEUMOVAX) Branch Influenza Virus 2012-02-16 Completed [facility]it y of Vaccine 00:00:00 [facility] PPD (TB) 2012-02-16 Completed [facility] of 00:00:00 [facility] Pneumococcal 2012-02-16 Completed University o f Polysaccharide, 00:00:00 [place] [facility] PPSV23 (PNEUMOVAX) Branch Influenza Virus 2012-02-16 Completed [facility]it y of Vaccine 00:00:00 [facility] PPD (TB) 2012-02-16 Completed University of 00:00:00 [facility] Pneumococcal 2012-02-16 Completed [facility] o f Polysaccharide, 00:00:00 [place] [facility] PPSV23 (PNEUMOVAX) Branch Influenza Virus 2012-02-16 Completed [facility]it y of Vaccine 00:00:00 [facility] PPD (TB) 2012-02-16 Completed University of 00:00:00 [facility] Pneumococcal 2012-02-16 Completed University o f Polysaccharide, 00:00:00 [place] [facility] PPSV23 (PNEUMOVAX) Branch Influenza Virus 2012-02-16 Completed Universit y of Vaccine 00:00:00 [facility] PPD (TB) 2012-02-16 Completed University of 00:00:00 [facility] Pneumococcal 2012-02-16 Completed University o f Polysaccharide, 00:00:00 [place] [facility] PPSV23 (PNEUMOVAX) Branch Influenza Virus 2012-02-16 Completed [facility]it y of Vaccine 00:00:00 [facility] PPD (TB) 2012-02-16 Completed University of 00:00:00 [facility] Pneumococcal 2012-02-16 Completed University o f Polysaccharide, 00:00:00 [place] [facility] PPSV23 (PNEUMOVAX) Branch Influenza Virus 2012-02-16 Completed Universit y of Vaccine 00:00:00 [facility] PPD (TB) 2012-02-16 Completed University of 00:00:00 [facility] Hep B, Adol or Pedi 2011-09-01 Completed Unive rsity of Dosage 00:00:00 [facility] Hep B, Adol or Pedi 2011-09-01 Completed Unive rsity of Dosage 00:00:00 [facility] Hep B, Adol or Pedi 2011-09-01 Completed Unive rsity of Dosage 00:00:00 [facility] Hep B, Adol or Pedi 2011-09-01 Completed Unive rsity of Dosage 00:00:00 [facility] Hep B, Adol or Pedi 2011-09-01 [...] Unive rsity of Dosage 00:00:00 [facility] Hep B, Adol or Pedi 2011-03-17 Completed Unive rsity of Dosage 00:00:00 [facility] Hep B, Adol or Pedi 2011-03-17 Completed Unive rsity of Dosage 00:00:00 [facility] Hep B, Adol or Pedi 2011-03-17 Completed Unive rsity of Dosage 00:00:00 [facility] Influenza Virus 2011-02-10 Completed Universit [facility] of Vaccine 00:00:00 [facility] Hep B, Adol or Pedi 2011-02-10 Completed Unive rsity of Dosage 00:00:00 [facility] Influenza Virus 2011-02-10 Completed [facility]it [facility] of Vaccine 00:00:00 [facility] Hep B, Adol or Pedi 2011-02-10 Completed Unive rsity of Dosage 00:00:00 [facility] Influenza Virus 2011-02-10 Completed [facility]it y of Vaccine 00:00:00 [facility] Hep B, Adol or Pedi 2011-02-10 Completed Unive rsity of Dosage 00:00:00 [facility] Influenza Virus 2011-02-10 Completed [facility]it y of Vaccine 00:00:00 [facility] Hep B, Adol or Pedi 2011-02-10 Completed Unive rsity of Dosage 00:00:00 [facility] Influenza Virus 2011-02-10 Completed [facility] y of Vaccine 00:00:00 [facility] Hep B, Adol or Pedi 2011-02-10 Completed Unive rsity of Dosage 00:00:00 [facility] Influenza Virus 2011-02-10 Completed [facility] y of Vaccine 00:00:00 [facility] Hep B, Adol or Pedi 2011-02-10 Completed Unive rsity of Dosage 00:00:00 [facility] Influenza Virus 2011-02-10 Completed [facility]it y of Vaccine 00:00:00 [facility] Hep B, Adol or Pedi 2011-02-10 Completed Unive rsity of Dosage 00:00:00 [facility] Influenza Virus 2011-02-10 Completed [facility]it y of Vaccine 00:00:00 [facility] Hep B, Adol or Pedi 2011-02-10 Completed Unive rsity of Dosage 00:00:00 [facility] Influenza Virus 2011-02-10 Completed [facility]it y of Vaccine 00:00:00 [facility] Hep B, Adol or Pedi 2011-02-10 Completed Unive rsity of Dosage 00:00:00 [facility] Influenza Virus 2011-02-10 Completed [facility]it y of Vaccine 00:00:00 [facility] Hep B, Adol or Pedi 2011-02-10 Completed Unive rsity of Dosage 00:00:00 [facility] Influenza Virus 2011-02-10 Completed [facility]it y of Vaccine 00:00:00 [facility] Hep B, Adol or Pedi 2011-02-10 Completed Unive rsity of Dosage 00:00:00 [facility] Influenza Virus 2011-02-10 Completed [facility]it y of Vaccine 00:00:00 [facility] Hep B, Adol or Pedi 2011-02-10 Completed [facility]ive rsity of Dosage 00:00:00 [facility] Influenza Virus 2011-02-10 Completed [facility]it y of Vaccine 00:00:00 [facility] Hep B, Adol or Pedi 2011-02-10 Completed [facility]ive rsity of Dosage 00:00:00 [facility] PPD (TB) 2010-11-18 Completed University of 00:00:00 [facility] TDAP (ADACEL) 2010-11-18 Completed University of VACCINE 00:00:00 [facility] PPD (TB) 2010-11-18 Completed University of 00:00:00 [facility] TDAP (ADACEL) 2010-11-18 Completed University of VACCINE 00:00:00 [facility] PPD (TB) 2010-11-18 Completed University of 00:00:00 [facility] TDAP (ADACEL) 2010-11-18 Completed University of VACCINE 00:00:00 [facility] PPD (TB) 2010-11-18 Completed University of 00:00:00 [facility] TDAP (ADACEL) 2010-11-18 Completed University of VACCINE 00:00:00 [facility] PPD (TB) 2010-11-18 Completed University of 00:00:00 [facility] TDAP (ADACEL) 2010-11-18 Completed University of VACCINE 00:00:00 [facility] PPD (TB) 2010-11-18 Completed [facility] of 00:00:00 [facility] TDAP (ADACEL) 2010-11-18 Completed University of VACCINE 00:00:00 [facility] PPD (TB) 2010-11-18 Completed [facility] of 00:00:00 [facility] TDAP (ADACEL) 2010-11-18 Completed University of VACCINE 00:00:00 [facility] PPD (TB) 2010-11-18 Completed [facility] of 00:00:00 [facility] TDAP (ADACEL) 2010-11-18 Completed University of VACCINE 00:00:00 [facility] PPD (TB) 2010-11-18 Completed University of 00:00:00 [facility] TDAP (ADACEL) 2010-11-18 Completed University of VACCINE 00:00:00 [facility] PPD (TB) 2010-11-18 Completed University of 00:00:00 [facility] TDAP (ADACEL) 2010-11-18 Completed University of VACCINE 00:00:00 [facility] PPD (TB) 2010-11-18 Completed University of 00:00:00 [facility] TDAP (ADACEL) 2010-11-18 Completed University of VACCINE 00:00:00 [facility] PPD (TB) 2010-11-18 Completed [facility] of 00:00:00 [facility] TDAP (ADACEL) 2010-11-18 Completed University of VACCINE 00:00:00 [facility] PPD (TB) 2010-11-18 Completed University of 00:00:00 [facility] TDAP (ADACEL) 2010-11-18 Completed University of VACCINE 00:00:00 [facility] HEPATITIS A 2004-03-02 Completed University of 00:00:00 [facility] HEPATITIS A 2004-03-02 Completed [facility] of 00:00:00 [facility] HEPATITIS A 2004-03-02 Completed [facility] of 00:00:00 [facility] HEPATITIS A 2004-03-02 Completed [facility] of 00:00:00 [facility] HEPATITIS A 2004-03-02 Completed [facility] of 00:00:00 [facility] HEPATITIS A 2004-03-02 Completed University of 00:00:00 [facility] HEPATITIS A 2004-03-02 Completed [facility] of 00:00:00 [facility] HEPATITIS A 2004-03-02 Completed [facility] of 00:00:00 [facility] HEPATITIS A 2004-03-02 Completed [facility] of 00:00:00 [facility] HEPATITIS A 2004-03-02 Completed [facility] of 00:00:00 [facility] HEPATITIS A 2004-03-02 Completed [facility] 00:00:00 [place] [facility] HEPATITIS A 2004-03-02 Completed [facility] 00:00:00 [facility] HEPATITIS A 2004-03-02 Completed [facility] 00:00:00 [facility] HEPATITIS A 2003-08-01 Completed [facility] of 00:00:00 [facility] HEPATITIS A 2003-08-01 Completed [facility] 00:00:00 [facility] HEPATITIS A 2003-08-01 Completed [facility] 00:00:00 [facility] HEPATITIS A 2003-08-01 Completed [facility] of 00:00:00 [facility] HEPATITIS A 2003-08-01 Completed [facility] of 00:00:00 [facility] HEPATITIS A 2003-08-01 Completed [facility] of 00:00:00 [facility] HEPATITIS A 2003-08-01 Completed [facility] of 00:00:00 [facility] HEPATITIS A 2003-08-01 Completed [facility] of 00:00:00 [facility] HEPATITIS A 2003-08-01 Completed [facility] 00:00:00 [facility] HEPATITIS A 2003-08-01 Completed [facility] 00:00:00 [facility] HEPATITIS A 2003-08-01 Completed [facility] 00:00:00 [facility] HEPATITIS A 2003-08-01 Completed [facility] of 00:00:00 [facility] HEPATITIS A 2003-08-01 Completed [facility] of 00:00:00 [facility] Pneumococcal 2001-10-04 Completed University o f Polysaccharide, 00:00:00 [place] [facility] PPSV23 (PNEUMOVAX) Branch PPD (TB) 2001-10-04 Completed [facility] of 00:00:00 [facility] Pneumococcal 2001-10-04 Completed University o f Polysaccharide, 00:00:00 [facility] PPSV23 (PNEUMOVAX) [facility] PPD (TB) 2001-10-04 Completed [facility] of 00:00:00 [facility] Pneumococcal 2001-10-04 Completed University o f Polysaccharide, 00:00:00 [place] [facility] PPSV23 (PNEUMOVAX) Branch PPD (TB) 2001-10-04 Completed [facility] of 00:00:00 [facility] Pneumococcal 2001-10-04 Completed University o f Polysaccharide, 00:00:00 [place] [facility] PPSV23 (PNEUMOVAX) Branch PPD (TB) 2001-10-04 Completed [facility] of 00:00:00 [facility] Pneumococcal 2001-10-04 Completed University o f Polysaccharide, 00:00:00 [facility] PPSV23 (PNEUMOVAX) [facility] PPD (TB) 2001-10-04 Completed [facility] 00:00:00 [facility] Pneumococcal 2001-10-04 Completed University o f Polysaccharide, 00:00:00 [facility] PPSV23 (PNEUMOVAX) [facility] PPD (TB) 2001-10-04 Completed [facility] 00:00:00 [facility] Pneumococcal 2001-10-04 Completed University o f Polysaccharide, 00:00:00 [facility] PPSV23 (PNEUMOVAX) [facility] PPD (TB) 2001-10-04 Completed [facility] 00:00:00 [facility] Pneumococcal 2001-10-04 Completed University o f Polysaccharide, 00:00:00 [facility] PPSV23 (PNEUMOVAX) Branch PPD (TB) 2001-10-04 Completed [facility] of 00:00:00 [facility] Pneumococcal 2001-10-04 Completed University o f Polysaccharide, 00:00:00 [place] [facility] PPSV23 (PNEUMOVAX) Branch PPD (TB) 2001-10-04 Completed [facility] of 00:00:00 [facility] Pneumococcal 2001-10-04 Completed University o f Polysaccharide, 00:00:00 [place] [facility] PPSV23 (PNEUMOVAX) Branch PPD (TB) 2001-10-04 Completed [facility] 00:00:00 [facility] Pneumococcal 2001-10-04 Completed University o f Polysaccharide, 00:00:00 [place] [facility] PPSV23 (PNEUMOVAX) Branch PPD (TB) 2001-10-04 Completed [facility] 00:00:00 [facility] Pneumococcal 2001-10-04 Completed University o f Polysaccharide, 00:00:00 [place] [facility] PPSV23 (PNEUMOVAX) Branch PPD (TB) 2001-10-04 Completed [facility] of 00:00:00 [facility] Pneumococcal 2001-10-04 Completed University o f Polysaccharide, 00:00:00 [place] [facility] PPSV23 (PNEUMOVAX) Branch PPD (TB) 2001-10-04 Completed [facility] of 00:00:00 [facility] Vital Signs Vital Name Observation Time Observation Value Comments Source Systolic blood 2022-05-07 00:00:00 149 mm[Hg] Univer sity of pressure [facility] Diastolic blood 2022-05-07 00:00:00 132 mm[Hg] Unive rsity of pressure [facility] Heart rate 2022-05-07 00:00:00 59 /min [facility] Respiratory rate 2022-05-07 00:00:00 14 /min Univ ersity of [facility] Oxygen saturation in 2022-05-07 00:00:00 99 /min University of Arterial blood by [facility] Pulse oximetry Branch Body temperature 2022-05-06 20:12:00 36.5 Amina [facility] Body height 2022-05-06 20:12:00 162.6 cm [facility] Body weight 2022-05-06 20:12:00 78.926 kg [facility] BMI 2022-05-06 20:12:00 29.87 kg/m2 [facility] Systolic blood 2022-04-22 19:50:00 156 mm[Hg] Univer sity of pressure [facility] Diastolic blood 2022-04-22 19:50:00 89 mm[Hg] Unive rsity of pressure [facility] Heart rate 2022-04-22 19:50:00 69 /min [facility] Body temperature 2022-04-22 19:50:00 36.67 Amina [facility] Respiratory rate 2022-04-22 19:50:00 17 /min Univ [facility] Body height 2022-04-22 19:50:00 162.6 cm [facility] Body weight 2022-04-22 19:50:00 80.74 kg [facility] BMI 2022-04-22 19:50:00 30.55 kg/m2 [facility] Oxygen saturation in 2022-04-22 19:50:00 96 /min University of Arterial blood by [facility] Pulse oximetry Branch Systolic blood 2022-03-05 15:23:00 167 mm[Hg] Univer sity of pressure [facility] Diastolic blood 2022-03-05 15:23:00 105 mm[Hg] Unive rsity of pressure [facility] Heart rate 2022-03-05 15:23:00 49 /min [facility] Body temperature 2022-03-05 15:18:00 36.67 Amina [facility] Respiratory rate 2022-03-05 15:18:00 18 /min Univ [facility] Body height 2022-03-05 15:18:00 162.6 cm [facility] Body weight 2022-03-05 15:18:00 74.707 kg [facility] BMI 2022-03-05 15:18:00 28.27 kg/m2 [facility] Systolic blood 2022-02-16 21:41:00 169 mm[Hg] Univer sity of pressure [facility] Diastolic blood 2022-02-16 21:41:00 86 mm[Hg] Unive rsity of pressure [facility] Heart rate 2022-02-16 21:41:00 51 /min [facility] Body temperature 2022-02-16 21:41:00 36.56 Amina [facility] Respiratory rate 2022-02-16 21:41:00 17 /min Univ ersity of [facility] Oxygen saturation in 2022-02-16 21:41:00 98 /min University of Arterial blood by [facility] Pulse oximetry Branch Body height 2022-02-11 16:02:00 162.6 cm [facility] Body weight 2022-02-11 16:02:00 79.379 kg [facility] BMI 2022-02-11 16:02:00 30.04 kg/m2 [facility] Systolic blood 2021-11-20 13:47:00 165 mm[Hg] Univer sity of pressure [facility] Diastolic blood 2021-11-20 13:47:00 83 mm[Hg] Unive rsity of pressure [facility] Heart rate 2021-11-20 13:47:00 58 /min [facility] Body temperature 2021-11-20 13:42:00 36.39 Amina Univ ersity of [facility] Respiratory rate 2021-11-20 13:42:00 16 /min Univ [facility] Body height 2021-11-20 13:42:00 162.6 cm [facility] Body weight 2021-11-20 13:42:00 84.369 kg [facility] BMI 2021-11-20 13:42:00 31.93 kg/m2 [facility] Systolic blood 2021-07-14 15:18:00 142 mm[Hg] [facility] Diastolic blood 2021-07-14 15:18:00 76 mm[Hg] [facility] Heart rate 2021-07-14 15:18:00 61 [facility] Body height 2021-07-14 15:18:00 [facility]6 [facility] weight 2021-07-14 15:18:00 [facility]802 [facility] BMI 2021-07-14 15:18:00 35.87 kg/m2 [facility] Systolic blood 2022-03-05 15:23:00 167 mm[Hg] Univer sity of [facility] Diastolic blood 2022-03-05 15:23:00 105 mm[Hg] Unive rsity of [facility] Heart rate 2022-03-05 15:23:00 49 /min [facility] Body temperature 2022-03-05 15:18:00 36.67 Amina [facility] 2022-03-05 15:18:00 18 /min [facility] Body height 2022-03-05 15:18:00 162.6 cm [facility] Body weight 2022-03-05 15:18:00 74.707 kg [facility] BMI 2022-03-05 15:18:00 28.27 kg/m2 [facility] Oxygen saturation in 2022-02-16 21:41:00 98 /min University Arterial blood by [facility] Pulse oximetry Branch Systolic blood 2020-12-08 15:48:00 125 mm[Hg] [facility] Diastolic blood 2020-12-08 15:48:00 76 mm[Hg] [facility] pressure Heart rate 2020-12-08 15:48:00 64 /min [facility] Body temperature 2020-12-08 15:48:00 36.61 Amina [facility] Respiratory rate 2020-12-08 15:48:00 17 /min [facility] Body height 2020-12-08 15:48:00 162.6 cm [facility] Body weight 2020-12-08 15:48:00 98.884 kg [facility] BMI 2020-12-08 15:48:00 37.42 kg/m2 [facility] Oxygen saturation in 2020-12-08 15:48:00 97 /min [facility] Arterial blood by Pulse oximetry Respitory Rate 2020-08-30 13:00:00 Memori al Marty Systolic (mm Hg) 2020-08-30 13:00:00 Caesar rial Marty Diastolic (mm Hg) 2020-08-30 13:00:00 Mem orial [place] Systolic (mm Hg) 2020-08-30 11:00:00 Caesar rial [place] Diastolic (mm Hg) 2020-08-30 11:00:00 Mem orial [place] Temperature Oral (F) 2020-08-30 11:00:00 98.4 F [facility] Respitory Rate 2020-08-30 11:00:00 Memori al [facility] Respitory Rate 2020-08-30 10:00:00 Memori al Marty Systolic (mm Hg) 2020-08-30 10:00:00 Caesar rial [facility] Diastolic (mm Hg) 2020-08-30 10:00:00 Mem orial [place] Temperature Oral (F) 2020-08-30 00:00:00 96.9 F [facility] Temperature Oral (F) 2020-08-29 11:26:00 97.6 F [facility] Height 2020-08-29 10:30:00 162.56 cm [facility] Weight 2020-08-29 10:30:00 [facility] BMI Calculated 2020-08-29 10:30:00 Memori al Marty Procedures Procedure Date / Time Performing Clinician Source Performed XR CHEST 2 VW 2022-05-06 22:56:53 Anette Olea [facility] COMP. METABOLIC PANEL 2022-05-06 22:14:00 nAette Olea [facility] ([id number]) [facility] CBC WITH DIFF 2022-05-06 22:14:00 Anette Olea [facility] COVID-19 (ID NOW RAPID 2022-05-06 22:14:00 Anette Olea [facility] TESTING) [facility] BASIC METABOLIC PANEL (NA, 2022-04-22 21:23:00 Paulette Gray [facility] K, CL, CO2, GLUCOSE, BUN, Medica l Branch CREATININE, [place]) CBC WITH DIFF 2022-04-22 21:23:00 Paulette Gray [facility] CONSENT/REFUSAL FOR 2022-04-22 19:45:46 Doctor Unassigned, [facility] DIAGNOSIS AND TREATMENT [facility] SARS-COV-2 COVID-19 2022-03-05 16:09:27 [facility] DIMITRIS-SUCROSE VACCINE [address] [place] [address] YRS+, BIVALENT 0.3ML, IM, (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) FLU 2022-03-05 16:09:27 [facility] VACC(),65+YR,0.5 Medica l Branch ML,IM,ADJUVANTED,QUAD(FLUA D) FLU 2022-03-05 16:09:27 [facility] VACC(),65+YR,0.5 Medica l Branch ML,IM,ADJUVANTED,QUAD(FLUA D) SARS-COV-2 COVID-19 2022-03-05 16:09:27 [facility] DIMITRIS-SUCROSE VACCINE [address] [place] [address] YRS+, BIVALENT 0.3ML, IM, (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) MAGNESIUM 2022-02-15 09:41:00 Radha Sofia [facility] BASIC METABOLIC PANEL (NA, 2022-02-15 09:41:00 Sofia Garcia [facility] K, CL, CO2, GLUCOSE, BUN, Medica l Branch CREATININE, CA) CBC WITH DIFF 2022-02-15 09:41:00 Sofia Garcia [facility] N-TERMINAL PRO-BNP 2022-02-15 09:41:00 Sofia Garcia [facility] CBC WITH DIFF 2022-02-15 09:41:00 Sofia Garcia [facility] BASIC METABOLIC PANEL (NA, 2022-02-15 09:41:00 Sofia Garcia [facility] K, CL, CO2, GLUCOSE, BUN, Medica l Branch CREATININE, CA) MAGNESIUM 2022-02-15 09:41:00 Sofia Garcia [facility] N-TERMINAL PRO-BNP 2022-02-15 09:41:00 Sofia Garcia [facility] BASIC METABOLIC PANEL (NA, 2022-02-13 09:40:00 Radha [facility] K, CL, CO2, GLUCOSE, BUN, Medica l Branch CREATININE, CA) CBC WITH DIFF 2022-02-13 09:40:00 Sofia Garcia [facility] BASIC METABOLIC PANEL (NA, 2022-02-13 09:40:00 Radha [facility] K, CL, CO2, GLUCOSE, BUN, Medica l Branch CREATININE, CA) CBC WITH DIFF 2022-02-13 09:40:00 Radha [facility] TROPONIN I 2022-02-11 23:41:00 Radha [facility] N-TERMINAL PRO-BNP 2022-02-11 23:41:00 Sofia Garcia [facility] TROPONIN I 2022-02-11 23:41:00 Radha [facility] N-TERMINAL PRO-BNP 2022-02-11 23:41:00 Sofia Garcia [facility] HB ECG ROUTINE & RHYTHM 2022-02-11 22:15:36 Sofia Garcia Uni [facility] TRANSTHORACIC ECHO (TTE) 2022-02-11 21:26:50 [facility] (TTE) 2022-02-11 21:26:50 [facility] ABDOM[facility] PELVIS W 2022-02-11 07:45:43 Reilly Means [facility] CT ABDOMEN PELVIS W 2022-02-11 07:45:43 Reilly Means [facility] CONTRAST [facility] RAPID INFLUENZA A/B 2022-02-11 06:54:00 Reilly Means [facility] RAPID INFLUENZA A/B 2022-02-11 06:54:00 Reilly Means [facility] URINALYSIS 2022-02-11 06:45:00 Reilly Means [facility] URINE CULTURE 2022-02-11 06:45:00 Reilly Means [facility] URINALYSIS 2022-02-11 06:45:00 Reilly Means [facility] URINE CULTURE 2022-02-11 06:45:00 Reilly Means [facility] HB ECG ROUTINE & RHYTHM 2022-02-11 05:22:08 Reilly Means [facility] HB ECG ROUTINE & RHYTHM 2022-02-11 05:22:08 Reilly Means [facility] BLOOD CULTURE SCREEN 2022-02-11 04:58:00 Reilly Means [facility] TROPONIN I 2022-02-11 04:58:00 Reilly Means [facility] COMP. METABOLIC PANEL 2022-02-11 04:58:00 [id number] CBC WITH DIFF 2022-02-11 04:58:00 Reilly Means [facility] PROTHROMBIN TIME / INR 2022-02-11 04:58:00 Reilly Means [facility] ACTIVATED PARTIAL THRMPLAS 2022-02-11 04:58:00 Reilly Means [facility] N-TERMINAL PRO-BNP 2022-02-11 04:58:00 Reilly Means [facility] LACTIC ACID WHOLE BLOOD 2022-02-11 04:58:00 Reilly Means [facility] COVID-19 (ID NOW RAPID 2022-02-11 04:58:00 Reilly Means [facility] TESTING) Medical Branch LAB ONLY COVID 2022-02-11 04:58:00 Reilly Means [facility] CBC WITH DIFF 2022-02-11 04:58:00 Reilly Means [facility] ACTIVATED PARTIAL THRMPLAS 2022-02-11 04:58:00 Reilly Means [facility] PROTHROMBIN TIME / INR 2022-02-11 04:58:00 Reilly Means [facility] COVID-19 (ID NOW RAPID 2022-02-11 04:58:00 Reilly Means [facility] TESTING) [facility] [place] COMP. METABOLIC PANEL 2022-02-11 04:58:00 Reilly Means [facility] ([id number]) Medical Branch TROPONIN I 2022-02-11 04:58:00 Miguelangel Reilly [facility] N-TERMINAL PRO-BNP 2022-02-11 04:58:00 Reilly Means [facility] BLOOD CULTURE SCREEN 2022-02-11 04:58:00 Reilly Means [facility] LACTIC ACID WHOLE BLOOD 2022-02-11 04:58:00 Reilly Means [facility] LAB ONLY COVID 2022-02-11 04:58:00 Reilly Means [facility] INTERPRETATION [facility] XR CHEST 1 VW 2022-02-11 04:27:42 Miguelangel Reilly [facility] XR CHEST 1 2022-02-11 04:27:42 Reilly Means [facility] HOSPITAL ADMISSION 2022-02-10 05:01:00 Doctor Unassigned, [facility] [place] HOSPITAL ADMISSION 2022-02-10 05:01:00 Doctor Unassigned, [facility] Name [facility] [place] ECG 12-LEAD 2021-07-14 15:14:00 Elan Lira [facility] [id number] 2021-06-17 00:00:00 RASSA [facility] GASTROINTESTINAL PANEL 2020-12-08 22:21:[address] [facility] XR ABDOMEN 1 2020-12-08 18:06:32 Eliseo Arce spital OR [place] < 1 HOUR 2020-09-05 22:39:00 Eliseo Arce spital SURGICAL PATHOLOGY REQUEST 2020-09-05 21:54:00 Eliseo Arce [facility] XR CHEST 1 PORTABLE 2020-09-05 19:55:00 Eliseo Arce [facility] DISCHARGE PATIENT 2020-09-05 17:27:55 Lucas Harris [facility] UT AN ELECTIVE 2020-09-05 16:47:23 [facility]GD, INTRAOPERATIVE 2020-09-05 16:27:00 [facility] 2020-09-05 15:04:[address] [facility] TIME (PTT) M. PROTHROMBIN TIME WITH INR 2020-09-05 15:04:00 Mindy Maharaj [facility] M. Plan of Care Planned Activity Planned Date Details Comments Source Future Scheduled 2022-05-06 SHINGLES VACCINES (1 [facility] Test 14:03:13 of 2) [code = SHINGLES VACCINES (1 of 2)] Future Scheduled 2022-05-06 BREAST CANCER [facility] Test 14:03:13 SCREENING [code = BREAST CANCER SCREENING] Future Scheduled 2022-05-06 COLONOSCOPY SCREENING [facility] Test 14:03:13 [code = COLONOSCOPY SCREENING] Future Scheduled 2022-05-06 HEPATITIS B VACCINES [facility] Test 14:03:13 (1 of 3 - Risk 3-dose series) [code = HEPATITIS B VACCINES (1 of 3 - Risk 3-dose series)] Future Scheduled 2022-05-06 COVID-19 VACCINE (3 - [facility] Test 14:03:13 Booster for Pfizer series) [code = COVID-19 VACCINE (3 - Booster for Pfizer series)] Future Scheduled 2022-05-06 65+ PNEUMOCOCCAL [facility] Test 14:03:13 VACCINE (4 - PPSV23 if available, else PCV20) [code = 65+ PNEUMOCOCCAL VACCINE (4 - PPSV23 if available, else PCV20)] Future Scheduled 2022-05-06 INFLUENZA VACCINE Method [facility] Test 14:03:13 [code = INFLUENZA VACCINE] Future Scheduled 2022-04-30 SHINGLES VACCINES (1 [facility] Test 01:07:32 of 2) [code = SHINGLES VACCINES (1 of 2)] Future Scheduled 2022-04-30 BREAST CANCER [facility] Test 01:07:32 SCREENING [code = BREAST CANCER SCREENING] Future Scheduled 2022-04-30 COLONOSCOPY SCREENING [facility] Test 01:07:32 [code = COLONOSCOPY SCREENING] Future Scheduled 2022-04-30 HEPATITIS B VACCINES [facility] Test 01:07:32 (1 of 3 - Risk 3-dose series) [code = HEPATITIS B VACCINES (1 of 3 - Risk 3-dose series)] Future Scheduled 2022-04-30 COVID-19 VACCINE (3 - [facility] Test 01:07:32 Booster for Pfizer series) [code = COVID-19 VACCINE (3 - Booster for Pfizer series)] Future Scheduled 2022-04-30 65+ PNEUMOCOCCAL [facility] Test 01:07:32 VACCINE (4 - PPSV23 if available, else PCV20) [code = 65+ PNEUMOCOCCAL VACCINE (4 - PPSV23 if available, else PCV20)] Future Scheduled 2022-04-30 INFLUENZA VACCINE Method [facility] Test 01:07:32 [code = INFLUENZA VACCINE] Future Scheduled 2022-04-30 SHINGLES VACCINES (1 [facility] Test 01:07:32 of 2) [code = SHINGLES VACCINES (1 of 2)] Future Scheduled 2022-04-30 BREAST CANCER [facility] Test 01:07:32 SCREENING [code = BREAST CANCER SCREENING] Future Scheduled 2022-04-30 COLONOSCOPY SCREENING [facility] Test 01:07:32 [code = COLONOSCOPY SCREENING] Future Scheduled 2022-04-30 HEPATITIS B VACCINES [facility] Test 01:07:32 (1 of 3 - Risk 3-dose series) [code = HEPATITIS B VACCINES (1 of 3 - Risk 3-dose series)] Future Scheduled 2022-04-30 COVID-19 VACCINE (3 - [facility] Test 01:07:32 Booster for Pfizer series) [code = COVID-19 VACCINE (3 - Booster for Pfizer series)] Future Scheduled 2022-04-30 65+ PNEUMOCOCCAL [facility] Test 01:07:32 VACCINE (4 - PPSV23 if available, else PCV20) [code = 65+ PNEUMOCOCCAL VACCINE (4 - PPSV23 if available, else PCV20)] Future Scheduled 2022-04-30 INFLUENZA VACCINE Method [facility] Test 01:07:32 [code = INFLUENZA VACCINE] Future Scheduled 2022-04-30 SHINGLES VACCINES (1 [facility] Test 01:07:32 of 2) [code = SHINGLES VACCINES (1 of 2)] Future Scheduled 2022-04-30 BREAST CANCER [facility] Test 01:07:32 SCREENING [code = BREAST CANCER SCREENING] Future Scheduled 2022-04-30 COLONOSCOPY SCREENING [facility] Test 01:07:32 [code = COLONOSCOPY SCREENING] Future Scheduled 2022-04-30 HEPATITIS B VACCINES [facility] Test 01:07:32 (1 of 3 - Risk 3-dose series) [code = HEPATITIS B VACCINES (1 of 3 - Risk 3-dose series)] Future Scheduled 2022-04-30 COVID-19 VACCINE (3 - Me [facility] Test 01:07:32 Booster for Pfizer series) [code = COVID-19 VACCINE (3 - Booster for Pfizer series)] Future Scheduled 2022-04-30 65+ [facility]AL [facility] 01:07[facility]32 VACCINE (4 - PPSV23 if available, else PCV20) [code = 65+ PNEUMOCOCCAL VACCINE (4 - PPSV23 if available, else PCV20)] Future Scheduled 2022-04-30 INFLUENZA VACCINE Method [facility] Test 01:07:32 [code = INFLUENZA VACCINE] Future Scheduled 2022-04-25 SHINGLES VACCINES (1 [facility] Test 01:45:02 of 2) [code = SHINGLES VACCINES (1 of 2)] Future Scheduled 2022-04-25 BREAST CANCER [facility] Test 01:45:02 SCREENING [code = BREAST CANCER SCREENING] Future Scheduled 2022-04-25 COLONOSCOPY SCREENING [facility] Test 01:45:02 [code = COLONOSCOPY SCREENING] Future Scheduled 2022-04-25 HEPATITIS B VACCINES [facility] Test 01:45:02 (1 of 3 - Risk 3-dose series) [code = HEPATITIS B VACCINES (1 of 3 - Risk 3-dose series)] Future Scheduled 2022-04-25 COVID-19 VACCINE (3 - Me [facility] Test 01:45:02 Booster for Pfizer series) [code = COVID-19 VACCINE (3 - Booster for Pfizer series)] Future Scheduled 2022-04-25 65+ [facility]AL [facility] Test 01:45:02 VACCINE (4 - PPSV23 if available, else PCV20) [code = 65+ PNEUMOCOCCAL VACCINE (4 - PPSV23 if available, else PCV20)] Future Scheduled 2022-04-25 INFLUENZA VACCINE Method [facility] Test 01:45:02 [code = INFLUENZA VACCINE] Future Scheduled 2022-03-25 SHINGLES VACCINES (1 [facility] Test 14:48:42 of 2) [code = SHINGLES VACCINES (1 of 2)] Future Scheduled 2022-03-25 BREAST CANCER [facility] Test 14:48:42 SCREENING [code = BREAST CANCER SCREENING] Future Scheduled 2022-03-25 COLONOSCOPY SCREENING [facility] Test 14:48:42 [code = COLONOSCOPY SCREENING] Future Scheduled 2022-03-25 HEPATITIS B VACCINES [facility] Test 14:48:42 (1 of 3 - Risk 3-dose series) [code = HEPATITIS B VACCINES (1 of 3 - Risk 3-dose series)] Future Scheduled 2022-03-25 COVID-19 VACCINE (3 - Me [facility] Test 14:48:42 Booster for Pfizer series) [code = COVID-19 VACCINE (3 - Booster for Pfizer series)] Future Scheduled 2022-03-25 65+ [facility] 14:48:42 VACCINE (4 - PPSV23 if available, else PCV20) [code = 65+ PNEUMOCOCCAL VACCINE (4 - PPSV23 if available, else PCV20)] Future Scheduled 2022-03-25 INFLUENZA VACCINE Method [facility] Test 14:48:42 [code = INFLUENZA VACCINE] Future Scheduled 2022-03-25 SHINGLES VACCINES (1 [facility] Test 14:48:42 of 2) [code = SHINGLES VACCINES (1 of 2)] Future Scheduled 2022-03-25 BREAST CANCER [facility] Test 14:48:42 SCREENING [code = BREAST CANCER SCREENING] Future Scheduled 2022-03-25 COLONOSCOPY SCREENING [facility] Test 14:48:42 [code = COLONOSCOPY SCREENING] Future Scheduled 2022-03-25 HEPATITIS B VACCINES [facility] Test 14:48:42 (1 of 3 - Risk 3-dose series) [code = HEPATITIS B VACCINES (1 of 3 - Risk 3-dose series)] Future Scheduled 2022-03-25 COVID-19 VACCINE (3 - [facility] Test 14:48:42 Booster for Pfizer series) [code = COVID-19 VACCINE (3 - Booster for Pfizer series)] Future Scheduled 2022-03-25 65+ [facility]AL [facility] Test 14:48:42 VACCINE (4 - PPSV23 if available, else PCV20) [code = 65+ PNEUMOCOCCAL VACCINE (4 - PPSV23 if available, else PCV20)] Future Scheduled 2022-03-25 [facility] 14:48:42 [code = INFLUENZA VACCINE] Future Scheduled 2022-03-25 SHINGLES VACCINES (1 [facility] Test 14:48:42 of 2) [code = SHINGLES VACCINES (1 of 2)] Future Scheduled 2022-03-25 BREAST CANCER [facility] Test 14:48:42 SCREENING [code = BREAST CANCER SCREENING] Future Scheduled 2022-03-25 COLONOSCOPY SCREENING [facility] Test 14:48:42 [code = COLONOSCOPY SCREENING] Future Scheduled 2022-03-25 HEPATITIS B VACCINES [facility] Test 14:48:42 (1 of 3 - Risk 3-dose series) [code = HEPATITIS B VACCINES (1 of 3 - Risk 3-dose series)] Future Scheduled 2022-03-25 COVID-19 VACCINE (3 - [facility] Test 14:48:42 Booster for Pfizer series) [code = COVID-19 VACCINE (3 - Booster for Pfizer series)] Future Scheduled 2022-03-25 65+ PNEUMOCOCCAL [facility] Test 14:48:42 VACCINE (4 - PPSV23 if available, else PCV20) [code = 65+ PNEUMOCOCCAL VACCINE (4 - PPSV23 if available, else PCV20)] Future Scheduled 2022-03-25 INFLUENZA VACCINE Method [facility] Test 14:48:42 [code = INFLUENZA VACCINE] Future Scheduled 2022-03-25 SHINGLES VACCINES (1 [facility] Test 14:48:42 of 2) [code = SHINGLES VACCINES (1 of 2)] Future Scheduled 2022-03-25 BREAST CANCER [facility] Test 14:48:42 SCREENING [code = BREAST CANCER SCREENING] Future Scheduled 2022-03-25 COLONOSCOPY SCREENING [facility] Test 14:48:42 [code = COLONOSCOPY SCREENING] Future Scheduled 2022-03-25 HEPATITIS B VACCINES [facility] Test 14:48:42 (1 of 3 - Risk 3-dose series) [code = HEPATITIS B VACCINES (1 of 3 - Risk 3-dose series)] Future Scheduled 2022-03-25 COVID-19 VACCINE (3 - [facility] Test 14:48:42 Booster for Pfizer series) [code = COVID-19 VACCINE (3 - Booster for Pfizer series)] Future Scheduled 2022-03-25 65+ [facility] Test 14:48:42 VACCINE (4 - PPSV23 if available, else PCV20) [code = 65+ PNEUMOCOCCAL VACCINE (4 - PPSV23 if available, else PCV20)] Future Scheduled 2022-03-25 INFLUENZA VACCINE Method [facility] Test 14:48:42 [code = INFLUENZA VACCINE] Future Scheduled 2022-03-25 SHINGLES VACCINES (1 [facility] Test 14:48:42 of 2) [code = SHINGLES VACCINES (1 of 2)] Future Scheduled 2022-03-25 BREAST CANCER [facility] Test 14:48:42 SCREENING [code = BREAST CANCER SCREENING] Future Scheduled 2022-03-25 COLONOSCOPY SCREENING [facility] Test 14:48:42 [code = COLONOSCOPY SCREENING] Future Scheduled 2022-03-25 HEPATITIS B VACCINES [facility] Test 14:48:42 (1 of 3 - Risk 3-dose series) [code = HEPATITIS B VACCINES (1 of 3 - Risk 3-dose series)] Future Scheduled 2022-03-25 COVID-19 VACCINE (3 - Me [facility] Test 14:48:42 Booster for Pfizer series) [code = COVID-19 VACCINE (3 - Booster for Pfizer series)] Future Scheduled 2022-03-25 65+ PNEUMOCOCCAL [facility] Test 14:48:42 VACCINE (4 - PPSV23 if available, else PCV20) [code = 65+ PNEUMOCOCCAL VACCINE (4 - PPSV23 if available, else PCV20)] Future Scheduled 2022-03-25 INFLUENZA VACCINE Method [facility] Test 14:48:42 [code = INFLUENZA VACCINE] Future Scheduled 2022-03-25 SHINGLES VACCINES (1 [facility] Test 14:48:42 of 2) [code = SHINGLES VACCINES (1 of 2)] Future Scheduled 2022-03-25 BREAST CANCER [facility] Test 14:48:42 SCREENING [code = BREAST CANCER SCREENING] Future Scheduled 2022-03-25 COLONOSCOPY SCREENING [facility] Test 14:48:42 [code = COLONOSCOPY SCREENING] Future Scheduled 2022-03-25 HEPATITIS B VACCINES [facility] Test 14:48:42 (1 of 3 - Risk 3-dose series) [code = HEPATITIS B VACCINES (1 of 3 - Risk 3-dose series)] Future Scheduled 2022-03-25 COVID-19 VACCINE (3 - Me [facility] Test 14:48:42 Booster for Pfizer series) [code = COVID-19 VACCINE (3 - Booster for Pfizer series)] Future Scheduled 2022-03-25 65+ [facility] Test 14:48:42 VACCINE (4 - PPSV23 if available, else PCV20) [code = 65+ PNEUMOCOCCAL VACCINE (4 - PPSV23 if available, else PCV20)] Future Scheduled 2022-03-25 INFLUENZA VACCINE Method [facility] Test 14:48:42 [code = INFLUENZA VACCINE] Future Scheduled 2022-03-25 SHINGLES VACCINES (1 [facility] Test 14:48:42 of 2) [code = SHINGLES VACCINES (1 of 2)] Future Scheduled 2022-03-25 BREAST CANCER [facility] Test 14:48:42 SCREENING [code = BREAST CANCER SCREENING] Future Scheduled 2022-03-25 COLONOSCOPY SCREENING [facility] Test 14:48:42 [code = COLONOSCOPY SCREENING] Future Scheduled 2022-03-25 HEPATITIS B VACCINES [facility] Test 14:48:42 (1 of 3 - Risk 3-dose series) [code = HEPATITIS B VACCINES (1 of 3 - Risk 3-dose series)] Future Scheduled 2022-03-25 COVID-19 VACCINE (3 - Me [facility] Test 14:48:42 Booster for Pfizer series) [code = COVID-19 VACCINE (3 - Booster for Pfizer series)] Future Scheduled 2022-03-25 65+ [facility] Test 14:48:42 VACCINE (4 - PPSV23 if available, else PCV20) [code = 65+ PNEUMOCOCCAL VACCINE (4 - PPSV23 if available, else PCV20)] Future Scheduled 2022-03-25 INFLUENZA VACCINE Method [facility] Test 14:48:42 [code = INFLUENZA VACCINE] Future Scheduled 2022-03-25 SHINGLES VACCINES (1 [facility] Test 14:48:42 of 2) [code = SHINGLES VACCINES (1 of 2)] Future Scheduled 2022-03-25 BREAST CANCER [facility] Test 14:48:42 SCREENING [code = BREAST CANCER SCREENING] Future Scheduled 2022-03-25 COLONOSCOPY SCREENING [facility] Test 14:48:42 [code = COLONOSCOPY SCREENING] Future Scheduled 2022-03-25 HEPATITIS B VACCINES [facility] Test 14:48:42 (1 of 3 - Risk 3-dose series) [code = HEPATITIS B VACCINES (1 of 3 - Risk 3-dose series)] Future Scheduled 2022-03-25 COVID-19 VACCINE (3 - [facility] Test 14:48:42 Booster for Pfizer series) [code = COVID-19 VACCINE (3 - Booster for Pfizer series)] Future Scheduled 2022-03-25 65+ [facility] Test 14:48:42 VACCINE (4 - PPSV23 if available, else PCV20) [code = 65+ PNEUMOCOCCAL VACCINE (4 - PPSV23 if available, else PCV20)] Future Scheduled 2022-03-25 INFLUENZA VACCINE Method [facility] Test 14:48:42 [code = INFLUENZA VACCINE] Future Scheduled 2022-03-25 SHINGLES VACCINES (1 [facility] Test 14:48:42 of 2) [code = SHINGLES VACCINES (1 of 2)] Future Scheduled 2022-03-25 BREAST CANCER [facility] Test 14:48:42 SCREENING [code = BREAST CANCER SCREENING] Future Scheduled 2022-03-25 COLONOSCOPY SCREENING [facility] Test 14:48:42 [code = COLONOSCOPY SCREENING] Future Scheduled 2022-03-25 HEPATITIS B VACCINES [facility] Test 14:48:42 (1 of 3 - Risk 3-dose series) [code = HEPATITIS B VACCINES (1 of 3 - Risk 3-dose series)] Future Scheduled 2022-03-25 COVID-19 VACCINE (3 - [facility] Test 14:48:42 Booster for Pfizer series) [code = COVID-19 VACCINE (3 - Booster for Pfizer series)] Future Scheduled 2022-03-25 65+ [facility] Test 14:48:42 VACCINE (4 - PPSV23 if available, else PCV20) [code = 65+ PNEUMOCOCCAL VACCINE (4 - PPSV23 if available, else PCV20)] Future Scheduled 2022-03-25 INFLUENZA VACCINE Method [facility] Test 14:48:42 [code = INFLUENZA VACCINE] Future Scheduled 2022-03-04 SHINGLES VACCINES (1 [facility] Test 14:03:57 of 2) [code = SHINGLES VACCINES (1 of 2)] Future Scheduled 2022-03-04 BREAST CANCER [facility] Test 14:03:57 SCREENING [code = BREAST CANCER SCREENING] Future Scheduled 2022-03-04 COLONOSCOPY SCREENING Me [facility] Test 14:03:57 [code = COLONOSCOPY SCREENING] Future Scheduled 2022-03-04 HEPATITIS B VACCINES [facility] Test 14:03:57 (1 of 3 - Risk 3-dose series) [code = HEPATITIS B VACCINES (1 of 3 - Risk 3-dose series)] Future Scheduled 2022-03-04 COVID-19 VACCINE (3 - Me [facility] Test 14:03:57 Booster for Pfizer series) [code = COVID-19 VACCINE (3 - Booster for Pfizer series)] Future Scheduled 2022-03-04 65+ [facility] Test 14:03:57 VACCINE (4 - PPSV23 if available, else PCV20) [code = 65+ PNEUMOCOCCAL VACCINE (4 - PPSV23 if available, else PCV20)] Future Scheduled 2022-03-04 INFLUENZA VACCINE Method [facility] Test 14:03:57 [code = INFLUENZA VACCINE] Future Scheduled 2022-03-04 SHINGLES VACCINES (1 [facility] Test 14:03:57 of 2) [code = SHINGLES VACCINES (1 of 2)] Future Scheduled 2022-03-04 BREAST CANCER [facility] Test 14:03:57 SCREENING [code = BREAST CANCER SCREENING] Future Scheduled 2022-03-04 COLONOSCOPY SCREENING [facility] Test 14:03:57 [code = COLONOSCOPY SCREENING] Future Scheduled 2022-03-04 HEPATITIS B VACCINES [facility] Test 14:03:57 (1 of 3 - Risk 3-dose series) [code = HEPATITIS B VACCINES (1 of 3 - Risk 3-dose series)] Future Scheduled 2022-03-04 COVID-19 VACCINE (3 - Me [facility] Test 14:03:57 Booster for Pfizer series) [code = COVID-19 VACCINE (3 - Booster for Pfizer series)] Future Scheduled 2022-03-04 65+ [facility]:03:[facility] VACCINE (4 - PPSV23 if available, else PCV20) [code = 65+ PNEUMOCOCCAL VACCINE (4 - PPSV23 if available, else PCV20)] Future Scheduled 2022-03-04 INFLUENZA VACCINE Method [facility] Test 14:03:57 [code = INFLUENZA VACCINE] Future Scheduled 2022-03-04 SHINGLES VACCINES (1 [facility] Test 14:03:57 of 2) [code = SHINGLES VACCINES (1 of 2)] Future Scheduled 2022-03-04 BREAST CANCER [facility] Test 14:03:57 SCREENING [code = BREAST CANCER SCREENING] Future Scheduled 2022-03-04 COLONOSCOPY SCREENING [facility] Test 14:03:57 [code = COLONOSCOPY SCREENING] Future Scheduled 2022-03-04 HEPATITIS B VACCINES [facility] Test 14:03:57 (1 of 3 - Risk 3-dose series) [code = HEPATITIS B VACCINES (1 of 3 - Risk 3-dose series)] Future Scheduled 2022-03-04 COVID-19 VACCINE (3 - [facility] Test 14:03:57 Booster for Pfizer series) [code = COVID-19 VACCINE (3 - Booster for Pfizer series)] Future Scheduled 2022-03-04 65+ [facility] Test 14:03:57 VACCINE (4 - PPSV23 if available, else PCV20) [code = 65+ PNEUMOCOCCAL VACCINE (4 - PPSV23 if available, else PCV20)] Future Scheduled 2022-03-04 INFLUENZA VACCINE Method [facility] Test 14:03:57 [code = INFLUENZA VACCINE] Future Scheduled 2022-03-04 SHINGLES VACCINES (1 [facility] Test 14:03:57 of 2) [code = SHINGLES VACCINES (1 of 2)] Future Scheduled 2022-03-04 BREAST CANCER [facility] Test 14:03:57 SCREENING [code = BREAST CANCER SCREENING] Future Scheduled 2022-03-04 COLONOSCOPY SCREENING [facility] Test 14:03:57 [code = COLONOSCOPY SCREENING] Future Scheduled 2022-03-04 HEPATITIS B VACCINES [facility] Test 14:03:57 (1 of 3 - Risk 3-dose series) [code = HEPATITIS B VACCINES (1 of 3 - Risk 3-dose series)] Future Scheduled 2022-03-04 COVID-19 VACCINE (3 - [facility] Test 14:03:57 Booster for Pfizer series) [code = COVID-19 VACCINE (3 - Booster for Pfizer series)] Future Scheduled 2022-03-04 65+ [facility]AL [facility] Test 14:03:57 VACCINE (4 - PPSV23 if available, else PCV20) [code = 65+ PNEUMOCOCCAL VACCINE (4 - PPSV23 if available, else PCV20)] Future Scheduled 2022-03-04 INFLUENZA VACCINE Method [facility] Test 14:03:57 [code = INFLUENZA VACCINE] Future Scheduled 2022-02-11 SHINGLES VACCINES (1 [facility] Test 13:39:12 of 2) [code = SHINGLES VACCINES (1 of 2)] Future Scheduled 2022-02-11 BREAST CANCER [facility] Test 13:39:12 SCREENING [code = BREAST CANCER SCREENING] Future Scheduled 2022-02-11 COLONOSCOPY SCREENING [facility] Test 13:39:12 [code = COLONOSCOPY SCREENING] Future Scheduled 2022-02-11 HEPATITIS B VACCINES [facility] Test 13:39:12 (1 of 3 - Risk 3-dose series) [code = HEPATITIS B VACCINES (1 of 3 - Risk 3-dose series)] Future Scheduled 2022-02-11 COVID-19 VACCINE (3 - [facility] Test 13:39:12 Booster for Pfizer series) [code = COVID-19 VACCINE (3 - Booster for Pfizer series)] Future Scheduled 2022-02-11 65+ [facility]AL [facility] Test 13:39:12 VACCINE (4 - PPSV23 or PCV20) [code = 65+ PNEUMOCOCCAL VACCINE (4 - PPSV23 or PCV20)] Future Scheduled 2022-02-11 INFLUENZA VACCINE Method [facility] Test 13:39:12 [code = INFLUENZA VACCINE] Future Scheduled 2022-01-29 SHINGLES VACCINES (1 [facility] Test 14:07:20 of 2) [code = SHINGLES VACCINES (1 of 2)] Future Scheduled 2022-01-29 BREAST CANCER [facility] Test 14:07:20 SCREENING [code = BREAST CANCER SCREENING] Future Scheduled 2022-01-29 COLONOSCOPY SCREENING [facility] Test 14:07:20 [code = COLONOSCOPY SCREENING] Future Scheduled 2022-01-29 HEPATITIS B VACCINES [facility] Test 14:07:20 (1 of 3 - Risk 3-dose series) [code = HEPATITIS B VACCINES (1 of 3 - Risk 3-dose series)] Future Scheduled 2022-01-29 COVID-19 VACCINE (3 - [facility] Test 14:07:20 Booster for Pfizer series) [code = COVID-19 VACCINE (3 - Booster for Pfizer series)] Future Scheduled 2022-01-29 65+ PNEUMOCOCCAL [facility] Test 14:07:20 VACCINE (4 - PPSV23 or PCV20) [code = 65+ PNEUMOCOCCAL VACCINE (4 - PPSV23 or PCV20)] Future Scheduled 2022-01-29 INFLUENZA VACCINE Method [facility] Test 14:07:20 [code = INFLUENZA VACCINE] Future Scheduled 2022-01-29 SHINGLES VACCINES (1 [facility] Test 14:07:20 of 2) [code = SHINGLES VACCINES (1 of 2)] Future Scheduled 2022-01-29 BREAST CANCER [facility] Test 14:07:20 SCREENING [code = BREAST CANCER SCREENING] Future Scheduled 2022-01-29 COLONOSCOPY SCREENING [facility] Test 14:07:20 [code = COLONOSCOPY SCREENING] Future Scheduled 2022-01-29 HEPATITIS B VACCINES [facility] Test 14:07:20 (1 of 3 - Risk 3-dose series) [code = HEPATITIS B VACCINES (1 of 3 - Risk 3-dose series)] Future Scheduled 2022-01-29 COVID-19 VACCINE (3 - [facility] Test 14:07:20 Booster for Pfizer series) [code = COVID-19 VACCINE (3 - Booster for Pfizer series)] Future Scheduled 2022-01-29 65+ PNEUMOCOCCAL [facility] Test 14:07:20 VACCINE (4 - PPSV23 or PCV20) [code = 65+ PNEUMOCOCCAL VACCINE (4 - PPSV23 or PCV20)] Future Scheduled 2022-01-29 INFLUENZA VACCINE Method [facility] Test 14:07:20 [code = INFLUENZA VACCINE] Future Scheduled 2022-01-29 SHINGLES VACCINES (1 [facility] Test 14:07:20 of 2) [code = SHINGLES VACCINES (1 of 2)] Future Scheduled 2022-01-29 BREAST CANCER [facility] Test 14:07:20 SCREENING [code = BREAST CANCER SCREENING] Future Scheduled 2022-01-29 COLONOSCOPY SCREENING [facility] Test 14:07:20 [code = COLONOSCOPY SCREENING] Future Scheduled 2022-01-29 HEPATITIS B VACCINES [facility] Test 14:07:20 (1 of 3 - Risk 3-dose series) [code = HEPATITIS B VACCINES (1 of 3 - Risk 3-dose series)] Future Scheduled 2022-01-29 COVID-19 VACCINE (3 - Me [facility] Test 14:07:20 Booster for Pfizer series) [code = COVID-19 VACCINE (3 - Booster for Pfizer series)] Future Scheduled 2022-01-29 65+ PNEUMOCOCCAL [facility] Test 14:07:20 VACCINE (4 - PPSV23 or PCV20) [code = 65+ PNEUMOCOCCAL VACCINE (4 - PPSV23 or PCV20)] Future Scheduled 2022-01-29 INFLUENZA VACCINE Method [facility] Test 14:07:20 [code = INFLUENZA VACCINE] Future Scheduled 2022-01-29 SHINGLES VACCINES (1 [facility] Test 14:07:20 of 2) [code = SHINGLES VACCINES (1 of 2)] Future Scheduled 2022-01-29 BREAST CANCER [facility] Test 14:07:20 SCREENING [code = BREAST CANCER SCREENING] Future Scheduled 2022-01-29 COLONOSCOPY SCREENING [facility] Test 14:07:20 [code = COLONOSCOPY SCREENING] Future Scheduled 2022-01-29 HEPATITIS B VACCINES [facility] Test 14:07:20 (1 of 3 - Risk 3-dose series) [code = HEPATITIS B VACCINES (1 of 3 - Risk 3-dose series)] Future Scheduled 2022-01-29 COVID-19 VACCINE (3 - [facility] Test 14:07:20 Booster for Pfizer series) [code = COVID-19 VACCINE (3 - Booster for Pfizer series)] Future Scheduled 2022-01-29 65+ PNEUMOCOCCAL [facility] Test 14:07:20 VACCINE (4 - PPSV23 or PCV20) [code = 65+ PNEUMOCOCCAL VACCINE (4 - PPSV23 or PCV20)] Future Scheduled 2022-01-29 INFLUENZA VACCINE [facility] Test 14:07:20 [code = INFLUENZA VACCINE] Future Scheduled 2022-01-20 SHINGLES VACCINES (1 [facility] Test 06:12:34 of 2) [code = SHINGLES VACCINES (1 of 2)] Future Scheduled 2022-01-20 Screening for [facility] Test 06:12:34 malignant neoplasm of cervix (procedure) [code = [id number]] Future Scheduled 2022-01-20 BREAST CANCER [facility] Test 06:12:34 SCREENING [code = BREAST CANCER SCREENING] Future Scheduled 2022-01-20 COLONOSCOPY SCREENING [facility] Test 06:12:34 [code = COLONOSCOPY SCREENING] Future Scheduled 2022-01-20 HEPATITIS B VACCINES [facility] Test 06:12:34 (1 of 3 - Risk 3-dose series) [code = HEPATITIS B VACCINES (1 of 3 - Risk 3-dose series)] Future Scheduled 2022-01-20 COVID-19 VACCINE (3 - [facility] Test 06:12:34 Booster for Pfizer series) [code = COVID-19 VACCINE (3 - Booster for Pfizer series)] Future Scheduled 2022-01-20 65+ PNEUMOCOCCAL [facility] Test 06:12:34 VACCINE (4 - PPSV23 or PCV20) [code = 65+ PNEUMOCOCCAL VACCINE (4 - PPSV23 or PCV20)] Future Scheduled 2022-01-20 INFLUENZA VACCINE [facility] Test 06:12:34 [code = INFLUENZA VACCINE] Future Scheduled 2022-01-16 SHINGLES VACCINES (1 [facility] Test 12:09:25 of 2) [code = SHINGLES VACCINES (1 of 2)] Future Scheduled 2022-01-16 Screening for [facility] Test 12:09:25 malignant neoplasm of cervix (procedure) [code = [id number]] Future Scheduled 2022-01-16 BREAST CANCER [facility] Test 12:09:25 SCREENING [code = BREAST CANCER SCREENING] Future Scheduled 2022-01-16 COLONOSCOPY SCREENING [facility] Test 12:09:25 [code = COLONOSCOPY SCREENING] Future Scheduled 2022-01-16 HEPATITIS B VACCINES [facility] Test 12:09:25 (1 of 3 - Risk 3-dose series) [code = HEPATITIS B VACCINES (1 of 3 - Risk 3-dose series)] Future Scheduled 2022-01-16 COVID-19 VACCINE (3 - [facility] Test 12:09:25 Booster for Pfizer series) [code = COVID-19 VACCINE (3 - Booster for Pfizer series)] Future Scheduled 2022-01-16 65+ PNEUMOCOCCAL [facility] Test 12:09:25 VACCINE (4 - PPSV23 or PCV20) [code = 65+ PNEUMOCOCCAL VACCINE (4 - PPSV23 or PCV20)] Future Scheduled 2022-01-16 INFLUENZA VACCINE Method [facility] Test 12:09:25 [code = INFLUENZA VACCINE] Future Scheduled 2022-01-14 SHINGLES VACCINES (1 [facility] Test 04:11:46 of 2) [code = SHINGLES VACCINES (1 of 2)] Future Scheduled 2022-01-14 Screening for [facility] Test 04:11:46 malignant neoplasm of cervix (procedure) [code = [id number]] Future Scheduled 2022-01-14 BREAST CANCER [facility] Test 04:11:46 SCREENING [code = BREAST CANCER SCREENING] Future Scheduled 2022-01-14 COLONOSCOPY SCREENING [facility] Test 04:11:46 [code = COLONOSCOPY SCREENING] Future Scheduled 2022-01-14 HEPATITIS B VACCINES [facility] Test 04:11:46 (1 of 3 - Risk 3-dose series) [code = HEPATITIS B VACCINES (1 of 3 - Risk 3-dose series)] Future Scheduled 2022-01-14 COVID-19 VACCINE (3 - [facility] Test 04:11:46 Booster for Pfizer series) [code = COVID-19 VACCINE (3 - Booster for Pfizer series)] Future Scheduled 2022-01-14 65+ PNEUMOCOCCAL [facility] Test 04:11:46 VACCINE (4 - PPSV23 or PCV20) [code = 65+ PNEUMOCOCCAL VACCINE (4 - PPSV23 or PCV20)] Future Scheduled 2022-01-14 INFLUENZA VACCINE [facility] Test 04:11:46 [code = INFLUENZA VACCINE] Future Scheduled 2021-08-26 Screening for [facility] Test 13:02:23 malignant neoplasm of cervix (procedure) [code = [id number]] Future Scheduled 2021-08-26 BREAST CANCER [facility] Test 13:02:23 SCREENING [code = BREAST CANCER SCREENING] Future Scheduled 2021-08-26 COLONOSCOPY SCREENING [facility] Test 13:02:23 [code = COLONOSCOPY SCREENING] Future Scheduled 2021-08-26 Screening for [facility] Test 13:02:23 malignant neoplasm of lung (procedure) [code = [id number]] Future Scheduled 2021-08-26 SHINGLES VACCINES (#1) [facility] Test 13:02:23 [code = SHINGLES VACCINES (#1)] Future Scheduled 2021-08-26 COVID-19 VACCINE (3 - [facility] Test 13:02:23 Pfizer risk 4-dose series) [code = COVID-19 VACCINE (3 - Pfizer risk 4-dose series)] Future Scheduled 2021-08-26 65+ [facility] 13:02:23 VACCINE (4 of 4 - PPSV23) [code = 65+ PNEUMOCOCCAL VACCINE (4 of 4 - PPSV23)] Future Scheduled 2021-08-26 INFLUENZA VACCINE Method [facility] Test 13:02:23 [code = INFLUENZA VACCINE] Encounters Start End Encounter Admission Attending Care Care Encounter Source Date/Time Date/Time Type Type Clinicians Facility Department ID 2022-02-18 Outpatient CHW CHW [id number] [place] 14:30:[address] [place] [address] 2021-07-14 Outpatient SADIKOVIC, [facility] [id number] [place] 09:33:51 [facility] 2021-06-02 Outpatient HEMATPOUR, [facility] [id number] [place] 13:58:59 [facility] 2021-04-28 Outpatient HEMATPOUR, [facility] [id number] [place] 11:21:22 [facility] 2021-03-20 Emergency [facility] [id number] Univers [facility]:07[facility] 2020-[facility]-12 Outpatient HEMATPOUR, [facility] [id number] [place] 08:16:46 [facility] 2020-10-31 Outpatient HEMATPOUR, [facility] [id number] [place] 09:44:50 [facility] 2020-09-30 Outpatient HEMATPOUR, [facility] [id number] [place] 13:16:03 [facility] 2022-05-06 2022-05-06 Emergency [facility] [id number] Univers 14:13:00 18:19:00 ANETTE barbosa [facility] 2022-05-06 2022-05-06 [facility] 1.2.542.865 [id number] Univers 14:13:00 18:19:00 Anette BULLOCK 350.1.13.10 [facility] 4.2.7.2.686 [facility] [id number] [address] 2022-05-06 2022-05-06 [facility], [facility] 1.2.840.114 [id number] Univers 00:00:00 00:00:00 [facility] 350.1.13.10 i ty of [place] [id number] [address] 2022-04-22 2022-04-22 Emergency X [facility] ERT [id number] Univers 13:55:00 17:00:00 [facility] 2022-04-22 2022-04-22 Emergency [facility] 1.2.202.608 [id number] Univers 13:55:00 17:00:00 Paulette S [place] 350.1.13.10 i ty of [place] 4.2.7.2.686 [phone] [address] 2022-04-07 2022-04-07 Outpatient R [facility] [id number] Univers 20:40:00 20:40:00 ATTENDING ity [facility] 2022-04-07 2022-04-07 Telephone Devin 1.2.840.1 [id number] [id number] Univers 00:00:00 00:00:00 Robbi R 50305.1.1 i ty of 3.104.2.7 [place] .3.858598 Medica l .8 [place] 2022-03-05 2022-03-05 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 Operator Santiago Cardenas 1.2.840.1 [id number] Univers 13:45:00 14:00:00 Visit [facility] 81604.1.1 ity of 3.104.2.7 [place] .3.192668 Medica l .8 [place] 2022-03-05 2022-03-05 Office Ronald JOSÉ ANTONIO 1.2.509.521 [id number] Univers 13:00:00 13:30:00 Visit [facility] 350.1.13.10 i ty [place] [id number] [address] 2022-03-05 2022-03-05 Outpatient R [facility] [id number] Univers 13:00:00 13:00:00 SANTIAGO ity [facility] 2022-02-26 2022-02-26 Outpatient R [facility] [id number] Univers 08:30:00 08:30:00 SANTIAGO itcharlie [facility] 2022-02-26 2022-02-26 Outpatient R [facility] [id number] Univers 08:30:00 08:30:00 SANTIAGO itcharlie [facility] 2022-02-17 2022-02-17 Transition Stevo, 1.2.840.7 [id number] Univers 00:00:00 00:00:00 of Care Isaias Arredondo 06546.1.1 it y of 3.104.2.7 [place] .3.185699 Medica l .8 [place] 2022-02-10 2022-02-16 Inpatient X FRANK [facility] [id number] Univers 22:59:00 19:27:00 TOMY ity [facility] 2022-02-10 2022-02-16 Hospital Reilly Means 1.2.840.1 [id number] Univers 22:59:00 19:27:00 Encounter Ofe Shields 09516.1.1 ity of [place] 3.104.2.7 [place] .3.872189 Medica l .8 [place] 2022-02-11 2022-02-11 Telephone [facility], 1.2.840.5 [id number] [id number] Univers 00:00:00 00:00:00 Santiago 26122.1.1 ity of 3.104.2.7 [place] .3.764679 Medica l .8 [place] 2022-02-10 2022-02-10 Travel 1.2.840.1 1.2.199.006 [id number] Univers 00:00:00 00:00:00 98435.1.1 350.1.13.10 ity of 3.104.2.7 4.2.7.3.698 [place] .3.338614 084.8 Medica l .8 [place] 2022-01-30 2022-01-30 Telephone East, 1.2.840.8 [id number] Univers 00:00:00 00:00:00 Santiago 94506.1.1 ity of 3.104.2.7 [place] .3.900877 Medica l .8 [place] 2022-01-06 2022-01-06 Orders Doctor FERMIN 1.2.840.114 [id number] Univers 00:00:00 00:00:00 Only Unassigned, JACKELINE 350.1.13.10 ity of Wing HOSPITAL 4.2.7.2.686 Yomi as [phone] [facility] 009 Branch 2021-12-25 2021-12-25 Orders Doctor FERMIN 1.2.840.114 [id number] Univers 00:00:00 00:00:00 Only Unassigned, JACKELINE 350.1.13.10 ity of Wing HOSPITAL 4.2.7.2.686 Yomi as [id number] [facility] 009 [place] 2021-12-12 2021-12-13 Emergency X Bill GUO [facility] ERT [id number] Univers 23:53:00 01:52:00 ity of [facility] 2021-12-12 2021-12-13 Emergency Sanket [facility] 1.2.840.114 [id number] Univers 23:53:00 01:52:00 Kiersten BULLOCK 350.1.13.10 i ty [place].2.686 [place] [id number] [facility] 084 [place] 2021-11-20 2021-11-20 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 Operator [facility] UN[facility]ERSIT 1.2.840.114 [id number] Univers 09:45:00 10:00:00 Visit [facility] 350.1.13.10 ity of [place] [id number] [facility] 316 Branch 2021-11-20 2021-11-20 Office [facility]3] 1.2.007.381 [id number] 9084 Univers 08:30:00 09:00:00 Visit [facility] 350.1.13.10 i ty of [place] 4[place] [id number] [facility] 089 Branch 2021-11-20 2021-11-20 Outpatient R [facility] [id number] Univers 08:30:00 08:30:00 SANTIAGO charlie [facility] 2021-11-20 2021-11-20 Outpatient R RONALD, [facility] [id number] Univers 08:30:00 08:30:00 SANTIAGO barbosa [facility] 2021-11-20 2021-11-20 Outpatient R RONALD [facility] [id number] Univers 08:30:00 08:30:00 SANTIAGO charlie [facility] 2021-11-20 2021-11-20 Outpatient R EAST, [facility] [id number] Univers 08:30:00 08:30:00 [facility] 2021-10-24 2021-10-24 Emergency X NIXONWA [facility] ERT [id number] Univers 16:27:00 22:26:00 [facility] 2021-10-24 2021-10-24 Emergency X KATELYNJULIO CESARFIDEL [facility] ERT [id number] Univers 16:27:00 22:26:00 [facility] 2021-10-24 2021-10-24 Emergency Reilly Means [facility] 1.2.840. 114 [id number] Univers 16:27:00 22:26:00 EsvinKrishnajose Christian [place] 350.1.13.10 ity [facility] 4.2.7.2.6 [facility] [id number] [address] 2021-10-23 2021-10-24 Emergency X [facility]NJULIO [facility] ERT [id number] Univers 20:22:00 02:57:00 [facility] 2021-10-23 2021-10-24 Emergency [facility]ulio [facility] 1.2.773.006 [id number] Univers 20:22:00 02:57:00 Charity [facility] 350.1.13.10 ity [facility] 4.2.7.2.[address] [place] [id number] 2021-09-07 2021-09-07 Outpatient R SELF, [facility] [id number] Univers 08:00:00 08:00:00 GADIEL barbosa o f [facility] 2021-09-07 2021-09-07 Outpatient [facility] [id number] Univers 08:00:00 08:00:00 GADIEL rodas [facility] 2021-08-21 2021-08-21 Outpatient R [facility] [id number] Univers 10:45:00 10:45:00 SANTIAGO barbosa [facility] 2021-08-21 2021-08-21 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 Operator Santiago Cardenas 1.2.840.1 [id number] Univers 10:45:00 10:45:00 Visit [facility] 16293.1.1 ity of 3.104.2.7 [place] .3.424698 Medica l .8 [place] 2021-08-21 2021-08-21 Office [facility], 1.2.840.7 [id number] Univers 08:30:00 09:00:00 Visit Santiago 01974.1.1 ity of 3.104.2.7 [place] .3.723485 Medica l .8 [place] 2021-08-21 2021-08-21 Office [facility] 1.2.365.459 [id number] [id number] Univers 08:30:00 09:00:00 Visit Santiago [facility] 350.1.13.10 i ty of CLINICS 4[place] [id number] [facility] 089 [place] 2021-08-21 2021-08-21 Outpatient R [facility] [id number] Univers 08:30:00 08:30:00 SANTIAGO barbosa [facility] 2021-08-21 2021-08-21 Travel 1.2.840.1 1.2.715.672 [id number] [id number] Univers 00:00:00 00:00:00 50346.1.1 350.1.13.10 ity of 3.104.2.7 4.2.7.3.698 [place] .3.518400 084.8 Medica l .8 [place] 2021-08-14 2021-08-14 Telephone East, 1.2.840.6 [id number] Univers 00:00:00 00:00:00 Santiago 24613.1.1 ity of 3.104.2.7 [place] .3.761488 Medica l .8 Branch 2021-08-13 2021-08-13 Telephone Ronald 1.2.840.3 [id number] Univers 00:00:00 00:00:00 Santiago 25468.1.1 ity of 3.104.2.7 [place] .3.822273 Medica l .8 Branch 2021-08-11 2021-08-11 Outpatient [facility] [id number] Univers 08:00:00 08:00:00 [facility] 2021-08-05 2021-08-05 Inpatient RAUL Lund[facility] [id number] [facility] 05:24:00 05:24:00 Mike 31 [facility] 2021-07-20 2021-07-20 Outpatient [facility] [id number] Univers 10:00:00 10:00:00 [facility] 2021-07-14 2021-07-14 Office Pankaj, UTP 6400 1.2.840.114 13 [id number] [place] 08:45:00 09:34:[address] 350.1.13.58 Health 9.2.7.2.686 [id number] 1 2021-07-09 2021-07-09 Telephone Hematpour, UTP 6400 1.2.840.114 [id number] [place] 00:00:00 00:00:[address] 350.1.13.58 Health 9.2.7.2.686 [id number] 1 2021-07-09 2021-07-09 Telephone H[place]pour, UTP 6400 1.2.840.114 [id number] PR 00:00:00 00:00:[address] 350.1.13.58 Health 9.2.7.2.686 [id number] 1 2021-07-03 2021-07-03 Outpatient Marika [facility] [id number] Univers 08:00:00 08:00:00 SANTIAGO barbosa of [facility] 2021-06-17 2021-06-17 Inpatient RAUL Lund, EDUARDOCL INTE.02 [id number] [facility] 10:56:00 14:36:00 Mike Villeda [facility] 2021-06-15 2021-06-15 Outpatient R SELF, [facility] [id number] Univers 10:15:00 11:07:21 GADIEL rodas [facility] 2021-06-15 2021-06-15 Outpatient R SELF, [facility] [id number] Univers 10:15:00 10:15:00 GADIEL barbosa o [facility] 2021-06-15 2021-06-15 Outpatient R SELF, [facility] [id number] Univers 10:15:00 10:15:00 GADIEL rodas [facility] 2021-06-15 2021-06-15 Orders Doctor 1.2.840.8 [id number] Univers 00:00:00 00:00:00 Only Unassigned, 07211.1.1 ity of Wing 3.104.2.7 [place] .3.680686 Medica l .8 [place] 2021-06-15 2021-06-15 Travel 1.2.840.1 1.2.760.212 [id number] Univers 00:00:00 00:00:00 35813.1.1 350.1.13.10 ity of 3.104.2.7 4.2.7.3.698 [place] .3.799529 084.8 Medica l .8 [place] 2021-06-11 2021-06-11 Refill [facility], UN[facility]ERS[facility] 1.2.775.313 [id number] 9185 Univers 00:00:00 00:00:00 Santiago [facility] 350.1.13.10 i ty of CLINICS 4[place] 534.0729627 [facility] 089 [place] 2021-06-11 2021-06-11 Refill East, 1.2.840.1 [id number] Univers 00:00:00 00:00:00 Santiago 43158.1.1 ity of 3.104.2.7 [place] .3.532489 Medica l .8 [place] 2021-06-05 2021-06-05 Outpatient R EAST, [facility] [id number] Univers 09:00:00 09:00:00 SANTIAGO ity of [facility] 2021-06-02 2021-06-02 Telephone East, UNIVERSIT 1.2.840.114 [id number] Univers 00:00:00 00:00:00 Santiago [facility] 350.1.13.10 i ty of CLIN[place] 4[place].2.[place] [id number] [facility] 089 [place] 2021-06-02 2021-06-02 Telephone East, 1.2.840.1 [id number] [id number] Univers 00:00:00 00:00:00 Santiago 91771.1.1 ity of 3.104.2.7 [place] .3.269852 Medica l .8 [place] 2021-05-29 2021-05-29 Telephone East, 1.2.840.2 [id number] [id number] Univers 00:00:00 00:00:00 Santiago 40230.1.1 ity of 3.104.2.7 [place] .3.438174 Medica l .8 [place] 2021-05-29 2021-05-29 Telephone East, 1.2.840.9 [id number] 902 [id number] Univers 00:00:00 00:00:00 Santiago 20249.1.1 ity of 3.104.2.7 [place] .3.087558 Medica l .8 [place] 2021-05-25 2021-05-25 Outpatient R SELF, [facility] [id number] Univers 08:00:00 08:00:00 GADIEL vogel f [facility] 2021-04-29 2021-04-29 Outpatient R LALA, [facility] [id number] Univers 08:00:00 08:00:00 NIKOLAI barbosa of [facility] 2021-04-28 2021-04-28 Telephone [place], UTP 6400 1.2.840.114 [id number] PR 00:00:00 00:00:[address] 350.1.13.[address] [facility] 9.2.7.2.686 [id number] 1 2021-04-28 2021-04-28 Telephone Jailyn, 1.2.840.5 [id number] Methodi 00:00:00 00:00:[address] 3.430.2.7 Hospit a .3.646580 l .8 2021-03-31 2021-03-31 Orders Carol Ann, 1.2.840.1 [id number] Methodi 00:00:00 00:00:00 Only Sarai Lieberman 68492.1.1 979 s t 3.430.2.7 Hospit a .3.435927 l .8 2021-03-30 2021-03-30 [id number] Univers 08:45:00 08:45:00 GADIEL rodas [facility] 2021-03-24 2021-03-24 Telephone Jailyn, 1.2.840.7 [id number] Methodi 00:00:00 00:00:[address] 3.430.2.7 Hospit a .3.205654 l .8 2021-02-13 2021-02-13 Telephone Ronald, 1.2.840.2 [id number] [id number] Univers 00:00:00 00:00:00 Santiago 34134.1.1 ity of 3.104.2.7 [place] .3.136026 Medica l .8 [place] 2021-01-28 2021-01-28 [facility] [id number] Univers 08:45:00 09:37:00 NIKOLAI barbosa of [facility] 2021-01-28 2021-01-28 Travel 1.2.840.1 1.2.121.250 2118 [id number] Univers 00:00:00 00:00:00 27522.1.1 350.1.13.10 ity of 3.104.2.7 4.2.7.3.698 [place] .3.129685 084.8 Medica l .8 Branch 2021-01-19 2021-01-19 Telephone Prabhu, 1.2.840.1 [id number] 2100 [id number] Method 00:00:00 00:00:[address] 3.430.2.7 Hospit a .3.454378 l .8 2021-01-04 2021-01-04 Letter Shelia, 1.2.840.7 [id number] 696 Univers 00:00:00 00:00:00 (Out) Dagoberto H 29492.1.1 ity of 3.104.2.7 [place] .3.528866 Medica l .8 Branch 2021-01-04 2021-01-04 Letter Shelia, 1.2.840.9 [id number] 696 Univers 00:00:00 00:00:00 (Out) Dagoberto H 50399.1.1 ity of 3.104.2.7 [place] .3.666529 Medica l .8 Branch 2021-01-03 2021-01-03 Letter Shelia, 1.2.840.8 [id number] 78539 790 Univers 00:00:00 00:00:00 (Out) Dagoberto H 84297.1.1 ity of 3.104.2.7 [place] .3.443897 Medica l .8 Branch 2021-01-03 2021-01-03 Letter Shelia, 1.2.840.6 [id number] 790 Univers 00:00:00 00:00:00 (Out) Dagoberto H 04111.1.1 ity of 3.104.2.7 [place] .3.048742 Medica l .8 Branch 2021-01-02 2021-01-02 Outpatient R [facility] [id number] Univers 13:40:00 13:40:00 ity of [facility] 2021-01-02 2021-01-02 Laboratory Cuba Franks 1.2.840.8 [id number] Univers 12:14:13 12:57:34 Only Lab, [place] 60567.1.1 ity of 3.104.2.7 [place] .3.842100 Medica l .8 Branch 2021-01-02 2021-01-02 Laboratory [place] Franks 1.2.840.6 [id number] [id number] Univers 12:14:13 12:57:34 Only Lab, [facility] [place] 66663.1.1 ity of 3.104.2.7 [place] .3.056335 Medica l .8 Branch 2021-01-02 2021-01-02 Travel 1.2.840.1 1.2.579.729 0061 2306 Univers 00:00:00 00:00:00 37129.1.1 350.1.13.10 ity of 3.104.2.7 4.2.7.3.698 [place] .3.269384 084.8 Medica l .8 Branch 2021-01-02 2021-01-02 Letter Doctor 1.2.840.2 [id number] 948 Univers 00:00:00 00:00:00 (Out) Unassigned, 00814.1.1 ity of Wing 3.104.2.7 [place] .3.979366 Medica l .8 Branch 2021-01-02 2021-01-02 Letter Doctor 1.2.840.1 [id number] 946 Univers 00:00:00 00:00:00 (Out) Unassigned, 15920.1.1 ity of Wing 3.104.2.7 [place] .3.898317 Medica l .8 Branch 2021-01-02 2021-01-02 Travel 1.2.840.1 1.2.929.757 0574 2306 Univers 00:00:00 00:00:00 33389.1.1 350.1.13.10 ity of 3.104.2.7 4.2.7.3.698 [place] .3.113816 084.8 Medica l .8 Branch 2021-01-02 2021-01-02 Letter Doctor 1.2.840.7 [id number] 948 Univers 00:00:00 00:00:00 (Out) Unassigned, 42481.1.1 ity of Wing 3.104.2.7 [place] .3.898660 Medica l .8 [place] 2021-01-02 2021-01-02 Letter Doctor 1.2.840.8 [id number] 946 Univers 00:00:00 00:00:00 (Out) Unassigned, 58518.1.1 ity of Wing 3.104.2.7 [place] .3.822433 Medica l .8 Branch 2020-12-22 2020-12-22 Telephone Beltran, 1.2.840.8 [id number] 862 73753 Univers 00:00:00 00:00:00 Robbi Hairston 29676.1.1 i ty of 3.104.2.7 [place] .3.635228 Medica l .8 Branch 2020-12-22 2020-12-22 Telephone Beltran, 1.2.840.1 [id number] 862 03572 Univers 00:00:00 00:00:00 Robbi Hairston 50473.1.1 i ty of 3.104.2.7 [place] .3.494463 Medica l .8 [place] 2020-12-12 2020-12-12 Office [facility], UTP 6400 1.2.840.114 12 [id number] PR 07:42:02 08:18:[address] 350.1.13.58 Health 9.2.7.2.686 [id number] 1 2020-12-12 2020-12-12 Office [place], UTP 6400 1.2.840.114 12 [id number] 07:42:02 08:18:[address] 350.1.13.58 9.2.7.2.686 727.3864701 1 2020-12-09 2020-12-09 Telephone Meisenbach, 1.2.840.1 [id number] Methodi 00:00:00 00:00:00 Sarai Lieberman 63434.1.1 316 s t 3.430.2.7 Hospit a .3.323856 l .8 2020-12-08 2020-12-08 [facility], 1.2.840.1 [id number] 2100 237827 Methodi 12:35:54 23:59:00 Encounter Ray 77626.1.[address] 3.430.2.7 Hospit a .3.416007 l .8 2020-12-08 2020-12-08 Lab [facility], 1.2.840.1 [id number] 92700 97020 Methodi 17:25:00 17:30:[address] 3.430.2.7 Hospit a .3.741092 l .8 2020-12-08 2020-12-08 [facility], 1.2.840.1 [id number] 41075 50990 Methodi 10:30:00 11:39:56 Visit Ray 82474.1.[address] 3.430.2.7 Hospit a .3.173919 l .8 2020-12-08 2020-12-08 Travel 1.2.840.1 1.2.455.247 2015 843623 Methodi 00:00:00 00:00:[address] 3.430.2.7 0.2.7.3.698 Ho spita .3.866992 084.8 l .8 2020-12-02 2020-12-02 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 Operator Santiago Cardenas 1.2.840.1 [id number] [facility] 10:20:06 10:36:19 Visit [facility] 85956.1.1 ity of 3.104.2.7 [place] .3.733268 Medica l .8 Branch 2020-12-02 2020-12-02 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 Operator Santiago Cardenas 1.2.840.1 [id number] [facility] 10:20:06 10:36:19 Visit [facility] 49369.1.1 ity of 3.104.2.7 [place] .3.613857 Medica l .8 [place] 2020-12-02 2020-12-02 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 Operator [facility]ERSIT 1.2.840.114 8 [id number] 10:20:06 10:36:19 Visit [facility] 350.1.13.10 [facility] 4.2.7.2.686 368.3300087 [facility] 2020-12-02 2020-12-02 Office Ronald, 1.2.840.2 [id number] 528 Univers 08:31:37 09:01:37 Visit Santiago 08280.1.1 ity of 3.104.2.7 [place] .3.606558 Medica l .8 [place] 2020-12-02 2020-12-02 Outpatient R [facility] [id number] Univers 09:00:00 09:00:00 SANTIAGO ity [facility] 2020-11-25 2020-11-25 Office Devin, 1.2.840.8 [id number] 865 Univers 11:06:30 11:58:14 Visit Robbi Hairston 83875.1.1 i ty of 3.104.2.7 [place] .3.461936 Medica l .8 [place] 2020-11-25 2020-11-25 Office Devin, 1.2.840.3 [id number] 865 Univers 11:06:30 11:58:14 Visit Robbi Hairston 76981.1.1 i ty of 3.104.2.7 [place] .3.322316 Medica l .8 [place] 2020-11-25 2020-11-25 [facility] 1.2.840.114 [id number] 11:06:30 11:58:14 Visit Robbi Hairston [employer]PER[employer] 350.1.13.10 [facility] 4.2.7.2.686 MATERNAL 300.6292186 & CHILD [address] [place] [address] 2020-11-25 2020-11-25 Outpatient R [facility] [id number] Univers 11:00:00 11:00:00 ity [facility] 2020-11-25 2020-11-25 Telephone Devin, 1.2.840.2 [id number] 855 03213 Univers 00:00:00 00:00:00 Robbi Hairston 37638.1.1 i ty of 3.104.2.7 [place] .3.149141 Medica l .8 Branch 2020-11-25 2020-11-25 Refill [place], 1.2.840.2 [id number] 27757 592 Univers 00:00:00 00:00:00 Santiago 57185.1.1 ity of 3.104.2.7 [place] .3.739028 Medica l .8 Branch 2020-11-25 2020-11-25 Travel 1.2.840.1 1.2.133.278 9383 0247 Univers 00:00:00 00:00:00 60671.1.1 350.1.13.10 ity of 3.104.2.7 4.2.7.3.698 [place] .3.862810 084.8 Medica l .8 Branch 2020-11-25 2020-11-25 Orders Doctor 1.2.840.7 [id number] 57043 064 Univers 00:00:00 00:00:00 Only Unassigned, 02440.1.1 ity of Wing 3.104.2.7 [place] .3.067334 Medica l .8 Branch 2020-11-25 2020-11-25 Telephone Beltran, 1.2.840.9 [id number] 855 27959 Univers 00:00:00 00:00:00 Robbi R 44577.1.1 i ty of 3.104.2.7 [place] .3.161718 Medica l .8 Branch 2020-11-25 2020-11-25 Refill [facility], 1.2.840.4 [id number] 592 Univers 00:00:00 00:00:00 [place] 90348.1.1 ity of 3.104.2.7 [place] .3.829853 Medica l .8 Branch 2020-11-25 2020-11-25 Travel 1.2.840.1 1.2.464.092 2121 0247 Univers 00:00:00 00:00:00 42379.1.1 350.1.13.10 ity of 3.104.2.7 4[place]7.3.698 [place] .3.843613 084.8 Medica l .8 Branch 2020-11-25 2020-11-25 Orders Doctor 1.2.840.4 [id number] 40663 064 Univers 00:00:00 00:00:00 Only Unassigned, 87710.1.1 ity of Wing 3.104.2.7 [place] .3.158961 Medica l .8 Branch 2020-11-25 2020-11-25 [facility] 1.2.875.054 1668 4592 00:00:00 00:00:00 [facility] 350.1.13.10 [facility] 4.2.7.2.686 [id number] 089 2020-11-25 2020-11-25 [facility] 1.2.447.794 9200 0821 00:00:00 00:00:00 Robbi Hairston [employer] 350.1.13.10 [facility] 4.2.7.2.686 MATERNAL 146.0213246 & CHILD [address] [place] [address] 2020-11-14 2020-11-14 Abstract Rodas, 1.2.840.1 [id number] 33513 63202 Methodi 00:00:00 00:00:[address] 3.430.2.7 Hospit a .3.006904 l .8 2020-11-14 2020-11-14 Telephone Rodas, 1.2.840.1 [id number] 2100 821383 Methodi 00:00:00 00:00:[address] 3.430.2.7 Hospit a .3.290919 l .8 2020-11-12 2020-11-12 Outpatient R [facility] [id number] Univers 08:30:00 08:30:00 SANTIAGO barbosa [facility] 2020-11-07 2020-11-07 Telephone Agustina Ortiz 6400 1.2.840.11 4 [id number] [place] 00:00:00 00:00:00 Agustina Ortiz 350.1.13.[address] [facility] 9.2.7.2.686 [id number] 1 2020-11-07 2020-11-07 Telephone Diana, UTP 6400 1.2.840.114 124 [id number] 00:00:00 00:00:[address] 350.1.13.58 9.2.7.2.686 [id number] 1 2020-10-31 2020-10-31 Office Hematpoliz, UTP 6400 1.2.840.114 12 [id number] [place] 07:54:00 09:45:[address] 350.1.13.58 Health 9.2.7.2.686 [id number] 1 2020-10-30 2020-10-30 Abstract Rody Maguire UTP 6400 1.2.840.1 14 [id number] [place] 00:00:00 00:00:[address] 350.1.13.58 Health 9.2.7.2.686 [id number] 1 2020-10-29 2020-10-29 Refill [place], 1.2.840.7 [id number] 00569 400 Univers 00:00:00 00:00:00 [place] 79754.1.1 ity of 3.104.2.7 [place] .3.217691 Medica l .8 [place] 2020-10-29 2020-10-29 Refill [place], 1.2.840.9 [id number] 22078 400 Univers 00:00:00 00:00:00 [place] 73305.1.1 ity of 3.104.2.7 [place] .3.780679 Medica l .8 [place] 2020-10-27 2020-10-27 Telephone Chihara, 1.2.840.4 [id number] 21 [id number] Methodi 00:00:00 00:00:[address] 3.430.2.7 Hospit a .3.709828 l .8 2020-10-24 2020-10-24 Telephone Rodas, 1.2.840.1 [id number] 2100 573925 Methodi 00:00:00 00:00:[address] 3.430.2.7 Hospit a .3.006685 l .8 2020-10-22 2020-10-22 Outpatient R SELF, [facility] [id number] Univers 13:00:00 13:00:00 GADIEL rodas [facility] 2020-10-22 2020-10-22 Travel 1.2.840.1 1.2.141.303 [id number] [id number] Univers 00:00:00 00:00:00 18385.1.1 350.1.13.10 ity of 3.104.2.7 [place].3.698 [place]3.[place] 084.8 Med[place] .8 [place] 2020-10-22 2020-10-22 Travel 1.2.840.1 1.2.098.621 5480 3839 Univers 00:00:00 00:00:00 36565.1.1 350.1.13.10 ity of 3.104.2.7 [place].698 [place].946717 084.8 Med[place] l .8 [place] 2020-10-13 2020-10-13 Outpatient R SELF, [facility] [id number] Univers 08:45:00 08:45:00 GADIEL vogel [facility] 2020-10-06 2020-10-12 Telemedici Chihara, 1.2.840.1 [id number] Methodi 15:30:00 00:08:46 ne Ray [address]35.1.[address] 3.430.2.7 Hospit a .3.608023 l .8 2020-09-30 2020-09-30 Telephone Chihara, 1.2.840.2 [id number] Methodi 00:00:00 00:00:[address] 3.430.2.7 Hospit a .3.149933 l .8 2020-09-21 2020-09-21 Travel 1.2.840.1 1.2.258.455 5641 [id number] Methodi 00:00:00 00:00:[address] 3.430.2.7 0.2.7.3.698 Ho spita .3.618008 084.8 l .8 2020-09-06 2020-09-06 [facility] 1.2.840.1 [id number] Methodi 17:42:30 23:59:[address] 3.430.2.7 Hospit a .3.633512 l .8 2020-09-06 2020-09-06 [facility], 1.2.840.1 [id number] 2100 [id number] Methodi 16:50:00 17:41:00 Encounter Ray 77928.1.[address] 3.430.2.7 Hospit a .3.241541 l .8 2020-09-05 2020-09-05 [facility], 1.2.840.1 [id number] Methodi 09:17:00 19:45:00 Encounter Ray [address]29.1.[address] 3.430.2.7 Hospit a .3.464624 l .8 2020-09-05 2020-09-05 Surgery [facility], 1.2.840.1 [id number] Methodi 11:30:00 13:15:[address] 3.430.2.7 Hospit a .3.298785 l .8 2020-09-05 2020-09-05 Anesthesia [facility], 1.2.840.1 [id number] 868 [id number] Methodi 11:27:00 12:20:00 Event Saraswathi 64770.1.1 243 s t V. 3.430.2.7 Hospit a .3.327641 l .8 2020-09-05 2020-09-05 Travel 1.2.840.1 1.2.083.980 6451 [id number] Methodi 00:00:00 00:00:[address] 3.430.2.7 0.2.7.3.698 Ho spita .3.704058 084.8 l .8 2020-09-04 2020-09-04 Telephone [place], 1.2.840.1 [id number] Methodi 00:00:00 00:00:00 Sarai Lieberman 18921.1.1 762 s t 3.430.2.7 Hospit a .3.261061 l .8 2020-09-02 2020-09-02 Telephone [place], 1.2.840.7 [id number] Methodi 00:00:00 00:00:00 Sarai Lieberman 33293.1.1 344 s t 3.430.2.7 Hospit a .3.010373 l .8 2020-08-29 2020-08-[id number] [facility] 10:20:00 14:10:00 Outpatient r [place] 00 l [facility] 2020-08-29 2020-08-30 Outpatient HEMATPOUR, [facility] CAR 7500 [facility] 05:20:00 09:10:00 [place] 2020-08-06 2020-08-06 Office [place], 1.2.840.7 [id number] [facility] 08:03:23 09:17:49 Visit Sanitago 84417.1.1 ity of 3.104.2.7 [place] .3.024260 Medica l .8 [place] 2020-08-06 2020-08-06 Outpatient R [facility] [id number] Univers 08:30:00 08:30:00 SANTIAGO barbosa of [facility] 2020-07-14 2020-07-14 Outpatient R SELF, [facility] [id number] Univers 09:30:00 09:30:00 GADIEL barbosa o f [facility] 2020-07-14 2020-07-14 Travel 1.2.840.1 1.2.816.223 1733 [id number] Univers 00:00:00 00:00:00 84282.1.1 350.1.13.10 ity of 3.104.2.7 4[place]7.3.698 [place] .3.215509 084.8 Medica l .8 [place] 2020-07-14 2020-07-14 Orders Doctor 1.2.840.2 [id number] Univers 00:00:00 00:00:00 Only Unassigned, 91055.1.1 ity of Wing 3.104.2.7 [place] .3.086009 Medica l .8 [place] 2020-06-16 2020-06-16 Outpatient R [facility] [id number] Univers 08:00:00 08:00:00 GADIEL barbosa o f [facility] 2020-06-06 2020-06-06 Telephone East, 1.2.840.4 [id number] [id number] Univers 00:00:00 00:00:00 Santiago 68720.1.1 ity of 3.104.2.7 [place] .3.368074 Medica l .8 [place] 2020-06-04 2020-06-04 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 Operator Santiago Cardenas 1.2.840.1 [id number] Univers 09:31:58 09:40:12 Visit [facility] 76909.1.1 ity of 3.104.2.7 [place] .3.445603 Medica l .8 [place] 2020-06-04 2020-06-04 Office JOSÉ ANTONIO Cardenas 1.2.995.404 1330 [id number] Univers 08:13:41 09:28:25 Visit Santiago [facility] 350.1.13.10 i ty of CLINICS 4.2.7.2.686 Richi bach 478.4526696 [facility] 089 [place] 2020-06-04 2020-06-04 Outpatient R [facility] [id number] Univers 08:30:00 08:30:00 SANTIAGO barbosa of [facility] 2020-06-04 2020-06-04 Orders Doctor 1.2.840.8 [id number] Univers 00:00:00 00:00:00 Only Unassigned, 94976.1.1 ity of Wing 3.104.2.7 [place] .3.750917 Medica l .8 [place] 2020-05-19 2020-05-19 Telephone East, 1.2.840.0 [id number] [id number] Univers 00:00:00 00:00:00 Santiago 99036.1.1 ity of 3.104.2.7 [place] .3.736202 Medica l .8 [place] 2020-04-24 2020-04-24 Telephone East, 1.2.840.9 [id number] [id number] Univers 00:00:00 00:00:00 Santiago 91233.1.1 ity of 3.104.2.7 [place] .3.042621 Medica l .8 [place] 2020-04-14 2020-04-14 Outpatient R EAST, [facility] [id number] Univers 09:00:00 09:00:00 SANTIAGO ity of [facility] 2020-04-14 2020-04-14 Telephone East, 1.2.840.2 [id number] [id number] Univers 00:00:00 00:00:00 Santiago 15249.1.1 ity of 3.104.2.7 [place] .3.227176 Medica l .8 [place] 2020-03-31 2020-03-31 Outpatient R EAST, [facility] [id number] Univers 08:30:00 08:30:00 SANTIAGO ity of [facility] 2020-03-03 2020-03-03 Outpatient R SELF, [facility] [id number] Univers 08:00:00 08:00:00 GADIEL raheemcharlie o f [facility] 2020-03-03 2020-03-03 Outpatient R SELF, [facility] [id number] Univers 08:00:00 08:00:00 GADIEL barbosa o f [facility] 2020-03-03 2020-03-03 Travel 1.2.840.1 1.2.199.920 [id number] Univers 00:00:00 00:00:00 11236.1.1 350.1.13.10 ity of 3.104.2.7 4.[place]7.3.698 [place] .3.972197 084.8 Medica l .8 [place] 2020-02-06 2020-02-06 Telephone East, 1.2.840.5 [id number] [id number] Univers 00:00:00 00:00:00 Santiago 05945.1.1 ity of 3.104.2.7 [place] .3.093201 Medica l .8 [place] 2020-01-26 2020-01-26 Emergency Caridad, 1.2.840.1 [id number] [id number] Univers 10:03:00 13:05:00 Gloria 31169.1.1 ity of 3.104.2.7 [place] .3.662102 Medica l .8 [place] 2020-01-26 2020-01-26 Travel 1.2.840.1 1.2.902.354 0567 0120 Univers 00:00:00 00:00:00 70345.1.1 350.1.13.10 ity of 3.104.2.7 4[place].3.698 [place] .3.256731 084.8 Medica l .8 [place] 2020-01-25 2020-01-25 Outpatient R EAST, [facility] [id number] Univers 08:30:00 08:30:00 SANTIAGO ity of [facility] 2020-01-25 2020-01-25 Telemedici [place], 1.2.840.2 [id number] Univers 07:36:49 08:06:49 ne Visit Santiago 17526.1.1 ity of 3.104.2.7 [place] .3.033462 Medica l .8 [place] 2020-01-16 2020-01-16 Outpatient R EAST, [facility] [id number] Univers 08:00:00 08:00:00 SANTIAGO ity of [facility] 2020-01-16 2020-01-16 Telephone East, 1.2.840.9 [id number] Univers 00:00:00 00:00:00 Santiago 09446.1.1 ity of 3.104.2.7 [place] .3.347434 Medica l .8 [place] 2020-01-14 2020-01-14 Outpatient R SELF, [facility] [id number] Univers 08:00:00 08:00:00 GADIEL barbosa o f [facility] 2019-12-31 2019-12-31 Outpatient R SELF, [facility] [id number] Univers 08:45:00 08:45:00 GADIEL familia vogel clark [facility] 2019-10-17 2019-10-17 Outpatient R [facility] [id number] Univers 08:30:00 08:30:00 SANTIAGO barbosa [facility] 2019-10-12 2019-10-12 Outpatient R [facility] [id number] Univers 13:00:00 13:00:00 SANTIAGO itcharlie [facility] 2019-10-12 2019-10-12 Telemedici [place], 1.2.840.2 [id number] Univers 07:38:30 08:08:30 ne Visit Santiago 42399.1.1 ity of 3.104.2.7 [place] .3.862988 Medica l .8 [place] 2019-10-08 2019-10-08 Outpatient R [facility] [id number] Univers 10:15:00 10:15:00 GADIEL rodas [facility] 2019-10-03 2019-10-03 Case Assman, 1.2.840.0 [id number] Univers 00:00:00 00:00:00 Management Michael Corbin 21765.1.1 i ty of 3.104.2.7 [place] .3.185556 Medica l .8 [place] 2019-09-27 2019-09-27 Telephone East, 1.2.840.9 [id number] [id number] Univers 00:00:00 00:00:00 Santiago 06604.1.1 ity of 3.104.2.7 [place] .3.609199 Medica l .8 [place] 2019-09-04 2019-09-04 Refill East, 1.2.840.3 [id number] Univers 00:00:00 00:00:00 Santiago 90679.1.1 ity of 3.104.2.7 [place] .3.957742 Medica l .8 [place] 2019-07-24 2019-07-24 Outpatient R [facility] [id number] Univers 08:30:00 08:30:00 SANTIAGO barbosa [facility] 2019-07-17 2019-07-17 Outpatient R [facility] [id number] Univers 10:00:00 10:00:00 SANTIAGO ity of [facility] 2019-06-15 2019-06-15 Telephone East, 1.2.840.8 [id number] Univers 00:00:00 00:00:00 Santiago 24190.1.1 ity of 3.104.2.7 [place] .3.191754 Medica l .8 [place] 2019-06-13 2019-06-13 Telephone Team, [facility] 1.2.840.2 [id number] Univers 00:00:00 00:00:00 Health 67544.1.1 [place].2.[place] .3.830163 Medica l .8 [place] 2019-05-10 2019-05-10 Refill Ronald, 1.2.840.4 [id number] Univers 00:00:00 00:00:00 Santiago 96538.1.1 ity of 3.104.2.7 [place] .3.407046 Medica l .8 [place] 2019-05-09 2019-05-09 Refill Ronald, 1.2.840.3 [id number] Univers 00:00:00 00:00:00 Santiago 17689.1.1 ity of 3.104.2.7 [place] .3.312407 Medica l .8 [place] 2019-04-30 2019-04-30 Outpatient R RODO, [facility] [id number] Univers 10:15:00 10:33:05 GADIEL rodas [facility] 2019-04-18 2019-04-18 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 Operator [place] Cardenas 1.2.840.1 [id number] Univers 10:00:39 10:44:31 Visit [facility] 84615.1.1 ity of 3.104.2.7 [place] .3.461817 Medica l .8 [place] 2019-04-18 2019-04-18 Outpatient R RONALD [facility] [id number] Univers 10:00:00 10:44:31 SANTIAGO itcharlie of [facility] 2019-04-18 2019-04-18 Office Ronald, 1.2.840.3 [id number] Univers 08:27:44 09:53:27 Visit Santiago 23959.1.1 ity of 3.104.2.7 [place] .3.486027 Medica l .8 [place] 2019-04-18 2019-04-18 Orders Doctor 1.2.840.7 [id number] Univers 00:00:00 00:00:00 Only Unassigned, 27721.1.1 ity of Wing 3.104.2.7 [place] .3.387253 Medica l .8 [place] 2019-04-11 2019-04-11 Refill East, 1.2.840.1 [id number] Univers 00:00:00 00:00:00 Santiago 35972.1.1 ity of 3.104.2.7 [place] .3.821598 Medica l .8 [place] 2019-04-09 2019-04-09 Refill East, 1.2.840.6 [id number] Univers 00:00:00 00:00:00 Santiago 56886.1.1 ity of 3.104.2.7 [place] .3.305343 Medica l .8 [place] 2019-04-03 2019-04-03 Telephone Team, [facility] 1.2.840.1 [id number] Univers 00:00:00 00:00:00 Health 54874.1.1 [place]y [place].2.[place] .3.478597 Medica l .8 [place] 2019-03-27 2019-03-27 Telephone Self, 1.2.840.8 [id number] [id number] Univers 00:00:00 00:00:00 Gadiel 95023.1.1 ity of 3.104.2.7 [place] .3.254396 Medica l .8 [place] 2019-01-17 2019-01-17 Office East, 1.2.840.3 [id number] Univers 07:37:21 10:32:51 Visit Santiago 01873.1.1 ity of 3.104.2.7 [place] .3.335042 Medica l .8 [place] 2019-01-04 2019-01-12 Office Eveline Hansen 1.2.840.4 [id number] Univers 11:19:32 11:08:05 Visit Mariela 00295.1.1 ity of 3.104.2.7 [place] .3.660024 Medica l .8 [place] 2019-01-10 2019-01-10 Telephone Stanislav, 1.2.840.3 [id number] [id number] Univers 00:00:00 00:00:00 Eladio Inman 46819.1.1 ity of 3.104.2.7 [place] .3.679971 Medica l .8 [place] 2018-12-18 2018-12-18 Office Geraldine, 1.2.840.2 [id number] Univers 08:48:45 09:13:43 Visit Leyda 57260.1.1 it y of 3.104.2.7 [place] .3.386903 Medica l .8 [place] 2018-10-30 2018-10-30 Telephone East, 1.2.840.9 [id number] Univers 00:00:00 00:00:00 Santiago 70251.1.1 ity of 3.104.2.7 [place] .3.866301 Medica l .8 [place] 2018-10-23 2018-10-23 Orders Doctor 1.2.840.1 [id number] Univers 00:00:00 00:00:00 Only Unassigned, 25487.1.1 ity of Wing 3.104.2.7 [place] .3.215895 Medica l .8 [place] 2018-10-23 2018-10-23 Nurse Selvin, 1.2.840.0 [id number] Univers 00:00:00 00:00:00 Triage Stefanie 96457.1.1 ity of 3.104.2.7 [place] .3.474705 Medica l .8 [place] 2018-10-23 2018-10-23 Telephone Self, 1.2.840.1 [id number] Univers 00:00:00 00:00:00 Gadiel 18961.1.1 ity of 3.104.2.7 [place] .3.614759 Medica l .8 [place] 2018-10-20 2018-10-20 Telephone Self, 1.2.840.0 [id number] Univers 00:00:00 00:00:00 Gadiel 82650.1.1 ity of 3.104.2.7 [place] .3.994010 Medica l .8 [place] Results Test Description Test Time Test Comments Results Result Comments Source COMP. METABOLIC PANEL (69758) 2022-05-06 22:42:55 Test Item Value Reference Range Interpretation Comme nts NA (test code = 7128028698) 137 mmol/L 135-145 K (test code = 1577701465) 3.2 mmol/L 3.5-5.0 L CL (test code = 8079566917) 100 mmol/L 98-108 CO2 TOTAL (test code = 8868870342) 23 mmol/L 23-31 AGAP (test code = 8907489780) 2-16 BUN (test code = 5070560556) 41 mg/dL 7-23 H GLUCOSE (test code = 4562079458) 98 mg/dL 70-110 CREATININE (test code = 1.55 mg/dL 0.50-1.04 H 6920490665) TOTAL BILI (test code = 0.8 mg/dL 0.1-1.1 9342913424) CALCIUM (test code = 1893682913) 8.3 mg/dL 8.6-10.6 L T PROTEIN (test code = 7041938040) 6.9 g/dL 6.3-8.2 ALBUMIN (test code = 8689497568) 3.9 g/dL 3.5-5.0 ALK PHOS (test code = 4536197214) 89 U/L 34-122 ALTv (test code = 1742-6) 101 U/L 5-35 H AST(SGOT) (test code = 5589302501) 203 U/L 13-40 H eGFR (test code = 1867334623) mL/min/1.73m2 KYLE (test code = KYLE) Association [...] tests). Lab Interpretation (test code = Abnormal 74706-9) [facility] WITH [id number] 22:33:52 Test Item Value Reference Range Interpretation Comments WBC (test code = See_Comment L [Automated 2290-2) message] The sy stem which generated this result transmitted reference range : 4.30 - 11.10 10*3/?L. The reference range was not used to interpret this result as normal/abnormal . RBC (test code = See_Comment [Automated 329-8) message] The sy stem which generated this result transmitted reference range : 3.93 - 5.25 10*6/?L. The reference range was not used to interpret this result as normal/abnormal . HGB (test code = 12.5 g/dL 11.6-15.0 718-7) HCT (test code = 37.8 % 35.7-45.2 4544-3) MCV (test code = 92.9 fL 80.6-95.5 787-2) MCH (test code = 30.7 pg 25.9-32.8 785-6) MCHC (test code = 33.1 g/dL 31.6-35.1 786-4) RDW-SD (test code = 46.3 fL 39.0-49.9 39074-0) RDW-CV (test code = 13.5 % 12.0-15.5 788-0) PLT (test code = See_Comment L [Automated 777-3) message] The sy stem which generated this result transmitted reference range : 166 - 358 10*3/ ?L. The reference r abbey was not used to interpret this result as normal/abnormal . MPV (test code = 9.5 fL 9.5-12.9 48137-7) NRBC/100 WBC (test See_Comment [Automat ed code = 1988153669) message] The system which generated this result transmitted reference range : 0.0 - 10.0 /100 WBCs. The refer ence range was not u sed to interpret th is result as normal/abnormal . NRBC x10^3 (test code See_Comment [Auto mated = 4981577196) message] The s ystem which generated this result transmitted reference range : 10*3/?L. The reference range was not used to interpret this result as normal/abnormal . GRAN MAT (NEUT) % 58.3 % (test code = 770-8) IMM GRAN % (test code 0.80 % = 2882073253) LYMPH % (test code = 28.1 % 736-9) MONO % (test code = 12.0 % 5905-5) EOS % (test code = 0.5 % 713-8) BASO % (test code = 0.3 % 706-2) GRAN MAT x10^3(ANC) 2.29 10*3/uL 1.88-7.09 (test code = 0720526289) IMM GRAN x10^3 (test 0.03 10*3/uL 0.00-0.06 code = 0883538370) LYMPH x10^3 (test code 1.10 10*3/uL 1.32-3.29 L = 731-0) MONO x10^3 (test code 0.47 10*3/uL 0.33-0.92 = 742-7) EOS x10^3 (test code = 0.03-0.39 L 711-2) BASO x10^3 (test code 0.01-0.07 = 704-7) Lab Interpretation Abnormal (test code = 14655-6) [facility] (NA, K, CL, CO2, GLUCOSE, BUN, CREATININE, CA)2022-04-22 21:43:42 Test Item Value Reference Range Interpretation Comments NA (test code = 142 mmol/L 135-145 6459439176) K (test code = 3.5 mmol/L 3.5-5.0 1909288903) CL (test code = 106 mmol/L 98-108 9128424961) CO2 TOTAL (test code = 26 mmol/L 23-31 0827554958) AGAP (test code = 2-16 8548403053) BUN (test code = 29 mg/dL 7-23 H 7356870692) GLUCOSE (test code = 84 mg/dL 70-110 8928385543) CREATININE (test code = 1.16 mg/dL 0.50-1.04 H 8359524150) CALCIUM (test code = 8.2 mg/dL 8.6-10.6 L 6246657057) eGFR (test code = mL/min/1.73m2 7010877617) KYLE (test code = KYLE) Association of [...] tests). Lab Interpretation Abnormal (test code = 82035-8) [facility] WITH [id number] 21:33:01 Test Item Value Reference Range Interpretation [...] (test code = 50.7 fL 39.0-49.9 H 22457-4) RDW-CV (test code = 14.6 % 12.0-15.5 788-0) PLT (test code = See_Comment L [Automated 777-3) message] The sy stem which generated this result transmitted reference range : 166 - 358 10*3/ ?L. The reference r abbey was not used to interpret this result as normal/abnormal . MPV (test code = 8.8 fL 9.5-12.9 L 13663-5) NRBC/100 WBC (test See_Comment [Automat ed code = 5136031257) message] The system which generated this result transmitted reference range : 0.0 - 10.0 /100 WBCs. The refer ence range was not u sed to interpret th is result as normal/abnormal . NRBC x10^3 (test code See_Comment [Auto mated = 3223406675) message] The s ystem which generated this result transmitted reference range : 10*3/?L. The reference range was not used to interpret this result as normal/abnormal . GRAN MAT (NEUT) % 70.9 % (test code = 770-8) IMM GRAN % (test code 0.50 % = 6580998499) LYMPH % (test code = 17.4 % 736-9) MONO % (test code = 9.0 % 5905-5) EOS % (test code = 1.7 % 713-8) BASO % (test code = 0.5 % 706-2) GRAN MAT x10^3(ANC) 4.60 10*3/uL 1.88-7.09 (test code = 7767496179) IMM GRAN x10^3 (test 0.03 10*3/uL 0.00-0.06 code = 6396421560) LYMPH x10^3 (test code 1.13 10*3/uL 1.32-3.29 L = 731-0) MONO x10^3 (test code 0.58 10*3/uL 0.33-0.92 = 742-7) EOS x10^3 (test code = 0.11 10*3/uL 0.03-0.39 711-2) BASO x10^3 (test code 0.03 10*3/uL 0.01-0.07 = 704-7) Lab Interpretation Abnormal (test code = 06070-7) [facility] [id number] 06:01:07 Test Item Value Reference Range Interpretation Comments Blood Culture-Aerobic No organisms No growth Previo us (test code = 37334-9) isolated prelim inary verified result was Culture [...] Culture-Anaerobic isolated preliminar y (test code = 95346-5) verifi ed result was Culture In Progress [...] CDT Lab Interpretation Normal (test code = 91724-7) [facility] CULTURE [id number] 06:01:07 Test Item Value Reference Range Interpretation Comments Blood Culture-Aerobic No organisms No growth Previo us (test code = 48596-3) isolated prelim inary verified result was Culture [...] Culture-Anaerobic isolated preliminar y (test code = 03446-6) verifi ed result was Culture In Progress [...] CDT Lab Interpretation Normal (test code = 84562-9) [facility] CULTURE [id number] 06:01:07 Test Item Value Reference Range Interpretation Comments Blood Culture-Aerobic No organisms No growth Previo us (test code = 00229-5) isolated prelim inary verified result was Culture [...] Culture-Anaerobic isolated preliminar y (test code = 29494-2) verifi ed result was Culture In Progress [...] CDT Lab Interpretation Normal (test code = 55559-9) [facility] [id number] 10:49:10 Test Item Value Reference Range Interpretation Comments NT-proBNP (test code 2660 pg/mL See_Comment H [Autom ated = 8660674862) message] The system which generated this result transmitted reference range : <=125. The reference range was not used to interpret this result as normal/abnormal . KYLE (test code = KYLE) Biotin has been reported to cause a negative bias, interpret results relative to patient's use of biotin. Lab Interpretation Abnormal (test code = 82485-9) [facility] [id number] 10:49:10 Test Item Value Reference Range Interpretation Comments NT-proBNP (test code 2660 pg/mL See_Comment H [Autom ated = 3227936519) message] The system which generated this result transmitted reference range : <=125. The reference range was not used to interpret this result as normal/abnormal . KYLE (test code = KYLE) Biotin has been reported to cause a negative bias, interpret results relative to patient's use of biotin. Lab Interpretation Abnormal (test code = 99807-0) [facility] METABOLIC PANEL (NA, K, CL, CO2, GLUCOSE, BUN, CREATININE, CA)2022-02-15 10:44:07 Test Item Value Reference Range Interpretation Comments NA (test code = 134 mmol/L 135-145 L 2039911706) K (test code = 3.2 mmol/L 3.5-5 L 4906681176) CL (test code = 98 mmol/L 98-108 7457500413) CO2 TOTAL (test code = 27 mmol/L 23-31 9633790650) AGAP (test code = 2-16 3916816157) BUN (test code = 19 mg/dL 7-23 1977625345) GLUCOSE (test code = 102 mg/dL 70-110 9403304084) CREATININE (test code = 0.95 mg/dL 0.5-1.04 4377050173) CALCIUM (test code = 8.5 mg/dL 8.6-10.6 L 2757327123) eGFR (test code = mL/min/1.73m2 9944117028) KYLE (test code = KYLE) Association of [...] tests). Lab Interpretation Abnormal (test code = 56252-6) [facility] Test Item Value Reference Range Interpretation Comments MAGNESIUM (test code = 3479611233) 1.8 mg/dL 1.7-2.4 Lab Interpretation (test code = Normal 20869-0) [facility] Test Item Value Reference Range Interpretation Comments MAGNESIUM (test code = 0976998930) 1.8 mg/dL 1.7-2.4 Lab Interpretation (test code = Normal 59880-0) [facility] METABOLIC PANEL (NA, K, CL, CO2, GLUCOSE, BUN, CREATININE, CA)2022-02-15 10:44:07 Test Item Value Reference Range Interpretation Comments NA (test code = 134 mmol/L 135-145 L 8223008656) K (test code = 3.2 mmol/L 3.5-5.0 L 1735907751) CL (test code = 98 mmol/L 98-108 7669975728) CO2 TOTAL (test code = 27 mmol/L 23-31 5391630832) AGAP (test code = 2-16 7856415651) BUN (test code = 19 mg/dL 7-23 8905035578) GLUCOSE (test code = 102 mg/dL 70-110 4916075112) CREATININE (test code = 0.95 mg/dL 0.50-1.04 6830716598) CALCIUM (test code = 8.5 mg/dL 8.6-10.6 L 4329167250) eGFR (test code = mL/min/1.73m2 6366476152) KYLE (test code = KYLE) Association of [...] tests). Lab Interpretation Abnormal (test code = 46003-1) [facility] WITH [id number] 10:12:06 Test Item Value Reference Range Interpretation [...] RDW-SD (test code = 47.8 fL 39-49.9 30623-4) RDW-CV (test code = 15.2 % 12-15.5 788-0) PLT (test code = See_Comment L [Automated 777-3) message] The sy stem which generated this result transmitted reference range : 166 - 358 10*3/ ?L. The reference r abbey was not used to interpret this result as normal/abnormal . MPV (test code = 8.9 fL 9.5-12.9 L 81707-2) NRBC/100 WBC (test See_Comment [Automat ed code = 3096514583) message] The system which generated this result transmitted reference range : 0.0 - 10.0 /100 WBCs. The refer ence range was not u sed to interpret th is result as normal/abnormal . NRBC x10^3 (test code See_Comment [Auto mated = 0611412762) message] The s ystem which generated this result transmitted reference range : 10*3/?L. The reference range was not used to interpret this result as normal/abnormal . GRAN MAT (NEUT) % 65.9 % (test code = 770-8) IMM GRAN % (test code 0.30 % = 3471407037) LYMPH % (test code = 21.0 % 736-9) MONO % (test code = 10.1 % 5905-5) EOS % (test code = 2.4 % 713-8) BASO % (test code = 0.3 % 706-2) GRAN MAT x10^3(ANC) 2.49 10*3/uL 1.88-7.09 (test code = 1690584320) IMM GRAN x10^3 (test 0-0.06 code = 4571597616) LYMPH x10^3 (test code 0.79 10*3/uL 1.32-3.29 L = 731-0) MONO x10^3 (test code 0.38 10*3/uL 0.33-0.92 = 742-7) EOS x10^3 (test code = 0.09 10*3/uL 0.03-0.39 711-2) BASO x10^3 (test code 0.01-0.07 = 704-7) Lab Interpretation Abnormal (test code = 71875-3) [facility] WITH [id number] 10:12:06 Test Item Value Reference Range Interpretation [...] RDW-SD (test code = 47.8 fL 39.0-49.9 83294-9) RDW-CV (test code = 15.2 % 12.0-15.5 788-0) PLT (test code = See_Comment L [Automated 777-3) message] The sy stem which generated this result transmitted reference range : 166 - 358 10*3/ ?L. The reference r abbey was not used to interpret this result as normal/abnormal . MPV (test code = 8.9 fL 9.5-12.9 L 33826-8) NRBC/100 WBC (test See_Comment [Automat ed code = 9921137699) message] The system which generated this result transmitted reference range : 0.0 - 10.0 /100 WBCs. The refer ence range was not u sed to interpret th is result as normal/abnormal . NRBC x10^3 (test code See_Comment [Auto mated = 5636256605) message] The s ystem which generated this result transmitted reference range : 10*3/?L. The reference range was not used to interpret this result as normal/abnormal . GRAN MAT (NEUT) % 65.9 % (test code = 770-8) IMM GRAN % (test code 0.30 % = 8713919194) LYMPH % (test code = 21.0 % 736-9) MONO % (test code = 10.1 % 5905-5) EOS % (test code = 2.4 % 713-8) BASO % (test code = 0.3 % 706-2) GRAN MAT x10^3(ANC) 2.49 10*3/uL 1.88-7.09 (test code = 0698049570) IMM GRAN x10^3 (test 0.00-0.06 code = 4404896819) LYMPH x10^3 (test code 0.79 10*3/uL 1.32-3.29 L = 731-0) MONO x10^3 (test code 0.38 10*3/uL 0.33-0.92 = 742-7) EOS x10^3 (test code = 0.09 10*3/uL 0.03-0.39 711-2) BASO x10^3 (test code 0.01-0.07 = 704-7) Lab Interpretation Abnormal (test code = 27689-4) [facility] WITH [id number] 11:18:28 Test Item Value Reference Range Interpretation [...] RDW-SD (test code = 49.5 fL 39-49.9 16364-5) RDW-CV (test code = 15.5 % 12-15.5 788-0) PLT (test code = See_Comment L [Automated 777-3) message] The sy stem which generated this result transmitted reference range : 166 - 358 10*3/ ?L. The reference r abbey was not used to interpret this result as normal/abnormal . MPV (test code = 11.4 fL 9.5-12.9 07490-1) IPF % (test code = 8.7 % 1.3-7.7 H Platelet count 3369934233) measured by fluorescence method. NRBC/100 WBC (test See_Comment [Automat ed code = 0734305722) message] The system which generated this result transmitted reference range : 0.0 - 10.0 /100 WBCs. The refer ence range was not u sed to interpret th is result as normal/abnormal . NRBC x10^3 (test code See_Comment [Auto mated = 0309637194) message] The s ystem which generated this result transmitted reference range : 10*3/?L. The reference range was not used to interpret this result as normal/abnormal . GRAN MAT (NEUT) % 62.0 % (test code = 770-8) IMM GRAN % (test code 0.80 % = 9445923342) LYMPH % (test code = 22.2 % 736-9) MONO % (test code = 9.6 % 5905-5) EOS % (test code = 5.1 % 713-8) BASO % (test code = 0.3 % 706-2) GRAN MAT x10^3(ANC) 2.21 10*3/uL 1.88-7.09 (test code = 5580763638) IMM GRAN x10^3 (test 0.03 10*3/uL 0-0.06 code = 0234330688) LYMPH x10^3 (test code 0.79 10*3/uL 1.32-3.29 L = 731-0) MONO x10^3 (test code 0.34 10*3/uL 0.33-0.92 = 742-7) EOS x10^3 (test code = 0.18 10*3/uL 0.03-0.39 711-2) BASO x10^3 (test code 0.01-0.07 = 704-7) POLYCHROMASIA (test 2+ See_Comment [Automa arpit code = 13134-8) message] The system which generated this result [...] . Lab Interpretation Abnormal (test code = 56781-0) [facility] METABOLIC PANEL (NA, K, CL, CO2, GLUCOSE, BUN, CREATININE, CA)2022-02-13 10:39:07 Test Item Value Reference Range Interpretation Comments NA (test code = 136 mmol/L 135-145 9691899273) K (test code = 4.1 mmol/L 3.5-5 8209684415) CL (test code = 102 mmol/L 98-108 0192014724) CO2 TOTAL (test code = 27 mmol/L 23-31 8120071544) AGAP (test code = 2-16 9809409811) BUN (test code = 22 mg/dL 7-23 7483960738) GLUCOSE (test code = 94 mg/dL 70-110 5998338636) CREATININE (test code = 0.94 mg/dL 0.5-1.04 6011277598) CALCIUM (test code = 8.1 mg/dL 8.6-10.6 L 4224733811) eGFR (test code = mL/min/1.73m2 6565364491) KYLE (test code = KYLE) Association of [...] tests). Lab Interpretation Abnormal (test code = 55828-4) [facility]2022-[facility]12 01:50:10 Test Item Value Reference Range Interpretation Comments Height (test code = in 9654655251) Weight (test code = lbs 3480454082) Systolic BP (test code mmHg = 6048675389) Diastolic BP (test code mmHg = 9538350146) Heart Rate (test code = bpm 2667875261) BSA (test code = 1.85 m2 9717017152) IVS (test code = 1.22 cm 8511656423) Interventricular Septum 1.22 cm Diastolic Thickness by 2D (test code = 1560618) LVIDD (test code = 5.00 cm 3215689582) Left Ventricular End 117.9 mL Diastolic Volume by Teichholz Method (test code = 8386342) LVPWD (test code = 1.22 cm 3094026920) PW (test code = 1.22 cm 0.6-1.2 0422266544) EF(Teich) (test code = 74.60 % 7642208127) LVIDS (test code = 2.80 cm 6029980534) Left Ventricular End 29.9 mL Systolic Volume by Teichholz Method (test code = 6339745) FS (test code = 44 % 2985169290) EF - 2D (test code = 74.60 % 01050312) LVOT diameter (test 2.16 cm code = 4731479509) LVOT area (test code = 3.70 cm2 7241297111) Ao root diam (test code 3.40 cm = 7352222682) Aortic root (test code 3.4 cm = 4299815887) Ao root annulus (test 3.4 cm code = 6808288977) LA size (test code = 3.4 cm 4905569956) TR Peak Spencer (test code 330.0 cm/s = 2129220610) Triscuspid Valve mmHg Regurgitation Peak Gradient (test code = 7673614579) PV REGURGITATION PEAK mmHg GRADIENT (test code = 5415838829) PI dec slope (test code 137.20 cm/s2 = 1554255124) LAV(MOD-sp4) (test code 102.90 mL = 5469754447) MV Peak E Spencer (test 84.1 cm/s code = 8423507823) MV Peak A Spencer (test 40.1 cm/s code = 9422538935) E/A ratio (test code = ratio 1377025827) MV valve area p 1/2 3.70 cm2 method (test code = 7012779906) MV dec slope (test code 413.00 cm/s2 = 3183527871) MV P1/2t max spencer (test 83.70 cm/s code = 6344076846) MV Prop V (test code = 41.80 cm/s 4125007030) Tapse (test code = 1.83 cm 5913239332) LVOT stroke volume 96.90 cm3 (test code = 5429429260) LVOT peak spencer (test 125.5 cm/s code = 9242449404) LVOT mn grad (test code mmHg = 9502741535) AV LVOT peak gradient mmHg (test code = 6159556803) LVOT peak VTI (test 26.4 cm code = 7779415801) LV V1 mean (test code = 78.10 cm/s 0489934835) Aortic valve mean 103.7 cm/s velocity (test code = 2020172234) Ao peak spencer (test code 165.6 cm/s = 4858538145) Ao VTI (test code = 37.2 cm 4724216505) AV area by cont VTI 2.6 cm2 (test code = 5157754918) AV area peak spencer (test 2.8 cm2 code = 1299973368) Ao max PG (test code = 11.00 mm[Hg] 3871288858) AV peak gradient (test mmHg code = 1927931696) AV valve area (test 2.60 cm2 code = 7923649810) AV mean gradient (test mmHg code = 0146084150) LA Volume Index (BP) 55.2 mL/m2 (test code = 9719983714) LA volume (BP) (test 102.1 mL code = 5269037152) LAV(MOD-sp2) (test code 86.10 mL = 5274529283) A2C EF (test code = 61.20 % 6727546277) EF(sp2-el) (test code = 61.60 % 1832943840) SV(MOD-sp2) (test code 47.10 mL = 2694999707) LV Diastolic Volume 70.7 mL (BP) (test code = 3875196624) A4C EF (test code = 53.00 % 7535321991) EF(MOD-bp) (test code = 56.70 % 9632879678) EF(sp4-el) (test code = 53.90 % 6026354972) LV Systolic Volume (BP) 30.6 mL (test code = 2426837234) SV(MOD-bp) (test code = 40.10 mL 7893568055) SV(MOD-sp4) (test code 32.40 mL = 2620477833) SV(sp4-el) (test code = 33.10 mL 5789943933) EF (test code = 2802809456) Left Ventricular Stroke 40.1 mL Volume by 2-D Biplane-MOD (test code = 7338154) LV Diastolic Volume 38.2 mL/m2 Index (BP) (test code = 8117600850) LV Systolic Volume 16.5 mL/m2 Index (BP) (test code = 2447092089) Radiology Study observation (narrative) (test code = 51022-4) KYLE (test code = KYLE) ?Left?Ventricle: Left [...] 1.00The left ventricular wall motion is normal. [facility] CenterESTHER [id number] 05:45:01 Test Item Value Reference Interpretation Comments Range TROPONIN I (test See_Comment [Automated code = 9961625560) message] The system which generated this result [...] biotin. Lab Interpretation Normal (test code = 00542-4) [facility] Center[facility]MINAL LQQ-YVL6154-10-22 05:41:40 Test Item Value Reference Range Interpretation Comments NT-proBNP (test code 4250 pg/mL See_Comment H [Autom ated = 8886338700) message] The system which generated this result transmitted reference range : <=125. The reference range was not used to interpret this result as normal/abnormal . KYLE (test code = KYLE) Biotin has been reported to cause a negative bias, interpret results relative to patient's use of biotin. Lab Interpretation Abnormal (test code = 81469-3) [facility] CenterACT[facility] THRMPLAS [id number] 05:35:21 Test Item Value Reference Range Interpretation [...] seconds. Lab Interpretation Normal (test code = 63837-0) [facility] CenterACT[facility] THRMPLAS [id number] 05:35:21 Test Item Value Reference Range Interpretation [...] seconds. Lab Interpretation Normal (test code = 66905-3) [facility] CenterPROTHROMBIN TIME / [id number] 05:33:21 Test Item Value Reference Range Interpretation Comments PROTIME PATIENT (test See_Comment [Auto mated message] code = 5964-2) The system [employer] generated this result transmitted ref erence range: 12.0 - 1 4.7 Seconds. The re ference range was not u sed to interpret this result as normal/abnor mal. INR (test code = 6301-6) Nor mal INR <1.1; Warfarin Therap eutic range 2.0 to 3. 0 or 2.5 to 3.5, dep ending upon the indica tions. Lab Interpretation (test Normal code = 37196-9) [facility]. METABOLIC PANEL (41057)2022-02-11 05:33:21 Test Item Value Reference Range Interpretation Comments NA (test code = 137 mmol/L 135-145 6482752074) K (test code = 4.3 mmol/L 3.5-5 8096513342) CL (test code = 103 mmol/L 98-108 6726391031) CO2 TOTAL (test code = 25 mmol/L 23-31 7963390013) AGAP (test code = 2-16 8286467371) BUN (test code = 19 mg/dL 7-23 3780508996) GLUCOSE (test code = 120 mg/dL 70-110 H 6137239864) CREATININE (test code = 1.15 mg/dL 0.5-1.04 H 4104950809) TOTAL BILI (test code = 0.9 mg/dL 0.1-1.6 2504844160) CALCIUM (test code = 8.9 mg/dL 8.6-10.6 6823147446) T PROTEIN (test code = 6.6 g/dL 6.3-8.2 3155800589) ALBUMIN (test code = 4.0 g/dL 3.5-5 3569421175) ALK PHOS (test code = 73 U/L 34-122 1112124579) ALTv (test code = 18 U/L 5-35 1742-6) AST(SGOT) (test code = 31 U/L 13-40 2317847468) eGFR (test code = mL/min/1.73m2 8522511233) KYLE (test code = KYLE) Association of [...] tests). Lab Interpretation Abnormal (test code = 62557-7) [facility]. METABOLIC PANEL (02719)2022-02-11 05:33:21 Test Item Value Reference Range Interpretation Comments NA (test code = 137 mmol/L 135-145 9043479695) K (test code = 4.3 mmol/L 3.5-5.0 1049881944) CL (test code = 103 mmol/L 98-108 9592141962) CO2 TOTAL (test code = 25 mmol/L 23-31 9398138284) AGAP (test code = 2-16 6266756596) BUN (test code = 19 mg/dL 7-23 1354464597) GLUCOSE (test code = 120 mg/dL 70-110 H 4911475030) CREATININE (test code = 1.15 mg/dL 0.50-1.04 H 1079349192) TOTAL BILI (test code = 0.9 mg/dL 0.1-1.8 0876083236) CALCIUM (test code = 8.9 mg/dL 8.6-10.6 4952289440) T PROTEIN (test code = 6.6 g/dL 6.3-8.2 5285358702) ALBUMIN (test code = 4.0 g/dL 3.5-5.0 2741618955) ALK PHOS (test code = 73 U/L 34-122 1533354624) ALTv (test code = 18 U/L 5-35 1742-6) AST(SGOT) (test code = 31 U/L 13-40 8901967929) eGFR (test code = mL/min/1.73m2 2074683301) KYLE (test code = KYLE) Association of [...] tests). Lab Interpretation Abnormal (test code = 48658-6) [facility] CenterPROT[facility] TIME / [id number] 05:33:21 Test Item Value Reference Range Interpretation [...] tions. Lab Interpretation (test Normal code = 89830-8) [facility] WITH [id number] 05:14:37 Test Item Value Reference Range Interpretation Comments WBC (test code = See_Comment [Automated 8290-2) message] The sy stem which generated this [...] RDW-SD (test code = 47.9 fL 39-49.9 36539-5) RDW-CV (test code = 14.9 % 12-15.5 788-0) PLT (test code = See_Comment L [Automated 777-3) message] The sy stem which generated this result transmitted reference range : 166 - 358 10*3/ ?L. The reference r abbey was not used to interpret this result as normal/abnormal . MPV (test code = 9.1 fL 9.5-12.9 L 19542-0) NRBC/100 WBC (test See_Comment [Automat ed code = 5194898495) message] The system which generated this result transmitted reference range : 0.0 - 10.0 /100 WBCs. The refer ence range was not u sed to interpret th is result as normal/abnormal . NRBC x10^3 (test code See_Comment [Auto mated = 9696417030) message] The s ystem which generated this result transmitted reference range : 10*3/?L. The reference range was not used to interpret this result as normal/abnormal . GRAN MAT (NEUT) % 78.5 % (test code = 770-8) IMM GRAN % (test code 0.20 % = 0893643340) LYMPH % (test code = 11.6 % 736-9) MONO % (test code = 8.4 % 5905-5) EOS % (test code = 1.1 % 713-8) BASO % (test code = 0.2 % 706-2) GRAN MAT x10^3(ANC) 3.45 10*3/uL 1.88-7.09 (test code = 9469072013) IMM GRAN x10^3 (test 0-0.06 code = 9663895309) LYMPH x10^3 (test code 0.51 10*3/uL 1.32-3.29 L = 731-0) MONO x10^3 (test code 0.37 10*3/uL 0.33-0.92 = 742-7) EOS x10^3 (test code = 0.05 10*3/uL 0.03-0.39 711-2) BASO x10^3 (test code 0.01-0.07 = 704-7) Lab Interpretation Abnormal (test code = 33957-4) [facility] Coronavirus 2018 Fkhpybk8844-64-40 18:08:00 Test Item Value Reference Range Interpretation [...] det ection of nucleic acids f rom innBWFL-ZkI-5 v irus and diagnosis of SA RS-CoV-2 virusinfection. It is an Emergency Use Authorization ( EUA) testauthorized by the U.S. FDA. BASIC METABOLIC [id number] 09:37:00 Test Item Value Reference Range Interpretation [...] = 9.0 mg/dL 8.0-10.5 N CA) PROTHROMBIN [id number] 09:32:00 Test Item Value Reference Range Interpretation [...] (to prevent recurrent infar ct). 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 [place] [place] : 1955 Age/S: 66/F [address] [place] [address] Unit #: [id number] Loc: [place] [address] Phys: Bahman Chopra [facility] Acct: [id number] Dis Date: Status: ADM IN PHONE #: [phone] Exam Date: 06/17/2021 1320 FAX #: [phone] Reason: WATCHMAN EXAMS: CPT CODE: [id number] XR CHEST 1 V 24048 PROCEDURE INFORMATION: Exam: XR Chest Exam date [...] Chopra Technologist: RT Taylor(R) Trnscrd Date/Time/By: 06/17/2021 (913) : By: Susanna Orig Print D/T: S: 06/17/2021 (0905) PAGE 1 Signed ReportCOVID 19 Asymptomatic IH [...] high or waivedcomplexit y tests. BASIC METABOLIC [id number] 11:37:00 Test Item Value Reference Range Interpretation [...] code = 9.0 mg/dL 8.0-10.5 N CA) [id number] 11:37:00 Test Item Value Reference Range Interpretation Comments PREALBUMIN (test code = PREALB) 24.3 mg/dL 16.0-40.0 N PROTHROMBIN [id number] 11:03:00 Test Item Value Reference Range Interpretation [...] (to prevent recurrent infar ct). CBC W/AUTO [id number] 10:59:00 Test Item Value Reference Range Interpretation [...] 0.0-0.1 N NRBC#) - XR CHEST 2 [id number] 00:00:00 [facility] : 1955 Sex: F FAX: Carmenza Kelly [phone] [place]: St: PRE FAX: Mike Scales MD [phone] Name: LIO WATTS [facility] [place] [place] : 1955 Age/S: 66/F [address] [place] [address] Unit #: [id number] Loc: [place], [place] [address]Lqiv: Mike Lund MD Acct: [id number] Dis Date: Status: PRE [facility] PHONE #: [phone] Exam Date: 06/16/2021 1120 FAX #: [phone] Reason: PREOP EXAMS: CPT CODE: [id number] XR CHEST 2 V 68179 PROCEDURE INFORMATION: Exam: XR Chest Exam date [...] Technologist: Danielle Nix RT(R) Trnscrd Date/Time/By: 06/16/2021 (4759) : By: [email or web address] Orig Print D/T: S: 06/16/2021 (5346) PAGE 1 Signed ReportGastrointestinal nwxfm2611-65-49 04:35:05 Test Item Value Reference Interpretation Comments [...] Rotavirus PCR (test Not Detected code = 1883278) Salmonella PCR (test Not Detected code = [...] Detected (test code = 7124) [facility] lbhkgmj5315-15-69 19:30:47 Test Item Value Reference Range Interpretation Comments Case number (test [id number] code = 6427836) Surgical pathology See link below for PDF report (test code = Lab Report 2255) Result status (test This is Supplemental code = 2254240) Report for [id number] [facility]2021-04-09 16:31:00 Test Item Value Reference Range Interpretation Comments POC Activated Clotting Time (test code 153 s = POC Activated Clotting Time) [facility] HospitalSlxcsrhJPRDAIWFVX2023-88-18 16:31:00 Test Item Value Reference Range Interpretation Comments POC Activated Clotting Time (test code 153 s = POC Activated Clotting Time) [facility] HospitalCdhfenoYGCWSQCHEB5483-02-81 16:31:00 Test Item Value Reference Range Interpretation Comments POC Activated Clotting Time (test code 153 s = POC Activated Clotting Time) [facility] HospitalSypijpwLXTBFEWLZG2144-66-96 16:31:00 Test Item Value Reference Range Interpretation Comments POC Activated Clotting Time (test code 153 s = POC Activated Clotting Time) [facility] HospitalMgoxznzYWSPORVCPU6832-27-01 16:31:00 Test Item Value Reference Range Interpretation Comments POC Activated Clotting Time (test code 153 s = POC Activated Clotting Time) [facility] HospitalLzsucdlSNERRUADEK8420-55-50 16:31:00 Test Item Value Reference Range Interpretation Comments POC Activated Clotting Time (test code 153 s = POC Activated Clotting Time) [facility] HospitalNpvxrliLQPVAUHJJY7285-42-35 16:31:00 Test Item Value Reference Range Interpretation Comments POC Activated Clotting Time (test code 153 s = POC Activated Clotting Time) [facility] HospitalBpebrswSAWBUNEMAH0763-83-72 14:37:00 Test Item Value Reference Range Interpretation Comments POC Activated Clotting Time (test code 454 s = POC Activated Clotting Time) [facility] HospitalLexxhfnLAPPGDFYCM3916-46-77 14:37:00 Test Item Value Reference Range Interpretation Comments POC Activated Clotting Time (test code 454 s = POC Activated Clotting Time) [facility] HospitalQcssobcDBRJTIPSIW6837-38-03 14:37:00 Test Item Value Reference Range Interpretation Comments POC Activated Clotting Time (test code 454 s = POC Activated Clotting Time) [facility] HospitalYktrsflPQLHYTXJGA1294-69-67 14:37:00 Test Item Value Reference Range Interpretation Comments POC Activated Clotting Time (test code 454 s = POC Activated Clotting Time) [facility] HospitalOcmgirwQSUQIPVBJX6360-70-75 14:37:00 Test Item Value Reference Range Interpretation Comments POC Activated Clotting Time (test code 454 s = POC Activated Clotting Time) [facility] HospitalWgqfkwpTKDYUYBGCQ0842-61-80 14:37:00 Test Item Value Reference Range Interpretation Comments POC Activated Clotting Time (test code 454 s = POC Activated Clotting Time) [facility] HospitalShvrkrxYLGJSBUKAH3225-45-65 14:37:00 Test Item Value Reference Range Interpretation Comments POC Activated Clotting Time (test code 454 s = POC Activated Clotting Time) [facility] HospitalEfacixmRARTBDGDWD4547-02-35 14:13:00 Test Item Value Reference Range Interpretation Comments POC Activated Clotting Time (test code 354 s = POC Activated Clotting Time) [facility] HospitalJimyfmyRUJLJHPGJI9650-32-90 14:13:00 Test Item Value Reference Range Interpretation Comments POC Activated Clotting Time (test code 354 s = POC Activated Clotting Time) [facility] HospitalKwhhlxpFJBXMPJBKA1124-43-60 14:13:00 Test Item Value Reference Range Interpretation Comments POC Activated Clotting Time (test code 354 s = POC Activated Clotting Time) [facility] HospitalUukjhhzBBHAKLNPTB8635-33-37 14:13:00 Test Item Value Reference Range Interpretation Comments POC Activated Clotting Time (test code 354 s = POC Activated Clotting Time) [facility] HospitalPgbhhcmUEMGRCBVFB8092-60-81 14:13:00 Test Item Value Reference Range Interpretation Comments POC Activated Clotting Time (test code 354 s = POC Activated Clotting Time) [facility] HospitalIpcidguALWDAWBIQF4479-53-21 14:13:00 Test Item Value Reference Range Interpretation Comments POC Activated Clotting Time (test code 354 s = POC Activated Clotting Time) [facility] HospitalLmlpzykMSUDKOJTRA7211-17-59 14:13:00 Test Item Value Reference Range Interpretation Comments POC Activated Clotting Time (test code 354 s = POC Activated Clotting Time) [facility] YAHPBDZ7830-92-86 10:37:00Negative (08/29/20 5:37 AM) [facility]Fan[facility] PIPZB8344-42-92 10:37:48186Elbanxmk YorkshireCHEM PANEL 2020-08-29 10:37:0028[facility] YorkshireCHEM UZGXV6715-12-40 10:37:001.01[facility] HermannCHEM FEFDG9899-86-11 10:37:48294Vixgvuyb HermannCHEM TWYWR1619-16-83 10:37:003.8[facility]annCHEM NRZRD2968-19-17 10:37:64226Mnmzlvzd HermannCHEM YHRHZ6308-31-62 10:37:0028[facility]annCHEM KODDX4370-66-67 10:37:009.8 [facility]annCHE[facility] PVBHP8312-29-91 10:37:0011.8[facility] HermannCHEM PANEL 2020-08-29 10:37:0059[facility] HermannCHEM PQSNR2859-60-97 10:37:002.9[facility] IwulbcvFGBXECMMZJ1710-88-75 10:37:006.8[facility] HvsmnyrBEUAHDSGBY9651-52-52 10:37:004.47[facility] BqusdzcDVYQKGRXWG0072-52-66 10:37:0010.6[facility] [place] EYLRKKLAWY4885-04-26 10:37:0034.0[facility] FiratzlAYVUJHJQTH3748-58-42 10:37:00 76.1[facility]orial XwtirbaMZAEYDPRWJ2233-86-22 10:37:00 Test Item Value Reference Range Interpretation Comments MCH (test code = MCH) 23.8 pg 27.0-31.0 [facility] PrhupqlTVHRFMGUDJ3779-60-87 10:37:0031.3[facility]annHEMATOLOGY 2020-08-29 10:37:0018.2[facility] TvaydcgMAUKFDMZNB9736-40-34 10:37:74048Dtrikywu SlsagscHDUSRYVBPG7565-63-06 10:37:007.5[facility] DiiepvhRDHTELSMPS0182-03-64 10:37:00 Test Item Value Reference Range Interpretation Comments PT (test code = PT) 12.8 s 12.0-14.7 [facility] EzerlrnZAHZOZLQXE9809-56-75 10:37:00 Test Item Value Reference Range Interpretation Comments INR (test code = INR) 0.97 1 0.85-1.17 [facility] VkbqhnmVXLTDQHQIA3800-94-93 10:37:00 Test Item Value Reference Range Interpretation Comments PTT (test code = PTT) 25.0 s 22.9-35.8 [facility] GqwsaxrRKUEKTTBOR0811-38-09 10:37:0070.5[facility] 2020-08-29 10:37:0018.8[facility] WjksymlMBMUBNFDXJ5814-61-79 10:37:009.5[facility] AmxqpdjDTZBCJOYXQ6736-56-40 10:37:000.9[facility] LvcfvcpRPIOVFHOJJ0209-06-17 10:37:000.3[facility] CjwfrpgOWYNOBWOOC5418-21-51 10:37:004.8[facility] LHWELDWWBF4531-91-54 10:37:001.3[facility] FobyrsqPSYKCMBJRZ9731-30-25 10:37:000.6 [facility] SkorufyISCXIALPQP1883-13-02 10:37:000.1[facility] 2020-08-29 10:37:001+ *ABN*(08/29/20 5:37 AM)[facility] ZakgpibZZTXMDYGKX9033-83-19 10:37:00Not Detected (08/29/20 5:37 AM)[facility] 2020-08-29 10:37:00Negative (08/29/20 5:37 AM)[facility] HermannCHEM WYUAT4010-91-02 10:37:83119Clltevfp HermannCHEM BNBEI7610-00-85 10:37:0028[facility]annCHE[facility] YUMFL7276-22-03 10:37:001.01[facility]annCHEM AUUOK1409-42-07 10:37:38874 [facility] YXIVX0942-85-14 10:37:003.8[facility]annCHEM PANEL 2020-08-29 10:37:72821Azmkdoaj HermannCHEM MOPKB5791-07-87 10:37:0028[facility]annCHEM KRJBU9595-16-97 10:37:009.8[facility]annCHEM WDXMT3805-00-21 10:37:0011.8[facility]annCHEM XERFQ6771-00-11 10:37:0059[facility]annCHEM EZSFD2361-29-31 10:37:002.9[facility] XzanxzoUOCKGPREGT9612-89-69 10:37:006.8 [facility] IsydtulGGCBDHITBU7247-61-59 10:37:004.47[facility]annHEMATOLOGY 2020-08-29 10:37:0010.6[facility] FmsjagaZKTVINLNGW6241-95-30 10:37:0034.0[facility] UbwgtgwAIAFHIVPHD7190-04-51 10:37:0076.1[facility] ZpqquuqJJJAELCYXR6741-76-35 10:37:00 Test Item Value Reference Range Interpretation Comments MCH (test code = MCH) 23.8 pg 27.0-31.0 [facility] AkcanyoODZOAYOBMC1099-90-12 10:37:0031.3[facility]annHEMATOLOGY 2020-08-29 10:37:0018.2[facility] YbnmiioSSNACLNBOL3755-83-81 10:37:98785Kijnthiz AuvmubxWSQMJTJYID9923-53-86 10:37:007.5[facility] JltgoeqYFWPJAJZZB5243-04-08 10:37:00 Test Item Value Reference Range Interpretation Comments PT (test code = PT) 12.8 s 12.0-14.7 [facility] XeomzdbCXIMMQORDM4934-24-15 10:37:00 Test Item Value Reference Range Interpretation Comments INR (test code = INR) 0.97 1 0.85-1.17 [facility] UtkhtejNBXGONFNEB8591-65-03 10:37:00 Test Item Value Reference Range Interpretation Comments PTT (test code = PTT) 25.0 s 22.9-35.8 [facility] EjvrxhhDQKKOETBFJ5187-74-03 10:37:0070.5[facility]annHEMATOLOGY 2020-08-29 10:37:0018.8[facility] XejrossUWALQEZWJN8015-82-26 10:37:009.5[facility] VnkjsdeBTJAVHTKUY3697-55-67 10:37:000.9[facility] VsyrwwkKYSDEOAMVL9383-15-74 10:37:000.3[facility] DhyfrohSFUQONKPNF2224-31-97 10:37:004.8[facility] KNWLPWNMYH2624-03-72 10:37:001.3[facility] KfcwfxmDRTLDDBEAU8176-66-20 10:37:000.6 [facility] AhimbujBKVDIYMRAY2550-87-04 10:37:000.1[facility] HermannHEMATOLOGY 2020-08-29 10:37:001+ *ABN*(08/29/20 5:37 AM)[facility] LhkxpnhOXILBIOTES7573-25-88 10:37:00Not Detected (08/29/20 5:37 AM)[facility] 2020-08-29 10:37:00Negative (08/29/20 5:37 AM)[facility]annCHEM YXWGP0168-91-74 10:37:20089Ndirinoi HermannCHEM EKJTB0153-61-41 10:37:0028[facility]annCHEM SAREW4204-72-18 10:37:001.01[facility]annCHEM KMXSG4888-02-52 10:37:82697 [facility]annCHE[facility] XLZJA4066-13-96 10:37:003.8[facility] HermannCHEM PANEL 2020-08-29 10:37:09632Eknstgks HermannCHEM FVIER9222-43-02 10:37:0028[facility]annCHEM XOLDG0778-50-01 10:37:009.8[facility] HermannCHEM GDYWG7123-04-09 10:37:0011.8[facility] HermannCHEM SPADX2251-27-58 10:37:0059[facility]annCHEM CXUGE6627-67-12 10:37:002.9[facility] HsgebciRJCQNBNJCA0121-61-04 10:37:006.8 [facility] MyzjgriICNRECCBRV2354-86-91 10:37:004.47[facility]annHEMATOLOGY 2020-08-29 10:37:0010.6[facility] SecjxfnPTKQQZIPPF9491-80-51 10:37:0034.0[facility] OqplkmpFTXBUOBRDU0943-45-18 10:37:0076.1[facility] LwrcxjiGOYPHADJZE2003-27-95 10:37:00 Test Item Value Reference Range Interpretation Comments MCH (test code = MCH) 23.8 pg 27.0-31.0 [facility] LodafdvIBTOGIGJWA6630-86-60 10:37:0031.3[facility] HermannHEMATOLOGY 2020-08-29 10:37:0018.2[facility] UgiibbgWGPHXFQWET5856-90-04 10:37:33718Kexxlgck JxqhtbwISZMZCKKMP3379-68-56 10:37:007.5[facility] LdicrvxTRRJFTKEKW6572-56-27 10:37:00 Test Item Value Reference Range Interpretation Comments PT (test code = PT) 12.8 s 12.0-14.7 [facility] GsnbvhjRLJUSRIJYP5778-53-33 10:37:00 Test Item Value Reference Range Interpretation Comments INR (test code = INR) 0.97 1 0.85-1.17 [facility] TjraajjUZTRNWCLSD5801-25-51 10:37:00 Test Item Value Reference Range Interpretation Comments PTT (test code = PTT) 25.0 s 22.9-35.8 [facility] RkijwbcRGXFERZDZI6584-87-58 10:37:0070.5[facility] HermannHEMATOLOGY 2020-08-29 10:37:0018.8[facility] KsvfnhlUHBCBDGCCF5721-22-38 10:37:009.5[facility] VthuwraDCCCPKFQGJ5681-29-44 10:37:000.9[facility] FsllydwNNRLUPQEVK8978-69-07 10:37:000.3[facility] IlydmixKNTRZHMMAX4749-61-00 10:37:004.8[facility] EHFURKCXJK9496-87-47 10:37:001.3[facility] XzscuvhWKABDQQYHD7176-99-28 10:37:000.6 [facility] NnnmynwRNFFZDWGZI3151-07-90 10:37:000.1[facility] HermannHEMATOLOGY 2020-08-29 10:37:001+ *ABN*(08/29/20 5:37 AM)[facility] HwubezdXLAWWFTBHK6417-84-50 10:37:00Not Detected (08/29/20 5:37 AM)[facility] HermannBLOOD BANK RESULTS 2020-08-29 10:37:00Negative (08/29/20 5:37 AM)[facility] HermannCHEM EIDUS0408-02-79 10:37:31644Gozcglcy HermannCHEM BDIYW3234-30-88 10:37:0028[facility] HermannCHEM VRXFD3525-85-36 10:37:001.01[facility] HermannCHEM LBARJ8860-39-56 10:37:63028 [facility]annCHEM FSWPY9614-35-77 10:37:003.8[facility] HermannCHEM PANEL 2020-08-29 10:37:48843Bxgezill HermannCHEM WPISA1002-39-90 10:37:0028[facility] HermannCHEM VUAZQ0798-81-95 10:37:009.8[facility] HermannCHEM XKUDW2877-06-01 10:37:0011.8[facility] HermannCHEM PQULH9883-01-50 10:37:0059[facility] HermannCHEM HAGBK9431-00-80 10:37:002.9[facility] HqhldavNZZLQPKPLE7448-22-69 10:37:006.8 [facility] MbyuztaQAQFJRSDXD5792-29-95 10:37:004.47[facility] HermannHEMATOLOGY 2020-08-29 10:37:0010.6[facility] IkfzmfkDDYRCUUYBH6095-19-48 10:37:0034.0[facility] BpdbkoeFITRDZFXPX2137-02-59 10:37:0076.1[facility] YirervfGJQYBUXCMS5742-20-68 10:37:00 Test Item Value Reference Range Interpretation Comments MCH (test code = MCH) 23.8 pg 27.0-31.0 [facility] SbfidzoSXVCPKNDHA9956-54-16 10:37:0031.3[facility] HermannHEMATOLOGY 2020-08-29 10:37:0018.2[facility] AnschqcUUZWITQMXT4632-30-11 10:37:55093Wmfgvlsk AftcqbhMCKHHLASNU1325-14-36 10:37:007.5[facility] XhauyvtYJASJHTDNT1182-37-07 10:37:00 Test Item Value Reference Range Interpretation Comments PT (test code = PT) 12.8 s 12.0-14.7 [facility] HelttqlCWBUMXPPKR9717-33-19 10:37:00 Test Item Value Reference Range Interpretation Comments INR (test code = INR) 0.97 1 0.85-1.17 [facility] JjmgkezPENATWUFQV9728-24-94 10:37:00 Test Item Value Reference Range Interpretation Comments PTT (test code = PTT) 25.0 s 22.9-35.8 [facility] IlequhjUILRWHMVGF3370-86-03 10:37:0070.5[facility] HermannHEMATOLOGY 2020-08-29 10:37:0018.8[facility] HtbjnweUISMEAQYZQ0726-97-72 10:37:009.5[facility] AtkiopwPOAMXAPSQP2527-60-21 10:37:000.9[facility] QvblihqWDRURJHTMG1962-71-54 10:37:000.3[facility] RgpzfdcGULNVTQMFQ1260-63-56 10:37:004.8[facility] HXFKHZVBGS8610-98-52 10:37:001.3[facility] ByazgpbXEULOHZBBT3006-87-39 10:37:000.6 [facility] UmmfopgTUIXVEJHFL5923-63-42 10:37:000.1[facility] HermannHEMATOLOGY 2020-08-29 10:37:001+ *ABN*(08/29/20 5:37 AM)[facility] TbokkqhXQRPIFBIYV3281-59-29 10:37:00Not Detected (08/29/20 5:37 AM)[facility]annBLOOD BANK RESULTS 2020-08-29 10:37:00Negative (08/29/20 5:37 AM)[facility] HermannCHEM PSNTQ2447-47-64 10:37:06942Amyadnza HermannCHEM SRBJT1299-76-50 10:37:0028[facility] HermannCHEM UKPRS7414-91-65 10:37:001.01[facility] HermannCHEM ROTTN6668-39-69 10:37:16095 [facility]annCHEM YIGBZ7321-71-31 10:37:003.8[facility] HermannCHEM PANEL 2020-08-29 10:37:82160Opibdagg HermannCHEM UPAOZ0167-13-88 10:37:0028[facility] HermannCHEM PTSWM2718-61-35 10:37:009.8[facility] HermannCHEM VFCSG1775-20-73 10:37:0011.8[facility] HermannCHEM JJILP2912-97-38 10:37:0059[facility] HermannCHEM DOOVJ4707-28-60 10:37:002.9[facility] UjynfhcKCNAQRHTEQ3576-57-22 10:37:006.8 [facility] EkavlarPRROTACVPK6080-73-33 10:37:004.47[facility] HermannHEMATOLOGY 2020-08-29 10:37:0010.6[facility] ZzpvpgkDTFKTEDNVR9579-57-82 10:37:0034.0[facility] HnnuwnmTLBOGYMERU2339-77-02 10:37:0076.1[facility] FiyvpmrIBHLKVWCNP2667-14-93 10:37:00 Test Item Value Reference Range Interpretation Comments MCH (test code = MCH) 23.8 pg 27.0-31.0 [facility] KdwupovKRKEVGAXXJ8583-15-73 10:37:0031.3[facility] HermannHEMATOLOGY 2020-08-29 10:37:0018.2[facility] WksuzaaRMDJIFOVYG0480-45-48 10:37:08293Nvteffup UpewnsbVIBTGKDKHS4295-00-36 10:37:007.5[facility] ZkgvpifWVYLWJVCHJ0316-69-94 10:37:00 Test Item Value Reference Range Interpretation Comments PT (test code = PT) 12.8 s 12.0-14.7 [facility] ShpdmqkDOUVBZJUQZ2640-83-37 10:37:00 Test Item Value Reference Range Interpretation Comments INR (test code = INR) 0.97 1 0.85-1.17 [facility] LfsmhhoXXQFVDYCEJ0487-82-80 10:37:00 Test Item Value Reference Range Interpretation Comments PTT (test code = PTT) 25.0 s 22.9-35.8 [facility] XiapbmrJFKUNAIRBQ9570-62-96 10:37:0070.5[facility]annHEMATOLOGY 2020-08-29 10:37:0018.8[facility] FdtwkfyWHIXGTKAFX5725-91-72 10:37:009.5[facility] NehzhrlKKDEQHJYPG0897-77-77 10:37:000.9[facility] PamqksmMIKRGJWFFK9568-50-02 10:37:000.3[facility] CriwjhwDFZJWWUMIG2117-98-72 10:37:004.8[facility] LRFCLDUDLS8211-96-35 10:37:001.3[facility] ExkozkgCDUGCUSABM5620-99-29 10:37:000.6 [facility] WglfgjkJTQOWGOAMC5089-62-68 10:37:000.1[facility] HermannHEMATOLOGY 2020-08-29 10:37:001+ *ABN*(08/29/20 5:37 AM)[facility] VpdksniOVBOKNWZBR4583-61-14 10:37:00Not Detected (08/29/20 5:37 AM)[facility]annBL[facility]OD BANK RESULTS 2020-08-29 10:37:00Negative (08/29/20 5:37 AM)[facility] HermannCHEM OLMLH6467-39-64 10:37:82513Oipiabuh HermannCHEM PWPOB5434-52-83 10:37:0028[facility] HermannCHEM VKHEY2248-22-31 10:37:001.01[facility] HermannCHEM MODQJ3314-97-40 10:37:47496 [facility]annCHEM OHKVW4393-65-54 10:37:003.8[facility] HermannCHEM PANEL 2020-08-29 10:37:39080Otsxeufx HermannCHEM OEEAO1857-63-36 10:37:0028[facility] HermannCHEM PYSEM9747-20-15 10:37:009.8[facility] HermannCHEM EINWD9566-35-32 10:37:0011.8[facility] HermannCHEM FKNQZ7365-79-83 10:37:0059[facility] HermannCHEM RTUBU0444-90-38 10:37:002.9[facility] YnzjbspEMXOPGUMWZ0838-41-77 10:37:006.8 [facility] GfgbbelHCHBARJNHL1725-82-36 10:37:004.47[facility] HermannHEMATOLOGY 2020-08-29 10:37:0010.6[facility] AuirxplUHXFRYYLIU2109-16-64 10:37:0034.0[facility] ZlbpogfHSLZFBJAPC7287-29-25 10:37:0076.1[facility] MqsarahDLJVMWHVOJ2763-21-17 10:37:00 Test Item Value Reference Range Interpretation Comments MCH (test code = MCH) 23.8 pg 27.0-31.0 [facility] YtbzrvsGFARAMDRZT9660-39-77 10:37:0031.3[facility] HermannHEMATOLOGY 2020-08-29 10:37:0018.2[facility] FcwhpjsDTUDYMQYAN2345-96-99 10:37:57492Pkpmzgle EguhscoKZHIGMJKLU1791-74-87 10:37:007.5[facility] LqdifysEYPBNKTXCE2355-18-67 10:37:00 Test Item Value Reference Range Interpretation Comments PT (test code = PT) 12.8 s 12.0-14.7 [facility] GokthqrHKWBBSDZVY9268-07-85 10:37:00 Test Item Value Reference Range Interpretation Comments INR (test code = INR) 0.97 1 0.85-1.17 [facility] ChuzxecKKJXDPYFNC8268-97-13 10:37:00 Test Item Value Reference Range Interpretation Comments PTT (test code = PTT) 25.0 s 22.9-35.8 [facility] ZilqwvwGUCBZSSSHR4372-10-56 10:37:0070.5[facility] HermannHEMATOLOGY 2020-08-29 10:37:0018.8[facility] KcqioloZSTZPFUIWX6583-92-49 10:37:009.5[facility] WfmxyhmEEWSPMYMOP9312-37-91 10:37:000.9[facility] AdnglivOKQUOINMCL7268-67-46 10:37:000.3[facility] RrpwgmcOCJFFGLGSG0823-08-50 10:37:004.8[facility] UUXPZAJNLL4124-91-44 10:37:001.3[facility] EdkwyaxRRWJVMSQAU9860-07-58 10:37:000.6 [facility] ZcfjsvpPZHYKYNNSH9060-72-13 10:37:000.1[facility] HermannHEMATOLOGY 2020-08-29 10:37:001+ *ABN*(08/29/20 5:37 AM)[facility] XntnihrQVSRDIPDJB2764-31-90 10:37:00Not Detected (08/29/20 5:37 AM)[facility]annBL[facility]OD BANK RESULTS 2020-08-29 10:37:00Negative (08/29/20 5:37 AM)[facility] HermannCHEM FYXYV6715-90-46 10:37:16416Ndckisar HermannCHEM INQGP2809-20-10 10:37:0028[facility] HermannCHEM PNGWK0912-08-65 10:37:001.01[facility] HermannCHEM GQDIQ8999-86-18 10:37:22590 [facility]annCHEM EHYFA0280-57-08 10:37:003.8[facility] HermannCHEM PANEL 2020-08-29 10:37:30085Kdtnackg HermannCHEM KBVIX3273-90-28 10:37:0028[facility] HermannCHEM XMMIG5909-44-75 10:37:009.8[facility] HermannCHEM HEAHW5627-68-95 10:37:0011.8[facility] HermannCHEM TKUTH1866-50-05 10:37:0059[facility] HermannCHEM JXQDO1769-87-04 10:37:002.9[facility] XzscocyAJKQRZYFMX6004-83-89 10:37:006.8 [facility] OwzxfqvTZIINNUVVA3118-59-41 10:37:004.47[facility]annHEMATOLOGY 2020-08-29 10:37:0010.6[facility] DyulwzeLDFSZYQBVV8600-21-41 10:37:0034.0[facility] YzfmcerQDNJBPJNCX2390-94-26 10:37:0076.1[facility] OnrwhsuLLATPGYVIG2613-04-78 10:37:00 Test Item Value Reference Range Interpretation Comments MCH (test code = MCH) 23.8 pg 27.0-31.0 [facility] ZpgwrxlLLXKVYLUHZ3245-47-06 10:37:0031.3[facility] HermannHEMATOLOGY 2020-08-29 10:37:0018.2[facility] JubppxiDJNYIXSONA0545-05-37 10:37:96623Uapylaob MggkyhzEAGUNTKBUG1716-52-90 10:37:007.5[facility] DywbswaBSXRQLBADP4118-21-78 10:37:00 Test Item Value Reference Range Interpretation Comments PT (test code = PT) 12.8 s 12.0-14.7 [facility] TqhdzszBGVSEGTBIV3792-91-72 10:37:00 Test Item Value Reference Range Interpretation Comments INR (test code = INR) 0.97 1 0.85-1.17 [facility] SiuknmlKBHVJJDGQC0136-78-60 10:37:00 Test Item Value Reference Range Interpretation Comments PTT (test code = PTT) 25.0 s 22.9-35.8 [facility] ZihcdttVOMJNLIFCL2047-99-18 10:37:0070.5[facility] HermannHEMATOLOGY 2020-08-29 10:37:0018.8[facility] XknxwpwHYWKFGSALN1192-24-35 10:37:009.5[facility] TyiogvoGVMMGPOHPH9080-20-94 10:37:000.9[facility] EtwvwuvVRIBUVGTVT4209-48-42 10:37:000.3[facility] FjvenwrRZZCTIHMUD5566-84-97 10:37:004.8[facility] QMQZUUGFTD4381-12-92 10:37:001.3[facility] KvaeaxoQEOAFULZIP2703-54-84 10:37:000.6 [facility] BznffoaTQORDOUMLX6013-89-58 10:37:000.1[facility] HermannHEMATOLOGY 2020-08-29 10:37:001+ *ABN*(08/29/20 5:37 AM)[facility]btalWANUEKVFKG4573-15-52 10:37:00Not Detected (08/29/20 5:37 AM)[facility] TV,PCR, IN FSDSJ9095-65-28 15:38:00 Test Item Value Reference Range Interpretation Comments FT (test code = CHTR) Not detected (qualifier Not Detected N value) FT (test code = Not detected (qualifier Not Detected N NGONO) value) FT (test code = TRVG) Not detected (qualifier Not Detected N value) [facility] SDWDIRVRICC0861-94-57 10:57:00 Test Item Value Reference Range Interpretation Comments Color (test code = UCOLR) Dk. Yellow Clarity (test code = UCLAR) Hazy Glucose (test code = UGLUC) NEGATIVE NEGATIVE N Bilirubin (test code = UBILI) NEGATIVE NEGATIVE N Ketones (test code = UKET) NEGATIVE NEGATIVE N Specific [place] (test code = 1.025 1.005-1.030 A USPGR) [...] None Seen N URCRYS) [facility]"
[2022-05-07] MEDS ORDERED: MORPHINE 2 MG/ML SYR ONE (10:42)
[2022-05-07 11:24] LABS: Hematocrit 36.2 % (36.0-45.0); MCV 91.2 fL (80-100); MPV 7.1 fL (7.6-11.3); RBC Red Blood Cell Count 3.97 M/uL (3.86-4.86)
[2022-05-07 11:40] LABS: Albumin 3.1 g/dL (3.4-5.0); Bilirubin Total 0.4 mg/dL (0.2-1.0); Potassium 3.1 mmol/L (3.5-5.1); Protein, Total 6.9 g/dL (6.4-8.2); Troponin High Sensitivity 32.6 pg/mL (<58.9)
--- NOTE | 2022-05-07 12:28 | RAD REPORT ---
EXAM DESCRIPTION: Noemit Single View05/07/2022 11:28 am CLINICAL HISTORY: Shortness of breath COMPARISON: May 04, 2022 FINDINGS: Mild prominence right hilum Lungs otherwise appear clear. Heart is borderline enlarged IMPRESSION: Mild prominence right hilum all represent pulmonary vessels. Lymphadenopathy can also restrepo ve this appearance. A PA and lateral chest series is recommended
--- NOTE | 2022-05-07 13:12 | ER ---
Nurse's Notes [facility] Name: Marjan Kolb Age: 67 yrs Sex: Female : 1955 Arrival Date: 05/07/2022 Time: 10:05 Bed 19 Private MD: Diagnosis: Covid Presentation: 05/07 10:08 Chief complaint: EMS states: "pt is reporting shortness of breath for 1 day and jd3 chest/epigastric pain that started at 0400 this morning. she reports the pain at 9/10. we gave 324 of aspirin. she was also seen here and at [facility] yesterday for the same reasons and she found she was COVID + (pos).". Coronavirus screen: At this time, the client does not indicate any symptoms associated with coronavirus-19. Ebola Screen: No symptoms or risks identified at this time. Initial Sepsis Screen: Does the patient meet any 2 criteria? No. Patient's initial sepsis screen is negative. Does the patient have a suspected source of infection? No. Patient's initial sepsis screen is negative. Risk Assessment: Do you want to hurt yourself or someone else? Patient reports no desire to harm self or others. Onset of symptoms was May 06, 2022. 10:08 Method Of Arrival: EMS: [facility] jd3 10:08 Acuity: BLAYNE 3 jd3 Historical: - Allergies: 10:12 Bactrim; jd3 10:12 butorphanol; jd3 10:12 Fentanyl; jd3 10:12 Reglan; jd3 10:12 Sulfa (Sulfonamide Antibiotics); jd3 10:12 TRIMETHOPRIM; jd3 - PMHx: 10:12 Anxiety; Atrial fibrillation; Bipolar disorder; esophageal varicies; Hepatitis; HIV jd3 positive; Hypertensive disorder; Migraine; panic attack; - Immunization history:: Adult Immunizations up to date, Client reports receiving the 2nd dose of the Covid vaccine, Flu vaccine is up to date. - Social history:: Smoking status: Patient/guardian denies using tobacco, but has a distant history of tobacco abuse. - Family history:: not pertinent. Screenin:13 [facility] ED Fall Risk Assessment (Adult) History of falling in the last 3 months, kc6 including since admission Confusion or Disorientation No (0 pts) Intoxicated or Sedated No (0 pts) Impaired Gait Yes (1 pt) Mobility Assist Device Used No (0 pt) Altered Elimination Yes (1 pt). [facility] ED Fall Risk Assessment (Adult) History of falling in the last 3 months, including since admission Yes- physiologic fall (2 pts) Confusion or Disorientation Intoxicated or Sedated Impaired Gait Mobility Assist Device Used Altered Elimination Score/Fall Risk Level 3 or more points = High Risk Oriented to surroundings, Maintained a safe environment, Educated pt \\T\\ family on fall prevention, incl call for assistance when getting out of bed, Assessed \\T\\ reinforced patient's understanding of fall precautions, Provided non-skid footwear, Hourly rounding (assess needs \\T\\ fall precautionary measures) done, Used ambulatory aids as needed (educated on \\T\\ assisted with), Used gait belt as appropriate Implemented a Fall Risk Plan of Care, Apply high fall risk patient identification: yellow non skid footwear/ fall signage, Remained with patient while ambulating. Humpty Dumpty Scale Fall Assessment Tool (age< 18yrs). Abuse screen: Denies threats or abuse. Denies injuries from another. Nutritional screening: No deficits noted. Tuberculosis screening: No symptoms or risk factors identified. Fall Risk Fall in past 12 months (25 points). No secondary diagnosis (0 pts). No IV (0 pts). Ambulatory Aid- None/Bed Rest/Nurse Assist (0 pts). Gait- Weak (10 pts.). Mental Status- Oriented to own ability (0 pts). Total Hauser Fall Scale indicates Low Risk Score (25-44 pts). Fall prevention measures have been instituted. Side Rails Up X 2 Placed close to Nursing Station Frequent Obs/Assesments occuring Family Present and informed to notify staff if they need to leave bedside As available Patient and Family Educated on Fall Prevention Program and strategies. Assessment: 10:10 General: Appears in no apparent distress. comfortable, Behavior is calm, cooperative, kc6 appropriate for age. Pain: Complains of pain in left upper quadrant Pain does not radiate. Pain currently is 9 out of 10 on a pain scale. Quality of pain is described as sharp, Pain began at about 4am this morning. Is intermittent, Alleviated by nothing. Aggravated by eating, drinking, Also complains of no other associated symptoms. Neuro: Gonzalez Agitation-Sedation Scale (RASS): 0 - Alert and Calm Level of Consciousness is awake, alert, obeys commands, Oriented to person, place, time, situation, Appropriate for age. Cardiovascular: Heart tones S1 S2 present Capillary refill < 3 seconds. Respiratory: Airway is patent Trachea midline Respiratory effort is even, unlabored, Respiratory pattern is regular, symmetrical, Breath sounds are clear bilaterally. GI: Abdomen is flat, non-distended, Bowel sounds present X 4 quads. Abd is soft X 4 quads Abdomen is tender to palpation in left upper quadrant Reports upper abdominal pain, diarrhea, nausea, vomiting. : No signs and/or symptoms were reported regarding the genitourinary system. EENT: No signs and/or symptoms were reported regarding the EENT system. Derm: No signs and/or symptoms reported regarding the dermatologic system. Skin is intact, Skin is pink, warm \\T\\ dry. Musculoskeletal: No signs and/or symptoms reported regarding the musculoskeletal system. Circulation, motion, and sensation intact. Capillary refill < 3 seconds, Range of motion: intact in all extremities. 11:10 Reassessment: Patient appears in no apparent distress at this time. No changes from kc6 previously documented assessment. Patient and/or family updated on plan of care and expected duration. Pain level reassessed. Patient is alert, oriented x 3, equal unlabored respirations, skin warm/dry/pink. 12:10 Reassessment: Patient appears in no apparent distress at this time. No changes from kc6 previously documented assessment. Patient and/or family updated on plan of care and expected duration. Pain level reassessed. Patient is alert, oriented x 3, equal unlabored respirations, skin warm/dry/pink. 13:08 Reassessment: Patient appears in no apparent distress at this time. No changes from kc6 previously documented assessment. Patient and/or family updated on plan of care and expected duration. Pain level reassessed. Patient is alert, oriented x 3, equal unlabored respirations, skin warm/dry/pink. 14:23 Reassessment: Spoke to Mr. Kolb, , for pt discharge, Mr. Kolb jl7 states "I don't get off until 1530 then I'll be there to get her.". 14:33 Reassessment: client stated she refuses to wait in the lobby for her to pick kc6 her up. stated she wants to speak to "the help desk support specialist of the hospital or I will call my document review attorney." ASHLEY Mooney and housekeeper nanny notified. client refused to sign discharge paperwork. Vital Signs: 10:12 BP 132 / 94; Pulse 48; Resp 22 S; Temp 97.8(TE); Pulse Ox 95% on R/A; Weight 78.93 kg jd3 (R); Height 5 ft. 4 in. (162.56 cm) (R); Pain 9/10; 11:19 BP 133 / 88; Pulse 53; Resp 14 S; Pulse Ox 100% on R/A; Pain 9/10; kc6 12:21 BP 135 / 81; Pulse 52; Resp 16 S; Pulse Ox 100% on R/A; kc6 13:08 BP 153 / 80; Pulse 52; Resp 17 S; Pulse Ox 98% on R/A; kc6 10:12 Body Mass Index 29.87 (78.93 kg, 162.56 cm) jd3 ED Course: 10:05 Patient arrived in ED. eb 10:05 Madyson Mills RN is Primary Nurse. kc6 10:12 Triage completed. jd3 10:12 Howard Samaniego MD is Attending Physician. rt 10:13 Arm band placed on. jd3 11:12 Accessed peripheral vein via ultrasound, utilizing dynamic ultrasound technique using jd3 20G Nexia IV catheter ,sterile technique, per hospital protocol. Clean \\T\\ dry. Dressing intact. Good blood return. Flushes easily. 20 G to left AC. 11:30 Chest Single View XRAY In Process Unspecified. EDMS 14:35 Patient has correct armband on for positive identification. Bed in low position. Call kc6 light in reach. Side rails up X2. 14:35 No provider procedures requiring assistance completed. IV discontinued, intact, kc6 bleeding controlled, No redness/swelling at site. Pressure dressing applied. Administered Medications: 11:19 Drug: morphine 2 mg Route: IVP; Infused Over: 2 mins; Site: left antecubital; kc6 12:22 Follow up: Response: No adverse reaction; Pain is decreased; RASS: Alert and Calm (0) kc6 Medication: 14:36 VIS not applicable for this client. kc6 Outcome: 13:11 Discharge ordered by . rt 14:35 Discharged to home via wheelchair. kc6 14:35 Condition: stable 14:35 Discharge instructions given to patient, Instructed on discharge instructions, Demonstrated understanding of instructions. 14:36 Patient left the ED. kc6 Signatures: Dispatcher [employer] Jesica Delvalle RN RN jl7 Gerard Boston RN RN jd3 Jo Ann Huynh Kaitlyn, RN RN kc6 Howard Samaniego MD MD rt Corrections: (The following items were deleted from the chart) 14:37 14:33 Reassessment: client stated she refuses to wait in the lobby for her to kc6 pick her up. stated she wants to speak to "the help desk support specialist of the hospital or I will call my document review attorney." ASHLEY Mooney and housekeeper nanny notified. kc6
--- NOTE | 2022-05-07 13:12 | EDPHYS ---
Physician Documentation [facility] Name: Marjan Kolb Age: 67 yrs Sex: Female : 1955 Arrival Date: 05/07/2022 Time: 10:05 Bed 19 Private MD: ED Physician Howard Samaniego HPI: 05/07 10:56 This 67 yrs old Female presents to ER via EMS with complaints of Up, dyspnea, headache. rt 10:56 Onset: The symptoms/episode began/occurred yesterday. Modifying factors: The symptoms rt are alleviated by nothing, the symptoms are aggravated by nothing. Presents to the ED with a cough, pleuritic chest pain, shortness of breath starting yesterday. She was seen at [place] [facility] where she was diagnosed with COVID. The patient reports a headache but denies other acute complaints at this time. Symptoms are moderate severity, no other aggravating or alleviating factors.. Historical: - Allergies: 10:12 Bactrim; jd3 10:12 butorphanol; jd3 10:12 Fentanyl; jd3 10:12 Reglan; jd3 10:12 Sulfa (Sulfonamide Antibiotics); jd3 10:12 TRIMETHOPRIM; jd3 - PMHx: 10:12 Anxiety; Atrial fibrillation; Bipolar disorder; esophageal varicies; Hepatitis; HIV jd3 positive; Hypertensive disorder; Migraine; panic attack; - Immunization history:: Adult Immunizations up to date, Client reports receiving the 2nd dose of the Covid vaccine, Flu vaccine is up to date. - Social history:: Smoking status: Patient/guardian denies using tobacco, but has a distant history of tobacco abuse. - Family history:: not pertinent. ROS: 10:56 Constitutional: Negative for fever, chills, and weight loss, Eyes: Negative for injury, rt pain, redness, and discharge, Abdomen/GI: Negative for abdominal pain, nausea, vomiting, diarrhea, and constipation, MS/Extremity: Negative for injury and deformity, Skin: Negative for injury, rash, and discoloration, Psych: Negative for depression, anxiety, suicide ideation, homicidal ideation, and hallucinations. 10:56 ENT: Positive for rhinorrhea, sore throat. 10:56 Cardiovascular: Positive for chest pain, Negative for edema. 10:56 Respiratory: Positive for cough, shortness of breath. 10:56 Neuro: Positive for headache, Negative for altered mental status. Exam: 10:56 Constitutional: This is a well developed, well nourished patient who is awake, alert, rt and in no acute distress. Head/Face: Normocephalic, atraumatic. Eyes: Pupils equal round and reactive to light, extra-ocular motions intact. Lids and lashes normal. Conjunctiva and sclera are non-icteric and not injected. Cornea within normal limits. Periorbital areas with no swelling, redness, or edema. ENT: Nares patent. No nasal discharge, no septal abnormalities noted. Tympanic membranes are normal and external auditory canals are clear. Oropharynx with no redness, swelling, or masses, exudates, or evidence of obstruction, uvula midline. Mucous membranes moist. Neck: Trachea midline, no thyromegaly or masses palpated, and no cervical lymphadenopathy. Supple, full range of motion without nuchal rigidity, or vertebral point tenderness. No Meningismus. Chest/axilla: Normal chest wall appearance and motion. Nontender with no deformity. No lesions are appreciated. Cardiovascular: Regular rate and rhythm with a normal S1 and S2. No gallops, murmurs, or rubs. Normal PMI, no JVD. No pulse deficits. Respiratory: Lungs have equal breath sounds bilaterally, clear to auscultation and percussion. No rales, rhonchi or wheezes noted. No increased work of breathing, no retractions or nasal flaring. Abdomen/GI: Soft, non-tender, with normal bowel sounds. No distension or tympany. No guarding or rebound. No evidence of tenderness throughout. Skin: Warm, dry with normal turgor. Normal color with no rashes, no lesions, and no evidence of cellulitis. MS/ Extremity: Pulses equal, no cyanosis. Neurovascular intact. Full, normal range of motion. Neuro: Awake and alert, GCS 15, oriented to person, place, time, and situation. Cranial nerves II-XII grossly intact. Motor strength 5/5 in all extremities. Sensory grossly intact. Cerebellar exam normal. Normal gait. Psych: Awake, alert, with orientation to person, place and time. Behavior, mood, and affect are within normal limits. Vital Signs: 10:12 BP 132 / 94; Pulse 48; Resp 22 S; Temp 97.8(TE); Pulse Ox 95% on R/A; Weight 78.93 kg jd3 (R); Height 5 ft. 4 in. (162.56 cm) (R); Pain 9/10; 11:19 BP 133 / 88; Pulse 53; Resp 14 S; Pulse Ox 100% on R/A; Pain 9/10; kc6 12:21 BP 135 / 81; Pulse 52; Resp 16 S; Pulse Ox 100% on R/A; kc6 13:08 BP 153 / 80; Pulse 52; Resp 17 S; Pulse Ox 98% on R/A; kc6 10:12 Body Mass Index 29.87 (78.93 kg, 162.56 cm) jd3 MDM: 10:27 Patient medically screened. rt 13:41 Differential Diagnosis: Bronchitis Influenza Upper Respiratory Infection Pneumonia. rt Data reviewed: vital signs, nurses notes, old medical records. ED course: Patient presents to the ED on COVID symptoms as well as headache, cough, congestion, chest pain. Her symptoms seem to be pleuritic in nature. Symptoms are improving treatment in the ED. Do not suspect meningitis or encephalitis. Do not believe that CT or lumbar puncture are indicated at this time. Labs reveal an elevated creatinine, meeting criteria for acute kidney injury. Suspect this is due to NSAID use, counseled the patient against this. At this time, patient not likely to benefit from admission to the hospital. Stable for outpatient care.. 05/07 10:35 Order name: CBC w/o diff; Complete Time: 11:41 rt 12 10:35 Order name: CMP; Complete Time: 11:41 rt 05/07 10:35 Order name: Troponin High Sensitivity; Complete Time: 11:41 rt 05/07 10:35 Order name: Chest Single View XRAY; Complete Time: 12:29 rt Administered Medications: 11:19 Drug: morphine 2 mg Route: IVP; Infused Over: 2 mins; Site: left antecubital; kc6 12:22 Follow up: Response: No adverse reaction; Pain is decreased; RASS: Alert and Calm (0) kc6 Disposition Summary: 05/07/22 13:11 Discharge Ordered Location: Home rt Problem: new rt Symptoms: have improved rt Condition: Stable rt Diagnosis - Covid rt Followup: rt - With: Private Physician - When: 2 - 3 days - Reason: Discharge Instructions: - Discharge Summary Sheet rt - COVID-19 rt Forms: - Medication Reconciliation Form rt - Thank You Letter rt - Antibiotic Education rt - Prescription Opioid Use rt Signatures: Dispatcher [employer] Gerard Epstein RN RN jd3 Madyson Mills RN RN kc6 Howard Samaniego MD MD rt
[2022-05-07 14:46] VITALS: TEMP 97.8
[2022-05-07 14:49] VITALS: BP 153/80; O2SAT 98
== END 2022-05-07 14:36 | disposition home or self-care (01) ==
LOC: ER 10:02
DX: U07.1 COVID-19 (principal); I10 Essential (primary) hypertension; I48.91 Unspecified atrial fibrillation; Z21 Asymptomatic human immunodeficiency virus [HIV] infection status
CPT/HCPCS: 36415; 85027; 84484; 80053; 71045; 96374; 99284; J2270

== ENCOUNTER 2022-05-09 13:24 | Emergency (ER) | payer OTHER ==
--- OUTSIDE RECORDS SUMMARY | 2022-05-09 13:41 | XMS REPORT | Continuity of Care Document ---
:1955 Author Organization [facility] t Address [address] [place] [address] Care Team Providers Name Role Phone Urmila Rahman Primary Care Physician ELAN LIRA Attending Clinician Unavailable KINJAL, BEVERLY Attending Clinician Unavailable SANTIAGO CARDENAS Attending Clinician Unavailable THERESA HICKMAN Attending Clinician Unavailable Theresa Hickman DO Attending Clinician Santiago Sanchez Attending Clinician ANETTE OLEA Attending Clinician Unavailable Anette Olea MD Attending Clinician PAULETTE GRAY Attending Clinician Unavailable Gray PAC, Paulette S Attending Clinician UNKNOWN, ATTENDING Attending Clinician Unavailable Devin SALGUERO, Robbi Hairston Attending Clinician [facility] Attending Clinician Unavailable Isaias Whiteside RN Attending Clinician Unavailable TOMY MARIE Attending Clinician Unavailable Reilly Means MD Attending Clinician Ofe Shields MD Attending Clinician Tomy Marie MD Attending Clinician Doctor Unassigned, [place] Attending Clinician Unavailable Bill COLES Attending Clinician Unavailable Bill Rose Attending Clinician CHARITY MCALLISTER Attending Clinician Unavailable Charity Mcallister MD Attending Clinician GADIEL KOEHLER Attending Clinician Unavailable Mike Lund Attending Clinician Unavailable NIKOLAI REEVES Attending Clinician Unavailable Eliseo Arce MD Attending Clinician Carol Ann IZQUIERDO, Sarai Lieberman Attending Clinician [phone] Ashly Pelletier MA Attending Clinician Unavailable Dagoberto Bass MD Attending Clinician [place] Evangelista Attending Clinician Lab, [facility] Pob I Attending Clinician Unavailable Monica Rodas MA Attending Clinician Unavailable Agustina Ortiz MA Attending Clinician Unavailable Rody Maguire RN Attending Clinician Unavailable Kirit Flood MD, V. Attending Clinician HEMATPOLIZ, BEVERLY Attending Clinician Unavailable Gloria Hinojosa Attending Clinician Xiao RAMIREZ, Michael Corbin Attending Clinician Unavailable Team, [facility] Attending Clinician UnavailDO PORSHA Newell Attending Clinician Unavailable Rodo JENKINS, Gadiel Attending Clinician Tyrone JENKINS, Eveline Sierra Attending Clinician Stanislav RAMIREZ, Eladio Inman Attending Clinician Unavailable Leyda Willis Attending Clinician [phone] Selvin RAMIREZ, Stefanie Attending Clinician Unavailable TOMY MARIE Admitting Clinician Unavailable Frank JENKINS, Tomy Admitting Clinician Bill COLES Admitting Clinician Unavailable Lacey UrmilaBibianaFrancisco Kristen Admitting Clinician Unavailable Mike Lund Admitting Clinician Unavailable ELISEO ARCE Admitting Clinician Unavailable DO PROSHA STREETER Admitting Clinician Unavailable Payers Payer Name Policy Type Policy Number Effective Date Expiration Date S gabino [facility] [id number] 2012 STAR PLUS OON 00:00:00 [facility] [id number] 2019 DUAL COMPLETE HMO 00:00:00 [facility] STAR [id number] 2019 PLUS 00:00:00 MEDICAID [facility] [id number] 2020 00:00:00 [facility] [id number] 2019 [place] [place] STAR 00:00:00 [employer] MEDICARE ADV [id number] 2019 2019 00:00:00 00:00:00 Problems Condition Condition [...] Added automatic ally from request for surgery [id number] Dysphagia Dysphagia Disease Active Overview: Methodi 4-[address] 00:00: g of this [facility]osp[facility] 00 note l might be different from the original. 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 Food Food Disease Active 2019-05 Methodi [...] [facility] hoxazole 1-25 Clear 00:00: Garcia 00 [facility] trimetho DA Active SV [facility] prim 1- Clear 00:00: Garcia 00 [facility] codeine DA Active SV N/V [facility] -25 Clear 00:00: Garcia [facility] Metoclop Propensi Active [place] ramide ty to 12-12 Health adverse 00:00: reaction 00 s BUTORPHA DRUG Active Unknown-Cmnt Un matt NOL INGREDI 11-25 ity of 00:00: [place] [facility] Butorpha Drug Active Unknown - Unive rs nol Allergy See comments 11-25 ity of 00:00: [place] [facility] Sulfamet Propensi Active [place] hoxazole ty to [...] Univers PRIM INGREDI 2-08 ity of 00:00: [place] [facility] Fentanyl Drug Active Other - [...] to Branch drug Bactrim Bactrim Active Get Ferugson Family History Family Member Diagnosis Comments Start Date Stop Date Source Natural father Diabetes [facility] Natural father Other - see comments [facility] Natural father Kidney disease Method [facility] Natural mother Cancer [facility] Social History Social Habit Start Date Stop Date Quantity Comments Source History SDOH [facility] Alcohol Frequency Hospita l History SDOH [place] Alcohol Std Drinks Hospit al History SDOH [facility] Alcohol Binge Hospital History [facility] Alcohol Comment Exposure to 2022-04-28 2022-05-08 Yes University SARS-CoV-2 (event) 00:00:00 16:26:00 [facility] Tobacco use and 2022-02-11 2022-02-11 Former smokeless Uni versity of exposure 00:00:00 00:00:00 tobacco user [place] [facility] [place] Tobacco Comment 2022-02-11 2022-02-11 Smokes approx 1-2 Un iversity of 00:00:00 00:00:00 cigarettes per [facility] [place] [facility] day when she Branch smokes Alcohol intake 2021-07-14 2021-07-14 Ex-drinker [facility] 00:00:00 00:00:00 (finding) Cigarettes smoked 2020-09-05 2020-09-[address] current (pack per 00:00[facility]00 [facility] - Reported Cigarette 2020-09-05 2020-09-05 [facility] pack-years 00:00:00 00:00:00 Hospital History of tobacco 2011-09-29 User of smokeless University of use 00:00:00 tobacco [facility] Sex Ass[birth year] [facility] 00:00:00 00:00:00 Smoking Status Start Date Stop Date Source Ex-smoker 2022-02-11 00:00:00 2022-02-11 00:00:00 [facility] Medications Ordered Filled Start Stop Current Ordering Indication Dosage Frequency Signature Comments Components Source Medication Medication Date Date Medication? Clinician (SIG) Name Name cefpodoxime 2021-05- Yes [id number] 100mg Take 1 Univers 100 mg 07-09 12-25 tablet by ity of tablet 00:00: 05:59 mouth in [place] 00 :00 the Medical morning Branch and 1 tablet in the evening. Do all this for 7 days. butalbital- 2021-05- No 1{tbl} 1 tablet, Univers acetaminoph 2-16 12-15 Oral, ity of en-caff 00:15: 23:19 ONCE, 1 [place] (ESGIC) 00 :00 dose, On Medical 50-325-40 [place] Branch mg tablet 1 05/06/22 tablet at 1815, JOE NaCl 0.9% 2021-05- No 500mL at 999 Univ ers (NS) bolus 2-16 12-16 mL/hr, 500 it y of infusion 00:00: 00:17 mL, IV [place] 500 mL 00 :00 Infusion, Medical ONCE, 1 Branch dose, On [place] 05/06/22 at 1800, JOE ketorolac 2021-05- No 15mg 15 mg, Unive rs (TORADOL) 2-15 12-15 Slow IV ity of injection 22:00: 22:19 Push, [place] 15 mg 00 :00 ONCE, 1 Medical dose, On Branch [facility] 05/06/22 at 1600, JOE NaCl 0.9% 2021-05- No 1000mL at 999 Uni vers (NS) bolus 2-15 12-15 mL/hr, ity of infusion 22:00: 23:41 1,000 mL, [place] 1,000 mL 00 :00 IV Medical Infusion, Branch ONCE, 1 dose, On [place] 05/06/22 at 1600, JOE ondansetron 2021-05 No 8mg 8 mg, Slow Univers (ZOFRAN 2-15 12-15 IV Push, ity of (PF)) 21:15: 22:19 ONCE, 1 [place] injection 8 00 :00 dose, On Medi porfirio mg [facility] 05/06/22 at 1515, JOE ondansetron 2021-05 Yes [id number] 1-2 U nivers 4 mg tablet 2-15 tablets ity o f 00:00: every 8 [place] 00 hours as Medical needed for Branch nausea benzonatate 2021-05 Yes [id number] 200mg Take 1 Univers 200 mg 2-15 capsule by ity of capsule 00:00: mouth 3 [place] 00 (three) Medical times Branch daily as needed for Cough. albuterol 2021-05 Yes [id number] 2{puff} Inhale 2 Univers 90 2-15 Puffs ity of mcg/actuati 00:00: every 4 [place] on inhaler 00 (four) Medical hours as Branch needed for Wheezing or Shortness of Breath. butalbital- 2021-05 Yes [id number] 1{tbl} Take 1 Univers acetaminoph 2-15 tablet by ity of en-caff 00:00: mouth [place] 50-325-40 00 every 4 Medical mg tablet (four) Branch hours as needed (headache) . ondansetron 2021-05 Yes [id number] 1-2 U nivers 4 mg tablet 2-15 tablets ity o f 00:00: every 8 [place] 00 hours as Medical needed for Branch nausea benzonatate 2021-05 Yes [id number] 200mg Take 1 Univers 200 mg 2-15 capsule by ity of capsule 00:00: mouth 3 [place] 00 (three) Medical times Branch daily as needed for Cough. albuterol 2021-05 Yes [id number] 2{puff} Inhale 2 Univers 90 2-15 Puffs ity of mcg/actuati 00:00: every 4 [place] on inhaler 00 (four) Medical hours as Branch needed for Wheezing or Shortness of Breath. butalbital- 2021-05 Yes [id number] 1{tbl} Take 1 Univers acetaminoph 2-15 tablet by ity of en-caff 00:00: mouth [place] 50-325-40 00 every 4 Medical mg tablet (four) Branch hours as needed (headache) . ondansetron 2021-05 Yes [id number] 1-2 U nivers 4 mg tablet 2-15 tablets ity o f 00:00: every 8 [place] 00 hours as Medical needed for Branch nausea benzonatate 2021-05 Yes [id number] 200mg Take 1 Univers 200 mg 2-15 capsule by ity of capsule 00:00: mouth 3 [place] 00 (three) Medical times Branch daily as needed for Cough. albuterol 2021-05 Yes [id number] 2{puff} Inhale 2 Univers 90 2-15 Puffs ity of mcg/actuati 00:00: every 4 [place] on inhaler 00 (four) Medical hours as Branch needed for Wheezing or Shortness of Breath. butalbital- 2021-05 Yes [id number] 1{tbl} Take 1 Univers acetaminoph 2-15 tablet by ity of en-caff 00:00: mouth [place] 50-325-40 00 every 4 Medical mg tablet (four) Branch hours as needed (headache) . nirmatrelvi 2021-05- Yes [id number] 2{tbl} Take 2 Univers r-ritonavir 2-15 12-21 tablets by i ty of (PAXLOVID, 00:00: 05:59 mouth in [place] EUA,) 300 00 :00 the Medical mg (150 mg morning Branch x 2)-100 mg and 2 tablet tablets in the evening. Do all this for 5 days. nirmatrelvi 2021-05- Yes [id number] 2{tbl} Take 2 Univers r-ritonavir 2-15 12-21 tablets by i ty of (PAXLOVID, 00:00: 05:59 [place] EUA,) 300 00 :00 the Medical mg (150 mg morning Branch x 2)-100 mg and 2 tablet tablets in the evening. Do all this for 5 days. [facility] 2021-05- Yes [id number] 2{tbl} Take 2 Univers r-ritonavir 2-15 12-21 tablets by i ty of (PAXLOVID, 00:00: 05:59 mouth in [place] EUA,) 300 00 :00 the Medical mg (150 mg morning Branch x 2)-100 mg and 2 tablet tablets in the evening. Do all this for 5 days. ondansetron 2021-05- No 4mg 4 mg, [facility] (ZOFRAN-ODT 06-23 Oral, ity of ) 22:45: 21:53 ONCE, 1 [place] disintegrat 00 :00 dose, On Medi porfirio ing tablet [place] Branch 4 mg 04/22/22 at 1645, Routine amoxicillin 2021-05 Yes [id number] 1{tbl} Take 1 Univers -clavulanat 2- [id number] tablet by i ty of e 875-125 00:00: mouth [place] mg per 00 every 12 Medical tablet (twelve) Branch hours. ondansetron 2021-05 Yes [id number] 4mg Take 1 Univers 4 mg 2- [id number] tablet by ity of disintegrat 00:00: mouth [place] ing tablet 00 every 8 Medica l (eight) Branch hours as needed for Nausea and Vomiting (N/V). amoxicillin 2021-05 Yes [id number] 1{tbl} Take 1 Univers -clavulanat 2-01 [id number] tablet by i ty of e 875-125 00:00: mouth [place] mg per 00 every 12 Medical tablet (twelve) Branch hours. ondansetron 2021-05 Yes [id number] 4mg Take 1 Univers 4 mg 2-01 [id number] tablet by ity of disintegrat 00:00: mouth [place] ing tablet 00 every 8 Medica l (eight) Branch hours as needed for Nausea and Vomiting (N/V). amoxicillin 2021-05 Yes [id number] 1{tbl} Take 1 Univers -clavulanat 2-01 [id number] tablet by i ty of e 875-125 00:00: mouth [place] mg per 00 every 12 Medical tablet (twelve) Branch hours. ondansetron 2021-05 Yes [id number] 4mg Take 1 Univers 4 mg 2- [id number] tablet by ity of disintegrat 00:00: mouth [place] ing tablet 00 every 8 Medica l (eight) Branch hours as needed for Nausea and Vomiting (N/V). amoxicillin 2021-05 Yes [id number] 1{tbl} Take 1 Univers -clavulanat 2-01 [id number] tablet by i ty of e 875-125 00:00: mouth [place] mg per 00 every 12 Medical tablet (twelve) Branch hours. ondansetron 2021-05 Yes [id number] 4mg Take 1 Univers 4 mg 2- [id number] tablet by ity of disintegrat 00:00: mouth [place] ing tablet 00 every 8 Medica l (eight) Branch hours as needed for Nausea and Vomiting (N/V). amoxicillin 2021-05 Yes [id number] 1{tbl} Take 1 Univers -clavulanat 2-01 [id number] tablet by i ty of e 875-125 00:00: mouth [place] mg per 00 every 12 Medical tablet (twelve) Branch hours. ondansetron 2021-05 Yes [id number] 4mg Take 1 Univers 4 mg 2-01 [id number] tablet by ity of disintegrat 00:00: mouth [place] ing tablet 00 every 8 Medica l (eight) Branch hours as needed for Nausea and Vomiting (N/V). zoster 2021-05- Yes [id number] .5mL 0.5 mL by Univers vaccine, 0-14 10- 9104 Intramuscu ity of recombinant 00:00: 04:59 lar route [place] (SHINGRIX, 00 :00 once now Medic al PF,) for 1 Branch injection dose. And repeat in 2-6 months zoster 2021-05- No [id number] .5mL 0.5 mL by Univers vaccine, 0-05 03- 9104 Intramuscu ity of recombinant 00:00: 04:59 lar route [place] (SHINGRIX, 00 :00 once now Medic al PF,) for 1 Branch injection dose. And repeat in 2-6 months zoster 2021-05- No [id number] .5mL 0.5 mL by Univers vaccine, 0- [...] o f 1 mg tablet 19:28: at [place] [address] bedtime. Medical Branch traZODone Yes 50mg Take 50 mg Un matt 100 mg 9-27 by mouth ity of tablet 19:28: at [place] [address] bedtime. Medical Branch hydralAZINE Yes 25mg Take 25 mg [...] o f 1 mg tablet 19:28: at [place] [address] bedtime. Medical Branch traZODone 2-0 Yes 50mg Take 50 mg Un matt 100 mg 9-27 by mouth ity of tablet 19:28: at [place] [address] bedtime. Medical Branch hydralAZINE 2021-0 Yes 25mg [...] o f 1 mg tablet 19:28: at [place] [address] bedtime. Medical Branch traZODone 2022-0 Yes 50mg Take 50 mg Un matt 100 mg 9-27 by mouth ity of tablet 19:28: at [place] [address] bedtime. Medical Branch hydralAZINE 2022-0 Yes 25mg Take 25 mg Univers (APRESOLINE 9-27 by mouth ity of ) 25 mg 19:28: daily. [place] tablet 04 Medical Branch lisinopril 2022-0 Yes 40mg Take 40 mg U nivers (PRINIVIL,Z 9-27 by mouth 2 it y of ESTRIL) 40 19:28: (two) [place] mg tablet 04 times Medical daily. Branch metoprolol 2022-0 Yes 100mg Take 100 Un matt tartrate [...] o f 1 mg tablet 19:28: at [place] [address] bedtime. Medical Branch traZODone 2-0 Yes 50mg Take 50 mg Un matt 100 mg 9-27 by mouth ity of tablet 19:28: at [place] [address] bedtime. Medical Branch hydralAZINE 2-0 Yes 25mg Take 25 mg Univers (APRESOLINE 9-27 by mouth ity of ) 25 mg 19:28: daily. [place] tablet 04 Medical Branch lisinopril 2-0 Yes 40mg Take 40 mg U nivers (PRINIVIL,Z 9-27 by mouth 2 it y of ESTRIL) 40 19:28: (two) [place] mg tablet 04 times Medical daily. Branch metoprolol 2022-0 Yes 100mg Take 100 Un matt tartrate 9-27 mg by ity of (LOPRESSOR) 19:28: mouth 2 [place] as 100 mg 04 (two) Medical tablet times Branch daily. amLODIPine 2022-0 Yes 10mg Take 10 mg U nivers (NORVASC) 9-27 by mouth ity of 10 mg 19:28: daily. [place] tablet 04 Medical Branch clonazePAM 2022-0 Yes 1mg Take 1 mg Un matt (KLONOPIN) 9-27 by mouth ity o f 1 mg tablet 19:28: at [place] [address] bedtime. Medical Branch traZODone 2021-0 Yes 50mg Take 50 mg Un matt 100 mg 9-27 by mouth ity of tablet 19:28: at [place] [address] bedtime. Medical Branch hydralAZINE 2021-0 Yes 25mg [...] o f 1 mg tablet 19:28: at [place] [address] bedtime. Medical Branch traZODone 2021-0 Yes 50mg Take 50 mg Un matt 100 mg 9-27 by mouth ity of tablet 19:28: at [place] [address] bedtime. Medical Branch hydralAZINE 2021-0 Yes 25mg [...] o f 1 mg tablet 19:28: at [place] [address] bedtime. Medical Branch traZODone 2021-0 Yes 50mg Take 50 mg Un matt 100 mg 9-27 by mouth ity of tablet 19:28: at [place] [address] bedtime. Medical Branch hydralAZINE 2021-0 Yes 25mg [...] o f 1 mg tablet 19:28: at [place] [address] bedtime. Medical Branch traZODone 2021-0 Yes 50mg Take 50 mg Un matt 100 mg 9-27 by mouth ity of tablet 19:28: at [place] [address] bedtime. Medical Branch hydralAZINE 2021-0 Yes 25mg [...] o f 1 mg tablet 19:28: at [place] [address] bedtime. Medical Branch traZODone 2021-0 Yes 50mg Take 50 mg Un matt 100 mg 9-27 by mouth ity of tablet 19:28: at [place] [address] bedtime. Medical Branch hydralAZINE 2021-0 Yes 25mg [...] (two) Medical tablet times Branch daily. amLODIPine 0 Yes 10mg Take 10 mg U nivers (NORVASC) 9-27 by mouth ity of 10 mg 19:28: daily. [place] tablet 04 Medical Branch clonazePAM 0 Yes 1mg Take 1 mg Un matt (KLONOPIN) 9-27 by mouth ity o f 1 mg tablet 19:28: at [place] [address] bedtime. Medical Branch traZODone 2021-0 Yes 50mg Take 50 mg Un matt 100 mg 9-27 by mouth ity of tablet 19:28: at [place] [address] bedtime. Medical Branch hydralAZINE 2021-0 Yes 25mg [...] o f 1 mg tablet 19:28: at [place] [address] bedtime. Medical Branch traZODone 2021-0 Yes 50mg Take 50 mg Un matt 100 mg 9-27 by mouth ity of tablet 19:28: at [place] [address] bedtime. Medical Branch hydralAZINE 2021-0 Yes 25mg [...] 100 mg 04 (two) Medical tablet times [place] daily. amLODIPine 2021-0 Yes 10mg Take 10 mg U nivers (NORVASC) 9- by mouth ity of 10 mg 19:28: daily. [place] tablet 04 Medical Branch clonazePAM 2021-0 Yes 1mg Take 1 mg Un matt (KLONOPIN) 9- by mouth ity o f 1 mg tablet 19:28: at [place] [address] bedtime. Medical Branch traZODone 2021-0 Yes 50mg Take 50 mg Un matt 100 mg 9-27 by mouth ity of tablet 19:28: at [place] [address] bedtime. Medical Branch hydralAZINE 2021-0 Yes 25mg [...] 100 mg 04 (two) Medical tablet times [place] daily. amLODIPine Yes 10mg Take 10 mg U nivers (NORVASC) 9-27 by mouth ity of 10 mg 19:28: daily. [place] tablet 04 Medical Branch clonazePAM 0 Yes 1mg Take 1 mg Un matt (KLONOPIN) - by mouth ity o f 1 mg tablet 19:28: at [place] [address] bedtime. Medical Branch traZODone Yes 50mg Take 50 mg Un matt 100 mg - by mouth ity of tablet 19:28: at [place] [address] bedtime. Medical Branch cefpodoxime 2021- Yes [id number] 200mg Take 1 Univers 200 mg 02-16 tablet by ity of tablet 00:00: 04:59 mouth in [place] 00 :00 the Medical morning Branch and 1 tablet in the evening. Do all this for 3 days. cefpodoxime 2021- Yes [id number] 200mg Take 1 Univers 200 mg 02-16 tablet by ity of tablet 00:00: 04:59 mouth in [place] 00 :00 the [facility] morning Branch and 1 tablet in the evening. Do all this for 3 days. haloperidol 2021- No 2mg 2 mg, Slow Univers lactate 02-15 IV Push, ity of (HALDOL) 09:00: 09:12 ONCE, 1 [place] injection 2 00 :00 dose, On Medi porfirio mg Mon Branch 02/15/22 at 0400, Routine hydroCHLORO Yes 25mg 25 mg, Univ ers thiazide 9-25 Oral, ity of (ESIDRIX) 14:00: DAILY, [place] capsule 25 00 First dose Med ical mg on Sun Branch 02/14/22 at 0900, Until Discontinu ed, Routine butalbital- Yes 1{tbl} 1 tablet, Univers acetaminoph 9-24 Oral, ity of en-caff 18:46: Q6HPRN, [place] (ESGIC) 06 Starting Medical 50-325-40 on Sat Branch mg tablet 1 9/24/22 at tablet 1346, Until Discontinu ed, Routine, headaches dicyclomine Yes 10mg 10 mg, Univ ers (BENTYL) 02-13 Oral, QID, ity o f capsule 10 17:00: First dose [place] mg 00 on [facility] 02/13/22 at Branch 1200, Until Discontinu ed, Routine tiZANidine Yes 4mg 4 mg, Univer s (ZANAFLEX) 02-12 Oral, Q8H, ity of tablet 4 mg 19:00: First dose [place] 00 on Tue [facility] 02/12/22 at Branch 1400, Until Discontinu ed, Routine HYDROmorpho Yes 4mg 4 mg, Unive rs ne 02-12 Oral, ity of (DILAUDID) 17:37: Q6HPRN, [place] tablet 4 mg 07 Starting [facility] porfirio on Tue [place] 02/12/22 at 1237, Until Discontinu ed, Routine, Pain (scale 4-6) morpHINE (2 2021- No 2mg 2 mg, Slow Univers mg/mL) 02-12 IV Push, ity of injection 2 17:36: 20:36 Q6HPRN, [place] mg 46 :24 Starting Medical on Tue [place] 02/12/22 at 1236, Until 02/14/22 at 1536, Routine, Pain (scale 7-10) cefTRIAXone 0 2021- No 2000mg 2,000 mg, Univers (ROCEPHIN) [...] [place] mg 37 Starting Medical on [facility] Branch 02/11/22 at 1618, Until Discontinu ed, Routine, SBP > 170 nystatin-tr 202-0 Yes Topical, Un matt iamcinolone 02-11 TID, First it y of (MYCOLOG) 19:00: dose on [place] cream 00 [facility] Medical 02/11/22 at Branch 1400, Until Discontinu ed, Routine busPIRone 2021-0 Yes 30mg 30 mg, Univer s (BUSPAR) 02-11 Oral, BID, ity o f tablet 30 18:00: First dose [place] mg 00 on [facility] 02/11/22 at Branch 1300, Until Discontinu ed, Routine raltegravir 2021-0 Yes 400mg 400 mg, Un matt (ISENTRESS) 02-11 Oral, BID, it y of tablet 400 18:00: First dose [place] mg 00 on [facility] 02/11/22 at Branch 1300, Until Discontinu ed, JOE metoprolol 2021-0 Yes 100mg 100 mg, Uni vers tartrate 02-11 Oral, BID, ity o f (LOPRESSOR) 18:00: First dose [place] tablet 100 00 on [facility] Medical mg 02/11/22 at Branch 1300, Until Discontinu ed, Routine lisinopriL 2021-0 Yes 40mg 40 mg, Unive rs (PRINIVIL,Z 02-11 Oral, BID, it y of ESTRIL) 18:00: First dose [place] tablet 40 00 on [facility] mg 02/11/22 at Branch 1300, Until Discontinu ed, Routine emtricitabi 2021-0 Yes 1{tbl} 1 tablet, Univers ne-tenofovi 02-11 Oral, ity of r alafen 18:00: DAILY, [place] (DESCOVY) 00 First dose Medi porfirio tablet 1 on [facility] tablet 02/11/22 at 1300, Until Discontinu ed, Routine ipratropium 2021-0 Yes .5mg 0.5 mg, Uni vers (ATROVENT) 02-11 Inhalation ity of 0.02 % 17:57: , QIDPRN, [place] nebulizer 10 Starting Medica l solution on [facility] Branch 0.5 mg 02/11/22 at 1257, Until Discontinu ed, Routine, Wheezing, Shortness of Breath amLODIPine 2021-0 Yes 10mg 10 mg, Unive rs (NORVASC) 02-11 Oral, ity of tablet 10 17:30: DAILY, [place] mg 00 First dose Medical (after Branch last modificati on) on [facility] 02/11/22 at 1230, Until Discontinu ed, Routine hydrALAZINE No 25mg 25 mg, Uni vers (APRESOLINE 02-11 Oral, ity of ) tablet 25 17:30: 12:54 DAILY, [place] mg 00 :55 First dose Medical (after Branch last modificati on) on [facility] 02/11/22 at 1230, Until Discontinu ed, Routine HYDROcodone 2021- No 1{tbl} 1 tablet, Univers -acetaminop 02-11 Oral, ity of hen (NORCO 14:11: 17:37 Q6HPRN, [place] 5) 5-325 mg 03 :24 Starting Medi porfirio tablet 1 on [facility] Branch tablet 02/11/22 at 0911, Until Tue02/12/22 at 1237, Routine, Pain (scale 7-10) melatonin Yes 3mg 3 mg, Univers (MELATIN) 02-11 Oral, ity of tablet 3 mg 14:08: QHSPRN, [place] 17 Starting Medical on [facility] Branch 02/11/22 at 0908, Until Discontinu ed, Routine, Insomnia acetaminoph 2021- No 1{tbl} 1 tablet, Univers en-codeine 02-11 Oral, ity of (TYLENOL 14:06: 17:37 Q6HPRN, [place] #3) 300-30 19 :24 Starting Medic al mg tablet 1 on [facility] Branch tablet 02/11/22 at 0906, Until Tue02/12/22 at 1237, Routine, Pain (scale 4-6) sennosides- Yes 1{tbl} 1 tablet, Univers docusate 02-11 Oral, ity of sodium 14:06: QDAILYPRN, [place] (SENOKOT-S) 09 Starting Medi porfirio 8.6-50 mg on [facility] Branch per tablet 02/11/22 at 1 tablet 0906, Until Discontinu ed, Routine, Constipati on ondansetron 2022-0 Yes 4mg 4 mg, Slow Univers (ZOFRAN [...] ity of ) 25 mg 09:10: daily. [place] tablet 54 [facility] Branch amLODIPine 0 Yes 10mg Take 10 mg U nivers (NORVASC) 02-11 by mouth ity of 10 mg 09:10: daily. [place] tablet 54 [facility] Branch piperacilli 0 2021- No 3.375g 3.375 [...] uration of therapy: 72 hours iopamidol 2021-0 2022- No [id number] 60mL 60 mL, Univers (ISOVUE 02-11 Intravenou [...] 00 :00 dose, On Medic al mg [facility] [facility] 02/11/22 at 0015, JOE emtricitabi Yes [id number] Take one [facility] ne-tenofovi 9-12 po daily ity of r alafen 00:00: [place] (DESCOVY) 00 Medical tablet Branch emtricitabi Yes [id number] Take one [facility] ne-tenofovi 9-12 po daily ity of r alafen 00:00: [place] (DESCOVY) 00 Medical tablet Branch emtricitabi Yes [id number] Take one [facility] ne-tenofovi 9-12 po daily ity of r alafen 00:00: [place] (DESCOVY) 00 Medical tablet Branch emtricitabi 2022-0 Yes [id number] Take one [facility] ne-tenofovi 9-12 po daily ity of r alafen 00:00: [place] (DESCOVY) 00 Medical tablet Branch emtricitabi Yes [id number] Take one [facility] ne-tenofovi 9-12 po daily ity of r alafen 00:00: [place] (DESCOVY) 00 Medical tablet Branch emtricitabi Yes [id number] Take one [facility] ne-tenofovi 9-12 po daily ity of r alafen 00:00: [place] (DESCOVY) 00 Medical tablet Branch emtricitabi Yes [id number] Take one [facility] ne-tenofovi 9-12 po daily ity of r alafen 00:00: [place] (DESCOVY) 00 Medical tablet Branch emtricitabi Yes [id number] Take one [facility] ne-tenofovi 9-12 po daily ity of r alafen 00:00: [place] (DESCOVY) 00 Medical tablet Branch emtricitabi Yes [id number] Take one [facility] ne-tenofovi 9-12 po daily ity of r alafen 00:00: [place] (DESCOVY) 00 Medical tablet Branch emtricitabi Yes [id number] Take one [facility] ne-tenofovi 9-12 po daily ity of r alafen 00:00: [place] (DESCOVY) 00 Medical tablet Branch emtricitabi Yes [id number] Take one [facility] ne-tenofovi 9-12 po daily ity of r alafen 00:00: [place] (DESCOVY) 00 Medical tablet Branch emtricitabi Yes [id number] Take one [facility] ne-tenofovi 9-12 po daily ity of r alafen 00:00: [place] (DESCOVY) 00 Medical tablet Branch emtricitabi Yes [id number] Take one [facility] ne-tenofovi 9-12 po daily ity of r alafen 00:00: [place] (DESCOVY) 00 Medical tablet Branch emtricitabi Yes [id number] Take one [facility] ne-tenofovi 9-12 po daily ity of r alafen 00:00: [place] (DESCOVY) 00 Medical tablet Branch naproxen 2022-0 Yes [id number] 500mg Take 1 U nivers (NAPROSYN) 7-24 tablet by ity of 500 mg 00:00: mouth in [place] tablet 00 the [facility] morning Branch and 1 tablet in the evening. Take with meals. methocarbam 2022-0 Yes [id number] 500mg Take 1 Univers oL 500 mg 7-24 tablet by ity o f tablet 00:00: mouth 4 [place] ([facility] daily. naproxen 2-0 Yes [id number] 500mg Take 1 U nivers (NAPROSYN) 7-24 tablet by ity of 500 mg 00:00: mouth in [place] tablet 00 the [facility] morning Branch and 1 tablet in the evening. Take with meals. methocarbam 2-0 Yes [id number] 500mg Take 1 Univers oL 500 mg 7-24 tablet by ity o f tablet 00:00: mouth 4 [place] 00 ([facility] daily. naproxen 2-0 Yes [id number] 500mg Take 1 U nivers (NAPROSYN) 7-24 tablet by ity of 500 mg 00:00: mouth in [place] tablet 00 the [facility] morning [place] and 1 tablet in the evening. Take with meals. methocarbam 2-0 Yes [id number] 500mg Take 1 [facility] oL 500 mg 7-24 tablet by ity o f tablet 00:00: mouth 4 [place] ([facility] daily. naproxen 2021-0 2- No [id number] 500mg Take 1 [facility] (NAPROSYN) 7-24 10-14 tablet by ity of 500 mg 00:00: 00:00 mouth in [place] tablet 00 :00 the [facility] morning Branch and 1 tablet in the evening. Take with meals. methocarbam 2-0 2022- No [id number] 500mg Take 1 [facility] oL 500 mg 7-24 10-14 tablet by ity of tablet 00:00: 00:00 mouth 4 [place] 00 :00 ([facility]) [facility] daily. naproxen 2-0 2022- No [id number] 500mg Take 1 [facility] (NAPROSYN) 7-24 10-14 tablet by ity of 500 mg 00:00: 00:00 mouth in [place] tablet 00 :00 the [facility] morning Branch and 1 tablet in the evening. Take with meals. methocarbam 2021- No [id number] 500mg Take 1 [facility] oL 500 mg 12-13 tablet by ity of tablet 00:00: 00:00 mouth 4 [place] 00 :00 (four) Medical times Branch daily. esomeprazol 2021- [...] ty of mg tablet 09:11: 00:00 (two) [place] 35 :00 times Medical daily. Branch traZODONE No Take by [facility] ers (DESYREL) 11-20 mouth at ity o f 10 mg/mL 09:10: 00:00 [place]time. [place] oral 28 :00 Medical suspension Branch hydralAZINE Yes 25mg Take 25 mg Univers (APRESOLINE 11-20 by mouth ity of ) 25 mg 08:47: daily. [place] tablet 47 Medical Branch cephALEXin 2021- No [id number] 500mg Take 1 [facility] (KEFLEX) 10-24 capsule [...] 7-10). Indication s: acute pain buPROPion Yes [id number] 150mg Take 1 U nivers XL 4-12 tablet by ity of (WELLBUTRIN 00:00: mouth [place] XL) 150 mg 00 daily. Medical 24 hr Branch tablet busPIRone 2021-0 Yes [id number] 30mg Take 1 Un matt 30 mg 4-12 tablet by ity of tablet 00:00: mouth 2 [place] 00 (two) Medical times Branch daily. SERTraline 2021-0 Yes [id number] 200mg Take 2 [facility] 100 mg 4-12 tablets by ity of tablet 00:00: mouth [place] 00 daily. Medical Branch buPROPion 2021-0 Yes [id number] 150mg Take 1 U nivers XL 4-12 tablet by ity of (WELLBUTRIN 00:00: mouth [place] XL) 150 mg 00 daily. Medical 24 hr Branch tablet busPIRone 2021-0 Yes [id number] 30mg Take 1 Un matt 30 mg 4-12 tablet by ity of tablet 00:00: mouth 2 [place] 00 (two) Medical times Branch daily. SERTraline 2021-0 Yes [id number] 200mg Take 2 [facility] 100 mg 4-12 tablets by ity of tablet 00:00: mouth [place] 00 daily. Medical Branch buPROPion 2021-0 Yes [id number] 150mg Take 1 U nivers XL 4-12 tablet by ity of (WELLBUTRIN 00:00: mouth [place] XL) 150 mg 00 daily. Medical 24 hr Branch tablet busPIRone 2021-0 Yes [id number] 30mg Take 1 Un matt 30 mg 4-12 tablet by ity of tablet 00:00: mouth 2 [place] 00 (two) Medical times Branch daily. SERTraline 2021-0 Yes [id number] 200mg Take 2 [facility] 100 mg 4-12 tablets by ity of tablet 00:00: mouth [place] 00 daily. Medical Branch buPROPion 2021-0 Yes [id number] 150mg Take 1 U nivers XL 4-12 tablet by ity of (WELLBUTRIN 00:00: mouth [place] XL) 150 mg 00 daily. Medical 24 hr Branch tablet busPIRone 2021-0 Yes [id number] 30mg Take 1 Un matt 30 mg 4-12 tablet by ity of tablet 00:00: mouth 2 [place] 00 (two) Medical times Branch daily. SERTraline 2021-0 Yes [id number] 200mg Take 2 [facility] 100 mg 4-12 tablets by ity of tablet 00:00: mouth [place] 00 daily. Medical Branch buPROPion 2021-0 Yes [id number] 150mg Take 1 U nivers XL 4-12 tablet by ity of (WELLBUTRIN 00:00: mouth [place] XL) 150 mg 00 daily. Medical 24 hr Branch tablet busPIRone 2021-0 Yes [id number] 30mg Take 1 Un matt 30 mg 4-12 tablet by ity of tablet 00:00: mouth 2 00 (two) Medical times Branch daily. SERTraline 2021-0 Yes [id number] 200mg Take 2 [facility] 100 mg 4-12 tablets by ity of tablet 00:00: mouth [place] 00 daily. Medical Branch buPROPion 2021-0 Yes [id number] 150mg Take 1 U nivers XL 4-12 tablet by ity of (WELLBUTRIN 00:00: mouth [place] XL) 150 mg 00 daily. Medical 24 hr Branch tablet busPIRone 2021-0 Yes [id number] 30mg Take 1 Un matt 30 mg 4-12 tablet by ity of tablet 00:00: mouth 2 (two) Medical times Branch daily. SERTraline 2021-0 Yes [id number] 200mg Take 2 [facility] 100 mg 4-12 tablets by ity of tablet 00:00: mouth [place] 00 daily. Medical Branch buPROPion 2021-0 Yes [id number] 150mg Take 1 U nivers XL 4-12 tablet by ity of (WELLBUTRIN 00:00: mouth [place] XL) 150 mg 00 daily. Medical 24 hr Branch tablet busPIRone 2021-0 Yes [id number] 30mg Take 1 Un matt 30 mg 4-12 tablet by ity of tablet 00:00: mouth 2 (two) Medical times Branch daily. SERTraline 2021-0 Yes [id number] 200mg Take 2 [facility] 100 mg 4-12 tablets by ity of tablet 00:00: mouth [place] 00 daily. Medical Branch buPROPion 2021-0 Yes [id number] 150mg Take 1 U nivers XL 4-12 tablet by ity of (WELLBUTRIN 00:00: mouth [place] XL) 150 mg 00 daily. Medical 24 hr Branch tablet busPIRone 2021-0 Yes [id number] 30mg Take 1 Un matt 30 mg 4-12 tablet by ity of tablet 00:00: mouth 2 [place] 00 (two) Medical times Branch daily. SERTraline 2021-0 Yes [id number] 200mg Take 2 [facility] 100 mg 4-12 tablets by ity of tablet 00:00: mouth [place] 00 daily. Medical Branch buPROPion 2021-0 Yes [id number] 150mg Take 1 U nivers XL 4-12 tablet by ity of (WELLBUTRIN 00:00: mouth [place] XL) 150 mg 00 daily. Medical 24 hr Branch tablet busPIRone 2021-0 Yes [id number] 30mg Take 1 Un matt 30 mg 4-12 tablet by ity of tablet 00:00: mouth 2 [place] 00 (two) Medical times Branch daily. SERTraline 0 Yes [id number] 200mg Take 2 [facility] 100 mg 4-12 tablets by ity of tablet 00:00: mouth [place] 00 daily. Medical Branch buPROPion 0 Yes [id number] 150mg Take 1 U nivers XL 4-12 tablet by ity of (WELLBUTRIN 00:00: mouth [place] XL) 150 mg 00 daily. Medical 24 hr Branch tablet busPIRone 2021-0 Yes [id number] 30mg Take 1 Un matt 30 mg 4-12 tablet by ity of tablet 00:00: mouth 2 [place] 00 (two) Medical times Branch daily. SERTraline 2021-0 Yes [id number] 200mg Take 2 [facility] 100 mg 4-12 tablets by ity of tablet 00:00: mouth [place] 00 daily. Medical Branch buPROPion 2021-0 Yes [id number] 150mg Take 1 U nivers XL 4-12 tablet by ity of (WELLBUTRIN 00:00: mouth [place] XL) 150 mg 00 daily. Medical 24 hr Branch tablet busPIRone 2021-0 Yes [id number] 30mg Take 1 Un matt 30 mg 4-12 tablet by ity of tablet 00:00: mouth 2 [place] 00 (two) Medical times Branch daily. SERTraline 2021-0 Yes [id number] 200mg Take 2 [facility] 100 mg 4-12 tablets by ity of tablet 00:00: mouth [place] 00 daily. Medical Branch buPROPion 2021-0 Yes [id number] 150mg Take 1 U nivers XL 4-12 tablet by ity of (WELLBUTRIN 00:00: mouth [place] XL) 150 mg 00 daily. Medical 24 hr Branch tablet busPIRone 0 Yes [id number] 30mg Take 1 Un matt 30 mg 4-12 tablet by ity of tablet 00:00: mouth 2 [place] 00 (two) Medical times Branch daily. SERTraline 0 Yes [id number] 200mg Take 2 [facility] 100 mg 4-12 tablets by ity of tablet 00:00: mouth [place] 00 daily. Medical Branch buPROPion 0 Yes [id number] 150mg Take 1 U nivers XL 4-12 tablet by ity of (WELLBUTRIN 00:00: mouth [place] XL) 150 mg 00 daily. Medical 24 hr Branch tablet busPIRone 0 Yes [id number] 30mg Take 1 Un matt 30 mg 4-12 tablet by ity of tablet 00:00: mouth 2 [place] 00 (two) Medical times Branch daily. SERTraline Yes [id number] 200mg Take 2 [facility] 100 mg 4-12 tablets by ity of tablet 00:00: mouth [place] 00 daily. Medical Branch buPROPion 0 Yes [id number] 150mg Take 1 U nivers XL 4-12 tablet by ity of (WELLBUTRIN 00:00: mouth [place] XL) 150 mg 00 daily. Medical 24 hr Branch tablet busPIRone 0 Yes [id number] 30mg Take 1 Un matt 30 mg 4-12 tablet by ity of tablet 00:00: mouth 2 [place] 00 (two) Medical times Branch daily. SERTraline 0 Yes [id number] 200mg Take 2 [facility] 100 mg 4-12 tablets by ity of tablet 00:00: mouth [place] 00 daily. Medical Branch buPROPion 0 Yes [id number] 150mg Take 1 U nivers XL 4-12 tablet by ity of (WELLBUTRIN 00:00: mouth [place] XL) 150 mg 00 daily. Medical 24 hr Branch tablet busPIRone 2021-0 Yes [id number] 30mg Take 1 Un matt 30 mg 4-12 tablet by ity of tablet 00:00: mouth 2 [place] 00 (two) Medical times Branch daily. SERTraline 0 Yes [id number] 200mg Take 2 [facility] 100 mg 4-12 tablets by ity of tablet 00:00: mouth [place] 00 daily. Medical Branch raltegravir 0 Yes [id number] 400mg Take 1 Univers (ISENTRESS) 3-28 tablet by ity of 400 mg 00:00: mouth 2 [place] tablet 00 (two) Medical times Branch daily. raltegravir 2-0 Yes [id number] 400mg Take 1 Univers (ISENTRESS) 3-28 tablet by ity of 400 mg 00:00: mouth 2 [place] tablet 00 (two) Medical times Branch daily. raltegravir 2-0 Yes [id number] 400mg Take 1 Univers (ISENTRESS) 3-28 tablet by ity of 400 mg 00:00: mouth 2 [place] tablet 00 (two) Medical times Branch daily. raltegravir 2-0 Yes [id number] 400mg Take 1 Univers (ISENTRESS) 3-28 tablet by ity of 400 mg 00:00: mouth 2 [place] tablet 00 (two) Medical times Branch daily. raltegravir 2-0 Yes [id number] 400mg Take 1 Univers (ISENTRESS) 3-28 tablet by ity of 400 mg 00:00: mouth 2 [place] tablet 00 (two) Medical times Branch daily. raltegravir 2021-0 Yes [id number] 400mg Take 1 Univers (ISENTRESS) 3-28 tablet by ity of 400 mg 00:00: mouth 2 [place] tablet 00 (two) Medical times Branch daily. raltegravir 2-0 Yes [id number] 400mg Take 1 Univers (ISENTRESS) 3-28 tablet by ity of 400 mg 00:00: mouth 2 [place] tablet 00 (two) Medical times Branch daily. raltegravir 2-0 Yes [id number] 400mg Take 1 Univers (ISENTRESS) 3-28 tablet by ity of 400 mg 00:00: mouth 2 [place] tablet 00 (two) Medical times Branch daily. raltegravir 2022-0 Yes [id number] 400mg Take 1 Univers (ISENTRESS) 3-28 tablet by ity of 400 mg 00:00: mouth 2 [place] tablet 00 (two) Medical times Branch daily. raltegravir 2022-0 Yes [id number] 400mg Take 1 Univers (ISENTRESS) 3-28 tablet by ity of 400 mg 00:00: mouth 2 [place] tablet 00 (two) Medical times Branch daily. raltegravir 2022-0 Yes [id number] 400mg Take 1 Univers (ISENTRESS) 3-28 tablet by ity of 400 mg 00:00: mouth 2 [place] tablet 00 (two) Medical times Branch daily. raltegravir 0 Yes [id number] 400mg Take 1 Univers (ISENTRESS) 3-28 tablet by ity of 400 mg 00:00: mouth 2 [place] tablet 00 (two) Medical times Branch daily. raltegravir 0 Yes [id number] 400mg Take 1 Univers (ISENTRESS) 3-28 tablet by ity of 400 mg 00:00: mouth 2 [place] tablet 00 (two) Medical times Branch daily. raltegravir Yes [id number] 400mg Take 1 Univers (ISENTRESS) 3-28 tablet by ity of 400 mg 00:00: mouth 2 [place] tablet 00 (two) Medical times Branch daily. raltegravir 0 Yes [id number] 400mg Take 1 [facility] (ISENTRESS) 3-28 tablet by ity of 400 mg 00:00: mouth 2 [place] tablet 00 (two) Medical times Branch daily. LORazepam 1 2021- No [id number] 1mg Take 1 Univers mg tablet 3-11-20 tablet by ity of 00:00: 00:00 mouth [...] times a tablet day. emtricitabi 2021- No [id number] Take one [facility] ne-tenofovi 1-20 09-12 po daily ity of r alafen 00:00: 00:00 [place] (DESCOVY) 00 :00 Medical tablet Branch metoprolol 0 Yes [id number] Take 1 [facility] tartrate 7-26 tablet Health (Lopressor) 00:00: (100 mg 100 MG 00 total) by tablet mouth 2 (two) times a day AND 0.5 tablets (50 mg total) every night. metoprolol Yes [id number] Take 1 [place] tartrate 7-26 tablet Health [...] (affected area in groin) hydrALAZINE Yes 50mg Q.[id number] Take 50 mg [facility] (APRESOLINE 7-19 [id number] mouth [facility] ) 50 MG [...] area in groin) hydrALAZINE 0 Yes 50mg Q.[id number] Take 50 mg [facility] (APRESOLINE 7-19 [id number] [facility] mouth [facility] ) 50 MG [...] (affected area in groin) hydrALAZINE Yes 50mg Q.[id number] Take 50 mg [facility] (APRESOLINE 7-19 [id number] [facility] mouth [facility] ) 50 MG [...] (affected area in groin) hydrALAZINE Yes 50mg Q.[id number] Take 50 mg [facility] (APRESOLINE 7-19 [id number] by mouth 3 [facility] ) 50 MG [...] area in groin) hydrALAZINE 0 Yes 50mg Q.[id number] Take 50 mg [facility] (APRESOLINE 7-19 [id number] [facility] mouth 3 [facility] ) 50 MG [...] (affected area in groin) hydrALAZINE Yes 50mg Q.[id number] Take 50 mg [facility] (APRESOLINE 7-19 [id number] by mouth [facility] ) 50 MG [...] (affected area in groin) hydrALAZINE Yes 50mg Q.[id number] Take 50 mg [facility] (APRESOLINE 7-19 [id number] [address] mouth [facility] [address] ) 50 MG [...] (affected area in groin) hydrALAZINE Yes 50mg Q.[id number] Take 50 mg [facility] (APRESOLINE 7-19 [id number] [address] mouth [facility] ) 50 MG [...] area in groin) hydrALAZINE 2020-0 Yes 50mg Q.[id number] Take 50 mg [facility] (APRESOLINE 7-19 [id number] [address] mouth [facility] ) 50 MG [...] (affected area in groin) hydrALAZINE Yes 50mg Q.[id number] Take 50 mg [facility] (APRESOLINE 7-19 [id number] [address] mouth [facility] ) 50 MG [...] (affected area in groin) hydrALAZINE Yes 50mg Q.[id number] Take 50 mg [facility] (APRESOLINE 7-19 [id number] [facility] mouth [facility] ) 50 MG [...] area in groin) hydrALAZINE 0 Yes 50mg Q.[id number] Take 50 mg [facility] (APRESOLINE 7-19 [id number] mouth [facility] [address] ) 50 MG [...] (affected area in groin) hydrALAZINE Yes 50mg Q.[id number] Take 50 mg [facility] (APRESOLINE 7-19 [id number] [address] mouth [facility] ) 50 MG [...] (affected area in groin) hydrALAZINE Yes 50mg Q.[id number] Take 50 mg [facility] (APRESOLINE 7-19 [id number] by mouth [facility] ) 50 MG [...] area in groin) hydrALAZINE 0 Yes 50mg Q.[id number] Take 50 mg [facility] (APRESOLINE 7-19 [id number] [address] mouth [facility] ) 50 MG [...] area in groin) hydrALAZINE 0 Yes 50mg Q.[id number] Take 50 mg [facility] (APRESOLINE 7-19 [id number] [address] mouth [facility] [address] ) 50 MG [...] (affected area in groin) hydrALAZINE Yes 50mg Q.[id number] Take 50 mg [facility] (APRESOLINE 7-19 [id number] [address] mouth [facility] ) 50 MG [...] area in groin) hydrALAZINE 0 Yes 50mg Q.[id number] Take 50 mg [facility] (APRESOLINE 7-19 [id number] [facility] mouth [facility] ) 50 MG [...] area in groin) hydrALAZINE 2020-0 Yes 50mg Q.[id number] Take 50 mg [facility] (APRESOLINE 7-19 [id number] mouth [facility] [address] ) 50 MG [...] (affected area in groin) hydrALAZINE Yes 50mg Q.[id number] Take 50 mg [facility] (APRESOLINE 7-19 [id number] by mouth [facility] ) 50 MG [...] area in groin) hydrALAZINE 0 Yes 50mg Q.[id number] Take 50 mg [facility] (APRESOLINE 7-[id number] mouth [address] ) 50 MG [...] area in groin) hydrALAZINE 2020-0 Yes 50mg Q.[id number] Take 50 mg [facility] (APRESOLINE 7-19 [id number] mouth [facility] ) 50 MG [...] (shortness w/sensor of breath or wheezing). buPROPion 2020-0 Yes 150mg QD Take 150 Met hodi [...] (affected area in groin) hydrALAZINE Yes 50mg Q.[id number] Take 50 mg [facility] (APRESOLINE 7-[id number] mouth [address] ) 50 MG [...] (affected area in groin) hydrALAZINE Yes 50mg Q.[id number] Take 50 mg [facility] (APRESOLINE 7-19 [id number] [address] mouth [facility] ) 50 MG [...] area in groin) hydrALAZINE 0 Yes 50mg Q.[id number] Take 50 mg [facility] (APRESOLINE 7-19 [id number] mouth [facility] [address] ) 50 MG [...] (affected area in groin) hydrALAZINE Yes 50mg Q.[id number] Take 50 mg [facility] (APRESOLINE 7-19 [id number] [address] mouth [facility] [address] ) 50 MG [...] area in groin) hydrALAZINE 0 Yes 50mg Q.[id number] Take 50 mg [facility] (APRESOLINE 7-19 [id number] mouth [facility] ) 50 MG [...] [facility] tablet 25 l nystatin-tr 2020-0 Yes [id number] Apply to [facility] iainolone 7-06 area(s) 3 ity of cream 00:00: (three) [place] 00 times Medical daily. Branch nystatin-tr 2020-0 Yes [id number] Apply to [facility] iainolone 7-06 area(s) 3 ity of cream 00:00: (three) [place] 00 times Medical daily. Branch nystatin-tr 2021-0 Yes [id number] Apply to [facility] iainolone 7-06 area(s) 3 ity of cream 00:00: (three) [place] 00 times Medical daily. Branch nystatin-tr 2021-0 Yes [id number] Apply to [facility] iainolone 7-06 area(s) 3 ity of cream 00:00: (three) [place] 00 times Medical daily. Branch nystatin-tr 2021-0 Yes [id number] Apply to [facility] iainolone 7-06 area(s) 3 ity of cream 00:00: (three) [place] 00 times Medical daily. Branch nystatin-tr 2021-0 Yes [id number] Apply to [facility] iamcinolone 7-06 area(s) 3 ity of cream 00:00: (three) [place] 00 times Medical daily. Branch nystatin-tr 2021-0 Yes [id number] Apply to [facility] iamcinolone 7-06 area(s) 3 ity of cream 00:00: (three) [place] 00 times Medical daily. Branch nystatin-tr 2021-0 Yes [id number] Apply to [facility] iamcinolone 7-06 area(s) 3 ity of cream 00:00: (three) [place] 00 times Medical daily. Branch nystatin-tr 2021-0 Yes [id number] Apply to [facility] iamcinolone 7-06 area(s) 3 ity of cream 00:00: (three) [place] 00 times Medical daily. Branch nystatin-tr 2021-0 Yes [id number] Apply to [facility] iamcinolone 7-06 area(s) 3 ity of cream 00:00: (three) [place] 00 times Medical daily. Branch nystatin-tr 2021-0 Yes [id number] Apply to [facility] iamcinolone 7-06 area(s) 3 ity of cream 00:00: (three) [place] 00 times Medical daily. Branch nystatin-tr 2021-0 Yes [id number] Apply to [facility] iamcinolone 7-06 area(s) 3 ity of cream 00:00: (three) [place] 00 times Medical daily. Branch nystatin-tr 2021-0 Yes [id number] Apply to [facility] iamcinolone 7-06 area(s) 3 ity of cream 00:00: (three) [place] 00 times Medical daily. Branch nystatin-tr 2021-0 Yes [id number] Apply to [facility] iamcinolone 7-06 area(s) 3 ity of cream 00:00: (three) [place] 00 times Medical daily. Branch nystatin-tr 2021-0 Yes [id number] Apply to [facility] iamcinolone 7-06 area(s) 3 ity of cream 00:00: (three) [place] 00 times Medical daily. Branch budesonide- 2020-0 2021- No 1{puff} QD Inhale 1 [facility] formoteroL 6-25 06-[address] (SYMBICORT) 14:37: 00:00 morning. H ospita 160-4.5 02 :00 l mcg/actuati on inhaler hydrALAZINE 0 Yes [id number] 50mg Q.[id number] Take 1 [facility] (Apresoline 6-11 [id number] tablet (50 Health ) 50 MG 00:00: 3D mg total) tablet 00 by mouth 3 (three) times a day. hydrALAZINE 0 Yes [id number] 50mg Q.[id number] Take 1 [facility] (Apresoline 6-11 [id number] tablet (50 Health ) 50 MG 00:00: [...] 00:00: ointment 00 nystatin 2020-0 2021- No [id number] Q.25D Take 5 mL [facility] (MYCOSTATIN 5-17 [...] ia 4-10 (Same as: l 14:00: Zoloft) [place] 00 pantoprazol No Notes: Caesar lisa e 4-10 Tablet l 14:00: should not [place] 00 be chewed or crushed. (Same as: Protonix) Amiodarone No Notes: Memor ia 4-10 (Same as: l 14:00: Cordarone) [place] Amlodipine No Notes: Memor ia 4-10 (Same as: l 14:00: Norvasc) [place] emtricitabi No Notes: Caesar lisa ne 200 MG / 4-10 (Same as: l tenofovir 14:00: Descovy) Herm ariel alafenamide 00 Non-formul 25 MG Oral nancy Tablet [Descovy] Sertraline No Notes: Memor ia 4-10 (Same as: l 14:00: Zoloft) [place] 00 pantoprazol No Notes: [place] lisa e 4-10 Tablet l 14:00: should not [place] 00 be chewed or crushed. (Same as: Protonix) Amiodarone No Notes: Memor ia 4-10 (Same as: l 14:00: Cordarone) [place] 00 Amlodipine No Notes: Memor ia 4-10 (Same as: l 14:00: Norvasc) [place] 00 emtricitabi No Notes: Caesar lisa ne 200 MG / 4-10 (Same as: l tenofovir 14:00: Descovy) Herm ariel alafenamide 00 Non-formul 25 MG Oral nancy Tablet [Descovy] Sertraline No Notes: Memor ia 4-10 (Same as: l 14:00: Zoloft) [place] 00 pantoprazol No Notes: Caesar lisa e 4-10 Tablet l 14:00: should not [place] 00 be chewed or crushed. (Same as: Protonix) Amiodarone No Notes: Memor ia 4-10 (Same as: l 14:00: Cordarone) [place] 00 Amlodipine No Notes: Memor ia 4-10 [...] M emoria 4-10 interfere l 02:00: w/enteral [place] feeds - Take 1 hr before or [...] M emoria 4-10 interfere l 02:00: w/enteral [place] 00 feeds - Take 1 hr before or 2 hr after antacids, dairy pdt, meals & minerals - On empty stomach. For patients unable to swallow tablet, dissolve in 10mL - 30mL of water or juice and stir before giving. (Same As: Carafate) Saline No Notes: Memoria Flush 0.9% 4-10 (Same as: l 02:00: BD [place] Posiflush) Eliquis No Notes: Memoria 4-10 Same as: l 02:00: Eliquis [place] 00 Hydralazine No Notes: Caesar lisa Hydrochlori 4-10 (Same as: l de 50 MG 02:00: Apresoline Her mitchell Oral Tablet 00 ) May interfere w/enteral feedings Take With Food Sucralfate No Notes: May M emoria 4-10 interfere l 02:00: w/enteral [place] 00 feeds - Take 1 hr before [...] 0.9% 4-10 (Same as: l 02:00: BD [place] 00 Posiflush) Eliquis No Notes: Memoria 4-10 [...] M emoria 4-10 interfere l 02:00: w/enteral [place] 00 feeds - Take 1 hr before or 2 hr after antacids, dairy pdt, meals & minerals - On empty stomach. For patients unable to swallow tablet, dissolve in 10mL - 30mL of water or juice and stir before giving. (Same As: Carafate) Saline No Notes: Memoria Flush 0.9% 4-10 (Same as: l 02:00: BD [place] Posiflush) Eliquis No Notes: Memoria 4-10 Same as: l 02:00: Eliquis [place] 00 Hydralazine No Notes: Caesar lisa Hydrochlori 4-10 (Same as: l de 50 MG 02:00: Apresoline Her [place] Oral Tablet 00 ) May interfere w/enteral feedings Take With Food Sucralfate No Notes: May M emoria 4-10 interfere l 02:00: w/enteral [place] 00 feeds - Take 1 hr before [...] not exceed l #3 00:12: 4gm/day of [place] acetaminop hen. (Same as: Tylenol with Codeine # 3) acetaminoph No Notes: Do M emoria en-codeine 4-10 not exceed l #3 00:12: 4gm/day of [place] acetaminop hen. (Same as: Tylenol with Codeine # 3) acetaminoph No Notes: Do M emoria en-codeine 4-10 not exceed l #3 00:12: 4gm/day of [place] acetaminop hen. (Same as: Tylenol with Codeine # 3) acetaminoph 2021-0 No Notes: Do M emoria en-codeine 4-10 [...] not exceed l #3 00:12: 4gm/day of [place] acetaminop hen. (Same as: Tylenol with Codeine # 3) acetaminoph No Notes: Do M emoria en-codeine 4-10 not exceed l #3 00:12: 4gm/day of [place] acetaminop hen. (Same as: Tylenol with Codeine # 3) Buspirone No Notes: Memori a - (Same As: l 22:00: BuSpar) Lisinopril No 40 mg, 1 Mem oria 4- tab, l 22:00: Route: PO, [place] Drug form: TAB, BID, Dosing Weight 97.273, kg, Start date: 08/29/20 17:00:00 CDT, Duration: 30 day, Stop date: 09/28/20 9:00:00 CDT metoprolol No 100 mg, 1 Me moria tartrate - tab, l 22:00: Route: PO, [place] Drug form: TAB, BID, Dosing Weight 97.273, kg, Start date: 08/29/20 17:00:00 CDT, Duration: 30 day, Stop date: 09/28/20 9:00:00 CDT Raltegravir No 400 mg, 1 M emoria 400 MG Oral 4- tab, l Tablet 22:00: Route: PO, Skylar [facility] Drug form: TAB, BID, Dosing Weight [...] l Tablet 22:00: Route: PO, Skylar nn [[facility] 00 Drug form: TAB, BID, Dosing Weight [...] tartrate -09 tab, l 22:00: Route: PO, [place] Drug form: TAB, BID, Dosing Weight 97.273, [...] tartrate 4-09 tab, l 22:00: Route: PO, [place] 00 Drug form: TAB, BID, Dosing Weight [...] tartrate 4-09 tab, l 22:00: Route: PO, [place] Drug form: TAB, BID, Dosing Weight 97.273, [...] tartrate 4-09 tab, l 22:00: Route: PO, [place] Drug form: TAB, BID, Dosing Weight 97.273, [...] tartrate 4- tab, l 22:00: Route: PO, [place] Drug form: TAB, BID, Dosing Weight 97.273, [...] Notes: Memoria 4-09 (Same l 17:07: as:MORPhin [place] 00 e Sulfate) Morphine No Notes: Memoria 4-09 (Same l 17:07: as:MORPhin Marty 00 e Sulfate) Morphine No Notes: Memoria 4-09 (Same l 17:07: as:MORPhin [place] 00 e Sulfate) Morphine No Notes: Memoria 4-09 (Same l 17:07: as:MORPhin [place] 00 e Sulfate) Morphine No Notes: Memoria 4-09 (Same l 17:07: as:MORPhin Marty 00 e Sulfate) Morphine No Notes: Memoria 4-09 (Same l 17:07: as:MORPhin [place] 00 e Sulfate) Morphine No Notes: Memoria [...] 150 mg, 1 Mem oria 24 hour 4 tab, l extended 16:00: Route: PO, Her [...] ONCE, Stop date: 08/29/20 10:40:00 CDT pantoprazol 1-0 Yes 40 mg = 1 M emoria e 40 mg 4-09 tab, PO, l oral 15:27: Daily, # [place] enteric 00 30 tab, 0 coated Refill(s), tablet Pharmacy: [facility] 149, 162.56, cm, 08/29/20 5:30:00 CDT, Height, 97.273, kg, 08/29/20 5:30:00 CDT, Weight pantoprazol 1-0 Yes 40 mg = 1 M emoria e 40 mg 4-09 tab, PO, l oral 15:27: Daily, # Marty enteric 00 30 tab, 0 coated Refill(s), tablet Pharmacy: [facility] 149, 162.56, cm, 08/29/20 5:30:00 CDT, Height, 97.273, kg, 08/29/20 5:30:00 CDT, Weight pantoprazol 1-0 Yes 40 mg = 1 M emoria e 40 mg 4-09 tab, PO, l oral 15:27: Daily, # [place] enteric 00 30 tab, 0 coated Refill(s), tablet Pharmacy: [facility] 149, 162.56, cm, 08/29/20 5:30:00 CDT, Height, 97.273, kg, 08/29/20 5:30:00 CDT, Weight pantoprazol 1-0 Yes 40 mg = 1 M emoria e 40 mg 4-09 tab, PO, l oral 15:27: Daily, # [place] enteric 00 30 tab, 0 coated Refill(s), tablet Pharmacy: [facility] 149, 162.56, cm, 08/29/20 5:30:00 CDT, Height, 97.273, kg, 08/29/20 5:30:00 CDT, Weight pantoprazol 1-0 Yes 40 mg = 1 M emoria e 40 mg 4-09 tab, PO, l oral 15:27: Daily, # Marty enteric 00 30 tab, 0 coated Refill(s), tablet Pharmacy: [facility] 149, 162.56, cm, 08/29/20 5:30:00 CDT, Height, 97.273, kg, 08/29/20 5:30:00 CDT, Weight pantoprazol 2020-0 Yes 40 mg = 1 M emoria e 40 mg 4-09 tab, PO, l oral 15:27: Daily, # Marty enteric 00 30 tab, 0 coated Refill(s), tablet Pharmacy: [facility] 149, 162.56, cm, 08/29/20 5:30:00 CDT, Height, 97.273, kg, 08/29/20 5:30:00 CDT, Weight pantoprazol 2020-0 Yes 40 mg = 1 M emoria e 40 mg 4-09 tab, PO, l oral 15:27: Daily, # [place] enteric 00 30 tab, 0 coated Refill(s), tablet Pharmacy: [facility] 149, 162.56, cm, 08/29/20 5:30:00 CDT, Height, 97.273, kg, 08/29/20 5:30:00 CDT, Weight pantoprazol 2020-0 No 40 mg = 1 M emoria e 40 mg 4-09 tab, PO, l oral 15:26: Daily, # [place] enteric 00 30 tab, 0 coated Refill(s) tablet sucralfate 2020-0 Yes 1 gm = 1 Mem oria 1 g oral 4-09 tab, PO, l tablet 15:26: Q12H, # 28 Skylar nn 00 tab, 0 Refill(s), Pharmacy: [facility] 149, 162.56, cm, 08/29/20 [...] Skylar nn 00 tab, 0 Refill(s), Pharmacy: [facility] 149, 162.56, cm, 08/29/20 [...] Skylar nn 00 tab, 0 Refill(s), Pharmacy: [place] [address], 162.56, cm, 08/29/20 5:30:00 CDT, Height, 97.273, kg, 08/29/20 5:30:00 CDT, Weight pantoprazol 2020-0 No 40 mg = 1 M emoria e 40 mg 4-09 tab, PO, l oral 15:26: Daily, # [place] enteric 00 30 tab, 0 coated Refill(s) tablet sucralfate 2020-0 Yes 1 gm = 1 Mem oria 1 g oral 4-09 tab, PO, l tablet 15:26: Q12H, # 28 Skylar nn 00 tab, 0 Refill(s), Pharmacy: [place] [address], 162.56, cm, 08/29/20 5:30:00 CDT, Height, 97.273, kg, 08/29/20 5:30:00 CDT, Weight pantoprazol 2020-0 No 40 mg = 1 M emoria e 40 mg 4-09 tab, PO, l oral 15:26: Daily, # [place] enteric 00 30 tab, 0 coated Refill(s) tablet sucralfate 2020-0 Yes 1 gm = 1 Mem oria 1 g oral 4-09 tab, PO, l tablet 15:26: Q12H, # 28 Skylar nn 00 tab, 0 Refill(s), Pharmacy: [place] [address], 162.56, cm, 08/29/20 5:30:00 CDT, Height, 97.273, kg, 08/29/20 5:30:00 CDT, Weight pantoprazol No 40 mg = 1 M emoria e 40 mg 4-09 tab, PO, l oral 15:26: Daily, # [place] enteric 00 30 tab, 0 coated Refill(s) tablet sucralfate Yes 1 gm = 1 Mem oria 1 g oral 4-09 tab, PO, l tablet 15:26: Q12H, # 28 Skylar nn 00 tab, 0 Refill(s), Pharmacy: [facility] 149, 162.56, cm, 08/29/20 5:30:00 CDT, Height, 97.273, kg, 08/29/20 5:30:00 CDT, Weight pantoprazol No 40 mg = 1 M emoria e 40 mg 4-09 tab, PO, l oral 15:26: Daily, # [place] enteric 00 30 tab, 0 coated Refill(s) tablet sucralfate Yes 1 gm = 1 Mem oria 1 g oral 4-09 tab, PO, l tablet 15:26: Q12H, # 28 Skylar nn 00 tab, 0 Refill(s), Pharmacy: [facility] 149, 162.56, cm, 08/29/20 5:30:00 CDT, Height, 97.273, kg, 08/29/20 5:30:00 CDT, Weight Saline No Notes: Memoria Flush 0.9% 4-09 (Same as: l 15:25: BD [place] Posiflush) Lorazepam No Notes: Memori a 4-09 (Same as: l 15:25: Ativan) [place] Saline No Notes: Memoria Flush 0.9% 4-09 (Same as: l 15:25: BD Marty 00 Posiflush) Lorazepam No Notes: Memori a 4-09 (Same as: l 15:25: Ativan) Marty Saline No Notes: Memoria Flush 0.9% 4-09 (Same as: l 15:25: BD Marty 00 Posiflush) Saline No Notes: Memoria Flush 0.9% 4-09 (Same as: l 15:25: BD [place] Posiflush) Lorazepam No Notes: Memori a 4-09 (Same as: l 15:25: Ativan) Marty 00 Lorazepam No Notes: Memori a 4-09 (Same as: l 15:25: Ativan) [place] 00 Saline No Notes: Memoria Flush 0.9% 4-09 (Same as: l 15:25: BD [place] Posiflush) Lorazepam No Notes: Memori a 4-09 (Same as: l 15:25: Ativan) Saline No Notes: Memoria Flush 0.9% 4-09 (Same as: l 15:25: BD Marty 00 Posiflush) Lorazepam No Notes: Memori a 4-09 (Same as: l 15:25: Ativan) Saline No Notes: Memoria Flush 0.9% 4-09 (Same as: l 15:25: BD [place] Posiflush) Lorazepam No Notes: Memori a 4-09 [...] Drug form: l mg + 15:00: INJ, [place] 00 Dosing Weight 97.3, kg, Start date: 08/29/20 10:00:00 CDT, Stop date: 08/29/20 11:00:00 CDT Isuprel HCl 2020-0 No Route: IV, Memoria (ANES) 0.2 08-29 Drug form: l mg + 15:00: INJ, [place] 00 Dosing Weight 97.3, kg, Start date: [...] Memori a 08-29 Route: l 14:01: IVP, [place] 00 Q5Min, Dosing Weight 97.273, kg, PRN [...] oria ne 08-29 Route: l 14:01: IVP, [place] 00 Q5Min, Dosing Weight 97.273, kg, PRN Pain Score 7-10, Start date: 08/29/20 9:01:00 CDT, Duration: 4 doses or times, Stop date: Limited # of times Flumazenil 2020-0 No 0.2 mg, Caesar lisa 08-29 Route: l 14:01: IVP, PRN, [place] Dosing Weight 97.273, kg, PRN Benzodiaze pine Reversal, Initial dose, Start date: 08/29/20 9:01:00 CDT, Duration: 30 day, Stop date: 09/28/20 9:00:00 CDT Naloxone 1-0 No 0.4 mg, Memori a 08-29 Route: l 14:01: IVP, [place] 00 Q2MIN, Dosing Weight 97.273, kg, PRN Narcotic Reversal, Start date: 08/29/20 9:01:00 CDT, Duration: 8 doses or times, Stop date: Limited # of times Ondansetron 1-0 No 4 mg, Memor ia 08-29 Route: l 14:01: IVP, ONCE, [place] 00 Dosing Weight 97.273, kg, PRN Nausea & Vomiting, Start date: 08/29/20 9:01:00 CDT Labetalol 1-0 No 10 mg, Memori a 08-29 Route: l 14:01: IVP, [place] 00 Q5Min, Dosing Weight 97.273, kg, PRN [...] oria ne 08-29 Route: l 14:01: IVP, [place] 00 Q5Min, Dosing Weight 97.273, kg, PRN [...] Memori a 08-29 Route: l 14:01: IVP, [place] 00 Q2MIN, Dosing Weight 97.273, kg, PRN Narcotic Reversal, Start date: 08/29/20 9:01:00 CDT, Duration: 8 doses or times, Stop date: Limited # of times Ondansetron 2021-0 No 4 mg, Memor ia 08-29 Route: l 14:01: IVP, ONCE, [place] 00 Dosing Weight 97.273, kg, PRN Nausea [...] 08-29 Route: PO, l 14:01: Drug form: [place] 00 TAB, ONCE, Dosing Weight 97.273, kg, [...] oria ne 08-29 Route: l 14:01: IVP, [place] 00 Q5Min, Dosing Weight 97.273, kg, PRN [...] Memori a 08-29 Route: l 14:01: IVP, [place] 00 Q2MIN, Dosing Weight 97.273, kg, PRN [...] Memori a 08-29 Route: l 14:01: IVP, [place] 00 Q5Min, Dosing Weight 97.273, kg, PRN Elevated BP, Start date: 08/29/20 9:01:00 CDT, Duration: 5 doses or times, Stop date: Limited # of times Acetaminoph 2021-0 No 1,000 mg, M emoria en 08-29 Route: PO, l 14:01: Drug form: [place] 00 TAB, ONCE, Dosing Weight 97.273, kg, [...] Memori a 08-29 Route: l 14:01: IVP, [place] 00 Q5Min, Dosing Weight 97.273, kg, PRN [...] oria ne 08-29 Route: l 14:01: IVP, [place] 00 Q5Min, Dosing Weight 97.273, kg, PRN [...] lisa 08-29 Route: l 14:01: IVP, PRN, [place] 00 Dosing Weight 97.273, kg, PRN Benzodiaze [...] Memori a 08-29 Route: l 14:01: IVP, [place] 00 Q2MIN, Dosing Weight 97.273, kg, PRN Narcotic Reversal, Start date: 08/29/20 9:01:00 CDT, Duration: 8 doses or times, Stop date: Limited # of times Ondansetron 2021-0 No 4 mg, Memor ia 08-29 Route: l 14:01: IVP, ONCE, [place] 00 Dosing Weight 97.273, kg, PRN Nausea [...] Memori a 08-29 Route: l 14:01: IVP, [place] 00 Q2MIN, Dosing Weight 97.273, kg, PRN [...] 08-29 Drug form: l 13:42: INJ, ONCE, Bradford 00 Stop date: 08/29/20 8:42:00 CDT fentaNYL 2020-0 No Route: IV, Mem oria (ANES) 08-29 Drug form: l 13:42: INJ, ONCE, Marty 00 Stop date: 08/29/20 8:42:00 CDT norepinephr 0 No Route: IV, Memoria ine (ANES) 08-29 Drug form: l 10 13:15: INJ, Start Bradford microgram date: 08/29/20 8:15:00 CDT, Stop date: 08/29/20 9:15:00 CDT norepinephr 0 No Route: IV, Memoria ine (ANES) 08-29 Drug form: l 10 13:15: INJ, Start [place] microgram date: 08/29/20 8:15:00 CDT, Stop date: 08/29/20 9:15:00 CDT norepinephr 0 No Route: IV, Memoria ine (ANES) 08-29 Drug form: l 10 13:15: INJ, Start Bradford microgram date: 08/29/20 8:15:00 CDT, Stop date: [...] Drug form: l 10 13:15: INJ, Start Bradford microgram 00 date: 08/29/20 8:15:00 CDT, Stop date: 08/29/20 9:15:00 CDT norepinephr 2020-0 No Route: IV, Memoria ine (ANES) 4-09 Drug form: l 10 13:15: INJ, Start [place] microgram 00 date: 08/29/20 8:15:00 CDT, Stop date: 08/29/20 9:15:00 CDT Sodium 2021-0 No Route: IV, Memor ia Chloride 4-09 Total l 0.9% IV 12:30: Volume: Marty (ANES) 1000 00 1,000, mL Start date: 08/29/20 7:30:00 CDT, Stop date: 08/29/20 8:30:00 CDT Sodium 2021-0 No Route: IV, Memor ia Chloride 4-09 Total l 0.9% IV 12:30: Volume: [place] (ANES) 1000 00 1,000, mL Start date: 08/29/20 7:30:00 CDT, Stop date: 08/29/20 8:30:00 CDT Sodium 202-0 No Route: IV, Memor ia Chloride 4-09 Total l 0.9% IV 12:30: Volume: [place] (ANES) 1000 00 1,000, mL Start date: [...] PO, l Hydrochlori 11:42: Q24H, # 30 Bradford de 150 MG 00 tab, 0 Extended [...] PO, l Hydrochlori 11:42: Q24H, # 30 Bradford de 150 MG 00 tab, 0 Extended [...] 4- Q12H, tab, l Tablet 11:41: 0 [place] [Eliquis] 00 Refill(s), For Atrial Fibrilatio n apixaban 2020-0 Yes 5 mg, PO, Me moria MG Oral 08-29 Q12H, tab, l Tablet 11:41: 0 [place] [Eliquis] 00 Refill(s), For Atrial Fibrilatio n apixaban 5 2020-0 Yes 5 mg, PO, Me moria MG Oral 08-29 Q12H, tab, l Tablet 11:41: 0 [place] [Eliquis] 00 Refill(s), For Atrial Fibrilatio n [...] tab, PO, l tablet 11:38: Daily, # [place] 00 90 tab, 3 Refill(s) AMIODarone 0 Yes 200 mg = 1 M emoria 200 mg oral -09 tab, PO, l tablet 11:38: Daily, # Marty 00 90 tab, 3 Refill(s) AMIODarone 2020-0 Yes 200 mg = 1 M emoria 200 mg oral -09 tab, PO, l tablet 11:38: Daily, # [place] 00 90 tab, 3 Refill(s) AMIODarone 2020-0 Yes 200 mg = 1 M emoria 200 mg oral -09 tab, PO, l tablet 11:38: Daily, # [place] 00 90 tab, 3 Refill(s) AMIODarone 2020-0 [...] tab, PO, l tablet 11:38: Daily, # [place] 00 90 tab, 3 Refill(s) normal 0 [...] 37.5-25 MG capsule Emtricitabi 2018-05 Yes [place] ne-Tenofovi 1-21 200 mg-25 [facility] AF 00:00: mg tablet (Descovy) 00 200-25 MG tablet Emtricitabi 2018-05 Yes [place] ne-Tenofovi 1-21 200 mg-25 [facility] [...] [facility] ([facility] Yes 400mg Q.5D Take 400 Met hodi 400 mg 3-[address] tablet 00:00: mouth 2 Hospita 00 (two) l times a day. Immunizations Ordered Filled Immunization Date Status Comments [facility] e Immunization Name Name SARS-COV-2 COVID-19 [...] [place] 65[place] PFIZER COVID-19 2020-07-23 Completed [facility] VACCINATION 00:00:00 [facility] PFIZER COVID-19 2020-07-23 Completed [facility] VACCINATION 00:00:00 [facility] PFIZER COVID-19 2020-07-23 Completed [facility] VACCINATION 00:00:00 [facility] PFIZER COVID-19 2020-07-23 Completed [facility] VACCINATION 00:00:00 [facility] PFIZER COVID-19 2020-07-23 Completed [facility] VACCINATION 00:00:00 [facility] PFIZER COVID-19 2020-07-23 Completed [facility] VACCINATION 00:00:00 [facility] PFIZER COVID-19 2020-07-23 Completed [facility] VACCINATION 00:00:00 [facility] PFIZER COVID-19 2020-07-23 Completed [facility] VACCINATION 00:00:00 [facility] PFIZER COVID-19 2020-07-23 Completed [facility] VACCINATION 00:00:00 [facility] PFIZER COVID-19 2020-07-23 Completed [facility] VACCINATION 00:00:00 [facility] PFIZER COVID-19 2020-07-23 Completed [facility] VACCINATION 00:00:00 [facility] PFIZER COVID-19 2020-07-23 Completed [facility] VACCINATION 00:00:00 [facility] PEG COVID-19 2020-07-23 Completed [facility] VACCINATION 00:00:00 [facility] PEG COVID-19 2020-07-23 Completed [facility] VACCINATION 00:00:00 [facility] PEG COVID-19 2020-07-23 Completed [facility] VACCINATION 00:00:00 [facility] PEG COVID-19 2020-07-23 Completed [facility] VACCINATION 00:00:00 [facility] PEG COVID-19 2020-07-23 Completed [facility] VACCINATION 00:00:00 [facility] PEG COVID-19 2020-07-23 Completed [facility] VACCINATION 00:00:00 [facility] PEG COVID-19 2020-07-23 Completed [facility] VACCINATION 00:00:00 [facility] PFIZER COVID-19 2020-07-23 Completed [facility] VACCINATION 00:00:00 [facility] PFIZER COVID-19 2020-07-23 Completed [facility] VACCINATION 00:00:00 [facility] PFIZER COVID-19 2020-07-23 Completed [facility] VACCINATION 00:00:00 [facility] PFIZER COVID-19 2020-07-23 Completed [facility] VACCINATION 00:00:00 [facility] PFIZER COVID-19 2020-07-23 Completed [facility] VACCINATION 00:00:00 [facility] PFIZER COVID-19 2020-07-23 Completed [facility] VACCINATION 00:00:00 [facility] PFIZER COVID-19 2020-07-23 Completed [facility] VACCINATION 00:00:00 [facility] PFIZER COVID-19 2020-07-23 Completed [facility] VACCINATION 00:00:00 [facility] SARS-COV-2 COVID-19 2020-07-23 Completed [facility] PFIZER VACCINE 00:00:00 [facility] SARS-COV-2 COVID-19 2020-07-23 Completed [facility] of PFIZER VACCINE 00:00:00 [facility] SARS-COV-2 COVID-19 2020-07-23 Completed [facility] of PFIZER VACCINE 00:00:00 [facility] SARS-COV-2 COVID-19 2020-07-23 Completed [facility] of PFIZER VACCINE 00:00:00 [facility] SARS-COV-2 COVID-19 2020-07-23 Completed [facility] of PFIZER VACCINE 00:00:00 [facility] SARS-COV-2 COVID-19 2020-07-23 Completed [facility] of PFIZER VACCINE 00:00:00 [facility] SARS-COV-2 COVID-19 2020-07-23 Completed [facility] of PFIZER VACCINE 00:00:00 [facility] SARS-COV-2 COVID-19 2020-07-23 Completed [facility] of PFIZER VACCINE 00:00:00 [facility] SARS-COV-2 COVID-19 2020-07-23 Completed [facility] of PFIZER VACCINE 00:00:00 [facility] SARS-COV-2 COVID-19 2020-07-23 Completed [facility] of PFIZER VACCINE 00:00:00 [facility] SARS-COV-2 COVID-19 2020-07-23 Completed [facility] of PFIZER VACCINE 00:00:00 [facility] PFIZER COVID-19 2020-07-02 Completed [facility] VACCINATION 00:00:00 [facility] PFIZER COVID-19 2020-07-02 Completed [facility] VACCINATION 00:00:00 [facility] PFIZER COVID-19 2020-07-02 Completed [facility] VACCINATION 00:00:00 [facility] PFIZER COVID-19 2020-07-02 Completed [facility] VACCINATION 00:00:00 [facility] PFIZER COVID-19 2020-07-02 Completed [facility] VACCINATION 00:00:00 [facility] PFIZER COVID-19 2020-07-02 Completed [facility] VACCINATION 00:00:00 [facility] PFIZER COVID-19 2020-07-02 Completed [facility] VACCINATION 00:00:00 [facility] PFIZER COVID-19 2020-07-02 Completed [facility] VACCINATION 00:00:00 [facility] PFIZER COVID-19 2020-07-02 Completed [facility] VACCINATION 00:00:00 [facility] PFIZER COVID-19 2020-07-02 Completed [facility] VACCINATION 00:00:00 [facility] PFIZER COVID-19 2020-07-02 Completed [facility]ACC[facility] 00:00:00 [facility] PFIZER COVID-19 2020-07-02 Completed [facility] VACCINATION 00:00:00 [facility] PFIZER COVID-19 2020-07-02 Completed [facility] VACCINATION 00:00:00 [facility] PFIZER COVID-19 2020-07-02 Completed [facility] VACCINATION 00:00:00 [facility] PFIZER COVID-19 2020-07-02 Completed [facility] VACCINATION 00:00:00 [facility] PFIZER COVID-19 2020-07-02 Completed [facility] VACCINATION 00:00:00 [facility] PFIZER COVID-19 2020-07-02 Completed [facility] VACCINATION 00:00:00 [facility] PFIZER COVID-19 2020-07-02 Completed [facility] VACCINATION 00:00:00 [facility] PFIZER COVID-19 2020-07-02 Completed [facility] VACCINATION 00:00:00 [facility] PFIZER COVID-19 2020-07-02 Completed [facility] VACCINATION 00:00:00 [facility] PFIZER COVID-19 2020-07-02 Completed [facility] VACCINATION 00:00:00 [facility] PFIZER COVID-19 2020-07-02 Completed [facility] VACCINATION 00:00:00 [facility] PFIZER COVID-19 2020-07-02 Completed [facility] VACCINATION 00:00:00 [facility] PFIZER COVID-19 2020-07-02 Completed [facility] VACCINATION 00:00:00 [facility] PFIZER COVID-19 2020-07-02 Completed [facility] VACCINATION 00:00:00 [facility] PFIZER COVID-19 2020-07-02 Completed [facility] VACCINATION 00:00:00 [facility] PFIZER COVID-19 2020-07-02 Completed [facility] VACCINATION 00:00:00 [facility] SARS-COV-2 COVID-19 2020-07-02 Completed [facility] PFIZER VACCINE 00:00:00 [facility] SARS-COV-2 COVID-19 2020-07-02 Completed [facility] of PFIZER VACCINE 00:00:00 [facility] SARS-COV-2 COVID-19 2020-07-02 Completed [facility] of PFIZER VACCINE 00:00:00 [facility] SARS-COV-2 COVID-19 2020-07-02 Completed [facility] of PFIZER VACCINE 00:00:00 [facility] SARS-COV-2 COVID-19 2020-07-02 Completed [facility] of PFIZER VACCINE 00:00:00 [facility] SARS-COV-2 COVID-19 2020-07-02 Completed [facility] of PFIZER VACCINE 00:00:00 [facility] SARS-COV-2 COVID-19 2020-07-02 Completed [facility] of PFIZER VACCINE 00:00:00 [facility] SARS-COV-2 COVID-19 2020-07-02 Completed [facility] of PFIZER VACCINE 00:00:00 [facility] SARS-COV-2 COVID-19 2020-07-02 Completed [facility] of PFIZER VACCINE 00:00:00 [facility] SARS-COV-2 COVID-19 2020-07-02 Completed [facility] of PFIZER VACCINE 00:00:00 [facility] SARS-COV-2 COVID-19 2020-07-02 Completed [facility] of PFIZER VACCINE 00:00:00 [facility] Influenza Virus 2017-03-08 Completed [facility] Vaccine 00:00:00 [facility] Influenza Virus 2017-03-08 Completed [facility] Vaccine 00:00:00 [facility] Influenza Virus 2017-03-08 Completed [facility] Vaccine 00:00:00 [facility] Influenza Virus 2017-03-08 Completed [facility] Vaccine 00:00:00 [facility] Influenza Virus 2017-03-08 Completed [facility] Vaccine 00:00:00 [facility] Influenza Virus 2017-03-08 Completed [facility] Vaccine 00:00:00 [facility] Influenza Virus 2017-03-08 Completed [facility] Vaccine 00:00:00 [facility] Influenza Virus 2017-03-08 Completed [facility] Vaccine 00:00:00 [facility] Influenza Virus 2017-03-08 Completed [facility] Vaccine 00:00:00 [facility] Influenza Virus 2017-03-08 Completed [facility] Vaccine 00:00:00 [facility] Influenza Virus 2017-03-08 Completed [facility] Vaccine 00:00:00 [facility] Influenza Virus 2017-03-08 Completed [facility] Vaccine 00:00:00 [facility] Influenza Virus 2017-03-08 Completed [facility] Vaccine 00:00:00 [facility] Influenza Virus 2017-03-08 Completed [facility] Vaccine 00:00:00 [facility] Influenza Virus 2017-03-08 Completed [facility] Vaccine 00:00:00 [facility] Influenza Virus 2014-01-30 Completed [facility] Vaccine (3+ yrs) 00:00:00 [facility] Pneumococcal 13 2014-01-30 Completed [facility] of Conjugate, PCV13 00:00:00 [facility] dical (Prevnar 13) Branch Influenza Virus 2014-01-30 Completed [facility] Vaccine (3+ yrs) 00:00:00 [facility] Pneumococcal 13 2014-01-30 Completed [facility] of Conjugate, PCV13 00:00:00 [facility] dical (Prevnar 13) Branch Influenza Virus 2014-01-30 Completed [facility] Vaccine (3+ yrs) 00:00:00 [facility] dical Branch Pneumococcal 13 2014-01-30 Completed [facility] of Conjugate, PCV13 00:00:00 [facility] dical (Prevnar 13) Branch Influenza Virus 2014-01-30 Completed [facility]it [facility] of Vaccine (3+ yrs) 00:00:00 [facility] dical Branch Pneumococcal 13 2014-01-30 Completed [facility]it y of Conjugate, PCV13 00:00:00 [facility] dical (Prevnar 13) Branch Influenza Virus 2014-01-30 Completed [facility]it y of Vaccine (3+ yrs) 00:00:00 [facility] dical Branch Pneumococcal 13 2014-01-30 Completed [facility]it y of Conjugate, PCV13 00:00:00 [facility] dical (Prevnar 13) Branch Influenza Virus 2014-01-30 Completed [facility]it y of Vaccine (3+ yrs) 00:00:00 [facility] dical Branch Pneumococcal 13 2014-01-30 Completed [facility]it y of Conjugate, PCV13 00:00:00 [facility] dical (Prevnar 13) Branch Influenza Virus 2014-01-30 Completed [facility]it y of Vaccine (3+ yrs) 00:00:00 [facility] dical Branch Pneumococcal 13 2014-01-30 Completed [facility]it y of Conjugate, PCV13 00:00:00 [place] [facility] (Prevnar 13) Branch Influenza Virus 2014-01-30 Completed [facility] of Vaccine (3+ yrs) 00:00:00 [place] [facility] Pneumococcal 13 2014-01-30 Completed [facility] y of Conjugate, PCV13 00:00:00 [place] [facility] (Prevnar 13) Branch Influenza Virus 2014-01-30 Completed [facility] of Vaccine (3+ yrs) 00:00:00 [place] [facility] Pneumococcal 13 2014-01-30 Completed [facility] y of Conjugate, PCV13 00:00:00 [place] [facility] (Prevnar 13) Branch Influenza Virus 2014-01-30 Completed [facility] of Vaccine (3+ yrs) 00:00:00 [place] [facility] Pneumococcal 13 2014-01-30 Completed [facility] y of Conjugate, PCV13 00:00:00 [facility] dical (Prevnar 13) Branch Influenza Virus 2014-01-30 Completed Universit y of Vaccine (3+ yrs) 00:00:00 [place] [facility] Pneumococcal 13 2014-01-30 Completed Universit y of Conjugate, PCV13 00:00:00 [place] [facility] (Prevnar 13) Branch Influenza Virus 2014-01-30 Completed Universit y of Vaccine (3+ yrs) 00:00:00 [place] [facility] Pneumococcal 13 2014-01-30 Completed Universit y of Conjugate, PCV13 00:00:00 [facility] dical (Prevnar 13) Branch Influenza Virus 2014-01-30 Completed Universit y of Vaccine (3+ yrs) 00:00:00 [facility] dical Branch Pneumococcal 13 2014-01-30 Completed Universit y of Conjugate, PCV13 00:00:00 [place] [facility] (Prevnar 13) Branch Influenza Virus 2014-01-30 Completed Universit y of Vaccine (3+ yrs) 00:00:00 [place] [facility] Pneumococcal 13 2014-01-30 Completed Universit y of Conjugate, PCV13 00:00:00 [place] [facility] (Prevnar 13) Branch Influenza Virus 2014-01-30 Completed Universit y of Vaccine (3+ yrs) 00:00:00 [facility] dical Branch Pneumococcal 13 2014-01-30 Completed Universit y of Conjugate, PCV13 00:00:00 [facility] dical (Prevnar 13) Branch Pneumococcal 2012-02-16 Completed University o f Polysaccharide, 00:00:00 [place] [facility] PPSV23 (PNEUMOVAX) Branch Influenza Virus 2012-02-16 Completed Universit y of Vaccine 00:00:00 [facility] PPD (TB) 2012-02-16 Completed University of 00:00:00 [facility] Pneumococcal 2012-02-16 Completed University o f Polysaccharide, 00:00:00 [place] [facility] PPSV23 (PNEUMOVAX) Branch Influenza Virus 2012-02-16 Completed Universit y of Vaccine 00:00:00 [facility] PPD (TB) 2012-02-16 Completed University of 00:00:00 [facility] Pneumococcal 2012-02-16 Completed University o f Polysaccharide, 00:00:00 [place] [facility] PPSV23 (PNEUMOVAX) Branch Influenza Virus 2012-02-16 Completed Universit y of Vaccine 00:00:00 [facility] PPD (TB) 2012-02-16 Completed University of 00:00:00 [facility] Pneumococcal 2012-02-16 Completed University o f Polysaccharide, 00:00:00 [place] [facility] PPSV23 (PNEUMOVAX) Branch Influenza Virus 2012-02-16 Completed Universit y of Vaccine 00:00:00 [facility] PPD (TB) 2012-02-16 Completed University of 00:00:00 [facility] Pneumococcal 2012-02-16 Completed University o f Polysaccharide, 00:00:00 [place] [facility] PPSV23 (PNEUMOVAX) Branch Influenza Virus 2012-02-16 Completed Universit y of Vaccine 00:00:00 [facility] PPD (TB) 2012-02-16 Completed University of 00:00:00 [facility] Pneumococcal 2012-02-16 Completed University o f Polysaccharide, 00:00:00 [place] [facility] PPSV23 (PNEUMOVAX) Branch Influenza Virus 2012-02-16 Completed Universit y of Vaccine 00:00:00 [facility] PPD (TB) 2012-02-16 Completed University of 00:00:00 [facility] Pneumococcal 2012-02-16 Completed University o f Polysaccharide, 00:00:00 [place] [facility] PPSV23 (PNEUMOVAX) Branch Influenza Virus 2012-02-16 Completed Universit y of Vaccine 00:00:00 [facility] PPD (TB) 2012-02-16 Completed University of 00:00:00 [facility] Pneumococcal 2012-02-16 Completed University o f Polysaccharide, 00:00:00 [place] [facility] PPSV23 (PNEUMOVAX) Branch Influenza Virus 2012-02-16 Completed Universit y of Vaccine 00:00:00 [facility] PPD (TB) 2012-02-16 Completed University of 00:00:00 [facility] Pneumococcal 2012-02-16 Completed University o f Polysaccharide, 00:00:00 [place] [facility] PPSV23 (PNEUMOVAX) Branch Influenza Virus 2012-02-16 Completed Universit y of Vaccine 00:00:00 [facility] PPD (TB) 2012-02-16 Completed University of 00:00:00 [facility] Pneumococcal 2012-02-16 Completed University o f Polysaccharide, 00:00:00 [place] [facility] PPSV23 (PNEUMOVAX) Branch Influenza Virus 2012-02-16 Completed Universit y of Vaccine 00:00:00 [facility] PPD (TB) 2012-02-16 Completed University of 00:00:00 [facility] Pneumococcal 2012-02-16 Completed University o f Polysaccharide, 00:00:00 [place] [facility] PPSV23 (PNEUMOVAX) Branch Influenza Virus 2012-02-16 Completed Universit y of Vaccine 00:00:00 [facility] PPD (TB) 2012-02-16 Completed University of 00:00:00 [facility] Pneumococcal 2012-02-16 Completed University o f Polysaccharide, 00:00:00 [place] [facility] PPSV23 (PNEUMOVAX) Branch Influenza Virus 2012-02-16 Completed Universit y of Vaccine 00:00:00 [facility] PPD (TB) 2012-02-16 Completed University of 00:00:00 [facility] Pneumococcal 2012-02-16 Completed University o f Polysaccharide, 00:00:00 [place] [facility] PPSV23 (PNEUMOVAX) Branch Influenza Virus 2012-02-16 Completed Universit y of Vaccine 00:00:00 [facility] PPD (TB) 2012-02-16 Completed University of 00:00:00 [facility] Pneumococcal 2012-02-16 Completed University o f Polysaccharide, 00:00:00 [place] [facility] PPSV23 (PNEUMOVAX) Branch Influenza Virus 2012-02-16 Completed Universit y of Vaccine 00:00:00 [facility] PPD (TB) 2012-02-16 Completed University of 00:00:00 [facility] Pneumococcal 2012-02-16 Completed University o f Polysaccharide, 00:00:00 [facility] PPSV23 (PNEUMOVAX) Branch Influenza Virus 2012-02-16 Completed [facility] y of Vaccine 00:00:00 [facility] PPD (TB) 2012-02-16 Completed University of 00:00:00 [facility] Hep B, Adol or Pedi 2011-09-01 Completed Unive rsity of Dosage 00:00:00 [facility] Hep B, Adol or Pedi 2011-09-01 Completed Unive rsity of Dosage 00:00:00 [facility] Hep B, Adol or Pedi 2011-09-01 Completed Unive rsity of Dosage 00:00:00 [facility] Hep B, Adol or Pedi 2011-09-01 Completed Unive rsity of Dosage 00:00:00 [facility] Hep B, Adol or Pedi 2011-09-01 Completed Unive rsity of Dosage 00:00:00 [facility] Hep B, Adol or Pedi 2011-09-01 Completed Unive rsity of Dosage 00:00:00 [facility] Hep B, Adol or Pedi 2011-09-01 Completed Unive rsity of Dosage 00:00:00 [facility] Hep B, Adol or Pedi 2011-09-01 Completed Unive rsity of Dosage 00:00:00 [facility] Hep B, Adol or Pedi 2011-09-01 Completed Unive rsity of Dosage 00:00:00 [facility] Hep B, Adol or Pedi 2011-09-01 Completed Unive rsity of Dosage 00:00:00 [facility] Hep B, Adol or Pedi 2011-09-01 Completed Unive rsity of Dosage 00:00:00 [facility] Hep B, Adol or Pedi 2011-09-01 Completed Unive rsity of Dosage 00:00:00 [facility] Hep B, Adol or Pedi 2011-09-01 Completed Unive rsity of Dosage 00:00:00 [facility] Hep B, Adol or Pedi 2011-09-01 Completed Unive rsity of Dosage 00:00:00 [facility] Hep B, Adol or Pedi 2011-09-01 Completed Unive rsity of Dosage 00:00:00 [facility] Hep B, Adol or Pedi 2011-03-17 Completed Unive rsity of Dosage 00:00:00 [facility] Hep B, Adol or Pedi 2011-03-17 Completed Unive rsity of Dosage 00:00:00 [facility] Hep B, Adol or Pedi 2011-03-17 Completed Unive rsity of Dosage 00:00:00 [facility] Hep B, Adol or Pedi 2011-03-17 Completed Unive rsity of Dosage 00:00:00 [facility] Hep B, Adol or Pedi 2011-03-17 Completed Unive rsity of Dosage 00:00:00 [facility] Hep B, Adol or Pedi 2011-03-17 Completed Unive rsity of Dosage 00:00:00 [facility] Hep B, Adol or Pedi 2011-03-17 Completed Unive rsity of Dosage 00:00:00 [facility] Hep B, Adol or Pedi 2011-03-17 Completed Unive rsity of Dosage 00:00:00 [facility] Hep B, Adol or Pedi 2011-03-17 Completed Unive rsity of Dosage 00:00:00 [facility] Hep B, Adol or Pedi 2011-03-17 Completed Unive rsity of Dosage 00:00:00 [facility] Hep B, Adol or Pedi 2011-03-17 Completed Unive rsity of Dosage 00:00:00 [facility] Hep B, Adol or Pedi 2011-03-17 Completed Unive rsity of Dosage 00:00:00 [facility] Hep B, Adol or Pedi 2011-03-17 Completed Unive rsity of Dosage 00:00:00 [facility] Hep B, Adol or Pedi 2011-03-17 Completed Unive rsity of Dosage 00:00:00 [facility] Hep B, Adol or Pedi 2011-03-17 Completed Unive rsity of Dosage 00:00:00 [facility] Influenza Virus 2011-02-10 Completed Universit y of Vaccine 00:00:00 [facility] Hep B, Adol or Pedi 2011-02-10 Completed Unive rsity of Dosage 00:00:00 [facility] Influenza Virus 2011-02-10 Completed Universit y of Vaccine 00:00:00 [facility] Hep B, Adol or Pedi 2011-02-10 Completed Unive rsity of Dosage 00:00:00 [facility] Influenza Virus 2011-02-10 Completed Universit y of Vaccine 00:00:00 [facility] Hep B, Adol or Pedi 2011-02-10 Completed Unive rsity of Dosage 00:00:00 [facility] Influenza Virus 2011-02-10 Completed Universit y of Vaccine 00:00:00 [facility] Hep B, Adol or Pedi 2011-02-10 Completed Unive rsity of Dosage 00:00:00 [facility] Influenza Virus 2011-02-10 Completed Universit y of Vaccine 00:00:00 [facility] Hep B, Adol or Pedi 2011-02-10 Completed Unive rsity of Dosage 00:00:00 [facility] Influenza Virus 2011-02-10 Completed Universit y of Vaccine 00:00:00 [facility] Hep B, Adol or Pedi 2011-02-10 Completed Unive rsity of Dosage 00:00:00 [facility] Influenza Virus 2011-02-10 Completed Universit y of Vaccine 00:00:00 [facility] Hep B, Adol or Pedi 2011-02-10 Completed Unive rsity of Dosage 00:00:00 [facility] Influenza Virus 2011-02-10 Completed Universit y of Vaccine 00:00:00 [facility] Hep B, Adol or Pedi 2011-02-10 Completed Unive rsity of Dosage 00:00:00 [facility] Influenza Virus 2011-02-10 Completed Universit y of Vaccine 00:00:00 [facility] Hep B, Adol or Pedi 2011-02-10 Completed Unive rsity of Dosage 00:00:00 [facility] Influenza Virus 2011-02-10 Completed Universit y of Vaccine 00:00:00 [facility] Hep B, Adol or Pedi 2011-02-10 Completed Unive rsity of Dosage 00:00:00 [facility] Influenza Virus 2011-02-10 Completed Universit y of Vaccine 00:00:00 [facility] Hep B, Adol or Pedi 2011-02-10 Completed Unive rsity of Dosage 00:00:00 [facility] Influenza Virus 2011-02-10 Completed Universit y of Vaccine 00:00:00 [facility] Hep B, Adol or Pedi 2011-02-10 Completed Unive rsity of Dosage 00:00:00 [facility] Influenza Virus 2011-02-10 Completed Universit y of Vaccine 00:00:00 [facility] Hep B, Adol or Pedi 2011-02-10 Completed Unive rsity of Dosage 00:00:00 [facility] Influenza Virus 2011-02-10 Completed Universit y of Vaccine 00:00:00 [facility] Hep B, Adol or Pedi 2011-02-10 Completed Unive rsity of Dosage 00:00:00 [facility] Influenza Virus 2011-02-10 Completed Universit y of Vaccine 00:00:00 [facility] Hep B, Adol or Pedi 2011-02-10 Completed Unive rsity of Dosage 00:00:00 [facility] PPD (TB) 2010-11-18 Completed University of 00:00:00 [facility] TDAP (ADACEL) 2010-11-18 Completed University of VACCINE 00:00:00 [facility] PPD (TB) 2010-11-18 Completed University of 00:00:00 [facility] TDAP (ADACEL) 2010-11-18 Completed University of VACCINE 00:00:00 [facility] PPD (TB) 2010-11-18 Completed University of 00:00:00 [facility] TDAP (ADACEL) 2010-11-18 Completed University of VACCINE 00:00:00 [facility] PPD (TB) 2010-11-18 Completed University of 00:00:00 [facility] TDAP (ADACEL) 2010-11-18 Completed University of VACCINE 00:00:00 [facility] PPD (TB) 2010-11-18 Completed University of 00:00:00 [facility] TDAP (ADACEL) 2010-11-18 Completed University of VACCINE 00:00:00 [facility] PPD (TB) 2010-11-18 Completed University of 00:00:00 [facility] TDAP (ADACEL) 2010-11-18 Completed University of VACCINE 00:00:00 [facility] PPD (TB) 2010-11-18 Completed University of 00:00:00 [facility] TDAP (ADACEL) 2010-11-18 Completed University of VACCINE 00:00:00 [facility] PPD (TB) 2010-11-18 Completed University of 00:00:00 [facility] TDAP (ADACEL) 2010-11-18 Completed University of VACCINE 00:00:00 [facility] PPD (TB) 2010-11-18 Completed University of 00:00:00 [facility] TDAP (ADACEL) 2010-11-18 Completed University of VACCINE 00:00:00 [facility] PPD (TB) 2010-11-18 Completed University of 00:00:00 [facility] TDAP (ADACEL) 2010-11-18 Completed University of VACCINE 00:00:00 [facility] PPD (TB) 2010-11-18 Completed University of 00:00:00 [facility] TDAP (ADACEL) 2010-11-18 Completed University of VACCINE 00:00:00 [facility] PPD (TB) 2010-11-18 Completed University of 00:00:00 [facility] TDAP (ADACEL) 2010-11-18 Completed University of VACCINE 00:00:00 [facility] PPD (TB) 2010-11-18 Completed University of 00:00:00 [facility] TDAP (ADACEL) 2010-11-18 Completed University of VACCINE 00:00:00 [facility] PPD (TB) 2010-11-18 Completed University of 00:00:00 [facility] TDAP (ADACEL) 2010-11-18 Completed University of VACCINE 00:00:00 [facility] PPD (TB) 2010-11-18 Completed University of 00:00:00 [facility] TDAP (ADACEL) 2010-11-18 Completed University of VACCINE 00:00:00 [facility] HEPATITIS A 2004-03-02 Completed University of 00:00:00 [facility] HEPATITIS A 2004-03-02 Completed University of 00:00:00 [facility] HEPATITIS A 2004-03-02 Completed University of 00:00:00 [facility] HEPATITIS A 2004-03-02 Completed University of 00:00:00 [facility] HEPATITIS A 2004-03-02 Completed University of 00:00:00 [facility] HEPATITIS A 2004-03-02 Completed University of 00:00:00 [facility] HEPATITIS A 2004-03-02 Completed University of 00:00:00 [facility] HEPATITIS A 2004-03-02 Completed University of 00:00:00 [facility] HEPATITIS A 2004-03-02 Completed University of 00:00:00 [facility] HEPATITIS A 2004-03-02 Completed University of 00:00:00 [facility] HEPATITIS A 2004-03-02 Completed University of 00:00:00 [facility] HEPATITIS A 2004-03-02 Completed University of 00:00:00 [facility] HEPATITIS A 2004-03-02 Completed University of 00:00:00 [facility] HEPATITIS A 2004-03-02 Completed University of 00:00:00 [facility] HEPATITIS A 2004-03-02 Completed University of 00:00:00 [facility] HEPATITIS A 2003-08-01 Completed University of 00:00:00 [facility] HEPATITIS A 2003-08-01 Completed University of 00:00:00 [facility] HEPATITIS A 2003-08-01 Completed University of 00:00:00 [facility] HEPATITIS A 2003-08-01 Completed University of 00:00:00 [facility] HEPATITIS A 2003-08-01 Completed University of 00:00:00 [facility] HEPATITIS A 2003-08-01 Completed University of 00:00:00 [facility] HEPATITIS A 2003-08-01 Completed University of 00:00:00 [facility] HEPATITIS A 2003-08-01 Completed University of 00:00:00 [facility] HEPATITIS A 2003-08-01 Completed University of 00:00:00 [facility] HEPATITIS A 2003-08-01 Completed University of 00:00:00 [facility] HEPATITIS A 2003-08-01 Completed University of 00:00:00 [facility] HEPATITIS A 2003-08-01 Completed University of 00:00:00 [facility] HEPATITIS A 2003-08-01 Completed University of 00:00:00 [facility] HEPATITIS A 2003-08-01 Completed University of 00:00:00 [facility] HEPATITIS A 2003-08-01 Completed University of 00:00:00 [facility] Pneumococcal 2001-10-04 Completed University o f Polysaccharide, 00:00:00 [place] [facility] PPSV23 (PNEUMOVAX) Branch PPD (TB) 2001-10-04 Completed University of 00:00:00 [facility] Pneumococcal 2001-10-04 Completed University o f Polysaccharide, 00:00:00 [place] [facility] PPSV23 (PNEUMOVAX) Branch PPD (TB) 2001-10-04 Completed University of 00:00:00 [facility] Pneumococcal 2001-10-04 Completed University o f Polysaccharide, 00:00:00 [place] [facility] PPSV23 (PNEUMOVAX) Branch PPD (TB) 2001-10-04 Completed University of 00:00:00 [facility] Pneumococcal 2001-10-04 Completed University o f Polysaccharide, 00:00:00 [place] [facility] PPSV23 (PNEUMOVAX) Branch PPD (TB) 2001-10-04 Completed University of 00:00:00 [facility] Pneumococcal 2001-10-04 Completed University o f Polysaccharide, 00:00:00 [place] [facility] PPSV23 (PNEUMOVAX) Branch PPD (TB) 2001-10-04 Completed University of 00:00:00 [facility] Pneumococcal 2001-10-04 Completed University o f Polysaccharide, 00:00:00 [place] [facility] PPSV23 (PNEUMOVAX) Branch PPD (TB) 2001-10-04 Completed University of 00:00:00 [facility] Pneumococcal 2001-10-04 Completed University o f Polysaccharide, 00:00:00 [place] [facility] PPSV23 (PNEUMOVAX) Branch PPD (TB) 2001-10-04 Completed University of 00:00:00 [facility] Pneumococcal 2001-10-04 Completed University o f Polysaccharide, 00:00:00 [place] [facility] PPSV23 (PNEUMOVAX) Branch PPD (TB) 2001-10-04 Completed University of 00:00:00 [facility] Pneumococcal 2001-10-04 Completed University o f Polysaccharide, 00:00:00 [place] [facility] PPSV23 (PNEUMOVAX) Branch PPD (TB) 2001-10-04 Completed University of 00:00:00 [facility] Pneumococcal 2001-10-04 Completed University o f Polysaccharide, 00:00:00 [place] [facility] PPSV23 (PNEUMOVAX) Branch PPD (TB) 2001-10-04 Completed University of 00:00:00 [facility] Pneumococcal 2001-10-04 Completed University o f Polysaccharide, 00:00:00 [place] [facility] PPSV23 (PNEUMOVAX) Branch PPD (TB) 2001-10-04 Completed University of 00:00:00 [facility] Pneumococcal 2001-10-04 Completed University o f Polysaccharide, 00:00:00 [place] [facility] PPSV23 (PNEUMOVAX) Branch PPD (TB) 2001-10-04 Completed University of 00:00:00 [facility] Pneumococcal 2001-10-04 Completed University o f Polysaccharide, 00:00:00 [place] [facility] PPSV23 (PNEUMOVAX) Branch PPD (TB) 2001-10-04 Completed University of 00:00:00 [facility] Pneumococcal 2001-10-04 Completed University o f Polysaccharide, 00:00:00 [place] [facility] PPSV23 (PNEUMOVAX) Branch PPD (TB) 2001-10-04 Completed University of 00:00:00 [facility] Pneumococcal 2001-10-04 Completed [place] [facility], 00:00:00 [place] [facility] PPSV23 (PNEUMOVAX) Branch PPD (TB) 2001-10-04 Completed University of 00:00:00 [facility] Vital Signs Vital Name Observation Time Observation Value Comments Source Systolic blood 2022-05-08 22:30:00 168 mm[Hg] Univer sity of pressure [facility] Diastolic blood 2022-05-08 22:30:00 85 mm[Hg] Unive rsity of pressure [facility] Heart rate 2022-05-08 22:30:00 68 /min Universi ty of [facility] Oxygen saturation in 2022-05-08 22:30:00 100 /min University of Arterial blood by [place] [facility] Pulse oximetry Branch Body temperature 2022-05-08 22:22:00 35.89 Amina Univ ersity of [facility] Respiratory rate 2022-05-08 22:22:00 14 /min [facility] Body weight 2022-05-08 22:22:00 78.926 kg [facility] BMI 2022-05-08 22:22:00 29.87 kg/m2 [facility] Systolic blood 2022-05-07 00:00:00 149 mm[Hg] Univer [facility]ity of pressure [facility] Diastolic blood 2022-05-07 00:00:00 132 mm[Hg] Unive rsity of pressure [facility] Heart rate 2022-05-07 00:00:00 59 /min [facility] Respiratory rate 2022-05-07 00:00:00 14 /min Univ ersity of [facility] Oxygen saturation in 2022-05-07 00:00:00 99 /min University of Arterial blood by [place] [facility] P[facility]xim[facility] Body temperature 2022-05-06 20:12:00 36.5 Amina Univ ersity of [facility] Body height 2022-05-06 20:12:00 162.6 cm [facility] Body weight 2022-05-06 20:12:00 78.926 kg [facility] BMI 2022-05-06 20:12:00 29.87 kg/m2 [facility] Systolic blood 2022-04-22 19:50:00 156 mm[Hg] Univer sity of pressure [facility] Diastolic blood 2022-04-22 19:50:00 89 mm[Hg] Unive rsity of pressure [facility] Heart rate 2022-04-22 19:50:00 69 /min [facility]i ty of [facility] Body temperature 2022-04-22 19:50:00 36.67 Amina Univ ers[facility] of [facility] Respiratory rate 2022-04-22 19:50:00 17 /min Univ ersity of [facility] Body height 2022-04-22 19:50:00 162.6 cm [facility] Body weight 2022-04-22 19:50:00 80.74 kg [facility] BMI 2022-04-22 19:50:00 30.55 kg/m2 [facility]i ty of [facility] Oxygen saturation in 2022-04-22 19:50:00 96 /min University of Arterial blood by [facility] Pulse oximetry Branch Systolic blood 2022-03-05 15:23:00 167 mm[Hg] Univer sity of pressure [facility] Diastolic blood 2022-03-05 15:23:00 105 mm[Hg] Unive rsity of pressure [facility] Heart rate 2022-03-05 15:23:00 49 /min [facility] Body temperature 2022-03-05 15:18:00 36.67 Amina Univ ersity of [facility] Respiratory rate 2022-03-05 15:18:00 18 [...] 51 /min [facility] Body temperature 2022-02-16 21:41:00 36.56 Amina [facility] ersity of [facility] Respiratory rate 2022-02-16 21:41:00 17 /min [facility] Oxygen saturation in 2022-02-16 21:41:00 98 /min University Arterial blood by [facility] Pulse oximetry Branch Body height 2022-02-11 16:02:00 162.6 cm [facility] Body weight 2022-02-11 16:02:00 79.379 kg Universi ty of [facility] BMI 2022-02-11 16:02:00 30.04 kg/m2 [facility] Systolic blood 2021-11-20 13:47:00 165 mm[Hg] Univer sity of pressure [facility] Diastolic blood 2021-11-20 13:47:00 83 mm[Hg] Unive rsity of pressure [facility] Heart rate 2021-11-20 13:47:00 58 /min [facility] Body temperature 2021-11-20 13:42:00 36.39 Amina [facility] ersity of [facility] Respiratory rate 2021-11-20 13:42:00 16 /min [facility] Body height 2021-11-20 13:42:00 162.6 cm [facility] Body weight 2021-11-20 13:42:00 84.369 kg [facility] BMI 2021-11-20 13:42:00 31.93 kg/m2 [facility] Systolic blood 2021-07-14 15:18:00 142 [...] 15:23:00 167 mm[Hg] Univer sity of pressure [facility] Diastolic blood 2022-03-05 15:23:00 105 mm[Hg] Unive rsity of [facility] Heart rate 2022-03-05 15:23:00 49 /min Universi ty [facility] Body temperature 2022-03-05 15:18:00 36.67 Amina Univ ersity [facility] Respiratory rate 2022-03-05 15:18:00 18 /min [facility] 2022-03-05 15:18:00 162.6 cm [facility] ty [facility] Body weight 2022-03-05 15:18:00 74.707 kg [facility]i ty [facility] BMI 2022-03-05 15:18:00 28.27 kg/m2 [facility] Oxygen saturation in 2022-02-16 21:41:00 98 /min University Arterial blood by [facility] Pulse oximetry [place] Systolic blood 2020-12-08 15:48:00 125 mm[Hg] [facility] pressure Diastolic blood 2020-12-08 15:48:00 76 mm[Hg] [facility] pressure Heart rate 2020-12-08 15:48:00 64 /min [facility] Body temperature 2020-12-08 15:48:00 36.61 Amina [facility] Respiratory rate 2020-12-08 15:48:00 17 /min [facility] Body height 2020-12-08 15:48:00 162.6 cm [facility] Body weight 2020-12-08 15:48:00 98.884 kg [facility] BMI 2020-12-08 15:48:00 37.42 kg/m2 [facility] Oxygen saturation in 2020-12-08 15:48:00 97 /min [facility] Arterial blood by Pulse oximetry Respitory Rate 2020-08-30 13:00:00 Memori al Marty Systolic (mm Hg) 2020-08-30 13:00:00 Caesar rial Marty Diastolic (mm Hg) 2020-08-30 13:00:00 Mem orial Marty Systolic (mm Hg) 2020-08-30 11:00:00 Caesar rial [facility] Diastolic (mm Hg) 2020-08-30 11:00:00 Mem orial [facility] Temperature Oral (F) 2020-08-30 11:00:00 98.4 F [facility] Respitory Rate 2020-08-30 11:00:00 Memori al Marty Respitory Rate 2020-08-30 10:00:00 Memori al [facility] Systolic (mm Hg) 2020-08-30 10:00:00 Caesar rial Marty Diastolic (mm Hg) 2020-08-30 10:00:00 Mem orial [facility] Temperature Oral (F) 2020-08-30 00:00:00 96.9 F [facility] Temperature Oral (F) 2020-08-29 11:26:[address] [facility] Height 2020-08-29 10:30:00 162.56 cm [facility] Weight 2020-08-29 10:30:00 [facility] BMI Calculated 2020-08-29 10:30:00 [place] andre Marty Procedures Procedure Date / Time Performing Clinician Source Performed URINALYSIS 2022-05-08 22:43:00 Theresa Hickman [facility] XR CHEST 2 VW 2022-05-06 22:56:53 Anette Olea [facility] COMP. METABOLIC PANEL 2022-05-06 22:14:00 Anette Olea [facility] ([id number]) Medical Branch CBC WITH DIFF 2022-05-06 22:14:00 Anette Olea [facility] COVID-19 (ID NOW RAPID 2022-05-06 22:14:00 Anette Olea [facility] TESTING) Medical Branch BASIC METABOLIC PANEL (NA, 2022-04-22 21:23:00 Paulette Gray U [facility] K, CL, CO2, GLUCOSE, BUN, Medica l Branch CREATININE, CA) CBC WITH DIFF 2022-04-22 21:23:00 Paulette Gray [facility] CONSENT/REFUSAL FOR 2022-04-22 19:45:46 Doctor Unassigned, [facility] DIAGNOSIS AND TREATMENT [place] [facility] SARS-COV-2 COVID-19 2022-03-05 16:09:27 [facility] DIMITRIS-SUCROSE VACCINE [facility] [place] YRS+, BIVALENT 0.3ML, IM, (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) FLU 2022-03-05 16:09:27 [facility] VACC(),65+YR,0.5 Medica l Branch ML,IM,ADJUVANTED,QUAD(FLUA D) FLU 2022-03-05 16:09:27 [facility] VACC(),65+YR,0.5 Medica l Branch ML,IM,ADJUVANTED,QUAD(FLUA D) SARS-COV-2 COVID-19 2022-03-05 16:09:27 [facility] DIMITRIS-SUCROSE VACCINE [address] [place] [address] YRS+, BIVALENT 0.3ML, IM, (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) MAGNESIUM 2022-02-15 09:41:00 Radha [facility] BASIC METABOLIC PANEL (NA, 2022-02-15 09:41:00 Radha [facility] K, CL, CO2, GLUCOSE, BUN, Medica l Branch CREATININE, CA) CBC WITH DIFF 2022-02-15 09:41:00 Rad[facility] N-TERMINAL PRO-BNP 2022-02-15 09:41:[address] [facility] CBC WITH DIFF 2022-02-15 09:41:00 Radha Sofia [facility] BASIC METABOLIC PANEL (NA, 2022-02-15 09:41:00 Sofia Garcia [facility] K, CL, CO2, GLUCOSE, BUN, Medica l Branch CREATININE, CA) MAGNESIUM 2022-02-15 09:41:00 Radha [facility] N-TERMINAL PRO-BNP 2022-02-15 09:41:[address] [facility] BASIC METABOLIC PANEL (NA, 2022-02-13 09:40:00 Radha Sofia [facility] K, CL, CO2, GLUCOSE, BUN, Medica l Branch CREATININE, CA) CBC WITH DIFF 2022-02-13 09:40:00 Radha [facility] BASIC METABOLIC PANEL (NA, 2022-02-13 09:40[facility], [facility], GLUCOSE, BUN, Medica l Branch CREATININE, CA) CBC WITH DIFF 2022-02-13 09:40:00 Rad[facility] TROPONIN I 2022-02-11 23:41:00 Rad[facility] N-TERMINAL PRO-BNP 2022-02-11 23:41:[address] [facility] TROPONIN I 2022-02-11 23:41:00 Radha [facility] N-TERMINAL PRO-BNP 2022-02-11 23:41:00 [facility]THM 2022-02-11 22:15:36 Sofia Garcia [facility] TRANSTHORACIC ECHO (TTE) 2022-02-11 21:26:50 [facility] 2022-02-11 21:26:50 [facility] W 2022-02-11 07:45:43 Reilly Means [facility] CONTRAST [facility] CT ABDOMEN PELVIS W 2022-02-11 07:45:43 Miguelangel Reilly [facility] RAPID INFLUENZA A/B 2022-02-11 06:54:00 Miguelangel [facility] RAPID INFLUENZA A/B 2022-02-11 06:54:[address] [facility] URINALYSIS 2022-02-11 06:45:00 Reilly Means [facility] URINE CULTURE 2022-02-11 06:45:00 Miguelangel Reilly [facility] URINALYSIS 2022-02-11 06:45:00 Miguelangel [facility] URINE CULTURE 2022-02-11 06:45:00 Miguelangel Reilly [facility] HB ECG ROUTINE & RHYTHM 2022-02-11 05:22:08 Reilly Means [facility] HB ECG ROUTINE & RHYTHM 2022-02-11 05:22:08 Reilly Means [facility] BLOOD CULTURE SCREEN 2022-02-11 04:58:00 Reilly Means [facility] TROPONIN I 2022-02-11 04:58:00 Reilly Means [facility] COMP. METABOLIC PANEL 2022-02-11 04:58:00 Reilly Means [facility] ([id number]) Medical Branch CBC WITH DIFF 2022-02-11 04:58:00 Reilly Means [facility] PROTHROMBIN TIME / INR 2022-02-11 04:58:00 Reilly Means [facility] ACTIVATED PARTIAL THRMPLAS 2022-02-11 04:58:00 Reilly Means [facility] N-TERMINAL PRO-BNP 2022-02-11 04:58:00 Reilly Means [facility] LACTIC ACID WHOLE BLOOD 2022-02-11 04:58:[address] [facility] COVID-19 (ID NOW RAPID 2022-02-11 04:58:00 Reilly Means [facility] TESTING) Medical Branch LAB ONLY COVID 2022-02-11 04:58:00 Reilly Means [facility] CBC WITH DIFF 2022-02-11 04:58:00 Reilly Means [facility] ACTIVATED PARTIAL THRMPLAS 2022-02-11 04:58:00 Reilly Means [facility] PROTHROMBIN TIME / INR 2022-02-11 04:58:00 Reilly Means [facility] COVID-19 (ID NOW RAPID 2022-02-11 04:58:00 Reilly Means [facility] TESTING) Medical Branch COMP. METABOLIC PANEL 2022-02-11 04:58:00 Reilly Means [facility] ([id number]) Medical Branch TROPONIN I 2022-02-11 04:58:00 Reilly Means [facility] N-TERMINAL PRO-BNP 2022-02-11 04:58:00 Reilly Means [facility] BLOOD CULTURE SCREEN 2022-02-11 04:58:00 Reilly Means [facility] LACTIC ACID WHOLE BLOOD 2022-02-11 04:58:[address] [facility] LAB ONLY COVID 2022-02-11 04:58:00 Reilly Means [facility] XR CHEST 1 VW 2022-02-11 04:27:42 Miguelangel Reilly [facility] XR CHEST 1 VW 2022-02-11 04:27:42 Miguelangel Reilly [facility] HOSPITAL ADMISSION 2022-02-10 05:01:00 Doctor Unassigned, [facility] Name [facility] HOSPITAL ADMISSION 2022-02-10 05:01:00 Doctor Unassigned, [facility] ECG 12-LEAD 2021-07-14 15:14:00 Elan Lira [facility] [id number] 2021-06-17 00:00:00 RIKY CLARK [facility] GASTROINTESTINAL PANEL 2020-12-08 22:21:00 Eliseo Arce [facility] XR ABDOMEN 1 VW 2020-12-08 18:06:32 Eliseo Arce spital OR [place] < 1 HOUR 2020-09-05 22:39:00 Eliseo Arce spital SURGICAL PATHOLOGY REQUEST 2020-09-05 21:54:00 Eliseo Arce [facility] XR CHEST 1 PORTABLE 2020-09-05 19:55:00 Eliseo Arce [facility] DISCHARGE PATIENT 2020-09-05 17:27:55 Lucas Harris [facility] [place] AN ELECTIVE 2020-09-05 16:47:23 Kirit Flood [facility] ENDOTRACHEAL AIRWAY EGD, INTRAOPERATIVE 2020-09-05 16:27:00 [facility]IN 2020-09-05 15:04:00 Sarai Maharaj [facility] TIME (PTT) M. PROTHROMBIN TIME WITH INR 2020-09-05 15:04:00 Mindy Maharaj [facility] M. Plan of Care Planned Activity Planned Date Details Comments Source Future Scheduled 2022-05-06 SHINGLES VACCINES (1 Met [facility] Test 14:03:13 of 2) [code = SHINGLES VACCINES (1 of 2)] Future Scheduled 2022-05-06 BREAST CANCER [facility] Test 14:03:13 SCREENING [code = BREAST CANCER SCREENING] Future Scheduled 2022-05-06 COLONOSCOPY SCREENING [facility] Test 14:03:13 [code = COLONOSCOPY SCREENING] Future Scheduled 2022-05-06 HEPATITIS B VACCINES Met [facility] Test 14:03:13 (1 of 3 - Risk 3-dose series) [code = HEPATITIS B VACCINES (1 of 3 - Risk 3-dose series)] Future Scheduled 2022-05-06 COVID-19 VACCINE (3 - [facility] Test 14:03:13 Booster for Pfizer series) [code = COVID-19 VACCINE (3 - Booster for Pfizer series)] Future Scheduled 2022-05-06 65+ PNEUMOCOCCAL [facility] Test 14:03:13 VACCINE (4 - PPSV23 if available, else PCV20) [code = 65+ PNEUMOCOCCAL VACCINE (4 - PPSV23 if available, else PCV20)] Future Scheduled 2022-05-06 INFLUENZA VACCINE Method [facility] Test 14:03:13 [code = INFLUENZA VACCINE] Future Scheduled 2022-04-30 SHINGLES VACCINES (1 Met [facility] Test 01:07:32 of 2) [code = SHINGLES VACCINES (1 of 2)] Future Scheduled 2022-04-30 BREAST CANCER [facility] Test 01:07:32 SCREENING [code = BREAST CANCER SCREENING] Future Scheduled 2022-04-30 COLONOSCOPY SCREENING [facility] Test 01:07:32 [code = COLONOSCOPY SCREENING] Future Scheduled 2022-04-30 HEPATITIS B VACCINES Met [facility] Test 01:07:32 (1 of 3 - Risk 3-dose series) [code = HEPATITIS B VACCINES (1 of 3 - Risk 3-dose series)] Future Scheduled 2022-04-30 COVID-19 VACCINE (3 - [facility] Test 01:07:32 Booster for Pfizer series) [code = COVID-19 VACCINE (3 - Booster for Pfizer series)] Future Scheduled 2022-04-30 65+ [facility]AL [facility] Test 01:07:32 VACCINE (4 - PPSV23 if available, else PCV20) [code = 65+ PNEUMOCOCCAL VACCINE (4 - PPSV23 if available, else PCV20)] Future Scheduled 2022-04-30 INFLUENZA VACCINE Method [facility] Test 01:07:32 [code = INFLUENZA VACCINE] Future Scheduled 2022-04-30 SHINGLES VACCINES (1 Met [facility] Test 01:07:32 of 2) [code = SHINGLES VACCINES (1 of 2)] Future Scheduled 2022-04-30 BREAST CANCER [facility] Test 01:07:32 SCREENING [code = BREAST CANCER SCREENING] Future Scheduled 2022-04-30 COLONOSCOPY SCREENING [facility] Test 01:07:32 [code = COLONOSCOPY SCREENING] Future Scheduled 2022-04-30 HEPATITIS B VACCINES Met [facility] Test 01:07:32 (1 of 3 - Risk 3-dose series) [code = HEPATITIS B VACCINES (1 of 3 - Risk 3-dose series)] Future Scheduled 2022-04-30 COVID-19 VACCINE (3 - [facility] Test 01:07:32 Booster for Pfizer series) [code = COVID-19 VACCINE (3 - Booster for Pfizer series)] Future Scheduled 2022-04-30 65+ [facility]AL [facility] Test 01:07:32 VACCINE (4 - PPSV23 if available, else PCV20) [code = 65+ PNEUMOCOCCAL VACCINE (4 - PPSV23 if available, else PCV20)] Future Scheduled 2022-04-30 INFLUENZA VACCINE Method [facility] Test 01:07:32 [code = INFLUENZA VACCINE] Future Scheduled 2022-04-30 SHINGLES VACCINES (1 Met [facility] Test 01:07:32 of 2) [code = SHINGLES VACCINES (1 of 2)] Future Scheduled 2022-04-30 BREAST CANCER [facility] Test 01:07:32 SCREENING [code = BREAST CANCER SCREENING] Future Scheduled 2022-04-30 COLONOSCOPY SCREENING [facility] Test 01:07:32 [code = COLONOSCOPY SCREENING] Future Scheduled 2022-04-30 HEPATITIS B VACCINES Met [facility] Test 01:07:32 (1 of 3 - Risk 3-dose series) [code = HEPATITIS B VACCINES (1 of 3 - Risk 3-dose series)] Future Scheduled 2022-04-30 COVID-19 VACCINE (3 - [facility] Test 01:07:32 Booster for Pfizer series) [code = COVID-19 VACCINE (3 - Booster for Pfizer series)] Future Scheduled 2022-04-30 65[facility] Test 01:07:32 VACCINE (4 - PPSV23 if available, else PCV20) [code = 65+ PNEUMOCOCCAL VACCINE (4 - PPSV23 if available, else PCV20)] Future Scheduled 2022-04-30 INFLUENZA VACCINE Method [facility] Test 01:07:32 [code = INFLUENZA VACCINE] Future Scheduled 2022-04-25 SHINGLES VACCINES (1 Met [facility] Test 01:45:02 of 2) [code = SHINGLES VACCINES (1 of 2)] Future Scheduled 2022-04-25 BREAST CANCER [facility] Test 01:45:02 SCREENING [code = BREAST CANCER SCREENING] Future Scheduled 2022-04-25 COLONOSCOPY SCREENING [facility] Test 01:45:02 [code = COLONOSCOPY SCREENING] Future Scheduled 2022-04-25 HEPATITIS B VACCINES Met [facility] Test 01:45:02 (1 of 3 - Risk 3-dose series) [code = HEPATITIS B VACCINES (1 of 3 - Risk 3-dose series)] Future Scheduled 2022-04-25 COVID-19 VACCINE (3 - [facility] Test 01:45:02 Booster for Pfizer series) [code = COVID-19 VACCINE (3 - Booster for Pfizer series)] Future Scheduled 2022-04-25 65+ PNEUMOCOCCAL [facility] Test 01:45:02 VACCINE (4 - PPSV23 if available, else PCV20) [code = 65+ PNEUMOCOCCAL VACCINE (4 - PPSV23 if available, else PCV20)] Future Scheduled 2022-04-25 INFLUENZA VACCINE Method [facility] Test 01:45:02 [code = INFLUENZA VACCINE] Future Scheduled 2022-03-25 SHINGLES VACCINES (1 Met [facility] Test 14:48:42 of 2) [code = SHINGLES VACCINES (1 of 2)] Future Scheduled 2022-03-25 BREAST CANCER [facility] Test 14:48:42 SCREENING [code = BREAST CANCER SCREENING] Future Scheduled 2022-03-25 COLONOSCOPY SCREENING [facility] Test 14:48:42 [code = COLONOSCOPY SCREENING] Future Scheduled 2022-03-25 HEPATITIS B VACCINES Met [facility] Test 14:48:42 (1 of 3 - Risk 3-dose series) [code = HEPATITIS B VACCINES (1 of 3 - Risk 3-dose series)] Future Scheduled 2022-03-25 COVID-19 VACCINE (3 - [facility] Test 14:48:42 Booster for Pfizer series) [code = COVID-19 VACCINE (3 - Booster for Pfizer series)] Future Scheduled 2022-03-25 65+ [facility]CCAL [facility] Test 14:48:42 VACCINE (4 - PPSV23 if available, else PCV20) [code = 65+ PNEUMOCOCCAL VACCINE (4 - PPSV23 if available, else PCV20)] Future Scheduled 2022-03-25 INFLUENZA VACCINE Method [facility] Test 14:48:42 [code = INFLUENZA VACCINE] Future Scheduled 2022-03-25 SHINGLES VACCINES (1 Met [facility] Test 14:48:42 of 2) [code = SHINGLES VACCINES (1 of 2)] Future Scheduled 2022-03-25 BREAST CANCER [facility] Test 14:48:42 SCREENING [code = BREAST CANCER SCREENING] Future Scheduled 2022-03-25 COLONOSCOPY SCREENING Me [facility] Test 14:48:42 [code = COLONOSCOPY SCREENING] Future Scheduled 2022-03-25 HEPATITIS B VACCINES Met [facility] Test 14:48:42 (1 of 3 - Risk 3-dose series) [code = HEPATITIS B VACCINES (1 of 3 - Risk 3-dose series)] Future Scheduled 2022-03-25 COVID-19 VACCINE (3 - Me [facility] Test 14:48:42 Booster for Pfizer series) [code = COVID-19 VACCINE (3 - Booster for Pfizer series)] Future Scheduled 2022-03-25 65+ [facility]CCAL [facility] Test 14:48:42 VACCINE (4 - PPSV23 if available, else PCV20) [code = 65+ PNEUMOCOCCAL VACCINE (4 - PPSV23 if available, else PCV20)] Future Scheduled 2022-03-25 INFLUENZA VACCINE Method [facility] Test 14:48:42 [code = INFLUENZA VACCINE] Future Scheduled 2022-03-25 SHINGLES VACCINES (1 Met [facility] Test 14:48:42 of 2) [code = SHINGLES VACCINES (1 of 2)] Future Scheduled 2022-03-25 BREAST CANCER [facility] Test 14:48:42 SCREENING [code = BREAST CANCER SCREENING] Future Scheduled 2022-03-25 COLONOSCOPY SCREENING Me [facility] Test 14:48:42 [code = COLONOSCOPY SCREENING] Future Scheduled 2022-03-25 HEPATITIS B VACCINES Met [facility] Test 14:48:42 (1 of 3 - Risk 3-dose series) [code = HEPATITIS B VACCINES (1 of 3 - Risk 3-dose series)] Future Scheduled 2022-03-25 COVID-19 VACCINE (3 - Me [facility] Test 14:48:42 Booster for Pfizer series) [code = COVID-19 VACCINE (3 - Booster for Pfizer series)] Future Scheduled 2022-03-25 65+ [facility]CCAL [facility] Test 14:48:42 VACCINE (4 - PPSV23 if available, else PCV20) [code = 65+ PNEUMOCOCCAL VACCINE (4 - PPSV23 if available, else PCV20)] Future Scheduled 2022-03-25 INFLUENZA VACCINE Method [facility] Test 14:48:42 [code = INFLUENZA VACCINE] Future Scheduled 2022-03-25 SHINGLES VACCINES (1 Met [facility] Test 14:48:42 of 2) [code = SHINGLES VACCINES (1 of 2)] Future Scheduled 2022-03-25 BREAST CANCER [facility] Test 14:48:42 SCREENING [code = BREAST CANCER SCREENING] Future Scheduled 2022-03-25 COLONOSCOPY SCREENING [facility] Test 14:48:42 [code = COLONOSCOPY SCREENING] Future Scheduled 2022-03-25 HEPATITIS B VACCINES Met [facility] Test 14:48:42 (1 of 3 - Risk 3-dose series) [code = HEPATITIS B VACCINES (1 of 3 - Risk 3-dose series)] Future Scheduled 2022-03-25 COVID-19 VACCINE (3 - Me [facility] Test 14:48:42 Booster for Pfizer series) [code = COVID-19 VACCINE (3 - Booster for Pfizer series)] Future Scheduled 2022-03-25 65+ [facility]OCOCCAL [facility] Test 14:48:42 VACCINE (4 - PPSV23 if available, else PCV20) [code = 65+ PNEUMOCOCCAL VACCINE (4 - PPSV23 if available, else PCV20)] Future Scheduled 2022-03-25 INFLUENZA VACCINE Method [facility] Test 14:48:42 [code = INFLUENZA VACCINE] Future Scheduled 2022-03-25 SHINGLES VACCINES (1 Met [facility] Test 14:48:42 of 2) [code = SHINGLES VACCINES (1 of 2)] Future Scheduled 2022-03-25 BREAST CANCER [facility] Test 14:48:42 SCREENING [code = BREAST CANCER SCREENING] Future Scheduled 2022-03-25 COLONOSCOPY SCREENING Me [facility] Test 14:48:42 [code = COLONOSCOPY SCREENING] Future Scheduled 2022-03-25 HEPATITIS B VACCINES Met [facility] Test 14:48:42 (1 of 3 - Risk 3-dose series) [code = HEPATITIS B VACCINES (1 of 3 - Risk 3-dose series)] Future Scheduled 2022-03-25 COVID-19 VACCINE (3 - Me [facility] Test 14:48:42 Booster for Pfizer series) [code = COVID-19 VACCINE (3 - Booster for Pfizer series)] Future Scheduled 2022-03-25 65+ [facility]OCOCCAL [facility] Test 14:48:42 VACCINE (4 - PPSV23 if available, else PCV20) [code = 65+ PNEUMOCOCCAL VACCINE (4 - PPSV23 if available, else PCV20)] Future Scheduled 2022-03-25 INFLUENZA VACCINE Method [facility] Test 14:48:42 [code = INFLUENZA VACCINE] Future Scheduled 2022-03-25 SHINGLES VACCINES (1 Met [facility] Test 14:48:42 of 2) [code = SHINGLES VACCINES (1 of 2)] Future Scheduled 2022-03-25 BREAST CANCER [facility] Test 14:48:42 SCREENING [code = BREAST CANCER SCREENING] Future Scheduled 2022-03-25 COLONOSCOPY SCREENING [facility] Test 14:48:42 [code = COLONOSCOPY SCREENING] Future Scheduled 2022-03-25 HEPATITIS B VACCINES Met [facility] Test 14:48:42 (1 of 3 - Risk 3-dose series) [code = HEPATITIS B VACCINES (1 of 3 - Risk 3-dose series)] Future Scheduled 2022-03-25 COVID-19 VACCINE (3 - Me [facility] Test 14:48:42 Booster for Pfizer series) [code = COVID-19 VACCINE (3 - Booster for Pfizer series)] Future Scheduled 2022-03-25 65+ [facility]AL [facility] 14:48:42 VACCINE (4 - PPSV23 if available, else PCV20) [code = 65+ PNEUMOCOCCAL VACCINE (4 - PPSV23 if available, else PCV20)] Future Scheduled 2022-03-25 INFLUENZA VACCINE Method [facility] Test 14:48:42 [code = INFLUENZA VACCINE] Future Scheduled 2022-03-25 SHINGLES VACCINES (1 Met [facility] Test 14:48:42 of 2) [code = SHINGLES VACCINES (1 of 2)] Future Scheduled 2022-03-25 BREAST CANCER [facility] Test 14:48:42 SCREENING [code = BREAST CANCER SCREENING] Future Scheduled 2022-03-25 COLONOSCOPY SCREENING [facility] Test 14:48:42 [code = COLONOSCOPY SCREENING] Future Scheduled 2022-03-25 HEPATITIS B VACCINES Met [facility] Test 14:48:42 (1 of 3 - Risk 3-dose series) [code = HEPATITIS B VACCINES (1 of 3 - Risk 3-dose series)] Future Scheduled 2022-03-25 COVID-19 VACCINE (3 - Me [facility] Test 14:48:42 Booster for Pfizer series) [code = COVID-19 VACCINE (3 - Booster for Pfizer series)] Future Scheduled 2022-03-25 65+ [facility]CCAL [facility] Test 14:48:42 VACCINE (4 - PPSV23 if available, else PCV20) [code = 65+ PNEUMOCOCCAL VACCINE (4 - PPSV23 if available, else PCV20)] Future Scheduled 2022-03-25 INFLUENZA VACCINE Method [facility] Test 14:48:42 [code = INFLUENZA VACCINE] Future Scheduled 2022-03-25 SHINGLES VACCINES (1 Met [facility] Test 14:48:42 of 2) [code = SHINGLES VACCINES (1 of 2)] Future Scheduled 2022-03-25 BREAST CANCER [facility] Test 14:48:42 SCREENING [code = BREAST CANCER SCREENING] Future Scheduled 2022-03-25 COLONOSCOPY SCREENING [facility] Test 14:48:42 [code = COLONOSCOPY SCREENING] Future Scheduled 2022-03-25 HEPATITIS B VACCINES Met [facility] Test 14:48:42 (1 of 3 - Risk 3-dose series) [code = HEPATITIS B VACCINES (1 of 3 - Risk 3-dose series)] Future Scheduled 2022-03-25 COVID-19 VACCINE (3 - [facility] Test 14:48:42 Booster for Pfizer series) [code = COVID-19 VACCINE (3 - Booster for Pfizer series)] Future Scheduled 2022-03-25 65+ [facility] Test 14:48:42 VACCINE (4 - PPSV23 if available, else PCV20) [code = 65+ PNEUMOCOCCAL VACCINE (4 - PPSV23 if available, else PCV20)] Future Scheduled 2022-03-25 INFLUENZA VACCINE Method [facility] Test 14:48:42 [code = INFLUENZA VACCINE] Future Scheduled 2022-03-25 SHINGLES VACCINES (1 Met [facility] Test 14:48:42 of 2) [code = SHINGLES VACCINES (1 of 2)] Future Scheduled 2022-03-25 BREAST CANCER [facility] Test 14:48:42 SCREENING [code = BREAST CANCER SCREENING] Future Scheduled 2022-03-25 COLONOSCOPY SCREENING [facility] Test 14:48:42 [code = COLONOSCOPY SCREENING] Future Scheduled 2022-03-25 HEPATITIS B VACCINES Met [facility] Test 14:48:42 (1 of 3 - Risk 3-dose series) [code = HEPATITIS B VACCINES (1 of 3 - Risk 3-dose series)] Future Scheduled 2022-03-25 COVID-19 VACCINE (3 - [facility] Test 14:48:42 Booster for Pfizer series) [code = COVID-19 VACCINE (3 - Booster for Pfizer series)] Future Scheduled 2022-03-25 65+ [facility]AL [facility] Test 14:48:42 VACCINE (4 - PPSV23 if available, else PCV20) [code = 65+ PNEUMOCOCCAL VACCINE (4 - PPSV23 if available, else PCV20)] Future Scheduled 2022-03-25 INFLUENZA VACCINE Method [facility] Test 14:48:42 [code = INFLUENZA VACCINE] Future Scheduled 2022-03-04 SHINGLES VACCINES (1 Met [facility] Test 14:03:57 of 2) [code = SHINGLES VACCINES (1 of 2)] Future Scheduled 2022-03-04 BREAST CANCER [facility] Test 14:03:57 SCREENING [code = BREAST CANCER SCREENING] Future Scheduled 2022-03-04 COLONOSCOPY SCREENING [facility] Test 14:03:57 [code = COLONOSCOPY SCREENING] Future Scheduled 2022-03-04 HEPATITIS B VACCINES Met [facility] Test 14:03:57 (1 of 3 - Risk 3-dose series) [code = HEPATITIS B VACCINES (1 of 3 - Risk 3-dose series)] Future Scheduled 2022-03-04 COVID-19 VACCINE (3 - [facility] Test 14:03:57 Booster for Pfizer series) [code = COVID-19 VACCINE (3 - Booster for Pfizer series)] Future Scheduled 2022-03-04 65+ PNEUMOCOCCAL [facility] Test 14:03:57 VACCINE (4 - PPSV23 if available, else PCV20) [code = 65+ PNEUMOCOCCAL VACCINE (4 - PPSV23 if available, else PCV20)] Future Scheduled 2022-03-04 INFLUENZA VACCINE Method [facility] Test 14:03:57 [code = INFLUENZA VACCINE] Future Scheduled 2022-03-04 SHINGLES VACCINES (1 Met [facility] Test 14:03:57 of 2) [code = SHINGLES VACCINES (1 of 2)] Future Scheduled 2022-03-04 BREAST CANCER [facility] Test 14:03:57 SCREENING [code = BREAST CANCER SCREENING] Future Scheduled 2022-03-04 COLONOSCOPY SCREENING [facility] Test 14:03:57 [code = COLONOSCOPY SCREENING] Future Scheduled 2022-03-04 HEPATITIS B VACCINES Met [facility] Test 14:03:57 (1 of 3 - Risk 3-dose series) [code = HEPATITIS B VACCINES (1 of 3 - Risk 3-dose series)] Future Scheduled 2022-03-04 COVID-19 VACCINE (3 - [facility] Test 14:03:57 Booster for Pfizer series) [code = COVID-19 VACCINE (3 - Booster for Pfizer series)] Future Scheduled 2022-03-04 65+ PNEUMOCOCCAL [facility] Test 14:03:57 VACCINE (4 - PPSV23 if available, else PCV20) [code = 65+ PNEUMOCOCCAL VACCINE (4 - PPSV23 if available, else PCV20)] Future Scheduled 2022-03-04 INFLUENZA VACCINE Method [facility] Test 14:03:57 [code = INFLUENZA VACCINE] Future Scheduled 2022-03-04 SHINGLES VACCINES (1 Met [facility] Test 14:03:57 of 2) [code = SHINGLES VACCINES (1 of 2)] Future Scheduled 2022-03-04 BREAST CANCER [facility] Test 14:03:57 SCREENING [code = BREAST CANCER SCREENING] Future Scheduled 2022-03-04 COLONOSCOPY SCREENING [facility] Test 14:03:57 [code = COLONOSCOPY SCREENING] Future Scheduled 2022-03-04 HEPATITIS B VACCINES Met [facility] Test 14:03:57 (1 of 3 - Risk 3-dose series) [code = HEPATITIS B VACCINES (1 of 3 - Risk 3-dose series)] Future Scheduled 2022-03-04 COVID-19 VACCINE (3 - [facility] Test 14:03:57 Booster for Pfizer series) [code = COVID-19 VACCINE (3 - Booster for Pfizer series)] Future Scheduled 2022-03-04 65+ PNEUMOCOCCAL [facility] Test 14:03:57 VACCINE (4 - PPSV23 if available, else PCV20) [code = 65+ PNEUMOCOCCAL VACCINE (4 - PPSV23 if available, else PCV20)] Future Scheduled 2022-03-04 INFLUENZA VACCINE Method [facility] Test 14:03:57 [code = INFLUENZA VACCINE] Future Scheduled 2022-03-04 SHINGLES VACCINES (1 Met [facility] Test 14:03:57 of 2) [code = SHINGLES VACCINES (1 of 2)] Future Scheduled 2022-03-04 BREAST CANCER [facility] Test 14:03:57 SCREENING [code = BREAST CANCER SCREENING] Future Scheduled 2022-03-04 COLONOSCOPY SCREENING [facility] Test 14:03:57 [code = COLONOSCOPY SCREENING] Future Scheduled 2022-03-04 HEPATITIS B VACCINES Met [facility] Test 14:03:57 (1 of 3 - Risk 3-dose series) [code = HEPATITIS B VACCINES (1 of 3 - Risk 3-dose series)] Future Scheduled 2022-03-04 COVID-19 VACCINE (3 - [facility] Test 14:03:57 Booster for Pfizer series) [code = COVID-19 VACCINE (3 - Booster for Pfizer series)] Future Scheduled 2022-03-04 65+ [facility] 14:03:57 VACCINE (4 - PPSV23 if available, else PCV20) [code = 65+ PNEUMOCOCCAL VACCINE (4 - PPSV23 if available, else PCV20)] Future Scheduled 2022-03-04 INFLUENZA VACCINE Method [facility] Test 14:03:57 [code = INFLUENZA VACCINE] Future Scheduled 2022-02-11 SHINGLES VACCINES (1 Met [facility] Test 13:39:12 of 2) [code = SHINGLES VACCINES (1 of 2)] Future Scheduled 2022-02-11 BREAST CANCER [facility] Test 13:39:12 SCREENING [code = BREAST CANCER SCREENING] Future Scheduled 2022-02-11 COLONOSCOPY SCREENING [facility] Test 13:39:12 [code = COLONOSCOPY SCREENING] Future Scheduled 2022-02-11 HEPATITIS B VACCINES Met [facility] Test 13:39:12 (1 of 3 - Risk 3-dose series) [code = HEPATITIS B VACCINES (1 of 3 - Risk 3-dose series)] Future Scheduled 2022-02-11 COVID-19 VACCINE (3 - [facility] Test 13:39:12 Booster for Pfizer series) [code = COVID-19 VACCINE (3 - Booster for Pfizer series)] Future Scheduled 2022-02-11 65+ [facility] Test 13:39:12 VACCINE (4 - PPSV23 or PCV20) [code = 65+ PNEUMOCOCCAL VACCINE (4 - PPSV23 or PCV20)] Future Scheduled 2022-02-11 INFLUENZA VACCINE Method [facility] Test 13:39:12 [code = INFLUENZA VACCINE] Future Scheduled 2022-01-29 SHINGLES VACCINES (1 Met [facility] Test 14:07:20 of 2) [code = SHINGLES VACCINES (1 of 2)] Future Scheduled 2022-01-29 BREAST CANCER [facility] Test 14:07:20 SCREENING [code = BREAST CANCER SCREENING] Future Scheduled 2022-01-29 COLONOSCOPY SCREENING [facility] Test 14:07:20 [code = COLONOSCOPY SCREENING] Future Scheduled 2022-01-29 HEPATITIS B VACCINES Met [facility] Test 14:07:20 (1 of 3 - Risk 3-dose series) [code = HEPATITIS B VACCINES (1 of 3 - Risk 3-dose series)] Future Scheduled 2022-01-29 COVID-19 VACCINE (3 - [facility] Test 14:07:20 Booster for Pfizer series) [code = COVID-19 VACCINE (3 - Booster for Pfizer series)] Future Scheduled 2022-01-29 65+ [facility]AL [facility] Test 14:07:20 VACCINE (4 - PPSV23 or PCV20) [code = 65+ PNEUMOCOCCAL VACCINE (4 - PPSV23 or PCV20)] Future Scheduled 2022-01-29 INFLUENZA VACCINE Method [facility] Test 14:07:20 [code = INFLUENZA VACCINE] Future Scheduled 2022-01-29 SHINGLES VACCINES (1 Met [facility] Test 14:07:20 of 2) [code = SHINGLES VACCINES (1 of 2)] Future Scheduled 2022-01-29 BREAST CANCER [facility] Test 14:07:20 SCREENING [code = BREAST CANCER SCREENING] Future Scheduled 2022-01-29 COLONOSCOPY SCREENING [facility] Test 14:07:20 [code = COLONOSCOPY SCREENING] Future Scheduled 2022-01-29 HEPATITIS B VACCINES Met [facility] Test 14:07:20 (1 of 3 - Risk 3-dose series) [code = HEPATITIS B VACCINES (1 of 3 - Risk 3-dose series)] Future Scheduled 2022-01-29 COVID-19 VACCINE (3 - [facility] Test 14:07:20 Booster for Pfizer series) [code = COVID-19 VACCINE (3 - Booster for Pfizer series)] Future Scheduled 2022-01-29 65+ PNEUMOCOCCAL [facility] Test 14:07:20 VACCINE (4 - PPSV23 or PCV20) [code = 65+ PNEUMOCOCCAL VACCINE (4 - PPSV23 or PCV20)] Future Scheduled 2022-01-29 INFLUENZA VACCINE Method [facility] Test 14:07:20 [code = INFLUENZA VACCINE] Future Scheduled 2022-01-29 SHINGLES VACCINES (1 Met [facility] Test 14:07:20 of 2) [code = SHINGLES VACCINES (1 of 2)] Future Scheduled 2022-01-29 BREAST CANCER [facility] Test 14:07:20 SCREENING [code = BREAST CANCER SCREENING] Future Scheduled 2022-01-29 COLONOSCOPY SCREENING [facility] Test 14:07:20 [code = COLONOSCOPY SCREENING] Future Scheduled 2022-01-29 HEPATITIS B VACCINES Met [facility] Test 14:07:20 (1 of 3 - Risk 3-dose series) [code = HEPATITIS B VACCINES (1 of 3 - Risk 3-dose series)] Future Scheduled 2022-01-29 COVID-19 VACCINE (3 - [facility] Test 14:07:20 Booster for Pfizer series) [code = COVID-19 VACCINE (3 - Booster for Pfizer series)] Future Scheduled 2022-01-29 65+ [facility]AL [facility] Test 14:07:20 VACCINE (4 - PPSV23 or PCV20) [code = 65+ PNEUMOCOCCAL VACCINE (4 - PPSV23 or PCV20)] Future Scheduled 2022-01-29 INFLUENZA VACCINE Method [facility] Test 14:07:20 [code = INFLUENZA VACCINE] Future Scheduled 2022-01-29 SHINGLES VACCINES (1 Met [facility] Test 14:07:20 of 2) [code = SHINGLES VACCINES (1 of 2)] Future Scheduled 2022-01-29 BREAST CANCER [facility] Test 14:07:20 SCREENING [code = BREAST CANCER SCREENING] Future Scheduled 2022-01-29 COLONOSCOPY SCREENING [facility] Test 14:07:20 [code = COLONOSCOPY SCREENING] Future Scheduled 2022-01-29 HEPATITIS B VACCINES Met [facility] Test 14:07:20 (1 of 3 - Risk 3-dose series) [code = HEPATITIS B VACCINES (1 of 3 - Risk 3-dose series)] Future Scheduled 2022-01-29 COVID-19 VACCINE (3 - [facility] Test 14:07:20 Booster for Pfizer series) [code = COVID-19 VACCINE (3 - Booster for Pfizer series)] Future Scheduled 2022-01-29 65+ PNEUMOCOCCAL [facility] Test 14:07:20 VACCINE (4 - PPSV23 or PCV20) [code = 65+ PNEUMOCOCCAL VACCINE (4 - PPSV23 or PCV20)] Future Scheduled 2022-01-29 INFLUENZA VACCINE Method [facility] Test 14:07:20 [code = INFLUENZA VACCINE] Future Scheduled 2022-01-20 SHINGLES VACCINES (1 Met [facility] Test 06:12:34 of 2) [code = SHINGLES VACCINES (1 of 2)] Future Scheduled 2022-01-20 Screening for [facility] Test 06:12:34 malignant neoplasm of cervix (procedure) [code = [id number]] Future Scheduled 2022-01-20 BREAST CANCER [facility] Test 06:12:34 SCREENING [code = BREAST CANCER SCREENING] Future Scheduled 2022-01-20 COLONOSCOPY SCREENING [facility] Test 06:12:34 [code = COLONOSCOPY SCREENING] Future Scheduled 2022-01-20 HEPATITIS B VACCINES Met [facility] Test 06:12:34 (1 of 3 - Risk 3-dose series) [code = HEPATITIS B VACCINES (1 of 3 - Risk 3-dose series)] Future Scheduled 2022-01-20 COVID-19 VACCINE (3 - [facility] Test 06:12:34 Booster for Pfizer series) [code = COVID-19 VACCINE (3 - Booster for Pfizer series)] Future Scheduled 2022-01-20 65+ PNEUMOCOCCAL [facility] Test 06:12:34 VACCINE (4 - PPSV23 or PCV20) [code = 65+ PNEUMOCOCCAL VACCINE (4 - PPSV23 or PCV20)] Future Scheduled 2022-01-20 INFLUENZA VACCINE Method [facility] Test 06:12:34 [code = INFLUENZA VACCINE] Future Scheduled 2022-01-16 SHINGLES VACCINES (1 Met [facility] Test 12:09:25 of 2) [code = SHINGLES VACCINES (1 of 2)] Future Scheduled 2022-01-16 Screening for [facility] Test 12:09:25 malignant neoplasm of cervix (procedure) [code = [id number]] Future Scheduled 2022-01-16 BREAST CANCER [facility] Test 12:09:25 SCREENING [code = BREAST CANCER SCREENING] Future Scheduled 2022-01-16 COLONOSCOPY SCREENING [facility] Test 12:09:25 [code = COLONOSCOPY SCREENING] Future Scheduled 2022-01-16 HEPATITIS B VACCINES Met [facility] Test 12:09:25 (1 of 3 - Risk 3-dose series) [code = HEPATITIS B VACCINES (1 of 3 - Risk 3-dose series)] Future Scheduled 2022-01-16 COVID-19 VACCINE (3 - [facility] Test 12:09:25 Booster for Pfizer series) [code = COVID-19 VACCINE (3 - Booster for Pfizer series)] Future Scheduled 2022-01-16 65+ PNEUMOCOCCAL [facility] Test 12:09:25 VACCINE (4 - PPSV23 or PCV20) [code = 65+ PNEUMOCOCCAL VACCINE (4 - PPSV23 or PCV20)] Future Scheduled 2022-01-16 INFLUENZA VACCINE Method [facility] Test 12:09:25 [code = INFLUENZA VACCINE] Future Scheduled 2022-01-14 SHINGLES VACCINES (1 Met [facility] Test 04:11:46 of 2) [code = SHINGLES VACCINES (1 of 2)] Future Scheduled 2022-01-14 Screening for [facility] Test 04:11:46 malignant neoplasm of cervix (procedure) [code = [id number]] Future Scheduled 2022-01-14 BREAST CANCER [facility] Test 04:11:46 SCREENING [code = BREAST CANCER SCREENING] Future Scheduled 2022-01-14 COLONOSCOPY SCREENING [facility] Test 04:11:46 [code = COLONOSCOPY SCREENING] Future Scheduled 2022-01-14 HEPATITIS B VACCINES Met [facility] Test 04:11:46 (1 of 3 - Risk 3-dose series) [code = HEPATITIS B VACCINES (1 of 3 - Risk 3-dose series)] Future Scheduled 2022-01-14 COVID-19 VACCINE (3 - [facility] Test 04:11:46 Booster for Pfizer series) [code = COVID-19 VACCINE (3 - Booster for Pfizer series)] Future Scheduled 2022-01-14 65+ PNEUMOCOCCAL [facility] Test 04:11:46 VACCINE (4 - PPSV23 or PCV20) [code = 65+ PNEUMOCOCCAL VACCINE (4 - PPSV23 or PCV20)] Future Scheduled 2022-01-14 INFLUENZA VACCINE Method [facility] Test 04:11:46 [code = INFLUENZA VACCINE] Future Scheduled 2021-08-26 Screening for [facility] Test 13:02:23 malignant neoplasm of cervix (procedure) [code = [id number]] Future Scheduled 2021-08-26 BREAST CANCER [facility] Test 13:02:23 SCREENING [code = BREAST CANCER SCREENING] Future Scheduled 2021-08-26 COLONOSCOPY SCREENING [facility] Test 13:02:23 [code = COLONOSCOPY SCREENING] Future Scheduled 2021-08-26 Screening for [facility] Test 13:02:23 malignant neoplasm of lung (procedure) [code = [id number]] Future Scheduled 2021-08-26 SHINGLES VACCINES (#1) [facility] Test 13:02:23 [code = SHINGLES VACCINES (#1)] Future Scheduled 2021-08-26 COVID-19 VACCINE (3 - [facility] Test 13:02:23 Pfizer risk 4-dose series) [code = COVID-19 VACCINE (3 - Pfizer risk 4-dose series)] Future Scheduled 2021-08-26 65+ PNEUMOCOCCAL [facility] Test 13:02:23 VACCINE (4 of 4 - PPSV23) [code = 65+ PNEUMOCOCCAL VACCINE (4 of 4 - PPSV23)] Future Scheduled 2021-08-26 INFLUENZA VACCINE Method [facility] Test 13:02:23 [code = INFLUENZA VACCINE] Encounters Start End Encounter Admission Attending Care Care Encounter Source Date/Time Date/Time Type Type Clinicians Facility Department ID 2022-02-18 Outpatient [facility] [id number] [place] 14:30:[address] [place] [address] [facility] 2021-[facility]-14 Outpatient SADIKOVIC, [facility] [id number] [place] 09:33:51 [facility] 2021-06-02 Outpatient HEMATPOUR, [facility] [id number] [place] 13:58:59 [facility] 2021-04-28 Outpatient [facility], [facility] [id number] [place] 11:21:22 [facility] 2021-03-20 Emergency [facility] [id number] [facility] Out[facility], [facility] [id number] [place] 08:16:46 [facility]ASHAY[facility] 2020-10-31 Outpatient [facility], [facility] [id number] [place] 09:44:50 KHMARCELOR Healt [facility] 2020-09-30 Outpatient [facility], [facility] [id number] [place] 13:16:[facility] 2022-05-08 2022-05-08 Emergency X VICK [facility] ERT [id number] Univers 16:18:00 18:42:00 [facility] 2022-05-08 2022-05-08 [facility] [id number] [id number] Univers 16:18:00 18:42:00 Theresa BULLOCK [id number] ity [facility] [place]7.[id number] [address] 2022-05-07 2022-05-07 Telephone [facility] 1.2.840.114 [id number] Univers 00:00:00 00:00:00 [facility] [id number] i ty of [facility] 4[place].7[place]2.[place] [id number] [address] 2022-05-06 2022-05-06 Emergency X EMMIE [facility] ERT [id number] Univers 14:13:00 18:19:00 [facility] 2022-05-06 2022-05-06 [facility] [id number] Univers 14:13:00 18:19:00 Anette CHAMBERSJEREMY 350.1.13.10 ity of [place] 4.2.7.2.686 [facility] [id number] [address] 2022-05-06 2022-05-06 Telephone JOSÉ ANTONIO Cardenas 1.2.840.114 [id number] Univers 00:00:00 00:00:00 [facility] [id number] i ty of [facility] 4.2.7.2.686 [facility] [id number] [address] 2022-04-22 2022-04-22 Emergency X [facility] ERT [id number] Univers 13:55:00 17:00:00 PAULETTE ity [facility] 2022-04-22 2022-04-22 Emergency [facility] [id number] Univers 13:55:00 17:00:00 Paulette BULLOCK 350.1.13.10 i ty of [place] 4.2.7.2.686 [facility] [phone] [address] 2022-04-07 2022-04-07 Outpatient R [facility] [id number] Univers 20:40:00 20:40:00 ATTENDING ity of [facility] 2022-04-07 2022-04-07 Telephone Devin, 1.2.840.7 [id number] Univers 00:00:00 00:00:00 Robbi Hairston 65851.1.1 i ty of 3.104.2.7 [place] .3.385650 Medica l .[place] 2022-03-05 2022-03-05 Beef C[employer] Santiago Cardenas 1.2.840.1 [id number] Univers 13:45:00 14:00:[address] [facility] 84976.1.1 ity of 3.104.2.7 [place] .3.897166 Medica l .8 [place] 2022-03-05 2022-03-05 Office JOSÉ ANTONIO Cardenas [id number] [id number] Univers 13:00:00 13:30:00 Visit [facility] 350.1.13.10 i ty of CLINICS 4.2.7.2.686 Richi bach [id number] [facility] 089 [place] 2022-03-05 2022-03-05 Outpatient R [facility] [id number] Univers 13:00:00 13:00:00 [facility] 2022-02-26 2022-02-26 Outpatient R [facility] [id number] Univers 08:30:00 08:30:00 [facility] 2022-02-26 2022-02-26 Outpatient R [facility] [id number] Univers 08:30:00 08:30:00 [facility] 2022-02-17 2022-02-17 Transition Stevo, 1.2.840.3 [id number] Univers 00:00:00 00:00:00 of Care Isaias Arredondo 01138.1.1 it y of 3.104.2.7 [place] .3.959257 Medica l .[address] [place] [address] 2022-02-10 2022-02-16 Inpatient X [facility] [id number] Univers 22:59:00 19:27:00 TOMY barbosa [facility] 2022-02-10 2022-02-16 Hospital Reilly Means 1.2.840.1 [id number] Univers 22:59:00 19:27:00 Encounter Ofe hSields 94381.1.1 ity of MarieTomy hairston 3.104.2.7 [place] .3.664401 Medica l .8 [place] 2022-02-11 2022-02-11 Telephone [facility], 1.2.840.8 [id number] Univers 00:00:00 00:00:00 Santiago 44048.1.1 ity of 3.104.2.7 [place] .3.466233 Medica l .8 [place] 2022-02-10 2022-02-10 Travel 1.2.840.1 [id number] [id number] Univers 00:00:00 00:00:00 82897.1.1 350.1.13.10 ity of 3.104.2.7 4[place].3.698 [place] .3.812774 084.8 Medica l .8 [place] 2022-01-30 2022-01-30 Telephone Ronald, 1.2.840.0 [id number] Univers 00:00:00 00:00:00 Santiago 76672.1.1 ity of 3.104.2.7 [place] .3.689959 Medica l .8 [place] 2022-01-06 2022-01-06 Orders Doctor FERMIN 1.2.840.114 [id number] Univers 00:00:00 00:00:00 Only Unassigned, JACKELINE 350.1.13.10 ity of [facility] 4.2.7.2.686 Yomi as [id number] [facility] 009 Branch 2021-12-25 2021-12-25 Orders Doctor CHRISTENSEN 1.2.840.114 [id number] Univers 00:00:00 00:00:00 Only Unassigned, JACKELINE 350.1.13.10 ity of [facility] 4.2.7.2.686 Yomi as [id number] [facility] 009 [place] 2021-12-12 2021-12-13 Emergency X Bill COLES [facility] ERT [id number] Univers 23:53:00 01:52:00 ity of [facility] 2021-12-12 2021-12-13 Emergency Bill Coles [facility] 1.2.840.114 [id number] Univers 23:53:00 01:52:00 Kiersten BULLOCK 350.1.13.10 i ty of [place] [id number] [facility] 084 Branch 2021-11-20 2021-11-[address] [facility] UNIVERSIT 1.2.840.114 [id number] Univers 09:45:00 10:00:00 Visit RonaldSantiago [facility] 350.1.13.10 ity of [place] 4[place] [id number] [facility] 316 [address] 2021-11-20 2021-11-20 Office [facility] UNIVERSIT [id number] Univers 08:30:00 09:00:00 Visit [facility] [id number] i ty of [facility] [id number] [facility] [phone] [place] [id number] [place] 2021-11-20 2021-11-20 Outpatient R [facility] [id number] Univers 08:30:00 08:30:00 [facility] 2021-11-20 2021-11-20 Outpatient R [facility] [id number] Univers 08:30:00 08:30:00 [facility] 2021-11-20 2021-11-20 Outpatient R [facility] [facility] [id number] Univers 08:30:00 08:30:00 [facility] 2021-11-20 2021-11-20 Outpatient R [facility] [id number] Univers 08:30:00 08:30:00 [facility] 2021-10-24 2021-10-24 Emergency X [facility], [facility] ERT [id number] Univers 16:27:00 22:26:00 [facility] 2021-10-24 2021-10-24 Emergency [facility] [id number] Univers 16:27:00 22:26:00 [facility] 2021-10-24 2021-10-24 Emergency Reilly Means [facility] 1.2.840. 114 [id number] Univers 16:27:00 22:26:00 Charity Mcallister 350.1.13.10 ity [facility] 4.2.7.2.686 [facility] [phone] [address] 2021-10-23 2021-10-24 Emergency X ESVIN [facility] ERT [id number] Univers 20:22:00 02:57:00 [facility] 2021-10-23 2021-10-24 [facility] 1.2.010.292 [id number] Univers 20:22:00 02:57:00 Charity BULLOCK 350.1.13.10 ity of [place] 4[place]2.7.2.686 [place] [facility] [phone] [facility] 084 [place] 2021-09-07 2021-09-07 Outpatient R [facility] [id number] Univers 08:00:00 08:00:00 GADIEL barbosa o f [facility] 2021-09-07 2021-09-07 Outpatient R SELF, [facility] [id number] Univers 08:00:00 08:00:00 GADIEL ity o [facility] 2021-08-21 2021-08-21 Outpatient R [facility] [id number] Univers 10:45:00 10:45:00 SANTIAGO [facility] 2021-08-21 2021-08-21 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 37265.1.1 ity of 3.104.2.7 [place] .3.571415 Medica l .8 [place] 2021-08-21 2021-08-21 Office [facility], 1.2.840.5 [id number] Univers 08:30:00 09:00:00 Visit Santiago 13951.1.1 ity of 3.104.2.7 [place] .3.377521 Medica l .8 [place] 2021-08-21 2021-08-21 Office [facility] 1.2.647.566 4332 8516 Univers 08:30:00 09:00:00 Visit [facility] 350.1.13.10 i ty of [facility] 4.2.7.2.686 [facility] [id number] [facility] 089 [place] 2021-08-21 2021-08-21 Outpatient R [facility] [id number] Univers 08:30:00 08:30:00 SANTIAGO charlie [facility] [place] [facility] 2021-08-21 2021-08-21 Travel 1.2.840.1 1.2.833.990 [id number] 3865 Univers 00:00:00 00:00:00 55957.1.1 350.1.13.10 ity of 3.104.2.7 4.[place]7.3.698 [place] .3.569025 084.8 Medica l .8 [place] 2021-08-14 2021-08-14 Telephone East, 1.2.840.2 [id number] Univers 00:00:00 00:00:00 Santiago 37606.1.1 ity of 3.104.2.7 [place] .3.255480 Medica l .8 Branch 2021-08-13 2021-08-13 Telephone East, 1.2.840.6 [id number] Univers 00:00:00 00:00:00 Santiago 44839.1.1 ity of 3.104.2.7 [place] .3.403637 Medica l .8 [place] 2021-08-11 2021-08-11 Outpatient [facility] [id number] Univers 08:00:00 08:00:00 [facility] 2021-08-05 2021-08-05 Inpatient Ashely, [facility] [id number] [facility] 05:24:00 05:24:00 Mike 31 [facility] 2021-07-20 2021-07-20 Outpatient [facility] [id number] Univers 10:00:00 10:00:00 [facility] 2021-07-14 2021-07-14 Office KIMBERLEY Lira 6400 1.2.840.114 13 [id number] [place] 08:45:00 09:34:[address] 350.1.13.58 Health 9.2.7.2.686 [id number] 1 2021-07-09 2021-07-09 Telephone [facility], UTP 6400 1.2.840.114 [id number] [place] 00:00:00 00:00:[address]aris [address] 350.1.13.58 Health 9.2.7.2.686 [id number] 1 2021-07-09 2021-07-09 Telephone [place], UTP 6400 1.2.840.114 [id number] [place] 00:00:00 00:00:00 Beverly RUIZ 350.1.13.58 Health 9.2.7.2.686 [id number] 1 2021-07-03 2021-07-03 Outpatient R EAST, [facility] [id number] Univers 08:00:00 08:00:00 SANTIAGO barbosa [facility] [place] [facility] 2021-06-17 2021-06-17 Inpatient RAUL Lund, HCACL INTE.02 [id number] [facility] 10:56:00 14:36:00 Mike 47 [facility] 2021-06-15 2021-06-15 Outpatient R SELF, [facility] [id number] Univers 10:15:00 11:07:21 GADIEL barbosa [facility] [place] [facility] 2021-06-15 2021-06-15 Outpatient R SELF, [facility] [id number] Univers 10:15:00 10:15:00 GADIEL vogel [facility] 2021-06-15 2021-06-15 Outpatient R SELF, [facility] [id number] Univers 10:15:00 10:15:00 GADIEL familia [facility] [place] [facility] 2021-06-15 2021-06-15 Orders Doctor 1.2.840.1 [id number] Univers 00:00:00 00:00:00 Only Unassigned, 51064.1.1 ity of [place] 3.104.2.7 [place] .3.367605 Medica l .8 [place] 2021-06-15 2021-06-15 Travel 1.2.840.1 1.2.414.557 8458 7719 Univers 00:00:00 00:00:00 87971.1.1 350.1.13.10 ity of 3.104.2.7 4.[place].7.3.698 [place] .3.070710 084.8 Medica l .8 [place] 2021-06-11 2021-06-11 Refill East, [facility]ERS[facility] 1.2.697.185 0055 9185 Univers 00:00:00 00:00:00 [facility] 350.1.13.10 i ty of CL[place] 4[place].2.[place] [phone] [facility] 089 [place] 2021-06-11 2021-06-11 Refill [place], 1.2.840.0 [id number] 185 Univers 00:00:00 00:00:00 Santiago 25670.1.1 ity of 3.104.2.7 [place] .3.700467 Medica l .8 [place] 2021-06-05 2021-06-05 Outpatient R [facility] [id number] Univers 09:00:00 09:00:00 SANTIAGO ity of [facility] 2021-06-02 2021-06-02 Telephone East, UN[facility]ERS[facility] 1.2.840.114 90 [id number] Univers 00:00:00 00:00:00 Santiago [facility] 350.1.13.10 i ty of CL[place] 4[place]2.7.2.[place] [id number] [place] 365259 [place] 2021-06-02 2021-06-02 Telephone East, 1.2.840.6 [id number] 903 [id number] Univers 00:00:00 00:00:00 Santiago 60304.1.1 ity of 3.104.2.7 [place] .3.535688 Medica l .8 [place] 2021-05-29 2021-05-29 Telephone East, 1.2.840.3 [id number] 902 48591 Univers 00:00:00 00:00:00 Santiago 88751.1.1 ity of 3.104.2.7 [place] .3.077620 Medica l .8 [place] 2021-05-29 2021-05-29 Telephone East, 1.2.840.7 [id number] 902 [id number] Univers 00:00:00 00:00:00 Santiago 11876.1.1 ity of 3.104.2.7 [place] .3.501388 Medica l .8 [place] 2021-05-25 2021-05-25 [facility] [id number] Univers 08:00:00 08:00:00 GADIEL rodas [facility] 2021-04-29 2021-04-29 Outpatient R LALA [facility] [id number] Univers 08:00:00 08:00:00 NIKOLAI familia [facility] [place] [facility] 2021-04-28 2021-04-28 Telephone KIMBERLEY De Souza 6400 1.2.840.114 [id number] [place] 00:00:00 00:00:[address] 350.1.13.58 Health 9.2.7.2.686 [id number] 1 2021-04-28 2021-04-28 Telephone Jailyn, 1.2.840.8 [id number] 21 [id number] Methodi 00:00:00 00:00:[address] 3.430.2.7 Hospit a .3.476183 l .8 2021-03-31 2021-03-31 Orders Carol Ann, 1.2.840.1 [id number] 21 [id number] Methodi 00:00:00 00:00:00 Only Sarai Lieberman 34831.1.1 979 s t 3.430.2.7 Hospit a .3.744491 l .8 2021-03-30 2021-03-30 [facility] [id number] Univers 08:45:00 08:45:00 GADIEL rodas [facility] 2021-03-24 2021-03-24 Telephone Jailyn, 1.2.840.0 [id number] 21 [id number] Methodi 00:00:00 00:00:[address] 3.430.2.7 Hospit a .3.833765 l .8 2021-02-13 2021-02-13 Telephone Ronald, 1.2.840.5 [id number] 876 69711 Univers 00:00:00 00:00:00 Santiago 17122.1.1 ity of 3.104.2.7 [place] .3.645234 Medica l .8 Branch 2021-01-28 2021-01-28 Outpatient [facility] [id number] Univers 08:45:00 09:37:00 NIKOLAI barbosa [facility] [place] [facility] 2021-01-282021-01-28 Travel 1.2.840.1 1.2.826.393 3823 9777 Univers 00:00:00 00:00:00 30199.1.1 350.1.13.10 ity of 3.104.2.7 4.[place].7.3.698 [place] .3.546276 084.8 Medica l .8 Branch 2021-01-19 2021-01-19 Telephone Prabhu, 1.2.840.1 [id number] 2100 947225 Method 00:00:00 00:00:[address] 3.430.2.7 Hospit a .3.670134 l .8 2021-01-04 2021-01-04 Dmitry Bass, 1.2.840.7 [id number] 35730 696 Univers 00:00:00 00:00:00 (Out) Dagoberto H 24035.1.1 ity of 3.104.2.7 [place] .3.815631 Medica l .8 Branch 2021-01-04 2021-01-04 Dmitry Bass, 1.2.840.0 [id number] 29608 696 Univers 00:00:00 00:00:00 (Out) Dagoberto H 25666.1.1 ity of 3.104.2.7 [place] .3.189280 Medica l .8 Branch 2021-01-03 2021-01-03 Dmitry Bass, 1.2.840.4 [id number] 94648 790 Univers 00:00:00 00:00:00 (Out) Dagoberto H 78235.1.1 ity of 3.104.2.7 [place] .3.540990 Medica l .8 Branch 2021-01-03 2021-01-03 Dmitry Bass, 1.2.840.9 [id number] 44987 790 Univers 00:00:00 00:00:00 (Out) Dagoberto H 94125.1.1 ity of 3.104.2.7 [place] .3.153737 Medica l .8 Branch 2021-01-02 2021-01-02 Outpatient R [facility] [id number] Univers 13:40:00 13:40:00 ity of [facility] 2021-01-02 2021-01-02 Laboratory Cuba Franks 1.2.840.3 [id number] [id number] Univers 12:14:13 12:57:34 Only Lab, Adc Fam Pob I 44401.1.1 ity of 3.104.2.7 [place] .3.391579 Medica l .8 [place] 2021-01-02 2021-01-02 Laboratory [place] Franks 1.2.840.7 [id number] [id number] Univers 12:14:13 12:57:34 Only Lab, Adc Fam Pob I 97419.1.1 ity of 3.104.2.7 [place] .3.073757 Medica l .8 [place] 2021-01-02 2021-01-02 Travel 1.2.840.1 1.2.684.100 1396 2306 Univers 00:00:00 00:00:00 56304.1.1 350.1.13.10 ity of 3.104.2.7 4.[place].7.3.698 [place] .3.772386 084.8 Medica l .8 [place] 2021-01-02 2021-01-02 Letter Doctor 1.2.840.1 [id number] 06477 948 Univers 00:00:00 00:00:00 (Out) Unassigned, 26138.1.1 ity of [place] 3.104.2.7 [place] .3.647407 Medica l .8 [place] 2021-01-02 2021-01-02 Letter Doctor 1.2.840.9 [id number] 946 Univers 00:00:00 00:00:00 (Out) Unassigned, 87110.1.1 ity of [place] 3.104.2.7 [place] .3.425477 Medica l .8 [place] 2021-01-02 2021-01-02 Travel 1.2.840.1 1.2.631.867 5191 2306 Univers 00:00:00 00:00:00 48191.1.1 350.1.13.10 ity of 3.104.2.7 4.2.7.3.698 [place] .3.602650 084.8 Medica l .8 [place] 2021-01-02 2021-01-02 Letter Doctor 1.2.840.9 [id number] 42368 948 Univers 00:00:00 00:00:00 (Out) Unassigned, 84318.1.1 ity of [place] 3.104.2.7 [place] .3.418741 Medica l .8 [place] 2021-01-02 2021-01-02 Letter Doctor 1.2.840.2 [id number] 70460 946 Univers 00:00:00 00:00:00 (Out) Unassigned, 00160.1.1 ity of [place] 3.104.2.7 [place] .3.900806 Medica l .8 [place] 2020-12-22 2020-12-22 Telephone Beltran, 1.2.840.9 [id number] 862 73490 Univers 00:00:00 00:00:00 Eligionda R 83368.1.1 i ty of 3.104.2.7 [place] .3.708258 Medica l .8 [place] 2020-12-22 2020-12-22 Telephone Beltran, 1.2.840.4 [id number] 862 46415 Univers 00:00:00 00:00:00 Rossandynda R 46769.1.1 i ty of 3.104.2.7 [place] .3.423537 Medica l .8 [place] 2020-12-12 2020-12-12 Office [facility], UTP 6400 1.2.840.114 12 [id number] [place] 07:42:02 08:18:[address] 350.1.13.58 Health 9.2.7.2.686 [id number] 1 2020-12-12 2020-12-12 Office [facility], UTP 6400 1.2.840.114 12 [id number] 07:42:02 08:18:[address] 350.1.13.58 9.2.7.2.686 [id number] 1 2020-12-09 2020-12-09 Telephone [facility], 1.2.840.1 [id number] Methodi 00:00:00 00:00:00 Sarai Lieberman 20358.1.1 316 s t 3.430.2.7 Hospit a .3.300531 l .8 2020-12-08 2020-12-08 [facility], 1.2.840.1 [id number] 2100 015884 Methodi 12:35:54 23:59:00 Encounter Ray [address]199.1.[address] 3.430.2.7 Hospit a .3.136830 l .8 2020-12-08 2020-12-08 Lab [facility], 1.2.840.1 [id number] 73651 00640 Methodi 17:25:00 17:30:[address] 3.430.2.7 Hospit a .3.286832 l .8 2020-12-08 2020-12-08 [facility], 1.2.840.1 [id number] 69424 73725 Methodi 10:30:00 11:39:56 Visit Ray 19873.1.[address] 3.430.2.7 Hospit a .3.339134 l .8 2020-12-08 2020-12-08 Travel 1.2.840.1 1.2.136.620 5434 073909 Methodi 00:00:00 00:00:[address] 3.430.2.7 0.2.7.3.698 Ho spita .3.412170 084.8 l .8 2020-12-02 2020-12-02 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 84399.1.1 ity of 3.104.2.7 [place] .3.125503 Medica l .8 Branch 2020-12-02 2020-12-02 Beef Cattle [employer] Santiago Cardenas 1.2.840.1 [id number] Univers 10:20:06 10:36:[address] [facility] 35255.1.1 ity of 3.104.2.7 [place] .3.452511 Medica l .8 [place] 2020-12-02 2020-12-[address] [facility] UNIVERSIT 1.2.840.114 8 [id number] 10:20:06 10:36:19 Visit [facility] 350.1.13.10 [facility] 4.2.7.2.686 [id number] 316 2020-12-02 2020-12-02 Office [facility], 1.2.840.1 [id number] 90425 528 Univers 08:31:37 09:01:37 Visit Santiago 16276.1.1 ity of 3.104.2.7 [place] .3.103589 Medica l .8 [place] 2020-12-02 2020-12-02 Outpatient R [facility] [id number] 304 Univers 09:00:00 09:00:00 SANTIAGO itcharlie of [facility] 2020-11-25 2020-11-25 Office Beltran, 1.2.840.2 [id number] 29251 865 Univers 11:06:30 11:58:14 Visit Eligiomeredith Hairston 44138.1.1 i ty of 3.104.2.7 [place] .3.985915 Medica l .8 [place] 2020-11-25 2020-11-25 Office Devin, 1.2.840.8 [id number] 37684 865 Univers 11:06:30 11:58:14 Visit Devinaleshia Hairston 06434.1.1 i ty of 3.104.2.7 [place] .3.549557 Medica l .8 [place] 2020-11-25 2020-11-25 Office [facility] 1.2.840.114 [id number] 11:06:30 11:58:14 Visit Robbi Hairston WIG MAKER 350.1.13.10 [facility] 4.2.7.2.686 MATERNAL [id number] & CHILD [address] [place] [address] 2020-11-25 2020-11-25 Outpatient R [facility] [id number] Univers 11:00:00 11:00:00 ity of [facility] 2020-11-25 2020-11-25 Telephone Beltran, 1.2.840.9 [id number] 855 43305 Univers 00:00:00 00:00:00 Devina R 98221.1.1 i ty of 3.104.2.7 [place] .3.816225 Medica l .8 Branch 2020-11-25 2020-11-25 Refill East, 1.2.840.6 [id number] 66181 592 Univers 00:00:00 00:00:00 Santiago 37288.1.1 ity of 3.104.2.7 [place] .3.324237 Medica l .8 Branch 2020-11-25 2020-11-25 Travel 1.2.840.1 1.2.220.501 6012 0247 Univers 00:00:00 00:00:00 80602.1.1 350.1.13.10 ity of 3.104.2.7 4.2.7.3.698 [place] .3.842313 084.8 Medica l .8 Branch 2020-11-25 2020-11-25 Orders Doctor 1.2.840.9 [id number] 78593 064 Univers 00:00:00 00:00:00 Only Unassigned, 58666.1.1 ity of [place] 3.104.2.7 [place] .3.689509 Medica l .8 Branch 2020-11-25 2020-11-25 Telephone Beltran, 1.2.840.3 [id number] 855 78536 Univers 00:00:00 00:00:00 Devina R 92064.1.1 i ty of 3.104.2.7 [place] .3.317773 Medica l .8 Branch 2020-11-25 2020-11-25 Refill East, 1.2.840.9 [id number] 14851 592 Univers 00:00:00 00:00:00 Santiago 15178.1.1 ity of 3.104.2.7 [place] .3.159412 Medica l .8 Branch 2020-11-25 2020-11-25 Travel 1.2.840.1 1.2.935.752 8198 0247 Univers 00:00:00 00:00:00 86985.1.1 350.1.13.10 ity of 3.104.2.7 4.2.7.3.698 [place] .3.633163 084.8 Medica l .8 Branch 2020-11-25 2020-11-25 Orders Doctor 1.2.840.4 [id number] 79957 064 Univers 00:00:00 00:00:00 Only Unassigned, 32847.1.1 ity of [place] 3.104.2.7 [place] .3.963699 Medica l .8 Branch 2020-11-25 2020-11-25 [facility] Ronald [facility] 1.2.757.834 9991 4592 00:00:00 00:00:00 [facility] 350.1.13.10 [facility] 4.2.7.2.686 [id number] 089 2020-11-25 2020-11-25 Telephone [facility] 1.2.073.502 1545 0821 00:00:00 00:00:00 Robbi Hairston W[employer]KER 350.1.13.10 [facility] 4.2.7.2.686 MATERNAL 182.4766652 & CHILD [address] [place] [address] 2020-11-14 2020-11-14 Abstract Clark, 1.2.840.1 [id number] 50822 33235 Methodi 00:00:00 00:00:[address] 3.430.2.7 Hospit a .3.229221 l .8 2020-11-14 2020-11-14 Telephone Clark 1.2.840.1 [id number] 2100 424117 Methodi 00:00:00 00:00:[address] 3.430.2.7 Hospit a .3.048514 l .8 2020-11-12 2020-11-12 [facility] [id number] Univers 08:30:00 08:30:00 SANTIAGO ity of [facility] 2020-11-07 2020-11-07 Telephone Agustina Ortiz UTP 6400 1.2.840.11 4 [id number] [place] 00:00:00 00:00:[address] 350.1.13.58 Health 9.2.7.2.686 [id number] 1 2020-11-07 2020-11-07 Telephone KIMBERLEY Ortiz 6400 1.2.840.114 124 [id number] 00:00:00 00:00:[address] 350.1.13.58 9.2.7.2.686 609.4765750 1 2020-10-31 2020-10-31 Office HematpourKIMBERLEY 6400 1.2.840.114 12 [id number] [place] 07:54:00 09:45:17 Visit Beverly ROMERO 350.1.13.58 Health 9.2.7.2.686 [id number] 1 2020-10-30 2020-10-30 Abstract Rody Maguire UTP 6400 1.2.840.1 14 [id number] [place] 00:00:00 00:00:[address] 350.1.13.58 Health 9.2.7.2.686 [id number] 1 2020-10-29 2020-10-29 Refill East, 1.2.840.4 [id number] 56746 400 Univers 00:00:00 00:00:00 Santiago 84368.1.1 ity of 3.104.2.7 [place] .3.788479 Medica l .8 Branch 2020-10-29 2020-10-29 Refill East, 1.2.840.5 [id number] 17959 400 Univers 00:00:00 00:00:00 Santiago 20973.1.1 ity of 3.104.2.7 [place] .3.753424 Medica l .8 Branch 2020-10-27 2020-10-27 Telephone Jailyn 1.2.840.7 [id number] 21 [id number] Methodi 00:00:00 00:00:[address] 3.430.2.7 Hospit a .3.372847 l .8 2020-10-24 2020-10-24 Telephone Rodas, 1.2.840.1 [id number] 2100 466749 Methodi 00:00:00 00:00:[address] 3.430.2.7 Hospit a .3.158924 l .8 2020-10-22 2020-10-22 Outpatient R SELF, [facility] [id number] 868 Univers 13:00:00 13:00:00 GADIEL vogel [facility] 2020-10-22 2020-10-22 Travel 1.2.840.1 1.2.844.877 5405 3839 Univers 00:00:00 00:00:00 58601.1.1 350.1.13.10 ity of 3.104.2.7 4.[place].7.3.698 [place] .3.452443 084.8 Medica l .8 [place] 2020-10-22 2020-10-22 Travel 1.2.840.1 1.2.909.194 1064 3839 Univers 00:00:00 00:00:00 77826.1.1 350.1.13.10 ity of 3.104.2.7 4.2.7.3.698 [place] .3.768713 084.8 Medica l .8 [place] 2020-10-13 2020-10-13 [facility] [id number] Univers 08:45:00 08:45:00 GADIEL vogel [facility] 2020-10-06 2020-10-12 Telemedici Jailyn, 1.2.840.1 [id number] 21 [id number] Methodi 15:30:00 00:08:46 ne Ray 20784.1.[address] 3.430.2.7 Hospit a .3.073113 l .8 2020-09-30 2020-09-30 Telephone Jailyn, 1.2.840.2 [id number] 21 [id number] Methodi 00:00:00 00:00:[address] 3.430.2.7 Hospit a .3.986114 l .8 2020-09-21 2020-09-21 Travel 1.2.840.1 1.2.870.522 2456 895755 Methodi 00:00:00 00:00:[address] 3.430.2.7 0.2.7.3.698 Ho spita .3.960028 084.8 l .8 2020-09-06 2020-09-06 [facility] 1.2.840.1 [id number] 21000 68426 Methodi 17:42:30 23:59:[address] 3.430.2.7 Hospit a .3.540419 l .8 2020-09-06 2020-09-06 [facility], 1.2.840.1 [id number] 2100 950426 Methodi 16:50:00 17:41:00 Encounter Ray [address]993.1.[address] 3.430.2.7 Hospit a .3.188273 l .8 2020-09-05 2020-09-05 [facility], 1.2.840.1 [id number] 2099 726102 Methodi 09:17:00 19:45:00 Encounter Ray [address]65.1.[address] 3.430.2.7 Hospit a .3.106621 l .8 2020-09-05 2020-09-05 Surgery [facility], 1.2.840.1 [id number] 39055 Methodi 11:30:00 13:15:[address] 3.430.2.7 Hospit a .3.993341 l .8 2020-09-05 2020-09-05 Anesthesia [facility], 1.2.840.1 [id number] 937 [id number] Methodi 11:27:00 12:20:00 Event Saraswathi 77258.1.1 243 s t V. 3.430.2.7 Hospit a .3.942858 l .8 2020-09-05 2020-09-05 Travel 1.2.840.1 1.2.107.559 1336 075211 Methodi 00:00:00 00:00:[address] 3.430.2.7 0.2.7.3.698 Ho spita .3.947640 084.8 l .8 2020-09-04 2020-09-04 Telephone [place], 1.2.840.1 [id number] Methodi 00:00:00 00:00:00 Sarai Corbin. 58500.1.1 762 s t 3.430.2.7 Hospit a .3.588455 l .8 2020-09-02 2020-09-02 Telephone [place], 1.2.840.6 [id number] Methodi 00:00:00 00:00:00 Sarai Corbin. 34353.1.1 344 s t 3.430.2.7 Hospit a .3.747052 l .8 2020-08-29 2020-08-30 Bedded [facility] [id number] [facility] 10:20:00 14:10:00 Outpatient r [place] 00 [facility] 2020-08-29 2020-08-30 Outpatient [facility], [facility] CAR 7500 [facility] 05:20:00 09:10:00 [place] 2020-08-06 2020-08-06 Office [place], 1.2.840.5 [id number] Univers 08:03:23 09:17:49 Visit [place] 02133.1.1 ity 3.104.2.7 [place] .3.715055 Medica l .8 [place] 2020-08-06 2020-08-06 Outpatient R [facility] [id number] Univers 08:30:00 08:30:00 SANTIAGO barbosa of [facility] 2020-07-14 2020-07-14 Outpatient R [facility] [id number] Univers 09:30:00 09:30:00 GADIEL barbosa o f [facility] 2020-07-14 2020-07-14 Travel 1.2.840.1 1.2.998.781 [id number] Univers 00:00:00 00:00:00 40556.1.1 350.1.13.10 ity of 3[place]104.2.[place].3.698 [place] .3.146196 084.8 Medica l .8 [place] 2020-07-14 2020-07-14 Orders Doctor 1.2.840.9 [id number] Univers 00:00:00 00:00:00 Only Unassigned, 82413.1.1 ity of [place] 3.104.2.7 [place] .3.892241 Medica l .8 [place] 2020-06-16 2020-06-16 Outpatient R [facility] [id number] Univers 08:00:00 08:00:00 GADIEL barbosa o f [facility] 2020-06-06 2020-06-06 Telephone [facility], 1.2.840.8 [id number] Univers 00:00:00 00:00:00 [place] 06704.1.1 ity of 3.104.2.7 [place] .3.905185 Medica l .8 [place] 2020-06-04 2020-06-04 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 59386.1.1 ity of 3.104.2.7 [place] .3.165067 Medica l .8 [place] 2020-06-04 2020-06-04 [facility]32.938 [id number] Univers 08:13:41 09:28:25 Visit [place] [facility] 350.1.13.10 i ty of [place] 329.8339679 [facility] 089 [place] 2020-06-04 2020-06-04 Outpatient R [facility] [id number] Univers 08:30:00 08:30:00 SANTIAGO barbosa of [facility] 2020-06-04 2020-06-04 Orders Doctor 1.2.840.7 [id number] Univers 00:00:00 00:00:00 Only Unassigned, 05339.1.1 ity of [place] 3.104.2.7 [place] .3.642376 Medica l .8 [place] 2020-05-19 2020-05-19 Telephone [place], 1.2.840.5 [id number] Univers 00:00:00 00:00:00 [place] 73736.1.1 ity of 3.104.2.7 [place] .3.290695 Medica l .8 [place] 2020-04-24 2020-04-24 Telephone [place], 1.2.840.5 [id number] Univers 00:00:00 00:00:00 [place] 78126.1.1 ity of 3.104.2.7 [place] .3.251341 Medica l .8 [place] 2020-04-14 2020-04-14 Outpatient [facility] [id number] Univers 09:00:00 09:00:00 SANTIAGO ity [facility] [place] [facility] 2020-04-14 2020-04-14 Telephone [place], 1.2.840.5 [id number] Univers 00:00:00 00:00:00 [place] 38765.1.1 ity of 3.104.2.7 [place] .3.599184 Medica l .8 [place] 2020-03-31 2020-03-31 Outpatient R [facility] [id number] Univers 08:30:00 08:30:00 SANTIAGO y [facility] [place] [facility] 2020-03-03 2020-03-03 Outpatient R SELF, [facility] [id number] Univers 08:00:00 08:00:00 GADIEL macielcharlie o f [facility] 2020-03-03 2020-03-03 Outpatient R SELF, [facility] [id number] Univers 08:00:00 08:00:00 GADIEL barbosa o f [facility] 2020-03-03 2020-03-03 Travel 1.2.840.1 1.2.394.301 [id number] Univers 00:00:00 00:00:00 14475.1.1 350.1.13.10 ity of 3.104.2.7 [place].3.698 [place] .3.068266 084.8 Medica l .8 [place] 2020-02-06 2020-02-06 Telephone [place], 1.2.840.6 [id number] Univers 00:00:00 00:00:00 [place] 11537.1.1 ity of 3.104.2.7 [place] .3.618291 Medica l .8 [place] 2020-01-26 2020-01-26 Emergency [place], 1.2.840.8 [id number] Univers 10:03:00 13:05:00 Cynise 54488.1.1 ity of 3.104.2.7 [place] .3.937976 Medica l .8 [place] 2020-01-26 2020-01-26 Travel 1.2.840.1 1.2.660.942 [id number] Univers 00:00:00 00:00:00 65272.1.1 350.1.13.10 ity of 3.104.2.7 [place].3.698 [place] .3.097765 084.8 Medica l .8 [place] 2020-01-25 2020-01-25 Outpatient R [facility] [id number] Univers 08:30:00 08:30:00 SANTIAGO ity of [facility] 2020-01-25 2020-01-25 Telemedici [place], 1.2.840.5 [id number] Univers 07:36:49 08:06:49 ne Visit [place] 22355.1.1 ity of 3.104.2.7 [place] .3.286584 [facility] [place] 2020-01-16 2020-01-16 Outpatient R [facility] [id number] Univers 08:00:00 08:00:00 SANTIAGO ity of [facility] 2020-01-16 2020-01-16 Telephone East, 1.2.840.8 [id number] Univers 00:00:00 00:00:00 [place] 74740.1.1 ity of 3.104.2.7 [place] .3.487550 [facility] [place] 2020-01-14 2020-01-14 Outpatient R SELF, [facility] [id number] Univers 08:00:00 08:00:00 GADIEL rodas [facility] 2019-12-31 2019-12-31 Outpatient R SELF, [facility] [id number] Univers 08:45:00 08:45:00 GADIEL rodas [facility] 2019-10-17 2019-10-17 Outpatient R [facility], [facility] [id number] Univers 08:30:00 08:30:00 SANTIAGO barbosa [facility] [place] [facility] 2019-10-12 2019-10-12 Outpatient R [facility], [facility] [id number] Univers 13:00:00 13:00:00 SANTIAGO barbosa [facility] [place] [facility] 2019-10-12 2019-10-12 Telemedici East, 1.2.840.9 [id number] Univers 07:38:30 08:08:30 ne Visit [place] 24570.1.1 ity of 3.104.2.7 [place] .3.927064 [facility] [place] 2019-10-08 2019-10-08 Outpatient R SELF, [facility] [id number] Univers 10:15:00 10:15:00 GADIEL rodas [facility] 2019-10-03 2019-10-03 Case Assman, 1.2.840.1 [id number] Univers 00:00:00 00:00:00 Management Michael Corbin 66543.1.1 i ty of 3.104.2.7 [place] .3.224576 [facility] [place] 2019-09-27 2019-09-27 Telephone East, 1.2.840.6 [id number] Univers 00:00:00 00:00:00 [place] 69649.1.1 ity of 3.104.2.7 [place] .3.719510 [facility] [place] 2019-09-04 2019-09-04 Refill East, 1.2.840.9 [id number] Univers 00:00:00 00:00:00 [place] 45754.1.1 ity of 3.104.2.7 [place] .3.237961 [facility] [place] 2019-07-24 2019-07-24 Outpatient R [facility], [facility] [id number] Univers 08:30:00 08:30:00 SANTIAGO ity [facility] [place] [facility] 2019-07-17 2019-07-17 Outpatient R [facility], [facility] [id number] Univers 10:00:00 10:00:00 SANTIAGO itcharlie [facility] [place] [facility] 2019-06-15 2019-06-15 Telephone East, 1.2.840.8 [id number] Univers 00:00:00 00:00:00 [place] 53152.1.1 ity of 3.104.2.7 [place] .3.057823 [facility] [place] 2019-06-13 2019-06-13 Telephone Team, [facility] 1.2.840.8 [id number] Univers 00:00:00 00:00:00 Health 69993.1.1 [place] .3.627[place] [facility] [place] [facility] [place] 2019-05-10 2019-05-10 Refill Ronald, 1.2.840.3 [id number] Univers 00:00:00 00:00:00 [place] 21463.1.1 ity of 3.104.2.7 [place] .3.649882 [facility] [place] 2019-05-09 2019-05-09 Refill Ronald, 1.2.840.7 [id number] Univers 00:00:00 00:00:00 [place] 18243.1.1 ity of 3.104.2.7 [place] .3.108109 [facility] [place] 2019-04-30 2019-04-30 Outpatient R SELF, [facility] [id number] Univers 10:15:00 10:33:05 GADIEL barbosa o f [facility] 2019-04-18 2019-04-18 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 05529.1.1 ity of 3.104.2.7 [place] .3.530530 [facility] [place] 2019-04-18 2019-04-18 Outpatient R [facility], [facility] [id number] Univers 10:00:00 10:44:31 SANTIAGO ity of [facility] 2019-04-18 2019-04-18 Office East, 1.2.840.5 [id number] Univers 08:27:44 09:53:27 Visit [place] 60928.1.1 ity of 3.104.2.7 [place] .3.713456 [facility] [place] 2019-04-18 2019-04-18 Orders Doctor 1.2.840.6 [id number] Univers 00:00:00 00:00:00 Only Unassigned, 80400.1.1 ity of [place] 3.104.2.7 [place] .3.610969 [facility] [place] 2019-04-11 2019-04-11 Refill East, 1.2.840.8 [id number] Univers 00:00:00 00:00:00 [place] 55659.1.1 ity of 3.104.2.7 [place] .3.535685 [facility] [place] 2019-04-09 2019-04-09 Refill East, 1.2.840.0 [id number] Univers 00:00:00 00:00:00 [place] 12374.1.1 ity of 3.104.2.7 [place] .3.968396 [facility] [place] 2019-04-03 2019-04-03 Telephone Team, [facility] 1.2.840.3 [id number] Univers 00:00:00 00:00:00 Health 63390.1.1 [place] .3.400949 [facility] [place] 2019-03-27 2019-03-27 Telephone Self, 1.2.840.3 [id number] Univers 00:00:00 00:00:00 Gadiel 82430.1.1 ity of 3.104.2.7 [place] .3.099427 [facility] [place] 2019-01-17 2019-01-17 Office East, 1.2.840.0 [id number] Univers 07:37:21 10:32:51 Visit [place] 85188.1.1 ity of 3.104.2.7 [place] .3.340045 Medica l .[facility] 2019-01-04 2019-01-12 Office Eveline Hansen 1.2.840.1 [id number] Univers 11:19:32 11:08:05 Visit Mariela 42062.1.1 ity of 3.104.2.7 [place] .3.724990 [facility] 2019-01-10 2019-01-10 Telephone Stanislav, 1.2.840.7 [id number] Univers 00:00:00 00:00:00 Eladio Inman 94553.1.1 ity of 3.104.2.7 [place] .3.758569 [facility] 2018-12-18 2018-12-18 Office Geraldine 1.2.840.6 [id number] Univers 08:48:45 09:13:43 Visit Ledya 58866.1.1 it y of 3.104.2.7 [place] .3.307535 [facility] .[facility] 2018-10-30 2018-10-30 Telephone [facility], 1.2.840.9 [id number] Univers 00:00:00 00:00:00 [place] 08844.1.1 ity of 3.104.2.7 [place] .3.975057 Medica l .8 [facility] 2018-10-23 2018-10-23 Orders Doctor 1.2.840.6 [id number] Univers 00:00:00 00:00:00 Only Unassigned, 70654.1.1 ity of [place] 3.104.2.7 [place] .3.692981 [facility]ica l .[facility] 2018-10-23 2018-10-23 Nurse Selvin, 1.2.840.3 [id number] Univers 00:00:00 00:00:00 Triage Stefanie 33951.1.1 ity of 3.104.2.7 [place] .3.544343 Medica l .[facility] 2018-10-23 2018-10-23 Telephone Self, 1.2.840.0 [id number] Univers 00:00:00 00:00:00 Gadiel 05829.1.1 ity of 3.104.2.7 [place] .3.268589 Medica l .8 [facility] 2018-10-20 2018-10-20 Telephone Self, 1.2.840.6 [id number] Univers 00:00:00 00:00:00 Gadiel 16800.1.1 ity of 3.104.2.7 [place] .3.363863 Medica l .8 [facility] Results Test Description Test Time Test Comments Results Result Comments Source COMP. METABOLIC PANEL (86061) 2022-05-06 22:42:55 Test Item Value Reference Range Interpretation Comme nts NA (test code = 5425292983) 137 mmol/L 135-145 K (test code = 2869376199) 3.2 mmol/L 3.5-5.0 L CL (test code = 4114371541) 100 mmol/L 98-108 CO2 TOTAL (test code = 7490540729) 23 mmol/L 23-31 AGAP (test code = 9188343925) 2-16 BUN (test code = 2663857991) 41 mg/dL 7-23 H GLUCOSE (test code = 1291177277) 98 mg/dL 70-110 CREATININE (test code = 1.55 mg/dL 0.50-1.04 H 5950018651) TOTAL BILI (test code = 0.8 mg/dL 0.1-1.4 9433223789) CALCIUM (test code = 4806884585) 8.3 mg/dL 8.6-10.6 L T PROTEIN (test code = 4898602353) 6.9 g/dL 6.3-8.2 ALBUMIN (test code = 0859670650) 3.9 g/dL 3.5-5.0 ALK PHOS (test code = 5745662533) 89 U/L 34-122 ALTv (test code = 1742-6) 101 U/L 5-35 H AST(SGOT) (test code = 3804282216) 203 U/L 13-40 H eGFR (test code = 0560076934) mL/min/1.73m2 KYLE (test code = KYLE) Association [...] tests). Lab Interpretation (test code = Abnormal 65920-5) [facility] WITH [id number] 22:33:52 Test Item Value Reference Range Interpretation Comments WBC (test code = See_Comment L [Automated 7106-2) message] The sy stem which generated this result transmitted reference range : 4.30 - 11.10 10*3/?L. The reference range was not used to interpret this result as normal/abnormal . RBC (test code = See_Comment [Automated 285-1) message] The sy stem which generated this [...] RDW-SD (test code = 46.3 fL 39.0-49.9 04300-1) RDW-CV (test code = 13.5 % 12.0-15.5 788-0) PLT (test code = See_Comment L [Automated 777-3) message] The sy stem which generated this result transmitted reference range : 166 - 358 10*3/ ?L. The reference r abbey was not used to interpret this result as normal/abnormal . MPV (test code = 9.5 fL 9.5-12.9 69722-6) NRBC/100 WBC (test See_Comment [Automat ed code = 9155845194) message] The system which generated this result transmitted reference range : 0.0 - 10.0 /100 WBCs. The refer ence range was not u sed to interpret th is result as normal/abnormal . NRBC x10^3 (test code See_Comment [Auto mated = 6716229704) message] The s ystem which generated this result transmitted reference range : 10*3/?L. The reference range was not used to interpret this result as normal/abnormal . GRAN MAT (NEUT) % 58.3 % (test code = 770-8) IMM GRAN % (test code 0.80 % = 2453297829) LYMPH % (test code = 28.1 % 736-9) MONO % (test code = 12.0 % 5905-5) EOS % (test code = 0.5 % 713-8) BASO % (test code = 0.3 % 706-2) GRAN MAT x10^3(ANC) 2.29 10*3/uL 1.88-7.09 (test code = 6559459868) IMM GRAN x10^3 (test 0.03 10*3/uL 0.00-0.06 code = 0203099701) LYMPH x10^3 (test code 1.10 10*3/uL 1.32-3.29 L = 731-0) MONO x10^3 (test code 0.47 10*3/uL 0.33-0.92 = 742-7) EOS x10^3 (test code = 0.03-0.39 L 711-2) BASO x10^3 (test code 0.01-0.07 = 704-7) Lab Interpretation Abnormal (test code = 09573-4) [facility] METABOLIC PANEL (NA, K, CL, CO2, GLUCOSE, BUN, CREATININE, CA)2022-04-22 21:43:42 Test Item Value Reference Range Interpretation Comments NA (test code = 142 mmol/L 135-145 4912816955) K (test code = 3.5 mmol/L 3.5-5.0 9826014378) CL (test code = 106 mmol/L 98-108 7868559897) CO2 TOTAL (test code = 26 mmol/L 23-31 5229247546) AGAP (test code = 2-16 1476764051) BUN (test code = 29 mg/dL 7-23 H 0526837842) GLUCOSE (test code = 84 mg/dL 70-110 6884407992) CREATININE (test code = 1.16 mg/dL 0.50-1.04 H 0561390793) CALCIUM (test code = 8.2 mg/dL 8.6-10.6 L 5564247198) eGFR (test code = mL/min/1.73m2 5765292306) KYLE (test code = KYLE) Association of [...] tests). Lab Interpretation Abnormal (test code = 57805-8) [facility] WITH [id number] 21:33:01 Test Item Value Reference Range Interpretation [...] (test code = 50.7 fL 39.0-49.9 H 76559-7) RDW-CV (test code = 14.6 % 12.0-15.5 788-0) PLT (test code = See_Comment L [Automated 777-3) message] The sy stem which generated this result transmitted reference range : 166 - 358 10*3/ ?L. The reference r abbey was not used to interpret this result as normal/abnormal . MPV (test code = 8.8 fL 9.5-12.9 L 45740-2) NRBC/100 WBC (test See_Comment [Automat ed code = 8333017851) message] The system which generated this result transmitted reference range : 0.0 - 10.0 /100 WBCs. The refer ence range was not u sed to interpret th is result as normal/abnormal . NRBC x10^3 (test code See_Comment [Auto mated = 7345889906) message] The s ystem which generated this result transmitted reference range : 10*3/?L. The reference range was not used to interpret this result as normal/abnormal . GRAN MAT (NEUT) % 70.9 % (test code = 770-8) IMM GRAN % (test code 0.50 % = 1190358139) LYMPH % (test code = 17.4 % 736-9) MONO % (test code = 9.0 % 5905-5) EOS % (test code = 1.7 % 713-8) BASO % (test code = 0.5 % 706-2) GRAN MAT x10^3(ANC) 4.60 10*3/uL 1.88-7.09 (test code = 5834190934) IMM GRAN x10^3 (test 0.03 10*3/uL 0.00-0.06 code = 0930094960) LYMPH x10^3 (test code 1.13 10*3/uL 1.32-3.29 L = 731-0) MONO x10^3 (test code 0.58 10*3/uL 0.33-0.92 = 742-7) EOS x10^3 (test code = 0.11 10*3/uL 0.03-0.39 711-2) BASO x10^3 (test code 0.03 10*3/uL 0.01-0.07 = 704-7) Lab Interpretation Abnormal (test code = 05578-4) [id number]07 Test Item Value Reference Range Interpretation Comments Blood Culture-Aerobic No organisms No growth Previo us (test code = 61022-4) isolated prelim inary verified result was Culture [...] Culture-Anaerobic isolated preliminar y (test code = 81054-6) verifi ed result was Culture In Progress [...] CDT Lab Interpretation Normal (test code = 22403-3) [facility] CULTURE [id number] 06:01:07 Test Item Value Reference Range Interpretation Comments Blood Culture-Aerobic No organisms No growth Previo us (test code = 35804-2) isolated prelim inary verified result was Culture [...] Culture-Anaerobic isolated preliminar y (test code = 94868-5) verifi ed result was Culture In Progress [...] CDT Lab Interpretation Normal (test code = 51696-0) [facility] CULTURE [id number] 06:01:07 Test Item Value Reference Range Interpretation Comments Blood Culture-Aerobic No organisms No growth Previo us (test code = 50838-9) isolated prelim inary verified result was Culture [...] Culture-Anaerobic isolated preliminar y (test code = 14835-7) verifi ed result was Culture In Progress [...] CDT Lab Interpretation Normal (test code = 69225-2) [id number] 10:49:10 Test Item Value Reference Range Interpretation Comments NT-proBNP (test code 2660 pg/mL See_Comment H [Autom ated = 1339002163) message] The system which generated this result transmitted reference range : <=125. The reference range was not used to interpret this result as normal/abnormal . KYLE (test code = KYLE) Biotin has been reported to cause a negative bias, interpret results relative to patient's use of biotin. Lab Interpretation Abnormal (test code = 26745-5) [id number] 10:49:10 Test Item Value Reference Range Interpretation Comments NT-proBNP (test code 2660 pg/mL See_Comment H [Autom ated = 8522243139) message] The system which generated this result transmitted reference range : <=125. The reference range was not used to interpret this result as normal/abnormal . KYLE (test code = KYLE) Biotin has been reported to cause a negative bias, interpret results relative to patient's use of biotin. Lab Interpretation Abnormal (test code = 04684-5) [facility] (NA, K, CL, CO2, GLUCOSE, BUN, CREATININE, CA)2022-02-15 10:44:07 Test Item Value Reference Range Interpretation Comments NA (test code = 134 mmol/L 135-145 L 7592099653) K (test code = 3.2 mmol/L 3.5-5 L 0727069110) CL (test code = 98 mmol/L 98-108 3239251081) CO2 TOTAL (test code = 27 mmol/L 23-31 4542890423) AGAP (test code = 2-16 4240183095) BUN (test code = 19 mg/dL 7-23 8474219934) GLUCOSE (test code = 102 mg/dL 70-110 6653782133) CREATININE (test code = 0.95 mg/dL 0.5-1.04 9314359898) CALCIUM (test code = 8.5 mg/dL 8.6-10.6 L 6052387920) eGFR (test code = mL/min/1.73m2 1478134571) KYLE (test code = KYLE) Association of [...] tests). Lab Interpretation Abnormal (test code = 06735-8) [facility]2022-09-26 10:44:07 Test Item Value Reference Range Interpretation Comments MAGNESIUM (test code = 5921815770) 1.8 mg/dL 1.7-2.4 Lab Interpretation (test code = Normal 62010-5) [facility]2022-09-26 10:44:07 Test Item Value Reference Range Interpretation Comments MAGNESIUM (test code = 5257415824) 1.8 mg/dL 1.7-2.4 Lab Interpretation (test code = Normal 10881-3) [facility] METABOLIC PANEL (NA, K, CL, CO2, GLUCOSE, BUN, CREATININE, CA)2022-02-15 10:44:07 Test Item Value Reference Range Interpretation Comments NA (test code = 134 mmol/L 135-145 L 7139738277) K (test code = 3.2 mmol/L 3.5-5.0 L 2439059110) CL (test code = 98 mmol/L 98-108 1132625009) CO2 TOTAL (test code = 27 mmol/L 23-31 8616667334) AGAP (test code = 2-16 1727039661) BUN (test code = 19 mg/dL 7-23 7015929900) GLUCOSE (test code = 102 mg/dL 70-110 8716044073) CREATININE (test code = 0.95 mg/dL 0.50-1.04 4933383240) CALCIUM (test code = 8.5 mg/dL 8.6-10.6 L 4309779209) eGFR (test code = mL/min/1.73m2 2177956853) KYLE (test code = KYLE) Association of [...] tests). Lab Interpretation Abnormal (test code = 80123-0) [facility] WITH [id number] 10:12:06 Test Item Value Reference Range Interpretation [...] RDW-SD (test code = 47.8 fL 39-49.9 31550-0) RDW-CV (test code = 15.2 % 12-15.5 788-0) PLT (test code = See_Comment L [Automated 777-3) message] The sy stem which generated this result transmitted reference range : 166 - 358 10*3/ ?L. The reference r abbey was not used to interpret this result as normal/abnormal . MPV (test code = 8.9 fL 9.5-12.9 L 22880-2) NRBC/100 WBC (test See_Comment [Automat ed code = 7797550718) message] The system which generated this result transmitted reference range : 0.0 - 10.0 /100 WBCs. The refer ence range was not u sed to interpret th is result as normal/abnormal . NRBC x10^3 (test code See_Comment [Auto mated = 3882063185) message] The s ystem which generated this result transmitted reference range : 10*3/?L. The reference range was not used to interpret this result as normal/abnormal . GRAN MAT (NEUT) % 65.9 % (test code = 770-8) IMM GRAN % (test code 0.30 % = 0812879892) LYMPH % (test code = 21.0 % 736-9) MONO % (test code = 10.1 % 5905-5) EOS % (test code = 2.4 % 713-8) BASO % (test code = 0.3 % 706-2) GRAN MAT x10^3(ANC) 2.49 10*3/uL 1.88-7.09 (test code = 4610924130) IMM GRAN x10^3 (test 0-0.06 code = 6889133694) LYMPH x10^3 (test code 0.79 10*3/uL 1.32-3.29 L = 731-0) MONO x10^3 (test code 0.38 10*3/uL 0.33-0.92 = 742-7) EOS x10^3 (test code = 0.09 10*3/uL 0.03-0.39 711-2) BASO x10^3 (test code 0.01-0.07 = 704-7) Lab Interpretation Abnormal (test code = 34696-4) [facility] WITH [id number] 10:12:06 Test Item Value Reference Range Interpretation [...] RDW-SD (test code = 47.8 fL 39.0-49.9 21272-6) RDW-CV (test code = 15.2 % 12.0-15.5 788-0) PLT (test code = See_Comment L [Automated 777-3) message] The sy stem which generated this result transmitted reference range : 166 - 358 10*3/ ?L. The reference r abbey was not used to interpret this result as normal/abnormal . MPV (test code = 8.9 fL 9.5-12.9 L 70518-8) NRBC/100 WBC (test See_Comment [Automat ed code = 1953131557) message] The system which generated this result transmitted reference range : 0.0 - 10.0 /100 WBCs. The refer ence range was not u sed to interpret th is result as normal/abnormal . NRBC x10^3 (test code See_Comment [Auto mated = 4308817619) message] The s ystem which generated this result transmitted reference range : 10*3/?L. The reference range was not used to interpret this result as normal/abnormal . GRAN MAT (NEUT) % 65.9 % (test code = 770-8) IMM GRAN % (test code 0.30 % = 6280102735) LYMPH % (test code = 21.0 % 736-9) MONO % (test code = 10.1 % 5905-5) EOS % (test code = 2.4 % 713-8) BASO % (test code = 0.3 % 706-2) GRAN MAT x10^3(ANC) 2.49 10*3/uL 1.88-7.09 (test code = 6397922297) IMM GRAN x10^3 (test 0.00-0.06 code = 4222286014) LYMPH x10^3 (test code 0.79 10*3/uL 1.32-3.29 L = 731-0) MONO x10^3 (test code 0.38 10*3/uL 0.33-0.92 = 742-7) EOS x10^3 (test code = 0.09 10*3/uL 0.03-0.39 711-2) BASO x10^3 (test code 0.01-0.07 = 704-7) Lab Interpretation Abnormal (test code = 05273-2) [facility] WITH [id number] 11:18:28 Test Item Value Reference Range Interpretation Comments WBC (test code = See_Comment L [Automated 8690-2) message] The sy stem which generated this [...] RDW-SD (test code = 49.5 fL 39-49.9 92607-1) RDW-CV (test code = 15.5 % 12-15.5 788-0) PLT (test code = See_Comment L [Automated 777-3) message] The sy stem which generated this result transmitted reference range : 166 - 358 10*3/ ?L. The reference r abbey was not used to interpret this result as normal/abnormal . MPV (test code = 11.4 fL 9.5-12.9 73623-7) IPF % (test code = 8.7 % 1.3-7.7 H Platelet count 5369975091) measured by fluorescence method. NRBC/100 WBC (test See_Comment [Automat ed code = 0378701992) message] The system which generated this result transmitted reference range : 0.0 - 10.0 /100 WBCs. The refer ence range was not u sed to interpret th is result as normal/abnormal . NRBC x10^3 (test code See_Comment [Auto mated = 3983591724) message] The s ystem which generated this result transmitted reference range : 10*3/?L. The reference range was not used to interpret this result as normal/abnormal . GRAN MAT (NEUT) % 62.0 % (test code = 770-8) IMM GRAN % (test code 0.80 % = 5159751143) LYMPH % (test code = 22.2 % 736-9) MONO % (test code = 9.6 % 5905-5) EOS % (test code = 5.1 % 713-8) BASO % (test code = 0.3 % 706-2) GRAN MAT x10^3(ANC) 2.21 10*3/uL 1.88-7.09 (test code = 8492904891) IMM GRAN x10^3 (test 0.03 10*3/uL 0-0.06 code = 3664810736) LYMPH x10^3 (test code 0.79 10*3/uL 1.32-3.29 L = 731-0) MONO x10^3 (test code 0.34 10*3/uL 0.33-0.92 = 742-7) EOS x10^3 (test code = 0.18 10*3/uL 0.03-0.39 711-2) BASO x10^3 (test code 0.01-0.07 = 704-7) POLYCHROMASIA (test 2+ See_Comment [Automa arpit code = 58211-9) message] The system which generated this result [...] . Lab Interpretation Abnormal (test code = 96170-1) [facility] METABOLIC PANEL (NA, K, CL, CO2, GLUCOSE, BUN, CREATININE, CA)2022-02-13 10:39:07 Test Item Value Reference Range Interpretation Comments NA (test code = 136 mmol/L 135-145 4808436383) K (test code = 4.1 mmol/L 3.5-5 8272229677) CL (test code = 102 mmol/L 98-108 2945216016) CO2 TOTAL (test code = 27 mmol/L 23-31 2051716835) AGAP (test code = 2-16 3105071400) BUN (test code = 22 mg/dL 7-23 5278012557) GLUCOSE (test code = 94 mg/dL 70-110 8356416536) CREATININE (test code = 0.94 mg/dL 0.5-1.04 4929363633) CALCIUM (test code = 8.1 mg/dL 8.6-10.6 L 7120172093) eGFR (test code = mL/min/1.73m2 6655621904) KYLE (test code = KYLE) Association of [...] tests). Lab Interpretation Abnormal (test code = 34528-5) [facility] 01:50:10 Test Item Value Reference Range Interpretation Comments Height (test code = in 2900004598) Weight (test code = lbs 2522638428) Systolic BP (test code mmHg = 4439645781) Diastolic BP (test code mmHg = 5034881655) Heart Rate (test code = bpm 0778287022) BSA (test code = 1.85 m2 1216167229) IVS (test code = 1.22 cm 4044166482) Interventricular Septum 1.22 cm Diastolic Thickness by 2D (test code = 2159213) LVIDD (test code = 5.00 cm 9150784228) Left Ventricular End 117.9 mL Diastolic Volume by Teichholz Method (test code = 0120811) LVPWD (test code = 1.22 cm 0470486540) PW (test code = 1.22 cm 0.6-1.8 4826005764) EF(Teich) (test code = 74.60 % 7107824402) LVIDS (test code = 2.80 cm 6481782199) Left Ventricular End 29.9 mL Systolic Volume by Teichholz Method (test code = 2365655) FS (test code = 44 % 4235323053) EF - 2D (test code = 74.60 % 29063258) LVOT diameter (test 2.16 cm code = 1477456370) LVOT area (test code = 3.70 cm2 7459837713) Ao root diam (test code 3.40 cm = 0876712072) Aortic root (test code 3.4 cm = 7161338598) Ao root annulus (test 3.4 cm code = 6322293419) LA size (test code = 3.4 cm 1711780584) TR Peak Spencer (test code 330.0 cm/s = 5734903461) Triscuspid Valve mmHg Regurgitation Peak Gradient (test code = 7685274465) PV REGURGITATION PEAK mmHg GRADIENT (test code = 6952243762) PI dec slope (test code 137.20 cm/s2 = 7413718787) LAV(MOD-sp4) (test code 102.90 mL = 7469949722) MV Peak E Spencer (test 84.1 cm/s code = 1587666040) MV Peak A Spencer (test 40.1 cm/s code = 7638338873) E/A ratio (test code = ratio 2892430899) MV valve area p 1/2 3.70 cm2 method (test code = 4737740116) MV dec slope (test code 413.00 cm/s2 = 4399182476) MV P1/2t max spencer (test 83.70 cm/s code = 0152794442) MV Prop V (test code = 41.80 cm/s 3920577963) Tapse (test code = 1.83 cm 3385774893) LVOT stroke volume 96.90 cm3 (test code = 5030810419) LVOT peak spencer (test 125.5 cm/s code = 5745661453) LVOT mn grad (test code mmHg = 0266979616) AV LVOT peak gradient mmHg (test code = 4103139936) LVOT peak VTI (test 26.4 cm code = 7209410711) LV V1 mean (test code = 78.10 cm/s 6862769318) Aortic valve mean 103.7 cm/s velocity (test code = 7966719396) Ao peak spencer (test code 165.6 cm/s = 2306739856) Ao VTI (test code = 37.2 cm 9987466856) AV area by cont VTI 2.6 cm2 (test code = 4857185926) AV area peak spencer (test 2.8 cm2 code = 4333596535) Ao max PG (test code = 11.00 mm[Hg] 5140145223) AV peak gradient (test mmHg code = 9103602518) AV valve area (test 2.60 cm2 code = 6585362793) AV mean gradient (test mmHg code = 3371097287) LA Volume Index (BP) 55.2 mL/m2 (test code = 5873635879) LA volume (BP) (test 102.1 mL code = 0553034502) LAV(MOD-sp2) (test code 86.10 mL = 7106388099) A2C EF (test code = 61.20 % 9769990744) EF(sp2-el) (test code = 61.60 % 8680868500) SV(MOD-sp2) (test code 47.10 mL = 6993478939) LV Diastolic Volume 70.7 mL (BP) (test code = 1303068174) A4C EF (test code = 53.00 % 8341114514) EF(MOD-bp) (test code = 56.70 % 0737707286) EF(sp4-el) (test code = 53.90 % 1056429286) LV Systolic Volume (BP) 30.6 mL (test code = 7031115536) SV(MOD-bp) (test code = 40.10 mL 7885101602) SV(MOD-sp4) (test code 32.40 mL = 4632573257) SV(sp4-el) (test code = 33.10 mL 4415655369) EF (test code = 3904434907) Left Ventricular Stroke 40.1 mL Volume by 2-D Biplane-MOD (test code = 8880470) LV Diastolic Volume 38.2 mL/m2 Index (BP) (test code = 6118912615) LV Systolic Volume 16.5 mL/m2 Index (BP) (test code = 2557866736) Radiology Study observation (narrative) (test code = 33354-4) KYLE (test code = KYLE) ?Left?Ventricle: Left [...] left ventricular wall motion is normal. [facility] [id number] 05:45:01 Test Item Value Reference Interpretation Comments Range TROPONIN I (test See_Comment [Automated code = 8131741180) message] The system which generated this result [...] biotin. Lab Interpretation Normal (test code = 07530-2) [facility]251[facility]52-22 05:41:40 Test Item Value Reference Range Interpretation Comments NT-proBNP (test code 4250 pg/mL See_Comment H [Autom ated = 6835164185) message] The system which generated this result transmitted reference range : <=125. The reference range was not used to interpret this result as normal/abnormal . KYLE (test code = KYLE) Biotin has been reported to cause a negative bias, interpret results relative to patient's use of biotin. Lab Interpretation Abnormal (test code = 02146-3) [facility] [id number] 05:35:21 Test Item Value Reference Range Interpretation Comments APTT Patient (test See_Comment [Automat ed code = 3173-2) message] The system which generated this result transmitted reference range : 23 - 38 Seconds . The reference range was not used to interpr et this result as normal/abnormal . KYLE (test code = KYLE) The [facility] patient population mean normal value for aPTT is 30 seconds. Lab Interpretation Normal (test code = 87673-5) [facility] EAW2745-04-13 05:35:21 Test Item Value Reference Range Interpretation Comments APTT Patient (test See_Comment [Automat ed code = 3173-2) message] The system which generated this result transmitted reference range : 23 - 38 Seconds . The reference range was not used to interpr et this result as normal/abnormal . KYLE (test code = KYLE) The [facility] patient population mean normal value for aPTT is 30 seconds. Lab Interpretation Normal (test code = 80824-8) [facility] / [id number] 05:33:21 Test Item Value Reference Range Interpretation [...] tions. Lab Interpretation (test Normal code = 79560-7) [facility]OLIC PANEL (11009)2022-02-11 05:33:21 Test Item Value Reference Range Interpretation Comments NA (test code = 137 mmol/L 135-145 2006879563) K (test code = 4.3 mmol/L 3.5-5 5534360330) CL (test code = 103 mmol/L 98-108 4217554048) CO2 TOTAL (test code = 25 mmol/L 23-31 0625404190) AGAP (test code = 2-16 4601576977) BUN (test code = 19 mg/dL 7-23 5101598252) GLUCOSE (test code = 120 mg/dL 70-110 H 6622192217) CREATININE (test code = 1.15 mg/dL 0.5-1.04 H 8096884883) TOTAL BILI (test code = 0.9 mg/dL 0.1-1.1 9781080765) CALCIUM (test code = 8.9 mg/dL 8.6-10.6 4341490095) T PROTEIN (test code = 6.6 g/dL 6.3-8.2 9573122495) ALBUMIN (test code = 4.0 g/dL 3.5-5 8413584450) ALK PHOS (test code = 73 U/L 34-122 1977461258) ALTv (test code = 18 U/L 5-35 1742-6) AST(SGOT) (test code = 31 U/L 13-40 7161233102) eGFR (test code = mL/min/1.73m2 5604377946) KYLE (test code = KYLE) Association of [...] tests). Lab Interpretation Abnormal (test code = 40100-8) [facility]. METABOLIC PANEL (16738)2022-02-11 05:33:21 Test Item Value Reference Range Interpretation Comments NA (test code = 137 mmol/L 135-145 6165652836) K (test code = 4.3 mmol/L 3.5-5.0 7317049819) CL (test code = 103 mmol/L 98-108 6891376026) CO2 TOTAL (test code = 25 mmol/L 23-31 1195220367) AGAP (test code = 2-16 4425731458) BUN (test code = 19 mg/dL 7-23 2315167698) GLUCOSE (test code = 120 mg/dL 70-110 H 9302710494) CREATININE (test code = 1.15 mg/dL 0.50-1.04 H 0676654319) TOTAL BILI (test code = 0.9 mg/dL 0.1-1.9 4379867360) CALCIUM (test code = 8.9 mg/dL 8.6-10.6 3643519269) T PROTEIN (test code = 6.6 g/dL 6.3-8.2 0647752141) ALBUMIN (test code = 4.0 g/dL 3.5-5.0 8346148058) ALK PHOS (test code = 73 U/L 34-122 5414119847) ALTv (test code = 18 U/L 5-35 1742-6) AST(SGOT) (test code = 31 U/L 13-40 1406579611) eGFR (test code = mL/min/1.73m2 1669694513) KYLE (test code = KYLE) Association of [...] tests). Lab Interpretation Abnormal (test code = 33135-9) [facility] / [id number] 05:33:21 Test Item Value Reference Range Interpretation [...] tions. Lab Interpretation (test Normal code = 01292-5) [facility]CBC WITH YXJU3132-21-15 05:14:37 Test Item Value Reference Range Interpretation [...] RDW-SD (test code = 47.9 fL 39-49.9 36388-5) RDW-CV (test code = 14.9 % 12-15.5 788-0) PLT (test code = See_Comment L [Automated 777-3) message] The sy stem which generated this result transmitted reference range : 166 - 358 10*3/ ?L. The reference r abbey was not used to interpret this result as normal/abnormal . MPV (test code = 9.1 fL 9.5-12.9 L 21536-6) NRBC/100 WBC (test See_Comment [Automat ed code = 2663127325) message] The system which generated this result transmitted reference range : 0.0 - 10.0 /100 WBCs. The refer ence range was not u sed to interpret th is result as normal/abnormal . NRBC x10^3 (test code See_Comment [Auto mated = 3256475318) message] The s ystem which generated this result transmitted reference range : 10*3/?L. The reference range was not used to interpret this result as normal/abnormal . GRAN MAT (NEUT) % 78.5 % (test code = 770-8) IMM GRAN % (test code 0.20 % = 6809276841) LYMPH % (test code = 11.6 % 736-9) MONO % (test code = 8.4 % 5905-5) EOS % (test code = 1.1 % 713-8) BASO % (test code = 0.2 % 706-2) GRAN MAT x10^3(ANC) 3.45 10*3/uL 1.88-7.09 (test code = 1947595750) IMM GRAN x10^3 (test 0-0.06 code = 9574383975) LYMPH x10^3 (test code 0.51 10*3/uL 1.32-3.29 L = 731-0) MONO x10^3 (test code 0.37 10*3/uL 0.33-0.92 = 742-7) EOS x10^3 (test code = 0.05 10*3/uL 0.03-0.39 711-2) BASO x10^3 (test code 0.01-0.07 = 704-7) Lab Interpretation Abnormal (test code = 95342-2) [facility] Coronavirus 2019 Nznppwm8964-54-10 18:08:00 Test Item Value Reference Range Interpretation [...] det ection of nucleic acids f rom sluKQVI-WaE-5 v irus and diagnosis of SA RS-CoV-2 virusinfection. It is an Emergency Use Authorization ( EUA) testauthorized by the U.S. FDA. BASIC METABOLIC TAHBP1632-03-75 09:37:00 Test Item Value Reference Range Interpretation [...] = 9.0 mg/dL 8.0-10.5 N CA) PROTHROMBIN JUXM1095-13-21 09:32:00 Test Item Value Reference Range Interpretation [...] (to prevent recurrent infar ct). 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 [facility] - XR CHEST 1 [id number] 00:00:00 [facility] 1955 Sex: F FAX: Carmenza Kelly [phone] [place]: St: ADM FAX: Mike Scales MD [phone] FAX: Bahman Chopra [phone] Name: LIO WATTS [facility] : 1955 Age/S: 66/F [address] [place] [address] Unit #:[id number] Loc: [place] [address] Phys: Bahman Chopra [facility] Acct: [id number] Dis Date: Status: ADM IN PHONE #: [phone] Exam Date: 06/17/2021 1320 FAX #: [phone] Reason: WATCHMAN EX AMS: CPT CODE: [id number] XR CHEST 1 V 62046 PROCEDURE INFORMATION: Exam: XR Chest Exam date [...] Chopra Technologist: RT Taylor(R) Trnscrd Date/Time/By: 06/17/2021 (7058) : By: Susanna Orig Print D/T: S: 06/17/2021 (8308) PAGE 1 Signed ReportCOVID 19 Asymptomatic IH [id number] 12:29:00 Test Item Value Reference Range Interpretation [...] high or waivedcomplexit y tests. BASIC METABOLIC UIJLL8558-70-25 11:37:00 Test Item Value Reference Range Interpretation [...] code = 9.0 mg/dL 8.0-10.5 N CA) UFSOJBNGYP3430-46-89 11:37:00 Test Item Value Reference Range Interpretation Comments PREALBUMIN (test code = PREALB) 24.3 mg/dL 16.0-40.0 N PROTHROMBIN ALGH3891-71-11 11:03:00 Test Item Value Reference Range Interpretation [...] (to prevent recurrent infar ct). CBC W/AUTO JUHE2995-35-92 10:59:00 Test Item Value Reference Range Interpretation [...] 0.0-0.1 N NRBC#) - XR CHEST 2 [id number] 00:00:00 [facility] 1955 Sex: F FAX: Carmenza Kelly [phone] [place]: St: PRE FAX: Mike Scales MD [phone] Name: LIO WATTS [facility] : 1955 Age/S: 66/F [address] [place] [address] Unit #: [id number] Loc: [place] Tiwari [address]Odpj: Mike Lund MD Acct: [id number] Dis Date: Status: PRE SDC PHONE #: [phone] Exam Date: 06/16/2021 1120 FAX #: [phone] Reason: PREOP EXAMS: CPT CODE: [id number] XR CHEST 2 V 46815 PROCEDURE INFORMATION: Exam: XR Chest Exam date [...] By: [email or web address] Orig Print D/T: S: 06/16/2021 (3999) PAGE 1 Signed ReportGastrointestinal pbcnj1768-90-76 04:35:05 Test Item Value Reference Interpretation Comments [...] Rotavirus PCR (test Not Detected code = 3412996) Salmonella PCR (test Not Detected code = [...] PCR Not Detected (test code = 7124) [facility] kfyvjmf6290-65-53 19:30:47 Test Item Value Reference Range Interpretation Comments Case number (test [id number] code = 6939998) Surgical pathology See link below for PDF report (test code = Lab Report 2255) Result status (test This is Supplemental code = 6533183) Report for [id number] [facility]2021-04-09 16:31:00 Test Item Value Reference Range Interpretation Comments POC Activated Clotting Time (test code 153 s = POC Activated Clotting Time) [facility] CenterIqwmckjZPHMUWAXYO8343-77-28 16:31:00 Test Item Value Reference Range Interpretation Comments POC Activated Clotting Time (test code 153 s = POC Activated Clotting Time) [facility] CenterVcygykmQXZBLXZFBL3696-70-66 16:31:00 Test Item Value Reference Range Interpretation Comments POC Activated Clotting Time (test code 153 s = POC Activated Clotting Time) [facility] CenterIxapqnpCAVAGZNRXU5022-91-73 16:31:00 Test Item Value Reference Range Interpretation Comments POC Activated Clotting Time (test code 153 s = POC Activated Clotting Time) [facility] CenterGfjpecfQSVASQDBWI6980-51-46 16:31:00 Test Item Value Reference Range Interpretation Comments POC Activated Clotting Time (test code 153 s = POC Activated Clotting Time) [facility] CenterVbvlhutWHPCPTIDIH9096-86-85 16:31:00 Test Item Value Reference Range Interpretation Comments POC Activated Clotting Time (test code 153 s = POC Activated Clotting Time) [facility] CenterQyaxrpbPUTPEPFRND2488-82-79 16:31:00 Test Item Value Reference Range Interpretation Comments POC Activated Clotting Time (test code 153 s = POC Activated Clotting Time) [facility] CenterTtxpzqhPWUFWYQYAT7012-77-00 14:37:00 Test Item Value Reference Range Interpretation Comments POC Activated Clotting Time (test code 454 s = POC Activated Clotting Time) [facility] CenterLhlqmhfFJGQOVBBPX4387-12-03 14:37:00 Test Item Value Reference Range Interpretation Comments POC Activated Clotting Time (test code 454 s = POC Activated Clotting Time) [facility] CenterHbsdpbiXDQTSKGFDI2955-30-01 14:37:00 Test Item Value Reference Range Interpretation Comments POC Activated Clotting Time (test code 454 s = POC Activated Clotting Time) [facility] CenterAsdqxhfZARLIRMZKM9604-02-96 14:37:00 Test Item Value Reference Range Interpretation Comments POC Activated Clotting Time (test code 454 s = POC Activated Clotting Time) [facility] CenterEmlubucAYBIEOGLAY5488-28-84 14:37:00 Test Item Value Reference Range Interpretation Comments POC Activated Clotting Time (test code 454 s = POC Activated Clotting Time) [facility] CenterCijwkujKEGFEDSXVC4369-63-21 14:37:00 Test Item Value Reference Range Interpretation Comments POC Activated Clotting Time (test code 454 s = POC Activated Clotting Time) [facility] CenterNyyjagzBLOWVVXKEH6179-96-37 14:37:00 Test Item Value Reference Range Interpretation Comments POC Activated Clotting Time (test code 454 s = POC Activated Clotting Time) [facility] CenterIoxdzldTOYYRCLETL1454-68-02 14:13:00 Test Item Value Reference Range Interpretation Comments POC Activated Clotting Time (test code 354 s = POC Activated Clotting Time) [facility] CenterDqncsjnEGEYOSLRLK9246-44-12 14:13:00 Test Item Value Reference Range Interpretation Comments POC Activated Clotting Time (test code 354 s = POC Activated Clotting Time) [facility] CenterXymzwunFTRGUGNYLZ9679-60-76 14:13:00 Test Item Value Reference Range Interpretation Comments POC Activated Clotting Time (test code 354 s = POC Activated Clotting Time) [facility] CenterYfjptaiPOMPTDNGVP5663-04-59 14:13:00 Test Item Value Reference Range Interpretation Comments POC Activated Clotting Time (test code 354 s = POC Activated Clotting Time) [facility] CenterOwpedvpBQMKCJWSSU6891-77-79 14:13:00 Test Item Value Reference Range Interpretation Comments POC Activated Clotting Time (test code 354 s = POC Activated Clotting Time) [facility] CenterDzahunmIQVCQHQRFC3051-21-11 14:13:00 Test Item Value Reference Range Interpretation Comments POC Activated Clotting Time (test code 354 s = POC Activated Clotting Time) [facility] CenterWryfuyzNPYCXTKVYF5896-84-32 14:13:00 Test Item Value Reference Range Interpretation Comments POC Activated Clotting Time (test code 354 s = POC Activated Clotting Time) [facility] GUSTLDF5567-83-50 10:37:00Negative (08/29/20 5:37 AM) [facility] DFJJI9784-66-82 10:37:61924Uxtfyglv HermannCHEM PANEL 2020-08-29 10:37:0028[facility] KRBUH5628-76-41 10:37:001.01[facility] JIUIT8713-76-49 10:37:94253Jabqjglf [facility]CHE[facility] OEKDR9355-19-76 10:37:003.8[facility] NQEJV1474-53-77 10:37:83183Hiewdmqr [facility]annCHE[facility] ZQOUC3838-95-11 10:37:0028[facility] PBKIX8221-60-10 10:37:009.8 [facility] YIQEB3559-68-93 10:37:0011.8[facility]annCHEM PANEL 2020-08-29 10:37:0059[facility] JNCDS5951-14-25 10:37:002.9[facility] SfnuhmnAVKCUUETMX0956-20-26 10:37:006.8[facility] OxakpvdQPBLYGZZKZ8252-36-29 10:37:004.47[facility] FfqclsbNFGPLUZEWQ5572-77-67 10:37:0010.6[facility] JCYWQEWJAO9433-97-06 10:37:0034.0[facility] RjvqlwwRCYGQXLXGK1061-65-27 10:37:00 76.1[facility] GvucxpcRUTEXXJSTF5597-54-20 10:37:00 Test Item Value Reference Range Interpretation Comments MCH (test code = MCH) 23.8 pg 27.0-31.0 [facility] YaqqoyaBNZNEIMWFK9942-38-47 10:37:0031.3[facility]annHEMATOLOGY 2020-08-29 10:37:0018.2[facility] WgigutqJCIPNPXTQO3275-93-03 10:37:08846Xvcvfboi PzhjysbPOJJIYAWNN7354-94-62 10:37:007.5[facility] JzbniunQDAFCJIYHO3896-30-55 10:37:00 Test Item Value Reference Range Interpretation Comments PT (test code = PT) 12.8 s 12.0-14.7 [facility] SdvygtmJUCGPQAQMK6025-05-67 10:37:00 Test Item Value Reference Range Interpretation Comments INR (test code = INR) 0.97 1 0.85-1.17 [facility] UnbrmtlBRDSLPZYAL8965-33-44 10:37:00 Test Item Value Reference Range Interpretation Comments PTT (test code = PTT) 25.0 s 22.9-35.8 [facility] AxzkvrgDUGBNTNWSL8573-07-61 10:37:0070.5[facility]annHEMATOLOGY 2020-08-29 10:37:0018.8[facility] HkrudduXCNBLYDHQD0925-34-25 10:37:009.5[facility] DncubqfVQNNTXZDMU7190-74-96 10:37:000.9[facility] SwligheDSZIMFUJAT1193-04-22 10:37:000.3[facility] TtxudqzBEAVYVPMGD5764-74-65 10:37:004.8[facility] [place] AUKJPBRWWN3668-55-72 10:37:001.3[facility] VjodoqtBEASUVMQRQ9158-43-58 10:37:000.6 [facility] JuxewdaWTOGVGTIRT7998-61-38 10:37:000.1[facility]annHEMATOLOGY 2020-08-29 10:37:001+ *ABN*(08/29/20 5:37 AM)[facility] UcnqitwOHHRYQADZY0983-28-30 10:37:00Not Detected (08/29/20 5:37 AM)[facility]annBL[facility]OD BANK RESULTS 2020-08-29 10:37:00Negative (08/29/20 5:37 AM)[facility]annCHEM PIZLY9619-95-74 10:37:93102Ndqowkun HermannCHEM ZDJVU3131-57-66 10:37:0028[facility]annCHEM LNKIR3820-58-12 10:37:001.01[facility]annCHEM UUHJL5201-72-81 10:37:74474 [facility] QJPVQ9925-65-10 10:37:003.8[facility]annCHEM PANEL 2020-08-29 10:37:31740Ohpedwmp HermannCHEM NNSPN7436-94-91 10:37:0028[facility]annCHE[facility] TMISV3679-57-56 10:37:009.8[facility]annCHE[facility] XJSHM0203-96-94 10:37:0011.8[facility]annCHEM GBRLZ7524-55-93 10:37:0059[facility]annCHEM JTETI4566-43-73 10:37:002.9[facility] PbivlpeTZLOPQOKYB3658-57-57 10:37:006.8 [facility] JeatbfwNFDKENACRS0957-19-03 10:37:004.47[facility]annHEMATOLOGY 2020-08-29 10:37:0010.6[facility] NgagogaDYEWMUIZGY2110-60-32 10:37:0034.0[facility] GowlpijAEXARKQUMR4844-52-18 10:37:0076.1[facility] GvdwcbjXGOMEXSUWR2451-43-07 10:37:00 Test Item Value Reference Range Interpretation Comments MCH (test code = MCH) 23.8 pg 27.0-31.0 [facility] DizbwkeXGHFJVWRCX1485-14-71 10:37:0031.3[facility]annHEMATOLOGY 2020-08-29 10:37:0018.2[facility] NromacpLAGKFYWYLR6716-50-01 10:37:88945Apjtemwq RlvmvnsRCBUPZTUVV2223-06-90 10:37:007.5[facility] GsmtfshHHMZUDIYZK2667-21-63 10:37:00 Test Item Value Reference Range Interpretation Comments PT (test code = PT) 12.8 s 12.0-14.7 [facility] LuuuphlOYHNSSJZXG8157-41-14 10:37:00 Test Item Value Reference Range Interpretation Comments INR (test code = INR) 0.97 1 0.85-1.17 [facility] LegdehtJEUKWUEGVW2674-11-91 10:37:00 Test Item Value Reference Range Interpretation Comments PTT (test code = PTT) 25.0 s 22.9-35.8 [facility] QvdvqtoUHGBWWCAGJ4578-68-35 10:37:0070.5[facility] 2020-08-29 10:37:0018.8[facility] AkwinzoZNBXRWWYLF4446-27-49 10:37:009.5[facility] SdebbjjRNFRQKSWDQ3893-51-59 10:37:000.9[facility] DbihvurAZKCYAFYXR5099-68-17 10:37:000.3[facility] UyxdxhbQKWLWXKFZV5409-08-90 10:37:004.8[facility] [place] SMDMDDOUFG3443-87-84 10:37:001.3[facility] VlswomcYQUNGVDNFB5654-72-76 10:37:000.6 [facility] FbgypccOOMSRENVYN8183-78-39 10:37:000.1[facility]annHEMATOLOGY 2020-08-29 10:37:001+ *ABN*(08/29/20 5:37 AM)[facility] JbdiewrBKXAXOYCTI4260-70-57 10:37:00Not Detected (08/29/20 5:37 AM)[facility]annBLOOD BANK RESULTS 2020-08-29 10:37:00Negative (08/29/20 5:37 AM)[facility]annCHEM IVMSE0302-44-16 10:37:75430Vxfoouca HermannCHEM MEEVG8944-47-78 10:37:0028[facility]annCHEM OPQIR6351-58-83 10:37:001.01[facility]annCHEM GDCCA4760-97-84 10:37:76409 [facility]annCHE[facility] HQOTP0069-39-33 10:37:003.8[facility]annCHEM PANEL 2020-08-29 10:37:34241Dmehewnz HermannCHEM DOOEF6523-61-32 10:37:0028[facility]annCHEM JMEVZ6712-54-31 10:37:009.8[facility]annCHEM WQIBH9194-35-49 10:37:0011.8[facility]annCHEM LBKGP3262-08-30 10:37:0059[facility]annCHEM RTFPU4536-53-52 10:37:002.9[facility] WtoqfqdPUCIPBUIMO3550-20-11 10:37:006.8 [facility] CgcimzwKZNCABXVXK1865-37-95 10:37:004.47[facility]annHEMATOLOGY 2020-08-29 10:37:0010.6[facility] QbcvkxwLDIMQUZACX6029-71-21 10:37:0034.0[facility] LshulikMAYJJQVTYA5692-20-78 10:37:0076.1[facility] PxisdipLUJUGELJJR5368-94-02 10:37:00 Test Item Value Reference Range Interpretation Comments MCH (test code = MCH) 23.8 pg 27.0-31.0 [facility] NtwrvhbPQGPXLPIQW0735-70-72 10:37:0031.3[facility]annHEMATOLOGY 2020-08-29 10:37:0018.2[facility] GcwoaptEPAIBMEPZZ3027-93-12 10:37:39517Lbbrbuid OyghiaiYGFJEFUNMX5699-05-39 10:37:007.5[facility] JrxpfuwMGTHOGSIJL2827-69-68 10:37:00 Test Item Value Reference Range Interpretation Comments PT (test code = PT) 12.8 s 12.0-14.7 [facility] AnghrclLPYDVSJPPW1654-48-58 10:37:00 Test Item Value Reference Range Interpretation Comments INR (test code = INR) 0.97 1 0.85-1.17 [facility] AqrtayiHRAGTEWITS6346-05-25 10:37:00 Test Item Value Reference Range Interpretation Comments PTT (test code = PTT) 25.0 s 22.9-35.8 [facility] VtykawmNANPUJCPHI5325-84-88 10:37:0070.5[facility]annHEMATOLOGY 2020-08-29 10:37:0018.8[facility] NvsuwdeBPSUAKAVQQ8137-74-70 10:37:009.5[facility] ZkovzukNSARCBKHXC6760-01-47 10:37:000.9[facility] ShmymmsNJYSWBJFBA5173-71-38 10:37:000.3[facility] QmrdjzjNBWQZHPLXL3918-49-65 10:37:004.8[facility] JVDFJWMGZM4945-41-28 10:37:001.3[facility] DsycymnTTSTOLKTEZ8752-06-33 10:37:000.6 [facility] DhdkmmhXPLASZTGTN0665-78-36 10:37:000.1[facility]annHE[facility]OLOGY 2020-08-29 10:37:001+ *ABN*(08/29/20 5:37 AM)[facility] ZytyuhpYXRYCVVWFX4162-10-78 10:37:00Not Detected (08/29/20 5:37 AM)[facility]annBLOOD BANK RESULTS 2020-08-29 10:37:00Negative (08/29/20 5:37 AM)[facility]annCHE[facility] HKOYG8941-17-50 10:37:61347Sobvcriq HermannCHEM ESTGC5996-38-35 10:37:0028[facility]annCHE[facility] MWYHS2611-25-50 10:37:001.01[facility]annCHE[facility] CLXUM3595-95-89 10:37:22817 [facility]CHE[facility] RRNDL9872-74-49 10:37:003.8[facility]annCHEM PANEL 2020-08-29 10:37:07777Reeetphm HermannCHEM ZCBFW2286-53-95 10:37:0028[facility]annCHE[facility] HCQJD9759-90-32 10:37:009.8[facility]annCHEM ZXJNT6617-68-73 10:37:0011.8[facility]annCHEM FSTTZ9265-94-87 10:37:0059[facility]annCHEM TDNHA2641-80-57 10:37:002.9[facility] ObwihmeVJXNJJSROF2852-35-27 10:37:006.8 [facility] EymdhqbBXLHJXVQTU6788-41-39 10:37:004.47[facility]annHEMATOLOGY 2020-08-29 10:37:0010.6[facility] VncpehxZGHWOTWNLL0887-96-52 10:37:0034.0[facility] BvchkuwAVPTITPVKG1852-46-99 10:37:0076.1[facility] LkqfwgiKTMCOFGMOD5135-82-59 10:37:00 Test Item Value Reference Range Interpretation Comments MCH (test code = MCH) 23.8 pg 27.0-31.0 [facility] XmeqcgvKAVGWSPZXA3948-45-28 10:37:0031.3[facility]OLOGY 2020-08-29 10:37:0018.2[facility] XavtlnpHEXJTWIRBE1872-39-88 10:37:55004Pvcvowku IjkkpluGWTUQWTYDW7168-86-51 10:37:007.5[facility] CpayzqmGKMKBPNQPD9958-05-47 10:37:00 Test Item Value Reference Range Interpretation Comments PT (test code = PT) 12.8 s 12.0-14.7 [facility] NsraryhIXGSYSAXWC4141-73-63 10:37:00 Test Item Value Reference Range Interpretation Comments INR (test code = INR) 0.97 1 0.85-1.17 [facility] RwzaxenZEJLSCPSLE3445-18-97 10:37:00 Test Item Value Reference Range Interpretation Comments PTT (test code = PTT) 25.0 s 22.9-35.8 [facility] QohakfoBKZXPAQZVB9155-17-80 10:37:0070.5[facility]Y 2020-08-29 10:37:0018.8[facility] YbuafbiIDVMKJSRWC5143-18-41 10:37:009.5[facility] LoimadbOZQMNXEWKI4622-14-45 10:37:000.9[facility] QmkglngDTQRVBVWZJ2088-14-71 10:37:000.3[facility] AximqwrOBIVJDORWQ0888-97-44 10:37:004.8[facility] ZCJPNJXZDS8964-39-46 10:37:001.3[facility] HcqroxzHMHXZKZQNI0878-62-02 10:37:000.6 [facility] UgardvuWFGTJAFGCC9015-19-69 10:37:000.1[facility]HEMATOLOGY 2020-08-29 10:37:001+ *ABN*(08/29/20 5:37 AM)[facility] FbiedpwPNNUOGBMUI7253-18-50 10:37:00Not Detected (08/29/20 5:37 AM)[facility] 2020-08-29 10:37:00Negative (08/29/20 5:37 AM)[facility]annCHEM RSMUG7430-17-75 10:37:43060Grbepjvk HermannCHEM EPAJE3105-92-84 10:37:0028[facility]annCHEM IRCJF1011-12-70 10:37:001.01[facility]annCHEM SSGLC9510-12-93 10:37:88548 [facility]annCHE[facility] IDNXV6546-08-41 10:37:003.8[facility]annCHEM PANEL 2020-08-29 10:37:81526Mhwlixcx HermannCHEM WLNEJ5252-47-77 10:37:0028[facility]annCHEM IMMGP0663-62-04 10:37:009.8[facility]annCHEM NXHNL8561-03-52 10:37:0011.8[facility]annCHEM WOVXR7194-45-47 10:37:0059[facility]annCHEM ECROD3833-48-69 10:37:002.9[facility] XyeftigUATXKFTRQY7049-09-01 10:37:006.8 [facility] UvlyticYYWFAHCWND6968-02-19 10:37:004.47[facility]ann[facility]MATOLOGY 2020-08-29 10:37:0010.6[facility] YqtjopsNRJIDQPIUH1367-75-69 10:37:0034.0[facility] MtexnwwSEUZHCKCWF9038-17-87 10:37:0076.1[facility] JiuaiuhJZDYJXTOLP1128-46-35 10:37:00 Test Item Value Reference Range Interpretation Comments MCH (test code = MCH) 23.8 pg 27.0-31.0 [facility] NiasjzeODNHXVNTRL8535-53-98 10:37:0031.3[facility]annHEMATOLOGY 2020-08-29 10:37:0018.2[facility] LcoycciNWXTNMOYNH6725-54-80 10:37:48171Foamstsn EoactziZVXAANMCWQ1256-73-29 10:37:007.5[facility] BlvprcpSYCGYPZENE4284-73-22 10:37:00 Test Item Value Reference Range Interpretation Comments PT (test code = PT) 12.8 s 12.0-14.7 [facility] PtjzxsrGVAWNOJCYD7232-66-56 10:37:00 Test Item Value Reference Range Interpretation Comments INR (test code = INR) 0.97 1 0.85-1.17 [facility] GozdaiaOSPVGPCVWK9093-22-79 10:37:00 Test Item Value Reference Range Interpretation Comments PTT (test code = PTT) 25.0 s 22.9-35.8 [facility] FdrkyixOWLYZOHQGA1582-45-38 10:37:0070.5[facility]annHEMATOLOGY 2020-08-29 10:37:0018.8[facility] WeijmnoDMQYKUSVNI6343-18-87 10:37:009.5[facility] QjdgkyuHQGTUYXPGI8519-04-67 10:37:000.9[facility] EufuzagBISNOWVQKE7567-12-81 10:37:000.3[facility] QmxcefpMXTKJYRSOF2674-17-35 10:37:004.8[facility] OLHESEQSLD6625-71-41 10:37:001.3[facility] MqrcpziQEHXNJIRGG0772-94-05 10:37:000.6 [facility] FxszkgjGBPCUBUGVT7380-08-47 10:37:000.1[facility]annHEMATOLOGY 2020-08-29 10:37:001+ *ABN*(08/29/20 5:37 AM)[facility] SwxitnxCGYHZKOHMN4742-08-98 10:37:00Not Detected (08/29/20 5:37 AM)[facility]annBLOOD BANK RESULTS 2020-08-29 10:37:00Negative (08/29/20 5:37 AM)[facility] HermannCHEM FURLJ9369-65-03 10:37:43333Ldxaoswf HermannCHEM MAKRZ2852-98-96 10:37:0028[facility] HermannCHEM JNXVK1399-91-85 10:37:001.01[facility] HermannCHEM DESRP5884-61-53 10:37:17249 [facility]annCHEM LTTUZ4282-94-08 10:37:003.8[facility]annCHEM PANEL 2020-08-29 10:37:54559Mtylgfcl HermannCHEM ZRHOV8852-19-84 10:37:0028[facility] HermannCHEM DSGIA7062-80-69 10:37:009.8[facility] HermannCHEM CVDBH7424-49-45 10:37:0011.8[facility] HermannCHEM AEBNX8035-95-93 10:37:0059[facility] HermannCHEM VGAGX7936-08-13 10:37:002.9[facility] DudhttmHGKRHUQVTR0147-77-38 10:37:006.8 [facility] XydhmjzCXHJZIDVMH9069-12-43 10:37:004.47[facility]annHEMATOLOGY 2020-08-29 10:37:0010.6[facility] OwppsraTZVKMWFGGH0350-34-39 10:37:0034.0[facility] BaaurcgBVHAOHHFZP6115-49-32 10:37:0076.1[facility] YzeuyldRMBRIDQMCF3038-23-44 10:37:00 Test Item Value Reference Range Interpretation Comments MCH (test code = MCH) 23.8 pg 27.0-31.0 [facility] TuesfwfJZERLGPMLS8403-63-93 10:37:0031.3[facility]annHEMATOLOGY 2020-08-29 10:37:0018.2[facility] LszntvtXZHLINGCKC6864-40-68 10:37:65198Nyfkijft NbertirQSILAVEWCV0096-62-99 10:37:007.5[facility] ZenauswUYOZMDDAGE6535-49-58 10:37:00 Test Item Value Reference Range Interpretation Comments PT (test code = PT) 12.8 s 12.0-14.7 [facility] FovuthvERICMCFFHE4757-55-43 10:37:00 Test Item Value Reference Range Interpretation Comments INR (test code = INR) 0.97 1 0.85-1.17 [facility] NgxgsrtGQRNQAQSLI4984-42-90 10:37:00 Test Item Value Reference Range Interpretation Comments PTT (test code = PTT) 25.0 s 22.9-35.8 [facility] LifaghsKGWZWKUCXP3867-01-51 10:37:0070.5[facility]annHEMATOLOGY 2020-08-29 10:37:0018.8[facility] GnvdbknPFNWXGOESR7089-75-92 10:37:009.5[facility] QcuypxfRHALVMJACE4368-99-57 10:37:000.9[facility] MuourziKMVHFDJHPJ2499-65-94 10:37:000.3[facility] YvdcqqkFJFRBYEPHY1142-65-36 10:37:004.8[facility] SLRLPSRLUV2096-91-04 10:37:001.3[facility] GspraoxWRDGGLSQZN1127-67-52 10:37:000.6 [facility] CqxoraeYIDTMTOCTR7732-14-89 10:37:000.1[facility]annHEMATOLOGY 2020-08-29 10:37:001+ *ABN*(08/29/20 5:37 AM)[facility] WokcikkQUPZEEJUIN4936-70-88 10:37:00Not Detected (08/29/20 5:37 AM)[facility]annBLOOD BANK RESULTS 2020-08-29 10:37:00Negative (08/29/20 5:37 AM)[facility] HermannCHEM YXZBJ5982-40-67 10:37:30624Lyouxwqn HermannCHEM HTBQU2812-27-12 10:37:0028[facility] HermannCHEM NAOII5499-58-75 10:37:001.01[facility] HermannCHEM UGFPQ1694-99-49 10:37:35769 [facility]annCHEM OQTDC3990-29-25 10:37:003.8[facility] HermannCHEM PANEL 2020-08-29 10:37:25358Ixaeukbp HermannCHEM QMFKK5643-43-99 10:37:0028[facility] HermannCHEM BSOAR4039-33-80 10:37:009.8[facility] HermannCHEM AHYYV6276-25-91 10:37:0011.8[facility] HermannCHEM FLCEP6837-27-48 10:37:0059[facility] HermannCHEM HOEGT8001-30-89 10:37:002.9[facility] CdffkwjQQSWZEZDBN9884-66-23 10:37:006.8 [facility] NjvvcpaPSVUSYYAPM7273-69-56 10:37:004.47[facility]annHEMATOLOGY 2020-08-29 10:37:0010.6[facility] XlxkfdqDRKDMQZQDQ0876-45-37 10:37:0034.0[facility] YzyretrHHHPUPUKMR0350-38-24 10:37:0076.1[facility] DgrhukkGZABURKEKU3442-57-80 10:37:00 Test Item Value Reference Range Interpretation Comments MCH (test code = MCH) 23.8 pg 27.0-31.0 [facility] PvcwmagGUHUBNSPCV7338-19-58 10:37:0031.3[facility]annHEMATOLOGY 2020-08-29 10:37:0018.2[facility] AmixtlhRRPYMRXSPF6543-15-01 10:37:07652Nlzyjbet LbftxpfUCJGXCPIYE4286-35-14 10:37:007.5[facility] IzfrchhZZJNEFNLNQ9041-60-60 10:37:00 Test Item Value Reference Range Interpretation Comments PT (test code = PT) 12.8 s 12.0-14.7 [facility] NvvygmxINBOXWSJNA4937-55-52 10:37:00 Test Item Value Reference Range Interpretation Comments INR (test code = INR) 0.97 1 0.85-1.17 [facility] JiwhdwkVFTURQCIMC6084-21-14 10:37:00 Test Item Value Reference Range Interpretation Comments PTT (test code = PTT) 25.0 s 22.9-35.8 [facility] RpefmhdNYKSUGCDFU8847-61-75 10:37:0070.5[facility]annHEMATOLOGY 2020-08-29 10:37:0018.8[facility] VhkasbqXONJHZDOIE7714-72-86 10:37:009.5[facility] TniygvcHOVHCJVFZI0924-18-14 10:37:000.9[facility] CmislwsNPATQVNKFF3879-26-86 10:37:000.3[facility] WzpaabpMYVKOSNTXM5206-84-68 10:37:004.8[facility] FEDODCWYTP3986-46-01 10:37:001.3[facility] FkziacwTOVOJPUHGB5967-15-19 10:37:000.6 [facility] NeasookQHECCFWUKD2828-64-67 10:37:000.1[facility]annHEMATOLOGY 2020-08-29 10:37:001+ *ABN*(08/29/20 5:37 AM)[facility] CxmxgjtUOXKXLFXAM5924-60-82 10:37:00Not Detected (08/29/20 5:37 AM)[facility] HermannCHLAMYDIA, GC, TV,PCR, IN KRKMR1931-74-44 15:38:00 Test Item Value Reference Range Interpretation Comments FT (test code = CHTR) Not detected (qualifier Not Detected N value) FT (test code = Not detected (qualifier Not Detected N NGONO) value) FT (test code = TRVG) Not detected (qualifier Not Detected N value) [facility] KJPMPRRUVIU4247-02-82 10:57:00 Test Item Value Reference Range Interpretation Comments Color (test code = UCOLR) Dk. Yellow Clarity (test code = UCLAR) Hazy Glucose (test code = UGLUC) NEGATIVE NEGATIVE N Bilirubin (test code = UBILI) NEGATIVE NEGATIVE N Ketones (test code = UKET) NEGATIVE NEGATIVE N Specific [place] (test code = 1.025 1.005-1.030 A USPGR) [...] = None Seen None Seen N URCRYS) [facility]"
[2022-05-09] MEDS ORDERED: dexAMETHasone 10 MG/ML VIAL ONE (13:49)
[2022-05-09 14:04] LABS: Urine Blood Trace-intact (Negative); Urine Glucose Negative (Negative); Urine Protein Negative (Negative); Urine Specific Gravity 1.025 (1.005-1.030)
--- NOTE | 2022-05-09 15:55 | RAD REPORT ---
EXAM DESCRIPTION: RAD - Chest Single View - 05/09/2022 2:49 pm CLINICAL HISTORY: COUGH, patient history positive COVID COMPARISON: Portable May 07 TECHNIQUE: AP portable chest image was obtained 05/09/2022 2:49 pm . FINDINGS: No new mass or consolidation of the lung parenchyma. Fullness of the right hilum is slight ly less evident. Cardiomegaly is present without acute vascular engorgement. This is similar to josé miguel rison. No measurable pleural effusion and no pneumothorax. No acute bone finding. Bilateral shoulder prostheses in place. No acute aortic findings suspected. IMPRESSION: Cardiomegaly without other findings of acute failure or volume overload. No acute lung parenchymal process.
--- NOTE | 2022-05-09 16:04 | ER ---
Nurse's Notes [facility] Name: Marjan Kolb Age: 67 yrs Sex: Female : 1955 Arrival Date: 05/09/2022 Time: 13:25 Bed 15 Private MD: Diagnosis: UTI/ Urinary tract infection, site not specified;Coronavirus infection, unspecified Presentation: 05/09 13:32 Chief complaint: EMS states: "pt is reporting COVID X 4 days. she is reporting a jd3 worsening cough with pain in her chest. she is also reporting that she is having pain were her bladder is related to having a recent development of having bad kidneys. stable vitals other than an elevated blood pressure.". Coronavirus screen: cough unrelated to allergies, Client presents with at least one sign or symptom that may indicate coronavirus-19. Standard/surgical mask placed on the client. Provider contacted for isolation considerations. Client reports previous positive COVID test result. Date of collection: May 05, 2022. Ebola Screen: No symptoms or risks identified at this time. Initial Sepsis Screen: Does the patient meet any 2 criteria? No. Patient's initial sepsis screen is negative. Does the patient have a suspected source of infection? No. Patient's initial sepsis screen is negative. Risk Assessment: Do you want to hurt yourself or someone else? Patient reports no desire to harm self or others. Onset of symptoms was May 05, 2022. 13:32 Method Of Arrival: EMS: [facility] jd3 13:32 Acuity: BLAYNE 3 jd3 Historical: - Allergies: 13:37 Bactrim; jd3 13:37 butorphanol; jd3 13:37 Fentanyl; jd3 13:37 Reglan; jd3 13:37 Sulfa (Sulfonamide Antibiotics); jd3 13:37 TRIMETHOPRIM; jd3 13:37 Azithromycin; jd3 - PMHx: 13:37 Anxiety; Atrial fibrillation; Bipolar disorder; esophageal varicies; Hepatitis; HIV jd3 positive; Hypertensive disorder; Migraine; panic attack; - Immunization history:: Adult Immunizations up to date, Client reports receiving the 2nd dose of the Covid vaccine, Flu vaccine is up to date. - Social history:: Smoking status: Patient/guardian denies using tobacco, but has a distant history of tobacco abuse. Screenin:07 [facility] ED Fall Risk Assessment (Adult) History of falling in the last 3 months, kc6 including since admission Yes- fall prone (multiple falls) (3 pts) Confusion or Disorientation No (0 pts) Intoxicated or Sedated No (0 pts) Impaired Gait Yes (1 pt) Mobility Assist Device Used Yes (1 pt) Altered Elimination No (0 pt) Score/Fall Risk Level 3 or more points = High Risk Oriented to surroundings, Maintained a safe environment, Educated pt \\T\\ family on fall prevention, incl call for assistance when getting out of bed, Assessed \\T\\ reinforced patient's understanding of fall precautions, Provided non-skid footwear, Hourly rounding (assess needs \\T\\ fall precautionary measures) done, Used ambulatory aids as needed (educated on \\T\\ assisted with), Used gait belt as appropriate Apply high fall risk patient identification: yellow non skid footwear/ fall signage, Remained w/in arm's length of patient and in sight while toileting, Offered frequent toileting (1:1 observation), Remained with patient while ambulating. Abuse screen: Denies threats or abuse. Denies injuries from another. Nutritional screening: No deficits noted. Tuberculosis screening: No symptoms or risk factors identified. Assessment: 14:04 General: Appears in no apparent distress. comfortable, Behavior is calm, cooperative, kc6 appropriate for age. Pain: Complains of pain in chest Pain does not radiate. Pain currently is 8 out of 10 on a pain scale. Quality of pain is described as sharp, Pain began 2-3 days ago. Is continuous, Alleviated by nothing. Aggravated by increased activity, Also complains of no other associated symptoms. Neuro: Gonzalez Agitation-Sedation Scale (RASS): 0 - Alert and Calm Level of Consciousness is awake, alert, obeys commands, Oriented to person, place, time, situation, Appropriate for age. Cardiovascular: Heart tones S1 S2 present Capillary refill < 3 seconds. Respiratory: Airway is patent Trachea midline Respiratory effort is even, unlabored, Respiratory pattern is regular, symmetrical, Breath sounds are clear bilaterally. GI: No signs and/or symptoms were reported involving the gastrointestinal system. : Urine is clear, Reports burning with urination. EENT: No signs and/or symptoms were reported regarding the EENT system. Derm: No signs and/or symptoms reported regarding the dermatologic system. Skin is intact, Skin is pink, warm \\T\\ dry. Bruising that is dark purple, on right arm and left arm. Musculoskeletal: No signs and/or symptoms reported regarding the musculoskeletal system. Circulation, motion, and sensation intact. Capillary refill < 3 seconds, Range of motion: intact in all extremities. 14:51 Reassessment: Patient appears in no apparent distress at this time. No changes from kc6 previously documented assessment. Patient and/or family updated on plan of care and expected duration. Pain level reassessed. Patient is alert, oriented x 3, equal unlabored respirations, skin warm/dry/pink. 15:47 Reassessment: Patient appears in no apparent distress at this time. No changes from kc6 previously documented assessment. Patient and/or family updated on plan of care and expected duration. Pain level reassessed. Patient is alert, oriented x 3, equal unlabored respirations, skin warm/dry/pink. Vital Signs: 13:37 BP 199 / 104; Pulse 62; Resp 19 S; Temp 98.6(O); Pulse Ox 100% on R/A; Weight 79.38 kg jd3 (R); Height 5 ft. 4 in. (162.56 cm) (R); Pain 10/10; 14:51 BP 166 / 97; Pulse 60; Resp 18 S; Pulse Ox 100% on R/A; kc6 15:47 BP 193 / 99; Pulse 55; Resp 19 S; Pulse Ox 95% on R/A; kc6 13:37 Body Mass Index 30.04 (79.38 kg, 162.56 cm) jd3 ED Course: 13:25 Patient arrived in ED. ss 13:29 Lv Boudreaux PA is PHCP. jmm 13:29 Heladio Collins MD is Attending Physician. jmm 13:37 Triage completed. jd3 13:37 Arm band placed on. jd3 13:41 Madyson Mills, ASHLEY is Primary Nurse. kc6 14:08 Patient has correct armband on for positive identification. Bed in low position. Call kc6 light in reach. Side rails up X2. 14:51 Chest Single View XRAY In Process Unspecified. EDMS 16:16 No provider procedures requiring assistance completed. Patient did not have IV access kc6 during this emergency room visit. Administered Medications: 13:51 Drug: Decadron (dexamethasone) 10 mg Route: IM; Site: right deltoid; kc6 14:32 Follow up: Response: No adverse reaction kc6 Medication: 16:17 VIS not applicable for this client. kc6 Outcome: 16:03 Discharge ordered by . yas 16:16 Discharged to home via wheelchair, with significant other. kc6 16:16 Condition: stable 16:16 Discharge instructions given to patient, Instructed on discharge instructions, follow up and referral plans. medication usage, Demonstrated understanding of instructions, follow-up care, medications, Prescriptions given X 2. 16:17 Patient left the ED. kc6 Signatures: Dispatcher [employer] EDMS Lv Boudreaux PA PA jmm Smirch, Shelby, RN RN ss Davies, Jonathon, RN RN jd3 Campbell, Kaitlyn, RN RN kc6
--- NOTE | 2022-05-09 16:04 | EDPHYS ---
Physician Documentation [facility] Name: Marjan Kolb Age: 67 yrs Sex: Female : 1955 Arrival Date: 05/09/2022 Time: 13:25 Bed 15 Private MD: ED Physician Heladio Collins HPI: 05/09 13:36 This 67 yrs old Female presents to ER via EMS with complaints of -covid, Painful Cough. jmm 13:36 The patient has shortness of breath at rest. Onset: The symptoms/episode began/occurred jmm gradually. This is a 67 year old female with a history of afib, atrial fibrillation, bipolar, that presents to the ED with complaints of cough, sob since being diagnosed with covid. Patient was made aware she has renal issues during previous ER vist. Patient states she has had painful urination over the past 2 days. Denies vomiting. . Historical: - Allergies: 13:37 Bactrim; jd3 13:37 butorphanol; jd3 13:37 Fentanyl; jd3 13:37 Reglan; jd3 13:37 Sulfa (Sulfonamide Antibiotics); jd3 13:37 TRIMETHOPRIM; jd3 13:37 Azithromycin; jd3 - PMHx: 13:37 Anxiety; Atrial fibrillation; Bipolar disorder; esophageal varicies; Hepatitis; HIV jd3 positive; Hypertensive disorder; Migraine; panic attack; - Immunization history:: Adult Immunizations up to date, Client reports receiving the 2nd dose of the Covid vaccine, Flu vaccine is up to date. - Social history:: Smoking status: Patient/guardian denies using tobacco, but has a distant history of tobacco abuse. ROS: 13:36 Constitutional: Positive for body aches. jmm 13:36 Respiratory: Positive for cough. 13:36 : Positive for urinary symptoms. 13:36 All other systems are negative. Exam: 13:36 Constitutional: This is a well developed, well nourished patient who is awake, alert, jmm and in no acute distress. Head/Face: atraumatic. Eyes: EOMI, no conjunctival erythema appreciated ENT: Moist Mucus Membranes Neck: Trachea midline, Supple Chest/axilla: Normal chest wall appearance and motion. Cardiovascular: Regular rate and rhythm. No edema appreciated Respiratory: Normal respirations, no respiratory distress appreciated Abdomen/GI: Non distended Back: Normal ROM Skin: General appearance color normal MS/ Extremity: Moves all extremities, no obvious deformities appreciated, no edema noted to the lower extremities Neuro: Awake and alert Psych: Behavior is normal, Mood is normal, Patient is cooperative and pleasant Vital Signs: 13:37 BP 199 / 104; Pulse 62; Resp 19 S; Temp 98.6(O); Pulse Ox 100% on R/A; Weight 79.38 kg jd3 (R); Height 5 ft. 4 in. (162.56 cm) (R); Pain 10/10; 14:51 BP 166 / 97; Pulse 60; Resp 18 S; Pulse Ox 100% on R/A; kc6 15:47 BP 193 / 99; Pulse 55; Resp 19 S; Pulse Ox 95% on R/A; kc6 13:37 Body Mass Index 30.04 (79.38 kg, 162.56 cm) jd3 MDM: 13:36 Patient medically screened. [facility] 16:03 Data reviewed: vital signs, nurses notes. Counseling: I had a detailed discussion with yas the patient and/or guardian regarding: the historical points, exam findings, and any diagnostic results supporting the discharge/admit diagnosis, the need for outpatient follow up, to return to the emergency department if symptoms worsen or persist or if there are any questions or concerns that arise at home. 05/09 14:04 Order name: Urine Dipstick-Ancillary; Complete Time: 14:05 [facility] 05/09 13:37 Order name: Chest Single View XRAY; Complete Time: 16:00 [facility] 05/09 13:37 Order name: Urine Dipstick-Ancillary (obtain specimen); Complete Time: 14:04 [facility] Administered Medications: 13:51 Drug: Decadron (dexamethasone) 10 mg Route: IM; Site: right deltoid; kc6 14:32 Follow up: Response: No adverse reaction 6 Disposition Summary: 05/09/22 16:03 Discharge Ordered Location: Home [facility] Condition: Stable [facility] Diagnosis - UTI/ Urinary tract infection, site not specified [facility] - Coronavirus infection, unspecified [facility] Followup: [facility] - With: Private Physician - When: 2 - 3 days - Reason: Recheck today's complaints, Continuance of care, Re-evaluation by your physician Discharge Instructions: - Discharge Summary Sheet yas - Urinary Tract Infection, Adult [facility] - COVID-19 [facility] Forms: - Medication Reconciliation Form [facility] - Thank You Letter [facility] - Antibiotic Education [facility] - Prescription Opioid Use [facility] Prescriptions: - cefdinir 300 mg Oral capsule - take 1 capsule by ORAL route every 12 hours for 10 days; 20 capsule; Refills: [facility] 0, Product Selection Permitted - promethazine-DM - take 10 milliliter by ORAL route every 4-6 hours As needed; 200 milliliter; [facility] Refills: 0, Product Selection Permitted Signatures: Dispatcher [employer] Lv Echevarria PA PA jmm Davies, Jonathon, RN RN jd3 Madyson Mills RN RN kc6
[2022-05-09 16:23] VITALS: TEMP 98.6
[2022-05-09 16:25] VITALS: BP 193/99; O2SAT 95
== END 2022-05-09 16:17 | disposition home or self-care (01) ==
LOC: ER 13:24
DX: U07.1 COVID-19 (principal); N39.0 Urinary tract infection, site not specified; I10 Essential (primary) hypertension; Z21 Asymptomatic human immunodeficiency virus [HIV] infection status; Z88.1 Allergy status to other antibiotic agents; Z88.2 Allergy status to sulfonamides; Z88.3 Allergy status to other anti-infective agents; Z88.5 Allergy status to narcotic agent
CPT/HCPCS: 81003; 71045; 96372; 99284; J1100

== ENCOUNTER 2022-05-19 00:35 | Emergency (ER) | payer OTHER ==
--- OUTSIDE RECORDS SUMMARY | 2022-05-19 00:56 | XMS REPORT | Continuity of Care Document ---
:1955 Author Organization [facility] t Address [address] [place] [address] Care Team Providers Name Role Phone Urmila Rahman Primary Care Physician ELAN LIRA Attending Clinician Unavailable PLACIDOPOLIZBEVERLY Attending Clinician Unavailable SANTIAGO CARDENAS Attending Clinician Unavailable HOME MATTHEWS Attending Clinician Unavailable Home Santamaria Attending Clinician Santiago Sanchez Attending Clinician THERESA HICKMAN Attending Clinician Unavailable Theresa Hickman DO Attending Clinician ANETTE OLEA Attending Clinician Unavailable Anette Olea MD Attending Clinician PAULETTE GRAY Attending Clinician Unavailable Isaac PAC, Paulette S Attending Clinician UNKNOWN, ATTENDING Attending Clinician Unavailable Robbi Bal [facility]ending Clinician [facility]ending Clinician Unavailable Isaias Whiteside RN Attending Clinician Unavailable TOMY MARIE Attending Clinician Unavailable Reilly Means MD Attending Clinician Ofe Shields MD Attending Clinician Tomy Marie MD Attending Clinician Doctor Unassigned, Harmony Attending Clinician Unavailable Bill COLES Attending Clinician Unavailable Bill Rose Attending Clinician CHARITY MCALLISTER Attending Clinician Unavailable Charity Mcallister MD Attending Clinician GADIEL KOEHLER Attending Clinician Unavailable Mike Lund Attending Clinician Unavailable NIKOLAI REEVES Attending Clinician Unavailable Eliseo Arce MD Attending Clinician Carol Ann IZQUIERDO, Sarai Lieberman Attending Clinician [phone] Ashly Pelletier MA Attending Clinician Unavailable Dagoberto Bass MD Attending Clinician Cuba Evangelista Attending Clinician Lab, [facility] Pob I Attending Clinician Unavailable Monica Rodas MA Attending Clinician Unavailable Agustina Ortiz MA Attending Clinician Unavailable Andrez RAMIREZ, Rody Attending Clinician Unavailable Remigio MD, Saraswathi V. Attending Clinician HEMATPOUR, BEVERLY Attending Clinician Unavailable Caridad SALGUERO, Gloria Attending Clinician Xiao RAMIREZ, Michael Corbin Attending Clinician Unavailable Team, [facility] Attending Clinician UnavailDO PORSHA Newell Attending Clinician Unavailable Gadiel Koehler MD Attending Clinician Tyrone JENKINS, Eveline Sierra Attending Clinician Eladio Colorado RN Attending Clinician Unavailable Geraldine SALGUERO, Leyda Attending Clinician [phone] Selvin RAMIREZ, Stefanie Attending Clinician Unavailable HOME MATTHEWS Admitting Clinician Unavailable ANETTE OLEA Admitting Clinician Unavailable TOMY MARIE Admitting Clinician Unavailable Frank JENKINS, Tomy Admitting Clinician Bill COLES Admitting Clinician Unavailable Lacey UrmilaBibianaFrancisco Kristen Admitting Clinician Unavailable Mike Lund Admitting Clinician Unavailable ELISEO ARCE Admitting Clinician Unavailable DO PORSHA STREETER Admitting Clinician Unavailable Payers Payer Name Policy Type Policy Number Effective Date Expiration Date S gabino [facility] COMM[facility] PL[facility] [id number] 2012 STAR PLUS OON 00:00:00 [facility] [id number] 2019 DUAL COMPLETE HMO 00:00:00 [facility] [id number] 2019 PLUS 00:00:00 [facility] [id number] 2019 [facility] [place] STAR 00:00:00 [employer] MEDICARE ADV [id number] 2019 2019 00:00:00 00:00:00 Problems Condition Condition Condition Status Onset Resolution Last Treating Co mments Source Name Details Category Date Date Treatment Clinician Date Dyspnea, Dyspnea, Disease Active Unive rs unspecifie unspecifie 02-11 it y of d type d type 00:00: [place] [address] Medical Branch Gastropare Gastropare Disease Active Overview : Methodi sis sis 4-[address] 00:00: [facility] note l might be different from the original. Added automatic ally from request for surgery [id number] Dysphagia Dysphagia Disease Active Overview: Methodi 4-[address] 00:00: g of this [facility]osp[facility] 00 note l might be different from the original. 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 2020-10-15 Get PVI PVI 3-30 17:07:00 l ABLATION ABLATION 00:00: Patel n W/ CARTO / W/ CARTO / 00 GA / T GA / T Active 08/19/2020 [facility] Food Food Disease Active 2019-05 Methodi intoleranc [...] 2 Disease Active Uni vers disorder disorder - ity of 00:00: [place] [facility] Chronic [...] H[facility] hoxazole 1-25 Clear 00:00: Garcia 00 [facility] trimetho DA Active SV [facility] prim 1-25 Clear 00:00: Garcia [facility] codeine DA Active SV N/V [facility] 1-25 Clear 00:00: Garcia [facility] Metoclop Propensi Active [place] ramide ty to 12-12 Health adverse 00:00: reaction 00 s BUTORPHA DRUG Active Unknown-Cmnt Un matt NOL INGREDI 11-25 ity of 00:00: [place] [facility] Butorpha Drug Active Unknown - [...] 2017- Univers INGREDI 2-08 ity of 00:00: [place] [facility] TRIMETHO DRUG Active Hives [facility] father Coronary [facility] [place] [facility] mother [facility] Social History Social Habit Start Date Stop Date Quantity Comments Source History SDOH [facility] Alcohol Frequency Hospita l History SDOH [facility] Alcohol Std Drinks Hospit al History SDAZ [facility] Exposure to 2022-04-30 2022-05-10 Yes University of SARS-CoV-2 (event) 00:00:00 10:25:00 [facility] Tobacco use and 2022-02-11 2022-02-11 Former smokeless Uni versity of exposure 00:00:00 00:00:00 tobacco user [facility] Tobacco Comment 2022-02-11 2022-02-11 Smokes approx 1-2 Un iversity of 00:00:00 00:00:00 cigarettes per [facility] day when she Branch smokes Alcohol intake 2020-12-08 2020-12-08 Current drinker Metho dist 00:00:00 00:00:00 of [facility] (finding) Cigarettes smoked 2020-09-05 2020-09-[address] current (pack per 00:00:00 00:00:00 [facility] hospital l day) - Reported Cigarette 2020-09-05 2020-09-05 [facility] pack-years 00:00:00 00:00:00 Hospital Alcohol Comment 2016-09-23 2016-09-23 rare [facility] 00:00:00 00:00:00 Hospital History of tobacco 2011-09-29 User of smokeless University of use 00:00:00 tobacco [facility] Sex Ass[birth year] At [birth year] [facility] 00:00:00 00:00:00 Smoking Status Start Date Stop Date Source Ex-smoker 2022-02-11 00:00:00 2022-02-11 00:00:00 Universi ty of [facility] Medications Ordered Filled Start Stop Current Ordering Indication Dosage Frequency Signature Comments Components Source Medication Medication Date Date Medication? Clinician (SIG) Name Name potassium 2021-05- No 10meq 10 mEq, IV Univers chloride in 07-11 Piggyback, i ty of water 10 20:00: 22:00 ONCE, 1 [place] mEq/100 mL 00 :00 dose, On Medic al RTU [address] [facility] 05/10/22 at 1400, Administer over 60 Minutes, 100 mL magnesium 2021-05 No 800mg 800 mg, Uni vers oxide 07-11 Oral, ity of (MAG-OX 20:00: 19:37 ONCE, 1 [place] 400) tablet 00 :00 dose, On Medi porfirio [address] [facility] 05/10/22 at 1400, Routine KCL 2021-05- No 40meq 40 mEq, Univers (KLOR-CON 07-11 Oral, ity of M20) tablet 19:15: 19:37 [place]CE[place] 1 [place] 40 mEq 00 :00 dose, On Medical [facility] 05/10/22 at 1315, JOE hydralAZINE 2021-05- No 10mg 10 mg, Uni vers (APRESOLINE 07-11 Slow IV ity of ) injection 18:45: 18:42 [place] 10 mg 00 :00 ONCE, 1 Medical dose, On [facility] 05/10/22 at 1245, JOE NaCl 0.9% 2021-05- No 1000mL at 999 Uni vers (NS) bolus 07-11 mL/hr, ity of infusion 17:45: 20:00 1,000 mL, [place] 1,000 mL 00 :00 IV Medical Infusion, Branch ONCE, 1 dose, On [facility] 05/10/22 at 1145, JOE cefpodoxime 2021-05- Yes [id number] 100mg Take 1 Univers 100 mg 2-17 12-25 tablet by ity of tablet 00:00: 05:59 mouth in [place] 00 :00 the [facility] Branch and 1 tablet in the evening. Do all this for 7 days. cefpodoxime 2021-05- Yes [id number] 100mg Take 1 Univers 100 mg 2-17 12-25 tablet by ity of tablet 00:00: 05:59 mouth in [place] 00 :00 the [facility] morning Branch and 1 tablet in the evening. Do all this for 7 days. cefpodoxime 2021-05- Yes [id number] 100mg Take 1 Univers 100 mg 2-17 12-25 tablet by ity of tablet 00:00: 05:59 mouth in [place] 00 :00 the Medical [...] Infusion, Medical ONCE, 1 Branch dose, On [facility] 05/06/22 at 1800, JOE ketorolac 2021-05 No 15mg 15 mg, Unive rs (TORADOL) 2-15 12-15 Slow IV ity of injection 22:00: 22:19 Push, [place] 15 mg 00 :00 ONCE, 1 Medical dose, On Branch [facility] 05/06/22 at 1600, JOE NaCl 0.9% 2021-05- No 1000mL at 999 Uni vers (NS) bolus 2-15 12-15 mL/hr, ity of infusion 22:00: 23:41 1,000 mL, [place] 1,000 mL 00 :00 IV Medical Infusion, Branch ONCE, 1 dose, On [facility] 05/06/22 at 1600, JOE ondansetron 2021-05- No 8mg 8 mg, Slow Univers (ZOFRAN 2-15 12-15 IV Push, ity of (PF)) 21:15: 22:19 ONCE, 1 [place] injection 8 00 :00 dose, On Medi porfirio mg [place] 05/06/22 at 1515, JOE ondansetron 2021-05 Yes [id number] 1-2 U nivers 4 mg tablet 2-15 tablets ity o f 00:00: every 8 [place] 00 hours as Medical needed for Branch nausea benzonatate 2021-05 Yes [id number] 200mg Take 1 Univers 200 mg 2-15 capsule by ity of capsule 00:00: mouth 3 [place] 00 (three) Medical times Branch daily as needed for Cough. albuterol 2021-05 Yes [id number] 2{puff} Inhale 2 Univers 90 2-15 Puffs ity of mcg/actuati 00:00: every 4 [place] on inhaler 00 (four) Medical hours as Branch needed for Wheezing or Shortness of Breath. butalbital- 2021-05 Yes [id number] 1{tbl} Take 1 Univers acetaminoph 2-15 tablet by ity of en-caff 00:00: mouth [place] 50-325-40 00 every 4 Medical mg tablet (four) Branch hours as needed (headache) . ondansetron 2021-05 Yes [id number] 1-2 U nivers 4 mg tablet 2-15 tablets ity o f 00:00: every 8 [place] 00 hours as Medical needed for Branch nausea benzonatate 2021-05 Yes [id number] 200mg Take 1 Univers 200 mg 2-15 capsule by ity of capsule 00:00: mouth 3 [place] 00 (three) Medical times Branch daily as needed for Cough. albuterol 2021-05 Yes [id number] 2{puff} Inhale 2 Univers 90 2-15 Puffs ity of mcg/actuati 00:00: every 4 [place] on inhaler 00 (four) Medical hours as Branch needed for Wheezing or Shortness of Breath. butalbital- 2021-05 Yes [id number] 1{tbl} Take 1 Univers acetaminoph 2-15 tablet by ity of en-caff 00:00: mouth [place] 50-325-40 00 every 4 Medical mg tablet (four) Branch hours as needed (headache) . ondansetron 2021-05 Yes [id number] 1-2 U nivers 4 mg tablet 2-15 tablets ity o f 00:00: every 8 [place] 00 hours as Medical needed for Branch nausea benzonatate 2021-05 Yes [id number] 200mg Take 1 Univers 200 mg 2-15 capsule by ity of capsule 00:00: mouth 3 [place] 00 (three) Medical times Branch daily as needed for Cough. albuterol 2021-05 Yes [id number] 2{puff} Inhale 2 Univers 90 2-15 Puffs ity of mcg/actuati 00:00: every 4 [place] on inhaler 00 (four) Medical hours as Branch needed for Wheezing or Shortness of Breath. butalbital- 2021-05 Yes [id number] 1{tbl} Take 1 Univers acetaminoph 2-15 tablet by ity of en-caff 00:00: mouth [place] 50-325-40 00 every 4 Medical mg tablet (four) Branch hours as needed (headache) . ondansetron 2021-05 Yes [id number] 1-2 U nivers 4 mg tablet 2-15 tablets ity o f 00:00: every 8 [place] 00 hours as Medical needed for Branch nausea benzonatate 2021-05 Yes [id number] 200mg Take 1 Univers 200 mg 2-15 capsule by ity of capsule 00:00: mouth 3 [place] 00 (three) Medical times Branch daily as needed for Cough. albuterol 2021-05 Yes [id number] 2{puff} Inhale 2 Univers 90 2-15 Puffs ity of mcg/actuati 00:00: every 4 [place] on inhaler 00 (four) Medical hours as Branch needed for Wheezing or Shortness of Breath. butalbital- 2021-05 Yes [id number] 1{tbl} Take 1 Univers acetaminoph 2-15 tablet by ity of en-caff 00:00: mouth [place] 50-325-40 00 every 4 Medical mg tablet (four) Branch hours as needed (headache) . ondansetron 2021-05 Yes [id number] 1-2 U nivers 4 mg tablet 2-15 tablets ity o f 00:00: every 8 [place] 00 hours as Medical needed for Branch nausea benzonatate 2021-05 Yes [id number] 200mg Take 1 Univers 200 mg 2-15 capsule by ity of capsule 00:00: mouth 3 [place] 00 (three) Medical times Branch daily as needed for Cough. albuterol 2021-05 Yes [id number] 2{puff} Inhale 2 Univers 90 2-15 Puffs ity of mcg/actuati 00:00: every 4 [place] on inhaler 00 (four) Medical hours as Branch needed for Wheezing or Shortness of Breath. butalbital- 2021-05 Yes [id number] 1{tbl} Take 1 Univers acetaminoph 2-15 tablet by ity of en-caff 00:00: mouth [place] 50-325-40 00 every 4 Medical mg tablet (four) Branch hours as needed (headache) . [facility] 2021-05- Yes [id number] 2{tbl} Take 2 Univers r-ritonavir 2-15 12-21 tablets by i ty of (PAXLOVID, 00:00: 05:59 [place] EUA,) 300 00 :00 the Medical mg (150 mg morning Branch x 2)-100 mg and 2 tablet tablets in the evening. Do all this for 5 days. [facility] 2021-05- Yes [id number] 2{tbl} Take 2 Univers r-ritonavir 2-15 12-21 tablets by i ty of (PAXLOVID, 00:00: 05:59 [place] A,) 300 00 :00 the Medical mg (150 mg morning Branch x 2)-100 mg and 2 tablet tablets in the evening. Do all this for 5 days. [facility] 2021-05- Yes [id number] 2{tbl} Take 2 Univers r-ritonavir 2-15 12-21 tablets by i ty of (PAXLOVID, 00:00: 05:59 [place] A,) 300 00 :00 the Medical mg (150 mg morning Branch x 2)-100 mg and 2 tablet tablets in the evening. Do all this for 5 days. [facility] 2021-05- Yes [id number] 2{tbl} Take 2 Univers r-ritonavir 2-15 12-21 tablets by i ty of (PAXLOVID, 00:00: 05:59 [place] [facility],) 300 00 :00 the Medical mg (150 mg morning Branch x 2)-100 mg and 2 tablet tablets in the evening. Do all this for 5 days. ondansetron 2021-05- No 4mg 4 mg, Univ ers (ZOFRAN-ODT 06-23 Oral, ity of ) 22:45: 21:53 ONCE, 1 [place] disintegrat 00 :00 dose, On Medi porfirio ing tablet [place] Branch 4 mg 04/22/22 at 1645, Routine amoxicillin 2021-05 Yes [id number] 1{tbl} Take 1 Univers -clavulanat 06-23 [id number] tablet by i ty of e 875-125 00:00: mouth [place] mg per 00 every 12 Medical tablet (twelve) Branch hours. ondansetron 2021-05 Yes [id number] 4mg Take 1 Univers 4 mg 2-01 [id number] tablet by ity of disintegrat 00:00: mouth [place] ing tablet 00 every 8 Medica l (eight) Branch hours as needed for Nausea and Vomiting (N/V). amoxicillin 2021-05 Yes [id number] 1{tbl} Take 1 Univers -clavulanat 2-01 [id number] tablet by i ty of e 875-125 00:00: mouth [place] mg per 00 every 12 Medical tablet (twelve) Branch hours. ondansetron 2021-05 Yes [id number] 4mg Take 1 Univers 4 mg 2-01 [id number] tablet by ity of disintegrat 00:00: mouth [place] ing tablet 00 every 8 Medica l (eight) Branch hours as needed for Nausea and Vomiting (N/V). amoxicillin 2021-05 Yes [id number] 1{tbl} Take 1 Univers -clavulanat 2-01 [id number] tablet by i ty of e 875-125 00:00: mouth [place] mg per 00 every 12 Medical tablet (twelve) Branch hours. ondansetron 2021-05 Yes [id number] 4mg Take 1 Univers 4 mg 2-01 [id number] tablet by ity of disintegrat 00:00: mouth [place] ing tablet 00 every 8 Medica l (eight) Branch hours as needed for Nausea and Vomiting (N/V). amoxicillin 2021-05 Yes [id number] 1{tbl} Take 1 Univers -clavulanat 2-01 [id number] tablet by i ty of e 875-125 00:00: mouth [place] mg per 00 every 12 Medical tablet (twelve) Branch hours. ondansetron 2021-05 Yes [id number] 4mg Take 1 Univers 4 mg 2-01 [id number] tablet by ity of disintegrat 00:00: mouth [place] ing tablet 00 every 8 Medica l (eight) Branch hours as needed for Nausea and Vomiting (N/V). amoxicillin 2021-05 Yes [id number] 1{tbl} Take 1 Univers -clavulanat 2-01 [id number] tablet by i ty of e 875-125 00:00: mouth [place] mg per 00 every 12 Medical tablet (twelve) Branch hours. ondansetron 2021-05 Yes [id number] 4mg Take 1 Univers 4 mg 2- [id number] tablet by ity of disintegrat 00:00: mouth [place] ing tablet 00 every 8 Medica l (eight) Branch hours as needed for Nausea and Vomiting (N/V). amoxicillin 2021-05 Yes [id number] 1{tbl} Take 1 Univers -clavulanat 2-01 [id number] tablet by i ty of e 875-125 00:00: mouth [place] mg per 00 every 12 Medical tablet (twelve) Branch hours. ondansetron 2021-05 Yes [id number] 4mg Take 1 Univers 4 mg 2- [id number] tablet by ity of disintegrat 00:00: mouth [place] ing tablet 00 every 8 Medica l (eight) Branch hours as needed for Nausea and Vomiting (N/V). amoxicillin 2021-05 Yes [id number] 1{tbl} Take 1 Univers -clavulanat 2-01 [id number] tablet by i ty of e 875-125 00:00: mouth [place] mg per 00 every 12 Medical tablet (twelve) Branch hours. ondansetron 2021-05 Yes [id number] 4mg Take 1 Univers 4 mg 2- 220522 tablet by ity of disintegrat 00:00: mouth [place] ing tablet 00 every 8 Medica l (eight) Branch hours as needed for Nausea and Vomiting (N/V). zoster 2021-05- Yes [id number] .5mL 0.5 mL by Univers vaccine, 0- 9104 Intr[facility]cu ity of recombinant 00:00: 04:59 lar route [place] (SHINGRIX, 00 :00 once now Medic al PF,) for 1 Branch injection dose. And repeat in 2-6 months zoster 2021-05- No [id number] .5mL 0.5 mL by Univers vaccine, 0-05 03- 9104 Intramuscu ity of recombinant 00:00: 04:59 lar route [place] (SHINGRIX, 00 :00 once now Medic al PF,) for 1 Branch injection dose. And repeat in 2-6 months zoster 2021-05- No [id number] .5mL 0.5 mL by Univers vaccine, 0-05 03- 9104 Intramuscu ity of recombinant 00:00: 04:59 lar route [place] (SHINGRIX, 00 :00 once now Medic al PF,) for 1 Branch injection dose. And repeat in 2-6 months hydralAZINE 2022-0 Yes 25mg Take 25 mg [...] mouth ity of 10 mg 19:28: daily. [place] tablet 04 Medical Branch clonazePAM 2021-0 Yes 1mg Take 1 mg Un matt (KLONOPIN) 9-27 by mouth ity o f 1 mg tablet 19:28: at [place] [address] bedtime. Medical Branch traZODone 2021-0 Yes 50mg Take 50 mg Un matt 100 mg 9-27 by mouth ity of tablet 19:28: at [place] [address] bedtime. Medical Branch hydralAZINE 2021-0 Yes 25mg Take 25 mg Univers (APRESOLINE 9-27 by mouth ity of ) 25 mg 19:28: daily. [place] tablet 04 Medical Branch lisinopril 2-0 Yes 40mg Take 40 mg U nivers (PRINIVIL,Z 9-27 by mouth 2 it y of ESTRIL) 40 19:28: (two) [place] mg tablet 04 times Medical daily. Branch metoprolol 2022-0 Yes 100mg Take 100 Un mtat tartrate 9-27 mg by ity of (LOPRESSOR) 19:28: mouth 2 [place] 100 mg 04 (two) Medical tablet times Branch daily. amLODIPine 2022-0 Yes 10mg Take 10 mg U nivers (NORVASC) 9-27 by mouth ity of 10 mg 19:28: daily. [place] tablet 04 Medical Branch clonazePAM 2-0 Yes 1mg Take 1 mg Un matt (KLONOPIN) 9-27 by mouth ity o f 1 mg tablet 19:28: at [place] [address] bedtime. Medical Branch traZODone 2021-0 Yes 50mg Take 50 mg Un matt 100 mg 9-27 by mouth ity of tablet 19:28: at [place] [address] bedtime. Medical Branch hydralAZINE 2021-0 Yes 25mg [...] o f 1 mg tablet 19:28: at [place] [address] bedtime. Medical Branch traZODone 2021-0 Yes 50mg Take 50 mg Un matt 100 mg 9-27 by mouth ity of tablet 19:28: at [place] [address] bedtime. Medical Branch hydralAZINE 2021-0 Yes 25mg [...] o f 1 mg tablet 19:28: at [place] [address] bedtime. Medical Branch traZODone 2021-0 Yes 50mg Take 50 mg Un matt 100 mg 9-27 by mouth ity of tablet 19:28: at [place] [address] bedtime. Medical Branch hydralAZINE 2021-0 Yes 25mg [...] o f 1 mg tablet 19:28: at [place] [address] bedtime. Medical Branch traZODone 2021-0 Yes 50mg Take 50 mg Un matt 100 mg 9-27 by mouth ity of tablet 19:28: at [place] [address] bedtime. Medical Branch hydralAZINE 2021-0 Yes 25mg [...] 100 mg 04 (two) Medical tablet times [place] daily. amLODIPine 2021-0 Yes 10mg Take 10 mg U nivers (NORVASC) 9-27 by mouth ity of 10 mg 19:28: daily. [place] tablet 04 Medical Branch clonazePAM 2021-0 Yes 1mg Take 1 mg Un matt (KLONOPIN) 9-27 by mouth ity o f 1 mg tablet 19:28: at [place] [address] bedtime. Medical Branch traZODone 2021-0 Yes 50mg Take 50 mg Un matt 100 mg 9-27 by mouth ity of tablet 19:28: at [place] [address] bedtime. Medical Branch hydralAZINE 2021-0 Yes 25mg [...] 100 mg 04 (two) Medical tablet times [place] daily. amLODIPine 2021-0 Yes 10mg Take 10 mg U nivers (NORVASC) 9-27 by mouth ity of 10 mg 19:28: daily. [place] tablet 04 Medical Branch clonazePAM 2021-0 Yes 1mg Take 1 mg Un matt (KLONOPIN) 9-27 by mouth ity o f 1 mg tablet 19:28: at [place] [address] bedtime. Medical Branch traZODone 2021-0 Yes 50mg Take 50 mg Un matt 100 mg 9-27 by mouth ity of tablet 19:28: at [place] [address] bedtime. Medical Branch hydralAZINE 2021-0 Yes 25mg [...] o f 1 mg tablet 19:28: at [place] [address] bedtime. Medical Branch traZODone 2021-0 Yes 50mg Take 50 mg Un matt 100 mg 9-27 by mouth ity of tablet 19:28: at [place] [address] bedtime. Medical Branch hydralAZINE 2021-0 Yes 25mg [...] 100 mg 04 (two) Medical tablet times [place] daily. amLODIPine 2021-0 Yes 10mg Take 10 mg U nivers (NORVASC) 9-27 by mouth ity of 10 mg 19:28: daily. [place] tablet 04 Medical Branch clonazePAM 2021-0 Yes 1mg Take 1 mg Un matt (KLONOPIN) 9-27 by mouth ity o f 1 mg tablet 19:28: at [place] [address] bedtime. Medical Branch traZODone 2021-0 Yes 50mg Take 50 mg Un matt 100 mg 9-27 by mouth ity of tablet 19:28: at [place] [address] bedtime. Medical Branch hydralAZINE 2021-0 Yes 25mg [...] o f 1 mg tablet 19:28: at [place] [address] bedtime. Medical Branch traZODone 2021-0 Yes 50mg Take 50 mg Un matt 100 mg 9- by mouth ity of tablet 19:28: at [place] [address] bedtime. Medical Branch hydralAZINE 2021-0 Yes 25mg Take 25 mg Univers (APRESOLINE - by mouth ity of ) 25 mg [...] o f 1 mg tablet 19:28: at [place] [address] bedtime. Medical Branch traZODone 2-0 Yes 50mg Take 50 mg Un matt 100 mg 9-27 by mouth ity of tablet 19:28: at [place] [address] bedtime. Medical Branch hydralAZINE 2-0 Yes 25mg [...] o f 1 mg tablet 19:28: at [place] [address] bedtime. Medical Branch traZODone 2-0 Yes 50mg Take 50 mg Un matt 100 mg 9-27 by mouth ity of tablet 19:28: at [place] [address] bedtime. Medical Branch hydralAZINE 2021-0 Yes 25mg [...] o f 1 mg tablet 19:28: at [place] [address] bedtime. Medical Branch traZODone 2022-0 Yes 50mg Take 50 mg Un matt 100 mg 9-27 by mouth ity of tablet 19:28: at [place] [address] bedtime. Medical Branch hydralAZINE 2021-0 Yes 25mg [...] o f 1 mg tablet 19:28: at [place] [address] bedtime. Medical Branch traZODone 2021-0 Yes 50mg Take 50 mg Un matt 100 mg 9-27 by mouth ity of tablet 19:28: at [place] [address] bedtime. Medical Branch hydralAZINE 2021-0 Yes 25mg [...] o f 1 mg tablet 19:28: at [place] [address] bedtime. Medical Branch traZODone Yes 50mg Take 50 mg Un matt 100 mg 02-16 by mouth ity of tablet 19:28: at [place] 04 bedtime. [facility] Branch cefpodoxime 2021- No [id number] 200mg Take 1 Univers 200 mg 02-16 tablet by ity of tablet 00:00: 04:59 mouth in [place] 00 :00 the Medical morning Branch and 1 tablet in the evening. Do all this for 3 days. cefpodoxime 2021- No [id number] 200mg Take 1 Univers 200 mg 02-16 [...] 00 :00 dose, On Medi porfirio mg [facility] 02/15/22 at 0400, Routine hydroCHLORO Yes 25mg 25 mg, Univ ers thiazide 9-25 Oral, ity of (ESIDRIX) 14:00: DAILY, [place] capsule 25 00 First dose Med ical mg on [facility] 02/14/22 at 0900, Until Discontinu ed, Routine butalbital- Yes 1{tbl} 1 tablet, Univers acetaminoph 9-24 Oral, ity of en-caff 18:46: Q6HPRN, [place] (ESGIC) 06 Starting Medical 50-325-40 on [facility] Branch mg tablet 1 02/13/22 at tablet 1346, Until Discontinu ed, Routine, headaches dicyclomine Yes 10mg 10 mg, Univ ers (BENTYL) 9-24 Oral, QID, ity o f capsule 10 17:00: First dose [place] mg 00 on [facility] 02/13/22 at Branch 1200, Until Discontinu ed, Routine tiZANidine Yes 4mg 4 mg, Univer s (ZANAFLEX) 9-23 Oral, Q8H, ity of tablet 4 mg 19:00: First dose [place] 00 on Tue [facility] 02/12/22 at Branch 1400, Until [...] Starting Medical on Tue02/12/22 at 1236, Until Tue02/14/22 at 1536, Routine, Pain (scale 7-10) cefTRIAXone [...] 1700, Until Discontinu ed, Routine aspirin 0 2021- No 325mg 325 mg, Unive rs E.C. 02-11 Oral, ity of (ECOTRIN) 21:33: 21:44 ONCE, [place] 325 [place] :00 dose, On Medic al mg [facility] 02/11/22 at 1645, Routine nitroglycer Yes .4mg 0.4 mg, Uni vers in 02-11 Sublingual ity of (NITROSTAT) 21:31: , Q5MIN [place] sublingual 20 PRN, Medical tablet 0.4 Starting Branc h mg on [facility] 02/11/22 at 1631, [...] of (MYCOLOG) 19:00: dose on [place] cream [facility] 02/11/22 at Branch 1400, Until Discontinu ed, Routine busPIRone 0 Yes 30mg 30 mg, Univer s (BUSPAR) 02-11 Oral, BID, ity o f tablet 30 18:00: [place] mg 00 on [facility] 02/11/22 at Branch 1300, Until Discontinu ed, Routine raltegravir 0 Yes 400mg 400 mg, Un matt (ISENTRESS) 02-11 Oral, BID, it y of tablet 400 18:00: First dose [place] mg 00 on [facility] Medical 02/11/22 at Branch 1300, Until Discontinu ed, JOE metoprolol 0 Yes 100mg 100 mg, Uni vers tartrate 02-11 Oral, BID, ity o f (LOPRESSOR) 18:00: First dose [place] tablet 100 00 on [facility] Medical mg 02/11/22 at Branch 1300, Until Discontinu ed, Routine lisinopriL 0 Yes 40mg 40 mg, Unive rs (PRINIVIL,Z 02-11 Oral, BID, it y of ESTRIL) 18:00: [place] 40 00 on [facility] Medical mg 02/11/22 at Branch 1300, Until Discontinu ed, Routine emtricitabi 0 Yes 1{tbl} 1 tablet, Univers ne-tenofovi 02-11 Oral, ity of r alafen 18:00: DAILY, [place] (DESCOVY) 00 First dose Medi porfirio tablet 1 on [facility] tablet 02/11/22 at 1300, Until Discontinu ed, Routine ipratropium 0 Yes .5mg 0.5 mg, Uni vers (ATROVENT) 02-11 Inhalation ity of 0.02 % 17:57: , QIDPRN, [place] nebulizer 10 Starting Medica l solution on [facility] Branch 0.5 mg 02/11/22 at 1257, Until Discontinu ed, Routine, Wheezing, Shortness of Breath amLODIPine 0 Yes 10mg 10 mg, Unive rs (NORVASC) 02-11 Oral, ity of tablet 10 17:30: DAILY, [place] mg 00 First dose Medical (after Branch last modificati on) on [facility] 02/11/22 at 1230, Until Discontinu ed, Routine hydrALAZINE 2021- No 25mg 25 mg, Uni vers (APRESOLINE 02-11 Oral, ity of ) tablet 25 17:30: 12:54 DAILY, [place] mg 00 :55 First dose Medical (after Branch last modificati on) on [facility] 02/11/22 at 1230, Until Discontinu ed, Routine HYDROcodone 2021- No 1{tbl} 1 tablet, Univers -acetaminop 02-11 Oral, ity of hen (NORCO 14:11: 17:37 Q6HPRN, [place] 5) 5-325 mg 03 :24 Starting Medi porfirio tablet 1 on [place] Branch tablet 02/11/22 at 0911, Until 02/12/22 [...] 02-11 IV Push, ity of (PF)) 14:05: [place] injection 4 59 Starting Medi porfirio mg on [place] Branch 02/11/22 at 0905, Until Discontinu ed, Routine, Nausea and Vomiting (N/V) acetaminoph 0 Yes 650mg 650 mg, Un matt en 02-11 Oral, ity of (TYLENOL) 14:04: [place], [place] tablet 650 37 Starting Medic al mg on [place] Branch 02/11/22 at 0904, Until Discontinu ed, Routine, Pain (scale 1-3) lisinopril Yes 40mg Take 40 mg U [...] ity of ) 25 mg 09:10: daily. [place] tablet 54 [facility] Branch amLODIPine Yes 10mg Take 10 mg U nivers (NORVASC) 02-11 by mouth ity of 10 mg 09:10: daily. [facility] 54 [facility] Branch piperacilli 2021- No 3.375g [...] of therapy: 72 hours iopamidol 2021- No [id number] 60mL 60 mL, Univers (ISOVUE 02-11 Intravenou [...] Branch 02/11/22 at 0015, JOE emtricitabi Yes [id number] Take one Univers ne-tenofovi 9-12 po daily ity of r alafen 00:00: [place] (DESCOVY) 00 Medical tablet Branch emtricitabi Yes [id number] Take one Univers ne-tenofovi 9-12 po daily ity of r alafen 00:00: [place] (DESCOVY) 00 Medical tablet Branch emtricitabi Yes [id number] Take one Univers ne-tenofovi 9-12 po daily ity of r alafen 00:00: [place] (DESCOVY) 00 Medical tablet Branch emtricitabi Yes [id number] Take one Univers ne-tenofovi 9-12 po daily ity of r alafen 00:00: [place] (DESCOVY) 00 Medical tablet Branch emtricitabi Yes [id number] Take one Univers ne-tenofovi 9-12 po daily ity of r alafen 00:00: [place] (DESCOVY) 00 Medical tablet Branch emtricitabi Yes [id number] Take one Univers ne-tenofovi 9-12 po daily ity of r alafen 00:00: [place] (DESCOVY) 00 Medical tablet Branch emtricitabi Yes [id number] Take one Univers ne-tenofovi 9-12 po daily ity of r alafen 00:00: [place] (DESCOVY) 00 Medical tablet Branch emtricitabi Yes [id number] Take one Univers ne-tenofovi 9-12 po daily ity of r alafen 00:00: [place] (DESCOVY) 00 Medical tablet Branch emtricitabi Yes [id number] Take one Univers ne-tenofovi 9-12 po daily ity of r alafen 00:00: [place] (DESCOVY) 00 Medical tablet Branch emtricitabi Yes [id number] Take one Univers ne-tenofovi 9-12 po daily ity of r alafen 00:00: [place] (DESCOVY) 00 Medical tablet Branch emtricitabi Yes [id number] Take one Univers ne-tenofovi 9-12 po daily ity of r alafen 00:00: [place] (DESCOVY) 00 Medical tablet Branch emtricitabi Yes [id number] Take one Univers ne-tenofovi 9-12 po daily ity of r alafen 00:00: [place] (DESCOVY) 00 Medical tablet Branch emtricita Yes [id number] Take one Univers ne-tenofovi 9-12 po daily ity of r alafen 00:00: [place] (DESCOVY) 00 Medical tablet Branch emtricitabi Yes [id number] Take one Univers ne-tenofovi 9-12 po daily ity of r alafen 00:00: [place] (DESCOVY) 00 Medical tablet Branch emtricitabi Yes [id number] Take one Univers ne-tenofovi 9-12 po daily ity of r alafen 00:00: [place] (DESCOVY) 00 Medical tablet Branch emtricitabi Yes [id number] Take one Univers ne-tenofovi 9-12 po daily ity of r alafen 00:00: [place] (DESCOVY) 00 Medical tablet Branch naproxen Yes [id number] 500mg Take 1 U nivers (NAPROSYN) 7-24 tablet by ity of 500 mg 00:00: mouth in [place] tablet 00 the Medical morning Branch and 1 tablet in the evening. Take with meals. methocarbam 2022-0 Yes [id number] 500mg Take 1 Univers oL 500 mg 7-24 tablet by ity o f tablet 00:00: mouth 4 [place] ([facility]) Medical times [place] daily. naproxen 2022-0 Yes [id number] 500mg Take 1 U nivers (NAPROSYN) 7-24 tablet by ity of 500 mg 00:00: mouth in [place] tablet 00 the Medical morning Branch and 1 tablet in the evening. Take with meals. methocarbam 2022-0 Yes [id number] 500mg Take 1 Univers oL 500 mg 7-24 tablet by ity o f tablet 00:00: mouth 4 [place] ([facility]) Medical times [place] daily. naproxen 2022-0 Yes [id number] 500mg Take 1 U nivers (NAPROSYN) 7-24 tablet by ity of 500 mg 00:00: mouth in [place] tablet 00 the Medical morning Branch and 1 tablet in the evening. Take with meals. methocarbam 2-0 Yes [id number] 500mg Take 1 Univers oL 500 mg 7-24 tablet by ity o f tablet 00:00: mouth 4 [place] ([facility] times [place] daily. naproxen 2022-0 2022- No [id number] 500mg Take 1 Univers (NAPROSYN) 7-24 10-14 tablet by ity of 500 mg 00:00: 00:00 mouth in [place] tablet 00 :00 the [facility] morning Branch and 1 tablet in the evening. Take with meals. methocarbam 2022-0 2022- No [id number] 500mg Take 1 Univers oL 500 mg 7-24 10-14 tablet by ity of tablet 00:00: 00:00 mouth 4 [place] 00 :00 ([facility]) Medical times [place] daily. naproxen 2022-0 2022- No [id number] 500mg Take 1 Univers (NAPROSYN) 7-24 10-14 tablet by ity of 500 mg 00:00: 00:00 mouth in [place] tablet 00 :00 the Medical morning Branch and 1 tablet in the evening. Take with meals. methocarbam 2022-0 2022- No [id number] 500mg Take 1 Univers oL 500 mg 7-24 10-14 tablet by ity of tablet 00:00: 00:00 mouth 4 [place] 00 :00 ([facility]) Medical times [place] daily. esomeprazol No 40mg Take 40 mg Univers e [...] Medical daily. Branch traZODONE No Take by [facility] [place] ers (DESYREL) 11-20 mouth at ity o f 10 mg/mL 09:10: 00:00 [place]time[place] oral 28 :00 Medical suspension Branch hydralAZINE Yes 25mg Take 25 mg Univers (APRESOLINE 11-20 by mouth ity of ) 25 mg 08:47: daily. [place] tablet 47 Medical Branch cephALEXin 2021- No [id number] 500mg Take 1 Univers (KEFLEX) 10-24 capsule [...] 7-10). Indication s: acute pain buPROPion Yes [id number] 150mg Take 1 U nivers XL 4-12 tablet by ity of (WELLBUTRIN 00:00: mouth [place] XL) 150 mg 00 daily. Medical 24 hr Branch tablet busPIRone Yes [id number] 30mg Take 1 Un matt 30 mg 4-12 tablet by ity of tablet 00:00: mouth 2 [place] 00 (two) Medical times Branch daily. SERTraline 2021-0 Yes [id number] 200mg Take 2 Univers 100 mg 4-12 tablets by ity of tablet 00:00: mouth [place] 00 daily. Medical Branch buPROPion 2021-0 Yes [id number] 150mg Take 1 U nivers XL 4-12 tablet by ity of (WELLBUTRIN 00:00: mouth [place] XL) 150 mg 00 daily. Medical 24 hr Branch tablet busPIRone 2021-0 Yes [id number] 30mg Take 1 Un matt 30 mg 4-12 tablet by ity of tablet 00:00: mouth 2 [place] 00 (two) Medical times Branch daily. SERTraline 2021-0 Yes [id number] 200mg Take 2 Univers 100 mg 4-12 tablets by ity of tablet 00:00: mouth [place] 00 daily. Medical Branch buPROPion 2021-0 Yes [id number] 150mg Take 1 U nivers XL 4-12 tablet by ity of (WELLBUTRIN 00:00: mouth [place] XL) 150 mg 00 daily. Medical 24 hr Branch tablet busPIRone 2021-0 Yes [id number] 30mg Take 1 Un matt 30 mg 4-12 tablet by ity of tablet 00:00: mouth 2 00 (two) Medical times Branch daily. SERTraline 2021-0 Yes [id number] 200mg Take 2 Univers 100 mg 4-12 tablets by ity of tablet 00:00: mouth [place] 00 daily. Medical Branch buPROPion 2021-0 Yes [id number] 150mg Take 1 U nivers XL 4-12 tablet by ity of (WELLBUTRIN 00:00: mouth [place] XL) 150 mg 00 daily. Medical 24 hr Branch tablet busPIRone 2021-0 Yes [id number] 30mg Take 1 Un matt 30 mg 4-12 tablet by ity of tablet 00:00: mouth 2 [place] 00 (two) Medical times Branch daily. SERTraline 2021-0 Yes [id number] 200mg Take 2 Univers 100 mg 4-12 tablets by ity of tablet 00:00: mouth [place] 00 daily. Medical Branch buPROPion 2021-0 Yes [id number] 150mg Take 1 U nivers XL 4-12 tablet by ity of (WELLBUTRIN 00:00: mouth [place] XL) 150 mg 00 daily. Medical 24 hr Branch tablet busPIRone 2021-0 Yes [id number] 30mg Take 1 Un matt 30 mg 4-12 tablet by ity of tablet 00:00: mouth 2 [place] 00 (two) Medical times Branch daily. SERTraline 2021-0 Yes [id number] 200mg Take 2 Univers 100 mg 4-12 tablets by ity of tablet 00:00: mouth [place] 00 daily. Medical Branch buPROPion 2021-0 Yes [id number] 150mg Take 1 U nivers XL 4-12 tablet by ity of (WELLBUTRIN 00:00: mouth [place] XL) 150 mg 00 daily. Medical 24 hr Branch tablet busPIRone 2021-0 Yes [id number] 30mg Take 1 Un matt 30 mg 4-12 tablet by ity of tablet 00:00: mouth 2 (two) Medical times Branch daily. SERTraline 2021-0 Yes [id number] 200mg Take 2 Univers 100 mg 4-12 tablets by ity of tablet 00:00: mouth [place] 00 daily. Medical Branch buPROPion 2021-0 Yes [id number] 150mg Take 1 U nivers XL 4-12 tablet by ity of (WELLBUTRIN 00:00: mouth [place] XL) 150 mg 00 daily. Medical 24 hr Branch tablet busPIRone 2021-0 Yes [id number] 30mg Take 1 Un matt 30 mg 4-12 tablet by ity of tablet 00:00: mouth 2 [place] 00 (two) Medical times Branch daily. SERTraline 2021-0 Yes [id number] 200mg Take 2 Univers 100 mg 4-12 tablets by ity of tablet 00:00: mouth [place] 00 daily. Medical Branch buPROPion 2021-0 Yes [id number] 150mg Take 1 U nivers XL 4-12 tablet by ity of (WELLBUTRIN 00:00: mouth [place] XL) 150 mg 00 daily. Medical 24 hr Branch tablet busPIRone 2021-0 Yes [id number] 30mg Take 1 Un matt 30 mg 4-12 tablet by ity of tablet 00:00: mouth 2 [place] 00 (two) Medical times Branch daily. SERTraline 2021-0 Yes [id number] 200mg Take 2 Univers 100 mg 4-12 tablets by ity of tablet 00:00: mouth [place] 00 daily. Medical Branch buPROPion 2021-0 Yes [id number] 150mg Take 1 U nivers XL 4-12 tablet by ity of (WELLBUTRIN 00:00: mouth [place] XL) 150 mg 00 daily. Medical 24 hr Branch tablet busPIRone 2021-0 Yes [id number] 30mg Take 1 Un matt 30 mg 4-12 tablet by ity of tablet 00:00: mouth 2 [place] 00 (two) Medical times Branch daily. SERTraline 2021-0 Yes [id number] 200mg Take 2 Univers 100 mg 4-12 tablets by ity of tablet 00:00: mouth [place] 00 daily. Medical Branch buPROPion 2021-0 Yes [id number] 150mg Take 1 U nivers XL 4-12 tablet by ity of (WELLBUTRIN 00:00: mouth [place] XL) 150 mg 00 daily. Medical 24 hr Branch tablet busPIRone 2021-0 Yes [id number] 30mg Take 1 Un matt 30 mg 4-12 tablet by ity of tablet 00:00: mouth 2 00 (two) Medical times Branch daily. SERTraline 2021-0 Yes [id number] 200mg Take 2 Univers 100 mg 4-12 tablets by ity of tablet 00:00: mouth [place] 00 daily. Medical Branch buPROPion 2021-0 Yes [id number] 150mg Take 1 U nivers XL 4-12 tablet by ity of (WELLBUTRIN 00:00: mouth [place] XL) 150 mg 00 daily. Medical 24 hr Branch tablet busPIRone 2021-0 Yes [id number] 30mg Take 1 Un matt 30 mg 4-12 tablet by ity of tablet 00:00: mouth 2 [place] 00 (two) Medical times Branch daily. SERTraline 2021-0 Yes [id number] 200mg Take 2 Univers 100 mg 4-12 tablets by ity of tablet 00:00: mouth [place] 00 daily. Medical Branch buPROPion 2021-0 Yes [id number] 150mg Take 1 U nivers XL 4-12 tablet by ity of (WELLBUTRIN 00:00: mouth [place] XL) 150 mg 00 daily. Medical 24 hr Branch tablet busPIRone 2021-0 Yes [id number] 30mg Take 1 Un matt 30 mg 4-12 tablet by ity of tablet 00:00: mouth 2 [place] 00 (two) Medical times Branch daily. SERTraline 2022-0 Yes [id number] 200mg Take 2 Univers 100 mg 4-12 tablets by ity of tablet 00:00: mouth [place] 00 daily. Medical Branch buPROPion 0 Yes [id number] 150mg Take 1 U nivers XL 4-12 tablet by ity of (WELLBUTRIN 00:00: mouth [place] XL) 150 mg 00 daily. Medical 24 hr Branch tablet busPIRone 0 Yes [id number] 30mg Take 1 Un matt 30 mg 4-12 tablet by ity of tablet 00:00: mouth 2 [place] 00 (two) Medical times Branch daily. SERTraline Yes [id number] 200mg Take 2 Univers 100 mg 4-12 tablets by ity of tablet 00:00: mouth [place] 00 daily. Medical Branch buPROPion Yes [id number] 150mg Take 1 U nivers XL 4-12 tablet by ity of (WELLBUTRIN 00:00: mouth [place] XL) 150 mg 00 daily. Medical 24 hr Branch tablet busPIRone 0 Yes [id number] 30mg Take 1 Un matt 30 mg 4-12 tablet by ity of tablet 00:00: mouth 2 [place] 00 (two) Medical times Branch daily. SERTraline Yes [id number] 200mg Take 2 Univers 100 mg 4-12 tablets by ity of tablet 00:00: mouth [place] 00 daily. Medical Branch buPROPion 0 Yes [id number] 150mg Take 1 U nivers XL 4-12 tablet by ity of (WELLBUTRIN 00:00: mouth [place] XL) 150 mg 00 daily. Medical 24 hr Branch tablet busPIRone 0 Yes [id number] 30mg Take 1 Un matt 30 mg 4-12 tablet by ity of tablet 00:00: mouth 2 [place] 00 (two) Medical times Branch daily. SERTraline 0 Yes [id number] 200mg Take 2 Univers 100 mg 4-12 tablets by ity of tablet 00:00: mouth [place] 00 daily. Medical Branch buPROPion 0 Yes [id number] 150mg Take 1 U nivers XL 4-12 tablet by ity of (WELLBUTRIN 00:00: mouth [place] XL) 150 mg 00 daily. Medical 24 hr Branch tablet busPIRone 2022-0 Yes [id number] 30mg Take 1 Un matt 30 mg 4-12 tablet by ity of tablet 00:00: mouth 2 [place] 00 (two) Medical times Branch daily. SERTraline 2021-0 Yes [id number] 200mg Take 2 Univers 100 mg 4-12 tablets by ity of tablet 00:00: mouth [place] 00 daily. Medical Branch buPROPion 2021-0 Yes [id number] 150mg Take 1 U nivers XL 4-12 tablet by ity of (WELLBUTRIN 00:00: mouth [place] XL) 150 mg 00 daily. Medical 24 hr Branch tablet busPIRone 2021-0 Yes [id number] 30mg Take 1 Un matt 30 mg 4-12 tablet by ity of tablet 00:00: mouth 2 [place] 00 (two) Medical times Branch daily. SERTraline 2021-0 Yes [id number] 200mg Take 2 Univers 100 mg 4-12 tablets by ity of tablet 00:00: mouth [place] 00 daily. Medical Branch raltegravir 0 Yes [id number] 400mg Take 1 Univers (ISENTRESS) 3-28 tablet by ity of 400 mg 00:00: mouth 2 [place] tablet 00 (two) Medical times Branch daily. raltegravir 2021-0 Yes [id number] 400mg Take 1 Univers (ISENTRESS) 3-28 tablet by ity of 400 mg 00:00: mouth 2 [place] tablet 00 (two) Medical times Branch daily. raltegravir 2021-0 Yes [id number] 400mg Take 1 Univers (ISENTRESS) 3-28 tablet by ity of 400 mg 00:00: mouth 2 [place] tablet 00 (two) Medical times Branch daily. raltegravir 2021-0 Yes [id number] 400mg Take 1 Univers (ISENTRESS) 3-28 tablet by ity of 400 mg 00:00: mouth 2 [place] tablet 00 (two) Medical times Branch daily. raltegravir 2021-0 Yes [id number] 400mg Take 1 Univers (ISENTRESS) 3-28 tablet by ity of 400 mg 00:00: mouth 2 [place] tablet 00 (two) Medical times Branch daily. raltegravir 2021-0 Yes [id number] 400mg Take 1 Univers (ISENTRESS) 3-28 tablet by ity of 400 mg 00:00: mouth 2 [place] tablet 00 (two) Medical times Branch daily. raltegravir 2022-0 Yes [id number] 400mg Take 1 Univers (ISENTRESS) 3-28 tablet by ity of 400 mg 00:00: mouth 2 [place] tablet 00 (two) Medical times Branch daily. raltegravir 2022-0 Yes [id number] 400mg Take 1 Univers (ISENTRESS) 3-28 tablet by ity of 400 mg 00:00: mouth 2 [place] tablet 00 (two) Medical times Branch daily. raltegravir 2-0 Yes [id number] 400mg Take 1 Univers (ISENTRESS) 3-28 tablet by ity of 400 mg 00:00: mouth 2 [place] tablet 00 (two) Medical times Branch daily. raltegravir 2-0 Yes [id number] 400mg Take 1 Univers (ISENTRESS) 3-28 tablet by ity of 400 mg 00:00: mouth 2 [place] tablet 00 (two) Medical times Branch daily. raltegravir 2-0 Yes [id number] 400mg Take 1 Univers (ISENTRESS) 3-28 tablet by ity of 400 mg 00:00: mouth 2 [place] tablet 00 (two) Medical times Branch daily. raltegravir 2-0 Yes [id number] 400mg Take 1 Univers (ISENTRESS) 3-28 tablet by ity of 400 mg 00:00: mouth 2 [place] tablet 00 (two) Medical times Branch daily. raltegravir 2-0 Yes [id number] 400mg Take 1 Univers (ISENTRESS) 3-28 tablet by ity of 400 mg 00:00: mouth 2 [place] tablet 00 (two) Medical times Branch daily. raltegravir 2022-0 Yes [id number] 400mg Take 1 Univers (ISENTRESS) 3-28 tablet by ity of 400 mg 00:00: mouth 2 [place] tablet 00 (two) Medical times Branch daily. raltegravir 2022-0 Yes [id number] 400mg Take 1 Univers (ISENTRESS) 3-28 tablet by ity of 400 mg 00:00: mouth 2 [place] tablet 00 (two) Medical times Branch daily. raltegravir 2022-0 Yes [id number] 400mg Take 1 Univers (ISENTRESS) 3-28 tablet by ity of 400 mg 00:00: mouth 2 [place] tablet 00 (two) Medical times Branch daily. raltegravir 2022-0 Yes [id number] 400mg Take 1 Univers (ISENTRESS) 3-28 tablet by ity of 400 mg 00:00: mouth 2 [place] tablet 00 (two) Medical times Branch daily. LORazepam 1 2021- No [id number] 1mg Take 1 Univers mg tablet 3-10 [...] times a tablet day. emtricitabi 2021- No [id number] Take one Univers ne-tenofovi 1-20 09-12 po daily ity of r alafen 00:00: 00:00 [place] (DESCOVY) 00 :00 Medical tablet Branch metoprolol Yes [id number] Take 1 [place] tartrate 7-26 tablet Health (Lopressor) 00:00: (100 mg 100 MG 00 total) by tablet mouth 2 (two) times a day AND 0.5 tablets (50 mg total) every night. metoprolol Yes [id number] Take 1 [place] tartrate 7-26 tablet Health [...] area in groin) hydrALAZINE 0 Yes 50mg Q.[id number] Take 50 mg [facility] (APRESOLINE 7-19 [id number] [address] mouth [facility] ) 50 MG [...] (affected area in groin) hydrALAZINE Yes 50mg Q.[id number] Take 50 mg [facility] (APRESOLINE 7-19 [id number] [address] mouth [facility] ) 50 MG [...] area in groin) hydrALAZINE 0 Yes 50mg Q.[id number] Take 50 mg [facility] (APRESOLINE 7-[id number] mouth [facility] ) 50 MG [...] area in groin) hydrALAZINE 0 Yes 50mg Q.[id number] Take 50 mg [facility] (APRESOLINE 7-19 [id number] mouth [facility] ) 50 MG [...] (affected area in groin) hydrALAZINE Yes 50mg Q.[id number] Take 50 mg [facility] (APRESOLINE 7-19 [id number] mouth [facility] ) 50 MG [...] area in groin) hydrALAZINE 0 Yes 50mg Q.[id number] Take 50 mg [facility] (APRESOLINE 7-[id number] mouth [facility] [address] ) 50 MG [...] area in groin) hydrALAZINE 0 Yes 50mg Q.[id number] Take 50 mg [facility] (APRESOLINE 7-[id number] mouth [facility] [address] ) 50 MG [...] (affected area in groin) hydrALAZINE Yes 50mg Q.[id number] Take 50 mg [facility] (APRESOLINE 7-[id number] mouth [facility] ) 50 MG [...] area in groin) hydrALAZINE 0 Yes 50mg Q.[id number] Take 50 mg [facility] (APRESOLINE 7-19 [id number] mouth [address] ) 50 MG [...] area in groin) hydrALAZINE 2021-0 Yes 50mg Q.[id number] Take 50 mg [facility] (APRESOLINE 7-19 [id number] mouth [facility] ) 50 MG [...] (affected area in groin) hydrALAZINE Yes 50mg Q.[id number] Take 50 mg [facility] (APRESOLINE 7-19 [id number] mouth [facility] [address] ) 50 MG [...] area in groin) hydrALAZINE 0 Yes 50mg Q.[id number] Take 50 mg [facility] (APRESOLINE 7-[id number] mouth [facility] ) 50 MG [...] area in groin) hydrALAZINE 0 Yes 50mg Q.[id number] Take 50 mg [facility] (APRESOLINE 7-[id number] [address] mouth [facility] ) 50 MG [...] (affected area in groin) hydrALAZINE Yes 50mg Q.[id number] Take 50 mg [facility] (APRESOLINE 7-[id number] mouth [facility] [address] ) 50 MG [...] (affected area in groin) hydrALAZINE Yes 50mg Q.[id number] Take 50 mg [facility] (APRESOLINE 7-[id number] mouth [facility] [address] ) 50 MG [...] area in groin) hydrALAZINE 0 Yes 50mg Q.[id number] Take 50 mg [facility] (APRESOLINE 7-[id number] mouth [address] ) 50 MG [...] area in groin) hydrALAZINE 0 Yes 50mg Q.[id number] Take 50 mg [facility] (APRESOLINE 7-[id number] mouth [address] ) 50 MG [...] (affected area in groin) hydrALAZINE Yes 50mg Q.[id number] Take 50 mg [facility] (APRESOLINE 7-[id number] mouth [address] ) 50 MG [...] (affected area in groin) hydrALAZINE Yes 50mg Q.[id number] Take 50 mg [facility] (APRESOLINE 7-[id number] mouth [address] ) 50 MG [...] area in groin) hydrALAZINE 2020-0 Yes 50mg Q.[id number] Take 50 mg [facility] (APRESOLINE 7-[id number] mouth [address] ) 50 MG [...] (affected area in groin) hydrALAZINE Yes 50mg Q.[id number] Take 50 mg [facility] (APRESOLINE 7-[id number] mouth [address] ) 50 MG [...] area in groin) hydrALAZINE 0 Yes 50mg Q.[id number] Take 50 mg [facility] (APRESOLINE 7-[id number] mouth [address] ) 50 MG [...] area in groin) hydrALAZINE 0 Yes 50mg Q.[id number] Take 50 mg [facility] (APRESOLINE 7-[id number] mouth [address] ) 50 MG [...] (affected area in groin) hydrALAZINE Yes 50mg Q.[id number] Take 50 mg [facility] (APRESOLINE 7-[id number] mouth [address] ) 50 MG [...] (affected area in groin) hydrALAZINE Yes 50mg Q.[id number] Take 50 mg [facility] (APRESOLINE 7-[id number] mouth [address] ) 50 MG [...] area in groin) hydrALAZINE 0 Yes 50mg Q.[id number] Take 50 mg [facility] (APRESOLINE 7-[id number] mouth [address] ) 50 MG [...] (affected area in groin) hydrALAZINE Yes 50mg Q.[id number] Take 50 mg [facility] (APRESOLINE 7-[id number] mouth [address] ) 50 MG [...] (affected area in groin) hydrALAZINE Yes 50mg Q.[id number] Take 50 mg [facility] (APRESOLINE 7-[id number] mouth [address] ) 50 MG [...] tablet 25 times a l day. metoprolol 2021-0 Yes 100mg Q.5D Take 100 [facility] tartrate 7-[address] (LOPRESSOR) 10:51: mouth 2 [facility] 100 mg 25 (two) l tablet times a day. amLODIPine 1-0 Yes 10mg QD Take 10 mg M ethodi (NORVASC) 7-[address] 10 mg 10:51: [facility]. [facility] tablet 25 l nystatin-tr 2021-0 Yes [id number] Apply to Univers iamcinolone 7-06 area(s) 3 ity of cream 00:00: (three) [place] 00 times Medical daily. Branch nystatin-tr 2021-0 Yes [id number] Apply to Univers iamcinolone 7-06 area(s) 3 ity of cream 00:00: (three) [place] 00 times Medical daily. Branch nystatin-tr 2021-0 Yes [id number] Apply to Univers iamcinolone 7-06 area(s) 3 ity of cream 00:00: (three) [place] 00 times Medical daily. Branch nystatin-tr 2021-0 Yes [id number] Apply to Univers iamcinolone 7-06 area(s) 3 ity of cream 00:00: (three) [place] 00 times Medical daily. Branch nystatin-tr 2021-0 Yes [id number] Apply to Univers iamcinolone 7-06 area(s) 3 ity of cream 00:00: (three) [place] 00 times Medical daily. Branch nystatin-tr 2021-0 Yes [id number] Apply to Univers iamcinolone 7-06 area(s) 3 ity of cream 00:00: (three) [place] 00 times Medical daily. Branch nystatin-tr 2021-0 Yes [id number] Apply to Univers iamcinolone 7-06 area(s) 3 ity of cream 00:00: (three) [place] 00 times Medical daily. Branch nystatin-tr 2021-0 Yes [id number] Apply to Univers iamcinolone 7-06 area(s) 3 ity of cream 00:00: (three) [place] 00 times Medical daily. Branch nystatin-tr 2021-0 Yes [id number] Apply to Univers iamcinolone 7-06 area(s) 3 ity of cream 00:00: (three) [place] 00 times Medical daily. Branch nystatin-tr 2021-0 Yes [id number] Apply to Univers iamcinolone 7-06 area(s) 3 ity of cream 00:00: (three) [place] 00 times Medical daily. Branch nystatin-tr 2021-0 Yes [id number] Apply to [facility] iamcinolone 7-06 area(s) 3 ity of cream 00:00: (three) [place] 00 times Medical daily. Branch nystatin-tr 2021-0 Yes [id number] Apply to [facility] iamcinolone 7-06 area(s) 3 ity of cream 00:00: (three) [place] 00 times Medical daily. Branch nystatin-tr 2021-0 Yes [id number] Apply to [facility] iamcinolone 7-06 area(s) 3 ity of cream 00:00: (three) [place] 00 times Medical daily. Branch nystatin-tr 2021-0 Yes [id number] Apply to [facility] iamcinolone 7-06 area(s) 3 ity of cream 00:00: (three) [place] 00 times Medical daily. Branch nystatin-tr 2021-0 Yes [id number] Apply to [facility] iamcinolone 7-06 area(s) 3 ity of cream 00:00: (three) [place] 00 times Medical daily. Branch nystatin-tr 2021-0 Yes [id number] Apply to [facility] iamcinolone 7-06 area(s) 3 ity of cream 00:00: (three) [place] 00 times Medical daily. Branch nystatin-tr 2021-0 Yes [id number] Apply to [facility] iamcinolone 7-06 area(s) 3 ity of cream 00:00: (three) [place] 00 times Medical daily. Branch budesonide- 0 2021- No 1{puff} QD Inhale 1 [facility] formoteroL 11-14 06-[address] (SYMBICORT) 14:37: 00:00 morning. H ospita 160-4.5 02 :00 l mcg/actuati on inhaler hydrALAZINE 2020-0 Yes [id number] 50mg Q.[id number] Take 1 [place] (Apresoline 6- [id number] tablet (50 Health ) 50 MG 00:00: 3D mg total) tablet 00 by mouth 3 (three) times a day. hydrALAZINE 0 Yes [id number] 50mg Q.[id number] Take 1 [place] (Apresoline 6- [id number] tablet (50 Health ) 50 MG 00:00: [...] Health 2 % 00:00: ointment 00 mupirocin 2021-0 Yes [place] (Bactroban) 5-28 Health 2 % 00:00: ointment 00 nystatin 2020- No [id number] Q.25D Take 5 mL [facility] (MYCOSTATIN 10-06 0601 (500,000 st ) 100,000 00:00: 04:59 Units [...] e 4-10 Tablet l 14:00: should not [place] 00 be chewed or crushed. (Same as: [...] ia 4-10 (Same as: l 14:00: Zoloft) [place] 00 pantoprazol No Notes: Caesar lisa e 4-10 Tablet l 14:00: should not [place] 00 be chewed or crushed. (Same as: Protonix) Amiodarone No Notes: Memor ia 4-10 (Same as: l 14:00: Cordarone) [place] Amlodipine No Notes: Memor ia 4-10 (Same as: l 14:00: Norvasc) [place] emtricitabi No Notes: Caesar lisa ne 200 MG / 4-10 (Same as: l tenofovir 14:00: Descovy) Herm ariel alafenamide 00 Non-formul 25 MG Oral nancy Tablet [Descovy] Sertraline No Notes: Memor ia 4-10 (Same as: l 14:00: Zoloft) [place] pantoprazol No Notes: [place] lisa e 4-10 Tablet l 14:00: should not [place] 00 be chewed or crushed. (Same as: Protonix) Amiodarone No Notes: Memor ia 4-10 (Same as: l 14:00: Cordarone) [place] Amlodipine No Notes: Memor ia 4-10 (Same as: l 14:00: Norvasc) [place] emtricitabi No Notes: Caesar lisa ne 200 MG / 4-10 (Same as: l tenofovir 14:00: Descovy) Herm ariel alafenamide 00 Non-formul 25 MG Oral nancy Tablet [Descovy] Sertraline No Notes: Memor ia 4-10 (Same as: l 14:00: Zoloft) [place] pantoprazol No Notes: Caesar lisa e 4-10 Tablet l 14:00: should not [place] 00 be chewed or crushed. (Same as: Protonix) Amiodarone No Notes: Memor ia 4-10 (Same as: l 14:00: Cordarone) [place] Amlodipine No Notes: Memor ia 4-10 (Same as: l 14:00: Norvasc) [place] emtricitabi No Notes: Caesar lisa ne 200 [...] ia 4-10 (Same as: l 14:00: Cordarone) [place] Sucralfate No Notes: May M emoria 4-10 interfere l 02:00: w/enteral [place] 00 feeds - Take 1 hr before or 2 hr after antacids, dairy pdt, meals & minerals - On empty stomach. For patients unable to swallow tablet, dissolve in 10mL - 30mL of water or juice and stir before giving. (Same As: Carafate) Saline No Notes: Memoria Flush 0.9% 4-10 (Same as: l 02:00: BD [place] 00 Posiflush) Eliquis No Notes: Memoria 4-10 [...] 0.9% 4-10 (Same as: l 02:00: BD [place] 00 Posiflush) Eliquis No Notes: Memoria 4-10 Same as: l 02:00: Eliquis [place] Hydralazine No Notes: Caesar lisa Hydrochlori 4-10 [...] 0.9% 4-10 (Same as: l 02:00: BD [place] 00 Posiflush) Eliquis No Notes: Memoria 4-10 Same as: l 02:00: Eliquis Marty Hydralazine No Notes: Caesar lisa Hydrochlori 4-10 (Same as: l de 50 MG 02:00: Apresoline Her mitchell Oral Tablet 00 ) May interfere w/enteral feedings Take With Food Sucralfate No Notes: May M emoria 4-10 interfere l 02:00: w/enteral [place] 00 feeds - Take 1 hr before [...] M emoria 4-10 interfere l 02:00: w/enteral [place] 00 feeds - Take 1 hr before [...] Memoria 4-10 Same as: l 02:00: Eliquis [place] Hydralazine No Notes: Caesar lisa Hydrochlori 4-10 [...] Memoria 4-10 Same as: l 02:00: Eliquis [place] 00 Hydralazine No Notes: Caesar lisa Hydrochlori [...] 0.9% 4-10 (Same as: l 02:00: BD [place] Posiflush) Eliquis No Notes: Memoria 4-10 Same as: l 02:00: Eliquis Hydralazine No Notes: Caesar lisa Hydrochlori 4-10 (Same as: l de 50 MG 02:00: Apresoline Her mitchell Oral Tablet 00 ) May interfere w/enteral feedings Take With Food acetaminoph No Notes: Do M emoria en-codeine 4-10 not exceed l #3 00:12: 4gm/day of [place] acetaminop hen. (Same as: Tylenol with Codeine # 3) acetaminoph No Notes: Do M emoria en-codeine 4-10 not exceed l #3 00:12: 4gm/day of [place] acetaminop hen. (Same as: Tylenol with Codeine # 3) acetaminoph No Notes: Do M emoria en-codeine 4-10 not exceed l #3 00:12: 4gm/day of [place] acetaminop hen. (Same as: Tylenol with Codeine # 3) acetaminoph No Notes: Do M emoria en-codeine 4-10 not exceed l #3 00:12: 4gm/day of [place] acetaminop hen. (Same as: Tylenol with Codeine [...] not exceed l #3 00:12: 4gm/day of [place] acetaminop hen. (Same as: Tylenol with Codeine [...] oria - tab, l 22:00: Route: PO, [place] 00 Drug form: TAB, BID, Dosing Weight 97.273, kg, Start date: 08/29/20 17:00:00 CDT, Duration: 30 day, Stop date: 09/28/20 9:00:00 CDT metoprolol 2021-0 No 100 mg, 1 Me moria tartrate - tab, l 22:00: Route: PO, [place] 00 Drug form: TAB, BID, Dosing Weight 97.273, kg, Start date: 08/29/20 17:00:00 CDT, Duration: 30 day, Stop date: 09/28/20 9:00:00 CDT Buspirone 2020-0 No Notes: Memori a 08-29 (Same As: l 22:00: BuSpar) Raltegravir 2020-0 No 400 mg, 1 M emoria 400 MG Oral 08-29 tab, l Tablet 22:00: Route: POSkylar nn [ISENTRESS] Drug form: TAB, BID, Dosing Weight 97.273, kg, Start date: 08/29/20 17:00:00 CDT, Duration: 30 day, Stop date: 09/28/20 9:00:00 CDT, 0 Lisinopril 2020-0 No 40 mg, 1 Mem oria - tab, l 22:00: Route: PO, [place] 00 Drug form: TAB, BID, Dosing Weight [...] oria 4-09 tab, l 22:00: Route: PO, [place] 00 Drug form: TAB, BID, Dosing Weight [...] tartrate 4-09 tab, l 22:00: Route: PO, [place] 00 Drug form: TAB, BID, Dosing Weight [...] 4- (Same As: l 22:00: BuSpar) Lisinopril No [...] Notes: Memoria 4-09 (Same l 17:07: as:MORPhin [place] 00 e Sulfate) Morphine No Notes: Memoria 4-09 (Same l 17:07: as:MORPhin Marty 00 e Sulfate) Morphine No Notes: Memoria 4-09 (Same l 17:07: as:MORPhin [place] 00 e Sulfate) Morphine No Notes: Memoria 4-09 (Same l 17:07: as:MORPhin [place] 00 e Sulfate) Morphine No Notes: Memoria 4-09 (Same l 17:07: as:MORPhin [place] 00 e Sulfate) Morphine 2020-0 No Notes: Memoria 4- (Same l 17:07: as:MORPhin [place] 00 e Sulfate) Morphine 2020-0 No Notes: Memoria 4- (Same l 17:07: as:MORPhin [place] 00 e Sulfate) buPROPion 1-0 No 150 [...] tab, PO, l oral 15:27: Daily, # [place] enteric 00 30 tab, 0 coated Refill(s), tablet Pharmacy: [facility] 149, 162.56, cm, 08/29/20 5:30:00 CDT, Height, 97.273, kg, 08/29/20 5:30:00 CDT, Weight pantoprazol 0 Yes 40 mg = 1 M emoria e 40 mg 4-09 tab, PO, l oral 15:27: Daily, # [place] enteric 00 30 tab, 0 coated Refill(s), tablet Pharmacy: [facility] 149, 162.56, cm, 08/29/20 5:30:00 CDT, Height, 97.273, kg, 08/29/20 5:30:00 CDT, Weight pantoprazol 2020-0 Yes 40 mg = 1 M emoria e 40 mg 4-09 tab, PO, l oral 15:27: Daily, # Marty enteric 00 30 tab, 0 coated Refill(s), tablet Pharmacy: [facility] 149, 162.56, cm, 08/29/20 5:30:00 CDT, Height, 97.273, kg, 08/29/20 5:30:00 CDT, Weight pantoprazol 2020-0 Yes 40 mg = 1 M emoria e 40 mg 4-09 tab, PO, l oral 15:27: Daily, # [place] enteric 00 30 tab, 0 coated Refill(s), tablet Pharmacy: [place] [id number], 162.56, cm, 08/29/20 5:30:00 CDT, Height, 97.273, kg, 08/29/20 5:30:00 CDT, Weight pantoprazol 2020-0 Yes 40 mg = 1 M emoria e 40 mg 4-09 tab, PO, l oral 15:27: Daily, # [place] enteric 00 30 tab, 0 coated Refill(s), tablet Pharmacy: [facility] 149, 162.56, cm, 08/29/20 5:30:00 CDT, Height, 97.273, kg, 08/29/20 5:30:00 CDT, Weight pantoprazol 2020-0 Yes 40 mg = 1 M emoria e 40 mg 4-09 tab, PO, l oral 15:27: Daily, # [place] enteric 00 30 tab, 0 coated Refill(s), tablet Pharmacy: [facility] 149, 162.56, cm, 08/29/20 5:30:00 CDT, Height, 97.273, kg, 08/29/20 5:30:00 CDT, Weight pantoprazol 2020-0 Yes 40 mg = 1 M emoria e 40 mg 4-09 tab, PO, l oral 15:27: Daily, # Marty enteric 00 30 tab, 0 coated Refill(s), tablet Pharmacy: [facility] [place], 162.56, cm, 08/29/20 5:30:00 [...] Skylar nn 00 tab, 0 Refill(s), Pharmacy: [facility], 162.56, cm, 08/29/20 5:30:00 CDT, Height, 97.273, kg, 08/29/20 5:30:00 CDT, Weight pantoprazol 2020-0 No 40 mg = 1 M emoria e 40 mg 4-09 tab, PO, l oral 15:26: Daily, # [place] enteric 00 30 tab, 0 coated Refill(s) tablet sucralfate 2020-0 Yes 1 gm = 1 Mem oria 1 g oral 4-09 tab, PO, l tablet 15:26: Q12H, # 28 Skylar nn 00 tab, 0 Refill(s), Pharmacy: [facility] 149, 162.56, cm, 08/29/20 5:30:00 [...] nn 00 tab, 0 Refill(s), Pharmacy: [facility] 149, 162.56, cm, 08/29/20 5:30:00 CDT, Height, 97.273, kg, 08/29/20 5:30:00 CDT, Weight pantoprazol 2020-0 No 40 mg = 1 M emoria e 40 mg 4-09 tab, PO, l oral 15:26: Daily, # [place] enteric 00 30 tab, 0 coated Refill(s) tablet sucralfate 2020-0 Yes 1 gm = 1 Mem oria 1 g oral 4-09 tab, PO, l tablet 15:26: Q12H, # 28 Skylar nn 00 tab, 0 Refill(s), Pharmacy: [facility] 149, 162.56, cm, 08/29/20 5:30:00 CDT, Height, 97.273, kg, 08/29/20 5:30:00 CDT, Weight pantoprazol 2020-0 No 40 mg = 1 M emoria e 40 mg 4-09 tab, PO, l oral 15:26: Daily, # [place] enteric 00 30 tab, 0 coated Refill(s) tablet sucralfate 2021-0 Yes 1 gm = 1 Mem oria 1 g oral 4-09 tab, PO, l tablet 15:26: Q12H, # 28 Skylar nn 00 tab, 0 Refill(s), Pharmacy: [facility] 149, 162.56, cm, 08/29/20 5:30:00 [...] nn 00 tab, 0 Refill(s), Pharmacy: [facility] 149, 162.56, cm, 08/29/20 5:30:00 [...] Skylar nn 00 tab, 0 Refill(s), Pharmacy: [place] [address], 162.56, cm, 08/29/20 5:30:00 CDT, Height, 97.273, kg, 08/29/20 5:30:00 CDT, Weight Saline No Notes: Memoria Flush 0.9% 4-09 (Same as: l 15:25: BD [place] 00 Posiflush) Lorazepam No Notes: Memori a 4-09 (Same as: l 15:25: Ativan) [place] 00 Saline No Notes: Memoria Flush 0.9% 4-09 (Same as: l 15:25: BD [place] 00 Posiflush) Lorazepam No Notes: Memori a 4-09 (Same as: l 15:25: Ativan) Saline No Notes: Memoria Flush 0.9% 4-09 (Same as: l 15:25: BD [place] 00 Posiflush) Saline No Notes: Memoria Flush 0.9% 4-09 (Same as: l 15:25: BD [place] 00 Posiflush) Lorazepam No Notes: Memori a [...] 0.9% 4-09 (Same as: l 15:25: BD [place] 00 Posiflush) Lorazepam No Notes: Memori a 4-09 (Same as: l 15:25: Ativan) Saline No Notes: Memoria Flush 0.9% 4-09 (Same as: l 15:25: BD [place] 00 Posiflush) Lorazepam No Notes: Memori a [...] Drug form: l mg + 15:00: INJ, [place] Dosing Weight 97.3, kg, Start date: 08/29/20 10:00:00 CDT, Stop date: 08/29/20 11:00:00 CDT Isuprel HCl 2020-0 No Route: IV, Memoria (ANES) 0.2 08-29 Drug form: l mg + 15:00: INJ, [place] 00 Dosing Weight 97.3, kg, Start date: 08/29/20 10:00:00 CDT, Stop date: 08/29/20 11:00:00 CDT Isuprel HCl 2020-0 No Route: IV, Memoria (ANES) 0.2 08-29 Drug form: l mg + 15:00: INJ, [place] 00 Dosing Weight 97.3, kg, Start date: 08/29/20 10:00:00 CDT, Stop date: 08/29/20 11:00:00 CDT Isuprel HCl 2020-0 No Route: IV, Memoria (ANES) 0.2 08-29 Drug form: l mg + 15:00: INJ, [place] 00 Dosing Weight 97.3, kg, Start date: 08/29/20 10:00:00 CDT, Stop date: 08/29/20 11:00:00 CDT Isuprel HCl 2020-0 No Route: IV, Memoria (ANES) 0.2 08-29 Drug form: l mg + 15:00: INJ, [place] 00 Dosing Weight 97.3, kg, Start date: [...] 08-29 Drug form: l 14:29: INJ, ONCE, [place] 00 Stop date: 08/29/20 9:29:00 CDT propofol [...] 08-29 Drug form: l 14:18: INJ, ONCE, [place] 00 Stop date: 08/29/20 9:18:00 CDT heparin 202-0 No Route: IV, Caesar lisa (ANES) 08-29 Drug form: l 14:18: INJ, ONCE, [place] 00 Stop date: 08/29/20 9:18:00 CDT heparin [...] Memori a 08-29 Route: l 14:01: IVP, [place] 00 Q5Min, Dosing Weight 97.273, kg, PRN [...] oria ne 08-29 Route: l 14:01: IVP, [place] 00 Q5Min, Dosing Weight 97.273, kg, PRN [...] Memori a 08-29 Route: l 14:01: IVP, [place] 00 Q2MIN, Dosing Weight 97.273, kg, PRN Narcotic Reversal, Start date: 08/29/20 9:01:00 CDT, Duration: 8 doses or times, Stop date: Limited # of times Ondansetron 1-0 No 4 mg, Memor ia 08-29 Route: l 14:01: IVP, ONCE, [place] 00 Dosing Weight 97.273, kg, PRN Nausea & Vomiting, Start date: 08/29/20 9:01:00 CDT Labetalol 1-0 No 10 mg, Memori a 08-29 Route: l 14:01: IVP, [place] 00 Q5Min, Dosing Weight 97.273, kg, PRN Elevated BP, Start date: 08/29/20 9:01:00 CDT, Duration: 5 doses or times, Stop date: Limited # of times Acetaminoph 2021-0 No 1,000 mg, M emoria en 08-29 Route: PO, l 14:01: Drug form: [place] 00 TAB, ONCE, Dosing Weight 97.273, kg, [...] oria ne 08-29 Route: l 14:01: IVP, [place] 00 Q5Min, Dosing Weight 97.273, kg, PRN [...] Memori a 08-29 Route: l 14:01: IVP, [place] 00 Q2MIN, Dosing Weight 97.273, kg, PRN [...] 08-29 Route: PO, l 14:01: Drug form: [place] 00 TAB, ONCE, Dosing Weight 97.273, kg, [...] lisa 08-29 Route: l 14:01: IVP, PRN, [place] 00 Dosing Weight 97.273, kg, PRN Benzodiaze [...] ia 08-29 Route: l 14:01: IVP, ONCE, [place] 00 Dosing Weight 97.273, kg, PRN Nausea & Vomiting, Start date: 08/29/20 9:01:00 CDT Labetalol 2021-0 No 10 mg, Memori a 08-29 Route: l 14:01: IVP, [place] 00 Q5Min, Dosing Weight 97.273, kg, PRN [...] Memori a 08-29 Route: l 14:01: IVP, [place] 00 Q5Min, Dosing Weight 97.273, kg, PRN [...] oria ne 08-29 Route: l 14:01: IVP, [place] 00 Q5Min, Dosing Weight 97.273, kg, PRN Pain Score 7-10, Start date: 08/29/20 9:01:00 CDT, Duration: 4 doses or times, Stop date: Limited # of times Flumazenil 1-0 No 0.2 mg, Caesar lisa 08-29 Route: l 14:01: IVP, PRN, [place] 00 Dosing Weight 97.273, kg, PRN Benzodiaze [...] lisa 08-29 Route: l 14:01: IVP, PRN, [place] 00 Dosing Weight 97.273, kg, PRN Benzodiaze [...] Memori a 08-29 Route: l 14:01: IVP, [place] 00 Q2MIN, Dosing Weight 97.273, kg, PRN Narcotic Reversal, Start date: 08/29/20 9:01:00 CDT, Duration: 8 doses or times, Stop date: Limited # of times Ondansetron 2021-0 No 4 mg, Memor ia 08-29 Route: l 14:01: IVP, ONCE, [place] Dosing Weight 97.273, kg, PRN Nausea & Vomiting, Start date: 08/29/20 9:01:00 CDT Labetalol 2021-0 No 10 mg, Memori a 08-29 Route: l 14:01: IVP, [place] 00 Q5Min, Dosing Weight 97.273, kg, PRN Elevated BP, Start date: 08/29/20 9:01:00 CDT, Duration: 5 doses or times, Stop date: Limited # of times Acetaminoph 2021-0 No 1,000 mg, M emoria en 08-29 Route: PO, l 14:01: Drug form: [place] 00 TAB, ONCE, Dosing Weight 97.273, kg, [...] oria ne 08-29 Route: l 14:01: IVP, [place] 00 Q5Min, Dosing Weight 97.273, kg, PRN Pain Score 7-10, Start date: 08/29/20 9:01:00 CDT, Duration: 4 doses or times, Stop date: Limited # of times Flumazenil 1-0 No 0.2 mg, Caesar lisa 08-29 Route: l 14:01: IVP, PRN, [place] 00 Dosing Weight 97.273, kg, PRN Benzodiaze pine Reversal, Initial dose, Start date: 08/29/20 9:01:00 CDT, Duration: 30 day, Stop date: 09/28/20 9:00:00 CDT Naloxone 1-0 No 0.4 mg, Memori a 08-29 Route: l 14:01: IVP, [place] 00 Q2MIN, Dosing Weight 97.273, kg, PRN [...] Memori a 08-29 Route: l 14:01: IVP, [place] 00 Q5Min, Dosing Weight 97.273, kg, PRN Elevated BP, Start date: 08/29/20 9:01:00 CDT, Duration: 5 doses or times, Stop date: Limited # of times Acetaminoph 1-0 No 1,000 mg, M emoria en 08-29 Route: PO, l 14:01: Drug form: [place] 00 TAB, ONCE, Dosing Weight 97.273, kg, [...] oria ne 08-29 Route: l 14:01: IVP, [place] 00 Q5Min, Dosing Weight 97.273, kg, PRN [...] Memori a 08-29 Route: l 14:01: IVP, [place] 00 Q2MIN, Dosing Weight 97.273, kg, PRN Narcotic Reversal, Start date: 08/29/20 9:01:00 CDT, Duration: 8 doses or times, Stop date: Limited # of times Ondansetron 2020-0 No 4 mg, Memor ia 08-29 Route: l 14:01: IVP, ONCE, [place] 00 Dosing Weight 97.273, kg, PRN Nausea [...] 08-29 Drug form: l 13:42: INJ, ONCE, [place] Stop date: 08/29/20 8:42:00 CDT fentaNYL 2020-0 No Route: IV, Mem oria (ANES) 08-29 Drug form: l 13:42: INJ, ONCE, Marty Stop date: 08/29/20 8:42:00 CDT fentaNYL 2020-0 No Route: IV, Mem oria (ANES) 08-29 Drug form: l 13:42: INJ, ONCE, Marty Stop date: 08/29/20 8:42:00 CDT norepinephr 2020-0 No Route: IV, Memoria ine (ANES) 08-29 Drug form: l 10 13:15: INJ, Start [place] microgram date: 08/29/20 8:15:00 CDT, Stop date: [...] Drug form: l 10 13:15: INJ, Start [place] microgram 00 date: 08/29/20 8:15:00 CDT, Stop date: 08/29/20 9:15:00 CDT norepinephr 2020-0 No Route: IV, Memoria ine (ANES) 08-29 Drug form: l 10 13:15: INJ, Start [place] microgram 00 date: 08/29/20 8:15:00 CDT, Stop date: 08/29/20 9:15:00 CDT norepinephr 2020-0 No Route: IV, Memoria ine (ANES) 4- Drug form: l 10 13:15: INJ, Start [place] microgram 00 date: 08/29/20 8:15:00 CDT, Stop [...] 4-09 Total l 0.9% IV 12:30: Volume: [place] (ANES) 1000 00 1,000, mL Start date: 08/29/20 7:30:00 CDT, Stop date: 08/29/20 8:30:00 CDT Sodium 2020-0 No Route: IV, Memor ia Chloride 4-09 Total l 0.9% IV 12:30: Volume: [place] (ANES) 1000 00 1,000, mL Start date: [...] PO, l Hydrochlori 11:42: Q24H, # 30 [place] de 150 MG 00 tab, 0 Extended Refill(s) Release Tablet 24 HR Yes 150 mg = 1 Memori a Bupropion 4-09 tab, PO, l Hydrochlori 11:42: Q24H, # 30 Marty de 150 MG 00 tab, 0 Extended Refill(s) Release Tablet 24 HR Yes 150 mg = 1 Memori a Bupropion 4-09 tab, PO, l Hydrochlori 11:42: Q24H, # 30 [place] de 150 MG 00 tab, 0 Extended [...] 4-09 Q12H, tab, l Tablet 11:41: 0 [place] [Eliquis] 00 Refill(s), For Atrial Fibrilatio n apixaban 0 Yes 5 mg, PO, Me moria MG Oral 4-09 Q12H, tab, l Tablet 11:41: 0 [place] [Eliquis] 00 Refill(s), For Atrial Fibrilatio n apixaban 0 Yes 5 mg, PO, Me moria MG Oral 08-29 Q12H, tab, l Tablet 11:41: 0 [place] [Eliquis] 00 Refill(s), For Atrial Fibrilatio n apixaban 5 2020-0 Yes 5 mg, PO, Me moria MG Oral 08-29 Q12H, tab, l Tablet 11:41: 0 [place] [Eliquis] 00 Refill(s), For Atrial Fibrilatio n apixaban 5 2020-0 Yes 5 mg, PO, Me moria MG Oral 08-29 Q12H, tab, l Tablet 11:41: 0 [place] [Eliquis] 00 Refill(s), For Atrial Fibrilatio n apixaban 5 2020-0 Yes 5 mg, PO, Me moria MG Oral 08-29 Q12H, tab, l Tablet 11:41: 0 [place] [Eliquis] 00 Refill(s), For Atrial Fibrilatio n apixaban 5 2020-0 Yes 5 mg, PO, Me moria MG Oral 08-29 Q12H, tab, l Tablet 11:41: 0 [place] [Eliquis] 00 Refill(s), For Atrial Fibrilatio n [...] tab, PO, l tablet 11:38: Daily, # [place] 00 90 tab, 3 Refill(s) AMIODarone 2020-0 Yes 200 mg = 1 M emoria 200 mg oral 4-09 tab, PO, l tablet 11:38: Daily, # [place] 00 90 tab, 3 Refill(s) AMIODarone 2020-0 Yes 200 mg = 1 M emoria 200 mg oral 4-09 tab, PO, l tablet 11:38: Daily, # [place] 00 90 tab, 3 Refill(s) AMIODarone Yes [...] tablet 00:00: [facility] daily. l AMANDOENTRESS 2017-0 Yes 400mg Q.5D Take 400 Met [...] Ordered Filled Immunization Date Status Comments [facility] e Immunization Name Name SARS-COV-2 COVID-19 [...] [place] 65[place] PFIZER COVID-19 2020-07-23 Completed [facility] VACC[facility] 00:00:00 [facility] PFIZER COVID-19 2020-07-23 Completed [facility] VACC[facility] 00:00:00 [facility] PFIZER COVID-19 2020-07-23 Completed [facility] VACC[facility] 00:00:00 [facility] PFIZER COVID-19 2020-07-23 Completed [facility] VACC[facility] 00:00:00 [facility] PFIZER COVID-19 2020-07-23 Completed [facility] VACC[facility] 00:00:00 [facility] PFIZER COVID-19 2020-07-23 Completed [facility] VACC[facility] 00:00:00 [facility] PFIZER COVID-19 2020-07-23 Completed [facility] VACCIN[facility] 00:00:00 [facility] PFIZER COVID-19 2020-07-23 Completed [facility] VACC[facility] 00:00:00 [facility] PFIZER COVID-19 2020-07-23 Completed [facility]00 [facility] PFIZER COVID-19 2020-07-23 Completed [facility] VACC[facility] 00:00:00 [facility] PFIZER COVID-19 2020-07-23 Completed [facility] VACCIN[facility] 00:00:00 [facility] PFIZER COVID-19 2020-07-23 Completed [facility] VACCIN[facility] 00:00:00 [facility] PFIZER COVID-19 2020-07-23 Completed [facility] VACCIN[facility] 00:00:00 [facility] PFIZER COVID-19 2020-07-23 Completed [facility] VACCIN[facility] 00:00:00 [facility] PFIZER COVID-19 2020-07-23 Completed [facility] VACCINATION 00:00:00 [facility] PFIZER COVID-19 2020-07-23 Completed [facility] VACCINATION 00:00:00 [facility] PFIZER COVID-19 2020-07-23 Completed [facility] VACCIN[facility] 00:00:00 [facility] PFIZER COVID-19 2020-07-23 Completed [facility] VACCINATION 00:00:00 [facility] PFIZER COVID-19 2020-07-23 Completed [facility] VACCIN[facility] 00:00:00 [facility] PFIZER COVID-19 2020-07-23 Completed [facility] VACCIN[facility] 00:00:00 [facility] PFIZER COVID-19 2020-07-23 Completed [facility] VACCIN[facility] 00:00:00 [facility] PFIZER COVID-19 2020-07-23 Completed [facility]ACC[facility] 00:00:00 [facility] PFIZER COVID-19 2020-07-23 Completed [facility]ACC[facility] 00:00:00 [facility] PFIZER COVID-19 2020-07-23 Completed [facility]ACC[facility] 00:00:00 [facility] PFIZER COVID-19 2020-07-23 Completed [facility]ACC[facility] 00:00:00 [facility] PFIZER COVID-19 2020-07-23 Completed [facility] VACC[facility] 00:00:00 [facility] PFIZER COVID-19 2020-07-23 Completed [facility]ACC[facility] 00:00:00 [facility] SARS-COV-2 COVID-19 2020-07-23 Completed [facility]ACCINE 00:00:00 [facility] SARS-COV-2 COVID-19 2020-07-23 Completed [facility] P[facility] VACCINE 00:00:00 [facility] SARS-COV-2 COVID-19 2020-07-23 Completed [facility] VACCINE 00:00:00 [facility] SARS-COV-2 COVID-19 2020-07-23 Completed [facility] VACCINE 00:00:00 [facility] SARS-COV-2 COVID-19 2020-07-23 Completed [facility] PFI[facility] VACCINE 00:00:00 [facility] SARS-COV-2 COVID-19 2020-07-23 Completed [facility] PFI[facility] VACCINE 00:00:00 [facility] SARS-COV-2 COVID-19 2020-07-23 Completed [facility] PFI[facility] VACCINE 00:00:00 [facility] SARS-COV-2 COVID-19 2020-07-23 Completed [facility] PFI[facility] VACCINE 00:00:00 [facility] SARS-COV-2 COVID-19 2020-07-23 Completed [facility] P[facility] VACCINE 00:00:00 [facility] SARS-COV-2 COVID-19 2020-07-23 Completed [facility] P[facility] VACCINE 00:00:00 [facility] SARS-COV-2 COVID-19 2020-07-23 Completed [facility] P[facility] VACCINE 00:00:00 [facility] SARS-COV-2 COVID-19 2020-07-23 Completed [facility] PFI[facility] VACCINE 00:00:00 [facility] SARS-COV-2 COVID-19 2020-07-23 Completed [facility] PFI[facility] VACCINE 00:00:00 [facility] PFIZER COVID-19 2020-07-23 Completed [facility] 00:00:00 [facility] PFIZER COVID-19 2020-07-02 Completed [facility] VACC[facility] 00:00:00 [facility] PFIZER COVID-19 2020-07-02 Completed [facility]ACC[facility] 00:00:00 [facility] PFIZER COVID-19 2020-07-02 Completed [facility] VACC[facility] 00:00:00 [facility] PFIZER COVID-19 2020-07-02 Completed [facility] 00:00:00 [facility] PFIZER COVID-19 2020-07-02 Completed [facility] 00:00:00 [facility] PFIZER COVID-19 2020-07-02 Completed [facility] 00:00:00 [facility] PFIZER COVID-19 2020-07-02 Completed [facility] 00:00:00 [facility] PFIZER COVID-19 2020-07-02 Com[facility] COVID-19 2020-07-02 Com[facility] COVID-19 2020-07-02 Com[facility] COVID-19 2020-07-02 Com[facility] PFIZ[facility] COVID-19 2020-07-02 Com[facility]00 [facility] PFIZ[facility] COVID-19 2020-07-02 Completed [facility] 00:00:00 [facility] PFIZER COVID-19 2020-07-02 Completed [facility] 00:00:00 [facility] PFIZER COVID-19 2020-07-02 Completed [facility] 00:00:00 [facility] PFIZER COVID-19 2020-07-02 Completed [facility] 00:00:00 [facility] PFIZER COVID-19 2020-07-02 Completed [facility] 00:00:00 [facility] PFIZER COVID-19 2020-07-02 Completed [facility] 00:00:00 [facility] PFIZER COVID-19 2020-07-02 Completed [facility] 00:00:00 [facility] PFIZER COVID-19 2020-07-02 Completed [facility] 00:00:00 [facility] PFIZER COVID-19 2020-07-02 Completed [facility] 00:00:00 [facility] PFIZER COVID-19 2020-07-02 Completed [facility] 00:00:00 [facility] PFIZER COVID-19 2020-07-02 Completed [facility] 00:00:00 [facility] PFIZER COVID-19 2020-07-02 Completed [facility] 00:00:00 [facility] PFIZER COVID-19 2020-07-02 Completed [facility] 00:00:00 [facility] PFIZER COVID-19 2020-07-02 Completed [facility] 00:00:00 [facility] PFIZER COVID-19 2020-07-02 Completed [facility] 00:00:00 [facility] SARS-COV-2 COVID-19 2020-07-02 Completed [facility] PFIZER VACCINE 00:00:00 [facility] SARS-COV-2 COVID-19 2020-07-02 Completed [facility] PFIZER VACCINE 00:00:00 [facility] SARS-COV-2 COVID-19 2020-07-02 Completed [facility] PFIZER VACCINE 00:00:00 [facility] SARS-COV-2 COVID-19 2020-07-02 Completed [facility] PFIZER VACCINE 00:00:00 [facility] SARS-COV-2 COVID-19 2020-07-02 Completed [facility] PFIZER VACCINE 00:00:00 [facility] SARS-COV-2 COVID-19 2020-07-02 Completed [facility] PFIZER VACCINE 00:00:00 [facility] SARS-COV-2 COVID-19 2020-07-02 Completed [facility] PFIZER VACCINE 00:00:00 [facility] SARS-COV-2 COVID-19 2020-07-02 Completed [facility] PFIZER VACCINE 00:00:00 [facility] SARS-COV-2 COVID-19 2020-07-02 Completed [facility] of PFIZER VACCINE 00:00:00 [facility] SARS-COV-2 COVID-19 2020-07-02 Completed [facility] PFIZER VACCINE 00:00:00 [facility] SARS-COV-2 COVID-19 2020-07-02 Completed [facility] PFIZER VACCINE 00:00:00 [facility] SARS-COV-2 COVID-19 2020-07-02 Completed [facility] PFIZER VACCINE 00:00:00 [facility] SARS-COV-2 COVID-19 2020-07-02 Completed [facility] PFIZER VACCINE 00:00:00 [facility] PFIZER COVID-19 2020-07-02 Completed [facility] 00:00:00 [facility] Influenza Virus 2017-03-08 Completed [facility] Vaccine 00:00:00 [facility] Influenza Virus 2017-03-08 Completed [facility] Vaccine 00:00:00 [facility] Influenza Virus 2017-03-08 Completed [facility] Vaccine 00:00:00 [facility] Influenza Virus 2017-03-08 Completed [facility] Vaccine 00:00:00 [facility] Influenza Virus 2017-03-08 Completed [facility] Vaccine 00:00:00 [facility] Influenza Virus 2017-03-08 Completed [facility] Vaccine 00:00:00 [facility] Influenza Virus 2017-03-08 Completed [facility] Vaccine 00:00:00 [facility] Influenza Virus 2017-03-08 Completed [facility] Vaccine 00:00:00 [facility] Influenza Virus 2017-03-08 Completed [facility] Vaccine 00:00:00 [facility] Influenza Virus 2017-03-08 Completed [facility] Vaccine 00:00:00 [facility] Influenza Virus 2017-03-08 Completed [facility] Vaccine 00:00:00 [facility] Influenza Virus 2017-03-08 Completed [facility] Vaccine 00:00:00 [facility] Influenza Virus 2017-03-08 Completed [facility] Vaccine 00:00:00 [facility] Influenza Virus 2017-03-08 Completed [facility] Vaccine 00:00:00 [facility] Influenza Virus 2017-03-08 Completed [facility] Vaccine 00:00:00 [facility] Influenza Virus 2017-03-08 Completed [facility] Vaccine 00:00:00 [facility] Influenza Virus 2017-03-08 Completed [facility] Vaccine 00:00:00 [facility] Influenza Virus 2014-01-30 Completed [facility] Vaccine (3+ yrs) 00:00:00 [facility] Pneumococcal 13 2014-01-30 Completed [facility] of Conjugate, PCV13 00:00:00 [facility] (Prevnar 13) Branch Influenza Virus 2014-01-30 Completed [facility] Vaccine (3+ yrs) 00:00:00 [facility] Pneumococcal 13 2014-01-30 Completed [facility] Conjugate, PCV13 00:00:00 [facility] (Prevnar 13) Branch Influenza Virus 2014-01-30 Completed [facility] Vaccine (3+ yrs) 00:00:00 [facility] Pneumococcal 13 2014-01-30 Completed [facility] of Conjugate, PCV13 00:00:00 [facility] (Prevnar 13) Branch Influenza Virus 2014-01-30 Completed [facility] Vaccine (3+ yrs) 00:00:00 [facility] Pneumococcal 13 2014-01-30 Completed [facility] Conjugate, PCV13 00:00:00 [facility] (Prevnar 13) Branch Influenza Virus 2014-01-30 Completed [facility] Vaccine (3+ yrs) 00:00:00 [facility] Pneumococcal 13 2014-01-30 Completed [facility] Conjugate, PCV13 00:00:00 [facility] (Prevnar 13) [facility] Influenza Virus 2014-01-30 Completed [facility] Vaccine (3+ yrs) 00:00:00 [facility] Pneumococcal 13 2014-01-30 Completed [facility] Conjugate, PCV13 00:00:00 [facility] (Prevnar 13) [facility] Influenza Virus 2014-01-30 Completed [facility] Vaccine (3+ yrs) 00:00:00 [facility] Pneumococcal 13 2014-01-30 Completed [facility] Conjugate, PCV13 00:00:00 [facility] (Prevnar 13) [facility] Influenza Virus 2014-01-30 Completed [facility] Vaccine (3+ yrs) 00:00:00 [facility] Pneumococcal 13 2014-01-30 Completed [facility] Conjugate, PCV13 00:00[facility]00 [facility] Influenza Virus 2014-01-30 Completed [facility] Vaccine (3+ yrs) 00:00:00 [facility] Pneumococcal 13 2014-01-30 Completed [facility] Conjugate, PCV13 00:00:00 [facility] (Prevnar 13) [facility] Influenza Virus 2014-01-30 Completed [facility] Vaccine (3+ yrs) 00:00:00 [facility] Pneumococcal 13 2014-01-30 Completed [facility] Conjugate, PCV13 00:00:00 [facility] (Prevnar 13) [facility] Influenza Virus 2014-01-30 Completed [facility] Vaccine (3+ yrs) 00:00:00 [facility] Pneumococcal 13 2014-01-30 Completed [facility] Conjugate, PCV13 00:00:00 [facility] (Prevnar 13) [facility] Influenza Virus 2014-01-30 Completed [facility] Vaccine (3+ yrs) 00:00:00 [facility] Pneumococcal 13 2014-01-30 Completed [facility] Conjugate, PCV13 00:00:00 [facility] (Prevnar 13) [facility] Influenza Virus 2014-01-30 Completed [facility] Vaccine (3+ yrs) 00:00:00 [facility] Pneumococcal 13 2014-01-30 Completed [facility] Conjugate, PCV13 00:00:00 [facility] (Prevnar 13) [facility] Influenza Virus 2014-01-30 Completed [facility] Vaccine (3+ yrs) 00:00:00 [facility] Pneumococcal 13 2014-01-30 Completed [facility] Conjugate, PCV13 00:00:00 [facility] (Prevnar 13) [facility] Influenza Virus 2014-01-30 Completed [facility] Vaccine (3+ yrs) 00:00:00 [facility] Pneumococcal 13 2014-01-30 Completed [facility] Conjugate, PCV13 00:00:00 [facility] (Prevnar 13) [facility] Influenza Virus 2014-01-30 Completed [facility] Vaccine (3+ yrs) 00:00:00 [facility] Pneumococcal 13 2014-01-30 Completed [facility] Conjugate, PCV13 00:00:00 [facility] (Prevnar 13) [facility] Influenza Virus 2014-01-30 Completed [facility] Vaccine (3+ yrs) 00:00:00 [facility] Pneumococcal 13 2014-01-30 Completed [facility] Conjugate, PCV13 00:00:00 [facility] (Prevnar 13) [facility] Pneumococcal 2012-02-16 Completed [facility] Polysaccharide, 00:00:00 [facility] PPSV23 (PNEUMOVAX) Branch Influenza Virus 2012-02-16 Completed [facility] Vaccine 00:00:00 [facility] PPD (TB) 2012-02-16 Completed [facility] 00:00:00 [facility] Pneumococcal 2012-02-16 Completed [facility] Polysaccharide, 00:00:00 [facility] PPSV23 (PNEUMOVAX) [facility] Influenza Virus 2012-02-16 Completed [facility] Vaccine 00:00:00 [facility] PPD (TB) 2012-02-16 Completed [facility] 00:00:00 [facility] Pneumococcal 2012-02-16 Completed [facility] Polysaccharide, 00:00:00 [facility] PPSV23 (PNEUMOVAX) [facility] Influenza Virus 2012-02-16 Completed [facility] Vaccine 00:00:00 [facility] PPD (TB) 2012-02-16 Completed [facility] 00:00:00 [facility] Pneumococcal 2012-02-16 Completed [facility] f Polysaccharide, 00:00:00 [facility] PPSV23 (PNEUMOVAX) [facility] Influenza Virus 2012-02-16 Completed [facility] Vaccine 00:00:00 [facility] PPD (TB) 2012-02-16 Completed [facility] 00:00:00 [facility] Pneumococcal 2012-02-16 Completed [facility] Polysaccharide, 00:00:00 [facility] PPSV23 (PNEUMOVAX) Branch Influenza Virus 2012-02-16 Completed [facility] Vaccine 00:00:00 [facility] PPD (TB) 2012-02-16 Completed [facility] 00:00:00 [facility] Pneumococcal 2012-02-16 Completed [facility] Polysaccharide, 00:00:00 [facility] PPSV23 (PNEUMOVAX) Branch Influenza Virus 2012-02-16 Completed [facility] Vaccine 00:00:00 [facility] PPD (TB) 2012-02-16 Completed [facility] 00:00:00 [facility] Pneumococcal 2012-02-16 Completed [facility] Polysaccharide, 00:00:00 [facility] PPSV23 (PNEUMOVAX) Branch Influenza Virus 2012-02-16 Completed [facility] Vaccine 00:00:00 [facility] PPD (TB) 2012-02-16 Completed [facility] 00:00:00 [facility] Pneumococcal 2012-02-16 Completed [facility] Polysaccharide, 00:00:00 [facility] PPSV23 (PNEUMOVAX) [facility] Influenza Virus 2012-02-16 Completed [facility] Vaccine 00:00:00 [facility] PPD (TB) 2012-02-16 Completed [facility] 00:00:00 [facility] Pneumococcal 2012-02-16 Completed [facility] Polysaccharide, 00:00:00 [facility] PPSV23 (PNEUMOVAX) Branch Influenza Virus 2012-02-16 Completed [facility] Vaccine 00:00:00 [facility] PPD (TB) 2012-02-16 Completed [facility] 00:00:00 [facility] Pneumococcal 2012-02-16 Completed [facility] Polysaccharide, 00:00:00 [facility] PPSV23 (PNEUMOVAX) Branch Influenza Virus 2012-02-16 Completed [facility] Vaccine 00:00:00 [facility] PPD (TB) 2012-02-16 Completed [facility] 00:00:00 [facility] Pneumococcal 2012-02-16 Completed [facility] Polysaccharide, 00:00:00 [facility] PPSV23 (PNEUMOVAX) Branch Influenza Virus 2012-02-16 Completed [facility] Vaccine 00:00:00 [facility] PPD (TB) 2012-02-16 Completed [facility] 00:00:00 [facility] Pneumococcal 2012-02-16 Completed [facility] Polysaccharide, 00:00:00 [facility] PPSV23 (PNEUMOVAX) Branch Influenza Virus 2012-02-16 Completed [facility] Vaccine 00:00:00 [facility] PPD (TB) 2012-02-16 Completed [facility] 00:00:00 [facility] Pneumococcal 2012-02-16 Completed [facility] Polysaccharide, 00:00:00 [facility] PPSV23 (PNEUMOVAX) Branch Influenza Virus 2012-02-16 Completed [facility] Vaccine 00:00:00 [facility] PPD (TB) 2012-02-16 Completed [facility] 00:00:00 [facility] Pneumococcal 2012-02-16 Completed [facility] Polysaccharide, 00:00:00 [facility] PPSV23 (PNEUMOVAX) Branch Influenza Virus 2012-02-16 Completed [facility] Vaccine 00:00:00 [facility] PPD (TB) 2012-02-16 Completed [facility] 00:00:00 [facility] Pneumococcal 2012-02-16 Completed [facility] f Polysaccharide, 00:00:00 [facility] PPSV23 (PNEUMOVAX) Branch Influenza Virus 2012-02-16 Completed [facility] Vaccine 00:00:00 [facility] PPD (TB) 2012-02-16 Completed [facility] 00:00:00 [facility] Pneumococcal 2012-02-16 Completed [facility] Polysaccharide, 00:00:00 [facility] PPSV23 (PNEUMOVAX) Branch Influenza Virus 2012-02-16 Completed [facility] Vaccine 00:00:00 [facility] PPD (TB) 2012-02-16 Completed [facility] 00:00:00 [facility] Pneumococcal 2012-02-16 Completed [facility] Polysaccharide, 00:00:00 [facility] PPSV23 (PNEUMOVAX) Branch Influenza Virus 2012-02-16 Completed [facility] Vaccine 00:00:00 [facility] PPD (TB) 2012-02-16 Completed [facility] 00:00:00 [facility] Hep B, Adol or Pedi 2011-09-01 Completed [facility] Dosage 00:00:00 [facility] Hep B, Adol or Pedi 2011-09-01 Completed [facility] Dosage 00:00:00 [facility] Hep B, Adol or Pedi 2011-09-01 Completed [...] 2011-03-17 Completed [facility] Dosage 00:00:00 [facility] Hep B, Adol or Pedi 2011-03-17 Completed [facility] Dosage 00:00:00 [facility] Hep B, Adol or Pedi 2011-03-17 Completed [facility] Dosage 00:00:00 [facility] Hep B, Adol or Pedi 2011-03-17 Completed [facility] Dosage 00:00:00 [facility] Hep B, Adol or Pedi 2011-03-17 Completed [facility] Dosage 00:00:00 [facility] Hep B, Adol or Pedi 2011-03-17 Completed [facility] Dosage 00:00:00 [facility] Hep B, Adol or Pedi 2011-03-17 Completed [facility] Dosage 00:00:00 [facility] Hep B, Adol or Pedi 2011-03-17 Completed [facility] Dosage 00:00:00 [facility] Hep B, Adol or Pedi 2011-03-17 Completed [facility] Dosage 00:00:00 [facility] Hep B, Adol or Pedi 2011-03-17 Completed [facility] Dosage 00:00:00 [facility] Hep B, Adol or Pedi 2011-03-17 Completed [facility] Dosage 00:00:00 [facility] Hep B, Adol or Pedi 2011-03-17 Completed [facility] Dosage 00:00:00 [facility] Hep B, Adol or Pedi 2011-03-17 Completed [facility] Dosage 00:00:00 [facility] Hep B, Adol or Pedi 2011-03-17 Completed [facility] Dosage 00:00:00 [facility] Influenza Virus 2011-02-10 Completed [facility] Vaccine 00:00:00 [facility] Hep B, Adol or Pedi 2011-02-10 Completed [facility] Dosage 00:00:00 [facility] Influenza Virus 2011-02-10 Completed [facility] Vaccine 00:00:00 [facility] Hep B, Adol or Pedi 2011-02-10 Completed [facility] Dosage 00:00:00 [facility] Influenza Virus 2011-02-10 Completed [facility] Vaccine 00:00:00 [facility] Hep B, Adol or Pedi 2011-02-10 Completed [facility] Dosage 00:00:00 [facility] Influenza Virus 2011-02-10 Completed [facility] Vaccine 00:00:00 [facility] Hep B, Adol or Pedi 2011-02-10 Completed [facility] Dosage 00:00:00 [facility] Influenza Virus 2011-02-10 Completed [facility] Vaccine 00:00:00 [facility] Hep B, Adol or Pedi 2011-02-10 Completed [facility] Dosage 00:00:00 [facility] Influenza Virus 2011-02-10 Completed [facility] Vaccine 00:00:00 [facility] Hep B, Adol or Pedi 2011-02-10 Completed [facility] Dosage 00:00:00 [facility] Influenza Virus 2011-02-10 Completed [facility] Vaccine 00:00:00 [facility] Hep B, Adol or Pedi 2011-02-10 Completed [facility] Dosage 00:00:00 [facility] Influenza Virus 2011-02-10 Completed [facility] Vaccine 00:00:00 [facility] Hep B, Adol or Pedi 2011-02-10 Completed [facility] Dosage 00:00:00 [facility] Influenza Virus 2011-02-10 Completed [facility] Vaccine 00:00:00 [facility] Hep B, Adol or Pedi 2011-02-10 Completed [facility] Dosage 00:00:00 [facility] Influenza Virus 2011-02-10 Completed [facility] Vaccine 00:00:00 [facility] Hep B, Adol or Pedi 2011-02-10 Completed [facility] Dosage 00:00:00 [facility] Influenza Virus 2011-02-10 Completed [facility] Vaccine 00:00:00 [facility] Hep B, Adol or Pedi 2011-02-10 Completed [facility] Dosage 00:00:00 [facility] Influenza Virus 2011-02-10 Completed [facility] Vaccine 00:00:00 [facility] Hep B, Adol or Pedi 2011-02-10 Completed [facility] Dosage 00:00:00 [facility] Influenza Virus 2011-02-10 Completed [facility] Vaccine 00:00:00 [facility] Hep B, Adol or Pedi 2011-02-10 Completed [facility] Dosage 00:00:00 [facility] Influenza Virus 2011-02-10 Completed [facility] Vaccine 00:00:00 [facility] Hep B, Adol or Pedi 2011-02-10 Completed [facility] Dosage 00:00:00 [facility] Influenza Virus 2011-02-10 Completed [facility] Vaccine 00:00:00 [facility] Hep B, Adol or Pedi 2011-02-10 Completed [facility] Dosage 00:00:00 [facility] Influenza Virus 2011-02-10 Completed [facility] Vaccine 00:00:00 [facility] Hep B, Adol or Pedi 2011-02-10 Completed [facility] Dosage 00:00:00 [facility] Influenza Virus 2011-02-10 Completed [facility] Vaccine 00:00:00 [facility] Hep B, Adol or Pedi 2011-02-10 Completed [facility] Dosage 00:00:00 [facility] PPD (TB) 2010-11-18 Completed [facility] 00:00:00 [facility] TDAP (ADACEL) 2010-11-18 Completed [facility] of VACCINE 00:00:00 [facility] PPD (TB) 2010-11-18 Completed [facility] 00:00:00 [facility] TDAP (ADACEL) 2010-11-18 Completed [facility] of VACCINE 00:00:00 [facility] PPD (TB) 2010-11-18 Completed [facility] 00:00:00 [facility] TDAP (ADACEL) 2010-11-18 Completed [facility] of VACCINE 00:00:00 [facility] PPD (TB) 2010-11-18 Completed [facility] 00:00:00 [facility] TDAP (ADACEL) 2010-11-18 Completed [facility] of VACCINE 00:00:00 [facility] PPD (TB) 2010-11-18 Completed [facility] of 00:00:00 [facility] TDAP (ADACEL) 2010-11-18 Completed [facility] of VACCINE 00:00:00 [facility] PPD (TB) 2010-11-18 Completed [facility] 00:00:00 [facility] TDAP (ADACEL) 2010-11-18 Completed [facility] of VACCINE 00:00:00 [facility] PPD (TB) 2010-11-18 Completed [facility] 00:00:00 [facility] TDAP (ADACEL) 2010-11-18 Completed [facility] of VACCINE 00:00:00 [facility] PPD (TB) 2010-11-18 Completed [facility] 00:00:00 [facility] TDAP (ADACEL) 2010-11-18 Completed [facility] of VACCINE 00:00:00 [facility] PPD (TB) 2010-11-18 Completed [facility] 00:00:00 [facility] TDAP (ADACEL) 2010-11-18 Completed [facility] of VACCINE 00:00:00 [facility] PPD (TB) 2010-11-18 Completed [facility] 00:00:00 [facility] TDAP (ADACEL) 2010-11-18 Completed [facility] of VACCINE 00:00:00 [facility] PPD (TB) 2010-11-18 Completed [facility] 00:00:00 [facility] TDAP (ADACEL) 2010-11-18 Completed [facility] of VACCINE 00:00:00 [facility] PPD (TB) 2010-11-18 Completed [facility] of 00:00:00 [facility] TDAP (ADACEL) 2010-11-18 Completed [facility] of VACCINE 00:00:00 [facility] PPD (TB) 2010-11-18 Completed [facility] of 00:00:00 [facility] TDAP (ADACEL) 2010-11-18 Completed [facility] of VACCINE 00:00:00 [facility] PPD (TB) 2010-11-18 Completed [facility] of 00:00:00 [facility] TDAP (ADACEL) 2010-11-18 Completed [facility] of VACCINE 00:00:00 [facility] PPD (TB) 2010-11-18 Completed [facility] 00:00:00 [facility] TDAP (ADACEL) 2010-11-18 Completed [facility] of VACCINE 00:00:00 [facility] PPD (TB) 2010-11-18 Completed [facility] 00:00:00 [facility] TDAP (ADACEL) 2010-11-18 Completed [facility] of VACCINE 00:00:00 [facility] PPD (TB) 2010-11-18 Completed [facility] 00:00:00 [facility] TDAP (ADACEL) 2010-11-18 Completed [facility] of VACCINE 00:00:00 [facility] HEPATITIS A 2004-03-02 Completed [facility] of 00:00:00 [facility] HEPATITIS A 2004-03-02 Completed [facility] 00:00:00 [facility] HEPATITIS A 2004-03-02 Completed [facility] of 00:00:00 [facility] HEPATITIS A 2004-03-02 Completed [facility] 00:00:00 [facility] HEPATITIS A 2004-03-02 Completed [facility] 00:00:00 [facility] HEPATITIS A 2004-03-02 Completed [facility] 00:00:00 [facility] HEPATITIS A 2004-03-02 Completed [facility] 00:00:00 [facility] HEPATITIS A 2004-03-02 Completed [facility] 00:00:00 [facility] HEPATITIS A 2004-03-02 Completed [facility] 00:00:00 [facility] HEPATITIS A 2004-03-02 Completed [facility] 00:00:00 [facility] HEPATITIS A 2004-03-02 Completed [facility] 00:00:00 [facility] HEPATITIS A 2004-03-02 Completed [facility] 00:00:00 [facility] HEPATITIS A 2004-03-02 Completed [facility] 00:00:00 [facility] HEPATITIS A 2004-03-02 Completed [facility] 00:00:00 [facility] HEPATITIS A 2004-03-02 Completed [facility] 00:00:00 [facility] HEPATITIS A 2004-03-02 Completed [facility] 00:00:00 [facility] HEPATITIS A 2004-03-02 Completed [facility] 00:00:00 [facility] HEPATITIS A 2003-08-01 Completed [facility] 00:00:00 [facility] HEPATITIS A 2003-08-01 Completed [facility] 00:00:00 [facility] HEPATITIS A 2003-08-01 Completed [facility] 00:00:00 [facility] HEPATITIS A 2003-08-01 Completed [facility] 00:00:00 [facility] HEPATITIS A 2003-08-01 Completed [facility] 00:00:00 [facility] HEPATITIS A 2003-08-01 Completed [facility] 00:00:00 [facility] HEPATITIS A 2003-08-01 Completed [facility] 00:00:00 [facility] HEPATITIS A 2003-08-01 Completed [facility] 00:00:00 [facility] HEPATITIS A 2003-08-01 Completed [facility] 00:00:00 [facility] HEPATITIS A 2003-08-01 Completed [facility] 00:00:00 [facility] HEPATITIS A 2003-08-01 Completed [facility] 00:00:00 [facility] HEPATITIS A 2003-08-01 Completed [facility] 00:00:00 [facility] HEPATITIS A 2003-08-01 Completed [facility] 00:00:00 [facility] HEPATITIS A 2003-08-01 Completed [facility] 00:00:00 [facility] HEPATITIS A 2003-08-01 Completed [facility] of 00:00:00 [facility] HEPATITIS A 2003-08-01 Completed [facility] 00:00:00 [facility] HEPATITIS A 2003-08-01 Completed [facility] of 00:00:00 [facility] Pneumococcal 2001-10-04 Completed University o f Polysaccharide, 00:00:00 [facility] PPSV23 (PNEUMOVAX) [facility] PPD (TB) 2001-10-04 Completed [facility] 00:00:00 [facility] Pneumococcal 2001-10-04 Completed University o f Polysaccharide, 00:00:00 [facility] PPSV23 (PNEUMOVAX) [facility] PPD (TB) 2001-10-04 Completed [facility] 00:00:00 [facility] Pneumococcal 2001-10-04 Completed University o f Polysaccharide, 00:00:00 [facility] PPSV23 (PNEUMOVAX) [facility] PPD (TB) 2001-10-04 Completed [facility] 00:00:00 [facility] Pneumococcal 2001-10-04 Completed University o f Polysaccharide, 00:00:00 [facility] PPSV23 (PNEUMOVAX) [facility] PPD (TB) 2001-10-04 Completed [facility] 00:00:00 [facility] Pneumococcal 2001-10-04 Completed University o f Polysaccharide, 00:00:00 [facility] PPSV23 (PNEUMOVAX) [facility] PPD (TB) 2001-10-04 Completed [facility] 00:00:00 [facility] Pneumococcal 2001-10-04 Completed University o f Polysaccharide, 00:00:00 [facility] PPSV23 (PNEUMOVAX) [facility] PPD (TB) 2001-10-04 Completed [facility] 00:00:00 [facility] Pneumococcal 2001-10-04 Completed University o f Polysaccharide, 00:00:00 [facility] PPSV23 (PNEUMOVAX) [facility] PPD (TB) 2001-10-04 Completed [facility] 00:00:00 [facility] Pneumococcal 2001-10-04 Completed University o f Polysaccharide, 00:00:00 [facility] PPSV23 (PNEUMOVAX) [facility] PPD (TB) 2001-10-04 Completed [facility] 00:00:00 [facility] Pneumococcal 2001-10-04 Completed University o f Polysaccharide, 00:00:00 [facility] PPSV23 (PNEUMOVAX) Branch PPD (TB) 2001-10-04 Completed [facility] 00:00:00 [facility] Pneumococcal 2001-10-04 Completed University o f Polysaccharide, 00:00:00 [facility] PPSV23 (PNEUMOVAX) Branch PPD (TB) 2001-10-04 Completed [facility] 00:00:00 [facility] Pneumococcal 2001-10-04 Completed University o f Polysaccharide, 00:00:00 [facility] PPSV23 (PNEUMOVAX) Branch PPD (TB) 2001-10-04 Completed [facility] 00:00:00 [facility] Pneumococcal 2001-10-04 Completed University o f Polysaccharide, 00:00:00 [facility] PPSV23 (PNEUMOVAX) Branch PPD (TB) 2001-10-04 Completed [facility] 00:00:00 [facility] Pneumococcal 2001-10-04 Completed University o f Polysaccharide, 00:00:00 [facility] PPSV23 (PNEUMOVAX) [facility] PPD (TB) 2001-10-04 Completed [facility] 00:00:00 [facility] Pneumococcal 2001-10-04 Completed University o f Polysaccharide, 00:00:00 [facility] PPSV23 (PNEUMOVAX) Branch PPD (TB) 2001-10-04 Completed [facility] 00:00:00 [facility] Pneumococcal 2001-10-04 Completed University o f Polysaccharide, 00:00:00 [facility] PPSV23 (PNEUMOVAX) Branch PPD (TB) 2001-10-04 Completed [facility] 00:00:00 [facility] Pneumococcal 2001-10-04 Completed University o f Polysaccharide, 00:00:00 [facility] PPSV23 (PNEUMOVAX) Branch PPD (TB) 2001-10-04 Completed [facility] of 00:00:00 [facility] Pneumococcal 2001-10-04 Completed University o f Polysaccharide, 00:00:00 [facility] PPSV23 (PNEUMOVAX) Branch PPD (TB) 2001-10-04 Completed [facility] 00:00:00 [facility] Vital Signs Vital Name Observation Time Observation Value Comments Source Systolic blood 2022-05-10 22:00:00 159 mm[Hg] Univer sity of pressure [facility] Diastolic blood 2022-05-10 22:00:00 87 mm[Hg] Unive rsity of pressure [facility] Heart rate 2022-05-10 22:00:00 56 /min [facility] Body temperature 2022-05-10 22:00:00 36.61 Amina Univ ersity [facility] Respiratory rate 2022-05-10 22:00:00 17 /min Univ ers[facility] Oxygen saturation in 2022-05-10 22:00:00 98 /min University of Arterial blood by [place] [facility] Pulse oximetry Branch Body weight 2022-05-10 16:29:00 78.926 kg [facility] BMI 2022-05-10 16:29:00 29.87 kg/m2 [facility] Systolic blood 2022-05-08 22:30:00 168 mm[Hg] Univer sity of pressure [facility] Diastolic blood 2022-05-08 22:30:00 85 mm[Hg] Unive rsity of pressure [facility] Heart rate 2022-05-08 22:30:00 68 /min [facility] Oxygen saturation in 2022-05-08 22:30:00 100 /min University of Arterial blood by [facility] Pulse oximetry Branch Body temperature 2022-05-08 22:22:00 35.89 Amina [facility] ers[facility] Respiratory rate 2022-05-08 22:22:00 14 /min Univ ers[facility] Body weight 2022-05-08 22:22:00 78.926 kg [facility] BMI 2022-05-08 22:22:00 29.87 kg/m2 [facility] Systolic blood 2022-05-07 00:00:00 149 mm[Hg] Univer sity of pressure [facility] Diastolic blood 2022-05-07 00:00:00 132 mm[Hg] Unive rsity of pressure [facility] Heart rate 2022-05-07 00:00:00 59 /min [facility] Respiratory rate 2022-05-07 00:00:00 14 /min [facility] Oxygen saturation in 2022-05-07 00:00:00 99 /min [facility] Arterial blood by [place] [facility] Pulse oximetry Branch Body temperature 2022-05-06 20:12:00 36.5 Amina [facility] Body height 2022-05-06 20:12:00 162.6 cm [facility] Body weight 2022-05-06 20:12:00 78.926 kg [facility] BMI 2022-05-06 20:12:00 29.87 kg/m2 [facility] Systolic blood 2022-04-22 19:50:00 156 mm[Hg] Univer sity of pressure [facility] Diastolic blood 2022-04-22 19:50:00 89 mm[Hg] Unive rsity of pressure [facility] Heart rate 2022-04-22 19:50:00 69 /min [facility] Body temperature 2022-04-22 19:50:00 36.67 Amina [facility] Respiratory rate 2022-04-22 19:50:00 17 /min [facility] Body height 2022-04-22 19:50:00 162.6 cm [facility] Body weight 2022-04-22 19:50:00 80.74 kg [facility] BMI 2022-04-22 19:50:00 30.55 kg/m2 [facility] Oxygen saturation in 2022-04-22 19:50:00 96 /min University of Arterial blood by [facility] Pulse oximetry Branch Systolic blood 2022-03-05 15:23:00 167 mm[Hg] Univer sity of [facility] Diastolic blood 2022-03-05 15:23:00 105 mm[Hg] Unive rsity of [facility] Heart rate 2022-03-05 15:23:00 49 /min [facility] Body temperature 2022-03-05 15:18:00 36.67 Amina Univ ersity of [facility] Respiratory rate 2022-03-05 15:18:00 18 /min Univ ersity of [facility] Body height 2022-03-05 15:18:00 162.6 cm [facility] Body weight 2022-03-05 15:18:00 74.707 kg [facility] BMI 2022-03-05 15:18:00 28.27 kg/m2 [facility] Systolic blood 2022-02-16 21:41:00 169 mm[Hg] Univer sity of pressure [facility] Diastolic blood 2022-02-16 21:41:00 86 mm[Hg] Unive rsity of pressure [facility] Heart rate 2022-02-16 21:41:00 51 /min [facility]i ty of [facility] Body temperature 2022-02-16 21:41:00 36.56 Amina [facility] Respiratory rate 2022-02-16 21:41:00 17 /min [facility] O[facility] saturation in 2022-02-16 21:41:00 98 /min [facility] Arterial blood by [facility] Pulse oximetry Branch Body height 2022-02-11 16:02:00 162.6 cm Universi ty of [facility] Body weight 2022-02-11 16:02:00 79.379 kg [facility]i ty [facility] BMI 2022-02-11 16:02:00 30.04 kg/m2 Universi ty [facility] Systolic blood 2021-11-20 13:47:00 165 mm[Hg] Univer sity of pressure [facility] Diastolic blood 2021-11-20 13:47:00 83 mm[Hg] Unive rsity of pressure [facility] Heart rate 2021-11-20 13:47:00 58 /min [facility]i ty [facility] Body temperature 2021-11-20 13:42:00 36.39 Amina [facility] Respiratory rate 2021-11-20 13:42:00 16 /min [facility] Body height 2021-11-20 13:42:00 162.6 cm [facility] Body weight 2021-11-20 13:42:00 84.369 kg [facility] BMI 2021-11-20 13:42:00 31.93 kg/m2 [facility] Systolic blood 2021-07-14 15:18:00 142 mm[facility]Hg] [facility] Diastolic blood 2021-07-14 15:18:00 76 mm[Hg] [facility] Heart rate 2021-07-14 15:18:00 61 [facility] Body height 2021-07-14 15:18:00 [facility]6 [facility] Body weight 2021-07-14 15:18:00 94.802 [facility] BMI 2021-07-14 15:18:00 35.87 kg/m2 [facility] Systolic blood 2022-03-05 15:23:00 167 mm[Hg] Univer sity of [facility] Diastolic blood 2022-03-05 15:23:00 105 mm[Hg] Unive rsity [facility] Heart rate 2022-03-05 15:23:00 49 /min [facility] Body temperature 2022-03-05 15:18:00 36.67 Amina [facility] Respiratory rate 2022-03-05 15:18:00 18 /min [facility] Body height 2022-03-05 15:18:00 162.6 cm [facility] Body weight 2022-03-05 15:18:00 74.707 kg [facility] BMI 2022-03-05 15:18:00 28.27 kg/m2 [facility] Oxygen saturation in 2022-02-16 21:41:00 98 /min [facility] Arterial blood by [facility] Pulse oximetry [place] Systolic blood 2020-12-08 15:48:00 125 mm[Hg] Method [facility] pressure Diastolic blood 2020-12-08 15:48:00 76 mm[Hg] [facility] pressure Heart rate 2020-12-08 15:48:00 64 /min [facility] Body temperature 2020-12-08 15:48:00 36.61 Amina [facility] Respiratory rate 2020-12-08 15:48:00 17 /min [facility] Body height 2020-12-08 15:48:00 162.6 cm [facility] Body weight 2020-12-08 15:48:00 98.884 kg [facility] BMI 2020-12-08 15:48:00 37.42 kg/m2 [facility] Oxygen saturation in 2020-12-08 15:48:00 97 /min [facility] Arterial blood by Pulse oximetry Respitory Rate 2020-08-30 13:00:00 D[place] Hammond Systolic (mm Hg) 2020-08-30 13:00:00 Caesar rial Marty Diastolic (mm Hg) 2020-08-30 13:00:00 Mem orial Marty Systolic (mm Hg) 2020-08-30 11:00:00 Caesar rial Marty Diastolic (mm Hg) 2020-08-30 11:00:00 Mem orial Marty Temperature Oral (F) 2020-08-30 11:00:00 98.4 F [facility] Respitory Rate 2020-08-30 11:00:00 [facility] Respitory Rate 2020-08-30 10:00:00 Memori al [facility] Systolic (mm Hg) 2020-08-30 10:00:00 Caesar rial [facility] Diastolic (mm Hg) 2020-08-30 10:00:00 Mem orial Marty Temperature Oral (F) 2020-08-30 00:00:00 96.9 F [facility] Temperature Oral (F) 2020-08-29 11:26:00 [facility]6 [facility] Height 2020-08-29 10:30:00 162.56 cm [facility] Weight 2020-08-29 10:30:00 [facility] BMI Calculated 2020-08-29 10:30:00 [place] andre [facility] Procedures Procedure Date / Time Performing Clinician Source Performed URINALYSIS 2022-05-10 19:36:[address] [facility] TROPONIN I 2022-05-10 18:34:[address] [facility] COMP. METABOLIC PANEL 2022-05-10 18:34:00 Home Matthews [facility] ([id number]) [facility] CBC WITH DIFF 2022-05-10 18:34:[address] [facility] XR CHEST 2 VW 2022-05-10 17:24:[address] [facility] CONSENT/REFUSAL FOR 2022-05-10 16:26:23 Doctor Unassigned, [facility] DIAGNOSIS AND TREATMENT [place] [facility] CONSENT/REFUSAL FOR 2022-05-10 16:26:09 Doctor Unassigned, [facility] DIAGNOSIS AND TREATMENT [place] [facility] URINALYSIS 2022-05-08 22:43:00 Theresa Hickman [facility] XR CHEST 2 VW 2022-05-06 22:56:[address] [facility] COMP. METABOLIC PANEL 2022-05-06 22:14:00 Anette Olea [facility] ([id number]) Medical Branch CBC WITH DIFF 2022-05-06 22:14:[address] [facility] COVID-19 (ID NOW RAPID 2022-05-06 22:14:00 Anette Olea [facility] TESTING) Medical Branch BASIC METABOLIC PANEL (NA, 2022-04-22 21:23:00 Paulette Gray [facility] K, CL, CO2, GLUCOSE, BUN, Medica l Branch CREATININE, CA) CBC WITH DIFF 2022-04-22 21:23:00 Paulette Gray [facility] CONSENT/REFUSAL FOR 2022-04-22 19:45:46 Doctor Unassigned, [facility] DIAGNOSIS AND TREATMENT [place] [facility] SARS-COV-2 COVID-19 2022-03-05 16:09:27 [facility] DIMITRIS-SUCROSE VACCINE [address] [place] [address] YRS+, BIVALENT 0.3ML, IM, (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) FLU 2022-03-05 16:09:27 [facility] VACC(),65+YR,0.5 Medica l Branch ML,IM,ADJUVANTED,QUAD(FLUA D) FLU 2022-03-05 16:09:27 [facility] VACC(),65+YR,0.5 Medica l Branch ML,IM,ADJUVANTED,QUAD(FLUA D) SARS-COV-2 COVID-19 2022-03-05 16:09:27 [facility] DIMITRIS-SUCROSE VACCINE [address] [place] [address] YRS+, BIVALENT 0.3ML, IM, (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) MAGNESIUM 2022-02-15 09:41:[address] [facility] BASIC METABOLIC PANEL (NA, 2022-02-15 09:41:00 Sofia Garcia [facility] K, CL, CO2, GLUCOSE, BUN, Medica l Branch CREATININE, CA) CBC WITH DIFF 2022-02-15 09:41:[address] [facility] N-TERMINAL PRO-BNP 2022-02-15 09:41:00 Sofia Garcia [facility] CBC WITH DIFF 2022-02-15 09:41:[address] [facility] BASIC METABOLIC PANEL (NA, 2022-02-15 09:41:00 Sofia Garcia [facility] K, CL, CO2, GLUCOSE, BUN, Medica l Branch CREATININE, CA) MAGNESIUM 2022-02-15 09:41:[address] [facility] N-TERMINAL PRO-BNP 2022-02-15 09:41:00 Sofia Garcia [facility] BASIC METABOLIC PANEL (NA, 2022-02-13 09:40:00 Sofia Garcia [facility] K, CL, CO2, GLUCOSE, BUN, Medica l Branch CREATININE, CA) CBC WITH DIFF 2022-02-13 09:40:[address] [facility] BASIC METABOLIC PANEL (NA, 2022-02-13 09:40:00 Sofia Garcia [facility] K, CL, CO2, GLUCOSE, BUN, Medica l Branch CREATININE, CA) CBC WITH DIFF 2022-02-13 09:40:[address] [facility] TROPONIN I 2022-02-11 23:41:[address] [facility] N-TERMINAL PRO-BNP 2022-02-11 23:41:00 Sofia Garcia [facility] TROPONIN I 2022-02-11 23:41:[address] [facility] N-TERMINAL PRO-BNP 2022-02-11 23:41:00 Sofia Garcia [facility] HB ECG ROUTINE & RHYTHM 2022-02-11 22:15:36 Sofia Garcia Uni [facility] TRANSTHORACIC ECHO (TTE) 2022-02-11 21:26:50 Sofia Garcia Un [facility] TRANSTHORACIC ECHO (TTE) 2022-02-11 21:26:50 Sofia Garcia [facility] CT ABDOMEN PELVIS W 2022-02-11 07:45:43 Reilly Means [facility] CONTRAST [facility] CT ABDOMEN PELVIS W 2022-02-11 07:45:43 Reilly Means [facility] CONTRAST [facility] RAPID INFLUENZA A/B 2022-02-11 06:54:00 Reilly Means [facility] RAPID INFLUENZA A/B 2022-02-11 06:54:00 Reilly Means [facility] URINALYSIS 2022-02-11 06:45:00 Reilly Means [facility] URINE CULTURE 2022-02-11 06:45:00 Reilly Means [facility] URINALYSIS 2022-02-11 06:45:00 Reilly Means [facility] URINE CULTURE 2022-02-11 06:45:00 Reilly Means [facility] HB ECG ROUTINE & RHYTHM 2022-02-11 05:22:08 Reilly Means [facility] HB ECG ROUTINE & RHYTHM 2022-02-11 05:22:08 Reilly Means [facility] BLOOD CULTURE SCREEN 2022-02-11 04:58:00 Reilly Means [facility] TROPONIN I 2022-02-11 04:58:00 Reilly Means [facility] COMP. METABOLIC PANEL 2022-02-11 04:58:00 Reilly Means [facility] ([id number]) [facility] CBC WITH DIFF 2022-02-11 04:58:00 Reilly Means [facility] PROTHROMBIN TIME / INR 2022-02-11 04:58:00 Reilly Means [facility] ACTIVATED PARTIAL THRMPLAS 2022-02-11 04:58:00 Reilly Means [facility] N-TERMINAL PRO-BNP 2022-02-11 04:58:00 Reilly Means [facility] LACTIC ACID WHOLE BLOOD 2022-02-11 04:58:00 Reilly Means [facility] COVID-19 (ID NOW RAPID 2022-02-11 04:58:00 Reilly Means [facility] TESTING) Medical Branch LAB ONLY COVID 2022-02-11 04:58:00 Reilly Means [facility] CBC WITH DIFF 2022-02-11 04:58:00 Reilly Means [facility] ACTIVATED PARTIAL THRMPLAS 2022-02-11 04:58:00 Reilly Means [facility] PROTHROMBIN TIME / INR 2022-02-11 04:58:00 Reilly Means [facility] COVID-19 (ID NOW RAPID 2022-02-11 04:58:00 Reilly Means [facility] TESTING) Medical Branch COMP. METABOLIC PANEL 2022-02-11 04:58:00 Reilly Means [facility] ([id number]) [facility] TROPONIN I 2022-02-11 04:58:00 Reilly Means [facility] N-TERMINAL PRO-BNP 2022-02-11 04:58:00 Reilly Means [facility] BLOOD CULTURE SCREEN 2022-02-11 04:58:00 Reilly Means [facility] LACTIC ACID WHOLE BLOOD 2022-02-11 04:58:00 Reilly Means [facility] LAB ONLY COVID 2022-02-11 04:58:00 Reilly Means [facility] XR CHEST 1 2022-02-11 04:27:42 Reilly Means [facility] XR CHEST 1 2022-02-11 04:27:42 Reilly Means [facility] HOSPITAL ADMISSION 2022-02-10 05:01:00 Doctor Unassigned, [facility] Name [facility] [place] HOSPITAL ADMISSION 2022-02-10 05:01:00 Doctor Unassigned, [facility] Name Medical Branch ECG 12-LEAD 2021-07-14 15:14:00 Elan Lira [facility] [id number] 2021-06-17 00:00:00 RIKY Freedman [facility] GASTROINTESTINAL PANEL 2020-12-08 22:21:00 Eliseo Arce [facility] XR ABDOMEN 1 2020-12-08 18:06:32 Eliseo Arce Ho [facility] [place] < 1 HOUR 2020-09-05 22:39:00 Eliseo Arce [facility] SURGICAL PATHOLOGY REQUEST 2020-09-05 21:54:00 Eliseo Arce [facility] XR CHEST 1 VW PORTABLE 2020-09-05 19:55:00 [facility] DISCHARGE PATIENT 2020-09-05 17:27:55 [facility] NE AN ELECTIVE 2020-09-05 16:47:23 [facility], INTRAOPERATIVE 2020-09-05 16:27[facility]00 [facility] 2020-09-05 15:04[facility] M. PROTHROMBIN TIME WITH INR 2020-09-05 15:04[facility] Plan of Care Planned Activity Planned Date Details Comments Source Future Scheduled 2022-05-10 SHINGLES VACCINES (1 Met [facility] Test 10:21:35 of 2) [code = SHINGLES VACCINES (1 of 2)] Future Scheduled 2022-05-10 [facility] Test 10:21:35 SCREENING [code = BREAST CANCER SCREENING] Future Scheduled 2022-05-10 COLONOSCOPY SCREENING [facility] Test 10:21:35 [code = COLONOSCOPY SCREENING] Future Scheduled 2022-05-10 HEPATITIS B VACCINES Met [facility] Test 10:21:35 (1 of 3 - Risk 3-dose series) [code = HEPATITIS B VACCINES (1 of 3 - Risk 3-dose series)] Future Scheduled 2022-05-10 COVID-19 VACCINE (3 - [facility] Test 10:21:35 Booster for Pfizer series) [code = COVID-19 VACCINE (3 - Booster for Pfizer series)] Future Scheduled 2022-05-10 65+ PNEUMOCOCCAL [facility] Test 10:21:35 VACCINE (4 - PPSV23 if available, else PCV20) [code = 65+ PNEUMOCOCCAL VACCINE (4 - PPSV23 if available, else PCV20)] Future Scheduled 2022-05-10 INFLUENZA VACCINE Method [facility] Test 10:21:35 [code = INFLUENZA VACCINE] Future Scheduled 2022-05-06 SHINGLES VACCINES (1 Met [facility] Test 14:03:13 of 2) [code = SHINGLES VACCINES (1 of 2)] Future Scheduled 2022-05-06 BREAST CANCER [facility] Test 14:03:13 SCREENING [code = BREAST CANCER SCREENING] Future Scheduled 2022-05-06 COLONOSCOPY SCREENING [facility] Test 14:03:13 [code = COLONOSCOPY SCREENING] Future Scheduled 2022-05-06 HEPATITIS B VACCINES Met [facility] Test 14:03:13 (1 of 3 - Risk 3-dose series) [code = HEPATITIS B VACCINES (1 of 3 - Risk 3-dose series)] Future Scheduled 2022-05-06 COVID-19 VACCINE (3 - [facility] Test 14:03:13 Booster for Pfizer series) [code = COVID-19 VACCINE (3 - Booster for Pfizer series)] Future Scheduled 2022-05-06 65+ PNEUMOCOCCAL [facility] Test 14:03:13 VACCINE (4 - PPSV23 if available, else PCV20) [code = 65+ PNEUMOCOCCAL VACCINE (4 - PPSV23 if available, else PCV20)] Future Scheduled 2022-05-06 INFLUENZA VACCINE Method [facility] Test 14:03:13 [code = INFLUENZA VACCINE] Future Scheduled 2022-04-30 SHINGLES VACCINES (1 Met [facility] Test 01:07:32 of 2) [code = SHINGLES VACCINES (1 of 2)] Future Scheduled 2022-04-30 BREAST CANCER [facility] Test 01:07:32 SCREENING [code = BREAST CANCER SCREENING] Future Scheduled 2022-04-30 COLONOSCOPY SCREENING [facility] Test 01:07:32 [code = COLONOSCOPY SCREENING] Future Scheduled 2022-04-30 HEPATITIS B VACCINES Met [facility] Test 01:07:32 (1 of 3 - Risk 3-dose series) [code = HEPATITIS B VACCINES (1 of 3 - Risk 3-dose series)] Future Scheduled 2022-04-30 COVID-19 VACCINE (3 - [facility] Test 01:07:32 Booster for Pfizer series) [code = COVID-19 VACCINE (3 - Booster for Pfizer series)] Future Scheduled 2022-04-30 65+ [facility] VACCINE (4 - PPSV23 if available, else PCV20) [code = 65+ PNEUMOCOCCAL VACCINE (4 - PPSV23 if available, else PCV20)] Future Scheduled 2022-04-30 INFLUENZA VACCINE Method [facility] Test 01:07:32 [code = INFLUENZA VACCINE] Future Scheduled 2022-04-30 SHINGLES VACCINES (1 Met [facility] Test 01:07:32 of 2) [code = SHINGLES VACCINES (1 of 2)] Future Scheduled 2022-04-30 [facility] Test 01:07:32 SCREENING [code = BRE[facility] SCREENING] Future Scheduled 2022-04-30 COLONOSCOPY SCREENING [facility] Test 01:07:32 [code = COLONOSCOPY SCREENING] Future Scheduled 2022-04-30 HEPATITIS B VACCINES Met [facility] Test 01:07:32 (1 of 3 - Risk 3-dose series) [code = HEPATITIS B VACCINES (1 of 3 - Risk 3-dose series)] Future Scheduled 2022-04-30 COVID-19 VACCINE (3 - [facility] Test 01:07:32 Booster for Pfizer series) [code = COVID-19 VACCINE (3 - Booster for Pfizer series)] Future Scheduled 2022-04-30 65+ [facility] 01:07[facility] VACCINE (4 - PPSV23 if available, else PCV20) [code = 65+ PNEUMOCOCCAL VACCINE (4 - PPSV23 if available, else PCV20)] Future Scheduled 2022-04-30 INFLUENZA VACCINE Method [facility] Test 01:07:32 [code = INFLUENZA VACCINE] Future Scheduled 2022-04-30 SHINGLES VACCINES (1 Met [facility] Test 01:07:32 of 2) [code = SHINGLES VACCINES (1 of 2)] Future Scheduled 2022-04-30 [facility] Test 01:07:32 SCREENING [code = BRE[facility]ER SCREENING] Future Scheduled 2022-04-30 COLONOSCOPY SCREENING [facility] Test 01:07:32 [code = COLONOSCOPY SCREENING] Future Scheduled 2022-04-30 HEPATITIS B VACCINES Met [facility] Test 01:07:32 (1 of 3 - Risk 3-dose series) [code = HEPATITIS B VACCINES (1 of 3 - Risk 3-dose series)] Future Scheduled 2022-04-30 COVID-19 VACCINE (3 - [facility] Test 01:07:32 Booster for Pfizer series) [code = COVID-19 VACCINE (3 - Booster for Pfizer series)] Future Scheduled 2022-04-30 65+ [facility] 01:07:[facility] VACCINE (4 - PPSV23 if available, else PCV20) [code = 65+ PNEUMOCOCCAL VACCINE (4 - PPSV23 if available, else PCV20)] Future Scheduled 2022-04-30 INFLUENZA VACCINE Method [facility] Test 01:07:32 [code = INFLUENZA VACCINE] Future Scheduled 2022-04-25 SHINGLES VACCINES (1 Met [facility] Test 01:45:02 of 2) [code = SHINGLES VACCINES (1 of 2)] Future Scheduled 2022-04-25 [facility] Test 01:45:02 SCREENING [code = [facility] SCREENING] Future Scheduled 2022-04-25 COLONOSCOPY SCREENING [facility] Test 01:45:02 [code = COLONOSCOPY SCREENING] Future Scheduled 2022-04-25 HEPATITIS B VACCINES Met [facility] Test 01:45:02 (1 of 3 - Risk 3-dose series) [code = HEPATITIS B VACCINES (1 of 3 - Risk 3-dose series)] Future Scheduled 2022-04-25 COVID-19 VACCINE (3 - Me [facility] Test 01:45:02 Booster for Pfizer series) [code = COVID-19 VACCINE (3 - Booster for Pfizer series)] Future Scheduled 2022-04-25 65+ [facility] Test 01:[facility]:02 VACCINE (4 - PPSV23 if available, else PCV20) [code = 65+ PNEUMOCOCCAL VACCINE (4 - PPSV23 if available, else PCV20)] Future Scheduled 2022-04-25 INFLUENZA VACCINE Method [facility] Test 01:45:02 [code = INFLUENZA VACCINE] Future Scheduled 2022-03-25 SHINGLES VACCINES (1 Met [facility] Test 14:48:42 of 2) [code = SHINGLES VACCINES (1 of 2)] Future Scheduled 2022-03-25 [facility] Test 14:48:42 SCREENING [code = BRE[facility]ER SCREENING] Future Scheduled 2022-03-25 COLONOSCOPY SCREENING [facility] Test 14:48:42 [code = COLONOSCOPY SCREENING] Future Scheduled 2022-03-25 HEPATITIS B VACCINES Met [facility] Test 14:48:42 (1 of 3 - Risk 3-dose series) [code = HEPATITIS B VACCINES (1 of 3 - Risk 3-dose series)] Future Scheduled 2022-03-25 COVID-19 VACCINE (3 - Me [facility] Test 14:48:42 Booster for Pfizer series) [code = COVID-19 VACCINE (3 - Booster for Pfizer series)] Future Scheduled 2022-03-25 65+ [facility] Test 14:48:42 VACCINE (4 - PPSV23 if available, else PCV20) [code = 65+ PNEUMOCOCCAL VACCINE (4 - PPSV23 if available, else PCV20)] Future Scheduled 2022-03-25 INFLUENZA VACCINE Method [facility] Test 14:48:42 [code = INFLUENZA VACCINE] Future Scheduled 2022-03-25 SHINGLES VACCINES (1 Met [facility] Test 14:48:42 of 2) [code = SHINGLES VACCINES (1 of 2)] Future Scheduled 2022-03-25 [facility] Test 14:48:42 SCREENING [code = BRE[facility]ER SCREENING] Future Scheduled 2022-03-25 COLONOSCOPY SCREENING [facility] Test 14:48:42 [code = COLONOSCOPY SCREENING] Future Scheduled 2022-03-25 HEPATITIS B VACCINES Met [facility] Test 14:48:42 (1 of 3 - Risk 3-dose series) [code = HEPATITIS B VACCINES (1 of 3 - Risk 3-dose series)] Future Scheduled 2022-03-25 COVID-19 VACCINE (3 - [facility] Test 14:48:42 Booster for Pfizer series) [code = COVID-19 VACCINE (3 - Booster for Pfizer series)] Future Scheduled 2022-03-25 65+ [facility] 14:48:42 VACCINE (4 - PPSV23 if available, else PCV20) [code = 65+ PNEUMOCOCCAL VACCINE (4 - PPSV23 if available, else PCV20)] Future Scheduled 2022-03-25 INFLUENZA VACCINE Method [facility] Test 14:48:42 [code = INFLUENZA VACCINE] Future Scheduled 2022-03-25 SHINGLES VACCINES (1 Met [facility] Test 14:48:42 of 2) [code = SHINGLES VACCINES (1 of 2)] Future Scheduled 2022-03-25 [facility] Test 14:48:42 SCREENING [code = BRE[facility]ER SCREENING] Future Scheduled 2022-03-[address] Me [facility] Test 14:48:42 [code = COLONOSCOPY SCREENING] Future Scheduled 2022-03-25 HEPATITIS B VACCINES Met [facility] Test 14:48:42 (1 of 3 - Risk 3-dose series) [code = HEPATITIS B VACCINES (1 of 3 - Risk 3-dose series)] Future Scheduled 2022-03-25 COVID-19 VACCINE (3 - Me [facility] Test 14:48:42 Booster for Pfizer series) [code = COVID-19 VACCINE (3 - Booster for Pfizer series)] Future Scheduled 2022-03-25 65+ [facility]UMOCOCCAL [facility] Test 14:48:42 VACCINE (4 - PPSV23 if available, else PCV20) [code = 65+ PNEUMOCOCCAL VACCINE (4 - PPSV23 if available, else PCV20)] Future Scheduled 2022-03-25 INFLUENZA VACCINE Method [facility] Test 14:48:42 [code = INFLUENZA VACCINE] Future Scheduled 2022-03-25 SHINGLES VACCINES (1 Met [facility] Test 14:48:42 of 2) [code = SHINGLES VACCINES (1 of 2)] Future Scheduled 2022-03-25 [facility] Test 14:48:42 SCREENING [code = BRE[facility]ER SCREENING] Future Scheduled 2022-03-25 COLONOSCOPY SCREENING [facility] Test 14:48:42 [code = COLONOSCOPY SCREENING] Future Scheduled 2022-03-25 HEPATITIS B VACCINES Met [facility] Test 14:48:42 (1 of 3 - Risk 3-dose series) [code = HEPATITIS B VACCINES (1 of 3 - Risk 3-dose series)] Future Scheduled 2022-03-25 COVID-19 VACCINE (3 - Me [facility] Test 14:48:42 Booster for Pfizer series) [code = COVID-19 VACCINE (3 - Booster for Pfizer series)] Future Scheduled 2022-03-25 65+ [facility]CCAL [facility] Test 14:48:42 VACCINE (4 - PPSV23 if available, else PCV20) [code = 65+ PNEUMOCOCCAL VACCINE (4 - PPSV23 if available, else PCV20)] Future Scheduled 2022-03-25 INFLUENZA VACCINE Method [facility] Test 14:48:42 [code = INFLUENZA VACCINE] Future Scheduled 2022-03-25 SHINGLES VACCINES (1 Met [facility] Test 14:48:42 of 2) [code = SHINGLES VACCINES (1 of 2)] Future Scheduled 2022-03-25 [facility] Test 14:48:42 SCREENING [code = BRE[facility]ER SCREENING] Future Scheduled 2022-03-25 COLONOSCOPY SCREENING [facility] Test 14:48:42 [code = COLONOSCOPY SCREENING] Future Scheduled 2022-03-25 HEPATITIS B VACCINES Met [facility] Test 14:48:42 (1 of 3 - Risk 3-dose series) [code = HEPATITIS B VACCINES (1 of 3 - Risk 3-dose series)] Future Scheduled 2022-03-25 COVID-19 VACCINE (3 - [facility] Test 14:48:42 Booster for Pfizer series) [code = COVID-19 VACCINE (3 - Booster for Pfizer series)] Future Scheduled 2022-03-25 65+ PNEUMOCOCCAL [facility] Test 14:48:42 VACCINE (4 - PPSV23 if available, else PCV20) [code = 65+ PNEUMOCOCCAL VACCINE (4 - PPSV23 if available, else PCV20)] Future Scheduled 2022-03-25 INFLUENZA VACCINE Method [facility] Test 14:48:42 [code = INFLUENZA VACCINE] Future Scheduled 2022-03-25 SHINGLES VACCINES (1 Met [facility] Test 14:48:42 of 2) [code = SHINGLES VACCINES (1 of 2)] Future Scheduled 2022-03-25 [facility] Test 14:48:42 SCREENING [code = BREAST CANCER SCREENING] Future Scheduled 2022-03-25 COLONOSCOPY SCREENING [facility] Test 14:48:42 [code = COLONOSCOPY SCREENING] Future Scheduled 2022-03-25 HEPATITIS B VACCINES Met [facility] Test 14:48:42 (1 of 3 - Risk 3-dose series) [code = HEPATITIS B VACCINES (1 of 3 - Risk 3-dose series)] Future Scheduled 2022-03-25 COVID-19 VACCINE (3 - [facility] Test 14:48:42 Booster for Pfizer series) [code = COVID-19 VACCINE (3 - Booster for Pfizer series)] Future Scheduled 2022-03-25 65[facility] 14:48:42 VACCINE (4 - PPSV23 if available, else PCV20) [code = 65+ PNEUMOCOCCAL VACCINE (4 - PPSV23 if available, else PCV20)] Future Scheduled 2022-03-25 INFLUENZA VACCINE Method [facility] Test 14:48:42 [code = INFLUENZA VACCINE] Future Scheduled 2022-03-25 SHINGLES VACCINES (1 Met [facility] Test 14:48:42 of 2) [code = SHINGLES VACCINES (1 of 2)] Future Scheduled 2022-03-25 [facility] Test 14:48:42 SCREENING [code = BRE[facility]ER SCREENING] Future Scheduled 2022-03-25 COLONOSCOPY SCREENING [facility] Test 14:48:42 [code = COLONOSCOPY SCREENING] Future Scheduled 2022-03-25 HEPATITIS B VACCINES Met [facility] Test 14:48:42 (1 of 3 - Risk 3-dose series) [code = HEPATITIS B VACCINES (1 of 3 - Risk 3-dose series)] Future Scheduled 2022-03-25 COVID-19 VACCINE (3 - Me [facility] Test 14:48:42 Booster for Pfizer series) [code = COVID-19 VACCINE (3 - Booster for Pfizer series)] Future Scheduled 2022-03-25 65+ [facility]OCCAL [facility] Test 14:48:42 VACCINE (4 - PPSV23 if available, else PCV20) [code = 65+ PNEUMOCOCCAL VACCINE (4 - PPSV23 if available, else PCV20)] Future Scheduled 2022-03-25 INFLUENZA VACCINE Method [facility] Test 14:48:42 [code = INFLUENZA VACCINE] Future Scheduled 2022-03-25 SHINGLES VACCINES (1 Met [facility] Test 14:48:42 of 2) [code = SHINGLES VACCINES (1 of 2)] Future Scheduled 2022-03-25 [facility] Test 14:48:42 SCREENING [code = BRE[facility] CAN[facility]ER SCREENING] Future Scheduled 2022-03-25 COLONOSCOPY SCREENING [facility] Test 14:48:42 [code = COLONOSCOPY SCREENING] Future Scheduled 2022-03-25 HEPATITIS B VACCINES Met [facility] Test 14:48:42 (1 of 3 - Risk 3-dose series) [code = HEPATITIS B VACCINES (1 of 3 - Risk 3-dose series)] Future Scheduled 2022-03-25 COVID-19 VACCINE (3 - Me [facility] Test 14:48:42 Booster for Pfizer series) [code = COVID-19 VACCINE (3 - Booster for Pfizer series)] Future Scheduled 2022-03-25 65+ [facility]AL [facility] Test 14:48:42 VACCINE (4 - PPSV23 if available, else PCV20) [code = 65+ PNEUMOCOCCAL VACCINE (4 - PPSV23 if available, else PCV20)] Future Scheduled 2022-03-25 INFLUENZA VACCINE Method [facility] Test 14:48:42 [code = INFLUENZA VACCINE] Future Scheduled 2022-03-25 SHINGLES VACCINES (1 Met [facility] Test 14:48:42 of 2) [code = SHINGLES VACCINES (1 of 2)] Future Scheduled 2022-03-25 [facility] Test 14:48:42 SCREENING [code = BRE[facility]ER SCREENING] Future Scheduled 2022-03-25 COLONOSCOPY SCREENING [facility] Test 14:48:42 [code = COLONOSCOPY SCREENING] Future Scheduled 2022-03-25 HEPATITIS B VACCINES Met [facility] Test 14:48:42 (1 of 3 - Risk 3-dose series) [code = HEPATITIS B VACCINES (1 of 3 - Risk 3-dose series)] Future Scheduled 2022-03-25 COVID-19 VACCINE (3 - [facility] Test 14:48:42 Booster for Pfizer series) [code = COVID-19 VACCINE (3 - Booster for Pfizer series)] Future Scheduled 2022-03-25 65[facility] 14:48:[facility] VACCINE (4 - PPSV23 if available, else PCV20) [code = 65+ PNEUMOCOCCAL VACCINE (4 - PPSV23 if available, else PCV20)] Future Scheduled 2022-03-25 INFLUENZA VACCINE Method [facility] Test 14:48:42 [code = INFLUENZA VACCINE] Future Scheduled 2022-03-04 SHINGLES VACCINES (1 Met [facility] Test 14:03:57 of 2) [code = SHINGLES VACCINES (1 of 2)] Future Scheduled 2022-03-04 [facility] Test 14:03:57 SCREENING [code = BRE[facility]ER SCREENING] Future Scheduled 2022-03-04 COLONOSCOPY SCREENING [facility] Test 14:03:57 [code = COLONOSCOPY SCREENING] Future Scheduled 2022-03-04 HEPATITIS B VACCINES Met [facility] Test 14:03:57 (1 of 3 - Risk 3-dose series) [code = HEPATITIS B VACCINES (1 of 3 - Risk 3-dose series)] Future Scheduled 2022-03-04 COVID-19 VACCINE (3 - [facility] Test 14:03:57 Booster for Pfizer series) [code = COVID-19 VACCINE (3 - Booster for Pfizer series)] Future Scheduled 2022-03-04 65[facility] 14:03:57 VACCINE (4 - PPSV23 if available, else PCV20) [code = 65+ PNEUMOCOCCAL VACCINE (4 - PPSV23 if available, else PCV20)] Future Scheduled 2022-03-04 INFLUENZA VACCINE Method [facility] Test 14:03:57 [code = INFLUENZA VACCINE] Future Scheduled 2022-03-04 SHINGLES VACCINES (1 Met [facility] Test 14:03:57 of 2) [code = SHINGLES VACCINES (1 of 2)] Future Scheduled 2022-03-04 [facility] Test 14:03:57 SCREENING [code = BRE[facility]ER SCREENING] Future Scheduled 2022-03-04 COLONOSCOPY SCREENING [facility] Test 14:03:57 [code = COLONOSCOPY SCREENING] Future Scheduled 2022-03-04 HEPATITIS B VACCINES Met [facility] Test 14:03:57 (1 of 3 - Risk 3-dose series) [code = HEPATITIS B VACCINES (1 of 3 - Risk 3-dose series)] Future Scheduled 2022-03-04 COVID-19 VACCINE (3 - [facility] Test 14:03:57 Booster for Pfizer series) [code = COVID-19 VACCINE (3 - Booster for Pfizer series)] Future Scheduled 2022-03-04 65+ PNEUMOCOCCAL [facility] Test 14:03:57 VACCINE (4 - PPSV23 if available, else PCV20) [code = 65+ PNEUMOCOCCAL VACCINE (4 - PPSV23 if available, else PCV20)] Future Scheduled 2022-03-04 INFLUENZA VACCINE Method [facility] Test 14:03:57 [code = INFLUENZA VACCINE] Future Scheduled 2022-03-04 SHINGLES VACCINES (1 Met [facility] Test 14:03:57 of 2) [code = SHINGLES VACCINES (1 of 2)] Future Scheduled 2022-03-04 [facility] Test 14:03:57 SCREENING [code = BREAST [facility]ER SCREENING] Future Scheduled 2022-03-04 COLONOSCOPY SCREENING [facility] Test 14:03:57 [code = COLONOSCOPY SCREENING] Future Scheduled 2022-03-04 HEPATITIS B VACCINES Met [facility] Test 14:03:57 (1 of 3 - Risk 3-dose series) [code = HEPATITIS B VACCINES (1 of 3 - Risk 3-dose series)] Future Scheduled 2022-03-04 COVID-19 VACCINE (3 - Me [facility] Test 14:03:57 Booster for Pfizer series) [code = COVID-19 VACCINE (3 - Booster for Pfizer series)] Future Scheduled 2022-03-04 65+ PNEUMOCOCCAL [facility] Test 14:03:57 VACCINE (4 - PPSV23 if available, else PCV20) [code = 65+ PNEUMOCOCCAL VACCINE (4 - PPSV23 if available, else PCV20)] Future Scheduled 2022-03-04 INFLUENZA VACCINE Method [facility] Test 14:03:57 [code = INFLUENZA VACCINE] Future Scheduled 2022-03-04 SHINGLES VACCINES (1 Met [facility] Test 14:03:57 of 2) [code = SHINGLES VACCINES (1 of 2)] Future Scheduled 2022-03-04 [facility] Test 14:03:57 SCREENING [code = [facility] SCREENING] Future Scheduled 2022-03-04 COLONOSCOPY SCREENING [facility] Test 14:03:57 [code = COLONOSCOPY SCREENING] Future Scheduled 2022-03-04 HEPATITIS B VACCINES Met [facility] Test 14:03:57 (1 of 3 - Risk 3-dose series) [code = HEPATITIS B VACCINES (1 of 3 - Risk 3-dose series)] Future Scheduled 2022-03-04 COVID-19 VACCINE (3 - [facility] Test 14:03:57 Booster for Pfizer series) [code = COVID-19 VACCINE (3 - Booster for Pfizer series)] Future Scheduled 2022-03-04 65[facility] 14:03:57 VACCINE (4 - PPSV23 if available, else PCV20) [code = 65+ PNEUMOCOCCAL VACCINE (4 - PPSV23 if available, else PCV20)] Future Scheduled 2022-03-04 INFLUENZA VACCINE Method [facility] Test 14:03:57 [code = INFLUENZA VACCINE] Future Scheduled 2022-02-11 SHINGLES VACCINES (1 Met [facility] Test 13:39:12 of 2) [code = SHINGLES VACCINES (1 of 2)] Future Scheduled 2022-02-11 [facility] Test 13:39:12 SCREENING [code = [facility] SCREENING] Future Scheduled 2022-02-11 COLONOSCOPY SCREENING [facility] Test 13:39:12 [code = COLONOSCOPY SCREENING] Future Scheduled 2022-02-11 HEPATITIS B VACCINES Met [facility] Test 13:39:12 (1 of 3 - Risk 3-dose series) [code = HEPATITIS B VACCINES (1 of 3 - Risk 3-dose series)] Future Scheduled 2022-02-11 COVID-19 VACCINE (3 - Me [facility] Test 13:39:12 Booster for Pfizer series) [code = COVID-19 VACCINE (3 - Booster for Pfizer series)] Future Scheduled 2022-02-11 65+ [facility] 13:39:12 VACCINE (4 - PPSV23 or PCV20) [code = 65+ PNEUMOCOCCAL VACCINE (4 - PPSV23 or PCV20)] Future Scheduled 2022-02-11 INFLUENZA VACCINE Method [facility] Test 13:39:12 [code = INFLUENZA VACCINE] Future Scheduled 2022-01-29 SHINGLES VACCINES (1 Met [facility] Test 14:07:20 of 2) [code = SHINGLES VACCINES (1 of 2)] Future Scheduled 2022-01-29 [facility] Test 14:07:20 SCREENING [code = BRE[facility] SCREENING] Future Scheduled 2022-01-29 COLONOSCOPY SCREENING [facility] Test 14:07:20 [code = COLONOSCOPY SCREENING] Future Scheduled 2022-01-29 HEPATITIS B VACCINES Met [facility] Test 14:07:20 (1 of 3 - Risk 3-dose series) [code = HEPATITIS B VACCINES (1 of 3 - Risk 3-dose series)] Future Scheduled 2022-01-29 COVID-19 VACCINE (3 - [facility] Test 14:07:20 Booster for Pfizer series) [code = COVID-19 VACCINE (3 - Booster for Pfizer series)] Future Scheduled 2022-01-29 65+ [facility] 14:07:[facility] VACCINE (4 - PPSV23 or PCV20) [code = 65+ PNEUMOCOCCAL VACCINE (4 - PPSV23 or PCV20)] Future Scheduled 2022-01-29 INFLUENZA VACCINE Method [facility] Test 14:07:20 [code = INFLUENZA VACCINE] Future Scheduled 2022-01-29 SHINGLES VACCINES (1 Met [facility] Test 14:07:20 of 2) [code = SHINGLES VACCINES (1 of 2)] Future Scheduled 2022-01-29 [facility] Test 14:07:20 SCREENING [code = [facility] SCREENING] Future Scheduled 2022-01-29 COLONOSCOPY SCREENING [facility] Test 14:07:20 [code = COLONOSCOPY SCREENING] Future Scheduled 2022-01-29 HEPATITIS B VACCINES Met [facility] Test 14:07:20 (1 of 3 - Risk 3-dose series) [code = HEPATITIS B VACCINES (1 of 3 - Risk 3-dose series)] Future Scheduled 2022-01-29 COVID-19 VACCINE (3 - [facility] Test 14:07:20 Booster for Pfizer series) [code = COVID-19 VACCINE (3 - Booster for Pfizer series)] Future Scheduled 2022-01-29 65+ PNEUMOCOCCAL [facility] Test 14:07:20 VACCINE (4 - PPSV23 or PCV20) [code = 65+ PNEUMOCOCCAL VACCINE (4 - PPSV23 or PCV20)] Future Scheduled 2022-01-29 INFLUENZA VACCINE Method [facility] Test 14:07:20 [code = INFLUENZA VACCINE] Future Scheduled 2022-01-29 SHINGLES VACCINES (1 Met [facility] Test 14:07:20 of 2) [code = SHINGLES VACCINES (1 of 2)] Future Scheduled 2022-01-29 [facility] 14:07:20 SCREENING [code = [facility] SCREENING] Future Scheduled 2022-01-29 COLONOSCOPY SCREENING [facility] Test 14:07:20 [code = COLONOSCOPY SCREENING] Future Scheduled 2022-01-29 HEPATITIS B VACCINES Met [facility] Test 14:07:20 (1 of 3 - Risk 3-dose series) [code = HEPATITIS B VACCINES (1 of 3 - Risk 3-dose series)] Future Scheduled 2022-01-29 COVID-19 VACCINE (3 - [facility] Test 14:07:20 Booster for Pfizer series) [code = COVID-19 VACCINE (3 - Booster for Pfizer series)] Future Scheduled 2022-01-29 65+ PNEUMOCOCCAL [facility] Test 14:07:20 VACCINE (4 - PPSV23 or PCV20) [code = 65+ PNEUMOCOCCAL VACCINE (4 - PPSV23 or PCV20)] Future Scheduled 2022-01-29 INFLUENZA VACCINE Method [facility] Test 14:07:20 [code = INFLUENZA VACCINE] Future Scheduled 2022-01-29 SHINGLES VACCINES (1 Met [facility] Test 14:07:20 of 2) [code = SHINGLES VACCINES (1 of 2)] Future Scheduled 2022-01-29 [facility] 14:07:20 SCREENING [code = [facility] SCREENING] Future Scheduled 2022-01-29 COLONOSCOPY SCREENING [facility] Test 14:07:20 [code = COLONOSCOPY SCREENING] Future Scheduled 2022-01-29 HEPATITIS B VACCINES Met [facility] Test 14:07:20 (1 of 3 - Risk 3-dose series) [code = HEPATITIS B VACCINES (1 of 3 - Risk 3-dose series)] Future Scheduled 2022-01-29 COVID-19 VACCINE (3 - [facility] Test 14:07:20 Booster for Pfizer series) [code = COVID-19 VACCINE (3 - Booster for Pfizer series)] Future Scheduled 2022-01-29 65+ [facility]20 VACCINE (4 - PPSV23 or PCV20) [code = 65+ PNEUMOCOCCAL VACCINE (4 - PPSV23 or PCV20)] Future Scheduled 2022-01-29 INFLUENZA VACCINE Method [facility] Test 14:07:20 [code = INFLUENZA VACCINE] Future Scheduled 2022-01-20 SHINGLES VACCINES (1 Met [facility] Test 06:12:34 of 2) [code = SHINGLES VACCINES (1 of 2)] Future Scheduled 2022-01-20 [facility] Test 06:12:34 malignant neoplasm of cervix (procedure) [code = 664517186] Future Scheduled 2022-01-20 [facility] Test 06:12:34 SCREENING [code = BREAST CANCER SCREENING] Future Scheduled 2022-01-20 COLONOSCOPY SCREENING [facility] Test 06:12:34 [code = COLONOSCOPY SCREENING] Future Scheduled 2022-01-20 HEPATITIS B VACCINES Met [facility] Test 06:12:34 (1 of 3 - Risk 3-dose series) [code = HEPATITIS B VACCINES (1 of 3 - Risk 3-dose series)] Future Scheduled 2022-01-20 COVID-19 VACCINE (3 - [facility] Test 06:12:34 Booster for Pfizer series) [code = COVID-19 VACCINE (3 - Booster for Pfizer series)] Future Scheduled 2022-01-20 65+ PNEUMOCOCCAL [facility] Test 06:12:34 VACCINE (4 - PPSV23 or PCV20) [code = 65+ PNEUMOCOCCAL VACCINE (4 - PPSV23 or PCV20)] Future Scheduled 2022-01-20 INFLUENZA VACCINE Method [facility] Test 06:12:34 [code = INFLUENZA VACCINE] Future Scheduled 2022-01-16 SHINGLES VACCINES (1 Met [facility] Test 12:09:25 of 2) [code = SHINGLES VACCINES (1 of 2)] Future Scheduled 2022-01-16 [facility] Test 12:09:25 malignant neoplasm of cervix (procedure) [code = 696894845] Future Scheduled 2022-01-16 [facility] Test 12:09:25 SCREENING [code = BREAST CANCER SCREENING] Future Scheduled 2022-01-16 COLONOSCOPY SCREENING [facility] Test 12:09:25 [code = COLONOSCOPY SCREENING] Future Scheduled 2022-01-16 HEPATITIS B VACCINES Met [facility] Test 12:09:25 (1 of 3 - Risk 3-dose series) [code = HEPATITIS B VACCINES (1 of 3 - Risk 3-dose series)] Future Scheduled 2022-01-16 COVID-19 VACCINE (3 - [facility] Test 12:09:25 Booster for Pfizer series) [code = COVID-19 VACCINE (3 - Booster for Pfizer series)] Future Scheduled 2022-01-16 65+ PNEUMOCOCCAL [facility] Test 12:09:25 VACCINE (4 - PPSV23 or PCV20) [code = 65+ PNEUMOCOCCAL VACCINE (4 - PPSV23 or PCV20)] Future Scheduled 2022-01-16 INFLUENZA VACCINE Method [facility] Test 12:09:25 [code = INFLUENZA VACCINE] Future Scheduled 2022-01-14 SHINGLES VACCINES (1 Met [facility] Test 04:11:46 of 2) [code = SHINGLES VACCINES (1 of 2)] Future Scheduled 2022-01-14 [facility] Test 04:11:46 malignant neoplasm of cervix (procedure) [code = [id number]] Future Scheduled 2022-01-14 [facility] Test 04:11:46 SCREENING [code = BREAST CANCER SCREENING] Future Scheduled 2022-01-14 COLONOSCOPY SCREENING [facility] Test 04:11:46 [code = COLONOSCOPY SCREENING] Future Scheduled 2022-01-14 HEPATITIS B VACCINES Met [facility] Test 04:11:46 (1 of 3 - Risk 3-dose series) [code = HEPATITIS B VACCINES (1 of 3 - Risk 3-dose series)] Future Scheduled 2022-01-14 COVID-19 VACCINE (3 - Me [facility] Test 04:11:46 Booster for Pfizer series) [code = COVID-19 VACCINE (3 - Booster for Pfizer series)] Future Scheduled 2022-01-14 65+ PNEUMOCOCCAL [facility] Test 04:11:46 VACCINE (4 - PPSV23 or PCV20) [code = 65+ PNEUMOCOCCAL VACCINE (4 - PPSV23 or PCV20)] Future Scheduled 2022-01-14 INFLUENZA VACCINE Method [facility] Test 04:11:46 [code = INFLUENZA VACCINE] Future Scheduled 2021-08-26 [facility] Test 13:02:23 malignant neoplasm of cervix (procedure) [code = [id number]] Future Scheduled 2021-08-26 [facility] Test 13:02:23 SCREENING [code = BREAST CANCER SCREENING] Future Scheduled 2021-08-26 COLONOSCOPY SCREENING [facility] Test 13:02:23 [code = COLONOSCOPY SCREENING] Future Scheduled 2021-08-26 [facility] Test 13:02:23 malignant neoplasm of lung (procedure) [code = 589682939] Future Scheduled 2021-08-26 SHINGLES VACCINES (#1) [facility] Test 13:02:23 [code = SHINGLES VACCINES (#1)] Future Scheduled 2021-08-26 COVID-19 VACCINE (3 - [facility] Test 13:02:23 Pfizer risk 4-dose series) [code = COVID-19 VACCINE (3 - Pfizer risk 4-dose series)] Future Scheduled 2021-08-26 65+ PNEUMOCOCCAL [facility] Test 13:02:23 VACCINE (4 of 4 - PPSV23) [code = 65+ PNEUMOCOCCAL VACCINE (4 of 4 - PPSV23)] Future Scheduled 2021-08-26 INFLUENZA VACCINE Method [facility] Test 13:02:23 [code = INFLUENZA VACCINE] Encounters Start End Encounter Admission Attending Care Care Encounter Source Date/Time Date/Time Type Type Clinicians Facility Department ID 2022-02-18 Outpatient CHW CHW [id number] [place] 14:30:[address] [place] [address] and [facility] 2021-07-14 Outpatient SADIKOVIC, [facility] [id number] [place] 09:33:51 ELAN [facility] 2021-06-02 Outpatient HEMATPOUR, [facility] [id number] [place] 13:58:59 [facility] 2021-04-28 Outpatient HEMATPOUR, [facility] [id number] [place] 11:21:22 KHASHAYAR Healt [facility] 2021-03-20 Emergency [facility] [id number] Univers [facility]:07[facility]12 Outpatient HEMATPOUR, [facility] [id number] [place] 08:16:46 KHASHAYAR Healt h 2020-10-31 Outpatient HEMATPOUR, [facility] [id number] [place] 09:44:50 KHASHAYAR Healt h 2020-09-30 Outpatient HEMATPOUR, [facility] [id number] [place] 13:16:03 KHASHAYAR Healt h 2022-05-10 2022-05-10 Emergency X BYRON, [facility] ERT [id number] Univers 10:30:00 16:31:00 HOME [facility] 2022-05-10 2022-05-10 Emergency Novelty, TRAUMA 1.2.840.114 [id number] Univers 10:30:00 16:31:00 Home B BARCELONETA 350.1.13.10 [place] [id number] [facility] [address] Branch 2022-05-10 2022-05-10 Telephone East, UNIVERSIT 1.2.840.114 [id number] Univers 00:00:00 00:00:00 [facility] 350.1.13.10 i ty of [place] [id number] [facility] [address] 2022-05-08 2022-05-08 Emergency X VICK, [facility] ERT [id number] Univers 16:18:00 18:42:00 THERESA [facility] 2022-05-08 2022-05-08 [facility] 1.2.840.114 [id number] Univers 16:18:00 18:42:00 Theresa BULLOCK 350.1.13.10 ity of [facility] 4.2.7.2.686 [id number] [address] 2022-05-07 2022-05-07 Telephone [facility] 1.2.840.114 [id number] Univers 00:00:00 00:00:00 [facility] 350.1.13.10 i ty [place] [id number] [address] 2022-05-06 2022-05-06 Emergency [facility] [id number] Univers 14:13:00 18:19:00 ANETTE barbosa [facility] 2022-05-06 2022-05-06 Emergency [facility] 1.2.537.516 [id number] Univers 14:13:00 18:19:00 Anette BULLOCK 350.1.13.10 ity of [place] 4.2.7.2.686 [facility] [id number] [address] 2022-05-06 2022-05-06 Telephone [facility] 1.2.840.114 [id number] Univers 00:00:00 00:00:00 [facility] 350.1.13.10 i [id number] [address] 2022-04-22 2022-04-22 Emergency X [facility] ERT [id number] Univers 13:55:00 17:00:00 PAULETTE [facility] 2022-04-22 2022-04-22 Emergency [facility] 1.2.001.491 [id number] Univers 13:55:00 17:00:00 Paulette BULLOCK 350.1.13.10 i ty of [place] 4.2.7.2.686 [facility] [id number] [address] 2022-04-07 2022-04-07 Outpatient R UNKNOWN, [facility] [id number] Univers 20:40:00 20:40:00 ATTENDING ity [facility] 2022-04-07 2022-04-07 Telephone Devin, 1.2.840.6 [id number] Univers 00:00:00 00:00:00 Robbi Marika 52086.1.1 i ty of 3.104.2.7 [place] .3.035368 Medica l .[place] 2022-03-05 2022-03-05 Supervisor In Charge Yohan Cardenasrey 1.2.840.1 [id number] Univers 13:45:00 14:00:00 Visit [facility] 51632.1.1 ity of 3.104.2.7 [place] .3.176379 Medica l .8 [place] 2022-03-05 2022-03-05 Office JOSÉ ANTONIO Cardenas 1.2.377.333 [id number] Univers 13:00:00 13:30:00 Visit [place] [facility] 350.1.13.10 i ty of CLINICS 4.2.7.2.686 Richi bach [id number] Medi porfirio [address] [place] 2022-03-05 2022-03-05 Outpatient R [facility] [id number] Univers 13:00:00 13:00:00 [facility] 2022-02-26 2022-02-26 Outpatient R [facility] [id number] Univers 08:30:00 08:30:00 [facility] 2022-02-26 2022-02-26 Outpatient R [facility] [id number] Univers 08:30:00 08:30:00 [facility] 2022-02-17 2022-02-17 Transition Stevo, 1.2.840.5 [id number] Univers 00:00:00 00:00:00 of Care Isaias Arredondo 60008.1.1 it y of 3.104.2.7 [place] .3.140354 Medica l .8 [place] 2022-02-10 2022-02-16 Inpatient [facility] [id number] Univers 22:59:00 19:27:00 TOMY barbosa [facility] 2022-02-10 2022-02-16 Hospital Reilly Means 1.2.840.1 [id number] Univers 22:59:00 19:27:00 Encounter Ofe Shields 17305.1.1 ity of [place] 3.104.2.7 [place] .3.865106 Medica l .8 Branch 2022-02-11 2022-02-11 Telephone East, 1.2.840.6 [id number] Univers 00:00:00 00:00:00 [place] 97249.1.1 ity of 3.104.2.7 [place] .3.292859 Medica l .8 Branch 2022-02-10 2022-02-10 Travel 1.2.840.1 1.2.881.926 [id number] Univers 00:00:00 00:00:00 42719.1.1 350.1.13.10 ity of 3.104.2.7 4.[place].7.3.698 [place] .3.569328 084.8 Medica l .8 Branch 2022-01-30 2022-01-30 Telephone East, 1.2.840.3 [id number] Univers 00:00:00 00:00:00 [place] 17060.1.1 ity of 3.104.2.7 [place] .3.218268 Medica l .8 Branch 2022-01-06 2022-01-06 Orders Doctor FERMIN 1.2.840.114 [id number] Univers 00:00:00 00:00:00 Only Unassigned, JACKELINE 350.1.13.10 ity of [place] [facility] 4.2.7.2.686 Yomi as [id number] [facility] porfirio 009 [place] 2021-12-25 2021-12-25 Orders Doctor FERMIN 1.2.840.114 [id number] Univers 00:00:00 00:00:00 Only Unassigned, JACKELINE 350.1.13.10 ity of [place] [facility] 4.2.7.2.686 Yomi as [id number] Medi porfirio 009 [place] 2021-12-122021-12-13 Emergency X Bill COLES [facility] ERT [id number] Univers 23:53:00 01:52:00 ity [facility] 2021-12-12 2021-12-13 Emergency Bill Coles [facility] 1.2.840.114 [id number] Univers 23:53:00 01:52:00 [facility] 350.1.13.10 i ty of [facility] 4.2.7.2.[place] [id number] [facility] 084 Branch 2021-11-20 2021-11-20 Supervisor In Charge [facility] UNIVERSIT 1.2.840.114 [id number] Univers 09:45:00 10:00:00 Visit [facility] 350.1.13.[address] [facility] 4.2.7.2.[place] [id number] [facility] 316 Branch 2021-11-20 2021-11-20 Office [facility] 1.2.879.300 [id number] Univers 08:30:00 09:00:00 Visit [facility] 350.1.13.[address] [facility] 4.2.7.2.[place] [id number] [facility] 089 [place] 2021-11-20 2021-11-20 Outpatient R [facility] [id number] Univers 08:30:00 08:30:00 [facility] 2021-11-20 2021-11-20 Outpatient R [facility] [id number] Univers 08:30:00 08:30:00 [facility] 2021-11-20 2021-11-20 Outpatient R [facility] [id number] Univers 08:30:00 08:30:00 [facility] 2021-11-20 2021-11-20 Outpatient R [facility] [id number] Univers 08:30:00 08:30:00 [facility] 2021-10-24 2021-10-24 Emergency X WALKER [facility] ERT [id number] Univers 16:27:00 22:26:00 CHARITY [facility] 2021-10-24 2021-10-24 Emergency X WALKER [facility] ERT [id number] Univers 16:27:00 22:26:00 CHARITY barbosa [facility] 2021-10-24 2021-10-24 Emergency Reilly Means [facility] 1.2.840. 114 [id number] Univers 16:27:00 22:26:00 Charity Mcallister 350.1.13.10 ity of [place] 4.2.7.2.686 [facility] [id number] [address] 2021-10-23 2021-10-24 Emergency X [facility] [id number] Univers 20:22:00 02:57:00 CHARITY [facility] 2021-10-23 2021-10-24 [facility] 1.2.929.612 [id number] Univers 20:22:00 02:57:00 Charity Bach [place] 350.1.13.10 ity of [place] 4.2.7.2.686 [facility] [id number] [address] 2021-09-07 2021-09-07 Outpatient R SELF, [facility] [id number] Univers 08:00:00 08:00:00 GADIEL raheemcharlie vogel [facility] 2021-09-07 2021-09-07 Outpatient R SELF, [facility] [id number] Univers 08:00:00 08:00:00 GADIEL rodas [facility] 2021-08-21 2021-08-21 Outpatient R RONALD, [facility] [id number] Univers 10:45:00 10:45:00 SANTIAGO barbosa [facility] 2021-08-21 2021-08-21 Supervisor In Charge [place] Cardenas 1.2.840.1 [id number] Univers 10:45:00 10:45:00 Visit [facility] 82923.1.1 ity of 3.104.2.7 [place] .3.422215 Medica l .8 [place] 2021-08-21 2021-08-21 Office Qi Cardenas2.840.3 [id number] Univers 08:30:00 09:00:00 Visit [place] 83028.1.1 ity of 3.104.2.7 [place] .3.649806 Medica l .8 [place] 2021-08-21 2021-08-21 Office [facility] 1.2.222.787 [id number] Univers 08:30:00 09:00:00 Visit [place] [facility] 350.1.13.10 i ty of CL[place] 4[place] [id number] [facility] porfirio [address] [place] 2021-08-21 2021-08-21 Outpatient [facility] [id number] Univers 08:30:00 08:30:00 SANTIAGO [facility] 2021-08-21 2021-08-21 Travel 1.2.840.1 1.2.280.199 [id number] Univers 00:00:00 00:00:00 77322.1.1 350.1.13.10 ity of 3.104.2.7 4.[place].7.3.698 [place] .3.361503 084.8 Medica l .8 [place] 2021-08-14 2021-08-14 Telephone East, 1.2.840.1 [id number] Univers 00:00:00 00:00:00 [place] 94665.1.1 ity of 3.104.2.7 [place] .3.077553 Medica l .8 [place] 2021-08-13 2021-08-13 Telephone East, 1.2.840.5 [id number] Univers 00:00:00 00:00:00 [place] 08822.1.1 ity of 3.104.2.7 [place] .3.337397 Medica l .8 [place] 2021-08-11 2021-08-11 Outpatient R [facility] [id number] Univers 08:00:00 08:00:00 SANTIAGO barbosa [facility] 2021-08-05 2021-08-05 Inpatient WINTER Leal OUTD [id number] [facility] 05:24:00 05:24:00 Mike [facility] 2021-07-20 2021-07-20 Outpatient R EAST, [facility] [id number] Univers 10:00:00 10:00:00 [facility] 2021-07-14 2021-07-14 Office Pankaj, UTP 6400 1.2.840.114 [id number] [place] 08:45:00 09:34:[address] 350.1.13.58 Health 9.2.7.2.686 [id number] 1 2021-07-09 2021-07-09 Telephone Placidopour, UTP 6400 1.2.840.114 [id number] [place] 00:00:00 00:00:[address] 350.1.13.58 Health 9.2.7.2.686 [id number] 1 2021-07-09 2021-07-09 Telephone Placidopour, UTP 6400 1.2.840.114 [id number] [place] 00:00:00 00:00:[address] 350.1.13.58 Health 9.2.7.2.686 [id number] 1 2021-07-03 2021-07-03 Outpatient R EAST, [facility] [id number] Univers 08:00:00 08:00:00 [facility] 2021-06-17 2021-06-17 Inpatient RAUL Lund, HCACL INTE.02 [id number] [facility] 10:56:00 14:36:00 Mike 47 [facility] 2021-06-15 2021-06-15 Outpatient R SELF, [facility] [id number] Univers 10:15:00 11:07:21 GADIEL vogel [facility] 2021-06-15 2021-06-15 Outpatient R SELF, [facility] [id number] Univers 10:15:00 10:15:00 GADIEL vogel f [facility] 2021-06-15 2021-06-15 Outpatient R SELF, [facility] [id number] Univers 10:15:00 10:15:00 GADIEL vogel [facility] 2021-06-15 2021-06-15 Orders Doctor 1.2.840.8 [id number] Univers 00:00:00 00:00:00 Only Unassigned, 79363.1.1 ity of [place] 3.104.2.7 [place] .3.880282 Medica l .8 Branch 2021-06-15 2021-06-15 Travel 1.2.840.1 1.2.187.075 [id number] Univers 00:00:00 00:00:00 37671.1.1 350.1.13.10 ity of 3.104.2.7 4.2.7.3.698 [place] .3.594117 084.8 Medica l .8 [place] 2021-06-11 2021-06-11 Refill East, UNIVERSIT 1.2.662.361 [id number] Univers 00:00:00 00:00:00 [facility] 350.1.13.10 i ty of CL[place] [id number] [address] 2021-06-11 2021-06-11 Refill [facility], 1.2.840.7 [id number] Univers 00:00:00 00:00:00 [place] 96662.1.1 ity of 3.104.2.7 [place] .3.646689 Medica l .8 [place] 2021-06-05 2021-06-05 Outpatient R [facility] [id number] Univers 09:00:00 09:00:00 SANTIAGO ity of [facility] 2021-06-02 2021-06-02 Telephone [facility], [facility] 1.2.840.114 [id number] Univers 00:00:00 00:00:00 [facility] 350.1.13.10 i ty of CL[place] [id number] [address] 2021-06-02 2021-06-02 Telephone [facility], 1.2.840.4 [id number] Univers 00:00:00 00:00:00 [place] 86964.1.1 ity of 3.104.2.7 [place] .3.327598 Medica l .8 Branch 2021-05-29 2021-05-29 Telephone East, 1.2.840.9 [id number] Univers 00:00:00 00:00:00 [place] 76156.1.1 ity of 3.104.2.7 [place] .3.776459 Medica l .8 Branch 2021-05-29 2021-05-29 Telephone East, 1.2.840.0 [id number] [id number] Univers 00:00:00 00:00:00 [place] 69023.1.1 ity of 3.104.2.7 [place] .3.168453 Medica l .8 Branch 2021-05-25 2021-05-25 Outpatient R RODO, [facility] [id number] Univers 08:00:00 08:00:00 GADIEL barbosa [facility] 2021-04-29 2021-04-29 Outpatient R [facility] [id number] Univers 08:00:00 08:00:00 NIKOLAI barbosa [facility] 2021-04-28 2021-04-28 Telephone Hematpour, UTP 6400 1.2.840.114 [id number] [place] 00:00:00 00:00:[address] 350.1.13.58 Health 9.2.7.2.686 [id number] 1 2021-04-28 2021-04-28 Telephone Jailyn, 1.2.840.2 [id number] 21 [id number] Methodi 00:00:00 00:00:[address] 3.430.2.7 Hospit a .3.722735 l .8 2021-03-31 2021-03-31 Orders Carol Ann, 1.2.840.1 [id number] 21 [id number] Methodi 00:00:00 00:00:00 Only Sarai Lieberman 02184.1.1 979 s t 3.430.2.7 Hospit a .3.257259 l .8 2021-03-30 2021-03-30 [facility] [id number] Univers 08:45:00 08:45:00 GADIEL ity o f [facility] 2021-03-24 2021-03-24 Telephone Jailyn, 1.2.840.0 [id number] 21 [id number] Methodi 00:00:00 00:00:[address] 3.430.2.7 Hospit a .3.889781 l .8 2021-02-13 2021-02-13 Telephone Ronald, 1.2.840.3 [id number] [id number] Univers 00:00:00 00:00:00 [place] 07715.1.1 ity of 3.104.2.7 [place] .3.535988 Medica l .8 [place] 2021-01-28 2021-01-28 Outpatient [facility] [id number] Univers 08:45:00 09:37:00 NIKOLAI familia [facility] 2021-01-28 2021-01-28 Travel 1.2.840.1 1.2.257.934 [id number] Univers 00:00:00 00:00:00 07125.1.1 350.1.13.10 ity of 3.104.2.7 4.2.7.3.698 [place] .3.951681 084.8 Medica l .8 [place] 2021-01-19 2021-01-19 Telephone Prabhu, 1.2.840.1 [id number] [id number] Methodi 00:00:00 00:00:[address] 3.430.2.7 Hospit a .3.037796 l .8 2021-01-04 2021-01-04 Letter Shelia, 1.2.840.5 [id number] 696 Univers 00:00:00 00:00:00 (Out) Dagoberto Peterson 88830.1.1 ity of 3.104.2.7 [place] .3.242289 Medica l .8 [place] 2021-01-04 2021-01-04 Dmitry Bass, 1.2.840.6 [id number] 696 Univers 00:00:00 00:00:00 (Out) Dagoberto H 83609.1.1 ity of 3.104.2.7 [place] .3.393631 Medica l .8 Branch 2021-01-03 2021-01-03 Dmitry Bass, 1.2.840.8 [id number] 790 Univers 00:00:00 00:00:00 (Out) Dagoberto H 33236.1.1 ity of 3.104.2.7 [place] .3.776109 Medica l .8 [place] 2021-01-03 2021-01-03 Dmitry Bass, 1.2.840.6 [id number] 97573 790 Univers 00:00:00 00:00:00 (Out) Dagoberto H 50868.1.1 ity of 3.104.2.7 [place] .3.644886 Medica l .8 [place] 2021-01-02 2021-01-02 Outpatient R [facility] [id number] Univers 13:40:00 13:40:00 ity of [facility] 2021-01-02 2021-01-02 Laboratory Traygrace[place]bert[place] 1.2.840.8 [id number] [id number] Univers 12:14:13 12:57:34 Only Lab, [facility] [place] [address].1.1 ity of 3.104.2.7 [place] .3.563256 Medica l .8 [place] 2021-01-02 2021-01-02 Laboratory Traygraceelbert Garciashola 1.2.840.1 [id number] [id number] Univers 12:14:13 12:57:34 Only Lab, [facility] Fam [place] I 70461.1.1 ity of 3.104.2.7 [place] .3.812132 Medica l .8 [place] 2021-01-02 2021-01-02 Travel 1.2.840.1 1.2.294.357 5069 2306 Univers 00:00:00 00:00:00 75012.1.1 350.1.13.10 ity of 3.104.2.7 [place].3.698 [place] .3.396474 084.8 Medica l .8 Branch 2021-01-02 2021-01-02 Letter Doctor 1.2.840.9 [id number] 948 Univers 00:00:00 00:00:00 (Out) Unassigned, 10623.1.1 ity of [place] 3.104.2.7 [place] .3.165711 Medica l .8 Branch 2021-01-02 2021-01-02 Letter Doctor 1.2.840.2 [id number] 08724 946 Univers 00:00:00 00:00:00 (Out) Unassigned, 55906.1.1 ity of [place] 3.104.2.7 [place] .3.337471 Medica l .8 Branch 2021-01-02 2021-01-02 Travel 1.2.840.1 1.2.069.858 3393 2306 Univers 00:00:00 00:00:00 95339.1.1 350.1.13.10 ity of 3.104.2.7 4[place].3.698 [place] .3.954423 084.8 Medica l .8 [place] 2021-01-02 2021-01-02 Letter Doctor 1.2.840.6 [id number] 948 Univers 00:00:00 00:00:00 (Out) Unassigned, 55730.1.1 ity of [place] 3.104.2.7 [place] .3.358172 Medica l .8 [place] 2021-01-02 2021-01-02 Letter Doctor 1.2.840.0 [id number] 11468 946 Univers 00:00:00 00:00:00 (Out) Unassigned, 08742.1.1 ity of [place] 3.104.2.7 [place] .3.168177 Medica l .8 Branch 2020-12-22 2020-12-22 Telephone Devin, 1.2.840.1 [id number] 862 [id number] Univers 00:00:00 00:00:00 Robbi Hairston 45726.1.1 i ty of 3.104.2.7 [place] .3.249730 Medica l .8 Branch 2020-12-22 2020-12-22 Telephone Devin, 1.2.840.8 [id number] Univers 00:00:00 00:00:00 Robbi R 66250.1.1 i ty of 3.104.2.7 [place] .3.689607 Medica l .8 [place] 2020-12-12 2020-12-12 Office Hematpour, UTP 6400 1.2.840.114 12 [id number] [place] 07:42:02 08:18:[address] 350.1.13.58 Health 9.2.7.2.686 [id number] 2020-12-12 2020-12-12 Office Hematpour, UTP 6400 1.2.840.114 12 [id number] 07:42:02 08:18:50 [facility] [address] 350.1.13.58 9.2.7.2.686 [id number] 1 2020-12-09 2020-12-09 Telephone [facility], 1.2.840.1 [id number] Methodi 00:00:00 00:00:00 Sarai M. 18992.1.1 316 s t 3.430.2.7 Hospit a .3.978671 l .8 2020-12-08 2020-12-08 [facility], 1.2.840.1 [id number] 2100 [id number] Methodi 12:35:54 23:59:00 Encounter Ray 95996.1.[address] 3.430.2.7 Hospit a .3.759767 l .8 2020-12-08 2020-12-08 [facility], 1.2.840.1 [id number] 04214 43436 Methodi 17:25:00 17:30:[address] 3.430.2.7 Hospit a .3.814248 l .8 2020-12-08 2020-12-08 Office [facility], 1.2.840.1 [id number] 94822 19454 Methodi 10:30:00 11:39:56 Visit Ray 88852.1.[address] 3.430.2.7 Hospit a .3.983161 l .8 2020-12-08 2020-12-08 Travel 1.2.840.1 1.2.600.129 4151 694930 Methodi 00:00:00 00:00:[address] 3.430.2.7 0.2.7.3.698 Ho spita .3.391737 084.8 l .8 2020-12-02 2020-12-02 Supervisor In Charge Santiago Cardenas 1.2.840.1 [id number] Univers 10:20:06 10:36:19 Visit [facility] 40507.1.1 ity of 3.104.2.7 [place] .3.182489 Medica l .8 [place] 2020-12-02 2020-12-02 Supervisor In Charge Santiago Cardenas 1.2.840.[id number] [facility] 10:20:06 10:36:19 Visit [facility] 39997.1.1 ity of 3.104.2.7 [place] .3.971346 Medica l .8 [place] 2020-12-02 2020-12-02 Supervisor In Charge [facility] UNIVERSIT 1.2.840.114 8 [id number] 10:20:06 10:36:19 Visit HEALTH 350.1.13.10 CLINICS 4.2.7.2.686 [id number] 316 2020-12-02 2020-12-02 Office Ronald 1.2.840.[id number] [facility] 08:31:37 09:01:37 Visit Santiago 85712.1.1 ity of 3.104.2.7 [place] .3.295014 Medica l .8 [place] 2020-12-02 2020-12-02 Outpatient R RONALD [facility] [id number] Univers 09:00:00 09:00:00 SANTIAGO ity of [facility] 2020-11-25 2020-11-25 Office Devin, 1.2.840.9 [id number] 865 Univers 11:06:30 11:58:14 Visit Robbi Hairston 88264.1.1 i ty of 3.104.2.7 [place] .3.106164 Medica l .8 [place] 2020-11-25 2020-11-25 Office Devin, 1.2.840.0 [id number] 74001 865 Univers 11:06:30 11:58:14 Visit Robbi Hairston 99822.1.1 i ty of 3.104.2.7 [place] .3.328108 Medica l .8 [place] 2020-11-25 2020-11-25 [facility] 1.2.840.114 [id number] 65 11:06:30 11:58:14 Visit Robbi Hairston [employer] 350.1.13.10 REGIONAL 4.2.7.2.686 MATERNAL [id number] & CHILD [address] [place] [address] 2020-11-25 2020-11-25 Outpatient R [facility] [id number] Univers 11:00:00 11:00:00 ity of [facility] 2020-11-25 2020-11-25 Telephone Devin, 1.2.840.6 [id number] 855 [id number] Univers 00:00:00 00:00:00 Robbi Hairston 81752.1.1 i ty of 3.104.2.7 [place] .3.091695 Medica l .8 [place] 2020-11-25 2020-11-25 Refill [place], 1.2.840.3 [id number] 592 Univers 00:00:00 00:00:00 Santiago 44975.1.1 ity of 3.104.2.7 [place] .3.606896 Medica l .8 [place] 2020-11-25 2020-11-25 Travel 1.2.840.1 1.2.453.790 6228 0247 Univers 00:00:00 00:00:00 77990.1.1 350.1.13.10 ity of 3.104.2.7 4.2.7.3.698 [place] .3.[place]17545 084.8 Medica l .8 [place] 2020-11-25 2020-11-25 Orders Doctor 1.2.840.8 [id number] 064 Univers 00:00:00 00:00:00 Only Unassigned, 58079.1.1 ity of [place] 3.104.2.7 [place] .3.415088 Medica l .8 Branch 2020-11-25 2020-11-25 Telephone Beltran, 1.2.840.9 [id number] 855 60823 Univers 00:00:00 00:00:00 Robbi Hairston 12643.1.1 i ty of 3.104.2.7 [place] .3.798451 Medica l .8 Branch 2020-11-25 2020-11-25 Refill [place], 1.2.840.7 [id number] 20147 592 Univers 00:00:00 00:00:00 Santiago 14244.1.1 ity of 3.104.2.7 [place] .3.896559 Medica l .8 Branch 2020-11-25 2020-11-25 Travel 1.2.840.1 1.2.753.090 1199 0247 Univers 00:00:00 00:00:00 36405.1.1 350.1.13.10 ity of 3.104.2.7 4.2.7.3.698 [place] .3.325140 084.8 Medica l .8 Branch 2020-11-25 2020-11-25 Orders Doctor 1.2.840.0 [id number] 064 Univers 00:00:00 00:00:00 Only Unassigned, 18657.1.1 ity of [place] 3.104.2.7 [place] .3.803074 Medica l .8 Branch 2020-11-25 2020-11-25 Refill [facility] 1.2.044.047 4526 4592 00:00:00 00:00:00 [facility] 350.1.13.10 CLINICS 4.2.7.2.686 385.3476355 089 2020-11-25 2020-11-25 Telephone [facility] 1.2.472.972 6972 0821 00:00:00 00:00:00 Robbi Hairsotn [employer] 350.1.13.10 [facility] 4.2.7.2.686 MATERNAL [id number] & CHILD [address] [place] [address] 2020-11-14 2020-11-14 Abstract Clark, 1.2.840.1 [id number] 70704 84326 Methodi 00:00:00 00:00:[address] 3.430.2.7 Hospit a .3.768781 l .8 2020-11-14 2020-11-14 Telephone Clark, 1.2.840.1 [id number] 2100 263308 Methodi 00:00:00 00:00:[address] 3.430.2.7 Hospit a .3.037463 l .8 2020-11-12 2020-11-12 Outpatient R [facility] [id number] Univers 08:30:00 08:30:00 SANTIAGO barbosa [facility] 2020-11-07 2020-11-07 Telephone Agustina Ortiz UTP 6400 1.2.840.11 4 [id number] [place] 00:00:00 00:00:[address] 350.1.13.58 Health 9.2.7.2.686 [id number] 1 2020-11-07 2020-11-07 Telephone Diana UTP 6400 1.2.840.114 124 [id number] 00:00:00 00:00:[address] 350.1.13.58 9.2.7.2.686 [id number] 1 2020-10-31 2020-10-31 Office Hematpour, UTP 6400 1.2.840.114 12 [id number] [place] 07:54:00 09:45:[address] 350.1.13.58 Health 9.2.7.2.686 [id number] 1 2020-10-30 2020-10-30 Abstract Rody Maguire UTP 6400 1.2.840.1 14 [id number] [place] 00:00:00 00:00:[address] 350.1.13.58 Health 9.2.7.2.686 [id number] 1 2020-10-29 2020-10-29 Refill [place], 1.2.840.6 [id number] 400 Univers 00:00:00 00:00:00 Santiago 73601.1.1 ity of 3.104.2.7 [place] .3.152562 Medica l .8 Branch 2020-10-29 2020-10-29 Refill [place], 1.2.840.5 [id number] 26062 400 Univers 00:00:00 00:00:00 Santiago 98886.1.1 ity of 3.104.2.7 [place] .3.638896 Medica l .8 Branch 2020-10-27 2020-10-27 Telephone Jailyn, 1.2.840.5 [id number] 21 [id number] Methodi 00:00:00 00:00:[address] 3.430.2.7 Hospit a .3.672561 l .8 2020-10-24 2020-10-24 Telephone Clark, 1.2.840.1 [id number] 2100 166793 Methodi 00:00:00 00:00:[address] 3.430.2.7 Hospit a .3.327644 l .8 2020-10-22 2020-10-22 Outpatient R RODO, [facility] [id number] Univers 13:00:00 13:00:00 GADIEL barbosa o f [place] [facility] 2020-10-22 2020-10-22 Travel 1.2.840.1 1.2.436.617 7547 3839 Univers 00:00:00 00:00:00 44585.1.1 350.1.13.10 ity of 3.104.2.7 4.2.7.3.698 [place] .3.734273 084.8 Medica l .8 Branch 2020-10-22 2020-10-22 Travel 1.2.840.1 1.2.022.464 3823 3839 Univers 00:00:00 00:00:00 06108.1.1 350.1.13.10 ity of 3.104.2.7 4.2.7.3.698 [place] .3.292532 084.8 Medica l 8 [place] 2020-10-13 2020-10-13 Outpatient R RODO, [facility] [id number] Univers 08:45:00 08:45:00 GADIEL maciely o f [facility] 2020-10-06 2020-10-12 Telemedici [facility], 1.2.840.1 [id number] Methodi 15:30:00 00:08:46 ne Ray 16493.1.[address] 3.430.2.7 Hospit a .3.025232 l .8 2020-09-30 2020-09-30 [facility], 1.2.840.4 [id number] Methodi 00:00:00 00:00:[address] 3.430.2.7 Hospit a .3.115671 l .8 2020-09-21 2020-09-21 [facility] 1.2.840.1 1.2.944.466 3346 399383 Methodi 00:00:00 00:00:[address] 3.430.2.7 0.2.7.3.698 Ho spita .3.363005 084.8 l .8 2020-09-06 2020-09-06 [facility] 1.2.840.1 [id number] 69804 43653 Methodi 17:42:30 23:59:[address] 3.430.2.7 Hospit a .3.583651 l .8 2020-09-06 2020-09-06 [facility], 1.2.840.1 [id number] 2100 [id number] Methodi 16:50:00 17:41:00 Encounter Ray 00808.1.[address] 3.430.2.7 Hospit a .3.435079 l .8 2020-09-05 2020-09-05 Hospital [facility], 1.2.840.1 [id number] 2099 [id number] Methodi 09:17:00 19:45:00 Encounter Ray [address]19.1.[address] 3.430.2.7 Hospit a .3.159767 l .8 2020-09-05 2020-09-05 Surgery [facility], 1.2.840.1 [id number] 81479 12511 Methodi 11:30:00 13:15:[address] 3.430.2.7 Hospit a .3.128988 l .8 2020-09-05 2020-09-05 Anesthesia [facility], 1.2.840.1 [id number] 084 [id number] Methodi 11:27:00 12:20:00 Event Johnathanthi 26700.1.1 243 s t V. 3.430.2.7 Hospit a .3.028649 l .8 2020-09-05 2020-09-05 Travel 1.2.840.1 1.2.899.489 4068 [id number] Methodi 00:00:00 00:00:[address] 3.430.2.7 0.2.7.3.698 Ho spita .3.280697 084.8 l .8 2020-09-04 2020-09-04 Telephone Carol Ann, 1.2.840.1 [id number] Methodi 00:00:00 00:00:00 Sarai Corbin. 45512.1.1 762 s t 3.430.2.7 Hospit a .3.084862 l .8 2020-09-02 2020-09-02 Telephone Meisenlion, 1.2.840.7 [id number] Methodi 00:00:00 00:00:00 Sarai M. 06888.1.1 344 s t 3.430.2.7 Hospit a .3.943637 l .8 2020-08-29 2020-08-[id number] Memoria 10:20:00 14:10:00 Outpatient r [facility] [address] [facility] 2020-08-29 2020-08-30 Outpatient HEMATPOUR, [facility] CAR 7500 [facility] 05:20:00 09:10:00 BEVERLY 2020-08-06 2020-08-06 Office [place], 1.2.840.2 [id number] Univers 08:03:23 09:17:49 Visit Santiago 18368.1.1 ity of 3.104.2.7 [place] .3.799782 Medica l .8 [place] 2020-08-06 2020-08-06 Outpatient R EAST, [facility] [id number] Univers 08:30:00 08:30:00 SANTIAGO barbosa of [facility] 2020-07-14 2020-07-14 Outpatient R SELF, [facility] [id number] Univers 09:30:00 09:30:00 GADIEL rodas [facility] 2020-07-14 2020-07-14 Travel 1.2.840.1 1.2.758.537 1223 2575 Univers 00:00:00 00:00:00 64212.1.1 350.1.13.10 ity of 3.104.2.7 4.2.7.3.698 [place] .3.905327 084.8 Medica l .8 [place] 2020-07-14 2020-07-14 Orders Doctor 1.2.840.8 [id number] 309 Univers 00:00:00 00:00:00 Only Unassigned, 14812.1.1 ity of [place] 3.104.2.7 [place] .3.376360 Medica l .8 [place] 2020-06-16 2020-06-16 Outpatient R SELF, [facility] [id number] Univers 08:00:00 08:00:00 GADIEL rodas [facility] 2020-06-06 2020-06-06 Telephone [place], 1.2.840.3 [id number] [id number] Univers 00:00:00 00:00:00 Santiago 21105.1.1 ity of 3.104.2.7 [place] .3.282976 Medica l .8 [place] 2020-06-04 2020-06-04 Supervisor In Charge Santiago Cardenas 1.2.840.1 [id number] Univers 09:31:58 09:40:12 Visit [facility] 29459.1.1 ity of 3.104.2.7 [place] .3.552238 Medica l .8 [place] 2020-06-04 2020-06-04 Office JOSÉ ANTONIO Cardenas 1.2.034.396 6741 9729 Univers 08:13:41 09:28:25 Visit Santiago [facility] 350.1.13.10 i ty of CLINICS 4.2.7.2.686 [place] 500.6291870 [facility] 089 [place] 2020-06-04 2020-06-04 Outpatient R [facility] [id number] Univers 08:30:00 08:30:00 SANTIAGO ity of [place] [facility] 2020-06-04 2020-06-04 Orders Doctor 1.2.840.7 [id number] 079 Univers 00:00:00 00:00:00 Only Unassigned, 55380.1.1 ity of [place] 3.104.2.7 [place] .3.055936 Medica l .8 [place] 2020-05-19 2020-05-19 Telephone [facility], 1.2.840.0 [id number] 804 [id number] Univers 00:00:00 00:00:00 Santiago 47351.1.1 ity of 3.104.2.7 [place] .3.344569 Medica l .8 [place] 2020-04-24 2020-04-24 Telephone [place], 1.2.840.7 [id number] 799 [id number] Univers 00:00:00 00:00:00 Santiago 10221.1.1 ity of 3.104.2.7 [place] .3.550425 Medica l .8 [place] 2020-04-14 2020-04-14 Outpatient R [facility] [id number] Univers 09:00:00 09:00:00 SANTIAGO ity of [facility] 2020-04-14 2020-04-14 Telephone [facility], 1.2.840.9 [id number] 797 [id number] Univers 00:00:00 00:00:00 Santiago 57847.1.1 ity of 3.104.2.7 [place] .3.206009 Medica l .8 Branch 2020-03-31 2020-03-31 Outpatient R EAST, [facility] [id number] Univers 08:30:00 08:30:00 SANTIAGO ity of [place] [facility] 2020-03-03 2020-03-03 Outpatient R SELF, [facility] [id number] Univers 08:00:00 08:00:00 GADIEL barbosa o f [facility] 2020-03-03 2020-03-03 Outpatient R SELF, [facility] [id number] Univers 08:00:00 08:00:00 GADIEL barbosa o f [facility] 2020-03-03 2020-03-03 Travel 1.2.840.1 1.2.446.001 5760 5480 Univers 00:00:00 00:00:00 37266.1.1 350.1.13.10 ity of 3.104.2.7 4.2.7.3.698 [place] .3.221945 084.8 Medica l .8 [place] 2020-02-06 2020-02-06 Telephone [place], 1.2.840.9 [id number] 781 [id number] Univers 00:00:00 00:00:00 Santiago 88395.1.1 ity of 3.104.2.7 [place] .3.433114 Medica l .8 [place] 2020-01-26 2020-01-26 Emergency Caridad, 1.2.840.8 [id number] 779 [id number] Univers 10:03:00 13:05:00 Cynise 95200.1.1 ity of 3.104.2.7 [place] .3.771974 Medica l .8 Branch 2020-01-26 2020-01-26 Travel 1.2.840.1 1.2.696.837 7282 0120 Univers 00:00:00 00:00:00 05338.1.1 350.1.13.10 ity of 3.104.2.7 4.2.7.3.698 [place] .3.542235 084.8 Medica l .8 [place] 2020-01-25 2020-01-25 Outpatient R EAST, [facility] [id number] Univers 08:30:00 08:30:00 SANTIAGO ity of [facility] 2020-01-25 2020-01-25 Telemedici [place], 1.2.840.5 [id number] Univers 07:36:49 08:06:49 ne Visit Santiago 00014.1.1 ity of 3.104.2.7 [place] .3.058443 Medica l .8 [place] 2020-01-16 2020-01-16 Outpatient R EAST, [facility] [id number] Univers 08:00:00 08:00:00 SANTIAGO ity [facility] 2020-01-16 2020-01-16 Telephone [place], 1.2.840.9 [id number] Univers 00:00:00 00:00:00 Santiago 45561.1.1 ity of 3.104.2.7 [place] .3.398153 Medica l .8 [place] 2020-01-14 2020-01-14 Outpatient R SELF, [facility] [id number] Univers 08:00:00 08:00:00 GADIEL ity o f [facility] 2019-12-31 2019-12-31 Outpatient R SELF, [facility] [id number] Univers 08:45:00 08:45:00 GADIEL ity o f [facility] 2019-10-17 2019-10-17 Outpatient R EAST, [facility] [id number] Univers 08:30:00 08:30:00 SANTIAGO ity [facility] 2019-10-12 2019-10-12 Outpatient R EAST, [facility] [id number] Univers 13:00:00 13:00:00 SANTIAGO ity [facility] 2019-10-12 2019-10-12 Telemedici [place], 1.2.840.5 [id number] Univers 07:38:30 08:08:30 ne Visit Santiago 15984.1.1 ity of 3.104.2.7 [place] .3.549599 Medica l .8 [place] 2019-10-08 2019-10-08 Outpatient R SELF, [facility] [id number] Univers 10:15:00 10:15:00 GADIEL ity o f [facility] 2019-10-03 2019-10-03 Case Xiao, 1.2.840.4 [id number] Univers 00:00:00 00:00:00 Management Michael Corbin 93478.1.1 i ty of 3.104.2.7 [place] .3.598240 Medica l .8 [place] 2019-09-27 2019-09-27 Telephone [place], 1.2.840.3 [id number] 755 [id number] Univers 00:00:00 00:00:00 Santiago 56425.1.1 ity of 3.104.2.7 [place] .3.867398 Medica l .8 [place] 2019-09-04 2019-09-04 Refill [place], 1.2.840.7 [id number] Univers 00:00:00 00:00:00 Santiago 16360.1.1 ity of 3.104.2.7 [place] .3.592169 Medica l .8 [place] 2019-07-24 2019-07-24 Outpatient R [facility] [id number] Univers 08:30:00 08:30:00 SANTIAGO ity [facility] 2019-07-17 2019-07-17 Outpatient R [facility] [id number] Univers 10:00:00 10:00:00 SANTIAGO ity [facility] 2019-06-15 2019-06-15 Telephone East, 1.2.840.2 [id number] [id number] Univers 00:00:00 00:00:00 Santiago 49644.1.1 ity of 3.104.2.7 [place] .3.607760 Medica l .8 [place] 2019-06-13 2019-06-13 Telephone Team, [facility] 1.2.840.8 [id number] Univers 00:00:00 00:00:00 Health 45960.1.1 ity of [place] 3.104.2.7 [place] .3.480696 Medica l .8 [place] 2019-05-10 2019-05-10 Refill [place], 1.2.840.5 [id number] 022 Univers 00:00:00 00:00:00 Santiago 62851.1.1 ity of 3.104.2.7 [place] .3.398377 Medica l .8 [place] 2019-05-09 2019-05-09 Refill Ronald, 1.2.840.6 [id number] Univers 00:00:00 00:00:00 Santiago 80063.1.1 ity of 3.104.2.7 [place] .3.398202 Medica l .8 [place] 2019-04-30 2019-04-30 Outpatient R RODO, [facility] [id number] Univers 10:15:00 10:33:05 GADIEL ity o f [facility] 2019-04-18 2019-04-18 Supervisor In Charge Santiago Cardenas 1.2.840.1 [id number] Univers 10:00:39 10:44:31 Visit [facility] 76808.1.1 ity of 3.104.2.7 [place] .3.716582 Medica l .8 [place] 2019-04-18 2019-04-18 Outpatient R RONALD [facility] [id number] Univers 10:00:00 10:44:31 SANTIAGO ity of [facility] 2019-04-18 2019-04-18 Office Ronald, 1.2.840.0 [id number] 005 Univers 08:27:44 09:53:27 Visit Santiago 05684.1.1 ity of 3.104.2.7 [place] .3.417568 Medica l .8 [place] 2019-04-18 2019-04-18 Orders Doctor 1.2.840.5 [id number] Univers 00:00:00 00:00:00 Only Unassigned, 56383.1.1 ity of [place] 3.104.2.7 [place] .3.483008 Medica l .8 [place] 2019-04-11 2019-04-11 Refill Ronald, 1.2.840.7 [id number] 033 Univers 00:00:00 00:00:00 Santiago 14982.1.1 ity of 3.104.2.7 [place] .3.120612 Medica l .8 [place] 2019-04-09 2019-04-09 Refill [place], 1.2.840.2 [id number] Univers 00:00:00 00:00:00 Santiago 90557.1.1 ity of 3.104.2.7 [place] .3.218957 Medica l .8 [place] 2019-04-03 2019-04-03 Telephone Team, [facility] 1.2.840.7 [id number] Univers 00:00:00 00:00:00 Health 31302.1.1 ity of [place] 3.104.2.7 [place] .3.160199 Medica l .8 [place] 2019-03-27 2019-03-27 Telephone Self, 1.2.840.2 [id number] 723 [id number] Univers 00:00:00 00:00:00 Gadiel 47129.1.1 ity of 3.104.2.7 [place] .3.795852 Medica l .8 [place] 2019-01-17 2019-01-17 Office Ronald, 1.2.840.0 [id number] Univers 07:37:21 10:32:51 Visit Santiago 71783.1.1 ity of 3.104.2.7 [place] .3.456561 Medica l .8 [place] 2019-01-04 2019-01-12 Office Eveline Hansen 1.2.840.6 [id number] Univers 11:19:32 11:08:05 Visit Mariela 88789.1.1 ity of 3.104.2.7 [place] .3.772544 Medica l .8 [place] 2019-01-10 2019-01-10 Telephone Stanislav, 1.2.840.0 [id number] 709 [id number] Univers 00:00:00 00:00:00 Eladio Inman 08133.1.1 ity of 3.104.2.7 [place] .3.065801 Medica l .8 [place] 2018-12-18 2018-12-18 Office Geraldine, 1.2.840.5 [id number] Univers 08:48:45 09:13:43 Visit Leyda 40399.1.1 it y of 3.104.2.7 [place] .3.317811 Medica l .8 [place] 2018-10-30 2018-10-30 Telephone East, 1.2.840.8 [id number] [id number] Univers 00:00:00 00:00:00 Santiago 51286.1.1 ity of 3.104.2.7 [place] .3.461016 Medica l .8 [place] 2018-10-23 2018-10-23 Orders Doctor 1.2.840.6 [id number] Univers 00:00:00 00:00:00 Only Unassigned, 34989.1.1 ity of [place] 3.104.2.7 [place] .3.376651 Medica l .8 [place] 2018-10-23 2018-10-23 Nurse Selvin, 1.2.840.6 [id number] Univers 00:00:00 00:00:00 Triage Stefanie 39947.1.1 ity of 3.104.2.7 [place] .3.717123 [facility] .[facility] [place] 2018-10-23 2018-10-23 Telephone Self, 1.2.840.8 [id number] [facility] 00:00:00 00:00:00 Gadiel 18251.1.1 ity of 3.104.2.7 [place] .3.409377 [facility] .[facility] [place] 2018-10-20 2018-10-20 Telephone Self, 1.2.840.7 [id number] [facility] 00:00:00 00:00:00 Gadiel 47343.1.1 ity of 3.104.2.7 [place] .3.271912 [facility] .[facility] [place] Results Test Description Test Time Test Comments Results Result Comments Source COMP. METABOLIC PANEL (60533) 2022-05-06 22:42:55 Test Item Value Reference Range Interpretation Comme nts NA (test code = 9722436876) 137 mmol/L 135-145 K (test code = 8626716569) 3.2 mmol/L 3.5-5.0 L CL (test code = 4233690125) 100 mmol/L 98-108 CO2 TOTAL (test code = 2010521441) 23 mmol/L 23-31 AGAP (test code = 0086471599) 2-16 BUN (test code = 7928183440) 41 mg/dL 7-23 H GLUCOSE (test code = 7586371923) 98 mg/dL 70-110 CREATININE (test code = 1.55 mg/dL 0.50-1.04 H 6845677089) TOTAL BILI (test code = 0.8 mg/dL 0.1-1.4 5927960788) CALCIUM (test code = 7193509021) 8.3 mg/dL 8.6-10.6 L T PROTEIN (test code = 2502357236) 6.9 g/dL 6.3-8.2 ALBUMIN (test code = 3654785259) 3.9 g/dL 3.5-5.0 ALK PHOS (test code = 2891028982) 89 U/L 34-122 ALTv (test code = 1742-6) 101 U/L 5-35 H AST(SGOT) (test code = 4543209875) 203 U/L 13-40 H eGFR (test code = 6518262509) mL/min/1.73m2 KYLE (test code = KYLE) Association [...] tests). Lab Interpretation (test code = Abnormal 42804-2) [facility] WITH [id number] 22:33:52 Test Item Value Reference Range Interpretation Comments WBC (test code = See_Comment L [Automated 6690-2) message] The sy stem which generated this result transmitted reference range : 4.30 - 11.10 10*3/?L. The reference range was not used to interpret this result as normal/abnormal . RBC (test code = See_Comment [Automated 789-8) message] The sy stem which [...] RDW-SD (test code = 46.3 fL 39.0-49.9 28009-2) RDW-CV (test code = 13.5 % 12.0-15.5 788-0) PLT (test code = See_Comment L [Automated 777-3) message] The sy stem which generated this result transmitted reference range : 166 - 358 10*3/ ?L. The reference r abbey was not used to interpret this result as normal/abnormal . MPV (test code = 9.5 fL 9.5-12.9 45343-0) NRBC/100 WBC (test See_Comment [Automat ed code = 1199338480) message] The system which generated this result transmitted reference range : 0.0 - 10.0 /100 WBCs. The refer ence range was not u sed to interpret th is result as normal/abnormal . NRBC x10^3 (test code See_Comment [Auto mated = 0279468216) message] The s ystem which generated this result transmitted reference range : 10*3/?L. The reference range was not used to interpret this result as normal/abnormal . GRAN MAT (NEUT) % 58.3 % (test code = 770-8) IMM GRAN % (test code 0.80 % = 4762438209) LYMPH % (test code = 28.1 % 736-9) MONO % (test code = 12.0 % 5905-5) EOS % (test code = 0.5 % 713-8) BASO % (test code = 0.3 % 706-2) GRAN MAT x10^3(ANC) 2.29 10*3/uL 1.88-7.09 (test code = 5329532262) IMM GRAN x10^3 (test 0.03 10*3/uL 0.00-0.06 code = 0736231845) LYMPH x10^3 (test code 1.10 10*3/uL 1.32-3.29 L = 731-0) MONO x10^3 (test code 0.47 10*3/uL 0.33-0.92 = 742-7) EOS x10^3 (test code = 0.03-0.39 L 711-2) BASO x10^3 (test code 0.01-0.07 = 704-7) Lab Interpretation Abnormal (test code = 39515-9) [facility] METABOLIC PANEL (NA, K, CL, CO2, GLUCOSE, BUN, CREATININE, CA)2022-04-22 21:43:42 Test Item Value Reference Range Interpretation Comments NA (test code = 142 mmol/L 135-145 3438370915) K (test code = 3.5 mmol/L 3.5-5.0 2191134585) CL (test code = 106 mmol/L 98-108 5366270797) CO2 TOTAL (test code = 26 mmol/L 23-31 7598293764) AGAP (test code = 2-16 0369696664) BUN (test code = 29 mg/dL 7-23 H 0750072594) GLUCOSE (test code = 84 mg/dL 70-110 5601057697) CREATININE (test code = 1.16 mg/dL 0.50-1.04 H 4062840071) CALCIUM (test code = 8.2 mg/dL 8.6-10.6 L 4426393602) eGFR (test code = mL/min/1.73m2 5478953148) KYLE (test code = KYLE) Association of [...] tests). Lab Interpretation Abnormal (test code = 39928-9) [facility] WITH [id number] 21:33:01 Test Item Value Reference Range Interpretation Comments WBC (test code = See_Comment [Automated 1524-2) message] The sy stem which generated this result transmitted reference range : 4.30 - 11.10 10*3/?L. The reference range was not used to interpret this result as normal/abnormal . RBC (test code = See_Comment L [Automated 849-8) message] The sy stem which generated this [...] (test code = 50.7 fL 39.0-49.9 H 87493-2) RDW-CV (test code = 14.6 % 12.0-15.5 788-0) PLT (test code = See_Comment L [Automated 777-3) message] The sy stem which generated this result transmitted reference range : 166 - 358 10*3/ ?L. The reference r abbey was not used to interpret this result as normal/abnormal . MPV (test code = 8.8 fL 9.5-12.9 L 67866-3) NRBC/100 WBC (test See_Comment [Automat ed code = 8762890611) message] The system which generated this result transmitted reference range : 0.0 - 10.0 /100 WBCs. The refer ence range was not u sed to interpret th is result as normal/abnormal . NRBC x10^3 (test code See_Comment [Auto mated = 8545372534) message] The s ystem which generated this result transmitted reference range : 10*3/?L. The reference range was not used to interpret this result as normal/abnormal . GRAN MAT (NEUT) % 70.9 % (test code = 770-8) IMM GRAN % (test code 0.50 % = 5139339821) LYMPH % (test code = 17.4 % 736-9) MONO % (test code = 9.0 % 5905-5) EOS % (test code = 1.7 % 713-8) BASO % (test code = 0.5 % 706-2) GRAN MAT x10^3(ANC) 4.60 10*3/uL 1.88-7.09 (test code = 3375354247) IMM GRAN x10^3 (test 0.03 10*3/uL 0.00-0.06 code = 5036234832) LYMPH x10^3 (test code 1.13 10*3/uL 1.32-3.29 L = 731-0) MONO x10^3 (test code 0.58 10*3/uL 0.33-0.92 = 742-7) EOS x10^3 (test code = 0.11 10*3/uL 0.03-0.39 711-2) BASO x10^3 (test code 0.03 10*3/uL 0.01-0.07 = 704-7) Lab Interpretation Abnormal (test code = 42162-8) [facility] CULTURE [id number] 06:01:07 Test Item Value Reference Range Interpretation Comments Blood Culture-Aerobic No organisms No growth Previo us (test code = 95648-8) isolated prelim inary verified result was Culture [...] Culture-Anaerobic isolated preliminar y (test code = 74812-7) verifi ed result was Culture In Progress [...] CDT Lab Interpretation Normal (test code = 10624-8) [facility] CULTURE [id number] 06:01:07 Test Item Value Reference Range Interpretation Comments Blood Culture-Aerobic No organisms No growth Previo us (test code = 18450-2) isolated prelim inary verified result was Culture [...] Culture-Anaerobic isolated preliminar y (test code = 41035-8) verifi ed result was Culture In Progress [...] CDT Lab Interpretation Normal (test code = 13527-7) [facility] [id number] 06:01:07 Test Item Value Reference Range Interpretation Comments Blood Culture-Aerobic No organisms No growth Previo us (test code = 13494-8) isolated prelim inary verified result was Culture [...] Culture-Anaerobic isolated preliminar y (test code = 45517-7) verifi ed result was Culture In Progress [...] CDT Lab Interpretation Normal (test code = 02852-8) [facility] [id number] 10:49:10 Test Item Value Reference Range Interpretation Comments NT-proBNP (test code 2660 pg/mL See_Comment H [Autom ated = 4747099617) message] The system which generated this result transmitted reference range : <=125. The reference range was not used to interpret this result as normal/abnormal . KYLE (test code = KYLE) Biotin has been reported to cause a negative bias, interpret results relative to patient's use of biotin. Lab Interpretation Abnormal (test code = 04776-9) [facility] [id number] 10:49:10 Test Item Value Reference Range Interpretation Comments NT-proBNP (test code 2660 pg/mL See_Comment H [Autom ated = 9268465114) message] The system which generated this result transmitted reference range : <=125. The reference range was not used to interpret this result as normal/abnormal . KYLE (test code = KYLE) Biotin has been reported to cause a negative bias, interpret results relative to patient's use of biotin. Lab Interpretation Abnormal (test code = 71162-0) [facility] (NA, K, CL, CO2, GLUCOSE, BUN, CREATININE, CA)2022-02-15 10:44:07 Test Item Value Reference Range Interpretation Comments NA (test code = 134 mmol/L 135-145 L 6455876823) K (test code = 3.2 mmol/L 3.5-5 L 1748102344) CL (test code = 98 mmol/L 98-108 3219573110) CO2 TOTAL (test code = 27 mmol/L 23-31 2276561508) AGAP (test code = 2-16 4948321374) BUN (test code = 19 mg/dL 7-23 4904697273) GLUCOSE (test code = 102 mg/dL 70-110 0956512599) CREATININE (test code = 0.95 mg/dL 0.5-1.04 5375724483) CALCIUM (test code = 8.5 mg/dL 8.6-10.6 L 2754198645) eGFR (test code = mL/min/1.73m2 7956194836) KYLE (test code = KYLE) Association of [...] tests). Lab Interpretation Abnormal (test code = 42720-8) [facility]2022-09-26 10:44:07 Test Item Value Reference Range Interpretation Comments MAGNESIUM (test code = 5758705436) 1.8 mg/dL 1.7-2.4 Lab Interpretation (test code = Normal 77907-0) [facility]2022-09-26 10:44:07 Test Item Value Reference Range Interpretation Comments MAGNESIUM (test code = 4686658630) 1.8 mg/dL 1.7-2.4 Lab Interpretation (test code = Normal 93121-3) [facility] (NA, K, CL, CO2, GLUCOSE, BUN, CREATININE, CA)2022-02-15 10:44:07 Test Item Value Reference Range Interpretation Comments NA (test code = 134 mmol/L 135-145 L 3742800170) K (test code = 3.2 mmol/L 3.5-5.0 L 6666680225) CL (test code = 98 mmol/L 98-108 7296717460) CO2 TOTAL (test code = 27 mmol/L 23-31 5329062485) AGAP (test code = 2-16 8157861096) BUN (test code = 19 mg/dL 7-23 2561912244) GLUCOSE (test code = 102 mg/dL 70-110 0736617810) CREATININE (test code = 0.95 mg/dL 0.50-1.04 7751551471) CALCIUM (test code = 8.5 mg/dL 8.6-10.6 L 2175348233) eGFR (test code = mL/min/1.73m2 2892407666) KYLE (test code = KYLE) Association of [...] tests). Lab Interpretation Abnormal (test code = 31145-0) [facility] WITH [id number] 10:12:06 Test Item Value Reference Range Interpretation [...] RDW-SD (test code = 47.8 fL 39-49.9 33889-0) RDW-CV (test code = 15.2 % 12-15.5 788-0) PLT (test code = See_Comment L [Automated 777-3) message] The sy stem which generated this result transmitted reference range : 166 - 358 10*3/ ?L. The reference r abbey was not used to interpret this result as normal/abnormal . MPV (test code = 8.9 fL 9.5-12.9 L 54441-7) NRBC/100 WBC (test See_Comment [Automat ed code = 8716634383) message] The system which generated this result transmitted reference range : 0.0 - 10.0 /100 WBCs. The refer ence range was not u sed to interpret th is result as normal/abnormal . NRBC x10^3 (test code See_Comment [Auto mated = 6666590778) message] The s ystem which generated this result transmitted reference range : 10*3/?L. The reference range was not used to interpret this result as normal/abnormal . GRAN MAT (NEUT) % 65.9 % (test code = 770-8) IMM GRAN % (test code 0.30 % = 6733365138) LYMPH % (test code = 21.0 % 736-9) MONO % (test code = 10.1 % 5905-5) EOS % (test code = 2.4 % 713-8) BASO % (test code = 0.3 % 706-2) GRAN MAT x10^3(ANC) 2.49 10*3/uL 1.88-7.09 (test code = 9181757326) IMM GRAN x10^3 (test 0-0.06 code = 2406485092) LYMPH x10^3 (test code 0.79 10*3/uL 1.32-3.29 L = 731-0) MONO x10^3 (test code 0.38 10*3/uL 0.33-0.92 = 742-7) EOS x10^3 (test code = 0.09 10*3/uL 0.03-0.39 711-2) BASO x10^3 (test code 0.01-0.07 = 704-7) Lab Interpretation Abnormal (test code = 59630-9) [facility] WITH [id number] 10:12:06 Test Item Value Reference Range Interpretation [...] RDW-SD (test code = 47.8 fL 39.0-49.9 72185-9) RDW-CV (test code = 15.2 % 12.0-15.5 788-0) PLT (test code = See_Comment L [Automated 777-3) message] The sy stem which generated this result transmitted reference range : 166 - 358 10*3/ ?L. The reference r abbey was not used to interpret this result as normal/abnormal . MPV (test code = 8.9 fL 9.5-12.9 L 76108-9) NRBC/100 WBC (test See_Comment [Automat ed code = 4167442070) message] The system which generated this result transmitted reference range : 0.0 - 10.0 /100 WBCs. The refer ence range was not u sed to interpret th is result as normal/abnormal . NRBC x10^3 (test code See_Comment [Auto mated = 3597250694) message] The s ystem which generated this result transmitted reference range : 10*3/?L. The reference range was not used to interpret this result as normal/abnormal . GRAN MAT (NEUT) % 65.9 % (test code = 770-8) IMM GRAN % (test code 0.30 % = 6630840746) LYMPH % (test code = 21.0 % 736-9) MONO % (test code = 10.1 % 5905-5) EOS % (test code = 2.4 % 713-8) BASO % (test code = 0.3 % 706-2) GRAN MAT x10^3(ANC) 2.49 10*3/uL 1.88-7.09 (test code = 4255114845) IMM GRAN x10^3 (test 0.00-0.06 code = 9962534009) LYMPH x10^3 (test code 0.79 10*3/uL 1.32-3.29 L = 731-0) MONO x10^3 (test code 0.38 10*3/uL 0.33-0.92 = 742-7) EOS x10^3 (test code = 0.09 10*3/uL 0.03-0.39 711-2) BASO x10^3 (test code 0.01-0.07 = 704-7) Lab Interpretation Abnormal (test code = 07785-6) [facility] WITH [id number] 11:18:28 Test Item Value Reference Range Interpretation [...] RDW-SD (test code = 49.5 fL 39-49.9 76512-9) RDW-CV (test code = 15.5 % 12-15.5 788-0) PLT (test code = See_Comment L [Automated 777-3) message] The sy stem which generated this result transmitted reference range : 166 - 358 10*3/ ?L. The reference r abbey was not used to interpret this result as normal/abnormal . MPV (test code = 11.4 fL 9.5-12.9 15642-8) IPF % (test code = 8.7 % 1.3-7.7 H Platelet count 4581488588) measured by fluorescence method. NRBC/100 WBC (test See_Comment [Automat ed code = 6596477306) message] The system which generated this result transmitted reference range : 0.0 - 10.0 /100 WBCs. The refer ence range was not u sed to interpret th is result as normal/abnormal . NRBC x10^3 (test code See_Comment [Auto mated = 4580180215) message] The s ystem which generated this result transmitted reference range : 10*3/?L. The reference range was not used to interpret this result as normal/abnormal . GRAN MAT (NEUT) % 62.0 % (test code = 770-8) IMM GRAN % (test code 0.80 % = 3817603534) LYMPH % (test code = 22.2 % 736-9) MONO % (test code = 9.6 % 5905-5) EOS % (test code = 5.1 % 713-8) BASO % (test code = 0.3 % 706-2) GRAN MAT x10^3(ANC) 2.21 10*3/uL 1.88-7.09 (test code = 0393754496) IMM GRAN x10^3 (test 0.03 10*3/uL 0-0.06 code = 1922206943) LYMPH x10^3 (test code 0.79 10*3/uL 1.32-3.29 L = 731-0) MONO x10^3 (test code 0.34 10*3/uL 0.33-0.92 = 742-7) EOS x10^3 (test code = 0.18 10*3/uL 0.03-0.39 711-2) BASO x10^3 (test code 0.01-0.07 = 704-7) POLYCHROMASIA (test 2+ See_Comment [Automa arpit code = 22127-3) message] The system which generated this result [...] . Lab Interpretation Abnormal (test code = 36321-2) [facility] METABOLIC PANEL (NA, K, CL, CO2, GLUCOSE, BUN, CREATININE, CA)2022-02-13 10:39:07 Test Item Value Reference Range Interpretation Comments NA (test code = 136 mmol/L 135-145 7100322516) K (test code = 4.1 mmol/L 3.5-5 3495780766) CL (test code = 102 mmol/L 98-108 1201584884) CO2 TOTAL (test code = 27 mmol/L 23-31 6454318623) AGAP (test code = 2-16 0992678201) BUN (test code = 22 mg/dL 7-23 9766519827) GLUCOSE (test code = 94 mg/dL 70-110 6014752057) CREATININE (test code = 0.94 mg/dL 0.5-1.04 8589606423) CALCIUM (test code = 8.1 mg/dL 8.6-10.6 L 6423231595) eGFR (test code = mL/min/1.73m2 1000410576) KYLE (test code = KYLE) Association of [...] tests). Lab Interpretation Abnormal (test code = 54338-0) [facility]2022-02-12 01:50:10 Test Item Value Reference Range Interpretation Comments Height (test code = in 8954662778) Weight (test code = lbs 1312646222) Systolic BP (test code mmHg = 1735568400) Diastolic BP (test code mmHg = 9497246764) Heart Rate (test code = bpm 1290240353) BSA (test code = 1.85 m2 3765720212) IVS (test code = 1.22 cm 2580833074) Interventricular Septum 1.22 cm Diastolic Thickness by 2D (test code = 1853003) LVIDD (test code = 5.00 cm 0962360481) Left Ventricular End 117.9 mL Diastolic Volume by Teichholz Method (test code = 5100782) LVPWD (test code = 1.22 cm 1767438526) PW (test code = 1.22 cm 0.6-1.2 6837599821) EF(Teich) (test code = 74.60 % 4871155686) LVIDS (test code = 2.80 cm 6493260245) Left Ventricular End 29.9 mL Systolic Volume by Teichholz Method (test code = 4466043) FS (test code = 44 % 1383163052) EF - 2D (test code = 74.60 % 83062544) LVOT diameter (test 2.16 cm code = 9111746663) LVOT area (test code = 3.70 cm2 5536218103) Ao root diam (test code 3.40 cm = 5560379018) Aortic root (test code 3.4 cm = 3118550903) Ao root annulus (test 3.4 cm code = 5044240041) LA size (test code = 3.4 cm 8863248548) TR Peak Spencer (test code 330.0 cm/s = 6849416101) Triscuspid Valve mmHg Regurgitation Peak Gradient (test code = 0754168207) PV REGURGITATION PEAK mmHg GRADIENT (test code = 1888597962) PI dec slope (test code 137.20 cm/s2 = 2760185907) LAV(MOD-sp4) (test code 102.90 mL = 2382292297) MV Peak E Spencer (test 84.1 cm/s code = 9410968932) MV Peak A Spencer (test 40.1 cm/s code = 7967187672) E/A ratio (test code = ratio 1509763632) MV valve area p 1/2 3.70 cm2 method (test code = 2692960541) MV dec slope (test code 413.00 cm/s2 = 7541276156) MV P1/2t max spencer (test 83.70 cm/s code = 9009761247) MV Prop V (test code = 41.80 cm/s 4820988289) Tapse (test code = 1.83 cm 6671402482) LVOT stroke volume 96.90 cm3 (test code = 3862540945) LVOT peak spencer (test 125.5 cm/s code = 6298564928) LVOT mn grad (test code mmHg = 2669603343) AV LVOT peak gradient mmHg (test code = 4093885990) LVOT peak VTI (test 26.4 cm code = 4303826899) LV V1 mean (test code = 78.10 cm/s 0011804732) Aortic valve mean 103.7 cm/s velocity (test code = 1816740504) Ao peak spencer (test code 165.6 cm/s = 6480613188) Ao VTI (test code = 37.2 cm 4996576639) AV area by cont VTI 2.6 cm2 (test code = 5299424355) AV area peak spencer (test 2.8 cm2 code = 8747333053) Ao max PG (test code = 11.00 mm[Hg] 0547364169) AV peak gradient (test mmHg code = 3825931607) AV valve area (test 2.60 cm2 code = 7148144918) AV mean gradient (test mmHg code = 3255555232) LA Volume Index (BP) 55.2 mL/m2 (test code = 2144431532) LA volume (BP) (test 102.1 mL code = 6961344591) LAV(MOD-sp2) (test code 86.10 mL = 2453122100) A2C EF (test code = 61.20 % 4821528899) EF(sp2-el) (test code = 61.60 % 6409150837) SV(MOD-sp2) (test code 47.10 mL = 9551761836) LV Diastolic Volume 70.7 mL (BP) (test code = 7302226580) A4C EF (test code = 53.00 % 8596045414) EF(MOD-bp) (test code = 56.70 % 9268482812) EF(sp4-el) (test code = 53.90 % 6234305540) LV Systolic Volume (BP) 30.6 mL (test code = 8060372411) SV(MOD-bp) (test code = 40.10 mL 3898360977) SV(MOD-sp4) (test code 32.40 mL = 0873270481) SV(sp4-el) (test code = 33.10 mL 2515610079) EF (test code = 8659959286) Left Ventricular Stroke 40.1 mL Volume by 2-D Biplane-MOD (test code = 8492527) LV Diastolic Volume 38.2 mL/m2 Index (BP) (test code = 9621480514) LV Systolic Volume 16.5 mL/m2 Index (BP) (test code = 7698493648) Radiology Study observation (narrative) (test code = 37681-7) KYLE (test code = KYLE) ?Left?Ventricle: Left [...] is normal. [facility] [id number] 05:45:01 Test Item Value Reference Interpretation Comments Range TROPONIN I (test See_Comment [Automated code = 4126315296) message] The system which generated this result [...] biotin. Lab Interpretation Normal (test code = 43904-3) [facility] [id number] 05:41:40 Test Item Value Reference Range Interpretation Comments NT-proBNP (test code 4250 pg/mL See_Comment H [Autom ated = 8807014525) message] The system which generated this result transmitted reference range : <=125. The reference range was not used to interpret this result as normal/abnormal . KYLE (test code = KYLE) Biotin has been reported to cause a negative bias, interpret results relative to patient's use of biotin. Lab Interpretation Abnormal (test code = 48007-3) [facility] THRMPLAS [id number] 05:35:21 Test Item Value Reference Range Interpretation Comments APTT Patient (test See_Comment [Automat ed code = 3173-2) message] The system which generated this result transmitted reference range : 23 - 38 Seconds . The reference range was not used to interpr et this result as normal/abnormal . KYLE (test code = KYLE) The [facility] patient population mean normal value for aPTT is 30 seconds. Lab Interpretation Normal (test code = 52941-6) [facility] [id number] 05:35:21 Test Item Value Reference Range Interpretation Comments APTT Patient (test See_Comment [Automat ed code = 3173-2) message] The system which generated this result transmitted reference range : 23 - 38 Seconds . The reference range was not used to interpr et this result as normal/abnormal . KYLE (test code = KYLE) The [facility] patient population mean normal value for aPTT is 30 seconds. Lab Interpretation Normal (test code = 30385-7) [facility] HospitalPROTHROMBIN TIME / [id number] 05:33:21 Test Item Value Reference Range Interpretation [...] tions. Lab Interpretation (test Normal code = 99245-3) [facility] METABOLIC PANEL (06835)2022-02-11 05:33:21 Test Item Value Reference Range Interpretation Comments NA (test code = 137 mmol/L 135-145 7256489508) K (test code = 4.3 mmol/L 3.5-5 5084564294) CL (test code = 103 mmol/L 98-108 4987542210) CO2 TOTAL (test code = 25 mmol/L 23-31 0559375039) AGAP (test code = 2-16 0422378752) BUN (test code = 19 mg/dL 7-23 3187498842) GLUCOSE (test code = 120 mg/dL 70-110 H 4343488542) CREATININE (test code = 1.15 mg/dL 0.5-1.04 H 9493860849) TOTAL BILI (test code = 0.9 mg/dL 0.1-1.5 3486360237) CALCIUM (test code = 8.9 mg/dL 8.6-10.6 8613228070) T PROTEIN (test code = 6.6 g/dL 6.3-8.2 4066045616) ALBUMIN (test code = 4.0 g/dL 3.5-5 3765245608) ALK PHOS (test code = 73 U/L 34-122 8958881097) ALTv (test code = 18 U/L 5-35 1742-6) AST(SGOT) (test code = 31 U/L 13-40 1479783305) eGFR (test code = mL/min/1.73m2 2528761967) KYLE (test code = KYLE) Association of [...] tests). Lab Interpretation Abnormal (test code = 40924-3) [facility]. METABOLIC PANEL (37126)2022-02-11 05:33:21 Test Item Value Reference Range Interpretation Comments NA (test code = 137 mmol/L 135-145 7506243411) K (test code = 4.3 mmol/L 3.5-5.0 3090603871) CL (test code = 103 mmol/L 98-108 4439385905) CO2 TOTAL (test code = 25 mmol/L 23-31 0408282270) AGAP (test code = 2-16 7766575802) BUN (test code = 19 mg/dL 7-23 0156738572) GLUCOSE (test code = 120 mg/dL 70-110 H 8065373257) CREATININE (test code = 1.15 mg/dL 0.50-1.04 H 7365346872) TOTAL BILI (test code = 0.9 mg/dL 0.1-1.4 2205954632) CALCIUM (test code = 8.9 mg/dL 8.6-10.6 2708633172) T PROTEIN (test code = 6.6 g/dL 6.3-8.2 8734163202) ALBUMIN (test code = 4.0 g/dL 3.5-5.0 0117517170) ALK PHOS (test code = 73 U/L 34-122 8220704247) ALTv (test code = 18 U/L 5-35 1742-6) AST(SGOT) (test code = 31 U/L 13-40 4260135506) eGFR (test code = mL/min/1.73m2 4947421933) KYLE (test code = KYLE) Association of [...] tests). Lab Interpretation Abnormal (test code = 53013-3) [facility] HospitalPROTHROM[facility] TIME / [id number] 05:33:21 Test Item Value Reference Range Interpretation [...] tions. Lab Interpretation (test Normal code = 07618-8) [facility] WITH [id number] 05:14:37 Test Item Value Reference Range Interpretation Comments WBC (test code = See_Comment [Automated 2090-2) message] The sy stem which generated this [...] RDW-SD (test code = 47.9 fL 39-49.9 18128-0) RDW-CV (test code = 14.9 % 12-15.5 788-0) PLT (test code = See_Comment L [Automated 777-3) message] The sy stem which generated this result transmitted reference range : 166 - 358 10*3/ ?L. The reference r abbey was not used to interpret this result as normal/abnormal . MPV (test code = 9.1 fL 9.5-12.9 L 83538-6) NRBC/100 WBC (test See_Comment [Automat ed code = 6193203304) message] The system which generated this result transmitted reference range : 0.0 - 10.0 /100 WBCs. The refer ence range was not u sed to interpret th is result as normal/abnormal . NRBC x10^3 (test code See_Comment [Auto mated = 4137563715) message] The s ystem which generated this result transmitted reference range : 10*3/?L. The reference range was not used to interpret this result as normal/abnormal . GRAN MAT (NEUT) % 78.5 % (test code = 770-8) IMM GRAN % (test code 0.20 % = 7862033821) LYMPH % (test code = 11.6 % 736-9) MONO % (test code = 8.4 % 5905-5) EOS % (test code = 1.1 % 713-8) BASO % (test code = 0.2 % 706-2) GRAN MAT x10^3(ANC) 3.45 10*3/uL 1.88-7.09 (test code = 6985362757) IMM GRAN x10^3 (test 0-0.06 code = 6506183784) LYMPH x10^3 (test code 0.51 10*3/uL 1.32-3.29 L = 731-0) MONO x10^3 (test code 0.37 10*3/uL 0.33-0.92 = 742-7) EOS x10^3 (test code = 0.05 10*3/uL 0.03-0.39 711-2) BASO x10^3 (test code 0.01-0.07 = 704-7) Lab Interpretation Abnormal (test code = 49856-2) [facility] Coronavirus 2019 [id number] 18:08:00 Test Item Value Reference Range Interpretation [...] det ection of nucleic acids f rom psrWNQC-JvI-8 v irus and diagnosis of SA RS-CoV-2 virusinfection. It is an Emergency Use Authorization ( EUA) testauthorized by the U.[place] FDA. BASIC METABOLIC [id number] 09:37:00 Test Item Value Reference Range Interpretation [...] = 9.0 mg/dL 8.0-10.5 N CA) PROTHROMBIN [id number] 09:32:00 Test Item Value Reference Range Interpretation [...] (to prevent recurrent infar ct). 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 [facility] - XR CHEST 1 [id number] 00:00:00 [facility] 1955 Sex: F FAX: RobinCarmenza Peterson DO [phone] [place]: St: ADM FAX: Mike Scales MD [phone] FAX: Bahman Chopra [phone] Name: LIO WATTS [facility] : 1955 Age/S: 66/F [address] Unit #: [id number] Loc: [place] [address] Phys: Bahman Chopra Acct: [id number] Dis Date: Status: ADM IN PHONE #: [phone] Exam Date: 06/17/2021 1320 FAX #: [phone] Reason: WATCHMAN EXAMS: CPT CODE: [id number] XR CHEST 1 V 07157 PROCEDURE INFORMATION: Exam: XR Chest Exam date [...] Chopra Technologist: RT Taylor(R) Trnscrd Date/Time/By: 06/17/2021 (4418) : By: IselaKWL Orig Print D/T: S: 06/17/2021 (0307) PAGE 1 Signed ReportCOVID 19 Asymptomatic IH [id number] 12:29:00 Test Item Value Reference Range Interpretation [...] high or waivedcomplexit y tests. BASIC METABOLIC [id number] 11:37:00 Test Item Value Reference Range Interpretation [...] code = 9.0 mg/dL 8.0-10.5 N CA) [id number] 11:37:00 Test Item Value Reference Range Interpretation Comments PREALBUMIN (test code = PREALB) 24.3 mg/dL 16.0-40.0 N PROTHROMBIN [id number] 11:03:00 Test Item Value Reference Range Interpretation [...] (to prevent recurrent infar ct). CBC W/AUTO [id number] 10:59:00 Test Item Value Reference Range Interpretation [...] 3/uL 0.0-0.1 N NRBC#) - CHEST 2 [id number] 00:00:00 [facility] : 1955 Sex: F FAX: Carmenza Kelly DO [phone] [place]: St: PRE FAX: Y Mike Lund MD [phone] Name: LIO WATTS [facility] Jeddo : 1955 Age/S: 66/F [address] [place] [address] Unit #: [id number] Loc: [place], [place] [address]Rhgy: Mike Lund MD Acct: [id number] Dis Date: Status[place] [facility] [place]: [phone] Exam Date: 06/16/2021 112 FAX #: [phone] Reason: PREOP EXAMS: CPT CODE: [id number] XR CHEST 2 V 22540 PROCEDURE INFORMATION: Exam: XR Chest Exam date [...] findings at 1134 Reported and signed by: Seelne Collins D.O. CC: Carmenza Rahman DO; Mike Lund MD Technologist: Danielle Nix RT(R) Trnscrd Date/Time/By: 06/16/2021 (5587) : By: [email or web address] Orig Print D/T: S: 06/16/2021 (4914) PAGE 1 Signed ReportGastrointestinal unvfy8247-98-72 04:35:05 Test Item Value Reference Interpretation Comments [...] Rotavirus PCR (test Not Detected code = 8075295) Salmonella PCR (test Not Detected code = [...] PCR Not Detected (test code = 7124) [facility] mxfdwbi6133-96-92 19:30:47 Test Item Value Reference Range Interpretation Comments Case number (test [id number] code = 3527482) Surgical pathology See link below for PDF report (test code = Lab Report 2255) Result status (test This is Supplemental code = 2616370) Report for [id number] [facility]2021-04-09 16:31:00 Test Item Value Reference Range Interpretation Comments POC Activated Clotting Time (test code 153 s = POC Activated Clotting Time) [facility]jjksksSRZQGMTQTK9096-18-70 16:31:00 Test Item Value Reference Range Interpretation Comments POC Activated Clotting Time (test code 153 s = POC Activated Clotting Time) [facility]GapdjfzTOJGYMMBYA6665-96-00 16:31:00 Test Item Value Reference Range Interpretation Comments POC Activated Clotting Time (test code 153 s = POC Activated Clotting Time) [facility]viewZekqwwqSZLMETZALQ2503-81-78 16:31:00 Test Item Value Reference Range Interpretation Comments POC Activated Clotting Time (test code 153 s = POC Activated Clotting Time) [facility]viewYrkckevLLNNLOCQCK2210-68-03 16:31:00 Test Item Value Reference Range Interpretation Comments POC Activated Clotting Time (test code 153 s = POC Activated Clotting Time) [facility]viewWtfzajnOHBJVJIQZS1721-85-56 16:31:00 Test Item Value Reference Range Interpretation Comments POC Activated Clotting Time (test code 153 s = POC Activated Clotting Time) [facility]viewFppmuvyOCPPKQTDGD6754-00-13 16:31:00 Test Item Value Reference Range Interpretation Comments POC Activated Clotting Time (test code 153 s = POC Activated Clotting Time) [facility]viewKbxqvpeSMGPMCZGNI3942-95-95 14:37:00 Test Item Value Reference Range Interpretation Comments POC Activated Clotting Time (test code 454 s = POC Activated Clotting Time) [facility]viewNpufjyqZJPLHIFNGQ3208-81-65 14:37:00 Test Item Value Reference Range Interpretation Comments POC Activated Clotting Time (test code 454 s = POC Activated Clotting Time) [facility]viewThotsssAIHHPVLTDC4473-89-33 14:37:00 Test Item Value Reference Range Interpretation Comments POC Activated Clotting Time (test code 454 s = POC Activated Clotting Time) [facility]viewZqbeljuZQBMPJAUQM6920-40-31 14:37:00 Test Item Value Reference Range Interpretation Comments POC Activated Clotting Time (test code 454 s = POC Activated Clotting Time) [facility]viewJfpgcisQIUXIFNBLA6734-61-97 14:37:00 Test Item Value Reference Range Interpretation Comments POC Activated Clotting Time (test code 454 s = POC Activated Clotting Time) [facility]viewGnqvbreDZHXIZFESC2962-98-41 14:37:00 Test Item Value Reference Range Interpretation Comments POC Activated Clotting Time (test code 454 s = POC Activated Clotting Time) [facility]viewMhotpfzWRFELREUYH3603-35-61 14:37:00 Test Item Value Reference Range Interpretation Comments POC Activated Clotting Time (test code 454 s = POC Activated Clotting Time) [facility]viewAhebklnCVOYHJIHQW4014-07-35 14:13:00 Test Item Value Reference Range Interpretation Comments POC Activated Clotting Time (test code 354 s = POC Activated Clotting Time) [facility]viewPhzpqfrVSCLLJLNCN5097-09-48 14:13:00 Test Item Value Reference Range Interpretation Comments POC Activated Clotting Time (test code 354 s = POC Activated Clotting Time) [facility]viewQkyhhdqSJVTZFLNXI0361-42-82 14:13:00 Test Item Value Reference Range Interpretation Comments POC Activated Clotting Time (test code 354 s = POC Activated Clotting Time) [facility]viewZczpjybQHWFAPZLCE3373-62-10 14:13:00 Test Item Value Reference Range Interpretation Comments POC Activated Clotting Time (test code 354 s = POC Activated Clotting Time) [facility]viewFzawfwjWCUXTZUIIO9134-40-93 14:13:00 Test Item Value Reference Range Interpretation Comments POC Activated Clotting Time (test code 354 s = POC Activated Clotting Time) [facility]viewKmlkjpoHBYXRYLYIS8121-48-32 14:13:00 Test Item Value Reference Range Interpretation Comments POC Activated Clotting Time (test code 354 s = POC Activated Clotting Time) [facility]viewJkflzrwNWTCOCBCUH0767-06-86 14:13:00 Test Item Value Reference Range Interpretation Comments POC Activated Clotting Time (test code 354 s = POC Activated Clotting Time) [facility] SZDMWUT7994-36-74 10:37:00Negative (08/29/20 5:37 AM) [facility] HermannCHEM YMRKJ4102-15-77 10:37:67287Xohsdlfr HermannCHEM PANEL 2020-08-29 10:37:0028[facility] HermannCHEM GZYNR9416-14-29 10:37:001.01[facility] HermannCHEM MZNTA3387-24-82 10:37:44867Srpudzcv HermannCHEM XOKFW8977-13-78 10:37:003.8[facility] HermannCHEM OCVDB4392-02-32 10:37:23270Nerknbhx HermannCHEM IYHFZ8390-70-67 10:37:0028[facility] HermannCHEM QDXQS1081-77-80 10:37:009.8 [facility] HermannCHEM LRQMS1420-16-75 10:37:0011.8[facility] HermannCHEM PANEL 2020-08-29 10:37:0059[facility] HermannCHEM WGGWT1425-57-24 10:37:002.9[facility] VzqhdmcJXCJCKCEUV2713-12-88 10:37:006.8[facility] YegwzzhZLQCXEDXWY5020-93-31 10:37:004.47[facility] CwqjttoNJUXZRHYQE0580-54-04 10:37:0010.6[facility] AJHGUCBOJD3404-30-18 10:37:0034.0[facility] AghephlAYRFGXISLA5522-97-55 10:37:00 76.1[facility] PbpbthwWLJKEPMOXZ6936-68-14 10:37:00 Test Item Value Reference Range Interpretation Comments MCH (test code = MCH) 23.8 pg 27.0-31.0 [facility] TogihfaLIMNDUCWTR7602-31-17 10:37:0031.3[facility] HermannHEMATOLOGY 2020-08-29 10:37:0018.2[facility] MxehkkrRNGQEIIGSM9283-95-14 10:37:96894Kvkxwubq GyigcnaUSRADJHCVD5719-38-94 10:37:007.5[facility] HahfqgiLTUEINCJYO5601-91-80 10:37:00 Test Item Value Reference Range Interpretation Comments PT (test code = PT) 12.8 s 12.0-14.7 [facility] BsezjihLGIVYRZCTG8751-05-06 10:37:00 Test Item Value Reference Range Interpretation Comments INR (test code = INR) 0.97 1 0.85-1.17 [facility] CzygtavIQGZLDOFKO5587-89-77 10:37:00 Test Item Value Reference Range Interpretation Comments PTT (test code = PTT) 25.0 s 22.9-35.8 [facility] FhzmhisOOOMFQOZND6915-67-21 10:37:0070.5[facility] HermannHEMATOLOGY 2020-08-29 10:37:0018.8[facility] KigrgtmUSITTRXYLP4062-05-42 10:37:009.5[facility] UnxaaewSDEYJHFWEO3404-73-12 10:37:000.9[facility] BgplwhcSEHPBKZZVZ7562-63-91 10:37:000.3[facility] QfhffqgYLFIHOCOTH2278-34-76 10:37:004.8[facility] RKARGFOZRX1155-22-98 10:37:001.3[facility] EmjprfaSNBOFDFTLI6276-95-68 10:37:000.6 [facility] NfqdqkfWRZMDDXEFY7923-90-74 10:37:000.1[facility] HermannHEMATOLOGY 2020-08-29 10:37:001+ *ABN*(08/29/20 5:37 AM)[facility] SvhsfktWGCBQTSJYP7426-66-24 10:37:00Not Detected (08/29/20 5:37 AM)[facility] HermannBLOOD BANK RESULTS 2020-08-29 10:37:00Negative (08/29/20 5:37 AM)[facility] HermannCHEM BCECM0711-40-51 10:37:77667Fmplquyv HermannCHEM PKZMP0686-58-99 10:37:0028[facility] HermannCHEM PBXTL7163-12-14 10:37:001.01[facility] HermannCHEM MPKAW5291-28-76 10:37:61791 [facility] HermannCHEM DTJXY4669-87-21 10:37:003.8[facility] HermannCHEM PANEL 2020-08-29 10:37:11383Xmwgfgqx HermannCHEM TVKGG3466-75-00 10:37:0028[facility] HermannCHEM NZCMB4885-52-90 10:37:009.8[facility] HermannCHEM YFKMX7043-11-07 10:37:0011.8[facility] HermannCHEM YZLVH5317-88-35 10:37:0059[facility] HermannCHEM ABLSV5986-06-31 10:37:002.9[facility] XazkciqFYZGBVECCA3533-39-19 10:37:006.8 [facility] OwhaaqlHHDVHEWWDM8953-92-73 10:37:004.47[facility] HermannHEMATOLOGY 2020-08-29 10:37:0010.6[facility] VqwapotOZHWXSJHNB0082-34-81 10:37:0034.0[facility] AyduwkxVQBWKWEIBK7594-22-56 10:37:0076.1[facility] BprraiwDQWFPWROPB1987-94-35 10:37:00 Test Item Value Reference Range Interpretation Comments MCH (test code = MCH) 23.8 pg 27.0-31.0 [facility] FucjabwIRKVTFIHLQ0357-87-36 10:37:0031.3[facility] HermannHEMATOLOGY 2020-08-29 10:37:0018.2[facility] PtpuukiBFFDDJLVFP7603-48-95 10:37:81905Hpvdnljy KdpsoagMHWJEJKFBB6171-09-60 10:37:007.5[facility] VwnjrrjDLNLOFDKOO5734-61-12 10:37:00 Test Item Value Reference Range Interpretation Comments PT (test code = PT) 12.8 s 12.0-14.7 [facility] ZwfcxttTKLZRKASVZ0639-10-31 10:37:00 Test Item Value Reference Range Interpretation Comments INR (test code = INR) 0.97 1 0.85-1.17 [facility] SgnwptnKJMPPUZGRU8803-79-09 10:37:00 Test Item Value Reference Range Interpretation Comments PTT (test code = PTT) 25.0 s 22.9-35.8 [facility] QohojqyUMVWMCOOTN2593-11-08 10:37:0070.5[facility] HermannHEMATOLOGY 2020-08-29 10:37:0018.8[facility] KrzupejBDHGNFJSDH6831-73-88 10:37:009.5[facility] StpxfdvHELVJBWSNO4477-52-69 10:37:000.9[facility] QybufmrXMZTODPFQC2125-67-35 10:37:000.3[facility] HnvaxamHHBFWHUTPO5599-74-25 10:37:004.8[facility] UIRCJLBERB1834-03-42 10:37:001.3[facility] HcjrbvpBLWRZTJHIG0632-74-53 10:37:000.6 [facility] PolyztmQTGPHDYEJZ5007-97-66 10:37:000.1[facility] HermannHEMATOLOGY 2020-08-29 10:37:001+ *ABN*(08/29/20 5:37 AM)[facility] ObrmckxZNKJKOERMY4642-54-35 10:37:00Not Detected (08/29/20 5:37 AM)[facility] HermannBLOOD BANK RESULTS 2020-08-29 10:37:00Negative (08/29/20 5:37 AM)[facility] HermannCHEM WNRZD0998-66-57 10:37:61720Ugjcubzn HermannCHEM DJXVF5391-59-65 10:37:0028[facility] HermannCHEM QCAJR8825-53-56 10:37:001.01[facility] HermannCHEM GVTQJ5994-33-15 10:37:47621 [facility] HermannCHEM GICVR3516-29-28 10:37:003.8[facility] HermannCHEM PANEL 2020-08-29 10:37:07587Sepoiysj HermannCHEM GEXWK5191-88-96 10:37:0028[facility] HermannCHEM XWTWE5701-73-63 10:37:009.8[facility] HermannCHEM ECHPW6036-16-30 10:37:0011.8[facility] HermannCHEM GYLOB5565-98-30 10:37:0059[facility] HermannCHEM FBPRU1851-69-74 10:37:002.9[facility] EhiebodQGMKUPYBNH5057-23-32 10:37:006.8 [facility] HtlzmsrZQGPDRQUGO0362-67-05 10:37:004.47[facility] HermannHEMATOLOGY 2020-08-29 10:37:0010.6[facility] GskzdnlYBPZWTTBAK3525-23-33 10:37:0034.0[facility] JbzvsoxEQACNZZVGG7218-29-47 10:37:0076.1[facility] DdbpviiNWSHKIIDCH7976-60-09 10:37:00 Test Item Value Reference Range Interpretation Comments MCH (test code = MCH) 23.8 pg 27.0-31.0 [facility] NoiccamZSAUKIWRDK5324-42-33 10:37:0031.3[facility] HermannHEMATOLOGY 2020-08-29 10:37:0018.2[facility] OwmnmgjYTVIRUKKHR4184-60-39 10:37:69004Dzkluaal KzizzgcRCGFIXGWBG6892-48-39 10:37:007.5[facility] JgdcpjnTLOZSHDFWP6934-84-01 10:37:00 Test Item Value Reference Range Interpretation Comments PT (test code = PT) 12.8 s 12.0-14.7 [facility] MppuvuyCNPTUGJBZH2284-29-35 10:37:00 Test Item Value Reference Range Interpretation Comments INR (test code = INR) 0.97 1 0.85-1.17 [facility] HvfokdjEOFOUTJNCQ0345-60-07 10:37:00 Test Item Value Reference Range Interpretation Comments PTT (test code = PTT) 25.0 s 22.9-35.8 [facility] QnxjzgpNHFKMSZKBS6867-38-63 10:37:0070.5[facility] HermannHEMATOLOGY 2020-08-29 10:37:0018.8[facility] WfhzetoVIPUHIWAXA8140-80-63 10:37:009.5[facility] ImbfqsrRDVNNSDXDJ3989-86-48 10:37:000.9[facility] AkjtwhaKXLBJXWZPZ1973-18-90 10:37:000.3[facility] XwysbvfYPJNUNEBJX9807-35-82 10:37:004.8[facility] QLFSZEHAVO6467-68-94 10:37:001.3[facility] MoorievNPKNZCGWBQ0506-46-54 10:37:000.6 [facility] DzavnkqWDABLHRLSF6132-61-66 10:37:000.1[facility] HermannHEMATOLOGY 2020-08-29 10:37:001+ *ABN*(08/29/20 5:37 AM)[facility] DznpwasIJEHDDQTUF9773-37-53 10:37:00Not Detected (08/29/20 5:37 AM)[facility] HermannBLOOD BANK RESULTS 2020-08-29 10:37:00Negative (08/29/20 5:37 AM)[facility] HermannCHEM PKZSA7125-65-14 10:37:83696Ezdabnxj HermannCHEM HPEPX9535-47-36 10:37:0028[facility] HermannCHEM CQJBE9201-41-92 10:37:001.01[facility] HermannCHEM OOOUE1532-91-80 10:37:24426 [facility] HermannCHEM IUKEK9180-34-30 10:37:003.8[facility] HermannCHEM PANEL 2020-08-29 10:37:14562Hrxlubyk HermannCHEM VWLUC8606-65-36 10:37:0028[facility] HermannCHEM GWGKH5769-97-98 10:37:009.8[facility] HermannCHEM HTVNM2216-96-38 10:37:0011.8[facility] HermannCHEM PJLXT3323-37-97 10:37:0059[facility] HermannCHEM UAFZE4814-54-71 10:37:002.9[facility] BldqcyoXVXPAMNFBC7439-49-18 10:37:006.8 [facility] BmwhkmgHEXEMBQLBM5042-46-20 10:37:004.47[facility] HermannHEMATOLOGY 2020-08-29 10:37:0010.6[facility] NbsulobODHQGLHUIR4731-33-01 10:37:0034.0[facility] MpsfbisANQNGCILHW2641-22-78 10:37:0076.1[facility] JayjewkLDWRCCIAXS0733-15-53 10:37:00 Test Item Value Reference Range Interpretation Comments MCH (test code = MCH) 23.8 pg 27.0-31.0 [facility] GjkoitgEAOVFZRSSI3998-18-71 10:37:0031.3[facility] HermannHEMATOLOGY 2020-08-29 10:37:0018.2[facility] RzjxljtWVPVSXIVWK7432-06-38 10:37:83836Yhxjcymb LsetshdPSPQLPSNXJ0619-94-95 10:37:007.5[facility] CfwlkkmUIXGNEWYQO8088-15-90 10:37:00 Test Item Value Reference Range Interpretation Comments PT (test code = PT) 12.8 s 12.0-14.7 [facility] XgchqjwYYXRISZCGJ1649-80-64 10:37:00 Test Item Value Reference Range Interpretation Comments INR (test code = INR) 0.97 1 0.85-1.17 [facility] VpyptwxKYDOFVTSVR0420-78-82 10:37:00 Test Item Value Reference Range Interpretation Comments PTT (test code = PTT) 25.0 s 22.9-35.8 [facility] SposstrECUNOJPEUZ6024-27-57 10:37:0070.5[facility] HermannHEMATOLOGY 2020-08-29 10:37:0018.8[facility] BchoayuMTFECMLXWH3041-33-94 10:37:009.5[facility] XlqvkznTXQRRSAQOR4612-39-72 10:37:000.9[facility] OznjygmRKLHIQQOEA0419-50-17 10:37:000.3[facility] IlwvaxfHYXJIKFICB0670-38-39 10:37:004.8[facility] KNIFIKIBKY8473-18-15 10:37:001.3[facility] KnfqiewCDOCMXSCCN8360-84-87 10:37:000.6 [facility] JwffdcqDIDHQNALTD8268-95-11 10:37:000.1[facility] HermannHEMATOLOGY 2020-08-29 10:37:001+ *ABN*(08/29/20 5:37 AM)[facility] ZntxmkdERDPMBQJRE5695-82-26 10:37:00Not Detected (08/29/20 5:37 AM)[facility] HermannBLOOD BANK RESULTS 2020-08-29 10:37:00Negative (08/29/20 5:37 AM)[facility] HermannCHEM QDVVN2523-94-64 10:37:74780Ygspxtfw HermannCHEM ZMWJB7109-67-88 10:37:0028[facility] HermannCHEM OIUPV3173-31-80 10:37:001.01[facility] HermannCHEM QCBFY5834-42-27 10:37:43554 [facility] HermannCHEM IDLSL7308-50-65 10:37:003.8[facility] HermannCHEM PANEL 2020-08-29 10:37:95888Ewprkrfp HermannCHEM RDWCL4439-83-64 10:37:0028[facility] HermannCHEM HVBXJ7827-08-34 10:37:009.8[facility] HermannCHEM VQECG1323-41-88 10:37:0011.8[facility] HermannCHEM OVHYO0371-69-31 10:37:0059[facility] HermannCHEM PFQQQ5099-38-37 10:37:002.9[facility] HpednphAGASPXMLGN2706-29-95 10:37:006.8 [facility] CjnsyilFXNOLTABEZ0782-53-48 10:37:004.47[facility] HermannHEMATOLOGY 2020-08-29 10:37:0010.6[facility] NvauqmpDHQJVFWTTZ5788-28-75 10:37:0034.0[facility] WksbpmjNKGWSGAXUD6567-35-21 10:37:0076.1[facility] FifkypeUXMDDABILJ3890-00-71 10:37:00 Test Item Value Reference Range Interpretation Comments MCH (test code = MCH) 23.8 pg 27.0-31.0 [facility] XqmceppBDSACZVSRW7316-85-25 10:37:0031.3[facility] HermannHEMATOLOGY 2020-08-29 10:37:0018.2[facility] BjsfjssSVVBAZVIBW7898-97-47 10:37:92171Jtmmwgoh VamxnvyBQDLKKTYQN5752-80-56 10:37:007.5[facility] EyysltnUXPRNLILIR4113-25-72 10:37:00 Test Item Value Reference Range Interpretation Comments PT (test code = PT) 12.8 s 12.0-14.7 [facility] AjiugysTPGYEDSQCM4211-25-97 10:37:00 Test Item Value Reference Range Interpretation Comments INR (test code = INR) 0.97 1 0.85-1.17 [facility] TiuqslaKJROVMNXKD8393-78-68 10:37:00 Test Item Value Reference Range Interpretation Comments PTT (test code = PTT) 25.0 s 22.9-35.8 [facility] MlkozpeFUCGKIIIQF6269-17-98 10:37:0070.5[facility] HermannHEMATOLOGY 2020-08-29 10:37:0018.8[facility] IcuzmzpLDGPDLOTIY2176-76-09 10:37:009.5[facility] CbjddvvZKCMZDHTSO0445-54-26 10:37:000.9[facility] RtijfhxLVBTYAUDBL0015-17-61 10:37:000.3[facility] LeqlffpXBCTDIMKZC7347-35-18 10:37:004.8[facility] BHPXWWNKGB2326-40-08 10:37:001.3[facility] OoxzxjcZZPCKEGPCB3078-73-41 10:37:000.6 [facility] BkpgidcICFCBVZPWK2208-29-46 10:37:000.1[facility] HermannHEMATOLOGY 2020-08-29 10:37:001+ *ABN*(08/29/20 5:37 AM)[facility] HotgusvHVJMHKIDZC3590-32-86 10:37:00Not Detected (08/29/20 5:37 AM)[facility] HermannBLOOD BANK RESULTS 2020-08-29 10:37:00Negative (08/29/20 5:37 AM)[facility] HermannCHEM ZSYER3194-35-87 10:37:84692Atsiblag HermannCHEM FTCNE2631-93-25 10:37:0028[facility] HermannCHEM NPTUQ6335-72-30 10:37:001.01[facility] HermannCHEM LMEXC7998-26-50 10:37:00660 [facility] HermannCHEM MJSCK2200-61-40 10:37:003.8[facility] HermannCHEM PANEL 2020-08-29 10:37:85562Zwammqeu HermannCHEM QBKMY8171-30-59 10:37:0028[facility] HermannCHEM KQCOT9248-96-84 10:37:009.8[facility] HermannCHEM GHBIT0914-95-62 10:37:0011.8[facility] HermannCHEM ZAPSE9320-35-97 10:37:0059[facility] HermannCHEM OZYAU7266-16-50 10:37:002.9[facility] NmhucjbVMYTHHTPQR6572-34-66 10:37:006.8 [facility] YgximbrPFZEZRWHXF5137-75-63 10:37:004.47[facility] HermannHEMATOLOGY 2020-08-29 10:37:0010.6[facility] VjloosdBOHBQAJTNI8097-57-40 10:37:0034.0[facility] MfmyscjPQJYDKZAMC1516-53-56 10:37:0076.1[facility] NascqquKXQBYWKOUF9598-45-88 10:37:00 Test Item Value Reference Range Interpretation Comments MCH (test code = MCH) 23.8 pg 27.0-31.0 [facility] MbqftkzRYAZNMJCVQ5887-61-56 10:37:0031.3[facility] HermannHEMATOLOGY 2020-08-29 10:37:0018.2[facility] ExhsfcxZFCBQBFUBO2742-55-81 10:37:98012Kpochvti UtpyhwgCXWDSZOAWY5119-84-60 10:37:007.5[facility] AursobsZJDUUZAHAG6286-62-18 10:37:00 Test Item Value Reference Range Interpretation Comments PT (test code = PT) 12.8 s 12.0-14.7 [facility] IvolaqwVQKZZLESUW5310-97-93 10:37:00 Test Item Value Reference Range Interpretation Comments INR (test code = INR) 0.97 1 0.85-1.17 [facility] NhqapvcMLJVWNXJZL2848-06-80 10:37:00 Test Item Value Reference Range Interpretation Comments PTT (test code = PTT) 25.0 s 22.9-35.8 [facility] GtmjarwESVEAUSOUF0028-37-39 10:37:0070.5[facility] HermannHEMATOLOGY 2020-08-29 10:37:0018.8[facility] DefxfpaMIRQAFVFYB5978-20-65 10:37:009.5[facility] NfjhzawRTCLLWGBQD5180-66-80 10:37:000.9[facility] HydljtgGSRCVUUDJO1119-29-77 10:37:000.3[facility] NzrpvksHTYMXHJBEW9415-93-50 10:37:004.8[facility] KPVNKMWDGK1296-92-58 10:37:001.3[facility] HcfgmpfRXDLUTTKHP7401-19-14 10:37:000.6 [facility] LiklemlCIOYTXUGQE5343-12-55 10:37:000.1[facility] HermannHEMATOLOGY 2020-08-29 10:37:001+ *ABN*(08/29/20 5:37 AM)[facility] OkvcceoMXWFEZYCLV5064-01-93 10:37:00Not Detected (08/29/20 5:37 AM)[facility] HermannBLOOD BANK RESULTS 2020-08-29 10:37:00Negative (08/29/20 5:37 AM)[facility] HermannCHEM ANOYQ6021-18-16 10:37:43019Dsbcngdk HermannCHEM SRYIO4143-55-15 10:37:0028[facility] HermannCHEM GYPWW6943-90-62 10:37:001.01[facility] HermannCHEM DQOIX0256-39-79 10:37:40782 [facility] HermannCHEM RHGOK2781-39-04 10:37:003.8[facility] HermannCHEM PANEL 2020-08-29 10:37:81136Xpnqqbmk HermannCHEM UNMFN2849-07-28 10:37:0028[facility] HermannCHEM UDNFQ3805-71-15 10:37:009.8[facility] HermannCHEM PWPXG2601-59-46 10:37:0011.8[facility] HermannCHEM MXDXG4973-17-25 10:37:0059[facility] HermannCHEM WEOCH3853-24-81 10:37:002.9[facility] IdmfougHZBSJIXFTU9895-12-66 10:37:006.8 [facility] MsfazgiAZCPWTQSNG7494-81-93 10:37:004.47[facility] HermannHEMATOLOGY 2020-08-29 10:37:0010.6[facility] OcsszilDVVGHCEZKX6874-81-38 10:37:0034.0[facility] KcvcstxJVIAMPBSMS2667-13-67 10:37:0076.1[facility] PxtyxaqWKWTBRCEEX3145-63-11 10:37:00 Test Item Value Reference Range Interpretation Comments MCH (test code = MCH) 23.8 pg 27.0-31.0 [facility] BsjphdgAWHXEVMKIK4279-47-32 10:37:0031.3[facility] HermannHEMATOLOGY 2020-08-29 10:37:0018.2[facility] VwfhmozAFFLONYWOG2297-21-78 10:37:29823Gyildkjt MpqwltuUJJRNIJFSR0129-94-04 10:37:007.5[facility] KecgamiEAXAYUQOAY4520-46-42 10:37:00 Test Item Value Reference Range Interpretation Comments PT (test code = PT) 12.8 s 12.0-14.7 [facility] SisotccYIQYZJHMOE7348-62-81 10:37:00 Test Item Value Reference Range Interpretation Comments INR (test code = INR) 0.97 1 0.85-1.17 [facility] VuvafrpWQQNQECSLT9864-16-06 10:37:00 Test Item Value Reference Range Interpretation Comments PTT (test code = PTT) 25.0 s 22.9-35.8 [facility] NkjbnexPCTIVBPEVI8258-85-96 10:37:0070.5[facility] 2020-08-29 10:37:0018.8[facility] IksodndTCIEVNRDTV4700-64-70 10:37:009.5[facility] KpjmwzzLUUYVXAFQZ9026-43-99 10:37:000.9[facility] BavjtehVGKFHJHHXZ2028-57-51 10:37:000.3[facility] HcksjpbRACBJDFYJY0496-34-17 10:37:004.8[facility] OFETUBYUAY0093-27-51 10:37:001.3[facility] FtlmveeIDQUYKDPLO2688-89-13 10:37:000.6 [facility] AeulewoPXXIWWTHHS1854-59-77 10:37:000.1[facility] 2020-08-29 10:37:001+ *ABN*(08/29/20 5:37 AM)[facility] NxnvjkxRETGAEPKVS0396-75-27 10:37:00Not Detected (08/29/20 5:37 AM)[facility], GC, TV,PCR, IN AHQYI4244-39-68 15:38:00 Test Item Value Reference Range Interpretation Comments FT (test code = CHTR) Not detected (qualifier Not Detected N value) FT (test code = Not detected (qualifier Not Detected N NGONO) value) FT (test code = TRVG) Not detected (qualifier Not Detected N value) [facility] VZWSHQJHLDH4827-32-27 10:57:00 Test Item Value Reference Range Interpretation Comments Color (test code = UCOLR) Dk. Yellow Clarity (test code = UCLAR) Hazy Glucose (test code = UGLUC) NEGATIVE NEGATIVE N Bilirubin (test code = UBILI) NEGATIVE NEGATIVE N Ketones (test code = UKET) NEGATIVE NEGATIVE N Specific [place] (test code = 1.025 1.005-1.030 A USPGR) [...] = None Seen None Seen N URCRYS) [facility]"
[2022-05-19] MEDS ORDERED: DICYCLOMINE HCL 20 MG/2 ML AMP IM ONE (02:31)
[2022-05-19] MEDS ORDERED: PROMETHAZINE INJ 25 MG/ML AMP ONE (02:31)
--- NOTE | 2022-05-19 02:39 | EDPHYS ---
Physician Documentation [facility] Name: Marjan Kolb Age: 67 yrs Sex: Female : 1955 Arrival Date: 05/19/2022 Time: 00:39 Bed 24 Private MD: ED Physician Ramon Baker HPI: 05/19 01:00 This 67 yrs old Female presents to ER via EMS with complaints of Abdominal Pain. cp 01:00 The patient presents with abdominal pain mid abdomen. cp 01:00 Onset: The symptoms/episode began/occurred yesterday. cp 01:00 Associated signs and symptoms: Pertinent positives: nausea and vomiting, Pertinent cp negatives: chest pain, constipation, fever, vomiting blood. The symptoms are described as constant. Severity of pain: in the emergency department the pain is unchanged despite EMS interventions. Historical: - Allergies: 00:46 Azithromycin; as6 00:46 Bactrim; as6 00:46 butorphanol; as6 00:46 Fentanyl; as6 00:46 Reglan; as6 00:46 Sulfa (Sulfonamide Antibiotics); as6 00:46 TRIMETHOPRIM; as6 - PMHx: 00:46 Anxiety; Atrial fibrillation; Bipolar disorder; esophageal varicies; Hepatitis; HIV as6 positive; Hypertensive disorder; Migraine; panic attack; - Immunization history:: Client reports receiving the 2nd dose of the Covid vaccine. - Social history:: Smoking status: Patient/guardian denies using tobacco. ROS: 01:05 Constitutional: Negative for body aches, chills, fever, poor PO intake. cp 01:05 Eyes: Negative for injury, pain, redness, and discharge. cp 01:05 ENT: Negative for drainage from ear(s), ear pain, sore throat, difficulty swallowing, difficulty handling secretions. 01:05 Cardiovascular: Negative for chest pain, palpitations. 01:05 Respiratory: Negative for cough, shortness of breath, wheezing. 01:05 Abdomen/GI: Positive for abdominal pain, nausea and vomiting, Negative for constipation, hematemesis, black/tarry stool, rectal bleeding. 01:05 : Negative for urinary symptoms. 01:05 Neuro: Negative for altered mental status, dizziness, headache, weakness. 01:05 All other systems are negative. Exam: 01:10 Constitutional: The patient appears in no acute distress, alert, awake, cp non-diaphoretic, non-toxic, well developed, well nourished. 01:10 Head/Face: Normocephalic, atraumatic. cp 01:10 Eyes: Periorbital structures: appear normal, Conjunctiva: normal, no exudate, no cp injection, Sclera: no appreciated abnormality, Lids and lashes: appear normal, bilaterally. 01:10 ENT: External ear(s): are unremarkable, Nose: is normal, Mouth: Lips: moist, Oral mucosa: moist, Posterior pharynx: Airway: no evidence of obstruction, patent. 01:10 Chest/axilla: Inspection: normal. 01:10 Cardiovascular: Rate: tachycardic, Rhythm: regular. 01:10 Respiratory: the patient does not display signs of respiratory distress, Respirations: normal, no use of accessory muscles, no retractions, labored breathing, is not present, Breath sounds: are clear throughout, no decreased breath sounds, no stridor, no wheezing. 01:10 Abdomen/GI: Inspection: abdomen appears normal, Bowel sounds: active, all quadrants, Palpation: soft, in all quadrants, mild abdominal tenderness, in the mid abdomen, rebound tenderness, is not appreciated, involuntary guarding, is not appreciated. 01:10 Back: pain, is absent, ROM is normal. 01:10 Neuro: Orientation: to person, place \T\ time. Mentation: is normal. Vital Signs: 00:45 BP 150 / 90; Pulse 100; Resp 18 S; Pulse Ox 97% on R/A; Weight 86.18 kg; Height 5 ft. 6 as6 in. (167.64 cm); Pain 10/10; 00:45 Body Mass Index 30.67 (86.18 kg, 167.64 cm) as6 MDM: 00:52 Patient medically screened. cp 01:30 Differential diagnosis: appendicitis, bowel obstruction, cholecystitis, gastritis, cp non-specific abd pain, pancreatitis, urinary tract infection. 02:37 Data reviewed: vital signs, nurses notes. cp 02:37 Counseling: I had a detailed discussion with the patient and/or guardian regarding: the cp historical points, exam findings, and any diagnostic results supporting the discharge/admit diagnosis. Response to treatment: the patient's symptoms have markedly improved after treatment, Nausea and pain markedly improved. Patient observed drinking Coke soda. Patient requesting discharge to home. 05/19 01:13 Order name: CMP cp 05/19 01:13 Order name: Lipase cp 05/19 01:50 Order name: CT Abd/Pelvis - Without Contrast cp 05/19 01:54 Order name: Abdomen EDMS 05/19 01:13 Order name: IV Saline Lock cp 05/19 01:13 Order name: Labs collected and sent cp 05/19 01:13 Order name: Urine Dipstick-Ancillary (obtain specimen) cp Administered Medications: 01:49 Not Given (Physician Discretion): Pepcid (famotidine) 20 mg IVP once; dilute with 10 mL cp 0.9% NaCl; give over 2 minutes 01:49 Not Given (Physician Discretion): Zofran (Ondansetron) 4 mg IVP once; over 2 minutes cp 02:05 Drug: Phenergan (promethazine) 25 mg Route: IM; Site: left ventrogluteal; 02:40 Drug: Dicyclomine 20 mg Route: IM; Site: left ventrogluteal; Disposition: 03:08 Co-signature as Attending Physician, Ramon Baker MD. rn Disposition Summary: 05/19/22 02:38 Discharge Ordered Location: Home cp Problem: new cp Symptoms: have improved cp Condition: Stable cp Diagnosis - Nausea with vomiting, unspecified cp Followup: cp - With: Private Physician - When: 1 - 2 days - Reason: Recheck today's complaints Discharge Instructions: - Discharge Summary Sheet cp - Nausea and Vomiting, Adult cp Forms: - Medication Reconciliation Form cp - Thank You Letter cp - Antibiotic Education cp - Prescription Opioid Use cp Prescriptions: - promethazine 25 mg Oral Tablet - take 1 tablet by ORAL route every 6 hours As needed; 20 tablet; Refills: 0, cp Product Selection Permitted - dicyclomine 20 mg Oral Tablet - take 1 tablet by ORAL route 4 times per day; 20 tablet; Refills: 0, Product cp Selection Permitted Signatures: Dispatcher [employer] Paige Pacheco RN RN kl Nieto, Roman, MD MD rn Page, Corey, PA PA cp Dayo Ko RN RN as6
--- NOTE | 2022-05-19 02:39 | ER ---
Nurse's Notes [facility] Name: Marjan Kolb Age: 67 yrs Sex: Female : 1955 Arrival Date: 05/19/2022 Time: 00:39 Bed 24 Private MD: Diagnosis: Nausea with vomiting, unspecified Presentation: 05/19 00:45 Chief complaint: EMS states: called out for abdominal pain. Coronavirus screen: At this as6 time, the client does not indicate any symptoms associated with coronavirus-19. Ebola Screen: No symptoms or risks identified at this time. Initial Sepsis Screen: Does the patient meet any 2 criteria? No. Patient's initial sepsis screen is negative. Does the patient have a suspected source of infection? No. Patient's initial sepsis screen is negative. Risk Assessment: Do you want to hurt yourself or someone else? Patient reports no desire to harm self or others. Onset of symptoms was May 18, 2022. 00:45 Method Of Arrival: EMS: [facility] as6 00:45 Acuity: BLAYNE 3 as6 Triage Assessment: 02:47 General: Appears in no apparent distress. Behavior is. Pain: Complains of pain in kl abdomen. GI: Reports lower abdominal pain, upper abdominal pain. Historical: - Allergies: 00:46 Azithromycin; as6 00:46 Bactrim; as6 00:46 butorphanol; as6 00:46 Fentanyl; as6 00:46 Reglan; as6 00:46 Sulfa (Sulfonamide Antibiotics); as6 00:46 TRIMETHOPRIM; as6 - PMHx: 00:46 Anxiety; Atrial fibrillation; Bipolar disorder; esophageal varicies; Hepatitis; HIV as6 positive; Hypertensive disorder; Migraine; panic attack; - Immunization history:: Client reports receiving the 2nd dose of the Covid vaccine. - Social history:: Smoking status: Patient/guardian denies using tobacco. Screenin:46 [facility] ED Fall Risk Assessment (Adult) History of falling in the last 3 months, including since admission No falls in past 3 months (0 pts) Confusion or Disorientation No (0 pts) Intoxicated or Sedated No (0 pts) Impaired Gait No (0 pts) Mobility Assist Device Used No (0 pt) Altered Elimination No (0 pt) Score/Fall Risk Level 0 - 2 = Low Risk Oriented to surroundings, Maintained a safe environment. Abuse screen: Denies threats or abuse. Nutritional screening: No deficits noted. Tuberculosis screening: No symptoms or risk factors identified. Assessment: 02:46 Reassessment: Patient appears in no apparent distress at this time. Patient is alert, kl oriented x 3, equal unlabored respirations, skin warm/dry/pink. Patient states feeling better. Patient states symptoms have improved. 02:48 GI: Bowel sounds present X 4 quads. kl 02:48 GI: Abdomen is tender to palpation. Vital Signs: 00:45 BP 150 / 90; Pulse 100; Resp 18 S; Pulse Ox 97% on R/A; Weight 86.18 kg; Height 5 ft. 6 as6 in. (167.64 cm); Pain 10/10; 00:45 Body Mass Index 30.67 (86.18 kg, 167.64 cm) as6 ED Course: 00:39 Patient arrived in ED. ja2 00:41 Justus Neil PA is PHCP. cp 00:41 Ramon Baker MD is Attending Physician. cp 00:46 Triage completed. as6 00:46 Arm band placed on. as6 02:41 Abdomen In Process Unspecified. EDMS 02:46 No provider procedures requiring assistance completed. Missed attempt(s): 22 gauge in kl left antecubital area. 02:47 Patient did not have IV access during this emergency room visit. kl 02:48 Patient has correct armband on for positive identification. kl Administered Medications: 01:49 Not Given (Physician Discretion): Pepcid (famotidine) 20 mg IVP once; dilute with 10 mL cp 0.9% NaCl; give over 2 minutes 01:49 Not Given (Physician Discretion): Zofran (Ondansetron) 4 mg IVP once; over 2 minutes cp 02:05 Drug: Phenergan (promethazine) 25 mg Route: IM; Site: left ventrogluteal; kl 02:40 Drug: Dicyclomine 20 mg Route: IM; Site: left ventrogluteal; Medication: 02:48 VIS not applicable for this client. Outcome: 02:38 Discharge ordered by . cp 02:47 Discharged to home ambulatory. kl 02:47 Condition: stable 02:47 Discharge instructions given to patient, family, Instructed on discharge instructions, follow up and referral plans. medication usage, Demonstrated understanding of instructions, follow-up care, medications, Prescriptions given X 1. 02:49 Patient left the ED. kl Signatures: Dispatcher [employer] EDMS Paige De Jesus RN RN Justus Moura PA PA cp Alexander, Jessica ja2 Slawson, Ashby, RN RN as6
[2022-05-19 03:10] VITALS: BP 150/90; O2SAT 97
[2022-05-19 04:07] LABS: Albumin 3.3 g/dL (3.4-5.0); Bilirubin Total 0.5 mg/dL (0.2-1.0); Potassium 3.2 mmol/L (3.5-5.1); Protein, Total 7.1 g/dL (6.4-8.2)
--- NOTE | 2022-05-19 15:18 | RAD REPORT ---
EXAM DESCRIPTION: CT - Abdomen Pelvis Wo Contrast - 05/19/2022 6:50 am CLINICAL HISTORY: The patient is 67 years old and is Female; abdominal pain TECHNIQUE: Axial computed tomography images of the abdomen and pelvis without intravenous contrast. Sagittal and coronal reformatted images were created and reviewed. This CT exam was performed usi ng one or more of the following dose reduction techniques: automated exposure control, adjustment o f the mA and/or kV according to patient size, and/or use of iterative reconstruction technique. COMPARISON: May 04, 2022 FINDINGS: Lung bases: Unremarkable. No mass. No consolidation. ABDOMEN: Liver: Unremarkable. Gallbladder and bile ducts: Gallbladder is surgically absent. No ductal dilation. Pancreas: Unremarkable. No ductal dilation. Spleen: Mild splenomegaly. Adrenals: Unremarkable. No mass. Kidneys and ureters: Simple cysts in the kidneys. ACR White Paper guidelines (Grant, et al. JACR 2018; 15(2):264-273) suggest no follow-up is necessary. No obstructing stones. No hydronephrosis. Stomach and bowel: Unremarkable. No obstruction. No mucosal thickening. PELVIS: Appendix: No findings to suggest acute appendicitis. Bladder: Unremarkable. Reproductive: Unremarkable as visualized. ABDOMEN and PELVIS: Intraperitoneal space: Unremarkable. No free air. No significant fluid collection. Bones/joints: 4 mm of anterolisthesis of L5 on S1. Small disc bulge at L4-5. No acute fracture. No dislocation. Soft tissues: Unremarkable. Vasculature: Scattered atherosclerotic vascular calcifications. No abdominal aortic aneurysm. Lymph nodes: Unremarkable. No enlarged lymph nodes. IMPRESSION: No acute finding in the abdomen/pelvis. Electronically signed by: Karan Cabezas MD 05/19/2022 3:12 AM [employer] [employer] Due to temporary technical issues with the PACS/Fluency reporting system, reports are being signed by the in house radiologists without review as a courtesy to insure prompt reporting. The interpreting radiologist is fully responsible for the content of the report.
== END 2022-05-19 02:49 | disposition home or self-care (01) ==
LOC: ER 00:35
DX: R11.2 Nausea with vomiting, unspecified (principal); I10 Essential (primary) hypertension; Z21 Asymptomatic human immunodeficiency virus [HIV] infection status; Z88.1 Allergy status to other antibiotic agents; Z88.2 Allergy status to sulfonamides; Z88.5 Allergy status to narcotic agent; Z88.8 Allergy status to other drugs, medicaments and biological substances
CPT/HCPCS: 83690; 80053; 74176; J2550; J0500

== ENCOUNTER 2022-06-01 15:43 | Emergency (ER) | payer OTHER ==
--- OUTSIDE RECORDS SUMMARY | 2022-06-01 16:03 | XMS REPORT | Continuity of Care Document ---
:1955 Author Organization [facility] t Address [address] [place] [address] Care Team Providers Name Role Phone Urmila Rahman Primary Care Physician ELAN LIRA Attending Clinician Unavailable KINJALBEVERLY Attending Clinician Unavailable SANTIAGO CARDENAS Attending Clinician Unavailable Santiago Sanchez Attending Clinician HOME MATTHEWS Attending Clinician Unavailable Home Santamaria Attending Clinician THERESA HICKMAN Attending Clinician Unavailable Theresa Hickman DO Attending Clinician ANETTE OLEA Attending Clinician Unavailable Anette Olea MD Attending Clinician PAULETTE GRAY Attending Clinician Unavailable Isaac PAC, Paulette S Attending Clinician UNKNOWN, ATTENDING Attending Clinician Unavailable Robbi Bal Attending Clinician [facility] Attending Clinician Unavailable Isaias Whiteside RN Attending Clinician Unavailable TOMY MARIE Attending Clinician Unavailable Reilly Means MD Attending Clinician Ofe Shields MD Attending Clinician Tomy Marie MD Attending Clinician Doctor Unassigned, [place] Attending Clinician Unavailable Bill COLES Attending Clinician Unavailable Bill Rose Attending Clinician CHARITY MCALLISTER Attending Clinician Unavailable Charity Mcallister MD Attending Clinician GADIEL KOEHLER Attending Clinician Unavailable Mike Lund Attending Clinician Unavailable NIKOLAI REEVES Attending Clinician Unavailable Eliseo Arce MD Attending Clinician Carol Ann IZQUIERDO, Sarai Lieberman Attending Clinician [phone] Ashly Pelletier MA Attending Clinician Unavailable Dagoberto Bass MD Attending Clinician [place] Evangelista Attending Clinician Lab, [facility] Pob I Attending Clinician Unavailable Monica Rodas MA Attending Clinician Unavailable Agustina Ortiz MA Attending Clinician Unavailable Rody Maguire RN Attending Clinician Unavailable Remigio MD, Saraswathi V. Attending Clinician HEMATPOUR, BEVERLY Attending Clinician Unavailable Caridad SALGUERO, Gloria Attending Clinician Xiao RAMIREZ, Michael Corbin Attending Clinician Unavailable Team, [facility] Attending Clinician UnavailDO PORSHA Newell Attending Clinician Unavailable Gadiel Koehler MD Attending Clinician Tyrone JENKINS, Eveline Sierra Attending Clinician Eladio Colorado RN Attending Clinician Unavailable Geraldine SALGUERO, Leyda Attending Clinician [phone] Selvin RAMIREZ, Stefanie Attending Clinician Unavailable [...] Date Expiration Date S gabino [facility] COMMUNITY PLAN [id number] 2012 STAR PLUS OON 00:00:00 [facility] [id number] 2019 DUAL COMPLETE HMO 00:00:00 [facility] [id number] 2019 PLUS 00:00:00 [facility] [id number] 2019 [facility] [place] [facility] 00:00:00 [employer] MEDICARE ADV [id number] 2019 2019 00:00:00 00:00:00 Problems Condition Condition Condition Status Onset Resolution Last Treating Co mments Source Name Details Category Date Date Treatment Clinician Date Dyspnea, Dyspnea, Disease Active Unive rs unspecifie unspecifie 02-11 it y of d type d type 00:00: [place] [address] Medical Branch Gastropare Gastropare Disease Active Overview : Methodi sis sis 4-[address] 00:00: [facility] note l might be different from the original. Added automatic ally from request for surgery [id number] Dysphagia Dysphagia Disease Active Overview: Methodi 4-[address] 00:00: g [facility] 00 note l might be different from the original. Added automatic ally from request for surgery [id number] CCL / EPS CCL / EPS Diagnosis Active 2020-10-15 Get PVI PVI 3-30 17:07:00 l ABLATION ABLATION 00:00: Patel n W/ CARTO / W/ CARTO / 00 GA / T GA / T Active 08/19/2020 [facility] Food Food Disease Active 2019-05 [...] 1-25 Clear 00:00: Garcia 00 [facility] trimetho DA Active [facility] prim 1-25 Clear 00:00: Garcia [facility] codeine DA Active SV N/V [facility] 1-25 Clear 00:00: Garcia [facility] Metoclop Propensi Active [place] ramide ty to 12-12 Health adverse 00:00: reaction 00 s BUTORPHA DRUG Active Unknown-Cmnt Un matt NOL INGREDI 11-25 ity of 00:00: [place] [facility] Butorpha Drug Active Unknown [...] 2017- Univers INGREDI 2-08 ity of 00:00: [place] [facility] TRIMETHO DRUG Active Hives Univers [...] Stop Date Source Natural father Diabetes [facility] Natural father Other - see comments [facility] Natural father Coronary Heart [facility] [place] Disease [facility] Natural [facility] Natural mother [facility] Social History Social Habit Start Date Stop Date Quantity Comments Source History SDOH [facility] Alcohol Frequency Hospita l History SDOH [facility] Alcohol Std Drinks Hospit al History SDWV [facility] Exposure to 2022-04-30 2022-05-10 Yes University of SARS-CoV-2 (event) 00:00:00 10:25:00 [facility] Tobacco use and 2022-02-11 2022-02-11 Former smokeless Uni versity of exposure 00:00:00 00:00:00 tobacco user [facility] Tobacco Comment 2022-02-11 2022-02-11 Smokes approx 1-2 Un iversity of 00:00:00 00:00:00 cigarettes per [facility] day when she Branch smokes Alcohol intake 2020-12-08 2020-12-08 Current drinker [facility] 00:00:00 00:00:00 of [facility] (finding) Cigarettes smoked 2020-09-05 2020-09-[address] current (pack per 00:00[facility]00 [facility] - Reported Cigarette 2020-09-05 2020-09-05 [facility] pack-years 00:00:00 00:00:00 Hospital Alcohol Comment 2016-09-23 2016-09-23 rare [facility] 00:00:00 00:00:00 Hospital History of tobacco 2011-09-29 User of smokeless University of use 00:00:00 tobacco [facility] Sex Ass[birth year] At [birth year] [facility] 00:00:00 00:00:00 Smoking Status Start Date Stop Date Source Ex-smoker 2022-02-11 00:00:00 2022-02-11 00:00:00 Universi ty of [facility] Medications Ordered Filled Start Stop Current Ordering Indication Dosage Frequency Signature Comments Components Source Medication Medication Date Date Medication? Clinician (SIG) Name Name potassium 2021-05- No 10meq 10 mEq, IV Univers chloride in 07-11 Piggyback, i ty of water 10 20:00: 22:00 ONCE, 1 [place] mEq/100 mL 00 :00 dose, On Medic al RTU 10 mEq [facility] 05/10/22 at 1400, Administer over 60 Minutes, 100 mL magnesium 2021-05 No 800mg 800 mg, Uni vers oxide 07-11 Oral, ity of (MAG-OX 20:00: 19:37 ONCE, 1 [place] 400) tablet 00 :00 dose, On Medi porfirio 800 mg [facility] 05/10/22 at 1400, Routine KCL 2021-05- No 40meq 40 mEq, Univers (KLOR-CON 07-11 Oral, ity of M20) tablet 19:15: 19:37 ONCE, 1 [place] 40 mEq 00 :00 dose, On Medical [facility] 05/10/22 at 1315, JOE hydralAZINE 2021-05- No 10mg 10 mg, Uni vers (APRESOLINE 07-11 Slow IV ity of ) injection 18:45: 18:42 [place] 10 mg 00 :00 ONCE, 1 Medical dose, On [facility] 05/10/22 at 1245, JOE NaCl 0.9% 2021-05- No 1000mL at 999 Uni vers (NS) bolus 07-11 mL/hr, ity of infusion 17:45: 20:00 1,000 mL, [place] 1,000 mL 00 :00 IV Medical Infusion, Branch ONCE, 1 dose, On [facility] 05/10/22 at 1145, JOE cefpodoxime 2021-05- Yes [id number] 100mg Take 1 Univers 100 mg 2-17 12-25 tablet by ity of tablet 00:00: 05:59 mouth in [place] 00 :00 the [facility] Branch and 1 tablet in the evening. Do all this for 7 days. cefpodoxime 2021-05- Yes [id number] 100mg Take 1 Univers 100 mg 2-17 12-25 tablet by ity of tablet 00:00: 05:59 mouth in [place] 00 :00 the [facility] morning Branch and 1 tablet in the evening. Do all this for 7 days. cefpodoxime 2021-05- Yes [id number] 100mg Take 1 Univers 100 mg 2-17 12-25 tablet by ity of tablet 00:00: 05:59 mouth in [place] 00 :00 the Medical morning Branch and [...] Infusion, Medical ONCE, 1 Branch dose, On [facility] 05/06/22 at 1800, JOE ketorolac 2021-05 No 15mg 15 mg, Unive rs (TORADOL) 2-15 12-15 Slow IV ity of injection 22:00: 22:19 Push, [place] 15 mg 00 :00 ONCE, 1 Medical dose, On Branch [facility] 05/06/22 at 1600, JOE NaCl 0.9% 2021-05- No 1000mL at 999 Uni vers (NS) bolus 2-15 12-15 mL/hr, ity of infusion 22:00: 23:41 1,000 mL, [place] 1,000 mL 00 :00 IV Medical Infusion, Branch ONCE, 1 dose, On [facility] 05/06/22 at 1600, JOE ondansetron 2021-05- No 8mg 8 mg, Slow Univers (ZOFRAN 2-15 12-15 IV Push, ity of (PF)) 21:15: 22:19 ONCE, 1 [place] injection 8 00 :00 dose, On Medi porfirio mg [place] 05/06/22 at 1515, JOE ondansetron 2021-05 Yes [id number] 1-2 U nivers 4 mg tablet 2-15 tablets ity o f 00:00: every 8 [place] 00 hours as Medical needed for Branch nausea benzonatate 2021-05 Yes [id number] 200mg Take 1 Univers 200 mg 2-15 capsule by ity of capsule 00:00: mouth 3 [place] 00 (three) Medical times Branch daily as needed for Cough. albuterol 2021-05 Yes [id number] 2{puff} Inhale 2 Univers 90 2-15 Puffs ity of mcg/actuati 00:00: every 4 [place] on inhaler 00 (four) Medical hours as Branch needed for Wheezing or Shortness of Breath. butalbital- 2021-05 Yes [id number] 1{tbl} Take 1 Univers acetaminoph 2-15 tablet by ity of en-caff 00:00: mouth [place] 50-325-40 00 every 4 Medical mg tablet (four) Branch hours as needed (headache) . ondansetron 2021-05 Yes [id number] 1-2 U nivers 4 mg tablet 2-15 tablets ity o f 00:00: every 8 [place] 00 hours as Medical needed for Branch nausea benzonatate 2021-05 Yes [id number] 200mg Take 1 Univers 200 mg 2-15 capsule by ity of capsule 00:00: mouth 3 [place] 00 (three) Medical times Branch daily as needed for Cough. albuterol 2021-05 Yes [id number] 2{puff} Inhale 2 Univers 90 2-15 Puffs ity of mcg/actuati 00:00: every 4 [place] on inhaler 00 (four) Medical hours as Branch needed for Wheezing or Shortness of Breath. butalbital- 2021-05 Yes [id number] 1{tbl} Take 1 Univers acetaminoph 2-15 tablet by ity of en-caff 00:00: mouth [place] 50-325-40 00 every 4 Medical mg tablet (four) Branch hours as needed (headache) . ondansetron 2021-05 Yes [id number] 1-2 U nivers 4 mg tablet 2-15 tablets ity o f 00:00: every 8 [place] 00 hours as Medical needed for Branch nausea benzonatate 2021-05 Yes [id number] 200mg Take 1 Univers 200 mg 2-15 capsule by ity of capsule 00:00: mouth 3 [place] 00 (three) Medical times Branch daily as needed for Cough. albuterol 2021-05 Yes [id number] 2{puff} Inhale 2 Univers 90 2-15 Puffs ity of mcg/actuati 00:00: every 4 [place] on inhaler 00 (four) Medical hours as Branch needed for Wheezing or Shortness of Breath. butalbital- 2021-05 Yes [id number] 1{tbl} Take 1 Univers acetaminoph 2-15 tablet by ity of en-caff 00:00: mouth [place] 50-325-40 00 every 4 Medical mg tablet (four) Branch hours as needed (headache) . ondansetron 2021-05 Yes [id number] 1-2 U nivers 4 mg tablet 2-15 tablets ity o f 00:00: every 8 [place] 00 hours as Medical needed for Branch nausea benzonatate 2021-05 Yes [id number] 200mg Take 1 Univers 200 mg 2-15 capsule by ity of capsule 00:00: mouth 3 [place] 00 (three) Medical times Branch daily as needed for Cough. albuterol 2021-05 Yes [id number] 2{puff} Inhale 2 Univers 90 2-15 Puffs ity of mcg/actuati 00:00: every 4 [place] on inhaler 00 (four) Medical hours as Branch needed for Wheezing or Shortness of Breath. butalbital- 2021-05 Yes [id number] 1{tbl} Take 1 Univers acetaminoph 2-15 tablet by ity of en-caff 00:00: mouth [place] 50-325-40 00 every 4 Medical mg tablet (four) Branch hours as needed (headache) . ondansetron 2021-05 Yes [id number] 1-2 U nivers 4 mg tablet 2-15 tablets ity o f 00:00: every 8 [place] 00 hours as Medical needed for Branch nausea benzonatate 2021-05 Yes [id number] 200mg Take 1 Univers 200 mg 2-15 capsule by ity of capsule 00:00: mouth 3 [place] 00 (three) Medical times Branch daily as needed for Cough. albuterol 2021-05 Yes [id number] 2{puff} Inhale 2 Univers 90 2-15 Puffs ity of mcg/actuati 00:00: every 4 [place] on inhaler 00 (four) Medical hours as Branch needed for Wheezing or Shortness of Breath. butalbital- 2021-05 Yes [id number] 1{tbl} Take 1 Univers acetaminoph 2-15 tablet by ity of en-caff 00:00: mouth [place] 50-325-40 00 every 4 Medical mg tablet (four) Branch hours as needed (headache) . ondansetron 2021-05 Yes [id number] 1-2 U nivers 4 mg tablet 2-15 tablets ity o f 00:00: every 8 [place] 00 hours as Medical needed for Branch nausea benzonatate 2021-05 Yes [id number] 200mg Take 1 Univers 200 mg 2-15 capsule by ity of capsule 00:00: mouth 3 [place] 00 (three) Medical times Branch daily as needed for Cough. albuterol 2021-05 Yes [id number] 2{puff} Inhale 2 Univers 90 2-15 Puffs ity of mcg/actuati 00:00: every 4 [place] on inhaler 00 (four) Medical hours as Branch needed for Wheezing or Shortness of Breath. butalbital- 2021-05 Yes [id number] 1{tbl} Take 1 Univers acetaminoph 2-15 tablet by ity of en-caff 00:00: mouth [place] 50-325-40 00 every 4 Medical mg tablet (four) Branch hours as needed (headache) . nirmatrelvi 2021-05- Yes [id number] 2{tbl} Take 2 Univers r-ritonavir 2-15 12-21 tablets by i ty of (PAXLOVID, 00:00: 05:59 mouth in [place] EUA,) 300 00 :00 the Medical mg (150 mg morning Branch x 2)-100 mg and 2 tablet tablets in the evening. Do all this for 5 days. nirmatrelvi 2021-05- Yes [id number] 2{tbl} Take 2 Univers r-ritonavir 2-15 12-21 tablets by i ty of (PAXLOVID, 00:00: 05:59 mouth in [place] EUA,) 300 00 :00 the Medical mg (150 mg morning Branch x 2)-100 mg and 2 tablet tablets in the evening. Do all this for 5 days. nirmatrelvi 2021-05- Yes [id number] 2{tbl} Take 2 Univers r-ritonavir 2-15 12-21 tablets by i ty of (PAXLOVID, 00:00: 05:59 mouth in [place] EUA,) 300 00 :00 the Medical mg (150 mg morning Branch x 2)-100 mg and 2 tablet tablets in the evening. Do all this for 5 days. nirmatrelvi 2021-05- Yes [id number] 2{tbl} Take 2 Univers r-ritonavir 2-15 - tablets by i ty of (PAXLOVID, 00:00: [...] 04/22/22 at 1645, Routine amoxicillin 2021-05 Yes [id number] 1{tbl} Take 1 Univers -clavulanat 2- [id number] tablet by i ty of e 875-125 00:00: mouth [place] mg per 00 every 12 Medical tablet (twelve) Branch hours. ondansetron 2021-05 Yes [id number] 4mg Take 1 Univers 4 mg 2- 133066 tablet by ity of disintegrat 00:00: mouth [place] ing tablet 00 every 8 Medica l (eight) Branch hours as needed for Nausea and Vomiting (N/V). amoxicillin 2021-05 Yes [id number] 1{tbl} Take 1 Univers -clavulanat 2- [id number] tablet by i ty of e 875-125 00:00: mouth [place] mg per 00 every 12 Medical tablet (twelve) Branch hours. ondansetron 2021-05 Yes [id number] 4mg Take 1 Univers 4 mg 2-01 [id number] tablet by ity of disintegrat 00:00: mouth [place] ing tablet 00 every 8 Medica l (eight) Branch hours as needed for Nausea and Vomiting (N/V). amoxicillin 2021-05 Yes [id number] 1{tbl} Take 1 Univers -clavulanat 2-01 [id number] tablet by i ty of e 875-125 00:00: mouth [place] mg per 00 every 12 Medical tablet (twelve) Branch hours. ondansetron 2021-05 Yes [id number] 4mg Take 1 Univers 4 mg 2-01 [id number] tablet by ity of disintegrat 00:00: mouth [place] ing tablet 00 every 8 Medica l (eight) Branch hours as needed for Nausea and Vomiting (N/V). amoxicillin 2021-05 Yes [id number] 1{tbl} Take 1 Univers -clavulanat 2-01 [id number] tablet by i ty of e 875-125 00:00: mouth [place] mg per 00 every 12 Medical tablet (twelve) Branch hours. ondansetron 2021-05 Yes [id number] 4mg Take 1 Univers 4 mg 2-01 [id number] tablet by ity of disintegrat 00:00: mouth [place] ing tablet 00 every 8 Medica l (eight) Branch hours as needed for Nausea and Vomiting (N/V). amoxicillin 2021-05 Yes [id number] 1{tbl} Take 1 Univers -clavulanat 2-01 [id number] tablet by i ty of e 875-125 00:00: mouth [place] mg per 00 every 12 Medical tablet (twelve) Branch hours. ondansetron 2021-05 Yes [id number] 4mg Take 1 Univers 4 mg 2- [id number] tablet by ity of disintegrat 00:00: mouth [place] ing tablet 00 every 8 Medica l (eight) Branch hours as needed for Nausea and Vomiting (N/V). amoxicillin 2021-05 Yes [id number] 1{tbl} Take 1 Univers -clavulanat 2-01 [id number] tablet by i ty of e 875-125 00:00: mouth [place] mg per 00 every 12 Medical tablet (twelve) Branch hours. ondansetron 2021-05 Yes [id number] 4mg Take 1 Univers 4 mg 2-01 [id number] tablet by ity of disintegrat 00:00: mouth [place] ing tablet 00 every 8 Medica l (eight) Branch hours as needed for Nausea and Vomiting (N/V). amoxicillin 2021-05 Yes [id number] 1{tbl} Take 1 Univers -clavulanat 2-01 [id number] tablet by i ty of e 875-125 00:00: mouth [place] mg per 00 every 12 Medical tablet (twelve) Branch hours. ondansetron 2021-05 Yes [id number] 4mg Take 1 Univers 4 mg 2-01 [id number] tablet by ity of disintegrat 00:00: mouth [place] ing tablet 00 every 8 Medica l (eight) Branch hours as needed for Nausea and Vomiting (N/V). amoxicillin 2021-05 Yes [id number] 1{tbl} Take 1 Univers -clavulanat 06-23 [id number] tablet by i ty of e 875-125 00:00: mouth [place] mg per 00 every 12 Medical tablet (twelve) Branch hours. ondansetron 2021-05 Yes [id number] 4mg Take 1 Univers 4 mg 06-23 [id number] tablet by ity of disintegrat 00:00: mouth [place] ing tablet 00 every 8 Medica l (eight) Branch hours as needed for Nausea and Vomiting (N/V). zoster 2021-05- Yes [id number] .5mL 0.5 mL by Univers vaccine, 0-14 10-15 9104 Intramuscu ity of recombinant 00:00: 04:59 lar route [place] (SHINGRIX, 00 :00 once now Medic al PF,) for 1 Branch injection dose. And repeat in 2-6 months zoster 2021-05- No [id number] .5mL 0.5 mL by Univers vaccine, 0-14 10-15 9104 Intramuscu ity of recombinant 00:00: 04:59 lar route [place] (SHINGRIX, 00 :00 once now Medic al PF,) for 1 Branch injection dose. And repeat in 2-6 months zoster 2021-05- No [id number] .5mL 0.5 mL by Univers vaccine, 0-14 [...] o f 1 mg tablet 19:28: at [place] [address] bedtime. Medical Branch traZODone 2021-0 Yes 50mg Take 50 mg Un matt 100 mg 9-27 by mouth ity of tablet 19:28: at [place] [address] bedtime. Medical Branch hydralAZINE 2021-0 Yes 25mg [...] 100 mg 04 (two) Medical tablet times [place] daily. amLODIPine 2021-0 Yes 10mg Take 10 mg U nivers (NORVASC) 9-27 by mouth ity of 10 mg 19:28: daily. [place] tablet 04 Medical Branch clonazePAM 2021-0 Yes 1mg Take 1 mg Un matt (KLONOPIN) 9-27 by mouth ity o f 1 mg tablet 19:28: at [place] [address] bedtime. Medical Branch traZODone 2021-0 Yes 50mg Take 50 mg Un matt 100 mg 9-27 by mouth ity of tablet 19:28: at [place] [address] bedtime. Medical Branch hydralAZINE 2021-0 Yes 25mg [...] o f 1 mg tablet 19:28: at [place] [address] bedtime. Medical Branch traZODone 2021-0 Yes 50mg Take 50 mg Un matt 100 mg 9-27 by mouth ity of tablet 19:28: at [place] [address] bedtime. Medical Branch hydralAZINE 2021-0 Yes 25mg [...] o f 1 mg tablet 19:28: at [place] [address] bedtime. Medical Branch traZODone 2021-0 Yes 50mg Take 50 mg Un matt 100 mg 9-27 by mouth ity of tablet 19:28: at [place] [address] bedtime. Medical Branch hydralAZINE 2021-0 Yes 25mg [...] o f 1 mg tablet 19:28: at [place] [address] bedtime. Medical Branch traZODone 2021-0 Yes 50mg Take 50 mg Un matt 100 mg 9- by mouth ity of tablet 19:28: at [place] [address] bedtime. Medical Branch hydralAZINE 2021-0 Yes 25mg [...] o f 1 mg tablet 19:28: at [place] [address] bedtime. Medical Branch traZODone 2022-0 Yes 50mg Take 50 mg Un matt 100 mg 9-27 by mouth ity of tablet 19:28: at [place] [address] bedtime. Medical Branch hydralAZINE 2-0 Yes 25mg [...] o f 1 mg tablet 19:28: at [place] [address] bedtime. Medical Branch traZODone 2-0 Yes 50mg Take 50 mg Un matt 100 mg 9-27 by mouth ity of tablet 19:28: at [place] [address] bedtime. Medical Branch hydralAZINE 2021-0 Yes 25mg [...] o f 1 mg tablet 19:28: at [place] [address] bedtime. Medical Branch traZODone 2022-0 Yes 50mg Take 50 mg Un matt 100 mg 9-27 by mouth ity of tablet 19:28: at [place] [address] bedtime. Medical Branch hydralAZINE 2-0 Yes 25mg [...] o f 1 mg tablet 19:28: at [place] [address] bedtime. Medical Branch traZODone 2-0 Yes 50mg Take 50 mg Un matt 100 mg 9-27 by mouth ity of tablet 19:28: at [place] [address] bedtime. Medical Branch hydralAZINE 2-0 Yes 25mg [...] o f 1 mg tablet 19:28: at [place] [address] bedtime. Medical Branch traZODone 2021-0 Yes 50mg Take 50 mg Un matt 100 mg 9-27 by mouth ity of tablet 19:28: at [place] [address] bedtime. Medical Branch hydralAZINE 2021-0 Yes 25mg [...] o f 1 mg tablet 19:28: at [place] [address] bedtime. Medical Branch traZODone 2021-0 Yes 50mg Take 50 mg Un matt 100 mg 9-27 by mouth ity of tablet 19:28: at [place] [address] bedtime. Medical Branch hydralAZINE 2021-0 Yes 25mg [...] o f 1 mg tablet 19:28: at [place] [address] bedtime. Medical Branch traZODone 2-0 Yes 50mg Take 50 mg Un matt 100 mg 9-27 by mouth ity of tablet 19:28: at [place] [address] bedtime. Medical Branch hydralAZINE 2-0 Yes 25mg [...] o f 1 mg tablet 19:28: at [place] [address] bedtime. Medical Branch traZODone 2021-0 Yes 50mg Take 50 mg Un matt 100 mg 9-27 by mouth ity of tablet 19:28: at [place] [address] bedtime. Medical Branch hydralAZINE 2021-0 Yes 25mg [...] o f 1 mg tablet 19:28: at [place] [address] bedtime. Medical Branch traZODone 2021-0 Yes 50mg Take 50 mg Un matt 100 mg 9-27 by mouth ity of tablet 19:28: at [place] [address] bedtime. Medical Branch hydralAZINE 2021-0 Yes 25mg [...] mouth ity of 10 mg 19:28: daily. [place] tablet 04 Medical Branch clonazePAM 2021-0 Yes 1mg Take 1 mg Un matt (KLONOPIN) 9-27 by mouth ity o f 1 mg tablet 19:28: at [place] [address] bedtime. Medical Branch traZODone 2021-0 Yes 50mg Take 50 mg Un matt 100 mg 9-27 by mouth ity of tablet 19:28: at [place] [address] bedtime. Medical Branch hydralAZINE 2021-0 Yes 25mg [...] 10mg Take 10 mg U nivers (NORVASC) 02-16 by mouth ity of 10 mg 19:28: daily. [place] tablet 04 Medical Branch clonazePAM Yes 1mg Take 1 mg Un matt (KLONOPIN) 02-16 by mouth ity o f 1 mg tablet 19:28: at [place] [address] bedtime. Medical Branch traZODone Yes 50mg Take 50 mg Un matt 100 mg 02-16 by mouth ity of tablet 19:28: at [place] [address] bedtime. Medical Branch cefpodoxime 2021- No [id number] 200mg Take 1 Univers 200 mg 02-16 tablet by ity of tablet 00:00: 04:59 mouth in [place] 00 :00 the Medical morning Branch and 1 tablet in the evening. Do all this for 3 days. cefpodoxime 2021- No [id number] 200mg Take 1 Univers 200 mg 02-16 tablet by ity of tablet 00:00: 04:59 mouth in [place] 00 :00 the Medical morning Branch and 1 tablet in the evening. Do all this for 3 days. haloperidol 2021- No 2mg 2 mg, Slow Univers lactate 02-15 IV Push, ity of (HALDOL) 09:00: 09:12 ONCE, 1 [place] injection 2 00 :00 dose, On Medi porfirio mg Mon Branch 02/15/22 at 0400, Routine hydroCHLORO Yes 25mg 25 mg, Univ ers thiazide 9-25 Oral, ity of (ESIDRIX) 14:00: DAILY, [place] capsule 25 00 First dose Med ical mg on Sun Branch 02/14/22 at 0900, Until Discontinu ed, Routine butalbital- Yes 1{tbl} 1 tablet, Univers acetaminoph - Oral, ity of en-caff 18:46: Q6HPRN, [place] (ESGIC) 06 Starting Medical 50-325-40 on Sat Branch mg tablet 1 02/13/22 at tablet 1346, Until Discontinu ed, Routine, headaches dicyclomine Yes 10mg 10 mg, Univ ers (BENTYL) 02-13 Oral, QID, ity o f capsule 10 17:00: First dose [place] mg 00 on Tue02/13/22 at Branch 1200, Until Discontinu ed, Routine [...] of 2,000 mg in 17:00: 18:24 Piggyback, [place] NaCl 0.9% 00 :00 Q24H ABX, Medic [...] (MYCOLOG) 19:00: dose on [place] cream [address] [facility] Medical 02/11/22 at Branch 1400, Until Discontinu ed, Routine busPIRone 202-0 Yes 30mg 30 mg, Univer s (BUSPAR) 02-11 Oral, BID, ity o f tablet 30 18:00: First dose [place] mg [address] [facility] Medical 02/11/22 at Branch 1300, Until Discontinu ed, Routine raltegravir 2021-0 Yes 400mg 400 mg, Un matt (ISENTRESS) 02-11 Oral, BID, it y of tablet 400 18:00: First dose [place] mg [address] [facility] Medical 02/11/22 at Branch 1300, Until Discontinu ed, JOE metoprolol 2021-0 Yes 100mg 100 mg, Uni vers tartrate 02-11 Oral, BID, ity o f (LOPRESSOR) 18:00: First dose [place] tablet 100 00 on [facility] mg 02/11/22 at Branch 1300, Until Discontinu ed, Routine lisinopriL 2021-0 Yes 40mg 40 mg, Unive rs (PRINIVIL,Z 02-11 Oral, BID, it y of ESTRIL) 18:00: [place] 40 00 on [facility] mg 02/11/22 at Branch 1300, Until Discontinu ed, Routine emtricitabi 2021-0 Yes 1{tbl} 1 tablet[facility] [place] [facility] Oral, ity of r alafen 18:00: DAILY, [place] (DESCOVY) 00 First dose Medi porfirio tablet 1 on [facility] tablet 02/11/22 at 1300, Until Discontinu ed, Routine ipratropium 2021-0 Yes .5mg 0.5 mg, Uni vers (ATROVENT) 02-11 Inhalation ity of 0.02 % 17:57: , MERY, [place] nebulizer 10 Starting Medica l solution on [facility] Branch 0.5 mg 02/11/22 at 1257, Until Discontinu ed, Routine, Wheezing, Shortness of Breath amLODIPine 2021-0 Yes 10mg 10 mg, Unive rs (NORVASC) 02-11 Oral, ity of tablet 10 17:30: DAILY, [place] mg 00 First dose Medical (after Branch last modificati on) on [place] 02/11/22 at 1230, Until Discontinu ed, Routine hydrALAZINE 2021- No 25mg 25 mg, Uni vers (APRESOLINE 02-11 Oral, ity of ) tablet 25 17:30: 12:54 DAILY, [place] mg 00 :55 First dose Medical (after Branch last modificati on) on [facility] 02/11/22 at 1230, Until Discontinu ed, Routine HYDROcodone 2021- No 1{tbl} 1 tablet, Univers -acetaminop 02-11 Oral, ity of hen (NORCO 14:11: 17:37 Q6HPRN, [place] 5) 5-325 mg 03 :24 Starting Medi porfirio tablet [address] [facility] Branch tablet 02/11/22 at 0911, Until Tue02/12/22 at 1237, Routine, Pain (scale 7-10) melatonin Yes 3mg 3 mg, Univers (MELATIN) 02-11 Oral, ity of tablet 3 mg 14:08: QHSPRN, [place] 17 Starting Medical on [facility] Branch 02/11/22 at 0908, Until Discontinu ed, Routine, Insomnia acetaminoph 2021- No 1{tbl} 1 tablet, Univers en-codeine 02-11 Oral, ity of (TYLENOL 14:06: 17:37 Q6HPN, [place] #3) 300-30 19 :24 Starting Medic al mg tablet [address] [facility] Branch tablet 02/11/22 at 0906, Until Tue02/12/22 at 1237, Routine, Pain (scale 4-6) sennosides- Yes 1{tbl} 1 tablet, Univers docusate 02-11 Oral, ity of sodium 14:06: QDAILYPRN, [place] (SENOKOT-S) 09 Starting Medi porfirio 8.6-[address] [facility] Branch per tablet 02/11/22 at 1 tablet 0906, Until Discontinu ed, Routine, Constipati on ondansetron Yes 4mg 4 mg, Slow Univers (ZOFRAN 02-11 IV Push, ity of (PF)) 14:05: Q6HPRN, [place] injection 4 59 Starting Medi porfirio mg on [place] Branch 02/11/22 at 0905, Until Discontinu ed, Routine, Nausea and Vomiting (N/V) acetaminoph Yes 650mg 650 mg, Un matt en 02-11 Oral, ity of (TYLENOL) 14:04: Q6HPRN, [place] tablet 650 37 Starting Medic al mg [...] ity of ) 25 mg 09:10: daily. [place] tablet 54 [facility] amLODIPine 0 Yes 10mg Take 10 mg U nivers (NORVASC) 02-11 by mouth ity of 10 mg 09:10: daily. [place] tablet 54 [facility] Branch piperacilli 2021- No 3.375g 3.375 [...]
D uration of therapy: 72 hours iopamidol 2- No [id number] 60mL 60 mL, Univers (ISOVUE 02-11 Intravenou [...] 00 :00 dose, On Medi porfirio mg [facility] Branch 02/11/22 at 0045, JOE acetaminoph 2021- No 975mg 975 mg, U nivers en 02-11 Oral, ity of (TYLENOL) 05:15: 04:19 ONCE, 1 [place] tablet 975 00 :00 dose, On Medic al mg [facility] Branch 02/11/22 at 0015, JOE emtricitabi 0 Yes [id number] Take one Univers ne-tenofovi 9-12 po daily ity of r alafen 00:00: [place] (DESCOVY) 00 Medical tablet Branch emtricitabi 0 Yes [id number] Take one Univers ne-tenofovi 9-12 po daily ity of r alafen 00:00: [place] (DESCOVY) Medical tablet Branch emtricitabi 0 Yes [id number] Take one Univers ne-tenofovi 9-12 po daily ity of r alafen 00:00: [place] (DESCOVY) 00 Medical tablet Branch emtricitabi 0 Yes [id number] Take one Univers ne-tenofovi 9-12 po daily ity of r alafen 00:00: [place] (DESCOVY) 00 Medical tablet Branch emtricitabi Yes [id number] Take one Univers ne-tenofovi 9-12 po daily ity of r alafen 00:00: [place] (DESCOVY) 00 Medical tablet Branch emtricita Yes [id number] Take one Univers ne-tenofovi 9-12 po daily ity of r alafen 00:00: [place] (DESCOVY) 00 Medical tablet Branch emtricita Yes [id number] Take one Univers ne-tenofovi 9-12 po daily ity of r alafen 00:00: [place] (DESCOVY) 00 Medical tablet Branch emtricita Yes [id number] Take one Univers ne-tenofovi 9-12 po daily ity of r alafen 00:00: [place] (DESCOVY) 00 Medical tablet Branch emtricita Yes [id number] Take one Univers ne-tenofovi 9-12 po daily ity of r alafen 00:00: [place] (DESCOVY) 00 Medical tablet Branch [facility] [id number] Take one Univers ne-tenofovi 9-12 po daily ity of r alafen 00:00: [place] (DESCOVY) 00 Medical tablet [facility] [id number] Take one Univers ne-tenofovi 9-12 po daily ity of r alafen 00:00: [place] (DESCOVY) 00 Medical tablet Branch emtricita Yes [id number] Take one Univers ne-tenofovi 9-12 po daily ity of r alafen 00:00: [place] (DESCOVY) 00 Medical tablet Branch emtricita Yes [id number] Take one Univers ne-tenofovi 9-12 po daily ity of r alafen 00:00: [place] (DESCOVY) 00 Medical tablet Branch emtricita Yes [id number] Take one Univers ne-tenofovi 9-12 po daily ity of r alafen 00:00: [place] (DESCOVY) 00 Medical tablet Branch emtricita Yes [id number] Take one Univers ne-tenofovi 9-12 po daily ity of r alafen 00:00: [place] (DESCOVY) 00 Medical tablet Branch emtricitabi 2021-0 Yes [id number] Take one Univers ne-tenofovi 9-12 po daily ity of r alafen 00:00: [place] (DESCOVY) Medical tablet Branch emtricitabi 2021-0 Yes [id number] Take one Univers ne-tenofovi 9-12 po daily ity of r alafen 00:00: [place] (DESCOVY) Medical tablet Branch naproxen 2021-0 Yes [id number] 500mg Take 1 U nivers (NAPROSYN) 7-24 tablet by ity of 500 mg 00:00: mouth in [place] tablet 00 the Medical morning Branch and 1 tablet in the evening. Take with meals. methocarbam 2021-0 Yes [id number] 500mg Take 1 Univers oL 500 mg 7-24 tablet by ity o f tablet 00:00: mouth 4 [place] [address] ([facility]) [facility] times [place] daily. naproxen 2021-0 Yes [id number] 500mg Take 1 U nivers (NAPROSYN) 7-24 tablet by ity of 500 mg 00:00: mouth in [place] tablet 00 the Medical morning Branch and 1 tablet in the evening. Take with meals. methocarbam 2021-0 Yes [id number] 500mg Take 1 Univers oL 500 mg 7-24 tablet by ity o f tablet 00:00: mouth 4 [place] ([facility]) [facility] times [place] daily. naproxen 2021-0 Yes [id number] 500mg Take 1 U nivers (NAPROSYN) 7-24 tablet by ity of 500 mg 00:00: mouth in [place] tablet 00 the Medical morning Branch and 1 tablet in the evening. Take with meals. methocarbam 2021-0 Yes [id number] 500mg Take 1 Univers oL 500 mg 7-24 tablet by ity o f tablet 00:00: mouth 4 [place] ([facility]) [facility] times [place] daily. naproxen 2021-0 2022- No [id number] 500mg Take 1 Univers (NAPROSYN) 7-24 10-14 tablet by ity of 500 mg 00:00: 00:00 mouth in [place] tablet 00 :00 the Medical morning Branch and 1 tablet in the evening. Take with meals. methocarbam 2021-0 2022- No [id number] 500mg Take 1 Univers oL 500 mg 7-24 10-14 tablet by ity of tablet 00:00: 00:00 mouth 4 [place] 00 :00 (four) Medical times Branch daily. naproxen 2021- No [id number] 500mg Take 1 Univers (NAPROSYN) 12-13 tablet by ity of 500 mg 00:00: 00:00 mouth in [place] tablet 00 :00 the Medical morning Branch and 1 tablet in the evening. Take with meals. methocarbam 2021- No [id number] 500mg Take 1 Univers oL 500 mg [...] ty of mg tablet 09:11: 00:00 (two) [place] 35 :00 times Medical daily. Branch traZODONE 2021- No Take by [facility] ers (DESYREL) 11-20 mouth at ity o f 10 mg/mL 09:10: 00:00 bedtime. [place] oral 28 :00 Medical suspension Branch hydralAZINE Yes 25mg Take 25 mg Univers (APRESOLINE 11-20 by mouth ity of ) 25 mg 08:47: daily. [place] tablet 47 Medical Branch cephALEXin 2021- No [id number] 500mg Take 1 Univers (KEFLEX) 10-24 capsule [...] (scale 7-10). Indication s: acute pain buPROPion 0 Yes [id number] 150mg Take 1 U nivers XL 4-12 tablet by ity of (WELLBUTRIN 00:00: mouth [place] XL) 150 mg 00 daily. Medical 24 hr Branch tablet busPIRone 2021-0 Yes [id number] 30mg Take 1 Un matt 30 mg 4-12 tablet by ity of tablet 00:00: mouth 2 [place] 00 (two) Medical times Branch daily. SERTraline 2021-0 Yes [id number] 200mg Take 2 Univers 100 mg 4-12 tablets by ity of tablet 00:00: mouth [place] 00 daily. Medical Branch buPROPion 0 Yes [id number] 150mg Take 1 U nivers XL 4-12 tablet by ity of (WELLBUTRIN 00:00: mouth [place] XL) 150 mg 00 daily. Medical 24 hr Branch tablet busPIRone 2021-0 Yes [id number] 30mg Take 1 Un matt 30 mg 4-12 tablet by ity of tablet 00:00: mouth 2 [place] 00 (two) Medical times Branch daily. SERTraline 2021-0 Yes [id number] 200mg Take 2 Univers 100 mg 4-12 tablets by ity of tablet 00:00: mouth [place] 00 daily. Medical Branch buPROPion 2021-0 Yes [id number] 150mg Take 1 U nivers XL 4-12 tablet by ity of (WELLBUTRIN 00:00: mouth [place] XL) 150 mg 00 daily. Medical 24 hr Branch tablet busPIRone 2021-0 Yes [id number] 30mg Take 1 Un matt 30 mg 4-12 tablet by ity of tablet 00:00: mouth 2 [place] 00 (two) Medical times Branch daily. SERTraline 2021-0 Yes [id number] 200mg Take 2 Univers 100 mg 4-12 tablets by ity of tablet 00:00: mouth [place] 00 daily. Medical Branch buPROPion 2021-0 Yes [id number] 150mg Take 1 U nivers XL 4-12 tablet by ity of (WELLBUTRIN 00:00: mouth [place] XL) 150 mg 00 daily. Medical 24 hr Branch tablet busPIRone 2021-0 Yes [id number] 30mg Take 1 Un matt 30 mg 4-12 tablet by ity of tablet 00:00: mouth 2 [place] 00 (two) Medical times Branch daily. SERTraline 0 Yes [id number] 200mg Take 2 Univers 100 mg 4-12 tablets by ity of tablet 00:00: mouth [place] 00 daily. Medical Branch buPROPion 0 Yes [id number] 150mg Take 1 U nivers XL 4-12 tablet by ity of (WELLBUTRIN 00:00: mouth [place] XL) 150 mg 00 daily. Medical 24 hr Branch tablet busPIRone 2021-0 Yes [id number] 30mg Take 1 Un matt 30 mg 4-12 tablet by ity of tablet 00:00: mouth 2 (two) Medical times Branch daily. SERTraline 0 Yes [id number] 200mg Take 2 Univers 100 mg 4-12 tablets by ity of tablet 00:00: mouth [place] 00 daily. Medical Branch buPROPion 0 Yes [id number] 150mg Take 1 U nivers XL 4-12 tablet by ity of (WELLBUTRIN 00:00: mouth [place] XL) 150 mg 00 daily. Medical 24 hr Branch tablet busPIRone 2021-0 Yes [id number] 30mg Take 1 Un matt 30 mg 4-12 tablet by ity of tablet 00:00: mouth 2 00 (two) Medical times Branch daily. SERTraline 2021-0 Yes [id number] 200mg Take 2 Univers 100 mg 4-12 tablets by ity of tablet 00:00: mouth [place] 00 daily. Medical Branch buPROPion 2021-0 Yes [id number] 150mg Take 1 U nivers XL 4-12 tablet by ity of (WELLBUTRIN 00:00: mouth [place] XL) 150 mg 00 daily. Medical 24 hr Branch tablet busPIRone 2021-0 Yes [id number] 30mg Take 1 Un matt 30 mg 4-12 tablet by ity of tablet 00:00: mouth 2 00 (two) Medical times Branch daily. SERTraline 2021-0 Yes [id number] 200mg Take 2 Univers 100 mg 4-12 tablets by ity of tablet 00:00: mouth [place] 00 daily. Medical Branch buPROPion 2021-0 Yes [id number] 150mg Take 1 U nivers XL 4-12 tablet by ity of (WELLBUTRIN 00:00: mouth [place] XL) 150 mg 00 daily. Medical 24 hr Branch tablet busPIRone 2021-0 Yes [id number] 30mg Take 1 Un matt 30 mg 4-12 tablet by ity of tablet 00:00: mouth 2 [place] 00 (two) Medical times Branch daily. SERTraline 2021-0 Yes [id number] 200mg Take 2 Univers 100 mg 4-12 tablets by ity of tablet 00:00: mouth [place] 00 daily. Medical Branch buPROPion 2021-0 Yes [id number] 150mg Take 1 U nivers XL 4-12 tablet by ity of (WELLBUTRIN 00:00: mouth [place] XL) 150 mg 00 daily. Medical 24 hr Branch tablet busPIRone 2021-0 Yes [id number] 30mg Take 1 Un matt 30 mg 4-12 tablet by ity of tablet 00:00: mouth 2 [place] (two) Medical times Branch daily. SERTraline 2021-0 Yes [id number] 200mg Take 2 Univers 100 mg 4-12 tablets by ity of tablet 00:00: mouth [place] 00 daily. Medical Branch buPROPion 2021-0 Yes [id number] 150mg Take 1 U nivers XL 4-12 tablet by ity of (WELLBUTRIN 00:00: mouth [place] XL) 150 mg 00 daily. Medical 24 hr Branch tablet busPIRone 2021-0 Yes [id number] 30mg Take 1 Un matt 30 mg 4-12 tablet by ity of tablet 00:00: mouth 2 [place] 00 (two) Medical times Branch daily. SERTraline 2021-0 Yes [id number] 200mg Take 2 Univers 100 mg 4-12 tablets by ity of tablet 00:00: mouth [place] 00 daily. Medical Branch buPROPion 2021-0 Yes [id number] 150mg Take 1 U nivers XL 4-12 tablet by ity of (WELLBUTRIN 00:00: mouth [place] XL) 150 mg 00 daily. Medical 24 hr Branch tablet busPIRone 2021-0 Yes [id number] 30mg Take 1 Un matt 30 mg 4-12 tablet by ity of tablet 00:00: mouth 2 [place] 00 (two) Medical times Branch daily. SERTraline 2021-0 Yes [id number] 200mg Take 2 Univers 100 mg 4-12 tablets by ity of tablet 00:00: mouth [place] 00 daily. Medical Branch buPROPion 2021-0 Yes [id number] 150mg Take 1 U nivers XL 4-12 tablet by ity of (WELLBUTRIN 00:00: mouth [place] XL) 150 mg 00 daily. Medical 24 hr Branch tablet busPIRone 2021-0 Yes [id number] 30mg Take 1 Un matt 30 mg 4-12 tablet by ity of tablet 00:00: mouth 2 [place] 00 (two) Medical times Branch daily. SERTraline 2021-0 Yes [id number] 200mg Take 2 Univers 100 mg 4-12 tablets by ity of tablet 00:00: mouth [place] 00 daily. Medical Branch buPROPion 2021-0 Yes [id number] 150mg Take 1 U nivers XL 4-12 tablet by ity of (WELLBUTRIN 00:00: mouth [place] XL) 150 mg 00 daily. Medical 24 hr Branch tablet busPIRone 2021-0 Yes [id number] 30mg Take 1 Un matt 30 mg 4-12 tablet by ity of tablet 00:00: mouth 2 00 (two) Medical times Branch daily. SERTraline 2021-0 Yes [id number] 200mg Take 2 Univers 100 mg 4-12 tablets by ity of tablet 00:00: mouth [place] 00 daily. Medical Branch buPROPion 2021-0 Yes [id number] 150mg Take 1 U nivers XL 4-12 tablet by ity of (WELLBUTRIN 00:00: mouth [place] XL) 150 mg 00 daily. Medical 24 hr Branch tablet busPIRone 2021-0 Yes [id number] 30mg Take 1 Un matt 30 mg 4-12 tablet by ity of tablet 00:00: mouth 2 [place] 00 (two) Medical times Branch daily. SERTraline 2021-0 Yes [id number] 200mg Take 2 Univers 100 mg 4-12 tablets by ity of tablet 00:00: mouth [place] 00 daily. Medical Branch buPROPion 2021-0 Yes [id number] 150mg Take 1 U nivers XL 4-12 tablet by ity of (WELLBUTRIN 00:00: mouth [place] XL) 150 mg 00 daily. Medical 24 hr Branch tablet busPIRone 2021-0 Yes [id number] 30mg Take 1 Un matt 30 mg 4-12 tablet by ity of tablet 00:00: mouth 2 [place] 00 (two) Medical times Branch daily. SERTraline 2021-0 Yes [id number] 200mg Take 2 Univers 100 mg 4-12 tablets by ity of tablet 00:00: mouth [place] 00 daily. Medical Branch buPROPion 2021-0 Yes [id number] 150mg Take 1 U nivers XL 4-12 tablet by ity of (WELLBUTRIN 00:00: mouth [place] XL) 150 mg 00 daily. Medical 24 hr Branch tablet busPIRone 2021-0 Yes [id number] 30mg Take 1 Un matt 30 mg 4-12 tablet by ity of tablet 00:00: mouth 2 [place] 00 (two) Medical times Branch daily. SERTraline 0 Yes [id number] 200mg Take 2 Univers 100 mg 4-12 tablets by ity of tablet 00:00: mouth [place] 00 daily. Medical Branch buPROPion 2021-0 Yes [id number] 150mg Take 1 U nivers XL 4-12 tablet by ity of (WELLBUTRIN 00:00: mouth [place] XL) 150 mg 00 daily. Medical 24 hr Branch tablet busPIRone 2021-0 Yes [id number] 30mg Take 1 Un matt 30 mg 4-12 tablet by ity of tablet 00:00: mouth 2 [place] 00 (two) Medical times Branch daily. SERTraline 2021-0 Yes [id number] 200mg Take 2 Univers 100 mg 4-12 tablets by ity of tablet 00:00: mouth [place] 00 daily. Medical Branch buPROPion 2021-0 Yes [id number] 150mg Take 1 U nivers XL 4-12 tablet by ity of (WELLBUTRIN 00:00: mouth [place] XL) 150 mg 00 daily. Medical 24 hr Branch tablet busPIRone 2021-0 Yes [id number] 30mg Take 1 Un matt 30 mg 4-12 tablet by ity of tablet 00:00: mouth 2 [place] 00 (two) Medical times Branch daily. SERTraline 2021-0 Yes [id number] 200mg Take 2 [facility] 100 mg 4-12 tablets by ity of tablet 00:00: mouth [place] 00 daily. Medical Branch raltegravir 2022-0 Yes [id number] 400mg Take 1 Univers (ISENTRESS) 3-28 tablet by ity of 400 mg 00:00: mouth 2 [place] tablet 00 (two) Medical times Branch daily. raltegravir 2-0 Yes [id number] 400mg Take 1 Univers (ISENTRESS) 3-28 tablet by ity of 400 mg 00:00: mouth 2 [place] tablet 00 (two) Medical times Branch daily. raltegravir 2-0 Yes [id number] 400mg Take 1 Univers (ISENTRESS) 3-28 tablet by ity of 400 mg 00:00: mouth 2 [place] tablet 00 (two) Medical times Branch daily. raltegravir 2021-0 Yes [id number] 400mg Take 1 Univers (ISENTRESS) 3-28 tablet by ity of 400 mg 00:00: mouth 2 [place] tablet 00 (two) Medical times Branch daily. raltegravir 2021-0 Yes [id number] 400mg Take 1 Univers (ISENTRESS) 3-28 tablet by ity of 400 mg 00:00: mouth 2 [place] tablet 00 (two) Medical times Branch daily. raltegravir 2021-0 Yes [id number] 400mg Take 1 Univers (ISENTRESS) 3-28 tablet by ity of 400 mg 00:00: mouth 2 [place] tablet 00 (two) Medical times Branch daily. raltegravir 2021-0 Yes [id number] 400mg Take 1 Univers (ISENTRESS) 3-28 tablet by ity of 400 mg 00:00: mouth 2 [place] tablet 00 (two) Medical times Branch daily. raltegravir 2-0 Yes [id number] 400mg Take 1 Univers (ISENTRESS) 3-28 tablet by ity of 400 mg 00:00: mouth 2 [place] tablet 00 (two) Medical times Branch daily. raltegravir 2-0 Yes [id number] 400mg Take 1 Univers (ISENTRESS) 3-28 tablet by ity of 400 mg 00:00: mouth 2 [place] tablet 00 (two) Medical times Branch daily. raltegravir 2-0 Yes [id number] 400mg Take 1 Univers (ISENTRESS) 3-28 tablet by ity of 400 mg 00:00: mouth 2 [place] tablet 00 (two) Medical times Branch daily. raltegravir 2-0 Yes [id number] 400mg Take 1 Univers (ISENTRESS) 3-28 tablet by ity of 400 mg 00:00: mouth 2 [place] tablet 00 (two) Medical times Branch daily. raltegravir 2021-0 Yes [id number] 400mg Take 1 Univers (ISENTRESS) 3-28 tablet by ity of 400 mg 00:00: mouth 2 [place] tablet 00 (two) Medical times Branch daily. raltegravir 2021-0 Yes [id number] 400mg Take 1 Univers (ISENTRESS) 3-28 tablet by ity of 400 mg 00:00: mouth 2 [place] tablet 00 (two) Medical times Branch daily. raltegravir 2021-0 Yes [id number] 400mg Take 1 Univers (ISENTRESS) 3-28 tablet by ity of 400 mg 00:00: mouth 2 [place] tablet 00 (two) Medical times Branch daily. raltegravir 2021-0 Yes [id number] 400mg Take 1 Univers (ISENTRESS) 3-28 tablet by ity of 400 mg 00:00: mouth 2 [place] tablet 00 (two) Medical times Branch daily. raltegravir 2021-0 Yes [id number] 400mg Take 1 Univers (ISENTRESS) 3-28 tablet by ity of 400 mg 00:00: mouth 2 [place] tablet 00 (two) Medical times Branch daily. raltegravir 2021-0 Yes [id number] 400mg Take 1 Univers (ISENTRESS) 3-28 tablet by ity of 400 mg 00:00: mouth 2 [place] tablet 00 (two) Medical times Branch daily. raltegravir 2021-0 Yes [id number] 400mg Take 1 Univers (ISENTRESS) 3-28 tablet by ity of 400 mg 00:00: mouth 2 [place] tablet 00 (two) Medical times Branch daily. LORazepam 1 2021-0 2021- No [id number] 1mg Take 1 Univers mg tablet 3-21 [...] MG 00 times a tablet day. emtricitabi 202- No [id number] Take one [facility] ne-tenofovi -20 09-12 po daily ity of r alafen 00:00: 00:00 [place] (DESCOVY) 00 :00 Medical tablet Branch metoprolol Yes [id number] Take 1 [place] tartrate 7-26 tablet Health (Lopressor) 00:00: (100 mg 100 MG 00 total) by tablet mouth 2 (two) times a day AND 0.5 tablets (50 mg total) every night. metoprolol Yes [id number] Take 1 [place] tartrate 7-26 tablet Health [...] (affected area in groin) hydrALAZINE Yes 50mg Q.[id number] Take 50 mg [facility] (APRESOLINE 7-19 [id number] [address] mouth [facility] ) 50 MG [...] (affected area in groin) hydrALAZINE Yes 50mg Q.[id number] Take 50 mg [facility] (APRESOLINE 7-19 [id number] [address] mouth [facility] ) 50 MG [...] (affected area in groin) hydrALAZINE Yes 50mg Q.[id number] Take 50 mg [facility] (APRESOLINE 7-19 [id number] [address] mouth [facility] ) 50 MG [...] area in groin) hydrALAZINE 0 Yes 50mg Q.[id number] Take 50 mg [facility] (APRESOLINE 7-19 [id number] mouth [facility] [address] ) 50 MG [...] area in groin) hydrALAZINE 0 Yes 50mg Q.[id number] Take 50 mg [facility] (APRESOLINE 7-19 [id number] mouth 3 [facility] ) 50 MG [...] (affected area in groin) hydrALAZINE Yes 50mg Q.[id number] Take 50 mg [facility] (APRESOLINE 7-19 [id number] [address] mouth [facility] [address] ) 50 MG [...] (affected area in groin) hydrALAZINE Yes 50mg Q.[id number] Take 50 mg [facility] (APRESOLINE 7-19 [id number] mouth [facility] ) 50 MG [...] area in groin) hydrALAZINE 0 Yes 50mg Q.[id number] Take 50 mg [facility] (APRESOLINE 7-19 [id number] [address] mouth [facility] ) 50 MG [...] (affected area in groin) hydrALAZINE Yes 50mg Q.[id number] Take 50 mg [facility] (APRESOLINE 7-[id number] mouth [facility] ) 50 MG [...] (affected area in groin) hydrALAZINE Yes 50mg Q.[id number] Take 50 mg [facility] (APRESOLINE 7-19 [id number] by mouth 3 st ) 50 MG [...] by st (LOPRESSOR) 10:51: mouth 2 [facility] 100 mg 25 (two) l tablet times [...] area in groin) hydrALAZINE 0 Yes 50mg Q.[id number] Take 50 mg [facility] (APRESOLINE 7-[id number] [address] mouth [facility] [address] ) 50 MG [...] (affected area in groin) hydrALAZINE Yes 50mg Q.[id number] Take 50 mg [facility] (APRESOLINE 7-19 [id number] by mouth [facility] ) 50 MG [...] (affected area in groin) hydrALAZINE Yes 50mg Q.[id number] Take 50 mg [facility] (APRESOLINE 7-19 [id number] mouth [facility] [address] ) 50 MG [...] (affected area in groin) hydrALAZINE Yes 50mg Q.[id number] Take 50 mg [facility] (APRESOLINE 7-19 [id number] mouth [facility] [address] ) 50 MG [...] area in groin) hydrALAZINE 0 Yes 50mg Q.[id number] Take 50 mg [facility] (APRESOLINE 7-19 [id number] [address] mouth 3 [facility] ) 50 MG [...] (affected area in groin) hydrALAZINE Yes 50mg Q.[id number] Take 50 mg [facility] (APRESOLINE 7-19 [id number] by mouth 3 [facility] ) 50 MG [...] area in groin) hydrALAZINE 0 Yes 50mg Q.[id number] Take 50 mg [facility] (APRESOLINE 7-19 [id number] [address] mouth 3 [address] ) 50 MG [...] area in groin) hydrALAZINE 0 Yes 50mg Q.[id number] Take 50 mg [facility] (APRESOLINE 7-19 [id number] by mouth 3 [facility] ) 50 MG [...] (affected area in groin) hydrALAZINE Yes 50mg Q.[id number] Take 50 mg [facility] (APRESOLINE 7-[id number] mouth 3 [address] ) 50 MG [...] (affected area in groin) hydrALAZINE Yes 50mg Q.[id number] Take 50 mg [facility] (APRESOLINE 7-19 [id number] mouth [facility] [address] ) 50 MG [...] area in groin) hydrALAZINE 2020-0 Yes 50mg Q.[id number] Take 50 mg [facility] (APRESOLINE 7-[id number] [address] mouth [facility] [address] ) 50 MG [...] (affected area in groin) hydrALAZINE Yes 50mg Q.[id number] Take 50 mg [facility] (APRESOLINE 7-[id number] mouth [facility] [address] ) 50 MG [...] (affected area in groin) hydrALAZINE Yes 50mg Q.[id number] Take 50 mg [facility] (APRESOLINE 7-[id number] mouth [address] ) 50 MG [...] area in groin) hydrALAZINE 0 Yes 50mg Q.[id number] Take 50 mg [facility] (APRESOLINE 7-19 [id number] [address] mouth [address] ) 50 MG [...] (affected area in groin) hydrALAZINE Yes 50mg Q.[id number] Take 50 mg [facility] (APRESOLINE 7-[id number] mouth [address] ) 50 MG [...] (affected area in groin) hydrALAZINE Yes 50mg Q.[id number] Take 50 mg [facility] (APRESOLINE 7-19 [id number] mouth [facility] ) 50 MG [...] area in groin) hydrALAZINE 0 Yes 50mg Q.[id number] Take 50 mg [facility] (APRESOLINE 7-19 [id number] by mouth 3 [facility] ) 50 MG [...] (affected area in groin) hydrALAZINE Yes 50mg Q.[id number] Take 50 mg [facility] (APRESOLINE 7-19 [id number] mouth [address] ) 50 MG [...] (affected area in groin) hydrALAZINE Yes 50mg Q.[id number] Take 50 mg [facility] (APRESOLINE 7-[id number] mouth [facility] [address] ) 50 MG [...] [facility] daily. l esomeprazol 1-0 Yes 20mg QD Take 20 mg Methodi e (NexIUM) 7-[address] 20 MG 10:51: daily [facility] capsule 25 before l breakfast. amIODarone 1-0 Yes 200mg QD Take 200 [facility] (PACERONE) 7-[address] 200 MG 10:51: mouth [facility] tablet 25 daily. l lisinopril 1-0 Yes 40mg Q.5D Take 40 mg M [...] Hospita tablet 25 l nystatin-tr 1-0 Yes [id number] Apply to [facility] iamcinolone 7-06 area(s) 3 ity of cream 00:00: (three) [place] 00 times Medical daily. Branch nystatin-tr 2021-0 Yes [id number] Apply to [facility] iamcinolone 7-06 area(s) 3 ity of cream 00:00: (three) [place] 00 times Medical daily. Branch nystatin-tr 2021-0 Yes [id number] Apply to [facility] iamcinolone 7-06 area(s) 3 ity of cream 00:00: (three) [place] 00 times Medical daily. Branch nystatin-tr 2021-0 Yes [id number] Apply to [facility] iamcinolone 7-06 area(s) 3 ity of cream 00:00: (three) [place] 00 times Medical daily. Branch nystatin-tr 2021-0 Yes [id number] Apply to [facility] iamcinolone 7-06 area(s) 3 ity of cream 00:00: (three) [place] 00 times Medical daily. Branch nystatin-tr 2021-0 Yes [id number] Apply to [facility] iamcinolone 7-06 area(s) 3 ity of cream 00:00: (three) [place] 00 times Medical daily. Branch nystatin-tr 2021-0 Yes [id number] Apply to [facility] iamcinolone 7-06 area(s) 3 ity of cream 00:00: (three) [place] 00 times Medical daily. Branch nystatin-tr 2021-0 Yes [id number] Apply to [facility] iamcinolone 7-06 area(s) 3 ity of cream 00:00: (three) [place] 00 times Medical daily. Branch nystatin-tr 2021-0 Yes [id number] Apply to [facility] iamcinolone 7-06 area(s) 3 ity of cream 00:00: (three) [place] 00 times Medical daily. Branch nystatin-tr 2021-0 Yes [id number] Apply to [facility] iamcinolone 7-06 area(s) 3 ity of cream 00:00: (three) [place] 00 times Medical daily. Branch nystatin-tr 2021-0 Yes [id number] Apply to [facility] iamcinolone 7-06 area(s) 3 ity of cream 00:00: (three) [place] 00 times Medical daily. Branch nystatin-tr 2021-0 Yes [id number] Apply to [facility] iamcinolone 7-06 area(s) 3 ity of cream 00:00: (three) [place] 00 times Medical daily. Branch nystatin-tr 2021-0 Yes [id number] Apply to [facility] iamcinolone 7-06 area(s) 3 ity of cream 00:00: (three) [place] 00 times Medical daily. Branch nystatin-tr 2021-0 Yes [id number] Apply to [facility] iamcinolone 7-06 area(s) 3 ity of cream 00:00: (three) [place] 00 times Medical daily. Branch nystatin-tr 2021-0 Yes [id number] Apply to [facility] iamcinolone 7-06 area(s) 3 ity of cream 00:00: (three) [place] 00 times Medical daily. Branch nystatin-tr 2021-0 Yes [id number] Apply to [facility] iamcinolone 7-06 area(s) 3 ity of cream 00:00: (three) [place] 00 times Medical daily. Branch nystatin-tr 2021-0 Yes [id number] Apply to [facility] iamcinolone 7-06 area(s) 3 ity of cream 00:00: (three) [place] 00 times Medical daily. Branch nystatin-tr 2021-0 Yes [id number] Apply to [facility] 11-25 area(s) 3 ity of cream 00:00: (three) [place] 00 times Medical daily. Branch budesonide- 2020-0 1- No 1{puff} QD Inhale 1 [facility] formoteroL 625 06-[address] (SYMBICORT) 14:37: 00:00 morning. H [facility]sp[facility] 160-4.5 02 :00 l mcg/actuati on inhaler hydrALAZINE Yes [id number] 50mg Q.[id number] Take 1 [place] (Apresoline 6-11 [id number] tablet (50 Health ) 50 MG 00:00: 3D mg total) tablet 00 by mouth 3 (three) times a day. hydrALAZINE Yes [id number] 50mg Q.[id number] Take 1 [place] (Apresoline 6-11 [id number] tablet (50 Health ) 50 MG 00:00: [...] % 00:00: ointment 00 nystatin 2020- No [id number] Q.25D Take 5 mL [facility] (MYCOSTATIN 10-06- (500,000 st ) 100,000 00:00: 04:59 [facility] a unit/mL 00 :00 total) by l suspension mouth 4 (four) times a day for 14 days. Swish in mouth sucralfate 2020- No 1g Q.25D Take 10 mL [facility] (Carafate) 10-06- ([address] 100 mg/mL 00:00: 04:59 [...] ia 4-10 (Same as: l 14:00: Norvasc) [place] emtricitabi No Notes: Caesar lisa ne 200 MG / 4-10 (Same as: l tenofovir 14:00: Descovy) Herm ariel alafenamide 00 Non-formul 25 MG Oral nancy Tablet [Descovy] pantoprazol No Notes: Caesar lisa e 4-10 Tablet l 14:00: should not [place] 00 be chewed or crushed. (Same as: Protonix) Amiodarone No Notes: Memor ia 4-10 (Same as: l 14:00: Cordarone) [place] Amlodipine No Notes: Memor ia 4-10 (Same as: l 14:00: Norvasc) [place] emtricitabi No Notes: Caesar lisa ne 200 MG / 4-10 (Same as: l tenofovir 14:00: Descovy) Herm ariel alafenamide 00 Non-formul 25 MG Oral nancy Tablet [Descovy] Sertraline No Notes: Memor ia 4-10 (Same as: l 14:00: Zoloft) [place] 00 Sertraline No Notes: Memor ia 4-10 (Same as: l 14:00: Zoloft) [place] 00 pantoprazol No Notes: Caesar lisa e 4-10 Tablet l 14:00: should not [place] 00 be chewed or crushed. (Same as: [...] ia 4-10 (Same as: l 14:00: Zoloft) [place] 00 pantoprazol No Notes: Caesar lisa e 4-10 Tablet l 14:00: should not [place] 00 be chewed or crushed. (Same as: [...] e 4-10 Tablet l 14:00: should not [place] 00 be chewed or crushed. (Same as: Protonix) Amiodarone No Notes: Memor ia 4-10 (Same as: l 14:00: Cordarone) [place] Amlodipine No Notes: Memor ia 4-10 (Same as: l 14:00: Norvasc) [place] emtricitabi No Notes: Caesar lisa ne 200 MG / 4-10 (Same as: l tenofovir 14:00: Descovy) Herm ariel alafenamide 00 Non-formul 25 MG Oral nancy Tablet [Descovy] Sertraline No Notes: Memor ia 4-10 (Same as: l 14:00: Zoloft) [place] pantoprazol No Notes: Caesar lisa e 4-10 Tablet l 14:00: should not [place] 00 be chewed or crushed. (Same as: Protonix) Amiodarone No Notes: Memor ia 4-10 (Same as: l 14:00: Cordarone) [place] Amlodipine No Notes: Memor ia 4-10 (Same as: l 14:00: Norvasc) [place] emtricitabi No Notes: Caesar lisa ne 200 [...] ia 4-10 (Same as: l 14:00: Cordarone) [place] 00 Amlodipine No Notes: Memor ia 4-10 (Same as: l 14:00: Norvasc) [place] 00 emtricitabi No Notes: Caesar lisa ne 200 MG / 4-10 (Same as: l tenofovir 14:00: Descovy) Herm ariel alafenamide 00 Non-formul 25 MG Oral nancy Tablet [Descovy] Sertraline No Notes: Memor ia 4-10 (Same as: l 14:00: Zoloft) [place] pantoprazol No Notes: Caesar lisa e 4-10 Tablet l 14:00: should not [place] 00 be chewed or crushed. (Same as: Protonix) Amiodarone No Notes: Memor ia 4-10 (Same as: l 14:00: Cordarone) [place] Sucralfate 2021-0 No Notes: May M emoria 4-10 interfere [...] 0.9% 4-10 (Same as: l 02:00: BD [place] 00 Posiflush) Eliquis No Notes: Memoria 4-10 Same as: l 02:00: Eliquis [place] 00 Hydralazine No Notes: Caesar lisa Hydrochlori 4-10 (Same as: l de 50 MG 02:00: Apresoline Her mitchell Oral Tablet 00 ) May interfere w/enteral feedings Take With Food Sucralfate No Notes: May M emoria 4-10 interfere l 02:00: w/enteral [place] 00 feeds - Take 1 hr before [...] M emoria 4-10 interfere l 02:00: w/enteral [place] 00 feeds - Take 1 hr before [...] Memoria 4-10 Same as: l 02:00: Eliquis [place] Hydralazine No Notes: Caesar lisa Hydrochlori 4-10 [...] 0.9% 4-10 (Same as: l 02:00: BD [place] Posiflush) Eliquis No Notes: Memoria 4-10 Same as: l 02:00: Eliquis [place] 00 Hydralazine No Notes: Caesar lisa Hydrochlori 4-10 (Same as: l de 50 MG 02:00: Apresoline Her mitchell Oral Tablet 00 ) May interfere w/enteral feedings Take With Food Sucralfate No Notes: May M emoria 4-10 interfere l 02:00: w/enteral [place] 00 feeds - Take 1 hr before or 2 hr after antacids, dairy pdt, meals & minerals - On empty stomach. For patients unable to swallow tablet, dissolve in 10mL - 30mL of water or juice and stir before giving. (Same As: Carafate) Saline No Notes: Memoria Flush 0.9% 4-10 (Same as: l 02:00: BD [place] Posiflush) Eliquis No Notes: Memoria 4-10 Same as: l 02:00: Eliquis [place] Hydralazine No Notes: Acesar lisa Hydrochlori 4-10 (Same as: l de [...] Memoria 4-10 Same as: l 02:00: Eliquis [place] 00 Hydralazine No Notes: Caesar lisa Hydrochlori 4-10 (Same as: l de 50 MG 02:00: Apresoline Her mitchell Oral Tablet 00 ) May interfere w/enteral feedings Take With Food Sucralfate No Notes: May M emoria 4-10 interfere l 02:00: w/enteral [place] 00 feeds - Take 1 hr before [...] Memoria 4-10 Same as: l 02:00: Eliquis [place] Hydralazine No Notes: Caesar lisa Hydrochlori 4-10 [...] not exceed l #3 00:12: 4gm/day of [place] acetaminop hen. (Same as: Tylenol with Codeine # 3) acetaminoph No Notes: Do M emoria en-codeine 4-10 not exceed l #3 00:12: 4gm/day of [place] acetaminop hen. (Same as: Tylenol with Codeine [...] not exceed l #3 00:12: 4gm/day of [place] acetaminop hen. (Same as: Tylenol with Codeine [...] oria 4-09 tab, l 22:00: Route: PO, [place] Drug form: TAB, BID, Dosing Weight 97.273, [...] oria 4-09 tab, l 22:00: Route: PO, [place] Drug form: TAB, BID, Dosing Weight 97.273, kg, Start date: 08/29/20 17:00:00 CDT, Duration: 30 day, Stop date: 09/28/20 9:00:00 CDT metoprolol 1-0 No 100 mg, 1 Me moria tartrate 4-09 tab, l 22:00: Route: PO, [place] 00 Drug form: TAB, BID, Dosing Weight [...] tartrate 4-09 tab, l 22:00: Route: PO, [place] 00 Drug form: TAB, BID, Dosing Weight [...] oria - tab, l 22:00: Route: PO, [place] 00 Drug form: TAB, BID, Dosing Weight [...] Notes: Memoria 4-09 (Same l 17:07: as:MORPhin [place] 00 e Sulfate) Morphine No Notes: Memoria 4-09 (Same l 17:07: as:MORPhin [place] 00 e Sulfate) Morphine No Notes: Memoria 4-09 (Same l 17:07: as:MORPhin [place] 00 e Sulfate) Morphine No Notes: Memoria 4-09 (Same l 17:07: as:MORPhin [place] 00 e Sulfate) Morphine 2020-0 No Notes: Memoria 4- (Same l 17:07: as:MORPhin [place] 00 e Sulfate) Morphine 2020-0 No Notes: Memoria 4- (Same l 17:07: as:MORPhin [place] 00 e Sulfate) Morphine 2020-0 No Notes: Memoria 4- (Same l 17:07: as:MORPhin [place] 00 e Sulfate) buPROPion 2020-0 No 150 [...] 0 coated Refill(s), tablet Pharmacy: [facility] 149, 162.56, cm, 08/29/20 5:30:00 CDT, Height, 97.273, kg, 08/29/20 5:30:00 CDT, Weight pantoprazol 2020-0 Yes 40 mg = 1 M emoria e 40 mg 4-09 tab, PO, l oral 15:27: Daily, # [place] enteric 00 30 tab, 0 coated Refill(s), tablet Pharmacy: [facility] 149, 162.56, cm, 08/29/20 5:30:00 CDT, Height, 97.273, kg, 08/29/20 5:30:00 CDT, Weight pantoprazol 2020-0 Yes 40 mg = 1 M emoria e 40 mg 4-09 tab, PO, l oral 15:27: Daily, # [place] enteric 00 30 tab, 0 coated Refill(s), tablet Pharmacy: [facility] 149, 162.56, cm, 08/29/20 5:30:00 CDT, Height, 97.273, kg, 08/29/20 5:30:00 CDT, Weight pantoprazol 2020-0 Yes 40 mg = 1 M emoria e 40 mg 4-09 tab, PO, l oral 15:27: Daily, # [place] enteric 00 30 tab, 0 coated Refill(s), tablet Pharmacy: [facility] 149, 162.56, cm, 08/29/20 5:30:00 CDT, Height, 97.273, kg, 08/29/20 5:30:00 CDT, Weight pantoprazol 1-0 Yes 40 mg = 1 M emoria e 40 mg 4-09 tab, PO, l oral 15:27: Daily, # [place] enteric 00 30 tab, 0 coated Refill(s), tablet Pharmacy: [facility] 149, 162.56, cm, 08/29/20 5:30:00 CDT, Height, 97.273, kg, 08/29/20 5:30:00 CDT, Weight pantoprazol 1-0 Yes 40 mg = 1 M emoria e 40 mg 4-09 tab, PO, l oral 15:27: Daily, # [place] enteric 00 30 tab, 0 coated Refill(s), tablet Pharmacy: [facility] 149, 162.56, cm, 08/29/20 5:30:00 CDT, Height, 97.273, kg, 08/29/20 5:30:00 CDT, Weight pantoprazol 1-0 Yes 40 mg = 1 M emoria e 40 mg 4-09 tab, PO, l oral 15:27: Daily, # Marty enteric 00 30 tab, 0 coated Refill(s), tablet Pharmacy: [facility] 149, 162.56, cm, 08/29/20 5:30:00 [...] 00 tab, 0 Refill(s), Pharmacy: [facility] 149, 162.56, cm, 08/29/20 5:30:00 CDT, Height, 97.273, kg, 08/29/20 5:30:00 CDT, Weight pantoprazol 2020-0 No 40 mg = 1 M emoria e 40 mg 4-09 tab, PO, l oral 15:26: Daily, # [place] enteric 00 30 tab, 0 coated Refill(s) tablet sucralfate 2020-0 Yes 1 gm = 1 Mem oria 1 g oral 4-09 tab, PO, l tablet 15:26: Q12H, # 28 Skylar nn 00 tab, 0 Refill(s), Pharmacy: [place] [id number], 162.56, cm, 08/29/20 5:30:00 CDT, Height, 97.273, kg, 08/29/20 5:30:00 CDT, Weight pantoprazol 2020-0 No 40 mg = 1 M emoria e 40 mg 4-09 tab, PO, l oral 15:26: Daily, # [place] enteric 00 30 tab, 0 coated Refill(s) tablet sucralfate 2020-0 Yes 1 gm = 1 Mem oria 1 g oral 4-09 tab, PO, l tablet 15:26: Q12H, # 28 Skylar nn 00 tab, 0 Refill(s), Pharmacy: [place] [id number], 162.56, cm, 08/29/20 5:30:00 CDT, Height, 97.273, kg, 08/29/20 5:30:00 CDT, Weight pantoprazol 2020-0 No 40 mg = 1 M emoria e 40 mg 4-09 tab, PO, l oral 15:26: Daily, # [place] enteric 00 30 tab, 0 coated Refill(s) tablet sucralfate 2020-0 Yes 1 gm = 1 Mem oria 1 g oral 4-09 tab, PO, l tablet 15:26: Q12H, # 28 Skylar nn 00 tab, 0 Refill(s), Pharmacy: [facility] 149, 162.56, cm, 08/29/20 5:30:00 CDT, Height, 97.273, kg, 08/29/20 5:30:00 CDT, Weight pantoprazol 2020-0 No 40 mg = 1 M emoria e 40 mg 4-09 tab, PO, l oral 15:26: Daily, # [place] enteric 00 30 tab, 0 coated Refill(s) tablet sucralfate Yes 1 gm = 1 Mem oria 1 g oral 4-09 tab, PO, l tablet 15:26: Q12H, # 28 Skylar nn 00 tab, 0 Refill(s), Pharmacy: [facility] 149, 162.56, cm, 08/29/20 5:30:00 [...] 00 tab, 0 Refill(s), Pharmacy: [facility] 149, 162.56, cm, 08/29/20 5:30:00 [...] 00 tab, 0 Refill(s), Pharmacy: [facility] 149, 162.56, cm, 08/29/20 5:30:00 CDT, Height, 97.273, kg, 08/29/20 5:30:00 CDT, Weight Saline No Notes: Memoria Flush 0.9% 08-29 (Same as: l 15:25: BD Marty 00 Posiflush) Lorazepam No Notes: Memori a 4- (Same as: l 15:25: Ativan) Marty Saline No Notes: Memoria Flush 0.9% 4-09 (Same as: l 15:25: BD [place] 00 Posiflush) Lorazepam No Notes: Memori a 4-09 (Same as: l 15:25: Ativan) [place] 00 Saline No Notes: Memoria Flush 0.9% 4-09 (Same as: l 15:25: BD [place] 00 Posiflush) Saline No Notes: Memoria Flush 0.9% 4-09 (Same as: l 15:25: BD [place] 00 Posiflush) Lorazepam No Notes: Memori a 4-09 (Same as: l 15:25: Ativan) [place] 00 Lorazepam No Notes: Memori a 4-09 (Same as: l 15:25: Ativan) [place] 00 Saline No Notes: Memoria Flush 0.9% 4-09 (Same as: l 15:25: BD [place] 00 Posiflush) Lorazepam No Notes: Memori a [...] Drug form: l mg + 15:00: INJ, [place] Dosing Weight 97.3, kg, Start date: 08/29/20 [...] Drug form: l mg + 15:00: INJ, [place] Dosing Weight 97.3, kg, Start date: 08/29/20 10:00:00 CDT, Stop date: 08/29/20 11:00:00 CDT Isuprel HCl 2020-0 No Route: IV, Memoria (ANES) 0.2 08-29 Drug form: l mg + 15:00: INJ, [place] Dosing Weight 97.3, kg, Start date: 08/29/20 [...] 08-29 Drug form: l 14:49: INJ, ONCE, [place] 00 Stop date: 08/29/20 9:49:00 CDT heparin [...] Memori a 08-29 Route: l 14:01: IVP, [place] 00 Q5Min, Dosing Weight 97.273, kg, PRN Elevated BP, Start date: 08/29/20 9:01:00 CDT, Duration: 5 doses or times, Stop date: Limited # of times Acetaminoph 1-0 No 1,000 mg, M emoria en 08-29 Route: PO, l 14:01: Drug form: [place] 00 TAB, ONCE, Dosing Weight 97.273, kg, [...] oria ne 08-29 Route: l 14:01: IVP, [place] 00 Q5Min, Dosing Weight 97.273, kg, PRN Pain Score 7-10, Start date: 08/29/20 9:01:00 CDT, Duration: 4 doses or times, Stop date: Limited # of times Flumazenil 2020-0 No 0.2 mg, Caesar lisa 08-29 Route: l 14:01: IVP, PRN, [place] 00 Dosing Weight 97.273, kg, PRN Benzodiaze pine Reversal, Initial dose, Start date: 08/29/20 9:01:00 CDT, Duration: 30 day, Stop date: 09/28/20 9:00:00 CDT Naloxone 1-0 No 0.4 mg, Memori a 08-29 Route: l 14:01: IVP, [place] 00 Q2MIN, Dosing Weight 97.273, kg, PRN [...] Memori a 08-29 Route: l 14:01: IVP, [place] 00 Q5Min, Dosing Weight 97.273, kg, PRN [...] lisa 08-29 Route: l 14:01: IVP, PRN, [place] 00 Dosing Weight 97.273, kg, PRN Benzodiaze pine Reversal, Initial dose, Start date: 08/29/20 9:01:00 CDT, Duration: 30 day, Stop date: 09/28/20 9:00:00 CDT Naloxone 1-0 No 0.4 mg, Memori a 08-29 Route: l 14:01: IVP, [place] 00 Q2MIN, Dosing Weight 97.273, kg, PRN [...] 08-29 Route: PO, l 14:01: Drug form: [place] 00 TAB, ONCE, Dosing Weight 97.273, kg, [...] 08-29 Route: PO, l 14:01: Drug form: [place] 00 TAB, ONCE, Dosing Weight 97.273, kg, [...] Memori a 08-29 Route: l 14:01: IVP, [place] 00 Q5Min, Dosing Weight 97.273, kg, PRN [...] oria ne 08-29 Route: l 14:01: IVP, [place] 00 Q5Min, Dosing Weight 97.273, kg, PRN [...] lisa 08-29 Route: l 14:01: IVP, PRN, [place] 00 Dosing Weight 97.273, kg, PRN Benzodiaze pine Reversal, Initial dose, Start date: 08/29/20 9:01:00 CDT, Duration: 30 day, Stop date: 09/28/20 9:00:00 CDT Ondansetron 1-0 No 4 mg, Memor ia 08-29 Route: l 14:01: IVP, ONCE, [place] 00 Dosing Weight 97.273, kg, PRN Nausea & Vomiting, Start date: 08/29/20 9:01:00 CDT Naloxone 1-0 No 0.4 mg, Memori a 08-29 Route: l 14:01: IVP, [place] 00 Q2MIN, Dosing Weight 97.273, kg, PRN [...] Memori a 08-29 Route: l 14:01: IVP, [place] 00 Q2MIN, Dosing Weight 97.273, kg, PRN Narcotic Reversal, Start date: 08/29/20 9:01:00 CDT, Duration: 8 doses or times, Stop date: Limited # of times Ondansetron 2020-0 No 4 mg, Memor ia 08-29 Route: l 14:01: IVP, ONCE, [place] 00 Dosing Weight 97.273, kg, PRN Nausea & Vomiting, Start date: 08/29/20 9:01:00 CDT Labetalol 2020-0 No 10 mg, Memori a 08-29 Route: l 14:01: IVP, [place] 00 Q5Min, Dosing Weight 97.273, kg, PRN Elevated BP, Start date: 08/29/20 9:01:00 CDT, Duration: 5 doses or times, Stop date: Limited # of times Acetaminoph 2020-0 No 1,000 mg, M emoria en 08-29 Route: PO, l 14:01: Drug form: [place] 00 TAB, ONCE, Dosing Weight 97.273, kg, [...] lisa 08-29 Route: l 14:01: IVP, PRN, [place] Dosing Weight 97.273, kg, PRN Benzodiaze pine [...] 08-29 Drug form: l 13:42: INJ, ONCE, [place] Stop date: 08/29/20 8:42:00 CDT fentaNYL 2020-0 No Route: IV, Mem oria (ANES) 08-29 Drug form: l 13:42: INJ, ONCE, [place] Stop date: 08/29/20 8:42:00 CDT fentaNYL 2020-0 No Route: IV, Mem oria (ANES) 08-29 Drug form: l 13:42: INJ, ONCE, [place] Stop date: 08/29/20 8:42:00 CDT fentaNYL 2020-0 No Route: IV, Mem oria (ANES) 08-29 Drug form: l 13:42: INJ, ONCE, [place] Stop date: 08/29/20 8:42:00 CDT norepinephr 2020-0 No Route: IV, Memoria ine (ANES) 08-29 Drug form: l 10 13:15: INJ, Start [place] microgram date: 08/29/20 8:15:00 CDT, Stop date: [...] Drug form: l 10 13:15: INJ, Start [place] microgram 00 date: 08/29/20 8:15:00 CDT, Stop date: 08/29/20 9:15:00 CDT norepinephr 2020-0 No Route: IV, Memoria ine (ANES) 08-29 Drug form: l 10 13:15: INJ, Start [place] microgram date: 08/29/20 8:15:00 CDT, Stop date: [...] 4-09 Total l 0.9% IV 12:30: Volume: [place] (ANES) 1000 00 1,000, mL Start date: 08/29/20 7:30:00 CDT, Stop date: 08/29/20 8:30:00 CDT Sodium 202-0 No Route: IV, Memor ia Chloride 4-09 Total l 0.9% IV 12:30: Volume: [place] (ANES) 1000 00 1,000, mL Start date: 08/29/20 7:30:00 CDT, Stop date: 08/29/20 8:30:00 CDT Sodium 2020-0 No Route: IV, Memor ia Chloride 4-09 Total l 0.9% IV 12:30: Volume: [place] (ANES) 1000 00 1,000, mL Start date: 08/29/20 7:30:00 CDT, Stop date: 08/29/20 8:30:00 CDT Sodium 202-0 No Route: IV, Memor ia Chloride 4-09 Total l 0.9% IV 12:30: Volume: Marty (ANES) 1000 00 1,000, mL Start date: 08/29/20 7:30:00 CDT, Stop date: 08/29/20 8:30:00 CDT Sodium 2021-0 No Route: IV, Memor ia Chloride 4-09 Total l 0.9% IV 12:30: Volume: [place] (ANES) 1000 00 1,000, mL Start date: 08/29/20 7:30:00 CDT, Stop date: 08/29/20 8:30:00 CDT Sodium 2021-0 No Route: IV, Memor ia Chloride 4-09 Total l 0.9% IV 12:30: Volume: [place] (ANES) 1000 00 1,000, mL Start date: [...] PO, l Hydrochlori 11:42: Q24H, # 30 [place] de 150 MG 00 tab, 0 Extended Refill(s) Release Tablet 24 HR Yes 150 mg = 1 Memori a Bupropion -09 tab, PO, l Hydrochlori 11:42: Q24H, # 30 [place] de 150 MG 00 tab, 0 Extended Refill(s) Release Tablet 24 HR Yes 150 mg = 1 Memori a Bupropion -09 tab, PO, l Hydrochlori 11:42: Q24H, # 30 [place] de 150 MG 00 tab, 0 Extended [...] 4- Q12H, tab, l Tablet 11:41: 0 [place] [Eliquis] 00 Refill(s), For Atrial Fibrilatio n [...] 4- Q12H, tab, l Tablet 11:41: 0 [place] [Eliquis] 00 Refill(s), For Atrial Fibrilatio n apixaban 5 2020-0 Yes 5 mg, PO, Me moria MG Oral 4- Q12H, tab, l Tablet 11:41: 0 [place] [Eliquis] 00 Refill(s), For Atrial Fibrilatio n [...] tab, PO, l tablet 11:38: Daily, # [place] 00 90 tab, 3 Refill(s) AMIODarone 2020-0 Yes 200 mg = 1 M emoria 200 mg oral 4-09 tab, PO, l tablet 11:38: Daily, # [place] 00 90 tab, 3 Refill(s) AMIODarone 2021-0 Yes 200 mg = 1 M emoria 200 mg oral 4-09 tab, PO, l tablet 11:38: Daily, # [place] 00 90 tab, 3 Refill(s) AMIODarone 0 [...] [facility] tablet 00 :00 l Eliquis 5 2021-0 Yes [facility] mg [...] 08-16 00:00: [facility]osp[facility] 00 l Eliquis 5 Yes [facility] mg tablet 08-16 00:00: [facility]osp[facility] 00 l Eliquis 5 Yes [facility] mg tablet 08-16 00:00: [facility]osp[facility] 00 l Eliquis 5 0 Yes [facility] mg tablet 08-16 00:00: [facility] 00 l predniSONE Yes [facility] [...] Immunizations Ordered Filled Immunization Date Status Comments [facility] Immunization Name Name SARS-COV-2 COVID-19 2022-03-05 [...] [place] 65[place] PFIZER COVID-19 2020-07-23 Completed [facility] 00:00:00 [facility] PFIZER COVID-19 2020-07-23 Completed [facility]ACC[facility] 00:00:00 [facility] PFIZER COVID-19 2020-07-23 Completed [facility] VACCINATION 00:00:00 [facility] PFIZER COVID-19 2020-07-23 Completed [facility] VACCINATION 00:00:00 [facility] PFIZER COVID-19 2020-07-23 Completed [facility] VACCINATION 00:00:00 [facility] PFIZER COVID-19 2020-07-23 Completed [facility] VACCINATION 00:00:00 [facility] PFIZER COVID-19 2020-07-23 Completed [facility] VACCINATION 00:00:00 [facility] PFIZER COVID-19 2020-07-23 Completed [facility] VACCINATION 00:00:00 [facility] PFIZER COVID-19 2020-07-23 Completed [facility] VACCINATION 00:00:00 [facility] PFIZER COVID-19 2020-07-23 Completed [facility] VACCINATION 00:00:00 [facility] PFIZER COVID-19 2020-07-23 Completed [facility] VACCINATION 00:00:00 [facility] PFIZER COVID-19 2020-07-23 Completed [facility] VACCINATION 00:00:00 [facility] PFIZER COVID-19 2020-07-23 Completed [facility] VACCINATION 00:00:00 [facility] PFIZER COVID-19 2020-07-23 Completed [facility] VACC[facility] 00:00:00 [facility] PFIZER COVID-19 2020-07-23 Completed [facility] VACC[facility] 00:00:00 [facility] PFIZER COVID-19 2020-07-23 Completed [facility] VACC[facility] 00:00:00 [facility] PFIZER COVID-19 2020-07-23 Completed [facility]ACC[facility] 00:00:00 [facility] PFIZER COVID-19 2020-07-23 Completed [facility]ACC[facility] 00:00:00 [facility] PFIZER COVID-19 2020-07-23 Completed [facility] 00:00:00 [facility] PFIZER COVID-19 2020-07-23 Completed [facility] 00:00:00 [facility] PFIZER COVID-19 2020-07-23 Completed [facility] 00:00:00 [facility] PFIZER COVID-19 2020-07-23 Completed [facility]:00 [facility] PFIZER COVID-19 2020-07-23 [facility]:00:00 [facility] PFIZER COVID-19 2020-07-23 [facility]00 [facility] PFIZER COVID-19 2020-07-23 [facility]:00:00 [facility] PFIZER COVID-19 2020-07-23 [facility]pleted [facility]:00:00 [facility] PFIZER COVID-19 2020-07-23 [facility]:00:00 [facility] PFIZER COVID-19 2020-07-23 [facility]:00:00 [facility] SARS-COV-2 COVID-19 2020-07-23 [facility]pleted [facility]ACC[facility] 00[facility]00:00 [facility] SARS-COV-2 COVID-19 2020-07-23 Completed [facility] VACCINE 00:00:00 [facility] SARS-COV-2 COVID-19 2020-07-23 Completed [facility] VACCINE 00:00:00 [facility] SARS-COV-2 COVID-19 2020-07-23 Completed [facility] VACCINE 00:00:00 [facility] SARS-COV-2 COVID-19 2020-07-23 Completed [facility] P[facility] VACCINE 00:00:00 [facility] SARS-COV-2 COVID-19 2020-07-23 Completed [facility] P[facility] VACCINE 00:00:00 [facility] SARS-COV-2 COVID-19 2020-07-23 Completed [facility] P[facility] VACCINE 00:00:00 [facility] SARS-COV-2 COVID-19 2020-07-23 Completed [facility] PFI[facility] VACCINE 00:00:00 [facility] SARS-COV-2 COVID-19 2020-07-23 Completed [facility] VACCINE 00:00:00 [facility] SARS-COV-2 COVID-19 2020-07-23 Completed [facility] PFI[facility] VACCINE 00:00:00 [facility] SARS-COV-2 COVID-19 2020-07-23 Completed [facility] PFI[facility] VACCINE 00:00:00 [facility] SARS-COV-2 COVID-19 2020-07-23 Completed [facility] PFIZER VACCINE 00:00:00 [facility] SARS-COV-2 COVID-19 2020-07-23 Completed [facility] PFIZER VACCINE 00:00:00 [facility] SARS-COV-2 COVID-19 2020-07-23 Completed [facility] PFIZER VACCINE 00:00:00 [facility] PFIZER COVID-19 2020-07-23 [facility]00 [facility] PFIZER COVID-19 2020-07-02 Completed [facility] VACCINATION 00:00:00 [facility] PFIZER COVID-19 2020-07-02 Completed [facility] VACCINATION 00:00:00 [facility] PFIZER COVID-19 2020-07-02 Completed [facility] VACCINATION 00:00:00 [facility] PFIZER COVID-19 2020-07-02 Completed [facility] VACCINATION 00:00:00 [facility] PFIZER COVID-19 2020-07-02 Completed [facility] VACCINATION 00:00:00 [facility] PFIZER COVID-19 2020-07-02 Completed [facility] VACCINATION 00:00:00 [facility] PFIZER COVID-19 2020-07-02 Completed [facility] VACCINATION 00:00:00 [facility] PFIZER COVID-19 2020-07-02 Completed [facility] VACCINATION 00:00:00 [facility] PFIZER COVID-19 2020-07-02 Completed [facility] VACCINATION 00:00:00 [facility] PFIZER COVID-19 2020-07-02 Completed [facility] VACC[facility]ATION 00:00:00 [facility] PFIZER COVID-19 2020-07-02 Completed [facility] VACCINATION 00:00:00 [facility] PFIZER COVID-19 2020-07-02 Completed [facility] VACCINATION 00:00:00 [facility] PFIZER COVID-19 2020-07-02 Completed [facility]00 [facility] PFIZER COVID-19 2020-07-02 Completed [facility] VACCINATION 00:00:00 [facility] PFIZER COVID-19 2020-07-02 Completed [facility] VACCINATION 00:00:00 [facility] PFIZER COVID-19 2020-07-02 Completed [facility] VACCINATION 00:00:00 [facility] PFIZER COVID-19 2020-07-02 Completed [facility] VACCINATION 00:00:00 [facility] PFIZER COVID-19 2020-07-02 Completed [facility] VACCINATION 00:00:00 [facility] PFIZER COVID-19 2020-07-02 Completed [facility] VACCINATION 00:00:00 [facility] PFIZER COVID-19 2020-07-02 Completed [facility] VACCINATION 00:00:00 [facility] PFIZER COVID-19 2020-07-02 Completed [facility] VACCINATION 00:00:00 [facility] PFIZER COVID-19 2020-07-02 Completed [facility] VACCINATION 00:00:00 [facility] PFIZER COVID-19 2020-07-02 Completed [facility] VACCINATION 00:00:00 [facility] PFIZER COVID-19 2020-07-02 Completed [facility] VACCINATION 00:00:00 [facility] PFIZER COVID-19 2020-07-02 Completed [facility] VACCINATION 00:00:00 [facility] PFIZER COVID-19 2020-07-02 Completed [facility] VACCINATION 00:00:00 [facility] PFIZER COVID-19 2020-07-02 Completed [facility] VACCINATION 00:00:00 [facility] PFIZER COVID-19 2020-07-02 Completed [facility] VACCINATION 00:00:00 [facility] SARS-COV-2 COVID-19 2020-07-02 Completed Unive rsity of PFIZER VACCINE 00:00:00 [facility] SARS-COV-2 COVID-19 2020-07-02 Completed Unive rsity of PFIZER VACCINE 00:00:00 [facility] SARS-COV-2 COVID-19 2020-07-02 Completed Unive rsity of PFIZER VACCINE 00:00:00 [facility] SARS-COV-2 COVID-19 2020-07-02 Completed Unive rsity of PFIZER VACCINE 00:00:00 [facility] SARS-COV-2 COVID-19 2020-07-02 Completed Unive rsity of PFIZER VACCINE 00:00:00 [facility] SARS-COV-2 COVID-19 2020-07-02 Completed Unive rsity of PFIZER VACCINE 00:00:00 [facility] SARS-COV-2 COVID-19 2020-07-02 Completed Unive rsity of PFIZER VACCINE 00:00:00 [facility] SARS-COV-2 COVID-19 2020-07-02 Completed Unive rsity of PFIZER VACCINE 00:00:00 [facility] SARS-COV-2 COVID-19 2020-07-02 Completed Unive rsity of PFIZER VACCINE 00:00:00 [facility] SARS-COV-2 COVID-19 2020-07-02 Completed Unive rsity of PFIZER VACCINE 00:00:00 [facility] SARS-COV-2 COVID-19 2020-07-02 Completed Unive rsity of PFIZER VACCINE 00:00:00 [facility] SARS-COV-2 COVID-19 2020-07-02 Completed Unive rsity of PFIZER VACCINE 00:00:00 [facility] SARS-COV-2 COVID-19 2020-07-02 Completed Unive rsity of PFIZER VACCINE 00:00:00 [facility] SARS-COV-2 COVID-19 2020-07-02 Completed Unive rsity of PFIZER VACCINE 00:00:00 [facility] PFIZER COVID-19 2020-07-02 Completed [facility] VACC[facility]ATION 00:00:00 [facility] Influenza Virus 2017-03-08 Completed [...] Vaccine (3+ yrs) 00:00:00 [facility] Pneumococcal 13 2014-01-30 Completed Universit y of Conjugate, PCV13 00:00:00 [facility] Influenza Virus 2014-01-30 Completed Universit y of Vaccine (3+ yrs) 00:00:00 [facility] Pneumococcal 13 2014-01-30 Completed Universit y of Conjugate, PCV13 00:00:00 [facility] (Prevnar 13) Branch Influenza Virus 2014-01-30 Completed Universit y of Vaccine (3+ yrs) 00:00:00 [facility] Pneumococcal 13 2014-01-30 Completed Universit y of Conjugate, PCV13 00:00:00 [facility] (Prevnar 13) Branch Influenza Virus 2014-01-30 Completed [facility]it y of Vaccine (3+ yrs) 00:00:00 [facility] Pneumococcal 13 2014-01-30 Completed Universit y of Conjugate, PCV13 00:00:00 [facility] (Prevnar 13) Branch Influenza Virus 2014-01-30 Completed [facility]it y of Vaccine (3+ yrs) 00:00:00 [facility] Pneumococcal 13 2014-01-30 Completed Universit y of Conjugate, PCV13 00:00:00 [facility] (Prevnar 13) Branch Influenza Virus 2014-01-30 Completed [facility]it y of Vaccine (3+ yrs) 00:00:00 [facility] Pneumococcal 13 2014-01-30 Completed [facility]it y of Conjugate, PCV13 00:00:00 [facility] (Prevnar 13) Branch Influenza Virus 2014-01-30 Completed [facility]it y of Vaccine (3+ yrs) 00:00:00 [facility] Pneumococcal 13 2014-01-30 Completed Universit y [...] y of Vaccine (3+ yrs) 00:00:00 [place] [facility] Pneumococcal 13 2014-01-30 Completed [facility]it y of Conjugate, PCV13 00:00:00 [place] [facility] (Prevnar 13) Branch Influenza Virus 2014-01-30 Completed [facility]it y of Vaccine (3+ yrs) 00:00:00 [place] [facility] Pneumococcal 13 2014-01-30 Completed [facility]it y of Conjugate, PCV13 00:00:00 [place] [facility] (Prevnar 13) Branch Influenza Virus 2014-01-30 Completed [facility]it y of Vaccine (3+ yrs) 00:00:00 [place] [facility] Pneumococcal 13 2014-01-30 Completed [facility]it y of Conjugate, PCV13 00:00:00 [place] [facility] (Prevnar 13) Branch Influenza Virus 2014-01-30 Completed [facility]it y of Vaccine (3+ yrs) 00:00:00 [facility] Pneumococcal 13 2014-01-30 Completed [facility]it y of Conjugate, PCV13 00:00:00 [place] [facility] (Prevnar 13) [facility] Influenza Virus 2014-01-30 Completed [facility]it y of Vaccine (3+ yrs) 00:00:00 [place] [facility] Pneumococcal 13 2014-01-30 Completed [facility]it y of Conjugate, PCV13 00:00:00 [place] [facility] (Prevnar 13) Branch Influenza Virus 2014-01-30 Completed [facility]it y of Vaccine (3+ yrs) 00:00:00 [facility] Pneumococcal 13 2014-01-30 Completed [facility]it y of Conjugate, PCV13 00:00:00 [place] [facility] (Prevnar 13) Branch Influenza Virus 2014-01-30 Completed [facility]it y of Vaccine (3+ yrs) 00:00:00 [facility] Pneumococcal 13 2014-01-30 Completed [facility]it y of Conjugate, PCV13 00:00:00 [facility] (Prevnar 13) Branch Influenza Virus 2014-01-30 Completed Universit y of Vaccine (3+ yrs) 00:00:00 [facility] Pneumococcal 13 2014-01-30 Completed [facility]it y of Conjugate, PCV13 00:00:00 [facility] (Prevnar 13) Branch Influenza Virus 2014-01-30 Completed [facility]it y of Vaccine (3+ yrs) 00:00:00 [facility] Pneumococcal 13 2014-01-30 Completed [facility]it y of Conjugate, PCV13 00:00:00 [facility] (Prevnar 13) Branch Pneumococcal 2012-02-16 Completed University o f Polysaccharide, 00:00:00 [place] [facility] PPSV23 (PNEUMOVAX) Branch Influenza Virus 2012-02-16 Completed Universit y of Vaccine 00:00:00 [facility] PPD (TB) 2012-02-16 Completed University of 00:00:00 [facility] Pneumococcal 2012-02-16 Completed University o f Polysaccharide, 00:00:00 [place] [facility] PPSV23 (PNEUMOVAX) Branch Influenza Virus 2012-02-16 Completed Universit y of Vaccine 00:00:00 [facility] PPD (TB) 2012-02-16 Completed University of 00:00:00 [facility] Pneumococcal 2012-02-16 Completed University o f Polysaccharide, 00:00:00 [place] [facility] PPSV23 (PNEUMOVAX) Branch Influenza Virus 2012-02-16 Completed Universit y of Vaccine 00:00:00 [facility] PPD (TB) 2012-02-16 Completed University of 00:00:00 [facility] Pneumococcal 2012-02-16 Completed University o f Polysaccharide, 00:00:00 [place] [facility] PPSV23 (PNEUMOVAX) Branch Influenza Virus 2012-02-16 Completed Universit y of Vaccine 00:00:00 [facility] PPD (TB) 2012-02-16 Completed University of 00:00:00 [facility] Pneumococcal 2012-02-16 Completed University o f Polysaccharide, 00:00:00 [place] [facility] PPSV23 (PNEUMOVAX) Branch Influenza [...] 2012-02-16 Completed University o f Polysaccharide, 00:00:00 [place] [facility] PPSV23 (PNEUMOVAX) Branch Influenza Virus 2012-02-16 Completed Universit y of Vaccine 00:00:00 [facility] PPD (TB) 2012-02-16 Completed University of 00:00:00 [facility] Pneumococcal 2012-02-16 Completed University o f Polysaccharide, 00:00:00 [place] [facility] PPSV23 (PNEUMOVAX) Branch Influenza Virus 2012-02-16 Completed Universit y of Vaccine 00:00:00 [facility] PPD (TB) 2012-02-16 Completed University of 00:00:00 [facility] Pneumococcal 2012-02-16 Completed University o f Polysaccharide, 00:00:00 [place] [facility] PPSV23 (PNEUMOVAX) Branch Influenza Virus 2012-02-16 Completed Universit y of Vaccine 00:00:00 [facility] PPD (TB) 2012-02-16 Completed University of 00:00:00 [facility] Pneumococcal 2012-02-16 Completed University o f Polysaccharide, 00:00:00 [place] [facility] PPSV23 (PNEUMOVAX) Branch Influenza [...] 2012-02-16 Completed University o f Polysaccharide, 00:00:00 [place] [facility] PPSV23 (PNEUMOVAX) Branch Influenza Virus 2012-02-16 Completed [facility]it y of Vaccine 00:00:00 [facility] PPD (TB) 2012-02-16 Completed University of 00:00:00 [facility] Pneumococcal 2012-02-16 Completed University o f Polysaccharide, 00:00:00 [place] [facility] PPSV23 (PNEUMOVAX) Branch Influenza Virus 2012-02-16 Completed Universit y of Vaccine 00:00:00 [facility] PPD (TB) 2012-02-16 Completed University of 00:00:00 [facility] Pneumococcal 2012-02-16 Completed University o f Polysaccharide, 00:00:00 [place] [facility] PPSV23 (PNEUMOVAX) Branch Influenza Virus 2012-02-16 Completed Universit y of Vaccine 00:00:00 [facility] PPD (TB) 2012-02-16 Completed University of 00:00:00 [facility] Pneumococcal 2012-02-16 Completed University o f Polysaccharide, 00:00:00 [place] [facility] PPSV23 (PNEUMOVAX) Branch Influenza [...] Completed Unive rsity of Dosage 00:00:00 [facility] Hep B, Adol or Pedi 2011-03-17 Completed Unive rsity of Dosage 00:00:00 [facility] Hep B, Adol or Pedi 2011-03-17 Completed Unive rsity of Dosage 00:00:00 [facility] Hep B, Adol or Pedi 2011-03-17 Completed Unive rsity of Dosage 00:00:00 [facility] Hep B, Adol or Pedi 2011-03-17 Completed Unive rsity of Dosage 00:00:00 [facility] Hep B, Adol or Pedi 2011-03-17 Completed Unive rsity of Dosage 00:00:00 [facility] Hep B, Adol or Pedi 2011-03-17 Completed Unive rsity of Dosage 00:00:00 [facility] Hep B, Adol or Pedi 2011-03-17 Completed Unive rsity of Dosage 00:00:00 [facility] Hep B, Adol or Pedi 2011-03-17 Completed Unive rsity of Dosage 00:00:00 [facility] Hep B, Adol or Pedi 2011-03-17 Completed Unive rsity of Dosage 00:00:00 [facility] Hep B, Adol or Pedi 2011-03-17 Completed Unive rsity of Dosage 00:00:00 [facility] Hep B, Adol or Pedi 2011-03-17 Completed Unive rsity of Dosage 00:00:00 [facility] Hep B, Adol or Pedi 2011-03-17 Completed Unive rsity of Dosage 00:00:00 [facility] Hep B, Adol or Pedi 2011-03-17 Completed Unive rsity of Dosage 00:00:00 [facility] Hep B, Adol or Pedi 2011-03-17 Completed Unive rsity of Dosage 00:00:00 [facility] Hep B, Adol or Pedi 2011-03-17 Completed Unive rsity of Dosage 00:00:00 [facility] Hep B, Adol or Pedi 2011-03-17 Completed Unive rsity of Dosage 00:00:00 [facility] Influenza Virus 2011-02-10 Completed Universit y of Vaccine 00:00:00 [facility] Hep B, Adol or Pedi 2011-02-10 [...] Vaccine 00:00:00 [facility] Hep B, Adol or Pedi 2011-02-10 Completed Unive rsity of Dosage 00:00:00 [facility] Influenza Virus 2011-02-10 Completed Universit y of Vaccine 00:00:00 [facility] Hep B, Adol or Pedi 2011-02-10 Completed Unive rsity of Dosage 00:00:00 [facility] Influenza Virus 2011-02-10 Completed Universit y [...] of 00:00:00 [facility] TDAP (ADACEL) 2010-11-18 Completed University of VACCINE 00:00:00 [facility] PPD (TB) 2010-11-18 Completed University of 00:00:00 [facility] TDAP (ADACEL) 2010-11-18 Completed University of VACCINE 00:00:00 [facility] PPD (TB) 2010-11-18 Completed University of 00:00:00 [facility] TDAP (ADACEL) 2010-11-18 Completed University of [...] of 00:00:00 [facility] TDAP (ADACEL) 2010-11-18 Completed University of VACCINE 00:00:00 [facility] PPD (TB) 2010-11-18 Completed University of 00:00:00 [facility] TDAP (ADACEL) 2010-11-18 Completed University of VACCINE 00:00:00 [facility] PPD (TB) 2010-11-18 Completed University of 00:00:00 [facility] TDAP (ADACEL) 2010-11-18 Completed University of VACCINE 00:00:00 [facility] PPD (TB) 2010-11-18 Completed University of 00:00:00 [facility] TDAP (ADACEL) 2010-11-18 Completed University of VACCINE 00:00:00 [facility] PPD (TB) 2010-11-18 Completed University of 00:00:00 [facility] TDAP (ADACEL) 2010-11-18 Completed University of VACCINE 00:00:00 [facility] PPD (TB) 2010-11-18 Completed University of 00:00:00 [facility] TDAP (ADACEL) 2010-11-18 Completed University of VACCINE 00:00:00 [facility] HEPATITIS A 2004-03-02 Completed University of 00:00:00 [facility] HEPATITIS A 2004-03-02 Completed University of 00:00:00 [facility] HEPATITIS A 2004-03-02 Completed University of 00:00:00 [facility] HEPATITIS A 2004-03-02 Completed University of 00:00:00 [facility] HEPATITIS A 2004-03-02 Completed University of 00:00:00 [facility] HEPATITIS A 2004-03-02 Completed University of 00:00:00 [facility] HEPATITIS A 2004-03-02 Completed University of 00:00:00 [facility] HEPATITIS A 2004-03-02 Completed University of 00:00:00 [facility] HEPATITIS A 2004-03-02 Completed University of 00:00:00 [facility] HEPATITIS A 2004-03-02 Completed University of 00:00:00 [facility] HEPATITIS A 2004-03-02 Completed University of 00:00:00 [facility] HEPATITIS A 2004-03-02 Completed University of 00:00:00 [facility] HEPATITIS A 2004-03-02 Completed University of 00:00:00 [facility] HEPATITIS A 2004-03-02 Completed University of 00:00:00 [facility] HEPATITIS A 2004-03-02 Completed University of 00:00:00 [facility] HEPATITIS A 2004-03-02 Completed University of 00:00:00 [facility] HEPATITIS A 2004-03-02 Completed University of 00:00:00 [facility] HEPATITIS A 2004-03-02 Completed University of 00:00:00 [facility] HEPATITIS A 2003-08-01 Completed University of 00:00:00 [facility] HEPATITIS A 2003-08-01 Completed University of 00:00:00 [facility] HEPATITIS A 2003-08-01 Completed University of 00:00:00 [facility] HEPATITIS A 2003-08-01 Completed University of 00:00:00 [facility] HEPATITIS A 2003-08-01 Completed University of 00:00:00 [facility] HEPATITIS A 2003-08-01 Completed University of 00:00:00 [facility] HEPATITIS A 2003-08-01 Completed University of 00:00:00 [facility] HEPATITIS A 2003-08-01 Completed University of 00:00:00 [facility] HEPATITIS A 2003-08-01 Completed University of 00:00:00 [facility] HEPATITIS A 2003-08-01 Completed University of 00:00:00 [facility] HEPATITIS A 2003-08-01 Completed University of [...] Completed University o f Polysaccharide, 00:00:00 [place] [facility] PPSV23 (PNEUMOVAX) Branch PPD (TB) 2001-10-04 Completed [facility] of 00:00:00 [facility] Pneumococcal 2001-10-04 Completed University o f Polysaccharide, 00:00:00 [place] [facility] PPSV23 (PNEUMOVAX) Branch PPD (TB) 2001-10-04 Completed University of 00:00:00 [facility] Pneumococcal 2001-10-04 Completed University o f Polysaccharide, 00:00:00 [place] [facility] PPSV23 (PNEUMOVAX) Branch PPD (TB) 2001-10-04 Completed [facility] of 00:00:00 [facility] Pneumococcal 2001-10-04 Completed University o f Polysaccharide, 00:00:00 [place] [facility] PPSV23 (PNEUMOVAX) Branch PPD (TB) 2001-10-04 Completed [facility] of 00:00:00 [facility] Pneumococcal 2001-10-04 Completed [facility] o f Polysaccharide, 00:00:00 [place] [facility] [...] Completed [facility] o f Polysaccharide, 00:00:00 [place] [facility] PPSV23 (PNEUMOVAX) Branch PPD (TB) 2001-10-04 Completed [facility] of 00:00:00 [facility] Pneumococcal 2001-10-04 Completed University o f Polysaccharide, 00:00:00 [place] [facility] PPSV23 (PNEUMOVAX) Branch PPD (TB) 2001-10-04 Completed [facility] of 00:00:00 [facility] Pneumococcal 2001-10-04 Completed University o f Polysaccharide, 00:00:00 [place] [facility] PPSV23 (PNEUMOVAX) Branch PPD (TB) 2001-10-04 Completed [facility] of 00:00:00 [facility] Pneumococcal 2001-10-04 Completed [facility] o f Polysaccharide, 00:00:00 [place] [facility] [...] of 00:00:00 [facility] Pneumococcal 2001-10-04 Completed [facility] o f Polysaccharide, 00:00:00 [place] [facility] PPSV23 (PNEUMOVAX) Branch PPD (TB) 2001-10-04 Completed [facility] of 00:00:00 [facility] Pneumococcal 2001-10-04 Completed University o f Polysaccharide, 00:00:00 [place] [facility] PPSV23 (PNEUMOVAX) Branch PPD (TB) 2001-10-04 Completed University of 00:00:00 [facility] Vital Signs Vital Name Observation Time Observation Value Comments Source Systolic blood 2022-05-10 22:00:00 159 mm[Hg] Univer sity of pressure [facility] Diastolic blood 2022-05-10 22:00:00 87 mm[Hg] Unive rsity of pressure [facility] Heart rate 2022-05-10 22:00:00 56 /min [facility] Body temperature 2022-05-10 22:00:00 36.61 Amina [facility] 2022-05-10 22:00:00 17 /min [facility] Oxygen saturation in 2022-05-10 22:00:00 98 /min University of Arterial blood by [facility] Pulse oximetry Branch Body weight 2022-05-10 16:29:00 78.926 kg [facility] BMI 2022-05-10 16:29:00 29.87 kg/m2 [facility] Systolic blood 2022-05-08 22:30:00 168 mm[Hg] Univer sity of pressure [facility] Diastolic blood 2022-05-08 22:30:00 85 mm[Hg] Unive rsity of pressure [facility] Heart rate 2022-05-08 22:30:00 68 /min [facility] Oxygen saturation in 2022-05-08 22:30:00 100 /min University of Arterial blood by [facility] Pulse oximetry Branch Body temperature 2022-05-08 22:22:00 35.89 Amina [facility] Respiratory rate 2022-05-08 22:22:00 14 /min [facility] ers[facility] Body weight 2022-05-08 22:22:00 78.926 kg [facility] BMI 2022-05-08 22:22:00 29.87 kg/m2 [facility] Systolic blood 2022-05-07 00:00:00 149 mm[Hg] Univer sity of pressure [facility] Diastolic blood 2022-05-07 00:00:00 132 mm[Hg] Unive rsity of pressure [facility] Heart rate 2022-05-07 00:00:00 59 /min [facility] Respiratory rate 2022-05-07 00:00:00 14 /min [facility] Oxygen saturation in 2022-05-07 00:00:00 99 /min [facility] of Arterial blood by [facility] Pulse oximetry Branch Body temperature 2022-05-06 20:12:00 36.5 Amina [facility] Body height 2022-05-06 20:12:00 162.6 cm [facility] Body weight 2022-05-06 20:12:00 78.926 kg [facility] BMI 2022-05-06 20:12:00 29.87 kg/m2 [facility] Systolic blood 2022-04-22 19:50:00 156 mm[Hg] Univer sity of pressure [facility] Diastolic blood 2022-04-22 19:50:00 89 mm[Hg] Unive rsity of pressure [facility] Heart rate 2022-04-22 19:50:00 69 /min [facility] Body temperature 2022-04-22 19:50:00 36.67 Amnia [facility] Respiratory rate 2022-04-22 19:50:00 17 /min [facility] of [facility] Body height 2022-04-22 19:50:00 162.6 cm [facility] Body weight 2022-04-22 19:50:00 80.74 kg [facility] BMI 2022-04-22 19:50:00 30.55 kg/m2 [facility] Oxygen saturation in 2022-04-22 19:50:00 96 /min [facility] of Arterial blood by [facility] Pulse oximetry Branch Systolic blood 2022-03-05 15:23:00 167 mm[Hg] Univer sity of pressure [facility] Diastolic blood 2022-03-05 15:23:00 105 mm[Hg] Unive rsity of pressure [facility] Heart rate 2022-03-05 15:23:00 49 /min [facility] Body temperature 2022-03-05 15:18:00 36.67 Amina [facility] Respiratory rate 2022-03-05 15:18:00 18 /min [facility] Body height 2022-03-05 15:18:00 162.6 cm [facility] Body weight 2022-03-05 15:18:00 74.707 kg [facility] BMI 2022-03-05 15:18:00 28.27 kg/m2 [facility] Systolic blood 2022-02-16 21:41:00 169 mm[Hg] [facility] Diastolic blood 2022-02-16 21:41:00 86 mm[Hg] [facility] Heart rate 2022-02-16 21:41:00 51 /min [facility] Body temperature 2022-02-16 21:41:00 36.56 Amina [facility] Respiratory rate 2022-02-16 21:41:00 17 /min [facility] Oxygen saturation in 2022-02-16 21:41:00 98 /min [facility] Arterial blood by [facility] Pulse oximetry Branch Body height 2022-02-11 16:02:00 162.6 cm [facility] Body weight 2022-02-11 16:02:00 79.379 kg [facility] BMI 2022-02-11 16:02:00 30.04 kg/m2 [facility] Systolic blood 2021-11-20 13:47:00 165 mm[Hg] [facility] Diastolic blood 2021-11-20 13:47:00 83 mm[Hg] [facility] Heart rate 2021-11-20 13:47:00 58 /min [facility] Body temperature 2021-11-20 13:42:00 36.39 Amina [facility] Respiratory rate 2021-11-20 13:42:00 16 /min [facility] Body height 2021-11-20 13:42:00 162.6 cm [facility] Body weight 2021-11-20 13:42:00 84.369 kg [facility] BMI 2021-11-20 13:42:00 31.93 kg/m2 [facility] Systolic blood 2021-07-14 15:18:00 142 [...] 15:23:00 167 mm[Hg] [facility] Diastolic blood 2022-03-05 15:23:00 105 mm[Hg] [facility] Heart rate 2022-03-05 15:23:00 49 /min [facility] Body temperature 2022-03-05 15:18:00 36.67 Amina [facility] Respiratory rate 2022-03-05 15:18:00 18 /min [facility] Body height 2022-03-05 15:18:00 162.6 cm [facility] Body weight 2022-03-05 15:18:00 74.707 kg [facility] BMI 2022-03-05 15:18:00 28.27 kg/m2 [facility] Oxygen saturation in 2022-02-16 21:41:00 98 /min [facility]terial blood by [facility] Pulse oximetry Branch Systolic blood 2020-12-08 15:48:00 125 mm[Hg] Method ist [facility] pressure Diastolic blood 2020-12-08 15:48:00 76 mm[Hg] [facility] pressure Heart rate 2020-12-08 15:48:00 64 /min [facility] Body temperature 2020-12-08 15:48:00 36.61 Amina [facility] Respiratory rate 2020-12-08 15:48:00 17 /min [facility] Body height 2020-12-08 15:48:00 162.6 cm [facility] Body weight 2020-12-08 15:48:00 98.884 [facility] BMI 2020-12-08 15:48:00 37.42 kg/m2 [facility] Oxygen saturation in 2020-12-08 15:48:00 97 /min [facility] Arterial blood by Pulse oximetry Respitory Rate 2020-08-30 13:00:00 Memori al [place] Systolic (mm Hg) 2020-08-30 13:00:00 Caesar rial [place] Diastolic (mm Hg) 2020-08-30 13:00:00 Mem orial Marty Systolic (mm Hg) 2020-08-30 11:00:00 Caesar rial Marty Diastolic (mm Hg) 2020-08-30 11:00:00 Mem orial Marty Temperature Oral (F) 2020-08-30 11:00:00 98.4 F [facility] Respitory Rate 2020-08-30 11:00:00 Memori al [facility] Respitory Rate 2020-08-30 10:00:00 [facility] [place] Systolic (mm Hg) 2020-08-30 10:00:00 Caesar rial [facility] Diastolic (mm Hg) 2020-08-30 10:00:00 Mem orial [place] Temperature Oral (F) 2020-08-30 00:00:00 96.9 F [facility] Temperature Oral (F) 2020-08-29 11:26:00 97.6 F [facility] Height 2020-08-29 10:30:00 162.56 cm [facility] Weight 2020-08-29 10:30:00 [facility] BMI Calculated 2020-08-29 10:30:00 Darien Hammond Procedures Procedure Date / Time Performing Clinician Source Performed URINALYSIS 2022-05-10 19:36:00 Home Matthews [facility] TROPONIN I 2022-05-10 18:34:00 Home Matthews [facility] COMP. METABOLIC PANEL 2022-05-10 18:34:00 Home Matthews [facility] ([id number]) [facility] CBC WITH DIFF 2022-05-10 18:34:00 Home Matthews [facility] XR CHEST 2 VW 2022-05-10 17:24:58 Home Matthews [facility] CONSENT/REFUSAL FOR 2022-05-10 16:26:23 Doctor Unasimone, [facility] DIAGNOSIS AND TREATMENT [place] [facility] CONSENT/REFUSAL FOR 2022-05-10 16:26:09 Doctor Unasimone, [facility] DIAGNOSIS AND TREATMENT [place] [facility] URINALYSIS 2022-05-08 22:43:00 Theresa Hickman [facility] XR CHEST 2 VW 2022-05-06 22:56:53 Anette Olea [facility] COMP. METABOLIC PANEL 2022-05-06 22:14:00 Anette Olea [facility] ([id number]) Medical Branch CBC WITH DIFF 2022-05-06 22:14:00 Anette Olea [facility] COVID-19 (ID NOW RAPID 2022-05-06 22:14:00 Anette Olea [facility] TESTING) Medical Branch BASIC METABOLIC PANEL (NA, 2022-04-22 21:23:00 Paulette Gray [facility] K, CL, CO2, GLUCOSE, BUN, Medica l Branch CREATININE, CA) CBC WITH DIFF 2022-04-22 21:23:00 Paulette Gray [facility] CONSENT/REFUSAL FOR 2022-04-22 19:45:46 Doctor Unasimone [facility] SARS-[facility]OV[facility]2 COVID-19 2022-03-05 16:09:27 Ronald [facility] DIMITRIS-SUCROSE VACCINE [address] [place] [address] YRS+, BIVALENT 0.3ML, IM, (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) FLU 2022-03-05 16:09:27 [facility] VACC(),65+YR,0.5 Medica l Branch ML,IM,ADJUVANTED,QUAD(FLUA D) FLU 2022-03-05 16:09:27 [facility] VACC(),65+YR,0.5 Medica l Branch ML,IM,ADJUVANTED,QUAD(FLUA D) SARS-COV-2 COVID-19 2022-03-05 16:09:27 [facility] DIMITRIS-SUCROSE VACCINE [address] [place] [address] YRS+, BIVALENT 0.3ML, IM, (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) MAGNESIUM 2022-02-15 09:41:00 Radha Sofia [facility] BASIC METABOLIC PANEL (NA, 2022-02-15 09:41:00 Radha [facility] K, CL, CO2, GLUCOSE, BUN, Medica l Branch CREATININE, CA) CBC WITH DIFF 2022-02-15 09:41:00 Radha [facility] N-TERMINAL PRO-BNP 2022-02-15 09:41:00 Sofia Garcia [facility] CBC WITH DIFF 2022-02-15 09:41:00 Radha Sofia [facility] BASIC METABOLIC PANEL (NA, 2022-02-15 09:41:00 Sofia Garcia [facility] K, CL, CO2, GLUCOSE, BUN, Medica l Branch CREATININE, CA) MAGNESIUM 2022-02-15 09:41:00 Radha [facility] N-TERMINAL PRO-BNP 2022-02-15 09:41:00 Sofia Garcia [facility] BASIC METABOLIC PANEL (NA, 2022-02-13 09:40:00 Sofia Garcia [facility] K, CL, CO2, GLUCOSE, BUN, Medica l Branch CREATININE, CA) CBC WITH DIFF 2022-02-13 09:40:00 Radha Sofia [facility] BASIC METABOLIC PANEL (NA, 2022-02-13 09:40:00 Sofia Garcia [facility] K, CL, CO2, GLUCOSE, BUN, Medica l Branch CREATININE, CA) CBC WITH DIFF 2022-02-13 09:40:00 Radha [facility] TROPONIN I 2022-02-11 23:41:00 Radha [facility] N-TERMINAL PRO-BNP 2022-02-11 23:41:00 Sofia Garcia [facility] TROPONIN I 2022-02-11 23:41:00 Radha [facility] N-TERMINAL PRO-BNP 2022-02-11 23:41[facility]00 [facility]M 2022-02-11 22:15:36 Sofia Garcia [facility] TRANSTHORACIC ECHO (TTE) 2022-02-11 21:26:50 [facility] 2022-02-11 21:26:50 [facility]EL[facility] W 2022-02-11 07:45:43 Miguelangel [facility] CONTRAST [facility] CT ABDOMEN PELVIS W 2022-02-11 07:45:[address] [facility] RAPID INFLUENZA A/B 2022-02-11 06:54:00 Miguelangel [facility] RAPID INFLUENZA A/B 2022-02-11 06:54:00 Reilly Means [facility] URINALYSIS 2022-02-11 06:45:00 Reilly Means [facility] URINE CULTURE 2022-02-11 06:45:00 Miguelangel [facility] URINALYSIS 2022-02-11 06:45:00 Reilly Means [facility] URINE CULTURE 2022-02-11 06:45:00 Miguelangel [facility] HB ECG ROUTINE & RHYTHM 2022-02-11 05:22:08 Reilly Means [facility] HB ECG ROUTINE & RHYTHM 2022-02-11 05:22:08 Reilly Means [facility] BLOOD CULTURE SCREEN 2022-02-11 04:58:00 Reilly Means [facility] TROPONIN I 2022-02-11 04:58:00 Reilly Means [facility] COMP. METABOLIC PANEL 2022-02-11 04:58:00 Reilly Means [facility] ([id number]) Medical Branch CBC WITH DIFF 2022-02-11 04:58:00 Reilly Means [facility] PROTHROMBIN TIME / INR 2022-02-11 04:58:00 [facility]illy [facility] ACTIVATED PARTIAL THRMPLAS 2022-02-11 04:58:00 Reilly Means [facility] N-TERMINAL PRO-BNP 2022-02-11 04:58:00 Reilly Means [facility] LACTIC ACID WHOLE BLOOD 2022-02-11 04:58:00 Reilly Means [facility] COVID-19 (ID NOW RAPID 2022-02-11 04:58:00 Reilly Means [facility] TESTING) Medical Branch LAB ONLY COVID 2022-02-11 04:58:00 Reilly Measn [facility] CBC WITH DIFF 2022-02-11 04:58:00 Reilly Means [facility] ACTIVATED PARTIAL THRMPLAS 2022-02-11 04:58:00 Reilly Means [facility] PROTHROMBIN TIME / INR 2022-02-11 04:58:00 Reilly [facility] COVID-19 (ID NOW RAPID 2022-02-11 04:58:00 Reilly Means [facility] TESTING) Medical Branch COMP. METABOLIC PANEL 2022-02-11 04:58:00 Reilly Means [facility] ([id number]) Medical Branch TROPONIN I 2022-02-11 04:58:00 Reilly Means [facility] N-TERMINAL PRO-BNP 2022-02-11 04:58:00 Reilly Means [facility] BLOOD CULTURE SCREEN 2022-02-11 04:58:00 Reilly Means [facility] LACTIC ACID WHOLE BLOOD 2022-02-11 04:58:00 Reilly Means [facility] LAB ONLY COVID 2022-02-11 04:58:00 Reilly Means [facility] INTERPRETATION [facility] XR CHEST 1 VW 2022-02-11 04:27:42 Miguelangel [facility] XR CHEST 1 VW 2022-02-11 04:27:42 Reilly Means [facility] HOSPITAL ADMISSION 2022-02-10 05:01:00 Doctor Unassigned, [facility] [place] [facility] HOSPITAL ADMISSION 2022-02-10 05:01:00 Doctor Unassigned, [facility] Center Name [facility] ECG 12-LEAD 2021-07-14 15:14:00 Elan Lira [facility] [id number] 2021-06-17 00:00:00 RIKY Freedman [facility] GASTROINTESTINAL PANEL 2020-12-08 22:21:00 Eliseo Arce [facility] XR ABDOMEN 1 VW 2020-12-08 18:06:32 Eliseo Arce spital OR [place] < 1 HOUR 2020-09-05 22:39:00 Eliseo Arce spital SURGICAL PATHOLOGY REQUEST 2020-09-05 21:54:00 Eliseo Arce [facility] XR CHEST 1 VW PORTABLE 2020-09-05 19:55:00 Eliseo Arce [facility] DISCHARGE PATIENT 2020-09-05 17:27:55 Lucas Harris [facility] VA AN ELECTIVE 2020-09-05 16:47:23 Kirit Flood [facility] ENDOTRACHEAL AIRWAY EGD, INTRAOPERATIVE 2020-09-05 16:27:[address] [facility] 2020-09-05 15:04:00 Sarai Maharaj [facility] TIME (PTT) M. PROTHROMBIN TIME WITH INR 2020-09-05 15:04:00 Mindy Maharaj [facility] M. Plan of Care Planned Activity Planned Date Details Comments Source Future Scheduled 2022-05-10 SHINGLES VACCINES (1 Met [facility] Test 10:21:35 of 2) [code = SHINGLES VACCINES (1 of 2)] Future Scheduled 2022-05-10 BREAST CANCER [facility] Test 10:21:35 SCREENING [code = BREAST CANCER SCREENING] Future Scheduled 2022-05-10 COLONOSCOPY SCREENING [facility] Test 10:21:35 [code = COLONOSCOPY SCREENING] Future Scheduled 2022-05-10 HEPATITIS B VACCINES Met [facility] Test 10:21:35 (1 of 3 - Risk 3-dose series) [code = HEPATITIS B VACCINES (1 of 3 - Risk 3-dose series)] Future Scheduled 2022-05-10 COVID-19 VACCINE ([facility] Test 10:21:35 Booster for Pfizer series) [code = COVID-19 VACCINE (3 - Booster for Pfizer series)] Future Scheduled 2022-05-10 65+ PNEUMOCOCCAL [facility] Test 10:21:35 VACCINE (4 - PPSV23 if available, else PCV20) [code = 65+ PNEUMOCOCCAL VACCINE (4 - PPSV23 if available, else PCV20)] Future Scheduled 2022-05-10 INFLUENZA VACCINE [facility] Test 10:21:35 [code = INFLUENZA VACCINE] Future Scheduled 2022-05-10 SHINGLES VACCINES (1 Met [facility] Test 10:21:35 of 2) [code = SHINGLES VACCINES (1 of 2)] Future Scheduled 2022-05-10 BREAST CANCER [facility] Test 10:21:35 SCREENING [code = BREAST CANCER SCREENING] Future Scheduled 2022-05-10 COLONOSCOPY SCREENING [facility] Test 10:21:35 [code = COLONOSCOPY SCREENING] Future Scheduled 2022-05-10 HEPATITIS B VACCINES Met [facility] Test 10:21:35 (1 of 3 - Risk 3-dose series) [code = HEPATITIS B VACCINES (1 of 3 - Risk 3-dose series)] Future Scheduled 2022-05-10 COVID-19 VACCINE ([facility] - [facility] Test 10:21:35 Booster for Pfizer series) [code = COVID-19 VACCINE (3 - Booster for Pfizer series)] Future Scheduled 2022-05-10 65+ [facility]:21:35 VACCINE (4 - PPSV23 if available, else PCV20) [code = 65+ PNEUMOCOCCAL VACCINE (4 - PPSV23 if available, else PCV20)] Future Scheduled 2022-05-10 INFLUENZA VACCINE Method [facility] Test 10:21:35 [code = INFLUENZA VACCINE] Future Scheduled 2022-05-06 SHINGLES VACCINES (1 Met [facility] Test 14:03:13 of 2) [code = SHINGLES VACCINES (1 of 2)] Future Scheduled 2022-05-06 BREAST CANCER [facility] Test 14:03:13 SCREENING [code = BREAST CANCER SCREENING] Future Scheduled 2022-05-06 COLONOSCOPY SCREENING [facility] Test 14:03:13 [code = COLONOSCOPY SCREENING] Future Scheduled 2022-05-06 HEPATITIS B VACCINES [facility] Test 14:03:13 (1 of 3 - Risk 3-dose series) [code = HEPATITIS B VACCINES (1 of 3 - Risk 3-dose series)] Future Scheduled 2022-05-06 COVID-19 VACCINE (3 - [facility] Test 14:03:13 Booster for Pfizer series) [code = COVID-19 VACCINE (3 - Booster for Pfizer series)] Future Scheduled 2022-05-06 65+ PNEUMOCOCCAL [facility] Test 14:03:13 VACCINE (4 - PPSV23 if available, else PCV20) [code = 65+ PNEUMOCOCCAL VACCINE (4 - PPSV23 if available, else PCV20)] Future Scheduled 2022-05-06 INFLUENZA VACCINE Method [facility] Test 14:03:13 [code = INFLUENZA VACCINE] Future Scheduled 2022-04-30 SHINGLES VACCINES (1 Met [facility] Test 01:07:32 of 2) [code = SHINGLES VACCINES (1 of 2)] Future Scheduled 2022-04-30 BREAST CANCER [facility] Test 01:07:32 SCREENING [code = BREAST CANCER SCREENING] Future Scheduled 2022-04-30 COLONOSCOPY SCREENING [facility] Test 01:07:32 [code = COLONOSCOPY SCREENING] Future Scheduled 2022-04-30 HEPATITIS B VACCINES Met [facility] Test 01:07:32 (1 of 3 - Risk 3-dose series) [code = HEPATITIS B VACCINES (1 of 3 - Risk 3-dose series)] Future Scheduled 2022-04-30 COVID-19 VACCINE (3 - [facility] Test 01:07:32 Booster for Pfizer series) [code = COVID-19 VACCINE (3 - Booster for Pfizer series)] Future Scheduled 2022-04-30 65+ PNEUMOCOCCAL [facility] Test 01:07:32 VACCINE (4 - PPSV23 if available, else PCV20) [code = 65+ PNEUMOCOCCAL VACCINE (4 - PPSV23 if available, else PCV20)] Future Scheduled 2022-04-30 INFLUENZA VACCINE Method [facility] Test 01:07:32 [code = INFLUENZA VACCINE] Future Scheduled 2022-04-30 SHINGLES VACCINES (1 Met [facility] Test 01:07:32 of 2) [code = SHINGLES VACCINES (1 of 2)] Future Scheduled 2022-04-30 BREAST CANCER [facility] Test 01:07:32 SCREENING [code = BREAST CANCER SCREENING] Future Scheduled 2022-04-30 COLONOSCOPY SCREENING [facility] Test 01:07:32 [code = COLONOSCOPY SCREENING] Future Scheduled 2022-04-30 HEPATITIS B VACCINES [facility] Test 01:07:32 (1 of 3 - Risk 3-dose series) [code = HEPATITIS B VACCINES (1 of 3 - Risk 3-dose series)] Future Scheduled 2022-04-30 COVID-19 VACCINE (3 - [facility] Test 01:07:32 Booster for Pfizer series) [code = COVID-19 VACCINE (3 - Booster for Pfizer series)] Future Scheduled 2022-04-30 65+ PNEUMOCOCCAL [facility] Test 01:07:32 VACCINE (4 - PPSV23 if available, else PCV20) [code = 65+ PNEUMOCOCCAL VACCINE (4 - PPSV23 if available, else PCV20)] Future Scheduled 2022-04-30 INFLUENZA VACCINE Method [facility] Test 01:07:32 [code = INFLUENZA VACCINE] Future Scheduled 2022-04-30 SHINGLES VACCINES (1 Met [facility] Test 01:07:32 of 2) [code = SHINGLES VACCINES (1 of 2)] Future Scheduled 2022-04-30 BREAST CANCER [facility] Test 01:07:32 SCREENING [code = BREAST CANCER SCREENING] Future Scheduled 2022-04-30 COLONOSCOPY SCREENING [facility] Test 01:07:32 [code = COLONOSCOPY SCREENING] Future Scheduled 2022-04-30 HEPATITIS B VACCINES Met [facility] Test 01:07:32 (1 of 3 - Risk 3-dose series) [code = HEPATITIS B VACCINES (1 of 3 - Risk 3-dose series)] Future Scheduled 2022-04-30 COVID-19 VACCINE ([facility] Test 01:07:32 Booster for Pfizer series) [code = COVID-19 VACCINE (3 - Booster for Pfizer series)] Future Scheduled 2022-04-30 65+ [facility]AL [facility] 01:07:32 VACCINE (4 - PPSV23 if available, else PCV20) [code = 65+ PNEUMOCOCCAL VACCINE (4 - PPSV23 if available, else PCV20)] Future Scheduled 2022-04-30 INFLUENZA VACCINE [facility] Test 01:07:32 [code = INFLUENZA VACCINE] Future Scheduled 2022-04-25 SHINGLES VACCINES (1 Met [facility] Test 01:45:02 of 2) [code = SHINGLES VACCINES (1 of 2)] Future Scheduled 2022-04-25 BREAST CANCER [facility] Test 01:45:02 SCREENING [code = BREAST CANCER SCREENING] Future Scheduled 2022-04-25 COLONOSCOPY SCREENING [facility] Test 01:45:02 [code = COLONOSCOPY SCREENING] Future Scheduled 2022-04-25 HEPATITIS B VACCINES [facility] Test 01:45:02 (1 of 3 - Risk 3-dose series) [code = HEPATITIS B VACCINES (1 of 3 - Risk 3-dose series)] Future Scheduled 2022-04-25 COVID-19 VACCINE (3 - [facility] Test 01:45:02 Booster for Pfizer series) [code = COVID-19 VACCINE (3 - Booster for Pfizer series)] Future Scheduled 2022-04-25 65+ PNEUMOCOCCAL [facility] Test 01:45:02 VACCINE (4 - PPSV23 if available, else PCV20) [code = 65+ PNEUMOCOCCAL VACCINE (4 - PPSV23 if available, else PCV20)] Future Scheduled 2022-04-25 INFLUENZA VACCINE Method [facility] Test 01:45:02 [code = INFLUENZA VACCINE] Future Scheduled 2022-03-25 SHINGLES VACCINES (1 Met [facility] Test 14:48:42 of 2) [code = SHINGLES VACCINES (1 of 2)] Future Scheduled 2022-03-25 BREAST CANCER [facility] Test 14:48:42 SCREENING [code = BREAST CANCER SCREENING] Future Scheduled 2022-03-25 COLONOSCOPY SCREENING [facility] Test 14:48:42 [code = COLONOSCOPY SCREENING] Future Scheduled 2022-03-25 HEPATITIS B VACCINES [facility] Test 14:48:42 (1 of 3 - Risk 3-dose series) [code = HEPATITIS B VACCINES (1 of 3 - Risk 3-dose series)] Future Scheduled 2022-03-25 COVID-19 VACCINE ([facility] Test 14:48:42 Booster for Pfizer series) [code = COVID-19 VACCINE (3 - Booster for Pfizer series)] Future Scheduled 2022-03-25 65+ PNEUMOCOCCAL [facility] Test 14:48:42 VACCINE (4 - PPSV23 if available, else PCV20) [code = 65+ PNEUMOCOCCAL VACCINE (4 - PPSV23 if available, else PCV20)] Future Scheduled 2022-03-25 INFLUENZA VACCINE [facility] Test 14:48:42 [code = INFLUENZA VACCINE] Future Scheduled 2022-03-25 SHINGLES VACCINES (1 Met [facility] Test 14:48:42 of 2) [code = SHINGLES VACCINES (1 of 2)] Future Scheduled 2022-03-25 BREAST CANCER [facility] Test 14:48:42 SCREENING [code = BREAST CANCER SCREENING] Future Scheduled 2022-03-25 COLONOSCOPY SCREENING [facility] Test 14:48:42 [code = COLONOSCOPY SCREENING] Future Scheduled 2022-03-25 HEPATITIS B VACCINES [facility] Test 14:48:42 (1 of 3 - Risk 3-dose series) [code = HEPATITIS B VACCINES (1 of 3 - Risk 3-dose series)] Future Scheduled 2022-03-25 COVID-19 VACCINE (3 - [facility] Test 14:48:42 Booster for Pfizer series) [code = COVID-19 VACCINE (3 - Booster for Pfizer series)] Future Scheduled 2022-03-25 65+ [facility]AL [facility] 14:48:42 VACCINE (4 - PPSV23 if available, else PCV20) [code = 65+ PNEUMOCOCCAL VACCINE (4 - PPSV23 if available, else PCV20)] Future Scheduled 2022-03-25 INFLUENZA VACCINE Method [facility] Test 14:48:42 [code = INFLUENZA VACCINE] Future Scheduled 2022-03-25 SHINGLES VACCINES (1 Met [facility] Test 14:48:42 of 2) [code = SHINGLES VACCINES (1 of 2)] Future Scheduled 2022-03-25 BREAST CANCER [facility] Test 14:48:42 SCREENING [code = BREAST CANCER SCREENING] Future Scheduled 2022-03-25 [facility] Test 14:48:42 [code = COLONOSCOPY SCREENING] Future Scheduled 2022-03-25 HEPATITIS B VACCINES [facility] Test 14:48:42 (1 of 3 - Risk 3-dose series) [code = HEPATITIS B VACCINES (1 of 3 - Risk 3-dose series)] Future Scheduled 2022-03-25 COVID-19 VACCINE (3 - [facility] Test 14:48:42 Booster for Pfizer series) [code = COVID-19 VACCINE (3 - Booster for Pfizer series)] Future Scheduled 2022-03-25 65+ [facility]AL [facility] Test 14:48:42 VACCINE (4 - PPSV23 if available, else PCV20) [code = 65+ PNEUMOCOCCAL VACCINE (4 - PPSV23 if available, else PCV20)] Future Scheduled 2022-03-25 INFLUENZA VACCINE [facility] Test 14:48:42 [code = INFLUENZA VACCINE] Future Scheduled 2022-03-25 SHINGLES VACCINES (1 Met [facility] Test 14:48:42 of 2) [code = SHINGLES VACCINES (1 of 2)] Future Scheduled 2022-03-25 BREAST CANCER [facility] Test 14:48:42 SCREENING [code = BREAST CANCER SCREENING] Future Scheduled 2022-03-25 COLONOSCOPY SCREENING [facility] Test 14:48:42 [code = COLONOSCOPY SCREENING] Future Scheduled 2022-03-25 HEPATITIS B VACCINES Met [facility] Test 14:48:42 (1 of 3 - Risk 3-dose series) [code = HEPATITIS B VACCINES (1 of 3 - Risk 3-dose series)] Future Scheduled 2022-03-25 COVID-19 VACCINE (3 - [facility] Test 14:48:42 Booster for Pfizer series) [code = COVID-19 VACCINE (3 - Booster for Pfizer series)] Future Scheduled 2022-03-25 65+ [facility]AL [facility] Test 14:48:42 VACCINE (4 - PPSV23 if available, else PCV20) [code = 65+ PNEUMOCOCCAL VACCINE (4 - PPSV23 if available, else PCV20)] Future Scheduled 2022-03-25 INFLUENZA VACCINE Method [facility] Test 14:48:42 [code = INFLUENZA VACCINE] Future Scheduled 2022-03-25 SHINGLES VACCINES (1 Met [facility] Test 14:48:42 of 2) [code = SHINGLES VACCINES (1 of 2)] Future Scheduled 2022-03-25 BREAST CANCER [facility] Test 14:48:42 SCREENING [code = BREAST CANCER SCREENING] Future Scheduled 2022-03-25 COLONOSCOPY SCREENING [facility] Test 14:48:42 [code = COLONOSCOPY SCREENING] Future Scheduled 2022-03-25 HEPATITIS B VACCINES Met [facility] Test 14:48:42 (1 of 3 - Risk 3-dose series) [code = HEPATITIS B VACCINES (1 of 3 - Risk 3-dose series)] Future Scheduled 2022-03-25 COVID-19 VACCINE (3 - [facility] Test 14:48:42 Booster for Pfizer series) [code = COVID-19 VACCINE (3 - Booster for Pfizer series)] Future Scheduled 2022-03-25 65+ [facility]AL [facility] Test 14:48:42 VACCINE (4 - PPSV23 if available, else PCV20) [code = 65+ PNEUMOCOCCAL VACCINE (4 - PPSV23 if available, else PCV20)] Future Scheduled 2022-03-25 INFLUENZA VACCINE Method [facility] Test 14:48:42 [code = INFLUENZA VACCINE] Future Scheduled 2022-03-25 SHINGLES VACCINES (1 Met [facility] Test 14:48:42 of 2) [code = SHINGLES VACCINES (1 of 2)] Future Scheduled 2022-03-25 BREAST CANCER [facility] Test 14:48:42 SCREENING [code = BREAST CANCER SCREENING] Future Scheduled 2022-03-25 COLONOSCOPY SCREENING [facility] Test 14:48:42 [code = COLONOSCOPY SCREENING] Future Scheduled 2022-03-25 HEPATITIS B VACCINES Met [facility] Test 14:48:42 (1 of 3 - Risk 3-dose series) [code = HEPATITIS B VACCINES (1 of 3 - Risk 3-dose series)] Future Scheduled 2022-03-25 COVID-19 VACCINE (3 - [facility] Test 14:48:42 Booster for Pfizer series) [code = COVID-19 VACCINE (3 - Booster for Pfizer series)] Future Scheduled 2022-03-25 65+ [facility]AL [facility] Test 14:48:42 VACCINE (4 - PPSV23 if available, else PCV20) [code = 65+ PNEUMOCOCCAL VACCINE (4 - PPSV23 if available, else PCV20)] Future Scheduled 2022-03-25 INFLUENZA VACCINE Method [facility] Test 14:48:42 [code = INFLUENZA VACCINE] Future Scheduled 2022-03-25 SHINGLES VACCINES (1 Met [facility] Test 14:48:42 of 2) [code = SHINGLES VACCINES (1 of 2)] Future Scheduled 2022-03-25 BREAST CANCER [facility] Test 14:48:42 SCREENING [code = BREAST CANCER SCREENING] Future Scheduled 2022-03-25 COLONOSCOPY SCREENING [facility] Test 14:48:42 [code = COLONOSCOPY SCREENING] Future Scheduled 2022-03-25 HEPATITIS B VACCINES Met [facility] Test 14:48:42 (1 of 3 - Risk 3-dose series) [code = HEPATITIS B VACCINES (1 of 3 - Risk 3-dose series)] Future Scheduled 2022-03-25 [facility] Test 14:48:42 Booster for Pfizer series) [code = COVID-19 VACCINE (3 - Booster for Pfizer series)] Future Scheduled 2022-03-25 65+ [facility]AL [facility] Test 14:48:42 VACCINE (4 - PPSV23 if available, else PCV20) [code = 65+ PNEUMOCOCCAL VACCINE (4 - PPSV23 if available, else PCV20)] Future Scheduled 2022-03-25 INFLUENZA VACCINE Method [facility] Test 14:48:42 [code = INFLUENZA VACCINE] Future Scheduled 2022-03-25 SHINGLES VACCINES (1 Met [facility] Test 14:48:42 of 2) [code = SHINGLES VACCINES (1 of 2)] Future Scheduled 2022-03-25 BREAST CANCER [facility] Test 14:48:42 SCREENING [code = BREAST CANCER SCREENING] Future Scheduled 2022-03-25 COLONOSCOPY SCREENING [facility] Test 14:48:42 [code = COLONOSCOPY SCREENING] Future Scheduled 2022-03-25 HEPATITIS B VACCINES Met [facility] Test 14:48:42 (1 of 3 - Risk 3-dose series) [code = HEPATITIS B VACCINES (1 of 3 - Risk 3-dose series)] Future Scheduled 2022-03-25 COVID-19 VACCINE (3 - [facility] Test 14:48:42 Booster for Pfizer series) [code = COVID-19 VACCINE (3 - Booster for Pfizer series)] Future Scheduled 2022-03-25 65+ PNEUMOCOCCAL [facility] Test 14:48:42 VACCINE (4 - PPSV23 if available, else PCV20) [code = 65+ PNEUMOCOCCAL VACCINE (4 - PPSV23 if available, else PCV20)] Future Scheduled 2022-03-25 INFLUENZA VACCINE Method [facility] Test 14:48:42 [code = INFLUENZA VACCINE] Future Scheduled 2022-03-25 SHINGLES VACCINES (1 Met [facility] Test 14:48:42 of 2) [code = SHINGLES VACCINES (1 of 2)] Future Scheduled 2022-03-25 BREAST CANCER [facility] Test 14:48:42 SCREENING [code = BREAST CANCER SCREENING] Future Scheduled 2022-03-25 COLONOSCOPY SCREENING [facility] Test 14:48:42 [code = COLONOSCOPY SCREENING] Future Scheduled 2022-03-25 HEPATITIS B VACCINES Met [facility] Test 14:48:42 (1 of 3 - Risk 3-dose series) [code = HEPATITIS B VACCINES (1 of 3 - Risk 3-dose series)] Future Scheduled 2022-03-25 COVID-19 VACCINE (3 - [facility] Test 14:48:42 Booster for Pfizer series) [code = COVID-19 VACCINE (3 - Booster for Pfizer series)] Future Scheduled 2022-03-25 65+ PNEUMOCOCCAL [facility] Test 14:48:42 VACCINE (4 - PPSV23 if available, else PCV20) [code = 65+ PNEUMOCOCCAL VACCINE (4 - PPSV23 if available, else PCV20)] Future Scheduled 2022-03-25 INFLUENZA VACCINE Method [facility] Test 14:48:42 [code = INFLUENZA VACCINE] Future Scheduled 2022-03-04 SHINGLES VACCINES (1 Met [facility] Test 14:03:57 of 2) [code = SHINGLES VACCINES (1 of 2)] Future Scheduled 2022-03-04 BREAST CANCER [facility] Test 14:03:57 SCREENING [code = BREAST CANCER SCREENING] Future Scheduled 2022-03-04 COLONOSCOPY SCREENING [facility] Test 14:03:57 [code = COLONOSCOPY SCREENING] Future Scheduled 2022-03-04 HEPATITIS B VACCINES Met [facility] Test 14:03:57 (1 of 3 - Risk 3-dose series) [code = HEPATITIS B VACCINES (1 of 3 - Risk 3-dose series)] Future Scheduled 2022-03-04 COVID-19 VACCINE (3 - [facility] Test 14:03:57 Booster for Pfizer series) [code = COVID-19 VACCINE (3 - Booster for Pfizer series)] Future Scheduled 2022-03-04 65+ PNEUMOCOCCAL [facility] Test 14:03:57 VACCINE (4 - PPSV23 if available, else PCV20) [code = 65+ PNEUMOCOCCAL VACCINE (4 - PPSV23 if available, else PCV20)] Future Scheduled 2022-03-04 INFLUENZA VACCINE Method [facility] Test 14:03:57 [code = INFLUENZA VACCINE] Future Scheduled 2022-03-04 SHINGLES VACCINES (1 Met [facility] Test 14:03:57 of 2) [code = SHINGLES VACCINES (1 of 2)] Future Scheduled 2022-03-04 BREAST CANCER [facility] Test 14:03:57 SCREENING [code = BREAST CANCER SCREENING] Future Scheduled 2022-03-04 COLONOSCOPY SCREENING [facility] Test 14:03:57 [code = COLONOSCOPY SCREENING] Future Scheduled 2022-03-04 HEPATITIS B VACCINES Met [facility] Test 14:03:57 (1 of 3 - Risk 3-dose series) [code = HEPATITIS B VACCINES (1 of 3 - Risk 3-dose series)] Future Scheduled 2022-03-04 COVID-19 VACCINE (3 - [facility] Test 14:03:57 Booster for Pfizer series) [code = COVID-19 VACCINE (3 - Booster for Pfizer series)] Future Scheduled 2022-03-04 65+ PNEUMOCOCCAL [facility] Test 14:03:57 VACCINE (4 - PPSV23 if available, else PCV20) [code = 65+ PNEUMOCOCCAL VACCINE (4 - PPSV23 if available, else PCV20)] Future Scheduled 2022-03-04 INFLUENZA VACCINE Method [facility] Test 14:03:57 [code = INFLUENZA VACCINE] Future Scheduled 2022-03-04 SHINGLES VACCINES (1 Met [facility] Test 14:03:57 of 2) [code = SHINGLES VACCINES (1 of 2)] Future Scheduled 2022-03-04 BREAST CANCER [facility] Test 14:03:57 SCREENING [code = BREAST CANCER SCREENING] Future Scheduled 2022-03-04 COLONOSCOPY SCREENING [facility] Test 14:03:57 [code = COLONOSCOPY SCREENING] Future Scheduled 2022-03-04 HEPATITIS B VACCINES Met [facility] Test 14:03:57 (1 of 3 - Risk 3-dose series) [code = HEPATITIS B VACCINES (1 of 3 - Risk 3-dose series)] Future Scheduled 2022-03-04 [facility]-19 [facility]ACC[facility] Test 14:03:57 Booster for Pfizer series) [code = COVID-19 VACCINE (3 - Booster for Pfizer series)] Future Scheduled 2022-03-04 65+ [facility] Test 14:03:57 VACCINE (4 - PPSV23 if available, else PCV20) [code = 65+ PNEUMOCOCCAL VACCINE (4 - PPSV23 if available, else PCV20)] Future Scheduled 2022-03-04 INFLUENZA VACCINE Method [facility] Test 14:03:57 [code = INFLUENZA VACCINE] Future Scheduled 2022-03-04 SHINGLES VACCINES (1 Met [facility] Test 14:03:57 of 2) [code = SHINGLES VACCINES (1 of 2)] Future Scheduled 2022-03-04 BREAST CANCER [facility] Test 14:03:57 SCREENING [code = BREAST CANCER SCREENING] Future Scheduled 2022-03-04 COLONOSCOPY SCREENING [facility] Test 14:03:57 [code = COLONOSCOPY SCREENING] Future Scheduled 2022-03-04 HEPATITIS B VACCINES Met [facility] Test 14:03:57 (1 of 3 - Risk 3-dose series) [code = HEPATITIS B VACCINES (1 of 3 - Risk 3-dose series)] Future Scheduled 2022-03-04 COVID-19 VACCINE (3 - [facility] Test 14:03:57 Booster for Pfizer series) [code = COVID-19 VACCINE (3 - Booster for Pfizer series)] Future Scheduled 2022-03-04 65+ [facility]AL [facility] Test 14:03:57 VACCINE (4 - PPSV23 if available, else PCV20) [code = 65+ PNEUMOCOCCAL VACCINE (4 - PPSV23 if available, else PCV20)] Future Scheduled 2022-03-04 INFLUENZA VACCINE Method [facility] Test 14:03:57 [code = INFLUENZA VACCINE] Future Scheduled 2022-02-11 SHINGLES VACCINES (1 Met [facility] Test 13:39:12 of 2) [code = SHINGLES VACCINES (1 of 2)] Future Scheduled 2022-02-11 BREAST CANCER [facility] Test 13:39:12 SCREENING [code = BREAST CANCER SCREENING] Future Scheduled 2022-02-11 COLONOSCOPY SCREENING [facility] Test 13:39:12 [code = COLONOSCOPY SCREENING] Future Scheduled 2022-02-11 HEPATITIS B VACCINES Met [facility] Test 13:39:12 (1 of 3 - Risk 3-dose series) [code = HEPATITIS B VACCINES (1 of 3 - Risk 3-dose series)] Future Scheduled 2022-02-11 COVID-19 VACCINE [facility] Test 13:39:12 Booster for Pfizer series) [code = COVID-19 VACCINE (3 - Booster for Pfizer series)] Future Scheduled 2022-02-11 65+ PNEUMOCOCCAL [facility] Test 13:39:12 VACCINE (4 - PPSV23 or PCV20) [code = 65+ PNEUMOCOCCAL VACCINE (4 - PPSV23 or PCV20)] Future Scheduled 2022-02-11 INFLUENZA VACCINE Method [facility] Test 13:39:12 [code = INFLUENZA VACCINE] Future Scheduled 2022-01-29 SHINGLES VACCINES (1 Met [facility] Test 14:07:20 of 2) [code = SHINGLES VACCINES (1 of 2)] Future Scheduled 2022-01-29 BREAST CANCER [facility] Test 14:07:20 SCREENING [code = BREAST CANCER SCREENING] Future Scheduled 2022-01-29 COLONOSCOPY SCREENING [facility] Test 14:07:20 [code = COLONOSCOPY SCREENING] Future Scheduled 2022-01-29 HEPATITIS B VACCINES Met [facility] Test 14:07:20 (1 of 3 - Risk 3-dose series) [code = HEPATITIS B VACCINES (1 of 3 - Risk 3-dose series)] Future Scheduled 2022-01-29 COVID-19 VACCINE (3 - [facility] Test 14:07:20 Booster for Pfizer series) [code = COVID-19 VACCINE (3 - Booster for Pfizer series)] Future Scheduled 2022-01-29 65+ [facility]AL [facility] Test 14:07:20 VACCINE (4 - PPSV23 or PCV20) [code = 65+ PNEUMOCOCCAL VACCINE (4 - PPSV23 or PCV20)] Future Scheduled 2022-01-29 INFLUENZA VACCINE Method [facility] Test 14:07:20 [code = INFLUENZA VACCINE] Future Scheduled 2022-01-29 SHINGLES VACCINES (1 Met [facility] Test 14:07:20 of 2) [code = SHINGLES VACCINES (1 of 2)] Future Scheduled 2022-01-29 BREAST CANCER [facility] Test 14:07:20 SCREENING [code = BREAST CANCER SCREENING] Future Scheduled 2022-01-29 COLONOSCOPY SCREENING [facility] Test 14:07:20 [code = COLONOSCOPY SCREENING] Future Scheduled 2022-01-29 HEPATITIS B VACCINES Met [facility] Test 14:07:20 (1 of 3 - Risk 3-dose series) [code = HEPATITIS B VACCINES (1 of 3 - Risk 3-dose series)] Future Scheduled 2022-01-29 COVID-19 VACCINE (3 - [facility] Test 14:07:20 Booster for Pfizer series) [code = COVID-19 VACCINE (3 - Booster for Pfizer series)] Future Scheduled 2022-01-29 65+ PNEUMOCOCCAL [facility] Test 14:07:20 VACCINE (4 - PPSV23 or PCV20) [code = 65+ PNEUMOCOCCAL VACCINE (4 - PPSV23 or PCV20)] Future Scheduled 2022-01-29 INFLUENZA VACCINE Method [facility] Test 14:07:20 [code = INFLUENZA VACCINE] Future Scheduled 2022-01-29 SHINGLES VACCINES (1 Met [facility] Test 14:07:20 of 2) [code = SHINGLES VACCINES (1 of 2)] Future Scheduled 2022-01-29 BREAST CANCER [facility] Test 14:07:20 SCREENING [code = BREAST CANCER SCREENING] Future Scheduled 2022-01-29 COLONOSCOPY SCREENING [facility] Test 14:07:20 [code = COLONOSCOPY SCREENING] Future Scheduled 2022-01-29 HEPATITIS B VACCINES Met [facility] Test 14:07:20 (1 of 3 - Risk 3-dose series) [code = HEPATITIS B VACCINES (1 of 3 - Risk 3-dose series)] Future Scheduled 2022-01-29 COVID-19 VACCINE (3 - [facility] Test 14:07:20 Booster for Pfizer series) [code = COVID-19 VACCINE (3 - Booster for Pfizer series)] Future Scheduled 2022-01-29 65+ PNEUMOCOCCAL [facility] Test 14:07:20 VACCINE (4 - PPSV23 or PCV20) [code = 65+ PNEUMOCOCCAL VACCINE (4 - PPSV23 or PCV20)] Future Scheduled 2022-01-29 INFLUENZA VACCINE Method [facility] Test 14:07:20 [code = INFLUENZA VACCINE] Future Scheduled 2022-01-29 SHINGLES VACCINES (1 Met [facility] Test 14:07:20 of 2) [code = SHINGLES VACCINES (1 of 2)] Future Scheduled 2022-01-29 BREAST CANCER [facility] Test 14:07:20 SCREENING [code = BREAST CANCER SCREENING] Future Scheduled 2022-01-29 COLONOSCOPY SCREENING [facility] Test 14:07:20 [code = COLONOSCOPY SCREENING] Future Scheduled 2022-01-29 HEPATITIS B VACCINES Met [facility] Test 14:07:20 (1 of 3 - Risk 3-dose series) [code = HEPATITIS B VACCINES (1 of 3 - Risk 3-dose series)] Future Scheduled 2022-01-29 COVID-19 VACCINE (3 - [facility] Test 14:07:20 Booster for Pfizer series) [code = COVID-19 VACCINE (3 - Booster for Pfizer series)] Future Scheduled 2022-01-29 65+ [facility]AL [facility] Test 14:07:20 VACCINE (4 - PPSV23 or PCV20) [code = 65+ PNEUMOCOCCAL VACCINE (4 - PPSV23 or PCV20)] Future Scheduled 2022-01-29 INFLUENZA VACCINE Method [facility] Test 14:07:20 [code = INFLUENZA VACCINE] Future Scheduled 2022-01-20 SHINGLES VACCINES (1 Met [facility] Test 06:12:34 of 2) [code = SHINGLES VACCINES (1 of 2)] Future Scheduled 2022-01-20 Screening for [facility] Test 06:12:34 malignant neoplasm of cervix (procedure) [code = [id number]] Future Scheduled 2022-01-20 BREAST CANCER [facility] Test 06:12:34 SCREENING [code = BREAST CANCER SCREENING] Future Scheduled 2022-01-20 COLONOSCOPY SCREENING [facility] Test 06:12:34 [code = COLONOSCOPY SCREENING] Future Scheduled 2022-01-20 HEPATITIS B VACCINES Met [facility] Test 06:12:34 (1 of 3 - Risk 3-dose series) [code = HEPATITIS B VACCINES (1 of 3 - Risk 3-dose series)] Future Scheduled 2022-01-20 COVID-19 [facility]ACCINE [facility] 06:12:34 Booster for Pfizer series) [code = COVID-19 VACCINE (3 - Booster for Pfizer series)] Future Scheduled 2022-01-20 65+ PNEUMOCOCCAL [facility] Test 06:12:34 VACCINE (4 - PPSV23 or PCV20) [code = 65+ PNEUMOCOCCAL VACCINE (4 - PPSV23 or PCV20)] Future Scheduled 2022-01-20 INFLUENZA VACCINE Method [facility] Test 06:12:34 [code = INFLUENZA VACCINE] Future Scheduled 2022-01-16 SHINGLES VACCINES (1 Met [facility] Test 12:09:25 of 2) [code = SHINGLES VACCINES (1 of 2)] Future Scheduled 2022-01-16 Screening for [facility] Test 12:09:25 malignant neoplasm of cervix (procedure) [code = [id number]] Future Scheduled 2022-01-16 BREAST CANCER [facility] Test 12:09:25 SCREENING [code = BREAST CANCER SCREENING] Future Scheduled 2022-01-16 COLONOSCOPY SCREENING [facility] Test 12:09:25 [code = COLONOSCOPY SCREENING] Future Scheduled 2022-01-16 HEPATITIS B VACCINES Met [facility] Test 12:09:25 (1 of 3 - Risk 3-dose series) [code = HEPATITIS B VACCINES (1 of 3 - Risk 3-dose series)] Future Scheduled 2022-01-16 COVID-19 VACCINE [facility] 12:09:25 Booster for Pfizer series) [code = COVID-19 VACCINE (3 - Booster for Pfizer series)] Future Scheduled 2022-01-16 65+ PNEUMOCOCCAL [facility] Test 12:09:25 VACCINE (4 - PPSV23 or PCV20) [code = 65+ PNEUMOCOCCAL VACCINE (4 - PPSV23 or PCV20)] Future Scheduled 2022-01-16 INFLUENZA VACCINE Method [facility] Test 12:09:25 [code = INFLUENZA VACCINE] Future Scheduled 2022-01-14 SHINGLES VACCINES (1 Met [facility] Test 04:11:46 of 2) [code = SHINGLES VACCINES (1 of 2)] Future Scheduled 2022-01-14 Screening for [facility] Test 04:11:46 malignant neoplasm of cervix (procedure) [code = [id number]] Future Scheduled 2022-01-14 BREAST CANCER [facility] Test 04:11:46 SCREENING [code = BREAST CANCER SCREENING] Future Scheduled 2022-01-14 COLONOSCOPY SCREENING [facility] Test 04:11:46 [code = COLONOSCOPY SCREENING] Future Scheduled 2022-01-14 HEPATITIS B VACCINES Met [facility] Test 04:11:46 (1 of 3 - Risk 3-dose series) [code = HEPATITIS B VACCINES (1 of 3 - Risk 3-dose series)] Future Scheduled 2022-01-14 COVID-19 VACCINE (3 - [facility] Test 04:11:46 Booster for Pfizer series) [code = COVID-19 VACCINE (3 - Booster for Pfizer series)] Future Scheduled 2022-01-14 65+ PNEUMOCOCCAL [facility] Test 04:11:46 VACCINE (4 - PPSV23 or PCV20) [code = 65+ PNEUMOCOCCAL VACCINE (4 - PPSV23 or PCV20)] Future Scheduled 2022-01-14 INFLUENZA VACCINE Method [facility] Test 04:11:46 [code = INFLUENZA VACCINE] Future Scheduled 2021-08-26 Screening for [facility] Test 13:02:23 malignant neoplasm of cervix (procedure) [code = [id number]] Future Scheduled 2021-08-26 BREAST CANCER [facility] Test 13:02:23 SCREENING [code = BREAST CANCER SCREENING] Future Scheduled 2021-08-26 COLONOSCOPY SCREENING [facility] Test 13:02:23 [code = COLONOSCOPY SCREENING] Future Scheduled 2021-08-26 Screening for [facility] Test 13:02:23 malignant neoplasm of lung (procedure) [code = [id number]] Future Scheduled 2021-08-26 SHINGLES VACCINES (#1) [facility] Test 13:02:23 [code = SHINGLES VACCINES (#1)] Future Scheduled 2021-08-26 COVID-19 VACCINE (3 - [facility] Test 13:02:23 Pfizer risk 4-dose series) [code = COVID-19 VACCINE (3 - Pfizer risk 4-dose series)] Future Scheduled 2021-08-26 65+ [facility]AL [facility] Test 13:02:23 VACCINE (4 of 4 - PPSV23) [code = 65+ PNEUMOCOCCAL VACCINE (4 of 4 - PPSV23)] Future Scheduled 2021-08-26 [facility] 13:02:23 [code = INFLUENZA VACCINE] Encounters Start End Encounter Admission Attending Care Care Encounter Source Date/Time Date/Time Type Type Clinicians Facility Department ID 2022-02-18 Outpatient [facility] [id number] [place] 14:30:[address] [place] [address] and [facility] 2021-07-14 Outpatient SADIKOVIC, [facility] [id number] [place] 09:33:[address] [facility] 2021-06-02 Outpatient HEMATPOUR, [facility] [id number] [place] 13:58:59 [facility] 2021-04-28 Outpatient [facility], [facility] [id number] [place] 11:21:22 [facility] 2021-03-20 Emergency [facility] [id number] Univers 16:07:40 ity [facility] 2020-12-12 Outpatient [facility]EM[facility]OUR, [facility] [id number] [place] 08:16:46 [facility] 2020-10-31 Outpatient [facility], [facility] [id number] [place] 09:44:50 [facility] 2020-09-30 Outpatient [facility], [facility] [id number] [place] 13:16:03 [facility] 2022-05-20 2022-05-20 Telephone [facility], [facility] [id number] Univers 00:00:00 00:00:00 [facility] [id number] i [id number] [id number] [facility] [address] 2022-05-10 2022-05-10 Emergency X BYRON, [facility] ERT [id number] Univers 10:30:00 16:31:00 HOME ity of [facility] 2022-05-10 2022-05-10 Emergency Marvin, [facility] [id number] Univers 10:30:00 16:31:00 Home B CENTER [id number] [id number] [id number] [facility] [address] 2022-05-10 2022-05-10 Telephone [facility], [facility] [id number] Univers 00:00:00 00:00:00 [facility] [id number] [id number] [address] 2022-05-08 2022-05-08 Emergency [facility] [id number] Univers 16:18:00 18:42:00 THERESA barbosa [facility] 2022-05-08 2022-05-08 Emergency [facility] [id number] Univers 16:18:00 18:42:00 Theresa Ivelisse [place] [id number] ity of [place] [id number] [place] [facility] [id number] [address] 2022-05-07 2022-05-07 [facility]phone [facility] 1.2[facility]840.114 [id number] Univers 00:00:00 00:00:00 [facility] 350.1.13.10 i ty of [place] [id number] [address] 2022-05-06 2022-05-06 Emergency [facility] [id number] Univers 14:13:00 18:19:00 ANETTE barbosa [facility] 2022-05-06 2022-05-06 Emergency [facility] 1.2.838.029 [id number] Univers 14:13:00 18:19:00 Anette BULLOCK 350.1.13.10 ity [facility] 4.2.7.2.686 [facility] [id number] [address] 2022-05-06 2022-05-06 Telephone [facility] 1.2.840.114 99 [id number] Univers 00:00:00 00:00:00 [facility] 350.1.13.10 i ty [place] [id number] [address] 2022-04-22 2022-04-22 Emergency [facility] E[facility] [id number] Univers 13:55:00 17:00:00 PAULETTE [facility] 2022-04-22 2022-04-22 Emergency [facility] 1.2.270.421 [id number] [id number] Univers 13:55:00 17:00:00 Paulette CHAMBERSJEREMY 350.1.13.10 i ty of [place] 4.2.7.2.686 [facility] [id number] [place] 664594 [place] 2022-04-07 2022-04-07 Outpatient R [facility] [id number] Univers 20:40:00 20:40:00 ATTENDING ity [facility] 2022-04-07 2022-04-07 Telephone Devin, 1.2.840.2 [id number] [id number] Univers 00:00:00 00:00:00 Robbi Hairston 11218.1.1 i ty of 3.104.2.7 [place] .3.961648 Medica l .8 [place] 2022-03-05 2022-03-05 Data Integrity Specialist Santiago Cardenas 1.2.840.1 [id number] Univers 13:45:00 14:00:00 Visit [facility] 18932.1.1 ity of 3.104.2.7 [place] .3.345895 Medica l .8 [place] 2022-03-05 2022-03-05 Office Ronald JOSÉ ANTONIO 1.2.573.747 3825 8469 Univers 13:00:00 13:30:00 Visit Santiago [facility] 350.1.13.[address] [facility] 4.2.7.2.686 [facility] [id number] [address] 2022-03-05 2022-03-05 Outpatient [facility] [id number] Univers 13:00:00 13:00:00 [facility] 2022-02-26 2022-02-26 Outpatient R [facility] [id number] Univers 08:30:00 08:30:00 [facility] 2022-02-26 2022-02-26 Outpatient R [facility] [id number] Univers 08:30:00 08:30:00 [facility] 2022-02-17 2022-02-17 Transition Stevo, 1.2.840.0 [id number] Univers 00:00:00 00:00:00 of Care Isaias Maria Elena 33016.1.1 it y of 3.104.2.7 [place] .3.412595 Medica l .8 Branch 2022-02-10 2022-02-16 Inpatient X [facility] [id number] Univers 22:59:00 19:27:00 PETER ity of [facility] 2022-02-10 2022-02-16 [facility] Reilly Means 1.2.840.1 [id number] Univers 22:59:00 19:27:00 Encounter Ofe Shields 58861.1.1 ity of MarieTomy hairston 3.104.2.7 [place] .3.660714 Medica l .8 [place] 2022-02-11 2022-02-11 Telephone East, 1.2.840.1 [id number] [id number] Univers 00:00:00 00:00:00 Santiago 89379.1.1 ity of 3.104.2.7 [place] .3.761596 Medica l .8 Branch 2022-02-10 2022-02-10 Travel 1.2.840.1 1.2.880.422 9159 9827 Univers 00:00:00 00:00:00 10590.1.1 350.1.13.10 ity of 3.104.2.7 4.2.7.3.698 [place] .3.002980 084.8 Medica l .8 [place] 2022-01-30 2022-01-30 Telephone East, 1.2.840.3 [id number] [id number] Univers 00:00:00 00:00:00 Santiago 43868.1.1 ity of 3.104.2.7 [place] .3.950416 Medica l .8 Branch 2022-01-06 2022-01-06 Orders Doctor FERMIN 1.2.840.114 [id number] Univers 00:00:00 00:00:00 Only Unassigned, JACKELINE 350.1.13.10 ity of [place] [facility] 4.2.7.2.686 Yomi as [id number] [facility] 009 Branch 2021-12-25 2021-12-25 Orders Doctor FERMIN 1.2.840.114 [id number] Univers 00:00:00 00:00:00 Only Unassigned, JACKELINE 350.1.13.10 ity of [place] [facility] 4.2.7.2.686 Yomi as 119.3864652 [facility] 009 [place] 2021-12-12 2021-12-13 Emergency X Bill COLES [facility] ERT [id number] Univers 23:53:00 01:52:00 ity of [facility] 2021-12-12 2021-12-13 Emergency Bill Coles [facility] 1.2.840.114 [id number] Univers 23:53:00 01:52:00 Kiersten BULLOCK 350.1.13.10 i ty [place].7.2.[place] 121.4364751 [facility] 084 [place] 2021-11-20 2021-11-20 Data Integrity Specialist [facility] UNIVERSIT 1.2.840.114 9 [id number] Univers 09:45:00 10:00:00 Visit [facility] 350.1.13.10 ity of [place] [id number] [facility] 316 Branch 2021-11-20 2021-11-20 Office [facility] 1.2.824.853 4500 9084 Univers 08:30:00 09:00:00 Visit [facility] 350.1.13.[address] [facility] 4.[place].2.[place] 165.8570483 [facility] 089 [place] 2021-11-20 2021-11-20 Outpatient [facility] [id number] Univers 08:30:00 08:30:00 [facility] 2021-11-20 2021-11-20 Outpatient [facility] [id number] Univers 08:30:00 08:30:00 [facility] 2021-11-20 2021-11-20 Outpatient R [facility] [id number] Univers 08:30:00 08:30:00 SANTIAGO barbosa [facility] 2021-11-20 2021-11-20 Outpatient R EAST, [facility] [id number] Univers 08:30:00 08:30:00 SANTIAGO barbosa [facility] 2021-10-24 2021-10-24 Emergency X ESVIN [facility] ERT [id number] Univers 16:27:00 22:26:00 CHARITY barbosa [facility] 2021-10-24 2021-10-24 Emergency X ESVIN [facility] ERT [id number] Univers 16:27:00 22:26:00 CHARITY barbosa [facility] 2021-10-24 2021-10-24 Emergency Devante Meansnell [facility] 1.2.840. 114 [id number] Univers 16:27:00 22:26:00 Charity Mcallister 350.1.13.10 ity [facility] 4.2.7.2.686 [facility] [id number] [address] 2021-10-23 2021-10-24 Emergency [facility] [id number] Univers 20:22:00 02:57:00 CHARITY barbosa [facility] 2021-10-23 2021-10-24 Emergency [facility] 1.2.689.057 [id number] [id number] Univers 20:22:00 02:57:00 Char[facility] 350.1.13.10 ity [facility] 4.2.7.2.686 [facility] [id number] [address] 2021-09-07 2021-09-07 Outpatient R SELF, [facility] [id number] Univers 08:00:00 08:00:00 GADIELKEI rodas [facility] 2021-09-07 2021-09-07 Outpatient R SELF, [facility] [id number] Univers 08:00:00 08:00:00 GADIEL ity lela rodas [facility] 2021-08-21 2021-08-21 Outpatient R [facility] [id number] Univers 10:45:00 10:45:00 SANTIAGO barbosa [facility] 2021-08-21 2021-08-21 Data Integrity Specialist Santiago Cardenas 1.2.840.1 [id number] Univers 10:45:00 10:45:00 Visit [facility] 85349.1.1 ity of 3.104.2.7 [place] .3.340705 Medica l .8 [place] 2021-08-21 2021-08-21 Office East, 1.2.840.5 [id number] 516 Univers 08:30:00 09:00:00 Visit Santiago 16722.1.1 ity of 3.104.2.7 [place] .3.648919 Medica l .8 [place] 2021-08-21 2021-08-21 Office [facility], UNIVERSIT 1.2.328.624 6341 8516 Univers 08:30:00 09:00:00 Visit Santiago [facility] 350.1.13.10 i ty of [place] 4[place] 282.4951994 [facility] 089 [place] 2021-08-21 2021-08-21 Out[facility] [id number] Univers 08:30:00 08:30:00 SANTIAGO ity of [facility] 2021-08-21 2021-08-21 Travel 1.2.840.1 1.2.359.097 7065 3865 Univers 00:00:00 00:00:00 72599.1.1 350.1.13.10 ity of 3.104.2.7 4.[place].7.3.698 [place] .3.796054 084.8 Medica l .8 [place] 2021-08-14 2021-08-14 Telephone East, 1.2.840.5 [id number] Univers 00:00:00 00:00:00 Santiago 77709.1.1 ity of 3.104.2.7 [place] .3.834877 Medica l .8 [place] 2021-08-13 2021-08-13 Telephone East, 1.2.840.4 [id number] Univers 00:00:00 00:00:00 Santiago 35788.1.1 ity of 3.104.2.7 [place] .3.146996 [facility] 2021-08-11 2021-08-11 Outpatient R [facility] [id number] Univers 08:00:00 08:00:00 [facility] 2021-08-05 2021-08-05 Inpatient EDUARDO LealCL OUTD [id number] [facility] 05:24:00 05:24:00 Mike 31 [facility] 2021-07-20 2021-07-20 Outpatient R [facility] [id number] [facility] 10:00:00 10:00:00 [facility] 2021-07-14 2021-07-14 Office Pankaj, UTP 6400 1.2.840.114 13 [id number] [place] 08:45:00 09:34:[address] 350.1.13.58 Health 9.2.7.2.686 [id number] 1 2021-07-09 2021-07-09 Telephone [place], UTP 6400 1.2.840.114 [id number] [place] 00:00:00 00:00:[address] 350.1.13.58 Health 9.2.7.2.686 [id number] 1 2021-07-09 2021-07-09 Telephone [place], UTP 6400 1.2.840.114 [id number] [place] 00:00:00 00:00:[address] 350.1.13.58 Health 9.2.7.2.686 [id number] 1 2021-07-03 2021-07-03 Outpatient [facility] [id number] Univers 08:00:00 08:00:00 [facility] 2021-06-17 2021-06-17 Inpatient WINTER Leal INTE.02 [id number] [facility] 10:56:00 14:36:00 Mike 47 [facility] 2021-06-15 2021-06-15 Outpatient R [facility] [id number] Univers 10:15:00 11:07:21 GADIEL rodas [facility] 2021-06-15 2021-06-15 Outpatient R SELF, [facility] [id number] Univers 10:15:00 10:15:00 GADIEL rodas [facility] 2021-06-15 2021-06-15 Outpatient R SELF, [facility] [id number] Univers 10:15:00 10:15:00 GADIEL rodas [facility] 2021-06-15 2021-06-15 Orders Doctor 1.2.840.3 [id number] Univers 00:00:00 00:00:00 Only Unassigned, 48995.1.1 ity of [place] 3.104.2.7 [place] .3.062503 Medica l .8 [place] 2021-06-15 2021-06-15 Travel 1.2.840.1 1.2.149.240 5931 7719 Univers 00:00:00 00:00:00 32917.1.1 350.1.13.10 ity of 3.104.2.7 4.[place].7.3.698 [place] .3.865888 084.8 Medica l .8 [place] 2021-06-11 2021-06-11 Refill [facility], UN[facility]ERSIT 1.2.648.795 0405 9185 Univers 00:00:00 00:00:00 [facility] 350.1.13.10 i ty of CL[place] [id number] [facility] 089 [place] 2021-06-11 2021-06-11 Refill East, 1.2.840.1 [id number] 185 Univers 00:00:00 00:00:00 [place] 91736.1.1 ity of 3.104.2.7 [place] .3.824327 Medica l .8 Branch 2021-06-05 2021-06-05 Outpatient R EAST, [facility] [id number] Univers 09:00:00 09:00:00 SANTIAGO ity of [facility] 2021-06-02 2021-06-02 Telephone [facility], UNIVERSIT 1.2.840.114 [id number] Univers 00:00:00 00:00:00 Santiago Y HEALTH 350.1.13.10 i ty of [place] 4[place] [id number] [facility] 089 [place] 2021-06-02 2021-06-02 Telephone East, 1.2.840.5 [id number] [id number] Univers 00:00:00 00:00:00 Santiago 99155.1.1 ity of 3.104.2.7 [place] .3.337817 Medica l .8 [place] 2021-05-29 2021-05-29 Telephone East, 1.2.840.4 [id number] 902 [id number] Univers 00:00:00 00:00:00 Santiago 03876.1.1 ity of 3.104.2.7 [place] .3.793927 Medica l .8 [place] 2021-05-29 2021-05-29 Telephone East, 1.2.840.6 [id number] [id number] Univers 00:00:00 00:00:00 Santiago 03328.1.1 ity of 3.104.2.7 [place] .3.696415 Medica l .8 [place] 2021-05-25 2021-05-25 Outpatient R RODO, [facility] [id number] Univers 08:00:00 08:00:00 GADIEL rodas [facility] 2021-04-29 2021-04-29 Outpatient R LALA, [facility] [id number] Univers 08:00:00 08:00:00 NIKOLAI barbosa [facility] 2021-04-28 2021-04-28 Telephone [place], UTP 6400 1.2.840.114 [id number] [place] 00:00:00 00:00:00 Maríac[address]rieamaris [address] 350.1.13.58 Health 9.2.7.2.686 [id number] 2021-04-28 2021-04-28 Telephone Jailyn, 1.2.840.1 [id number] Methodi 00:00:00 00:00:[address] 3.430.2.7 Hospit a .3.214527 l .8 2021-03-31 2021-03-31 Orders Carol Ann, 1.2.840.1 [id number] Methodi 00:00:00 00:00:00 Only Sarai Lieberman 50084.1.1 979 s t 3.430.2.7 Hospit a .3.980783 l .8 2021-03-30 2021-03-30 Outpatient R RODO, [facility] [id number] Univers 08:45:00 08:45:00 GADIEL ity o f [facility] 2021-03-24 2021-03-24 Telephone Jailyn, 1.2.840.7 [id number] 21 [id number] Methodi 00:00:00 00:00:[address] 3.430.2.7 Hospit a .3.591201 l .8 2021-02-13 2021-02-13 Telephone Ronald, 1.2.840.5 [id number] 876 [id number] [facility] 00:00:00 00:00:00 Santiago 36021.1.1 ity of 3.104.2.7 [place] .3.278609 Medica l .8 [place] 2021-01-28 2021-01-28 Outpatient [facility] [id number] Univers 08:45:00 09:37:00 NIKOLAI ity of [facility] 2021-01-28 2021-01-28 Travel 1.2.840.1 1.2.185.940 6098 9777 Univers 00:00:00 00:00:00 87347.1.1 350.1.13.10 ity of 3.104.2.7 4.[place].7.3.698 [place] .3.862251 084.8 Medica l .8 [place] 2021-01-19 2021-01-19 Telephone Prabhu 1.2.840.1 [id number] 2100 [id number] Methodi 00:00:00 00:00:[address] 3.430.2.7 Hospit a .3.507087 l .8 2021-01-04 2021-01-04 Dmitry Bass, 1.2.840.9 [id number] 696 Univers 00:00:00 00:00:00 (Out) Dagoberto H 67603.1.1 ity of 3.104.2.7 [place] .3.878533 Medica l .8 Branch 2021-01-04 2021-01-04 Dmitry Bass, 1.2.840.8 [id number] 696 Univers 00:00:00 00:00:00 (Out) Dagoberto H 46561.1.1 ity of 3.104.2.7 [place] .3.609482 Medica l .8 Branch 2021-01-03 2021-01-03 Dmitry Bass, 1.2.840.3 [id number] 790 Univers 00:00:00 00:00:00 (Out) Dagoberto H 93704.1.1 ity of 3.104.2.7 [place] .3.508139 Medica l .8 [place] 2021-01-03 2021-01-03 Dmitry Bass, 1.2.840.2 [id number] 790 Univers 00:00:00 00:00:00 (Out) Dagoberto H 75927.1.1 ity of 3.104.2.7 [place] .3.499407 Medica l .8 [place] 2021-01-02 2021-01-02 Outpatient R [facility] [id number] Univers 13:40:00 13:40:00 ity of [facility] 2021-01-02 2021-01-02 Laboratory Cuba Franks 1.2.840.0 [id number] Univers 12:14:13 12:57:34 Only Lab, [place] 95395.1.1 ity of 3.104.2.7 [place] .3.462157 Medica l .8 Branch 2021-01-02 2021-01-02 Laboratory [place] Franks 1.2.840.9 [id number] [id number] Univers 12:14:13 12:57:34 Only Lab, Adc Fam [place]ob I 81508.1.1 ity of 3.104.2.7 [place] .3.839512 Medica l .8 [place] 2021-01-02 2021-01-02 Travel 1.2.840.1 1.2.106.620 0996 2306 Univers 00:00:00 00:00:00 36070.1.1 350.1.13.10 ity of 3.104.2.7 4.[place].7.3.698 [place] .3.278711 084.8 Medica l .8 [place] 2021-01-02 2021-01-02 Letter Doctor 1.2.840.1 [id number] 948 Univers 00:00:00 00:00:00 (Out) Unassigned, 16767.1.1 ity of [place] 3.104.2.7 [place] .3.375566 Medica l .8 [place] 2021-01-02 2021-01-02 Letter Doctor 1.2.840.5 [id number] 01898 946 Univers 00:00:00 00:00:00 (Out) Unassigned, 65345.1.1 ity of [place] 3.104.2.7 [place] .3.760086 Medica l .8 [place] 2021-01-02 2021-01-02 Travel 1.2.840.1 1.2.152.212 2120 2306 Univers 00:00:00 00:00:00 28891.1.1 350.1.13.10 ity of 3.104.2.7 4.2.7.3.698 [place] .3.448456 084.8 Medica l .8 [place] 2021-01-02 2021-01-02 Letter Doctor 1.2.840.5 [id number] 948 Univers 00:00:00 00:00:00 (Out) Unassigned, 21400.1.1 ity of [place] 3.104.2.7 [place] .3.247697 Medica l .8 [place] 2021-01-02 2021-01-02 Letter Doctor 1.2.840.9 [id number] 946 Univers 00:00:00 00:00:00 (Out) Unassigned, 30288.1.1 ity of [place] 3.104.2.7 [place] .3.413240 Medica l .8 [place] 2020-12-22 2020-12-22 Telephone Beltran, 1.2.840.8 [id number] 862 [id number] Univers 00:00:00 00:00:00 Devina R 91129.1.1 i ty of 3.104.2.7 [place] .3.328577 Medica l .8 [place] 2020-12-22 2020-12-22 Telephone [place]an, 1.2.840.7 [id number] 862 07875 Univers 00:00:00 00:00:00 Eligionda R 40975.1.1 i ty of 3.104.2.7 [place] .3.022717 Medica l .8 [place] 2020-12-12 2020-12-12 Office [place], UTP 6400 1.2.840.114 12 [id number] [place] 07:42:02 08:18:[address] 350.1.13.58 Health 9.2.7.2.686 [id number] 1 2020-12-12 2020-12-12 Office [place], UTP 6400 1.2.840.114 12 [id number] 07:42:02 08:18:[address] 350.1.13.58 9.2.7.2.686 786.2082688 1 2020-12-09 2020-12-09 Telephone Carol Ann, 1.2.840.1 [id number] Methodi 00:00:00 00:00:00 Sarai Lieberman 61477.1.1 316 s t 3.430.2.7 Hospit a .3.954062 l .8 2020-12-08 2020-12-08 [facility], 1.2.840.1 [id number] 2100 610061 Methodi 12:35:54 23:59:00 Encounter Eliseo 21373.1.[address] 3.430.2.7 Hospit a .3.010049 l .8 2020-12-08 2020-12-08 [facility], 1.2.840.1 [id number] 81797 30426 Methodi 17:25:00 17:30:[address] 3.430.2.7 Hospit a .3.955483 l .8 2020-12-08 2020-12-08 Office Jailyn, 1.2.840.1 [id number] 87755 37555 Methodi 10:30:00 11:39:56 Visit Ray 21390.1.[address] 3.430.2.7 Hospit a .3.875487 l .8 2020-12-08 2020-12-08 Travel 1.2.840.1 1.2.142.122 3631 569972 Methodi 00:00:00 00:00:[address] 3.430.2.7 0.2.7.3.698 Ho spita .3.581564 084.8 l .8 2020-12-02 2020-12-02 Data Integrity Specialist Santiago Cardenas 1.2.840.1 [id number] [facility] 10:20:06 10:36:19 Visit [facility] 99854.1.1 ity of 3.104.2.7 [place] .3.149973 Medica l .8 [place] 2020-12-02 2020-12-02 Data Integrity Specialist Santiago Cardenas 1.2.840.1 [id number] [facility] 10:20:06 10:36:19 Visit c-Lab 98673.1.1 ity of 3.104.2.7 [place] .3.632802 Medica l .8 [place] 2020-12-02 2020-12-02 Data Integrity Specialist [facility] UNIVERSIT 1.2.840.114 8 [id number] 10:20:06 10:36:19 Visit [facility] 350.1.13.10 CLINICS 4.2.7.2.686 584.1714749 316 2020-12-02 2020-12-02 Office Ronlad .2.840.4 [id number] 528 [facility] 08:31:37 09:01:37 Visit Santiago 05370.1.1 ity of 3.104.2.7 [place] .3.106141 Medica l .8 [place] 2020-12-02 2020-12-02 Out[facility] [id number] Univers 09:00:00 09:00:00 SANTIAGO ity of [facility] 2020-11-25 2020-11-25 Office Devin, 1.2.840.5 [id number] 72684 865 Univers 11:06:30 11:58:14 Visit Robbi R 18821.1.1 i ty of 3.104.2.7 [place] .3.763232 Medica l .8 [place] 2020-11-25 2020-11-25 Office Beltran, 1.2.840.0 [id number] 13156 865 Univers 11:06:30 11:58:14 Visit Robbi R 64789.1.1 i ty of 3.104.2.7 [place] .3.747410 Medica l .8 [place] 2020-11-25 2020-11-25 [facility] 1.2.840.114 [id number] 65 11:06:30 11:58:14 Visit Eligiomeredith Hairston TELEPHONE TRIAGE NURSE 350.1.13.10 REGIONAL 4.2.7.2.686 MATERNAL 676.6362201 & CHILD [address] [place] [address] 2020-11-25 2020-11-25 Outpatient R [facility] [id number] Univers 11:00:00 11:00:00 ity of [facility] 2020-11-25 2020-11-25 Telephone Devin, 1.2.840.5 [id number] 855 [id number] Univers 00:00:00 00:00:00 Amarliisluisa R 15453.1.1 i ty of 3.104.2.7 [place] .3.768545 Medica l .8 [place] 2020-11-25 2020-11-25 Refill Ronald, 1.2.840.5 [id number] 08670 592 Univers 00:00:00 00:00:00 Santiago 13532.1.1 ity of 3.104.2.7 [place] .3.584135 Medica l .8 [place] 2020-11-25 2020-11-25 Travel 1.2.840.1 1.2.768.888 6111 0247 Univers 00:00:00 00:00:00 73620.1.1 350.1.13.10 ity of 3.104.2.7 4.2.7.3.698 [place] .3.405145 084.8 Medica l .8 Branch 2020-11-25 2020-11-25 Orders Doctor 1.2.840.0 [id number] 57223 064 Univers 00:00:00 00:00:00 Only Unassigned, 95207.1.1 ity of [place] 3.104.2.7 [place] .3.624497 Medica l .8 Branch 2020-11-25 2020-11-25 Telephone [place], 1.2.840.9 [id number] 855 08925 Univers 00:00:00 00:00:00 Robbi Hairston 16874.1.1 i ty of 3.104.2.7 [place] .3.713745 Medica l .8 [place] 2020-11-25 2020-11-25 Refill [place], 1.2.840.9 [id number] 15025 592 Univers 00:00:00 00:00:00 Santiago 36352.1.1 ity of 3.104.2.7 [place] .3.928357 Medica l .8 [place] 2020-11-25 2020-11-25 Travel 1.2.840.1 1.2.037.959 3952 0247 Univers 00:00:00 00:00:00 61375.1.1 350.1.13.10 ity of 3.104.2.7 4.[place]7.3.698 [place] .3.966463 084.8 Medica l .8 Branch 2020-11-25 2020-11-25 Orders Doctor 1.2.840.7 [id number] 064 Univers 00:00:00 00:00:00 Only Unassigned, 01505.1.1 ity of [place] 3.104.2.7 [place] .3.883984 Medica l .8 Branch 2020-11-25 2020-11-25 [facility] 1.2.361.628 3889 4592 00:00:00 00:00:00 [facility] 350.1.13.10 [facility] 4.2.7.2.686 [id number] 089 2020-11-25 2020-11-25 [facility] 1.2.969.197 3945 0821 00:00:00 00:00:00 Robbi Hairston TELEPHONE TRIAGE NURSE 350.1.13.10 [facility] 4.2.7.2.686 MATERNAL [phone] & CHILD [address] [place] [address] 2020-11-14 2020-11-14 Abstract Rodas, 1.2.840.1 [id number] 22280 Methodi 00:00:00 00:00:[address] 3.430.2.7 Hospit a .3.876779 l .8 2020-11-14 2020-11-14 Telephone Clark 1.2.840.1 [id number] 2100 [id number] Methodi 00:00:00 00:00:[address] 3.430.2.7 Hospit a .3.902349 l .8 2020-11-12 2020-11-12 Outpatient [facility] [id number] Univers 08:30:00 08:30:00 [facility] 2020-11-07 2020-11-07 Telephone Agustina Ortiz 6400 1.2.840.11 4 [id number] [place] 00:00:00 00:00:[address] 350.1.13.58 Health 9.2.7.2.686 [id number] 1 2020-11-07 2020-11-07 Telephone KIMBERLEY Ortiz 6400 1.2.840.114 124 [id number] 00:00:00 00:00:[address] 350.1.13.58 9.2.7.2.686 [id number] 1 2020-10-31 2020-10-31 Office HematKIMBERLEY hunter 6400 1.2.840.114 12 [id number] [place] 07:54:00 09:45:[address] 350.1.13.58 Health 9.2.7.2.686 [id number] 1 2020-10-30 2020-10-30 Abstract Rody Maguire UTP 6400 1.2.840.1 14 [id number] [place] 00:00:00 00:00:[address] 350.1.13.58 Health 9.2.7.2.686 [id number] 1 2020-10-29 2020-10-29 [place], 1.2.840.8 [id number] 400 Univers 00:00:00 00:00:00 [place] 63604.1.1 ity of 3.104.2.7 [place] .3.769871 Medica l .8 [place] 2020-10-29 2020-10-29 [place], 1.2.840.4 [id number] 12480 400 Univers 00:00:00 00:00:00 [place] 55509.1.1 ity of 3.104.2.7 [place] .3.458946 Medica l .8 [place] 2020-10-27 2020-10-27 Telephone Jailyn, 1.2.840.0 [id number] 21 [id number] Methodi 00:00:00 00:00:[address] 3.430.2.7 Hospit a .3.327963 l .8 2020-10-24 2020-10-24 Telephone Clark, 1.2.840.1 [id number] 2100 136818 Methodi 00:00:00 00:00:[address] 3.430.2.7 Hospit a .3.637368 l .8 2020-10-22 2020-10-22 Outpatient R RODO, [facility] [id number] [facility] 13:00:00 13:00:00 GADIEL rodas [facility] 2020-10-22 2020-10-22 Travel 1.2.840.1 1.2.647.603 6223 3839 Univers 00:00:00 00:00:00 64847.1.1 350.1.13.10 ity of 3.104.2.7 [place]7.3.698 [place] .3.808254 084.8 Medica l .8 Branch 2020-10-22 2020-10-22 Travel 1.2.840.1 1.2.681.675 9381 3839 Univers 00:00:00 00:00:00 40745.1.1 350.1.13.10 ity of 3.104.2.7 4[place]7.3.698 [place] .3.078806 084.8 Medica l .8 Branch 2020-10-13 2020-10-13 Outpatient Marika KOEHLER, [facility] [id number] Univers 08:45:00 08:45:00 GADIEL rodas [facility] 2020-10-06 2020-10-12 Telemedici Jailyn, 1.2.840.1 [id number] 21 [id number] Methodi 15:30:00 00:08:46 ne Ray 61018.1.[address] 3.430.2.7 Hospit a .3.995174 l .8 2020-09-30 2020-09-30 [facility] 1.2.840.9 [id number] Methodi 00:00:00 00:00:[address] 3.430.2.7 Hospit a .3.612606 l .8 2020-09-21 2020-09-21 Travel 1.2.840.1 1.2.310.883 4802 [id number] Methodi 00:00:00 00:00:[address] 3.430.2.7 0.2.7.3.698 [facility] spita .3.683449 084.8 l .8 2020-09-06 2020-09-06 [facility] 1.2.840.1 [id number] 08950 21368 Methodi 17:42:30 23:59:[address] 3.430.2.7 Hospit a .3.430235 l .8 2020-09-06 2020-09-06 [facility], 1.2.840.1 [id number] 2099 170050 Methodi 16:50:00 17:41:00 Encounter Ray 45107.1.[address] 3.430.2.7 Hospit a .3.429695 l .8 2020-09-05 2020-09-05 [facility], 1.2.840.1 [id number] Methodi 09:17:00 19:45:00 Encounter Ray [address]72.1.[address] 3.430.2.7 Hospit a .3.200613 l .8 2020-09-05 2020-09-05 Surgery [facility], 1.2.840.1 [id number] Methodi 11:30:00 13:15:[address] 3.430.2.7 Hospit a .3.969963 l .8 2020-09-05 2020-09-05 Anesthesia [facility], 1.2.840.1 [id number] Methodi 11:27:00 12:20:00 Event Kirit 94542.1.1 243 s t V. 3.430.2.7 Hospit a .3.214624 l .8 2020-09-05 2020-09-05 Travel 1.2.840.1 1.2.166.713 [id number] Methodi 00:00:00 00:00:[address] 3.430.2.7 0.2.7.3.698 Ho spita .3.930731 084.8 l .8 2020-09-04 2020-09-04 Telephone Carol Ann, 1.2.840.1 [id number] Methodi 00:00:00 00:00:00 Sarai Lieberman 20658.1.1 762 s t 3.430.2.7 Hospit a .3.642591 l .8 2020-09-02 2020-09-02 Telephone Carol Ann, 1.2.840.1 [id number] Methodi 00:00:00 00:00:00 Sarai CorbinChelsie 25672.1.1 344 s t 3.430.2.7 Hospit a .3.293495 l .8 2020-08-29 2020-08-30 Bedded [facility] hospital [id number] [facility] 10:20:00 14:10:00 Outpatient r [place] 00 l [facility] 2020-08-29 2020-08-30 Outpatient HEMATPOUR, [facility] CAR 7500 [facility] 05:20:00 09:10:00 [place] 2020-08-06 2020-08-06 Office [place], 1.2.840.3 [id number] Univers 08:03:23 09:17:49 Visit Santiago 48402.1.1 ity of 3.104.2.7 [place] .3.512780 Medica l .8 [place] 2020-08-06 2020-08-06 Outpatient R [facility] [id number] Univers 08:30:00 08:30:00 SANTIAGO ity of [facility] 2020-07-14 2020-07-14 Outpatient R SELF, [facility] [id number] Univers 09:30:00 09:30:00 GADIEL barbosa o f [facility] 2020-07-14 2020-07-14 Travel 1.2.840.1 1.2.931.444 [id number] [id number] Univers 00:00:00 00:00:00 38724.1.1 350.1.13.10 ity of 3.104.2.[place].698 [place].85[place] 084.8 Medica l .8 [place] 2020-07-14 2020-07-14 Orders Doctor 1.2.840.3 [id number] Univers 00:00:00 00:00:00 Only Unassigned, 83120.1.1 ity of [place] 3.104.2.7 [place] .3.419939 Medica l .8 [place] 2020-06-16 2020-06-16 Outpatient R SELF, [facility] [id number] Univers 08:00:00 08:00:00 GADIEL barbosa o f [facility] 2020-06-06 2020-06-06 Telephone East, 1.2.840.6 [id number] Univers 00:00:00 00:00:00 [place] 77236.1.1 ity of 3.104.2.7 [place] .3.745042 Medica l .8 [place] 2020-06-04 2020-06-04 Data Integrity Specialist [place] Cardenas 1.2.840.1 [id number] Univers 09:31:58 09:40:12 Visit [facility] 11471.1.1 ity of 3.104.2.7 [place] .3.222118 Medica l .8 [place] 2020-06-04 2020-06-04 Office [place], [facility] 1.2.878.615 [id number] Univers 08:13:41 09:28:25 Visit [place] [facility] 350.1.13.10 i ty of CLINICS [place] 463.4861653 [facility] porfirio 089 [place] 2020-06-04 2020-06-04 Outpatient R EAST, [facility] [id number] Univers 08:30:00 08:30:00 SANTIAGO barbosa of [facility] 2020-06-04 2020-06-04 Orders Doctor 1.2.840.1 [id number] Univers 00:00:00 00:00:00 Only Unassigned, 55112.1.1 ity of [place] 3.104.2.7 [place] .3.090119 Medica l .8 [place] 2020-05-19 2020-05-19 Telephone [place], 1.2.840.9 [id number] Univers 00:00:00 00:00:00 Santiago 35515.1.1 ity of 3.104.2.7 [place] .3.556512 Medica l .8 [place] 2020-04-24 2020-04-24 Telephone [place], 1.2.840.8 [id number] Univers 00:00:00 00:00:00 Santiago 51574.1.1 ity of 3.104.2.7 [place] .3.475973 Medica l .8 [place] 2020-04-14 2020-04-14 Outpatient R EAST, [facility] [id number] Univers 09:00:00 09:00:00 SANTIAGO ity of [facility] 2020-04-14 2020-04-14 Telephone East, 1.2.840.5 [id number] Univers 00:00:00 00:00:00 Santiago 30780.1.1 ity of 3.104.2.7 [place] .3.983260 Medica l .8 [place] 2020-03-31 2020-03-31 Outpatient R EAST, [facility] [id number] Univers 08:30:00 08:30:00 SANTIAGO ity of [facility] 2020-03-03 2020-03-03 Outpatient R SELF, [facility] [id number] Univers 08:00:00 08:00:00 GADIEL barbosa o f [facility] 2020-03-03 2020-03-03 Outpatient R SELF, [facility] [id number] Univers 08:00:00 08:00:00 GADIEL maciely o f [facility] 2020-03-03 2020-03-03 Travel 1.2.840.1 1.2.472.618 [id number] Univers 00:00:00 00:00:00 26355.1.1 350.1.13.10 ity of 3.104.2.[place]3.698 [place] .3.541660 084.8 Medica l .8 [place] 2020-02-06 2020-02-06 Telephone East, 1.2.840.4 [id number] Univers 00:00:00 00:00:00 [place] 39869.1.1 ity of 3.104.2.7 [place] .3.097866 Medica l .8 [place] 2020-01-26 2020-01-26 Emergency Caridad, 1.2.840.4 [id number] Univers 10:03:00 13:05:00 Cynhoward 77779.1.1 ity of 3.104.2.7 [place] .3.667883 Medica l .8 [place] 2020-01-26 2020-01-26 Travel 1.2.840.1 1.2.103.045 [id number] Univers 00:00:00 00:00:00 85783.1.1 350.1.13.10 ity of 3.104.2.[place].3.698 [place] .3.607084 084.8 Medica l .8 [place] 2020-01-25 2020-01-25 Outpatient R EAST, [facility] [id number] Univers 08:30:00 08:30:00 SANTIAGO ity [facility] 2020-01-25 2020-01-25 Telemedici [place], 1.2.840.2 [id number] Univers 07:36:49 08:06:49 ne Visit Santiago 26834.1.1 ity of 3.104.2.7 [place] .3.438887 Medica l .8 [place] 2020-01-16 2020-01-16 [facility] [id number] Univers 08:00:00 08:00:00 SANTIAGO ity [facility] 2020-01-16 2020-01-16 Telephone East, 1.2.840.1 [id number] Univers 00:00:00 00:00:00 [place] 01455.1.1 ity of 3.104.2.7 [place] .3.476107 Medica l .8 [place] 2020-01-14 2020-01-14 Outpatient R SELF, [facility] [id number] Univers 08:00:00 08:00:00 GADIEL rodas [facility] 2019-12-31 2019-12-31 Outpatient R SELF, [facility] [id number] Univers 08:45:00 08:45:00 GADIEL maciely o f [facility] 2019-10-17 2019-10-17 Outpatient [facility] [id number] Univers 08:30:00 08:30:00 SANTIAGO ity [facility] 2019-10-12 2019-10-12 Outpatient R [facility] [id number] Univers 13:00:00 13:00:00 SANTIAGO ity [facility] 2019-10-12 2019-10-12 Tele[facility] [place], 1.2.840.3 [id number] Univers 07:38:30 08:08:30 ne Visit Santiago 75307.1.1 ity of 3.104.2.7 [place] .3.860747 Medica l .8 [place] 2019-10-08 2019-10-08 Outpatient R SELF, [facility] [id number] Univers 10:15:00 10:15:00 GADIEL ity o f [facility] 2019-10-03 2019-10-03 Case Xiao, 1.2.840.4 [id number] Univers 00:00:00 00:00:00 Management Michael Corbin 99146.1.1 i ty of 3.104.2.7 [place] .3.139926 Medica l .8 [place] 2019-09-27 2019-09-27 Telephone East, 1.2.840.9 [id number] Univers 00:00:00 00:00:00 [place] 52309.1.1 ity of 3.104.2.7 [place] .3.376757 Medica l .8 [place] 2019-09-04 2019-09-04 Refill East, 1.2.840.6 [id number] Univers 00:00:00 00:00:00 Santiago 03184.1.1 ity of 3.104.2.7 [place] .3.773334 Medica l .8 [place] 2019-07-24 2019-07-24 Outpatient R [facility] [id number] Univers 08:30:00 08:30:00 SANTIAGO ity of [facility] 2019-07-17 2019-07-17 Outpatient R EAST, [facility] [id number] Univers 10:00:00 10:00:00 SANTIAGO ity [facility] 2019-06-15 2019-06-15 Telephone East, 1.2.840.2 [id number] Univers 00:00:00 00:00:00 [place] 55831.1.1 ity of 3.104.2.7 [place] .3.402477 Medica l .8 [place] 2019-06-13 2019-06-13 Telephone Team, [facility] 1.2.840.0 [id number] Univers 00:00:00 00:00:00 Health 81734.1.1 [place] .3.960986 Medica l .8 [place] 2019-05-10 2019-05-10 Refill Ronald, 1.2.840.2 [id number] Univers 00:00:00 00:00:00 [place] 85980.1.1 ity of 3.104.2.7 [place] .3.726145 Medica l .8 [place] 2019-05-09 2019-05-09 Refill Ronald, 1.2.840.6 [id number] Univers 00:00:00 00:00:00 [place] 28066.1.1 ity of 3.104.2.7 [place] .3.230201 Medica l .[address] [place] [address] 2019-04-30 2019-04-30 Outpatient R RODO, [facility] [id number] Univers 10:15:00 10:33:05 GADIEL ity o f [facility] 2019-04-18 2019-04-18 Data Integrity Specialist [place] Cardenas 1.2.840.1 [id number] Univers 10:00:39 10:44:31 Visit [facility] 11917.1.1 ity of 3.104.2.7 [place] .3.935347 Medica l .[address] [place] [address] 2019-04-18 2019-04-18 Outpatient R RONALD [facility] [id number] Univers 10:00:00 10:44:31 SANTIAGO ity of [facility] 2019-04-18 2019-04-18 Office Ronald, 1.2.840.3 [id number] Univers 08:27:44 09:53:27 Visit Santiago 22129.1.1 ity of 3.104.2.7 [place] .3.725320 Medica l .8 [place] 2019-04-18 2019-04-18 Orders Doctor 1.2.840.1 [id number] Univers 00:00:00 00:00:00 Only Unassigned, 05636.1.1 ity of [place] 3.104.2.7 [place] .3.193722 Medica l .8 [place] 2019-04-11 2019-04-11 Refill East, 1.2.840.3 [id number] Univers 00:00:00 00:00:00 [place] 77288.1.1 ity of 3.104.2.7 [place] .3.816407 Medica l .8 [place] 2019-04-09 2019-04-09 Refill East, 1.2.840.5 [id number] Univers 00:00:00 00:00:00 [place] 62144.1.1 ity of 3.104.2.7 [place] .3.235585 Medica l .8 [place] 2019-04-03 2019-04-03 Telephone Team, [facility] 1.2.840.7 [id number] Univers 00:00:00 00:00:00 Health 88820.1.1 [place].2.[place] .3.673900 Medica [place] .8 [place] 2019-03-27 2019-03-27 Telephone Self, 1.2.840.9 [id number] [id number] Univers 00:00:00 00:00:00 Gadiel 21620.1.1 ity of 3.104.2.7 [place] .3.680885 Medica l .8 [place] 2019-01-17 2019-01-17 Office Ronald, 1.2.840.0 [id number] Univers 07:37:21 10:32:51 Visit Santiago 61443.1.1 ity of 3.104.2.7 [place] .3.866482 Medica l .8 [place] 2019-01-04 2019-01-12 Office Eveline Hansen 1.2.840.6 [id number] Univers 11:19:32 11:08:05 Visit Mariela 39969.1.1 ity of 3.104.2.7 [place] .3.632146 Medica l .8 [place] 2019-01-10 2019-01-10 Telephone Gitejay, 1.2.840.1 [id number] Univers 00:00:00 00:00:00 Eladio Inman 43884.1.1 ity of 3.104.2.7 [place] .3.891779 Medica l .8 [place] 2018-12-18 2018-12-18 Office Geraldine, 1.2.840.5 [id number] Univers 08:48:45 09:13:43 Visit Leyad 96275.1.1 it y of 3.104.2.7 [place] .3.893805 Medica l .8 [place] 2018-10-30 2018-10-30 Telephone East, 1.2.840.0 [id number] Univers 00:00:00 00:00:00 [place] 30181.1.1 ity of 3.104.2.7 [place] .3.171861 Medica l .8 [place] 2018-10-23 2018-10-23 Orders Doctor 1.2.840.9 [id number] Univers 00:00:00 00:00:00 Only Unassigned, 27968.1.1 ity of [place] 3.104.2.7 [place] .3.099255 Medica l .8 [place] 2018-10-23 2018-10-23 Nurse Selvin, 1.2.840.3 [id number] Univers 00:00:00 00:00:00 Triage Stefanie 24001.1.1 ity of 3.104.2.7 [place] .3.751244 Medica l .8 [place] 2018-10-23 2018-10-23 Telephone Self, 1.2.840.4 [id number] Univers 00:00:00 00:00:00 Gadiel 92964.1.1 ity of 3.104.2.7 [place] .3.175818 Medica l .8 [place] 2018-10-20 2018-10-20 Telephone Self, 1.2.840.5 [id number] Univers 00:00:00 00:00:00 Gadiel 32592.1.1 ity of 3.104.2.7 [place] .3.974519 Medica l .8 [place] Results Test Description Test Time Test Comments Results Result Comments Source COMP. METABOLIC PANEL [id number] 2022-05-06 22:42:55 Test Item Value Reference Range Interpretation Comme nts NA (test code = 4662317634) 137 mmol/L 135-145 K (test code = 5956680548) 3.2 mmol/L 3.5-5.0 L CL (test code = 1992866902) 100 mmol/L 98-108 CO2 TOTAL (test code = 7943914928) 23 mmol/L 23-31 AGAP (test code = 5687932467) 2-16 BUN (test code = 2822954455) 41 mg/dL 7-23 H GLUCOSE (test code = 4906632536) 98 mg/dL 70-110 CREATININE (test code = 1.55 mg/dL 0.50-1.04 H 1397727790) TOTAL BILI (test code = 0.8 mg/dL 0.1-1.0 4735075702) CALCIUM (test code = 6321400481) 8.3 mg/dL 8.6-10.6 L T PROTEIN (test code = 4340009323) 6.9 g/dL 6.3-8.2 ALBUMIN (test code = 6286233277) 3.9 g/dL 3.5-5.0 ALK PHOS (test code = 6426413549) 89 U/L 34-122 ALTv (test code = 1742-6) 101 U/L 5-35 H AST(SGOT) (test code = 0205642728) 203 U/L 13-40 H eGFR (test code = 3842031927) mL/min/1.73m2 KYLE (test code = KYLE) Association [...] tests). Lab Interpretation (test code = Abnormal 41265-6) [facility] WITH [id number] 22:33:52 Test Item Value Reference Range Interpretation Comments WBC (test code = See_Comment L [Automated 7390-2) message] The sy stem which generated this [...] RDW-SD (test code = 46.3 fL 39.0-49.9 40048-7) RDW-CV (test code = 13.5 % 12.0-15.5 788-0) PLT (test code = See_Comment L [Automated 777-3) message] The sy stem which generated this result transmitted reference range : 166 - 358 10*3/ ?L. The reference r abbey was not used to interpret this result as normal/abnormal . MPV (test code = 9.5 fL 9.5-12.9 47524-2) NRBC/100 WBC (test See_Comment [Automat ed code = 8514767715) message] The system which generated this result transmitted reference range : 0.0 - 10.0 /100 WBCs. The refer ence range was not u sed to interpret th is result as normal/abnormal . NRBC x10^3 (test code See_Comment [Auto mated = 5372217540) message] The s ystem which generated this result transmitted reference range : 10*3/?L. The reference range was not used to interpret this result as normal/abnormal . GRAN MAT (NEUT) % 58.3 % (test code = 770-8) IMM GRAN % (test code 0.80 % = 5356080213) LYMPH % (test code = 28.1 % 736-9) MONO % (test code = 12.0 % 5905-5) EOS % (test code = 0.5 % 713-8) BASO % (test code = 0.3 % 706-2) GRAN MAT x10^3(ANC) 2.29 10*3/uL 1.88-7.09 (test code = 0864009900) IMM GRAN x10^3 (test 0.03 10*3/uL 0.00-0.06 code = 4413726514) LYMPH x10^3 (test code 1.10 10*3/uL 1.32-3.29 L = 731-0) MONO x10^3 (test code 0.47 10*3/uL 0.33-0.92 = 742-7) EOS x10^3 (test code = 0.03-0.39 L 711-2) BASO x10^3 (test code 0.01-0.07 = 704-7) Lab Interpretation Abnormal (test code = 84745-1) [place] [facility] METABOLIC PANEL (NA, K, CL, CO2, GLUCOSE, BUN, CREATININE, CA)2022-04-22 21:43:42 Test Item Value Reference Range Interpretation Comments NA (test code = 142 mmol/L 135-145 1501392787) K (test code = 3.5 mmol/L 3.5-5.0 0519757798) CL (test code = 106 mmol/L 98-108 1164830663) CO2 TOTAL (test code = 26 mmol/L 23-31 0375483216) AGAP (test code = 2-16 1575693962) BUN (test code = 29 mg/dL 7-23 H 5070937614) GLUCOSE (test code = 84 mg/dL 70-110 4914623771) CREATININE (test code = 1.16 mg/dL 0.50-1.04 H 2437904583) CALCIUM (test code = 8.2 mg/dL 8.6-10.6 L 8661357220) eGFR (test code = mL/min/1.73m2 6811409794) KYLE (test code = KYLE) Association of [...] tests). Lab Interpretation Abnormal (test code = 94311-4) [facility] WITH [id number] 21:33:01 Test Item Value Reference Range Interpretation [...] (test code = 50.7 fL 39.0-49.9 H 95764-1) RDW-CV (test code = 14.6 % 12.0-15.5 788-0) PLT (test code = See_Comment L [Automated 777-3) message] The sy stem which generated this result transmitted reference range : 166 - 358 10*3/ ?L. The reference r abbey was not used to interpret this result as normal/abnormal . MPV (test code = 8.8 fL 9.5-12.9 L 17012-8) NRBC/100 WBC (test See_Comment [Automat ed code = 9120550626) message] The system which generated this result transmitted reference range : 0.0 - 10.0 /100 WBCs. The refer ence range was not u sed to interpret th is result as normal/abnormal . NRBC x10^3 (test code See_Comment [Auto mated = 3266767703) message] The s ystem which generated this result transmitted reference range : 10*3/?L. The reference range was not used to interpret this result as normal/abnormal . GRAN MAT (NEUT) % 70.9 % (test code = 770-8) IMM GRAN % (test code 0.50 % = 6273603083) LYMPH % (test code = 17.4 % 736-9) MONO % (test code = 9.0 % 5905-5) EOS % (test code = 1.7 % 713-8) BASO % (test code = 0.5 % 706-2) GRAN MAT x10^3(ANC) 4.60 10*3/uL 1.88-7.09 (test code = 7319584276) IMM GRAN x10^3 (test 0.03 10*3/uL 0.00-0.06 code = 4874694081) LYMPH x10^3 (test code 1.13 10*3/uL 1.32-3.29 L = 731-0) MONO x10^3 (test code 0.58 10*3/uL 0.33-0.92 = 742-7) EOS x10^3 (test code = 0.11 10*3/uL 0.03-0.39 711-2) BASO x10^3 (test code 0.03 10*3/uL 0.01-0.07 = 704-7) Lab Interpretation Abnormal (test code = 43243-2) [facility] [id number] 06:01:07 Test Item Value Reference Range Interpretation Comments Blood Culture-Aerobic No organisms No growth Previo us (test code = 88707-2) isolated prelim inary verified result was Culture [...] Culture-Anaerobic isolated preliminar y (test code = 10500-9) verifi ed result was Culture In Progress [...] CDT Lab Interpretation Normal (test code = 04780-2) [facility] CULTURE [id number] 06:01:07 Test Item Value Reference Range Interpretation Comments Blood Culture-Aerobic No organisms No growth Previo us (test code = 96566-8) isolated prelim inary verified result was Culture [...] Culture-Anaerobic isolated preliminar y (test code = 48209-3) verifi ed result was Culture In Progress [...] CDT Lab Interpretation Normal (test code = 35155-9) [facility] CULTURE [id number] 06:01:07 Test Item Value Reference Range Interpretation Comments Blood Culture-Aerobic No organisms No growth Previo us (test code = 79164-2) isolated prelim inary verified result was Culture [...] Culture-Anaerobic isolated preliminar y (test code = 79669-0) verifi ed result was Culture In Progress [...] CDT Lab Interpretation Normal (test code = 89224-9) [facility] [id number] 10:49:10 Test Item Value Reference Range Interpretation Comments NT-proBNP (test code 2660 pg/mL See_Comment H [Autom ated = 5725713029) message] The system which generated this result transmitted reference range : <=125. The reference range was not used to interpret this result as normal/abnormal . KYLE (test code = KYLE) Biotin has been reported to cause a negative bias, interpret results relative to patient's use of biotin. Lab Interpretation Abnormal (test code = 11065-6) [facility] [id number] 10:49:10 Test Item Value Reference Range Interpretation Comments NT-proBNP (test code 2660 pg/mL See_Comment H [Autom ated = 1110765113) message] The system which generated this result transmitted reference range : <=125. The reference range was not used to interpret this result as normal/abnormal . KYLE (test code = KYLE) Biotin has been reported to cause a negative bias, interpret results relative to patient's use of biotin. Lab Interpretation Abnormal (test code = 58358-5) [facility] METABOLIC PANEL (NA, K, CL, CO2, GLUCOSE, BUN, CREATININE, CA)2022-02-15 10:44:07 Test Item Value Reference Range Interpretation Comments NA (test code = 134 mmol/L 135-145 L 2723645280) K (test code = 3.2 mmol/L 3.5-5 L 3464811052) CL (test code = 98 mmol/L 98-108 3519133568) CO2 TOTAL (test code = 27 mmol/L 23-31 7885867383) AGAP (test code = 2-16 3584169630) BUN (test code = 19 mg/dL 7-23 8281898147) GLUCOSE (test code = 102 mg/dL 70-110 5867544375) CREATININE (test code = 0.95 mg/dL 0.5-1.04 4835782446) CALCIUM (test code = 8.5 mg/dL 8.6-10.6 L 5135301827) eGFR (test code = mL/min/1.73m2 8562317879) KYLE (test code = KYLE) Association of [...] tests). Lab Interpretation Abnormal (test code = 50358-5) [facility]2022-09-26 10:44:07 Test Item Value Reference Range Interpretation Comments MAGNESIUM (test code = 1988569885) 1.8 mg/dL 1.7-2.4 Lab Interpretation (test code = Normal 41832-1) [facility]2022-09-26 10:44:07 Test Item Value Reference Range Interpretation Comments MAGNESIUM (test code = 1467003455) 1.8 mg/dL 1.7-2.4 Lab Interpretation (test code = Normal 26889-5) [facility] (NA, K, CL, CO2, GLUCOSE, BUN, CREATININE, CA)2022-02-15 10:44:07 Test Item Value Reference Range Interpretation Comments NA (test code = 134 mmol/L 135-145 L 3648841569) K (test code = 3.2 mmol/L 3.5-5.0 L 7876401499) CL (test code = 98 mmol/L 98-108 6285649575) CO2 TOTAL (test code = 27 mmol/L 23-31 5331230308) AGAP (test code = 2-16 8486693502) BUN (test code = 19 mg/dL 7-23 2791266717) GLUCOSE (test code = 102 mg/dL 70-110 2316474952) CREATININE (test code = 0.95 mg/dL 0.50-1.04 8239379863) CALCIUM (test code = 8.5 mg/dL 8.6-10.6 L 7866131785) eGFR (test code = mL/min/1.73m2 6493990041) KYLE (test code = KYLE) Association of [...] tests). Lab Interpretation Abnormal (test code = 37566-7) [facility] WITH [id number] 10:12:06 Test Item Value Reference Range Interpretation [...] RDW-SD (test code = 47.8 fL 39-49.9 76597-2) RDW-CV (test code = 15.2 % 12-15.5 788-0) PLT (test code = See_Comment L [Automated 777-3) message] The sy stem which generated this result transmitted reference range : 166 - 358 10*3/ ?L. The reference r abbey was not used to interpret this result as normal/abnormal . MPV (test code = 8.9 fL 9.5-12.9 L 72745-1) NRBC/100 WBC (test See_Comment [Automat ed code = [id number]) message] The system which generated this result transmitted reference range : 0.0 - 10.0 /100 WBCs. The refer ence range was not u sed to interpret th is result as normal/abnormal . NRBC x10^3 (test code See_Comment [Auto mated = [id number]) message] The s ystem which generated this result transmitted reference range : 10*3/?L. The reference range was not used to interpret this result as normal/abnormal . GRAN MAT (NEUT) % 65.9 % (test code = 770-8) IMM GRAN % (test code 0.30 % = [id number]) LYMPH % (test code = 21.0 % 736-9) MONO % (test code = 10.1 % 5905-5) EOS % (test code = 2.4 % 713-8) BASO % (test code = 0.3 % 706-2) GRAN MAT x10^3(ANC) 2.49 10*3/uL 1.88-7.09 (test code = [id number]) IMM GRAN x10^3 (test 0-0.06 code = [id number]) LYMPH x10^3 (test code 0.79 10*3/uL 1.32-3.29 L = 731-0) MONO x10^3 (test code 0.38 10*3/uL 0.33-0.92 = 742-7) EOS x10^3 (test code = 0.09 10*3/uL 0.03-0.39 711-2) BASO x10^3 (test code 0.01-0.07 = 704-7) Lab Interpretation Abnormal (test code = 38245-4) [facility] WITH [id number] 10:12:06 Test Item Value Reference Range Interpretation Comments WBC (test code = See_Comment L [Automated 2290-2) message] The sy stem which generated this result transmitted reference range : 4.30 - 11.10 10*3/?L. The reference range was not used to interpret this result as normal/abnormal . RBC (test code = See_Comment L [Automated 419-8) message] The sy stem which generated this [...] RDW-SD (test code = 47.8 fL 39.0-49.9 61378-6) RDW-CV (test code = 15.2 % 12.0-15.5 788-0) PLT (test code = See_Comment L [Automated 777-3) message] The sy stem which generated this result transmitted reference range : 166 - 358 10*3/ ?L. The reference r abbey was not used to interpret this result as normal/abnormal . MPV (test code = 8.9 fL 9.5-12.9 L 54380-5) NRBC/100 WBC (test See_Comment [Automat ed code = [id number]) message] The system which generated this result transmitted reference range : 0.0 - 10.0 /100 WBCs. The refer ence range was not u sed to interpret th is result as normal/abnormal . NRBC x10^3 (test code See_Comment [Auto mated = [id number]) message] The s ystem which generated this result transmitted reference range : 10*3/?L. The reference range was not used to interpret this result as normal/abnormal . GRAN MAT (NEUT) % 65.9 % (test code = 770-8) IMM GRAN % (test code 0.30 % = [id number]) LYMPH % (test code = 21.0 % 736-9) MONO % (test code = 10.1 % 5905-5) EOS % (test code = 2.4 % 713-8) BASO % (test code = 0.3 % 706-2) GRAN MAT x10^3(ANC) 2.49 10*3/uL 1.88-7.09 (test code = 0727793175) IMM GRAN x10^3 (test 0.00-0.06 code = 2972213863) LYMPH x10^3 (test code 0.79 10*3/uL 1.32-3.29 L = 731-0) MONO x10^3 (test code 0.38 10*3/uL 0.33-0.92 = 742-7) EOS x10^3 (test code = 0.09 10*3/uL 0.03-0.39 711-2) BASO x10^3 (test code 0.01-0.07 = 704-7) Lab Interpretation Abnormal (test code = 35370-6) [facility] WITH [id number] 11:18:28 Test Item Value Reference Range Interpretation [...] RDW-SD (test code = 49.5 fL 39-49.9 16763-7) RDW-CV (test code = 15.5 % 12-15.5 788-0) PLT (test code = See_Comment L [Automated 777-3) message] The sy stem which generated this result transmitted reference range : 166 - 358 10*3/ ?L. The reference r abbey was not used to interpret this result as normal/abnormal . MPV (test code = 11.4 fL 9.5-12.9 26747-3) IPF % (test code = 8.7 % 1.3-7.7 H Platelet count 4890131701) measured by fluorescence method. NRBC/100 WBC (test See_Comment [Automat ed code = 7709460854) message] The system which generated this result transmitted reference range : 0.0 - 10.0 /100 WBCs. The refer ence range was not u sed to interpret th is result as normal/abnormal . NRBC x10^3 (test code See_Comment [Auto mated = 7621497418) message] The s ystem which generated this result transmitted reference range : 10*3/?L. The reference range was not used to interpret this result as normal/abnormal . GRAN MAT (NEUT) % 62.0 % (test code = 770-8) IMM GRAN % (test code 0.80 % = 4507653220) LYMPH % (test code = 22.2 % 736-9) MONO % (test code = 9.6 % 5905-5) EOS % (test code = 5.1 % 713-8) BASO % (test code = 0.3 % 706-2) GRAN MAT x10^3(ANC) 2.21 10*3/uL 1.88-7.09 (test code = 9890724331) IMM GRAN x10^3 (test 0.03 10*3/uL 0-0.06 code = 0273607577) LYMPH x10^3 (test code 0.79 10*3/uL 1.32-3.29 L = 731-0) MONO x10^3 (test code 0.34 10*3/uL 0.33-0.92 = 742-7) EOS x10^3 (test code = 0.18 10*3/uL 0.03-0.39 711-2) BASO x10^3 (test code 0.01-0.07 = 704-7) POLYCHROMASIA (test 2+ See_Comment [Automa arpit code = 08883-9) message] The system which generated this result [...] . Lab Interpretation Abnormal (test code = 95138-5) [facility] METABOLIC PANEL (NA, K, CL, CO2, GLUCOSE, BUN, CREATININE, CA)2022-02-13 10:39:07 Test Item Value Reference Range Interpretation Comments NA (test code = 136 mmol/L 135-145 1924611990) K (test code = 4.1 mmol/L 3.5-5 7533410412) CL (test code = 102 mmol/L 98-108 5483426255) CO2 TOTAL (test code = 27 mmol/L 23-31 8336853551) AGAP (test code = 2-16 9271320606) BUN (test code = 22 mg/dL 7-23 6971136259) GLUCOSE (test code = 94 mg/dL 70-110 6718161320) CREATININE (test code = 0.94 mg/dL 0.5-1.04 0344574739) CALCIUM (test code = 8.1 mg/dL 8.6-10.6 L 3286274032) eGFR (test code = mL/min/1.73m2 4190979700) KYLE (test code = KYLE) Association of [...] tests). Lab Interpretation Abnormal (test code = 88400-2) [facility] 01:50:10 Test Item Value Reference Range Interpretation Comments Height (test code = in 5184957912) Weight (test code = lbs 4354072491) Systolic BP (test code mmHg = 8479936540) Diastolic BP (test code mmHg = 5824772931) Heart Rate (test code = bpm 5135372628) BSA (test code = 1.85 m2 1875227102) IVS (test code = 1.22 cm 1483866346) Interventricular Septum 1.22 cm Diastolic Thickness by 2D (test code = 3887211) LVIDD (test code = 5.00 cm 6478995672) Left Ventricular End 117.9 mL Diastolic Volume by Teichholz Method (test code = 8085464) LVPWD (test code = 1.22 cm 1263032066) PW (test code = 1.22 cm 0.6-1.0 1639010072) EF(Teich) (test code = 74.60 % 5167943977) LVIDS (test code = 2.80 cm 6691089925) Left Ventricular End 29.9 mL Systolic Volume by Teichholz Method (test code = 7941261) FS (test code = 44 % 6439994232) EF - 2D (test code = 74.60 % 50541585) LVOT diameter (test 2.16 cm code = 0642519411) LVOT area (test code = 3.70 cm2 3990503240) Ao root diam (test code 3.40 cm = 8868538697) Aortic root (test code 3.4 cm = 9297110966) Ao root annulus (test 3.4 cm code = 2044695503) LA size (test code = 3.4 cm 7831753706) TR Peak Spencer (test code 330.0 cm/s = 4272542572) Triscuspid Valve mmHg Regurgitation Peak Gradient (test code = 3713153928) PV REGURGITATION PEAK mmHg GRADIENT (test code = 7597037605) PI dec slope (test code 137.20 cm/s2 = 3804294153) LAV(MOD-sp4) (test code 102.90 mL = 9911775427) MV Peak E Spencer (test 84.1 cm/s code = 2162226844) MV Peak A Spencer (test 40.1 cm/s code = 0852381297) E/A ratio (test code = ratio 0942034745) MV valve area p 1/2 3.70 cm2 method (test code = 0470741669) MV dec slope (test code 413.00 cm/s2 = 2922598389) MV P1/2t max spencer (test 83.70 cm/s code = 6715338513) MV Prop V (test code = 41.80 cm/s 0539666882) Tapse (test code = 1.83 cm 1149333201) LVOT stroke volume 96.90 cm3 (test code = 0252347893) LVOT peak spencer (test 125.5 cm/s code = 9700904446) LVOT mn grad (test code mmHg = 7179663573) AV LVOT peak gradient mmHg (test code = 8235454351) LVOT peak VTI (test 26.4 cm code = 0183530810) LV V1 mean (test code = 78.10 cm/s 6947992887) Aortic valve mean 103.7 cm/s velocity (test code = 6310091455) Ao peak spencer (test code 165.6 cm/s = 1834121777) Ao VTI (test code = 37.2 cm 0308359668) AV area by cont VTI 2.6 cm2 (test code = 0535578832) AV area peak spencer (test 2.8 cm2 code = 1931363944) Ao max PG (test code = 11.00 mm[Hg] 9544030367) AV peak gradient (test mmHg code = 7648051927) AV valve area (test 2.60 cm2 code = 3383149681) AV mean gradient (test mmHg code = 1390751178) LA Volume Index (BP) 55.2 mL/m2 (test code = 1872273482) LA volume (BP) (test 102.1 mL code = 3308628430) LAV(MOD-sp2) (test code 86.10 mL = 4823002477) A2C EF (test code = 61.20 % 3345953761) EF(sp2-el) (test code = 61.60 % 2412704329) SV(MOD-sp2) (test code 47.10 mL = 5142710261) LV Diastolic Volume 70.7 mL (BP) (test code = 2251028436) A4C EF (test code = 53.00 % 5058597173) EF(MOD-bp) (test code = 56.70 % 1616423981) EF(sp4-el) (test code = 53.90 % 5814766810) LV Systolic Volume (BP) 30.6 mL (test code = 7173926478) SV(MOD-bp) (test code = 40.10 mL 7827175075) SV(MOD-sp4) (test code 32.40 mL = 5040359985) SV(sp4-el) (test code = 33.10 mL 6226348791) EF (test code = 1003792255) Left Ventricular Stroke 40.1 mL Volume by 2-D Biplane-MOD (test code = 6751038) LV Diastolic Volume 38.2 mL/m2 Index (BP) (test code = 2354200659) LV Systolic Volume 16.5 mL/m2 Index (BP) (test code = 9432257665) Radiology Study observation (narrative) (test code = 20422-3) KYLE (test code = KYLE) ?Left?Ventricle: Left [...] left ventricular wall motion is normal. [facility] [id number] 05:45:01 Test Item Value Reference Interpretation Comments Range TROPONIN I (test See_Comment [Automated code = 4638387717) message] The system which generated this result [...] biotin. Lab Interpretation Normal (test code = 31675-5) [facility] BDE-OVA8463-18-22 05:41:40 Test Item Value Reference Range Interpretation Comments NT-proBNP (test code 4250 pg/mL See_Comment H [Autom ated = 9262003878) message] The system which generated this result transmitted reference range : <=125. The reference range was not used to interpret this result as normal/abnormal . KYLE (test code = KYLE) Biotin has been reported to cause a negative bias, interpret results relative to patient's use of biotin. Lab Interpretation Abnormal (test code = 94144-9) [facility] THRMPLAS [id number] 05:35:21 Test Item Value Reference Range Interpretation Comments APTT Patient (test See_Comment [Automat ed code = 3173-2) message] The system which generated this result transmitted reference range : 23 - 38 Seconds . The reference range was not used to interpr et this result as normal/abnormal . KYLE (test code = KYLE) The [facility] patient population mean normal value for aPTT is 30 seconds. Lab Interpretation Normal (test code = 65562-4) [facility] [id number] 05:35:21 Test Item Value Reference Range Interpretation Comments APTT Patient (test See_Comment [Automat ed code = 3173-2) message] The system which generated this result transmitted reference range : 23 - 38 Seconds . The reference range was not used to interpr et this result as normal/abnormal . KYLE (test code = KYLE) The [facility] patient population mean normal value for aPTT is 30 seconds. Lab Interpretation Normal (test code = 83585-0) [facility] / [id number] 05:33:21 Test Item Value Reference Range Interpretation [...] tions. Lab Interpretation (test Normal code = 08137-1) [facility]. METABOLIC PANEL (62007)2022-02-11 05:33:21 Test Item Value Reference Range Interpretation Comments NA (test code = 137 mmol/L 135-145 3234695878) K (test code = 4.3 mmol/L 3.5-5 4351523096) CL (test code = 103 mmol/L 98-108 9736410122) CO2 TOTAL (test code = 25 mmol/L 23-31 8830413305) AGAP (test code = 2-16 1110348972) BUN (test code = 19 mg/dL 7-23 7251771448) GLUCOSE (test code = 120 mg/dL 70-110 H 1586385062) CREATININE (test code = 1.15 mg/dL 0.5-1.04 H 7701978802) TOTAL BILI (test code = 0.9 mg/dL 0.1-1.6 1103182277) CALCIUM (test code = 8.9 mg/dL 8.6-10.6 5178813539) T PROTEIN (test code = 6.6 g/dL 6.3-8.2 9496749933) ALBUMIN (test code = 4.0 g/dL 3.5-5 5628417202) ALK PHOS (test code = 73 U/L 34-122 1275817654) ALTv (test code = 18 U/L 5-35 2-6) AST(SGOT) (test code = 31 U/L 13-40 7182772419) eGFR (test code = mL/min/1.73m2 8082145310) KYLE (test code = KYLE) Association of [...] tests). Lab Interpretation Abnormal (test code = 65410-7) [facility]. METABOLIC PANEL (20453)2022-02-11 05:33:21 Test Item Value Reference Range Interpretation Comments NA (test code = 137 mmol/L 135-145 0220446813) K (test code = 4.3 mmol/L 3.5-5.0 2563365809) CL (test code = 103 mmol/L 98-108 0993145579) CO2 TOTAL (test code = 25 mmol/L 23-31 2841333825) AGAP (test code = 2-16 0626959435) BUN (test code = 19 mg/dL 7-23 0157079087) GLUCOSE (test code = 120 mg/dL 70-110 H 0246388599) CREATININE (test code = 1.15 mg/dL 0.50-1.04 H 5385938269) TOTAL BILI (test code = 0.9 mg/dL 0.1-1.5 2420288438) CALCIUM (test code = 8.9 mg/dL 8.6-10.6 6652774253) T PROTEIN (test code = 6.6 g/dL 6.3-8.2 9729261342) ALBUMIN (test code = 4.0 g/dL 3.5-5.0 3072601481) ALK PHOS (test code = 73 U/L 34-122 8717341499) ALTv (test code = 18 U/L 5-35 1742-6) AST(SGOT) (test code = 31 U/L 13-40 6804350900) eGFR (test code = mL/min/1.73m2 4740207063) KYLE (test code = KYLE) Association of [...] tests). Lab Interpretation Abnormal (test code = 21770-0) [facility] / [id number] 05:33:21 Test Item Value Reference Range Interpretation Comments PROTIME PATIENT (test See_Comment [Auto mated message] code = 5964-2) The system [employer] generated this result transmitted ref erence range: 12.0 - 1 4.7 Seconds. The re ference range was not u sed to interpret this result as normal/abnor mal. INR (test code = 6301-6) Nor mal INR <1.1; Warfarin Therap eutic range 2.0 to 3. 0 or 2.5 to 3.5, dep ending upon the indica tions. Lab Interpretation (test Normal code = 61272-3) [facility] WITH [id number] 05:14:37 Test Item Value Reference Range Interpretation [...] RDW-SD (test code = 47.9 fL 39-49.9 15295-8) RDW-CV (test code = 14.9 % 12-15.5 788-0) PLT (test code = See_Comment L [Automated 777-3) message] The sy stem which generated this result transmitted reference range : 166 - 358 10*3/ ?L. The reference r abbey was not used to interpret this result as normal/abnormal . MPV (test code = 9.1 fL 9.5-12.9 L 13831-7) NRBC/100 WBC (test See_Comment [Automat ed code = 3162676166) message] The system which generated this result transmitted reference range : 0.0 - 10.0 /100 WBCs. The refer ence range was not u sed to interpret th is result as normal/abnormal . NRBC x10^3 (test code See_Comment [Auto mated = 0449677799) message] The s ystem which generated this result transmitted reference range : 10*3/?L. The reference range was not used to interpret this result as normal/abnormal . GRAN MAT (NEUT) % 78.5 % (test code = 770-8) IMM GRAN % (test code 0.20 % = 5993195247) LYMPH % (test code = 11.6 % 736-9) MONO % (test code = 8.4 % 5905-5) EOS % (test code = 1.1 % 713-8) BASO % (test code = 0.2 % 706-2) GRAN MAT x10^3(ANC) 3.45 10*3/uL 1.88-7.09 (test code = 3157987283) IMM GRAN x10^3 (test 0-0.06 code = 4750564720) LYMPH x10^3 (test code 0.51 10*3/uL 1.32-3.29 L = 731-0) MONO x10^3 (test code 0.37 10*3/uL 0.33-0.92 = 742-7) EOS x10^3 (test code = 0.05 10*3/uL 0.03-0.39 711-2) BASO x10^3 (test code 0.01-0.07 = 704-7) Lab Interpretation Abnormal (test code = 81857-3) [facility] Coronavirus 2019 Sfkgbff9182-45-87 18:08:00 Test Item Value Reference Range Interpretation [...] det ection of nucleic acids f rom oprDYSJ-KdO-1 v irus and diagnosis of SA RS-CoV-2 virusinfection. It is an Emergency Use Authorization ( EUA) testauthorized by the U.S. FDA. BASIC METABOLIC [id number] 09:37:00 Test Item Value Reference Range Interpretation [...] = 9.0 mg/dL 8.0-10.5 N CA) PROTHROMBIN [id number] 09:32:00 Test Item Value Reference Range Interpretation [...] (to prevent recurrent infar ct). 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 [facility] - XR CHEST 1 [id number] 00:00:00 [facility] : 1955 Sex: F FAX: Carmenza Kelly DO [phone] Liberal: St: ADM FAX: Mike Scales MD [phone] FAX: Bahman Chopra [phone] Name: LIO WATTS [facility] [place] : 1955 Age/S: 66/F [address] [place] [address] Unit #:[id number] Loc: [place] [address] Phys: Bahman Chopra [employer] Acct: [id number] Dis Date: Status: ADM IN PHONE #: [phone] Exam Date: 06/17/2021 1320 FAX #: [phone] Reason: WATCHMAN EX AMS: CPT CODE: [id number] XR CHEST 1 V 19224 PROCEDURE INFORMATION: Exam: XR Chest Exam date [...] Chopra Technologist: RT Taylor(R) Trnscrd Date/Time/By: 06/17/2021 (7226) : By:tGIRISHL Orig Print D/T: S: 06/17/2021 (4459) PAGE 1 Signed ReportCOVID 19 Asymptomatic IH [id number] 12:29:00 Test Item Value Reference Range Interpretation [...] high or waivedcomplexit y tests. BASIC METABOLIC [id number] 11:37:00 Test Item Value Reference Range Interpretation [...] code = 9.0 mg/dL 8.0-10.5 N CA) ZYUTXRZURV2551-50-28 11:37:00 Test Item Value Reference Range Interpretation Comments PREALBUMIN (test code = PREALB) 24.3 mg/dL 16.0-40.0 N PROTHROMBIN [id number] 11:03:00 Test Item Value Reference Range Interpretation [...] (to prevent recurrent infar ct). CBC W/AUTO [id number] 10:59:00 Test Item Value Reference Range Interpretation [...] 3/uL 0.0-0.1 N NRBC#) - CHEST 2 [id number] 00:00:00 [facility] : 1955 Sex: F FAX: Carmenza Kelly DO [phone] Liberal: St: PRE FAX: Y Mike Lund MD [phone] Name: LIO WATTS [facility] : 1955 Age/S: 66/F [address] [place] [address] Unit #: [id number] Loc: [place], [place] [address]Swqc: Mike Lund MD Acct: [id number] Dis Date: Status: PRE [facility] PHONE #: [phone] Exam Date: 06/16/2021 1120 FAX #: [phone] Reason: PREOP EXAMS: CPT CODE: [id number] XR CHEST 2 V 02915 PROCEDURE INFORMATION: Exam: XR Chest Exam date [...] MD Technologist: RT Andree(R) Trnscrd Date/Time/By: 06/16/2021 (6364) : By: [email or web address] Orig Print D/T: S: 06/16/2021 (3913) PAGE 1 Signed ReportGastrointestinal hzegu2915-40-31 04:35:05 Test Item Value Reference Interpretation Comments [...] Rotavirus PCR (test Not Detected code = 6837918) Salmonella PCR (test Not Detected code = [...] PCR Not Detected (test code = 7124) [facility] sqegafz4714-76-83 19:30:47 Test Item Value Reference Range Interpretation Comments Case number (test [id number] code = 4426326) Surgical pathology See link below for PDF report (test code = Lab Report 2255) Result status (test This is Supplemental code = 6614151) Report for [id number] [facility]2021-04-09 16:31:00 Test Item Value Reference Range Interpretation Comments POC Activated Clotting Time (test code 153 s = POC Activated Clotting Time) [address]04-09 16:31:00 Test Item Value Reference Range Interpretation Comments POC Activated Clotting Time (test code 153 s = POC Activated Clotting Time) [place] 431601-04-09 16:31:00 Test Item Value Reference Range Interpretation Comments POC Activated Clotting Time (test code 153 s = POC Activated Clotting Time) [address]04-09 16:31:00 Test Item Value Reference Range Interpretation Comments POC Activated Clotting Time (test code 153 s = POC Activated Clotting Time) [place] 431601-04-09 16:31:00 Test Item Value Reference Range Interpretation Comments POC Activated Clotting Time (test code 153 s = POC Activated Clotting Time) [place] 431601-04-09 16:31:00 Test Item Value Reference Range Interpretation Comments POC Activated Clotting Time (test code 153 s = POC Activated Clotting Time) [address]04-09 16:31:00 Test Item Value Reference Range Interpretation Comments POC Activated Clotting Time (test code 153 s = POC Activated Clotting Time) [place] 431601-04-09 14:37:00 Test Item Value Reference Range Interpretation Comments POC Activated Clotting Time (test code 454 s = POC Activated Clotting Time) [place] 431601-04-09 14:37:00 Test Item Value Reference Range Interpretation Comments POC Activated Clotting Time (test code 454 s = POC Activated Clotting Time) [address]04-09 14:37:00 Test Item Value Reference Range Interpretation Comments POC Activated Clotting Time (test code 454 s = POC Activated Clotting Time) [address]04-09 14:37:00 Test Item Value Reference Range Interpretation Comments POC Activated Clotting Time (test code 454 s = POC Activated Clotting Time) [address]04-09 14:37:00 Test Item Value Reference Range Interpretation Comments POC Activated Clotting Time (test code 454 s = POC Activated Clotting Time) [address]04-09 14:37:00 Test Item Value Reference Range Interpretation Comments POC Activated Clotting Time (test code 454 s = POC Activated Clotting Time) [facility] HospitalFiokfopAVOGHFDVPK7336-64-30 14:37:00 Test Item Value Reference Range Interpretation Comments POC Activated Clotting Time (test code 454 s = POC Activated Clotting Time) [facility] HospitalZylhjzpMEKECEQRFG4864-76-72 14:13:00 Test Item Value Reference Range Interpretation Comments POC Activated Clotting Time (test code 354 s = POC Activated Clotting Time) [facility] HospitalJxcwzjnTTGWHAMBJR3751-99-53 14:13:00 Test Item Value Reference Range Interpretation Comments POC Activated Clotting Time (test code 354 s = POC Activated Clotting Time) [facility] HospitalNgskmlkQHWMQCORQM5381-33-22 14:13:00 Test Item Value Reference Range Interpretation Comments POC Activated Clotting Time (test code 354 s = POC Activated Clotting Time) [facility] HospitalHleryzzIULTNZPKUB1833-76-44 14:13:00 Test Item Value Reference Range Interpretation Comments POC Activated Clotting Time (test code 354 s = POC Activated Clotting Time) [facility] HospitalFuixpjkWALXRMZSEB1870-90-09 14:13:00 Test Item Value Reference Range Interpretation Comments POC Activated Clotting Time (test code 354 s = POC Activated Clotting Time) [facility] HospitalWrpmkdoGTCZYBWKNF8529-74-76 14:13:00 Test Item Value Reference Range Interpretation Comments POC Activated Clotting Time (test code 354 s = POC Activated Clotting Time) [facility] HospitalQatxancDNWKLDGHQT1840-37-80 14:13:00 Test Item Value Reference Range Interpretation Comments POC Activated Clotting Time (test code 354 s = POC Activated Clotting Time) [facility] NLCQPVL7050-97-10 10:37:00Negative (08/29/20 5:37 AM) [facility]CHE[facility] WPUXI8611-83-26 10:37:59619Wirrkssd HermannCHEM PANEL 2020-08-29 10:37:0028[facility] HermannCHEM NTJLS1404-64-79 10:37:001.01[facility] HermannCHEM VCICO4294-19-14 10:37:84062Vorlrooe HermannCHEM QBUNV8546-07-69 10:37:003.8[facility] HermannCHEM FNBWX0981-48-76 10:37:38068Nmimoiio HermannCHEM EEEYT6486-26-32 10:37:0028[facility] HermannCHEM OSYLZ6544-53-62 10:37:009.8 [facility]annCHEM JCQFG9163-02-20 10:37:0011.8[facility] HermannCHEM PANEL 2020-08-29 10:37:0059[facility] HermannCHEM ENLAF8655-20-10 10:37:002.9[facility] UzvljhhNJSTATWBVV2390-31-52 10:37:006.8[facility] TjeskvaIQFAAYZDOB1475-32-74 10:37:004.47[facility] ZrykqcnEVABSHJWEJ6794-17-65 10:37:0010.6[facility] Marty ZGKYPGGQEX8532-55-18 10:37:0034.0[facility] KwvluosSRKLVHYNCG7993-98-53 10:37:00 76.1[facility] GexpescCEQSDBWRDX0492-21-31 10:37:00 Test Item Value Reference Range Interpretation Comments MCH (test code = MCH) 23.8 pg 27.0-31.0 [facility] KiiavwnHZJBATVBQZ1275-69-94 10:37:0031.3[facility] HermannHEMATOLOGY 2020-08-29 10:37:0018.2[facility] PxtpjviGWCCKKXOZT4884-12-65 10:37:07415Uwmxecew DcnughmGCZXLDNIUI6120-95-50 10:37:007.5[facility] EvanhhmBOPKWUDCHZ8277-10-39 10:37:00 Test Item Value Reference Range Interpretation Comments PT (test code = PT) 12.8 s 12.0-14.7 [facility] JeslgwvFEDOFSHJOW6348-96-75 10:37:00 Test Item Value Reference Range Interpretation Comments INR (test code = INR) 0.97 1 0.85-1.17 [facility] FiqwkxmCBOLZSJDSL5260-92-42 10:37:00 Test Item Value Reference Range Interpretation Comments PTT (test code = PTT) 25.0 s 22.9-35.8 [facility] MauvpgdHVJTMSBZHL7749-86-76 10:37:0070.5[facility] HermannHEMATOLOGY 2020-08-29 10:37:0018.8[facility] ZngwbaeFYMYDRNCLV6208-02-79 10:37:009.5[facility] EfsztstDHPJAEOTDV5120-62-34 10:37:000.9[facility] HjbknklNEBJQHAAYK5960-76-33 10:37:000.3[facility] LxplliwXFWIGSIOID6863-92-41 10:37:004.8[facility] SKDXXPCNMV0286-47-03 10:37:001.3[facility] IcwhtchQEVSVBOSVA3701-08-00 10:37:000.6 [facility] EzaeesgJHQTHWCNVU5844-11-29 10:37:000.1[facility] HermannHEMATOLOGY 2020-08-29 10:37:001+ *ABN*(08/29/20 5:37 AM)[facility] EjfyukqLLMLBBKTIL9021-71-29 10:37:00Not Detected (08/29/20 5:37 AM)[facility] HermannBLOOD BANK RESULTS 2020-08-29 10:37:00Negative (08/29/20 5:37 AM)[facility] HermannCHEM AHAUX7305-16-92 10:37:55408Xoeecojt HermannCHEM MCVUC1110-98-72 10:37:0028[facility] HermannCHEM TJNXW8866-77-39 10:37:001.01[facility] HermannCHEM ICNRE0879-20-78 10:37:56247 [facility] HermannCHEM RHJVN5124-93-34 10:37:003.8[facility]annCHEM PANEL 2020-08-29 10:37:33445Qwbwzwno HermannCHEM USAVU7747-21-91 10:37:0028[facility]annCHEM UTRCF1100-19-59 10:37:009.8[facility]annCHEM NOTDS8661-22-76 10:37:0011.8[facility]annCHEM JNDRR1571-56-22 10:37:0059[facility]annCHEM ONGIE8361-30-62 10:37:002.9[facility] JmrsqxcALRHAILPSV7679-73-87 10:37:006.8 [facility] ObkljabFPGTQOPVZJ1054-89-36 10:37:004.47[facility] HermannHEMATOLOGY 2020-08-29 10:37:0010.6[facility] AuwfvkgWRMHGTVMGQ6324-51-62 10:37:0034.0[facility] ObeimiyQPSUTXLGMY3215-49-78 10:37:0076.1[facility] VmjmouzCGLQTPCMCX3787-40-96 10:37:00 Test Item Value Reference Range Interpretation Comments MCH (test code = MCH) 23.8 pg 27.0-31.0 [facility] RfrwvbsCOFYWMWUYG3352-80-32 10:37:0031.3[facility] HermannHEMATOLOGY 2020-08-29 10:37:0018.2[facility] SllbhzvDDQHFENLSM5138-97-76 10:37:07695Ffaqbuug OynazcqBLDOSLGLGF9800-87-31 10:37:007.5[facility] UxefbxuMSDYKVZNLP3249-54-92 10:37:00 Test Item Value Reference Range Interpretation Comments PT (test code = PT) 12.8 s 12.0-14.7 [facility] NmjxvbjGNMUFNDCTN4605-22-42 10:37:00 Test Item Value Reference Range Interpretation Comments INR (test code = INR) 0.97 1 0.85-1.17 [facility] XmtdonqVMNHOHEXEJ7485-85-03 10:37:00 Test Item Value Reference Range Interpretation Comments PTT (test code = PTT) 25.0 s 22.9-35.8 [facility] YsrfpgfXLXWIBLXVY0220-23-18 10:37:0070.5[facility]annHEMATOLOGY 2020-08-29 10:37:0018.8[facility] PrdbkunZTCSODZWTE1911-05-19 10:37:009.5[facility] YsrrsrwCLDSDCHMNO5557-50-78 10:37:000.9[facility] NkkpvqsSLAWIVCQWK1915-60-35 10:37:000.3[facility] IukvrpgPZQHVFJLJK5386-45-02 10:37:004.8[facility] WYPGSIXQYC2972-80-64 10:37:001.3[facility] CxyflbxBDNSDXNOBT8317-41-36 10:37:000.6 [facility] BjneyrhFWOAQDHHIE6550-29-40 10:37:000.1[facility]annHEMATOLOGY 2020-08-29 10:37:001+ *ABN*(08/29/20 5:37 AM)[facility] AhdvsbqLUFNTMNFGE8401-86-35 10:37:00Not Detected (08/29/20 5:37 AM)[facility] RESULTS 2020-08-29 10:37:00Negative (08/29/20 5:37 AM)[facility]annCHEM UXJHQ3590-23-11 10:37:61618Iqhmaich HermannCHEM TXPRE8516-23-91 10:37:0028[facility]annCHEM CCOBB8931-72-21 10:37:001.01[facility]annCHEM BADVK5346-57-27 10:37:06088 [facility] CQHFX6064-91-36 10:37:003.8[facility]annCHEM PANEL 2020-08-29 10:37:67328Jnslesah HermannCHEM EJHKM5069-60-53 10:37:0028[facility]annCHEM IVYGC9300-27-58 10:37:009.8[facility]annCHEM JURSF5114-01-01 10:37:0011.8[facility]annCHEM NAUNS5788-71-15 10:37:0059[facility]annCHEM YPFAV3399-82-50 10:37:002.9[facility] RhrthxeWPIRNSMSNN1863-84-04 10:37:006.8 [facility] ZtuosymGGLPLVHJMH1613-46-84 10:37:004.47[facility]annHEMATOLOGY 2020-08-29 10:37:0010.6[facility] RidfhuxUSLWTKOIJJ6407-74-54 10:37:0034.0[facility] RfqtxtwBNDATKAAXQ0674-02-99 10:37:0076.1[facility] JfruudhAVLPTMZBVG7193-57-96 10:37:00 Test Item Value Reference Range Interpretation Comments MCH (test code = MCH) 23.8 pg 27.0-31.0 [facility] FkzainjMQMSFMYRFY6259-71-65 10:37:0031.3[facility]annHEMATOLOGY 2020-08-29 10:37:0018.2[facility] AsgpowyCODTTCCHQD9475-06-81 10:37:45578Xukjktdm IgasbmhLKKULIBUXI4612-46-64 10:37:007.5[facility] KfjxridZTEHFBBLTF8203-86-93 10:37:00 Test Item Value Reference Range Interpretation Comments PT (test code = PT) 12.8 s 12.0-14.7 [facility] SkzhaunXVDZSRNIFZ7296-05-94 10:37:00 Test Item Value Reference Range Interpretation Comments INR (test code = INR) 0.97 1 0.85-1.17 [facility] YedrwsoKXDIWORHTZ9353-93-67 10:37:00 Test Item Value Reference Range Interpretation Comments PTT (test code = PTT) 25.0 s 22.9-35.8 [facility] IecvkwtFPFVLRFHRL8038-90-79 10:37:0070.5[facility]annHEMATOLOGY 2020-08-29 10:37:0018.8[facility] PwhiiqlHOWVVTZNNW9721-04-37 10:37:009.5[facility] KhjlhzzABMHZJIQWP7395-76-99 10:37:000.9[facility] RulbvqcYOSNLVDUBG2648-99-77 10:37:000.3[facility] HataphjBAYRHTDGQK5415-22-06 10:37:004.8[facility] QSQFZUWPIK8051-66-73 10:37:001.3[facility] PgbskzpRCUZQVYTLT6451-20-01 10:37:000.6 [facility] FgxvqmdHNQKGAQNXK3307-25-46 10:37:000.1[facility]annHEMATOLOGY 2020-08-29 10:37:001+ *ABN*(08/29/20 5:37 AM)[facility] AqvwymwFHDNQJXCEF7586-13-47 10:37:00Not Detected (08/29/20 5:37 AM)[facility]annBL[facility]OD BANK RESULTS 2020-08-29 10:37:00Negative (08/29/20 5:37 AM)[facility]annCHEM LXIEW9847-47-44 10:37:75610Hawxdxeu HermannCHEM JOKNS4883-65-06 10:37:0028[facility]annCHEM PMJTY5093-07-87 10:37:001.01[facility]annCHEM ZVPLU0456-54-72 10:37:65803 [facility]annCHE[facility] WGAJO3739-18-10 10:37:003.8[facility]annCHEM PANEL 2020-08-29 10:37:65225Ibxsztmm HermannCHEM DSDHI9563-89-25 10:37:0028[facility]annCHEM VSJCQ9896-69-52 10:37:009.8[facility]annCHEM HZBEW6169-16-44 10:37:0011.8[facility]annCHEM KICXO9842-17-62 10:37:0059[facility]annCHEM CSNFV7116-93-00 10:37:002.9[facility] MymjzcbEBUZPMWAFY7531-16-47 10:37:006.8 [facility] XwiwlweLZCACMHJOV7677-84-15 10:37:004.47[facility]annHEMATOLOGY 2020-08-29 10:37:0010.6[facility] NfqmvvnTHYYYSIOFY8679-67-94 10:37:0034.0[facility] UorceqxWYWFSDPQKC8005-45-23 10:37:0076.1[facility] LddbgksOTWNDBPOJQ9522-81-29 10:37:00 Test Item Value Reference Range Interpretation Comments MCH (test code = MCH) 23.8 pg 27.0-31.0 [facility] HsdspstQISEDGTZDG8809-46-94 10:37:0031.3[facility]annHEMATOLOGY 2020-08-29 10:37:0018.2[facility] TfzizvgZSPPCNGTEQ4056-63-79 10:37:92080Iwzuybwz SgrlrruFJSNNHEOZV1971-73-09 10:37:007.5[facility] NitogmjTBRJGPGWWA1868-27-22 10:37:00 Test Item Value Reference Range Interpretation Comments PT (test code = PT) 12.8 s 12.0-14.7 [facility] XngrzzoKABRTGIHTA9181-22-16 10:37:00 Test Item Value Reference Range Interpretation Comments INR (test code = INR) 0.97 1 0.85-1.17 [facility] ClegiwtWVOZWJQDFH0182-16-47 10:37:00 Test Item Value Reference Range Interpretation Comments PTT (test code = PTT) 25.0 s 22.9-35.8 [facility] GdilvrfLVZCHTPTBP9377-44-69 10:37:0070.5[facility]annHEMATOLOGY 2020-08-29 10:37:0018.8[facility] WcglwwaZDYSRXWAAO1379-00-19 10:37:009.5[facility] BwcxmzmIUHNZHFUUB8250-87-29 10:37:000.9[facility] IakrrvpBMHDUXPLPJ8741-42-97 10:37:000.3[facility] BobkhpzBVNCLITDBS2946-11-72 10:37:004.8[facility] FVYNPUWTRQ4775-81-00 10:37:001.3[facility] RthgwigJKUSABYBQD6458-11-71 10:37:000.6 [facility] FrlzvpfANYDMAWZKJ3844-17-29 10:37:000.1[facility]annHEMATOLOGY 2020-08-29 10:37:001+ *ABN*(08/29/20 5:37 AM)[facility] IqbjqmvBKQKGMONCA8398-47-48 10:37:00Not Detected (08/29/20 5:37 AM)[facility]annBLOOD BANK RESULTS 2020-08-29 10:37:00Negative (08/29/20 5:37 AM)[facility] HermannCHEM UJIFY8425-14-06 10:37:34340Attamdcv HermannCHEM IZGRI1973-36-17 10:37:0028[facility]annCHEM ZKGHV6220-19-02 10:37:001.01[facility] HermannCHEM HTGNN7291-62-26 10:37:22841 [facility]annCHE[facility] SZFRS9370-42-56 10:37:003.8[facility] HermannCHEM PANEL 2020-08-29 10:37:51602Agvrmzvk HermannCHEM JVWVB3986-53-36 10:37:0028[facility]annCHEM VFGYA0186-86-56 10:37:009.8[facility] HermannCHEM ZVXSI6130-38-45 10:37:0011.8[facility] HermannCHEM TXBIG0300-96-83 10:37:0059[facility]annCHEM BQBAX2360-23-09 10:37:002.9[facility] AsmztjuPGDSTNDWEW0309-85-52 10:37:006.8 [facility] QbkgabxZKPRDFTLXR1682-62-96 10:37:004.47[facility]annHEMATOLOGY 2020-08-29 10:37:0010.6[facility] HosqpcgQAUEIAUVLY3231-29-61 10:37:0034.0[facility] ToyacdcPBTOUJJOBE5211-09-43 10:37:0076.1[facility] ZepzyjoBQYXSQCTNN1817-30-44 10:37:00 Test Item Value Reference Range Interpretation Comments MCH (test code = MCH) 23.8 pg 27.0-31.0 [facility] GcmpzkcKPYPIUKQHM0293-41-81 10:37:0031.3[facility]annHEMATOLOGY 2020-08-29 10:37:0018.2[facility] EcdnxnfRLSOMVBBKH9959-32-99 10:37:68566Jqwidaud SrohqonLUOCAEILNO0806-22-07 10:37:007.5[facility] HrhdiiyTJDGHFTKRH8998-62-46 10:37:00 Test Item Value Reference Range Interpretation Comments PT (test code = PT) 12.8 s 12.0-14.7 [facility] QfostjhRQZQFYUHCO6212-76-20 10:37:00 Test Item Value Reference Range Interpretation Comments INR (test code = INR) 0.97 1 0.85-1.17 [facility] DhsvfvjOEDXOGVZPH6097-07-02 10:37:00 Test Item Value Reference Range Interpretation Comments PTT (test code = PTT) 25.0 s 22.9-35.8 [facility] EfwlwsuYBCTXKLFIB7064-87-70 10:37:0070.5[facility]annHEMATOLOGY 2020-08-29 10:37:0018.8[facility] HgrbnqdBLBHDDHIBK8207-93-24 10:37:009.5[facility] GjonpweJKSAFTUSWM3742-24-66 10:37:000.9[facility] NytbrdfWOHJMFXERP1155-31-77 10:37:000.3[facility] IulgmolAXPRYWLXKY4476-89-71 10:37:004.8[facility] TSRQWYCATU3112-50-20 10:37:001.3[facility] BlruorvTYTVWSATRP3419-17-81 10:37:000.6 [facility] KvobrsaNQGANJZDPB2883-52-16 10:37:000.1[facility]annHEMATOLOGY 2020-08-29 10:37:001+ *ABN*(08/29/20 5:37 AM)[facility] SxdcfopHOSTBPIWSC9247-75-99 10:37:00Not Detected (08/29/20 5:37 AM)[facility]annBLOOD BANK RESULTS 2020-08-29 10:37:00Negative (08/29/20 5:37 AM)[facility]annCHEM HIIBQ4775-34-87 10:37:76637Pedvioke HermannCHEM MVRBN4880-34-56 10:37:0028[facility]annCHEM PHXHT4380-67-91 10:37:001.01[facility]annCHEM FRTXP7301-71-88 10:37:69234 [facility]annCHE[facility] QGFJV6399-07-44 10:37:003.8[facility] HermannCHEM PANEL 2020-08-29 10:37:64443Heallcuq HermannCHEM UTONR0590-07-49 10:37:0028[facility]annCHEM ORTGI4806-84-05 10:37:009.8[facility]annCHEM GDPJE5308-46-65 10:37:0011.8[facility]annCHEM JLULU1839-46-35 10:37:0059[facility]annCHEM OGKMR9118-88-78 10:37:002.9[facility] OaufunxIZXNHKLEBB7354-58-83 10:37:006.8 [facility] GvvrxcvXKQVPSRVMK2943-18-14 10:37:004.47[facility]annHEMATOLOGY 2020-08-29 10:37:0010.6[facility] JiigzgpGDDXNEMQSJ1920-61-51 10:37:0034.0[facility] FclmiivCCZMZTBYUD1860-85-64 10:37:0076.1[facility] VnrkwxiOPRQRRSVFK4839-81-91 10:37:00 Test Item Value Reference Range Interpretation Comments MCH (test code = MCH) 23.8 pg 27.0-31.0 [facility] NnfvizvZZRVNOGAWE6669-13-77 10:37:0031.3[facility]annHEMATOLOGY 2020-08-29 10:37:0018.2[facility] EvquornMKHWLMPHQT5097-54-42 10:37:67462Hkqdjwjs TihqhsaZOXHKRDYCK7426-06-75 10:37:007.5[facility] BtizcqhLCXURTWZTK9080-60-32 10:37:00 Test Item Value Reference Range Interpretation Comments PT (test code = PT) 12.8 s 12.0-14.7 [facility] WxpveylZMWUWLYMMQ3124-82-97 10:37:00 Test Item Value Reference Range Interpretation Comments INR (test code = INR) 0.97 1 0.85-1.17 [facility] NohzfakRYYJHFMOTM4852-70-28 10:37:00 Test Item Value Reference Range Interpretation Comments PTT (test code = PTT) 25.0 s 22.9-35.8 [facility] PhlvzopIZYEVIGSKD0948-86-63 10:37:0070.5[facility]annHEMATOLOGY 2020-08-29 10:37:0018.8[facility] KjotbgoZDQKJEZIYO5933-55-09 10:37:009.5[facility] HlfugivWIOPUXSHTM3273-19-75 10:37:000.9[facility] VacbmgeKNLSABFQDJ7405-41-52 10:37:000.3[facility] UguezvpXSFFWNEAMX7734-16-13 10:37:004.8[facility] RIUACUYESJ0874-65-20 10:37:001.3[facility] QlydvcoAWVXMMFOVT4968-04-18 10:37:000.6 [facility] AtnonawIRVZOOBJWC8306-69-40 10:37:000.1[facility]annHEMATOLOGY 2020-08-29 10:37:001+ *ABN*(08/29/20 5:37 AM)[facility] YskjqirZYQKSHRQMT2002-18-03 10:37:00Not Detected (08/29/20 5:37 AM)[facility]annBLOOD BANK RESULTS 2020-08-29 10:37:00Negative (08/29/20 5:37 AM)[facility]annCHEM WTTJJ5716-01-09 10:37:13651Kgoxyqwz HermannCHEM JCQER4223-33-03 10:37:0028[facility]annCHEM TEIZV4000-53-82 10:37:001.01[facility]annCHEM WIIBQ1857-14-10 10:37:53591 [facility]annCHEM SFIZF1571-94-85 10:37:003.8[facility] HermannCHEM PANEL 2020-08-29 10:37:88542Mxkovwug HermannCHEM WSMDI7769-92-49 10:37:0028[facility]annCHEM ZDVRE0625-54-04 10:37:009.8[facility] HermannCHEM MJZUF8922-89-79 10:37:0011.8[facility] HermannCHEM LPCLH8027-77-33 10:37:0059[facility]annCHEM JLERN0726-81-89 10:37:002.9[facility] TkhirqyJTDSVBRHOT3241-53-18 10:37:006.8 [facility] ZfdxxyzVPQJTIGYAP3070-54-79 10:37:004.47[facility]annHEMATOLOGY 2020-08-29 10:37:0010.6[facility] NgwojarJVRYFWFOHL4428-62-65 10:37:0034.0[facility] KfvkrfqDVZPHKOHJF1584-41-09 10:37:0076.1[facility] GpmcaowJZCRXSFWXU9221-78-94 10:37:00 Test Item Value Reference Range Interpretation Comments MCH (test code = MCH) 23.8 pg 27.0-31.0 [facility] KgpalugMZFSELERTH8402-56-14 10:37:0031.3[facility]annHEMATOLOGY 2020-08-29 10:37:0018.2[facility] QpxwiejBSKFXNBPWO9118-65-53 10:37:78202Tevkqxkw QrrclxuZAKAGGAWCE8021-16-94 10:37:007.5[facility] IzqqpogYPMETQJDET9982-54-10 10:37:00 Test Item Value Reference Range Interpretation Comments PT (test code = PT) 12.8 s 12.0-14.7 [facility] NhfqwzpLWGYDVVVAS9842-44-38 10:37:00 Test Item Value Reference Range Interpretation Comments INR (test code = INR) 0.97 1 0.85-1.17 [facility] JswidjaCXDKIRBMPS8750-83-39 10:37:00 Test Item Value Reference Range Interpretation Comments PTT (test code = PTT) 25.0 s 22.9-35.8 [facility] VphtquwWTBOCFLPLA1887-56-57 10:37:0070.5[facility]annHEMATOLOGY 2020-08-29 10:37:0018.8[facility] YthwjflMWAMJBJOPX9849-32-08 10:37:009.5[facility] IyptcvhYPUXYCGEYS0981-57-15 10:37:000.9[facility] UrbgngqIEYHZWPECR6211-48-41 10:37:000.3[facility] RmqtnusEZMFEOVBPB8616-85-58 10:37:004.8[facility] KIVXPHUYDP8106-86-79 10:37:001.3[facility] FctsubnXJROGZAOWF6532-42-47 10:37:000.6 [facility] IsvjldcYWWOEBNFCN6335-15-03 10:37:000.1[facility]annHEMATOLOGY 2020-08-29 10:37:001+ *ABN*(08/29/20 5:37 AM)[facility] HqhnjlxLUDQKKUNKM9620-22-14 10:37:00Not Detected (08/29/20 5:37 AM)[facility], TV,PCR, IN ZHVWP9561-79-60 15:38:00 Test Item Value Reference Range Interpretation Comments FT (test code = CHTR) Not detected (qualifier Not Detected N value) FT (test code = Not detected (qualifier Not Detected N NGONO) value) FT (test code = TRVG) Not detected (qualifier Not Detected N value) [facility] ZKGGQHEKRZI8309-28-20 10:57:00 Test Item Value Reference Range Interpretation Comments Color (test code = UCOLR) Dk. Yellow Clarity (test code = UCLAR) Hazy Glucose (test code = UGLUC) NEGATIVE NEGATIVE N Bilirubin (test code = UBILI) NEGATIVE NEGATIVE N Ketones (test code = UKET) NEGATIVE NEGATIVE N Specific [place] (test code = 1.025 1.005-1.030 A USPGR) [...] = None Seen None Seen N URCRYS) [facility]"
[2022-06-01] MEDS ORDERED: MORPHINE 4 MG/ML SYR ONE (17:30)
[2022-06-01] MEDS ORDERED: ONDANSETRON 4 MG/2 ML VIAL ONE (17:30)
[2022-06-01 17:32] LABS: Absolute Lymphocytes (CBC) 1.3 K/uL (0.7-4.9); Hematocrit 36.4 % (36.0-45.0); Lymphocytes % 25.4 % (15.3-44.8); MCV 92.2 fL (80-100); RBC Red Blood Cell Count 3.95 M/uL (3.86-4.86)
[2022-06-01 17:36] LABS: Protime INR 1.02
[2022-06-01 17:52] LABS: Magnesium 2.3 mg/dL (1.6-2.4); Potassium 3.6 mmol/L (3.5-5.1)
--- NOTE | 2022-06-01 18:14 | RAD REPORT ---
EXAM DESCRIPTION: RAD - Chest Single View - 06/01/2022 5:52 pm CLINICAL HISTORY: CHEST PAIN COMPARISON: Portable 03/09/2022 TECHNIQUE: AP portable chest image was obtained 06/01/2022 5:52 pm . FINDINGS: Lung volumes are low. No peripheral mass or consolidation. No significant failure or volum e overload findings seen. Cardiac silhouette is enlarged but stable. No abnormal vascular engorgement . No measurable pleural effusion and no pneumothorax. No acute bony abnormality seen. Bilateral should er joint prostheses in place. No acute aortic findings suspected. IMPRESSION: No acute cardiopulmonary process. Above detailed findings are similar to 05/09/2022.
[2022-06-01] MEDS ORDERED: IBUPROFEN 400 MG TAB ONE (19:03)
--- NOTE | 2022-06-01 21:11 | ER ---
Nurse's Notes [facility] Name: Marjan Kolb Age: 67 yrs Sex: Female : 1955 Arrival Date: 06/01/2022 Time: 15:45 Bed 10 Private MD: Diagnosis: Chest pain, unspecified;Abdominal pain, unspecified Presentation: 06/01 15:51 Chief complaint: Patient states: CP and bilateral leg weakness for 1 day. EMS states: ll1 aspirin 324 mg PO, 1 nitro , BS 120, VSS 12 lead NS with PAC's. Coronavirus screen: Vaccine status: Patient reports receiving the 2nd dose of the covid vaccine. Client denies travel out of the [place] in the last 14 days. At this time, the client does not indicate any symptoms associated with coronavirus-19. Ebola Screen: Patient denies travel to an Ebola-affected area in the 21 days before illness onset. Initial Sepsis Screen: Does the patient meet any 2 criteria? No. Patient's initial sepsis screen is negative. Does the patient have a suspected source of infection? No. Patient's initial sepsis screen is negative. Risk Assessment: Do you want to hurt yourself or someone else? Patient reports no desire to harm self or others. Onset of symptoms was June 01, 2022. 15:51 Method Of Arrival: EMS ll1 15:51 Acuity: BLAYNE 3 ll1 Triage Assessment: 15:50 General: Appears uncomfortable, Behavior is cooperative, appropriate for age. Pain: ll1 Complains of pain in head/chest. Neuro: Reports headache. Cardiovascular: Reports chest pain. Historical: - Allergies: 15:50 Azithromycin; ll1 15:50 Bactrim; ll1 15:50 butorphanol; ll1 15:50 Fentanyl; ll1 15:50 Reglan; ll1 15:50 Sulfa (Sulfonamide Antibiotics); ll1 15:50 TRIMETHOPRIM; ll1 - PMHx: 15:50 Anxiety; Atrial fibrillation; Bipolar disorder; esophageal varicies; Hepatitis; HIV ll1 positive; Hypertensive disorder; Migraine; panic attack; - Immunization history:: Client reports receiving the 2nd dose of the Covid vaccine. - Social history:: Smoking status: Patient denies any tobacco usage or history of. Screenin:30 [facility] ED Fall Risk Assessment (Adult) History of falling in the last 3 months, eh3 including since admission No falls in past 3 months (0 pts) Confusion or Disorientation No (0 pts) Intoxicated or Sedated No (0 pts) Impaired Gait No (0 pts) Mobility Assist Device Used No (0 pt) Altered Elimination No (0 pt) Score/Fall Risk Level 0 - 2 = Low Risk. Abuse screen: Denies threats or abuse. Denies injuries from another. Nutritional screening: No deficits noted. Tuberculosis screening: No symptoms or risk factors identified. Assessment: 16:34 Reassessment: No changes from previously documented assessment. reports abdominal pain ll1 now, pain 03/01. MARTIN still 03/01. Vital recheck. 17:30 General: Appears in no apparent distress. uncomfortable, Behavior is calm, cooperative, eh3 appropriate for age. Pain: Complains of pain in head Pain does not radiate. Pain began suddenly, at 10am today. Neuro: Level of Consciousness is awake, alert, obeys commands, Oriented to person, place, time, situation. Cardiovascular: Capillary refill < 3 seconds Patient's skin is warm and dry. Respiratory: Airway is patent Respiratory effort is even, unlabored, Respiratory pattern is regular, symmetrical. GI: Abdomen is round non-distended, Reports nausea. : No signs and/or symptoms were reported regarding the genitourinary system. EENT: No signs and/or symptoms were reported regarding the EENT system. Derm: No signs and/or symptoms reported regarding the dermatologic system. Musculoskeletal: No signs and/or symptoms reported regarding the musculoskeletal system. 18:30 Reassessment: Patient appears in no apparent distress at this time. Patient and/or eh3 family updated on plan of care and expected duration. Pain level reassessed. Patient is alert, oriented x 3, equal unlabored respirations, skin warm/dry/pink. Pt states pain got better after morphine but headache is back and requests more pain medicine, provider notified. 19:30 Reassessment: Patient appears in no apparent distress at this time. Patient and/or eh3 family updated on plan of care and expected duration. Pain level reassessed. Patient is alert, oriented x 3, equal unlabored respirations, skin warm/dry/pink. 20:30 Reassessment: Patient appears in no apparent distress at this time. Patient and/or eh3 family updated on plan of care and expected duration. Pain level reassessed. Patient is alert, oriented x 3, equal unlabored respirations, skin warm/dry/pink. Vital Signs: 15:51 BP 163 / 81; Pulse 51; Resp 18; Temp 97.9; Pulse Ox 100% ; Height 5 ft. 4 in. (162.56 ll1 cm); Pain 10/10; 16:35 BP 177 / 70; Pulse 50; ll1 17:30 BP 178 / 99; Pulse 59; Resp 18; Pulse Ox 95% on R/A; eh3 18:30 BP 169 / 87; Pulse 60; Resp 18; Pulse Ox 95% on R/A; eh3 19:30 BP 150 / 82; Pulse 59; Resp 18; Pulse Ox 96% on R/A; eh3 ED Course: 15:45 Patient arrived in ED. as 15:52 Triage completed. 1 16:17 Justus Neil PA is PHCP. cp 16:18 Heladio Collins MD is Attending Physician. cp 16:34 Arm band placed on. 1 17:24 Yazmin Bennett, ASHLEY is Primary Nurse. eh3 17:30 Patient has correct armband on for positive identification. Bed in low position. Call 3 light in reach. Side rails up X2. Client placed on continuous cardiac and pulse oximetry monitoring. NIBP monitoring applied. Door closed. Noise minimized. Lights dimmed. Warm blanket given. 17:30 Maintain EMS IV. Dressing intact. Good blood return noted. Site clean \T\ dry. Gauge \T\ eh 3 site: 20g RAC. Patient maintains SpO2 saturation greater than 95% on room air. 17:54 XRAY Chest (1 view) In Process Unspecified. EDMS 21:47 No provider procedures requiring assistance completed. IV discontinued, intact, eh3 bleeding controlled, No redness/swelling at site. Pressure dressing applied. Administered Medications: 17:39 Drug: morphine 4 mg Route: IVP; Infused Over: 4 mins; Site: right antecubital; eh3 19:00 Follow up: Response: Pain is decreased 3 17:39 Drug: Zofran (Ondansetron) 4 mg Route: IVP; Site: right antecubital; eh3 19:00 Follow up: Response: No adverse reaction 3 19:12 Drug: Ibuprofen 800 mg Route: PO; vc1 20:35 Follow up: Response: Pain is decreased eh3 Medication: 21:47 VIS not applicable for this client. eh3 Outcome: 21:11 Discharge ordered by . cp 21:47 Discharged to home ambulatory. eh3 21:47 Condition: stable 21:47 Discharge instructions given to patient, Instructed on discharge instructions, follow up and referral plans. Demonstrated understanding of instructions, follow-up care. 21:47 Patient left the ED. eh3 Signatures: Dispatcher [employer] EDRadha Francisco Corey, PA PA cp Lewis, Lynsay, RN RN ll1 Deyanira Medina RN RN vc1 Yazmin Bennett RN RN eh3 Corrections: (The following items were deleted from the chart) 20:45 19:16 Reassessment: Patient appears in no apparent distress at this time. Patient eh3 and/or family updated on plan of care and expected duration. Pain level reassessed. Patient is alert, oriented x 3, equal unlabored respirations, skin warm/dry/pink. eh3 20:46 19:16 BP 150 / 82; Pulse 59bpm; Resp 18bpm; Pulse Ox 96% RA; eh3 eh3
--- NOTE | 2022-06-01 21:11 | EDPHYS ---
Physician Documentation [facility] Name: Marjan Kolb Age: 67 yrs Sex: Female : 1955 Arrival Date: 06/01/2022 Time: 15:45 Bed 10 Private MD: ED Physician Heladio Collins HPI: 06/01 17:05 This 67 yrs old Female presents to ER via EMS with complaints of Chest Pain. cp 17:05 The patient or guardian reports chest pain that is located primarily in the anterior cp chest wall, left. Onset: today, about 1400. The pain does not radiate. Associated signs and symptoms: Pertinent positives: upper abdomen pain, leg weakness, Pertinent negatives: diaphoresis, lower extremity pain, lower extremity swelling, shortness of breath, syncope, vomiting. The chest pain is described as aching. 17:05 Duration: The patient or guardian reports a single episode, that is still ongoing. cp Historical: - Allergies: 15:50 Azithromycin; ll1 15:50 Bactrim; ll1 15:50 butorphanol; ll1 15:50 Fentanyl; ll1 15:50 Reglan; ll1 15:50 Sulfa (Sulfonamide Antibiotics); ll1 15:50 TRIMETHOPRIM; ll1 - PMHx: 15:50 Anxiety; Atrial fibrillation; Bipolar disorder; esophageal varicies; Hepatitis; HIV ll1 positive; Hypertensive disorder; Migraine; panic attack; - Immunization history:: Client reports receiving the 2nd dose of the Covid vaccine. - Social history:: Smoking status: Patient denies any tobacco usage or history of. ROS: 17:10 Constitutional: Negative for body aches, chills, fever, poor PO intake. cp 17:10 Eyes: Negative for injury, pain, redness, and discharge. cp 17:10 ENT: Negative for drainage from ear(s), ear pain, sore throat, difficulty swallowing, difficulty handling secretions. 17:10 Cardiovascular: Positive for chest pain, Negative for edema, palpitations. 17:10 Respiratory: Negative for cough, shortness of breath, wheezing. 17:10 Abdomen/GI: Positive for abdominal pain, Negative for vomiting, diarrhea, constipation. 17:10 Back: Negative for pain at rest, pain with movement. 17:10 : Negative for urinary symptoms. 17:10 Neuro: Positive for headache, Negative for altered mental status, numbness, syncope, weakness. 17:10 All other systems are negative. Exam: 17:15 Constitutional: The patient appears in no acute distress, alert, awake, cp non-diaphoretic, non-toxic, well developed, well nourished. 17:15 Head/Face: Normocephalic, atraumatic. cp 17:15 Eyes: Periorbital structures: appear normal, Conjunctiva: normal, no exudate, no injection, Sclera: no appreciated abnormality, Lids and lashes: appear normal, bilaterally. 17:15 ENT: External ear(s): are unremarkable, Nose: is normal, Mouth: Lips: moist, Oral mucosa: moist, Posterior pharynx: Airway: no evidence of obstruction, patent. 17:15 Neck: ROM/movement: is normal, is supple, without pain, no range of motions limitations. 17:15 Chest/axilla: Inspection: normal. 17:15 Cardiovascular: Rate: bradycardic, Rhythm: regular, Edema: is not appreciated, JVD: is not appreciated. 17:15 Respiratory: the patient does not display signs of respiratory distress, Respirations: normal, no use of accessory muscles, no retractions, labored breathing, is not present, Breath sounds: are clear throughout, no decreased breath sounds, no stridor. 17:15 Abdomen/GI: Inspection: abdomen appears normal, Bowel sounds: active, all quadrants, Palpation: soft, in all quadrants, mild abdominal tenderness, in the epigastric area, right upper quadrant and left upper quadrant, rebound tenderness, is not appreciated. 17:15 Back: pain, ROM is normal. 17:15 Skin: cellulitis, is not appreciated, no rash present. 17:15 Neuro: Orientation: to person, place \T\ time. Mentation: is normal, Motor: moves all fours, strength is normal, Sensation: is normal. 17:33 ECG was reviewed by the Attending Physician. cp Vital Signs: 15:51 BP 163 / 81; Pulse 51; Resp 18; Temp 97.9; Pulse Ox 100% ; Height 5 ft. 4 in. (162.56 ll1 cm); Pain 10/10; 16:35 BP 177 / 70; Pulse 50; ll1 17:30 BP 178 / 99; Pulse 59; Resp 18; Pulse Ox 95% on R/A; eh3 18:30 BP 169 / 87; Pulse 60; Resp 18; Pulse Ox 95% on R/A; eh3 19:30 BP 150 / 82; Pulse 59; Resp 18; Pulse Ox 96% on R/A; 3 MDM: 17:00 Differential diagnosis: abnormal EKG, acute myocardial infarction, acute pericarditis, cp pulmonary embolus, stable angina, unstable angina, drug seeking behavior. 17:09 Patient medically screened. 21:10 Data reviewed: vital signs, nurses notes, lab test result(s), EKG, radiologic studies, cp plain films. 21:10 I considered the following discharge prescriptions or medication management in the emergency department Medications were administered in the Emergency Department. See MAR repeat narcotic pain meds not given after multiple requests by patient. Test considered but Not performed: Labs: d-dimer. Other Details CT aorta. External Records Reviewed: previous ED records. Care significantly affected by the following chronic conditions: Hypertension, atrial fibrillation. Counseling: I had a detailed discussion with the patient and/or guardian regarding: the historical points, exam findings, and any diagnostic results supporting the discharge/admit diagnosis, the presence of at least one elevated blood pressure reading (>120/80) during this emergency department visit, lab results, radiology results, to return to the emergency department if symptoms worsen or persist or if there are any questions or concerns that arise at home. ED course: VSS. Initial and repeat troponin normal. EKG today similar to previous EKG. Low suspicion for acute coronary syndrome. Patient has been seen in this ED on multiple occasions for similar complaints requesting narcotic pain meds. Will discharge to home for continued monitoring. 06/01 16:48 Order name: Basic Metabolic Panel; Complete Time: 18:25 06/01 18:25 Interpretation: Normal except: BUN 22; CRE 1.13; GFR 54. 06/01 16:48 Order name: CBC with Diff; Complete Time: 18:25 06/01 18:25 Interpretation: Normal except: PLT 136. 06/01 16:48 Order name: Magnesium; Complete Time: 18:25 06/01 16:48 Order name: NT PRO-BNP; Complete Time: 18:25 06/01 18:25 Interpretation: Abnormal: NT PRO-BNP 3680. 06/01 16:48 Order name: PT-INR; Complete Time: 18:25 06/01 16:48 Order name: Troponin HS; Complete Time: 18:25 cp 06/01 18:26 Interpretation: Troponin HS 14.0; Reviewed. 06/01 16:48 Order name: XRAY Chest (1 view); Complete Time: 18:25 cp 06/01 18:25 Interpretation: Report review. 06/01 16:48 Order name: EKG; Complete Time: 16:49 cp 06/01 16:48 Order name: Ptt, Activated; Complete Time: 18:25 cp 06/01 17:16 Order name: Lipase; Complete Time: 18:25 cp 06/01 20:10 Order name: Troponin High Sensitivity; Complete Time: 21:10 cp 06/01 21:10 Interpretation: Reviewed. 06/01 16:48 Order name: Cardiac monitoring; Complete Time: 19:12 cp 06/01 16:48 Order name: EKG - Nurse/Tech; Complete Time: 18:26 cp 06/01 16:48 Order name: IV Saline Lock; Complete Time: 17:25 cp 06/01 16:48 Order name: Labs collected and sent; Complete Time: 17:25 cp 06/01 16:48 Order name: O2 Per Protocol; Complete Time: 17:39 cp 06/01 16:48 Order name: O2 Sat Monitoring; Complete Time: 17:39 cp EC:33 Rate is 49 beats/min. Rhythm is regular. QRS interval is normal. QT interval is cp prolonged at 522 msec. Interpreted by me. Reviewed by me. Administered Medications: 17:39 Drug: morphine 4 mg Route: IVP; Infused Over: 4 mins; Site: right antecubital; eh3 19:00 Follow up: Response: Pain is decreased eh3 17:39 Drug: Zofran (Ondansetron) 4 mg Route: IVP; Site: right antecubital; eh3 19:00 Follow up: Response: No adverse reaction eh3 19:12 Drug: Ibuprofen 800 mg Route: PO; vc1 20:35 Follow up: Response: Pain is decreased eh3 Disposition Summary: 06/01/22 21:11 Discharge Ordered Location: Home cp Problem: new cp Symptoms: have improved cp Condition: Stable cp Diagnosis - Chest pain, unspecified cp - Abdominal pain, unspecified cp Followup: cp - With: Private Physician - When: 1 - 2 days - Reason: Recheck today's complaints Discharge Instructions: - Discharge Summary Sheet cp - Abdominal Pain, Adult cp - Nonspecific Chest Pain, Adult cp - Aspirin and Your Heart cp - Chronic Pain, Adult cp Forms: - Medication Reconciliation Form cp - Thank You Letter cp - Antibiotic Education cp - Prescription Opioid Use cp Signatures: Dispatcher [employer] EDMS Justus Neil PA PA cp Lewis, Lynsay, RN RN ll1 Deyanira Medina RN RN vc1 Yazmin Bennett RN RN eh3 Corrections: (The following items were deleted from the chart) 06/02 17:17 17:17 This 67 yrs old Female presents to ER via EMS with complaints of Chest Pain. cp cp
[2022-06-01 22:01] VITALS: TEMP 97.9
[2022-06-01 22:07] VITALS: BP 150/82; O2SAT 96
--- NOTE | 2022-06-02 14:54 | EKG ---
Test Date: 2022-06-01 Test Time: 17:28:01 [employer] Supervisor: YAZAN MEASUREMENT RESULTS: Intervals: Rate: 49 MT: QRSD: 74 QT: 522 QTc: 471 [place]: P: MT: QRS: 62 T: 95 INTERPRETIVE STATEMENTS: Junctional rhythm ST & T wave abnormality, consider lateral ischemia Prolonged QT Abnormal ECG Compared to ECG 04/30/2022 01:39:05 Junctional rhythm now present ST (T wave) deviation now present Possible ischemia now present Prolonged QT interval now present Sinus rhythm no longer present Left ventricular hypertrophy no longer present Early repolarization no longer present Electronically Signed On 06-02-22 14:53:28 NUCLEAR OFFICER by Mike Lund
== END 2022-06-01 21:47 | disposition home or self-care (01) ==
LOC: ER 15:43
DX: R07.89 Other chest pain (principal); R10.10 Upper abdominal pain, unspecified; I10 Essential (primary) hypertension; Z21 Asymptomatic human immunodeficiency virus [HIV] infection status; Z88.1 Allergy status to other antibiotic agents; Z88.2 Allergy status to sulfonamides; Z88.8 Allergy status to other drugs, medicaments and biological substances
CPT/HCPCS: 93005; 85025; 80048; 36415; 83735; 85610; 85730; 84484 ×2; 83690; 83880; 71045; 96375; 96374; 99284; J2405

== ENCOUNTER 2022-06-11 16:08 | Emergency (ER) | payer OTHER ==
--- OUTSIDE RECORDS SUMMARY | 2022-06-11 16:26 | XMS REPORT | Continuity of Care Document ---
:1955 Author Organization [facility] t Address [address] [place] [address] Care Team Providers Name Role Phone Urmila [...] Attending Clinician Unavailable Robbi Bal Attending Clinician [facility] Attending Clinician Unavailable Isaias Whiteside RN Attending Clinician Unavailable TOMY MARIE Attending Clinician Unavailable Reilly Means MD Attending Clinician Ofe Shields MD Attending Clinician Tomy Marie MD Attending Clinician Doctor Unassigned, [place] Attending Clinician Unavailable Bill COLES Attending Clinician Unavailable Bill Rose Attending Clinician CHARITY MCALLISTER Attending Clinician Unavailable Charity Mcallister MD Attending Clinician GADIEL KOEHLER Attending Clinician Unavailable Mike Lund Attending Clinician Unavailable NIKOLAI REEVES Attending Clinician Unavailable Eliseo Arce MD Attending Clinician Carol Ann IZQUIERDO, Sarai Lieberman Attending Clinician [phone] Ashly Pelletier MA Attending Clinician Unavailable Dagoberto Bass MD Attending Clinician [place] Evangelista Attending Clinician Lab, [facility] P[facility] I Attending Clinician Unavailable Monica Rodas MA Attending Clinician Unavailable Agustina Ortiz MA Attending Clinician Unavailable Rody Maguire RN Attending Clinician Unavailable Remigio MD, Saraswathi V. Attending Clinician HEMATPOUR, BEVERLY Attending Clinician Unavailable Caridad SALGUERO, Gloria Attending Clinician Xiao RAMIREZ, Michael Corbin Attending Clinician Unavailable Team, [facility] Attending Clinician UnavailDO PORSHA Newell Attending Clinician Unavailable Gadiel Koehler MD Attending Clinician Tyrone JENKINS, Eveline Sierra Attending Clinician Eladio Colorado RN Attending Clinician Unavailable Geraldine SALGUERO, Leyda Attending Clinician [phone] Selvin RAMIREZ, Stefanie Attending Clinician Unavailable [...] Number Effective Date Expiration Date S gabino [facility] [id number] 2012 STAR PLUS OON 00:00:00 [facility] [id number] 2019 DUAL COMPLETE HMO 00:00:00 [facility] [id number] 2019 PLUS 00:00:00 [facility] [id number] 2019 [place] STAR 00:00:00 [employer] MEDICARE ADV [id number] 2019 2019 00:00:00 00:00:00 Problems Condition Condition Condition Status Onset Resolution Last Treating Co mments Source Name Details Category Date Date Treatment Clinician Date Dyspnea, Dyspnea, Disease Active Unive rs unspecifie unspecifie 02-11 it y of d type d type 00:00: [place] [address] Medical Branch Gastropare Gastropare Disease Active Overview : Methodi sis sis 4-[address] 00:00: [facility] 00 note l might be different from the original. Added automatic ally from request for surgery [id number] Dysphagia Dysphagia Disease Active Overview: Methodi 4-[address] 00:00: g [facility] this [facility] 00 note l might be different from the original. 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 2020-10-15 Get PVI PVI 3-30 17:07:00 l ABLATION ABLATION 00:00: Patel n W/ CARTO / W/ CARTO / 00 GA / T GA / T Active 08/19/2020 [facility] Food Food Disease Active 2019-05 Methodi [...] 2014-05 Univers 0-03 ity of 00:00: [place] [facility] Hypovolemi Hypovolemi Disease Active [...] [facility] hoxazole 1-25 Clear 00:00: Garcia 00 [facility] trimetho DA Active SV [facility] prim 1-25 Clear 00:00: Garcia [facility] codeine DA Active SV N/V [facility] 1-25 Clear 00:00: Garcia [facility] Metoclop Propensi Active UT ramide ty to 12-12 Health adverse 00:00: reaction 00 s BUTORPHA DRUG Active Unknown-Cmnt Un matt NOL INGREDI 11-25 ity of 00:00: [place] [facility] Butorpha Drug Active Unknown - [...] Univers INGREDI 2-08 ity of 00:00: [place] [facility] TRIMETHO DRUG Active Hives Univers [...] [facility] Natural father Coronary Heart [facility] [place] Disease [facility] Natural [facility] Natural mother [facility] Social History Social Habit Start Date Stop Date Quantity Comments Source History SDOH Confucianism Alcohol Frequency Hospita l History SDOH Confucianism Alcohol Std Drinks Hospit al History SDMS [facility]ism Alcohol Binge Hospital Exposure to 2022-04-30 2022-05-10 Yes University of SARS-CoV-2 (event) 00:00:00 10:25:00 [facility] Tobacco use and 2022-02-11 2022-02-11 Former smokeless Uni versity of exposure 00:00:00 00:00:00 tobacco user [facility] Tobacco Comment 2022-02-11 2022-02-11 Smokes approx 1-2 Un iversity of 00:00:00 00:00:00 cigarettes per [facility] day when she Branch smokes Alcohol intake 2020-12-08 2020-12-08 Current drinker [facility] dist 00:00:00 00:00:00 of [facility] (finding) Cigarettes smoked 2020-09-05 2020-09-[address] current ([facility] 00:[facility] - [facility] Cigarette 2020-09-05 2020-09-05 Confucianism pack-years 00:00:00 00:00:00 Hospital Alcohol Comment 2016-09-23 2016-09-23 rare Confucianism 00:00:00 00:00:00 Hospital History of tobacco 2011-09-29 User of smokeless University of use 00:00:00 tobacco [facility] Sex Assigned At [birth year] [facility] 00:00:00 00:00:00 Smoking Status Start Date Stop Date Source Ex-smoker 2022-02-11 00:00:00 2022-02-11 00:00:00 Universi ty of [facility] Medications Ordered Filled Start Stop Current Ordering Indication Dosage Frequency Signature Comments Components Source Medication Medication Date Date Medication? Clinician (SIG) Name Name potassium 2021-05- No 10meq 10 mEq, IV Univers chloride in 07-11 Piggyback, i ty of water 10 20:00: 22:00 ONCE, 1 [place] mEq/100 mL 00 :00 dose, On Medic al RTU 10 mEq [facility] 05/10/22 at 1400, Administer over 60 Minutes, 100 mL magnesium 2021-05 No 800mg 800 mg, Uni vers oxide 07-11 Oral, ity of (MAG-OX 20:00: 19:37 ONCE, 1 [place] 400) tablet 00 :00 dose, On Medi porfirio 800 mg [facility] 05/10/22 at 1400, Routine KCL 2021-05- No 40meq 40 mEq, Univers (KLOR-CON 07-11 Oral, ity of M20) tablet 19:15: 19:37 ONCE, 1 [place] 40 mEq 00 :00 dose, On Medical [facility] 05/10/22 at 1315, JOE hydralAZINE 2021-05- No 10mg 10 mg, Uni vers (APRESOLINE 07-11 Slow IV ity of ) injection 18:45: 18:42 [place] 10 mg 00 :00 ONCE, 1 Medical dose, On [facility] 05/10/22 at 1245, JOE NaCl 0.9% 2021-05- No 1000mL at 999 Uni vers (NS) bolus 07-11 mL/hr, ity of infusion 17:45: 20:00 1,000 mL, [place] 1,000 mL 00 :00 IV Medical Infusion, Branch ONCE, 1 dose, On [facility] 05/10/22 at 1145, JOE cefpodoxime 2021-05- Yes [id number] 100mg Take 1 Univers 100 mg 2-17 12-25 tablet by ity of tablet 00:00: 05:59 mouth in [place] 00 :00 the [facility] Branch and 1 tablet in the evening. Do all this for 7 days. cefpodoxime 2021-05- Yes [id number] 100mg Take 1 Univers 100 mg 2-17 12-25 tablet by ity of tablet 00:00: 05:59 mouth in [place] 00 :00 the [facility] morning Branch and 1 tablet in the evening. Do all this for 7 days. cefpodoxime 2021-05- Yes [id number] 100mg Take 1 Univers 100 mg 2-17 12-25 tablet by ity of tablet 00:00: 05:59 mouth in [place] 00 :00 the Medical morning Branch and [...] Infusion, Medical ONCE, 1 Branch dose, On [facility] Branch 05/06/22 at 1800, JOE ketorolac 2021-05 No 15mg 15 mg, Unive rs (TORADOL) 2-15 12-15 Slow IV ity of injection 22:00: 22:19 Push, [place] 15 mg 00 :00 ONCE, 1 Medical dose, On Branch [facility] Branch 05/06/22 at 1600, JOE NaCl 0.9% 2021-05- No 1000mL at 999 Uni vers (NS) bolus 2-15 12-15 mL/hr, ity of infusion 22:00: 23:41 1,000 mL, [place] 1,000 mL 00 :00 IV Medical Infusion, Branch ONCE, 1 dose, On [facility] Branch 05/06/22 at 1600, JOE ondansetron 2021-05- No 8mg 8 mg, Slow Univers (ZOFRAN 2-15 12-15 IV Push, ity of (PF)) 21:15: 22:19 ONCE, 1 [place] injection 8 00 :00 dose, On Medi porfirio mg [place] 05/06/22 at 1515, JOE ondansetron 2021-05 Yes [id number] 1-2 U nivers 4 mg tablet 2-15 tablets ity o f 00:00: every 8 [place] 00 hours as Medical needed for Branch nausea benzonatate 2021-05 Yes [id number] 200mg Take 1 Univers 200 mg 2-15 capsule by ity of capsule 00:00: mouth 3 [place] 00 (three) Medical times Branch daily as needed for Cough. albuterol 2021-05 Yes [id number] 2{puff} Inhale 2 Univers 90 2-15 Puffs ity of mcg/actuati 00:00: every 4 [place] on inhaler 00 (four) Medical hours as Branch needed for Wheezing or Shortness of Breath. butalbital- 2021-05 Yes [id number] 1{tbl} Take 1 Univers acetaminoph 2-15 tablet by ity of en-caff 00:00: mouth [place] 50-325-40 00 every 4 Medical mg tablet (four) Branch hours as needed (headache) . ondansetron 2021-05 Yes [id number] 1-2 U nivers 4 mg tablet 2-15 tablets ity o f 00:00: every 8 [place] 00 hours as Medical needed for Branch nausea benzonatate 2021-05 Yes [id number] 200mg Take 1 Univers 200 mg 2-15 capsule by ity of capsule 00:00: mouth 3 [place] 00 (three) Medical times Branch daily as needed for Cough. albuterol 2021-05 Yes [id number] 2{puff} Inhale 2 Univers 90 2-15 Puffs ity of mcg/actuati 00:00: every 4 [place] on inhaler 00 (four) Medical hours as Branch needed for Wheezing or Shortness of Breath. butalbital- 2021-05 Yes [id number] 1{tbl} Take 1 Univers acetaminoph 2-15 tablet by ity of en-caff 00:00: mouth [place] 50-325-40 00 every 4 Medical mg tablet (four) Branch hours as needed (headache) . ondansetron 2021-05 Yes [id number] 1-2 U nivers 4 mg tablet 2-15 tablets ity o f 00:00: every 8 [place] 00 hours as Medical needed for Branch nausea benzonatate 2021-05 Yes [id number] 200mg Take 1 Univers 200 mg 2-15 capsule by ity of capsule 00:00: mouth 3 [place] 00 (three) Medical times Branch daily as needed for Cough. albuterol 2021-05 Yes [id number] 2{puff} Inhale 2 Univers 90 2-15 Puffs ity of mcg/actuati 00:00: every 4 [place] on inhaler 00 (four) Medical hours as Branch needed for Wheezing or Shortness of Breath. butalbital- 2021-05 Yes [id number] 1{tbl} Take 1 Univers acetaminoph 2-15 tablet by ity of en-caff 00:00: mouth [place] 50-325-40 00 every 4 Medical mg tablet (four) Branch hours as needed (headache) . ondansetron 2021-05 Yes [id number] 1-2 U nivers 4 mg tablet 2-15 tablets ity o f 00:00: every 8 [place] 00 hours as Medical needed for Branch nausea benzonatate 2021-05 Yes [id number] 200mg Take 1 Univers 200 mg 2-15 capsule by ity of capsule 00:00: mouth 3 [place] 00 (three) Medical times Branch daily as needed for Cough. albuterol 2021-05 Yes [id number] 2{puff} Inhale 2 Univers 90 2-15 Puffs ity of mcg/actuati 00:00: every 4 [place] on inhaler 00 (four) Medical hours as Branch needed for Wheezing or Shortness of Breath. butalbital- 2021-05 Yes [id number] 1{tbl} Take 1 Univers acetaminoph 2-15 tablet by ity of en-caff 00:00: mouth [place] 50-325-40 00 every 4 Medical mg tablet (four) Branch hours as needed (headache) . ondansetron 2021-05 Yes [id number] 1-2 U nivers 4 mg tablet 2-15 tablets ity o f 00:00: every 8 [place] 00 hours as Medical needed for Branch nausea benzonatate 2021-05 Yes [id number] 200mg Take 1 Univers 200 mg 2-15 capsule by ity of capsule 00:00: mouth 3 [place] 00 (three) Medical times Branch daily as needed for Cough. albuterol 2021-05 Yes [id number] 2{puff} Inhale 2 Univers 90 2-15 Puffs ity of mcg/actuati 00:00: every 4 [place] on inhaler 00 (four) Medical hours as Branch needed for Wheezing or Shortness of Breath. butalbital- 2021-05 Yes [id number] 1{tbl} Take 1 Univers acetaminoph 2-15 tablet by ity of en-caff 00:00: mouth [place] 50-325-40 00 every 4 Medical mg tablet (four) Branch hours as needed (headache) . ondansetron 2021-05 Yes [id number] 1-2 U nivers 4 mg tablet 2-15 tablets ity o f 00:00: every 8 [place] 00 hours as Medical needed for Branch nausea benzonatate 2021-05 Yes [id number] 200mg Take 1 Univers 200 mg 2-15 capsule by ity of capsule 00:00: mouth 3 [place] 00 (three) Medical times Branch daily as needed for Cough. albuterol 2021-05 Yes [id number] 2{puff} Inhale 2 Univers 90 2-15 Puffs ity of mcg/actuati 00:00: every 4 [place] on inhaler 00 (four) Medical hours as Branch needed for Wheezing or Shortness of Breath. butalbital- 2021-05 Yes [id number] 1{tbl} Take 1 Univers acetaminoph 2-15 tablet by ity of en-caff 00:00: mouth [place] 50-325-40 00 every 4 Medical mg tablet (four) Branch hours as needed (headache) . nirmatrelvi 2021-05- Yes [id number] 2{tbl} Take 2 Univers r-ritonavir 2-15 12-21 tablets by i ty of (PAXLOVID, 00:00: 05:59 mouth in [place] EUA,) 300 00 :00 the Medical mg (150 mg morning Branch x 2)-100 mg and 2 tablet tablets in the evening. Do all this for 5 days. nirmatrelvi 2021-05- Yes [id number] 2{tbl} Take 2 Univers r-ritonavir 2-15 12-21 tablets by i ty of (PAXLOVID, 00:00: 05:59 mouth in [place] EUA,) 300 00 :00 the Medical mg (150 mg morning Branch x 2)-100 mg and 2 tablet tablets in the evening. Do all this for 5 days. nirmatrelvi 2021-05- Yes [id number] 2{tbl} Take 2 Univers r-ritonavir 2-15 12-21 tablets by i ty of (PAXLOVID, 00:00: 05:59 mouth in [place] EUA,) 300 00 :00 the Medical mg (150 mg morning Branch x 2)-100 mg and 2 tablet tablets in the evening. Do all this for 5 days. nirmatrelvi 2021-05- Yes [id number] 2{tbl} Take 2 Univers r-ritonavir 2-15 - [...] 04/22/22 at 1645, Routine amoxicillin 2021-05 Yes [id number] 1{tbl} Take 1 Univers -clavulanat 2- [id number] tablet by i ty of e 875-125 00:00: mouth [place] mg per 00 every 12 Medical tablet (twelve) Branch hours. ondansetron 2021-05 Yes [id number] 4mg Take 1 Univers 4 mg 2- 607084 tablet by ity of disintegrat 00:00: mouth [place] ing tablet 00 every 8 Medica l (eight) Branch hours as needed for Nausea and Vomiting (N/V). amoxicillin 2021-05 Yes [id number] 1{tbl} Take 1 Univers -clavulanat 2- [id number] tablet by i ty of e 875-125 00:00: mouth [place] mg per 00 every 12 Medical tablet (twelve) Branch hours. ondansetron 2021-05 Yes [id number] 4mg Take 1 Univers 4 mg 2-01 [id number] tablet by ity of disintegrat 00:00: mouth [place] ing tablet 00 every 8 Medica l (eight) Branch hours as needed for Nausea and Vomiting (N/V). amoxicillin 2021-05 Yes [id number] 1{tbl} Take 1 Univers -clavulanat 2-01 [id number] tablet by i ty of e 875-125 00:00: mouth [place] mg per 00 every 12 Medical tablet (twelve) Branch hours. ondansetron 2021-05 Yes [id number] 4mg Take 1 Univers 4 mg 2-01 [id number] tablet by ity of disintegrat 00:00: mouth [place] ing tablet 00 every 8 Medica l (eight) Branch hours as needed for Nausea and Vomiting (N/V). amoxicillin 2021-05 Yes [id number] 1{tbl} Take 1 Univers -clavulanat 2-01 [id number] tablet by i ty of e 875-125 00:00: mouth [place] mg per 00 every 12 Medical tablet (twelve) Branch hours. ondansetron 2021-05 Yes [id number] 4mg Take 1 Univers 4 mg 2-01 [id number] tablet by ity of disintegrat 00:00: mouth [place] ing tablet 00 every 8 Medica l (eight) Branch hours as needed for Nausea and Vomiting (N/V). amoxicillin 2021-05 Yes [id number] 1{tbl} Take 1 Univers -clavulanat 2-01 [id number] tablet by i ty of e 875-125 00:00: mouth [place] mg per 00 every 12 Medical tablet (twelve) Branch hours. ondansetron 2021-05 Yes [id number] 4mg Take 1 Univers 4 mg 2- [id number] tablet by ity of disintegrat 00:00: mouth [place] ing tablet 00 every 8 Medica l (eight) Branch hours as needed for Nausea and Vomiting (N/V). amoxicillin 2021-05 Yes [id number] 1{tbl} Take 1 Univers -clavulanat 2-01 [id number] tablet by i ty of e 875-125 00:00: mouth [place] mg per 00 every 12 Medical tablet (twelve) Branch hours. ondansetron 2021-05 Yes [id number] 4mg Take 1 Univers 4 mg 2-01 [id number] tablet by ity of disintegrat 00:00: mouth [place] ing tablet 00 every 8 Medica l (eight) Branch hours as needed for Nausea and Vomiting (N/V). amoxicillin 2021-05 Yes [id number] 1{tbl} Take 1 Univers -clavulanat 2-01 [id number] tablet by i ty of e 875-125 00:00: mouth [place] mg per 00 every 12 Medical tablet (twelve) Branch hours. ondansetron 2021-05 Yes [id number] 4mg Take 1 Univers 4 mg 2-01 [id number] tablet by ity of disintegrat 00:00: mouth [place] ing tablet 00 every 8 Medica l (eight) Branch hours as needed for Nausea and Vomiting (N/V). amoxicillin 2021-05 Yes [id number] 1{tbl} Take 1 Univers -clavulanat 06-23 [id number] tablet by i ty of e 875-125 00:00: mouth [place] mg per 00 every 12 Medical tablet (twelve) Branch hours. ondansetron 2021-05 Yes [id number] 4mg Take 1 Univers 4 mg 06-23 [id number] tablet by ity of disintegrat 00:00: mouth [place] ing tablet 00 every 8 Medica l (eight) Branch hours as needed for Nausea and Vomiting (N/V). zoster 2021-05- No [id number] .5mL 0.5 mL by Univers vaccine, 0-14 10-15 9104 Intramuscu ity of recombinant 00:00: 04:59 lar route [place] (SHINGRIX, 00 :00 once now Medic al PF,) for 1 Branch injection dose. And repeat in 2-6 months zoster 2021-05- No [id number] .5mL 0.5 mL by Univers vaccine, 0-14 10-15 9104 Intramuscu ity of recombinant 00:00: 04:59 lar route [place] (SHINGRIX, 00 :00 once now Medic al PF,) for 1 Branch injection dose. And repeat in 2-6 months zoster 2021-05- No [id number] .5mL 0.5 mL by Univers vaccine, 0-14 [...] by ity of (LOPRESSOR) 19:28: mouth 2 [place] 100 mg 04 (two) Medical tablet times Branch daily. amLODIPine 2021-0 Yes 10mg Take 10 mg U nivers (NORVASC) 9-27 by mouth ity of 10 mg 19:28: daily. [place] tablet 04 Medical Branch clonazePAM 2021-0 Yes 1mg Take 1 mg Un matt (KLONOPIN) 9-27 by mouth ity o f 1 mg tablet 19:28: at [place] [address] bedtime. Medical Branch traZODone 2021-0 Yes 50mg Take 50 mg Un matt 100 mg 9-27 by mouth ity of tablet 19:28: at [place] [address] bedtime. Medical Branch hydralAZINE 2021-0 Yes 25mg [...] 100 mg 04 (two) Medical tablet times [place] daily. amLODIPine 2021-0 Yes 10mg Take 10 mg U nivers (NORVASC) 9-27 by mouth ity of 10 mg 19:28: daily. [place] tablet 04 Medical Branch clonazePAM 2021-0 Yes 1mg Take 1 mg Un matt (KLONOPIN) 9-27 by mouth ity o f 1 mg tablet 19:28: at [place] [address] bedtime. Medical Branch traZODone 2021-0 Yes 50mg Take 50 mg Un matt 100 mg 9-27 by mouth ity of tablet 19:28: at [place] [address] bedtime. Medical Branch hydralAZINE 2021-0 Yes 25mg [...] o f 1 mg tablet 19:28: at [place] [address] bedtime. Medical Branch traZODone 2021-0 Yes 50mg Take 50 mg Un matt 100 mg 9-27 by mouth ity of tablet 19:28: at [place] [address] bedtime. Medical Branch hydralAZINE 2021-0 Yes 25mg [...] o f 1 mg tablet 19:28: at [place] [address] bedtime. Medical Branch traZODone 2021-0 Yes 50mg Take 50 mg Un matt 100 mg 9-27 by mouth ity of tablet 19:28: at [place] [address] bedtime. Medical Branch hydralAZINE 2021-0 Yes 25mg [...] o f 1 mg tablet 19:28: at [place] [address] bedtime. Medical Branch traZODone 2021-0 Yes 50mg Take 50 mg Un matt 100 mg 9- by mouth ity of tablet 19:28: at [place] [address] bedtime. Medical Branch hydralAZINE 2021-0 Yes 25mg [...] o f 1 mg tablet 19:28: at [place] [address] bedtime. Medical Branch traZODone 2022-0 Yes 50mg Take 50 mg Un matt 100 mg 9-27 by mouth ity of tablet 19:28: at [place] [address] bedtime. Medical Branch hydralAZINE 2-0 Yes 25mg [...] o f 1 mg tablet 19:28: at [place] [address] bedtime. Medical Branch traZODone 2-0 Yes 50mg Take 50 mg Un matt 100 mg 9-27 by mouth ity of tablet 19:28: at [place] [address] bedtime. Medical Branch hydralAZINE 2021-0 Yes 25mg [...] o f 1 mg tablet 19:28: at [place] [address] bedtime. Medical Branch traZODone 2022-0 Yes 50mg Take 50 mg Un matt 100 mg 9-27 by mouth ity of tablet 19:28: at [place] [address] bedtime. Medical Branch hydralAZINE 2-0 Yes 25mg [...] o f 1 mg tablet 19:28: at [place] [address] bedtime. Medical Branch traZODone 2-0 Yes 50mg Take 50 mg Un matt 100 mg 9-27 by mouth ity of tablet 19:28: at [place] [address] bedtime. Medical Branch hydralAZINE 2-0 Yes 25mg [...] o f 1 mg tablet 19:28: at [place] [address] bedtime. Medical Branch traZODone 2021-0 Yes 50mg Take 50 mg Un matt 100 mg 9-27 by mouth ity of tablet 19:28: at [place] [address] bedtime. Medical Branch hydralAZINE 2021-0 Yes 25mg [...] o f 1 mg tablet 19:28: at [place] [address] bedtime. Medical Branch traZODone 2021-0 Yes 50mg Take 50 mg Un matt 100 mg 9-27 by mouth ity of tablet 19:28: at [place] [address] bedtime. Medical Branch hydralAZINE 2021-0 Yes 25mg [...] o f 1 mg tablet 19:28: at [place] [address] bedtime. Medical Branch traZODone 2-0 Yes 50mg Take 50 mg Un matt 100 mg 9-27 by mouth ity of tablet 19:28: at [place] [address] bedtime. Medical Branch hydralAZINE 2-0 Yes 25mg [...] o f 1 mg tablet 19:28: at [place] [address] bedtime. Medical Branch traZODone 2021-0 Yes 50mg Take 50 mg Un matt 100 mg 9-27 by mouth ity of tablet 19:28: at [place] [address] bedtime. Medical Branch hydralAZINE 2021-0 Yes 25mg [...] o f 1 mg tablet 19:28: at [place] [address] bedtime. Medical Branch traZODone 2021-0 Yes 50mg Take 50 mg Un matt 100 mg 9-27 by mouth ity of tablet 19:28: at [place] [address] bedtime. Medical Branch hydralAZINE 2021-0 Yes 25mg [...] ity of 10 mg 19:28: daily. [place] tablet 04 Medical Branch clonazePAM 2021-0 Yes 1mg Take 1 mg Un matt (KLONOPIN) 9-27 by mouth ity o f 1 mg tablet 19:28: at [place] [address] bedtime. Medical Branch traZODone 2021-0 Yes 50mg Take 50 mg Un matt 100 mg 9-27 by mouth ity of tablet 19:28: at [place] [address] bedtime. Medical Branch hydralAZINE 2021-0 Yes 25mg [...] o f 1 mg tablet 19:28: at [place] [address] bedtime. Medical Branch traZODone Yes 50mg Take 50 mg Un matt 100 mg 02-16 by mouth ity of tablet 19:28: at [place] [address] bedtime. Medical Branch cefpodoxime 2021- No [id number] 200mg Take 1 Univers 200 mg 02-16 tablet by ity of tablet 00:00: 04:59 mouth in [place] 00 :00 the Medical morning Branch and 1 tablet in the evening. Do all this for 3 days. cefpodoxime 2021- No [id number] 200mg Take 1 Univers 200 mg 02-16 tablet by ity of tablet 00:00: 04:59 mouth in [place] 00 :00 the Medical morning Branch and 1 tablet in the evening. Do all this for 3 days. haloperidol 2021- No 2mg 2 mg, Slow Univers lactate 02-15 IV Push, ity of (HALDOL) 09:00: 09:12 ONCE, 1 [place] injection 2 00 :00 dose, On Medi porfirio mg Mon Branch 02/15/22 at 0400, Routine hydroCHLORO Yes 25mg 25 mg, Univ ers thiazide 9-25 Oral, ity of (ESIDRIX) 14:00: DAILY, [place] capsule 25 00 First dose Med ical mg on [place] 02/14/22 at 0900, Until Discontinu ed, Routine butalbital- Yes 1{tbl} 1 tablet, Univers acetaminoph - Oral, ity of en-caff 18:46: Q6HPRN, [place] (ESGIC) 06 Starting Medical 50-325-40 on Sat [...] 2,000 mg in 17:00: 18:24 Piggyback, [place] NaCl 0.9% 00 :00 Q24H ABX, Medic [...] (MYCOLOG) 19:00: dose on [place] cream 00 [facility] Branch Medical 02/11/22 at Branch 1400, Until Discontinu ed, Routine busPIRone 202-0 Yes 30mg 30 mg, Univer s (BUSPAR) 02-11 Oral, BID, ity o f tablet 30 18:00: First dose [place] mg 00 on [facility] Branch Medical 02/11/22 at Branch 1300, Until Discontinu ed, Routine raltegravir 2021-0 Yes 400mg 400 mg, Un matt (ISENTRESS) 02-11 Oral, BID, it y of tablet 400 18:00: First dose [place] mg 00 on [facility] Branch Medical 02/11/22 at Branch 1300, Until Discontinu ed, JOE metoprolol 2021-0 Yes 100mg 100 mg, Uni vers tartrate 02-11 Oral, BID, ity o f (LOPRESSOR) 18:00: First dose [place] tablet 100 00 on [facility] mg 02/11/22 at Branch 1300, Until Discontinu ed, Routine lisinopriL 2021-0 Yes 40mg 40 mg, Unive rs (PRINIVIL,Z 02-11 Oral, BID, it y of ESTRIL) 18:00: First dose [place] tablet 40 00 on [facility] mg 02/11/22 at Branch 1300, Until Discontinu ed, Routine emtricitabi 2021-0 Yes 1{tbl} 1 tablet[facility] 02-[facility] Oral, ity of r alafen 18:00: DAILY, [place] (DESCOVY) 00 First dose Medi porfirio tablet 1 on [facility] tablet 02/11/22 at 1300, Until Discontinu ed, Routine ipratropium 2021-0 Yes .5mg 0.5 mg, Uni vers (ATROVENT) 02-11 Inhalation ity of 0.02 % 17:57: , MERY, [place] nebulizer 10 Starting Medica l solution on [facility] 0.5 mg 02/11/22 at 1257, Until [...] Medical (after Branch last modificati on) on [facility] 02/11/22 at 1230, Until Discontinu ed, Routine HYDROcodone 2021- No 1{tbl} 1 tablet, Univers -acetaminop 02-11 Oral, ity of hen (NORCO 14:11: 17:37 Q6HPRN, [place] as 5) 5-325 mg 03 :24 Starting Medi porfirio tablet 1 on [facility] tablet 02/11/22 at 0911, Until Tue02/12/22 at 1237, Routine, Pain (scale 7-10) melatonin Yes 3mg 3 mg, Univers (MELATIN) 02-11 Oral, ity of tablet 3 mg 14:08: QHSPRN, [place] 17 Starting Medical on [facility] 02/11/22 at 0908, Until Discontinu ed, Routine, Insomnia acetaminoph 2021- No 1{tbl} 1 tablet, Univers en-codeine 02-11 Oral, ity of (TYLENOL 14:06: 17:37 Q6HPN, [place] #3) 300-30 19 :24 Starting Medic al mg tablet 1 on [facility] tablet 02/11/22 at 0906, Until Tue02/12/22 at 1237, Routine, Pain (scale 4-6) sennosides- Yes 1{tbl} 1 tablet, Univers docusate 02-11 Oral, ity of sodium 14:06: QDAILYPRN, [place] (SENOKOT-S) 09 Starting Medi porfirio 8.6-50 mg on [facility] per tablet 02/11/22 at 1 tablet 0906, Until Discontinu ed, Routine, Constipati on ondansetron Yes 4mg 4 mg, Slow Univers (ZOFRAN 02-11 IV Push, ity of (PF)) 14:05: Q6HPRN, [place] injection 4 59 Starting Medi porfirio mg on [place] Branch 02/11/22 at 0905, Until Discontinu ed, Routine, Nausea and Vomiting (N/V) acetaminoph Yes 650mg 650 mg, Un matt en 02-11 Oral, ity of (TYLENOL) 14:04: Q6HPRN, [place] tablet 650 37 Starting Medic al mg [...] of ) 25 mg 09:10: daily. [place] tablet 54 [facility] amLODIPine 0 Yes 10mg Take 10 mg U nivers (NORVASC) 02-11 by mouth ity of 10 mg 09:10: daily. [place] tablet 54 [facility] Branch piperacilli 2021- No 3.375g [...] of therapy: 72 hours iopamidol 2- No [id number] 60mL 60 mL, Univers (ISOVUE 02-11 Intravenou [...] 00 :00 dose, On Medi porfirio mg [facility] 02/11/22 at 0045, JOE acetaminoph 2021- No 975mg 975 mg, U nivers en 02-11 Oral, ity of (TYLENOL) 05:15: 04:19 ONCE, 1 [place] tablet 975 00 :00 dose, On Medic al mg [facility] 02/11/22 at 0015, JOE emtricitabi 0 Yes [id number] Take one Univers ne-tenofovi 9-12 po daily ity of r alafen 00:00: [place] (DESCOVY) 00 Medical tablet Branch emtricitabi 0 Yes [id number] Take one Univers ne-tenofovi 9-12 po daily ity of r alafen 00:00: [place] (DESCOVY) Medical tablet Branch emtricitabi 0 Yes [id number] Take one Univers ne-tenofovi 9-12 po daily ity of r alafen 00:00: [place] (DESCOVY) 00 Medical tablet Branch emtricitabi 0 Yes [id number] Take one Univers ne-tenofovi 9-12 po daily ity of r alafen 00:00: [place] (DESCOVY) 00 Medical tablet Branch emtricitabi Yes [id number] Take one Univers ne-tenofovi 9-12 po daily ity of r alafen 00:00: [place] (DESCOVY) 00 Medical tablet Branch emtricita Yes [id number] Take one Univers ne-tenofovi 9-12 po daily ity of r alafen 00:00: [place] (DESCOVY) 00 Medical tablet Branch emtricita Yes [id number] Take one Univers ne-tenofovi 9-12 po daily ity of r alafen 00:00: [place] (DESCOVY) 00 Medical tablet Branch emtricita Yes [id number] Take one Univers ne-tenofovi 9-12 po daily ity of r alafen 00:00: [place] (DESCOVY) 00 Medical tablet Branch emtricita Yes [id number] Take one Univers ne-tenofovi 9-12 po daily ity of r alafen 00:00: [place] (DESCOVY) 00 Medical tablet Branch [facility] Yes [id number] Take one Univers ne-tenofovi 9-12 po daily ity of r alafen 00:00: [place] (DESCOVY) 00 Medical tablet [facility] Yes [id number] Take one Univers ne-tenofovi 9-12 po daily ity of r alafen 00:00: [place] (DESCOVY) 00 Medical tablet Branch emtricita Yes [id number] Take one Univers ne-tenofovi 9-12 po daily ity of r alafen 00:00: [place] (DESCOVY) 00 Medical tablet Branch emtricita Yes [id number] Take one Univers ne-tenofovi 9-12 po daily ity of r alafen 00:00: [place] (DESCOVY) 00 Medical tablet Branch emtricita Yes [id number] Take one Univers ne-tenofovi 9-12 po daily ity of r alafen 00:00: [place] (DESCOVY) 00 Medical tablet Branch emtricita Yes [id number] Take one Univers ne-tenofovi 9-12 po daily ity of r alafen 00:00: [place] (DESCOVY) 00 Medical tablet Branch emtricitabi 2021-0 Yes [id number] Take one Univers ne-tenofovi 9-12 po daily ity of r alafen 00:00: [place] (DESCOVY) Medical tablet Branch emtricitabi 2021-0 Yes [id number] Take one Univers ne-tenofovi 9-12 po daily ity of r alafen 00:00: [place] (DESCOVY) Medical tablet Branch naproxen 2021-0 Yes [id number] 500mg Take 1 U nivers (NAPROSYN) 7-24 tablet by ity of 500 mg 00:00: mouth in [place] tablet 00 the Medical morning Branch and 1 tablet in the evening. Take with meals. methocarbam 2021-0 Yes [id number] 500mg Take 1 Univers oL 500 mg 7-24 tablet by ity o f tablet 00:00: mouth 4 [place] [address] [address] [facility]) [facility] times [place] daily. naproxen 2021-0 Yes [id number] 500mg Take 1 U nivers (NAPROSYN) 7-24 tablet by ity of 500 mg 00:00: mouth in [place] tablet 00 the Medical morning Branch and 1 tablet in the evening. Take with meals. methocarbam 2021-0 Yes [id number] 500mg Take 1 Univers oL 500 mg 7-24 tablet by ity o f tablet 00:00: mouth 4 [place] ([facility]) [facility] times [place] daily. naproxen 2021-0 Yes [id number] 500mg Take 1 U nivers (NAPROSYN) 7-24 tablet by ity of 500 mg 00:00: mouth in [place] tablet 00 the Medical morning Branch and 1 tablet in the evening. Take with meals. methocarbam 2021-0 Yes [id number] 500mg Take 1 Univers oL 500 mg 7-24 tablet by ity o f tablet 00:00: mouth 4 [place] ([facility]) [facility] times [place] daily. naproxen 2021-0 2022- No [id number] 500mg Take 1 Univers (NAPROSYN) 7-24 10-14 tablet by ity of 500 mg 00:00: 00:00 mouth in [place] tablet 00 :00 the Medical morning Branch and 1 tablet in the evening. Take with meals. methocarbam 2021-0 2022- No [id number] 500mg Take 1 Univers oL 500 mg 7-24 10-14 tablet by ity of tablet 00:00: 00:00 mouth 4 [place] 00 :00 (four) Medical times Branch daily. naproxen 2021- No [id number] 500mg Take 1 Univers (NAPROSYN) 12-13 tablet by ity of 500 mg 00:00: 00:00 mouth in [place] tablet 00 :00 the Medical morning Branch and 1 tablet in the evening. Take with meals. methocarbam 2021- No [id number] 500mg Take 1 Univers oL 500 mg [...] of mg tablet 09:11: 00:00 (two) [place] 35 :00 times Medical daily. Branch traZODONE 2021- No Take by [facility] ers (DESYREL) 11-20 mouth at ity o f 10 mg/mL 09:10: 00:00 [place]time. [place] oral 28 :00 Medical suspension Branch hydralAZINE Yes 25mg Take 25 mg Univers (APRESOLINE 11-20 by mouth ity of ) 25 mg 08:47: daily. [place] tablet 47 Medical Branch cephALEXin 2021- No [id number] 500mg Take 1 Univers (KEFLEX) 10-24 capsule [...] Indication s: acute pain buPROPion 0 Yes [id number] 150mg Take 1 U nivers XL 4-12 tablet by ity of (WELLBUTRIN 00:00: mouth [place] XL) 150 mg 00 daily. Medical 24 hr Branch tablet busPIRone 2021-0 Yes [id number] 30mg Take 1 Un matt 30 mg 4-12 tablet by ity of tablet 00:00: mouth 2 [place] 00 (two) Medical times Branch daily. SERTraline 2021-0 Yes [id number] 200mg Take 2 Univers 100 mg 4-12 tablets by ity of tablet 00:00: mouth [place] 00 daily. Medical Branch buPROPion 0 Yes [id number] 150mg Take 1 U nivers XL 4-12 tablet by ity of (WELLBUTRIN 00:00: mouth [place] XL) 150 mg 00 daily. Medical 24 hr Branch tablet busPIRone 2021-0 Yes [id number] 30mg Take 1 Un matt 30 mg 4-12 tablet by ity of tablet 00:00: mouth 2 [place] 00 (two) Medical times Branch daily. SERTraline 2021-0 Yes [id number] 200mg Take 2 Univers 100 mg 4-12 tablets by ity of tablet 00:00: mouth [place] 00 daily. Medical Branch buPROPion 2021-0 Yes [id number] 150mg Take 1 U nivers XL 4-12 tablet by ity of (WELLBUTRIN 00:00: mouth [place] XL) 150 mg 00 daily. Medical 24 hr Branch tablet busPIRone 2021-0 Yes [id number] 30mg Take 1 Un matt 30 mg 4-12 tablet by ity of tablet 00:00: mouth 2 [place] 00 (two) Medical times Branch daily. SERTraline 2021-0 Yes [id number] 200mg Take 2 Univers 100 mg 4-12 tablets by ity of tablet 00:00: mouth [place] 00 daily. Medical Branch buPROPion 2021-0 Yes [id number] 150mg Take 1 U nivers XL 4-12 tablet by ity of (WELLBUTRIN 00:00: mouth [place] XL) 150 mg 00 daily. Medical 24 hr Branch tablet busPIRone 2021-0 Yes [id number] 30mg Take 1 Un matt 30 mg 4-12 tablet by ity of tablet 00:00: mouth 2 [place] 00 (two) Medical times Branch daily. SERTraline 0 Yes [id number] 200mg Take 2 Univers 100 mg 4-12 tablets by ity of tablet 00:00: mouth [place] 00 daily. Medical Branch buPROPion 0 Yes [id number] 150mg Take 1 U nivers XL 4-12 tablet by ity of (WELLBUTRIN 00:00: mouth [place] XL) 150 mg 00 daily. Medical 24 hr Branch tablet busPIRone 2021-0 Yes [id number] 30mg Take 1 Un matt 30 mg 4-12 tablet by ity of tablet 00:00: mouth 2 (two) Medical times Branch daily. SERTraline 0 Yes [id number] 200mg Take 2 Univers 100 mg 4-12 tablets by ity of tablet 00:00: mouth [place] 00 daily. Medical Branch buPROPion 0 Yes [id number] 150mg Take 1 U nivers XL 4-12 tablet by ity of (WELLBUTRIN 00:00: mouth [place] XL) 150 mg 00 daily. Medical 24 hr Branch tablet busPIRone 2021-0 Yes [id number] 30mg Take 1 Un matt 30 mg 4-12 tablet by ity of tablet 00:00: mouth 2 00 (two) Medical times Branch daily. SERTraline 2021-0 Yes [id number] 200mg Take 2 Univers 100 mg 4-12 tablets by ity of tablet 00:00: mouth [place] 00 daily. Medical Branch buPROPion 2021-0 Yes [id number] 150mg Take 1 U nivers XL 4-12 tablet by ity of (WELLBUTRIN 00:00: mouth [place] XL) 150 mg 00 daily. Medical 24 hr Branch tablet busPIRone 2021-0 Yes [id number] 30mg Take 1 Un matt 30 mg 4-12 tablet by ity of tablet 00:00: mouth 2 00 (two) Medical times Branch daily. SERTraline 2021-0 Yes [id number] 200mg Take 2 Univers 100 mg 4-12 tablets by ity of tablet 00:00: mouth [place] 00 daily. Medical Branch buPROPion 2021-0 Yes [id number] 150mg Take 1 U nivers XL 4-12 tablet by ity of (WELLBUTRIN 00:00: mouth [place] XL) 150 mg 00 daily. Medical 24 hr Branch tablet busPIRone 2021-0 Yes [id number] 30mg Take 1 Un matt 30 mg 4-12 tablet by ity of tablet 00:00: mouth 2 [place] 00 (two) Medical times Branch daily. SERTraline 2021-0 Yes [id number] 200mg Take 2 Univers 100 mg 4-12 tablets by ity of tablet 00:00: mouth [place] 00 daily. Medical Branch buPROPion 2021-0 Yes [id number] 150mg Take 1 U nivers XL 4-12 tablet by ity of (WELLBUTRIN 00:00: mouth [place] XL) 150 mg 00 daily. Medical 24 hr Branch tablet busPIRone 2021-0 Yes [id number] 30mg Take 1 Un matt 30 mg 4-12 tablet by ity of tablet 00:00: mouth 2 [place] (two) Medical times Branch daily. SERTraline 2021-0 Yes [id number] 200mg Take 2 Univers 100 mg 4-12 tablets by ity of tablet 00:00: mouth [place] 00 daily. Medical Branch buPROPion 2021-0 Yes [id number] 150mg Take 1 U nivers XL 4-12 tablet by ity of (WELLBUTRIN 00:00: mouth [place] XL) 150 mg 00 daily. Medical 24 hr Branch tablet busPIRone 2021-0 Yes [id number] 30mg Take 1 Un matt 30 mg 4-12 tablet by ity of tablet 00:00: mouth 2 [place] 00 (two) Medical times Branch daily. SERTraline 2021-0 Yes [id number] 200mg Take 2 Univers 100 mg 4-12 tablets by ity of tablet 00:00: mouth [place] 00 daily. Medical Branch buPROPion 2021-0 Yes [id number] 150mg Take 1 U nivers XL 4-12 tablet by ity of (WELLBUTRIN 00:00: mouth [place] XL) 150 mg 00 daily. Medical 24 hr Branch tablet busPIRone 2021-0 Yes [id number] 30mg Take 1 Un matt 30 mg 4-12 tablet by ity of tablet 00:00: mouth 2 [place] 00 (two) Medical times Branch daily. SERTraline 2021-0 Yes [id number] 200mg Take 2 Univers 100 mg 4-12 tablets by ity of tablet 00:00: mouth [place] 00 daily. Medical Branch buPROPion 2021-0 Yes [id number] 150mg Take 1 U nivers XL 4-12 tablet by ity of (WELLBUTRIN 00:00: mouth [place] XL) 150 mg 00 daily. Medical 24 hr Branch tablet busPIRone 2021-0 Yes [id number] 30mg Take 1 Un mtat 30 mg 4-12 tablet by ity of tablet 00:00: mouth 2 [place] 00 (two) Medical times Branch daily. SERTraline 2021-0 Yes [id number] 200mg Take 2 Univers 100 mg 4-12 tablets by ity of tablet 00:00: mouth [place] 00 daily. Medical Branch buPROPion 2021-0 Yes [id number] 150mg Take 1 U nivers XL 4-12 tablet by ity of (WELLBUTRIN 00:00: mouth [place] XL) 150 mg 00 daily. Medical 24 hr Branch tablet busPIRone 2021-0 Yes [id number] 30mg Take 1 Un matt 30 mg 4-12 tablet by ity of tablet 00:00: mouth 2 00 (two) Medical times Branch daily. SERTraline 2021-0 Yes [id number] 200mg Take 2 Univers 100 mg 4-12 tablets by ity of tablet 00:00: mouth [place] 00 daily. Medical Branch buPROPion 2021-0 Yes [id number] 150mg Take 1 U nivers XL 4-12 tablet by ity of (WELLBUTRIN 00:00: mouth [place] XL) 150 mg 00 daily. Medical 24 hr Branch tablet busPIRone 2021-0 Yes [id number] 30mg Take 1 Un matt 30 mg 4-12 tablet by ity of tablet 00:00: mouth 2 [place] 00 (two) Medical times Branch daily. SERTraline 2021-0 Yes [id number] 200mg Take 2 Univers 100 mg 4-12 tablets by ity of tablet 00:00: mouth [place] 00 daily. Medical Branch buPROPion 2021-0 Yes [id number] 150mg Take 1 U nivers XL 4-12 tablet by ity of (WELLBUTRIN 00:00: mouth [place] XL) 150 mg 00 daily. Medical 24 hr Branch tablet busPIRone 2021-0 Yes [id number] 30mg Take 1 Un matt 30 mg 4-12 tablet by ity of tablet 00:00: mouth 2 [place] 00 (two) Medical times Branch daily. SERTraline 2021-0 Yes [id number] 200mg Take 2 Univers 100 mg 4-12 tablets by ity of tablet 00:00: mouth [place] 00 daily. Medical Branch buPROPion 2021-0 Yes [id number] 150mg Take 1 U nivers XL 4-12 tablet by ity of (WELLBUTRIN 00:00: mouth [place] XL) 150 mg 00 daily. Medical 24 hr Branch tablet busPIRone 2021-0 Yes [id number] 30mg Take 1 Un matt 30 mg 4-12 tablet by ity of tablet 00:00: mouth 2 [place] 00 (two) Medical times Branch daily. SERTraline 0 Yes [id number] 200mg Take 2 Univers 100 mg 4-12 tablets by ity of tablet 00:00: mouth [place] 00 daily. Medical Branch buPROPion 2021-0 Yes [id number] 150mg Take 1 U nivers XL 4-12 tablet by ity of (WELLBUTRIN 00:00: mouth [place] XL) 150 mg 00 daily. Medical 24 hr Branch tablet busPIRone 2021-0 Yes [id number] 30mg Take 1 Un matt 30 mg 4-12 tablet by ity of tablet 00:00: mouth 2 [place] 00 (two) Medical times Branch daily. SERTraline 2021-0 Yes [id number] 200mg Take 2 Univers 100 mg 4-12 tablets by ity of tablet 00:00: mouth [place] 00 daily. Medical Branch buPROPion 2021-0 Yes [id number] 150mg Take 1 U nivers XL 4-12 tablet by ity of (WELLBUTRIN 00:00: mouth [place] XL) 150 mg 00 daily. Medical 24 hr Branch tablet busPIRone 2021-0 Yes [id number] 30mg Take 1 Un matt 30 mg 4-12 tablet by ity of tablet 00:00: mouth 2 [place] 00 (two) Medical times Branch daily. SERTraline 2021-0 Yes [id number] 200mg Take 2 Univers 100 mg 4-12 tablets by ity of tablet 00:00: mouth [place] 00 daily. Medical Branch raltegravir 2022-0 Yes [id number] 400mg Take 1 Univers (ISENTRESS) 3-28 tablet by ity of 400 mg 00:00: mouth 2 [place] tablet 00 (two) Medical times Branch daily. raltegravir 2-0 Yes [id number] 400mg Take 1 Univers (ISENTRESS) 3-28 tablet by ity of 400 mg 00:00: mouth 2 [place] tablet 00 (two) Medical times Branch daily. raltegravir 2-0 Yes [id number] 400mg Take 1 Univers (ISENTRESS) 3-28 tablet by ity of 400 mg 00:00: mouth 2 [place] tablet 00 (two) Medical times Branch daily. raltegravir 2021-0 Yes [id number] 400mg Take 1 Univers (ISENTRESS) 3-28 tablet by ity of 400 mg 00:00: mouth 2 [place] tablet 00 (two) Medical times Branch daily. raltegravir 2021-0 Yes [id number] 400mg Take 1 Univers (ISENTRESS) 3-28 tablet by ity of 400 mg 00:00: mouth 2 [place] tablet 00 (two) Medical times Branch daily. raltegravir 2021-0 Yes [id number] 400mg Take 1 Univers (ISENTRESS) 3-28 tablet by ity of 400 mg 00:00: mouth 2 [place] tablet 00 (two) Medical times Branch daily. raltegravir 2021-0 Yes [id number] 400mg Take 1 Univers (ISENTRESS) 3-28 tablet by ity of 400 mg 00:00: mouth 2 [place] tablet 00 (two) Medical times Branch daily. raltegravir 2-0 Yes [id number] 400mg Take 1 Univers (ISENTRESS) 3-28 tablet by ity of 400 mg 00:00: mouth 2 [place] tablet 00 (two) Medical times Branch daily. raltegravir 2-0 Yes [id number] 400mg Take 1 Univers (ISENTRESS) 3-28 tablet by ity of 400 mg 00:00: mouth 2 [place] tablet 00 (two) Medical times Branch daily. raltegravir 2-0 Yes [id number] 400mg Take 1 Univers (ISENTRESS) 3-28 tablet by ity of 400 mg 00:00: mouth 2 [place] tablet 00 (two) Medical times Branch daily. raltegravir 2-0 Yes [id number] 400mg Take 1 Univers (ISENTRESS) 3-28 tablet by ity of 400 mg 00:00: mouth 2 [place] tablet 00 (two) Medical times Branch daily. raltegravir 2021-0 Yes [id number] 400mg Take 1 Univers (ISENTRESS) 3-28 tablet by ity of 400 mg 00:00: mouth 2 [place] tablet 00 (two) Medical times Branch daily. raltegravir 2021-0 Yes [id number] 400mg Take 1 Univers (ISENTRESS) 3-28 tablet by ity of 400 mg 00:00: mouth 2 [place] tablet 00 (two) Medical times Branch daily. raltegravir 2021-0 Yes [id number] 400mg Take 1 Univers (ISENTRESS) 3-28 tablet by ity of 400 mg 00:00: mouth 2 [place] tablet 00 (two) Medical times Branch daily. raltegravir 2021-0 Yes [id number] 400mg Take 1 Univers (ISENTRESS) 3-28 tablet by ity of 400 mg 00:00: mouth 2 [place] tablet 00 (two) Medical times Branch daily. raltegravir 2021-0 Yes [id number] 400mg Take 1 Univers (ISENTRESS) 3-28 tablet by ity of 400 mg 00:00: mouth 2 [place] tablet 00 (two) Medical times Branch daily. raltegravir 2021-0 Yes [id number] 400mg Take 1 Univers (ISENTRESS) 3-28 tablet by ity of 400 mg 00:00: mouth 2 [place] tablet 00 (two) Medical times Branch daily. raltegravir 2021-0 Yes [id number] 400mg Take 1 Univers (ISENTRESS) 3-28 tablet by ity of 400 mg 00:00: mouth 2 [place] tablet 00 (two) Medical times Branch daily. LORazepam 1 2021-0 2021- No [id number] 1mg Take 1 Univers mg tablet 3-21 [...] times a tablet day. emtricitabi 202- No [id number] Take one Univers ne-tenofovi -20 09-12 po daily ity of r alafen 00:00: 00:00 [place] (DESCOVY) 00 :00 Medical tablet Branch metoprolol Yes [id number] Take 1 [place] tartrate 7-26 tablet Health (Lopressor) 00:00: (100 mg 100 MG 00 total) by tablet mouth 2 (two) times a day AND 0.5 tablets (50 mg total) every night. metoprolol Yes [id number] Take 1 [place] tartrate 7-26 tablet Health [...] (affected area in groin) hydrALAZINE Yes 50mg Q.[id number] Take 50 mg [facility] (APRESOLINE 7-19 [id number] mouth [facility] ) 50 MG [...] (affected area in groin) hydrALAZINE Yes 50mg Q.[id number] Take 50 mg [facility] (APRESOLINE 7-[id number] mouth [facility] ) 50 MG [...] (affected area in groin) hydrALAZINE Yes 50mg Q.[id number] Take 50 mg [facility] (APRESOLINE 7-[id number] mouth [facility] ) 50 MG [...] area in groin) hydrALAZINE 0 Yes 50mg Q.[id number] Take 50 mg [facility] (APRESOLINE 7-[id number] mouth [facility] ) 50 MG [...] area in groin) hydrALAZINE 0 Yes 50mg Q.[id number] Take 50 mg [facility] (APRESOLINE 7-[id number] mouth [facility] [address] ) 50 MG [...] (affected area in groin) hydrALAZINE Yes 50mg Q.[id number] Take 50 mg [facility] (APRESOLINE 7-[id number] mouth [facility] [address] ) 50 MG [...] (affected area in groin) hydrALAZINE Yes 50mg Q.[id number] Take 50 mg [facility] (APRESOLINE 7-[id number] mouth [facility] [address] ) 50 MG [...] area in groin) hydrALAZINE 0 Yes 50mg Q.[id number] Take 50 mg [facility] (APRESOLINE 7-[id number] mouth [facility] [address] ) 50 MG [...] (affected area in groin) hydrALAZINE Yes 50mg Q.[id number] Take 50 mg [facility] (APRESOLINE 7-[id number] mouth [facility] ) 50 MG [...] (affected area in groin) hydrALAZINE Yes 50mg Q.[id number] Take 50 mg [facility] (APRESOLINE 7-[id number] mouth [facility] [address] ) 50 MG [...] area in groin) hydrALAZINE 0 Yes 50mg Q.[id number] Take 50 mg [facility] (APRESOLINE 7-[id number] mouth [facility] [address] ) 50 MG [...] (affected area in groin) hydrALAZINE Yes 50mg Q.[id number] Take 50 mg [facility] (APRESOLINE 7-[id number] mouth [facility] ) 50 MG [...] (affected area in groin) hydrALAZINE Yes 50mg Q.[id number] Take 50 mg [facility] (APRESOLINE 7-[id number] mouth [facility] [address] ) 50 MG [...] (affected area in groin) hydrALAZINE Yes 50mg Q.[id number] Take 50 mg [facility] (APRESOLINE 7-[id number] [address] mouth [facility] ) 50 MG [...] area in groin) hydrALAZINE 0 Yes 50mg Q.[id number] Take 50 mg [facility] (APRESOLINE 7-[id number] mouth [address] ) 50 MG [...] (affected area in groin) hydrALAZINE Yes 50mg Q.[id number] Take 50 mg [facility] (APRESOLINE 7-[id number] mouth [address] ) 50 MG [...] area in groin) hydrALAZINE 0 Yes 50mg Q.[id number] Take 50 mg [facility] (APRESOLINE 7-[id number] mouth [facility] ) 50 MG [...] area in groin) hydrALAZINE 0 Yes 50mg Q.[id number] Take 50 mg [facility] (APRESOLINE 7-[id number] mouth [address] ) 50 MG [...] (affected area in groin) hydrALAZINE Yes 50mg Q.[id number] Take 50 mg [facility] (APRESOLINE 7-[id number] mouth [address] ) 50 MG [...] area in groin) hydrALAZINE 0 Yes 50mg Q.[id number] Take 50 mg [facility] (APRESOLINE 7-[id number] mouth [address] ) 50 MG [...] area in groin) hydrALAZINE 0 Yes 50mg Q.[id number] Take 50 mg [facility] (APRESOLINE 7-[id number] mouth [address] ) 50 MG [...] (affected area in groin) hydrALAZINE Yes 50mg Q.[id number] Take 50 mg [facility] (APRESOLINE 7-[id number] mouth [address] ) 50 MG [...] (affected area in groin) hydrALAZINE Yes 50mg Q.[id number] Take 50 mg [facility] (APRESOLINE 7-[id number] mouth [address] ) 50 MG [...] area in groin) hydrALAZINE 0 Yes 50mg Q.[id number] Take 50 mg [facility] (APRESOLINE 7-[id number] mouth [address] ) 50 MG [...] (affected area in groin) hydrALAZINE Yes 50mg Q.[id number] Take 50 mg [facility] (APRESOLINE 7-[id number] mouth [address] ) 50 MG [...] (affected area in groin) hydrALAZINE Yes 50mg Q.[id number] Take 50 mg [facility] (APRESOLINE 7-[id number] mouth [address] ) 50 MG [...] area in groin) hydrALAZINE 0 Yes 50mg Q.[id number] Take 50 mg [facility] (APRESOLINE 7-[id number] mouth [address] ) 50 MG [...] (affected area in groin) hydrALAZINE Yes 50mg Q.[id number] Take 50 mg [facility] (APRESOLINE 7-[id number] mouth [address] ) 50 MG [...] (affected area in groin) hydrALAZINE Yes 50mg Q.[id number] Take 50 mg [facility] (APRESOLINE 7-[id number] [address] mouth [facility] [address] ) 50 MG [...] area in groin) hydrALAZINE 0 Yes 50mg Q.[id number] Take 50 mg [facility] (APRESOLINE 7-[id number] mouth [address] ) 50 MG [...] [facility]ospita tablet 25 l nystatin-tr 2020-0 Yes [id number] Apply to [facility] iainolone 7-06 area(s) 3 ity of cream 00:00: (three) [place] 00 times Medical daily. Branch nystatin-tr 2020-0 Yes [id number] Apply to [facility] iainolone 7-06 area(s) 3 ity of cream 00:00: (three) [place] 00 times Medical daily. Branch nystatin-tr 2020-0 Yes [id number] Apply to [facility] iainolone 7-06 area(s) 3 ity of cream 00:00: (three) [place] 00 times Medical daily. Branch nystatin-tr 2021-0 Yes [id number] Apply to [facility] iamcinolone 7-06 area(s) 3 ity of cream 00:00: (three) [place] 00 times Medical daily. Branch nystatin-tr 2021-0 Yes [id number] Apply to [facility] iamcinolone 7-06 area(s) 3 ity of cream 00:00: (three) [place] 00 times Medical daily. Branch nystatin-tr 2021-0 Yes [id number] Apply to [facility] iamcinolone 7-06 area(s) 3 ity of cream 00:00: (three) [place] 00 times Medical daily. Branch nystatin-tr 2021-0 Yes [id number] Apply to [facility] iamcinolone 7-06 area(s) 3 ity of cream 00:00: (three) [place] 00 times Medical daily. Branch nystatin-tr 2021-0 Yes [id number] Apply to [facility] iamcinolone 7-06 area(s) 3 ity of cream 00:00: (three) [place] 00 times Medical daily. Branch nystatin-tr 2021-0 Yes [id number] Apply to [facility] iamcinolone 7-06 area(s) 3 ity of cream 00:00: (three) [place] 00 times Medical daily. Branch nystatin-tr 2021-0 Yes [id number] Apply to [facility] iamcinolone 7-06 area(s) 3 ity of cream 00:00: (three) [place] 00 times Medical daily. Branch nystatin-tr 2021-0 Yes [id number] Apply to [facility] iamcinolone 7-06 area(s) 3 ity of cream 00:00: (three) [place] 00 times Medical daily. Branch nystatin-tr 2021-0 Yes [id number] Apply to [facility] iamcinolone 7-06 area(s) 3 ity of cream 00:00: (three) [place] 00 times Medical daily. Branch nystatin-tr 2021-0 Yes [id number] Apply to [facility] iamcinolone 7-06 area(s) 3 ity of cream 00:00: (three) [place] 00 times Medical daily. Branch nystatin-tr 2021-0 Yes [id number] Apply to [facility] iamcinolone 7-06 area(s) 3 ity of cream 00:00: (three) [place] 00 times Medical daily. Branch nystatin-tr 2020-0 Yes [id number] Apply to [facility] iainolone 7-06 area(s) 3 ity of cream 00:00: (three) [place] 00 times Medical daily. Branch nystatin-tr 2020-0 Yes [id number] Apply to [facility] iainolone 7-06 area(s) 3 ity of cream 00:00: (three) [place] 00 times Medical daily. Branch nystatin-tr 2020-0 Yes [id number] Apply to [facility] iainolone 7-06 area(s) 3 ity of cream 00:00: (three) [place] 00 times Medical daily. Branch nystatin-tr 2020-0 Yes [id number] [facility] ity of cream 00:00: (three) [place] 00 times Medical daily. Branch budesonide- 0 2021- No 1{puff} QD Inhale 1 [facility] formoteroL 6-25 06-[address] (SYMBICORT) 14:37: 00:00 morning. H ospita 160-4.5 02 :00 l mcg/actuati on inhaler hydrALAZINE Yes [id number] 50mg [id number] Take 1 [place] (Apresoline 6-11 [id number] tablet (50 Health ) 50 MG 00:00: 3D mg total) tablet 00 by mouth 3 (three) times a day. hydrALAZINE Yes [id number] 50mg Q.[id number] Take 1 [place] (Apresoline 6-11 [id number] tablet (50 Health ) 50 MG 00:00: [...] % 00:00: ointment 00 nystatin 2020- No [id number] Q.25D Take 5 mL [facility] (MYCOSTATIN 10-06 [...] ia 4-10 (Same as: l 14:00: Zoloft) [place] Sertraline No Notes: Memor ia 4-10 (Same as: l 14:00: Zoloft) [place] 00 pantoprazol No Notes: Caesar lisa e 4-10 Tablet l 14:00: should not [place] 00 be chewed or crushed. (Same as: [...] ia 4-10 (Same as: l 14:00: Zoloft) [place] 00 pantoprazol No Notes: Caesar lisa e 4-10 Tablet l 14:00: should not [place] 00 be chewed or crushed. (Same as: Protonix) Amiodarone No Notes: Memor ia 4-10 (Same as: l 14:00: Cordarone) [place] Amlodipine No Notes: Memor ia 4-10 (Same as: l 14:00: Norvasc) [place] 00 emtricitabi No Notes: Caesar lisa ne 200 MG / 4-10 (Same as: l tenofovir 14:00: Descovy) Herm ariel alafenamide 00 Non-formul 25 MG Oral nancy Tablet [Descovy] Sertraline No Notes: Memor ia 4-10 (Same as: l 14:00: Zoloft) [place] pantoprazol No Notes: Caesar lisa e 4-10 Tablet l 14:00: should not [place] 00 be chewed or crushed. (Same as: Protonix) Amiodarone No Notes: Memor ia 4-10 (Same as: l 14:00: Cordarone) [place] Amlodipine No Notes: Memor ia 4-10 (Same as: l 14:00: Norvasc) [place] emtricitabi No Notes: Caesar lisa ne 200 MG / 4-10 (Same as: l tenofovir 14:00: Descovy) Herm ariel alafenamide 00 Non-formul 25 MG Oral nancy Tablet [Descovy] Sertraline No Notes: Memor ia 4-10 (Same as: l 14:00: Zoloft) [place] pantoprazol No Notes: Caesar lisa e 4-10 Tablet l 14:00: should not [place] 00 be chewed or crushed. (Same as: Protonix) Amiodarone No Notes: Memor ia 4-10 (Same as: l 14:00: Cordarone) [place] Amlodipine No Notes: Memor ia 4-10 (Same as: l 14:00: Norvasc) [place] emtricitabi No Notes: Caesar lisa ne 200 MG / 4-10 (Same as: l tenofovir 14:00: Descovy) Herm ariel alafenamide 00 Non-formul 25 MG Oral nancy Tablet [Descovy] Sertraline No Notes: Memor ia 4-10 (Same as: l 14:00: Zoloft) [place] pantoprazol No Notes: Caesar lisa e 4-10 Tablet l 14:00: should not [place] 00 be chewed or crushed. (Same as: Protonix) Amiodarone No Notes: Memor ia 4-10 (Same as: l 14:00: Cordarone) [place] Amlodipine No Notes: Memor ia 4-10 (Same as: l 14:00: Norvasc) [place] emtricitabi No Notes: Caesar lisa ne 200 [...] ia 4-10 (Same as: l 14:00: Cordarone) [place] 00 Sucralfate No Notes: May M emoria 4-10 interfere l 02:00: w/enteral [place] 00 feeds - Take 1 hr before or 2 hr after antacids, dairy pdt, meals & minerals - On empty stomach. For patients unable to swallow tablet, dissolve in 10mL - 30mL of water or juice and stir before giving. (Same As: Carafate) Saline No Notes: Memoria Flush 0.9% 4-10 (Same as: l 02:00: BD [place] Posiflush) Eliquis No Notes: Memoria 4-10 Same as: l 02:00: Eliquis [place] 00 Hydralazine No Notes: Caesar lisa Hydrochlori [...] M emoria 4-10 interfere l 02:00: w/enteral [place] 00 feeds - Take 1 hr before [...] Memoria 4-10 Same as: l 02:00: Eliquis [place] 00 Hydralazine No Notes: Caesar lisa Hydrochlori [...] l de 50 MG 02:00: Apresoline Her imtchell Oral Tablet 00 ) May interfere w/enteral [...] 0.9% 4-10 (Same as: l 02:00: BD [place] 00 Posiflush) Eliquis No Notes: Memoria 4-10 Same as: l 02:00: Eliquis [place] Hydralazine No Notes: Caesar lisa Hydrochlori 4-10 [...] 0.9% 4-10 (Same as: l 02:00: BD [place] 00 Posiflush) Eliquis No Notes: Memoria 4-10 Same as: l 02:00: Eliquis Marty Hydralazine No Notes: Caesar lisa Hydrochlori 4-10 (Same as: l de 50 MG 02:00: Apresoline Her mitchell Oral Tablet 00 ) May interfere w/enteral feedings Take With Food Sucralfate No Notes: May M emoria 4-10 interfere l 02:00: w/enteral [place] 00 feeds - Take 1 hr before or 2 hr after antacids, dairy pdt, meals & minerals - On empty stomach. For patients unable to swallow tablet, dissolve in 10mL - 30mL of water or juice and stir before giving. (Same As: Carafate) Saline No Notes: Memoria Flush 0.9% 4-10 (Same as: l 02:00: BD [place] 00 Posiflush) Eliquis No Notes: Memoria 4-10 Same as: l 02:00: Eliquis Hydralazine No Notes: Caesar lisa Hydrochlori 4-10 (Same as: l de 50 MG 02:00: Apresoline Her mitchell Oral Tablet ) May interfere w/enteral feedings Take With Food acetaminoph No Notes: Do M emoria en-codeine 4-10 not exceed l #3 00:12: 4gm/day of [place] acetaminop hen. (Same as: Tylenol with Codeine [...] not exceed l #3 00:12: 4gm/day of [place] acetaminop hen. (Same as: Tylenol with Codeine [...] 4-09 (Same As: l 22:00: BuSpar) Lisinopril 2021-0 [...] oria -09 tab, l 22:00: Route: PO, [place] 00 Drug form: TAB, BID, Dosing Weight [...] oria 4-09 tab, l 22:00: Route: PO, [place] 00 Drug form: TAB, BID, Dosing Weight [...] 4-09 tab, l Tablet 22:00: Route: POSkylar [ISENTRESS] Drug form: TAB, BID, Dosing Weight 97.273, kg, Start date: 08/29/20 17:00:00 CDT, Duration: 30 day, Stop date: 09/28/20 9:00:00 CDT, 0 Buspirone 1-0 No Notes: Memori a 08-29 (Same As: l 22:00: BuSpar) Lisinopril 1-0 No 40 mg, 1 Mem oria 4-09 tab, l 22:00: Route: PO, [place] 00 Drug form: TAB, BID, Dosing Weight [...] tartrate 4-09 tab, l 22:00: Route: PO, [place] 00 Drug form: TAB, BID, Dosing Weight [...] Notes: Memoria 4-09 (Same l 17:07: as:MORPhin [place] 00 e Sulfate) Morphine No Notes: Memoria 4-09 (Same l 17:07: as:MORPhin [place] 00 e Sulfate) Morphine No Notes: Memoria 4-09 (Same l 17:07: as:MORPhin [place] 00 e Sulfate) Morphine No Notes: Memoria 4-09 (Same l 17:07: as:MORPhin [place] 00 e Sulfate) Morphine No Notes: Memoria [...] tab, PO, l oral 15:27: Daily, # [place] enteric 00 30 tab, 0 coated Refill(s), tablet Pharmacy: [facility] 149, 162.56, cm, 08/29/20 5:30:00 CDT, Height, 97.273, kg, 08/29/20 5:30:00 CDT, Weight pantoprazol 0 Yes 40 mg = 1 M emoria e 40 mg 4-09 tab, PO, l oral 15:27: Daily, # [place] enteric 00 30 tab, 0 coated Refill(s), tablet Pharmacy: [facility] 149, 162.56, cm, 08/29/20 5:30:00 CDT, Height, 97.273, kg, 08/29/20 5:30:00 CDT, Weight pantoprazol 2021-0 Yes 40 mg = 1 M emoria e 40 mg 4-09 tab, PO, l oral 15:27: Daily, # [place] enteric 00 30 tab, 0 coated Refill(s), tablet Pharmacy: [facility] 149, 162.56, cm, 08/29/20 5:30:00 CDT, Height, 97.273, kg, 08/29/20 5:30:00 CDT, Weight pantoprazol 2021-0 Yes 40 mg = 1 M emoria e 40 mg 4-09 tab, PO, l oral 15:27: Daily, # Marty enteric 00 30 tab, 0 coated Refill(s), tablet Pharmacy: [facility] 149, 162.56, cm, 08/29/20 5:30:00 CDT, Height, 97.273, kg, 08/29/20 5:30:00 CDT, Weight pantoprazol 2021-0 Yes 40 mg = 1 M emoria e 40 mg 4-09 tab, PO, l oral 15:27: Daily, # [place] enteric 00 30 tab, 0 coated Refill(s), tablet Pharmacy: [facility] 149, 162.56, cm, 08/29/20 5:30:00 CDT, Height, 97.273, kg, 08/29/20 5:30:00 CDT, Weight pantoprazol 2021-0 Yes 40 mg = 1 M emoria e 40 mg 4-09 tab, PO, l oral 15:27: Daily, # [place] enteric 00 30 tab, 0 coated Refill(s), tablet Pharmacy: [facility] 149, 162.56, cm, 08/29/20 5:30:00 CDT, Height, 97.273, kg, 08/29/20 5:30:00 CDT, Weight pantoprazol 2021-0 Yes 40 mg = 1 M emoria e 40 mg 4-09 tab, PO, l oral 15:27: Daily, # [place] enteric 00 30 tab, 0 coated Refill(s), tablet Pharmacy: [facility] 149, 162.56, cm, 08/29/20 5:30:00 CDT, Height, 97.273, kg, 08/29/20 5:30:00 CDT, Weight pantoprazol 2020-0 No 40 mg = 1 M emoria e 40 mg 4-09 tab, PO, l oral 15:26: Daily, # [place] enteric 00 30 tab, 0 coated Refill(s) tablet sucralfate 2020-0 Yes 1 gm = 1 Mem oria 1 g oral 4-09 tab, PO, l tablet 15:26: Q12H, # 28 Skylar nn 00 tab, 0 Refill(s), Pharmacy: [place] [id number], 162.56, cm, 08/29/20 5:30:00 CDT, Height, 97.273, [...] Skylar nn 00 tab, 0 Refill(s), Pharmacy: [place] [address], 162.56, cm, 08/29/20 5:30:00 CDT, Height, 97.273, [...] Skylar nn 00 tab, 0 Refill(s), Pharmacy: [facility] 149, 162.56, cm, 08/29/20 5:30:00 [...] Skylar nn 00 tab, 0 Refill(s), Pharmacy: [facility] 149, 162.56, cm, 08/29/20 5:30:00 [...] Skylar nn 00 tab, 0 Refill(s), Pharmacy: [facility] 149, 162.56, cm, 08/29/20 5:30:00 CDT, Height, 97.273, kg, 08/29/20 5:30:00 CDT, Weight pantoprazol 2020-0 No 40 mg = 1 M emoria e 40 mg 4-09 tab, PO, l oral 15:26: Daily, # [place] enteric 00 30 tab, 0 coated Refill(s) tablet sucralfate 2020-0 Yes 1 gm = 1 Mem oria 1 g oral 4-09 tab, PO, l tablet 15:26: Q12H, # 28 Skylar nn 00 tab, 0 Refill(s), Pharmacy: [facility] 149, 162.56, cm, 08/29/20 5:30:00 [...] nn 00 tab, 0 Refill(s), [place] [facility], 162.56, [...] a 4-09 (Same as: l 15:25: Ativan) [place] Saline No Notes: Memoria Flush 0.9% 4-09 (Same as: l 15:25: BD [place] 00 Posiflush) Saline No Notes: Memoria Flush 0.9% 4-09 (Same as: l 15:25: BD [place] 00 Posiflush) Lorazepam No Notes: Memori a 4-09 (Same as: l 15:25: Ativan) [place] 00 Lorazepam No Notes: Memori a 4-09 (Same as: l 15:25: Ativan) [place] Saline No Notes: Memoria Flush 0.9% 4-09 (Same as: l 15:25: BD [place] 00 Posiflush) Lorazepam No Notes: Memori a 4-09 (Same as: l 15:25: Ativan) [place] 00 Saline No Notes: Memoria Flush 0.9% 4-09 (Same as: l 15:25: BD [place] 00 Posiflush) Lorazepam No Notes: Memori a 4-09 (Same as: l 15:25: Ativan) [place] Saline No Notes: Memoria Flush 0.9% 4-09 (Same as: l 15:25: BD [place] 00 Posiflush) Lorazepam No Notes: Memori a 08-29 (Same as: l 15:25: Ativan) Isuprel HCl No Route: IV, Memoria (ANES) 0.2 08-29 Drug form: l mg + 15:00: INJ, [place] 00 Dosing Weight 97.3, kg, Start date: [...] 08-29 Drug form: l 14:18: INJ, ONCE, [place] Stop date: 08/29/20 9:18:00 CDT heparin 0 No Route: IV, Caesar lisa (ANES) 08-29 Drug form: l 14:18: INJ, ONCE, [place] 00 Stop date: 08/29/20 9:18:00 CDT heparin 0 No Route: IV, Caesar lisa (ANES) 08-29 Drug form: l 14:18: INJ, ONCE, [place] 00 Stop date: 08/29/20 9:18:00 CDT Labetalol 0 No 10 mg, Memori a 08-29 Route: l 14:01: IVP, [place] 00 Q5Min, Dosing Weight 97.273, kg, PRN [...] ia 08-29 Route: l 14:01: IVP, ONCE, [place] 00 Dosing Weight 97.273, kg, PRN Nausea [...] 08-29 Route: PO, l 14:01: Drug form: [place] 00 TAB, ONCE, Dosing Weight 97.273, kg, [...] oria ne 08-29 Route: l 14:01: IVP, [place] 00 Q5Min, Dosing Weight 97.273, kg, PRN [...] ia 08-29 Route: l 14:01: IVP, ONCE, [place] 00 Dosing Weight 97.273, kg, PRN Nausea & Vomiting, Start date: 08/29/20 9:01:00 CDT Labetalol 1-0 No 10 mg, Memori a 08-29 Route: l 14:01: IVP, [place] 00 Q5Min, Dosing Weight 97.273, kg, PRN Elevated BP, Start date: 08/29/20 9:01:00 CDT, Duration: 5 doses or times, Stop date: Limited # of times Acetaminoph 1-0 No 1,000 mg, M emoria en 08-29 Route: PO, l 14:01: Drug form: [place] 00 TAB, ONCE, Dosing Weight 97.273, kg, [...] lisa 08-29 Route: l 14:01: IVP, PRN, [place] 00 Dosing Weight 97.273, kg, PRN Benzodiaze [...] Memori a 08-29 Route: l 14:01: IVP, [place] 00 Q5Min, Dosing Weight 97.273, kg, PRN Elevated BP, Start date: 08/29/20 9:01:00 CDT, Duration: 5 doses or times, Stop date: Limited # of times Acetaminoph 1-0 No 1,000 mg, M emoria en 08-29 Route: PO, l 14:01: Drug form: [place] 00 TAB, ONCE, Dosing Weight 97.273, kg, [...] lisa 08-29 Route: l 14:01: IVP, PRN, [place] Dosing Weight 97.273, kg, PRN Benzodiaze pine [...] Memori a 08-29 Route: l 14:01: IVP, [place] 00 Q2MIN, Dosing Weight 97.273, kg, PRN Narcotic Reversal, Start date: 08/29/20 9:01:00 CDT, Duration: 8 doses or times, Stop date: Limited # of times Ondansetron 2021-0 No 4 mg, Memor ia 08-29 Route: l 14:01: IVP, ONCE, [place] 00 Dosing Weight 97.273, kg, PRN Nausea & Vomiting, Start date: 08/29/20 9:01:00 CDT Labetalol 2021-0 No 10 mg, Memori a 08-29 Route: l 14:01: IVP, [place] 00 Q5Min, Dosing Weight 97.273, kg, PRN [...] lisa 08-29 Route: l 14:01: IVP, PRN, [place] 00 Dosing Weight 97.273, kg, PRN Benzodiaze [...] Memori a 08-29 Route: l 14:01: IVP, [place] 00 Q5Min, Dosing Weight 97.273, kg, PRN [...] oria ne 08-29 Route: l 14:01: IVP, [place] 00 Q5Min, Dosing Weight 97.273, kg, PRN Pain Score 7-10, Start date: 08/29/20 9:01:00 CDT, Duration: 4 doses or times, Stop date: Limited # of times Flumazenil 1-0 No 0.2 mg, Caesar lisa 08-29 Route: l 14:01: IVP, PRN, [place] 00 Dosing Weight 97.273, kg, PRN Benzodiaze pine Reversal, Initial dose, Start date: 08/29/20 9:01:00 CDT, Duration: 30 day, Stop date: 09/28/20 9:00:00 CDT Naloxone 2021-0 No 0.4 mg, Memori a 08-29 Route: l 14:01: IVP, [place] 00 Q2MIN, Dosing Weight 97.273, kg, PRN [...] Drug form: l 10 13:15: INJ, Start [place] microgram 00 date: 08/29/20 8:15:00 CDT, Stop [...] Drug form: l 10 13:15: INJ, Start [place] microgram date: 08/29/20 8:15:00 CDT, Stop date: 08/29/20 9:15:00 CDT norepinephr 2020-0 No Route: IV, Memoria ine (ANES) 08-29 Drug form: l 10 13:15: INJ, Start [place] microgram date: 08/29/20 8:15:00 CDT, Stop date: [...] 4-09 Total l 0.9% IV 12:30: Volume: [place] (ANES) 1000 00 1,000, mL Start date: 08/29/20 7:30:00 CDT, Stop date: 08/29/20 8:30:00 CDT Sodium 2021-0 No Route: IV, Memor ia Chloride 4-09 Total l 0.9% IV 12:30: Volume: [place] (ANES) 1000 00 1,000, mL Start date: 08/29/20 7:30:00 CDT, Stop date: 08/29/20 8:30:00 CDT Sodium 2021-0 No Route: IV, Memor ia Chloride 4-09 Total l 0.9% IV 12:30: Volume: [place] (ANES) 1000 00 1,000, mL Start date: 08/29/20 7:30:00 CDT, Stop date: 08/29/20 8:30:00 CDT Sodium 2021-0 No Route: IV, Memor ia Chloride 4-09 Total l 0.9% IV 12:30: Volume: [place] (ANES) 1000 00 1,000, mL Start date: [...] PO, l Hydrochlori 11:42: Q24H, # 30 [place] de 150 MG 00 tab, 0 Extended Refill(s) Release Tablet 24 HR Yes 150 mg = 1 Memori a Bupropion 4-09 tab, PO, l Hydrochlori 11:42: Q24H, # 30 [place] de 150 MG 00 tab, 0 Extended Refill(s) Release Tablet 24 HR Yes 150 mg = 1 Memori a Bupropion 4-09 tab, PO, l Hydrochlori 11:42: Q24H, # 30 [place] de 150 MG 00 tab, 0 Extended [...] 0 Extended Refill(s) Release Tablet 24 HR 2020- Yes 150 mg = 1 Memori a Bupropion - tab, PO, l Hydrochlori 11:42: Q24H, # 30 Marty de 150 MG 00 tab, 0 Extended Refill(s) Release Tablet apixaban 5 2020-0 Yes 5 mg, PO, Me moria MG Oral 4-09 Q12H, tab, l Tablet 11:41: 0 [place] [Eliquis] 00 Refill(s), For Atrial Fibrilatio n apixaban 5 2020-0 Yes 5 mg, PO, Me moria MG Oral 4-09 Q12H, tab, l Tablet 11:41: 0 [place] [Eliquis] 00 Refill(s), For Atrial Fibrilatio n [...] 4-09 Q12H, tab, l Tablet 11:41: 0 [place] [Eliquis] 00 Refill(s), For Atrial Fibrilatio n apixaban 5 2020-0 Yes 5 mg, PO, Me moria MG Oral 4-09 Q12H, tab, l Tablet 11:41: 0 [place] [Eliquis] 00 Refill(s), For Atrial Fibrilatio n apixaban 5 2020-0 Yes 5 mg, PO, Me moria MG Oral 4-09 Q12H, tab, l Tablet 11:41: 0 [place] [Eliquis] 00 Refill(s), For Atrial Fibrilatio n AMIODarone Yes 200 mg = 1 M emoria 200 mg oral 4-09 tab, PO, l tablet 11:38: Daily, # [place] 00 90 tab, 3 Refill(s) AMIODarone 2021-0 [...] tab, PO, l tablet 11:38: Daily, # [place] 00 90 tab, 3 Refill(s) normal No [...] 00:00: (Dyazide) 00 37.5-25 MG capsule Emtricitabi 2018- Yes [place] [facility]-Tenofovi 1-21 200 mg-25 [facility] AF 00:00: mg tablet (Descovy) 00 200-25 MG tablet Emtricitabi 2019- Yes [place]-Tenofovi 1-21 200 mg-25 [facility] r AF 00:00: mg tablet (Descovy) 00 [...] Ordered Filled Immunization Date Status Comments [facility] e Immunization Name Name SARS-COV-2 COVID-19 [...] [place] 65+ PFIZER COVID-19 2020-07-23 Completed [facility] MRNA VACCINATION 00:00:00 [facility] PFIZER COVID-19 2020-07-23 Completed [facility] MRNA VACCINATION 00:00:00 [facility] PFIZER COVID-19 2020-07-23 Completed [facility] MRNA VACCINATION 00:00:00 [facility] PFIZER COVID-19 2020-07-23 Completed [facility] MRNA VACCINATION 00:00:00 [facility] PFIZER COVID-19 2020-07-23 Completed [facility]ism MRNA VACCINATION 00:00:00 [facility] PFIZER COVID-19 2020-07-23 Completed [facility] MRNA VACCINATION 00:00:00 [facility] PFIZER COVID-19 2020-07-23 Completed [facility]ism MRNA VACCINATION 00:00:00 [facility] PFIZER COVID-19 2020-07-23 Completed [facility]ism MRNA VACCINATION 00:00:00 [facility] PFIZER COVID-19 2020-07-23 Completed [facility]ism MRNA VACCINATION 00:00:00 [facility] PFIZER COVID-19 2020-07-23 Completed [facility]ism MRNA VACCINATION 00:00:00 [facility] PFIZER COVID-19 2020-07-23 Completed [facility]ism MRNA VACCINATION 00:00:00 [facility] PFIZER COVID-19 2020-07-23 Completed [facility]uc[facility]ism MRNA VACCINATION 00:00:00 [facility] PFIZER COVID-19 2020-07-23 Completed [facility]ism MRNA VACCINATION 00:00:00 [facility] PFIZER COVID-19 2020-07-23 Completed [facility]ism MRNA VACCINATION 00:00:00 [facility] PFIZER COVID-19 2020-07-23 Completed [facility]ism MRNA VACCINATION 00:00:00 [facility] PFIZER COVID-19 2020-07-23 Completed [facility]ism MRNA VACCINATION 00:00:00 [facility] PFIZER COVID-19 2020-07-23 Completed [facility]ism MRNA VACCINATION 00:00:00 [facility] PFIZER COVID-19 2020-07-23 Completed [facility]ism MRNA VACCINATION 00:00:00 [facility] PFIZER COVID-19 2020-07-23 Completed [facility]ism MRNA VACCINATION 00:00:00 [facility] PFIZER COVID-19 2020-07-23 Completed [facility]ism MRNA VACCINATION 00:00:00 [facility] PFIZER COVID-19 2020-07-23 Completed [facility]ism MRNA VACCINATION 00:00:00 [facility] PFIZER COVID-19 2020-07-23 Completed [facility]ism MRNA VACCINATION 00:00:00 [facility] PFIZER COVID-19 2020-07-23 Completed [facility]ism MRNA VACCINATION 00:00:00 [facility] PFIZER COVID-19 2020-07-23 Completed [facility]ism MRNA VACCINATION 00:00:00 [facility] PFIZER COVID-19 2020-07-23 Completed [facility]ism MRNA VACCINATION 00:00:00 [facility] PFIZER COVID-19 2020-07-23 Completed [facility]ism MRNA VACCINATION 00:00:00 [facility] PFIZER COVID-19 2020-07-23 Completed [facility]ism MRNA VACCINATION 00:00:00 [facility] PFIZER COVID-19 2020-07-23 Completed [facility]ism MRNA VACCINATION 00:00:00 [facility] PFIZER COVID-19 2020-07-23 Completed [facility] MRNA VACCINATION 00:00:00 [facility] SARS-COV-2 COVID-19 2020-07-23 Completed [facility]ive rsity of PFIZER VACCINE 00:00:00 [facility] SARS-COV-2 COVID-19 2020-07-23 Completed Unive rsity of PFIZER VACCINE 00:00:00 [facility] SARS-COV-2 COVID-19 2020-07-23 Completed Unive rsity of PFIZER VACCINE 00:00:00 [facility] SARS-COV-2 COVID-19 2020-07-23 Completed Unive rsity of PFIZER VACCINE 00:00:00 [facility] SARS-COV-2 COVID-19 2020-07-23 Completed Unive rsity of PFIZER VACCINE 00:00:00 [facility] SARS-COV-2 COVID-19 2020-07-23 Completed Unive rsity of PFIZER VACCINE 00:00:00 [facility] SARS-COV-2 COVID-19 2020-07-23 Completed Unive rsity of PFIZER VACCINE 00:00:00 [facility] SARS-COV-2 COVID-19 2020-07-23 Completed Unive rsity of PFIZER VACCINE 00:00:00 [facility] SARS-COV-2 COVID-19 2020-07-23 Completed Unive rsity of PFIZER VACCINE 00:00:00 [facility] SARS-COV-2 COVID-19 2020-07-23 Completed Unive rsity of PFIZER VACCINE 00:00:00 [facility] SARS-COV-2 COVID-19 2020-07-23 Completed Unive rsity of PFIZER VACCINE 00:00:00 [facility] SARS-COV-2 COVID-19 2020-07-23 Completed Unive rsity of PFIZER VACCINE 00:00:00 [facility] SARS-COV-2 COVID-19 2020-07-23 Completed Unive rsity of PFIZER VACCINE 00:00:00 [facility] SARS-COV-2 COVID-19 2020-07-23 Completed Unive rsity of PFIZER VACCINE 00:00:00 [facility] PFIZER COVID-19 2020-07-23 Completed [facility] MRNA VACCINATION 00:00:00 [facility] PFIZER COVID-19 2020-07-02 Completed [facility]ism MRNA VACCINATION 00:00:00 [facility] PFIZER COVID-19 2020-07-02 Completed [facility] MRNA VACCINATION 00:00:00 Hospital PFIZER COVID-19 2020-07-02 Completed [facility]ism MRNA VACCINATION 00:00:00 [facility] PFIZER COVID-19 2020-07-02 Completed [facility] MRNA VACCINATION 00:00:00 [facility] PFIZER COVID-19 2020-07-02 Completed [facility] MRNA VACCINATION 00:00:00 [facility] PFIZER COVID-19 2020-07-02 Completed [facility] MRNA VACCINATION 00:00:00 [facility] PFIZER COVID-19 2020-07-02 Completed [facility] MRNA VACCINATION 00:00:00 [facility] PFIZER COVID-19 2020-07-02 Completed [facility] MRNA VACCINATION 00:00:00 [facility] PFIZER COVID-19 2020-07-02 Completed [facility] MRNA VACCINATION 00:00:00 [facility] PFIZER COVID-19 2020-07-02 Completed [facility] MRNA VACCINATION 00:00:00 [facility] PFIZER COVID-19 2020-07-02 Completed [facility] MRNA VACCINATION 00:00:00 [facility] PFIZER COVID-19 2020-07-02 Completed [facility] MRNA VACCINATION 00:00:00 [facility] PFIZER COVID-19 2020-07-02 Completed [facility] MRNA VACCINATION 00:00:00 [facility] PFIZER COVID-19 2020-07-02 Completed [facility] MRNA VACCINATION 00:00:00 [facility] PFIZER COVID-19 2020-07-02 Completed [facility] MRNA VACCINATION 00:00:00 [facility] PFIZER COVID-19 2020-07-02 Completed [facility] MRNA VACCINATION 00:00:00 [facility] PFIZER COVID-19 2020-07-02 Completed [facility] MRNA VACCINATION 00:00:00 [facility] PFIZER COVID-19 2020-07-02 Completed [facility] MRNA VACCINATION 00:00:00 [facility] PFIZER COVID-19 2020-07-02 Completed [facility] MRNA VACCINATION 00:00:00 [facility] PFIZER COVID-19 2020-07-02 Completed [facility] MRNA VACCINATION 00:00:00 [facility] PFIZER COVID-19 2020-07-02 Completed [facility] MRNA VACCINATION 00:00:00 [facility] PFIZER COVID-19 2020-07-02 Completed [facility] MRNA VACCINATION 00:00:00 [facility] PFIZER COVID-19 2020-07-02 Completed [facility] MRNA VACCINATION 00:00:00 [facility] PFIZER COVID-19 2020-07-02 Completed [facility] MRNA VACCINATION 00:00:00 [facility] PFIZER COVID-19 2020-07-02 Completed [facility] MRNA VACCINATION 00:00:00 [facility] PFIZER COVID-19 2020-07-02 Completed [facility] MRNA VACCINATION 00:00:00 [facility] PFIZER COVID-19 2020-07-02 Completed [facility] VACCINATION 00:00:00 [facility] PFIZER COVID-19 2020-07-02 Completed [facility] MRNA VACCINATION 00:00:00 [facility] PFIZER COVID-19 2020-07-02 Completed [facility] MRNA VACCINATION 00:00:00 [facility] SARS-COV-2 COVID-19 2020-07-02 Completed [facility] PFIZER VACCINE 00:00:00 [facility] SARS-COV-2 COVID-19 2020-07-02 Completed [facility] of PFIZER VACCINE 00:00:00 [facility] SARS-COV-2 COVID-19 2020-07-02 Completed [facility] of PFIZER VACCINE 00:00:00 [facility] SARS-COV-2 COVID-19 2020-07-02 Completed [facility] of PFIZER VACCINE 00:00:00 [facility] SARS-COV-2 COVID-19 2020-07-02 Completed [facility] of PFIZER VACCINE 00:00:00 [facility] SARS-COV-2 COVID-19 2020-07-02 Completed [facility] of PFIZER VACCINE 00:00:00 [facility] SARS-COV-2 COVID-19 2020-07-02 Completed [facility] of PFIZER VACCINE 00:00:00 [facility] SARS-COV-2 COVID-19 2020-07-02 Completed [facility] of PFIZER VACCINE 00:00:00 [facility] SARS-COV-2 COVID-19 2020-07-02 Completed [facility] of PFIZER VACCINE 00:00:00 [facility] SARS-COV-2 COVID-19 2020-07-02 Completed [facility] of PFIZER VACCINE 00:00:00 [facility] SARS-COV-2 COVID-19 2020-07-02 Completed [facility] of PFIZER VACCINE 00:00:00 [facility] SARS-COV-2 COVID-19 2020-07-02 Completed [facility] of PFIZER VACCINE 00:00:00 [facility] SARS-COV-2 COVID-19 2020-07-02 Completed [facility] of PFIZER VACCINE 00:00:00 [facility] SARS-COV-2 COVID-19 2020-07-02 Completed [facility] of PFIZER VACCINE 00:00:00 [facility] PFIZER COVID-19 2020-07-02 Completed [facility] MRNA VACCINATION 00:00:00 [facility] Influenza Virus 2017-03-08 Completed [facility] Vaccine 00:00:00 [facility] Influenza Virus 2017-03-08 Completed [facility] Vaccine 00:00:00 [facility] Influenza Virus 2017-03-08 Completed [facility] Vaccine 00:00:00 [facility] Influenza Virus 2017-03-08 Completed [facility] Vaccine 00:00:00 [facility] Influenza Virus 2017-03-08 Completed [facility] Vaccine 00:00:00 [facility] Influenza Virus 2017-03-08 Completed [facility] Vaccine 00:00:00 [facility] Influenza Virus 2017-03-08 Completed [facility] Vaccine 00:00:00 [facility] Influenza Virus 2017-03-08 Completed [facility] Vaccine 00:00:00 [facility] Influenza Virus 2017-03-08 Completed [facility] Vaccine 00:00:00 [facility] Influenza Virus 2017-03-08 Completed [facility] Vaccine 00:00:00 [facility] Influenza Virus 2017-03-08 Completed [facility] Vaccine 00:00:00 [facility] Influenza Virus 2017-03-08 Completed [facility] Vaccine 00:00:00 [facility] Influenza Virus 2017-03-08 Completed [facility] Vaccine 00:00:00 [facility] Influenza Virus 2017-03-08 Completed [facility] Vaccine 00:00:00 [facility] Influenza Virus 2017-03-08 Completed [facility] Vaccine 00:00:00 [facility] Influenza Virus 2017-03-08 Completed [facility] Vaccine 00:00:00 [facility] Influenza Virus 2017-03-08 Completed [facility] Vaccine 00:00:00 [facility] Influenza Virus 2017-03-08 Completed [facility] Vaccine 00:00:00 [facility] Influenza Virus 2014-01-30 Completed [facility] of Vaccine (3+ yrs) 00:00:00 [facility] Pneumococcal 13 2014-01-30 Completed [facility] of Conjugate, PCV13 00:00:00 [facility] (Prevnar 13) [place] Influenza Virus 2014-01-30 Completed [facility] Vaccine (3+ yrs) 00:00:00 [place] [facility] Pneumococcal 13 2014-01-30 Completed [facility] Conjugate, PCV13 00:00:00 [place] [facility] (Prevnar 13) [facility] Influenza Virus 2014-01-30 Completed [facility] Vaccine (3+ yrs) 00:00:00 [place] [facility] Pneumococcal 13 2014-01-30 Completed [facility] of Conjugate, PCV13 00:00:00 [facility] (Prevnar 13) [facility] Influenza Virus 2014-01-30 Completed [facility] of Vaccine (3+ yrs) 00:00:00 [place] [facility] Pneumococcal 13 2014-01-30 Completed [facility] of Conjugate, PCV13 00:00:00 [facility] (Prevnar 13) Branch Influenza Virus 2014-01-30 Completed [facility] of Vaccine (3+ yrs) 00:00:00 [facility] Pneumococcal 13 2014-01-30 Completed [facility] of Conjugate, PCV13 00:00:00 [facility] (Prevnar 13) Branch Influenza Virus 2014-01-30 Completed [facility] of Vaccine (3+ yrs) 00:00:00 [facility] Pneumococcal 13 2014-01-30 Completed [facility] of Conjugate, PCV13 00:00:00 [facility] (Prevnar 13) Branch Influenza Virus 2014-01-30 Completed [facility] of Vaccine (3+ yrs) 00:00:00 [facility] Pneumococcal 13 2014-01-30 Completed [facility] of Conjugate, PCV13 00:00:00 [facility] (Prevnar 13) Branch Influenza Virus 2014-01-30 Completed [facility] of Vaccine (3+ yrs) 00:00:00 [facility] Pneumococcal 13 2014-01-30 Completed [facility] of Conjugate, PCV13 00:00:00 [facility] (Prevnar 13) Branch Influenza Virus 2014-01-30 Completed [facility] of Vaccine (3+ yrs) 00:00:00 [facility] Pneumococcal 13 2014-01-30 Completed [facility] of Conjugate, PCV13 00:00:00 [facility] (Prevnar 13) Branch Influenza Virus 2014-01-30 Completed [facility] of Vaccine (3+ yrs) 00:00:00 [facility] Pneumococcal 13 2014-01-30 Completed [facility] of Conjugate, PCV13 00:00:00 [facility] (Prevnar 13) Branch Influenza Virus 2014-01-30 Completed [facility] Vaccine (3+ yrs) 00:00:00 [place] [facility] Pneumococcal 13 2014-01-30 Completed [facility] Conjugate, PCV13 00:00:00 [place] [facility] (Prevnar 13) [facility] Influenza Virus 2014-01-30 Completed [facility] Vaccine (3+ yrs) 00:00:00 [place] [facility] Pneumococcal 13 2014-01-30 Completed [facility] of Conjugate, PCV13 00:00:00 [facility] (Prevnar 13) Branch Influenza Virus 2014-01-30 Completed [facility] of Vaccine (3+ yrs) 00:00:00 [place] [facility] Pneumococcal 13 2014-01-30 Completed [facility] of Conjugate, PCV13 00:00:00 [facility] (Prevnar 13) Branch Influenza Virus 2014-01-30 Completed [facility] of Vaccine (3+ yrs) 00:00:00 [facility] Pneumococcal 13 2014-01-30 Completed [facility] of Conjugate, PCV13 00:00:00 [facility] (Prevnar 13) Branch Influenza Virus 2014-01-30 Completed [facility] of Vaccine (3+ yrs) 00:00:00 [place] [facility] Pneumococcal 13 2014-01-30 Completed [facility] of Conjugate, PCV13 00:00:00 [facility] (Prevnar 13) Branch Influenza Virus 2014-01-30 Completed [facility] of Vaccine (3+ yrs) 00:00:00 [facility] Pneumococcal 13 2014-01-30 Completed [facility] of Conjugate, PCV13 00:00:00 [facility] (Prevnar 13) Branch Influenza Virus 2014-01-30 Completed [facility] of Vaccine (3+ yrs) 00:00:00 [facility] Pneumococcal 13 2014-01-30 Completed [facility] of Conjugate, PCV13 00:00:00 [facility] (Prevnar 13) Branch Influenza Virus 2014-01-30 [...] y of Vaccine 00:00:00 [facility] PPD (TB) 2012-02-16 Completed [facility] 00:00:00 [facility] Pneumococcal 2012-02-16 Completed [facility] o f Polysaccharide, 00:00:00 [place] [facility] PPSV23 (PNEUMOVAX) Branch Influenza Virus 2012-02-16 Completed [facility] Vaccine 00:00:00 [facility] PPD (TB) 2012-02-16 Completed [facility] 00:00:00 [facility] Pneumococcal 2012-02-16 Completed [facility] f Polysaccharide, 00:00:00 [place] [facility] PPSV23 (PNEUMOVAX) [facility] Influenza Virus 2012-02-16 Completed [facility] Vaccine 00:00:00 [facility] PPD (TB) 2012-02-16 Completed [facility] 00:00:00 [facility] Pneumococcal 2012-02-16 Completed [facility] o f Polysaccharide, 00:00:00 [place] [facility] PPSV23 (PNEUMOVAX) [facility] Influenza Virus 2012-02-16 Completed [facility] Vaccine 00:00:00 [facility] PPD (TB) 2012-02-16 Completed [facility] 00:00:00 [facility] Pneumococcal 2012-02-16 Completed [facility] f Polysaccharide, 00:00:00 [place] [facility] PPSV23 (PNEUMOVAX) Branch Influenza Virus 2012-02-16 Completed [facility] Vaccine 00:00:00 [facility] PPD (TB) 2012-02-16 Completed [facility] 00:00:00 [facility] Pneumococcal 2012-02-16 Completed [facility] o f Polysaccharide, 00:00:00 [place] [facility] PPSV23 (PNEUMOVAX) [facility] Influenza Virus 2012-02-16 Completed [facility] Vaccine 00:00:00 [facility] PPD (TB) 2012-02-16 Completed [facility] 00:00:00 [facility] Pneumococcal 2012-02-16 Completed [facility] f Polysaccharide, 00:00:00 [place] [facility] PPSV23 (PNEUMOVAX) Branch Influenza Virus 2012-02-16 Completed [facility] Vaccine 00:00:00 [facility] PPD (TB) 2012-02-16 Completed [facility] 00:00:00 [facility] Pneumococcal 2012-02-16 Completed [facility] o f Polysaccharide, 00:00:00 [place] [facility] PPSV23 (PNEUMOVAX) [facility] Influenza Virus 2012-02-16 Completed [facility] Vaccine 00:00:00 [facility] PPD (TB) 2012-02-16 Completed [facility] 00:00:00 [facility] Pneumococcal 2012-02-16 Completed [facility] f Polysaccharide, 00:00:00 [place] [facility] PPSV23 (PNEUMOVAX) [facility] Influenza Virus 2012-02-16 Completed [facility] Vaccine 00:00:00 [facility] PPD (TB) 2012-02-16 Completed [facility] 00:00:00 [facility] Pneumococcal 2012-02-16 Completed [facility] f Polysaccharide, 00:00:00 [place] [facility] PPSV23 (PNEUMOVAX) Branch Influenza Virus 2012-02-16 Completed [facility] Vaccine 00:00:00 [facility] PPD (TB) 2012-02-16 Completed [facility] 00:00:00 [facility] Pneumococcal 2012-02-16 Completed [facility] f Polysaccharide, 00:00:00 [place] [facility] PPSV23 (PNEUMOVAX) Branch Influenza Virus 2012-02-16 Completed [facility] Vaccine 00:00:00 [facility] PPD (TB) 2012-02-16 Completed [facility] 00:00:00 [facility] Pneumococcal 2012-02-16 Completed [facility] f Polysaccharide, 00:00:00 [place] [facility] PPSV23 (PNEUMOVAX) Branch Influenza Virus 2012-02-16 Completed [facility] Vaccine 00:00:00 [facility] PPD (TB) 2012-02-16 Completed [facility] 00:00:00 [facility] Pneumococcal 2012-02-16 Completed [facility] f Polysaccharide, 00:00:00 [place] [facility] PPSV23 (PNEUMOVAX) Branch Influenza Virus 2012-02-16 Completed [facility] Vaccine 00:00:00 [facility] PPD (TB) 2012-02-16 Completed [facility] 00:00:00 [facility] Pneumococcal 2012-02-16 Completed [facility] f Polysaccharide, 00:00:00 [place] [facility] PPSV23 (PNEUMOVAX) Branch Influenza Virus 2012-02-16 Completed [facility] Vaccine 00:00:00 [facility] PPD (TB) 2012-02-16 Completed [facility] 00:00:00 [facility] Pneumococcal 2012-02-16 Completed [facility] f Polysaccharide, 00:00:00 [place] [facility] PPSV23 (PNEUMOVAX) Branch Influenza Virus 2012-02-16 Completed [facility] Vaccine 00:00:00 [facility] PPD (TB) 2012-02-16 Completed [facility] 00:00:00 [facility] Pneumococcal 2012-02-16 Completed [facility] f Polysaccharide, 00:00:00 [place] [facility] PPSV23 (PNEUMOVAX) Branch Influenza Virus 2012-02-16 Completed [facility] Vaccine 00:00:00 [facility] PPD (TB) 2012-02-16 Completed [facility] 00:00:00 [facility] Pneumococcal 2012-02-16 Completed [facility] f Polysaccharide, 00:00:00 [place] [facility] PPSV23 (PNEUMOVAX) Branch Influenza Virus 2012-02-16 Completed [facility] Vaccine 00:00:00 [facility] PPD (TB) 2012-02-16 Completed [facility] 00:00:00 [facility] Pneumococcal 2012-02-16 Completed [facility] o f Polysaccharide, 00:00:00 [place] [facility] PPSV23 (PNEUMOVAX) Branch Influenza Virus 2012-02-16 Completed [facility] Vaccine 00:00:00 [facility] PPD (TB) 2012-02-16 Completed [facility] 00:00:00 [facility] Hep B, Adol or Pedi 2011-09-01 Completed [facility]ive [facility] of Dosage 00:00:00 [facility] Hep B, Adol or Pedi 2011-09-01 Completed [facility] of Dosage 00:00:00 [facility] Hep B, Adol or Pedi 2011-09-01 Completed [facility] Dosage 00:00:00 [facility] Hep B, Adol or Pedi 2011-09-01 Completed [facility] of Dosage 00:00:00 [facility] Hep B, Adol or Pedi 2011-09-01 Completed [facility] of Dosage 00:00:00 [facility] Hep B, Adol or Pedi 2011-09-01 Completed [facility] of Dosage 00:00:00 [facility] Hep B, Adol or Pedi 2011-09-01 Completed [facility] Dosage 00:00:00 [facility] Hep B, Adol or Pedi 2011-09-01 Completed [facility] Dosage 00:00:00 [facility] Hep B, Adol or Pedi [...] Completed [facility] Dosage 00:00:00 [facility] Hep B, Adol or Pedi [...] Unive rs[facility] of Dosage 00:00:00 [facility] Hep B, Adol or Pedi 2011-03-17 Completed [facility] Dosage 00:00:00 [facility] Hep B, Adol or Pedi 2011-03-17 Completed [facility] of Dosage 00:00:00 [facility] Hep B, Adol or Pedi 2011-03-17 Completed [facility] of Dosage 00:00:00 [facility] Hep B, Adol or Pedi 2011-03-17 Completed [facility] Dosage 00:00:00 [facility] Hep B, Adol or Pedi 2011-03-17 Completed [facility] of Dosage 00:00:00 [facility] Hep B, Adol or Pedi 2011-03-17 Completed [facility] of Dosage 00:00:00 [facility] Hep B, Adol or Pedi 2011-03-17 Completed [facility] of Dosage 00:00:00 [facility] Hep B, Adol or Pedi 2011-03-17 Completed [facility] of Dosage 00:00:00 [facility] Hep B, Adol or Pedi 2011-03-17 Completed [facility] Dosage 00:00:00 [facility] Influenza Virus 2011-02-10 Completed [facility] Vaccine 00:00:00 [facility] Hep B, Adol or Pedi 2011-02-10 Completed [facility] Dosage 00:00:00 [facility] Influenza Virus 2011-02-10 Completed [facility] Vaccine 00:00:00 [facility] Hep B, Adol or Pedi 2011-02-10 Completed [facility] of Dosage 00:00:00 [facility] Influenza Virus 2011-02-10 Completed [facility] Vaccine 00:00:00 [facility] Hep B, Adol or Pedi 2011-02-10 Completed [facility] Dosage 00:00:00 [facility] Influenza Virus 2011-02-10 Completed [facility] Vaccine 00:00:00 [facility] Hep B, Adol or Pedi 2011-02-10 Completed [facility] Dosage 00:00:00 [facility] Influenza Virus 2011-02-10 Completed [facility] Vaccine 00:00:00 [facility] Hep B, Adol or Pedi 2011-02-10 Completed [facility] Dosage 00:00:00 [facility] Influenza Virus 2011-02-10 Completed [facility] Vaccine 00:00:00 [facility] Hep B, Adol or Pedi 2011-02-10 Completed [facility] Dosage 00:00:00 [facility] Influenza Virus 2011-02-10 Completed [facility] Vaccine 00:00:00 [facility] Hep B, Adol or Pedi 2011-02-10 Completed [facility] Dosage 00:00:00 [facility] Influenza Virus 2011-02-10 Completed [facility] Vaccine 00:00:00 [facility] Hep B, Adol or Pedi 2011-02-10 Completed [facility] Dosage 00:00:00 [facility] Influenza Virus 2011-02-10 Completed [facility] Vaccine 00:00:00 [facility] Hep B, Adol or Pedi 2011-02-10 Completed [facility] Dosage 00:00:00 [facility] Influenza Virus 2011-02-10 Completed [facility] Vaccine 00:00:00 [facility] Hep B, Adol or Pedi 2011-02-10 Completed [facility] Dosage 00:00:00 [facility] Influenza Virus 2011-02-10 Completed [facility] Vaccine 00:00:00 [facility] Hep B, Adol or Pedi 2011-02-10 Completed [facility] Dosage 00:00:00 [facility] Influenza Virus 2011-02-10 Completed [facility] Vaccine 00:00:00 [facility] Hep B, Adol or Pedi 2011-02-10 Completed [facility] Dosage 00:00:00 [facility] Influenza Virus 2011-02-10 Completed [facility] Vaccine 00:00:00 [facility] Hep B, Adol or Pedi 2011-02-10 Completed [facility] Dosage 00:00:00 [facility] Influenza Virus 2011-02-10 Completed [facility] Vaccine 00:00:00 [facility] Hep B, Adol or Pedi 2011-02-10 Completed [facility] Dosage 00:00:00 [facility] Influenza Virus 2011-02-10 Completed [facility] Vaccine 00:00:00 [facility] Hep B, Adol or Pedi 2011-02-10 Completed [facility] Dosage 00:00:00 [facility] Influenza Virus 2011-02-10 Completed [facility] Vaccine 00:00:00 [facility] Hep B, Adol or Pedi 2011-02-10 Completed [facility] Dosage 00:00:00 [facility] Influenza Virus 2011-02-10 Completed [facility] Vaccine 00:00:00 [facility] Hep B, Adol or Pedi 2011-02-10 Completed [facility] Dosage 00:00:00 [facility] Influenza Virus 2011-02-10 Completed [facility] Vaccine 00:00:00 [facility] Hep B, Adol or Pedi 2011-02-10 Completed [facility] Dosage 00:00:00 [facility] PPD (TB) 2010-11-18 Completed [facility] 00:00:00 [facility] TDAP (ADACEL) 2010-11-18 Completed [facility] of VACCINE 00:00:00 [facility] PPD (TB) 2010-11-18 Completed [facility] 00:00:00 [facility] TDAP (ADACEL) 2010-11-18 Completed [facility] VACCINE 00:00:00 [facility] PPD (TB) 2010-11-18 Completed [facility] 00:00:00 [facility] TDAP (ADACEL) 2010-11-18 Completed [facility] VACCINE 00:00:00 [facility] PPD (TB) 2010-11-18 Completed [facility] 00:00:00 [facility] TDAP (ADACEL) 2010-11-18 Completed [facility] VACCINE 00:00:00 [facility] PPD (TB) 2010-11-18 Completed [facility] 00:00:00 [facility] TDAP (ADACEL) 2010-11-18 Completed [facility] VACCINE 00:00:00 [facility] PPD (TB) 2010-11-18 Completed [facility] 00:00:00 [facility] TDAP (ADACEL) 2010-11-18 Completed [facility] VACCINE 00:00:00 [facility] PPD (TB) 2010-11-18 Completed [facility] 00:00:00 [facility] TDAP (ADACEL) 2010-11-18 Completed [facility] VACCINE 00:00:00 [facility] PPD (TB) 2010-11-18 Completed [facility] 00:00:00 [facility] TDAP (ADACEL) 2010-11-18 Completed [facility] VACCINE 00:00:00 [facility] PPD (TB) 2010-11-18 Completed [facility] 00:00:00 [facility] TDAP (ADACEL) 2010-11-18 Completed [facility] VACCINE 00:00:00 [facility] PPD (TB) 2010-11-18 Completed [facility] 00:00:00 [facility] TDAP (ADACEL) 2010-11-18 Completed [facility] VACCINE 00:00:00 [facility] PPD (TB) 2010-11-18 Completed [facility] 00:00:00 [facility] TDAP (ADACEL) 2010-11-18 Completed [facility] VACCINE 00:00:00 [facility] PPD (TB) 2010-11-18 Completed [facility] 00:00:00 [facility] TDAP (ADACEL) 2010-11-18 Completed [facility] VACCINE 00:00:00 [facility] PPD (TB) 2010-11-18 Completed [facility] 00:00:00 [facility] TDAP (ADACEL) 2010-11-18 Completed [facility] VACCINE 00:00:00 [facility] PPD (TB) 2010-11-18 Completed [facility] 00:00:00 [facility] TDAP (ADACEL) 2010-11-18 Completed [facility] VACCINE 00:00:00 [facility] PPD (TB) 2010-11-18 Completed [facility] 00:00:00 [facility] TDAP (ADACEL) 2010-11-18 Completed [facility] VACCINE 00:00:00 [facility] PPD (TB) 2010-11-18 Completed [facility] 00:00:00 [facility] TDAP (ADACEL) 2010-11-18 Completed [facility] VACCINE 00:00:00 [facility] PPD (TB) 2010-11-18 Completed [facility] 00:00:00 [facility] TDAP (ADACEL) 2010-11-18 Completed [facility] VACCINE 00:00:00 [facility] PPD (TB) 2010-11-18 Completed [facility] 00:00:00 [facility] TDAP (ADACEL) 2010-11-18 Completed [facility] of VACCINE 00:00:00 [facility] HEPATITIS A 2004-03-02 Completed [facility] 00:00:00 [facility] HEPATITIS A 2004-03-02 Completed [facility] 00:00:00 [facility] HEPATITIS A 2004-03-02 Completed [facility] 00:00:00 [facility] HEPATITIS A 2004-03-02 Completed [facility] 00:00:00 [facility] HEPATITIS A 2004-03-02 Completed [facility] 00[facility]00:00 [facility] HEPATITIS A 2004-03-02 Completed [facility] 00:00:00 [facility] HEPATITIS A 2004-03-02 Completed [facility] 00:00:00 [facility] HEPATITIS A 2004-03-02 Completed [facility] 00:00:00 [facility] HEPATITIS A 2004-03-02 Completed [facility] 00:00:00 [facility] HEPATITIS A 2004-03-02 Completed [facility] 00:00:00 [facility] HEPATITIS A 2004-03-02 Completed [facility] 00:00:00 [facility] HEPATITIS A 2004-03-02 Completed [facility] 00:00:00 [facility] HEPATITIS A 2004-03-02 Completed [facility] 00:00:00 [facility] HEPATITIS A 2004-03-02 Completed [facility] 00:00:00 [facility] HEPATITIS A 2004-03-02 Completed [facility] 00:00:00 [facility] HEPATITIS A 2004-03-02 Completed [facility] 00:00:00 [facility] HEPATITIS A 2004-03-02 Completed [facility] 00[facility]00:00 [facility] HEPATITIS A 2004-03-02 Completed [facility] 00:00:00 [facility] HEPATITIS A 2003-08-01 Completed [facility] 00:00:00 [facility] HEPATITIS A 2003-08-01 Completed [facility] 00:00:00 [facility] HEPATITIS A 2003-08-01 Completed [facility] 00:00:00 [facility] HEPATITIS A 2003-08-01 Completed [facility] 00:00:00 [facility] Branch HEPATITIS A 2003-08-01 Completed [facility] 00:00:00 [facility] Branch HEPATITIS A 2003-08-01 Completed [facility] 00:00:00 [facility] HEPATITIS A 2003-08-01 Completed [facility] 00:00:00 [facility] HEPATITIS A 2003-08-01 Completed [facility] 00:00:00 [facility] HEPATITIS A 2003-08-01 Completed [facility] 00:00:00 [facility] HEPATITIS A 2003-08-01 Completed [facility] 00:00:00 [facility] HEPATITIS A 2003-08-01 Completed [facility] 00:00:00 [facility] HEPATITIS A 2003-08-01 Completed [facility] 00:00:00 [facility] HEPATITIS A 2003-08-01 Completed [facility] 00:00:00 [facility] HEPATITIS A 2003-08-01 Completed [facility] 00:00:00 [facility] HEPATITIS A 2003-08-01 Completed [facility] 00:00:00 [facility] HEPATITIS A 2003-08-01 Completed [facility] 00:00:00 [facility] HEPATITIS A 2003-08-01 Completed [facility] 00:00:00 [facility] HEPATITIS A 2003-08-01 Completed [facility] 00:00:00 [facility] Pneumococcal 2001-10-04 Completed University o f Polysaccharide, 00:00:00 [place] [facility] PPSV23 (PNEUMOVAX) Branch PPD (TB) 2001-10-04 Completed [facility] 00:00:00 [facility] Pneumococcal 2001-10-04 Completed University o f Polysaccharide, 00:00:00 [place] [facility] PPSV23 (PNEUMOVAX) Branch PPD (TB) 2001-10-04 Completed [facility] 00:00:00 [facility] Pneumococcal 2001-10-04 Completed University o f Polysaccharide, 00:00:00 [place] [facility] PPSV23 (PNEUMOVAX) Branch PPD (TB) 2001-10-04 Completed [facility] 00:00:00 [facility] Pneumococcal 2001-10-04 Completed University o f Polysaccharide, 00:00:00 [place] [facility] PPSV23 (PNEUMOVAX) Branch PPD (TB) 2001-10-04 Completed [facility] 00:00:00 [facility] Pneumococcal 2001-10-04 Completed University o f Polysaccharide, 00:00:00 [place] [facility] PPSV23 (PNEUMOVAX) Branch PPD (TB) 2001-10-04 Completed [facility] 00:00:00 [facility] Pneumococcal 2001-10-04 Completed University o f Polysaccharide, 00:00:00 [place] [facility] PPSV23 (PNEUMOVAX) Branch PPD (TB) 2001-10-04 Completed [facility] 00:00:00 [facility] Pneumococcal 2001-10-04 Completed University o f Polysaccharide, 00:00:00 [place] [facility] PPSV23 (PNEUMOVAX) Branch PPD (TB) 2001-10-04 Completed [facility] 00:00:00 [facility] Pneumococcal 2001-10-04 Completed University o f Polysaccharide, 00:00:00 [place] [facility] PPSV23 (PNEUMOVAX) Branch PPD (TB) 2001-10-04 Completed [facility] 00:00:00 [facility] Pneumococcal 2001-10-04 Completed University o f Polysaccharide, 00:00:00 [place] [facility] PPSV23 (PNEUMOVAX) Branch PPD (TB) 2001-10-04 Completed [facility] 00:00:00 [facility] Pneumococcal 2001-10-04 Completed University o f Polysaccharide, 00:00:00 [place] [facility] PPSV23 (PNEUMOVAX) Branch PPD (TB) 2001-10-04 Completed [facility] 00:00:00 [facility] Pneumococcal 2001-10-04 Completed University o f Polysaccharide, 00:00:00 [place] [facility] PPSV23 (PNEUMOVAX) Branch PPD (TB) 2001-10-04 Completed [facility] 00:00:00 [facility] Pneumococcal 2001-10-04 Completed University o f Polysaccharide, 00:00:00 [place] [facility] PPSV23 (PNEUMOVAX) Branch PPD (TB) 2001-10-04 Completed [facility] 00:00:00 [facility] Pneumococcal 2001-10-04 Completed University o f Polysaccharide, 00:00:00 [place] [facility] PPSV23 (PNEUMOVAX) Branch PPD (TB) 2001-10-04 Completed [facility] 00:00:00 [facility] Pneumococcal 2001-10-04 Completed University o f Polysaccharide, 00:00:00 [place] [facility] PPSV23 (PNEUMOVAX) Branch PPD (TB) 2001-10-04 Completed [facility] 00:00:00 [facility] Pneumococcal 2001-10-04 Completed University o f Polysaccharide, 00:00:00 [place] [facility] PPSV23 (PNEUMOVAX) Branch PPD (TB) 2001-10-04 Completed [facility] 00:00:00 [facility] Pneumococcal 2001-10-04 Completed University o f Polysaccharide, 00:00:00 [place] [facility] PPSV23 (PNEUMOVAX) Branch PPD (TB) 2001-10-04 Completed [facility] 00:00:00 [facility] Pneumococcal 2001-10-04 Completed University o f Polysaccharide, 00:00:00 [place] [facility] PPSV23 (PNEUMOVAX) Branch PPD (TB) 2001-10-04 Completed [facility] 00:00:00 [facility] Pneumococcal 2001-10-04 Completed University o f Polysaccharide, 00:00:00 [place] [facility] PPSV23 (PNEUMOVAX) Branch PPD (TB) 2001-10-04 Completed [facility] 00:00:00 [facility] Vital Signs Vital Name Observation Time Observation Value Comments Source Systolic blood 2022-05-10 22:00:00 159 mm[Hg] Univer sity of pressure [facility] Diastolic blood 2022-05-10 22:00:00 87 mm[Hg] Unive rsity of pressure [facility] Heart rate 2022-05-10 22:00:00 56 /min [facility] Body temperature 2022-05-10 22:00:00 36.61 Amina Univ ersity [facility] Respiratory rate 2022-05-10 22:00:00 17 /min Univ ersity [facility] Oxygen saturation in 2022-05-10 22:00:00 98 /min University of Arterial blood by [place] [facility] Pulse oximetry Branch Body weight 2022-05-10 [...] 100 /min [facility] of Arterial blood by [place] [facility] Pulse oximetry Branch Body temperature 2022-05-08 22:22:00 [...] 99 /min University of Arterial blood by [facility] Pulse oximetry Branch Body temperature 2022-05-06 20:12:00 36.5 Amina Univ ersity of [facility] Body height 2022-05-06 20:12:00 162.6 cm [facility] Body weight 2022-05-06 20:12:00 78.926 kg [facility] [place] [facility] BMI 2022-05-06 20:12:00 29.87 kg/m2 [facility] Systolic blood 2022-04-22 19:50:00 156 mm[Hg] Univer sity of pressure [facility] Diastolic blood 2022-04-22 19:50:00 89 mm[Hg] Unive rsity of pressure [facility] Heart rate 2022-04-22 19:50:00 69 /min [facility] Body temperature 2022-04-22 19:50:00 36.67 Amina Univ ers[facility] Respiratory rate 2022-04-22 19:50:00 17 /min Univ ersity of [facility] Body height 2022-04-22 19:50:00 162.6 cm [facility] Body weight 2022-04-22 19:50:00 80.74 kg [facility] BMI 2022-04-22 19:50:00 30.55 kg/m2 [facility] [place] [facility] [place] Oxygen saturation in 2022-04-22 19:50:00 96 /min University of Arterial blood by [facility] Pulse oximetry Branch Systolic blood 2022-03-05 15:23:00 167 mm[Hg] Univer sity of pressure [facility] Diastolic blood 2022-03-05 15:23:00 105 mm[Hg] Unive rsity of pressure [facility] Heart rate 2022-03-05 15:23:00 49 /min [facility] Body temperature 2022-03-05 15:18:00 36.67 Amina Univ [facility] Respiratory rate 2022-03-05 15:18:00 18 /min Univ ersity of [facility] Body height 2022-03-05 15:18:00 162.6 cm [facility] Body weight 2022-03-05 15:18:00 74.707 kg [facility] [place] [facility] [place] BMI 2022-03-05 15:18:00 28.27 kg/m2 [facility] Systolic blood 2022-02-16 21:41:00 169 mm[Hg] Univer sity of pressure [facility] Diastolic blood 2022-02-16 21:41:00 86 mm[Hg] Unive rsity of pressure [facility] Heart rate 2022-02-16 21:41:00 51 /min Universi ty of [facility] Body temperature 2022-02-16 21:41:00 36.56 Amina Univ ersity of [facility] Respiratory rate 2022-02-16 21:41:00 17 /min [facility] Oxygen saturation in 2022-02-16 21:41:00 98 /min [facility] Arterial blood by [facility] Pulse oximetry Branch Body height 2022-02-11 16:02:00 162.6 cm Universi ty of [facility] Body weight 2022-02-11 16:02:00 79.379 kg [facility] [place] [facility] [place] BMI 2022-02-11 16:02:00 30.04 kg/m2 [facility] Systolic blood 2021-11-20 13:47:00 165 mm[Hg] Univer sity of pressure [facility] Diastolic blood 2021-11-20 13:47:00 83 mm[Hg] Unive rsity of [facility] Heart rate 2021-11-20 13:47:00 58 /min Universi ty of [facility] Body temperature 2021-11-20 13:42:00 36.39 Amina Univ ersity of [facility] Respiratory rate 2021-11-20 13:42:00 16 /min Univ ersity of [facility] Body height 2021-11-20 13:42:00 162.6 cm [facility] [place] [facility] [place] Body weight 2021-11-20 13:42:00 84.369 kg [facility] [place] [facility] [place] BMI 2021-11-20 13:42:00 31.93 kg/m2 [facility] Systolic blood 2021-07-14 15:18:00 142 mm[Hg] [facility] Diastolic blood 2021-07-14 15:18:00 76 mm[Hg] [facility] Heart rate 2021-07-14 15:18:00 61 [facility] Body height 2021-07-14 15:18:00 [facility]6 [facility] Body weight 2021-07-14 15:18:00 [facility]802 [facility] BMI 2021-07-14 15:18:00 35.87 kg/m2 [facility] Systolic blood 2022-03-05 15:23:00 167 mm[Hg] Univer sity of pressure [facility] Diastolic blood 2022-03-05 15:23:00 105 mm[Hg] Unive rsity of [facility] Heart rate 2022-03-05 15:23:00 49 /min Universi ty [facility] Body temperature 2022-03-05 15:18:[address] [facility] 2022-03-05 15:18:00 18 /min [facility] Body height 2022-03-05 15:18:00 162.6 cm [facility] Body weight 2022-03-05 15:18:00 74.707 kg Universi ty [facility] BMI 2022-03-05 15:18:00 28.27 kg/m2 [facility] Oxygen saturation in 2022-02-16 21:41:00 98 /min [facility] Arterial blood by [facility] Pulse oximetry Branch Systolic blood 2020-12-08 15:48:00 125 mm[Hg] Method [facility] pressure Diastolic blood 2020-12-08 15:48:00 76 mm[Hg] [facility] pressure Heart rate 2020-12-08 15:48:00 64 /min [facility] Body temperature 2020-12-08 15:48:00 36.61 Amina [facility] Respiratory rate 2020-12-08 15:48:00 17 /min [facility] Body height 2020-12-08 15:48:00 162.6 cm [facility] Body weight 2020-12-08 15:48:00 98.884 kg [facility] BMI 2020-12-08 15:48:00 37.42 kg/m2 [facility] Oxygen saturation in 2020-12-08 15:48:00 97 /min [facility] Arterial blood by Pulse oximetry Respitory Rate 2020-08-30 13:00:00 Memori al Marty Systolic (mm Hg) 2020-08-30 13:00:00 Caesar rial [place] Diastolic (mm Hg) 2020-08-30 13:00:00 Mem orial [place] Systolic (mm Hg) 2020-08-30 11:00:00 Caesar [facility] [place] Diastolic (mm Hg) 2020-08-30 11:00:00 Mem orial [place] Temperature Oral (F) 2020-08-30 11:00:00 98.4 F [facility] Respitory Rate 2020-08-30 11:00:00 Memori al [facility] Respitory Rate 2020-08-30 10:00:00 Memori al [place] Systolic (mm Hg) 2020-08-30 10:00:00 Caesar rial [place] Diastolic (mm Hg) 2020-08-30 10:00:00 Mem orial [place] Temperature Oral (F) 2020-08-30 00:00:00 96.9 F [facility] Temperature Oral (F) 2020-08-29 11:26:00 97.6 F [facility] Height 2020-08-29 10:30:00 162.56 [facility] 2020-08-29 10:30:00 [facility] BMI Calculated 2020-08-29 10:30:00 [place] and[place] Procedures Procedure Date / Time Performing Clinician Source Performed URINALYSIS 2022-05-10 19:36:00 Home Matthews [facility] TROPONIN I 2022-05-10 18:34:00 Home Matthews [facility] COMP. METABOLIC PANEL 2022-05-10 18:34:00 Home Matthews [facility] ([id number]) [facility] CBC WITH DIFF 2022-05-10 18:34:00 Home Matthews [facility] XR CHEST 2 VW 2022-05-10 17:24:58 Home Matthews [facility] CONSENT/REFUSAL FOR 2022-05-10 16:26:23 Doctor Unassigned, [facility] DIAGNOSIS AND TREATMENT [place] [facility] CONSENT/REFUSAL FOR 2022-05-10 16:26:09 Doctor Unassigned, [facility] DIAGNOSIS AND TREATMENT [place] Medical [place] URINALYSIS 2022-05-08 22:43:00 Theresa Hickman [facility] XR CHEST 2 VW 2022-05-06 22:56:53 Anette Olea [facility] COMP. METABOLIC PANEL 2022-05-06 22:14:00 Anette Olea [facility] ([id number]) Medical Branch CBC WITH DIFF 2022-05-06 22:14:00 Anette Olea [facility] COVID-19 (ID NOW RAPID 2022-05-06 22:14:00 Anette Olea [facility] TESTING) Medical Branch BASIC METABOLIC PANEL (NA, 2022-04-22 21:23:00 Paulette Gray [facility] K, CL, CO2, GLUCOSE, BUN, Medica l [place] CREATININE, [place]) CBC WITH DIFF 2022-04-22 21:23:00 Paulette Gray [facility] CONSENT/REFUSAL FOR 2022-04-22 19:45:46 Doctor Unassigned, [facility] DIAGNOSIS AND TREATMENT [place] [facility] SARS-COV-2 COVID-19 2022-03-05 16:09:27 [facility] DIMITRIS-SUCROSE VACCINE [address] [place] [address] YRS+, BIVALENT 0.3ML, IM, (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) FLU 2022-03-05 16:09:27 [facility] VACC(),65+YR,0.5 Medica l Branch ML,IM,ADJUVANTED,QUAD(FLUA D) FLU 2022-03-05 16:09:27 [facility] VACC(),65+YR,0.5 Medica l Branch ML,IM,ADJUVANTED,QUAD(FLUA D) SARS-COV-2 COVID-19 2022-03-05 16:09:27 [facility] DIMITRIS-SUCROSE VACCINE [address] [place] [address] YRS+, BIVALENT 0.3ML, IM, (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) MAGNESIUM 2022-02-15 09:41:00 Sofia Garcia [facility] BASIC METABOLIC PANEL (NA, 2022-02-15 09:41:00 Sofia Garcia [facility] K, CL, CO2, GLUCOSE, BUN, Medica l Branch CREATININE, [place]) CBC WITH DIFF 2022-02-15 09:41:00 Sofia Garcia [facility] N-TERMINAL PRO-BNP 2022-02-15 09:41:00 Sofia Garcia [facility] CBC WITH DIFF 2022-02-15 09:41:00 Radha [facility] BASIC METABOLIC PANEL (NA, 2022-02-15 09:41:00 Sofia Garcia [facility] K, CL, CO2, GLUCOSE, BUN, Medica l Branch CREATININE, CA) MAGNESIUM 2022-02-15 09:41:00 Radha [facility] N-TERMINAL PRO-BNP 2022-02-15 09:41:00 Sofia Garcia [facility] BASIC METABOLIC PANEL (NA, 2022-02-13 09:40:00 Sofia Garcia [facility] K, CL, CO2, GLUCOSE, BUN, Medica l Branch CREATININE, CA) CBC WITH DIFF 2022-02-13 09:40:00 Radha [facility] BASIC METABOLIC PANEL (NA, 2022-02-13 09:40:00 Sofia Garcia [facility] K, CL, CO2, GLUCOSE, BUN, Medica l Branch CREATININE, CA) CBC WITH DIFF 2022-02-13 09:40[facility]00 [facility] 2022-02-11 23:41:00 Radha [facility] N-TERMINAL PRO-BNP 2022-02-11 23:41:00 Radha [facility] TROPONIN I 2022-02-11 23:41:00 Sofia Garcia [facility] N-TERMINAL PRO-BNP 2022-02-11 23:41:00 Sofia Garcia [facility] HB ECG ROUTINE & RHYTHM 2022-02-11 22:15:36 Sofia Garcia [facility] TRANSTHORACIC ECHO (TTE) 2022-02-11 21:26:50 [facility] 2022-02-11 21:26:50 [facility] 2022-02-11 07:45:43 Reilly Means [facility] CONTRAST [facility] CT ABDOMEN PELVIS W 2022-02-11 07:45:43 Reilly Means [facility] CONTRAST [facility] RAPID INFLUENZA A/B 2022-02-11 06:54:00 Reilly Means [facility] RAPID INFLUENZA A/B 2022-02-11 06:54:00 Reilly Means [facility] URINALYSIS 2022-02-11 06:45:00 Reilly Means [facility] URINE CULTURE 2022-02-11 06:45:00 Reilly Means [facility] URINALYSIS 2022-02-11 06:45:00 Reilly Means [facility] URINE CULTURE 2022-02-11 06:45:00 Reilly Means [facility] HB ECG ROUTINE & RHYTHM 2022-02-11 05:22:08 Reilly Means [facility] HB ECG ROUTINE & RHYTHM 2022-02-11 05:22:08 Reilly Means [facility] BLOOD CULTURE SCREEN 2022-02-11 04:58:00 Reilly Means [facility] TROPONIN I 2022-02-11 04:58:00 Reilly Means [facility] COMP. METABOLIC PANEL 2022-02-11 04:58:00 Reilly Means [facility] ([id number]) [facility] CBC WITH DIFF 2022-02-11 04:58:00 Reilly Means [facility] PROTHROMBIN TIME / INR 2022-02-11 04:58:00 Reilly Means [facility] ACTIVATED PARTIAL THRMPLAS 2022-02-11 04:58:00 Reilly Means [facility] N-TERMINAL PRO-BNP 2022-02-11 04:58:00 Reilly Means [facility] LACTIC ACID WHOLE BLOOD 2022-02-11 04:58:00 [facility] COVID-19 (ID NOW RAPID 2022-02-11 04:58:00 Reilly Means [facility] TESTING) Medical Branch LAB ONLY COVID 2022-02-11 04:58:00 Reilly Means [facility] CBC WITH DIFF 2022-02-11 04:58:00 Reilly Means [facility] ACTIVATED PARTIAL THRMPLAS 2022-02-11 04:58:00 Reilly Means [facility] PROTHROMBIN TIME / INR 2022-02-11 04:58:00 Reilly Means [facility] COVID-19 (ID NOW RAPID 2022-02-11 04:58:00 Reilly Means [facility] TESTING) Medical Branch COMP. METABOLIC PANEL 2022-02-11 04:58:00 Reilly Means [facility] ([id number]) Medical Branch TROPONIN I 2022-02-11 04:58:00 Rielly Means [facility] N-TERMINAL PRO-BNP 2022-02-11 04:58:00 Reilly Means [facility] BLOOD CULTURE SCREEN 2022-02-11 04:58:00 Reilly Means [facility] LACTIC ACID WHOLE BLOOD 2022-02-11 04:58:00 [facility] LAB ONLY COVID 2022-02-11 04:58:00 Reilly Means [facility] XR CHEST 1 VW 2022-02-11 04:27:42 Reilly Means [facility] XR CHEST 1 VW 2022-02-11 04:27:42 Reilly Means [facility] HOSPITAL ADMISSION 2022-02-10 05:01:00 Doctor Unassigned, [facility] Name Medical [place] HOSPITAL ADMISSION 2022-02-10 05:01:00 Doctor Unassigned, [facility] Name Medical [place] ECG 12-LEAD 2021-07-14 15:14:00 Elan Lira [facility] [id number] 2021-06-17 00:00:00 RIKY Freedman [facility] GASTROINTESTINAL PANEL 2020-12-08 22:21:[address] [facility] XR ABDOMEN 1 VW 2020-12-08 18:06:32 Eliseo Arce spital OR [place] < 1 HOUR 2020-09-05 22:39:00 Eliseo Arce spital SURGICAL PATHOLOGY REQUEST 2020-09-05 21:54:00 Eliseo Arce [facility] XR CHEST 1 VW PORTABLE 2020-09-05 19:55[facility]00 [facility] DISCHARGE PATIENT 2020-09-05 17:27:55 Lucas Harris [facility] IA AN ELECTIVE 2020-09-05 16:47:23 Kirit Flood V. [facility] ENDOTRACHEAL AIRWAY EGD, INTRAOPERATIVE 2020-09-05 16:27:00 [facility] 2020-09-05 15:04:00 [employer] [employer] TIME (PTT) M. PROTHROMBIN TIME WITH INR 2020-09-05 15:04:00 Mindy Maharaj [facility] M. Plan of Care Planned Activity Planned Date Details Comments Source Future Scheduled 2022-06-11 SHINGLES VACCINES (1 Met [facility] Test 16:10:12 of 2) [code = SHINGLES VACCINES (1 of 2)] Future Scheduled 2022-06-11 BREAST CANCER [facility] Test 16:10:12 SCREENING [code = BREAST CANCER SCREENING] Future Scheduled 2022-06-11 COLONOSCOPY SCREENING [facility] Test 16:10:12 [code = COLONOSCOPY SCREENING] Future Scheduled 2022-06-11 HEPATITIS B VACCINES Met [facility] Test 16:10:12 (1 of 3 - Risk 3-dose series) [code = HEPATITIS B VACCINES (1 of 3 - Risk 3-dose series)] Future Scheduled 2022-06-11 COVID-19 VACCINE (3 - [facility] Test 16:10:12 Booster for Pfizer series) [code = COVID-19 VACCINE (3 - Booster for Pfizer series)] Future Scheduled 2022-06-11 65+ PNEUMOCOCCAL [facility] Test 16:10:12 VACCINE (4 - PPSV23 if available, else PCV20) [code = 65+ PNEUMOCOCCAL VACCINE (4 - PPSV23 if available, else PCV20)] Future Scheduled 2022-06-11 INFLUENZA VACCINE Method [facility] Test 16:10:12 [code = INFLUENZA VACCINE] Future Scheduled 2022-05-10 SHINGLES VACCINES (1 Met [facility] Test 10:21:35 of 2) [code = SHINGLES VACCINES (1 of 2)] Future Scheduled 2022-05-10 BREAST CANCER [facility] Test 10:21:35 SCREENING [code = BREAST CANCER SCREENING] Future Scheduled 2022-05-10 COLONOSCOPY SCREENING [facility] Test 10:21:35 [code = COLONOSCOPY SCREENING] Future Scheduled 2022-05-10 HEPATITIS B VACCINES Met [facility] Test 10:21:35 (1 of 3 - Risk 3-dose series) [code = HEPATITIS B VACCINES (1 of 3 - Risk 3-dose series)] Future Scheduled 2022-05-10 COVID-19 VACCINE (3 - [facility] Test 10:21:35 Booster for Pfizer series) [code = COVID-19 VACCINE (3 - Booster for Pfizer series)] Future Scheduled 2022-05-10 65+ [facility] 10:21:35 VACCINE (4 - PPSV23 if available, else PCV20) [code = 65+ PNEUMOCOCCAL VACCINE (4 - PPSV23 if available, else PCV20)] Future Scheduled 2022-05-10 INFLUENZA VACCINE [facility] Test 10:21:35 [code = INFLUENZA VACCINE] Future Scheduled 2022-05-10 SHINGLES VACCINES (1 Met [facility] Test 10:21:35 of 2) [code = SHINGLES VACCINES (1 of 2)] Future Scheduled 2022-05-10 BREAST CANCER [facility] Test 10:21:35 SCREENING [code = BREAST CANCER SCREENING] Future Scheduled 2022-05-10 COLONOSCOPY SCREENING [facility] Test 10:21:35 [code = COLONOSCOPY SCREENING] Future Scheduled 2022-05-10 HEPATITIS B VACCINES Met [facility] Test 10:21:35 (1 of 3 - Risk 3-dose series) [code = HEPATITIS B VACCINES (1 of 3 - Risk 3-dose series)] Future Scheduled 2022-05-10 COVID-19 VACCINE (3 - Me [facility] Test 10:21:35 Booster for Pfizer series) [code = COVID-19 VACCINE (3 - Booster for Pfizer series)] Future Scheduled 2022-05-10 65+ PNEUMOCOCCAL [facility] Test 10:21:35 VACCINE (4 - PPSV23 if available, else PCV20) [code = 65+ PNEUMOCOCCAL VACCINE (4 - PPSV23 if available, else PCV20)] Future Scheduled 2022-05-10 INFLUENZA VACCINE Method [facility] Test 10:21:35 [code = INFLUENZA VACCINE] Future Scheduled 2022-05-06 SHINGLES VACCINES (1 Met [facility] Test 14:03:13 of 2) [code = SHINGLES VACCINES (1 of 2)] Future Scheduled 2022-05-06 BREAST CANCER [facility] Test 14:03:13 SCREENING [code = BREAST CANCER SCREENING] Future Scheduled 2022-05-06 COLONOSCOPY SCREENING [facility] Test 14:03:13 [code = COLONOSCOPY SCREENING] Future Scheduled 2022-05-06 HEPATITIS B VACCINES Met [facility] Test 14:03:13 (1 of 3 - Risk 3-dose series) [code = HEPATITIS B VACCINES (1 of 3 - Risk 3-dose series)] Future Scheduled 2022-05-06 COVID-19 VACCINE (3 - [facility] Test 14:03:13 Booster for Pfizer series) [code = COVID-19 VACCINE (3 - Booster for Pfizer series)] Future Scheduled 2022-05-06 65+ PNEUMOCOCCAL [facility] Test 14:03:13 VACCINE (4 - PPSV23 if available, else PCV20) [code = 65+ PNEUMOCOCCAL VACCINE (4 - PPSV23 if available, else PCV20)] Future Scheduled 2022-05-06 INFLUENZA VACCINE Method [facility] Test 14:03:13 [code = INFLUENZA VACCINE] Future Scheduled 2022-04-30 SHINGLES VACCINES (1 Met [facility] Test 01:07:32 of 2) [code = SHINGLES VACCINES (1 of 2)] Future Scheduled 2022-04-30 BREAST CANCER [facility] Test 01:07:32 SCREENING [code = BREAST CANCER SCREENING] Future Scheduled 2022-04-30 COLONOSCOPY SCREENING [facility] Test 01:07:32 [code = COLONOSCOPY SCREENING] Future Scheduled 2022-04-30 HEPATITIS B VACCINES Met [facility] Test 01:07:32 (1 of 3 - Risk 3-dose series) [code = HEPATITIS B VACCINES (1 of 3 - Risk 3-dose series)] Future Scheduled 2022-04-30 COVID-19 VACCINE (3 - Me [facility] Test 01:07:32 Booster for Pfizer series) [code = COVID-19 VACCINE (3 - Booster for Pfizer series)] Future Scheduled 2022-04-30 65+ PNEUMOCOCCAL [facility] Test 01:07:32 VACCINE (4 - PPSV23 if available, else PCV20) [code = 65+ PNEUMOCOCCAL VACCINE (4 - PPSV23 if available, else PCV20)] Future Scheduled 2022-04-30 INFLUENZA VACCINE Method [facility] Test 01:07:32 [code = INFLUENZA VACCINE] Future Scheduled 2022-04-30 SHINGLES VACCINES (1 Met [facility] Test 01:07:32 of 2) [code = SHINGLES VACCINES (1 of 2)] Future Scheduled 2022-04-30 BREAST CANCER [facility] Test 01:07:32 SCREENING [code = BREAST CANCER SCREENING] Future Scheduled 2022-04-30 COLONOSCOPY SCREENING [facility] Test 01:07:32 [code = COLONOSCOPY SCREENING] Future Scheduled 2022-04-30 HEPATITIS B VACCINES Met [facility] Test 01:07:32 (1 of 3 - Risk 3-dose series) [code = HEPATITIS B VACCINES (1 of 3 - Risk 3-dose series)] Future Scheduled 2022-04-30 COVID-19 VACCINE (3 - [facility] Test 01:07:32 Booster for Pfizer series) [code = COVID-19 VACCINE (3 - Booster for Pfizer series)] Future Scheduled 2022-04-30 65+ [facility] 01:07:32 VACCINE (4 - PPSV23 if available, else PCV20) [code = 65+ PNEUMOCOCCAL VACCINE (4 - PPSV23 if available, else PCV20)] Future Scheduled 2022-04-30 INFLUENZA VACCINE Method [facility] Test 01:07:32 [code = INFLUENZA VACCINE] Future Scheduled 2022-04-30 SHINGLES VACCINES (1 Met [facility] Test 01:07:32 of 2) [code = SHINGLES VACCINES (1 of 2)] Future Scheduled 2022-04-30 BREAST CANCER [facility] Test 01:07:32 SCREENING [code = BREAST CANCER SCREENING] Future Scheduled 2022-04-30 COLONOSCOPY SCREENING [facility] Test 01:07:32 [code = COLONOSCOPY SCREENING] Future Scheduled 2022-04-30 HEPATITIS B VACCINES Met [facility] Test 01:07:32 (1 of 3 - Risk 3-dose series) [code = HEPATITIS B VACCINES (1 of 3 - Risk 3-dose series)] Future Scheduled 2022-04-30 COVID-19 VACCINE (3 - Me [facility] Test 01:07:32 Booster for Pfizer series) [code = COVID-19 VACCINE (3 - Booster for Pfizer series)] Future Scheduled 2022-04-30 65+ [facility] 01:07:32 VACCINE (4 - PPSV23 if available, else PCV20) [code = 65+ PNEUMOCOCCAL VACCINE (4 - PPSV23 if available, else PCV20)] Future Scheduled 2022-04-30 INFLUENZA VACCINE Method [facility] Test 01:07:32 [code = INFLUENZA VACCINE] Future Scheduled 2022-04-25 SHINGLES VACCINES (1 Met [facility] Test 01:45:02 of 2) [code = SHINGLES VACCINES (1 of 2)] Future Scheduled 2022-04-25 BREAST CANCER [facility] Test 01:45:02 SCREENING [code = BREAST CANCER SCREENING] Future Scheduled 2022-04-25 COLONOSCOPY SCREENING [facility] Test 01:45:02 [code = COLONOSCOPY SCREENING] Future Scheduled 2022-04-25 HEPATITIS B VACCINES Met [facility] Test 01:45:02 (1 of 3 - Risk 3-dose series) [code = HEPATITIS B VACCINES (1 of 3 - Risk 3-dose series)] Future Scheduled 2022-04-25 COVID-19 VACCINE (3 - Me [facility] Test 01:45:02 Booster for Pfizer series) [code = COVID-19 VACCINE (3 - Booster for Pfizer series)] Future Scheduled 2022-04-25 65+ [facility] Test 01:45:02 VACCINE (4 - PPSV23 if available, else PCV20) [code = 65+ PNEUMOCOCCAL VACCINE (4 - PPSV23 if available, else PCV20)] Future Scheduled 2022-04-25 INFLUENZA VACCINE Method [facility] Test 01:45:02 [code = INFLUENZA VACCINE] Future Scheduled 2022-03-25 SHINGLES VACCINES (1 Met [facility] Test 14:48:42 of 2) [code = SHINGLES VACCINES (1 of 2)] Future Scheduled 2022-03-25 BREAST CANCER [facility] Test 14:48:42 SCREENING [code = BREAST CANCER SCREENING] Future Scheduled 2022-03-25 COLONOSCOPY SCREENING [facility] Test 14:48:42 [code = COLONOSCOPY SCREENING] Future Scheduled 2022-03-25 HEPATITIS B VACCINES Met [facility] Test 14:48:42 (1 of 3 - Risk 3-dose series) [code = HEPATITIS B VACCINES (1 of 3 - Risk 3-dose series)] Future Scheduled 2022-03-25 COVID-19 VACCINE (3 - [facility] Test 14:48:42 Booster for Pfizer series) [code = COVID-19 VACCINE (3 - Booster for Pfizer series)] Future Scheduled 2022-03-25 65+ [facility] 14:48:42 VACCINE (4 - PPSV23 if available, else PCV20) [code = 65+ PNEUMOCOCCAL VACCINE (4 - PPSV23 if available, else PCV20)] Future Scheduled 2022-03-25 INFLUENZA VACCINE Method [facility] Test 14:48:42 [code = INFLUENZA VACCINE] Future Scheduled 2022-03-25 SHINGLES VACCINES (1 Met [facility] Test 14:48:42 of 2) [code = SHINGLES VACCINES (1 of 2)] Future Scheduled 2022-03-25 BREAST CANCER [facility] Test 14:48:42 SCREENING [code = BREAST CANCER SCREENING] Future Scheduled 2022-03-25 COLONOSCOPY SCREENING [facility] Test 14:48:42 [code = COLONOSCOPY SCREENING] Future Scheduled 2022-03-25 HEPATITIS B VACCINES Met [facility] Test 14:48:42 (1 of 3 - Risk 3-dose series) [code = HEPATITIS B VACCINES (1 of 3 - Risk 3-dose series)] Future Scheduled 2022-03-25 COVID-19 VACCINE (3 - [facility] Test 14:48:42 Booster for Pfizer series) [code = COVID-19 VACCINE (3 - Booster for Pfizer series)] Future Scheduled 2022-03-25 65+ [facility] Test 14:48:42 VACCINE (4 - PPSV23 if available, else PCV20) [code = 65+ PNEUMOCOCCAL VACCINE (4 - PPSV23 if available, else PCV20)] Future Scheduled 2022-03-25 INFLUENZA VACCINE [facility] Test 14:48:42 [code = INFLUENZA VACCINE] Future Scheduled 2022-03-25 SHINGLES VACCINES (1 Met [facility] Test 14:48:42 of 2) [code = SHINGLES VACCINES (1 of 2)] Future Scheduled 2022-03-25 BREAST CANCER [facility] Test 14:48:42 SCREENING [code = BREAST CANCER SCREENING] Future Scheduled 2022-03-25 COLONOSCOPY SCREENING [facility] Test 14:48:42 [code = COLONOSCOPY SCREENING] Future Scheduled 2022-03-25 HEPATITIS B VACCINES Met [facility] Test 14:48:42 (1 of 3 - Risk 3-dose series) [code = HEPATITIS B VACCINES (1 of 3 - Risk 3-dose series)] Future Scheduled 2022-03-25 COVID-19 VACCINE (3 - [facility] Test 14:48:42 Booster for Pfizer series) [code = COVID-19 VACCINE (3 - Booster for Pfizer series)] Future Scheduled 2022-03-25 65+ [facility]AL [facility] Test 14:48:42 VACCINE (4 - PPSV23 if available, else PCV20) [code = 65+ PNEUMOCOCCAL VACCINE (4 - PPSV23 if available, else PCV20)] Future Scheduled 2022-03-25 INFLUENZA VACCINE Method [facility] Test 14:48:42 [code = INFLUENZA VACCINE] Future Scheduled 2022-03-25 SHINGLES VACCINES (1 Met [facility] Test 14:48:42 of 2) [code = SHINGLES VACCINES (1 of 2)] Future Scheduled 2022-03-25 BREAST CANCER [facility] Test 14:48:42 SCREENING [code = BREAST CANCER SCREENING] Future Scheduled 2022-03-25 COLONOSCOPY SCREENING [facility] Test 14:48:42 [code = COLONOSCOPY SCREENING] Future Scheduled 2022-03-25 HEPATITIS B VACCINES Met [facility] Test 14:48:42 (1 of 3 - Risk 3-dose series) [code = HEPATITIS B VACCINES (1 of 3 - Risk 3-dose series)] Future Scheduled 2022-03-25 COVID-19 VACCINE (3 - [facility] Test 14:48:42 Booster for Pfizer series) [code = COVID-19 VACCINE (3 - Booster for Pfizer series)] Future Scheduled 2022-03-25 65[facility] 14:48:42 VACCINE (4 - PPSV23 if available, else PCV20) [code = 65+ PNEUMOCOCCAL VACCINE (4 - PPSV23 if available, else PCV20)] Future Scheduled 2022-03-25 INFLUENZA VACCINE Method [facility] Test 14:48:42 [code = INFLUENZA VACCINE] Future Scheduled 2022-03-25 SHINGLES VACCINES (1 Met [facility] Test 14:48:42 of 2) [code = SHINGLES VACCINES (1 of 2)] Future Scheduled 2022-03-25 BREAST CANCER [facility] Test 14:48:42 SCREENING [code = BREAST CANCER SCREENING] Future Scheduled 2022-03-25 COLONOSCOPY SCREENING [facility] Test 14:48:42 [code = COLONOSCOPY SCREENING] Future Scheduled 2022-03-25 HEPATITIS B VACCINES Met [facility] Test 14:48:42 (1 of 3 - Risk 3-dose series) [code = HEPATITIS B VACCINES (1 of 3 - Risk 3-dose series)] Future Scheduled 2022-03-25 COVID-19 VACCINE (3 - [facility] Test 14:48:42 Booster for Pfizer series) [code = COVID-19 VACCINE (3 - Booster for Pfizer series)] Future Scheduled 2022-03-25 65+ PNEUMOCOCCAL [facility] Test 14:48:42 VACCINE (4 - PPSV23 if available, else PCV20) [code = 65+ PNEUMOCOCCAL VACCINE (4 - PPSV23 if available, else PCV20)] Future Scheduled 2022-03-25 INFLUENZA VACCINE Method [facility] Test 14:48:42 [code = INFLUENZA VACCINE] Future Scheduled 2022-03-25 SHINGLES VACCINES (1 Met [facility] Test 14:48:42 of 2) [code = SHINGLES VACCINES (1 of 2)] Future Scheduled 2022-03-25 BREAST CANCER [facility] Test 14:48:42 SCREENING [code = BREAST CANCER SCREENING] Future Scheduled 2022-03-25 COLONOSCOPY SCREENING [facility] Test 14:48:42 [code = COLONOSCOPY SCREENING] Future Scheduled 2022-03-25 HEPATITIS B VACCINES Met [facility] Test 14:48:42 (1 of 3 - Risk 3-dose series) [code = HEPATITIS B VACCINES (1 of 3 - Risk 3-dose series)] Future Scheduled 2022-03-25 COVID-19 VACCINE (3 - Me [facility] Test 14:48:42 Booster for Pfizer series) [code = COVID-19 VACCINE (3 - Booster for Pfizer series)] Future Scheduled 2022-03-25 65+ [facility] Test 14:48:42 VACCINE (4 - PPSV23 if available, else PCV20) [code = 65+ PNEUMOCOCCAL VACCINE (4 - PPSV23 if available, else PCV20)] Future Scheduled 2022-03-25 INFLUENZA VACCINE Method [facility] Test 14:48:42 [code = INFLUENZA VACCINE] Future Scheduled 2022-03-25 SHINGLES VACCINES (1 Met [facility] Test 14:48:42 of 2) [code = SHINGLES VACCINES (1 of 2)] Future Scheduled 2022-03-25 BREAST CANCER [facility] Test 14:48:42 SCREENING [code = BREAST CANCER SCREENING] Future Scheduled 2022-03-25 COLONOSCOPY SCREENING Me [facility] Test 14:48:42 [code = COLONOSCOPY SCREENING] Future Scheduled 2022-03-25 HEPATITIS B VACCINES Met [facility] Test 14:48:42 (1 of 3 - Risk 3-dose series) [code = HEPATITIS B VACCINES (1 of 3 - Risk 3-dose series)] Future Scheduled 2022-03-25 COVID-19 VACCINE (3 - Me [facility] Test 14:48:42 Booster for Pfizer series) [code = COVID-19 VACCINE (3 - Booster for Pfizer series)] Future Scheduled 2022-03-25 65+ [facility]AL [facility] Test 14:48:42 VACCINE (4 - PPSV23 if available, else PCV20) [code = 65+ PNEUMOCOCCAL VACCINE (4 - PPSV23 if available, else PCV20)] Future Scheduled 2022-03-25 INFLUENZA VACCINE Method [facility] Test 14:48:42 [code = INFLUENZA VACCINE] Future Scheduled 2022-03-25 SHINGLES VACCINES (1 Met [facility] Test 14:48:42 of 2) [code = SHINGLES VACCINES (1 of 2)] Future Scheduled 2022-03-25 BREAST CANCER [facility] Test 14:48:42 SCREENING [code = BREAST CANCER SCREENING] Future Scheduled 2022-03-25 COLONOSCOPY SCREENING Me [facility] Test 14:48:42 [code = COLONOSCOPY SCREENING] Future Scheduled 2022-03-25 HEPATITIS B VACCINES Met [facility] Test 14:48:42 (1 of 3 - Risk 3-dose series) [code = HEPATITIS B VACCINES (1 of 3 - Risk 3-dose series)] Future Scheduled 2022-03-25 COVID-19 VACCINE (3 - Me [facility] Test 14:48:42 Booster for Pfizer series) [code = COVID-19 VACCINE (3 - Booster for Pfizer series)] Future Scheduled 2022-03-25 65+ [facility] 14:48:42 VACCINE (4 - PPSV23 if available, else PCV20) [code = 65+ PNEUMOCOCCAL VACCINE (4 - PPSV23 if available, else PCV20)] Future Scheduled 2022-03-25 INFLUENZA VACCINE [facility] Test 14:48:42 [code = INFLUENZA VACCINE] Future Scheduled 2022-03-25 SHINGLES VACCINES (1 Met [facility] Test 14:48:42 of 2) [code = SHINGLES VACCINES (1 of 2)] Future Scheduled 2022-03-25 BREAST CANCER [facility] Test 14:48:42 SCREENING [code = BREAST CANCER SCREENING] Future Scheduled 2022-03-25 COLONOSCOPY SCREENING [facility] Test 14:48:42 [code = COLONOSCOPY SCREENING] Future Scheduled 2022-03-25 HEPATITIS B VACCINES Met [facility] Test 14:48:42 (1 of 3 - Risk 3-dose series) [code = HEPATITIS B VACCINES (1 of 3 - Risk 3-dose series)] Future Scheduled 2022-03-25 COVID-19 VACCINE (3 - Me [facility] Test 14:48:42 Booster for Pfizer series) [code = COVID-19 VACCINE (3 - Booster for Pfizer series)] Future Scheduled 2022-03-25 65+ [facility]AL [facility] 14:48:42 VACCINE (4 - PPSV23 if available, else PCV20) [code = 65+ PNEUMOCOCCAL VACCINE (4 - PPSV23 if available, else PCV20)] Future Scheduled 2022-03-25 INFLUENZA VACCINE [facility] Test 14:48:42 [code = INFLUENZA VACCINE] Future Scheduled 2022-03-04 SHINGLES VACCINES (1 Met [facility] Test 14:03:57 of 2) [code = SHINGLES VACCINES (1 of 2)] Future Scheduled 2022-03-04 BREAST CANCER [facility] Test 14:03:57 SCREENING [code = BREAST CANCER SCREENING] Future Scheduled 2022-03-04 COLONOSCOPY SCREENING [facility] Test 14:03:57 [code = COLONOSCOPY SCREENING] Future Scheduled 2022-03-04 HEPATITIS B VACCINES Met [facility] Test 14:03:57 (1 of 3 - Risk 3-dose series) [code = HEPATITIS B VACCINES (1 of 3 - Risk 3-dose series)] Future Scheduled 2022-03-04 COVID-19 VACCINE (3 - Me [facility] Test 14:03:57 Booster for Pfizer series) [code = COVID-19 VACCINE (3 - Booster for Pfizer series)] Future Scheduled 2022-03-04 65+ [facility]AL [facility] 14:03:57 VACCINE (4 - PPSV23 if available, else PCV20) [code = 65+ PNEUMOCOCCAL VACCINE (4 - PPSV23 if available, else PCV20)] Future Scheduled 2022-03-04 INFLUENZA VACCINE Method [facility] Test 14:03:57 [code = INFLUENZA VACCINE] Future Scheduled 2022-03-04 SHINGLES VACCINES (1 Met [facility] Test 14:03:57 of 2) [code = SHINGLES VACCINES (1 of 2)] Future Scheduled 2022-03-04 BREAST CANCER [facility] Test 14:03:57 SCREENING [code = BREAST CANCER SCREENING] Future Scheduled 2022-03-04 COLONOSCOPY SCREENING [facility] Test 14:03:57 [code = COLONOSCOPY SCREENING] Future Scheduled 2022-03-04 HEPATITIS B VACCINES Met [facility] Test 14:03:57 (1 of 3 - Risk 3-dose series) [code = HEPATITIS B VACCINES (1 of 3 - Risk 3-dose series)] Future Scheduled 2022-03-04 COVID-19 VACCINE (3 - [facility] Test 14:03:57 Booster for Pfizer series) [code = COVID-19 VACCINE (3 - Booster for Pfizer series)] Future Scheduled 2022-03-04 65+ [facility]AL [facility] 14:03:57 VACCINE (4 - PPSV23 if available, else PCV20) [code = 65+ PNEUMOCOCCAL VACCINE (4 - PPSV23 if available, else PCV20)] Future Scheduled 2022-03-04 INFLUENZA VACCINE Method [facility] Test 14:03:57 [code = INFLUENZA VACCINE] Future Scheduled 2022-03-04 SHINGLES VACCINES (1 Met [facility] Test 14:03:57 of 2) [code = SHINGLES VACCINES (1 of 2)] Future Scheduled 2022-03-04 BREAST CANCER [facility] Test 14:03:57 SCREENING [code = BREAST CANCER SCREENING] Future Scheduled 2022-03-04 COLONOSCOPY SCREENING [facility] Test 14:03:57 [code = COLONOSCOPY SCREENING] Future Scheduled 2022-03-04 HEPATITIS B VACCINES Met [facility] Test 14:03:57 (1 of 3 - Risk 3-dose series) [code = HEPATITIS B VACCINES (1 of 3 - Risk 3-dose series)] Future Scheduled 2022-03-04 COVID-19 VACCINE (3 - [facility] Test 14:03:57 Booster for Pfizer series) [code = COVID-19 VACCINE (3 - Booster for Pfizer series)] Future Scheduled 2022-03-04 65+ PNEUMOCOCCAL [facility] Test 14:03:57 VACCINE (4 - PPSV23 if available, else PCV20) [code = 65+ PNEUMOCOCCAL VACCINE (4 - PPSV23 if available, else PCV20)] Future Scheduled 2022-03-04 INFLUENZA VACCINE Method [facility] Test 14:03:57 [code = INFLUENZA VACCINE] Future Scheduled 2022-03-04 SHINGLES VACCINES (1 Met [facility] Test 14:03:57 of 2) [code = SHINGLES VACCINES (1 of 2)] Future Scheduled 2022-03-04 BREAST CANCER [facility] Test 14:03:57 SCREENING [code = BREAST CANCER SCREENING] Future Scheduled 2022-03-04 COLONOSCOPY SCREENING [facility] Test 14:03:57 [code = COLONOSCOPY SCREENING] Future Scheduled 2022-03-04 HEPATITIS B VACCINES Met [facility] Test 14:03:57 (1 of 3 - Risk 3-dose series) [code = HEPATITIS B VACCINES (1 of 3 - Risk 3-dose series)] Future Scheduled 2022-03-04 COVID-19 VACCINE (3 - [facility] Test 14:03:57 Booster for Pfizer series) [code = COVID-19 VACCINE (3 - Booster for Pfizer series)] Future Scheduled 2022-03-04 65+ [facility]AL [facility] 14:03:57 VACCINE (4 - PPSV23 if available, else PCV20) [code = 65+ PNEUMOCOCCAL VACCINE (4 - PPSV23 if available, else PCV20)] Future Scheduled 2022-03-04 INFLUENZA VACCINE Method [facility] Test 14:03:57 [code = INFLUENZA VACCINE] Future Scheduled 2022-02-11 SHINGLES VACCINES (1 Met [facility] Test 13:39:12 of 2) [code = SHINGLES VACCINES (1 of 2)] Future Scheduled 2022-02-11 BREAST CANCER [facility] Test 13:39:12 SCREENING [code = BREAST CANCER SCREENING] Future Scheduled 2022-02-11 COLONOSCOPY SCREENING [facility] Test 13:39:12 [code = COLONOSCOPY SCREENING] Future Scheduled 2022-02-11 HEPATITIS B VACCINES Met [facility] Test 13:39:12 (1 of 3 - Risk 3-dose series) [code = HEPATITIS B VACCINES (1 of 3 - Risk 3-dose series)] Future Scheduled 2022-02-11 COVID-19 VACCINE (3 - [facility] Test 13:39:12 Booster for Pfizer series) [code = COVID-19 VACCINE (3 - Booster for Pfizer series)] Future Scheduled 2022-02-11 65+ [facility]OCCAL [facility] Test 13:39:12 VACCINE (4 - PPSV23 or PCV20) [code = 65+ PNEUMOCOCCAL VACCINE (4 - PPSV23 or PCV20)] Future Scheduled 2022-02-11 INFLUENZA VACCINE Method [facility] Test 13:39:12 [code = INFLUENZA VACCINE] Future Scheduled 2022-01-29 SHINGLES VACCINES (1 Met [facility] Test 14:07:20 of 2) [code = SHINGLES VACCINES (1 of 2)] Future Scheduled 2022-01-29 BREAST CANCER [facility] Test 14:07:20 SCREENING [code = BREAST CANCER SCREENING] Future Scheduled 2022-01-29 COLONOSCOPY SCREENING [facility] Test 14:07:20 [code = COLONOSCOPY SCREENING] Future Scheduled 2022-01-29 HEPATITIS B VACCINES Met [facility] Test 14:07:20 (1 of 3 - Risk 3-dose series) [code = HEPATITIS B VACCINES (1 of 3 - Risk 3-dose series)] Future Scheduled 2022-01-29 COVID-19 VACCINE (3 - [facility] Test 14:07:20 Booster for Pfizer series) [code = COVID-19 VACCINE (3 - Booster for Pfizer series)] Future Scheduled 2022-01-29 65+ PNEUMOCOCCAL [facility] Test 14:07:20 VACCINE (4 - PPSV23 or PCV20) [code = 65+ PNEUMOCOCCAL VACCINE (4 - PPSV23 or PCV20)] Future Scheduled 2022-01-29 INFLUENZA VACCINE Method [facility] Test 14:07:20 [code = INFLUENZA VACCINE] Future Scheduled 2022-01-29 SHINGLES VACCINES (1 Met [facility] Test 14:07:20 of 2) [code = SHINGLES VACCINES (1 of 2)] Future Scheduled 2022-01-29 BREAST CANCER [facility] Test 14:07:20 SCREENING [code = BREAST CANCER SCREENING] Future Scheduled 2022-01-29 COLONOSCOPY SCREENING [facility] Test 14:07:20 [code = COLONOSCOPY SCREENING] Future Scheduled 2022-01-29 HEPATITIS B VACCINES Met [facility] Test 14:07:20 (1 of 3 - Risk 3-dose series) [code = HEPATITIS B VACCINES (1 of 3 - Risk 3-dose series)] Future Scheduled 2022-01-29 COVID-19 VACCINE (3 - [facility] Test 14:07:20 Booster for Pfizer series) [code = COVID-19 VACCINE (3 - Booster for Pfizer series)] Future Scheduled 2022-01-29 65+ PNEUMOCOCCAL [facility] Test 14:07:20 VACCINE (4 - PPSV23 or PCV20) [code = 65+ PNEUMOCOCCAL VACCINE (4 - PPSV23 or PCV20)] Future Scheduled 2022-01-29 INFLUENZA VACCINE Method [facility] Test 14:07:20 [code = INFLUENZA VACCINE] Future Scheduled 2022-01-29 SHINGLES VACCINES (1 Met [facility] Test 14:07:20 of 2) [code = SHINGLES VACCINES (1 of 2)] Future Scheduled 2022-01-29 BREAST CANCER [facility] Test 14:07:20 SCREENING [code = BREAST CANCER SCREENING] Future Scheduled 2022-01-29 COLONOSCOPY SCREENING [facility] Test 14:07:20 [code = COLONOSCOPY SCREENING] Future Scheduled 2022-01-29 HEPATITIS B VACCINES Met [facility] Test 14:07:20 (1 of 3 - Risk 3-dose series) [code = HEPATITIS B VACCINES (1 of 3 - Risk 3-dose series)] Future Scheduled 2022-01-29 COVID-19 VACCINE (3 - [facility] Test 14:07:20 Booster for Pfizer series) [code = COVID-19 VACCINE (3 - Booster for Pfizer series)] Future Scheduled 2022-01-29 65+ PNEUMOCOCCAL [facility] Test 14:07:20 VACCINE (4 - PPSV23 or PCV20) [code = 65+ PNEUMOCOCCAL VACCINE (4 - PPSV23 or PCV20)] Future Scheduled 2022-01-29 INFLUENZA VACCINE Method [facility] Test 14:07:20 [code = INFLUENZA VACCINE] Future Scheduled 2022-01-29 SHINGLES VACCINES (1 Met [facility] Test 14:07:20 of 2) [code = SHINGLES VACCINES (1 of 2)] Future Scheduled 2022-01-29 BREAST CANCER [facility] Test 14:07:20 SCREENING [code = BREAST CANCER SCREENING] Future Scheduled 2022-01-29 COLONOSCOPY SCREENING [facility] Test 14:07:20 [code = COLONOSCOPY SCREENING] Future Scheduled 2022-01-29 HEPATITIS B VACCINES Met [facility] Test 14:07:20 (1 of 3 - Risk 3-dose series) [code = HEPATITIS B VACCINES (1 of 3 - Risk 3-dose series)] Future Scheduled 2022-01-29 COVID-19 VACCINE (3 - [facility] Test 14:07:20 Booster for Pfizer series) [code = COVID-19 VACCINE (3 - Booster for Pfizer series)] Future Scheduled 2022-01-29 65+ PNEUMOCOCCAL [facility] Test 14:07:20 VACCINE (4 - PPSV23 or PCV20) [code = 65+ PNEUMOCOCCAL VACCINE (4 - PPSV23 or PCV20)] Future Scheduled 2022-01-29 INFLUENZA VACCINE Method [facility] Test 14:07:20 [code = INFLUENZA VACCINE] Future Scheduled 2022-01-20 SHINGLES VACCINES (1 Met [facility] Test 06:12:34 of 2) [code = SHINGLES VACCINES (1 of 2)] Future Scheduled 2022-01-20 Screening for [facility] Test 06:12:34 malignant neoplasm of cervix (procedure) [code = 516590579] Future Scheduled 2022-01-20 BREAST CANCER [facility] Test 06:12:34 SCREENING [code = BREAST CANCER SCREENING] Future Scheduled 2022-01-20 COLONOSCOPY SCREENING [facility] Test 06:12:34 [code = COLONOSCOPY SCREENING] Future Scheduled 2022-01-20 HEPATITIS B VACCINES Met [facility] Test 06:12:34 (1 of 3 - Risk 3-dose series) [code = HEPATITIS B VACCINES (1 of 3 - Risk 3-dose series)] Future Scheduled 2022-01-20 COVID-19 VACCINE (3 - [facility] Test 06:12:34 Booster for Pfizer series) [code = COVID-19 VACCINE (3 - Booster for Pfizer series)] Future Scheduled 2022-01-20 65+ PNEUMOCOCCAL [facility] Test 06:12:34 VACCINE (4 - PPSV23 or PCV20) [code = 65+ PNEUMOCOCCAL VACCINE (4 - PPSV23 or PCV20)] Future Scheduled 2022-01-20 INFLUENZA VACCINE Method [facility] Test 06:12:34 [code = INFLUENZA VACCINE] Future Scheduled 2022-01-16 SHINGLES VACCINES (1 Met [facility] Test 12:09:25 of 2) [code = SHINGLES VACCINES (1 of 2)] Future Scheduled 2022-01-16 Screening for [facility] Test 12:09:25 malignant neoplasm of cervix (procedure) [code = [id number]] Future Scheduled 2022-01-16 BREAST CANCER [facility] Test 12:09:25 SCREENING [code = BREAST CANCER SCREENING] Future Scheduled 2022-01-16 COLONOSCOPY SCREENING [facility] Test 12:09:25 [code = COLONOSCOPY SCREENING] Future Scheduled 2022-01-16 HEPATITIS B VACCINES Met [facility] Test 12:09:25 (1 of 3 - Risk 3-dose series) [code = HEPATITIS B VACCINES (1 of 3 - Risk 3-dose series)] Future Scheduled 2022-01-16 COVID-19 VACCINE (3 - [facility] Test 12:09:25 Booster for Pfizer series) [code = COVID-19 VACCINE (3 - Booster for Pfizer series)] Future Scheduled 2022-01-16 65+ PNEUMOCOCCAL [facility] Test 12:09:25 VACCINE (4 - PPSV23 or PCV20) [code = 65+ PNEUMOCOCCAL VACCINE (4 - PPSV23 or PCV20)] Future Scheduled 2022-01-16 INFLUENZA VACCINE Method [facility] Test 12:09:25 [code = INFLUENZA VACCINE] Future Scheduled 2022-01-14 SHINGLES VACCINES (1 Met [facility] Test 04:11:46 of 2) [code = SHINGLES VACCINES (1 of 2)] Future Scheduled 2022-01-14 Screening for [facility] Test 04:11:46 malignant neoplasm of cervix (procedure) [code = [id number]] Future Scheduled 2022-01-14 BREAST CANCER [facility] Test 04:11:46 SCREENING [code = BREAST CANCER SCREENING] Future Scheduled 2022-01-14 COLONOSCOPY SCREENING [facility] Test 04:11:46 [code = COLONOSCOPY SCREENING] Future Scheduled 2022-01-14 HEPATITIS B VACCINES Met [facility] Test 04:11:46 (1 of 3 - Risk 3-dose series) [code = HEPATITIS B VACCINES (1 of 3 - Risk 3-dose series)] Future Scheduled 2022-01-14 COVID-19 VACCINE (3 - [facility] Test 04:11:46 Booster for Pfizer series) [code = COVID-19 VACCINE (3 - Booster for Pfizer series)] Future Scheduled 2022-01-14 65+ PNEUMOCOCCAL [facility] Test 04:11:46 VACCINE (4 - PPSV23 or PCV20) [code = 65+ PNEUMOCOCCAL VACCINE (4 - PPSV23 or PCV20)] Future Scheduled 2022-01-14 INFLUENZA VACCINE Method [facility] Test 04:11:46 [code = INFLUENZA VACCINE] Future Scheduled 2021-08-26 Screening for [facility] Test 13:02:23 malignant neoplasm of cervix (procedure) [code = [id number]] Future Scheduled 2021-08-26 BREAST CANCER [facility] Test 13:02:23 SCREENING [code = BREAST CANCER SCREENING] Future Scheduled 2021-08-26 COLONOSCOPY SCREENING [facility] Test 13:02:23 [code = COLONOSCOPY SCREENING] Future Scheduled 2021-08-26 Screening for [facility] Test 13:02:23 malignant neoplasm of lung (procedure) [code = [id number]] Future Scheduled 2021-08-26 SHINGLES VACCINES (#1) [facility] Test 13:02:23 [code = SHINGLES VACCINES (#1)] Future Scheduled 2021-08-26 COVID-19 VACCINE (3 - [facility] Test 13:02:23 Pfizer risk 4-dose series) [code = COVID-19 VACCINE (3 - Pfizer risk 4-dose series)] Future Scheduled 2021-08-26 65+ [facility]CCAL [facility] 13:02:23 VACCINE (4 of 4 - PPSV23) [code = 65+ PNEUMOCOCCAL VACCINE (4 of 4 - PPSV23)] Future Scheduled 2021-08-26 INFLUENZA VACCINE Method [facility] Test 13:02:23 [code = INFLUENZA VACCINE] Encounters Start End Encounter Admission Attending Care Care Encounter Source Date/Time Date/Time Type Type Clinicians Facility Department ID 2022-02-18 Outpatient CHW W [id number] [place] 14:30:[address] [place] [address] and [facility] 2021-07-14 Outpatient SADIKOVIC, [facility] [id number] [place] 09:33:51 [facility] 2021-06-02 Outpatient HEMATPOUR, [facility] [id number] [place] 13:58:59 [facility] 2021-04-28 Outpatient HEMATPOUR, [facility] [id number] [place] 11:21:22 [facility] 2021-03-20 Emergency [facility] [id number] Univers 16:07:40 [facility] 2020-12-12 Outpatient HEMATPOUR, [facility] [id number] [place] 08:16:[facility] 2020-10-31 Outpatient HEMATPOUR, [facility] [id number] [place] 09:44:50 [facility] Healt 2020-09-30 Outpatient HEMATPOUR, [facility] [id number] [place] 13:16:03 [facility] 2022-05-20 2022-05-20 Telephone [facility], UNIVERSIT 1.2.840.114 [id number] Univers 00:00:00 00:00:00 [facility] 350.1.13.10 i ty of CLINICS 4.2.7.2.686 [facility] [id number] [place] [address] Branch 2022-05-10 2022-05-10 Emergency X BYRON, [facility] ERT [id number] Univers 10:30:00 16:31:00 HOME [facility] 2022-05-10 2022-05-10 Emergency Eckert, TRAUMA 1.2.840.114 [id number] Univers 10:30:00 16:31:00 [facility] 350.1.13.10 [place] [id number] [facility] 014 Branch 2022-05-10 2022-05-10 Telephone [facility] 1.2.840.114 [id number] Univers 00:00:00 00:00:00 [facility] 350.1.13.10 i [place] [id number] [address] 2022-05-08 2022-05-08 Emergency [facility] [id number] Univers 16:18:00 18:42:00 THERESA [facility] 2022-05-08 2022-05-08 Emergency [facility] 1.2.840.114 [id number] Univers 16:18:00 18:42:00 Theresa BULLOCK 350.1.13.10 ity of [place] 4.2.7.2.686 [facility] [id number] [address] 2022-05-07 2022-05-07 Telephone [facility] 1.2.840.114 [id number] Univers 00:00:00 00:00:00 [facility] 350.1.13.10 i [place] [id number] [address] 2022-05-06 2022-05-06 Emergency [facility] [id number] Univers 14:13:00 18:19:00 [facility] 2022-05-06 2022-05-06 Emergency [facility] 1.2.056.328 [id number] Univers 14:13:00 18:19:00 Anette BULLOCK 350.1.13.10 ity of [place] 4.2.7.2.686 [facility] [id number] [address] 2022-05-06 2022-05-06 Telephone [facility] 1.2.840.114 [id number] Univers 00:00:00 00:00:00 [facility] 350.1.13.10 i [place] [id number] [address] 2022-04-22 2022-04-22 Emergency [facility] [id number] Univers 13:55:00 17:00:00 PAULETTE ity [facility] 2022-04-22 2022-04-22 Emergency [facility] 1.2.134.869 [id number] Univers 13:55:00 17:00:00 Paulette S DUP[place] 350.1.13.10 i [place] [id number] [address] 2022-04-07 2022-04-07 Outpatient [facility] [id number] Univers 20:40:00 20:40:00 ATTENDING ity [facility] 2022-04-07 2022-04-07 Telephone Devin, 1.2.840.2 [id number] Univers 00:00:00 00:00:00 Robbi R 76016.1.1 i ty of 3.104.2.7 [place] .3.359404 Medica l .8 [place] 2022-03-05 2022-03-05 Shackler Santiago Cardenas 1.2.840.1 [id number] Univers 13:45:00 14:00:00 Visit [facility] 27611.1.1 ity of 3.104.2.7 [place] .3.106928 Medica l .8 [place] 2022-03-05 2022-03-05 Office Ronald [facility] 1.2.104.157 [id number] Univers 13:00:00 13:30:00 Visit [facility] 350.1.13.10 i [place] [id number] [address] 2022-03-05 2022-03-05 Outpatient R [facility] [id number] Univers 13:00:00 13:00:00 SANTIAGO barbosa [facility] 2022-02-26 2022-02-26 Outpatient R [facility] [id number] Univers 08:30:00 08:30:00 SANTIAGO barbosa [facility] 2022-02-26 2022-02-26 [facility] [id number] Univers 08:30:00 08:30:00 SANTIAGO barbosa [facility] 2022-02-17 2022-02-17 Transition Stevo, 1.2.840.2 [id number] Univers 00:00:00 00:00:00 of Care Isaias Arredondo 07969.1.1 it y of 3.104.2.7 [place] .3.851647 Medica l .8 [place] 2022-02-10 2022-02-16 Inpatient X [facility] [id number] Univers 22:59:00 19:27:00 PETER ity of [facility] 2022-02-10 2022-02-16 Hospital Reilly Means 1.2.840.1 [id number] Univers 22:59:00 19:27:00 Encounter Ofe Shields 33343.1.1 ity of [place] 3.[place].2.7 [place] .3.283091 Medica l .8 [place] 2022-02-11 2022-02-11 Telephone East, 1.2.840.8 [id number] Univers 00:00:00 00:00:00 Santiago 59038.1.1 ity of 3.104.2.7 [place] .3.100455 Medica l .8 [place] 2022-02-10 2022-02-10 Travel 1.2.840.1 1.2.416.320 [id number] Univers 00:00:00 00:00:00 75289.1.1 350.1.13.10 ity of 3.104.2.7 4[place].3.698 [place] .3.197692 084.8 Medica l .8 [place] 2022-01-30 2022-01-30 Telephone East, 1.2.840.0 [id number] Univers 00:00:00 00:00:00 Santiago 86384.1.1 ity of 3.104.2.7 [place] .3.279791 Medica l .8 [place] 2022-01-06 2022-01-06 Orders Doctor FERMIN 1.2.840.114 [id number] Univers 00:00:00 00:00:00 Only Unassigned, JACKELINE 350.1.13.10 ity of [place] [facility] 4.2.7.2.686 Yomi as [id number] [facility] 009 Branch 2021-12-25 2021-12-25 Orders Doctor FERMIN 1.2.840.114 [id number] Univers 00:00:00 00:00:00 Only Unassigned, JACKELINE 350.1.13.10 ity of [place] [facility] 4.2.7.2.686 Yomi as [id number] [facility] 009 [place] 2021-12-12 2021-12-[address] X Bill COLES [facility] ERT [id number] Univers 23:53:00 01:52:00 ity of [facility] 2021-12-12 2021-12-[address] [facility] 1.2.840.114 [id number] Univers 23:53:00 01:52:00 Kiersten BULLOCK 350.1.13.10 i ty [place].686 [place] [id number] [facility] 084 Branch 2021-11-20 2021-11-20 Shackler [facility] UNIVERSIT 1.2.840.114 [id number] Univers 09:45:00 10:00:00 Visit [facility] 350.1.13.10 ity of [place] [id number] [facility] 316 Branch 2021-11-20 2021-11-20 Office [facility] 1.2.893.938 [id number] Univers 08:30:00 09:00:00 Visit [facility] 350.1.13.10 i ty of [place] [id number] [facility] 089 Branch 2021-11-20 2021-11-20 Out[facility] [id number] Univers 08:30:00 08:30:00 SANTIAGO barbosa [facility] 2021-11-20 2021-11-20 Outpatient R [facility] [id number] Univers 08:30:00 08:30:00 SANTIAGO barbosa [facility] 2021-11-20 2021-11-20 Outpatient R [facility] [id number] Univers 08:30:00 08:30:00 SANTIAGO charlie [facility] 2021-11-20 2021-11-20 Outpatient R [facility] [id number] Univers 08:30:00 08:30:00 SANTIAGO charlie [facility] 2021-10-24 2021-10-24 Emergency [facility] [id number] Univers 16:27:00 22:26:00 CHARITY charlie [facility] 2021-10-24 2021-10-24 Emergency [facility] [id number] Univers 16:27:00 22:26:00 CHARITY barbosa [facility] 2021-10-24 2021-10-[address] [facility] 1.2.840. 114 [id number] Univers 16:27:00 22:26:00 [facility] 350.1.13.[address] [facility] 4.2.7.2.[address] [facility] [id number] [address] 2021-10-23 2021-10-24 Emergency X WALKER, [facility] ERT [id number] Univers 20:22:00 02:57:00 CHARITY barbosa [facility] 2021-10-23 2021-10-24 Emergency [facility] 1.2.188.640 [id number] Univers 20:22:00 02:57:00 Charity [facility] 350.1.13.[address] [facility] 4.2.7.2.[address] [place] [id number] 2021-09-07 2021-09-07 Outpatient R SELF, [facility] [id number] Univers 08:00:00 08:00:00 GADIEL barbosa o f [facility] 2021-09-07 2021-09-07 Outpatient R SELF, [facility] [id number] Univers 08:00:00 08:00:00 GADIEL ity o f [facility] 2021-08-21 2021-08-21 Outpatient R [facility] [id number] Univers 10:45:00 10:45:00 SANTIAGO barbosa [facility] 2021-08-21 2021-08-21 Shackler Santiago Cardenas 1.2.840.1 [id number] Univers 10:45:00 10:45:00 Visit [facility] 33375.1.1 ity of 3.104.2.7 [place] .3.178803 Medica l .8 [place] 2021-08-21 2021-08-21 Office East, 1.2.840.8 [id number] Univers 08:30:00 09:00:00 Visit Santiago 48152.1.1 ity of 3.104.2.7 [place] .3.412484 Medica l .8 [place] 2021-08-21 2021-08-21 Office [facility] 1.2.457.262 [id number] Univers 08:30:00 09:00:00 Visit Santiago [facility] 350.1.13.10 i ty of CL[place] 4[place] [id number] [facility] 089 [place] 2021-08-21 2021-08-21 Outpatient R [facility] [id number] Univers 08:30:00 08:30:00 SANTIAGO barbosa [facility] 2021-08-21 2021-08-21 Travel 1.2.840.1 1.2.503.451 [id number] Univers 00:00:00 00:00:00 32455.1.1 350.1.13.10 ity of 3.104.2.7 4[place].3.698 [place] .3.738156 084.8 Medica l .8 [place] 2021-08-14 2021-08-14 Telephone East, 1.2.840.7 [id number] Univers 00:00:00 00:00:00 Santiago 78256.1.1 ity of 3.104.2.7 [place] .3.006279 Medica l .8 [place] 2021-08-13 2021-08-13 Telephone Ronald, 1.2.840.3 [id number] Univers 00:00:00 00:00:00 Santiago 53052.1.1 ity of 3.104.2.7 [place] .3.892104 Medica l .8 Branch 2021-08-11 2021-08-11 Outpatient [facility] [id number] Univers 08:00:00 08:00:00 [facility] 2021-08-05 2021-08-05 Inpatient RAUL Lund, [facility] OUTD [id number] [facility] 05:24:00 05:24:00 Mike 31 [facility] 2021-07-20 2021-07-20 Outpatient [facility] [id number] Univers 10:00:00 10:00:00 [facility] 2021-07-14 2021-07-14 Office Pankaj, UTP 6400 1.2.840.114 [id number] [place] 08:45:00 09:34:[address] 350.1.13.58 Health 9.2.7.2.686 [id number] 1 2021-07-09 2021-07-09 Telephone Hematpour, UTP 6400 1.2.840.114 [id number] [place] 00:00:00 00:00:[address] 350.1.13.58 Health 9.2.7.2.686 [id number] 1 2021-07-09 2021-07-09 Telephone Hematpour, UTP 6400 1.2.840.114 [id number] [place] 00:00:00 00:00:[address] 350.1.13.58 Health 9.2.7.2.686 [id number] 1 2021-07-03 2021-07-03 Outpatient [facility] [id number] Univers 08:00:00 08:00:00 [facility] 2021-06-17 2021-06-17 Inpatient RAUL Lund, HCACL INTE.02 [id number] [facility] 10:56:00 14:36:00 Mike 47 [facility] 2021-06-15 2021-06-15 Outpatient R SELF, [facility] [id number] Univers 10:15:00 11:07:21 GADIEL rodas [facility] 2021-06-15 2021-06-15 Outpatient R SELF, [facility] [id number] Univers 10:15:00 10:15:00 GADIEL barbosa o f [facility] 2021-06-15 2021-06-15 Outpatient R SELF, [facility] [id number] Univers 10:15:00 10:15:00 GADIEL rodas [facility] 2021-06-15 2021-06-15 Orders Doctor 1.2.840.6 [id number] Univers 00:00:00 00:00:00 Only Unassigned, 09493.1.1 ity of [place] 3.104.2.7 [place] .3.631019 Medica l .8 Branch 2021-06-15 2021-06-15 Travel 1.2.840.1 1.2.999.219 [id number] Univers 00:00:00 00:00:00 80611.1.1 350.1.13.10 ity of 3.104.2.7 4[place].7.3.698 [place] .3.334349 084.8 Medica l .8 Branch 2021-06-11 2021-06-11 Refill East, UNIVERSIT 1.2.123.937 [id number] Univers 00:00:00 00:00:00 [facility] 350.1.13.10 i ty of [place] 4[place] [id number] [facility] porfirio 089 Branch 2021-06-11 2021-06-11 Refill East, 1.2.840.7 [id number] Univers 00:00:00 00:00:00 Santiago 14581.1.1 ity of 3.104.2.7 [place] .3.126805 Medica l .8 Branch 2021-06-05 2021-06-05 Outpatient R EAST, [facility] [id number] Univers 09:00:00 09:00:00 SANTIAGO ity of [facility] 2021-06-02 2021-06-02 Telephone East, UNIVERSIT 1.2.840.114 [id number] Univers 00:00:00 00:00:00 Santiago Y HEALTH 350.1.13.10 i ty of CL[place] 4.2.[place].2.[place] [id number] [facility] 089 [place] 2021-06-02 2021-06-02 Telephone East, 1.2.840.4 [id number] Univers 00:00:00 00:00:00 Santiago 77621.1.1 ity of 3.104.2.7 [place] .3.883884 Medica l .8 Branch 2021-05-29 2021-05-29 Telephone East, 1.2.840.5 [id number] Univers 00:00:00 00:00:00 Santiago 34164.1.1 ity of 3.104.2.7 [place] .3.227453 Medica l .8 [place] 2021-05-29 2021-05-29 Telephone East, 1.2.840.9 [id number] [id number] Univers 00:00:00 00:00:00 Santiago 90285.1.1 ity of 3.104.2.7 [place] .3.405799 Medica l .8 [place] 2021-05-25 2021-05-25 Outpatient R SELF, [facility] [id number] Univers 08:00:00 08:00:00 GADIEL barbosa o f [facility] 2021-04-29 2021-04-29 Outpatient R LALA, [facility] [id number] Univers 08:00:00 08:00:00 NIKOALI barbosa of [facility] 2021-04-28 2021-04-28 Telephone [facility], UTP 6400 1.2.840.114 [id number] [place] 00:00:00 00:00:00 Beverly RUIZ 350.1.13.58 Health 9.2.7.2.686 [id number] 1 2021-04-28 2021-04-28 Telephone Jailyn, 1.2.840.3 [id number] Methodi 00:00:00 00:00:[address] 3.430.2.7 Hospit a .3.537341 l .8 2021-03-31 2021-03-31 Orders Carol Ann, 1.2.840.1 [id number] Methodi 00:00:00 00:00:00 Only Sarai Lieberman 95185.1.1 979 s t 3.430.2.7 Hospit a .3.330217 l .8 2021-03-30 2021-03-30 [address] [facility] [id number] Univers 08:45:00 08:45:00 GADIEL vogel [facility] 2021-03-24 2021-03-24 Telephone Jailyn, 1.2.840.3 [id number] Methodi 00:00:00 00:00:[address] 3.430.2.7 Hospit a .3.603732 l .8 2021-02-13 2021-02-13 Telephone Ronald, 1.2.840.0 [id number] Univers 00:00:00 00:00:00 Santiago 71851.1.1 ity of 3.104.2.7 [place] .3.725875 Medica l .8 [place] 2021-01-28 2021-01-28 Out[facility] [id number] Univers 08:45:00 09:37:00 NIKOLAI barbosa of [facility] 2021-01-28 2021-01-28 Travel 1.2.840.1 1.2.142.488 [id number] [id number] Univers 00:00:00 00:00:00 35776.1.1 350.1.13.10 ity of 3.104.2.7 [place].3.698 [place] .3.124233 084.8 Medica l .8 [place] 2021-01-19 2021-01-19 Telephone Pelletier, 1.2.840.1 [id number] Methodi 00:00:00 00:00:[address] 3.430.2.7 Hospit a .3.624997 l .8 2021-01-04 2021-01-04 Letter Shelia, 1.2.840.9 [id number] Univers 00:00:00 00:00:00 (Out) Dagoberto H 52997.1.1 ity of 3.104.2.7 [place] .3.405584 Medica l .8 [place] 2021-01-04 2021-01-04 Letter Shelia, 1.2.840.8 [id number] 696 Univers 00:00:00 00:00:00 (Out) Dagoberto H 29515.1.1 ity of 3.104.2.7 [place] .3.254320 Medica l .8 Branch 2021-01-03 2021-01-03 Dmitry Bass, 1.2.840.4 [id number] 790 Univers 00:00:00 00:00:00 (Out) Dagoberto H 17560.1.1 ity of 3.104.2.7 [place] .3.391030 Medica l .8 Branch 2021-01-03 2021-01-03 Letter hSelia, 1.2.840.6 [id number] 790 Univers 00:00:00 00:00:00 (Out) Dagoberto H 71661.1.1 ity of 3.104.2.7 [place] .3.341259 Medica l .8 Branch 2021-01-02 2021-01-02 Outpatient R [facility] [id number] Univers 13:40:00 13:40:00 ity of [facility] 2021-01-02 2021-01-02 Laboratory [place] 1.2.840.2 [id number] Univers 12:14:13 12:57:34 Only Lab, [place] 04667.1.1 ity of 3.104.2.7 [place] .3.625486 Medica l .8 [place] 2021-01-02 2021-01-02 Laboratory [place] Fr[place] 1.2.840.5 [id number] [id number] Univers 12:14:13 12:57:34 Only Lab[place] 63[address].1.1 ity of 3.104.2.7 [place] .3.053135 Medica l .8 [place] 2021-01-02 2021-01-02 Travel 1.2.840.1 1.2.033.241 2529 2306 Univers 00:00:00 00:00:00 34469.1.1 350.1.13.10 ity of 3.104.2.7 4[place].3.698 [place] .3.146151 084.8 Medica l .8 [place] 2021-01-02 2021-01-02 Letter Doctor 1.2.840.9 [id number] Univers 00:00:00 00:00:00 (Out) Unassigned, 15964.1.1 ity of [place] 3.104.2.7 [place] .3.154614 Medica l .8 [place] 2021-01-02 2021-01-02 Letter Doctor 1.2.840.3 [id number] 946 Univers 00:00:00 00:00:00 (Out) Unassigned, 67104.1.1 ity of [place] 3.104.2.7 [place] .3.341865 Medica l .8 [place] 2021-01-02 2021-01-02 Travel 1.2.840.1 1.2.606.913 9749 2306 Univers 00:00:00 00:00:00 16921.1.1 350.1.13.10 ity of 3.104.2.7 4[place]7.3.698 [place] .3.959554 084.8 Medica l .8 [place] 2021-01-02 2021-01-02 Letter Doctor 1.2.840.4 [id number] 948 Univers 00:00:00 00:00:00 (Out) Unassigned, 08528.1.1 ity of [place] 3.104.2.7 [place] .3.957964 Medica l .8 [place] 2021-01-02 2021-01-02 Letter Doctor 1.2.840.6 [id number] 27453 946 Univers 00:00:00 00:00:00 (Out) Unassigned, 86241.1.1 ity of [place] 3.104.2.7 [place] .3.526142 Medica l .8 [place] 2020-12-22 2020-12-22 Telephone Beltran, 1.2.840.7 [id number] 862 32370 Univers 00:00:00 00:00:00 Eligionda R 14938.1.1 i ty of 3.104.2.7 [place] .3.337620 Medica l .8 [place] 2020-12-22 2020-12-22 Telephone Beltran, 1.2.840.9 [id number] 862 65049 Univers 00:00:00 00:00:00 Robbi Hairston 36862.1.1 i ty of 3.104.2.7 [place] .3.373112 Medica l .8 [place] 2020-12-12 2020-12-12 Office Hematpour, UTP 6400 1.2.840.114 12 [id number] [place] 07:42:02 08:18:[facility] [facility] 350.1.13.58 Health 9.2.7.2.686 [id number] 1 2020-12-12 2020-12-12 Office Hematpour, UTP 6400 1.2.840.114 12 [id number] 07:42:02 08:18:50 Visit [facility] [address] 350.1.13.58 9.2.7.2.686 [id number] 1 2020-12-09 2020-12-09 Telephone [facility], 1.2.840.1 [id number] Methodi 00:00:00 00:00:00 Sarai Lieberman 74715.1.1 316 s t 3.430.2.7 Hospit a .3.668189 l .8 2020-12-08 2020-12-08 [facility], 1.2.840.1 [id number] 2100 533508 Methodi 12:35:54 23:59:00 Encounter Ray [address]36.1.[address] 3.430.2.7 Hospit a .3.823168 l .8 2020-12-08 2020-12-08 Lab Jailyn, 1.2.840.1 [id number] 59591 39656 Methodi 17:25:00 17:30:[address] 3.430.2.7 Hospit a .3.371297 l .8 2020-12-08 2020-12-08 Office Jailyn, 1.2.840.1 [id number] 04367 10409 Methodi 10:30:00 11:39:56 Visit Ray 23919.1.[address] 3.430.2.7 Hospit a .3.309659 l .8 2020-12-08 2020-12-08 Travel 1.2.840.1 1.2.446.177 8675 816090 Methodi 00:00:00 00:00:[address] 3.430.2.7 0.2.7.3.698 Ho spita .3.030633 084.8 l .8 2020-12-02 2020-12-02 Shackler Santiago Cardenas 1.2.840.1 [id number] Univers 10:20:06 10:36:19 Visit [facility] 66081.1.1 ity of 3.104.2.7 [place] .3.341699 Medica l .8 [place] 2020-12-02 2020-12-02 Shackler Santiago Cardenas 1.2.840.1 [id number] Univers 10:20:06 10:36:19 Visit [facility] 47416.1.1 ity of 3.104.2.7 [place] .3.906037 Medica l .8 [place] 2020-12-02 2020-12-02 Shackler [facility] UNIVERSIT 1.2.840.114 8 [id number] 10:20:06 10:36:19 Visit [facility] 350.1.13.10 [facility] 4.2.7.2.686 [id number] [facility] 2020-12-02 2020-12-02 Office Ronald, 1.2.840.0 [id number] 528 Univers 08:31:37 09:01:37 Visit Santiago 36247.1.1 ity of 3.104.2.7 [place] .3.448917 Medica l .8 [place] 2020-12-02 2020-12-02 [facility] [id number] Univers 09:00:00 09:00:00 SANTIAGO ity of [facility] 2020-11-25 2020-11-25 Office Devin, 1.2.840.8 [id number] 865 Univers 11:06:30 11:58:14 Visit Robbi Hairston 23094.1.1 i ty of 3.104.2.7 [place] .3.228670 Medica l .8 [place] 2020-11-25 2020-11-25 Office Devin 1.2.840.4 [id number] 73395 865 Univers 11:06:30 11:58:14 Visit Robbi Hairston 45694.1.1 i ty of 3.104.2.7 [place] .3.451479 Medica l .8 [place] 2020-11-25 2020-11-25 [facility] 1.2.840.114 [id number] 65 11:06:30 11:58:14 Visit Robbi Hairston [facility]AINER 350.1.13.10 [facility] 4.2.7.2.686 MATERNAL [id number] & CHILD [address] [place] [address] 2020-11-25 2020-11-25 Outpatient R [facility] [id number] Univers 11:00:00 11:00:00 ity of [facility] 2020-11-25 2020-11-25 Telephone Devin 1.2.840.3 [id number] 855 [id number] Univers 00:00:00 00:00:00 Robbi Hairston 06942.1.1 i ty of 3.104.2.7 [place] .3.585539 Medica l .8 [place] 2020-11-25 2020-11-25 Refill East, 1.2.840.8 [id number] 58117 592 Univers 00:00:00 00:00:00 Santiago 60065.1.1 ity of 3.104.2.7 [place] .3.032166 Medica l .8 [place] 2020-11-25 2020-11-25 Travel 1.2.840.1 1.2.908.012 0353 0247 Univers 00:00:00 00:00:00 29141.1.1 350.1.13.10 ity of 3.104.2.7 4.2[place]7.3.698 [place] .3.503972 084.8 Medica l .8 [place] 2020-11-25 2020-11-25 Orders Doctor 1.2.840.5 [id number] 45807 064 Univers 00:00:00 00:00:00 Only Unassigned, 92242.1.1 ity of [place] 3.104.2.7 [place] .3.276197 Medica l .8 [place] 2020-11-25 2020-11-25 Telephone Beltran, 1.2.840.0 [id number] 855 14829 Univers 00:00:00 00:00:00 Robbi Hairston 52184.1.1 i ty of 3.104.2.7 [place] .3.425521 Medica l .8 [place] 2020-11-25 2020-11-25 Refill East, 1.2.840.9 [id number] 88334 592 Univers 00:00:00 00:00:00 Santiago 45743.1.1 ity of 3.104.2.7 [place] .3.167140 Medica l .8 [place] 2020-11-25 2020-11-25 Travel 1.2.840.1 1.2.786.217 5814 0247 Univers 00:00:00 00:00:00 47874.1.1 350.1.13.10 ity of 3.104.2.7 4.2.7.3.698 [place] .3.151955 084.8 Medica l .8 [place] 2020-11-25 2020-11-25 Orders Doctor 1.2.840.9 [id number] 60715 064 Univers 00:00:00 00:00:00 Only Unassigned, 22762.1.1 ity of [place] 3.104.2.7 [place] .3.993655 Medica l 8 [place] 2020-11-25 2020-11-25 [facility] 1.2.979.745 9684 4592 00:00:00 00:00:00 [facility] 350.1.13.10 [facility] 4.2.7.2.686 [id number] 089 2020-11-25 2020-11-[address] [facility] 1.2.511.714 7187 0821 00:00:00 00:00:00 Robbi Hairston [facility] 350.1.13.10 [facility] 4.2.7.2.686 MATERNAL [id number] & CHILD [address] [place] [address] 2020-11-14 2020-11-14 Abstract Clark, 1.2.840.1 [id number] 16810 23398 Methodi 00:00:00 00:00:[address] 3.430.2.7 Hospit a .3.663099 l .8 2020-11-14 2020-11-14 Telephone Clark 1.2.840.1 [id number] 2100 189852 Methodi 00:00:00 00:00:[address] 3.430.2.7 Hospit a .3.351878 l .8 2020-11-12 2020-11-12 Outpatient R [facility] [id number] Univers 08:30:00 08:30:00 SANITAGO barbosa of [facility] 2020-11-07 2020-11-07 Telephone Agustina Ortiz 6400 1.2.840.11 4 [id number] [place] 00:00:00 00:00:00 Agustina Ortiz 350.1.13.58 [facility] 9.2.7.2.686 [id number] 1 2020-11-07 2020-11-07 Telephone Diana UTP 6400 1.2.840.114 124 [id number] 00:00:00 00:00:[address] 350.1.13.58 9.2.7.2.686 [id number] 1 2020-10-31 2020-10-31 Office Maryjaneporay UTP 6400 1.2.840.114 12 [id number] [place] 07:54:00 09:45:[address] 350.1.13.58 Health 9.2.7.2.686 [id number] 1 2020-10-30 2020-10-30 Abstract Rody Maguire UTP 6400 1.2.840.1 14 [id number] [place] 00:00:00 00:00:[address] 350.1.13.58 Health 9.2.7.2.686 [id number] 1 2020-10-29 2020-10-29 Refill East, 1.2.840.4 [id number] 400 Univers 00:00:00 00:00:00 Santiago 98689.1.1 ity of 3.104.2.7 [place] .3.701975 Medica l .8 [place] 2020-10-29 2020-10-29 Refill [place], 1.2.840.5 [id number] 93330 400 Univers 00:00:00 00:00:00 Santiago 04015.1.1 ity of 3.104.2.7 [place] .3.114380 Medica l .8 [place] 2020-10-27 2020-10-27 Telephone Jailyn, 1.2.840.1 [id number] 21 [id number] Methodi 00:00:00 00:00:[address] 3.430.2.7 Hospit a .3.295280 l .8 2020-10-24 2020-10-24 Telephone Rodas, 1.2.840.1 [id number] 2100 731974 Methodi 00:00:00 00:00:[address] 3.430.2.7 Hospit a .3.374272 l .8 2020-10-22 2020-10-22 Outpatient R SELF, [facility] [id number] Univers 13:00:00 13:00:00 GADIEL rodas [facility] 2020-10-22 2020-10-22 Travel 1.2.840.1 1.2.074.829 4568 3839 Univers 00:00:00 00:00:00 47380.1.1 350.1.13.10 ity of 3.104.2.7 [place].3.698 [place] .3.618807 084.8 Medica l .8 [place] 2020-10-22 2020-10-22 Travel 1.2.840.1 1.2.241.283 5513 3839 [facility] 00:00:00 00:00:00 07735.1.1 350.1.13.10 ity of 3.104.2.7 [place]7.3.698 [place] .3.509027 084.8 [facility] [address] 2020-10-13 2020-10-13 Outpatient R SELF, [facility] [id number] Univers 08:45:00 08:45:00 GADIEL vogel [facility] 2020-10-06 2020-10-12 Telemedici Jerehara, 1.2.840.1 [id number] 21 [id number] Methodi 15:30:00 00:08:46 ne Ray [address]267.1.[address] 3.430.2.7 Hospit a .3.774672 l .8 2020-09-30 2020-09-30 Telephone Chihara, 1.2.840.3 [id number] 21 [id number] Methodi 00:00:00 00:00:[address] 3.430.2.7 Hospit a .3.722305 l .8 2020-09-21 2020-09-21 Travel 1.2.840.1 1.2.794.824 4463 322959 Methodi 00:00:00 00:00:[address] 3.430.2.7 0.2.7.3.698 Ho spita .3.466657 084.8 l .8 2020-09-06 2020-09-06 [facility] 1.2.840.1 [id number] 67182 79424 Methodi 17:42:30 23:59:[address] 3.430.2.7 Hospit a .3.348417 l .8 2020-09-06 2020-09-06 [facility], 1.2.840.1 [id number] 2100 589380 Methodi 16:50:00 17:41:00 Encounter Ray [address]86.1.[address] 3.430.2.7 Hospit a .3.969524 l .8 2020-09-05 2020-09-05 [facility], 1.2.840.1 [id number] 2099 977430 Methodi 09:17:00 19:45:00 Encounter Ray [address]94.1.[address] 3.430.2.7 Hospit a .3.335519 l .8 2020-09-05 2020-09-05 Surgery [facility], 1.2.840.1 [id number] 82091 Methodi 11:30:00 13:15:[address] 3.430.2.7 Hospit a .3.370747 l .8 2020-09-05 2020-09-05 Anesthesia Remigio, 1.2.840.1 [id number] 320 [id number] Methodi 11:27:00 12:20:00 Event Anupamwathi 96764.1.1 243 s t V. 3.430.2.7 Hospit a .3.573835 l .8 2020-09-05 2020-09-05 Travel 1.2.840.1 1.2.943.717 3420 883832 Methodi 00:00:00 00:00:[address] 3.430.2.7 0.2.7.3.698 Ho spita .3.050323 084.8 l .8 2020-09-04 2020-09-04 Telephone Meisenbach, 1.2.840.1 [id number] Methodi 00:00:00 00:00:00 Sarai Lieberman 53000.1.1 762 s t 3.430.2.7 Hospit a .3.994443 l .8 2020-09-02 2020-09-02 Telephone Meisenbach, 1.2.840.2 [id number] Methodi 00:00:00 00:00:00 Sarai Lieberman 28754.1.1 344 s t 3.430.2.7 Hospit a .3.867952 l .8 2020-08-29 2020-08-30 Bedded [facility] [id number] [facility] 10:20:00 14:10:00 Outpatient r [address] 2020-08-29 2020-08-30 Outpatient HEMATPOUR, [facility] 7[facility] 05:20:00 09:10:00 BEVERLY 2020-08-06 2020-08-06 Office [place], 1.2.840.5 [id number] 416 Univers 08:03:23 09:17:49 Visit Santiago 20685.1.1 ity of 3.104.2.7 [place] .3.968950 Medica l .8 [place] 2020-08-06 2020-08-06 [facility] [id number] Univers 08:30:00 08:30:00 SANTIAGO barbosa of [facility] 2020-07-14 2020-07-14 Outpatient R SELF, [facility] [id number] Univers 09:30:00 09:30:00 GADIEL barbosa o f [facility] 2020-07-14 2020-07-14 Travel 1.2.840.1 1.2.256.051 9404 2575 Univers 00:00:00 00:00:00 26615.1.1 350.1.13.10 ity of 3.104.2.7 4.[place]7.3.698 [place] .3.909349 084.8 Medica l .8 [place] 2020-07-14 2020-07-14 Orders Doctor 1.2.840.8 [id number] 309 Univers 00:00:00 00:00:00 Only Unassigned, 36938.1.1 ity of [place] 3.104.2.7 [place] .3.886844 Medica l .8 [place] 2020-06-16 2020-06-16 Outpatient R [facility], [facility] [id number] Univers 08:00:00 08:00:00 GADIEL barbosa o f [facility] 2020-06-06 2020-06-06 Telephone East, 1.2.840.5 [id number] [id number] Univers 00:00:00 00:00:00 Santiago 20201.1.1 ity of 3.104.2.7 [place] .3.614569 Medica l .8 [place] 2020-06-04 2020-06-04 Shackler Santiago Cardenas 1.2.840.1 [id number] Univers 09:31:58 09:40:12 Visit [facility] 28672.1.1 ity of 3.104.2.7 [place] .3.294478 Medica l .8 [place] 2020-06-04 2020-06-04 [facility] 1.2.212.241 7855 9729 Univers 08:13:41 09:28:25 Visit Santiago [facility] 350.1.13.10 i ty of [place] 4[place].2.[place] 952.7139956 [facility] 089 [place] 2020-06-04 2020-06-04 Outpatient R EAST, [facility] [id number] Univers 08:30:00 08:30:00 SANTIAGO itcharlie of [facility] 2020-06-04 2020-06-04 Orders Doctor 1.2.840.3 [id number] 079 Univers 00:00:00 00:00:00 Only Unassigned, 58196.1.1 ity of [place] 3.104.2.7 [place] .3.049850 Medica l .8 [place] 2020-05-19 2020-05-19 Telephone East, 1.2.840.4 [id number] 804 [id number] Univers 00:00:00 00:00:00 Santiago 94184.1.1 ity of 3.104.2.7 [place] .3.059022 Medica l .8 [place] 2020-04-24 2020-04-24 Telephone [place], 1.2.840.3 [id number] 799 [id number] Univers 00:00:00 00:00:00 Santiago 96081.1.1 ity of 3.104.2.7 [place] .3.588042 Medica l .8 [place] 2020-04-14 2020-04-14 Outpatient R EAST, [facility] [id number] Univers 09:00:00 09:00:00 SANTIAGO ity of [facility] 2020-04-14 2020-04-14 Telephone [place], 1.2.840.2 [id number] 797 [id number] Univers 00:00:00 00:00:00 Santiago 93999.1.1 ity of 3.104.2.7 [place] .3.397727 Medica l .8 [place] 2020-03-31 2020-03-31 Outpatient R EAST, [facility] [id number] Univers 08:30:00 08:30:00 SANTIAGO ity of [facility] 2020-03-03 2020-03-03 Outpatient R SELF, [facility] [id number] Univers 08:00:00 08:00:00 GADIEL barbosa o [facility] 2020-03-03 2020-03-03 Outpatient R SELF, [facility] [id number] Univers 08:00:00 08:00:00 GADIEL macielcharlie o f [facility] 2020-03-03 2020-03-03 Travel 1.2.840.1 1.2.854.998 5023 5480 Univers 00:00:00 00:00:00 24873.1.1 350.1.13.10 ity of 3.104.2.7 4[place].7.3.698 [place] .3.145333 084.8 Medica l .8 [place] 2020-02-06 2020-02-06 Telephone East, 1.2.840.4 [id number] 781 [id number] Univers 00:00:00 00:00:00 Santiago 05146.1.1 ity of 3.104.2.7 [place] .3.277527 Medica l .8 [place] 2020-01-26 2020-01-26 Emergency Caridad, 1.2.840.8 [id number] 779 [id number] Univers 10:03:00 13:05:00 Cynise 67931.1.1 ity of 3.104.2.7 [place] .3.086227 Medica l .8 [place] 2020-01-26 2020-01-26 Travel 1.2.840.1 1.2.311.940 0824 0120 Univers 00:00:00 00:00:00 88407.1.1 350.1.13.10 ity of 3.104.2.7 4.[place].7.3.698 [place] .3.055057 084.8 Medica l .8 [place] 2020-01-25 2020-01-25 Outpatient R EAST, [facility] [id number] Univers 08:30:00 08:30:00 SANTIAGO ity of [facility] 2020-01-25 2020-01-25 Telemedici [place], 1.2.840.9 [id number] Univers 07:36:49 08:06:49 ne Visit Santiago 95229.1.1 ity of 3.104.2.7 [place] .3.720556 Medica l .8 [place] 2020-01-16 2020-01-16 Outpatient R EAST, [facility] [id number] Univers 08:00:00 08:00:00 SANTIAGO ity of [facility] 2020-01-16 2020-01-16 Telephone East, 1.2.840.2 [id number] Univers 00:00:00 00:00:00 Santiago 47400.1.1 ity of 3.104.2.7 [place] .3.119427 Medica l .8 [place] 2020-01-14 2020-01-14 Outpatient R SELF, [facility] [id number] Univers 08:00:00 08:00:00 GADIEL rodas [facility] 2019-12-31 2019-12-31 Outpatient R SELF, [facility] [id number] Univers 08:45:00 08:45:00 GADIEL rodas [facility] 2019-10-17 2019-10-17 [facility] [id number] Univers 08:30:00 08:30:00 SANTIAGO ity [facility] 2019-10-12 2019-10-12 Outpatient [facility] [id number] Univers 13:00:00 13:00:00 SANTIAGO ity [facility] 2019-10-12 2019-10-12 Telemedici [place], 1.2.840.8 [id number] Univers 07:38:30 08:08:30 ne Visit Santiago 93046.1.1 ity of 3.104.2.7 [place] .3.787595 Medica l .8 [place] 2019-10-08 2019-10-[address] [facility] [id number] Univers 10:15:00 10:15:00 GADIEL barbosa o f [facility] 2019-10-03 2019-10-03 Case Assman, 1.2.840.0 [id number] Univers 00:00:00 00:00:00 Management Michael Corbin 09320.1.1 i ty of 3.104.2.7 [place] .3.720447 Medica l .8 [place] 2019-09-27 2019-09-27 Telephone East, 1.2.840.7 [id number] 755 [id number] Univers 00:00:00 00:00:00 Santiago 68227.1.1 ity of 3.104.2.7 [place] .3.131611 Medica l .8 [place] 2019-09-04 2019-09-04 Refill East, 1.2.840.9 [id number] Univers 00:00:00 00:00:00 Santiago 22187.1.1 ity of 3.104.2.7 [place] .3.814193 Medica l .8 [place] 2019-07-24 2019-07-24 Outpatient R [facility] [id number] Univers 08:30:00 08:30:00 SANTIAGO ity [facility] 2019-07-17 2019-07-17 Outpatient R [facility] [id number] Univers 10:00:00 10:00:00 SANTIAGO ity [facility] 2019-06-15 2019-06-15 Telephone Ronald, 1.2.840.5 [id number] [id number] Univers 00:00:00 00:00:00 Santiago 58297.1.1 ity of 3.104.2.7 [place] .3.138636 Medica l .8 [place] 2019-06-13 2019-06-13 Telephone Team, [facility] 1.2.840.0 [id number] Univers 00:00:00 00:00:00 Health 99288.1.1 ity of [place].2.7 [place] .3.005448 Medica l .8 [place] 2019-05-10 2019-05-10 Refill Ronald, 1.2.840.1 [id number] Univers 00:00:00 00:00:00 Santiago 07910.1.1 ity of 3.104.2.7 [place] .3.325252 Medica l .8 [place] 2019-05-09 2019-05-09 Refill Ronald, 1.2.840.8 [id number] Univers 00:00:00 00:00:00 Santiago 34669.1.1 ity of 3.104.2.7 [place] .3.982147 Medica l .8 [place] 2019-04-30 2019-04-30 Outpatient R RODO, [facility] [id number] Univers 10:15:00 10:33:05 GADIEL barbosa o f [facility] 2019-04-18 2019-04-18 Shackler Santiago Cardenas 1.2.840.1 [id number] Univers 10:00:39 10:44:31 Visit [facility] 25789.1.1 ity of 3.104.2.7 [place] .3.871965 Medica l .8 [place] 2019-04-18 2019-04-18 Outpatient R RONALD [facility] [id number] Univers 10:00:00 10:44:31 SANTIAGO ity of [facility] 2019-04-18 2019-04-18 Office Ronald, 1.2.840.0 [id number] 005 Univers 08:27:44 09:53:27 Visit Santiago 83130.1.1 ity of 3.104.2.7 [place] .3.134334 Medica l .8 [place] 2019-04-18 2019-04-18 Orders Doctor 1.2.840.1 [id number] Univers 00:00:00 00:00:00 Only Unassigned, 48693.1.1 ity of [place] 3.104.2.7 [place] .3.695187 Medica l .8 [place] 2019-04-11 2019-04-11 Refill [place], 1.2.840.1 [id number] 033 Univers 00:00:00 00:00:00 Santiago 81628.1.1 ity of 3.104.2.7 [place] .3.868253 Medica l .8 [place] 2019-04-09 2019-04-09 Refill East, 1.2.840.1 [id number] Univers 00:00:00 00:00:00 Santiago 89577.1.1 ity of 3.104.2.7 [place] .3.441899 Medica l .8 [place] 2019-04-03 2019-04-03 Telephone Team, [facility] 1.2.840.5 [id number] Univers 00:00:00 00:00:00 Health 16816.1.1 ity of [place]104.2.7 [place] .3.044711 Medica l .8 [place] 2019-03-27 2019-03-27 Telephone Self, 1.2.840.9 [id number] 723 [id number] Univers 00:00:00 00:00:00 Gadiel 56653.1.1 ity of 3.104.2.7 [place] .3.840294 Medica l .8 [place] 2019-01-17 2019-01-17 Office East, 1.2.840.1 [id number] Univers 07:37:21 10:32:51 Visit Santiago 30257.1.1 ity of 3.104.2.7 [place] .3.615688 Medica l .8 [place] 2019-01-04 2019-01-12 Office Eveline Hansen 1.2.840.3 [id number] Univers 11:19:32 11:08:05 Visit Mariela 87446.1.1 ity of 3.104.2.7 [place] .3.957080 Medica l .8 [facility] 2019-01-10 2019-01-10 Telephone Ephraimcharlie, 1.2.840.0 [id number] Univers 00:00:00 00:00:00 Eladio Inman 01401.1.1 ity of 3.104.2.7 [place] .3.759114 Medica l .8 [place] 2018-12-18 2018-12-18 Office Geraldine, 1.2.840.8 [id number] Univers 08:48:45 09:13:43 Visit Leyda 14764.1.1 it y of 3.104.2.7 [place] .3.388936 Medica l .8 Branch 2018-10-30 2018-10-30 Telephone East, 1.2.840.9 [id number] Univers 00:00:00 00:00:00 [place] 52576.1.1 ity of 3.104.2.7 [place] .3.447010 Medica l .8 [facility] 2018-10-23 2018-10-23 Orders Doctor 1.2.840.7 [id number] Univers 00:00:00 00:00:00 Only Unassigned, 83367.1.1 ity of [place] 3.104.2.7 [place] .3.250775 Medica l .8 [place] 2018-10-23 2018-10-23 Nurse Selvin, 1.2.840.8 [id number] Univers 00:00:00 00:00:00 Triage Stefanie 40636.1.1 ity of 3.104.2.7 [place] .3.069673 Medica l .8 Branch 2018-10-23 2018-10-23 Telephone Self, 1.2.840.5 [id number] Univers 00:00:00 00:00:00 Gadiel 93538.1.1 ity of 3.104.2.7 [place] .3.771586 Medica l .8 [place] 2018-10-20 2018-10-20 Telephone Self, 1.2.840.6 [id number] Univers 00:00:00 00:00:00 Gadiel 26814.1.1 ity of 3.104.2.7 [place] .3.056163 Medica l .8 Branch Results Test Description Test Time Test Comments Results Result Comments Source COMP. METABOLIC PANEL (40526) 2022-05-06 22:42:55 Test Item Value Reference Range Interpretation Comme nts NA (test code = 7295216818) 137 mmol/L 135-145 K (test code = 4368636832) 3.2 mmol/L 3.5-5.0 L CL (test code = 4183116919) 100 mmol/L 98-108 CO2 TOTAL (test code = 5740386570) 23 mmol/L 23-31 AGAP (test code = 0556791392) 2-16 BUN (test code = 9328096508) 41 mg/dL 7-23 H GLUCOSE (test code = 2371859369) 98 mg/dL 70-110 CREATININE (test code = 1.55 mg/dL 0.50-1.04 H 5895148271) TOTAL BILI (test code = 0.8 mg/dL 0.1-1.0 1079434663) CALCIUM (test code = 7876259131) 8.3 mg/dL 8.6-10.6 L T PROTEIN (test code = 0442937466) 6.9 g/dL 6.3-8.2 ALBUMIN (test code = 9129325104) 3.9 g/dL 3.5-5.0 ALK PHOS (test code = 2182329194) 89 U/L 34-122 ALTv (test code = 1742-6) 101 U/L 5-35 H AST(SGOT) (test code = 4049413409) 203 U/L 13-40 H eGFR (test code = 2057475620) mL/min/1.73m2 KYLE (test code = KYLE) Association [...] tests). Lab Interpretation (test code = Abnormal 52401-3) [facility] WITH [id number] 22:33:52 Test Item Value Reference Range Interpretation Comments WBC (test code = See_Comment L [Automated 6090-2) message] The sy stem which generated this result transmitted reference range : 4.30 - 11.10 10*3/?L. The reference range was not used to interpret this result as normal/abnormal . RBC (test code = See_Comment [Automated 719-8) message] The sy stem which [...] RDW-SD (test code = 46.3 fL 39.0-49.9 30271-8) RDW-CV (test code = 13.5 % 12.0-15.5 788-0) PLT (test code = See_Comment L [Automated 777-3) message] The sy stem which generated this result transmitted reference range : 166 - 358 10*3/ ?L. The reference r abbey was not used to interpret this result as normal/abnormal . MPV (test code = 9.5 fL 9.5-12.9 87837-3) NRBC/100 WBC (test See_Comment [Automat ed code = 7023094559) message] The system which generated this result transmitted reference range : 0.0 - 10.0 /100 WBCs. The refer ence range was not u sed to interpret th is result as normal/abnormal . NRBC x10^3 (test code See_Comment [Auto mated = 5809844741) message] The s ystem which generated this result transmitted reference range : 10*3/?L. The reference range was not used to interpret this result as normal/abnormal . GRAN MAT (NEUT) % 58.3 % (test code = 770-8) IMM GRAN % (test code 0.80 % = 6498458794) LYMPH % (test code = 28.1 % 736-9) MONO % (test code = 12.0 % 5905-5) EOS % (test code = 0.5 % 713-8) BASO % (test code = 0.3 % 706-2) GRAN MAT x10^3(ANC) 2.29 10*3/uL 1.88-7.09 (test code = 3818696591) IMM GRAN x10^3 (test 0.03 10*3/uL 0.00-0.06 code = 8950061007) LYMPH x10^3 (test code 1.10 10*3/uL 1.32-3.29 L = 731-0) MONO x10^3 (test code 0.47 10*3/uL 0.33-0.92 = 742-7) EOS x10^3 (test code = 0.03-0.39 L 711-2) BASO x10^3 (test code 0.01-0.07 = 704-7) Lab Interpretation Abnormal (test code = 79630-8) [facility] PANEL (NA, K, CL, CO2, GLUCOSE, BUN, CREATININE, CA)2022-04-22 21:43:42 Test Item Value Reference Range Interpretation Comments NA (test code = 142 mmol/L 135-145 9124862966) K (test code = 3.5 mmol/L 3.5-5.0 1439327500) CL (test code = 106 mmol/L 98-108 7599464223) CO2 TOTAL (test code = 26 mmol/L 23-31 2490121420) AGAP (test code = 2-16 3034126672) BUN (test code = 29 mg/dL 7-23 H 8715373348) GLUCOSE (test code = 84 mg/dL 70-110 3534468920) CREATININE (test code = 1.16 mg/dL 0.50-1.04 H 6140796158) CALCIUM (test code = 8.2 mg/dL 8.6-10.6 L 8546494650) eGFR (test code = mL/min/1.73m2 4378922946) KYLE (test code = KYLE) Association of [...] tests). Lab Interpretation Abnormal (test code = 87928-9) [facility] WITH [id number] 21:33:01 Test Item Value Reference Range Interpretation [...] (test code = 50.7 fL 39.0-49.9 H 98029-0) RDW-CV (test code = 14.6 % 12.0-15.5 788-0) PLT (test code = See_Comment L [Automated 777-3) message] The sy stem which generated this result transmitted reference range : 166 - 358 10*3/ ?L. The reference r abbey was not used to interpret this result as normal/abnormal . MPV (test code = 8.8 fL 9.5-12.9 L 71725-5) NRBC/100 WBC (test See_Comment [Automat ed code = 4916241820) message] The system which generated this result transmitted reference range : 0.0 - 10.0 /100 WBCs. The refer ence range was not u sed to interpret th is result as normal/abnormal . NRBC x10^3 (test code See_Comment [Auto mated = 4561062900) message] The s ystem which generated this result transmitted reference range : 10*3/?L. The reference range was not used to interpret this result as normal/abnormal . GRAN MAT (NEUT) % 70.9 % (test code = 770-8) IMM GRAN % (test code 0.50 % = 0265665963) LYMPH % (test code = 17.4 % 736-9) MONO % (test code = 9.0 % 5905-5) EOS % (test code = 1.7 % 713-8) BASO % (test code = 0.5 % 706-2) GRAN MAT x10^3(ANC) 4.60 10*3/uL 1.88-7.09 (test code = 2739917519) IMM GRAN x10^3 (test 0.03 10*3/uL 0.00-0.06 code = 3675312479) LYMPH x10^3 (test code 1.13 10*3/uL 1.32-3.29 L = 731-0) MONO x10^3 (test code 0.58 10*3/uL 0.33-0.92 = 742-7) EOS x10^3 (test code = 0.11 10*3/uL 0.03-0.39 711-2) BASO x10^3 (test code 0.03 10*3/uL 0.01-0.07 = 704-7) Lab Interpretation Abnormal (test code = 55187-4) [id number] 06:01:07 Test Item Value Reference Range Interpretation Comments Blood Culture-Aerobic No organisms No growth Previo us (test code = 21225-6) isolated prelim inary verified result was Culture [...] Culture-Anaerobic isolated preliminar y (test code = 60534-9) verifi ed result was Culture In Progress [...] CDT Lab Interpretation Normal (test code = 03417-0) [facility] CULTURE [id number] 06:01:07 Test Item Value Reference Range Interpretation Comments Blood Culture-Aerobic No organisms No growth Previo us (test code = 58941-8) isolated prelim inary verified result was Culture [...] Culture-Anaerobic isolated preliminar y (test code = 35749-0) verifi ed result was Culture In Progress [...] CDT Lab Interpretation Normal (test code = 62753-8) [facility] CULTURE [id number] 06:01:07 Test Item Value Reference Range Interpretation Comments Blood Culture-Aerobic No organisms No growth Previo us (test code = 91538-5) isolated prelim inary verified result was Culture [...] Culture-Anaerobic isolated preliminar y (test code = 38943-7) verifi ed result was Culture In Progress [...] CDT Lab Interpretation Normal (test code = 52123-1) [facility] [id number] 10:49:10 Test Item Value Reference Range Interpretation Comments NT-proBNP (test code 2660 pg/mL See_Comment H [Autom ated = 8932752055) message] The system which generated this result transmitted reference range : <=125. The reference range was not used to interpret this result as normal/abnormal . KYLE (test code = KYLE) Biotin has been reported to cause a negative bias, interpret results relative to patient's use of biotin. Lab Interpretation Abnormal (test code = 61776-5) [facility] [id number] 10:49:10 Test Item Value Reference Range Interpretation Comments NT-proBNP (test code 2660 pg/mL See_Comment H [Autom ated = 5192947836) message] The system which generated this result transmitted reference range : <=125. The reference range was not used to interpret this result as normal/abnormal . KYLE (test code = KYLE) Biotin has been reported to cause a negative bias, interpret results relative to patient's use of biotin. Lab Interpretation Abnormal (test code = 26847-1) [facility] (NA, K, CL, CO2, GLUCOSE, BUN, CREATININE, CA)2022-02-15 10:44:07 Test Item Value Reference Range Interpretation Comments NA (test code = 134 mmol/L 135-145 L 6976087268) K (test code = 3.2 mmol/L 3.5-5 L 8906223695) CL (test code = 98 mmol/L 98-108 9500094011) CO2 TOTAL (test code = 27 mmol/L 23-31 8326512815) AGAP (test code = 2-16 7435585494) BUN (test code = 19 mg/dL 7-23 6946339454) GLUCOSE (test code = 102 mg/dL 70-110 6307565653) CREATININE (test code = 0.95 mg/dL 0.5-1.04 8220027678) CALCIUM (test code = 8.5 mg/dL 8.6-10.6 L 6276690959) eGFR (test code = mL/min/1.73m2 1924318971) KYLE (test code = KYLE) Association of [...] tests). Lab Interpretation Abnormal (test code = 82550-0) [facility] 10:44:07 Test Item Value Reference Range Interpretation Comments MAGNESIUM (test code = 4653686490) 1.8 mg/dL 1.7-2.4 Lab Interpretation (test code = Normal 81821-9) [facility]2022-09-26 10:44:07 Test Item Value Reference Range Interpretation Comments MAGNESIUM (test code = 6078422835) 1.8 mg/dL 1.7-2.4 Lab Interpretation (test code = Normal 90112-6) [facility] (NA, K, CL, CO2, GLUCOSE, BUN, CREATININE, CA)2022-02-15 10:44:07 Test Item Value Reference Range Interpretation Comments NA (test code = 134 mmol/L 135-145 L 6593712594) K (test code = 3.2 mmol/L 3.5-5.0 L 3182479240) CL (test code = 98 mmol/L 98-108 2336396629) CO2 TOTAL (test code = 27 mmol/L 23-31 3319259152) AGAP (test code = 2-16 3949193680) BUN (test code = 19 mg/dL 7-23 2168888786) GLUCOSE (test code = 102 mg/dL 70-110 2431208660) CREATININE (test code = 0.95 mg/dL 0.50-1.04 5904592967) CALCIUM (test code = 8.5 mg/dL 8.6-10.6 L 0523006985) eGFR (test code = mL/min/1.73m2 9347072507) KYLE (test code = KYLE) Association of [...] tests). Lab Interpretation Abnormal (test code = 12278-2) [facility] WITH [id number] 10:12:06 Test Item Value Reference Range Interpretation [...] RDW-SD (test code = 47.8 fL 39-49.9 88467-2) RDW-CV (test code = 15.2 % 12-15.5 788-0) PLT (test code = See_Comment L [Automated 777-3) message] The sy stem which generated this result transmitted reference range : 166 - 358 10*3/ ?L. The reference r abbey was not used to interpret this result as normal/abnormal . MPV (test code = 8.9 fL 9.5-12.9 L 55214-1) NRBC/100 WBC (test See_Comment [Automat ed code = 4907807381) message] The system which generated this result transmitted reference range : 0.0 - 10.0 /100 WBCs. The refer ence range was not u sed to interpret th is result as normal/abnormal . NRBC x10^3 (test code See_Comment [Auto mated = 0781237338) message] The s ystem which generated this result transmitted reference range : 10*3/?L. The reference range was not used to interpret this result as normal/abnormal . GRAN MAT (NEUT) % 65.9 % (test code = 770-8) IMM GRAN % (test code 0.30 % = 5667674319) LYMPH % (test code = 21.0 % 736-9) MONO % (test code = 10.1 % 5905-5) EOS % (test code = 2.4 % 713-8) BASO % (test code = 0.3 % 706-2) GRAN MAT x10^3(ANC) 2.49 10*3/uL 1.88-7.09 (test code = 6401026959) IMM GRAN x10^3 (test 0-0.06 code = 3633497640) LYMPH x10^3 (test code 0.79 10*3/uL 1.32-3.29 L = 731-0) MONO x10^3 (test code 0.38 10*3/uL 0.33-0.92 = 742-7) EOS x10^3 (test code = 0.09 10*3/uL 0.03-0.39 711-2) BASO x10^3 (test code 0.01-0.07 = 704-7) Lab Interpretation Abnormal (test code = 00996-0) [facility] WITH [id number] 10:12:06 Test Item Value Reference Range Interpretation [...] RDW-SD (test code = 47.8 fL 39.0-49.9 23241-4) RDW-CV (test code = 15.2 % 12.0-15.5 788-0) PLT (test code = See_Comment L [Automated 777-3) message] The sy stem which generated this result transmitted reference range : 166 - 358 10*3/ ?L. The reference r abbey was not used to interpret this result as normal/abnormal . MPV (test code = 8.9 fL 9.5-12.9 L 32421-6) NRBC/100 WBC (test See_Comment [Automat ed code = 7542665210) message] The system which generated this result transmitted reference range : 0.0 - 10.0 /100 WBCs. The refer ence range was not u sed to interpret th is result as normal/abnormal . NRBC x10^3 (test code See_Comment [Auto mated = 1936262654) message] The s ystem which generated this result transmitted reference range : 10*3/?L. The reference range was not used to interpret this result as normal/abnormal . GRAN MAT (NEUT) % 65.9 % (test code = 770-8) IMM GRAN % (test code 0.30 % = 6667651830) LYMPH % (test code = 21.0 % 736-9) MONO % (test code = 10.1 % 5905-5) EOS % (test code = 2.4 % 713-8) BASO % (test code = 0.3 % 706-2) GRAN MAT x10^3(ANC) 2.49 10*3/uL 1.88-7.09 (test code = 8377172254) IMM GRAN x10^3 (test 0.00-0.06 code = 9857972027) LYMPH x10^3 (test code 0.79 10*3/uL 1.32-3.29 L = 731-0) MONO x10^3 (test code 0.38 10*3/uL 0.33-0.92 = 742-7) EOS x10^3 (test code = 0.09 10*3/uL 0.03-0.39 711-2) BASO x10^3 (test code 0.01-0.07 = 704-7) Lab Interpretation Abnormal (test code = 59690-7) [facility] WITH [id number] 11:18:28 Test Item Value Reference Range Interpretation [...] RDW-SD (test code = 49.5 fL 39-49.9 01322-0) RDW-CV (test code = 15.5 % 12-15.5 788-0) PLT (test code = See_Comment L [Automated 777-3) message] The sy stem which generated this result transmitted reference range : 166 - 358 10*3/ ?L. The reference r abbey was not used to interpret this result as normal/abnormal . MPV (test code = 11.4 fL 9.5-12.9 58875-6) IPF % (test code = 8.7 % 1.3-7.7 H Platelet count 9609115283) measured by fluorescence method. NRBC/100 WBC (test See_Comment [Automat ed code = 3175765854) message] The system which generated this result transmitted reference range : 0.0 - 10.0 /100 WBCs. The refer ence range was not u sed to interpret th is result as normal/abnormal . NRBC x10^3 (test code See_Comment [Auto mated = 4488978773) message] The s ystem which generated this result transmitted reference range : 10*3/?L. The reference range was not used to interpret this result as normal/abnormal . GRAN MAT (NEUT) % 62.0 % (test code = 770-8) IMM GRAN % (test code 0.80 % = 9533422103) LYMPH % (test code = 22.2 % 736-9) MONO % (test code = 9.6 % 5905-5) EOS % (test code = 5.1 % 713-8) BASO % (test code = 0.3 % 706-2) GRAN MAT x10^3(ANC) 2.21 10*3/uL 1.88-7.09 (test code = 9029056204) IMM GRAN x10^3 (test 0.03 10*3/uL 0-0.06 code = 9629589043) LYMPH x10^3 (test code 0.79 10*3/uL 1.32-3.29 L = 731-0) MONO x10^3 (test code 0.34 10*3/uL 0.33-0.92 = 742-7) EOS x10^3 (test code = 0.18 10*3/uL 0.03-0.39 711-2) BASO x10^3 (test code 0.01-0.07 = 704-7) POLYCHROMASIA (test 2+ See_Comment [Automa arpit code = 91174-3) message] The system which generated this result [...] . Lab Interpretation Abnormal (test code = 58324-6) [facility] METABOLIC PANEL (NA, K, CL, CO2, GLUCOSE, BUN, CREATININE, CA)2022-02-13 10:39:07 Test Item Value Reference Range Interpretation Comments NA (test code = 136 mmol/L 135-145 3309629118) K (test code = 4.1 mmol/L 3.5-5 4341700183) CL (test code = 102 mmol/L 98-108 5473909644) CO2 TOTAL (test code = 27 mmol/L 23-31 0592624984) AGAP (test code = 2-16 7757198011) BUN (test code = 22 mg/dL 7-23 6015743433) GLUCOSE (test code = 94 mg/dL 70-110 2804266491) CREATININE (test code = 0.94 mg/dL 0.5-1.04 5253908914) CALCIUM (test code = 8.1 mg/dL 8.6-10.6 L 4954920693) eGFR (test code = mL/min/1.73m2 4474231518) KYLE (test code = KYLE) Association of [...] tests). Lab Interpretation Abnormal (test code = 00472-3) [facility]22-[facility]12 01:50:10 Test Item Value Reference Range Interpretation Comments Height (test code = in 5229940675) Weight (test code = lbs 8729880222) Systolic BP (test code mmHg = 7258483440) Diastolic BP (test code mmHg = 4469112975) Heart Rate (test code = bpm 2783007386) BSA (test code = 1.85 m2 4150218863) IVS (test code = 1.22 cm 5637711819) Interventricular Septum 1.22 cm Diastolic Thickness by 2D (test code = 0217575) LVIDD (test code = 5.00 cm 2022900639) Left Ventricular End 117.9 mL Diastolic Volume by Teichholz Method (test code = 2873385) LVPWD (test code = 1.22 cm 1649062601) PW (test code = 1.22 cm 0.6-1.1 3548731106) EF(Teich) (test code = 74.60 % 2311227118) LVIDS (test code = 2.80 cm 3960967445) Left Ventricular End 29.9 mL Systolic Volume by Teichholz Method (test code = 7226572) FS (test code = 44 % 4304605772) EF - 2D (test code = 74.60 % 07291016) LVOT diameter (test 2.16 cm code = 4430760034) LVOT area (test code = 3.70 cm2 4487194311) Ao root diam (test code 3.40 cm = 0477183794) Aortic root (test code 3.4 cm = 4177953109) Ao root annulus (test 3.4 cm code = 9120193352) LA size (test code = 3.4 cm 7593916431) TR Peak Spencer (test code 330.0 cm/s = 4043856803) Triscuspid Valve mmHg Regurgitation Peak Gradient (test code = 8416471368) PV REGURGITATION PEAK mmHg GRADIENT (test code = 5828648192) PI dec slope (test code 137.20 cm/s2 = 7968512031) LAV(MOD-sp4) (test code 102.90 mL = 4438250579) MV Peak E Spencer (test 84.1 cm/s code = 0035073914) MV Peak A Spencer (test 40.1 cm/s code = 8340745715) E/A ratio (test code = ratio 5253059558) MV valve area p 1/2 3.70 cm2 method (test code = 7159729531) MV dec slope (test code 413.00 cm/s2 = 9635678638) MV P1/2t max spencer (test 83.70 cm/s code = 7407145888) MV Prop V (test code = 41.80 cm/s 9919100107) Tapse (test code = 1.83 cm 3383296489) LVOT stroke volume 96.90 cm3 (test code = 7064885540) LVOT peak spencer (test 125.5 cm/s code = 8869001043) LVOT mn grad (test code mmHg = 2472562483) AV LVOT peak gradient mmHg (test code = 7280418160) LVOT peak VTI (test 26.4 cm code = 8041857790) LV V1 mean (test code = 78.10 cm/s 6829063461) Aortic valve mean 103.7 cm/s velocity (test code = 5166214743) Ao peak spencer (test code 165.6 cm/s = 1006512831) Ao VTI (test code = 37.2 cm 8300886510) AV area by cont VTI 2.6 cm2 (test code = 8000981927) AV area peak spencer (test 2.8 cm2 code = 5631819316) Ao max PG (test code = 11.00 mm[Hg] 2346938335) AV peak gradient (test mmHg code = 3752386701) AV valve area (test 2.60 cm2 code = 2935285321) AV mean gradient (test mmHg code = 4982992409) LA Volume Index (BP) 55.2 mL/m2 (test code = 4448975014) LA volume (BP) (test 102.1 mL code = 6565585761) LAV(MOD-sp2) (test code 86.10 mL = 8803472733) A2C EF (test code = 61.20 % 4231733371) EF(sp2-el) (test code = 61.60 % 1084719735) SV(MOD-sp2) (test code 47.10 mL = 9608665219) LV Diastolic Volume 70.7 mL (BP) (test code = 1745795959) A4C EF (test code = 53.00 % 6806590715) EF(MOD-bp) (test code = 56.70 % 0275857299) EF(sp4-el) (test code = 53.90 % 2076190490) LV Systolic Volume (BP) 30.6 mL (test code = 4524621607) SV(MOD-bp) (test code = 40.10 mL 3707002666) SV(MOD-sp4) (test code 32.40 mL = 5249566449) SV(sp4-el) (test code = 33.10 mL 6678505998) EF (test code = 5873138601) Left Ventricular Stroke 40.1 mL Volume by 2-D Biplane-MOD (test code = 4427224) LV Diastolic Volume 38.2 mL/m2 Index (BP) (test code = 4192572305) LV Systolic Volume 16.5 mL/m2 Index (BP) (test code = 7681439481) Radiology Study observation (narrative) (test code = 18093-9) KYLE (test code = KYLE) ?Left?Ventricle: Left [...] 1.00The left ventricular wall motion is normal. [facility] [id number] 05:45:01 Test Item Value Reference Interpretation Comments Range TROPONIN I (test See_Comment [Automated code = 3046073117) message] The system which generated this result [...] biotin. Lab Interpretation Normal (test code = 66146-8) [facility] [id number] 05:41:40 Test Item Value Reference Range Interpretation Comments NT-proBNP (test code 4250 pg/mL See_Comment H [Autom ated = 9048248980) message] The system which generated this result transmitted reference range : <=125. The reference range was not used to interpret this result as normal/abnormal . KYLE (test code = KYLE) Biotin has been reported to cause a negative bias, interpret results relative to patient's use of biotin. Lab Interpretation Abnormal (test code = 56603-6) [facility] [id number] 05:35:21 Test Item Value Reference Range Interpretation [...] seconds. Lab Interpretation Normal (test code = 15773-0) [facility] [id number] 05:35:21 Test Item Value Reference Range Interpretation [...] seconds. Lab Interpretation Normal (test code = 46132-8) [facility] / [id number] 05:33:21 Test Item Value Reference Range Interpretation Comments PROTIME PATIENT (test See_Comment [Auto mated message] code = 5964-2) The system [employer] generated this result transmitted ref erence range: 12.0 - 1 4.7 Seconds. The re ference range was not u sed to interpret this result as normal/abnor mal. INR (test code = 6301-6) Nor mal INR <1.1; Warfarin Therap eutic range 2.0 to 3. 0 or 2.5 to 3.5, dep ending upon the indica tions. Lab Interpretation (test Normal code = 35292-1) [facility]. METABOLIC PANEL (63998)2022-02-11 05:33:21 Test Item Value Reference Range Interpretation Comments NA (test code = 137 mmol/L 135-145 0969313573) K (test code = 4.3 mmol/L 3.5-5 4572189960) CL (test code = 103 mmol/L 98-108 3424679668) CO2 TOTAL (test code = 25 mmol/L 23-31 8687773617) AGAP (test code = 2-16 2828359522) BUN (test code = 19 mg/dL 7-23 7644087231) GLUCOSE (test code = 120 mg/dL 70-110 H 8901182427) CREATININE (test code = 1.15 mg/dL 0.5-1.04 H 5910474433) TOTAL BILI (test code = 0.9 mg/dL 0.1-1.1 7829443846) CALCIUM (test code = 8.9 mg/dL 8.6-10.6 9499910580) T PROTEIN (test code = 6.6 g/dL 6.3-8.2 5835026684) ALBUMIN (test code = 4.0 g/dL 3.5-5 0621258992) ALK PHOS (test code = 73 U/L 34-122 8338259070) ALTv (test code = 18 U/L 5-35 1742-6) AST(SGOT) (test code = 31 U/L 13-40 0896357263) eGFR (test code = mL/min/1.73m2 6990421213) KYLE (test code = KYLE) Association of [...] tests). Lab Interpretation Abnormal (test code = 39433-1) [facility]. METABOLIC PANEL (20660)2022-02-11 05:33:21 Test Item Value Reference Range Interpretation Comments NA (test code = 137 mmol/L 135-145 0771651939) K (test code = 4.3 mmol/L 3.5-5.0 6313143337) CL (test code = 103 mmol/L 98-108 0495099940) CO2 TOTAL (test code = 25 mmol/L 23-31 2481949099) AGAP (test code = 2-16 2617128901) BUN (test code = 19 mg/dL 7-23 4709989218) GLUCOSE (test code = 120 mg/dL 70-110 H 3627563939) CREATININE (test code = 1.15 mg/dL 0.50-1.04 H 2637895322) TOTAL BILI (test code = 0.9 mg/dL 0.1-1.8 8857159539) CALCIUM (test code = 8.9 mg/dL 8.6-10.6 1942228328) T PROTEIN (test code = 6.6 g/dL 6.3-8.2 6734308031) ALBUMIN (test code = 4.0 g/dL 3.5-5.0 2424718583) ALK PHOS (test code = 73 U/L 34-122 2345970512) ALTv (test code = 18 U/L 5-35 1742-6) AST(SGOT) (test code = 31 U/L 13-40 4370684044) eGFR (test code = mL/min/1.73m2 2201539510) KYLE (test code = KYLE) Association of [...] tests). Lab Interpretation Abnormal (test code = 71739-1) [facility] / [id number] 05:33:21 Test Item Value Reference Range Interpretation [...] tions. Lab Interpretation (test Normal code = 81671-5) [facility] WITH [id number] 05:14:37 Test Item Value Reference Range Interpretation [...] RDW-SD (test code = 47.9 fL 39-49.9 80025-3) RDW-CV (test code = 14.9 % 12-15.5 788-0) PLT (test code = See_Comment L [Automated 777-3) message] The sy stem which generated this result transmitted reference range : 166 - 358 10*3/ ?L. The reference r abbey was not used to interpret this result as normal/abnormal . MPV (test code = 9.1 fL 9.5-12.9 L 87460-5) NRBC/100 WBC (test See_Comment [Automat ed code = 6779861059) message] The system which generated this result transmitted reference range : 0.0 - 10.0 /100 WBCs. The refer ence range was not u sed to interpret th is result as normal/abnormal . NRBC x10^3 (test code See_Comment [Auto mated = 6276203332) message] The s ystem which generated this result transmitted reference range : 10*3/?L. The reference range was not used to interpret this result as normal/abnormal . GRAN MAT (NEUT) % 78.5 % (test code = 770-8) IMM GRAN % (test code 0.20 % = 4129833781) LYMPH % (test code = 11.6 % 736-9) MONO % (test code = 8.4 % 5905-5) EOS % (test code = 1.1 % 713-8) BASO % (test code = 0.2 % 706-2) GRAN MAT x10^3(ANC) 3.45 10*3/uL 1.88-7.09 (test code = 9877216081) IMM GRAN x10^3 (test 0-0.06 code = 5487600629) LYMPH x10^3 (test code 0.51 10*3/uL 1.32-3.29 L = 731-0) MONO x10^3 (test code 0.37 10*3/uL 0.33-0.92 = 742-7) EOS x10^3 (test code = 0.05 10*3/uL 0.03-0.39 711-2) BASO x10^3 (test code 0.01-0.07 = 704-7) Lab Interpretation Abnormal (test code = 60068-8) [facility] Coronavirus 2019 [id number] 18:08:00 Test Item Value Reference Range Interpretation [...] det ection of nucleic acids f rom ovtWXSB-HtZ-8 v irus and diagnosis of SA RS-CoV-2 virusinfection. It is an Emergency Use Authorization ( EUA) testauthorized by the U.[place]. FDA. BASIC METABOLIC [id number] 09:37:00 Test Item Value Reference Range Interpretation [...] = 9.0 mg/dL 8.0-10.5 N CA) PROTHROMBIN [id number] 09:32:00 Test Item Value Reference Range Interpretation [...] (to prevent recurrent infar ct). 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 [facility] - XR CHEST 1 [id number] 00:00:00 [facility] ELEN LAKEName: LIO WATTS : 1955 Sex: F FAX: Carmenza Kelly DO [phone] [place]: St: [facility] FAX: Mike Scales MD [phone] FAX: Bahman Chopra [phone] Name: LIO WATTS [facility] : 1955 Age/S: 66/F [address] [place] [address] Unit #: [id number] Loc: [place] [address] Phys: [facility] Acct: [id number] Dis Date: Status: ADM IN PHONE #: [phone] Exam Date: 06/17/2021 1320 FAX #: [phone] Reason: WATCHMAN EXAMS: CPT CODE: [id number] XR CHEST 1 V 51278 PROCEDURE INFORMATION: Exam: XR Chest Exam date [...] By: Susanna Orig Print D/T: S: 06/17/2021 (8500) PAGE 1 Signed ReportCOVID 19 Asymptomatic IH [id number] 12:29:00 Test Item Value Reference Range Interpretation [...] high or waivedcomplexit y tests. BASIC METABOLIC [id number] 11:37:00 Test Item Value Reference Range Interpretation [...] code = 9.0 mg/dL 8.0-10.5 N CA) [id number] 11:37:00 Test Item Value Reference Range Interpretation Comments PREALBUMIN (test code = PREALB) 24.3 mg/dL 16.0-40.0 N PROTHROMBIN [id number] 11:03:00 Test Item Value Reference Range Interpretation [...] (to prevent recurrent infar ct). CBC W/AUTO [id number] 10:59:00 Test Item Value Reference Range Interpretation [...] code = 0.00 x10 3/uL 0.0-0.1 N [facility]#) - XR CHEST 2 [id number] 00:00:00 [facility] 1955 Sex: F FAX: Carmenza Kelly DO [phone] [place]: St: PRE FAX: Mike Scales MD [phone] Name: LIO WATTS [facility] : 1955 Age/S: 66/F [address] [place] [address] Unit #: [id number] Loc: [place] [address] Phys: Mike Lund MD Acct: [id number] Dis Date: Status: [facility] PHONE #: [phone] Exam Date: 06/16/2021 1120 FAX #: [phone] Reason: PREOP EXAMS: CPT CODE: [id number] XR CHEST 2 V 82393 PROCEDURE INFORMATION: Exam: XR Chest Exam date [...] MD Technologist: RT Andree(R) Trnscrd Date/Time/By: 06/16/2021 (2347) : By: [email or web address] Orig Print D/T: S: 06/16/2021 (8908) PAGE 1 Signed ReportGastrointestinal ximtm0785-40-48 04:35:05 Test Item Value Reference Interpretation Comments [...] Rotavirus PCR (test Not Detected code = 3713090) Salmonella PCR (test Not Detected code = [...] Detected (test code = 7124) [facility] kltcjim8605-05-23 19:30:47 Test Item Value Reference Range Interpretation Comments Case number (test [id number] code = 4065818) Surgical pathology See link below for PDF report (test code = Lab Report 2255) Result status (test This is Supplemental code = 6999880) Report for [id number] [facility]2021-04-09 16:31:00 Test Item Value Reference Range Interpretation Comments POC Activated Clotting Time (test code 153 s = POC Activated Clotting Time) [facility]ozyCAGIXWJRDX8458-[facility]-91 16:31:00 Test Item Value Reference Range Interpretation Comments POC Activated Clotting Time (test code 153 s = POC Activated Clotting Time) [facility] CenterIipbjhpIHQUIGFTHQ2825-44-33 16:31:00 Test Item Value Reference Range Interpretation Comments POC Activated Clotting Time (test code 153 s = POC Activated Clotting Time) [facility] CenterAaqsgtaMITINBEJAO7146-05-72 16:31:00 Test Item Value Reference Range Interpretation Comments POC Activated Clotting Time (test code 153 s = POC Activated Clotting Time) [facility] CenterMcyezjdJFWRSPRQPY5129-39-67 16:31:00 Test Item Value Reference Range Interpretation Comments POC Activated Clotting Time (test code 153 s = POC Activated Clotting Time) [facility] CenterHxygitrSYUGSKPQSY1469-99-53 16:31:00 Test Item Value Reference Range Interpretation Comments POC Activated Clotting Time (test code 153 s = POC Activated Clotting Time) [facility] CenterVhfzwdzPBNHQRNIKK2808-38-54 16:31:00 Test Item Value Reference Range Interpretation Comments POC Activated Clotting Time (test code 153 s = POC Activated Clotting Time) [facility] CenterYgnqzqsCXHGXWZWZZ6174-70-18 14:37:00 Test Item Value Reference Range Interpretation Comments POC Activated Clotting Time (test code 454 s = POC Activated Clotting Time) [facility] CenterStxrkwpCOTDUJLHFR3157-16-65 14:37:00 Test Item Value Reference Range Interpretation Comments POC Activated Clotting Time (test code 454 s = POC Activated Clotting Time) [place] 513011-04-09 14:37:00 Test Item Value Reference Range Interpretation Comments POC Activated Clotting Time (test code 454 s = POC Activated Clotting Time) [facility] CenterMzyyfcyZJSNEGDZHL5041-18-94 14:37:00 Test Item Value Reference Range Interpretation Comments POC Activated Clotting Time (test code 454 s = POC Activated Clotting Time) [facility] CenterMoimtqxZYXAJVIIXT0907-37-10 14:37:00 Test Item Value Reference Range Interpretation Comments POC Activated Clotting Time (test code 454 s = POC Activated Clotting Time) [facility] CenterTgxxhgsYRSJXVORKX8104-14-57 14:37:00 Test Item Value Reference Range Interpretation Comments POC Activated Clotting Time (test code 454 s = POC Activated Clotting Time) [facility] CenterAdthvthIJAHPAHDPP9390-69-12 14:37:00 Test Item Value Reference Range Interpretation Comments POC Activated Clotting Time (test code 454 s = POC Activated Clotting Time) [facility] CenterIfzmjbyAPWJMWYBDW5998-66-58 14:13:00 Test Item Value Reference Range Interpretation Comments POC Activated Clotting Time (test code 354 s = POC Activated Clotting Time) [facility] CenterYwpkuvjTSAQBLQIXI9859-80-55 14:13:00 Test Item Value Reference Range Interpretation Comments POC Activated Clotting Time (test code 354 s = POC Activated Clotting Time) [facility] CenterCcliyqjKCDEPJYCVK0249-03-36 14:13:00 Test Item Value Reference Range Interpretation Comments POC Activated Clotting Time (test code 354 s = POC Activated Clotting Time) [facility] CenterPrdfeorRZLYELWLME4499-75-84 14:13:00 Test Item Value Reference Range Interpretation Comments POC Activated Clotting Time (test code 354 s = POC Activated Clotting Time) [facility] CenterQlozxbhTZTMHGPCJN7461-91-49 14:13:00 Test Item Value Reference Range Interpretation Comments POC Activated Clotting Time (test code 354 s = POC Activated Clotting Time) [facility] CenterXwvnnwaYXEKMEDKRO4371-87-95 14:13:00 Test Item Value Reference Range Interpretation Comments POC Activated Clotting Time (test code 354 s = POC Activated Clotting Time) [facility] CenterYxbgvmiJOLHMUCMRU7666-05-55 14:13:00 Test Item Value Reference Range Interpretation Comments POC Activated Clotting Time (test code 354 s = POC Activated Clotting Time) [facility] BANK TCYMANA8940-09-93 10:37:00Negative (08/29/20 5:37 AM) [facility] ZUYHG6305-52-87 10:37:18438Rebjeauf HermannCHEM PANEL 2020-08-29 10:37:0028[facility] HermannCHEM RZGRS7676-62-00 10:37:001.01[facility] HermannCHEM RLDZL4071-22-23 10:37:52827Jraecemn HermannCHEM KGKAP7768-82-57 10:37:003.8[facility] HermannCHEM QAGWI2337-46-10 10:37:48367Reiumdkl HermannCHEM SQEUN9186-68-33 10:37:0028[facility] HermannCHEM HJPCH1718-37-58 10:37:009.8 [facility] HermannCHEM FGWFK5724-59-08 10:37:0011.8[facility] HermannCHEM PANEL 2020-08-29 10:37:0059[facility] HermannCHEM QVUDN8785-71-47 10:37:002.9[facility] LofelxsPXWYMPGNGM3925-28-76 10:37:006.8[facility] XifjvpaZBLXFJHCTY1319-22-11 10:37:004.47[facility] OmbwowgHHIUVCXOKD9502-44-87 10:37:0010.6[facility] VDMYDPWHTC4448-21-96 10:37:0034.0[facility] WqitnjeRQGQBCWDHO9588-12-90 10:37:00 76.1[facility] LdgrnmmBYTCDCTTER8658-74-60 10:37:00 Test Item Value Reference Range Interpretation Comments MCH (test code = MCH) 23.8 pg 27.0-31.0 [facility] JfqlcleQPAHTUGIZM2579-06-25 10:37:0031.3[facility] HermannHEMATOLOGY 2020-08-29 10:37:0018.2[facility] DrblnrnPTVVOIKKEQ7799-77-90 10:37:79222Ojbvewes XaadxdnJIOGDVGGJY5639-66-14 10:37:007.5[facility] HefxmwaSGUREILVFS6584-26-39 10:37:00 Test Item Value Reference Range Interpretation Comments PT (test code = PT) 12.8 s 12.0-14.7 [facility] LtkktezPSBQGCTLCE5362-19-57 10:37:00 Test Item Value Reference Range Interpretation Comments INR (test code = INR) 0.97 1 0.85-1.17 [facility] SavwqwbIOIDIKJKBJ5280-96-61 10:37:00 Test Item Value Reference Range Interpretation Comments PTT (test code = PTT) 25.0 s 22.9-35.8 [facility] LxzyqqzEOOQKRZXTD7601-18-39 10:37:0070.5[facility] HermannHEMATOLOGY 2020-08-29 10:37:0018.8[facility] EpkscioHLAHWYNFFL6153-33-49 10:37:009.5[facility] HwklrxgOTOIWBMOLT8814-84-49 10:37:000.9[facility] AzcyourBVUVKSKNGG6414-40-21 10:37:000.3[facility] VivzlnjWCYTNYBCER8257-55-58 10:37:004.8[facility] AJQQSLFLPJ7668-31-50 10:37:001.3[facility] EkkmwmmEHDWKLXNBC4426-83-22 10:37:000.6 [facility] QqqpzpkKUKKEOMORO6574-66-81 10:37:000.1[facility] HermannHEMATOLOGY 2020-08-29 10:37:001+ *ABN*(08/29/20 5:37 AM)[facility] QzilhvoVROMZZMDUS3787-65-48 10:37:00Not Detected (08/29/20 5:37 AM)[facility] HermannBLOOD BANK RESULTS 2020-08-29 10:37:00Negative (08/29/20 5:37 AM)[facility] HermannCHEM ZFIUC2383-05-98 10:37:17639Acphyqsn HermannCHEM ERBYW6570-48-54 10:37:0028[facility] HermannCHEM MUBNU5215-33-53 10:37:001.01[facility] HermannCHEM ZQUPD6132-55-31 10:37:73893 [facility] HermannCHEM OQYFW3330-83-77 10:37:003.8[facility] HermannCHEM PANEL 2020-08-29 10:37:41710Tkmouozq HermannCHEM QDDTP8822-33-60 10:37:0028[facility] HermannCHEM CVONU3162-23-37 10:37:009.8[facility] HermannCHEM BSRRH6736-16-20 10:37:0011.8[facility] HermannCHEM MRFLI9729-65-78 10:37:0059[facility] HermannCHEM SHONM3454-35-45 10:37:002.9[facility] QrpftuzFUBUNHQPVN6446-55-16 10:37:006.8 [facility] VfccrhiMORTEZZUKP9546-42-43 10:37:004.47[facility] HermannHEMATOLOGY 2020-08-29 10:37:0010.6[facility] AtcerurTEODQNNYHJ3320-53-85 10:37:0034.0[facility] VxffovsPEWFNAGPXD1968-79-69 10:37:0076.1[facility] QrhgvlwUJAUIDGEBH9307-96-75 10:37:00 Test Item Value Reference Range Interpretation Comments MCH (test code = MCH) 23.8 pg 27.0-31.0 [facility] YbihrbeUIXHKYHKUX6548-57-55 10:37:0031.3[facility] HermannHEMATOLOGY 2020-08-29 10:37:0018.2[facility] YwbowxgRWIVYXPFOK7337-49-56 10:37:33618Vydeznlg JglwrjyXIPAAQDVEN9404-19-01 10:37:007.5[facility] GghwiutGDWAZAJFFV6247-64-80 10:37:00 Test Item Value Reference Range Interpretation Comments PT (test code = PT) 12.8 s 12.0-14.7 [facility] JymorrqSQTYVTHMRI6155-23-04 10:37:00 Test Item Value Reference Range Interpretation Comments INR (test code = INR) 0.97 1 0.85-1.17 [facility] UaivfgiRJSWANDZFW9196-32-42 10:37:00 Test Item Value Reference Range Interpretation Comments PTT (test code = PTT) 25.0 s 22.9-35.8 [facility] YvjzzogYIEWCDWITK9545-66-49 10:37:0070.5[facility] HermannHEMATOLOGY 2020-08-29 10:37:0018.8[facility] YposbpgCHAAYOCOCU2530-45-69 10:37:009.5[facility] EhuekcqQJVRYJSWTS6954-66-41 10:37:000.9[facility] LcjufmuPSTKTGVREO2983-16-05 10:37:000.3[facility] GbjcpofRGWAEBREQP8985-00-19 10:37:004.8[facility] ZNNCDTWVOG9210-86-14 10:37:001.3[facility] BtbmcyeXUVJCQMRWP4495-26-66 10:37:000.6 [facility] NohcfruYIVAKUMXPG1475-45-15 10:37:000.1[facility] HermannHEMATOLOGY 2020-08-29 10:37:001+ *ABN*(08/29/20 5:37 AM)[facility] KwlitxlVBVDHNAQWM2934-27-75 10:37:00Not Detected (08/29/20 5:37 AM)[facility] HermannBLOOD BANK RESULTS 2020-08-29 10:37:00Negative (08/29/20 5:37 AM)[facility] HermannCHEM HOMTY8837-00-40 10:37:01494Ocoqrgut HermannCHEM DDPMM4647-94-57 10:37:0028[facility] HermannCHEM AFDZW9208-94-41 10:37:001.01[facility] HermannCHEM ZGEWA5559-30-57 10:37:67090 [facility] HermannCHEM DZELR8768-86-80 10:37:003.8[facility] HermannCHEM PANEL 2020-08-29 10:37:57508Lhambuqs HermannCHEM TDMPE6618-98-14 10:37:0028[facility] HermannCHEM HEDXH3778-86-71 10:37:009.8[facility] HermannCHEM RFNGT4882-71-10 10:37:0011.8[facility] HermannCHEM WRDHY4994-01-31 10:37:0059[facility] HermannCHEM LGBDH7059-23-64 10:37:002.9[facility] WqdzucxSKUZCZLASG0397-21-42 10:37:006.8 [facility] GolzcubHMPXKVQRKW4003-17-08 10:37:004.47[facility] HermannHEMATOLOGY 2020-08-29 10:37:0010.6[facility] YjrydavTVCOFCZJLU6767-60-06 10:37:0034.0[facility] PijjgkmEAFFKWFQEN3117-90-06 10:37:0076.1[facility] EhihoghNOTIBWSAKD2694-06-15 10:37:00 Test Item Value Reference Range Interpretation Comments MCH (test code = MCH) 23.8 pg 27.0-31.0 [facility] ArgsfodMAFWWTCDQR7172-04-83 10:37:0031.3[facility] HermannHEMATOLOGY 2020-08-29 10:37:0018.2[facility] RbmvaovOPIPPACZGH5979-51-72 10:37:56311Nnhphkth NjxcnlhLVFUNRFGSX9846-78-00 10:37:007.5[facility] FixdvuxAWEOWQXJYS0561-37-06 10:37:00 Test Item Value Reference Range Interpretation Comments PT (test code = PT) 12.8 s 12.0-14.7 [facility] IravaoqHLWVQZVMWR2267-97-07 10:37:00 Test Item Value Reference Range Interpretation Comments INR (test code = INR) 0.97 1 0.85-1.17 [facility] YyvaqlzUBBJTLNMFZ7418-73-66 10:37:00 Test Item Value Reference Range Interpretation Comments PTT (test code = PTT) 25.0 s 22.9-35.8 [facility] PmvuivuTPHXLAFRCV6131-09-32 10:37:0070.5[facility] HermannHEMATOLOGY 2020-08-29 10:37:0018.8[facility] PazeovnNPOFETWNHX5240-92-16 10:37:009.5[facility] FykfbqrURGWGSNZVV2740-63-39 10:37:000.9[facility] HlncicmIXTSGQWTVJ3861-74-48 10:37:000.3[facility] PhxuurdIKRLUFKYXX6509-40-94 10:37:004.8[facility] EMRGBYAOSC0835-99-91 10:37:001.3[facility] VkdcyprKEVQLDLREV8138-54-01 10:37:000.6 [facility] RygymdlIYHOFIFAFN3888-81-04 10:37:000.1[facility] HermannHEMATOLOGY 2020-08-29 10:37:001+ *ABN*(08/29/20 5:37 AM)[facility] QxgehlkWAARZUKLPD4274-98-78 10:37:00Not Detected (08/29/20 5:37 AM)[facility] HermannBLOOD BANK RESULTS 2020-08-29 10:37:00Negative (08/29/20 5:37 AM)[facility] HermannCHEM ZYSEX0763-01-12 10:37:56796Qphfipfw HermannCHEM YOZZS6400-97-88 10:37:0028[facility] HermannCHEM AWAYL9728-36-67 10:37:001.01[facility] HermannCHEM SUGFK6992-39-85 10:37:56504 [facility] HermannCHEM LCMFA1678-85-84 10:37:003.8[facility] HermannCHEM PANEL 2020-08-29 10:37:38240Auwqurmo HermannCHEM YOAPP3172-63-33 10:37:0028[facility] HermannCHEM ZJYEC6386-74-06 10:37:009.8[facility] HermannCHEM HFEZT2960-93-92 10:37:0011.8[facility] HermannCHEM DJBWA9997-35-58 10:37:0059[facility] HermannCHEM ESTUE0518-08-80 10:37:002.9[facility] MeldhupXJHPUCEARM9897-85-10 10:37:006.8 [facility] RzljmmhMMZBLITOVD7397-27-43 10:37:004.47[facility] HermannHEMATOLOGY 2020-08-29 10:37:0010.6[facility] OsaiexfVLWHRUHPDY1212-86-48 10:37:0034.0[facility] WkubffxPZNMDUGPNM7708-51-85 10:37:0076.1[facility] NralamfGXEHYYMLZF6080-06-15 10:37:00 Test Item Value Reference Range Interpretation Comments MCH (test code = MCH) 23.8 pg 27.0-31.0 [facility] LecobvoXVEOEBRQMQ6606-21-76 10:37:0031.3[facility] HermannHEMATOLOGY 2020-08-29 10:37:0018.2[facility] DbwdlocIVDLIZAOWN5727-61-82 10:37:26344Ntrmstkq TcmwuhhQWMBUPBFGF7813-00-95 10:37:007.5[facility] LgfyudcWFKMNHQQGI0421-43-58 10:37:00 Test Item Value Reference Range Interpretation Comments PT (test code = PT) 12.8 s 12.0-14.7 [facility] WwdmuskQRYDJQMCWU4711-98-60 10:37:00 Test Item Value Reference Range Interpretation Comments INR (test code = INR) 0.97 1 0.85-1.17 [facility] MwkhnksHSMNMGQZAI3697-10-37 10:37:00 Test Item Value Reference Range Interpretation Comments PTT (test code = PTT) 25.0 s 22.9-35.8 [facility] SpljhurIQAINUBVPP9414-70-69 10:37:0070.5[facility] HermannHEMATOLOGY 2020-08-29 10:37:0018.8[facility] MdbpekaTWHTJXCZFY5652-37-71 10:37:009.5[facility] FmgnfneOAQDQYQCCO3522-41-00 10:37:000.9[facility] TzkrhnaUMNTJKSWRK9864-32-08 10:37:000.3[facility] PrsoserEXCTXUUKSD1387-99-14 10:37:004.8[facility] QTVECTYOEH9628-97-54 10:37:001.3[facility] JoumesuAWBBOXWROX4937-07-19 10:37:000.6 [facility] PudlxaxGLHWZXVZZX0880-41-08 10:37:000.1[facility] HermannHEMATOLOGY 2020-08-29 10:37:001+ *ABN*(08/29/20 5:37 AM)[facility] PtzdsrkDFELHPPOBS2811-07-87 10:37:00Not Detected (08/29/20 5:37 AM)[facility] HermannBLOOD BANK RESULTS 2020-08-29 10:37:00Negative (08/29/20 5:37 AM)[facility] HermannCHEM KZQZV6199-38-29 10:37:69789Sonalxgn HermannCHEM UREPD3272-38-67 10:37:0028[facility] HermannCHEM FZPLV8436-19-40 10:37:001.01[facility] HermannCHEM FSUQE5272-58-44 10:37:27951 [facility] HermannCHEM BLCLF5085-38-67 10:37:003.8[facility] HermannCHEM PANEL 2020-08-29 10:37:80322Gtskhmlv HermannCHEM ILIDP5216-71-12 10:37:0028[facility] HermannCHEM GGGQM5780-96-67 10:37:009.8[facility] HermannCHEM VAYCC9647-43-54 10:37:0011.8[facility] HermannCHEM PZUOD3106-87-52 10:37:0059[facility] HermannCHEM ARBVT7842-27-31 10:37:002.9[facility] DlyiurxLHDDFVJESL8480-36-01 10:37:006.8 [facility] NcoqhxgKNFRFQSZRE2788-61-43 10:37:004.47[facility] HermannHEMATOLOGY 2020-08-29 10:37:0010.6[facility] YicgxihVZDIXVOYEE0403-61-85 10:37:0034.0[facility] WszaxkfPRFUMVUXKJ1024-02-47 10:37:0076.1[facility] UhojbfeEBWRXUXDIA8615-26-29 10:37:00 Test Item Value Reference Range Interpretation Comments MCH (test code = MCH) 23.8 pg 27.0-31.0 [facility] PqxqxwxCOXVQYYFGD8943-90-91 10:37:0031.3[facility] HermannHEMATOLOGY 2020-08-29 10:37:0018.2[facility] JpafnoqENLAYPYMXF8725-64-75 10:37:39738Nrfmncyk CeasaojDDXVTPKJKX5367-32-69 10:37:007.5[facility] SseubgoLMQCFIKMJK0346-80-25 10:37:00 Test Item Value Reference Range Interpretation Comments PT (test code = PT) 12.8 s 12.0-14.7 [facility] XjmjhhwVGGPTNCUNS4923-77-08 10:37:00 Test Item Value Reference Range Interpretation Comments INR (test code = INR) 0.97 1 0.85-1.17 [facility] ZyeatzyFJDJRXGMPQ8752-37-81 10:37:00 Test Item Value Reference Range Interpretation Comments PTT (test code = PTT) 25.0 s 22.9-35.8 [facility] FmtyrjlOALKFFCSHB1482-86-85 10:37:0070.5[facility] HermannHEMATOLOGY 2020-08-29 10:37:0018.8[facility] HqncrnbESEYHTHKLH2663-89-45 10:37:009.5[facility] CgpccwpFYBKGGZGUO0182-25-74 10:37:000.9[facility] WwyrzvdVGDTYBSQVP2462-30-20 10:37:000.3[facility] RvekichAPVTLZFJOS0811-62-31 10:37:004.8[facility] YTSJXHSNSM4025-58-49 10:37:001.3[facility] InwdzdrIGWYJRZLXO9253-58-41 10:37:000.6 [facility] MbnalcpORHWHIJKHM7436-23-93 10:37:000.1[facility] HermannHEMATOLOGY 2020-08-29 10:37:001+ *ABN*(08/29/20 5:37 AM)[facility] MdqqtofTYOTANADLA3377-59-12 10:37:00Not Detected (08/29/20 5:37 AM)[facility] HermannBLOOD BANK RESULTS 2020-08-29 10:37:00Negative (08/29/20 5:37 AM)[facility] HermannCHEM LNIJO2884-74-19 10:37:33500Egrjangq HermannCHEM OHEVW8397-52-34 10:37:0028[facility] HermannCHEM HOTAZ2120-10-93 10:37:001.01[facility] HermannCHEM VHOWL3778-21-31 10:37:01966 [facility] HermannCHEM SZDYP9561-18-75 10:37:003.8[facility] HermannCHEM PANEL 2020-08-29 10:37:41306Kzaqxqrp HermannCHEM LUMIW4900-28-20 10:37:0028[facility] HermannCHEM XISOF5671-96-87 10:37:009.8[facility] HermannCHEM QSMZA9753-42-53 10:37:0011.8[facility] HermannCHEM BMUOK7934-63-31 10:37:0059[facility] HermannCHEM JZTEK7234-58-55 10:37:002.9[facility] ZqheuhrZNFHZFTCFP7853-81-75 10:37:006.8 [facility] BfjtwcyOVWMXBKGXY3949-74-59 10:37:004.47[facility] HermannHEMATOLOGY 2020-08-29 10:37:0010.6[facility] RhyyqzeMGPBJSAURL8441-89-93 10:37:0034.0[facility] HgregjqGSOXGNAGLU2968-21-61 10:37:0076.1[facility] RkyukfuCOHXOHGITZ6900-23-37 10:37:00 Test Item Value Reference Range Interpretation Comments MCH (test code = MCH) 23.8 pg 27.0-31.0 [facility] TtsqxtcIBRKGVSTVM2631-23-66 10:37:0031.3[facility] HermannHEMATOLOGY 2020-08-29 10:37:0018.2[facility] XldzzdyNUPBPIIDNQ8901-27-89 10:37:90120Cpdorubk HqsfufgBOEJBBLKSS0197-83-48 10:37:007.5[facility] BonuchmKWEGOJRTQP0857-04-13 10:37:00 Test Item Value Reference Range Interpretation Comments PT (test code = PT) 12.8 s 12.0-14.7 [facility] OvncjoeJTASUOCLED4031-53-15 10:37:00 Test Item Value Reference Range Interpretation Comments INR (test code = INR) 0.97 1 0.85-1.17 [facility] TrxxvfrPMVURWKUOG4570-67-72 10:37:00 Test Item Value Reference Range Interpretation Comments PTT (test code = PTT) 25.0 s 22.9-35.8 [facility] KzfofntSIAKWJGNEB5198-98-17 10:37:0070.5[facility] HermannHEMATOLOGY 2020-08-29 10:37:0018.8[facility] VyybzbeOSSPRJLFGN5901-36-51 10:37:009.5[facility] AvkpxahIZDABQZPIN3232-39-68 10:37:000.9[facility] FmtcodmBUSAAIMRKH0682-32-96 10:37:000.3[facility] UnivietWILJJHZPBA5161-76-81 10:37:004.8[facility] SMWVNJZMCC7464-94-22 10:37:001.3[facility] FvhpddiHPMXBGKWRY3683-08-17 10:37:000.6 [facility] JiuiceiSXTOQWRQIB3124-28-32 10:37:000.1[facility] HermannHEMATOLOGY 2020-08-29 10:37:001+ *ABN*(08/29/20 5:37 AM)[facility] AfxfqarDGOLROHPRZ7201-42-40 10:37:00Not Detected (08/29/20 5:37 AM)[facility] HermannBLOOD BANK RESULTS 2020-08-29 10:37:00Negative (08/29/20 5:37 AM)[facility] HermannCHEM OVKMP7224-47-94 10:37:40358Vwmyvmuu HermannCHEM YVZQE2985-64-76 10:37:0028[facility] HermannCHEM XKWOC5338-23-86 10:37:001.01[facility] HermannCHEM EQWEP2730-57-62 10:37:79518 [facility] HermannCHEM WWWTA6247-02-62 10:37:003.8[facility] HermannCHEM PANEL 2020-08-29 10:37:07715Txtbyzwc HermannCHEM AZQBT3622-18-96 10:37:0028[facility] HermannCHEM ERMUS0323-71-83 10:37:009.8[facility] HermannCHEM BPJLD7222-63-32 10:37:0011.8[facility] HermannCHEM EOEJH1766-26-84 10:37:0059[facility] HermannCHEM SMHDU4985-35-84 10:37:002.9[facility] DngoweoHGCQEKLGZQ3105-32-25 10:37:006.8 [facility] XhnggitGRQWMMGHQP6216-26-59 10:37:004.47[facility] HermannHEMATOLOGY 2020-08-29 10:37:0010.6[facility] LelpfuoTAZPLIKOYL8108-14-94 10:37:0034.0[facility] AvngxszXXSVUTBLIC2138-79-14 10:37:0076.1[facility] RnenlryMGWJVAOKGO2142-72-57 10:37:00 Test Item Value Reference Range Interpretation Comments MCH (test code = MCH) 23.8 pg 27.0-31.0 [facility] QhxuwauFEBXVWIPJG1512-01-16 10:37:0031.3[facility] HermannHEMATOLOGY 2020-08-29 10:37:0018.2[facility] AfcfwunRNSZJCSPYV9002-64-65 10:37:79844Wxwoqeea TzomfesYEDNKXWKQP1634-09-70 10:37:007.5[facility] JbcznrmLDIBLNEAEN2068-25-53 10:37:00 Test Item Value Reference Range Interpretation Comments PT (test code = PT) 12.8 s 12.0-14.7 [facility] NsywobfMAEWLGASXN2814-00-14 10:37:00 Test Item Value Reference Range Interpretation Comments INR (test code = INR) 0.97 1 0.85-1.17 [facility] CnqbufuNLCTBFSHLE7222-73-28 10:37:00 Test Item Value Reference Range Interpretation Comments PTT (test code = PTT) 25.0 s 22.9-35.8 [facility] ZmywerkGIMRAEDANF8749-75-19 10:37:0070.5[facility]annHEMATOLOGY 2020-08-29 10:37:0018.8[facility] QdevpigGWNUIRWKTD7730-79-61 10:37:009.5[facility] UcepdtmKLHCFAFVSP3377-68-76 10:37:000.9[facility] HyqguxzKKIKNVYWLF1435-67-02 10:37:000.3[facility] TxehtquGPYMULKJUV0539-62-15 10:37:004.8[facility] DSIFMJWVFF8431-43-71 10:37:001.3[facility] EjpbpfuMDTBUFTZPK8368-46-38 10:37:000.6 [facility] WpyockbZMODYOVFZQ6656-65-05 10:37:000.1[facility]annHEMATOLOGY 2020-08-29 10:37:001+ *ABN*(08/29/20 5:37 AM)[facility]WkartreDTIQTESFYZ5525-69-56 10:37:00Not Detected (08/29/20 5:37 AM)[facility], TV,PCR, IN EAEVW7119-93-98 15:38:00 Test Item Value Reference Range Interpretation Comments FT (test code = CHTR) Not detected (qualifier Not Detected N value) FT (test code = Not detected (qualifier Not Detected N NGONO) value) FT (test code = TRVG) Not detected (qualifier Not Detected N value) [facility] UXRABJCTGVI6492-95-77 10:57:00 Test Item Value Reference Range Interpretation Comments Color (test code = UCOLR) Dk. Yellow Clarity (test code = UCLAR) Hazy Glucose (test code = UGLUC) NEGATIVE NEGATIVE N Bilirubin (test code = UBILI) NEGATIVE NEGATIVE N Ketones (test code = UKET) NEGATIVE NEGATIVE N Specific [place] (test code = 1.025 1.005-1.030 A USPGR) [...] None Seen None Seen N URCRYS) [facility]"
[2022-06-11] MEDS ORDERED: dexAMETHasone 10 MG/ML VIAL ONE (17:09)
[2022-06-11] MEDS ORDERED: LORazepam 2 MG/ML VIAL ONE (17:09)
[2022-06-11] MEDS ORDERED: DIAZEPAM 10 MG/2 ML INJ SYRINGE ONE (18:09)
--- NOTE | 2022-06-11 18:24 | EDPHYS ---
Physician Documentation [facility] Name: Marjan Kolb Age: 67 yrs Sex: Female : 1955 Arrival Date: 06/11/2022 Time: 16:09 Bed 16 Private MD: ED Physician Jose Shah HPI: 06/11 16:30 This 67 yrs old Female presents to ER via Wheelchair with complaints of Headache. jmm 16:30 This is a 67-year-old female with history of anxiety, atrial fibrillation, bipolar, HIV jmm the presents emerged part with complaints of right-sided upper back and neck pain. Patient states she has had similar pain for the past year and is currently seeing a specialist for this. Patient states she is at the ER because of the pain and she is following up from her appointment in June. Denies any fever. Denies any new injury.. Historical: - Allergies: 16:17 Azithromycin; iw 16:17 Bactrim; iw 16:17 butorphanol; iw 16:17 Fentanyl; iw 16:17 Reglan; iw 16:17 Sulfa (Sulfonamide Antibiotics); iw 16:17 TRIMETHOPRIM; iw - PMHx: 16:17 Anxiety; Atrial fibrillation; Bipolar disorder; esophageal varicies; Hepatitis; HIV iw positive; Hypertensive disorder; Migraine; panic attack; - Immunization history:: Client reports receiving the 2nd dose of the Covid vaccine. - Social history:: Smoking status: Patient/guardian denies using tobacco, the patient reports quitting approximately 2 years ago. ROS: 16:30 Constitutional: Negative for fever, chills, and weight loss. jmm 16:30 Neck: Positive for pain with movement. 16:30 All other systems are negative. Exam: 16:30 Constitutional: This is a well developed, well nourished patient who is awake, alert, jmm and in no acute distress. Head/Face: atraumatic. Eyes: EOMI, no conjunctival erythema appreciated ENT: Moist Mucus Membranes 16:30 Chest/axilla: Normal chest wall appearance and motion. Cardiovascular: Regular rate and rhythm. No edema appreciated Respiratory: Normal respirations, no respiratory distress appreciated Abdomen/GI: Non distended 16:30 Skin: General appearance color normal MS/ Extremity: Moves all extremities, no obvious deformities appreciated, no edema noted to the lower extremities Neuro: Awake and alert Psych: Behavior is normal, Mood is normal, Patient is cooperative and pleasant 16:30 Neck: C-spine: appears grossly normal. 16:30 Back: Right trapezius pain on palpation. Vital Signs: 16:15 BP 199 / 102; Pulse 55; Resp 16; Temp 97.1; Pulse Ox 100% on R/A; Weight 80.74 kg; iw Height 5 ft. 4 in. (162.56 cm); Pain 10/10; 17:14 BP 160 / 130; Pulse 54; Resp 16; Pulse Ox 97% on R/A; jh5 18:09 BP 209 / 115; Pulse 57; Pulse Ox 99% ; jh5 16:15 Body Mass Index 30.55 (80.74 kg, 162.56 cm) iw MDM: 16:44 Patient medically screened. [facility] 18:20 Data reviewed: vital signs, nurses notes. I considered the following discharge [facility] prescriptions or medication management in the emergency department Medications were administered in the Emergency Department. See JUL. 19:32 I considered the following discharge prescriptions or medication management in the [facility] emergency department Antibiotics: At this time antibiotics are not recommended. Admission orders: after a detailed discussion of the patient's condition and case, the admit orders are written by me. ED course: Pain relieved in the ED. Patient advised to follow-up with her PCP. I do not concerned an acute process. Symptoms been ongoing for the past year. Patient advised follow-up with her PCP and otherwise given strict return precautions.. 06/11 16:30 Order name: Saline Lock; Complete Time: 17:12 [facility] Administered Medications: 17:08 Drug: Ativan (LORazepam) 1 mg Route: IVP; Site: left forearm; 5 17:08 Drug: Decadron - Dexamethasone 10 mg Route: IVP; Site: left forearm; 5 18:16 Not Given (Pt scratched her IV out of her arm. ): Valium (diazepam) 5 mg IVP once [facility] 18:16 Drug: Valium (diazepam) 5 mg Route: IM; Site: left deltoid; jh5 Disposition: 19:15 Co-signature as Attending Physician, Jose Shah DO I was immediately available on-site ms3 in the Emergency Department for consultation in the care of the patient. Disposition Summary: 06/11/22 18:24 Discharge Ordered Location: Home jmm Condition: Stable jmm Diagnosis - Chronic Neck Pain jmm Followup: jmm - With: Private Physician - When: 2 - 3 days - Reason: Recheck today's complaints, Continuance of care, Re-evaluation by your physician Discharge Instructions: - Discharge Summary Sheet jmm - Chronic Pain, Adult jmm Forms: - Medication Reconciliation Form jmm - Thank You Letter jmm - Antibiotic Education jmm - Prescription Opioid Use jmm Signatures: Lv Boudreaux PA PA jmm Jacquelin Meier, RN RN iw Jose Shah DO DO ms3 Sharee Castrejon RN RN jh5
--- NOTE | 2022-06-11 18:24 | ER ---
Nurse's Notes [facility] Name: Marjan Kolb Age: 67 yrs Sex: Female : 1955 Arrival Date: 06/11/2022 Time: 16:09 Bed 16 Private MD: Diagnosis: Chronic Neck Pain Presentation: 06/11 16:15 Chief complaint: Patient states: i got this pain behind my neck and head, every 30 iw minutes , it's been going on for a year , is due to see a neurologist in June. Coronavirus screen: At this time, the client does not indicate any symptoms associated with coronavirus-19. Ebola Screen: Patient negative for fever greater than or equal to 101.5 degrees Fahrenheit, and additional compatible Ebola Virus Disease symptoms Patient denies exposure to infectious person. Patient denies travel to an Ebola-affected area in the 21 days before illness onset. No symptoms or risks identified at this time. Initial Sepsis Screen: Does the patient meet any 2 criteria? No. Patient's initial sepsis screen is negative. Does the patient have a suspected source of infection? No. Patient's initial sepsis screen is negative. Risk Assessment: Do you want to hurt yourself or someone else? Patient reports no desire to harm self or others. Onset of symptoms. 16:15 Method Of Arrival: Wheelchair iw 16:15 Acuity: BLAYNE 3 iw Triage Assessment: 16:34 Headache History: The patient has had previous headaches and this one is similar to jh5 previous episodes. General: Appears in no apparent distress. Behavior is calm, cooperative, appropriate for age. Pain: Pain currently is 6 out of 10 on a pain scale. Pain began gradually, Also complains of. Neuro: No deficits noted. Historical: - Allergies: 16:17 Azithromycin; iw 16:17 Bactrim; iw 16:17 butorphanol; iw 16:17 Fentanyl; iw 16:17 Reglan; iw 16:17 Sulfa (Sulfonamide Antibiotics); iw 16:17 TRIMETHOPRIM; iw - PMHx: 16:17 Anxiety; Atrial fibrillation; Bipolar disorder; esophageal varicies; Hepatitis; HIV iw positive; Hypertensive disorder; Migraine; panic attack; - Immunization history:: Client reports receiving the 2nd dose of the Covid vaccine. - Social history:: Smoking status: Patient/guardian denies using tobacco, the patient reports quitting approximately 2 years ago. Screenin:34 [facility] ED Fall Risk Assessment (Adult) History of falling in the last 3 months, 5 including since admission No falls in past 3 months (0 pts) Confusion or Disorientation No (0 pts) Intoxicated or Sedated No (0 pts) Impaired Gait No (0 pts) Mobility Assist Device Used No (0 pt) Altered Elimination No (0 pt) Score/Fall Risk Level 0 - 2 = Low Risk. Abuse screen: Denies threats or abuse. Denies injuries from another. Nutritional screening: No deficits noted. Tuberculosis screening: No symptoms or risk factors identified. Vital Signs: 16:15 BP 199 / 102; Pulse 55; Resp 16; Temp 97.1; Pulse Ox 100% on R/A; Weight 80.74 kg; iw Height 5 ft. 4 in. (162.56 cm); Pain 10/10; 17:14 BP 160 / 130; Pulse 54; Resp 16; Pulse Ox 97% on R/A; jh5 18:09 BP 209 / 115; Pulse 57; Pulse Ox 99% ; jh5 16:15 Body Mass Index 30.55 (80.74 kg, 162.56 cm) ED Course: 16:09 Patient arrived in ED. as 16:17 Triage completed. 16:17 Arm band placed on. 16:23 Lv Boudreaux PA is PHCP. [facility] 16:23 Jose Shah DO is Attending Physician. [facility] 16:34 Patient has correct armband on for positive identification. Bed in low position. Call 5 light in reach. Side rails up X 1. 16:34 No provider procedures requiring assistance completed. 5 17:03 Inserted saline lock: 22 gauge in left forearm, using aseptic technique. Missed jh5 attempt(s): 22 gauge in right forearm. Administered Medications: 17:08 Drug: Ativan (LORazepam) 1 mg Route: IVP; Site: left forearm; jh5 17:08 Drug: Decadron - Dexamethasone 10 mg Route: IVP; Site: left forearm; jh5 18:16 Not Given (Pt scratched her IV out of her arm. ): Valium (diazepam) 5 mg IVP once jh5 18:16 Drug: Valium (diazepam) 5 mg Route: IM; Site: left deltoid; jh5 Medication: 17:15 VIS not applicable for this client. jh5 Outcome: 18:24 Discharge ordered by MD. sorenson 18:36 Patient left the ED. jh5 Signatures: Lv Boudreaux PA PA jmm Martinez, Amelia as Williams, Irene, RN Sharee Alegria RN RN jh5
[2022-06-11 20:01] VITALS: TEMP 97.1
[2022-06-11 20:11] VITALS: BP 209/115; O2SAT 99
== END 2022-06-11 18:36 | disposition home or self-care (01) ==
LOC: ER 16:08
DX: M54.2 Cervicalgia (principal); R51.9 Headache, unspecified; I10 Essential (primary) hypertension; Z21 Asymptomatic human immunodeficiency virus [HIV] infection status; I48.91 Unspecified atrial fibrillation; Z88.1 Allergy status to other antibiotic agents; Z88.2 Allergy status to sulfonamides; Z88.3 Allergy status to other anti-infective agents; Z88.8 Allergy status to other drugs, medicaments and biological substances
CPT/HCPCS: 96375; 96372; 96374; 99283; J3360; J1100

== ENCOUNTER 2022-06-24 14:39 | Emergency (ER) | payer OTHER ==
--- OUTSIDE RECORDS SUMMARY | 2022-06-24 15:04 | XMS REPORT | Continuity of Care Document ---
:1955 Author Organization [facility] t Address [address] [place] [address] Care Team Providers Name Role Phone Urmila [...] Attending Clinician Unavailable Robbi Bal Attending Clinician [facility] Attending Clinician Unavailable Isaias Whiteside RN Attending Clinician Unavailable TOMY MARIE Attending Clinician Unavailable Reilly Means MD Attending Clinician Ofe Shields MD Attending Clinician Tomy Marie MD Attending Clinician Doctor Unassigned, [place] Attending Clinician Unavailable Bill COLES Attending Clinician Unavailable Bill Rose Attending Clinician CHARITY MCALLISTER Attending Clinician Unavailable Charity Mcallister MD Attending Clinician GADIEL KOEHLER Attending Clinician Unavailable Mike Lund Attending Clinician Unavailable NIKOLAI REEVES Attending Clinician Unavailable Eliseo Arce MD Attending Clinician Carol Ann IZQUIERDO, Sarai Lieberman Attending Clinician [phone] Ashly Pelletier MA Attending Clinician Unavailable Dagoberto Bass MD Attending Clinician [place] Evangelista Attending Clinician Lab, [facility] P[facility] I Attending Clinician Unavailable Monica Rodas MA Attending Clinician Unavailable Agustina Ortiz MA Attending Clinician Unavailable Rody Maguire RN Attending Clinician Unavailable Remigio MD, Saraswathi V. Attending Clinician HEMATPOUR, BEVERLY Attending Clinician Unavailable Caridad SALGUERO, Gloria Attending Clinician Xiao RAMIREZ, Michael Corbin Attending Clinician Unavailable Team, [facility] Attending Clinician UnavailDO PORSHA Newell Attending Clinician Unavailable Gadiel Koehler MD Attending Clinician Tyrone JENKINS, Eveline Sierra Attending Clinician Eladio Colorado RN Attending Clinician Unavailable Geraldine SALGUERO, Leyda Attending Clinician [phone] Selvin RAMIREZ, Stefanie Attending Clinician Unavailable [...] S gabino [facility] COMMUNITY PLAN [id number] 2012 STAR PLUS OON 00:00:00 [facility] [id number] 2019 DUAL COMPLETE HMO 00:00:00 [facility] [id number] 2019 PLUS 00:00:00 [facility] [id number] 2019 [facility] [place] STAR 00:00:00 [employer] MEDICARE ADV [id number] 2019 2019 00:00:00 00:00:00 Problems Condition Condition Condition Status Onset Resolution Last Treating Co mments Source Name Details Category Date Date Treatment Clinician Date Dyspnea, Dyspnea, Disease Active Unive rs unspecifie unspecifie 02-11 it y of d type d type 00:00: [place] [id number] Medical Branch Gastropare Gastropare Disease Active Overview : Methodi sis sis 4-[address] 00:00: [facility] 00 note l might be different from the original. Added automatic ally from request for surgery [id number] Dysphagia Dysphagia Disease Active Overview: Methodi 4-[address] 00:00: g of this [facility]osp[facility] 00 note l might be different from the original. Added automatic ally from request for surgery [id number] CCL / EPS CCL / EPS Diagnosis Active 2020-10-15 Get PVI PVI 3-30 17:07:00 l ABLATION ABLATION 00:00: Patel n W/ CARTO / W/ CARTO / 00 GA / T GA / T Active 08/19/2020 [facility] Food Food Disease Active 2019-05 Methodi intoleranc [...] Active 2014-05 Univers 0-03 ity of 00:00: [place] [facility] Hypovolemi Hypovolemi Disease Active 2014-05 [...] [facility] hoxazole 1-25 Clear 00:00: Garcia 00 [facility] trimetho DA Active SV [facility] prim 1-25 Clear 00:00: Garcia [facility] codeine DA Active SV N/V [facility] 1-25 Clear 00:00: Garcia [facility] Metoclop Propensi Active [place] ramide ty to 12-12 Health adverse 00:00: reaction 00 s BUTORPHA DRUG Active Unknown-Cmnt Un matt NOL INGREDI 11-25 ity of 00:00: [place] [facility] Butorpha Drug Active Unknown - [...] 2017- Univers INGREDI 2-08 ity of 00:00: Medical Branch TRIMETHO DRUG Active Hives 2017- Univers PRIM INGREDI 2-08 ity of 00:00: Medical Branch Fentanyl Drug Active Other - See Unknown Un matt Allergy comments 2 reaction ity o f 00:00: Medical Branch Trimetho Propensi Active Hives Univer s prim ty to 2-08 ity of adverse 00:00: [place] reaction 00 Medical s Branch Fentanyl Allergy Active Unknown 2018 Other [place] to 2-08 reaction( Health substanc [...] Rash 2015-05 Method i hoxazole ty to [address] adverse 00:00: Hospita reaction 00 l [...] to Branch drug Butorpha Allergy Active Hallucinatio 2010- Other U T nol to ns 2-14 reaction( Health substanc 00:00: s): e 00 confusion , Hallucina tions, Hallucina tions, Hallucina tions, Unknown - See comments Bactrim Bactrim Active Get [place] Family History Family Member Diagnosis Comments Start Date Stop Date Source Natural father Diabetes [facility] Natural father Other - see comments [facility] Natural [facility] Natural father Hypertension [facility] Natural father Kidney disease Method ist [facility] Natural mother Cancer [facility] Social History Social Habit Start Date Stop Date Quantity Comments Source History SDOH Hol[place] Alcohol Frequency Hospita l History SDOH [place] Alcohol Std Drinks Hospit al History SDOH [place] Alcohol Binge Hospital History [facility] Alcohol Comment Exposure to 2022-04-30 2022-05-10 Yes University of SARS-CoV-2 (event) 00:00:00 10:25:00 [facility] Tobacco use and 2022-02-11 2022-02-11 Former smokeless Uni versity of exposure 00:00:00 00:00:00 tobacco user [facility] Tobacco Comment 2022-02-11 2022-02-11 Smokes approx 1-2 Un iversity of 00:00:00 00:00:00 cigarettes per [facility] day when she Branch smokes Alcohol intake 2021-07-14 2021-07-14 Ex-drinker [facility] 00:00:00 00:00:00 (finding) Cigarettes smoked 2020-09-05 2020-09-[address] current (pack per 00:00:00 00:00:[facility] - Reported Cigarette 2020-09-05 2020-09-05 [facility] pack-years 00:00:00 00:00:00 Hospital History of tobacco 2011-09-29 User of smokeless University of use 00:00:00 tobacco [facility] Sex [birth year] [facility] 00:00:00 00:00:00 Smoking Status Start Date Stop Date Source Ex-smoker 2022-02-11 00:00:00 2022-02-11 00:00:00 Universi ty [facility] Medications Ordered Filled Start Stop Current Ordering Indication Dosage Frequency Signature Comments Components Source Medication Medication Date Date Medication? Clinician (SIG) Name Name potassium 2021-05- No 10meq 10 mEq, IV Univers chloride in 07-11 Piggyback, i ty of water 10 20:00: 22:00 ONCE, 1 [place] mEq/100 mL 00 :00 dose, On Medic al RTU 10 mEq [facility] 05/10/22 at 1400, Administer over 60 Minutes, 100 mL magnesium 2021-05 No 800mg 800 mg, Uni vers oxide 07-11 Oral, ity of (MAG-OX 20:00: 19:37 ONCE, 1 [place] 400) tablet 00 :00 dose, On Medi porfirio 800 mg [facility] 05/10/22 at 1400, Routine KCL 2021-05 No 40meq 40 mEq, Univers (KLOR-CON 07-11 Oral, ity of M20) tablet 19:15: 19:37 ONCE, 1 [place] 40 mEq 00 :00 dose, On Medical [facility] 05/10/22 at 1315, JOE hydralAZINE 2021-05 No 10mg 10 mg, Uni vers (APRESOLINE 07-11 Slow IV ity of ) injection 18:45: 18:42 [place] 10 mg 00 :00 ONCE, 1 Medical dose, On [facility] 05/10/22 at 1245, JOE NaCl 0.9% 2021-05 No 1000mL at 999 Uni vers (NS) bolus 07-11 mL/hr, ity of infusion 17:45: 20:00 1,000 mL, [place] 1,000 mL 00 :00 IV Medical Infusion, Branch ONCE, 1 dose, On [facility] 05/10/22 at 1145, JOE cefpodoxime 2021-05- Yes [id number] 100mg Take 1 Univers 100 mg 2-17 12-25 tablet by ity of tablet 00:00: 05:59 mouth in [place] 00 :00 the [facility] and 1 tablet in the evening. Do all this for 7 days. cefpodoxime 2021-05- Yes [id number] 100mg Take 1 Univers 100 mg 2-17 12-25 tablet by ity of tablet 00:00: 05:59 mouth in [place] 00 :00 [facility] and 1 tablet in the evening. Do all this for 7 days. cefpodoxime 2021-05- Yes [id number] 100mg Take 1 Univers 100 mg 2-17 12-25 tablet by ity of tablet 00:00: 05:59 mouth in [place] 00 :00 the [facility] and 1 tablet in the evening. Do [...] Infusion, Medical ONCE, 1 Branch dose, On [facility] 05/06/22 at 1800, JOE ketorolac 2021-05- No 15mg 15 mg, Unive rs (TORADOL) 2-15 12-15 Slow IV ity of injection 22:00: 22:19 Push, [place] 15 mg 00 :00 ONCE, 1 Medical dose, On Branch [facility] 05/06/22 at 1600, JOE NaCl 0.9% 2021-05- No 1000mL at 999 Uni vers (NS) bolus 2-15 12-15 mL/hr, ity of infusion 22:00: 23:41 1,000 mL, [place] 1,000 mL 00 :00 IV Medical Infusion, Branch ONCE, 1 dose, On [place] 05/06/22 at 1600, JOE ondansetron 2021-05- No 8mg 8 mg, Slow Univers (ZOFRAN 2-15 12-15 IV Push, ity of (PF)) 21:15: 22:19 ONCE, 1 [place] injection 8 00 :00 dose, On Medi porfirio mg [place] 05/06/22 at 1515, JOE ondansetron 2021-05 Yes [id number] 1-2 U nivers 4 mg tablet 2-15 tablets ity o f 00:00: every 8 [place] 00 hours as Medical needed for Branch nausea benzonatate 2021-05 Yes [id number] 200mg Take 1 Univers 200 mg 2-15 capsule by ity of capsule 00:00: mouth 3 [place] 00 (three) Medical times Branch daily as needed for Cough. albuterol 2021-05 Yes [id number] 2{puff} Inhale 2 Univers 90 2-15 Puffs ity of mcg/actuati 00:00: every 4 [place] on inhaler 00 (four) Medical hours as Branch needed for Wheezing or Shortness of Breath. butalbital- 2021-05 Yes [id number] 1{tbl} Take 1 Univers acetaminoph 2-15 tablet by ity of en-caff 00:00: mouth [place] 50-325-40 00 every 4 Medical mg tablet (four) Branch hours as needed (headache) . ondansetron 2021-05 Yes [id number] 1-2 U nivers 4 mg tablet 2-15 tablets ity o f 00:00: every 8 [place] 00 hours as Medical needed for Branch nausea benzonatate 2021-05 Yes [id number] 200mg Take 1 Univers 200 mg 2-15 capsule by ity of capsule 00:00: mouth 3 [place] 00 (three) Medical times Branch daily as needed for Cough. albuterol 2021-05 Yes [id number] 2{puff} Inhale 2 Univers 90 2-15 Puffs ity of mcg/actuati 00:00: every 4 [place] on inhaler 00 (four) Medical hours as Branch needed for Wheezing or Shortness of Breath. butalbital- 2021-05 Yes [id number] 1{tbl} Take 1 Univers acetaminoph 2-15 tablet by ity of en-caff 00:00: mouth [place] 50-325-40 00 every 4 Medical mg tablet (four) Branch hours as needed (headache) . ondansetron 2021-05 Yes [id number] 1-2 U nivers 4 mg tablet 2-15 tablets ity o f 00:00: every 8 [place] 00 hours as Medical needed for Branch nausea benzonatate 2021-05 Yes [id number] 200mg Take 1 Univers 200 mg 2-15 capsule by ity of capsule 00:00: mouth 3 [place] 00 (three) Medical times Branch daily as needed for Cough. albuterol 2021-05 Yes [id number] 2{puff} Inhale 2 Univers 90 2-15 Puffs ity of mcg/actuati 00:00: every 4 [place] on inhaler 00 (four) Medical hours as Branch needed for Wheezing or Shortness of Breath. butalbital- 2021-05 Yes [id number] 1{tbl} Take 1 Univers acetaminoph 2-15 tablet by ity of en-caff 00:00: mouth [place] 50-325-40 00 every 4 Medical mg tablet (four) Branch hours as needed (headache) . ondansetron 2021-05 Yes [id number] 1-2 U nivers 4 mg tablet 2-15 tablets ity o f 00:00: every 8 [place] 00 hours as Medical needed for Branch nausea benzonatate 2021-05 Yes [id number] 200mg Take 1 Univers 200 mg 2-15 capsule by ity of capsule 00:00: mouth 3 [place] 00 (three) Medical times Branch daily as needed for Cough. albuterol 2021-05 Yes [id number] 2{puff} Inhale 2 Univers 90 2-15 Puffs ity of mcg/actuati 00:00: every 4 [place] on inhaler 00 (four) Medical hours as Branch needed for Wheezing or Shortness of Breath. butalbital- 2021-05 Yes [id number] 1{tbl} Take 1 Univers acetaminoph 2-15 tablet by ity of en-caff 00:00: mouth [place] 50-325-40 00 every 4 Medical mg tablet (four) Branch hours as needed (headache) . ondansetron 2021-05 Yes [id number] 1-2 U nivers 4 mg tablet 2-15 tablets ity o f 00:00: every 8 [place] 00 hours as Medical needed for Branch nausea benzonatate 2021-05 Yes [id number] 200mg Take 1 Univers 200 mg 2-15 capsule by ity of capsule 00:00: mouth 3 [place] 00 (three) Medical times Branch daily as needed for Cough. albuterol 2021-05 Yes [id number] 2{puff} Inhale 2 Univers 90 2-15 Puffs ity of mcg/actuati 00:00: every 4 [place] on inhaler 00 (four) Medical hours as Branch needed for Wheezing or Shortness of Breath. butalbital- 2021-05 Yes [id number] 1{tbl} Take 1 Univers acetaminoph 2-15 tablet by ity of en-caff 00:00: mouth [place] 50-325-40 00 every 4 Medical mg tablet (four) Branch hours as needed (headache) . ondansetron 2021-05 Yes [id number] 1-2 U nivers 4 mg tablet 2-15 tablets ity o f 00:00: every 8 [place] 00 hours as Medical needed for Branch nausea benzonatate 2021-05 Yes [id number] 200mg Take 1 Univers 200 mg 2-15 capsule by ity of capsule 00:00: mouth 3 [place] 00 (three) Medical times Branch daily as needed for Cough. albuterol 2021-05 Yes [id number] 2{puff} Inhale 2 Univers 90 2-15 Puffs ity of mcg/actuati 00:00: every 4 [place] on inhaler 00 (four) Medical hours as Branch needed for Wheezing or Shortness of Breath. butalbital- 2021-05 Yes [id number] 1{tbl} Take 1 Univers acetaminoph 2-15 tablet by ity of en-caff 00:00: mouth [place] 50-325-40 00 every 4 Medical mg tablet (four) Branch hours as needed (headache) . [facility] 2021-05- Yes [id number] 2{tbl} Take 2 Univers r-ritonavir 2-15 12-21 tablets by i ty of (PAXLOVID, 00:00: 05:59 mouth in [place] EUA,) 300 00 :00 the Medical mg (150 mg morning Branch x 2)-100 mg and 2 tablet tablets in the evening. Do all this for 5 days. [facility] 2021-05- Yes [id number] 2{tbl} Take 2 Univers r-ritonavir 2-15 12-21 tablets by i ty of (PAXLOVID, 00:00: 05:59 mouth [place] EUA,) 300 00 :00 the Medical mg (150 mg morning Branch x 2)-100 mg and 2 tablet tablets in the evening. Do all this for 5 days. [facility] 2021-05- Yes [id number] 2{tbl} Take 2 Univers r-ritonavir 2-15 12-21 tablets by i ty of (PAXLOVID, 00:00: 05:59 mouth [place] EUA,) 300 00 :00 the Medical mg (150 mg morning Branch x 2)-100 mg and 2 tablet tablets in the evening. Do all this for 5 days. [facility] 2021-05- Yes [id number] 2{tbl} Take 2 Univers r-ritonavir 2-15 12-21 [...] 04/22/22 at 1645, Routine amoxicillin 2021-05 Yes [id number] 1{tbl} Take 1 Univers -clavulanat 2- [id number] tablet by i ty of e 875-125 00:00: mouth [place] mg per 00 every 12 Medical tablet (twelve) Branch hours. ondansetron 2021-05 Yes [id number] 4mg Take 1 Univers 4 mg 2- [id number] tablet by ity of disintegrat 00:00: mouth [place] ing tablet 00 every 8 Medica l (eight) Branch hours as needed for Nausea and Vomiting (N/V). amoxicillin 2021-05 Yes [id number] 1{tbl} Take 1 Univers -clavulanat 2- [id number] tablet by i ty of e 875-125 00:00: mouth [place] mg per 00 every 12 Medical tablet (twelve) Branch hours. ondansetron 2021-05 Yes [id number] 4mg Take 1 Univers 4 mg 2- [id number] tablet by ity of disintegrat 00:00: mouth [place] ing tablet 00 every 8 Medica l (eight) Branch hours as needed for Nausea and Vomiting (N/V). amoxicillin 2021-05 Yes [id number] 1{tbl} Take 1 Univers -clavulanat 2-01 [id number] tablet by i ty of e 875-125 00:00: mouth [place] mg per 00 every 12 Medical tablet (twelve) Branch hours. ondansetron 2021-05 Yes [id number] 4mg Take 1 Univers 4 mg 2- [id number] tablet by ity of disintegrat 00:00: mouth [place] ing tablet 00 every 8 Medica l (eight) Branch hours as needed for Nausea and Vomiting (N/V). amoxicillin 2021-05 Yes [id number] 1{tbl} Take 1 Univers -clavulanat 2-01 [id number] tablet by i ty of e 875-125 00:00: mouth [place] mg per 00 every 12 Medical tablet (twelve) Branch hours. ondansetron 2021-05 Yes [id number] 4mg Take 1 Univers 4 mg 2- [id number] tablet by ity of disintegrat 00:00: mouth [place] ing tablet 00 every 8 Medica l (eight) Branch hours as needed for Nausea and Vomiting (N/V). amoxicillin 2021-05 Yes [id number] 1{tbl} Take 1 Univers -clavulanat 2-01 [id number] tablet by i ty of e 875-125 00:00: mouth [place] mg per 00 every 12 Medical tablet (twelve) Branch hours. ondansetron 2021-05 Yes [id number] 4mg Take 1 Univers 4 mg 2- [id number] tablet by ity of disintegrat 00:00: mouth [place] ing tablet 00 every 8 Medica l (eight) Branch hours as needed for Nausea and Vomiting (N/V). amoxicillin 2021-05 Yes [id number] 1{tbl} Take 1 Univers -clavulanat 2-01 [id number] tablet by i ty of e 875-125 00:00: mouth [place] mg per 00 every 12 Medical tablet (twelve) Branch hours. ondansetron 2021-05 Yes [id number] 4mg Take 1 Univers 4 mg 2- [id number] tablet by ity of disintegrat 00:00: mouth [place] ing tablet 00 every 8 Medica l (eight) Branch hours as needed for Nausea and Vomiting (N/V). amoxicillin 2021-05 Yes [id number] 1{tbl} Take 1 Univers -clavulanat 2-01 [id number] tablet by i ty of e 875-125 00:00: mouth [place] mg per 00 every 12 Medical tablet (twelve) Branch hours. ondansetron 2021-05 Yes [id number] 4mg Take 1 Univers 4 mg 2-01 [id number] tablet by ity of disintegrat 00:00: mouth [place] ing tablet 00 every 8 Medica l (eight) Branch hours as needed for Nausea and Vomiting (N/V). amoxicillin 2021-05 Yes [id number] 1{tbl} Take 1 Univers -clavulanat 06-23 [id number] tablet by i ty of e 875-125 00:00: mouth [place] mg per 00 every 12 Medical tablet (twelve) Branch hours. ondansetron 2021-05 Yes [id number] 4mg Take 1 Univers 4 mg 06-23 [id number] tablet by ity of disintegrat 00:00: mouth [place] ing tablet 00 every 8 Medica l (eight) Branch hours as needed for Nausea and Vomiting (N/V). zoster 2021-05- No [id number] .5mL 0.5 mL by Univers vaccine, 0-05 03- 9104 Intramuscu ity of recombinant 00:00: 04:59 lar route [place] (SHINGRIX, 00 :00 once now Medic al PF,) for 1 Branch injection dose. And repeat in 2-6 months zoster 2021-05- No [id number] .5mL 0.5 mL by Univers vaccine, 0- 9104 Intramuscu ity of recombinant 00:00: 04:59 lar route [place] (SHINGRIX, 00 :00 once now Medic al PF,) for 1 Branch injection dose. And repeat in 2-6 months zoster 2021-05- No [id number] .5mL 0.5 mL by Univers vaccine, 0-05 [...] o f 1 mg tablet 19:28: at [place] [address] bedtime. Medical Branch traZODone 2021-0 Yes 50mg Take 50 mg Un matt 100 mg 9-27 by mouth ity of tablet 19:28: at [place] [address] bedtime. Medical Branch hydralAZINE 2021-0 Yes 25mg [...] o f 1 mg tablet 19:28: at [place] [address] bedtime. Medical Branch traZODone 2021-0 Yes 50mg Take 50 mg Un matt 100 mg 9-27 by mouth ity of tablet 19:28: at [place] [address] bedtime. Medical Branch hydralAZINE 2021-0 Yes 25mg [...] 100 mg 04 (two) Medical tablet times [place] daily. amLODIPine 2021-0 Yes 10mg Take 10 mg U nivers (NORVASC) 9-27 by mouth ity of 10 mg 19:28: daily. [place] tablet 04 Medical Branch clonazePAM 2021-0 Yes 1mg Take 1 mg Un matt (KLONOPIN) 9-27 by mouth ity o f 1 mg tablet 19:28: at [place] [address] bedtime. Medical Branch traZODone 2021-0 Yes 50mg Take 50 mg Un matt 100 mg 9-27 by mouth ity of tablet 19:28: at [place] [address] bedtime. Medical Branch hydralAZINE 2021-0 Yes 25mg [...] 100 mg 04 (two) Medical tablet times [place] daily. amLODIPine 2021-0 Yes 10mg Take 10 mg U nivers (NORVASC) 9-27 by mouth ity of 10 mg 19:28: daily. [place] tablet 04 Medical Branch clonazePAM 2021-0 Yes 1mg Take 1 mg Un matt (KLONOPIN) 9-27 by mouth ity o f 1 mg tablet 19:28: at [place] [address] bedtime. Medical Branch traZODone 2021-0 Yes 50mg Take 50 mg Un matt 100 mg 9-27 by mouth ity of tablet 19:28: at [place] [address] bedtime. Medical Branch hydralAZINE 2021-0 Yes 25mg [...] o f 1 mg tablet 19:28: at [place] [address] bedtime. Medical Branch traZODone 2021-0 Yes 50mg Take 50 mg Un matt 100 mg 9-27 by mouth ity of tablet 19:28: at [place] [address] bedtime. Medical Branch hydralAZINE 2021-0 Yes 25mg [...] 100 mg 04 (two) Medical tablet times [place] daily. amLODIPine 2021-0 Yes 10mg Take 10 mg U nivers (NORVASC) 9-27 by mouth ity of 10 mg 19:28: daily. [place] tablet 04 Medical Branch clonazePAM 2021-0 Yes 1mg Take 1 mg Un matt (KLONOPIN) 9-27 by mouth ity o f 1 mg tablet 19:28: at [place] [address] bedtime. Medical Branch traZODone 2021-0 Yes 50mg Take 50 mg Un matt 100 mg 9-27 by mouth ity of tablet 19:28: at [place] [address] bedtime. Medical Branch hydralAZINE 2021-0 Yes 25mg [...] o f 1 mg tablet 19:28: at [place] [address] bedtime. Medical Branch traZODone 2-0 Yes 50mg Take 50 mg Un matt 100 mg 9-27 by mouth ity of tablet 19:28: at [place] [address] bedtime. Medical Branch hydralAZINE 2-0 Yes 25mg [...] o f 1 mg tablet 19:28: at [place] [address] bedtime. Medical Branch traZODone 2022-0 Yes 50mg Take 50 mg Un matt 100 mg 9-27 by mouth ity of tablet 19:28: at [place] [address] bedtime. Medical Branch hydralAZINE 2-0 Yes 25mg [...] o f 1 mg tablet 19:28: at [place] [address] bedtime. Medical Branch traZODone 2-0 Yes 50mg Take 50 mg Un matt 100 mg 9-27 by mouth ity of tablet 19:28: at [place] [address] bedtime. Medical Branch hydralAZINE 2021-0 Yes 25mg [...] 100 mg 04 (two) Medical tablet times [place] daily. amLODIPine 2-0 Yes 10mg Take 10 mg U nivers (NORVASC) 9-27 by mouth ity of 10 mg 19:28: daily. [place] tablet 04 Medical Branch clonazePAM 2-0 Yes 1mg Take 1 mg Un matt (KLONOPIN) 9-27 by mouth ity o f 1 mg tablet 19:28: at [place] [address] bedtime. Medical Branch traZODone 2-0 Yes 50mg Take 50 mg Un matt 100 mg 9-27 by mouth ity of tablet 19:28: at [place] [address] bedtime. Medical Branch hydralAZINE 2021-0 Yes 25mg [...] o f 1 mg tablet 19:28: at [place] [address] bedtime. Medical Branch traZODone 2021-0 Yes 50mg Take 50 mg Un matt 100 mg 9-27 by mouth ity of tablet 19:28: at [place] [address] bedtime. Medical Branch hydralAZINE 2021-0 Yes 25mg [...] o f 1 mg tablet 19:28: at [place] [address] bedtime. Medical Branch traZODone 2-0 Yes 50mg Take 50 mg Un matt 100 mg 9-27 by mouth ity of tablet 19:28: at [place] [address] bedtime. Medical Branch hydralAZINE 2-0 Yes 25mg [...] 100 mg 04 (two) Medical tablet times [place] daily. amLODIPine 2021-0 Yes 10mg Take 10 mg U nivers (NORVASC) 9-27 by mouth ity of 10 mg 19:28: daily. [place] tablet 04 Medical Branch clonazePAM 2021-0 Yes 1mg Take 1 mg Un matt (KLONOPIN) 9-27 by mouth ity o f 1 mg tablet 19:28: at [place] [address] bedtime. Medical Branch traZODone 2021-0 Yes 50mg Take 50 mg Un matt 100 mg 9-27 by mouth ity of tablet 19:28: at [place] [address] bedtime. Medical Branch hydralAZINE 2-0 Yes 25mg [...] o f 1 mg tablet 19:28: at [place] [address] bedtime. Medical Branch traZODone 2021-0 Yes 50mg Take 50 mg Un matt 100 mg 9-27 by mouth ity of tablet 19:28: at [place] [address] bedtime. Medical Branch hydralAZINE 2021-0 Yes 25mg [...] o f 1 mg tablet 19:28: at [place] [address] bedtime. Medical Branch traZODone 2021-0 Yes 50mg Take 50 mg Un matt 100 mg 9-27 by mouth ity of tablet 19:28: at [place] [address] bedtime. Medical Branch hydralAZINE 2021-0 Yes 25mg [...] o f 1 mg tablet 19:28: at [place] [address] bedtime. Medical Branch traZODone 0 Yes 50mg Take 50 mg Un matt 100 mg 02-16 by mouth ity of tablet 19:28: at [place] [address] bedtime. Medical Branch cefpodoxime 2021- No [id number] 200mg Take 1 Univers 200 mg 02-16 tablet by ity of tablet 00:00: 04:59 mouth in [place] 00 :00 the Medical morning Branch and 1 tablet in the evening. Do all this for 3 days. cefpodoxime 0 2021- No [id number] 200mg Take 1 Univers 200 mg 02-16 tablet by ity of tablet 00:00: 04:59 mouth in [place] 00 :00 the [facility] morning [place] and 1 tablet in the evening. Do all this for 3 days. haloperidol 2021- No 2mg 2 mg, Slow Univers lactate 02-15 IV Push, ity of (HALDOL) 09:00: 09:12 ONCE, 1 [place] injection 2 00 :00 dose, On Medi porfirio mg Mon Branch 02/15/22 at 0400, Routine hydroCHLORO 0 Yes 25mg 25 mg, Univ ers thiazide 9-25 Oral, ity of (ESIDRIX) 14:00: DAILY, [place] capsule 25 00 First dose Med ical mg on [place] Branch 02/14/22 at 0900, Until Discontinu ed, Routine butalbital- 0 Yes 1{tbl} 1 tablet, Univers acetaminoph 9-24 Oral, ity of en-caff 18:46: Q6HPRN, [place] (ESGIC) 06 Starting Medical 50-325-40 on Sat Branch mg tablet 1 02/13/22 at tablet 1346, Until Discontinu ed, Routine, headaches dicyclomine 0 Yes 10mg 10 mg, Univ ers (BENTYL) 9-24 Oral, QID, ity o f capsule 10 17:00: First dose [place] mg 00 on [facility] 02/13/22 at Branch 1200, Until Discontinu ed, [...] of 2,000 mg in 17:00: 18:24 Piggyback, [place] NaCl 0.9% 00 :00 Q24H ABX, Medic [...] Tue Branch 02/11/22 at 1645, Routine nitroglycer 0 [...] of (MYCOLOG) 19:00: dose on [place] cream u Medical 02/11/22 at Branch 1400, Until Discontinu ed, Routine busPIRone 2021-0 Yes 30mg 30 mg, Univer s (BUSPAR) 02-11 Oral, BID, ity o f tablet 30 18:00: First dose [place] mg 00 on [facility] 02/11/22 at Branch 1300, Until Discontinu ed, Routine raltegravir 2021-0 Yes 400mg 400 mg, Un matt (ISENTRESS) 02-11 Oral, BID, it y of tablet 400 18:00: First dose [place] mg 00 on [facility] 02/11/22 at Branch 1300, Until Discontinu ed, JOE metoprolol 2021-0 Yes 100mg 100 mg, Uni vers tartrate 02-11 Oral, BID, ity o f (LOPRESSOR) 18:00: First dose [place] tablet 100 00 on [facility] Medical mg 02/11/22 at Branch 1300, Until Discontinu ed, Routine lisinopriL 2021-0 Yes 40mg 40 mg, Unive rs (PRINIVIL,Z 02-11 Oral, BID, it y of ESTRIL) 18:00: [place] tablet 40 00 on [facility] Medical mg 02/11/22 at Branch 1300, Until Discontinu ed, Routine emtricitabi 2021-0 Yes 1{tbl} 1 tablet, [facility] ne-tenofovi 02-11 Oral, ity of r alafen 18:00: DAILY, [place] (DESCOVY) 00 First dose Medi porfirio tablet [address] [facility] tablet 02/11/22 at 1300, Until Discontinu ed, Routine ipratropium 2021-0 Yes .5mg 0.5 mg, Uni vers (ATROVENT) 02-11 Inhalation ity of 0.02 % 17:57: , QIDPRN, [place] nebulizer 10 Starting Medica l solution on [facility] Branch 0.5 mg 02/11/22 at 1257, Until Discontinu ed, Routine, Wheezing, Shortness of Breath amLODIPine 2021-0 Yes 10mg 10 mg, Unive rs (NORVASC) 02-11 Oral, ity of tablet 10 17:30: DAILY, [place] mg 00 First dose Medical (after Branch last modificati on) on [facility] 02/11/22 at 1230, Until Discontinu ed, Routine hydrALAZINE 2021- No 25mg 25 mg, Uni vers (APRESOLINE 02-11 Oral, ity of ) tablet 25 17:30: 12:54 DAILY, [place] mg 00 :55 First dose Medical (after Branch last modificati on) on [facility] 02/11/22 at 1230, Until Discontinu ed, Routine HYDROcodone 2021- No 1{tbl} 1 tablet, Univers -acetaminop 02-11 Oral, ity of hen (NORCO 14:11: 17:37 Q6HPRN, [place] 5) 5-325 mg 03 :24 Starting Medi porfirio tablet 1 on [facility] Branch tablet 02/11/22 at 0911, Until Tue02/12/22 at 1237, Routine, Pain (scale 7-10) melatonin Yes 3mg 3 mg, Univers (MELATIN) 02-11 Oral, ity of tablet 3 mg 14:08: QHSPRN, [place] 17 Starting Medical on [facility] Branch 02/11/22 at 0908, Until Discontinu ed, Routine, Insomnia acetaminoph 2021- No 1{tbl} 1 tablet, Univers en-codeine 02-11 Oral, ity of (TYLENOL 14:06: 17:37 Q6HPRN, [place] #3) 300-30 19 :24 Starting Medic al mg tablet 1 on [facility] Branch tablet 02/11/22 at 0906, Until Tue02/12/22 at 1237, Routine, Pain (scale 4-6) sennosides- Yes 1{tbl} 1 tablet, Univers docusate 02-11 Oral, ity of sodium 14:06: QDAILYPRN, [place] (SENOKOT-S) 09 Starting Medi porfirio 8.6-50 mg on [facility] Branch per tablet 02/11/22 at 1 tablet 0906, Until Discontinu ed, Routine, Constipati on ondansetron Yes 4mg 4 mg, Slow Univers (ZOFRAN 02-11 IV Push, ity of (PF)) 14:05: Q6HPRN, [place] injection 4 59 Starting Medi porfirio mg on [facility] Branch 02/11/22 at 0905, Until Discontinu ed, Routine, Nausea and Vomiting (N/V) acetaminoph Yes 650mg 650 mg, Un matt en 02-11 Oral, ity of (TYLENOL) 14:04: Q6HPRN, [place] tablet 650 37 Starting Medic al [...] ity of ) 25 mg 09:10: daily. [place] tablet 54 Medical Branch amLODIPine 0 Yes 10mg Take 10 mg U nivers (NORVASC) 02-11 by mouth ity of 10 mg 09:10: daily. [place] tablet 54 Medical Branch piperacilli 0 2021- No 3.375g 3.375 [...] of therapy: 72 hours iopamidol 2021- No [id number] 60mL 60 mL, Univers (ISOVUE 02-11 Intravenou [...] 00 :00 dose, On Medic al mg [facility] Branch 02/11/22 at 0015, JOE emtricitabi Yes [id number] Take one Univers ne-tenofovi 9-12 po daily ity of r alafen 00:00: [place] (DESCOVY) Medical tablet Branch emtricitabi Yes [id number] Take one Univers ne-tenofovi 9-12 po daily ity of r alafen 00:00: [place] (DESCOVY) Medical tablet Branch emtricitabi Yes [id number] Take one Univers ne-tenofovi 9-12 po daily ity of r alafen 00:00: [place] (DESCOVY) Medical tablet Branch emtricitabi Yes [id number] Take one Univers ne-tenofovi 9-12 po daily ity of r alafen 00:00: [place] (DESCOVY) Medical tablet Branch emtricitabi Yes [id number] Take one Univers ne-tenofovi 9-12 po daily ity of r alafen 00:00: [place] (DESCOVY) 00 Medical tablet Branch emtricita Yes [id number] Take one Univers ne-tenofovi 9-12 po daily ity of r alafen 00:00: [place] (DESCOVY) 00 Medical tablet Branch emtricita Yes [id number] Take one Univers ne-tenofovi 9-12 po daily ity of r alafen 00:00: [place] (DESCOVY) 00 Medical tablet Branch emtricita Yes [id number] Take one Univers ne-tenofovi 9-12 po daily ity of r alafen 00:00: [place] (DESCOVY) 00 Medical tablet Branch emtricita Yes [id number] Take one Univers ne-tenofovi 9-12 po daily ity of r alafen 00:00: [place] (DESCOVY) 00 Medical tablet Branch [facility] [id number] Take one Univers ne-tenofovi 9-12 po daily ity of r alafen 00:00: [place] (DESCOVY) 00 Medical tablet Branch [facility] Yes [id number] Take one Univers ne-tenofovi 9-12 po daily ity of r alafen 00:00: [place] (DESCOVY) 00 Medical tablet Branch emtricita Yes [id number] Take one Univers ne-tenofovi 9-12 po daily ity of r alafen 00:00: [place] (DESCOVY) 00 Medical tablet Branch emtricita Yes [id number] Take one Univers ne-tenofovi 9-12 po daily ity of r alafen 00:00: [place] (DESCOVY) 00 Medical tablet Branch emtricita Yes [id number] Take one Univers ne-tenofovi 9-12 po daily ity of r alafen 00:00: [place] (DESCOVY) 00 Medical tablet Branch emtricita Yes [id number] Take one Univers ne-tenofovi 9-12 po daily ity of r alafen 00:00: [place] (DESCOVY) 00 Medical tablet Branch emtricita Yes [id number] Take one Univers ne-tenofovi 9-12 po daily ity of r alafen 00:00: [place] (DESCOVY) 00 Medical tablet Branch emtricitabi 2021-0 Yes [id number] Take one Univers ne-tenofovi 9-12 po daily ity of r alafen 00:00: [place] (DESCOVY) 00 Medical tablet Branch naproxen 2021-0 Yes [id number] 500mg Take 1 U nivers (NAPROSYN) 7-24 tablet by ity of 500 mg 00:00: mouth in [place] tablet 00 the Medical morning Branch and 1 tablet in the evening. Take with meals. methocarbam 2021-0 Yes [id number] 500mg Take 1 Univers oL 500 mg 7-24 tablet by ity o f tablet 00:00: mouth 4 [place] ([facility]) Medical times [place] daily. naproxen 2021-0 Yes [id number] 500mg Take 1 U nivers (NAPROSYN) 7-24 tablet by ity of 500 mg 00:00: mouth in [place] tablet 00 the Medical morning Branch and 1 tablet in the evening. Take with meals. methocarbam 2021-0 Yes [id number] 500mg Take 1 Univers oL 500 mg 7-24 tablet by ity o f tablet 00:00: mouth 4 [place] ([facility]) Medical times Branch daily. naproxen 2021-0 Yes [id number] 500mg Take 1 U nivers (NAPROSYN) 7-24 tablet by ity of 500 mg 00:00: mouth in [place] tablet 00 the Medical morning Branch and 1 tablet in the evening. Take with meals. methocarbam 2021-0 Yes [id number] 500mg Take 1 Univers oL 500 mg 7-24 tablet by ity o f tablet 00:00: mouth 4 [place] ([facility]) Medical times Branch daily. naproxen 2-0 2022- No [id number] 500mg Take 1 Univers (NAPROSYN) 7-24 10-14 tablet by ity of 500 mg 00:00: 00:00 mouth in [place] tablet 00 :00 the Medical morning Branch and 1 tablet in the evening. Take with meals. methocarbam 2-0 2022- No [id number] 500mg Take 1 Univers oL 500 mg 7-24 10-14 tablet by ity of tablet 00:00: 00:00 mouth 4 [place] 00 :00 (four) Medical times Branch daily. naproxen No [id number] 500mg Take 1 Univers (NAPROSYN) 12-13 tablet by ity of 500 mg 00:00: 00:00 mouth in [place] tablet 00 :00 the Medical morning Branch and 1 tablet in the evening. Take with meals. methocarbam 2021- No [id number] 500mg Take 1 Univers oL 500 mg 12-13 tablet by ity of tablet 00:00: 00:00 mouth 4 [place] 00 :00 (four) Medical times Branch daily. esomeprazol 2021- No 40mg Take 40 mg Univers e (NEXIUM) 11-20 by mouth 2 it y of 40 mg 09:12: 00:00 (two) [place] capsule 03 :00 times Medical daily. Branch amiodarone 2021- No 100mg Take 100 U nivers 100 mg 11-20 mg by ity of tablet 09:11: 00:00 mouth [place] 57 :00 daily. Medical Branch apixaban No 5mg Take 5 mg Uni vers (ELIQUIS) 5 11-20 by mouth 2 i ty of mg tablet 09:11: 00:00 (two) [place] 35 :00 times Medical daily. Branch traZODONE Take by [facility] ers (DESYREL) 11-20 mouth at ity o f 10 mg/mL 09:10: 00:00 bedtime. [place] oral 28 :00 Medical suspension Branch hydralAZINE Yes 25mg Take 25 mg Univers (APRESOLINE 11-20 by mouth ity of ) 25 mg 08:47: daily. [place] tablet 47 Medical Branch cephALEXin 2021- No [id number] 500mg Take 1 Univers (KEFLEX) 10-24 capsule by ity of 500 mg 00:00: 00:00 mouth 4 [place] capsule 00 :00 (four) Medical times Branch daily. acetaminoph 2021- No 4647 1{tbl} Take 1 U nivers en-codeine 10-24 tablet by ity of (TYLENOL-CO 00:00: 00:00 mouth [place] DEINE #3) 00 :00 every 4 Medical 300-30 mg (four) Branch tablet hours as needed for Pain (scale 7-10). Indication s: acute pain buPROPion 2021-0 Yes [id number] 150mg Take 1 U nivers XL 4-12 tablet by ity of (WELLBUTRIN 00:00: mouth [place] XL) 150 mg 00 daily. Medical 24 hr Branch tablet busPIRone 2021-0 Yes [id number] 30mg Take 1 Un matt 30 mg 4-12 tablet by ity of tablet 00:00: mouth 2 [place] 00 (two) Medical times Branch daily. SERTraline 2021-0 Yes [id number] 200mg Take 2 Univers 100 mg 4-12 tablets by ity of tablet 00:00: mouth [place] 00 daily. Medical Branch buPROPion 2021-0 Yes [id number] 150mg Take 1 U nivers XL 4-12 tablet by ity of (WELLBUTRIN 00:00: mouth [place] XL) 150 mg 00 daily. Medical 24 hr Branch tablet busPIRone 2021-0 Yes [id number] 30mg Take 1 Un matt 30 mg 4-12 tablet by ity of tablet 00:00: mouth 2 [place] 00 (two) Medical times Branch daily. SERTraline 2021-0 Yes [id number] 200mg Take 2 Univers 100 mg 4-12 tablets by ity of tablet 00:00: mouth [place] 00 daily. Medical Branch buPROPion 2021-0 Yes [id number] 150mg Take 1 U nivers XL 4-12 tablet by ity of (WELLBUTRIN 00:00: mouth [place] XL) 150 mg 00 daily. Medical 24 hr Branch tablet busPIRone 2021-0 Yes [id number] 30mg Take 1 Un matt 30 mg 4-12 tablet by ity of tablet 00:00: mouth 2 [place] 00 (two) Medical times Branch daily. SERTraline 2021-0 Yes [id number] 200mg Take 2 Univers 100 mg 4-12 tablets by ity of tablet 00:00: mouth [place] 00 daily. Medical Branch buPROPion 2021-0 Yes [id number] 150mg Take 1 U nivers XL 4-12 tablet by ity of (WELLBUTRIN 00:00: mouth [place] XL) 150 mg 00 daily. Medical 24 hr Branch tablet busPIRone 2021-0 Yes [id number] 30mg Take 1 Un matt 30 mg 4-12 tablet by ity of tablet 00:00: mouth 2 00 (two) Medical times Branch daily. SERTraline 2021-0 Yes [id number] 200mg Take 2 Univers 100 mg 4-12 tablets by ity of tablet 00:00: mouth [place] 00 daily. Medical Branch buPROPion 2021-0 Yes [id number] 150mg Take 1 U nivers XL 4-12 tablet by ity of (WELLBUTRIN 00:00: mouth [place] XL) 150 mg 00 daily. Medical 24 hr Branch tablet busPIRone 2021-0 Yes [id number] 30mg Take 1 Un matt 30 mg 4-12 tablet by ity of tablet 00:00: mouth 2 (two) Medical times Branch daily. SERTraline 0 Yes [id number] 200mg Take 2 Univers 100 mg 4-12 tablets by ity of tablet 00:00: mouth [place] 00 daily. Medical Branch buPROPion 0 Yes [id number] 150mg Take 1 U nivers XL 4-12 tablet by ity of (WELLBUTRIN 00:00: mouth [place] XL) 150 mg 00 daily. Medical 24 hr Branch tablet busPIRone 2021-0 Yes [id number] 30mg Take 1 Un matt 30 mg 4-12 tablet by ity of tablet 00:00: mouth 2 [place] 00 (two) Medical times Branch daily. SERTraline 2021-0 Yes [id number] 200mg Take 2 Univers 100 mg 4-12 tablets by ity of tablet 00:00: mouth [place] 00 daily. Medical Branch buPROPion 2021-0 Yes [id number] 150mg Take 1 U nivers XL 4-12 tablet by ity of (WELLBUTRIN 00:00: mouth [place] XL) 150 mg 00 daily. Medical 24 hr Branch tablet busPIRone 2021-0 Yes [id number] 30mg Take 1 Un matt 30 mg 4-12 tablet by ity of tablet 00:00: mouth 2 [place] 00 (two) Medical times Branch daily. SERTraline 2021-0 Yes [id number] 200mg Take 2 Univers 100 mg 4-12 tablets by ity of tablet 00:00: mouth [place] 00 daily. Medical Branch buPROPion 2021-0 Yes [id number] 150mg Take 1 U nivers XL 4-12 tablet by ity of (WELLBUTRIN 00:00: mouth [place] XL) 150 mg 00 daily. Medical 24 hr Branch tablet busPIRone 2021-0 Yes [id number] 30mg Take 1 Un matt 30 mg 4-12 tablet by ity of tablet 00:00: mouth 2 [place] 00 (two) Medical times Branch daily. SERTraline 2021-0 Yes [id number] 200mg Take 2 Univers 100 mg 4-12 tablets by ity of tablet 00:00: mouth [place] 00 daily. Medical Branch buPROPion 0 Yes [id number] 150mg Take 1 U nivers XL 4-12 tablet by ity of (WELLBUTRIN 00:00: mouth [place] XL) 150 mg 00 daily. Medical 24 hr Branch tablet busPIRone 0 Yes [id number] 30mg Take 1 Un matt 30 mg 4-12 tablet by ity of tablet 00:00: mouth 2 00 (two) Medical times Branch daily. SERTraline 0 Yes [id number] 200mg Take 2 Univers 100 mg 4-12 tablets by ity of tablet 00:00: mouth [place] 00 daily. Medical Branch buPROPion 0 Yes [id number] 150mg Take 1 U nivers XL 4-12 tablet by ity of (WELLBUTRIN 00:00: mouth [place] XL) 150 mg 00 daily. Medical 24 hr Branch tablet busPIRone 0 Yes [id number] 30mg Take 1 Un matt 30 mg 4-12 tablet by ity of tablet 00:00: mouth 2 00 (two) Medical times Branch daily. SERTraline 2021-0 Yes [id number] 200mg Take 2 Univers 100 mg 4-12 tablets by ity of tablet 00:00: mouth [place] 00 daily. Medical Branch buPROPion 2021-0 Yes [id number] 150mg Take 1 U nivers XL 4-12 tablet by ity of (WELLBUTRIN 00:00: mouth [place] XL) 150 mg 00 daily. Medical 24 hr Branch tablet busPIRone 2021-0 Yes [id number] 30mg Take 1 Un matt 30 mg 4-12 tablet by ity of tablet 00:00: mouth 2 00 (two) Medical times Branch daily. SERTraline 2022-0 Yes [id number] 200mg Take 2 Univers 100 mg 4-12 tablets by ity of tablet 00:00: mouth [place] 00 daily. Medical Branch buPROPion 0 Yes [id number] 150mg Take 1 U nivers XL 4-12 tablet by ity of (WELLBUTRIN 00:00: mouth [place] XL) 150 mg 00 daily. Medical 24 hr Branch tablet busPIRone 0 Yes [id number] 30mg Take 1 Un matt 30 mg 4-12 tablet by ity of tablet 00:00: mouth 2 [place] 00 (two) Medical times Branch daily. SERTraline Yes [id number] 200mg Take 2 Univers 100 mg 4-12 tablets by ity of tablet 00:00: mouth [place] 00 daily. Medical Branch buPROPion Yes [id number] 150mg Take 1 U nivers XL 4-12 tablet by ity of (WELLBUTRIN 00:00: mouth [place] XL) 150 mg 00 daily. Medical 24 hr Branch tablet busPIRone 0 Yes [id number] 30mg Take 1 Un matt 30 mg 4-12 tablet by ity of tablet 00:00: mouth 2 [place] 00 (two) Medical times Branch daily. SERTraline Yes [id number] 200mg Take 2 Univers 100 mg 4-12 tablets by ity of tablet 00:00: mouth [place] 00 daily. Medical Branch buPROPion 0 Yes [id number] 150mg Take 1 U nivers XL 4-12 tablet by ity of (WELLBUTRIN 00:00: mouth [place] XL) 150 mg 00 daily. Medical 24 hr Branch tablet busPIRone 0 Yes [id number] 30mg Take 1 Un matt 30 mg 4-12 tablet by ity of tablet 00:00: mouth 2 [place] 00 (two) Medical times Branch daily. SERTraline 0 Yes [id number] 200mg Take 2 Univers 100 mg 4-12 tablets by ity of tablet 00:00: mouth [place] 00 daily. Medical Branch buPROPion 0 Yes [id number] 150mg Take 1 U nivers XL 4-12 tablet by ity of (WELLBUTRIN 00:00: mouth [place] XL) 150 mg 00 daily. Medical 24 hr Branch tablet busPIRone 0 Yes [id number] 30mg Take 1 Un matt 30 mg 4-12 tablet by ity of tablet 00:00: mouth 2 [place] 00 (two) Medical times Branch daily. SERTraline 2021-0 Yes [id number] 200mg Take 2 Univers 100 mg 4-12 tablets by ity of tablet 00:00: mouth [place] 00 daily. Medical Branch buPROPion 2021-0 Yes [id number] 150mg Take 1 U nivers XL 4-12 tablet by ity of (WELLBUTRIN 00:00: mouth [place] XL) 150 mg 00 daily. Medical 24 hr Branch tablet busPIRone 2021-0 Yes [id number] 30mg Take 1 Un matt 30 mg 4-12 tablet by ity of tablet 00:00: mouth 2 [place] 00 (two) Medical times Branch daily. SERTraline 2021-0 Yes [id number] 200mg Take 2 Univers 100 mg 4-12 tablets by ity of tablet 00:00: mouth [place] 00 daily. Medical Branch buPROPion 0 Yes [id number] 150mg Take 1 U nivers XL 4-12 tablet by ity of (WELLBUTRIN 00:00: mouth [place] XL) 150 mg 00 daily. Medical 24 hr Branch tablet busPIRone 2021-0 Yes [id number] 30mg Take 1 Un matt 30 mg 4-12 tablet by ity of tablet 00:00: mouth 2 [place] 00 (two) Medical times Branch daily. SERTraline 0 Yes [id number] 200mg Take 2 Univers 100 mg 4-12 tablets by ity of tablet 00:00: mouth [place] 00 daily. Medical Branch buPROPion 0 Yes [id number] 150mg Take 1 U nivers XL 4-12 tablet by ity of (WELLBUTRIN 00:00: mouth [place] XL) 150 mg 00 daily. Medical 24 hr Branch tablet busPIRone 2021-0 Yes [id number] 30mg Take 1 Un matt 30 mg 4-12 tablet by ity of tablet 00:00: mouth 2 [place] 00 (two) Medical times Branch daily. SERTraline 2021-0 Yes [id number] 200mg Take 2 Univers 100 mg 4-12 tablets by ity of tablet 00:00: mouth [place] 00 daily. Medical Branch raltegravir 2021-0 Yes [id number] 400mg Take 1 Univers (ISENTRESS) 3-28 tablet by ity of 400 mg 00:00: mouth 2 [place] tablet 00 (two) Medical times Branch daily. raltegravir 2022-0 Yes [id number] 400mg Take 1 Univers (ISENTRESS) 3-28 tablet by ity of 400 mg 00:00: mouth 2 [place] tablet 00 (two) Medical times Branch daily. raltegravir 2022-0 Yes [id number] 400mg Take 1 Univers (ISENTRESS) 3-28 tablet by ity of 400 mg 00:00: mouth 2 [place] tablet 00 (two) Medical times Branch daily. raltegravir 2022-0 Yes [id number] 400mg Take 1 Univers (ISENTRESS) 3-28 tablet by ity of 400 mg 00:00: mouth 2 [place] tablet 00 (two) Medical times Branch daily. raltegravir 2022-0 Yes [id number] 400mg Take 1 Univers (ISENTRESS) 3-28 tablet by ity of 400 mg 00:00: mouth 2 [place] tablet 00 (two) Medical times Branch daily. raltegravir 2022-0 Yes [id number] 400mg Take 1 Univers (ISENTRESS) 3-28 tablet by ity of 400 mg 00:00: mouth 2 [place] tablet 00 (two) Medical times Branch daily. raltegravir 2022-0 Yes [id number] 400mg Take 1 Univers (ISENTRESS) 3-28 tablet by ity of 400 mg 00:00: mouth 2 [place] tablet 00 (two) Medical times Branch daily. raltegravir 2022-0 Yes [id number] 400mg Take 1 Univers (ISENTRESS) 3-28 tablet by ity of 400 mg 00:00: mouth 2 [place] tablet 00 (two) Medical times Branch daily. raltegravir 2022-0 Yes [id number] 400mg Take 1 Univers (ISENTRESS) 3-28 tablet by ity of 400 mg 00:00: mouth 2 [place] tablet 00 (two) Medical times Branch daily. raltegravir 2022-0 Yes [id number] 400mg Take 1 Univers (ISENTRESS) 3-28 tablet by ity of 400 mg 00:00: mouth 2 [place] tablet 00 (two) Medical times Branch daily. raltegravir 2022-0 Yes [id number] 400mg Take 1 Univers (ISENTRESS) 3-28 tablet by ity of 400 mg 00:00: mouth 2 [place] tablet 00 (two) Medical times Branch daily. raltegravir 2021-0 Yes [id number] 400mg Take 1 Univers (ISENTRESS) 3-28 tablet by ity of 400 mg 00:00: mouth 2 [place] tablet 00 (two) Medical times Branch daily. raltegravir 2021-0 Yes [id number] 400mg Take 1 Univers (ISENTRESS) 3-28 tablet by ity of 400 mg 00:00: mouth 2 [place] tablet 00 (two) Medical times Branch daily. raltegravir 2021-0 Yes [id number] 400mg Take 1 Univers (ISENTRESS) 3-28 tablet by ity of 400 mg 00:00: mouth 2 [place] tablet 00 (two) Medical times Branch daily. raltegravir 2021-0 Yes [id number] 400mg Take 1 Univers (ISENTRESS) 3-28 tablet by ity of 400 mg 00:00: mouth 2 [place] tablet 00 (two) Medical times Branch daily. raltegravir 2021-0 Yes [id number] 400mg Take 1 Univers (ISENTRESS) 3-28 tablet by ity of 400 mg 00:00: mouth 2 [place] tablet 00 (two) Medical times Branch daily. raltegravir 2021-0 Yes [id number] 400mg Take 1 Univers (ISENTRESS) 3-28 tablet by ity of 400 mg 00:00: mouth 2 [place] tablet 00 (two) Medical times Branch daily. raltegravir 2021-0 Yes [id number] 400mg Take 1 Univers (ISENTRESS) 3-28 tablet by ity of 400 mg 00:00: mouth 2 [place] tablet 00 (two) Medical times Branch daily. LORazepam 1 2021-0 2021- No [id number] 1mg Take 1 Univers mg tablet 3-21 [...] times a tablet day. emtricitabi 2021- No [id number] Take one Univers raman -20 09-12 po daily ity of r alafen 00:00: 00:00 [place] (DESCOVY) 00 :00 Medical tablet Branch metoprolol Yes [id number] Take 1 [place] tartrate 7-26 tablet Health (Lopressor) 00:00: (100 mg 100 MG 00 total) by tablet mouth 2 (two) times a day AND 0.5 tablets (50 mg total) every night. metoprolol Yes [id number] Take 1 [place] tartrate 7-26 tablet Health (Lopressor) 00:00: (100 mg 100 MG 00 total) by tablet mouth 2 (two) times a day AND 0.5 tablets (50 mg total) every night. raltegravir Yes 400mg Q.5D Take 400 U [facility] (Isentress) 7-23 mg by Health 400 MG 08:03: mouth 2 tablet 05 (two) times a day. metoprolol Yes 100mg Q.5D [...] area in groin) hydrALAZINE 2020-0 Yes 50mg Q.[id number] Take 50 mg [facility] (APRESOLINE 7-[id number] mouth [address] ) 50 MG [...] (affected area in groin) hydrALAZINE Yes 50mg Q.[id number] Take 50 mg [facility] (APRESOLINE 7-19 [id number] mouth [facility] ) 50 MG [...] area in groin) hydrALAZINE 0 Yes 50mg Q.[id number] Take 50 mg [facility] (APRESOLINE 7-19 [id number] mouth [facility] ) 50 MG [...] area in groin) hydrALAZINE 0 Yes 50mg Q.[id number] Take 50 mg [facility] (APRESOLINE 7-[id number] mouth 3 [address] ) 50 MG [...] (affected area in groin) hydrALAZINE Yes 50mg Q.[id number] Take 50 mg [facility] (APRESOLINE 7-[id number] mouth [facility] [address] ) 50 MG [...] (affected area in groin) hydrALAZINE Yes 50mg Q.[id number] Take 50 mg [facility] (APRESOLINE 7-19 [id number] mouth [facility] ) 50 MG [...] area in groin) hydrALAZINE 0 Yes 50mg Q.[id number] Take 50 mg [facility] (APRESOLINE 7-[id number] mouth [facility] [address] ) 50 MG [...] (affected area in groin) hydrALAZINE Yes 50mg Q.[id number] Take 50 mg [facility] (APRESOLINE 7-[id number] mouth [address] ) 50 MG [...] (affected area in groin) hydrALAZINE Yes 50mg Q.[id number] Take 50 mg [facility] (APRESOLINE 7-[id number] mouth [facility] ) 50 MG [...] area in groin) hydrALAZINE 0 Yes 50mg Q.[id number] Take 50 mg [facility] (APRESOLINE 7-[id number] mouth [address] ) 50 MG [...] area in groin) hydrALAZINE 0 Yes 50mg Q.[id number] Take 50 mg [facility] (APRESOLINE 7-19 [id number] mouth 3 [address] ) 50 MG [...] (affected area in groin) hydrALAZINE Yes 50mg Q.[id number] Take 50 mg [facility] (APRESOLINE 7-[id number] mouth [address] ) 50 MG [...] area in groin) hydrALAZINE 0 Yes 50mg Q.[id number] Take 50 mg [facility] (APRESOLINE 7-[id number] mouth 3 [address] ) 50 MG [...] area in groin) hydrALAZINE 2020-0 Yes 50mg Q.[id number] Take 50 mg [facility] (APRESOLINE 7-19 [id number] by mouth 3 [facility] ) 50 MG [...] (affected area in groin) hydrALAZINE Yes 50mg Q.[id number] Take 50 mg [facility] (APRESOLINE 7-19 [id number] by mouth 3 [facility] ) 50 MG [...] area in groin) hydrALAZINE 0 Yes 50mg Q.[id number] Take 50 mg [facility] (APRESOLINE 7-[id number] mouth [address] ) 50 MG [...] area in groin) hydrALAZINE 0 Yes 50mg Q.[id number] Take 50 mg [facility] (APRESOLINE 7-[id number] mouth [address] ) 50 MG [...] area in groin) hydrALAZINE 0 Yes 50mg Q.[id number] Take 50 mg [facility] (APRESOLINE 7-19 [id number] mouth 3 [address] ) 50 MG [...] (affected area in groin) hydrALAZINE Yes 50mg Q.[id number] Take 50 mg [facility] (APRESOLINE 7-[id number] mouth [address] ) 50 MG [...] area in groin) hydrALAZINE 0 Yes 50mg Q.[id number] Take 50 mg [facility] (APRESOLINE 7-[id number] mouth [address] ) 50 MG [...] (affected area in groin) hydrALAZINE Yes 50mg Q.[id number] Take 50 mg [facility] (APRESOLINE 7-[id number] mouth 3 [address] ) 50 MG [...] (affected area in groin) hydrALAZINE Yes 50mg Q.[id number] Take 50 mg [facility] (APRESOLINE 7-[id number] mouth 3 [address] ) 50 MG [...] area in groin) hydrALAZINE 0 Yes 50mg Q.[id number] Take 50 mg [facility] (APRESOLINE 7-[id number] mouth [address] ) 50 MG [...] area in groin) hydrALAZINE 0 Yes 50mg Q.[id number] Take 50 mg [facility] (APRESOLINE 7-[id number] mouth [address] ) 50 MG [...] (affected area in groin) hydrALAZINE Yes 50mg Q.[id number] Take 50 mg [facility] (APRESOLINE 7-19 [id number] by mouth 3 st ) 50 MG [...] area in groin) hydrALAZINE 0 Yes 50mg Q.[id number] Take 50 mg [facility] (APRESOLINE 7-19 [id number] by mouth 3 st ) 50 MG [...] area in groin) hydrALAZINE 0 Yes 50mg Q.[id number] Take 50 mg [facility] (APRESOLINE 7-19 [id number] by mouth 3 st ) 50 MG [...] (affected area in groin) hydrALAZINE Yes 50mg Q.[id number] Take 50 mg [facility] (APRESOLINE 7-19 [id number] by mouth 3 st ) 50 MG [...] (affected area in groin) hydrALAZINE Yes 50mg Q.[id number] Take 50 mg [facility] (APRESOLINE 7-19 [id number] by mouth 3 st ) 50 MG [...] area in groin) hydrALAZINE 0 Yes 50mg Q.[id number] Take 50 mg [facility] (APRESOLINE 7-19 [id number] by mouth 3 st ) 50 MG [...] mg tablet 25 times a l day. nystatin-tr 2020-0 Yes [id number] Apply to [facility] iamcinolone 7-06 area(s) 3 ity of cream 00:00: (three) [place] 00 times Medical daily. Branch nystatin-tr 202-0 Yes [id number] Apply to [facility] iainolone 7-06 area(s) 3 ity of cream 00:00: (three) [place] 00 times Medical daily. Branch nystatin-tr 202-0 Yes [id number] Apply to [facility] iainolone 7-06 area(s) 3 ity of cream 00:00: (three) [place] 00 times Medical daily. Branch nystatin-tr 2021-0 Yes [id number] [facility] to [facility] iamcinolone 7-06 area(s) 3 ity of cream 00:00: (three) [place] 00 times Medical daily. Branch nystatin-tr 2021-0 Yes [id number] Apply to [facility] iamcinolone 7-06 area(s) 3 ity of cream 00:00: (three) [place] 00 times Medical daily. Branch nystatin-tr 2021-0 Yes [id number] Apply to [facility] iamcinolone 7-06 area(s) 3 ity of cream 00:00: (three) [place] 00 times Medical daily. Branch nystatin-tr 2021-0 Yes [id number] Apply to [facility] iamcinolone 7-06 area(s) 3 ity of cream 00:00: (three) [place] 00 times Medical daily. Branch nystatin-tr 2021-0 Yes [id number] Apply to [facility] iamcinolone 7-06 area(s) 3 ity of cream 00:00: (three) [place] 00 times Medical daily. Branch nystatin-tr 2021-0 Yes [id number] Apply to [facility] iamcinolone 7-06 area(s) 3 ity of cream 00:00: (three) [place] 00 times Medical daily. Branch nystatin-tr 2021-0 Yes [id number] Apply to [facility] iamcinolone 7-06 area(s) 3 ity of cream 00:00: (three) [place] 00 times Medical daily. Branch nystatin-tr 2021-0 Yes [id number] Apply to [facility] iamcinolone 7-06 area(s) 3 ity of cream 00:00: (three) [place] 00 times Medical daily. Branch nystatin-tr 2021-0 Yes [id number] Apply to [facility] iamcinolone 7-06 area(s) 3 ity of cream 00:00: (three) [place] 00 times Medical daily. Branch nystatin-tr 2021-0 Yes [id number] Apply to [facility] iamcinolone 7-06 area(s) 3 ity of cream 00:00: (three) [place] 00 times Medical daily. Branch nystatin-tr 2021-0 Yes [id number] Apply to [facility] iamcinolone 7-06 area(s) 3 ity of cream 00:00: (three) [place] 00 times Medical daily. Branch nystatin-tr 2021-0 Yes [id number] Apply to [facility] iamcinolone 7-06 area(s) 3 ity of cream 00:00: (three) [place] 00 times Medical daily. Branch nystatin-tr 2020-0 Yes [id number] Apply to [facility] iamcinolone 7-06 area(s) 3 ity of cream 00:00: (three) [place] 00 times Medical daily. Branch nystatin-tr 2020-0 Yes [id number] Apply to [facility] iainolone 7-06 area(s) 3 ity of cream 00:00: (three) [place] 00 times Medical daily. Branch nystatin-tr 2020-0 Yes [id number] Apply to [facility] iainolone 7-06 area(s) 3 ity of cream 00:00: (three) [place] 00 times Medical daily. Branch budesonide- 0 2021- No 1{puff} QD Inhale 1 [facility] formoteroL 6-25 06-[address] (SYMBICORT) 14:37: 00:00 morning. H ospita 160-4.5 02 :00 l mcg/actuati on inhaler hydrALAZINE 0 Yes [id number] 50mg Q.[id number] Take 1 [place] (Apresoline 6-11 [id number] tablet (50 Health ) 50 MG 00:00: 3D mg total) tablet 00 by mouth 3 (three) times a day. hydrALAZINE 0 Yes [id number] 50mg Q.[id number] Take 1 [place] (Apresoline 6-11 [id number] tablet (50 Health ) 50 MG 00:00: [...] % 00:00: ointment 00 nystatin 2020- No [id number] Q.25D Take 5 mL [facility] (MYCOSTATIN 10-06 [...] ia 4-10 (Same as: l 14:00: Norvasc) [place] 00 emtricitabi No Notes: Caesar lisa ne 200 MG / 4-10 (Same as: l tenofovir 14:00: Descovy) Herm ariel alafenamide 00 Non-formul 25 MG Oral nancy Tablet [Descovy] pantoprazol No Notes: Caesar lisa e 4-10 Tablet l 14:00: should not be chewed or crushed. (Same as: Protonix) Amiodarone No Notes: Memor ia 4-10 (Same as: l 14:00: Cordarone) [place] 00 Amlodipine No Notes: Memor ia 4-10 (Same as: l 14:00: Norvasc) [place] 00 emtricitabi No Notes: Caesar lisa ne 200 MG / 4-10 (Same as: l tenofovir 14:00: Descovy) Herm ariel alafenamide 00 Non-formul 25 MG Oral nancy Tablet [Descovy] Sertraline No Notes: Memor ia 4-10 (Same as: l 14:00: Zoloft) [place] 00 Sertraline No Notes: Memor ia 4-10 (Same as: l 14:00: Zoloft) Marty pantoprazol No Notes: Caesar lisa e 4-10 Tablet l 14:00: should not [place] 00 be chewed or crushed. (Same as: Protonix) Amiodarone No Notes: Memor ia 4-10 (Same as: l 14:00: Cordarone) [place] 00 Amlodipine No Notes: Memor ia 4-10 [...] e 4-10 Tablet l 14:00: should not [place] 00 be chewed or crushed. (Same as: Protonix) Amiodarone No Notes: Memor ia 4-10 (Same as: l 14:00: Cordarone) Marty 00 Amlodipine No Notes: Memor ia 4-10 (Same as: l 14:00: Norvasc) [place] 00 emtricitabi No Notes: Caesar lisa ne 200 MG / 4-10 (Same as: l tenofovir 14:00: Descovy) Herm ariel alafenamide 00 Non-formul 25 MG Oral nancy Tablet [Descovy] Sertraline No Notes: Memor ia 4-10 (Same as: l 14:00: Zoloft) Marty 00 pantoprazol No Notes: Caesar lisa e 4-10 Tablet l 14:00: should not [place] 00 be chewed or crushed. (Same as: Protonix) Amiodarone No Notes: Memor ia 4-10 (Same as: l 14:00: Cordarone) [place] 00 Amlodipine No Notes: Memor ia 4-10 (Same as: l 14:00: Norvasc) [place] 00 emtricitabi No Notes: Caesar lisa ne 200 MG / 4-10 (Same as: l tenofovir 14:00: Descovy) Herm ariel alafenamide 00 Non-formul 25 MG Oral nancy Tablet [Descovy] Sertraline No Notes: Memor ia 4-10 (Same as: l 14:00: Zoloft) [place] 00 pantoprazol No Notes: Caesar lisa e 4-10 Tablet l 14:00: should not [place] 00 be chewed or crushed. (Same as: Protonix) Amiodarone No Notes: Memor ia 4-10 (Same as: l 14:00: Cordarone) [place] 00 Amlodipine No Notes: Memor ia 4-10 [...] ia 4-10 (Same as: l 14:00: Cordarone) [place] 00 Amlodipine No Notes: Memor ia 4-10 (Same as: l 14:00: Norvasc) Marty emtricitabi No Notes: Caesar lisa ne 200 MG / 4-10 (Same as: l tenofovir 14:00: Descovy) Herm ariel alafenamide 00 Non-formul 25 MG Oral nancy Tablet [Descovy] Sertraline No Notes: Memor ia 4-10 (Same as: l 14:00: Zoloft) [place] 00 pantoprazol No Notes: Caesar lisa e 4-10 Tablet l 14:00: should not Marty 00 be chewed or crushed. (Same as: Protonix) Amiodarone No Notes: Memor ia 4-10 (Same as: l 14:00: Cordarone) [place] 00 Sucralfate No Notes: May M emoria 4-10 interfere l 02:00: w/enteral [place] 00 feeds - Take 1 hr before [...] M emoria 4-10 interfere l 02:00: w/enteral [place] 00 feeds - Take 1 hr before [...] Memoria 4-10 Same as: l 02:00: Eliquis [place] 00 Hydralazine No Notes: Caesar lisa Hydrochlori [...] 0.9% 4-10 (Same as: l 02:00: BD [place] 00 Posiflush) Eliquis No Notes: Memoria 4-10 Same as: l 02:00: Eliquis [place] Hydralazine No Notes: Caesar lisa Hydrochlori 4-10 [...] 0.9% 4-10 (Same as: l 02:00: BD [place] 00 Posiflush) Eliquis No Notes: Memoria 4-10 [...] 0.9% 4-10 (Same as: l 02:00: BD [place] 00 Posiflush) Eliquis No Notes: Memoria 4-10 Same as: l 02:00: Eliquis [place] 00 Hydralazine No Notes: Caesar lisa Hydrochlori [...] 0.9% 4-10 (Same as: l 02:00: BD [place] 00 Posiflush) Eliquis No Notes: Memoria 4-10 Same as: l 02:00: Eliquis [place] Hydralazine No Notes: Caesar lisa Hydrochlori 4-10 [...] not exceed l #3 00:12: 4gm/day of [place] 00 acetaminop hen. (Same as: Tylenol with [...] not exceed l #3 00:12: 4gm/day of [place] acetaminop hen. (Same as: Tylenol with Codeine # 3) Buspirone No Notes: Memori a 4-09 (Same As: l 22:00: BuSpar) Lisinopril No 40 mg, 1 Mem oria 4-09 tab, l 22:00: Route: PO, [place] Drug form: TAB, BID, Dosing Weight 97.273, kg, Start date: 08/29/20 17:00:00 CDT, Duration: 30 day, Stop date: 09/28/20 9:00:00 CDT metoprolol 1-0 No 100 mg, 1 Me moria tartrate 4-09 tab, l 22:00: Route: PO, [place] Drug form: TAB, BID, Dosing Weight 97.273, [...] tartrate 4-09 tab, l 22:00: Route: PO, [place] Drug form: TAB, BID, Dosing Weight 97.273, kg, Start date: 08/29/20 17:00:00 CDT, Duration: 30 day, Stop date: 09/28/20 9:00:00 CDT Buspirone 1-0 No Notes: Memori a 4- (Same As: l 22:00: BuSpar) Raltegravir 2020-0 [...] tartrate 4-09 tab, l 22:00: Route: PO, [place] 00 Drug form: TAB, BID, Dosing Weight 97.273, kg, Start date: 08/29/20 17:00:00 CDT, Duration: 30 day, Stop date: 09/28/20 9:00:00 CDT Raltegravir 1-0 No 400 mg, 1 M emoria 400 MG Oral - tab, l Tablet 22:00: Route: POSkylar nn [ISENTRESS] 00 Drug form: TAB, BID, Dosing Weight 97.273, kg, Start date: 08/29/20 17:00:00 CDT, Duration: 30 day, Stop date: 09/28/20 9:00:00 CDT, 0 Buspirone 2020-0 No Notes: Memori a 08-29 (Same As: l 22:00: BuSpar) Lisinopril 1-0 No 40 mg, 1 Mem oria 4-09 tab, l 22:00: Route: PO, [place] 00 Drug form: TAB, BID, Dosing Weight [...] oria 4-09 tab, l 22:00: Route: PO, [place] 00 Drug form: TAB, BID, Dosing Weight [...] oria 4-09 tab, l 22:00: Route: PO, [place] Drug form: TAB, BID, Dosing Weight 97.273, [...] Notes: Memoria 4-09 (Same l 17:07: as:MORPhin [place] 00 e Sulfate) Morphine No Notes: Memoria 4-09 (Same l 17:07: as:MORPhin Marty 00 e Sulfate) Morphine No Notes: Memoria 4-09 (Same l 17:07: as:MORPhin [place] 00 e Sulfate) Morphine No Notes: Memoria 4-09 (Same l 17:07: as:MORPhin [place] 00 e Sulfate) Morphine No Notes: Memoria 4-09 (Same l 17:07: as:MORPhin [place] 00 e Sulfate) Morphine No Notes: Memoria 4-09 (Same l 17:07: as:MORPhin [place] 00 e Sulfate) buPROPion 2020-0 No 150 [...] tab, PO, l oral 15:27: Daily, # [place] enteric 00 30 tab, 0 coated Refill(s), [...] tab, PO, l oral 15:27: Daily, # [place] enteric 00 30 tab, 0 coated Refill(s), tablet Pharmacy: [facility] 149, 162.56, cm, 08/29/20 5:30:00 CDT, Height, 97.273, kg, 08/29/20 5:30:00 CDT, Weight pantoprazol 2021-0 Yes 40 mg = 1 M emoria e 40 mg 4-09 tab, PO, l oral 15:27: Daily, # [place] enteric 00 30 tab, 0 coated Refill(s), [...] tab, PO, l oral 15:26: Daily, # [place] enteric 00 30 tab, 0 coated Refill(s) [...] tab, PO, l oral 15:26: Daily, # [place] enteric 00 30 tab, 0 coated Refill(s) [...] tab, PO, l oral 15:26: Daily, # [place] enteric 00 30 tab, 0 coated Refill(s) [...] tab, PO, l oral 15:26: Daily, # [place] enteric 00 30 tab, 0 coated Refill(s) [...] tab, PO, l oral 15:26: Daily, # [place] enteric 00 30 tab, 0 coated Refill(s) [...] Skylar nn 00 tab, 0 Refill(s), Pharmacy: [facility] 149, 162.56, cm, 08/29/20 5:30:00 CDT, Height, 97.273, kg, 08/29/20 5:30:00 CDT, Weight Saline No Notes: Memoria Flush 0.9% 4-09 (Same as: l 15:25: BD [place] 00 Posiflush) Lorazepam No Notes: Memori a 4-09 (Same as: l 15:25: Ativan) Marty Saline No Notes: Memoria Flush 0.9% 4-09 (Same as: l 15:25: BD [place] 00 Posiflush) Lorazepam No Notes: Memori a 4-09 (Same as: l 15:25: Ativan) [place] Saline No Notes: Memoria Flush 0.9% 4-09 (Same as: l 15:25: BD Marty 00 Posiflush) Saline No Notes: Memoria Flush 0.9% 4-09 (Same as: l 15:25: BD [place] 00 Posiflush) Lorazepam No Notes: Memori a 4-09 (Same as: l 15:25: Ativan) Marty 00 Lorazepam No Notes: Memori a 4-09 (Same as: l 15:25: Ativan) [place] Saline No Notes: Memoria Flush 0.9% 4-09 (Same as: l 15:25: BD [place] 00 Posiflush) Lorazepam No Notes: Memori a 4-09 (Same as: l 15:25: Ativan) [place] 00 Saline No Notes: Memoria Flush 0.9% 4-09 (Same as: l 15:25: BD [place] 00 Posiflush) Lorazepam No Notes: Memori a 4-09 (Same as: l 15:25: Ativan) Marty Saline No Notes: Memoria Flush 0.9% 4-09 (Same as: l 15:25: BD Marty 00 Posiflush) Lorazepam 2021-0 No Notes: Memori a 08-29 (Same as: l 15:25: Ativan) Isuprel HCl No Route: IV, Memoria (ANES) 0.2 08-29 Drug form: l mg + 15:00: INJ, [place] 00 Dosing Weight 97.3, kg, Start date: [...] Drug form: l 14:18: INJ, ONCE, Marty Stop date: 08/29/20 9:18:00 CDT heparin 2020-0 No Route: IV, Caesar lisa (ANES) 08-29 Drug form: l 14:18: INJ, ONCE, Marty Stop date: 08/29/20 9:18:00 CDT heparin 2020-0 No Route: IV, Caesar lisa (ANES) 08-29 Drug form: l 14:18: INJ, ONCE, Maybe[place] Stop date: 08/29/20 9:18:00 CDT Labetalol 2020-0 No 10 mg, Memori a 08-29 Route: l 14:01: IVP, Marty 00 Q5Min, Dosing Weight 97.273, kg, PRN Elevated BP, Start date: 08/29/20 9:01:00 CDT, Duration: 5 doses or times, Stop date: Limited # of times Acetaminoph 2020-0 No 1,000 mg, M emoria en 08-29 Route: PO, l 14:01: Drug form: [place] 00 TAB, ONCE, Dosing Weight 97.273, kg, [...] oria ne 08-29 Route: l 14:01: IVP, [place] 00 Q5Min, Dosing Weight 97.273, kg, PRN Pain Score 7-10, Start date: 08/29/20 9:01:00 CDT, Duration: 4 doses or times, Stop date: Limited # of times Flumazenil 2020-0 No 0.2 mg, Caesar lisa 08-29 Route: l 14:01: IVP, PRN, [place] 00 Dosing Weight 97.273, kg, PRN Benzodiaze pine Reversal, Initial dose, Start date: 08/29/20 9:01:00 CDT, Duration: 30 day, Stop date: 09/28/20 9:00:00 CDT Naloxone 1-0 No 0.4 mg, Memori a 08-29 Route: l 14:01: IVP, [place] 00 Q2MIN, Dosing Weight 97.273, kg, PRN [...] oria ne 08-29 Route: l 14:01: IVP, [place] 00 Q5Min, Dosing Weight 97.273, kg, PRN [...] Memori a 08-29 Route: l 14:01: IVP, [place] 00 Q2MIN, Dosing Weight 97.273, kg, PRN Narcotic Reversal, Start date: 08/29/20 9:01:00 CDT, Duration: 8 doses or times, Stop date: Limited # of times Ondansetron 1-0 No 4 mg, Memor ia 08-29 Route: l 14:01: IVP, ONCE, [place] Dosing Weight 97.273, kg, PRN Nausea & [...] 08-29 Route: PO, l 14:01: Drug form: [place] 00 TAB, ONCE, Dosing Weight 97.273, kg, [...] oria ne 08-29 Route: l 14:01: IVP, [place] 00 Q5Min, Dosing Weight 97.273, kg, PRN Pain Score 7-10, Start date: 08/29/20 9:01:00 CDT, Duration: 4 doses or times, Stop date: Limited # of times Flumazenil 1-0 No 0.2 mg, Caesar lisa 08-29 Route: l 14:01: IVP, PRN, [place] 00 Dosing Weight 97.273, kg, PRN Benzodiaze [...] ia 08-29 Route: l 14:01: IVP, ONCE, [place] 00 Dosing Weight 97.273, kg, PRN Nausea & Vomiting, Start date: 08/29/20 9:01:00 CDT Labetalol 1-0 No 10 mg, Memori a 08-29 Route: l 14:01: IVP, [place] 00 Q5Min, Dosing Weight 97.273, kg, PRN [...] oria ne 08-29 Route: l 14:01: IVP, [place] 00 Q5Min, Dosing Weight 97.273, kg, PRN [...] ia 08-29 Route: l 14:01: IVP, ONCE, [place] 00 Dosing Weight 97.273, kg, PRN Nausea & Vomiting, Start date: 08/29/20 9:01:00 CDT Labetalol 2021-0 No 10 mg, Memori a 08-29 Route: l 14:01: IVP, [place] 00 Q5Min, Dosing Weight 97.273, kg, PRN [...] Memori a 08-29 Route: l 14:01: IVP, [place] 00 Q5Min, Dosing Weight 97.273, kg, PRN Elevated BP, Start date: 08/29/20 9:01:00 CDT, Duration: 5 doses or times, Stop date: Limited # of times Acetaminoph 2021-0 No 1,000 mg, M emoria en 08-29 Route: PO, l 14:01: Drug form: [place] 00 TAB, ONCE, Dosing Weight 97.273, kg, [...] Drug form: l 10 13:15: INJ, Start [place] microgram date: 08/29/20 8:15:00 CDT, Stop date: 08/29/20 9:15:00 CDT norepinephr 0 No Route: IV, Memoria ine (ANES) 08-29 Drug form: l 10 13:15: INJ, Start Marty microgram date: 08/29/20 8:15:00 CDT, Stop date: 08/29/20 9:15:00 CDT norepinephr 0 No Route: IV, Memoria ine (ANES) 08-29 Drug form: l 10 13:15: INJ, Start [place] microgram 00 date: 08/29/20 8:15:00 CDT, Stop date: 08/29/20 9:15:00 CDT norepinephr 2020-0 No Route: IV, Memoria ine (ANES) 08-29 Drug form: l 10 13:15: INJ, Start [place] microgram 00 date: 08/29/20 8:15:00 CDT, Stop [...] Drug form: l 10 13:15: INJ, Start Maybe[place] microgram date: 08/29/20 8:15:00 CDT, Stop date: 08/29/20 9:15:00 CDT Sodium 2020-0 No Route: IV, Memor ia Chloride 4-09 Total l 0.9% IV 12:30: Volume: [place] (ANES) 1000 00 1,000, mL Start date: 08/29/20 7:30:00 CDT, Stop date: 08/29/20 8:30:00 CDT Sodium 2020-0 No Route: IV, Memor ia Chloride 4-09 Total l 0.9% IV 12:30: Volume: [place] (ANES) 1000 00 1,000, mL Start date: 08/29/20 7:30:00 CDT, Stop date: 08/29/20 8:30:00 CDT Sodium 202-0 No Route: IV, Memor ia Chloride 4-09 Total l 0.9% IV 12:30: Volume: Marty (ANES) 1000 00 1,000, mL Start date: 08/29/20 7:30:00 CDT, Stop date: 08/29/20 8:30:00 CDT Sodium 2021-0 No Route: IV, Memor ia Chloride 4-09 Total l 0.9% IV 12:30: Volume: [place] (ANES) 1000 00 1,000, mL Start date: [...] PO, l Hydrochlori 11:42: Q24H, # 30 [place] de 150 MG 00 tab, 0 Extended Refill(s) Release Tablet 24 HR Yes 150 mg = 1 Memori a Bupropion 4-09 tab, PO, l Hydrochlori 11:42: Q24H, # 30 [place] de 150 MG 00 tab, 0 Extended Refill(s) Release Tablet 24 HR Yes 150 mg = 1 Memori a Bupropion 4-09 tab, PO, l Hydrochlori 11:42: Q24H, # 30 Marty de 150 MG 00 tab, 0 Extended Refill(s) Release Tablet 24 HR Yes 150 mg = 1 Memori a Bupropion 4-09 tab, PO, l Hydrochlori 11:42: Q24H, # 30 [place] de 150 MG 00 tab, 0 Extended Refill(s) Release Tablet 24 HR Yes 150 mg = 1 Memori a Bupropion 4-09 tab, PO, l Hydrochlori 11:42: Q24H, # 30 [place] de 150 MG 00 tab, 0 Extended Refill(s) Release Tablet 24 HR Yes 150 mg = 1 Memori a Bupropion 4-09 tab, PO, l Hydrochlori 11:42: Q24H, # 30 [place] de 150 MG 00 tab, 0 Extended Refill(s) Release Tablet 24 HR 2021-0 Yes 150 mg = 1 Memori a Bupropion 08-29 tab, PO, l Hydrochlori 11:42: Q24H, # 30 [place] de 150 MG 00 tab, 0 Extended Refill(s) Release Tablet apixaban 5 2020-0 Yes 5 mg, PO, Me moria MG Oral 08-29 Q12H, tab, l Tablet 11:41: 0 [place] [Eliquis] 00 Refill(s), For Atrial Fibrilatio n apixaban 5 2020-0 Yes 5 mg, PO, Me moria MG Oral - Q12H, tab, l Tablet 11:41: 0 [place] [Eliquis] 00 Refill(s), For Atrial Fibrilatio n apixaban 5 2020-0 Yes 5 mg, PO, Me moria MG Oral 08-29 Q12H, tab, l Tablet 11:41: 0 [place] [Eliquis] 00 Refill(s), For Atrial Fibrilatio n apixaban 5 2020-0 Yes 5 mg, PO, Me moria MG Oral 08-29 Q12H, tab, l Tablet 11:41: 0 [place] [Eliquis] 00 Refill(s), For Atrial Fibrilatio n apixaban 5 2020-0 Yes 5 mg, PO, Me moria MG Oral - Q12H, tab, l Tablet 11:41: 0 Marty [Eliquis] 00 Refill(s), For Atrial Fibrilatio n apixaban 5 2020-0 Yes 5 mg, PO, Me moria MG Oral 08-29 Q12H, tab, l Tablet 11:41: 0 [place] [Eliquis] 00 Refill(s), For Atrial Fibrilatio n apixaban 5 2020-0 Yes 5 mg, PO, Me moria MG Oral - Q12H, tab, l Tablet 11:41: 0 [place] [Eliquis] 00 Refill(s), For Atrial Fibrilatio n AMIODarone 2020-0 Yes 200 mg = 1 M emoria 200 mg oral -09 tab, PO, l tablet 11:38: Daily, # Marty 00 90 tab, 3 Refill(s) AMIODarone 2020-0 Yes 200 mg = 1 M emoria 200 mg oral 4-09 tab, PO, l tablet 11:38: Daily, # [place] 00 90 tab, 3 Refill(s) AMIODarone 2020-0 [...] Immunizations Ordered Filled Immunization Date Status Comments [facility] e Immunization Name Name SARS-COV-2 [...] COVID-19 2020-07-23 Completed [facility] 00:00:00 [facility] PFIZER COVID-19 2020-07-23 Completed [facility] VACC[facility] 00:00:00 [facility] PFIZER COVID-19 2020-07-23 Completed [facility] VACC[facility] 00:00:00 [facility] PFIZER COVID-19 2020-07-23 Completed [facility] VACC[facility] 00:00:00 [facility] PFIZER COVID-19 2020-07-23 Completed [facility] VACCIN[facility] 00:00:00 [facility] PFIZER COVID-19 2020-07-23 Completed [facility] VACC[facility] 00:00:00 [facility] PFIZER COVID-19 2020-07-23 Completed [facility] VACCIN[facility] 00:00:00 [facility] PFIZER COVID-19 2020-07-23 Completed [facility] VACC[facility] 00:00:00 [facility] PFIZER COVID-19 2020-07-23 Completed [facility]00 [facility] PFIZER COVID-19 2020-07-23 Completed [facility] VACCIN[facility] 00:00:00 [facility] PFIZER COVID-19 2020-07-23 Completed [facility] VACCIN[facility] 00:00:00 [facility] PFIZER COVID-19 2020-07-23 Completed [facility] VACCIN[facility] 00:00:00 [facility] PFIZER COVID-19 2020-07-23 Completed [facility] VACCIN[facility] 00:00:00 [facility] PFIZER COVID-19 2020-07-23 Completed [facility] VACCINATION 00:00:00 [facility] PFIZER COVID-19 2020-07-23 Completed [facility] VACCINATION 00:00:00 [facility] PFIZER COVID-19 2020-07-23 Completed [facility] VACCIN[facility] 00:00:00 [facility] PFIZER COVID-19 2020-07-23 Completed [facility] VACCIN[facility] 00:00:00 [facility] PFIZER COVID-19 2020-07-23 Completed [facility] VACCINATION 00:00:00 [facility] PFIZER COVID-19 2020-07-23 Completed [facility] VACCINATION 00:00:00 [facility] PFIZER COVID-19 2020-07-23 Completed [facility] VACCINATION 00:00:00 [facility] PFIZER COVID-19 2020-07-23 Completed [facility] VACCIN[facility] 00:00:00 [facility] PFIZER COVID-19 2020-07-23 Completed [facility] VACCINATION 00:00:00 [facility] PFIZER COVID-19 2020-07-23 Completed [facility] VACCINATION 00:00:00 [facility] PFIZER COVID-19 2020-07-23 Completed [facility] VACCINATION 00:00:00 [facility] PFIZER COVID-19 2020-07-23 Completed [facility] VACCINATION 00:00:00 [facility] PFIZER COVID-19 2020-07-23 Completed [facility] VACCINATION 00:00:00 [facility] PFIZER COVID-19 2020-07-23 Completed [facility] VACCINATION 00:00:00 [facility] PFIZER COVID-19 2020-07-23 Completed [facility] VACCINATION 00:00:00 [facility] PFIZER COVID-19 2020-07-23 Completed [facility] VACCINATION 00:00:00 [facility] PFIZER COVID-19 2020-07-23 Completed [facility] VACC[facility] 00:00:00 [facility] SARS-COV-2 COVID-19 2020-07-23 Completed [facility] PFIZER VACCINE 00:00:00 [facility] SARS-COV-2 COVID-19 2020-07-23 Completed [facility] PFIZER VACCINE 00:00:00 [facility] SARS-COV-2 COVID-19 2020-07-23 Completed [facility] PFIZER VACCINE 00:00:00 [facility] SARS-COV-2 COVID-19 2020-07-23 Completed [facility] PFIZER VACCINE 00:00:00 [facility] SARS-COV-2 COVID-19 2020-07-23 Completed [facility] PFIZER VACCINE 00:00:00 [facility] SARS-COV-2 COVID-19 2020-07-23 Completed [facility] PFIZER VACCINE 00:00:00 [facility] SARS-COV-2 COVID-19 2020-07-23 Completed [facility] PFIZER VACCINE 00:00:00 [facility] SARS-COV-2 COVID-19 2020-07-23 Completed [facility] PFIZER VACCINE 00:00:00 [facility] SARS-COV-2 COVID-19 2020-07-23 Completed [facility] PFIZER VACCINE 00:00:00 [facility] SARS-COV-2 COVID-19 2020-07-23 Completed [facility] PFIZER VACCINE 00:00:00 [facility] SARS-COV-2 COVID-19 2020-07-23 Completed [facility] PFIZER VACCINE 00:00:00 [facility] SARS-COV-2 COVID-19 2020-07-23 Completed [facility] PFIZER VACCINE 00:00:00 [facility] SARS-COV-2 COVID-19 2020-07-23 Completed [facility] PFIZER VACCINE 00:00:00 [facility] SARS-COV-2 COVID-19 2020-07-23 Completed [facility] PFIZER VACCINE 00:00:00 [facility] PFIZER COVID-19 2020-07-02 Completed [facility]00 [facility] COVID-19 2020-07-02 Com[facility]:00:00 [facility] PFIZER COVID-19 2020-07-02 Completed [facility]00 [facility] PFIZ[facility] COVID-19 2020-07-02 Completed [facility] 00:00:00 [facility] PFIZER COVID-19 2020-07-02 Completed [facility] 00:00:00 [facility] PFIZER COVID-19 2020-07-02 Completed [facility] 00:00:00 [facility] PFIZER COVID-19 2020-07-02 Completed [facility] 00:00:00 [facility] PFIZER COVID-19 2020-07-02 Completed [facility] 00:00:00 [facility] PFIZER COVID-19 2020-07-02 Completed [facility] 00:00:00 [facility] PFIZER COVID-19 2020-07-02 Completed [facility] 00:00:00 [facility] PFIZER COVID-19 2020-07-02 Completed [facility] 00:00:00 [facility] PFIZER COVID-19 2020-07-02 Completed [facility]00 [facility] PFIZER COVID-19 2020-07-02 Completed [facility] 00:00:00 [facility] PFIZER TRAYID-19 2020-07-02 Completed [facility] 00:00:00 [facility] PFIZER COVID-19 2020-07-02 Completed [facility] 00:00:00 [facility] PFIZER COVID-19 2020-07-02 Completed [facility] 00:00:00 [facility] PFIZER COVID-19 2020-07-02 Completed [facility] 00:00:00 [facility] PFIZER COVID-19 2020-07-02 Completed [facility] 00:00:00 [facility] PFIZER COVID-19 2020-07-02 Completed [facility] 00:00:00 [facility] PFIZER COVID-19 2020-07-02 Completed [facility] 00:00:00 [facility] PFIZER COVID-19 2020-07-02 Completed [facility] 00:00:00 [facility] PFIZER COVID-19 2020-07-02 Completed [facility] 00:00:00 [facility] PFIZER COVID-19 2020-07-02 Completed [facility] 00:00:00 [facility] PFIZER COVID-19 2020-07-02 Completed [facility] 00:00:00 [facility] PFIZER COVID-19 2020-07-02 Completed [facility] 00:00:00 [facility] PFIZER COVID-19 2020-07-02 Completed [facility] 00:00:00 [facility] PFIZER COVID-19 2020-07-02 Completed [facility] 00:00:00 [facility] PFIZER COVID-19 2020-07-02 Completed [facility]00 [facility] PFIZ[facility] COVID-19 2020-07-02 Completed [facility]00 [facility] PFIZER COVID-19 2020-07-02 Completed [facility] 00:00:00 [facility] SARS-COV-2 COVID-19 2020-07-02 Completed [facility] P[facility]ZER VACCINE 00:00:00 [facility] SARS-COV-2 COVID-19 2020-07-02 Completed [facility] of PFIZER VACCINE 00:00:00 [facility] SARS-COV-2 COVID-19 2020-07-02 Completed [facility] of PFIZER VACCINE 00:00:00 [facility] SARS-COV-2 COVID-19 2020-07-02 Completed [facility] PFIZER VACCINE 00:00:00 [facility] SARS-COV-2 COVID-19 2020-07-02 Completed [facility] of PFIZER VACCINE 00:00:00 [facility] SARS-COV-2 COVID-19 2020-07-02 Completed [facility] of PFIZER VACCINE 00:00:00 [facility] SARS-COV-2 COVID-19 2020-07-02 Completed [facility] of PFIZER VACCINE 00:00:00 [facility] SARS-COV-2 COVID-19 2020-07-02 Completed [facility] of PFIZER VACCINE 00:00:00 [facility] SARS-COV-2 COVID-19 2020-07-02 Completed [facility] of PFIZER VACCINE 00:00:00 [facility] SARS-COV-2 COVID-19 2020-07-02 Completed [facility] of PFIZER VACCINE 00:00:00 [facility] SARS-COV-2 COVID-19 2020-07-02 Completed [facility] of PFIZER VACCINE 00:00:00 [facility] SARS-COV-2 COVID-19 2020-07-02 Completed [facility] of PFIZER VACCINE 00:00:00 [facility] SARS-COV-2 COVID-19 2020-07-02 Completed [facility] of PFIZER VACCINE 00:00:00 [facility] SARS-COV-2 COVID-19 2020-07-02 Completed [facility] PFIZER VACCINE 00:00:00 [facility] Influenza Virus 2017-03-08 Completed [facility] Vaccine 00:00:00 [facility] Influenza Virus 2017-03-08 Completed [facility] Vaccine 00:00:00 [facility] Influenza Virus 2017-03-08 Completed [facility] Vaccine 00:00:00 [facility] Influenza Virus 2017-03-08 Completed [facility] Vaccine 00:00:00 [facility] Influenza Virus 2017-03-08 Completed [facility] Vaccine 00:00:00 [facility] Influenza Virus 2017-03-08 Completed [facility] Vaccine 00:00:00 [facility] Influenza Virus 2017-03-08 Completed [facility] Vaccine 00:00:00 [facility] Influenza Virus 2017-03-08 Completed [facility] Vaccine 00:00:00 [facility] Influenza Virus 2017-03-08 Completed [facility] Vaccine 00:00:00 [facility] Influenza Virus 2017-03-08 Completed [facility] Vaccine 00:00:00 [facility] Influenza Virus 2017-03-08 Completed [facility] Vaccine 00:00:00 [facility] Influenza Virus 2017-03-08 Completed [facility] Vaccine 00:00:00 [facility] Influenza Virus 2017-03-08 Completed [facility] Vaccine 00:00:00 [facility] Influenza Virus 2017-03-08 Completed [facility] Vaccine 00:00:00 [facility] Influenza Virus 2017-03-08 Completed [facility] Vaccine 00:00:00 [facility] Influenza Virus 2017-03-08 Completed [facility] Vaccine 00:00:00 [facility] Influenza Virus 2017-03-08 Completed [facility] Vaccine 00:00:00 [facility] Influenza Virus 2017-03-08 Completed [facility] Vaccine 00:00:00 [facility] Influenza Virus 2014-01-30 Completed [facility] Vaccine (3+ yrs) 00:00:00 [facility] Pneumococcal 13 2014-01-30 Completed [facility] of Conjugate, PCV13 00:00:00 [facility] dical (Prevnar 13) [place] Influenza Virus 2014-01-30 Completed [facility] of Vaccine (3+ yrs) 00:00:00 [facility] Pneumococcal 13 2014-01-30 Completed [facility] Conjugate, PCV13 00:00:00 [place] [facility] (Prevnar 13) [facility] Influenza Virus 2014-01-30 Completed [facility] Vaccine (3+ yrs) 00:00:00 [place] [facility] Pneumococcal 13 2014-01-30 Completed [facility] Conjugate, PCV13 00:00:00 [place] [facility] (Prevnar 13) [facility] Influenza Virus 2014-01-30 Completed [facility] Vaccine (3+ yrs) 00:00:00 [place] [facility] Pneumococcal 13 2014-01-30 Completed [facility] of Conjugate, PCV13 00:00:00 [facility] dical (Prevnar 13) Branch Influenza Virus 2014-01-30 Completed [facility] Vaccine (3+ yrs) 00:00:00 [place] [facility] Pneumococcal 13 2014-01-30 Completed [facility] of Conjugate, PCV13 00:00:00 [facility] dical (Prevnar 13) Branch Influenza Virus 2014-01-30 Completed [facility] of Vaccine (3+ yrs) 00:00:00 [facility] dical Branch Pneumococcal 13 2014-01-30 Completed [facility] of Conjugate, PCV13 00:00:00 [facility] dical (Prevnar 13) Branch Influenza Virus 2014-01-30 Completed [facility] Vaccine (3+ yrs) 00:00:00 [place] [facility] Pneumococcal 13 2014-01-30 Completed [facility] of Conjugate, PCV13 00:00:00 [facility] dical (Prevnar 13) Branch Influenza Virus 2014-01-30 Completed [facility] of Vaccine (3+ yrs) 00:00:00 [facility] dical Branch Pneumococcal 13 2014-01-30 Completed [facility] of Conjugate, PCV13 00:00:00 [place] [facility] (Prevnar 13) Branch Influenza Virus 2014-01-30 Completed [facility] Vaccine (3+ yrs) 00:00:00 [facility] dical Branch Pneumococcal 13 2014-01-30 Completed [facility] of Conjugate, PCV13 00:00:00 [place] [facility] (Prevnar 13) Branch Influenza Virus 2014-01-30 Completed [facility] of Vaccine (3+ yrs) 00:00:00 [facility] d[facility] Branch Pneumococcal 13 2014-01-30 Completed [facility] of Conjugate, PCV13 00:00:00 [facility] dical (Prevnar 13) Branch Influenza Virus 2014-01-30 Completed [facility] Vaccine (3+ yrs) 00:00:00 [place] [facility] Pneumococcal 13 2014-01-30 Completed [facility] Conjugate, PCV13 00:00:00 [place] [facility] (Prevnar 13) Branch Influenza Virus 2014-01-30 Completed [facility] Vaccine (3+ yrs) 00:00:00 [place] [facility] Pneumococcal 13 2014-01-30 Completed [facility] of Conjugate, PCV13 00:00:00 [facility] dical (Prevnar 13) Branch Influenza Virus 2014-01-30 Completed [facility] Vaccine (3+ yrs) 00:00:00 [place] [facility] Pneumococcal 13 2014-01-30 Completed [facility] of Conjugate, PCV13 00:00:00 [facility] dical (Prevnar 13) Branch Influenza Virus 2014-01-30 Completed [facility] of Vaccine (3+ yrs) 00:00:00 [facility] dical Branch Pneumococcal 13 2014-01-30 Completed [facility] of Conjugate, PCV13 00:00:00 [facility] dical (Prevnar 13) Branch Influenza Virus 2014-01-30 Completed [facility] of Vaccine (3+ yrs) 00:00:00 [facility] dical Branch Pneumococcal 13 2014-01-30 Completed [facility] of Conjugate, PCV13 00:00:00 [facility] dical (Prevnar 13) Branch Influenza Virus 2014-01-30 Completed [facility] of Vaccine (3+ yrs) 00:00:00 [facility] dical Branch Pneumococcal 13 2014-01-30 Completed [facility] of Conjugate, PCV13 00:00:00 [facility] dical (Prevnar 13) Branch Influenza Virus 2014-01-30 Completed [facility] of Vaccine (3+ yrs) 00:00:00 [facility] dical Branch Pneumococcal 13 2014-01-30 Completed [facility] of Conjugate, PCV13 00:00:00 [facility] dical (Prevnar 13) Branch Influenza Virus 2014-01-30 Completed [facility] of Vaccine (3+ yrs) 00:00:00 [facility] dical Branch Pneumococcal 13 2014-01-30 Completed [facility] of Conjugate, PCV13 00:00:00 [facility] dical (Prevnar 13) Branch Pneumococcal 2012-02-16 Completed University o f Polysaccharide, 00:00:00 [facility] PPSV23 (PNEUMOVAX) Branch Influenza Virus 2012-02-16 Completed [facility] of Vaccine 00:00:00 [facility] PPD (TB) 2012-02-16 Completed [facility] of 00:00:00 [facility] Pneumococcal 2012-02-16 Completed [facility] f Polysaccharide, 00:00:00 [place] [facility] PPSV23 (PNEUMOVAX) Branch Influenza Virus 2012-02-16 Completed [facility] Vaccine 00:00:00 [facility] PPD (TB) 2012-02-16 Completed [facility] of 00:00:00 [facility] Pneumococcal 2012-02-16 Completed [facility] f Polysaccharide, 00:00:00 [place] [facility] PPSV23 (PNEUMOVAX) Branch Influenza Virus 2012-02-16 Completed [facility] Vaccine 00:00:00 [facility] PPD (TB) 2012-02-16 Completed [facility] of 00:00:00 [facility] Pneumococcal 2012-02-16 Completed [facility] f Polysaccharide, 00:00:00 [place] [facility] PPSV23 (PNEUMOVAX) Branch Influenza Virus 2012-02-16 Completed [facility] Vaccine 00:00:00 [facility] PPD (TB) 2012-02-16 Completed [facility] of 00:00:00 [facility] Pneumococcal 2012-02-16 Completed [facility] o f Polysaccharide, 00:00:00 [place] [facility] PPSV23 (PNEUMOVAX) Branch Influenza Virus 2012-02-16 Completed [facility] Vaccine 00:00:00 [facility] PPD (TB) 2012-02-16 Completed [facility] of 00:00:00 [facility] Pneumococcal 2012-02-16 Completed [facility] o f Polysaccharide, 00:00:00 [place] [facility] PPSV23 (PNEUMOVAX) Branch Influenza Virus 2012-02-16 Completed [facility] Vaccine 00:00:00 [facility] PPD (TB) 2012-02-16 Completed [facility] of 00:00:00 [facility] Pneumococcal 2012-02-16 Completed [facility] f Polysaccharide, 00:00:00 [place] [facility] PPSV23 (PNEUMOVAX) Branch Influenza Virus 2012-02-16 Completed [facility] Vaccine 00:00:00 [facility] PPD (TB) 2012-02-16 Completed [facility] of 00:00:00 [facility] Pneumococcal 2012-02-16 Completed [facility] f Polysaccharide, 00:00:00 [place] [facility] PPSV23 (PNEUMOVAX) Branch Influenza Virus 2012-02-16 Completed [facility] Vaccine 00:00:00 [facility] PPD (TB) 2012-02-16 Completed [facility] of 00:00:00 [facility] Pneumococcal 2012-02-16 Completed [facility] o f Polysaccharide, 00:00:00 [place] [facility] PPSV23 (PNEUMOVAX) Branch Influenza Virus 2012-02-16 Completed [facility] Vaccine 00:00:00 [facility] PPD (TB) 2012-02-16 Completed [facility] of 00:00:00 [facility] Pneumococcal 2012-02-16 Completed [facility] f Polysaccharide, 00:00:00 [place] [facility] PPSV23 (PNEUMOVAX) Branch Influenza Virus 2012-02-16 Completed [facility] Vaccine 00:00:00 [facility] PPD (TB) 2012-02-16 Completed [facility] of 00:00:00 [facility] Pneumococcal 2012-02-16 Completed [facility] o f Polysaccharide, 00:00:00 [place] [facility] PPSV23 (PNEUMOVAX) Branch Influenza Virus 2012-02-16 Completed [facility] Vaccine 00:00:00 [facility] PPD (TB) 2012-02-16 Completed [facility] of 00:00:00 [facility] Pneumococcal 2012-02-16 Completed [facility] f Polysaccharide, 00:00:00 [place] [facility] PPSV23 (PNEUMOVAX) Branch Influenza Virus 2012-02-16 Completed [facility] Vaccine 00:00:00 [facility] PPD (TB) 2012-02-16 Completed [facility] of 00:00:00 [facility] Pneumococcal 2012-02-16 Completed [facility] o f Polysaccharide, 00:00:00 [place] [facility] PPSV23 (PNEUMOVAX) Branch Influenza Virus 2012-02-16 Completed [facility] Vaccine 00:00:00 [facility] PPD (TB) 2012-02-16 Completed [facility] of 00:00:00 [facility] Pneumococcal 2012-02-16 Completed [facility] o f Polysaccharide, 00:00:00 [place] [facility] PPSV23 (PNEUMOVAX) Branch Influenza Virus 2012-02-16 Completed [facility] Vaccine 00:00:00 [facility] PPD (TB) 2012-02-16 Completed [facility] of 00:00:00 [facility] Pneumococcal 2012-02-16 Completed [facility] o f Polysaccharide, 00:00:00 [place] [facility] PPSV23 (PNEUMOVAX) Branch Influenza Virus 2012-02-16 Completed [facility] Vaccine 00:00:00 [facility] PPD (TB) 2012-02-16 Completed [facility] of 00:00:00 [facility] Pneumococcal 2012-02-16 Completed [facility] o f Polysaccharide, 00:00:00 [place] [facility] PPSV23 (PNEUMOVAX) Branch Influenza Virus 2012-02-16 Completed [facility] Vaccine 00:00:00 [facility] PPD (TB) 2012-02-16 Completed [facility] of 00:00:00 [facility] Pneumococcal 2012-02-16 Completed [facility] o f Polysaccharide, 00:00:00 [place] [facility] PPSV23 (PNEUMOVAX) Branch Influenza Virus 2012-02-16 Completed [facility] Vaccine 00:00:00 [facility] PPD (TB) 2012-02-16 Completed [facility] of 00:00:00 [facility] Pneumococcal 2012-02-16 Completed [facility] o f Polysaccharide, 00:00:00 [place] [facility] PPSV23 (PNEUMOVAX) Branch Influenza Virus 2012-02-16 Completed [facility] Vaccine 00:00:00 [facility] PPD (TB) 2012-02-16 Completed [facility] of 00:00:00 [facility] Hep B, Adol or Pedi 2011-09-01 Completed [facility]ive [facility] of Dosage 00:00:00 [facility] Hep B, Adol or Pedi 2011-09-01 Completed [facility] of Dosage 00:00:00 [facility] Hep B, Adol or Pedi 2011-09-01 Completed [facility] of Dosage 00:00:00 [facility] Hep B, Adol or Pedi 2011-09-01 Completed [facility] of Dosage 00:00:00 [facility] Hep B, Adol or Pedi 2011-09-01 Completed [facility] of Dosage 00:00:00 [facility] Hep B, Adol or Pedi 2011-09-01 Completed [facility] of Dosage 00:00:00 [facility] Hep B, Adol or Pedi 2011-09-01 Completed [facility] of Dosage 00:00:00 [facility] Hep B, Adol or Pedi 2011-09-01 Completed [facility] of Dosage 00:00:00 [facility] Hep B, Adol or Pedi 2011-09-01 Completed [facility] of Dosage 00:00:00 [facility] Hep [...] 2011-03-17 Completed [facility] Dosage 00:00:00 [facility] Hep B, Adol or Pedi 2011-03-17 Completed [facility] Dosage 00:00:00 [facility] Hep B, Adol or Pedi 2011-03-17 Completed [facility] of Dosage 00:00:00 [facility] Hep B, Adol or Pedi 2011-03-17 Completed [facility] of Dosage 00:00:00 [facility] Hep B, Adol or Pedi 2011-03-17 Completed [facility] of Dosage 00:00:00 [facility] Hep B, Adol or Pedi 2011-03-17 Completed [facility] of Dosage 00:00:00 [facility] Hep B, Adol or Pedi 2011-03-17 Completed [facility] of Dosage 00:00:00 [facility] Hep B, Adol or Pedi 2011-03-17 Completed [facility] of Dosage 00:00:00 [facility] Hep B, Adol or Pedi 2011-03-17 Completed [facility] of Dosage 00:00:00 [facility] Influenza Virus 2011-02-10 Completed [facility] Vaccine 00:00:00 [facility] Hep B, Adol or Pedi 2011-02-10 Completed [facility] of Dosage 00:00:00 [facility] Influenza Virus 2011-02-10 Completed [facility] Vaccine 00:00:00 [facility] Hep B, Adol or Pedi 2011-02-10 Completed [facility] of Dosage 00:00:00 [facility] Influenza Virus 2011-02-10 Completed [facility] Vaccine 00:00:00 [facility] Hep B, Adol or Pedi 2011-02-10 Completed [facility] of Dosage 00:00:00 [facility] Influenza Virus 2011-02-10 Completed [facility] Vaccine 00:00:00 [facility] Hep B, Adol or Pedi 2011-02-10 Completed [facility] of Dosage 00:00:00 [facility] Influenza Virus 2011-02-10 Completed [facility] Vaccine 00:00:00 [facility] Hep B, Adol or Pedi 2011-02-10 Completed [facility] of Dosage 00:00:00 [facility] Influenza Virus 2011-02-10 Completed [facility] Vaccine 00:00:00 [facility] Hep B, Adol or Pedi 2011-02-10 Completed [facility] of Dosage 00:00:00 [facility] Influenza Virus 2011-02-10 Completed [facility] Vaccine 00:00:00 [facility] Hep B, Adol or Pedi 2011-02-10 Completed [facility] of Dosage 00:00:00 [facility] Influenza Virus 2011-02-10 Completed [facility] Vaccine 00:00:00 [facility] Hep B, Adol or Pedi 2011-02-10 Completed [facility] of Dosage 00:00:00 [facility] Influenza Virus 2011-02-10 Completed [facility] Vaccine 00:00:00 [facility] Hep B, Adol or Pedi 2011-02-10 Completed [facility] of Dosage 00:00:00 [facility] Influenza Virus 2011-02-10 Completed [facility] Vaccine 00:00:00 [facility] Hep B, Adol or Pedi 2011-02-10 Completed [facility] of Dosage 00:00:00 [facility] Influenza Virus 2011-02-10 Completed [facility] Vaccine 00:00:00 [facility] Hep B, Adol or Pedi 2011-02-10 Completed [facility] of Dosage 00:00:00 [facility] Influenza Virus 2011-02-10 Completed [facility] Vaccine 00:00:00 [facility] Hep B, Adol or Pedi 2011-02-10 Completed [facility] of Dosage 00:00:00 [facility] Influenza Virus 2011-02-10 Completed [facility] Vaccine 00:00:00 [facility] Hep B, Adol or Pedi 2011-02-10 Completed [facility] of Dosage 00:00:00 [facility] Influenza Virus 2011-02-10 Completed [facility] Vaccine 00:00:00 [facility] Hep B, Adol or Pedi 2011-02-10 Completed [facility] of Dosage 00:00:00 [facility] Influenza Virus 2011-02-10 Completed [facility] Vaccine 00:00:00 [facility] Hep B, Adol or Pedi 2011-02-10 Completed [facility] of Dosage 00:00:00 [facility] Influenza Virus 2011-02-10 Completed [facility] Vaccine 00:00:00 [facility] Hep B, Adol or Pedi 2011-02-10 Completed [facility] of Dosage 00:00:00 [facility] Influenza Virus 2011-02-10 Completed [facility] Vaccine 00:00:00 [facility] Hep B, Adol or Pedi 2011-02-10 Completed [facility] of Dosage 00:00:00 [facility] Influenza Virus 2011-02-10 Completed [facility] Vaccine 00:00:00 [facility] Hep B, Adol or Pedi 2011-02-10 Completed [facility] of Dosage 00:00:00 [facility] PPD (TB) 2010-11-18 Completed [facility] of 00:00:00 [facility] TDAP (ADACEL) 2010-11-18 Completed University of VACCINE 00:00:00 [facility] PPD (TB) 2010-11-18 Completed [facility] of 00:00:00 [facility] TDAP (ADACEL) 2010-11-18 Completed [facility] of VACCINE 00:00:00 [facility] PPD (TB) 2010-11-18 Completed [facility] of 00:00:00 [facility] TDAP (ADACEL) 2010-11-18 Completed [facility] of VACCINE 00:00:00 [facility] PPD (TB) 2010-11-18 Completed [facility] of 00:00:00 [facility] TDAP (ADACEL) 2010-11-18 Completed [facility] of VACCINE 00:00:00 [facility] PPD (TB) 2010-11-18 Completed [facility] of 00:00:00 [facility] TDAP (ADACEL) 2010-11-18 Completed [facility] of VACCINE 00:00:00 [facility] PPD (TB) 2010-11-18 Completed [facility] of 00:00:00 [facility] TDAP (ADACEL) 2010-11-18 Completed [facility] of VACCINE 00:00:00 [facility] PPD (TB) 2010-11-18 Completed [facility] of 00:00:00 [facility] TDAP (ADACEL) 2010-11-18 Completed [facility] of VACCINE 00:00:00 [facility] PPD (TB) 2010-11-18 Completed [facility] of 00:00:00 [facility] TDAP (ADACEL) 2010-11-18 Completed [facility] of VACCINE 00:00:00 [facility] PPD (TB) 2010-11-18 Completed [facility] of 00:00:00 [facility] TDAP (ADACEL) 2010-11-18 Completed [facility] of VACCINE 00:00:00 [facility] PPD (TB) 2010-11-18 Completed [facility] of 00:00:00 [facility] TDAP (ADACEL) 2010-11-18 Completed [facility] of VACCINE 00:00:00 [facility] PPD (TB) 2010-11-18 Completed [facility] of 00:00:00 [facility] TDAP (ADACEL) 2010-11-18 Completed [facility] of VACCINE 00:00:00 [facility] PPD (TB) 2010-11-18 Completed [facility] of 00:00:00 [facility] TDAP (ADACEL) 2010-11-18 Completed [facility] of VACCINE 00:00:00 [facility] PPD (TB) 2010-11-18 Completed [facility] of 00:00:00 [facility] TDAP (ADACEL) 2010-11-18 Completed [facility] of VACCINE 00:00:00 [facility] PPD (TB) 2010-11-18 Completed [facility] of 00:00:00 [facility] TDAP (ADACEL) 2010-11-18 Completed [facility] of VACCINE 00:00:00 [facility] PPD (TB) 2010-11-18 Completed [facility] of 00:00:00 [facility] TDAP (ADACEL) 2010-11-18 Completed [facility] of VACCINE 00:00:00 [facility] PPD (TB) 2010-11-18 Completed [facility] of 00:00:00 [facility] TDAP (ADACEL) 2010-11-18 Completed [facility] of VACCINE 00:00:00 [facility] PPD (TB) 2010-11-18 Completed [facility] of 00:00:00 [facility] TDAP (ADACEL) 2010-11-18 Completed [facility] of VACCINE 00:00:00 [facility] PPD (TB) 2010-11-18 Completed [facility] of 00:00:00 [facility] TDAP (ADACEL) 2010-11-18 Completed [facility] of VACCINE 00:00:00 [facility] HEPATITIS A 2004-03-02 Completed [facility] of 00:00:00 [facility] HEPATITIS A 2004-03-02 Completed [facility] of 00:00:00 [facility] HEPATITIS A 2004-03-02 Completed [facility] of 00:00:00 [facility] HEPATITIS A 2004-03-02 Completed [facility] of 00:00:00 [facility] HEPATITIS A 2004-03-02 Completed University of 00:00:00 [facility] HEPATITIS A 2004-03-02 Completed University of 00:00:00 [facility] HEPATITIS A 2004-03-02 Completed University of 00:00:00 [facility] HEPATITIS A 2004-03-02 Completed University of 00:00:00 [facility] HEPATITIS A 2004-03-02 Completed University of 00:00:00 [facility] HEPATITIS A 2004-03-02 Completed University of 00:00:00 [facility] HEPATITIS A 2004-03-02 Completed University of 00:00:00 [facility] HEPATITIS A 2004-03-02 Completed University of 00:00:00 [facility] HEPATITIS A 2004-03-02 Completed University of 00:00:00 [facility] HEPATITIS A 2004-03-02 Completed University of 00:00:00 [facility] HEPATITIS A 2004-03-02 Completed University of 00:00:00 [facility] HEPATITIS A 2004-03-02 Completed University of 00:00:00 [facility] HEPATITIS A 2004-03-02 Completed University of 00:00:00 [facility] HEPATITIS A 2004-03-02 Completed University of 00:00:00 [facility] HEPATITIS A 2003-08-01 Completed University of 00:00:00 [facility] HEPATITIS A 2003-08-01 Completed University of 00:00:00 [facility] HEPATITIS A 2003-08-01 Completed University of 00:00:00 [facility] HEPATITIS A 2003-08-01 Completed [facility] of 00:00:00 [facility] HEPATITIS A 2003-08-01 Completed [facility] of 00:00:00 [facility] HEPATITIS A 2003-08-01 Completed University of 00:00:00 [facility] HEPATITIS A 2003-08-01 Completed University of 00:00:00 [facility] HEPATITIS A 2003-08-01 Completed [facility] of 00:00:00 [facility] HEPATITIS A 2003-08-01 Completed [facility] of 00:00:00 [facility] HEPATITIS A 2003-08-01 Completed [facility] of 00:00:00 [facility] HEPATITIS A 2003-08-01 Completed [facility] of 00:00:00 [facility] HEPATITIS A 2003-08-01 Completed [facility] of 00:00:00 [facility] HEPATITIS A 2003-08-01 Completed [facility] of 00:00:00 [facility] HEPATITIS A 2003-08-01 Completed [facility] of 00:00:00 [facility] HEPATITIS A 2003-08-01 Completed [facility] of 00:00:00 [facility] HEPATITIS A 2003-08-01 Completed [facility] of 00:00:00 [facility] HEPATITIS A 2003-08-01 Completed University of 00:00:00 [facility] HEPATITIS A 2003-08-01 Completed University of 00:00:00 [facility] Pneumococcal 2001-10-04 Completed University o f Polysaccharide, 00:00:00 [place] [facility] PPSV23 (PNEUMOVAX) Branch PPD (TB) 2001-10-04 Completed University of 00:00:00 [facility] Pneumococcal 2001-10-04 Completed University o f Polysaccharide, 00:00:00 [place] [facility] PPSV23 (PNEUMOVAX) Branch PPD (TB) 2001-10-04 Completed [facility] of 00:00:00 [facility] Pneumococcal 2001-10-04 Completed University o f Polysaccharide, 00:00:00 [place] [facility] PPSV23 (PNEUMOVAX) Branch PPD (TB) 2001-10-04 Completed [facility] of 00:00:00 [facility] Pneumococcal 2001-10-04 Completed University o f Polysaccharide, 00:00:00 [place] [facility] PPSV23 (PNEUMOVAX) Branch PPD (TB) 2001-10-04 Completed University of 00:00:00 [facility] Pneumococcal 2001-10-04 Completed University o f Polysaccharide, 00:00:00 [place] [facility] PPSV23 (PNEUMOVAX) Branch PPD (TB) 2001-10-04 Completed [facility] of 00:00:00 [facility] Pneumococcal 2001-10-04 Completed University o f Polysaccharide, 00:00:00 [place] [facility] PPSV23 (PNEUMOVAX) Branch PPD (TB) 2001-10-04 Completed [facility] of 00:00:00 [facility] Pneumococcal 2001-10-04 Completed University o f Polysaccharide, 00:00:00 [place] [facility] PPSV23 (PNEUMOVAX) Branch PPD (TB) 2001-10-04 Completed University of 00:00:00 [facility] Pneumococcal 2001-10-04 Completed University o f Polysaccharide, 00:00:00 [place] [facility] PPSV23 (PNEUMOVAX) Branch PPD (TB) 2001-10-04 Completed [facility] of 00:00:00 [facility] Pneumococcal 2001-10-04 Completed University o f Polysaccharide, 00:00:00 [place] [facility] PPSV23 (PNEUMOVAX) Branch PPD (TB) 2001-10-04 Completed [facility] of 00:00:00 [facility] Pneumococcal 2001-10-04 Completed University o f Polysaccharide, 00:00:00 [place] [facility] PPSV23 (PNEUMOVAX) Branch PPD (TB) 2001-10-04 Completed University of 00:00:00 [facility] Pneumococcal 2001-10-04 Completed University o f Polysaccharide, 00:00:00 [place] [facility] PPSV23 (PNEUMOVAX) Branch PPD (TB) 2001-10-04 Completed [facility] of 00:00:00 [facility] Pneumococcal 2001-10-04 Completed University o f Polysaccharide, 00:00:00 [place] [facility] PPSV23 (PNEUMOVAX) Branch PPD (TB) 2001-10-04 Completed [facility] of 00:00:00 [facility] Pneumococcal 2001-10-04 Completed University o f Polysaccharide, 00:00:00 [place] [facility] PPSV23 (PNEUMOVAX) Branch PPD (TB) 2001-10-04 Completed [facility] of 00:00:00 [facility] Pneumococcal 2001-10-04 Completed University o f Polysaccharide, 00:00:00 [place] [facility] PPSV23 (PNEUMOVAX) Branch PPD (TB) 2001-10-04 Completed [facility] of 00:00:00 [facility] Pneumococcal 2001-10-04 Completed University o f Polysaccharide, 00:00:00 [place] [facility] PPSV23 (PNEUMOVAX) Branch PPD (TB) 2001-10-04 Completed [facility] of 00:00:00 [facility] Pneumococcal 2001-10-04 Completed University o f Polysaccharide, 00:00:00 [place] [facility] PPSV23 (PNEUMOVAX) Branch PPD (TB) 2001-10-04 Completed [facility] of 00:00:00 [facility] Pneumococcal 2001-10-04 Completed University o f Polysaccharide, 00:00:00 [place] [facility] PPSV23 (PNEUMOVAX) Branch PPD (TB) 2001-10-04 Completed [facility] of 00:00:00 [facility] Pneumococcal 2001-10-04 Completed University o f Polysaccharide, 00:00:00 [place] [facility] PPSV23 (PNEUMOVAX) Branch PPD (TB) 2001-10-04 Completed University of 00:00:00 [facility] Vital Signs Vital Name Observation Time Observation Value Comments Source Systolic blood 2022-05-10 22:00:00 159 mm[Hg] Univer sity of pressure [facility] Diastolic blood 2022-05-10 22:00:00 87 mm[Hg] Unive rsity of pressure [facility] Heart rate 2022-05-10 22:00:00 56 /min Universi ty of [facility] Body temperature 2022-05-10 22:00:00 36.61 Amina Univ ersity of [facility] Respiratory rate 2022-05-10 22:00:00 17 /min Univ ersity of [facility] Oxygen saturation in 2022-05-10 22:00:00 98 /min University of Arterial blood by [place] [facility] Pulse oximetry Branch Body weight 2022-05-10 [...] 100 /min University of Arterial blood by [place] [facility] Pulse oximetry [facility] Body temperature 2022-05-08 [...] 99 /min University of Arterial blood by [place] [facility] Pulse oximetry Branch Body temperature 2022-05-06 20:12:00 36.5 Amina Univ ersity of [facility] Body height 2022-05-06 20:12:00 162.6 cm [facility]i ty [facility] Body weight 2022-05-06 20:12:00 78.926 kg [facility] BMI 2022-05-06 20:12:00 29.87 kg/m2 Universi ty of [facility] Systolic blood 2022-04-22 19:50:00 156 mm[Hg] Univer sity of pressure [facility] Diastolic blood 2022-04-22 19:50:00 89 mm[Hg] Unive rsity of pressure [facility] Heart rate 2022-04-22 19:50:00 69 /min [facility] Body temperature 2022-04-22 19:50:00 36.67 Amina Univ [facility] Respiratory rate 2022-04-22 19:50:00 17 /min Univ ersity of [facility] Body height 2022-04-22 19:50:00 162.6 cm [facility] Body weight 2022-04-22 19:50:00 80.74 kg [facility] BMI 2022-04-22 19:50:00 30.55 kg/m2 Universi ty of [facility] Oxygen saturation in 2022-04-22 19:50:00 96 /min University Arterial blood by [facility] Pulse oximetry Branch Systolic blood 2022-03-05 15:23:00 167 mm[Hg] Univer sity of pressure [facility] Diastolic blood 2022-03-05 15:23:00 105 mm[Hg] Unive rsity of pressure [facility] Heart rate 2022-03-05 15:23:00 49 /min [facility] Body temperature 2022-03-05 15:18:00 36.67 Amina Univ ersity of [facility] Respiratory rate 2022-03-05 15:18:00 18 /min Univ ersity of [facility] Body height 2022-03-05 15:18:00 162.6 cm [facility] Body weight 2022-03-05 15:18:00 74.707 kg [facility] BMI 2022-03-05 15:18:00 28.27 kg/m2 [facility] Systolic blood 2022-02-16 21:41:00 169 mm[Hg] Univer sity of pressure [facility] Diastolic blood 2022-02-16 21:41:00 86 mm[Hg] Unive rsity of pressure [facility] Heart rate 2022-02-16 21:41:00 51 /min Universi ty of [facility] Body temperature 2022-02-16 21:41:00 36.56 Amina Univ ersity of [facility] Respiratory rate 2022-02-16 21:41:00 17 /min Univ ersity of [facility] Oxygen saturation in 2022-02-16 21:41:00 98 /min [facility] Arterial blood by [facility] Pulse oximetry Branch Body height 2022-02-11 16:02:00 162.6 cm [facility] [place] Body weight 2022-02-11 16:02:00 79.379 kg Universi ty of [facility] BMI 2022-02-11 16:02:00 30.04 kg/m2 [facility] Systolic blood 2021-11-20 13:47:00 165 mm[Hg] Univer [facility]ity of pressure [facility] [place] Diastolic blood 2021-11-20 13:47:00 83 mm[Hg] Unive rsity of pressure [facility] Heart rate 2021-11-20 13:47:00 58 /min Universi ty of [facility] Body temperature 2021-11-20 13:42:00 36.39 Amina Univ ersity of [facility] Respiratory rate 2021-11-20 13:42:00 16 /min Univ ersity of [facility] Body height 2021-11-20 13:42:00 162.6 cm [facility] [place] Body weight 2021-11-20 13:42:00 84.369 kg [facility] BMI 2021-11-20 13:42:00 31.93 kg/m2 [facility] Systolic blood 2021-07-14 15:18:00 142 mm[Hg] [facility] Diastolic blood 2021-07-14 15:18:00 76 mm[Hg] [facility] Heart rate 2021-07-14 15:18:00 61 [facility] 2021-07-14 15:18:00 162.6 cm [facility] Body weight 2021-07-14 15:18:00 94.802 kg [facility] BMI 2021-07-14 15:18:00 35.87 kg/m2 [facility] Systolic blood 2022-03-05 15:23:00 167 mm[Hg] Univer sity of pressure [facility] Diastolic blood 2022-03-05 15:23:00 105 mm[Hg] Unive rsity of [facility] Heart rate 2022-03-05 15:23:00 49 /min Universi ty [facility] Body temperature 2022-03-05 15:18:00 36.67 [facility] 2022-03-05 15:18:00 18 /[facility] Body height 2022-03-05 15:18:00 162.6 cm Universi ty [facility] Body weight 2022-03-05 15:18:00 74.707 kg Universi ty [facility] BMI 2022-03-05 15:18:00 28[facility]27 [facility] Oxygen saturation in 2022-02-16 21:41:00 98 /min [facility] Arterial blood by [facility] Pulse oximetry Branch Systolic blood 2020-12-08 15:48:00 125 mm[Hg] [facility] pressure Diastolic blood 2020-12-08 15:48:00 76 mm[Hg] [facility] pressure Heart rate 2020-12-08 15:48:00 64 /min [facility] Body temperature 2020-12-08 15:48:00 36.61 Amina [facility] Respiratory rate 2020-12-08 15:48:00 17 /min [facility] Body height 2020-12-08 15:48:00 162.6 cm [facility] Body weight 2020-12-08 15:48:00 98.884 kg [facility] BMI 2020-12-08 15:48:00 37.42 kg/m2 [facility] Oxygen saturation in 2020-12-08 15:48:00 97 /min [facility] Arterial blood by Pulse oximetry Respitory Rate 2020-08-30 13:00:00 Mem[facility] Systolic (mm Hg) 2020-08-30 13:00:00 Caesar rial Marty Diastolic (mm Hg) 2020-08-30 13:00:00 Mem orial [facility] Systolic (mm Hg) 2020-08-30 11:00:00 Caesar rial [facility] Diastolic (mm Hg) 2020-08-30 11:00:00 Mem orial [facility] Temperature Oral (F) 2020-08-30 11:00:00 98.4 F [facility] Respitory Rate 2020-08-30 11:00:00 [facility] Respitory Rate 2020-08-30 10:00:00 Memori al [facility] Systolic (mm Hg) 2020-08-30 10:00:00 Caesar rial [facility] Diastolic (mm Hg) 2020-08-30 10:00:00 Mem orial [facility] Temperature Oral (F) 2020-08-30 00:00:00 96.9 F [facility] Temperature Oral (F) 2020-08-29 11:26:00 97.6 F [facility] Height 2020-08-29 10:30:00 162.56 cm [facility] Weight 2020-08-29 10:30:00 [facility] BMI Calculated 2020-08-29 10:30:00 Memraymond andre [facility] Procedures Procedure Date / Time Performing Clinician Source Performed URINALYSIS 2022-05-10 19:36:00 Home Matthews [facility] TROPONIN I 2022-05-10 18:34:00 Home Matthews [facility] COMP. METABOLIC PANEL 2022-05-10 18:34:00 Home Matthews [facility] ([id number]) [facility] CBC WITH DIFF 2022-05-10 18:34:00 Home Matthews [facility] XR CHEST 2 VW 2022-05-10 17:24:58 Home Matthews [facility] CONSENT/REFUSAL FOR 2022-05-10 16:26:23 Doctor Unassigned, [facility] DIAGNOSIS AND TREATMENT [facility] CONSENT/REFUSAL FOR 2022-05-10 16:26:09 Doctor Unasimone [facility] DIAGNOSIS AND TREATMENT [facility] URINALYSIS 2022-05-08 22:43:00 [facility] XR CHEST 2 VW 2022-05-06 22:56:53 Anette Olea [facility] COMP. METABOLIC PANEL 2022-05-06 22:14:00 Anette Olea [facility] ([id number]) Medical Branch CBC WITH DIFF 2022-05-06 22:14:00 Anette Olea [facility] COVID-19 (ID NOW RAPID 2022-05-06 22:14:00 Anette Olea [facility] TESTING) Medical Branch BASIC METABOLIC PANEL (NA, 2022-04-22 21:23:00 Paulette Gray [facility] K, CL, CO2, GLUCOSE, BUN, Medica l Branch CREATININE, [place]) CBC WITH DIFF 2022-04-22 21:23:00 Paulette Gray [facility] CONSENT/REFUSAL FOR 2022-04-22 19:45:46 Doctor Unassigned, [facility] DIAGNOSIS AND TREATMENT [facility] SARS-COV-2 COVID-19 2022-03-05 16:09:27 [facility] DIMITRIS-SUCROSE VACCINE [address] [place] [address] YRS+, BIVALENT 0.3ML, IM, (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) FLU 2022-03-05 16:09:27 [facility] VACC(),65+YR,0.5 Medica l Branch ML,IM,ADJUVANTED,QUAD(FLUA D) FLU 2022-03-05 16:09:27 [facility] VACC(),65+YR,0.5 Medica [facility] Branch ML,IM,ADJUVANTED,QUAD(FLUA D) SARS-COV-2 COVID-19 2022-03-05 16:09:27 [facility] DIMITRIS-SUCROSE VACCINE [address] [place] [address] YRS+, BIVALENT 0.3ML, IM, (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) MAGNESIUM 2022-02-15 09:41:00 Sofia Garcia [facility] BASIC METABOLIC PANEL (NA, 2022-02-15 09:41:00 Sofia Garcia [facility] K, CL, CO2, GLUCOSE, BUN, Medica l Branch CREATININE, [place]) CBC WITH DIFF 2022-02-15 09:41:00 Sofia Garcia [facility] N-TERMINAL PRO-BNP 2022-02-15 09:41:00 Sofia Garcia [facility] CBC WITH DIFF 2022-02-15 09:41:00 Sofia Garcia [facility] BASIC METABOLIC PANEL (NA, 2022-02-15 09:41:00 Sofia Garcia [facility] K, CL, CO2, GLUCOSE, BUN, Medica l Branch CREATININE, CA) MAGNESIUM 2022-02-15 09:41:00 Sofia Garcia [facility] N-TERMINAL PRO-BNP 2022-02-15 09:41:00 Sofia Garcia [facility] BASIC METABOLIC PANEL (NA, 2022-02-13 09:40:00 Sofia Garcia [facility] K, CL, CO2, GLUCOSE, BUN, Medica l Branch CREATININE, CA) CBC WITH DIFF 2022-02-13 09:40:00 Radha [facility] BASIC METABOLIC PANEL (NA, 2022-02-13 09:40:00 Sofia Garcia [facility] K, CL, CO2, GLUCOSE, BUN, Medica l Branch CREATININE, CA) CBC WITH DIFF 2022-02-13 09:40:00 Sofia Garcia [facility] TROPONIN I 2022-02-11 23:41:00 Sofia Garcia [facility] N-TERMINAL PRO-BNP 2022-02-11 23:41:00 Sofia Garcia [facility] TROPONIN I 2022-02-11 23:41:00 Sofia Garcia [facility] N-TERMINAL PRO-BNP 2022-02-11 23:41:00 Sofia Garcia [facility] HB ECG ROUTINE & RHYTHM 2022-02-11 22:15:36 Sofia Garcia [facility] TRANSTHORACIC ECHO (TTE) 2022-02-11 21:26:50 Sofia Garcia [facility] TRANSTHORACIC ECHO (TTE) 2022-02-11 21:26:50 [facility] 2022-02-11 07:45:43 Reilly Means [facility] CONTRAST [facility] CT ABDOMEN PELVIS W 2022-02-11 07:45:43 Reilly Means [facility] CONTRAST [facility] RAPID INFLUENZA A/B 2022-02-11 06:54:00 Reilly Means [facility] RAPID INFLUENZA A/B 2022-02-11 06:54:00 Reilly Means [facility] URINALYSIS 2022-02-11 06:45:00 [facility] BLOOD CULTURE SCREEN 2022-02-11 04:58:00 Reilly Means [facility] TROPONIN I 2022-02-11 04:58:00 Reilly Means [facility] COMP. METABOLIC PANEL 2022-02-11 04:58:00 Reilly Means [facility] ([id number]) [facility] CBC WITH DIFF 2022-02-11 04:58:00 Reilly Means [facility] PROTHROMBIN TIME / INR 2022-02-11 04:58:00 Reilly Means [facility] ACTIVATED PARTIAL THRMPLAS 2022-02-11 04:58:00 Reilly Means [facility] N-TERMINAL PRO-BNP 2022-02-11 04:58:00 Reilly Means [facility] LACTIC ACID WHOLE BLOOD 2022-02-11 04:58:00 Reilly Means [facility] COVID-19 (ID NOW RAPID 2022-02-11 04:58:00 Reilly Means [facility] TESTING) Medical Branch LAB ONLY COVID 2022-02-11 04:58:00 Reilly Means [facility] CBC WITH DIFF 2022-02-11 04:58:00 Reilly Means [facility] ACTIVATED PARTIAL THRMPLAS 2022-02-11 04:58:00 Reilly Means [facility] PROTHROMBIN TIME / INR 2022-02-11 04:58:00 Reilly Means [facility] COVID-19 (ID NOW RAPID 2022-02-11 04:58:00 Reilly Means [facility] TESTING) Medical Branch COMP. METABOLIC PANEL 2022-02-11 04:58:00 Reilly Means [facility] ([id number]) Medical Branch TROPONIN I 2022-02-11 04:58:00 Reilly Means [facility] N-TERMINAL PRO-BNP 2022-02-11 04:58:00 Reilly Means [facility] BLOOD CULTURE SCREEN 2022-02-11 04:58:00 Reilly Means [facility] LACTIC ACID WHOLE BLOOD 2022-02-11 04:58:00 Reilly Means [facility] LAB ONLY COVID 2022-02-11 04:58:00 Reilly Means [facility] XR CHEST 1 VW 2022-02-11 04:27:42 Reilly Means [facility] XR CHEST 1 VW 2022-02-11 04:27:42 Reilly Means [facility] HOSPITAL ADMISSION 2022-02-10 05:01:00 Doctor Unassigned, [facility] [place] HOSPITAL ADMISSION 2022-02-10 05:01:00 Doctor Unassigned, [facility] [place] ECG 12-LEAD 2021-07-14 15:14:00 Elan Lira [facility] [id number] 2021-06-17 00:00:[address] [facility] GASTROINTESTINAL PANEL 2020-12-08 22:21:00 CadeEliseo arredondo [facility] XR ABDOMEN 1 VW 2020-12-08 18:06:32 [facility] [place] [facility] H[facility] 2020-09-05 22:39:00 Jailyn Eliseo Jean spital SURGICAL PATHOLOGY REQUEST 2020-09-05 21:54:00 [facility] XR CHEST 1 VW PORTABLE 2020-09-05 19:55:00 [facility] DISCHARGE PATIENT 2020-09-05 17:27:55 Lucas Harris [facility] [place] AN ELECTIVE 2020-09-05 16:47:23 Kirit Flood [facility] ENDOTRACHEAL AIRWAY EGD, INTRAOPERATIVE 2020-09-05 16:27:00 [facility] PARTIAL THROMBOPLASTIN 2020-09-05 15:04[facility]00 [facility] TIME (PTT) M. PROTHROMBIN TIME WITH INR 2020-09-05 15:04:00 Mindy Maharaj [facility] M. Plan of Care Planned Activity Planned Date Details Comments Source Future Scheduled 2022-06-11 SHINGLES VACCINES (1 Met [facility] Test 16:10:12 of 2) [code = SHINGLES VACCINES (1 of 2)] Future Scheduled 2022-06-11 BREAST CANCER [facility] Test 16:10:12 SCREENING [code = BREAST CANCER SCREENING] Future Scheduled 2022-06-11 COLONOSCOPY SCREENING [facility] Test 16:10:12 [code = COLONOSCOPY SCREENING] Future Scheduled 2022-06-11 HEPATITIS B VACCINES Met [facility] Test 16:10:12 (1 of 3 - Risk 3-dose series) [code = HEPATITIS B VACCINES (1 of 3 - Risk 3-dose series)] Future Scheduled 2022-06-11 COVID-19 VACCINE (3 - [facility] Test 16:10:12 Booster for Pfizer series) [code = COVID-19 VACCINE (3 - Booster for Pfizer series)] Future Scheduled 2022-06-11 65+ PNEUMOCOCCAL [facility] Test 16:10:12 VACCINE (4 - PPSV23 if available, else PCV20) [code = 65+ PNEUMOCOCCAL VACCINE (4 - PPSV23 if available, else PCV20)] Future Scheduled 2022-06-11 INFLUENZA VACCINE Method [facility] Test 16:10:12 [code = INFLUENZA VACCINE] Future Scheduled 2022-05-10 SHINGLES VACCINES (1 Met [facility] Test 10:21:35 of 2) [code = SHINGLES VACCINES (1 of 2)] Future Scheduled 2022-05-10 BREAST CANCER [facility] Test 10:21:35 SCREENING [code = BREAST CANCER SCREENING] Future Scheduled 2022-05-10 COLONOSCOPY SCREENING [facility] Test 10:21:35 [code = COLONOSCOPY SCREENING] Future Scheduled 2022-05-10 HEPATITIS B VACCINES Met [facility] Test 10:21:35 (1 of 3 - Risk 3-dose series) [code = HEPATITIS B VACCINES (1 of 3 - Risk 3-dose series)] Future Scheduled 2022-05-10 COVID-19 VACCINE ([facility] - [facility] Test 10:21:35 Booster for Pfizer series) [code = COVID-19 VACCINE (3 - Booster for Pfizer series)] Future Scheduled 2022-05-10 65+ [facility]OCOCCAL [facility] Test 10:21:35 VACCINE (4 - PPSV23 if available, else PCV20) [code = 65+ PNEUMOCOCCAL VACCINE (4 - PPSV23 if available, else PCV20)] Future Scheduled 2022-05-10 INFLUENZA VACCINE [facility] Test 10:21:35 [code = INFLUENZA VACCINE] Future Scheduled 2022-05-10 SHINGLES VACCINES (1 Met [facility] Test 10:21:35 of 2) [code = SHINGLES VACCINES (1 of 2)] Future Scheduled 2022-05-10 BREAST CANCER [facility] Test 10:21:35 SCREENING [code = BREAST CANCER SCREENING] Future Scheduled 2022-05-10 COLONOSCOPY SCREENING [facility] Test 10:21:35 [code = COLONOSCOPY SCREENING] Future Scheduled 2022-05-10 HEPATITIS B VACCINES Met [facility] Test 10:21:35 (1 of 3 - Risk 3-dose series) [code = HEPATITIS B VACCINES (1 of 3 - Risk 3-dose series)] Future Scheduled 2022-05-10 COVID-19 VACCINE ([facility] - [facility] Test 10:21:35 Booster for Pfizer series) [code = COVID-19 VACCINE (3 - Booster for Pfizer series)] Future Scheduled 2022-05-10 65+ PNEUMOCOCCAL [facility] Test 10:21:35 VACCINE (4 - PPSV23 if available, else PCV20) [code = 65+ PNEUMOCOCCAL VACCINE (4 - PPSV23 if available, else PCV20)] Future Scheduled 2022-05-10 INFLUENZA VACCINE Method [facility] Test 10:21:35 [code = INFLUENZA VACCINE] Future Scheduled 2022-05-06 SHINGLES VACCINES (1 Met [facility] Test 14:03:13 of 2) [code = SHINGLES VACCINES (1 of 2)] Future Scheduled 2022-05-06 BREAST CANCER [facility] Test 14:03:13 SCREENING [code = BREAST CANCER SCREENING] Future Scheduled 2022-05-06 COLONOSCOPY SCREENING [facility] Test 14:03:13 [code = COLONOSCOPY SCREENING] Future Scheduled 2022-05-06 HEPATITIS B VACCINES Met [facility] Test 14:03:13 (1 of 3 - Risk 3-dose series) [code = HEPATITIS B VACCINES (1 of 3 - Risk 3-dose series)] Future Scheduled 2022-05-06 COVID-19 VACCINE (3 - [facility] Test 14:03:13 Booster for Pfizer series) [code = COVID-19 VACCINE (3 - Booster for Pfizer series)] Future Scheduled 2022-05-06 65+ PNEUMOCOCCAL [facility] Test 14:03:13 VACCINE (4 - PPSV23 if available, else PCV20) [code = 65+ PNEUMOCOCCAL VACCINE (4 - PPSV23 if available, else PCV20)] Future Scheduled 2022-05-06 INFLUENZA VACCINE [facility] Test 14:03:13 [code = INFLUENZA VACCINE] Future Scheduled 2022-04-30 SHINGLES VACCINES (1 Met [facility] Test 01:07:32 of 2) [code = SHINGLES VACCINES (1 of 2)] Future Scheduled 2022-04-30 BREAST CANCER [facility] Test 01:07:32 SCREENING [code = BREAST CANCER SCREENING] Future Scheduled 2022-04-30 COLONOSCOPY SCREENING [facility] Test 01:07:32 [code = COLONOSCOPY SCREENING] Future Scheduled 2022-04-30 HEPATITIS B VACCINES Met [facility] Test 01:07:32 (1 of 3 - Risk 3-dose series) [code = HEPATITIS B VACCINES (1 of 3 - Risk 3-dose series)] Future Scheduled 2022-04-30 COVID-19 VACCINE ([facility] - [facility] Test 01:07:32 Booster for Pfizer series) [code = COVID-19 VACCINE (3 - Booster for Pfizer series)] Future Scheduled 2022-04-30 65+ PNEUMOCOCCAL [facility] Test 01:07:32 VACCINE (4 - PPSV23 if available, else PCV20) [code = 65+ PNEUMOCOCCAL VACCINE (4 - PPSV23 if available, else PCV20)] Future Scheduled 2022-04-30 INFLUENZA VACCINE [facility] Test 01:07:32 [code = INFLUENZA VACCINE] Future Scheduled 2022-04-30 SHINGLES VACCINES (1 Met [facility] Test 01:07:32 of 2) [code = SHINGLES VACCINES (1 of 2)] Future Scheduled 2022-04-30 BREAST CANCER [facility] Test 01:07:32 SCREENING [code = BREAST CANCER SCREENING] Future Scheduled 2022-04-30 COLONOSCOPY SCREENING [facility] Test 01:07:32 [code = COLONOSCOPY SCREENING] Future Scheduled 2022-04-30 HEPATITIS B VACCINES Met [facility] Test 01:07:32 (1 of 3 - Risk 3-dose series) [code = HEPATITIS B VACCINES (1 of 3 - Risk 3-dose series)] Future Scheduled 2022-04-30 COVID-19 VACCINE (3 - [facility] Test 01:07:32 Booster for Pfizer series) [code = COVID-19 VACCINE (3 - Booster for Pfizer series)] Future Scheduled 2022-04-30 65+ PNEUMOCOCCAL [facility] Test 01:07:32 VACCINE (4 - PPSV23 if available, else PCV20) [code = 65+ PNEUMOCOCCAL VACCINE (4 - PPSV23 if available, else PCV20)] Future Scheduled 2022-04-30 INFLUENZA VACCINE [facility] Test 01:07:32 [code = INFLUENZA VACCINE] Future Scheduled 2022-04-30 SHINGLES VACCINES (1 Met [facility] Test 01:07:32 of 2) [code = SHINGLES VACCINES (1 of 2)] Future Scheduled 2022-04-30 BREAST CANCER [facility] Test 01:07:32 SCREENING [code = BREAST CANCER SCREENING] Future Scheduled 2022-04-30 COLONOSCOPY SCREENING [facility] Test 01:07:32 [code = COLONOSCOPY SCREENING] Future Scheduled 2022-04-30 HEPATITIS B VACCINES Met [facility] Test 01:07:32 (1 of 3 - Risk 3-dose series) [code = HEPATITIS B VACCINES (1 of 3 - Risk 3-dose series)] Future Scheduled 2022-04-30 COVID-19 VACCINE ([facility] - [facility] Test 01:07:32 Booster for Pfizer series) [code = COVID-19 VACCINE (3 - Booster for Pfizer series)] Future Scheduled 2022-04-30 65+ PNEUMOCOCCAL [facility] Test 01:07:32 VACCINE (4 - PPSV23 if available, else PCV20) [code = 65+ PNEUMOCOCCAL VACCINE (4 - PPSV23 if available, else PCV20)] Future Scheduled 2022-04-30 INFLUENZA VACCINE Method [facility] Test 01:07:32 [code = INFLUENZA VACCINE] Future Scheduled 2022-04-25 SHINGLES VACCINES (1 Met [facility] Test 01:45:02 of 2) [code = SHINGLES VACCINES (1 of 2)] Future Scheduled 2022-04-25 BREAST CANCER [facility] Test 01:45:02 SCREENING [code = BREAST CANCER SCREENING] Future Scheduled 2022-04-25 COLONOSCOPY SCREENING [facility] Test 01:45:02 [code = COLONOSCOPY SCREENING] Future Scheduled 2022-04-25 HEPATITIS B VACCINES Met [facility] Test 01:45:02 (1 of 3 - Risk 3-dose series) [code = HEPATITIS B VACCINES (1 of 3 - Risk 3-dose series)] Future Scheduled 2022-04-25 COVID-19 VACCINE (3 - [facility] Test 01:45:02 Booster for Pfizer series) [code = COVID-19 VACCINE (3 - Booster for Pfizer series)] Future Scheduled 2022-04-25 65[facility] VACCINE (4 - PPSV23 if available, else PCV20) [code = 65+ PNEUMOCOCCAL VACCINE (4 - PPSV23 if available, else PCV20)] Future Scheduled 2022-04-25 INFLUENZA VACCINE Method [facility] Test 01:45:02 [code = INFLUENZA VACCINE] Future Scheduled 2022-03-25 SHINGLES VACCINES (1 Met [facility] Test 14:48:42 of 2) [code = SHINGLES VACCINES (1 of 2)] Future Scheduled 2022-03-25 BREAST CANCER [facility] Test 14:48:42 SCREENING [code = BREAST CANCER SCREENING] Future Scheduled 2022-03-25 COLONOSCOPY SCREENING [facility] Test 14:48:42 [code = COLONOSCOPY SCREENING] Future Scheduled 2022-03-25 HEPATITIS B VACCINES Met [facility] Test 14:48:42 (1 of 3 - Risk 3-dose series) [code = HEPATITIS B VACCINES (1 of 3 - Risk 3-dose series)] Future Scheduled 2022-03-25 COVID-19 VACCINE (3 - Me [facility] Test 14:48:42 Booster for Pfizer series) [code = COVID-19 VACCINE (3 - Booster for Pfizer series)] Future Scheduled 2022-03-25 65+ [facility]CCAL [facility] Test 14:48:42 VACCINE (4 - PPSV23 if available, else PCV20) [code = 65+ PNEUMOCOCCAL VACCINE (4 - PPSV23 if available, else PCV20)] Future Scheduled 2022-03-25 INFLUENZA VACCINE [facility] Test 14:48:42 [code = INFLUENZA VACCINE] Future Scheduled 2022-03-25 SHINGLES VACCINES (1 Met [facility] Test 14:48:42 of 2) [code = SHINGLES VACCINES (1 of 2)] Future Scheduled 2022-03-25 BREAST CANCER [facility] Test 14:48:42 SCREENING [code = BREAST CANCER SCREENING] Future Scheduled 2022-03-25 COLONOSCOPY SCREENING [facility] Test 14:48:42 [code = COLONOSCOPY SCREENING] Future Scheduled 2022-03-25 HEPATITIS B VACCINES Met [facility] Test 14:48:42 (1 of 3 - Risk 3-dose series) [code = HEPATITIS B VACCINES (1 of 3 - Risk 3-dose series)] Future Scheduled 2022-03-25 COVID-19 VACCINE (3 - Me [facility] Test 14:48:42 Booster for Pfizer series) [code = COVID-19 VACCINE (3 - Booster for Pfizer series)] Future Scheduled 2022-03-25 65+ [facility] 14:48:42 VACCINE (4 - PPSV23 if available, else PCV20) [code = 65+ PNEUMOCOCCAL VACCINE (4 - PPSV23 if available, else PCV20)] Future Scheduled 2022-03-25 INFLUENZA VACCINE [facility] Test 14:48:42 [code = INFLUENZA VACCINE] Future Scheduled 2022-03-25 SHINGLES VACCINES (1 Met [facility] Test 14:48:42 of 2) [code = SHINGLES VACCINES (1 of 2)] Future Scheduled 2022-03-25 BREAST CANCER [facility] Test 14:48:42 SCREENING [code = BREAST CANCER SCREENING] Future Scheduled 2022-03-25 COLONOSCOPY SCREENING [facility] Test 14:48:42 [code = COLONOSCOPY SCREENING] Future Scheduled 2022-03-25 HEPATITIS B VACCINES Met [facility] Test 14:48:42 (1 of 3 - Risk 3-dose series) [code = HEPATITIS B VACCINES (1 of 3 - Risk 3-dose series)] Future Scheduled 2022-03-25 COVID-19 VACCINE (3 - [facility] Test 14:48:42 Booster for Pfizer series) [code = COVID-19 VACCINE (3 - Booster for Pfizer series)] Future Scheduled 2022-03-25 65[facility] VACCINE (4 - PPSV23 if available, else PCV20) [code = 65+ PNEUMOCOCCAL VACCINE (4 - PPSV23 if available, else PCV20)] Future Scheduled 2022-03-25 INFLUENZA VACCINE [facility] Test 14:48:42 [code = INFLUENZA VACCINE] Future Scheduled 2022-03-25 SHINGLES VACCINES (1 Met [facility] Test 14:48:42 of 2) [code = SHINGLES VACCINES (1 of 2)] Future Scheduled 2022-03-25 BREAST CANCER [facility] Test 14:48:42 SCREENING [code = BREAST CANCER SCREENING] Future Scheduled 2022-03-25 COLONOSCOPY SCREENING [facility] Test 14:48:42 [code = COLONOSCOPY SCREENING] Future Scheduled 2022-03-25 HEPATITIS B VACCINES Met [facility] Test 14:48:42 (1 of 3 - Risk 3-dose series) [code = HEPATITIS B VACCINES (1 of 3 - Risk 3-dose series)] Future Scheduled 2022-03-25 COVID-19 VACCINE (3 - [facility] Test 14:48:42 Booster for Pfizer series) [code = COVID-19 VACCINE (3 - Booster for Pfizer series)] Future Scheduled 2022-03-25 65+ [facility]CCAL [facility] Test 14:48:42 VACCINE (4 - PPSV23 if available, else PCV20) [code = 65+ PNEUMOCOCCAL VACCINE (4 - PPSV23 if available, else PCV20)] Future Scheduled 2022-03-25 INFLUENZA VACCINE [facility] Test 14:48:42 [code = INFLUENZA VACCINE] Future Scheduled 2022-03-25 SHINGLES VACCINES (1 Met [facility] Test 14:48:42 of 2) [code = SHINGLES VACCINES (1 of 2)] Future Scheduled 2022-03-25 BREAST CANCER [facility] Test 14:48:42 SCREENING [code = BREAST CANCER SCREENING] Future Scheduled 2022-03-25 COLONOSCOPY SCREENING [facility] Test 14:48:42 [code = COLONOSCOPY SCREENING] Future Scheduled 2022-03-25 HEPATITIS B VACCINES Met [facility] Test 14:48:42 (1 of 3 - Risk 3-dose series) [code = HEPATITIS B VACCINES (1 of 3 - Risk 3-dose series)] Future Scheduled 2022-03-25 COVID-19 VACCINE (3 - [facility] Test 14:48:42 Booster for Pfizer series) [code = COVID-19 VACCINE (3 - Booster for Pfizer series)] Future Scheduled 2022-03-25 65+ [facility]OCCAL [facility] Test 14:48:42 VACCINE (4 - PPSV23 if available, else PCV20) [code = 65+ PNEUMOCOCCAL VACCINE (4 - PPSV23 if available, else PCV20)] Future Scheduled 2022-03-25 INFLUENZA VACCINE Method [facility] Test 14:48:42 [code = INFLUENZA VACCINE] Future Scheduled 2022-03-25 SHINGLES VACCINES (1 Met [facility] Test 14:48:42 of 2) [code = SHINGLES VACCINES (1 of 2)] Future Scheduled 2022-03-25 BREAST CANCER [facility] Test 14:48:42 SCREENING [code = BREAST CANCER SCREENING] Future Scheduled 2022-03-25 COLONOSCOPY SCREENING [facility] Test 14:48:42 [code = COLONOSCOPY SCREENING] Future Scheduled 2022-03-25 HEPATITIS B VACCINES Met [facility] Test 14:48:42 (1 of 3 - Risk 3-dose series) [code = HEPATITIS B VACCINES (1 of 3 - Risk 3-dose series)] Future Scheduled 2022-03-25 [facility] 14:48:42 Booster for Pfizer series) [code = COVID-19 VACCINE (3 - Booster for Pfizer series)] Future Scheduled 2022-03-25 65[facility] VACCINE (4 - PPSV23 if available, else PCV20) [code = 65+ PNEUMOCOCCAL VACCINE (4 - PPSV23 if available, else PCV20)] Future Scheduled 2022-03-25 INFLUENZA VACCINE [facility] Test 14:48:42 [code = INFLUENZA VACCINE] Future Scheduled 2022-03-25 SHINGLES VACCINES (1 Met [facility] Test 14:48:42 of 2) [code = SHINGLES VACCINES (1 of 2)] Future Scheduled 2022-03-25 BREAST CANCER [facility] Test 14:48:42 SCREENING [code = BREAST CANCER SCREENING] Future Scheduled 2022-03-25 COLONOSCOPY SCREENING [facility] Test 14:48:42 [code = COLONOSCOPY SCREENING] Future Scheduled 2022-03-25 HEPATITIS B VACCINES Met [facility] Test 14:48:42 (1 of 3 - Risk 3-dose series) [code = HEPATITIS B VACCINES (1 of 3 - Risk 3-dose series)] Future Scheduled 2022-03-25 [facility]ACC[facility] 14:48:42 Booster for Pfizer series) [code = COVID-19 VACCINE (3 - Booster for Pfizer series)] Future Scheduled 2022-03-25 65+ [facility] VACCINE (4 - PPSV23 if available, else PCV20) [code = 65+ PNEUMOCOCCAL VACCINE (4 - PPSV23 if available, else PCV20)] Future Scheduled 2022-03-25 INFLUENZA VACCINE [facility] Test 14:48:42 [code = INFLUENZA VACCINE] Future Scheduled 2022-03-25 SHINGLES VACCINES (1 Met [facility] Test 14:48:42 of 2) [code = SHINGLES VACCINES (1 of 2)] Future Scheduled 2022-03-25 BREAST CANCER [facility] Test 14:48:42 SCREENING [code = BREAST CANCER SCREENING] Future Scheduled 2022-03-25 COLONOSCOPY SCREENING [facility] Test 14:48:42 [code = COLONOSCOPY SCREENING] Future Scheduled 2022-03-25 HEPATITIS B VACCINES Met [facility] Test 14:48:42 (1 of 3 - Risk 3-dose series) [code = HEPATITIS B VACCINES (1 of 3 - Risk 3-dose series)] Future Scheduled 2022-03-25 COVID-19 VACCINE (3 - Me [facility] Test 14:48:42 Booster for Pfizer series) [code = COVID-19 VACCINE (3 - Booster for Pfizer series)] Future Scheduled 2022-03-25 65+ [facility] 14:48[facility] VACCINE (4 - PPSV23 if available, else PCV20) [code = 65+ PNEUMOCOCCAL VACCINE (4 - PPSV23 if available, else PCV20)] Future Scheduled 2022-03-25 INFLUENZA VACCINE [facility] Test 14:48:42 [code = INFLUENZA VACCINE] Future Scheduled 2022-03-25 SHINGLES VACCINES (1 Met [facility] Test 14:48:42 of 2) [code = SHINGLES VACCINES (1 of 2)] Future Scheduled 2022-03-25 BREAST CANCER [facility] Test 14:48:42 SCREENING [code = BREAST CANCER SCREENING] Future Scheduled 2022-03-25 COLONOSCOPY SCREENING [facility] Test 14:48:42 [code = COLONOSCOPY SCREENING] Future Scheduled 2022-03-25 HEPATITIS B VACCINES Met [facility] Test 14:48:42 (1 of 3 - Risk 3-dose series) [code = HEPATITIS B VACCINES (1 of 3 - Risk 3-dose series)] Future Scheduled 2022-03-25 COVID-19 VACCINE (3 - [facility] Test 14:48:42 Booster for Pfizer series) [code = COVID-19 VACCINE (3 - Booster for Pfizer series)] Future Scheduled 2022-03-25 65+ [facility]OCOCCAL [facility] Test 14:48:42 VACCINE (4 - PPSV23 if available, else PCV20) [code = 65+ PNEUMOCOCCAL VACCINE (4 - PPSV23 if available, else PCV20)] Future Scheduled 2022-03-25 INFLUENZA VACCINE [facility] Test 14:48:42 [code = INFLUENZA VACCINE] Future Scheduled 2022-03-04 SHINGLES VACCINES (1 Met [facility] Test 14:03:57 of 2) [code = SHINGLES VACCINES (1 of 2)] Future Scheduled 2022-03-04 BREAST CANCER [facility] Test 14:03:57 SCREENING [code = BREAST CANCER SCREENING] Future Scheduled 2022-03-04 COLONOSCOPY SCREENING [facility] Test 14:03:57 [code = COLONOSCOPY SCREENING] Future Scheduled 2022-03-04 HEPATITIS B VACCINES Met [facility] Test 14:03:57 (1 of 3 - Risk 3-dose series) [code = HEPATITIS B VACCINES (1 of 3 - Risk 3-dose series)] Future Scheduled 2022-03-04 [facility] 14:03:57 Booster for Pfizer series) [code = COVID-19 VACCINE (3 - Booster for Pfizer series)] Future Scheduled 2022-03-04 65[facility]:03[facility] VACCINE (4 - PPSV23 if available, else PCV20) [code = 65+ PNEUMOCOCCAL VACCINE (4 - PPSV23 if available, else PCV20)] Future Scheduled 2022-03-04 INFLUENZA VACCINE [facility] Test 14:03:57 [code = INFLUENZA VACCINE] Future Scheduled 2022-03-04 SHINGLES VACCINES (1 Met [facility] Test 14:03:57 of 2) [code = SHINGLES VACCINES (1 of 2)] Future Scheduled 2022-03-04 BREAST CANCER [facility] Test 14:03:57 SCREENING [code = BREAST CANCER SCREENING] Future Scheduled 2022-03-04 COLONOSCOPY SCREENING [facility] Test 14:03:57 [code = COLONOSCOPY SCREENING] Future Scheduled 2022-03-04 HEPATITIS B VACCINES Met [facility] Test 14:03:57 (1 of 3 - Risk 3-dose series) [code = HEPATITIS B VACCINES (1 of 3 - Risk 3-dose series)] Future Scheduled 2022-03-04 COVID-19 VACCINE (3 - [facility] Test 14:03:57 Booster for Pfizer series) [code = COVID-19 VACCINE (3 - Booster for Pfizer series)] Future Scheduled 2022-03-04 65+ [facility]OCOCCAL [facility] Test 14:03:57 VACCINE (4 - PPSV23 if available, else PCV20) [code = 65+ PNEUMOCOCCAL VACCINE (4 - PPSV23 if available, else PCV20)] Future Scheduled 2022-03-04 INFLUENZA VACCINE [facility] Test 14:03:57 [code = INFLUENZA VACCINE] Future Scheduled 2022-03-04 SHINGLES VACCINES (1 Met [facility] Test 14:03:57 of 2) [code = SHINGLES VACCINES (1 of 2)] Future Scheduled 2022-03-04 BREAST CANCER [facility] Test 14:03:57 SCREENING [code = BREAST CANCER SCREENING] Future Scheduled 2022-03-04 COLONOSCOPY SCREENING [facility] Test 14:03:57 [code = COLONOSCOPY SCREENING] Future Scheduled 2022-03-04 HEPATITIS B VACCINES Met [facility] Test 14:03:57 (1 of 3 - Risk 3-dose series) [code = HEPATITIS B VACCINES (1 of 3 - Risk 3-dose series)] Future Scheduled 2022-03-04 COVID-19 VACCINE (3 - [facility] Test 14:03:57 Booster for Pfizer series) [code = COVID-19 VACCINE (3 - Booster for Pfizer series)] Future Scheduled 2022-03-04 65+ PNEUMOCOCCAL [facility] Test 14:03:57 VACCINE (4 - PPSV23 if available, else PCV20) [code = 65+ PNEUMOCOCCAL VACCINE (4 - PPSV23 if available, else PCV20)] Future Scheduled 2022-03-04 INFLUENZA VACCINE [facility] Test 14:03:57 [code = INFLUENZA VACCINE] Future Scheduled 2022-03-04 SHINGLES VACCINES (1 Met [facility] Test 14:03:57 of 2) [code = SHINGLES VACCINES (1 of 2)] Future Scheduled 2022-03-04 BREAST CANCER [facility] Test 14:03:57 SCREENING [code = BREAST CANCER SCREENING] Future Scheduled 2022-03-04 COLONOSCOPY SCREENING [facility] Test 14:03:57 [code = COLONOSCOPY SCREENING] Future Scheduled 2022-03-04 HEPATITIS B VACCINES Met [facility] Test 14:03:57 (1 of 3 - Risk 3-dose series) [code = HEPATITIS B VACCINES (1 of 3 - Risk 3-dose series)] Future Scheduled 2022-03-04 COVID-19 VACCINE (3 - [facility] Test 14:03:57 Booster for Pfizer series) [code = COVID-19 VACCINE (3 - Booster for Pfizer series)] Future Scheduled 2022-03-04 65+ [facility]OCOCCAL [facility] Test 14:03:57 VACCINE (4 - PPSV23 if available, else PCV20) [code = 65+ PNEUMOCOCCAL VACCINE (4 - PPSV23 if available, else PCV20)] Future Scheduled 2022-03-04 INFLUENZA VACCINE [facility] Test 14:03:57 [code = INFLUENZA VACCINE] Future Scheduled 2022-02-11 SHINGLES VACCINES (1 Met [facility] Test 13:39:12 of 2) [code = SHINGLES VACCINES (1 of 2)] Future Scheduled 2022-02-11 BREAST CANCER [facility] Test 13:39:12 SCREENING [code = BREAST CANCER SCREENING] Future Scheduled 2022-02-11 COLONOSCOPY SCREENING [facility] Test 13:39:12 [code = COLONOSCOPY SCREENING] Future Scheduled 2022-02-11 HEPATITIS B VACCINES [facility] Test 13:39:12 (1 of 3 - Risk 3-dose series) [code = HEPATITIS B VACCINES (1 of 3 - Risk 3-dose series)] Future Scheduled 2022-02-11 COVID-19 VACCINE (3 - [facility] Test 13:39:12 Booster for Pfizer series) [code = COVID-19 VACCINE (3 - Booster for Pfizer series)] Future Scheduled 2022-02-11 65+ [facility]OCOCCAL [facility] Test 13:39:12 VACCINE (4 - PPSV23 or PCV20) [code = 65+ PNEUMOCOCCAL VACCINE (4 - PPSV23 or PCV20)] Future Scheduled 2022-02-11 INFLUENZA VACCINE [facility] Test 13:39:12 [code = INFLUENZA VACCINE] Future Scheduled 2022-01-29 SHINGLES VACCINES (1 Met [facility] Test 14:07:20 of 2) [code = SHINGLES VACCINES (1 of 2)] Future Scheduled 2022-01-29 BREAST CANCER [facility] Test 14:07:20 SCREENING [code = BREAST CANCER SCREENING] Future Scheduled 2022-01-29 COLONOSCOPY SCREENING [facility] Test 14:07:20 [code = COLONOSCOPY SCREENING] Future Scheduled 2022-01-29 HEPATITIS B VACCINES [facility] Test 14:07:20 (1 of 3 - Risk 3-dose series) [code = HEPATITIS B VACCINES (1 of 3 - Risk 3-dose series)] Future Scheduled 2022-01-29 COVID-19 VACCINE (3 - [facility] Test 14:07:20 Booster for Pfizer series) [code = COVID-19 VACCINE (3 - Booster for Pfizer series)] Future Scheduled 2022-01-29 65[facility] 14:07:20 VACCINE (4 - PPSV23 or PCV20) [code = 65+ PNEUMOCOCCAL VACCINE (4 - PPSV23 or PCV20)] Future Scheduled 2022-01-29 INFLUENZA VACCINE [facility] Test 14:07:20 [code = INFLUENZA VACCINE] Future Scheduled 2022-01-29 SHINGLES VACCINES (1 Met [facility] Test 14:07:20 of 2) [code = SHINGLES VACCINES (1 of 2)] Future Scheduled 2022-01-29 BREAST CANCER [facility] Test 14:07:20 SCREENING [code = BREAST CANCER SCREENING] Future Scheduled 2022-01-29 COLONOSCOPY SCREENING [facility] Test 14:07:20 [code = COLONOSCOPY SCREENING] Future Scheduled 2022-01-29 HEPATITIS B VACCINES [facility] Test 14:07:20 (1 of 3 - Risk 3-dose series) [code = HEPATITIS B VACCINES (1 of 3 - Risk 3-dose series)] Future Scheduled 2022-01-29 COVID-19 VACCINE (3 - [facility] Test 14:07:20 Booster for Pfizer series) [code = COVID-19 VACCINE (3 - Booster for Pfizer series)] Future Scheduled 2022-01-29 65+ PNEUMOCOCCAL [facility] Test 14:07:20 VACCINE (4 - PPSV23 or PCV20) [code = 65+ PNEUMOCOCCAL VACCINE (4 - PPSV23 or PCV20)] Future Scheduled 2022-01-29 INFLUENZA VACCINE [facility] Test 14:07:20 [code = INFLUENZA VACCINE] Future Scheduled 2022-01-29 SHINGLES VACCINES (1 Met [facility] Test 14:07:20 of 2) [code = SHINGLES VACCINES (1 of 2)] Future Scheduled 2022-01-29 BREAST CANCER [facility] Test 14:07:20 SCREENING [code = BREAST CANCER SCREENING] Future Scheduled 2022-01-29 COLONOSCOPY SCREENING [facility] Test 14:07:20 [code = COLONOSCOPY SCREENING] Future Scheduled 2022-01-29 HEPATITIS B VACCINES Met [facility] Test 14:07:20 (1 of 3 - Risk 3-dose series) [code = HEPATITIS B VACCINES (1 of 3 - Risk 3-dose series)] Future Scheduled 2022-01-29 COVID-19 VACCINE (3 - [facility] Test 14:07:20 Booster for Pfizer series) [code = COVID-19 VACCINE (3 - Booster for Pfizer series)] Future Scheduled 2022-01-29 65+ PNEUMOCOCCAL [facility] Test 14:07:20 VACCINE (4 - PPSV23 or PCV20) [code = 65+ PNEUMOCOCCAL VACCINE (4 - PPSV23 or PCV20)] Future Scheduled 2022-01-29 INFLUENZA VACCINE Method [facility] Test 14:07:20 [code = INFLUENZA VACCINE] Future Scheduled 2022-01-29 SHINGLES VACCINES (1 Met [facility] Test 14:07:20 of 2) [code = SHINGLES VACCINES (1 of 2)] Future Scheduled 2022-01-29 BREAST CANCER [facility] Test 14:07:20 SCREENING [code = BREAST CANCER SCREENING] Future Scheduled 2022-01-29 COLONOSCOPY SCREENING [facility] Test 14:07:20 [code = COLONOSCOPY SCREENING] Future Scheduled 2022-01-29 HEPATITIS B VACCINES Met [facility] Test 14:07:20 (1 of 3 - Risk 3-dose series) [code = HEPATITIS B VACCINES (1 of 3 - Risk 3-dose series)] Future Scheduled 2022-01-29 COVID-19 VACCINE (3 - [facility] Test 14:07:20 Booster for Pfizer series) [code = COVID-19 VACCINE (3 - Booster for Pfizer series)] Future Scheduled 2022-01-29 65+ PNEUMOCOCCAL [facility] Test 14:07:20 VACCINE (4 - PPSV23 or PCV20) [code = 65+ PNEUMOCOCCAL VACCINE (4 - PPSV23 or PCV20)] Future Scheduled 2022-01-29 INFLUENZA VACCINE Method [facility] Test 14:07:20 [code = INFLUENZA VACCINE] Future Scheduled 2022-01-20 SHINGLES VACCINES (1 Met [facility] Test 06:12:34 of 2) [code = SHINGLES VACCINES (1 of 2)] Future Scheduled 2022-01-20 Screening for [facility] Test 06:12:34 malignant neoplasm of cervix (procedure) [code = 872726871] Future Scheduled 2022-01-20 BREAST CANCER [facility] Test 06:12:34 SCREENING [code = BREAST CANCER SCREENING] Future Scheduled 2022-01-20 COLONOSCOPY SCREENING [facility] Test 06:12:34 [code = COLONOSCOPY SCREENING] Future Scheduled 2022-01-20 HEPATITIS B VACCINES Met [facility] Test 06:12:34 (1 of 3 - Risk 3-dose series) [code = HEPATITIS B VACCINES (1 of 3 - Risk 3-dose series)] Future Scheduled 2022-01-20 COVID-19 VACCINE (3 - [facility] Test 06:12:34 Booster for Pfizer series) [code = COVID-19 VACCINE (3 - Booster for Pfizer series)] Future Scheduled 2022-01-20 65+ PNEUMOCOCCAL [facility] Test 06:12:34 VACCINE (4 - PPSV23 or PCV20) [code = 65+ PNEUMOCOCCAL VACCINE (4 - PPSV23 or PCV20)] Future Scheduled 2022-01-20 INFLUENZA VACCINE Method [facility] Test 06:12:34 [code = INFLUENZA VACCINE] Future Scheduled 2022-01-16 SHINGLES VACCINES (1 Met [facility] Test 12:09:25 of 2) [code = SHINGLES VACCINES (1 of 2)] Future Scheduled 2022-01-16 Screening for [facility] Test 12:09:25 malignant neoplasm of cervix (procedure) [code = [id number]] Future Scheduled 2022-01-16 BREAST CANCER [facility] Test 12:09:25 SCREENING [code = BREAST CANCER SCREENING] Future Scheduled 2022-01-16 COLONOSCOPY SCREENING [facility] Test 12:09:25 [code = COLONOSCOPY SCREENING] Future Scheduled 2022-01-16 HEPATITIS B VACCINES Met [facility] Test 12:09:25 (1 of 3 - Risk 3-dose series) [code = HEPATITIS B VACCINES (1 of 3 - Risk 3-dose series)] Future Scheduled 2022-01-16 COVID-19 VACCINE (3 - [facility] Test 12:09:25 Booster for Pfizer series) [code = COVID-19 VACCINE (3 - Booster for Pfizer series)] Future Scheduled 2022-01-16 65+ PNEUMOCOCCAL [facility] Test 12:09:25 VACCINE (4 - PPSV23 or PCV20) [code = 65+ PNEUMOCOCCAL VACCINE (4 - PPSV23 or PCV20)] Future Scheduled 2022-01-16 INFLUENZA VACCINE Method [facility] Test 12:09:25 [code = INFLUENZA VACCINE] Future Scheduled 2022-01-14 SHINGLES VACCINES (1 Met [facility] Test 04:11:46 of 2) [code = SHINGLES VACCINES (1 of 2)] Future Scheduled 2022-01-14 Screening for [facility] Test 04:11:46 malignant neoplasm of cervix (procedure) [code = [id number]] Future Scheduled 2022-01-14 BREAST CANCER [facility] Test 04:11:46 SCREENING [code = BREAST CANCER SCREENING] Future Scheduled 2022-01-14 COLONOSCOPY SCREENING [facility] Test 04:11:46 [code = COLONOSCOPY SCREENING] Future Scheduled 2022-01-14 HEPATITIS B VACCINES Met [facility] Test 04:11:46 (1 of 3 - Risk 3-dose series) [code = HEPATITIS B VACCINES (1 of 3 - Risk 3-dose series)] Future Scheduled 2022-01-14 COVID-19 VACCINE (3 - [facility] Test 04:11:46 Booster for Pfizer series) [code = COVID-19 VACCINE (3 - Booster for Pfizer series)] Future Scheduled 2022-01-14 65+ PNEUMOCOCCAL [facility] Test 04:11:46 VACCINE (4 - PPSV23 or PCV20) [code = 65+ PNEUMOCOCCAL VACCINE (4 - PPSV23 or PCV20)] Future Scheduled 2022-01-14 INFLUENZA VACCINE Method [facility] Test 04:11:46 [code = INFLUENZA VACCINE] Future Scheduled 2021-08-26 Screening for [facility] Test 13:02:23 malignant neoplasm of cervix (procedure) [code = [id number]] Future Scheduled 2021-08-26 BREAST CANCER [facility] Test 13:02:23 SCREENING [code = BREAST CANCER SCREENING] Future Scheduled 2021-08-26 COLONOSCOPY SCREENING [facility] Test 13:02:23 [code = COLONOSCOPY SCREENING] Future Scheduled 2021-08-26 Screening for [facility] Test 13:02:23 malignant neoplasm of lung (procedure) [code = [id number]] Future Scheduled 2021-08-26 SHINGLES VACCINES (#1) [facility] Test 13:02:23 [code = SHINGLES VACCINES (#1)] Future Scheduled 2021-08-26 COVID-19 VACCINE (3 - [facility] Test 13:02:23 Pfizer risk 4-dose series) [code = COVID-19 VACCINE (3 - Pfizer risk 4-dose series)] Future Scheduled 2021-08-26 65[facility] VACCINE (4 of 4 - PPSV23) [code = 65+ PNEUMOCOCCAL VACCINE (4 of 4 - PPSV23)] Future Scheduled 2021-08-26 INFLUENZA VACCINE Method [facility] Test 13:02:23 [code = INFLUENZA VACCINE] Encounters Start End Encounter Admission Attending Care Care Encounter Source Date/Time Date/Time Type Type Clinicians Facility Department ID 2022-02-18 Outpatient [place] [id number] [place] 14:30:[address] [place] [address] [facility] 2021-07-14 Outpatient SADIKOVIC, [facility] [id number] [place] 09:33:51 [facility] 2021-06-02 Outpatient HEMATPOUR, [facility] [id number] [place] 13:58:59 [facility] 2021-04-28 Outpatient HEMATPOUR, [facility] [id number] [place] 11:[facility] 2021-03-20 Emergency [facility] [id number] Univers 16:07:40 [facility] 2020-12-12 Outpatient HEMATPOUR, [facility] [id number] [place] 08:16:46 KHASHAYAR Healt 2020-10-31 Outpatient HEMATPOUR, [facility] [id number] [place] 09:44:50 [facility]AYAR Healt h 2020-09-30 Outpatient HEMATPOUR, [facility] [id number] [place] 13:16:03 KHASHAYAR Healt 2022-05-20 2022-05-20 Telephone [place], UNIVERSIT 1.2.840.114 [id number] Univers 00:00:00 00:00:00 [facility] 350.1.13.10 i ty of [id number] [address] [place] 2022-05-10 2022-05-10 Emergency X BYRON, [facility] ERT [id number] Univers 10:30:00 16:31:00 HOME ity [facility] 2022-05-10 2022-05-10 Emergency [place], TRAUMA 1.2.840.114 [id number] Univers 10:30:00 16:31:00 Home B CENTER 350.1.13.10 [place] [id number] [facility] 014 [place] 2022-05-10 2022-05-10 Telephone [facility] 1.2.840.114 [id number] Univers 00:00:00 00:00:00 [facility] 350.1.13.10 i [place] [id number] [address] 2022-05-08 2022-05-08 Emergency X [facility] ERT [id number] Univers 16:18:00 18:42:00 THERESA barbosa [facility] 2022-05-08 2022-05-08 [facility] 1.2.840.114 [id number] Univers 16:18:00 18:42:00 Theresa BULLOCK 350.1.13.10 ity of [place] 4.2.7.2.686 [facility] [place] [id number] [address] 2022-05-07 2022-05-07 Telephone [facility] 1.2.840.114 [id number] Univers 00:00:00 00:00:00 [facility] 350.1.13.10 i [place] [id number] [address] 2022-05-06 2022-05-06 Emergency X [facility] ERT [id number] Univers 14:13:00 18:19:00 ANETTE familia [facility] 2022-05-06 2022-05-06 Emergency [facility] 1.2.341.082 [id number] Univers 14:13:00 18:19:00 Anette BULLOCK 350.1.13.10 ity of [facility] 4.2.[place].2.[place] [id number] [address] 2022-05-06 2022-05-06 Telephone [facility] 1.2.840.114 [id number] Univers 00:00:00 00:00:00 [facility]ALTH 350.1.13.10 i ty [place] [id number] [address] 2022-04-22 2022-04-22 Emergency X ISAAC [facility] ERT [id number] Univers 13:55:00 17:00:00 PAULETTE [facility] 2022-04-22 2022-04-22 Emergency [facility] 1.2.994.944 [id number] Univers 13:55:00 17:00:00 Paulette S [place] 350.1.13.10 i ty [place].2.7.[place] [id number] [address] 2022-04-07 2022-04-07 Outpatient R [facility] [id number] Univers 20:40:00 20:40:00 ATTENDING familia [facility] 2022-04-07 2022-04-07 Telephone Beltran, 1.2.840.7 [id number] Univers 00:00:00 00:00:00 Robbi Hairston 15055.1.1 i ty of 3.104.2.7 [place] .3.792069 Medica l .8 [place] 2022-03-05 2022-03-05 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 Santiago Cardenas 1.2.840.1 [id number] Univers 13:45:00 14:00:00 Visit [facility] 01820.1.1 ity of 3.104.2.7 [place] .3.330456 Medica l .8 [place] 2022-03-05 2022-03-05 Office JOSÉ ANTONIO Cardenas 1.2.267.210 [id number] Univers 13:00:00 13:30:00 Visit [facility] 350.1.13.10 i ty of [facility] 4.2.7.2.[place] [id number] [address] 2022-03-05 2022-03-05 [facility] [id number] Univers 13:00:00 13:00:00 SANTIAGO barbosa [facility] 2022-02-26 2022-02-26 [facility] [id number] Univers 08:30:00 08:30:00 SANTIAGO barbosa [facility] 2022-02-26 2022-02-26 Outpatient R RONALD, [facility] [id number] Univers 08:30:00 08:30:00 SANTIAGO barbosa [facility] 2022-02-17 2022-02-17 Transition Stevo, 1.2.840.0 [id number] Univers 00:00:00 00:00:00 of Care Isaias Arredondo 69494.1.1 it y of 3.104.2.7 [place] .3.191803 Medica l .8 [place] 2022-02-10 2022-02-16 Inpatient X FRANK [facility] FAVIO [id number] Univers 22:59:00 19:27:00 TOMY ity [facility] 2022-02-10 2022-02-16 Hospital Reilly Means 1.2.840.1 [id number] Univers 22:59:00 19:27:00 Encounter Ofe Shields 71282.1.1 ity of [place] 3.104.2.7 [place] .3.312005 Medica l .8 [place] 2022-02-11 2022-02-11 Telephone East, 1.2.840.5 [id number] Univers 00:00:00 00:00:00 Santiago 09182.1.1 ity of 3.104.2.7 [place] .3.444937 Medica l .8 [place] 2022-02-10 2022-02-10 Travel 1.2.840.1 1.2.297.723 [id number] Univers 00:00:00 00:00:00 59259.1.1 350.1.13.10 ity of 3.104.2.7 4.2.7.3.698 [place] .3.851902 084.8 Medica l .8 Branch 2022-01-30 2022-01-30 Telephone East, 1.2.840.8 [id number] Univers 00:00:00 00:00:00 Santiago 45751.1.1 ity of 3.104.2.7 [place] .3.270404 Medica l .8 [place] 2022-01-06 2022-01-06 Orders Doctor FERMIN 1.2.840.114 [id number] Univers 00:00:00 00:00:00 Only Unassigned, JACKELINE 350.1.13.10 [facility]y [facility] 4.2.7.2.686 Y[place] as [id number] [facility] 009 [place] 2021-12-25 2021-12-25 Orders Doctor FERMIN 1.2.840.114 [id number] Univers 00:00:00 00:00:00 Only Unassigned, JACKELINE 350.1.13.10 ity [facility] 4.2.7.2.686 Y[place] as [id number] [facility] 009 [place] 2021-12-12 2021-12-13 Emergency X Bill COLES [facility] ERT [id number] Univers 23:53:00 01:52:00 ity of [facility] 2021-12-12 2021-12-13 Emergency Bill Coles [facility] 1.2.840.114 [id number] Univers 23:53:00 01:52:00 Kiersten BULLOCK 350.1.13.10 i ty of [place] [id number] [facility] 084 [place] 2021-11-20 2021-11-20 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 [facility] UNIVERSIT 1.2.840.114 [id number] Univers 09:45:00 10:00:00 Visit [facility] 350.1.13.10 ity of CL[place]ICS 4.[place] [id number] [facility] 316 [place] 2021-11-20 2021-11-20 Office [facility] 1.2.048.207 [id number] Univers 08:30:00 09:00:00 Visit [facility] 350.1.13.10 i ty of [facility] 4.2.7.2.[place] [id number] [facility] 089 [place] 2021-11-20 2021-11-20 Outpatient R [facility] [id number] Univers 08:30:00 08:30:00 SANTIAGO ity [facility] 2021-11-20 2021-11-20 [facility] [id number] Univers 08:30:00 08:30:00 SANTIAGO charlie [facility] 2021-11-20 2021-11-20 Outpatient R RONALD [facility] [id number] Univers 08:30:00 08:30:00 SANTIAGO charlie [facility] 2021-11-20 2021-11-20 Outpatient R RONALD [facility] [id number] Univers 08:30:00 08:30:00 SANTIAGO [facility] 2021-10-24 2021-10-24 Emergency [facility] ERT [id number] Univers 16:27:00 [facility]:26[facility] 2021-10-24 2021-10-24 Emergency X WALKER [facility] ERT [id number] Univers 16:27:00 22:26:00 CHARITY charlie [facility] 2021-10-24 2021-10-24 Emergency Reilly Means [facility] 1.2.840. 114 [id number] Univers 16:27:00 22:26:00 Char[facility] 350.1.13.10 ity [facility] 4.2.7.2.686 [facility] [id number] [address] 2021-10-23 2021-10-24 Emergency X WALKER, [facility] ERT [id number] Univers 20:22:00 02:57:00 [facility] 2021-10-23 2021-10-24 [facility] 1.2.053.143 [id number] Univers 20:22:00 02:57:00 Charity [facility] 350.1.13.10 ity [facility] 4.2.7.2.686 [facility] [id number] [address] 2021-09-07 2021-09-07 Outpatient R SELF, [facility] [id number] Univers 08:00:00 08:00:00 GADIEL vogel f [facility] 2021-09-07 2021-09-07 Outpatient R SELF, [facility] [id number] Univers 08:00:00 08:00:00 GADIEL macielcharlie o f [facility] 2021-08-21 2021-08-21 Outpatient R [facility] [id number] Univers 10:45:00 10:45:00 SANTIAGO barbosa [facility] 2021-08-21 2021-08-21 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 Santiago Cardenas 1.2.840.1 [id number] Univers 10:45:00 10:45:00 Visit [facility] 49431.1.1 ity of 3.104.2.7 [place] .3.136067 Medica l .8 [place] 2021-08-21 2021-08-21 Office [facility], 1.2.840.2 [id number] Univers 08:30:00 09:00:00 Visit Santiago 43801.1.1 ity of 3.104.2.7 [place] .3.220762 Medica l .8 [place] 2021-08-21 2021-08-21 Office [facility], [facility] 1.2.585.372 [id number] Univers 08:30:00 09:00:00 Visit Santiago [facility] 350.1.13.10 i ty of CLINICS 4[place] [id number] [facility] 089 [place] 2021-08-21 2021-08-21 Outpatient R [facility] [id number] Univers 08:30:00 08:30:00 SANTIAGO barbosa [facility] 2021-08-21 2021-08-21 Travel 1.2.840.1 1.2.226.135 [id number] Univers 00:00:00 00:00:00 75278.1.1 350.1.13.10 ity of 3.104.2.7 4.2.7.3.698 [place] .3.559294 084.8 Medica l .8 [place] 2021-08-14 2021-08-14 Telephone East, 1.2.840.8 [id number] Univers 00:00:00 00:00:00 Santiago 32709.1.1 ity of 3.104.2.7 [place] .3.706432 Medica l .8 Branch 2021-08-13 2021-08-13 Telephone Ronald, 1.2.840.3 [id number] Univers 00:00:00 00:00:00 Santiago 20686.1.1 [facility] 3.104.2.7 [facility]3.002655 Medica l .8 Branch 2021-08-11 2021-08-11 Outpatient [facility] [id number] Univers 08:00:00 08:00:00 [facility] 2021-08-05 2021-08-05 Inpatient RAUL Stonegary, [facility] OUTD [id number] [facility] 05:24:00 05:24:00 Mike 31 [facility] 2021-07-20 2021-07-20 Outpatient [facility] [id number] [facility] 10:00:00 10:00:00 [facility] 2021-07-14 2021-07-14 Office Pankaj, UTP 6400 1.2.840.114 [id number] [place] 08:45:00 09:34:[address] 350.1.13.58 Health 9.2.7.2.686 [id number] 1 2021-07-09 2021-07-09 Telephone Hematpour, UTP 6400 1.2.840.114 [id number] [place] 00:00:00 00:00:[address] 350.1.13.58 Health 9.2.7.2.686 [id number] 1 2021-07-09 2021-07-09 Telephone [facility], UTP 6400 1.2.840.114 [id number] [place] 00:00:00 00:00:[address] 350.1.13.58 Health 9.2.7.2.686 [id number] 1 2021-07-03 2021-07-03 Outpatient [facility] [id number] Univers 08:00:00 08:00:00 [facility] 2021-06-17 2021-06-17 Inpatient RAUL Lund, EDUARDOCL INTE.02 [id number] [facility] 10:56:00 14:36:00 Mike Villeda [facility] 2021-06-15 2021-06-15 Outpatient R SELF, [facility] [id number] Univers 10:15:00 11:07:21 GADIEL rodas [facility] 2021-06-15 2021-06-15 Outpatient R SELF, [facility] [id number] Univers 10:15:00 10:15:00 GADIEL rodas [facility] 2021-06-15 2021-06-15 Outpatient R SELF, [facility] [id number] Univers 10:15:00 10:15:00 GADIEL rodas [facility] 2021-06-15 2021-06-15 Orders Doctor 1.2.840.9 [id number] Univers 00:00:00 00:00:00 Only Unassigned, 22715.1.1 ity of [place] 3.104.2.7 [place] .3.107726 Medica l .8 Branch 2021-06-15 2021-06-15 Travel 1.2.840.1 1.2.354.230 [id number] Univers 00:00:00 00:00:00 39553.1.1 350.1.13.10 ity of 3.104.2.7 4.[place].7.3.698 [place] .3.970464 084.8 Medica l .8 [place] 2021-06-11 2021-06-11 Refill East, UNIVERSIT 1.2.757.986 [id number] Univers 00:00:00 00:00:00 [facility] 350.1.13.10 i ty of CL[place]ICS 4[place] [id number] Medi porfirio 089 Branch 2021-06-11 2021-06-11 Refill East, 1.2.840.8 [id number] Univers 00:00:00 00:00:00 Santiago 64701.1.1 ity of 3.104.2.7 [place] .3.393545 Medica l .8 Branch 2021-06-05 2021-06-05 Outpatient R EAST, [facility] [id number] Univers 09:00:00 09:00:00 SANTIAGO ity of [facility] 2021-06-02 2021-06-02 Telephone East, UNIVERSIT 1.2.840.114 [id number] Univers 00:00:00 00:00:00 Santiago HEALTH 350.1.13.10 i ty of CL[place] 4[place] [id number] [facility] 089 [place] 2021-06-02 2021-06-02 Telephone East, 1.2.840.4 [id number] Univers 00:00:00 00:00:00 Santiago 42727.1.1 ity of 3.104.2.7 [place] .3.123945 Medica l .8 [place] 2021-05-29 2021-05-29 Telephone [facility], 1.2.840.5 [id number] Univers 00:00:00 00:00:00 Santiago 39903.1.1 ity of 3.104.2.7 [place] .3.764525 Medica l .8 [place] 2021-05-29 2021-05-29 Telephone [facility], 1.2.840.1 [id number] Univers 00:00:00 00:00:00 Santiago 48507.1.1 ity of 3.104.2.7 [place] .3.488963 Medica l .8 [place] 2021-05-25 2021-05-25 Outpatient R SELF, [facility] [id number] Univers 08:00:00 08:00:00 GADIEL barbosa o f [facility] 2021-04-29 2021-04-29 Outpatient R LALA, [facility] [id number] Univers 08:00:00 08:00:00 NIKOLAI barbosa [facility] 2021-04-28 2021-04-28 Telephone KIMBERLEY De Souza 6400 1.2.840.114 [id number] [place] 00:00:00 00:00:00 Beverly RUIZ 350.1.13.58 Health 9.2.7.2.686 [id number] 2021-04-28 2021-04-28 Telephone Jailyn, 1.2.840.1 [id number] Methodi 00:00:00 00:00:[address] 3.430.2.7 Hospit a .3.332049 l .8 2021-03-31 2021-03-31 Orders Jillariel, 1.2.840.1 [id number] Methodi 00:00:00 00:00:00 Only Sarai Lieberman 21668.1.1 979 s t 3.430.2.7 Hospit a .3.005012 l .8 2021-03-30 2021-03-30 Outpatient R RODO, [facility] [id number] Univers 08:45:00 08:45:00 GADIEL rodas [facility] 2021-03-24 2021-03-24 Telephone Jailyn, 1.2.840.9 [id number] Methodi 00:00:00 00:00:[address] 3.430.2.7 Hospit a .3.123121 l .8 2021-02-13 2021-02-13 Telephone Ronald, 1.2.840.4 [id number] Univers 00:00:00 00:00:00 [place] 93165.1.1 ity of 3.104.2.7 [place] .3.737476 Medica l .8 [place] 2021-01-28 2021-01-28 Outpatient Marika REEVES [facility] [id number] Univers 08:45:00 09:37:00 NIKOLAI barbosa of [facility] 2021-01-28 2021-01-28 Travel 1.2.840.1 1.2.481.659 [id number] Univers 00:00:00 00:00:00 85747.1.1 350.1.13.10 ity of 3.104.2.[place] 4[place].3.698 [place] .3.023914 084.8 Medica l .8 [place] 2021-01-19 2021-01-19 Telephone Prabhu 1.2.840.1 [id number] [facility] [id number] Methodi 00:00:00 00:00:[address] 3.430.2.7 Hospit a .3.242069 l .8 2021-01-04 2021-01-04 Dmitry Bass, 1.2.840.2 [id number] Univers 00:00:00 00:00:00 (Out) Dagoberto H 09691.1.1 ity of 3.104.2.7 [place] .3.133170 Medica l .8 [place] 2021-01-04 2021-01-04 Dmitry Bass, 1.2.840.8 [id number] 696 Univers 00:00:00 00:00:00 (Out) Dagoberto H 08359.1.1 ity of 3.104.2.7 [place] .3.132181 Medica l .8 Branch 2021-01-03 2021-01-03 Dmitry Bass, 1.2.840.9 [id number] 790 Univers 00:00:00 00:00:00 (Out) Dagoberto H 80350.1.1 ity of 3.104.2.7 [place] .3.078595 Medica l .8 [place] 2021-01-03 2021-01-03 Dmitry Bass, 1.2.840.6 [id number] 790 Univers 00:00:00 00:00:00 (Out) Dagoberto H 64614.1.1 ity of 3.104.2.7 [place] .3.741554 Medica l .8 [place] 2021-01-02 2021-01-02 Outpatient R [facility] [id number] Univers 13:40:00 13:40:00 ity of [facility] 2021-01-02 2021-01-02 Laboratory [place] 1.2.840.6 [id number] Univers 12:14:13 12:57:34 Only Lab[place] [address].1.1 ity of 3.104.2.7 [place] .3.910421 Medica l .8 [place] 2021-01-02 2021-01-02 Laboratory [place] 1.2.840.4 [id number] Univers 12:14:13 12:57:34 Only Lab, [place] 21231.1.1 ity of 3.104.2.7 [place] .3.873019 Medica l .8 Branch 2021-01-02 2021-01-02 Travel 1.2.840.1 1.2.802.466 7648 2306 Univers 00:00:00 00:00:00 91466.1.1 350.1.13.10 ity of 3.104.2.7 4.[place].7.3.698 [place] .3.416070 084.8 Medica l .8 Branch 2021-01-02 2021-01-02 Letter Doctor 1.2.840.4 [id number] 26588 948 Univers 00:00:00 00:00:00 (Out) Unassigned, 33362.1.1 ity of [place] 3.104.2.7 [place] .3.004801 Medica l .8 Branch 2021-01-02 2021-01-02 Letter Doctor 1.2.840.0 [id number] 10508 946 Univers 00:00:00 00:00:00 (Out) Unassigned, 99051.1.1 ity of [place] 3.104.2.7 [place] .3.738386 Medica l .8 Branch 2021-01-02 2021-01-02 Travel 1.2.840.1 1.2.354.716 2470 2306 Univers 00:00:00 00:00:00 76990.1.1 350.1.13.10 ity of 3.104.2.7 4.2.7.3.698 [place] .3.743947 084.8 Medica l .8 Branch 2021-01-02 2021-01-02 Letter Doctor 1.2.840.2 [id number] 02297 948 Univers 00:00:00 00:00:00 (Out) Unassigned, 00478.1.1 ity of [place] 3.104.2.7 [place] .3.610109 Medica l .8 Branch 2021-01-02 2021-01-02 Letter Doctor 1.2.840.1 [id number] 40839 946 Univers 00:00:00 00:00:00 (Out) Unassigned, 14025.1.1 ity of [place] 3.104.2.7 [place] .3.533747 Medica l .8 [place] 2020-12-22 2020-12-22 Telephone Beltran, 1.2.840.1 [id number] 862 52304 Univers 00:00:00 00:00:00 Devina R 68797.1.1 i ty of 3.104.2.7 [place] .3.551585 Medica l .8 [place] 2020-12-22 2020-12-22 Telephone Beltran, 1.2.840.3 [id number] 862 64614 Univers 00:00:00 00:00:00 Devina R 13127.1.1 i ty of 3.104.2.7 [place] .3.174812 Medica l .8 [place] 2020-12-12 2020-12-12 Office Hematpour, UTP 6400 1.2.840.114 12 [id number] [place] 07:42:02 08:18:[address] 350.1.13.58 Health 9.2.7.2.686 710.6212718 1 2020-12-12 2020-12-12 Office Hematpour, UTP 6400 1.2.840.114 12 [id number] 07:42:02 08:18:50 [facility] [facility] 350.1.13.58 9.2.7.2.686 [id number] 1 2020-12-09 2020-12-09 Telephone [facility], 1.2.840.1 [id number] Methodi 00:00:00 00:00:00 Sarai Lieberman 11688.1.1 316 s t 3.430.2.7 Hospit a .3.506696 l .8 2020-12-08 2020-12-08 [facility], 1.2.840.1 [id number] 2100 130254 Methodi 12:35:54 23:59:00 Encounter Ray 22041.1.[address] 3.430.2.7 Hospit a .3.192997 l .8 2020-12-08 2020-12-08 Lab Jailyn, 1.2.840.1 [id number] 96007 24284 Methodi 17:25:00 17:30:[address] 3.430.2.7 Hospit a .3.689910 l .8 2020-12-08 2020-12-08 Office Jailyn, 1.2.840.1 [id number] 84213 13400 Methodi 10:30:00 11:39:56 Visit Ray 52427.1.[address] 3.430.2.7 Hospit a .3.882123 l .8 2020-12-08 2020-12-08 Travel 1.2.840.1 1.2.349.554 5569 737327 Methodi 00:00:00 00:00:[address] 3.430.2.7 0.2.7.3.698 Ho spita .3.524291 084.8 l .8 2020-12-02 2020-12-02 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 [facility] UNIVERSIT 1.2.840.114 8 [id number] 10:20:06 10:36:19 Visit [facility] 350.1.13.10 CLINICS 4.2.7.2.686 [id number] 316 2020-12-02 2020-12-02 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 Santiago Cardenas 1.2.840.1 [id number] [facility] 10:20:06 10:36:19 Visit [facility] 88405.1.1 ity of 3.104.2.7 [place] .3.552058 Medica l .8 Branch 2020-12-02 2020-12-02 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 Santiago Cardenas 1.2.840.1 [id number] [facility] 10:20:06 10:36:19 Visit [facility] 55483.1.1 ity of 3.104.2.7 [place] .3.810600 Medica l .8 [place] 2020-12-02 2020-12-02 Office Ronald, 1.2.840.3 [id number] 07918 528 Univers 08:31:37 09:01:37 Visit Santiago 14928.1.1 ity of 3.104.2.7 [place] .3.257000 Medica l .8 [place] 2020-12-02 2020-12-02 [facility] [id number] 304 Univers 09:00:00 09:00:00 SANTIAGO ity of [facility] 2020-11-25 2020-11-25 [facility] 1.2.840.114 [id number] 11:06:30 11:58:14 Visit Robbi Hairston [employer] 350.1.13.10 REGIONAL 4.2.7.2.686 MATERNAL [id number] & [address] 2020-11-25 2020-11-25 Office Beltran, 1.2.840.8 [id number] 05304 865 Univers 11:06:30 11:58:14 Visit Robbi Marika 43932.1.1 i ty of 3.104.2.7 [place] .3.446514 Medica l .8 [place] 2020-11-25 2020-11-25 Office Devin, 1.2.840.8 [id number] 98793 865 Univers 11:06:30 11:58:14 Visit Robbi Hairston 92144.1.1 i ty of 3.104.2.7 [place] .3.848855 Medica l .8 [place] 2020-11-25 2020-11-25 Outpatient R [facility] [id number] Univers 11:00:00 11:00:00 ity of [facility] 2020-11-25 2020-11-25 Refill FRANCO CardenasIT 1.2.730.767 2302 4592 00:00:00 00:00:00 Santiago [facility] 350.1.13.10 [facility] 4.2.7.2.686 [id number] 089 2020-11-25 2020-11-25 Telephone [facility] 1.2.524.180 0368 0821 00:00:00 00:00:00 Robbi Hairston [employer] 350.1.13.10 [facility] 4.2.7.2.686 MATERNAL [id number] & CHILD [address] [place] [address] 2020-11-25 2020-11-25 Telephone Devin, 1.2.840.2 [id number] 855 48610 Univers 00:00:00 00:00:00 Robbi Hairston 69329.1.1 i ty of 3.104.2.7 [place] .3.024619 Medica l .8 [place] 2020-11-25 2020-11-25 Refill East, 1.2.840.3 [id number] 00658 592 Univers 00:00:00 00:00:00 Santiago 01731.1.1 ity of 3.104.2.7 [place] .3.821366 Medica l .8 [place] 2020-11-25 2020-11-25 Travel 1.2.840.1 1.2.699.250 9418 0247 Univers 00:00:00 00:00:00 59687.1.1 350.1.13.10 ity of 3.104.2.7 4.2.7.3.698 [place] .3.110645 084.8 Medica l .8 [place] 2020-11-25 2020-11-25 Orders Doctor 1.2.840.2 [id number] 064 Univers 00:00:00 00:00:00 Only Unassigned, 27021.1.1 ity of [place] 3.104.2.7 [place] .3.421211 Medica l .8 [place] 2020-11-25 2020-11-25 Telephone Devin, 1.2.840.5 [id number] 855 44668 Univers 00:00:00 00:00:00 Robbi Hairston 91482.1.1 i ty of 3.104.2.7 [place] .3.552927 Medica l .8 [place] 2020-11-25 2020-11-25 Refill East, 1.2.840.2 [id number] 85987 592 Univers 00:00:00 00:00:00 Santiago 83859.1.1 ity of 3.104.2.7 [place] .3.673656 Medica l .8 Branch 2020-11-25 2020-11-25 Travel 1.2.840.1 1.2.209.906 0849 0247 Univers 00:00:00 00:00:00 09101.1.1 350.1.13.10 ity of 3.104.2.7 4.2.7.3.698 [place] .3.993246 084.8 Medica l .8 Branch 2020-11-25 2020-11-25 Orders Doctor 1.2.840.9 [id number] 39612 064 Univers 00:00:00 00:00:00 Only Unassigned, 52635.1.1 ity of [place] 3.104.2.7 [place] .3.822374 Medica l .8 Branch 2020-11-14 2020-11-14 Abstract Clark, 1.2.840.1 [id number] 05710 41639 Methodi 00:00:00 00:00:[address] 3.430.2.7 Hospit a .3.595072 l .8 2020-11-14 2020-11-14 Telephone Clark 1.2.840.1 [id number] 2100 615012 Methodi 00:00:00 00:00:[address] 3.430.2.7 Hospit a .3.578592 l .8 2020-11-12 2020-11-12 Outpatient [facility] [id number] Univers 08:30:00 08:30:00 SANTIAGO ity of [facility] 2020-11-07 2020-11-07 Telephone Agustina Ortiz 6400 1.2.840.11 4 [id number] [place] 00:00:00 00:00:[address] 350.1.13.58 Health 9.2.7.2.686 248.1497855 1 2020-11-07 2020-11-07 Telephone KIMBERLEY Ortiz 6400 1.2.840.114 124 057795 00:00:00 00:00:[address] 350.1.13.58 9.2.7.2.686 393.5062746 1 2020-10-31 2020-10-31 Office Kinjal UTP 6400 1.2.840.114 12 [id number] [place] 07:54:00 09:45:[address] 350.1.13.58 Health 9.2.7.2.686 076.1706961 1 2020-10-30 2020-10-30 Abstract Rody Maguire UTP 6400 1.2.840.1 14 [id number] [place] 00:00:00 00:00:[address] 350.1.13.58 Health 9.2.7.2.686 288.0715640 1 2020-10-29 2020-10-29 Refill East, 1.2.840.2 [id number] 34148 400 Univers 00:00:00 00:00:00 Santiago 62804.1.1 ity of 3.104.2.7 [place] .3.304886 Medica l .8 [place] 2020-10-29 2020-10-29 Refill East, 1.2.840.5 [id number] 91555 400 Univers 00:00:00 00:00:00 Santiago 81456.1.1 ity of 3.104.2.7 [place] .3.359982 Medica l .8 [place] 2020-10-27 2020-10-27 Telephone Jailyn, 1.2.840.4 [id number] 21 [id number] Methodi 00:00:00 00:00:[address] 3.430.2.7 Hospit a .3.872688 l .8 2020-10-24 2020-10-24 Telephone Clark, 1.2.840.1 [id number] 2100 581671 Methodi 00:00:00 00:00:[address] 3.430.2.7 Hospit a .3.627730 l .8 2020-10-22 2020-10-22 Outpatient R SELF, [facility] [id number] Univers 13:00:00 13:00:00 GADIEL rodas [facility] 2020-10-22 2020-10-22 Travel 1.2.840.1 1.2.673.873 5338 3839 [facility] 00:00:00 00:00:00 71580.1.1 350.1.13.10 ity of 3.104.2.7 4.[place].7.3.698 [place] .3.088430 084.8 Medica l .8 [place] 2020-10-22 2020-10-22 Travel 1.2.840.1 1.2.111.469 9398 3839 Univers 00:00:00 00:00:00 41843.1.1 350.1.13.10 ity of 3.104.2.7 4.2.7.3.698 [place] .3.093723 084.8 Medica l .8 [place] 2020-10-13 2020-10-13 [facility] [id number] Univers 08:45:00 08:45:00 GADIEL vogel [facility] 2020-10-06 2020-10-12 Telemedici Cadea, 1.2.840.1 [id number] 21 [id number] Methodi 15:30:00 00:08:46 ne Ray [address]2257.1.[address] 3.430.2.7 Hospit a .3.628711 l .8 2020-09-30 2020-09-30 Telephone Chidimasa, 1.2.840.5 [id number] 21 [id number] Methodi 00:00:00 00:00:[address] 3.430.2.7 Hospit a .3.238975 l .8 2020-09-21 2020-09-21 Travel 1.2.840.1 1.2.828.859 7320 648199 Methodi 00:00:00 00:00:[address] 3.430.2.7 0.2.7.3.698 Ho spita .3.290354 084.8 l .8 2020-09-06 2020-09-06 [facility] 1.2.840.1 [id number] 21454 02541 Methodi 17:42:30 23:59:[address] 3.430.2.7 Hospit a .3.146484 l .8 2020-09-06 2020-09-06 [facility], 1.2.840.1 [id number] 2100 552252 Methodi 16:50:00 17:41:00 Encounter Ray [address]260.1.[address] 3.430.2.7 Hospit a .3.327882 l .8 2020-09-05 2020-09-05 [facility], 1.2.840.1 [id number] 2100 596393 Methodi 09:17:00 19:45:00 Encounter Ray [address]183.1.[address] 3.430.2.7 Hospit a .3.811445 l .8 2020-09-05 2020-09-05 Surgery [facility], 1.2.840.1 [id number] 43529 36973 Methodi 11:30:00 13:15:[address] 3.430.2.7 Hospit a .3.653845 l .8 2020-09-05 2020-09-05 Anesthesia [facility], 1.2.840.1 [id number] 650 [id number] Methodi 11:27:00 12:20:00 Event Lynnettevalentinawathi 91675.1.1 243 s t V. 3.430.2.7 Hospit a .3.679844 l .8 2020-09-05 2020-09-05 Travel 1.2.840.1 1.2.253.873 8480 487061 Methodi 00:00:00 00:00:[address] 3.430.2.7 0.2.7.3.698 Ho spita .3.257542 084.8 l .8 2020-09-04 2020-09-04 Telephone Meisenbach, 1.2.840.1 [id number] Methodi 00:00:00 00:00:00 Sarai Lieberman 12814.1.1 762 s t 3.430.2.7 Hospit a .3.807103 l .8 2020-09-02 2020-09-02 Telephone Carol Ann, 1.2.840.7 [id number] Methodi 00:00:00 00:00:00 Sarai Lieberman 94662.1.1 344 s t 3.430.2.7 Hospit a .3.903489 l .8 2020-08-29 2020-08-30 Bedded Count includes the [facility] [id number] Memoria 10:20:00 14:10:00 Outpatient r [address] 2020-08-29 2020-08-30 Outpatient [facility], [facility] CAR 7500 [facility] 05:20:00 09:10:00 BEVERLY 2020-08-06 2020-08-06 Office East, 1.2.840.4 [id number] [facility] 08:03:23 09:17:49 Visit Santiago 44572.1.1 ity of 3.104.2.7 [place] .3.170688 Medica l .8 [place] 2020-08-06 2020-08-06 Outpatient R [facility] [id number] Univers 08:30:00 08:30:00 SANTIAGO ity [facility] 2020-07-14 2020-07-14 Outpatient R [facility] [id number] Univers 09:30:00 09:30:00 GADIEL ity o f [facility] 2020-07-14 2020-07-14 Travel 1.2.840.1 1.2.146.419 1656 2575 Univers 00:00:00 00:00:00 92902.1.1 350.1.13.10 ity of 3.104.2.7 4.2.7.3.698 [place] .3.610556 084.8 Medica l .8 [place] 2020-07-14 2020-07-14 Orders Doctor 1.2.840.9 [id number] Univers 00:00:00 00:00:00 Only Unassigned, 57227.1.1 ity of [place] 3.104.2.7 [place] .3.273033 Medica l .8 [place] 2020-06-16 2020-06-16 Outpatient R [facility] [id number] Univers 08:00:00 08:00:00 GADIEL barbosa o f [facility] 2020-06-06 2020-06-06 Telephone East, 1.2.840.7 [id number] 809 [id number] Univers 00:00:00 00:00:00 Santiago 15744.1.1 ity of 3.104.2.7 [place] .3.505853 Medica l .8 [place] 2020-06-04 2020-06-04 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 Santiago Cardenas 1.2.840.1 [id number] Univers 09:31:58 09:40:12 Visit [facility] 54858.1.1 ity of 3.104.2.7 [place] .3.642976 Medica l .8 [place] 2020-06-04 2020-06-04 Office East, FRANCOIT 1.2.088.827 4437 9729 Univers 08:13:41 09:28:25 Visit Santiago [facility] 350.1.13.10 i ty of CLINICS 4.2.7.2.[address] [facility] porfirio 089 [place] 2020-06-04 2020-06-04 Outpatient R [facility] [id number] Univers 08:30:00 08:30:00 SANTIAGO barbosa of [facility] 2020-06-04 2020-06-04 Orders Doctor 1.2.840.4 [id number] 079 Univers 00:00:00 00:00:00 Only Unassigned, 49109.1.1 ity of [place] 3.104.2.7 [place] .3.101733 Medica l .8 [place] 2020-05-19 2020-05-19 Telephone East, 1.2.840.4 [id number] 804 45479 Univers 00:00:00 00:00:00 Santiago 19471.1.1 ity of 3.104.2.7 [place] .3.108183 Medica l .8 Branch 2020-04-24 2020-04-24 Telephone East, 1.2.840.8 [id number] 799 [id number] Univers 00:00:00 00:00:00 Santiago 92537.1.1 ity of 3.104.2.7 [place] .3.973299 Medica l .8 Branch 2020-04-14 2020-04-14 Outpatient R [facility], [facility] [id number] Univers 09:00:00 09:00:00 SANTIAGO ity of [facility] 2020-04-14 2020-04-14 Telephone East, 1.2.840.0 [id number] 797 37576 Univers 00:00:00 00:00:00 Santiago 16099.1.1 ity of 3.104.2.7 [place] .3.207547 Medica l .8 [place] 2020-03-31 2020-03-31 Outpatient R EAST, [facility] [id number] Univers 08:30:00 08:30:00 SANTIAGO ity of [facility] 2020-03-03 2020-03-03 Outpatient R SELF, [facility] [id number] Univers 08:00:00 08:00:00 GADIEL barbosa o f [facility] 2020-03-03 2020-03-03 Outpatient R SELF, [facility] [id number] Univers 08:00:00 08:00:00 GADIEL barbosa o f [facility] 2020-03-03 2020-03-03 Travel 1.2.840.1 1.2.785.898 2631 5480 Univers 00:00:00 00:00:00 06873.1.1 350.1.13.10 ity of 3.104.2.7 4.2.7.3.698 [place] .3.011565 084.8 Medica l .8 [place] 2020-02-06 2020-02-06 Telephone East, 1.2.840.6 [id number] 781 34123 Univers 00:00:00 00:00:00 Santiago 34956.1.1 ity of 3.104.2.7 [place] .3.673635 Medica l .8 Branch 2020-01-26 2020-01-26 Emergency Caridad, 1.2.840.8 [id number] 779 94969 Univers 10:03:00 13:05:00 Cynise 46194.1.1 ity of 3.104.2.7 [place] .3.291151 Medica l .8 [place] 2020-01-26 2020-01-26 Travel 1.2.840.1 1.2.576.929 0232 0120 Univers 00:00:00 00:00:00 59671.1.1 350.1.13.10 ity of 3.104.2.7 4.2.7.3.698 [place] .3.868486 084.8 Medica l .8 [place] 2020-01-25 2020-01-25 [facility] [id number] Univers 08:30:00 08:30:00 SANTIAGO ity of [facility] 2020-01-25 2020-01-25 Telemedici [place], 1.2.840.8 [id number] Univers 07:36:49 08:06:49 ne Visit Santiago 04505.1.1 ity of 3.104.2.7 [place] .3.919210 Medica l .8 [place] 2020-01-16 2020-01-16 [facility] [id number] Univers 08:00:00 08:00:00 SANTIAGO ity of [facility] 2020-01-16 2020-01-16 Telephone East, 1.2.840.4 [id number] Univers 00:00:00 00:00:00 Santiago 04233.1.1 ity of 3.104.2.7 [place] .3.910894 Medica l .8 [place] 2020-01-14 2020-01-14 Outpatient R SELF, [facility] [id number] Univers 08:00:00 08:00:00 GADIEL rodas [facility] 2019-12-31 2019-12-31 Outpatient R SELF, [facility] [id number] Univers 08:45:00 08:45:00 GADIEL rodas [facility] 2019-10-17 2019-10-17 Outpatient R [facility], [facility] [id number] Univers 08:30:00 08:30:00 SANTIAGO ity [facility] 2019-10-12 2019-10-12 Outpatient R EAST, [facility] [id number] Univers 13:00:00 13:00:00 SANTIAGO ity [facility] 2019-10-12 2019-10-12 Telemedici [place], 1.2.840.2 [id number] Univers 07:38:30 08:08:30 ne Visit Santiago 39788.1.1 ity of 3.104.2.7 [place] .3.109908 Medica l .8 [place] 2019-10-08 2019-10-08 Outpatient R SELF, [facility] [id number] Univers 10:15:00 10:15:00 GADIEL barbosa o f [facility] 2019-10-03 2019-10-03 Case Xiao, 1.2.840.3 [id number] Univers 00:00:00 00:00:00 Management Michael Corbin 25545.1.1 i ty of 3.104.2.7 [place] .3.993641 Medica l .8 [place] 2019-09-27 2019-09-27 Telephone East, 1.2.840.7 [id number] [id number] Univers 00:00:00 00:00:00 Santiago 23679.1.1 ity of 3.104.2.7 [place] .3.646180 Medica l .8 [place] 2019-09-04 2019-09-04 Refill East, 1.2.840.6 [id number] Univers 00:00:00 00:00:00 Santiago 20093.1.1 ity of 3.104.2.7 [place] .3.235625 Medica l .8 [place] 2019-07-24 2019-07-24 Outpatient R [facility], [facility] [id number] Univers 08:30:00 08:30:00 SANTIAGO ity [facility] 2019-07-17 2019-07-17 Outpatient R [facility]AST, [facility] [id number] Univers 10:00:00 10:00:00 SANTIAGO ity [facility] 2019-06-15 2019-06-15 Telephone East, 1.2.840.6 [id number] [id number] Univers 00:00:00 00:00:00 Santiago 00990.1.1 ity of 3.104.2.7 [place] .3.323091 Medica l .8 [place] 2019-06-13 2019-06-13 Telephone Team, [facility] 1.2.840.5 [id number] Univers 00:00:00 00:00:00 Health 97444.1.1 ity of [place] 3.104.2.7 [place] .3.469166 Medica l .8 Branch 2019-05-10 2019-05-10 Refill Ronald, 1.2.840.0 [id number] 022 Univers 00:00:00 00:00:00 Santiago 40987.1.1 ity of 3.104.2.7 [place] .3.980227 Medica l .8 [place] 2019-05-09 2019-05-09 Refill Ronald, 1.2.840.6 [id number] Univers 00:00:00 00:00:00 Santiago 94974.1.1 ity of 3.104.2.7 [place] .3.277326 Medica l .8 [place] 2019-04-30 2019-04-30 Outpatient R SELF, [facility] [id number] Univers 10:15:00 10:33:05 GADIEL barbosa o f [facility] 2019-04-18 2019-04-18 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 Santiago Cardenas 1.2.840.1 [id number] Univers 10:00:39 10:44:31 Visit [facility] 00768.1.1 ity of 3.104.2.7 [place] .3.898330 Medica l .8 [place] 2019-04-18 2019-04-18 Outpatient R RONALD [facility] [id number] Univers 10:00:00 10:44:31 SANTIAGO ity of [facility] 2019-04-18 2019-04-18 Office Ronald, 1.2.840.4 [id number] 005 Univers 08:27:44 09:53:27 Visit Santiago 60096.1.1 ity of 3.104.2.7 [place] .3.997085 Medica l .8 [place] 2019-04-18 2019-04-18 Orders Doctor 1.2.840.5 [id number] Univers 00:00:00 00:00:00 Only Unassigned, 41921.1.1 ity of [place] 3.104.2.7 [place] .3.355986 Medica l .8 [place] 2019-04-11 2019-04-11 Refill East, 1.2.840.3 [id number] 033 Univers 00:00:00 00:00:00 Santiago 25763.1.1 ity of 3.104.2.7 [place] .3.182698 Medica l .8 [place] 2019-04-09 2019-04-09 Refill East, 1.2.840.8 [id number] Univers 00:00:00 00:00:00 Santiago 76843.1.1 ity of 3.104.2.7 [place] .3.647063 Medica l .8 [place] 2019-04-03 2019-04-03 Telephone Team, [facility] 1.2.840.2 [id number] Univers 00:00:00 00:00:00 Health 93886.1.1 ity of [place].104.2.7 [place] .3.317238 Medica l .8 [place] 2019-03-27 2019-03-27 Telephone Self, 1.2.840.7 [id number] 723 [id number] Univers 00:00:00 00:00:00 Gadiel 09703.1.1 ity of 3.104.2.7 [place] .3.807611 Medica l .8 [place] 2019-01-17 2019-01-17 Office [place], 1.2.840.5 [id number] Univers 07:37:21 10:32:51 Visit Santiago 96869.1.1 ity of 3.104.2.7 [place] .3.715841 Medica l .8 [place] 2019-01-04 2019-01-12 Office Eveline Hansen 1.2.840.9 [id number] Univers 11:19:32 11:08:05 Visit Mariela 46876.1.1 ity of 3.104.2.7 [place] .3.568489 Medica l .8 Branch 2019-01-10 2019-01-10 Telephone Stanislav, 1.2.840.7 [id number] Univers 00:00:00 00:00:00 Eladio Inman 51850.1.1 ity of 3.104.2.7 [place] .3.780847 Medica l .8 Branch 2018-12-18 2018-12-18 Office Alexisryan, 1.2.840.3 [id number] Univers 08:48:45 09:13:43 Visit Leyda 15096.1.1 it y of 3.104.2.7 [place] .3.818251 Medica l .8 Branch 2018-10-30 2018-10-30 Telephone East, 1.2.840.5 [id number] Univers 00:00:00 00:00:00 [place] 05360.1.1 ity of 3.104.2.7 [place] .3.443232 Medica l .8 Branch 2018-10-23 2018-10-23 Orders Doctor 1.2.840.2 [id number] Univers 00:00:00 00:00:00 Only Unassigned, 55725.1.1 ity of [place] 3.104.2.7 [place] .3.415698 Medica l .8 Branch 2018-10-23 2018-10-23 Nurse Selvin, 1.2.840.9 [id number] Univers 00:00:00 00:00:00 Triage Stefanie 33375.1.1 ity of 3.104.2.7 [place] .3.843965 Medica l .8 Branch 2018-10-23 2018-10-23 Telephone Self, 1.2.840.1 [id number] Univers 00:00:00 00:00:00 Gadiel 99360.1.1 ity of 3.104.2.7 [place] .3.185813 Medica l .8 Branch 2018-10-20 2018-10-20 Telephone Self, 1.2.840.9 [id number] Univers 00:00:00 00:00:00 Gadiel 39956.1.1 ity of 3.104.2.7 [place] .3.432062 Medica l .8 Branch Results Test Description Test Time Test Comments Results Result Comments Source COMP. METABOLIC PANEL (17187) 2022-05-06 22:42:55 Test Item Value Reference Range Interpretation Comme nts NA (test code = 5067374194) 137 mmol/L 135-145 K (test code = 2474123497) 3.2 mmol/L 3.5-5.0 L CL (test code = 2195904358) 100 mmol/L 98-108 CO2 TOTAL (test code = 5600718250) 23 mmol/L 23-31 AGAP (test code = 9483356815) 2-16 BUN (test code = 8166528160) 41 mg/dL 7-23 H GLUCOSE (test code = 3070365316) 98 mg/dL 70-110 CREATININE (test code = 1.55 mg/dL 0.50-1.04 H 1445399725) TOTAL BILI (test code = 0.8 mg/dL 0.1-1.8 7767726241) CALCIUM (test code = 8433584799) 8.3 mg/dL 8.6-10.6 L T PROTEIN (test code = 9168413915) 6.9 g/dL 6.3-8.2 ALBUMIN (test code = 2300806050) 3.9 g/dL 3.5-5.0 ALK PHOS (test code = 8124692707) 89 U/L 34-122 ALTv (test code = 1742-6) 101 U/L 5-35 H AST(SGOT) (test code = 7820411483) 203 U/L 13-40 H eGFR (test code = 9817367781) mL/min/1.73m2 KYLE (test code = KYLE) Association [...] tests). Lab Interpretation (test code = Abnormal 86465-0) [facility] WITH [id number] 22:33:52 Test Item Value Reference Range Interpretation Comments WBC (test code = See_Comment L [Automated 6090-2) message] The sy stem which generated this result transmitted reference range : 4.30 - 11.10 10*3/?L. The reference range was not used to interpret this result as normal/abnormal . RBC (test code = See_Comment [Automated 339-8) message] The sy stem which generated this [...] RDW-SD (test code = 46.3 fL 39.0-49.9 31302-2) RDW-CV (test code = 13.5 % 12.0-15.5 788-0) PLT (test code = See_Comment L [Automated 777-3) message] The sy stem which generated this result transmitted reference range : 166 - 358 10*3/ ?L. The reference r abbey was not used to interpret this result as normal/abnormal . MPV (test code = 9.5 fL 9.5-12.9 99289-6) NRBC/100 WBC (test See_Comment [Automat ed code = 3347035109) message] The system which generated this result transmitted reference range : 0.0 - 10.0 /100 WBCs. The refer ence range was not u sed to interpret th is result as normal/abnormal . NRBC x10^3 (test code See_Comment [Auto mated = 4291714144) message] The s ystem which generated this result transmitted reference range : 10*3/?L. The reference range was not used to interpret this result as normal/abnormal . GRAN MAT (NEUT) % 58.3 % (test code = 770-8) IMM GRAN % (test code 0.80 % = 7403205329) LYMPH % (test code = 28.1 % 736-9) MONO % (test code = 12.0 % 5905-5) EOS % (test code = 0.5 % 713-8) BASO % (test code = 0.3 % 706-2) GRAN MAT x10^3(ANC) 2.29 10*3/uL 1.88-7.09 (test code = 0947368710) IMM GRAN x10^3 (test 0.03 10*3/uL 0.00-0.06 code = 2487482530) LYMPH x10^3 (test code 1.10 10*3/uL 1.32-3.29 L = 731-0) MONO x10^3 (test code 0.47 10*3/uL 0.33-0.92 = 742-7) EOS x10^3 (test code = 0.03-0.39 L 711-2) BASO x10^3 (test code 0.01-0.07 = 704-7) Lab Interpretation Abnormal (test code = 92277-1) [facility] METABOLIC PANEL (NA, K, CL, CO2, GLUCOSE, BUN, CREATININE, CA)2022-04-22 21:43:42 Test Item Value Reference Range Interpretation Comments NA (test code = 142 mmol/L 135-145 3134559553) K (test code = 3.5 mmol/L 3.5-5.0 6624079640) CL (test code = 106 mmol/L 98-108 8812581750) CO2 TOTAL (test code = 26 mmol/L 23-31 0913672989) AGAP (test code = 2-16 5487002625) BUN (test code = 29 mg/dL 7-23 H 0979359057) GLUCOSE (test code = 84 mg/dL 70-110 4396385504) CREATININE (test code = 1.16 mg/dL 0.50-1.04 H 7328585790) CALCIUM (test code = 8.2 mg/dL 8.6-10.6 L 7034146173) eGFR (test code = mL/min/1.73m2 6035740261) KYLE (test code = KYLE) Association of [...] tests). Lab Interpretation Abnormal (test code = 67451-1) [facility] WITH [id number] 21:33:01 Test Item Value Reference Range Interpretation [...] (test code = 50.7 fL 39.0-49.9 H 91832-1) RDW-CV (test code = 14.6 % 12.0-15.5 788-0) PLT (test code = See_Comment L [Automated 777-3) message] The sy stem which generated this result transmitted reference range : 166 - 358 10*3/ ?L. The reference r abbey was not used to interpret this result as normal/abnormal . MPV (test code = 8.8 fL 9.5-12.9 L 34608-4) NRBC/100 WBC (test See_Comment [Automat ed code = 4574465982) message] The system which generated this result transmitted reference range : 0.0 - 10.0 /100 WBCs. The refer ence range was not u sed to interpret th is result as normal/abnormal . NRBC x10^3 (test code See_Comment [Auto mated = 0751732421) message] The s ystem which generated this result transmitted reference range : 10*3/?L. The reference range was not used to interpret this result as normal/abnormal . GRAN MAT (NEUT) % 70.9 % (test code = 770-8) IMM GRAN % (test code 0.50 % = 3810123082) LYMPH % (test code = 17.4 % 736-9) MONO % (test code = 9.0 % 5905-5) EOS % (test code = 1.7 % 713-8) BASO % (test code = 0.5 % 706-2) GRAN MAT x10^3(ANC) 4.60 10*3/uL 1.88-7.09 (test code = 1728695311) IMM GRAN x10^3 (test 0.03 10*3/uL 0.00-0.06 code = 7318475022) LYMPH x10^3 (test code 1.13 10*3/uL 1.32-3.29 L = 731-0) MONO x10^3 (test code 0.58 10*3/uL 0.33-0.92 = 742-7) EOS x10^3 (test code = 0.11 10*3/uL 0.03-0.39 711-2) BASO x10^3 (test code 0.03 10*3/uL 0.01-0.07 = 704-7) Lab Interpretation Abnormal (test code = 72341-2) [facility] [id number] 06:01:07 Test Item Value Reference Range Interpretation Comments Blood Culture-Aerobic No organisms No growth Previo us (test code = 59433-3) isolated prelim inary verified result was Culture [...] Culture-Anaerobic isolated preliminar y (test code = 78773-0) verifi ed result was Culture In Progress [...] CDT Lab Interpretation Normal (test code = 60037-4) [facility] CULTURE [id number] 06:01:07 Test Item Value Reference Range Interpretation Comments Blood Culture-Aerobic No organisms No growth Previo us (test code = 23894-7) isolated prelim inary verified result was Culture [...] Culture-Anaerobic isolated preliminar y (test code = 16704-6) verifi ed result was Culture In Progress [...] CDT Lab Interpretation Normal (test code = 60433-7) [facility] CULTURE [id number] 06:01:07 Test Item Value Reference Range Interpretation Comments Blood Culture-Aerobic No organisms No growth Previo us (test code = 39926-5) isolated prelim inary verified result was Culture [...] Culture-Anaerobic isolated preliminar y (test code = 82338-5) verifi ed result was Culture In Progress [...] CDT Lab Interpretation Normal (test code = 82173-9) [facility] [id number] 10:49:10 Test Item Value Reference Range Interpretation Comments NT-proBNP (test code 2660 pg/mL See_Comment H [Autom ated = 7378337920) message] The system which generated this result transmitted reference range : <=125. The reference range was not used to interpret this result as normal/abnormal . KYLE (test code = KYLE) Biotin has been reported to cause a negative bias, interpret results relative to patient's use of biotin. Lab Interpretation Abnormal (test code = 58166-9) [facility] [id number] 10:49:10 Test Item Value Reference Range Interpretation Comments NT-proBNP (test code 2660 pg/mL See_Comment H [Autom ated = 8196410128) message] The system which generated this result transmitted reference range : <=125. The reference range was not used to interpret this result as normal/abnormal . KYLE (test code = KYLE) Biotin has been reported to cause a negative bias, interpret results relative to patient's use of biotin. Lab Interpretation Abnormal (test code = 65185-0) [facility] (NA, K, CL, CO2, GLUCOSE, BUN, CREATININE, CA)2022-02-15 10:44:07 Test Item Value Reference Range Interpretation Comments NA (test code = 134 mmol/L 135-145 L 8555594526) K (test code = 3.2 mmol/L 3.5-5 L 6811491822) CL (test code = 98 mmol/L 98-108 5302644733) CO2 TOTAL (test code = 27 mmol/L 23-31 1713251209) AGAP (test code = 2-16 6759037125) BUN (test code = 19 mg/dL 7-23 5662922194) GLUCOSE (test code = 102 mg/dL 70-110 9746198871) CREATININE (test code = 0.95 mg/dL 0.5-1.04 7907889771) CALCIUM (test code = 8.5 mg/dL 8.6-10.6 L 7676738718) eGFR (test code = mL/min/1.73m2 7682553705) KYLE (test code = KYLE) Association of [...] tests). Lab Interpretation Abnormal (test code = 28345-9) [facility] Test Item Value Reference Range Interpretation Comments MAGNESIUM (test code = 5618461738) 1.8 mg/dL 1.7-2.4 Lab Interpretation (test code = Normal 96770-8) [facility] 10:44:07 Test Item Value Reference Range Interpretation Comments MAGNESIUM (test code = 1556824100) 1.8 mg/dL 1.7-2.4 Lab Interpretation (test code = Normal 51088-1) [facility] (NA, K, CL, CO2, GLUCOSE, BUN, CREATININE, CA)2022-02-15 10:44:07 Test Item Value Reference Range Interpretation Comments NA (test code = 134 mmol/L 135-145 L 0228372409) K (test code = 3.2 mmol/L 3.5-5.0 L 6375087789) CL (test code = 98 mmol/L 98-108 2981401684) CO2 TOTAL (test code = 27 mmol/L 23-31 1852653587) AGAP (test code = 2-16 7087441461) BUN (test code = 19 mg/dL 7-23 8830631108) GLUCOSE (test code = 102 mg/dL 70-110 9925211462) CREATININE (test code = 0.95 mg/dL 0.50-1.04 0409586256) CALCIUM (test code = 8.5 mg/dL 8.6-10.6 L 9430390397) eGFR (test code = mL/min/1.73m2 8296993596) KYLE (test code = KYLE) Association of [...] tests). Lab Interpretation Abnormal (test code = 91476-5) [facility] WITH [id number] 10:12:06 Test Item Value Reference Range Interpretation [...] RDW-SD (test code = 47.8 fL 39-49.9 88433-5) RDW-CV (test code = 15.2 % 12-15.5 788-0) PLT (test code = See_Comment L [Automated 777-3) message] The sy stem which generated this result transmitted reference range : 166 - 358 10*3/ ?L. The reference r abbey was not used to interpret this result as normal/abnormal . MPV (test code = 8.9 fL 9.5-12.9 L 26102-0) NRBC/100 WBC (test See_Comment [Automat ed code = 9479499239) message] The system which generated this result transmitted reference range : 0.0 - 10.0 /100 WBCs. The refer ence range was not u sed to interpret th is result as normal/abnormal . NRBC x10^3 (test code See_Comment [Auto mated = 2481821485) message] The s ystem which generated this result transmitted reference range : 10*3/?L. The reference range was not used to interpret this result as normal/abnormal . GRAN MAT (NEUT) % 65.9 % (test code = 770-8) IMM GRAN % (test code 0.30 % = 1911076045) LYMPH % (test code = 21.0 % 736-9) MONO % (test code = 10.1 % 5905-5) EOS % (test code = 2.4 % 713-8) BASO % (test code = 0.3 % 706-2) GRAN MAT x10^3(ANC) 2.49 10*3/uL 1.88-7.09 (test code = 6669792320) IMM GRAN x10^3 (test 0-0.06 code = 9410159737) LYMPH x10^3 (test code 0.79 10*3/uL 1.32-3.29 L = 731-0) MONO x10^3 (test code 0.38 10*3/uL 0.33-0.92 = 742-7) EOS x10^3 (test code = 0.09 10*3/uL 0.03-0.39 711-2) BASO x10^3 (test code 0.01-0.07 = 704-7) Lab Interpretation Abnormal (test code = 64565-0) [facility] WITH [id number] 10:12:06 Test Item Value Reference Range Interpretation Comments WBC (test code = See_Comment L [Automated 0590-2) message] The sy stem which generated this result transmitted reference range : 4.30 - 11.10 10*3/?L. The reference range was not used to interpret this result as normal/abnormal . RBC (test code = See_Comment L [Automated 139-8) message] The sy stem which generated this [...] RDW-SD (test code = 47.8 fL 39.0-49.9 11299-3) RDW-CV (test code = 15.2 % 12.0-15.5 788-0) PLT (test code = See_Comment L [Automated 777-3) message] The sy stem which generated this result transmitted reference range : 166 - 358 10*3/ ?L. The reference r abbey was not used to interpret this result as normal/abnormal . MPV (test code = 8.9 fL 9.5-12.9 L 77445-8) NRBC/100 WBC (test See_Comment [Automat ed code = 7047014952) message] The system which generated this result transmitted reference range : 0.0 - 10.0 /100 WBCs. The refer ence range was not u sed to interpret th is result as normal/abnormal . NRBC x10^3 (test code See_Comment [Auto mated = 4745749570) message] The s ystem which generated this result transmitted reference range : 10*3/?L. The reference range was not used to interpret this result as normal/abnormal . GRAN MAT (NEUT) % 65.9 % (test code = 770-8) IMM GRAN % (test code 0.30 % = 3908143766) LYMPH % (test code = 21.0 % 736-9) MONO % (test code = 10.1 % 5905-5) EOS % (test code = 2.4 % 713-8) BASO % (test code = 0.3 % 706-2) GRAN MAT x10^3(ANC) 2.49 10*3/uL 1.88-7.09 (test code = 8535817959) IMM GRAN x10^3 (test 0.00-0.06 code = 4315303085) LYMPH x10^3 (test code 0.79 10*3/uL 1.32-3.29 L = 731-0) MONO x10^3 (test code 0.38 10*3/uL 0.33-0.92 = 742-7) EOS x10^3 (test code = 0.09 10*3/uL 0.03-0.39 711-2) BASO x10^3 (test code 0.01-0.07 = 704-7) Lab Interpretation Abnormal (test code = 59758-2) [facility] WITH [id number] 11:18:28 Test Item Value Reference Range Interpretation [...] RDW-SD (test code = 49.5 fL 39-49.9 85993-3) RDW-CV (test code = 15.5 % 12-15.5 788-0) PLT (test code = See_Comment L [Automated 777-3) message] The sy stem which generated this result transmitted reference range : 166 - 358 10*3/ ?L. The reference r abbey was not used to interpret this result as normal/abnormal . MPV (test code = 11.4 fL 9.5-12.9 60741-0) IPF % (test code = 8.7 % 1.3-7.7 H Platelet count 9581947106) measured by fluorescence method. NRBC/100 WBC (test See_Comment [Automat ed code = 2764838892) message] The system which generated this result transmitted reference range : 0.0 - 10.0 /100 WBCs. The refer ence range was not u sed to interpret th is result as normal/abnormal . NRBC x10^3 (test code See_Comment [Auto mated = 0829822076) message] The s ystem which generated this result transmitted reference range : 10*3/?L. The reference range was not used to interpret this result as normal/abnormal . GRAN MAT (NEUT) % 62.0 % (test code = 770-8) IMM GRAN % (test code 0.80 % = 3120135800) LYMPH % (test code = 22.2 % 736-9) MONO % (test code = 9.6 % 5905-5) EOS % (test code = 5.1 % 713-8) BASO % (test code = 0.3 % 706-2) GRAN MAT x10^3(ANC) 2.21 10*3/uL 1.88-7.09 (test code = 2443666660) IMM GRAN x10^3 (test 0.03 10*3/uL 0-0.06 code = 3663689413) LYMPH x10^3 (test code 0.79 10*3/uL 1.32-3.29 L = 731-0) MONO x10^3 (test code 0.34 10*3/uL 0.33-0.92 = 742-7) EOS x10^3 (test code = 0.18 10*3/uL 0.03-0.39 711-2) BASO x10^3 (test code 0.01-0.07 = 704-7) POLYCHROMASIA (test 2+ See_Comment [Automa arpit code = 94696-7) message] The system which generated this result [...] . Lab Interpretation Abnormal (test code = 53658-9) [facility] METABOLIC PANEL (NA, K, CL, CO2, GLUCOSE, BUN, CREATININE, CA)2022-02-13 10:39:07 Test Item Value Reference Range Interpretation Comments NA (test code = 136 mmol/L 135-145 4437436981) K (test code = 4.1 mmol/L 3.5-5 6162894769) CL (test code = 102 mmol/L 98-108 7445507260) CO2 TOTAL (test code = 27 mmol/L 23-31 5511057902) AGAP (test code = 2-16 4598126294) BUN (test code = 22 mg/dL 7-23 5428809146) GLUCOSE (test code = 94 mg/dL 70-110 9323464920) CREATININE (test code = 0.94 mg/dL 0.5-1.04 5764110394) CALCIUM (test code = 8.1 mg/dL 8.6-10.6 L 5597598403) eGFR (test code = mL/min/1.73m2 4481093997) KYLE (test code = KYLE) Association of [...] tests). Lab Interpretation Abnormal (test code = 11501-9) [facility] 01:50:10 Test Item Value Reference Range Interpretation Comments Height (test code = in 0607678151) Weight (test code = lbs 7088017469) Systolic BP (test code mmHg = 1894030553) Diastolic BP (test code mmHg = 8099108564) Heart Rate (test code = bpm 6172923549) BSA (test code = 1.85 m2 8125898552) IVS (test code = 1.22 cm 3632237404) Interventricular Septum 1.22 cm Diastolic Thickness by 2D (test code = 9854148) LVIDD (test code = 5.00 cm 4921704352) Left Ventricular End 117.9 mL Diastolic Volume by Teichholz Method (test code = 4531977) LVPWD (test code = 1.22 cm 9012641574) PW (test code = 1.22 cm 0.6-1.5 1553875505) EF(Teich) (test code = 74.60 % 2344141055) LVIDS (test code = 2.80 cm 7652442726) Left Ventricular End 29.9 mL Systolic Volume by Teichholz Method (test code = 8116533) FS (test code = 44 % 0398464160) EF - 2D (test code = 74.60 % 54911877) LVOT diameter (test 2.16 cm code = 1154205096) LVOT area (test code = 3.70 cm2 7155722579) Ao root diam (test code 3.40 cm = 1282473704) Aortic root (test code 3.4 cm = 3808343639) Ao root annulus (test 3.4 cm code = 8199995790) LA size (test code = 3.4 cm 6312342627) TR Peak Spencer (test code 330.0 cm/s = 6725516424) Triscuspid Valve mmHg Regurgitation Peak Gradient (test code = 5063607159) PV REGURGITATION PEAK mmHg GRADIENT (test code = 9534176373) PI dec slope (test code 137.20 cm/s2 = 6260088238) LAV(MOD-sp4) (test code 102.90 mL = 0966771413) MV Peak E Spencer (test 84.1 cm/s code = 4990018186) MV Peak A Spencer (test 40.1 cm/s code = 9570024179) E/A ratio (test code = ratio 9302928332) MV valve area p 1/2 3.70 cm2 method (test code = 7175220626) MV dec slope (test code 413.00 cm/s2 = 1676308717) MV P1/2t max spencer (test 83.70 cm/s code = 4623147158) MV Prop V (test code = 41.80 cm/s 7195996295) Tapse (test code = 1.83 cm 6002742272) LVOT stroke volume 96.90 cm3 (test code = 6397082280) LVOT peak spencer (test 125.5 cm/s code = 4889719855) LVOT mn grad (test code mmHg = 5478860911) AV LVOT peak gradient mmHg (test code = 0536689832) LVOT peak VTI (test 26.4 cm code = 4334891601) LV V1 mean (test code = 78.10 cm/s 6825829511) Aortic valve mean 103.7 cm/s velocity (test code = 2548775501) Ao peak spencer (test code 165.6 cm/s = 9251665074) Ao VTI (test code = 37.2 cm 4861507274) AV area by cont VTI 2.6 cm2 (test code = 2252412631) AV area peak spencer (test 2.8 cm2 code = 4372217034) Ao max PG (test code = 11.00 mm[Hg] 9563337462) AV peak gradient (test mmHg code = 3752037850) AV valve area (test 2.60 cm2 code = 3710183540) AV mean gradient (test mmHg code = 2024454608) LA Volume Index (BP) 55.2 mL/m2 (test code = 0713849206) LA volume (BP) (test 102.1 mL code = 9756433735) LAV(MOD-sp2) (test code 86.10 mL = 5297458117) A2C EF (test code = 61.20 % 7166786847) EF(sp2-el) (test code = 61.60 % 2716638096) SV(MOD-sp2) (test code 47.10 mL = 0267173692) LV Diastolic Volume 70.7 mL (BP) (test code = 4080880841) A4C EF (test code = 53.00 % 7827065792) EF(MOD-bp) (test code = 56.70 % 0425021026) EF(sp4-el) (test code = 53.90 % 6400254584) LV Systolic Volume (BP) 30.6 mL (test code = 9914659000) SV(MOD-bp) (test code = 40.10 mL 1304629572) SV(MOD-sp4) (test code 32.40 mL = 1001773833) SV(sp4-el) (test code = 33.10 mL 7405855402) EF (test code = 4104962018) Left Ventricular Stroke 40.1 mL Volume by 2-D Biplane-MOD (test code = 2032385) LV Diastolic Volume 38.2 mL/m2 Index (BP) (test code = 7543216716) LV Systolic Volume 16.5 mL/m2 Index (BP) (test code = 7393491740) Radiology Study observation (narrative) (test code = 17315-2) KYLE (test code = KYLE) ?Left?Ventricle: Left [...] 1.00The left ventricular wall motion is normal. [facility] [id number] 05:45:01 Test Item Value Reference Interpretation Comments Range TROPONIN I (test See_Comment [Automated code = 4208709847) message] The system which generated this result [...] biotin. Lab Interpretation Normal (test code = 27770-4) [facility] [id number] 05:41:40 Test Item Value Reference Range Interpretation Comments NT-proBNP (test code 4250 pg/mL See_Comment H [Autom ated = 1997135877) message] The system which generated this result transmitted reference range : <=125. The reference range was not used to interpret this result as normal/abnormal . KYLE (test code = KYLE) Biotin has been reported to cause a negative bias, interpret results relative to patient's use of biotin. Lab Interpretation Abnormal (test code = 66501-5) [facility] [id number] 05:35:21 Test Item Value Reference Range Interpretation [...] seconds. Lab Interpretation Normal (test code = 62240-3) [facility] [id number] 05:35:21 Test Item Value Reference Range Interpretation [...] seconds. Lab Interpretation Normal (test code = 81972-9) [facility] / [id number] 05:33:21 Test Item Value Reference Range Interpretation Comments PROTIME PATIENT (test See_Comment [Auto mated message] code = 5964-2) The system Ansible generated this result transmitted ref erence range: 12.0 - 1 4.7 Seconds. The re ference range was not u sed to interpret this result as normal/abnor mal. INR (test code = 6301-6) Nor mal INR <1.1; Warfarin Therap eutic range 2.0 to 3. 0 or 2.5 to 3.5, dep ending upon the indica tions. Lab Interpretation (test Normal code = 31171-1) [facility] METABOLIC PANEL (63894)2022-02-11 05:33:21 Test Item Value Reference Range Interpretation Comments NA (test code = 137 mmol/L 135-145 5283976686) K (test code = 4.3 mmol/L 3.5-5 5280965128) CL (test code = 103 mmol/L 98-108 4874204702) CO2 TOTAL (test code = 25 mmol/L 23-31 5063768390) AGAP (test code = 2-16 5545719418) BUN (test code = 19 mg/dL 7-23 0135612161) GLUCOSE (test code = 120 mg/dL 70-110 H 5617837851) CREATININE (test code = 1.15 mg/dL 0.5-1.04 H 2345459226) TOTAL BILI (test code = 0.9 mg/dL 0.1-1.9 7030731583) CALCIUM (test code = 8.9 mg/dL 8.6-10.6 1736827701) T PROTEIN (test code = 6.6 g/dL 6.3-8.2 5173342095) ALBUMIN (test code = 4.0 g/dL 3.5-5 5529196370) ALK PHOS (test code = 73 U/L 34-122 8873421399) ALTv (test code = 18 U/L 5-35 1742-6) AST(SGOT) (test code = 31 U/L 13-40 6306796956) eGFR (test code = mL/min/1.73m2 8887789433) KYLE (test code = KYLE) Association of [...] tests). Lab Interpretation Abnormal (test code = 42631-9) [facility] METABOLIC PANEL (21033)2022-02-11 05:33:21 Test Item Value Reference Range Interpretation Comments NA (test code = 137 mmol/L 135-145 5276952362) K (test code = 4.3 mmol/L 3.5-5.0 5023802794) CL (test code = 103 mmol/L 98-108 4177622082) CO2 TOTAL (test code = 25 mmol/L 23-31 8795548729) AGAP (test code = 2-16 5714922742) BUN (test code = 19 mg/dL 7-23 2008714810) GLUCOSE (test code = 120 mg/dL 70-110 H 4705668258) CREATININE (test code = 1.15 mg/dL 0.50-1.04 H 8083589872) TOTAL BILI (test code = 0.9 mg/dL 0.1-1.8 8139706063) CALCIUM (test code = 8.9 mg/dL 8.6-10.6 0980818255) T PROTEIN (test code = 6.6 g/dL 6.3-8.2 7988111239) ALBUMIN (test code = 4.0 g/dL 3.5-5.0 6228879674) ALK PHOS (test code = 73 U/L 34-122 1851660677) ALTv (test code = 18 U/L 5-35 1742-6) AST(SGOT) (test code = 31 U/L 13-40 2055443526) eGFR (test code = mL/min/1.73m2 7193887138) KYLE (test code = KYLE) Association of [...] tests). Lab Interpretation Abnormal (test code = 15971-7) [facility] / [id number] 05:33:21 Test Item Value Reference Range Interpretation [...] tions. Lab Interpretation (test Normal code = 32804-8) [facility] WITH [id number] 05:14:37 Test Item Value Reference Range Interpretation [...] RDW-SD (test code = 47.9 fL 39-49.9 73159-4) RDW-CV (test code = 14.9 % 12-15.5 788-0) PLT (test code = See_Comment L [Automated 777-3) message] The sy stem which generated this result transmitted reference range : 166 - 358 10*3/ ?L. The reference r abbey was not used to interpret this result as normal/abnormal . MPV (test code = 9.1 fL 9.5-12.9 L 71277-1) NRBC/100 WBC (test See_Comment [Automat ed code = 5859260487) message] The system which generated this result transmitted reference range : 0.0 - 10.0 /100 WBCs. The refer ence range was not u sed to interpret th is result as normal/abnormal . NRBC x10^3 (test code See_Comment [Auto mated = 0971989406) message] The s ystem which generated this result transmitted reference range : 10*3/?L. The reference range was not used to interpret this result as normal/abnormal . GRAN MAT (NEUT) % 78.5 % (test code = 770-8) IMM GRAN % (test code 0.20 % = 9426392433) LYMPH % (test code = 11.6 % 736-9) MONO % (test code = 8.4 % 5905-5) EOS % (test code = 1.1 % 713-8) BASO % (test code = 0.2 % 706-2) GRAN MAT x10^3(ANC) 3.45 10*3/uL 1.88-7.09 (test code = 4617801774) IMM GRAN x10^3 (test 0-0.06 code = 1927970821) LYMPH x10^3 (test code 0.51 10*3/uL 1.32-3.29 L = 731-0) MONO x10^3 (test code 0.37 10*3/uL 0.33-0.92 = 742-7) EOS x10^3 (test code = 0.05 10*3/uL 0.03-0.39 711-2) BASO x10^3 (test code 0.01-0.07 = 704-7) Lab Interpretation Abnormal (test code = 23886-1) [facility] Coronavirus 2019 [id number] 18:08:00 Test Item Value Reference Range Interpretation [...] det ection of nucleic acids f rom xfzHEAJ-JeN-2 v irus and diagnosis of SA RS-CoV-2 virusinfection. It is an Emergency Use Authorization ( EUA) testauthorized by the U.[place]. FDA. BASIC METABOLIC [id number] 09:37:00 Test Item Value Reference Range Interpretation [...] = 9.0 mg/dL 8.0-10.5 N CA) PROTHROMBIN [id number] 09:32:00 Test Item Value Reference Range Interpretation [...] (to prevent recurrent infar ct). 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 BASIC METABOLIC [id number] 11:37:00 Test Item Value Reference Range Interpretation [...] code = 9.0 mg/dL 8.0-10.5 N CA) [id number] 11:37:00 Test Item Value Reference Range Interpretation Comments PREALBUMIN (test code = PREALB) 24.3 mg/dL 16.0-40.0 N PROTHROMBIN [id number] 11:03:00 Test Item Value Reference Range Interpretation [...] (to prevent recurrent infar ct). CBC W/AUTO RUQP8136-50-19 10:59:00 Test Item Value Reference Range Interpretation [...] 0.0-0.1 N NRBC#) - XR CHEST 2 [id number] 00:00:00 [facility] [place]: [place] : 1955 Sex: F FAX: Carmenza Kelly DO [phone] [place]: St: PRE FAX: Y Mike Lund MD [phone] Name: LIO WATTS [facility] [place] : 1955 Age/S: 66/F [address] [place] [address] Unit #: [id number] Loc: [place] [address] Phys: Mike Lund MD Acct: [id number] Dis Date: Status: PRE [facility] [place] PHONE #: [phone] Exam Date: 06/16/2021 1120 FAX #: [phone] Reason: PREOP EXAMS: CPT CODE: [id number] XR CHEST 2 V 13502 PROCEDURE INFORMATION: Exam: XR Chest Exam date [...] By: [email or web address] Orig Print D/T: S: 06/16/2021 (1083) PAGE 1 Signed ReportGastrointestinal zyine4286-40-07 04:35:05 Test Item Value Reference Interpretation Comments [...] Rotavirus PCR (test Not Detected code = 0186051) Salmonella PCR (test Not Detected code = [...] Detected (test code = 7124) [facility] wjesalf7784-13-56 19:30:47 Test Item Value Reference Range Interpretation Comments Case number (test [id number] code = 6299898) Surgical pathology See link below for PDF report (test code = Lab Report 2255) Result status (test This is Supplemental code = 1290279) Report for [id number] [facility]2021-04-09 16:31:00 Test Item Value Reference Range Interpretation Comments POC Activated Clotting Time (test code 153 s = POC Activated Clotting Time) [facility]909[facility] 16:31:00 Test Item Value Reference Range Interpretation Comments POC Activated Clotting Time (test code 153 s = POC Activated Clotting Time) [facility]YhxrsmtETZUVVPLGV6511-12-32 16:31:00 Test Item Value Reference Range Interpretation Comments POC Activated Clotting Time (test code 153 s = POC Activated Clotting Time) [facility]WtaknnmAYETODHTOU1627-20-02 16:31:00 Test Item Value Reference Range Interpretation Comments POC Activated Clotting Time (test code 153 s = POC Activated Clotting Time) [facility] HospitalWnyzujjKGIAHNKTBD8971-51-30 16:31:00 Test Item Value Reference Range Interpretation Comments POC Activated Clotting Time (test code 153 s = POC Activated Clotting Time) [facility] HospitalSshygyjQNZUEIGWVN6938-60-60 16:31:00 Test Item Value Reference Range Interpretation Comments POC Activated Clotting Time (test code 153 s = POC Activated Clotting Time) [facility] HospitalDowhofcUTHFRQPAOK4363-15-51 16:31:00 Test Item Value Reference Range Interpretation Comments POC Activated Clotting Time (test code 153 s = POC Activated Clotting Time) [facility] HospitalEdfxlxcQGOCJGWNAW0232-07-39 14:37:00 Test Item Value Reference Range Interpretation Comments POC Activated Clotting Time (test code 454 s = POC Activated Clotting Time) [facility] HospitalHalqnzzCCDCAFSVRJ8545-02-59 14:37:00 Test Item Value Reference Range Interpretation Comments POC Activated Clotting Time (test code 454 s = POC Activated Clotting Time) [facility] HospitalZfmqsmwFLDBGGZLEN3867-34-30 14:37:00 Test Item Value Reference Range Interpretation Comments POC Activated Clotting Time (test code 454 s = POC Activated Clotting Time) [facility] HospitalVovbdciYNMNXSSCVV4835-58-33 14:37:00 Test Item Value Reference Range Interpretation Comments POC Activated Clotting Time (test code 454 s = POC Activated Clotting Time) [place] 869191-04-09 14:37:00 Test Item Value Reference Range Interpretation Comments POC Activated Clotting Time (test code 454 s = POC Activated Clotting Time) [facility] HospitalLttdsveNNHFFBCDXJ1203-88-19 14:37:00 Test Item Value Reference Range Interpretation Comments POC Activated Clotting Time (test code 454 s = POC Activated Clotting Time) [facility] HospitalWsaehqhQNULQGDWHF5025-55-59 14:37:00 Test Item Value Reference Range Interpretation Comments POC Activated Clotting Time (test code 454 s = POC Activated Clotting Time) [facility] HospitalZenkjxkCZFXFLSTZX3555-51-16 14:13:00 Test Item Value Reference Range Interpretation Comments POC Activated Clotting Time (test code 354 s = POC Activated Clotting Time) [facility] HospitalWeejisxCGTITYKXUY4705-52-00 14:13:00 Test Item Value Reference Range Interpretation Comments POC Activated Clotting Time (test code 354 s = POC Activated Clotting Time) [facility] HospitalZhaijvqHVRCQMAVEM5431-51-51 14:13:00 Test Item Value Reference Range Interpretation Comments POC Activated Clotting Time (test code 354 s = POC Activated Clotting Time) [facility] HospitalZzajqwgLPKZMPJEMZ7469-87-61 14:13:00 Test Item Value Reference Range Interpretation Comments POC Activated Clotting Time (test code 354 s = POC Activated Clotting Time) [facility] HospitalQeosyycJCODIPMNBR7899-37-23 14:13:00 Test Item Value Reference Range Interpretation Comments POC Activated Clotting Time (test code 354 s = POC Activated Clotting Time) [facility] HospitalTfqleblUBNVYBLKAZ0377-16-93 14:13:00 Test Item Value Reference Range Interpretation Comments POC Activated Clotting Time (test code 354 s = POC Activated Clotting Time) [facility] HospitalNipvhdjTXFQXPWCGO9836-78-29 14:13:00 Test Item Value Reference Range Interpretation Comments POC Activated Clotting Time (test code 354 s = POC Activated Clotting Time) [facility] QLKUOHH5672-87-85 10:37:00Negative (08/29/20 5:37 AM) [facility] UTHZH7480-08-69 10:37:88468Nfpztwuu HermannCHEM PANEL 2020-08-29 10:37:0028[facility] HermannCHEM HBIMM0105-37-83 10:37:001.01[facility] HermannCHEM LXYUS9842-03-50 10:37:34453Sbqftami HermannCHEM KFUZR0683-01-00 10:37:003.8[facility] HermannCHEM IATGI1156-77-60 10:37:86047Phkhxpva HermannCHEM ONVJS8918-55-07 10:37:0028[facility] HermannCHEM TVHSJ4491-91-91 10:37:009.8 [facility] HermannCHEM NLSFZ4823-80-12 10:37:0011.8[facility] HermannCHEM PANEL 2020-08-29 10:37:0059[facility] HermannCHEM NCQLL0309-23-63 10:37:002.9[facility] OnmtozxKPSBOYMXYL7323-47-81 10:37:006.8[facility] UnzirbvPIDWUZXJTF0552-26-66 10:37:004.47[facility] BjaqjprONDMDCAREZ6339-61-45 10:37:0010.6[facility] BJWXCWGFCN8882-38-70 10:37:0034.0[facility] IddvynnJKONPKSXDA1395-27-22 10:37:00 76.1[facility] BeglnqmLYTLGJGIFS6117-90-52 10:37:00 Test Item Value Reference Range Interpretation Comments MCH (test code = MCH) 23.8 pg 27.0-31.0 [facility] InjwjqqJWFCNIRTSY4266-03-04 10:37:0031.3[facility] HermannHEMATOLOGY 2020-08-29 10:37:0018.2[facility] XynzmpcGTFTLSDWGX6102-87-85 10:37:13444Etntntvx YvgeeyaLRLYANNLQX3579-01-90 10:37:007.5[facility] FrpfxndSIKOOMJVNK8581-09-08 10:37:00 Test Item Value Reference Range Interpretation Comments PT (test code = PT) 12.8 s 12.0-14.7 [facility] FmontkiDQIKZFRPSP5532-06-44 10:37:00 Test Item Value Reference Range Interpretation Comments INR (test code = INR) 0.97 1 0.85-1.17 [facility] FubhhgaZYWBNGNNAL2937-82-48 10:37:00 Test Item Value Reference Range Interpretation Comments PTT (test code = PTT) 25.0 s 22.9-35.8 [facility] YpwlphsURJHXXULUT5456-83-00 10:37:0070.5[facility] HermannHEMATOLOGY 2020-08-29 10:37:0018.8[facility] LycegpvOBGSNOWMZJ4968-29-35 10:37:009.5[facility] BjbhgfmTDSFQUWSNJ5456-01-25 10:37:000.9[facility] SmspbcvJWDZGESKPR6539-53-69 10:37:000.3[facility] PxudrgwQKHONTWFLH7164-92-62 10:37:004.8[facility] Maybeury KQGCGFDLXG2388-16-63 10:37:001.3[facility] ZarvrthRWHJQREDAI6288-30-95 10:37:000.6 [facility] UbzbnttVJPFWQTNVV7127-31-64 10:37:000.1[facility] HermannHEMATOLOGY 2020-08-29 10:37:001+ *ABN*(08/29/20 5:37 AM)[facility] IjvomqwGRIHVPSBHE1227-91-76 10:37:00Not Detected (08/29/20 5:37 AM)[facility] HermannBLOOD BANK RESULTS 2020-08-29 10:37:00Negative (08/29/20 5:37 AM)[facility] HermannCHEM TJLHK6310-78-36 10:37:80643Aooffsrc HermannCHEM VZKZW9393-08-22 10:37:0028[facility] HermannCHEM ZBCVW7699-46-53 10:37:001.01[facility] HermannCHEM FGBKD9790-47-97 10:37:92955 [facility] HermannCHEM XHAFP1749-96-38 10:37:003.8[facility] HermannCHEM PANEL 2020-08-29 10:37:57721Psjnotig HermannCHEM VTUMA3969-30-11 10:37:0028[facility] HermannCHEM YORVE3447-47-75 10:37:009.8[facility] HermannCHEM ZBVDR2619-72-72 10:37:0011.8[facility] HermannCHEM SVFLQ6534-23-50 10:37:0059[facility] HermannCHEM KPXYW0823-00-75 10:37:002.9[facility] YqvzywuZVNCTINOIT5459-55-82 10:37:006.8 [facility] FuhwvekHSKEBLHSJM6320-22-08 10:37:004.47[facility] HermannHEMATOLOGY 2020-08-29 10:37:0010.6[facility] VxqauzfNFZSQBBCEB1910-26-05 10:37:0034.0[facility] TkznrbhKCPTUADJRK6115-72-78 10:37:0076.1[facility] BtliyneYTIMAKJPMG4488-36-66 10:37:00 Test Item Value Reference Range Interpretation Comments MCH (test code = MCH) 23.8 pg 27.0-31.0 [facility] CyvomdeDTYUEXCNDO3575-65-17 10:37:0031.3[facility] HermannHEMATOLOGY 2020-08-29 10:37:0018.2[facility] QrvcxelHAKPDVAOKB5433-45-47 10:37:79795Kjonfnzq StjbyhaGIFERMVNJN3403-12-31 10:37:007.5[facility] QwtmwwrYAGGQDSGUI0722-94-91 10:37:00 Test Item Value Reference Range Interpretation Comments PT (test code = PT) 12.8 s 12.0-14.7 [facility] CofhnbwQAVZIZMTJF0006-75-75 10:37:00 Test Item Value Reference Range Interpretation Comments INR (test code = INR) 0.97 1 0.85-1.17 [facility] XdceagkYQSUNUBHUX0442-12-63 10:37:00 Test Item Value Reference Range Interpretation Comments PTT (test code = PTT) 25.0 s 22.9-35.8 [facility] OjhsgteARDWIGFKYY6842-96-65 10:37:0070.5[facility] HermannHEMATOLOGY 2020-08-29 10:37:0018.8[facility] ZupgdrfZLKWEEHWXO7218-76-58 10:37:009.5[facility] AovzwimEUFNEZVJDO6986-35-74 10:37:000.9[facility] EzkgjdwDPYSCXVIDV6011-44-76 10:37:000.3[facility] VesveblDRYBXWAUFO4058-95-11 10:37:004.8[facility] RGEQLCKVGK4134-92-75 10:37:001.3[facility] QkejuifQDTTHLWIET2276-82-62 10:37:000.6 [facility] VbtzlvvGOZVRVHHYN1789-90-54 10:37:000.1[facility] HermannHEMATOLOGY 2020-08-29 10:37:001+ *ABN*(08/29/20 5:37 AM)[facility] YwxiunnUSIOWQSPYW9345-96-95 10:37:00Not Detected (08/29/20 5:37 AM)[facility] HermannBLOOD BANK RESULTS 2020-08-29 10:37:00Negative (08/29/20 5:37 AM)[facility] HermannCHEM UYCTY8084-57-53 10:37:94032Dclpuijh HermannCHEM MHNCE9902-82-83 10:37:0028[facility] HermannCHEM FIAFE7729-11-27 10:37:001.01[facility] HermannCHEM XKXYX0367-58-55 10:37:45480 [facility] HermannCHEM SQKBM7700-02-91 10:37:003.8[facility] HermannCHEM PANEL 2020-08-29 10:37:05274Nqadpyet HermannCHEM RKTKC7905-39-55 10:37:0028[facility] HermannCHEM FRJTX5912-59-92 10:37:009.8[facility] HermannCHEM SHOSB3153-71-06 10:37:0011.8[facility] HermannCHEM CEVNT4690-57-38 10:37:0059[facility] HermannCHEM GZUGJ9637-98-74 10:37:002.9[facility] TmjsopbLHUIYEFYRZ2264-39-22 10:37:006.8 [facility] IcrlwlaCYTAJEXOHA3128-01-35 10:37:004.47[facility] HermannHEMATOLOGY 2020-08-29 10:37:0010.6[facility] MiahnpyDXRESPDJAF7817-22-21 10:37:0034.0[facility] SieugcmXGJLFRTPAE9177-72-92 10:37:0076.1[facility] NrbgomdQBKTOGCKKR5828-65-90 10:37:00 Test Item Value Reference Range Interpretation Comments MCH (test code = MCH) 23.8 pg 27.0-31.0 [facility] AgayaqxDKLVXHSTJV8841-60-44 10:37:0031.3[facility] HermannHEMATOLOGY 2020-08-29 10:37:0018.2[facility] BwahcxfJPTQREMBMR6310-95-15 10:37:13696Ewscfxxn GdgkhgfBHXNYAZMZA4115-81-02 10:37:007.5[facility] JqlovdhEPKOUFKWGQ0284-77-56 10:37:00 Test Item Value Reference Range Interpretation Comments PT (test code = PT) 12.8 s 12.0-14.7 [facility] MvaanjiVOUBBRAOYH8642-04-81 10:37:00 Test Item Value Reference Range Interpretation Comments INR (test code = INR) 0.97 1 0.85-1.17 [facility] DvsptlrDZSVGFJPWT7861-70-39 10:37:00 Test Item Value Reference Range Interpretation Comments PTT (test code = PTT) 25.0 s 22.9-35.8 [facility] ZpuazykZRUTJVHTSQ2437-97-57 10:37:0070.5[facility] HermannHEMATOLOGY 2020-08-29 10:37:0018.8[facility] IfqdmfoVVOKLMDOTU5513-10-21 10:37:009.5[facility] JspguyaIUIOYQELVU5682-69-08 10:37:000.9[facility] McmkvrvIBSBWSPITZ6247-93-80 10:37:000.3[facility] KjvuvugVWXHTKDWKA5547-97-34 10:37:004.8[facility] Maybeury ICNHBGNPEY9887-10-45 10:37:001.3[facility] NivkvceCIROUHBLFY6032-15-05 10:37:000.6 [facility] MplngtqGUWJZHEGHZ3454-83-24 10:37:000.1[facility] HermannHEMATOLOGY 2020-08-29 10:37:001+ *ABN*(08/29/20 5:37 AM)[facility] QvlvetsDNELWFRDWG3150-92-61 10:37:00Not Detected (08/29/20 5:37 AM)[facility] HermannBLOOD BANK RESULTS 2020-08-29 10:37:00Negative (08/29/20 5:37 AM)[facility] HermannCHEM YMULM1942-09-53 10:37:97462Negggsad HermannCHEM XYYKM4236-66-33 10:37:0028[facility] HermannCHEM JUMBX7688-13-19 10:37:001.01[facility] HermannCHEM JGHKH9894-38-05 10:37:96235 [facility] HermannCHEM HHNTK7774-99-01 10:37:003.8[facility] HermannCHEM PANEL 2020-08-29 10:37:37485Rgwlvryi HermannCHEM QPOVP3585-00-75 10:37:0028[facility] HermannCHEM PVNXS5128-85-04 10:37:009.8[facility] HermannCHEM FRGVM7554-16-57 10:37:0011.8[facility] HermannCHEM FKZGW8794-51-73 10:37:0059[facility] HermannCHEM JEHYS1525-66-01 10:37:002.9[facility] XgacuoeARBMMSLDBJ1281-13-56 10:37:006.8 [facility] TekpluiHQXEHGFJPS8494-01-88 10:37:004.47[facility] HermannHEMATOLOGY 2020-08-29 10:37:0010.6[facility] OhwifewPVFQCLUPVP1857-04-29 10:37:0034.0[facility] OqlwiooAORMZCABJT2831-80-94 10:37:0076.1[facility] LmbdiblRGTFXWVNSM4036-53-07 10:37:00 Test Item Value Reference Range Interpretation Comments MCH (test code = MCH) 23.8 pg 27.0-31.0 [facility]ogjjhDBBJGTZUAQ7157-69-52 10:37:0031.3[facility] HermannHEMATOLOGY 2020-08-29 10:37:0018.2[facility] JdbcgeyWJWSQOOPXG8903-71-84 10:37:99908Whqecbqe EdsidkeLSUJJFBZGH9775-24-13 10:37:007.5[facility] VtqmsbcMFHCCMXVCK5325-11-47 10:37:00 Test Item Value Reference Range Interpretation Comments PT (test code = PT) 12.8 s 12.0-14.7 [facility] EsezsgnSIFFKSNDIW8483-29-14 10:37:00 Test Item Value Reference Range Interpretation Comments INR (test code = INR) 0.97 1 0.85-1.17 [facility]oundAsiibpsPAHDDUXGBE0561-73-62 10:37:00 Test Item Value Reference Range Interpretation Comments PTT (test code = PTT) 25.0 s 22.9-35.8 [facility] OrnmfcqDRBBOWTRGO3453-13-52 10:37:0070.5[facility] HermannHEMATOLOGY 2020-08-29 10:37:0018.8[facility] CfingbrQKAJNLIZMA2647-08-70 10:37:009.5[facility] YrdtugkWJREIZCJNH7082-65-98 10:37:000.9[facility] PjztykeCKJARWVDHM5805-51-43 10:37:000.3[facility] NdlptifDFWJZCJYIC2409-43-53 10:37:004.8[facility] Maybeury MIFOEALSMV4342-19-58 10:37:001.3[facility] UnedtovGLQYICWPAX0230-23-30 10:37:000.6 [facility] MinmurtEJAWEMMWYF3306-38-23 10:37:000.1[facility] HermannHEMATOLOGY 2020-08-29 10:37:001+ *ABN*(08/29/20 5:37 AM)[facility] LungmlrWLUKRSZGBH9323-76-96 10:37:00Not Detected (08/29/20 5:37 AM)[facility] HermannBLOOD BANK RESULTS 2020-08-29 10:37:00Negative (08/29/20 5:37 AM)[facility] HermannCHEM ZEWEF9167-73-86 10:37:93529Wkycovbn HermannCHEM ABFZF0324-70-25 10:37:0028[facility] HermannCHEM XFNXY2050-94-88 10:37:001.01[facility] HermannCHEM ZJISO6186-21-64 10:37:56204 [facility] HermannCHEM YPYDF1747-48-18 10:37:003.8[facility] HermannCHEM PANEL 2020-08-29 10:37:11352Dujgamof HermannCHEM IGGXG4979-09-18 10:37:0028[facility] HermannCHEM FTDXX5001-62-89 10:37:009.8[facility] HermannCHEM CVKAR5429-67-61 10:37:0011.8[facility] HermannCHEM KQRCW8084-67-69 10:37:0059[facility] HermannCHEM IJKXN0694-63-59 10:37:002.9[facility] OvyskipLBXFSVFRFK3986-66-43 10:37:006.8 [facility] LiykztmVMHUDXZQXE2704-90-76 10:37:004.47[facility] HermannHEMATOLOGY 2020-08-29 10:37:0010.6[facility] AkdceciSOTKJTBBTO0125-91-27 10:37:0034.0[facility] FozmgeeMRSMERCIWO8837-44-99 10:37:0076.1[facility] HvhdwscHWKKOLGMXB8434-82-83 10:37:00 Test Item Value Reference Range Interpretation Comments MCH (test code = MCH) 23.8 pg 27.0-31.0 [facility] KjsikguEGDGDFAANQ5695-61-31 10:37:0031.3[facility] HermannHEMATOLOGY 2020-08-29 10:37:0018.2[facility] CyctoccHYZWEJACWV8158-23-95 10:37:45571Hjekymlz OwtpliySHIGQBTHRP4126-67-66 10:37:007.5[facility] OcjoqljMHGJWEISPJ6028-24-71 10:37:00 Test Item Value Reference Range Interpretation Comments PT (test code = PT) 12.8 s 12.0-14.7 [facility] SkwcvyrRIHKJZHDYE6053-33-05 10:37:00 Test Item Value Reference Range Interpretation Comments INR (test code = INR) 0.97 1 0.85-1.17 [facility] WqygwroDKYEMFZHKB8009-55-65 10:37:00 Test Item Value Reference Range Interpretation Comments PTT (test code = PTT) 25.0 s 22.9-35.8 [facility] ZkvdgurVWOJBGVDEB9244-53-45 10:37:0070.5[facility] HermannHEMATOLOGY 2020-08-29 10:37:0018.8[facility] KtiadznLUHHOCQGDL6434-86-78 10:37:009.5[facility] SptikffBRXDUBVRWB0214-03-35 10:37:000.9[facility] SholfthXYQNHKXSYR8824-12-36 10:37:000.3[facility] EogklyxVLDWMPDNVU5330-02-63 10:37:004.8[facility] Maybeury JILMPZCSSA4091-78-31 10:37:001.3[facility] MqsynphLJJTBPTBVI6151-58-95 10:37:000.6 [facility] LngsrgoZXTZWUQONP3897-38-11 10:37:000.1[facility] HermannHEMATOLOGY 2020-08-29 10:37:001+ *ABN*(08/29/20 5:37 AM)[facility] XcathhfMKWBVYUGTE6529-18-42 10:37:00Not Detected (08/29/20 5:37 AM)[facility] HermannCHEM PLJRV6759-16-43 10:37:03389Phvwbxzy HermannCHEM XBDMN8196-81-92 10:37:0028[facility] HermannCHEM WDUPY0069-09-79 10:37:001.01[facility] HermannCHEM REZDD7309-19-50 10:37:52672 [facility] HermannCHEM IWZBC8859-88-94 10:37:003.8[facility] HermannCHEM PANEL 2020-08-29 10:37:99454Vyvccphp HermannCHEM UFNKA5363-11-69 10:37:0028[facility] HermannCHEM IDLYJ0148-94-34 10:37:009.8[facility] HermannCHEM OVEEO9854-86-99 10:37:0011.8[facility] HermannCHEM SIVRQ3356-52-95 10:37:0059[facility] HermannCHEM TOLSE2035-16-30 10:37:002.9[facility] IdwrnhfMTLADJMPPG6584-55-23 10:37:006.8 [facility] RetpvzrKQUJVWBJZT9074-60-54 10:37:004.47[facility] HermannHEMATOLOGY 2020-08-29 10:37:0010.6[facility] EuezdogXNYZMHDSAP0857-13-20 10:37:0034.0[facility] CnfdsjcAKSGDPNLFB1949-41-60 10:37:0076.1[facility] OsswmbqDYMINDKSVQ5439-70-86 10:37:00 Test Item Value Reference Range Interpretation Comments MCH (test code = MCH) 23.8 pg 27.0-31.0 [facility] MobtbtsAFLNWCMGMA6094-63-41 10:37:0031.3[facility] HermannHEMATOLOGY 2020-08-29 10:37:0018.2[facility] IesvmpbQPLWRPBMCG3892-26-76 10:37:64441Zhiyjjfp VaxbfkpYRMXWZBBJW8828-10-73 10:37:007.5[facility] SwhpwiuCMVBMYDYRF2193-94-95 10:37:00 Test Item Value Reference Range Interpretation Comments PT (test code = PT) 12.8 s 12.0-14.7 [facility] LpoceegAHUSHLHHOB8398-48-60 10:37:00 Test Item Value Reference Range Interpretation Comments INR (test code = INR) 0.97 1 0.85-1.17 [facility] IdvoqauUAAMBYOJEZ5079-56-66 10:37:00 Test Item Value Reference Range Interpretation Comments PTT (test code = PTT) 25.0 s 22.9-35.8 [facility] KmqseuyVTVFKGOCUT4905-70-84 10:37:0070.5[facility] HermannHEMATOLOGY 2020-08-29 10:37:0018.8[facility] BosugwlURGMQCJBPF2737-57-53 10:37:009.5[facility] MnjftgfXKFRIHYCJD0329-97-05 10:37:000.9[facility] VktqdbnWBJBOWNROS0854-68-62 10:37:000.3[facility] WhzwsrdTGRECVCMLA4006-00-24 10:37:004.8[facility] Maybeury FWTAFQPVRN6038-16-35 10:37:001.3[facility] HysupblYFBXQPWHWN9216-82-33 10:37:000.6 [facility] XkbirpvOVEGGSSEMT0886-16-95 10:37:000.1[facility] HermannHEMATOLOGY 2020-08-29 10:37:001+ *ABN*(08/29/20 5:37 AM)[facility] AddcfqeVUDATJIWWM6397-84-96 10:37:00Not Detected (08/29/20 5:37 AM)[facility] HermannBLOOD BANK RESULTS 2020-08-29 10:37:00Negative (08/29/20 5:37 AM)[facility] HermannCHEM TGZWU7089-85-67 10:37:03623Jjvnthut HermannCHEM YLBHI7685-83-77 10:37:0028[facility] HermannCHEM VNJFE8714-80-64 10:37:001.01[facility] HermannCHEM WTCLB8148-93-27 10:37:90966 [facility] HermannCHEM WOBVE9472-46-36 10:37:003.8[facility] HermannCHEM PANEL 2020-08-29 10:37:67609Dhyzrnbr HermannCHEM PGYQD3078-57-87 10:37:0028[facility] HermannCHEM BFZWF8999-86-57 10:37:009.8[facility] HermannCHEM OAMLH2399-92-47 10:37:0011.8[facility] HermannCHEM CHFEH8806-93-12 10:37:0059[facility] HermannCHEM KHGQS7600-01-86 10:37:002.9[facility] NdmdwmwXBAMFEAXCP5691-87-45 10:37:006.8 [facility] IklzqzgNZGYVFBMWU0212-08-43 10:37:004.47[facility] HermannHEMATOLOGY 2020-08-29 10:37:0010.6[facility] KmzplcrUHYFOSQJYB1416-97-74 10:37:0034.0[facility] YlpurzsGTCJODNHOD6700-65-42 10:37:0076.1[facility] DudtrfwCZFBLHDTQX4698-89-48 10:37:00 Test Item Value Reference Range Interpretation Comments MCH (test code = MCH) 23.8 pg 27.0-31.0 [facility] EejkrquBYMCTDWLRH8090-00-57 10:37:0031.3[facility] HermannHEMATOLOGY 2020-08-29 10:37:0018.2[facility] UlekssjQBJCSDCUUU1416-97-41 10:37:25634Otcwunkr KzhsunkOTHCONFQBR7599-81-75 10:37:007.5[facility] PlzqijwDFKPJWNDHU7109-36-71 10:37:00 Test Item Value Reference Range Interpretation Comments PT (test code = PT) 12.8 s 12.0-14.7 [facility] OinnnbxDCUAXKQNEC0501-53-70 10:37:00 Test Item Value Reference Range Interpretation Comments INR (test code = INR) 0.97 1 0.85-1.17 [facility] LntdjzrOLABTFPSCH9881-17-69 10:37:00 Test Item Value Reference Range Interpretation Comments PTT (test code = PTT) 25.0 s 22.9-35.8 [facility] NgxruzpTTCXOGRGCZ7718-11-93 10:37:0070.5[facility] 2020-08-29 10:37:0018.8[facility] MzlnlgiRQBJJJIHMK5346-56-84 10:37:009.5[facility] VlmiqxfOQQBPFELWK5042-22-97 10:37:000.9[facility] VuoquvjUDXHSZXAGP5423-46-99 10:37:000.3[facility] DusdarqFGLBFCNARX9495-93-80 10:37:004.8[facility] RFUKRFBEZS6247-64-28 10:37:001.3[facility] NcvrbiwCNDAZSGQGR4955-96-58 10:37:000.6 [facility] RtrxohjLIOBCPYCST2894-27-01 10:37:000.1[facility]ann[facility] 2020-08-29 10:37:001+ *ABN*(08/29/20 5:37 AM)[facility]cjnbxeCRWBKLQNSH1862-38-91 10:37:00Not Detected (08/29/20 5:37 AM)[facility] 2020-08[facility]29 10:37:00Negative (08/29/20 5:37 AM)[facility], TV,PCR, IN [id number] 15:38:00 Test Item Value Reference Range Interpretation Comments FT (test code = CHTR) Not detected (qualifier Not Detected N value) FT (test code = Not detected (qualifier Not Detected N NGONO) value) FT (test code = TRVG) Not detected (qualifier Not Detected N value) [facility] [place] FUNPYKJTCAD0764-40-11 10:57:00 Test Item Value Reference Range Interpretation Comments Color (test code = UCOLR) Dk. Yellow Clarity (test code = UCLAR) Hazy Glucose (test code = UGLUC) NEGATIVE NEGATIVE N Bilirubin (test code = UBILI) NEGATIVE NEGATIVE N Ketones (test code = UKET) NEGATIVE NEGATIVE N Specific [place] (test code = 1.025 1.005-1.030 A USPGR) [...] = None Seen None Seen N URCRYS) [facility]"
[2022-06-24] MEDS ORDERED: KETOROLAC 30 MG/ML INJ ONE (15:06)
[2022-06-24] MEDS ORDERED: DIAZEPAM 2 MG TABLET ONE (15:06)
--- NOTE | 2022-06-24 15:09 | RAD REPORT ---
EXAM DESCRIPTION: RAD - Chest Single View - 06/24/2022 3:02 pm CLINICAL HISTORY: RIB PAIN - RIGHT Chest pain. COMPARISON: Chest Single View dated 06/01/2022; Chest Single View dated 05/09/2022; Chest Single View dated 05/07/2022; Chest Single View dated 05/04/2022 FINDINGS: Portable technique limits examination quality. The lungs are grossly clear. The heart is moderately enlarged in size. No displaced fractures.Bilater al shoulder arthroplasties.
--- NOTE | 2022-06-24 15:18 | RAD REPORT ---
EXAM DESCRIPTION: CT - CTHCSPWOC - 06/24/2022 3:04 pm CLINICAL HISTORY: Trauma, head and neck injury. Fall Injury COMPARISON: Head C Spine Mpr Wo Con dated 04/16/2022; Head C Spine Mpr Wo Con dated 01/04/2022; Neck Angio dated 07/05/2018; Head C Spine Mpr Wo Con dated 04/01/2018 TECHNIQUE: Axial 5 mm thick images of the head were obtained. Axial 2 mm thick images of the cervical spine were obtained with sagittal and coronal reconstruction images generated and reviewed. All CT scans are performed using dose optimization technique as appropriate and may include automated exposure control or mA/KV adjustment according to patient size. FINDINGS: CT HEAD WITHOUT CONTRAST: No acute hemorrhage, hydrocephalus or extra-axial collection is identified.Mild generalized brain atr ophy is present with moderate periventricular and deep white matter chronic microvascular ischemic ch anges.No areas of brain edema or midline shift. The paranasal sinuses and mastoids are clear.The calvarium is intact. CT CERVICAL SPINE WITHOUT CONTRAST: No fracture or subluxation.5 mm anterolisthesis C5 on 6, unchanged.No prevertebral soft tissues swell ing is identified. IMPRESSION: No acute intracranial or cervical spine findings.
--- NOTE | 2022-06-24 15:41 | RAD REPORT ---
EXAM DESCRIPTION: RAD - Hand Right 3 View - 06/24/2022 3:19 pm CLINICAL HISTORY: PAIN COMPARISON: Hand Right 3 View dated 04/21/2022; Hand Right 3 View dated 03/31/2021 FINDINGS: Diffuse osteopenia. Hardware noted distal radius. No acute fracture or dislocation.
--- NOTE | 2022-06-24 15:42 | RAD REPORT ---
EXAM DESCRIPTION: RAD - Hand Left 3 View - 06/24/2022 3:20 pm CLINICAL HISTORY: PAIN COMPARISON: Hand Left 3 View dated 08/28/2021; Hand Left 3 View dated 04/03/2014 FINDINGS: Old traumatic changes affect the radiocarpal joint and distal radius and distal ulna. Soft tissue swelling is seen the dorsal wrist region. No acute fracture clearly seen.
--- NOTE | 2022-06-24 15:57 | EDPHYS ---
Physician Documentation [facility] Name: Marjan Kolb Age: 67 yrs Sex: Female : 1955 Arrival Date: 06/24/2022 Time: 14:46 Bed 10 Private MD: ED Physician Jose Shah HPI: 06/24 14:59 This 67 yrs old Female presents to ER via EMS with complaints of Fall Injury. pm1 14:59 Details of fall: The patient fell from an upright position, while walking, and struck a pm1 concrete surface. Onset: The symptoms/episode began/occurred just prior to arrival. Associated injuries: The patient sustained injury to the head, pain, neck injury, pain, right breast, right hand and left hand. Severity of symptoms: in the emergency department the symptoms are unchanged. The patient has not experienced similar symptoms in the past. The patient has not recently seen a physician. Patient was walking fast in the parking lot with her walker and started losing control because she was walking too fast. She attempted to use the hand brake to slow down and she ended up spinning around in circles and eventually fell down onto her right side. Patient reports pain to right breast, ribs and pain to back of right side neck and head. Negative for LOC. Historical: - Allergies: 16:20 Azithromycin; ko1 16:20 butorphanol; ko1 16:20 Fentanyl; ko1 16:20 Reglan; ko1 16:20 Sulfa (Sulfonamide Antibiotics); ko1 16:20 TRIMETHOPRIM; ko1 16:20 Bactrim; ko1 - PMHx: 16:20 Anxiety; Atrial fibrillation; esophageal varicies; Hepatitis; HIV positive; ko1 Hypertensive disorder; Migraine; panic attack; Bipolar disorder; - Immunization history: Last tetanus immunization: - up to date. - Social history:: Smoking status: Patient reports the use of cigarette tobacco products, smokes one-half pack cigarettes per day. ROS: 14:59 Constitutional: Negative for fever, chills, and weight loss. pm1 14:59 Cardiovascular: Negative for chest pain, palpitations, and edema, Respiratory: Negative for shortness of breath, cough, wheezing, and pleuritic chest pain, Abdomen/GI: Negative for abdominal pain, nausea, vomiting, diarrhea, and constipation, Back: Negative for injury and pain. 14:59 Skin: Negative for injury, rash, and discoloration. 14:59 Neck: Positive for pain. History of chronic neck pain. 14:59 MS/extremity: Positive for pain, of the right hand and left hand. 14:59 Neuro: Positive for headache. 14:59 All other systems are negative. Exam: 14:59 Constitutional: This is a well developed, well nourished patient who is awake, alert, pm1 and in no acute distress. Head/Face: Normocephalic, atraumatic. Neck: Trachea midline, no thyromegaly or masses palpated, and no cervical lymphadenopathy. Supple, full range of motion without nuchal rigidity, or vertebral point tenderness. No Meningismus. 14:59 MS/ Extremity: Pulses equal, no cyanosis. Neurovascular intact. Full, normal range of motion. 14:59 Chest/axilla: Inspection: normal, Palpation: crepitus, is not appreciated, tenderness, that is mild, of the anterior midline below right breast, that totally reproduces the patient's complaints. 14:59 Cardiovascular: Exam negative for acute changes, Rate: normal, Rhythm: regular, Pulses: no pulse deficits are appreciated. 14:59 Respiratory: Exam negative for acute changes, respiratory distress, shortness of breath, Breath sounds: are clear throughout. 14:59 Abdomen/GI: Inspection: abdomen appears normal, Palpation: abdomen is soft and non-tender, in all quadrants. 14:59 Skin: Appearance: normal except for affected area, injury, contusion(s), that are superficial, of the dorsum of left hand. 14:59 Neuro: Exam negative for acute changes, Orientation: is normal, Mentation: is normal, Motor: is normal, moves all fours. Vital Signs: 15:33 BP 193 / 101; Pulse 84; Resp 16; Temp 97.8(O); Pulse Ox 99% on R/A; ko1 Crystal Coma Score: 15:12 Eye Response: spontaneous(4). Verbal Response: oriented(5). Motor Response: obeys ko1 commands(6). Total: 15. Trauma Score (Adult): 15:12 Eye Response: spontaneous(1); Verbal Response: oriented(1); Motor Response: obeys ko1 commands(2); Systolic BP: > 89 mm Hg(4); Respiratory Rate: 10 to 29 per min(4); [place] Score: 15; Trauma Score: 12 MDM: 14:47 Patient medically screened. pm1 15:09 Differential diagnosis: closed head injury, contusion, fracture, sprain. pm1 15:55 Data reviewed: vital signs. Counseling: I had a detailed discussion with the patient pm1 and/or guardian regarding: the historical points, exam findings, and any diagnostic results supporting the discharge/admit diagnosis, radiology results, the need for outpatient follow up, to return to the emergency department if symptoms worsen or persist or if there are any questions or concerns that arise at home. 06/24 14:52 Order name: CT Head C Spine pm1 06/24 14:52 Order name: Chest Single View XRAY; Complete Time: 15:26 pm1 06/24 14:56 Order name: Head C Spine Mpr Wo Con; Complete Time: 15:26 EDMS 06/24 15:08 Order name: Hand Right 3 View XRAY; Complete Time: 15:45 pm1 06/24 15:08 Order name: Hand Left 3 View XRAY; Complete Time: 15:45 pm1 Administered Medications: 15:28 Drug: Valium (diazepam) 2 mg Route: PO; ko1 15:28 Drug: Ketorolac 30 mg Route: IM; Site: right gluteus; ko1 Disposition: 19:23 Co-signature as Attending Physician, Jose CHEUNG was immediately available on-site ms3 in the Emergency Department for consultation in the care of the patient. Disposition Summary: 06/24/22 15:56 Discharge Ordered Location: Home pm1 Problem: new pm1 Symptoms: have improved pm1 Condition: Stable pm1 Diagnosis - Fall on same level, unspecified pm1 - Strain of muscle, fascia and tendon at neck level pm1 - Contusion of unspecified part of head pm1 - Contusion of right front wall of thorax pm1 - Contusion of left hand pm1 - Contusion of right hand pm1 Followup: pm1 - With: Emergency Department - When: As needed - Reason: Worsening of condition Followup: pm1 - With: Private Physician - When: 2 - 3 days - Reason: Recheck today's complaints, Continuance of care, Re-evaluation by your physician Discharge Instructions: - Discharge Summary Sheet pm1 - Rib Contusion pm1 - Hand Contusion pm1 - Head Injury, Adult pm1 - Fall Prevention in the Home, Adult pm1 - Muscle Strain pm1 Forms: - Medication Reconciliation Form pm1 - Thank You Letter pm1 - Antibiotic Education pm1 - Prescription Opioid Use pm1 Signatures: Dispatcher [employer] EDAustin Smith, WHEAT SHIPPER WHEAT SHIPPER pm1 Jose Shah DO DO ms3 Nancy Shannon, RN RN ko1
--- NOTE | 2022-06-24 15:57 | ER ---
Nurse's Notes [facility] Name: Marjan Kolb Age: 67 yrs Sex: Female : 1955 Arrival Date: 06/24/2022 Time: 14:46 Bed 10 Private MD: Diagnosis: Fall on same level, unspecified;Strain of muscle, fascia and tendon at neck level;Contusion of unspecified part of head;Contusion of right front wall of thorax;Contusion of left hand;Contusion of right hand Presentation: 06/24 15:12 Chief complaint: EMS states: patient was walking with her walker in front of her sister matthew when she fell down on the concrete. No LOC, some abrasions noted, no deformities. Care prior to arrival: None. Mechanism of Injury: Fall from standing position. Trauma event details: Injury occurred in the [facility], Injury occurred: in a public building. Injury occurred: June 24, 2022 Injury occurred at: 14:30. 15:12 Acuity: BLAYNE 3 ko1 15:12 Method Of Arrival: EMS: [facility] ko1 Trauma Activation: Not Applicable Physician: ED Physician; Name: ; Notified At: ; Arrived At: Physician: General Surgeon; Name: ; Notified At: ; Arrived At: Physician: Radiology; Name: ; Notified At: ; Arrived At: Physician: Respiratory; Name: ; Notified At: ; Arrived At: Physician: Lab; Name: ; Notified At: ; Arrived At: Historical: - Allergies: 16:20 Azithromycin; ko1 16:20 butorphanol; ko1 16:20 Fentanyl; ko1 16:20 Reglan; ko1 16:20 Sulfa (Sulfonamide Antibiotics); ko1 16:20 TRIMETHOPRIM; ko1 16:20 Bactrim; ko1 - PMHx: 16:20 Anxiety; Atrial fibrillation; esophageal varicies; Hepatitis; HIV positive; ko1 Hypertensive disorder; Migraine; panic attack; Bipolar disorder; - Immunization history: Last tetanus immunization: - up to date. - Social history:: Smoking status: Patient reports the use of cigarette tobacco products, smokes one-half pack cigarettes per day. Screenin:12 Abuse screen: Denies threats or abuse. Denies injuries from another. Tuberculosis ko1 screening: No symptoms or risk factors identified. 16:20 [facility] ED Fall Risk Assessment (Adult) History of falling in the last 3 months, ko1 including since admission Yes- single mechanical fall (1 pt) Confusion or Disorientation No (0 pts) Intoxicated or Sedated No (0 pts) Impaired Gait Yes (1 pt) Mobility Assist Device Used Yes (1 pt) Altered Elimination No (0 pt) Score/Fall Risk Level 3 or more points = High Risk Oriented to surroundings, Maintained a safe environment, Educated pt \T\ family on fall prevention, incl call for assistance when getting out of bed, Assessed \T\ reinforced patient's understanding of fall precautions, Provided non-skid footwear, Hourly rounding (assess needs \T\ fall precautionary measures) done, Used ambulatory aids as needed (educated on \T\ assisted with), Used gait belt as appropriate Implemented a Fall Risk Plan of Care, Apply high fall risk patient identification: yellow non skid footwear/ fall signage, Placed fall mat w/ non beveled edge next to bed, Activated bed/chair alarm, Remained w/in arm's length of patient and in sight while toileting, Offered frequent toileting (1:1 observation), Remained with patient while ambulating, Utilized family, sitter, or virtual plug grower as indicated. Nutritional screening: No deficits noted. Primary Survey: 15:12 NO uncontrolled hemorrhage observed. A: The client is awake and alert. The airway is ko1 patent. The client is alert. Airway: patent. Breathing/Chest: Spontaneous respiratory effort, equal unlabored respirations, breath sounds clear bilaterally, regular pattern, symmetrical chest rise and fall. Breath sounds: clear, bilaterally. Circulation: No external hemorrhage present. Regular and strong central pulse, skin warm/dry/normal color. Disability Client is alert. Exposure/Environment: There is no evidence of uncontrolled external bleeding. Reassessment Alertness and Airway: Awake and alert. The airway is patent. Breathing: Spontaneous respiratory effort, equal unlabored respirations, breath sounds clear bilaterally, regular pattern with symmetrical chest rise and fall. Circulation: No external hemorrhage noted. Regular and strong central pulse, skin warm/dry/normal color. Disability: Pupils Pupils are equal, round, reactive to light and accomodation. Alert. Assessment: 15:12 General: Appears in no apparent distress. uncomfortable, Behavior is cooperative, ko1 appropriate for age, anxious. Pain: Complains of pain in back of neck, right hand and left hand. Vital Signs: 15:33 BP 193 / 101; Pulse 84; Resp 16; Temp 97.8(O); Pulse Ox 99% on R/A; ko1 [place] Coma Score: 15:12 Eye Response: spontaneous(4). Verbal Response: oriented(5). Motor Response: obeys ko1 commands(6). Total: 15. Trauma Score (Adult): 15:12 Eye Response: spontaneous(1); Verbal Response: oriented(1); Motor Response: obeys ko1 commands(2); Systolic BP: > 89 mm Hg(4); Respiratory Rate: 10 to 29 per min(4); Crystal Score: 15; Trauma Score: 12 ED Course: 14:46 Patient arrived in ED. ss 14:47 Austin Raza NP is PHCP. pm1 14:47 Jose Shah DO is Attending Physician. pm1 14:56 Nancy Shannon, ASHLEY is Primary Nurse. ko1 15:04 Chest Single View XRAY In Process Unspecified. EDMS 15:05 Head C Spine Mpr Wo Con In Process Unspecified. EDMS 15:12 Patient has correct armband on for positive identification. Fall risk band placed. Bed ko1 in low position. Call light in reach. Side rails up X 1. Patient maintains SpO2 saturation greater than 95% on room air. 15:12 Patient maintains SpO2 saturation greater than 95% on room air. ko1 15:15 Triage completed. ko1 15:21 Hand Right 3 View XRAY In Process Unspecified. EDMS 15:21 Hand Left 3 View XRAY In Process Unspecified. EDMS 16:20 No provider procedures requiring assistance completed. Patient did not have IV access ko1 during this emergency room visit. Administered Medications: 15:28 Drug: Valium (diazepam) 2 mg Route: PO; ko1 15:28 Drug: Ketorolac 30 mg Route: IM; Site: right gluteus; ko1 Medication: 16:20 VIS not applicable for this client. ko1 Outcome: 15:56 Discharge ordered by MD. pm1 16:29 Discharged to home via wheelchair. ko1 16:29 Condition: stable 16:29 Discharge instructions given to patient, Instructed on discharge instructions, follow up and referral plans. Demonstrated understanding of instructions, follow-up care. 16:29 Patient left the ED. ko1 Signatures: Dispatcher [employer] EDMS Sandra Cadet, ASHLEY RN ss Austin Raza, HAT LINING PASTER HAT LINING PASTER pm1 Nancy Shannon RN RN ko1
[2022-06-24 16:34] VITALS: BP 193/101; TEMP 97.8; O2SAT 99
== END 2022-06-24 16:29 | disposition home or self-care (01) ==
LOC: ER 14:39
DX: S16.1XXA Strain of muscle, fascia and tendon at neck level, initial encounter (principal); S00.83XA Contusion of other part of head, initial encounter; S20.211A Contusion of right front wall of thorax, initial encounter; S60.222A Contusion of left hand, initial encounter; S60.221A Contusion of right hand, initial encounter; W18.30XA Fall on same level, unspecified, initial encounter; F17.210 Nicotine dependence, cigarettes, uncomplicated; I10 Essential (primary) hypertension; Z21 Asymptomatic human immunodeficiency virus [HIV] infection status; Z88.1 Allergy status to other antibiotic agents; Z88.2 Allergy status to sulfonamides; Z88.3 Allergy status to other anti-infective agents; Z88.5 Allergy status to narcotic agent; Z88.8 Allergy status to other drugs, medicaments and biological substances
CPT/HCPCS: 70450; 71045; 72125; 96372; 99284

== ENCOUNTER 2022-07-01 16:31 | Emergency (ER) | payer OTHER ==
--- OUTSIDE RECORDS SUMMARY | 2022-07-01 16:48 | XMS REPORT | Continuity of Care Document ---
:1955 Author Organization [facility] t Address [address] [place] [address] Care Team Providers Name Role Phone Urmila [...] Attending Clinician Unavailable Robbi Bal Attending Clinician [facility] Attending Clinician Unavailable Isaias Whiteside RN Attending Clinician Unavailable TOMY MARIE Attending Clinician Unavailable Reilly Means MD Attending Clinician Ofe Shields MD Attending Clinician Tomy Marie MD Attending Clinician Doctor Unassigned, [place] Attending Clinician Unavailable Bill COLES Attending Clinician Unavailable Bill Rose Attending Clinician CHARITY MCALLISTER Attending Clinician Unavailable Charity Mcallister MD Attending Clinician GADIEL KOEHLER Attending Clinician Unavailable Mike Lund Attending Clinician Unavailable NIKOLAI REEVES Attending Clinician Unavailable Eliseo Arce MD Attending Clinician Carol Ann IZQUIERDO, Sarai Lieberman Attending Clinician [phone] Ashly Pelletier MA Attending Clinician Unavailable Dagoberto Bass MD Attending Clinician [place] Evangelista Attending Clinician Lab, [facility] Pob I Attending Clinician Unavailable Monica Rodas MA Attending Clinician Unavailable Agustina Ortiz MA Attending Clinician Unavailable Rody Maguire RN Attending Clinician Unavailable Remigio MD, Saraswathi V. Attending Clinician HEMATPOUR, BEVERLY Attending Clinician Unavailable Caridad SALGUERO, Gloria Attending Clinician Xiao RAMIREZ, Michael Corbin Attending Clinician Unavailable Team, [facility] Attending Clinician UnavailDO PORSHA Newell Attending Clinician Unavailable Gadiel Koehler MD Attending Clinician Tyrone JENKINS, Eveline Sierra Attending Clinician Eladio Colorado RN Attending Clinician Unavailable Geraldine SALGUERO, Leyda Attending Clinician [phone] Selvin RAMIREZ, Stefanie Attending Clinician Unavailable [...] Number Effective Date Expiration Date S gabino [facility] [id number] 2012 STAR PLUS OON 00:00:00 [facility] [id number] 2019 DUAL COMPLETE HMO 00:00:00 FORMERLY [facility] [id number] 2019 PLUS 00:00:00 [facility] [id number] 2019 [facility] STAR 00:00:00 [employer] MEDICARE ADV [id number] 2019 2019 00:00:00 00:00:00 Problems Condition Condition Condition Status Onset Resolution Last Treating Co mments Source Name Details Category Date Date Treatment Clinician Date Dyspnea, Dyspnea, Disease Active Unive rs unspecifie unspecifie 02-11 it y of d type d type 00:00: [place] [address] Medical Branch Gastropare Gastropare Disease Active Overview : Methodi sis sis 4-[address] 00:[facility] note l might be different from the original. Added automatic ally from request for surgery [id number] Dysphagia Dysphagia Disease Active Overview: Methodi 4-[address] 00:00: [facility] 00 note l might be different from the original. Added automatic ally from request for surgery [id number] CCL / EPS CCL / EPS Diagnosis [...] [facility] hoxazole 1-25 Clear 00:00: Garcia 00 [facility] trimetho DA Active SV [facility] prim 1-25 Clear 00:00: Garcia [facility] codeine DA Active SV N/V [facility] 1-25 Clear 00:00: Garcia [facility] Metoclop Propensi Active UT ramide ty [...] 2017- Univers INGREDI 2-08 ity of 00:00: [place] [facility] TRIMETHO DRUG Active Hives Univers [...] Date Source Natural father Diabetes [facility] Natural father Other - see comments [facility] Natural father Coronary Heart [facility] [place] Disease [facility] Hy[facility] Social History Social Habit Start Date Stop Date Quantity Comments Source History SDOH [facility] Alcohol Frequency Hospita l History SDOH [facility] Alcohol Std Drinks Hospit al History SDWV [facility] Exposure to 2022-04-30 2022-05-10 Yes University of SARS-CoV-2 (event) 00:00:00 10:25:00 [facility] [place] [facility] Tobacco use and 2022-02-11 2022-02-11 Former smokeless Uni versity of exposure 00:00:00 00:00:00 tobacco user [facility] Tobacco Comment 2022-02-11 2022-02-11 Smokes approx 1-2 Un iversity of 00:00:00 00:00:00 cigarettes per [facility] day when she Branch smokes Alcohol intake 2020-12-08 2020-12-08 Current drinker [facility] 00:00:00 00:00:00 of [facility] (finding) Cigarettes smoked 2020-09-05 2020-09-[address] current (pack per 00:00[facility]00 [facility] - Reported Cigarette 2020-09-05 2020-09-05 [facility] pack-years 00:00:00 00:00:00 Hospital Alcohol Comment 2016-09-23 2016-09-23 rare [facility] 00:00:00 00:00:00 Hospital History of tobacco 2011-09-29 User of smokeless University of use 00:00:00 tobacco [facility] [place] [facility] Sex Assigned At [birth year] [facility] 00:[facility]:00 00:00:00 Smoking Status Start Date Stop Date Source Ex-smoker 2022-02-11 00:00:00 2022-02-11 00:00:00 Universi ty of [facility] [place] [facility] Medications Ordered Filled Start Stop Current Ordering Indication Dosage Frequency Signature Comments Components Source Medication Medication Date Date Medication? Clinician (SIG) Name Name potassium 2021-05- No 10meq 10 mEq, IV Univers chloride in 07-11 Piggyback, i ty of water 10 20:00: 22:00 ONCE, 1 [place] mEq/100 mL 00 :00 dose, On Medic al RTU 10 mEq [facility] 05/10/22 at 1400, Administer over 60 Minutes, 100 mL magnesium 2021-05 No 800mg 800 mg, Uni vers oxide 07-11 Oral, ity of (MAG-OX 20:00: 19:37 ONCE, 1 [place] 400) tablet 00 :00 dose, On Medi porfirio 800 mg [facility] 05/10/22 at 1400, Routine KCL 2021-05- No 40meq 40 mEq, Univers (KLOR-CON 07-11 Oral, ity of M20) tablet 19:15: 19:37 ONCE, 1 [place] 40 mEq 00 :00 dose, On Medical [facility] 05/10/22 at 1315, JOE hydralAZINE 2021-05- No 10mg 10 mg, Uni vers (APRESOLINE 07-11 Slow IV ity of ) injection 18:45: 18:42 [place] 10 mg 00 :00 ONCE, 1 Medical dose, On [facility] 05/10/22 at 1245, JOE NaCl 0.9% 2021-05- No 1000mL at 999 Uni vers (NS) bolus 07-11 mL/hr, ity of infusion 17:45: 20:00 1,000 mL, [place] 1,000 mL 00 :00 IV Medical Infusion, Branch ONCE, 1 dose, On [facility] 05/10/22 at 1145, JOE cefpodoxime 2021-05- Yes [id number] 100mg Take 1 Univers 100 mg 2-17 12-25 tablet by ity of tablet 00:00: 05:59 mouth in [place] 00 :[address] [facility] Branch and 1 tablet in the evening. Do all this for 7 days. cefpodoxime 2021-05- Yes [id number] 100mg Take 1 Univers 100 mg 2-17 12-25 tablet by ity of tablet 00:00: 05:59 mouth in [place] 00 :00 the [facility] morning Branch and 1 tablet in the evening. Do all this for 7 days. cefpodoxime 2021-05- Yes [id number] 100mg Take 1 Univers 100 mg 2-17 12-25 tablet by ity of tablet 00:00: 05:59 mouth in [place] 00 :00 the Medical [...] Infusion, Medical ONCE, 1 Branch dose, On [facility] 05/06/22 at 1800, JOE ketorolac 2021-05 No 15mg 15 mg, Unive rs (TORADOL) 2-15 12-15 Slow IV ity of injection 22:00: 22:19 Push, [place] 15 mg 00 :00 ONCE, 1 Medical dose, On Branch [facility] 05/06/22 at 1600, JOE NaCl 0.9% 2021-05- No 1000mL at 999 Uni vers (NS) bolus 2-15 12-15 mL/hr, ity of infusion 22:00: 23:41 1,000 mL, [place] 1,000 mL 00 :00 IV Medical Infusion, Branch ONCE, 1 dose, On [facility] 05/06/22 at 1600, JOE ondansetron 2021-05- No 8mg 8 mg, Slow Univers (ZOFRAN 2-15 12-15 IV Push, ity of (PF)) 21:15: 22:19 ONCE, 1 [place] injection 8 00 :00 dose, On Medi porfirio mg [place] 05/06/22 at 1515, JOE ondansetron 2021-05 Yes [id number] 1-2 U nivers 4 mg tablet 2-15 tablets ity o f 00:00: every 8 [place] 00 hours as Medical needed for Branch nausea benzonatate 2021-05 Yes [id number] 200mg Take 1 Univers 200 mg 2-15 capsule by ity of capsule 00:00: mouth 3 [place] 00 (three) Medical times Branch daily as needed for Cough. albuterol 2021-05 Yes [id number] 2{puff} Inhale 2 Univers 90 2-15 Puffs ity of mcg/actuati 00:00: every 4 [place] on inhaler 00 (four) Medical hours as Branch needed for Wheezing or Shortness of Breath. butalbital- 2021-05 Yes [id number] 1{tbl} Take 1 Univers acetaminoph 2-15 tablet by ity of en-caff 00:00: mouth [place] 50-325-40 00 every 4 Medical mg tablet (four) Branch hours as needed (headache) . ondansetron 2021-05 Yes [id number] 1-2 U nivers 4 mg tablet 2-15 tablets ity o f 00:00: every 8 [place] 00 hours as Medical needed for Branch nausea benzonatate 2021-05 Yes [id number] 200mg Take 1 Univers 200 mg 2-15 capsule by ity of capsule 00:00: mouth 3 [place] 00 (three) Medical times Branch daily as needed for Cough. albuterol 2021-05 Yes [id number] 2{puff} Inhale 2 Univers 90 2-15 Puffs ity of mcg/actuati 00:00: every 4 [place] on inhaler 00 (four) Medical hours as Branch needed for Wheezing or Shortness of Breath. butalbital- 2021-05 Yes [id number] 1{tbl} Take 1 Univers acetaminoph 2-15 tablet by ity of en-caff 00:00: mouth [place] 50-325-40 00 every 4 Medical mg tablet (four) Branch hours as needed (headache) . ondansetron 2021-05 Yes [id number] 1-2 U nivers 4 mg tablet 2-15 tablets ity o f 00:00: every 8 [place] 00 hours as Medical needed for Branch nausea benzonatate 2021-05 Yes [id number] 200mg Take 1 Univers 200 mg 2-15 capsule by ity of capsule 00:00: mouth 3 [place] 00 (three) Medical times Branch daily as needed for Cough. albuterol 2021-05 Yes [id number] 2{puff} Inhale 2 Univers 90 2-15 Puffs ity of mcg/actuati 00:00: every 4 [place] on inhaler 00 (four) Medical hours as Branch needed for Wheezing or Shortness of Breath. butalbital- 2021-05 Yes [id number] 1{tbl} Take 1 Univers acetaminoph 2-15 tablet by ity of en-caff 00:00: mouth [place] 50-325-40 00 every 4 Medical mg tablet (four) Branch hours as needed (headache) . ondansetron 2021-05 Yes [id number] 1-2 U nivers 4 mg tablet 2-15 tablets ity o f 00:00: every 8 [place] 00 hours as Medical needed for Branch nausea benzonatate 2021-05 Yes [id number] 200mg Take 1 Univers 200 mg 2-15 capsule by ity of capsule 00:00: mouth 3 [place] 00 (three) Medical times Branch daily as needed for Cough. albuterol 2021-05 Yes [id number] 2{puff} Inhale 2 Univers 90 2-15 Puffs ity of mcg/actuati 00:00: every 4 [place] on inhaler 00 (four) Medical hours as Branch needed for Wheezing or Shortness of Breath. butalbital- 2021-05 Yes [id number] 1{tbl} Take 1 Univers acetaminoph 2-15 tablet by ity of en-caff 00:00: mouth [place] 50-325-40 00 every 4 Medical mg tablet (four) Branch hours as needed (headache) . ondansetron 2021-05 Yes [id number] 1-2 U nivers 4 mg tablet 2-15 tablets ity o f 00:00: every 8 [place] 00 hours as Medical needed for Branch nausea benzonatate 2021-05 Yes [id number] 200mg Take 1 Univers 200 mg 2-15 capsule by ity of capsule 00:00: mouth 3 [place] 00 (three) Medical times Branch daily as needed for Cough. albuterol 2021-05 Yes [id number] 2{puff} Inhale 2 Univers 90 2-15 Puffs ity of mcg/actuati 00:00: every 4 [place] on inhaler 00 (four) Medical hours as Branch needed for Wheezing or Shortness of Breath. butalbital- 2021-05 Yes [id number] 1{tbl} Take 1 Univers acetaminoph 2-15 tablet by ity of en-caff 00:00: mouth [place] 50-325-40 00 every 4 Medical mg tablet (four) Branch hours as needed (headache) . ondansetron 2021-05 Yes [id number] 1-2 U nivers 4 mg tablet 2-15 tablets ity o f 00:00: every 8 [place] 00 hours as Medical needed for Branch nausea benzonatate 2021-05 Yes [id number] 200mg Take 1 Univers 200 mg 2-15 capsule by ity of capsule 00:00: mouth 3 [place] 00 (three) Medical times Branch daily as needed for Cough. albuterol 2021-05 Yes [id number] 2{puff} Inhale 2 Univers 90 2-15 Puffs ity of mcg/actuati 00:00: every 4 [place] on inhaler 00 (four) Medical hours as Branch needed for Wheezing or Shortness of Breath. butalbital- 2021-05 Yes [id number] 1{tbl} Take 1 Univers acetaminoph 2-15 tablet by ity of en-caff 00:00: mouth [place] 50-325-40 00 every 4 Medical mg tablet (four) Branch hours as needed (headache) . nirmatrelvi 2021-05- Yes [id number] 2{tbl} Take 2 Univers r-ritonavir 2-15 12-21 tablets by i ty of (PAXLOVID, 00:00: 05:59 mouth in [place] EUA,) 300 00 :00 the Medical mg (150 mg morning Branch x 2)-100 mg and 2 tablet tablets in the evening. Do all this for 5 days. nirmatrelvi 2021-05- Yes [id number] 2{tbl} Take 2 Univers r-ritonavir 2-15 12-21 tablets by i ty of (PAXLOVID, 00:00: 05:59 mouth in [place] EUA,) 300 00 :00 the Medical mg (150 mg morning Branch x 2)-100 mg and 2 tablet tablets in the evening. Do all this for 5 days. nirmatrelvi 2021-05- Yes [id number] 2{tbl} Take 2 Univers r-ritonavir 2-15 12-21 tablets by i ty of (PAXLOVID, 00:00: 05:59 mouth in [place] EUA,) 300 00 :00 the Medical mg (150 mg morning Branch x 2)-100 mg and 2 tablet tablets in the evening. Do all this for 5 days. nirmatrelvi 2021-05- Yes [id number] 2{tbl} Take 2 Univers r-ritonavir 2-15 - [...] 04/22/22 at 1645, Routine amoxicillin 2021-05 Yes [id number] 1{tbl} Take 1 Univers -clavulanat 2- [id number] tablet by i ty of e 875-125 00:00: mouth [place] mg per 00 every 12 Medical tablet (twelve) Branch hours. ondansetron 2021-05 Yes [id number] 4mg Take 1 Univers 4 mg 2- [id number] tablet by ity of disintegrat 00:00: mouth [place] ing tablet 00 every 8 Medica l (eight) Branch hours as needed for Nausea and Vomiting (N/V). amoxicillin 2021-05 Yes [id number] 1{tbl} Take 1 Univers -clavulanat 2- [id number] tablet by i ty of e 875-125 00:00: mouth [place] mg per 00 every 12 Medical tablet (twelve) Branch hours. ondansetron 2021-05 Yes [id number] 4mg Take 1 Univers 4 mg 2-01 [id number] tablet by ity of disintegrat 00:00: mouth [place] ing tablet 00 every 8 Medica l (eight) Branch hours as needed for Nausea and Vomiting (N/V). amoxicillin 2021-05 Yes [id number] 1{tbl} Take 1 Univers -clavulanat 2-01 [id number] tablet by i ty of e 875-125 00:00: mouth [place] mg per 00 every 12 Medical tablet (twelve) Branch hours. ondansetron 2021-05 Yes [id number] 4mg Take 1 Univers 4 mg 2-01 [id number] tablet by ity of disintegrat 00:00: mouth [place] ing tablet 00 every 8 Medica l (eight) Branch hours as needed for Nausea and Vomiting (N/V). amoxicillin 2021-05 Yes [id number] 1{tbl} Take 1 Univers -clavulanat 2-01 [id number] tablet by i ty of e 875-125 00:00: mouth [place] mg per 00 every 12 Medical tablet (twelve) Branch hours. ondansetron 2021-05 Yes [id number] 4mg Take 1 Univers 4 mg 2-01 [id number] tablet by ity of disintegrat 00:00: mouth [place] ing tablet 00 every 8 Medica l (eight) Branch hours as needed for Nausea and Vomiting (N/V). amoxicillin 2021-05 Yes [id number] 1{tbl} Take 1 Univers -clavulanat 2-01 [id number] tablet by i ty of e 875-125 00:00: mouth [place] mg per 00 every 12 Medical tablet (twelve) Branch hours. ondansetron 2021-05 Yes [id number] 4mg Take 1 Univers 4 mg 2- [id number] tablet by ity of disintegrat 00:00: mouth [place] ing tablet 00 every 8 Medica l (eight) Branch hours as needed for Nausea and Vomiting (N/V). amoxicillin 2021-05 Yes [id number] 1{tbl} Take 1 Univers -clavulanat 2-01 [id number] tablet by i ty of e 875-125 00:00: mouth [place] mg per 00 every 12 Medical tablet (twelve) Branch hours. ondansetron 2021-05 Yes [id number] 4mg Take 1 Univers 4 mg 2-01 [id number] tablet by ity of disintegrat 00:00: mouth [place] ing tablet 00 every 8 Medica l (eight) Branch hours as needed for Nausea and Vomiting (N/V). amoxicillin 2021-05 Yes [id number] 1{tbl} Take 1 Univers -clavulanat 2-01 [id number] tablet by i ty of e 875-125 00:00: mouth [place] mg per 00 every 12 Medical tablet (twelve) Branch hours. ondansetron 2021-05 Yes [id number] 4mg Take 1 Univers 4 mg 2-01 [id number] tablet by ity of disintegrat 00:00: mouth [place] ing tablet 00 every 8 Medica l (eight) Branch hours as needed for Nausea and Vomiting (N/V). amoxicillin 2021-05 Yes [id number] 1{tbl} Take 1 Univers -clavulanat 06-23 [id number] tablet by i ty of e 875-125 00:00: mouth [place] mg per 00 every 12 Medical tablet (twelve) Branch hours. ondansetron 2021-05 Yes [id number] 4mg Take 1 Univers 4 mg 06-23 [id number] tablet by ity of disintegrat 00:00: mouth [place] ing tablet 00 every 8 Medica l (eight) Branch hours as needed for Nausea and Vomiting (N/V). zoster 2021-05- No [id number] .5mL 0.5 mL by Univers vaccine, 0-14 10-15 9104 Intramuscu ity of recombinant 00:00: 04:59 lar route [place] (SHINGRIX, 00 :00 once now Medic al PF,) for 1 Branch injection dose. And repeat in 2-6 months zoster 2021-05- No [id number] .5mL 0.5 mL by Univers vaccine, 0-14 10-15 9104 Intramuscu ity of recombinant 00:00: 04:59 lar route [place] (SHINGRIX, 00 :00 once now Medic al PF,) for 1 Branch injection dose. And repeat in 2-6 months zoster 2021-05- No [id number] .5mL 0.5 mL by Univers vaccine, 0-14 [...] o f 1 mg tablet 19:28: at [place] [address] bedtime. Medical Branch traZODone 2021-0 Yes 50mg Take 50 mg Un matt 100 mg 9-27 by mouth ity of tablet 19:28: at [place] [address] bedtime. Medical Branch hydralAZINE 2021-0 Yes 25mg [...] 100 mg 04 (two) Medical tablet times [place] daily. amLODIPine 2021-0 Yes 10mg Take 10 mg U nivers (NORVASC) 9-27 by mouth ity of 10 mg 19:28: daily. [place] tablet 04 Medical Branch clonazePAM 2021-0 Yes 1mg Take 1 mg Un matt (KLONOPIN) 9-27 by mouth ity o f 1 mg tablet 19:28: at [place] [address] bedtime. Medical Branch traZODone 2021-0 Yes 50mg Take 50 mg Un matt 100 mg 9-27 by mouth ity of tablet 19:28: at [place] [address] bedtime. Medical Branch hydralAZINE 2021-0 Yes 25mg [...] o f 1 mg tablet 19:28: at [place] [address] bedtime. Medical Branch traZODone 2021-0 Yes 50mg Take 50 mg Un matt 100 mg 9-27 by mouth ity of tablet 19:28: at [place] [address] bedtime. Medical Branch hydralAZINE 2021-0 Yes 25mg [...] o f 1 mg tablet 19:28: at [place] [address] bedtime. Medical Branch traZODone 2021-0 Yes 50mg Take 50 mg Un matt 100 mg 9-27 by mouth ity of tablet 19:28: at [place] [address] bedtime. Medical Branch hydralAZINE 2021-0 Yes 25mg [...] o f 1 mg tablet 19:28: at [place] [address] bedtime. Medical Branch traZODone 2021-0 Yes 50mg Take 50 mg Un matt 100 mg 9- by mouth ity of tablet 19:28: at [place] [address] bedtime. Medical Branch hydralAZINE 2021-0 Yes 25mg [...] o f 1 mg tablet 19:28: at [place] [address] bedtime. Medical Branch traZODone 2022-0 Yes 50mg Take 50 mg Un matt 100 mg 9-27 by mouth ity of tablet 19:28: at [place] [address] bedtime. Medical Branch hydralAZINE 2-0 Yes 25mg [...] o f 1 mg tablet 19:28: at [place] [address] bedtime. Medical Branch traZODone 2-0 Yes 50mg Take 50 mg Un matt 100 mg 9-27 by mouth ity of tablet 19:28: at [place] [address] bedtime. Medical Branch hydralAZINE 2021-0 Yes 25mg [...] o f 1 mg tablet 19:28: at [place] [address] bedtime. Medical Branch traZODone 2022-0 Yes 50mg Take 50 mg Un matt 100 mg 9-27 by mouth ity of tablet 19:28: at [place] [address] bedtime. Medical Branch hydralAZINE 2-0 Yes 25mg [...] o f 1 mg tablet 19:28: at [place] [address] bedtime. Medical Branch traZODone 2-0 Yes 50mg Take 50 mg Un matt 100 mg 9-27 by mouth ity of tablet 19:28: at [place] [address] bedtime. Medical Branch hydralAZINE 2-0 Yes 25mg [...] o f 1 mg tablet 19:28: at [place] [address] bedtime. Medical Branch traZODone 2021-0 Yes 50mg Take 50 mg Un matt 100 mg 9-27 by mouth ity of tablet 19:28: at [place] [address] bedtime. Medical Branch hydralAZINE 2021-0 Yes 25mg [...] o f 1 mg tablet 19:28: at [place] [address] bedtime. Medical Branch traZODone 2021-0 Yes 50mg Take 50 mg Un matt 100 mg 9-27 by mouth ity of tablet 19:28: at [place] [address] bedtime. Medical Branch hydralAZINE 2021-0 Yes 25mg [...] o f 1 mg tablet 19:28: at [place] [address] bedtime. Medical Branch traZODone 2-0 Yes 50mg Take 50 mg Un matt 100 mg 9-27 by mouth ity of tablet 19:28: at [place] [address] bedtime. Medical Branch hydralAZINE 2-0 Yes 25mg [...] o f 1 mg tablet 19:28: at [place] [address] bedtime. Medical Branch traZODone 2021-0 Yes 50mg Take 50 mg Un matt 100 mg 9-27 by mouth ity of tablet 19:28: at [place] [address] bedtime. Medical Branch hydralAZINE 2021-0 Yes 25mg [...] o f 1 mg tablet 19:28: at [place] [address] bedtime. Medical Branch traZODone 2021-0 Yes 50mg Take 50 mg Un matt 100 mg 9-27 by mouth ity of tablet 19:28: at [place] [address] bedtime. Medical Branch hydralAZINE 2021-0 Yes 25mg [...] mouth ity of 10 mg 19:28: daily. [place] tablet 04 Medical Branch clonazePAM 2021-0 Yes 1mg Take 1 mg Un matt (KLONOPIN) 9-27 by mouth ity o f 1 mg tablet 19:28: at [place] [address] bedtime. Medical Branch traZODone 2021-0 Yes 50mg Take 50 mg Un matt 100 mg 9-27 by mouth ity of tablet 19:28: at [place] [address] bedtime. Medical Branch hydralAZINE 2021-0 Yes 25mg [...] o f 1 mg tablet 19:28: at [place] [address] bedtime. Medical Branch traZODone Yes 50mg Take 50 mg Un matt 100 mg 02-16 by mouth ity of tablet 19:28: at [place] [address] bedtime. Medical Branch cefpodoxime 2021- No [id number] 200mg Take 1 Univers 200 mg 02-16 tablet by ity of tablet 00:00: 04:59 mouth in [place] 00 :00 the Medical morning Branch and 1 tablet in the evening. Do all this for 3 days. cefpodoxime 2021- No [id number] 200mg Take 1 Univers 200 mg 02-16 tablet by ity of tablet 00:00: 04:59 mouth in [place] 00 :00 the Medical morning Branch and 1 tablet in the evening. Do all this for 3 days. haloperidol 2021- No 2mg 2 mg, Slow Univers lactate 02-15 IV Push, ity of (HALDOL) 09:00: 09:12 ONCE, 1 [place] injection 2 00 :00 dose, On Medi porfirio mg Mon Branch 02/15/22 at 0400, Routine hydroCHLORO Yes 25mg 25 mg, Univ ers thiazide 9-25 Oral, ity of (ESIDRIX) 14:00: DAILY, [place] capsule 25 00 First dose Med ical mg on [place] Branch 02/14/22 at 0900, Until Discontinu ed, Routine butalbital- Yes 1{tbl} 1 tablet, Univers acetaminoph - Oral, ity of en-caff 18:46: Q6HPRN, [place] [...] dose on [place] cream 00 [facility] Medical 02/11/22 at Branch 1400, Until Discontinu ed, Routine busPIRone 202-0 Yes 30mg 30 mg, Univer s (BUSPAR) 02-11 Oral, BID, ity o f tablet 30 18:00: First dose [place] mg 00 on [facility] Medical 02/11/22 at Branch 1300, Until Discontinu ed, Routine raltegravir 2021-0 Yes 400mg 400 mg, Un matt (ISENTRESS) 02-11 Oral, BID, it y of tablet 400 18:00: First dose [place] mg 00 on [facility] Medical 02/11/22 at Branch 1300, Until Discontinu ed, JOE metoprolol 2021-0 Yes 100mg 100 mg, Uni vers tartrate 02-11 Oral, BID, ity o f (LOPRESSOR) 18:00: First dose [place] tablet 100 00 on [facility] mg 02/11/22 at Branch 1300, Until Discontinu ed, Routine lisinopriL 2021-0 Yes 40mg 40 mg, Unive rs (PRINIVIL,Z 02-11 Oral, BID, it y of ESTRIL) 18:00: First dose [place] tablet 40 00 on [facility] mg 02/11/22 at Branch 1300, Until Discontinu ed, Routine emtricitabi 2021-0 Yes 1{tbl} [address], [facility] 02-[facility] Oral, ity of r alafen 18:00: DAILY, [place] (DESCOVY) 00 First dose Medi porfirio tablet 1 on [facility] tablet 02/11/22 at 1300, Until Discontinu ed, Routine ipratropium 2021-0 Yes .5mg 0.5 mg, Uni vers (ATROVENT) 02-11 Inhalation ity of 0.02 % 17:57: , MERY, [place] nebulizer 10 Starting Medica l solution on [facility] Branch 0.5 mg 02/11/22 at 1257, [...] Branch last modificati on) on [facility] 02/11/22 at 1230, Until Discontinu ed, Routine HYDROcodone 2021- No 1{tbl} 1 tablet, Univers -acetaminop 02-11 Oral, ity of hen (NORCO 14:11: 17:37 Q6HPRN, [place] 5) 5-325 mg 03 :24 Starting Medi porfirio tablet 1 on [facility] Branch tablet 02/11/22 at 0911, Until Tue02/12/22 at 1237, Routine, Pain (scale 7-10) melatonin Yes 3mg 3 mg, Univers (MELATIN) 02-11 Oral, ity of tablet 3 mg 14:08: QHSPRN, [place] 17 Starting Medical on [facility] Branch 02/11/22 at 0908, Until Discontinu ed, Routine, Insomnia acetaminoph 2021- No 1{tbl} 1 tablet, Univers en-codeine 02-11 Oral, ity of (TYLENOL 14:06: 17:37 Q6HPN, [place] #3) 300-30 19 :24 Starting Medic al mg tablet 1 on [facility] tablet 02/11/22 at 0906, Until Tue02/12/22 at 1237, Routine, Pain (scale 4-6) sennosides- Yes 1{tbl} 1 tablet, Univers docusate 02-11 Oral, ity of sodium 14:06: QDAILYPRN, [place] (SENOKOT-S) 09 Starting Medi porfirio 8.6-50 mg on [facility] per tablet 02/11/22 at 1 tablet 0906, Until Discontinu ed, Routine, Constipati on ondansetron Yes 4mg 4 mg, Slow Univers (ZOFRAN 02-11 IV Push, ity of (PF)) 14:05: Q6HPRN, [place] injection 4 59 Starting Medi porfirio mg on [place] Branch 02/11/22 at 0905, Until Discontinu ed, Routine, Nausea and Vomiting (N/V) acetaminoph Yes 650mg 650 mg, Un matt en 02-11 Oral, ity of (TYLENOL) 14:04: Q6HPRN, [place] tablet 650 37 Starting Medic al mg [...] ity of ) 25 mg 09:10: daily. [place] tablet 54 [facility] amLODIPine 0 Yes 10mg Take 10 mg U nivers (NORVASC) 02-11 by mouth ity of 10 mg 09:10: daily. [place] tablet 54 [facility] piperacilli 2021- [...] of therapy: 72 hours iopamidol 2- No [id number] 60mL 60 mL, Univers (ISOVUE 02-11 Intravenou [...] dose, On Medi porfirio mg [facility] 02/11/22 at 0045, JOE acetaminoph 2021- No 975mg 975 mg, U nivers en 02-11 Oral, ity of (TYLENOL) 05:15: 04:19 ONCE, 1 [place] 975 00 :00 dose, On Medic al mg [facility] 02/11/22 at 0015, JOE emtricitabi 0 Yes [id number] Take one Univers ne-tenofovi 9-12 po daily ity of r alafen 00:00: [place] (DESCOVY) 00 Medical tablet Branch emtricitabi 0 Yes [id number] Take one Univers ne-tenofovi 9-12 po daily ity of r alafen 00:00: [place] (DESCOVY) Medical tablet Branch emtricitabi 0 Yes [id number] Take one Univers ne-tenofovi 9-12 po daily ity of r alafen 00:00: [place] (DESCOVY) 00 Medical tablet Branch emtricitabi 0 Yes [id number] Take one Univers ne-tenofovi 9-12 po daily ity of r alafen 00:00: [place] (DESCOVY) 00 Medical tablet Branch emtricitabi Yes [id number] Take one Univers ne-tenofovi 9-12 po daily ity of r alafen 00:00: [place] (DESCOVY) 00 Medical tablet Branch emtricita Yes [id number] Take one Univers ne-tenofovi 9-12 po daily ity of r alafen 00:00: [place] (DESCOVY) 00 Medical tablet Branch emtricita Yes [id number] Take one Univers ne-tenofovi 9-12 po daily ity of r alafen 00:00: [place] (DESCOVY) 00 Medical tablet Branch emtricita Yes [id number] Take one Univers ne-tenofovi 9-12 po daily ity of r alafen 00:00: [place] (DESCOVY) 00 Medical tablet Branch emtricita Yes [id number] Take one Univers ne-tenofovi 9-12 po daily ity of r alafen 00:00: [place] (DESCOVY) 00 Medical tablet Branch [facility] Yes [id number] Take one Univers ne-tenofovi 9-12 po daily ity of r alafen 00:00: [place] (DESCOVY) 00 Medical tablet Branch [facility] [id number] Take one Univers ne-tenofovi 9-12 po daily ity of r alafen 00:00: [place] (DESCOVY) 00 Medical tablet Branch emtricita Yes [id number] Take one Univers ne-tenofovi 9-12 po daily ity of r alafen 00:00: [place] (DESCOVY) 00 Medical tablet Branch emtricita Yes [id number] Take one Univers ne-tenofovi 9-12 po daily ity of r alafen 00:00: [place] (DESCOVY) 00 Medical tablet Branch emtricita Yes [id number] Take one Univers ne-tenofovi 9-12 po daily ity of r alafen 00:00: [place] (DESCOVY) 00 Medical tablet Branch emtricita Yes [id number] Take one Univers ne-tenofovi 9-12 po daily ity of r alafen 00:00: [place] (DESCOVY) 00 Medical tablet Branch emtricitabi 2021-0 Yes [id number] Take one Univers ne-tenofovi 9-12 po daily ity of r alafen 00:00: [place] (DESCOVY) Medical tablet Branch emtricitabi 2021-0 Yes [id number] Take one Univers ne-tenofovi 9-12 po daily ity of r alafen 00:00: [place] (DESCOVY) Medical tablet Branch naproxen 2021-0 Yes [id number] 500mg Take 1 U nivers (NAPROSYN) 7-24 tablet by ity of 500 mg 00:00: mouth in [place] tablet 00 the Medical morning Branch and 1 tablet in the evening. Take with meals. methocarbam 2021-0 Yes [id number] 500mg Take 1 Univers oL 500 mg 7-24 tablet by ity o f tablet 00:00: mouth 4 [place] [address] ([facility]) [facility] times [place] daily. naproxen 2021-0 Yes [id number] 500mg Take 1 U nivers (NAPROSYN) 7-24 tablet by ity of 500 mg 00:00: mouth in [place] tablet 00 the Medical morning Branch and 1 tablet in the evening. Take with meals. methocarbam 2021-0 Yes [id number] 500mg Take 1 Univers oL 500 mg 7-24 tablet by ity o f tablet 00:00: mouth 4 [place] ([facility]) [facility] times [place] daily. naproxen 2021-0 Yes [id number] 500mg Take 1 U nivers (NAPROSYN) 7-24 tablet by ity of 500 mg 00:00: mouth in [place] tablet 00 the Medical morning Branch and 1 tablet in the evening. Take with meals. methocarbam 2021-0 Yes [id number] 500mg Take 1 Univers oL 500 mg 7-24 tablet by ity o f tablet 00:00: mouth 4 [place] ([facility]) [facility] times [place] daily. naproxen 2021-0 2022- No [id number] 500mg Take 1 Univers (NAPROSYN) 7-24 10-14 tablet by ity of 500 mg 00:00: 00:00 mouth in [place] tablet 00 :00 the Medical morning Branch and 1 tablet in the evening. Take with meals. methocarbam 2021-0 2022- No [id number] 500mg Take 1 [facility] oL 500 mg 7-24 10-14 tablet by ity of tablet 00:00: 00:00 mouth 4 [place] 00 :00 (four) Medical times Branch daily. naproxen 2021- No [id number] 500mg Take 1 Univers (NAPROSYN) 12-13 tablet by ity of 500 mg 00:00: 00:00 mouth in [place] tablet 00 :00 the Medical morning Branch and 1 tablet in the evening. Take with meals. methocarbam 2021- No [id number] 500mg Take 1 Univers oL 500 mg [...] daily. Branch traZODONE 2021- No Take by [facility] ers (DESYREL) 11-20 mouth at ity o f 10 mg/mL 09:10: 00:00 [place]time. [place] oral 28 :00 Medical suspension Branch hydralAZINE Yes 25mg Take 25 mg Univers (APRESOLINE 11-20 by mouth ity of ) 25 mg 08:47: daily. [place] tablet 47 Medical Branch cephALEXin 2021- No [id number] 500mg Take 1 Univers (KEFLEX) 10-24 capsule [...] Indication s: acute pain buPROPion 0 Yes [id number] 150mg Take 1 U nivers XL 4-12 tablet by ity of (WELLBUTRIN 00:00: mouth [place] XL) 150 mg 00 daily. Medical 24 hr Branch tablet busPIRone 2021-0 Yes [id number] 30mg Take 1 Un matt 30 mg 4-12 tablet by ity of tablet 00:00: mouth 2 [place] 00 (two) Medical times Branch daily. SERTraline 2021-0 Yes [id number] 200mg Take 2 [facility] 100 mg 4-12 tablets by ity of tablet 00:00: mouth [place] 00 daily. Medical Branch buPROPion 0 Yes [id number] 150mg Take 1 U nivers XL 4-12 tablet by ity of (WELLBUTRIN 00:00: mouth [place] XL) 150 mg 00 daily. Medical 24 hr Branch tablet busPIRone 2021-0 Yes [id number] 30mg Take 1 Un matt 30 mg 4-12 tablet by ity of tablet 00:00: mouth 2 [place] 00 (two) Medical times Branch daily. SERTraline 2021-0 Yes [id number] 200mg Take 2 [facility] 100 mg 4-12 tablets by ity of tablet 00:00: mouth [place] 00 daily. Medical Branch buPROPion 2021-0 Yes [id number] 150mg Take 1 U nivers XL 4-12 tablet by ity of (WELLBUTRIN 00:00: mouth [place] XL) 150 mg 00 daily. Medical 24 hr Branch tablet busPIRone 2021-0 Yes [id number] 30mg Take 1 Un matt 30 mg 4-12 tablet by ity of tablet 00:00: mouth 2 [place] 00 (two) Medical times Branch daily. SERTraline 2021-0 Yes [id number] 200mg Take 2 [facility] 100 mg 4-12 tablets by ity of tablet 00:00: mouth [place] 00 daily. Medical Branch buPROPion 2021-0 Yes [id number] 150mg Take 1 U nivers XL 4-12 tablet by ity of (WELLBUTRIN 00:00: mouth [place] XL) 150 mg 00 daily. Medical 24 hr Branch tablet busPIRone 2021-0 Yes [id number] 30mg Take 1 Un matt 30 mg 4-12 tablet by ity of tablet 00:00: mouth 2 [place] 00 (two) Medical times Branch daily. SERTraline 0 Yes [id number] 200mg Take 2 [facility] 100 mg 4-12 tablets by ity of tablet 00:00: mouth [place] 00 daily. Medical Branch buPROPion 0 Yes [id number] 150mg Take 1 U nivers XL 4-12 tablet by ity of (WELLBUTRIN 00:00: mouth [place] XL) 150 mg 00 daily. Medical 24 hr Branch tablet busPIRone 2021-0 Yes [id number] 30mg Take 1 Un matt 30 mg 4-12 tablet by ity of tablet 00:00: mouth 2 (two) Medical times Branch daily. SERTraline 0 Yes [id number] 200mg Take 2 [facility] 100 mg 4-12 tablets by ity of tablet 00:00: mouth [place] 00 daily. Medical Branch buPROPion 0 Yes [id number] 150mg Take 1 U nivers XL 4-12 tablet by ity of (WELLBUTRIN 00:00: mouth [place] XL) 150 mg 00 daily. Medical 24 hr Branch tablet busPIRone 2021-0 Yes [id number] 30mg Take 1 Un matt 30 mg 4-12 tablet by ity of tablet 00:00: mouth 2 00 (two) Medical times Branch daily. SERTraline 2021-0 Yes [id number] 200mg Take 2 [facility] 100 mg 4-12 tablets by ity of tablet 00:00: mouth [place] 00 daily. Medical Branch buPROPion 2021-0 Yes [id number] 150mg Take 1 U nivers XL 4-12 tablet by ity of (WELLBUTRIN 00:00: mouth [place] XL) 150 mg 00 daily. Medical 24 hr Branch tablet busPIRone 2021-0 Yes [id number] 30mg Take 1 Un matt 30 mg 4-12 tablet by ity of tablet 00:00: mouth 2 00 (two) Medical times Branch daily. SERTraline 2021-0 Yes [id number] 200mg Take 2 [facility] 100 mg 4-12 tablets by ity of tablet 00:00: mouth [place] 00 daily. Medical Branch buPROPion 2021-0 Yes [id number] 150mg Take 1 U nivers XL 4-12 tablet by ity of (WELLBUTRIN 00:00: mouth [place] XL) 150 mg 00 daily. Medical 24 hr Branch tablet busPIRone 2021-0 Yes [id number] 30mg Take 1 Un matt 30 mg 4-12 tablet by ity of tablet 00:00: mouth 2 [place] 00 (two) Medical times Branch daily. SERTraline 2021-0 Yes [id number] 200mg Take 2 [facility] 100 mg 4-12 tablets by ity of tablet 00:00: mouth [place] 00 daily. Medical Branch buPROPion 2021-0 Yes [id number] 150mg Take 1 U nivers XL 4-12 tablet by ity of (WELLBUTRIN 00:00: mouth [place] XL) 150 mg 00 daily. Medical 24 hr Branch tablet busPIRone 2021-0 Yes [id number] 30mg Take 1 Un matt 30 mg 4-12 tablet by ity of tablet 00:00: mouth 2 [place] (two) Medical times Branch daily. SERTraline 2021-0 Yes [id number] 200mg Take 2 [facility] 100 mg 4-12 tablets by ity of tablet 00:00: mouth [place] 00 daily. Medical Branch buPROPion 2021-0 Yes [id number] 150mg Take 1 U nivers XL 4-12 tablet by ity of (WELLBUTRIN 00:00: mouth [place] XL) 150 mg 00 daily. Medical 24 hr Branch tablet busPIRone 2021-0 Yes [id number] 30mg Take 1 Un matt 30 mg 4-12 tablet by ity of tablet 00:00: mouth 2 [place] 00 (two) Medical times Branch daily. SERTraline 2021-0 Yes [id number] 200mg Take 2 [facility] 100 mg 4-12 tablets by ity of tablet 00:00: mouth [place] 00 daily. Medical Branch buPROPion 2021-0 Yes [id number] 150mg Take 1 U nivers XL 4-12 tablet by ity of (WELLBUTRIN 00:00: mouth [place] XL) 150 mg 00 daily. Medical 24 hr Branch tablet busPIRone 2021-0 Yes [id number] 30mg Take 1 Un matt 30 mg 4-12 tablet by ity of tablet 00:00: mouth 2 [place] 00 (two) Medical times Branch daily. SERTraline 2021-0 Yes [id number] 200mg Take 2 [facility] 100 mg 4-12 tablets by ity of tablet 00:00: mouth [place] 00 daily. Medical Branch buPROPion 2021-0 Yes [id number] 150mg Take 1 U nivers XL 4-12 tablet by ity of (WELLBUTRIN 00:00: mouth [place] XL) 150 mg 00 daily. Medical 24 hr Branch tablet busPIRone 2021-0 Yes [id number] 30mg Take 1 Un amtt 30 mg 4-12 tablet by ity of tablet 00:00: mouth 2 [place] 00 (two) Medical times Branch daily. SERTraline 2021-0 Yes [id number] 200mg Take 2 [facility] 100 mg 4-12 tablets by ity of tablet 00:00: mouth [place] 00 daily. Medical Branch buPROPion 2021-0 Yes [id number] 150mg Take 1 U nivers XL 4-12 tablet by ity of (WELLBUTRIN 00:00: mouth [place] XL) 150 mg 00 daily. Medical 24 hr Branch tablet busPIRone 2021-0 Yes [id number] 30mg Take 1 Un matt 30 mg 4-12 tablet by ity of tablet 00:00: mouth 2 00 (two) Medical times Branch daily. SERTraline 2021-0 Yes [id number] 200mg Take 2 [facility] 100 mg 4-12 tablets by ity of tablet 00:00: mouth [place] 00 daily. Medical Branch buPROPion 2021-0 Yes [id number] 150mg Take 1 U nivers XL 4-12 tablet by ity of (WELLBUTRIN 00:00: mouth [place] XL) 150 mg 00 daily. Medical 24 hr Branch tablet busPIRone 2021-0 Yes [id number] 30mg Take 1 Un matt 30 mg 4-12 tablet by ity of tablet 00:00: mouth 2 [place] 00 (two) Medical times Branch daily. SERTraline 2021-0 Yes [id number] 200mg Take 2 [facility] 100 mg 4-12 tablets by ity of tablet 00:00: mouth [place] 00 daily. Medical Branch buPROPion 2021-0 Yes [id number] 150mg Take 1 U nivers XL 4-12 tablet by ity of (WELLBUTRIN 00:00: mouth [place] XL) 150 mg 00 daily. Medical 24 hr Branch tablet busPIRone 2021-0 Yes [id number] 30mg Take 1 Un matt 30 mg 4-12 tablet by ity of tablet 00:00: mouth 2 [place] 00 (two) Medical times Branch daily. SERTraline 2021-0 Yes [id number] 200mg Take 2 [facility] 100 mg 4-12 tablets by ity of tablet 00:00: mouth [place] 00 daily. Medical Branch buPROPion 2021-0 Yes [id number] 150mg Take 1 U nivers XL 4-12 tablet by ity of (WELLBUTRIN 00:00: mouth [place] XL) 150 mg 00 daily. Medical 24 hr Branch tablet busPIRone 2021-0 Yes [id number] 30mg Take 1 Un matt 30 mg 4-12 tablet by ity of tablet 00:00: mouth 2 [place] 00 (two) Medical times Branch daily. SERTraline 0 Yes [id number] 200mg Take 2 [facility] 100 mg 4-12 tablets by ity of tablet 00:00: mouth [place] 00 daily. Medical Branch buPROPion 2021-0 Yes [id number] 150mg Take 1 U nivers XL 4-12 tablet by ity of (WELLBUTRIN 00:00: mouth [place] XL) 150 mg 00 daily. Medical 24 hr Branch tablet busPIRone 2021-0 Yes [id number] 30mg Take 1 Un matt 30 mg 4-12 tablet by ity of tablet 00:00: mouth 2 [place] 00 (two) Medical times Branch daily. SERTraline 2021-0 Yes [id number] 200mg Take 2 [facility] 100 mg 4-12 tablets by ity of tablet 00:00: mouth [place] 00 daily. Medical Branch buPROPion 2021-0 Yes [id number] 150mg Take 1 U nivers XL 4-12 tablet by ity of (WELLBUTRIN 00:00: mouth [place] XL) 150 mg 00 daily. Medical 24 hr Branch tablet busPIRone 2021-0 Yes [id number] 30mg Take 1 Un matt 30 mg 4-12 tablet by ity of tablet 00:00: mouth 2 [place] 00 (two) Medical times Branch daily. SERTraline 2021-0 Yes [id number] 200mg Take 2 Univers 100 mg 4-12 tablets by ity of tablet 00:00: mouth [place] 00 daily. Medical Branch raltegravir 2022-0 Yes [id number] 400mg Take 1 Univers (ISENTRESS) 3-28 tablet by ity of 400 mg 00:00: mouth 2 [place] tablet 00 (two) Medical times Branch daily. raltegravir 2-0 Yes [id number] 400mg Take 1 Univers (ISENTRESS) 3-28 tablet by ity of 400 mg 00:00: mouth 2 [place] tablet 00 (two) Medical times Branch daily. raltegravir 2-0 Yes [id number] 400mg Take 1 Univers (ISENTRESS) 3-28 tablet by ity of 400 mg 00:00: mouth 2 [place] tablet 00 (two) Medical times Branch daily. raltegravir 2021-0 Yes [id number] 400mg Take 1 Univers (ISENTRESS) 3-28 tablet by ity of 400 mg 00:00: mouth 2 [place] tablet 00 (two) Medical times Branch daily. raltegravir 2021-0 Yes [id number] 400mg Take 1 Univers (ISENTRESS) 3-28 tablet by ity of 400 mg 00:00: mouth 2 [place] tablet 00 (two) Medical times Branch daily. raltegravir 2021-0 Yes [id number] 400mg Take 1 Univers (ISENTRESS) 3-28 tablet by ity of 400 mg 00:00: mouth 2 [place] tablet 00 (two) Medical times Branch daily. raltegravir 2021-0 Yes [id number] 400mg Take 1 Univers (ISENTRESS) 3-28 tablet by ity of 400 mg 00:00: mouth 2 [place] tablet 00 (two) Medical times Branch daily. raltegravir 2-0 Yes [id number] 400mg Take 1 Univers (ISENTRESS) 3-28 tablet by ity of 400 mg 00:00: mouth 2 [place] tablet 00 (two) Medical times Branch daily. raltegravir 2-0 Yes [id number] 400mg Take 1 Univers (ISENTRESS) 3-28 tablet by ity of 400 mg 00:00: mouth 2 [place] tablet 00 (two) Medical times Branch daily. raltegravir 2-0 Yes [id number] 400mg Take 1 Univers (ISENTRESS) 3-28 tablet by ity of 400 mg 00:00: mouth 2 [place] tablet 00 (two) Medical times Branch daily. raltegravir 2-0 Yes [id number] 400mg Take 1 Univers (ISENTRESS) 3-28 tablet by ity of 400 mg 00:00: mouth 2 [place] tablet 00 (two) Medical times Branch daily. raltegravir 2021-0 Yes [id number] 400mg Take 1 Univers (ISENTRESS) 3-28 tablet by ity of 400 mg 00:00: mouth 2 [place] tablet 00 (two) Medical times Branch daily. raltegravir 2021-0 Yes [id number] 400mg Take 1 Univers (ISENTRESS) 3-28 tablet by ity of 400 mg 00:00: mouth 2 [place] tablet 00 (two) Medical times Branch daily. raltegravir 2021-0 Yes [id number] 400mg Take 1 Univers (ISENTRESS) 3-28 tablet by ity of 400 mg 00:00: mouth 2 [place] tablet 00 (two) Medical times Branch daily. raltegravir 2021-0 Yes [id number] 400mg Take 1 Univers (ISENTRESS) 3-28 tablet by ity of 400 mg 00:00: mouth 2 [place] tablet 00 (two) Medical times Branch daily. raltegravir 2021-0 Yes [id number] 400mg Take 1 Univers (ISENTRESS) 3-28 tablet by ity of 400 mg 00:00: mouth 2 [place] tablet 00 (two) Medical times Branch daily. raltegravir 2021-0 Yes [id number] 400mg Take 1 Univers (ISENTRESS) 3-28 tablet by ity of 400 mg 00:00: mouth 2 [place] tablet 00 (two) Medical times Branch daily. raltegravir 2021-0 Yes [id number] 400mg Take 1 Univers (ISENTRESS) 3-28 tablet by ity of 400 mg 00:00: mouth 2 [place] tablet 00 (two) Medical times Branch daily. LORazepam 1 2021-0 2021- No [id number] 1mg Take 1 Univers mg tablet 3-21 [...] times a tablet day. emtricitabi 202- No [id number] Take one [facility] ne-tenofovi -20 09-12 po daily ity of r alafen 00:00: 00:00 [place] (DESCOVY) 00 :00 Medical tablet Branch metoprolol Yes [id number] Take 1 [place] tartrate 7-26 tablet Health (Lopressor) 00:00: (100 mg 100 MG 00 total) by tablet mouth 2 (two) times a day AND 0.5 tablets (50 mg total) every night. metoprolol Yes [id number] Take 1 [place] tartrate 7-26 tablet Health [...] (affected area in groin) hydrALAZINE Yes 50mg Q.[id number] Take 50 mg [facility] (APRESOLINE 7-19 [id number] [address] mouth [facility] ) 50 MG [...] (affected area in groin) hydrALAZINE Yes 50mg Q.[id number] Take 50 mg [facility] (APRESOLINE 7-19 [id number] [address] mouth [facility] ) 50 MG [...] (affected area in groin) hydrALAZINE Yes 50mg Q.[id number] Take 50 mg [facility] (APRESOLINE 7-19 [id number] mouth [facility] ) 50 MG [...] area in groin) hydrALAZINE 0 Yes 50mg Q.[id number] Take 50 mg [facility] (APRESOLINE 7-19 [id number] [address] mouth [facility] ) 50 MG [...] area in groin) hydrALAZINE 0 Yes 50mg Q.[id number] Take 50 mg [facility] (APRESOLINE 7-19 [id number] [address] mouth [facility] ) 50 MG [...] (affected area in groin) hydrALAZINE Yes 50mg Q.[id number] Take 50 mg [facility] (APRESOLINE 7-19 [id number] [address] mouth [facility] ) 50 MG [...] (affected area in groin) hydrALAZINE Yes 50mg Q.[id number] Take 50 mg [facility] (APRESOLINE 7-19 [id number] [facility] mouth [facility] ) 50 MG [...] area in groin) hydrALAZINE 0 Yes 50mg Q.[id number] Take 50 mg [facility] (APRESOLINE 7-19 [id number] [facility] mouth [facility] ) 50 MG [...] (affected area in groin) hydrALAZINE Yes 50mg Q.[id number] Take 50 mg [facility] (APRESOLINE 7-19 [id number] mouth [facility] ) 50 MG [...] (affected area in groin) hydrALAZINE Yes 50mg Q.[id number] Take 50 mg [facility] (APRESOLINE 7-19 [id number] [address] mouth [facility] ) 50 MG [...] area in groin) hydrALAZINE 0 Yes 50mg Q.[id number] Take 50 mg [facility] (APRESOLINE 7-19 [id number] mouth [facility] ) 50 MG [...] (affected area in groin) hydrALAZINE Yes 50mg Q.[id number] Take 50 mg [facility] (APRESOLINE 7-19 [id number] mouth [facility] ) 50 MG [...] (affected area in groin) hydrALAZINE Yes 50mg Q.[id number] Take 50 mg [facility] (APRESOLINE 7-19 [id number] [address] mouth [facility] ) 50 MG [...] (affected area in groin) hydrALAZINE Yes 50mg Q.[id number] Take 50 mg [facility] (APRESOLINE 7-19 [id number] [address] mouth 3 [facility] ) 50 MG [...] area in groin) hydrALAZINE 0 Yes 50mg Q.[id number] Take 50 mg [facility] (APRESOLINE 7-19 [id number] mouth [facility] [address] ) 50 MG [...] (affected area in groin) hydrALAZINE Yes 50mg Q.[id number] Take 50 mg [facility] (APRESOLINE 7-[id number] [address] mouth [facility] ) 50 MG [...] area in groin) hydrALAZINE 0 Yes 50mg Q.[id number] Take 50 mg [facility] (APRESOLINE 7-[id number] mouth [facility] [address] ) 50 MG [...] area in groin) hydrALAZINE 0 Yes 50mg Q.[id number] Take 50 mg [facility] (APRESOLINE 7-19 [id number] [address] mouth [facility] ) 50 MG [...] (affected area in groin) hydrALAZINE Yes 50mg Q.[id number] Take 50 mg [facility] (APRESOLINE 7-19 [id number] mouth [facility] [address] ) 50 MG [...] area in groin) hydrALAZINE 0 Yes 50mg Q.[id number] Take 50 mg [facility] (APRESOLINE 7-19 [id number] [address] mouth [facility] ) 50 MG [...] area in groin) hydrALAZINE 0 Yes 50mg Q.[id number] Take 50 mg [facility] (APRESOLINE 7-19 [id number] mouth [facility] ) 50 MG [...] (affected area in groin) hydrALAZINE Yes 50mg Q.[id number] Take 50 mg [facility] (APRESOLINE 7-19 [id number] mouth 3 [address] ) 50 MG [...] (affected area in groin) hydrALAZINE Yes 50mg Q.[id number] Take 50 mg [facility] (APRESOLINE 7-[id number] mouth [address] ) 50 MG [...] area in groin) hydrALAZINE 0 Yes 50mg Q.[id number] Take 50 mg [facility] (APRESOLINE 7-19 [id number] [address] mouth [facility] ) 50 MG [...] (affected area in groin) hydrALAZINE Yes 50mg Q.[id number] Take 50 mg [facility] (APRESOLINE 7-[id number] mouth [facility] [address] ) 50 MG [...] (affected area in groin) hydrALAZINE Yes 50mg Q.[id number] Take 50 mg [facility] (APRESOLINE 7-[id number] mouth [facility] [address] ) 50 MG [...] area in groin) hydrALAZINE 0 Yes 50mg Q.[id number] Take 50 mg [facility] (APRESOLINE 7-[id number] mouth [facility] [address] ) 50 MG [...] (affected area in groin) hydrALAZINE Yes 50mg Q.[id number] Take 50 mg [facility] (APRESOLINE 7-[id number] mouth [facility] [address] ) 50 MG [...] (affected area in groin) hydrALAZINE Yes 50mg Q.[id number] Take 50 mg [facility] (APRESOLINE 7-[id number] mouth [address] ) 50 MG [...] area in groin) hydrALAZINE 0 Yes 50mg Q.[id number] Take 50 mg [facility] (APRESOLINE 7-[id number] mouth [address] ) 50 MG [...] area in groin) hydrALAZINE 0 Yes 50mg Q.[id number] Take 50 mg [facility] (APRESOLINE 7-[id number] mouth [facility] ) 50 MG [...] [facility] tablet 25 l nystatin-tr 2021-0 Yes [id number] Apply to [facility] iamcinolone 7-06 area(s) 3 ity of cream 00:00: (three) [place] 00 times Medical daily. Branch nystatin-tr 2021-0 Yes [id number] Apply to [facility] iamcinolone 7-06 area(s) 3 ity of cream 00:00: (three) [place] 00 times Medical daily. Branch nystatin-tr 2021-0 Yes [id number] Apply to Univers iamcinolone 7-06 area(s) 3 ity of cream 00:00: (three) [place] 00 times Medical daily. Branch nystatin-tr 2021-0 Yes [id number] Apply to [facility] iamcinolone 7-06 area(s) 3 ity of cream 00:00: (three) [place] 00 times Medical daily. Branch nystatin-tr 2021-0 Yes [id number] Apply to [facility] iamcinolone 7-06 area(s) 3 ity of cream 00:00: (three) [place] 00 times Medical daily. Branch nystatin-tr 2021-0 Yes [id number] Apply to Univers iamcinolone 7-06 area(s) 3 ity of cream 00:00: (three) [place] 00 times Medical daily. Branch nystatin-tr 2021-0 Yes [id number] Apply to Univers iamcinolone 7-06 area(s) 3 ity of cream 00:00: (three) [place] 00 times Medical daily. Branch nystatin-tr 2021-0 Yes [id number] Apply to [facility] iamcinolone 7-06 area(s) 3 ity of cream 00:00: (three) [place] 00 times Medical daily. Branch nystatin-tr 2021-0 Yes [id number] Apply to Univers iamcinolone 7-06 area(s) 3 ity of cream 00:00: (three) [place] 00 times Medical daily. Branch nystatin-tr 2021-0 Yes [id number] Apply to [facility] iamcinolone 7-06 area(s) 3 ity of cream 00:00: (three) [place] 00 times Medical daily. Branch nystatin-tr 2021-0 Yes [id number] Apply to Univers iamcinolone 7-06 area(s) 3 ity of cream 00:00: (three) [place] 00 times Medical daily. Branch nystatin-tr 2020-0 Yes [id number] Apply to Univers iamcinolone 7-06 area(s) 3 ity of cream 00:00: (three) [place] 00 times Medical daily. Branch nystatin-tr 2020-0 Yes [id number] Apply to Univers iamcinolone 7-06 area(s) 3 ity of cream 00:00: (three) [place] 00 times Medical daily. Branch nystatin-tr 2020-0 Yes [id number] Apply to Univers iamcinolone 7-06 area(s) 3 ity of cream 00:00: (three) [place] 00 times Medical daily. Branch nystatin-tr 2020-0 Yes [id number] Apply to Univers iamcinolone 7-06 area(s) 3 ity of cream 00:00: (three) [place] 00 times Medical daily. Branch nystatin-tr 2020-0 Yes [id number] Apply to [facility] iamcinolone 7-06 area(s) 3 ity of cream 00:00: (three) [place] 00 times Medical daily. Branch nystatin-tr 2020-0 Yes [id number] Apply to [facility] iamcinolone 7-06 area(s) 3 ity of cream 00:00: (three) [place] 00 times Medical daily. Branch nystatin-tr 2020-0 Yes [id number] Apply to [facility] iamcinolone 7-06 area(s) 3 ity of cream 00:00: (three) [place] 00 times Medical daily. Branch budesonide- 2020-0 2020- No 1{puff} QD Inhale 1 [facility] formoteroL 6-25 06-[address] (SYMBICORT) 14:37: 00:00 morning. H ospita 160-4.5 02 :00 l mcg/actuati on inhaler hydrALAZINE Yes [id number] 50mg Q.[id number] Take 1 [place] (Apresoline 6-11 [id number] tablet (50 Health ) 50 MG 00:00: 3D mg total) tablet 00 by mouth 3 (three) times a day. hydrALAZINE Yes [id number] 50mg Q.[id number] Take 1 [place] (Apresoline 10-31 [id number] tablet (50 Health ) 50 MG 00:00: [...] % 00:00: ointment 00 nystatin 2020- No [id number] Q.25D Take 5 mL [facility] (MYCOSTATIN 10-06 [...] e 4-10 Tablet l 14:00: should not [place] 00 be chewed or crushed. (Same as: Protonix) Amiodarone No Notes: Memor ia 4-10 (Same as: l 14:00: Cordarone) [place] 00 Amlodipine No Notes: Memor ia 4-10 (Same as: l 14:00: Norvasc) [place] emtricitabi No Notes: Caesar lisa ne 200 [...] ia 4-10 (Same as: l 14:00: Cordarone) [place] 00 Amlodipine No Notes: Memor ia 4-10 (Same as: l 14:00: Norvasc) [place] 00 emtricitabi No Notes: Caesar lisa ne 200 MG / 4-10 (Same as: l tenofovir 14:00: Descovy) Herm ariel alafenamide 00 Non-formul 25 MG Oral nancy Tablet [Descovy] Sertraline No Notes: Memor ia 4-10 (Same as: l 14:00: Zoloft) Marty 00 pantoprazol No Notes: Caesar lisa e 4-10 Tablet l 14:00: should not [place] 00 be chewed or crushed. (Same as: Protonix) Amiodarone No Notes: Memor ia 4-10 (Same as: l 14:00: Cordarone) [place] 00 Amlodipine No Notes: Memor ia 4-10 (Same as: l 14:00: Norvasc) [place] emtricitabi No Notes: Caesar lisa ne 200 MG / 4-10 (Same as: l tenofovir 14:00: Descovy) Herm ariel alafenamide 00 Non-formul 25 MG Oral nancy Tablet [Descovy] Sertraline No Notes: Memor ia 4-10 (Same as: l 14:00: Zoloft) [place] 00 pantoprazol No Notes: [place] lisa e 4-10 Tablet l 14:00: should not [place] 00 be chewed or crushed. (Same as: [...] ia 4-10 (Same as: l 14:00: Zoloft) [place] 00 pantoprazol No Notes: [place] lisa e 4-10 Tablet l 14:00: should not [place] 00 be chewed or crushed. (Same as: [...] e 4-10 Tablet l 14:00: should not [place] 00 be chewed or crushed. (Same as: Protonix) Amiodarone No Notes: Memor ia 4-10 (Same as: l 14:00: Cordarone) Amlodipine No Notes: Memor ia 4-10 (Same as: l 14:00: Norvasc) emtricitabi No Notes: [place] lisa ne 200 MG / 4-10 (Same as: l tenofovir 14:00: Descovy) Herm alafenamide 00 Non-formul 25 MG Oral nancy Tablet [Descov] Sertraline No Notes: Memor ia 4-10 (Same as: l 14:00: Zoloft) pantoprazol No Notes: [place] lisa e 4-10 Tablet l 14:00: should not [place] 00 be chewed or crushed. (Same as: [...] Memoria 4-10 Same as: l 02:00: Eliquis [place] Hydralazine No Notes: Caesar lisa Hydrochlori 4-10 (Same as: l de 50 MG 02:00: Apresoline Her mitchell Oral Tablet 00 ) May interfere w/enteral feedings Take With Food Sucralfate No Notes: May M emoria 4-10 interfere l 02:00: w/enteral [place] 00 feeds - Take 1 hr before [...] Memoria 4-10 Same as: l 02:00: Eliquis [place] Hydralazine No Notes: Caesar lisa Hydrochlori 4-10 (Same as: l de 50 MG 02:00: Apresoline Her mitchell Oral Tablet 00 ) May interfere w/enteral feedings Take With Food Sucralfate No Notes: May M emoria 4-10 interfere l 02:00: w/enteral [place] 00 feeds - Take 1 hr before or 2 hr after antacids, dairy pdt, meals & minerals - On empty stomach. For patients unable to swallow tablet, dissolve in 10mL - 30mL of water or juice and stir before giving. (Same As: Carafate) Saline No Notes: Memoria Flush 0.9% 4-10 (Same as: l 02:00: BD [place] 00 Posiflush) Eliquis No Notes: Memoria 4-10 Same as: l 02:00: Eliquis [place] Hydralazine No Notes: Caesar lisa Hydrochlori 4-10 [...] Memoria 4-10 Same as: l 02:00: Eliquis [place] Hydralazine No Notes: Caesar lisa Hydrochlori 4-10 [...] not exceed l #3 00:12: 4gm/day of [place] acetaminop hen. (Same as: Tylenol with Codeine # 3) acetaminoph No Notes: Do M emoria en-codeine 4-10 not exceed l #3 00:12: 4gm/day of [place] acetaminop hen. (Same as: Tylenol with Codeine # 3) acetaminoph No Notes: Do M emoria en-codeine 4-10 not exceed l #3 00:12: 4gm/day of [place] acetaminop hen. (Same as: Tylenol with Codeine [...] tartrate 4-09 tab, l 22:00: Route: PO, [place] Drug form: TAB, BID, Dosing Weight 97.273, [...] oria 4-09 tab, l 22:00: Route: PO, [place] 00 Drug form: TAB, BID, Dosing Weight [...] oria 08-29 tab, l 22:00: Route: PO, [place] 00 Drug form: TAB, BID, Dosing Weight [...] oria 4-09 tab, l 22:00: Route: PO, [place] Drug form: TAB, BID, Dosing Weight 97.273, [...] Notes: Memoria 4-09 (Same l 17:07: as:MORPhin [place] 00 e Sulfate) Morphine No Notes: Memoria 4-09 (Same l 17:07: as:MORPhin [place] 00 e Sulfate) Morphine No Notes: Memoria 4-09 (Same l 17:07: as:MORPhin [place] 00 e Sulfate) Morphine No Notes: Memoria [...] ONCE, Stop date: 08/29/20 10:40:00 CDT pantoprazol 2020- Yes 40 mg = 1 M emoria e 40 mg 4-09 tab, PO, l oral 15:27: Daily, # Marty enteric 00 30 tab, 0 coated Refill(s), tablet [facility]: [facility], 162.56, cm, 08/29/20 5:30:00 CDT, Height, 97.273, kg, 08/29/20 5:30:00 CDT, Weight pantoprazol 2021-0 Yes 40 mg = 1 M emoria e 40 mg 4-09 tab, PO, l oral 15:27: Daily, # [place] enteric 00 30 tab, 0 coated Refill(s), tablet [facility]: [facility], 162.56, cm, 08/29/20 5:30:00 CDT, Height, 97.273, kg, 08/29/20 5:30:00 CDT, Weight pantoprazol 2021-0 Yes 40 mg = 1 M emoria e 40 mg 4-09 tab, PO, l oral 15:27: Daily, # [place] enteric 00 30 tab, 0 coated Refill(s), tablet Pharm[facility]: [facility] [place], 162.56, cm, 08/29/20 5:30:00 CDT, Height, 97.273, kg, 08/29/20 5:30:00 CDT, Weight pantoprazol 2021-0 Yes 40 mg = 1 M emoria e 40 mg 4-09 tab, PO, l oral 15:27: Daily, # [place] enteric 00 30 tab, 0 coated Refill(s), tablet Pharm[facility]: [facility] 149, 162.56, cm, 08/29/20 5:30:00 CDT, Height, 97.273, kg, 08/29/20 5:30:00 CDT, Weight pantoprazol 2021-0 Yes 40 mg = 1 M emoria e 40 mg 4-09 tab, PO, l oral 15:27: Daily, # [place] enteric 00 30 tab, 0 coated Refill(s), tablet Pharm[facility]: [facility] 149, 162.56, cm, 08/29/20 5:30:00 CDT, Height, 97.273, kg, 08/29/20 5:30:00 CDT, Weight pantoprazol 2021-0 Yes 40 mg = 1 M emoria e 40 mg 4-09 tab, PO, l oral 15:27: Daily, # [place] enteric 00 30 tab, 0 coated Refill(s), tablet Pharmacy: [facility] 149, 162.56, cm, 08/29/20 5:30:00 CDT, Height, 97.273, kg, 08/29/20 5:30:00 CDT, Weight pantoprazol 2020-0 Yes 40 mg = 1 M emoria e 40 mg 4-09 tab, PO, l oral 15:27: Daily, # [place] enteric 00 30 tab, 0 coated Refill(s), tablet Pharmacy: [facility] [place], 162.56, cm, 08/29/20 5:30:00 CDT, Height, 97.273, kg, 08/29/20 5:30:00 CDT, Weight pantoprazol 2020-0 No 40 mg = 1 M emoria e 40 mg 4-09 tab, PO, l oral 15:26: Daily, # [place] enteric 00 30 tab, 0 coated Refill(s) tablet sucralfate 2020-0 Yes 1 gm = 1 Mem oria 1 g oral 4-09 tab, PO, l tablet 15:26: Q12H, # 28 Skylar nn 00 tab, 0 Refill(s), Pharmacy: [place] [id number], 162.56, cm, 08/29/20 5:30:00 CDT, Height, 97.273, [...] Skylar nn 00 tab, 0 Refill(s), Pharmacy: [facility] 149, 162.56, cm, 08/29/20 [...] Skylar nn 00 tab, 0 Refill(s), Pharmacy: [facility] 149, 162.56, cm, 08/29/20 5:30:00 CDT, Height, 97.273, kg, 08/29/20 5:30:00 CDT, Weight pantoprazol 2020-0 No 40 mg = 1 M emoria e 40 mg 4-09 tab, PO, l oral 15:26: Daily, # [place] enteric 00 30 tab, 0 coated Refill(s) tablet sucralfate 2020-0 Yes 1 gm = 1 Mem oria 1 g oral 4-09 tab, PO, l tablet 15:26: Q12H, # 28 Skylar nn 00 tab, 0 Refill(s), Pharmacy: [facility] 149, 162.56, cm, 08/29/20 [...] Skylar nn 00 tab, 0 Refill(s), Pharmacy: [facility] 149, 162.56, cm, 08/29/20 5:30:00 CDT, Height, 97.273, kg, 08/29/20 5:30:00 CDT, Weight pantoprazol 2020-0 No 40 mg = 1 M emoria e 40 mg 4-09 tab, PO, l oral 15:26: Daily, # [place] enteric 00 30 tab, 0 coated Refill(s) tablet sucralfate 2020-0 Yes 1 gm = 1 Mem oria 1 g oral 4-09 tab, PO, l tablet 15:26: Q12H, # 28 Skylar nn 00 tab, 0 Refill(s), Pharmacy: [facility] 149, 162.56, cm, 08/29/20 5:30:00 CDT, Height, 97.273, kg, 08/29/20 5:30:00 CDT, Weight pantoprazol No 40 mg = 1 M emoria e 40 mg 4-09 tab, PO, l oral 15:26: Daily, # [place] enteric 00 30 tab, 0 coated Refill(s) tablet sucralfate Yes 1 gm = 1 Mem oria 1 g oral 4-09 tab, PO, l tablet 15:26: Q12H, # 28 Skylar nn 00 tab, 0 Refill(s), Pharmacy: [facility] 149, 162.56, cm, 08/29/20 5:30:00 CDT, Height, 97.273, kg, 08/29/20 5:30:00 CDT, Weight Saline No Notes: Memoria Flush 0.9% 4-09 (Same as: l 15:25: BD [place] 00 Posiflush) Lorazepam No Notes: Memori a 4-09 (Same as: l 15:25: Ativan) Saline No Notes: Memoria Flush 0.9% 4-09 (Same as: l 15:25: BD [place] 00 Posiflush) Lorazepam No Notes: Memori a 4-09 (Same as: l 15:25: Ativan) Marty Saline No Notes: Memoria Flush 0.9% 4-09 (Same as: l 15:25: BD [place] 00 Posiflush) Saline No Notes: Memoria Flush 0.9% 4-09 (Same as: l 15:25: BD [place] 00 Posiflush) Lorazepam No Notes: Memori a 4-09 (Same as: l 15:25: Ativan) [place] Lorazepam No Notes: Memori a 4-09 (Same as: l 15:25: Ativan) Marty Saline No Notes: Memoria Flush 0.9% 4-09 (Same as: l 15:25: BD [place] Posiflush) Lorazepam No Notes: Memori a 4-09 (Same as: l 15:25: Ativan) [place] 00 Saline No Notes: Memoria Flush 0.9% 4-09 (Same as: l 15:25: BD [place] Posiflush) Lorazepam No Notes: Memori a 4-09 (Same as: l 15:25: Ativan) [place] 00 Saline No Notes: Memoria Flush 0.9% 4-09 (Same as: l 15:25: BD [place] Posiflush) Lorazepam No Notes: Memori a 4-09 (Same as: l 15:25: Ativan) Isuprel HCl No Route: IV, Memoria (ANES) 0.2 08-29 Drug form: l mg + 15:00: INJ, Marty 00 Dosing Weight 97.3, kg, Start date: 08/29/20 10:00:00 CDT, Stop date: 08/29/20 11:00:00 CDT Isuprel HCl No Route: IV, Memoria (ANES) 0.2 08-29 Drug form: l mg + 15:00: INJ, [place] Dosing Weight 97.3, kg, Start date: 08/29/20 10:00:00 CDT, Stop date: 08/29/20 11:00:00 CDT Isuprel HCl No Route: IV, Memoria (ANES) 0.2 08-29 Drug form: l mg + 15:00: INJ, [place] Dosing Weight 97.3, kg, Start date: 08/29/20 10:00:00 CDT, Stop date: 08/29/20 11:00:00 CDT Isuprel HCl No Route: IV, Memoria (ANES) 0.2 08-29 Drug form: l mg + 15:00: INJ, [place] Dosing Weight 97.3, kg, Start date: 08/29/20 10:00:00 CDT, Stop date: 08/29/20 11:00:00 CDT Isuprel HCl 2020-0 No Route: IV, Memoria (ANES) 0.2 08-29 Drug form: l mg + 15:00: INJ, [place] 00 Dosing Weight 97.3, kg, Start date: [...] Drug form: l mg + 15:00: INJ, [place] 00 Dosing Weight 97.3, kg, Start date: [...] 08-29 Route: PO, l 14:01: Drug form: [place] 00 TAB, ONCE, Dosing Weight 97.273, kg, [...] Memori a 08-29 Route: l 14:01: IVP, [place] 00 Q2MIN, Dosing Weight 97.273, kg, PRN Narcotic Reversal, Start date: 08/29/20 9:01:00 CDT, Duration: 8 doses or times, Stop date: Limited # of times Ondansetron 2020-0 No 4 mg, Memor ia 08-29 Route: l 14:01: IVP, ONCE, [place] 00 Dosing Weight 97.273, kg, PRN Nausea [...] 08-29 Route: PO, l 14:01: Drug form: [place] 00 TAB, ONCE, Dosing Weight 97.273, kg, [...] Memori a 08-29 Route: l 14:01: IVP, [place] 00 Q5Min, Dosing Weight 97.273, kg, PRN Elevated BP, Start date: 08/29/20 9:01:00 CDT, Duration: 5 doses or times, Stop date: Limited # of times Acetaminoph 1-0 No 1,000 mg, M emoria en 08-29 Route: PO, l 14:01: Drug form: [place] 00 TAB, ONCE, Dosing Weight 97.273, kg, [...] oria ne 08-29 Route: l 14:01: IVP, [place] 00 Q5Min, Dosing Weight 97.273, kg, PRN [...] Memori a 08-29 Route: l 14:01: IVP, [place] 00 Q2MIN, Dosing Weight 97.273, kg, PRN [...] Memori a 08-29 Route: l 14:01: IVP, [place] 00 Q5Min, Dosing Weight 97.273, kg, PRN Elevated BP, Start date: 08/29/20 9:01:00 CDT, Duration: 5 doses or times, Stop date: Limited # of times Acetaminoph 2021-0 No 1,000 mg, M emoria en 08-29 Route: PO, l 14:01: Drug form: [place] 00 TAB, ONCE, Dosing Weight 97.273, kg, [...] oria ne 08-29 Route: l 14:01: IVP, [place] 00 Q5Min, Dosing Weight 97.273, kg, PRN [...] ia 08-29 Route: l 14:01: IVP, ONCE, [place] 00 Dosing Weight 97.273, kg, PRN Nausea & Vomiting, Start date: 08/29/20 9:01:00 CDT Labetalol 2020-0 No 10 mg, Memori a 08-29 Route: l 14:01: IVP, [place] 00 Q5Min, Dosing Weight 97.273, kg, PRN [...] lisa 08-29 Route: l 14:01: IVP, PRN, [place] 00 Dosing Weight 97.273, kg, PRN Benzodiaze [...] Memori a 08-29 Route: l 14:01: IVP, [place] 00 Q5Min, Dosing Weight 97.273, kg, PRN Elevated BP, Start date: 08/29/20 9:01:00 CDT, Duration: 5 doses or times, Stop date: Limited # of times Acetaminoph 1-0 No 1,000 mg, M emoria en 08-29 Route: PO, l 14:01: Drug form: [place] 00 TAB, ONCE, Dosing Weight 97.273, kg, [...] Drug form: l 10 13:15: INJ, Start [place] microgram date: 08/29/20 8:15:00 CDT, Stop date: 08/29/20 9:15:00 CDT norepinephr 2020-0 No Route: IV, Memoria ine (ANES) 08-29 Drug form: l 10 13:15: INJ, Start Marty microgram date: 08/29/20 8:15:00 CDT, Stop date: 08/29/20 9:15:00 CDT norepinephr 2020-0 No Route: IV, Memoria ine (ANES) 08-29 Drug form: l 10 13:15: INJ, Start [place] microgram date: 08/29/20 8:15:00 CDT, Stop date: 08/29/20 9:15:00 CDT norepinephr 2020-0 No Route: IV, Memoria ine (ANES) 08-29 Drug form: l 10 13:15: INJ, Start [place] microgram 00 date: 08/29/20 8:15:00 CDT, Stop date: 08/29/20 9:15:00 CDT norepinephr 2020-0 No Route: IV, Memoria ine (ANES) 08-29 Drug form: l 10 13:15: INJ, Start [place] microgram 00 date: 08/29/20 8:15:00 CDT, Stop date: 08/29/20 9:15:00 CDT norepinephr 2020-0 No Route: IV, Memoria ine (ANES) 08-29 Drug form: l 10 13:15: INJ, Start [place] microgram 00 date: 08/29/20 8:15:00 CDT, Stop date: 08/29/20 9:15:00 CDT Sodium 2020-0 No Route: IV, Memor ia Chloride 4-09 Total l 0.9% IV 12:30: Volume: [place] (ANES) 1000 00 1,000, mL Start date: 08/29/20 7:30:00 CDT, Stop date: 08/29/20 8:30:00 CDT Sodium 2021-0 No Route: IV, Memor ia Chloride 4-09 Total l 0.9% IV 12:30: Volume: [place] (ANES) 1000 00 1,000, mL Start date: 08/29/20 7:30:00 CDT, Stop date: 08/29/20 8:30:00 CDT Sodium 2021-0 No Route: IV, Memor ia Chloride 4-09 Total l 0.9% IV 12:30: Volume: [place] (ANES) 1000 00 1,000, mL Start date: 08/29/20 7:30:00 CDT, Stop date: 08/29/20 8:30:00 CDT Sodium 2021-0 No Route: IV, Memor ia Chloride 4-09 Total l 0.9% IV 12:30: Volume: [place] (ANES) 1000 00 1,000, mL Start date: [...] 4-09 Total l 0.9% IV 12:30: Volume: [place] (ANES) 1000 00 1,000, mL Start date: 08/29/20 7:30:00 CDT, Stop date: 04/09/21 8:30:00 CDT busPIRone 0 Yes 30 mg [...] PO, l Hydrochlori 11:42: Q24H, # 30 [place] de 150 MG 00 tab, 0 Extended Refill(s) Release Tablet 24 HR Yes 150 mg = 1 Memori a Bupropion 4-09 tab, PO, l Hydrochlori 11:42: Q24H, # 30 [place] de 150 MG 00 tab, 0 Extended Refill(s) Release Tablet 24 HR Yes 150 mg = 1 Memori a Bupropion 4-09 tab, PO, l Hydrochlori 11:42: Q24H, # 30 [place] de 150 MG 00 tab, 0 Extended Refill(s) Release Tablet 24 HR 2020-0 Yes 150 mg = 1 Memori a Bupropion -09 tab, PO, l Hydrochlori 11:42: Q24H, # 30 [place] de 150 MG 00 tab, 0 Extended Refill(s) Release Tablet 24 HR 2020-0 Yes 150 mg = 1 Memori a Bupropion -09 tab, PO, l Hydrochlori 11:42: Q24H, # 30 Marty de 150 MG 00 tab, 0 Extended Refill(s) Release Tablet 24 0 Yes 150 mg = 1 Memori a Bupropion -09 tab, PO, l Hydrochlori 11:42: Q24H, # 30 [place] de 150 MG 00 tab, 0 Extended Refill(s) Release Tablet 24 HR 0 Yes 150 mg = 1 Memori a Bupropion 4-09 tab, PO, l Hydrochlori 11:42: Q24H, # 30 [place] de 150 MG 00 tab, 0 Extended Refill(s) Release Tablet apixaban 2020-0 Yes 5 mg, PO, Me moria MG Oral 4 Q12H, tab, l Tablet 11:41: 0 [place] [Eliquis] 00 Refill(s), For Atrial Fibrilatio n apixaban 2020-0 Yes 5 mg, PO, Me moria MG Oral 4- Q12H, tab, l Tablet 11:41: 0 [place] [Eliquis] 00 Refill(s), For Atrial Fibrilatio n apixaban 2020-0 Yes 5 mg, PO, Me moria MG Oral 4- Q12H, tab, l Tablet 11:41: 0 [place] [Eliquis] 00 Refill(s), For Atrial Fibrilatio n apixaban 2020-0 Yes 5 mg, PO, Me moria MG Oral 4- Q12H, tab, l Tablet 11:41: 0 [place] [Eliquis] 00 Refill(s), For Atrial Fibrilatio n apixaban 2020-0 Yes 5 mg, PO, Me moria MG Oral 4- Q12H, tab, l Tablet 11:41: 0 [place] [Eliquis] 00 Refill(s), For Atrial Fibrilatio n [...] tab, PO, l tablet 11:38: Daily, # [place] 00 90 tab, 3 Refill(s) AMIODarone 0 [...] tab, PO, l tablet 11:38: Daily, # [place] 00 90 tab, 3 Refill(s) AMIODarone 0 Yes 200 mg = 1 M emoria 200 mg oral 4-09 tab, PO, l tablet 11:38: Daily, # Marty 00 90 tab, 3 Refill(s) AMIODarone 0 Yes 200 mg = 1 M emoria 200 mg oral 4-09 tab, PO, l tablet 11:38: Daily, # [place] 00 90 tab, 3 Refill(s) normal No [...] %) solution solution for nebulizati on triamterene 0 Yes 1{each} 1 each. [place] [...] tablet 00:00: mouth [facility] 00 daily. l [facility] 0 Yes 400mg Q.5D Take 400 Met [...] [facility] Immunization Name Name SARS-COV-2 COVID-19 [...] [place] 65[place] PFIZER COVID-19 2020-07-23 Completed [facility] VACCINATION 00:00:00 [facility] PFIZER COVID-19 2020-07-23 Completed [facility] MRNA VACCINATION 00:00:00 [facility] PFIZER COVID-19 2020-07-23 Completed [facility] VACCINATION 00:00:00 [facility] PFIZER COVID-19 2020-07-23 Completed [facility] MRNA VACCINATION 00:00:00 [facility] PFIZER COVID-19 2020-07-23 Completed [facility] MRNA VACCINATION 00:00:00 [facility] PFIZER COVID-19 2020-07-23 Completed [facility] MRNA VACCINATION 00:00:00 [facility] PFIZER COVID-19 2020-07-23 Completed [facility] MRNA VACCINATION 00:00:00 [facility] PFIZER COVID-19 2020-07-23 Completed [facility] MRNA VACCINATION 00:00:00 [facility] PFIZER COVID-19 2020-07-23 Completed [facility] MRNA VACCINATION 00:00:00 [facility] PFIZER COVID-19 2020-07-23 Completed [facility] MRNA VACCINATION 00:00:00 [facility] PFIZER COVID-19 2020-07-23 Completed [facility] MRNA VACCINATION 00:00:00 [facility] PFIZER COVID-19 2020-07-23 Completed [facility] MRNA VACCINATION 00:00:00 [facility] PFIZER COVID-19 2020-07-23 Completed [facility] MRNA VACCINATION 00:00:00 [facility] PFIZER COVID-19 2020-07-23 Completed [facility] MRNA VACCINATION 00:00:00 [facility] PFIZER COVID-19 2020-07-23 Completed [facility] MRNA VACCINATION 00:00:00 [facility] PFIZER COVID-19 2020-07-23 Completed [facility] MRNA VACCINATION 00:00:00 [facility] PFIZER COVID-19 2020-07-23 Completed [facility] MRNA VACCINATION 00:00:00 [facility] PFIZER COVID-19 2020-07-23 Completed [facility] MRNA VACCINATION 00:00:00 [facility] PFIZER COVID-19 2020-07-23 Completed [facility] MRNA VACCINATION 00:00:00 [facility] PFIZER COVID-19 2020-07-23 Completed [facility] MRNA VACCINATION 00:00:00 [facility] PFIZER COVID-19 2020-07-23 Completed [facility] MRNA VACCINATION 00:00:00 [facility] PFIZER COVID-19 2020-07-23 Completed [facility] MRNA VACCINATION 00:00:00 [facility] PFIZER COVID-19 2020-07-23 Completed [facility] MRNA VACCINATION 00:00:00 [facility] PFIZER COVID-19 2020-07-23 Completed [facility] MRNA VACCINATION 00:00:00 [facility] PFIZER COVID-19 2020-07-23 Completed [facility] MRNA VACCINATION 00:00:00 [facility] PFIZER COVID-19 2020-07-23 Completed [facility] M[facility] VACCINATION 00:00:00 [facility] PFIZER COVID-19 2020-07-23 Completed [facility] MRNA VACCINATION 00:00:00 [facility] PFIZER COVID-19 2020-07-23 Completed [facility] MRNA VACCINATION 00:00:00 [facility] PFIZER COVID-19 2020-07-23 Completed [facility] MRNA VACCINATION 00:00:00 [facility] PFIZER COVID-19 2020-07-23 Completed [facility] VACCINATION 00:00:00 [facility] PFIZER COVID-19 2020-07-23 Completed [facility] MRNA VACCINATION 00:00:00 [facility] PFIZER COVID-19 2020-07-02 Completed [facility] MRNA VACCINATION 00:00:00 [facility] PFIZER COVID-19 2020-07-02 Completed [facility] MRNA VACCINATION 00:00:00 [facility] PFIZER COVID-19 2020-07-02 Completed [facility] MRNA VACCINATION 00:00:00 [facility] PFIZER COVID-19 2020-07-02 Completed [facility] MRNA VACCINATION 00:00:00 [facility] PFIZER COVID-19 2020-07-02 Completed [facility] MRNA VACCINATION 00:00:00 [facility] PFIZER COVID-19 2020-07-02 Completed [facility] MRNA VACCINATION 00:00:00 [facility] PFIZER COVID-19 2020-07-02 Completed [facility] MRNA VACCINATION 00:00:00 [facility] PFIZER COVID-19 2020-07-02 Completed [facility] MRNA VACCINATION 00:00:00 [facility] PFIZER COVID-19 2020-07-02 Completed [facility] MRNA VACCINATION 00:00:00 [facility] PFIZER COVID-19 2020-07-02 Completed [facility] VACCINATION 00:00:00 Hospital PFIZER COVID-19 2020-07-02 Completed [facility] MRNA VACCINATION 00:00:00 [facility] PFIZER COVID-19 2020-07-02 Completed [facility] MRNA VACCINATION 00:00:00 [facility] PFIZER COVID-19 2020-07-02 Completed [facility] MRNA VACCINATION 00:00:00 [facility] PFIZER COVID-19 2020-07-02 Completed [facility] MRNA VACCINATION 00:00:00 [facility] PFIZER COVID-19 2020-07-02 Completed [facility] MRNA VACCINATION 00:00:00 [facility] PFIZER COVID-19 2020-07-02 Completed [facility] MRNA VACCINATION 00:00:00 [facility] PFIZER COVID-19 2020-07-02 Completed [facility] MRNA VACCINATION 00:00:00 [facility] PFIZER COVID-19 2020-07-02 Completed [facility] MRNA VACCINATION 00:00:00 [facility] PFIZER COVID-19 2020-07-02 Completed [facility] MRNA VACCINATION 00:00:00 [facility] PFIZER COVID-19 2020-07-02 Completed [facility] MRNA VACCINATION 00:00:00 [facility] PFIZER COVID-19 2020-07-02 Completed [facility] VACC[facility] 00:00:00 [facility] PFIZER COVID-19 2020-07-02 Completed [facility] VACC[facility] 00:00:00 [facility] PFIZER COVID-19 2020-07-02 Completed [facility] VACC[facility] 00:00:00 [facility] PFIZER COVID-19 2020-07-02 Completed [facility] VACC[facility]ATION 00:00:00 [facility] PFIZER COVID-19 2020-07-02 Completed [facility] VACC[facility] 00:00:00 [facility] PFIZER COVID-19 2020-07-02 Completed [facility] VACC[facility] 00:00:00 [facility] PFIZER COVID-19 2020-07-02 Completed [facility] VACC[facility] 00:00:00 [facility] PFIZER COVID-19 2020-07-02 Completed [facility] VACC[facility] 00:00:00 [facility] PFIZER COVID-19 2020-07-02 Completed [facility] VACC[facility] 00:00:00 [facility] PFIZER COVID-19 2020-07-02 Completed [facility]ACC[facility]00 [facility] PFIZER COVID-19 2020-07-02 Completed [facility] VACCIN[facility] 00:00:00 [facility] Influenza Virus 2017-03-08 [facility]pleted [facility]00 [facility] Influenza Virus 2017-03-08 Completed [facility]00[facility]00 [facility] Influenza Virus 2017-03-08 Completed [facility] 00[facility]00[facility]00 [facility] Influenza Virus 2017-03-08 Completed [facility] [facility] Virus 2017-03-08 Completed [facility] Vaccine 00:00:00 [facility] Influenza Virus 2017-03-08 Completed [facility] Vaccine 00[facility]00:00 [facility] Influenza Virus 2017-03-08 Completed [facility] Vaccine 00:00:00 [facility] Influenza Virus 2017-03-08 Completed [facility] Vaccine 00:00:00 [facility] Influenza Virus 2017-03-08 Completed [facility] Vaccine 00:00:00 [facility] Influenza Virus 2017-03-08 Completed [facility] Vaccine 00:00:00 [facility] Influenza Virus 2017-03-08 Completed [facility] Vaccine 00:00:00 [facility] Influenza Virus 2017-03-08 Completed [facility] of Vaccine 00:00:00 [facility] Influenza Virus 2017-03-08 Completed [facility] Vaccine 00:00:00 [facility] Influenza Virus 2017-03-08 Completed [facility] of Vaccine 00:00:00 [facility] Influenza Virus 2017-03-08 Completed [facility] of Vaccine 00:00:00 [facility] Influenza Virus 2017-03-08 Completed [facility] Vaccine 00:00:00 [facility] Influenza Virus 2017-03-08 Completed [facility] Vaccine 00:00:00 [facility] Influenza Virus 2017-03-08 Completed [facility] Vaccine 00:00:00 [facility] Influenza Virus 2014-01-30 Completed [facility] of Vaccine (3+ yrs) 00:00:00 [facility] Pneumococcal 13 2014-01-30 Completed Universit y of Conjugate, PCV13 00:00:00 [facility] dical (Prevnar 13) Branch Influenza Virus 2014-01-30 Completed [facility] of Vaccine (3+ yrs) 00:00:00 [facility] Pneumococcal 13 2014-01-30 Completed [facility] Conjugate, PCV13 00[facility]00[facility] Influ[facility] Virus 2014-01-30 Completed [facility] Vaccine (3+ yrs) 00:00[facility] Pneum[facility] 13 2014-01-30 Completed [facility] of Conjugate, PCV13 00:00:00 [facility] dical (Prevnar 13) Branch Influenza Virus 2014-01-30 Completed [facility] of Vaccine (3+ yrs) 00:00:00 [facility] Pneumococcal 13 2014-01-30 Completed [facility] of Conjugate, PCV13 00:00:00 [facility] dical (Prevnar 13) Branch Influenza Virus 2014-01-30 Completed [facility] of Vaccine (3+ yrs) 00:00:00 [facility] Pneumococcal 13 2014-01-30 Completed [facility] Conjugate, PCV13 00:00:00 [facility] (Prevnar 13) [facility] Influenza Virus 2014-01-30 Completed [facility] Vaccine (3+ yrs) 00:00:00 [facility] Pneumococcal 13 2014-01-30 Completed [facility] of Conjugate, PCV13 00:00:00 [facility] (Prevnar 13) [facility] Influenza Virus 2014-01-30 Completed [facility] Vaccine (3+ yrs) 00:00:00 [facility] Pneumococcal 13 2014-01-30 Completed [facility] of Conjugate, PCV13 00:00:00 [facility] dical (Prevnar 13) Branch Influenza Virus 2014-01-30 Completed [facility] of Vaccine (3+ yrs) 00:00:00 [facility] Pneumococcal 13 2014-01-30 Completed [facility] of Conjugate, PCV13 00:00:00 [facility] dical (Prevnar 13) Branch Influenza Virus 2014-01-30 Completed [facility] of Vaccine (3+ yrs) 00:00:00 [facility] Branch Pneumococcal 13 2014-01-30 Completed [facility]it [facility] of Conjugate, PCV13 00:00:00 [facility] dical (Prevnar 13) Branch Influenza Virus 2014-01-30 Completed [facility] of Vaccine (3+ yrs) 00:00:00 [facility] Pneumococcal 13 2014-01-30 Completed [facility] of Conjugate, PCV13 00:00:00 [facility] dical (Prevnar 13) Branch Influenza Virus 2014-01-30 Completed [facility] of Vaccine (3+ yrs) 00:00:00 [facility] Branch Pneumococcal 13 2014-01-30 Completed [facility] of Conjugate, PCV13 00:00:00 [place] [facility] (Prevnar 13) Branch Influenza Virus 2014-01-30 Completed [facility] of Vaccine (3+ yrs) 00:00:00 [facility] Branch Pneumococcal 13 2014-01-30 Completed [facility] of Conjugate, PCV13 00:00:00 [place] [facility] (Prevnar 13) Branch Influenza Virus 2014-01-30 Completed [facility] of Vaccine (3+ yrs) 00:00:00 [facility] Branch Pneumococcal 13 2014-01-30 Completed [facility]it [facility] of Conjugate, PCV13 00:00:00 [facility] dical (Prevnar 13) Branch Influenza Virus 2014-01-30 Completed [facility] of Vaccine (3+ yrs) 00:00:00 [facility] Branch Pneumococcal 13 2014-01-30 Completed [facility]it [facility] of Conjugate, PCV13 00:00:00 [facility] dical (Prevnar 13) Branch Influenza Virus 2014-01-30 Completed [facility] of Vaccine (3+ yrs) 00:00:00 [facility] Branch Pneumococcal 13 2014-01-30 Completed [facility]it [facility] of Conjugate, PCV13 00:00:00 [facility] dical (Prevnar 13) Branch Influenza Virus 2014-01-30 Completed [facility] of Vaccine (3+ yrs) 00:00:00 [facility] Branch Pneumococcal 13 2014-01-30 Completed [facility]it [facility] of Conjugate, PCV13 00:00:00 [facility] dical (Prevnar 13) Branch Influenza Virus 2014-01-30 Completed [facility] of Vaccine (3+ yrs) 00:00:00 [facility] Branch Pneumococcal 13 2014-01-30 Completed [facility] of Conjugate, PCV13 00:00:00 [facility] dical (Prevnar 13) Branch Influenza Virus 2014-01-30 Completed [facility] of Vaccine (3+ yrs) 00:00:00 [facility] Branch Pneumococcal 13 2014-01-30 Completed [facility]it y of Conjugate, PCV13 00:00:00 [facility] dical (Prevnar 13) Branch Pneumococcal 2012-02-16 Completed University o f Polysaccharide, 00:00:00 [facility] ical PPSV23 (PNEUMOVAX) Branch Influenza Virus 2012-02-16 Completed [facility]it [facility] of Vaccine 00:00:00 [facility] PPD (TB) 2012-02-16 Completed [facility] of 00:00:00 [facility] Pneumococcal 2012-02-16 Completed University o f Polysaccharide, 00:00:00 [facility] ical PPSV23 (PNEUMOVAX) Branch Influenza Virus 2012-02-16 Completed [facility] of Vaccine 00:00:00 [facility] PPD (TB) 2012-02-16 Completed [facility] of 00:00:00 [facility] Pneumococcal 2012-02-16 Completed University o f Polysaccharide, 00:00:00 [facility] ical PPSV23 (PNEUMOVAX) Branch Influenza Virus 2012-02-16 Completed [facility] of Vaccine 00:00:00 [facility] PPD (TB) 2012-02-16 Completed [facility] of 00:00:00 [facility] Pneumococcal 2012-02-16 Completed [facility] o f Polysaccharide, 00:00:00 [facility] PPSV23 (PNEUMOVAX) Branch Influenza Virus 2012-02-16 Completed [facility] of Vaccine 00:00:00 [facility] PPD (TB) 2012-02-16 Completed [facility] of 00:00:00 [facility] Pneumococcal 2012-02-16 Completed [facility] o f Polysaccharide, 00:00:00 [facility] PPSV23 (PNEUMOVAX) Branch Influenza Virus 2012-02-16 Completed [facility] of Vaccine 00:00:00 [facility] PPD (TB) 2012-02-16 Completed [facility] of 00:00:00 [facility] Pneumococcal 2012-02-16 Completed [facility] o f Polysaccharide, 00:00:00 [facility] PPSV23 (PNEUMOVAX) Branch Influenza Virus 2012-02-16 Completed [facility] of Vaccine 00:00:00 [facility] PPD (TB) 2012-02-16 Completed [facility] of 00:00:00 [facility] Pneumococcal 2012-02-16 Completed [facility] o f Polysaccharide, 00:00:00 [facility] PPSV23 (PNEUMOVAX) Branch Influenza Virus 2012-02-16 Completed [facility] of Vaccine 00:00:00 [facility] PPD (TB) 2012-02-16 Completed [facility] of 00:00:00 [facility] Pneumococcal 2012-02-16 Completed [facility] o f Polysaccharide, 00:00:00 [facility] PPSV23 (PNEUMOVAX) Branch Influenza Virus 2012-02-16 Completed [facility] of Vaccine 00:00:00 [facility] PPD (TB) 2012-02-16 Completed [facility] of 00:00:00 [facility] Pneumococcal 2012-02-16 Completed [facility] o f Polysaccharide, 00:00:00 [facility] PPSV23 (PNEUMOVAX) Branch Influenza Virus 2012-02-16 Completed [facility] of Vaccine 00:00:00 [facility] PPD (TB) 2012-02-16 Completed [facility] of 00:00:00 [facility] Pneumococcal 2012-02-16 Completed [facility] o f Polysaccharide, 00:00:00 [facility] PPSV23 (PNEUMOVAX) Branch Influenza Virus 2012-02-16 Completed [facility] of Vaccine 00:00:00 [facility] PPD (TB) 2012-02-16 Completed [facility] of 00:00:00 [facility] Pneumococcal 2012-02-16 Completed [facility] o f Polysaccharide, 00:00:00 [facility] PPSV23 (PNEUMOVAX) Branch Influenza Virus 2012-02-16 Completed [facility] of Vaccine 00:00:00 [facility] PPD (TB) 2012-02-16 Completed [facility] of 00:00:00 [facility] Pneumococcal 2012-02-16 Completed [facility] o f Polysaccharide, 00:00:00 [facility] PPSV23 (PNEUMOVAX) Branch Influenza Virus 2012-02-16 Completed [facility] of Vaccine 00:00:00 [facility] PPD (TB) 2012-02-16 Completed University of 00:00:00 [facility] Pneumococcal 2012-02-16 Completed [facility] o f Polysaccharide, 00:00:00 [facility] PPSV23 (PNEUMOVAX) Branch Influenza Virus 2012-02-16 Completed [facility] of Vaccine 00:00:00 [facility] PPD (TB) 2012-02-16 Completed [facility] of 00:00:00 [facility] Pneumococcal 2012-02-16 Completed [facility] o f Polysaccharide, 00:00:00 [facility] PPSV23 (PNEUMOVAX) Branch Influenza Virus 2012-02-16 Completed [facility] of Vaccine 00:00:00 [facility] PPD (TB) 2012-02-16 Completed [facility] of 00:00:00 [facility] Pneumococcal 2012-02-16 Completed University o f Polysaccharide, 00:00:00 [facility] ical PPSV23 (PNEUMOVAX) Branch Influenza Virus 2012-02-16 Completed [facility] of Vaccine 00:00:00 [facility] PPD (TB) 2012-02-16 Completed [facility] of 00:00:00 [facility] Pneumococcal 2012-02-16 Completed [facility] o f Polysaccharide, 00:00:00 [facility] PPSV23 (PNEUMOVAX) Branch Influenza Virus 2012-02-16 Completed [facility] of Vaccine 00:00:00 [facility] PPD (TB) 2012-02-16 Completed [facility] of 00:00:00 [facility] Pneumococcal 2012-02-16 Completed [facility] o f Polysaccharide, 00:00:00 [facility] PPSV23 (PNEUMOVAX) Branch Influenza Virus 2012-02-16 Completed [facility] of Vaccine 00:00:00 [facility] PPD (TB) 2012-02-16 Completed [facility] of 00:00:00 [facility] Pneumococcal 2012-02-16 Completed University o f Polysaccharide, 00:00:00 [facility] PPSV23 (PNEUMOVAX) Branch Influenza Virus 2012-02-16 Completed Universit [facility] of Vaccine 00:00:00 [facility] PPD (TB) 2012-02-16 Completed University of 00:00:00 [facility] Hep B, Adol or Pedi 2011-09-01 Completed Unive rsity of Dosage 00:00:00 [facility] Hep B, Adol or Pedi 2011-09-01 Completed Unive rsity of Dosage 00:00:00 [facility] Hep B, Adol or Pedi 2011-09-01 Completed Unive rsity of Dosage 00:00:00 [facility] Hep B, Adol or Pedi 2011-09-01 Completed Unive rsity of Dosage 00:00:00 [facility] Hep B, Adol or Pedi 2011-09-01 Completed Unive rsity of Dosage 00:00:00 [facility] Hep B, Adol or Pedi 2011-09-01 Completed Unive rsity of Dosage 00:00:00 [facility] Hep B, Adol or Pedi 2011-09-01 Completed Unive rsity of Dosage 00:00:00 [facility] Hep B, Adol or Pedi 2011-09-01 Completed Unive rsity of Dosage 00:00:00 [facility] Hep B, Adol or Pedi 2011-09-01 Completed Unive rsity of Dosage 00:00:00 [facility] Hep B, Adol or Pedi 2011-09-01 Completed Unive rsity of Dosage 00:00:00 [facility] Hep B, Adol or Pedi 2011-09-01 Completed Unive rsity of Dosage 00:00:00 [facility] Hep B, Adol or Pedi 2011-09-01 Completed Unive rsity of Dosage 00:00:00 [facility] Hep B, Adol or Pedi 2011-09-01 Completed Unive rsity of Dosage 00:00:00 [facility] Hep B, Adol or Pedi 2011-09-01 Completed Unive rsity of Dosage 00:00:00 [facility] Hep B, Adol or Pedi 2011-09-01 Completed Unive rsity of Dosage 00:00:00 [facility] Hep B, Adol or [...] 2011-03-17 Completed Unive rsity of Dosage 00:00:00 [facility] Hep B, Adol or Pedi [...] Unive rsity of Dosage 00:00:00 [facility] Hep B, Adol or Pedi 2011-03-17 Completed Unive rsity of Dosage 00:00:00 [facility] Hep B, Adol or Pedi 2011-03-17 Completed Unive rsity of Dosage 00:00:00 [facility] Influenza Virus 2011-02-10 Completed [facility] of Vaccine 00:00:00 [facility] Hep B, Adol or Pedi 2011-02-10 Completed Unive rsity of Dosage 00:00:00 [facility] Influenza Virus 2011-02-10 Completed [facility] of Vaccine 00:00:00 [facility] Hep B, Adol or Pedi 2011-02-10 Completed Unive rsity of Dosage 00:00:00 [facility] Influenza Virus 2011-02-10 Completed [facility] of Vaccine 00:00:00 [facility] Hep B, Adol or Pedi 2011-02-10 Completed Unive rsity of Dosage 00:00:00 [facility] Influenza Virus 2011-02-10 Completed [facility] of Vaccine 00:00:00 [facility] Hep B, Adol or Pedi 2011-02-10 Completed Unive rsity of Dosage 00:00:00 [facility] Influenza Virus 2011-02-10 Completed [facility] of Vaccine 00:00:00 [facility] Hep B, Adol or Pedi 2011-02-10 Completed Unive rsity of Dosage 00:00:00 [facility] Influenza Virus 2011-02-10 Completed [facility] of Vaccine 00:00:00 [facility] Hep B, Adol or Pedi 2011-02-10 Completed Unive rsity of Dosage 00:00:00 [facility] Influenza Virus 2011-02-10 Completed [facility] of Vaccine 00:00:00 [facility] Hep B, Adol or Pedi 2011-02-10 Completed Unive rsity of Dosage 00:00:00 [facility] Influenza Virus 2011-02-10 Completed [facility] of Vaccine 00:00:00 [facility] Hep B, Adol or Pedi 2011-02-10 Completed Unive rsity of Dosage 00:00:00 [facility] Influenza Virus 2011-02-10 Completed [facility] of Vaccine 00:00:00 [facility] Hep B, Adol or Pedi 2011-02-10 Completed Unive rsity of Dosage 00:00:00 [facility] Influenza Virus 2011-02-10 Completed [facility] y of Vaccine 00:00:00 [facility] Hep B, Adol or Pedi 2011-02-10 Completed Unive rsity of Dosage 00:00:00 [facility] Influenza Virus 2011-02-10 Completed [facility] of Vaccine 00:00:00 [facility] Hep B, Adol or Pedi 2011-02-10 Completed Unive rsity of Dosage 00:00:00 [facility] Influenza Virus 2011-02-10 Completed [facility] of Vaccine 00:00:00 [facility] Hep B, Adol or Pedi 2011-02-10 Completed Unive rsity of Dosage 00:00:00 [facility] Influenza Virus 2011-02-10 Completed [facility] of Vaccine 00:00:00 [facility] Hep B, Adol or Pedi 2011-02-10 Completed Unive rsity of Dosage 00:00:00 [facility] Influenza Virus 2011-02-10 Completed [facility] of Vaccine 00:00:00 [facility] Hep B, Adol or Pedi 2011-02-10 Completed Unive rsity of Dosage 00:00:00 [facility] Influenza Virus 2011-02-10 Completed [facility] of Vaccine 00:00:00 [facility] Hep B, Adol or Pedi 2011-02-10 Completed Unive rsity of Dosage 00:00:00 [facility] Influenza Virus 2011-02-10 Completed [facility] y of Vaccine 00:00:00 [facility] Hep B, Adol or Pedi 2011-02-10 Completed Unive rsity of Dosage 00:00:00 [facility] Influenza Virus 2011-02-10 Completed [facility] y of Vaccine 00:00:00 [facility] Hep B, Adol or Pedi 2011-02-10 Completed Unive rsity of Dosage 00:00:00 [facility] Influenza Virus 2011-02-10 Completed [facility] of Vaccine 00:00:00 [facility] Hep B, Adol or Pedi 2011-02-10 Completed Unive rsity of Dosage 00:00:00 [facility] PPD (TB) 2010-11-18 Completed University of 00:00:00 [facility] TDAP (ADACEL) 2010-11-18 Completed University of VACCINE 00:00:00 [facility] PPD (TB) 2010-11-18 Completed University of 00:00:00 [facility] TDAP (ADACEL) 2010-11-18 Completed University of VACCINE 00:00:00 [facility] PPD (TB) 2010-11-18 Completed University of 00:00:00 [facility] TDAP (ADACEL) 2010-11-18 Completed University of VACCINE 00:00:00 [facility] PPD (TB) 2010-11-18 Completed University of 00:00:00 [facility] TDAP (ADACEL) 2010-11-18 Completed University of VACCINE 00:00:00 [facility] PPD (TB) 2010-11-18 Completed University of 00:00:00 [facility] TDAP (ADACEL) 2010-11-18 Completed University of VACCINE 00:00:00 [facility] PPD (TB) 2010-11-18 Completed University of 00:00:00 [facility] TDAP (ADACEL) 2010-11-18 Completed University of VACCINE 00:00:00 [facility] PPD (TB) 2010-11-18 Completed University of 00:00:00 [facility] TDAP (ADACEL) 2010-11-18 Completed University of VACCINE 00:00:00 [facility] PPD (TB) 2010-11-18 Completed University of 00:00:00 [facility] TDAP (ADACEL) 2010-11-18 Completed University of VACCINE 00:00:00 [facility] PPD (TB) 2010-11-18 Completed University of 00:00:00 [facility] TDAP (ADACEL) 2010-11-18 Completed University of VACCINE 00:00:00 [facility] PPD (TB) 2010-11-18 Completed University of 00:00:00 [facility] TDAP (ADACEL) 2010-11-18 Completed University of VACCINE 00:00:00 [facility] PPD (TB) 2010-11-18 Completed University of 00:00:00 [facility] TDAP (ADACEL) 2010-11-18 Completed University of VACCINE 00:00:00 [facility] PPD (TB) 2010-11-18 Completed University of 00:00:00 [facility] TDAP (ADACEL) 2010-11-18 Completed University of VACCINE 00:00:00 [facility] PPD (TB) 2010-11-18 Completed University of 00:00:00 [facility] TDAP (ADACEL) 2010-11-18 Completed University of VACCINE 00:00:00 [facility] PPD (TB) 2010-11-18 Completed University of 00:00:00 [facility] TDAP (ADACEL) 2010-11-18 Completed University of VACCINE 00:00:00 [facility] PPD (TB) 2010-11-18 Completed University of 00:00:00 [facility] TDAP (ADACEL) 2010-11-18 Completed University of VACCINE 00:00:00 [facility] PPD (TB) 2010-11-18 Completed University of 00:00:00 [facility] TDAP (ADACEL) 2010-11-18 Completed University of VACCINE 00:00:00 [facility] PPD (TB) 2010-11-18 Completed University of 00:00:00 [facility] TDAP (ADACEL) 2010-11-18 Completed University of VACCINE 00:00:00 [facility] PPD (TB) 2010-11-18 Completed University of 00:00:00 [facility] TDAP (ADACEL) 2010-11-18 Completed University of VACCINE 00:00:00 [facility] HEPATITIS A 2004-03-02 Completed University of 00:00:00 [facility] HEPATITIS A 2004-03-02 Completed University of 00:00:00 [facility] HEPATITIS A 2004-03-02 Completed University of 00:00:00 [facility] HEPATITIS A 2004-03-02 Completed University of 00:00:00 [facility] HEPATITIS A 2004-03-02 Completed University of 00:00:00 [facility] HEPATITIS A 2004-03-02 Completed University of 00:00:00 [facility] HEPATITIS A 2004-03-02 Completed University of 00:00:00 [facility] HEPATITIS A 2004-03-02 Completed University of 00:00:00 [facility] HEPATITIS A 2004-03-02 Completed University of 00:00:00 [facility] HEPATITIS A 2004-03-02 Completed University of 00:00:00 [facility] HEPATITIS A 2004-03-02 Completed University of 00:00:00 [facility] HEPATITIS A 2004-03-02 Completed University of 00:00:00 [facility] HEPATITIS A 2004-03-02 Completed University of 00:00:00 [facility] HEPATITIS A 2004-03-02 Completed University of 00:00:00 [facility] HEPATITIS A 2004-03-02 Completed University of 00:00:00 [facility] HEPATITIS A 2004-03-02 Completed University of 00:00:00 [facility] HEPATITIS A 2004-03-02 Completed University of 00:00:00 [facility] HEPATITIS A 2004-03-02 Completed University of 00:00:00 [facility] HEPATITIS A 2003-08-01 Completed University of 00:00:00 [facility] HEPATITIS A 2003-08-01 Completed University of 00:00:00 [facility] HEPATITIS A 2003-08-01 Completed University of 00:00:00 [facility] HEPATITIS A 2003-08-01 Completed University of 00:00:00 [facility] HEPATITIS A 2003-08-01 Completed University of 00:00:00 [facility] HEPATITIS A 2003-08-01 Completed University of 00:00:00 [facility] HEPATITIS A 2003-08-01 Completed University of 00:00:00 [facility] HEPATITIS A 2003-08-01 Completed University of 00:00:00 [facility] HEPATITIS A 2003-08-01 Completed University of 00:00:00 [facility] HEPATITIS A 2003-08-01 Completed University of 00:00:00 [facility] HEPATITIS A 2003-08-01 Completed University of 00:00:00 [facility] HEPATITIS A 2003-08-01 Completed University of 00:00:00 [facility] HEPATITIS A 2003-08-01 Completed University of 00:00:00 [facility] HEPATITIS A 2003-08-01 Completed University of 00:00:00 [facility] HEPATITIS A 2003-08-01 Completed University of 00:00:00 [facility] HEPATITIS A 2003-08-01 Completed University of 00:00:00 [facility] HEPATITIS A 2003-08-01 Completed University of 00:00:00 [facility] HEPATITIS A 2003-08-01 Completed University of 00:00:00 [facility] Pneumococcal 2001-10-04 Completed University o f Polysaccharide, 00:00:00 [place] [facility] PPSV23 (PNEUMOVAX) [facility] PPD (TB) 2001-10-04 Completed University of 00:00:00 [facility] Pneumococcal 2001-10-04 Completed University o f Polysaccharide, 00:00:00 [place] [facility] PPSV23 (PNEUMOVAX) [facility] PPD (TB) 2001-10-04 Completed University of 00:00:00 [facility] Pneumococcal 2001-10-04 Completed University o f Polysaccharide, 00:00:00 [place] [facility] PPSV23 (PNEUMOVAX) [facility] PPD (TB) 2001-10-04 Completed University of 00:00:00 [facility] Pneumococcal 2001-10-04 Completed University o f Polysaccharide, 00:00:00 [place] [facility] PPSV23 (PNEUMOVAX) Branch PPD (TB) 2001-10-04 Completed University of 00:00:00 [facility] Pneumococcal 2001-10-04 Completed University o f Polysaccharide, 00:00:00 [place] [facility] PPSV23 (PNEUMOVAX) Branch PPD (TB) 2001-10-04 Completed University of 00:00:00 [facility] Pneumococcal 2001-10-04 Completed University o f Polysaccharide, 00:00:00 [place] [facility] PPSV23 (PNEUMOVAX) Branch PPD (TB) 2001-10-04 Completed University of 00:00:00 [facility] Pneumococcal 2001-10-04 Completed University o f Polysaccharide, 00:00:00 [place] [facility] PPSV23 (PNEUMOVAX) Branch PPD (TB) 2001-10-04 Completed University of 00:00:00 [facility] Pneumococcal 2001-10-04 Completed University o f Polysaccharide, 00:00:00 [place] [facility] PPSV23 (PNEUMOVAX) Branch PPD (TB) 2001-10-04 Completed University of 00:00:00 [facility] Pneumococcal 2001-10-04 Completed University o f Polysaccharide, 00:00:00 [place] [facility] PPSV23 (PNEUMOVAX) Branch PPD (TB) 2001-10-04 Completed University of 00:00:00 [facility] Pneumococcal 2001-10-04 Completed University o f Polysaccharide, 00:00:00 [place] [facility] PPSV23 (PNEUMOVAX) Branch PPD (TB) 2001-10-04 Completed University of 00:00:00 [facility] Pneumococcal 2001-10-04 Completed University o f Polysaccharide, 00:00:00 [place] [facility] PPSV23 (PNEUMOVAX) Branch PPD (TB) 2001-10-04 Completed University of 00:00:00 [facility] Pneumococcal 2001-10-04 Completed University o f Polysaccharide, 00:00:00 [place] [facility] PPSV23 (PNEUMOVAX) Branch PPD (TB) 2001-10-04 Completed University of 00:00:00 [facility] Pneumococcal 2001-10-04 Completed University o f Polysaccharide, 00:00:00 [place] [facility] PPSV23 (PNEUMOVAX) Branch PPD (TB) 2001-10-04 Completed University of 00:00:00 [facility] Pneumococcal 2001-10-04 Completed University o f Polysaccharide, 00:00:00 [place] [facility] PPSV23 (PNEUMOVAX) Branch PPD (TB) 2001-10-04 Completed University of 00:00:00 [facility] Pneumococcal 2001-10-04 Completed University o f Polysaccharide, 00:00:00 [place] [facility] PPSV23 (PNEUMOVAX) Branch PPD (TB) 2001-10-04 Completed University of 00:00:00 [facility] Pneumococcal 2001-10-04 Completed University o f Polysaccharide, 00:00:00 [place] [facility] PPSV23 (PNEUMOVAX) Branch PPD (TB) 2001-10-04 Completed University of 00:00:00 [facility] Pneumococcal 2001-10-04 Completed University o f Polysaccharide, 00:00:00 [place] [facility] PPSV23 (PNEUMOVAX) Branch PPD (TB) 2001-10-04 Completed University of 00:00:00 [facility] Pneumococcal 2001-10-04 Completed University o f Polysaccharide, 00:00:00 [place] [facility] PPSV23 (PNEUMOVAX) Branch PPD (TB) 2001-10-04 Completed University of 00:00:00 [facility] Vital Signs Vital Name Observation Time Observation Value Comments Source Systolic blood 2022-05-10 22:00:00 159 mm[Hg] Univer sity of pressure [facility] Diastolic blood 2022-05-10 22:00:00 87 mm[Hg] Unive rsity of [facility] Heart rate 2022-05-10 22:00:00 56 /min [facility] Body temperature 2022-05-10 22:00:00 36.61 Amina [facility] Respiratory rate 2022-05-10 22:00:00 17 /min [facility] Oxygen saturation in 2022-05-10 22:00:00 98 /min [facility] Arterial blood by [facility] Pulse oximetry Branch Body weight 2022-05-10 16:29:00 78.926 kg [facility] BMI 2022-05-10 16:29:00 29.87 kg/m2 [facility] Systolic blood 2022-05-08 22:30:00 168 mm[Hg] Univer sity of pressure [facility] Diastolic blood 2022-05-08 22:30:00 85 mm[Hg] Unive rsity of pressure [facility] Heart rate 2022-05-08 22:30:00 68 /min [facility] Oxygen saturation in 2022-05-08 22:30:00 100 /min University of Arterial blood by [facility] Pulse oximetry Branch Body temperature 2022-05-08 22:22:00 35.89 Amina Univ ersity of [facility] Respiratory rate 2022-05-08 22:22:00 14 /min Univ ersity of [facility] Body weight 2022-05-08 22:22:00 78.926 kg [facility] BMI 2022-05-08 22:22:00 29.87 kg/m2 [facility] Systolic blood 2022-05-07 00:00:00 149 mm[Hg] Univer sity of pressure [facility] Diastolic blood 2022-05-07 00:00:00 132 mm[Hg] Unive rsity of pressure [facility] Heart rate 2022-05-07 00:00:00 59 /min [facility] Respiratory rate 2022-05-07 00:00:00 14 /min Univ ersity of [facility] Oxygen saturation in 2022-05-07 00:00:00 99 /min University of Arterial blood by [facility] Pulse oximetry Branch Body temperature 2022-05-06 20:12:00 36.5 Amina Univ ersity of [facility] Body height 2022-05-06 20:12:00 162.6 cm [facility] Body weight 2022-05-06 20:12:00 78.926 kg [facility] BMI 2022-05-06 20:12:00 29.87 kg/m2 [facility] Systolic blood 2022-04-22 19:50:00 156 mm[Hg] Univer sity of pressure [facility] Diastolic blood 2022-04-22 19:50:00 89 mm[Hg] Unive rsity of pressure [facility] Heart rate 2022-04-22 19:50:00 69 /min [facility] Body temperature 2022-04-22 19:50:00 36.67 Amina Univ ersity [facility] Respiratory rate 2022-04-22 19:50:00 17 /min Univ ersity [facility] Body height 2022-04-22 19:50:00 162.6 cm [facility] Body weight 2022-04-22 19:50:00 80.74 kg [facility] BMI 2022-04-22 19:50:00 30.55 kg/m2 [facility] Oxygen saturation in 2022-04-22 19:50:00 96 /min University of Arterial blood by [place] [employer] Pulse oximetry Branch Systolic blood 2022-03-05 15:23:00 167 mm[Hg] Univer sity of [facility] Diastolic blood 2022-03-05 15:23:00 105 mm[Hg] Unive rsity of pressure [facility] Heart rate 2022-03-05 15:23:00 49 /min [facility] Body temperature 2022-03-05 15:18:00 36.67 Amina Univ ersity of [facility] Respiratory rate 2022-03-05 15:18:00 18 /min Univ ersity of [facility] Body height 2022-03-05 15:18:00 162.6 cm [facility] Body weight 2022-03-05 15:18:00 74.707 kg [facility] BMI 2022-03-05 15:18:00 28.27 kg/m2 [facility] Systolic blood 2022-02-16 21:41:00 169 mm[Hg] Univer sity of pressure [facility] Diastolic blood 2022-02-16 21:41:00 86 mm[Hg] Unive rsity of pressure [facility] Heart rate 2022-02-16 21:41:00 51 /min [facility] Body temperature 2022-02-16 21:41:00 36.56 Amina Univ ers[facility] Respiratory rate 2022-02-16 21:41:00 17 /min Univ ersity of [facility] Oxygen saturation in 2022-02-16 21:41:00 98 /min University of Arterial blood by [employer] Pulse oximetry Branch Body height 2022-02-11 16:02:00 162.6 cm [facility] Body weight 2022-02-11 16:02:00 79.379 kg [facility] BMI 2022-02-11 16:02:00 30.04 kg/m2 [facility] Systolic blood 2021-11-20 13:47:00 165 mm[Hg] Univer sity of pressure [facility] Diastolic blood 2021-11-20 13:47:00 83 mm[Hg] Unive rsity of pressure [facility] Heart rate 2021-11-20 13:47:00 58 /min [facility] Body temperature 2021-11-20 13:42:00 36.39 Amina [facility] Respiratory rate 2021-11-20 13:42:00 16 /min Univ ersity of [facility] Body height 2021-11-20 13:42:00 162.6 cm [facility] [place] [facility] [place] Body weight 2021-11-20 13:42:00 84.369 kg Universi ty of [facility] BMI 2021-11-20 13:42:00 31.93 kg/m2 Universi ty of [facility] Systolic blood 2021-07-14 15:18:00 142 mm[Hg] [...] 15:23:00 167 mm[Hg] Univer sity of pressure [facility] Diastolic blood 2022-03-05 15:23:00 105 mm[Hg] Unive rsity of pressure [facility] Heart rate 2022-03-05 15:23:00 49 /min [facility]i ty [facility] [place] Body temperature 2022-03-05 15:18:00 36.67 Amina Univ ersity of [facility] Respiratory rate 2022-03-05 15:18:00 18 /min [facility] Body height 2022-03-05 15:18:00 162.6 cm [facility] Body weight 2022-03-05 15:18:00 74.707 kg [facility] BMI 2022-03-05 15:18:00 28.27 kg/m2 [facility] Oxygen saturation in 2022-02-16 21:41:00 98 /min University Arterial blood by [facility] Pulse oximetry Branch Systolic blood 2020-12-08 15:48:00 125 mm[Hg] [facility] pressure Diastolic blood 2020-12-08 15:48:00 76 mm[Hg] [facility] pressure Heart rate 2020-12-08 15:48:00 64 /min [facility] Body temperature 2020-12-08 15:48:00 36.61 Amina [facility] Respiratory rate 2020-12-08 15:48:00 17 /min [facility] Body height 2020-12-08 15:48:00 162.6 cm [facility] Body weight 2020-12-08 15:48:00 98.884 kg [facility] BMI 2020-12-08 15:48:00 37.42 kg/m2 [facility] Oxygen saturation in 2020-12-08 15:48:00 97 /min [facility] Arterial blood by Pulse oximetry Respitory Rate 2020-08-30 13:00:00 Memori al [place] Systolic (mm Hg) 2020-08-30 13:00:00 Caesar rial Marty Diastolic (mm Hg) 2020-08-30 13:00:00 Mem orial Marty Systolic (mm Hg) 2020-08-30 11:00:00 Caesar rial [place] Diastolic (mm Hg) 2020-08-30 11:00:00 Mem orial [place] Temperature Oral (F) 2020-08-30 11:00:00 98.4 F [facility] [place] Respitory Rate 2020-08-30 11:00:00 Memori al [facility] Respitory Rate 2020-08-30 10:00:00 Memori al [place] Systolic (mm Hg) 2020-08-30 10:00:00 Caesar rial Marty Diastolic (mm Hg) 2020-08-30 10:00:00 Mem orial [place] Temperature Oral (F) 2020-08-30 00:00:00 96.9 F [facility] Temperature Oral (F) 2020-08-29 11:26:00 97.6 F [facility] Marty Height 2020-08-29 10:30:00 162.56 cm [facility] Weight 2020-08-29 10:30:00 [facility] BMI Calculated 2020-08-29 10:30:00 Darien Hammond Procedures Procedure Date / Time Performing Clinician Source Performed URINALYSIS 2022-05-10 19:36:00 Home Matthews [facility] TROPONIN I 2022-05-10 18:34:00 Home Matthews [facility] COMP. METABOLIC PANEL 2022-05-10 18:34:00 Home Matthews [facility] ([id number]) [facility] CBC WITH DIFF 2022-05-10 18:34:00 Home Matthews [facility] XR CHEST 2 VW 2022-05-10 17:24:58 Home Matthews [facility] CONSENT/REFUSAL FOR 2022-05-10 16:26:23 Doctor Unassigned, [facility] DIAGNOSIS AND TREATMENT [place] [facility] CONSENT/REFUSAL FOR 2022-05-10 16:26:09 Doctor Unassigned, [facility] DIAGNOSIS AND TREATMENT [place] [facility] URINALYSIS 2022-05-08 22:43:[address] [facility] XR CHEST 2 VW 2022-05-06 22:56:53 Anette Olea [facility] COMP. METABOLIC PANEL 2022-05-06 22:14:00 Anette Olea [facility] ([id number]) Medical Branch CBC WITH DIFF 2022-05-06 22:14:00 Anette Olea [facility] COVID-19 (ID NOW RAPID 2022-05-06 22:14:00 Anette Olea [facility] TESTING) Medical Branch BASIC METABOLIC PANEL (NA, 2022-04-22 21:23:00 Paulette Gray [facility] K, CL, CO2, GLUCOSE, BUN, Medica l Branch CREATININE, CA) CBC WITH DIFF 2022-04-22 21:23:00 Paulette Gray [facility] CONSENT/REFUSAL FOR 2022-04-22 19:45:46 Doctor Unassigned, [facility] DIAGNOSIS AND TREATMENT [place] [facility] Branch SARS-COV-2 COVID-19 2022-03-05 16:09:27 [facility] DIMITRIS-SUCROSE VACCINE [address] [place] [address] YRS+, BIVALENT 0.3ML, IM, (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) FLU 2022-03-05 16:09:27 [facility] VACC(),65+YR,0.5 Medica l Branch ML,IM,ADJUVANTED,QUAD(FLUA D) FLU 2022-03-05 16:09:27 [facility] VACC(),65+YR,0.5 Medica l Branch ML,IM,ADJUVANTED,QUAD(FLUA D) SARS-COV-2 COVID-19 2022-03-05 16:09:27 [facility] DIMITRIS-SUCROSE VACCINE [address] [place] [address] YRS+, BIVALENT 0.3ML, IM, (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) MAGNESIUM 2022-02-15 09:41:00 Radha Sofia [facility] BASIC METABOLIC PANEL (NA, 2022-02-15 09:41:00 Sofia Garcia [facility] K, CL, CO2, GLUCOSE, BUN, Medica l Branch CREATININE, CA) CBC WITH DIFF 2022-02-15 09:41:00 Sofia Garcia [facility] N-TERMINAL PRO-BNP 2022-02-15 09:41:00 Sofia Garcia [facility] CBC WITH DIFF 2022-02-15 09:41:00 Sofia Garcia [facility] BASIC METABOLIC PANEL (NA, 2022-02-15 09:41:00 Sofia Garcia [facility] K, CL, CO2, GLUCOSE, BUN, Medica l Branch CREATININE, CA) MAGNESIUM 2022-02-15 09:41:00 Sofia Garcia [facility] N-TERMINAL PRO-BNP 2022-02-15 09:41:00 Sofia Garcia [facility] BASIC METABOLIC PANEL (NA, 2022-02-13 09:40:00 [facility], CL, CO2, GLUCOSE, BUN, Medica l Branch CREATININE, CA) CBC WITH DIFF 2022-02-13 09:40:00 Sofia Garcia [facility] BASIC METABOLIC PANEL (NA, 2022-02-13 09:40:00 [facility] K, CL, CO2, GLUCOSE, BUN, Medica l Branch CREATININE, CA) CBC WITH DIFF 2022-02-13 09:40:00 Radha [facility] TROPONIN I 2022-02-11 23:41:00 Radha [facility] N-TERMINAL PRO-BNP 2022-02-11 23:41:00 [facility] 2022-02-11 23:41:00 Radha [facility] N-TERMINAL PRO-BNP 2022-02-11 23:41:00 Sofia Garcia [facility] HB ECG ROUTINE & RHYTHM 2022-02-11 22:15:36 [facility] 2022-02-11 21:26:50 [facility]TTE) 2022-02-11 21:26:50 [facility] PELVIS W 2022-02-11 07:45:43 Reilly Means [facility] CT ABDOMEN PELVIS W 2022-02-11 07:45:43 Reilly Means [facility] CONTRAST [facility] RAPID INFLUENZA A/B 2022-02-11 06:54:00 Reilly Means [facility] RAPID INFLUENZA A/B 2022-02-11 06:54:00 Reilly Means [facility] URINALYSIS 2022-02-11 06:45:00 Reilly Means [place] [facility] URINE CULTURE 2022-02-11 06:45:00 Reilly Means [facility] URINALYSIS 2022-02-11 06:45:00 Reilly Means [facility] URINE CULTURE 2022-02-11 06:45:00 Reilly Means [facility] HB ECG ROUTINE & RHYTHM 2022-02-11 05:22:08 Reilly Means [facility] HB ECG ROUTINE & RHYTHM 2022-02-11 05:22:08 Reilly Means [facility] BLOOD CULTURE SCREEN 2022-02-11 04:58:00 Reilly Means [facility] TROPONIN I 2022-02-11 04:58:00 Reilly Means [facility] COMP. METABOLIC PANEL 2022-02-11 04:58:00 Reilly Means [facility] ([id number]) Medical Branch CBC WITH DIFF 2022-02-11 04:58:00 Reilly Means [facility] PROTHROMBIN TIME / INR 2022-02-11 04:58:00 Reilly Means [facility] ACTIVATED PARTIAL THRMPLAS 2022-02-11 04:58:00 Reilly Means [facility] N-TERMINAL PRO-BNP 2022-02-11 04:58:[address] [facility] LACTIC ACID WHOLE BLOOD 2022-02-11 04:58:00 Reilly Means [facility] COVID-19 (ID NOW RAPID 2022-02-11 04:58:00 Reilly Means [facility] TESTING) Medical Branch LAB ONLY COVID 2022-02-11 04:58:00 Reilly Means [facility] CBC WITH DIFF 2022-02-11 04:58:00 Reilly Means [facility] ACTIVATED PARTIAL THRMPLAS 2022-02-11 04:58:00 Reilly Means [facility] PROTHROMBIN TIME / INR 2022-02-11 04:58:00 Reilly Means [facility] COVID-19 (ID NOW RAPID 2022-02-11 04:58:00 Reilly Means [facility]) Medical Branch COMP. METABOLIC PANEL 2022-02-11 04:58:00 Reilly Means [facility] ([id number]) Medical Branch TROPONIN I 2022-02-11 04:58:00 Reilly Means [facility] N-TERMINAL PRO-BNP 2022-02-11 04:58:[address] [facility] BLOOD CULTURE SCREEN 2022-02-11 04:58:00 Reilly Means [facility] LACTIC ACID WHOLE BLOOD 2022-02-11 04:58:00 Reilly Means [facility] LAB ONLY COVID 2022-02-11 04:58:00 Reilly Means [facility] XR CHEST 1 2022-02-11 04:27:42 Miguelangel Reilly [facility] XR CHEST 1 2022-02-11 04:27:42 Reilly Means [facility] HOSPITAL ADMISSION 2022-02-10 05:01:00 Doctor Unassigned, [facility] [place] [facility] HOSPITAL ADMISSION 2022-02-10 05:01:00 Doctor Unassigned, [facility] Name [facility] ECG 12-LEAD 2021-07-14 15:14:[address] [facility] [id number] 2021-06-17 00:00:00 RIKY Freedman [facility] GASTROINTESTINAL PANEL 2020-12-08 22:21:00 Eliseo Arce [facility] XR ABDOMEN 1 VW 2020-12-08 18:06:32 Eliseo Arce spital [place] < 1 HOUR 2020-09-05 22:39:00 Eliseo Arce spital SURGICAL PATHOLOGY REQUEST 2020-09-05 21:54:00 Eliseo Arce [facility] XR CHEST 1 VW PORTABLE 2020-09-05 19:55:00 Eliseo Arce [facility] DISCHARGE PATIENT 2020-09-05 17:27:55 [facility] [place] [facility] 2020-09-05 16:47:23 [facility], INTRAOPERATIVE 2020-09-05 16:27:00 Eliseo Arce [facility] PARTIAL THROMBOPLASTIN 2020-09-05 15:04:00 [facility] TIME (PTT) M. PROTHROMBIN TIME WITH INR 2020-09-05 15:04:00 [facility] M. Plan of Care Planned Activity Planned Date Details Comments Source Future Scheduled 2022-06-11 SHINGLES VACCINES (1 Met [facility] Test 16:10:12 of 2) [code = SHINGLES VACCINES (1 of 2)] Future Scheduled 2022-06-11 BREAST CANCER [facility] Test 16:10:12 SCREENING [code = BREAST CANCER SCREENING] Future Scheduled 2022-06-11 COLONOSCOPY SCREENING [facility] Test 16:10:12 [code = COLONOSCOPY SCREENING] Future Scheduled 2022-06-11 HEPATITIS B VACCINES Met [facility] Test 16:10:12 (1 of 3 - Risk 3-dose series) [code = HEPATITIS B VACCINES (1 of 3 - Risk 3-dose series)] Future Scheduled 2022-06-11 COVID-19 VACCINE (3 - [facility] Test 16:10:12 Booster for Pfizer series) [code = COVID-19 VACCINE (3 - Booster for Pfizer series)] Future Scheduled 2022-06-11 65+ PNEUMOCOCCAL [facility] Test 16:10:12 VACCINE (4 - PPSV23 if available, else PCV20) [code = 65+ PNEUMOCOCCAL VACCINE (4 - PPSV23 if available, else PCV20)] Future Scheduled 2022-06-11 INFLUENZA VACCINE Method new [facility] Test 16:10:12 [code = INFLUENZA VACCINE] Future Scheduled 2022-06-11 SHINGLES VACCINES (1 Met [facility] Test 16:10:12 of 2) [code = SHINGLES VACCINES (1 of 2)] Future Scheduled 2022-06-11 BREAST CANCER [facility] Test 16:10:12 SCREENING [code = BREAST CANCER SCREENING] Future Scheduled 2022-06-11 COLONOSCOPY SCREENING [facility] Test 16:10:12 [code = COLONOSCOPY SCREENING] Future Scheduled 2022-06-11 HEPATITIS B VACCINES Met [facility] Test 16:10:12 (1 of 3 - Risk 3-dose series) [code = HEPATITIS B VACCINES (1 of 3 - Risk 3-dose series)] Future Scheduled 2022-06-11 COVID-19 VACCINE (3 - Me [facility] Test 16:10:12 Booster for Pfizer series) [code = COVID-19 VACCINE (3 - Booster for Pfizer series)] Future Scheduled 2022-06-11 65+ [facility]AL [facility] 16:10:12 VACCINE (4 - PPSV23 if available, else PCV20) [code = 65+ PNEUMOCOCCAL VACCINE (4 - PPSV23 if available, else PCV20)] Future Scheduled 2022-06-11 INFLUENZA VACCINE [facility] Test 16:10:12 [code = INFLUENZA VACCINE] Future Scheduled 2022-05-10 SHINGLES VACCINES (1 Met [facility] Test 10:21:35 of 2) [code = SHINGLES VACCINES (1 of 2)] Future Scheduled 2022-05-10 BREAST CANCER [facility] Test 10:21:35 SCREENING [code = BREAST CANCER SCREENING] Future Scheduled 2022-05-10 COLONOSCOPY SCREENING Me [facility] Test 10:21:35 [code = COLONOSCOPY SCREENING] Future Scheduled 2022-05-10 HEPATITIS B VACCINES Met [facility] Test 10:21:35 (1 of 3 - Risk 3-dose series) [code = HEPATITIS B VACCINES (1 of 3 - Risk 3-dose series)] Future Scheduled 2022-05-10 COVID-19 VACCINE (3 - [facility] Test 10:21:35 Booster for Pfizer series) [code = COVID-19 VACCINE (3 - Booster for Pfizer series)] Future Scheduled 2022-05-10 65[facility] 10:21:35 VACCINE (4 - PPSV23 if available, else PCV20) [code = 65+ PNEUMOCOCCAL VACCINE (4 - PPSV23 if available, else PCV20)] Future Scheduled 2022-05-10 INFLUENZA VACCINE [facility] Test 10:21:35 [code = INFLUENZA VACCINE] Future Scheduled 2022-05-10 SHINGLES VACCINES (1 Met [facility] Test 10:21:35 of 2) [code = SHINGLES VACCINES (1 of 2)] Future Scheduled 2022-05-10 BREAST CANCER [facility] Test 10:21:35 SCREENING [code = BREAST CANCER SCREENING] Future Scheduled 2022-05-10 COLONOSCOPY SCREENING Me [facility] Test 10:21:35 [code = COLONOSCOPY SCREENING] Future Scheduled 2022-05-10 HEPATITIS B VACCINES Met [facility] Test 10:21:35 (1 of 3 - Risk 3-dose series) [code = HEPATITIS B VACCINES (1 of 3 - Risk 3-dose series)] Future Scheduled 2022-05-10 COVID-19 VACCINE (3 - Me [facility] Test 10:21:35 Booster for Pfizer series) [code = COVID-19 VACCINE (3 - Booster for Pfizer series)] Future Scheduled 2022-05-10 65+ PNEUMOCOCCAL [facility] Test 10:21:35 VACCINE (4 - PPSV23 if available, else PCV20) [code = 65+ PNEUMOCOCCAL VACCINE (4 - PPSV23 if available, else PCV20)] Future Scheduled 2022-05-10 INFLUENZA VACCINE Method [facility] Test 10:21:35 [code = INFLUENZA VACCINE] Future Scheduled 2022-05-06 SHINGLES VACCINES (1 Met [facility] Test 14:03:13 of 2) [code = SHINGLES VACCINES (1 of 2)] Future Scheduled 2022-05-06 BREAST CANCER [facility] Test 14:03:13 SCREENING [code = BREAST CANCER SCREENING] Future Scheduled 2022-05-06 COLONOSCOPY SCREENING [facility] Test 14:03:13 [code = COLONOSCOPY SCREENING] Future Scheduled 2022-05-06 HEPATITIS B VACCINES Met [facility] Test 14:03:13 (1 of 3 - Risk 3-dose series) [code = HEPATITIS B VACCINES (1 of 3 - Risk 3-dose series)] Future Scheduled 2022-05-06 COVID-19 VACCINE (3 - [facility] Test 14:03:13 Booster for Pfizer series) [code = COVID-19 VACCINE (3 - Booster for Pfizer series)] Future Scheduled 2022-05-06 65[facility]:03[facility] VACCINE (4 - PPSV23 if available, else PCV20) [code = 65+ PNEUMOCOCCAL VACCINE (4 - PPSV23 if available, else PCV20)] Future Scheduled 2022-05-06 INFLUENZA VACCINE Method [facility] Test 14:03:13 [code = INFLUENZA VACCINE] Future Scheduled 2022-04-30 SHINGLES VACCINES (1 Met [facility] Test 01:07:32 of 2) [code = SHINGLES VACCINES (1 of 2)] Future Scheduled 2022-04-30 BREAST CANCER [facility] Test 01:07:32 SCREENING [code = BREAST CANCER SCREENING] Future Scheduled 2022-04-30 COLONOSCOPY SCREENING [facility] Test 01:07:32 [code = COLONOSCOPY SCREENING] Future Scheduled 2022-04-30 HEPATITIS B VACCINES Met [facility] Test 01:07:32 (1 of 3 - Risk 3-dose series) [code = HEPATITIS B VACCINES (1 of 3 - Risk 3-dose series)] Future Scheduled 2022-04-30 COVID-19 VACCINE (3 - [facility] Test 01:07:32 Booster for Pfizer series) [code = COVID-19 VACCINE (3 - Booster for Pfizer series)] Future Scheduled 2022-04-30 65+ PNEUMOCOCCAL [facility] Test 01:07:32 VACCINE (4 - PPSV23 if available, else PCV20) [code = 65+ PNEUMOCOCCAL VACCINE (4 - PPSV23 if available, else PCV20)] Future Scheduled 2022-04-30 INFLUENZA VACCINE Method [facility] Test 01:07:32 [code = INFLUENZA VACCINE] Future Scheduled 2022-04-30 SHINGLES VACCINES (1 Met [facility] Test 01:07:32 of 2) [code = SHINGLES VACCINES (1 of 2)] Future Scheduled 2022-04-30 BREAST CANCER [facility] Test 01:07:32 SCREENING [code = BREAST CANCER SCREENING] Future Scheduled 2022-04-30 COLONOSCOPY SCREENING [facility] Test 01:07:32 [code = COLONOSCOPY SCREENING] Future Scheduled 2022-04-30 HEPATITIS B VACCINES Met [facility] Test 01:07:32 (1 of 3 - Risk 3-dose series) [code = HEPATITIS B VACCINES (1 of 3 - Risk 3-dose series)] Future Scheduled 2022-04-30 COVID-19 VACCINE (3 - Me [facility] Test 01:07:32 Booster for Pfizer series) [code = COVID-19 VACCINE (3 - Booster for Pfizer series)] Future Scheduled 2022-04-30 65[facility] 01:07:[facility] VACCINE (4 - PPSV23 if available, else PCV20) [code = 65+ PNEUMOCOCCAL VACCINE (4 - PPSV23 if available, else PCV20)] Future Scheduled 2022-04-30 INFLUENZA VACCINE [facility] Test 01:07:32 [code = INFLUENZA VACCINE] Future Scheduled 2022-04-30 SHINGLES VACCINES (1 Met [facility] Test 01:07:32 of 2) [code = SHINGLES VACCINES (1 of 2)] Future Scheduled 2022-04-30 BREAST CANCER [facility] Test 01:07:32 SCREENING [code = BREAST CANCER SCREENING] Future Scheduled 2022-04-30 COLONOSCOPY SCREENING [facility] Test 01:07:32 [code = COLONOSCOPY SCREENING] Future Scheduled 2022-04-30 HEPATITIS B VACCINES Met [facility] Test 01:07:32 (1 of 3 - Risk 3-dose series) [code = HEPATITIS B VACCINES (1 of 3 - Risk 3-dose series)] Future Scheduled 2022-04-30 COVID-19 VACCINE (3 - [facility] Test 01:07:32 Booster for Pfizer series) [code = COVID-19 VACCINE (3 - Booster for Pfizer series)] Future Scheduled 2022-04-30 65+ PNEUMOCOCCAL [facility] Test 01:07:32 VACCINE (4 - PPSV23 if available, else PCV20) [code = 65+ PNEUMOCOCCAL VACCINE (4 - PPSV23 if available, else PCV20)] Future Scheduled 2022-04-30 INFLUENZA VACCINE Method [facility] Test 01:07:32 [code = INFLUENZA VACCINE] Future Scheduled 2022-04-25 SHINGLES VACCINES (1 Met [facility] Test 01:45:02 of 2) [code = SHINGLES VACCINES (1 of 2)] Future Scheduled 2022-04-25 BREAST CANCER [facility] Test 01:45:02 SCREENING [code = BREAST CANCER SCREENING] Future Scheduled 2022-04-25 COLONOSCOPY SCREENING [facility] Test 01:45:02 [code = COLONOSCOPY SCREENING] Future Scheduled 2022-04-25 HEPATITIS B VACCINES Met [facility] Test 01:45:02 (1 of 3 - Risk 3-dose series) [code = HEPATITIS B VACCINES (1 of 3 - Risk 3-dose series)] Future Scheduled 2022-04-25 COVID-19 VACCINE (3 - [facility] Test 01:45:02 Booster for Pfizer series) [code = COVID-19 VACCINE (3 - Booster for Pfizer series)] Future Scheduled 2022-04-25 65+ PNEUMOCOCCAL [facility] Test 01:45:02 VACCINE (4 - PPSV23 if available, else PCV20) [code = 65+ PNEUMOCOCCAL VACCINE (4 - PPSV23 if available, else PCV20)] Future Scheduled 2022-04-25 INFLUENZA VACCINE Method [facility] Test 01:45:02 [code = INFLUENZA VACCINE] Future Scheduled 2022-03-25 SHINGLES VACCINES (1 Met [facility] Test 14:48:42 of 2) [code = SHINGLES VACCINES (1 of 2)] Future Scheduled 2022-03-25 BREAST CANCER [facility] Test 14:48:42 SCREENING [code = BREAST CANCER SCREENING] Future Scheduled 2022-03-25 COLONOSCOPY SCREENING [facility] Test 14:48:42 [code = COLONOSCOPY SCREENING] Future Scheduled 2022-03-25 HEPATITIS B VACCINES Met [facility] Test 14:48:42 (1 of 3 - Risk 3-dose series) [code = HEPATITIS B VACCINES (1 of 3 - Risk 3-dose series)] Future Scheduled 2022-03-25 COVID-19 VACCINE (3 - [facility] Test 14:48:42 Booster for Pfizer series) [code = COVID-19 VACCINE (3 - Booster for Pfizer series)] Future Scheduled 2022-03-25 65[facility] 14:48:42 VACCINE (4 - PPSV23 if available, else PCV20) [code = 65+ PNEUMOCOCCAL VACCINE (4 - PPSV23 if available, else PCV20)] Future Scheduled 2022-03-25 INFLUENZA VACCINE Method [facility] Test 14:48:42 [code = INFLUENZA VACCINE] Future Scheduled 2022-03-25 SHINGLES VACCINES (1 Met [facility] Test 14:48:42 of 2) [code = SHINGLES VACCINES (1 of 2)] Future Scheduled 2022-03-25 BREAST CANCER [facility] Test 14:48:42 SCREENING [code = BREAST CANCER SCREENING] Future Scheduled 2022-03-25 COLONOSCOPY SCREENING [facility] Test 14:48:42 [code = COLONOSCOPY SCREENING] Future Scheduled 2022-03-25 HEPATITIS B VACCINES Met [facility] Test 14:48:42 (1 of 3 - Risk 3-dose series) [code = HEPATITIS B VACCINES (1 of 3 - Risk 3-dose series)] Future Scheduled 2022-03-25 COVID-19 VACCINE (3 - [facility] Test 14:48:42 Booster for Pfizer series) [code = COVID-19 VACCINE (3 - Booster for Pfizer series)] Future Scheduled 2022-03-25 65[facility] 14:48[facility] VACCINE (4 - PPSV23 if available, else PCV20) [code = 65+ PNEUMOCOCCAL VACCINE (4 - PPSV23 if available, else PCV20)] Future Scheduled 2022-03-25 INFLUENZA VACCINE Method [facility] Test 14:48:42 [code = INFLUENZA VACCINE] Future Scheduled 2022-03-25 SHINGLES VACCINES (1 Met [facility] Test 14:48:42 of 2) [code = SHINGLES VACCINES (1 of 2)] Future Scheduled 2022-03-25 BREAST CANCER [facility] Test 14:48:42 SCREENING [code = BREAST CANCER SCREENING] Future Scheduled 2022-03-25 COLONOSCOPY SCREENING [facility] Test 14:48:42 [code = COLONOSCOPY SCREENING] Future Scheduled 2022-03-25 HEPATITIS B VACCINES Met [facility] Test 14:48:42 (1 of 3 - Risk 3-dose series) [code = HEPATITIS B VACCINES (1 of 3 - Risk 3-dose series)] Future Scheduled 2022-03-25 COVID-19 VACCINE (3 - Me [facility] Test 14:48:42 Booster for Pfizer series) [code = COVID-19 VACCINE (3 - Booster for Pfizer series)] Future Scheduled 2022-03-25 65+ [facility] 14:48:42 VACCINE (4 - PPSV23 if available, else PCV20) [code = 65+ PNEUMOCOCCAL VACCINE (4 - PPSV23 if available, else PCV20)] Future Scheduled 2022-03-25 INFLUENZA VACCINE Method [facility] Test 14:48:42 [code = INFLUENZA VACCINE] Future Scheduled 2022-03-25 SHINGLES VACCINES (1 Met [facility] Test 14:48:42 of 2) [code = SHINGLES VACCINES (1 of 2)] Future Scheduled 2022-03-25 BREAST CANCER [facility] Test 14:48:42 SCREENING [code = BREAST CANCER SCREENING] Future Scheduled 2022-03-25 COLONOSCOPY SCREENING [facility] Test 14:48:42 [code = COLONOSCOPY SCREENING] Future Scheduled 2022-03-25 HEPATITIS B VACCINES Met [facility] Test 14:48:42 (1 of 3 - Risk 3-dose series) [code = HEPATITIS B VACCINES (1 of 3 - Risk 3-dose series)] Future Scheduled 2022-03-25 COVID-19 VACCINE (3 - [facility] Test 14:48:42 Booster for Pfizer series) [code = COVID-19 VACCINE (3 - Booster for Pfizer series)] Future Scheduled 2022-03-25 65+ [facility] 14:48:42 VACCINE (4 - PPSV23 if available, else PCV20) [code = 65+ PNEUMOCOCCAL VACCINE (4 - PPSV23 if available, else PCV20)] Future Scheduled 2022-03-25 INFLUENZA VACCINE Method [facility] Test 14:48:42 [code = INFLUENZA VACCINE] Future Scheduled 2022-03-25 SHINGLES VACCINES (1 Met [facility] Test 14:48:42 of 2) [code = SHINGLES VACCINES (1 of 2)] Future Scheduled 2022-03-25 BREAST CANCER [facility] Test 14:48:42 SCREENING [code = BREAST CANCER SCREENING] Future Scheduled 2022-03-25 COLONOSCOPY SCREENING [facility] Test 14:48:42 [code = COLONOSCOPY SCREENING] Future Scheduled 2022-03-25 HEPATITIS B VACCINES Met [facility] Test 14:48:42 (1 of 3 - Risk 3-dose series) [code = HEPATITIS B VACCINES (1 of 3 - Risk 3-dose series)] Future Scheduled 2022-03-25 COVID-19 VACCINE (3 - [facility] Test 14:48:42 Booster for Pfizer series) [code = COVID-19 VACCINE (3 - Booster for Pfizer series)] Future Scheduled 2022-03-25 65+ [facility] 14:48:42 VACCINE (4 - PPSV23 if available, else PCV20) [code = 65+ PNEUMOCOCCAL VACCINE (4 - PPSV23 if available, else PCV20)] Future Scheduled 2022-03-25 INFLUENZA VACCINE Method [facility] Test 14:48:42 [code = INFLUENZA VACCINE] Future Scheduled 2022-03-25 SHINGLES VACCINES (1 Met [facility] Test 14:48:42 of 2) [code = SHINGLES VACCINES (1 of 2)] Future Scheduled 2022-03-25 BREAST CANCER [facility] Test 14:48:42 SCREENING [code = BREAST CANCER SCREENING] Future Scheduled 2022-03-25 COLONOSCOPY SCREENING Me [facility] Test 14:48:42 [code = COLONOSCOPY SCREENING] Future Scheduled 2022-03-25 HEPATITIS B VACCINES Met [facility] Test 14:48:42 (1 of 3 - Risk 3-dose series) [code = HEPATITIS B VACCINES (1 of 3 - Risk 3-dose series)] Future Scheduled 2022-03-25 COVID-19 VACCINE (3 - [facility] Test 14:48:42 Booster for Pfizer series) [code = COVID-19 VACCINE (3 - Booster for Pfizer series)] Future Scheduled 2022-03-25 65+ [facility]AL [facility] 14:48:42 VACCINE (4 - PPSV23 if available, else PCV20) [code = 65+ PNEUMOCOCCAL VACCINE (4 - PPSV23 if available, else PCV20)] Future Scheduled 2022-03-25 INFLUENZA VACCINE Method [facility] Test 14:48:42 [code = INFLUENZA VACCINE] Future Scheduled 2022-03-25 SHINGLES VACCINES (1 Met [facility] Test 14:48:42 of 2) [code = SHINGLES VACCINES (1 of 2)] Future Scheduled 2022-03-25 [facility]ER [facility] Test 14:48:42 SCREENING [code = BREAST CANCER SCREENING] Future Scheduled 2022-03-25 COLONOSCOPY SCREENING [facility] Test 14:48:42 [code = COLONOSCOPY SCREENING] Future Scheduled 2022-03-25 HEPATITIS B VACCINES Met [facility] Test 14:48:42 (1 of 3 - Risk 3-dose series) [code = HEPATITIS B VACCINES (1 of 3 - Risk 3-dose series)] Future Scheduled 2022-03-25 COVID-19 VACCINE (3 - [facility] Test 14:48:42 Booster for Pfizer [...] Future Scheduled 2022-03-25 SHINGLES [facility]ACCINES ([facility] Test 14:48:42 of 2) [code = SHINGLES VACCINES (1 of 2)] Future Scheduled 2022-03-25 BREAST CANCER [facility] Test 14:48:42 SCREENING [code = BREAST CANCER SCREENING] Future Scheduled 2022-03-25 COLONOSCOPY SCREENING [facility] Test 14:48:42 [code = COLONOSCOPY SCREENING] Future Scheduled 2022-03-25 HEPATITIS B VACCINES Met [facility] Test 14:48:42 (1 of 3 - Risk 3-dose series) [code = HEPATITIS B VACCINES (1 of 3 - Risk 3-dose series)] Future Scheduled 2022-03-25 COVID-19 VACCINE (3 - [facility] Test 14:48:42 Booster for Pfizer series) [code = COVID-19 VACCINE (3 - Booster for Pfizer series)] Future Scheduled 2022-03-25 65[facility] 14:48:[facility] VACCINE (4 - PPSV23 if available, else PCV20) [code = 65+ PNEUMOCOCCAL VACCINE (4 - PPSV23 if available, else PCV20)] Future Scheduled 2022-03-25 INFLUENZA VACCINE Method [facility] Test 14:48:42 [code = INFLUENZA VACCINE] Future Scheduled 2022-03-25 SHINGLES VACCINES (1 Met [facility] Test 14:48:42 of 2) [code = SHINGLES VACCINES (1 of 2)] Future Scheduled 2022-03-25 BREAST CANCER [facility] Test 14:48:42 SCREENING [code = BREAST CANCER SCREENING] Future Scheduled 2022-03-25 COLONOSCOPY SCREENING [facility] Test 14:48:42 [code = COLONOSCOPY SCREENING] Future Scheduled 2022-03-25 HEPATITIS B VACCINES Met [facility] Test 14:48:42 (1 of 3 - Risk 3-dose series) [code = HEPATITIS B VACCINES (1 of 3 - Risk 3-dose series)] Future Scheduled 2022-03-25 COVID-19 VACCINE (3 - [facility] Test 14:48:42 Booster for Pfizer series) [code = COVID-19 VACCINE (3 - Booster for Pfizer series)] Future Scheduled 2022-03-25 65[facility] 14:48:42 VACCINE (4 - PPSV23 if available, else PCV20) [code = 65+ PNEUMOCOCCAL VACCINE (4 - PPSV23 if available, else PCV20)] Future Scheduled 2022-03-25 INFLUENZA VACCINE Method [facility] Test 14:48:42 [code = INFLUENZA VACCINE] Future Scheduled 2022-03-04 SHINGLES VACCINES (1 Met [facility] Test 14:03:57 of 2) [code = SHINGLES VACCINES (1 of 2)] Future Scheduled 2022-03-04 BREAST CANCER [facility] Test 14:03:57 SCREENING [code = BREAST CANCER SCREENING] Future Scheduled 2022-03-04 COLONOSCOPY SCREENING [facility] Test 14:03:57 [code = COLONOSCOPY SCREENING] Future Scheduled 2022-03-04 HEPATITIS B VACCINES Met [facility] Test 14:03:57 (1 of 3 - Risk 3-dose series) [code = HEPATITIS B VACCINES (1 of 3 - Risk 3-dose series)] Future Scheduled 2022-03-04 COVID-19 VACCINE (3 - [facility] Test 14:03:57 Booster for Pfizer series) [code = COVID-19 VACCINE (3 - Booster for Pfizer series)] Future Scheduled 2022-03-04 65[facility] 14:03:57 VACCINE (4 - PPSV23 if available, else PCV20) [code = 65+ PNEUMOCOCCAL VACCINE (4 - PPSV23 if available, else PCV20)] Future Scheduled 2022-03-04 INFLUENZA VACCINE Method [facility] Test 14:03:57 [code = INFLUENZA VACCINE] Future Scheduled 2022-03-04 SHINGLES VACCINES (1 Met [facility] Test 14:03:57 of 2) [code = SHINGLES VACCINES (1 of 2)] Future Scheduled 2022-03-04 BREAST CANCER [facility] Test 14:03:57 SCREENING [code = BREAST CANCER SCREENING] Future Scheduled 2022-03-04 COLONOSCOPY SCREENING [facility] Test 14:03:57 [code = COLONOSCOPY SCREENING] Future Scheduled 2022-03-04 HEPATITIS B VACCINES Met [facility] Test 14:03:57 (1 of 3 - Risk 3-dose series) [code = HEPATITIS B VACCINES (1 of 3 - Risk 3-dose series)] Future Scheduled 2022-03-04 COVID-19 VACCINE (3 - Me [facility] Test 14:03:57 Booster for Pfizer series) [code = COVID-19 VACCINE (3 - Booster for Pfizer series)] Future Scheduled 2022-03-04 65+ PNEUMOCOCCAL [facility] Test 14:03:57 VACCINE (4 - PPSV23 if available, else PCV20) [code = 65+ PNEUMOCOCCAL VACCINE (4 - PPSV23 if available, else PCV20)] Future Scheduled 2022-03-04 INFLUENZA VACCINE Method [facility] Test 14:03:57 [code = INFLUENZA VACCINE] Future Scheduled 2022-03-04 SHINGLES VACCINES (1 Met [facility] Test 14:03:57 of 2) [code = SHINGLES VACCINES (1 of 2)] Future Scheduled 2022-03-04 BREAST CANCER [facility] Test 14:03:57 SCREENING [code = BREAST CANCER SCREENING] Future Scheduled 2022-03-04 COLONOSCOPY SCREENING [facility] Test 14:03:57 [code = COLONOSCOPY SCREENING] Future Scheduled 2022-03-04 HEPATITIS B VACCINES [facility] Test 14:03:57 (1 of 3 - Risk 3-dose series) [code = HEPATITIS B VACCINES (1 of 3 - Risk 3-dose series)] Future Scheduled 2022-03-04 COVID-19 VACCINE (3 - [facility] Test 14:03:57 Booster for Pfizer series) [code = COVID-19 VACCINE (3 - Booster for Pfizer series)] Future Scheduled 2022-03-04 65+ PNEUMOCOCCAL [facility] Test 14:03:57 VACCINE (4 - PPSV23 if available, else PCV20) [code = 65+ PNEUMOCOCCAL VACCINE (4 - PPSV23 if available, else PCV20)] Future Scheduled 2022-03-04 INFLUENZA VACCINE Method [facility] Test 14:03:57 [code = INFLUENZA VACCINE] Future Scheduled 2022-03-04 SHINGLES VACCINES (1 Met [facility] Test 14:03:57 of 2) [code = SHINGLES VACCINES (1 of 2)] Future Scheduled 2022-03-04 BREAST CANCER [facility] Test 14:03:57 SCREENING [code = BREAST CANCER SCREENING] Future Scheduled 2022-03-04 COLONOSCOPY SCREENING [facility] Test 14:03:57 [code = COLONOSCOPY SCREENING] Future Scheduled 2022-03-04 HEPATITIS B VACCINES [facility] Test 14:03:57 (1 of 3 - Risk 3-dose series) [code = HEPATITIS B VACCINES (1 of 3 - Risk 3-dose series)] Future Scheduled 2022-03-04 COVID-19 VACCINE (3 - [facility] Test 14:03:57 Booster for Pfizer series) [code = COVID-19 VACCINE (3 - Booster for Pfizer series)] Future Scheduled 2022-03-04 65+ PNEUMOCOCCAL [facility] Test 14:03:57 VACCINE (4 - PPSV23 if available, else PCV20) [code = 65+ PNEUMOCOCCAL VACCINE (4 - PPSV23 if available, else PCV20)] Future Scheduled 2022-03-04 INFLUENZA VACCINE Method [facility] Test 14:03:57 [code = INFLUENZA VACCINE] Future Scheduled 2022-02-11 SHINGLES VACCINES (1 Met [facility] Test 13:39:12 of 2) [code = SHINGLES VACCINES (1 of 2)] Future Scheduled 2022-02-11 BREAST CANCER [facility] Test 13:39:12 SCREENING [code = BREAST CANCER SCREENING] Future Scheduled 2022-02-11 COLONOSCOPY SCREENING [facility] Test 13:39:12 [code = COLONOSCOPY SCREENING] Future Scheduled 2022-02-11 HEPATITIS B VACCINES Met [facility] Test 13:39:12 (1 of 3 - Risk 3-dose series) [code = HEPATITIS B VACCINES (1 of 3 - Risk 3-dose series)] Future Scheduled 2022-02-11 COVID-19 VACCINE (3 - [facility] Test 13:39:12 Booster for Pfizer series) [code = COVID-19 VACCINE (3 - Booster for Pfizer series)] Future Scheduled 2022-02-11 65+ PNEUMOCOCCAL [facility] Test 13:39:12 VACCINE (4 - PPSV23 or PCV20) [code = 65+ PNEUMOCOCCAL VACCINE (4 - PPSV23 or PCV20)] Future Scheduled 2022-02-11 INFLUENZA VACCINE Method [facility] Test 13:39:12 [code = INFLUENZA VACCINE] Future Scheduled 2022-01-29 SHINGLES VACCINES (1 Met [facility] Test 14:07:20 of 2) [code = SHINGLES VACCINES (1 of 2)] Future Scheduled 2022-01-29 BREAST CANCER [facility] Test 14:07:20 SCREENING [code = BREAST CANCER SCREENING] Future Scheduled 2022-01-29 COLONOSCOPY SCREENING [facility] Test 14:07:20 [code = COLONOSCOPY SCREENING] Future Scheduled 2022-01-29 HEPATITIS B VACCINES Met [facility] Test 14:07:20 (1 of 3 - Risk 3-dose series) [code = HEPATITIS B VACCINES (1 of 3 - Risk 3-dose series)] Future Scheduled 2022-01-29 COVID-19 VACCINE (3 - Me [facility] Test 14:07:20 Booster for Pfizer series) [code = COVID-19 VACCINE (3 - Booster for Pfizer series)] Future Scheduled 2022-01-29 65+ PNEUMOCOCCAL [facility] Test 14:07:20 VACCINE (4 - PPSV23 or PCV20) [code = 65+ PNEUMOCOCCAL VACCINE (4 - PPSV23 or PCV20)] Future Scheduled 2022-01-29 INFLUENZA VACCINE Method [facility] Test 14:07:20 [code = INFLUENZA VACCINE] Future Scheduled 2022-01-29 SHINGLES VACCINES (1 Met [facility] Test 14:07:20 of 2) [code = SHINGLES VACCINES (1 of 2)] Future Scheduled 2022-01-29 BREAST CANCER [facility] Test 14:07:20 SCREENING [code = BREAST CANCER SCREENING] Future Scheduled 2022-01-29 COLONOSCOPY SCREENING [facility] Test 14:07:20 [code = COLONOSCOPY SCREENING] Future Scheduled 2022-01-29 HEPATITIS B VACCINES Met [facility] Test 14:07:20 (1 of 3 - Risk 3-dose series) [code = HEPATITIS B VACCINES (1 of 3 - Risk 3-dose series)] Future Scheduled 2022-01-29 COVID-19 VACCINE (3 - Me [facility] Test 14:07:20 Booster for Pfizer series) [code = COVID-19 VACCINE (3 - Booster for Pfizer series)] Future Scheduled 2022-01-29 65+ PNEUMOCOCCAL [facility] Test 14:07:20 VACCINE (4 - PPSV23 or PCV20) [code = 65+ PNEUMOCOCCAL VACCINE (4 - PPSV23 or PCV20)] Future Scheduled 2022-01-29 INFLUENZA VACCINE Method [facility] Test 14:07:20 [code = INFLUENZA VACCINE] Future Scheduled 2022-01-29 SHINGLES VACCINES (1 Met [facility] Test 14:07:20 of 2) [code = SHINGLES VACCINES (1 of 2)] Future Scheduled 2022-01-29 BREAST CANCER [facility] Test 14:07:20 SCREENING [code = BREAST CANCER SCREENING] Future Scheduled 2022-01-29 COLONOSCOPY SCREENING [facility] Test 14:07:20 [code = COLONOSCOPY SCREENING] Future Scheduled 2022-01-29 HEPATITIS B VACCINES Met [facility] Test 14:07:20 (1 of 3 - Risk 3-dose series) [code = HEPATITIS B VACCINES (1 of 3 - Risk 3-dose series)] Future Scheduled 2022-01-29 COVID-19 VACCINE (3 - Me [facility] Test 14:07:20 Booster for Pfizer series) [code = COVID-19 VACCINE (3 - Booster for Pfizer series)] Future Scheduled 2022-01-29 65+ [facility] 14:07:20 VACCINE (4 - PPSV23 or PCV20) [code = 65+ PNEUMOCOCCAL VACCINE (4 - PPSV23 or PCV20)] Future Scheduled 2022-01-29 INFLUENZA VACCINE Method [facility] Test 14:07:20 [code = INFLUENZA VACCINE] Future Scheduled 2022-01-29 SHINGLES VACCINES (1 Met [facility] Test 14:07:20 of 2) [code = SHINGLES VACCINES (1 of 2)] Future Scheduled 2022-01-29 BREAST CANCER [facility] Test 14:07:20 SCREENING [code = BREAST CANCER SCREENING] Future Scheduled 2022-01-29 COLONOSCOPY SCREENING [facility] Test 14:07:20 [code = COLONOSCOPY SCREENING] Future Scheduled 2022-01-29 HEPATITIS B VACCINES Met [facility] Test 14:07:20 (1 of 3 - Risk 3-dose series) [code = HEPATITIS B VACCINES (1 of 3 - Risk 3-dose series)] Future Scheduled 2022-01-29 COVID-19 VACCINE (3 - [facility] Test 14:07:20 Booster for Pfizer series) [code = COVID-19 VACCINE (3 - Booster for Pfizer series)] Future Scheduled 2022-01-29 65+ [facility] Test 14:07:20 VACCINE (4 - PPSV23 or PCV20) [code = 65+ PNEUMOCOCCAL VACCINE (4 - PPSV23 or PCV20)] Future Scheduled 2022-01-29 INFLUENZA VACCINE Method [facility] Test 14:07:20 [code = INFLUENZA VACCINE] Future Scheduled 2022-01-20 SHINGLES VACCINES (1 Met [facility] Test 06:12:34 of 2) [code = SHINGLES VACCINES (1 of 2)] Future Scheduled 2022-01-20 Screening for [facility] Test 06:12:34 malignant neoplasm of cervix (procedure) [code = 704468105] Future Scheduled 2022-01-20 BREAST CANCER [facility] Test 06:12:34 SCREENING [code = BREAST CANCER SCREENING] Future Scheduled 2022-01-20 COLONOSCOPY SCREENING [facility] Test 06:12:34 [code = COLONOSCOPY SCREENING] Future Scheduled 2022-01-20 HEPATITIS B VACCINES Met [facility] Test 06:12:34 (1 of 3 - Risk 3-dose series) [code = HEPATITIS B VACCINES (1 of 3 - Risk 3-dose series)] Future Scheduled 2022-01-20 COVID-19 VACCINE (3 - [facility] Test 06:12:34 Booster for Pfizer series) [code = COVID-19 VACCINE (3 - Booster for Pfizer series)] Future Scheduled 2022-01-20 65+ PNEUMOCOCCAL [facility] Test 06:12:34 VACCINE (4 - PPSV23 or PCV20) [code = 65+ PNEUMOCOCCAL VACCINE (4 - PPSV23 or PCV20)] Future Scheduled 2022-01-20 INFLUENZA VACCINE Method [facility] Test 06:12:34 [code = INFLUENZA VACCINE] Future Scheduled 2022-01-16 SHINGLES VACCINES (1 Met [facility] Test 12:09:25 of 2) [code = SHINGLES VACCINES (1 of 2)] Future Scheduled 2022-01-16 Screening for [facility] Test 12:09:25 malignant neoplasm of cervix (procedure) [code = [id number]] Future Scheduled 2022-01-16 BREAST CANCER [facility] Test 12:09:25 SCREENING [code = BREAST CANCER SCREENING] Future Scheduled 2022-01-16 COLONOSCOPY SCREENING [facility] Test 12:09:25 [code = COLONOSCOPY SCREENING] Future Scheduled 2022-01-16 HEPATITIS B VACCINES Met [facility] Test 12:09:25 (1 of 3 - Risk 3-dose series) [code = HEPATITIS B VACCINES (1 of 3 - Risk 3-dose series)] Future Scheduled 2022-01-16 COVID-19 VACCINE (3 - [facility] Test 12:09:25 Booster for Pfizer series) [code = COVID-19 VACCINE (3 - Booster for Pfizer series)] Future Scheduled 2022-01-16 65+ PNEUMOCOCCAL [facility] Test 12:09:25 VACCINE (4 - PPSV23 or PCV20) [code = 65+ PNEUMOCOCCAL VACCINE (4 - PPSV23 or PCV20)] Future Scheduled 2022-01-16 INFLUENZA VACCINE Method [facility] Test 12:09:25 [code = INFLUENZA VACCINE] Future Scheduled 2022-01-14 SHINGLES VACCINES (1 Met [facility] Test 04:11:46 of 2) [code = SHINGLES VACCINES (1 of 2)] Future Scheduled 2022-01-14 Screening for [facility] Test 04:11:46 malignant neoplasm of cervix (procedure) [code = [id number]] Future Scheduled 2022-01-14 BREAST CANCER [facility] Test 04:11:46 SCREENING [code = BREAST CANCER SCREENING] Future Scheduled 2022-01-14 COLONOSCOPY SCREENING [facility] Test 04:11:46 [code = COLONOSCOPY SCREENING] Future Scheduled 2022-01-14 HEPATITIS B VACCINES Met [facility] Test 04:11:46 (1 of 3 - Risk 3-dose series) [code = HEPATITIS B VACCINES (1 of 3 - Risk 3-dose series)] Future Scheduled 2022-01-14 COVID-19 VACCINE (3 - [facility] Test 04:11:46 Booster for Pfizer series) [code = COVID-19 VACCINE (3 - Booster for Pfizer series)] Future Scheduled 2022-01-14 65+ PNEUMOCOCCAL [facility] Test 04:11:46 VACCINE (4 - PPSV23 or PCV20) [code = 65+ PNEUMOCOCCAL VACCINE (4 - PPSV23 or PCV20)] Future Scheduled 2022-01-14 INFLUENZA VACCINE Method [facility] Test 04:11:46 [code = INFLUENZA VACCINE] Future Scheduled 2021-08-26 Screening for [facility] Test 13:02:23 malignant neoplasm of cervix (procedure) [code = [id number]] Future Scheduled 2021-08-26 BREAST CANCER [facility] Test 13:02:23 SCREENING [code = BREAST CANCER SCREENING] Future Scheduled 2021-08-26 COLONOSCOPY SCREENING [facility] Test 13:02:23 [code = COLONOSCOPY SCREENING] Future Scheduled 2021-08-26 Screening for [facility] Test 13:02:23 malignant neoplasm of lung (procedure) [code = 807452793] Future Scheduled 2021-08-26 SHINGLES [facility]ACCINES (#[facility] 13:02:23 [code = SHINGLES VACCINES (#1)] Future Scheduled 2021-08-26 COVID-19 VACCINE (3 - [facility] Test 13:02:23 Pfizer risk 4-dose series) [...] Facility Department ID 2022-02-18 Outpatient CHW CHW [id number] [place] 14:30:[address] [place] [address] 2021-07-14 Outpatient SADIKOVIC, [facility] [id number] [place] 09:33:51 [facility] 2021-06-02 Outpatient HEMATPOUR, [facility] [id number] [place] 13:58:59 [facility] 2021-04-28 Outpatient HEMATPOUR, [facility] [id number] [place] 11:21:22 [facility] 2021-03-20 Emergency [facility] [id number] Univers [facility]12 Outpatient HEMATPOUR, [facility] [id number] [place] 08:16:46 [facility] 2020-10-31 Outpatient HEMATPOUR, [facility] [id number] [place] 09:44[facility] Outpatient HEMATPOUR, [facility] [id number] [place] 13:16:03 [facility] 2022-05-20 2022-05-20 Telephone [facility] 1.2.840.114 [id number] Univers 00:00:00 00:00:00 [facility] [id number] i [facility] [place] [id number] [address] [place] 2022-05-10 2022-05-10 Emergency [facility] [id number] Univers 10:30:00 16:31:00 HOME ity [facility] [place] 2022-05-10 2022-05-10 Emergency Byron, TRAUMA 1.2.840.114 [id number] Univers 10:30:00 16:31:00 [facility] [id number] it [place] [phone] [facility] [address] 2022-05-10 2022-05-10 Telephone [facility], [facility] 1.2.840.114 [id number] Univers 00:00:00 00:00:00 [facility] [id number] i ty [place] [id number] [address] 2022-05-08 2022-05-08 Emergency [facility] [id number] Univers 16:18:00 18:42:00 THERESA [facility] 2022-05-08 2022-05-08 [facility]ly [facility] 1.2.840.114 [id number] Univers 16:18:00 18:42:00 Theresa BULLOCK 350.1.13.10 ity [place] [id number] [address] 2022-05-07 2022-05-07 Telephone [facility] 1.2.840.114 [id number] Univers 00:00:00 00:00:00 [facility] 350.1.13.10 i ty [place] [id number] [address] 2022-05-06 2022-05-06 Emergency [facility] E[facility] [id number] Univers 14:13:00 18:19:00 ANETTE [facility] 2022-05-06 2022-05-06 Emergency [facility] 1.2.755.671 [id number] Univers 14:13:00 18:19:00 Anette BULLOCK 350.1.13.10 ity of [facility] 4.2.7.2.686 [facility] [id number] [place] [address] [place] 2022-05-06 2022-05-06 Telephone JOSÉ ANTONIO Cardenas 1.2.840.114 [id number] Univers 00:00:00 00:00:00 [facility] 350.1.13.10 i ty of CLINICS 4.2.7.2.686 [facility] [id number] [address] 2022-04-22 2022-04-22 Emergency X [facility] ERT [id number] Univers 13:55:00 17:00:00 PAULETTE ity of [facility] 2022-04-22 2022-04-22 Emergency [facility] 1.2.420.260 [id number] Univers 13:55:00 17:00:00 Paulette BULLOCK 350.1.13.10 i ty of [place] 4.2.7.2.686 [facility] [id number] [address] 2022-04-07 2022-04-07 Outpatient R [facility], [facility] [id number] Univers 20:40:00 20:40:00 ATTENDING ity of [facility] 2022-04-07 2022-04-07 Telephone Beltran, 1.2.840.5 [id number] Univers 00:00:00 00:00:00 Robbi Hairston 25877.1.1 i ty of 3.104.2.7 [place] .3.591412 Medica l .8 [place] 2022-03-05 2022-03-05 Earth Mover Santiago Cardenas 1.2.840.1 [id number] Univers 13:45:00 14:00:00 Visit [facility] 13757.1.1 ity of 3.104.2.7 [place] .3.628034 Medica l .8 [place] 2022-03-05 2022-03-05 Office JOSÉ ANTONIO Cardenas 1.2.168.950 [id number] Univers 13:00:00 13:30:00 Visit [facility] 350.1.13.10 i ty of CLINICS 4.2.7.2.686 Richi bach [id number] [facility] porfirio 089 [place] 2022-03-05 2022-03-05 Outpatient R [facility] [id number] Univers 13:00:00 13:00:00 SANTIAGO [facility] 2022-02-26 2022-02-26 Outpatient R [facility] [id number] Univers 08:30:00 08:30:00 [facility] 2022-02-26 2022-02-26 Outpatient R [facility] [id number] Univers 08:30:00 08:30:00 [facility] 2022-02-17 2022-02-17 Transition Stevo, 1.2.840.5 [id number] Univers 00:00:00 00:00:00 of Care Isaias Maria Elena 21017.1.1 it y of 3.104.2.7 [place] .3.579065 Medica l .8 [place] 2022-02-10 2022-02-16 Inpatient X [facility] [id number] Univers 22:59:00 19:27:00 TOMY ity [facility] [place] 2022-02-10 2022-02-16 Hospital Reilly Means 1.2.840.1 [id number] Univers 22:59:00 19:27:00 Encounter Ofe Shields 04217.1.1 ity of [place] 3.104.2.7 [place] .3.878424 Medica l .8 [place] 2022-02-11 2022-02-11 Telephone [facility], 1.2.840.8 [id number] Univers 00:00:00 00:00:00 Santiago 24906.1.1 ity of 3.104.2.7 [place] .3.198876 Medica l .8 [place] 2022-02-10 2022-02-10 Travel 1.2.840.1 1.2.783.811 [id number] Univers 00:00:00 00:00:00 74087.1.1 350.1.13.10 ity of 3.104.2.7 4[place].3.698 [place] .3.160231 084.8 Medica l .8 [place] 2022-01-30 2022-01-30 Telephone Ronald, 1.2.840.4 [id number] Univers 00:00:00 00:00:00 Santiago 64081.1.1 ity of 3.104.2.7 [place] .3.284472 Medica l .8 [place] 2022-01-06 2022-01-06 Orders Doctor FERMIN 1.2.840.114 [id number] Univers 00:00:00 00:00:00 Only Unassigned, JACKELINE 350.1.13.10 ity of [facility] 4.2.7.2.686 Yomi as [phone] [facility] [address] 2021-12-25 2021-12-25 Orders Doctor FERMIN 1.2.840.114 [id number] Univers 00:00:00 00:00:00 Only Unassigned, JACKELINE 350.1.13.10 ity of [facility] 4.2.7.2.686 Yomi as [id number] [facility] [address] 2021-12-12 2021-12-13 Emergency X Bill COLES [facility] ERT [id number] Univers 23:53:00 01:52:00 ity of [facility] 2021-12-12 2021-12-13 Emergency Bill Coles [facility] 1.2.840.114 [id number] Univers 23:53:00 01:52:00 Kiersten BULLOCK 350.1.13.10 i ty of [place]2.[place] [phone] [facility] [address] 2021-11-20 2021-11-20 Earth Mover [facility] UNIVERSIT 1.2.840.114 [id number] Univers 09:45:00 10:00:00 Visit Santiago Cardenas [facility] 350.1.13.10 ity of CL[place] 4[place] [id number] [facility] [address] 2021-11-20 2021-11-20 Office FRANCO Cardenas 1.2.185.587 [id number] Univers 08:30:00 09:00:00 Visit [facility] 350.1.13.10 i ty [facility] 4.2.7.2.686 [facility] [id number] [place] [address] [place] 2021-11-20 2021-11-20 Outpatient R RONALD [facility] [id number] Univers 08:30:00 08:30:00 [facility] [place] 2021-11-20 2021-11-20 Outpatient R RONALD [facility] [id number] Univers 08:30:00 08:30:00 [facility] 2021-11-20 2021-11-20 Outpatient R RONALD [facility] [id number] Univers 08:30:00 08:30:00 [facility] 2021-11-20 2021-11-20 Outpatient R [facility] [id number] Univers 08:30:00 08:30:00 [facility] 2021-10-24 2021-10-24 Emergency X THEELUID, [facility] ERT [id number] Univers 16:27:00 22:26:00 [facility] 2021-10-[facility] 2021-10-24 Emergency [facility] [id number] Univers 16:27:00 22:26:00 [facility] 2021-10-24 2021-10-[address] [facility] 1.2.840. 114 [id number] Univers 16:27:00 22:26:00 Charity Mcallister 350.1.13.10 ity [facility] 4.2.7.2.686 [facility] [id number] [address] 2021-10-23 2021-10-24 Emergency [facility] ERT [id number] Univers 20:22:00 02:57:00 [facility] 2021-10-23 2021-10-24 [facility] 1.2.830.154 [id number] Univers 20:22:00 02:57:00 Constantinezara Christian STUART 350.1.13.10 ity [facility] 4.2.7.2.686 [facility] [id number] [facility] 084 [place] 2021-09-07 2021-09-07 Outpatient R [facility], [facility] [id number] Univers 08:00:00 08:00:00 GADIEL barbosa o f [facility] 2021-09-07 2021-09-07 Outpatient R SELF, [facility] [id number] Univers 08:00:00 08:00:00 GADIEL barbosa o f [facility] 2021-08-21 2021-08-21 Outpatient R [facility] [id number] Univers 10:45:00 10:45:00 SANTIAGO barbosa [facility] [place] 2021-08-21 2021-08-21 Earth Mover Santiago Cardenas 1.2.840.1 [id number] Univers 10:45:00 10:45:00 Visit [facility] 38112.1.1 ity of 3.104.2.7 [place] .3.295232 Medica l .8 [place] 2021-08-21 2021-08-21 Office [place], 1.2.840.1 [id number] Univers 08:30:00 09:00:00 Visit Santiago 14365.1.1 ity of 3.104.2.7 [place] .3.418241 Medica l .8 [place] 2021-08-21 2021-08-21 Office East, UN[facility]ERS[facility] 1.2.586.134 [id number] Univers 08:30:00 09:00:00 Visit Santiago [facility] 350.1.13.10 i ty of [facility] 4.2.7.2.686 [facility] [phone] [facility] [address] 2021-08-21 2021-08-21 Outpatient R [facility] [id number] Univers 08:30:00 08:30:00 SANTIAGO barbosa [facility] [place] 2021-08-21 2021-08-21 Travel 1.2.840.1 1.2.815.374 [id number] Univers 00:00:00 00:00:00 87535.1.1 350.1.13.10 ity of 3.104.2.7 4[place].3.698 [place] .3.846431 084.8 Medica l .8 [place] 2021-08-14 2021-08-14 Telephone [place], 1.2.840.7 [id number] Univers 00:00:00 00:00:00 Santiago 99850.1.1 ity of 3.104.2.7 [place] .3.889417 Medica l .8 [place] 2021-08-13 2021-08-13 Telephone [place], 1.2.840.6 [id number] Univers 00:00:00 00:00:00 Santiago 00818.1.1 ity of 3.104.2.7 [place] .3.511857 Medica l .8 [place] 2021-08-11 2021-08-11 Outpatient [facility] [id number] Univers 08:00:00 08:00:00 [facility] 2021-08-05 2021-08-05 Inpatient Ashely, HCACL OUTD [id number] [facility] 05:24:00 05:24:00 Mike 31 [facility] 2021-07-20 2021-07-20 Outpatient [facility] [id number] Univers 10:00:00 10:00:00 [facility] 2021-07-14 2021-07-14 Office Pankaj, UTP 6400 1.2.840.114 [id number] [place] 08:45:00 09:34:[address] 350.1.13.58 Health 9.2.7.2.686 [id number] 1 2021-07-09 2021-07-09 Telephone [facility], UTP 6400 1.2.840.114 [id number] [place] 00:00:00 00:00:[address] 350.1.13.58 Health 9.2.7.2.686 [id number] 1 2021-07-09 2021-07-09 Telephone [facility], UTP 6400 1.2.840.114 [id number] [place] 00:00:00 00:00:00 Beverly RUIZ 350.1.13.58 Health 9.2.7.2.686 [id number] 1 2021-07-03 2021-07-03 Outpatient R EAST, [facility] [id number] Univers 08:00:00 08:00:00 SANTIAGO raheemcharlie [facility] [place] 2021-06-17 2021-06-17 Inpatient RAUL Lund, HCACL INTE.02 [id number] [facility] 10:56:00 14:36:00 Mike 47 [facility] 2021-06-15 2021-06-15 Outpatient R SELF, [facility] [id number] Univers 10:15:00 11:07:21 GADIEL vogel [facility] 2021-06-15 2021-06-15 Outpatient R SELF, [facility] [place] [id number] Univers 10:15:00 10:15:00 GADIEL barbosa [facility] 2021-06-15 2021-06-15 Outpatient R SELF, [facility] [place] [id number] Univers 10:15:00 10:15:00 GADIEL vogel [facility] 2021-06-15 2021-06-15 Orders Doctor 1.2.840.5 [id number] Univers 00:00:00 00:00:00 Only Unassigned, 24329.1.1 ity of [place] 3.104.2.7 [place] .3.426357 Medica l .8 [place] 2021-06-15 2021-06-15 Travel 1.2.840.1 1.2.010.763 [id number] Univers 00:00:00 00:00:00 07009.1.1 350.1.13.10 ity of 3[place]2.[place].698 [place] .3.179706 084.8 Medica l .8 [place] 2021-06-11 2021-06-11 [place], UNIVERSIT 1.2.957.455 [id number] Univers 00:00:00 00:00:00 [place] [facility] 350.1.13.10 i ty of [place] [id number] [place] [id number] [place] 2021-06-11 2021-06-11 Refill [place], 1.2.840.7 [id number] Univers 00:00:00 00:00:00 [place] 01821.1.1 ity of 3.104.2.7 [place] .3.750391 Medica l .8 [place] 2021-06-05 2021-06-05 Outpatient [facility] [id number] Univers 09:00:00 09:00:00 SANTIAGO ity of [facility] [place] [facility] 2021-06-02 2021-06-02 Telephone East, UNIVERSIT 1.2.840.114 [id number] Univers 00:00:00 00:00:00 Santiago [facility] 350.1.13.10 i [facility] 4.2.7.2.686 Richi bach [id number] [address] 2021-06-02 2021-06-02 Telephone East, 1.2.840.7 [id number] 903 [id number] Univers 00:00:00 00:00:00 Santiago 89830.1.1 ity of 3.104.2.7 [place] .3.962152 Medica l .8 Branch 2021-05-29 2021-05-29 Telephone East, 1.2.840.6 [id number] 902 [id number] Univers 00:00:00 00:00:00 Santiago 94705.1.1 ity of 3.104.2.7 [place] .3.090298 Medica l .8 [place] 2021-05-29 2021-05-29 Telephone East, 1.2.840.9 [id number] 902 [id number] Univers 00:00:00 00:00:00 Santiago 24140.1.1 ity of 3.104.2.7 [place] .3.804977 Medica l .8 [place] 2021-05-25 2021-05-25 Outpatient R RODO, [facility] [id number] Univers 08:00:00 08:00:00 GADIEL barbosa o f [facility] [place] [facility] 2021-04-29 2021-04-29 Outpatient Marika REEVES [facility] [id number] Univers 08:00:00 08:00:00 NIKOLAI familia [facility] [place] 2021-04-28 2021-04-28 Telephone Kinjal, [facility] 6400 1.2.840.114 [id number] [place] 00:00:00 00:00:[address] 350.1.13.58 Health 9.2.7.2.686 [id number] 1 2021-04-28 2021-04-28 Telephone Jailyn, 1.2.840.6 [id number] 21 [id number] Methodi 00:00:00 00:00:[address] 3.430.2.7 Hospit a .3.911349 l .8 2021-03-31 2021-03-31 Orders Carol Ann 1.2.840.1 [id number] 21 [id number] Methodi 00:00:00 00:00:00 Only Sarai Lieberman 52687.1.1 979 s t 3.430.2.7 Hospit a .3.213390 l .8 2021-03-30 2021-03-30 Outpatient [facility] [id number] Univers 08:45:00 08:45:00 GADIEL rodas [facility] [place] [facility] 2021-03-24 2021-03-24 Telephone Jailyn, 1.2.840.0 [id number] 21 [id number] Methodi 00:00:00 00:00:[address] 3.430.2.7 Hospit a .3.819645 l .8 2021-02-13 2021-02-13 Telephone Ronald, 1.2.840.9 [id number] 876 36353 Univers 00:00:00 00:00:00 Santiago 28691.1.1 ity 3.104.2.7 [place] .3.393327 Medica l .8 [place] 2021-01-28 2021-01-28 Outpatient [facility] [id number] Univers 08:45:00 09:37:00 NIKOLAI familia [facility] [place] 2021-01-28 2021-01-28 Travel 1.2.840.1 1.2.476.521 2417 9777 Univers 00:00:00 00:00:00 10027.1.1 350.1.13.10 ity of 3.104.2.7 4[place]7.3.698 [place] .3.195778 084.8 Medica l .8 Branch 2021-01-19 2021-01-19 Telephone Pelletier, 1.2.840.1 [id number] 2100 [id number] Method 00:00:00 00:00:[address] 3.430.2.7 Hospit a .3.694532 l .8 2021-01-04 2021-01-04 Dmitry Bass, 1.2.840.5 [id number] 22186 696 Univers 00:00:00 00:00:00 (Out) Dagoberto H 43828.1.1 ity of 3.104.2.7 [place] .3.380943 Medica l .8 Branch 2021-01-04 2021-01-04 Dmitry Bass, 1.2.840.4 [id number] 39301 696 Univers 00:00:00 00:00:00 (Out) Dagoberto H 53824.1.1 ity of 3.104.2.7 [place] .3.702070 Medica l .8 Branch 2021-01-03 2021-01-03 Dmitry Bass, 1.2.840.3 [id number] 42752 790 Univers 00:00:00 00:00:00 (Out) Dagoberto H 82235.1.1 ity of 3.104.2.7 [place] .3.623996 Medica l .8 Branch 2021-01-03 2021-01-03 Dmitry Bass, 1.2.840.7 [id number] 48885 790 Univers 00:00:00 00:00:00 (Out) Dagoberto H 51922.1.1 ity of 3.104.2.7 [place] .3.961154 Medica l .8 Branch 2021-01-02 2021-01-02 Outpatient R [facility] [id number] 786 Univers 13:40:00 13:40:00 ity of [facility] [place] [facility] 2021-01-02 2021-01-02 Laboratory Cuba Franks 1.2.840.5 [id number] [id number] Univers :: 12:57:34 Only Lab, [facility] Fam Pob I 62591.1.1 ity of 3.104.2.7 [place] .3.689749 Medica l .8 [place] 2021-01-02 2021-01-02 Laboratory Cuba Franks 1.2.840.3 [id number] Univers :: 12:57:34 Only Lab, [facility] F[place]ob I 85282.1.1 ity of 3.104.2.7 [place] .3.885030 Medica l .8 [place] 2021-01-02 2021-01-02 Travel 1.2.840.1 1.2.922.238 7605 2306 Univers 00:00:00 00:00:00 26696.1.1 350.1.13.10 ity of 3.104.2.7 4[place].7.3.698 [place] .3.941579 084.8 Medica l .8 [place] 2021-01-02 2021-01-02 Letter Doctor 1.2.840.4 [id number] 73969 948 Univers 00:00:00 00:00:00 (Out) Unassigned, 31372.1.1 ity of [place] 3.104.2.7 [place] .3.950956 Medica l .8 [place] 2021-01-02 2021-01-02 Letter Doctor 1.2.840.6 [id number] 05397 946 Univers 00:00:00 00:00:00 (Out) Unassigned, 34080.1.1 ity of [place] 3.104.2.7 [place] .3.842415 Medica l .8 [place] 2021-01-02 2021-01-02 Travel 1.2.840.1 1.2.651.952 3529 2306 Univers 00:00:00 00:00:00 45612.1.1 350.1.13.10 ity of 3.104.2.7 4.2.7.3.698 [place] .3.847164 084.8 Medica l .8 [place] 2021-01-02 2021-01-02 Letter Doctor 1.2.840.6 [id number] 12207 948 Univers 00:00:00 00:00:00 (Out) Unassigned, 76014.1.1 ity of [place] 3.104.2.7 [place] .3.738786 Medica l .8 [place] 2021-01-02 2021-01-02 Letter Doctor 1.2.840.0 [id number] 46154 946 Univers 00:00:00 00:00:00 (Out) Unassigned, 92577.1.1 ity of [place] 3.104.2.7 [place] .3.342933 Medica l .8 [place] 2020-12-22 2020-12-22 Telephone Beltran, 1.2.840.8 [id number] 862 46323 Univers 00:00:00 00:00:00 Eligionda R 98246.1.1 i ty of 3.104.2.7 [place] .3.893572 Medica l .8 [place] 2020-12-22 2020-12-22 Telephone Beltran, 1.2.840.4 [id number] 862 11379 Univers 00:00:00 00:00:00 Eligionda R 50333.1.1 i ty of 3.104.2.7 [place] .3.367537 Medica l .8 [place] 2020-12-12 2020-12-12 Office Hematpour, UTP 6400 1.2.840.114 [id number] [place] 07:42:02 08:18:[address] 350.1.13.58 Health 9.2.7.2.686 [id number] 1 2020-12-12 2020-12-12 Office Hematpour, UTP 6400 1.2.840.114 [id number] 07:42:02 08:18:[address] 350.1.13.58 9.2.7.2.686 [id number] 1 2020-12-09 2020-12-09 Telephone Meisenbach, 1.2.840.1 [id number] Methodi 00:00:00 00:00:00 Sarai Corbin. 49044.1.1 316 s t 3.430.2.7 Hospit a .3.562422 l .8 2020-12-08 2020-12-08 [facility], 1.2.840.1 [id number] 2100 398941 Methodi 12:35:54 23:59:00 Encounter Ray 22108.1.[address] 3.430.2.7 Hospit a .3.980234 l .8 2020-12-08 2020-12-08 Lab [facility], 1.2.840.1 [id number] 96838 15085 Methodi 17:25:00 17:30:[address] 3.430.2.7 Hospit a .3.218131 l .8 2020-12-08 2020-12-08 [facility], 1.2.840.1 [id number] 11285 57038 Methodi 10:30:00 11:39:56 Visit Ray 56882.1.[address] 3.430.2.7 Hospit a .3.495657 l .8 2020-12-08 2020-12-08 Travel 1.2.840.1 1.2.068.502 8254 153738 Methodi 00:00:00 00:00:[address] 3.430.2.7 0.2.7.3.698 Ho spita .3.571605 084.8 l .8 2020-12-02 2020-12-02 Earth Mover Santiago Cardenas 1.2.840.1 [id number] Univers 10:20:06 10:36:19 Visit [facility] 52029.1.1 ity of 3.104.2.7 [place] .3.409512 Medica l .8 [place] 2020-12-02 2020-12-02 Earth Mover Santiago Cardenas 1.2.840.[id number] [facility] 10:20:06 10:36:19 Visit [facility] 75976.1.1 ity of 3.104.2.7 [place] .3.637375 Medica l .8 [place] 2020-12-02 2020-12-02 Earth Mover [facility] UNIVERSIT 1.2.840.114 8 [id number] 10:20:06 10:36:19 Visit [facility] 350.1.13.10 [facility] 4.2.7.2.686 [id number] [facility] 2020-12-02 2020-12-02 Office [facility], 1.2.840.1 [id number] 50671 528 Univers 08:31:37 09:01:37 Visit Santiago 03533.1.1 ity of 3.104.2.7 [place] .3.733302 Medica l .8 [place] 2020-12-02 2020-12-02 Outpatient R [facility] [id number] Univers 09:00:00 09:00:00 SANTIAGO ity of [facility] [place] [facility] 2020-11-25 2020-11-25 Office Beltran, 1.2.840.9 [id number] 42585 865 Univers 11:06:30 11:58:14 Visit Eligiomeredith Hairston 57444.1.1 i ty of 3.104.2.7 [place] .3.144585 Medica l .8 [place] 2020-11-25 2020-11-25 Office Devin, 1.2.840.7 [id number] 09221 865 Univers 11:06:30 11:58:14 Visit Amarilisjolie Hairston 98634.1.1 i ty of 3.104.2.7 [place] .3.906207 Medica l .8 [place] 2020-11-25 2020-11-25 Office [facility] 1.2.840.114 [id number] 11:06:30 11:58:14 Visit Robbi Hairston JAIL OFFICER 350.1.13.10 [facility] 4.2.7.2.686 MATERNAL [id number] & CHILD [address] [place] [address] 2020-11-25 2020-11-25 Outpatient R [facility] [id number] Univers 11:00:00 11:00:00 ity of [facility] [place] [facility] 2020-11-25 2020-11-25 Telephone Beltran, 1.2.840.4 [id number] 855 [id number] Univers 00:00:00 00:00:00 Robbi Hairston 96727.1.1 i ty of 3.104.2.7 [place] .3.682923 Medica l .8 Branch 2020-11-25 2020-11-25 Refill East, 1.2.840.2 [id number] 78455 592 Univers 00:00:00 00:00:00 Santiago 56347.1.1 ity of 3.104.2.7 [place] .3.820320 Medica l .8 Branch 2020-11-25 2020-11-25 Travel 1.2.840.1 1.2.053.871 2982 0247 Univers 00:00:00 00:00:00 96633.1.1 350.1.13.10 ity of 3.104.2.7 4.2.7.3.698 [place] .3.064749 084.8 Medica l .8 Branch 2020-11-25 2020-11-25 Orders Doctor 1.2.840.4 [id number] 064 Univers 00:00:00 00:00:00 Only Unassigned, 96858.1.1 ity of [place] 3.104.2.7 [place] .3.080550 Medica l .8 Branch 2020-11-25 2020-11-25 Telephone Beltran, 1.2.840.1 [id number] 855 77296 Univers 00:00:00 00:00:00 Robbi Hairston 01022.1.1 i ty of 3.104.2.7 [place] .3.020242 Medica l .8 Branch 2020-11-25 2020-11-25 Refill East, 1.2.840.8 [id number] 60956 592 Univers 00:00:00 00:00:00 Santiago 12565.1.1 ity of 3.104.2.7 [place] .3.946845 Medica l .8 Branch 2020-11-25 2020-11-25 Travel 1.2.840.1 1.2.738.045 4166 0247 Univers 00:00:00 00:00:00 07528.1.1 350.1.13.10 ity of 3.104.2.7 4.2.7.3.698 [place] .3.492999 084.8 Medica l .8 Branch 2020-11-25 2020-11-25 Orders Doctor 1.2.840.0 [id number] 73442 064 Univers 00:00:00 00:00:00 Only Unassigned, 06637.1.1 ity of [place] 3.104.2.7 [place] .3.745251 Medica l .8 Branch 2020-11-25 2020[facility]11-[facility] 1.2.630.605 5328 4592 00:00:00 00:00:00 [facility] 350.1.13.10 [facility] 4.2.7.2.686 [id number] [facility] 2020-11-25 2020-11-25 Telephone [facility] 1.2.630.055 5270 0821 00:00:00 00:00:00 Robbi Hairston JAIL OFFICER 350.1.13.10 [facility] 4.2.7.2.686 MATERNAL [id number] & CHILD [address] [place] [address] 2020-11-14 2020-11-14 Abstract Clark, 1.2.840.1 [id number] 69442 41036 Methodi 00:00:00 00:00:[address] 3.430.2.7 Hospit a .3.996848 l .8 2020-11-14 2020-11-14 Telephone Clark 1.2.840.1 [id number] 2100 [id number] Methodi 00:00:00 00:00:[address] 3.430.2.7 Hospit a .3.666306 l .8 2020-11-12 2020-11-12 Outpatient [facility] [id number] 323 Univers 08:30:00 08:30:00 SANTIAGO barbosa [facility] [place] 2020-11-07 2020-11-07 Telephone Diana, Agustina UTP 6400 1.2.840.11 4 [id number] MO 00:00:00 00:00:[address] 350.1.13.58 Health 9.2.7.2.686 [id number] 1 2020-11-07 2020-11-07 Telephone Diana UTP 6400 1.2.840.114 124 [id number] 00:00:00 00:00:[address] 350.1.13.58 9.2.7.2.686 [id number] 1 2020-10-31 2020-10-31 Office Hematpour UTP 6400 1.2.840.114 12 [id number] MO 07:54:00 09:45:[address] 350.1.13.58 Health 9.2.7.2.686 [id number] 1 2020-10-30 2020-10-30 Abstract Rody Maguire UTP 6400 1.2.840.1 14 [id number] MO 00:00:00 00:00:[address] 350.1.13.58 Health 9.2.7.2.686 [id number] 1 2020-10-29 2020-10-29 Refill East, 1.2.840.9 [id number] 48055 400 Univers 00:00:00 00:00:00 Santiago 60048.1.1 ity of 3.104.2.7 [place] .3.691882 Medica l .8 [place] 2020-10-29 2020-10-29 Refill East, 1.2.840.0 [id number] 64504 400 Univers 00:00:00 00:00:00 Santiago 64650.1.1 ity of 3.104.2.7 [place] .3.874113 Medica l .8 Branch 2020-10-27 2020-10-27 Telephone Jailyn, 1.2.840.4 [id number] 21 [id number] Methodi 00:00:00 00:00:[address] 3.430.2.7 Hospit a .3.757292 l .8 2020-10-24 2020-10-24 Telephone Clark, 1.2.840.1 [id number] 2100 479278 Methodi 00:00:00 00:00:[address] 3.430.2.7 Hospit a .3.047319 l .8 2020-10-22 2020-10-22 Outpatient R SELF, [facility] [id number] Univers 13:00:00 13:00:00 GADIEL familia [facility] 2020-10-22 2020-10-22 Travel 1.2.840.1 1.2.571.733 8011 3839 Univers 00:00:00 00:00:00 11035.1.1 350.1.13.10 ity of 3.104.2.7 4.2.7.3.698 [place] .3.969020 084.8 Medica l .8 [place] 2020-10-22 2020-10-22 Travel 1.2.840.1 1.2.208.855 3562 3839 Univers 00:00:00 00:00:00 15192.1.1 350.1.13.10 ity of 3.104.2.7 4.2.7.3.698 [place] .3.034286 084.8 Medica l .8 [place] 2020-10-13 2020-10-13 Outpatient R SELF, [facility] [id number] Univers 08:45:00 08:45:00 GADIEL raheemcharlie [facility] 2020-10-06 2020-10-12 Telemedici Chihara, 1.2.840.1 [id number] 21 [id number] Methodi 15:30:00 00:08:46 ne Ray [address]252.1.[address] 3.430.2.7 Hospit a .3.512170 l .8 2020-09-30 2020-09-30 Telephone Jailyn, 1.2.840.1 [id number] 21 [id number] Methodi 00:00:00 00:00:[address] 3.430.2.7 Hospit a .3.074843 l .8 2020-09-21 2020-09-21 Travel 1.2.840.1 1.2.770.798 3501 654115 Methodi 00:00:00 00:00:[address] 3.430.2.7 0.2.7.3.698 Ho spita .3.802970 084.8 l .8 2020-09-06 2020-09-06 [facility] 1.2.840.1 [id number] 09928 45988 Methodi 17:42:30 23:59:[address] 3.430.2.7 Hospit a .3.418288 l .8 2020-09-06 2020-09-06 [facility], 1.2.840.1 [id number] 2099 [id number] Methodi 16:50:00 17:41:00 Encounter Ray [address]358.1.[address] 3.430.2.7 Hospit a .3.525535 l .8 2020-09-05 2020-09-05 [facility], 1.2.840.1 [id number] 2099 [id number] Methodi 09:17:00 19:45:00 Encounter Ray [address]18.1.[address] 3.430.2.7 Hospit a .3.976319 l .8 2020-09-05 2020-09-05 Surgery [facility], 1.2.840.1 [id number] 76185 21483 Methodi 11:30:00 13:15:[address] 3.430.2.7 Hospit a .3.655283 l .8 2020-09-05 2020-09-05 Anesthesia [facility], 1.2.840.1 [id number] 017 [id number] Methodi 11:27:00 12:20:00 Event Johnathanthi 97603.1.1 243 s t V. 3.430.2.7 Hospit a .3.426935 l .8 2020-09-05 2020-09-05 Travel 1.2.840.1 1.2.277.338 4794 249242 Methodi 00:00:00 00:00:[address] 3.430.2.7 0.2.7.3.698 Ho spita .3.478111 084.8 l .8 2020-09-04 2020-09-04 Telephone Meisenbach, 1.2.840.1 [id number] Methodi 00:00:00 00:00:00 Sarai Lieberman 49851.1.1 762 s t 3.430.2.7 Hospit a .3.936419 l .8 2020-09-02 2020-09-02 Telephone Meisenbach, 1.2.840.3 [id number] Methodi 00:00:00 00:00:00 Sarai Lieberman 93243.1.1 344 s t 3.430.2.7 Hospit a .3.483927 l .8 2020-08-29 2020-08-30 [id number] [facility] 10:20:00 14:10:00 Outpatient r Clarendon 00 l [facility] 2020-08-29 2020-08-30 Outpatient HEMATPOUR, [facility] CAR 7500 [facility] 05:20:00 09:10:00 BEVERLY 2020-08-06 2020-08-06 Office East, 1.2.840.4 [id number] 67821 416 Univers 08:03:23 09:17:49 Visit Santiago 72378.1.1 familia 3.104.2.7 [place] .3.412254 Medica l .8 Branch 2020-08-06 2020-08-06 Outpatient [facility] [id number] Univers 08:30:00 08:30:00 SANTIAGO barbosa of [facility] [place] [facility] 2020-07-14 2020-07-14 Outpatient R SELF, [facility] [id number] Univers 09:30:00 09:30:00 GADIEL barbosa o f [facility] [place] [facility] 2020-07-14 2020-07-14 Travel 1.2.840.1 1.2.675.423 6565 2575 Univers 00:00:00 00:00:00 82038.1.1 350.1.13.10 ity of 3.104.2.7 4.2.7.3.698 [place] .3.724828 084.8 Medica l .8 [place] 2020-07-14 2020-07-14 Orders Doctor 1.2.840.6 [id number] 309 Univers 00:00:00 00:00:00 Only Unassigned, 35841.1.1 ity of [place] 3.104.2.7 [place] .3.590970 Medica l .8 [place] 2020-06-16 2020-06-16 Outpatient R [facility] [id number] Univers 08:00:00 08:00:00 GADIEL barbosa o f [facility] [place] [facility] 2020-06-06 2020-06-06 Telephone Ronald, 1.2.840.9 [id number] 809 [id number] Univers 00:00:00 00:00:00 Santiago 64777.1.1 ity of 3.104.2.7 [place] .3.992638 Medica l .8 [place] 2020-06-04 2020-06-04 Earth Mover Santiago Cardenas 1.2.840.1 [id number] Univers 09:31:58 09:40:12 Visit [facility] 66748.1.1 ity of 3.104.2.7 [place] .3.417791 Medica l .8 [place] 2020-06-04 2020-06-04 Office JOSÉ ANTONIO Cardenas 1.2.637.372 6258 9729 Univers 08:13:41 09:28:25 Visit Santiago [facility] 350.1.13.10 i ty of CL[place] 4[place]2.7.2.[place] 162.9248614 [facility] porfirio 089 [place] 2020-06-04 2020-06-04 Outpatient R [facility] [id number] Univers 08:30:00 08:30:00 SANTIAGO itcharlie of [facility] [place] [facility] 2020-06-04 2020-06-04 Orders Doctor 1.2.840.5 [id number] 079 Univers 00:00:00 00:00:00 Only Unassigned, 07865.1.1 ity of [place] 3.104.2.7 [place] .3.947159 Medica l .8 [place] 2020-05-19 2020-05-19 Telephone East, 1.2.840.5 [id number] 804 [id number] Univers 00:00:00 00:00:00 Santiago 87432.1.1 ity of 3.104.2.7 [place] .3.694112 Medica l .8 [place] 2020-04-24 2020-04-24 Telephone East, 1.2.840.1 [id number] 799 [id number] Univers 00:00:00 00:00:00 Santiago 16321.1.1 ity of 3.104.2.7 [place] .3.547197 Medica l .8 [place] 2020-04-14 2020-04-14 Outpatient R EAST, [facility] [id number] Univers 09:00:00 09:00:00 SANTIAGO ity of [facility] [place] [facility] 2020-04-14 2020-04-14 Telephone East, 1.2.840.3 [id number] 797 [id number] Univers 00:00:00 00:00:00 Santiago 76724.1.1 ity of 3.104.2.7 [place] .3.488706 Medica l .8 [place] 2020-03-31 2020-03-31 Outpatient R [facility], [facility] [id number] Univers 08:30:00 08:30:00 SANTIAGO maciely of [facility] [place] [facility] 2020-03-03 2020-03-03 Outpatient R SELF, [facility] [id number] Univers 08:00:00 08:00:00 GADIEL barbosa o f [facility] [place] [facility] 2020-03-03 2020-03-03 Outpatient R SELF, [facility] [id number] Univers 08:00:00 08:00:00 GADIEL barbosa o f [facility] [place] [facility] 2020-03-03 2020-03-03 Travel 1.2.840.1 1.2.454.335 2003 5480 Univers 00:00:00 00:00:00 40122.1.1 350.1.13.10 ity of 3.104.2.7 4.2.7.3.698 [place] .3.407414 084.8 Medica l .8 [place] 2020-02-06 2020-02-06 Telephone East, 1.2.840.2 [id number] 781 [id number] Univers 00:00:00 00:00:00 Santiago 81721.1.1 ity of 3.104.2.7 [place] .3.788645 Medica l .8 [place] 2020-01-26 2020-01-26 Emergency Caridad, 1.2.840.4 [id number] 779 [id number] Univers 10:03:00 13:05:00 Cynise 61177.1.1 ity of 3.104.2.7 [place] .3.448728 Medica l .8 [place] 2020-01-26 2020-01-26 Travel 1.2.840.1 1.2.637.018 7823 0120 Univers 00:00:00 00:00:00 98384.1.1 350.1.13.10 ity of 3.104.2.7 4.2.7.3.698 [place] .3.106929 084.8 Medica l .8 [place] 2020-01-25 2020-01-25 Outpatient R [facility], [facility] [place] [id number] Univers 08:30:00 08:30:00 SANTIAGO ity of [facility] [place] [facility] 2020-01-25 2020-01-25 Telemedici [place], 1.2.840.5 [id number] Univers 07:36:49 08:06:49 ne Visit [place] 08871.1.1 ity of 3.104.2.7 [place] .3.655275 Medica l .8 [place] 2020-01-16 2020-01-16 Outpatient R [facility] [id number] Univers 08:00:00 08:00:00 SANTIAGO ity of [facility] [place] [facility] 2020-01-16 2020-01-16 Telephone East, 1.2.840.6 [id number] Univers 00:00:00 00:00:00 [place] 90860.1.1 ity of 3.104.2.7 [place] .3.550076 Medica l .8 [place] 2020-01-14 2020-01-14 Outpatient R SELF, [facility] [place] [id number] Univers 08:00:00 08:00:00 GADIEL rodas [facility] [place] [facility] 2019-12-31 2019-12-31 Outpatient R SELF, [facility] [place] [id number] Univers 08:45:00 08:45:00 GADIEL rodas [facility] [place] [facility] 2019-10-17 2019-10-17 Outpatient R EAST, [facility] [place] [id number] Univers 08:30:00 08:30:00 SANTIAGO barbosa [facility] [place] 2019-10-12 2019-10-12 Outpatient R EAST, [facility] [place] [id number] Univers 13:00:00 13:00:00 SANTIAGO barbosa [facility] [place] 2019-10-12 2019-10-12 Telemedici [place], 1.2.840.9 [id number] Univers 07:38:30 08:08:30 ne Visit [place] 14239.1.1 ity of 3.104.2.7 [place] .3.672888 Medica l .8 [place] 2019-10-08 2019-10-08 Outpatient R SELF, [facility] [place] [id number] Univers 10:15:00 10:15:00 GADIEL rodas [facility] [place] [facility] 2019-10-03 2019-10-03 Case Assman, 1.2.840.6 [id number] Univers 00:00:00 00:00:00 Management Michael Corbin 59464.1.1 i ty of 3.104.2.7 [place] .3.758224 Medica l .8 [place] 2019-09-27 2019-09-27 Telephone East, 1.2.840.6 [id number] Univers 00:00:00 00:00:00 [place] 01114.1.1 ity of 3.104.2.7 [place] .3.488704 Medica l .8 [place] 2019-09-04 2019-09-04 Refill East, 1.2.840.5 [id number] Univers 00:00:00 00:00:00 [place] 25631.1.1 ity of 3.104.2.7 [place] .3.302360 Medica l .8 [place] 2019-07-24 2019-07-24 Outpatient R [facility] [id number] Univers 08:30:00 08:30:00 SANTIAGO ity [facility] [place] 2019-07-17 2019-07-17 Outpatient R EAST, [facility] [place] [id number] Univers 10:00:00 10:00:00 SANTIAGO ity of [facility] [place] [facility] 2019-06-15 2019-06-15 Telephone East, 1.2.840.8 [id number] Univers 00:00:00 00:00:00 [place] 39126.1.1 ity of 3.104.2.7 [place] .3.993391 Medica l .8 [place] 2019-06-13 2019-06-13 Telephone Team, [facility] 1.2.840.3 [id number] Univers 00:00:00 00:00:00 Health 06320.1.1 [place] .3.149735 Med[place] .8 [place] 2019-05-10 2019-05-10 Refill Ronald, 1.2.840.6 [id number] Univers 00:00:00 00:00:00 [place] 67475.1.1 ity of 3.104.2.7 [place] .3.023376 Medica l .8 [place] 2019-05-09 2019-05-09 Refill Ronald, 1.2.840.7 [id number] Univers 00:00:00 00:00:00 [place] 55452.1.1 ity of 3.104.2.7 [place] .3.164478 Medica l .8 [place] 2019-04-30 2019-04-30 Outpatient R SELF, [facility] [place] [id number] Univers 10:15:00 10:33:05 GADIEL barbosa o f [facility] [place] [facility] 2019-04-18 2019-04-18 [employer] Yohan Cardenasrey 1.2.840.1 [id number] Univers 10:00:39 10:44:31 Visit [facility] 53002.1.1 ity of 3.104.2.7 [place] .3.078045 Medica l .8 [place] 2019-04-18 2019-04-18 [facility] [id number] Univers 10:00:00 10:44:31 SANTIAGO ity of [facility] [place] [facility] 2019-04-18 2019-04-18 Office East, 1.2.840.1 [id number] Univers 08:27:44 09:53:27 Visit [place] 79680.1.1 ity of 3.104.2.7 [place] .3.956895 Medica l .8 [place] 2019-04-18 2019-04-18 Orders Doctor 1.2.840.9 [id number] Univers 00:00:00 00:00:00 Only Unassigned, 40700.1.1 ity of [place] 3.104.2.7 [place] .3.303119 Medica l .8 [place] 2019-04-11 2019-04-11 Refill [place], 1.2.840.5 [id number] Univers 00:00:00 00:00:00 [place] 96609.1.1 ity of 3.104.2.7 [place] .3.597482 Medica l .8 [place] 2019-04-09 2019-04-09 Refill [place], 1.2.840.4 [id number] Univers 00:00:00 00:00:00 [place] 92822.1.1 ity of 3.104.2.7 [place] .3.650629 Medica l .8 Branch 2019-04-03 2019-04-03 Telephone Team, [facility] 1.2.840.4 [id number] Univers 00:00:00 00:00:00 Health 37879.1.1 [place]104.2.7 [place] .3.380111 Medica l .8 Branch 2019-03-27 2019-03-27 Telephone Self, 1.2.840.1 [id number] Univers 00:00:00 00:00:00 Gadiel 12471.1.1 ity of 3.104.2.7 [place] .3.614859 Medica l .8 Branch 2019-01-17 2019-01-17 Office East, 1.2.840.0 [id number] Univers 07:37:21 10:32:51 Visit Santiago 84642.1.1 ity of 3.104.2.7 [place] .3.970559 Medica l .8 Branch 2019-01-04 2019-01-12 Office Eveline Hansen 1.2.840.5 [id number] Univers 11:19:32 11:08:05 Visit Mariela 30310.1.1 ity of 3.104.2.7 [place] .3.780117 Medica l .8 Branch 2019-01-10 2019-01-10 Telephone Stanislav, 1.2.840.2 [id number] Univers 00:00:00 00:00:00 Eladio Inman 10533.1.1 ity of 3.104.2.7 [place] .3.285418 Medica l .8 Branch 2018-12-18 2018-12-18 Office Geraldine 1.2.840.3 [id number] Univers 08:48:45 09:13:43 Visit Leyda 18794.1.1 it y of 3.104.2.7 [place] .3.893831 Medica l .8 Branch 2018-10-30 2018-10-30 Telephone East, 1.2.840.1 [id number] Univers 00:00:00 00:00:00 Santiago 42426.1.1 ity of 3.104.2.7 [place] .3.481339 Medica l .8 Branch 2018-10-23 2018-10-23 Orders Doctor 1.2.840.8 [id number] Univers 00:00:00 00:00:00 Only Unassigned, 38911.1.1 ity of [place] 3.104.2.7 [place] .3.638125 Medica l .8 Branch 2018-10-23 2018-10-23 Nurse Selvin, 1.2.840.4 [id number] Univers 00:00:00 00:00:00 Triage Stefanie 31865.1.1 ity of 3.104.2.7 [place] .3.594743 Medica l .8 Branch 2018-10-23 2018-10-23 Telephone Self, 1.2.840.1 [id number] Univers 00:00:00 00:00:00 Gadiel 03807.1.1 ity of 3.104.2.7 [place] .3.695672 Medica l .8 Branch 2018-10-20 2018-10-20 Telephone Self, 1.2.840.6 [id number] Univers 00:00:00 00:00:00 Gadiel 57946.1.1 ity of 3.104.2.7 [place] .3.507326 Medica l .8 Branch Results Test Description Test Time Test Comments Results Result Comments Source COMP. METABOLIC PANEL (77733) 2022-05-06 22:42:55 Test Item Value Reference Range Interpretation Comme nts NA (test code = 6724355908) 137 mmol/L 135-145 K (test code = 6963267355) 3.2 mmol/L 3.5-5.0 L CL (test code = 7462942102) 100 mmol/L 98-108 CO2 TOTAL (test code = 8885306157) 23 mmol/L 23-31 AGAP (test code = 8926502326) 2-16 BUN (test code = 9070974477) 41 mg/dL 7-23 H GLUCOSE (test code = 8443704112) 98 mg/dL 70-110 CREATININE (test code = 1.55 mg/dL 0.50-1.04 H 6727465973) TOTAL BILI (test code = 0.8 mg/dL 0.1-1.7 1852957159) CALCIUM (test code = 4265646711) 8.3 mg/dL 8.6-10.6 L T PROTEIN (test code = 4239450893) 6.9 g/dL 6.3-8.2 ALBUMIN (test code = 0449538465) 3.9 g/dL 3.5-5.0 ALK PHOS (test code = 3979270398) 89 U/L 34-122 ALTv (test code = 1742-6) 101 U/L 5-35 H AST(SGOT) (test code = 9961642306) 203 U/L 13-40 H eGFR (test code = 4659120179) mL/min/1.73m2 KYLE (test code = KYLE) Association [...] tests). Lab Interpretation (test code = Abnormal 27639-3) [facility] WITH [id number] 22:33:52 Test Item Value Reference Range Interpretation Comments WBC (test code = See_Comment L [Automated 6961-2) message] The sy stem which generated this result transmitted reference range : 4.30 - 11.10 10*3/?L. The reference range was not used to interpret this result as normal/abnormal . RBC (test code = See_Comment [Automated 349-8) message] The sy stem which generated this [...] RDW-SD (test code = 46.3 fL 39.0-49.9 79960-5) RDW-CV (test code = 13.5 % 12.0-15.5 788-0) PLT (test code = See_Comment L [Automated 777-3) message] The sy stem which generated this result transmitted reference range : 166 - 358 10*3/ ?L. The reference r abbey was not used to interpret this result as normal/abnormal . MPV (test code = 9.5 fL 9.5-12.9 19831-5) NRBC/100 WBC (test See_Comment [Automat ed code = 0556374679) message] The system which generated this result transmitted reference range : 0.0 - 10.0 /100 WBCs. The refer ence range was not u sed to interpret th is result as normal/abnormal . NRBC x10^3 (test code See_Comment [Auto mated = 1736176774) message] The s ystem which generated this result transmitted reference range : 10*3/?L. The reference range was not used to interpret this result as normal/abnormal . GRAN MAT (NEUT) % 58.3 % (test code = 770-8) IMM GRAN % (test code 0.80 % = 7756468023) LYMPH % (test code = 28.1 % 736-9) MONO % (test code = 12.0 % 5905-5) EOS % (test code = 0.5 % 713-8) BASO % (test code = 0.3 % 706-2) GRAN MAT x10^3(ANC) 2.29 10*3/uL 1.88-7.09 (test code = 0680451234) IMM GRAN x10^3 (test 0.03 10*3/uL 0.00-0.06 code = 0719496033) LYMPH x10^3 (test code 1.10 10*3/uL 1.32-3.29 L = 731-0) MONO x10^3 (test code 0.47 10*3/uL 0.33-0.92 = 742-7) EOS x10^3 (test code = 0.03-0.39 L 711-2) BASO x10^3 (test code 0.01-0.07 = 704-7) Lab Interpretation Abnormal (test code = 75682-8) [facility] METABOLIC PANEL (NA, K, CL, CO2, GLUCOSE, BUN, CREATININE, CA)2022-04-22 21:43:42 Test Item Value Reference Range Interpretation Comments NA (test code = 142 mmol/L 135-145 0478440423) K (test code = 3.5 mmol/L 3.5-5.0 2139660131) CL (test code = 106 mmol/L 98-108 6061436221) CO2 TOTAL (test code = 26 mmol/L 23-31 3783941268) AGAP (test code = 2-16 7362123917) BUN (test code = 29 mg/dL 7-23 H 7667659323) GLUCOSE (test code = 84 mg/dL 70-110 3072923104) CREATININE (test code = 1.16 mg/dL 0.50-1.04 H 2357826661) CALCIUM (test code = 8.2 mg/dL 8.6-10.6 L 7723553362) eGFR (test code = mL/min/1.73m2 6324007405) KYLE (test code = KYLE) Association of [...] tests). Lab Interpretation Abnormal (test code = 84399-1) [facility] WITH [id number] 21:33:01 Test Item Value Reference Range Interpretation [...] (test code = 50.7 fL 39.0-49.9 H 77886-6) RDW-CV (test code = 14.6 % 12.0-15.5 788-0) PLT (test code = See_Comment L [Automated 777-3) message] The sy stem which generated this result transmitted reference range : 166 - 358 10*3/ ?L. The reference r abbey was not used to interpret this result as normal/abnormal . MPV (test code = 8.8 fL 9.5-12.9 L 41752-6) NRBC/100 WBC (test See_Comment [Automat ed code = 2470289889) message] The system which generated this result transmitted reference range : 0.0 - 10.0 /100 WBCs. The refer ence range was not u sed to interpret th is result as normal/abnormal . NRBC x10^3 (test code See_Comment [Auto mated = 1240498051) message] The s ystem which generated this result transmitted reference range : 10*3/?L. The reference range was not used to interpret this result as normal/abnormal . GRAN MAT (NEUT) % 70.9 % (test code = 770-8) IMM GRAN % (test code 0.50 % = 3030399668) LYMPH % (test code = 17.4 % 736-9) MONO % (test code = 9.0 % 5905-5) EOS % (test code = 1.7 % 713-8) BASO % (test code = 0.5 % 706-2) GRAN MAT x10^3(ANC) 4.60 10*3/uL 1.88-7.09 (test code = 0186708341) IMM GRAN x10^3 (test 0.03 10*3/uL 0.00-0.06 code = 7736973935) LYMPH x10^3 (test code 1.13 10*3/uL 1.32-3.29 L = 731-0) MONO x10^3 (test code 0.58 10*3/uL 0.33-0.92 = 742-7) EOS x10^3 (test code = 0.11 10*3/uL 0.03-0.39 711-2) BASO x10^3 (test code 0.03 10*3/uL 0.01-0.07 = 704-7) Lab Interpretation Abnormal (test code = 29861-8) [facility] [id number] 06:01:07 Test Item Value Reference Range Interpretation Comments Blood Culture-Aerobic No organisms No growth Previo us (test code = 47811-3) isolated prelim inary verified result was Culture [...] Culture-Anaerobic isolated preliminar y (test code = 82665-2) verifi ed result was Culture In Progress [...] CDT Lab Interpretation Normal (test code = 63062-5) [facility] CULTURE [id number] 06:01:07 Test Item Value Reference Range Interpretation Comments Blood Culture-Aerobic No organisms No growth Previo us (test code = 31934-8) isolated prelim inary verified result was Culture [...] Culture-Anaerobic isolated preliminar y (test code = 83821-1) verifi ed result was Culture In Progress [...] CDT Lab Interpretation Normal (test code = 97848-7) [facility] CULTURE [id number] 06:01:07 Test Item Value Reference Range Interpretation Comments Blood Culture-Aerobic No organisms No growth Previo us (test code = 59164-5) isolated prelim inary verified result was Culture [...] Culture-Anaerobic isolated preliminar y (test code = 81560-5) verifi ed result was Culture In Progress [...] CDT Lab Interpretation Normal (test code = 27374-8) [facility] [id number] 10:49:10 Test Item Value Reference Range Interpretation Comments NT-proBNP (test code 2660 pg/mL See_Comment H [Autom ated = 0960227139) message] The system which generated this result transmitted reference range : <=125. The reference range was not used to interpret this result as normal/abnormal . KYLE (test code = KYLE) Biotin has been reported to cause a negative bias, interpret results relative to patient's use of biotin. Lab Interpretation Abnormal (test code = 32949-1) [facility] [id number] 10:49:10 Test Item Value Reference Range Interpretation Comments NT-proBNP (test code 2660 pg/mL See_Comment H [Autom ated = 2352753478) message] The system which generated this result transmitted reference range : <=125. The reference range was not used to interpret this result as normal/abnormal . KYLE (test code = KYLE) Biotin has been reported to cause a negative bias, interpret results relative to patient's use of biotin. Lab Interpretation Abnormal (test code = 60865-6) [facility] [place] [facility] (NA, K, CL, CO2, GLUCOSE, BUN, CREATININE, CA)2022-02-15 10:44:07 Test Item Value Reference Range Interpretation Comments NA (test code = 134 mmol/L 135-145 L 0161319438) K (test code = 3.2 mmol/L 3.5-5 L 8427253838) CL (test code = 98 mmol/L 98-108 9336174521) CO2 TOTAL (test code = 27 mmol/L 23-31 6775105049) AGAP (test code = 2-16 8144817993) BUN (test code = 19 mg/dL 7-23 3266677031) GLUCOSE (test code = 102 mg/dL 70-110 4183663659) CREATININE (test code = 0.95 mg/dL 0.5-1.04 2276926771) CALCIUM (test code = 8.5 mg/dL 8.6-10.6 L 7361510946) eGFR (test code = mL/min/1.73m2 6710970031) KYLE (test code = KYLE) Association of [...] tests). Lab Interpretation Abnormal (test code = 84442-1) [facility]2022-[facility]-26 10:44:07 Test Item Value Reference Range Interpretation Comments MAGNESIUM (test code = 9785163920) 1.8 mg/dL 1.7-2.4 Lab Interpretation (test code = Normal 22887-4) [facility]07 Test Item Value Reference Range Interpretation Comments MAGNESIUM (test code = 2029754811) 1.8 mg/dL 1.7-2.4 Lab Interpretation (test code = Normal 45015-5) [facility] METABOLIC PANEL (NA, K, CL, CO2, GLUCOSE, BUN, CREATININE, CA)2022-02-15 10:44:07 Test Item Value Reference Range Interpretation Comments NA (test code = 134 mmol/L 135-145 L 2418258612) K (test code = 3.2 mmol/L 3.5-5.0 L 0108009336) CL (test code = 98 mmol/L 98-108 2984600511) CO2 TOTAL (test code = 27 mmol/L 23-31 7839498942) AGAP (test code = 2-16 9061837304) BUN (test code = 19 mg/dL 7-23 1543351224) GLUCOSE (test code = 102 mg/dL 70-110 5034338066) CREATININE (test code = 0.95 mg/dL 0.50-1.04 8237217785) CALCIUM (test code = 8.5 mg/dL 8.6-10.6 L 6780321858) eGFR (test code = mL/min/1.73m2 1233298566) KYLE (test code = KYLE) Association of [...] tests). Lab Interpretation Abnormal (test code = 73845-0) [facility] WITH [id number] 10:12:06 Test Item Value Reference Range Interpretation [...] RDW-SD (test code = 47.8 fL 39-49.9 56037-5) RDW-CV (test code = 15.2 % 12-15.5 788-0) PLT (test code = See_Comment L [Automated 777-3) message] The sy stem which generated this result transmitted reference range : 166 - 358 10*3/ ?L. The reference r abbey was not used to interpret this result as normal/abnormal . MPV (test code = 8.9 fL 9.5-12.9 L 48462-7) NRBC/100 WBC (test See_Comment [Automat ed code = 5868490503) message] The system which generated this result transmitted reference range : 0.0 - 10.0 /100 WBCs. The refer ence range was not u sed to interpret th is result as normal/abnormal . NRBC x10^3 (test code See_Comment [Auto mated = 8315699804) message] The s ystem which generated this result transmitted reference range : 10*3/?L. The reference range was not used to interpret this result as normal/abnormal . GRAN MAT (NEUT) % 65.9 % (test code = 770-8) IMM GRAN % (test code 0.30 % = 7600502799) LYMPH % (test code = 21.0 % 736-9) MONO % (test code = 10.1 % 5905-5) EOS % (test code = 2.4 % 713-8) BASO % (test code = 0.3 % 706-2) GRAN MAT x10^3(ANC) 2.49 10*3/uL 1.88-7.09 (test code = 0420565790) IMM GRAN x10^3 (test 0-0.06 code = 5813033519) LYMPH x10^3 (test code 0.79 10*3/uL 1.32-3.29 L = 731-0) MONO x10^3 (test code 0.38 10*3/uL 0.33-0.92 = 742-7) EOS x10^3 (test code = 0.09 10*3/uL 0.03-0.39 711-2) BASO x10^3 (test code 0.01-0.07 = 704-7) Lab Interpretation Abnormal (test code = 29801-9) [facility] WITH [id number] 10:12:06 Test Item Value Reference Range Interpretation [...] RDW-SD (test code = 47.8 fL 39.0-49.9 31072-5) RDW-CV (test code = 15.2 % 12.0-15.5 788-0) PLT (test code = See_Comment L [Automated 777-3) message] The sy stem which generated this result transmitted reference range : 166 - 358 10*3/ ?L. The reference r abbey was not used to interpret this result as normal/abnormal . MPV (test code = 8.9 fL 9.5-12.9 L 77605-9) NRBC/100 WBC (test See_Comment [Automat ed code = 6883986720) message] The system which generated this result transmitted reference range : 0.0 - 10.0 /100 WBCs. The refer ence range was not u sed to interpret th is result as normal/abnormal . NRBC x10^3 (test code See_Comment [Auto mated = 1390930008) message] The s ystem which generated this result transmitted reference range : 10*3/?L. The reference range was not used to interpret this result as normal/abnormal . GRAN MAT (NEUT) % 65.9 % (test code = 770-8) IMM GRAN % (test code 0.30 % = 6737695494) LYMPH % (test code = 21.0 % 736-9) MONO % (test code = 10.1 % 5905-5) EOS % (test code = 2.4 % 713-8) BASO % (test code = 0.3 % 706-2) GRAN MAT x10^3(ANC) 2.49 10*3/uL 1.88-7.09 (test code = 3186183423) IMM GRAN x10^3 (test 0.00-0.06 code = 1164926876) LYMPH x10^3 (test code 0.79 10*3/uL 1.32-3.29 L = 731-0) MONO x10^3 (test code 0.38 10*3/uL 0.33-0.92 = 742-7) EOS x10^3 (test code = 0.09 10*3/uL 0.03-0.39 711-2) BASO x10^3 (test code 0.01-0.07 = 704-7) Lab Interpretation Abnormal (test code = 98025-7) [facility] WITH [id number] 11:18:28 Test Item Value Reference Range Interpretation [...] RDW-SD (test code = 49.5 fL 39-49.9 97258-0) RDW-CV (test code = 15.5 % 12-15.5 788-0) PLT (test code = See_Comment L [Automated 777-3) message] The sy stem which generated this result transmitted reference range : 166 - 358 10*3/ ?L. The reference r abbey was not used to interpret this result as normal/abnormal . MPV (test code = 11.4 fL 9.5-12.9 31995-6) IPF % (test code = 8.7 % 1.3-7.7 H Platelet count 4189788928) measured by fluorescence method. NRBC/100 WBC (test See_Comment [Automat ed code = 6756896283) message] The system which generated this result transmitted reference range : 0.0 - 10.0 /100 WBCs. The refer ence range was not u sed to interpret th is result as normal/abnormal . NRBC x10^3 (test code See_Comment [Auto mated = 2823651047) message] The s ystem which generated this result transmitted reference range : 10*3/?L. The reference range was not used to interpret this result as normal/abnormal . GRAN MAT (NEUT) % 62.0 % (test code = 770-8) IMM GRAN % (test code 0.80 % = 3725649198) LYMPH % (test code = 22.2 % 736-9) MONO % (test code = 9.6 % 5905-5) EOS % (test code = 5.1 % 713-8) BASO % (test code = 0.3 % 706-2) GRAN MAT x10^3(ANC) 2.21 10*3/uL 1.88-7.09 (test code = 7809550132) IMM GRAN x10^3 (test 0.03 10*3/uL 0-0.06 code = 9023767509) LYMPH x10^3 (test code 0.79 10*3/uL 1.32-3.29 L = 731-0) MONO x10^3 (test code 0.34 10*3/uL 0.33-0.92 = 742-7) EOS x10^3 (test code = 0.18 10*3/uL 0.03-0.39 711-2) BASO x10^3 (test code 0.01-0.07 = 704-7) POLYCHROMASIA (test 2+ See_Comment [Automa arpit code = 08846-2) message] The system which generated this result [...] . Lab Interpretation Abnormal (test code = 73000-6) [facility] METABOLIC PANEL (NA, K, CL, CO2, GLUCOSE, BUN, CREATININE, CA)2022-02-13 10:39:07 Test Item Value Reference Range Interpretation Comments NA (test code = 136 mmol/L 135-145 7690157228) K (test code = 4.1 mmol/L 3.5-5 7111293690) CL (test code = 102 mmol/L 98-108 6052654438) CO2 TOTAL (test code = 27 mmol/L 23-31 8839659918) AGAP (test code = 2-16 1563906966) BUN (test code = 22 mg/dL 7-23 4513197781) GLUCOSE (test code = 94 mg/dL 70-110 2563879622) CREATININE (test code = 0.94 mg/dL 0.5-1.04 5960907998) CALCIUM (test code = 8.1 mg/dL 8.6-10.6 L 2707905585) eGFR (test code = mL/min/1.73m2 9502331325) KYLE (test code = KYLE) Association of [...] tests). Lab Interpretation Abnormal (test code = 22059-8) [facility]2022-02-12 01:50:10 Test Item Value Reference Range Interpretation Comments Height (test code = in 7722822174) Weight (test code = lbs 2566870623) Systolic BP (test code mmHg = 8074483152) Diastolic BP (test code mmHg = 2395688006) Heart Rate (test code = bpm 7520648369) BSA (test code = 1.85 m2 2460714005) IVS (test code = 1.22 cm 0925667497) Interventricular Septum 1.22 cm Diastolic Thickness by 2D (test code = 0205980) LVIDD (test code = 5.00 cm 3283297937) Left Ventricular End 117.9 mL Diastolic Volume by Teichholz Method (test code = 5382161) LVPWD (test code = 1.22 cm 5793033413) PW (test code = 1.22 cm 0.6-1.9 0961105086) EF(Teich) (test code = 74.60 % 5666434080) LVIDS (test code = 2.80 cm 5007939079) Left Ventricular End 29.9 mL Systolic Volume by Teichholz Method (test code = 4615454) FS (test code = 44 % 1752913306) EF - 2D (test code = 74.60 % 95877676) LVOT diameter (test 2.16 cm code = 6684608712) LVOT area (test code = 3.70 cm2 2702710636) Ao root diam (test code 3.40 cm = 8768584337) Aortic root (test code 3.4 cm = 2590057536) Ao root annulus (test 3.4 cm code = 4992038899) LA size (test code = 3.4 cm 1106270948) TR Peak Spencer (test code 330.0 cm/s = 3830018495) Triscuspid Valve mmHg Regurgitation Peak Gradient (test code = 7367053568) PV REGURGITATION PEAK mmHg GRADIENT (test code = 1114716647) PI dec slope (test code 137.20 cm/s2 = 2379607243) LAV(MOD-sp4) (test code 102.90 mL = 1567072477) MV Peak E Spencer (test 84.1 cm/s code = 5361699974) MV Peak A Spencer (test 40.1 cm/s code = 7024229008) E/A ratio (test code = ratio 3453697024) MV valve area p 1/2 3.70 cm2 method (test code = 3128705595) MV dec slope (test code 413.00 cm/s2 = 7272450250) MV P1/2t max spencer (test 83.70 cm/s code = 2288406570) MV Prop V (test code = 41.80 cm/s 9623718439) Tapse (test code = 1.83 cm 9410993476) LVOT stroke volume 96.90 cm3 (test code = 2079837904) LVOT peak spencer (test 125.5 cm/s code = 1304870449) LVOT mn grad (test code mmHg = 9120742167) AV LVOT peak gradient mmHg (test code = 4786561318) LVOT peak VTI (test 26.4 cm code = 9561415111) LV V1 mean (test code = 78.10 cm/s 1195284897) Aortic valve mean 103.7 cm/s velocity (test code = 7008034981) Ao peak spencer (test code 165.6 cm/s = 2102019099) Ao VTI (test code = 37.2 cm 1895142902) AV area by cont VTI 2.6 cm2 (test code = 7964538650) AV area peak spencer (test 2.8 cm2 code = 1182798085) Ao max PG (test code = 11.00 mm[Hg] 9003171643) AV peak gradient (test mmHg code = 8095412774) AV valve area (test 2.60 cm2 code = 5919419339) AV mean gradient (test mmHg code = 1801048570) LA Volume Index (BP) 55.2 mL/m2 (test code = 6026631108) LA volume (BP) (test 102.1 mL code = 3289578973) LAV(MOD-sp2) (test code 86.10 mL = 5215011911) A2C EF (test code = 61.20 % 4028659724) EF(sp2-el) (test code = 61.60 % 5358554772) SV(MOD-sp2) (test code 47.10 mL = 5024751504) LV Diastolic Volume 70.7 mL (BP) (test code = 5581179236) A4C EF (test code = 53.00 % 0709272771) EF(MOD-bp) (test code = 56.70 % 5664566838) EF(sp4-el) (test code = 53.90 % 7815027127) LV Systolic Volume (BP) 30.6 mL (test code = 7972994269) SV(MOD-bp) (test code = 40.10 mL 8428464727) SV(MOD-sp4) (test code 32.40 mL = 2753921002) SV(sp4-el) (test code = 33.10 mL 4500998809) EF (test code = 9079320151) Left Ventricular Stroke 40.1 mL Volume by 2-D Biplane-MOD (test code = 1588319) LV Diastolic Volume 38.2 mL/m2 Index (BP) (test code = 4170789223) LV Systolic Volume 16.5 mL/m2 Index (BP) (test code = 5572536596) Radiology Study observation (narrative) (test code = 26626-5) KYLE (test code = KYLE) ?Left?Ventricle: Left [...] ventricular wall motion is normal. [facility] [id number] 05:45:01 Test Item Value Reference Interpretation Comments Range TROPONIN I (test See_Comment [Automated code = 2968365541) message] The system which generated this result [...] biotin. Lab Interpretation Normal (test code = 04284-1) [facility] [id number] 05:41:40 Test Item Value Reference Range Interpretation Comments NT-proBNP (test code 4250 pg/mL See_Comment H [Autom ated = 9722657113) message] The system which generated this result transmitted reference range : <=125. The reference range was not used to interpret this result as normal/abnormal . KYLE (test code = KYLE) Biotin has been reported to cause a negative bias, interpret results relative to patient's use of biotin. Lab Interpretation Abnormal (test code = 67287-2) [facility] THRMPLAS [id number] 05:35:21 Test Item Value Reference Range Interpretation [...] seconds. Lab Interpretation Normal (test code = 40620-9) [facility] TH[facility] [id number] 05:35:21 Test Item Value Reference Range Interpretation [...] seconds. Lab Interpretation Normal (test code = 53043-1) [facility]entonPROTHROMBIN TIME / [id number] 05:33:21 Test Item Value Reference Range Interpretation Comments PROTIME PATIENT (test See_Comment [Auto mated message] code = 5964-2) The system [facility] [facility] generated this result transmitted ref erence range: 12.0 - 1 4.7 Seconds. The re ference range was not u sed to interpret this result as normal/abnor mal. INR (test code = 6301-6) Nor mal INR <1.1; Warfarin Therap eutic range 2.0 to 3. 0 or 2.5 to 3.5, dep ending upon the indica tions. Lab Interpretation (test Normal code = 61330-0) [facility]OL[facility] ([id number])2022-02-11 05:33:21 Test Item Value Reference Range Interpretation Comments NA (test code = 137 mmol/L 135-145 [id number]) K (test code = 4.3 mmol/L 3.5-5 0180720717) CL (test code = 103 mmol/L 98-108 2391134479) CO2 TOTAL (test code = 25 mmol/L 23-31 5759434215) AGAP (test code = 2-16 0705787384) BUN (test code = 19 mg/dL 7-23 8640376425) GLUCOSE (test code = 120 mg/dL 70-110 H 5230622979) CREATININE (test code = 1.15 mg/dL 0.5-1.04 H 5097435751) TOTAL BILI (test code = 0.9 mg/dL 0.1-1.1 2709247912) CALCIUM (test code = 8.9 mg/dL 8.6-10.6 9313353535) T PROTEIN (test code = 6.6 g/dL 6.3-8.2 8075941254) ALBUMIN (test code = 4.0 g/dL 3.5-5 3019649569) ALK PHOS (test code = 73 U/L 34-122 3527361202) ALTv (test code = 18 U/L 5-35 1742-6) AST(SGOT) (test code = 31 U/L 13-40 0739307901) eGFR (test code = mL/min/1.73m2 9015857295) KYLE (test code = KYLE) Association of [...] tests). Lab Interpretation Abnormal (test code = 70286-7) [facility]. METABOLIC PANEL (43784)2022-02-11 05:33:21 Test Item Value Reference Range Interpretation Comments NA (test code = 137 mmol/L 135-145 1759970597) K (test code = 4.3 mmol/L 3.5-5.0 9751712289) CL (test code = 103 mmol/L 98-108 2147290216) CO2 TOTAL (test code = 25 mmol/L 23-31 4075125453) AGAP (test code = 2-16 6985656559) BUN (test code = 19 mg/dL 7-23 9212520655) GLUCOSE (test code = 120 mg/dL 70-110 H 2912676172) CREATININE (test code = 1.15 mg/dL 0.50-1.04 H 0358087511) TOTAL BILI (test code = 0.9 mg/dL 0.1-1.2 1663179719) CALCIUM (test code = 8.9 mg/dL 8.6-10.6 0583894775) T PROTEIN (test code = 6.6 g/dL 6.3-8.2 4202760832) ALBUMIN (test code = 4.0 g/dL 3.5-5.0 2283205928) ALK PHOS (test code = 73 U/L 34-122 9059723053) ALTv (test code = 18 U/L 5-35 2-6) AST(SGOT) (test code = 31 U/L 13-40 2670249611) eGFR (test code = mL/min/1.73m2 6125889100) KYLE (test code = KYLE) Association of [...] tests). Lab Interpretation Abnormal (test code = 42805-1) [facility] / TMP2419-02-30 05:33:21 Test Item Value Reference Range Interpretation [...] tions. Lab Interpretation (test Normal code = 44914-9) [facility] WITH BMDA6280-31-03 05:14:37 Test Item Value Reference Range Interpretation [...] RDW-SD (test code = 47.9 fL 39-49.9 08009-4) RDW-CV (test code = 14.9 % 12-15.5 788-0) PLT (test code = See_Comment L [Automated 777-3) message] The sy stem which generated this result transmitted reference range : 166 - 358 10*3/ ?L. The reference r abbey was not used to interpret this result as normal/abnormal . MPV (test code = 9.1 fL 9.5-12.9 L 72775-7) NRBC/100 WBC (test See_Comment [Automat ed code = 3223598291) message] The system which generated this result transmitted reference range : 0.0 - 10.0 /100 WBCs. The refer ence range was not u sed to interpret th is result as normal/abnormal . NRBC x10^3 (test code See_Comment [Auto mated = 0092702982) message] The s ystem which generated this result transmitted reference range : 10*3/?L. The reference range was not used to interpret this result as normal/abnormal . GRAN MAT (NEUT) % 78.5 % (test code = 770-8) IMM GRAN % (test code 0.20 % = 7526935567) LYMPH % (test code = 11.6 % 736-9) MONO % (test code = 8.4 % 5905-5) EOS % (test code = 1.1 % 713-8) BASO % (test code = 0.2 % 706-2) GRAN MAT x10^3(ANC) 3.45 10*3/uL 1.88-7.09 (test code = 8806458811) IMM GRAN x10^3 (test 0-0.06 code = 8219288656) LYMPH x10^3 (test code 0.51 10*3/uL 1.32-3.29 L = 731-0) MONO x10^3 (test code 0.37 10*3/uL 0.33-0.92 = 742-7) EOS x10^3 (test code = 0.05 10*3/uL 0.03-0.39 711-2) BASO x10^3 (test code 0.01-0.07 = 704-7) Lab Interpretation Abnormal (test code = 39790-6) [facility] Coronavirus 2019 Qvrorly7403-10-93 18:08:00 Test Item Value Reference Range Interpretation [...] det ection of nucleic acids f rom xxgSNEN-VeQ-9 v irus and diagnosis of SA RS-CoV-2 virusinfection. It is an Emergency Use Authorization ( EUA) testauthorized by the U.S. FDA. BASIC METABOLIC OBPIJ8307-92-63 09:37:00 Test Item Value Reference Range Interpretation [...] = 9.0 mg/dL 8.0-10.5 N CA) PROTHROMBIN EZZA1962-11-49 09:32:00 Test Item Value Reference Range Interpretation [...] (to prevent recurrent infar ct). 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[facility] - XR CHEST 1 V2589-73-72 00:00:00 [facility] 1955 Sex: F FAX: Carmenza Kelly DO [phone] [place]: St: ADM FAX: Mike Scales MD [phone] FAX: Bahman Chopra [phone] Name: LIO WATTS [facility] [place] : 1955 Age/S: 66/F [address] [place] [address] Unit #: [id number] Loc: [place] [address] Phys: Bahman Chopra [facility] Acct: [id number] Dis Date: Status: ADM IN PHONE #: [phone] Exam Date: 06/17/2021 1320 FAX #: [phone] Reason: WATCHMAN EXAMS: CPT CODE: [id number] XR CHEST 1 V 92219 PROCEDURE INFORMATION: Exam: XR Chest Exam date [...] Chopra Technologist: RT Taylor(R) Trnscrd Date/Time/By: 06/17/2021 (4089) : By: Susanna Orig Print D/T: S: 06/17/2021 (3406) PAGE 1 Signed ReportCOVID 19 Asymptomatic IH QJ7098-51-49 12:29:00 Test Item Value Reference Range Interpretation [...] high or waivedcomplexit y tests. BASIC METABOLIC PWERG8193-93-59 11:37:00 Test Item Value Reference Range Interpretation [...] code = 9.0 mg/dL 8.0-10.5 N CA) ARFRLWZYNR4109-52-24 11:37:00 Test Item Value Reference Range Interpretation Comments PREALBUMIN (test code = PREALB) 24.3 mg/dL 16.0-40.0 N PROTHROMBIN UUDF4596-07-89 11:03:00 Test Item Value Reference Range Interpretation [...] (to prevent recurrent infar ct). CBC W/AUTO FIQI4928-38-49 10:59:00 Test Item Value Reference Range Interpretation [...] 0.0-0.1 N NRBC#) - XR CHEST 2 K5146-46-58 00:00:00 [facility] 1955 Sex: F FAX: Charlie RahmanCarmenza Francisco H [phone] [place]: St: PRE FAX: Mike Scales MD [phone] Name: MACLIO [facility] : 1955 Age/S: 66/F [address] [place] [address] Unit #: [id number] Loc: [place] [address] Phys: Mike Lund MD Acct: [id number] Dis Date: Status: PRE SDC PHONE #: [phone] Exam Date: 06/16/2021 1120 FAX #: [phone] Reason: PREOP EXAMS: CPT CODE: [id number] XR CHEST 2 V 21797 PROCEDURE INFORMATION: Exam: XR Chest Exam date [...] Technologist: Danielle Nix RT(R) Trnscrd Date/Time/By: 06/16/2021 (0092) : By: [email or web address] Orig Print D/T: S: 06/16/2021 (8352) PAGE 1 Signed ReportGastrointestinal tcyrp7226-12-64 04:35:05 Test Item Value Reference Interpretation Comments [...] Rotavirus PCR (test Not Detected code = 1922783) Salmonella PCR (test Not Detected code = [...] 7124) [facility] blkjhqk3548-06-89 19:30:47 Test Item Value Reference Range Interpretation Comments Case number (test [id number] code = 1006211) Surgical pathology See link below for PDF report (test code = Lab Report 2255) Result status (test This is Supplemental code = 1378467) Report for [id number] [facility]2021-04-09 16:31:00 Test Item Value Reference Range Interpretation Comments POC Activated Clotting Time (test code 153 s = POC Activated Clotting Time) [facility]UwnbqqnATIAAEIKBV2470-24-02 16:31:00 Test Item Value Reference Range Interpretation Comments POC Activated Clotting Time (test code 153 s = POC Activated Clotting Time) [facility] HospitalOvmkahxMLBOEQBOZN4228-49-88 16:31:00 Test Item Value Reference Range Interpretation Comments POC Activated Clotting Time (test code 153 s = POC Activated Clotting Time) [facility] HospitalJxefbmeYHORTMDXVZ4725-50-67 16:31:00 Test Item Value Reference Range Interpretation Comments POC Activated Clotting Time (test code 153 s = POC Activated Clotting Time) [facility] HospitalMsclzljDEQORUQRXM0831-95-70 16:31:00 Test Item Value Reference Range Interpretation Comments POC Activated Clotting Time (test code 153 s = POC Activated Clotting Time) [facility] HospitalVxsxigoLHWCEKKVJY3914-52-77 16:31:00 Test Item Value Reference Range Interpretation Comments POC Activated Clotting Time (test code 153 s = POC Activated Clotting Time) [facility] HospitalCrksygpBEGSIBNYNB9351-25-40 16:31:00 Test Item Value Reference Range Interpretation Comments POC Activated Clotting Time (test code 153 s = POC Activated Clotting Time) [place] 111671-04-09 14:37:00 Test Item Value Reference Range Interpretation Comments POC Activated Clotting Time (test code 454 s = POC Activated Clotting Time) [facility] HospitalEajygtaBTSLNILEZY5019-67-25 14:37:00 Test Item Value Reference Range Interpretation Comments POC Activated Clotting Time (test code 454 s = POC Activated Clotting Time) [facility] HospitalEbirqiaRIBWZJNSLQ4837-12-03 14:37:00 Test Item Value Reference Range Interpretation Comments POC Activated Clotting Time (test code 454 s = POC Activated Clotting Time) [facility] HospitalXvpqpfeBXRVFJBRVE1953-91-51 14:37:00 Test Item Value Reference Range Interpretation Comments POC Activated Clotting Time (test code 454 s = POC Activated Clotting Time) [facility] HospitalVehteubYRNKABHWUZ7741-09-47 14:37:00 Test Item Value Reference Range Interpretation Comments POC Activated Clotting Time (test code 454 s = POC Activated Clotting Time) [facility] HospitalOsbsirlRYAOSLWDIS2545-41-68 14:37:00 Test Item Value Reference Range Interpretation Comments POC Activated Clotting Time (test code 454 s = POC Activated Clotting Time) [facility] HospitalDznetmrWIPGOVHKEZ0344-68-42 14:37:00 Test Item Value Reference Range Interpretation Comments POC Activated Clotting Time (test code 454 s = POC Activated Clotting Time) [facility] HospitalZuebmawTPAEIGVBVV0740-71-58 14:13:00 Test Item Value Reference Range Interpretation Comments POC Activated Clotting Time (test code 354 s = POC Activated Clotting Time) [facility] HospitalPsworvnVRNFETTUEM8454-52-58 14:13:00 Test Item Value Reference Range Interpretation Comments POC Activated Clotting Time (test code 354 s = POC Activated Clotting Time) [facility] HospitalKirqiugVANJTNZKCU5301-24-35 14:13:00 Test Item Value Reference Range Interpretation Comments POC Activated Clotting Time (test code 354 s = POC Activated Clotting Time) [facility] HospitalUzdzaebMOEPTVNDKF9242-24-60 14:13:00 Test Item Value Reference Range Interpretation Comments POC Activated Clotting Time (test code 354 s = POC Activated Clotting Time) [facility] HospitalSjoqhpcGFZBASSPPP7499-38-65 14:13:00 Test Item Value Reference Range Interpretation Comments POC Activated Clotting Time (test code 354 s = POC Activated Clotting Time) [facility] HospitalDoqsqowJUJPXEPAUU4540-03-91 14:13:00 Test Item Value Reference Range Interpretation Comments POC Activated Clotting Time (test code 354 s = POC Activated Clotting Time) [facility] HospitalAihftvpJMQVYAPRLW4995-78-41 14:13:00 Test Item Value Reference Range Interpretation Comments POC Activated Clotting Time (test code 354 s = POC Activated Clotting Time) [facility] CHRHDBH5625-42-28 10:37:00Negative (08/29/20 5:37 AM) [facility] JKBJD5888-12-14 10:37:01167Phkjnzuh HermannCHEM PANEL 2020-08-29 10:37:0028[facility]annCHE[facility] KVHDR1733-09-58 10:37:001.01[facility]annCHE[facility] DOUHF7929-17-31 10:37:83800Wijrglns [facility]annCHE[facility] WDNRR5860-88-85 10:37:003.8[facility]CHE[facility] TNEWU2214-33-88 10:37:84209Yzoorcsh [facility]annCHE[facility] UVAIQ9018-56-04 10:37:0028[facility]annCHE[facility] SIKLI2280-98-89 10:37:009.8 [facility] QZNIU0263-40-03 10:37:0011.8[facility]annCHEM PANEL 2020-08-29 10:37:0059[facility]annCHEM YWLHN3069-17-46 10:37:002.9[facility] KpfclngQRXTADFQND9404-49-20 10:37:006.8[facility] ZhzojffWVHRFQTEOH4776-47-02 10:37:004.47[facility] PdasaszBWYUKPUTER3792-89-24 10:37:0010.6[facility] MTTONOZNHE6165-19-32 10:37:0034.0[facility] NtozuosOFYBFINMTZ5633-17-82 10:37:00 76.1[facility] McodkeuMEEFELWMWM1814-61-48 10:37:00 Test Item Value Reference Range Interpretation Comments MCH (test code = MCH) 23.8 pg 27.0-31.0 [facility] MuwtlmpSRDBPNFFFG6294-21-84 10:37:0031.3[facility]annHEMATOLOGY 2020-08-29 10:37:0018.2[facility] NffbgmdNPCTVMHBSQ6663-51-54 10:37:65638Osacjuxf HursfvzMSBEVMCSDG2479-66-84 10:37:007.5[facility] WshaiymTTUQWVNPOQ4750-14-29 10:37:00 Test Item Value Reference Range Interpretation Comments PT (test code = PT) 12.8 s 12.0-14.7 [facility] IawyxfyFQSUMTHJJT0731-56-63 10:37:00 Test Item Value Reference Range Interpretation Comments INR (test code = INR) 0.97 1 0.85-1.17 [facility] UjigfksNKMTQLBNYQ4993-74-00 10:37:00 Test Item Value Reference Range Interpretation Comments PTT (test code = PTT) 25.0 s 22.9-35.8 [facility] TkjgoniDNWNWQIAUE4285-67-75 10:37:0070.5[facility]annHEMATOLOGY 2020-08-29 10:37:0018.8[facility] AvwybrqULFHVVGETR7143-56-86 10:37:009.5[facility] XdexchqFOHIDWLDJR6074-34-31 10:37:000.9[facility] OayshduCMTAWXDPTU0574-85-74 10:37:000.3[facility] BiudgxwZJIMYTJNAR5835-29-37 10:37:004.8[facility] TXYODWIZHE2186-77-85 10:37:001.3[facility] CrdcvczXJWTZKCVMD7859-77-68 10:37:000.6 [facility] MfsemosVTLKERMQUS0310-03-11 10:37:000.1[facility]annHEMATOLOGY 2020-08-29 10:37:001+ *ABN*(08/29/20 5:37 AM)[facility] SbsioafGCQTLSBAUB6766-87-47 10:37:00Not Detected (08/29/20 5:37 AM)[facility]annBLOOD BANK RESULTS 2020-08-29 10:37:00Negative (08/29/20 5:37 AM)[facility]annCHEM PVELU6704-71-75 10:37:60542Evwjhljr HermannCHEM RNHVD4093-78-73 10:37:0028[facility]annCHEM RYLXR8957-94-74 10:37:001.01[facility]annCHEM WCAAP5780-40-37 10:37:19593 [facility] KFQUQ7184-37-10 10:37:003.8[facility]annCHEM PANEL 2020-08-29 10:37:22668Jlivnwkb [facility]annCHE[facility] SVKCN2460-53-84 10:37:0028[facility]annCHE[facility] MZIEC7532-10-86 10:37:009.8[facility]annCHE[facility] SBEJW6314-14-37 10:37:0011.8[facility]annCHE[facility] YTGSR4816-34-30 10:37:0059[facility]annCHEM GVLJO0714-66-78 10:37:002.9[facility] QirltakNIYPWRCFEB7012-21-87 10:37:006.8 [facility] SdpugjgOKPFAZDJJG1191-68-01 10:37:004.47[facility]annHEMATOLOGY 2020-08-29 10:37:0010.6[facility] ZalhyhtLURPJVVEHS8860-40-84 10:37:0034.0[facility] GiietwkGADGDZFRZQ5653-46-65 10:37:0076.1[facility] QheihrkPWXHVXRXPI1755-27-33 10:37:00 Test Item Value Reference Range Interpretation Comments MCH (test code = MCH) 23.8 pg 27.0-31.0 [facility] DwbvlogSQSDGJKOKF6216-02-98 10:37:0031.3[facility]annHEMATOLOGY 2020-08-29 10:37:0018.2[facility] OqukuuiZGDQSLWZCM0907-79-16 10:37:70573Yehkorhf UsqnyvuQTXWREQHVM8962-87-63 10:37:007.5[facility] XseczkaHPZHUQUTLB3085-87-24 10:37:00 Test Item Value Reference Range Interpretation Comments PT (test code = PT) 12.8 s 12.0-14.7 [facility] FueppxgCOKIIKOGKY4407-04-90 10:37:00 Test Item Value Reference Range Interpretation Comments INR (test code = INR) 0.97 1 0.85-1.17 [facility] CbzucnqUGABFQUHPY7154-56-87 10:37:00 Test Item Value Reference Range Interpretation Comments PTT (test code = PTT) 25.0 s 22.9-35.8 [facility] HmzbucuJDUOWBRGCF2453-01-13 10:37:0070.5[facility]annHEMATOLOGY 2020-08-29 10:37:0018.8[facility] DiqweuiSUZCXIZAVE6242-27-69 10:37:009.5[facility] QpoyygyGJYKLKQPLW6174-52-38 10:37:000.9[facility] HjsxvkjRFVFUISRBY1186-98-57 10:37:000.3[facility] KcjqxkuIYVHEZOYBY3538-09-38 10:37:004.8[facility] EGLNJNCWRI1481-22-95 10:37:001.3[facility] WoozvwsJCDNYWVUMV6374-62-54 10:37:000.6 [facility] JabqwwlEIZRMHECZX1535-67-76 10:37:000.1[facility]annHEMATOLOGY 2020-08-29 10:37:001+ *ABN*(08/29/20 5:37 AM)[facility] IceglopOWEDYCBQSS3001-64-00 10:37:00Not Detected (08/29/20 5:37 AM)[facility]annBLOOD BANK RESULTS 2020-08-29 10:37:00Negative (08/29/20 5:37 AM)[facility]annCHE[facility] YSVFF2288-36-13 10:37:08752Vcxhwvjs HermannCHEM WPOGV8048-38-91 10:37:0028[facility]annCHEM WAKMX3606-29-02 10:37:001.01[facility]annCHEM MJOQM9167-88-57 10:37:17389 [facility]CHE[facility] MXUGX4958-52-35 10:37:003.8[facility]annCHEM PANEL 2020-08-29 10:37:18237Hwrqjkbv [facility]annCHE[facility] OTNRL2185-21-25 10:37:0028[facility]annCHEM DMNDC8696-38-37 10:37:009.8[facility]annCHEM ERCZW2931-25-94 10:37:0011.8[facility]annCHEM ICFEP4053-20-67 10:37:0059[facility]annCHEM OBBYW2689-80-91 10:37:002.9[facility] IltmbkcLKOQRGWZFZ2623-80-60 10:37:006.8 [facility] IhmabzzEUHSGVPNUF2933-66-59 10:37:004.47[facility]annHEMATOLOGY 2020-08-29 10:37:0010.6[facility] NmnyedjFKVSCZDYKQ8355-53-35 10:37:0034.0[facility] KdjekjkXKRJGNGDLE1565-89-54 10:37:0076.1[facility] NupzmodRBMSNDDUEZ3123-62-92 10:37:00 Test Item Value Reference Range Interpretation Comments MCH (test code = MCH) 23.8 pg 27.0-31.0 [facility] JpabmslFXPCKPPYTL6822-88-98 10:37:0031.3[facility]annHEMATOLOGY 2020-08-29 10:37:0018.2[facility] XkrwmgtZICAZEISSQ7335-38-76 10:37:06633Vyvgnxqa IzuhtydFRYQVQPVDT1549-76-87 10:37:007.5[facility] CotbxdzRXXXARHEGU2210-07-95 10:37:00 Test Item Value Reference Range Interpretation Comments PT (test code = PT) 12.8 s 12.0-14.7 [facility] HcmhpwgHHEJZCZDZQ9315-63-05 10:37:00 Test Item Value Reference Range Interpretation Comments INR (test code = INR) 0.97 1 0.85-1.17 [facility] OqxofmfXGLKIVBOZG2424-94-01 10:37:00 Test Item Value Reference Range Interpretation Comments PTT (test code = PTT) 25.0 s 22.9-35.8 [facility] MhardedQBEDUJBFTA8239-78-51 10:37:0070.5[facility]annHEMATOLOGY 2020-08-29 10:37:0018.8[facility] XmegimpTMIZZWZTKK6229-53-00 10:37:009.5[facility] XcdlzmdIITEHRNXRG8940-74-59 10:37:000.9[facility] ZondhqvOQGTSXHARN3221-78-13 10:37:000.3[facility] ZsfehakAFQNRGCYNZ0482-03-69 10:37:004.8[facility] QRIUBQZBNZ0937-30-54 10:37:001.3[facility] YrlrvxhWVPOBPMVQN5217-36-21 10:37:000.6 [facility] UnehiaeEBYSCPZNXJ0871-94-34 10:37:000.1[facility]annHEMATOLOGY 2020-08-29 10:37:001+ *ABN*(08/29/20 5:37 AM)[facility] VjyiulzIQASXKBVKH9594-05-37 10:37:00Not Detected (08/29/20 5:37 AM)[facility]annBLOOD BANK RESULTS 2020-08-29 10:37:00Negative (08/29/20 5:37 AM)[facility]annCHEM BFRAP8060-11-49 10:37:71599Ogkuxkoi HermannCHEM DVREI0520-06-86 10:37:0028[facility]annCHEM PRKSW8200-15-49 10:37:001.01[facility]annCHE[facility] PRFUV2585-24-43 10:37:27729 [facility]CHE[facility] WDMKP1737-60-18 10:37:003.8[facility]annCHEM PANEL 2020-08-29 10:37:16353Lnhodtsg HermannCHEM FHTOX7708-53-16 10:37:0028[facility]annCHEM NHNWQ4673-34-83 10:37:009.8[facility]annCHEM OQKBV3515-69-55 10:37:0011.8[facility] HermannCHEM DHNKZ9504-02-57 10:37:0059[facility]annCHEM ZGLRN8422-18-40 10:37:002.9[facility] XzmzexaGVQZETUAGM1407-71-94 10:37:006.8 [facility] QbyrzweUUOUWQOSPW9700-58-12 10:37:004.47[facility]annHEMATOLOGY 2020-08-29 10:37:0010.6[facility] CijsuofFOPVAVUBNR0578-25-35 10:37:0034.0[facility] LzlzxjsFXNMZRLUIO5524-91-60 10:37:0076.1[facility] XodstuhOKQZXTERMM5775-56-46 10:37:00 Test Item Value Reference Range Interpretation Comments MCH (test code = MCH) 23.8 pg 27.0-31.0 [facility] YyghytzYOZTRIWWYU8825-03-10 10:37:0031.3[facility]annHEMATOLOGY 2020-08-29 10:37:0018.2[facility] NefuvsjPGIZGPTVLV2386-70-60 10:37:74993Jpvwczjt QhxqqfmXTJRIZVHBT8623-20-60 10:37:007.5[facility] FpvtwewJDFFSPNDMB7836-48-05 10:37:00 Test Item Value Reference Range Interpretation Comments PT (test code = PT) 12.8 s 12.0-14.7 [facility] OjzhewmEFEVPLVICT5022-92-68 10:37:00 Test Item Value Reference Range Interpretation Comments INR (test code = INR) 0.97 1 0.85-1.17 [facility] WtuohjjLGPIMGZNQX3624-92-89 10:37:00 Test Item Value Reference Range Interpretation Comments PTT (test code = PTT) 25.0 s 22.9-35.8 [facility] TusxujhDUCYIGKSGP0007-80-57 10:37:0070.5[facility]annHEMATOLOGY 2020-08-29 10:37:0018.8[facility] RlomjnbCNIPMRWZSK7320-76-76 10:37:009.5[facility] NidpkdwGKTWXGGDUH0259-82-33 10:37:000.9[facility] CcdoqomRULAJAFXAW3540-27-34 10:37:000.3[facility] XcryteuKFTFQROBOM8076-62-50 10:37:004.8[facility] VTPRLYJNKY2779-84-70 10:37:001.3[facility] HmrtbseQZIWBQAEQA6282-44-24 10:37:000.6 [facility] UrcoagsTRWLPGLGJL3030-02-16 10:37:000.1[facility]annHEMATOLOGY 2020-08-29 10:37:001+ *ABN*(08/29/20 5:37 AM)[facility] TmutwvwEESMWZDTHT7764-96-07 10:37:00Not Detected (08/29/20 5:37 AM)[facility]annBLOOD BANK RESULTS 2020-08-29 10:37:00Negative (08/29/20 5:37 AM)[facility]annCHEM DCNRY4160-26-04 10:37:81923Jossvlcf HermannCHEM EXCBM8408-54-53 10:37:0028[facility]annCHEM GKBPB9446-30-02 10:37:001.01[facility]annCHEM BONEK6265-47-23 10:37:14563 [facility]CHE[facility] AQSLP1232-41-87 10:37:003.8[facility]annCHEM PANEL 2020-08-29 10:37:30355Tsknxmzl HermannCHEM WPKCH8490-31-96 10:37:0028[facility]annCHEM VHNJJ8941-93-27 10:37:009.8[facility] HermannCHEM VUIPN3283-16-40 10:37:0011.8[facility]annCHEM JQJGZ9538-57-68 10:37:0059[facility]annCHEM AYYGL3889-61-64 10:37:002.9[facility] LqsxfyvGJGUJIXVBH2796-53-37 10:37:006.8 [facility] SnsnfojYENLZAVBKO5842-95-11 10:37:004.47[facility]annHEMATOLOGY 2020-08-29 10:37:0010.6[facility] OmlzhuyZJSAJBSVZK3325-37-52 10:37:0034.0[facility] KhrtkhcMKJDARKKPQ7839-95-40 10:37:0076.1[facility] OzgbbdqIUGCGMUKZN4520-02-96 10:37:00 Test Item Value Reference Range Interpretation Comments MCH (test code = MCH) 23.8 pg 27.0-31.0 [facility] IawakwzCRSRRYYFOT8735-11-90 10:37:0031.3[facility]annHEMATOLOGY 2020-08-29 10:37:0018.2[facility] VpbedolBTLLUMPHUG0235-15-71 10:37:47546Ruiucaoq BmrnuwjALTUNGFCSB2209-06-42 10:37:007.5[facility] JkndbrsVBQYYSPEXQ7164-94-72 10:37:00 Test Item Value Reference Range Interpretation Comments PT (test code = PT) 12.8 s 12.0-14.7 [facility] XgmutunMRFSDTUQWQ7503-88-62 10:37:00 Test Item Value Reference Range Interpretation Comments INR (test code = INR) 0.97 1 0.85-1.17 [facility] FlrhkurXLBOTXWEFS0332-98-91 10:37:00 Test Item Value Reference Range Interpretation Comments PTT (test code = PTT) 25.0 s 22.9-35.8 [facility] ApegijfUHKXQQQBEK2477-17-17 10:37:0070.5[facility] 10:37:0018.8[facility] BkfnxsdEPVEQIUCPG1947-23-26 10:37:009.5[facility] QbvozxtXYWRSDOBXF3325-62-83 10:37:000.9[facility] FfsxmpfDSFIKODJBL0514-78-35 10:37:000.3[facility] KkzbyxxGXGMVFDDOB5557-07-14 10:37:004.8[facility] EFNUNLVALF2401-64-76 10:37:001.3[facility] DvrueqgDIZEKPKQXP7293-61-77 10:37:000.6 [facility] BdookzvRASYAXCSZD6249-05-66 10:37:000.1[facility] 2020-08-29 10:37:001+ *ABN*(08/29/20 5:37 AM)[facility] EwvarufEIQQIPVCKW9107-11-54 10:37:00Not Detected (08/29/20 5:37 AM)[facility] 2020-08-29 10:37:00Negative (08/29/20 5:37 AM)[facility]annCHEM WSMMQ0524-18-22 10:37:76092Vyzjdxpc HermannCHEM PXANI4325-52-58 10:37:0028[facility]annCHE[facility] NRCFU0100-37-29 10:37:001.01[facility]annCHEM OHLFK0323-62-16 10:37:23933 [facility] ZDBNV6923-88-18 10:37:003.8[facility]annCHE[facility] PANEL 2020-08-29 10:37:49405Jalzskcv [facility]annCHEM AAOTM8700-68-95 10:37:0028[facility]annCHE[facility] JLHFB0541-18-81 10:37:009.8[facility]annCHE[facility] KKOMP9984-25-78 10:37:0011.8[facility]annCHEM ARAYZ0516-13-84 10:37:0059[facility]annCHE[facility] TJVRQ7920-57-27 10:37:002.9[facility] HbtlqcjRFSRQWEJXV8355-48-07 10:37:006.8 [facility] UzpdmbgLDLEFOVERL4032-67-27 10:37:004.47[facility] 2020-08-29 10:37:0010.6[facility] KwklcumSVHFATYEZC4789-38-26 10:37:0034.0[facility] XizixiyLDPINPROEF9612-40-06 10:37:0076.1[facility] YdywftwNEJOEMLJAF3737-27-64 10:37:00 Test Item Value Reference Range Interpretation Comments MCH (test code = MCH) 23.8 pg 27.0-31.0 [facility] LfopsvtPERTVHVLTQ7475-38-96 10:37:0031.3[facility] 2020-08-29 10:37:0018.2[facility] StdqzjmMVSVLZNGDI1207-17-62 10:37:34245Zplzuoup WsdyvpaRDBIYHXIFP7209-76-97 10:37:007.5[facility] ZyzsxthCJULJAAHBV3523-04-54 10:37:00 Test Item Value Reference Range Interpretation Comments PT (test code = PT) 12.8 s 12.0-14.7 [facility] LxktyphETMEGRQEWL4716-27-54 10:37:00 Test Item Value Reference Range Interpretation Comments INR (test code = INR) 0.97 1 0.85-1.17 [facility] BvpmqzeRYGXJNBWBO6491-83-29 10:37:00 Test Item Value Reference Range Interpretation Comments PTT (test code = PTT) 25.0 s 22.9-35.8 [facility] YfguypoWELLCVVSOW3103-91-14 10:37:0070.5[facility]HE[facility] 2020-08-29 10:37:0018.8[facility] EdkccglDSQVCRVVAF3992-00-65 10:37:009.5[facility] ChfagzdQTPMXEYZON4260-89-40 10:37:000.9[facility] NbbmkhoCYWPXIZAPL4854-18-28 10:37:000.3[facility] YjeryyvKKVVSWTCGW2897-23-56 10:37:004.8[facility] WYFTWCNTSW8663-42-14 10:37:001.3[facility] PwfkljtCLWMUYCLDO4445-82-04 10:37:000.6 [facility] KcoxeoqDKTPFHACWU6569-73-28 10:37:000.1[facility] 2020-08-29 10:37:001+ *ABN*(08/29/20 5:37 AM)[facility] WxuvqkaDBMSURHQPK0071-79-82 10:37:00Not Detected (08/29/20 5:37 AM)[facility]annBLOOD BANK RESULTS 2020-08-29 10:37:00Negative (08/29/20 5:37 AM)[facility]ann[facility] [id number] 10:37:99844Giyorhls HermannCHEM OJBUR0726-08-95 10:37:0028[facility]annCHEM [id number] 10:37:001.01[facility]annCHEM [id number] 10:37:03197 [facility] CHMQS7287-18-41 10:37:003.8[facility]annCHEM PANEL 2020-08-29 10:37:20369Gkwqghfh HermannCHEM LBYKY1645-72-45 10:37:0028[facility]annCHEM QEMCS1424-56-87 10:37:009.8[facility]annCHEM IHNJC4485-57-19 10:37:0011.8[facility]annCHEM RUMFV4556-38-64 10:37:0059[facility]annCHEM WPFDD0595-24-18 10:37:002.9[facility] BlptifmILSAUCVMJD0012-48-68 10:37:006.8 [facility] SesbodqXAPQGHZWME6239-52-07 10:37:004.47[facility] HermannHEMATOLOGY 2020-08-29 10:37:0010.6[facility] YwlxhyfGTMHHAKPYX6989-89-08 10:37:0034.0[facility] LnfbwebZLLYVMHDEE2964-36-49 10:37:0076.1[facility] WncnponTNXEXTULUK2105-43-99 10:37:00 Test Item Value Reference Range Interpretation Comments MCH (test code = MCH) 23.8 pg 27.0-31.0 [facility] LxzifpkEMBVTGADCG5221-21-50 10:37:0031.3[facility] HermannHEMATOLOGY 2020-08-29 10:37:0018.2[facility] OputtehHXWAZXZVRA8323-60-99 10:37:83576Mgzloyji CmnflsiGQPWSUCAQQ9861-76-42 10:37:007.5[facility] XvfzrkfTOHOJAWHAJ9362-18-57 10:37:00 Test Item Value Reference Range Interpretation Comments PT (test code = PT) 12.8 s 12.0-14.7 [facility] BpcplxjSNXCFGAMDC9595-52-48 10:37:00 Test Item Value Reference Range Interpretation Comments INR (test code = INR) 0.97 1 0.85-1.17 [facility] AphasthUHGBLSUGZW1686-27-59 10:37:00 Test Item Value Reference Range Interpretation Comments PTT (test code = PTT) 25.0 s 22.9-35.8 [facility] BdunoxbOFCFFHJCOW1622-13-05 10:37:0070.5[facility]annHEMATOLOGY 2020-08-29 10:37:0018.8[facility] MnlwrshGWMUKGXFHS8046-28-76 10:37:009.5[facility] EkpoffpARHGZERBNU3175-62-08 10:37:000.9[facility] SvyqcduJUHFXZVKDY2146-57-87 10:37:000.3[facility] NjrxlzePGULYEBXKZ2266-85-96 10:37:004.8[facility] CTXNNNGKXY2193-81-08 10:37:001.3[facility] MetpyncBUEJTMNYRY2017-68-90 10:37:000.6 [facility] GwoiubgKXQGSAFMOV1976-62-14 10:37:000.1[facility]annHEMATOLOGY 2020-08-29 10:37:001+ *ABN*(08/29/20 5:37 AM)[facility] MkqkdykAVJTAPYHQZ2590-44-97 10:37:00Not Detected (08/29/20 5:37 AM)[facility], GC, TV,PCR, IN [id number] 15:38:00 Test Item Value Reference Range Interpretation Comments FT (test code = CHTR) Not detected (qualifier Not Detected N value) FT (test code = Not detected (qualifier Not Detected N NGONO) value) FT (test code = TRVG) Not detected (qualifier Not Detected N value) [facility] WITH [id number] 10:57:00 Test Item Value Reference Range Interpretation Comments Color (test code = UCOLR) Dk. Yellow Clarity (test code = UCLAR) Hazy Glucose (test code = UGLUC) NEGATIVE NEGATIVE N Bilirubin (test code = UBILI) NEGATIVE NEGATIVE N Ketones (test code = UKET) NEGATIVE NEGATIVE N Specific [place] (test code = 1.025 1.005-1.030 A [...] = None Seen None Seen N URCRYS) [facility]"
[2022-07-01] MEDS ORDERED: KETOROLAC 30 MG/ML INJ ONE (17:45)
--- NOTE | 2022-07-01 18:12 | RAD REPORT ---
EXAM DESCRIPTION: RAD - Chest Pa And Lat (2 Views) - 07/01/2022 6:06 pm CLINICAL HISTORY: fall Chest pain. COMPARISON: Chest Single View dated 06/24/2022; Chest Single View dated 06/01/2022; Chest Single View d ated 05/09/2022; Chest Single View dated 05/07/2022 FINDINGS: The lungs are clear. The heart is mildly to moderately enlarged. No displaced fractures. B ilateral total shoulder arthroplasties.
--- NOTE | 2022-07-01 18:19 | RAD REPORT ---
EXAM DESCRIPTION: RAD - Wrist Left 3 View - 07/01/2022 6:06 pm CLINICAL HISTORY: Pain Pain COMPARISON: Wrist Left 3 View dated 01/12/2022; Wrist Left 3 View dated 01/04/2022 FINDINGS: Deformity of the distal radius is likely related to prior trauma. Moderate radiocarpal christianne int arthritic changes are present. Widening of the scapholunate interval likely indicates tear of the ligament. An acute fracture is not seen.
--- NOTE | 2022-07-01 18:33 | EDPHYS ---
Physician Documentation [facility] Name: Marjan Kolb Age: 67 yrs Sex: Female : 1955 Arrival Date: 07/01/2022 Time: 16:33 Bed 15 Private MD: ED Physician Howard Samaniego HPI: 07/01 23:01 This 67 yrs old Female presents to ER via Wheelchair with complaints of Fall Injury, snw Arm Pain. 23:01 Details of fall: The patient fell from a height, w/c, from seated position, out of a snw wheelchair. Onset: The symptoms/episode began/occurred suddenly, 2 day(s) ago, and became persistent. Associated injuries: The patient sustained left wrist and left chest wall, contusion. Severity of symptoms: At their worst the symptoms were mild. The patient has experienced similar episodes in the past, chronically. The patient has been recently seen at the [facility] Emergency Department, this week. Historical: - Allergies: 16:46 Azithromycin; mb9 16:46 Bactrim; mb9 16:46 Fentanyl; mb9 16:46 Sulfa (Sulfonamide Antibiotics); mb9 16:46 TRIMETHOPRIM; mb9 16:46 butorphanol; mb9 16:46 Reglan; mb9 - Home Meds: 16:46 clopidogrel oral [Active]; mb9 - PMHx: 16:46 Anxiety; Atrial fibrillation; Bipolar disorder; Hepatitis; esophageal varicies; HIV mb9 positive; Hypertensive disorder; Migraine; panic attack; - PSHx: 16:46 None; mb9 - Immunization history:: Adult Immunizations up to date. - Social history:: Smoking status: Patient/guardian denies using tobacco, the patient reports quitting approximately 3 years ago. ROS: 22:59 Constitutional: Negative for fever, chills, and weight loss, Eyes: Negative for injury, snw pain, redness, and discharge, ENT: Negative for injury, pain, and discharge, Neck: Negative for injury, pain, and swelling, Cardiovascular: Negative for chest pain, palpitations, and edema, Respiratory: Negative for shortness of breath, cough, wheezing, and pleuritic chest pain, Abdomen/GI: Negative for abdominal pain, nausea, vomiting, diarrhea, and constipation, Back: Negative for injury and pain, : Negative for injury, bleeding, discharge, and swelling, Skin: Negative for injury, rash, and discoloration, Neuro: Negative for headache, weakness, numbness, tingling, and seizure, Psych: Negative for depression, anxiety, suicide ideation, homicidal ideation, and hallucinations. 22:59 MS/extremity: Positive for injury or acute deformity, of the left wrist and left chest wall. Exam: 22:58 Eyes: Pupils equal round and reactive to light, extra-ocular motions intact. Lids and snw lashes normal. Conjunctiva and sclera are non-icteric and not injected. Cornea within normal limits. Periorbital areas with no swelling, redness, or edema. ENT: Nares patent. No nasal discharge, no septal abnormalities noted. Tympanic membranes are normal and external auditory canals are clear. Oropharynx with no redness, swelling, or masses, exudates, or evidence of obstruction, uvula midline. Mucous membranes moist. Neck: Trachea midline, no thyromegaly or masses palpated, and no cervical lymphadenopathy. Supple, full range of motion without nuchal rigidity, or vertebral point tenderness. No Meningismus. Chest/axilla: Normal chest wall appearance and motion. Nontender with no deformity. No lesions are appreciated. Cardiovascular: Regular rate and rhythm with a normal S1 and S2. No gallops, murmurs, or rubs. Normal PMI, no JVD. No pulse deficits. Respiratory: Lungs have equal breath sounds bilaterally, clear to auscultation and percussion. No rales, rhonchi or wheezes noted. No increased work of breathing, no retractions or nasal flaring. Abdomen/GI: Soft, non-tender, with normal bowel sounds. No distension or tympany. No guarding or rebound. No evidence of tenderness throughout. Back: No spinal tenderness. No costovertebral tenderness. Full range of motion. Skin: Warm, dry with normal turgor. Normal color with no rashes, no lesions, and no evidence of cellulitis. Neuro: Awake and alert, GCS 15, oriented to person, place, time, and situation. Cranial nerves II-XII grossly intact. Motor strength 5/5 in all extremities. Sensory grossly intact. Cerebellar exam normal. Normal gait. Psych: Awake, alert, with orientation to person, place and time. Behavior, mood, and affect are within normal limits. 22:58 Constitutional: The patient appears alert, awake, unkempt. 22:58 Head/face: Noted is healing ecchymosis to right upper forehead/ecchymosis to upper eyelid. 22:58 Musculoskeletal/extremity: Extremities: grossly normal except: noted in the left wrist: contusion, tenderness, + remote fracture. Vital Signs: 16:43 BP 198 / 101; Pulse 67; Resp 20; Temp 98.8; Pulse Ox 100% ; Weight 79.38 kg; Height 5 mb9 ft. 4 in. (162.56 cm); Pain 9/10; 16:43 Body Mass Index 30.04 (79.38 kg, 162.56 cm) mb9 MDM: 17:05 Patient medically screened. snw 23:00 Differential diagnosis: abrasion, contusion, fracture, sprain, strain. Data reviewed: snw vital signs, nurses notes, radiologic studies. Care significantly affected by the following Social Determinants of Health: Poor access to transportation, Unemployment. Counseling: I had a detailed discussion with the patient and/or guardian regarding: the historical points, exam findings, and any diagnostic results supporting the discharge/admit diagnosis, the presence of at least one elevated blood pressure reading (>120/80) during this emergency department visit, radiology results, the need for outpatient follow up, to return to the emergency department if symptoms worsen or persist or if there are any questions or concerns that arise at home. Special discussion: I have referred the patient to see his PCP for further evaluation of high blood pressure. Based on the history and exam findings, there is no indication for further emergent testing or inpatient evaluation. I discussed with the patient/guardian the need to see the orthopedic surgeon for further evaluation of the symptoms. I discussed with the patient/guardian the need to see the primary care provider for further evaluation of the symptoms. 07/01 17:06 Order name: Chest Pa And Lat (2 Views) XRAY; Complete Time: 18:30 snw 07/01 17:06 Order name: Wrist Left (3 View) XRAY; Complete Time: 18:30 snw 07/01 18:30 Order name: Wrist Splint; Complete Time: 18:45 snw Administered Medications: No medications were administered Disposition: 07/02 07:43 Co-signature as Attending Physician, Howard Samaniego MD I reviewed the patient's care rt provided by the Advanced Practice Provider and agree with the diagnosis and treatment plan. Disposition Summary: 07/01/22 18:32 Discharge Ordered Location: Home snw Condition: Stable snw Diagnosis - Fall from non-moving wheelchair snw - Contusion of left wrist snw - Contusion of left front wall of thorax snw Followup: snw - With: Emergency Department - When: As needed - Reason: Worsening of condition Followup: snw - With: Private Physician - When: 2 - 3 days - Reason: Recheck today's complaints, Continuance of care, Re-evaluation by your physician Discharge Instructions: - Discharge Summary Sheet snw - Contusion snw - Rib Contusion snw - Fall Prevention in the Home, Adult snw - RICE Therapy for Routine Care of Injuries snw - Wrist Pain, Adult snw Forms: - Medication Reconciliation Form snw - Thank You Letter snw - Antibiotic Education snw - Prescription Opioid Use snw Signatures: Dispatcher [employer] EDMS Cristina Mueller, JOSE M-C TRAVERTINE INSTALLER-Csnw Jessie Cristina RN RN mb9 Howard Samaniego MD MD rt
--- NOTE | 2022-07-01 18:33 | ER ---
Nurse's Notes [facility] Name: Marjan Kolb Age: 67 yrs Sex: Female : 1955 Arrival Date: 07/01/2022 Time: 16:33 Bed 15 Private MD: Diagnosis: Fall from non-moving wheelchair;Contusion of left wrist;Contusion of left front wall of thorax Presentation: 07/01 16:43 Chief complaint: Patient states: "I was at [employer] and I fell out of my walker. I landed mb9 on my chest and caught my fall with my left wrist. It hurts really bad. I didn't pass out or hit my head. But I take blood thinners". Coronavirus screen: Vaccine status: Patient reports receiving the 2nd dose of the covid vaccine. Ebola Screen: No symptoms or risks identified at this time. Initial Sepsis Screen: Does the patient meet any 2 criteria? No. Patient's initial sepsis screen is negative. Does the patient have a suspected source of infection? No. Patient's initial sepsis screen is negative. Risk Assessment: Do you want to hurt yourself or someone else? Patient reports no desire to harm self or others. Onset of symptoms was July 01, 2022. 16:43 Method Of Arrival: Wheelchair mb9 16:43 Acuity: BLAYNE 3 mb9 Triage Assessment: 17:00 General: Appears in no apparent distress. uncomfortable, Behavior is cooperative, bp appropriate for age, anxious. Pain: Complains of pain in left wrist. EENT: No deficits noted. Neuro: No deficits noted. Cardiovascular: No deficits noted. Respiratory: No deficits noted. GI: No signs and/or symptoms were reported involving the gastrointestinal system. : No signs and/or symptoms were reported regarding the genitourinary system. Derm: No deficits noted. Musculoskeletal: No deficits noted. Historical: - Allergies: 16:46 Azithromycin; mb9 16:46 Bactrim; mb9 16:46 Fentanyl; mb9 16:46 Sulfa (Sulfonamide Antibiotics); mb9 16:46 TRIMETHOPRIM; mb9 16:46 butorphanol; mb9 16:46 Reglan; mb9 - Home Meds: 16:46 clopidogrel oral [Active]; mb9 - PMHx: 16:46 Anxiety; Atrial fibrillation; Bipolar disorder; Hepatitis; esophageal varicies; HIV mb9 positive; Hypertensive disorder; Migraine; panic attack; - PSHx: 16:46 None; mb9 - Immunization history:: Adult Immunizations up to date. - Social history:: Smoking status: Patient/guardian denies using tobacco, the patient reports quitting approximately 3 years ago. Screenin:[facility] ED Fall Risk Assessment (Adult) History of falling in the last 3 months, mb9 including since admission Yes- fall prone (multiple falls) (3 pts) Confusion or Disorientation No (0 pts) Intoxicated or Sedated No (0 pts) Impaired Gait Yes (1 pt) Mobility Assist Device Used Yes (1 pt) Altered Elimination No (0 pt) Score/Fall Risk Level 3 or more points = High Risk Oriented to surroundings, Maintained a safe environment, Educated pt \\T\\ family on fall prevention, incl call for assistance when getting out of bed. Abuse screen: Denies threats or abuse. Nutritional screening: No deficits noted. Tuberculosis screening: No symptoms or risk factors identified. Assessment: 17:00 General: SEE TRIAGE NOTE. bp 17:59 Reassessment: PT RETURNED FROM RADIOLOGY. bp 18:45 Reassessment: PT DC HOME VIA WC. bp Vital Signs: 16:43 BP 198 / 101; Pulse 67; Resp 20; Temp 98.8; Pulse Ox 100% ; Weight 79.38 kg; Height 5 mb9 ft. 4 in. (162.56 cm); Pain 9/10; 16:43 Body Mass Index 30.04 (79.38 kg, 162.56 cm) mb9 ED Course: 16:33 Patient arrived in ED. as 16:35 Cristina Mueller FNP-C is PHCP. snw 16:35 Howard Samaniego MD is Attending Physician. snw 16:46 Triage completed. mb9 16:46 Arm band placed on. mb9 16:54 Bed in low position. Call light in reach. Side rails up X 1. Client placed on mb9 continuous cardiac and pulse oximetry monitoring. NIBP monitoring applied. Door closed. Noise minimized. Warm blanket given. 17:05 Carlos Eduardo Olivera, RN is Primary Nurse. bp 18:08 Chest Pa And Lat (2 Views) XRAY In Process Unspecified. EDMS 18:08 Wrist Left (3 View) XRAY In Process Unspecified. EDMS 18:45 No provider procedures requiring assistance completed. Patient did not have IV access bp during this emergency room visit. Velcro wrist splint applied to left wrist. Administered Medications: No medications were administered Medication: 17:00 VIS not applicable for this client. bp Outcome: 18:32 Discharge ordered by . kaela 18:45 Discharged to home via wheelchair. bp 18:45 Condition: stable 18:45 Discharge instructions given to patient, Instructed on discharge instructions, follow up and referral plans. Demonstrated understanding of instructions, follow-up care. 18:46 Patient left the ED. bp Signatures: Dispatcher [employer] EDMS Cristina Mueller, PROPELLANT ASSEMBLER-C PROPELLANT ASSEMBLER-Csnw Radha Simons Brian, RN RN Jessie Gonzalez RN RN mb9
[2022-07-01 18:50] VITALS: BP 198/101; TEMP 98.8; O2SAT 100
== END 2022-07-01 18:46 | disposition home or self-care (01) ==
LOC: ER 16:31
DX: S60.212A Contusion of left wrist, initial encounter (principal); S20.212A Contusion of left front wall of thorax, initial encounter; W05.0XXA Fall from non-moving wheelchair, initial encounter; I10 Essential (primary) hypertension; Z21 Asymptomatic human immunodeficiency virus [HIV] infection status; Z88.1 Allergy status to other antibiotic agents; Z88.2 Allergy status to sulfonamides; Z88.3 Allergy status to other anti-infective agents; Z88.5 Allergy status to narcotic agent; Z88.8 Allergy status to other drugs, medicaments and biological substances
CPT/HCPCS: 71046; 99283

== ENCOUNTER 2022-07-04 05:06 | Emergency (ER) | payer OTHER ==
--- OUTSIDE RECORDS SUMMARY | 2022-07-04 05:32 | XMS REPORT | Continuity of Care Document ---
:1955 Author Organization [facility] t Address [address] [place] [address] Care Team Providers Name Role Phone Urmila [...] Attending Clinician Unavailable Robbi Bal Attending Clinician [facility] Attending Clinician Unavailable Isaias Whiteside RN Attending Clinician Unavailable TOMY MARIE Attending Clinician Unavailable Reilly Means MD Attending Clinician Ofe Shields MD Attending Clinician Tomy Marie MD Attending Clinician Doctor Unassigned, [place] Attending Clinician Unavailable Bill COLES Attending Clinician Unavailable Bill Roes Attending Clinician CHARITY MCALLISTER Attending Clinician Unavailable Charity Mcallister MD Attending Clinician GADIEL KOEHLER Attending Clinician Unavailable Mike Lund Attending Clinician Unavailable NIKOLAI REEVES Attending Clinician Unavailable Eliseo Arce MD Attending Clinician Carol Ann IZQUIERDO, Sarai Lieberman Attending Clinician [phone] Ashly Pelletier MA Attending Clinician Unavailable Dagoberto Bass MD Attending Clinician [place] Evangelista Attending Clinician Lab, [facility] Attending Clinician Unavailable Monica Rodas MA Attending Clinician Unavailable Agustina Ortiz MA Attending Clinician Unavailable Rody Maguire RN Attending Clinician Unavailable Remigio MD, Saraswathi V. Attending Clinician HEMATPOUR, BEVERLY Attending Clinician Unavailable Caridad SALGUERO, Gloria Attending Clinician Xiao RAMIREZ, Michael [place] Attending Clinician Unavailable Team, [facility] Attending Clinician UnavailDO PORSHA Newell Attending Clinician Unavailable Gadiel Koehler MD Attending Clinician Tyrone JENKINS, Eveline Sierra Attending Clinician Eladio Colorado RN Attending Clinician Unavailable Geraldine SALGUERO, Leyda Attending Clinician [phone] Selvin RAMIREZ, Stefanie Attending Clinician Unavailable [...] Number Effective Date Expiration Date S gabino [facility] [id number] 2012 STAR PLUS OON 00:00:00 [facility] [id number] 2019 DUAL COMPLETE HMO 00:00:00 [facility] [id number] 2019 PLUS 00:00:00 [facility] [id number] 2019 [facility] [place] STAR 00:00:00 [employer] MEDICARE ADV [id number] 2019 2019 00:00:00 00:00:00 Problems Condition Condition Condition Status Onset Resolution Last Treating Co mments Source Name Details Category Date Date Treatment Clinician Date Dyspnea, Dyspnea, Disease Active Unive rs unspecifie unspecifie 02-11 it y of d type d type 00:00: [place] [address] Medical Branch Gastropare Gastropare Disease Active Overview : Methodi sis sis 4-[address] 00:[facility] note l might be different from the original. Added automatic ally from request for surgery [id number] Dysphagia Dysphagia Disease Active Overview: Methodi 4-[address] 00:00: [facility] 00 note l might be different from the original. 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 2020-10-15 Get PVI PVI 3-30 17:07:00 l ABLATION ABLATION 00:00: Patel n W/ CARTO / W/ CARTO / 00 GA / T GA / T Active 08/19/2020 [facility] [place] [facility] Food Food Disease Active 2019-05 Methodi intoleranc [...] Active 2014-05 Univers 0-03 ity of 00:00: [place] [facility] Hypovolemi Hypovolemi Disease Active 2014-05 [...] [facility] prim 1-25 Clear 00:00: [facility] codeine DA Active SV N/V [facility] 1-25 Clear 00:00: [facility] Metoclop Propensi Active [place] ramide ty to 12-12 Health adverse 00:00: reaction 00 s BUTORPHA DRUG Active Unknown-Cmnt Un matt NOL INGREDI 11-25 ity of 00:00: [place] [facility] Butorpha Drug Active Unknown - [...] 2017- Univers INGREDI 2-08 ity of 00:00: [place] [facility] TRIMETHO DRUG Active Hives Univers [...] father Diabetes [facility] Natural father Other - see comments [facility] Natural father Coronary Heart [facility] [place] Disease [facility] Hy[facility] mother [facility] Social History Social Habit Start Date Stop Date Quantity Comments Source History SDOH [facility] Alcohol Frequency Hospita l History SDOH [facility] Alcohol Std Drinks Hospit al History SDDC [facility] B[facility] Exposure to 2022-04-30 2022-05-10 Yes University of SARS-CoV-2 (event) 00:00:00 10:25:00 [facility] Tobacco use and 2022-02-11 2022-02-11 Former smokeless Uni versity of exposure 00:00:00 00:00:00 tobacco user [facility] Tobacco Comment 2022-02-11 2022-02-11 Smokes approx 1-2 Un iversity of 00:00:00 00:00:00 cigarettes per [facility] day when she Branch smokes Alcohol intake 2020-12-08 2020-12-08 Current drinker [facility] 00:00:00 00:00:00 of [facility] (finding) Cigarettes smoked 2020-09-05 2020-09-[address] current ([facility] - [facility]orted Cigarette 2020-09-05 2020-09-05 [facility] pack-years 00:00:00 00:00:00 Hospital Alcohol Comment 2016-09-23 2016-09-23 rare [facility] 00:00:00 00:00:00 Hospital History of tobacco 2011-09-29 User of smokeless University of use 00:00:00 tobacco [facility][birth year] At [birth year] [facility] 00[facility]00 Smoking Status Start Date Stop Date Source Ex-smoker 2022-02-11 00:00:00 2022-02-11 00:00:00 Universi ty of [facility] Medications Ordered Filled Start Stop Current Ordering Indication Dosage Frequency Signature Comments Components Source Medication Medication Date Date Medication? Clinician (SIG) Name Name potassium 2021-05- No 10meq 10 mEq, IV Univers chloride in 07-11 Piggyback, i ty of water 10 20:00: 22:00 ONCE, 1 [place] mEq/100 mL 00 :00 dose, On Medic al RTU 10 mEq [facility] 05/10/22 at 1400, Administer over 60 Minutes, 100 mL magnesium 2021-05 No 800mg 800 mg, Uni vers oxide 07-11 Oral, ity of (MAG-OX 20:00: 19:37 ONCE, 1 [place] 400) tablet 00 :00 dose, On Medi porfirio 800 mg [facility] 05/10/22 at 1400, Routine KCL 2021-05- No 40meq 40 mEq, Univers (KLOR-CON 07-11 Oral, ity of M20) tablet 19:15: 19:37 ONCE, 1 [place] 40 mEq 00 :00 dose, On Medical [facility] 05/10/22 at 1315, JOE hydralAZINE 2021-05- No 10mg 10 mg, Uni vers (APRESOLINE 07-11 Slow IV ity of ) injection 18:45: 18:42 [place] 10 mg 00 :00 ONCE, 1 Medical dose, On [facility] 05/10/22 at 1245, JOE NaCl 0.9% 2021-05- No 1000mL at 999 Uni vers (NS) bolus 07-11 mL/hr, ity of infusion 17:45: 20:00 1,000 mL, [place] 1,000 mL 00 :00 IV Medical Infusion, Branch ONCE, 1 dose, On [facility] 05/10/22 at 1145, JOE cefpodoxime 2021-05- Yes [id number] 100mg Take 1 Univers 100 mg 2-17 12-25 tablet by ity of tablet 00:00: 05:59 mouth in [place] 00 :00 the [facility] Branch and 1 tablet in the evening. Do all this for 7 days. cefpodoxime 2021-05- Yes [id number] 100mg Take 1 Univers 100 mg 2-17 12-25 tablet by ity of tablet 00:00: 05:59 mouth in [place] 00 :00 the [facility] morning Branch and 1 tablet in the evening. Do all this for 7 days. cefpodoxime 2021-05- Yes [id number] 100mg Take 1 Univers 100 mg 2-17 12-25 tablet by ity of tablet 00:00: 05:59 mouth in [place] 00 :00 the Medical morning Branch and [...] Medical ONCE, 1 Branch dose, On [facility] 05/06/22 at 1800, JOE ketorolac 2021-05 No 15mg 15 mg, Unive rs (TORADOL) 2-15 12-15 Slow IV ity of injection 22:00: 22:19 Push, [place] 15 mg 00 :00 ONCE, 1 Medical dose, On Branch [facility] 05/06/22 at 1600, JOE NaCl 0.9% 2021-05- No 1000mL at 999 Uni vers (NS) bolus 2-15 12-15 mL/hr, ity of infusion 22:00: 23:41 1,000 mL, [place] 1,000 mL 00 :00 IV Medical Infusion, Branch ONCE, 1 dose, On [facility] 05/06/22 at 1600, JOE ondansetron 2021-05- No 8mg 8 mg, Slow Univers (ZOFRAN 2-15 12-15 IV Push, ity of (PF)) 21:15: 22:19 ONCE, 1 [place] injection 8 00 :00 dose, On Medi porfirio mg [place] 05/06/22 at 1515, JOE ondansetron 2021-05 Yes [id number] 1-2 U nivers 4 mg tablet 2-15 tablets ity o f 00:00: every 8 [place] 00 hours as Medical needed for Branch nausea benzonatate 2021-05 Yes [id number] 200mg Take 1 Univers 200 mg 2-15 capsule by ity of capsule 00:00: mouth 3 [place] 00 (three) Medical times Branch daily as needed for Cough. albuterol 2021-05 Yes [id number] 2{puff} Inhale 2 Univers 90 2-15 Puffs ity of mcg/actuati 00:00: every 4 [place] on inhaler 00 (four) Medical hours as Branch needed for Wheezing or Shortness of Breath. butalbital- 2021-05 Yes [id number] 1{tbl} Take 1 Univers acetaminoph 2-15 tablet by ity of en-caff 00:00: mouth [place] 50-325-40 00 every 4 Medical mg tablet (four) Branch hours as needed (headache) . ondansetron 2021-05 Yes [id number] 1-2 U nivers 4 mg tablet 2-15 tablets ity o f 00:00: every 8 [place] 00 hours as Medical needed for Branch nausea benzonatate 2021-05 Yes [id number] 200mg Take 1 Univers 200 mg 2-15 capsule by ity of capsule 00:00: mouth 3 [place] 00 (three) Medical times Branch daily as needed for Cough. albuterol 2021-05 Yes [id number] 2{puff} Inhale 2 Univers 90 2-15 Puffs ity of mcg/actuati 00:00: every 4 [place] on inhaler 00 (four) Medical hours as Branch needed for Wheezing or Shortness of Breath. butalbital- 2021-05 Yes [id number] 1{tbl} Take 1 Univers acetaminoph 2-15 tablet by ity of en-caff 00:00: mouth [place] 50-325-40 00 every 4 Medical mg tablet (four) Branch hours as needed (headache) . ondansetron 2021-05 Yes [id number] 1-2 U nivers 4 mg tablet 2-15 tablets ity o f 00:00: every 8 [place] 00 hours as Medical needed for Branch nausea benzonatate 2021-05 Yes [id number] 200mg Take 1 Univers 200 mg 2-15 capsule by ity of capsule 00:00: mouth 3 [place] 00 (three) Medical times Branch daily as needed for Cough. albuterol 2021-05 Yes [id number] 2{puff} Inhale 2 Univers 90 2-15 Puffs ity of mcg/actuati 00:00: every 4 [place] on inhaler 00 (four) Medical hours as Branch needed for Wheezing or Shortness of Breath. butalbital- 2021-05 Yes [id number] 1{tbl} Take 1 Univers acetaminoph 2-15 tablet by ity of en-caff 00:00: mouth [place] 50-325-40 00 every 4 Medical mg tablet (four) Branch hours as needed (headache) . ondansetron 2021-05 Yes [id number] 1-2 U nivers 4 mg tablet 2-15 tablets ity o f 00:00: every 8 [place] 00 hours as Medical needed for Branch nausea benzonatate 2021-05 Yes [id number] 200mg Take 1 Univers 200 mg 2-15 capsule by ity of capsule 00:00: mouth 3 [place] 00 (three) Medical times Branch daily as needed for Cough. albuterol 2021-05 Yes [id number] 2{puff} Inhale 2 Univers 90 2-15 Puffs ity of mcg/actuati 00:00: every 4 [place] on inhaler 00 (four) Medical hours as Branch needed for Wheezing or Shortness of Breath. butalbital- 2021-05 Yes [id number] 1{tbl} Take 1 Univers acetaminoph 2-15 tablet by ity of en-caff 00:00: mouth [place] 50-325-40 00 every 4 Medical mg tablet (four) Branch hours as needed (headache) . ondansetron 2021-05 Yes [id number] 1-2 U nivers 4 mg tablet 2-15 tablets ity o f 00:00: every 8 [place] 00 hours as Medical needed for Branch nausea benzonatate 2021-05 Yes [id number] 200mg Take 1 Univers 200 mg 2-15 capsule by ity of capsule 00:00: mouth 3 [place] 00 (three) Medical times Branch daily as needed for Cough. albuterol 2021-05 Yes [id number] 2{puff} Inhale 2 Univers 90 2-15 Puffs ity of mcg/actuati 00:00: every 4 [place] on inhaler 00 (four) Medical hours as Branch needed for Wheezing or Shortness of Breath. butalbital- 2021-05 Yes [id number] 1{tbl} Take 1 Univers acetaminoph 2-15 tablet by ity of en-caff 00:00: mouth [place] 50-325-40 00 every 4 Medical mg tablet (four) Branch hours as needed (headache) . ondansetron 2021-05 Yes [id number] 1-2 U nivers 4 mg tablet 2-15 tablets ity o f 00:00: every 8 [place] 00 hours as Medical needed for Branch nausea benzonatate 2021-05 Yes [id number] 200mg Take 1 Univers 200 mg 2-15 capsule by ity of capsule 00:00: mouth 3 [place] 00 (three) Medical times Branch daily as needed for Cough. albuterol 2021-05 Yes [id number] 2{puff} Inhale 2 Univers 90 2-15 Puffs ity of mcg/actuati 00:00: every 4 [place] on inhaler 00 (four) Medical hours as Branch needed for Wheezing or Shortness of Breath. butalbital- 2021-05 Yes [id number] 1{tbl} Take 1 Univers acetaminoph 2-15 tablet by ity of en-caff 00:00: mouth [place] 50-325-40 00 every 4 Medical mg tablet (four) Branch hours as needed (headache) . nirmatrelvi 2021-05- Yes [id number] 2{tbl} Take 2 Univers r-ritonavir 2-15 12-21 tablets by i ty of (PAXLOVID, 00:00: 05:59 mouth in [place] EUA,) 300 00 :00 the Medical mg (150 mg morning Branch x 2)-100 mg and 2 tablet tablets in the evening. Do all this for 5 days. nirmatrelvi 2021-05- Yes [id number] 2{tbl} Take 2 Univers r-ritonavir 2-15 12-21 tablets by i ty of (PAXLOVID, 00:00: 05:59 mouth in [place] EUA,) 300 00 :00 the Medical mg (150 mg morning Branch x 2)-100 mg and 2 tablet tablets in the evening. Do all this for 5 days. nirmatrelvi 2021-05- Yes [id number] 2{tbl} Take 2 Univers r-ritonavir 2-15 12-21 tablets by i ty of (PAXLOVID, 00:00: 05:59 mouth in [place] EUA,) 300 00 :00 the Medical mg (150 mg morning Branch x 2)-100 mg and 2 tablet tablets in the evening. Do all this for 5 days. nirmatrelvi 2021-05- Yes [id number] 2{tbl} Take 2 Univers r-ritonavir 2-15 - [...] 04/22/22 at 1645, Routine amoxicillin 2021-05 Yes [id number] 1{tbl} Take 1 Univers -clavulanat 2- [id number] tablet by i ty of e 875-125 00:00: mouth [place] mg per 00 every 12 Medical tablet (twelve) Branch hours. ondansetron 2021-05 Yes [id number] 4mg Take 1 Univers 4 mg 2- 364545 tablet by ity of disintegrat 00:00: mouth [place] ing tablet 00 every 8 Medica l (eight) Branch hours as needed for Nausea and Vomiting (N/V). amoxicillin 2021-05 Yes [id number] 1{tbl} Take 1 Univers -clavulanat 2- [id number] tablet by i ty of e 875-125 00:00: mouth [place] mg per 00 every 12 Medical tablet (twelve) Branch hours. ondansetron 2021-05 Yes [id number] 4mg Take 1 Univers 4 mg 2-01 [id number] tablet by ity of disintegrat 00:00: mouth [place] ing tablet 00 every 8 Medica l (eight) Branch hours as needed for Nausea and Vomiting (N/V). amoxicillin 2021-05 Yes [id number] 1{tbl} Take 1 Univers -clavulanat 2-01 [id number] tablet by i ty of e 875-125 00:00: mouth [place] mg per 00 every 12 Medical tablet (twelve) Branch hours. ondansetron 2021-05 Yes [id number] 4mg Take 1 Univers 4 mg 2-01 [id number] tablet by ity of disintegrat 00:00: mouth [place] ing tablet 00 every 8 Medica l (eight) Branch hours as needed for Nausea and Vomiting (N/V). amoxicillin 2021-05 Yes [id number] 1{tbl} Take 1 Univers -clavulanat 2-01 [id number] tablet by i ty of e 875-125 00:00: mouth [place] mg per 00 every 12 Medical tablet (twelve) Branch hours. ondansetron 2021-05 Yes [id number] 4mg Take 1 Univers 4 mg 2-01 [id number] tablet by ity of disintegrat 00:00: mouth [place] ing tablet 00 every 8 Medica l (eight) Branch hours as needed for Nausea and Vomiting (N/V). amoxicillin 2021-05 Yes [id number] 1{tbl} Take 1 Univers -clavulanat 2-01 [id number] tablet by i ty of e 875-125 00:00: mouth [place] mg per 00 every 12 Medical tablet (twelve) Branch hours. ondansetron 2021-05 Yes [id number] 4mg Take 1 Univers 4 mg 2- [id number] tablet by ity of disintegrat 00:00: mouth [place] ing tablet 00 every 8 Medica l (eight) Branch hours as needed for Nausea and Vomiting (N/V). amoxicillin 2021-05 Yes [id number] 1{tbl} Take 1 Univers -clavulanat 2-01 [id number] tablet by i ty of e 875-125 00:00: mouth [place] mg per 00 every 12 Medical tablet (twelve) Branch hours. ondansetron 2021-05 Yes [id number] 4mg Take 1 Univers 4 mg 2-01 [id number] tablet by ity of disintegrat 00:00: mouth [place] ing tablet 00 every 8 Medica l (eight) Branch hours as needed for Nausea and Vomiting (N/V). amoxicillin 2021-05 Yes [id number] 1{tbl} Take 1 Univers -clavulanat 2-01 [id number] tablet by i ty of e 875-125 00:00: mouth [place] mg per 00 every 12 Medical tablet (twelve) Branch hours. ondansetron 2021-05 Yes [id number] 4mg Take 1 Univers 4 mg 2-01 [id number] tablet by ity of disintegrat 00:00: mouth [place] ing tablet 00 every 8 Medica l (eight) Branch hours as needed for Nausea and Vomiting (N/V). amoxicillin 2021-05 Yes [id number] 1{tbl} Take 1 Univers -clavulanat 06-23 [id number] tablet by i ty of e 875-125 00:00: mouth [place] mg per 00 every 12 Medical tablet (twelve) Branch hours. ondansetron 2021-05 Yes [id number] 4mg Take 1 Univers 4 mg 06-23 [id number] tablet by ity of disintegrat 00:00: mouth [place] ing tablet 00 every 8 Medica l (eight) Branch hours as needed for Nausea and Vomiting (N/V). zoster 2021-05- No [id number] .5mL 0.5 mL by Univers vaccine, 0-14 10-15 9104 Intramuscu ity of recombinant 00:00: 04:59 lar route [place] (SHINGRIX, 00 :00 once now Medic al PF,) for 1 Branch injection dose. And repeat in 2-6 months zoster 2021-05- No [id number] .5mL 0.5 mL by Univers vaccine, 0-14 10-15 9104 Intramuscu ity of recombinant 00:00: 04:59 lar route [place] (SHINGRIX, 00 :00 once now Medic al PF,) for 1 Branch injection dose. And repeat in 2-6 months zoster 2021-05- No [id number] .5mL 0.5 mL by Univers vaccine, 0-14 [...] 2021-0 Yes 1mg Take 1 mg Un mtat (KLONOPIN) 9-27 by mouth ity o f 1 mg tablet 19:28: at [place] [address] bedtime. Medical Branch traZODone 2021-0 Yes 50mg Take 50 mg Un matt 100 mg 9-27 by mouth ity of tablet 19:28: at [place] [address] bedtime. Medical Branch hydralAZINE 2021-0 Yes 25mg [...] 100 mg 04 (two) Medical tablet times [place] daily. amLODIPine 2021-0 Yes 10mg Take 10 mg U nivers (NORVASC) 9-27 by mouth ity of 10 mg 19:28: daily. [place] tablet 04 Medical Branch clonazePAM 2021-0 Yes 1mg Take 1 mg Un matt (KLONOPIN) 9-27 by mouth ity o f 1 mg tablet 19:28: at [place] [address] bedtime. Medical Branch traZODone 2021-0 Yes 50mg Take 50 mg Un matt 100 mg 9-27 by mouth ity of tablet 19:28: at [place] [address] bedtime. Medical Branch hydralAZINE 2021-0 Yes 25mg [...] o f 1 mg tablet 19:28: at [place] [address] bedtime. Medical Branch traZODone 2021-0 Yes 50mg Take 50 mg Un matt 100 mg 9-27 by mouth ity of tablet 19:28: at [place] [address] bedtime. Medical Branch hydralAZINE 2021-0 Yes 25mg [...] o f 1 mg tablet 19:28: at [place] [address] bedtime. Medical Branch traZODone 2021-0 Yes 50mg Take 50 mg Un matt 100 mg 9-27 by mouth ity of tablet 19:28: at [place] [address] bedtime. Medical Branch hydralAZINE 2021-0 Yes 25mg [...] o f 1 mg tablet 19:28: at [place] [address] bedtime. Medical Branch traZODone 2021-0 Yes 50mg Take 50 mg Un matt 100 mg 9- by mouth ity of tablet 19:28: at [place] [address] bedtime. Medical Branch hydralAZINE 2021-0 Yes 25mg [...] o f 1 mg tablet 19:28: at [place] [address] bedtime. Medical Branch traZODone 2022-0 Yes 50mg Take 50 mg Un matt 100 mg 9-27 by mouth ity of tablet 19:28: at [place] [address] bedtime. Medical Branch hydralAZINE 2-0 Yes 25mg [...] o f 1 mg tablet 19:28: at [place] [address] bedtime. Medical Branch traZODone 2-0 Yes 50mg Take 50 mg Un matt 100 mg 9-27 by mouth ity of tablet 19:28: at [place] [address] bedtime. Medical Branch hydralAZINE 2021-0 Yes 25mg [...] o f 1 mg tablet 19:28: at [place] [address] bedtime. Medical Branch traZODone 2022-0 Yes 50mg Take 50 mg Un matt 100 mg 9-27 by mouth ity of tablet 19:28: at [place] [address] bedtime. Medical Branch hydralAZINE 2-0 Yes 25mg [...] o f 1 mg tablet 19:28: at [place] [address] bedtime. Medical Branch traZODone 2-0 Yes 50mg Take 50 mg Un matt 100 mg 9-27 by mouth ity of tablet 19:28: at [place] [address] bedtime. Medical Branch hydralAZINE 2-0 Yes 25mg [...] o f 1 mg tablet 19:28: at [place] [address] bedtime. Medical Branch traZODone 2021-0 Yes 50mg Take 50 mg Un matt 100 mg 9-27 by mouth ity of tablet 19:28: at [place] [address] bedtime. Medical Branch hydralAZINE 2021-0 Yes 25mg [...] o f 1 mg tablet 19:28: at [place] [address] bedtime. Medical Branch traZODone 2021-0 Yes 50mg Take 50 mg Un matt 100 mg 9-27 by mouth ity of tablet 19:28: at [place] [address] bedtime. Medical Branch hydralAZINE 2021-0 Yes 25mg [...] o f 1 mg tablet 19:28: at [place] [address] bedtime. Medical Branch traZODone 2-0 Yes 50mg Take 50 mg Un matt 100 mg 9-27 by mouth ity of tablet 19:28: at [place] [address] bedtime. Medical Branch hydralAZINE 2-0 Yes 25mg [...] o f 1 mg tablet 19:28: at [place] [address] bedtime. Medical Branch traZODone 2021-0 Yes 50mg Take 50 mg Un matt 100 mg 9-27 by mouth ity of tablet 19:28: at [place] [address] bedtime. Medical Branch hydralAZINE 2021-0 Yes 25mg [...] o f 1 mg tablet 19:28: at [place] [address] bedtime. Medical Branch traZODone 2021-0 Yes 50mg Take 50 mg Un matt 100 mg 9-27 by mouth ity of tablet 19:28: at [place] [address] bedtime. Medical Branch hydralAZINE 2021-0 Yes 25mg [...] mouth ity of 10 mg 19:28: daily. [place] tablet 04 Medical Branch clonazePAM 2021-0 Yes 1mg Take 1 mg Un matt (KLONOPIN) 9-27 by mouth ity o f 1 mg tablet 19:28: at [place] [address] bedtime. Medical Branch traZODone 2021-0 Yes 50mg Take 50 mg Un matt 100 mg 9-27 by mouth ity of tablet 19:28: at [place] [address] bedtime. Medical Branch hydralAZINE 2021-0 Yes 25mg [...] o f 1 mg tablet 19:28: at [place] [address] bedtime. Medical Branch traZODone Yes 50mg Take 50 mg Un matt 100 mg 02-16 by mouth ity of tablet 19:28: at [place] [address] bedtime. Medical Branch cefpodoxime 2021- No [id number] 200mg Take 1 Univers 200 mg 02-16 tablet by ity of tablet 00:00: 04:59 mouth in [place] 00 :00 the Medical morning Branch and 1 tablet in the evening. Do all this for 3 days. cefpodoxime 2021- No [id number] 200mg Take 1 Univers 200 mg 02-16 tablet by ity of tablet 00:00: 04:59 mouth in [place] 00 :00 the Medical morning Branch and 1 tablet in the evening. Do all this for 3 days. haloperidol 2021- No 2mg 2 mg, Slow Univers lactate 02-15 IV Push, ity of (HALDOL) 09:00: 09:12 ONCE, 1 [place] injection 2 00 :00 dose, On Medi porfirio mg Mon Branch 02/15/22 at 0400, Routine hydroCHLORO Yes 25mg 25 mg, Univ ers thiazide 9-25 Oral, ity of (ESIDRIX) 14:00: DAILY, [place] capsule 25 00 First dose Med ical mg on [place] 02/14/22 at 0900, Until Discontinu ed, Routine butalbital- Yes 1{tbl} 1 tablet, Univers acetaminoph - Oral, ity of en-caff 18:46: Q6HPRN, [place] (ESGIC) 06 Starting Medical 50-325-40 on Sat [...] of 2,000 mg in 17:00: 18:24 Piggyback, [place] NaCl 0.9% 00 :00 Q24H ABX, Medic [...] 19:00: dose on [place] cream 00 [facility] Medical 02/11/22 at Branch 1400, Until Discontinu ed, Routine busPIRone 202-0 Yes 30mg 30 mg, Univer s (BUSPAR) 02-11 Oral, BID, ity o f tablet 30 18:00: First dose [place] mg 00 on [facility] Medical 02/11/22 at Branch 1300, Until Discontinu ed, Routine raltegravir 2021-0 Yes 400mg 400 mg, Un matt (ISENTRESS) 02-11 Oral, BID, it y of tablet 400 18:00: First dose [place] mg 00 on [facility] Medical 02/11/22 at Branch 1300, Until Discontinu ed, JOE metoprolol 2021-0 Yes 100mg 100 mg, Uni vers tartrate 02-11 Oral, BID, ity o f (LOPRESSOR) 18:00: First dose [place] tablet 100 00 on [facility] mg 02/11/22 at Branch 1300, Until Discontinu ed, Routine lisinopriL 2021-0 Yes 40mg 40 mg, Unive rs (PRINIVIL,Z 02-11 Oral, BID, it y of ESTRIL) 18:00: First dose [place] tablet 40 00 on [facility] mg 02/11/22 at Branch 1300, Until Discontinu ed, Routine emtricitabi 2021-0 Yes 1{tbl} 1 [facility] Oral, ity of r alafen 18:00: DAILY, [place] (DESCOVY) 00 First dose Medi porfirio tablet 1 on [facility] tablet 02/11/22 at 1300, Until Discontinu ed, Routine ipratropium 2021-0 Yes .5mg 0.5 mg, Uni vers (ATROVENT) 02-11 Inhalation ity of 0.02 % 17:57: , MERY, [place] nebulizer 10 Starting Medica l solution on [facility] Branch 0.5 mg 02/11/22 at 1257, [...] (after Branch last modificati on) on [facility] 02/11/22 at 1230, Until Discontinu ed, Routine HYDROcodone 2021- No 1{tbl} 1 tablet, Univers -acetaminop 02-11 Oral, ity of hen (NORCO 14:11: 17:37 Q6HPRN, [place] as 5) 5-325 mg 03 :24 Starting Medi porfirio tablet 1 on [facility] tablet 02/11/22 at 0911, Until Tue02/12/22 at 1237, Routine, Pain (scale 7-10) melatonin Yes 3mg 3 mg, Univers (MELATIN) 02-11 Oral, ity of tablet 3 mg 14:08: QHSPRN, [place] 17 Starting Medical on [facility] 02/11/22 at 0908, Until Discontinu ed, Routine, Insomnia acetaminoph 2021- No 1{tbl} 1 tablet, Univers en-codeine 02-11 Oral, ity of (TYLENOL 14:06: 17:37 Q6HPN, [place] #3) 300-30 19 :24 Starting Medic al mg tablet 1 on [facility] tablet 02/11/22 at 0906, Until Tue02/12/22 at 1237, Routine, Pain (scale 4-6) sennosides- Yes 1{tbl} 1 tablet, Univers docusate 02-11 Oral, ity of sodium 14:06: QDAILYPRN, [place] (SENOKOT-S) 09 Starting Medi porfirio 8.6-50 mg on [facility] per tablet 02/11/22 at 1 tablet 0906, Until Discontinu ed, Routine, Constipati on ondansetron Yes 4mg 4 mg, Slow Univers (ZOFRAN 02-11 IV Push, ity of (PF)) 14:05: Q6HPRN, [place] injection 4 59 Starting Medi porfirio mg on [place] [facility] 02/11/22 at 0905, Until Discontinu ed, Routine, Nausea and Vomiting (N/V) acetaminoph Yes 650mg 650 mg, Un matt en 02-11 Oral, ity of (TYLENOL) 14:04: Q6HPRN, [place] tablet 650 37 Starting Medic al mg [...] ity of ) 25 mg 09:10: daily. [place] tablet 54 [facility] amLODIPine 0 Yes 10mg Take 10 mg U nivers (NORVASC) 02-11 by mouth ity of 10 mg 09:10: daily. [place] tablet 54 [facility] piperacilli 2021- No 3.375g 3.375 [...] of therapy: 72 hours iopamidol 2- No [id number] 60mL 60 mL, Univers (ISOVUE 02-11 Intravenou [...] :00 dose, On Medi porfirio mg [facility] 02/11/22 at 0045, JOE acetaminoph 2021- No 975mg 975 mg, U nivers en 02-11 Oral, ity of (TYLENOL) 05:15: 04:19 ONCE, 1 [place] tablet 975 00 :00 dose, On Medic al mg [facility] 02/11/22 at 0015, JOE emtricitabi 0 Yes [id number] Take one Univers ne-tenofovi 9-12 po daily ity of r alafen 00:00: [place] (DESCOVY) 00 Medical tablet Branch emtricitabi 0 Yes [id number] Take one Univers ne-tenofovi 9-12 po daily ity of r alafen 00:00: [place] (DESCOVY) Medical tablet Branch emtricitabi 0 Yes [id number] Take one Univers ne-tenofovi 9-12 po daily ity of r alafen 00:00: [place] (DESCOVY) 00 Medical tablet Branch emtricitabi 0 Yes [id number] Take one Univers ne-tenofovi 9-12 po daily ity of r alafen 00:00: [place] (DESCOVY) 00 Medical tablet Branch emtricitabi Yes [id number] Take one Univers ne-tenofovi 9-12 po daily ity of r alafen 00:00: [place] (DESCOVY) 00 Medical tablet Branch emtricita Yes [id number] Take one Univers ne-tenofovi 9-12 po daily ity of r alafen 00:00: [place] (DESCOVY) 00 Medical tablet Branch emtricita Yes [id number] Take one Univers ne-tenofovi 9-12 po daily ity of r alafen 00:00: [place] (DESCOVY) 00 Medical tablet Branch emtricita Yes [id number] Take one Univers ne-tenofovi 9-12 po daily ity of r alafen 00:00: [place] (DESCOVY) 00 Medical tablet Branch emtricita Yes [id number] Take one Univers ne-tenofovi 9-12 po daily ity of r alafen 00:00: [place] (DESCOVY) 00 Medical tablet Branch [facility] [id number] Take one Univers ne-tenofovi 9-12 po daily ity of r alafen 00:00: [place] (DESCOVY) 00 Medical tablet Branch [facility] [id number] Take one Univers ne-tenofovi 9-12 po daily ity of r alafen 00:00: [place] (DESCOVY) 00 Medical tablet Branch emtricita Yes [id number] Take one Univers ne-tenofovi 9-12 po daily ity of r alafen 00:00: [place] (DESCOVY) 00 Medical tablet Branch emtricita Yes [id number] Take one Univers ne-tenofovi 9-12 po daily ity of r alafen 00:00: [place] (DESCOVY) 00 Medical tablet Branch emtricita Yes [id number] Take one Univers ne-tenofovi 9-12 po daily ity of r alafen 00:00: [place] (DESCOVY) 00 Medical tablet Branch emtricita Yes [id number] Take one Univers ne-tenofovi 9-12 po daily ity of r alafen 00:00: [place] (DESCOVY) 00 Medical tablet Branch emtricitabi 2021-0 Yes [id number] Take one Univers ne-tenofovi 9-12 po daily ity of r alafen 00:00: [place] (DESCOVY) Medical tablet Branch emtricitabi 2021-0 Yes [id number] Take one Univers ne-tenofovi 9-12 po daily ity of r alafen 00:00: [place] (DESCOVY) Medical tablet Branch naproxen 2021-0 Yes [id number] 500mg Take 1 U nivers (NAPROSYN) 7-24 tablet by ity of 500 mg 00:00: mouth in [place] tablet 00 the Medical morning Branch and 1 tablet in the evening. Take with meals. methocarbam 2021-0 Yes [id number] 500mg Take 1 Univers oL 500 mg 7-24 tablet by ity o f tablet 00:00: mouth 4 [place] [address] ([facility]) [facility] times [place] daily. naproxen 2021-0 Yes [id number] 500mg Take 1 U nivers (NAPROSYN) 7-24 tablet by ity of 500 mg 00:00: mouth in [place] tablet 00 the Medical morning Branch and 1 tablet in the evening. Take with meals. methocarbam 2021-0 Yes [id number] 500mg Take 1 Univers oL 500 mg 7-24 tablet by ity o f tablet 00:00: mouth 4 [place] ([facility]) [facility] times [place] daily. naproxen 2021-0 Yes [id number] 500mg Take 1 U nivers (NAPROSYN) 7-24 tablet by ity of 500 mg 00:00: mouth in [place] tablet 00 the Medical morning Branch and 1 tablet in the evening. Take with meals. methocarbam 2021-0 Yes [id number] 500mg Take 1 Univers oL 500 mg 7-24 tablet by ity o f tablet 00:00: mouth 4 [place] ([facility]) [facility] times [place] daily. naproxen 2021-0 2022- No [id number] 500mg Take 1 Univers (NAPROSYN) 7-24 10-14 tablet by ity of 500 mg 00:00: 00:00 mouth in [place] tablet 00 :00 the Medical morning Branch and 1 tablet in the evening. Take with meals. methocarbam 2021-0 2022- No [id number] 500mg Take 1 [facility] oL 500 mg 7-24 10-14 tablet by ity of tablet 00:00: 00:00 mouth 4 [place] 00 :00 (four) Medical times Branch daily. naproxen 2021- No [id number] 500mg Take 1 [facility] (NAPROSYN) 12-13 tablet by ity of 500 mg 00:00: 00:00 mouth in [place] tablet 00 :00 the Medical morning Branch and 1 tablet in the evening. Take with meals. methocarbam 2021- No [id number] 500mg Take 1 [facility] oL 500 mg [...] ty of mg tablet 09:11: 00:00 (two) [place] 35 :00 times Medical daily. Branch traZODONE 2021- No Take by [facility] ers (DESYREL) 11-20 mouth at ity o f 10 mg/mL 09:10: 00:00 [place]time. [place] oral 28 :00 Medical suspension Branch hydralAZINE Yes 25mg Take 25 mg Univers (APRESOLINE 11-20 by mouth ity of ) 25 mg 08:47: daily. [place] tablet 47 Medical Branch cephALEXin 2021- No [id number] 500mg Take 1 Univers (KEFLEX) 10-24 capsule [...] Indication s: acute pain buPROPion 0 Yes [id number] 150mg Take 1 U nivers XL 4-12 tablet by ity of (WELLBUTRIN 00:00: mouth [place] XL) 150 mg 00 daily. Medical 24 hr Branch tablet busPIRone 2021-0 Yes [id number] 30mg Take 1 Un matt 30 mg 4-12 tablet by ity of tablet 00:00: mouth 2 [place] 00 (two) Medical times Branch daily. SERTraline 2021-0 Yes [id number] 200mg Take 2 [facility] 100 mg 4-12 tablets by ity of tablet 00:00: mouth [place] 00 daily. Medical Branch buPROPion 0 Yes [id number] 150mg Take 1 U nivers XL 4-12 tablet by ity of (WELLBUTRIN 00:00: mouth [place] XL) 150 mg 00 daily. Medical 24 hr Branch tablet busPIRone 2021-0 Yes [id number] 30mg Take 1 Un matt 30 mg 4-12 tablet by ity of tablet 00:00: mouth 2 [place] 00 (two) Medical times Branch daily. SERTraline 2021-0 Yes [id number] 200mg Take 2 [facility] 100 mg 4-12 tablets by ity of tablet 00:00: mouth [place] 00 daily. Medical Branch buPROPion 2021-0 Yes [id number] 150mg Take 1 U nivers XL 4-12 tablet by ity of (WELLBUTRIN 00:00: mouth [place] XL) 150 mg 00 daily. Medical 24 hr Branch tablet busPIRone 2021-0 Yes [id number] 30mg Take 1 Un matt 30 mg 4-12 tablet by ity of tablet 00:00: mouth 2 [place] 00 (two) Medical times Branch daily. SERTraline 2021-0 Yes [id number] 200mg Take 2 [facility] 100 mg 4-12 tablets by ity of tablet 00:00: mouth [place] 00 daily. Medical Branch buPROPion 2021-0 Yes [id number] 150mg Take 1 U nivers XL 4-12 tablet by ity of (WELLBUTRIN 00:00: mouth [place] XL) 150 mg 00 daily. Medical 24 hr Branch tablet busPIRone 2021-0 Yes [id number] 30mg Take 1 Un matt 30 mg 4-12 tablet by ity of tablet 00:00: mouth 2 [place] 00 (two) Medical times Branch daily. SERTraline 0 Yes [id number] 200mg Take 2 [facility] 100 mg 4-12 tablets by ity of tablet 00:00: mouth [place] 00 daily. Medical Branch buPROPion 0 Yes [id number] 150mg Take 1 U nivers XL 4-12 tablet by ity of (WELLBUTRIN 00:00: mouth [place] XL) 150 mg 00 daily. Medical 24 hr Branch tablet busPIRone 2021-0 Yes [id number] 30mg Take 1 Un matt 30 mg 4-12 tablet by ity of tablet 00:00: mouth 2 (two) Medical times Branch daily. SERTraline 0 Yes [id number] 200mg Take 2 [facility] 100 mg 4-12 tablets by ity of tablet 00:00: mouth [place] 00 daily. Medical Branch buPROPion 0 Yes [id number] 150mg Take 1 U nivers XL 4-12 tablet by ity of (WELLBUTRIN 00:00: mouth [place] XL) 150 mg 00 daily. Medical 24 hr Branch tablet busPIRone 2021-0 Yes [id number] 30mg Take 1 Un matt 30 mg 4-12 tablet by ity of tablet 00:00: mouth 2 00 (two) Medical times Branch daily. SERTraline 2021-0 Yes [id number] 200mg Take 2 [facility] 100 mg 4-12 tablets by ity of tablet 00:00: mouth [place] 00 daily. Medical Branch buPROPion 2021-0 Yes [id number] 150mg Take 1 U nivers XL 4-12 tablet by ity of (WELLBUTRIN 00:00: mouth [place] XL) 150 mg 00 daily. Medical 24 hr Branch tablet busPIRone 2021-0 Yes [id number] 30mg Take 1 Un matt 30 mg 4-12 tablet by ity of tablet 00:00: mouth 2 00 (two) Medical times Branch daily. SERTraline 2021-0 Yes [id number] 200mg Take 2 [facility] 100 mg 4-12 tablets by ity of tablet 00:00: mouth [place] 00 daily. Medical Branch buPROPion 2021-0 Yes [id number] 150mg Take 1 U nivers XL 4-12 tablet by ity of (WELLBUTRIN 00:00: mouth [place] XL) 150 mg 00 daily. Medical 24 hr Branch tablet busPIRone 2021-0 Yes [id number] 30mg Take 1 Un matt 30 mg 4-12 tablet by ity of tablet 00:00: mouth 2 [place] 00 (two) Medical times Branch daily. SERTraline 2021-0 Yes [id number] 200mg Take 2 [facility] 100 mg 4-12 tablets by ity of tablet 00:00: mouth [place] 00 daily. Medical Branch buPROPion 2021-0 Yes [id number] 150mg Take 1 U nivers XL 4-12 tablet by ity of (WELLBUTRIN 00:00: mouth [place] XL) 150 mg 00 daily. Medical 24 hr Branch tablet busPIRone 2021-0 Yes [id number] 30mg Take 1 Un matt 30 mg 4-12 tablet by ity of tablet 00:00: mouth 2 [place] (two) Medical times Branch daily. SERTraline 2021-0 Yes [id number] 200mg Take 2 [facility] 100 mg 4-12 tablets by ity of tablet 00:00: mouth [place] 00 daily. Medical Branch buPROPion 2021-0 Yes [id number] 150mg Take 1 U nivers XL 4-12 tablet by ity of (WELLBUTRIN 00:00: mouth [place] XL) 150 mg 00 daily. Medical 24 hr Branch tablet busPIRone 2021-0 Yes [id number] 30mg Take 1 Un matt 30 mg 4-12 tablet by ity of tablet 00:00: mouth 2 [place] 00 (two) Medical times Branch daily. SERTraline 2021-0 Yes [id number] 200mg Take 2 [facility] 100 mg 4-12 tablets by ity of tablet 00:00: mouth [place] 00 daily. Medical Branch buPROPion 2021-0 Yes [id number] 150mg Take 1 U nivers XL 4-12 tablet by ity of (WELLBUTRIN 00:00: mouth [place] XL) 150 mg 00 daily. Medical 24 hr Branch tablet busPIRone 2021-0 Yes [id number] 30mg Take 1 Un matt 30 mg 4-12 tablet by ity of tablet 00:00: mouth 2 [place] 00 (two) Medical times Branch daily. SERTraline 2021-0 Yes [id number] 200mg Take 2 [facility] 100 mg 4-12 tablets by ity of tablet 00:00: mouth [place] 00 daily. Medical Branch buPROPion 2021-0 Yes [id number] 150mg Take 1 U nivers XL 4-12 tablet by ity of (WELLBUTRIN 00:00: mouth [place] XL) 150 mg 00 daily. Medical 24 hr Branch tablet busPIRone 2021-0 Yes [id number] 30mg Take 1 Un matt 30 mg 4-12 tablet by ity of tablet 00:00: mouth 2 [place] 00 (two) Medical times Branch daily. SERTraline 2021-0 Yes [id number] 200mg Take 2 [facility] 100 mg 4-12 tablets by ity of tablet 00:00: mouth [place] 00 daily. Medical Branch buPROPion 2021-0 Yes [id number] 150mg Take 1 U nivers XL 4-12 tablet by ity of (WELLBUTRIN 00:00: mouth [place] XL) 150 mg 00 daily. Medical 24 hr Branch tablet busPIRone 2021-0 Yes [id number] 30mg Take 1 Un matt 30 mg 4-12 tablet by ity of tablet 00:00: mouth 2 00 (two) Medical times Branch daily. SERTraline 2021-0 Yes [id number] 200mg Take 2 [facility] 100 mg 4-12 tablets by ity of tablet 00:00: mouth [place] 00 daily. Medical Branch buPROPion 2021-0 Yes [id number] 150mg Take 1 U nivers XL 4-12 tablet by ity of (WELLBUTRIN 00:00: mouth [place] XL) 150 mg 00 daily. Medical 24 hr Branch tablet busPIRone 2021-0 Yes [id number] 30mg Take 1 Un matt 30 mg 4-12 tablet by ity of tablet 00:00: mouth 2 [place] 00 (two) Medical times Branch daily. SERTraline 2021-0 Yes [id number] 200mg Take 2 [facility] 100 mg 4-12 tablets by ity of tablet 00:00: mouth [place] 00 daily. Medical Branch buPROPion 2021-0 Yes [id number] 150mg Take 1 U nivers XL 4-12 tablet by ity of (WELLBUTRIN 00:00: mouth [place] XL) 150 mg 00 daily. Medical 24 hr Branch tablet busPIRone 2021-0 Yes [id number] 30mg Take 1 Un matt 30 mg 4-12 tablet by ity of tablet 00:00: mouth 2 [place] 00 (two) Medical times Branch daily. SERTraline 2021-0 Yes [id number] 200mg Take 2 [facility] 100 mg 4-12 tablets by ity of tablet 00:00: mouth [place] 00 daily. Medical Branch buPROPion 2021-0 Yes [id number] 150mg Take 1 U nivers XL 4-12 tablet by ity of (WELLBUTRIN 00:00: mouth [place] XL) 150 mg 00 daily. Medical 24 hr Branch tablet busPIRone 2021-0 Yes [id number] 30mg Take 1 Un matt 30 mg 4-12 tablet by ity of tablet 00:00: mouth 2 [place] 00 (two) Medical times Branch daily. SERTraline 0 Yes [id number] 200mg Take 2 [facility] 100 mg 4-12 tablets by ity of tablet 00:00: mouth [place] 00 daily. Medical Branch buPROPion 2021-0 Yes [id number] 150mg Take 1 U nivers XL 4-12 tablet by ity of (WELLBUTRIN 00:00: mouth [place] XL) 150 mg 00 daily. Medical 24 hr Branch tablet busPIRone 2021-0 Yes [id number] 30mg Take 1 Un matt 30 mg 4-12 tablet by ity of tablet 00:00: mouth 2 [place] 00 (two) Medical times Branch daily. SERTraline 2021-0 Yes [id number] 200mg Take 2 [facility] 100 mg 4-12 tablets by ity of tablet 00:00: mouth [place] 00 daily. Medical Branch buPROPion 2021-0 Yes [id number] 150mg Take 1 U nivers XL 4-12 tablet by ity of (WELLBUTRIN 00:00: mouth [place] XL) 150 mg 00 daily. Medical 24 hr Branch tablet busPIRone 2021-0 Yes [id number] 30mg Take 1 Un matt 30 mg 4-12 tablet by ity of tablet 00:00: mouth 2 [place] 00 (two) Medical times Branch daily. SERTraline 2021-0 Yes [id number] 200mg Take 2 [facility] 100 mg 4-12 tablets by ity of tablet 00:00: mouth [place] 00 daily. Medical Branch raltegravir 2022-0 Yes [id number] 400mg Take 1 Univers (ISENTRESS) 3-28 tablet by ity of 400 mg 00:00: mouth 2 [place] tablet 00 (two) Medical times Branch daily. raltegravir 2-0 Yes [id number] 400mg Take 1 Univers (ISENTRESS) 3-28 tablet by ity of 400 mg 00:00: mouth 2 [place] tablet 00 (two) Medical times Branch daily. raltegravir 2-0 Yes [id number] 400mg Take 1 Univers (ISENTRESS) 3-28 tablet by ity of 400 mg 00:00: mouth 2 [place] tablet 00 (two) Medical times Branch daily. raltegravir 2021-0 Yes [id number] 400mg Take 1 Univers (ISENTRESS) 3-28 tablet by ity of 400 mg 00:00: mouth 2 [place] tablet 00 (two) Medical times Branch daily. raltegravir 2021-0 Yes [id number] 400mg Take 1 Univers (ISENTRESS) 3-28 tablet by ity of 400 mg 00:00: mouth 2 [place] tablet 00 (two) Medical times Branch daily. raltegravir 2021-0 Yes [id number] 400mg Take 1 Univers (ISENTRESS) 3-28 tablet by ity of 400 mg 00:00: mouth 2 [place] tablet 00 (two) Medical times Branch daily. raltegravir 2021-0 Yes [id number] 400mg Take 1 Univers (ISENTRESS) 3-28 tablet by ity of 400 mg 00:00: mouth 2 [place] tablet 00 (two) Medical times Branch daily. raltegravir 2-0 Yes [id number] 400mg Take 1 Univers (ISENTRESS) 3-28 tablet by ity of 400 mg 00:00: mouth 2 [place] tablet 00 (two) Medical times Branch daily. raltegravir 2-0 Yes [id number] 400mg Take 1 Univers (ISENTRESS) 3-28 tablet by ity of 400 mg 00:00: mouth 2 [place] tablet 00 (two) Medical times Branch daily. raltegravir 2-0 Yes [id number] 400mg Take 1 Univers (ISENTRESS) 3-28 tablet by ity of 400 mg 00:00: mouth 2 [place] tablet 00 (two) Medical times Branch daily. raltegravir 2-0 Yes [id number] 400mg Take 1 Univers (ISENTRESS) 3-28 tablet by ity of 400 mg 00:00: mouth 2 [place] tablet 00 (two) Medical times Branch daily. raltegravir 2021-0 Yes [id number] 400mg Take 1 Univers (ISENTRESS) 3-28 tablet by ity of 400 mg 00:00: mouth 2 [place] tablet 00 (two) Medical times Branch daily. raltegravir 2021-0 Yes [id number] 400mg Take 1 Univers (ISENTRESS) 3-28 tablet by ity of 400 mg 00:00: mouth 2 [place] tablet 00 (two) Medical times Branch daily. raltegravir 2021-0 Yes [id number] 400mg Take 1 Univers (ISENTRESS) 3-28 tablet by ity of 400 mg 00:00: mouth 2 [place] tablet 00 (two) Medical times Branch daily. raltegravir 2021-0 Yes [id number] 400mg Take 1 Univers (ISENTRESS) 3-28 tablet by ity of 400 mg 00:00: mouth 2 [place] tablet 00 (two) Medical times Branch daily. raltegravir 2021-0 Yes [id number] 400mg Take 1 Univers (ISENTRESS) 3-28 tablet by ity of 400 mg 00:00: mouth 2 [place] tablet 00 (two) Medical times Branch daily. raltegravir 2021-0 Yes [id number] 400mg Take 1 [facility] (ISENTRESS) 3-28 tablet by ity of 400 mg 00:00: mouth 2 [place] tablet 00 (two) Medical times Branch daily. raltegravir 2021-0 Yes [id number] 400mg Take 1 Univers (ISENTRESS) 3-28 tablet by ity of 400 mg 00:00: mouth 2 [place] tablet 00 (two) Medical times Branch daily. LORazepam 1 2021-0 2021- No [id number] 1mg Take 1 Univers mg tablet 3-21 [...] times a tablet day. emtricitabi 202- No [id number] Take one [facility] ne-tenofovi -20 09-12 po daily ity of r alafen 00:00: 00:00 [place] (DESCOVY) 00 :00 Medical tablet Branch metoprolol Yes [id number] Take 1 [place] tartrate 7-26 tablet Health (Lopressor) 00:00: (100 mg 100 MG 00 total) by tablet mouth 2 (two) times a day AND 0.5 tablets (50 mg total) every night. metoprolol Yes [id number] Take 1 [place] tartrate 7-26 tablet Health [...] (affected area in groin) hydrALAZINE Yes 50mg Q.[id number] Take 50 mg [facility] (APRESOLINE 7-19 [id number] mouth [facility] ) 50 MG [...] (affected area in groin) hydrALAZINE Yes 50mg Q.[id number] Take 50 mg [facility] (APRESOLINE 7-19 [id number] [facility] mouth [facility] ) 50 MG [...] (affected area in groin) hydrALAZINE Yes 50mg Q.[id number] Take 50 mg [facility] (APRESOLINE 7-19 [id number] mouth [facility] ) 50 MG [...] area in groin) hydrALAZINE 0 Yes 50mg Q.[id number] Take 50 mg [facility] (APRESOLINE 7-19 [id number] [facility] mouth [facility] ) 50 MG [...] area in groin) hydrALAZINE 0 Yes 50mg Q.[id number] Take 50 mg [facility] (APRESOLINE 7-19 [id number] [facility] mouth [facility] ) 50 MG [...] (affected area in groin) hydrALAZINE Yes 50mg Q.[id number] Take 50 mg [facility] (APRESOLINE 7-19 [id number] mouth [facility] ) 50 MG [...] (affected area in groin) hydrALAZINE Yes 50mg Q.[id number] Take 50 mg [facility] (APRESOLINE 7-19 [id number] mouth [facility] ) 50 MG [...] area in groin) hydrALAZINE 0 Yes 50mg Q.[id number] Take 50 mg [facility] (APRESOLINE 7-19 [id number] [facility] mouth [facility] ) 50 MG [...] (affected area in groin) hydrALAZINE Yes 50mg Q.[id number] Take 50 mg [facility] (APRESOLINE 7-19 [id number] mouth [facility] ) 50 MG [...] (affected area in groin) hydrALAZINE Yes 50mg Q.[id number] Take 50 mg [facility] (APRESOLINE 7-19 [id number] [address] mouth [facility] ) 50 MG [...] area in groin) hydrALAZINE 0 Yes 50mg Q.[id number] Take 50 mg [facility] (APRESOLINE 7-19 [id number] mouth [facility] ) 50 MG [...] (affected area in groin) hydrALAZINE Yes 50mg Q.[id number] Take 50 mg [facility] (APRESOLINE 7-19 [id number] [address] mouth [facility] ) 50 MG [...] (affected area in groin) hydrALAZINE Yes 50mg Q.[id number] Take 50 mg [facility] (APRESOLINE 7-19 [id number] mouth [facility] [address] ) 50 MG [...] (affected area in groin) hydrALAZINE Yes 50mg Q.[id number] Take 50 mg [facility] (APRESOLINE 7-19 [id number] mouth [facility] [address] ) 50 MG [...] area in groin) hydrALAZINE 0 Yes 50mg Q.[id number] Take 50 mg [facility] (APRESOLINE 7-[id number] mouth [facility] [address] ) 50 MG [...] (affected area in groin) hydrALAZINE Yes 50mg Q.[id number] Take 50 mg [facility] (APRESOLINE 7-19 [id number] [address] mouth [facility] ) 50 MG [...] area in groin) hydrALAZINE 0 Yes 50mg Q.[id number] Take 50 mg [facility] (APRESOLINE 7-19 [id number] mouth [facility] ) 50 MG [...] area in groin) hydrALAZINE 0 Yes 50mg Q.[id number] Take 50 mg [facility] (APRESOLINE 7-[id number] mouth [facility] [address] ) 50 MG [...] (affected area in groin) hydrALAZINE Yes 50mg Q.[id number] Take 50 mg [facility] (APRESOLINE 7-[id number] mouth [facility] [address] ) 50 MG [...] area in groin) hydrALAZINE 0 Yes 50mg Q.[id number] Take 50 mg [facility] (APRESOLINE 7-19 [id number] mouth [facility] ) 50 MG [...] area in groin) hydrALAZINE 2020-0 Yes 50mg Q.[id number] Take 50 mg [facility] (APRESOLINE 7-[id number] mouth [facility] [address] ) 50 MG [...] area in groin) hydrALAZINE 0 Yes 50mg Q.[id number] Take 50 mg [facility] (APRESOLINE 7-[id number] mouth [address] ) 50 MG [...] (affected area in groin) hydrALAZINE Yes 50mg Q.[id number] Take 50 mg [facility] (APRESOLINE 7-[id number] mouth [facility] [address] ) 50 MG [...] area in groin) hydrALAZINE 0 Yes 50mg Q.[id number] Take 50 mg [facility] (APRESOLINE 7-[id number] mouth [facility] ) 50 MG [...] (affected area in groin) hydrALAZINE Yes 50mg Q.[id number] Take 50 mg [facility] (APRESOLINE 7-[id number] mouth [address] ) 50 MG [...] (affected area in groin) hydrALAZINE Yes 50mg Q.[id number] Take 50 mg [facility] (APRESOLINE 7-[id number] mouth [address] ) 50 MG [...] area in groin) hydrALAZINE 0 Yes 50mg Q.[id number] Take 50 mg [facility] (APRESOLINE 7-[id number] mouth [address] ) 50 MG [...] (affected area in groin) hydrALAZINE Yes 50mg Q.[id number] Take 50 mg [facility] (APRESOLINE 7-[id number] mouth [facility] [address] ) 50 MG [...] (affected area in groin) hydrALAZINE Yes 50mg Q.[id number] Take 50 mg [facility] (APRESOLINE 7-[id number] mouth [address] ) 50 MG [...] area in groin) hydrALAZINE 0 Yes 50mg Q.[id number] Take 50 mg [facility] (APRESOLINE 7-[id number] mouth [address] ) 50 MG [...] area in groin) hydrALAZINE 0 Yes 50mg Q.[id number] Take 50 mg [facility] (APRESOLINE 7-[id number] mouth [address] ) 50 MG [...] (affected area in groin) hydrALAZINE Yes 50mg Q.[id number] Take 50 mg [facility] (APRESOLINE 7-[id number] mouth [address] ) 50 MG [...] [facility] tablet 25 l nystatin-tr 2021-0 Yes [id number] Apply to [facility] iamcinolone 7-06 area(s) 3 ity of cream 00:00: (three) [place] 00 times Medical daily. Branch nystatin-tr 2021-0 Yes [id number] Apply to [facility] iamcinolone 7-06 area(s) 3 ity of cream 00:00: (three) [place] 00 times Medical daily. Branch nystatin-tr 2021-0 Yes [id number] Apply to [facility] iamcinolone 7-06 area(s) 3 ity of cream 00:00: (three) [place] 00 times Medical daily. Branch nystatin-tr 2021-0 Yes [id number] Apply to [facility] iamcinolone 7-06 area(s) 3 ity of cream 00:00: (three) [place] 00 times Medical daily. Branch nystatin-tr 2021-0 Yes [id number] Apply to [facility] iamcinolone 7-06 area(s) 3 ity of cream 00:00: (three) [place] 00 times Medical daily. Branch nystatin-tr 2021-0 Yes [id number] Apply to [facility] iamcinolone 7-06 area(s) 3 ity of cream 00:00: (three) [place] 00 times Medical daily. Branch nystatin-tr 2021-0 Yes [id number] Apply to Univers iamcinolone 7-06 area(s) 3 ity of cream 00:00: (three) [place] 00 times Medical daily. Branch nystatin-tr 2021-0 Yes [id number] Apply to Univers iamcinolone 7-06 area(s) 3 ity of cream 00:00: (three) [place] 00 times Medical daily. Branch nystatin-tr 2021-0 Yes [id number] Apply to Univers iamcinolone 7-06 area(s) 3 ity of cream 00:00: (three) [place] 00 times Medical daily. Branch nystatin-tr 2021-0 Yes [id number] Apply to [facility] iamcinolone 7-06 area(s) 3 ity of cream 00:00: (three) [place] 00 times Medical daily. Branch nystatin-tr 2021-0 Yes [id number] Apply to Univers iamcinolone 7-06 area(s) 3 ity of cream 00:00: (three) [place] 00 times Medical daily. Branch nystatin-tr 2021-0 Yes [id number] Apply to [facility] iamcinolone 7-06 area(s) 3 ity of cream 00:00: (three) [place] 00 times Medical daily. Branch nystatin-tr 2021-0 Yes [id number] Apply to [facility] iamcinolone 7-06 area(s) 3 ity of cream 00:00: (three) [place] 00 times Medical daily. Branch nystatin-tr 2021-0 Yes [id number] Apply to Univers iamcinolone 7-06 area(s) 3 ity of cream 00:00: (three) [place] 00 times Medical daily. Branch nystatin-tr 2021-0 Yes [id number] Apply to Univers iamcinolone 7-06 area(s) 3 ity of cream 00:00: (three) [place] 00 times Medical daily. Branch nystatin-tr 2021-0 Yes [id number] Apply to [facility] iamcinolone 7-06 area(s) 3 ity of cream 00:00: (three) [place] 00 times Medical daily. Branch nystatin-tr 2021-0 Yes [id number] Apply to [facility] iamcinolone 7-06 area(s) 3 ity of cream 00:00: (three) [place] 00 times Medical daily. Branch nystatin-tr 2021-0 Yes [id number] Apply to [facility] iamcinolone 7-06 area(s) 3 ity of cream 00:00: (three) [place] 00 times Medical daily. Branch budesonide- 2021-0 2021- No 1{puff} QD Inhale 1 [facility] formoteroL 625 06-[address] (SYMBICORT) 14:37: 00:00 morning. H ospita 160-4.5 02 :00 l mcg/actuati on inhaler hydrALAZINE 2020-0 Yes [id number] 50mg [id number] Take 1 [place] (Apresoline 6- [id number] tablet (50 Health ) 50 MG 00:00: 3D mg total) tablet 00 by mouth 3 (three) times a day. hydrALAZINE 0 Yes [id number] 50mg Q.[id number] Take 1 [place] (Apresoline 6-11 [id number] tablet (50 Health ) 50 MG 00:00: [...] % 00:00: ointment 00 nystatin 2020- No [id number] Q.25D Take 5 mL Method[facility] (MYCOSTATIN 10-06 [...] e 4-10 Tablet l 14:00: should not [place] 00 be chewed or crushed. (Same as: [...] ia 4-10 (Same as: l 14:00: Cordarone) [place] 00 Amlodipine No Notes: Memor ia 4-10 (Same as: l 14:00: Norvasc) [place] emtricitabi No Notes: Caesar lisa ne 200 MG / 4-10 (Same as: l tenofovir 14:00: Descovy) Herm ariel alafenamide 00 Non-formul 25 MG Oral nancy Tablet [Descovy] Sertraline No Notes: Memor ia 4-10 (Same as: l 14:00: Zoloft) [place] pantoprazol No Notes: Caesar lisa e 4-10 Tablet l 14:00: should not [place] 00 be chewed or crushed. (Same as: Protonix) Amiodarone No Notes: Memor ia 4-10 (Same as: l 14:00: Cordarone) [place] 00 Amlodipine No Notes: Memor ia 4-10 (Same as: l 14:00: Norvasc) [place] emtricitabi No Notes: Caesar lisa ne 200 MG / 4-10 (Same as: l tenofovir 14:00: Descovy) Herm ariel alafenamide 00 Non-formul 25 MG Oral nancy Tablet [Descovy] Sertraline No Notes: Memor ia 4-10 (Same as: l 14:00: Zoloft) [place] pantoprazol No Notes: Caesar lisa e 4-10 Tablet l 14:00: should not [place] 00 be chewed or crushed. (Same as: [...] e 4-10 Tablet l 14:00: should not [place] 00 be chewed or crushed. (Same as: Protonix) Amiodarone No Notes: Memor ia 4-10 (Same as: l 14:00: Cordarone) [place] Amlodipine No Notes: Memor ia 4-10 (Same as: l 14:00: Norvasc) [place] emtricitabi No Notes: Caesar lisa ne 200 MG / 4-10 (Same as: l tenofovir 14:00: Descovy) Herm ariel alafenamide 00 Non-formul 25 MG Oral nancy Tablet [Descovy] Sertraline No Notes: Memor ia 4-10 (Same as: l 14:00: Zoloft) [place] pantoprazol No Notes: Caesar lisa e 4-10 Tablet l 14:00: should not [place] 00 be chewed or crushed. (Same as: Protonix) Amiodarone No Notes: Memor ia 4-10 (Same as: l 14:00: Cordarone) [place] Sucralfate No Notes: May M emoria 4-10 [...] 0.9% 4-10 (Same as: l 02:00: BD [place] 00 Posiflush) Eliquis No Notes: Memoria 4-10 Same as: l 02:00: Eliquis [place] Hydralazine No Notes: Caesar lisa Hydrochlori 4-10 (Same as: l de 50 MG 02:00: Apresoline Her mitchell Oral Tablet 00 ) May interfere w/enteral feedings Take With Food Sucralfate No Notes: May M emoria 4-10 interfere l 02:00: w/enteral [place] 00 feeds - Take 1 hr before [...] M emoria 4-10 interfere l 02:00: w/enteral [place] 00 feeds - Take 1 hr before or 2 hr after antacids, dairy pdt, meals & minerals - On empty stomach. For patients unable to swallow tablet, dissolve in 10mL - 30mL of water or juice and stir before giving. (Same As: Carafate) Saline No Notes: Memoria Flush 0.9% 4-10 (Same as: l 02:00: BD [place] 00 Posiflush) Eliquis No Notes: Memoria 4-10 [...] 0.9% 4-10 (Same as: l 02:00: BD [place] 00 Posiflush) Eliquis No Notes: Memoria 4-10 Same as: l 02:00: Eliquis [place] 00 Hydralazine No Notes: Caesar lisa Hydrochlori 4-10 (Same as: l de 50 MG 02:00: Apresoline Her mitchell Oral Tablet 00 ) May interfere w/enteral feedings Take With Food Sucralfate No Notes: May M emoria 4-10 interfere l 02:00: w/enteral [place] 00 feeds - Take 1 hr before or 2 hr after antacids, dairy pdt, meals & minerals - On empty stomach. For patients unable to swallow tablet, dissolve in 10mL - 30mL of water or juice and stir before giving. (Same As: Carafate) Saline No Notes: Memoria Flush 0.9% 4-10 (Same as: l 02:00: BD [place] 00 Posiflush) Eliquis No Notes: Memoria 4-10 Same as: l 02:00: Eliquis [place] Hydralazine No Notes: Caesar lisa Hydrochlori 4-10 (Same as: l de 50 MG 02:00: Apresoline Her mitchell Oral Tablet 00 ) May interfere w/enteral feedings Take With Food Sucralfate No Notes: May M emoria 4-10 interfere l 02:00: w/enteral [place] 00 feeds - Take 1 hr before or 2 hr after antacids, dairy pdt, meals & minerals - On empty stomach. For patients unable to swallow tablet, dissolve in 10mL - 30mL of water or juice and stir before giving. (Same As: Carafate) Saline No Notes: Memoria Flush 0.9% 4-10 (Same as: l 02:00: BD [place] Posiflush) Eliquis No Notes: Memoria 4-10 Same as: l 02:00: Eliquis [place] 00 Hydralazine No Notes: Caesar lisa Hydrochlori [...] 0.9% 4-10 (Same as: l 02:00: BD [place] Posiflush) Eliquis No Notes: Memoria 4-10 Same [...] not exceed l #3 00:12: 4gm/day of [place] acetaminop hen. (Same as: Tylenol with Codeine # 3) acetaminoph No Notes: Do M emoria en-codeine 4-10 not exceed l #3 00:12: 4gm/day of [place] acetaminop hen. (Same as: Tylenol with Codeine # 3) acetaminoph No Notes: Do M emoria en-codeine 4-10 not exceed l #3 00:12: 4gm/day of [place] acetaminop hen. (Same as: Tylenol with Codeine # 3) acetaminoph No Notes: Do M emoria en-codeine 4-10 not exceed l #3 00:12: 4gm/day of [place] acetaminop hen. (Same as: Tylenol with Codeine [...] oria 4- tab, l 22:00: Route: PO, [place] 00 Drug form: TAB, BID, Dosing Weight 97.273, kg, Start date: 08/29/20 17:00:00 CDT, Duration: 30 day, Stop date: 09/28/20 9:00:00 CDT metoprolol 2021-0 No 100 mg, 1 Me moria tartrate 4-09 tab, l 22:00: Route: PO, [place] 00 Drug form: TAB, BID, Dosing Weight [...] tartrate 4-09 tab, l 22:00: Route: PO, [place] 00 Drug form: TAB, BID, Dosing Weight [...] oria 4-09 tab, l 22:00: Route: PO, [place] 00 Drug form: TAB, BID, Dosing Weight [...] Notes: Memoria 4-09 (Same l 17:07: as:MORPhin [place] 00 e Sulfate) Morphine No Notes: Memoria 4-09 (Same l 17:07: as:MORPhin [place] 00 e Sulfate) Morphine 2021-0 No Notes: Memoria 4- (Same l 17:07: as:MORPhin [place] 00 e Sulfate) Morphine 2020-0 No Notes: Memoria - (Same l 17:07: as:MORPhin [place] 00 e Sulfate) buPROPion 1-0 No 150 [...] 30 tab, 0 coated Refill(s), tablet Pharmacy: [facility] 149, 162.56, cm, 08/29/20 5:30:00 CDT, Height, 97.273, kg, 08/29/20 5:30:00 CDT, Weight pantoprazol 2020-0 Yes 40 mg = 1 M emoria e 40 mg 4-09 tab, PO, l oral 15:27: Daily, # [place] enteric 00 30 tab, 0 coated Refill(s), tablet Pharmacy: [facility] 149, 162.56, cm, 08/29/20 5:30:00 CDT, Height, 97.273, kg, 08/29/20 5:30:00 CDT, Weight pantoprazol 2020-0 Yes 40 mg = 1 M emoria e 40 mg 4-09 tab, PO, l oral 15:27: Daily, # [place] enteric 00 30 tab, 0 coated Refill(s), tablet Pharmacy: [facility] 149, 162.56, cm, 08/29/20 5:30:00 CDT, Height, 97.273, kg, 08/29/20 5:30:00 CDT, Weight pantoprazol 2020-0 Yes 40 mg = 1 M emoria e 40 mg 4-09 tab, PO, l oral 15:27: Daily, # [place] enteric 00 30 tab, 0 coated Refill(s), tablet Pharmacy: [facility] 149, 162.56, cm, 08/29/20 5:30:00 CDT, Height, 97.273, kg, 08/29/20 5:30:00 CDT, Weight pantoprazol 2020-0 Yes 40 mg = 1 M emoria e 40 mg 4-09 tab, PO, l oral 15:27: Daily, # [place] enteric 00 30 tab, 0 coated Refill(s), tablet Pharmacy: [facility] 149, 162.56, cm, 08/29/20 5:30:00 CDT, Height, 97.273, kg, 08/29/20 5:30:00 CDT, Weight pantoprazol 2020-0 Yes 40 mg = 1 M emoria e 40 mg 4-09 tab, PO, l oral 15:27: Daily, # [place] enteric 00 30 tab, 0 coated Refill(s), tablet Pharmacy: [facility] 149, 162.56, cm, 08/29/20 5:30:00 CDT, Height, 97.273, kg, 08/29/20 5:30:00 CDT, Weight pantoprazol 2020-0 Yes 40 mg = 1 M emoria e 40 mg 4-09 tab, PO, l oral 15:27: Daily, # [place] enteric 00 30 tab, 0 coated Refill(s), tablet Pharmacy: [facility] 149, 162.56, cm, 08/29/20 [...] Skylar nn 00 tab, 0 Refill(s), Pharmacy: [facility] 149, 162.56, cm, 08/29/20 5:30:00 CDT, Height, 97.273, kg, 08/29/20 5:30:00 CDT, Weight pantoprazol 2020-0 No 40 mg = 1 M emoria e 40 mg 4-09 tab, PO, l oral 15:26: Daily, # [place] enteric 00 30 tab, 0 coated Refill(s) tablet sucralfate 2020-0 Yes 1 gm = 1 Mem oria 1 g oral 4-09 tab, PO, l tablet 15:26: Q12H, # 28 Skylar nn 00 tab, 0 Refill(s), Pharmacy: [facility] 149, 162.56, cm, 08/29/20 [...] Skylar nn 00 tab, 0 Refill(s), Pharmacy: [facility] 149, 162.56, cm, 08/29/20 5:30:00 CDT, Height, 97.273, kg, 08/29/20 5:30:00 CDT, Weight pantoprazol 2020-0 No 40 mg = 1 M emoria e 40 mg 4-09 tab, PO, l oral 15:26: Daily, # [place] enteric 00 30 tab, 0 coated Refill(s) tablet sucralfate 2020-0 Yes 1 gm = 1 Mem oria 1 g oral 4-09 tab, PO, l tablet 15:26: Q12H, # 28 Skyl[place] nn 00 tab, 0 Refill(s), Pharmacy: [facility] 149, 162.56, cm, 08/29/20 [...] Skylar nn 00 tab, 0 Refill(s), Pharmacy: [facility] 149, 162.56, cm, 08/29/20 5:30:00 CDT, Height, 97.273, kg, 08/29/20 5:30:00 CDT, Weight pantoprazol No 40 mg = 1 M emoria e 40 mg 4-09 tab, PO, l oral 15:26: Daily, # [place] enteric 00 30 tab, 0 coated Refill(s) tablet sucralfate Yes 1 gm = 1 Mem oria 1 g oral 4-09 tab, PO, l tablet 15:26: Q12H, # 28 Skylar nn 00 tab, 0 Refill(s), Pharmacy: [facility] 149, 162.56, cm, 08/29/20 [...] Skylar nn 00 tab, 0 Refill(s), Pharmacy: [facility] 149, 162.56, cm, 08/29/20 5:30:00 CDT, Height, 97.273, kg, 08/29/20 5:30:00 CDT, Weight Saline No Notes: Memoria Flush 0.9% 4-09 (Same as: l 15:25: BD [place] 00 Posiflush) Lorazepam No Notes: Memori a 4-09 (Same as: l 15:25: Ativan) [place] 00 Saline No Notes: Memoria Flush 0.9% 4-09 (Same as: l 15:25: BD [place] 00 Posiflush) Lorazepam No Notes: Memori a 4-09 (Same as: l 15:25: Ativan) [place] 00 Saline No Notes: Memoria Flush 0.9% 4-09 (Same as: l 15:25: BD [place] 00 Posiflush) Saline No Notes: Memoria Flush 0.9% 4-09 (Same as: l 15:25: BD [place] 00 Posiflush) Lorazepam No Notes: Memori a 4-09 (Same as: l 15:25: Ativan) [place] 00 Lorazepam No Notes: Memori a 4-09 [...] Drug form: l mg + 15:00: INJ, [place] Dosing Weight 97.3, kg, Start date: 08/29/20 [...] 08-29 Route: PO, l 14:01: Drug form: [place] 00 TAB, ONCE, Dosing Weight 97.273, kg, [...] oria ne 08-29 Route: l 14:01: IVP, [place] 00 Q5Min, Dosing Weight 97.273, kg, PRN [...] Memori a 08-29 Route: l 14:01: IVP, [place] 00 Q2MIN, Dosing Weight 97.273, kg, PRN Narcotic Reversal, Start date: 08/29/20 9:01:00 CDT, Duration: 8 doses or times, Stop date: Limited # of times Ondansetron 1-0 No 4 mg, Memor ia 08-29 Route: l 14:01: IVP, ONCE, [place] 00 Dosing Weight 97.273, kg, PRN Nausea & Vomiting, Start date: 08/29/20 9:01:00 CDT Labetalol 1-0 No 10 mg, Memori a 08-29 Route: l 14:01: IVP, [place] 00 Q5Min, Dosing Weight 97.273, kg, PRN Elevated BP, Start date: 08/29/20 9:01:00 CDT, Duration: 5 doses or times, Stop date: Limited # of times Acetaminoph 1-0 No 1,000 mg, M emoria en 08-29 Route: PO, l 14:01: Drug form: [place] 00 TAB, ONCE, Dosing Weight 97.273, kg, [...] oria ne 08-29 Route: l 14:01: IVP, [place] 00 Q5Min, Dosing Weight 97.273, kg, PRN [...] ia 08-29 Route: l 14:01: IVP, ONCE, [place] 00 Dosing Weight 97.273, kg, PRN Nausea [...] 08-29 Route: PO, l 14:01: Drug form: [place] 00 TAB, ONCE, Dosing Weight 97.273, kg, [...] Memori a 08-29 Route: l 14:01: IVP, [place] 00 Q2MIN, Dosing Weight 97.273, kg, PRN [...] Memori a 08-29 Route: l 14:01: IVP, [place] 00 Q5Min, Dosing Weight 97.273, kg, PRN Elevated BP, Start date: 08/29/20 9:01:00 CDT, Duration: 5 doses or times, Stop date: Limited # of times Acetaminoph 1-0 No 1,000 mg, M emoria en 08-29 Route: PO, l 14:01: Drug form: [place] 00 TAB, ONCE, Dosing Weight 97.273, kg, [...] lisa 08-29 Route: l 14:01: IVP, PRN, [place] 00 Dosing Weight 97.273, kg, PRN Benzodiaze pine Reversal, Initial dose, Start date: 08/29/20 9:01:00 CDT, Duration: 30 day, Stop date: 09/28/20 9:00:00 CDT Naloxone 1-0 No 0.4 mg, Memori a 08-29 Route: l 14:01: IVP, [place] 00 Q2MIN, Dosing Weight 97.273, kg, PRN Narcotic Reversal, Start date: 08/29/20 9:01:00 CDT, Duration: 8 doses or times, Stop date: Limited # of times Flumazenil 2021-0 No 0.2 mg, Caesar lisa 08-29 Route: l 14:01: IVP, PRN, [place] 00 Dosing Weight 97.273, kg, PRN Benzodiaze pine Reversal, Initial dose, Start date: 08/29/20 9:01:00 CDT, Duration: 30 day, Stop date: 09/28/20 9:00:00 CDT Ondansetron 2021-0 No 4 mg, Memor ia 08-29 Route: l 14:01: IVP, ONCE, [place] 00 Dosing Weight 97.273, kg, PRN Nausea [...] ia 08-29 Route: l 14:01: IVP, ONCE, [place] Dosing Weight 97.273, kg, PRN Nausea & Vomiting, Start date: 08/29/20 9:01:00 CDT Labetalol 2021-0 No 10 mg, Memori a 08-29 Route: l 14:01: IVP, [place] 00 Q5Min, Dosing Weight 97.273, kg, PRN [...] Memori a 08-29 Route: l 14:01: IVP, [place] 00 Q5Min, Dosing Weight 97.273, kg, PRN Elevated BP, Start date: 08/29/20 9:01:00 CDT, Duration: 5 doses or times, Stop date: Limited # of times Acetaminoph 1-0 No 1,000 mg, M emoria en 08-29 Route: PO, l 14:01: Drug form: [place] 00 TAB, ONCE, Dosing Weight 97.273, kg, [...] lisa 08-29 Route: l 14:01: IVP, PRN, [place] 00 Dosing Weight 97.273, kg, PRN Benzodiaze [...] 08-29 Drug form: l 13:42: INJ, ONCE, [place] Stop date: 08/29/20 8:42:00 CDT fentaNYL 2020-0 No Route: IV, Mem oria (ANES) 08-29 Drug form: l 13:42: INJ, ONCE, [place] Stop date: 08/29/20 8:42:00 CDT fentaNYL No Route: IV, Mem oria (ANES) 08-29 Drug form: l 13:42: INJ, ONCE, [place] Stop date: 08/29/20 8:42:00 CDT norepinephr 2020-0 No Route: IV, Memoria ine (ANES) 08-29 Drug form: l 10 13:15: INJ, Start [place] microgram date: 08/29/20 8:15:00 CDT, Stop date: 08/29/20 9:15:00 CDT norepinephr 2020-0 No Route: IV, Memoria ine (ANES) 08-29 Drug form: l 10 13:15: INJ, Start [place] microgram date: 08/29/20 8:15:00 CDT, Stop date: 08/29/20 9:15:00 CDT norepinephr 2020-0 No Route: IV, Memoria ine (ANES) 08-29 Drug form: l 10 13:15: INJ, Start [place] microgram date: 08/29/20 8:15:00 CDT, Stop date: 08/29/20 9:15:00 CDT norepinephr 2020-0 No Route: IV, Memoria ine (ANES) 08-29 Drug form: l 10 13:15: INJ, Start [place] microgram 00 date: 08/29/20 8:15:00 CDT, Stop date: 08/29/20 9:15:00 CDT norepinephr 2020-0 No Route: IV, Memoria ine (ANES) 08-29 Drug form: l 10 13:15: INJ, Start [place] microgram 00 date: 08/29/20 8:15:00 CDT, Stop date: 08/29/20 9:15:00 CDT norepinephr 2020-0 No Route: IV, Memoria ine (ANES) 4- Drug form: l 10 13:15: INJ, Start [place] microgram 00 date: 08/29/20 8:15:00 CDT, Stop [...] 4-09 Total l 0.9% IV 12:30: Volume: [place] (ANES) 1000 00 1,000, mL Start date: 08/29/20 7:30:00 CDT, Stop date: 08/29/20 8:30:00 CDT Sodium 2020-0 No Route: IV, Memor ia Chloride 4-09 Total l 0.9% IV 12:30: Volume: [place] (ANES) 1000 00 1,000, mL Start date: 08/29/20 7:30:00 CDT, Stop date: 08/29/20 8:30:00 CDT Sodium 2020-0 No Route: IV, Memor ia Chloride 4-09 Total l 0.9% IV 12:30: Volume: [place] (ANES) 1000 00 1,000, mL Start date: 08/29/20 7:30:00 CDT, Stop date: 08/29/20 8:30:00 CDT Sodium 2020-0 No Route: IV, Memor ia Chloride 4-09 Total l 0.9% IV 12:30: Volume: [place] (ANES) 1000 00 1,000, mL Start date: [...] PO, l Hydrochlori 11:42: Q24H, # 30 [place] de 150 MG 00 tab, 0 Extended [...] PO, l Hydrochlori 11:42: Q24H, # 30 [place] de 150 MG 00 tab, 0 Extended Refill(s) Release Tablet 24 HR Yes 150 mg = 1 Memori a Bupropion -09 tab, PO, l Hydrochlori 11:42: Q24H, # 30 [place] de 150 MG 00 tab, 0 Extended Refill(s) Release Tablet 24 HR Yes 150 mg = 1 Memori a Bupropion 4-09 tab, PO, l Hydrochlori 11:42: Q24H, # 30 [place] de 150 MG 00 tab, 0 Extended Refill(s) Release Tablet 24 HR Yes 150 mg = 1 Memori a Bupropion -09 tab, PO, l Hydrochlori 11:42: Q24H, # 30 [place] de 150 MG 00 tab, 0 Extended Refill(s) Release Tablet apixaban Yes 5 mg, PO, Me moria MG Oral 4- Q12H, tab, l Tablet 11:41: 0 [place] [Eliquis] 00 Refill(s), For Atrial Fibrilatio n apixaban Yes 5 mg, PO, Me moria MG Oral 4- Q12H, tab, l Tablet 11:41: 0 [place] [Eliquis] 00 Refill(s), For Atrial Fibrilatio n apixaban 0 Yes 5 mg, PO, Me moria MG Oral 4- Q12H, tab, l Tablet 11:41: 0 [place] [Eliquis] 00 Refill(s), For Atrial Fibrilatio n [...] 08-29 Q12H, tab, l Tablet 11:41: 0 [place] [Eliquis] 00 Refill(s), For Atrial Fibrilatio n apixaban 5 2020-0 Yes 5 mg, PO, Me moria MG Oral 08-29 Q12H, tab, l Tablet 11:41: 0 [place] [Eliquis] 00 Refill(s), For Atrial Fibrilatio n [...] tab, PO, l tablet 11:38: Daily, # [place] 00 90 tab, 3 Refill(s) AMIODarone 2020-0 Yes 200 mg = 1 M emoria 200 mg oral 4-09 tab, PO, l tablet 11:38: Daily, # [place] 00 90 tab, 3 Refill(s) AMIODarone 2020-0 Yes 200 mg = 1 M emoria 200 mg oral 4-09 tab, PO, l tablet 11:38: Daily, # [place] 00 90 tab, 3 Refill(s) AMIODarone 2021-0 Yes 200 mg = 1 M emoria 200 mg oral 4-09 tab, PO, l tablet 11:38: Daily, # [place] 00 90 tab, 3 Refill(s) AMIODarone Yes [...] [place] mg tablet 41 times Medical daily. Laurie metoprolol 2019- Yes 100mg Take 100 Un [...] 00:00: on inhaler 00 [facility] albuterol 2019-0 Yes [facility] 90 4-14 ity of mcg/actuati 00:00: on inhaler 00 [facility] albuterol 2019-0 [...] [facility]osp[facility] 00 (two) l times a day. [facility] [address] Yes 400mg Q.5D Take 400 Met hodi 400 mg 3-[address] tablet 00:00: mouth 2 [facility] [address] Yes 400mg Q.5D Take 400 Met hodi 400 mg 3-[address] tablet 00:00: mouth 2 [facility]osp[facility] 00 (two) l times a day. [facility] [address] Yes 400mg Q.5D Take 400 Met hodi 400 mg 3-[address] tablet 00:00: mouth 2 [facility]osp[facility] 00 (two) l times a day. 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) Influenza Virus 2022-03-05 Completed [facility] [...] [facility] [place] 65+ PFIZER COVID-19 2020-07-23 Completed [facility] VACCINATION 00:00:00 [facility] PFIZER COVID-19 2020-07-23 Completed [facility] MRNA VACCINATION 00:00:00 [facility] PFIZER COVID-19 2020-07-23 Completed [facility] MRNA VACCINATION 00:00:00 [facility] PFIZER COVID-19 2020-07-23 Completed [facility] MRNA VACCINATION 00:00:00 [facility] PFIZER COVID-19 2020-07-23 Completed [facility] MRNA VACCINATION 00:00:00 [facility] PFIZER COVID-19 2020-07-23 Completed [facility] MRNA VACCINATION 00:00:00 [facility] PFIZER COVID-19 2020-07-23 Completed [facility] MRNA VACCINATION 00:00:00 [facility] PFIZER COVID-19 2020-07-23 Completed [facility] MRNA VACCINATION 00:00:00 [facility] PFIZER COVID-19 2020-07-23 Completed [facility] MRNA VACCINATION 00:00:00 [facility] PFIZER COVID-19 2020-07-23 Completed [facility] MRNA VACCINATION 00:00:00 [facility] PFIZER COVID-19 2020-07-23 Completed [facility] MRNA VACCINATION 00:00:00 [facility] PFIZER COVID-19 2020-07-23 Completed [facility] MRNA VACCINATION 00:00:00 [facility] PFIZER COVID-19 2020-07-23 Completed [facility] MRNA VACCINATION 00:00:00 [facility] PFIZER COVID-19 2020-07-23 Completed [facility] MRNA VACCINATION 00:00:00 [facility] PFIZER COVID-19 2020-07-23 Completed [facility] MRNA VACCINATION 00:00:00 [facility] PFIZER COVID-19 2020-07-23 Completed [facility] MRNA VACCINATION 00:00:00 [facility] PEG COVID-19 2020-07-23 Completed [facility] M[facility] VACCINATION 00:00:00 [facility] PEG COVID-19 2020-07-23 Completed [facility] M[facility] VACCINATION 00:00:00 [facility] PFIZER COVID-19 2020-07-23 Completed [facility] MRNA VACCINATION 00:00:00 [facility] PEG COVID-19 2020-07-23 Completed [facility] MRNA VACCINATION 00:00:00 [facility] PFIZER COVID-19 2020-07-23 Completed [facility] M[facility] VACCINATION 00:00:00 [facility] PEG COVID-19 2020-07-23 Completed [facility] MRNA VACCINATION 00:00:00 [facility] PFIZER COVID-19 2020-07-23 Completed [facility] MRNA VACCINATION 00:00:00 [facility] PFIZER COVID-19 2020-07-23 Completed [facility] MRNA VACCINATION 00:00:00 [facility] PFIZER COVID-19 2020-07-23 Completed [facility] MRNA VACCINATION 00:00:00 [facility] PFIZER COVID-19 2020-07-23 Completed [facility] MRNA VACCINATION 00:00:00 [facility] PFIZER COVID-19 2020-07-23 Completed [facility] VACCINATION 00:00:00 [facility] PFIZER COVID-19 2020-07-23 Completed [facility] MRNA VACCINATION 00:00:00 [facility] PFIZER COVID-19 2020-07-23 Completed [facility] MRNA VACCINATION 00:00:00 [facility] PFIZER COVID-19 2020-07-23 Completed [facility] MRNA VACCINATION 00:00:00 [facility] PFIZER COVID-19 2020-07-23 Completed [facility] VACCINATION 00:00:00 [facility] [...] [facility] PFIZER COVID-19 2020-07-23 Completed [facility] MRNA VACCINATION 00:00:00 [facility] PFIZER COVID-19 2020-07-02 Completed [facility] MRNA VACCINATION 00:00:00 [facility] PFIZER COVID-19 2020-07-02 Completed [facility] MRNA VACCINATION 00:00:00 [facility] PFIZER COVID-19 2020-07-02 Completed [facility] M[facility] VACCINATION 00:00:00 [facility] PFIZER COVID-19 2020-07-02 Completed [facility] MRNA VACCINATION 00:00:00 [facility] PFIZER COVID-19 2020-07-02 Completed [facility] MRNA VACCINATION 00:00:00 [facility] PFIZER COVID-19 2020-07-02 Completed [facility] MRNA VACCINATION 00:00:00 [facility] PFIZER COVID-19 2020-07-02 Completed [facility] M[facility] VACCINATION 00:00:00 [facility] PFIZER COVID-19 2020-07-02 Completed [facility] MRNA VACCINATION 00:00:00 [facility] PFIZER COVID-19 2020-07-02 Completed [facility] MRNA VACCINATION 00:00:00 [facility] PFIZER COVID-19 2020-07-02 Completed [facility] 00:00:00 [facility] PFIZER COVID-19 2020-07-02 Completed [facility] 00:00:00 [facility] PFIZER COVID-19 2020-07-02 Completed [facility] 00:00:00 [facility] PFIZER COVID-19 2020-07-02 Completed [facility] 00:00:00 [facility] PFIZER COVID-19 2020-07-02 Completed [facility] 00:00:00 [facility] PFIZER COVID-19 2020-07-02 Completed [facility] 00:00:00 [facility] PFIZER COVID-19 2020-07-02 Completed [facility] 00:00:00 [facility] PFIZER COVID-19 2020-07-02 Completed [facility] 00:00:00 [facility] PFIZER COVID-19 2020-07-02 Completed [facility] 00:00:00 [facility] PFIZER COVID-19 2020-07-02 Completed [facility] 00:00:00 [facility] PFIZER COVID-19 2020-07-02 Completed [facility] 00:00:00 [facility] PFIZER COVID-19 2020-07-02 Completed [facility] 00:00:00 [facility] PFIZER COVID-19 2020-07-02 Completed [facility] 00:00:00 [facility] PFIZER COVID-19 2020-07-02 Completed [facility] 00:00:00 [facility] PFIZER COVID-19 2020-07-02 [facility]00 [facility] COVID-19 2020-07-02 [facility] PFIZER COVID-19 2020-07-02 Completed [facility]00 [facility] PFIZER COVID-19 2020-07-02 Completed [facility] 00:00:00 [facility] PFIZER COVID-19 2020-07-02 Completed [facility] 00:00:00 [facility] PFIZER COVID-19 2020-07-02 Completed [facility] 00:00:00 [facility] PFIZER COVID-19 2020-07-02 Completed [facility] 00:00:00 [facility] PFIZER COVID-19 2020-07-02 Completed [facility] 00:00:00 [facility] [...] [facility] PFIZER COVID-19 2020-07-02 Completed [facility] 00:00:00 [facility] [...] [facility] Branch Pneumococcal 13 2014-01-30 Completed Universit y of Conjugate, PCV13 00:00:00 [facility] dical (Prevnar 13) Branch Influenza Virus 2014-01-30 Completed Universit y of Vaccine (3+ yrs) 00:00:00 [facility] dical Branch Pneumococcal 13 2014-01-30 Completed Universit y of Conjugate, PCV13 00:00:00 [facility] dical (Prevnar 13) Branch Influenza Virus 2014-01-30 Completed Universit y of Vaccine (3+ yrs) 00:00:00 [facility] Pneumococcal 13 2014-01-30 Completed Universit y of Conjugate, PCV13 00:00:00 [facility] dical (Prevnar 13) Branch Influenza Virus 2014-01-30 Completed Universit y of Vaccine (3+ yrs) 00:00:00 [facility] Pneumococcal 13 2014-01-30 Completed Universit y of Conjugate, PCV13 00:00:00 [facility] dical (Prevnar 13) Branch Influenza Virus 2014-01-30 Completed Universit y of Vaccine (3+ yrs) 00:00:00 [facility] Pneumococcal 13 2014-01-30 Completed Universit y of Conjugate, PCV13 00:00:00 [facility] dical (Prevnar 13) Branch Influenza Virus 2014-01-30 Completed Universit y of Vaccine (3+ yrs) 00:00:00 [facility] dical Branch Pneumococcal 13 2014-01-30 Completed Universit y of Conjugate, PCV13 00:00:00 [facility] dical (Prevnar 13) Branch Influenza Virus 2014-01-30 Completed Universit y of Vaccine (3+ yrs) 00:00:00 [facility] dical Branch Pneumococcal 13 2014-01-30 Completed Universit y of Conjugate, PCV13 00:00:00 [facility] dical (Prevnar 13) Branch Influenza Virus 2014-01-30 Completed Universit y of Vaccine (3+ yrs) 00:00:00 [facility] dical Branch Pneumococcal 13 2014-01-30 Completed Universit y of Conjugate, PCV13 00:00:00 [facility] dical (Prevnar 13) Branch Influenza Virus 2014-01-30 [...] y of Vaccine (3+ yrs) 00:00:00 [place] [facility] Pneumococcal 13 2014-01-30 Completed Universit y of Conjugate, PCV13 00:00:00 [place] [facility] (Prevnar 13) Branch Influenza Virus 2014-01-30 Completed Universit y of Vaccine (3+ yrs) 00:00:00 [place] [facility] Pneumococcal 13 2014-01-30 Completed [facility]it y of Conjugate, PCV13 00:00:00 [place] [facility] (Prevnar 13) Branch Influenza Virus 2014-01-30 Completed [facility]it y of Vaccine (3+ yrs) 00:00:00 [place] [facility] Pneumococcal 13 2014-01-30 Completed [facility]it y of Conjugate, PCV13 00:00:00 [place] [facility] (Prevnar 13) Branch Influenza Virus 2014-01-30 Completed [facility]it y of Vaccine (3+ yrs) 00:00:00 [place] [facility] Pneumococcal 13 2014-01-30 Completed [facility]it y of Conjugate, PCV13 00:00:00 [place] [facility] (Prevnar 13) Branch Influenza Virus 2014-01-30 Completed Universit y of Vaccine (3+ yrs) 00:00:00 [place] [facility] Pneumococcal 13 2014-01-30 Completed [facility]it y of Conjugate, PCV13 00:00:00 [place] [facility] (Prevnar 13) Branch Influenza Virus 2014-01-30 Completed [facility]it y of Vaccine (3+ yrs) 00:00:00 [place] [facility] Pneumococcal 13 2014-01-30 Completed Universit y of Conjugate, PCV13 00:00:00 [facility] dical (Prevnar 13) Branch Influenza Virus 2014-01-30 Completed Universit y of Vaccine (3+ yrs) 00:00:00 [facility] dical Branch Pneumococcal 13 2014-01-30 Completed Universit y of Conjugate, PCV13 00:00:00 [facility] dical (Prevnar 13) Branch Pneumococcal 2012-02-16 Completed University o f Polysaccharide, 00:00:00 [place] [facility] PPSV23 (PNEUMOVAX) Branch Influenza Virus 2012-02-16 Completed Universit y of Vaccine 00:00:00 [facility] PPD (TB) 2012-02-16 Completed University of 00:00:00 [facility] Pneumococcal 2012-02-16 Completed University o f Polysaccharide, 00:00:00 [place] [facility] PPSV23 (PNEUMOVAX) Branch Influenza Virus 2012-02-16 Completed Universit y of Vaccine 00:00:00 [facility] PPD (TB) 2012-02-16 Completed University of 00:00:00 [facility] Pneumococcal 2012-02-16 Completed University o f Polysaccharide, 00:00:00 [place] [facility] PPSV23 (PNEUMOVAX) Branch Influenza Virus 2012-02-16 Completed Universit y of Vaccine 00:00:00 [facility] PPD (TB) 2012-02-16 Completed University of 00:00:00 [facility] Pneumococcal 2012-02-16 Completed University o f Polysaccharide, 00:00:00 [place] [facility] PPSV23 (PNEUMOVAX) Branch Influenza Virus 2012-02-16 Completed Universit y of Vaccine 00:00:00 [facility] PPD (TB) 2012-02-16 Completed University of 00:00:00 [facility] Pneumococcal 2012-02-16 Completed University o f Polysaccharide, 00:00:00 [place] [facility] PPSV23 (PNEUMOVAX) Branch Influenza Virus 2012-02-16 Completed Universit y of Vaccine 00:00:00 [facility] PPD (TB) 2012-02-16 Completed University of 00:00:00 [facility] Pneumococcal 2012-02-16 Completed University o f Polysaccharide, 00:00:00 [place] [facility] PPSV23 (PNEUMOVAX) Branch Influenza Virus [...] 2012-02-16 Completed University o f Polysaccharide, 00:00:00 [place] [facility] PPSV23 (PNEUMOVAX) Branch Influenza Virus 2012-02-16 Completed Universit y of Vaccine 00:00:00 [facility] PPD (TB) 2012-02-16 Completed University of 00:00:00 [facility] Pneumococcal 2012-02-16 Completed University o f Polysaccharide, 00:00:00 [place] [facility] PPSV23 (PNEUMOVAX) Branch Influenza Virus 2012-02-16 Completed Universit y of Vaccine 00:00:00 [facility] PPD (TB) 2012-02-16 Completed University of 00:00:00 [facility] Pneumococcal 2012-02-16 Completed University o f Polysaccharide, 00:00:00 [place] [facility] PPSV23 (PNEUMOVAX) Branch Influenza Virus 2012-02-16 Completed Universit y of Vaccine 00:00:00 [facility] PPD (TB) 2012-02-16 Completed University of 00:00:00 [facility] Pneumococcal 2012-02-16 Completed University o f Polysaccharide, 00:00:00 [place] [facility] PPSV23 (PNEUMOVAX) Branch Influenza Virus 2012-02-16 Completed Universit y of Vaccine 00:00:00 [facility] PPD (TB) 2012-02-16 Completed University of 00:00:00 [facility] Pneumococcal 2012-02-16 Completed University o f Polysaccharide, 00:00:00 [place] [facility] PPSV23 (PNEUMOVAX) Branch Influenza Virus 2012-02-16 Completed Universit y of Vaccine 00:00:00 [facility] PPD (TB) 2012-02-16 Completed University of 00:00:00 [facility] Pneumococcal 2012-02-16 Completed University o f Polysaccharide, 00:00:00 [place] [facility] PPSV23 (PNEUMOVAX) Branch Influenza Virus [...] 2012-02-16 Completed University o f Polysaccharide, 00:00:00 [place] [facility] PPSV23 (PNEUMOVAX) Branch Influenza Virus 2012-02-16 Completed Universit y of Vaccine 00:00:00 [facility] PPD (TB) 2012-02-16 Completed University of 00:00:00 [facility] Pneumococcal 2012-02-16 Completed University o f Polysaccharide, 00:00:00 [place] [facility] PPSV23 (PNEUMOVAX) Branch Influenza Virus 2012-02-16 Completed Universit y of Vaccine 00:00:00 [facility] PPD (TB) 2012-02-16 Completed University of 00:00:00 [facility] Pneumococcal 2012-02-16 Completed University o f Polysaccharide, 00:00:00 [place] [facility] PPSV23 (PNEUMOVAX) Branch Influenza Virus 2012-02-16 Completed Universit y of Vaccine 00:00:00 [facility] PPD (TB) 2012-02-16 Completed University of 00:00:00 [facility] Pneumococcal 2012-02-16 Completed University o f Polysaccharide, 00:00:00 [place] [facility] PPSV23 (PNEUMOVAX) Branch Influenza Virus [...] 2011-03-17 Completed Unive rsity of Dosage 00:00:00 [place] [facility] Hep B, Adol or Pedi [...] 2011-03-17 Completed Unive rsity of Dosage 00:00:00 [facility] Hep B, Adol or Pedi 2011-03-17 Completed Unive rsity of Dosage 00:00:00 [facility] Hep B, Adol or Pedi 2011-03-17 Completed Unive rsity of Dosage 00:00:00 [facility] Hep B, Adol or Pedi 2011-03-17 Completed Unive rsity of Dosage 00:00:00 [facility] Hep B, Adol or Pedi 2011-03-17 Completed Unive rsity of Dosage 00:00:00 [facility] Hep B, Adol or Pedi 2011-03-17 Completed Unive rsity of Dosage 00:00:00 [facility] Hep B, Adol or Pedi 2011-03-17 Completed Unive rsity of Dosage 00:00:00 [facility] Hep B, Adol or Pedi 2011-03-17 Completed Unive rsity of Dosage 00:00:00 [facility] Hep B, Adol or Pedi 2011-03-17 Completed Unive rsity of Dosage 00:00:00 [facility] Influenza Virus 2011-02-10 Completed Universit y of Vaccine 00:00:00 [facility] Hep B, Adol or Pedi 2011-02-10 Completed Unive rsity of Dosage 00:00:00 [facility] Branch Influenza Virus 2011-02-10 Completed Universit y of Vaccine 00:00:00 [facility] Hep B, Adol or Pedi 2011-02-10 Completed Unive rsity of Dosage 00:00:00 [facility] Influenza Virus 2011-02-10 Completed Universit y of Vaccine 00:00:00 [facility] Hep B, Adol or Pedi [...] Universit y of Vaccine 00:00:00 [facility] Branch Hep B, Adol or Pedi 2011-02-10 Completed Unive rsity of Dosage 00:00:00 [facility] Influenza Virus 2011-02-10 Completed Universit y of Vaccine 00:00:00 [facility] Branch Hep B, Adol or [...] 2010-11-18 Completed University of 00:00:00 [facility] Branch TDAP (ADACEL) 2010-11-18 Completed University of VACCINE 00:00:00 [facility] PPD (TB) 2010-11-18 Completed University of 00:00:00 [facility] Branch TDAP (ADACEL) 2010-11-18 Completed [...] 2010-11-18 Completed University of 00:00:00 [facility] Branch TDAP (ADACEL) 2010-11-18 Completed University of VACCINE 00:00:00 [facility] PPD (TB) 2010-11-18 Completed University of 00:00:00 [facility] Branch TDAP (ADACEL) 2010-11-18 Completed [...] 2004-03-02 Completed University of 00:00:00 [facility] Branch HEPATITIS A 2004-03-02 Completed University of 00:00:00 [facility] Branch HEPATITIS A 2004-03-02 Completed University of 00:00:00 [facility] Branch HEPATITIS A 2004-03-02 Completed University of 00:00:00 [facility] Branch HEPATITIS A 2004-03-02 Completed University of 00:00:00 [facility] Branch HEPATITIS A 2004-03-02 Completed University of 00:00:00 [facility] Branch HEPATITIS A 2004-03-02 Completed University of 00:00:00 [facility] Branch HEPATITIS A 2004-03-02 Completed University of 00:00:00 [facility] Branch HEPATITIS A 2004-03-02 Completed University of 00:00:00 [facility] Branch HEPATITIS A 2004-03-02 Completed University of 00:00:00 [facility] Branch HEPATITIS A 2004-03-02 Completed University of 00:00:00 [facility] Branch HEPATITIS A 2004-03-02 Completed University of 00:00:00 [facility] Branch HEPATITIS A 2004-03-02 Completed University of 00:00:00 [facility] Branch HEPATITIS A 2004-03-02 Completed University of 00:00:00 [facility] Branch HEPATITIS A 2004-03-02 Completed University of 00:00:00 [facility] Branch HEPATITIS A 2004-03-02 Completed University of 00:00:00 [facility] Branch HEPATITIS A 2004-03-02 Completed University of 00:00:00 [facility] Branch HEPATITIS A 2004-03-02 Completed University of 00:00:00 [facility] Branch HEPATITIS A 2003-08-01 Completed University of 00:00:00 [facility] Branch HEPATITIS A 2003-08-01 Completed University of 00:00:00 [facility] Branch HEPATITIS A 2003-08-01 Completed University of 00:00:00 [facility] Branch HEPATITIS A 2003-08-01 Completed University of 00:00:00 [facility] HEPATITIS A 2003-08-01 Completed University of 00:00:00 [facility] HEPATITIS A 2003-08-01 Completed University of 00:00:00 [facility] Branch HEPATITIS A 2003-08-01 Completed University of 00:00:00 [facility] Branch HEPATITIS A 2003-08-01 Completed University of 00:00:00 [facility] Branch HEPATITIS A 2003-08-01 Completed [...] 2003-08-01 Completed University of 00:00:00 [facility] HEPATITIS A 2003-08-01 Completed [...] 2001-10-04 Completed University o f Polysaccharide, 00:00:00 [place] [facility] PPSV23 (PNEUMOVAX) Branch PPD (TB) 2001-10-04 Completed University of 00:00:00 [facility] Pneumococcal 2001-10-04 Completed University o f Polysaccharide, 00:00:00 [place] [facility] PPSV23 (PNEUMOVAX) Branch PPD (TB) 2001-10-04 Completed University of 00:00:00 [facility] Pneumococcal 2001-10-04 Completed University o f Polysaccharide, 00:00:00 [place] [facility] PPSV23 (PNEUMOVAX) Branch PPD (TB) [...] PPD (TB) 2001-10-04 Completed University of 00:00:00 [place] [facility] Pneumococcal 2001-10-04 Completed [place] [facility], 00:00:00 [facility] ical PPSV23 (PNEUMOVAX) Branch PPD (TB) 2001-10-04 Completed University 00:00:00 [facility] Vital Signs Vital Name Observation Time Observation Value Comments Source Systolic blood 2022-05-10 22:00:00 159 mm[Hg] Univer sity of pressure [facility] Diastolic blood 2022-05-10 22:00:00 87 mm[Hg] Unive rsity of pressure [facility] Heart rate 2022-05-10 22:00:00 56 /min Universi ty of [facility] Body temperature 2022-05-10 22:00:00 36.61 Amina Univ ersity of [facility] Respiratory rate 2022-05-10 22:00:00 17 /min Univ ersity of [facility] Oxygen saturation in 2022-05-10 22:00:00 98 /min University of Arterial blood by [facility] porfirio Pulse oximetry Branch Body weight 2022-05-10 16:29:00 78.926 kg Universi ty of [place] [facility] [place] BMI 2022-05-10 16:29:00 29.87 kg/m2 [facility] [place] [facility] Systolic blood 2022-05-08 22:30:00 168 mm[Hg] Univer sity of pressure [facility] [place] Diastolic blood 2022-05-08 22:30:00 85 mm[Hg] Unive rsity of pressure [facility] Heart rate 2022-05-08 22:30:00 68 /min Universi ty of [facility] Oxygen saturation in 2022-05-08 22:30:00 100 /min University of Arterial blood by [facility] porfirio Pulse oximetry Branch Body temperature 2022-05-08 22:22:00 35.89 Amina Univ ersity of [facility] Branch Respiratory rate 2022-05-08 22:22:00 14 /min Univ ersity of [place] [facility] [place] Body weight 2022-05-08 22:22:00 78.926 kg Universi ty of [place] [facility] [place] BMI 2022-05-08 22:22:00 29.87 kg/m2 Universi ty of [facility] Branch Systolic blood 2022-05-07 00:00:00 149 mm[Hg] Univer sity of pressure [facility] Diastolic blood 2022-05-07 00:00:00 132 mm[Hg] Unive rsity of pressure [place] [facility] Heart rate 2022-05-07 00:00:00 59 /min Universi ty of [place] [facility] Respiratory rate 2022-05-07 00:00:00 14 /min Univ ersity of [place] [facility] Oxygen saturation in 2022-05-07 00:00:00 99 /min University of Arterial blood by [facility] Pulse oximetry Branch Body temperature 2022-05-06 20:12:00 36.5 Amina Univ ersity of [place] [facility] Body height 2022-05-06 20:12:00 162.6 cm [facility] [place] [facility] Body weight 2022-05-06 20:12:00 78.926 kg [facility] [place] [facility] BMI 2022-05-06 20:12:00 29.87 kg/m2 [facility] [place] [facility] Systolic blood 2022-04-22 19:50:00 156 mm[Hg] Univer sity of pressure [facility] Diastolic blood 2022-04-22 19:50:00 89 mm[Hg] Unive rsity of pressure [facility] Heart rate 2022-04-22 19:50:00 69 /min [facility] [place] [facility] Body temperature 2022-04-22 19:50:00 36.67 Amina Univ ers[facility] [place] [facility] Respiratory rate 2022-04-22 19:50:00 17 /min Univ ersity [facility] [place] [facility] Body height 2022-04-22 19:50:00 162.6 cm [facility] [place] [facility] Body weight 2022-04-22 19:50:00 80.74 kg [facility] [place] [facility] BMI 2022-04-22 19:50:00 30.55 kg/m2 [facility] [place] [facility] Oxygen saturation in 2022-04-22 19:50:00 96 /min University of Arterial blood by [facility] porfirio Pulse oximetry Branch Systolic blood 2022-03-05 15:23:00 167 mm[Hg] Univer sity of pressure [facility] Diastolic blood 2022-03-05 15:23:00 105 mm[Hg] Unive rsity of pressure [facility] Heart rate 2022-03-05 15:23:00 49 /min [facility] [place] [facility] Body temperature 2022-03-05 15:18:00 36.67 Amina Univ ers[facility] [place] [facility] Respiratory rate 2022-03-05 15:18:00 18 /min Univ ers[facility] [place] [facility] Body height 2022-03-05 15:18:00 162.6 cm [facility] [place] [facility] Body weight 2022-03-05 15:18:00 74.707 kg [facility] [place] [facility] BMI 2022-03-05 15:18:00 28.27 kg/m2 [facility] [place] [facility] Systolic blood 2022-02-16 21:41:00 169 mm[Hg] Univer sity of pressure [facility] Diastolic blood 2022-02-16 21:41:00 86 mm[Hg] Unive rsity of pressure [facility] Heart rate 2022-02-16 21:41:00 51 /min [facility] [place] [facility] Body temperature 2022-02-16 21:41:00 36.56 Amina [facility] [place] [facility] Respiratory rate 2022-02-16 21:41:00 17 /min Univ ersity of [facility] Oxygen saturation in 2022-02-16 21:41:00 98 /min University Arterial blood by [facility] Pulse oximetry Branch Body height 2022-02-11 16:02:00 162.6 cm [facility]i ty [facility] [place] [facility] Body weight 2022-02-11 16:02:00 79.379 kg [facility] [place] [facility] BMI 2022-02-11 16:02:00 30.04 kg/m2 [facility] [place] [facility] Systolic blood 2021-11-20 13:47:00 165 mm[Hg] Univer sity of pressure [facility] Diastolic blood 2021-11-20 13:47:00 83 mm[Hg] Unive rsity of pressure [facility] Heart rate 2021-11-20 13:47:00 58 /min [facility] [place] [facility] Body temperature 2021-11-20 13:42:00 36.39 Amina Univ [facility] [place] [facility] Respiratory rate 2021-11-20 13:42:00 16 /min Univ ers[facility] [place] [facility] Body height 2021-11-20 13:42:00 162.6 cm Universi ty of [facility] Body weight 2021-11-20 13:42:00 84.369 kg Universi ty of [facility] BMI 2021-11-20 13:42:00 31.93 kg/m2 [...] 2021-07-14 15:18:00 35[facility]87 [facility] 2022-03-05 15:23:00 167 mm[Hg] Univer sity of [facility] Diastolic blood 2022-03-05 15:23:00 105 mm[Hg] Unive rsity of [facility] Heart rate 2022-03-05 15:23:00 49 /min Universi ty [facility] Body temperature 2022-03-05 15:18:00 36.67 [facility]a [facility] 2022-03-05 15:18:00 18 /min [facility] Body height 2022-03-05 15:18:00 162.6 cm Universi ty [facility] Body weight 2022-03-05 15:18:00 74.707 kg Universi ty of [facility] BMI 2022-03-05 15:18:00 28.27 kg/m2 [facility] Oxygen saturation in 2022-02-16 21:41:00 98 /min [facility] Arterial blood by [facility] Pulse oximetry Branch Systolic blood 2020-12-08 15:48:00 125 mm[Hg] [facility] pressure Diastolic blood 2020-12-08 15:48:00 76 mm[Hg] [facility] pressure Heart rate 2020-12-08 15:48:00 64 /min [facility] Body temperature 2020-12-08 15:48:00 36.61 [facility] Respiratory rate 2020-12-08 15:48:00 17 /min [facility] Body height 2020-12-08 15:48:00 162.6 cm [facility] Body weight 2020-12-08 15:48:00 98.884 kg [facility] BMI 2020-12-08 15:48:00 37.42 kg/m2 [facility] Oxygen saturation in 2020-12-08 15:48:00 97 /min [facility] Arterial blood by Pulse oximetry Respitory Rate 2020-08-30 13:00:00 [facility] [place] Systolic (mm Hg) 2020-08-30 13:00:00 [facility] [place] Diastolic (mm Hg) 2020-08-30 13:00:00 [facility] [place] Systolic (mm Hg) 2020-08-30 11:00:00 [facility] [place] Diastolic (mm Hg) 2020-08-30 11:00:00 [facility] [place] Temperature Oral (F) 2020-08-30 11:00:00 98.4 F [facility] Respitory Rate 2020-08-30 11:00:00 [facility] [place] Respitory Rate 2020-08-30 10:00:00 [facility] [place] Systolic (mm Hg) 2020-08-30 10:00:00 [facility] [place] Diastolic (mm Hg) 2020-08-30 10:00:00 Mem [facility] [place] Temperature Oral (F) 2020-08-30 00:00:00 96.9 F [facility] Temperature Oral (F) 2020-08-29 11:26:00 97.6 F [facility] Height 2020-08-29 10:30:00 162.56 cm [facility] Weight 2020-08-29 10:30:00 [facility] [place] BMI Calculated 2020-08-29 10:30:00 [facility] Procedures Procedure Date / Time Performing Clinician Source Performed URINALYSIS 2022-05-10 19:36:[address] [facility] TROPONIN I 2022-05-10 18:34:[address] [facility] COMP. METABOLIC PANEL 2022-05-10 18:34:00 Home [facility] ([id number]) Medical Branch CBC WITH DIFF 2022-05-10 18:34:[address] [facility] XR CHEST 2 VW 2022-05-10 17:24:[address] [facility] CONSENT/REFUSAL FOR 2022-05-10 16:26:23 Doctor [facility] DIAGNOSIS AND TREATMENT [place] [facility] CONSENT/REFUSAL FOR 2022-05-10 16:26:09 Doctor Daron [facility] DIAGNOSIS AND TREATMENT [place] [facility] URINALYSIS 2022-05-08 22:43:00 Theresa Hickman [facility] XR CHEST 2 VW 2022-05-06 22:56:[address] [facility] COMP. METABOLIC PANEL 2022-05-06 22:14:00 Anette Olea [facility] ([id number]) Medical [place] CBC WITH DIFF 2022-05-06 22:14:[address] [facility] COVID-19 (ID NOW RAPID 2022-05-06 22:14:00 Anette Olea [facility] TESTING) Medical Branch BASIC METABOLIC PANEL (NA, 2022-04-22 21:23:00 Paulette Gray [facility] K, CL, CO2, GLUCOSE, BUN, Medica l [place] CREATININE, CA) CBC WITH DIFF 2022-04-22 21:23:00 Paulette Gray [facility] CONSENT/REFUSAL FOR 2022-04-22 19:45:46 Doctor Daron [facility] DIAGNOSIS AND TREATMENT [place] [facility] SARS-COV-2 COVID-19 2022-03-05 16:09:27 [facility] DIMITRIS-SUCROSE VACCINE [address] [place] [address] YRS+, BIVALENT 0.3ML, IM, (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) FLU 2022-03-05 16:09:27 [facility] VACC(),65+YR,0.5 Medica l Branch ML,IM,ADJUVANTED,QUAD(FLUA D) FLU 2022-03-05 16:09:27 [facility] VACC(),65+YR,0.5 Medica l Branch ML,IM,ADJUVANTED,QUAD(FLUA D) SARS-COV-2 COVID-19 2022-03-05 16:09:27 [facility] DIMITRIS-SUCROSE VACCINE 12 Medical Branch YRS+, BIVALENT 0.3ML, IM, (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) MAGNESIUM 2022-02-15 09:41:[address] [facility] BASIC METABOLIC PANEL (NA, 2022-02-15 09:41:00 Radha Sofia [facility] K, CL, CO2, GLUCOSE, BUN, Medica l Branch CREATININE, CA) CBC WITH DIFF 2022-02-15 09:41:00 Radha [facility] N-TERMINAL PRO-BNP 2022-02-15 09:41:00 Sofia Garcia [facility] CBC WITH DIFF 2022-02-15 09:41:[address] [facility] BASIC METABOLIC PANEL (NA, 2022-02-15 09:41:00 Sofia Garcia [facility] K, CL, CO2, GLUCOSE, BUN, Medica l Branch CREATININE, CA) MAGNESIUM 2022-02-15 09:41:[address] [facility] N-TERMINAL PRO-BNP 2022-02-15 09:41:00 Sofia Garcia [facility] BASIC METABOLIC PANEL (NA, 2022-02-13 09:40:00 Sofia Garcia [facility] K, CL, CO2, GLUCOSE, BUN, Medica l Branch CREATININE, CA) CBC WITH DIFF 2022-02-13 09:40:00 Radha [facility] BASIC METABOLIC PANEL (NA, 2022-02-13 09:40:00 Radha Sofia [facility] K, CL, CO2, GLUCOSE, BUN, Medica l Branch CREATININE, CA) CBC WITH DIFF 2022-02-13 09:40:[address] [facility] TROPONIN I 2022-02-11 23:41:00 Radha [facility] N-TERMINAL PRO-BNP 2022-02-11 23:41:00 Sofia Garcia [facility] TROPONIN I 2022-02-11 23:41:[address] [facility] N-TERMINAL PRO-BNP 2022-02-11 23:41:00 Sofia Garcia [facility] HB ECG ROUTINE & RHYTHM 2022-02-11 22:15:36 [facility] 2022-02-11 21:26:50 [facility] 2022-02-11 21:26:50 [facility] 2022-02-11 07:45:43 Miguelangel [facility] CONTRAST [facility] CT ABDOMEN PELVIS W 2022-02-11 07:45:43 Miguelangel [facility] CONTRAST [facility] RAPID INFLUENZA A/B 2022-02-11 06:54:00 Miguelangel Reilly [facility] RAPID INFLUENZA A/B 2022-02-11 06:54:00 Reilly Means [facility] URINALYSIS 2022-02-11 06:45:00 Miguelangel [facility] URINE CULTURE 2022-02-11 06:45:00 Miguelangel [facility] URINALYSIS 2022-02-11 06:45:00 Miguelangel [facility] URINE CULTURE 2022-02-11 06:45:00 Reilly Means [facility] HB ECG ROUTINE & RHYTHM 2022-02-11 05:22:08 Reilly Means [facility] HB ECG ROUTINE & RHYTHM 2022-02-11 05:22:08 Reilly Means [facility] BLOOD CULTURE SCREEN 2022-02-11 04:58:00 Reilly Means [facility] TROPONIN I 2022-02-11 04:58:00 Reilly Means [facility] COMP. METABOLIC PANEL 2022-02-11 04:58:00 Reilly Means [facility] ([id number]) Medical Branch CBC WITH DIFF 2022-02-11 04:58:00 Reilly Means [facility] PROTHROMBIN TIME / INR 2022-02-11 04:58:00 Reilly Means [facility] ACTIVATED PARTIAL THRMPLAS 2022-02-11 04:58:00 Reilly Means [facility] N-TERMINAL PRO-BNP 2022-02-11 04:58:00 Reilly Means [facility] LACTIC ACID WHOLE BLOOD 2022-02-11 04:58:00 Reilly Means [facility] COVID-19 (ID NOW RAPID 2022-02-11 04:58:00 Reilly Means [facility] TESTING) Medical Branch LAB ONLY COVID 2022-02-11 04:58:00 Reilly Means [facility] CBC WITH DIFF 2022-02-11 04:58:00 Reilly Means [facility] ACTIVATED PARTIAL THRMPLAS 2022-02-11 04:58:00 Reilly Means [facility] PROTHROMBIN TIME / INR 2022-02-11 04:58:00 Reilly Means [facility] COVID-19 (ID NOW RAPID 2022-02-11 04:58:00 Reilly Means [facility] TESTING) Medical Branch COMP. METABOLIC PANEL 2022-02-11 04:58:00 Reilly Means [facility] ([id number]) Medical Branch TROPONIN I 2022-02-11 04:58:00 Reilly Means [facility] N-TERMINAL PRO-BNP 2022-02-11 04:58:00 Reilly Means [facility] BLOOD CULTURE SCREEN 2022-02-11 04:58:00 Reilly Means [facility] LACTIC ACID WHOLE BLOOD 2022-02-11 04:58:00 Reilly Means [facility] LAB ONLY COVID 2022-02-11 04:58:00 Reilly Means [facility] XR CHEST 1 VW 2022-02-11 04:27:42 Reilly Means [facility] XR CHEST 1 VW 2022-02-11 04:27:42 Reilly Means [facility] HOSPITAL ADMISSION 2022-02-10 05:01:00 Doctor Unassigned, [facility] Name [facility] HOSPITAL ADMISSION 2022-02-10 05:01:00 Doctor Unassigned, [facility] Name [facility] ECG 12-LEAD 2021-07-14 15:14:00 Elan Lira [facility] [id number] 2021-06-17 00:00:00 RIYK Freedman [facility] GASTROINTESTINAL PANEL 2020-12-08 22:21:00 Jailyn [facility] XR ABDOMEN 1 VW 2020-12-08 18:06:32 Eliseo Arce spital [place] < 1 HOUR 2020-09-05 22:39:00 Eliseo Arce spital SURGICAL PATHOLOGY REQUEST 2020-09-05 21:54:00 [facility] CHEST 1 VW PORTABLE 2020-09-05 19:55:00 Jailyn [facility] DISCHARGE PATIENT 2020-09-05 17:27:55 Lucas Harris [facility] [place] AN ELECTIVE 2020-09-05 16:47:23 [facility], INTRAOPERATIVE 2020-09-05 16:27[facility] 2020-09-05 15:04:00 [facility] M. PROTHROMBIN TIME WITH INR 2020-09-05 15:04:00 Mindy Maharaj [facility] M. Plan of Care Planned Activity Planned Date Details Comments Source Future Scheduled 2022-06-11 SHINGLES VACCINES (1 Met [facility] Test 16:10:12 of 2) [code = SHINGLES VACCINES (1 of 2)] Future Scheduled 2022-06-11 BREAST CANCER [facility] Test 16:10:12 SCREENING [code = BREAST CANCER SCREENING] Future Scheduled 2022-06-11 COLONOSCOPY SCREENING [facility] Test 16:10:12 [code = COLONOSCOPY SCREENING] Future Scheduled 2022-06-11 HEPATITIS B VACCINES [facility] Test 16:10:12 (1 of 3 - Risk 3-dose series) [code = HEPATITIS B VACCINES (1 of 3 - Risk 3-dose series)] Future Scheduled 2022-06-11 COVID-19 VACCINE (3 - [facility] Test 16:10:12 Booster for Pfizer series) [code = COVID-19 VACCINE (3 - Booster for Pfizer series)] Future Scheduled 2022-06-11 65+ [facility] VACCINE (4 - PPSV23 if available, else PCV20) [code = 65+ PNEUMOCOCCAL VACCINE (4 - PPSV23 if available, else PCV20)] Future Scheduled 2022-06-11 INFLUENZA VACCINE [facility] Test 16:10:12 [code = INFLUENZA VACCINE] Future Scheduled 2022-06-11 SHINGLES VACCINES (1 [facility] Test 16:10:12 of 2) [code = SHINGLES VACCINES (1 of 2)] Future Scheduled 2022-06-11 BREAST CANCER [facility] Test 16:10:12 SCREENING [code = BREAST CANCER SCREENING] Future Scheduled 2022-06-11 COLONOSCOPY SCREENING [facility] Test 16:10:12 [code = COLONOSCOPY SCREENING] Future Scheduled 2022-06-11 HEPATITIS B VACCINES [facility] Test 16:10:12 (1 of 3 - Risk 3-dose series) [code = HEPATITIS B VACCINES (1 of 3 - Risk 3-dose series)] Future Scheduled 2022-06-11 COVID-19 VACCINE (3 - Me [facility] Test 16:10:12 Booster for Pfizer series) [code = COVID-19 VACCINE (3 - Booster for Pfizer series)] Future Scheduled 2022-06-11 65+ [facility] 16:10:12 VACCINE (4 - PPSV23 if available, else PCV20) [code = 65+ PNEUMOCOCCAL VACCINE (4 - PPSV23 if available, else PCV20)] Future Scheduled 2022-06-11 INFLUENZA VACCINE [facility] Test 16:10:12 [code = INFLUENZA VACCINE] Future Scheduled 2022-06-11 SHINGLES VACCINES (1 [facility] Test 16:10:12 of 2) [code = SHINGLES VACCINES (1 of 2)] Future Scheduled 2022-06-11 BREAST CANCER [facility] Test 16:10:12 SCREENING [code = BREAST CANCER SCREENING] Future Scheduled 2022-06-11 COLONOSCOPY SCREENING Me [facility] Test 16:10:12 [code = COLONOSCOPY SCREENING] Future Scheduled 2022-06-11 HEPATITIS B VACCINES [facility] Test 16:10:12 (1 of 3 - Risk 3-dose series) [code = HEPATITIS B VACCINES (1 of 3 - Risk 3-dose series)] Future Scheduled 2022-06-11 COVID-19 VACCINE (3 - [facility] Test 16:10:12 Booster for Pfizer series) [code = COVID-19 VACCINE (3 - Booster for Pfizer series)] Future Scheduled 2022-06-11 65+ [facility] 16:10:12 VACCINE (4 - PPSV23 if available, else PCV20) [code = 65+ PNEUMOCOCCAL VACCINE (4 - PPSV23 if available, else PCV20)] Future Scheduled 2022-06-11 INFLUENZA VACCINE [facility] Test 16:10:12 [code = INFLUENZA VACCINE] Future Scheduled 2022-05-10 SHINGLES VACCINES (1 [facility] Test 10:21:35 of 2) [code = SHINGLES VACCINES (1 of 2)] Future Scheduled 2022-05-10 BREAST [facility]CER [facility] Test 10:21:35 SCREENING [code = BREAST CANCER SCREENING] Future Scheduled 2022-05-10 COLONOSCOPY SCREENING [facility] Test 10:21:35 [code = COLONOSCOPY SCREENING] Future Scheduled 2022-05-10 HEPATITIS B VACCINES [facility] Test 10:21:35 (1 of 3 - Risk 3-dose series) [code = HEPATITIS B VACCINES (1 of 3 - Risk 3-dose series)] Future Scheduled 2022-05-10 COVID-19 VACCINE (3 - Me [facility] Test 10:21:35 Booster for Pfizer series) [code = COVID-19 VACCINE (3 - Booster for Pfizer series)] Future Scheduled 2022-05-10 65+ [facility]AL [facility] 10:21:35 VACCINE (4 - PPSV23 if available, else PCV20) [code = 65+ PNEUMOCOCCAL VACCINE (4 - PPSV23 if available, else PCV20)] Future Scheduled 2022-05-10 INFLUENZA VACCINE [facility] Test 10:21:35 [code = INFLUENZA VACCINE] Future Scheduled 2022-05-10 SHINGLES VACCINES (1 [facility] Test 10:21:35 of 2) [code = SHINGLES VACCINES (1 of 2)] Future Scheduled 2022-05-10 BREAST CANCER [facility] Test 10:21:35 SCREENING [code = BREAST CANCER SCREENING] Future Scheduled 2022-05-10 COLONOSCOPY SCREENING [facility] Test 10:21:35 [code = COLONOSCOPY SCREENING] Future Scheduled 2022-05-10 HEPATITIS B VACCINES [facility] Test 10:21:35 (1 of 3 - Risk 3-dose series) [code = HEPATITIS B VACCINES (1 of 3 - Risk 3-dose series)] Future Scheduled 2022-05-10 COVID-19 VACCINE (3 - [facility] Test 10:21:35 Booster for Pfizer series) [code = COVID-19 VACCINE (3 - Booster for Pfizer series)] Future Scheduled 2022-05-10 65+ PNEUMOCOCCAL [facility] Test 10:21:35 VACCINE (4 - PPSV23 if available, else PCV20) [code = 65+ PNEUMOCOCCAL VACCINE (4 - PPSV23 if available, else PCV20)] Future Scheduled 2022-05-10 INFLUENZA VACCINE [facility] Test 10:21:35 [code = INFLUENZA VACCINE] Future Scheduled 2022-05-06 SHINGLES VACCINES (1 [facility] Test 14:03:13 of 2) [code = SHINGLES VACCINES (1 of 2)] Future Scheduled 2022-05-06 BREAST CANCER [facility] Test 14:03:13 SCREENING [code = BREAST CANCER SCREENING] Future Scheduled 2022-05-06 COLONOSCOPY SCREENING [facility] Test 14:03:13 [code = COLONOSCOPY SCREENING] Future Scheduled 2022-05-06 HEPATITIS B VACCINES [facility] Test 14:03:13 (1 of 3 - Risk 3-dose series) [code = HEPATITIS B VACCINES (1 of 3 - Risk 3-dose series)] Future Scheduled 2022-05-06 COVID-19 VACCINE (3 - [facility] Test 14:03:13 Booster for Pfizer series) [code = COVID-19 VACCINE (3 - Booster for Pfizer series)] Future Scheduled 2022-05-06 65+ [facility] 14:03:13 VACCINE (4 - PPSV23 if available, else PCV20) [code = 65+ PNEUMOCOCCAL VACCINE (4 - PPSV23 if available, else PCV20)] Future Scheduled 2022-05-06 INFLUENZA VACCINE [facility] Test 14:03:13 [code = INFLUENZA VACCINE] Future Scheduled 2022-04-30 SHINGLES VACCINES (1 [facility] Test 01:07:32 of 2) [code = SHINGLES VACCINES (1 of 2)] Future Scheduled 2022-04-30 BREAST CANCER [facility] Test 01:07:32 SCREENING [code = BREAST CANCER SCREENING] Future Scheduled 2022-04-30 COLONOSCOPY SCREENING [facility] Test 01:07:32 [code = COLONOSCOPY SCREENING] Future Scheduled 2022-04-30 HEPATITIS B VACCINES [facility] Test 01:07:32 (1 of 3 - Risk 3-dose series) [code = HEPATITIS B VACCINES (1 of 3 - Risk 3-dose series)] Future Scheduled 2022-04-30 COVID-19 VACCINE (3 - [facility] Test 01:07:32 Booster for Pfizer series) [code = COVID-19 VACCINE (3 - Booster for Pfizer series)] Future Scheduled 2022-04-30 65+ [facility] 01:07:32 VACCINE (4 - PPSV23 if available, else PCV20) [code = 65+ PNEUMOCOCCAL VACCINE (4 - PPSV23 if available, else PCV20)] Future Scheduled 2022-04-30 INFLUENZA VACCINE Method [facility] Test 01:07:32 [code = INFLUENZA VACCINE] Future Scheduled 2022-04-30 SHINGLES VACCINES (1 [facility] Test 01:07:32 of 2) [code = SHINGLES VACCINES (1 of 2)] Future Scheduled 2022-04-30 BREAST CANCER [facility] Test 01:07:32 SCREENING [code = BREAST CANCER SCREENING] Future Scheduled 2022-04-30 COLONOSCOPY SCREENING [facility] Test 01:07:32 [code = COLONOSCOPY SCREENING] Future Scheduled 2022-04-30 HEPATITIS B VACCINES [facility] Test 01:07:32 (1 of 3 - Risk 3-dose series) [code = HEPATITIS B VACCINES (1 of 3 - Risk 3-dose series)] Future Scheduled 2022-04-30 COVID-19 VACCINE (3 - Me [facility] Test 01:07:32 Booster for Pfizer series) [code = COVID-19 VACCINE (3 - Booster for Pfizer series)] Future Scheduled 2022-04-30 65+ PNEUMOCOCCAL [facility] Test 01:07:32 VACCINE (4 - PPSV23 if available, else PCV20) [code = 65+ PNEUMOCOCCAL VACCINE (4 - PPSV23 if available, else PCV20)] Future Scheduled 2022-04-30 INFLUENZA VACCINE Method [facility] Test 01:07:32 [code = INFLUENZA VACCINE] Future Scheduled 2022-04-30 SHINGLES VACCINES (1 [facility] Test 01:07:32 of 2) [code = SHINGLES VACCINES (1 of 2)] Future Scheduled 2022-04-30 BREAST CANCER [facility] Test 01:07:32 SCREENING [code = BREAST CANCER SCREENING] Future Scheduled 2022-04-30 COLONOSCOPY SCREENING [facility] Test 01:07:32 [code = COLONOSCOPY SCREENING] Future Scheduled 2022-04-30 HEPATITIS B VACCINES [facility] Test 01:07:32 (1 of 3 - Risk 3-dose series) [code = HEPATITIS B VACCINES (1 of 3 - Risk 3-dose series)] Future Scheduled 2022-04-30 COVID-19 VACCINE (3 - [facility] Test 01:07:32 Booster for Pfizer series) [code = COVID-19 VACCINE (3 - Booster for Pfizer series)] Future Scheduled 2022-04-30 65+ PNEUMOCOCCAL [facility] Test 01:07:32 VACCINE (4 - PPSV23 if available, else PCV20) [code = 65+ PNEUMOCOCCAL VACCINE (4 - PPSV23 if available, else PCV20)] Future Scheduled 2022-04-30 INFLUENZA VACCINE Method [facility] Test 01:07:32 [code = INFLUENZA VACCINE] Future Scheduled 2022-04-25 SHINGLES VACCINES (1 [facility] Test 01:45:02 of 2) [code = SHINGLES VACCINES (1 of 2)] Future Scheduled 2022-04-25 BREAST CANCER [facility] Test 01:45:02 SCREENING [code = BREAST CANCER SCREENING] Future Scheduled 2022-04-25 COLONOSCOPY SCREENING [facility] Test 01:45:02 [code = COLONOSCOPY SCREENING] Future Scheduled 2022-04-25 HEPATITIS B VACCINES [facility] Test 01:45:02 (1 of 3 - Risk 3-dose series) [code = HEPATITIS B VACCINES (1 of 3 - Risk 3-dose series)] Future Scheduled 2022-04-25 COVID-19 VACCINE (3 - Me [facility] Test 01:45:02 Booster for Pfizer series) [code = COVID-19 VACCINE (3 - Booster for Pfizer series)] Future Scheduled 2022-04-25 65+ [facility]AL [facility] Test 01:45:02 VACCINE (4 - PPSV23 if available, else PCV20) [code = 65+ PNEUMOCOCCAL VACCINE (4 - PPSV23 if available, else PCV20)] Future Scheduled 2022-04-25 INFLUENZA VACCINE [facility] Test 01:45:02 [code = INFLUENZA VACCINE] Future Scheduled 2022-03-25 SHINGLES VACCINES (1 [facility] Test 14:48:42 of 2) [code = SHINGLES VACCINES (1 of 2)] Future Scheduled 2022-03-25 BREAST CANCER [facility] Test 14:48:42 SCREENING [code = BREAST CANCER SCREENING] Future Scheduled 2022-03-25 COLONOSCOPY SCREENING Me [facility] Test 14:48:42 [code = COLONOSCOPY SCREENING] Future Scheduled 2022-03-25 HEPATITIS B VACCINES [facility] Test 14:48:42 (1 of 3 - Risk 3-dose series) [code = HEPATITIS B VACCINES (1 of 3 - Risk 3-dose series)] Future Scheduled 2022-03-25 COVID-19 VACCINE (3 - [facility] Test 14:48:42 Booster for Pfizer series) [code = COVID-19 VACCINE (3 - Booster for Pfizer series)] Future Scheduled 2022-03-25 65+ [facility] Test 14:48:42 VACCINE (4 - PPSV23 if available, else PCV20) [code = 65+ PNEUMOCOCCAL VACCINE (4 - PPSV23 if available, else PCV20)] Future Scheduled 2022-03-25 INFLUENZA VACCINE [facility] Test 14:48:42 [code = INFLUENZA VACCINE] Future Scheduled 2022-03-25 SHINGLES VACCINES (1 [facility] Test 14:48:42 of 2) [code = SHINGLES VACCINES (1 of 2)] Future Scheduled 2022-03-25 BREAST CANCER [facility] Test 14:48:42 SCREENING [code = BREAST CANCER SCREENING] Future Scheduled 2022-03-25 COLONOSCOPY SCREENING Me [facility] Test 14:48:42 [code = COLONOSCOPY SCREENING] Future Scheduled 2022-03-25 HEPATITIS B VACCINES [facility] Test 14:48:42 (1 of 3 - Risk 3-dose series) [code = HEPATITIS B VACCINES (1 of 3 - Risk 3-dose series)] Future Scheduled 2022-03-25 COVID-19 VACCINE (3 - Me [facility] Test 14:48:42 Booster for Pfizer series) [code = COVID-19 VACCINE (3 - Booster for Pfizer series)] Future Scheduled 2022-03-25 65+ [facility] Test 14:48:42 VACCINE (4 - PPSV23 if available, else PCV20) [code = 65+ PNEUMOCOCCAL VACCINE (4 - PPSV23 if available, else PCV20)] Future Scheduled 2022-03-25 INFLUENZA VACCINE [facility] Test 14:48:42 [code = INFLUENZA VACCINE] Future Scheduled 2022-03-25 SHINGLES VACCINES (1 Met [facility] Test 14:48:42 of 2) [code = SHINGLES VACCINES (1 of 2)] Future Scheduled 2022-03-25 BREAST CANCER [facility] Test 14:48:42 SCREENING [code = BREAST CANCER SCREENING] Future Scheduled 2022-03-25 COLONOSCOPY SCREENING [facility] Test 14:48:42 [code = COLONOSCOPY SCREENING] Future Scheduled 2022-03-25 HEPATITIS B VACCINES [facility] Test 14:48:42 (1 of 3 - Risk 3-dose series) [code = HEPATITIS B VACCINES (1 of 3 - Risk 3-dose series)] Future Scheduled 2022-03-25 COVID-19 VACCINE (3 - Me [facility] Test 14:48:42 Booster for Pfizer series) [code = COVID-19 VACCINE (3 - Booster for Pfizer series)] Future Scheduled 2022-03-25 65+ [facility] Test 14:48:42 VACCINE (4 - PPSV23 if available, else PCV20) [code = 65+ PNEUMOCOCCAL VACCINE (4 - PPSV23 if available, else PCV20)] Future Scheduled 2022-03-25 INFLUENZA VACCINE [facility] Test 14:48:42 [code = INFLUENZA VACCINE] Future Scheduled 2022-03-25 SHINGLES VACCINES (1 [facility] Test 14:48:42 of 2) [code = SHINGLES VACCINES (1 of 2)] Future Scheduled 2022-03-25 BREAST CANCER [facility] Test 14:48:42 SCREENING [code = BREAST CANCER SCREENING] Future Scheduled 2022-03-25 COLONOSCOPY SCREENING [facility] Test 14:48:42 [code = COLONOSCOPY SCREENING] Future Scheduled 2022-03-25 HEPATITIS B VACCINES [facility] Test 14:48:42 (1 of 3 - Risk 3-dose series) [code = HEPATITIS B VACCINES (1 of 3 - Risk 3-dose series)] Future Scheduled 2022-03-25 COVID-19 VACCINE (3 - Me [facility] Test 14:48:42 Booster for Pfizer series) [code = COVID-19 VACCINE (3 - Booster for Pfizer series)] Future Scheduled 2022-03-25 65+ [facility] Test 14:48:42 VACCINE (4 - PPSV23 if available, else PCV20) [code = 65+ PNEUMOCOCCAL VACCINE (4 - PPSV23 if available, else PCV20)] Future Scheduled 2022-03-25 INFLUENZA VACCINE [facility] Test 14:48:42 [code = INFLUENZA VACCINE] Future Scheduled 2022-03-25 SHINGLES VACCINES (1 Met [facility] Test 14:48:42 of 2) [code = SHINGLES VACCINES (1 of 2)] Future Scheduled 2022-03-25 BREAST CANCER [facility] Test 14:48:42 SCREENING [code = BREAST CANCER SCREENING] Future Scheduled 2022-03-25 COLONOSCOPY SCREENING [facility] Test 14:48:42 [code = COLONOSCOPY SCREENING] Future Scheduled 2022-03-25 HEPATITIS B VACCINES [facility] Test 14:48:42 (1 of 3 - Risk 3-dose series) [code = HEPATITIS B VACCINES (1 of 3 - Risk 3-dose series)] Future Scheduled 2022-03-25 COVID-19 VACCINE (3 - [facility] Test 14:48:42 Booster for Pfizer series) [code = COVID-19 VACCINE (3 - Booster for Pfizer series)] Future Scheduled 2022-03-25 65+ [facility]AL [facility] Test 14:48:42 VACCINE (4 - PPSV23 if available, else PCV20) [code = 65+ PNEUMOCOCCAL VACCINE (4 - PPSV23 if available, else PCV20)] Future Scheduled 2022-03-25 INFLUENZA VACCINE [facility] Test 14:48:42 [code = INFLUENZA VACCINE] Future Scheduled 2022-03-25 SHINGLES VACCINES (1 [facility] Test 14:48:42 of 2) [code = SHINGLES VACCINES (1 of 2)] Future Scheduled 2022-03-25 BREAST CANCER [facility] Test 14:48:42 SCREENING [code = BREAST CANCER SCREENING] Future Scheduled 2022-03-25 COLONOSCOPY SCREENING [facility] Test 14:48:42 [code = COLONOSCOPY SCREENING] Future Scheduled 2022-03-25 HEPATITIS B VACCINES [facility] Test 14:48:42 (1 of 3 - Risk 3-dose series) [code = HEPATITIS B VACCINES (1 of 3 - Risk 3-dose series)] Future Scheduled 2022-03-25 COVID-19 VACCINE (3 - Me [facility] Test 14:48:42 Booster for Pfizer series) [code = COVID-19 VACCINE (3 - Booster for Pfizer series)] Future Scheduled 2022-03-25 65+ [facility] Test 14:48:42 VACCINE (4 - PPSV23 if available, else PCV20) [code = 65+ PNEUMOCOCCAL VACCINE (4 - PPSV23 if available, else PCV20)] Future Scheduled 2022-03-25 INFLUENZA VACCINE [facility] Test 14:48:42 [code = INFLUENZA VACCINE] Future Scheduled 2022-03-25 SHINGLES VACCINES (1 Met [facility] Test 14:48:42 of 2) [code = SHINGLES VACCINES (1 of 2)] Future Scheduled 2022-03-25 BREAST CANCER [facility] Test 14:48:42 SCREENING [code = BREAST CANCER SCREENING] Future Scheduled 2022-03-25 COLONOSCOPY SCREENING [facility] Test 14:48:42 [code = COLONOSCOPY SCREENING] Future Scheduled 2022-03-25 HEPATITIS B VACCINES Met [facility] Test 14:48:42 (1 of 3 - Risk 3-dose series) [code = HEPATITIS B VACCINES (1 of 3 - Risk 3-dose series)] Future Scheduled 2022-03-25 COVID-19 VACCINE (3 - [facility] Test 14:48:42 Booster for Pfizer series) [code = COVID-19 VACCINE (3 - Booster for Pfizer series)] Future Scheduled 2022-03-25 65+ [facility] Test 14:48:42 VACCINE (4 - PPSV23 if available, else PCV20) [code = 65+ PNEUMOCOCCAL VACCINE (4 - PPSV23 if available, else PCV20)] Future Scheduled 2022-03-25 INFLUENZA VACCINE [facility] Test 14:48:42 [code = INFLUENZA VACCINE] Future Scheduled 2022-03-25 SHINGLES VACCINES (1 Met [facility] Test 14:48:42 of 2) [code = SHINGLES VACCINES (1 of 2)] Future Scheduled 2022-03-25 BREAST CANCER [facility] Test 14:48:42 SCREENING [code = BREAST CANCER SCREENING] Future Scheduled 2022-03-25 COLONOSCOPY SCREENING [facility] Test 14:48:42 [code = COLONOSCOPY SCREENING] Future Scheduled 2022-03-25 HEPATITIS B VACCINES Met [facility] Test 14:48:42 (1 of 3 - Risk 3-dose series) [code = HEPATITIS B VACCINES (1 of 3 - Risk 3-dose series)] Future Scheduled 2022-03-25 COVID-19 VACCINE (3 - [facility] Test 14:48:42 Booster for Pfizer series) [code = COVID-19 VACCINE (3 - Booster for Pfizer series)] Future Scheduled 2022-03-25 65+ [facility] Test 14:48:42 VACCINE (4 - PPSV23 if available, else PCV20) [code = 65+ PNEUMOCOCCAL VACCINE (4 - PPSV23 if available, else PCV20)] Future Scheduled 2022-03-25 INFLUENZA VACCINE Method [facility] Test 14:48:42 [code = INFLUENZA VACCINE] Future Scheduled 2022-03-25 SHINGLES VACCINES (1 Met [facility] Test 14:48:42 of 2) [code = SHINGLES VACCINES (1 of 2)] Future Scheduled 2022-03-25 BREAST CANCER [facility] Test 14:48:42 SCREENING [code = BREAST CANCER SCREENING] Future Scheduled 2022-03-25 COLONOSCOPY SCREENING [facility] Test 14:48:42 [code = COLONOSCOPY SCREENING] Future Scheduled 2022-03-25 HEPATITIS B VACCINES Met [facility] Test 14:48:42 (1 of 3 - Risk 3-dose series) [code = HEPATITIS B VACCINES (1 of 3 - Risk 3-dose series)] Future Scheduled 2022-03-25 COVID-19 VACCINE (3 - [facility] Test 14:48:42 Booster for Pfizer series) [code = COVID-19 VACCINE (3 - Booster for Pfizer series)] Future Scheduled 2022-03-25 65+ [facility] Test 14:48:42 VACCINE (4 - PPSV23 if available, else PCV20) [code = 65+ PNEUMOCOCCAL VACCINE (4 - PPSV23 if available, else PCV20)] Future Scheduled 2022-03-25 INFLUENZA VACCINE [facility] Test 14:48:42 [code = INFLUENZA VACCINE] Future Scheduled 2022-03-04 SHINGLES VACCINES (1 Met [facility] Test 14:03:57 of 2) [code = SHINGLES VACCINES (1 of 2)] Future Scheduled 2022-03-04 BREAST CANCER [facility] Test 14:03:57 SCREENING [code = BREAST CANCER SCREENING] Future Scheduled 2022-03-04 COLONOSCOPY SCREENING [facility] Test 14:03:57 [code = COLONOSCOPY SCREENING] Future Scheduled 2022-03-04 HEPATITIS B VACCINES Met [facility] Test 14:03:57 (1 of 3 - Risk 3-dose series) [code = HEPATITIS B VACCINES (1 of 3 - Risk 3-dose series)] Future Scheduled 2022-03-04 COVID-19 VACCINE (3 - Me [facility] Test 14:03:57 Booster for Pfizer series) [code = COVID-19 VACCINE (3 - Booster for Pfizer series)] Future Scheduled 2022-03-04 65+ [facility] Test 14:03:57 VACCINE (4 - PPSV23 if available, else PCV20) [code = 65+ PNEUMOCOCCAL VACCINE (4 - PPSV23 if available, else PCV20)] Future Scheduled 2022-03-04 INFLUENZA VACCINE [facility] Test 14:03:57 [code = INFLUENZA VACCINE] Future Scheduled 2022-03-04 SHINGLES VACCINES (1 Met [facility] Test 14:03:57 of 2) [code = SHINGLES VACCINES (1 of 2)] Future Scheduled 2022-03-04 BREAST CANCER [facility] Test 14:03:57 SCREENING [code = BREAST CANCER SCREENING] Future Scheduled 2022-03-04 COLONOSCOPY SCREENING [facility] Test 14:03:57 [code = COLONOSCOPY SCREENING] Future Scheduled 2022-03-04 HEPATITIS B VACCINES Met [facility] Test 14:03:57 (1 of 3 - Risk 3-dose series) [code = HEPATITIS B VACCINES (1 of 3 - Risk 3-dose series)] Future Scheduled 2022-03-04 COVID-19 VACCINE (3 - Me [facility] Test 14:03:57 Booster for Pfizer series) [code = COVID-19 VACCINE (3 - Booster for Pfizer series)] Future Scheduled 2022-03-04 65+ PNEUMOCOCCAL [facility] Test 14:03:57 VACCINE (4 - PPSV23 if available, else PCV20) [code = 65+ PNEUMOCOCCAL VACCINE (4 - PPSV23 if available, else PCV20)] Future Scheduled 2022-03-04 INFLUENZA VACCINE [facility] Test 14:03:57 [code = INFLUENZA VACCINE] Future Scheduled 2022-03-04 SHINGLES VACCINES (1 Met [facility] Test 14:03:57 of 2) [code = SHINGLES VACCINES (1 of 2)] Future Scheduled 2022-03-04 BREAST CANCER [facility] Test 14:03:57 SCREENING [code = BREAST CANCER SCREENING] Future Scheduled 2022-03-04 COLONOSCOPY SCREENING [facility] Test 14:03:57 [code = COLONOSCOPY SCREENING] Future Scheduled 2022-03-04 HEPATITIS B VACCINES Met [facility] Test 14:03:57 (1 of 3 - Risk 3-dose series) [code = HEPATITIS B VACCINES (1 of 3 - Risk 3-dose series)] Future Scheduled 2022-03-04 COVID-19 VACCINE (3 - [facility] Test 14:03:57 Booster for Pfizer series) [code = COVID-19 VACCINE (3 - Booster for Pfizer series)] Future Scheduled 2022-03-04 65+ [facility] Test 14:03:57 VACCINE (4 - PPSV23 if available, else PCV20) [code = 65+ PNEUMOCOCCAL VACCINE (4 - PPSV23 if available, else PCV20)] Future Scheduled 2022-03-04 INFLUENZA VACCINE [facility] Test 14:03:57 [code = INFLUENZA VACCINE] Future Scheduled 2022-03-04 SHINGLES VACCINES (1 Met [facility] Test 14:03:57 of 2) [code = SHINGLES VACCINES (1 of 2)] Future Scheduled 2022-03-04 BREAST CANCER [facility] Test 14:03:57 SCREENING [code = BREAST CANCER SCREENING] Future Scheduled 2022-03-04 COLONOSCOPY SCREENING Me [facility] Test 14:03:57 [code = COLONOSCOPY SCREENING] Future Scheduled 2022-03-04 HEPATITIS B VACCINES Met [facility] Test 14:03:57 (1 of 3 - Risk 3-dose series) [code = HEPATITIS B VACCINES (1 of 3 - Risk 3-dose series)] Future Scheduled 2022-03-04 COVID-19 VACCINE (3 - Me [facility] Test 14:03:57 Booster for Pfizer series) [code = COVID-19 VACCINE (3 - Booster for Pfizer series)] Future Scheduled 2022-03-04 65+ [facility] 14:03:57 VACCINE (4 - PPSV23 if available, else PCV20) [code = 65+ PNEUMOCOCCAL VACCINE (4 - PPSV23 if available, else PCV20)] Future Scheduled 2022-03-04 INFLUENZA VACCINE [facility] Test 14:03:57 [code = INFLUENZA VACCINE] Future Scheduled 2022-02-11 SHINGLES VACCINES (1 Met [facility] Test 13:39:12 of 2) [code = SHINGLES VACCINES (1 of 2)] Future Scheduled 2022-02-11 BREAST CANCER [facility] Test 13:39:12 SCREENING [code = BREAST CANCER SCREENING] Future Scheduled 2022-02-11 COLONOSCOPY SCREENING [facility] Test 13:39:12 [code = COLONOSCOPY SCREENING] Future Scheduled 2022-02-11 HEPATITIS B VACCINES Met [facility] Test 13:39:12 (1 of 3 - Risk 3-dose series) [code = HEPATITIS B VACCINES (1 of 3 - Risk 3-dose series)] Future Scheduled 2022-02-11 COVID-19 VACCINE (3 - Me [facility] Test 13:39:12 Booster for Pfizer series) [code = COVID-19 VACCINE (3 - Booster for Pfizer series)] Future Scheduled 2022-02-11 65+ [facility]AL [facility] 13:39:12 VACCINE (4 - PPSV23 or PCV20) [code = 65+ PNEUMOCOCCAL VACCINE (4 - PPSV23 or PCV20)] Future Scheduled 2022-02-11 INFLUENZA VACCINE [facility] Test 13:39:12 [code = INFLUENZA VACCINE] Future Scheduled 2022-01-29 SHINGLES VACCINES (1 Met [facility] Test 14:07:20 of 2) [code = SHINGLES VACCINES (1 of 2)] Future Scheduled 2022-01-29 BREAST CANCER [facility] Test 14:07:20 SCREENING [code = BREAST CANCER SCREENING] Future Scheduled 2022-01-29 COLONOSCOPY SCREENING [facility] Test 14:07:20 [code = COLONOSCOPY SCREENING] Future Scheduled 2022-01-29 HEPATITIS B VACCINES Met [facility] Test 14:07:20 (1 of 3 - Risk 3-dose series) [code = HEPATITIS B VACCINES (1 of 3 - Risk 3-dose series)] Future Scheduled 2022-01-29 COVID-19 VACCINE (3 - Me [facility] Test 14:07:20 Booster for Pfizer series) [code = COVID-19 VACCINE (3 - Booster for Pfizer series)] Future Scheduled 2022-01-29 65+ PNEUMOCOCCAL [facility] Test 14:07:20 VACCINE (4 - PPSV23 or PCV20) [code = 65+ PNEUMOCOCCAL VACCINE (4 - PPSV23 or PCV20)] Future Scheduled 2022-01-29 INFLUENZA VACCINE Method [facility] Test 14:07:20 [code = INFLUENZA VACCINE] Future Scheduled 2022-01-29 SHINGLES VACCINES (1 Met [facility] Test 14:07:20 of 2) [code = SHINGLES VACCINES (1 of 2)] Future Scheduled 2022-01-29 BREAST CANCER [facility] Test 14:07:20 SCREENING [code = BREAST CANCER SCREENING] Future Scheduled 2022-01-29 COLONOSCOPY SCREENING [facility] Test 14:07:20 [code = COLONOSCOPY SCREENING] Future Scheduled 2022-01-29 HEPATITIS B VACCINES Met [facility] Test 14:07:20 (1 of 3 - Risk 3-dose series) [code = HEPATITIS B VACCINES (1 of 3 - Risk 3-dose series)] Future Scheduled 2022-01-29 COVID-19 VACCINE (3 - [facility] Test 14:07:20 Booster for Pfizer series) [code = COVID-19 VACCINE (3 - Booster for Pfizer series)] Future Scheduled 2022-01-29 65+ [facility] Test 14:07:20 VACCINE (4 - PPSV23 or PCV20) [code = 65+ PNEUMOCOCCAL VACCINE (4 - PPSV23 or PCV20)] Future Scheduled 2022-01-29 INFLUENZA VACCINE Method [facility] Test 14:07:20 [code = INFLUENZA VACCINE] Future Scheduled 2022-01-29 SHINGLES VACCINES (1 Met [facility] Test 14:07:20 of 2) [code = SHINGLES VACCINES (1 of 2)] Future Scheduled 2022-01-29 BREAST CANCER [facility] Test 14:07:20 SCREENING [code = BREAST CANCER SCREENING] Future Scheduled 2022-01-29 COLONOSCOPY SCREENING [facility] Test 14:07:20 [code = COLONOSCOPY SCREENING] Future Scheduled 2022-01-29 HEPATITIS B VACCINES Met [facility] Test 14:07:20 (1 of 3 - Risk 3-dose series) [code = HEPATITIS B VACCINES (1 of 3 - Risk 3-dose series)] Future Scheduled 2022-01-29 COVID-19 VACCINE (3 - [facility] Test 14:07:20 Booster for Pfizer series) [code = COVID-19 VACCINE (3 - Booster for Pfizer series)] Future Scheduled 2022-01-29 65+ PNEUMOCOCCAL [facility] Test 14:07:20 VACCINE (4 - PPSV23 or PCV20) [code = 65+ PNEUMOCOCCAL VACCINE (4 - PPSV23 or PCV20)] Future Scheduled 2022-01-29 INFLUENZA VACCINE Method [facility] Test 14:07:20 [code = INFLUENZA VACCINE] Future Scheduled 2022-01-29 SHINGLES VACCINES (1 Met [facility] Test 14:07:20 of 2) [code = SHINGLES VACCINES (1 of 2)] Future Scheduled 2022-01-29 BREAST CANCER [facility] Test 14:07:20 SCREENING [code = BREAST CANCER SCREENING] Future Scheduled 2022-01-29 COLONOSCOPY SCREENING [facility] Test 14:07:20 [code = COLONOSCOPY SCREENING] Future Scheduled 2022-01-29 HEPATITIS B VACCINES Met [facility] Test 14:07:20 (1 of 3 - Risk 3-dose series) [code = HEPATITIS B VACCINES (1 of 3 - Risk 3-dose series)] Future Scheduled 2022-01-29 COVID-19 VACCINE (3 - [facility] Test 14:07:20 Booster for Pfizer series) [code = COVID-19 VACCINE (3 - Booster for Pfizer series)] Future Scheduled 2022-01-29 65+ [facility] Test 14:07:20 VACCINE (4 - PPSV23 or PCV20) [code = 65+ PNEUMOCOCCAL VACCINE (4 - PPSV23 or PCV20)] Future Scheduled 2022-01-29 INFLUENZA VACCINE Method [facility] Test 14:07:20 [code = INFLUENZA VACCINE] Future Scheduled 2022-01-20 SHINGLES VACCINES (1 Met [facility] Test 06:12:34 of 2) [code = SHINGLES VACCINES (1 of 2)] Future Scheduled 2022-01-20 Screening for [facility] Test 06:12:34 malignant neoplasm of cervix (procedure) [code = [id number]] Future Scheduled 2022-01-20 BREAST CANCER [facility] Test 06:12:34 SCREENING [code = BREAST CANCER SCREENING] Future Scheduled 2022-01-20 COLONOSCOPY SCREENING [facility] Test 06:12:34 [code = COLONOSCOPY SCREENING] Future Scheduled 2022-01-20 HEPATITIS B VACCINES Met [facility] Test 06:12:34 (1 of 3 - Risk 3-dose series) [code = HEPATITIS B VACCINES (1 of 3 - Risk 3-dose series)] Future Scheduled 2022-01-20 COVID-19 VACCINE (3 - [facility] Test 06:12:34 Booster for Pfizer series) [code = COVID-19 VACCINE (3 - Booster for Pfizer series)] Future Scheduled 2022-01-20 65+ [facility] Test 06:12:34 VACCINE (4 - PPSV23 or PCV20) [code = 65+ PNEUMOCOCCAL VACCINE (4 - PPSV23 or PCV20)] Future Scheduled 2022-01-20 INFLUENZA VACCINE Method [facility] Test 06:12:34 [code = INFLUENZA VACCINE] Future Scheduled 2022-01-16 SHINGLES VACCINES (1 Met [facility] Test 12:09:25 of 2) [code = SHINGLES VACCINES (1 of 2)] Future Scheduled 2022-01-16 Screening for [facility] Test 12:09:25 malignant neoplasm of cervix (procedure) [code = [id number]] Future Scheduled 2022-01-16 BREAST CANCER [facility] Test 12:09:25 SCREENING [code = BREAST CANCER SCREENING] Future Scheduled 2022-01-16 COLONOSCOPY SCREENING [facility] Test 12:09:25 [code = COLONOSCOPY SCREENING] Future Scheduled 2022-01-16 HEPATITIS B VACCINES Met [facility] Test 12:09:25 (1 of 3 - Risk 3-dose series) [code = HEPATITIS B VACCINES (1 of 3 - Risk 3-dose series)] Future Scheduled 2022-01-16 COVID-19 VACCINE (3 - Me [facility] Test 12:09:25 Booster for Pfizer series) [code = COVID-19 VACCINE (3 - Booster for Pfizer series)] Future Scheduled 2022-01-16 65+ PNEUMOCOCCAL [facility] Test 12:09:25 VACCINE (4 - PPSV23 or PCV20) [code = 65+ PNEUMOCOCCAL VACCINE (4 - PPSV23 or PCV20)] Future Scheduled 2022-01-16 INFLUENZA VACCINE Method [facility] Test 12:09:25 [code = INFLUENZA VACCINE] Future Scheduled 2022-01-14 SHINGLES VACCINES (1 Met [facility] Test 04:11:46 of 2) [code = SHINGLES VACCINES (1 of 2)] Future Scheduled 2022-01-14 Screening for [facility] Test 04:11:46 malignant neoplasm of cervix (procedure) [code = [id number]] Future Scheduled 2022-01-14 BREAST CANCER [facility] Test 04:11:46 SCREENING [code = BREAST CANCER SCREENING] Future Scheduled 2022-01-14 COLONOSCOPY SCREENING [facility] Test 04:11:46 [code = COLONOSCOPY SCREENING] Future Scheduled 2022-01-14 HEPATITIS B VACCINES Met [facility] Test 04:11:46 (1 of 3 - Risk 3-dose series) [code = HEPATITIS B VACCINES (1 of 3 - Risk 3-dose series)] Future Scheduled 2022-01-14 COVID-19 VACCINE (3 - [facility] Test 04:11:46 Booster for Pfizer series) [code = COVID-19 VACCINE (3 - Booster for Pfizer series)] Future Scheduled 2022-01-14 65+ PNEUMOCOCCAL [facility] Test 04:11:46 VACCINE (4 - PPSV23 or PCV20) [code = 65+ PNEUMOCOCCAL VACCINE (4 - PPSV23 or PCV20)] Future Scheduled 2022-01-14 INFLUENZA VACCINE Method [facility] Test 04:11:46 [code = INFLUENZA VACCINE] Future Scheduled 2021-08-26 Screening for [facility] Test 13:02:23 malignant neoplasm of cervix (procedure) [code = [id number]] Future Scheduled 2021-08-26 BREAST CANCER [facility] Test 13:02:23 SCREENING [code = BREAST CANCER SCREENING] Future Scheduled 2021-08-26 COLONOSCOPY SCREENING [facility] Test 13:02:23 [code = COLONOSCOPY SCREENING] Future Scheduled 2021-08-26 Screening for [facility] Test 13:02:23 malignant neoplasm of lung (procedure) [code = [id number]] Future Scheduled 2021-08-26 SHINGLES VACCINES (#1) [facility] Test 13:02:23 [code = SHINGLES VACCINES (#1)] Future Scheduled 2021-08-26 COVID-19 VACCINE (3 - Me [facility] Test 13:02:23 Pfizer risk 4-dose series) [code = COVID-19 VACCINE (3 - Pfizer risk 4-dose series)] Future Scheduled 2021-08-26 65+ [facility] Test 13:02:23 VACCINE (4 of 4 - PPSV23) [code = 65+ PNEUMOCOCCAL VACCINE (4 of 4 - PPSV23)] Future Scheduled 2021-08-26 INFLUENZA VACCINE [facility] Test 13:02:23 [code = INFLUENZA VACCINE] Encounters Start End Encounter Admission Attending Care Care Encounter Source Date/Time Date/Time Type Type Clinicians Facility Department ID 2022-02-18 Outpatient [facility] [id number] [place] 14:30:[address] [place] [address] 2021-07-14 Outpatient SADIKOVIC, [facility] [id number] [place] 09:33:51 [facility] 2021-06-02 Outpatient HEMATPOUR, [facility] [id number] [place] 13:58:59 [facility] 2021-04-28 Outpatient HEMATPOUR, [facility] [id number] [place] 11:21:22 [facility] 2021-03-20 Emergency [facility] [id number] Univers 16:07:40 ity [facility] 2020-12-12 Outpatient HEMATPOUR, [facility] [id number] [place] 08:16:46 [facility] 2020-10-31 Outpatient HEMATPOUR, [facility] [id number] [place] 09:44:50 [facility] 2020-09-30 Outpatient HEMATPOUR, [facility] [id number] [place] 13:16:03 BEVERLY peterson 2022-05-20 2022-05-20 Telephone [facility] [id number] Univers 00:00:00 00:00:00 [facility] [id number] i [id number] [id number] [address] 2022-05-10 2022-05-10 Emergency [facility] [id number] Univers 10:30:00 16:31:00 HOME ity [facility] 2022-05-10 2022-05-10 Emergency [place], [place] [id number] Univers 10:30:00 16:31:00 [facility] [id number] [id number] [address] 2022-05-10 2022-05-10 Telephone [facility] [id number] Univers 00:00:00 00:00:00 [facility] [id number] i [id number] [address] 2022-05-08 2022-05-08 Emergency [facility] [id number] Univers 16:18:00 18:42:00 THERESA [facility] 2022-05-08 2022-05-08 [facility] [id number] Univers 16:18:00 18:42:00 Theresa BULLOCK [id number] [place] [id number] [address] 2022-05-07 2022-05-07 Telephone [facility] 1.2.840.114 [id number] Univers 00:00:00 00:00:00 [facility] [id number] [place] [id number] [address] 2022-05-062022-05-06 Emergency [facility] [id number] Univers 14:13:00 18:19:00 ANETTE barbosa [facility] 2022-05-06 2022-05-[address] [facility] [id number] Univers 14:13:00 18:19:00 Anette BULLOCK [id number] ity of [place] 4.2.7.2.686 [facility] [id number] [address] 2022-05-06 2022-05-06 Telephone JOSÉ ANTONIO Cardenas 1.2.840.114 [id number] Univers 00:00:00 00:00:00 [facility] [id number] i ty of CLINICS 4.2.7.2.686 [facility] [id number] [address] 2022-04-22 2022-04-22 Emergency [facility] [id number] Univers 13:55:00 17:00:00 PAULETTE [facility] 2022-04-22 2022-04-22 Emergency [facility] [id number] Univers 13:55:00 17:00:00 Paulette BULLOCK 350.1.13.10 i ty [facility] 4.2.7.2.686 [facility] [id number] [address] 2022-04-07 2022-04-07 Outpatient [facility] [id number] Univers 20:40:00 20:40:00 ATTENDING ity [facility] 2022-04-07 2022-04-07 Telephone Devin 1.2.840.8 [id number] Univers 00:00:00 00:00:00 Robbi Hairston 61294.1.1 i ty of 3.104.2.7 [place] .[id number] Medica l .8 [place] 2022-03-05 2022-03-05 [employer] Santiago Cardenas 1.2.840.1 [id number] Univers 13:45:00 14:00:00 Visit [facility] 46386.1.1 ity of 3.104.2.7 [place] .3.721412 Medica l .8 [place] 2022-03-05 2022-03-05 [place], [facility] [id number] Univers 13:00:00 13:30:00 Visit Santiago [facility] 350.1.13.10 i ty of CLINICS 4.2.7.2.686 Richi bach [id number] [facility] 089 [place] 2022-03-05 2022-03-05 Outpatient R [facility] [id number] Univers 13:00:00 13:00:00 [facility] 2022-02-26 2022-02-26 Outpatient R [facility] [id number] Univers 08:30:00 08:30:00 [facility] 2022-02-26 2022-02-26 Outpatient R [facility] [id number] Univers 08:30:00 08:30:00 [facility] 2022-02-17 2022-02-17 Transition Stevo, 1.2.840.1 [id number] Univers 00:00:00 00:00:00 of Care Isaias Arredondo 28296.1.1 it y of 3.104.2.7 [place] .3.559458 Medica l .8 [place] 2022-02-10 2022-02-16 Inpatient X MARIE, [facility] [id number] Univers 22:59:00 19:27:00 TOMY barbosa [facility] 2022-02-10 2022-02-16 Hospital Reilly Means 1.2.840.1 [id number] Univers 22:59:00 19:27:00 Encounter Ofe Shields 33405.1.1 ity of [place] 3[place]104.2.7 [place] .[id number] Medica l .8 [place] 2022-02-11 2022-02-11 Telephone [place], 1.2.840.0 [id number] Univers 00:00:00 00:00:00 [place] 74247.1.1 ity of 3.104.2.7 [place] .3.181202 Medica l .8 [place] 2022-02-10 2022-02-10 Travel 1.2.840.1 [id number] 9827 Univers 00:00:00 00:00:00 34591.1.1 350.1.13.10 ity of 3.104.2.7 [place].3.698 [place] .3.537996 084.8 Medica l .8 Branch 2022-01-30 2022-01-30 Telephone Ronald, 1.2.840.1 [id number] Univers 00:00:00 00:00:00 Santiago 98742.1.1 ity of 3.104.2.7 [place] .3.067516 Medica l .8 Branch 2022-01-06 2022-01-06 Orders Doctor FERMIN 1.2.840.114 [id number] Univers 00:00:00 00:00:00 Only Unassigned, JACKELINE 350.1.13.10 ity of [place] [facility] 4.2.7.2.686 Yomi as [phone] [facility] 009 [place] 2021-12-25 2021-12-25 Orders Doctor FERMIN 1.2.840.114 [id number] Univers 00:00:00 00:00:00 Only Unassigned, JACKELINE 350.1.13.10 ity of [place] [facility] 4.2.7.2.686 Yomi as [id number] [facility] 009 [place] 2021-12-12 2021-12-13 Emergency X Bill COLES [facility] ERT [id number] Univers 23:53:00 01:52:00 ity of [facility] 2021-12-12 2021-12-13 Emergency Bill Coles [facility] 1.2.840.114 95 [id number] Univers 23:53:00 01:52:00 Kiersten BULLOCK 350.1.13.10 i ty of [place] 4[place]2.7.2.686 [place] [facility] [id number] [facility] 084 Branch 2021-11-20 2021-11-20 [employer] Handic[employer] [facility] UNIVERSIT 1.2.840.114 [id number] Univers 09:45:00 10:00:00 Visit Santiago Cardenas [facility] 350.1.13.10 ity of CL[place]ICS 4.2.[place].2.[place] [phone] [facility] 316 Branch 2021-11-20 2021-11-20 Office JOSÉ ANTONIO Cardenas 1.2.205.681 0817 9084 Univers 08:30:00 09:00:00 Visit [facility] 350.1.13.10 i ty of CL[place]ICS 4.[place].2.[place] [id number] [facility] 089 Branch 2021-11-20 2021-11-20 Outpatient R [facility] [id number] Univers 08:30:00 08:30:00 [facility] 2021-11-20 2021-11-20 Outpatient R [facility] [id number] Univers 08:30:00 08:30:00 [facility] 2021-11-20 2021-11-20 Outpatient R [facility] [id number] Univers 08:30:00 08:30:00 [facility] 2021-11-20 2021-11-20 Outpatient R [facility] [id number] Univers 08:30:00 08:30:00 [facility] 2021-10-24 2021-10-24 Emergency [facility] [id number] Univers 16:27:00 22:26:[facility]-10-[facility] 2021-10-24 Emergency X WALKER [facility] ERT [id number] Univers 16:27:00 22:26:00 [facility] 2021-10-[facility] 2021-10-24 Emergency Reilly Means [facility] 1.2.840. 114 [id number] Univers 16:27:00 22:26:00 Charity Mcallister 350.1.13.10 it[place]2.7.2.686 [place] [id number] [facility] 084 Branch 2021-10-23 2021-10-24 Emergency [facility] [id number] Univers 20:22:00 02:57:00 ALROMA [facility] 2021-10-23 2021-10-24 Emergency [facility] 1.2.677.340 8394 [id number] Univers 20:22:00 02:57:00 Charity Bach [place] 350.1.13.10 ity of [place] 4.2.7.2.686 [place] [facility] [phone] [place] 778[place] 2021-09-07 2021-09-07 Outpatient R [facility], [facility] [id number] Univers 08:00:00 08:00:00 GADIEL familia o [facility] 2021-09-07 2021-09-07 Outpatient R SELF, [facility] [id number] Univers 08:00:00 08:00:00 GADIEL familia o [facility] 2021-08-21 2021-08-21 Outpatient R [facility] [id number] Univers 10:45:00 10:45:00 SANTIAGO barbosa [facility] 2021-08-21 2021-08-21 [employer] [place] Cardenas 1.2.840.1 [id number] Univers 10:45:00 10:45:00 Visit [facility] 82809.1.1 ity of 3.104.2.7 [place] .3.243973 Medica l .8 [place] 2021-08-21 2021-08-21 Office East, 1.2.840.9 [id number] 516 Univers 08:30:00 09:00:00 Visit Santiago 28968.1.1 ity of 3.104.2.7 [place] .3.078404 Medica l .8 [place] 2021-08-21 2021-08-21 Office East, [facility] 1.2.710.027 9754 8516 Univers 08:30:00 09:00:00 Visit Santiago [facility] 350.1.13.10 i ty of [facility] 4.2.7.2.686 [place] [id number] [facility] 089 [place] 2021-08-21 2021-08-21 Outpatient R [facility] [id number] Univers 08:30:00 08:30:00 SANTIAGO barbosa [facility] 2021-08-21 2021-08-21 Travel 1.2.840.1 1.2.609.180 2875 3865 Univers 00:00:00 00:00:00 22953.1.1 350.1.13.10 ity of 3.104.2.7 4.[place]7.3.698 [place] .3.210897 084.8 Medica l .8 [place] 2021-08-14 2021-08-14 Telephone East, 1.2.840.5 [id number] Univers 00:00:00 00:00:00 Santiago 76046.1.1 ity of 3.104.2.7 [place] .3.602927 Medica l .8 [place] 2021-08-13 2021-08-13 Telephone East, 1.2.840.1 [id number] Univers 00:00:00 00:00:00 Santiago 51355.1.1 ity of 3.104.2.7 [place] .3.959215 Medica l .8 [place] 2021-08-11 2021-08-11 Outpatient [facility] [id number] Univers 08:00:00 08:00:00 [facility] 2021-08-05 2021-08-05 Inpatient RAUL Lund, [facility] [id number] [facility] 05:24:00 05:24:00 Mike 31 [facility] 2021-07-20 2021-07-20 Outpatient [facility] [id number] Univers 10:00:00 10:00:00 [facility] 2021-07-14 2021-07-14 Office Pankaj, UTP 6400 1.2.840.114 13 [id number] [place] 08:45:00 09:34:01 Visit Hollymukul ROMERO 350.1.13.58 Health 9.2.7.2.686 [id number] 1 2021-07-09 2021-07-09 Telephone Kinjal, UTP 6400 1.2.840.114 [id number] [place] 00:00:00 00:00:[address] 350.1.13.58 Health 9.2.7.2.686 [id number] 1 2021-07-09 2021-07-09 Telephone Hematpour, UTP 6400 1.2.840.114 [id number] [place] 00:00:00 00:00:[address] 350.1.13.58 Health 9.2.7.2.686 [id number] 1 2021-07-03 2021-07-03 Outpatient R EAST, [facility] [id number] Univers 08:00:00 08:00:00 SANTIAGO barbosa [facility] 2021-06-17 2021-06-17 Inpatient RAUL Lund, [facility] INTE.02 [id number] [facility] 10:56:00 14:36:[address] [place] [address] 2021-06-15 2021-06-15 Outpatient R SELF, [facility] [id number] Univers 10:15:00 11:07:21 [facility] 2021-06-15 2021-06-15 Outpatient R SELF, [facility] [id number] Univers 10:15:00 10:15:00 [facility] 2021-06-15 2021-06-15 Outpatient R SELF, [facility] [id number] Univers 10:15:00 10:15:00 [facility] 2021-06-15 2021-06-15 Orders Doctor 1.2.840.3 [id number] Univers 00:00:00 00:00:00 Only Unassigned, 12402.1.1 ity of [place] 3.104.2.7 [place] .3.651401 Medica l .8 Branch 2021-06-15 2021-06-15 Travel 1.2.840.1 1.2.270.611 2004 7719 Univers 00:00:00 00:00:00 04078.1.1 350.1.13.10 ity of 3.104.2.7 4.[place].7.3.698 [place] .3.162843 084.8 Medica l .8 Branch 2021-06-11 2021-06-11 Refill [facility], UNIVERSIT 1.2.738.331 3211 9185 Univers 00:00:00 00:00:00 [facility] 350.1.13.10 i ty of CLINICS 4.2.[place].2.[place] [id number] [facility] 089 Branch 2021-06-11 2021-06-11 Refill East, 1.2.840.2 [id number] 185 Univers 00:00:00 00:00:00 Santiago 09188.1.1 ity of 3.104.2.7 [place] .3.220201 Medica l .8 Branch 2021-06-05 2021-06-05 Outpatient R [facility] [id number] Univers 09:00:00 09:00:00 SANTIAGO ity of [facility] 2021-06-02 2021-06-02 Telephone [facility], UNIVERSIT 1.2.840.114 [id number] Univers 00:00:00 00:00:00 [facility] 350.1.13.10 i ty of CLINICS 4.2.7.2.686 [place] [id number] [place] [address] Branch 2021-06-02 2021-06-02 Telephone East, 1.2.840.6 [id number] 903 [id number] Univers 00:00:00 00:00:00 Santiago 02014.1.1 ity of 3.104.2.7 [place] .3.666676 Medica l .8 Branch 2021-05-29 2021-05-29 Telephone East, 1.2.840.3 [id number] 902 [id number] Univers 00:00:00 00:00:00 Santiago 46369.1.1 ity of 3.104.2.7 [place] .3.353976 Medica l .8 Branch 2021-05-29 2021-05-29 Telephone East, 1.2.840.2 [id number] 902 [id number] Univers 00:00:00 00:00:00 Santiago 68903.1.1 ity of 3.104.2.7 [place] .3.735419 Medica l .8 Branch 2021-05-25 2021-05-25 Outpatient R SELF, [facility] [id number] Univers 08:00:00 08:00:00 GADIEL rodas [facility] 2021-04-29 2021-04-29 Outpatient R LALA, [facility] [id number] Univers 08:00:00 08:00:00 NIKOLAI familia [facility] 2021-04-28 2021-04-28 Telephone Jailyn, 1.2.840.0 [id number] 21 [id number] Methodi 00:00:00 00:00:[address] 3.430.2.7 Hospit a .3.651273 l .8 2021-04-28 2021-04-28 Telephone KIMBERLEY De Souza 6400 1.2.840.114 [id number] [place] 00:00:00 00:00:00 Maríacarrieamaris [address] 350.1.13.58 Health 9.2.7.2.686 [id number] 1 2021-03-31 2021-03-31 Orders Carol Ann, 1.2.840.1 [id number] 21 [id number] Methodi 00:00:00 00:00:00 Only Sarai Lieberman 58563.1.1 979 s t 3.430.2.7 Hospit a .3.765984 l .8 2021-03-30 2021-03-30 Outpatient R SELF, [facility] [id number] Univers 08:45:00 08:45:00 GADIEL rodas [facility] 2021-03-24 2021-03-24 Telephone Jailyn 1.2.840.0 [id number] 21 [id number] Methodi 00:00:00 00:00:[address] 3.430.2.7 Hospit a .3.862558 l .8 2021-02-13 2021-02-13 Telephone Ronald, 1.2.840.7 [id number] 876 [id number] Univers 00:00:00 00:00:00 Santiago 87618.1.1 ity of 3.104.2.7 [place] .3.354273 Medica l .8 Branch 2021-01-28 2021-01-28 Laure REEVES, [facility] [id number] Univers 08:45:00 09:37:00 NIKOLAI ity of [facility] 2021-01-28 2021-01-28 Travel 1.2.840.1 1.2.545.092 6619 9777 Univers 00:00:00 00:00:00 69723.1.1 350.1.13.10 ity of 3.104.2.7 4.[place].7.3.698 [place] .3.351921 084.8 Medica l .8 [place] 2021-01-19 2021-01-19 Telephone Prabhu, 1.2.840.1 [id number] 2100 [id number] Methodi 00:00:00 00:00:[address] 3.430.2.7 Hospit a .3.637824 l .8 2021-01-04 2021-01-04 Letter Shelia, 1.2.840.6 [id number] 696 Univers 00:00:00 00:00:00 (Out) Dagoberto H 38350.1.1 ity of 3.104.2.7 [place] .3.744455 Medica l .8 Branch 2021-01-04 2021-01-04 Letter Shelia, 1.2.840.6 [id number] 15005 696 Univers 00:00:00 00:00:00 (Out) Dagoberto H 88333.1.1 ity of 3.104.2.7 [place] .3.578736 Medica l .8 Branch 2021-01-03 2021-01-03 Letter Shelia, 1.2.840.0 [id number] 12657 790 Univers 00:00:00 00:00:00 (Out) Dagoberto H 85861.1.1 ity of 3.104.2.7 [place] .3.509800 Medica l .8 Branch 2021-01-03 2021-01-03 Letter Shelia, 1.2.840.7 [id number] 90732 790 Univers 00:00:00 00:00:00 (Out) Dagoberto Peterson 67628.1.1 ity of 3.104.2.7 [place] .3.576217 Medica l .8 [place] 2021-01-02 2021-01-02 Outpatient R [facility] [id number] Univers 13:40:00 13:40:00 ity of [facility] 2021-01-02 2021-01-02 Laboratory Cuba Franks 1.2.840.1 [id number] Univers 12:14:13 12:57:34 Only Lab, Ad[place]ob I 93687.1.1 ity of 3.104.2.7 [place] .3.458972 Medica l .8 [place] 2021-01-02 2021-01-02 Laboratory Cuba Franks 1.2.840.3 [id number] [id number] [id number] Univers 12:14:13 12:57:34 Only Lab, Adc Fam Pob I 96619.1.1 ity of 3.104.2.7 [place] .3.134995 Medica l .8 Branch 2021-01-02 2021-01-02 Travel 1.2.840.1 1.2.250.608 2698 2306 Univers 00:00:00 00:00:00 75015.1.1 350.1.13.10 ity of 3.104.2.7 4.2.7.3.698 [place] .3.501559 084.8 Medica l .8 [place] 2021-01-02 2021-01-02 Letter Doctor 1.2.840.6 [id number] 46888 948 Univers 00:00:00 00:00:00 (Out) Unassigned, 19908.1.1 ity of [place] 3.104.2.7 [place] .3.501632 Medica l .8 Branch 2021-01-02 2021-01-02 Letter Doctor 1.2.840.8 [id number] 20846 946 Univers 00:00:00 00:00:00 (Out) Unassigned, 28129.1.1 ity of [place] 3.104.2.7 [place] .3.338642 Medica l .8 Branch 2021-01-02 2021-01-02 Travel 1.2.840.1 1.2.276.684 9309 2306 Univers 00:00:00 00:00:00 83218.1.1 350.1.13.10 ity of 3.104.2.7 4.2.7.3.698 [place] .3.834144 084.8 Medica l .8 [place] 2021-01-02 2021-01-02 Letter Doctor 1.2.840.4 [id number] 85758 948 Univers 00:00:00 00:00:00 (Out) Unassigned, 78066.1.1 ity of [place] 3.104.2.7 [place] .3.341691 Medica l .8 [place] 2021-01-02 2021-01-02 Letter Doctor 1.2.840.8 [id number] 98571 946 Univers 00:00:00 00:00:00 (Out) Unassigned, 05949.1.1 ity of [place] 3.104.2.7 [place] .3.324710 Medica l .8 [place] 2020-12-22 2020-12-22 Telephone Beltran, 1.2.840.0 [id number] 862 50111 Univers 00:00:00 00:00:00 Robbi R 29753.1.1 i ty of 3.104.2.7 [place] .3.647971 Medica l .8 [place] 2020-12-22 2020-12-22 Telephone Beltran, 1.2.840.6 [id number] 862 02326 Univers 00:00:00 00:00:00 Eligionda R 36230.1.1 i ty of 3.104.2.7 [place] .3.881353 Medica l .8 [place] 2020-12-12 2020-12-12 Office Hematpour, [facility] 6400 1.2.840.114 12 [id number] 07:42:02 08:18:50 Visit Beverly RUIZ 350.1.13.58 9.2.7.2.686 [id number] 1 2020-12-12 2020-12-12 Office Hematpour, [facility] 6400 1.2.840.114 12 [id number] [place] 07:42:02 08:18:[address] 350.1.13.58 [facility] 9.2.7.2.686 [id number] 1 2020-12-09 2020-12-09 Telephone Carol Ann, 1.2.840.1 [id number] Methodi 00:00:00 00:00:00 Sarai Corbin. 27545.1.1 316 s t 3.430.2.7 Hospit a .3.907535 l .8 2020-12-08 2020-12-08 [facility], 1.2.840.1 [id number] 2100 [id number] Methodi 12:35:54 23:59:00 Encounter Ray 72803.1.[address] 3.430.2.7 Hospit a .3.722053 l .8 2020-12-08 2020-12-08 Lab [facility], 1.2.840.1 [id number] 20310 63382 Methodi 17:25:00 17:30:[address] 3.430.2.7 Hospit a .3.281790 l .8 2020-12-08 2020-12-08 [facility], 1.2.840.1 [id number] 89060 44496 Methodi 10:30:00 11:39:56 Visit Ray 29782.1.[address] 3.430.2.7 Hospit a .3.490994 l .8 2020-12-08 2020-12-08 Travel 1.2.840.1 1.2.065.856 5267 306472 Methodi 00:00:00 00:00:[address] 3.430.2.7 0.2.7.3.698 Ho spita .3.393519 084.8 l .8 2020-12-02 2020-12-02 [employer] Santiago Cardenas 1.2.840.1 [id number] [facility] [place] [facility] 10:20:06 10:36:19 Visit [facility] 03828.1.1 ity of 3.104.2.7 [place] .3.833788 Medica l .8 [place] 2020-12-02 2020-12-02 [employer] Santiago Cardenas 1.2.840.1 [id number] 316 [id number] Univers 10:20:06 10:36:19 Visit [facility] 27947.1.1 ity of 3.104.2.7 [place] .3.725953 Medica l .8 [place] 2020-12-02 2020-12-02 [employer] [facility] UNIVERSIT 1.2.840.114 8 [id number] 10:20:06 10:36:19 Visit [facility] 350.1.13.10 CLINICS 4.2.7.2.686 358.9167956 [facility] 2020-12-02 2020-12-02 Office Ronald, 1.2.840.9 [id number] 53148 528 Univers 08:31:37 09:01:37 Visit Santiago 00426.1.1 ity of 3.104.2.7 [place] .3.475463 Medica l .8 [place] 2020-12-02 2020-12-02 [facility] [id number] Univers 09:00:00 09:00:00 SANTIAGO barbosa of [facility] 2020-11-25 2020-11-25 Office Devin, 1.2.840.4 [id number] 46916 865 Univers 11:06:30 11:58:14 Visit Robbi Hairston 90364.1.1 i ty of 3.104.2.7 [place] .3.464129 Medica l .8 [place] 2020-11-25 2020-11-25 Office Beltran, 1.2.840.9 [id number] 21755 865 Univers 11:06:30 11:58:14 Visit Robbi Hairston 97443.1.1 i ty of 3.104.2.7 [place] .3.049127 Medica l .8 [place] 2020-11-25 2020-11-25 [facility] 1.2.840.114 [id number] 11:06:30 11:58:14 Visit Robbi Hairston [employer] 350.1.13.10 REGIONAL 4.2.7.2.686 MATERNAL 312.6796364 & CHILD [address] [place] [address] 2020-11-25 2020-11-25 Outpatient R [facility] [id number] Univers 11:00:00 11:00:00 ity of [facility] 2020-11-25 2020-11-25 Telephone Beltran, 1.2.840.2 [id number] 855 13203 Univers 00:00:00 00:00:00 Robbi Hairston 56463.1.1 i ty of 3.104.2.7 [place] .3.864125 Medica l .8 [place] 2020-11-25 2020-11-25 Refill East, 1.2.840.1 [id number] 66757 592 Univers 00:00:00 00:00:00 Santiago 64990.1.1 ity of 3.104.2.7 [place] .3.518521 Medica l .8 Branch 2020-11-25 2020-11-25 Travel 1.2.840.1 1.2.909.463 8531 0247 Univers 00:00:00 00:00:00 12286.1.1 350.1.13.10 ity of 3.104.2.7 4.2.7.3.698 [place] .3.395644 084.8 Medica l .8 [place] 2020-11-25 2020-11-25 Orders Doctor 1.2.840.0 [id number] 34343 064 Univers 00:00:00 00:00:00 Only Unassigned, 33933.1.1 ity of [place] 3.104.2.7 [place] .3.638035 Medica l .8 Branch 2020-11-25 2020-11-25 Telephone Devin, 1.2.840.4 [id number] 855 19567 Univers 00:00:00 00:00:00 Eligiomeredith Hairston 95623.1.1 i ty of 3.104.2.7 [place] .3.621448 Medica l .8 Branch 2020-11-25 2020-11-25 Refill East, 1.2.840.4 [id number] 55277 592 Univers 00:00:00 00:00:00 Santiago 58013.1.1 ity of 3.104.2.7 [place] .3.194177 Medica l .8 Branch 2020-11-25 2020-11-25 Travel 1.2.840.1 1.2.375.727 5230 0247 Univers 00:00:00 00:00:00 12946.1.1 350.1.13.10 ity of 3.104.2.7 4.2.7.3.698 [place] .3.279236 084.8 Medica l .8 Branch 2020-11-25 2020-11-25 Orders Doctor 1.2.840.2 [id number] 26280 064 Univers 00:00:00 00:00:00 Only Unassigned, 38568.1.1 ity of [place] 3.104.2.7 [place] .3.634872 Medica l .8 Branch 2020-11-25 2020-11-25 [facility] 1.2.349.657 5260 4592 00:00:00 00:00:00 [facility] 350.1.13.10 [facility] 4.2.7.2.686 [id number] 089 2020-11-25 2020-11-25 Telephone [facility] 1.2.882.590 8923 0821 00:00:00 00:00:00 Robbi Hairston [employer] 350.1.13.10 [facility] 4.2.7.2.686 MATERNAL 672.7975804 & CHILD [address] [place] [address] 2020-11-14 2020-11-14 Abstract Clark 1.2.840.1 [id number] 62567 57218 Methodi 00:00:00 00:00:[address] 3.430.2.7 Hospit a .3.540270 l .8 2020-11-14 2020-11-14 Telephone Clark 1.2.840.1 [id number] 2100 558651 Methodi 00:00:00 00:00:[address] 3.430.2.7 Hospit a .3.166805 l .8 2020-11-12 2020-11-12 Outpatient R RONALD [facility] [id number] 323 Univers 08:30:00 08:30:00 SANTIAGO barbosa of [facility] 2020-11-07 2020-11-07 Telephone Agustina Ortiz UTP 6400 1.2.840.11 4 [id number] [place] 00:00:00 00:00:[address] 350.1.13.58 Health 9.2.7.2.686 [id number] 1 2020-11-07 2020-11-07 Telephone Diana UTP 6400 1.2.840.114 124 [id number] 00:00:00 00:00:[address] 350.1.13.58 9.2.7.2.686 [id number] 1 2020-10-31 2020-10-31 Office HematpourKIMBERLEY 6400 1.2.840.114 12 [id number] [place] 07:54:00 09:45:[address] 350.1.13.58 Health 9.2.7.2.686 [id number] 1 2020-10-30 2020-10-30 Abstract Rody Maguire UTP 6400 1.2.840.1 14 [id number] [place] 00:00:00 00:00:[address] 350.1.13.58 Health 9.2.7.2.686 [id number] 1 2020-10-29 2020-10-29 Refill East, 1.2.840.6 [id number] 75436 400 Univers 00:00:00 00:00:00 Santiago 57342.1.1 ity of 3.104.2.7 [place] .3.764560 Medica l .8 Branch 2020-10-29 2020-10-29 Refill East, 1.2.840.2 [id number] 06385 400 Univers 00:00:00 00:00:00 Santiago 79926.1.1 ity of 3.104.2.7 [place] .3.128517 Medica l .8 Branch 2020-10-27 2020-10-27 Telephone Cadea, 1.2.840.1 [id number] 21 [id number] Methodi 00:00:00 00:00:[address] 3.430.2.7 Hospit a .3.307055 l .8 2020-10-24 2020-10-24 Telephone Clark, 1.2.840.1 [id number] 2100 064510 Methodi 00:00:00 00:00:[address] 3.430.2.7 Hospit a .3.248647 l .8 2020-10-22 2020-10-22 Outpatient R SELF, [facility] [id number] Univers 13:00:00 13:00:00 GADIEL vogel [facility] 2020-10-22 2020-10-22 Travel 1.2.840.1 1.2.420.724 [id number] Univers 00:00:00 00:00:00 17288.1.1 350.1.13.10 ity of 3.104.2.[place] .3.216518 084.8 Medica l .8 [place] 2020-10-22 2020-10-22 Travel 1.2.840.1 1.2.580.070 1096 [id number] Univers 00:00:00 00:00:00 38155.1.1 350.1.13.10 ity of 3.104.2.[place] .3.702657 084.8 Medica l .8 [place] 2020-10-13 2020-10-13 Outpatient R SELF, [facility] [id number] Univers 08:45:00 08:45:00 GADIEL vogel [facility] 2020-10-06 2020-10-12 Telemedici Chihara, 1.2.840.1 [id number] Methodi 15:30:00 00:08:46 ne Ray 35185.1.[address] 3.430.2.7 Hospit a .3.672220 l .8 2020-09-30 2020-09-30 [facility], 1.2.840.2 [id number] Methodi 00:00:00 00:00:[address] 3.430.2.7 Hospit a .3.905565 l .8 2020-09-21 2020-09-21 [facility] 1.2.840.1 1.2.577.713 3206 [id number] Methodi 00:00:00 00:00:[address] 3.430.2.7 0.2.7.3.698 Ho spita .3.815675 084.8 l .8 2020-09-06 2020-09-06 [facility] 1.2.840.1 [id number] Methodi 17:42:30 23:59:[address] 3.430.2.7 Hospit a .3.347452 l .8 2020-09-06 2020-09-06 [facility], 1.2.840.1 [id number] [id number] Methodi 16:50:00 17:41:00 Encounter Ray [address]40.1.[address] 3.430.2.7 Hospit a .3.149802 l .8 2020-09-05 2020-09-05 [facility], 1.2.840.1 [id number] [id number] Methodi 09:17:00 19:45:00 Encounter Ray [address].1.[address] 3.430.2.7 Hospit a .3.945190 l .8 2020-09-05 2020-09-05 [facility], 1.2.840.1 [id number] Methodi 11:30:00 13:15:[address] 3.430.2.7 Hospit a .3.734476 l .8 2020-09-05 2020-09-05 Anesthesia Remigio, 1.2.840.1 [id number] Methodi 11:27:00 12:20:00 Event Kirit 16534.1.1 243 s t V. 3.430.2.7 Hospit a .3.325952 l .8 2020-09-05 2020-09-05 Travel 1.2.840.1 1.2.031.022 [id number] [id number] Methodi 00:00:00 00:00:[address] 3.430.2.7 0.2.7.3.698 Ho spita .3.194861 084.8 l .8 2020-09-04 2020-09-04 Telephone Meisen[place], 1.2.840.1 [id number] Methodi 00:00:00 00:00:00 Sarai Lieberman 94759.1.1 762 s t 3.430.2.7 Hospit a .3.449788 l .8 2020-09-02 2020-09-02 Telephone [facility], 1.2.840.4 [id number] Methodi 00:00:00 00:00:00 Sarai Lieberman 75115.1.1 344 s t 3.430.2.7 Hospit a .3.396641 l .8 2020-08-29 2020-08-30 Bedded [facility] [id number] 10:20:[facility] 14:10:00 Outpatient r Marty 00 l [facility] 2020-08-29 2020-08-30 Outpatient [facility]EMATP[facility], [facility] CAR [address] [facility] 05:20:00 09:10:00 BEVERLY 2020-08-06 2020-08-06 Office Ronald, 1.2.840.6 [id number] [facility] 08:03:23 09:17:49 Visit Santiago 22488.1.1 ity of 3.104.2.7 [place] .3.252062 Medica l .8 Branch 2020-08-06 2020-08-06 Outpatient R RONALD [facility] [id number] [facility] 08:30:00 08:30:00 SANTIAGO [facility] 2020-07-14 2020-07-14 Outpatient R SELF, [facility] [id number] Univers 09:30:00 09:30:00 GADIEL rodas [facility] 2020-07-14 2020-07-14 Travel 1.2.840.1 1.2.778.711 3036 [id number] Univers 00:00:00 00:00:00 78656.1.1 350.1.13.10 ity of 3.104.2.7 [place].3.[place] .3.004879 084.8 Medica l .8 [place] 2020-07-14 2020-07-14 Orders Doctor 1.2.840.5 [id number] Univers 00:00:00 00:00:00 Only Unassigned, 95038.1.1 ity of [place] 3.104.2.7 [place] .3.958652 Medica l .8 [place] 2020-06-16 2020-06-16 Outpatient R SELF, [facility] [id number] Univers 08:00:00 08:00:00 GADIEL rodas [facility] 2020-06-06 2020-06-06 Telephone [place], 1.2.840.6 [id number] Univers 00:00:00 00:00:00 Santiago 46054.1.1 ity of 3.104.2.7 [place] .3.969232 Medica [facility] .8 [place] 2020-06-04 2020-06-04 [employer] Santiago Cardenas 1.2.840.1 [id number] Univers 09:31:58 09:40:12 Visit [facility] 38902.1.1 ity of 3.104.2.7 [place] .3.765022 Medica l .8 [place] 2020-06-04 2020-06-04 Office JOSÉ ANTONIO Cardenas 1.2.386.604 [id number] Univers 08:13:41 09:28:25 Visit [place] [facility] 350.1.13.10 i ty of [place] [id number] [facility] 089 [place] 2020-06-04 2020-06-04 Outpatient R EAST, [facility] [id number] Univers 08:30:00 08:30:00 SANTIAGO ity [facility] 2020-06-04 2020-06-04 Orders Doctor 1.2.840.7 [id number] Univers 00:00:00 00:00:00 Only Unassigned, 13401.1.1 ity of [place] 3.104.2.7 [place] .3.441852 Medica l .8 [place] 2020-05-19 2020-05-19 Telephone East, 1.2.840.3 [id number] Univers 00:00:00 00:00:00 Santiago 29240.1.1 ity of 3.104.2.7 [place] .3.771985 Medica l .8 [place] 2020-04-24 2020-04-24 Telephone East, 1.2.840.9 [id number] Univers 00:00:00 00:00:00 Santiago 84474.1.1 ity of 3.104.2.7 [place] .3.584139 Medica l .8 [place] 2020-04-14 2020-04-14 [facility] [id number] Univers 09:00:00 09:00:00 SANTIAGO ity [facility] 2020-04-14 2020-04-14 Telephone East, 1.2.840.8 [id number] Univers 00:00:00 00:00:00 Santiago 45708.1.1 ity of 3.104.2.7 [place] .3.589400 Medica l .8 [place] 2020-03-31 2020-03-31 Outpatient R EAST, [facility] [id number] Univers 08:30:00 08:30:00 SANTIAGO barbosa [facility] 2020-03-03 2020-03-03 Outpatient R SELF, [facility] [id number] Univers 08:00:00 08:00:00 GADIEL vogel f [facility] 2020-03-03 2020-03-03 Outpatient R SELF, [facility] [id number] Univers 08:00:00 08:00:00 GADIEL maciely o f [facility] 2020-03-03 2020-03-03 Travel 1.2.840.1 1.2.817.730 [id number] Univers 00:00:00 00:00:00 13205.1.1 350.1.13.10 ity of 3.104.2.7 [place].3.698 [place]36[place] 084.8 Medica l .8 [place] 2020-02-06 2020-02-06 Telephone East, 1.2.840.5 [id number] Univers 00:00:00 00:00:00 Santiago 19431.1.1 ity of 3.104.2.7 [place] .3.229708 Medica l .8 [place] 2020-01-26 2020-01-26 Emergency Caridad, 1.2.840.4 [id number] Univers 10:03:00 13:05:00 Cynise 46114.1.1 ity of 3.104.2.7 [place] .3.363071 Medica l .8 [place] 2020-01-26 2020-01-26 Travel 1.2.840.1 1.2.034.921 [id number] Univers 00:00:00 00:00:00 37757.1.1 350.1.13.10 ity of 3.104.2.7 4[place]7.3.698 [place]3.2388[place] 084.8 Medica l .8 [place] 2020-01-25 2020-01-25 Outpatient R [facility] [id number] Univers 08:30:00 08:30:00 SANTIAGO ity of [facility] 2020-01-25 2020-01-25 Telemedici East, 1.2.840.9 [id number] Univers 07:36:49 08:06:49 ne Visit Santiago 40773.1.1 ity of 3.104.2.7 [place] .3.020770 Medica l .8 [place] 2020-01-16 2020-01-16 Outpatient R [facility] [id number] Univers 08:00:00 08:00:00 SANTIAGO ity [facility] 2020-01-16 2020-01-16 Telephone East, 1.2.840.9 [id number] Univers 00:00:00 00:00:00 Santiago 89998.1.1 ity of 3.104.2.7 [place] .3.019029 Medica l .8 [place] 2020-01-14 2020-01-14 Outpatient R SELF, [facility] [id number] Univers 08:00:00 08:00:00 GADIEL rodas [facility] 2019-12-31 2019-12-31 Outpatient R SELF, [facility] [id number] Univers 08:45:00 08:45:00 GADIELKEI rodas [facility] 2019-10-17 2019-10-17 Outpatient R EAST, [facility] [id number] Univers 08:30:00 08:30:00 SANTIAGO barbosa [facility] 2019-10-12 2019-10-12 Outpatient R EAST, [facility] [id number] Univers 13:00:00 13:00:00 [facility]-10-12 2019-10-12 Telemedici East, 1.2.840.7 [id number] Univers 07:38:30 08:08:30 ne Visit Santiago 88198.1.1 ity of 3.104.2.7 [place] .3.066353 Medica l [address] [place] [address] 2019-10-08 2019-10-08 Outpatient R SELF, [facility] [id number] Univers 10:15:00 10:15:00 GADIEL macielcharlie lela clark [facility] 2019-10-03 2019-10-03 Case Assman, 1.2.840.3 [id number] Univers 00:00:00 00:00:00 Management Michael Corbin 50604.1.1 i ty of 3.104.2.7 [place] .3.560463 Medica l .8 [place] 2019-09-27 2019-09-27 Telephone East, 1.2.840.4 [id number] Univers 00:00:00 00:00:00 Santiago 20042.1.1 ity of 3.104.2.7 [place] .3.403750 Medica l .8 [place] 2019-09-04 2019-09-04 Refill East, 1.2.840.7 [id number] Univers 00:00:00 00:00:00 Santiago 65184.1.1 ity of 3.104.2.7 [place] .3.275419 Medica l .8 [place] 2019-07-24 2019-07-24 Outpatient R EAST, [facility] [id number] Univers 08:30:00 08:30:00 SANTIAGO barbosa [facility] 2019-07-17 2019-07-17 Outpatient R EAST, [facility] [id number] Univers 10:00:00 10:00:00 SANTIAGO barbosa [facility] 2019-06-15 2019-06-15 Telephone East, 1.2.840.7 [id number] Univers 00:00:00 00:00:00 Santiago 16877.1.1 ity of 3.104.2.7 [place] .3.528884 Medica l [address] [place] [address] 2019-06-13 2019-06-13 Telephone Team, [facility] 1.2.840.6 [id number] Univers 00:00:00 00:00:00 Health 01931.1.1 [place] .3.818130 [place] .8 [place] 2019-05-10 2019-05-10 Refill [facility], 1.2.840.2 [id number] Univers 00:00:00 00:00:00 Santiago 32979.1.1 ity of 3.104.2.7 [place] .3.764206 Medica l .8 [place] 2019-05-09 2019-05-09 Refill [facility], 1.2.840.2 [id number] Univers 00:00:00 00:00:00 Santiago 35005.1.1 ity of 3.104.2.7 [place] .3.867318 Medica l .8 [place] 2019-04-30 2019-04-30 Outpatient R SELF, [facility] [id number] Univers 10:15:00 10:33:05 GADIEL barbosa o f [facility] 2019-04-18 2019-04-18 [employer] [place] Cardenas 1.2.840.1 [id number] Univers 10:00:39 10:44:31 Visit [facility] 69120.1.1 ity of 3.104.2.7 [place] .3.771191 Medica l .8 [place] 2019-04-18 2019-04-18 Outpatient R RONALD [facility] [id number] Univers 10:00:00 10:44:31 SANTIAGO ity of [facility] 2019-04-18 2019-04-18 Office East, 1.2.840.3 [id number] Univers 08:27:44 09:53:27 Visit Santiago 75027.1.1 ity of 3.104.2.7 [place] .3.267097 Medica l .8 [place] 2019-04-18 2019-04-18 Orders Doctor 1.2.840.6 [id number] Univers 00:00:00 00:00:00 Only Unassigned, 04792.1.1 ity of [place] 3.104.2.7 [place] .3.835693 Medica l .8 [place] 2019-04-11 2019-04-11 Refill Ronald, 1.2.840.0 [id number] Univers 00:00:00 00:00:00 [place] 17397.1.1 ity of 3.104.2.7 [place] .3.587758 Medica l .8 [place] 2019-04-09 2019-04-09 Refill Ronald, 1.2.840.0 [id number] Univers 00:00:00 00:00:00 [place] 64152.1.1 ity of 3.104.2.7 [place] .3.055480 Medica l .8 [place] 2019-04-03 2019-04-03 Telephone Team, [facility] 1.2.840.7 [id number] Univers 00:00:00 00:00:00 Health 08496.1.1 [place] .3.148008 [place] .8 [place] 2019-03-27 2019-03-27 Telephone Self, 1.2.840.7 [id number] Univers 00:00:00 00:00:00 Gadiel 35949.1.1 ity of 3.104.2.7 [place] .3.364043 Medica l .8 [place] 2019-01-17 2019-01-17 Office Ronald, 1.2.840.2 [id number] Univers 07:37:21 10:32:51 Visit Santiago 63022.1.1 ity of 3.104.2.7 [place] .3.491418 Medica l .8 [place] 2019-01-04 2019-01-12 Office Eveline Hansen 1.2.840.0 [id number] Univers 11:19:32 11:08:05 Visit Mariela 59969.1.1 ity of 3.104.2.7 [place] .3.842093 Medica l .8 [place] 2019-01-10 2019-01-10 Telephone Stanislav, 1.2.840.6 [id number] Univers 00:00:00 00:00:00 Eladio Inman 69931.1.1 ity of 3.104.2.7 [place] .3.512695 Medica l .8 [place] 2018-12-18 2018-12-18 Office Alexisryan, 1.2.840.6 [id number] Univers 08:48:45 09:13:43 Visit Leyda 08304.1.1 it y of 3.104.2.7 [place] .3.357342 Medica l .8 [place] 2018-10-30 2018-10-30 Telephone [facility], 1.2.840.5 [id number] Univers 00:00:00 00:00:00 [place] 23092.1.1 ity of 3.104.2.7 [place] .3.574117 Medica l .8 [place] 2018-10-23 2018-10-23 Orders Doctor 1.2.840.1 [id number] Univers 00:00:00 00:00:00 Only Unassigned, 59787.1.1 ity of [place] 3.104.2.7 [place] .3.258027 Medica l .8 [place] 2018-10-23 2018-10-23 Nurse Selvin, 1.2.840.0 [id number] Univers 00:00:00 00:00:00 Triage Stefanie 51470.1.1 ity of 3.104.2.7 [place] .3.216586 Medica l .8 [place] 2018-10-23 2018-10-23 Telephone Self, 1.2.840.5 [id number] Univers 00:00:00 00:00:00 Gadiel 34994.1.1 ity of 3.104.2.7 [place] .3.480187 Medica l .8 [place] 2018-10-20 2018-10-20 Telephone Self, 1.2.840.5 [id number] Univers 00:00:00 00:00:00 Gadiel 52464.1.1 ity of 3.104.2.7 [place] .3.625491 Medica l .8 [place] Results Test Description Test Time Test Comments Results Result Comments Source COMP. METABOLIC PANEL (48153) 2022-05-06 22:42:55 Test Item Value Reference Range Interpretation Comme nts NA (test code = 4803263449) 137 mmol/L 135-145 K (test code = 6577155179) 3.2 mmol/L 3.5-5.0 L CL (test code = 2424488088) 100 mmol/L 98-108 CO2 TOTAL (test code = 3806180458) 23 mmol/L 23-31 AGAP (test code = 9181517574) 2-16 BUN (test code = 6349081601) 41 mg/dL 7-23 H GLUCOSE (test code = 5844012137) 98 mg/dL 70-110 CREATININE (test code = 1.55 mg/dL 0.50-1.04 H 8954736037) TOTAL BILI (test code = 0.8 mg/dL 0.1-1.2 2167411733) CALCIUM (test code = 7551696144) 8.3 mg/dL 8.6-10.6 L T PROTEIN (test code = 7250023289) 6.9 g/dL 6.3-8.2 ALBUMIN (test code = 3694668761) 3.9 g/dL 3.5-5.0 ALK PHOS (test code = 5899433437) 89 U/L 34-122 ALTv (test code = 1742-6) 101 U/L 5-35 H AST(SGOT) (test code = 3309705139) 203 U/L 13-40 H eGFR (test code = 9669198791) mL/min/1.73m2 KYLE (test code = KYLE) Association [...] tests). Lab Interpretation (test code = Abnormal 41729-9) [facility] WITH [id number] 22:33:52 Test Item Value Reference Range Interpretation Comments WBC (test code = See_Comment L [Automated 4872-2) message] The sy stem which generated this result transmitted reference range : 4.30 - 11.10 10*3/?L. The reference range was not used to interpret this result as normal/abnormal . RBC (test code = See_Comment [Automated 909-8) message] The sy stem which generated this [...] RDW-SD (test code = 46.3 fL 39.0-49.9 43424-1) RDW-CV (test code = 13.5 % 12.0-15.5 788-0) PLT (test code = See_Comment L [Automated 777-3) message] The sy stem which generated this result transmitted reference range : 166 - 358 10*3/ ?L. The reference r abbey was not used to interpret this result as normal/abnormal . MPV (test code = 9.5 fL 9.5-12.9 82485-0) NRBC/100 WBC (test See_Comment [Automat ed code = 4657250496) message] The system which generated this result transmitted reference range : 0.0 - 10.0 /100 WBCs. The refer ence range was not u sed to interpret th is result as normal/abnormal . NRBC x10^3 (test code See_Comment [Auto mated = 0282561041) message] The s ystem which generated this result transmitted reference range : 10*3/?L. The reference range was not used to interpret this result as normal/abnormal . GRAN MAT (NEUT) % 58.3 % (test code = 770-8) IMM GRAN % (test code 0.80 % = 6644740457) LYMPH % (test code = 28.1 % 736-9) MONO % (test code = 12.0 % 5905-5) EOS % (test code = 0.5 % 713-8) BASO % (test code = 0.3 % 706-2) GRAN MAT x10^3(ANC) 2.29 10*3/uL 1.88-7.09 (test code = 1325172168) IMM GRAN x10^3 (test 0.03 10*3/uL 0.00-0.06 code = 6053471594) LYMPH x10^3 (test code 1.10 10*3/uL 1.32-3.29 L = 731-0) MONO x10^3 (test code 0.47 10*3/uL 0.33-0.92 = 742-7) EOS x10^3 (test code = 0.03-0.39 L 711-2) BASO x10^3 (test code 0.01-0.07 = 704-7) Lab Interpretation Abnormal (test code = 84446-5) [facility] METABOLIC PANEL (NA, K, CL, CO2, GLUCOSE, BUN, CREATININE, CA)2022-04-22 21:43:42 Test Item Value Reference Range Interpretation Comments NA (test code = 142 mmol/L 135-145 8282006010) K (test code = 3.5 mmol/L 3.5-5.0 7474629929) CL (test code = 106 mmol/L 98-108 8324008594) CO2 TOTAL (test code = 26 mmol/L 23-31 1831225572) AGAP (test code = 2-16 4716347808) BUN (test code = 29 mg/dL 7-23 H 0327119776) GLUCOSE (test code = 84 mg/dL 70-110 2943188004) CREATININE (test code = 1.16 mg/dL 0.50-1.04 H 5550303235) CALCIUM (test code = 8.2 mg/dL 8.6-10.6 L 9521065393) eGFR (test code = mL/min/1.73m2 9693389206) KYLE (test code = KYLE) Association of [...] tests). Lab Interpretation Abnormal (test code = 86501-2) [facility] WITH [id number] 21:33:01 Test Item Value Reference Range Interpretation [...] (test code = 50.7 fL 39.0-49.9 H 85238-5) RDW-CV (test code = 14.6 % 12.0-15.5 788-0) PLT (test code = See_Comment L [Automated 777-3) message] The sy stem which generated this result transmitted reference range : 166 - 358 10*3/ ?L. The reference r abbey was not used to interpret this result as normal/abnormal . MPV (test code = 8.8 fL 9.5-12.9 L 83124-7) NRBC/100 WBC (test See_Comment [Automat ed code = 3101445669) message] The system which generated this result transmitted reference range : 0.0 - 10.0 /100 WBCs. The refer ence range was not u sed to interpret th is result as normal/abnormal . NRBC x10^3 (test code See_Comment [Auto mated = 0189133181) message] The s ystem which generated this result transmitted reference range : 10*3/?L. The reference range was not used to interpret this result as normal/abnormal . GRAN MAT (NEUT) % 70.9 % (test code = 770-8) IMM GRAN % (test code 0.50 % = 6922783273) LYMPH % (test code = 17.4 % 736-9) MONO % (test code = 9.0 % 5905-5) EOS % (test code = 1.7 % 713-8) BASO % (test code = 0.5 % 706-2) GRAN MAT x10^3(ANC) 4.60 10*3/uL 1.88-7.09 (test code = 8064365111) IMM GRAN x10^3 (test 0.03 10*3/uL 0.00-0.06 code = 9799759133) LYMPH x10^3 (test code 1.13 10*3/uL 1.32-3.29 L = 731-0) MONO x10^3 (test code 0.58 10*3/uL 0.33-0.92 = 742-7) EOS x10^3 (test code = 0.11 10*3/uL 0.03-0.39 711-2) BASO x10^3 (test code 0.03 10*3/uL 0.01-0.07 = 704-7) Lab Interpretation Abnormal (test code = 91187-9) [facility] CULTURE [id number] 06:01:07 Test Item Value Reference Range Interpretation Comments Blood Culture-Aerobic No organisms No growth Previo us (test code = 33880-5) isolated prelim inary verified result was Culture [...] Culture-Anaerobic isolated preliminar y (test code = 53879-7) verifi ed result was Culture In Progress [...] CDT Lab Interpretation Normal (test code = 15808-1) [facility] CULTURE [id number] 06:01:07 Test Item Value Reference Range Interpretation Comments Blood Culture-Aerobic No organisms No growth Previo us (test code = 19105-4) isolated prelim inary verified result was Culture [...] Culture-Anaerobic isolated preliminar y (test code = 20163-1) verifi ed result was Culture In Progress [...] CDT Lab Interpretation Normal (test code = 01047-9) [facility] [id number] 06:01:07 Test Item Value Reference Range Interpretation Comments Blood Culture-Aerobic No organisms No growth Previo us (test code = 18501-8) isolated prelim inary verified result was Culture [...] Culture-Anaerobic isolated preliminar y (test code = 54953-7) verifi ed result was Culture In Progress [...] CDT Lab Interpretation Normal (test code = 90199-2) [id number] 10:49:10 Test Item Value Reference Range Interpretation Comments NT-proBNP (test code 2660 pg/mL See_Comment H [Autom ated = 0631303675) message] The system which generated this result transmitted reference range : <=125. The reference range was not used to interpret this result as normal/abnormal . KYLE (test code = KYLE) Biotin has been reported to cause a negative bias, interpret results relative to patient's use of biotin. Lab Interpretation Abnormal (test code = 96058-5) [id number] 10:49:10 Test Item Value Reference Range Interpretation Comments NT-proBNP (test code 2660 pg/mL See_Comment H [Autom ated = 2052816049) message] The system which generated this result transmitted reference range : <=125. The reference range was not used to interpret this result as normal/abnormal . KYLE (test code = KYLE) Biotin has been reported to cause a negative bias, interpret results relative to patient's use of biotin. Lab Interpretation Abnormal (test code = 25463-8) [facility] METABOLIC PANEL (NA, K, CL, CO2, GLUCOSE, BUN, CREATININE, CA)2022-02-15 10:44:07 Test Item Value Reference Range Interpretation Comments NA (test code = 134 mmol/L 135-145 L 1055601675) K (test code = 3.2 mmol/L 3.5-5 L 7732090461) CL (test code = 98 mmol/L 98-108 3880626161) CO2 TOTAL (test code = 27 mmol/L 23-31 2746112352) AGAP (test code = 2-16 3167568547) BUN (test code = 19 mg/dL 7-23 9780143029) GLUCOSE (test code = 102 mg/dL 70-110 8374556563) CREATININE (test code = 0.95 mg/dL 0.5-1.04 5299431492) CALCIUM (test code = 8.5 mg/dL 8.6-10.6 L 6077101412) eGFR (test code = mL/min/1.73m2 6328253469) KYLE (test code = KYLE) Association of [...] tests). Lab Interpretation Abnormal (test code = 11157-7) [facility] 10:44:07 Test Item Value Reference Range Interpretation Comments MAGNESIUM (test code = 4004451211) 1.8 mg/dL 1.7-2.4 Lab Interpretation (test code = Normal 06740-4) [facility] 10:44[facility]07 Test Item Value Reference Range Interpretation Comments MAGNESIUM (test code = 1778096629) 1.8 mg/dL 1.7-2.4 Lab Interpretation (test code = Normal 81859-9) [facility] (NA, K, CL, CO2, GLUCOSE, BUN, CREATININE, CA)2022-02-15 10:44:07 Test Item Value Reference Range Interpretation Comments NA (test code = 134 mmol/L 135-145 L 4461054751) K (test code = 3.2 mmol/L 3.5-5.0 L 6648584557) CL (test code = 98 mmol/L 98-108 8767895574) CO2 TOTAL (test code = 27 mmol/L 23-31 8714214956) AGAP (test code = 2-16 8347699833) BUN (test code = 19 mg/dL 7-23 6746199161) GLUCOSE (test code = 102 mg/dL 70-110 2822865310) CREATININE (test code = 0.95 mg/dL 0.50-1.04 3599429888) CALCIUM (test code = 8.5 mg/dL 8.6-10.6 L 6571977004) eGFR (test code = mL/min/1.73m2 9192667320) KYLE (test code = KYLE) Association of [...] tests). Lab Interpretation Abnormal (test code = 04747-0) [facility] WITH [id number] 10:12:06 Test Item Value Reference Range Interpretation Comments WBC (test code = See_Comment L [Automated 4590-2) message] The sy stem which generated this [...] RDW-SD (test code = 47.8 fL 39-49.9 42206-6) RDW-CV (test code = 15.2 % 12-15.5 788-0) PLT (test code = See_Comment L [Automated 777-3) message] The sy stem which generated this result transmitted reference range : 166 - 358 10*3/ ?L. The reference r abbey was not used to interpret this result as normal/abnormal . MPV (test code = 8.9 fL 9.5-12.9 L 97706-1) NRBC/100 WBC (test See_Comment [Automat ed code = 5766466931) message] The system which generated this result transmitted reference range : 0.0 - 10.0 /100 WBCs. The refer ence range was not u sed to interpret th is result as normal/abnormal . NRBC x10^3 (test code See_Comment [Auto mated = 5313286435) message] The s ystem which generated this result transmitted reference range : 10*3/?L. The reference range was not used to interpret this result as normal/abnormal . GRAN MAT (NEUT) % 65.9 % (test code = 770-8) IMM GRAN % (test code 0.30 % = 2912672396) LYMPH % (test code = 21.0 % 736-9) MONO % (test code = 10.1 % 5905-5) EOS % (test code = 2.4 % 713-8) BASO % (test code = 0.3 % 706-2) GRAN MAT x10^3(ANC) 2.49 10*3/uL 1.88-7.09 (test code = 9386926586) IMM GRAN x10^3 (test 0-0.06 code = 5823058128) LYMPH x10^3 (test code 0.79 10*3/uL 1.32-3.29 L = 731-0) MONO x10^3 (test code 0.38 10*3/uL 0.33-0.92 = 742-7) EOS x10^3 (test code = 0.09 10*3/uL 0.03-0.39 711-2) BASO x10^3 (test code 0.01-0.07 = 704-7) Lab Interpretation Abnormal (test code = 08653-3) [facility] WITH [id number] 10:12:06 Test Item Value Reference Range Interpretation [...] RDW-SD (test code = 47.8 fL 39.0-49.9 58304-0) RDW-CV (test code = 15.2 % 12.0-15.5 788-0) PLT (test code = See_Comment L [Automated 777-3) message] The sy stem which generated this result transmitted reference range : 166 - 358 10*3/ ?L. The reference r abbey was not used to interpret this result as normal/abnormal . MPV (test code = 8.9 fL 9.5-12.9 L 50805-0) NRBC/100 WBC (test See_Comment [Automat ed code = 8666177412) message] The system which generated this result transmitted reference range : 0.0 - 10.0 /100 WBCs. The refer ence range was not u sed to interpret th is result as normal/abnormal . NRBC x10^3 (test code See_Comment [Auto mated = 0060289650) message] The s ystem which generated this result transmitted reference range : 10*3/?L. The reference range was not used to interpret this result as normal/abnormal . GRAN MAT (NEUT) % 65.9 % (test code = 770-8) IMM GRAN % (test code 0.30 % = 3823125455) LYMPH % (test code = 21.0 % 736-9) MONO % (test code = 10.1 % 5905-5) EOS % (test code = 2.4 % 713-8) BASO % (test code = 0.3 % 706-2) GRAN MAT x10^3(ANC) 2.49 10*3/uL 1.88-7.09 (test code = [id number]) IMM GRAN x10^3 (test 0.00-0.06 code = 1525226590) LYMPH x10^3 (test code 0.79 10*3/uL 1.32-3.29 L = 731-0) MONO x10^3 (test code 0.38 10*3/uL 0.33-0.92 = 742-7) EOS x10^3 (test code = 0.09 10*3/uL 0.03-0.39 711-2) BASO x10^3 (test code 0.01-0.07 = 704-7) Lab Interpretation Abnormal (test code = 46462-4) [facility] WITH [id number] 11:18:28 Test Item Value Reference Range Interpretation Comments WBC (test code = See_Comment L [Automated 4790-2) message] The sy stem which generated this [...] RDW-SD (test code = 49.5 fL 39-49.9 32557-5) RDW-CV (test code = 15.5 % 12-15.5 788-0) PLT (test code = See_Comment L [Automated 777-3) message] The sy stem which generated this result transmitted reference range : 166 - 358 10*3/ ?L. The reference r abbey was not used to interpret this result as normal/abnormal . MPV (test code = 11.4 fL 9.5-12.9 32256-7) IPF % (test code = 8.7 % 1.3-7.7 H Platelet count [id number]) measured by fluorescence method. NRBC/100 WBC (test See_Comment [Automat ed code = [id number]) message] The system which generated this result transmitted reference range : 0.0 - 10.0 /100 WBCs. The refer ence range was not u sed to interpret th is result as normal/abnormal . NRBC x10^3 (test code See_Comment [Auto mated = [id number]) message] The s ystem which generated this result transmitted reference range : 10*3/?L. The reference range was not used to interpret this result as normal/abnormal . GRAN MAT (NEUT) % 62.0 % (test code = 770-8) IMM GRAN % (test code 0.80 % = [id number]) LYMPH % (test code = 22.2 % 736-9) MONO % (test code = 9.6 % 5905-5) EOS % (test code = 5.1 % 713-8) BASO % (test code = 0.3 % 706-2) GRAN MAT x10^3(ANC) 2.21 10*3/uL 1.88-7.09 (test code = [id number]) IMM GRAN x10^3 (test 0.03 10*3/uL 0-0.06 code = [id number]) LYMPH x10^3 (test code 0.79 10*3/uL 1.32-3.29 L = 731-0) MONO x10^3 (test code 0.34 10*3/uL 0.33-0.92 = 742-7) EOS x10^3 (test code = 0.18 10*3/uL 0.03-0.39 711-2) BASO x10^3 (test code 0.01-0.07 = 704-7) POLYCHROMASIA (test 2+ See_Comment [Automa arpit code = 47154-7) message] The system which generated this result [...] . Lab Interpretation Abnormal (test code = 73412-5) [facility] METABOLIC PANEL (NA, K, CL, CO2, GLUCOSE, BUN, [place]AT[place], [place])2022-02-13 10:39:07 Test Item Value Reference Range Interpretation Comments NA (test code = 136 mmol/L 135-145 6910100689) K (test code = 4.1 mmol/L 3.5-5 6131025856) CL (test code = 102 mmol/L 98-108 7774575077) CO2 TOTAL (test code = 27 mmol/L 23-31 4099236196) AGAP (test code = 2-16 6815053303) BUN (test code = 22 mg/dL 7-23 6872991137) GLUCOSE (test code = 94 mg/dL 70-110 5898878360) CREATININE (test code = 0.94 mg/dL 0.5-1.04 1964701780) CALCIUM (test code = 8.1 mg/dL 8.6-10.6 L 5660517470) eGFR (test code = mL/min/1.73m2 7609481042) KYLE (test code = KYLE) Association of [...] tests). Lab Interpretation Abnormal (test code = 25185-0) [facility]2022-02-12 01:50:10 Test Item Value Reference Range Interpretation Comments Height (test code = in 8743761399) Weight (test code = lbs 7603574849) Systolic BP (test code mmHg = 6458615439) Diastolic BP (test code mmHg = 6255506675) Heart Rate (test code = bpm 3482826779) BSA (test code = 1.85 m2 5604157031) IVS (test code = 1.22 cm 8272689615) Interventricular Septum 1.22 cm Diastolic Thickness by 2D (test code = 4721124) LVIDD (test code = 5.00 cm 0453548206) Left Ventricular End 117.9 mL Diastolic Volume by Teichholz Method (test code = 0386164) LVPWD (test code = 1.22 cm 5841176857) PW (test code = 1.22 cm 0.6-1.1 9451231091) EF(Teich) (test code = 74.60 % 6124415975) LVIDS (test code = 2.80 cm 6117277194) Left Ventricular End 29.9 mL Systolic Volume by Teichholz Method (test code = 0665528) FS (test code = 44 % 3955988118) EF - 2D (test code = 74.60 % 65255901) LVOT diameter (test 2.16 cm code = 9367923576) LVOT area (test code = 3.70 cm2 0822603624) Ao root diam (test code 3.40 cm = 2296114371) Aortic root (test code 3.4 cm = 7386233530) Ao root annulus (test 3.4 cm code = 9710861145) LA size (test code = 3.4 cm 7565804029) TR Peak Spencer (test code 330.0 cm/s = 2534886078) Triscuspid Valve mmHg Regurgitation Peak Gradient (test code = 0101929188) PV REGURGITATION PEAK mmHg GRADIENT (test code = 9901666413) PI dec slope (test code 137.20 cm/s2 = 8483115183) LAV(MOD-sp4) (test code 102.90 mL = 1359851026) MV Peak E Spencer (test 84.1 cm/s code = 8057126597) MV Peak A Spencer (test 40.1 cm/s code = 1991177010) E/A ratio (test code = ratio 3719852529) MV valve area p 1/2 3.70 cm2 method (test code = 5814826725) MV dec slope (test code 413.00 cm/s2 = 6237474050) MV P1/2t max spencer (test 83.70 cm/s code = 6666202555) MV Prop V (test code = 41.80 cm/s 7990695824) Tapse (test code = 1.83 cm 3710938923) LVOT stroke volume 96.90 cm3 (test code = 0772176839) LVOT peak spencer (test 125.5 cm/s code = 5901928721) LVOT mn grad (test code mmHg = 0516399763) AV LVOT peak gradient mmHg (test code = 7616323121) LVOT peak VTI (test 26.4 cm code = 0294646168) LV V1 mean (test code = 78.10 cm/s 3615244835) Aortic valve mean 103.7 cm/s velocity (test code = 8519218825) Ao peak spencer (test code 165.6 cm/s = 8009480922) Ao VTI (test code = 37.2 cm 8857572372) AV area by cont VTI 2.6 cm2 (test code = 5736868856) AV area peak spencer (test 2.8 cm2 code = 1806202073) Ao max PG (test code = 11.00 mm[Hg] 2300583302) AV peak gradient (test mmHg code = 3489867059) AV valve area (test 2.60 cm2 code = 4862796749) AV mean gradient (test mmHg code = 1370449885) LA Volume Index (BP) 55.2 mL/m2 (test code = 9973617795) LA volume (BP) (test 102.1 mL code = 7823501844) LAV(MOD-sp2) (test code 86.10 mL = 4951489938) A2C EF (test code = 61.20 % 0833728067) EF(sp2-el) (test code = 61.60 % 7245586280) SV(MOD-sp2) (test code 47.10 mL = 4764006471) LV Diastolic Volume 70.7 mL (BP) (test code = 0224641407) A4C EF (test code = 53.00 % 2965223184) EF(MOD-bp) (test code = 56.70 % 3633825955) EF(sp4-el) (test code = 53.90 % 3727719749) LV Systolic Volume (BP) 30.6 mL (test code = 0088029561) SV(MOD-bp) (test code = 40.10 mL 9508441436) SV(MOD-sp4) (test code 32.40 mL = 6657986449) SV(sp4-el) (test code = 33.10 mL 0220192475) EF (test code = 1240243642) Left Ventricular Stroke 40.1 mL Volume by 2-D Biplane-MOD (test code = 5484497) LV Diastolic Volume 38.2 mL/m2 Index (BP) (test code = 0321113773) LV Systolic Volume 16.5 mL/m2 Index (BP) (test code = 1297820196) Radiology Study observation (narrative) (test code = 00968-1) KYLE (test code = KYLE) ?Left?Ventricle: Left [...] is normal. [facility]TR[facility]ON[facility] Y2480-14-53 05:45:01 Test Item Value Reference Interpretation Comments Range TROPONIN I (test See_Comment [Automated code = 3701539174) message] The system which generated this result [...] biotin. Lab Interpretation Normal (test code = 56997-5) [facility]-TERMINAL SVO-TOL3815-00-22 05:41:40 Test Item Value Reference Range Interpretation Comments NT-proBNP (test code 4250 pg/mL See_Comment H [Autom ated = 0739111892) message] The system which generated this result transmitted reference range : <=125. The reference range was not used to interpret this result as normal/abnormal . KYLE (test code = KYLE) Biotin has been reported to cause a negative bias, interpret results relative to patient's use of biotin. Lab Interpretation Abnormal (test code = 22386-0) [facility]kinACTIVATED PARTIAL THRMPLAS SOX7174-29-33 05:35:21 Test Item Value Reference Range Interpretation [...] seconds. Lab Interpretation Normal (test code = 73956-2) [facility]IV[facility] PART[facility] THRMPLAS [id number] 05:35:21 Test Item Value Reference Range Interpretation [...] seconds. Lab Interpretation Normal (test code = 47596-9) [facility]kinPROTHROMBIN TIME / [id number] 05:33:21 Test Item Value Reference Range Interpretation [...] tions. Lab Interpretation (test Normal code = 55973-2) [facility]COMP. METABOLIC PANEL (03078)2022-02-11 05:33:21 Test Item Value Reference Range Interpretation Comments NA (test code = 137 mmol/L 135-145 7299335882) K (test code = 4.3 mmol/L 3.5-5 3805235938) CL (test code = 103 mmol/L 98-108 9919371212) CO2 TOTAL (test code = 25 mmol/L 23-31 9377448424) AGAP (test code = 2-16 3317616164) BUN (test code = 19 mg/dL 7-23 9497028796) GLUCOSE (test code = 120 mg/dL 70-110 H 9698055214) CREATININE (test code = 1.15 mg/dL 0.5-1.04 H 7618505337) TOTAL BILI (test code = 0.9 mg/dL 0.1-1.9 8769574812) CALCIUM (test code = 8.9 mg/dL 8.6-10.6 3040156825) T PROTEIN (test code = 6.6 g/dL 6.3-8.2 4263877444) ALBUMIN (test code = 4.0 g/dL 3.5-5 2881579951) ALK PHOS (test code = 73 U/L 34-122 2325584033) ALTv (test code = 18 U/L 5-35 1742-6) AST(SGOT) (test code = 31 U/L 13-40 3560484853) eGFR (test code = mL/min/1.73m2 4019055758) KYLE (test code = KYLE) Association of [...] tests). Lab Interpretation Abnormal (test code = 72369-0) [facility]. METABOLIC PANEL (99567)2022-02-11 05:33:21 Test Item Value Reference Range Interpretation Comments NA (test code = 137 mmol/L 135-145 3259527691) K (test code = 4.3 mmol/L 3.5-5.0 1822712584) CL (test code = 103 mmol/L 98-108 1252252512) CO2 TOTAL (test code = 25 mmol/L 23-31 9538753249) AGAP (test code = 2-16 4599720939) BUN (test code = 19 mg/dL 7-23 2255905223) GLUCOSE (test code = 120 mg/dL 70-110 H 3986080217) CREATININE (test code = 1.15 mg/dL 0.50-1.04 H 0065486058) TOTAL BILI (test code = 0.9 mg/dL 0.1-1.9 2208008236) CALCIUM (test code = 8.9 mg/dL 8.6-10.6 0631270299) T PROTEIN (test code = 6.6 g/dL 6.3-8.2 8998659962) ALBUMIN (test code = 4.0 g/dL 3.5-5.0 4337499228) ALK PHOS (test code = 73 U/L 34-122 3913847558) ALTv (test code = 18 U/L 5-35 1742-6) AST(SGOT) (test code = 31 U/L 13-40 4603966145) eGFR (test code = mL/min/1.73m2 3007823400) KYLE (test code = KYLE) Association of [...] tests). Lab Interpretation Abnormal (test code = 54764-4) [facility]kinPROTHROMBIN TIME / [id number] 05:33:21 Test Item Value Reference Range Interpretation [...] tions. Lab Interpretation (test Normal code = 42135-7) [facility]kinCBC WITH [id number] 05:14:37 Test Item Value Reference Range Interpretation Comments WBC (test code = See_Comment [Automated 4590-2) message] The sy stem which generated this result transmitted reference range : 4.30 - 11.10 10*3/?L. The reference range was not used to interpret this result as normal/abnormal . RBC (test code = See_Comment L [Automated 609-8) message] The sy stem which generated this [...] RDW-SD (test code = 47.9 fL 39-49.9 37004-3) RDW-CV (test code = 14.9 % 12-15.5 788-0) PLT (test code = See_Comment L [Automated 777-3) message] The sy stem which generated this result transmitted reference range : 166 - 358 10*3/ ?L. The reference r abbey was not used to interpret this result as normal/abnormal . MPV (test code = 9.1 fL 9.5-12.9 L 10232-6) NRBC/100 WBC (test See_Comment [Automat ed code = 9541716650) message] The system which generated this result transmitted reference range : 0.0 - 10.0 /100 WBCs. The refer ence range was not u sed to interpret th is result as normal/abnormal . NRBC x10^3 (test code See_Comment [Auto mated = 8368094304) message] The s ystem which generated this result transmitted reference range : 10*3/?L. The reference range was not used to interpret this result as normal/abnormal . GRAN MAT (NEUT) % 78.5 % (test code = 770-8) IMM GRAN % (test code 0.20 % = 7521814024) LYMPH % (test code = 11.6 % 736-9) MONO % (test code = 8.4 % 5905-5) EOS % (test code = 1.1 % 713-8) BASO % (test code = 0.2 % 706-2) GRAN MAT x10^3(ANC) 3.45 10*3/uL 1.88-7.09 (test code = 7742952252) IMM GRAN x10^3 (test 0-0.06 code = 2546906807) LYMPH x10^3 (test code 0.51 10*3/uL 1.32-3.29 L = 731-0) MONO x10^3 (test code 0.37 10*3/uL 0.33-0.92 = 742-7) EOS x10^3 (test code = 0.05 10*3/uL 0.03-0.39 711-2) BASO x10^3 (test code 0.01-0.07 = 704-7) Lab Interpretation Abnormal (test code = 97170-7) [facility] Coronavirus 2019 Etbiery1693-59-87 18:08:00 Test Item Value Reference Range Interpretation [...] det ection of nucleic acids f rom pptDEDH-GcN-6 v irus and diagnosis of SA RS-CoV-2 virusinfection. It is an Emergency Use Authorization ( EUA) testauthorized by the U.S. FDA. BASIC METABOLIC [id number] 09:37:00 Test Item Value Reference Range Interpretation [...] = 9.0 mg/dL 8.0-10.5 N [place]) PROTHROMBIN [id number] 09:32:00 Test Item Value Reference Range Interpretation [...] (to prevent recurrent infar ct). 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 [facility] - XR CHEST 1 [id number] 00:00:00 [facility] 1955 Sex: F FAX: Carmenza Kelly [phone] [place]: St: ADM FAX: Mike Scales MD [phone] FAX: Bahman Chopra [phone] Name: LIO WATTS [facility] : 1955 Age/S: 66/F [address] [place] [address] Unit #: [id number] [place]: [place] [address] Phys: Bahman Chopra [facility] Acct: [id number] Dis Date: Status: ADM IN PHONE #: [phone] Exam Date: 06/17/2021 1320 FAX #: [phone] Reason: WATCHMAN EXAMS: CPT CODE: [id number] XR CHEST 1 V 03639 PROCEDURE INFORMATION: Exam: XR Chest Exam date [...] Chopra Technologist: RT Taylor(R) Trnscrd Date/Time/By: 06/17/2021 (4600) : By: Susanna Orig Print D/T: S: 06/17/2021 (3194) PAGE 1 Signed ReportCOVID 19 Asymptomatic IH [id number] 12:29:00 Test Item Value Reference Range Interpretation [...] high or waivedcomplexit y tests. BASIC METABOLIC VWURG0534-04-54 11:37:00 Test Item Value Reference Range Interpretation [...] code = 9.0 mg/dL 8.0-10.5 N [place]) PNRXTEXRIG3218-37-86 11:37:00 Test Item Value Reference Range Interpretation Comments PREALBUMIN (test code = PREALB) 24.3 mg/dL 16.0-40.0 N PROTHROMBIN [id number] 11:03:00 Test Item Value Reference Range Interpretation [...] (to prevent recurrent infar ct). CBC W/AUTO LHOX3721-88-40 10:59:00 Test Item Value Reference Range Interpretation [...] 0.0-0.1 N NRBC#) - XR CHEST 2 [id number] 00:00:00 [facility] : 1955 Sex: F FAX: Carmenza Kelly DO [phone] [place]: St: PRE FAX: Mike Scales MD [phone] Name: LIO WATTS [facility] : 1955 Age/S: 66/F [address] [place] [address] Unit #: [id number] Loc: [place], [place] [address]Djyr: Mike Lund MD Acct: [id number] Dis Date: Status: PRE SDC PHONE #: [phone] Exam Date: 06/16/20211119 FAX #: [phone] Reason: PREOP EXAMS: CPT CODE: [id number] XR CHEST 2 V 98662 PROCEDURE INFORMATION: Exam: XR Chest Exam date [...] By: [email or web address] Orig Print D/T: S: 06/16/2021 (9494) PAGE 1 Signed ReportGastrointestinal dpkkb7346-03-22 04:35:05 Test Item Value Reference Interpretation Comments [...] Rotavirus PCR (test Not Detected code = 9320565) Salmonella PCR (test Not Detected code = [...] = 7124) [facility] qeenxci8639-30-57 19:30:47 Test Item Value Reference Range Interpretation Comments Case number (test [id number] code = 5517609) Surgical pathology See link below for PDF report (test code = Lab Report 2255) Result status (test This is Supplemental code = 7236827) Report for [id number] [facility]2021-04-09 16:31:00 Test Item Value Reference Range Interpretation Comments POC Activated Clotting Time (test code 153 s = POC Activated Clotting Time) [facility] CenterGzrgokqRXYBOFDXUJ0652-45-53 16:31:00 Test Item Value Reference Range Interpretation Comments POC Activated Clotting Time (test code 153 s = POC Activated Clotting Time) [facility] CenterAjaricgCNXFLMEUUP4223-22-16 16:31:00 Test Item Value Reference Range Interpretation Comments POC Activated Clotting Time (test code 153 s = POC Activated Clotting Time) [facility] CenterXuulrmlUIMJPYXVSU8623-64-16 16:31:00 Test Item Value Reference Range Interpretation Comments POC Activated Clotting Time (test code 153 s = POC Activated Clotting Time) [facility] CenterKjhuttaXUACJPFKUO7563-77-28 16:31:00 Test Item Value Reference Range Interpretation Comments POC Activated Clotting Time (test code 153 s = POC Activated Clotting Time) [facility] CenterVaawrelQKTHXPCHXL4863-31-91 16:31:00 Test Item Value Reference Range Interpretation Comments POC Activated Clotting Time (test code 153 s = POC Activated Clotting Time) [facility] CenterGznxqooTSPHLBNJLS5133-26-97 16:31:00 Test Item Value Reference Range Interpretation Comments POC Activated Clotting Time (test code 153 s = POC Activated Clotting Time) [facility] CenterUhtigixRHLCJJEANT6508-17-00 14:37:00 Test Item Value Reference Range Interpretation Comments POC Activated Clotting Time (test code 454 s = POC Activated Clotting Time) [place] 879551-04-09 14:37:00 Test Item Value Reference Range Interpretation Comments POC Activated Clotting Time (test code 454 s = POC Activated Clotting Time) [facility] CenterHvnhmofQRCIVTTERS2422-26-75 14:37:00 Test Item Value Reference Range Interpretation Comments POC Activated Clotting Time (test code 454 s = POC Activated Clotting Time) [facility] CenterFocbjzyGPWZSBXLQR5520-32-61 14:37:00 Test Item Value Reference Range Interpretation Comments POC Activated Clotting Time (test code 454 s = POC Activated Clotting Time) [facility] CenterHouxuozYNISGFVDOG4806-20-53 14:37:00 Test Item Value Reference Range Interpretation Comments POC Activated Clotting Time (test code 454 s = POC Activated Clotting Time) [facility] CenterQretwzoLCPJDAFGTD3099-32-92 14:37:00 Test Item Value Reference Range Interpretation Comments POC Activated Clotting Time (test code 454 s = POC Activated Clotting Time) [facility] CenterMyrxrliGBVIVXVZTM4978-22-98 14:37:00 Test Item Value Reference Range Interpretation Comments POC Activated Clotting Time (test code 454 s = POC Activated Clotting Time) [facility] CenterNtwmmpqTZPREYNJAP5432-05-68 14:13:00 Test Item Value Reference Range Interpretation Comments POC Activated Clotting Time (test code 354 s = POC Activated Clotting Time) [facility] CenterJwtalgpADBYDIVILM3726-14-91 14:13:00 Test Item Value Reference Range Interpretation Comments POC Activated Clotting Time (test code 354 s = POC Activated Clotting Time) [facility] CenterYbfmzoaSTCKWIQUSC4452-71-28 14:13:00 Test Item Value Reference Range Interpretation Comments POC Activated Clotting Time (test code 354 s = POC Activated Clotting Time) [facility] CenterFyyblbxXKGDZCJCIB5504-40-76 14:13:00 Test Item Value Reference Range Interpretation Comments POC Activated Clotting Time (test code 354 s = POC Activated Clotting Time) [facility] CenterLqzvfwlJQLQWXSJEX9740-11-22 14:13:00 Test Item Value Reference Range Interpretation Comments POC Activated Clotting Time (test code 354 s = POC Activated Clotting Time) [facility] CenterDczmulxTNKSCPZULD3982-83-16 14:13:00 Test Item Value Reference Range Interpretation Comments POC Activated Clotting Time (test code 354 s = POC Activated Clotting Time) [facility] SartmyoRZYTPAQXYK4428-08-23 14:13:00 Test Item Value Reference Range Interpretation Comments POC Activated Clotting Time (test code 354 s = POC Activated Clotting Time) [facility] BANK HEAVEZJ2906-83-29 10:37:00Negative (08/29/20 5:37 AM) [facility] AVLJI3524-83-93 10:37:87520Eahoyrvz HermannCHEM PANEL 2020-08-29 10:37:0028[facility]annCHEM PYRWD3857-96-04 10:37:001.01[facility]annCHEM MVPWE5563-35-68 10:37:45113Qsvifijp HermannCHEM ZCICH2405-50-02 10:37:003.8[facility]annCHEM EKHCB6232-67-46 10:37:66418Buipnpbw HermannCHEM XTLEP5256-84-94 10:37:0028[facility]annCHEM JAUAI8122-00-02 10:37:009.8 [facility]annCHE[facility] JVLVM4278-70-29 10:37:0011.8[facility]annCHEM PANEL 2020-08-29 10:37:0059[facility]annCHEM UXDJH9149-00-24 10:37:002.9[facility] PggmjvrOGUVISCEPR6553-60-12 10:37:006.8[facility] DlrugunWMYXDECBBQ2640-70-90 10:37:004.47[facility] RhaqfigYUKTKCMEVO9228-26-24 10:37:0010.6[facility] Marty LNURXZHNJG3567-18-82 10:37:0034.0[facility] FjgxkkaSTGTNUAPPE1161-66-34 10:37:00 76.1[facility] IczrjiyXFLKEBJFVB8483-89-89 10:37:00 Test Item Value Reference Range Interpretation Comments MCH (test code = MCH) 23.8 pg 27.0-31.0 [facility] RrkewneUBZTECVYJH6611-75-82 10:37:0031.3[facility] HermannHEMATOLOGY 2020-08-29 10:37:0018.2[facility] PddcuobEFQNFYYLKI3869-86-05 10:37:45704Nysrmbsq VbeeomkKZKHJAOUFC9229-65-46 10:37:007.5[facility] SazchgsFRBLLJVMFV3113-29-97 10:37:00 Test Item Value Reference Range Interpretation Comments PT (test code = PT) 12.8 s 12.0-14.7 [facility] SapemylMDIMJNNXNZ7780-70-76 10:37:00 Test Item Value Reference Range Interpretation Comments INR (test code = INR) 0.97 1 0.85-1.17 [facility] NwxycwqRBHLOOQGYE5280-15-09 10:37:00 Test Item Value Reference Range Interpretation Comments PTT (test code = PTT) 25.0 s 22.9-35.8 [facility] ZcerybhRAWHVWOWVJ2120-42-48 10:37:0070.5[facility] HermannHEMATOLOGY 2020-08-29 10:37:0018.8[facility] TuhezviKAMYYMHDFE8890-47-20 10:37:009.5[facility] VrlygjdFDYIWGPRDT2225-41-37 10:37:000.9[facility] AwdmcnhHHQTGLJBFO6546-94-91 10:37:000.3[facility] GiuxrejKHWJWQZYKJ7976-50-55 10:37:004.8[facility] [place] FDLCLDPXUD6578-89-13 10:37:001.3[facility] WzsrddiWJTLXNJJJZ8547-39-61 10:37:000.6 [facility] EljrrjrPIVNXAEEPF0608-58-17 10:37:000.1[facility]annHEMATOLOGY 2020-08-29 10:37:001+ *ABN*(08/29/20 5:37 AM)[facility] NstubmsBDKYZTFYXY6648-29-02 10:37:00Not Detected (08/29/20 5:37 AM)[facility]annBLOOD BANK RESULTS 2020-08-29 10:37:00Negative (08/29/20 5:37 AM)[facility]annCHEM ZPAIR5057-38-32 10:37:46580Dezpterc HermannCHEM IZXYY3766-93-39 10:37:0028[facility] HermannCHEM KMULU3182-00-51 10:37:001.01[facility] HermannCHEM TZZIZ2216-55-20 10:37:20328 [facility]annCHEM UAWQW3322-70-50 10:37:003.8[facility] HermannCHEM PANEL 2020-08-29 10:37:28277Jrjrpbaa HermannCHEM ASPNJ7716-14-41 10:37:0028[facility] HermannCHEM GAHSZ6440-69-57 10:37:009.8[facility]annCHEM PPKAQ1752-58-22 10:37:0011.8[facility] HermannCHEM QJIYG5546-82-91 10:37:0059[facility]annCHEM DRUVJ6443-81-51 10:37:002.9[facility] DqqpzgcDYSNWMLUMM0599-35-57 10:37:006.8 [facility] WlchvrvCEGAHLTIBP3492-77-67 10:37:004.47[facility]annHEMATOLOGY 2020-08-29 10:37:0010.6[facility] ZopbzvdEGKQVTZQYC2719-37-90 10:37:0034.0[facility] TuptyotWRNCLJXPJL4050-83-40 10:37:0076.1[facility] IqvxrfrYSWVZVBSQM4607-22-00 10:37:00 Test Item Value Reference Range Interpretation Comments MCH (test code = MCH) 23.8 pg 27.0-31.0 [facility] VzgawjsOOWZMZLCIO5908-84-60 10:37:0031.3[facility] HermannHEMATOLOGY 2020-08-29 10:37:0018.2[facility] FszpjmtKXLKSNMSES4044-08-93 10:37:87773Ipktflwl YzjrivqAMFQAMJRUW8222-24-17 10:37:007.5[facility] FnhavjoWDORZTTMGN7663-47-54 10:37:00 Test Item Value Reference Range Interpretation Comments PT (test code = PT) 12.8 s 12.0-14.7 [facility] XvetdtbFPQCLTOZVJ5613-58-63 10:37:00 Test Item Value Reference Range Interpretation Comments INR (test code = INR) 0.97 1 0.85-1.17 [facility] XiwaihlZNASICEWQR9796-57-72 10:37:00 Test Item Value Reference Range Interpretation Comments PTT (test code = PTT) 25.0 s 22.9-35.8 [facility] DuaecrhEBASRPDZMS8864-90-49 10:37:0070.5[facility]annHEMATOLOGY 2020-08-29 10:37:0018.8[facility] NhakuipDWRPZDVNER0844-97-12 10:37:009.5[facility] ZdoayvpTTBBMXKFUA7839-60-11 10:37:000.9[facility] JmuxznaMGLTEUAMJO0351-95-97 10:37:000.3[facility] GeprrkbQZVYYMZLMS1924-35-72 10:37:004.8[facility] [place] WSEFYDFTBA1223-67-06 10:37:001.3[facility] SfkdbayHZQGLTDHTM8241-07-32 10:37:000.6 [facility] XbefsvmNPVPBPXVCR9985-35-61 10:37:000.1[facility] HermannHEMATOLOGY 2020-08-29 10:37:001+ *ABN*(08/29/20 5:37 AM)[facility] OuhrxzdFRXYOSUMYG5752-29-60 10:37:00Not Detected (08/29/20 5:37 AM)[facility]annBLOOD BANK RESULTS 2020-08-29 10:37:00Negative (08/29/20 5:37 AM)[facility]annCHEM OGAGT3141-47-17 10:37:65389Svbsrfsu HermannCHEM KVKXX2399-71-52 10:37:0028[facility] HermannCHEM VMSAK1921-97-52 10:37:001.01[facility] HermannCHE[facility] QIWLI3058-49-78 10:37:49226 [facility]CHE[facility] MYLWK7653-99-03 10:37:003.8[facility]annCHEM PANEL 2020-08-29 10:37:22384Kmrrtxrp HermannCHEM RRYFO3043-05-76 10:37:0028[facility]annCHEM YMBIC5868-01-82 10:37:009.8[facility]annCHEM JPUIB4702-66-96 10:37:0011.8[facility]annCHEM KBEJK9859-66-92 10:37:0059[facility]annCHEM JPPXR3627-30-76 10:37:002.9[facility] ErkzxflEZYVXBQYLU3264-71-03 10:37:006.8 [facility] OyiswdqAOWFIHMDPI2450-13-85 10:37:004.47[facility]annHEMATOLOGY 2020-08-29 10:37:0010.6[facility] YulshdbTLCIKTFPOZ1161-68-12 10:37:0034.0[facility] OoetpbpRMIFHSKGIL1902-58-07 10:37:0076.1[facility] QxwxpctDUATBTSAHH2701-06-01 10:37:00 Test Item Value Reference Range Interpretation Comments MCH (test code = MCH) 23.8 pg 27.0-31.0 [facility] TnfrgpaGQCMTWSPVV5754-84-59 10:37:0031.3[facility]annHEMATOLOGY 2020-08-29 10:37:0018.2[facility] KoeacpxVADIIXTFBG0458-48-71 10:37:87216Jomdhyso ZniqnuiIXALCYLBEA4802-84-54 10:37:007.5[facility] TdwhmwxYMIESRDLRY3030-00-54 10:37:00 Test Item Value Reference Range Interpretation Comments PT (test code = PT) 12.8 s 12.0-14.7 [facility] KgprkjcZMFHHTPPWD1474-91-98 10:37:00 Test Item Value Reference Range Interpretation Comments INR (test code = INR) 0.97 1 0.85-1.17 [facility] OtkqexrYAAIEZXKEX4845-84-28 10:37:00 Test Item Value Reference Range Interpretation Comments PTT (test code = PTT) 25.0 s 22.9-35.8 [facility] XukzrarUJWTRISPDV2215-18-21 10:37:0070.5[facility]annHEMATOLOGY 2020-08-29 10:37:0018.8[facility] TxmbjbkXINKJWLNFL6095-69-77 10:37:009.5[facility] SchuuosATRSQFHOAH6427-51-96 10:37:000.9[facility] QcaoayzOGESYQOMOB4460-44-60 10:37:000.3[facility] IiwlfogKRVMDBGZDM3257-20-74 10:37:004.8[facility] OWYTXROHFF4857-57-01 10:37:001.3[facility] CfwfjybKKECRULJUU5685-41-52 10:37:000.6 [facility] CzjiuxpQPRUPIXXEA0072-49-46 10:37:000.1[facility]annHEMATOLOGY 2020-08-29 10:37:001+ *ABN*(08/29/20 5:37 AM)[facility] JmfdcieXYUFKDAIUM0597-22-80 10:37:00Not Detected (08/29/20 5:37 AM)[facility]ann[facility] BANK RESULTS 2020-08-29 10:37:00Negative (08/29/20 5:37 AM)[facility]annCHEM TIYGD8441-92-41 10:37:42398Qffgosqc HermannCHEM ZAZPX1346-50-39 10:37:0028[facility]annCHEM LDSQW8588-79-10 10:37:001.01[facility]annCHEM VRVVO2594-16-21 10:37:99893 [facility]annCHEM JJIYJ6463-37-81 10:37:003.8[facility]annCHEM PANEL 2020-08-29 10:37:52187Xwbcxaez HermannCHEM RVKBC2353-35-30 10:37:0028[facility]annCHEM WKCIJ8544-61-64 10:37:009.8[facility]annCHEM BDVHC3068-68-57 10:37:0011.8[facility]annCHEM LVZSD6011-59-67 10:37:0059[facility]annCHEM FBDHJ3641-63-45 10:37:002.9[facility] ItxyazuQLHRKFMXXJ7206-29-87 10:37:006.8 [facility] XlqcztxOSASEXTGED2277-86-25 10:37:004.47[facility]annHEMATOLOGY 2020-08-29 10:37:0010.6[facility] TxhasweJRZUVHCZWG7943-20-59 10:37:0034.0[facility] NaktlffCYLVZSAROJ0089-63-38 10:37:0076.1[facility] WwtzcxqJEJWRQCZBL7725-37-05 10:37:00 Test Item Value Reference Range Interpretation Comments MCH (test code = MCH) 23.8 pg 27.0-31.0 [facility] NvbidgnKBPHIJMIDZ8306-98-10 10:37:0031.3[facility]annHEMATOLOGY 2020-08-29 10:37:0018.2[facility] WurmszfPTLXAGYXNQ8749-51-96 10:37:86119Igyhglwe MrjshgsYEGLCMQFKC7425-49-63 10:37:007.5[facility] AbzfnkwXSVVOQWZXQ0226-19-12 10:37:00 Test Item Value Reference Range Interpretation Comments PT (test code = PT) 12.8 s 12.0-14.7 [facility] KpzkvcnUVVGGWNXEM5536-39-05 10:37:00 Test Item Value Reference Range Interpretation Comments INR (test code = INR) 0.97 1 0.85-1.17 [facility] YbsslrlARANHESWSI9490-42-80 10:37:00 Test Item Value Reference Range Interpretation Comments PTT (test code = PTT) 25.0 s 22.9-35.8 [facility] LnexclwRYWRPGCCHN3349-21-15 10:37:0070.5[facility]annHEMATOLOGY 2020-08-29 10:37:0018.8[facility] EnpvbrlIPSCINEEZR9648-93-38 10:37:009.5[facility] TjjzjcmLVFAYSNMOH5248-51-11 10:37:000.9[facility] XkfoyvzKERPPXMXUM8334-64-68 10:37:000.3[facility] RroxwitKWBWKXUDBR2962-43-27 10:37:004.8[facility] [place] PNXYYMTVBJ7891-34-29 10:37:001.3[facility] KkzlzxxVOVTCUZVGD3742-30-38 10:37:000.6 [facility] UkulgzcMQVAMJWLHM7195-27-99 10:37:000.1[facility]annHEMATOLOGY 2020-08-29 10:37:001+ *ABN*(08/29/20 5:37 AM)[facility] JgcnbqwUINQDJECOK9700-74-94 10:37:00Not Detected (08/29/20 5:37 AM)[facility]annBLOOD BANK RESULTS 2020-08-29 10:37:00Negative (08/29/20 5:37 AM)[facility]annCHEM RTPAQ5842-90-08 10:37:02082Natjlpij HermannCHEM BDHZA4746-70-97 10:37:0028[facility]annCHEM SRXQF5616-00-06 10:37:001.01[facility]annCHEM TLUPX6245-72-25 10:37:71334 [facility]annCHEM XLMYM0762-66-80 10:37:003.8[facility] HermannCHEM PANEL 2020-08-29 10:37:13687Khezpdxk HermannCHEM XWIAE9515-36-84 10:37:0028[facility]annCHEM RIYOV7852-01-94 10:37:009.8[facility] HermannCHEM ZRUER1850-77-18 10:37:0011.8[facility] HermannCHEM QPFYY8490-13-54 10:37:0059[facility]annCHEM QFKEI2423-17-28 10:37:002.9[facility] BltdtpbSTYQSNRCDV8501-38-54 10:37:006.8 [facility] NkdowzqNTTSPLELBE5435-46-42 10:37:004.47[facility]annHEMATOLOGY 2020-08-29 10:37:0010.6[facility] ShldfjdBJAKYVWXTW0017-76-62 10:37:0034.0[facility] SkpoeyhCHQBCOTAIG0151-79-62 10:37:0076.1[facility] ItsekdcIPTQNTQPVY5815-43-09 10:37:00 Test Item Value Reference Range Interpretation Comments MCH (test code = MCH) 23.8 pg 27.0-31.0 [facility] VpuypmpJYZOMCNVTD0914-54-92 10:37:0031.3[facility] HermannHEMATOLOGY 2020-08-29 10:37:0018.2[facility] ZdsjtcaGTZCOZBFBH9461-30-30 10:37:23478Gdjwwwvg ZabazisHKNTTOEMQZ2428-81-87 10:37:007.5[facility] PfpnfikCAUFJOGZNB5646-32-23 10:37:00 Test Item Value Reference Range Interpretation Comments PT (test code = PT) 12.8 s 12.0-14.7 [facility] GhqyijpOZJTGISVRZ3036-95-03 10:37:00 Test Item Value Reference Range Interpretation Comments INR (test code = INR) 0.97 1 0.85-1.17 [facility] WslxklhFZXLMSKRWU8967-82-53 10:37:00 Test Item Value Reference Range Interpretation Comments PTT (test code = PTT) 25.0 s 22.9-35.8 [facility] KbylokzGBQVDUHHHC0589-28-26 10:37:0070.5[facility] HermannHEMATOLOGY 2020-08-29 10:37:0018.8[facility] FevzwwyVLKLHNAVIM0013-92-33 10:37:009.5[facility] OlodqrfLUBSSSRIQP0685-23-52 10:37:000.9[facility] PjezftxKTQZYJUPYD6185-24-83 10:37:000.3[facility] IdiyprdFJQGQVYVML9411-39-34 10:37:004.8[facility] KPNKBJCNJA7246-67-05 10:37:001.3[facility] KbtupinNFZERBARAP8627-92-91 10:37:000.6 [facility] CfmuufkWCLOFOWIWZ3647-56-56 10:37:000.1[facility] HermannHEMATOLOGY 2020-08-29 10:37:001+ *ABN*(08/29/20 5:37 AM)[facility] CyspycaROBPGIWNJI0416-79-23 10:37:00Not Detected (08/29/20 5:37 AM)[facility]annBLOOD BANK RESULTS 2020-08-29 10:37:00Negative (08/29/20 5:37 AM)[facility] HermannCHEM CWADI1145-41-52 10:37:18660Pphccjpg HermannCHEM TVCBL0147-69-80 10:37:0028[facility] HermannCHEM DJNNM4505-40-61 10:37:001.01[facility] HermannCHEM IMUVI6090-96-69 10:37:16024 [facility]annCHEM DPMAE0680-91-91 10:37:003.8[facility] HermannCHEM PANEL 2020-08-29 10:37:20604Cjucscuv HermannCHEM VGYAF8919-79-88 10:37:0028[facility] HermannCHEM JKLIM2815-44-81 10:37:009.8[facility] HermannCHEM GYKWY0014-92-91 10:37:0011.8[facility] HermannCHEM KCNHO3449-93-31 10:37:0059[facility] HermannCHEM WQOVG5405-00-89 10:37:002.9[facility] LuguiviXPJYMKXRUK5037-24-82 10:37:006.8 [facility] RfdrjmbBSRXKFGZKM5448-30-86 10:37:004.47[facility] HermannHEMATOLOGY 2020-08-29 10:37:0010.6[facility] IslwnbiRTNHSPAJHC0326-84-12 10:37:0034.0[facility] QhqozuiLFAYKVHFIB9998-53-47 10:37:0076.1[facility] KtuapmxTSMVEHHSFI7840-57-14 10:37:00 Test Item Value Reference Range Interpretation Comments MCH (test code = MCH) 23.8 pg 27.0-31.0 [facility] DtvrmchHOHFOIHBBV6961-88-44 10:37:0031.3[facility] HermannHEMATOLOGY 2020-08-29 10:37:0018.2[facility] UckvpctXNXEHHDXML2635-20-25 10:37:53097Vguleuow AmfuczdQCTNUAEIUY9007-83-67 10:37:007.5[facility] ErucrviXATBUTGNBW3819-38-15 10:37:00 Test Item Value Reference Range Interpretation Comments PT (test code = PT) 12.8 s 12.0-14.7 [facility] YhcclvfJFWAJTFXGS9233-39-90 10:37:00 Test Item Value Reference Range Interpretation Comments INR (test code = INR) 0.97 1 0.85-1.17 [facility] ZyxqsncSAGJVZHLJO1198-03-44 10:37:00 Test Item Value Reference Range Interpretation Comments PTT (test code = PTT) 25.0 s 22.9-35.8 [facility] PgtsrwtSJNPAQBXXK6175-07-88 10:37:0070.5[facility]annHEMATOLOGY 2020-08-29 10:37:0018.8[facility] ZxsxkvdPLTIQVKCCZ0359-07-59 10:37:009.5[facility] OgbubjrSHBFCMOGCP2773-52-61 10:37:000.9[facility] YofccrwVWUCGPMILA9645-21-60 10:37:000.3[facility] JgrdpzvLZRWIFZLFZ4122-11-15 10:37:004.8[facility] IEBIXEHCAK3326-40-22 10:37:001.3[facility] ZazungcWUODXZVCDX3273-17-53 10:37:000.6 [facility] YmooxepDNRFRWACBO4383-87-43 10:37:000.1[facility] HermannHEMATOLOGY 2020-08-29 10:37:001+ *ABN*(08/29/20 5:37 AM)[facility] FdakxbvZGNWBRRWQL3677-63-32 10:37:00Not Detected (08/29/20 5:37 AM)[facility]annBLOOD BANK RESULTS 2020-08-29 10:37:00Negative (08/29/20 5:37 AM)[facility] HermannCHEM MJZLF7760-81-12 10:37:18360Abcmyeon HermannCHEM FJCEC2297-24-76 10:37:0028[facility]annCHEM QZASM5343-23-47 10:37:001.01[facility] HermannCHEM JKRML8892-41-27 10:37:67891 [facility]annCHE[facility] YZZKR5490-24-33 10:37:003.8[facility] HermannCHEM PANEL 2020-08-29 10:37:65444Ktlsprzi HermannCHEM XZGJE7958-35-48 10:37:0028[facility] HermannCHEM RLIJQ9523-11-76 10:37:009.8[facility] HermannCHEM GKROZ3019-01-73 10:37:0011.8[facility] HermannCHEM RGFEE8873-39-73 10:37:0059[facility] HermannCHEM JJSBV8974-88-49 10:37:002.9[facility] ZfjciurNWJAESNVLN8855-41-99 10:37:006.8 [facility] LdbelelKQJSWIAIUF2440-89-54 10:37:004.47[facility]annHEMATOLOGY 2020-08-29 10:37:0010.6[facility] RhsqgrsWWAKFOQIRN5062-75-27 10:37:0034.0[facility] FyitbirNIOQOPUJEY7082-18-61 10:37:0076.1[facility] XbxzymmAETLSFMVXS7105-02-84 10:37:00 Test Item Value Reference Range Interpretation Comments MCH (test code = MCH) 23.8 pg 27.0-31.0 [facility] UjhrubjVJWTEXXPZQ8486-35-91 10:37:0031.3[facility]annHEMATOLOGY 2020-08-29 10:37:0018.2[facility] YwpdnmzMOYLPSSMMW0489-19-47 10:37:14023Tbtyrnhg IosspbhYKAZLZDYVT3834-24-05 10:37:007.5[facility] YwslgfzIUXMEXAPWV8434-30-91 10:37:00 Test Item Value Reference Range Interpretation Comments PT (test code = PT) 12.8 s 12.0-14.7 [facility] HicohiyPHYGYUNHMI6104-61-52 10:37:00 Test Item Value Reference Range Interpretation Comments INR (test code = INR) 0.97 1 0.85-1.17 [facility] MaefuhuQWOZKAHTCH9211-19-62 10:37:00 Test Item Value Reference Range Interpretation Comments PTT (test code = PTT) 25.0 s 22.9-35.8 [facility] FrzifuqZIMKZKCNKZ9816-62-36 10:37:0070.5[facility] HermannHEMATOLOGY 2020-08-29 10:37:0018.8[facility] XmjmafhFSGEVMKVON3163-14-28 10:37:009.5[facility] DaxslzuCAKVLVVTYD9216-30-76 10:37:000.9[facility] EofgshrENWAVMXVQS8271-43-03 10:37:000.3[facility] HkmybkuDXKHKXAGHM6075-48-50 10:37:004.8[facility] ZQBSMIJRCD6590-77-23 10:37:001.3[facility] QmyrnrkULIZMFOBLT8434-59-63 10:37:000.6 [facility] IevgntkHDXLAAGANZ1245-98-51 10:37:000.1[facility] HermannHEMATOLOGY 2020-08-29 10:37:001+ *ABN*(08/29/20 5:37 AM)[facility] ZiqjqxqINLRXQIENR6763-79-42 10:37:00Not Detected (08/29/20 5:37 AM)[facility] HermannCHLAMYDIA, GC, TV,PCR, IN CUAST5072-73-25 15:38:00 Test Item Value Reference Range Interpretation Comments FT (test code = CHTR) Not detected (qualifier Not Detected N value) FT (test code = Not detected (qualifier Not Detected N NGONO) value) FT (test code = TRVG) Not detected (qualifier Not Detected N value) [facility] LXLHZIVUJQD4277-68-88 10:57:00 Test Item Value Reference Range Interpretation Comments Color (test code = UCOLR) Dk. Yellow Clarity (test code = UCLAR) Hazy Glucose (test code = UGLUC) NEGATIVE NEGATIVE N Bilirubin (test code = UBILI) NEGATIVE NEGATIVE N Ketones (test code = UKET) NEGATIVE NEGATIVE N Specific [place] (test code = 1.025 1.005-1.030 A USPGR) [...] = None Seen None Seen N URCRYS) [facility]"
[2022-07-04] MEDS ORDERED: KETOROLAC 30 MG/ML INJ ONE (05:36)
[2022-07-04] MEDS ORDERED: NA CHLORIDE 0.9% 1,000 ML ONE (05:37)
[2022-07-04] MEDS ORDERED: ONDANSETRON 4 MG/2 ML VIAL ONE (05:37)
[2022-07-04 05:53] LABS: Absolute Lymphocytes (CBC) 0.8 K/uL (0.7-4.9); Lymphocytes % 15.9 % (15.3-44.8); MCV 89.2 fL (80-100); RBC Red Blood Cell Count 4.15 M/uL (3.86-4.86)
[2022-07-04 06:10] LABS: Albumin 3.5 g/dL (3.4-5.0); Bilirubin Total 0.5 mg/dL (0.2-1.0); Potassium 3.3 mmol/L (3.5-5.1); Protein, Total 7.4 g/dL (6.4-8.2)
[2022-07-04 07:55] LABS: Urine Blood Negative (Negative); Urine Glucose Negative (Negative); Urine Protein Trace (Negative); Urine Specific Gravity >=1.030 (1.005-1.030); Urine pH 5.5 (5.0-7.0)
--- NOTE | 2022-07-04 08:06 | ER ---
Nurse's Notes [facility] Name: Marjan Kolb Age: 67 yrs Sex: Female : 1955 Arrival Date: 07/04/2022 Time: 05:10 Bed 7 Private MD: Diagnosis: Strain of muscle and tendon of back wall of thorax;Essential (primary) hypertension Presentation: 07/04 05:10 Chief complaint: Patient states: Pt reports abdominal pain and left flank pain with jb4 tenderness upon palpation. B/p was 220/110, pt denies taking blood pressure medication and reports it is due to her pain. Coronavirus screen: At this time, the client does not indicate any symptoms associated with coronavirus-19. Ebola Screen: No symptoms or risks identified at this time. Risk Assessment: Do you want to hurt yourself or someone else? Patient reports no desire to harm self or others. Onset of symptoms was July 04, 2022. Transition of care: patient was not received from another setting of care. 05:10 Method Of Arrival: EMS: [facility] jb4 05:10 Acuity: BLAYNE 3 jb4 08:22 Initial Sepsis Screen: Does the patient meet any 2 criteria? No. Patient's initial ph sepsis screen is negative. Does the patient have a suspected source of infection? No. Patient's initial sepsis screen is negative. Historical: - Allergies: 05:10 Azithromycin; jb4 05:10 Bactrim; jb4 05:10 butorphanol; jb4 05:10 Fentanyl; jb4 05:10 Reglan; jb4 05:10 Sulfa (Sulfonamide Antibiotics); jb4 05:10 TRIMETHOPRIM; jb4 - Home Meds: 05:10 clopidogrel Oral [Active]; jb4 - PMHx: 05:10 Anxiety; Atrial fibrillation; Bipolar disorder; esophageal varicies; Hepatitis; HIV jb4 positive; Hypertensive disorder; Migraine; panic attack; - Immunization history:: Adult Immunizations unknown. - Social history:: Smoking status: unknown. Screenin:26 [facility] ED Fall Risk Assessment (Adult) History of falling in the last 3 months, jb4 including since admission Yes- single mechanical fall (1 pt) Confusion or Disorientation No (0 pts) Intoxicated or Sedated No (0 pts) Impaired Gait No (0 pts) Mobility Assist Device Used No (0 pt) Altered Elimination No (0 pt) Score/Fall Risk Level 0 - 2 = Low Risk Oriented to surroundings, Maintained a safe environment. Abuse screen: Denies threats or abuse. Nutritional screening: No deficits noted. Tuberculosis screening: No symptoms or risk factors identified. Assessment: 05:22 General: Appears in no apparent distress. uncomfortable, Behavior is calm, cooperative, jb4 appropriate for age. Pain: Complains of pain in posterior aspect of left lateral abdomen Pain does not radiate. Pain currently is 10 out of 10 on a pain scale. Neuro: Level of Consciousness is awake, alert, obeys commands, Oriented to person, place, time, situation. Cardiovascular: Patient's skin is warm and dry. Respiratory: Airway is patent Respiratory effort is even, unlabored, Respiratory pattern is regular, symmetrical. GI: Abdomen is flat, non-distended. : Reports pain in left flank(s). EENT: No signs and/or symptoms were reported regarding the EENT system. Derm: Skin is intact, Skin is pink, warm \T\ dry. Musculoskeletal: Circulation, motion, and sensation intact. Range of motion: intact in all extremities. 06:25 Reassessment: Patient appears in no apparent distress at this time. Patient and/or jb4 family updated on plan of care and expected duration. Pain level reassessed. Patient is alert, oriented x 3, equal unlabored respirations, skin warm/dry/pink. 07:25 Reassessment: Patient appears in no apparent distress at this time. Patient and/or ph family updated on plan of care and expected duration. Pain level reassessed. Patient is alert, oriented x 3, equal unlabored respirations, skin warm/dry/pink. Pt states that pain medication was not effective, requesting pain medication, ERP notified, no further orders at this time'. Vital Signs: 05:19 BP 217 / 108; Pulse 77; Resp 16; Temp 98.4(O); Pulse Ox 97% on R/A; Weight 81.65 kg jb4 (R); Height 5 ft. 4 in. (162.56 cm) (R); Pain 10/10; 06:25 BP 171 / 84; Pulse 66; Resp 16; Pulse Ox 94% on R/A; jb4 08:34 BP 174 / 80; Pulse 68; Resp 18; Temp 97.8; Pulse Ox 98% on R/A; ph 05:19 Body Mass Index 30.90 (81.65 kg, 162.56 cm) jb4 ED Course: 05:10 Patient arrived in ED. jb4 05:10 Arm band placed on right wrist. jb4 05:13 Triage completed. jb4 05:14 Jose Shah DO is Attending Physician. ms3 05:24 Mode Bhatt, RN is Primary Nurse. jb4 05:53 CBC with Diff Sent. jb4 05:53 CMP Sent. jb4 05:53 Lipase Sent. jb4 07:11 Attending Physician role handed off by Jose Shah DO cha 07:11 Justus Kolb MD is Attending Physician. [facility] 08:22 Patient has correct armband on for positive identification. Bed in low position. Call ph light in reach. Side rails up X 1. Pulse ox on. NIBP on. 08:23 No provider procedures requiring assistance completed. ph 08:36 IV discontinued, intact, bleeding controlled, No redness/swelling at site. Pressure ph dressing applied. Administered Medications: 05:52 Drug: NS 0.9% 1000 ml Route: IV; Rate: 1 bolus; Site: right hand; 4 08:16 Follow up: Response: No adverse reaction; IV Status: Completed infusion ph 05:53 Drug: TORadol - (ketorolac) 15 mg Route: IVP; Site: right antecubital; 4 08:16 Follow up: Response: No adverse reaction ph 05:53 Drug: Zofran (Ondansetron) 4 mg Route: IVP; Site: right antecubital; [facility] 08:16 Follow up: Response: No adverse reaction ph Medication: 08:22 VIS not applicable for this client. ph Outcome: 08:06 Discharge ordered by . thomas 08:36 Discharged to home ambulatory. ph 08:36 Condition: good 08:36 Discharge instructions given to patient, Instructed on discharge instructions, follow up and referral plans. medication usage, Demonstrated understanding of instructions, follow-up care, medications, Prescriptions given X 2. 08:36 Patient left the ED. ph Signatures: Justus Kolb MD MD cha Hall, Patricia, RN RN ph Mode Bhatt RN RN [facility] Jose Shah DO DO ms3
--- NOTE | 2022-07-04 08:06 | EDPHYS ---
Physician Documentation [facility] Name: Marjan Kolb Age: 67 yrs Sex: Female : 1955 Arrival Date: 07/04/2022 Time: 05:10 Bed 7 Private MD: ED Justus Harry HPI: 07/04 05:28 This 67 yrs old Female presents to ER via EMS with complaints of Left flank pain. ms3 05:28 67-year-old female with past medical history of anxiety, atrial fibrillation, bipolar ms3 disorder, esophageal varices, HIV presents for left flank pain that began tonight. Patient states her pain is a 10/10 and sharp. Patient denies alleviating or inciting factors. Patient states this pain is different than the past. . Historical: - Allergies: 05:10 Azithromycin; jb4 05:10 Bactrim; jb4 05:10 butorphanol; jb4 05:10 Fentanyl; jb4 05:10 Reglan; jb4 05:10 Sulfa (Sulfonamide Antibiotics); jb4 05:10 TRIMETHOPRIM; jb4 - Home Meds: 05:10 clopidogrel Oral [Active]; jb4 - PMHx: 05:10 Anxiety; Atrial fibrillation; Bipolar disorder; esophageal varicies; Hepatitis; HIV jb4 positive; Hypertensive disorder; Migraine; panic attack; - Immunization history:: Adult Immunizations unknown. - Social history:: Smoking status: unknown. ROS: 05:28 Constitutional: Negative for fever, and chills. Neck: Negative for injury, pain, and ms3 swelling, Cardiovascular: Negative for chest pain, and palpitations. Respiratory: Negative for shortness of breath, cough, wheezing, and pleuritic chest pain, Abdomen/GI: Negative for abdominal pain, nausea, vomiting, diarrhea, and constipation, MS/Extremity: Negative for injury and deformity, Skin: Negative for injury, rash, and discoloration. 05:28 All other systems are negative. Exam: 05:28 Constitutional: This is a well developed, well nourished patient who is awake, alert, ms3 and in no acute distress. Head/Face: Normocephalic, atraumatic. Chest/axilla: Normal chest wall appearance and motion. Nontender with no deformity. Cardiovascular: Regular rate and rhythm with a normal S1 and S2. No gallops, murmurs, or rubs. Normal PMI, no JVD. No pulse deficits. Respiratory: Lungs have equal breath sounds bilaterally, clear to auscultation and percussion. No rales, rhonchi or wheezes noted. No increased work of breathing, no retractions or nasal flaring. Abdomen/GI: Soft, non-tender, with normal bowel sounds. No distension or tympany. No guarding or rebound. No evidence of tenderness throughout. 05:28 Back: pain, that is moderate, ROM is normal, normal spinal alignment noted, CVA tenderness, that is moderate, is noted on the left, vertebral tenderness, is not appreciated. Vital Signs: 05:19 BP 217 / 108; Pulse 77; Resp 16; Temp 98.4(O); Pulse Ox 97% on R/A; Weight 81.65 kg jb4 (R); Height 5 ft. 4 in. (162.56 cm) (R); Pain 10/10; 06:25 BP 171 / 84; Pulse 66; Resp 16; Pulse Ox 94% on R/A; jb4 08:34 BP 174 / 80; Pulse 68; Resp 18; Temp 97.8; Pulse Ox 98% on R/A; ph 05:19 Body Mass Index 30.90 (81.65 kg, 162.56 cm) jb4 MDM: 05:19 Patient medically screened. ms3 05:28 Differential diagnosis: nephrolithiasis, pyelonephritis, UTI. ms3 20:23 Data reviewed: vital signs, nurses notes, lab test result(s), radiologic studies, and ms3 as a result, I will discharge patient. Consideration of Admission/Observation Escalation of care including admission/observation considered. No emergent need for hospitalization identified. I considered the following discharge prescriptions or medication management in the emergency department Medications were administered in the Emergency Department. See MAR. Historians other than the Patient: EMS: [facility]. Counseling: I had a detailed discussion with the patient and/or guardian regarding: the historical points, exam findings, and any diagnostic results supporting the discharge/admit diagnosis, lab results, radiology results, the need for outpatient follow up, to return to the emergency department if symptoms worsen or persist or if there are any questions or concerns that arise at home. 07/04 05:19 Order name: CBC with Diff ms3 07/04 05:19 Order name: CMP ms3 07/04 05:19 Order name: Lipase ms3 07/04 05:19 Order name: Urine Microscopic Only ms3 07/04 05:55 Order name: CBC with Automated Diff; Complete Time: 06:57 EDMS 07/04 06:10 Order name: Comprehensive Metabolic Panel; Complete Time: 06:57 EDMS 07/04 05:19 Order name: CT Abd/Pelvis - Without Contrast ms3 07/04 05:19 Order name: IV Saline Lock; Complete Time: 05:53 ms3 07/04 05:19 Order name: Labs collected and sent; Complete Time: 05:53 ms3 07/04 06:10 Order name: Lipase; Complete Time: 06:57 EDMS 07/04 07:55 Order name: Urine Dipstick-Ancillary EDMS 07/04 05:19 Order name: Urine Dipstick-Ancillary (obtain specimen); Complete Time: 08:16 ms3 Administered Medications: 05:52 Drug: NS 0.9% 1000 ml Route: IV; Rate: 1 bolus; Site: right hand; jb4 08:16 Follow up: Response: No adverse reaction; IV Status: Completed infusion ph 05:53 Drug: TORadol - (ketorolac) 15 mg Route: IVP; Site: right antecubital; jb4 08:16 Follow up: Response: No adverse reaction ph 05:53 Drug: Zofran (Ondansetron) 4 mg Route: IVP; Site: right antecubital; jb4 08:16 Follow up: Response: No adverse reaction ph Disposition Summary: 07/04/22 08:06 Discharge Ordered Location: Home thomas Problem: new thomas Symptoms: have improved thomas Condition: Stable thomas Diagnosis - Strain of muscle and tendon of back wall of thorax thomas - Essential (primary) hypertension thomas Followup: thomas - With: Private Physician - When: 2 - 3 days - Reason: Recheck today's complaints, Continuance of care, Re-evaluation by your physician Discharge Instructions: - Discharge Summary Sheet thomas - Hypertension, Adult thomas - Muscle Strain thomas - Muscle Pain, Adult thomas - Hypertension, Adult, Zszy-yg-Zkbj thomas - Muscle Strain, Tgsx-lh-Kibn thomas - Managing Your Hypertension thomas Forms: - Medication Reconciliation Form thomas - Thank You Letter thomas - Antibiotic Education thomas - Prescription Opioid Use thomas Prescriptions: - Cyclobenzaprine 5 mg Oral Tablet - take 1 tablet by ORAL route 3 times per day As needed; 15 tablet; Refills: 0, thomas Product Selection Permitted - Tylenol 325 mg Oral Tablet - take 2 tablets by ORAL route every 6 hours as needed; 1 bottle; Refills: 0, thomas Product Selection Permitted Signatures: Dispatcher [employer] Justus Long MD MD cha Hall, Patricia, RN RN Mode Bhatt RN RN jb4 Jose Shah DO DO ms3
[2022-07-04 08:44] VITALS: BP 174/80; TEMP 97.8; O2SAT 98
--- NOTE | 2022-07-04 18:16 | RAD REPORT ---
EXAM DESCRIPTION: CT Abdomen and Pelvis Without Intravenous Contrast CLINICAL HISTORY: The patient is 67 years old and is Female; FLANK PAIN TECHNIQUE: Axial computed tomography images of the abdomen and pelvis without intravenous contrast. Sagittal and coronal reformatted images were created and reviewed. This CT exam was performed usi ng one or more of the following dose reduction techniques: automated exposure control, adjustment o f the mA and/or kV according to patient size, and/or use of iterative reconstruction technique. COMPARISON: No relevant prior studies available. FINDINGS: Lung bases: Unremarkable. No mass. No consolidation. ABDOMEN: Liver: Unremarkable. Gallbladder and bile ducts: Gallbladder is surgically absent. No ductal dilation. Pancreas: Unremarkable. No ductal dilation. Spleen: Unremarkable. No splenomegaly. Adrenals: Unremarkable. No mass. Kidneys and ureters: Simple cysts in the kidneys. ACR White Paper guidelines (Herhill, et al. JACR 2018; 15(2):264-273) suggest no follow-up is necessary. No obstructing stones. No hydronephrosis. Stomach and bowel: Unremarkable. No obstruction. No mucosal thickening. PELVIS: Appendix: No findings to suggest acute appendicitis. Bladder: Unremarkable. Reproductive: Unremarkable as visualized. ABDOMEN and PELVIS: Intraperitoneal space: Unremarkable. No free air. No significant fluid collection. Bones/joints: Disc space narrowing with degenerative endplate changes in the spine. No acute fracture. No dislocation. Soft tissues: Mild subcutaneous stranding in the right posterior soft tissues. Vasculature: Scattered atherosclerotic vascular calcifications. No abdominal aortic aneurysm. Lymph nodes: Unremarkable. No enlarged lymph nodes. IMPRESSION: No acute finding in the abdomen/pelvis. Electronically signed by: Karan Cabezas MD 07/04/2022 7:02 AM PERFORMANCE INSTRUCTOR Due to temporary technical issues with the PACS/Fluency reporting system, reports are being signed by the in house radiologists without review as a courtesy to insure prompt reporting. The interpreting radiologist is fully responsible for the content of the report.
== END 2022-07-04 08:36 | disposition home or self-care (01) ==
LOC: ER 05:06
DX: S29.012A Strain of muscle and tendon of back wall of thorax, initial encounter (principal); I10 Essential (primary) hypertension; Z21 Asymptomatic human immunodeficiency virus [HIV] infection status; Z88.1 Allergy status to other antibiotic agents; Z88.2 Allergy status to sulfonamides; Z88.8 Allergy status to other drugs, medicaments and biological substances
CPT/HCPCS: 96361; 85025; 36415; 81003; 83690; 80053; 74176; 96375; 96374; 99284; J7030; J2405

== ENCOUNTER 2022-07-05 21:01 | Emergency (ER) | payer OTHER ==
--- OUTSIDE RECORDS SUMMARY | 2022-07-05 21:24 | XMS REPORT | Continuity of Care Document ---
:1955 Author Organization [facility] t Address [address] [place] [address] Care Team Providers Name Role Phone Urmila [...] Clinician Unavailable Robbi Bal Attending Clinician [facility] Attending Clinician Unavailable Isaias Whiteside RN Attending Clinician Unavailable TOMY MARIE Attending Clinician Unavailable Reilly Means MD Attending Clinician Ofe Shields MD Attending Clinician Tomy Marie MD Attending Clinician Doctor Unassigned, El Socio Attending Clinician Unavailable Bill COLES Attending Clinician Unavailable Bill Rose Attending Clinician CHARITY MCALLISTER Attending Clinician Unavailable Charity Mcallister MD Attending Clinician GADIEL KOEHLER Attending Clinician Unavailable Mike Lund Attending Clinician Unavailable NIKOLAI REEVES Attending Clinician Unavailable Eliseo Arce MD Attending Clinician Carol Ann IZQUIERDO, Sarai Lieberman Attending Clinician [phone] Ashly Pelletier MA Attending Clinician Unavailable Dagoberto Bass MD Attending Clinician [place] Evangelista Attending Clinician Lab, [facility] Attending Clinician Unavailable Monica Rodas MA Attending Clinician Unavailable Agustina Ortiz MA Attending Clinician Unavailable Rody Maguire RN Attending Clinician Unavailable Remigio MD, Saraswathi V. Attending Clinician HEMATPOUR, BEVERLY Attending Clinician Unavailable Caridad SALGUERO, Gloria Attending Clinician Xiao RAMIREZ, Michael Corbin Attending Clinician Unavailable Team, [facility] Attending Clinician UnavailDO PORSHA Newell Attending Clinician Unavailable Gadiel Koehler MD Attending Clinician Tyrone JENKINS, Eveline Sierra Attending Clinician Eladio Colorado RN Attending Clinician Unavailable Geraldine SALGUERO, Leyda Attending Clinician [phone] Selvin RAMIREZ, Stefanie Attending Clinician Unavailable HOME MATTHEWS Admitting Clinician Unavailable ANETTE OLEA Admitting Clinician Unavailable TOMY MARIE Admitting Clinician Unavailable Frank JENKINS, Tomy Admitting Clinician Bill COLES Admitting Clinician Unavailable Lacey UrmilaBibianaFrancisco Kristen Admitting Clinician Unavailable Mike Lund Admitting Clinician Unavailable ELISEO ARCE Admitting Clinician Unavailable DO PORSHA STERETER Admitting Clinician Unavailable Payers Payer Name Policy Type Policy Number Effective Date Expiration Date S gabino [facility] COMMUNITY PLAN [id number] 2012 STAR PLUS OON 00:00:00 [facility] [id number] 2019 DUAL COMPLETE HMO 00:00:00 [facility] [id number] 2019 PLUS 00:00:00 [facility] [id number] 2019 [facility] [place] STAR 00:00:00 [employer] MEDICARE ADV [id number] 2019 2019 00:00:00 00:00:00 Problems Condition Condition Condition Status Onset Resolution Last Treating Co mments Source Name Details Category Date Date Treatment Clinician Date Dyspnea, Dyspnea, Disease Active Unive rs unspecifie unspecifie 02-11 it y of d type d type 00:00: [place] [address] Medical Branch Gastropare Gastropare Disease Active Overview : Methodi sis sis 4-[address] 00:[facility] note l might be different from the original. Added automatic ally from request for surgery [id number] Dysphagia Dysphagia Disease Active Overview: Methodi 4-[address] 00:00: [facility] 00 note l might be different from the original. Added automatic ally from request for surgery [id number] CCL / EPS CCL / EPS Diagnosis [...] [facility] hoxazole 1-25 Clear 00:00: Garcia 00 [facility] trimetho DA Active SV [facility] prim 1-25 Clear 00:00: Garcia [facility] codeine DA Active SV N/V [facility] 1-25 Clear 00:00: Garcia [facility] Metoclop Propensi Active [place] ramide ty to 12-12 Health adverse 00:00: reaction 00 s BUTORPHA DRUG Active Unknown-Cmnt Un matt NOL INGREDI 11-25 ity of 00:00: [place] [facility] Butorpha Drug Active Unknown - [...] 2017- Univers INGREDI 2-08 ity of 00:00: [place] [facility] TRIMETHO DRUG Active Hives Univers [...] Date Stop Date Source Natural father Diabetes [facility] Natural father Other - see comments [facility] Natural father Coronary Heart [facility] [place] Disease [facility] Social History Social Habit Start Date Stop Date Quantity Comments Source History SDOH [facility] Frequency Hospita l History SDOH [facility] Std Drinks Hospit al History SDGA [facility] Exposure to 2022-04-30 2022-05-10 Yes University of SARS-CoV-2 (event) 00:00:00 10:25:00 [facility] Tobacco use and 2022-02-11 2022-02-11 Former smokeless Uni versity of exposure 00:00:00 00:00:00 tobacco user [facility] Tobacco Comment 2022-02-11 2022-02-11 Smokes approx 1-2 Un iversity of 00:00:00 00:00:00 cigarettes per [facility] day when she Branch smokes Alcohol intake 2020-12-08 2020-12-08 Current drinker [facility] 00:00:00 00:00:00 of [facility] (finding) Cigarettes smoked 2020-09-05 2020-09-[address] current (pack per 00:00[facility]00 [facility] - Reported Cigarette 2020-09-05 2020-09-05 [facility] pack-years 00:00:00 00:00:00 Hospital Alcohol Comment 2016-09-23 2016-09-23 rare [facility] 00:00:00 00:00:00 Hospital History of tobacco 2011-09-29 User of smokeless University of use 00:00:00 tobacco [facility] Sex Ass[birth year] At [birth year] [facility] 00:00:00 00:00:00 Smoking Status Start Date Stop Date Source Ex-smoker 2022-02-11 00:00:00 2022-02-11 00:00:00 Universi ty of [facility] Medications Ordered Filled Start Stop Current Ordering Indication Dosage Frequency Signature Comments Components Source Medication Medication Date Date Medication? Clinician (SIG) Name Name potassium 2021-05- No 10meq 10 mEq, IV Univers chloride in 07-11 Piggyback, i ty of water 10 20:00: 22:00 ONCE, 1 [place] mEq/100 mL 00 :00 dose, On Medic al RTU 10 mEq [facility] 05/10/22 at 1400, Administer over 60 Minutes, 100 mL magnesium 2021-05 No 800mg 800 mg, Uni vers oxide 07-11 Oral, ity of (MAG-OX 20:00: 19:37 ONCE, 1 [place] 400) tablet 00 :00 dose, On Medi porfirio 800 mg [facility] 05/10/22 at 1400, Routine KCL 2021-05- No 40meq 40 mEq, Univers (KLOR-CON 07-11 Oral, ity of M20) tablet 19:15: 19:37 ONCE, 1 [place] 40 mEq 00 :00 dose, On Medical [facility] 05/10/22 at 1315, JOE hydralAZINE 2021-05- No 10mg 10 mg, Uni vers (APRESOLINE 07-11 Slow IV ity of ) injection 18:45: 18:42 [place] 10 mg 00 :00 ONCE, 1 Medical dose, On [facility] 05/10/22 at 1245, JOE NaCl 0.9% 2021-05- No 1000mL at 999 Uni vers (NS) bolus 07-11 mL/hr, ity of infusion 17:45: 20:00 1,000 mL, [place] 1,000 mL 00 :00 IV Medical Infusion, Branch ONCE, 1 dose, On [facility] 05/10/22 at 1145, JOE cefpodoxime 2021-05- Yes [id number] 100mg Take 1 Univers 100 mg 2-17 12-25 tablet by ity of tablet 00:00: 05:59 mouth in [place] 00 :00 the [facility] Branch and 1 tablet in the evening. Do all this for 7 days. cefpodoxime 2021-05- Yes [id number] 100mg Take 1 Univers 100 mg 2-17 12-25 tablet by ity of tablet 00:00: 05:59 mouth in [place] 00 :00 the [facility] morning Branch and 1 tablet in the evening. Do all this for 7 days. cefpodoxime 2021-05- Yes [id number] 100mg Take 1 Univers 100 mg 2-17 12-25 tablet by ity of tablet 00:00: 05:59 mouth in [place] 00 :00 the Medical morning Branch and [...] Infusion, Medical ONCE, 1 Branch dose, On [facility] 05/06/22 at 1800, JOE ketorolac 2021-05 No 15mg 15 mg, Unive rs (TORADOL) 2-15 12-15 Slow IV ity of injection 22:00: 22:19 Push, [place] 15 mg 00 :00 ONCE, 1 Medical dose, On Branch [facility] 05/06/22 at 1600, JOE NaCl 0.9% 2021-05- No 1000mL at 999 Uni vers (NS) bolus 2-15 12-15 mL/hr, ity of infusion 22:00: 23:41 1,000 mL, [place] 1,000 mL 00 :00 IV Medical Infusion, Branch ONCE, 1 dose, On [facility] 05/06/22 at 1600, JOE ondansetron 2021-05- No 8mg 8 mg, Slow Univers (ZOFRAN 2-15 12-15 IV Push, ity of (PF)) 21:15: 22:19 ONCE, 1 [place] injection 8 00 :00 dose, On Medi porfirio mg [place] 05/06/22 at 1515, JOE ondansetron 2021-05 Yes [id number] 1-2 U nivers 4 mg tablet 2-15 tablets ity o f 00:00: every 8 [place] 00 hours as Medical needed for Branch nausea benzonatate 2021-05 Yes [id number] 200mg Take 1 Univers 200 mg 2-15 capsule by ity of capsule 00:00: mouth 3 [place] 00 (three) Medical times Branch daily as needed for Cough. albuterol 2021-05 Yes [id number] 2{puff} Inhale 2 Univers 90 2-15 Puffs ity of mcg/actuati 00:00: every 4 [place] on inhaler 00 (four) Medical hours as Branch needed for Wheezing or Shortness of Breath. butalbital- 2021-05 Yes [id number] 1{tbl} Take 1 Univers acetaminoph 2-15 tablet by ity of en-caff 00:00: mouth [place] 50-325-40 00 every 4 Medical mg tablet (four) Branch hours as needed (headache) . ondansetron 2021-05 Yes [id number] 1-2 U nivers 4 mg tablet 2-15 tablets ity o f 00:00: every 8 [place] 00 hours as Medical needed for Branch nausea benzonatate 2021-05 Yes [id number] 200mg Take 1 Univers 200 mg 2-15 capsule by ity of capsule 00:00: mouth 3 [place] 00 (three) Medical times Branch daily as needed for Cough. albuterol 2021-05 Yes [id number] 2{puff} Inhale 2 Univers 90 2-15 Puffs ity of mcg/actuati 00:00: every 4 [place] on inhaler 00 (four) Medical hours as Branch needed for Wheezing or Shortness of Breath. butalbital- 2021-05 Yes [id number] 1{tbl} Take 1 Univers acetaminoph 2-15 tablet by ity of en-caff 00:00: mouth [place] 50-325-40 00 every 4 Medical mg tablet (four) Branch hours as needed (headache) . ondansetron 2021-05 Yes [id number] 1-2 U nivers 4 mg tablet 2-15 tablets ity o f 00:00: every 8 [place] 00 hours as Medical needed for Branch nausea benzonatate 2021-05 Yes [id number] 200mg Take 1 Univers 200 mg 2-15 capsule by ity of capsule 00:00: mouth 3 [place] 00 (three) Medical times Branch daily as needed for Cough. albuterol 2021-05 Yes [id number] 2{puff} Inhale 2 Univers 90 2-15 Puffs ity of mcg/actuati 00:00: every 4 [place] on inhaler 00 (four) Medical hours as Branch needed for Wheezing or Shortness of Breath. butalbital- 2021-05 Yes [id number] 1{tbl} Take 1 Univers acetaminoph 2-15 tablet by ity of en-caff 00:00: mouth [place] 50-325-40 00 every 4 Medical mg tablet (four) Branch hours as needed (headache) . ondansetron 2021-05 Yes [id number] 1-2 U nivers 4 mg tablet 2-15 tablets ity o f 00:00: every 8 [place] 00 hours as Medical needed for Branch nausea benzonatate 2021-05 Yes [id number] 200mg Take 1 Univers 200 mg 2-15 capsule by ity of capsule 00:00: mouth 3 [place] 00 (three) Medical times Branch daily as needed for Cough. albuterol 2021-05 Yes [id number] 2{puff} Inhale 2 Univers 90 2-15 Puffs ity of mcg/actuati 00:00: every 4 [place] on inhaler 00 (four) Medical hours as Branch needed for Wheezing or Shortness of Breath. butalbital- 2021-05 Yes [id number] 1{tbl} Take 1 Univers acetaminoph 2-15 tablet by ity of en-caff 00:00: mouth [place] 50-325-40 00 every 4 Medical mg tablet (four) Branch hours as needed (headache) . ondansetron 2021-05 Yes [id number] 1-2 U nivers 4 mg tablet 2-15 tablets ity o f 00:00: every 8 [place] 00 hours as Medical needed for Branch nausea benzonatate 2021-05 Yes [id number] 200mg Take 1 Univers 200 mg 2-15 capsule by ity of capsule 00:00: mouth 3 [place] 00 (three) Medical times Branch daily as needed for Cough. albuterol 2021-05 Yes [id number] 2{puff} Inhale 2 Univers 90 2-15 Puffs ity of mcg/actuati 00:00: every 4 [place] on inhaler 00 (four) Medical hours as Branch needed for Wheezing or Shortness of Breath. butalbital- 2021-05 Yes [id number] 1{tbl} Take 1 Univers acetaminoph 2-15 tablet by ity of en-caff 00:00: mouth [place] 50-325-40 00 every 4 Medical mg tablet (four) Branch hours as needed (headache) . ondansetron 2021-05 Yes [id number] 1-2 U nivers 4 mg tablet 2-15 tablets ity o f 00:00: every 8 [place] 00 hours as Medical needed for Branch nausea benzonatate 2021-05 Yes [id number] 200mg Take 1 Univers 200 mg 2-15 capsule by ity of capsule 00:00: mouth 3 [place] 00 (three) Medical times Branch daily as needed for Cough. albuterol 2021-05 Yes [id number] 2{puff} Inhale 2 Univers 90 2-15 Puffs ity of mcg/actuati 00:00: every 4 [place] on inhaler 00 (four) Medical hours as Branch needed for Wheezing or Shortness of Breath. butalbital- 2021-05 Yes [id number] 1{tbl} Take 1 Univers acetaminoph 2-15 tablet by ity of en-caff 00:00: mouth [place] 50-325-40 00 every 4 Medical mg tablet (four) Branch hours as needed (headache) . nirmatrelvi 2021-05- Yes [id number] 2{tbl} Take 2 Univers r-ritonavir 2-15 12-21 tablets by i ty of (PAXLOVID, 00:00: 05:59 mouth in [place] EUA,) 300 00 :00 the Medical mg (150 mg morning Branch x 2)-100 mg and 2 tablet tablets in the evening. Do all this for 5 days. nirmatrelvi 2021-05- Yes [id number] 2{tbl} Take 2 Univers r-ritonavir 2-15 12-21 tablets by i ty of (PAXLOVID, 00:00: 05:59 mouth in [place] EUA,) 300 00 :00 the Medical mg (150 mg morning Branch x 2)-100 mg and 2 tablet tablets in the evening. Do all this for 5 days. nirmatrelvi 2021-05- Yes [id number] 2{tbl} Take 2 Univers r-ritonavir 2-15 12-21 tablets by i ty of (PAXLOVID, 00:00: 05:59 mouth in [place] EUA,) 300 00 :00 the Medical mg (150 mg morning Branch x 2)-100 mg and 2 tablet tablets in the evening. Do all this for 5 days. nirmatrelvi 2021-05- Yes [id number] 2{tbl} Take 2 Univers r-ritonavir 2-15 - [...] 04/22/22 at 1645, Routine amoxicillin 2021-05 Yes [id number] 1{tbl} Take 1 Univers -clavulanat 2- [id number] tablet by i ty of e 875-125 00:00: mouth [place] mg per 00 every 12 Medical tablet (twelve) Branch hours. ondansetron 2021-05 Yes [id number] 4mg Take 1 Univers 4 mg 2- 123956 tablet by ity of disintegrat 00:00: mouth [place] ing tablet 00 every 8 Medica l (eight) Branch hours as needed for Nausea and Vomiting (N/V). amoxicillin 2021-05 Yes [id number] 1{tbl} Take 1 Univers -clavulanat 2- [id number] tablet by i ty of e 875-125 00:00: mouth [place] mg per 00 every 12 Medical tablet (twelve) Branch hours. ondansetron 2021-05 Yes [id number] 4mg Take 1 Univers 4 mg 2-01 [id number] tablet by ity of disintegrat 00:00: mouth [place] ing tablet 00 every 8 Medica l (eight) Branch hours as needed for Nausea and Vomiting (N/V). amoxicillin 2021-05 Yes [id number] 1{tbl} Take 1 Univers -clavulanat 2-01 [id number] tablet by i ty of e 875-125 00:00: mouth [place] mg per 00 every 12 Medical tablet (twelve) Branch hours. ondansetron 2021-05 Yes [id number] 4mg Take 1 Univers 4 mg 2-01 [id number] tablet by ity of disintegrat 00:00: mouth [place] ing tablet 00 every 8 Medica l (eight) Branch hours as needed for Nausea and Vomiting (N/V). amoxicillin 2021-05 Yes [id number] 1{tbl} Take 1 Univers -clavulanat 2-01 [id number] tablet by i ty of e 875-125 00:00: mouth [place] mg per 00 every 12 Medical tablet (twelve) Branch hours. ondansetron 2021-05 Yes [id number] 4mg Take 1 Univers 4 mg 2-01 [id number] tablet by ity of disintegrat 00:00: mouth [place] ing tablet 00 every 8 Medica l (eight) Branch hours as needed for Nausea and Vomiting (N/V). amoxicillin 2021-05 Yes [id number] 1{tbl} Take 1 Univers -clavulanat 2-01 [id number] tablet by i ty of e 875-125 00:00: mouth [place] mg per 00 every 12 Medical tablet (twelve) Branch hours. ondansetron 2021-05 Yes [id number] 4mg Take 1 Univers 4 mg 2- [id number] tablet by ity of disintegrat 00:00: mouth [place] ing tablet 00 every 8 Medica l (eight) Branch hours as needed for Nausea and Vomiting (N/V). amoxicillin 2021-05 Yes [id number] 1{tbl} Take 1 Univers -clavulanat 2-01 [id number] tablet by i ty of e 875-125 00:00: mouth [place] mg per 00 every 12 Medical tablet (twelve) Branch hours. ondansetron 2021-05 Yes [id number] 4mg Take 1 Univers 4 mg 2-01 [id number] tablet by ity of disintegrat 00:00: mouth [place] ing tablet 00 every 8 Medica l (eight) Branch hours as needed for Nausea and Vomiting (N/V). amoxicillin 2021-05 Yes [id number] 1{tbl} Take 1 Univers -clavulanat 2-01 [id number] tablet by i ty of e 875-125 00:00: mouth [place] mg per 00 every 12 Medical tablet (twelve) Branch hours. ondansetron 2021-05 Yes [id number] 4mg Take 1 Univers 4 mg 2-01 [id number] tablet by ity of disintegrat 00:00: mouth [place] ing tablet 00 every 8 Medica l (eight) Branch hours as needed for Nausea and Vomiting (N/V). amoxicillin 2021-05 Yes [id number] 1{tbl} Take 1 Univers -clavulanat 06-23 [id number] tablet by i ty of e 875-125 00:00: mouth [place] mg per 00 every 12 Medical tablet (twelve) Branch hours. ondansetron 2021-05 Yes [id number] 4mg Take 1 Univers 4 mg 06-23 [id number] tablet by ity of disintegrat 00:00: mouth [place] ing tablet 00 every 8 Medica l (eight) Branch hours as needed for Nausea and Vomiting (N/V). zoster 2021-05- No [id number] .5mL 0.5 mL by Univers vaccine, 0-14 10-15 9104 Intramuscu ity of recombinant 00:00: 04:59 lar route [place] (SHINGRIX, 00 :00 once now Medic al PF,) for 1 Branch injection dose. And repeat in 2-6 months zoster 2021-05- No [id number] .5mL 0.5 mL by Univers vaccine, 0-14 10-15 9104 Intramuscu ity of recombinant 00:00: 04:59 lar route [place] (SHINGRIX, 00 :00 once now Medic al PF,) for 1 Branch injection dose. And repeat in 2-6 months zoster 2021-05- No [id number] .5mL 0.5 mL by Univers vaccine, 0-14 [...] o f 1 mg tablet 19:28: at [place] [address] bedtime. Medical Branch traZODone 2021-0 Yes 50mg Take 50 mg Un matt 100 mg 9-27 by mouth ity of tablet 19:28: at [place] [address] bedtime. Medical Branch hydralAZINE 2021-0 Yes 25mg [...] 100 mg 04 (two) Medical tablet times [place] daily. amLODIPine 2021-0 Yes 10mg Take 10 mg U nivers (NORVASC) 9-27 by mouth ity of 10 mg 19:28: daily. [place] tablet 04 Medical Branch clonazePAM 2021-0 Yes 1mg Take 1 mg Un matt (KLONOPIN) 9-27 by mouth ity o f 1 mg tablet 19:28: at [place] [address] bedtime. Medical Branch traZODone 2021-0 Yes 50mg Take 50 mg Un mtat 100 mg 9-27 by mouth ity of tablet 19:28: at [place] [address] bedtime. Medical Branch hydralAZINE 2021-0 Yes 25mg [...] o f 1 mg tablet 19:28: at [place] [address] bedtime. Medical Branch traZODone 2021-0 Yes 50mg Take 50 mg Un matt 100 mg 9-27 by mouth ity of tablet 19:28: at [place] [address] bedtime. Medical Branch hydralAZINE 2021-0 Yes 25mg [...] o f 1 mg tablet 19:28: at [place] [address] bedtime. Medical Branch traZODone 2021-0 Yes 50mg Take 50 mg Un matt 100 mg 9-27 by mouth ity of tablet 19:28: at [place] [address] bedtime. Medical Branch hydralAZINE 2021-0 Yes 25mg [...] o f 1 mg tablet 19:28: at [place] [address] bedtime. Medical Branch traZODone 2021-0 Yes 50mg Take 50 mg Un matt 100 mg 9- by mouth ity of tablet 19:28: at [place] [address] bedtime. Medical Branch hydralAZINE 2021-0 Yes 25mg [...] o f 1 mg tablet 19:28: at [place] [address] bedtime. Medical Branch traZODone 2022-0 Yes 50mg Take 50 mg Un matt 100 mg 9-27 by mouth ity of tablet 19:28: at [place] [address] bedtime. Medical Branch hydralAZINE 2-0 Yes 25mg [...] o f 1 mg tablet 19:28: at [place] [address] bedtime. Medical Branch traZODone 2-0 Yes 50mg Take 50 mg Un matt 100 mg 9-27 by mouth ity of tablet 19:28: at [place] [address] bedtime. Medical Branch hydralAZINE 2021-0 Yes 25mg [...] o f 1 mg tablet 19:28: at [place] [address] bedtime. Medical Branch traZODone 2022-0 Yes 50mg Take 50 mg Un matt 100 mg 9-27 by mouth ity of tablet 19:28: at [place] [address] bedtime. Medical Branch hydralAZINE 2-0 Yes 25mg [...] o f 1 mg tablet 19:28: at [place] [address] bedtime. Medical Branch traZODone 2-0 Yes 50mg Take 50 mg Un matt 100 mg 9-27 by mouth ity of tablet 19:28: at [place] [address] bedtime. Medical Branch hydralAZINE 2-0 Yes 25mg [...] o f 1 mg tablet 19:28: at [place] [address] bedtime. Medical Branch traZODone 2021-0 Yes 50mg Take 50 mg Un matt 100 mg 9-27 by mouth ity of tablet 19:28: at [place] [address] bedtime. Medical Branch hydralAZINE 2021-0 Yes 25mg [...] o f 1 mg tablet 19:28: at [place] [address] bedtime. Medical Branch traZODone 2021-0 Yes 50mg Take 50 mg Un matt 100 mg 9-27 by mouth ity of tablet 19:28: at [place] [address] bedtime. Medical Branch hydralAZINE 2021-0 Yes 25mg [...] o f 1 mg tablet 19:28: at [place] [address] bedtime. Medical Branch traZODone 2-0 Yes 50mg Take 50 mg Un matt 100 mg 9-27 by mouth ity of tablet 19:28: at [place] [address] bedtime. Medical Branch hydralAZINE 2-0 Yes 25mg [...] o f 1 mg tablet 19:28: at [place] [address] bedtime. Medical Branch traZODone 2021-0 Yes 50mg Take 50 mg Un matt 100 mg 9-27 by mouth ity of tablet 19:28: at [place] [address] bedtime. Medical Branch hydralAZINE 2021-0 Yes 25mg [...] o f 1 mg tablet 19:28: at [place] [address] bedtime. Medical Branch traZODone 2021-0 Yes 50mg Take 50 mg Un matt 100 mg 9-27 by mouth ity of tablet 19:28: at [place] [address] bedtime. Medical Branch hydralAZINE 2021-0 Yes 25mg [...] mouth ity of 10 mg 19:28: daily. [place] tablet 04 Medical Branch clonazePAM 2021-0 Yes 1mg Take 1 mg Un matt (KLONOPIN) 9-27 by mouth ity o f 1 mg tablet 19:28: at [place] [address] bedtime. Medical Branch traZODone 2021-0 Yes 50mg Take 50 mg Un matt 100 mg 9-27 by mouth ity of tablet 19:28: at [place] [address] bedtime. Medical Branch hydralAZINE 2021-0 Yes 25mg [...] o f 1 mg tablet 19:28: at [place] [address] bedtime. Medical Branch traZODone Yes 50mg Take 50 mg Un matt 100 mg 02-16 by mouth ity of tablet 19:28: at [place] [address] bedtime. Medical Branch cefpodoxime 2021- No [id number] 200mg Take 1 Univers 200 mg 02-16 tablet by ity of tablet 00:00: 04:59 mouth in [place] 00 :00 the Medical morning Branch and 1 tablet in the evening. Do all this for 3 days. cefpodoxime 2021- No [id number] 200mg Take 1 Univers 200 mg 02-16 tablet by ity of tablet 00:00: 04:59 mouth in [place] 00 :00 the Medical morning Branch and 1 tablet in the evening. Do all this for 3 days. haloperidol 2021- No 2mg 2 mg, Slow Univers lactate 02-15 IV Push, ity of (HALDOL) 09:00: 09:12 ONCE, 1 [place] injection 2 00 :00 dose, On Medi porfirio mg Mon Branch 02/15/22 at 0400, Routine hydroCHLORO Yes 25mg 25 mg, Univ ers thiazide 9-25 Oral, ity of (ESIDRIX) 14:00: DAILY, [place] capsule 25 00 First dose Med ical mg on Sun Branch 02/14/22 at 0900, Until Discontinu ed, Routine butalbital- Yes 1{tbl} 1 tablet, Univers acetaminoph - Oral, ity of en-caff 18:46: Q6HPRN, [place] (ESGIC) 06 Starting Medical 50-325-40 on Sat [...] 2,000 mg in 17:00: 18:24 Piggyback, [place] NaCl 0.9% 00 :00 Q24H ABX, Medic [...] (MYCOLOG) 19:00: dose on [place] cream 00 [facility] Medical 02/11/22 at Branch 1400, Until Discontinu ed, Routine busPIRone 202-0 Yes 30mg 30 mg, Univer s (BUSPAR) 02-11 Oral, BID, ity o f tablet 30 18:00: First dose [place] mg 00 on [facility] Medical 02/11/22 at Branch 1300, Until Discontinu ed, Routine raltegravir 2021-0 Yes 400mg 400 mg, Un matt (ISENTRESS) 02-11 Oral, BID, it y of tablet 400 18:00: First dose [place] mg 00 on [facility] Medical 02/11/22 at Branch 1300, Until Discontinu ed, JOE metoprolol 2021-0 Yes 100mg 100 mg, Uni vers tartrate 02-11 Oral, BID, ity o f (LOPRESSOR) 18:00: First dose [place] tablet 100 00 on [facility] mg 02/11/22 at Branch 1300, Until Discontinu ed, Routine lisinopriL 2021-0 Yes 40mg 40 mg, Unive rs (PRINIVIL,Z 02-11 Oral, BID, it y of ESTRIL) 18:00: First dose [place] tablet 40 00 on [facility] mg 02/11/22 at Branch 1300, Until Discontinu ed, Routine emtricitabi 2021-0 Yes 1{tbl} 1 tablet, [facility] Oral, ity of r alafen 18:00: DAILY, [place] (DESCOVY) 00 First dose Medi porfirio tablet 1 on [facility] tablet 02/11/22 at 1300, Until Discontinu ed, Routine ipratropium 2021-0 Yes .5mg 0.5 mg, Uni vers (ATROVENT) 02-11 Inhalation ity of 0.02 % 17:57: , MERY, [place] nebulizer 10 Starting Medica l solution on [facility] Branch 0.5 mg 02/11/22 at [...] Medical (after Branch last modificati on) on [facility] 02/11/22 at 1230, Until Discontinu ed, Routine HYDROcodone 2021- No 1{tbl} 1 tablet, Univers -acetaminop 02-11 Oral, ity of hen (NORCO 14:11: 17:37 Q6HPRN, [place] as 5) 5-325 mg 03 :24 Starting Medi porfirio tablet 1 on [facility] Branch tablet 02/11/22 at 0911, Until Tue02/12/22 at 1237, Routine, Pain (scale 7-10) melatonin Yes 3mg 3 mg, Univers (MELATIN) 02-11 Oral, ity of tablet 3 mg 14:08: QHSPRN, [place] as 17 Starting Medical on [facility] Branch 02/11/22 at 0908, Until Discontinu ed, Routine, Insomnia acetaminoph 2021- No 1{tbl} 1 tablet, Univers en-codeine 02-11 Oral, ity of (TYLENOL 14:06: 17:37 Q6HPN, [place] #3) 300-30 19 :24 Starting Medic al mg tablet 1 on [facility] Branch tablet 02/11/22 at 0906, Until Tue02/12/22 at 1237, Routine, Pain (scale 4-6) sennosides- Yes 1{tbl} 1 tablet, Univers docusate 02-11 Oral, ity of sodium 14:06: QDAILYPRN, [place] (SENOKOT-S) 09 Starting Medi porfirio 8.6-50 mg on [facility] Branch per tablet 02/11/22 at 1 tablet 0906, Until Discontinu ed, Routine, Constipati on ondansetron Yes 4mg 4 mg, Slow Univers (ZOFRAN 02-11 IV Push, ity of (PF)) 14:05: Q6HPRN, [place] injection 4 59 Starting Medi porfirio mg on [place] Branch 02/11/22 at 0905, Until Discontinu ed, Routine, Nausea and Vomiting (N/V) acetaminoph Yes 650mg 650 mg, Un matt en 02-11 Oral, ity of (TYLENOL) 14:04: Q6HPRN, [place] tablet 650 37 Starting Medic al mg [...] of ) 25 mg 09:10: daily. [place] tablet 54 [facility] amLODIPine 0 Yes 10mg Take 10 mg U nivers (NORVASC) 02-11 by mouth ity of 10 mg 09:10: daily. [place] tablet 54 [facility] piperacilli 2021- No 3.375g 3.375 g, [...] of therapy: 72 hours iopamidol 2- No [id number] 60mL 60 mL, Univers (ISOVUE 02-11 Intravenou [...] injection 4 00 :00 dose, On Medi pofririo mg [place] Branch 02/11/22 at 0300, JOE ondansetron 2021- No 4mg 4 mg, Slow Univers (ZOFRAN 02-11 IV Push, ity of (PF)) 05:45: 05:08 ONCE, 1 [place] injection 4 00 :00 dose, On Medi porfirio mg [facility] Branch 02/11/22 at 0045, JOE acetaminoph 2021- No 975mg 975 mg, U nivers en 02-11 Oral, ity of (TYLENOL) 05:15: 04:19 ONCE, 1 [place] tablet 975 00 :00 dose, On Medic al mg [facility] Branch 02/11/22 at 0015, JOE emtricitabi 0 Yes [id number] Take one Univers ne-tenofovi 9-12 po daily ity of r alafen 00:00: [place] (DESCOVY) 00 Medical tablet Branch emtricitabi 0 Yes [id number] Take one Univers ne-tenofovi 9-12 po daily ity of r alafen 00:00: [place] (DESCOVY) Medical tablet Branch emtricitabi 0 Yes [id number] Take one Univers ne-tenofovi 9-12 po daily ity of r alafen 00:00: [place] (DESCOVY) 00 Medical tablet Branch emtricitabi 0 Yes [id number] Take one Univers ne-tenofovi 9-12 po daily ity of r alafen 00:00: [place] (DESCOVY) 00 Medical tablet Branch emtricitabi Yes [id number] Take one Univers ne-tenofovi 9-12 po daily ity of r alafen 00:00: [place] (DESCOVY) 00 Medical tablet Branch emtricita Yes [id number] Take one Univers ne-tenofovi 9-12 po daily ity of r alafen 00:00: [place] (DESCOVY) 00 Medical tablet Branch emtricita Yes [id number] Take one Univers ne-tenofovi 9-12 po daily ity of r alafen 00:00: [place] (DESCOVY) 00 Medical tablet Branch emtricita Yes [id number] Take one Univers ne-tenofovi 9-12 po daily ity of r alafen 00:00: [place] (DESCOVY) 00 Medical tablet Branch emtricita Yes [id number] Take one Univers ne-tenofovi 9-12 po daily ity of r alafen 00:00: [place] (DESCOVY) 00 Medical [facility] [id number] Take one Univers ne-tenofovi 9-12 po daily ity of r alafen 00:00: [place] (DESCOVY) 00 Medical tablet Branch emtriccare one at [facility] Yes [id number] Take one Univers ne-tenofovi 9-12 po daily ity of r alafen 00:00: [place] (DESCOVY) 00 Medical tablet Branch emtricita Yes [id number] Take one Univers ne-tenofovi 9-12 po daily ity of r alafen 00:00: [place] (DESCOVY) 00 Medical tablet Branch emtricita Yes [id number] Take one Univers ne-tenofovi 9-12 po daily ity of r alafen 00:00: [place] (DESCOVY) 00 Medical tablet Branch emtricita Yes [id number] Take one Univers ne-tenofovi 9-12 po daily ity of r alafen 00:00: [place] (DESCOVY) 00 Medical tablet Branch emtricita Yes [id number] Take one Univers ne-tenofovi 9-12 po daily ity of r alafen 00:00: [place] (DESCOVY) 00 Medical tablet Branch emtricitabi 2021-0 Yes [id number] Take one Univers ne-tenofovi 9-12 po daily ity of r alafen 00:00: [place] (DESCOVY) Medical tablet Branch emtricitabi 2021-0 Yes [id number] Take one Univers ne-tenofovi 9-12 po daily ity of r alafen 00:00: [place] (DESCOVY) Medical tablet Branch naproxen 2021-0 Yes [id number] 500mg Take 1 U nivers (NAPROSYN) 7-24 tablet by ity of 500 mg 00:00: mouth in [place] tablet 00 the Medical morning Branch and 1 tablet in the evening. Take with meals. methocarbam 2021-0 Yes [id number] 500mg Take 1 Univers oL 500 mg 7-24 tablet by ity o f tablet 00:00: mouth 4 [place] [address] ([facility]) [facility] times [place] daily. naproxen 2021-0 Yes [id number] 500mg Take 1 U nivers (NAPROSYN) 7-24 tablet by ity of 500 mg 00:00: mouth in [place] tablet 00 the Medical morning Branch and 1 tablet in the evening. Take with meals. methocarbam 2021-0 Yes [id number] 500mg Take 1 Univers oL 500 mg 7-24 tablet by ity o f tablet 00:00: mouth 4 [place] ([facility]) [facility] times [place] daily. naproxen 2021-0 Yes [id number] 500mg Take 1 U nivers (NAPROSYN) 7-24 tablet by ity of 500 mg 00:00: mouth in [place] tablet 00 the Medical morning Branch and 1 tablet in the evening. Take with meals. methocarbam 2021-0 Yes [id number] 500mg Take 1 Univers oL 500 mg 7-24 tablet by ity o f tablet 00:00: mouth 4 [place] ([facility]) [facility] times [place] daily. naproxen 2021-0 2022- No [id number] 500mg Take 1 Univers (NAPROSYN) 7-24 10-14 tablet by ity of 500 mg 00:00: 00:00 mouth in [place] tablet 00 :00 the Medical morning Branch and 1 tablet in the evening. Take with meals. methocarbam 2021-0 2022- No [id number] 500mg Take 1 Univers oL 500 mg 7-24 10-14 tablet by ity of tablet 00:00: 00:00 mouth 4 [place] 00 :00 (four) Medical times Branch daily. naproxen 2021- No [id number] 500mg Take 1 Univers (NAPROSYN) 12-13 tablet by ity of 500 mg 00:00: 00:00 mouth in [place] tablet 00 :00 the Medical morning Branch and 1 tablet in the evening. Take with meals. methocarbam 2021- No [id number] 500mg Take 1 Univers oL 500 mg [...] daily. Branch traZODONE 2021- No Take by [facility] ers (DESYREL) 11-20 mouth at ity o f 10 mg/mL 09:10: 00:00 bedtime. [place] oral 28 :00 Medical suspension Branch hydralAZINE Yes 25mg Take 25 mg Univers (APRESOLINE 11-20 by mouth ity of ) 25 mg 08:47: daily. [place] tablet 47 Medical Branch cephALEXin 2021- No [id number] 500mg Take 1 Univers (KEFLEX) 10-24 capsule [...] Indication s: acute pain buPROPion 0 Yes [id number] 150mg Take 1 U nivers XL 4-12 tablet by ity of (WELLBUTRIN 00:00: mouth [place] XL) 150 mg 00 daily. Medical 24 hr Branch tablet busPIRone 2021-0 Yes [id number] 30mg Take 1 Un matt 30 mg 4-12 tablet by ity of tablet 00:00: mouth 2 [place] 00 (two) Medical times Branch daily. SERTraline 2021-0 Yes [id number] 200mg Take 2 Univers 100 mg 4-12 tablets by ity of tablet 00:00: mouth [place] 00 daily. Medical Branch buPROPion 0 Yes [id number] 150mg Take 1 U nivers XL 4-12 tablet by ity of (WELLBUTRIN 00:00: mouth [place] XL) 150 mg 00 daily. Medical 24 hr Branch tablet busPIRone 2021-0 Yes [id number] 30mg Take 1 Un matt 30 mg 4-12 tablet by ity of tablet 00:00: mouth 2 [place] 00 (two) Medical times Branch daily. SERTraline 2021-0 Yes [id number] 200mg Take 2 [facility] 100 mg 4-12 tablets by ity of tablet 00:00: mouth [place] 00 daily. Medical Branch buPROPion 2021-0 Yes [id number] 150mg Take 1 U nivers XL 4-12 tablet by ity of (WELLBUTRIN 00:00: mouth [place] XL) 150 mg 00 daily. Medical 24 hr Branch tablet busPIRone 2021-0 Yes [id number] 30mg Take 1 Un matt 30 mg 4-12 tablet by ity of tablet 00:00: mouth 2 [place] 00 (two) Medical times Branch daily. SERTraline 2021-0 Yes [id number] 200mg Take 2 Univers 100 mg 4-12 tablets by ity of tablet 00:00: mouth [place] 00 daily. Medical Branch buPROPion 2021-0 Yes [id number] 150mg Take 1 U nivers XL 4-12 tablet by ity of (WELLBUTRIN 00:00: mouth [place] XL) 150 mg 00 daily. Medical 24 hr Branch tablet busPIRone 2021-0 Yes [id number] 30mg Take 1 Un matt 30 mg 4-12 tablet by ity of tablet 00:00: mouth 2 [place] 00 (two) Medical times Branch daily. SERTraline 0 Yes [id number] 200mg Take 2 Univers 100 mg 4-12 tablets by ity of tablet 00:00: mouth [place] 00 daily. Medical Branch buPROPion 0 Yes [id number] 150mg Take 1 U nivers XL 4-12 tablet by ity of (WELLBUTRIN 00:00: mouth [place] XL) 150 mg 00 daily. Medical 24 hr Branch tablet busPIRone 2021-0 Yes [id number] 30mg Take 1 Un matt 30 mg 4-12 tablet by ity of tablet 00:00: mouth 2 (two) Medical times Branch daily. SERTraline 0 Yes [id number] 200mg Take 2 Univers 100 mg 4-12 tablets by ity of tablet 00:00: mouth [place] 00 daily. Medical Branch buPROPion 0 Yes [id number] 150mg Take 1 U nivers XL 4-12 tablet by ity of (WELLBUTRIN 00:00: mouth [place] XL) 150 mg 00 daily. Medical 24 hr Branch tablet busPIRone 2021-0 Yes [id number] 30mg Take 1 Un matt 30 mg 4-12 tablet by ity of tablet 00:00: mouth 2 00 (two) Medical times Branch daily. SERTraline 2021-0 Yes [id number] 200mg Take 2 Univers 100 mg 4-12 tablets by ity of tablet 00:00: mouth [place] 00 daily. Medical Branch buPROPion 2021-0 Yes [id number] 150mg Take 1 U nivers XL 4-12 tablet by ity of (WELLBUTRIN 00:00: mouth [place] XL) 150 mg 00 daily. Medical 24 hr Branch tablet busPIRone 2021-0 Yes [id number] 30mg Take 1 Un matt 30 mg 4-12 tablet by ity of tablet 00:00: mouth 2 00 (two) Medical times Branch daily. SERTraline 2021-0 Yes [id number] 200mg Take 2 Univers 100 mg 4-12 tablets by ity of tablet 00:00: mouth [place] 00 daily. Medical Branch buPROPion 2021-0 Yes [id number] 150mg Take 1 U nivers XL 4-12 tablet by ity of (WELLBUTRIN 00:00: mouth [place] XL) 150 mg 00 daily. Medical 24 hr Branch tablet busPIRone 2021-0 Yes [id number] 30mg Take 1 Un matt 30 mg 4-12 tablet by ity of tablet 00:00: mouth 2 [place] 00 (two) Medical times Branch daily. SERTraline 2021-0 Yes [id number] 200mg Take 2 Univers 100 mg 4-12 tablets by ity of tablet 00:00: mouth [place] 00 daily. Medical Branch buPROPion 2021-0 Yes [id number] 150mg Take 1 U nivers XL 4-12 tablet by ity of (WELLBUTRIN 00:00: mouth [place] XL) 150 mg 00 daily. Medical 24 hr Branch tablet busPIRone 2021-0 Yes [id number] 30mg Take 1 Un matt 30 mg 4-12 tablet by ity of tablet 00:00: mouth 2 [place] (two) Medical times Branch daily. SERTraline 2021-0 Yes [id number] 200mg Take 2 Univers 100 mg 4-12 tablets by ity of tablet 00:00: mouth [place] 00 daily. Medical Branch buPROPion 2021-0 Yes [id number] 150mg Take 1 U nivers XL 4-12 tablet by ity of (WELLBUTRIN 00:00: mouth [place] XL) 150 mg 00 daily. Medical 24 hr Branch tablet busPIRone 2021-0 Yes [id number] 30mg Take 1 Un matt 30 mg 4-12 tablet by ity of tablet 00:00: mouth 2 [place] 00 (two) Medical times Branch daily. SERTraline 2021-0 Yes [id number] 200mg Take 2 Univers 100 mg 4-12 tablets by ity of tablet 00:00: mouth [place] 00 daily. Medical Branch buPROPion 2021-0 Yes [id number] 150mg Take 1 U nivers XL 4-12 tablet by ity of (WELLBUTRIN 00:00: mouth [place] XL) 150 mg 00 daily. Medical 24 hr Branch tablet busPIRone 2021-0 Yes [id number] 30mg Take 1 Un matt 30 mg 4-12 tablet by ity of tablet 00:00: mouth 2 [place] 00 (two) Medical times Branch daily. SERTraline 2021-0 Yes [id number] 200mg Take 2 Univers 100 mg 4-12 tablets by ity of tablet 00:00: mouth [place] 00 daily. Medical Branch buPROPion 2021-0 Yes [id number] 150mg Take 1 U nivers XL 4-12 tablet by ity of (WELLBUTRIN 00:00: mouth [place] XL) 150 mg 00 daily. Medical 24 hr Branch tablet busPIRone 2021-0 Yes [id number] 30mg Take 1 Un matt 30 mg 4-12 tablet by ity of tablet 00:00: mouth 2 [place] 00 (two) Medical times Branch daily. SERTraline 2021-0 Yes [id number] 200mg Take 2 Univers 100 mg 4-12 tablets by ity of tablet 00:00: mouth [place] 00 daily. Medical Branch buPROPion 2021-0 Yes [id number] 150mg Take 1 U nivers XL 4-12 tablet by ity of (WELLBUTRIN 00:00: mouth [place] XL) 150 mg 00 daily. Medical 24 hr Branch tablet busPIRone 2021-0 Yes [id number] 30mg Take 1 Un matt 30 mg 4-12 tablet by ity of tablet 00:00: mouth 2 00 (two) Medical times Branch daily. SERTraline 2021-0 Yes [id number] 200mg Take 2 Univers 100 mg 4-12 tablets by ity of tablet 00:00: mouth [place] 00 daily. Medical Branch buPROPion 2021-0 Yes [id number] 150mg Take 1 U nivers XL 4-12 tablet by ity of (WELLBUTRIN 00:00: mouth [place] XL) 150 mg 00 daily. Medical 24 hr Branch tablet busPIRone 2021-0 Yes [id number] 30mg Take 1 Un matt 30 mg 4-12 tablet by ity of tablet 00:00: mouth 2 [place] 00 (two) Medical times Branch daily. SERTraline 2021-0 Yes [id number] 200mg Take 2 Univers 100 mg 4-12 tablets by ity of tablet 00:00: mouth [place] 00 daily. Medical Branch buPROPion 2021-0 Yes [id number] 150mg Take 1 U nivers XL 4-12 tablet by ity of (WELLBUTRIN 00:00: mouth [place] XL) 150 mg 00 daily. Medical 24 hr Branch tablet busPIRone 2021-0 Yes [id number] 30mg Take 1 Un matt 30 mg 4-12 tablet by ity of tablet 00:00: mouth 2 [place] 00 (two) Medical times Branch daily. SERTraline 2021-0 Yes [id number] 200mg Take 2 [facility] 100 mg 4-12 tablets by ity of tablet 00:00: mouth [place] 00 daily. Medical Branch buPROPion 2021-0 Yes [id number] 150mg Take 1 U nivers XL 4-12 tablet by ity of (WELLBUTRIN 00:00: mouth [place] XL) 150 mg 00 daily. Medical 24 hr Branch tablet busPIRone 2021-0 Yes [id number] 30mg Take 1 Un matt 30 mg 4-12 tablet by ity of tablet 00:00: mouth 2 [place] 00 (two) Medical times Branch daily. SERTraline 0 Yes [id number] 200mg Take 2 Univers 100 mg 4-12 tablets by ity of tablet 00:00: mouth [place] 00 daily. Medical Branch buPROPion 2021-0 Yes [id number] 150mg Take 1 U nivers XL 4-12 tablet by ity of (WELLBUTRIN 00:00: mouth [place] XL) 150 mg 00 daily. Medical 24 hr Branch tablet busPIRone 2021-0 Yes [id number] 30mg Take 1 Un matt 30 mg 4-12 tablet by ity of tablet 00:00: mouth 2 [place] 00 (two) Medical times Branch daily. SERTraline 2021-0 Yes [id number] 200mg Take 2 Univers 100 mg 4-12 tablets by ity of tablet 00:00: mouth [place] 00 daily. Medical Branch buPROPion 2021-0 Yes [id number] 150mg Take 1 U nivers XL 4-12 tablet by ity of (WELLBUTRIN 00:00: mouth [place] XL) 150 mg 00 daily. Medical 24 hr Branch tablet busPIRone 2021-0 Yes [id number] 30mg Take 1 Un matt 30 mg 4-12 tablet by ity of tablet 00:00: mouth 2 [place] 00 (two) Medical times Branch daily. SERTraline 2021-0 Yes [id number] 200mg Take 2 Univers 100 mg 4-12 tablets by ity of tablet 00:00: mouth [place] 00 daily. Medical Branch raltegravir 2022-0 Yes [id number] 400mg Take 1 Univers (ISENTRESS) 3-28 tablet by ity of 400 mg 00:00: mouth 2 [place] tablet 00 (two) Medical times Branch daily. raltegravir 2-0 Yes [id number] 400mg Take 1 Univers (ISENTRESS) 3-28 tablet by ity of 400 mg 00:00: mouth 2 [place] tablet 00 (two) Medical times Branch daily. raltegravir 2-0 Yes [id number] 400mg Take 1 Univers (ISENTRESS) 3-28 tablet by ity of 400 mg 00:00: mouth 2 [place] tablet 00 (two) Medical times Branch daily. raltegravir 2021-0 Yes [id number] 400mg Take 1 Univers (ISENTRESS) 3-28 tablet by ity of 400 mg 00:00: mouth 2 [place] tablet 00 (two) Medical times Branch daily. raltegravir 2021-0 Yes [id number] 400mg Take 1 Univers (ISENTRESS) 3-28 tablet by ity of 400 mg 00:00: mouth 2 [place] tablet 00 (two) Medical times Branch daily. raltegravir 2021-0 Yes [id number] 400mg Take 1 Univers (ISENTRESS) 3-28 tablet by ity of 400 mg 00:00: mouth 2 [place] tablet 00 (two) Medical times Branch daily. raltegravir 2021-0 Yes [id number] 400mg Take 1 Univers (ISENTRESS) 3-28 tablet by ity of 400 mg 00:00: mouth 2 [place] tablet 00 (two) Medical times Branch daily. raltegravir 2-0 Yes [id number] 400mg Take 1 Univers (ISENTRESS) 3-28 tablet by ity of 400 mg 00:00: mouth 2 [place] tablet 00 (two) Medical times Branch daily. raltegravir 2-0 Yes [id number] 400mg Take 1 Univers (ISENTRESS) 3-28 tablet by ity of 400 mg 00:00: mouth 2 [place] tablet 00 (two) Medical times Branch daily. raltegravir 2-0 Yes [id number] 400mg Take 1 Univers (ISENTRESS) 3-28 tablet by ity of 400 mg 00:00: mouth 2 [place] tablet 00 (two) Medical times Branch daily. raltegravir 2-0 Yes [id number] 400mg Take 1 Univers (ISENTRESS) 3-28 tablet by ity of 400 mg 00:00: mouth 2 [place] tablet 00 (two) Medical times Branch daily. raltegravir 2021-0 Yes [id number] 400mg Take 1 Univers (ISENTRESS) 3-28 tablet by ity of 400 mg 00:00: mouth 2 [place] tablet 00 (two) Medical times Branch daily. raltegravir 2021-0 Yes [id number] 400mg Take 1 Univers (ISENTRESS) 3-28 tablet by ity of 400 mg 00:00: mouth 2 [place] tablet 00 (two) Medical times Branch daily. raltegravir 2021-0 Yes [id number] 400mg Take 1 Univers (ISENTRESS) 3-28 tablet by ity of 400 mg 00:00: mouth 2 [place] tablet 00 (two) Medical times Branch daily. raltegravir 2021-0 Yes [id number] 400mg Take 1 Univers (ISENTRESS) 3-28 tablet by ity of 400 mg 00:00: mouth 2 [place] tablet 00 (two) Medical times Branch daily. raltegravir 2021-0 Yes [id number] 400mg Take 1 Univers (ISENTRESS) 3-28 tablet by ity of 400 mg 00:00: mouth 2 [place] tablet 00 (two) Medical times Branch daily. raltegravir 2021-0 Yes [id number] 400mg Take 1 Univers (ISENTRESS) 3-28 tablet by ity of 400 mg 00:00: mouth 2 [place] tablet 00 (two) Medical times Branch daily. raltegravir 2021-0 Yes [id number] 400mg Take 1 Univers (ISENTRESS) 3-28 tablet by ity of 400 mg 00:00: mouth 2 [place] tablet 00 (two) Medical times Branch daily. LORazepam 1 2021-0 2021- No [id number] 1mg Take 1 Univers mg tablet 3-21 [...] times a tablet day. emtricitabi 202- No [id number] Take one [facility] ne-tenofovi -20 09-12 po daily ity of r alafen 00:00: 00:00 [place] (DESCOVY) 00 :00 Medical tablet Branch metoprolol Yes [id number] Take 1 [place] tartrate 7-26 tablet Health (Lopressor) 00:00: (100 mg 100 MG 00 total) by tablet mouth 2 (two) times a day AND 0.5 tablets (50 mg total) every night. metoprolol Yes [id number] Take 1 [place] tartrate 7-26 tablet Health [...] (affected area in groin) hydrALAZINE Yes 50mg Q.[id number] Take 50 mg [facility] (APRESOLINE 7-19 [id number] mouth [facility] [address] ) 50 MG [...] (affected area in groin) hydrALAZINE Yes 50mg Q.[id number] Take 50 mg [facility] (APRESOLINE 7-19 [id number] mouth [facility] ) 50 MG [...] (affected area in groin) hydrALAZINE Yes 50mg Q.[id number] Take 50 mg [facility] (APRESOLINE 7-19 [id number] [address] mouth [facility] ) 50 MG [...] area in groin) hydrALAZINE 0 Yes 50mg Q.[id number] Take 50 mg [facility] (APRESOLINE 7-19 [id number] [address] mouth [facility] ) 50 MG [...] area in groin) hydrALAZINE 0 Yes 50mg Q.[id number] Take 50 mg [facility] (APRESOLINE 7-19 [id number] [address] mouth [facility] [address] ) 50 MG [...] (affected area in groin) hydrALAZINE Yes 50mg Q.[id number] Take 50 mg [facility] (APRESOLINE 7-19 [id number] [address] mouth [facility] ) 50 MG [...] (affected area in groin) hydrALAZINE Yes 50mg Q.[id number] Take 50 mg [facility] (APRESOLINE 7-19 [id number] by mouth [facility] ) 50 MG [...] area in groin) hydrALAZINE 0 Yes 50mg Q.[id number] Take 50 mg [facility] (APRESOLINE 7-19 [id number] [facility] mouth [facility] ) 50 MG [...] (affected area in groin) hydrALAZINE Yes 50mg Q.[id number] Take 50 mg [facility] (APRESOLINE 7-[id number] mouth [facility] ) 50 MG [...] (affected area in groin) hydrALAZINE Yes 50mg Q.[id number] Take 50 mg [facility] (APRESOLINE 7-19 [id number] mouth [facility] ) 50 MG [...] area in groin) hydrALAZINE 0 Yes 50mg Q.[id number] Take 50 mg [facility] (APRESOLINE 7-[id number] mouth [facility] [address] ) 50 MG [...] (affected area in groin) hydrALAZINE Yes 50mg Q.[id number] Take 50 mg [facility] (APRESOLINE 7-19 [id number] [address] mouth [facility] ) 50 MG [...] (affected area in groin) hydrALAZINE Yes 50mg Q.[id number] Take 50 mg [facility] (APRESOLINE 7-19 [id number] mouth [facility] ) 50 MG [...] (affected area in groin) hydrALAZINE Yes 50mg Q.[id number] Take 50 mg [facility] (APRESOLINE 7-[id number] mouth [facility] [address] ) 50 MG [...] area in groin) hydrALAZINE 0 Yes 50mg Q.[id number] Take 50 mg [facility] (APRESOLINE 7-[id number] mouth [facility] [address] ) 50 MG [...] (affected area in groin) hydrALAZINE Yes 50mg Q.[id number] Take 50 mg [facility] (APRESOLINE 7-[id number] mouth [facility] [address] ) 50 MG [...] area in groin) hydrALAZINE 0 Yes 50mg Q.[id number] Take 50 mg [facility] (APRESOLINE 7-[id number] mouth [facility] [address] ) 50 MG [...] area in groin) hydrALAZINE 0 Yes 50mg Q.[id number] Take 50 mg [facility] (APRESOLINE 7-19 [id number] mouth [facility] ) 50 MG [...] (affected area in groin) hydrALAZINE Yes 50mg Q.[id number] Take 50 mg [facility] (APRESOLINE 7-[id number] mouth [facility] [address] ) 50 MG [...] area in groin) hydrALAZINE 0 Yes 50mg Q.[id number] Take 50 mg [facility] (APRESOLINE 7-19 [id number] mouth [facility] [address] ) 50 MG [...] area in groin) hydrALAZINE 2020-0 Yes 50mg Q.[id number] Take 50 mg [facility] (APRESOLINE 7-[id number] mouth [facility] [address] ) 50 MG [...] (affected area in groin) hydrALAZINE Yes 50mg Q.[id number] Take 50 mg [facility] (APRESOLINE 7-[id number] mouth [address] ) 50 MG [...] (affected area in groin) hydrALAZINE Yes 50mg Q.[id number] Take 50 mg [facility] (APRESOLINE 7-19 [id number] [address] mouth [facility] ) 50 MG [...] (affected area in groin) hydrALAZINE Yes 50mg Q.[id number] Take 50 mg [facility] (APRESOLINE 7-[id number] mouth [facility] [address] ) 50 MG [...] (affected area in groin) hydrALAZINE Yes 50mg Q.[id number] Take 50 mg [facility] (APRESOLINE 7-[id number] mouth [address] ) 50 MG [...] (affected area in groin) hydrALAZINE Yes 50mg Q.[id number] Take 50 mg [facility] (APRESOLINE 7-[id number] mouth [address] ) 50 MG [...] area in groin) hydrALAZINE 0 Yes 50mg Q.[id number] Take 50 mg [facility] (APRESOLINE 7-[id number] mouth [facility] [address] ) 50 MG [...] (affected area in groin) hydrALAZINE Yes 50mg Q.[id number] Take 50 mg [facility] (APRESOLINE 7-[id number] mouth [address] ) 50 MG [...] (affected area in groin) hydrALAZINE Yes 50mg Q.[id number] Take 50 mg [facility] (APRESOLINE 7-[id number] mouth [facility] [address] ) 50 MG [...] area in groin) hydrALAZINE 0 Yes 50mg Q.[id number] Take 50 mg [facility] (APRESOLINE 7-[id number] mouth [facility] [address] ) 50 MG [...] area in groin) hydrALAZINE 0 Yes 50mg Q.[id number] Take 50 mg [facility] (APRESOLINE 7-[id number] mouth [address] ) 50 MG [...] (affected area in groin) hydrALAZINE Yes 50mg Q.[id number] Take 50 mg [facility] (APRESOLINE 7-[id number] mouth [facility] [address] ) 50 MG [...] (affected area in groin) hydrALAZINE Yes 50mg Q.[id number] Take 50 mg [facility] (APRESOLINE 7-19 [id number] [address] mouth [facility] [address] ) 50 MG [...] 10:51: daily. [facility] 25 l nystatin-tr Yes [id number] Apply to [facility] iainolone 7-06 area(s) 3 ity of cream 00:00: (three) [place] 00 times Medical daily. Branch nystatin-tr 2020-0 Yes [id number] Apply to [facility] iagreen cross hospitalone 7-06 area(s) 3 ity of cream 00:00: (three) [place] 00 times Medical daily. Branch nystatin-tr 2020-0 Yes [id number] Apply to [facility] 7-06 area(s) 3 ity of cream 00:00: (three) [place] 00 times Medical daily. Branch nystatin-tr 2020-0 Yes [id number] Apply to [facility] iamcinolone 7-06 area(s) 3 ity of cream 00:00: (three) [place] 00 times Medical daily. Branch nystatin-tr 2021-0 Yes [id number] Apply to [facility] iamcinolone 7-06 area(s) 3 ity of cream 00:00: (three) [place] 00 times Medical daily. Branch nystatin-tr 2021-0 Yes [id number] Apply to [facility] iamcinolone 7-06 area(s) 3 ity of cream 00:00: (three) [place] 00 times Medical daily. Branch nystatin-tr 2021-0 Yes [id number] Apply to [facility] iamcinolone 7-06 area(s) 3 ity of cream 00:00: (three) [place] 00 times Medical daily. Branch nystatin-tr 2021-0 Yes [id number] Apply to [facility] iamcinolone 7-06 area(s) 3 ity of cream 00:00: (three) [place] 00 times Medical daily. Branch nystatin-tr 2021-0 Yes [id number] Apply to [facility] iamcinolone 7-06 area(s) 3 ity of cream 00:00: (three) [place] 00 times Medical daily. Branch nystatin-tr 2021-0 Yes [id number] Apply to [facility] iamcinolone 7-06 area(s) 3 ity of cream 00:00: (three) [place] 00 times Medical daily. Branch nystatin-tr 2021-0 Yes [id number] Apply to [facility] iamcinolone 7-06 area(s) 3 ity of cream 00:00: (three) [place] 00 times Medical daily. Branch nystatin-tr 2021-0 Yes [id number] Apply to [facility] iamcinolone 7-06 area(s) 3 ity of cream 00:00: (three) [place] 00 times Medical daily. Branch nystatin-tr 2021-0 Yes [id number] Apply to [facility] iamcinolone 7-06 area(s) 3 ity of cream 00:00: (three) [place] 00 times Medical daily. Branch nystatin-tr 2021-0 Yes [id number] Apply to [facility] iamcinolone 7-06 area(s) 3 ity of cream 00:00: (three) [place] 00 times Medical daily. Branch nystatin-tr 2021-0 Yes [id number] Apply to [facility] iamcinolone 7-06 area(s) 3 ity of cream 00:00: (three) [place] 00 times Medical daily. Branch nystatin-tr 2020-0 Yes [id number] Apply to [facility] iainolone 11-25 area(s) 3 ity of cream 00:00: (three) [place] 00 times Medical daily. Branch nystatin-tr 2020-0 Yes [id number] [facility] ity of cream 00:00: (three) [place] 00 times Medical daily. Branch nystatin-tr 2020-0 Yes [id number] [facility] ity of cream 00:00: (three) [place] 00 times Medical daily. Branch budesonide- 2020-0 2021- No 1{puff} QD Inhale 1 [facility] formoteroL 625 06-[address] (SYMBICORT) 14:37: 00:00 morning. H ospita 160-4.5 02 :00 l mcg/actuati on inhaler hydrALAZINE 0 Yes [id number] 50mg [id number] Take 1 [place] (Apresoline 6-11 [id number] tablet (50 Health ) 50 MG 00:00: 3D mg total) tablet 00 by mouth 3 (three) times a day. hydrALAZINE 0 Yes [id number] 50mg Q.[id number] Take 1 [place] (Apresoline 6-11 [id number] tablet (50 Health ) 50 MG 00:00: [...] 00:00 0.083% 00 :00 nebulizer solution lisinopril 2021-0 Yes [place] 40 MG 5-30 Health tablet [...] % 00:00: ointment 00 nystatin 2020- No [id number] Q.25D Take 5 mL [facility] (MYCOSTATIN 17 [...] 00 topically every 12 (twelve) hours. LORazepam 2021-0 Yes [place] (Ativan) 2 5-14 Health MG [...] ia 4-10 (Same as: l 14:00: Zoloft) [place] 00 Sertraline No Notes: Memor ia 4-10 (Same as: l 14:00: Zoloft) [place] 00 pantoprazol No Notes: Caesar lisa e 4-10 Tablet l 14:00: should not [place] 00 be chewed or crushed. (Same as: Protonix) Amiodarone No Notes: Memor ia 4-10 (Same as: l 14:00: Cordarone) [place] Amlodipine No Notes: Memor ia 4-10 (Same [...] ia 4-10 (Same as: l 14:00: Norvasc) [place] 00 emtricitabi No Notes: Caesar lisa ne 200 MG / 4-10 (Same as: l tenofovir 14:00: Descovy) Herm ariel alafenamide 00 Non-formul 25 MG Oral nancy Tablet [Descovy] Sertraline No Notes: Memor ia 4-10 (Same as: l 14:00: Zoloft) [place] 00 pantoprazol No Notes: Caesar lisa e 4-10 Tablet l 14:00: should not [place] 00 be chewed or crushed. (Same as: Protonix) Amiodarone No Notes: Memor ia 4-10 (Same as: l 14:00: Cordarone) Amlodipine No Notes: Memor ia 4-10 (Same as: l 14:00: Norvasc) [place] 00 emtricitabi No Notes: Caesar lisa ne [...] ia 4-10 (Same as: l 14:00: Zoloft) [place] 00 pantoprazol No Notes: Caesar lisa e 4-10 Tablet l 14:00: should not [place] 00 be chewed or crushed. (Same as: [...] 0.9% 4-10 (Same as: l 02:00: BD [place] Posiflush) Eliquis No Notes: Memoria 4-10 Same as: l 02:00: Eliquis [place] 00 Hydralazine No Notes: Caesar lisa Hydrochlori 4-10 (Same as: l de 50 MG 02:00: Apresoline Her mitchell Oral Tablet 00 ) May interfere w/enteral feedings Take With Food Sucralfate No Notes: May M emoria 4-10 interfere l 02:00: w/enteral [place] 00 feeds - Take 1 hr before [...] 0.9% 4-10 (Same as: l 02:00: BD [place] 00 Posiflush) Eliquis No Notes: Memoria 4-10 [...] 0.9% 4-10 (Same as: l 02:00: BD [place] 00 Posiflush) Eliquis No Notes: Memoria 4-10 Same as: l 02:00: Eliquis [place] 00 Hydralazine No Notes: Caesar lisa Hydrochlori 4-10 (Same as: l de 50 MG 02:00: Apresoline Her mitchell Oral Tablet 00 ) May interfere w/enteral feedings Take With Food Sucralfate No Notes: May M emoria 4-10 interfere l 02:00: w/enteral [place] 00 feeds - Take 1 hr before [...] M emoria 4-10 interfere l 02:00: w/enteral [place] 00 feeds - Take 1 hr before [...] not exceed l #3 00:12: 4gm/day of [place] 00 acetaminop hen. (Same as: Tylenol with Codeine # 3) acetaminoph No Notes: Do M emoria en-codeine 4-10 not exceed l #3 00:12: 4gm/day of [place] acetaminop hen. (Same as: Tylenol with Codeine # 3) acetaminoph No Notes: Do M emoria en-codeine 4-10 not exceed l #3 00:12: 4gm/day of [place] acetaminop hen. (Same as: Tylenol with Codeine # 3) acetaminoph No Notes: Do M emoria en-codeine 4-10 not exceed l #3 00:12: 4gm/day of [place] acetaminop hen. (Same as: Tylenol with Codeine # 3) acetaminoph No Notes: Do M emoria en-codeine 4-10 not exceed l #3 00:12: 4gm/day of [place] acetaminop hen. (Same as: Tylenol with Codeine # 3) acetaminoph No Notes: Do M emoria en-codeine 4-10 not exceed l #3 00:12: 4gm/day of [place] acetaminop hen. (Same as: Tylenol with Codeine [...] tartrate 4-09 tab, l 22:00: Route: PO, [place] 00 Drug form: TAB, BID, Dosing Weight [...] tartrate 4-09 tab, l 22:00: Route: PO, [place] Drug form: TAB, BID, Dosing Weight 97.273, [...] oria - tab, l 22:00: Route: PO, [place] Drug form: TAB, BID, Dosing Weight 97.273, [...] tartrate 4-09 tab, l 22:00: Route: PO, [place] Drug form: TAB, BID, Dosing Weight 97.273, [...] oria 4-09 tab, l 22:00: Route: PO, [place] 00 Drug form: TAB, BID, Dosing Weight [...] Stop date: 09/28/20 9:00:00 CDT, 0 Morphine 2021-0 No Notes: Memoria 4-09 (Same l 17:07: as:MORPhin [place] 00 e Sulfate) Morphine No Notes: Memoria 4-09 (Same l 17:07: as:MORPhin [place] 00 e Sulfate) Morphine No Notes: Memoria 4-09 (Same l 17:07: as:MORPhin [place] 00 e Sulfate) Morphine No Notes: Memoria 4-09 (Same l 17:07: as:MORPhin [place] 00 e Sulfate) Morphine No Notes: Memoria 4-09 (Same l 17:07: as:MORPhin [place] 00 e Sulfate) Morphine No Notes: Memoria 4-09 (Same l 17:07: as:MORPhin [place] 00 e Sulfate) Morphine No Notes: Memoria [...] ONCE, Stop date: 08/29/20 10:40:00 CDT protamine 2020- No Route: IV, Me moria (ANES) 08-29 [...] 30 tab, 0 coated Refill(s), tablet Pharmacy: [facility], 162.56, cm, 08/29/20 5:30:00 CDT, Height, 97.273, kg, 08/29/20 5:30:00 CDT, Weight pantoprazol 2020-0 Yes 40 mg = 1 M emoria e 40 mg 4-09 tab, PO, l oral 15:27: Daily, # [place] enteric 00 30 tab, 0 coated Refill(s), tablet Pharmacy: [facility], 162.56, cm, 08/29/20 5:30:00 CDT, Height, 97.273, kg, 08/29/20 5:30:00 CDT, Weight pantoprazol 2020-0 Yes 40 mg = 1 M emoria e 40 mg 4-09 tab, PO, l oral 15:27: Daily, # [place] enteric 00 30 tab, 0 coated Refill(s), tablet Pharmacy: [facility], 162.56, cm, 08/29/20 5:30:00 CDT, Height, 97.273, kg, 08/29/20 5:30:00 CDT, Weight pantoprazol 1-0 Yes 40 mg = 1 M emoria e 40 mg 4-09 tab, PO, l oral 15:27: Daily, # [place] enteric 00 30 tab, 0 coated Refill(s), tablet Pharmacy: [facility], 162.56, cm, 08/29/20 5:30:00 CDT, Height, 97.273, kg, 08/29/20 5:30:00 CDT, Weight pantoprazol 1-0 Yes 40 mg = 1 M emoria e 40 mg 4-09 tab, PO, l oral 15:27: Daily, # [place] enteric 00 30 tab, 0 coated Refill(s), tablet Pharmacy: [facility], 162.56, cm, 08/29/20 5:30:00 CDT, Height, 97.273, kg, 08/29/20 5:30:00 CDT, Weight pantoprazol 1-0 Yes 40 mg = 1 M emoria e 40 mg 4-09 tab, PO, l oral 15:27: Daily, # [place] enteric 00 30 tab, 0 coated Refill(s), tablet Pharmacy: [facility], 162.56, cm, 08/29/20 5:30:00 CDT, Height, 97.273, kg, 08/29/20 5:30:00 CDT, Weight pantoprazol 1-0 Yes 40 mg = 1 M emoria e 40 mg 4-09 tab, PO, l oral 15:27: Daily, # [place] enteric 00 30 tab, 0 coated Refill(s), tablet Pharmacy: [facility], 162.56, cm, 08/29/20 5:30:00 CDT, [...] Skylar nn 00 tab, 0 Refill(s), Pharmacy: [facility], 162.56, cm, 08/29/20 5:30:00 CDT, Height, 97.273, kg, 08/29/20 5:30:00 CDT, Weight pantoprazol 0 No 40 mg = 1 M emoria e 40 mg 4-09 tab, PO, l oral 15:26: Daily, # [place] enteric 00 30 tab, 0 coated Refill(s) tablet sucralfate 2020-0 Yes 1 gm = 1 Mem oria 1 g oral 4-09 tab, PO, l tablet 15:26: Q12H, # 28 [place] nn 00 tab, 0 Refill(s), Pharmacy: [facility], 162.56, cm, 08/29/20 5:30:00 CDT, [...] [place] nn 00 tab, 0 Refill(s), Pharmacy: [facility], 162.56, cm, 08/29/20 5:30:00 CDT, [...] [place] nn 00 tab, 0 Refill(s), Pharmacy: [facility], 162.56, cm, 08/29/20 5:30:00 CDT, Height, 97.273, kg, 08/29/20 5:30:00 CDT, Weight pantoprazol 2020-0 No 40 mg = 1 M emoria e 40 mg 4-09 tab, PO, l oral 15:26: Daily, # [place] enteric 00 30 tab, 0 coated Refill(s) tablet sucralfate 2020-0 Yes 1 gm = 1 Mem oria 1 g oral 4-09 tab, PO, l tablet 15:26: Q12H, # 28 [place] nn 00 tab, 0 Refill(s), Pharmacy: [place] [id number], 162.56, cm, 08/29/20 5:30:00 CDT, Height, 97.273, kg, 08/29/20 5:30:00 CDT, Weight pantoprazol 2020-0 No 40 mg = 1 M emoria e 40 mg 4-09 tab, PO, l oral 15:26: Daily, # [place] enteric 00 30 tab, 0 coated Refill(s) tablet sucralfate 2020-0 Yes 1 gm = 1 Mem oria 1 g oral 4-09 tab, PO, l tablet 15:26: Q12H, # 28 [place] nn 00 tab, 0 Refill(s), Pharmacy: [place] [id number], 162.56, cm, 08/29/20 5:30:00 CDT, Height, 97.273, kg, 08/29/20 5:30:00 CDT, Weight pantoprazol 2020-0 No 40 mg = 1 M emoria e 40 mg 4-09 tab, PO, l oral 15:26: Daily, # [place] enteric 00 30 tab, 0 coated Refill(s) tablet sucralfate 2020-0 Yes 1 gm = 1 Mem oria 1 g oral 4-09 tab, PO, l tablet 15:26: Q12H, # 28 [place] nn 00 tab, 0 Refill(s), Pharmacy: [facility], 162.56, cm, 08/29/20 5:30:00 CDT, Height, 97.273, kg, 08/29/20 5:30:00 CDT, Weight Saline No Notes: Memoria Flush 0.9% 4-09 (Same as: l 15:25: BD [place] 00 Posiflush) Lorazepam No Notes: Memori a 4-09 (Same as: l 15:25: Ativan) [place] Saline No Notes: Memoria Flush 0.9% 4-09 (Same as: l 15:25: BD [place] 00 Posiflush) Lorazepam No Notes: Memori a 4-09 (Same as: l 15:25: Ativan) [place] Saline No Notes: Memoria Flush 0.9% 4-09 (Same as: l 15:25: BD [place] 00 Posiflush) Saline No Notes: Memoria Flush 0.9% 4-09 (Same as: l 15:25: BD [place] 00 Posiflush) Lorazepam No Notes: Memori a 4-09 (Same as: l 15:25: Ativan) [place] 00 Lorazepam No Notes: Memori a 4-09 (Same as: l 15:25: Ativan) [place] 00 Saline No Notes: Memoria Flush 0.9% 4-09 (Same as: l 15:25: BD [place] 00 Posiflush) Lorazepam No Notes: Memori a 4-09 (Same as: l 15:25: Ativan) [place] 00 Saline No Notes: Memoria Flush 0.9% 4-09 (Same as: l 15:25: BD [place] 00 Posiflush) Lorazepam No Notes: Memori a 4-09 (Same as: l 15:25: Ativan) [place] 00 Saline No Notes: Memoria Flush 0.9% 4-09 (Same as: l 15:25: BD [place] 00 Posiflush) Lorazepam No Notes: Memori a 4-09 (Same as: l 15:25: Ativan) [place] 00 Isuprel HCl 0 No Route: IV, Memoria (ANES) 0.2 08-29 Drug form: l mg + 15:00: INJ, [place] Dosing Weight 97.3, kg, Start date: 08/29/20 10:00:00 CDT, Stop date: 08/29/20 11:00:00 CDT Isuprel HCl 2020-0 No Route: IV, Memoria (ANES) 0.2 08-29 Drug form: l mg + 15:00: INJ, [place] Dosing Weight 97.3, kg, Start date: 08/29/20 [...] 08-29 Drug form: l 14:29: INJ, ONCE, [place] 00 Stop date: 08/29/20 9:29:00 CDT propofol 2021-0 No Route: IV, Mem oria (ANES) 08-29 Drug form: l 14:29: INJ, ONCE, [place] 00 Stop date: 08/29/20 9:29:00 CDT propofol 2021-0 No Route: IV, Mem oria (ANES) 08-29 Drug form: l 14:29: INJ, ONCE, [place] 00 Stop date: 08/29/20 9:29:00 CDT propofol 2021-0 No Route: IV, Mem oria (ANES) 08-29 Drug form: l 14:29: INJ, ONCE, Stop date: 08/29/20 9:29:00 CDT heparin 202-0 No Route: IV, Caesar lisa (ANES) 08-29 Drug form: l 14:18: INJ, ONCE, [place] 00 Stop date: 08/29/20 9:18:00 CDT heparin 202-0 No Route: IV, Caesar lisa (ANES) 08-29 Drug form: l 14:18: INJ, ONCE, [place] 00 Stop date: 08/29/20 9:18:00 CDT heparin 2021-0 No Route: IV, Caesar lisa (ANES) 08-29 Drug form: l 14:18: INJ, ONCE, [place] 00 Stop date: 08/29/20 9:18:00 CDT heparin 2021-0 No Route: IV, Caesar lisa (ANES) 08-29 Drug form: l 14:18: INJ, ONCE, [place] 00 Stop date: 08/29/20 9:18:00 CDT heparin 2021-0 No Route: IV, Caesar lisa (ANES) 08-29 Drug form: l 14:18: INJ, ONCE, [place] 00 Stop date: 08/29/20 9:18:00 CDT heparin 2021-0 No Route: IV, Caesar lisa (ANES) 08-29 Drug form: l 14:18: INJ, ONCE, [place] 00 Stop date: 08/29/20 9:18:00 CDT heparin 2020-0 No Route: IV, Caesar lisa (ANES) 08-29 Drug form: l 14:18: INJ, ONCE, [place] 00 Stop date: 08/29/20 9:18:00 CDT Labetalol 0 No 10 mg, Memori a 08-29 Route: l 14:01: IVP, [place] 00 Q5Min, Dosing Weight 97.273, kg, PRN [...] oria ne 08-29 Route: l 14:01: IVP, [place] 00 Q5Min, Dosing Weight 97.273, kg, PRN [...] 08-29 Route: PO, l 14:01: Drug form: [place] 00 TAB, ONCE, Dosing Weight 97.273, kg, [...] oria ne 08-29 Route: l 14:01: IVP, [place] 00 Q5Min, Dosing Weight 97.273, kg, PRN Pain Score 7-10, Start date: 08/29/20 9:01:00 CDT, Duration: 4 doses or times, Stop date: Limited # of times Flumazenil 1-0 No 0.2 mg, Caesar lisa 08-29 Route: l 14:01: IVP, PRN, [place] 00 Dosing Weight 97.273, kg, PRN Benzodiaze pine Reversal, Initial dose, Start date: 08/29/20 9:01:00 CDT, Duration: 30 day, Stop date: 09/28/20 9:00:00 CDT Naloxone 2021-0 No 0.4 mg, Memori a 08-29 Route: l 14:01: IVP, [place] 00 Q2MIN, Dosing Weight 97.273, kg, PRN [...] Memori a 08-29 Route: l 14:01: IVP, [place] 00 Q5Min, Dosing Weight 97.273, kg, PRN [...] lisa 08-29 Route: l 14:01: IVP, PRN, [place] 00 Dosing Weight 97.273, kg, PRN Benzodiaze pine Reversal, Initial dose, Start date: 08/29/20 9:01:00 CDT, Duration: 30 day, Stop date: 09/28/20 9:00:00 CDT Naloxone 2020-0 No 0.4 mg, Memori a 08-29 Route: l 14:01: IVP, [place] 00 Q2MIN, Dosing Weight 97.273, kg, PRN Narcotic Reversal, Start date: 08/29/20 9:01:00 CDT, Duration: 8 doses or times, Stop date: Limited # of times Ondansetron 2020-0 No 4 mg, Memor ia 08-29 Route: l 14:01: IVP, ONCE, [place] 00 Dosing Weight 97.273, kg, PRN Nausea [...] oria ne 08-29 Route: l 14:01: IVP, [place] 00 Q5Min, Dosing Weight 97.273, kg, PRN Pain Score 7-10, Start date: 08/29/20 9:01:00 CDT, Duration: 4 doses or times, Stop date: Limited # of times Flumazenil 2021-0 No 0.2 mg, Caesar lisa 08-29 Route: l 14:01: IVP, PRN, [place] 00 Dosing Weight 97.273, kg, PRN Benzodiaze pine Reversal, Initial dose, Start date: 08/29/20 9:01:00 CDT, Duration: 30 day, Stop date: 09/28/20 9:00:00 CDT Naloxone 2021-0 No 0.4 mg, Memori a 08-29 Route: l 14:01: IVP, [place] 00 Q2MIN, Dosing Weight 97.273, kg, PRN [...] Memori a 08-29 Route: l 14:01: IVP, [place] 00 Q2MIN, Dosing Weight 97.273, kg, PRN Narcotic Reversal, Start date: 08/29/20 9:01:00 CDT, Duration: 8 doses or times, Stop date: Limited # of times Ondansetron 1-0 No 4 mg, Memor ia 08-29 Route: l 14:01: IVP, ONCE, [place] 00 Dosing Weight 97.273, kg, PRN Nausea [...] oria ne 08-29 Route: l 14:01: IVP, [place] 00 Q5Min, Dosing Weight 97.273, kg, PRN Pain Score 7-10, Start date: 08/29/20 9:01:00 CDT, Duration: 4 doses or times, Stop date: Limited # of times Flumazenil 2020-0 No 0.2 mg, Caesar lisa 08-29 Route: l 14:01: IVP, PRN, Maryt 00 Dosing Weight 97.273, kg, PRN Benzodiaze pine Reversal, Initial dose, Start date: 08/29/20 9:01:00 CDT, Duration: 30 day, Stop date: 09/28/20 9:00:00 CDT Naloxone 1-0 No 0.4 mg, Memori a 08-29 Route: l 14:01: IVP, [place] 00 Q2MIN, Dosing Weight 97.273, kg, PRN [...] 08-29 Route: PO, l 14:01: Drug form: [place] 00 TAB, ONCE, Dosing Weight 97.273, kg, [...] lisa 08-29 Route: l 14:01: IVP, PRN, [place] 00 Dosing Weight 97.273, kg, PRN Benzodiaze [...] Vomiting, Start date: 08/29/20 9:01:00 CDT lidocaine 2021-0 No Route: IV, Me [...] Drug form: l 10 13:15: INJ, Start [place] microgram date: 08/29/20 8:15:00 CDT, Stop date: [...] Drug form: l 10 13:15: INJ, Start [place] microgram 00 date: 08/29/20 8:15:00 CDT, Stop date: 08/29/20 9:15:00 CDT norepinephr 2020-0 No Route: IV, Memoria ine (ANES) 08-29 Drug form: l 10 13:15: INJ, Start [place] microgram 00 date: 08/29/20 8:15:00 CDT, Stop date: 08/29/20 9:15:00 CDT norepinephr 2020-0 No Route: IV, Memoria ine (ANES) - Drug form: l 10 13:15: INJ, Start [place] microgram 00 date: 08/29/20 8:15:00 CDT, Stop date: 08/29/20 9:15:00 CDT norepinephr 2020-0 No Route: IV, Memoria ine (ANES) 08-29 Drug form: l 10 13:15: INJ, Start [place] microgram 00 date: 08/29/20 8:15:00 CDT, Stop [...] 4-09 Total l 0.9% IV 12:30: Volume: [place] (ANES) 1000 00 1,000, mL Start date: 08/29/20 7:30:00 CDT, Stop date: 08/29/20 8:30:00 CDT Sodium 2021-0 No Route: IV, Memor ia Chloride 4-09 Total l 0.9% IV 12:30: Volume: [place] (ANES) 1000 00 1,000, mL Start date: 08/29/20 7:30:00 CDT, Stop date: 08/29/20 8:30:00 CDT Sodium 2021-0 No Route: IV, Memor ia Chloride 4-09 Total l 0.9% IV 12:30: Volume: [place] (ANES) 1000 00 1,000, mL Start date: 08/29/20 7:30:00 CDT, Stop date: 08/29/20 8:30:00 CDT Sodium 2021-0 No Route: IV, Memor ia Chloride 4-09 Total l 0.9% IV 12:30: Volume: [place] (ANES) 1000 00 1,000, mL Start date: [...] PO, l Hydrochlori 11:42: Q24H, # 30 [place] de 150 MG 00 tab, 0 Extended [...] PO, l Hydrochlori 11:42: Q24H, # 30 [place] de 150 MG 00 tab, 0 Extended [...] 4- Q12H, tab, l Tablet 11:41: 0 [place] [Eliquis] 00 Refill(s), For Atrial Fibrilatio n apixaban 5 2020-0 Yes 5 mg, PO, Me moria MG Oral 4- Q12H, tab, l Tablet 11:41: 0 [place] [Eliquis] 00 Refill(s), For Atrial Fibrilatio n apixaban 5 2020-0 Yes 5 mg, PO, Me moria MG Oral 4- Q12H, tab, l Tablet 11:41: 0 [place] [Eliquis] 00 Refill(s), For Atrial Fibrilatio n apixaban 5 2020-0 Yes 5 mg, PO, Me moria MG Oral 4-09 Q12H, tab, l Tablet 11:41: 0 [place] [Eliquis] 00 Refill(s), For Atrial Fibrilatio n apixaban 5 2020-0 Yes 5 mg, PO, Me moria MG Oral 4-09 Q12H, tab, l Tablet 11:41: 0 [place] [Eliquis] 00 Refill(s), For Atrial Fibrilatio n AMIODarone 2020-0 Yes 200 mg = 1 M emoria 200 mg oral 4-09 tab, PO, l tablet 11:38: Daily, # [place] 00 90 tab, 3 Refill(s) AMIODarone 2020-0 Yes 200 mg = 1 M emoria 200 mg oral 4-09 tab, PO, l tablet 11:38: Daily, # [place] 00 90 tab, 3 Refill(s) AMIODarone 1-0 Yes 200 mg = 1 M emoria [...] tab, PO, l tablet 11:38: Daily, # [place] 00 90 tab, 3 Refill(s) normal No [...] [place]cov[place] ne-Tenofovi 1-21 200 mg-25 [facility] r AF 00:00: mg tablet (Descovy) 00 200-25 MG tablet sertraline Yes 200mg Q.5D Take 200 [place] (Zoloft) 8-26 mg [facility] 100 MG 00:00: mouth 2 tablet 00 (two) times a day. sertraline Yes 200mg Q.5D Take 200 [place] (Zoloft) 8-26 mg [facility] 100 MG 00:00: mouth 2 tablet 00 (two) times a day. NYASIAOVY Yes 1{tbl} QD Take 1 Method i [...] Immunizations Ordered Filled Immunization Date Status Comments [facility] e Immunization Name Name SARS-COV-2 [...] [place] 65+ PFIZER COVID-19 2020-07-23 Completed [facility]ACC[facility] 00:00:00 [facility] PFIZER COVID-19 2020-07-23 Completed [facility] VACC[facility] 00:00:00 [facility] PFIZER COVID-19 2020-07-23 Completed [facility] VACC[facility] 00:00:00 [facility] PFIZER COVID-19 2020-07-23 Completed [facility] VACC[facility] 00:00:00 [facility] PFIZER COVID-19 2020-07-23 Completed [facility] VACC[facility] 00:00:00 [facility] PFIZER COVID-19 2020-07-23 Completed [facility] VACC[facility] 00:00:00 [facility] PFIZER COVID-19 2020-07-23 Completed [facility] VACC[facility] 00:00:00 [facility] PFIZER COVID-19 2020-07-23 Completed [facility] VACC[facility] 00:00:00 [facility] PFIZER COVID-19 2020-07-23 Completed [facility] VACC[facility] 00:00:00 [facility] PFIZER COVID-19 2020-07-23 Completed [facility] VACC[facility] 00:00:00 [facility] PFIZER COVID-19 2020-07-23 Completed [facility] VACC[facility] 00:00:00 [facility] PFIZER COVID-19 2020-07-23 Completed [facility] VACC[facility] 00:00:00 [facility] PFIZER COVID-19 2020-07-23 Completed [facility] VACC[facility] 00:00:00 [facility] PFIZER COVID-19 2020-07-23 Completed [facility] VACC[facility] 00:00:00 [facility] PFIZER COVID-19 2020-07-23 Completed [facility] VACCIN[facility] 00:00:00 [facility] PFIZER COVID-19 2020-07-23 Completed [facility] VACC[facility] 00:00:00 [facility] PFIZER COVID-19 2020-07-23 Completed [facility] VACC[facility] 00:00:00 [facility] PFIZER COVID-19 2020-07-23 Completed [facility] VACC[facility] 00:00:00 [facility] PFIZER COVID-19 2020-07-23 Completed [facility] VACC[facility] 00:00:00 [facility] PFIZER COVID-19 2020-07-23 Completed [facility] VACCIN[facility] 00:00:00 [facility] PFIZER COVID-19 2020-07-23 Completed [facility] VACC[facility] 00:00:00 [facility] PFIZER COVID-19 2020-07-23 Completed [facility] VACC[facility] 00:00:00 [facility] PFIZER COVID-19 2020-07-23 Completed [facility] VACCIN[facility] 00:00:00 [facility] PFIZER COVID-19 2020-07-23 Completed [facility] VACCIN[facility] 00:00:00 [facility] PFIZER COVID-19 2020-07-23 Completed [facility] VACC[facility] 00:00:00 [facility] PFIZER COVID-19 2020-07-23 Completed [facility] VACCIN[facility] 00:00:00 [facility] PFIZER COVID-19 2020-07-23 Completed [facility] VACC[facility] 00:00:00 [facility] PFIZER COVID-19 2020-07-23 Completed [facility] VACC[facility] 00:00:00 [facility] PFIZER COVID-19 2020-07-23 Completed [facility] VACC[facility] 00:00:00 [facility] PFIZER COVID-19 2020-07-23 Completed [facility] VACC[facility] 00:00:00 [facility] PFIZER COVID-19 2020-07-23 Completed [facility] 00:00:00 [facility] PFIZER COVID-19 2020-07-23 Completed [facility]:00:00 [facility] SARS-COV-2 COVID-19 2020-07-23 Completed [facility] 00[facility]00:00 [facility] SARS-COV-2 COVID-19 2020-07-23 Completed [facility] VACCINE 00:00:00 [facility] SARS-COV-2 COVID-19 2020-07-23 Completed [facility] VACCINE 00:00:00 [facility] SARS-COV-2 COVID-19 2020-07-23 Completed [facility] VACCINE 00:00:00 [facility] SARS-COV-2 COVID-19 2020-07-23 Completed [facility] VACCINE 00:00:00 [facility] SARS-COV-2 COVID-19 2020-07-23 Completed [facility] VACCINE 00:00:00 [facility] SARS-COV-2 COVID-19 2020-07-23 Completed [facility] VACCINE 00:00:00 [facility] SARS-COV-2 COVID-19 2020-07-23 Completed [facility] VACCINE 00:00:00 [facility] SARS-COV-2 COVID-19 2020-07-23 Completed [facility] VACCINE 00:00:00 [facility] SARS-COV-2 COVID-19 2020-07-23 Completed [facility] VACCINE 00:00:00 [facility] SARS-COV-2 COVID-19 2020-07-23 Completed [facility] VACCINE 00:00:00 [facility] SARS-COV-2 COVID-19 2020-07-23 Completed [facility] VACCINE 00:00:00 [facility] SARS-COV-2 COVID-19 2020-07-23 Completed [facility] VACCINE 00:00:00 [facility] SARS-COV-2 COVID-19 2020-07-23 Completed [facility] VACCINE 00:00:00 [facility] PFIZER COVID-19 2020-07-23 Completed [facility]00:00 [facility] PFIZER COVID-19 2020-07-02 Completed [facility] 00:00:00 [facility] PFIZER COVID-19 2020-07-02 Completed [facility] 00:00:00 [facility] PFIZER COVID-19 2020-07-02 Completed [facility] 00:00:00 [facility] PFIZER COVID-19 2020-07-02 Completed [facility] 00:00:00 [facility] PFIZER COVID-19 2020-07-02 Completed [facility] 00:00:00 [facility] PFIZER COVID-19 2020-07-02 Com[facility]00 [facility] PFIZ[facility] COVID-19 2020-07-02 Completed [facility] 00:00:00 [facility] PFIZER COVID-19 2020-07-02 Completed [facility] 00:00:00 [facility] PFIZER COVID-19 2020-07-02 Com[facility]00 [facility] PFIZ[facility] COVID-19 2020-07-02 Completed [facility] 00:00:00 [facility] PFIZER COVID-19 2020-07-02 Completed [facility]:00:00 [facility] PFIZER COVID-19 2020-07-02 Completed [facility] 00:00:00 [facility] PFIZER COVID-19 2020-07-02 Completed [facility] 00:00:00 [facility] PFIZER COVID-19 2020-07-02 Completed [facility] 00:00:00 [facility] PFIZER COVID-19 2020-07-02 Completed [facility] 00:00:00 [facility] PFIZER COVID-19 2020-07-02 Completed [facility] 00:00:00 [facility] PFIZER COVID-19 2020-07-02 Completed [facility] 00:00:00 [facility] PFIZER COVID-19 2020-07-02 Completed [facility] 00:00:00 [facility] PFIZER COVID-19 2020-07-02 Completed [facility] 00:00:00 [facility] PFIZER COVID-19 2020-07-02 Completed [facility] 00:00:00 [facility] PFIZER COVID-19 2020-07-02 Completed [facility] 00:00:00 [facility] PFIZER COVID-19 2020-07-02 Completed [facility] 00:00:00 [facility] PFIZER COVID-19 2020-07-02 Completed [facility] 00:00:00 [facility] PFIZER COVID-19 2020-07-02 Completed [facility] 00:00:00 [facility] PFIZER COVID-19 2020-07-02 Completed [facility] 00:00:00 [facility] PFIZER COVID-19 2020-07-02 Completed [facility] 00:00:00 [facility] PFIZER COVID-19 2020-07-02 Completed [facility] 00:00:00 [facility] PFIZER COVID-19 2020-07-02 Completed [facility] 00:00:00 [facility] PFIZER COVID-19 2020-07-02 Completed [facility] 00:00:00 [facility] PFIZER COVID-19 2020-07-02 Completed [facility] 00:00:00 [facility] PFIZER COVID-19 2020-07-02 Completed [facility]ACC[facility] 00:00:00 [facility] PFIZER COVID-19 2020-07-02 Completed [facility] 00:00:00 [facility] SARS-COV-2 COVID-19 2020-07-02 Completed [facility] PFIZER VACCINE 00:00:00 [facility] SARS-COV-2 COVID-19 2020-07-02 Completed [facility] of PFIZER VACCINE 00:00:00 [facility] SARS-COV-2 COVID-19 2020-07-02 Completed [facility] PFIZER VACCINE 00:00:00 [facility] SARS-COV-2 COVID-19 2020-07-02 Completed [facility] of PFIZER VACCINE 00:00:00 [facility] SARS-COV-2 COVID-19 2020-07-02 Completed [facility] PFIZER VACCINE 00:00:00 [facility] SARS-COV-2 COVID-19 2020-07-02 Completed [facility] of PFIZER VACCINE 00:00:00 [facility] SARS-COV-2 COVID-19 2020-07-02 Completed [facility] of PFIZER VACCINE 00:00:00 [facility] SARS-COV-2 COVID-19 2020-07-02 Completed [facility] PFIZER VACCINE 00:00:00 [facility] SARS-COV-2 COVID-19 2020-07-02 Completed [facility] PFIZER VACCINE 00:00:00 [facility] SARS-COV-2 COVID-19 2020-07-02 Completed [facility] PFIZER VACCINE 00:00:00 [facility] SARS-COV-2 COVID-19 2020-07-02 Completed [facility] of PFIZER VACCINE 00:00:00 [facility] SARS-COV-2 COVID-19 2020-07-02 Completed [facility] of PFIZER VACCINE 00:00:00 [facility] SARS-COV-2 COVID-19 2020-07-02 Completed [facility] of PFIZER VACCINE 00:00:00 [facility] SARS-COV-2 COVID-19 2020-07-02 Completed [facility] of PFIZER VACCINE 00:00:00 [facility] PFIZER COVID-19 2020-07-02 Completed [facility] 00:00:00 [facility] Influenza Virus 2017-03-08 Completed [facility] Vaccine 00:00:00 [facility] Influenza Virus 2017-03-08 Completed [facility] Vaccine 00:00:00 [facility] Influenza Virus 2017-03-08 Completed [facility] Vaccine 00:00:00 [facility] Influenza Virus 2017-03-08 Completed [facility] Vaccine 00:00:00 [facility] Influenza Virus 2017-03-08 Completed [facility] Vaccine 00:00:00 [facility] Influenza Virus 2017-03-08 Completed [facility] Vaccine 00:00:00 [facility] Influenza Virus 2017-03-08 Completed [facility] Vaccine 00:00:00 [facility] Influenza Virus 2017-03-08 Completed [facility] Vaccine 00:00:00 [facility] Influenza Virus 2017-03-08 Completed [facility] Vaccine 00:00:00 [facility] Influenza Virus 2017-03-08 Completed [facility] Vaccine 00:00:00 [facility] Influenza Virus 2017-03-08 Completed [facility] Vaccine 00:00:00 [facility] Influenza Virus 2017-03-08 Completed [facility] Vaccine 00:00:00 [facility] Influenza Virus 2017-03-08 Completed [facility] Vaccine 00:00:00 [facility] Influenza Virus 2017-03-08 Completed [facility] Vaccine 00:00:00 [facility] Influenza Virus 2017-03-08 Completed [facility] Vaccine 00:00:00 [facility] Influenza Virus 2017-03-08 Completed [facility] Vaccine 00:00:00 [facility] Influenza Virus 2017-03-08 Completed [facility] Vaccine 00:00:00 [facility] Influenza Virus 2017-03-08 Completed [facility] Vaccine 00:00:00 [facility] Influenza Virus 2014-01-30 Completed [facility] of Vaccine (3+ yrs) 00:00:00 [facility] Pneumococcal 13 2014-01-30 Completed [facility] of Conjugate, PCV13 00:00:00 [facility] dical (Prevnar 13) Branch Influenza Virus 2014-01-30 Completed [facility] of Vaccine (3+ yrs) 00:00:00 [facility] Pneumococcal 13 2014-01-30 Completed [facility] of Conjugate, PCV13 00:00:00 [facility] dical (Prevnar 13) Branch Influenza Virus 2014-01-30 Completed [facility] of Vaccine (3+ yrs) 00:00:00 [facility] Pneumococcal 13 2014-01-30 Completed [facility] Conjugate, PCV13 00:00:00 [facility] (Pre[facility] 13) [facility] Influenza Virus 2014-01-30 Completed [facility] Vaccine (3+ yrs) 00:00:00 [place] [facility] Pneumococcal 13 2014-01-30 Completed [facility] Conjugate, PCV13 00:00:00 [place] [facility] (Prevnar 13) [facility] Influenza Virus 2014-01-30 Completed [facility] Vaccine (3+ yrs) 00:00:00 [place] [facility] Pneumococcal 13 2014-01-30 Completed [facility] Conjugate, PCV13 00:00:00 [place] [facility] (Prevnar 13) [facility] Influenza Virus 2014-01-30 Completed [facility] Vaccine (3+ yrs) 00:00:00 [place] [facility] Pneumococcal 13 2014-01-30 Completed [facility] Conjugate, PCV13 00:00:00 [place] [facility] (Prevnar 13) [facility] Influenza Virus 2014-01-30 Completed [facility] Vaccine (3+ yrs) 00:00:00 [place] [facility] Pneumococcal 13 2014-01-30 Completed [facility] Conjugate, PCV13 00:00:00 [place] [facility] (Prevnar 13) [facility] Influenza Virus 2014-01-30 Completed [facility] Vaccine (3+ yrs) 00:00:00 [facility] Pneumococcal 13 2014-01-30 Completed [facility] Conjugate, PCV13 00:00:00 [place] [facility] (Prevnar 13) Branch Influenza Virus 2014-01-30 Completed [facility] Vaccine (3+ yrs) 00:00:00 [place] [facility] Pneumococcal 13 2014-01-30 Completed [facility] Conjugate, PCV13 00:00:00 [place] [facility] (Prevnar 13) [facility] Influenza Virus 2014-01-30 Completed [facility] Vaccine (3+ yrs) 00:00:00 [facility] Branch Pneumococcal 13 2014-01-30 Completed [facility] Conjugate, PCV13 00:00:00 [place] [facility] (Prevnar 13) Branch Influenza Virus 2014-01-30 Completed [facility] Vaccine (3+ yrs) 00:00:00 [place] [facility] Pneumococcal 13 2014-01-30 Completed [facility] Conjugate, PCV13 00:00:00 [place] [facility] (Prevnar 13) [facility] Influenza Virus 2014-01-30 Completed [facility] Vaccine (3+ yrs) 00:00:00 [facility] Branch Pneumococcal 13 2014-01-30 Completed [facility] of Conjugate, PCV13 00:00:00 [facility] dical (Prevnar 13) Branch Influenza Virus 2014-01-30 Completed [facility] of Vaccine (3+ yrs) 00:00:00 [facility] Branch Pneumococcal 13 2014-01-30 Completed [facility] of Conjugate, PCV13 00:00:00 [facility] dical (Prevnar 13) Branch Influenza Virus 2014-01-30 Completed [facility] of Vaccine (3+ yrs) 00:00:00 [facility] Branch Pneumococcal 13 2014-01-30 Completed [facility] of Conjugate, PCV13 00:00:00 [facility] dical (Prevnar 13) Branch Influenza Virus 2014-01-30 Completed [facility] of Vaccine (3+ yrs) 00:00:00 [facility] Branch Pneumococcal 13 2014-01-30 Completed [facility] of Conjugate, PCV13 00:00:00 [facility] dical (Prevnar 13) Branch Influenza Virus 2014-01-30 Completed [facility] of Vaccine (3+ yrs) 00:00:00 [facility] Branch Pneumococcal 13 2014-01-30 Completed [facility] of Conjugate, PCV13 00:00:00 [facility] dical (Prevnar 13) Branch Influenza Virus 2014-01-30 Completed [facility] of Vaccine (3+ yrs) 00:00:00 [facility] Branch Pneumococcal 13 2014-01-30 Completed [facility] of Conjugate, PCV13 00:00:00 [facility] dical (Prevnar 13) Branch Influenza Virus 2014-01-30 Completed [facility] of Vaccine (3+ yrs) 00:00:00 [facility] Pneumococcal 13 2014-01-30 Completed [facility] of Conjugate, PCV13 00:00:00 [facility] dical (Prevnar 13) Branch Pneumococcal 2012-02-16 Completed University o f Polysaccharide, 00:00:00 [facility] ical PPSV23 (PNEUMOVAX) Branch Influenza Virus 2012-02-16 Completed [facility] of Vaccine 00:00:00 [facility] PPD (TB) 2012-02-16 Completed [facility] of 00:00:00 [facility] Pneumococcal 2012-02-16 Completed [facility] o f Polysaccharide, 00:00:00 [place] [facility] PPSV23 (PNEUMOVAX) Branch Influenza Virus 2012-02-16 Completed [facility] of Vaccine 00:00:00 [facility] PPD (TB) 2012-02-16 Completed [facility] of 00:00:00 [facility] Pneumococcal 2012-02-16 Completed [facility] o f Polysaccharide, 00:00:00 [place] [facility] PPSV23 (PNEUMOVAX) Branch Influenza Virus 2012-02-16 Completed [facility] Vaccine 00:00:00 [facility] PPD (TB) 2012-02-16 Completed [facility] of 00:00:00 [facility] Pneumococcal 2012-02-16 Completed [facility] o f Polysaccharide, 00:00:00 [place] [facility] PPSV23 (PNEUMOVAX) Branch Influenza Virus 2012-02-16 Completed [facility] of Vaccine 00:00:00 [facility] PPD (TB) 2012-02-16 Completed [facility] of 00:00:00 [facility] Pneumococcal 2012-02-16 Completed [facility] o f Polysaccharide, 00:00:00 [place] [facility] PPSV23 (PNEUMOVAX) Branch Influenza Virus 2012-02-16 Completed [facility] of Vaccine 00:00:00 [facility] PPD (TB) 2012-02-16 Completed [facility] of 00:00:00 [facility] Pneumococcal 2012-02-16 Completed [facility] o f Polysaccharide, 00:00:00 [place] [facility] PPSV23 (PNEUMOVAX) Branch Influenza Virus 2012-02-16 Completed [facility] Vaccine 00:00:00 [facility] PPD (TB) 2012-02-16 Completed [facility] of 00:00:00 [facility] Pneumococcal 2012-02-16 Completed [facility] o f Polysaccharide, 00:00:00 [place] [facility] PPSV23 (PNEUMOVAX) Branch Influenza Virus 2012-02-16 Completed [facility] of Vaccine 00:00:00 [facility] PPD (TB) 2012-02-16 Completed [facility] of 00:00:00 [facility] Pneumococcal 2012-02-16 Completed [facility] o f Polysaccharide, 00:00:00 [place] [facility] PPSV23 (PNEUMOVAX) Branch Influenza Virus 2012-02-16 Completed [facility] Vaccine 00:00:00 [facility] PPD (TB) 2012-02-16 Completed [facility] of 00:00:00 [facility] Pneumococcal 2012-02-16 Completed [facility] o f Polysaccharide, 00:00:00 [place] [facility] PPSV23 (PNEUMOVAX) Branch Influenza Virus 2012-02-16 Completed [facility] Vaccine 00:00:00 [facility] PPD (TB) 2012-02-16 Completed [facility] of 00:00:00 [facility] Pneumococcal 2012-02-16 Completed [facility] o f Polysaccharide, 00:00:00 [place] [facility] PPSV23 (PNEUMOVAX) Branch Influenza Virus 2012-02-16 Completed [facility] of Vaccine 00:00:00 [facility] PPD (TB) 2012-02-16 Completed [facility] of 00:00:00 [facility] Pneumococcal 2012-02-16 Completed [facility] o f Polysaccharide, 00:00:00 [place] [facility] PPSV23 (PNEUMOVAX) Branch Influenza Virus 2012-02-16 Completed [facility] Vaccine 00:00:00 [facility] PPD (TB) 2012-02-16 Completed [facility] of 00:00:00 [facility] Pneumococcal 2012-02-16 Completed [facility] o f Polysaccharide, 00:00:00 [place] [facility] PPSV23 (PNEUMOVAX) Branch Influenza Virus 2012-02-16 Completed [facility] Vaccine 00:00:00 [facility] PPD (TB) 2012-02-16 Completed [facility] of 00:00:00 [facility] Pneumococcal 2012-02-16 Completed [facility] o f Polysaccharide, 00:00:00 [place] [facility] PPSV23 (PNEUMOVAX) Branch Influenza Virus 2012-02-16 Completed [facility] of Vaccine 00:00:00 [facility] PPD (TB) 2012-02-16 Completed [facility] of 00:00:00 [facility] Pneumococcal 2012-02-16 Completed [facility] o f Polysaccharide, 00:00:00 [place] [facility] PPSV23 (PNEUMOVAX) Branch Influenza Virus 2012-02-16 Completed [facility] of Vaccine 00:00:00 [facility] PPD (TB) 2012-02-16 Completed [facility] of 00:00:00 [facility] Pneumococcal 2012-02-16 Completed [facility] o f Polysaccharide, 00:00:00 [place] [facility] PPSV23 (PNEUMOVAX) Branch Influenza Virus 2012-02-16 Completed [facility] of Vaccine 00:00:00 [facility] PPD (TB) 2012-02-16 Completed [facility] of 00:00:00 [facility] Pneumococcal 2012-02-16 Completed [facility] o f Polysaccharide, 00:00:00 [place] [facility] PPSV23 (PNEUMOVAX) Branch Influenza Virus 2012-02-16 Completed [facility] of Vaccine 00:00:00 [facility] PPD (TB) 2012-02-16 Completed [facility] of 00:00:00 [facility] Pneumococcal 2012-02-16 Completed [facility] o f Polysaccharide, 00:00:00 [place] [facility] PPSV23 (PNEUMOVAX) Branch Influenza Virus 2012-02-16 Completed [facility] of Vaccine 00:00:00 [facility] PPD (TB) 2012-02-16 Completed [facility] of 00:00:00 [facility] Pneumococcal 2012-02-16 Completed [facility] o f Polysaccharide, 00:00:00 [place] [facility] PPSV23 (PNEUMOVAX) Branch Influenza Virus 2012-02-16 Completed [facility] of Vaccine 00:00:00 [facility] PPD (TB) 2012-02-16 Completed [facility] of 00:00:00 [facility] Hep B, Adol or Pedi 2011-09-01 Completed Unive rsity of Dosage 00:00:00 [facility] Hep B, Adol or Pedi 2011-09-01 Completed [facility] of Dosage 00:00:00 [facility] Hep B, Adol or Pedi 2011-09-01 Completed [facility] of Dosage 00:00:00 [facility] Hep B, Adol or Pedi 2011-09-01 Completed [facility] Dosage 00:00:00 [facility] Hep B, Adol or Pedi 2011-09-01 Completed [facility] of Dosage 00:00:00 [facility] Hep B, Adol or Pedi 2011-09-01 Completed [facility] of Dosage 00:00:00 [facility] Hep B, Adol or Pedi 2011-09-01 [...] 2011-03-17 Completed [facility] of Dosage 00:00:00 [facility] Hep B, Adol or Pedi 2011-03-17 Completed [facility] of Dosage 00:00:00 [facility] Hep B, Adol or Pedi 2011-03-17 Completed [facility] of Dosage 00:00:00 [facility] Hep B, Adol or Pedi 2011-03-17 Completed [facility] of Dosage 00:00:00 [facility] Hep B, Adol or Pedi 2011-03-17 Completed [facility] of Dosage 00:00:00 [facility] Hep B, Adol or Pedi 2011-03-17 Completed [facility] of Dosage 00:00:00 [facility] Influenza Virus 2011-02-10 Completed [facility] of Vaccine 00:00:00 [facility] Hep B, Adol or Pedi 2011-02-10 Completed [facility] of Dosage 00:00:00 [facility] Influenza Virus 2011-02-10 Completed [facility] Vaccine 00:00:00 [facility] Hep B, Adol or Pedi 2011-02-10 Completed [facility] of Dosage 00:00:00 [facility] Influenza Virus 2011-02-10 Completed [facility] Vaccine 00:00:00 [facility] Hep B, Adol or Pedi 2011-02-10 Completed [facility] of Dosage 00:00:00 [facility] Influenza Virus 2011-02-10 Completed [facility] of Vaccine 00:00:00 [facility] Hep B, Adol or Pedi 2011-02-10 Completed [facility] of Dosage 00:00:00 [facility] Influenza Virus 2011-02-10 Completed [facility] Vaccine 00:00:00 [facility] Hep B, Adol or Pedi 2011-02-10 Completed [facility] of Dosage 00:00:00 [facility] Influenza Virus 2011-02-10 Completed [facility] Vaccine 00:00:00 [facility] Hep B, Adol or Pedi 2011-02-10 Completed [facility] of Dosage 00:00:00 [facility] Influenza Virus 2011-02-10 Completed [facility] Vaccine 00:00:00 [facility] Hep B, Adol or Pedi 2011-02-10 Completed [facility] of Dosage 00:00:00 [facility] Influenza Virus 2011-02-10 Completed [facility] Vaccine 00:00:00 [facility] Hep B, Adol or Pedi 2011-02-10 Completed [facility] of Dosage 00:00:00 [facility] Influenza Virus 2011-02-10 Completed [facility] Vaccine 00:00:00 [facility] Hep B, Adol or Pedi 2011-02-10 Completed [facility] of Dosage 00:00:00 [facility] Influenza Virus 2011-02-10 Completed [facility] Vaccine 00:00:00 [facility] Hep B, Adol or Pedi 2011-02-10 Completed [facility] of Dosage 00:00:00 [facility] Influenza Virus 2011-02-10 Completed [facility] Vaccine 00:00:00 [facility] Hep B, Adol or Pedi 2011-02-10 Completed [facility] of Dosage 00:00:00 [facility] Influenza Virus 2011-02-10 Completed [facility] Vaccine 00:00:00 [facility] Hep B, Adol or Pedi 2011-02-10 Completed [facility] of Dosage 00:00:00 [facility] Influenza Virus 2011-02-10 Completed [facility] Vaccine 00:00:00 [facility] Hep B, Adol or Pedi 2011-02-10 Completed [facility] of Dosage 00:00:00 [facility] Influenza Virus 2011-02-10 Completed [facility] Vaccine 00:00:00 [facility] Hep B, Adol or Pedi 2011-02-10 Completed [facility] of Dosage 00:00:00 [facility] Influenza Virus 2011-02-10 Completed [facility] Vaccine 00:00:00 [facility] Hep B, Adol or Pedi 2011-02-10 Completed [facility] of Dosage 00:00:00 [facility] Influenza Virus 2011-02-10 Completed [facility] Vaccine 00:00:00 [facility] Hep B, Adol or Pedi 2011-02-10 Completed [facility] of Dosage 00:00:00 [facility] Influenza Virus 2011-02-10 Completed [facility] Vaccine 00:00:00 [facility] Hep B, Adol or Pedi 2011-02-10 Completed [facility] of Dosage 00:00:00 [facility] Influenza Virus 2011-02-10 Completed [facility] Vaccine 00:00:00 [facility] Hep B, Adol or Pedi 2011-02-10 Completed [facility] of Dosage 00:00:00 [facility] PPD (TB) 2010-11-18 Completed [facility] of 00:00:00 [facility] TDAP (ADACEL) 2010-11-18 Completed [facility] of VACCINE 00:00:00 [facility] PPD (TB) 2010-11-18 Completed [facility] of 00:00:00 [facility] TDAP (ADACEL) 2010-11-18 Completed [facility] of VACCINE 00:00:00 [facility] PPD (TB) 2010-11-18 Completed [facility] of 00:00:00 [facility] TDAP (ADACEL) 2010-11-18 Completed [facility] of VACCINE 00:00:00 [facility] PPD (TB) 2010-11-18 Completed [facility] of 00:00:00 [facility] TDAP (ADACEL) 2010-11-18 Completed [facility] of VACCINE 00:00:00 [facility] PPD (TB) 2010-11-18 Completed [facility] of 00:00:00 [facility] TDAP (ADACEL) 2010-11-18 Completed [facility] of VACCINE 00:00:00 [facility] PPD (TB) 2010-11-18 Completed [facility] of 00:00:00 [facility] TDAP (ADACEL) 2010-11-18 Completed [facility] of VACCINE 00:00:00 [facility] PPD (TB) 2010-11-18 Completed [facility] of 00:00:00 [facility] TDAP (ADACEL) 2010-11-18 Completed [facility] of VACCINE 00:00:00 [facility] PPD (TB) 2010-11-18 Completed [facility] of 00:00:00 [facility] TDAP (ADACEL) 2010-11-18 Completed [facility] of VACCINE 00:00:00 [facility] PPD (TB) 2010-11-18 Completed [facility] of 00:00:00 [facility] TDAP (ADACEL) 2010-11-18 Completed [facility] of VACCINE 00:00:00 [facility] PPD (TB) 2010-11-18 Completed [facility] of 00:00:00 [facility] TDAP (ADACEL) 2010-11-18 Completed [facility] of VACCINE 00:00:00 [facility] PPD (TB) 2010-11-18 Completed [facility] of 00:00:00 [facility] TDAP (ADACEL) 2010-11-18 Completed [facility] of VACCINE 00:00:00 [facility] PPD (TB) 2010-11-18 Completed [facility] 00:00:00 [facility] TDAP (ADACEL) 2010-11-18 Completed [facility] of VACCINE 00:00:00 [facility] PPD (TB) 2010-11-18 Completed [facility] of 00:00:00 [facility] TDAP (ADACEL) 2010-11-18 Completed [facility] of VACCINE 00:00:00 [facility] PPD (TB) 2010-11-18 Completed [facility] of 00:00:00 [facility] TDAP (ADACEL) 2010-11-18 Completed [facility] of VACCINE 00:00:00 [facility] PPD (TB) 2010-11-18 Completed [facility] of 00:00:00 [facility] TDAP (ADACEL) 2010-11-18 Completed [facility] of VACCINE 00:00:00 [facility] PPD (TB) 2010-11-18 Completed [facility] of 00:00:00 [facility] TDAP (ADACEL) 2010-11-18 Completed [facility] of VACCINE 00:00:00 [facility] PPD (TB) 2010-11-18 Completed [facility] of 00:00:00 [facility] TDAP (ADACEL) 2010-11-18 Completed [facility] of VACCINE 00:00:00 [facility] PPD (TB) 2010-11-18 Completed [facility] of 00:00:00 [facility] TDAP (ADACEL) 2010-11-18 Completed [facility] of VACCINE 00:00:00 [facility] HEPATITIS A 2004-03-02 Completed [facility] of 00:00:00 [facility] HEPATITIS A 2004-03-02 Completed [facility] of 00:00:00 [facility] HEPATITIS A 2004-03-02 Completed [facility] of 00:00:00 [facility] HEPATITIS A 2004-03-02 Completed [facility] of 00:00:00 [facility] HEPATITIS A 2004-03-02 Completed [facility] of 00:00:00 [facility] HEPATITIS A 2004-03-02 Completed [facility] of 00:00:00 [facility] HEPATITIS A 2004-03-02 Completed [facility] of 00:00:00 [facility] HEPATITIS A 2004-03-02 Completed [facility] of 00:00:00 [facility] HEPATITIS A 2004-03-02 Completed [facility] of 00:00:00 [facility] HEPATITIS A 2004-03-02 Completed [facility] of 00:00:00 [facility] HEPATITIS A 2004-03-02 Completed [facility] of 00:00:00 [facility] HEPATITIS A 2004-03-02 Completed [facility] of 00:00:00 [facility] HEPATITIS A 2004-03-02 Completed [facility] of 00:00:00 [facility] HEPATITIS A 2004-03-02 Completed [facility] of 00:00:00 [facility] HEPATITIS A 2004-03-02 Completed [facility] 00:00:00 [facility] HEPATITIS A 2004-03-02 Completed [facility] 00:00:00 [facility] HEPATITIS A 2004-03-02 Completed [facility] 00:00:00 [facility] HEPATITIS A 2004-03-02 Completed [facility] 00:00:00 [facility] HEPATITIS A 2003-08-01 Completed [facility] of 00:00:00 [facility] HEPATITIS A 2003-08-01 Completed [facility] 00:00:00 [facility] HEPATITIS A 2003-08-01 Completed [facility] of 00:00:00 [facility] HEPATITIS A 2003-08-01 Completed [facility] of 00:00:00 [facility] HEPATITIS A 2003-08-01 Completed [facility] 00:00:00 [facility] HEPATITIS A 2003-08-01 Completed [facility] 00:00:00 [facility] HEPATITIS A 2003-08-01 Completed [facility] 00:00:00 [facility] HEPATITIS A 2003-08-01 Completed [facility] 00:00:00 [facility] HEPATITIS A 2003-08-01 Completed [facility] 00:00:00 [facility] HEPATITIS A 2003-08-01 Completed [facility] 00:00:00 [facility] HEPATITIS A 2003-08-01 Completed [facility] 00:00:00 [facility] HEPATITIS A 2003-08-01 Completed [facility] 00:00:00 [facility] HEPATITIS A 2003-08-01 Completed [facility] 00:00:00 [facility] HEPATITIS A 2003-08-01 Completed [facility] 00:00:00 [facility] HEPATITIS A 2003-08-01 Completed [facility] 00:00:00 [facility] HEPATITIS A 2003-08-01 Completed [facility] of 00:00:00 [facility] HEPATITIS A 2003-08-01 Completed [facility] of 00:00:00 [facility] HEPATITIS A 2003-08-01 Completed [facility] of 00:00:00 [facility] Pneumococcal 2001-10-04 Completed University o f Polysaccharide, 00:00:00 [place] [facility] PPSV23 (PNEUMOVAX) Branch PPD (TB) 2001-10-04 Completed [facility] of 00:00:00 [facility] Pneumococcal 2001-10-04 Completed University o f Polysaccharide, 00:00:00 [place] [facility] PPSV23 (PNEUMOVAX) Branch PPD (TB) 2001-10-04 Completed [facility] of 00:00:00 [facility] Pneumococcal 2001-10-04 Completed University o f Polysaccharide, 00:00:00 [place] [facility] PPSV23 (PNEUMOVAX) Branch PPD (TB) 2001-10-04 Completed [facility] of 00:00:00 [facility] Pneumococcal 2001-10-04 Completed University o f Polysaccharide, 00:00:00 [place] [facility] PPSV23 (PNEUMOVAX) Branch PPD (TB) 2001-10-04 Completed [facility] of 00:00:00 [facility] Pneumococcal 2001-10-04 Completed University o f Polysaccharide, 00:00:00 [place] [facility] PPSV23 (PNEUMOVAX) Branch PPD (TB) 2001-10-04 Completed [facility] of 00:00:00 [facility] Pneumococcal 2001-10-04 Completed University o f Polysaccharide, 00:00:00 [place] [facility] PPSV23 (PNEUMOVAX) Branch PPD (TB) 2001-10-04 Completed [facility] of 00:00:00 [facility] Pneumococcal 2001-10-04 Completed University o f Polysaccharide, 00:00:00 [place] [facility] PPSV23 (PNEUMOVAX) Branch PPD (TB) 2001-10-04 Completed [facility] of 00:00:00 [facility] Pneumococcal 2001-10-04 Completed University o f Polysaccharide, 00:00:00 [place] [facility] PPSV23 (PNEUMOVAX) Branch PPD (TB) 2001-10-04 Completed [facility] of 00:00:00 [facility] Pneumococcal 2001-10-04 Completed University o f Polysaccharide, 00:00:00 [place] [facility] PPSV23 (PNEUMOVAX) Branch PPD (TB) 2001-10-04 Completed [facility] of 00:00:00 [facility] Pneumococcal 2001-10-04 Completed University o f Polysaccharide, 00:00:00 [place] [facility] PPSV23 (PNEUMOVAX) Branch PPD (TB) 2001-10-04 Completed [facility] of 00:00:00 [facility] Pneumococcal 2001-10-04 Completed University o f Polysaccharide, 00:00:00 [place] [facility] PPSV23 (PNEUMOVAX) Branch PPD (TB) 2001-10-04 Completed [facility] of 00:00:00 [facility] Pneumococcal 2001-10-04 Completed University o f Polysaccharide, 00:00:00 [place] [facility] PPSV23 (PNEUMOVAX) Branch PPD (TB) 2001-10-04 Completed [facility] of 00:00:00 [facility] Pneumococcal 2001-10-04 Completed University o f Polysaccharide, 00:00:00 [place] [facility] PPSV23 (PNEUMOVAX) Branch PPD (TB) 2001-10-04 Completed [facility] of 00:00:00 [facility] Pneumococcal 2001-10-04 Completed University o f Polysaccharide, 00:00:00 [place] [facility] PPSV23 (PNEUMOVAX) Branch PPD (TB) 2001-10-04 Completed [facility] of 00:00:00 [facility] Pneumococcal 2001-10-04 Completed University o f Polysaccharide, 00:00:00 [place] [facility] PPSV23 (PNEUMOVAX) Branch PPD (TB) 2001-10-04 Completed [facility] of 00:00:00 [facility] Pneumococcal 2001-10-04 Completed University o f Polysaccharide, 00:00:00 [place] [facility] PPSV23 (PNEUMOVAX) Branch PPD (TB) 2001-10-04 Completed [facility] of 00:00:00 [facility] Pneumococcal 2001-10-04 Completed University o f Polysaccharide, 00:00:00 [place] [facility] PPSV23 (PNEUMOVAX) Branch PPD (TB) 2001-10-04 Completed [facility] of 00:00:00 [facility] Pneumococcal 2001-10-04 Completed University o f Polysaccharide, 00:00:00 [place] [facility] PPSV23 (PNEUMOVAX) Branch PPD (TB) 2001-10-04 Completed [facility] of 00:00:00 [facility] Vital Signs Vital Name Observation Time Observation Value Comments Source Systolic blood 2022-05-10 22:00:00 159 mm[Hg] Univer sity of pressure [facility] Diastolic blood 2022-05-10 22:00:00 87 mm[Hg] Unive rsity of pressure [facility] Heart rate 2022-05-10 22:00:00 56 /min [facility] Body temperature 2022-05-10 22:00:00 36.61 Amina Univ ersity of [facility] Respiratory rate 2022-05-10 22:00:00 17 /min Univ ersity of [place] [facility] Oxygen saturation in 2022-05-10 22:00:00 98 /min University of Arterial blood by [place] [facility] Pulse oximetry Branch Body weight 2022-05-10 16:29:00 78.926 kg [facility] [place] [facility] BMI 2022-05-10 16:29:00 29.87 kg/m2 [facility] [place] [facility] Systolic blood 2022-05-08 22:30:00 168 mm[Hg] Univer sity of pressure [place] [facility] Diastolic blood 2022-05-08 22:30:00 85 mm[Hg] Unive rsity of pressure [place] [facility] Heart rate 2022-05-08 22:30:00 68 /min [facility] [place] [facility] Oxygen saturation in 2022-05-08 22:30:00 100 /min University of Arterial blood by [place] [facility] Pulse oximetry Branch Body temperature 2022-05-08 22:22:00 35.89 Amina Univ ersity of [place] [facility] Respiratory rate 2022-05-08 22:22:00 14 [...] 99 /min University of Arterial blood by [place] [facility] Pulse oximetry Branch Body temperature 2022-05-06 20:12:00 36.5 Amina Univ ersity of [place] [facility] Body height 2022-05-06 20:12:00 162.6 cm [facility] [place] [facility] Body weight 2022-05-06 20:12:00 78.926 kg [facility] [place] [facility] BMI 2022-05-06 20:12:00 29.87 kg/m2 [facility] [place] [facility] Systolic blood 2022-04-22 19:50:00 156 mm[Hg] Univer sity of pressure [place] [facility] Diastolic blood 2022-04-22 19:50:00 89 mm[Hg] Unive rsity of pressure [place] [facility] Heart rate 2022-04-22 19:50:00 69 /min [facility] [place] [facility] [place] Body temperature 2022-04-22 19:50:00 36.67 Amina Univ ersity of [place] [facility] Respiratory rate 2022-04-22 19:50:00 17 /min Univ ersity of [place] [facility] Body height 2022-04-22 19:50:00 162.6 cm [facility] [place] [facility] Body weight 2022-04-22 19:50:00 80.74 kg [facility] [place] [facility] BMI 2022-04-22 19:50:00 30.55 kg/m2 [facility] [place] [facility] [place] Oxygen saturation in 2022-04-22 19:50:00 96 /min University of Arterial blood by [facility] Pulse oximetry Branch Systolic blood 2022-03-05 15:23:00 167 mm[Hg] Univer sity of pressure [place] [facility] Diastolic blood 2022-03-05 15:23:00 105 mm[Hg] Unive rsity of pressure [place] [facility] Heart rate 2022-03-05 15:23:00 49 /min [facility] [place] [facility] Body temperature 2022-03-05 15:18:00 36.67 Amina Univ ersity of [facility] Branch Respiratory rate 2022-03-05 15:18:00 18 /min Univ ersity of [place] [facility] Body height 2022-03-05 15:18:00 162.6 cm [facility] [place] [facility] Body weight 2022-03-05 15:18:00 74.707 kg [facility] [place] [facility] BMI 2022-03-05 15:18:00 28.27 kg/m2 [facility] [place] [facility] Systolic blood 2022-02-16 21:41:00 169 mm[Hg] Univer sity of pressure [place] [facility] Diastolic blood 2022-02-16 21:41:00 86 mm[Hg] Unive rsity of pressure [place] [facility] Heart rate 2022-02-16 21:41:00 51 /min [facility] [place] [facility] [place] Body temperature 2022-02-16 21:41:00 36.56 Amina [facility] ersity of [facility] Respiratory rate 2022-02-16 21:41:00 17 /min [facility] Oxygen saturation in 2022-02-16 21:41:00 98 /min University of Arterial blood by [facility] Pulse oximetry Branch Body height 2022-02-11 16:02:00 162.6 cm [facility] [place] [facility] [place] Body weight 2022-02-11 16:02:00 79.379 kg [facility] [place] [facility] [place] BMI 2022-02-11 16:02:00 30.04 kg/m2 Universi ty of [facility] Systolic blood 2021-11-20 13:47:00 165 mm[Hg] Univer sity of pressure [facility] Diastolic blood 2021-11-20 13:47:00 83 mm[Hg] Unive rsity of pressure [facility] Heart rate 2021-11-20 13:47:00 58 /min [facility] [place] [facility] [place] Body temperature 2021-11-20 13:42:00 36.39 Amina [facility] ersity of [facility] Respiratory rate 2021-11-20 13:42:00 16 /min [facility] ersity of [facility] Body height 2021-11-20 13:42:00 162.6 cm [facility] [place] [facility] [place] Body weight 2021-11-20 13:42:00 84.369 kg [facility] [place] [facility] [place] BMI 2021-11-20 13:42:00 31.93 kg/m2 [facility] [place] [facility] Systolic blood 2021-07-14 15:18:00 142 [...] 15:23:00 167 mm[Hg] Univer sity of pressure [facility] Diastolic blood 2022-03-05 15:23:00 105 mm[Hg] Unive rsity of pressure [facility] Heart rate 2022-03-05 15:23:00 49 /min Universi ty [facility] Body temperature 2022-03-05 15:18:[address] [facility] Respiratory rate 2022-03-05 15:18:00 18 /min [facility] Body height 2022-03-05 15:18:[address] [facility] Body weight 2022-03-05 15:18:[address] [facility] BMI 2022-03-05 15:18:00 28.27 kg/m2 [facility] Oxygen saturation in 2022-02-16 21:41:00 98 /min University Arterial blood by [facility] Pulse oximetry [place] Systolic blood 2020-12-08 15:48:00 125 mm[Hg] [facility] pressure Diastolic blood 2020-12-08 15:48:00 76 mm[Hg] [facility] pressure Heart rate 2020-12-08 15:48:00 64 /min [facility] Body temperature 2020-12-08 15:48:00 36.61 Amina [facility] Respiratory rate 2020-12-08 15:48:00 17 /min [facility] Body height 2020-12-08 15:48:00 162.6 cm [facility] Body weight 2020-12-08 15:48:00 98.884 kg [facility] BMI 2020-12-08 15:48:00 37.42 kg/m2 [facility] Oxygen saturation in 2020-12-08 15:48:00 97 /min [facility] Arterial blood by Pulse oximetry Respitory Rate 2020-08-30 13:00:00 Memraymond al Matry Systolic (mm Hg) 2020-08-30 13:00:00 Caesar rial Marty Diastolic (mm Hg) 2020-08-30 13:00:00 Mem orial [place] Systolic (mm Hg) 2020-08-30 11:00:00 Caesar rial [place] Diastolic (mm Hg) 2020-08-30 11:00:00 Mem orial [place] Temperature Oral (F) 2020-08-30 11:00:00 98.4 F [facility] Respitory Rate 2020-08-30 11:00:00 Memori al [place] Respitory Rate 2020-08-30 10:00:00 Memori al [place] Systolic (mm Hg) 2020-08-30 10:00:00 Caesar rial [place] Diastolic (mm Hg) 2020-08-30 10:00:00 Mem orial [place] Temperature Oral (F) 2020-08-30 00:00:00 96.9 F [facility] Temperature Oral (F) 2020-08-29 11:26:00 97.6 F [facility] Height 2020-08-29 10:30:00 162.56 cm [facility] Weight 2020-08-29 10:30:00 [facility] BMI Calculated 2020-08-29 10:30:00 Darien Fernandezann Procedures Procedure Date / Time Performing Clinician Source Performed URINALYSIS 2022-05-10 19:36:[address] [facility] TROPONIN I 2022-05-10 18:34:[address] [facility] COMP. METABOLIC PANEL 2022-05-10 18:34:00 Home [facility] ([id number]) [facility] CBC WITH DIFF 2022-05-10 18:34:[address] [facility] XR CHEST 2 VW 2022-05-10 17:24:[address] [facility] CONSENT/REFUSAL FOR 2022-05-10 16:26:23 Doctor Unassigned, [facility] DIAGNOSIS AND TREATMENT [place] [facility] CONSENT/REFUSAL FOR 2022-05-10 16:26:09 Doctor Unassigned, [facility] DIAGNOSIS AND TREATMENT [place] [facility] URINALYSIS 2022-05-08 22:43:00 [facility] XR CHEST 2 VW 2022-05-06 22:56:[address] [facility] COMP. METABOLIC PANEL 2022-05-06 22:14:00 Anette Olea [facility] ([id number]) Medical Branch CBC WITH DIFF 2022-05-06 22:14:[address] [facility] COVID-19 (ID NOW RAPID 2022-05-06 22:14:00 Anette Olea [facility] TESTING) Medical Branch BASIC METABOLIC PANEL (NA, 2022-04-22 21:23:00 Paulette Gray [facility] K, CL, CO2, GLUCOSE, BUN, Medica l Branch CREATININE, [place]) CBC WITH DIFF 2022-04-22 21:23:00 Paulette Gray [facility] CONSENT/REFUSAL FOR 2022-04-22 19:45:46 Doctor Unassigned, [facility] DIAGNOSIS AND TREATMENT [place] [facility] SARS-COV-2 COVID-19 2022-03-05 16:09:27 [facility] DIMITRIS-SUCROSE VACCINE [address] [place] [id number] YRS+, BIVALENT 0.3ML, IM, (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) FLU 2022-03-05 16:09:27 [facility] VACC(),65+YR,0.5 Medica l Branch ML,IM,ADJUVANTED,QUAD(FLUA D) FLU 2022-03-05 16:09:27 [facility] VACC(),65+YR,0.5 Medica l Branch ML,IM,ADJUVANTED,QUAD(FLUA D) SARS-COV-2 COVID-19 2022-03-05 16:09:27 [facility] DIMITRIS-SUCROSE VACCINE [address] [place] [address] YRS+, BIVALENT 0.3ML, IM, (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) MAGNESIUM 2022-02-15 09:41:[address] [facility] BASIC METABOLIC PANEL (NA, 2022-02-15 09:41:00 Sofia Garcia [facility] K, CL, CO2, GLUCOSE, BUN, Medica l Branch CREATININE, CA) CBC WITH DIFF 2022-02-15 09:41:[address] [facility] N-TERMINAL PRO-BNP 2022-02-15 09:41:[address] [facility] CBC WITH DIFF 2022-02-15 09:41:00 [facility] (NA, 2022-02-15 09:41[facility]00 [facility], CO2, GLUCOSE, BUN, Medica l Branch CREATININE, CA) MAGNESIUM 2022-02-15 09:41:00 Radha [facility] N-TERMINAL PRO-BNP 2022-02-15 09:41:[address] [facility] BASIC METABOLIC PANEL (NA, 2022-02-13 09:40:00 [facility], CO2, GLUCOSE, BUN, Medica l Branch CREATININE, CA) CBC WITH DIFF 2022-02-13 09:40:00 Radha [facility] BASIC METABOLIC PANEL (NA, 2022-02-13 09:40:00 Radha Counts include 234 beds at the [facility] K, CL, CO2, GLUCOSE, BUN, Medica l Branch CREATININE, CA) CBC WITH DIFF 2022-02-13 09:40:00 Radha [facility] TROPONIN I 2022-02-11 23:41:00 Radha [facility] N-TERMINAL PRO-BNP 2022-02-11 23:41:[address] [facility] TROPONIN I 2022-02-11 23:41:[address] [facility] N-TERMINAL PRO-BNP 2022-02-11 23:41:[address] [facility] HB ECG ROUTINE & RHYTHM 2022-02-11 22:15:36 [facility] (TTE) 2022-02-11 21:26:50 [facility] (TTE) 2022-02-11 21:26:50 [facility] 2022-02-11 07:45:[address] [facility] CT ABDOMEN PELVIS W 2022-02-11 07:45:[address] [facility] RAPID INFLUENZA A/B 2022-02-11 06:54:[address] [facility] RAPID INFLUENZA A/B 2022-02-11 06:54:[address] [facility] URINALYSIS 2022-02-11 06:45:00 Reilly Means [facility] URINE CULTURE 2022-02-11 06:45:00 Reilly Means [facility] URINALYSIS 2022-02-11 06:45:00 Reilly Means [facility] URINE CULTURE 2022-02-11 06:45:00 Reilly Means [facility] HB ECG ROUTINE & RHYTHM 2022-02-11 05:22:08 Reilly Means [facility] HB ECG ROUTINE & RHYTHM 2022-02-11 05:22:08 Reilly Means [facility] BLOOD CULTURE SCREEN 2022-02-11 04:58:00 Reilly Means [facility] TROPONIN I 2022-02-11 04:58:00 Reilly Means [facility] COMP. METABOLIC PANEL 2022-02-11 04:58:00 Reilly Means [facility] ([id number]) [facility] CBC WITH DIFF 2022-02-11 04:58:00 Reilly Means [facility] PROTHROMBIN TIME / INR 2022-02-11 04:58:00 Reilly Means [facility] ACTIVATED PARTIAL THRMPLAS 2022-02-11 04:58:00 Reilly Means [facility] N-TERMINAL PRO-BNP 2022-02-11 04:58:00 Reilly Means [facility] LACTIC ACID WHOLE BLOOD 2022-02-11 04:58:00 Reilly Means [facility] COVID-19 (ID NOW RAPID 2022-02-11 04:58:00 Reilly Means [facility] TESTING) Medical Branch LAB ONLY COVID 2022-02-11 04:58:00 Reilly Means [facility] CBC WITH DIFF 2022-02-11 04:58:00 Reilly Means [facility] ACTIVATED PARTIAL THRMPLAS 2022-02-11 04:58:00 Reilly Means [facility] PROTHROMBIN TIME / INR 2022-02-11 04:58:00 Reilly Means [facility] COVID-19 (ID NOW RAPID 2022-02-11 04:58:00 Reilly Means [facility] TESTING) Medical Branch COMP. METABOLIC PANEL 2022-02-11 04:58:00 Reilly Means [facility] ([id number]) Medical [place] TROPONIN I 2022-02-11 04:58:00 Reilly Means [facility] N-TERMINAL PRO-BNP 2022-02-11 04:58:00 Reilly Means [facility] BLOOD CULTURE SCREEN 2022-02-11 04:58:00 Reilly Means [facility] LACTIC ACID WHOLE BLOOD 2022-02-11 04:58:00 Reilly Means [facility] LAB ONLY COVID 2022-02-11 04:58:00 Reilly Means [facility] XR CHEST 1 VW 2022-02-11 04:27:42 Miguelangel Reilly [facility] XR CHEST 1 VW 2022-02-11 04:27:42 Miguelangel Reilly [facility] HOSPITAL ADMISSION 2022-02-10 05:01:00 Doctor Unassigned, [facility] [place] HOSPITAL ADMISSION 2022-02-10 05:01:00 Doctor Unassigned, [facility] [place] ECG 12-LEAD 2021-07-14 15:14:00 Elan Lira [facility] [id number] 2021-06-17 00:00:00 GRACEA [facility] GASTROINTESTINAL PANEL 2020-12-08 22:21:00 Eliseo Arce [facility] XR ABDOMEN 1 VW 2020-12-08 18:06:32 Eliseo [facility] [place] < 1 HOUR 2020-09-05 22:39:00 Eliseo Arce SURGICAL PATHOLOGY REQUEST 2020-09-05 21:54:00 Eliseo Arce [facility] XR CHEST 1 VW PORTABLE 2020-09-05 19:55:[address] [facility] DISCHARGE PATIENT 2020-09-05 17:27:55 Lucas Harris [facility] MT AN ELECTIVE 2020-09-05 16:47:23 Kirit Flood V. [facility] ENDOTRACHEAL AIRWAY EGD, INTRAOPERATIVE 2020-09-05 16:27:00 Eliseo Arce [facility] PARTIAL THROMBOPLASTIN 2020-09-05 15:04:00 Sarai Maharaj [facility] TIME (PTT) M. PROTHROMBIN TIME WITH INR 2020-09-05 15:04:00 Mindy Maharaj [facility] M. Plan of Care Planned Activity Planned Date Details Comments Source Future Scheduled 2022-06-11 SHINGLES VACCINES (1 Met [facility] Test 16:10:12 of 2) [code = SHINGLES VACCINES (1 of 2)] Future Scheduled 2022-06-11 BREAST CANCER [facility] Test 16:10:12 SCREENING [code = BREAST CANCER SCREENING] Future Scheduled 2022-06-11 COLONOSCOPY SCREENING [facility] Test 16:10:12 [code = COLONOSCOPY SCREENING] Future Scheduled 2022-06-11 HEPATITIS B VACCINES [facility] Test 16:10:12 (1 of 3 - Risk 3-dose series) [code = HEPATITIS B VACCINES (1 of 3 - Risk 3-dose series)] Future Scheduled 2022-06-11 COVID-19 VACCINE (3 - [facility] Test 16:10:12 Booster for Pfizer series) [code = COVID-19 VACCINE (3 - Booster for Pfizer series)] Future Scheduled 2022-06-11 65+ PNEUMOCOCCAL [facility] Test 16:10:12 VACCINE (4 - PPSV23 if available, else PCV20) [code = 65+ PNEUMOCOCCAL VACCINE (4 - PPSV23 if available, else PCV20)] Future Scheduled 2022-06-11 INFLUENZA VACCINE Method [facility] Test 16:10:12 [code = INFLUENZA VACCINE] Future Scheduled 2022-06-11 SHINGLES VACCINES (1 [facility] Test 16:10:12 of 2) [code = SHINGLES VACCINES (1 of 2)] Future Scheduled 2022-06-11 BREAST CANCER [facility] Test 16:10:12 SCREENING [code = BREAST CANCER SCREENING] Future Scheduled 2022-06-11 COLONOSCOPY SCREENING [facility] Test 16:10:12 [code = COLONOSCOPY SCREENING] Future Scheduled 2022-06-11 HEPATITIS B VACCINES [facility] Test 16:10:12 (1 of 3 - Risk 3-dose series) [code = HEPATITIS B VACCINES (1 of 3 - Risk 3-dose series)] Future Scheduled 2022-06-11 COVID-19 VACCINE (3 - Me [facility] Test 16:10:12 Booster for Pfizer series) [code = COVID-19 VACCINE (3 - Booster for Pfizer series)] Future Scheduled 2022-06-11 65+ [facility] 16:10:12 VACCINE (4 - PPSV23 if available, else PCV20) [code = 65+ PNEUMOCOCCAL VACCINE (4 - PPSV23 if available, else PCV20)] Future Scheduled 2022-06-11 INFLUENZA VACCINE Method [facility] Test 16:10:12 [code = INFLUENZA VACCINE] Future Scheduled 2022-06-11 SHINGLES VACCINES (1 [facility] Test 16:10:12 of 2) [code = SHINGLES VACCINES (1 of 2)] Future Scheduled 2022-06-11 BREAST CANCER [facility] Test 16:10:12 SCREENING [code = BREAST CANCER SCREENING] Future Scheduled 2022-06-11 COLONOSCOPY SCREENING [facility] Test 16:10:12 [code = COLONOSCOPY SCREENING] Future Scheduled 2022-06-11 HEPATITIS B VACCINES [facility] Test 16:10:12 (1 of 3 - Risk 3-dose series) [code = HEPATITIS B VACCINES (1 of 3 - Risk 3-dose series)] Future Scheduled 2022-06-11 COVID-19 VACCINE (3 - Me [facility] Test 16:10:12 Booster for Pfizer series) [code = COVID-19 VACCINE (3 - Booster for Pfizer series)] Future Scheduled 2022-06-11 65+ [facility]CCAL [facility] 16:10:12 VACCINE (4 - PPSV23 if available, else PCV20) [code = 65+ PNEUMOCOCCAL VACCINE (4 - PPSV23 if available, else PCV20)] Future Scheduled 2022-06-11 INFLUENZA VACCINE Method [facility] Test 16:10:12 [code = INFLUENZA VACCINE] Future Scheduled 2022-06-11 SHINGLES VACCINES (1 Met [facility] Test 16:10:12 of 2) [code = SHINGLES VACCINES (1 of 2)] Future Scheduled 2022-06-11 BREAST CANCER [facility] Test 16:10:12 SCREENING [code = BREAST CANCER SCREENING] Future Scheduled 2022-06-11 COLONOSCOPY SCREENING [facility] Test 16:10:12 [code = COLONOSCOPY SCREENING] Future Scheduled 2022-06-11 HEPATITIS B VACCINES Met [facility] Test 16:10:12 (1 of 3 - Risk 3-dose series) [code = HEPATITIS B VACCINES (1 of 3 - Risk 3-dose series)] Future Scheduled 2022-06-11 COVID-19 VACCINE (3 - [facility] Test 16:10:12 Booster for Pfizer series) [code = COVID-19 VACCINE (3 - Booster for Pfizer series)] Future Scheduled 2022-06-11 65+ PNEUMOCOCCAL [facility] Test 16:10:12 VACCINE (4 - PPSV23 if available, else PCV20) [code = 65+ PNEUMOCOCCAL VACCINE (4 - PPSV23 if available, else PCV20)] Future Scheduled 2022-06-11 INFLUENZA VACCINE Method [facility] Test 16:10:12 [code = INFLUENZA VACCINE] Future Scheduled 2022-05-10 SHINGLES VACCINES (1 Met [facility] Test 10:21:35 of 2) [code = SHINGLES VACCINES (1 of 2)] Future Scheduled 2022-05-10 BREAST CANCER [facility] Test 10:21:35 SCREENING [code = BREAST CANCER SCREENING] Future Scheduled 2022-05-10 COLONOSCOPY SCREENING [facility] Test 10:21:35 [code = COLONOSCOPY SCREENING] Future Scheduled 2022-05-10 HEPATITIS B VACCINES Met [facility] Test 10:21:35 (1 of 3 - Risk 3-dose series) [code = HEPATITIS B VACCINES (1 of 3 - Risk 3-dose series)] Future Scheduled 2022-05-10 COVID-19 VACCINE (3 - [facility] Test 10:21:35 Booster for Pfizer series) [code = COVID-19 VACCINE (3 - Booster for Pfizer series)] Future Scheduled 2022-05-10 65+ [facility]AL [facility] Test 10:21:35 VACCINE (4 - PPSV23 if available, else PCV20) [code = 65+ PNEUMOCOCCAL VACCINE (4 - PPSV23 if available, else PCV20)] Future Scheduled 2022-05-10 INFLUENZA VACCINE Method [facility] Test 10:21:35 [code = INFLUENZA VACCINE] Future Scheduled 2022-05-10 SHINGLES VACCINES (1 Met [facility] Test 10:21:35 of 2) [code = SHINGLES VACCINES (1 of 2)] Future Scheduled 2022-05-10 BREAST CANCER [facility] Test 10:21:35 SCREENING [code = BREAST CANCER SCREENING] Future Scheduled 2022-05-10 COLONOSCOPY SCREENING [facility] Test 10:21:35 [code = COLONOSCOPY SCREENING] Future Scheduled 2022-05-10 HEPATITIS B VACCINES Met [facility] Test 10:21:35 (1 of 3 - Risk 3-dose series) [code = HEPATITIS B VACCINES (1 of 3 - Risk 3-dose series)] Future Scheduled 2022-05-10 COVID-19 VACCINE (3 - [facility] Test 10:21:35 Booster for Pfizer series) [code = COVID-19 VACCINE (3 - Booster for Pfizer series)] Future Scheduled 2022-05-10 65+ [facility] 10:21:35 VACCINE (4 - PPSV23 if available, else PCV20) [code = 65+ PNEUMOCOCCAL VACCINE (4 - PPSV23 if available, else PCV20)] Future Scheduled 2022-05-10 INFLUENZA VACCINE Method [facility] Test 10:21:35 [code = INFLUENZA VACCINE] Future Scheduled 2022-05-06 SHINGLES VACCINES (1 Met [facility] Test 14:03:13 of 2) [code = SHINGLES VACCINES (1 of 2)] Future Scheduled 2022-05-06 BREAST CANCER [facility] Test 14:03:13 SCREENING [code = BREAST CANCER SCREENING] Future Scheduled 2022-05-06 COLONOSCOPY SCREENING [facility] Test 14:03:13 [code = COLONOSCOPY SCREENING] Future Scheduled 2022-05-06 HEPATITIS B VACCINES [facility] Test 14:03:13 (1 of 3 - Risk 3-dose series) [code = HEPATITIS B VACCINES (1 of 3 - Risk 3-dose series)] Future Scheduled 2022-05-06 COVID-19 VACCINE (3 - [facility] Test 14:03:13 Booster for Pfizer series) [code = COVID-19 VACCINE (3 - Booster for Pfizer series)] Future Scheduled 2022-05-06 65+ PNEUMOCOCCAL [facility] Test 14:03:13 VACCINE (4 - PPSV23 if available, else PCV20) [code = 65+ PNEUMOCOCCAL VACCINE (4 - PPSV23 if available, else PCV20)] Future Scheduled 2022-05-06 INFLUENZA VACCINE Method [facility] Test 14:03:13 [code = INFLUENZA VACCINE] Future Scheduled 2022-04-30 SHINGLES VACCINES (1 Met [facility] Test 01:07:32 of 2) [code = SHINGLES VACCINES (1 of 2)] Future Scheduled 2022-04-30 BREAST CANCER [facility] Test 01:07:32 SCREENING [code = BREAST CANCER SCREENING] Future Scheduled 2022-04-30 COLONOSCOPY SCREENING [facility] Test 01:07:32 [code = COLONOSCOPY SCREENING] Future Scheduled 2022-04-30 HEPATITIS B VACCINES Met [facility] Test 01:07:32 (1 of 3 - Risk 3-dose series) [code = HEPATITIS B VACCINES (1 of 3 - Risk 3-dose series)] Future Scheduled 2022-04-30 COVID-19 VACCINE (3 - Me [facility] Test 01:07:32 Booster for Pfizer series) [code = COVID-19 VACCINE (3 - Booster for Pfizer series)] Future Scheduled 2022-04-30 65+ PNEUMOCOCCAL [facility] Test 01:07:32 VACCINE (4 - PPSV23 if available, else PCV20) [code = 65+ PNEUMOCOCCAL VACCINE (4 - PPSV23 if available, else PCV20)] Future Scheduled 2022-04-30 INFLUENZA VACCINE Method [facility] Test 01:07:32 [code = INFLUENZA VACCINE] Future Scheduled 2022-04-30 SHINGLES VACCINES (1 Met [facility] Test 01:07:32 of 2) [code = SHINGLES VACCINES (1 of 2)] Future Scheduled 2022-04-30 BREAST CANCER [facility] Test 01:07:32 SCREENING [code = BREAST CANCER SCREENING] Future Scheduled 2022-04-30 COLONOSCOPY SCREENING [facility] Test 01:07:32 [code = COLONOSCOPY SCREENING] Future Scheduled 2022-04-30 HEPATITIS B VACCINES [facility] Test 01:07:32 (1 of 3 - Risk 3-dose series) [code = HEPATITIS B VACCINES (1 of 3 - Risk 3-dose series)] Future Scheduled 2022-04-30 COVID-19 VACCINE (3 - [facility] Test 01:07:32 Booster for Pfizer series) [code = COVID-19 VACCINE (3 - Booster for Pfizer series)] Future Scheduled 2022-04-30 65+ PNEUMOCOCCAL [facility] Test 01:07:32 VACCINE (4 - PPSV23 if available, else PCV20) [code = 65+ PNEUMOCOCCAL VACCINE (4 - PPSV23 if available, else PCV20)] Future Scheduled 2022-04-30 INFLUENZA VACCINE Method [facility] Test 01:07:32 [code = INFLUENZA VACCINE] Future Scheduled 2022-04-30 SHINGLES VACCINES (1 Met [facility] Test 01:07:32 of 2) [code = SHINGLES VACCINES (1 of 2)] Future Scheduled 2022-04-30 BREAST CANCER [facility] Test 01:07:32 SCREENING [code = BREAST CANCER SCREENING] Future Scheduled 2022-04-30 COLONOSCOPY SCREENING [facility] Test 01:07:32 [code = COLONOSCOPY SCREENING] Future Scheduled 2022-04-30 HEPATITIS B VACCINES Met [facility] Test 01:07:32 (1 of 3 - Risk 3-dose series) [code = HEPATITIS B VACCINES (1 of 3 - Risk 3-dose series)] Future Scheduled 2022-04-30 COVID-19 VACCINE (3 - [facility] Test 01:07:32 Booster for Pfizer series) [code = COVID-19 VACCINE (3 - Booster for Pfizer series)] Future Scheduled 2022-04-30 65+ PNEUMOCOCCAL [facility] Test 01:07:32 VACCINE (4 - PPSV23 if available, else PCV20) [code = 65+ PNEUMOCOCCAL VACCINE (4 - PPSV23 if available, else PCV20)] Future Scheduled 2022-04-30 INFLUENZA VACCINE Method [facility] Test 01:07:32 [code = INFLUENZA VACCINE] Future Scheduled 2022-04-25 SHINGLES VACCINES (1 Met [facility] Test 01:45:02 of 2) [code = SHINGLES VACCINES (1 of 2)] Future Scheduled 2022-04-25 BREAST CANCER [facility] Test 01:45:02 SCREENING [code = BREAST CANCER SCREENING] Future Scheduled 2022-04-25 COLONOSCOPY SCREENING [facility] Test 01:45:02 [code = COLONOSCOPY SCREENING] Future Scheduled 2022-04-25 HEPATITIS B VACCINES Met [facility] Test 01:45:02 (1 of 3 - Risk 3-dose series) [code = HEPATITIS B VACCINES (1 of 3 - Risk 3-dose series)] Future Scheduled 2022-04-25 COVID-19 VACCINE (3 - Me [facility] Test 01:45:02 Booster for Pfizer series) [code = COVID-19 VACCINE (3 - Booster for Pfizer series)] Future Scheduled 2022-04-25 65+ [facility] 01:45:02 VACCINE (4 - PPSV23 if available, else PCV20) [code = 65+ PNEUMOCOCCAL VACCINE (4 - PPSV23 if available, else PCV20)] Future Scheduled 2022-04-25 INFLUENZA VACCINE Method [facility] Test 01:45:02 [code = INFLUENZA VACCINE] Future Scheduled 2022-03-25 SHINGLES VACCINES (1 Met [facility] Test 14:48:42 of 2) [code = SHINGLES VACCINES (1 of 2)] Future Scheduled 2022-03-25 BREAST CANCER [facility] Test 14:48:42 SCREENING [code = BREAST CANCER SCREENING] Future Scheduled 2022-03-25 COLONOSCOPY SCREENING [facility] Test 14:48:42 [code = COLONOSCOPY SCREENING] Future Scheduled 2022-03-25 HEPATITIS B VACCINES Met [facility] Test 14:48:42 (1 of 3 - Risk 3-dose series) [code = HEPATITIS B VACCINES (1 of 3 - Risk 3-dose series)] Future Scheduled 2022-03-25 COVID-19 VACCINE (3 - Me [facility] Test 14:48:42 Booster for Pfizer series) [code = COVID-19 VACCINE (3 - Booster for Pfizer series)] Future Scheduled 2022-03-25 65+ [facility]AL [facility] 14:48:42 VACCINE (4 - PPSV23 if available, else PCV20) [code = 65+ PNEUMOCOCCAL VACCINE (4 - PPSV23 if available, else PCV20)] Future Scheduled 2022-03-25 INFLUENZA VACCINE Method [facility] Test 14:48:42 [code = INFLUENZA VACCINE] Future Scheduled 2022-03-25 SHINGLES VACCINES (1 Met [facility] Test 14:48:42 of 2) [code = SHINGLES VACCINES (1 of 2)] Future Scheduled 2022-03-25 BREAST CANCER [facility] Test 14:48:42 SCREENING [code = BREAST CANCER SCREENING] Future Scheduled 2022-03-25 COLONOSCOPY SCREENING [facility] Test 14:48:42 [code = COLONOSCOPY SCREENING] Future Scheduled 2022-03-25 HEPATITIS B VACCINES Met [facility] Test 14:48:42 (1 of 3 - Risk 3-dose series) [code = HEPATITIS B VACCINES (1 of 3 - Risk 3-dose series)] Future Scheduled 2022-03-25 COVID-19 VACCINE (3 - [facility] Test 14:48:42 Booster for Pfizer series) [code = COVID-19 VACCINE (3 - Booster for Pfizer series)] Future Scheduled 2022-03-25 65+ [facility]OCOCCAL [facility] Test 14:48:42 VACCINE (4 - PPSV23 if available, else PCV20) [code = 65+ PNEUMOCOCCAL VACCINE (4 - PPSV23 if available, else PCV20)] Future Scheduled 2022-03-25 INFLUENZA VACCINE [facility] Test 14:48:42 [code = INFLUENZA VACCINE] Future Scheduled 2022-03-25 SHINGLES VACCINES (1 Met [facility] Test 14:48:42 of 2) [code = SHINGLES VACCINES (1 of 2)] Future Scheduled 2022-03-25 BREAST CANCER [facility] Test 14:48:42 SCREENING [code = BREAST CANCER SCREENING] Future Scheduled 2022-03-25 COLONOSCOPY SCREENING [facility] Test 14:48:42 [code = COLONOSCOPY SCREENING] Future Scheduled 2022-03-25 HEPATITIS B VACCINES Met [facility] Test 14:48:42 (1 of 3 - Risk 3-dose series) [code = HEPATITIS B VACCINES (1 of 3 - Risk 3-dose series)] Future Scheduled 2022-03-25 COVID-19 VACCINE (3 - [facility] Test 14:48:42 Booster for Pfizer series) [code = COVID-19 VACCINE (3 - Booster for Pfizer series)] Future Scheduled 2022-03-25 65+ P[facility]UMOCOCCAL [facility] Test 14:48:42 VACCINE (4 - PPSV23 if available, else PCV20) [code = 65+ PNEUMOCOCCAL VACCINE (4 - PPSV23 if available, else PCV20)] Future Scheduled 2022-03-25 INFLUENZA VACCINE [facility] Test 14:48:42 [code = INFLUENZA VACCINE] Future Scheduled 2022-03-25 SHINGLES VACCINES (1 Met [facility] Test 14:48:42 of 2) [code = SHINGLES VACCINES (1 of 2)] Future Scheduled 2022-03-25 BREAST CANCER [facility] Test 14:48:42 SCREENING [code = BREAST CANCER SCREENING] Future Scheduled 2022-03-25 COLONOSCOPY SCREENING [facility] Test 14:48:42 [code = COLONOSCOPY SCREENING] Future Scheduled 2022-03-25 HEPATITIS B VACCINES [facility] Test 14:48:42 (1 of 3 - Risk 3-dose series) [code = HEPATITIS B VACCINES (1 of 3 - Risk 3-dose series)] Future Scheduled 2022-03-25 COVID-19 VACCINE (3 - Me [facility] Test 14:48:42 Booster for Pfizer series) [code = COVID-19 VACCINE (3 - Booster for Pfizer series)] Future Scheduled 2022-03-25 65+ [facility] 14:48:42 VACCINE (4 - PPSV23 if available, else PCV20) [code = 65+ PNEUMOCOCCAL VACCINE (4 - PPSV23 if available, else PCV20)] Future Scheduled 2022-03-25 INFLUENZA VACCINE [facility] Test 14:48:42 [code = INFLUENZA VACCINE] Future Scheduled 2022-03-25 SHINGLES VACCINES (1 Met [facility] Test 14:48:42 of 2) [code = SHINGLES VACCINES (1 of 2)] Future Scheduled 2022-03-25 BREAST CANCER [facility] Test 14:48:42 SCREENING [code = BREAST CANCER SCREENING] Future Scheduled 2022-03-25 COLONOSCOPY SCREENING [facility] Test 14:48:42 [code = COLONOSCOPY SCREENING] Future Scheduled 2022-03-25 HEPATITIS B VACCINES [facility] Test 14:48:42 (1 of 3 - Risk 3-dose series) [code = HEPATITIS B VACCINES (1 of 3 - Risk 3-dose series)] Future Scheduled 2022-03-25 COVID-19 VACCINE (3 - Me [facility] Test 14:48:42 Booster for Pfizer series) [code = COVID-19 VACCINE (3 - Booster for Pfizer series)] Future Scheduled 2022-03-25 65+ PNEUMOCOCCAL [facility] Test 14:48:42 VACCINE (4 - PPSV23 if available, else PCV20) [code = 65+ PNEUMOCOCCAL VACCINE (4 - PPSV23 if available, else PCV20)] Future Scheduled 2022-03-25 INFLUENZA VACCINE Method [facility] Test 14:48:42 [code = INFLUENZA VACCINE] Future Scheduled 2022-03-25 SHINGLES VACCINES (1 Met [facility] Test 14:48:42 of 2) [code = SHINGLES VACCINES (1 of 2)] Future Scheduled 2022-03-25 BREAST CANCER [facility] Test 14:48:42 SCREENING [code = BREAST CANCER SCREENING] Future Scheduled 2022-03-25 COLONOSCOPY SCREENING [facility] Test 14:48:42 [code = COLONOSCOPY SCREENING] Future Scheduled 2022-03-25 HEPATITIS B VACCINES [facility] Test 14:48:42 (1 of 3 - Risk 3-dose series) [code = HEPATITIS B VACCINES (1 of 3 - Risk 3-dose series)] Future Scheduled 2022-03-25 COVID-19 VACCINE (3 - [facility] Test 14:48:42 Booster for Pfizer series) [code = COVID-19 VACCINE (3 - Booster for Pfizer series)] Future Scheduled 2022-03-25 65+ PNEUMOCOCCAL [facility] Test 14:48:42 VACCINE (4 - PPSV23 if available, else PCV20) [code = 65+ PNEUMOCOCCAL VACCINE (4 - PPSV23 if available, else PCV20)] Future Scheduled 2022-03-25 INFLUENZA VACCINE Method [facility] Test 14:48:42 [code = INFLUENZA VACCINE] Future Scheduled 2022-03-25 SHINGLES VACCINES (1 Met [facility] Test 14:48:42 of 2) [code = SHINGLES VACCINES (1 of 2)] Future Scheduled 2022-03-25 BREAST CANCER [facility] Test 14:48:42 SCREENING [code = BREAST CANCER SCREENING] Future Scheduled 2022-03-25 COLONOSCOPY SCREENING [facility] Test 14:48:42 [code = COLONOSCOPY SCREENING] Future Scheduled 2022-03-25 HEPATITIS B VACCINES [facility] Test 14:48:42 (1 of 3 - Risk 3-dose series) [code = HEPATITIS B VACCINES (1 of 3 - Risk 3-dose series)] Future Scheduled 2022-03-25 COVID-19 VACCINE (3 - Me [facility] Test 14:48:42 Booster for Pfizer series) [code = COVID-19 VACCINE (3 - Booster for Pfizer series)] Future Scheduled 2022-03-25 65+ P[facility]OCOCCAL [facility] Test 14:48:42 VACCINE (4 - PPSV23 if available, else PCV20) [code = 65+ PNEUMOCOCCAL VACCINE (4 - PPSV23 if available, else PCV20)] Future Scheduled 2022-03-25 INFLUENZA VACCINE [facility] Test 14:48:42 [code = INFLUENZA VACCINE] Future Scheduled 2022-03-25 SHINGLES VACCINES (1 Met [facility] Test 14:48:42 of 2) [code = SHINGLES VACCINES (1 of 2)] Future Scheduled 2022-03-25 BREAST CANCER [facility] Test 14:48:42 SCREENING [code = BREAST CANCER SCREENING] Future Scheduled 2022-03-25 COLONOSCOPY SCREENING [facility] Test 14:48:42 [code = COLONOSCOPY SCREENING] Future Scheduled 2022-03-25 HEPATITIS B VACCINES [facility] Test 14:48:42 (1 of 3 - Risk 3-dose series) [code = HEPATITIS B VACCINES (1 of 3 - Risk 3-dose series)] Future Scheduled 2022-03-25 COVID-19 VACCINE (3 - [facility] Test 14:48:42 Booster for Pfizer series) [code = COVID-19 VACCINE (3 - Booster for Pfizer series)] Future Scheduled 2022-03-25 65+ P[facility]UMOCOCCAL [facility] Test 14:48:42 VACCINE (4 - PPSV23 if available, else PCV20) [code = 65+ PNEUMOCOCCAL VACCINE (4 - PPSV23 if available, else PCV20)] Future Scheduled 2022-03-25 INFLUENZA VACCINE [facility] Test 14:48:42 [code = INFLUENZA VACCINE] Future Scheduled 2022-03-25 SHINGLES VACCINES (1 Met [facility] Test 14:48:42 of 2) [code = SHINGLES VACCINES (1 of 2)] Future Scheduled 2022-03-25 BREAST CANCER [facility] Test 14:48:42 SCREENING [code = BREAST CANCER SCREENING] Future Scheduled 2022-03-25 COLONOSCOPY SCREENING [facility] Test 14:48:42 [code = COLONOSCOPY SCREENING] Future Scheduled 2022-03-25 HEPATITIS B VACCINES [facility] Test 14:48:42 (1 of 3 - Risk 3-dose series) [code = HEPATITIS B VACCINES (1 of 3 - Risk 3-dose series)] Future Scheduled 2022-03-25 COVID-19 VACCINE (3 - [facility] Test 14:48:42 Booster for Pfizer series) [code = COVID-19 VACCINE (3 - Booster for Pfizer series)] Future Scheduled 2022-03-25 65+ P[facility]UMOCOCCAL [facility] Test 14:48:42 VACCINE (4 - PPSV23 if available, else PCV20) [code = 65+ PNEUMOCOCCAL VACCINE (4 - PPSV23 if available, else PCV20)] Future Scheduled 2022-03-25 INFLUENZA VACCINE [facility] Test 14:48:42 [code = INFLUENZA VACCINE] Future Scheduled 2022-03-04 SHINGLES VACCINES (1 Met [facility] Test 14:03:57 of 2) [code = SHINGLES VACCINES (1 of 2)] Future Scheduled 2022-03-04 BREAST CANCER [facility] Test 14:03:57 SCREENING [code = BREAST CANCER SCREENING] Future Scheduled 2022-03-04 COLONOSCOPY SCREENING [facility] Test 14:03:57 [code = COLONOSCOPY SCREENING] Future Scheduled 2022-03-04 HEPATITIS B VACCINES [facility] Test 14:03:57 (1 of 3 - Risk 3-dose series) [code = HEPATITIS B VACCINES (1 of 3 - Risk 3-dose series)] Future Scheduled 2022-03-04 COVID-19 VACCINE (3 - [facility] Test 14:03:57 Booster for Pfizer series) [code = COVID-19 VACCINE (3 - Booster for Pfizer series)] Future Scheduled 2022-03-04 65+ [facility] 14:03:57 VACCINE (4 - PPSV23 if available, else PCV20) [code = 65+ PNEUMOCOCCAL VACCINE (4 - PPSV23 if available, else PCV20)] Future Scheduled 2022-03-04 INFLUENZA VACCINE [facility] Test 14:03:57 [code = INFLUENZA VACCINE] Future Scheduled 2022-03-04 SHINGLES VACCINES (1 Met [facility] Test 14:03:57 of 2) [code = SHINGLES VACCINES (1 of 2)] Future Scheduled 2022-03-04 BREAST CANCER [facility] Test 14:03:57 SCREENING [code = BREAST CANCER SCREENING] Future Scheduled 2022-03-04 COLONOSCOPY SCREENING [facility] Test 14:03:57 [code = COLONOSCOPY SCREENING] Future Scheduled 2022-03-04 HEPATITIS B VACCINES [facility] Test 14:03:57 (1 of 3 - Risk 3-dose series) [code = HEPATITIS B VACCINES (1 of 3 - Risk 3-dose series)] Future Scheduled 2022-03-04 COVID-19 VACCINE (3 - [facility] Test 14:03:57 Booster for Pfizer series) [code = COVID-19 VACCINE (3 - Booster for Pfizer series)] Future Scheduled 2022-03-04 65+ P[facility]UMOCOCCAL [facility] Test 14:03:57 VACCINE (4 - PPSV23 if available, else PCV20) [code = 65+ PNEUMOCOCCAL VACCINE (4 - PPSV23 if available, else PCV20)] Future Scheduled 2022-03-04 INFLUENZA VACCINE Method [facility] Test 14:03:57 [code = INFLUENZA VACCINE] Future Scheduled 2022-03-04 SHINGLES VACCINES (1 Met [facility] Test 14:03:57 of 2) [code = SHINGLES VACCINES (1 of 2)] Future Scheduled 2022-03-04 BREAST CANCER [facility] Test 14:03:57 SCREENING [code = BREAST CANCER SCREENING] Future Scheduled 2022-03-04 COLONOSCOPY SCREENING [facility] Test 14:03:57 [code = COLONOSCOPY SCREENING] Future Scheduled 2022-03-04 HEPATITIS B VACCINES [facility] Test 14:03:57 (1 of 3 - Risk 3-dose series) [code = HEPATITIS B VACCINES (1 of 3 - Risk 3-dose series)] Future Scheduled 2022-03-04 COVID-19 VACCINE (3 - Me [facility] Test 14:03:57 Booster for Pfizer series) [code = COVID-19 VACCINE (3 - Booster for Pfizer series)] Future Scheduled 2022-03-04 65+ PNEUMOCOCCAL [facility] Test 14:03:57 VACCINE (4 - PPSV23 if available, else PCV20) [code = 65+ PNEUMOCOCCAL VACCINE (4 - PPSV23 if available, else PCV20)] Future Scheduled 2022-03-04 [facility] 14:03:57 [code = INFLUENZA VACCINE] Future Scheduled 2022-03-04 SHINGLES VACCINES (1 Met [facility] Test 14:03:57 of 2) [code = SHINGLES VACCINES (1 of 2)] Future Scheduled 2022-03-04 BREAST CANCER [facility] Test 14:03:57 SCREENING [code = BREAST CANCER SCREENING] Future Scheduled 2022-03-04 COLONOSCOPY SCREENING [facility] Test 14:03:57 [code = COLONOSCOPY SCREENING] Future Scheduled 2022-03-04 HEPATITIS B VACCINES [facility] Test 14:03:57 (1 of 3 - Risk 3-dose series) [code = HEPATITIS B VACCINES (1 of 3 - Risk 3-dose series)] Future Scheduled 2022-03-04 COVID-19 VACCINE (3 - [facility] Test 14:03:57 Booster for Pfizer series) [code = COVID-19 VACCINE (3 - Booster for Pfizer series)] Future Scheduled 2022-03-04 65+ PNEUMOCOCCAL [facility] Test 14:03:57 VACCINE (4 - PPSV23 if available, else PCV20) [code = 65+ PNEUMOCOCCAL VACCINE (4 - PPSV23 if available, else PCV20)] Future Scheduled 2022-03-04 INFLUENZA VACCINE Method [facility] Test 14:03:57 [code = INFLUENZA VACCINE] Future Scheduled 2022-02-11 SHINGLES VACCINES (1 Met [facility] Test 13:39:12 of 2) [code = SHINGLES VACCINES (1 of 2)] Future Scheduled 2022-02-11 BREAST CANCER [facility] Test 13:39:12 SCREENING [code = BREAST CANCER SCREENING] Future Scheduled 2022-02-11 [facility] [facility] 13:39:12 [code = COLONOSCOPY SCREENING] Future Scheduled 2022-02-11 HEPATITIS B VACCINES [facility] Test 13:39:12 (1 of 3 - Risk 3-dose series) [code = HEPATITIS B VACCINES (1 of 3 - Risk 3-dose series)] Future Scheduled 2022-02-11 COVID-19 VACCINE (3 - [facility] Test 13:39:12 Booster for Pfizer series) [code = COVID-19 VACCINE (3 - Booster for Pfizer series)] Future Scheduled 2022-02-11 65+ P[facility]UMOCOCCAL [facility] Test 13:39:12 VACCINE (4 - PPSV23 or PCV20) [code = 65+ PNEUMOCOCCAL VACCINE (4 - PPSV23 or PCV20)] Future Scheduled 2022-02-11 INFLUENZA VACCINE Method [facility] Test 13:39:12 [code = INFLUENZA VACCINE] Future Scheduled 2022-01-29 SHINGLES VACCINES (1 [facility] Test 14:07:20 of 2) [code = SHINGLES VACCINES (1 of 2)] Future Scheduled 2022-01-29 BREAST CANCER [facility] Test 14:07:20 SCREENING [code = BREAST CANCER SCREENING] Future Scheduled 2022-01-29 COLONOSCOPY SCREENING [facility] Test 14:07:20 [code = COLONOSCOPY SCREENING] Future Scheduled 2022-01-29 HEPATITIS B VACCINES [facility] Test 14:07:20 (1 of 3 - Risk 3-dose series) [code = HEPATITIS B VACCINES (1 of 3 - Risk 3-dose series)] Future Scheduled 2022-01-29 COVID-19 VACCINE (3 - [facility] Test 14:07:20 Booster for Pfizer series) [code = COVID-19 VACCINE (3 - Booster for Pfizer series)] Future Scheduled 2022-01-29 65+ PNEUMOCOCCAL [facility] Test 14:07:20 VACCINE (4 - PPSV23 or PCV20) [code = 65+ PNEUMOCOCCAL VACCINE (4 - PPSV23 or PCV20)] Future Scheduled 2022-01-29 INFLUENZA VACCINE Method [facility] Test 14:07:20 [code = INFLUENZA VACCINE] Future Scheduled 2022-01-29 SHINGLES VACCINES (1 [facility] Test 14:07:20 of 2) [code = SHINGLES VACCINES (1 of 2)] Future Scheduled 2022-01-29 BREAST CANCER [facility] Test 14:07:20 SCREENING [code = BREAST CANCER SCREENING] Future Scheduled 2022-01-29 COLONOSCOPY SCREENING [facility] Test 14:07:20 [code = COLONOSCOPY SCREENING] Future Scheduled 2022-01-29 HEPATITIS B VACCINES [facility] Test 14:07:20 (1 of 3 - Risk 3-dose series) [code = HEPATITIS B VACCINES (1 of 3 - Risk 3-dose series)] Future Scheduled 2022-01-29 COVID-19 VACCINE (3 - [facility] Test 14:07:20 Booster for Pfizer series) [code = COVID-19 VACCINE (3 - Booster for Pfizer series)] Future Scheduled 2022-01-29 65+ PNEUMOCOCCAL [facility] Test 14:07:20 VACCINE (4 - PPSV23 or PCV20) [code = 65+ PNEUMOCOCCAL VACCINE (4 - PPSV23 or PCV20)] Future Scheduled 2022-01-29 INFLUENZA VACCINE Method [facility] Test 14:07:20 [code = INFLUENZA VACCINE] Future Scheduled 2022-01-29 SHINGLES VACCINES (1 [facility] Test 14:07:20 of 2) [code = SHINGLES VACCINES (1 of 2)] Future Scheduled 2022-01-29 BREAST CANCER [facility] Test 14:07:20 SCREENING [code = BREAST CANCER SCREENING] Future Scheduled 2022-01-29 COLONOSCOPY SCREENING [facility] Test 14:07:20 [code = COLONOSCOPY SCREENING] Future Scheduled 2022-01-29 HEPATITIS B VACCINES [facility] Test 14:07:20 (1 of 3 - Risk 3-dose series) [code = HEPATITIS B VACCINES (1 of 3 - Risk 3-dose series)] Future Scheduled 2022-01-29 COVID-19 VACCINE (3 - [facility] Test 14:07:20 Booster for Pfizer series) [code = COVID-19 VACCINE (3 - Booster for Pfizer series)] Future Scheduled 2022-01-29 65+ PNEUMOCOCCAL [facility] Test 14:07:20 VACCINE (4 - PPSV23 or PCV20) [code = 65+ PNEUMOCOCCAL VACCINE (4 - PPSV23 or PCV20)] Future Scheduled 2022-01-29 INFLUENZA VACCINE Method [facility] Test 14:07:20 [code = INFLUENZA VACCINE] Future Scheduled 2022-01-29 SHINGLES VACCINES (1 [facility] Test 14:07:20 of 2) [code = SHINGLES VACCINES (1 of 2)] Future Scheduled 2022-01-29 BREAST CANCER [facility] Test 14:07:20 SCREENING [code = BREAST CANCER SCREENING] Future Scheduled 2022-01-29 COLONOSCOPY SCREENING [facility] Test 14:07:20 [code = COLONOSCOPY SCREENING] Future Scheduled 2022-01-29 HEPATITIS B VACCINES [facility] Test 14:07:20 (1 of 3 - Risk 3-dose series) [code = HEPATITIS B VACCINES (1 of 3 - Risk 3-dose series)] Future Scheduled 2022-01-29 COVID-19 VACCINE (3 - [facility] Test 14:07:20 Booster for Pfizer series) [code = COVID-19 VACCINE (3 - Booster for Pfizer series)] Future Scheduled 2022-01-29 65+ PNEUMOCOCCAL [facility] Test 14:07:20 VACCINE (4 - PPSV23 or PCV20) [code = 65+ PNEUMOCOCCAL VACCINE (4 - PPSV23 or PCV20)] Future Scheduled 2022-01-29 INFLUENZA VACCINE Method [facility] Test 14:07:20 [code = INFLUENZA VACCINE] Future Scheduled 2022-01-20 SHINGLES VACCINES (1 [facility] Test 06:12:34 of 2) [code = SHINGLES VACCINES (1 of 2)] Future Scheduled 2022-01-20 Screening for [facility] Test 06:12:34 malignant neoplasm of cervix (procedure) [code = 762337677] Future Scheduled 2022-01-20 BREAST CANCER [facility] Test 06:12:34 SCREENING [code = BREAST CANCER SCREENING] Future Scheduled 2022-01-20 COLONOSCOPY SCREENING [facility] Test 06:12:34 [code = COLONOSCOPY SCREENING] Future Scheduled 2022-01-20 HEPATITIS B VACCINES [facility] Test 06:12:34 (1 of 3 - Risk 3-dose series) [code = HEPATITIS B VACCINES (1 of 3 - Risk 3-dose series)] Future Scheduled 2022-01-20 COVID-19 VACCINE (3 - [facility] Test 06:12:34 Booster for Pfizer series) [code = COVID-19 VACCINE (3 - Booster for Pfizer series)] Future Scheduled 2022-01-20 65+ PNEUMOCOCCAL [facility] Test 06:12:34 VACCINE (4 - PPSV23 or PCV20) [code = 65+ PNEUMOCOCCAL VACCINE (4 - PPSV23 or PCV20)] Future Scheduled 2022-01-20 INFLUENZA VACCINE Method [facility] Test 06:12:34 [code = INFLUENZA VACCINE] Future Scheduled 2022-01-16 SHINGLES VACCINES (1 [facility] Test 12:09:25 of 2) [code = SHINGLES VACCINES (1 of 2)] Future Scheduled 2022-01-16 Screening for [facility] Test 12:09:25 malignant neoplasm of cervix (procedure) [code = [id number]] Future Scheduled 2022-01-16 BREAST CANCER [facility] Test 12:09:25 SCREENING [code = BREAST CANCER SCREENING] Future Scheduled 2022-01-16 COLONOSCOPY SCREENING [facility] Test 12:09:25 [code = COLONOSCOPY SCREENING] Future Scheduled 2022-01-16 HEPATITIS B VACCINES [facility] Test 12:09:25 (1 of 3 - Risk 3-dose series) [code = HEPATITIS B VACCINES (1 of 3 - Risk 3-dose series)] Future Scheduled 2022-01-16 COVID-19 VACCINE (3 - [facility] Test 12:09:25 Booster for Pfizer series) [code = COVID-19 VACCINE (3 - Booster for Pfizer series)] Future Scheduled 2022-01-16 65+ PNEUMOCOCCAL [facility] Test 12:09:25 VACCINE (4 - PPSV23 or PCV20) [code = 65+ PNEUMOCOCCAL VACCINE (4 - PPSV23 or PCV20)] Future Scheduled 2022-01-16 INFLUENZA VACCINE Method [facility] Test 12:09:25 [code = INFLUENZA VACCINE] Future Scheduled 2022-01-14 SHINGLES VACCINES (1 [facility] Test 04:11:46 of 2) [code = SHINGLES VACCINES (1 of 2)] Future Scheduled 2022-01-14 Screening for [facility] Test 04:11:46 malignant neoplasm of cervix (procedure) [code = [id number]] Future Scheduled 2022-01-14 BREAST CANCER [facility] Test 04:11:46 SCREENING [code = BREAST CANCER SCREENING] Future Scheduled 2022-01-14 COLONOSCOPY SCREENING [facility] Test 04:11:46 [code = COLONOSCOPY SCREENING] Future Scheduled 2022-01-14 HEPATITIS B VACCINES [facility] Test 04:11:46 (1 of 3 - Risk 3-dose series) [code = HEPATITIS B VACCINES (1 of 3 - Risk 3-dose series)] Future Scheduled 2022-01-14 COVID-19 VACCINE (3 - [facility] Test 04:11:46 Booster for Pfizer series) [code = COVID-19 VACCINE (3 - Booster for Pfizer series)] Future Scheduled 2022-01-14 65+ PNEUMOCOCCAL [facility] Test 04:11:46 VACCINE (4 - PPSV23 or PCV20) [code = 65+ PNEUMOCOCCAL VACCINE (4 - PPSV23 or PCV20)] Future Scheduled 2022-01-14 INFLUENZA VACCINE Method [facility] Test 04:11:46 [code = INFLUENZA VACCINE] Future Scheduled 2021-08-26 Screening for [facility] Test 13:02:23 malignant neoplasm of cervix (procedure) [code = [id number]] Future Scheduled 2021-08-26 BREAST CANCER [facility] Test 13:02:23 SCREENING [code = BREAST CANCER SCREENING] Future Scheduled 2021-08-26 COLONOSCOPY SCREENING [facility] Test 13:02:23 [code = COLONOSCOPY SCREENING] Future Scheduled 2021-08-26 Screening for [facility] Test 13:02:23 malignant neoplasm of lung (procedure) [code = 028500685] Future Scheduled 2021-08-26 SHINGLES VACCINES (#1) [facility] Test 13:02:23 [code = SHINGLES VACCINES (#1)] [...] PPSV23)] Future Scheduled 2021-08-26 INFLUENZA VACCINE [facility] Test 13:02:23 [code = INFLUENZA VACCINE] Encounters Start End Encounter Admission Attending Care Care Encounter Source Date/Time Date/Time Type Type Clinicians Facility Department ID 2022-02-18 Outpatient CHW SHAHEENW [id number] [place] 14:30:[address] [place] [address] 2021-07-14 Outpatient SADIKOVIC, [facility] [id number] [place] 09:33:51 [facility] 2021-06-02 Outpatient HEMATPOUR, [facility] [id number] [place] 13:58:59 [facility] 2021-04-28 Outpatient HEMATPOUR, [facility] [id number] [place] 11:21:22 [facility] 2021-03-20 Emergency [facility] [id number] Univers 16:07:40 [facility] 2020-12-12 Outpatient HEMATPOUR, [facility] [id number] [place] 08:16:46 BEVERLY Laird 2020-10-31 Outpatient HEMATPOUR, [facility] [id number] [place] 09:44:50 BEVERLY Laird 2020-09-30 Outpatient HEMATPOUR, [facility] [id number] [place] 13:16:03 BEVERLY Laird 2022-05-20 2022-05-20 Telephone [facility] 1.2.840.114 [id number] Univers 00:00:00 00:00:00 [facility] 350.1.13.10 i [place] [id number] [address] 2022-05-10 2022-05-10 Emergency [facility] [id number] Univers 10:30:00 16:31:[address] [facility] 2022-05-10 2022-05-10 Emergency [place], [place] 1.2.840.114 [id number] Univers 10:30:00 16:31:00 Home [place] 350.1.13.10 [place] [id number] [address] 2022-05-10 2022-05-10 Telephone [facility] 1.2.840.114 [id number] Univers 00:00:00 00:00:00 [facility] 350.1.13.10 i [place] [id number] [address] 2022-05-08 2022-05-08 Emergency [facility] [id number] Univers 16:18:00 18:42:[address] [facility] 2022-05-08 2022-05-08 [facility] 1.2.840.114 [id number] Univers 16:18:00 18:42:00 Theresa BULLOCK 350.1.13.10 ity [facility] 4.[place] [id number] [address] 2022-05-07 2022-05-07 Telephone [facility] 1.2.840.114 [id number] Univers 00:00:00 00:00:00 [facility] 350.1.13.10 i [place] [id number] [address] 2022-05-06 2022-05-06 Emergency [facility] [id number] Univers 14:13:00 18:19:00 ANETTE [facility] 2022-05-06 2022-05-06 Emergency [facility] 1.2.387.175 [id number] Univers 14:13:00 18:19:00 Anette BULLOCK 350.1.13.10 ity [facility] 4.2.7.2.686 [facility] [id number] [address] 2022-05-06 2022-05-06 Telephone [facility] 1.2.840.114 [id number] Univers 00:00:00 00:00:00 [facility] 350.1.13.10 i [place] [id number] [address] 2022-04-22 2022-04-22 Emergency [facility] [id number] Univers 13:55:00 17:00:00 PAULETTE [facility] 2022-04-22 2022-04-22 [facility] 1.2.914.631 [id number] Univers 13:55:00 17:00:00 Paulette BULLOCK 350.1.13.10 i ty of [place] 4.2.7.2.686 [facility] [id number] [address] 2022-04-07 2022-04-07 Outpatient R ADRIAN, [facility] [id number] Univers 20:40:00 20:40:00 [facility] 2022-04-07 2022-04-07 Telephone Devin, 1.2.840.5 [id number] Univers 00:00:00 00:00:00 Robbi Hairston 73095.1.1 i ty of 3.104.2.7 [place] .3.845197 Medica l .8 Branch 2022-03-05 2022-03-05 Manager Finance Santiago Cardenas 1.2.840.1 [id number] Univers 13:45:00 14:00:00 Visit [facility] 94019.1.1 ity of 3.104.2.7 [place] .3.895464 Medica l .8 [place] 2022-03-05 2022-03-05 Office Ronald [facility] 1.2.765.569 [id number] Univers 13:00:00 13:30:00 Visit Santiago [facility] 350.1.13.10 i ty of CLINICS 4.2.7.2.686 Yomialeshia isreal [id number] [facility] porfirio 089 [place] 2022-03-05 2022-03-05 Outpatient [facility] [id number] Univers 13:00:00 13:00:00 [facility] 2022-02-26 2022-02-26 Outpatient [facility] [id number] Univers 08:30:00 08:30:00 [facility] 2022-02-26 2022-02-26 Outpatient [facility] [id number] Univers 08:30:00 08:30:00 [facility] 2022-02-17 2022-02-17 Transition Stevo, 1.2.840.4 [id number] Univers 00:00:00 00:00:00 of Care Isaias Arredondo 84332.1.1 it y of 3.104.2.7 [place] .3.303178 Medica l .8 [place] 2022-02-10 2022-02-16 Inpatient X FRANK [facility] FAVIO [id number] Univers 22:59:00 19:27:[address] [facility] 2022-02-10 2022-02-16 Hospital Reilly Means 1.2.840.1 [id number] Univers 22:59:00 19:27:00 Encounter Ofe Shields 88790.1.1 ity of [place] 3.104.2.7 [place] .3.096018 Medica l .8 Branch 2022-02-11 2022-02-11 Telephone East, 1.2.840.2 [id number] Univers 00:00:00 00:00:00 Santiago 93403.1.1 ity of 3.104.2.7 [place] .3.505326 Medica l .8 Branch 2022-02-10 2022-02-10 Travel 1.2.840.1 1.2.822.044 [id number] Univers 00:00:00 00:00:00 62688.1.1 350.1.13.10 ity of 3.104.2.7 4.[place].7.3.698 [place] .3.503690 084.8 Medica l .8 Branch 2022-01-30 2022-01-30 Telephone [place], 1.2.840.2 [id number] Univers 00:00:00 00:00:00 Santiago 42698.1.1 ity of 3.104.2.7 [place] .3.988833 Medica l .8 Branch 2022-01-06 2022-01-06 Orders Doctor FERMIN 1.2.840.114 [id number] Univers 00:00:00 00:00:00 Only Unassigned, JACKELINE 350.1.13.10 ity of [place] [facility] 4.2.7.2.686 Yomi as [id number] [address] 2021-12-25 2021-12-25 Orders Doctor FERMIN 1.2.840.114 [id number] Univers 00:00:00 00:00:00 Only Unassigned, JACKELINE 350.1.13.10 ity of [place] [facility] 4.2.7.2.686 Yomi as [id number] [address] 2021-12-12 2021-12-13 Emergency X Bill COLES [facility] ERT [id number] Univers 23:53:00 01:52:00 ity of [facility] 2021-12-12 2021-12-13 Emergency Bill Coles [facility] 1.2.840.114 [id number] Univers 23:53:00 01:52:00 Kiersten BULLOCK 350.1.13.10 i ty of [place]2.7.[place] [id number] [facility] 084 Branch 2021-11-20 2021-11-20 Manager Finance [facility] UNIVERSIT 1.2.840.114 [id number] Univers 09:45:00 10:00:00 Visit Santiago Cardenas [facility] 350.1.13.10 ity of CL[place] 4[place] [id number] [facility] 316 Branch 2021-11-20 2021-11-20 Office [facility] 1.2.080.572 [id number] Univers 08:30:00 09:00:00 Visit [facility] 350.1.13.10 i ty of [facility] 4.2.7.2.[place] [id number] [facility] 089 Branch 2021-11-20 2021-11-20 Outpatient [facility] [id number] Univers 08:30:00 08:30:00 [facility] 2021-11-20 2021-11-20 Outpatient R [facility] [id number] Univers 08:30:00 08:30:00 [facility] 2021-11-20 2021-11-20 Outpatient R [facility] [id number] Univers 08:30:00 08:30:00 [facility] 2021-11-20 2021-11-20 Outpatient R [facility] [id number] Univers 08:30:00 08:30:00 [facility] 2021-10-24 2021-10-24 Emergency X WALKER, [facility] ERT [id number] Univers 16:27:00 22:26:00 [facility] 2021-10-24 2021-10-24 Emergency X WALKER, [facility] ERT [id number] Univers 16:27:00 [facility]:26[facility] 2021-10[facility] 2021-10-24 Emergency Reilly Means [facility] 1.2.840. 114 [id number] Univers 16:27:00 22:26:00 [facility] 350.1.13.10 ity [facility] 4.2.7.2.686 [facility] [id number] [address] 2021-10-23 2021-10-24 Emergency X [facility] ERT [id number] Univers 20:22:00 02:57[facility]00 [facility] 2021-10-23 2021-10-24 Emergency [facility] 1.2.183.825 [id number] Univers 20:22:00 02:57:00 Krishna Isreal [place] 350.1.13.10 ity of [place] 4.2.7.2.686 [facility] [id number] [address] 2021-09-07 2021-09-07 Outpatient R SELF, [facility] [id number] Univers 08:00:00 08:00:00 GADIEL familia lela [facility] 2021-09-07 2021-09-07 Outpatient R SELF, [facility] [id number] Univers 08:00:00 08:00:00 GADIEL vogel [facility] 2021-08-21 2021-08-21 Outpatient [facility] [id number] Univers 10:45:00 10:45:[address] [facility] 2021-08-21 2021-08-21 Manager Finance Santiago Cardenas 1.2.840.1 [id number] Univers 10:45:00 10:45:00 Visit [facility] 24254.1.1 ity of 3.104.2.7 [place] .3.415270 Medica l .8 [place] 2021-08-21 2021-08-21 Office Ronald, 1.2.840.0 [id number] Univers 08:30:00 09:00:00 Visit Santiago 98722.1.1 ity of 3.104.2.7 [place] .3.378678 Medica l .8 [place] 2021-08-21 2021-08-21 Office East, [facility] 1.2.442.179 [id number] Univers 08:30:00 09:00:00 Visit [facility] 350.1.13.10 i ty of CLINICS 4.2.7.2.686 [place] [id number] [facility] 089 [place] 2021-08-21 2021-08-21 Outpatient [facility] [id number] Univers 08:30:00 08:30:00 [facility] 2021-08-21 2021-08-21 Travel 1.2.840.1 1.2.015.304 [id number] Univers 00:00:00 00:00:00 39805.1.1 350.1.13.10 ity of 3.104.2.7 4.[place].7.3.698 [place] .3.172114 084.8 Medica l .8 [place] 2021-08-14 2021-08-14 Telephone East, 1.2.840.8 [id number] Univers 00:00:00 00:00:00 Santiago 82732.1.1 ity of 3.104.2.7 [place] .3.546905 Medica l .8 [place] 2021-08-13 2021-08-13 Telephone [place], 1.2.840.2 [id number] Univers 00:00:00 00:00:00 Santiago 51968.1.1 ity of 3.104.2.7 [place] .3.174705 Medica l .8 [place] 2021-08-11 2021-08-11 Outpatient [facility] [id number] Univers 08:00:00 08:00:00 [facility] 2021-08-05 2021-08-05 Inpatient RAUL Lund, EDUARDO OUTD [id number] [facility] 05:24:00 05:24:00 Mike 31 [facility] 2021-07-20 2021-07-20 Outpatient [facility] [id number] Univers 10:00:00 10:00:00 [facility] 2021-07-14 2021-07-14 Office KIMBERLEY Lira 6400 1.2.840.114 [id number] [place] 08:45:00 09:34:[address] 350.1.13.58 Health 9.2.7.2.686 [id number] 1 2021-07-09 2021-07-09 Telephone Maryjaneporay, UTP 6400 1.2.840.114 [id number] [place] 00:00:00 00:00:[address] 350.1.13.58 Health 9.2.7.2.686 [id number] 1 2021-07-09 2021-07-09 Telephone Hematpour, UTP 6400 1.2.840.114 [id number] [place] 00:00:00 00:00:[address] 350.1.13.58 Health 9.2.7.2.686 [id number] 1 2021-07-03 2021-07-03 Outpatient R EAST, [facility] [id number] Univers 08:00:00 08:00:[address] [facility] 2021-06-17 2021-06-17 Inpatient Ashely, HCACL INTE.02 [id number] [facility] 10:56:00 14:36:00 Mike 47 [facility] 2021-06-15 2021-06-15 Outpatient R SELF, [facility] [id number] Univers 10:15:00 11:07:21 GADIEL vogel [facility] 2021-06-15 2021-06-15 Outpatient R SELF, [facility] [id number] Univers 10:15:00 10:15:00 GADIEL barbosa o [facility] 2021-06-15 2021-06-15 Outpatient R SELF, [facility] [id number] Univers 10:15:00 10:15:00 GADIEL barbosa o [facility] 2021-06-15 2021-06-15 Orders Doctor 1.2.840.2 [id number] Univers 00:00:00 00:00:00 Only Unassigned, 53453.1.1 ity of [place] 3.104.2.7 [place] .3.757079 [place] [address] Branch 2021-06-15 2021-06-15 Travel 1.2.840.1 1.2.319.883 [id number] Univers 00:00:00 00:00:00 57564.1.1 350.1.13.10 ity of 3.104.2.7 4[place].3.698 [place] .3.266746 084.8 Medica l .8 [place] 2021-06-11 2021-06-11 [facility].777 [id number] Univers 00:00:00 00:00:00 [facility] 350.1.13.10 i ty of [place] [id number] [facility] 089 [place] 2021-06-11 2021-06-11 [address] [facility], 1.2.840.9 [id number] Univers 00:00:00 00:00:00 [place] 30517.1.1 ity of 3.104.2.7 [place] .3.657972 Medica l .8 [place] 2021-06-05 2021-06-05 [facility] [id number] Univers 09:00:00 09:00:00 [place] ity of [facility] 2021-06-02 2021-06-02 [facility] 1.2.840.114 [id number] Univers 00:00:00 00:00:00 [facility] 350.1.13.10 i ty of [place] 4[place] [id number] [place] [id number] [place] 2021-06-02 2021-06-02 Telephone [facility], 1.2.840.7 [id number] Univers 00:00:00 00:00:00 [place] 58458.1.1 ity of 3.104.2.7 [place] .3.380870 Medica l .8 [place] 2021-05-29 2021-05-29 Telephone [facility], 1.2.840.4 [id number] Univers 00:00:00 00:00:00 [place] 85032.1.1 ity of 3.104.2.7 [place] .3.358130 Medica l .8 [place] 2021-05-29 2021-05-29 Telephone [place], 1.2.840.3 [id number] Univers 00:00:00 00:00:00 [place] 38611.1.1 [facility] 3.104.2.7 [facility].734438 Medica l .8 [place] 2021-05-25 2021-05-25 Outpatient R RODO, [facility] [place] [id number] Univers 08:00:00 08:00:00 GADIEL barbosa o [facility] 2021-04-29 2021-04-29 Outpatient R LALA, [facility] [id number] Univers 08:00:00 08:00:[address] [facility] 2021-04-28 2021-04-28 Telephone Maryjanejuniray, [facility] 6400 1.2.840.114 [id number] [place] 00:00:00 00:00:[address] 350.1.13.58 Health 9.2.7.2.686 [id number] 1 2021-04-28 2021-04-28 Telephone Jeredimasaleshia, 1.2.840.0 [id number] 21 [id number] Methodi 00:00:00 00:00:[address] 3.430.2.7 Hospit a .3.716612 l .8 2021-03-31 2021-03-31 Orders Carol Ann, 1.2.840.1 [id number] 21 [id number] Methodi 00:00:00 00:00:00 Only Sarai Lieberman 45544.1.1 979 s t 3.430.2.7 Hospit a .3.411830 l .8 2021-03-30 2021-03-30 Outpatient R SELF, [facility] [id number] Univers 08:45:00 08:45:00 GADIEL vogel clark [facility] 2021-03-24 2021-03-24 Telephone Jerehara, 1.2.840.6 [id number] 21 [id number] Methodi 00:00:00 00:00:[address] 3.430.2.7 Hospit a .3.186860 l .8 2021-02-13 2021-02-13 Telephone Ronald, 1.2.840.5 [id number] 876 52748 Univers 00:00:00 00:00:00 Santiago 82606.1.1 ity of 3.104.2.7 [place] .3.851575 Medica l .8 Branch 2021-01-28 2021-01-28 Laure REEVES [facility] [place] [id number] Univers 08:45:00 09:37:00 NIKOLAI ity of [facility] 2021-01-28 2021-01-28 Travel 1.2.840.1 1.2.916.831 0192 9777 Univers 00:00:00 00:00:00 25324.1.1 350.1.13.10 ity of 3.104.2.7 [place].3.698 [place] .[place].396509 084.8 Medica l .8 Branch 2021-01-19 2021-01-19 Telephone Pelletier, 1.2.840.1 [id number] 2100 354045 Method 00:00:00 00:00:[address] 3.430.2.7 Hospit a .3.726895 l .8 2021-01-04 2021-01-04 Dmitry Bass, 1.2.840.6 [id number] 60121 696 Univers 00:00:00 00:00:00 (Out) Dagoberto H 50612.1.1 ity of 3.104.2.7 [place] .3.732577 Medica l .8 Branch 2021-01-04 2021-01-04 Dmitry Bass, 1.2.840.0 [id number] 49642 696 Univers 00:00:00 00:00:00 (Out) Dagoberto H 33478.1.1 ity of 3.104.2.7 [place] .3.940013 Medica l .8 Branch 2021-01-03 2021-01-03 Dmitry Bass, 1.2.840.7 [id number] 04710 790 Univers 00:00:00 00:00:00 (Out) Dagoberto H 84605.1.1 ity of 3.104.2.7 [place] .3.996680 Medica l .8 [place] 2021-01-03 2021-01-03 Letter Shelia, 1.2.840.9 [id number] 55208 790 Univers 00:00:00 00:00:00 (Out) Dagoberto H 08929.1.1 ity of 3.104.2.7 [place] .3.969482 Medica l .8 [place] 2021-01-02 2021-01-02 Outpatient R [facility] [place] [id number] 786 Univers 13:40:00 13:40:00 ity of [facility] 2021-01-02 2021-01-02 Laboratory Cuba Franks 1.2.840.0 [id number] [id number] Univers 12:14:13 12:57:34 Only Lab, [facility] [place] 37137.1.1 ity of 3.104.2.7 [place] .3.336759 Medica l .8 [place] 2021-01-02 2021-01-02 Laboratory Cuba Franks 1.2.840.1 766251 4577 [id number] Univers 12:14:13 12:57:34 Only Lab, [facility] Pob I 63535.1.1 ity of 3.104.2.7 [place] .3.671496 Medica l .8 [place] 2021-01-02 2021-01-02 Travel 1.2.840.1 1.2.807.690 0435 2306 Univers 00:00:00 00:00:00 08319.1.1 350.1.13.10 ity of 3.104.2.7 4.[place]7.3.698 [place] .3.801962 084.8 Medica l .8 [place] 2021-01-02 2021-01-02 Letter Doctor 1.2.840.5 [id number] 17634 948 Univers 00:00:00 00:00:00 (Out) Unassigned, 42511.1.1 ity of [place] 3.104.2.7 [place] .3.468694 Medica l .8 [place] 2021-01-02 2021-01-02 Letter Doctor 1.2.840.3 [id number] 43339 946 Univers 00:00:00 00:00:00 (Out) Unassigned, 22205.1.1 ity of [place] 3.104.2.7 [place] .3.540304 Medica l .8 [place] 2021-01-02 2021-01-02 Travel 1.2.840.1 1.2.015.018 7003 2306 Univers 00:00:00 00:00:00 18389.1.1 350.1.13.10 ity of 3.104.2.7 4.2.7.3.698 [place] .3.936846 084.8 Medica l .8 [place] 2021-01-02 2021-01-02 Letter Doctor 1.2.840.1 [id number] 53172 948 Univers 00:00:00 00:00:00 (Out) Unassigned, 47858.1.1 ity of [place] 3.104.2.7 [place] .3.900043 Medica l .8 [place] 2021-01-02 2021-01-02 Letter Doctor 1.2.840.4 [id number] 14544 946 Univers 00:00:00 00:00:00 (Out) Unassigned, 37621.1.1 ity of [place] 3.104.2.7 [place] .3.909353 Medica l .8 [place] 2020-12-22 2020-12-22 Telephone Beltran, 1.2.840.6 [id number] 862 68546 Univers 00:00:00 00:00:00 Devina R 82477.1.1 i ty of 3.104.2.7 [place] .3.301223 Medica l .8 [place] 2020-12-22 2020-12-22 Telephone Beltran, 1.2.840.8 [id number] 862 55625 Univers 00:00:00 00:00:00 Eligionda R 54170.1.1 i ty of 3.104.2.7 [place] .3.397822 Medica l .8 [place] 2020-12-12 2020-12-12 Office Hematpour, UTP 6400 1.2.840.114 12 [id number] [place] 07:42:02 08:18:[address] 350.1.13.58 Health 9.2.7.2.686 [id number] 1 2020-12-12 2020-12-12 Office Hematpour, UTP 6400 1.2.840.114 12 [id number] 07:42:02 08:18:[address] 350.1.13.58 9.2.7.2.686 [id number] 1 2020-12-09 2020-12-09 Telephone [facility], 1.2.840.1 [id number] Methodi 00:00:00 00:00:00 Sarai Lieberman 64013.1.1 316 s t 3.430.2.7 Hospit a .3.624508 l .8 2020-12-08 2020-12-08 [facility], 1.2.840.1 [id number] 2100 371041 Methodi 12:35:54 23:59:00 Encounter Ray 41779.1.[address] 3.430.2.7 Hospit a .3.970010 l .8 2020-12-08 2020-12-08 [facility], 1.2.840.1 [id number] 72231 11201 Methodi 17:25:00 17:30:[address] 3.430.2.7 Hospit a .3.580225 l .8 2020-12-08 2020-12-08 [facility], 1.2.840.1 [id number] 34147 11230 Methodi 10:30:00 11:39:56 Visit Ray 33500.1.[address] 3.430.2.7 Hospit a .3.191907 l .8 2020-12-08 2020-12-08 Travel 1.2.840.1 1.2.168.625 6000 712297 Methodi 00:00:00 00:00:[address] 3.430.2.7 0.2.7.3.698 Ho spita .3.417533 084.8 l .8 2020-12-02 2020-12-02 Manager Finance Santiago Cardenas 1.2.840.1 [id number] Univers 10:20:06 10:36:19 Visit [facility] 27903.1.1 ity of 3.104.2.7 [place] .3.079986 Medica l .8 Branch 2020-12-02 2020-12-02 Manager Finance Santiago Cardenas 1.2.840.1 [id number] [facility] 10:20:06 10:36:19 Visit [facility] 66650.1.1 ity of 3.104.2.7 [place] .3.934105 Medica l .8 Branch 2020-12-02 2020-12-02 Manager Finance [facility] UNIVERSIT 1.2.840.114 8 [id number] 10:20:06 10:36:19 Visit [facility] 350.1.13.10 CLINICS 4.2.7.2.686 [id number] 316 2020-12-02 2020-12-02 Office Ronald, 1.2.840.0 [id number] 56130 528 Univers 08:31:37 09:01:37 Visit Santiago 11836.1.1 ity of 3.104.2.7 [place] .3.960257 Medica l .8 [place] 2020-12-02 2020-12-02 [facility] [id number] Univers 09:00:00 09:00:00 SANTIAGO ity of [facility] 2020-11-25 2020-11-25 Office Devin, 1.2.840.6 [id number] 27915 865 Univers 11:06:30 11:58:14 Visit Robbi Hairston 60770.1.1 i ty of 3.104.2.7 [place] .3.313208 Medica l .8 Branch 2020-11-25 2020-11-25 Office Devin, 1.2.840.1 [id number] 81127 865 Univers 11:06:30 11:58:14 Visit Robbi Hairston 81678.1.1 i ty of 3.104.2.7 [place] .3.926236 Medica l .8 [place] 2020-11-25 2020-11-25 Office Beltran [facility] 1.2.840.114 [id number] 11:06:30 11:58:14 Visit Robbi Hairston GENERATOR WORKER 350.1.13.10 REGIONAL 4.2.7.2.686 MATERNAL [id number] & CHILD [address] [place] [address] 2020-11-25 2020-11-25 Outpatient R [facility] [place] [id number] Univers 11:00:00 11:00:00 ity of [facility] 2020-11-25 2020-11-25 Telephone Devin 1.2.840.4 [id number] 855 [id number] Univers 00:00:00 00:00:00 Robbi Hairston 22387.1.1 i ty of 3.104.2.7 [place] .3.337351 Medica l .8 [place] 2020-11-25 2020-11-25 Refill East, 1.2.840.2 [id number] 57802 592 Univers 00:00:00 00:00:00 Santiago 24782.1.1 ity of 3.104.2.7 [place] .3.311404 Medica l .8 [place] 2020-11-25 2020-11-25 Travel 1.2.840.1 1.2.105.277 0949 0247 Univers 00:00:00 00:00:00 79484.1.1 350.1.13.10 ity of 3.104.2.7 4.2.7.3.698 [place] .3.736631 084.8 Medica l .8 [place] 2020-11-25 2020-11-25 Orders Doctor 1.2.840.4 [id number] 13130 064 Univers 00:00:00 00:00:00 Only Unassigned, 29301.1.1 ity of [place] 3.104.2.7 [place] .3.115834 Medica l .8 [place] 2020-11-25 2020-11-25 Telephone Beltran, 1.2.840.8 [id number] 855 31562 Univers 00:00:00 00:00:00 Robbi R 14359.1.1 i ty of 3.104.2.7 [place] .3.416984 Medica l .8 Branch 2020-11-25 2020-11-25 Refill East, 1.2.840.2 [id number] 74601 592 Univers 00:00:00 00:00:00 Santiago 76464.1.1 ity of 3.104.2.7 [place] .3.857363 Medica l .8 Branch 2020-11-25 2020-11-25 Travel 1.2.840.1 1.2.437.270 7096 0247 Univers 00:00:00 00:00:00 36401.1.1 350.1.13.10 ity of 3.104.2.7 4.2.7.3.698 [place] .3.015255 084.8 Medica l .8 [place] 2020-11-25 2020-11-25 Orders Doctor 1.2.840.2 [id number] 99619 064 Univers 00:00:00 00:00:00 Only Unassigned, 00952.1.1 ity of [place] 3.104.2.7 [place] .3.177739 Medica l .8 [place] 2020-11-25 2020-11-25 [facility] 1.2.123.807 0460 4592 00:00:00 00:00:00 [facility] 350.1.13.10 CLINICS 4.2.7.2.686 [id number] 089 2020-11-25 2020-11-25 Telephone [facility] 1.2.850.639 0127 0821 00:00:00 00:00:00 Robbi Hairston GENERATOR WORKER 350.1.13.10 REGIONAL 4.2.7.2.686 MATERNAL [id number] & CHILD [address] [place] [address] 2020-11-14 2020-11-14 Abstract Clark, 1.2.840.1 [id number] 27046 24113 Methodi 00:00:00 00:00:[address] 3.430.2.7 Hospit a .3.450835 l .8 2020-11-14 2020-11-14 Telephone Clark, 1.2.840.1 [id number] 2100 825581 Method 00:00:00 00:00:[address] 3.430.2.7 Hospit a .3.774932 l .8 2020-11-12 2020-11-12 Outpatient Marika CARDENAS [facility] [place] [id number] Univers 08:30:00 08:30:[address] [facility] 2020-11-07 2020-11-07 Telephone Agustina Ortiz 6400 1.2.840.11 4 [id number] [place] 00:00:00 00:00:[address] 350.1.13.58 Health 9.2.7.2.686 [id number] 1 2020-11-07 2020-11-07 Telephone Diana UTP 6400 1.2.840.114 124 059159 00:00:00 00:00:[address] 350.1.13.58 9.2.7.2.686 [id number] 1 2020-10-31 2020-10-31 Office Hematporay UTP 6400 1.2.840.114 12 [id number] MO 07:54:00 09:45:[address] 350.1.13.58 Health 9.2.7.2.686 [id number] 1 2020-10-30 2020-10-30 Abstract Rody Maguire UTP 6400 1.2.840.1 14 [id number] MO 00:00:00 00:00:[address] 350.1.13.58 Health 9.2.7.2.686 [id number] 1 2020-10-29 2020-10-29 Reflamonte Cardenas 1.2.840.7 [id number] 20597 400 Univers 00:00:00 00:00:00 Santiago 36944.1.1 ity of 3.104.2.7 [place] .3.810955 Medica l .8 Branch 2020-10-29 2020-10-29 Refill Ronald, 1.2.840.5 [id number] 96912 400 Univers 00:00:00 00:00:00 Santiaog 28113.1.1 ity of 3.104.2.7 [place] .3.332923 Medica l .8 Branch 2020-10-27 2020-10-27 Telephone Jailyn, 1.2.840.2 [id number] 21 [id number] Methodi 00:00:00 00:00:[address] 3.430.2.7 Hospit a .3.618567 l .8 2020-10-24 2020-10-24 Telephone Clark, 1.2.840.1 [id number] 2100 726179 Methodi 00:00:00 00:00:[address] 3.430.2.7 Hospit a .3.598048 l .8 2020-10-22 2020-10-22 Outpatient R SELF, [facility] [id number] Univers 13:00:00 13:00:00 GADIEL rodas [facility] 2020-10-22 2020-10-22 Travel 1.2.840.1 1.2.707.645 1511 3839 Univers 00:00:00 00:00:00 08036.1.1 350.1.13.10 ity of 3.104.2.7 4.2.7.3.698 [place] .3.911511 084.8 Medica l .8 Branch 2020-10-22 2020-10-22 Travel 1.2.840.1 1.2.931.918 8025 3839 Univers 00:00:00 00:00:00 54064.1.1 350.1.13.10 ity of 3.104.2.7 4.2.7.3.698 [place] .3.278705 084.8 Medica l .8 [place] 2020-10-13 2020-10-13 Outpatient R SELF, [facility] [place] [id number] Univers 08:45:00 08:45:00 GADIEL macielcharlie lela clark [facility] 2020-10-06 2020-10-12 Telemedici [facility], 1.2.840.1 [id number] Methodi 15:30:00 00:08:46 ne Ray 68991.1.[address] 3.430.2.7 Hospit a .3.903946 l .8 2020-09-30 2020-09-30 [facility], 1.2.840.1 [id number] Methodi 00:00:00 00:00:[address] 3.430.2.7 Hospit a .3.047886 l .8 2020-09-21 2020-09-21 Travel 1.2.840.1 1.2.645.441 4994 970050 Methodi 00:00:00 00:00:[address] 3.430.2.7 0.2.7.3.698 Ho spita .3.059859 084.8 l .8 2020-09-06 2020-09-06 [facility] 1.2.840.1 [id number] 53469 94268 Methodi 17:42:30 23:59:[address] 3.430.2.7 Hospit a .3.006379 l .8 2020-09-06 2020-09-06 [facility], 1.2.840.1 [id number] 2099 [id number] Methodi 16:50:00 17:41:00 Encounter Ray [address]406.1.[address] 3.430.2.7 Hospit a .3.957265 l .8 2020-09-05 2020-09-05 [facility], 1.2.840.1 [id number] 2099 103018 Methodi 09:17:00 19:45:00 Encounter Ray [address]383.1.[address] 3.430.2.7 Hospit a .3.271851 l .8 2020-09-05 2020-09-05 Surgery Chihara, 1.2.840.1 [id number] 86314 45392 Methodi 11:30:00 13:15:[address] 3.430.2.7 Hospit a .3.298883 l .8 2020-09-05 2020-09-05 Anesthesia Remigio, 1.2.840.1 [id number] 454 [id number] Methodi 11:27:00 12:20:00 Event Johnathanthi 28188.1.1 243 s t V. 3.430.2.7 Hospit a .3.009753 l .8 2020-09-05 2020-09-05 Travel 1.2.840.1 1.2.362.388 2113 533075 Methodi 00:00:00 00:00:[address] 3.430.2.7 0.2.7.3.698 Ho spita .3.967268 084.8 l .8 2020-09-04 2020-09-04 Telephone Meisenbach, 1.2.840.1 [id number] Methodi 00:00:00 00:00:00 Sarai M. 53367.1.1 762 s t 3.430.2.7 Hospit a .3.952078 l .8 2020-09-02 2020-09-02 Telephone Meisenbach, 1.2.840.6 [id number] Methodi 00:00:00 00:00:00 Sarai M. 67918.1.1 344 s t 3.430.2.7 Hospit a .3.056651 l .8 2020-08-29 2020-08-30 Bedded [facility] [id number] [facility] 10:20:00 14:10:00 Outpatient r [place] 00 [facility] 2020-08-29 2020-08-30 Outpatient HEMATPOUR, [facility] CAR 7500 [facility] 05:20:00 09:10:00 BEVERLY 2020-08-06 2020-08-06 Office [place], 1.2.840.0 [id number] 416 Univers 08:03:23 09:17:49 Visit Santiago 54640.1.1 ity of 3.104.2.7 [place] .3.662775 Medica l .8 [place] 2020-08-06 2020-08-06 Outpatient R EAST, [facility] [id number] Univers 08:30:00 08:30:00 SANTIAGO itcharlie of [facility] 2020-07-14 2020-07-14 Outpatient R SELF, [facility] [id number] Univers 09:30:00 09:30:00 GADIEL ity o [facility] 2020-07-14 2020-07-14 Travel 1.2.840.1 1.2.479.922 8956 2575 Univers 00:00:00 00:00:00 16793.1.1 350.1.13.10 ity of 3.104.2.7 4.2.7.3.698 [place] .3.132847 084.8 Medica l .8 [place] 2020-07-14 2020-07-14 Orders Doctor 1.2.840.8 [id number] 309 Univers 00:00:00 00:00:00 Only Unassigned, 86562.1.1 ity of [place] 3.104.2.7 [place] .3.204731 Medica l .8 [place] 2020-06-16 2020-06-16 Outpatient R SELF, [facility] [id number] Univers 08:00:00 08:00:00 GADIEL ity o clark [facility] 2020-06-06 2020-06-06 Telephone Shelby Cardenas.2.840.2 [id number] 809 26992 Univers 00:00:00 00:00:00 Santiago 92052.1.1 ity of 3.104.2.7 [place] .3.228002 Medica l .8 [place] 2020-06-04 2020-06-04 Manager Finance Santiago Cardenas 1.2.840.1 [id number] Univers 09:31:58 09:40:12 Visit [facility] 75627.1.1 ity of 3.104.2.7 [place] .3.000442 Medica l .8 Branch 2020-06-04 2020-06-04 [facility] 1.2.031.431 8512 9729 Univers 08:13:41 09:28:25 Visit Santiago [facility] 350.1.13.10 i ty of CLINICS 4.2.7.2.686 Richi bach [id number] [facility] 089 Branch 2020-06-04 2020-06-04 Outpatient R [facility] [id number] Univers 08:30:00 08:30:00 SANTIAGO ity of [facility] 2020-06-04 2020-06-04 Orders Doctor 1.2.840.1 [id number] 079 Univers 00:00:00 00:00:00 Only Unassigned, 47285.1.1 ity of [place] 3.104.2.7 [place] .3.537899 Medica l .8 [place] 2020-05-19 2020-05-19 Telephone East, 1.2.840.1 [id number] 804 44402 Univers 00:00:00 00:00:00 Santiago 75969.1.1 ity of 3.104.2.7 [place] .3.322997 Medica l .8 Branch 2020-04-24 2020-04-24 Telephone East, 1.2.840.7 [id number] 799 97299 Univers 00:00:00 00:00:00 Santiago 30176.1.1 ity of 3.104.2.7 [place] .3.295148 Medica l .8 Branch 2020-04-14 2020-04-14 Outpatient R [facility] [id number] Univers 09:00:00 09:00:00 SATNIAGO ity of [facility] 2020-04-14 2020-04-14 Telephone East, 1.2.840.3 [id number] 797 [id number] Univers 00:00:00 00:00:00 Santiago 02007.1.1 ity of 3.104.2.7 [place] .3.191392 Medica l .8 [place] 2020-03-31 2020-03-31 Outpatient R [facility] [id number] Univers 08:30:00 08:30:00 SANTIAGO ity of [facility] 2020-03-03 2020-03-03 Outpatient R SELF, [facility] [id number] Univers 08:00:00 08:00:00 GADIEL vogel f [facility] 2020-03-03 2020-03-03 Outpatient R SELF, [facility] [id number] Univers 08:00:00 08:00:00 GADIEL barbosa o f [facility] 2020-03-03 2020-03-03 Travel 1.2.840.1 1.2.437.700 7187 5480 Univers 00:00:00 00:00:00 70733.1.1 350.1.13.10 ity of 3.104.2.7 4.2.7.3.698 [place] .3.648665 084.8 Medica l .8 [place] 2020-02-06 2020-02-06 Telephone [place], 1.2.840.6 [id number] 781 03748 Univers 00:00:00 00:00:00 Santiago 93723.1.1 ity of 3.104.2.7 [place] .3.370430 Medica l .8 [place] 2020-01-26 2020-01-26 Emergency Caridad, 1.2.840.0 [id number] 779 12798 Univers 10:03:00 13:05:00 Cynise 35898.1.1 ity of 3.104.2.7 [place] .3.644433 Medica l .8 [place] 2020-01-26 2020-01-26 Travel 1.2.840.1 1.2.388.162 4645 0120 Univers 00:00:00 00:00:00 19912.1.1 350.1.13.10 ity of 3.104.2.7 4.2.7.3.698 [place] .3.643767 084.8 Medica l .8 [place] 2020-01-25 2020-01-25 Outpatient R EAST, [facility] [id number] Univers 08:30:00 08:30:00 SANTIAGO ity of [facility] 2020-01-25 2020-01-25 Telemedici [place], 1.2.840.0 [id number] Univers 07:36:49 08:06:49 ne Visit Santiago 28078.1.1 ity of 3.104.2.7 [place] .3.797532 Medica l .8 [place] 2020-01-16 2020-01-16 Outpatient R EAST, [facility] [id number] Univers 08:00:00 08:00:[address] [facility] 2020-01-16 2020-01-16 Telephone East, 1.2.840.2 [id number] Univers 00:00:00 00:00:00 Santiago 07103.1.1 ity of 3.104.2.7 [place] .3.781809 Medica l .8 [place] 2020-01-14 2020-01-14 Outpatient R SELF, [facility] [id number] Univers 08:00:00 08:00:00 GADIEL rodas [facility] 2019-12-31 2019-12-31 Outpatient R SELF, [facility] [id number] Univers 08:45:00 08:45:00 GADIEL rodas [facility] 2019-10-17 2019-10-17 Outpatient R EAST, [facility] [place] [id number] Univers 08:30:00 08:30:[address] [facility] 2019-10-12 2019-10-12 Outpatient R EAST, [facility] [place] [id number] Univers 13:00:00 13:00:[address] [facility] 2019-10-12 2019-10-12 Telemedici [place], 1.2.840.6 [id number] Univers 07:38:30 08:08:30 ne Visit [place] 64314.1.1 ity of 3.104.2.7 [place] .3.954531 Medica l .8 [place] 2019-10-08 2019-10-08 Outpatient R SELF, [facility] [place] [id number] Univers 10:15:00 10:15:00 GADIEL rodas [facility] 2019-10-03 2019-10-03 Case Assman, 1.2.840.2 [id number] Univers 00:00:00 00:00:00 Management Michael Corbin 44478.1.1 i ty of 3.104.2.7 [place] .3.996168 Medica l .8 Branch 2019-09-27 2019-09-27 Telephone East, 1.2.840.7 [id number] Univers 00:00:00 00:00:00 [place] 18357.1.1 ity of 3.104.2.7 [place] .3.514635 Medica l .8 Branch 2019-09-04 2019-09-04 Refill East, 1.2.840.8 [id number] Univers 00:00:00 00:00:00 [place] 40056.1.1 ity of 3.104.2.7 [place] .3.199512 Medica l .8 [place] 2019-07-24 2019-07-24 Outpatient R [facility] [id number] Univers 08:30:00 08:30:[address] [facility] 2019-07-17 2019-07-17 [facility] [id number] Univers 10:00:00 10:00:[address] [facility] 2019-06-15 2019-06-15 Telephone East, 1.2.840.4 [id number] Univers 00:00:00 00:00:00 [place] 58392.1.1 ity of 3.104.2.7 [place] .3.156920 Medica l .8 [place] 2019-06-13 2019-06-13 Telephone Team, [facility] 1.2.840.9 [id number] Univers 00:00:00 00:00:00 Health 49504.1.1 [place] .3.0595[place] .8 [place] 2019-05-10 2019-05-10 Refill [place], 1.2.840.5 [id number] Univers 00:00:00 00:00:00 [place] 52033.1.1 ity of 3.104.2.7 [place] .3.168689 Medica l .8 Branch 2019-05-09 2019-05-09 Refill East, 1.2.840.6 [id number] Univers 00:00:00 00:00:00 [place] 61819.1.1 ity of 3.104.2.7 [place] .3.991076 Medica l .8 Branch 2019-04-30 2019-04-30 Outpatient R SELF, [facility] [place] [id number] Univers 10:15:00 10:33:05 GADIEL ity o f [facility] 2019-04-18 2019-04-18 Manager Finance Yohan Cardenasrey 1.2.840.1 [id number] Univers 10:00:39 10:44:31 Visit [facility] 15050.1.1 ity of 3.104.2.7 [place] .3.802183 Medica l .8 Branch 2019-04-18 2019-04-18 Outpatient R RONALD [facility] [place] [id number] Univers 10:00:00 10:44:31 SANTIAGO ity of [facility] 2019-04-18 2019-04-18 Office Ronald, 1.2.840.5 [id number] Univers 08:27:44 09:53:27 Visit [place] 61525.1.1 ity of 3.104.2.7 [place] .3.876238 Medica l .8 Branch 2019-04-18 2019-04-18 Orders Doctor 1.2.840.5 [id number] Univers 00:00:00 00:00:00 Only Unassigned, 58262.1.1 ity of [place] 3.104.2.7 [place] .3.292725 Medica l .8 Branch 2019-04-11 2019-04-11 Refill Ronald, 1.2.840.0 [id number] Univers 00:00:00 00:00:00 [place] 86420.1.1 ity of 3.104.2.7 [place] .3.351769 Medica l .8 Branch 2019-04-09 2019-04-09 Refill Ronald, 1.2.840.8 [id number] Univers 00:00:00 00:00:00 [place] 48490.1.1 ity of 3.104.2.7 [place] .3.209623 Medica l .8 Branch 2019-04-03 2019-04-03 Telephone Team, [facility] 1.2.840.0 [id number] Univers 00:00:00 00:00:00 Health 37548.1.1 [place] .3.696039 Medica [place] .8 [place] 2019-03-27 2019-03-27 Telephone Self, 1.2.840.7 [id number] Univers 00:00:00 00:00:00 Gadiel 84282.1.1 ity of 3.104.2.7 [place] .3.125844 Medica l .8 Branch 2019-01-17 2019-01-17 Office Ronald, 1.2.840.0 [id number] Univers 07:37:21 10:32:51 Visit [place] 15896.1.1 ity of 3.104.2.7 [place] .3.145782 Medica l .8 Branch 2019-01-04 2019-01-12 Office Gil Hanseny 1.2.840.3 [id number] [facility] 11:19:32 11:08:05 Visit Mariela 94467.1.1 ity of 3.104.2.7 [place] .3.622227 Medica l .8 Branch 2019-01-10 2019-01-10 Telephone Stanislav, 1.2.840.6 [id number] Univers 00:00:00 00:00:00 Eladio Inman 03828.1.1 ity of 3.104.2.7 [place] .3.161453 Medica l .8 [place] 2018-12-18 2018-12-18 Office Geraldine, 1.2.840.3 [id number] Univers 08:48:45 09:13:43 Visit Leyda 19169.1.1 it y of 3.104.2.7 [place] .3.802035 Medica l .8 Branch 2018-10-30 2018-10-30 Telephone Ronald, 1.2.840.5 [id number] Univers 00:00:00 00:00:00 [place] 47772.1.1 ity of 3.104.2.7 [place] .3.420459 Medica l .8 Branch 2018-10-23 2018-10-23 Orders Doctor 1.2.840.3 [id number] Univers 00:00:00 00:00:00 Only Unassigned, 57396.1.1 ity of [place] 3.104.2.7 [place] .3.298251 Medica l .8 Branch 2018-10-23 2018-10-23 Nurse Selvin, 1.2.840.0 [id number] Univers 00:00:00 00:00:00 Triage Stefanie 68930.1.1 ity of 3.104.2.7 [place] .3.464637 Medica l .8 Branch 2018-10-23 2018-10-23 Telephone Self, 1.2.840.9 [id number] Univers 00:00:00 00:00:00 Gadiel 86093.1.1 ity of 3.104.2.7 [place] .3.092871 Medica l .8 Branch 2018-10-20 2018-10-20 Telephone Self, 1.2.840.6 [id number] Univers 00:00:00 00:00:00 Gadiel 53323.1.1 ity of 3.104.2.7 [place] .3.373873 Medica l .8 [place] Results Test Description Test Time Test Comments Results Result Comments Source COMP. METABOLIC PANEL (13183) 2022-05-06 22:42:55 Test Item Value Reference Range Interpretation Comme nts NA (test code = 8743114850) 137 mmol/L 135-145 K (test code = 2022421396) 3.2 mmol/L 3.5-5.0 L CL (test code = 2351941708) 100 mmol/L 98-108 CO2 TOTAL (test code = 2512726867) 23 mmol/L 23-31 AGAP (test code = 8936573809) 2-16 BUN (test code = 7134628855) 41 mg/dL 7-23 H GLUCOSE (test code = 5270865040) 98 mg/dL 70-110 CREATININE (test code = 1.55 mg/dL 0.50-1.04 H 3010102681) TOTAL BILI (test code = 0.8 mg/dL 0.1-1.9 8014849431) CALCIUM (test code = 5325723099) 8.3 mg/dL 8.6-10.6 L T PROTEIN (test code = 1850584291) 6.9 g/dL 6.3-8.2 ALBUMIN (test code = 3578107457) 3.9 g/dL 3.5-5.0 ALK PHOS (test code = 7396642397) 89 U/L 34-122 ALTv (test code = 1742-6) 101 U/L 5-35 H AST(SGOT) (test code = 9947575061) 203 U/L 13-40 H eGFR (test code = 7603999790) mL/min/1.73m2 KYLE (test code = KYLE) Association [...] tests). Lab Interpretation (test code = Abnormal 69496-1) [facility] WITH [id number] 22:33:52 Test Item Value Reference Range Interpretation [...] RDW-SD (test code = 46.3 fL 39.0-49.9 22664-6) RDW-CV (test code = 13.5 % 12.0-15.5 788-0) PLT (test code = See_Comment L [Automated 777-3) message] The sy stem which generated this result transmitted reference range : 166 - 358 10*3/ ?L. The reference r abbey was not used to interpret this result as normal/abnormal . MPV (test code = 9.5 fL 9.5-12.9 19551-1) NRBC/100 WBC (test See_Comment [Automat ed code = 5217863026) message] The system which generated this result transmitted reference range : 0.0 - 10.0 /100 WBCs. The refer ence range was not u sed to interpret th is result as normal/abnormal . NRBC x10^3 (test code See_Comment [Auto mated = 8507577080) message] The s ystem which generated this result transmitted reference range : 10*3/?L. The reference range was not used to interpret this result as normal/abnormal . GRAN MAT (NEUT) % 58.3 % (test code = 770-8) IMM GRAN % (test code 0.80 % = 1634574341) LYMPH % (test code = 28.1 % 736-9) MONO % (test code = 12.0 % 5905-5) EOS % (test code = 0.5 % 713-8) BASO % (test code = 0.3 % 706-2) GRAN MAT x10^3(ANC) 2.29 10*3/uL 1.88-7.09 (test code = 4400190799) IMM GRAN x10^3 (test 0.03 10*3/uL 0.00-0.06 code = 3481999031) LYMPH x10^3 (test code 1.10 10*3/uL 1.32-3.29 L = 731-0) MONO x10^3 (test code 0.47 10*3/uL 0.33-0.92 = 742-7) EOS x10^3 (test code = 0.03-0.39 L 711-2) BASO x10^3 (test code 0.01-0.07 = 704-7) Lab Interpretation Abnormal (test code = 64053-6) [facility] METABOLIC PANEL (NA, K, CL, CO2, GLUCOSE, BUN, CREATININE, CA)2022-04-22 21:43:42 Test Item Value Reference Range Interpretation Comments NA (test code = 142 mmol/L 135-145 3690110878) K (test code = 3.5 mmol/L 3.5-5.0 0366796236) CL (test code = 106 mmol/L 98-108 3645457274) CO2 TOTAL (test code = 26 mmol/L 23-31 3110145006) AGAP (test code = 2-16 4794472613) BUN (test code = 29 mg/dL 7-23 H 5755459181) GLUCOSE (test code = 84 mg/dL 70-110 9140157968) CREATININE (test code = 1.16 mg/dL 0.50-1.04 H 8968648128) CALCIUM (test code = 8.2 mg/dL 8.6-10.6 L 3412810772) eGFR (test code = mL/min/1.73m2 1361250796) KYLE (test code = KYLE) Association of [...] tests). Lab Interpretation Abnormal (test code = 89159-0) [facility] WITH [id number] 21:33:01 Test Item Value Reference Range Interpretation Comments WBC (test code = See_Comment [Automated 2969-2) message] The sy stem which generated this result transmitted reference range : 4.30 - 11.10 10*3/?L. The reference range was not used to interpret this result as normal/abnormal . RBC (test code = See_Comment L [Automated 147-8) message] The sy stem which generated this [...] (test code = 50.7 fL 39.0-49.9 H 85588-1) RDW-CV (test code = 14.6 % 12.0-15.5 788-0) PLT (test code = See_Comment L [Automated 777-3) message] The sy stem which generated this result transmitted reference range : 166 - 358 10*3/ ?L. The reference r abbey was not used to interpret this result as normal/abnormal . MPV (test code = 8.8 fL 9.5-12.9 L 64572-6) NRBC/100 WBC (test See_Comment [Automat ed code = 1133649662) message] The system which generated this result transmitted reference range : 0.0 - 10.0 /100 WBCs. The refer ence range was not u sed to interpret th is result as normal/abnormal . NRBC x10^3 (test code See_Comment [Auto mated = 7911926225) message] The s ystem which generated this result transmitted reference range : 10*3/?L. The reference range was not used to interpret this result as normal/abnormal . GRAN MAT (NEUT) % 70.9 % (test code = 770-8) IMM GRAN % (test code 0.50 % = 0391094697) LYMPH % (test code = 17.4 % 736-9) MONO % (test code = 9.0 % 5905-5) EOS % (test code = 1.7 % 713-8) BASO % (test code = 0.5 % 706-2) GRAN MAT x10^3(ANC) 4.60 10*3/uL 1.88-7.09 (test code = 1713110976) IMM GRAN x10^3 (test 0.03 10*3/uL 0.00-0.06 code = 0876252827) LYMPH x10^3 (test code 1.13 10*3/uL 1.32-3.29 L = 731-0) MONO x10^3 (test code 0.58 10*3/uL 0.33-0.92 = 742-7) EOS x10^3 (test code = 0.11 10*3/uL 0.03-0.39 711-2) BASO x10^3 (test code 0.03 10*3/uL 0.01-0.07 = 704-7) Lab Interpretation Abnormal (test code = 30139-5) [facility] CULTURE [id number] 06:01:07 Test Item Value Reference Range Interpretation Comments Blood Culture-Aerobic No organisms No growth Previo us (test code = 70482-1) isolated prelim inary verified result was Culture [...] Culture-Anaerobic isolated preliminar y (test code = 16497-9) verifi ed result was Culture In Progress [...] CDT Lab Interpretation Normal (test code = 50522-7) [facility] CULTURE [id number] 06:01:07 Test Item Value Reference Range Interpretation Comments Blood Culture-Aerobic No organisms No growth Previo us (test code = 72894-5) isolated prelim inary verified result was Culture [...] Culture-Anaerobic isolated preliminar y (test code = 53820-6) verifi ed result was Culture In Progress [...] CDT Lab Interpretation Normal (test code = 12788-8) [id number]:01:07 Test Item Value Reference Range Interpretation Comments Blood Culture-Aerobic No organisms No growth Previo us (test code = 60841-4) isolated prelim inary verified result was Culture [...] Culture-Anaerobic isolated preliminar y (test code = 03468-2) verifi ed result was Culture In Progress [...] CDT Lab Interpretation Normal (test code = 15660-0) [id number] 10:49:10 Test Item Value Reference Range Interpretation Comments NT-proBNP (test code 2660 pg/mL See_Comment H [Autom ated = 4081298382) message] The system which generated this result transmitted reference range : <=125. The reference range was not used to interpret this result as normal/abnormal . KYLE (test code = KYLE) Biotin has been reported to cause a negative bias, interpret results relative to patient's use of biotin. Lab Interpretation Abnormal (test code = 78629-6) [facility] [id number] 10:49:10 Test Item Value Reference Range Interpretation Comments NT-proBNP (test code 2660 pg/mL See_Comment H [Autom ated = 7265405958) message] The system which generated this result transmitted reference range : <=125. The reference range was not used to interpret this result as normal/abnormal . KYLE (test code = KYLE) Biotin has been reported to cause a negative bias, interpret results relative to patient's use of biotin. Lab Interpretation Abnormal (test code = 04209-7) [facility] (NA, K, CL, CO2, GLUCOSE, BUN, CREATININE, CA)2022-02-15 10:44:07 Test Item Value Reference Range Interpretation Comments NA (test code = 134 mmol/L 135-145 L 9316570262) K (test code = 3.2 mmol/L 3.5-5 L 0228999729) CL (test code = 98 mmol/L 98-108 4668584132) CO2 TOTAL (test code = 27 mmol/L 23-31 6303257032) AGAP (test code = 2-16 5533731510) BUN (test code = 19 mg/dL 7-23 4109427699) GLUCOSE (test code = 102 mg/dL 70-110 7847954869) CREATININE (test code = 0.95 mg/dL 0.5-1.04 9892606208) CALCIUM (test code = 8.5 mg/dL 8.6-10.6 L 2902764430) eGFR (test code = mL/min/1.73m2 9411589547) KYLE (test code = KYLE) Association of [...] tests). Lab Interpretation Abnormal (test code = 14338-1) [facility] Test Item Value Reference Range Interpretation Comments MAGNESIUM (test code = 5379088504) 1.8 mg/dL 1.7-2.4 Lab Interpretation (test code = Normal 94765-4) [facility]07 Test Item Value Reference Range Interpretation Comments MAGNESIUM (test code = 8601928618) 1.8 mg/dL 1.7-2.4 Lab Interpretation (test code = Normal 56387-2) [facility] (NA, K, CL, CO2, GLUCOSE, BUN, CREATININE, CA)2022-02-15 10:44:07 Test Item Value Reference Range Interpretation Comments NA (test code = 134 mmol/L 135-145 L 9500136284) K (test code = 3.2 mmol/L 3.5-5.0 L 7826557073) CL (test code = 98 mmol/L 98-108 0142714011) CO2 TOTAL (test code = 27 mmol/L 23-31 5731058548) AGAP (test code = 2-16 6887778096) BUN (test code = 19 mg/dL 7-23 0686619168) GLUCOSE (test code = 102 mg/dL 70-110 3238393163) CREATININE (test code = 0.95 mg/dL 0.50-1.04 8877973495) CALCIUM (test code = 8.5 mg/dL 8.6-10.6 L 1484735772) eGFR (test code = mL/min/1.73m2 4941181963) KYLE (test code = KYLE) Association of [...] tests). Lab Interpretation Abnormal (test code = 79375-2) [facility] WITH [id number] 10:12:06 Test Item Value Reference Range Interpretation Comments WBC (test code = See_Comment L [Automated 3190-2) message] The sy stem which generated this result transmitted reference range : 4.30 - 11.10 10*3/?L. The reference range was not used to interpret this result as normal/abnormal . RBC (test code = See_Comment L [Automated 259-8) message] The sy stem which generated this [...] RDW-SD (test code = 47.8 fL 39-49.9 88714-9) RDW-CV (test code = 15.2 % 12-15.5 788-0) PLT (test code = See_Comment L [Automated 777-3) message] The sy stem which generated this result transmitted reference range : 166 - 358 10*3/ ?L. The reference r abbey was not used to interpret this result as normal/abnormal . MPV (test code = 8.9 fL 9.5-12.9 L 27450-6) NRBC/100 WBC (test See_Comment [Automat ed code = 3050419948) message] The system which generated this result transmitted reference range : 0.0 - 10.0 /100 WBCs. The refer ence range was not u sed to interpret th is result as normal/abnormal . NRBC x10^3 (test code See_Comment [Auto mated = 5551753709) message] The s ystem which generated this result transmitted reference range : 10*3/?L. The reference range was not used to interpret this result as normal/abnormal . GRAN MAT (NEUT) % 65.9 % (test code = 770-8) IMM GRAN % (test code 0.30 % = 4682894224) LYMPH % (test code = 21.0 % 736-9) MONO % (test code = 10.1 % 5905-5) EOS % (test code = 2.4 % 713-8) BASO % (test code = 0.3 % 706-2) GRAN MAT x10^3(ANC) 2.49 10*3/uL 1.88-7.09 (test code = 7502245189) IMM GRAN x10^3 (test 0-0.06 code = 6013045371) LYMPH x10^3 (test code 0.79 10*3/uL 1.32-3.29 L = 731-0) MONO x10^3 (test code 0.38 10*3/uL 0.33-0.92 = 742-7) EOS x10^3 (test code = 0.09 10*3/uL 0.03-0.39 711-2) BASO x10^3 (test code 0.01-0.07 = 704-7) Lab Interpretation Abnormal (test code = 18772-8) [facility] WITH [id number] 10:12:06 Test Item Value Reference Range Interpretation [...] RDW-SD (test code = 47.8 fL 39.0-49.9 21051-1) RDW-CV (test code = 15.2 % 12.0-15.5 788-0) PLT (test code = See_Comment L [Automated 777-3) message] The sy stem which generated this result transmitted reference range : 166 - 358 10*3/ ?L. The reference r abbey was not used to interpret this result as normal/abnormal . MPV (test code = 8.9 fL 9.5-12.9 L 17295-0) NRBC/100 WBC (test See_Comment [Automat ed code = 0662424782) message] The system which generated this result transmitted reference range : 0.0 - 10.0 /100 WBCs. The refer ence range was not u sed to interpret th is result as normal/abnormal . NRBC x10^3 (test code See_Comment [Auto mated = 9601570024) message] The s ystem which generated this result transmitted reference range : 10*3/?L. The reference range was not used to interpret this result as normal/abnormal . GRAN MAT (NEUT) % 65.9 % (test code = 770-8) IMM GRAN % (test code 0.30 % = 9795281217) LYMPH % (test code = 21.0 % 736-9) MONO % (test code = 10.1 % 5905-5) EOS % (test code = 2.4 % 713-8) BASO % (test code = 0.3 % 706-2) GRAN MAT x10^3(ANC) 2.49 10*3/uL 1.88-7.09 (test code = 8756618363) IMM GRAN x10^3 (test 0.00-0.06 code = 6566721494) LYMPH x10^3 (test code 0.79 10*3/uL 1.32-3.29 L = 731-0) MONO x10^3 (test code 0.38 10*3/uL 0.33-0.92 = 742-7) EOS x10^3 (test code = 0.09 10*3/uL 0.03-0.39 711-2) BASO x10^3 (test code 0.01-0.07 = 704-7) Lab Interpretation Abnormal (test code = 58996-3) [facility] WITH [id number] 11:18:28 Test Item Value Reference Range Interpretation [...] RDW-SD (test code = 49.5 fL 39-49.9 54057-8) RDW-CV (test code = 15.5 % 12-15.5 788-0) PLT (test code = See_Comment L [Automated 777-3) message] The sy stem which generated this result transmitted reference range : 166 - 358 10*3/ ?L. The reference r abbey was not used to interpret this result as normal/abnormal . MPV (test code = 11.4 fL 9.5-12.9 84304-8) IPF % (test code = 8.7 % 1.3-7.7 H Platelet count 0842927331) measured by fluorescence method. NRBC/100 WBC (test See_Comment [Automat ed code = 2290376464) message] The system which generated this result transmitted reference range : 0.0 - 10.0 /100 WBCs. The refer ence range was not u sed to interpret th is result as normal/abnormal . NRBC x10^3 (test code See_Comment [Auto mated = 0452959809) message] The s ystem which generated this result transmitted reference range : 10*3/?L. The reference range was not used to interpret this result as normal/abnormal . GRAN MAT (NEUT) % 62.0 % (test code = 770-8) IMM GRAN % (test code 0.80 % = 4593621591) LYMPH % (test code = 22.2 % 736-9) MONO % (test code = 9.6 % 5905-5) EOS % (test code = 5.1 % 713-8) BASO % (test code = 0.3 % 706-2) GRAN MAT x10^3(ANC) 2.21 10*3/uL 1.88-7.09 (test code = 5833848503) IMM GRAN x10^3 (test 0.03 10*3/uL 0-0.06 code = 4644034292) LYMPH x10^3 (test code 0.79 10*3/uL 1.32-3.29 L = 731-0) MONO x10^3 (test code 0.34 10*3/uL 0.33-0.92 = 742-7) EOS x10^3 (test code = 0.18 10*3/uL 0.03-0.39 711-2) BASO x10^3 (test code 0.01-0.07 = 704-7) POLYCHROMASIA (test 2+ See_Comment [Automa arpit code = 95328-5) message] The system which generated this result [...] . Lab Interpretation Abnormal (test code = 42767-2) [facility] METABOLIC PANEL (NA, K, CL, CO2, GLUCOSE, BUN, CREATININE, CA)2022-02-13 10:39:07 Test Item Value Reference Range Interpretation Comments NA (test code = 136 mmol/L 135-145 6779188814) K (test code = 4.1 mmol/L 3.5-5 2372000453) CL (test code = 102 mmol/L 98-108 4007680938) CO2 TOTAL (test code = 27 mmol/L 23-31 3568242227) AGAP (test code = 2-16 9942805369) BUN (test code = 22 mg/dL 7-23 0872591384) GLUCOSE (test code = 94 mg/dL 70-110 3560782525) CREATININE (test code = 0.94 mg/dL 0.5-1.04 0212212993) CALCIUM (test code = 8.1 mg/dL 8.6-10.6 L 2307311746) eGFR (test code = mL/min/1.73m2 3413708206) KYLE (test code = KYLE) Association of [...] tests). Lab Interpretation Abnormal (test code = 00872-6) [facility] 01:50:10 Test Item Value Reference Range Interpretation Comments Height (test code = in 7941833736) Weight (test code = lbs 7518327633) Systolic BP (test code mmHg = 1887132287) Diastolic BP (test code mmHg = 4879997168) Heart Rate (test code = bpm 8438816090) BSA (test code = 1.85 m2 2196598110) IVS (test code = 1.22 cm 3471879486) Interventricular Septum 1.22 cm Diastolic Thickness by 2D (test code = 3173658) LVIDD (test code = 5.00 cm 9996800616) Left Ventricular End 117.9 mL Diastolic Volume by Teichholz Method (test code = 7380773) LVPWD (test code = 1.22 cm 1749781446) PW (test code = 1.22 cm 0.6-1.4 9681344530) EF(Teich) (test code = 74.60 % 8032611462) LVIDS (test code = 2.80 cm 2719834837) Left Ventricular End 29.9 mL Systolic Volume by Teichholz Method (test code = 4510038) FS (test code = 44 % 3003956017) EF - 2D (test code = 74.60 % 79707924) LVOT diameter (test 2.16 cm code = 9819856124) LVOT area (test code = 3.70 cm2 9354295609) Ao root diam (test code 3.40 cm = 5033963065) Aortic root (test code 3.4 cm = 4517362355) Ao root annulus (test 3.4 cm code = 9674654974) LA size (test code = 3.4 cm 5296389319) TR Peak Spencer (test code 330.0 cm/s = 5527904601) Triscuspid Valve mmHg Regurgitation Peak Gradient (test code = 9795976832) PV REGURGITATION PEAK mmHg GRADIENT (test code = 7795923103) PI dec slope (test code 137.20 cm/s2 = 7035502008) LAV(MOD-sp4) (test code 102.90 mL = 7302159843) MV Peak E Spencer (test 84.1 cm/s code = 6880151543) MV Peak A Spencer (test 40.1 cm/s code = 5571136538) E/A ratio (test code = ratio 9972664043) MV valve area p 1/2 3.70 cm2 method (test code = 2251641210) MV dec slope (test code 413.00 cm/s2 = 4863229758) MV P1/2t max sepncer (test 83.70 cm/s code = 1890652912) MV Prop V (test code = 41.80 cm/s 8763699051) Tapse (test code = 1.83 cm 4981347441) LVOT stroke volume 96.90 cm3 (test code = 4091039714) LVOT peak spencer (test 125.5 cm/s code = 2785373690) LVOT mn grad (test code mmHg = 6197064563) AV LVOT peak gradient mmHg (test code = 1137960150) LVOT peak VTI (test 26.4 cm code = 9168416562) LV V1 mean (test code = 78.10 cm/s 7539518519) Aortic valve mean 103.7 cm/s velocity (test code = 7495096111) Ao peak spencer (test code 165.6 cm/s = 5635140566) Ao VTI (test code = 37.2 cm 0902769659) AV area by cont VTI 2.6 cm2 (test code = 0963999985) AV area peak spencer (test 2.8 cm2 code = 5385571833) Ao max PG (test code = 11.00 mm[Hg] 0560012999) AV peak gradient (test mmHg code = 7858746698) AV valve area (test 2.60 cm2 code = 0098168855) AV mean gradient (test mmHg code = 8444191280) LA Volume Index (BP) 55.2 mL/m2 (test code = 8554777066) LA volume (BP) (test 102.1 mL code = 2417355896) LAV(MOD-sp2) (test code 86.10 mL = 5381774109) A2C EF (test code = 61.20 % 9324931070) EF(sp2-el) (test code = 61.60 % 8667833737) SV(MOD-sp2) (test code 47.10 mL = 3184857033) LV Diastolic Volume 70.7 mL (BP) (test code = 3440262059) A4C EF (test code = 53.00 % 0521415111) EF(MOD-bp) (test code = 56.70 % 6323870333) EF(sp4-el) (test code = 53.90 % 9412184656) LV Systolic Volume (BP) 30.6 mL (test code = 2900339352) SV(MOD-bp) (test code = 40.10 mL 4260791343) SV(MOD-sp4) (test code 32.40 mL = 9875739288) SV(sp4-el) (test code = 33.10 mL 3020379639) EF (test code = 5823049517) Left Ventricular Stroke 40.1 mL Volume by 2-D Biplane-MOD (test code = 5412229) LV Diastolic Volume 38.2 mL/m2 Index (BP) (test code = 5449059271) LV Systolic Volume 16.5 mL/m2 Index (BP) (test code = 1801345988) Radiology Study observation (narrative) (test code = 64278-9) KYLE (test code = KYLE) ?Left?Ventricle: Left [...] 1.00The left ventricular wall motion is normal. [id number] 05:45[facility]01 Test Item Value Reference Interpretation Comments Range TROPONIN I (test See_Comment [Automated code = 0462994733) message] The system which generated this result [...] biotin. Lab Interpretation Normal (test code = 45166-9) [facility] [id number] 05:41:40 Test Item Value Reference Range Interpretation Comments NT-proBNP (test code 4250 pg/mL See_Comment H [Autom ated = 2064034240) message] The system which generated this result transmitted reference range : <=125. The reference range was not used to interpret this result as normal/abnormal . KYLE (test code = KYLE) Biotin has been reported to cause a negative bias, interpret results relative to patient's use of biotin. Lab Interpretation Abnormal (test code = 88625-5) [facility] [id number] 05:35:21 Test Item Value Reference Range Interpretation Comments APTT Patient (test See_Comment [Automat ed code = 3173-2) message] The system which generated this result transmitted reference range : 23 - 38 Seconds . The reference range was not used to interpr et this result as normal/abnormal . KYLE (test code = KYLE) The [facility] patient population mean normal value for aPTT is 30 seconds. Lab Interpretation Normal (test code = 76798-0) [facility] [id number] 05:35:21 Test Item Value Reference Range Interpretation Comments APTT Patient (test See_Comment [Automat ed code = 3173-2) message] The system which generated this result transmitted reference range : 23 - 38 Seconds . The reference range was not used to interpr et this result as normal/abnormal . KYLE (test code = KYLE) The [facility] patient population mean normal value for aPTT is 30 seconds. Lab Interpretation Normal (test code = 77475-2) [facility] / [id number] 05:33:21 Test Item Value Reference Range Interpretation [...] tions. Lab Interpretation (test Normal code = 86391-7) [facility]OL[facility] ([id number])2022-02-11 05:33:21 Test Item Value Reference Range Interpretation Comments NA (test code = 137 mmol/L 135-145 0233943059) K (test code = 4.3 mmol/L 3.5-5 0901749644) CL (test code = 103 mmol/L 98-108 5949471558) CO2 TOTAL (test code = 25 mmol/L 23-31 8921188976) AGAP (test code = 2-16 2867167013) BUN (test code = 19 mg/dL 7-23 7336922761) GLUCOSE (test code = 120 mg/dL 70-110 H 9342557091) CREATININE (test code = 1.15 mg/dL 0.5-1.04 H 2386543405) TOTAL BILI (test code = 0.9 mg/dL 0.1-1.8 9763420670) CALCIUM (test code = 8.9 mg/dL 8.6-10.6 5122104464) T PROTEIN (test code = 6.6 g/dL 6.3-8.2 3814616122) ALBUMIN (test code = 4.0 g/dL 3.5-5 5798968328) ALK PHOS (test code = 73 U/L 34-122 9933771939) ALTv (test code = 18 U/L 5-35 2-6) AST(SGOT) (test code = 31 U/L 13-40 5591810666) eGFR (test code = mL/min/1.73m2 1488891408) KYLE (test code = KYLE) Association of [...] tests). Lab Interpretation Abnormal (test code = 83233-8) [facility] METABOLIC PANEL ([id number])2022-02-11 05:33:21 Test Item Value Reference Range Interpretation Comments NA (test code = 137 mmol/L 135-145 4317171682) K (test code = 4.3 mmol/L 3.5-5.0 3614197382) CL (test code = 103 mmol/L 98-108 3562263655) CO2 TOTAL (test code = 25 mmol/L 23-31 4329861057) AGAP (test code = 2-16 9415223634) BUN (test code = 19 mg/dL 7-23 0454393792) GLUCOSE (test code = 120 mg/dL 70-110 H 0299944462) CREATININE (test code = 1.15 mg/dL 0.50-1.04 H 4133246537) TOTAL BILI (test code = 0.9 mg/dL 0.1-1.1 5825977042) CALCIUM (test code = 8.9 mg/dL 8.6-10.6 4136042918) T PROTEIN (test code = 6.6 g/dL 6.3-8.2 4920946157) ALBUMIN (test code = 4.0 g/dL 3.5-5.0 0063762219) ALK PHOS (test code = 73 U/L 34-122 8406650832) ALTv (test code = 18 U/L 5-35 1742-6) AST(SGOT) (test code = 31 U/L 13-40 9266094242) eGFR (test code = mL/min/1.73m2 7775015653) KYLE (test code = KYLE) Association of [...] tests). Lab Interpretation Abnormal (test code = 81053-7) [id number] 05:33:21 Test Item Value Reference Range Interpretation [...] tions. Lab Interpretation (test Normal code = 19290-2) [id number] 05:14:37 Test Item Value Reference Range Interpretation Comments WBC (test code = See_Comment [Automated 4390-2) message] The sy stem which generated this result transmitted reference range : 4.30 - 11.10 10*3/?L. The reference range was not used to interpret this result as normal/abnormal . RBC (test code = See_Comment L [Automated 459-8) message] The sy stem which generated this [...] RDW-SD (test code = 47.9 fL 39-49.9 11994-5) RDW-CV (test code = 14.9 % 12-15.5 788-0) PLT (test code = See_Comment L [Automated 777-3) message] The sy stem which generated this result transmitted reference range : 166 - 358 10*3/ ?L. The reference r abbey was not used to interpret this result as normal/abnormal . MPV (test code = 9.1 fL 9.5-12.9 L 65504-4) NRBC/100 WBC (test See_Comment [Automat ed code = 7207544446) message] The system which generated this result transmitted reference range : 0.0 - 10.0 /100 WBCs. The refer ence range was not u sed to interpret th is result as normal/abnormal . NRBC x10^3 (test code See_Comment [Auto mated = 3532925297) message] The s ystem which generated this result transmitted reference range : 10*3/?L. The reference range was not used to interpret this result as normal/abnormal . GRAN MAT (NEUT) % 78.5 % (test code = 770-8) IMM GRAN % (test code 0.20 % = 6664939398) LYMPH % (test code = 11.6 % 736-9) MONO % (test code = 8.4 % 5905-5) EOS % (test code = 1.1 % 713-8) BASO % (test code = 0.2 % 706-2) GRAN MAT x10^3(ANC) 3.45 10*3/uL 1.88-7.09 (test code = 9627031350) IMM GRAN x10^3 (test 0-0.06 code = 9494393869) LYMPH x10^3 (test code 0.51 10*3/uL 1.32-3.29 L = 731-0) MONO x10^3 (test code 0.37 10*3/uL 0.33-0.92 = 742-7) EOS x10^3 (test code = 0.05 10*3/uL 0.03-0.39 711-2) BASO x10^3 (test code 0.01-0.07 = 704-7) Lab Interpretation Abnormal (test code = 21716-8) [facility] Coronavirus 2019 Uvvhdug5158-99-45 18:08:00 Test Item Value Reference Range Interpretation [...] det ection of nucleic acids f rom tkdANOE-AiK-3 v irus and diagnosis of SA RS-CoV-2 virusinfection. It is an Emergency Use Authorization ( EUA) testauthorized by the U.S. FDA. BASIC METABOLIC [id number] 09:37:00 Test Item Value Reference Range Interpretation [...] = 9.0 mg/dL 8.0-10.5 N CA) PROTHROMBIN AYDS7382-04-50 09:32:00 Test Item Value Reference Range Interpretation [...] (to prevent recurrent infar ct). 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 [facility] - XR CHEST 1 [id number] 00:00:00 [facility] 1955 Sex: F FAX: Carmenza Kelly [phone] [place]: St: ADM FAX: Mike Scales MD [phone] FAX: Bahman Chopra [phone] Name: LIO WATTS [facility] : 1955 Age/S: 66/F [address] [place] [address] Unit #: [id number] Loc: KWABENA Bernstein [address] Phys: Bahman ChopraP Acct: [id number] Dis Date: Status: ADM IN PHONE #: [phone] Exam Date: 06/17/2021 1320 FAX #: [phone] Reason: WATCHMAN EXAMS: CPT CODE: [id number] XR CHEST 1 V 42716 PROCEDURE INFORMATION: Exam: XR Chest Exam date [...] Chopra Technologist: RT Taylor(R) Trnscrd Date/Time/By: 06/17/2021 (3382) : By: Susanna Orig Print D/T: S: 06/17/2021 (6003) PAGE 1 Signed ReportCOVID 19 Asymptomatic IH [...] high or waivedcomplexit y tests. BASIC METABOLIC [id number] 11:37:00 Test Item Value Reference Range Interpretation [...] code = 9.0 mg/dL 8.0-10.5 N CA) NTELSHDGAX5521-01-65 11:37:00 Test Item Value Reference Range Interpretation Comments PREALBUMIN (test code = PREALB) 24.3 mg/dL 16.0-40.0 N PROTHROMBIN [id number] 11:03:00 Test Item Value Reference Range Interpretation [...] (to prevent recurrent infar ct). CBC W/AUTO WONT4469-89-87 10:59:00 Test Item Value Reference Range Interpretation [...] 3/uL 0.0-0.1 N NRBC#) - CHEST 2 [id number] 00:00:00 [facility] : 1955 Sex: F FAX: Carmenza Kelly DO [phone] [place]: St: PRE FAX: Mike Scales MD [phone] Name: LIO WATTS [facility] Tano Garcia : 1955 Age/S: 66/F [address] [place] [address] Unit #: [id number] Loc: [place], [place] [address]Qvfb: Mike Lund MD Acct: [id number] Dis Date: Status: PRE SDC PHONE #: [phone] Exam Date: 06/16/2021 1120 FAX #: [phone] Reason: PREOP EXAMS: CPT CODE: [id number] XR CHEST 2 V 92482 PROCEDURE INFORMATION: Exam: XR Chest Exam date [...] DO; Mike Lund MD Technologist: RT Andree(R) Trndestinyrd Date/Time/By: 06/16/2021 (8373) : By: [email or web address] Orig Print D/T: S: 06/16/2021 (6084) PAGE 1 Signed ReportGastrointestinal zrnku9003-04-99 04:35:05 Test Item Value Reference Interpretation Comments [...] Rotavirus PCR (test Not Detected code = 9694833) Salmonella PCR (test Not Detected code = [...] (test code = 7124) [facility] aaubflm1111-29-30 19:30:47 Test Item Value Reference Range Interpretation Comments Case number (test [id number] code = 5433310) Surgical pathology See link below for PDF report (test code = Lab Report 2255) Result status (test This is Supplemental code = 6711973) Report for [id number] [facility]2021-04-09 16:31:00 Test Item Value Reference Range Interpretation Comments POC Activated Clotting Time (test code 153 s = POC Activated Clotting Time) [facility]CmsqegiZNDACGLEZC5881-74-81 16:31:00 Test Item Value Reference Range Interpretation Comments POC Activated Clotting Time (test code 153 s = POC Activated Clotting Time) [facility] CenterQadsrobHQEDQHUUAC0548-43-96 16:31:00 Test Item Value Reference Range Interpretation Comments POC Activated Clotting Time (test code 153 s = POC Activated Clotting Time) [facility] CenterCiwompkCMCKMKOSMH1215-09-97 16:31:00 Test Item Value Reference Range Interpretation Comments POC Activated Clotting Time (test code 153 s = POC Activated Clotting Time) [facility] CenterYjcwjsuELXGFEJHVP7420-07-09 16:31:00 Test Item Value Reference Range Interpretation Comments POC Activated Clotting Time (test code 153 s = POC Activated Clotting Time) [facility] CenterTdvarbyAGFNDUTQIY1914-47-64 16:31:00 Test Item Value Reference Range Interpretation Comments POC Activated Clotting Time (test code 153 s = POC Activated Clotting Time) [facility] CenterRxajcxmSZJKOYCRYK3655-23-20 16:31:00 Test Item Value Reference Range Interpretation Comments POC Activated Clotting Time (test code 153 s = POC Activated Clotting Time) [facility] CenterWadfdqhLAGTGHEQUO4859-42-11 14:37:00 Test Item Value Reference Range Interpretation Comments POC Activated Clotting Time (test code 454 s = POC Activated Clotting Time) [facility] CenterNcnrkilOPHLPGVWWD1783-52-50 14:37:00 Test Item Value Reference Range Interpretation Comments POC Activated Clotting Time (test code 454 s = POC Activated Clotting Time) [facility] CenterRurtqgdNFBOQMYZEE0267-50-35 14:37:00 Test Item Value Reference Range Interpretation Comments POC Activated Clotting Time (test code 454 s = POC Activated Clotting Time) [facility] CenterDkziwrgOUTRUIZQJY5613-84-45 14:37:00 Test Item Value Reference Range Interpretation Comments POC Activated Clotting Time (test code 454 s = POC Activated Clotting Time) [facility] CenterYjfivhtIFBMUMVKLM2550-29-29 14:37:00 Test Item Value Reference Range Interpretation Comments POC Activated Clotting Time (test code 454 s = POC Activated Clotting Time) [facility] CenterEgicnarGGZRMICXRP2617-13-99 14:37:00 Test Item Value Reference Range Interpretation Comments POC Activated Clotting Time (test code 454 s = POC Activated Clotting Time) [facility] CenterCzgulimISIEYLRQXV1920-53-98 14:37:00 Test Item Value Reference Range Interpretation Comments POC Activated Clotting Time (test code 454 s = POC Activated Clotting Time) [facility] CenterZjrlglqYINQIYWSVC8636-28-78 14:13:00 Test Item Value Reference Range Interpretation Comments POC Activated Clotting Time (test code 354 s = POC Activated Clotting Time) [facility] CenterZsfkxqfTTGRFHHGZJ8967-29-58 14:13:00 Test Item Value Reference Range Interpretation Comments POC Activated Clotting Time (test code 354 s = POC Activated Clotting Time) [place] 683211-04-09 14:13:00 Test Item Value Reference Range Interpretation Comments POC Activated Clotting Time (test code 354 s = POC Activated Clotting Time) [facility] CenterCbxhtoaNTZGDPHYZT2371-29-33 14:13:00 Test Item Value Reference Range Interpretation Comments POC Activated Clotting Time (test code 354 s = POC Activated Clotting Time) [facility]BeektzqWIFSQOTQAG5950-47-74 14:13:00 Test Item Value Reference Range Interpretation Comments POC Activated Clotting Time (test code 354 s = POC Activated Clotting Time) [facility] SystemWszhxbwDAQMSIHMJR2512-55-45 14:13:00 Test Item Value Reference Range Interpretation Comments POC Activated Clotting Time (test code 354 s = POC Activated Clotting Time) [facility] SystemQgptolfUFDWMISFAB4763-26-32 14:13:00 Test Item Value Reference Range Interpretation Comments POC Activated Clotting Time (test code 354 s = POC Activated Clotting Time) [facility] BANK DAKXRQZ3194-09-87 10:37:00Negative (08/29/20 5:37 AM) [facility] GEIYP8371-55-15 10:37:22799Zbihuapl HermannCHEM PANEL 2020-08-29 10:37:0028[facility]annCHE[facility] FHZVT0660-40-24 10:37:001.01[facility]CHE[facility] XACOP0911-67-61 10:37:97178Nbjzxqmo [facility] ENQTQ9809-64-85 10:37:003.8[facility]annCHE[facility] YVZWU8208-31-29 10:37:23952Vcwivhgo [facility] BLZFJ4583-22-75 10:37:0028[facility]CHE[facility] ZHKDF3275-53-36 10:37:009.8 [facility] HRKLD5482-83-27 10:37:0011.8[facility]annCHEM PANEL 2020-08-29 10:37:0059[facility]annCHEM PELHH5315-78-39 10:37:002.9[facility] MppfomuWSHOTBDQQT3746-37-76 10:37:006.8[facility] TzsrvjkRJZJUJWNGF8785-83-69 10:37:004.47[facility] SvubxlfQKNCNUOTQA5136-74-38 10:37:0010.6[facility] XPGPEEYYNE4551-78-95 10:37:0034.0[facility] AtwobtvYFFLGNGOYU7753-34-44 10:37:00 76.1[facility] OpdlqcbSHAVMODQSE5689-60-37 10:37:00 Test Item Value Reference Range Interpretation Comments MCH (test code = MCH) 23.8 pg 27.0-31.0 [facility] EdfmutsYIMDFRXCMG8497-82-64 10:37:0031.3[facility]annHEMATOLOGY 2020-08-29 10:37:0018.2[facility] EluoemzQWZGRFLLQD9487-28-53 10:37:30412Wjnpfdlm XoknjagLBWDOHQQXY6957-15-72 10:37:007.5[facility] RqrqphtAVLHHXPUAK0017-89-18 10:37:00 Test Item Value Reference Range Interpretation Comments PT (test code = PT) 12.8 s 12.0-14.7 [facility] MlbbwlrEPAOMCLIKN0384-37-89 10:37:00 Test Item Value Reference Range Interpretation Comments INR (test code = INR) 0.97 1 0.85-1.17 [facility] UqukxlaWXKQGQRELV3616-68-45 10:37:00 Test Item Value Reference Range Interpretation Comments PTT (test code = PTT) 25.0 s 22.9-35.8 [facility] MudjypmNOKXXWATPV8500-96-79 10:37:0070.5[facility]annHEMATOLOGY 2020-08-29 10:37:0018.8[facility] HgsfosaOABIBIUVQM7664-15-47 10:37:009.5[facility] EyaluyjHFCIBBIFTM5563-57-53 10:37:000.9[facility] AhgyvfkYLXHUOBWRH4468-83-26 10:37:000.3[facility] TqbmukiKPWWDGESNA1008-15-84 10:37:004.8[facility] BKBKMCJLIS7012-85-76 10:37:001.3[facility] DraefpyNHIGMZPZNY0714-91-03 10:37:000.6 [facility] HxuscljLXDQPTUEAV0241-87-40 10:37:000.1[facility]annHEMATOLOGY 2020-08-29 10:37:001+ *ABN*(08/29/20 5:37 AM)[facility] QocvtsoTCFGTERBOB1769-70-19 10:37:00Not Detected (08/29/20 5:37 AM)[facility]annBLOOD BANK RESULTS 2020-08-29 10:37:00Negative (08/29/20 5:37 AM)[facility]annCHEM ZOVQH6583-18-66 10:37:59571Bxfedqbg [facility]annCHEM QJSJN1470-34-71 10:37:0028[facility]annCHEM QXOKO8648-35-26 10:37:001.01[facility]annCHEM VZCWC3526-87-96 10:37:70773 [facility]CHE[facility] QCTSG0619-15-50 10:37:003.8[facility]annCHEM PANEL 2020-08-29 10:37:20741Kcpkjjdf [facility]annCHEM LNMAA6721-08-48 10:37:0028[facility]annCHE[facility] ZRIWR5846-43-30 10:37:009.8[facility]annCHE[facility] TURZA8426-40-31 10:37:0011.8[facility]annCHE[facility] XVWWA4339-55-29 10:37:0059[facility]annCHE[facility] LGRBZ5278-69-17 10:37:002.9[facility] FkekqllTSRPAXAJHX6032-20-92 10:37:006.8 [facility] ZsxufntNBFVFWPVMK6617-25-27 10:37:004.47[facility]annHEMATOLOGY 2020-08-29 10:37:0010.6[facility] PvchcllMMXSFJENKQ8312-77-81 10:37:0034.0[facility] TizljxfIQCYAVLYQF6541-55-14 10:37:0076.1[facility] GhzmrxxOQGCODDEXQ8584-34-76 10:37:00 Test Item Value Reference Range Interpretation Comments MCH (test code = MCH) 23.8 pg 27.0-31.0 [facility] RkhbkrpWETDDJVMEI1225-76-77 10:37:0031.3[facility]annHEMATOLOGY 2020-08-29 10:37:0018.2[facility] DksdbhgWCJFZIYRJU3167-81-08 10:37:72053Chljtqaq YibvhwcYWXKZLLUYO2255-27-37 10:37:007.5[facility] RfdzpioKSYAVKSDPD8464-90-03 10:37:00 Test Item Value Reference Range Interpretation Comments PT (test code = PT) 12.8 s 12.0-14.7 [facility] IpxamnsBQKJFXKKNI3464-29-33 10:37:00 Test Item Value Reference Range Interpretation Comments INR (test code = INR) 0.97 1 0.85-1.17 [facility] UjmravgRWUKEVHTYN3852-60-21 10:37:00 Test Item Value Reference Range Interpretation Comments PTT (test code = PTT) 25.0 s 22.9-35.8 [facility] JnmjomdHOGCXYMZON8202-74-95 10:37:0070.5[facility]annHEMATOLOGY 2020-08-29 10:37:0018.8[facility] JgbgeehSEZGXYMBCX6384-62-40 10:37:009.5[facility] PvegmfzSXWUDBYOYS9043-14-11 10:37:000.9[facility] GtpmvvhBCAKYKINBB6394-70-77 10:37:000.3[facility] IyifwhuKBMZYFYHNE3012-07-81 10:37:004.8[facility] LNPEVBNWTF8743-22-54 10:37:001.3[facility] KwzictmJCZHVAJGIV7106-87-37 10:37:000.6 [facility] BeyuajfXOXJKKTDQR6260-25-71 10:37:000.1[facility]annHEMATOLOGY 2020-08-29 10:37:001+ *ABN*(08/29/20 5:37 AM)[facility] SfhyhwbJBOCRAODNM6104-44-73 10:37:00Not Detected (08/29/20 5:37 AM)[facility]annBLOOD BANK RESULTS 2020-08-29 10:37:00Negative (08/29/20 5:37 AM)[facility]annCHEM LHOOH5792-27-51 10:37:18762Wlzlxebs [facility]annCHEM CHTNN7516-07-58 10:37:0028[facility]annCHE[facility] CNFGK2870-17-59 10:37:001.01[facility]annCHEM DBXBK2271-72-85 10:37:33551 [facility]CHE[facility] ZFQMW4264-55-16 10:37:003.8[facility]annCHEM PANEL 2020-08-29 10:37:75582Rvxcynhm [facility]annCHE[facility] IZKTV9063-69-56 10:37:0028[facility]annCHEM PTVZD0930-49-90 10:37:009.8[facility]annCHEM OLIRG2464-52-29 10:37:0011.8[facility]annCHEM BQIFG0945-06-86 10:37:0059[facility]annCHEM INVAL4144-96-95 10:37:002.9[facility] MxxfyaaYKUQKBMJKJ5569-17-50 10:37:006.8 [facility] YprvgqqQAQDSIJJGT5224-27-94 10:37:004.47[facility]annHEMATOLOGY 2020-08-29 10:37:0010.6[facility] BmqslupEGMHIKRDRY5792-93-70 10:37:0034.0[facility] MamvyhfQXCOVBJOEX2475-44-33 10:37:0076.1[facility] OguougxSLVBDRHFYB2474-34-81 10:37:00 Test Item Value Reference Range Interpretation Comments MCH (test code = MCH) 23.8 pg 27.0-31.0 [facility] YncfxrnIFBVVHZBKI5819-26-02 10:37:0031.3[facility]annHEMATOLOGY 2020-08-29 10:37:0018.2[facility] BcxzeyuMVCGBQWXUN4803-38-49 10:37:80707Kmqgsypb KlxbediFOMZBDLTRT5753-12-55 10:37:007.5[facility] MiurnhzGBCYIMLDGR4132-77-84 10:37:00 Test Item Value Reference Range Interpretation Comments PT (test code = PT) 12.8 s 12.0-14.7 [facility] SrovaupNDNASICIML4493-69-77 10:37:00 Test Item Value Reference Range Interpretation Comments INR (test code = INR) 0.97 1 0.85-1.17 [facility] FiafhsbEIGWUQDOLH0429-57-30 10:37:00 Test Item Value Reference Range Interpretation Comments PTT (test code = PTT) 25.0 s 22.9-35.8 [facility] JjfdfylAQLAFIDFFK9669-66-31 10:37:0070.5[facility]annHEMATOLOGY 2020-08-29 10:37:0018.8[facility] HqsrrasPSQGFCBNHA6512-97-20 10:37:009.5[facility] LhdwepwZGQPBTPLGW6824-98-91 10:37:000.9[facility] IzcusxbUJWODISMDR1125-32-69 10:37:000.3[facility] CbekaolUDNWMDYIJV6639-08-71 10:37:004.8[facility] MDWJULBUGS4990-83-26 10:37:001.3[facility] GpbayjlLBJSALRONE5967-91-68 10:37:000.6 [facility] ZlabeeyASYHHWVLBU8413-58-56 10:37:000.1[facility]annHEMATOLOGY 2020-08-29 10:37:001+ *ABN*(08/29/20 5:37 AM)[facility] LzepyufPOFFFPZFOI8429-43-38 10:37:00Not Detected (08/29/20 5:37 AM)[facility]annBLOOD BANK RESULTS 2020-08-29 10:37:00Negative (08/29/20 5:37 AM)[facility]annCHEM XQZPE2714-03-63 10:37:72183Jrmbcgrp [facility]annCHEM MRAJJ4446-06-08 10:37:0028[facility]annCHEM NEKMR2584-48-33 10:37:001.01[facility]annCHEM ZDLZJ0192-16-31 10:37:27034 [facility]CHE[facility] PVGCS2070-86-14 10:37:003.8[facility]annCHEM PANEL 2020-08-29 10:37:14158Vgjgmjop [facility]annCHEM IVEJZ5253-27-05 10:37:0028[facility]annCHEM GSMRU7251-54-79 10:37:009.8[facility]annCHEM MORGS2382-39-94 10:37:0011.8[facility]annCHEM BGAZZ9023-86-82 10:37:0059[facility]annCHEM ZWOGC5707-29-45 10:37:002.9[facility] ExlerpxNTSXRNDVVG9973-77-38 10:37:006.8 [facility] IvfyrjiFJWJBVELBR8469-00-80 10:37:004.47[facility]annHEMATOLOGY 2020-08-29 10:37:0010.6[facility] PybpkfmVEIJNABGEE5373-71-65 10:37:0034.0[facility] CvhnxlwCETWIILWWE0551-10-65 10:37:0076.1[facility] WtlkzuuBRVMNFLPKZ6476-05-59 10:37:00 Test Item Value Reference Range Interpretation Comments MCH (test code = MCH) 23.8 pg 27.0-31.0 [facility] SonnhsnYSKBTYYOUV4487-48-45 10:37:0031.3[facility]annHEMATOLOGY 2020-08-29 10:37:0018.2[facility] VowugflLOITAHWFHY7584-70-85 10:37:54174Szshgrua SucdgfbSFNVYLLTPY3238-47-60 10:37:007.5[facility] LkcsoucDWEKBSNTGW5143-21-11 10:37:00 Test Item Value Reference Range Interpretation Comments PT (test code = PT) 12.8 s 12.0-14.7 [facility] EheetlkMHAIFNFAES1864-10-77 10:37:00 Test Item Value Reference Range Interpretation Comments INR (test code = INR) 0.97 1 0.85-1.17 [facility] MuelfszZSQYUOTHCA3324-51-46 10:37:00 Test Item Value Reference Range Interpretation Comments PTT (test code = PTT) 25.0 s 22.9-35.8 [facility] QdwlvtpDFEGJZEEPP7567-80-68 10:37:0070.5[facility]annHEMATOLOGY 2020-08-29 10:37:0018.8[facility] InefufbUKLIVMBDRX0083-14-29 10:37:009.5[facility] EtgdeqdSUEPQBHIRY3901-62-44 10:37:000.9[facility] KiqgghnCAENOVNBEN1420-86-62 10:37:000.3[facility] JnwkjkiWOAOXYOMCZ8247-19-87 10:37:004.8[facility] YBUCOEFUXZ7164-74-68 10:37:001.3[facility] QprfqubJPHLBFNZKJ6855-67-32 10:37:000.6 [facility] OkwwxzvOZRZYTMADZ1134-18-53 10:37:000.1[facility]annHEMATOLOGY 2020-08-29 10:37:001+ *ABN*(08/29/20 5:37 AM)[facility] YqkwoqeWPREWRCJKC1556-44-42 10:37:00Not Detected (08/29/20 5:37 AM)[facility]annBLOOD BANK RESULTS 2020-08-29 10:37:00Negative (08/29/20 5:37 AM)[facility]annCHEM IECPS7428-09-68 10:37:66559Ycdduvie [facility]annCHEM UFOOJ9487-42-94 10:37:0028[facility]annCHEM NHQVY4797-98-01 10:37:001.01[facility]annCHE[facility] IAPHD7676-08-16 10:37:67946 [facility]CHE[facility] TYAEL4122-63-16 10:37:003.8[facility]annCHEM PANEL 2020-08-29 10:37:85633Ynuyqgrh [facility]annCHEM YDSZU5712-53-02 10:37:0028[facility]annCHEM VAWLB8041-51-51 10:37:009.8[facility]annCHEM YVQVO2325-98-72 10:37:0011.8[facility]annCHEM YPSRY6681-65-91 10:37:0059[facility]annCHEM HTXTK3175-42-74 10:37:002.9[facility] TebwbstCOGMDAEOBN2778-01-51 10:37:006.8 [facility] SfqluepNHVXBXUKSA8135-57-79 10:37:004.47[facility]annHEMATOLOGY 2020-08-29 10:37:0010.6[facility] CfvxpvcEWUBVNLFIM6507-82-80 10:37:0034.0[facility] XzjiusyDKTJMUOQAF9925-90-52 10:37:0076.1[facility] VbaamheXXDZKQZJRU9167-71-38 10:37:00 Test Item Value Reference Range Interpretation Comments MCH (test code = MCH) 23.8 pg 27.0-31.0 [facility] QlbevtiTEYLGWTPRG1902-24-04 10:37:0031.3[facility]annHEMATOLOGY 2020-08-29 10:37:0018.2[facility] WqrwsnnPRVEDNBNRR9254-32-14 10:37:92564Ogzfwbzp QavxkkaYCNXKWSLOA7969-70-74 10:37:007.5[facility] QkyslxwARUUPFMZIK0939-15-74 10:37:00 Test Item Value Reference Range Interpretation Comments PT (test code = PT) 12.8 s 12.0-14.7 [facility] MowqahdNCCOVHEPET2024-91-18 10:37:00 Test Item Value Reference Range Interpretation Comments INR (test code = INR) 0.97 1 0.85-1.17 [facility] BaygjwwYLBBCUYCPR1933-89-25 10:37:00 Test Item Value Reference Range Interpretation Comments PTT (test code = PTT) 25.0 s 22.9-35.8 [facility] DfelvksIXZFAHQJGD2169-87-79 10:37:0070.5[facility]annHEMATOLOGY 2020-08-29 10:37:0018.8[facility] CnuhhsvHTLTEGBOAX4150-29-46 10:37:009.5[facility] WnqueusRZMBPEESHZ6919-73-81 10:37:000.9[facility] YbviuqaAAFWMYLIBB7477-06-70 10:37:000.3[facility] ZjouijdPYXVWLXQPJ8777-45-79 10:37:004.8[facility] JFFOPQFMQX9356-38-04 10:37:001.3[facility] IhfmrerZQWBEHJBDE1525-53-12 10:37:000.6 [facility] FmhaujwKLOUJPICEM2853-22-94 10:37:000.1[facility]annHEMATOLOGY 2020-08-29 10:37:001+ *ABN*(08/29/20 5:37 AM)[facility] OzaobskKFHUYZCTPB7217-58-79 10:37:00Not Detected (08/29/20 5:37 AM)[facility]annBLOOD BANK RESULTS 2020-08-29 10:37:00Negative (08/29/20 5:37 AM)[facility]annCHEM ZOZQF7737-13-83 10:37:43018Bduxhpig HermannCHEM PUVUI5042-46-84 10:37:0028[facility]annCHEM JRWXV5274-48-97 10:37:001.01[facility]annCHEM WYHDF8393-56-10 10:37:79494 [facility]annCHE[facility] KCLCI8066-52-64 10:37:003.8[facility]annCHE[facility] PANEL 2020-08-29 10:37:20906Uyxqyrsq HermannCHEM WYXXT6222-41-72 10:37:0028[facility]annCHE[facility] NDDIL1439-68-04 10:37:009.8[facility]annCHE[facility] LCBOJ6623-14-53 10:37:0011.8[facility]annCHE[facility] LUFJI0186-90-84 10:37:0059[facility]annCHE[facility] BUAGI1498-55-53 10:37:002.9[facility] EvszkjfQRYIUITAMH3209-10-70 10:37:006.8 [facility] WmkqjbhLTDQOVCNFQ7392-58-72 10:37:004.47[facility]annHEMATOLOGY 2020-08-29 10:37:0010.6[facility] XbntkuzAYQTVISYGI9446-17-54 10:37:0034.0[facility] RralnquPFRFLNSZJD9597-05-73 10:37:0076.1[facility] SznxafcEDUZNEZUNR9310-05-26 10:37:00 Test Item Value Reference Range Interpretation Comments MCH (test code = MCH) 23.8 pg 27.0-31.0 [facility] TkjlkueJJKGICSHCR4770-86-35 10:37:0031.3[facility]annHEMATOLOGY 2020-08-29 10:37:0018.2[facility] EiwpkuhONJMVUDLPT3409-94-53 10:37:21619Lonfnysy SzsfyoyTDWXXPATBI6860-60-56 10:37:007.5[facility] LkurrldCXNNXVGHFM3607-96-27 10:37:00 Test Item Value Reference Range Interpretation Comments PT (test code = PT) 12.8 s 12.0-14.7 [facility] SlyffiyRRGZXSYFTG4859-69-00 10:37:00 Test Item Value Reference Range Interpretation Comments INR (test code = INR) 0.97 1 0.85-1.17 [facility] RsdzadfZGVJXINCYX0329-56-74 10:37:00 Test Item Value Reference Range Interpretation Comments PTT (test code = PTT) 25.0 s 22.9-35.8 [facility] FvkwzgpZCXQLFKNZU7781-57-25 10:37:0070.5[facility]annHEMATOLOGY 2020-08-29 10:37:0018.8[facility] QabfkkiCYSXXKEBKY3237-47-15 10:37:009.5[facility] QbtetssGZXHJWYZJC6056-96-45 10:37:000.9[facility] IucifhtYRTXDODVHY8595-75-06 10:37:000.3[facility] SxwetpoIZEFIGTQKI6711-56-96 10:37:004.8[facility] SZJAIUPBBB9992-82-00 10:37:001.3[facility] QmiewqrLMFMDENLAS1283-12-02 10:37:000.6 [facility] MpoobmwBFUZYSRZNO0053-03-30 10:37:000.1[facility]annHEMATOLOGY 2020-08-29 10:37:001+ *ABN*(08/29/20 5:37 AM)[facility] RcespfyBGPKNAHCNI2024-39-25 10:37:00Not Detected (08/29/20 5:37 AM)[facility]annBL[facility]OD BANK RESULTS 2020-08-29 10:37:00Negative (08/29/20 5:37 AM)[facility]annCHE[facility] UZTAR7670-63-03 10:37:13068Qdecelup HermannCHEM KYCZO7176-39-91 10:37:0028[facility]annCHEM SUNKI2073-48-53 10:37:001.01[facility]annCHE[facility] UASHX5484-97-81 10:37:82804 [facility]CHE[facility] UDQYM5038-82-98 10:37:003.8[facility]annCHEM PANEL 2020-08-29 10:37:74232Luclehzy HermannCHEM XZIOG6896-86-18 10:37:0028[facility]annCHE[facility] IGTIM9164-46-67 10:37:009.8[facility]annCHE[facility] UJYCT4602-29-95 10:37:0011.8[facility]annCHEM GBEGG1413-72-73 10:37:0059[facility]annCHE[facility] PWANQ7847-04-38 10:37:002.9[facility] StcorftBFWHCRNQNL2773-21-23 10:37:006.8 [facility] SgxfswgYDAAFDNMNE4077-03-85 10:37:004.47[facility]annHEMATOLOGY 2020-08-29 10:37:0010.6[facility] BzfmferUKUDLNDDWR6069-21-47 10:37:0034.0[facility] ZcgfifdFLDNLLWQZF3675-13-01 10:37:0076.1[facility] EabzvisHAOIGWFWSL6876-70-64 10:37:00 Test Item Value Reference Range Interpretation Comments MCH (test code = MCH) 23.8 pg 27.0-31.0 [facility] EniibqiYEFLNKBVQB8354-58-17 10:37:0031.3[facility]annHEMATOLOGY 2020-08-29 10:37:0018.2[facility] RkwugbuWPWNRHFOOL9685-53-05 10:37:35957Bgaxjjyi LbujnwyFLIAJRLRLL8881-21-71 10:37:007.5[facility] VebjwrnUEKZKHGXGV9437-16-78 10:37:00 Test Item Value Reference Range Interpretation Comments PT (test code = PT) 12.8 s 12.0-14.7 [facility] KwifgceXZNEHKXHRV8250-41-37 10:37:00 Test Item Value Reference Range Interpretation Comments INR (test code = INR) 0.97 1 0.85-1.17 [facility] [id number] 10:37:00 Test Item Value Reference Range Interpretation Comments PTT (test code = PTT) 25.0 s 22.9-35.8 [facility] [id number] 10:37:0070.5[facility] 2020-08-29 10:37:0018.8[facility] [id number] 10:37:009.5[facility] [id number] 10:37:000.9[facility] [id number] 10:37:000.3[facility] [id number] 10:37:004.8[facility] [id number] 10:37:001.3[facility] [id number] 10:37:000.6 [facility] [id number] 10:37:000.1[facility]annHEMATOLOGY 2020-08-29 10:37:001+ *ABN*(08/29/20 5:37 AM)[facility] [id number] 10:37:00Not Detected (08/29/20 5:37 AM)[facility] JessicaDIA, GC, TV,PCR, IN [id number] 15:38:00 Test Item Value Reference Range Interpretation Comments FT (test code = CHTR) Not detected (qualifier Not Detected N value) FT (test code = Not detected (qualifier Not Detected N NGONO) value) FT (test code = TRVG) Not detected (qualifier Not Detected N value) [facility] WITH [id number] 10:57:00 Test Item Value Reference Range Interpretation Comments Color (test code = UCOLR) Dk. Yellow Clarity (test code = UCLAR) Hazy Glucose (test code = UGLUC) NEGATIVE NEGATIVE N Bilirubin (test code = UBILI) NEGATIVE NEGATIVE N Ketones (test code = UKET) NEGATIVE NEGATIVE N Specific [place] (test code = 1.025 1.005-1.030 A USPGR) [...]
--- NOTE | 2022-07-05 22:05 | ER ---
Nurse's Notes [facility] Name: Marjan Barry Age: 67 yrs Sex: Female : 1955 Arrival Date: 07/05/2022 Time: 21:06 Bed IW10 Private MD: Diagnosis: Chronic pain syndrome Presentation: 07/05 21:07 Chief complaint: Patient states: "I know rekha barry is here. I have flank pain and jh5 the scrits they gave me last time i was here dont work so i didn't fill them". Coronavirus screen: Vaccine status: Patient reports being unvaccinated. Client denies travel out of the [place] in the last 14 days. Ebola Screen: Patient negative for fever greater than or equal to 101.5 degrees Fahrenheit, and additional compatible Ebola Virus Disease symptoms Patient denies exposure to infectious person. Patient denies travel to an Ebola-affected area in the 21 days before illness onset. Initial Sepsis Screen: Does the patient meet any 2 criteria? No. Patient's initial sepsis screen is negative. Does the patient have a suspected source of infection? No. Patient's initial sepsis screen is negative. Risk Assessment: Do you want to hurt yourself or someone else? Patient reports no desire to harm self or others. 21:07 Method Of Arrival: EMS: [facility] 5 21:07 Acuity: BLAYNE 3 jh5 22:05 Note PT REPORT IS LEAVING. Triage Assessment: 21:08 General: Appears comfortable, Behavior is calm, cooperative, appropriate for age. Pain: jh5 Complains of pain in back and abdomen. 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 - Social history:: Smoking status: . - Family history:: not pertinent. Screenin:55 [facility] ED Fall Risk Assessment (Adult) History of falling in the last 3 months, kl including since admission Yes- single mechanical fall (1 pt) Confusion or Disorientation No (0 pts) Intoxicated or Sedated No (0 pts) Impaired Gait No (0 pts) Mobility Assist Device Used No (0 pt) Altered Elimination No (0 pt) Score/Fall Risk Level 0 - 2 = Low Risk Oriented to surroundings, Maintained a safe environment. Abuse screen: Denies threats or abuse. Denies injuries from another. Nutritional screening: No deficits noted. Tuberculosis screening: No symptoms or risk factors identified. Assessment: 23:55 Reassessment: Patient appears in no apparent distress at this time. Patient and/or kl family updated on plan of care and expected duration. Pain level reassessed. Patient is alert, oriented x 3, equal unlabored respirations, skin warm/dry/pink. Vital Signs: 21:07 BP 198 / 100; Pulse 70; Resp 18; Temp 98.6; Pulse Ox 96% ; Weight 97.52 kg; Height 5 [facility] ft. 8 in. (172.72 cm); Pain 10/10; 21:07 Body Mass Index 32.69 (97.52 kg, 172.72 cm) [facility] ED Course: 21:06 Patient arrived in ED. 3 21:[address] [facility] 21:08 Arm band placed on right wrist. [facility] 21:13 Justus Barry MD is Attending Physician. [facility] 23:55 No provider procedures requiring assistance completed. Patient did not have IV access kl during this emergency room visit. Administered Medications: No medications were administered Medication: 23:55 VIS not applicable for this client. Outcome: 23:55 Discharged to home ambulatory. 23:55 Condition: stable 23:55 Discharge instructions given to patient, Instructed on discharge instructions, follow up and referral plans. Demonstrated understanding of instructions. 23:56 Discharge ordered by . 23:56 Patient left the ED. Signatures: Paige De Jesus RN RN kl Anderson, Corey, MD MD cha Gomez, [facility] Sharee Castrejon RN RN 5 Corrections: (The following items were deleted from the chart) 23:02 22:05 Patient left the ED. [facility]
[2022-07-05 22:54] VITALS: BP 198/100; TEMP 98.6; O2SAT 96
--- NOTE | 2022-07-05 23:20 | EDPHYS ---
Physician Documentation [facility] Name: Marjan Kolb Age: 67 yrs Sex: Female : 1955 Arrival Date: 07/05/2022 Time: 21:06 Bed IW10 Private MD: ED Physician Justus Kolb HPI: 07/05 23:13 This 67 yrs old Female presents to ER via EMS with complaints of Back Pain. thomas 23:13 The patient presents with pain that is acute, with no known mechanism of injury, that thomas is chronic, with no known mechanism of injury. The symptoms are located in the low back. Onset: The symptoms/episode began/occurred 5 day(s) ago. The pain does not radiate. Associated signs and symptoms: The patient has no apparent associated signs or symptoms. Modifying factors: The patient symptoms are alleviated by nothing, the patient symptoms are aggravated by coughing, lifting, movement. Severity of symptoms: At their worst the symptoms were moderate, in the emergency department the symptoms are unchanged. The patient has experienced similar episodes in the past, multiple times. Historical: - Allergies: 21:08 Azithromycin; jh5 21:08 Bactrim; jh5 21:08 butorphanol; jh5 21:08 Fentanyl; jh5 21:08 Reglan; jh5 21:08 Sulfa (Sulfonamide Antibiotics); jh5 21:08 TRIMETHOPRIM; jh5 - PMHx: 21:08 Anxiety; Atrial fibrillation; Bipolar disorder; esophageal varicies; Hepatitis; HIV jh5 positive; Hypertensive disorder; Migraine; panic attack; - Immunization history:: Adult Immunizations up to date. - Social history:: Smoking status: . - Family history:: not pertinent. ROS: 23:13 Constitutional: Negative for fever, chills, and weight loss, Eyes: Negative for injury, thomas pain, redness, and discharge, ENT: Negative for injury, pain, and discharge, Neck: Negative for injury, pain, and swelling, Cardiovascular: Negative for chest pain, palpitations, and edema, Respiratory: Negative for shortness of breath, cough, wheezing, and pleuritic chest pain, Abdomen/GI: Negative for abdominal pain, nausea, vomiting, diarrhea, and constipation, : Negative for injury, bleeding, discharge, and swelling, MS/Extremity: Negative for injury and deformity, Skin: Negative for injury, rash, and discoloration, Neuro: Negative for headache, weakness, numbness, tingling, and seizure, Psych: Negative for depression, anxiety, suicide ideation, homicidal ideation, and hallucinations, Allergy/Immunology: Negative for hives, rash, and allergies, Endocrine: Negative for neck swelling, polydipsia, polyuria, polyphagia, and marked weight changes, Hematologic/Lymphatic: Negative for swollen nodes, abnormal bleeding, and unusual bruising. 23:13 Back: Positive for pain at rest, pain with movement, Negative for injury or acute deformity. 23:13 Skin: Negative for abrasions, rash. Exam: 23:13 Constitutional: This is a well developed, well nourished patient who is awake, alert, thomas and in no acute distress. Head/Face: Normocephalic, atraumatic. Eyes: Pupils equal round and reactive to light, extra-ocular motions intact. Lids and lashes normal. Conjunctiva and sclera are non-icteric and not injected. Cornea within normal limits. Periorbital areas with no swelling, redness, or edema. ENT: Nares patent. No nasal discharge, no septal abnormalities noted. Tympanic membranes are normal and external auditory canals are clear. Oropharynx with no redness, swelling, or masses, exudates, or evidence of obstruction, uvula midline. Mucous membranes moist. Neck: Trachea midline, no thyromegaly or masses palpated, and no cervical lymphadenopathy. Supple, full range of motion without nuchal rigidity, or vertebral point tenderness. No Meningismus. Chest/axilla: Normal chest wall appearance and motion. Nontender with no deformity. No lesions are appreciated. Cardiovascular: Regular rate and rhythm with a normal S1 and S2. No gallops, murmurs, or rubs. Normal PMI, no JVD. No pulse deficits. Respiratory: Lungs have equal breath sounds bilaterally, clear to auscultation and percussion. No rales, rhonchi or wheezes noted. No increased work of breathing, no retractions or nasal flaring. Abdomen/GI: Soft, non-tender, with normal bowel sounds. No distension or tympany. No guarding or rebound. No evidence of tenderness throughout. Female : Normal external genitalia. Skin: Warm, dry with normal turgor. Normal color with no rashes, no lesions, and no evidence of cellulitis. MS/ Extremity: Pulses equal, no cyanosis. Neurovascular intact. Full, normal range of motion. Neuro: Awake and alert, GCS 15, oriented to person, place, time, and situation. Cranial nerves II-XII grossly intact. Motor strength 5/5 in all extremities. Sensory grossly intact. Cerebellar exam normal. Normal gait. Psych: Awake, alert, with orientation to person, place and time. Behavior, mood, and affect are within normal limits. 23:13 Back: pain, that is mild, that is moderate, ROM is painful, normal spinal alignment noted, CVA tenderness, that is mild, muscle spasm, is appreciated in the mid back area, left low back, left mid back and right low back. Vital Signs: 21:07 BP 198 / 100; Pulse 70; Resp 18; Temp 98.6; Pulse Ox 96% ; Weight 97.52 kg; Height 5 5 ft. 8 in. (172.72 cm); Pain 10/10; 21:07 Body Mass Index 32.69 (97.52 kg, 172.72 cm) [facility] er MDM: 21:13 Patient medically screened. [facility] 23:17 Differential diagnosis: chronic back pain, Fatigue Fracture Hydronephrosis Obesity thomas Osteoarthritis Osteomalacia Osteoporosis Pyelonephritis Renal Infarction ruptured disc, sprain, Ureterolithiasis. Data reviewed: vital signs, nurses notes. Consideration of Admission/Observation Patient was admitted/placed on observation. Escalation of care including admission/observation considered. Test considered but Not performed: Other Details pt left before test. Care significantly affected by the following chronic conditions: Diabetes, Hypertension, Obesity, a fib, anxiety. Administered Medications: No medications were administered Disposition Summary: 07/05/22 23:56 Discharge Ordered Location: Home Condition: Stable(07/05/22 23:56) Diagnosis - Chronic pain syndrome Forms: - Medication Reconciliation Form - Thank You Letter - Antibiotic Education kl - Prescription Opioid Use Signatures: Paige De Jesus RN RN kl Anderson, Corey, MD MD cha Rees, Jessica, RN RN 5 Corrections: (The following items were deleted from the chart) 23:12 22:05 after being seen by provider erik guzman 23:12 22:05 (see nurse's notes) erik guzman 23:54 23:20 after being seen by provider thomas valencia 23:54 23:20 an acute exacerbation thomas kl 23:54 23:20 are unchanged thomas kl 23:54 23:20 unknown thomas kl 23:54 23:20 Stable thomas kl 23:54 23:20 Low back pain [facility] kl 23:54 23:20 Essential (primary) hypertension thomas kl
== END 2022-07-05 23:56 | disposition home or self-care (01) ==
LOC: ER 21:01
DX: G89.4 Chronic pain syndrome (principal)

== ENCOUNTER 2022-07-06 00:48 | Emergency (ER) | payer OTHER ==
--- OUTSIDE RECORDS SUMMARY | 2022-07-06 01:10 | XMS REPORT | Continuity of Care Document ---
:1955 Author Organization [facility] t Address [address] [place] [address] Care Team Providers Name Role Phone Urmila [...] Attending Clinician Unavailable Robbi Bal Attending Clinician [facility] Attending Clinician Unavailable Isaias Whiteside RN Attending Clinician Unavailable TOMY MARIE Attending Clinician Unavailable Reilly Means MD Attending Clinician Ofe Shields MD Attending Clinician Tomy Marie MD Attending Clinician Doctor Unassigned, [place] Attending Clinician Unavailable Bill COLES Attending Clinician Unavailable Bill Rose Attending Clinician CHARITY MCALLISTER Attending Clinician Unavailable Charity Mcallister MD Attending Clinician GADIEL KOEHLER Attending Clinician Unavailable Mike Lund Attending Clinician Unavailable NIKOLAI REEVES Attending Clinician Unavailable Eliseo Arce MD Attending Clinician Carol Ann IZQUIERDO, Sarai Lieberman Attending Clinician [phone] Ashly Pelletier MA Attending Clinician Unavailable Dagoberto Bass MD Attending Clinician [place] Evangelista Attending Clinician Lab, [facility] Pob I Attending Clinician Unavailable Monica Rodas MA Attending Clinician Unavailable Agustina Ortiz MA Attending Clinician Unavailable Rody Maguire RN Attending Clinician Unavailable Remigio MD, Saraswathi V. Attending Clinician HEMATPOUR, BEVERLY Attending Clinician Unavailable Caridad SALGUERO, Gloria Attending Clinician Xiao RAMIREZ, Michael Corbin Attending Clinician Unavailable Team, [facility] Attending Clinician UnavailDO PORSHA Newell Attending Clinician Unavailable Gadiel Koehler MD Attending Clinician Tyrone JENKINS, Eveline Sierra Attending Clinician Eladio Colorado RN Attending Clinician Unavailable Geraldine SALGUERO, Leyda Attending Clinician [phone] Selvin RAMIREZ, Stefanie Attending Clinician Unavailable [...] Number Effective Date Expiration Date S gabino [facility] COMM[facility] PLAN [id number] 2012 STAR PLUS OON 00:00:00 [facility] [id number] 2019 DUAL COMPLETE HMO 00:00:00 [facility] [id number] 2019 PLUS 00:00:00 [facility] [id number] 2019 [facility] [place] STAR 00:00:00 [employer] MEDICARE ADV [id number] 2019 2019 00:00:00 00:00:00 Problems Condition Condition Condition Status Onset Resolution Last Treating Co mments Source Name Details Category Date Date Treatment Clinician Date Dyspnea, Dyspnea, Disease Active Unive rs unspecifie unspecifie 02-11 it y of d type d type 00:00: [place] [address] Medical Branch Gastropare Gastropare Disease Active Overview : Methodi sis sis 4-[address] 00:00: [facility] note l might be different from the original. Added automatic ally from request for surgery [id number] Dysphagia Dysphagia Disease Active Overview: Methodi 4-[address] 00:00: g [facility] 00 note l might be different from the original. Added automatic ally from request for surgery [id number] CCL / EPS CCL / EPS Diagnosis Active 2020-10-15 Get PVI PVI 3-30 17:07:00 l ABLATION ABLATION 00:00: Patel n W/ CARTO / W/ CARTO / 00 GA / T GA / T Active 08/19/2020 [facility] Food Food Disease Active 2019-05 [...] [facility] hoxazole 1-25 Clear 00:00: Garcia 00 [facility] trimetho DA Active SV [facility] prim 1-25 Clear 00:00: Garcia [facility] codeine DA Active SV N/V [facility] 1-25 Clear 00:00: Garcia [facility] Metoclop Propensi Active [place] ramide ty [...] [facility] Natural father Other - see comments [facility] Natural father Coronary Heart [facility] [place] Disease [facility] mother [facility] Social History Social Habit Start Date Stop Date Quantity Comments Source History SDOH S[facility]ism Alcohol Frequency Hospita l History SDOH [facility]ism Alcohol Std Drinks Hospit al History SDVT [facility] Alcohol Binge Hospital Exposure to 2022-04-30 2022-05-10 Yes University of SARS-CoV-2 (event) 00:00:00 10:25:00 [facility] Tobacco use and 2022-02-11 2022-02-11 Former smokeless Uni versity of exposure 00:00:00 00:00:00 tobacco user [facility] Tobacco Comment 2022-02-11 2022-02-11 Smokes approx 1-2 Un iversity of 00:00:00 00:00:00 cigarettes per [facility] day when she Branch smokes Alcohol intake 2020-12-08 2020-12-08 Current drinker [facility] 00:00:00 00:00:00 of [facility] (finding) Cigarettes smoked 2020-09-05 2020-09-[address] current ([facility] - [facility] Cigarette 2020-09-05 2020-09-05 [facility]ism pack-years 00:00:00 00:00:00 Hospital Alcohol Comment 2016-09-23 2016-09-23 rare [facility]ism 00:00:00 00:00:00 Hospital History of tobacco 2011-09-29 User of smokeless University of use 00:00:00 tobacco [facility] Sex Assigned At [birth year] [facility] 00:00:00 00:00:00 Smoking Status Start Date Stop Date Source Ex-smoker 2022-02-11 00:00:00 2022-02-11 00:00:00 Universi ty of [facility] Medications Ordered Filled Start Stop Current Ordering Indication Dosage Frequency Signature Comments Components Source Medication Medication Date Date Medication? Clinician (SIG) Name Name potassium 2021-05- No 10meq 10 mEq, IV Univers chloride in 07-11 Piggyback, i ty of water 10 20:00: 22:00 ONCE, 1 [place] mEq/100 mL 00 :00 dose, On Medic al RTU 10 mEq [facility] 05/10/22 at 1400, Administer over 60 Minutes, 100 mL magnesium 2021-05 No 800mg 800 mg, Uni vers oxide 07-11 Oral, ity of (MAG-OX 20:00: 19:37 ONCE, 1 [place] 400) tablet 00 :00 dose, On Medi porfirio 800 mg [facility] 05/10/22 at 1400, Routine KCL 2021-05- No 40meq 40 mEq, Univers (KLOR-CON 07-11 Oral, ity of M20) tablet 19:15: 19:37 [place]CE[place] 1 [place] 40 mEq 00 :00 dose, On Medical [facility] 05/10/22 at 1315, JOE hydralAZINE 2021-05- No 10mg 10 mg, Uni vers (APRESOLINE 07-11 Slow IV ity of ) injection 18:45: 18:42 [place] 10 mg 00 :00 ONCE, 1 Medical dose, On [facility] 05/10/22 at 1245, JOE NaCl 0.9% 2021-05- No 1000mL at 999 Uni vers (NS) bolus 07-11 mL/hr, ity of infusion 17:45: 20:00 1,000 mL, [place] 1,000 mL 00 :00 IV Medical Infusion, Branch ONCE, 1 dose, On [facility] 05/10/22 at 1145, JOE cefpodoxime 2021-05- Yes [id number] 100mg Take 1 Univers 100 mg 2-17 12-25 tablet by ity of tablet 00:00: 05:59 mouth in [place] 00 :00 the [facility] Branch and 1 tablet in the evening. Do all this for 7 days. cefpodoxime 2021-05- Yes [id number] 100mg Take 1 Univers 100 mg 2-17 12-25 tablet by ity of tablet 00:00: 05:59 mouth in [place] 00 :[address] [facility] morning Branch and 1 tablet in the evening. Do all this for 7 days. cefpodoxime 2021-05- Yes [id number] 100mg Take 1 Univers 100 mg 2-17 [...] Infusion, Medical ONCE, 1 Branch dose, On [facility] 05/06/22 at 1800, JOE ketorolac 2021-05 No 15mg 15 mg, Unive rs (TORADOL) 2-15 12-15 Slow IV ity of injection 22:00: 22:19 Push, [place] 15 mg 00 :00 ONCE, 1 Medical dose, On Branch [facility] 05/06/22 at 1600, JOE NaCl 0.9% 2021-05- No 1000mL at 999 Uni vers (NS) bolus 2-15 12-15 mL/hr, ity of infusion 22:00: 23:41 1,000 mL, [place] 1,000 mL 00 :00 IV Medical Infusion, Branch ONCE, 1 dose, On [facility] 05/06/22 at 1600, JOE ondansetron 2021-05- No 8mg 8 mg, Slow Univers (ZOFRAN 2-15 12-15 IV Push, ity of (PF)) 21:15: 22:19 ONCE, 1 [place] injection 8 00 :00 dose, On Medi porfirio mg [place] 05/06/22 at 1515, JOE ondansetron 2021-05 Yes [id number] 1-2 U nivers 4 mg tablet 2-15 tablets ity o f 00:00: every 8 [place] 00 hours as Medical needed for Branch nausea benzonatate 2021-05 Yes [id number] 200mg Take 1 Univers 200 mg 2-15 capsule by ity of capsule 00:00: mouth 3 [place] 00 (three) Medical times Branch daily as needed for Cough. albuterol 2021-05 Yes [id number] 2{puff} Inhale 2 Univers 90 2-15 Puffs ity of mcg/actuati 00:00: every 4 [place] on inhaler 00 (four) Medical hours as Branch needed for Wheezing or Shortness of Breath. butalbital- 2021-05 Yes [id number] 1{tbl} Take 1 Univers acetaminoph 2-15 tablet by ity of en-caff 00:00: mouth [place] 50-325-40 00 every 4 Medical mg tablet (four) Branch hours as needed (headache) . ondansetron 2021-05 Yes [id number] 1-2 U nivers 4 mg tablet 2-15 tablets ity o f 00:00: every 8 [place] 00 hours as Medical needed for Branch nausea benzonatate 2021-05 Yes [id number] 200mg Take 1 Univers 200 mg 2-15 capsule by ity of capsule 00:00: mouth 3 [place] 00 (three) Medical times Branch daily as needed for Cough. albuterol 2021-05 Yes [id number] 2{puff} Inhale 2 Univers 90 2-15 Puffs ity of mcg/actuati 00:00: every 4 [place] on inhaler 00 (four) Medical hours as Branch needed for Wheezing or Shortness of Breath. butalbital- 2021-05 Yes [id number] 1{tbl} Take 1 Univers acetaminoph 2-15 tablet by ity of en-caff 00:00: mouth [place] 50-325-40 00 every 4 Medical mg tablet (four) Branch hours as needed (headache) . ondansetron 2021-05 Yes [id number] 1-2 U nivers 4 mg tablet 2-15 tablets ity o f 00:00: every 8 [place] 00 hours as Medical needed for Branch nausea benzonatate 2021-05 Yes [id number] 200mg Take 1 Univers 200 mg 2-15 capsule by ity of capsule 00:00: mouth 3 [place] 00 (three) Medical times Branch daily as needed for Cough. albuterol 2021-05 Yes [id number] 2{puff} Inhale 2 Univers 90 2-15 Puffs ity of mcg/actuati 00:00: every 4 [place] on inhaler 00 (four) Medical hours as Branch needed for Wheezing or Shortness of Breath. butalbital- 2021-05 Yes [id number] 1{tbl} Take 1 Univers acetaminoph 2-15 tablet by ity of en-caff 00:00: mouth [place] 50-325-40 00 every 4 Medical mg tablet (four) Branch hours as needed (headache) . ondansetron 2021-05 Yes [id number] 1-2 U nivers 4 mg tablet 2-15 tablets ity o f 00:00: every 8 [place] 00 hours as Medical needed for Branch nausea benzonatate 2021-05 Yes [id number] 200mg Take 1 Univers 200 mg 2-15 capsule by ity of capsule 00:00: mouth 3 [place] 00 (three) Medical times Branch daily as needed for Cough. albuterol 2021-05 Yes [id number] 2{puff} Inhale 2 Univers 90 2-15 Puffs ity of mcg/actuati 00:00: every 4 [place] on inhaler 00 (four) Medical hours as Branch needed for Wheezing or Shortness of Breath. butalbital- 2021-05 Yes [id number] 1{tbl} Take 1 Univers acetaminoph 2-15 tablet by ity of en-caff 00:00: mouth [place] 50-325-40 00 every 4 Medical mg tablet (four) Branch hours as needed (headache) . ondansetron 2021-05 Yes [id number] 1-2 U nivers 4 mg tablet 2-15 tablets ity o f 00:00: every 8 [place] 00 hours as Medical needed for Branch nausea benzonatate 2021-05 Yes [id number] 200mg Take 1 Univers 200 mg 2-15 capsule by ity of capsule 00:00: mouth 3 [place] 00 (three) Medical times Branch daily as needed for Cough. albuterol 2021-05 Yes [id number] 2{puff} Inhale 2 Univers 90 2-15 Puffs ity of mcg/actuati 00:00: every 4 [place] on inhaler 00 (four) Medical hours as Branch needed for Wheezing or Shortness of Breath. butalbital- 2021-05 Yes [id number] 1{tbl} Take 1 Univers acetaminoph 2-15 tablet by ity of en-caff 00:00: mouth [place] 50-325-40 00 every 4 Medical mg tablet (four) Branch hours as needed (headache) . ondansetron 2021-05 Yes [id number] 1-2 U nivers 4 mg tablet 2-15 tablets ity o f 00:00: every 8 [place] 00 hours as Medical needed for Branch nausea benzonatate 2021-05 Yes [id number] 200mg Take 1 Univers 200 mg 2-15 capsule by ity of capsule 00:00: mouth 3 [place] 00 (three) Medical times Branch daily as needed for Cough. albuterol 2021-05 Yes [id number] 2{puff} Inhale 2 Univers 90 2-15 Puffs ity of mcg/actuati 00:00: every 4 [place] on inhaler 00 (four) Medical hours as Branch needed for Wheezing or Shortness of Breath. butalbital- 2021-05 Yes [id number] 1{tbl} Take 1 Univers acetaminoph 2-15 tablet by ity of en-caff 00:00: mouth [place] 50-325-40 00 every 4 Medical mg tablet (four) Branch hours as needed (headache) . nirmatrelvi 2021-05- Yes [id number] 2{tbl} Take 2 Univers r-ritonavir 2-15 12-21 tablets by i ty of (PAXLOVID, 00:00: 05:59 mouth [place] EUA,) 300 00 :00 the Medical mg (150 mg morning Branch x 2)-100 mg and 2 tablet tablets in the evening. Do all this for 5 days. nirmatrelvi 2021-05- Yes [id number] 2{tbl} Take 2 Univers r-ritonavir 2-15 12-21 tablets by i ty of (PAXLOVID, 00:00: 05:59 mouth [place] EUA,) 300 00 :00 the Medical mg (150 mg morning Branch x 2)-100 mg and 2 tablet tablets in the evening. Do all this for 5 days. nirmatrelvi 2021-05- Yes [id number] 2{tbl} Take 2 Univers r-ritonavir 2-15 12-21 tablets by i ty of (PAXLOVID, 00:00: 05:59 [place] EUA,) 300 00 :00 the Medical mg (150 mg morning Branch x 2)-100 mg and 2 tablet tablets in the evening. Do all this for 5 days. nirmatrelvi 2021-05- Yes [id number] 2{tbl} Take 2 Univers r-ritonavir 2-15 - [...] 04/22/22 at 1645, Routine amoxicillin 2021-05 Yes [id number] 1{tbl} Take 1 Univers -clavulanat 2- [id number] tablet by i ty of e 875-125 00:00: mouth [place] mg per 00 every 12 Medical tablet (twelve) Branch hours. ondansetron 2021-05 Yes [id number] 4mg Take 1 Univers 4 mg 2- [id number] tablet by ity of disintegrat 00:00: mouth [place] ing tablet 00 every 8 Medica l (eight) Branch hours as needed for Nausea and Vomiting (N/V). amoxicillin 2021-05 Yes [id number] 1{tbl} Take 1 Univers -clavulanat 2- [id number] tablet by i ty of e 875-125 00:00: mouth [place] mg per 00 every 12 Medical tablet (twelve) Branch hours. ondansetron 2021-05 Yes [id number] 4mg Take 1 Univers 4 mg 2-01 [id number] tablet by ity of disintegrat 00:00: mouth [place] ing tablet 00 every 8 Medica l (eight) Branch hours as needed for Nausea and Vomiting (N/V). amoxicillin 2021-05 Yes [id number] 1{tbl} Take 1 Univers -clavulanat 2-01 [id number] tablet by i ty of e 875-125 00:00: mouth [place] mg per 00 every 12 Medical tablet (twelve) Branch hours. ondansetron 2021-05 Yes [id number] 4mg Take 1 Univers 4 mg 2-01 [id number] tablet by ity of disintegrat 00:00: mouth [place] ing tablet 00 every 8 Medica l (eight) Branch hours as needed for Nausea and Vomiting (N/V). amoxicillin 2021-05 Yes [id number] 1{tbl} Take 1 Univers -clavulanat 2-01 [id number] tablet by i ty of e 875-125 00:00: mouth [place] mg per 00 every 12 Medical tablet (twelve) Branch hours. ondansetron 2021-05 Yes [id number] 4mg Take 1 Univers 4 mg 2-01 [id number] tablet by ity of disintegrat 00:00: mouth [place] ing tablet 00 every 8 Medica l (eight) Branch hours as needed for Nausea and Vomiting (N/V). amoxicillin 2021-05 Yes [id number] 1{tbl} Take 1 Univers -clavulanat 2-01 [id number] tablet by i ty of e 875-125 00:00: mouth [place] mg per 00 every 12 Medical tablet (twelve) Branch hours. ondansetron 2021-05 Yes [id number] 4mg Take 1 Univers 4 mg 2- [id number] tablet by ity of disintegrat 00:00: mouth [place] ing tablet 00 every 8 Medica l (eight) Branch hours as needed for Nausea and Vomiting (N/V). amoxicillin 2021-05 Yes [id number] 1{tbl} Take 1 Univers -clavulanat 2-01 [id number] tablet by i ty of e 875-125 00:00: mouth [place] mg per 00 every 12 Medical tablet (twelve) Branch hours. ondansetron 2021-05 Yes [id number] 4mg Take 1 Univers 4 mg 2-01 [id number] tablet by ity of disintegrat 00:00: mouth [place] ing tablet 00 every 8 Medica l (eight) Branch hours as needed for Nausea and Vomiting (N/V). amoxicillin 2021-05 Yes [id number] 1{tbl} Take 1 Univers -clavulanat 2-01 [id number] tablet by i ty of e 875-125 00:00: mouth [place] mg per 00 every 12 Medical tablet (twelve) Branch hours. ondansetron 2021-05 Yes [id number] 4mg Take 1 Univers 4 mg 2-01 [id number] tablet by ity of disintegrat 00:00: mouth [place] ing tablet 00 every 8 Medica l (eight) Branch hours as needed for Nausea and Vomiting (N/V). amoxicillin 2021-05 Yes [id number] 1{tbl} Take 1 Univers -clavulanat 06-23 [id number] tablet by i ty of e 875-125 00:00: mouth [place] mg per 00 every 12 Medical tablet (twelve) Branch hours. ondansetron 2021-05 Yes [id number] 4mg Take 1 Univers 4 mg 06-23 [id number] tablet by ity of disintegrat 00:00: mouth [place] ing tablet 00 every 8 Medica l (eight) Branch hours as needed for Nausea and Vomiting (N/V). zoster 2021-05- No [id number] .5mL 0.5 mL by Univers vaccine, 0-14 10-15 9104 Intramuscu ity of recombinant 00:00: 04:59 lar route [place] (SHINGRIX, 00 :00 once now Medic al PF,) for 1 Branch injection dose. And repeat in 2-6 months zoster 2021-05- No [id number] .5mL 0.5 mL by Univers vaccine, 0-14 10-15 9104 Intramuscu ity of recombinant 00:00: 04:59 lar route [place] (SHINGRIX, 00 :00 once now Medic al PF,) for 1 Branch injection dose. And repeat in 2-6 months zoster 2021-05- No [id number] .5mL 0.5 mL by Univers vaccine, 0-14 [...] 1 mg tablet 19:28: at [place] [address] bedtime. Medical Branch traZODone 2021-0 Yes 50mg Take 50 mg Un matt 100 mg 9-27 by mouth ity of tablet 19:28: at [place] [address] bedtime. Medical Branch hydralAZINE 2021-0 Yes 25mg [...] 100 mg 04 (two) Medical tablet times [place] daily. amLODIPine 2021-0 Yes 10mg Take 10 mg U nivers (NORVASC) 9-27 by mouth ity of 10 mg 19:28: daily. [place] tablet 04 Medical Branch clonazePAM 2021-0 Yes 1mg Take 1 mg Un matt (KLONOPIN) 9-27 by mouth ity o f 1 mg tablet 19:28: at [place] [address] bedtime. Medical Branch traZODone 2021-0 Yes 50mg Take 50 mg Un matt 100 mg 9-27 by mouth ity of tablet 19:28: at [place] [address] bedtime. Medical Branch hydralAZINE 2021-0 Yes 25mg [...] 1 mg tablet 19:28: at [place] [address] bedtime. Medical Branch traZODone 2021-0 Yes 50mg Take 50 mg Un matt 100 mg 9-27 by mouth ity of tablet 19:28: at [place] [address] bedtime. Medical Branch hydralAZINE 2021-0 Yes 25mg [...] 1 mg tablet 19:28: at [place] [address] bedtime. Medical Branch traZODone 2021-0 Yes 50mg Take 50 mg Un matt 100 mg 9-27 by mouth ity of tablet 19:28: at [place] [address] bedtime. Medical Branch hydralAZINE 2021-0 Yes 25mg [...] 1 mg tablet 19:28: at [place] [address] bedtime. Medical Branch traZODone 2021-0 Yes 50mg Take 50 mg Un matt 100 mg 9- by mouth ity of tablet 19:28: at [place] [address] bedtime. Medical Branch hydralAZINE 2021-0 Yes 25mg [...] 1 mg tablet 19:28: at [place] [address] bedtime. Medical Branch traZODone 2022-0 Yes 50mg Take 50 mg Un matt 100 mg 9-27 by mouth ity of tablet 19:28: at [place] [address] bedtime. Medical Branch hydralAZINE 2-0 Yes 25mg [...] 1 mg tablet 19:28: at [place] [address] bedtime. Medical Branch traZODone 2-0 Yes 50mg Take 50 mg Un matt 100 mg 9-27 by mouth ity of tablet 19:28: at [place] [address] bedtime. Medical Branch hydralAZINE 2021-0 Yes 25mg [...] 1 mg tablet 19:28: at [place] [address] bedtime. Medical Branch traZODone 2022-0 Yes 50mg Take 50 mg Un matt 100 mg 9-27 by mouth ity of tablet 19:28: at [place] [address] bedtime. Medical Branch hydralAZINE 2-0 Yes 25mg [...] 1 mg tablet 19:28: at [place] [address] bedtime. Medical Branch traZODone 2-0 Yes 50mg Take 50 mg Un matt 100 mg 9-27 by mouth ity of tablet 19:28: at [place] [address] bedtime. Medical Branch hydralAZINE 2-0 Yes 25mg [...] 1 mg tablet 19:28: at [place] [address] bedtime. Medical Branch traZODone 2021-0 Yes 50mg Take 50 mg Un matt 100 mg 9-27 by mouth ity of tablet 19:28: at [place] [address] bedtime. Medical Branch hydralAZINE 2021-0 Yes 25mg [...] 1 mg tablet 19:28: at [place] [address] bedtime. Medical Branch traZODone 2021-0 Yes 50mg Take 50 mg Un matt 100 mg 9-27 by mouth ity of tablet 19:28: at [place] [address] bedtime. Medical Branch hydralAZINE 2021-0 Yes 25mg [...] 1 mg tablet 19:28: at [place] [address] bedtime. Medical Branch traZODone 2-0 Yes 50mg Take 50 mg Un matt 100 mg 9-27 by mouth ity of tablet 19:28: at [place] [address] bedtime. Medical Branch hydralAZINE 2-0 Yes 25mg [...] 1 mg tablet 19:28: at [place] [address] bedtime. Medical Branch traZODone 2021-0 Yes 50mg Take 50 mg Un matt 100 mg 9-27 by mouth ity of tablet 19:28: at [place] [address] bedtime. Medical Branch hydralAZINE 2021-0 Yes 25mg [...] 1 mg tablet 19:28: at [place] [address] bedtime. Medical Branch traZODone 2021-0 Yes 50mg Take 50 mg Un matt 100 mg 9-27 by mouth ity of tablet 19:28: at [place] [address] bedtime. Medical Branch hydralAZINE 2021-0 Yes 25mg [...] 1 mg tablet 19:28: at [place] [address] bedtime. Medical Branch traZODone 2021-0 Yes 50mg Take 50 mg Un matt 100 mg 9-27 by mouth ity of tablet 19:28: at [place] [address] bedtime. Medical Branch hydralAZINE 2021-0 Yes 25mg [...] 1 mg tablet 19:28: at [place] [address] bedtime. Medical Branch traZODone Yes 50mg Take 50 mg Un matt 100 mg 02-16 by mouth ity of tablet 19:28: at [place] [address] bedtime. Medical Branch cefpodoxime 2021- No [id number] 200mg Take 1 Univers 200 mg 02-16 tablet by ity of tablet 00:00: 04:59 mouth in [place] 00 :00 the Medical morning Branch and 1 tablet in the evening. Do all this for 3 days. cefpodoxime 2021- No [id number] 200mg Take 1 Univers 200 mg 02-16 [...] (MYCOLOG) 19:00: dose on [place] cream 00 [facility] Medical 02/11/22 at Branch 1400, Until Discontinu ed, Routine busPIRone 202-0 Yes 30mg 30 mg, Univer s (BUSPAR) 02-11 Oral, BID, ity o f tablet 30 18:00: First dose [place] mg 00 on [facility] Medical 02/11/22 at Branch 1300, Until Discontinu ed, Routine raltegravir 2021-0 Yes 400mg 400 mg, Un matt (ISENTRESS) 02-11 Oral, BID, it y of tablet 400 18:00: First dose [place] mg 00 on [facility] Medical 02/11/22 at Branch 1300, Until Discontinu ed, JOE metoprolol 2021-0 Yes 100mg 100 mg, Uni vers tartrate 02-11 Oral, BID, ity o f (LOPRESSOR) 18:00: First dose [place] tablet 100 00 on [facility] mg 02/11/22 at Branch 1300, Until Discontinu ed, Routine lisinopriL 2021-0 Yes 40mg 40 mg, Unive rs (PRINIVIL,Z 02-11 Oral, BID, it y of ESTRIL) 18:00: First [place] tablet 40 00 on [facility] mg 02/11/22 at Branch 1300, Until Discontinu ed, Routine emtricitabi 2021-0 Yes 1{tbl} 1 tablet[facility] Oral, ity of r alafen 18:00: DAILY, [place] (DESCOVY) 00 First dose Medi porfirio tablet 1 on [facility] tablet 02/11/22 at 1300, Until Discontinu ed, Routine ipratropium 2021-0 Yes .5mg 0.5 mg, Uni vers (ATROVENT) 02-11 Inhalation ity of 0.02 % 17:57: , MERY, [place] nebulizer 10 Starting Medica l solution on [facility] Branch 0.5 mg 02/11/22 at 1257, [...] Medical (after Branch last modificati on) on [facility] 02/11/22 at 1230, Until Discontinu ed, Routine HYDROcodone 2021- No 1{tbl} 1 tablet, Univers -acetaminop 02-11 Oral, ity of hen (NORCO 14:11: 17:37 Q6HPRN, [place] as 5) 5-325 mg 03 :24 Starting Medi porfirio tablet 1 on [facility] Branch tablet 02/11/22 at 0911, Until Tue02/12/22 at 1237, Routine, Pain (scale 7-10) melatonin Yes 3mg 3 mg, Univers (MELATIN) 02-11 Oral, ity of tablet 3 mg 14:08: QHSPRN, [place] 17 Starting Medical on [facility] Branch 02/11/22 at 0908, Until Discontinu ed, Routine, Insomnia acetaminoph 2021- No 1{tbl} 1 tablet, Univers en-codeine 02-11 Oral, ity of (TYLENOL 14:06: 17:37 Q6HPN, [place] #3) 300-30 19 :24 Starting Medic al mg tablet 1 on [facility] Branch tablet 02/11/22 at 0906, Until Tue02/12/22 at 1237, Routine, Pain (scale 4-6) sennosides- Yes 1{tbl} 1 tablet, Univers docusate 02-11 Oral, ity of sodium 14:06: QDAILYPRN, [place] (SENOKOT-S) 09 Starting Medi porfirio 8.6-50 mg on [facility] Branch per tablet 02/11/22 at 1 [...] mg 09:10: daily. [place] tablet 54 [facility] amLODIPine 0 Yes 10mg Take 10 mg U nivers (NORVASC) 02-11 by mouth ity of 10 mg 09:10: daily. [place] tablet [address] [facility] Branch piperacilli 2021- No 3.375g 3.375 g, [...] of therapy: 72 hours iopamidol 2- No [id number] 60mL 60 mL, [facility] (ISOVUE 02-11 Intravenou [...] 00 :00 dose, On Medi porfirio mg [facility] 02/11/22 at 0045, JOE acetaminoph 2021- No 975mg 975 mg, U nivers en 02-11 Oral, ity of (TYLENOL) 05:15: 04:19 [place]CE, 1 [place] 975 00 :00 dose, On Medic al mg [facility] 02/11/22 at 0015, JOE emtricitabi 0 Yes [id number] Take one Univers ne-tenofovi 9-12 po daily ity of r alafen 00:00: [place] (DESCOVY) 00 Medical tablet Branch emtricitabi 0 Yes [id number] Take one [facility] ne-tenofovi 9-12 po daily ity of r alafen 00:00: [place] (DESCOVY) Medical tablet Branch emtricitabi 0 Yes [id number] Take one [facility] ne-tenofovi 9-12 po daily ity of r alafen 00:00: [place] (DESCOVY) 00 Medical tablet Branch emtricitabi 0 Yes [id number] Take one [facility] ne-tenofovi 9-12 po daily ity of r alafen 00:00: [place] (DESCOVY) 00 Medical tablet Branch emtricitabi Yes [id number] Take one [facility] ne-tenofovi 9-12 po daily ity of r alafen 00:00: [place] (DESCOVY) 00 Medical tablet Branch emtricita Yes [id number] Take one [facility] ne-tenofovi 9-12 po daily ity of r alafen 00:00: [place] (DESCOVY) 00 Medical tablet Branch emtricita Yes [id number] Take one [facility] ne-tenofovi 9-12 po daily ity of r alafen 00:00: [place] (DESCOVY) 00 Medical tablet Branch emtricita Yes [id number] Take one [facility] ne-tenofovi 9-12 po daily ity of r alafen 00:00: [place] (DESCOVY) 00 Medical tablet Branch emtricita Yes [id number] Take one [facility] ne-tenofovi 9-12 po daily ity of r alafen 00:00: [place] (DESCOVY) 00 Medical tablet Branch [facility] [id number] Take one [facility] ne-tenofovi 9-12 po daily ity of r alafen 00:00: [place] (DESCOVY) 00 Medical tablet Branch [facility] [id number] Take one [facility] ne-tenofovi 9-12 po daily ity of r alafen 00:00: [place] (DESCOVY) 00 Medical tablet Branch emtricita Yes [id number] Take one [facility] ne-tenofovi 9-12 po daily ity of r alafen 00:00: [place] (DESCOVY) 00 Medical tablet Branch emtricita Yes [id number] Take one [facility] ne-tenofovi 9-12 po daily ity of r alafen 00:00: [place] (DESCOVY) 00 Medical tablet Branch emtricita Yes [id number] Take one [facility] ne-tenofovi 9-12 po daily ity of r alafen 00:00: [place] (DESCOVY) 00 Medical tablet Branch emtricita Yes [id number] Take one [facility] ne-tenofovi 9-12 po daily ity of r alafen 00:00: [place] (DESCOVY) 00 Medical tablet Branch emtricitabi 2021-0 Yes [id number] Take one [facility] ne-tenofovi 9-12 po daily ity of r alafen 00:00: [place] (DESCOVY) Medical tablet Branch emtricitabi 2021-0 Yes [id number] Take one Univers ne-tenofovi 9-12 po daily ity of r alafen 00:00: [place] (DESCOVY) Medical tablet Branch naproxen 2021-0 Yes [id number] 500mg Take 1 U nivers (NAPROSYN) 7-24 tablet by ity of 500 mg 00:00: mouth in [place] tablet 00 the Medical morning Branch and 1 tablet in the evening. Take with meals. methocarbam 2021-0 Yes [id number] 500mg Take 1 [facility] oL 500 mg 7-24 tablet by ity o f tablet 00:00: mouth 4 [place] [address] ([facility]) [facility] times [place] daily. naproxen 2021-0 Yes [id number] 500mg Take 1 U nivers (NAPROSYN) 7-24 tablet by ity of 500 mg 00:00: mouth in [place] tablet 00 the Medical morning Branch and 1 tablet in the evening. Take with meals. methocarbam 2021-0 Yes [id number] 500mg Take 1 [facility] oL 500 mg 7-24 tablet by ity o f tablet 00:00: mouth 4 [place] ([facility]) [facility] times [place] daily. naproxen 2021-0 Yes [id number] 500mg Take 1 U nivers (NAPROSYN) 7-24 tablet by ity of 500 mg 00:00: mouth in [place] tablet 00 the Medical morning Branch and 1 tablet in the evening. Take with meals. methocarbam 2021-0 Yes [id number] 500mg Take 1 [facility] oL 500 mg 7-24 tablet by ity o f tablet 00:00: mouth 4 [place] ([facility]) [facility] times [place] daily. naproxen 2021-0 2022- No [id number] 500mg Take 1 [facility] (NAPROSYN) 7-24 10-14 tablet by ity of 500 mg 00:00: 00:00 mouth in [place] tablet 00 :00 the Medical morning Branch and 1 tablet in the evening. Take with meals. methocarbam 2021-0 2022- No [id number] 500mg Take 1 [facility] oL 500 mg 7-24 10-14 tablet by ity of tablet 00:00: 00:00 mouth 4 [place] 00 :00 (four) Medical times Branch daily. naproxen 2021- No [id number] 500mg Take 1 [facility] (NAPROSYN) 12-13 tablet by ity of 500 mg 00:00: 00:00 mouth in [place] tablet 00 :00 the Medical morning Branch and 1 tablet in the evening. Take with meals. methocarbam 2021- No [id number] 500mg Take 1 [facility] oL 500 mg [...] daily. Branch traZODONE 2021- No Take by [facility] ers (DESYREL) 11-20 mouth at ity o f 10 mg/mL 09:10: 00:00 [place]time. [place] oral 28 :00 Medical suspension Branch hydralAZINE Yes 25mg Take 25 mg [facility] (APRESOLINE 11-20 by mouth ity of ) 25 mg 08:47: daily. [place] tablet 47 Medical Branch cephALEXin 2021- No [id number] 500mg Take 1 [facility] (KEFLEX) 10-24 capsule [...] Indication s: acute pain buPROPion 0 Yes [id number] 150mg Take 1 U nivers XL 4-12 tablet by ity of (WELLBUTRIN 00:00: mouth [place] XL) 150 mg 00 daily. Medical 24 hr Branch tablet busPIRone 2021-0 Yes [id number] 30mg Take 1 Un matt 30 mg 4-12 tablet by ity of tablet 00:00: mouth 2 [place] 00 (two) Medical times Branch daily. SERTraline 2021-0 Yes [id number] 200mg Take 2 [facility] 100 mg 4-12 tablets by ity of tablet 00:00: mouth [place] 00 daily. Medical Branch buPROPion 0 Yes [id number] 150mg Take 1 U nivers XL 4-12 tablet by ity of (WELLBUTRIN 00:00: mouth [place] XL) 150 mg 00 daily. Medical 24 hr Branch tablet busPIRone 2021-0 Yes [id number] 30mg Take 1 Un matt 30 mg 4-12 tablet by ity of tablet 00:00: mouth 2 [place] 00 (two) Medical times Branch daily. SERTraline 2021-0 Yes [id number] 200mg Take 2 [facility] 100 mg 4-12 tablets by ity of tablet 00:00: mouth [place] 00 daily. Medical Branch buPROPion 2021-0 Yes [id number] 150mg Take 1 U nivers XL 4-12 tablet by ity of (WELLBUTRIN 00:00: mouth [place] XL) 150 mg 00 daily. Medical 24 hr Branch tablet busPIRone 2021-0 Yes [id number] 30mg Take 1 Un matt 30 mg 4-12 tablet by ity of tablet 00:00: mouth 2 [place] 00 (two) Medical times Branch daily. SERTraline 2021-0 Yes [id number] 200mg Take 2 [facility] 100 mg 4-12 tablets by ity of tablet 00:00: mouth [place] 00 daily. Medical Branch buPROPion 2021-0 Yes [id number] 150mg Take 1 U nivers XL 4-12 tablet by ity of (WELLBUTRIN 00:00: mouth [place] XL) 150 mg 00 daily. Medical 24 hr Branch tablet busPIRone 2021-0 Yes [id number] 30mg Take 1 Un matt 30 mg 4-12 tablet by ity of tablet 00:00: mouth 2 [place] 00 (two) Medical times Branch daily. SERTraline 0 Yes [id number] 200mg Take 2 [facility] 100 mg 4-12 tablets by ity of tablet 00:00: mouth [place] 00 daily. Medical Branch buPROPion 0 Yes [id number] 150mg Take 1 U nivers XL 4-12 tablet by ity of (WELLBUTRIN 00:00: mouth [place] XL) 150 mg 00 daily. Medical 24 hr Branch tablet busPIRone 2021-0 Yes [id number] 30mg Take 1 Un matt 30 mg 4-12 tablet by ity of tablet 00:00: mouth 2 (two) Medical times Branch daily. SERTraline 0 Yes [id number] 200mg Take 2 [facility] 100 mg 4-12 tablets by ity of tablet 00:00: mouth [place] 00 daily. Medical Branch buPROPion 0 Yes [id number] 150mg Take 1 U nivers XL 4-12 tablet by ity of (WELLBUTRIN 00:00: mouth [place] XL) 150 mg 00 daily. Medical 24 hr Branch tablet busPIRone 2021-0 Yes [id number] 30mg Take 1 Un matt 30 mg 4-12 tablet by ity of tablet 00:00: mouth 2 00 (two) Medical times Branch daily. SERTraline 2021-0 Yes [id number] 200mg Take 2 [facility] 100 mg 4-12 tablets by ity of tablet 00:00: mouth [place] 00 daily. Medical Branch buPROPion 2021-0 Yes [id number] 150mg Take 1 U nivers XL 4-12 tablet by ity of (WELLBUTRIN 00:00: mouth [place] XL) 150 mg 00 daily. Medical 24 hr Branch tablet busPIRone 2021-0 Yes [id number] 30mg Take 1 Un matt 30 mg 4-12 tablet by ity of tablet 00:00: mouth 2 00 (two) Medical times Branch daily. SERTraline 2021-0 Yes [id number] 200mg Take 2 [facility] 100 mg 4-12 tablets by ity of tablet 00:00: mouth [place] 00 daily. Medical Branch buPROPion 2021-0 Yes [id number] 150mg Take 1 U nivers XL 4-12 tablet by ity of (WELLBUTRIN 00:00: mouth [place] XL) 150 mg 00 daily. Medical 24 hr Branch tablet busPIRone 2021-0 Yes [id number] 30mg Take 1 Un matt 30 mg 4-12 tablet by ity of tablet 00:00: mouth 2 [place] 00 (two) Medical times Branch daily. SERTraline 2021-0 Yes [id number] 200mg Take 2 [facility] 100 mg 4-12 tablets by ity of tablet 00:00: mouth [place] 00 daily. Medical Branch buPROPion 2021-0 Yes [id number] 150mg Take 1 U nivers XL 4-12 tablet by ity of (WELLBUTRIN 00:00: mouth [place] XL) 150 mg 00 daily. Medical 24 hr Branch tablet busPIRone 2021-0 Yes [id number] 30mg Take 1 Un matt 30 mg 4-12 tablet by ity of tablet 00:00: mouth 2 [place] (two) Medical times Branch daily. SERTraline 2021-0 Yes [id number] 200mg Take 2 [facility] 100 mg 4-12 tablets by ity of tablet 00:00: mouth [place] 00 daily. Medical Branch buPROPion 2021-0 Yes [id number] 150mg Take 1 U nivers XL 4-12 tablet by ity of (WELLBUTRIN 00:00: mouth [place] XL) 150 mg 00 daily. Medical 24 hr Branch tablet busPIRone 2021-0 Yes [id number] 30mg Take 1 Un matt 30 mg 4-12 tablet by ity of tablet 00:00: mouth 2 [place] 00 (two) Medical times Branch daily. SERTraline 2021-0 Yes [id number] 200mg Take 2 [facility] 100 mg 4-12 tablets by ity of tablet 00:00: mouth [place] 00 daily. Medical Branch buPROPion 2021-0 Yes [id number] 150mg Take 1 U nivers XL 4-12 tablet by ity of (WELLBUTRIN 00:00: mouth [place] XL) 150 mg 00 daily. Medical 24 hr Branch tablet busPIRone 2021-0 Yes [id number] 30mg Take 1 Un matt 30 mg 4-12 tablet by ity of tablet 00:00: mouth 2 [place] 00 (two) Medical times Branch daily. SERTraline 2021-0 Yes [id number] 200mg Take 2 [facility] 100 mg 4-12 tablets by ity of tablet 00:00: mouth [place] 00 daily. Medical Branch buPROPion 2021-0 Yes [id number] 150mg Take 1 U nivers XL 4-12 tablet by ity of (WELLBUTRIN 00:00: mouth [place] XL) 150 mg 00 daily. Medical 24 hr Branch tablet busPIRone 2021-0 Yes [id number] 30mg Take 1 Un matt 30 mg 4-12 tablet by ity of tablet 00:00: mouth 2 [place] 00 (two) Medical times Branch daily. SERTraline 2021-0 Yes [id number] 200mg Take 2 [facility] 100 mg 4-12 tablets by ity of tablet 00:00: mouth [place] 00 daily. Medical Branch buPROPion 2021-0 Yes [id number] 150mg Take 1 U nivers XL 4-12 tablet by ity of (WELLBUTRIN 00:00: mouth [place] XL) 150 mg 00 daily. Medical 24 hr Branch tablet busPIRone 2021-0 Yes [id number] 30mg Take 1 Un matt 30 mg 4-12 tablet by ity of tablet 00:00: mouth 2 00 (two) Medical times Branch daily. SERTraline 2021-0 Yes [id number] 200mg Take 2 [facility] 100 mg 4-12 tablets by ity of tablet 00:00: mouth [place] 00 daily. Medical Branch buPROPion 2021-0 Yes [id number] 150mg Take 1 U nivers XL 4-12 tablet by ity of (WELLBUTRIN 00:00: mouth [place] XL) 150 mg 00 daily. Medical 24 hr Branch tablet busPIRone 2021-0 Yes [id number] 30mg Take 1 Un matt 30 mg 4-12 tablet by ity of tablet 00:00: mouth 2 [place] 00 (two) Medical times Branch daily. SERTraline 2021-0 Yes [id number] 200mg Take 2 [facility] 100 mg 4-12 tablets by ity of tablet 00:00: mouth [place] 00 daily. Medical Branch buPROPion 2021-0 Yes [id number] 150mg Take 1 U nivers XL 4-12 tablet by ity of (WELLBUTRIN 00:00: mouth [place] XL) 150 mg 00 daily. Medical 24 hr Branch tablet busPIRone 2021-0 Yes [id number] 30mg Take 1 Un matt 30 mg 4-12 tablet by ity of tablet 00:00: mouth 2 [place] 00 (two) Medical times Branch daily. SERTraline 2021-0 Yes [id number] 200mg Take 2 [facility] 100 mg 4-12 tablets by ity of tablet 00:00: mouth [place] 00 daily. Medical Branch buPROPion 2021-0 Yes [id number] 150mg Take 1 U nivers XL 4-12 tablet by ity of (WELLBUTRIN 00:00: mouth [place] XL) 150 mg 00 daily. Medical 24 hr Branch tablet busPIRone 2021-0 Yes [id number] 30mg Take 1 Un matt 30 mg 4-12 tablet by ity of tablet 00:00: mouth 2 [place] 00 (two) Medical times Branch daily. SERTraline 0 Yes [id number] 200mg Take 2 [facility] 100 mg 4-12 tablets by ity of tablet 00:00: mouth [place] 00 daily. Medical Branch buPROPion 2021-0 Yes [id number] 150mg Take 1 U nivers XL 4-12 tablet by ity of (WELLBUTRIN 00:00: mouth [place] XL) 150 mg 00 daily. Medical 24 hr Branch tablet busPIRone 2021-0 Yes [id number] 30mg Take 1 Un matt 30 mg 4-12 tablet by ity of tablet 00:00: mouth 2 [place] 00 (two) Medical times Branch daily. SERTraline 2021-0 Yes [id number] 200mg Take 2 [facility] 100 mg 4-12 tablets by ity of tablet 00:00: mouth [place] 00 daily. Medical Branch buPROPion 2021-0 Yes [id number] 150mg Take 1 U nivers XL 4-12 tablet by ity of (WELLBUTRIN 00:00: mouth [place] XL) 150 mg 00 daily. Medical 24 hr Branch tablet busPIRone 2021-0 Yes [id number] 30mg Take 1 Un matt 30 mg 4-12 tablet by ity of tablet 00:00: mouth 2 [place] 00 (two) Medical times Branch daily. SERTraline 2021-0 Yes [id number] 200mg Take 2 [facility] 100 mg 4-12 tablets by ity of tablet 00:00: mouth [place] 00 daily. Medical Branch raltegravir 2022-0 Yes [id number] 400mg Take 1 [facility] (ISENTRESS) 3-28 tablet by ity of 400 mg 00:00: mouth 2 [place] tablet 00 (two) Medical times Branch daily. raltegravir 2-0 Yes [id number] 400mg Take 1 [facility] (ISENTRESS) 3-28 tablet by ity of 400 mg 00:00: mouth 2 [place] tablet 00 (two) Medical times Branch daily. raltegravir 2-0 Yes [id number] 400mg Take 1 [facility] (ISENTRESS) 3-28 tablet by ity of 400 mg 00:00: mouth 2 [place] tablet 00 (two) Medical times Branch daily. raltegravir 2021-0 Yes [id number] 400mg Take 1 [facility] (ISENTRESS) 3-28 tablet by ity of 400 mg 00:00: mouth 2 [place] tablet 00 (two) Medical times Branch daily. raltegravir 2021-0 Yes [id number] 400mg Take 1 [facility] (ISENTRESS) 3-28 tablet by ity of 400 mg 00:00: mouth 2 [place] tablet 00 (two) Medical times Branch daily. raltegravir 2021-0 Yes [id number] 400mg Take 1 [facility] (ISENTRESS) 3-28 tablet by ity of 400 mg 00:00: mouth 2 [place] tablet 00 (two) Medical times Branch daily. raltegravir 2021-0 Yes [id number] 400mg Take 1 [facility] (ISENTRESS) 3-28 tablet by ity of 400 mg 00:00: mouth 2 [place] tablet 00 (two) Medical times Branch daily. raltegravir 2-0 Yes [id number] 400mg Take 1 [facility] (ISENTRESS) 3-28 tablet by ity of 400 mg 00:00: mouth 2 [place] tablet 00 (two) Medical times Branch daily. raltegravir 2-0 Yes [id number] 400mg Take 1 [facility] (ISENTRESS) 3-28 tablet by ity of 400 mg 00:00: mouth 2 [place] tablet 00 (two) Medical times Branch daily. raltegravir 2-0 Yes [id number] 400mg Take 1 [facility] (ISENTRESS) 3-28 tablet by ity of 400 mg 00:00: mouth 2 [place] tablet 00 (two) Medical times Branch daily. raltegravir 2-0 Yes [id number] 400mg Take 1 [facility] (ISENTRESS) 3-28 tablet by ity of 400 mg 00:00: mouth 2 [place] tablet 00 (two) Medical times Branch daily. raltegravir 2021-0 Yes [id number] 400mg Take 1 [facility] (ISENTRESS) 3-28 tablet by ity of 400 mg 00:00: mouth 2 [place] tablet 00 (two) Medical times Branch daily. raltegravir 2021-0 Yes [id number] 400mg Take 1 [facility] (ISENTRESS) 3-28 tablet by ity of 400 mg 00:00: mouth 2 [place] tablet 00 (two) Medical times Branch daily. raltegravir 2021-0 Yes [id number] 400mg Take 1 [facility] (ISENTRESS) 3-28 tablet by ity of 400 mg 00:00: mouth 2 [place] tablet 00 (two) Medical times Branch daily. raltegravir 2021-0 Yes [id number] 400mg Take 1 [facility] (ISENTRESS) 3-28 tablet by ity of 400 mg 00:00: mouth 2 [place] tablet 00 (two) Medical times Branch daily. raltegravir 2021-0 Yes [id number] 400mg Take 1 [facility] (ISENTRESS) 3-28 tablet by ity of 400 mg 00:00: mouth 2 [place] tablet 00 (two) Medical times Branch daily. raltegravir 2021-0 Yes [id number] 400mg Take 1 [facility] (ISENTRESS) 3-28 tablet by ity of 400 mg 00:00: mouth 2 [place] tablet 00 (two) Medical times Branch daily. raltegravir 2021-0 Yes [id number] 400mg Take 1 [facility] (ISENTRESS) 3-28 tablet by ity of 400 mg 00:00: mouth 2 [place] tablet 00 (two) Medical times Branch daily. LORazepam 1 2021-0 2021- No [id number] 1mg Take 1 [facility] mg tablet 3-21 [...] times a tablet day. emtricitabi 202- No [id number] Take one [facility] ne-tenofovi -20 09-12 po daily ity of r alafen 00:00: 00:00 [place] (DESCOVY) 00 :00 Medical tablet Branch metoprolol Yes [id number] Take 1 [facility] tartrate 7-26 tablet Health (Lopressor) 00:00: (100 mg 100 MG 00 total) by tablet mouth 2 (two) times a day AND 0.5 tablets (50 mg total) every night. metoprolol Yes [id number] Take 1 [place] tartrate 7-26 tablet Health [...] (affected area in groin) hydrALAZINE Yes 50mg Q.[id number] Take 50 mg [facility] (APRESOLINE 7-19 [id number] [facility] mouth [facility] ) 50 MG [...] (affected area in groin) hydrALAZINE Yes 50mg Q.[id number] Take 50 mg [facility] (APRESOLINE 7-19 [id number] [facility] mouth [facility] ) 50 MG [...] (affected area in groin) hydrALAZINE Yes 50mg Q.[id number] Take 50 mg [facility] (APRESOLINE 7-19 [id number] by mouth [facility] ) 50 MG [...] area in groin) hydrALAZINE 0 Yes 50mg Q.[id number] Take 50 mg [facility] (APRESOLINE 7-19 [id number] [facility] mouth [facility] ) 50 MG [...] area in groin) hydrALAZINE 0 Yes 50mg Q.[id number] Take 50 mg [facility] (APRESOLINE 7-19 [id number] [facility] mouth [facility] ) 50 MG [...] (affected area in groin) hydrALAZINE Yes 50mg Q.[id number] Take 50 mg [facility] (APRESOLINE 7-19 [id number] [facility] mouth [facility] ) 50 MG [...] (affected area in groin) hydrALAZINE Yes 50mg Q.[id number] Take 50 mg [facility] (APRESOLINE 7-19 [id number] [facility] mouth [facility] ) 50 MG [...] area in groin) hydrALAZINE 0 Yes 50mg Q.[id number] Take 50 mg [facility] (APRESOLINE 7-19 [id number] [address] mouth [facility] ) 50 MG [...] (affected area in groin) hydrALAZINE Yes 50mg Q.[id number] Take 50 mg [facility] (APRESOLINE 7-19 [id number] [facility] mouth [facility] ) 50 MG [...] (affected area in groin) hydrALAZINE Yes 50mg Q.[id number] Take 50 mg [facility] (APRESOLINE 7-19 [id number] [address] mouth 3 [facility] ) 50 MG [...] area in groin) hydrALAZINE 0 Yes 50mg Q.[id number] Take 50 mg [facility] (APRESOLINE 7-19 [id number] [facility] mouth [facility] ) 50 MG [...] (affected area in groin) hydrALAZINE Yes 50mg Q.[id number] Take 50 mg [facility] (APRESOLINE 7-19 [id number] [facility] mouth [facility] ) 50 MG [...] (affected area in groin) hydrALAZINE Yes 50mg Q.[id number] Take 50 mg [facility] (APRESOLINE 7-19 [id number] mouth [facility] ) 50 MG [...] (affected area in groin) hydrALAZINE Yes 50mg Q.[id number] Take 50 mg [facility] (APRESOLINE 7-19 [id number] [address] mouth [facility] ) 50 MG [...] area in groin) hydrALAZINE 0 Yes 50mg Q.[id number] Take 50 mg [facility] (APRESOLINE 7-19 [id number] [address] mouth [facility] [address] ) 50 MG [...] (affected area in groin) hydrALAZINE Yes 50mg Q.[id number] Take 50 mg [facility] (APRESOLINE 7-19 [id number] [address] mouth [facility] ) 50 MG [...] area in groin) hydrALAZINE 0 Yes 50mg Q.[id number] Take 50 mg [facility] (APRESOLINE 7-19 [id number] mouth [facility] ) 50 MG [...] area in groin) hydrALAZINE 0 Yes 50mg Q.[id number] Take 50 mg [facility] (APRESOLINE 7-[id number] mouth [facility] ) 50 MG [...] (affected area in groin) hydrALAZINE Yes 50mg Q.[id number] Take 50 mg [facility] (APRESOLINE 7-19 [id number] mouth [facility] ) 50 MG [...] area in groin) hydrALAZINE 0 Yes 50mg Q.[id number] Take 50 mg [facility] (APRESOLINE 7-19 [id number] [address] mouth [facility] ) 50 MG [...] area in groin) hydrALAZINE 2020-0 Yes 50mg Q.[id number] Take 50 mg [facility] (APRESOLINE 7-19 [id number] mouth [facility] ) 50 MG [...] (affected area in groin) hydrALAZINE Yes 50mg Q.[id number] Take 50 mg [facility] (APRESOLINE 7-[id number] mouth [facility] [address] ) 50 MG [...] (affected area in groin) hydrALAZINE Yes 50mg Q.[id number] Take 50 mg [facility] (APRESOLINE 7-[id number] mouth [facility] ) 50 MG [...] area in groin) hydrALAZINE 0 Yes 50mg Q.[id number] Take 50 mg [facility] (APRESOLINE 7-[id number] mouth [facility] [address] ) 50 MG [...] area in groin) hydrALAZINE 0 Yes 50mg Q.[id number] Take 50 mg [facility] (APRESOLINE 7-19 [id number] [address] mouth [facility] ) 50 MG [...] (affected area in groin) hydrALAZINE Yes 50mg Q.[id number] Take 50 mg [facility] (APRESOLINE 7-19 [id number] mouth [facility] ) 50 MG [...] area in groin) hydrALAZINE 0 Yes 50mg Q.[id number] Take 50 mg [facility] (APRESOLINE 7-[id number] mouth [address] ) 50 MG [...] (affected area in groin) hydrALAZINE Yes 50mg Q.[id number] Take 50 mg [facility] (APRESOLINE 7-19 [id number] mouth [facility] [address] ) 50 MG [...] (affected area in groin) hydrALAZINE Yes 50mg Q.[id number] Take 50 mg [facility] (APRESOLINE 7-19 [id number] mouth [facility] [address] ) 50 MG [...] area in groin) hydrALAZINE 0 Yes 50mg Q.[id number] Take 50 mg [facility] (APRESOLINE 7-[id number] mouth [facility] [address] ) 50 MG [...] area in groin) hydrALAZINE 0 Yes 50mg Q.[id number] Take 50 mg [facility] (APRESOLINE 7-[id number] mouth [address] ) 50 MG [...] (affected area in groin) hydrALAZINE Yes 50mg Q.[id number] Take 50 mg [facility] (APRESOLINE 7-[id number] mouth [facility] ) 50 MG [...] (affected area in groin) hydrALAZINE Yes 50mg Q.[id number] Take 50 mg [facility] (APRESOLINE 7-[id number] mouth [facility] [address] ) 50 MG [...] area in groin) hydrALAZINE 2021-0 Yes 50mg Q.[id number] Take 50 mg [facility] (APRESOLINE 7-[id number] mouth [facility] ) 50 MG [...] [facility] tablet 25 l nystatin-tr 2021-0 Yes [id number] Apply to [facility] iamcinolone 7-06 area(s) 3 ity of cream 00:00: (three) [place] 00 times Medical daily. Branch nystatin-tr 2021-0 Yes [id number] Apply to [facility] iamcinolone 7-06 area(s) 3 ity of cream 00:00: (three) [place] 00 times Medical daily. Branch nystatin-tr 2021-0 Yes [id number] Apply to [facility] iamcinolone 7-06 area(s) 3 ity of cream 00:00: (three) [place] 00 times Medical daily. Branch nystatin-tr 2021-0 Yes [id number] Apply to [facility] iamcinolone 7-06 area(s) 3 ity of cream 00:00: (three) [place] 00 times Medical daily. Branch nystatin-tr 2021-0 Yes [id number] Apply to [facility] iamcinolone 7-06 area(s) 3 ity of cream 00:00: (three) [place] 00 times Medical daily. Branch nystatin-tr 2021-0 Yes [id number] Apply to [facility] iamcinolone 7-06 area(s) 3 ity of cream 00:00: (three) [place] 00 times Medical daily. Branch nystatin-tr 2021-0 Yes [id number] Apply to [facility] iamcinolone 7-06 area(s) 3 ity of cream 00:00: (three) [place] 00 times Medical daily. Branch nystatin-tr 2021-0 Yes [id number] Apply to [facility] iamcinolone 7-06 area(s) 3 ity of cream 00:00: (three) [place] 00 times Medical daily. Branch nystatin-tr 2021-0 Yes [id number] Apply to [facility] iamcinolone 7-06 area(s) 3 ity of cream 00:00: (three) [place] 00 times Medical daily. Branch nystatin-tr 2021-0 Yes [id number] Apply to [facility] iamcinolone 7-06 area(s) 3 ity of cream 00:00: (three) [place] 00 times Medical daily. Branch nystatin-tr 2021-0 Yes [id number] Apply to [facility] iamcinolone 7-06 area(s) 3 ity of cream 00:00: (three) [place] 00 times Medical daily. Branch nystatin-tr 2021-0 Yes [id number] Apply to [facility] iamcinolone 7-06 area(s) 3 ity of cream 00:00: (three) [place] 00 times Medical daily. Branch nystatin-tr 1-0 Yes [id number] Apply to [facility] iamcinolone 7-06 area(s) 3 ity of cream 00:00: (three) [place] 00 times Medical daily. Branch nystatin-tr 1-0 Yes [id number] Apply to [facility] iamcinolone 7-06 area(s) 3 ity of cream 00:00: (three) [place] 00 times Medical daily. Branch nystatin-tr 1-0 Yes [id number] Apply to [facility] iamcinolone 7-06 area(s) 3 ity of cream 00:00: (three) [place] 00 times Medical daily. Branch nystatin-tr 1-0 Yes [id number] Apply to [facility] iamcinolone 7-06 area(s) 3 ity of cream 00:00: (three) [place] 00 times Medical daily. Branch nystatin-tr 2020-0 Yes [id number] Apply to [facility] iamcinolone 7-06 area(s) 3 ity of cream 00:00: (three) [place] 00 times Medical daily. Branch nystatin-tr 2020-0 Yes [id number] Apply to [facility] iamcinolone 7-06 area(s) 3 ity of cream 00:00: (three) [place] 00 times Medical daily. Laurie budesonide- 2020-0 2020- No 1{puff} QD Inhale 1 [facility] formoteroL 6-25 06-[address] (SYMBICORT) 14:37: 00:00 morning. H ospita 160-4.5 02 :00 l mcg/actuati on inhaler hydrALAZINE 0 Yes [id number] 50mg Q.[id number] Take 1 [facility] (Apresoline 6-11 [id number] tablet (50 Health ) 50 MG 00:00: 3D mg total) tablet 00 by mouth 3 (three) times a day. hydrALAZINE 0 Yes [id number] 50mg Q.[id number] Take 1 [facility] (Apresoline 6-11 [id number] tablet (50 Health ) 50 MG 00:00: 3D mg total) tablet 00 by mouth 3 (three) times a day. Breztri Yes [facility] Aerosphere -09 Health 160-9-4.8 00:00: [...] % 00:00: ointment 00 nystatin 2020- No [id number] Q.25D Take 5 mL [facility] (MYCOSTATIN 10-06 [...] ia 4-10 (Same as: l 14:00: Cordarone) [place] Amlodipine No Notes: Memor ia 4-10 (Same [...] ia 4-10 (Same as: l 14:00: Norvasc) [place] emtricitabi No Notes: Caesar lisa ne 200 [...] ia 4-10 (Same as: l 14:00: Cordarone) [place] Amlodipine No Notes: Memor ia 4-10 (Same as: l 14:00: Norvasc) [place] emtricitabi No Notes: Caesar lisa ne 200 MG / 4-10 (Same as: l tenofovir 14:00: Descovy) Herm ariel alafenamide 00 Non-formul 25 MG Oral nancy Tablet [Descovy] Sertraline No Notes: Memor ia 4-10 (Same as: l 14:00: Zoloft) [place] pantoprazol No Notes: Caesar lisa e 4-10 Tablet l 14:00: should not [place] 00 be chewed or crushed. (Same as: Protonix) Amiodarone No Notes: Memor ia 4-10 (Same as: l 14:00: Cordarone) [place] 00 Amlodipine No Notes: Memor ia 4-10 (Same as: l 14:00: Norvasc) [place] emtricitabi No Notes: Caesar lisa ne 200 [...] e 4-10 Tablet l 14:00: should not [place] 00 be chewed or crushed. (Same as: [...] Memoria 4-10 Same as: l 02:00: Eliquis [place] Hydralazine No Notes: Caesar lisa Hydrochlori 4-10 [...] M emoria 4-10 interfere l 02:00: w/enteral [place] 00 feeds - Take 1 hr before [...] 0.9% 4-10 (Same as: l 02:00: BD [place] Posiflush) Eliquis No Notes: Memoria 4-10 Same as: l 02:00: Eliquis Marty 00 Hydralazine No Notes: Caesar lisa Hydrochlori 4-10 (Same as: l de 50 MG 02:00: Apresoline Her mitchell Oral Tablet 00 ) May interfere w/enteral feedings Take With Food Sucralfate No Notes: May M emoria 4-10 interfere l 02:00: w/enteral [place] 00 feeds - Take 1 hr before or 2 hr after antacids, dairy pdt, meals & minerals - On empty stomach. For patients unable to swallow tablet, dissolve in 10mL - 30mL of water or juice and stir before giving. (Same As: Carafate) Saline No Notes: [facility]oria Flush 0.9% 4-10 (Same as: l 02:00: BD [place] 00 Posiflush) Eliquis No Notes: Memoria 4-10 [...] not exceed l #3 00:12: 4gm/day of [place] acetaminop hen. (Same as: Tylenol with Codeine [...] not exceed l #3 00:12: 4gm/day of [place] acetaminop hen. (Same as: Tylenol with Codeine # 3) acetaminoph 2020-0 No Notes: Do M emoria en-codeine 4-10 not exceed l #3 00:12: 4gm/day of acetaminop hen. (Same as: Tylenol with Codeine # 3) Buspirone 2020-0 No Notes: Memori a 08-29 (Same As: l 22:00: BuSpar) Lisinopril 2020-0 No 40 mg, 1 Mem oria 4-09 tab, l 22:00: Route: PO, [place] 00 Drug form: TAB, BID, Dosing Weight 97.273, kg, Start date: 08/29/20 17:00:00 CDT, Duration: 30 day, Stop date: 09/28/20 9:00:00 CDT metoprolol 2020-0 No 100 mg, 1 Me moria tartrate - tab, l 22:00: Route: PO, [place] 00 Drug form: TAB, BID, Dosing Weight [...] tartrate 4-09 tab, l 22:00: Route: PO, [place] Drug form: TAB, BID, Dosing Weight 97.273, [...] tartrate - tab, l 22:00: Route: PO, [place] 00 Drug form: TAB, BID, Dosing Weight [...] tartrate 4-09 tab, l 22:00: Route: PO, [place] 00 Drug form: TAB, BID, Dosing Weight [...] - tab, l Tablet 22:00: Route: POSkylar [ISENTRESS] [...] Notes: Memoria 4-09 (Same l 17:07: as:MORPhin [place] 00 e Sulfate) Morphine No Notes: Memoria 4-09 (Same l 17:07: as:MORPhin [place] 00 e Sulfate) Morphine No Notes: Memoria 4-09 (Same l 17:07: as:MORPhin [place] 00 e Sulfate) Morphine No Notes: Memoria 4-09 (Same l 17:07: as:MORPhin [place] 00 e Sulfate) Morphine No Notes: Memoria [...] 30 tab, 0 coated Refill(s), tablet Pharmacy: [facility] 149, 162.56, cm, 08/29/20 5:30:00 CDT, Height, 97.273, kg, 08/29/20 5:30:00 CDT, Weight pantoprazol 1-0 Yes 40 mg = 1 M emoria e 40 mg 4-09 tab, PO, l oral 15:27: Daily, # Marty enteric 00 30 tab, 0 coated Refill(s), tablet Pharmacy: [facility] 149, 162.56, cm, 08/29/20 5:30:00 CDT, Height, 97.273, kg, 08/29/20 5:30:00 CDT, Weight pantoprazol 1-0 Yes 40 mg = 1 M emoria e 40 mg 4-09 tab, PO, l oral 15:27: Daily, # [place] enteric 00 30 tab, 0 coated Refill(s), tablet Pharmacy: [facility] 149, 162.56, cm, 08/29/20 5:30:00 CDT, Height, 97.273, kg, 08/29/20 5:30:00 CDT, Weight pantoprazol 1-0 Yes 40 mg = 1 M emoria e 40 mg 4-09 tab, PO, l oral 15:27: Daily, # [place] enteric 00 30 tab, 0 coated Refill(s), tablet Pharmacy: [facility] 149, 162.56, cm, 08/29/20 5:30:00 CDT, Height, 97.273, kg, 08/29/20 5:30:00 CDT, Weight pantoprazol 1-0 Yes 40 mg = 1 M emoria e 40 mg 4-09 tab, PO, l oral 15:27: Daily, # [place] enteric 00 30 tab, 0 coated Refill(s), tablet Pharmacy: [facility] 149, 162.56, cm, 08/29/20 5:30:00 CDT, Height, 97.273, kg, 08/29/20 5:30:00 CDT, Weight pantoprazol 2021-0 Yes 40 mg = 1 M emoria e 40 mg 4-09 tab, PO, l oral 15:27: Daily, # [place] enteric 00 30 tab, 0 coated Refill(s), tablet Pharmacy: [facility] 149, 162.56, cm, 08/29/20 5:30:00 CDT, Height, 97.273, kg, 08/29/20 5:30:00 CDT, Weight pantoprazol 2020-0 Yes 40 mg = 1 M emoria e 40 mg 4-09 tab, PO, l oral 15:27: Daily, # [place] enteric 00 30 tab, 0 coated Refill(s), tablet Pharmacy: [facility] 149, 162.56, cm, 08/29/20 [...] Skylar nn 00 tab, 0 Refill(s), Pharmacy: [facility] 149, 162.56, cm, 08/29/20 5:30:00 CDT, Height, 97.273, kg, 08/29/20 5:30:00 CDT, Weight pantoprazol 2020-0 No 40 mg = 1 M emoria e 40 mg 4-09 tab, PO, l oral 15:26: Daily, # [place] enteric 00 30 tab, 0 coated Refill(s) tablet sucralfate 2020-0 Yes 1 gm = 1 Mem oria 1 g oral 4-09 tab, PO, l tablet 15:26: Q12H, # 28 Skylar nn 00 tab, 0 Refill(s), Pharmacy: [facility] 149, 162.56, cm, 08/29/20 [...] Skylar nn 00 tab, 0 Refill(s), Pharmacy: [facility] 149, 162.56, cm, 08/29/20 5:30:00 CDT, Height, 97.273, kg, 08/29/20 5:30:00 CDT, Weight pantoprazol 2020-0 No 40 mg = 1 M emoria e 40 mg 4-09 tab, PO, l oral 15:26: Daily, # [place] enteric 00 30 tab, 0 coated Refill(s) tablet sucralfate 0 Yes 1 gm = 1 Mem oria 1 g oral 4-09 tab, PO, l tablet 15:26: Q12H, # 28 Skylar nn 00 tab, 0 Refill(s), Pharmacy: [facility] 149, 162.56, cm, 08/29/20 5:30:00 CDT, Height, 97.273, kg, 08/29/20 5:30:00 CDT, Weight pantoprazol 2020-0 No 40 mg = 1 M emoria e 40 mg 4-09 tab, PO, l oral 15:26: Daily, # [place] enteric 00 30 tab, 0 coated Refill(s) tablet sucralfate 2020-0 Yes 1 gm = 1 Mem oria 1 g oral 4-09 tab, PO, l tablet 15:26: Q12H, # 28 Skylar nn 00 tab, 0 Refill(s), Pharmacy: [facility] 149, 162.56, cm, 08/29/20 [...] Skylar nn 00 tab, 0 Refill(s), Pharmacy: [facility] 149, 162.56, cm, 08/29/20 [...] Skylar nn 00 tab, 0 Refill(s), Pharmacy: [facility] 149, 162.56, cm, 08/29/20 5:30:00 CDT, Height, 97.273, kg, 08/29/20 5:30:00 CDT, Weight Saline No Notes: Memoria Flush 0.9% 4-09 (Same as: l 15:25: BD Marty 00 Posiflush) Lorazepam No Notes: Memori a 4-09 (Same as: l 15:25: Ativan) [place] Saline No Notes: Memoria Flush 0.9% 4-09 (Same as: l 15:25: BD [place] 00 Posiflush) Lorazepam No Notes: Memori a 4-09 (Same as: l 15:25: Ativan) [place] Saline No Notes: Memoria Flush 0.9% 4-09 (Same as: l 15:25: BD Marty 00 Posiflush) Saline No Notes: Memoria Flush 0.9% 4-09 (Same as: l 15:25: BD [place] 00 Posiflush) Lorazepam No Notes: Memori a 4-09 (Same as: l 15:25: Ativan) Marty Lorazepam No Notes: Memori a 4-09 (Same as: l 15:25: Ativan) [place] Saline No Notes: Memoria Flush 0.9% 4-09 (Same as: l 15:25: BD [place] 00 Posiflush) Lorazepam 2021-0 No Notes: Memori a 4-09 (Same as: l 15:25: Ativan) Saline No Notes: Memoria Flush 0.9% 4- (Same as: l 15:25: BD Posiflush) Lorazepam [...] Drug form: l mg + 15:00: INJ, [place] 00 Dosing Weight 97.3, kg, Start date: 08/29/20 10:00:00 CDT, Stop date: 08/29/20 11:00:00 CDT Isuprel HCl 2020-0 No Route: IV, Memoria (ANES) 0.2 08-29 Drug form: l mg + 15:00: INJ, [place] 00 Dosing Weight 97.3, kg, Start date: [...] 08-29 Drug form: l 14:18: INJ, ONCE, [place] 00 Stop date: 08/29/20 9:18:00 CDT heparin [...] Memori a 08-29 Route: l 14:01: IVP, [place] 00 Q5Min, Dosing Weight 97.273, kg, PRN Elevated BP, Start date: 08/29/20 9:01:00 CDT, Duration: 5 doses or times, Stop date: Limited # of times Acetaminoph 0 No 1,000 mg, M emoria en 08-29 Route: PO, l 14:01: Drug form: [place] 00 TAB, ONCE, Dosing Weight 97.273, kg, [...] lisa 08-29 Route: l 14:01: IVP, PRN, [place] Dosing Weight 97.273, kg, PRN Benzodiaze pine [...] 08-29 Route: PO, l 14:01: Drug form: [place] 00 TAB, ONCE, Dosing Weight 97.273, kg, [...] oria ne 08-29 Route: l 14:01: IVP, [place] 00 Q5Min, Dosing Weight 97.273, kg, PRN Pain Score 7-10, Start date: 08/29/20 9:01:00 CDT, Duration: 4 doses or times, Stop date: Limited # of times Flumazenil 1-0 No 0.2 mg, Caesar lisa 08-29 Route: l 14:01: IVP, PRN, [place] 00 Dosing Weight 97.273, kg, PRN Benzodiaze pine Reversal, Initial dose, Start date: 08/29/20 9:01:00 CDT, Duration: 30 day, Stop date: 09/28/20 9:00:00 CDT Naloxone 1-0 No 0.4 mg, Memori a 08-29 Route: l 14:01: IVP, [place] 00 Q2MIN, Dosing Weight 97.273, kg, PRN Narcotic Reversal, Start date: 08/29/20 9:01:00 CDT, Duration: 8 doses or times, Stop date: Limited # of times Ondansetron 1-0 No 4 mg, Memor ia 08-29 Route: l 14:01: IVP, ONCE, [place] 00 Dosing Weight 97.273, kg, PRN Nausea & Vomiting, Start date: 08/29/20 9:01:00 CDT Labetalol 2021-0 No 10 mg, Memori a 08-29 Route: l 14:01: IVP, [place] 00 Q5Min, Dosing Weight 97.273, kg, PRN [...] lisa 08-29 Route: l 14:01: IVP, PRN, [place] 00 Dosing Weight 97.273, kg, PRN Benzodiaze pine Reversal, Initial dose, Start date: 08/29/20 9:01:00 CDT, Duration: 30 day, Stop date: 09/28/20 9:00:00 CDT Naloxone 1-0 No 0.4 mg, Memori a 08-29 Route: l 14:01: IVP, [place] 00 Q2MIN, Dosing Weight 97.273, kg, PRN [...] 08-29 Route: PO, l 14:01: Drug form: [place] 00 TAB, ONCE, Dosing Weight 97.273, kg, [...] oria ne 08-29 Route: l 14:01: IVP, [place] 00 Q5Min, Dosing Weight 97.273, kg, PRN [...] 08-29 Route: PO, l 14:01: Drug form: [place] 00 TAB, ONCE, Dosing Weight 97.273, kg, [...] lisa 08-29 Route: l 14:01: IVP, PRN, [place] 00 Dosing Weight 97.273, kg, PRN Benzodiaze [...] lisa 08-29 Route: l 14:01: IVP, PRN, [place] 00 Dosing Weight 97.273, kg, PRN Benzodiaze pine Reversal, Initial dose, Start date: 08/29/20 9:01:00 CDT, Duration: 30 day, Stop date: 09/28/20 9:00:00 CDT Ondansetron 2021-0 No 4 mg, Memor ia 08-29 Route: l 14:01: IVP, ONCE, [place] 00 Dosing Weight 97.273, kg, PRN Nausea & Vomiting, Start date: 08/29/20 9:01:00 CDT Naloxone 2021-0 No 0.4 mg, Memori a 08-29 Route: l 14:01: IVP, [place] 00 Q2MIN, Dosing Weight 97.273, kg, PRN Narcotic Reversal, Start date: 08/29/20 9:01:00 CDT, Duration: 8 doses or times, Stop date: Limited # of times Ondansetron 2021-0 No 4 mg, Memor ia 08-29 Route: l 14:01: IVP, ONCE, [place] 00 Dosing Weight 97.273, kg, PRN Nausea [...] oria ne 08-29 Route: l 14:01: IVP, [place] 00 Q5Min, Dosing Weight 97.273, kg, PRN [...] Memori a 08-29 Route: l 14:01: IVP, [place] 00 Q2MIN, Dosing Weight 97.273, kg, PRN Narcotic Reversal, Start date: 08/29/20 9:01:00 CDT, Duration: 8 doses or times, Stop date: Limited # of times Ondansetron 1-0 No 4 mg, Memor ia 08-29 Route: l 14:01: IVP, ONCE, [place] 00 Dosing Weight 97.273, kg, PRN Nausea & Vomiting, Start date: 08/29/20 9:01:00 CDT Labetalol 1-0 No 10 mg, Memori a 08-29 Route: l 14:01: IVP, [place] 00 Q5Min, Dosing Weight 97.273, kg, PRN Elevated BP, Start date: 08/29/20 9:01:00 CDT, Duration: 5 doses or times, Stop date: Limited # of times Acetaminoph 2020-0 No 1,000 mg, M emoria en 08-29 Route: PO, l 14:01: Drug form: [place] 00 TAB, ONCE, Dosing Weight 97.273, kg, [...] 8:52:00 CDT rocuronium 2020-0 No Route: IV, Elbert emoria (ANES) 08-29 [...] Drug form: l 10 13:15: INJ, Start [place] microgram 00 date: 08/29/20 8:15:00 CDT, Stop date: 08/29/20 9:15:00 CDT norepinephr 2020-0 No Route: IV, Memoria ine (ANES) 08-29 Drug form: l 10 13:15: INJ, Start Marty microgram date: 08/29/20 8:15:00 CDT, Stop date: 08/29/20 9:15:00 CDT norepinephr 2020-0 No Route: IV, Memoria ine (ANES) 08-29 Drug form: l 10 13:15: INJ, Start [place] microgram date: 08/29/20 8:15:00 CDT, Stop date: 08/29/20 9:15:00 CDT norepinephr 2020-0 No Route: IV, Memoria ine (ANES) 08-29 Drug form: l 10 13:15: INJ, Start [place] microgram date: 08/29/20 8:15:00 CDT, Stop date: [...] 4-09 Total l 0.9% IV 12:30: Volume: [place] (ANES) 1000 00 1,000, mL Start date: 08/29/20 7:30:00 CDT, Stop date: 08/29/20 8:30:00 CDT Sodium 2021-0 No Route: IV, Memor ia Chloride 4-09 Total l 0.9% IV 12:30: Volume: Marty (ANES) 1000 00 1,000, mL Start date: 08/29/20 7:30:00 CDT, Stop date: 08/29/20 8:30:00 CDT Sodium 2021-0 No Route: IV, Memor ia Chloride 4-09 Total l 0.9% IV 12:30: Volume: [place] (ANES) 1000 00 1,000, mL Start date: 08/29/20 7:30:00 CDT, Stop date: 08/29/20 8:30:00 CDT Sodium 2021-0 No Route: IV, Memor ia Chloride 4-09 Total l 0.9% IV 12:30: Volume: [place] (ANES) 1000 00 1,000, mL Start date: [...] PO, l Hydrochlori 11:42: Q24H, # 30 [place] de 150 MG 00 tab, 0 Extended [...] PO, l Hydrochlori 11:42: Q24H, # 30 [place] de 150 MG 00 tab, 0 Extended Refill(s) Release Tablet 24 HR 0 Yes 150 mg = 1 Memori a Bupropion 4-09 tab, PO, l Hydrochlori 11:42: Q24H, # 30 [place] de 150 MG 00 tab, 0 Extended Refill(s) Release Tablet 24 HR 0 Yes 150 mg = 1 Memori a Bupropion 4-09 tab, PO, l Hydrochlori 11:42: Q24H, # 30 Marty de 150 MG 00 tab, 0 Extended Refill(s) Release Tablet apixaban 5 2020-0 Yes 5 mg, PO, Me moria MG Oral 4 Q12H, tab, l Tablet 11:41: 0 [place] [Eliquis] 00 Refill(s), For Atrial Fibrilatio n apixaban 2020-0 Yes 5 mg, PO, Me moria MG Oral 4 Q12H, tab, l Tablet 11:41: 0 [place] [Eliquis] 00 Refill(s), For Atrial Fibrilatio n apixaban 5 2020-0 Yes 5 mg, PO, Me moria MG Oral 4- Q12H, tab, l Tablet 11:41: 0 [place] [Eliquis] 00 Refill(s), For Atrial Fibrilatio n apixaban 2020-0 Yes 5 mg, PO, Me moria MG Oral 4- Q12H, tab, l Tablet 11:41: 0 [place] [Eliquis] 00 Refill(s), For Atrial Fibrilatio n apixaban 5 2020-0 Yes 5 mg, PO, Me moria MG Oral 4- Q12H, tab, l Tablet 11:41: 0 [place] [Eliquis] 00 Refill(s), For Atrial Fibrilatio n apixaban 5 2020-0 Yes 5 mg, PO, Me moria MG Oral 4- Q12H, tab, l Tablet 11:41: 0 [place] [Eliquis] 00 Refill(s), For Atrial Fibrilatio n apixaban 5 Yes 5 mg, PO, Me moria MG Oral 4-09 Q12H, tab, l Tablet 11:41: 0 [place] [Floydis] 00 Refill(s), For Atrial Fibrilatio n AMIODarone Yes 200 mg = 1 M emoria 200 mg oral 4-09 tab, PO, l tablet 11:38: Daily, # [place] 00 90 tab, 3 Refill(s) AMIODarone Yes 200 mg = 1 M emoria 200 mg oral 4-09 tab, PO, l tablet 11:38: Daily, # [place] 00 90 tab, 3 Refill(s) AMIODarone Yes 200 mg = 1 M emoria 200 mg oral 4-09 tab, PO, l tablet 11:38: Daily, # [place] 00 90 tab, 3 Refill(s) AMIODarone Yes 200 mg = 1 M emoria 200 mg oral 4-09 tab, PO, l tablet 11:38: Daily, # [place] 00 90 tab, 3 Refill(s) AMIODarone Yes [...] tab, PO, l tablet 11:38: Daily, # [place] 00 90 tab, 3 Refill(s) normal No [...] 09/28/20 5:29:00 CDT, 2.13, m2, 0 pantoprazol 202- No Metho di e 08-29 st [...] [facility] ([facility] 400[facility] Q.5D Take 400 Met [facility] 400 mg 3-[address] tablet 00:00: mouth 2 [facility]osp[facility] 00 (two) l times a day. [facility] Yes 400mg Q.5D Take 400 Met [facility] 400 mg 3-[address] tablet 00:00: mouth 2 [facility] 00 (two) l [facility]. [facility] 400[facility] Q.5D Take 400 Met [facility] 400 mg 3-[address] tablet 00:00: mouth 2 [facility] 00 (two) l times a day. Immunizations Ordered Filled Immunization Date Status Comments [facility] e Immunization Name Name SARS-COV-2 COVID-19 [...] [place] 65[place] PFIZER COVID-19 2020-07-23 Completed [facility] MRNA VACCINATION 00:00:00 [facility] PFIZER COVID-19 2020-07-23 Completed [facility] MRNA VACCINATION 00:00:00 [facility] PFIZER COVID-19 2020-07-23 Completed [facility] MRNA VACCINATION 00:00:00 [facility] PFIZER COVID-19 2020-07-23 Completed [facility] MRNA VACCINATION 00:00:00 [facility] PFIZER COVID-19 2020-07-23 Completed [facility] MRNA VACCINATION 00:00:00 [facility] PFIZER COVID-19 2020-07-23 Completed [facility] MRNA VACCINATION 00:00:00 [facility] PFIZER COVID-19 2020-07-23 Completed [facility] MRNA VACCINATION 00:00:00 [facility] PFIZER COVID-19 2020-07-23 Completed [facility] MRNA VACCINATION 00:00:00 [facility] PFIZER COVID-19 2020-07-23 Completed [facility] MRNA VACCINATION 00:00:00 [facility] PFIZER COVID-19 2020-07-23 Completed [facility] MRNA VACCINATION 00:00:00 [facility] PFIZER COVID-19 2020-07-23 Completed [facility] MRNA VACCINATION 00:00:00 [facility] PFIZER COVID-19 2020-07-23 Completed [facility] MRNA VACCINATION 00:00:00 [facility] PFIZER COVID-19 2020-07-23 Completed [facility] MRNA VACCINATION 00:00:00 [facility] PFIZER COVID-19 2020-07-23 Completed [facility] MRNA VACCINATION 00:00:00 [facility] PFIZER COVID-19 2020-07-23 Completed [facility] MRNA VACCINATION 00:00:00 [facility] PFIZER COVID-19 2020-07-23 Completed [facility] MRNA VACCINATION 00:00:00 [facility] PFIZER COVID-19 2020-07-23 Completed [facility] MRNA VACCINATION 00:00:00 [facility] PFIZER COVID-19 2020-07-23 Completed [facility] MRNA VACCINATION 00:00:00 [facility] PFIZER COVID-19 2020-07-23 Completed [facility] MRNA VACCINATION 00:00:00 [facility] PFIZER COVID-19 2020-07-23 Completed [facility] MRNA VACCINATION 00:00:00 [facility] PFIZER COVID-19 2020-07-23 Completed [facility] MRNA VACCINATION 00:00:00 [facility] PFIZER COVID-19 2020-07-23 Completed [facility] MRNA VACCINATION 00:00:00 [facility] PFIZER COVID-19 2020-07-23 Completed [facility] MRNA VACCINATION 00:00:00 [facility] PFIZER COVID-19 2020-07-23 Completed [facility] MRNA VACCINATION 00:00:00 [facility] PFIZER COVID-19 2020-07-23 Completed [facility] MRNA VACCINATION 00:00:00 [facility] PFIZER COVID-19 2020-07-23 Completed [facility] MRNA VACCINATION 00:00:00 [facility] PFIZER COVID-19 2020-07-23 Completed [facility] MRNA VACCINATION 00:00:00 [facility] PFIZER COVID-19 2020-07-23 Completed [facility] MRNA VACCINATION 00:00:00 [facility] PFIZER COVID-19 2020-07-23 Completed [facility] MRNA VACCINATION 00:00:00 [facility] PFIZER COVID-19 2020-07-23 Completed [facility] MRNA VACCINATION 00:00:00 Hospital PFIZER COVID-19 2020-07-23 Completed [facility] MRNA VACCINATION 00:00:00 [facility] PFIZER COVID-19 2020-07-23 Completed [facility] MRNA VACCINATION 00:00:00 [facility] PFIZER COVID-19 2020-07-23 Completed [facility] MRNA VACCINATION 00:00:00 [facility] SARS-COV-2 COVID-19 2020-07-23 Completed [facility] PFIZER VACCINE 00:00:00 [facility] SARS-COV-2 COVID-19 2020-07-23 Completed [facility] of PFIZER VACCINE 00:00:00 [facility] SARS-COV-2 COVID-19 2020-07-23 Completed [facility] rs[facility] of PFIZER VACCINE 00:00:00 [facility] SARS-COV-2 COVID-19 2020-07-23 Completed [facility] of PFIZER VACCINE 00:00:00 [facility] SARS-COV-2 COVID-19 2020-07-23 Completed [facility] of PFIZER VACCINE 00:00:00 [facility] SARS-COV-2 COVID-19 2020-07-23 Completed [facility] of PFIZER VACCINE 00:00:00 [facility] SARS-COV-2 COVID-19 2020-07-23 Completed [facility]ive [facility] of PFIZER VACCINE 00:00:00 [facility] SARS-COV-2 COVID-19 2020-07-23 Completed [facility] of PFIZER VACCINE 00:00:00 [facility] SARS-COV-2 COVID-19 2020-07-23 Completed [facility]ive [facility] of PFIZER VACCINE 00:00:00 [facility] SARS-COV-2 COVID-19 2020-07-23 Completed [facility] of PFIZER VACCINE 00:00:00 [facility] SARS-COV-2 COVID-19 2020-07-23 Completed [facility] of PFIZER VACCINE 00:00:00 [facility] SARS-COV-2 COVID-19 2020-07-23 Completed [facility] of PFIZER VACCINE 00:00:00 [facility] SARS-COV-2 COVID-19 2020-07-23 Completed [facility] of PFIZER VACCINE 00:00:00 [facility] SARS-COV-2 COVID-19 2020-07-23 Completed [facility] of PFIZER VACCINE 00:00:00 [facility] PFIZER COVID-19 2020-07-23 Completed [facility] MRNA VACCINATION 00:00:00 [facility] PFIZER COVID-19 2020-07-02 Completed [facility] MRNA VACCINATION 00:00:00 Hospital PFIZER COVID-19 2020-07-02 Completed [facility] MRNA VACCINATION 00:00:00 Hospital PFIZER COVID-19 2020-07-02 Completed [facility] MRNA VACCINATION 00:00:00 Hospital PFIZER COVID-19 2020-07-02 Completed [facility] MRNA VACCINATION 00:00:00 Hospital PFIZER COVID-19 2020-07-02 Completed [facility] MRNA VACCINATION 00:00:00 Hospital PFIZER COVID-19 2020-07-02 Completed [facility] MRNA VACCINATION 00:00:00 [facility] PFIZER COVID-19 2020-07-02 Completed [facility] MRNA VACCINATION 00:00:00 [facility] PFIZER COVID-19 2020-07-02 Completed [facility] MRNA VACCINATION 00:00:00 [facility] PFIZER COVID-19 2020-07-02 Completed [facility] MRNA VACCINATION 00:00:00 [facility] PFIZER COVID-19 2020-07-02 Completed [facility] MRNA VACCINATION 00:00:00 [facility] PFIZER COVID-19 2020-07-02 Completed [facility] MRNA VACCINATION 00:00:00 [facility] PFIZER COVID-19 2020-07-02 Completed [facility] MRNA VACCINATION 00:00:00 [facility] PFIZER COVID-19 2020-07-02 Completed [facility] MRNA VACCINATION 00:00:00 [facility] PFIZER COVID-19 2020-07-02 Completed [facility] MRNA VACCINATION 00:00:00 [facility] PFIZER COVID-19 2020-07-02 Completed [facility] MRNA VACCINATION 00:00:00 [facility] PFIZER COVID-19 2020-07-02 Completed [facility] VACCINATION 00:00:00 [facility] PFIZER COVID-19 2020-07-02 Completed [facility] VACCINATION 00:00:00 [facility] PFIZER COVID-19 2020-07-02 Completed [facility] VACCINATION 00:00:00 [facility] PFIZER COVID-19 2020-07-02 Completed [facility] VACCINATION 00:00:00 [facility] PFIZER COVID-19 2020-07-02 Completed [facility] MRNA VACCINATION 00:00:00 [facility] PFIZER COVID-19 2020-07-02 Completed [facility] MRNA VACCINATION 00:00:00 [facility] PFIZER COVID-19 2020-07-02 Completed [facility] MRNA VACCINATION 00:00:00 [facility] PFIZER COVID-19 2020-07-02 Completed [facility] MRNA VACCINATION 00:00:00 [facility] PFIZER COVID-19 2020-07-02 Completed [facility] MRNA VACCINATION 00:00:00 [facility] PFIZER COVID-19 2020-07-02 Completed [facility] MRNA VACCINATION 00:00:00 [facility] PFIZER COVID-19 2020-07-02 Completed [facility] MRNA VACCINATION 00:00:00 [facility] PFIZER COVID-19 2020-07-02 Completed [facility] MRNA VACCINATION 00:00:00 [facility] PFIZER COVID-19 2020-07-02 Completed [facility] MRNA VACCINATION 00:00:00 [facility] PFIZER COVID-19 2020-07-02 Completed [facility] MRNA VACCINATION 00:00:00 [facility] PFIZER COVID-19 2020-07-02 Completed [facility] MRNA VACCINATION 00:00:00 [facility] PFIZER COVID-19 2020-07-02 Completed [facility] MRNA VACCINATION 00:00:00 [facility] PFIZER COVID-19 2020-07-02 Completed [facility] MRNA VACCINATION 00:00:00 [facility] PFIZER COVID-19 2020-07-02 Completed [facility] MRNA VACCINATION 00:00:00 [facility] SARS-COV-2 COVID-19 2020-07-02 Completed [facility] PFIZER VACCINE 00:00:00 [facility] SARS-COV-2 COVID-19 2020-07-02 Completed [facility] PFIZER VACCINE 00:00:00 [facility] SARS-COV-2 COVID-19 2020-07-02 Completed [facility] PFIZER VACCINE 00:00:00 [facility] SARS-COV-2 COVID-19 2020-07-02 Completed [facility] PFIZER VACCINE 00:00:00 [facility] SARS-COV-2 COVID-19 2020-07-02 Completed [facility] PFIZER VACCINE 00:00:00 [facility] SARS-COV-2 COVID-19 2020-07-02 Completed [facility] PFIZER VACCINE 00:00:00 [facility] SARS-COV-2 COVID-19 2020-07-02 Completed [facility] PFIZER VACCINE 00:00:00 [facility] SARS-COV-2 COVID-19 2020-07-02 Completed [facility] PFIZER VACCINE 00:00:00 [facility] SARS-COV-2 COVID-19 2020-07-02 Completed [facility] PFIZER VACCINE 00:00:00 [facility] SARS-COV-2 COVID-19 2020-07-02 Completed [facility] PFIZER VACCINE 00:00:00 [facility] SARS-COV-2 COVID-19 2020-07-02 Completed [facility]ive [facility] of PFIZER VACCINE 00:00:00 [facility] SARS-COV-2 COVID-19 2020-07-02 Completed [facility] of PFIZER VACCINE 00:00:00 [facility] SARS-COV-2 COVID-19 2020-07-02 Completed [facility] of PFIZER VACCINE 00:00:00 [facility] SARS-COV-2 COVID-19 2020-07-02 Completed [facility] of PFIZER VACCINE 00:00:00 [facility] PFIZER COVID-19 2020-07-02 Completed [employer] MRNA VACCINATION 00:00:00 [facility] Influenza Virus 2017-03-08 Completed [facility]it [facility] Vaccine 00:00:00 [facility] Influenza Virus 2017-03-08 Completed [facility]it [facility] of Vaccine 00:00:00 [facility] Influenza Virus 2017-03-08 Completed [facility] of Vaccine 00:00:00 [facility] Influenza Virus 2017-03-08 Completed [facility] of Vaccine 00:00:00 [facility] Influenza Virus 2017-03-08 Completed [facility] of Vaccine 00:00:00 [facility] Influenza Virus 2017-03-08 Completed [facility] of Vaccine 00:00:00 [facility] Influenza Virus 2017-03-08 Completed [facility] of Vaccine 00:00:00 [facility] Influenza Virus 2017-03-08 Completed [facility] of Vaccine 00:00:00 [facility] Influenza Virus 2017-03-08 Completed [facility] of Vaccine 00:00:00 [facility] Influenza Virus 2017-03-08 Completed [facility] of Vaccine 00:00:00 [facility] Influenza Virus 2017-03-08 Completed [facility] of Vaccine 00:00:00 [facility] Influenza Virus 2017-03-08 Completed [facility] of Vaccine 00:00:00 [facility] Influenza Virus 2017-03-08 Completed [facility] of Vaccine 00:00:00 [facility] Influenza Virus 2017-03-08 Completed [facility] of Vaccine 00:00:00 [facility] Influenza Virus 2017-03-08 Completed [facility] of Vaccine 00:00:00 [facility] Influenza Virus 2017-03-08 Completed [facility] of Vaccine 00:00:00 [facility] Influenza Virus 2017-03-08 Completed [facility] of Vaccine 00:00:00 [facility] Influenza Virus 2017-03-08 Completed [facility] of Vaccine 00:00:00 [facility] Influenza Virus 2014-01-30 Completed [facility] Vaccine (3+ yrs) 00:00[facility]00 [facility] Pneumococcal 13 2014-01-30 Completed [facility]it y of Conjugate, PCV13 00:00:00 [facility] dical (Prevnar 13) Branch Influenza Virus 2014-01-30 Completed [facility]it [facility] of Vaccine (3+ yrs) 00:00:00 [facility] Pneumococcal 13 2014-01-30 Completed [facility]it y of Conjugate, PCV13 00:00:00 [facility] dical (Prevnar 13) Branch Influenza Virus 2014-01-30 Completed [facility] of Vaccine (3+ yrs) 00:00:00 [facility] Pneumococcal 13 2014-01-30 Completed [facility]it [facility] of Conjugate, PCV13 00:00:00 [facility] dical (Prevnar 13) Branch Influenza Virus 2014-01-30 Completed [facility] of Vaccine (3+ yrs) 00:00:00 [facility] Pneumococcal 13 2014-01-30 Completed [facility]it [facility] of Conjugate, PCV13 00:00:00 [facility] dical (Prevnar 13) Branch Influenza Virus 2014-01-30 Completed [facility] of Vaccine (3+ yrs) 00:00:00 [facility] Pneumococcal 13 2014-01-30 Completed [facility]it [facility] of Conjugate, PCV13 00:00:00 [facility] dical (Prevnar 13) Branch Influenza Virus 2014-01-30 Completed [facility] of Vaccine (3+ yrs) 00:00:00 [facility] Pneumococcal 13 2014-01-30 Completed [facility]it [facility] of Conjugate, PCV13 00:00:00 [facility] dical (Prevnar 13) Branch [...] Completed [facility]it y of Conjugate, PCV13 00:00:00 [facility] dical (Prevnar 13) Branch Influenza Virus 2014-01-30 Completed [facility]it [facility] of Vaccine (3+ yrs) 00:00:00 [facility] Branch Pneumococcal 13 2014-01-30 Completed [facility]it y of Conjugate, PCV13 00:00:00 [place] [facility] (Prevnar 13) [facility] Influenza Virus 2014-01-30 Completed [facility]it [facility] of Vaccine (3+ yrs) 00:00:00 [facility] Branch Pneumococcal 13 2014-01-30 Completed [facility]it y of Conjugate, PCV13 00:00:00 [facility] dical (Prevnar 13) Branch Influenza Virus 2014-01-30 Completed [facility]it y of Vaccine (3+ yrs) 00:00:00 [facility] Branch Pneumococcal 13 2014-01-30 Completed [facility]it y of Conjugate, PCV13 00:00:00 [facility] dical (Prevnar 13) Branch Influenza Virus 2014-01-30 Completed [facility]it [facility] of Vaccine (3+ yrs) 00:00:00 [facility] Branch Pneumococcal 13 2014-01-30 Completed [facility]it y of Conjugate, PCV13 00:00:00 [facility] dical (Prevnar 13) Branch Influenza Virus 2014-01-30 Completed [facility]it [facility] of Vaccine (3+ yrs) 00:00:00 [facility] Branch Pneumococcal 13 2014-01-30 Completed [facility]it y of Conjugate, PCV13 00:00:00 [facility] dical (Prevnar 13) Branch Influenza Virus 2014-01-30 Completed [facility]it [facility] of Vaccine (3+ yrs) 00:00:00 [facility] Branch Pneumococcal 13 2014-01-30 Completed [facility]it y of Conjugate, PCV13 00:00:00 [facility] dical (Prevnar 13) Branch Influenza Virus 2014-01-30 Completed [facility]it [facility] of Vaccine (3+ yrs) 00:00:00 [facility] Branch Pneumococcal 13 2014-01-30 Completed [facility]it y of Conjugate, PCV13 00:00:00 [facility] dical (Prevnar 13) Branch Influenza Virus 2014-01-30 Completed [facility]it y of Vaccine (3+ yrs) 00:00:00 [facility] Branch Pneumococcal 13 2014-01-30 Completed [facility]it y of Conjugate, PCV13 00:00:00 [facility] dical (Prevnar 13) Branch Pneumococcal 2012-02-16 Completed University o f Polysaccharide, 00:00:00 [place] [facility] PPSV23 (PNEUMOVAX) Branch Influenza Virus 2012-02-16 Completed [facility] of Vaccine 00:00:00 [facility] PPD (TB) 2012-02-16 Completed University of 00:00:00 [facility] Pneumococcal 2012-02-16 Completed University o f Polysaccharide, 00:00:00 [place] [facility] PPSV23 (PNEUMOVAX) Branch Influenza Virus 2012-02-16 Completed [facility] of Vaccine 00:00:00 [facility] PPD (TB) 2012-02-16 Completed [facility] of 00:00:00 [facility] Pneumococcal 2012-02-16 Completed [facility] o f Polysaccharide, 00:00:00 [place] [facility] PPSV23 (PNEUMOVAX) Branch Influenza Virus 2012-02-16 Completed [facility] of Vaccine 00:00:00 [facility] PPD (TB) 2012-02-16 Completed [facility] of 00:00:00 [facility] Pneumococcal 2012-02-16 Completed [facility] o f Polysaccharide, 00:00:00 [place] [facility] PPSV23 (PNEUMOVAX) Branch Influenza Virus 2012-02-16 Completed [facility] of Vaccine 00:00:00 [facility] PPD (TB) 2012-02-16 Completed [facility] of 00:00:00 [facility] Pneumococcal 2012-02-16 Completed [facility] o f Polysaccharide, 00:00:00 [place] [facility] PPSV23 (PNEUMOVAX) Branch Influenza Virus 2012-02-16 Completed [facility] of Vaccine 00:00:00 [facility] PPD (TB) 2012-02-16 Completed [facility] of 00:00:00 [facility] Pneumococcal 2012-02-16 Completed [facility] o f Polysaccharide, 00:00:00 [place] [facility] PPSV23 (PNEUMOVAX) Branch Influenza Virus 2012-02-16 Completed [facility] of Vaccine 00:00:00 [facility] PPD (TB) 2012-02-16 Completed [facility] of 00:00:00 [facility] Pneumococcal 2012-02-16 Completed [facility] o f Polysaccharide, 00:00:00 [place] [facility] PPSV23 (PNEUMOVAX) Branch Influenza Virus 2012-02-16 Completed [facility] of Vaccine 00:00:00 [facility] PPD (TB) 2012-02-16 Completed [facility] of 00:00:00 [facility] Pneumococcal 2012-02-16 Completed [facility] o f Polysaccharide, 00:00:00 [place] [facility] PPSV23 (PNEUMOVAX) Branch Influenza Virus 2012-02-16 Completed [facility] of Vaccine 00:00:00 [facility] PPD (TB) 2012-02-16 Completed University of 00:00:00 [facility] Pneumococcal 2012-02-16 Completed [facility] o f Polysaccharide, 00:00:00 [place] [facility] PPSV23 (PNEUMOVAX) Branch Influenza Virus 2012-02-16 Completed [facility] of Vaccine 00:00:00 [facility] PPD (TB) 2012-02-16 Completed [facility] of 00:00:00 [facility] Pneumococcal 2012-02-16 Completed [facility] o f Polysaccharide, 00:00:00 [place] [facility] PPSV23 (PNEUMOVAX) Branch Influenza Virus 2012-02-16 Completed [facility] of Vaccine 00:00:00 [facility] PPD (TB) 2012-02-16 Completed [facility] of 00:00:00 [facility] Pneumococcal 2012-02-16 Completed [facility] o f Polysaccharide, 00:00:00 [place] [facility] PPSV23 (PNEUMOVAX) Branch Influenza Virus 2012-02-16 Completed [facility] of Vaccine 00:00:00 [facility] PPD (TB) 2012-02-16 Completed [facility] of 00:00:00 [facility] Pneumococcal 2012-02-16 Completed [facility] o f Polysaccharide, 00:00:00 [place] [facility] PPSV23 (PNEUMOVAX) Branch Influenza Virus 2012-02-16 Completed [facility] of Vaccine 00:00:00 [facility] PPD (TB) 2012-02-16 Completed [facility] of 00:00:00 [facility] Pneumococcal 2012-02-16 Completed [facility] o f Polysaccharide, 00:00:00 [place] [facility] PPSV23 (PNEUMOVAX) Branch Influenza Virus 2012-02-16 Completed [facility] of Vaccine 00:00:00 [facility] PPD (TB) 2012-02-16 Completed University of 00:00:00 [facility] Pneumococcal 2012-02-16 Completed [facility] o f Polysaccharide, 00:00:00 [place] [facility] PPSV23 (PNEUMOVAX) Branch Influenza Virus 2012-02-16 Completed [facility]it [facility] of Vaccine 00:00:00 [facility] PPD (TB) 2012-02-16 Completed [facility] of 00:00:00 [facility] Pneumococcal 2012-02-16 Completed [facility] o f Polysaccharide, 00:00:00 [place] [facility] PPSV23 (PNEUMOVAX) Branch Influenza Virus 2012-02-16 Completed [facility] of Vaccine 00:00:00 [facility] PPD (TB) 2012-02-16 Completed [facility] of 00:00:00 [facility] Pneumococcal 2012-02-16 Completed [facility] o f Polysaccharide, 00:00:00 [place] [facility] PPSV23 (PNEUMOVAX) Branch Influenza Virus 2012-02-16 Completed [facility] of Vaccine 00:00:00 [facility] PPD (TB) 2012-02-16 Completed [facility] of 00:00:00 [facility] Pneumococcal 2012-02-16 Completed [facility] o f Polysaccharide, 00:00:00 [place] [facility] PPSV23 (PNEUMOVAX) Branch Influenza Virus 2012-02-16 Completed [facility] of Vaccine 00:00:00 [facility] PPD (TB) 2012-02-16 Completed [facility] of 00:00:00 [facility] Pneumococcal 2012-02-16 Completed [facility] o f Polysaccharide, 00:00:00 [place] [facility] PPSV23 (PNEUMOVAX) Branch Influenza Virus 2012-02-16 Completed [facility] of Vaccine 00:00:00 [facility] PPD (TB) 2012-02-16 Completed University of 00:00:00 [facility] Hep B, Adol or Pedi 2011-09-01 Completed [...] Unive rsity of Dosage 00:00:00 [facility] Influenza Virus 2011-02-10 Completed [facility] Vaccine 00:00:00 [facility] Hep B, Adol or Pedi 2011-02-10 Completed Unive rsity of Dosage 00:00:00 [facility] Influenza Virus 2011-02-10 Completed [facility] of Vaccine 00:00:00 [facility] Hep B, Adol or Pedi 2011-02-10 Completed Unive rsity of Dosage 00:00:00 [facility] Influenza Virus 2011-02-10 Completed [facility] of Vaccine 00:00:00 [facility] Hep B, Adol or Pedi 2011-02-10 Completed Unive rsity of Dosage 00:00:00 [facility] Influenza Virus 2011-02-10 Completed [facility] of Vaccine 00:00:00 [facility] Hep B, Adol or Pedi 2011-02-10 Completed Unive rsity of Dosage 00:00:00 [facility] Influenza Virus 2011-02-10 Completed [facility] of Vaccine 00:00:00 [facility] Hep B, Adol or Pedi 2011-02-10 Completed Unive rsity of Dosage 00:00:00 [facility] Influenza Virus 2011-02-10 Completed [facility] of Vaccine 00:00:00 [facility] Hep B, Adol or Pedi 2011-02-10 Completed Unive rsity of Dosage 00:00:00 [facility] Influenza Virus 2011-02-10 Completed [facility] of Vaccine 00:00:00 [facility] Hep B, Adol or Pedi 2011-02-10 Completed Unive rsity of Dosage 00:00:00 [facility] Influenza Virus 2011-02-10 Completed [facility] of Vaccine 00:00:00 [facility] Hep B, Adol or Pedi 2011-02-10 Completed Unive rs[facility] of Dosage 00:00:00 [facility] Influenza Virus 2011-02-10 Completed [facility] of Vaccine 00:00:00 [facility] Hep B, Adol or Pedi 2011-02-10 Completed Unive rsity of Dosage 00:00:00 [facility] Influenza Virus 2011-02-10 Completed [facility] of Vaccine 00:00:00 [facility] Hep B, Adol or Pedi 2011-02-10 Completed Unive rsity of Dosage 00:00:00 [facility] Influenza Virus 2011-02-10 Completed [facility] of Vaccine 00:00:00 [facility] Hep B, Adol or Pedi 2011-02-10 Completed Unive rs[facility] of Dosage 00:00:00 [facility] Influenza Virus 2011-02-10 Completed [facility] of Vaccine 00:00:00 [facility] Hep B, Adol or Pedi 2011-02-10 Completed [facility]ive rs[facility] of Dosage 00:00:00 [facility] Influenza Virus 2011-02-10 Completed [facility] of Vaccine 00:00:00 [facility] Hep B, Adol or Pedi 2011-02-10 Completed [facility]ive rsity of Dosage 00:00:00 [facility] Influenza Virus 2011-02-10 Completed [facility] of Vaccine 00:00:00 [facility] Hep B, Adol or Pedi 2011-02-10 Completed [facility]ive rsity of Dosage 00:00:00 [facility] Influenza Virus 2011-02-10 Completed [facility] of Vaccine 00:00:00 [facility] Hep B, Adol or Pedi 2011-02-10 Completed [facility]ive rs[facility] of Dosage 00:00:00 [facility] Influenza Virus 2011-02-10 Completed [facility] of Vaccine 00:00:00 [facility] Hep B, Adol or Pedi 2011-02-10 Completed [facility]ive rsity of Dosage 00:00:00 [facility] Influenza Virus 2011-02-10 Completed [facility] of Vaccine 00:00:00 [facility] Hep B, Adol or Pedi 2011-02-10 Completed [facility]ive [facility] of Dosage 00:00:00 [facility] Influenza Virus 2011-02-10 Completed [facility] of Vaccine 00:00:00 [facility] Hep B, Adol or Pedi 2011-02-10 Completed [facility]ive rsity of Dosage 00:00:00 [facility] PPD (TB) 2010-11-18 Completed University of 00:00:00 [facility] TDAP (ADACEL) 2010-11-18 Completed University of VACCINE 00:00:00 [facility] PPD (TB) 2010-11-18 Completed University of 00:00:00 [facility] TDAP (ADACEL) 2010-11-18 Completed University of VACCINE 00:00:00 [facility] PPD (TB) 2010-11-18 Completed University of 00:00:00 [facility] TDAP (ADACEL) 2010-11-18 Completed University of VACCINE 00:00:00 [facility] PPD (TB) 2010-11-18 Completed [facility] of 00:00:00 [facility] TDAP (ADACEL) 2010-11-18 Completed University of VACCINE 00:00:00 [facility] PPD (TB) 2010-11-18 Completed [facility] of 00:00:00 [facility] TDAP (ADACEL) 2010-11-18 Completed University of VACCINE 00:00:00 [facility] PPD (TB) 2010-11-18 Completed [facility] of 00:00:00 [facility] TDAP (ADACEL) 2010-11-18 Completed University of VACCINE 00:00:00 [facility] PPD (TB) 2010-11-18 Completed [facility] of 00:00:00 [facility] TDAP (ADACEL) 2010-11-18 Completed University of VACCINE 00:00:00 [facility] PPD (TB) 2010-11-18 Completed University of 00:00:00 [facility] TDAP (ADACEL) 2010-11-18 Completed University of VACCINE 00:00:00 [facility] PPD (TB) 2010-11-18 Completed University of 00:00:00 [facility] TDAP (ADACEL) 2010-11-18 Completed University of VACCINE 00:00:00 [facility] PPD (TB) 2010-11-18 Completed University of 00:00:00 [facility] TDAP (ADACEL) 2010-11-18 Completed University of VACCINE 00:00:00 [facility] PPD (TB) 2010-11-18 Completed University of 00:00:00 [facility] TDAP (ADACEL) 2010-11-18 Completed University of VACCINE 00:00:00 [facility] PPD (TB) 2010-11-18 Completed University of 00:00:00 [facility] TDAP (ADACEL) 2010-11-18 Completed University of VACCINE 00:00:00 [facility] PPD (TB) 2010-11-18 Completed University of 00:00:00 [facility] TDAP (ADACEL) 2010-11-18 Completed University of VACCINE 00:00:00 [facility] PPD (TB) 2010-11-18 Completed [facility] of 00:00:00 [facility] TDAP (ADACEL) 2010-11-18 Completed University of VACCINE 00:00:00 [facility] PPD (TB) 2010-11-18 Completed [facility] of 00:00:00 [facility] TDAP (ADACEL) 2010-11-18 Completed University of VACCINE 00:00:00 [facility] PPD (TB) 2010-11-18 Completed University of 00:00:00 [facility] TDAP (ADACEL) 2010-11-18 Completed University of VACCINE 00:00:00 [facility] PPD (TB) 2010-11-18 Completed University of 00:00:00 [facility] TDAP (ADACEL) 2010-11-18 Completed University of VACCINE 00:00:00 [facility] PPD (TB) 2010-11-18 Completed University of 00:00:00 [facility] TDAP (ADACEL) 2010-11-18 Completed University of VACCINE 00:00:00 [facility] HEPATITIS A 2004-03-02 Completed University of 00:00:00 [facility] HEPATITIS A 2004-03-02 Completed University of 00:00:00 [facility] HEPATITIS A 2004-03-02 Completed University of 00:00:00 [facility] HEPATITIS A 2004-03-02 Completed University of 00:00:00 [facility] HEPATITIS A 2004-03-02 Completed University of 00:00:00 [facility] HEPATITIS A 2004-03-02 Completed [facility] of 00:00:00 [facility] HEPATITIS A 2004-03-02 Completed University of 00:00:00 [facility] HEPATITIS A 2004-03-02 Completed University of 00:00:00 [facility] HEPATITIS A 2004-03-02 Completed [facility] of 00:00:00 [facility] HEPATITIS A 2004-03-02 Completed [facility] of 00:00:00 [facility] HEPATITIS A 2004-03-02 Completed [facility] of 00:00:00 [facility] HEPATITIS A 2004-03-02 Completed [facility] of 00:00:00 [facility] HEPATITIS A 2004-03-02 Completed [facility] of 00:00:00 [facility] HEPATITIS A 2004-03-02 Completed [facility] of 00:00:00 [facility] HEPATITIS A 2004-03-02 Completed [facility] of 00:00:00 [facility] HEPATITIS A 2004-03-02 Completed [facility] of 00:00:00 [facility] HEPATITIS A 2004-03-02 Completed [facility] of 00:00:00 [facility] HEPATITIS A 2004-03-02 Completed [facility] of 00:00:00 [facility] HEPATITIS A 2003-08-01 Completed [facility] of 00:00:00 [facility] HEPATITIS A 2003-08-01 Completed [facility] of 00:00:00 [facility] HEPATITIS A 2003-08-01 Completed [facility] of 00:00:00 [facility] HEPATITIS A 2003-08-01 Completed University of 00:00:00 [facility] HEPATITIS A 2003-08-01 Completed [facility] of 00:00:00 [facility] HEPATITIS A 2003-08-01 Completed [facility] of 00:00:00 [facility] HEPATITIS A 2003-08-01 Completed [facility] of 00:00:00 [facility] HEPATITIS A 2003-08-01 Completed [facility] of 00:00:00 [facility] HEPATITIS A 2003-08-01 Completed [facility] of 00:00:00 [facility] HEPATITIS A 2003-08-01 Completed [facility] of 00:00:00 [facility] HEPATITIS A 2003-08-01 Completed [facility] of 00:00:00 [facility] HEPATITIS A 2003-08-01 Completed [facility] of 00:00:00 [facility] HEPATITIS A 2003-08-01 Completed [facility] of 00:00:00 [facility] HEPATITIS A 2003-08-01 Completed [facility] of 00:00:00 [facility] HEPATITIS A 2003-08-01 Completed [facility] of 00:00:00 [facility] HEPATITIS A 2003-08-01 Completed [facility] of 00:00:00 [facility] HEPATITIS A 2003-08-01 Completed [facility] of 00:00:00 [facility] HEPATITIS A 2003-08-01 Completed [facility] of 00:00:00 [facility] Pneumococcal 2001-10-04 Completed [facility] o f Polysaccharide, 00:00:00 [place] Med ical PPSV23 (PNEUMOVAX) Branch PPD (TB) 2001-10-04 Completed University of 00:00:00 [facility] Pneumococcal 2001-10-04 Completed University o f Polysaccharide, 00:00:00 [place] [facility] ical PPSV23 (PNEUMOVAX) Branch PPD (TB) 2001-10-04 Completed University of 00:00:00 [facility] Pneumococcal 2001-10-04 Completed University o f Polysaccharide, 00:00:00 [place] Med ical PPSV23 (PNEUMOVAX) Branch PPD (TB) 2001-10-04 Completed University of 00:00:00 [facility] Pneumococcal 2001-10-04 Completed University o f Polysaccharide, 00:00:00 [place] Med ical PPSV23 (PNEUMOVAX) Branch PPD (TB) 2001-10-04 Completed University of 00:00:00 [facility] Pneumococcal 2001-10-04 Completed University o f Polysaccharide, 00:00:00 [place] Med ical PPSV23 (PNEUMOVAX) Branch PPD (TB) 2001-10-04 Completed University of 00:00:00 [facility] Pneumococcal 2001-10-04 Completed University o f Polysaccharide, 00:00:00 [place] Med ical PPSV23 (PNEUMOVAX) Branch PPD (TB) 2001-10-04 Completed University of 00:00:00 [facility] Pneumococcal 2001-10-04 Completed University o f Polysaccharide, 00:00:00 [place] Med ical PPSV23 (PNEUMOVAX) Branch PPD (TB) 2001-10-04 Completed University of 00:00:00 [facility] Pneumococcal 2001-10-04 Completed University o f Polysaccharide, 00:00:00 [place] Med ical PPSV23 (PNEUMOVAX) Branch PPD (TB) 2001-10-04 Completed University of 00:00:00 [facility] Pneumococcal 2001-10-04 Completed University o f Polysaccharide, 00:00:00 [place] Med ical PPSV23 (PNEUMOVAX) Branch PPD (TB) 2001-10-04 Completed University of 00:00:00 [facility] Pneumococcal 2001-10-04 Completed University o f Polysaccharide, 00:00:00 [place] Med ical PPSV23 (PNEUMOVAX) Branch PPD (TB) 2001-10-04 Completed University of 00:00:00 [facility] Pneumococcal 2001-10-04 Completed University o f Polysaccharide, 00:00:00 [place] Med ical PPSV23 (PNEUMOVAX) Branch PPD (TB) 2001-10-04 Completed University of 00:00:00 [facility] Pneumococcal 2001-10-04 Completed University o f Polysaccharide, 00:00:00 [place] Med ical PPSV23 (PNEUMOVAX) Branch PPD (TB) 2001-10-04 Completed University of 00:00:00 [facility] Pneumococcal 2001-10-04 Completed University o f Polysaccharide, 00:00:00 [place] Med ical PPSV23 (PNEUMOVAX) Branch PPD (TB) 2001-10-04 Completed University of 00:00:00 [facility] Pneumococcal 2001-10-04 Completed University o f Polysaccharide, 00:00:00 [place] Med ical PPSV23 (PNEUMOVAX) Branch PPD (TB) 2001-10-04 Completed University of 00:00:00 [facility] Pneumococcal 2001-10-04 Completed University o f Polysaccharide, 00:00:00 [place] Med ical PPSV23 (PNEUMOVAX) Branch PPD (TB) 2001-10-04 Completed University of 00:00:00 [facility] Pneumococcal 2001-10-04 Completed University o f Polysaccharide, 00:00:00 [place] Med ical PPSV23 (PNEUMOVAX) Branch PPD (TB) 2001-10-04 Completed University of 00:00:00 [facility] Pneumococcal 2001-10-04 Completed University o f Polysaccharide, 00:00:00 [place] Med ical PPSV23 (PNEUMOVAX) Branch PPD (TB) 2001-10-04 Completed University of 00:00:00 [facility] Pneumococcal 2001-10-04 Completed University o f Polysaccharide, 00:00:00 [place] Med ical PPSV23 (PNEUMOVAX) Branch PPD (TB) 2001-10-04 Completed University of 00:00:00 [facility] Vital Signs Vital Name Observation Time Observation Value Comments Source Systolic blood 2022-05-10 22:00:00 159 mm[Hg] Univer sity of pressure [facility] Diastolic blood 2022-05-10 22:00:00 87 mm[Hg] Unive rsity of [facility] Heart rate 2022-05-10 22:00:00 56 [facility] 2022-05-10 22:00:00 36.61 Amina [facility] 2022-05-10 22:00:00 17 /min Univ [facility] Oxygen saturation in 2022-05-10 22:00:00 98 /min University of Arterial blood by [facility] Pulse oximetry Branch Body weight 2022-05-10 16:29:00 78.926 kg [facility] BMI 2022-05-10 16:29:00 29.87 kg/m2 [facility] Systolic blood 2022-05-08 22:30:00 168 mm[Hg] Univer sity of pressure [facility] Diastolic blood 2022-05-08 22:30:00 85 mm[Hg] Unive rsity of [facility] Heart rate 2022-05-08 22:30:00 68 /[facility] O[facility] saturation in 2022-05-08 22:30:00 100 /min University of Arterial blood by [place] [facility] Pulse oximetry Branch Body temperature 2022-05-08 22:22:00 35.89 Amina Univ ersity of [place] [facility] Respiratory rate 2022-05-08 22:22:00 14 /min Univ ersity of [facility] Body weight 2022-05-08 22:22:00 78.926 kg Universi ty [facility] [place] [facility] BMI 2022-05-08 22:22:00 29.87 kg/m2 [facility] [place] [facility] Systolic blood 2022-05-07 00:00:00 149 mm[Hg] Univer sity of pressure [facility] Diastolic blood 2022-05-07 00:00:00 132 mm[Hg] Unive rsity of pressure [facility] Heart rate 2022-05-07 00:00:00 59 /min Universi ty [facility] [place] [facility] Respiratory rate 2022-05-07 00:00:00 14 /min Univ ersity of [facility] [place] [facility] Oxygen saturation in 2022-05-07 00:00:00 99 /min University of Arterial blood by [facility] Pulse oximetry Branch Body temperature 2022-05-06 [...] of [facility] [place] [facility] Body temperature 2022-04-22 19:50:00 36.67 [...] Universi ty [facility] [place] [facility] Oxygen saturation in 2022-04-22 19:50:00 96 /min University of Arterial blood by [facility] Pulse oximetry Branch Systolic blood 2022-03-05 15:23:00 167 mm[Hg] Univer sity of pressure [facility] Diastolic blood 2022-03-05 15:23:00 105 mm[Hg] Unive rsity of pressure [facility] Heart rate 2022-03-05 15:23:00 49 /min [facility]i ty [facility] [place] [facility] Body temperature 2022-03-05 15:18:00 36.67 Amina Univ ersity of [facility] [place] [facility] Respiratory rate 2022-03-05 15:18:00 18 [...] 21:41:00 86 mm[Hg] Unive rsity of pressure [facility] Heart rate 2022-02-16 21:41:00 51 /min [facility] [place] [facility] Body temperature 2022-02-16 21:41:00 36.56 Amina Univ ersity [facility] [place] [facility] Respiratory rate 2022-02-16 21:41:00 17 /min Univ ersity of [facility] [place] [facility] Oxygen saturation in 2022-02-16 21:41:00 98 /min University of Arterial blood by [facility] Pulse oximetry Branch Body height 2022-02-11 16:02:00 162.6 cm [facility] [place] [facility] Body weight 2022-02-11 16:02:00 79.379 kg [facility] [place] [facility] BMI 2022-02-11 16:02:00 30.04 kg/m2 [facility] [place] [facility] Systolic blood 2021-11-20 13:47:00 165 mm[Hg] Univer sity of pressure [facility] Diastolic blood 2021-11-20 13:47:00 83 mm[Hg] Unive rsity of pressure [facility] Heart rate 2021-11-20 13:47:00 58 /min [facility] [place] [facility] Body temperature 2021-11-20 13:42:00 36.39 Amina Univ ersity [facility] [place] [facility] Respiratory rate 2021-11-20 13:42:00 16 /min Univ ersity [facility] [place] [facility] Body height 2021-11-20 13:42:00 162.6 cm [facility] [place] [facility] Body weight 2021-11-20 13:42:00 84.369 kg [facility] [place] [facility] BMI 2021-11-20 13:42:00 31.93 kg/m2 [...] 2022-03-05 15:18:00 36.67 Amina Univ ersity [facility] [place] [facility] Respiratory rate 2022-03-05 15:18:00 18 /min Univ ersity [facility] [place] [facility] Body height 2022-03-05 15:18:00 162.6 cm [facility] [place] [facility] Body weight 2022-03-05 15:18:00 74.707 kg [facility] [place] [facility] BMI 2022-03-05 15:18:00 28.27 kg/m2 [facility] [place] [facility] Oxygen saturation in 2022-02-16 21:41:00 98 /min University of Arterial blood by [facility] Pulse oximetry Branch Systolic blood 2020-12-08 15:48:00 125 mm[Hg] Method [facility] pressure Diastolic blood 2020-12-08 15:48:00 76 mm[Hg] [facility] pressure Heart rate 2020-12-08 15:48:00 64 /min [facility] Body temperature 2020-12-08 15:48:00 36.61 Amina [facility] Respiratory rate 2020-12-08 15:48:00 17 /min [facility] Body height 2020-12-08 15:48:00 162.6 cm [facility] Body weight 2020-12-08 15:48:00 98.884 kg [facility] BMI 2020-12-08 15:48:00 37.42 kg/m2 [facility] Oxygen saturation in 2020-12-08 15:48:00 97 /min [facility] Arterial blood by Pulse oximetry Respitory Rate 2020-08-30 13:00:00 Memori al Marty Systolic (mm Hg) 2020-08-30 13:00:00 Caesar rial Marty Diastolic (mm Hg) 2020-08-30 13:00:00 Mem orial [place] Systolic (mm Hg) 2020-08-30 11:00:00 Caesar rial Marty Diastolic (mm Hg) 2020-08-30 11:00:00 Mem orial [place] Temperature Oral (F) 2020-08-30 11:00:00 98.4 F [facility] [place] Respitory Rate 2020-08-30 11:00:00 Memori [facility] [place] Respitory Rate 2020-08-30 10:00:00 Memori al [place] Systolic (mm Hg) 2020-08-30 10:00:00 Caesar rial Marty Diastolic (mm Hg) 2020-08-30 10:00:00 Mem orial [facility] Temperature Oral (F) 2020-08-30 00:00:00 96.9 F [facility] [place] Temperature Oral (F) 2020-08-29 11:26:00 97.6 F [facility] Height 2020-08-29 10:30:00 162.56 cm [facility] Weight 2020-08-29 10:30:00 [facility] BMI Calculated 2020-08-29 10:30:00 [place] Hammond Procedures Procedure Date / Time Performing Clinician Source Performed URINALYSIS 2022-05-10 19:36:00 Home Matthews [facility] TROPONIN I 2022-05-10 18:34:00 Home Matthews [facility] COMP. METABOLIC PANEL 2022-05-10 18:34:00 Home Matthews [facility] ([id number]) [facility] CBC WITH DIFF 2022-05-10 18:34:00 Home Matthews [facility] XR CHEST 2 VW 2022-05-10 17:24:58 Home Matthews [facility] CONSENT/REFUSAL FOR 2022-05-10 16:26:23 Doctor Unaeunice, [facility] DIAGNOSIS AND TREATMENT [place] [facility] CONSENT/REFUSAL FOR 2022-05-10 16:26:09 Doctor Unasimone, [facility] DIAGNOSIS AND TREATMENT [place] [facility] URINALYSIS 2022-05-08 22:43:00 Theresa Hickman [facility] XR CHEST 2 VW 2022-05-06 22:56:53 Anette Olea [facility] COMP. METABOLIC PANEL 2022-05-06 22:14:00 Anette Olea [facility] ([id number]) Medical Branch CBC WITH DIFF 2022-05-06 22:14:00 Anette Olea [facility] COVID-19 (ID NOW RAPID 2022-05-06 22:14:00 Anette Olea [facility] TESTING) Medical Branch BASIC METABOLIC PANEL (NA, 2022-04-22 21:23:00 Paulette Gray [facility] K, CL, CO2, GLUCOSE, BUN, Medica l Branch CREATININE, CA) CBC WITH DIFF 2022-04-22 21:23:00 Paulette Gray [place] [facility] CONSENT/REFUSAL FOR 2022-04-22 19:45:46 Doctor Unasimone [facility] DIAGNOSIS AND TREATMENT [place] [facility] SARS-COV-2 COVID-19 2022-03-05 16:09:27 [facility] DIMITRIS-SUCROSE VACCINE 12 Medical [place] YRS+, BIVALENT 0.3ML, IM, (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) FLU 2022-03-05 16:09:27 [facility] VACC(),65+YR,0.5 Medica l Branch ML,IM,ADJUVANTED,QUAD(FLUA D) FLU 2022-03-05 16:09:27 [facility] VACC(),65+YR,0.5 Medica l Branch ML,IM,ADJUVANTED,QUAD(FLUA D) SARS-COV-2 COVID-19 2022-03-05 16:09:27 [facility] DIMITRIS-SUCROSE VACCINE 12 [facility] YRS+, BIVALENT 0.3ML, IM, (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) MAGNESIUM 2022-02-15 09:41:00 Radha Sofia [facility] BASIC METABOLIC PANEL (NA, 2022-02-15 09:41:00 Radha [facility] K, CL, CO2, GLUCOSE, BUN, Medica l Branch CREATININE, CA) CBC WITH DIFF 2022-02-15 09:41:00 Radha [facility] N-TERMINAL PRO-BNP 2022-02-15 09:41:00 Sofia Garcia [facility] CBC WITH DIFF 2022-02-15 09:41:00 Sofia Garcia [facility] BASIC METABOLIC PANEL (NA, 2022-02-15 09:41:00 Sofia Garcia [facility] K, CL, CO2, GLUCOSE, BUN, Medica l Branch CREATININE, CA) MAGNESIUM 2022-02-15 09:41:00 Radha [facility] N-TERMINAL PRO-BNP 2022-02-15 09:41:00 Sofia Garcia [facility] BASIC METABOLIC PANEL (NA, 2022-02-13 09:40:00 Sofia Garcia [facility] K, CL, CO2, GLUCOSE, BUN, Medica l Branch CREATININE, CA) CBC WITH DIFF 2022-02-13 09:40:00 Radha [facility] BASIC METABOLIC PANEL (NA, 2022-02-13 09:40:00 [facility], CO2, GLUCOSE, BUN, Medica l Branch CREATININE, CA) CBC WITH DIFF 2022-02-13 09:40:00 Radha [facility] TROPONIN I 2022-02-11 23:41:00 Radha [facility] N-TERMINAL PRO-BNP 2022-02-11 23:41:00 [facility] 2022-02-11 23:41:00 Radha [facility] N-TERMINAL PRO-BNP 2022-02-11 23:41:00 [facility]OUT[facility] & RHYTHM 2022-02-11 22:15:36 Sofia Garcia [facility] TRANSTHORACIC ECHO (TTE) 2022-02-11 21:26:50 [facility] 2022-02-11 21:26:50 Sofia Garcia [facility] CT ABDOMEN PELVIS W 2022-02-11 07:45:43 Miguelangel Reilly [facility] CT ABDOMEN PELVIS W 2022-02-11 07:45:43 Miguelangel Reilly [facility] RAPID INFLUENZA A/B 2022-02-11 06:54:00 Reilly Means [facility] RAPID INFLUENZA A/B 2022-02-11 06:54:00 Reilly Means [facility] URINALYSIS 2022-02-11 06:45:00 Reilly Means [facility] URINE CULTURE 2022-02-11 06:45:00 Reilly Means [facility] URINALYSIS 2022-02-11 06:45:00 Reilly Means [facility] URINE CULTURE 2022-02-11 06:45:00 Reilly Means [facility] HB ECG ROUTINE & RHYTHM 2022-02-11 05:22:08 Reilly Means [facility] HB ECG ROUTINE & RHYTHM 2022-02-11 05:22:08 Reilly Means [facility] BLOOD CULTURE SCREEN 2022-02-11 04:58:00 Reilly Means [facility] TROPONIN I 2022-02-11 04:58:00 Reilly Means [facility] COMP. METABOLIC PANEL 2022-02-11 04:58:00 Reilly Means [facility] ([id number]) Medical Branch CBC WITH DIFF 2022-02-11 04:58:00 Reilly Measn [facility] PROTHROMBIN TIME / INR 2022-02-11 04:58:00 [facility] ACTIVATED PARTIAL THRMPLAS 2022-02-11 04:58:00 Reilly Means [facility] N-TERMINAL PRO-BNP 2022-02-11 04:58:00 Reilly Means [facility] LACTIC ACID WHOLE BLOOD 2022-02-11 04:58:00 Reilly Means [facility] COVID-19 (ID NOW RAPID 2022-02-11 04:58:00 Reilly Means [facility] TESTING) Medical Branch LAB ONLY COVID 2022-02-11 04:58:00 Reilly Means [facility] INTERPRETATION [facility] CBC WITH DIFF 2022-02-11 04:58:00 Reilly Means [facility] ACTIVATED PARTIAL THRMPLAS 2022-02-11 04:58:00 Reilly Means [facility] PROTHROMBIN TIME / INR 2022-02-11 04:58:00 Reilly Means [facility] COVID-19 (ID NOW RAPID 2022-02-11 04:58:00 Reilly Means [facility] TESTING) Medical Branch COMP. METABOLIC PANEL 2022-02-11 04:58:00 Reilly Means [facility] ([id number]) Medical Branch TROPONIN I 2022-02-11 04:58:00 Reilly Means [facility] N-TERMINAL PRO-BNP 2022-02-11 04:58:00 Reilly Means [facility] BLOOD CULTURE SCREEN 2022-02-11 04:58:00 Reilly Means [facility] LACTIC ACID WHOLE BLOOD 2022-02-11 04:58:00 Reilly Means [facility] LAB ONLY COVID 2022-02-11 04:58:00 Reilly Means [facility] INTERPRETATION [facility] XR CHEST 1 VW 2022-02-11 04:27:42 Reilly Means [facility] XR CHEST 1 VW 2022-02-11 04:27:42 Reilly Means [facility] HOSPITAL ADMISSION 2022-02-10 05:01:00 Doctor Unassigned, [facility] [place] [facility] HOSPITAL ADMISSION 2022-02-10 05:01:00 Doctor Unassigned, [facility] ECG 12-LEAD 2021-07-14 15:14:00 Elan Lira [facility] [id number] 2021-06-17 00:00:00 GRACEA [facility] Clear [facility] GASTROINTESTINAL PANEL 2020-12-08 22:21:00 Jailyn [facility] XR ABDOMEN 1 VW 2020-12-08 18:06:32 Eliseo Arce Ho spital OR [place] < 1 HOUR 2020-09-05 22:39:00 Eliseo Arce spital SURGICAL PATHOLOGY REQUEST 2020-09-05 21:54:00 Eliseo Arce [facility] XR CHEST 1 VW PORTABLE 2020-09-05 19:55:00 [facility] DISCHARGE PATIENT 2020-09-05 17:27:55 Lucas Harris [facility] LA AN ELECTIVE 2020-09-05 16:47:23 [facility], INTRAOPERATIVE 2020-09-05 16:27:00 [facility] 2020-09-05 15:04:00 Sarai Maharaj [facility] TIME (PTT) M. PROTHROMBIN TIME WITH INR 2020-09-05 15:04:00 Mindy Maharaj [facility] M. Plan of Care Planned Activity Planned Date Details Comments Source Future Scheduled 2022-06-11 SHINGLES VACCINES (1 Met [facility] Test 16:10:12 of 2) [code = SHINGLES VACCINES (1 of 2)] Future Scheduled 2022-06-11 BREAST CANCER [facility] Test 16:10:12 SCREENING [code = BREAST CANCER SCREENING] Future Scheduled 2022-06-11 COLONOSCOPY SCREENING [facility] Test 16:10:12 [code = COLONOSCOPY SCREENING] Future Scheduled 2022-06-11 HEPATITIS B VACCINES Met [facility] [place] Test 16:10:12 (1 of 3 - Risk 3-dose series) [code = HEPATITIS B VACCINES (1 of 3 - Risk 3-dose series)] Future Scheduled 2022-06-11 COVID-19 VACCINE (3 - Me [facility] Test 16:10:12 Booster for Pfizer series) [code = COVID-19 VACCINE (3 - Booster for Pfizer series)] Future Scheduled 2022-06-11 65+ PNEUMOCOCCAL [facility] Test 16:10:12 VACCINE (4 - PPSV23 if available, else PCV20) [code = 65+ PNEUMOCOCCAL VACCINE (4 - PPSV23 if available, else PCV20)] Future Scheduled 2022-06-11 INFLUENZA VACCINE Method [facility] Test 16:10:12 [code = INFLUENZA VACCINE] Future Scheduled 2022-06-11 SHINGLES VACCINES (1 Met [facility] Test 16:10:12 of 2) [code = SHINGLES VACCINES (1 of 2)] Future Scheduled 2022-06-11 BREAST CANCER [facility] Test 16:10:12 SCREENING [code = BREAST CANCER SCREENING] Future Scheduled 2022-06-11 COLONOSCOPY SCREENING [facility] Test 16:10:12 [code = COLONOSCOPY SCREENING] Future Scheduled 2022-06-11 HEPATITIS B VACCINES Met [facility] Test 16:10:12 (1 of 3 - Risk 3-dose series) [code = HEPATITIS B VACCINES (1 of 3 - Risk 3-dose series)] Future Scheduled 2022-06-11 COVID-19 VACCINE (3 - Me [facility] Test 16:10:12 Booster for Pfizer series) [code = COVID-19 VACCINE (3 - Booster for Pfizer series)] Future Scheduled 2022-06-11 65+ [facility] 16:10:12 VACCINE (4 - PPSV23 if available, else PCV20) [code = 65+ PNEUMOCOCCAL VACCINE (4 - PPSV23 if available, else PCV20)] Future Scheduled 2022-06-11 INFLUENZA VACCINE Method [facility] Test 16:10:12 [code = INFLUENZA VACCINE] Future Scheduled 2022-06-11 SHINGLES VACCINES (1 Met [facility] Test 16:10:12 of 2) [code = SHINGLES VACCINES (1 of 2)] Future Scheduled 2022-06-11 BREAST CANCER [facility] Test 16:10:12 SCREENING [code = BREAST CANCER SCREENING] Future Scheduled 2022-06-11 COLONOSCOPY SCREENING [facility] Test 16:10:12 [code = COLONOSCOPY SCREENING] Future Scheduled 2022-06-11 HEPATITIS B VACCINES Met [facility] Test 16:10:12 (1 of 3 - Risk 3-dose series) [code = HEPATITIS B VACCINES (1 of 3 - Risk 3-dose series)] Future Scheduled 2022-06-11 COVID-19 VACCINE (3 - Me [facility] Test 16:10:12 Booster for Pfizer series) [code = COVID-19 VACCINE (3 - Booster for Pfizer series)] Future Scheduled 2022-06-11 65+ [facility]CCAL [facility] 16:10:12 VACCINE (4 - PPSV23 if available, else PCV20) [code = 65+ PNEUMOCOCCAL VACCINE (4 - PPSV23 if available, else PCV20)] Future Scheduled 2022-06-11 INFLUENZA VACCINE Method [facility] Test 16:10:12 [code = INFLUENZA VACCINE] Future Scheduled 2022-06-11 SHINGLES VACCINES (1 Met [facility] Test 16:10:12 of 2) [code = SHINGLES VACCINES (1 of 2)] Future Scheduled 2022-06-11 BREAST CANCER [facility] Test 16:10:12 SCREENING [code = BREAST CANCER SCREENING] Future Scheduled 2022-06-11 COLONOSCOPY SCREENING [facility] Test 16:10:12 [code = COLONOSCOPY SCREENING] Future Scheduled 2022-06-11 HEPATITIS B VACCINES Met [facility] Test 16:10:12 (1 of 3 - Risk 3-dose series) [code = HEPATITIS B VACCINES (1 of 3 - Risk 3-dose series)] Future Scheduled 2022-06-11 COVID-19 VACCINE (3 - Me [facility] Test 16:10:12 Booster for Pfizer series) [code = COVID-19 VACCINE (3 - Booster for Pfizer series)] Future Scheduled 2022-06-11 65+ PNEUMOCOCCAL [facility] Test 16:10:12 VACCINE (4 - PPSV23 if available, else PCV20) [code = 65+ PNEUMOCOCCAL VACCINE (4 - PPSV23 if available, else PCV20)] Future Scheduled 2022-06-11 INFLUENZA VACCINE Method [facility] Test 16:10:12 [code = INFLUENZA VACCINE] Future Scheduled 2022-06-11 SHINGLES VACCINES (1 Met [facility] Test 16:10:12 of 2) [code = SHINGLES VACCINES (1 of 2)] Future Scheduled 2022-06-11 BREAST CANCER [facility] Test 16:10:12 SCREENING [code = BREAST CANCER SCREENING] Future Scheduled 2022-06-11 COLONOSCOPY SCREENING [facility] Test 16:10:12 [code = COLONOSCOPY SCREENING] Future Scheduled 2022-06-11 HEPATITIS B VACCINES Met [facility] Test 16:10:12 (1 of 3 - Risk 3-dose series) [code = HEPATITIS B VACCINES (1 of 3 - Risk 3-dose series)] Future Scheduled 2022-06-11 COVID-19 VACCINE (3 - [facility] Test 16:10:12 Booster for Pfizer series) [code = COVID-19 VACCINE (3 - Booster for Pfizer series)] Future Scheduled 2022-06-11 65+ PNEUMOCOCCAL [facility] Test 16:10:12 VACCINE (4 - PPSV23 if available, else PCV20) [code = 65+ PNEUMOCOCCAL VACCINE (4 - PPSV23 if available, else PCV20)] Future Scheduled 2022-06-11 INFLUENZA VACCINE Method [facility] Test 16:10:12 [code = INFLUENZA VACCINE] Future Scheduled 2022-05-10 SHINGLES VACCINES (1 Met [facility] Test 10:21:35 of 2) [code = SHINGLES VACCINES (1 of 2)] Future Scheduled 2022-05-10 BREAST CANCER [facility] Test 10:21:35 SCREENING [code = BREAST CANCER SCREENING] Future Scheduled 2022-05-10 COLONOSCOPY SCREENING [facility] Test 10:21:35 [code = COLONOSCOPY SCREENING] Future Scheduled 2022-05-10 HEPATITIS B VACCINES Met [facility] Test 10:21:35 (1 of 3 - Risk 3-dose series) [code = HEPATITIS B VACCINES (1 of 3 - Risk 3-dose series)] Future Scheduled 2022-05-10 COVID-19 VACCINE (3 - Me [facility] Test 10:21:35 Booster for Pfizer series) [code = COVID-19 VACCINE (3 - Booster for Pfizer series)] Future Scheduled 2022-05-10 65[facility] VACCINE (4 - PPSV23 if available, else PCV20) [code = 65+ PNEUMOCOCCAL VACCINE (4 - PPSV23 if available, else PCV20)] Future Scheduled 2022-05-10 INFLUENZA VACCINE Method [facility] Test 10:21:35 [code = INFLUENZA VACCINE] Future Scheduled 2022-05-10 SHINGLES VACCINES (1 Met [facility] Test 10:21:35 of 2) [code = SHINGLES VACCINES (1 of 2)] Future Scheduled 2022-05-10 BREAST CANCER [facility] Test 10:21:35 SCREENING [code = BREAST CANCER SCREENING] Future Scheduled 2022-05-10 COLONOSCOPY SCREENING [facility] Test 10:21:35 [code = COLONOSCOPY SCREENING] Future Scheduled 2022-05-10 HEPATITIS B VACCINES Met [facility] Test 10:21:35 (1 of 3 - Risk 3-dose series) [code = HEPATITIS B VACCINES (1 of 3 - Risk 3-dose series)] Future Scheduled 2022-05-10 COVID-19 VACCINE (3 - [facility] Test 10:21:35 Booster for Pfizer series) [code = COVID-19 VACCINE (3 - Booster for Pfizer series)] Future Scheduled 2022-05-10 65+ [facility] VACCINE (4 - PPSV23 if available, else PCV20) [code = 65+ PNEUMOCOCCAL VACCINE (4 - PPSV23 if available, else PCV20)] Future Scheduled 2022-05-10 INFLUENZA VACCINE Method [facility] Test 10:21:35 [code = INFLUENZA VACCINE] Future Scheduled 2022-05-06 SHINGLES VACCINES (1 Met [facility] Test 14:03:13 of 2) [code = SHINGLES VACCINES (1 of 2)] Future Scheduled 2022-05-06 BREAST CANCER [facility] Test 14:03:13 SCREENING [code = BREAST CANCER SCREENING] Future Scheduled 2022-05-06 COLONOSCOPY SCREENING [facility] Test 14:03:13 [code = COLONOSCOPY SCREENING] Future Scheduled 2022-05-06 HEPATITIS B VACCINES Met [facility] Test 14:03:13 (1 of 3 - Risk 3-dose series) [code = HEPATITIS B VACCINES (1 of 3 - Risk 3-dose series)] Future Scheduled 2022-05-06 COVID-19 VACCINE (3 - Me [facility] Test 14:03:13 Booster for Pfizer series) [code = COVID-19 VACCINE (3 - Booster for Pfizer series)] Future Scheduled 2022-05-06 65+ PNEUMOCOCCAL [facility] Test 14:03:13 VACCINE (4 - PPSV23 if available, else PCV20) [code = 65+ PNEUMOCOCCAL VACCINE (4 - PPSV23 if available, else PCV20)] Future Scheduled 2022-05-06 INFLUENZA VACCINE Method [facility] Test 14:03:13 [code = INFLUENZA VACCINE] Future Scheduled 2022-04-30 SHINGLES VACCINES (1 Met [facility] Test 01:07:32 of 2) [code = SHINGLES VACCINES (1 of 2)] Future Scheduled 2022-04-30 BREAST CANCER [facility] Test 01:07:32 SCREENING [code = BREAST CANCER SCREENING] Future Scheduled 2022-04-30 COLONOSCOPY SCREENING [facility] Test 01:07:32 [code = COLONOSCOPY SCREENING] Future Scheduled 2022-04-30 HEPATITIS B VACCINES Met [facility] Test 01:07:32 (1 of 3 - Risk 3-dose series) [code = HEPATITIS B VACCINES (1 of 3 - Risk 3-dose series)] Future Scheduled 2022-04-30 COVID-19 VACCINE (3 - [facility] Test 01:07:32 Booster for Pfizer series) [code = COVID-19 VACCINE (3 - Booster for Pfizer series)] Future Scheduled 2022-04-30 65[facility] VACCINE (4 - PPSV23 if available, else PCV20) [code = 65+ PNEUMOCOCCAL VACCINE (4 - PPSV23 if available, else PCV20)] Future Scheduled 2022-04-30 INFLUENZA VACCINE Method [facility] Test 01:07:32 [code = INFLUENZA VACCINE] Future Scheduled 2022-04-30 SHINGLES VACCINES (1 Met [facility] Test 01:07:32 of 2) [code = SHINGLES VACCINES (1 of 2)] Future Scheduled 2022-04-30 BREAST CANCER [facility] Test 01:07:32 SCREENING [code = BREAST CANCER SCREENING] Future Scheduled 2022-04-30 COLONOSCOPY SCREENING [facility] Test 01:07:32 [code = COLONOSCOPY SCREENING] Future Scheduled 2022-04-30 HEPATITIS B VACCINES Met [facility] Test 01:07:32 (1 of 3 - Risk 3-dose series) [code = HEPATITIS B VACCINES (1 of 3 - Risk 3-dose series)] Future Scheduled 2022-04-30 COVID-19 VACCINE (3 - Me [facility] Test 01:07:32 Booster for Pfizer series) [code = COVID-19 VACCINE (3 - Booster for Pfizer series)] Future Scheduled 2022-04-30 65+ PNEUMOCOCCAL [facility] Test 01:07:32 VACCINE (4 - PPSV23 if available, else PCV20) [code = 65+ PNEUMOCOCCAL VACCINE (4 - PPSV23 if available, else PCV20)] Future Scheduled 2022-04-30 INFLUENZA VACCINE Method [facility] Test 01:07:32 [code = INFLUENZA VACCINE] Future Scheduled 2022-04-30 SHINGLES VACCINES (1 Met [facility] Test 01:07:32 of 2) [code = SHINGLES VACCINES (1 of 2)] Future Scheduled 2022-04-30 BREAST CANCER [facility] Test 01:07:32 SCREENING [code = BREAST CANCER SCREENING] Future Scheduled 2022-04-30 COLONOSCOPY SCREENING [facility] Test 01:07:32 [code = COLONOSCOPY SCREENING] Future Scheduled 2022-04-30 HEPATITIS B VACCINES Met [facility] Test 01:07:32 (1 of 3 - Risk 3-dose series) [code = HEPATITIS B VACCINES (1 of 3 - Risk 3-dose series)] Future Scheduled 2022-04-30 COVID-19 VACCINE (3 - [facility] Test 01:07:32 Booster for Pfizer series) [code = COVID-19 VACCINE (3 - Booster for Pfizer series)] Future Scheduled 2022-04-30 65+ [facility]:07[facility] VACCINE (4 - PPSV23 if available, else PCV20) [code = 65+ PNEUMOCOCCAL VACCINE (4 - PPSV23 if available, else PCV20)] Future Scheduled 2022-04-30 INFLUENZA VACCINE Method [facility] Test 01:07:32 [code = INFLUENZA VACCINE] Future Scheduled 2022-04-25 SHINGLES VACCINES (1 Met [facility] Test 01:45:02 of 2) [code = SHINGLES VACCINES (1 of 2)] Future Scheduled 2022-04-25 BREAST CANCER [facility] Test 01:45:02 SCREENING [code = BREAST CANCER SCREENING] Future Scheduled 2022-04-25 COLONOSCOPY SCREENING [facility] Test 01:45:02 [code = COLONOSCOPY SCREENING] Future Scheduled 2022-04-25 HEPATITIS B VACCINES Met [facility] Test 01:45:02 (1 of 3 - Risk 3-dose series) [code = HEPATITIS B VACCINES (1 of 3 - Risk 3-dose series)] Future Scheduled 2022-04-25 COVID-19 VACCINE (3 - [facility] Test 01:45:02 Booster for Pfizer series) [code = COVID-19 VACCINE (3 - Booster for Pfizer series)] Future Scheduled 2022-04-25 65+ [facility]02 VACCINE (4 - PPSV23 if available, else PCV20) [code = 65+ PNEUMOCOCCAL VACCINE (4 - PPSV23 if available, else PCV20)] Future Scheduled 2022-04-25 INFLUENZA VACCINE Method [facility] Test 01:45:02 [code = INFLUENZA VACCINE] Future Scheduled 2022-03-25 SHINGLES VACCINES (1 Met [facility] Test 14:48:42 of 2) [code = SHINGLES VACCINES (1 of 2)] Future Scheduled 2022-03-25 BREAST CANCER [facility] Test 14:48:42 SCREENING [code = BREAST CANCER SCREENING] Future Scheduled 2022-03-25 COLONOSCOPY SCREENING [facility] Test 14:48:42 [code = COLONOSCOPY SCREENING] Future Scheduled 2022-03-25 HEPATITIS B VACCINES Met [facility] Test 14:48:42 (1 of 3 - Risk 3-dose series) [code = HEPATITIS B VACCINES (1 of 3 - Risk 3-dose series)] Future Scheduled 2022-03-25 COVID-19 VACCINE (3 - [facility] Test 14:48:42 Booster for Pfizer series) [code = COVID-19 VACCINE (3 - Booster for Pfizer series)] Future Scheduled 2022-03-25 65+ [facility] 14:48[facility] VACCINE (4 - PPSV23 if available, else PCV20) [code = 65+ PNEUMOCOCCAL VACCINE (4 - PPSV23 if available, else PCV20)] Future Scheduled 2022-03-25 INFLUENZA VACCINE Method [facility] Test 14:48:42 [code = INFLUENZA VACCINE] Future Scheduled 2022-03-25 SHINGLES VACCINES (1 Met [facility] Test 14:48:42 of 2) [code = SHINGLES VACCINES (1 of 2)] Future Scheduled 2022-03-25 BREAST CANCER [facility] Test 14:48:42 SCREENING [code = BREAST CANCER SCREENING] Future Scheduled 2022-03-25 COLONOSCOPY SCREENING [facility] Test 14:48:42 [code = COLONOSCOPY SCREENING] Future Scheduled 2022-03-25 HEPATITIS B VACCINES Met [facility] Test 14:48:42 (1 of 3 - Risk 3-dose series) [code = HEPATITIS B VACCINES (1 of 3 - Risk 3-dose series)] Future Scheduled 2022-03-25 COVID-19 VACCINE (3 - [facility] Test 14:48:42 Booster for Pfizer series) [code = COVID-19 VACCINE (3 - Booster for Pfizer series)] Future Scheduled 2022-03-25 65+ PNEUMOCOCCAL [facility] Test 14:48:42 VACCINE (4 - PPSV23 if available, else PCV20) [code = 65+ PNEUMOCOCCAL VACCINE (4 - PPSV23 if available, else PCV20)] Future Scheduled 2022-03-25 INFLUENZA VACCINE Method [facility] Test 14:48:42 [code = INFLUENZA VACCINE] Future Scheduled 2022-03-25 SHINGLES VACCINES (1 Met [facility] Test 14:48:42 of 2) [code = SHINGLES VACCINES (1 of 2)] Future Scheduled 2022-03-25 BREAST CANCER [facility] Test 14:48:42 SCREENING [code = BREAST CANCER SCREENING] Future Scheduled 2022-03-25 COLONOSCOPY SCREENING [facility] Test 14:48:42 [code = COLONOSCOPY SCREENING] Future Scheduled 2022-03-25 HEPATITIS B VACCINES Met [facility] Test 14:48:42 (1 of 3 - Risk 3-dose series) [code = HEPATITIS B VACCINES (1 of 3 - Risk 3-dose series)] Future Scheduled 2022-03-25 COVID-19 VACCINE (3 - Me [facility] Test 14:48:42 Booster for Pfizer series) [code = COVID-19 VACCINE (3 - Booster for Pfizer series)] Future Scheduled 2022-03-25 65+ [facility] 14:48[facility] VACCINE (4 - PPSV23 if available, else PCV20) [code = 65+ PNEUMOCOCCAL VACCINE (4 - PPSV23 if available, else PCV20)] Future Scheduled 2022-03-25 INFLUENZA VACCINE Method [facility] Test 14:48:42 [code = INFLUENZA VACCINE] Future Scheduled 2022-03-25 SHINGLES VACCINES (1 Met [facility] Test 14:48:42 of 2) [code = SHINGLES VACCINES (1 of 2)] Future Scheduled 2022-03-25 BREAST CANCER [facility] Test 14:48:42 SCREENING [code = BREAST CANCER SCREENING] Future Scheduled 2022-03-25 COLONOSCOPY SCREENING [facility] Test 14:48:42 [code = COLONOSCOPY SCREENING] Future Scheduled 2022-03-25 HEPATITIS B VACCINES Met [facility] Test 14:48:42 (1 of 3 - Risk 3-dose series) [code = HEPATITIS B VACCINES (1 of 3 - Risk 3-dose series)] Future Scheduled 2022-03-25 COVID-19 VACCINE (3 - Me [facility] Test 14:48:42 Booster for Pfizer series) [code = COVID-19 VACCINE (3 - Booster for Pfizer series)] Future Scheduled 2022-03-25 65+ [facility] 14:48:[facility] VACCINE (4 - PPSV23 if available, else PCV20) [code = 65+ PNEUMOCOCCAL VACCINE (4 - PPSV23 if available, else PCV20)] Future Scheduled 2022-03-25 INFLUENZA VACCINE Method [facility] Test 14:48:42 [code = INFLUENZA VACCINE] Future Scheduled 2022-03-25 SHINGLES VACCINES (1 Met [facility] Test 14:48:42 of 2) [code = SHINGLES VACCINES (1 of 2)] Future Scheduled 2022-03-25 BREAST CANCER [facility] Test 14:48:42 SCREENING [code = BREAST CANCER SCREENING] Future Scheduled 2022-03-25 COLONOSCOPY SCREENING [facility] Test 14:48:42 [code = COLONOSCOPY SCREENING] Future Scheduled 2022-03-25 HEPATITIS B VACCINES Met [facility] Test 14:48:42 (1 of 3 - Risk 3-dose series) [code = HEPATITIS B VACCINES (1 of 3 - Risk 3-dose series)] Future Scheduled 2022-03-25 COVID-19 VACCINE (3 - Me [facility] Test 14:48:42 Booster for Pfizer series) [code = COVID-19 VACCINE (3 - Booster for Pfizer series)] Future Scheduled 2022-03-25 65[facility] 14:48:42 VACCINE (4 - PPSV23 if available, else PCV20) [code = 65+ PNEUMOCOCCAL VACCINE (4 - PPSV23 if available, else PCV20)] Future Scheduled 2022-03-25 INFLUENZA VACCINE Method [facility] Test 14:48:42 [code = INFLUENZA VACCINE] Future Scheduled 2022-03-25 SHINGLES VACCINES (1 Met [facility] Test 14:48:42 of 2) [code = SHINGLES VACCINES (1 of 2)] Future Scheduled 2022-03-25 BREAST CANCER [facility] Test 14:48:42 SCREENING [code = BREAST CANCER SCREENING] Future Scheduled 2022-03-25 COLONOSCOPY SCREENING [facility] Test 14:48:42 [code = COLONOSCOPY SCREENING] Future Scheduled 2022-03-25 HEPATITIS B VACCINES Met [facility] Test 14:48:42 (1 of 3 - Risk 3-dose series) [code = HEPATITIS B VACCINES (1 of 3 - Risk 3-dose series)] Future Scheduled 2022-03-25 COVID-19 VACCINE (3 - [facility] Test 14:48:42 Booster for Pfizer series) [code = COVID-19 VACCINE (3 - Booster for Pfizer series)] Future Scheduled 2022-03-25 65+ [facility] 14:48:42 VACCINE (4 - PPSV23 if available, else PCV20) [code = 65+ PNEUMOCOCCAL VACCINE (4 - PPSV23 if available, else PCV20)] Future Scheduled 2022-03-25 INFLUENZA VACCINE Method [facility] Test 14:48:42 [code = INFLUENZA VACCINE] Future Scheduled 2022-03-25 SHINGLES VACCINES (1 Met [facility] Test 14:48:42 of 2) [code = SHINGLES VACCINES (1 of 2)] Future Scheduled 2022-03-25 BREAST CANCER [facility] Test 14:48:42 SCREENING [code = BREAST CANCER SCREENING] Future Scheduled 2022-03-25 COLONOSCOPY SCREENING Me [facility] Test 14:48:42 [code = COLONOSCOPY SCREENING] Future Scheduled 2022-03-25 HEPATITIS B VACCINES Met [facility] Test 14:48:42 (1 of 3 - Risk 3-dose series) [code = HEPATITIS B VACCINES (1 of 3 - Risk 3-dose series)] Future Scheduled 2022-03-25 COVID-19 VACCINE (3 - Me [facility] Test 14:48:42 Booster [...] Future Scheduled 2022-03-25 SHINGLES VACCINES (1 Met [facility] Test 14:48:42 of 2) [code = SHINGLES VACCINES (1 of 2)] Future Scheduled 2022-03-25 BREAST CANCER [facility] Test 14:48:42 SCREENING [code = BREAST CANCER SCREENING] Future Scheduled 2022-03-25 COLONOSCOPY SCREENING [facility] Test 14:48:42 [code = COLONOSCOPY SCREENING] Future Scheduled 2022-03-25 HEPATITIS B VACCINES Met [facility] Test 14:48:42 (1 of 3 - Risk 3-dose series) [code = HEPATITIS B VACCINES (1 of 3 - Risk 3-dose series)] Future Scheduled 2022-03-25 COVID-19 VACCINE (3 - Me [facility] Test 14:48:42 Booster [...] Future Scheduled 2022-03-25 SHINGLES VACCINES (1 Met [facility] Test 14:48:42 of 2) [code = SHINGLES VACCINES (1 of 2)] Future Scheduled 2022-03-25 BREAST CANCER [facility] Test 14:48:42 SCREENING [code = BREAST CANCER SCREENING] Future Scheduled 2022-03-25 COLONOSCOPY SCREENING [facility] Test 14:48:42 [code = COLONOSCOPY SCREENING] Future Scheduled 2022-03-25 HEPATITIS B VACCINES Met [facility] Test 14:48:42 (1 of 3 - Risk 3-dose series) [code = HEPATITIS B VACCINES (1 of 3 - Risk 3-dose series)] Future Scheduled 2022-03-25 COVID-19 VACCINE (3 - [facility] Test 14:48:42 Booster for Pfizer series) [code = COVID-19 VACCINE (3 - Booster for Pfizer series)] Future Scheduled 2022-03-25 65+ PNEUMOCOCCAL [facility] Test 14:48:42 VACCINE (4 - PPSV23 if available, else PCV20) [code = 65+ PNEUMOCOCCAL VACCINE (4 - PPSV23 if available, else PCV20)] Future Scheduled 2022-03-25 INFLUENZA VACCINE Method [facility] Test 14:48:42 [code = INFLUENZA VACCINE] Future Scheduled 2022-03-04 SHINGLES VACCINES (1 Met [facility] Test 14:03:57 of 2) [code = SHINGLES VACCINES (1 of 2)] Future Scheduled 2022-03-04 BREAST CANCER [facility] Test 14:03:57 SCREENING [code = BREAST CANCER SCREENING] Future Scheduled 2022-03-04 COLONOSCOPY SCREENING [facility] Test 14:03:57 [code = COLONOSCOPY SCREENING] Future Scheduled 2022-03-04 HEPATITIS B VACCINES Met [facility] Test 14:03:57 (1 of 3 - Risk 3-dose series) [code = HEPATITIS B VACCINES (1 of 3 - Risk 3-dose series)] Future Scheduled 2022-03-04 COVID-19 VACCINE (3 - [facility] Test 14:03:57 Booster for Pfizer series) [code = COVID-19 VACCINE (3 - Booster for Pfizer series)] Future Scheduled 2022-03-04 65+ [facility] 14:03:57 VACCINE (4 - PPSV23 if available, else PCV20) [code = 65+ PNEUMOCOCCAL VACCINE (4 - PPSV23 if available, else PCV20)] Future Scheduled 2022-03-04 INFLUENZA VACCINE Method [facility] Test 14:03:57 [code = INFLUENZA VACCINE] Future Scheduled 2022-03-04 SHINGLES VACCINES (1 Met [facility] Test 14:03:57 of 2) [code = SHINGLES VACCINES (1 of 2)] Future Scheduled 2022-03-04 BREAST CANCER [facility] Test 14:03:57 SCREENING [code = BREAST CANCER SCREENING] Future Scheduled 2022-03-04 COLONOSCOPY SCREENING [facility] Test 14:03:57 [code = COLONOSCOPY SCREENING] Future Scheduled 2022-03-04 HEPATITIS B VACCINES Met [facility] Test 14:03:57 (1 of 3 - Risk 3-dose series) [code = HEPATITIS B VACCINES (1 of 3 - Risk 3-dose series)] Future Scheduled 2022-03-04 COVID-19 VACCINE (3 - [facility] Test 14:03:57 Booster for Pfizer series) [code = COVID-19 VACCINE (3 - Booster for Pfizer series)] Future Scheduled 2022-03-04 65+ [facility] 14:03:57 VACCINE (4 - PPSV23 if available, else PCV20) [code = 65+ PNEUMOCOCCAL VACCINE (4 - PPSV23 if available, else PCV20)] Future Scheduled 2022-03-04 INFLUENZA VACCINE Method [facility] Test 14:03:57 [code = INFLUENZA VACCINE] Future Scheduled 2022-03-04 SHINGLES VACCINES (1 Met [facility] Test 14:03:57 of 2) [code = SHINGLES VACCINES (1 of 2)] Future Scheduled 2022-03-04 BREAST CANCER [facility] Test 14:03:57 SCREENING [code = BREAST CANCER SCREENING] Future Scheduled 2022-03-04 COLONOSCOPY SCREENING [facility] Test 14:03:57 [code = COLONOSCOPY SCREENING] Future Scheduled 2022-03-04 HEPATITIS B VACCINES Met [facility] Test 14:03:57 (1 of 3 - Risk 3-dose series) [code = HEPATITIS B VACCINES (1 of 3 - Risk 3-dose series)] Future Scheduled 2022-03-04 COVID-19 VACCINE (3 - [facility] Test 14:03:57 Booster for Pfizer series) [code = COVID-19 VACCINE (3 - Booster for Pfizer series)] Future Scheduled 2022-03-04 65+ PNEUMOCOCCAL [facility] Test 14:03:57 VACCINE (4 - PPSV23 if available, else PCV20) [code = 65+ PNEUMOCOCCAL VACCINE (4 - PPSV23 if available, else PCV20)] Future Scheduled 2022-03-04 INFLUENZA VACCINE Method [facility] Test 14:03:57 [code = INFLUENZA VACCINE] Future Scheduled 2022-03-04 SHINGLES VACCINES (1 Met [facility] Test 14:03:57 of 2) [code = SHINGLES VACCINES (1 of 2)] Future Scheduled 2022-03-04 BREAST CANCER [facility] Test 14:03:57 SCREENING [code = BREAST CANCER SCREENING] Future Scheduled 2022-03-04 COLONOSCOPY SCREENING [facility] Test 14:03:57 [code = COLONOSCOPY SCREENING] Future Scheduled 2022-03-04 HEPATITIS B VACCINES Met [facility] Test 14:03:57 (1 of 3 - Risk 3-dose series) [code = HEPATITIS B VACCINES (1 of 3 - Risk 3-dose series)] Future Scheduled 2022-03-04 COVID-19 VACCINE (3 - [facility] Test 14:03:57 Booster for Pfizer series) [code = COVID-19 VACCINE (3 - Booster for Pfizer series)] Future Scheduled 2022-03-04 65+ PNEUMOCOCCAL [facility] Test 14:03:57 VACCINE (4 - PPSV23 if available, else PCV20) [code = 65+ PNEUMOCOCCAL VACCINE (4 - PPSV23 if available, else PCV20)] Future Scheduled 2022-03-04 INFLUENZA VACCINE Method [facility] Test 14:03:57 [code = INFLUENZA VACCINE] Future Scheduled 2022-02-11 SHINGLES VACCINES (1 Met [facility] Test 13:39:12 of 2) [code = SHINGLES VACCINES (1 of 2)] Future Scheduled 2022-02-11 BREAST CANCER [facility] Test 13:39:12 SCREENING [code = BREAST CANCER SCREENING] Future Scheduled 2022-02-11 COLONOSCOPY SCREENING [facility] Test 13:39:12 [code = COLONOSCOPY SCREENING] Future Scheduled 2022-02-11 HEPATITIS B VACCINES Met [facility] Test 13:39:12 (1 of 3 - Risk 3-dose series) [code = HEPATITIS B VACCINES (1 of 3 - Risk 3-dose series)] Future Scheduled 2022-02-11 COVID-19 VACCINE (3 - Me [facility] Test 13:39:12 Booster for Pfizer series) [code = COVID-19 VACCINE (3 - Booster for Pfizer series)] Future Scheduled 2022-02-11 65+ PNEUMOCOCCAL [facility] Test 13:39:12 VACCINE (4 - PPSV23 or PCV20) [code = 65+ PNEUMOCOCCAL VACCINE (4 - PPSV23 or PCV20)] Future Scheduled 2022-02-11 INFLUENZA VACCINE Method [facility] Test 13:39:12 [code = INFLUENZA VACCINE] Future Scheduled 2022-01-29 SHINGLES VACCINES (1 Met [facility] Test 14:07:20 of 2) [code = SHINGLES VACCINES (1 of 2)] Future Scheduled 2022-01-29 BREAST CANCER [facility] Test 14:07:20 SCREENING [code = BREAST CANCER SCREENING] Future Scheduled 2022-01-29 COLONOSCOPY SCREENING [facility] Test 14:07:20 [code = COLONOSCOPY SCREENING] Future Scheduled 2022-01-29 HEPATITIS B VACCINES [facility] Test 14:07:20 (1 of 3 - Risk 3-dose series) [code = HEPATITIS B VACCINES (1 of 3 - Risk 3-dose series)] Future Scheduled 2022-01-29 COVID-19 VACCINE (3 - [facility] Test 14:07:20 Booster for Pfizer series) [code = COVID-19 VACCINE (3 - Booster for Pfizer series)] Future Scheduled 2022-01-29 65+ PNEUMOCOCCAL [facility] Test 14:07:20 VACCINE (4 - PPSV23 or PCV20) [code = 65+ PNEUMOCOCCAL VACCINE (4 - PPSV23 or PCV20)] Future Scheduled 2022-01-29 INFLUENZA VACCINE [facility] Test 14:07:20 [code = INFLUENZA VACCINE] Future Scheduled 2022-01-29 SHINGLES VACCINES (1 Met [facility] Test 14:07:20 of 2) [code = SHINGLES VACCINES (1 of 2)] Future Scheduled 2022-01-29 BREAST CANCER [facility] Test 14:07:20 SCREENING [code = BREAST CANCER SCREENING] Future Scheduled 2022-01-29 COLONOSCOPY SCREENING [facility] Test 14:07:20 [code = COLONOSCOPY SCREENING] Future Scheduled 2022-01-29 HE[facility]ITIS B [facility]ACCINES [facility] [place] Test 14:07:20 (1 of 3 - Risk 3-dose series) [code = HEPATITIS B VACCINES (1 of 3 - Risk 3-dose series)] Future Scheduled 2022-01-29 COVID-19 VACCINE (3 - Me [facility] Test 14:07:20 Booster for Pfizer series) [code = COVID-19 VACCINE (3 - Booster for Pfizer series)] Future Scheduled 2022-01-29 65+ PNEUMOCOCCAL [facility] Test 14:07:20 VACCINE (4 - PPSV23 or PCV20) [code = 65+ PNEUMOCOCCAL VACCINE (4 - PPSV23 or PCV20)] Future Scheduled 2022-01-29 INFLUENZA VACCINE Method [facility] Test 14:07:20 [code = INFLUENZA VACCINE] Future Scheduled 2022-01-29 SHINGLES VACCINES (1 Met [facility] [place] Test 14:07:20 of 2) [code = SHINGLES VACCINES (1 of 2)] Future Scheduled 2022-01-29 BREAST CANCER [facility] Test 14:07:20 SCREENING [code = BREAST CANCER SCREENING] Future Scheduled 2022-01-29 COLONOSCOPY SCREENING [facility] [place] [facility] Test 14:07:20 [code = COLONOSCOPY SCREENING] Future Scheduled 2022-01-29 HEPATITIS B VACCINES Met [facility] [place] Test 14:07:20 (1 of 3 - Risk 3-dose series) [code = HEPATITIS B VACCINES (1 of 3 - Risk 3-dose series)] Future Scheduled 2022-01-29 COVID-19 VACCINE (3 - [facility] [place] [facility] Test 14:07:20 Booster for Pfizer series) [code = COVID-19 VACCINE (3 - Booster for Pfizer series)] Future Scheduled 2022-01-29 65+ PNEUMOCOCCAL [facility] Test 14:07:20 VACCINE (4 - PPSV23 or PCV20) [code = 65+ PNEUMOCOCCAL VACCINE (4 - PPSV23 or PCV20)] Future Scheduled 2022-01-29 INFLUENZA VACCINE Method [facility] Test 14:07:20 [code = INFLUENZA VACCINE] Future Scheduled 2022-01-29 SHINGLES VACCINES (1 Met [facility] [place] Test 14:07:20 of 2) [code = SHINGLES VACCINES (1 of 2)] Future Scheduled 2022-01-29 BREAST CANCER [facility] Test 14:07:20 SCREENING [code = BREAST CANCER SCREENING] Future Scheduled 2022-01-29 COLONOSCOPY SCREENING [facility] [place] [facility] Test 14:07:20 [code = COLONOSCOPY SCREENING] Future Scheduled 2022-01-29 HEPATITIS B VACCINES Met [facility] [place] Test 14:07:20 (1 of 3 - Risk 3-dose series) [code = HEPATITIS B VACCINES (1 of 3 - Risk 3-dose series)] Future Scheduled 2022-01-29 COVID-19 VACCINE (3 - [facility] [place] [facility] Test 14:07:20 Booster for Pfizer series) [code = COVID-19 VACCINE (3 - Booster for Pfizer series)] Future Scheduled 2022-01-29 65+ PNEUMOCOCCAL [facility] Test 14:07:20 VACCINE (4 - PPSV23 or PCV20) [code = 65+ PNEUMOCOCCAL VACCINE (4 - PPSV23 or PCV20)] Future Scheduled 2022-01-29 INFLUENZA VACCINE Method [facility] Test 14:07:20 [code = INFLUENZA VACCINE] Future Scheduled 2022-01-20 SHINGLES VACCINES (1 Met [facility] [place] Test 06:12:34 of 2) [code = SHINGLES VACCINES (1 of 2)] Future Scheduled 2022-01-20 Screening for [facility] Test 06:12:34 malignant neoplasm of cervix (procedure) [code = 316178210] Future Scheduled 2022-01-20 BREAST CANCER [facility] Test 06:12:34 SCREENING [code = BREAST CANCER SCREENING] Future Scheduled 2022-01-20 COLONOSCOPY SCREENING [facility] [place] [facility] Test 06:12:34 [code = COLONOSCOPY SCREENING] Future Scheduled 2022-01-20 HEPATITIS B VACCINES Met [facility] [place] Test 06:12:34 (1 of 3 - Risk 3-dose series) [code = HEPATITIS B VACCINES (1 of 3 - Risk 3-dose series)] Future Scheduled 2022-01-20 COVID-19 VACCINE (3 - [facility] [place] [facility] Test 06:12:34 Booster for Pfizer series) [code = COVID-19 VACCINE (3 - Booster for Pfizer series)] Future Scheduled 2022-01-20 65+ [facility]:12[facility] VACCINE (4 - PPSV23 or PCV20) [code = 65+ PNEUMOCOCCAL VACCINE (4 - PPSV23 or PCV20)] Future Scheduled 2022-01-20 [facility]ZA [facility]ACCINE [facility] Test 06:12:34 [code = INFLUENZA VACCINE] Future Scheduled 2022-01-16 SHINGLES VACCINES (1 Met [facility] [place] Test 12:09:25 of 2) [code = SHINGLES VACCINES (1 of 2)] Future Scheduled 2022-01-16 Screening for [facility] Test 12:09:25 malignant neoplasm of cervix (procedure) [code = 506281460] Future Scheduled 2022-01-16 BREAST CANCER [facility] Test 12:09:25 SCREENING [code = BREAST CANCER SCREENING] Future Scheduled 2022-01-16 COLONOSCOPY SCREENING [facility] [place] [facility] Test 12:09:25 [code = COLONOSCOPY SCREENING] Future Scheduled 2022-01-16 HEPATITIS B VACCINES Met [facility] [place] Test 12:09:25 (1 of 3 - Risk 3-dose series) [code = HEPATITIS B VACCINES (1 of 3 - Risk 3-dose series)] Future Scheduled 2022-01-16 COVID-19 VACCINE (3 - [facility] [place] [facility] Test 12:09:25 Booster for Pfizer series) [code = COVID-19 VACCINE (3 - Booster for Pfizer series)] Future Scheduled 2022-01-16 65+ [facility] 12:09:25 VACCINE (4 - PPSV23 or PCV20) [code = 65+ PNEUMOCOCCAL VACCINE (4 - PPSV23 or PCV20)] Future Scheduled 2022-01-16 INFLUENZA VACCINE Method [facility] Test 12:09:25 [code = INFLUENZA VACCINE] Future Scheduled 2022-01-14 SHINGLES VACCINES (1 Met [facility] [place] Test 04:11:46 of 2) [code = SHINGLES VACCINES (1 of 2)] Future Scheduled 2022-01-14 Screening for [facility] Test 04:11:46 malignant neoplasm of cervix (procedure) [code = [id number]] Future Scheduled 2022-01-14 BREAST CANCER [facility] Test 04:11:46 SCREENING [code = BREAST CANCER SCREENING] Future Scheduled 2022-01-14 COLONOSCOPY SCREENING [facility] [place] [facility] Test 04:11:46 [code = COLONOSCOPY SCREENING] Future Scheduled 2022-01-14 HEPATITIS B VACCINES Met [facility] [place] Test 04:11:46 (1 of 3 - Risk 3-dose series) [code = HEPATITIS B VACCINES (1 of 3 - Risk 3-dose series)] Future Scheduled 2022-01-14 COVID-19 VACCINE (3 - Me [facility] Test 04:11:46 Booster for Pfizer series) [code = COVID-19 VACCINE (3 - Booster for Pfizer series)] Future Scheduled 2022-01-14 65+ PNEUMOCOCCAL [facility] Test 04:11:46 VACCINE (4 - PPSV23 or PCV20) [code = 65+ PNEUMOCOCCAL VACCINE (4 - PPSV23 or PCV20)] Future Scheduled 2022-01-14 INFLUENZA VACCINE [facility] Test 04:11:46 [code = INFLUENZA VACCINE] Future Scheduled 2021-08-26 Screening for [facility] Test 13:02:23 malignant neoplasm of cervix (procedure) [code = [id number]] Future Scheduled 2021-08-26 BREAST CANCER [facility] Test 13:02:23 SCREENING [code = BREAST CANCER SCREENING] Future Scheduled 2021-08-26 COLONOSCOPY SCREENING [facility] [place] [facility] Test 13:02:23 [code = COLONOSCOPY SCREENING] Future Scheduled 2021-08-26 Screening for [facility] Test 13:02:23 malignant neoplasm of lung (procedure) [code = [id number]] Future Scheduled 2021-08-26 SHINGLES VACCINES (#1) [facility] Test 13:02:23 [code = SHINGLES VACCINES (#1)] Future Scheduled 2021-08-26 COVID-19 VACCINE (3 - [facility] [place] [facility] Test 13:02:23 Pfizer risk 4-dose series) [code = COVID-19 VACCINE (3 - Pfizer risk 4-dose series)] Future Scheduled 2021-08-26 65+ PNEUMOCOCCAL [facility] Test 13:02:23 VACCINE (4 of 4 - PPSV23) [code = 65+ PNEUMOCOCCAL VACCINE (4 of 4 - PPSV23)] Future Scheduled 2021-08-26 INFLUENZA VACCINE Method [facility] Test 13:02:23 [code = INFLUENZA VACCINE] Encounters Start End Encounter Admission Attending Care Care Encounter Source Date/Time Date/Time Type Type Clinicians Facility Department ID 2022-02-18 Outpatient CHW ROSEY [id number] [place] 14:30:[address] [place] [address] 2021-07-14 Outpatient JENNY, [facility] [id number] [place] 09:33:51 [facility] 2021-06-02 Outpatient HEMATPOUR, [facility] [id number] [place] 13:58:59 [facility]RENALDOR [facility] 2021-04-28 Outpatient HEMATPOUR, [facility] [id number] [place] 11:21:22 KHASHAYAR Healt [facility] 2021-03-20 Emergency [facility] [id number] Univers [facility]:07[facility] 2020-12-12 Outpatient HEMATPOUR, [facility] [id number] [place] 08:16:46 KHASHAYAR Healt h 2020-10-31 Outpatient HEMATPOUR, [facility] [id number] [place] 09:44:50 KHASHAYAR Healt [facility] 2020-09-30 Outpatient HEMATPOUR, [facility] [id number] [place] 13:16:03 KHASHAYAR Healt h 2022-05-20 2022-05-20 Telephone East, [facility] 1.2.840.114 [id number] Univers 00:00:00 00:00:00 [facility] 350.1.13.10 i ty [id number] [address] 2022-05-10 2022-05-10 Emergency X BYRON, [facility] ERT [id number] Univers 10:30:00 16:31:00 HOME [facility] 2022-05-10 2022-05-10 Emergency Byron, TRAUMA 1.2.840.114 [id number] Univers 10:30:00 16:31:00 Home B CENTER 350.1.13.10 [place] [id number] [address] 2022-05-10 2022-05-10 Telephone East, UN[facility]ERS[facility] 1.2.840.114 [id number] Univers 00:00:00 00:00:00 [facility] 350.1.13.10 i [id number] [address] 2022-05-08 2022-05-08 Emergency X VICK, [facility] ERT [id number] Univers 16:18:00 18:42:00 THERESA [facility] 2022-05-08 2022-05-08 Emergency [facility] 1.2.840.114 [id number] Univers 16:18:00 18:42:00 Theresa BULLOCK 350.1.13.10 ity of [facility] [place] [id number] [address] 2022-05-07 2022-05-07 Telephone [facility] 1.2.840.114 [id number] Univers 00:00:00 00:00:00 [facility] 350.1.13.10 i [place] [id number] [address] 2022-05-06 2022-05-06 [facility] [id number] Univers 14:13:00 18:19:00 ANETTE barbosa [facility] 2022-05-06 2022-05-06 [facility] 1.2.209.926 [id number] Univers 14:13:00 18:19:00 Anette BULLOCK 350.1.13.10 ity of [place] [id number] [address] 2022-05-06 2022-05-06 Telephone [facility] 1.2.840.114 [id number] Univers 00:00:00 00:00:00 [facility] 350.1.13.10 i [place] [id number] [address] 2022-04-22 2022-04-22 [facility] [id number] Univers 13:55:00 17:00:00 PAULETTE [facility] 2022-04-22 2022-04-22 [facility] 1.2.350.150 [id number] Univers 13:55:00 17:00:00 Paulette BULLOCK 350.1.13.10 i ty [place] [id number] [address] 2022-04-07 2022-04-07 Outpatient R ADRIAN, [facility] [id number] Univers 20:40:00 20:40:00 [facility] 2022-04-07 2022-04-07 Telephone Devin, 1.2.840.0 [id number] Univers 00:00:00 00:00:00 Robbi Hairston 20143.1.1 i ty of 3.104.2.7 [place] .3.949842 Medica l .8 [place] 2022-03-05 2022-03-05 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[place] Cardenas 1.2.840.1 [id number] Univers 13:45:00 14:00:00 Visit [facility] 96812.1.1 ity of 3.104.2.7 [place] .3.650836 Medica l .8 [place] 2022-03-05 2022-03-05 Office RonaldJOSÉ ANTONIO 1.2.632.195 [id number] Univers 13:00:00 13:30:00 Visit Santiago [facility] 350.1.13.10 i ty of CL[place]ICS 4[place] [id number] [facility] 089 [place] 2022-03-05 2022-03-05 Outpatient [facility] [id number] Univers 13:00:00 13:00:00 [facility] 2022-02-26 2022-02-26 Outpatient R [facility] [id number] Univers 08:30:00 08:30:00 [facility] 2022-02-26 2022-02-26 Outpatient R [facility] [id number] Univers 08:30:00 08:30:00 [facility] 2022-02-17 2022-02-17 Transition Stevo, 1.2.840.8 [id number] Univers 00:00:00 00:00:00 of Care Isaias Arredondo 81309.1.1 it y of 3.104.2.7 [place] .3.061129 Medica l .8 [place] 2022-02-10 2022-02-16 Inpatient X [facility] [id number] Univers 22:59:00 19:27:00 TOMY [facility] 2022-02-10 2022-02-16 Hospital Reilly Means 1.2.840.1 [id number] Univers 22:59:00 19:27:00 Encounter Ofe Shields 59408.1.1 ity of [place].2.7 [place] .3.020731 Medica l .8 [place] 2022-02-11 2022-02-11 Telephone East, 1.2.840.1 [id number] Univers 00:00:00 00:00:00 Santiago 73228.1.1 ity of 3.104.2.7 [place] .3.292775 Medica l .8 [place] 2022-02-10 2022-02-10 Travel 1.2.840.1 1.2.144.804 [id number] Univers 00:00:00 00:00:00 21543.1.1 350.1.13.10 ity of 3.104.2.7 [place].3.698 [place] .3.539186 084.8 Medica l .8 [place] 2022-01-30 2022-01-30 Telephone East, 1.2.840.6 [id number] Univers 00:00:00 00:00:00 Santiago 32764.1.1 ity of 3.104.2.7 [place] .3.175669 Medica l .8 [place] 2022-01-06 2022-01-06 Orders Doctor FERMIN 1.2.840.114 [id number] Univers 00:00:00 00:00:00 Only Unassigned, JACKELINE 350.1.13.10 ity of [place] [facility] 4.2.7.2.686 Yomi as [id number] [facility] porfirio 009 Branch 2021-12-25 2021-12-25 Orders Doctor FERMIN 1.2.840.114 [id number] Univers 00:00:00 00:00:00 Only Unassigned, JACKELINE 350.1.13.10 ity of [place] [facility] 4.2.7.2.686 Yomi as [id number] Medi porfirio 009 Branch 2021-12-12 2021-12-13 Emergency X SARI, K [facility] ERT [id number] Univers 23:53:00 01:52:00 ity [facility] 2021-12-12 2021-12-13 Emergency Bill Coles [facility] 1.2.840.114 [id number] Univers 23:53:00 01:52:00 Kiersten BULLOCK 350.1.13.10 i ty [facility] 4.2[place]7.2.[place] [id number] [facility] 084 Branch 2021-11-20 2021-11-20 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[facility] UNIVERSIT 1.2.840.114 [id number] Univers 09:45:00 10:00:00 Visit [facility] 350.1.13.10 ity of [facility] 4.2.7.2.[place] [id number] [facility] 316 Branch 2021-11-20 2021-11-20 Office [facility] 1.2.367.861 [id number] Univers 08:30:00 09:00:00 Visit [facility] 350.1.13.10 i ty [place] [id number] [facility] 089 Branch 2021-11-20 2021-11-20 Outpatient R [facility] [id number] Univers 08:30:00 08:30:00 [facility] 2021-11-20 2021-11-20 Outpatient R [facility] [id number] Univers 08:30:00 08:30:00 [facility] 2021-11-20 2021-11-20 Outpatient R [facility] [id number] Univers 08:30:00 08:30:00 [facility] 2021-11-20 2021-11-20 Outpatient R [facility] [id number] Univers 08:30:00 08:30:00 [facility] 2021-10-24 2021-10-24 Emergency X WALKER [facility] ERT [id number] Univers 16:27:00 22:26:00 CHARITY [facility] 2021-10-24 2021-10-24 [facility] [id number] Univers 16:27:00 22:26:00 CHARITY barbosa [facility] 2021-10-24 2021-10-24 Emergency Reilly Means [facility] 1.2.840. 114 [id number] Univers 16:27:00 22:26:[address] 350.1.13.10 ity of [facility] 4.2.7.2.686 [facility] [id number] [address] 2021-10-23 2021-10-24 Emergency [facility] [id number] Univers 20:22:00 02:57:00 [facility] 2021-10-23 2021-10-24 [facility] 1.2.152.980 [id number] Univers 20:22:00 02:57:00 Eric Isreal PERU 350.1.13.10 ity [facility] 4.2.7.2.686 [facility] [id number] [address] 2021-09-07 2021-09-07 Outpatient R SELF, [facility] [id number] Univers 08:00:00 08:00:00 GADIEL barbosa lela rodas [facility] 2021-09-07 2021-09-07 Outpatient R SELF, [facility] [id number] Univers 08:00:00 08:00:00 GADIEL rodas [facility] 2021-08-21 2021-08-21 Outpatient R EAST, [facility] [id number] Univers 10:45:00 10:45:00 SANTIAGO barbosa [facility] 2021-08-21 2021-08-21 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[place] Cardenas 1.2.840.1 [id number] Univers 10:45:00 10:45:00 Visit [facility] 90175.1.1 ity of 3.104.2.7 [place] .3.788233 Medica l .8 [place] 2021-08-21 2021-08-21 Office Shelby Cardenas.2.840.1 [id number] Univers 08:30:00 09:00:00 Visit Santiago 02096.1.1 ity of 3.104.2.7 [place] .3.011420 Medica l .8 [place] 2021-08-21 2021-08-21 Office [facility] 1.2.712.760 [id number] Univers 08:30:00 09:00:00 Visit Santiago [facility] 350.1.13.10 i ty of CL[place] 4[place] [id number] [facility] 089 Branch 2021-08-21 2021-08-21 Outpatient R [facility] [id number] Univers 08:30:00 08:30:00 SANTIAGO [facility] 2021-08-21 2021-08-21 Travel 1.2.840.1 1.2.540.223 [id number] Univers 00:00:00 00:00:00 36511.1.1 350.1.13.10 ity of 3.104.2.7 4[place].3.698 [place] .3.216643 084.8 Medica l .8 [place] 2021-08-14 2021-08-14 Telephone East, 1.2.840.4 [id number] Univers 00:00:00 00:00:00 Santiago 93858.1.1 ity of 3.104.2.7 [place] .3.030622 Medica l .8 [place] 2021-08-13 2021-08-13 Telephone East, 1.2.840.8 [id number] Univers 00:00:00 00:00:00 Santiago 37053.1.1 ity of 3.104.2.7 [place] .3.203438 Medica l .8 [place] 2021-08-11 2021-08-11 Outpatient R [facility] [id number] Univers 08:00:00 08:00:00 SANTIAGO barbosa [facility] 2021-08-05 2021-08-05 Inpatient RAUL Ashely, EDUARDOCL OUTD [id number] [facility] 05:24:00 05:24:00 Mike 31 [facility] 2021-07-20 2021-07-20 Outpatient R EAST, [facility] [id number] Univers 10:00:00 10:00:00 [facility] 2021-07-14 2021-07-14 Office KIMBERLEY Lira 6400 1.2.840.114 [id number] [place] 08:45:00 09:34:[address] 350.1.13.58 Health 9.2.7.2.686 [id number] 1 2021-07-09 2021-07-09 Telephone Hematpour, UTP 6400 1.2.840.114 [id number] [place] 00:00:00 00:00:[address] 350.1.13.58 Health 9.2.7.2.686 [id number] 1 2021-07-09 2021-07-09 Telephone Maryjanepour, UTP 6400 1.2.840.114 [id number] [place] 00:00:00 00:00:[address] 350.1.13.58 Health 9.2.7.2.686 [id number] 1 2021-07-03 2021-07-03 Outpatient R EAST, [facility] [id number] Univers 08:00:00 08:00:00 [facility] 2021-06-17 2021-06-17 Inpatient RAUL Lund, HCACL INTE.02 [id number] [facility] 10:56:00 14:36:[address] [place] [address] 2021-06-15 2021-06-15 Outpatient R SELF, [facility] [id number] Univers 10:15:00 11:07:21 GADIEL rodas [facility] 2021-06-15 2021-06-15 Outpatient R SELF, [facility] [id number] Univers 10:15:00 10:15:00 GADIEL rodas [facility] 2021-06-15 2021-06-15 Outpatient R SELF, [facility] [id number] Univers 10:15:00 10:15:00 GADIEL vogel [facility] 2021-06-15 2021-06-15 Orders Doctor 1.2.840.9 [id number] Univers 00:00:00 00:00:00 Only Unassigned, 74902.1.1 ity of [place] 3.104.2.7 [place] .3.159954 Medica l .8 [place] 2021-06-15 2021-06-15 Travel 1.2.840.1 1.2.260.987 [id number] Univers 00:00:00 00:00:00 83755.1.1 350.1.13.10 ity of 3.104.2.7 4[place].7.3.698 [place] .3.227855 084.8 Medica l .8 [place] 2021-06-11 2021-06-11 [facility] 1.2.958.121 [id number] Univers 00:00:00 00:00:00 [facility] 350.1.13.10 i ty of [place] [id number] [address] 2021-06-11 2021-06-11 Refill [facility], 1.2.840.3 [id number] Univers 00:00:00 00:00:00 [place] 91252.1.1 ity of 3.104.2.7 [place] .3.385810 Medica l .8 [place] 2021-06-05 2021-06-05 Outpatient [facility] [id number] Univers 09:00:00 09:00:00 SANTIAGO ity of [facility] 2021-06-02 2021-06-02 Telephone [facility] 1.2.840.114 [id number] Univers 00:00:00 00:00:00 [facility] 350.1.13.10 i ty [place] [id number] [address] 2021-06-02 2021-06-02 Telephone [facility], 1.2.840.6 [id number] Univers 00:00:00 00:00:00 [place] 26335.1.1 ity of 3.104.2.7 [place] .3.668190 Medica l .8 Branch 2021-05-29 2021-05-29 Telephone East, 1.2.840.3 [id number] Univers 00:00:00 00:00:00 [place] 43075.1.1 ity of 3.104.2.7 [place] .3.667805 Medica l .8 [place] 2021-05-29 2021-05-29 Telephone East, 1.2.840.9 [id number] Univers 00:00:00 00:00:00 [place] 27572.1.1 ity of 3.104.2.7 [place] .3.122979 Medica l .8 [place] 2021-05-25 2021-05-25 Outpatient R RODO, [facility] [id number] Univers 08:00:00 08:00:00 GADIEL barbosa o f [facility] 2021-04-29 2021-04-29 Outpatient R LALA [facility] [id number] Univers 08:00:00 08:00:00 NIKOLAI barbosa [facility] 2021-04-28 2021-04-28 Telephone Hematpour, UTP 6400 1.2.840.114 [id number] [place] 00:00:00 00:00:[address] 350.1.13.58 Health 9.2.7.2.686 [id number] 1 2021-04-28 2021-04-28 Telephone Jailyn, 1.2.840.2 [id number] Methodi 00:00:00 00:00:[address] 3.430.2.7 Hospit a .3.190227 l .8 2021-03-31 2021-03-31 Orders Carol Ann, 1.2.840.1 [id number] 21 [id number] Methodi 00:00:00 00:00:00 Only Sarai Lieberman 82892.1.1 979 s t 3.430.2.7 Hospit a .3.866750 l .8 2021-03-30 2021-03-30 Outpatient R SELF, [facility] [id number] Univers 08:45:00 08:45:00 GADIEL itcharlie o f [facility] 2021-03-24 2021-03-24 Telephone Jailyn, 1.2.840.3 [id number] 21 [id number] Methodi 00:00:00 00:00:[address] 3.430.2.7 Hospit a .3.029669 l .8 2021-02-13 2021-02-13 Telephone Ronald, 1.2.840.0 [id number] [id number] Univers 00:00:00 00:00:00 [place] 11008.1.1 ity of 3.104.2.7 [place] .3.346691 Medica l .8 [place] 2021-01-28 2021-01-28 Outpatient R LALA, [facility] [id number] Univers 08:45:00 09:37:00 NIKOLAI barbosa [facility] 2021-01-28 2021-01-28 Travel 1.2.840.1 1.2.041.494 [id number] 9777 Univers 00:00:00 00:00:00 73722.1.1 350.1.13.10 ity of 3.104.2.7 4[place].7.3.698 [place] .3.067701 084.8 Medica l .8 [place] 2021-01-19 2021-01-19 Telephone Prabhu, 1.2.840.1 [id number] 2100 [id number] Methodi 00:00:00 00:00:[address] 3.430.2.7 Hospit a .3.771027 l .8 2021-01-04 2021-01-04 Letter Shelia 1.2.840.4 [id number] 696 Univers 00:00:00 00:00:00 (Out) Dagoberto Peterson 46292.1.1 ity of 3.104.2.7 [place] .3.583333 Medica l .8 [place] 2021-01-04 2021-01-04 Dmitry Bass 1.2.840.8 [id number] 85060 69Symone Univers 00:00:00 00:00:00 (Out) Dagoberto H 74780.1.1 ity of 3.104.2.7 [place] .3.346139 Medica l .8 [place] 2021-01-03 2021-01-03 Dmitry Bass, 1.2.840.7 [id number] 13270 790 Univers 00:00:00 00:00:00 (Out) Dagoberto H 63494.1.1 ity of 3.104.2.7 [place] .3.893476 Medica l .8 [place] 2021-01-03 2021-01-03 Dmitry Bass, 1.2.840.1 [id number] 790 Univers 00:00:00 00:00:00 (Out) Dagoberto H 45482.1.1 ity of 3.104.2.7 [place] .3.519257 Medica l .8 [place] 2021-01-02 2021-01-02 Outpatient R [facility] [id number] 786 Univers 13:40:00 13:40:00 ity of [facility] 2021-01-02 2021-01-02 Laboratory KalaelbertCuba 1.2.840.1 [id number] 4099 [id number] Univers 12:14:13 12:57:34 Only [facility] ity of 3.104.2.7 [place] .3.478101 Medica l .8 [place] 2021-01-02 2021-01-02 Laboratory TrayGarcia limashola 1.2.840.1 977886 1768 [id number] Univers 12:14:13 12:57:34 Only Lab, [facility] [place] 72964.1.1 ity of 3.104.2.7 [place] .3.837093 Medica l .8 Branch 2021-01-02 2021-01-02 Travel 1.2.840.1 1.2.888.611 4070 2306 Univers 00:00:00 00:00:00 41337.1.1 350.1.13.10 ity of 3.104.2.7 4[place]7.3.698 [place] .3.705500 084.8 Medica l .8 Branch 2021-01-02 2021-01-02 Letter Doctor 1.2.840.1 [id number] 948 Univers 00:00:00 00:00:00 (Out) Unassigned, 84734.1.1 ity of [place] 3.104.2.7 [place] .3.653718 Medica l .8 Branch 2021-01-02 2021-01-02 Letter Doctor 1.2.840.3 [id number] 66522 946 Univers 00:00:00 00:00:00 (Out) Unassigned, 17230.1.1 ity of [place] 3.104.2.7 [place] .3.574132 Medica l .8 Branch 2021-01-02 2021-01-02 Travel 1.2.840.1 1.2.965.786 5595 2306 Univers 00:00:00 00:00:00 04376.1.1 350.1.13.10 ity of 3.104.2.7 4.[place].7.3.698 [place] .3.523897 084.8 Medica l .8 [place] 2021-01-02 2021-01-02 Letter Doctor 1.2.840.8 [id number] 77877 948 Univers 00:00:00 00:00:00 (Out) Unassigned, 47015.1.1 ity of [place] 3.104.2.7 [place] .3.299597 Medica l .8 [place] 2021-01-02 2021-01-02 Letter Doctor 1.2.840.5 [id number] 98560 946 Univers 00:00:00 00:00:00 (Out) Unassigned, 27741.1.1 ity of [place] 3.104.2.7 [place] .3.447794 Medica l .8 Branch 2020-12-22 2020-12-22 Telephone Devin, 1.2.840.0 [id number] 862 64611 Univers 00:00:00 00:00:00 Robbi Hairston 73963.1.1 i ty of 3.104.2.7 [place] .3.721459 Medica l .8 Branch 2020-12-22 2020-12-22 Telephone Devin, 1.2.840.6 [id number] 862 05050 Univers 00:00:00 00:00:00 Robbi Hairston 19102.1.1 i ty of 3.104.2.7 [place] .3.460174 Medica l .8 [place] 2020-12-12 2020-12-12 Office Hematpour, UTP 6400 1.2.840.114 12 [id number] [place] 07:42:02 08:18:[address] 350.1.13.58 Health 9.2.7.2.686 [id number] 1 2020-12-12 2020-12-12 Office H[place], UTP 6400 1.2.840.114 12 [id number] 07:42:02 08:18:[address] 350.1.13.58 9.2.7.2.686 812.3720236 1 2020-12-09 2020-12-09 Telephone Carol Ann, 1.2.840.1 [id number] Methodi 00:00:00 00:00:00 Sarai Corbin. 39948.1.1 316 s t 3.430.2.7 Hospit a .3.255221 l .8 2020-12-08 2020-12-08 [facility], 1.2.840.1 [id number] 2100 515409 Methodi 12:35:54 23:59:00 Encounter Ray 73045.1.[address] 3.430.2.7 Hospit a .3.612584 l .8 2020-12-08 2020-12-08 [facility], 1.2.840.1 [id number] 79499 Methodi 17:25:00 17:30:[address] 3.430.2.7 Hospit a .3.226762 l .8 2020-12-08 2020-12-08 Office [facility], 1.2.840.1 [id number] 89927 55655 Methodi 10:30:00 11:39:56 Visit Ray 25994.1.[address] 3.430.2.7 Hospit a .3.058247 l .8 2020-12-08 2020-12-08 Travel 1.2.840.1 1.2.190.027 9105 004538 Methodi 00:00:00 00:00:[address] 3.430.2.7 0.2.7.3.698 Ho spita .3.023445 084.8 l .8 2020-12-02 2020-12-02 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Santiago Cardenas 1.2.840.1 [id number] Univers 10:20:06 10:36:19 Visit [facility] 92012.1.1 ity of 3.104.2.7 [place] .3.275386 Medica l .8 Branch 2020-12-02 2020-12-02 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Santiago Cardenas 1.2.840.[id number] [facility] 10:20:06 10:36:19 Visit [facility] 67154.1.1 ity of 3.104.2.7 [place] .3.710472 Medica l .8 Branch 2020-12-02 2020-12-02 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[facility] 1.2.840.114 8 [id number] 10:20:06 10:36:19 Visit [facility] 350.1.13.10 CLINICS 4.2.7.2.686 843.7496646 316 2020-12-02 2020-12-02 Office Ronald, 1.2.840.[id number] [facility] 08:31:37 09:01:37 Visit Santiago 31234.1.1 ity of 3.104.2.7 [place] .3.095684 Medica l .8 Branch 2020-12-02 2020-12-02 Outpatient R RONALD [facility] [id number] 304 Univers 09:00:00 09:00:00 SANTIAGO barbosa of [facility] 2020-11-25 2020-11-25 Office Devin, 1.2.840.[id number] [facility] 11:06:30 11:58:14 Visit Robbi Marika 98253.1.1 i ty of 3.104.2.7 [place] .3.518440 Medica l .8 [place] 2020-11-25 2020-11-25 Office Devin, 1.2.840.5 [id number] 42250 865 Univers 11:06:30 11:58:14 Visit Robbi Hairston 70228.1.1 i ty of 3.104.2.7 [place] .3.766164 Medica l .8 [place] 2020-11-25 2020-11-25 [facility] 1.2.840.114 [id number] 65 11:06:30 11:58:14 Visit Robbi Marika [facility] 350.1.13.10 REGIONAL 4.2.7.2.686 MATERNAL [id number] & CHILD [address] [place] [address] 2020-11-25 2020-11-25 Outpatient R [facility] [id number] 288 Univers 11:00:00 11:00:00 ity of [facility] 2020-11-25 2020-11-25 Telephone Devin, 1.2.840.7 [id number] 855 74466 Univers 00:00:00 00:00:00 Robbi Hairston 33454.1.1 i ty of 3.104.2.7 [place] .3.145024 Medica l .8 [place] 2020-11-25 2020-11-25 Refill [place], 1.2.840.8 [id number] 69383 592 Univers 00:00:00 00:00:00 Santiago 37495.1.1 ity of 3.104.2.7 [place] .3.682103 Medica l .8 [place] 2020-11-25 2020-11-25 Travel 1.2.840.1 1.2.460.387 4603 0247 Univers 00:00:00 00:00:00 69606.1.1 350.1.13.10 ity of 3.104.2.7 4.2.7.3.698 [place] .3.263319 084.8 Medica l .8 [place] 2020-11-25 2020-11-25 Orders Doctor 1.2.840.7 [id number] 064 Univers 00:00:00 00:00:00 Only Unassigned, 81129.1.1 ity of [place] 3.104.2.7 [place] .3.394023 Medica l .8 Branch 2020-11-25 2020-11-25 Telephone Beltran, 1.2.840.6 [id number] 855 32971 Univers 00:00:00 00:00:00 Robbi R 01975.1.1 i ty of 3.104.2.7 [place] .3.966191 Medica l .8 Branch 2020-11-25 2020-11-25 Refill [place], 1.2.840.3 [id number] 39483 592 Univers 00:00:00 00:00:00 Santiago 35706.1.1 ity of 3.104.2.7 [place] .3.712823 Medica l .8 Branch 2020-11-25 2020-11-25 Travel 1.2.840.1 1.2.907.524 2082 0247 Univers 00:00:00 00:00:00 47152.1.1 350.1.13.10 ity of 3.104.2.7 4.2.7.3.698 [facility] .3.955180 084.8 Medica l .8 Branch 2020-11-25 2020-11-25 Orders Doctor 1.2.840.3 [id number] 51231 064 Univers 00:00:00 00:00:00 Only Unassigned, 76668.1.1 ity of [place] 3.104.2.7 [place] .3.580162 Medica l .8 Branch 2020-11-25 2020-11-25 Refill [facility] 1.2.940.282 5221 4592 00:00:00 00:00:00 [facility] 350.1.13.10 CLINICS 4.2.7.2.686 543.2021433 089 2020-11-25 2020-11-25 Telephone [place], [facility] 1.2.076.730 5902 0821 00:00:00 00:00:00 Robbi Hairston [facility] 350.1.13.10 [facility] 4.2.7.2.686 MATERNAL 122.6713677 & CHILD [address] [place] [address] 2020-11-14 2020-11-14 Abstract Clark, 1.2.840.1 [id number] 82661 92090 Methodi 00:00:00 00:00:[address] 3.430.2.7 Hospit a .3.714099 l .8 2020-11-14 2020-11-14 Telephone Clark, 1.2.840.1 [id number] 2100 479571 Methodi 00:00:00 00:00:[address] 3.430.2.7 Hospit a .3.746626 l .8 2020-11-12 2020-11-12 Outpatient Marika CARDENAS [facility] [id number] 323 Univers 08:30:00 08:30:00 SANTIAGO barbosa [facility] 2020-11-07 2020-11-07 Telephone Agustina Ortiz UTP 6400 1.2.840.11 4 [id number] MT 00:00:00 00:00:[address] 350.1.13.58 Health 9.2.7.2.686 504.4128759 1 2020-11-07 2020-11-07 Telephone Diana UTP 6400 1.2.840.114 124 869510 00:00:00 00:00:[address] 350.1.13.58 9.2.7.2.686 896.2308973 1 2020-10-31 2020-10-31 Office Hematpour, UTP 6400 1.2.840.114 12 [id number] MT 07:54:00 09:45:[address] 350.1.13.58 Health 9.2.7.2.686 [id number] 1 2020-10-30 2020-10-30 Abstract Rody Maguire UTP 6400 1.2.840.1 14 [id number] MT 00:00:00 00:00:[address] 350.1.13.58 Health 9.2.7.2.686 183.8107563 1 2020-10-29 2020-10-29 Refill [place], 1.2.840.0 [id number] 34805 400 Univers 00:00:00 00:00:00 Santiago 61754.1.1 ity of 3.104.2.7 [place] .3.101309 Medica l .8 Branch 2020-10-29 2020-10-29 Refill [place], 1.2.840.1 [id number] 54500 400 Univers 00:00:00 00:00:00 Santiago 68380.1.1 ity of 3.104.2.7 [place] .3.249720 Medica l .8 [place] 2020-10-27 2020-10-27 Telephone Jailyn, 1.2.840.4 [id number] 21 [id number] Methodi 00:00:00 00:00:[address] 3.430.2.7 Hospit a .3.752762 l .8 2020-10-24 2020-10-24 Telephone Clark, 1.2.840.1 [id number] 2100 740533 Methodi 00:00:00 00:00:[address] 3.430.2.7 Hospit a .3.066938 l .8 2020-10-22 2020-10-22 Outpatient R SELF, [facility] [id number] 868 Univers 13:00:00 13:00:00 GADIEL barbosa o f [facility] 2020-10-22 2020-10-22 Travel 1.2.840.1 1.2.899.231 2701 3839 Univers 00:00:00 00:00:00 79861.1.1 350.1.13.10 ity of 3.104.2.7 4.[place]7.3.698 [place] .3.311970 084.8 Medica l .8 Branch 2020-10-22 2020-10-22 Travel 1.2.840.1 1.2.802.120 9994 3839 Univers 00:00:00 00:00:00 09302.1.1 350.1.13.10 ity of 3.104.2.7 4.2.7.3.698 [place] .3.236439 084.8 Medica l .8 [place] 2020-10-13 2020-10-13 Outpatient R RODO, [facility] [id number] Univers 08:45:00 08:45:00 GADIEL maciely o f [facility] 2020-10-06 2020-10-12 Telemedici [facility], 1.2.840.1 [id number] Methodi 15:30:00 00:08:46 ne Ray 30261.1.[address] 3.430.2.7 Hospit a .3.273546 l .8 2020-09-30 2020-09-30 [facility], 1.2.840.7 [id number] Methodi 00:00:00 00:00:[address] 3.430.2.7 Hospit a .3.318449 l .8 2020-09-21 2020-09-21 [facility] 1.2.840.1 1.2.976.783 2265 394041 Methodi 00:00:00 00:00:[address] 3.430.2.7 0.2.7.3.698 Ho spita .3.050567 084.8 l .8 2020-09-06 2020-09-06 [facility] 1.2.840.1 [id number] 19415 14454 Methodi 17:42:30 23:59:[address] 3.430.2.7 Hospit a .3.468887 l .8 2020-09-06 2020-09-06 [facility], 1.2.840.1 [id number] 2100 014572 Methodi 16:50:00 17:41:00 Encounter Ray 71811.1.[address] 3.430.2.7 Hospit a .3.461133 l .8 2020-09-05 2020-09-05 Hospital [facility], 1.2.840.1 [id number] 2100 632425 Methodi 09:17:00 19:45:00 Encounter Ray [address]409.1.[address] 3.430.2.7 Hospit a .3.009874 l .8 2020-09-05 2020-09-05 Surgery [facility], 1.2.840.1 [id number] 46097 68318 Methodi 11:30:00 13:15:[address] 3.430.2.7 Hospit a .3.577835 l .8 2020-09-05 2020-09-05 Anesthesia Remigio, 1.2.840.1 [id number] 356 [id number] Methodi 11:27:00 12:20:00 Event Johnathanthi 12046.1.1 243 s t V. 3.430.2.7 Hospit a .3.364640 l .8 2020-09-05 2020-09-05 Travel 1.2.840.1 1.2.753.228 2297 589493 Methodi 00:00:00 00:00:[address] 3.430.2.7 0.2.7.3.698 Ho spita .3.629456 084.8 l .8 2020-09-04 2020-09-04 Telephone [place], 1.2.840.1 [id number] Methodi 00:00:00 00:00:00 Sarai M. 76684.1.1 762 s t 3.430.2.7 Hospit a .3.264793 l .8 2020-09-02 2020-09-02 Telephone [place], 1.2.840.7 [id number] Methodi 00:00:00 00:00:00 Sarai M. 64511.1.1 344 s t 3.430.2.7 Hospit a .3.228623 l .8 2020-08-29 2020-08-[id number] 14:10:00 Outpatient r [place] 00 l [facility] 2020-08-29 2020-08-30 Outpatient HEMATPOUR, [facility] CAR 7500 [facility] 05:20:00 09:10:00 REGINAASH 2020-08-06 2020-08-06 Office [place], 1.2.840.0 [id number] 416 Univers 08:03:23 09:17:49 Visit Santiago 16398.1.1 ity of 3.104.2.7 [place] .3.405582 Medica l .8 [place] 2020-08-06 2020-08-06 Outpatient R EAST, [facility] [id number] Univers 08:30:00 08:30:00 SANTIAGO ity of [facility] 2020-07-14 2020-07-14 Outpatient R SELF, [facility] [id number] Univers 09:30:00 09:30:00 GADIEL barbosa o [facility] 2020-07-14 2020-07-14 Travel 1.2.840.1 1.2.497.494 1087 2575 Univers 00:00:00 00:00:00 53220.1.1 350.1.13.10 ity of 3.104.2.7 4.2.7.3.698 [place] .3.691173 084.8 Medica l .8 [place] 2020-07-14 2020-07-14 Orders Doctor 1.2.840.6 [id number] Univers 00:00:00 00:00:00 Only Unassigned, 91383.1.1 ity of [place] 3.104.2.7 [place] .3.230167 Medica l .8 [place] 2020-06-16 2020-06-16 Outpatient R SELF, [facility] [id number] Univers 08:00:00 08:00:00 GADIEL barbosa o f [facility] 2020-06-06 2020-06-06 Telephone [place], 1.2.840.8 [id number] 809 [id number] Univers 00:00:00 00:00:00 Santiago 66509.1.1 ity of 3.104.2.7 [place] .3.463709 Medica l .8 [place] 2020-06-04 2020-06-04 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[place] Cardenas 1.2.840.1 [id number] Univers 09:31:58 09:40:12 Visit [facility] 11033.1.1 ity of 3.104.2.7 [place] .3.168915 Medica l .8 [place] 2020-06-04 2020-06-04 Office JOSÉ ANTONIO Cardenas 1.2.657.510 3164 9729 Univers 08:13:41 09:28:25 Visit Santiago [facility] 350.1.13.10 i ty of CLINICS 4.2.7.2.686 [place] 771.9168151 [facility] porfirio 089 [place] 2020-06-04 2020-06-04 Outpatient R [facility] [id number] Univers 08:30:00 08:30:00 SANTIAGO itcharlie of [facility] 2020-06-04 2020-06-04 Orders Doctor 1.2.840.3 [id number] 079 Univers 00:00:00 00:00:00 Only Unassigned, 31272.1.1 ity of [place] 3.104.2.7 [place] .3.821911 Medica l .8 [place] 2020-05-19 2020-05-19 Telephone Ronald, 1.2.840.0 [id number] 804 [id number] Univers 00:00:00 00:00:00 Santiago 27850.1.1 ity of 3.104.2.7 [place] .3.710742 Medica l .8 [place] 2020-04-24 2020-04-24 Telephone [place], 1.2.840.6 [id number] 799 53613 Univers 00:00:00 00:00:00 Santiago 76130.1.1 ity of 3.104.2.7 [place] .3.099737 Medica l .8 [place] 2020-04-14 2020-04-14 Outpatient R [facility] [id number] Univers 09:00:00 09:00:00 SANTIAGO ity of [facility] 2020-04-14 2020-04-14 Telephone Ronald, 1.2.840.8 [id number] 797 65072 Univers 00:00:00 00:00:00 Santiago 24788.1.1 ity of 3.104.2.7 [place] .3.070361 Medica l .8 [place] 2020-03-31 2020-03-31 Outpatient R EAST, [facility] [id number] Univers 08:30:00 08:30:00 SANTIAGO ity of [facility] 2020-03-03 2020-03-03 Outpatient R SELF, [facility] [id number] Univers 08:00:00 08:00:00 GADIEL barbosa o f [facility] 2020-03-03 2020-03-03 Outpatient R SELF, [facility] [id number] Univers 08:00:00 08:00:00 GADIEL barbosa o f [facility] 2020-03-03 2020-03-03 Travel 1.2.840.1 1.2.800.627 3499 5480 Univers 00:00:00 00:00:00 96451.1.1 350.1.13.10 ity of 3.104.2.7 4.2.7.3.698 [place] .3.814927 084.8 Medica l .8 [place] 2020-02-06 2020-02-06 Telephone [place], 1.2.840.1 [id number] 781 [id number] Univers 00:00:00 00:00:00 Santiago 31541.1.1 ity of 3.104.2.7 [place] .3.288091 Medica l .8 [place] 2020-01-26 2020-01-26 Emergency Caridad, 1.2.840.8 [id number] 779 [id number] Univers 10:03:00 13:05:00 Cynise 76539.1.1 ity of 3.104.2.7 [place] .3.297748 Medica l .8 Branch 2020-01-26 2020-01-26 Travel 1.2.840.1 1.2.882.309 3413 0120 Univers 00:00:00 00:00:00 43322.1.1 350.1.13.10 ity of 3.104.2.7 4.2.7.3.698 [place] .3.676055 084.8 Medica l .8 Branch 2020-01-25 2020-01-25 Outpatient R EAST, [facility] [id number] Univers 08:30:00 08:30:00 SANTIAGO ity of [facility] 2020-01-25 2020-01-25 Telemedici [place], 1.2.840.2 [id number] Univers 07:36:49 08:06:49 ne Visit Santiago 76641.1.1 ity of 3.104.2.7 [place] .3.049683 Medica l .8 [place] 2020-01-16 2020-01-16 Outpatient R EAST, [facility] [id number] Univers 08:00:00 08:00:00 SANTIAGO ity [facility] 2020-01-16 2020-01-16 Telephone East, 1.2.840.7 [id number] Univers 00:00:00 00:00:00 Santiago 35362.1.1 ity of 3.104.2.7 [place] .3.356694 Medica l .8 [place] 2020-01-14 2020-01-14 Outpatient R SELF, [facility] [id number] Univers 08:00:00 08:00:00 GADIEL barbosa o f [facility] 2019-12-31 2019-12-31 Outpatient R SELF, [facility] [id number] Univers 08:45:00 08:45:00 GADIEL ity o f [facility] 2019-10-17 2019-10-17 Outpatient R EAST, [facility] [id number] Univers 08:30:00 08:30:00 SANTIAGO ity [facility] 2019-10-12 2019-10-12 Outpatient R EAST, [facility] [id number] Univers 13:00:00 13:00:00 SANTIAGO ity [facility] 2019-10-12 2019-10-12 Telemedici [place], 1.2.840.4 [id number] Univers 07:38:30 08:08:30 ne Visit Santiago 88963.1.1 ity of 3.104.2.7 [place] .3.145876 Medica l .8 [place] 2019-10-08 2019-10-08 Outpatient R SELF, [facility] [id number] Univers 10:15:00 10:15:00 GADIEL ity o f [facility] 2019-10-03 2019-10-03 Case Xiao, 1.2.840.4 [id number] Univers 00:00:00 00:00:00 Management Michael Corbin 87948.1.1 i ty of 3.104.2.7 [place] .3.498023 Medica l .8 [place] 2019-09-27 2019-09-27 Telephone East, 1.2.840.2 [id number] [id number] Univers 00:00:00 00:00:00 Santiago 13425.1.1 ity of 3.104.2.7 [place] .3.208540 Medica l .8 [place] 2019-09-04 2019-09-04 Refill [place], 1.2.840.4 [id number] Univers 00:00:00 00:00:00 Santiago 65123.1.1 ity of 3.104.2.7 [place] .3.782476 Medica l .8 [place] 2019-07-24 2019-07-24 Outpatient R [facility] [id number] Univers 08:30:00 08:30:00 SANTIAGO ity [facility] 2019-07-17 2019-07-17 Outpatient R [facility] [id number] Univers 10:00:00 10:00:00 SANTIAGO ity [facility] 2019-06-15 2019-06-15 Telephone East, 1.2.840.8 [id number] [id number] Univers 00:00:00 00:00:00 Santiago 75253.1.1 ity of 3.104.2.7 [place] .3.171898 Medica l .8 [place] 2019-06-13 2019-06-13 Telephone Team, [facility] 1.2.840.0 [id number] Univers 00:00:00 00:00:00 Health 62856.1.1 ity of [place] 3.104.2.7 [place] .3.225559 Medica l .8 [place] 2019-05-10 2019-05-10 Refill [place], 1.2.840.6 [id number] Univers 00:00:00 00:00:00 Santiago 62388.1.1 ity of 3.104.2.7 [place] .3.643240 Medica l .8 [place] 2019-05-09 2019-05-09 Refill Ronald, 1.2.840.7 [id number] Univers 00:00:00 00:00:00 Santiago 16621.1.1 ity of 3.104.2.7 [place] .3.277127 Medica l .8 [place] 2019-04-30 2019-04-30 Outpatient R RODO [facility] [id number] Univers 10:15:00 10:33:05 GADIEL ity o f [facility] 2019-04-18 2019-04-18 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Santiago Cardenas 1.2.840.1 [id number] Univers 10:00:39 10:44:31 Visit [facility] 70570.1.1 ity of 3.104.2.7 [place] .3.128153 Medica l .8 [place] 2019-04-18 2019-04-18 Outpatient R RONALD [facility] [id number] Univers 10:00:00 10:44:31 SANTIAGO ity of [facility] 2019-04-18 2019-04-18 Office Ronald, 1.2.840.8 [id number] 005 Univers 08:27:44 09:53:27 Visit Santiago 17429.1.1 ity of 3.104.2.7 [place] .3.146491 Medica l .8 [place] 2019-04-18 2019-04-18 Orders Doctor 1.2.840.6 [id number] Univers 00:00:00 00:00:00 Only Unassigned, 73453.1.1 ity of [place] 3.104.2.7 [place] .3.347705 Medica l .8 [place] 2019-04-11 2019-04-11 Refill Ronald, 1.2.840.1 [id number] Univers 00:00:00 00:00:00 Santiago 37079.1.1 ity of 3.104.2.7 [place] .3.472700 Medica l .8 [place] 2019-04-09 2019-04-09 Refill East, 1.2.840.2 [id number] Univers 00:00:00 00:00:00 Santiago 21536.1.1 ity of 3.104.2.7 [place] .3.689820 Medica l .8 [place] 2019-04-03 2019-04-03 Telephone Team, [facility] 1.2.840.8 [id number] Univers 00:00:00 00:00:00 Health 96197.1.1 [place] .3.645426 Medica l .8 [place] 2019-03-27 2019-03-27 Telephone Self, 1.2.840.3 [id number] Univers 00:00:00 00:00:00 Gadiel 68089.1.1 ity of 3.104.2.7 [place] .3.468240 Medica l .8 [facility] 2019-01-17 2019-01-17 Office Ronald, 1.2.840.9 [id number] Univers 07:37:21 10:32:51 Visit Santiago 39337.1.1 ity of 3.104.2.7 [place] .3.530249 Medica l .8 [place] 2019-01-04 2019-01-12 Office Eveline Hansen 1.2.840.7 [id number] Univers 11:19:32 11:08:05 Visit Mariela 15904.1.1 ity of 3.104.2.7 [place] .3.221199 Medica l .8 [place] 2019-01-10 2019-01-10 Telephone Stanislav, 1.2.840.3 [id number] Univers 00:00:00 00:00:00 Eladio Inman 46630.1.1 ity of 3.104.2.7 [place] .3.740935 Medica l .8 [place] 2018-12-18 2018-12-18 Office Geraldine 1.2.840.5 [id number] Univers 08:48:45 09:13:43 Visit Leyda 12948.1.1 it y of 3.104.2.7 [place] .3.104346 Medica l .8 [place] 2018-10-30 2018-10-30 Telephone [place], 1.2.840.1 [id number] Univers 00:00:00 00:00:00 Santiago 10423.1.1 ity of 3.104.2.7 [place] .3.514346 Medica l .8 [place] 2018-10-23 2018-10-23 Orders Doctor 1.2.840.5 [id number] Univers 00:00:00 00:00:00 Only Unassigned, 15600.1.1 ity of [place] 3.104.2.7 [place] .3.998213 Medica l .8 [place] 2018-10-23 2018-10-23 Nurse Selvin, 1.2.840.2 [id number] Univers 00:00:00 00:00:00 Triage Stefanie 18497.1.1 ity of 3.104.2.7 [place] .3.032348 Medica l .8 [place] 2018-10-23 2018-10-23 Telephone Self, 1.2.840.3 [id number] Univers 00:00:00 00:00:00 Gadiel 15276.1.1 ity of 3.104.2.7 [place] .3.651517 Medica l .8 [place] 2018-10-20 2018-10-20 Telephone Self, 1.2.840.7 [id number] Univers 00:00:00 00:00:00 Gadiel 21656.1.1 ity of 3.104.2.7 [place] .3.793433 Medica l .8 [place] Results Test Description Test Time Test Comments Results Result Comments Source COMP. METABOLIC PANEL (38163) 2022-05-06 22:42:55 Test Item Value Reference Range Interpretation Comme nts NA (test code = 6104430390) 137 mmol/L 135-145 K (test code = 5522496518) 3.2 mmol/L 3.5-5.0 L CL (test code = 8119612367) 100 mmol/L 98-108 CO2 TOTAL (test code = 6385299184) 23 mmol/L 23-31 AGAP (test code = 1545775926) 2-16 BUN (test code = 6450618452) 41 mg/dL 7-23 H GLUCOSE (test code = 2263116616) 98 mg/dL 70-110 CREATININE (test code = 1.55 mg/dL 0.50-1.04 H 3014659488) TOTAL BILI (test code = 0.8 mg/dL 0.1-1.9 3119834446) CALCIUM (test code = 2890008002) 8.3 mg/dL 8.6-10.6 L T PROTEIN (test code = 8539466605) 6.9 g/dL 6.3-8.2 ALBUMIN (test code = 2067157624) 3.9 g/dL 3.5-5.0 ALK PHOS (test code = 6855892027) 89 U/L 34-122 ALTv (test code = 1742-6) 101 U/L 5-35 H AST(SGOT) (test code = 1970222294) 203 U/L 13-40 H eGFR (test code = 6677379284) mL/min/1.73m2 KYLE (test code = KYLE) Association [...] tests). Lab Interpretation (test code = Abnormal 08811-7) [facility] WITH [id number] 22:33:52 Test Item Value Reference Range Interpretation [...] RDW-SD (test code = 46.3 fL 39.0-49.9 03231-5) RDW-CV (test code = 13.5 % 12.0-15.5 788-0) PLT (test code = See_Comment L [Automated 777-3) message] The sy stem which generated this result transmitted reference range : 166 - 358 10*3/ ?L. The reference r abbey was not used to interpret this result as normal/abnormal . MPV (test code = 9.5 fL 9.5-12.9 40236-2) NRBC/100 WBC (test See_Comment [Automat ed code = 5657886367) message] The system which generated this result transmitted reference range : 0.0 - 10.0 /100 WBCs. The refer ence range was not u sed to interpret th is result as normal/abnormal . NRBC x10^3 (test code See_Comment [Auto mated = 4225228071) message] The s ystem which generated this result transmitted reference range : 10*3/?L. The reference range was not used to interpret this result as normal/abnormal . GRAN MAT (NEUT) % 58.3 % (test code = 770-8) IMM GRAN % (test code 0.80 % = 5943414014) LYMPH % (test code = 28.1 % 736-9) MONO % (test code = 12.0 % 5905-5) EOS % (test code = 0.5 % 713-8) BASO % (test code = 0.3 % 706-2) GRAN MAT x10^3(ANC) 2.29 10*3/uL 1.88-7.09 (test code = 2837553074) IMM GRAN x10^3 (test 0.03 10*3/uL 0.00-0.06 code = 3824980287) LYMPH x10^3 (test code 1.10 10*3/uL 1.32-3.29 L = 731-0) MONO x10^3 (test code 0.47 10*3/uL 0.33-0.92 = 742-7) EOS x10^3 (test code = 0.03-0.39 L 711-2) BASO x10^3 (test code 0.01-0.07 = 704-7) Lab Interpretation Abnormal (test code = 56320-8) [facility] (NA, K, CL, CO2, GLUCOSE, BUN, CREATININE, CA)2022-04-22 21:43:42 Test Item Value Reference Range Interpretation Comments NA (test code = 142 mmol/L 135-145 0078237537) K (test code = 3.5 mmol/L 3.5-5.0 8469678682) CL (test code = 106 mmol/L 98-108 6839115675) CO2 TOTAL (test code = 26 mmol/L 23-31 0283948738) AGAP (test code = 2-16 7090117741) BUN (test code = 29 mg/dL 7-23 H 2328467215) GLUCOSE (test code = 84 mg/dL 70-110 2581850165) CREATININE (test code = 1.16 mg/dL 0.50-1.04 H 2140392452) CALCIUM (test code = 8.2 mg/dL 8.6-10.6 L 7707168161) eGFR (test code = mL/min/1.73m2 7454970152) KYLE (test code = KYLE) Association of [...] tests). Lab Interpretation Abnormal (test code = 09648-2) [facility] WITH [id number] 21:33:01 Test Item Value Reference Range Interpretation Comments WBC (test code = See_Comment [Automated 3950-2) message] The sy stem which generated this [...] (test code = 50.7 fL 39.0-49.9 H 06290-2) RDW-CV (test code = 14.6 % 12.0-15.5 788-0) PLT (test code = See_Comment L [Automated 777-3) message] The sy stem which generated this result transmitted reference range : 166 - 358 10*3/ ?L. The reference r abbey was not used to interpret this result as normal/abnormal . MPV (test code = 8.8 fL 9.5-12.9 L 62174-3) NRBC/100 WBC (test See_Comment [Automat ed code = 5374296575) message] The system which generated this result transmitted reference range : 0.0 - 10.0 /100 WBCs. The refer ence range was not u sed to interpret th is result as normal/abnormal . NRBC x10^3 (test code See_Comment [Auto mated = 4424878175) message] The s ystem which generated this result transmitted reference range : 10*3/?L. The reference range was not used to interpret this result as normal/abnormal . GRAN MAT (NEUT) % 70.9 % (test code = 770-8) IMM GRAN % (test code 0.50 % = 2387965384) LYMPH % (test code = 17.4 % 736-9) MONO % (test code = 9.0 % 5905-5) EOS % (test code = 1.7 % 713-8) BASO % (test code = 0.5 % 706-2) GRAN MAT x10^3(ANC) 4.60 10*3/uL 1.88-7.09 (test code = 5899356865) IMM GRAN x10^3 (test 0.03 10*3/uL 0.00-0.06 code = 8744454965) LYMPH x10^3 (test code 1.13 10*3/uL 1.32-3.29 L = 731-0) MONO x10^3 (test code 0.58 10*3/uL 0.33-0.92 = 742-7) EOS x10^3 (test code = 0.11 10*3/uL 0.03-0.39 711-2) BASO x10^3 (test code 0.03 10*3/uL 0.01-0.07 = 704-7) Lab Interpretation Abnormal (test code = 27789-2) [facility] CULTURE [id number] 06:01:07 Test Item Value Reference Range Interpretation Comments Blood Culture-Aerobic No organisms No growth Previo us (test code = 35056-5) isolated prelim inary verified result was Culture [...] Culture-Anaerobic isolated preliminar y (test code = 70213-3) verifi ed result was Culture In Progress [...] CDT Lab Interpretation Normal (test code = 53167-6) [facility] CULTURE [id number] 06:01:07 Test Item Value Reference Range Interpretation Comments Blood Culture-Aerobic No organisms No growth Previo us (test code = 27994-7) isolated prelim inary verified result was Culture [...] Culture-Anaerobic isolated preliminar y (test code = 55660-9) verifi ed result was Culture In Progress [...] CDT Lab Interpretation Normal (test code = 40896-1) [facility] [id number] 06:01:07 Test Item Value Reference Range Interpretation Comments Blood Culture-Aerobic No organisms No growth Previo us (test code = 56997-9) isolated prelim inary verified result was Culture [...] Culture-Anaerobic isolated preliminar y (test code = 78705-2) verifi ed result was Culture In Progress [...] CDT Lab Interpretation Normal (test code = 79058-7) [facility] [id number] 10:49:10 Test Item Value Reference Range Interpretation Comments NT-proBNP (test code 2660 pg/mL See_Comment H [Autom ated = 2434870819) message] The system which generated this result transmitted reference range : <=125. The reference range was not used to interpret this result as normal/abnormal . KYLE (test code = KYLE) Biotin has been reported to cause a negative bias, interpret results relative to patient's use of biotin. Lab Interpretation Abnormal (test code = 26032-8) [facility] [id number] 10:49:10 Test Item Value Reference Range Interpretation Comments NT-proBNP (test code 2660 pg/mL See_Comment H [Autom ated = 3481969387) message] The system which generated this result transmitted reference range : <=125. The reference range was not used to interpret this result as normal/abnormal . KYLE (test code = KYLE) Biotin has been reported to cause a negative bias, interpret results relative to patient's use of biotin. Lab Interpretation Abnormal (test code = 78329-2) [facility] METABOLIC PANEL (NA, K, CL, CO2, GLUCOSE, BUN, CREATININE, CA)2022-02-15 10:44:07 Test Item Value Reference Range Interpretation Comments NA (test code = 134 mmol/L 135-145 L 3630453963) K (test code = 3.2 mmol/L 3.5-5 L 9931652378) CL (test code = 98 mmol/L 98-108 2689757655) CO2 TOTAL (test code = 27 mmol/L 23-31 8931861680) AGAP (test code = 2-16 5019952603) BUN (test code = 19 mg/dL 7-23 3439968099) GLUCOSE (test code = 102 mg/dL 70-110 3470706229) CREATININE (test code = 0.95 mg/dL 0.5-1.04 4200550361) CALCIUM (test code = 8.5 mg/dL 8.6-10.6 L 2454566399) eGFR (test code = mL/min/1.73m2 7065976063) KYLE (test code = KYLE) Association of [...] tests). Lab Interpretation Abnormal (test code = 03576-6) [facility]2022-09-26 10:44:07 Test Item Value Reference Range Interpretation Comments MAGNESIUM (test code = 2125281601) 1.8 mg/dL 1.7-2.4 Lab Interpretation (test code = Normal 21090-5) [facility]2022-09-26 10:44:07 Test Item Value Reference Range Interpretation Comments MAGNESIUM (test code = 7441507333) 1.8 mg/dL 1.7-2.4 Lab Interpretation (test code = Normal 30031-4) [facility] (NA, K, CL, CO2, GLUCOSE, BUN, CREATININE, CA)2022-02-15 10:44:07 Test Item Value Reference Range Interpretation Comments NA (test code = 134 mmol/L 135-145 L 5384919173) K (test code = 3.2 mmol/L 3.5-5.0 L 3951331070) CL (test code = 98 mmol/L 98-108 5370590091) CO2 TOTAL (test code = 27 mmol/L 23-31 3303971658) AGAP (test code = 2-16 1305116916) BUN (test code = 19 mg/dL 7-23 8213009169) GLUCOSE (test code = 102 mg/dL 70-110 7960707766) CREATININE (test code = 0.95 mg/dL 0.50-1.04 2471548377) CALCIUM (test code = 8.5 mg/dL 8.6-10.6 L 5418520052) eGFR (test code = mL/min/1.73m2 5985110393) KYLE (test code = KYLE) Association of [...] tests). Lab Interpretation Abnormal (test code = 39424-4) [facility] WITH [id number] 10:12:06 Test Item Value Reference Range Interpretation [...] RDW-SD (test code = 47.8 fL 39-49.9 22185-1) RDW-CV (test code = 15.2 % 12-15.5 788-0) PLT (test code = See_Comment L [Automated 777-3) message] The sy stem which generated this result transmitted reference range : 166 - 358 10*3/ ?L. The reference r abbey was not used to interpret this result as normal/abnormal . MPV (test code = 8.9 fL 9.5-12.9 L 30609-8) NRBC/100 WBC (test See_Comment [Automat ed code = 6422825684) message] The system which generated this result transmitted reference range : 0.0 - 10.0 /100 WBCs. The refer ence range was not u sed to interpret th is result as normal/abnormal . NRBC x10^3 (test code See_Comment [Auto mated = 7857402426) message] The s ystem which generated this result transmitted reference range : 10*3/?L. The reference range was not used to interpret this result as normal/abnormal . GRAN MAT (NEUT) % 65.9 % (test code = 770-8) IMM GRAN % (test code 0.30 % = 9290589543) LYMPH % (test code = 21.0 % 736-9) MONO % (test code = 10.1 % 5905-5) EOS % (test code = 2.4 % 713-8) BASO % (test code = 0.3 % 706-2) GRAN MAT x10^3(ANC) 2.49 10*3/uL 1.88-7.09 (test code = 3539857862) IMM GRAN x10^3 (test 0-0.06 code = 2502944025) LYMPH x10^3 (test code 0.79 10*3/uL 1.32-3.29 L = 731-0) MONO x10^3 (test code 0.38 10*3/uL 0.33-0.92 = 742-7) EOS x10^3 (test code = 0.09 10*3/uL 0.03-0.39 711-2) BASO x10^3 (test code 0.01-0.07 = 704-7) Lab Interpretation Abnormal (test code = 05869-1) [facility] WITH [id number] 10:12:06 Test Item Value Reference Range Interpretation [...] RDW-SD (test code = 47.8 fL 39.0-49.9 04480-5) RDW-CV (test code = 15.2 % 12.0-15.5 788-0) PLT (test code = See_Comment L [Automated 777-3) message] The sy stem which generated this result transmitted reference range : 166 - 358 10*3/ ?L. The reference r abbey was not used to interpret this result as normal/abnormal . MPV (test code = 8.9 fL 9.5-12.9 L 24910-9) NRBC/100 WBC (test See_Comment [Automat ed code = 8160728703) message] The system which generated this result transmitted reference range : 0.0 - 10.0 /100 WBCs. The refer ence range was not u sed to interpret th is result as normal/abnormal . NRBC x10^3 (test code See_Comment [Auto mated = 2200364863) message] The s ystem which generated this result transmitted reference range : 10*3/?L. The reference range was not used to interpret this result as normal/abnormal . GRAN MAT (NEUT) % 65.9 % (test code = 770-8) IMM GRAN % (test code 0.30 % = 7150856651) LYMPH % (test code = 21.0 % 736-9) MONO % (test code = 10.1 % 5905-5) EOS % (test code = 2.4 % 713-8) BASO % (test code = 0.3 % 706-2) GRAN MAT x10^3(ANC) 2.49 10*3/uL 1.88-7.09 (test code = 4630913873) IMM GRAN x10^3 (test 0.00-0.06 code = 7378972805) LYMPH x10^3 (test code 0.79 10*3/uL 1.32-3.29 L = 731-0) MONO x10^3 (test code 0.38 10*3/uL 0.33-0.92 = 742-7) EOS x10^3 (test code = 0.09 10*3/uL 0.03-0.39 711-2) BASO x10^3 (test code 0.01-0.07 = 704-7) Lab Interpretation Abnormal (test code = 23453-8) [facility] WITH [id number] 11:18:28 Test Item Value Reference Range Interpretation [...] RDW-SD (test code = 49.5 fL 39-49.9 00465-1) RDW-CV (test code = 15.5 % 12-15.5 788-0) PLT (test code = See_Comment L [Automated 777-3) message] The sy stem which generated this result transmitted reference range : 166 - 358 10*3/ ?L. The reference r abbey was not used to interpret this result as normal/abnormal . MPV (test code = 11.4 fL 9.5-12.9 05333-9) IPF % (test code = 8.7 % 1.3-7.7 H Platelet count 9581868159) measured by fluorescence method. NRBC/100 WBC (test See_Comment [Automat ed code = 5668216615) message] The system which generated this result transmitted reference range : 0.0 - 10.0 /100 WBCs. The refer ence range was not u sed to interpret th is result as normal/abnormal . NRBC x10^3 (test code See_Comment [Auto mated = 4353804813) message] The s ystem which generated this result transmitted reference range : 10*3/?L. The reference range was not used to interpret this result as normal/abnormal . GRAN MAT (NEUT) % 62.0 % (test code = 770-8) IMM GRAN % (test code 0.80 % = 9872454186) LYMPH % (test code = 22.2 % 736-9) MONO % (test code = 9.6 % 5905-5) EOS % (test code = 5.1 % 713-8) BASO % (test code = 0.3 % 706-2) GRAN MAT x10^3(ANC) 2.21 10*3/uL 1.88-7.09 (test code = 5537401535) IMM GRAN x10^3 (test 0.03 10*3/uL 0-0.06 code = 4458427661) LYMPH x10^3 (test code 0.79 10*3/uL 1.32-3.29 L = 731-0) MONO x10^3 (test code 0.34 10*3/uL 0.33-0.92 = 742-7) EOS x10^3 (test code = 0.18 10*3/uL 0.03-0.39 711-2) BASO x10^3 (test code 0.01-0.07 = 704-7) POLYCHROMASIA (test 2+ See_Comment [Automa arpit code = 09140-5) message] The system which generated this result [...] . Lab Interpretation Abnormal (test code = 10437-6) [facility] METABOLIC PANEL (NA, K, CL, CO2, GLUCOSE, BUN, CREATININE, CA)2022-02-13 10:39:07 Test Item Value Reference Range Interpretation Comments NA (test code = 136 mmol/L 135-145 4839888801) K (test code = 4.1 mmol/L 3.5-5 1143608627) CL (test code = 102 mmol/L 98-108 0125809772) CO2 TOTAL (test code = 27 mmol/L 23-31 5884765997) AGAP (test code = 2-16 5623331226) BUN (test code = 22 mg/dL 7-23 7853174818) GLUCOSE (test code = 94 mg/dL 70-110 5607708892) CREATININE (test code = 0.94 mg/dL 0.5-1.04 2191535976) CALCIUM (test code = 8.1 mg/dL 8.6-10.6 L 0140799901) eGFR (test code = mL/min/1.73m2 8234149216) KYLE (test code = KYLE) Association of [...] tests). Lab Interpretation Abnormal (test code = 56785-2) [facility]22-[facility]-12 01:50:10 Test Item Value Reference Range Interpretation Comments Height (test code = in 6954902481) Weight (test code = lbs 8407505741) Systolic BP (test code mmHg = 5901850342) Diastolic BP (test code mmHg = 0141277006) Heart Rate (test code = bpm 9605758512) BSA (test code = 1.85 m2 5876998364) IVS (test code = 1.22 cm 9814826858) Interventricular Septum 1.22 cm Diastolic Thickness by 2D (test code = 0502591) LVIDD (test code = 5.00 cm 2685015001) Left Ventricular End 117.9 mL Diastolic Volume by Teichholz Method (test code = 2465470) LVPWD (test code = 1.22 cm 0352992121) PW (test code = 1.22 cm 0.6-1.9 4654631540) EF(Teich) (test code = 74.60 % 2204591881) LVIDS (test code = 2.80 cm 2181540849) Left Ventricular End 29.9 mL Systolic Volume by Teichholz Method (test code = 2512616) FS (test code = 44 % 6823639760) EF - 2D (test code = 74.60 % 11055436) LVOT diameter (test 2.16 cm code = 2206820425) LVOT area (test code = 3.70 cm2 4312358731) Ao root diam (test code 3.40 cm = 1465640123) Aortic root (test code 3.4 cm = 5767017423) Ao root annulus (test 3.4 cm code = 9175282547) LA size (test code = 3.4 cm 4634267529) TR Peak Spencer (test code 330.0 cm/s = 7806839546) Triscuspid Valve mmHg Regurgitation Peak Gradient (test code = 3191192747) PV REGURGITATION PEAK mmHg GRADIENT (test code = 6385179093) PI dec slope (test code 137.20 cm/s2 = 0637664677) LAV(MOD-sp4) (test code 102.90 mL = 2861440698) MV Peak E Spencer (test 84.1 cm/s code = 6789212632) MV Peak A Spencer (test 40.1 cm/s code = 2015838010) E/A ratio (test code = ratio 6926291585) MV valve area p 1/2 3.70 cm2 method (test code = 2339412946) MV dec slope (test code 413.00 cm/s2 = 1391743458) MV P1/2t max spencer (test 83.70 cm/s code = 0226144068) MV Prop V (test code = 41.80 cm/s 4786860011) Tapse (test code = 1.83 cm 5807478053) LVOT stroke volume 96.90 cm3 (test code = 4473768082) LVOT peak spencer (test 125.5 cm/s code = 7704916340) LVOT mn grad (test code mmHg = 4250649442) AV LVOT peak gradient mmHg (test code = 3808285712) LVOT peak VTI (test 26.4 cm code = 8765891779) LV V1 mean (test code = 78.10 cm/s 0892377788) Aortic valve mean 103.7 cm/s velocity (test code = 1094565043) Ao peak spencer (test code 165.6 cm/s = 6025548332) Ao VTI (test code = 37.2 cm 1502203724) AV area by cont VTI 2.6 cm2 (test code = 4220378485) AV area peak spencer (test 2.8 cm2 code = 4254816549) Ao max PG (test code = 11.00 mm[Hg] 3329921820) AV peak gradient (test mmHg code = 3566684699) AV valve area (test 2.60 cm2 code = 3534173280) AV mean gradient (test mmHg code = 2098532135) LA Volume Index (BP) 55.2 mL/m2 (test code = 4625565611) LA volume (BP) (test 102.1 mL code = 1262142492) LAV(MOD-sp2) (test code 86.10 mL = 6889994348) A2C EF (test code = 61.20 % 7365005954) EF(sp2-el) (test code = 61.60 % 1011479363) SV(MOD-sp2) (test code 47.10 mL = 6842034395) LV Diastolic Volume 70.7 mL (BP) (test code = 4566691327) A4C EF (test code = 53.00 % 4857953051) EF(MOD-bp) (test code = 56.70 % 1639364348) EF(sp4-el) (test code = 53.90 % 2254818282) LV Systolic Volume (BP) 30.6 mL (test code = 3804636428) SV(MOD-bp) (test code = 40.10 mL 5545495229) SV(MOD-sp4) (test code 32.40 mL = 5861933351) SV(sp4-el) (test code = 33.10 mL 0313460078) EF (test code = 9610779454) Left Ventricular Stroke 40.1 mL Volume by 2-D Biplane-MOD (test code = 3563273) LV Diastolic Volume 38.2 mL/m2 Index (BP) (test code = 5037875338) LV Systolic Volume 16.5 mL/m2 Index (BP) (test code = 1756675359) Radiology Study observation (narrative) (test code = 68403-3) KYLE (test code = KYLE) ?Left?Ventricle: Left [...] [facility] [id number] 05:45:01 Test Item Value Reference Interpretation Comments Range TROPONIN I (test See_Comment [Automated code = 4480751431) message] The system which generated this result [...] biotin. Lab Interpretation Normal (test code = 52840-0) [facility] [id number] 05:41:40 Test Item Value Reference Range Interpretation Comments NT-proBNP (test code 4250 pg/mL See_Comment H [Autom ated = 5120389829) message] The system which generated this result transmitted reference range : <=125. The reference range was not used to interpret this result as normal/abnormal . KYLE (test code = KYLE) Biotin has been reported to cause a negative bias, interpret results relative to patient's use of biotin. Lab Interpretation Abnormal (test code = 30748-3) [facility] [id number] 05:35:21 Test Item Value Reference Range Interpretation Comments APTT Patient (test See_Comment [Automat ed code = 3173-2) message] The system which generated this result transmitted reference range : 23 - 38 Seconds . The reference range was not used to interpr et this result as normal/abnormal . KYLE (test code = KYLE) The [facility] patient population mean normal value for aPTT is 30 seconds. Lab Interpretation Normal (test code = 72740-4) [facility] [id number] 05:35:21 Test Item Value Reference Range Interpretation Comments APTT Patient (test See_Comment [Automat ed code = 3173-2) message] The system which generated this result transmitted reference range : 23 - 38 Seconds . The reference range was not used to interpr et this result as normal/abnormal . KYLE (test code = KYLE) The [facility] patient population mean normal value for aPTT is 30 seconds. Lab Interpretation Normal (test code = 37925-2) [facility] / [id number] 05:33:21 Test Item Value Reference Range Interpretation [...] tions. Lab Interpretation (test Normal code = 54159-6) [facility] METABOLIC PANEL (40049)2022-02-11 05:33:21 Test Item Value Reference Range Interpretation Comments NA (test code = 137 mmol/L 135-145 8258908473) K (test code = 4.3 mmol/L 3.5-5 6508925104) CL (test code = 103 mmol/L 98-108 0757717381) CO2 TOTAL (test code = 25 mmol/L 23-31 1981991782) AGAP (test code = 2-16 9420537503) BUN (test code = 19 mg/dL 7-23 7055078874) GLUCOSE (test code = 120 mg/dL 70-110 H 1738568273) CREATININE (test code = 1.15 mg/dL 0.5-1.04 H 4102254572) TOTAL BILI (test code = 0.9 mg/dL 0.1-1.9 5018913527) CALCIUM (test code = 8.9 mg/dL 8.6-10.6 9893237627) T PROTEIN (test code = 6.6 g/dL 6.3-8.2 8725911181) ALBUMIN (test code = 4.0 g/dL 3.5-5 8237944529) ALK PHOS (test code = 73 U/L 34-122 9211196152) ALTv (test code = 18 U/L 5-35 1742-6) AST(SGOT) (test code = 31 U/L 13-40 4643380930) eGFR (test code = mL/min/1.73m2 1726202076) KYLE (test code = KYLE) Association of [...] tests). Lab Interpretation Abnormal (test code = 80023-1) [facility]. METABOLIC PANEL (68616)2022-02-11 05:33:21 Test Item Value Reference Range Interpretation Comments NA (test code = 137 mmol/L 135-145 4332833063) K (test code = 4.3 mmol/L 3.5-5.0 9088200246) CL (test code = 103 mmol/L 98-108 7650568426) CO2 TOTAL (test code = 25 mmol/L 23-31 1472926131) AGAP (test code = 2-16 2219397640) BUN (test code = 19 mg/dL 7-23 9632584181) GLUCOSE (test code = 120 mg/dL 70-110 H 7921557592) CREATININE (test code = 1.15 mg/dL 0.50-1.04 H 6701013137) TOTAL BILI (test code = 0.9 mg/dL 0.1-1.6 5831189079) CALCIUM (test code = 8.9 mg/dL 8.6-10.6 9818623971) T PROTEIN (test code = 6.6 g/dL 6.3-8.2 8016973330) ALBUMIN (test code = 4.0 g/dL 3.5-5.0 4309756359) ALK PHOS (test code = 73 U/L 34-122 2084164695) ALTv (test code = 18 U/L 5-35 1742-6) AST(SGOT) (test code = 31 U/L 13-40 9013226863) eGFR (test code = mL/min/1.73m2 2401586544) KYLE (test code = KYLE) Association of [...] tests). Lab Interpretation Abnormal (test code = 30637-1) [facility]HR[facility] / [id number] 05:33:21 Test Item Value Reference Range Interpretation [...] tions. Lab Interpretation (test Normal code = 98314-8) [facility]CB WITH [id number] 05:14:37 Test Item Value Reference Range Interpretation Comments WBC (test code = See_Comment [Automated 9290-2) message] The sy stem which generated this [...] RDW-SD (test code = 47.9 fL 39-49.9 89229-5) RDW-CV (test code = 14.9 % 12-15.5 788-0) PLT (test code = See_Comment L [Automated 777-3) message] The sy stem which generated this result transmitted reference range : 166 - 358 10*3/ ?L. The reference r abbey was not used to interpret this result as normal/abnormal . MPV (test code = 9.1 fL 9.5-12.9 L 25187-5) NRBC/100 WBC (test See_Comment [Automat ed code = 8236255517) message] The system which generated this result transmitted reference range : 0.0 - 10.0 /100 WBCs. The refer ence range was not u sed to interpret th is result as normal/abnormal . NRBC x10^3 (test code See_Comment [Auto mated = 8510024500) message] The s ystem which generated this result transmitted reference range : 10*3/?L. The reference range was not used to interpret this result as normal/abnormal . GRAN MAT (NEUT) % 78.5 % (test code = 770-8) IMM GRAN % (test code 0.20 % = 6644944834) LYMPH % (test code = 11.6 % 736-9) MONO % (test code = 8.4 % 5905-5) EOS % (test code = 1.1 % 713-8) BASO % (test code = 0.2 % 706-2) GRAN MAT x10^3(ANC) 3.45 10*3/uL 1.88-7.09 (test code = 4650551644) IMM GRAN x10^3 (test 0-0.06 code = 3397407241) LYMPH x10^3 (test code 0.51 10*3/uL 1.32-3.29 L = 731-0) MONO x10^3 (test code 0.37 10*3/uL 0.33-0.92 = 742-7) EOS x10^3 (test code = 0.05 10*3/uL 0.03-0.39 711-2) BASO x10^3 (test code 0.01-0.07 = 704-7) Lab Interpretation Abnormal (test code = 99035-2) [facility] Coronavirus 2019 [id number] 18:08:00 Test Item Value Reference Range Interpretation [...] det ection of nucleic acids f rom sllEGRA-EzF-3 v irus and diagnosis of SA RS-CoV-2 virusinfection. It is an Emergency Use Authorization ( EUA) testauthorized by the [place] FDA. BASIC METABOLIC [id number] 09:37:00 Test Item Value Reference Range Interpretation [...] = 9.0 mg/dL 8.0-10.5 N CA) PROTHROMBIN [id number] 09:32:00 Test Item Value Reference Range Interpretation [...] (to prevent recurrent infar ct). 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 [facility] - XR CHEST 1 [id number] 00:00:00 [facility] : 1955 Sex: F FAX: Carmenza Kelly DO [phone] [place]: St: ADM FAX: Mike Scales MD [phone] FAX: Bahman Chopra [phone] Name: LIO WATTS [facility] : 1955 Age/S: 66/F [address] [place] [address] Blvd Unit #: [id number] Loc: [place] [address] Phys: Bahman Chopra Acct: [id number] Dis Date: Status: ADM IN PHONE #: [phone] Exam Date: 06/17/2021 1320 FAX #: [phone] Reason: WATCHMAN EXAMS: CPT CODE: [id number] XR CHEST 1 V 27018 PROCEDURE INFORMATION: Exam: XR Chest Exam date [...] Chopra Technologist: RT Taylor(R) Trnscrd Date/Time/By: 06/17/2021 (6327) : By: [email or web address] Orig Print D/T: S: 06/17/2021 (1887) PAGE 1 Signed ReportCOVID 19 Asymptomatic IH [...] co-inf ections withother patho gens.This test detects nathna th viable (live) and non-viable,SARS -CoV, and [...] high or waivedcomplexit y tests. BASIC METABOLIC [id number] 11:37:00 Test Item Value Reference Range Interpretation [...] code = 9.0 mg/dL 8.0-10.5 N CA) DQHVJWKGKW0629-00-55 11:37:00 Test Item Value Reference Range Interpretation Comments PREALBUMIN (test code = PREALB) 24.3 mg/dL 16.0-40.0 N PROTHROMBIN [id number] 11:03:00 Test Item Value Reference Range Interpretation [...] (to prevent recurrent infar ct). CBC W/AUTO ZGNF5827-45-76 10:59:00 Test Item Value Reference Range Interpretation [...] 0.0-0.1 N NRBC#) - XR CHEST 2 [id number] 00:00:[address] [facility] [place]: LIO WATTS : 1955 Sex: F FAX: Carmenza Kelly DO [phone] [place]: St: PRE FAX: Y Mike Lund MD [phone] Name: LIO WATTS [facility] [place] : 1955 Age/S: 66/F [address] [place] [address] Unit #: [id number] Loc: [place], [place] [address]Zuiv: Mike Lund MD Acct: [id number] Dis Date: Status: PRE [facility] [place] PHONE #: [phone] Exam Date: 06/16/20211119 FAX #: [phone] Reason: PREOP EXAMS: CPT CODE: [id number] XR CHEST 2 V 90101 PROCEDURE INFORMATION: Exam: XR Chest Exam date [...] MD Technologist: RT Andree(R) Trnscrd Date/Time/By: 06/16/2021 (6756) : By: [email or web address] Orig Print D/T: S: 06/16/2021 (8150) PAGE 1 Signed ReportGastrointestinal irlup2672-83-14 04:35:05 Test Item Value Reference Interpretation Comments [...] Rotavirus PCR (test Not Detected code = 3764234) Salmonella PCR (test Not Detected code = [...] PCR Not Detected (test code = 7124) [facility] jubyqre3997-66-00 19:30:47 Test Item Value Reference Range Interpretation Comments Case number (test [id number] code = 1707556) Surgical pathology See link below for PDF report (test code = Lab Report 2255) Result status (test This is Supplemental code = 4786621) Report for [id number] [facility]2021-04-09 16:31:00 Test Item Value Reference Range Interpretation Comments POC Activated Clotting Time (test code 153 s = POC Activated Clotting Time) [facility] AntonioJuwcvdeSPPYNEZJVL1138-00-99 16:31:00 Test Item Value Reference Range Interpretation Comments POC Activated Clotting Time (test code 153 s = POC Activated Clotting Time) [facility] AntonioNbxbzgcJBJCVPIOSZ8185-44-51 16:31:00 Test Item Value Reference Range Interpretation Comments POC Activated Clotting Time (test code 153 s = POC Activated Clotting Time) [place]291-04-09 16:31:00 Test Item Value Reference Range Interpretation Comments POC Activated Clotting Time (test code 153 s = POC Activated Clotting Time) [place] 650291-04-09 16:31:00 Test Item Value Reference Range Interpretation Comments POC Activated Clotting Time (test code 153 s = POC Activated Clotting Time) [facility] AntonioDbseulzKDRNSXQRQE2032-43-24 16:31:00 Test Item Value Reference Range Interpretation Comments POC Activated Clotting Time (test code 153 s = POC Activated Clotting Time) [facility] AntonioXkyhhftNSFYQSBHHJ0591-08-54 16:31:00 Test Item Value Reference Range Interpretation Comments POC Activated Clotting Time (test code 153 s = POC Activated Clotting Time) [facility] AntonioMdvhnkiKROHETPBXZ6852-61-32 14:37:00 Test Item Value Reference Range Interpretation Comments POC Activated Clotting Time (test code 454 s = POC Activated Clotting Time) [facility] AntonioCrlrhzsYYNKDAMRZT7619-98-09 14:37:00 Test Item Value Reference Range Interpretation Comments POC Activated Clotting Time (test code 454 s = POC Activated Clotting Time) [facility] AntonioRhiidbkKXVSKXHJWV0580-58-21 14:37:00 Test Item Value Reference Range Interpretation Comments POC Activated Clotting Time (test code 454 s = POC Activated Clotting Time) [facility] AntonioAklmyuhMIRTFKOPTM7035-36-56 14:37:00 Test Item Value Reference Range Interpretation Comments POC Activated Clotting Time (test code 454 s = POC Activated Clotting Time) [facility] AntonioVazbpvkGEQRBRWEOB6187-49-62 14:37:00 Test Item Value Reference Range Interpretation Comments POC Activated Clotting Time (test code 454 s = POC Activated Clotting Time) [facility] AntonioFewlgwcVWPCHQNOKB8669-69-14 14:37:00 Test Item Value Reference Range Interpretation Comments POC Activated Clotting Time (test code 454 s = POC Activated Clotting Time) [facility] AntonioRlogufhGZBZZXLZQA4934-14-18 14:37:00 Test Item Value Reference Range Interpretation Comments POC Activated Clotting Time (test code 454 s = POC Activated Clotting Time) [facility] AntonioNkgpiaxCRZNANFIDM7740-27-75 14:13:00 Test Item Value Reference Range Interpretation Comments POC Activated Clotting Time (test code 354 s = POC Activated Clotting Time) [facility] AntonioYrtanhxQYUXHFWTFU2565-23-00 14:13:00 Test Item Value Reference Range Interpretation Comments POC Activated Clotting Time (test code 354 s = POC Activated Clotting Time) [facility] AntonioSemsdfhYDJYHWRAUW6501-03-76 14:13:00 Test Item Value Reference Range Interpretation Comments POC Activated Clotting Time (test code 354 s = POC Activated Clotting Time) [facility] AntonioWynrkbwKDSOHPJAKO7193-37-32 14:13:00 Test Item Value Reference Range Interpretation Comments POC Activated Clotting Time (test code 354 s = POC Activated Clotting Time) [facility] AntonioEvewiosBREPDXSNRX1929-65-44 14:13:00 Test Item Value Reference Range Interpretation Comments POC Activated Clotting Time (test code 354 s = POC Activated Clotting Time) [facility] AntonioEkndnvwXJKUZOVHLD4926-92-39 14:13:00 Test Item Value Reference Range Interpretation Comments POC Activated Clotting Time (test code 354 s = POC Activated Clotting Time) [facility] AntonioLxvjblaLMYBFFCGEW8251-63-27 14:13:00 Test Item Value Reference Range Interpretation Comments POC Activated Clotting Time (test code 354 s = POC Activated Clotting Time) [facility] HWRANZG3279-97-72 10:37:00Negative (08/29/20 5:37 AM) [facility] HermannCHEM UNNFC0473-99-33 10:37:44172Eixxgfuz HermannCHEM PANEL 2020-08-29 10:37:0028[facility] HermannCHEM RGFIS1544-14-31 10:37:001.01[facility] HermannCHEM HLRIC3718-54-37 10:37:75864Aspegvlv HermannCHEM WWGHP4457-66-80 10:37:003.8[facility] HermannCHEM PWHFQ4551-15-89 10:37:93426Fucvpata HermannCHEM PBFMY8454-12-07 10:37:0028[facility] HermannCHEM OHWPE9404-99-97 10:37:009.8 [facility] HermannCHEM KHEAT7781-30-90 10:37:0011.8[facility] HermannCHEM PANEL 2020-08-29 10:37:0059[facility] HermannCHEM CMAUD0834-51-30 10:37:002.9[facility] KkqifacHHWCEBLLVR4484-54-75 10:37:006.8[facility] WumxujqPOEALIOPEA1185-81-08 10:37:004.47[facility] YooxjjzYRGDZVWIMX6036-87-77 10:37:0010.6[facility] JMYUOBYLTD1452-44-05 10:37:0034.0[facility] VffzikuQFRUEZLGMK2730-66-61 10:37:00 76.1[facility] ThxagaqATHOKFOSPQ5303-90-17 10:37:00 Test Item Value Reference Range Interpretation Comments MCH (test code = MCH) 23.8 pg 27.0-31.0 [facility] ZdpmdbnQGSWYYEXIJ2320-71-23 10:37:0031.3[facility] HermannHEMATOLOGY 2020-08-29 10:37:0018.2[facility] TiobxxeAGCVMRDVIZ4330-80-18 10:37:40488Fkjbpegx VulkzjuCPOJCAOVKG2110-98-87 10:37:007.5[facility] RkyvojeLSMUVEGPIC4575-22-99 10:37:00 Test Item Value Reference Range Interpretation Comments PT (test code = PT) 12.8 s 12.0-14.7 [facility] RnyasuiSKAGUNYWRC6322-64-94 10:37:00 Test Item Value Reference Range Interpretation Comments INR (test code = INR) 0.97 1 0.85-1.17 [facility] QbppgxoRNITVDKDWE6085-82-37 10:37:00 Test Item Value Reference Range Interpretation Comments PTT (test code = PTT) 25.0 s 22.9-35.8 [facility] DollxmhRRXTSONZBD4566-89-23 10:37:0070.5[facility] HermannHEMATOLOGY 2020-08-29 10:37:0018.8[facility] AdptguwYNZCHNXKCG1429-17-38 10:37:009.5[facility] BbopbxnLNXWCEIGZA3025-04-25 10:37:000.9[facility] NrrgdvqZYGDKQRXSA5187-58-82 10:37:000.3[facility] WiscyqwWSOCSERHHF3376-86-22 10:37:004.8[facility] GXRCRWHVNN6916-32-22 10:37:001.3[facility] HxsbjbxTSLIJNCNUX0575-80-96 10:37:000.6 [facility] XjetiozSNURUZORVG3005-25-12 10:37:000.1[facility] HermannHEMATOLOGY 2020-08-29 10:37:001+ *ABN*(08/29/20 5:37 AM)[facility] LqmurcjPGOTMVHKME2326-66-46 10:37:00Not Detected (08/29/20 5:37 AM)[facility] HermannBLOOD BANK RESULTS 2020-08-29 10:37:00Negative (08/29/20 5:37 AM)[facility] HermannCHEM PFAME9106-96-42 10:37:58423Fxrttbdo HermannCHEM WACXF4967-72-57 10:37:0028[facility] HermannCHEM ZFBDK0393-79-17 10:37:001.01[facility] HermannCHEM SAJNK5393-34-04 10:37:81741 [facility] HermannCHEM FFUKB5574-06-81 10:37:003.8[facility] HermannCHEM PANEL 2020-08-29 10:37:41694[place]jsu[place]oa HermannCHEM FECAW7532-14-17 10:37:0028[facility] HermannCHEM YARWU2644-02-27 10:37:009.8[facility] HermannCHEM PCLVG4270-27-34 10:37:0011.8[facility] HermannCHEM XWTPV9055-72-36 10:37:0059[facility] HermannCHEM WVOBC5145-53-40 10:37:002.9[facility] ThkwzgaIWKOUGRHYH6685-52-52 10:37:006.8 [facility] JokcgfnAEZOPBLBLM2217-07-17 10:37:004.47[facility] HermannHEMATOLOGY 2020-08-29 10:37:0010.6[facility] EbizwiuMFXMPMRZWV8695-67-48 10:37:0034.0[facility] SxiencnOBIQGCRVEI3208-87-11 10:37:0076.1[facility] IxpehuxNUVGWQBUUK0188-64-22 10:37:00 Test Item Value Reference Range Interpretation Comments MCH (test code = MCH) 23.8 pg 27.0-31.0 [facility] HnmdrlvIYFVVTSCYE3891-30-85 10:37:0031.3[facility] HermannHEMATOLOGY 2020-08-29 10:37:0018.2[facility] XjsqhpsZAROEBLGTZ3889-57-13 10:37:57080Lkhsyqgl IlbtyzoULBBBCODJA2124-92-83 10:37:007.5[facility] AtwhixlTFSLYOIPUJ5493-20-19 10:37:00 Test Item Value Reference Range Interpretation Comments PT (test code = PT) 12.8 s 12.0-14.7 [facility] QrybignWGSMWYACHM5163-27-96 10:37:00 Test Item Value Reference Range Interpretation Comments INR (test code = INR) 0.97 1 0.85-1.17 [facility] YdqosmcTVJNJRTYUJ1585-99-12 10:37:00 Test Item Value Reference Range Interpretation Comments PTT (test code = PTT) 25.0 s 22.9-35.8 [facility] QyircdbWCJMZXUZTV9946-17-37 10:37:0070.5[facility] HermannHEMATOLOGY 2020-08-29 10:37:0018.8[facility] WpirvzdKOUDZHEONU3237-16-81 10:37:009.5[facility] GyjzuicQEGPUPFETK8734-79-80 10:37:000.9[facility] KgunoxwCVLOCAWIFA6329-45-24 10:37:000.3[facility] LipozutTEYYQTCIFW8620-55-06 10:37:004.8[facility] Marty IOLFTPQISL8340-18-11 10:37:001.3[facility] UqikdgfGPSKLUYUGZ5032-57-35 10:37:000.6 [facility] YanndamXDGDQDBYSU7225-01-11 10:37:000.1[facility] HermannHEMATOLOGY 2020-08-29 10:37:001+ *ABN*(08/29/20 5:37 AM)[facility] CuwplheSZYTDRNCIZ0034-98-09 10:37:00Not Detected (08/29/20 5:37 AM)[facility] HermannBLOOD BANK RESULTS 2020-08-29 10:37:00Negative (08/29/20 5:37 AM)[facility] HermannCHEM AVGAP7056-36-96 10:37:83013Pdnrzgvc HermannCHEM UNYNO0339-87-29 10:37:0028[facility] HermannCHEM QVINH8167-12-24 10:37:001.01[facility] HermannCHEM MQBRT2141-79-73 10:37:65705 [facility] HermannCHEM IZSED8793-85-84 10:37:003.8[facility] HermannCHEM PANEL 2020-08-29 10:37:41273Lbwjadcm HermannCHEM APBEG6465-42-54 10:37:0028[facility] HermannCHEM YMQKT3932-65-83 10:37:009.8[facility] HermannCHEM SSEBV9973-26-04 10:37:0011.8[facility] HermannCHEM MXHFZ3531-67-92 10:37:0059[facility] HermannCHEM JUOKG1774-96-56 10:37:002.9[facility] DvnoelfZEYCLWPNJI8384-47-30 10:37:006.8 [facility] WmjdwhnSZFAWYMZSM0762-39-95 10:37:004.47[facility] HermannHEMATOLOGY 2020-08-29 10:37:0010.6[facility] ZcdooksWHCRPLFVXF9847-67-98 10:37:0034.0[facility] DwssmwuZSNINEOPIX1544-92-61 10:37:0076.1[facility] ZhiawdmCRYFPPXVCW4533-43-42 10:37:00 Test Item Value Reference Range Interpretation Comments MCH (test code = MCH) 23.8 pg 27.0-31.0 [facility] GdrdbbnTZLMYWKLKD7645-60-37 10:37:0031.3[facility] HermannHEMATOLOGY 2020-08-29 10:37:0018.2[facility] HkyplndYOLRMMSLWZ2527-18-43 10:37:84562Aigavsml DrplchuNLKNSSGBCY7088-34-24 10:37:007.5[facility] DyjvfycDBAIPCLMPI1004-39-80 10:37:00 Test Item Value Reference Range Interpretation Comments PT (test code = PT) 12.8 s 12.0-14.7 [facility] TorenbaUVPLZFLIOE3893-02-20 10:37:00 Test Item Value Reference Range Interpretation Comments INR (test code = INR) 0.97 1 0.85-1.17 [facility] BndwyzxMENXQVQNUP8946-58-18 10:37:00 Test Item Value Reference Range Interpretation Comments PTT (test code = PTT) 25.0 s 22.9-35.8 [facility] OmbkayeTSQSAJNMTE5938-46-04 10:37:0070.5[facility] HermannHEMATOLOGY 2020-08-29 10:37:0018.8[facility] AgxqxmfBDDTDWKCEL0734-38-80 10:37:009.5[facility] KsugjhaUTQAWPYVNO5959-75-27 10:37:000.9[facility] KuawtoyAQNVUUTQDB6476-15-69 10:37:000.3[facility] BnfmorxZPCZPMKOUG8594-70-01 10:37:004.8[facility] PVHVFTHACN1559-84-50 10:37:001.3[facility] ClhhimaWOSXOGVVYN2690-68-25 10:37:000.6 [facility] LwzfbjlFUFFWNGDDU6879-23-11 10:37:000.1[facility] HermannHEMATOLOGY 2020-08-29 10:37:001+ *ABN*(08/29/20 5:37 AM)[facility] BitndqmOIYKREXZLR6737-78-64 10:37:00Not Detected (08/29/20 5:37 AM)[facility] HermannBLOOD BANK RESULTS 2020-08-29 10:37:00Negative (08/29/20 5:37 AM)[facility] HermannCHEM RHQNI1834-63-97 10:37:54141Ovmberkc HermannCHEM DRQPJ0084-67-66 10:37:0028[facility] HermannCHEM XFZYJ7742-65-57 10:37:001.01[facility] HermannCHEM HJFNM9563-29-94 10:37:08644 [facility] HermannCHEM TSXVL6489-47-13 10:37:003.8[facility] HermannCHEM PANEL 2020-08-29 10:37:24637Fooesexd HermannCHEM KONUH1710-62-42 10:37:0028[facility] HermannCHEM DZGSP1726-09-55 10:37:009.8[facility] HermannCHEM TGSLJ2138-50-75 10:37:0011.8[facility] HermannCHEM BTVEC0721-41-67 10:37:0059[facility] HermannCHEM VSLBU6711-08-24 10:37:002.9[facility] EhidxyxUHQEQXGGBJ4743-00-29 10:37:006.8 [facility] UrhycpkHBTPQTOLKX6549-44-73 10:37:004.47[facility] HermannHEMATOLOGY 2020-08-29 10:37:0010.6[facility] CopwhorDNINEYNTQG2692-33-86 10:37:0034.0[facility] WoljbkhRUKCUCVLDU2251-14-91 10:37:0076.1[facility] QzdqbfsHQUSEGLXNR3915-04-58 10:37:00 Test Item Value Reference Range Interpretation Comments MCH (test code = MCH) 23.8 pg 27.0-31.0 [facility] QgmzbxzNTOLKLDVMH9069-92-95 10:37:0031.3[facility] HermannHEMATOLOGY 2020-08-29 10:37:0018.2[facility] ZrvcxzgVBJOCPXMJC8069-27-49 10:37:68872Gemkxolf LfxlzxdMFEGYDANDS0705-01-30 10:37:007.5[facility] RnitrtfEICOCRCYAN6533-89-86 10:37:00 Test Item Value Reference Range Interpretation Comments PT (test code = PT) 12.8 s 12.0-14.7 [facility] MixsgwiLQCIUNVBXX3236-47-89 10:37:00 Test Item Value Reference Range Interpretation Comments INR (test code = INR) 0.97 1 0.85-1.17 [facility] BqipaauNBBRDLHONL9106-00-06 10:37:00 Test Item Value Reference Range Interpretation Comments PTT (test code = PTT) 25.0 s 22.9-35.8 [facility] AdxfbycYQZGKDHRVQ1211-30-25 10:37:0070.5[facility] HermannHEMATOLOGY 2020-08-29 10:37:0018.8[facility] AdaokglMKENYMPGJJ7351-83-81 10:37:009.5[facility] TqgfnhnJKJSARUNZY3943-66-59 10:37:000.9[facility] XglzrptQRHPFRRIVK1281-90-90 10:37:000.3[facility] JgpirtrUTUXVXFQOZ4413-15-23 10:37:004.8[facility] DIIRZYBNBW3289-09-24 10:37:001.3[facility] IwzbyayQGLJPWVCVY2838-94-80 10:37:000.6 [facility] PlwurdlLHWBAFRKOW4156-10-17 10:37:000.1[facility] HermannHEMATOLOGY 2020-08-29 10:37:001+ *ABN*(08/29/20 5:37 AM)[facility] IckbevlZOROFHSUPL0012-43-17 10:37:00Not Detected (08/29/20 5:37 AM)[facility] HermannBLOOD BANK RESULTS 2020-08-29 10:37:00Negative (08/29/20 5:37 AM)[facility] HermannCHEM FFHMM7665-87-91 10:37:53876Pjeymqvm HermannCHEM BZFQG3685-62-43 10:37:0028[facility] HermannCHEM QELRV0799-17-08 10:37:001.01[facility] HermannCHEM LKXYQ5554-88-00 10:37:43046 [facility] HermannCHEM SMWKD2549-62-53 10:37:003.8[facility] HermannCHEM PANEL 2020-08-29 10:37:14018Fgtxipgc HermannCHEM QJBHC3580-29-93 10:37:0028[facility] HermannCHEM RLEGJ9529-31-01 10:37:009.8[facility] HermannCHEM WVGHA6029-02-65 10:37:0011.8[facility] HermannCHEM PDUPZ9371-72-54 10:37:0059[facility] HermannCHEM AJTCJ9413-66-86 10:37:002.9[facility] ZlanecvPODGSNVRTD2838-86-10 10:37:006.8 [facility] RqebgbnJIPMZKVKFT9447-80-07 10:37:004.47[facility] HermannHEMATOLOGY 2020-08-29 10:37:0010.6[facility] IpnlywjXFDCLYTDER8141-36-21 10:37:0034.0[facility] BxxcocwAWCTLPLGKF2702-80-64 10:37:0076.1[facility] GbkgvmpHTNTJFGBHP7753-93-88 10:37:00 Test Item Value Reference Range Interpretation Comments MCH (test code = MCH) 23.8 pg 27.0-31.0 [facility] HvtwvenSFXQNSIIHG3034-64-82 10:37:0031.3[facility] HermannHEMATOLOGY 2020-08-29 10:37:0018.2[facility] BeslnfqNZDESATYUZ8839-79-44 10:37:50808Vnztgqdd EcenrpiYASVGPXCPE1528-33-80 10:37:007.5[facility] VhrpfuqXCSAKDOGSI0381-75-49 10:37:00 Test Item Value Reference Range Interpretation Comments PT (test code = PT) 12.8 s 12.0-14.7 [facility] GkvlalrWLBWFZLFIH8385-57-20 10:37:00 Test Item Value Reference Range Interpretation Comments INR (test code = INR) 0.97 1 0.85-1.17 [facility] KjjztylTBQLMMJQHZ0452-07-37 10:37:00 Test Item Value Reference Range Interpretation Comments PTT (test code = PTT) 25.0 s 22.9-35.8 [facility] TjdaswlNLWXVSEKTX8291-22-39 10:37:0070.5[facility] HermannHEMATOLOGY 2020-08-29 10:37:0018.8[facility] BhbtahxAFCSWLPEPE1069-59-64 10:37:009.5[facility] TupmpglLARCJNQBDP9249-39-29 10:37:000.9[facility] MaxjmegNTPJOOWLBM4260-72-47 10:37:000.3[facility] QhexdooMAZXVPTKNT2208-11-64 10:37:004.8[facility] TDFQEDMOIF6113-03-02 10:37:001.3[facility] DcidutlOYAJMUQABD3747-81-03 10:37:000.6 [facility] VkcdrxjVTBVHAXVUB6291-08-91 10:37:000.1[facility] HermannHEMATOLOGY 2020-08-29 10:37:001+ *ABN*(08/29/20 5:37 AM)[facility] NnpepcwXANHTSAMXQ2163-98-99 10:37:00Not Detected (08/29/20 5:37 AM)[facility] HermannBLOOD BANK RESULTS 2020-08-29 10:37:00Negative (08/29/20 5:37 AM)[facility] HermannCHEM MEVBQ0099-72-47 10:37:31891Habzbwau HermannCHEM BGFEC8175-07-39 10:37:0028[facility] HermannCHEM FIAUE7378-10-98 10:37:001.01[facility] HermannCHEM XSMNL0168-33-33 10:37:51562 [facility] HermannCHEM QUIKX2419-53-24 10:37:003.8[facility] HermannCHEM PANEL 2020-08-29 10:37:77520Hvfseuoi HermannCHEM VNHUX0201-73-79 10:37:0028[facility] HermannCHEM LAJFL7340-50-66 10:37:009.8[facility] HermannCHEM KJUXU0342-27-48 10:37:0011.8[facility] HermannCHEM YOXHX8763-02-14 10:37:0059[facility] HermannCHEM QXZBQ2138-70-74 10:37:002.9[facility] PrpbazfYQUAXXWPYD1658-30-07 10:37:006.8 [facility] HhwtksrKVXFVYCDON8291-83-01 10:37:004.47[facility] HermannHEMATOLOGY 2020-08-29 10:37:0010.6[facility] BpijqwyNWECZMXCDD1629-34-55 10:37:0034.0[facility] WtqtlacRFEWYGFVTM0618-41-59 10:37:0076.1[facility] GmyazziMEMOIGHIJB4143-34-80 10:37:00 Test Item Value Reference Range Interpretation Comments MCH (test code = MCH) 23.8 pg 27.0-31.0 [facility] SdkqprcNEVZCGEPOG3672-60-90 10:37:0031.3[facility] HermannHEMATOLOGY 2020-08-29 10:37:0018.2[facility] ThnomryCYOJVTCOTP1646-38-68 10:37:89321Depssybe TwqlcohHWGKDKWJKW8495-54-24 10:37:007.5[facility] ZnhazamHBCNKYFNWP3008-91-98 10:37:00 Test Item Value Reference Range Interpretation Comments PT (test code = PT) 12.8 s 12.0-14.7 [facility] PrbuwbrAZIEMHZAPQ1198-12-12 10:37:00 Test Item Value Reference Range Interpretation Comments INR (test code = INR) 0.97 1 0.85-1.17 [facility] PrnuoabKBEDXHNZRI8364-23-03 10:37:00 Test Item Value Reference Range Interpretation Comments PTT (test code = PTT) 25.0 s 22.9-35.8 [facility] ZrijszyEUTCQLSTBA8472-16-88 10:37:0070.5[facility] HermannHEMATOLOGY 2020-08-29 10:37:0018.8[facility] VqlikggESDDNKIQYQ7757-70-47 10:37:009.5[facility] HgjoclxAFPEYPLNGU2312-80-01 10:37:000.9[facility] WqkphxyQUYUDNYKGP8556-57-13 10:37:000.3[facility] FrdhyevXGFRKNLSLG7488-98-74 10:37:004.8[facility] KGYTYQKXHN2399-64-95 10:37:001.3[facility] NrrhygtGGBZSCCSMG8311-73-08 10:37:000.6 [facility] PbllidwWSEUGSLGUM8919-30-27 10:37:000.1[facility] HermannHEMATOLOGY 2020-08-29 10:37:001+ *ABN*(08/29/20 5:37 AM)[facility] BesraoyGHXBHKSFTV4045-85-68 10:37:00Not Detected (08/29/20 5:37 AM)[facility] HermannBLOOD BANK RESULTS 2020-08-29 10:37:00Negative (08/29/20 5:37 AM)[facility] HermannCHEM DXQHT7436-33-64 10:37:60272Nexxbhtl HermannCHEM UYQNJ6253-80-22 10:37:0028[facility]annCHEM BTZKP0645-09-48 10:37:001.01[facility]annCHE[facility] RIQFI3644-70-75 10:37:36929 [facility] AWXXF8425-42-93 10:37:003.8[facility]annCHEM PANEL 2020-08-29 10:37:27289Emgteaub HermannCHEM FLBHG7920-33-61 10:37:0028[facility]annCHEM LFDGS6968-31-56 10:37:009.8[facility]annCHEM JEAKE9539-21-53 10:37:0011.8[facility]annCHEM UBJLS2274-21-71 10:37:0059[facility]annCHEM QCWUP0879-65-57 10:37:002.9[facility] KtwuzhcHBXEDNQZED4910-19-74 10:37:006.8 [facility] LfpqbhfUGXWXJGXPX2742-13-90 10:37:004.47[facility]annHEMATOLOGY 2020-08-29 10:37:0010.6[facility] YatfpdrRWYHIKPONW3057-24-98 10:37:0034.0[facility] MlqaaagXOPSYKULNM5292-57-34 10:37:0076.1[facility] CopkitvBVYHBDHWBI7796-90-38 10:37:00 Test Item Value Reference Range Interpretation Comments MCH (test code = MCH) 23.8 pg 27.0-31.0 [facility] CyqdgtzLGINLKOWUI3147-11-41 10:37:0031.3[facility]annHEMATOLOGY 2020-08-29 10:37:0018.2[facility] HsludeuTVKMKKPNVW4931-46-59 10:37:40739Fybimpan ZhmvcikQNAXXWZDMS5712-67-60 10:37:007.5[facility] HdpxmuzEQSZCEVTCL3572-77-96 10:37:00 Test Item Value Reference Range Interpretation Comments PT (test code = PT) 12.8 s 12.0-14.7 [facility] QjteipiPMKUGXJEQP9265-51-59 10:37:00 Test Item Value Reference Range Interpretation Comments INR (test code = INR) 0.97 1 0.85-1.17 [facility] YsnblioJBSKIFMSSO0724-10-31 10:37:00 Test Item Value Reference Range Interpretation Comments PTT (test code = PTT) 25.0 s 22.9-35.8 [facility] AnzqyraYCJJDLQXCW0387-87-94 10:37:0070.5[facility]annHEMATOLOGY 2020-08-29 10:37:0018.8[facility] JdnxdgrDBYGWRYOUR2895-29-93 10:37:009.5[facility] UgitsvaTUSNTBPBYI2735-57-11 10:37:000.9[facility] EthuexiUSDOZGSJZH2148-11-75 10:37:000.3[facility] DkzbgvnSQBKQKABHQ3153-27-96 10:37:004.8[facility] NZFCPXTAVB1788-49-70 10:37:001.3[facility] UtpoyelXCUYVVALZN1876-99-56 10:37:000.6 [facility] VnvowthNPCDTTNEGJ4064-30-57 10:37:000.1[facility] HermannHEMATOLOGY 2020-08-29 10:37:001+ *ABN*(08/29/20 5:37 AM)[facility] ApbfdjcDDDYXRXQUC4420-42-45 10:37:00Not Detected (08/29/20 5:37 AM)[facility] McallenarielCHLAMYDIA, GC, TV,PCR, IN TCXCV6406-72-91 15:38:00 Test Item Value Reference Range Interpretation Comments FT (test code = CHTR) Not detected (qualifier Not Detected N value) FT (test code = Not detected (qualifier Not Detected N NGONO) value) FT (test code = TRVG) Not detected (qualifier Not Detected N value) [facility] WITH MUZFIJBQWJY5385-70-44 10:57:00 Test Item Value Reference Range Interpretation Comments Color (test code = UCOLR) Dk. Yellow Clarity (test code = UCLAR) Hazy Glucose (test code = UGLUC) NEGATIVE NEGATIVE N Bilirubin (test code = UBILI) NEGATIVE NEGATIVE N Ketones (test code = UKET) NEGATIVE NEGATIVE N Specific [place] (test code = 1.025 1.005-1.030 A [...]
--- NOTE | 2022-07-06 02:33 | ER ---
Nurse's Notes [facility] Name: Marjan Kolb Age: 67 yrs Sex: Female : 1955 Arrival Date: 07/06/2022 Time: 01:23 Bed 16 Private MD: Diagnosis: Unspecified symptoms and signs involving the musculoskeletal system;Bipolar disorder, unspecified Presentation: 07/06 01:24 Chief complaint: Patient states: low back pain seen here x 3 visits no improvement. Coronavirus screen: Vaccine status: Patient reports receiving the 2nd dose of the covid vaccine. Ebola Screen: Patient negative for fever greater than or equal to 101.5 degrees Fahrenheit, and additional compatible Ebola Virus Disease symptoms. Initial Sepsis Screen: Does the patient meet any 2 criteria? No. Patient's initial sepsis screen is negative. Does the patient have a suspected source of infection? No. Patient's initial sepsis screen is negative. Risk Assessment: Do you want to hurt yourself or someone else? Patient reports no desire to harm self or others. 01:24 Method Of Arrival: EMS: [facility] 01:24 Acuity: BLYANE 5 kl Triage Assessment: 01:26 General: Appears in no apparent distress. Behavior is calm, cooperative. Pain: Complains of pain in lumbar area Pain currently is 9 out of 10 on a pain scale. Historical: - Allergies: 01:25 Azithromycin; kl 01:25 Bactrim; kl 01:25 butorphanol; kl 01:25 Fentanyl; kl 01:25 Reglan; kl 01:25 Sulfa (Sulfonamide Antibiotics); kl 01:25 TRIMETHOPRIM; kl - PMHx: 01:25 Anxiety; Atrial fibrillation; Bipolar disorder; esophageal varicies; Hepatitis; HIV kl positive; Hypertensive disorder; panic attack; Migraine; - Immunization history:: Adult Immunizations up to date. - Social history:: Smoking status: Patient/guardian denies using tobacco, the patient reports quitting approximately 3 years ago. - Family history:: not pertinent. Screenin:44 [facility] ED Fall Risk Assessment (Adult) History of falling in the last 3 months, jb4 including since admission No falls in past 3 months (0 pts) Confusion or Disorientation No (0 pts) Score/Fall Risk Level 0 - 2 = Low Risk Oriented to surroundings, Maintained a safe environment. Abuse screen: Denies threats or abuse. Nutritional screening: No deficits noted. Tuberculosis screening: No symptoms or risk factors identified. Assessment: 02:00 General: Appears in no apparent distress. comfortable, Behavior is calm, cooperative, jb4 appropriate for age. Pain: Complains of pain in low back area Pain does not radiate. Pain currently is 9 out of 10 on a pain scale. Neuro: Level of Consciousness is awake, alert, obeys commands, Oriented to person, place, time, situation. Cardiovascular: Patient's skin is warm and dry. Respiratory: Airway is patent Respiratory effort is even, unlabored, Respiratory pattern is regular, symmetrical. GI: No signs and/or symptoms were reported involving the gastrointestinal system. : No signs and/or symptoms were reported regarding the genitourinary system. EENT: No signs and/or symptoms were reported regarding the EENT system. Derm: Skin is intact, Skin is pink, warm \T\ dry. Musculoskeletal: Circulation, motion, and sensation intact. Range of motion: intact in all extremities. 02:45 Reassessment: D/c pending ride home pt informed that she could not be medicated and jb4 discharged until her ride was present. Vital Signs: 01:24 BP 188 / 101; Pulse 72; Resp 18; Temp 98(TE); Pulse Ox 98% on R/A; Weight 76.2 kg (R); kl Height 5 ft. 4 in. (162.56 cm); Pain 9/10; 01:24 Body Mass Index 28.84 (76.20 kg, 162.56 cm) ED Course: 01:23 Patient arrived in ED. 3 01:25 Triage completed. 01:27 Justus Kolb MD is Attending Physician. [facility] 03:44 Patient has correct armband on for positive identification. Bed in low position. Call jb4 light in reach. Side rails up X 1. 03:44 No provider procedures requiring assistance completed. Patient did not have IV access jb4 during this emergency room visit. Administered Medications: 03:43 Drug: Demerol (meperidine) 50 mg Route: IM; Site: left gluteus; jb4 03:44 Follow up: Response: Medication administered at discharge. [facility] 03:43 Drug: Phenergan (promethazine) 25 mg Route: IM; Site: right gluteus; jb4 03:44 Follow up: Response: Medication administered at discharge. jb4 03:43 Drug: Valium (diazepam) 10 mg Route: PO; jb4 03:44 Follow up: Response: Medication administered at discharge. jb4 Outcome: 02:32 Discharge ordered by . thomas 03:44 Discharged to home ambulatory. jb4 03:44 Condition: stable 03:44 Discharge instructions given to patient, Instructed on discharge instructions, follow up and referral plans. medication usage, Demonstrated understanding of instructions, follow-up care, medications, Prescriptions given X 1. 03:45 Patient left the ED. jb4 Signatures: Paige De Jesus, RN Justus Tian MD MD cha Bryson, James, RN RN jb4 Ev Fields ag3 Corrections: (The following items were deleted from the chart) 03:33 03:32 Reassessment: D/c pending ride home pt informed that she could not be medicated jb4 and discharged until her ride was present. jb4
--- NOTE | 2022-07-06 02:33 | EDPHYS ---
Physician Documentation [facility] Name: Marjan Kolb Age: 67 yrs Sex: Female : 1955 Arrival Date: 07/06/2022 Time: 01:23 Bed 16 Private MD: Justus Cervantes HPI: 07/06 02:26 This 67 yrs old Female presents to ER via EMS with complaints of Back Pain. thomas 02:26 The patient presents with pain that is acute, with no known mechanism of injury. The thomas symptoms are located in the low back. Onset: The symptoms/episode began/occurred 3 day(s) ago. The pain does not radiate. Associated signs and symptoms: The patient has no apparent associated signs or symptoms. The problem was sustained from unknown cause. Modifying factors: The patient symptoms are alleviated by nothing, the patient symptoms are aggravated by any movement. Severity of symptoms: At their worst the symptoms were mild, in the emergency department the symptoms are unchanged. The patient has experienced similar episodes in the past, a few times. Historical: - Allergies: 01:25 Azithromycin; kl 01:25 Bactrim; kl 01:25 butorphanol; kl 01:25 Fentanyl; kl 01:25 Reglan; kl 01:25 Sulfa (Sulfonamide Antibiotics); kl 01:25 TRIMETHOPRIM; kl - PMHx: 01:25 Anxiety; Atrial fibrillation; Bipolar disorder; esophageal varicies; Hepatitis; HIV kl positive; Hypertensive disorder; panic attack; Migraine; - Immunization history:: Adult Immunizations up to date. - Social history:: Smoking status: Patient/guardian denies using tobacco, the patient reports quitting approximately 3 years ago. - Family history:: not pertinent. ROS: 02:26 Constitutional: Negative for fever, chills, and weight loss, Eyes: Negative for injury, thomas pain, redness, and discharge, ENT: Negative for injury, pain, and discharge, Neck: Negative for injury, pain, and swelling, Cardiovascular: Negative for chest pain, palpitations, and edema, Respiratory: Negative for shortness of breath, cough, wheezing, and pleuritic chest pain, Abdomen/GI: Negative for abdominal pain, nausea, vomiting, diarrhea, and constipation, : Negative for injury, bleeding, discharge, and swelling, MS/Extremity: Negative for injury and deformity, Skin: Negative for injury, rash, and discoloration, Neuro: Negative for headache, weakness, numbness, tingling, and seizure, Psych: Negative for depression, anxiety, suicide ideation, homicidal ideation, and hallucinations, Allergy/Immunology: Negative for hives, rash, and allergies, Endocrine: Negative for neck swelling, polydipsia, polyuria, polyphagia, and marked weight changes, Hematologic/Lymphatic: Negative for swollen nodes, abnormal bleeding, and unusual bruising. 02:26 Back: Positive for decreased range of motion, pain at rest, of the left low back and left mid back. Exam: 02:26 Constitutional: This is a well developed, well nourished patient who is awake, alert, thomas and in no acute distress. Head/Face: Normocephalic, atraumatic. Eyes: Pupils equal round and reactive to light, extra-ocular motions intact. Lids and lashes normal. Conjunctiva and sclera are non-icteric and not injected. Cornea within normal limits. Periorbital areas with no swelling, redness, or edema. ENT: Nares patent. No nasal discharge, no septal abnormalities noted. Tympanic membranes are normal and external auditory canals are clear. Oropharynx with no redness, swelling, or masses, exudates, or evidence of obstruction, uvula midline. Mucous membranes moist. Neck: Trachea midline, no thyromegaly or masses palpated, and no cervical lymphadenopathy. Supple, full range of motion without nuchal rigidity, or vertebral point tenderness. No Meningismus. Chest/axilla: Normal chest wall appearance and motion. Nontender with no deformity. No lesions are appreciated. Cardiovascular: Regular rate and rhythm with a normal S1 and S2. No gallops, murmurs, or rubs. Normal PMI, no JVD. No pulse deficits. Respiratory: Lungs have equal breath sounds bilaterally, clear to auscultation and percussion. No rales, rhonchi or wheezes noted. No increased work of breathing, no retractions or nasal flaring. Abdomen/GI: Soft, non-tender, with normal bowel sounds. No distension or tympany. No guarding or rebound. No evidence of tenderness throughout. Female : Normal external genitalia. Skin: Warm, dry with normal turgor. Normal color with no rashes, no lesions, and no evidence of cellulitis. MS/ Extremity: Pulses equal, no cyanosis. Neurovascular intact. Full, normal range of motion. Neuro: Awake and alert, GCS 15, oriented to person, place, time, and situation. Cranial nerves II-XII grossly intact. Motor strength 5/5 in all extremities. Sensory grossly intact. Cerebellar exam normal. Normal gait. Psych: Awake, alert, with orientation to person, place and time. Behavior, mood, and affect are within normal limits. 02:26 Back: pain, that is mild, of the lumbar area, left low back and left mid back. Vital Signs: 01:24 BP 188 / 101; Pulse 72; Resp 18; Temp 98(TE); Pulse Ox 98% on R/A; Weight 76.2 kg (R); kl Height 5 ft. 4 in. (162.56 cm); Pain 9/10; 01:24 Body Mass Index 28.84 (76.20 kg, 162.56 cm) kl MDM: 01:27 Patient medically screened. thomas 02:29 Differential diagnosis: Fracture Hydronephrosis Obesity Osteoporosis Renal Infarction thomas ruptured disc, Ureterolithiasis vertebral fracture. Data reviewed: vital signs, nurses notes, lab test result(s), radiologic studies, CT scan. Consideration of Admission/Observation Patient was admitted/placed on observation. Escalation of care including admission/observation considered. I considered the following discharge prescriptions or medication management in the emergency department Medications were administered in the Emergency Department. See MAR. Test considered but Not performed: Other Details no new symptoms, no dysuria, no fc, no n/v. Care significantly affected by the following chronic conditions: Hypertension, varices, a fib, bipolar. Administered Medications: 03:43 Drug: Demerol (meperidine) 50 mg Route: IM; Site: left gluteus; jb4 03:44 Follow up: Response: Medication administered at discharge. jb4 03:43 Drug: Phenergan (promethazine) 25 mg Route: IM; Site: right gluteus; jb4 03:44 Follow up: Response: Medication administered at discharge. jb4 03:43 Drug: Valium (diazepam) 10 mg Route: PO; jb4 03:44 Follow up: Response: Medication administered at discharge. jb4 Disposition Summary: 07/06/22 02:32 Discharge Ordered Location: Home thomas Problem: new thomas Symptoms: have improved thomas Condition: Stable thomas Diagnosis - Unspecified symptoms and signs involving the musculoskeletal system thomas - Bipolar disorder, unspecified thomas Followup: thomas - With: Private Physician - When: 2 - 3 days - Reason: Recheck today's complaints, Continuance of care, Re-evaluation by your physician Discharge Instructions: - Discharge Summary Sheet thomas - Musculoskeletal Pain thomas - Managing Bipolar Disorder thomas Forms: - Medication Reconciliation Form thomas - Thank You Letter thomas - Antibiotic Education thomas - Prescription Opioid Use thomas Prescriptions: - Valium 5 mg Oral Tablet - take 1 tablet by ORAL route every 8 hours As needed; 15 tablet; Refills: 0, thomas Product Selection Permitted Signatures: Paige De Jesus RN RN Justus Golden MD MD cha Bryson, James RN RN jb4
[2022-07-06] MEDS ORDERED: DIAZEPAM 5 MG TABLET ONE (03:11)
[2022-07-06] MEDS ORDERED: PROMETHAZINE INJ 25 MG/ML AMP ONE (03:11)
[2022-07-06] MEDS ORDERED: MEPERIDINE HCL 25 MG/ML SYR ONE (03:13)
[2022-07-06 03:51] VITALS: BP 188/101; TEMP 98; O2SAT 98
== END 2022-07-06 03:45 | disposition home or self-care (01) ==
LOC: ER 00:48
DX: R29.91 Unspecified symptoms and signs involving the musculoskeletal system (principal); F31.9 Bipolar disorder, unspecified; I10 Essential (primary) hypertension; Z21 Asymptomatic human immunodeficiency virus [HIV] infection status; Z88.1 Allergy status to other antibiotic agents; Z88.2 Allergy status to sulfonamides; Z88.5 Allergy status to narcotic agent; Z88.8 Allergy status to other drugs, medicaments and biological substances
CPT/HCPCS: J2550; J2175

== ENCOUNTER 2022-07-13 14:30 | Observation (INO) | payer OTHER ==
--- OUTSIDE RECORDS SUMMARY | 2022-07-13 14:51 | XMS REPORT | Continuity of Care Document ---
:1955 Author Organization [facility] t Address [address] [place] [address] Care Team Providers Name Role Phone Asked, No Pcp Primary Care Physician Unavailable ELAN LIRA Attending Clinician Unavailable BEVERLY LAYTON [...] Tomy Marie MD Attending Clinician Doctor Unassigned, [place] Attending Clinician Unavailable Bill COLES Attending Clinician Unavailable Bill Rose Attending Clinician CHARITY MCALLISTER Attending Clinician Unavailable Charity Mcallister MD Attending Clinician GADIEL KOEHLER Attending Clinician Unavailable Mike Lund Attending Clinician Unavailable NIKOLAI REEVES Attending Clinician Unavailable Eliseo Arce MD Attending Clinician Carol Ann IZQUIERDO, Sarai Lieberman Attending Clinician [phone] Ashly Pelletier MA Attending Clinician Unavailable Dagoberto Bass MD Attending Clinician [place] Evangelista Attending Clinician Lab, [facility] Pob I Attending Clinician Unavailable Monica Rodas MA Attending Clinician Unavailable Agustina Ortiz MA Attending Clinician Unavailable Rody Maguire RN Attending Clinician Unavailable Kirit Flood MD, V. Attending Clinician HEMATBEVERLY MAHONEY Attending Clinician Unavailable Caridad COMMERCIAL CARPENTER, Gloria Attending Clinician Xiao RAMIREZ, Michael Corbin Attending Clinician Unavailable Team, [facility] Attending Clinician UnavailDO PORSHA Newell Attending Clinician Unavailable Rodo JENKINS, Gadiel Attending Clinician Tyrone JENKINS, Eveline Sierra Attending Clinician Stanislav RAMIREZ, Eladio Inman Attending Clinician Unavailable Geraldine SALGUERO, Leyda Attending Clinician [phone] Selvin RAMIREZ, Stefanie Attending Clinician Unavailable [...] Effective Date Expiration Date S gabino [facility] COMMUNITY PLAN [id number] 2012 STAR PLUS OON 00:00:00 [facility] [id number] 2019 DUAL COMPLETE HMO 00:00:00 [facility] STAR [id number] 2019 PLUS 00:00:00 [facility] [id number] 2019 [facility] [place] STAR 00:00:00 [employer] MEDICARE ADV [id number] 2019 2019 00:00:00 00:00:00 Problems Condition Condition Condition Status Onset Resolution Last Treating Co mments Source Name Details Category Date Date Treatment Clinician Date Dyspnea, Dyspnea, Disease Active Unive rs unspecifie unspecifie 02-11 it y of d type d type 00:00: [place] 00 Medical Branch Gastropare Gastropare Disease Active Overview : Methodi sis sis -[address] 00:00: [facility] note l might be different from the original. Added automatic ally from request for surgery [id number] Dysphagia Dysphagia Disease Active Overview: Methodi 4-[address] 00:00: g [facility] 00 note l might be different from the original. Added automatic ally from request for surgery [id number] CCL / EPS CCL / EPS Diagnosis Active 2020-10-15 Get PVI PVI 330 17:07:00 l ABLATION ABLATION 00:00: Patel n W/ CARTO / W/ CARTO / 00 GA / T GA / T Active 08/19/2020 [facility] Food Food Disease Active 2019-05 Methodi [...] 00:00: Medical Branch Hypertensi Hypertensi Disease Active 2011-0 U nivers on on 11-18 ity of 00:00: [place] 00 Medical Branch Allergies, Adverse Reactions, Alerts Allergy Allergy Status Severity Reaction(s) Onset Inactive Treating Comm ents Source Name Type Date Date Clinician sulfamet DA Active SV N/V [facility] hoxazole 1- Clear 00:00: Garcia 00 [facility] trimetho DA Active SV [facility] prim - Clear 00:00: Garcia [facility] codeine DA Active SV N/V [facility] - Clear 00:00: Garcia [facility] Metoclop Propensi Active [facility] [...] Stop Date Source Natural father Diabetes [facility] Natural father Other - see comments [facility] Natural father Coronary Heart [facility] [place] Disease [facility] Natural [facility] father [facility] Natural mother [facility] Social History Social Habit Start Date Stop Date Quantity Comments Source History SDOH [facility]vism Alcohol Frequency Hospita l History SDOH [facility] Alcohol Std Drinks Hospit al History SDOH [facility] Alcohol Binge Hospital Exposure to 2022-04-30 2022-05-10 Yes University of SARS-CoV-2 (event) 00:00:00 10:25:00 [facility] [place] [facility] Tobacco Comment 2022-02-11 2022-02-11 Smokes approx 1-2 Un iversity of 00:00:00 00:00:00 cigarettes per [place] [facility] day when she Branch smokes Alcohol intake 2020-12-08 2020-12-08 Current drinker [facility] 00:00:00 00:00:00 of [facility] (finding) Tobacco use and 2020-10-31 2020-10-31 Smokeless tobacco [facility] exposure 00:00:00 00:00:00 non-user Cigarettes smoked 2020-09-05 2020-09-[address] current (pack per 00:00:00 00:00:00 Hospita l day) - Reported Cigarette 2020-09-05 2020-09-05 [facility] pack-years 00:00:00 00:00:00 Hospital Alcohol Comment 2016-09-23 2016-09-23 rare [facility] 00:00:00 00:00:00 Hospital History of tobacco 2011-09-29 User of smokeless University of use 00:00:00 tobacco [facility] [place] [facility] Sex [birth year] [facility] 00:00:00 00:00:00 Smoking Status Start Date Stop Date Source Ex-smoker 2020-10-31 00:00:00 2020-10-31 [facility]:00:00 [facility] Ordered Filled Start Stop Current Ordering Indication Dosage Frequency Signature Comments Components Source Medication Medication Date Date Medication? Clinician (SIG) Name Name potassium 2021-05- 10meq 10 mEq, IV Univers chloride in 07-11 Piggyback, i ty of water 10 20:00: 22:00 ONCE, 1 [place] mEq/100 mL 00 :00 dose, On Medic al RTU 10 mEq Mon Branch 05/10/22 at 1400, Administer over 60 Minutes, 100 mL magnesium 2021-05 No 800mg 800 mg, Uni vers oxide 07-11 Oral, ity of (MAG-OX 20:00: 19:37 ONCE, 1 [place] 400) tablet 00 :00 dose, On Medi porfirio 800 mg [facility] 05/10/22 at 1400, Routine KCL 2021-05 No 40meq 40 mEq, Univers (KLOR-CON 07-11 Oral, ity of M20) tablet 19:15: 19:37 ONCE, 1 [place] 40 mEq 00 :00 dose, On Medical [facility] 05/10/22 at 1315, JOE hydralAZINE 2021-05 No 10mg 10 mg, Uni vers (APRESOLINE 07-11 Slow IV ity of ) injection 18:45: 18:42 [place] 10 mg 00 :00 ONCE, 1 Medical dose, On [facility] 05/10/22 at 1245, JOE NaCl 0.9% 2021-05- No 1000mL at 999 Uni vers (NS) bolus 07-11 mL/hr, ity of infusion 17:45: 20:00 1,000 mL, [place] 1,000 mL 00 :00 IV Medical Infusion, Branch ONCE, 1 dose, On [facility] 05/10/22 at 1145, JOE cefpodoxime 2021-05- Yes [id number] 100mg Take 1 Univers 100 mg 2-17 12-25 tablet by ity of tablet 00:00: 05:59 mouth in [place] 00 :00 [facility] and 1 tablet in the evening. Do all this for 7 days. cefpodoxime 2021-05- Yes [id number] 100mg Take 1 Univers 100 mg 2-17 12-25 tablet by ity of tablet 00:00: 05:59 mouth in [place] 00 :00 [facility] and 1 tablet in the evening. Do all this for 7 days. cefpodoxime 2021-05- Yes [id number] 100mg Take 1 Univers 100 mg 2-17 12-25 tablet by ity of tablet 00:00: 05:59 mouth in [place] 00 :00 [facility] and 1 tablet in the evening. [...] Medical ONCE, 1 Branch dose, On [facility] 05/06/22 at 1800, JOE ketorolac 2021-05 No 15mg 15 mg, Unive rs (TORADOL) 2-15 12-15 Slow IV ity of injection 22:00: 22:19 Push, [place] 15 mg 00 :00 ONCE, 1 Medical dose, On Branch [facility] 05/06/22 at 1600, JOE NaCl 0.9% 2021-05 No 1000mL at 999 Uni vers (NS) bolus 2-15 12-15 mL/hr, ity of infusion 22:00: 23:41 1,000 mL, [place] 1,000 mL 00 :00 IV Medical Infusion, Branch ONCE, 1 dose, On [facility] 05/06/22 at 1600, JOE ondansetron 2021-05- No 8mg 8 mg, Slow Univers (ZOFRAN 2-15 12-15 IV Push, ity of (PF)) 21:15: 22:19 ONCE, 1 [place] injection 8 00 :00 dose, On Medi porfirio mg [facility] [place] 05/06/22 at 1515, JOE ondansetron 2021-05 Yes [id number] 1-2 U nivers 4 mg tablet 2-15 tablets ity o f 00:00: every 8 [place] 00 hours as Medical needed for Branch nausea benzonatate 2021-05 Yes [id number] 200mg Take 1 Univers 200 mg 2-15 capsule by ity of capsule 00:00: mouth 3 [place] 00 (three) Medical times Branch daily as needed for Cough. albuterol 2021-05 Yes [id number] 2{puff} Inhale 2 Univers 90 2-15 Puffs ity of mcg/actuati 00:00: every 4 [place] on inhaler 00 (four) Medical hours as Branch needed for Wheezing or Shortness of Breath. butalbital- 2021-05 Yes [id number] 1{tbl} Take 1 Univers acetaminoph 2-15 tablet by ity of en-caff 00:00: mouth [place] 50-325-40 00 every 4 Medical mg tablet (four) Branch hours as needed (headache) . ondansetron 2021-05 Yes [id number] 1-2 U nivers 4 mg tablet 2-15 tablets ity o f 00:00: every 8 [place] 00 hours as Medical needed for Branch nausea benzonatate 2021-05 Yes [id number] 200mg Take 1 Univers 200 mg 2-15 capsule by ity of capsule 00:00: mouth 3 [place] 00 (three) Medical times Branch daily as needed for Cough. albuterol 2021-05 Yes [id number] 2{puff} Inhale 2 Univers 90 2-15 Puffs ity of mcg/actuati 00:00: every 4 [place] on inhaler 00 (four) Medical hours as Branch needed for Wheezing or Shortness of Breath. butalbital- 2021-05 Yes [id number] 1{tbl} Take 1 Univers acetaminoph 2-15 tablet by ity of en-caff 00:00: mouth [place] 50-325-40 00 every 4 Medical mg tablet (four) Branch hours as needed (headache) . ondansetron 2021-05 Yes [id number] 1-2 U nivers 4 mg tablet 2-15 tablets ity o f 00:00: every 8 [place] 00 hours as Medical needed for Branch nausea benzonatate 2021-05 Yes [id number] 200mg Take 1 Univers 200 mg 2-15 capsule by ity of capsule 00:00: mouth 3 [place] 00 (three) Medical times Branch daily as needed for Cough. albuterol 2021-05 Yes [id number] 2{puff} Inhale 2 Univers 90 2-15 Puffs ity of mcg/actuati 00:00: every 4 [place] on inhaler 00 (four) Medical hours as Branch needed for Wheezing or Shortness of Breath. butalbital- 2021-05 Yes [id number] 1{tbl} Take 1 Univers acetaminoph 2-15 tablet by ity of en-caff 00:00: mouth [place] 50-325-40 00 every 4 Medical mg tablet (four) Branch hours as needed (headache) . ondansetron 2021-05 Yes [id number] 1-2 U nivers 4 mg tablet 2-15 tablets ity o f 00:00: every 8 [place] 00 hours as Medical needed for Branch nausea benzonatate 2021-05 Yes [id number] 200mg Take 1 Univers 200 mg 2-15 capsule by ity of capsule 00:00: mouth 3 [place] 00 (three) Medical times Branch daily as needed for Cough. albuterol 2021-05 Yes [id number] 2{puff} Inhale 2 Univers 90 2-15 Puffs ity of mcg/actuati 00:00: every 4 [place] on inhaler 00 (four) Medical hours as Branch needed for Wheezing or Shortness of Breath. butalbital- 2021-05 Yes [id number] 1{tbl} Take 1 Univers acetaminoph 2-15 tablet by ity of en-caff 00:00: mouth [place] 50-325-40 00 every 4 Medical mg tablet (four) Branch hours as needed (headache) . ondansetron 2021-05 Yes [id number] 1-2 U nivers 4 mg tablet 2-15 tablets ity o f 00:00: every 8 [place] 00 hours as Medical needed for Branch nausea benzonatate 2021-05 Yes [id number] 200mg Take 1 Univers 200 mg 2-15 capsule by ity of capsule 00:00: mouth 3 [place] 00 (three) Medical times Branch daily as needed for Cough. albuterol 2021-05 Yes [id number] 2{puff} Inhale 2 Univers 90 2-15 Puffs ity of mcg/actuati 00:00: every 4 [place] on inhaler 00 (four) Medical hours as Branch needed for Wheezing or Shortness of Breath. butalbital- 2021-05 Yes [id number] 1{tbl} Take 1 Univers acetaminoph 2-15 tablet by ity of en-caff 00:00: mouth [place] 50-325-40 00 every 4 Medical mg tablet (four) Branch hours as needed (headache) . ondansetron 2021-05 Yes [id number] 1-2 U nivers 4 mg tablet 2-15 tablets ity o f 00:00: every 8 [place] 00 hours as Medical needed for Branch nausea benzonatate 2021-05 Yes [id number] 200mg Take 1 Univers 200 mg 2-15 capsule by ity of capsule 00:00: mouth 3 [place] 00 (three) Medical times Branch daily as needed for Cough. albuterol 2021-05 Yes [id number] 2{puff} Inhale 2 Univers 90 2-15 Puffs ity of mcg/actuati 00:00: every 4 [place] on inhaler 00 (four) Medical hours as Branch needed for Wheezing or Shortness of Breath. butalbital- 2021-05 Yes [id number] 1{tbl} Take 1 Univers acetaminoph 2-15 tablet by ity of en-caff 00:00: mouth [place] 50-325-40 00 every 4 Medical mg tablet (four) Branch hours as needed (headache) . [facility] 2021-05- Yes [id number] 2{tbl} Take 2 Univers r-ritonavir 2-15 12-21 tablets by i ty of (PAXLOVID, 00:00: 05:59 mouth in [place] EUA,) 300 00 :00 the Medical mg (150 mg morning Branch x 2)-100 mg and 2 tablet tablets in the evening. Do all this for 5 days. [facility] 2021-05- Yes [id number] 2{tbl} Take 2 Univers r-ritonavir 2-15 12-21 tablets by i ty of (PAXLOVID, 00:00: 05:59 mouth in [place] EUA,) 300 00 :00 the Medical mg (150 mg morning Branch x 2)-100 mg and 2 tablet tablets in the evening. Do all this for 5 days. [facility] 2021-05- Yes [id number] 2{tbl} Take 2 Univers r-ritonavir 2-15 12-21 tablets by i ty of (PAXLOVID, 00:00: 05:59 mouth in [place] EUA,) 300 00 :00 the Medical mg (150 mg morning Branch x 2)-100 mg and 2 tablet tablets in the evening. Do all this for 5 days. [facility] 2021-05- Yes [id number] 2{tbl} Take 2 Univers r-ritonavir 2-15 12-21 [...] 04/22/22 at 1645, Routine amoxicillin 2021-05 Yes [id number] 1{tbl} Take 1 Univers -clavulanat 2- [id number] tablet by i ty of e 875-125 00:00: mouth [place] mg per 00 every 12 Medical tablet (twelve) Branch hours. ondansetron 2021-05 Yes [id number] 4mg Take 1 Univers 4 mg 2- [id number] tablet by ity of disintegrat 00:00: mouth [place] ing tablet 00 every 8 Medica l (eight) Branch hours as needed for Nausea and Vomiting (N/V). amoxicillin 2021-05 Yes [id number] 1{tbl} Take 1 Univers -clavulanat 2- [id number] tablet by i ty of e 875-125 00:00: mouth [place] mg per 00 every 12 Medical tablet (twelve) Branch hours. ondansetron 2021-05 Yes [id number] 4mg Take 1 Univers 4 mg 2- [id number] tablet by ity of disintegrat 00:00: mouth [place] ing tablet 00 every 8 Medica l (eight) Branch hours as needed for Nausea and Vomiting (N/V). amoxicillin 2021-05 Yes [id number] 1{tbl} Take 1 Univers -clavulanat 2-01 [id number] tablet by i ty of e 875-125 00:00: mouth [place] mg per 00 every 12 Medical tablet (twelve) Branch hours. ondansetron 2021-05 Yes [id number] 4mg Take 1 Univers 4 mg 2- [id number] tablet by ity of disintegrat 00:00: mouth [place] ing tablet 00 every 8 Medica l (eight) Branch hours as needed for Nausea and Vomiting (N/V). amoxicillin 2021-05 Yes [id number] 1{tbl} Take 1 Univers -clavulanat 2-01 [id number] tablet by i ty of e 875-125 00:00: mouth [place] mg per 00 every 12 Medical tablet (twelve) Branch hours. ondansetron 2021-05 Yes [id number] 4mg Take 1 Univers 4 mg 2-01 [id number] tablet by ity of disintegrat 00:00: mouth [place] ing tablet 00 every 8 Medica l (eight) Branch hours as needed for Nausea and Vomiting (N/V). amoxicillin 2021-05 Yes [id number] 1{tbl} Take 1 Univers -clavulanat 2-01 [id number] tablet by i ty of e 875-125 00:00: mouth [place] mg per 00 every 12 Medical tablet (twelve) Branch hours. ondansetron 2021-05 Yes [id number] 4mg Take 1 Univers 4 mg 2- [id number] tablet by ity of disintegrat 00:00: mouth [place] ing tablet 00 every 8 Medica l (eight) Branch hours as needed for Nausea and Vomiting (N/V). amoxicillin 2021-05 Yes [id number] 1{tbl} Take 1 Univers -clavulanat 2-01 [id number] tablet by i ty of e 875-125 00:00: mouth [place] mg per 00 every 12 Medical tablet (twelve) Branch hours. ondansetron 2021-05 Yes [id number] 4mg Take 1 Univers 4 mg 2-01 [id number] tablet by ity of disintegrat 00:00: mouth [place] ing tablet 00 every 8 Medica l (eight) Branch hours as needed for Nausea and Vomiting (N/V). amoxicillin 2021-05 Yes [id number] 1{tbl} Take 1 Univers -clavulanat 2-01 [id number] tablet by i ty of e 875-125 00:00: mouth [place] mg per 00 every 12 Medical tablet (twelve) Branch hours. ondansetron 2021-05 Yes [id number] 4mg Take 1 Univers 4 mg 2-01 [id number] tablet by ity of disintegrat 00:00: mouth [place] ing tablet 00 every 8 Medica l (eight) Branch hours as needed for Nausea and Vomiting (N/V). amoxicillin 2021-05 Yes [id number] 1{tbl} Take 1 Univers -clavulanat 06-23 [id number] tablet by i ty of e 875-125 00:00: mouth [place] mg per 00 every 12 Medical tablet (twelve) Branch hours. ondansetron 2021-05 Yes [id number] 4mg Take 1 Univers 4 mg 06-23 [id number] tablet by ity of disintegrat 00:00: mouth [place] ing tablet 00 every 8 Medica l (eight) Branch hours as needed for Nausea and Vomiting (N/V). zoster 2021-05- No [id number] .5mL 0.5 mL by Univers vaccine, 0-14 -15 9104 Intramuscu ity of recombinant 00:00: 04:59 lar route [place] (SHINGRIX, 00 :00 once now Medic al PF,) for 1 Branch injection dose. And repeat in 2-6 months zoster 2021-05- No [id number] .5mL 0.5 mL by Univers vaccine, 0-14 - 9104 Intramuscu ity of recombinant 00:00: 04:59 lar route [place] (SHINGRIX, 00 :00 once now Medic al PF,) for 1 Branch injection dose. And repeat in 2-6 months zoster 2021-05- No [id number] .5mL 0.5 mL by Univers vaccine, 0-05 [...] o f 1 mg tablet 19:28: at [place] [address] bedtime. Medical Branch traZODone 2021-0 Yes 50mg Take 50 mg Un matt 100 mg 9-27 by mouth ity of tablet 19:28: at [place] [address] bedtime. Medical Branch hydralAZINE 2021-0 Yes 25mg [...] o f 1 mg tablet 19:28: at [place] [address] bedtime. Medical Branch traZODone 2021-0 Yes 50mg Take 50 mg Un matt 100 mg 9-27 by mouth ity of tablet 19:28: at [place] [address] bedtime. Medical Branch hydralAZINE 2021-0 Yes 25mg [...] o f 1 mg tablet 19:28: at [place] [address] bedtime. Medical Branch traZODone 2021-0 Yes 50mg Take 50 mg Un matt 100 mg 9-27 by mouth ity of tablet 19:28: at [place] [address] bedtime. Medical Branch hydralAZINE 2021-0 Yes 25mg [...] 100 mg 04 (two) Medical tablet times [place] daily. amLODIPine 2021-0 Yes 10mg Take 10 mg U nivers (NORVASC) 9-27 by mouth ity of 10 mg 19:28: daily. [place] tablet 04 Medical Branch clonazePAM 2021-0 Yes 1mg Take 1 mg Un matt (KLONOPIN) 9-27 by mouth ity o f 1 mg tablet 19:28: at [place] [address] bedtime. Medical Branch traZODone 2021-0 Yes 50mg Take 50 mg Un matt 100 mg 9-27 by mouth ity of tablet 19:28: at [place] [address] bedtime. Medical Branch hydralAZINE 2021-0 Yes 25mg [...] o f 1 mg tablet 19:28: at [place] [address] bedtime. Medical Branch traZODone 2021-0 Yes 50mg Take 50 mg Un matt 100 mg 9-27 by mouth ity of tablet 19:28: at [place] [address] bedtime. Medical Branch hydralAZINE 2021-0 Yes 25mg [...] 100 mg 04 (two) Medical tablet times [place] daily. amLODIPine 2021-0 Yes 10mg Take 10 mg U nivers (NORVASC) 9-27 by mouth ity of 10 mg 19:28: daily. [place] tablet 04 Medical Branch clonazePAM 2021-0 Yes 1mg Take 1 mg Un matt (KLONOPIN) 9-27 by mouth ity o f 1 mg tablet 19:28: at [place] [address] bedtime. Medical Branch traZODone 2021-0 Yes 50mg Take 50 mg Un matt 100 mg 9-27 by mouth ity of tablet 19:28: at [place] [address] bedtime. Medical Branch hydralAZINE 2021-0 Yes 25mg [...] o f 1 mg tablet 19:28: at [place] [address] bedtime. Medical Branch traZODone 2-0 Yes 50mg Take 50 mg Un matt 100 mg 9-27 by mouth ity of tablet 19:28: at [place] [address] bedtime. Medical Branch hydralAZINE 2021-0 Yes 25mg [...] o f 1 mg tablet 19:28: at [place] [address] bedtime. Medical Branch traZODone 2-0 Yes 50mg Take 50 mg Un matt 100 mg 9-27 by mouth ity of tablet 19:28: at [place] [address] bedtime. Medical Branch hydralAZINE 2-0 Yes 25mg [...] o f 1 mg tablet 19:28: at [place] [address] bedtime. Medical Branch traZODone 2021-0 Yes 50mg Take 50 mg Un matt 100 mg 9-27 by mouth ity of tablet 19:28: at [place] [address] bedtime. Medical Branch hydralAZINE 2021-0 Yes 25mg [...] o f 1 mg tablet 19:28: at [place] [address] bedtime. Medical Branch traZODone 2021-0 Yes 50mg Take 50 mg Un matt 100 mg 9-27 by mouth ity of tablet 19:28: at [place] [address] bedtime. Medical Branch hydralAZINE 2021-0 Yes 25mg [...] o f 1 mg tablet 19:28: at [place] [address] bedtime. Medical Branch traZODone 2021-0 Yes 50mg Take 50 mg Un matt 100 mg 9-27 by mouth ity of tablet 19:28: at [place] [address] bedtime. Medical Branch hydralAZINE 2021-0 Yes 25mg [...] o f 1 mg tablet 19:28: at [place] [address] bedtime. Medical Branch traZODone 2022-0 Yes 50mg Take 50 mg Un matt 100 mg 9-27 by mouth ity of tablet 19:28: at [place] [address] bedtime. Medical Branch hydralAZINE 2-0 Yes 25mg [...] o f 1 mg tablet 19:28: at [place] [address] bedtime. Medical Branch traZODone 2021-0 Yes 50mg Take 50 mg Un matt 100 mg 9-27 by mouth ity of tablet 19:28: at [place] [address] bedtime. Medical Branch hydralAZINE 2021-0 Yes 25mg [...] o f 1 mg tablet 19:28: at [place] [address] bedtime. Medical Branch traZODone 2021-0 Yes 50mg Take 50 mg Un matt 100 mg 9-27 by mouth ity of tablet 19:28: at [place] [address] bedtime. Medical Branch hydralAZINE 0 Yes 25mg [...] of 10 mg 19:28: daily. [place] tablet Medical Branch clonazePAM 0 Yes 1mg Take 1 mg Un matt (KLONOPIN) 9- by mouth ity o f 1 mg tablet 19:28: at [place] [address] bedtime. Medical Branch traZODone 2021-0 Yes 50mg Take 50 mg Un matt 100 mg 9-27 by mouth ity of tablet 19:28: at [place] [address] bedtime. Medical Branch hydralAZINE 2021-0 Yes 25mg [...] o f 1 mg tablet 19:28: at [place] [address] bedtime. Medical Branch traZODone Yes 50mg Take 50 mg Un matt 100 mg 02-16 by mouth ity of tablet 19:28: at [place] [address] bedtime. [facility] Branch cefpodoxime 2021- No [id number] 200mg Take 1 Univers 200 mg 02-16 tablet by ity of tablet 00:00: 04:59 mouth in [place] 00 :00 the Medical morning Branch and 1 tablet in the evening. Do all this for 3 days. cefpodoxime 2021- No [id number] 200mg Take 1 Univers 200 mg 02-16 tablet by ity of tablet 00:00: 04:59 mouth in [place] 00 :00 the [facility] and 1 tablet in the evening. Do all this for 3 days. haloperidol 2021- No 2mg 2 mg, Slow Univers lactate 02-15 IV Push, ity of (HALDOL) 09:00: 09:12 ONCE, 1 [place] injection 2 00 :00 dose, On Medi porfirio mg Mon Branch 02/15/22 at 0400, Routine hydroCHLORO 0 Yes 25mg 25 mg, Univ ers thiazide 9-25 Oral, ity of (ESIDRIX) 14:00: DAILY, [place] capsule 25 00 First dose Med ical mg on [place] Branch 02/14/22 at 0900, Until Discontinu ed, Routine butalbital- 0 Yes 1{tbl} 1 tablet, Univers acetaminoph 9-24 Oral, ity of en-caff 18:46: Q6HPRN, [place] (ESGIC) 06 Starting Medical 50-325-40 on Sat [...] 1700, Until Discontinu ed, Routine aspirin 2021-0 2021- No 325mg 325 mg, Unive rs [...] First dose [place] mg 00 on [facility] Medical 02/11/22 at Branch 1300, Until Discontinu ed, JOE metoprolol 2021-0 Yes 100mg 100 mg, Uni vers tartrate 02-11 Oral, BID, ity o f (LOPRESSOR) 18:00: First dose [place] tablet 100 00 on [facility] Medical mg 02/11/22 at Branch 1300, Until Discontinu ed, Routine lisinopriL 2021-0 Yes 40mg 40 mg, Unive rs (PRINIVIL,Z 02-11 Oral, BID, it y of ESTRIL) 18:00: First dose [place] tablet 40 00 on [facility] Medical mg 02/11/22 at Branch 1300, Until Discontinu ed, Routine emtricitabi 2021-0 Yes 1{tbl} 1 tablet, Univers ne-tenofovi 02-11 Oral, ity of r alafen 18:00: DAILY, [place] (DESCOVY) 00 First dose Medi porfirio tablet 1 on [facility] tablet 02/11/22 at 1300, Until Discontinu ed, Routine ipratropium 2021-0 Yes .5mg 0.5 mg, Uni vers (ATROVENT) 02-11 Inhalation ity of 0.02 % 17:57: , QIDPRN, [place] nebulizer 10 Starting Medica l solution on [facility] Branch 0.5 mg 02/11/22 at 1257, Until Discontinu ed, Routine, Wheezing, Shortness of Breath amLODIPine 2021-0 Yes 10mg 10 mg, Unive rs (NORVASC) 02-11 Oral, ity of tablet 10 17:30: DAILY, [place] mg 00 First dose Medical (after Branch last modificati on) on [facility] 02/11/22 at 1230, Until Discontinu ed, Routine hydrALAZINE 2022-0 2022- No 25mg 25 mg, Uni vers (APRESOLINE [...] [place] as 17 Starting Medical on [facility] Branch 02/11/22 at 0908, Until Discontinu ed, Routine, Insomnia acetaminoph 2021- No 1{tbl} 1 tablet, Univers en-codeine 02-11 Oral, ity of (TYLENOL 14:06: 17:37 [facility] [place] #3) 300-30 19 :24 Starting Medic al mg tablet 1 on [place] [facility] tablet 02/11/22 at 0906, Until Tue02/12/22 at 1237, Routine, Pain (scale 4-6) sennosides- Yes 1{tbl} 1 tablet, Univers docusate 02-11 Oral, ity of sodium 14:06: QDAILYPRN, [place] (SENOKOT-S) 09 Starting Medi porfirio 8.6-50 mg on [facility] per tablet 02/11/22 at 1 tablet 0906, Until Discontinu ed, Routine, Constipati on ondansetron Yes 4mg 4 mg, Slow Univers (ZOFRAN 02-11 IV Push, ity of (PF)) 14:05: Q6HPRN, [place] injection 4 59 Starting Medi porfirio mg on [facility] 02/11/22 at 0905, Until Discontinu ed, Routine, Nausea and Vomiting (N/V) acetaminoph Yes 650mg 650 mg, Un matt en 02-11 Oral, ity of (TYLENOL) 14:04: Q6HPRN, [place] tablet 650 37 Starting Medic al mg [...] ity of ) 25 mg 09:10: daily. [place] tablet 54 Medical Branch amLODIPine 0 Yes 10mg Take 10 mg U nivers (NORVASC) 02-11 by mouth ity of 10 mg 09:10: daily. [place] tablet 54 Medical Branch piperacilli 2021- No 3.375g 3.375 g, [...] of therapy: 72 hours iopamidol 2021- No [id number] 60mL 60 mL, Univers (ISOVUE 02-11 Intravenou [...] 00 :00 dose, On Medic al mg [facility] 02/11/22 at 0015, JOE emtricitabi 0 Yes [id number] Take one Univers ne-tenofovi 9-12 po daily ity of r alafen 00:00: [place] (DESCOVY) 00 Medical tablet Branch emtricitabi Yes [id number] Take one Univers ne-tenofovi 9-12 po daily ity of r alafen 00:00: [place] (DESCOVY) 00 Medical tablet Branch emtricitabi Yes [id number] Take one Univers ne-tenofovi 9-12 po daily ity of r alafen 00:00: [place] (DESCOVY) 00 Medical tablet Branch emtricitabi Yes [id number] Take one Univers ne-tenofovi 9-12 po daily ity of r alafen 00:00: [place] (DESCOVY) 00 Medical tablet Branch emtricitabi Yes [id number] Take one Univers ne-tenofovi 9-12 po daily ity of r alafen 00:00: [place] (DESCOVY) 00 Medical tablet [facility] [id number] Take one Univers ne-tenofovi 9-12 po daily ity of r alafen 00:00: [place] (DESCOVY) 00 Medical tablet Branch emtricita Yes [id number] Take one Univers ne-tenofovi 9-12 po daily ity of r alafen 00:00: [place] (DESCOVY) 00 Medical tablet Branch emtricita Yes [id number] Take one Univers ne-tenofovi 9-12 po daily ity of r alafen 00:00: [place] (DESCOVY) 00 Medical tablet Branch emtricita Yes [id number] Take one Univers ne-tenofovi 9-12 po daily ity of r alafen 00:00: [place] (DESCOVY) 00 Medical tablet Branch [facility] [id number] Take one Univers ne-tenofovi 9-12 po daily ity of r alafen 00:00: [place] (DESCOVY) 00 Medical tablet Branch [facility] Yes [id number] Take one Univers ne-tenofovi 9-12 po daily ity of r alafen 00:00: [place] (DESCOVY) 00 Medical tablet Branch [facility] Yes [id number] Take one Univers ne-tenofovi 9-12 po daily ity of r alafen 00:00: [place] (DESCOVY) 00 Medical tablet Branch emtricita Yes [id number] Take one Univers ne-tenofovi 9-12 po daily ity of r alafen 00:00: [place] (DESCOVY) 00 Medical tablet Branch emtricita Yes [id number] Take one Univers ne-tenofovi 9-12 po daily ity of r alafen 00:00: [place] (DESCOVY) 00 Medical tablet Branch emtricita Yes [id number] Take one Univers ne-tenofovi 9-12 po daily ity of r alafen 00:00: [place] (DESCOVY) 00 Medical tablet Branch emtricita Yes [id number] Take one Univers ne-tenofovi 9-12 po daily ity of r alafen 00:00: [place] (DESCOVY) 00 Medical tablet Branch emtricitabi 2021-0 Yes [id number] Take one Univers ne-tenofovi 9-12 po daily ity of r alafen 00:00: [place] (DESCOVY) 00 Medical tablet Branch naproxen 2021-0 Yes [id number] 500mg Take 1 U nivers (NAPROSYN) 7-24 tablet by ity of 500 mg 00:00: mouth in [place] tablet 00 the Medical morning Branch and 1 tablet in the evening. Take with meals. methocarbam 2021-0 Yes [id number] 500mg Take 1 Univers oL 500 mg 7-24 tablet by ity o f tablet 00:00: mouth 4 [place] ([facility]) Medical times [place] daily. naproxen 2021-0 Yes [id number] 500mg Take 1 U nivers (NAPROSYN) 7-24 tablet by ity of 500 mg 00:00: mouth in [place] tablet 00 the Medical morning Branch and 1 tablet in the evening. Take with meals. methocarbam 2021-0 Yes [id number] 500mg Take 1 Univers oL 500 mg 7-24 tablet by ity o f tablet 00:00: mouth 4 [place] ([facility]) Medical times Branch daily. naproxen 2-0 Yes [id number] 500mg Take 1 U nivers (NAPROSYN) 7-24 tablet by ity of 500 mg 00:00: mouth in [place] tablet 00 the Medical morning Branch and 1 tablet in the evening. Take with meals. methocarbam 2-0 Yes [id number] 500mg Take 1 Univers oL 500 mg 7-24 tablet by ity o f tablet 00:00: mouth 4 [place] ([facility]) Medical times Branch daily. naproxen 2-0 2022- No [id number] 500mg Take 1 Univers (NAPROSYN) 7-24 10-14 tablet by ity of 500 mg 00:00: 00:00 mouth in [place] tablet 00 :00 the Medical morning Branch and 1 tablet in the evening. Take with meals. methocarbam 2-0 2022- No [id number] 500mg Take 1 [facility] oL 500 mg 7-24 10-14 tablet by ity of tablet 00:00: 00:00 mouth 4 [place] 00 :00 ([facility]) Medical times Branch daily. naproxen 2021- No [id number] 500mg Take 1 Univers (NAPROSYN) 12-13 tablet by ity of 500 mg 00:00: 00:00 mouth in [place] tablet 00 :00 the Medical morning Branch and 1 tablet in the evening. Take with meals. methocarbam 2021- No [id number] 500mg Take 1 [facility] oL 500 mg 12-13 tablet by ity of tablet 00:00: 00:00 mouth 4 [place] 00 :00 (four) Medical times Branch daily. esomeprazol 2021- No 40mg Take 40 mg Univers e (NEXIUM) 11-20 by mouth 2 it y of 40 mg 09:12: 00:00 (two) [place] capsule 03 :00 times Medical daily. Branch amiodarone 2021- No 100mg Take 100 U nivers 100 mg 11-20 mg by ity of tablet 09:11: 00:00 mouth [place] 57 :00 daily. Medical Branch apixaban 2021- No 5mg Take 5 mg Uni vers (ELIQUIS) 5 11-20 by mouth 2 i ty of mg tablet 09:11: 00:00 (two) [place] 35 :00 times Medical daily. Branch traZODONE No Take by [facility] ers (DESYREL) 11-20 mouth at ity o f 10 mg/mL 09:10: 00:00 [place]time. [place] oral 28 :00 Medical suspension Branch hydralAZINE Yes 25mg Take 25 mg [facility] (APRESOLINE 11-20 by mouth ity of ) 25 mg 08:47: daily. [place] tablet 47 Medical Branch cephALEXin 2021- No [id number] 500mg Take 1 Univers (KEFLEX) 10-24 capsule [...] Indication s: acute pain buPROPion 2021-0 Yes [id number] 150mg Take 1 U nivers XL 4-12 tablet by ity of (WELLBUTRIN 00:00: mouth [place] XL) 150 mg 00 daily. Medical 24 hr Branch tablet busPIRone 2021-0 Yes [id number] 30mg Take 1 Un matt 30 mg 4-12 tablet by ity of tablet 00:00: mouth 2 [place] 00 (two) Medical times Branch daily. SERTraline 2021-0 Yes [id number] 200mg Take 2 [facility] 100 mg 4-12 tablets by ity of tablet 00:00: mouth [place] 00 daily. Medical Branch buPROPion 0 Yes [id number] 150mg Take 1 U nivers XL 4-12 tablet by ity of (WELLBUTRIN 00:00: mouth [place] XL) 150 mg 00 daily. Medical 24 hr Branch tablet busPIRone 2021-0 Yes [id number] 30mg Take 1 Un matt 30 mg 4-12 tablet by ity of tablet 00:00: mouth 2 [place] 00 (two) Medical times Branch daily. SERTraline 2021-0 Yes [id number] 200mg Take 2 [facility] 100 mg 4-12 tablets by ity of tablet 00:00: mouth [place] 00 daily. Medical Branch buPROPion 2021-0 Yes [id number] 150mg Take 1 U nivers XL 4-12 tablet by ity of (WELLBUTRIN 00:00: mouth [place] XL) 150 mg 00 daily. Medical 24 hr Branch tablet busPIRone 2021-0 Yes [id number] 30mg Take 1 Un matt 30 mg 4-12 tablet by ity of tablet 00:00: mouth 2 [place] 00 (two) Medical times Branch daily. SERTraline 2021-0 Yes [id number] 200mg Take 2 [facility] 100 mg 4-12 tablets by ity of tablet 00:00: mouth [place] 00 daily. Medical Branch buPROPion 2021-0 Yes [id number] 150mg Take 1 U nivers XL 4-12 tablet by ity of (WELLBUTRIN 00:00: mouth [place] XL) 150 mg 00 daily. Medical 24 hr Branch tablet busPIRone 2021-0 Yes [id number] 30mg Take 1 Un matt 30 mg 4-12 tablet by ity of tablet 00:00: mouth 2 [place] 00 (two) Medical times Branch daily. SERTraline 2021-0 Yes [id number] 200mg Take 2 [facility] 100 mg 4-12 tablets by ity of tablet 00:00: mouth [place] 00 daily. Medical Branch buPROPion 0 Yes [id number] 150mg Take 1 U nivers XL 4-12 tablet by ity of (WELLBUTRIN 00:00: mouth [place] XL) 150 mg 00 daily. Medical 24 hr Branch tablet busPIRone 2021-0 Yes [id number] 30mg Take 1 Un matt 30 mg 4-12 tablet by ity of tablet 00:00: mouth 2 [place] 00 (two) Medical times Branch daily. SERTraline 0 Yes [id number] 200mg Take 2 [facility] 100 mg 4-12 tablets by ity of tablet 00:00: mouth [place] 00 daily. Medical Branch buPROPion 0 Yes [id number] 150mg Take 1 U nivers XL 4-12 tablet by ity of (WELLBUTRIN 00:00: mouth [place] XL) 150 mg 00 daily. Medical 24 hr Branch tablet busPIRone 2021-0 Yes [id number] 30mg Take 1 Un matt 30 mg 4-12 tablet by ity of tablet 00:00: mouth 2 [place] 00 (two) Medical times Branch daily. SERTraline 2021-0 Yes [id number] 200mg Take 2 [facility] 100 mg 4-12 tablets by ity of tablet 00:00: mouth [place] 00 daily. Medical Branch buPROPion 0 Yes [id number] 150mg Take 1 U nivers XL 4-12 tablet by ity of (WELLBUTRIN 00:00: mouth [place] XL) 150 mg 00 daily. Medical 24 hr Branch tablet busPIRone 2021-0 Yes [id number] 30mg Take 1 Un matt 30 mg 4-12 tablet by ity of tablet 00:00: mouth 2 [place] 00 (two) Medical times Branch daily. SERTraline 2021-0 Yes [id number] 200mg Take 2 [facility] 100 mg 4-12 tablets by ity of tablet 00:00: mouth [place] 00 daily. Medical Branch buPROPion 2021-0 Yes [id number] 150mg Take 1 U nivers XL 4-12 tablet by ity of (WELLBUTRIN 00:00: mouth [place] XL) 150 mg 00 daily. Medical 24 hr Branch tablet busPIRone 2021-0 Yes [id number] 30mg Take 1 Un matt 30 mg 4-12 tablet by ity of tablet 00:00: mouth 2 [place] 00 (two) Medical times Branch daily. SERTraline 2021-0 Yes [id number] 200mg Take 2 [facility] 100 mg 4-12 tablets by ity of tablet 00:00: mouth [place] 00 daily. Medical Branch buPROPion 2021-0 Yes [id number] 150mg Take 1 U nivers XL 4-12 tablet by ity of (WELLBUTRIN 00:00: mouth [place] XL) 150 mg 00 daily. Medical 24 hr Branch tablet busPIRone 2021-0 Yes [id number] 30mg Take 1 Un matt 30 mg 4-12 tablet by ity of tablet 00:00: mouth 2 (two) Medical times Branch daily. SERTraline 2021-0 Yes [id number] 200mg Take 2 [facility] 100 mg 4-12 tablets by ity of tablet 00:00: mouth [place] 00 daily. Medical Branch buPROPion 2021-0 Yes [id number] 150mg Take 1 U nivers XL 4-12 tablet by ity of (WELLBUTRIN 00:00: mouth [place] XL) 150 mg 00 daily. Medical 24 hr Branch tablet busPIRone 2021-0 Yes [id number] 30mg Take 1 Un matt 30 mg 4-12 tablet by ity of tablet 00:00: mouth 2 00 (two) Medical times Branch daily. SERTraline 2021-0 Yes [id number] 200mg Take 2 [facility] 100 mg 4-12 tablets by ity of tablet 00:00: mouth [place] 00 daily. Medical Branch buPROPion 2021-0 Yes [id number] 150mg Take 1 U nivers XL 4-12 tablet by ity of (WELLBUTRIN 00:00: mouth [place] XL) 150 mg 00 daily. Medical 24 hr Branch tablet busPIRone 2021-0 Yes [id number] 30mg Take 1 Un matt 30 mg 4-12 tablet by ity of tablet 00:00: mouth 2 00 (two) Medical times Branch daily. SERTraline 2021-0 Yes [id number] 200mg Take 2 [facility] 100 mg 4-12 tablets by ity of tablet 00:00: mouth [place] 00 daily. Medical Branch buPROPion 2021-0 Yes [id number] 150mg Take 1 U nivers XL 4-12 tablet by ity of (WELLBUTRIN 00:00: mouth [place] XL) 150 mg 00 daily. Medical 24 hr Branch tablet busPIRone 2021-0 Yes [id number] 30mg Take 1 Un matt 30 mg 4-12 tablet by ity of tablet 00:00: mouth 2 [place] 00 (two) Medical times Branch daily. SERTraline 0 Yes [id number] 200mg Take 2 [facility] 100 mg 4-12 tablets by ity of tablet 00:00: mouth [place] 00 daily. Medical Branch buPROPion 0 Yes [id number] 150mg Take 1 U nivers XL 4-12 tablet by ity of (WELLBUTRIN 00:00: mouth [place] XL) 150 mg 00 daily. Medical 24 hr Branch tablet busPIRone 2021-0 Yes [id number] 30mg Take 1 Un matt 30 mg 4-12 tablet by ity of tablet 00:00: mouth 2 [place] 00 (two) Medical times Branch daily. SERTraline 2021-0 Yes [id number] 200mg Take 2 [facility] 100 mg 4-12 tablets by ity of tablet 00:00: mouth [place] 00 daily. Medical Branch buPROPion 0 Yes [id number] 150mg Take 1 U nivers XL 4-12 tablet by ity of (WELLBUTRIN 00:00: mouth [place] XL) 150 mg 00 daily. Medical 24 hr Branch tablet busPIRone 2021-0 Yes [id number] 30mg Take 1 Un matt 30 mg 4-12 tablet by ity of tablet 00:00: mouth 2 [place] 00 (two) Medical times Branch daily. SERTraline 2021-0 Yes [id number] 200mg Take 2 [facility] 100 mg 4-12 tablets by ity of tablet 00:00: mouth [place] 00 daily. Medical Branch buPROPion 2021-0 Yes [id number] 150mg Take 1 U nivers XL 4-12 tablet by ity of (WELLBUTRIN 00:00: mouth [place] XL) 150 mg 00 daily. Medical 24 hr Branch tablet busPIRone 2021-0 Yes [id number] 30mg Take 1 Un matt 30 mg 4-12 tablet by ity of tablet 00:00: mouth 2 [place] 00 (two) Medical times Branch daily. SERTraline 2021-0 Yes [id number] 200mg Take 2 [facility] 100 mg 4-12 tablets by ity of tablet 00:00: mouth [place] 00 daily. Medical Branch buPROPion 0 Yes [id number] 150mg Take 1 U nivers XL 4-12 tablet by ity of (WELLBUTRIN 00:00: mouth [place] XL) 150 mg 00 daily. Medical 24 hr Branch tablet busPIRone 0 Yes [id number] 30mg Take 1 Un matt 30 mg 4-12 tablet by ity of tablet 00:00: mouth 2 [place] 00 (two) Medical times Branch daily. SERTraline 0 Yes [id number] 200mg Take 2 [facility] 100 mg 4-12 tablets by ity of tablet 00:00: mouth [place] 00 daily. Medical Branch buPROPion 0 Yes [id number] 150mg Take 1 U nivers XL 4-12 tablet by ity of (WELLBUTRIN 00:00: mouth [place] XL) 150 mg 00 daily. Medical 24 hr Branch tablet busPIRone 2021-0 Yes [id number] 30mg Take 1 Un matt 30 mg 4-12 tablet by ity of tablet 00:00: mouth 2 [place] 00 (two) Medical times Branch daily. SERTraline 0 Yes [id number] 200mg Take 2 [facility] 100 mg 4-12 tablets by ity of tablet 00:00: mouth [place] 00 daily. Medical Branch buPROPion 0 Yes [id number] 150mg Take 1 U nivers XL 4-12 tablet by ity of (WELLBUTRIN 00:00: mouth [place] XL) 150 mg 00 daily. Medical 24 hr Branch tablet busPIRone 2021-0 Yes [id number] 30mg Take 1 Un matt 30 mg 4-12 tablet by ity of tablet 00:00: mouth 2 [place] 00 (two) Medical times Branch daily. SERTraline 2021-0 Yes [id number] 200mg Take 2 [facility] 100 mg 4-12 tablets by ity of tablet 00:00: mouth [place] 00 daily. Medical Branch raltegravir 0 Yes [id number] 400mg Take 1 Univers (ISENTRESS) 3-28 tablet by ity of 400 mg 00:00: mouth 2 [place] tablet 00 (two) Medical times Branch daily. raltegravir 2022-0 Yes [id number] 400mg Take 1 [facility] (ISENTRESS) 3-28 tablet by ity of 400 mg 00:00: mouth 2 [place] tablet 00 (two) Medical times Branch daily. raltegravir 2022-0 Yes [id number] 400mg Take 1 Univers (ISENTRESS) 3-28 tablet by ity of 400 mg 00:00: mouth 2 [place] tablet 00 (two) Medical times Branch daily. raltegravir 2022-0 Yes [id number] 400mg Take 1 Univers (ISENTRESS) 3-28 tablet by ity of 400 mg 00:00: mouth 2 [place] tablet 00 (two) Medical times Branch daily. raltegravir 2022-0 Yes [id number] 400mg Take 1 [facility] (ISENTRESS) 3-28 tablet by ity of 400 mg 00:00: mouth 2 [place] tablet 00 (two) Medical times Branch daily. raltegravir 2-0 Yes [id number] 400mg Take 1 Univers (ISENTRESS) 3-28 tablet by ity of 400 mg 00:00: mouth 2 [place] tablet 00 (two) Medical times Branch daily. raltegravir 2022-0 Yes [id number] 400mg Take 1 Univers (ISENTRESS) 3-28 tablet by ity of 400 mg 00:00: mouth 2 [place] tablet 00 (two) Medical times Branch daily. raltegravir 2022-0 Yes [id number] 400mg Take 1 Univers (ISENTRESS) 3-28 tablet by ity of 400 mg 00:00: mouth 2 [place] tablet 00 (two) Medical times Branch daily. raltegravir 2022-0 Yes [id number] 400mg Take 1 Univers (ISENTRESS) 3-28 tablet by ity of 400 mg 00:00: mouth 2 [place] tablet 00 (two) Medical times Branch daily. raltegravir 2022-0 Yes [id number] 400mg Take 1 Univers (ISENTRESS) 3-28 tablet by ity of 400 mg 00:00: mouth 2 [place] tablet 00 (two) Medical times Branch daily. raltegravir 2022-0 Yes [id number] 400mg Take 1 Univers (ISENTRESS) 3-28 tablet by ity of 400 mg 00:00: mouth 2 [place] tablet 00 (two) Medical times Branch daily. raltegravir 2021-0 Yes [id number] 400mg Take 1 Univers (ISENTRESS) 3-28 tablet by ity of 400 mg 00:00: mouth 2 [place] tablet 00 (two) Medical times Branch daily. raltegravir 2021-0 Yes [id number] 400mg Take 1 Univers (ISENTRESS) 3-28 tablet by ity of 400 mg 00:00: mouth 2 [place] tablet 00 (two) Medical times Branch daily. raltegravir 2021-0 Yes [id number] 400mg Take 1 Univers (ISENTRESS) 3-28 tablet by ity of 400 mg 00:00: mouth 2 [place] tablet 00 (two) Medical times Branch daily. raltegravir 2021-0 Yes [id number] 400mg Take 1 Univers (ISENTRESS) 3-28 tablet by ity of 400 mg 00:00: mouth 2 [place] tablet 00 (two) Medical times Branch daily. raltegravir 2021-0 Yes [id number] 400mg Take 1 Univers (ISENTRESS) 3-28 tablet by ity of 400 mg 00:00: mouth 2 [place] tablet 00 (two) Medical times Branch daily. raltegravir 2021-0 Yes [id number] 400mg Take 1 Univers (ISENTRESS) 3-28 tablet by ity of 400 mg 00:00: mouth 2 [place] tablet 00 (two) Medical times Branch daily. raltegravir 2021-0 Yes [id number] 400mg Take 1 Univers (ISENTRESS) 3-28 tablet by ity of 400 mg 00:00: mouth 2 [place] tablet 00 (two) Medical times Branch daily. LORazepam 1 0 2021- No [id number] 1mg Take 1 Univers mg tablet 3-21 [...] times a tablet day. emtricitabi 2021- No [id number] Take one [facility] raman -20 09-12 po daily ity of r alafen 00:00: 00:00 [place] (DESCOVY) 00 :00 Medical tablet Branch metoprolol Yes [id number] Take 1 [facility] tartrate 7-26 tablet Health (Lopressor) 00:00: (100 mg 100 MG 00 total) by tablet mouth 2 (two) times a day AND 0.5 tablets (50 mg total) every night. metoprolol Yes [id number] Take 1 [place] tartrate 7-26 tablet Health (Lopressor) 00:00: (100 mg 100 MG 00 total) by tablet mouth 2 (two) times a day AND 0.5 tablets (50 mg total) every night. raltegravir Yes 400mg Q.5D Take 400 U [facility] (Isentress) 7-23 mg by Health 400 MG 08:03: mouth 2 tablet 05 (two) times a day. amIODarone Yes 200mg QD Take 200 Me [...] area in groin) hydrALAZINE 0 Yes 50mg Q.[id number] Take 50 mg [facility] (APRESOLINE 7-[id number] mouth [facility] ) 50 MG [...] (affected area in groin) hydrALAZINE Yes 50mg Q.[id number] Take 50 mg [facility] (APRESOLINE 7-19 [id number] mouth [facility] ) 50 MG [...] area in groin) hydrALAZINE 0 Yes 50mg Q.[id number] Take 50 mg [facility] (APRESOLINE 7-[id number] mouth [facility] ) 50 MG [...] area in groin) hydrALAZINE 0 Yes 50mg Q.[id number] Take 50 mg [facility] (APRESOLINE 7-[id number] mouth [facility] ) 50 MG [...] (affected area in groin) hydrALAZINE Yes 50mg Q.[id number] Take 50 mg [facility] (APRESOLINE 7-19 [id number] mouth [facility] ) 50 MG [...] area in groin) hydrALAZINE 0 Yes 50mg Q.[id number] Take 50 mg [facility] (APRESOLINE 7-[id number] mouth [facility] [address] ) 50 MG [...] area in groin) hydrALAZINE 0 Yes 50mg Q.[id number] Take 50 mg [facility] (APRESOLINE 7-[id number] mouth [facility] ) 50 MG [...] (affected area in groin) hydrALAZINE Yes 50mg Q.[id number] Take 50 mg [facility] (APRESOLINE 7-[id number] mouth [facility] [address] ) 50 MG [...] area in groin) hydrALAZINE 0 Yes 50mg Q.[id number] Take 50 mg [facility] (APRESOLINE 7-[id number] mouth [facility] ) 50 MG [...] area in groin) hydrALAZINE 2021-0 Yes 50mg Q.[id number] Take 50 mg [facility] (APRESOLINE 7-[id number] mouth [facility] ) 50 MG [...] (affected area in groin) hydrALAZINE Yes 50mg Q.[id number] Take 50 mg [facility] (APRESOLINE 7-19 [id number] mouth [facility] ) 50 MG [...] area in groin) hydrALAZINE 0 Yes 50mg Q.[id number] Take 50 mg [facility] (APRESOLINE 7-[id number] mouth [facility] ) 50 MG [...] area in groin) hydrALAZINE 0 Yes 50mg Q.[id number] Take 50 mg [facility] (APRESOLINE 7-[id number] mouth [facility] [address] ) 50 MG [...] (affected area in groin) hydrALAZINE Yes 50mg Q.[id number] Take 50 mg [facility] (APRESOLINE 7-[id number] mouth [facility] ) 50 MG [...] (affected area in groin) hydrALAZINE Yes 50mg Q.[id number] Take 50 mg [facility] (APRESOLINE 7-19 [id number] [address] mouth [facility] ) 50 MG [...] area in groin) hydrALAZINE 0 Yes 50mg Q.[id number] Take 50 mg [facility] (APRESOLINE 7-[id number] mouth [facility] [address] ) 50 MG [...] area in groin) hydrALAZINE 0 Yes 50mg Q.[id number] Take 50 mg [facility] (APRESOLINE 7-[id number] mouth [facility] ) 50 MG [...] (affected area in groin) hydrALAZINE Yes 50mg Q.[id number] Take 50 mg [facility] (APRESOLINE 7-[id number] mouth [facility] ) 50 MG [...] (affected area in groin) hydrALAZINE Yes 50mg Q.[id number] Take 50 mg [facility] (APRESOLINE 7-19 [id number] mouth [facility] ) 50 MG [...] area in groin) hydrALAZINE 2020-0 Yes 50mg Q.[id number] Take 50 mg [facility] (APRESOLINE 7-[id number] mouth [facility] [address] ) 50 MG [...] (affected area in groin) hydrALAZINE Yes 50mg Q.[id number] Take 50 mg [facility] (APRESOLINE 7-[id number] mouth [address] ) 50 MG [...] area in groin) hydrALAZINE 0 Yes 50mg Q.[id number] Take 50 mg [facility] (APRESOLINE 7-[id number] mouth [address] ) 50 MG [...] area in groin) hydrALAZINE 0 Yes 50mg Q.[id number] Take 50 mg [facility] (APRESOLINE 7-[id number] mouth [address] ) 50 MG [...] (affected area in groin) hydrALAZINE Yes 50mg Q.[id number] Take 50 mg [facility] (APRESOLINE 7-19 [id number] mouth [facility] ) 50 MG [...] (affected area in groin) hydrALAZINE Yes 50mg Q.[id number] Take 50 mg [facility] (APRESOLINE 7-[id number] mouth [address] ) 50 MG [...] area in groin) hydrALAZINE 0 Yes 50mg Q.[id number] Take 50 mg [facility] (APRESOLINE 7-[id number] mouth [address] ) 50 MG [...] (affected area in groin) hydrALAZINE Yes 50mg Q.[id number] Take 50 mg [facility] (APRESOLINE 7-[id number] mouth [facility] [address] ) 50 MG [...] (affected area in groin) hydrALAZINE Yes 50mg Q.[id number] Take 50 mg [facility] (APRESOLINE 7-[id number] mouth [address] ) 50 MG [...] area in groin) hydrALAZINE 0 Yes 50mg Q.[id number] Take 50 mg [facility] (APRESOLINE 7-[id number] mouth [address] ) 50 MG [...] area in groin) hydrALAZINE 0 Yes 50mg Q.[id number] Take 50 mg [facility] (APRESOLINE 7-[id number] mouth [address] ) 50 MG [...] (affected area in groin) hydrALAZINE Yes 50mg Q.[id number] Take 50 mg [facility] (APRESOLINE 7-[id number] mouth [address] ) 50 MG [...] area in groin) hydrALAZINE 0 Yes 50mg Q.[id number] Take 50 mg [facility] (APRESOLINE 7-[id number] mouth [facility] [address] ) 50 MG [...] area in groin) hydrALAZINE 2020-0 Yes 50mg Q.[id number] Take 50 mg [facility] (APRESOLINE 7-[id number] mouth [address] ) 50 MG [...] (affected area in groin) hydrALAZINE Yes 50mg Q.[id number] Take 50 mg [facility] (APRESOLINE 7-[id number] mouth [address] ) 50 MG [...] area in groin) hydrALAZINE 0 Yes 50mg Q.[id number] Take 50 mg [facility] (APRESOLINE 7-[id number] mouth [address] ) 50 MG [...] daily [facility] before l breakfast. nystatin-tr 2021-0 Yes [id number] Apply to [facility] iamcinolone 7-06 area(s) 3 ity of cream 00:00: (three) [place] 00 times Medical daily. Branch nystatin-tr 2021-0 Yes [id number] Apply to [facility] iamcinolone 7-06 area(s) 3 ity of cream 00:00: (three) [place] 00 times Medical daily. Branch nystatin-tr 2021-0 Yes [id number] Apply to [facility] iamcinolone 7-06 area(s) 3 ity of cream 00:00: (three) [place] 00 times Medical daily. Branch nystatin-tr 2021-0 Yes [id number] Apply to [facility] iamcinolone 7-06 area(s) 3 ity of cream 00:00: (three) [place] 00 times Medical daily. Branch nystatin-tr 2021-0 Yes [id number] Apply to [facility] iamcinolone 7-06 area(s) 3 ity of cream 00:00: (three) [place] 00 times Medical daily. Branch nystatin-tr 2021-0 Yes [id number] Apply to [facility] iamcinolone 7-06 area(s) 3 ity of cream 00:00: (three) [place] 00 times Medical daily. Branch nystatin-tr 2021-0 Yes [id number] Apply to [facility] iamcinolone 7-06 area(s) 3 ity of cream 00:00: (three) [place] 00 times Medical daily. Branch nystatin-tr 2021-0 Yes [id number] Apply to [facility] iamcinolone 7-06 area(s) 3 ity of cream 00:00: (three) [place] 00 times Medical daily. Branch nystatin-tr 2021-0 Yes [id number] Apply to [facility] iamcinolone 7-06 area(s) 3 ity of cream 00:00: (three) [place] 00 times Medical daily. Branch nystatin-tr 2021-0 Yes [id number] Apply to [facility] iamcinolone 7-06 area(s) 3 ity of cream 00:00: (three) [place] 00 times Medical daily. Branch nystatin-tr 2021-0 Yes [id number] Apply to [facility] iamcinolone 7-06 area(s) 3 ity of cream 00:00: (three) [place] 00 times Medical daily. Branch nystatin-tr 2021-0 Yes [id number] Apply to [facility] iamcinolone 7-06 area(s) 3 ity of cream 00:00: (three) [place] 00 times Medical daily. Branch nystatin-tr 2021-0 Yes [id number] Apply to [facility] iamcinolone 7-06 area(s) 3 ity of cream 00:00: (three) [place] 00 times Medical daily. Branch nystatin-tr 2021-0 Yes [id number] Apply to [facility] iamcinolone 7-06 area(s) 3 ity of cream 00:00: (three) [place] 00 times Medical daily. Branch nystatin-tr 2021-0 Yes [id number] Apply to [facility] iamcinolone 7-06 area(s) 3 ity of cream 00:00: (three) [place] 00 times Medical daily. Branch nystatin-tr 2021-0 Yes [id number] Apply to [facility] iamcinolone 7-06 area(s) 3 ity of cream 00:00: (three) [place] 00 times Medical daily. Branch nystatin-tr 2021-0 Yes [id number] Apply to [facility] iamcinolone 7-06 area(s) 3 ity of cream 00:00: (three) [place] 00 times Medical daily. Branch nystatin-tr 2021-0 Yes [id number] Apply to [facility] iamcinolone 7-06 area(s) 3 ity of cream 00:00: (three) [place] 00 times Medical daily. Laurie budesonide- 2020-0 2020- No 1{puff} QD Inhale 1 [facility] formoteroL 6-25 06-[address] (SYMBICORT) 14:37: 00:00 morning. H ospita 160-4.5 02 :00 l mcg/actuati on inhaler hydrALAZINE 2020-0 Yes [id number] 50mg [id number] Take 1 [place] (Apresoline 6-11 [id number] tablet (50 Health ) 50 MG 00:00: 3D mg total) tablet 00 by mouth 3 (three) times a day. hydrALAZINE 0 Yes [id number] 50mg [id number] Take 1 [place] (Apresoline 6-11 [id number] tablet (50 Health ) 50 MG 00:00: [...] 00:00: ointment 00 nystatin 2020-0 2021- No [id number] Q.25D Take 5 mL [facility] (MYCOSTATIN 5-17 [...] e 4-10 Tablet l 14:00: should not [place] 00 be chewed or crushed. (Same as: [...] ia 4-10 (Same as: l 14:00: Cordarone) [place] Amlodipine No Notes: Memor ia 4-10 (Same as: l 14:00: Norvasc) [place] emtricitabi No Notes: Caesar lisa ne 200 [...] ia 4-10 (Same as: l 14:00: Zoloft) [place] 00 pantoprazol No Notes: Caesar lisa e 4-10 Tablet l 14:00: should not [place] 00 be chewed or crushed. (Same as: [...] M emoria 4-10 interfere l 02:00: w/enteral [place] 00 feeds - Take 1 hr before or 2 hr after antacids, dairy pdt, meals & minerals - On empty stomach. For patients unable to swallow tablet, dissolve in 10mL - 30mL of water or juice and stir before giving. (Same As: Carafate) Saline No Notes: [facility] Flush 0.9% 4-10 (Same as: l 02:00: BD [place] Posiflush) Eliquis No Notes: Memoria 4-10 Same as: l 02:00: Eliquis [place] 00 Hydralazine No Notes: Caesar lisa Hydrochlori [...] Memoria 4-10 Same as: l 02:00: Eliquis [place] Hydralazine No Notes: Caesar lisa Hydrochlori 4-10 (Same as: l de 50 MG 02:00: Apresoline Her mitchell Oral Tablet 00 ) May interfere w/enteral feedings Take With Food Sucralfate No Notes: May M emoria 4-10 interfere l 02:00: w/enteral [place] 00 feeds - Take 1 hr before [...] M emoria 4-10 interfere l 02:00: w/enteral [place] 00 feeds - Take 1 hr before [...] M emoria 4-10 interfere l 02:00: w/enteral [place] 00 feeds - Take 1 hr before or 2 hr after antacids, dairy pdt, meals & minerals - On empty stomach. For patients unable to swallow tablet, dissolve in 10mL - 30mL of water or juice and stir before giving. (Same As: Carafate) Saline No Notes: [facility] Flush 0.9% 4-10 (Same as: l 02:00: BD [place] Posiflush) Eliquis No Notes: Memoria 4-10 Same as: l 02:00: Eliquis Hydralazine No Notes: Caesar lisa Hydrochlori 4-10 (Same as: l de 50 MG 02:00: Apresoline Her mitchell Oral Tablet 00 ) May interfere w/enteral feedings Take With Food Sucralfate No Notes: May M emoria 4-10 interfere l 02:00: w/enteral [place] 00 feeds - Take 1 hr before [...] not exceed l #3 00:12: 4gm/day of [place] acetaminop hen. (Same as: Tylenol with Codeine [...] not exceed l #3 00:12: 4gm/day of [place] acetaminop hen. (Same as: Tylenol with Codeine # 3) acetaminoph No Notes: Do M emoria en-codeine 4-10 not exceed l #3 00:12: 4gm/day of [place] 00 acetaminop hen. (Same as: Tylenol with [...] l Tablet 22:00: Route: PO, Skylar nn [[facility] 00 Drug form: TAB, BID, Dosing Weight [...] tartrate 4-09 tab, l 22:00: Route: PO, [place] 00 Drug form: TAB, BID, Dosing Weight [...] oria 4-09 tab, l 22:00: Route: PO, [place] Drug form: TAB, BID, Dosing Weight 97.273, [...] oria 4-09 tab, l 22:00: Route: PO, [place] Drug form: TAB, BID, Dosing Weight 97.273, [...] Notes: Memoria 4-09 (Same l 17:07: as:MORPhin [place] 00 e Sulfate) Morphine No Notes: Memoria 4-09 (Same l 17:07: as:MORPhin [place] 00 e Sulfate) Morphine No Notes: Memoria 4-09 (Same l 17:07: as:MORPhin [place] 00 e Sulfate) Morphine No Notes: Memoria 4-09 (Same l 17:07: as:MORPhin [place] 00 e Sulfate) Morphine No Notes: Memoria 4-09 (Same l 17:07: as:MORPhin [place] 00 e Sulfate) Morphine No Notes: Memoria 4-09 (Same l 17:07: as:MORPhin [place] 00 e Sulfate) buPROPion 2021-0 No 150 [...] tab, PO, l oral 15:27: Daily, # [place] enteric 00 30 tab, 0 coated Refill(s), tablet Pharmacy: [facility] 149, 162.56, cm, 08/29/20 5:30:00 CDT, Height, 97.273, kg, 08/29/20 5:30:00 CDT, Weight pantoprazol 1-0 Yes 40 mg = 1 M emoria e 40 mg 4-09 tab, PO, l oral 15:27: Daily, # Marty enteric 00 30 tab, 0 coated Refill(s), tablet Pharmacy: [facility] 149, 162.56, cm, 08/29/20 5:30:00 CDT, Height, 97.273, kg, 08/29/20 5:30:00 CDT, Weight pantoprazol 1-0 Yes 40 mg = 1 M emoria e 40 mg 4-09 tab, PO, l oral 15:27: Daily, # Marty enteric 00 30 tab, 0 coated Refill(s), tablet Pharmacy: [facility] 149, 162.56, cm, 08/29/20 5:30:00 CDT, Height, 97.273, kg, 08/29/20 5:30:00 CDT, Weight pantoprazol 2021-0 Yes 40 mg = 1 M emoria e 40 mg 4-09 tab, PO, l oral 15:27: Daily, # [place] enteric 00 30 tab, 0 coated Refill(s), tablet Pharmacy: [facility] 149, 162.56, cm, 08/29/20 5:30:00 CDT, Height, 97.273, kg, 08/29/20 5:30:00 CDT, Weight pantoprazol 2021-0 Yes 40 mg = 1 M emoria e 40 mg 4-09 tab, PO, l oral 15:27: Daily, # Marty enteric 00 30 tab, 0 coated Refill(s), tablet Pharmacy: [facility] 149, 162.56, cm, 08/29/20 5:30:00 CDT, Height, 97.273, kg, 08/29/20 5:30:00 CDT, Weight pantoprazol 1-0 Yes 40 mg = 1 M emoria e 40 mg 4-09 tab, PO, l oral 15:27: Daily, # Marty enteric 00 30 tab, 0 coated Refill(s), tablet Pharmacy: [facility] 149, 162.56, cm, 08/29/20 5:30:00 CDT, Height, 97.273, kg, 08/29/20 5:30:00 CDT, Weight pantoprazol 2020-0 Yes 40 mg = 1 M emoria e 40 mg 4-09 tab, PO, l oral 15:27: Daily, # [place] enteric 00 30 tab, 0 coated Refill(s), tablet Pharmacy: [facility] 149, 162.56, cm, 08/29/20 5:30:00 CDT, [...] Skylar nn 00 tab, 0 Refill(s), Pharmacy: [facility] 149, 162.56, cm, 08/29/20 5:30:00 CDT, Height, 97.273, kg, 08/29/20 5:30:00 CDT, Weight pantoprazol 1-0 No 40 mg = 1 M emoria e 40 mg 4-09 tab, PO, l oral 15:26: Daily, # [place] enteric 00 30 tab, 0 coated Refill(s) tablet sucralfate 1-0 Yes 1 gm = 1 Mem oria 1 g oral 4-09 tab, PO, l tablet 15:26: Q12H, # 28 Skylar nn 00 tab, 0 Refill(s), Pharmacy: [facility] 149, 162.56, cm, 08/29/20 5:30:00 CDT, [...] Skylar nn 00 tab, 0 Refill(s), Pharmacy: [facility] 149, 162.56, cm, 08/29/20 5:30:00 CDT, [...] Skylar nn 00 tab, 0 Refill(s), Pharmacy: [facility] 149, 162.56, cm, 08/29/20 5:30:00 CDT, Height, 97.273, kg, 08/29/20 5:30:00 CDT, Weight pantoprazol 2020-0 No 40 mg = 1 M emoria e 40 mg 4-09 tab, PO, l oral 15:26: Daily, # [place] enteric 00 30 tab, 0 coated Refill(s) tablet sucralfate 2020-0 Yes 1 gm = 1 Mem oria 1 g oral 4-09 tab, PO, l tablet 15:26: Q12H, # 28 Skylar nn 00 tab, 0 Refill(s), Pharmacy: [facility] 149, 162.56, cm, 08/29/20 5:30:00 CDT, Height, 97.273, kg, 08/29/20 5:30:00 CDT, Weight pantoprazol No 40 mg = 1 M emoria e 40 mg 4-09 tab, PO, l oral 15:26: Daily, # [place] enteric 00 30 tab, 0 coated Refill(s) tablet sucralfate Yes 1 gm = 1 Mem oria 1 g oral 4-09 tab, PO, l tablet 15:26: Q12H, # 28 Skylar nn 00 tab, 0 Refill(s), Pharmacy: [facility] 149, 162.56, cm, 08/29/20 5:30:00 CDT, [...] Skylar nn 00 tab, 0 Refill(s), Pharmacy: [facility] 149, 162.56, cm, 08/29/20 5:30:00 CDT, Height, 97.273, kg, 08/29/20 5:30:00 CDT, Weight Saline No Notes: Memoria Flush 0.9% 4-09 (Same as: l 15:25: BD [place] Posiflush) Lorazepam No Notes: Memori a 4-09 (Same as: l 15:25: Ativan) Marty 00 Saline No Notes: Memoria Flush 0.9% 4-09 (Same as: l 15:25: BD [place] Posiflush) Lorazepam No Notes: Memori a 4-09 (Same as: l 15:25: Ativan) [place] Saline No Notes: Memoria Flush 0.9% 4-09 (Same as: l 15:25: BD [place] Posiflush) Saline No Notes: Memoria Flush 0.9% 4-09 (Same as: l 15:25: BD Marty 00 Posiflush) Lorazepam No Notes: Memori a 4-09 (Same as: l 15:25: Ativan) Marty 00 Lorazepam No Notes: Memori a 4-09 (Same as: l 15:25: Ativan) [place] 00 Saline No Notes: Memoria Flush 0.9% 4-09 (Same as: l 15:25: BD [place] 00 Posiflush) Lorazepam No Notes: Memori a 4-09 (Same as: l 15:25: Ativan) [place] 00 Saline No Notes: Memoria Flush 0.9% 4-09 (Same as: l 15:25: BD Marty 00 Posiflush) Lorazepam No Notes: Memori a 4-09 (Same as: l 15:25: Ativan) [place] 00 Saline No Notes: Memoria Flush 0.9% 4-09 (Same as: l 15:25: BD [place] 00 Posiflush) Lorazepam No Notes: Memori a 4-09 (Same as: l 15:25: Ativan) Isuprel HCl No Route: IV, Memoria (ANES) 0.2 08-29 Drug form: l mg + 15:00: INJ, [place] 00 Dosing Weight 97.3, kg, Start date: 08/29/20 10:00:00 CDT, Stop date: 08/29/20 11:00:00 CDT Isuprel HCl No Route: IV, Memoria (ANES) 0.2 08-29 Drug form: l mg + 15:00: INJ, [place] Dosing Weight 97.3, kg, Start date: 08/29/20 [...] Drug form: l mg + 15:00: INJ, [place] 00 Dosing Weight 97.3, kg, Start date: [...] 2021-0 No Route: IV, Mem oria (ANES) 4-09 Drug form: l 14:29: INJ, ONCE, Stop [...] oria ne 08-29 Route: l 14:01: IVP, [place] 00 Q5Min, Dosing Weight 97.273, kg, PRN [...] Memori a 08-29 Route: l 14:01: IVP, [place] 00 Q2MIN, Dosing Weight 97.273, kg, PRN Narcotic Reversal, Start date: 08/29/20 9:01:00 CDT, Duration: 8 doses or times, Stop date: Limited # of times Ondansetron 1-0 No 4 mg, Memor ia 08-29 Route: l 14:01: IVP, ONCE, [place] 00 Dosing Weight 97.273, kg, PRN Nausea [...] oria ne 08-29 Route: l 14:01: IVP, [place] 00 Q5Min, Dosing Weight 97.273, kg, PRN Pain Score 7-10, Start date: 08/29/20 9:01:00 CDT, Duration: 4 doses or times, Stop date: Limited # of times Flumazenil 2020-0 No 0.2 mg, Caesar lisa 08-29 Route: l 14:01: IVP, PRN, [place] Dosing Weight 97.273, kg, PRN Benzodiaze pine Reversal, Initial dose, Start date: 08/29/20 9:01:00 CDT, Duration: 30 day, Stop date: 09/28/20 9:00:00 CDT Naloxone 1-0 No 0.4 mg, Memori a 08-29 Route: l 14:01: IVP, [place] 00 Q2MIN, Dosing Weight 97.273, kg, PRN Narcotic Reversal, Start date: 08/29/20 9:01:00 CDT, Duration: 8 doses or times, Stop date: Limited # of times Ondansetron 1-0 No 4 mg, Memor ia 08-29 Route: l 14:01: IVP, ONCE, [place] 00 Dosing Weight 97.273, kg, PRN Nausea [...] lisa 08-29 Route: l 14:01: IVP, PRN, [place] 00 Dosing Weight 97.273, kg, PRN Benzodiaze pine Reversal, Initial dose, Start date: 08/29/20 9:01:00 CDT, Duration: 30 day, Stop date: 09/28/20 9:00:00 CDT Naloxone 2021-0 No 0.4 mg, Memori a 08-29 Route: l 14:01: IVP, [place] 00 Q2MIN, Dosing Weight 97.273, kg, PRN [...] 08-29 Route: PO, l 14:01: Drug form: [place] 00 TAB, ONCE, Dosing Weight 97.273, kg, [...] oria ne 08-29 Route: l 14:01: IVP, [place] 00 Q5Min, Dosing Weight 97.273, kg, PRN [...] 08-29 Route: PO, l 14:01: Drug form: [place] 00 TAB, ONCE, Dosing Weight 97.273, kg, [...] oria ne 08-29 Route: l 14:01: IVP, [place] 00 Q5Min, Dosing Weight 97.273, kg, PRN Pain Score 7-10, Start date: 08/29/20 9:01:00 CDT, Duration: 4 doses or times, Stop date: Limited # of times Flumazenil 1-0 No 0.2 mg, Caesar lisa 08-29 Route: l 14:01: IVP, PRN, [place] 00 Dosing Weight 97.273, kg, PRN Benzodiaze pine Reversal, Initial dose, Start date: 08/29/20 9:01:00 CDT, Duration: 30 day, Stop date: 09/28/20 9:00:00 CDT Naloxone 2021-0 No 0.4 mg, Memori a 08-29 Route: l 14:01: IVP, [place] 00 Q2MIN, Dosing Weight 97.273, kg, PRN [...] ia 08-29 Route: l 14:01: IVP, ONCE, [place] 00 Dosing Weight 97.273, kg, PRN Nausea & Vomiting, Start date: 08/29/20 9:01:00 CDT Labetalol 2021-0 No 10 mg, Memori a 08-29 Route: l 14:01: IVP, [place] 00 Q5Min, Dosing Weight 97.273, kg, PRN [...] oria ne 08-29 Route: l 14:01: IVP, [place] 00 Q5Min, Dosing Weight 97.273, kg, PRN [...] ia 08-29 Route: l 14:01: IVP, ONCE, [place] Dosing Weight 97.273, kg, PRN Nausea & Vomiting, Start date: 08/29/20 9:01:00 CDT Labetalol 1-0 No 10 mg, Memori a 08-29 Route: l 14:01: IVP, [place] 00 Q5Min, Dosing Weight 97.273, kg, PRN Elevated BP, Start date: 08/29/20 9:01:00 CDT, Duration: 5 doses or times, Stop date: Limited # of times Acetaminoph 2021-0 No 1,000 mg, M emoria en 08-29 Route: PO, l 14:01: Drug form: [place] 00 TAB, ONCE, Dosing Weight 97.273, kg, [...] oria ne 08-29 Route: l 14:01: IVP, [place] 00 Q5Min, Dosing Weight 97.273, kg, PRN [...] Drug form: l 10 13:15: INJ, Start [place] microgram date: 08/29/20 8:15:00 CDT, Stop date: [...] 4-09 Total l 0.9% IV 12:30: Volume: [place] (ANES) 1000 00 1,000, mL Start date: 08/29/20 7:30:00 CDT, Stop date: 08/29/20 8:30:00 CDT Sodium 2020-0 No Route: IV, Memor ia Chloride 4-09 Total l 0.9% IV 12:30: Volume: [place] (ANES) 1000 00 1,000, mL Start date: [...] 4-09 Total l 0.9% IV 12:30: Volume: [place] (ANES) 1000 00 1,000, mL Start date: [...] PO, l Hydrochlori 11:42: Q24H, # 30 [place] de 150 MG 00 tab, 0 Extended Refill(s) Release Tablet 24 HR 0 Yes 150 mg = 1 Memori a Bupropion 4-09 tab, PO, l Hydrochlori 11:42: Q24H, # 30 [place] de 150 MG 00 tab, 0 Extended Refill(s) Release Tablet 24 HR 0 Yes 150 mg = 1 Memori a Bupropion 4-09 tab, PO, l Hydrochlori 11:42: Q24H, # 30 [place] de 150 MG 00 tab, 0 Extended Refill(s) Release Tablet 24 HR Yes 150 mg = 1 Memori a Bupropion 4-09 tab, PO, l Hydrochlori 11:42: Q24H, # 30 [place] de 150 MG 00 tab, 0 Extended Refill(s) Release Tablet 24 HR Yes 150 mg = 1 Memori a Bupropion 4-09 tab, PO, l Hydrochlori 11:42: Q24H, # 30 [place] de 150 MG 00 tab, 0 Extended Refill(s) Release Tablet 24 HR Yes 150 mg = 1 Memori a Bupropion - tab, PO, l Hydrochlori 11:42: Q24H, # 30 Marty de 150 MG 00 tab, 0 Extended Refill(s) Release Tablet 24 HR Yes 150 mg = 1 Memori a Bupropion - tab, PO, l Hydrochlori 11:42: Q24H, # 30 [place] de 150 MG 00 tab, 0 Extended Refill(s) Release Tablet apixaban 0 Yes 5 mg, PO, Me moria MG Oral 4 Q12H, tab, l Tablet 11:41: 0 Marty [Eliquis] 00 Refill(s), For Atrial Fibrilatio n apixaban 2020-0 Yes 5 mg, PO, Me moria MG Oral - Q12H, tab, l Tablet 11:41: 0 [place] [Eliquis] 00 Refill(s), For Atrial Fibrilatio n apixaban 2020-0 Yes 5 mg, PO, Me moria MG Oral 4- Q12H, tab, l Tablet 11:41: 0 [place] [Eliquis] 00 Refill(s), For Atrial Fibrilatio n apixaban 2020-0 Yes 5 mg, PO, Me moria MG Oral - Q12H, tab, l Tablet 11:41: 0 [place] [Eliquis] 00 Refill(s), For Atrial Fibrilatio n apixaban 5 2020-0 Yes 5 mg, PO, Me moria MG Oral 4-09 Q12H, tab, l Tablet 11:41: 0 [place] [Eliquis] 00 Refill(s), For Atrial Fibrilatio n [...] tab, PO, l tablet 11:38: Daily, # [place] 00 90 tab, 3 Refill(s) AMIODarone 2020-0 [...] tab, PO, l tablet 11:38: Daily, # [place] 00 90 tab, 3 Refill(s) AMIODarone 2020-0 Yes 200 mg = 1 M emoria 200 mg oral 4-09 tab, PO, l tablet 11:38: Daily, # [place] 00 90 tab, 3 Refill(s) normal 2020-0 [...] Health MG tablet 00:00: tablet 00 lisinopril 2019-1 Yes 40mg Take 40 mg U nivers [...] [facility] e Immunization Name Name SARS-COV-2 COVID-19 [...] [place] 65[place] PFIZER COVID-19 2020-07-23 Completed [facility] MRNA VACCINATION 00:00:00 [facility] PFIZER COVID-19 2020-07-23 Completed [facility] MRNA VACCINATION 00:00:00 [facility] PFIZER COVID-19 2020-07-23 Completed [facility] MRNA VACCINATION 00:00:00 [facility] PFIZER COVID-19 2020-07-23 Completed [facility] MRNA VACCINATION 00:00:00 [facility] PFIZER COVID-19 2020-07-23 Completed [facility] MRNA VACCINATION 00:00:00 [facility] PFIZER COVID-19 2020-07-23 Completed [facility] MRNA VACCINATION 00:00:00 [facility] PFIZER COVID-19 2020-07-23 Completed [facility] MRNA VACCINATION 00:00:00 [facility] PFIZER COVID-19 2020-07-23 Completed [facility] MRNA VACCINATION 00:00:00 [facility] PFIZER COVID-19 2020-07-23 Completed [facility] MRNA VACCINATION 00:00:00 [facility] PFIZER COVID-19 2020-07-23 Completed [facility] MRNA VACCINATION 00:00:00 [facility] PFIZER COVID-19 2020-07-23 Completed [facility] MRNA VACCINATION 00:00:00 [facility] PFIZER COVID-19 2020-07-23 Completed [facility] MRNA VACCINATION 00:00:00 [facility] PFIZER COVID-19 2020-07-23 Completed [facility] MRNA VACCINATION 00:00:00 [facility] PFIZER COVID-19 2020-07-23 Completed [facility] MRNA VACCINATION 00:00:00 [facility] PFIZER COVID-19 2020-07-23 Completed [facility] MRNA VACCINATION 00:00:00 [facility] PFIZER COVID-19 2020-07-23 Completed [facility] MRNA VACCINATION 00:00:00 [facility] PFIZER COVID-19 2020-07-23 Completed [facility] MRNA VACCINATION 00:00:00 [facility] PFIZER COVID-19 2020-07-23 Completed [facility] MRNA VACCINATION 00:00:00 [facility] PFIZER COVID-19 2020-07-23 Completed [facility] MRNA VACCINATION 00:00:00 [facility] PFIZER COVID-19 2020-07-23 Completed [facility] MRNA VACCINATION 00:00:00 [facility] PFIZER COVID-19 2020-07-23 Completed [facility] MRNA VACCINATION 00:00:00 [facility] PFIZER COVID-19 2020-07-23 Completed [facility] MRNA VACCINATION 00:00:00 [facility] PFIZER COVID-19 2020-07-23 Completed [facility] MRNA VACCINATION 00:00:00 [facility] PFIZER COVID-19 2020-07-23 Completed [facility] MRNA VACCINATION 00:00:00 [facility] PFIZER COVID-19 2020-07-23 Completed [facility] MRNA VACCINATION 00:00:00 [facility] PFIZER COVID-19 2020-07-23 Completed [facility] MRNA VACCINATION 00:00:00 [facility] PFIZER COVID-19 2020-07-23 Completed [facility] MRNA VACCINATION 00:00:00 [facility] PFIZER COVID-19 2020-07-23 Completed [facility] MRNA VACCINATION 00:00:00 [facility] PFIZER COVID-19 2020-07-23 Completed [facility] MRNA VACCINATION 00:00:00 [facility] PFIZER COVID-19 2020-07-23 Completed [facility] MRNA VACCINATION 00:00:00 [facility] PFIZER COVID-19 2020-07-23 Completed [facility] MRNA VACCINATION 00:00:00 [facility] PFIZER COVID-19 2020-07-23 Completed [facility] MRNA VACCINATION 00:00:00 [facility] PFIZER COVID-19 2020-07-23 Completed [facility] MRNA VACCINATION 00:00:00 [facility] PFIZER COVID-19 2020-07-23 Completed [facility] MRNA VACCINATION 00:00:00 [facility] SARS-COV-2 COVID-19 2020-07-23 Completed [facility] of PFIZER VACCINE 00:00:00 [facility] SARS-COV-2 COVID-19 2020-07-23 Completed Unive rsity of PFIZER VACCINE 00:00:00 [facility] SARS-COV-2 COVID-19 2020-07-23 Completed Unive rsity of PFIZER VACCINE 00:00:00 [facility] SARS-COV-2 COVID-19 2020-07-23 Completed Unive rsity of PFIZER VACCINE 00:00:00 [facility] SARS-COV-2 COVID-19 2020-07-23 Completed Unive rsity of PFIZER VACCINE 00:00:00 [facility] SARS-COV-2 COVID-19 2020-07-23 Completed Unive rsity of PFIZER VACCINE 00:00:00 [facility] SARS-COV-2 COVID-19 2020-07-23 Completed Unive rsity of PFIZER VACCINE 00:00:00 [facility] SARS-COV-2 COVID-19 2020-07-23 Completed Unive rsity of PFIZER VACCINE 00:00:00 [facility] SARS-COV-2 COVID-19 2020-07-23 Completed Unive rsity of PFIZER VACCINE 00:00:00 [facility] SARS-COV-2 COVID-19 2020-07-23 Completed Unive rsity of PFIZER VACCINE 00:00:00 [facility] SARS-COV-2 COVID-19 2020-07-23 Completed Unive rsity of PFIZER VACCINE 00:00:00 [facility] SARS-COV-2 COVID-19 2020-07-23 Completed Unive rsity of PFIZER VACCINE 00:00:00 [facility] SARS-COV-2 COVID-19 2020-07-23 Completed Unive rsity of PFIZER VACCINE 00:00:00 [facility] SARS-COV-2 COVID-19 2020-07-23 Completed Unive rsity of PFIZER VACCINE 00:00:00 [facility] PFIZER COVID-19 2020-07-23 Completed [facility] MRNA VACCINATION 00:00:00 [facility] PFIZER COVID-19 2020-07-02 Completed [facility] MRNA VACCINATION 00:00:00 [facility] PFIZER COVID-19 2020-07-02 Completed [facility] MRNA VACCINATION 00:00:00 [facility] PFIZER COVID-19 2020-07-02 Completed [facility] MRNA VACCINATION 00:00:00 [facility] PFIZER COVID-19 2020-07-02 Completed [facility] MRNA VACCINATION 00:00:00 [facility] PFIZER COVID-19 2020-07-02 Completed [facility] MRNA VACCINATION 00:00:00 Hospital PFIZER COVID-19 2020-07-02 Completed [facility] MRNA VACCINATION 00:00:00 [facility] PFIZER COVID-19 2020-07-02 Completed [facility] MRNA VACCINATION 00:00:00 [facility] PFIZER COVID-19 2020-07-02 Completed [facility] MRNA VACCINATION 00:00:00 [facility] PFIZER COVID-19 2020-07-02 Completed [facility] MRNA VACCINATION 00:00:00 [facility] PFIZER COVID-19 2020-07-02 Completed [facility] MRNA VACCINATION 00:00:00 [facility] PFIZER COVID-19 2020-07-02 Completed [facility] MRNA VACCINATION 00:00:00 [facility] PFIZER COVID-19 2020-07-02 Completed [facility] MRNA VACCINATION 00:00:00 [facility] PFIZER COVID-19 2020-07-02 Completed [facility] MRNA VACCINATION 00:00:00 [facility] PFIZER COVID-19 2020-07-02 Completed [facility] MRNA VACCINATION 00:00:00 [facility] PFIZER COVID-19 2020-07-02 Completed [facility] MRNA VACCINATION 00:00:00 [facility] PFIZER COVID-19 2020-07-02 Completed [facility] MRNA VACCINATION 00:00:00 [facility] PFIZER COVID-19 2020-07-02 Completed [facility] MRNA VACCINATION 00:00:00 [facility] PFIZER COVID-19 2020-07-02 Completed [facility] MRNA VACCINATION 00:00:00 [facility] PFIZER COVID-19 2020-07-02 Completed [facility] MRNA VACCINATION 00:00:00 [facility] PFIZER COVID-19 2020-07-02 Completed [facility] MRNA VACCINATION 00:00:00 [facility] PFIZER COVID-19 2020-07-02 Completed [facility] VACCINATION 00:00:00 [facility] PFIZER COVID-19 2020-07-02 Completed [facility] VACCINATION 00:00:00 [facility] PFIZER COVID-19 2020-07-02 Completed [facility] VACCINATION 00:00:00 [facility] PFIZER COVID-19 2020-07-02 Completed [facility] VACCINATION 00:00:00 [facility] PFIZER COVID-19 2020-07-02 Completed [facility] VACCINATION 00:00:00 [facility] PFIZER COVID-19 2020-07-02 Completed [facility] VACCINATION 00:00:00 [facility] PFIZER COVID-19 2020-07-02 Completed [facility] VACCINATION 00:00:00 [facility] PFIZER COVID-19 2020-07-02 Completed [facility] VACCINATION 00:00:00 [facility] PFIZER COVID-19 2020-07-02 Completed [facility] VACCINATION 00:00:00 [facility] PFIZER COVID-19 2020-07-02 Completed [facility] VACCINATION 00:00:00 [facility] PFIZER COVID-19 2020-07-02 Completed [facility] VACCINATION 00:00:00 [facility] PFIZER COVID-19 2020-07-02 Completed [facility] VACCINATION 00:00:00 [facility] PFIZER COVID-19 2020-07-02 Completed [facility] VACCINATION 00:00:00 [facility] PFIZER COVID-19 2020-07-02 Completed [facility] VACCINATION 00:00:00 [facility] SARS-COV-2 COVID-19 2020-07-02 Completed [facility] PFI[facility]ER VACCINE 00:00:00 [facility] SARS-COV-2 COVID-19 2020-07-02 Completed [facility] PFIZER VACCINE 00:00:00 [facility] SARS-COV-2 COVID-19 2020-07-02 Completed [facility] rsity of PFIZER VACCINE 00:00:00 [facility] SARS-COV-2 COVID-19 2020-07-02 Completed Unive rsity of PFIZER VACCINE 00:00:00 [facility] SARS-COV-2 COVID-19 2020-07-02 Completed Unive [facility]ity of PFIZER VACCINE 00:00:00 [facility] SARS-COV-2 COVID-19 2020-07-02 Completed Unive rsity of PFIZER VACCINE 00:00:00 [facility] SARS-COV-2 COVID-19 2020-07-02 Completed Unive [facility]ity of PFIZER VACCINE 00:00:00 [facility] SARS-COV-2 COVID-19 2020-07-02 Completed Unive rsity of PFIZER VACCINE 00:00:00 [facility] SARS-COV-2 COVID-19 2020-07-02 Completed Unive rsity of PFIZER VACCINE 00:00:00 [facility] SARS-COV-2 COVID-19 2020-07-02 Completed [facility]ive rsity of PFIZER VACCINE 00:00:00 [facility] SARS-COV-2 COVID-19 2020-07-02 Completed Unive [facility] of PFIZER VACCINE 00:00:00 [facility] SARS-COV-2 COVID-19 2020-07-02 Completed Unive [facility]ity of PFIZER VACCINE 00:00:00 [facility] SARS-COV-2 COVID-19 2020-07-02 Completed Unive [facility]ity of PFIZER VACCINE 00:00:00 [facility] SARS-COV-2 COVID-19 2020-07-02 Completed Unive [facility]ity of PFIZER VACCINE 00:00:00 [facility] PFIZER COVID-19 2020-07-02 Completed [facility] MRNA VACCINATION 00:00:00 [facility] Influenza Virus 2017-03-08 Completed Universit [facility] of Vaccine 00:00:00 [facility] Influenza Virus 2017-03-08 Completed [facility] of Vaccine 00:00:00 [facility] Influenza Virus 2017-03-08 Completed [facility] of Vaccine 00:00:00 [facility] Influenza Virus 2017-03-08 Completed [facility] y of Vaccine 00:00:00 [facility] Influenza Virus 2017-03-08 Completed [facility] y of Vaccine 00:00:00 [facility] Influenza Virus 2017-03-08 Completed [facility] y of Vaccine 00:00:00 [facility] Influenza Virus 2017-03-08 Completed [facility] y of Vaccine 00:00:00 [facility] Influenza Virus 2017-03-08 Completed [facility] y of Vaccine 00:00:00 [facility] Influenza Virus 2017-03-08 Completed [facility] y of Vaccine 00:00:00 [facility] Influenza Virus 2017-03-08 Completed [facility] y of Vaccine 00:00:00 [facility] Influenza Virus 2017-03-08 Completed [facility] y of Vaccine 00:00:00 [facility] Influenza Virus 2017-03-08 Completed [facility] y of Vaccine 00:00:00 [facility] Influenza Virus 2017-03-08 Completed [facility] y of Vaccine 00:00:00 [facility] Influenza Virus 2017-03-08 Completed [facility] y of Vaccine 00:00:00 [facility] Influenza Virus 2017-03-08 Completed [facility] of Vaccine 00:00:00 [facility] Influenza Virus 2017-03-08 Completed [facility] of Vaccine 00:00:00 [facility] Influenza Virus 2017-03-08 Completed [facility] y of Vaccine 00:00:00 [facility] Influenza Virus 2017-03-08 Completed [facility] y of Vaccine 00:00:00 [facility] Influenza Virus 2014-01-30 Completed [facility]it y of Vaccine (3+ yrs) 00:00:00 [facility] Pneumococcal 13 2014-01-30 Completed Universit y of Conjugate, PCV13 00:00:00 [facility] (Prevnar 13) [place] Influenza Virus 2014-01-30 Completed Universit y of [...] Completed Universit y of Conjugate, PCV13 00:00:00 [facility] dical (Prevnar 13) Branch [...] Completed Universit y of Conjugate, PCV13 00:00:00 [facility] dical (Prevnar 13) Branch Influenza Virus 2014-01-30 Completed Universit y of Vaccine (3+ yrs) 00:00:00 [facility] dical Branch Pneumococcal 13 2014-01-30 Completed Universit y of Conjugate, PCV13 00:00:00 [facility] dical (Prevnar 13) Branch Influenza Virus 2014-01-30 Completed [facility]it y of Vaccine (3+ yrs) 00:00:00 [facility] Pneumococcal 13 2014-01-30 Completed [facility]it y of Conjugate, PCV13 00:00:00 [facility] dical (Prevnar 13) Branch Influenza Virus 2014-01-30 Completed [facility]it y of Vaccine (3+ yrs) 00:00:00 [facility] dical Branch Pneumococcal 13 2014-01-30 Completed [facility]it y of Conjugate, PCV13 00:00:00 [place] [facility] (Prevnar 13) [facility] Influenza Virus 2014-01-30 Completed [facility]it y of Vaccine (3+ yrs) 00:00:00 [facility] dical Branch Pneumococcal 13 2014-01-30 Completed Universit y of Conjugate, PCV13 00:00:00 [facility] dical (Prevnar 13) Branch Influenza Virus 2014-01-30 Completed [facility]it y of Vaccine (3+ yrs) 00:00:00 [facility] dical Branch Pneumococcal 13 2014-01-30 Completed Universit y of Conjugate, PCV13 00:00:00 [facility] dical (Prevnar 13) Branch Pneumococcal 2012-02-16 Completed University o f Polysaccharide, 00:00:00 [facility] PPSV23 (PNEUMOVAX) Branch Influenza Virus 2012-02-16 Completed Universit y of Vaccine 00:00:00 [facility] PPD (TB) 2012-02-16 Completed University of 00:00:00 [facility] Pneumococcal 2012-02-16 Completed [facility] o f Polysaccharide, 00:00:00 [place] [facility] PPSV23 (PNEUMOVAX) Branch Influenza Virus 2012-02-16 Completed [facility] y of Vaccine 00:00:00 [facility] PPD (TB) 2012-02-16 Completed [facility] of 00:00:00 [facility] Pneumococcal 2012-02-16 Completed [facility] o f Polysaccharide, 00:00:00 [place] [facility] PPSV23 (PNEUMOVAX) [facility] Influenza Virus 2012-02-16 Completed [facility] of Vaccine 00:00:00 [facility] PPD (TB) 2012-02-16 Completed [facility] of 00:00:00 [facility] Pneumococcal 2012-02-16 Completed [facility] o f Polysaccharide, 00:00:00 [place] [facility] PPSV23 (PNEUMOVAX) Branch Influenza Virus 2012-02-16 Completed [facility] y of Vaccine 00:00:00 [facility] PPD (TB) 2012-02-16 Completed [facility] of 00:00:00 [facility] Pneumococcal 2012-02-16 Completed [facility] o f Polysaccharide, 00:00:00 [place] [facility] PPSV23 (PNEUMOVAX) Branch Influenza Virus 2012-02-16 Completed [facility] y of Vaccine 00:00:00 [facility] PPD (TB) 2012-02-16 Completed [facility] of 00:00:00 [facility] Pneumococcal 2012-02-16 Completed [facility] o f Polysaccharide, 00:00:00 [place] [facility] PPSV23 (PNEUMOVAX) Branch Influenza Virus 2012-02-16 Completed [facility] of Vaccine 00:00:00 [facility] PPD (TB) 2012-02-16 Completed [facility] of 00:00:00 [facility] Pneumococcal 2012-02-16 Completed [facility] o f Polysaccharide, 00:00:00 [place] [facility] PPSV23 (PNEUMOVAX) Branch Influenza Virus 2012-02-16 Completed [facility] of Vaccine 00:00:00 [facility] PPD (TB) 2012-02-16 Completed [facility] of 00:00:00 [facility] Pneumococcal 2012-02-16 Completed [facility] o f Polysaccharide, 00:00:00 [place] [facility] PPSV23 (PNEUMOVAX) Branch Influenza Virus 2012-02-16 Completed [facility] of Vaccine 00:00:00 [facility] PPD (TB) 2012-02-16 Completed [facility] of 00:00:00 [facility] Pneumococcal 2012-02-16 Completed [facility] o f Polysaccharide, 00:00:00 [place] [facility] PPSV23 (PNEUMOVAX) Branch Influenza Virus 2012-02-16 Completed [facility] of Vaccine 00:00:00 [facility] PPD (TB) 2012-02-16 Completed [facility] of 00:00:00 [facility] Pneumococcal 2012-02-16 Completed [facility] o f Polysaccharide, 00:00:00 [place] [facility] PPSV23 (PNEUMOVAX) Branch Influenza Virus 2012-02-16 Completed [facility] of Vaccine 00:00:00 [facility] PPD (TB) 2012-02-16 Completed [facility] of 00:00:00 [facility] Pneumococcal 2012-02-16 Completed [facility] o f Polysaccharide, 00:00:00 [place] [facility] PPSV23 (PNEUMOVAX) Branch Influenza Virus 2012-02-16 Completed [facility] of Vaccine 00:00:00 [facility] PPD (TB) 2012-02-16 Completed [facility] of 00:00:00 [facility] Pneumococcal 2012-02-16 Completed [facility] o f Polysaccharide, 00:00:00 [place] [facility] PPSV23 (PNEUMOVAX) Branch Influenza Virus 2012-02-16 Completed [facility] of Vaccine 00:00:00 [facility] PPD (TB) 2012-02-16 Completed [facility] of 00:00:00 [facility] Pneumococcal 2012-02-16 Completed [facility] o f Polysaccharide, 00:00:00 [place] [facility] PPSV23 (PNEUMOVAX) Branch Influenza Virus 2012-02-16 Completed [facility] of Vaccine 00:00:00 [facility] PPD (TB) 2012-02-16 Completed [facility] of 00:00:00 [facility] Pneumococcal 2012-02-16 Completed [facility] o f Polysaccharide, 00:00:00 [place] [facility] PPSV23 (PNEUMOVAX) Branch Influenza Virus 2012-02-16 Completed [facility] y of Vaccine 00:00:00 [facility] PPD (TB) 2012-02-16 Completed [facility] of 00:00:00 [facility] Pneumococcal 2012-02-16 Completed [facility] o f Polysaccharide, 00:00:00 [place] [facility] PPSV23 (PNEUMOVAX) Branch Influenza Virus 2012-02-16 Completed [facility] y of Vaccine 00:00:00 [facility] PPD (TB) 2012-02-16 Completed [facility] of 00:00:00 [facility] Pneumococcal 2012-02-16 Completed [facility] o f Polysaccharide, 00:00:00 [place] [facility] PPSV23 (PNEUMOVAX) Branch Influenza Virus 2012-02-16 Completed [facility] of Vaccine 00:00:00 [facility] PPD (TB) 2012-02-16 Completed [facility] of 00:00:00 [facility] Pneumococcal 2012-02-16 Completed [facility] o f Polysaccharide, 00:00:00 [place] [facility] PPSV23 (PNEUMOVAX) Branch Influenza Virus 2012-02-16 Completed [facility] of Vaccine 00:00:00 [facility] PPD (TB) 2012-02-16 Completed [facility] of 00:00:00 [facility] Pneumococcal 2012-02-16 Completed [facility] o f Polysaccharide, 00:00:00 [place] [facility] PPSV23 (PNEUMOVAX) Branch Influenza Virus 2012-02-16 Completed [facility] of Vaccine 00:00:00 [facility] PPD (TB) 2012-02-16 Completed [facility] of 00:00:00 [facility] Hep B, Adol or Pedi 2011-09-01 Completed Unive rsity of Dosage 00:00:00 [facility] Hep B, Adol or Pedi 2011-09-01 Completed Unive rsity of Dosage 00:00:00 [facility] Hep B, Adol or Pedi 2011-09-01 Completed Unive rsity of Dosage 00:00:00 [facility] Hep B, Adol or Pedi 2011-09-01 Completed Unive rsity of Dosage 00:00:00 [facility] Hep B, Adol or Pedi 2011-09-01 Completed Unive rsity of Dosage 00:00:00 [facility] Hep B, Adol or Pedi 2011-09-01 Completed Unive rsity of Dosage 00:00:00 [facility] Hep B, Adol or Pedi 2011-09-01 Completed Unive rsity of Dosage 00:00:00 [facility] Hep B, Adol or Pedi 2011-09-01 Completed Unive rsity of Dosage 00:00:00 [facility] Hep B, Adol or Pedi [...] 2011-09-01 Completed Unive [facility] of Dosage 00:00:00 [facility] Hep B, Adol or Pedi 2011-03-17 Completed Unive [facility] of Dosage 00:00:00 [facility] Hep B, Adol or Pedi 2011-03-17 Completed Unive rsity of Dosage 00:00:00 [facility] Hep B, Adol or Pedi [...] 2011-03-17 Completed Unive rsity of Dosage 00:00:00 [facility] Hep B, Adol or Pedi 2011-03-17 Completed Unive rsity of Dosage 00:00:00 [facility] Hep B, Adol or Pedi 2011-03-17 Completed Unive rsity of Dosage 00:00:00 [facility] Hep B, Adol or Pedi 2011-03-17 Completed Unive rsity of Dosage 00:00:00 [facility] Hep B, Adol or Pedi 2011-03-17 Completed Unive rsity of Dosage 00:00:00 [facility] Hep B, Adol or Pedi 2011-03-17 Completed Unive rsity of Dosage 00:00:00 [facility] Hep B, Adol or Pedi 2011-03-17 Completed Unive rsity of Dosage 00:00:00 [facility] Hep B, Adol or Pedi 2011-03-17 Completed Unive rsity of Dosage 00:00:00 [facility] Hep B, Adol or Pedi 2011-03-17 Completed Unive rsity of Dosage 00:00:00 [facility] Hep B, Adol or Pedi 2011-03-17 Completed Unive rsity of Dosage 00:00:00 [facility] Hep B, Adol or Pedi 2011-03-17 Completed Unive rsity of Dosage 00:00:00 [facility] Influenza Virus 2011-02-10 Completed Universit y of Vaccine 00:00:00 [facility] Hep B, Adol or Pedi 2011-02-10 Completed Unive rsity of Dosage 00:00:00 [facility] Influenza Virus 2011-02-10 Completed [facility] of Vaccine 00:00:00 [facility] Hep B, Adol or Pedi 2011-02-10 Completed Unive rsity of Dosage 00:00:00 [facility] Influenza Virus 2011-02-10 Completed [facility] of Vaccine 00:00:00 [facility] Hep B, Adol or Pedi 2011-02-10 Completed Unive rsity of Dosage 00:00:00 [facility] Influenza Virus 2011-02-10 Completed [facility] y of Vaccine 00:00:00 [facility] Hep B, Adol or Pedi 2011-02-10 Completed Unive rsity of Dosage 00:00:00 [facility] Influenza Virus 2011-02-10 Completed [facility] y of Vaccine 00:00:00 [facility] Hep B, Adol or Pedi 2011-02-10 Completed Unive [facility]ity of Dosage 00:00:00 [facility] Influenza Virus 2011-02-10 Completed [facility] of Vaccine 00:00:00 [facility] Hep B, Adol or Pedi 2011-02-10 Completed Unive rsity of Dosage 00:00:00 [facility] Influenza Virus 2011-02-10 Completed [facility] of Vaccine 00:00:00 [facility] Hep B, Adol or Pedi 2011-02-10 Completed Unive rsity of Dosage 00:00:00 [facility] Influenza Virus 2011-02-10 Completed [facility] y of Vaccine 00:00:00 [facility] Hep B, Adol or Pedi 2011-02-10 Completed Unive rsity of Dosage 00:00:00 [facility] Influenza Virus 2011-02-10 Completed [facility] y of Vaccine 00:00:00 [facility] Hep B, Adol or Pedi 2011-02-10 Completed Unive rsity of Dosage 00:00:00 [facility] Influenza Virus 2011-02-10 Completed [facility] of Vaccine 00:00:00 [facility] Hep B, Adol or Pedi 2011-02-10 Completed Unive rsity of Dosage 00:00:00 [facility] Influenza Virus 2011-02-10 Completed [facility] y of Vaccine 00:00:00 [facility] Hep B, Adol or Pedi 2011-02-10 Completed Unive rsity of Dosage 00:00:00 [facility] Influenza Virus 2011-02-10 Completed [facility] of Vaccine 00:00:00 [facility] Hep B, Adol or Pedi 2011-02-10 Completed Unive rsity of Dosage 00:00:00 [facility] Influenza Virus 2011-02-10 Completed [facility] of Vaccine 00:00:00 [facility] Hep B, Adol or Pedi 2011-02-10 Completed Unive rsity of Dosage 00:00:00 [facility] Influenza Virus 2011-02-10 Completed [facility] of Vaccine 00:00:00 [facility] Hep B, Adol or Pedi 2011-02-10 Completed Unive rsity of Dosage 00:00:00 [facility] Influenza Virus 2011-02-10 Completed [facility] y of Vaccine 00:00:00 [facility] Hep B, Adol or Pedi 2011-02-10 Completed Unive rsity of Dosage 00:00:00 [facility] Influenza Virus 2011-02-10 Completed [facility] y of Vaccine 00:00:00 [facility] Hep B, Adol or Pedi 2011-02-10 Completed Unive rsity of Dosage 00:00:00 [facility] Influenza Virus 2011-02-10 Completed [facility] y of Vaccine 00:00:00 [facility] Hep B, Adol or Pedi 2011-02-10 Completed Unive rsity of Dosage 00:00:00 [facility] Influenza Virus 2011-02-10 Completed [facility] of Vaccine 00:00:00 [facility] Hep B, Adol or Pedi 2011-02-10 Completed [facility]ive rsity of Dosage 00:00:00 [facility] PPD (TB) 2010-11-18 Completed [facility] of 00:00:00 [facility] TDAP (ADACEL) 2010-11-18 Completed University of VACCINE 00:00:00 [facility] PPD (TB) 2010-11-18 Completed [facility] of 00:00:00 [facility] TDAP (ADACEL) 2010-11-18 Completed University of VACCINE 00:00:00 [facility] PPD (TB) 2010-11-18 Completed [facility] of 00:00:00 [facility] TDAP (ADACEL) 2010-11-18 Completed University of VACCINE 00:00:00 [facility] PPD (TB) 2010-11-18 Completed [facility] of 00:00:00 [facility] TDAP (ADACEL) 2010-11-18 Completed University of VACCINE 00:00:00 [facility] PPD (TB) 2010-11-18 Completed [facility] of 00:00:00 [facility] TDAP (ADACEL) 2010-11-18 Completed University of VACCINE 00:00:00 [facility] PPD (TB) 2010-11-18 Completed [facility] of 00:00:00 [facility] TDAP (ADACEL) 2010-11-18 Completed University of VACCINE 00:00:00 [facility] PPD (TB) 2010-11-18 Completed [facility] of 00:00:00 [facility] TDAP (ADACEL) 2010-11-18 Completed University of VACCINE 00:00:00 [facility] PPD (TB) 2010-11-18 Completed [facility] of 00:00:00 [facility] TDAP (ADACEL) 2010-11-18 Completed University of VACCINE 00:00:00 [facility] PPD (TB) 2010-11-18 Completed [facility] of 00:00:00 [facility] TDAP (ADACEL) 2010-11-18 Completed [facility] of VACCINE 00:00:00 [facility] PPD (TB) 2010-11-18 Completed [facility] 00:00:00 [facility] TDAP (ADACEL) 2010-11-18 Completed University of VACCINE 00:00:00 [facility] PPD (TB) 2010-11-18 Completed [facility] of 00:00:00 [facility] TDAP (ADACEL) 2010-11-18 Completed University of VACCINE 00:00:00 [facility] PPD (TB) 2010-11-18 Completed [facility] of 00:00:00 [facility] TDAP (ADACEL) 2010-11-18 Completed [facility] of VACCINE 00:00:00 [facility] PPD (TB) 2010-11-18 Completed [facility] of 00:00:00 [facility] TDAP (ADACEL) 2010-11-18 Completed [facility] of VACCINE 00:00:00 [facility] PPD (TB) 2010-11-18 Completed [facility] of 00:00:00 [facility] TDAP (ADACEL) 2010-11-18 Completed [facility] of VACCINE 00:00:00 [facility] PPD (TB) 2010-11-18 Completed [facility] of 00:00:00 [facility] TDAP (ADACEL) 2010-11-18 Completed [facility] of VACCINE 00:00:00 [facility] PPD (TB) 2010-11-18 Completed [facility] of 00:00:00 [facility] TDAP (ADACEL) 2010-11-18 Completed [facility] of VACCINE 00:00:00 [facility] PPD (TB) 2010-11-18 Completed [facility] of 00:00:00 [facility] TDAP (ADACEL) 2010-11-18 Completed [facility] of VACCINE 00:00:00 [facility] PPD (TB) 2010-11-18 Completed [facility] of 00:00:00 [facility] TDAP (ADACEL) 2010-11-18 Completed [facility] of VACCINE 00:00:00 [facility] HEPATITIS A 2004-03-02 Completed [facility] of 00:00:00 [facility] HEPATITIS A 2004-03-02 Completed [facility] of 00:00:00 [facility] HEPATITIS A 2004-03-02 Completed [facility] of 00:00:00 [facility] HEPATITIS A 2004-03-02 Completed [facility] of 00:00:00 [facility] HEPATITIS A 2004-03-02 Completed [facility] of 00:00:00 [facility] HEPATITIS A 2004-03-02 Completed [facility] of 00:00:00 [facility] HEPATITIS A 2004-03-02 Completed [facility] 00:00:00 [facility] HEPATITIS A 2004-03-02 Completed [facility] 00:00:00 [facility] HEPATITIS A 2004-03-02 Completed [facility] of 00:00:00 [facility] HEPATITIS A 2004-03-02 Completed [facility] 00:00:00 [facility] HEPATITIS A 2004-03-02 Completed [facility] 00:00:00 [facility] HEPATITIS A 2004-03-02 Completed [facility] of 00:00:00 [facility] HEPATITIS A 2004-03-02 Completed [facility] of 00:00:00 [facility] HEPATITIS A 2004-03-02 Completed [facility] 00:00:00 [facility] HEPATITIS A 2004-03-02 Completed [facility] of 00:00:00 [facility] HEPATITIS A 2004-03-02 Completed University of 00:00:00 [facility] HEPATITIS A 2004-03-02 Completed University of 00:00:00 [facility] HEPATITIS A 2004-03-02 Completed University of 00:00:00 [facility] HEPATITIS A 2003-08-01 Completed University of 00:00:00 [facility] HEPATITIS A 2003-08-01 Completed [facility] of 00:00:00 [facility] HEPATITIS A 2003-08-01 Completed [facility] 00:00:00 [facility] HEPATITIS A 2003-08-01 Completed [facility] 00:00:00 [facility] HEPATITIS A 2003-08-01 Completed [facility] of 00:00:00 [facility] HEPATITIS A 2003-08-01 Completed [facility] of 00:00:00 [facility] HEPATITIS A 2003-08-01 Completed [facility] of 00:00:00 [facility] HEPATITIS A 2003-08-01 Completed [facility] of 00:00:00 [facility] HEPATITIS A 2003-08-01 Completed [facility] 00:00:00 [facility] HEPATITIS A 2003-08-01 Completed [facility] 00:00:00 [facility] HEPATITIS A 2003-08-01 Completed [facility] of 00:00:00 [facility] HEPATITIS A 2003-08-01 Completed [facility] of 00:00:00 [facility] HEPATITIS A 2003-08-01 Completed [facility] 00:00:00 [facility] HEPATITIS A 2003-08-01 Completed [facility] 00:00:00 [facility] HEPATITIS A 2003-08-01 Completed [facility] of 00:00:00 [facility] HEPATITIS A 2003-08-01 Completed University of 00:00:00 [facility] HEPATITIS A 2003-08-01 Completed University of 00:00:00 [facility] HEPATITIS A 2003-08-01 Completed [facility] of 00:00:00 [facility] Pneumococcal 2001-10-04 Completed University o f Polysaccharide, 00:00:00 [place] [facility] PPSV23 (PNEUMOVAX) Branch PPD (TB) 2001-10-04 Completed [facility] of 00:00:00 [facility] Pneumococcal 2001-10-04 Completed University o f Polysaccharide, 00:00:00 [place] [facility] PPSV23 (PNEUMOVAX) Branch PPD (TB) 2001-10-04 Completed [facility] of 00:00:00 [facility] Pneumococcal 2001-10-04 Completed University o f Polysaccharide, 00:00:00 [place] [facility] PPSV23 (PNEUMOVAX) Branch PPD (TB) 2001-10-04 Completed [facility] of 00:00:00 [facility] Pneumococcal 2001-10-04 Completed University o f Polysaccharide, 00:00:00 [place] [facility] PPSV23 (PNEUMOVAX) Branch PPD (TB) 2001-10-04 Completed [facility] of 00:00:00 [facility] Pneumococcal 2001-10-04 Completed University o f Polysaccharide, 00:00:00 [place] [facility] PPSV23 (PNEUMOVAX) Branch PPD (TB) 2001-10-04 Completed [facility] of 00:00:00 [facility] Pneumococcal 2001-10-04 Completed University o f Polysaccharide, 00:00:00 [place] [facility] PPSV23 (PNEUMOVAX) Branch PPD (TB) 2001-10-04 Completed [facility] of 00:00:00 [facility] Pneumococcal 2001-10-04 Completed University o f Polysaccharide, 00:00:00 [place] [facility] PPSV23 (PNEUMOVAX) Branch PPD (TB) 2001-10-04 Completed [facility] of 00:00:00 [facility] Pneumococcal 2001-10-04 Completed University o f Polysaccharide, 00:00:00 [place] [facility] PPSV23 (PNEUMOVAX) Branch PPD (TB) 2001-10-04 Completed [facility] of 00:00:00 [facility] Pneumococcal 2001-10-04 Completed University o f Polysaccharide, 00:00:00 [place] [facility] PPSV23 (PNEUMOVAX) Branch PPD (TB) 2001-10-04 Completed [facility] of 00:00:00 [facility] Pneumococcal 2001-10-04 Completed University o f Polysaccharide, 00:00:00 [place] [facility] PPSV23 (PNEUMOVAX) Branch PPD (TB) 2001-10-04 Completed [facility] of 00:00:00 [facility] Pneumococcal 2001-10-04 Completed University o f Polysaccharide, 00:00:00 [place] [facility] PPSV23 (PNEUMOVAX) Branch PPD (TB) 2001-10-04 Completed [facility] of 00:00:00 [facility] Pneumococcal 2001-10-04 Completed University o f Polysaccharide, 00:00:00 [place] [facility] PPSV23 (PNEUMOVAX) Branch PPD (TB) 2001-10-04 Completed [facility] of 00:00:00 [facility] Pneumococcal 2001-10-04 Completed University o f Polysaccharide, 00:00:00 [place] [facility] PPSV23 (PNEUMOVAX) Branch PPD (TB) 2001-10-04 Completed [facility] of 00:00:00 [facility] Pneumococcal 2001-10-04 Completed University o f Polysaccharide, 00:00:00 [place] [facility] PPSV23 (PNEUMOVAX) Branch PPD (TB) 2001-10-04 Completed [facility] of 00:00:00 [facility] Pneumococcal 2001-10-04 Completed University o f Polysaccharide, 00:00:00 [place] [facility] PPSV23 (PNEUMOVAX) Branch PPD (TB) 2001-10-04 Completed [facility] of 00:00:00 [facility] Pneumococcal 2001-10-04 Completed University o f Polysaccharide, 00:00:00 [place] [facility] PPSV23 (PNEUMOVAX) Branch PPD (TB) 2001-10-04 Completed [facility] of 00:00:00 [facility] Pneumococcal 2001-10-04 Completed University o f Polysaccharide, 00:00:00 [place] [facility] PPSV23 (PNEUMOVAX) Branch PPD (TB) 2001-10-04 Completed [facility] of 00:00:00 [facility] Pneumococcal 2001-10-04 Completed University o f Polysaccharide, 00:00:00 [place] [facility] PPSV23 (PNEUMOVAX) Branch PPD (TB) 2001-10-04 Completed [facility] of 00:00:00 [facility] Vital Signs Vital Name Observation Time Observation Value Comments Source Systolic blood 2022-05-10 22:00:00 159 mm[Hg] Univer sity of pressure [facility] Diastolic blood 2022-05-10 22:00:00 87 mm[Hg] Unive rsity of pressure [facility] Heart rate 2022-05-10 22:00:00 56 /min [facility] Body temperature 2022-05-10 22:00:00 36.61 Amina Univ ersity of [facility] Respiratory rate 2022-05-10 22:00:00 17 /min Univ ersity [facility] Oxygen saturation in 2022-05-10 22:00:00 98 /min University of Arterial blood by [place] [employer] [facility]firio Pulse oximetry Branch Body weight 2022-05-10 [...] 100 /min University of Arterial blood by [employer] porfirio Pulse oximetry Branch Body temperature 2022-05-08 [...] 99 /min University of Arterial blood by [facility] Pulse oximetry Branch Body temperature 2022-05-06 20:12:00 36.5 Amina Univ ersity [facility] Body height 2022-05-06 20:12:00 162.6 cm [facility] Body weight 2022-05-06 20:12:00 78.926 kg [facility] BMI 2022-05-06 20:12:00 29.87 kg/m2 [facility] Systolic blood 2022-04-22 19:50:00 156 mm[Hg] Univer sity of pressure [facility] Diastolic blood 2022-04-22 19:50:00 89 mm[Hg] Unive rsity of pressure [facility] Heart rate 2022-04-22 19:50:00 69 /min [facility] [place] [facility] [place] Body temperature 2022-04-22 19:50:00 36.67 Amina [facility] Respiratory rate 2022-04-22 19:50:00 17 /min Univ ers[facility] Body height 2022-04-22 19:50:00 162.6 cm [facility] Body weight 2022-04-22 19:50:00 80.74 kg [facility] BMI 2022-04-22 19:50:00 30.55 kg/m2 [facility] Oxygen saturation in 2022-04-22 19:50:00 96 /min University of Arterial blood by [facility] Pulse oximetry Branch Systolic blood 2022-03-05 15:23:00 167 mm[Hg] Univer sity of pressure [facility] Diastolic blood 2022-03-05 15:23:00 105 mm[Hg] Unive rsity of pressure [facility] Heart rate 2022-03-05 15:23:00 49 /min [facility] Body temperature 2022-03-05 15:18:00 36.67 Amina [facility] Respiratory rate 2022-03-05 15:18:00 18 /min Univ ersity [facility] Body height 2022-03-05 15:18:00 162.6 cm [facility] Body weight 2022-03-05 15:18:00 74.707 kg [facility] BMI 2022-03-05 15:18:00 28.27 kg/m2 [facility] Systolic blood 2022-02-16 21:41:00 169 mm[Hg] Univer sity of pressure [facility] Diastolic blood 2022-02-16 21:41:00 86 mm[Hg] Unive rsity of pressure [facility] Heart rate 2022-02-16 21:41:00 51 /min [facility] [place] Body temperature 2022-02-16 21:41:00 36.56 Amina Univ ersity of [facility] Respiratory rate 2022-02-16 21:41:00 17 /min [facility] Oxygen saturation in 2022-02-16 21:41:00 98 /min [facility] Arterial blood by [facility] Pulse oximetry Branch Body height 2022-02-11 16:02:00 162.6 cm Universi ty of [facility] Body weight 2022-02-11 16:02:00 79.379 kg [facility] BMI 2022-02-11 16:02:00 30.04 kg/m2 [facility] Systolic blood 2021-11-20 13:47:00 165 mm[Hg] Univer sity of pressure [facility] Diastolic blood 2021-11-20 13:47:00 83 mm[Hg] Unive rsity of pressure [facility] Heart rate 2021-11-20 13:47:00 58 /min [facility] [place] Body temperature 2021-11-20 13:42:00 36.39 Amina Univ ersity of [facility] Respiratory rate 2021-11-20 13:42:00 16 /min Univ ersity of [facility] Body height 2021-11-20 13:42:00 162.6 cm [facility] Body weight 2021-11-20 13:42:00 84.369 kg [facility] BMI 2021-11-20 13:42:00 31.93 kg/m2 Universi ty of [facility] Systolic blood 2021-07-14 15:18:00 142 mm[Hg] [facility] Diastolic blood 2021-07-14 15:18:00 76 mm[Hg] [facility] Heart rate 2021-07-14 15:18:00 61 /min [facility] Body height 2021-07-14 15:18:00 162.6 cm [facility] Body weight 2021-07-14 15:18:00 94.802 kg [facility] BMI 2021-07-14 15:18:00 35.87 kg/m2 [facility] Systolic blood 2022-03-05 15:23:00 167 mm[Hg] Univer sity of pressure [facility] Diastolic blood 2022-03-05 15:23:00 105 mm[Hg] Unive rsity of [facility] Heart rate 2022-03-05 15:23:00 49 /min Universi ty [facility] Body temperature 2022-03-05 15:18:00 36.67 Amina [facility] 2022-03-05 15:18:00 18 /min [facility] Body height 2022-03-05 15:18:00 162.6 cm [facility] Body weight 2022-03-05 15:18:00 74.707 kg [facility] BMI 2022-03-05 15:18:00 28.27 kg/m2 [facility] Oxygen saturation in 2022-02-16 21:41:00 98 /min [facility] Arterial blood by [facility] Pulse oximetry [place] Systolic blood 2020-12-08 15:48:00 125 mm[Hg] Method [facility] pressure Diastolic blood 2020-12-08 15:48:00 76 mm[Hg] [facility] pressure Heart rate 2020-12-08 15:48:00 64 /min [facility] Body temperature 2020-12-08 15:48:00 36.61 Amina [facility] Respiratory rate 2020-12-08 15:48:00 17 /min [facility] Body height 2020-12-08 15:48:00 162.6 cm [facility] Body weight 2020-12-08 15:48:00 98.884 kg [facility] BMI 2020-12-08 15:48:00 37.42 kg/m2 [facility] Oxygen saturation in 2020-12-08 15:48:00 97 /min [facility] Arterial blood by Pulse oximetry Respitory Rate 2020-08-30 13:00:00 Memori al Marty Systolic (mm Hg) 2020-08-30 13:00:00 Caesar rial [place] Diastolic (mm Hg) 2020-08-30 13:00:00 Mem orial [place] Systolic (mm Hg) 2020-08-30 11:00:00 Caesar rial [place] Diastolic (mm Hg) 2020-08-30 11:00:00 Mem orial [facility] Temperature Oral (F) 2020-08-30 11:00:00 98.4 F [facility] Respitory Rate 2020-08-30 11:00:00 Memori al [place] Respitory Rate 2020-08-30 10:00:00 Memori al [place] Systolic (mm Hg) 2020-08-30 10:00:00 Caesar rial [facility] Diastolic (mm Hg) 2020-08-30 10:00:00 Mem orial [place] Temperature Oral (F) 2020-08-30 00:00:00 96.9 F [facility] Temperature Oral (F) 2020-08-29 11:26:00 97.6 F [facility] Height 2020-08-29 10:30:00 162.56 cm [facility] Weight 2020-08-29 10:30:00 [facility] [place] BMI Calculated 2020-08-29 10:30:00 Memraymond andre [facility] Procedures Procedure Date / Time Performing Clinician Source Performed URINALYSIS 2022-05-10 19:36:00 Home Matthews [facility] TROPONIN I 2022-05-10 18:34:00 Home Matthews [facility] COMP. METABOLIC PANEL 2022-05-10 18:34:00 Home Matthwes [facility] ([id number]) [facility] CBC WITH DIFF 2022-05-10 18:34:00 Home Matthews [facility] XR CHEST 2 VW 2022-05-10 17:24:58 Home Matthews [facility] CONSENT/REFUSAL FOR 2022-05-10 16:26:23 Doctor Unassigned, [facility] DIAGNOSIS AND TREATMENT [place] [facility] CONSENT/REFUSAL FOR 2022-05-10 16:26:09 Doctor Unassigned, [facility] DIAGNOSIS AND TREATMENT [place] [place] URINALYSIS 2022-05-08 22:43:00 Theresa Hickman [facility] XR CHEST 2 VW 2022-05-06 22:56:53 Anette Olea [facility] COMP. METABOLIC PANEL 2022-05-06 22:14:00 Anette Olea [facility] ([id number]) Medical Branch CBC WITH DIFF 2022-05-06 22:14:00 Anette Olea [facility] COVID-19 (ID NOW RAPID 2022-05-06 22:14:00 Anette Olea [facility] TESTING) Medical Branch BASIC METABOLIC PANEL (NA, 2022-04-22 21:23:00 Paulette Gray [facility] K, CL, CO2, GLUCOSE, BUN, Medica l [place] CREATININE, [place]) CBC WITH DIFF 2022-04-22 21:23:00 Paulette Gray [facility] CONSENT/REFUSAL FOR 2022-04-22 19:45:46 Doctor Unassigned, [facility] DIAGNOSIS AND TREATMENT [place] [facility] SARS-COV-2 COVID-19 2022-03-05 16:09:27 [facility] DIMITRIS-SUCROSE VACCINE [address] [place] [address] YRS+, BIVALENT 0.3ML, IM, (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) FLU 2022-03-05 16:09:27 [facility] VACC(),65+YR,0.5 Medica l Branch ML,IM,ADJUVANTED,QUAD(FLUA D) FLU 2022-03-05 16:09:27 [facility] VACC(),65+YR,0.5 Medica l Branch ML,IM,ADJUVANTED,QUAD(FLUA D) SARS-COV-2 COVID-19 2022-03-05 16:09:27 [facility] DIMITRIS-SUCROSE VACCINE [address] [place] [address] YRS+, BIVALENT 0.3ML, IM, (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) MAGNESIUM 2022-02-15 09:41:00 Sofia Gacria [facility] BASIC METABOLIC PANEL (NA, 2022-02-15 09:41:00 Sofia Garcai [facility] K, CL, CO2, GLUCOSE, BUN, Medica l Branch CREATININE, [place]) CBC WITH DIFF 2022-02-15 09:41:00 Sofia Garcia [facility] N-TERMINAL PRO-BNP 2022-02-15 09:41:00 Sofia Garcia [facility] CBC WITH DIFF 2022-02-15 09:41:00 Radha Sofia [facility] BASIC METABOLIC PANEL (NA, 2022-02-15 09:41:00 Sofia Garcia [facility] K, CL, CO2, GLUCOSE, BUN, Medica l Branch CREATININE, CA) MAGNESIUM 2022-02-15 09:41:00 Radha [facility] N-TERMINAL PRO-BNP 2022-02-15 09:41:00 Sofia Garcia [facility] BASIC METABOLIC PANEL (NA, 2022-02-13 09:40:00 Sofia Garcia [facility] K, CL, CO2, GLUCOSE, BUN, Medica l Branch CREATININE, CA) CBC WITH DIFF 2022-02-13 09:40:00 Radha [facility] BASIC METABOLIC PANEL (NA, 2022-02-13 09:40:00 Sofia Garcia [facility] K, CL, CO2, GLUCOSE, BUN, Medica l Branch CREATININE, CA) CBC WITH DIFF 2022-02-13 09:40:00 Sofia Garcia [facility] TROPONIN I 2022-02-11 23:41:00 Radha [facility] N-TERMINAL PRO-BNP 2022-02-11 23:41:00 Radha Sofia [facility] TROPONIN I 2022-02-11 23:41:00 Sofia Garcia [facility] N-TERMINAL PRO-BNP 2022-02-11 23:41:00 Sofia Garcia [facility] HB ECG ROUTINE & RHYTHM 2022-02-11 22:15:36 Sofia Garcia [facility] TRANSTHORACIC ECHO (TTE) 2022-02-11 21:26:50 [facility] (TTE) 2022-02-11 21:26:50 [facility] 2022-02-11 07:45:43 Reilly Means [facility] CONTRAST [facility] CT ABDOMEN PELVIS W 2022-02-11 07:45:43 Reilly Means [facility] CONTRAST [facility] RAPID INFLUENZA A/B 2022-02-11 06:54:00 Reilly Means [facility] RAPID INFLUENZA A/B 2022-02-11 06:54:00 Reilly Means [facility] URINALYSIS 2022-02-11 06:45:00 Reilly Means [facility] URINE CULTURE 2022-02-11 06:45:00 Reilly Means [facility] URINALYSIS 2022-02-11 06:45:00 Reilly Means [facility] URINE CULTURE 2022-02-11 06:45:00 Reilly Means [facility] HB ECG ROUTINE & RHYTHM 2022-02-11 05:22:08 Reilly Means [facility] HB ECG ROUTINE & RHYTHM 2022-02-11 05:22:08 Reilly Means [facility] BLOOD CULTURE SCREEN 2022-02-11 04:58:00 Reilly Means [facility] TROPONIN I 2022-02-11 04:58:00 Reilly Means [facility] COMP. METABOLIC PANEL 2022-02-11 04:58:00 Reilly Means [facility] ([id number]) [facility] CBC WITH DIFF 2022-02-11 04:58:00 Reilly Means [facility] PROTHROMBIN TIME / INR 2022-02-11 04:58:00 Reilly Means [facility] ACTIVATED PARTIAL THRMPLAS 2022-02-11 04:58:00 Reilly Means [facility] N-TERMINAL PRO-BNP 2022-02-11 04:58:00 Reilly Means [facility] LACTIC ACID WHOLE BLOOD 2022-02-11 04:58:00 Reilly Means [facility] COVID-19 (ID NOW RAPID 2022-02-11 04:58:00 Reilly Means [facility] TESTING) Medical Branch LAB ONLY COVID 2022-02-11 04:58:[address] [facility] CBC WITH DIFF 2022-02-11 04:58:00 Reilly Means [facility] ACTIVATED PARTIAL THRMPLAS 2022-02-11 04:58:00 Reilly Means [facility] PROTHROMBIN TIME / INR 2022-02-11 04:58:00 Reilly Means [facility] COVID-19 (ID NOW RAPID 2022-02-11 04:58:00 Reilly Means [facility] TESTING) Medical Branch COMP. METABOLIC PANEL 2022-02-11 04:58:00 Reilly Means [facility] ([id number]) Medical Branch TROPONIN I 2022-02-11 04:58:00 Reilly Means [facility] N-TERMINAL PRO-BNP 2022-02-11 04:58:00 Reilly Means [facility] BLOOD CULTURE SCREEN 2022-02-11 04:58:00 Reilly Means [facility] LACTIC ACID WHOLE BLOOD 2022-02-11 04:58:00 Reilly Means [facility] LAB ONLY COVID 2022-02-11 04:58:[address] [facility] XR CHEST 1 VW 2022-02-11 04:27:42 Reilly Means [facility] XR CHEST 1 VW 2022-02-11 04:27:42 Reilly Means [facility] HOSPITAL ADMISSION 2022-02-10 05:01:00 Doctor Unassigned, [facility] Name [facility] [place] HOSPITAL ADMISSION 2022-02-10 05:01:00 Doctor Unassigned, [facility] Name [facility] [place] ECG 12-LEAD 2021-07-14 15:14:00 Elan Lira [facility] [id number] 2021-06-17 00:00:00 RASSA [facility] GASTROINTESTINAL PANEL 2020-12-08 22:21:00 Jailyn Eliseo [facility] XR ABDOMEN 1 VW 2020-12-08 18:06:32 Eliseo Arce spital OR [place] < 1 HOUR 2020-09-05 22:39:00 Eliseo Arce spital SURGICAL PATHOLOGY REQUEST 2020-09-05 21:54:00 Eliseo Arce [facility] XR CHEST 1 VW PORTABLE 2020-09-05 19:55:00 Eliseo Arce [facility] DISCHARGE PATIENT 2020-09-05 17:27:55 Lucas Harris [facility] [place] AN ELECTIVE 2020-09-05 16:47:23 [facility] EGD, INTRAOPERATIVE 2020-09-05 16:27:00 [facility] 2020-09-05 15:04:00 [facility] TIME (PTT) M. PROTHROMBIN TIME WITH INR 2020-09-05 15:04:00 Mindy Maharaj [facility] M. Plan of Care Planned Activity Planned Date Details Comments Source Future Scheduled 2022-06-11 SHINGLES VACCINES (1 Met [facility] Test 16:10:12 of 2) [code = SHINGLES VACCINES (1 of 2)] Future Scheduled 2022-06-11 BREAST CANCER [facility] Test 16:10:12 SCREENING [code = BREAST CANCER SCREENING] Future Scheduled 2022-06-11 COLONOSCOPY SCREENING [facility] Test 16:10:12 [code = COLONOSCOPY SCREENING] Future Scheduled 2022-06-11 HEPATITIS B VACCINES Met [facility] Test 16:10:12 (1 of 3 - Risk 3-dose series) [code = HEPATITIS B VACCINES (1 of 3 - Risk 3-dose series)] Future Scheduled 2022-06-11 COVID-19 VACCINE (3 - [facility] Test 16:10:12 Booster for Pfizer series) [code = COVID-19 VACCINE (3 - Booster for Pfizer series)] Future Scheduled 2022-06-11 65+ PNEUMOCOCCAL [facility] Test 16:10:12 VACCINE (4 - PPSV23 if available, else PCV20) [code = 65+ PNEUMOCOCCAL VACCINE (4 - PPSV23 if available, else PCV20)] Future Scheduled 2022-06-11 INFLUENZA VACCINE Method [facility] Test 16:10:12 [code = INFLUENZA VACCINE] Future Scheduled 2022-06-11 SHINGLES VACCINES (1 Met [facility] Test 16:10:12 of 2) [code = SHINGLES VACCINES (1 of 2)] Future Scheduled 2022-06-11 BREAST CANCER [facility] Test 16:10:12 SCREENING [code = BREAST CANCER SCREENING] Future Scheduled 2022-06-11 COLONOSCOPY SCREENING [facility] Test 16:10:12 [code = COLONOSCOPY SCREENING] Future Scheduled 2022-06-11 HEPATITIS B VACCINES Met [facility] Test 16:10:12 (1 of 3 - Risk 3-dose series) [code = HEPATITIS B VACCINES (1 of 3 - Risk 3-dose series)] Future Scheduled 2022-06-11 COVID-19 VACCINE (3 - Me [facility] Test 16:10:12 Booster for Pfizer series) [code = COVID-19 VACCINE (3 - Booster for Pfizer series)] Future Scheduled 2022-06-11 65+ [facility] 16:10:12 VACCINE (4 - PPSV23 if available, else PCV20) [code = 65+ PNEUMOCOCCAL VACCINE (4 - PPSV23 if available, else PCV20)] Future Scheduled 2022-06-11 INFLUENZA VACCINE Method [facility] Test 16:10:12 [code = INFLUENZA VACCINE] Future Scheduled 2022-06-11 SHINGLES VACCINES (1 Met [facility] Test 16:10:12 of 2) [code = SHINGLES VACCINES (1 of 2)] Future Scheduled 2022-06-11 BREAST CANCER [facility] Test 16:10:12 SCREENING [code = BREAST CANCER SCREENING] Future Scheduled 2022-06-11 COLONOSCOPY SCREENING [facility] Test 16:10:12 [code = COLONOSCOPY SCREENING] Future Scheduled 2022-06-11 HEPATITIS B VACCINES Met [facility] Test 16:10:12 (1 of 3 - Risk 3-dose series) [code = HEPATITIS B VACCINES (1 of 3 - Risk 3-dose series)] Future Scheduled 2022-06-11 COVID-19 VACCINE (3 - [facility] Test 16:10:12 Booster for Pfizer series) [code = COVID-19 VACCINE (3 - Booster for Pfizer series)] Future Scheduled 2022-06-11 65+ [facility] 16:10:12 VACCINE (4 - PPSV23 if available, else PCV20) [code = 65+ PNEUMOCOCCAL VACCINE (4 - PPSV23 if available, else PCV20)] Future Scheduled 2022-06-11 INFLUENZA VACCINE Method [facility] Test 16:10:12 [code = INFLUENZA VACCINE] Future Scheduled 2022-06-11 SHINGLES VACCINES (1 Met [facility] Test 16:10:12 of 2) [code = SHINGLES VACCINES (1 of 2)] Future Scheduled 2022-06-11 BREAST CANCER [facility] Test 16:10:12 SCREENING [code = BREAST CANCER SCREENING] Future Scheduled 2022-06-11 COLONOSCOPY SCREENING [facility] Test 16:10:12 [code = COLONOSCOPY SCREENING] Future Scheduled 2022-06-11 HEPATITIS B VACCINES Met [facility] Test 16:10:12 (1 of 3 - Risk 3-dose series) [code = HEPATITIS B VACCINES (1 of 3 - Risk 3-dose series)] Future Scheduled 2022-06-11 COVID-19 VACCINE (3 - Me [facility] Test 16:10:12 Booster for Pfizer series) [code = COVID-19 VACCINE (3 - Booster for Pfizer series)] Future Scheduled 2022-06-11 65+ [facility] 16:10:12 VACCINE (4 - PPSV23 if available, else PCV20) [code = 65+ PNEUMOCOCCAL VACCINE (4 - PPSV23 if available, else PCV20)] Future Scheduled 2022-06-11 INFLUENZA VACCINE Method [facility] Test 16:10:12 [code = INFLUENZA VACCINE] Future Scheduled 2022-06-11 SHINGLES VACCINES (1 Met [facility] Test 16:10:12 of 2) [code = SHINGLES VACCINES (1 of 2)] Future Scheduled 2022-06-11 BREAST CANCER [facility] Test 16:10:12 SCREENING [code = BREAST CANCER SCREENING] Future Scheduled 2022-06-11 COLONOSCOPY SCREENING [facility] Test 16:10:12 [code = COLONOSCOPY SCREENING] Future Scheduled 2022-06-11 HEPATITIS B VACCINES Met [facility] Test 16:10:12 (1 of 3 - Risk 3-dose series) [code = HEPATITIS B VACCINES (1 of 3 - Risk 3-dose series)] Future Scheduled 2022-06-11 COVID-19 VACCINE (3 - Me [facility] Test 16:10:12 Booster for Pfizer series) [code = COVID-19 VACCINE (3 - Booster for Pfizer series)] Future Scheduled 2022-06-11 65+ [facility] 16:10:12 VACCINE (4 - PPSV23 if available, else PCV20) [code = 65+ PNEUMOCOCCAL VACCINE (4 - PPSV23 if available, else PCV20)] Future Scheduled 2022-06-11 INFLUENZA VACCINE Method [facility] Test 16:10:12 [code = INFLUENZA VACCINE] Future Scheduled 2022-06-11 SHINGLES VACCINES (1 Met [facility] Test 16:10:12 of 2) [code = SHINGLES VACCINES (1 of 2)] Future Scheduled 2022-06-11 BREAST CANCER [facility] Test 16:10:12 SCREENING [code = BREAST CANCER SCREENING] Future Scheduled 2022-06-11 COLONOSCOPY SCREENING Me [facility] Test 16:10:12 [code = COLONOSCOPY SCREENING] Future Scheduled 2022-06-11 HEPATITIS B VACCINES Met [facility] Test 16:10:12 (1 of 3 - Risk 3-dose series) [code = HEPATITIS B VACCINES (1 of 3 - Risk 3-dose series)] Future Scheduled 2022-06-11 COVID-19 VACCINE (3 - [facility] Test 16:10:12 Booster for Pfizer series) [code = COVID-19 VACCINE (3 - Booster for Pfizer series)] Future Scheduled 2022-06-11 65+ [facility] 16:10:12 VACCINE (4 - PPSV23 if available, else PCV20) [code = 65+ PNEUMOCOCCAL VACCINE (4 - PPSV23 if available, else PCV20)] Future Scheduled 2022-06-11 INFLUENZA VACCINE Method [facility] Test 16:10:12 [code = INFLUENZA VACCINE] Future Scheduled 2022-05-10 SHINGLES VACCINES (1 Met [facility] Test 10:21:35 of 2) [code = SHINGLES VACCINES (1 of 2)] Future Scheduled 2022-05-10 BREAST CANCER [facility] Test 10:21:35 SCREENING [code = BREAST CANCER SCREENING] Future Scheduled 2022-05-10 COLONOSCOPY SCREENING Me [facility] Test 10:21:35 [code = COLONOSCOPY SCREENING] Future Scheduled 2022-05-10 HEPATITIS B VACCINES Met [facility] Test 10:21:35 (1 of 3 - Risk 3-dose series) [code = HEPATITIS B VACCINES (1 of 3 - Risk 3-dose series)] Future Scheduled 2022-05-10 COVID-19 VACCINE (3 - Me [facility] Test 10:21:35 Booster for Pfizer series) [code = COVID-19 VACCINE (3 - Booster for Pfizer series)] Future Scheduled 2022-05-10 65+ [facility] 10:21:35 VACCINE (4 - PPSV23 if available, else PCV20) [code = 65+ PNEUMOCOCCAL VACCINE (4 - PPSV23 if available, else PCV20)] Future Scheduled 2022-05-10 INFLUENZA VACCINE Method [facility] Test 10:21:35 [code = INFLUENZA VACCINE] Future Scheduled 2022-05-10 SHINGLES VACCINES (1 Met [facility] Test 10:21:35 of 2) [code = SHINGLES VACCINES (1 of 2)] Future Scheduled 2022-05-10 BREAST CANCER [facility] Test 10:21:35 SCREENING [code = BREAST CANCER SCREENING] Future Scheduled 2022-05-10 COLONOSCOPY SCREENING [facility] Test 10:21:35 [code = COLONOSCOPY SCREENING] Future Scheduled 2022-05-10 HEPATITIS B VACCINES Met [facility] Test 10:21:35 (1 of 3 - Risk 3-dose series) [code = HEPATITIS B VACCINES (1 of 3 - Risk 3-dose series)] Future Scheduled 2022-05-10 COVID-19 VACCINE (3 - Me [facility] Test 10:21:35 Booster for Pfizer series) [...] Future Scheduled 2022-05-06 SHINGLES VACCINES (1 Met [facility] Test 14:03:13 of 2) [code = SHINGLES VACCINES (1 of 2)] Future Scheduled 2022-05-06 BREAST CANCER [facility] Test 14:03:13 SCREENING [code = BREAST CANCER SCREENING] Future Scheduled 2022-05-06 COLONOSCOPY SCREENING [facility] Test 14:03:13 [code = COLONOSCOPY SCREENING] Future Scheduled 2022-05-06 HEPATITIS B VACCINES Met [facility] Test 14:03:13 (1 of 3 - Risk 3-dose series) [code = HEPATITIS B VACCINES (1 of 3 - Risk 3-dose series)] Future Scheduled 2022-05-06 COVID-19 VACCINE (3 - [facility] Test 14:03:13 Booster for Pfizer series) [code = COVID-19 VACCINE (3 - Booster for Pfizer series)] Future Scheduled 2022-05-06 65+ PNEUMOCOCCAL [facility] Test 14:03:13 VACCINE (4 - PPSV23 if available, else PCV20) [code = 65+ PNEUMOCOCCAL VACCINE (4 - PPSV23 if available, else PCV20)] Future Scheduled 2022-05-06 INFLUENZA VACCINE Method [facility] Test 14:03:13 [code = INFLUENZA VACCINE] Future Scheduled 2022-04-30 SHINGLES VACCINES (1 Met [facility] Test 01:07:32 of 2) [code = SHINGLES VACCINES (1 of 2)] Future Scheduled 2022-04-30 BREAST CANCER [facility] Test 01:07:32 SCREENING [code = BREAST CANCER SCREENING] Future Scheduled 2022-04-30 COLONOSCOPY SCREENING [facility] Test 01:07:32 [code = COLONOSCOPY SCREENING] Future Scheduled 2022-04-30 HEPATITIS B VACCINES Met [facility] Test 01:07:32 (1 of 3 - Risk 3-dose series) [code = HEPATITIS B VACCINES (1 of 3 - Risk 3-dose series)] Future Scheduled 2022-04-30 COVID-19 VACCINE (3 - [facility] Test 01:07:32 Booster for Pfizer series) [code = COVID-19 VACCINE (3 - Booster for Pfizer series)] Future Scheduled 2022-04-30 65+ PNEUMOCOCCAL [facility] Test 01:07:32 VACCINE (4 - PPSV23 if available, else PCV20) [code = 65+ PNEUMOCOCCAL VACCINE (4 - PPSV23 if available, else PCV20)] Future Scheduled 2022-04-30 INFLUENZA VACCINE Method [facility] Test 01:07:32 [code = INFLUENZA VACCINE] Future Scheduled 2022-04-30 SHINGLES VACCINES (1 Met [facility] Test 01:07:32 of 2) [code = SHINGLES VACCINES (1 of 2)] Future Scheduled 2022-04-30 BREAST CANCER [facility] Test 01:07:32 SCREENING [code = BREAST CANCER SCREENING] Future Scheduled 2022-04-30 COLONOSCOPY SCREENING [facility] Test 01:07:32 [code = COLONOSCOPY SCREENING] Future Scheduled 2022-04-30 HEPATITIS B VACCINES Met [facility] Test 01:07:32 (1 of 3 - Risk 3-dose series) [code = HEPATITIS B VACCINES (1 of 3 - Risk 3-dose series)] Future Scheduled 2022-04-30 COVID-19 VACCINE (3 - [facility] Test 01:07:32 Booster for Pfizer series) [code = COVID-19 VACCINE (3 - Booster for Pfizer series)] Future Scheduled 2022-04-30 65+ PNEUMOCOCCAL [facility] Test 01:07:32 VACCINE (4 - PPSV23 if available, else PCV20) [code = 65+ PNEUMOCOCCAL VACCINE (4 - PPSV23 if available, else PCV20)] Future Scheduled 2022-04-30 INFLUENZA VACCINE Method [facility] Test 01:07:32 [code = INFLUENZA VACCINE] Future Scheduled 2022-04-30 SHINGLES VACCINES (1 Met [facility] Test 01:07:32 of 2) [code = SHINGLES VACCINES (1 of 2)] Future Scheduled 2022-04-30 BREAST CANCER [facility] Test 01:07:32 SCREENING [code = BREAST CANCER SCREENING] Future Scheduled 2022-04-30 COLONOSCOPY SCREENING [facility] Test 01:07:32 [code = COLONOSCOPY SCREENING] Future Scheduled 2022-04-30 HEPATITIS B VACCINES Met [facility] Test 01:07:32 (1 of 3 - Risk 3-dose series) [code = HEPATITIS B VACCINES (1 of 3 - Risk 3-dose series)] Future Scheduled 2022-04-30 COVID-19 VACCINE (3 - [facility] Test 01:07:32 Booster for Pfizer series) [code = COVID-19 VACCINE (3 - Booster for Pfizer series)] Future Scheduled 2022-04-30 65+ PNEUMOCOCCAL [facility] Test 01:07:32 VACCINE (4 - PPSV23 if available, else PCV20) [code = 65+ PNEUMOCOCCAL VACCINE (4 - PPSV23 if available, else PCV20)] Future Scheduled 2022-04-30 INFLUENZA VACCINE Method [facility] Test 01:07:32 [code = INFLUENZA VACCINE] Future Scheduled 2022-04-25 SHINGLES VACCINES (1 Met [facility] Test 01:45:02 of 2) [code = SHINGLES VACCINES (1 of 2)] Future Scheduled 2022-04-25 BREAST CANCER [facility] Test 01:45:02 SCREENING [code = BREAST CANCER SCREENING] Future Scheduled 2022-04-25 COLONOSCOPY SCREENING [facility] Test 01:45:02 [code = COLONOSCOPY SCREENING] Future Scheduled 2022-04-25 HEPATITIS B VACCINES Met [facility] Test 01:45:02 (1 of 3 - Risk 3-dose series) [code = HEPATITIS B VACCINES (1 of 3 - Risk 3-dose series)] Future Scheduled 2022-04-25 COVID-19 VACCINE (3 - [facility] Test 01:45:02 Booster for Pfizer series) [code = COVID-19 VACCINE (3 - Booster for Pfizer series)] Future Scheduled 2022-04-25 65+ PNEUMOCOCCAL [facility] Test 01:45:02 VACCINE (4 - PPSV23 if available, else PCV20) [code = 65+ PNEUMOCOCCAL VACCINE (4 - PPSV23 if available, else PCV20)] Future Scheduled 2022-04-25 INFLUENZA VACCINE Method [facility] Test 01:45:02 [code = INFLUENZA VACCINE] Future Scheduled 2022-03-25 SHINGLES VACCINES (1 Met [facility] Test 14:48:42 of 2) [code = SHINGLES VACCINES (1 of 2)] Future Scheduled 2022-03-25 BREAST CANCER [facility] Test 14:48:42 SCREENING [code = BREAST CANCER SCREENING] Future Scheduled 2022-03-25 COLONOSCOPY SCREENING [facility] Test 14:48:42 [code = COLONOSCOPY SCREENING] Future Scheduled 2022-03-25 HEPATITIS B VACCINES Met [facility] Test 14:48:42 (1 of 3 - Risk 3-dose series) [code = HEPATITIS B VACCINES (1 of 3 - Risk 3-dose series)] Future Scheduled 2022-03-25 COVID-19 VACCINE (3 - Me [facility] Test 14:48:42 Booster for Pfizer [...] Future Scheduled 2022-03-25 SHINGLES VACCINES (1 Met [facility] Test 14:48:42 of 2) [code = SHINGLES VACCINES (1 of 2)] Future Scheduled 2022-03-25 BREAST CANCER [facility] Test 14:48:42 SCREENING [code = BREAST CANCER SCREENING] Future Scheduled 2022-03-25 COLONOSCOPY SCREENING [facility] Test 14:48:42 [code = COLONOSCOPY SCREENING] Future Scheduled 2022-03-25 HEPATITIS B VACCINES Met [facility] Test 14:48:42 (1 of 3 - Risk 3-dose series) [code = HEPATITIS B VACCINES (1 of 3 - Risk 3-dose series)] Future Scheduled 2022-03-25 COVID-19 VACCINE (3 - Me [facility] Test 14:48:42 Booster for Pfizer series) [code = COVID-19 VACCINE (3 - Booster for Pfizer series)] Future Scheduled 2022-03-25 65+ [facility] 14:48:42 VACCINE (4 - PPSV23 if available, else PCV20) [code = 65+ PNEUMOCOCCAL VACCINE (4 - PPSV23 if available, else PCV20)] Future Scheduled 2022-03-25 INFLUENZA VACCINE Method [facility] Test 14:48:42 [code = INFLUENZA VACCINE] Future Scheduled 2022-03-25 SHINGLES VACCINES (1 Met [facility] Test 14:48:42 of 2) [code = SHINGLES VACCINES (1 of 2)] Future Scheduled 2022-03-25 BREAST CANCER [facility] Test 14:48:42 SCREENING [code = BREAST CANCER SCREENING] Future Scheduled 2022-03-25 COLONOSCOPY SCREENING [facility] Test 14:48:42 [code = COLONOSCOPY SCREENING] Future Scheduled 2022-03-25 HEPATITIS B VACCINES Met [facility] Test 14:48:42 (1 of 3 - Risk 3-dose series) [code = HEPATITIS B VACCINES (1 of 3 - Risk 3-dose series)] Future Scheduled 2022-03-25 COVID-19 VACCINE (3 - Me [facility] Test 14:48:42 Booster for Pfizer series) [code = COVID-19 VACCINE (3 - Booster for Pfizer series)] Future Scheduled 2022-03-25 65+ PNEUMOCOCCAL [facility] Test 14:48:42 VACCINE (4 - PPSV23 if available, else PCV20) [code = 65+ PNEUMOCOCCAL VACCINE (4 - PPSV23 if available, else PCV20)] Future Scheduled 2022-03-25 INFLUENZA VACCINE Method [facility] Test 14:48:42 [code = INFLUENZA VACCINE] Future Scheduled 2022-03-25 SHINGLES VACCINES (1 Met [facility] Test 14:48:42 of 2) [code = SHINGLES VACCINES (1 of 2)] Future Scheduled 2022-03-25 BREAST CANCER [facility] Test 14:48:42 SCREENING [code = BREAST CANCER SCREENING] Future Scheduled 2022-03-25 COLONOSCOPY SCREENING [facility] Test 14:48:42 [code = COLONOSCOPY SCREENING] Future Scheduled 2022-03-25 HEPATITIS B VACCINES Met [facility] Test 14:48:42 (1 of 3 - Risk 3-dose series) [code = HEPATITIS B VACCINES (1 of 3 - Risk 3-dose series)] Future Scheduled 2022-03-25 COVID-19 VACCINE (3 - [facility] Test 14:48:42 Booster for Pfizer series) [code = COVID-19 VACCINE (3 - Booster for Pfizer series)] Future Scheduled 2022-03-25 65+ [facility] 14:48:42 VACCINE (4 - PPSV23 if available, else PCV20) [code = 65+ PNEUMOCOCCAL VACCINE (4 - PPSV23 if available, else PCV20)] Future Scheduled 2022-03-25 INFLUENZA VACCINE Method [facility] Test 14:48:42 [code = INFLUENZA VACCINE] Future Scheduled 2022-03-25 SHINGLES VACCINES (1 Met [facility] Test 14:48:42 of 2) [code = SHINGLES VACCINES (1 of 2)] Future Scheduled 2022-03-25 BREAST CANCER [facility] Test 14:48:42 SCREENING [code = BREAST CANCER SCREENING] Future Scheduled 2022-03-25 COLONOSCOPY SCREENING Me [facility] Test 14:48:42 [code = COLONOSCOPY SCREENING] Future Scheduled 2022-03-25 HEPATITIS B VACCINES Met [facility] Test 14:48:42 (1 of 3 - Risk 3-dose series) [code = HEPATITIS B VACCINES (1 of 3 - Risk 3-dose series)] Future Scheduled 2022-03-25 COVID-19 VACCINE (3 - Me [facility] Test 14:48:42 Booster for Pfizer series) [code = COVID-19 VACCINE (3 - Booster for Pfizer series)] Future Scheduled 2022-03-25 65+ [facility]AL [facility] 14:48:42 VACCINE (4 - PPSV23 if available, else PCV20) [code = 65+ PNEUMOCOCCAL VACCINE (4 - PPSV23 if available, else PCV20)] Future Scheduled 2022-03-25 INFLUENZA VACCINE Method [facility] Test 14:48:42 [code = INFLUENZA VACCINE] Future Scheduled 2022-03-25 SHINGLES VACCINES (1 Met [facility] Test 14:48:42 of 2) [code = SHINGLES VACCINES (1 of 2)] Future Scheduled 2022-03-25 BREAST CANCER [facility] Test 14:48:42 SCREENING [code = BREAST CANCER SCREENING] Future Scheduled 2022-03-25 COLONOSCOPY SCREENING [facility] Test 14:48:42 [code = COLONOSCOPY SCREENING] Future Scheduled 2022-03-25 HEPATITIS B VACCINES Met [facility] Test 14:48:42 (1 of 3 - Risk 3-dose series) [code = HEPATITIS B VACCINES (1 of 3 - Risk 3-dose series)] Future Scheduled 2022-03-25 COVID-19 VACCINE (3 - Me [facility] Test 14:48:42 Booster for Pfizer [...] Future Scheduled 2022-03-25 SHINGLES VACCINES (1 Met [facility] Test 14:48:42 of 2) [code = SHINGLES VACCINES (1 of 2)] Future Scheduled 2022-03-25 BREAST CANCER [facility] Test 14:48:42 SCREENING [code = BREAST CANCER SCREENING] Future Scheduled 2022-03-25 COLONOSCOPY SCREENING [facility] Test 14:48:42 [code = COLONOSCOPY SCREENING] Future Scheduled 2022-03-25 HEPATITIS B VACCINES Met [facility] Test 14:48:42 (1 of 3 - Risk 3-dose series) [code = HEPATITIS B VACCINES (1 of 3 - Risk 3-dose series)] Future Scheduled 2022-03-25 COVID-19 VACCINE (3 - [facility] Test 14:48:42 Booster for Pfizer series) [code = COVID-19 VACCINE (3 - Booster for Pfizer series)] Future Scheduled 2022-03-25 65+ [facility]AL [facility] 14:48:42 VACCINE (4 - PPSV23 if available, else PCV20) [code = 65+ PNEUMOCOCCAL VACCINE (4 - PPSV23 if available, else PCV20)] Future Scheduled 2022-03-25 INFLUENZA VACCINE Method [facility] Test 14:48:42 [code = INFLUENZA VACCINE] Future Scheduled 2022-03-25 SHINGLES VACCINES (1 Met [facility] Test 14:48:42 of 2) [code = SHINGLES VACCINES (1 of 2)] Future Scheduled 2022-03-25 BREAST CANCER [facility] Test 14:48:42 SCREENING [code = BREAST CANCER SCREENING] Future Scheduled 2022-03-25 COLONOSCOPY SCREENING [facility] Test 14:48:42 [code = COLONOSCOPY SCREENING] Future Scheduled 2022-03-25 HEPATITIS B VACCINES Met [facility] Test 14:48:42 (1 of 3 - Risk 3-dose series) [code = HEPATITIS B VACCINES (1 of 3 - Risk 3-dose series)] Future Scheduled 2022-03-25 COVID-19 VACCINE (3 - [facility] Test 14:48:42 Booster for Pfizer [...] Future Scheduled 2022-03-25 SHINGLES VACCINES (1 Met [facility] Test 14:48:42 of 2) [code = SHINGLES VACCINES (1 of 2)] Future Scheduled 2022-03-25 BREAST CANCER [facility] Test 14:48:42 SCREENING [code = BREAST CANCER SCREENING] Future Scheduled 2022-03-25 COLONOSCOPY SCREENING [facility] Test 14:48:42 [code = COLONOSCOPY SCREENING] Future Scheduled 2022-03-25 HEPATITIS B VACCINES Met [facility] Test 14:48:42 (1 of 3 - Risk 3-dose series) [code = HEPATITIS B VACCINES (1 of 3 - Risk 3-dose series)] Future Scheduled 2022-03-25 COVID-19 VACCINE (3 - [facility] Test 14:48:42 Booster for Pfizer series) [code [...] Future Scheduled 2022-03-04 SHINGLES VACCINES (1 Met [facility] Test 14:03:57 of 2) [code = SHINGLES VACCINES (1 of 2)] Future Scheduled 2022-03-04 BREAST CANCER [facility] Test 14:03:57 SCREENING [code = BREAST CANCER SCREENING] Future Scheduled 2022-03-04 COLONOSCOPY SCREENING [facility] Test 14:03:57 [code = COLONOSCOPY SCREENING] Future Scheduled 2022-03-04 HEPATITIS B VACCINES Met [facility] Test 14:03:57 (1 of 3 - Risk 3-dose series) [code = HEPATITIS B VACCINES (1 of 3 - Risk 3-dose series)] Future Scheduled 2022-03-04 COVID-19 VACCINE (3 - [facility] Test 14:03:57 Booster for Pfizer series) [code = COVID-19 VACCINE (3 - Booster for Pfizer series)] Future Scheduled 2022-03-04 65+ PNEUMOCOCCAL [facility] Test 14:03:57 VACCINE (4 - PPSV23 if available, else PCV20) [code = 65+ PNEUMOCOCCAL VACCINE (4 - PPSV23 if available, else PCV20)] Future Scheduled 2022-03-04 INFLUENZA VACCINE Method [facility] Test 14:03:57 [code = INFLUENZA VACCINE] Future Scheduled 2022-03-04 SHINGLES VACCINES ([facility] [facility] 14:03:57 of 2) [code = SHINGLES VACCINES (1 of 2)] Future Scheduled 2022-03-04 BREAST CANCER [facility] Test 14:03:57 SCREENING [code = BREAST CANCER SCREENING] Future Scheduled 2022-03-04 COLONOSCOPY SCREENING [facility] Test 14:03:57 [code = COLONOSCOPY SCREENING] Future Scheduled 2022-03-04 HEPATITIS B VACCINES Met [facility] Test 14:03:57 (1 of 3 - Risk 3-dose series) [code = HEPATITIS B VACCINES (1 of 3 - Risk 3-dose series)] Future Scheduled 2022-03-04 COVID-19 VACCINE (3 - Me [facility] Test 14:03:57 Booster for Pfizer series) [code = COVID-19 VACCINE (3 - Booster for Pfizer series)] Future Scheduled 2022-03-04 65+ PNEUMOCOCCAL [facility] Test 14:03:57 VACCINE (4 - PPSV23 if available, else PCV20) [code = 65+ PNEUMOCOCCAL VACCINE (4 - PPSV23 if available, else PCV20)] Future Scheduled 2022-03-04 INFLUENZA VACCINE Method [facility] Test 14:03:57 [code = INFLUENZA VACCINE] Future Scheduled 2022-03-04 SHINGLES VACCINES (1 Met [facility] Test 14:03:57 of 2) [code = SHINGLES VACCINES (1 of 2)] Future Scheduled 2022-03-04 BREAST CANCER [facility] Test 14:03:57 SCREENING [code = BREAST CANCER SCREENING] Future Scheduled 2022-03-04 COLONOSCOPY SCREENING [facility] Test 14:03:57 [code = COLONOSCOPY SCREENING] Future Scheduled 2022-03-04 HEPATITIS B VACCINES Met [facility] Test 14:03:57 (1 of 3 - Risk 3-dose series) [code = HEPATITIS B VACCINES (1 of 3 - Risk 3-dose series)] Future Scheduled 2022-03-04 COVID-19 VACCINE (3 - Me [facility] Test 14:03:57 Booster for Pfizer series) [code = COVID-19 VACCINE (3 - Booster for Pfizer series)] Future Scheduled 2022-03-04 65+ PNEUMOCOCCAL [facility] Test 14:03:57 VACCINE (4 - PPSV23 if available, else PCV20) [code = 65+ PNEUMOCOCCAL VACCINE (4 - PPSV23 if available, else PCV20)] Future Scheduled 2022-03-04 INFLUENZA VACCINE Method [facility] Test 14:03:57 [code = INFLUENZA VACCINE] Future Scheduled 2022-03-04 SHINGLES VACCINES (1 Met [facility] Test 14:03:57 of 2) [code = SHINGLES VACCINES (1 of 2)] Future Scheduled 2022-03-04 BREAST CANCER [facility] Test 14:03:57 SCREENING [code = BREAST CANCER SCREENING] Future Scheduled 2022-03-04 COLONOSCOPY SCREENING [facility] Test 14:03:57 [code = COLONOSCOPY SCREENING] Future Scheduled 2022-03-04 HEPATITIS B VACCINES Met [facility] Test 14:03:57 (1 of 3 - Risk 3-dose series) [code = HEPATITIS B VACCINES (1 of 3 - Risk 3-dose series)] Future Scheduled 2022-03-04 COVID-19 VACCINE (3 - [facility] Test 14:03:57 Booster for Pfizer series) [code = COVID-19 VACCINE (3 - Booster for Pfizer series)] Future Scheduled 2022-03-04 65+ [facility] 14:03:57 VACCINE (4 - PPSV23 if available, else PCV20) [code = 65+ PNEUMOCOCCAL VACCINE (4 - PPSV23 if available, else PCV20)] Future Scheduled 2022-03-04 INFLUENZA VACCINE Method [facility] Test 14:03:57 [code = INFLUENZA VACCINE] Future Scheduled 2022-02-11 SHINGLES VACCINES (1 Met [facility] Test 13:39:12 of 2) [code = SHINGLES VACCINES (1 of 2)] Future Scheduled 2022-02-11 BREAST CANCER [facility] Test 13:39:12 SCREENING [code = BREAST CANCER SCREENING] Future Scheduled 2022-02-11 COLONOSCOPY SCREENING [facility] Test 13:39:12 [code = COLONOSCOPY SCREENING] Future Scheduled 2022-02-11 HEPATITIS B VACCINES Met [facility] Test 13:39:12 (1 of 3 - Risk 3-dose series) [code = HEPATITIS B VACCINES (1 of 3 - Risk 3-dose series)] Future Scheduled 2022-02-11 COVID-19 VACCINE (3 - Me [facility] Test 13:39:12 Booster for Pfizer series) [code = COVID-19 VACCINE (3 - Booster for Pfizer series)] Future Scheduled 2022-02-11 65+ [facility]AL [facility] Test 13:39:12 VACCINE (4 - PPSV23 or PCV20) [code = 65+ PNEUMOCOCCAL VACCINE (4 - PPSV23 or PCV20)] Future Scheduled 2022-02-11 INFLUENZA VACCINE Method [facility] Test 13:39:12 [code = INFLUENZA VACCINE] Future Scheduled 2022-01-29 SHINGLES VACCINES (1 Met [facility] Test 14:07:20 of 2) [code = SHINGLES VACCINES (1 of 2)] Future Scheduled 2022-01-29 BREAST CANCER [facility] Test 14:07:20 SCREENING [code = BREAST CANCER SCREENING] Future Scheduled 2022-01-29 COLONOSCOPY SCREENING [facility] Test 14:07:20 [code = COLONOSCOPY SCREENING] Future Scheduled 2022-01-29 HEPATITIS B VACCINES Met [facility] Test 14:07:20 (1 of 3 - Risk 3-dose series) [code = HEPATITIS B VACCINES (1 of 3 - Risk 3-dose series)] Future Scheduled 2022-01-29 COVID-19 VACCINE (3 - [facility] Test 14:07:20 Booster for Pfizer series) [code = COVID-19 VACCINE (3 - Booster for Pfizer series)] Future Scheduled 2022-01-29 65+ [facility]AL [facility] Test 14:07:20 VACCINE (4 - PPSV23 or PCV20) [code = 65+ PNEUMOCOCCAL VACCINE (4 - PPSV23 or PCV20)] Future Scheduled 2022-01-29 INFLUENZA VACCINE Method [facility] Test 14:07:20 [code = INFLUENZA VACCINE] Future Scheduled 2022-01-29 SHINGLES VACCINES (1 Met [facility] Test 14:07:20 of 2) [code = SHINGLES VACCINES (1 of 2)] Future Scheduled 2022-01-29 BREAST CANCER [facility] Test 14:07:20 SCREENING [code = BREAST CANCER SCREENING] Future Scheduled 2022-01-29 COLONOSCOPY SCREENING [facility] Test 14:07:20 [code = COLONOSCOPY SCREENING] Future Scheduled 2022-01-29 HEPATITIS B VACCINES Met [facility] Test 14:07:20 (1 of 3 - Risk 3-dose series) [code = HEPATITIS B VACCINES (1 of 3 - Risk 3-dose series)] Future Scheduled 2022-01-29 COVID-19 VACCINE (3 - Me [facility] Test 14:07:20 Booster for Pfizer series) [code = COVID-19 VACCINE (3 - Booster for Pfizer series)] Future Scheduled 2022-01-29 65+ PNEUMOCOCCAL [facility] Test 14:07:20 VACCINE (4 - PPSV23 or PCV20) [code = 65+ PNEUMOCOCCAL VACCINE (4 - PPSV23 or PCV20)] Future Scheduled 2022-01-29 INFLUENZA VACCINE Method [facility] Test 14:07:20 [code = INFLUENZA VACCINE] Future Scheduled 2022-01-29 SHINGLES VACCINES (1 Met [facility] Test 14:07:20 of 2) [code = SHINGLES VACCINES (1 of 2)] Future Scheduled 2022-01-29 BREAST CANCER [facility] Test 14:07:20 SCREENING [code = BREAST CANCER SCREENING] Future Scheduled 2022-01-29 COLONOSCOPY SCREENING [facility] Test 14:07:20 [code = COLONOSCOPY SCREENING] Future Scheduled 2022-01-29 HEPATITIS B VACCINES Met [facility] Test 14:07:20 (1 of 3 - Risk 3-dose series) [code = HEPATITIS B VACCINES (1 of 3 - Risk 3-dose series)] Future Scheduled 2022-01-29 COVID-19 VACCINE (3 - [facility] Test 14:07:20 Booster for Pfizer series) [code = COVID-19 VACCINE (3 - Booster for Pfizer series)] Future Scheduled 2022-01-29 65+ [facility]CCAL [facility] 14:07:20 VACCINE (4 - PPSV23 or PCV20) [code = 65+ PNEUMOCOCCAL VACCINE (4 - PPSV23 or PCV20)] Future Scheduled 2022-01-29 INFLUENZA VACCINE Method [facility] Test 14:07:20 [code = INFLUENZA VACCINE] Future Scheduled 2022-01-29 SHINGLES VACCINES (1 Met [facility] Test 14:07:20 of 2) [code = SHINGLES VACCINES (1 of 2)] Future Scheduled 2022-01-29 BREAST CANCER [facility] Test 14:07:20 SCREENING [code = BREAST CANCER SCREENING] Future Scheduled 2022-01-29 COLONOSCOPY SCREENING [facility] Test 14:07:20 [code = COLONOSCOPY SCREENING] Future Scheduled 2022-01-29 HEPATITIS B VACCINES [facility] Test 14:07:20 (1 of 3 - Risk 3-dose series) [code = HEPATITIS B VACCINES (1 of 3 - Risk 3-dose series)] Future Scheduled 2022-01-29 COVID-19 VACCINE (3 - [facility] Test 14:07:20 Booster for Pfizer series) [code = COVID-19 VACCINE (3 - Booster for Pfizer series)] Future Scheduled 2022-01-29 65+ [facility]CCAL [facility] Test 14:07:20 VACCINE (4 - PPSV23 or PCV20) [code = 65+ PNEUMOCOCCAL VACCINE (4 - PPSV23 or PCV20)] Future Scheduled 2022-01-29 INFLUENZA VACCINE Method [facility] Test 14:07:20 [code = INFLUENZA VACCINE] Future Scheduled 2022-01-20 SHINGLES VACCINES (1 Met [facility] Test 06:12:34 of 2) [code = SHINGLES VACCINES (1 of 2)] Future Scheduled 2022-01-20 Screening for [facility] Test 06:12:34 malignant neoplasm of cervix (procedure) [code = [id number]] Future Scheduled 2022-01-20 BREAST CANCER [facility] Test 06:12:34 SCREENING [code = BREAST CANCER SCREENING] Future Scheduled 2022-01-20 COLONOSCOPY SCREENING [facility] Test 06:12:34 [code = COLONOSCOPY SCREENING] Future Scheduled 2022-01-20 HEPATITIS B VACCINES Met [facility] Test 06:12:34 (1 of 3 - Risk 3-dose series) [code = HEPATITIS B VACCINES (1 of 3 - Risk 3-dose series)] Future Scheduled 2022-01-20 COVID-19 VACCINE (3 - [facility] Test 06:12:34 Booster for Pfizer series) [code = COVID-19 VACCINE (3 - Booster for Pfizer series)] Future Scheduled 2022-01-20 [facility] 06:12:34 VACCINE (4 - PPSV23 or PCV20) [code = 65+ PNEUMOCOCCAL VACCINE (4 - PPSV23 or PCV20)] Future Scheduled 2022-01-20 INFLUENZA VACCINE Method [facility] Test 06:12:34 [code = INFLUENZA VACCINE] Future Scheduled 2022-01-16 SHINGLES VACCINES (1 Met [facility] Test 12:09:25 of 2) [code = SHINGLES VACCINES (1 of 2)] Future Scheduled 2022-01-16 Screening for [facility] Test 12:09:25 malignant neoplasm of cervix (procedure) [code = [id number]] Future Scheduled 2022-01-16 BREAST CANCER [facility] Test 12:09:25 SCREENING [code = BREAST CANCER SCREENING] Future Scheduled 2022-01-16 COLONOSCOPY SCREENING [facility] Test 12:09:25 [code = COLONOSCOPY SCREENING] Future Scheduled 2022-01-16 HEPATITIS B VACCINES Met [facility] Test 12:09:25 (1 of 3 - Risk 3-dose series) [code = HEPATITIS B VACCINES (1 of 3 - Risk 3-dose series)] Future Scheduled 2022-01-16 COVID-19 VACCINE (3 - [facility] Test 12:09:25 Booster for Pfizer series) [code = COVID-19 VACCINE (3 - Booster for Pfizer series)] Future Scheduled 2022-01-16 65+ PNEUMOCOCCAL [facility] Test 12:09:25 VACCINE (4 - PPSV23 or PCV20) [code = 65+ PNEUMOCOCCAL VACCINE (4 - PPSV23 or PCV20)] Future Scheduled 2022-01-16 INFLUENZA VACCINE Method [facility] Test 12:09:25 [code = INFLUENZA VACCINE] Future Scheduled 2022-01-14 SHINGLES VACCINES (1 Met [facility] Test 04:11:46 of 2) [code = SHINGLES VACCINES (1 of 2)] Future Scheduled 2022-01-14 Screening for [facility] Test 04:11:46 malignant neoplasm of cervix (procedure) [code = [id number]] Future Scheduled 2022-01-14 BREAST CANCER [facility] Test 04:11:46 SCREENING [code = BREAST CANCER SCREENING] Future Scheduled 2022-01-14 COLONOSCOPY SCREENING [facility] Test 04:11:46 [code = COLONOSCOPY SCREENING] Future Scheduled 2022-01-14 HEPATITIS B VACCINES Met [facility] Test 04:11:46 (1 of 3 - Risk 3-dose series) [code = HEPATITIS B VACCINES (1 of 3 - Risk 3-dose series)] Future Scheduled 2022-01-14 COVID-19 VACCINE (3 - [facility] Test 04:11:46 Booster for Pfizer series) [code = COVID-19 VACCINE (3 - Booster for Pfizer series)] Future Scheduled 2022-01-14 65+ PNEUMOCOCCAL [facility] Test 04:11:46 VACCINE (4 - PPSV23 or PCV20) [code = 65+ PNEUMOCOCCAL VACCINE (4 - PPSV23 or PCV20)] Future Scheduled 2022-01-14 INFLUENZA VACCINE Method [facility] Test 04:11:46 [code = INFLUENZA VACCINE] Future Scheduled 2021-08-26 Screening for [facility] Test 13:02:23 malignant neoplasm of cervix (procedure) [code = [id number]] Future Scheduled 2021-08-26 BREAST CANCER [facility] Test 13:02:23 SCREENING [code = BREAST CANCER SCREENING] Future Scheduled 2021-08-26 COLONOSCOPY SCREENING [facility] Test 13:02:23 [code = COLONOSCOPY SCREENING] Future Scheduled 2021-08-26 Screening for [facility] Test 13:02:23 malignant neoplasm of lung (procedure) [code = [id number]] Future Scheduled 2021-08-26 SHINGLES VACCINES (#1) [facility] Test 13:02:23 [code = SHINGLES VACCINES (#1)] Future Scheduled 2021-08-26 COVID-19 VACCINE (3 - [facility] Test 13:02:23 Pfizer risk 4-dose series) [code = COVID-19 VACCINE (3 - Pfizer risk 4-dose series)] Future Scheduled 2021-08-26 65+ PNEUMOCOCCAL [facility] Test 13:02:23 VACCINE (4 of 4 - PPSV23) [code = 65+ PNEUMOCOCCAL VACCINE (4 of 4 - PPSV23)] Future Scheduled 2021-08-26 INFLUENZA VACCINE Method [facility] Test 13:02:23 [code = INFLUENZA VACCINE] Encounters Start End Encounter Admission Attending Care Care Encounter Source Date/Time Date/Time Type Type Clinicians Facility Department ID 2022-02-18 Outpatient CHW [facility]W [id number] [place] 14:30:[address] [place] [address] and [facility] 2021-07-14 Outpatient SADIKOVIC, [facility] [id number] [place] 09:33:51 ELAN [facility] 2021-06-02 Outpatient HEMATPOUR, [facility] [id number] [place] 13:58:59 KHASHAYAR [facility] 2021-04-28 Outpatient HEMATPOUR, [facility] [id number] [place] 11:21:22 KHASHAYAR [facility]alt [facility] 2021-03-20 Emergency [facility] [id number] Univers 16:07:40 ity [facility] 2020-12-12 Outpatient HEMATPOUR, [facility] [id number] [place] 08:16:46 KHASHAYAR Healt h 2020-10-31 Outpatient HEMATPOUR, [facility] [id number] [place] [facility] 2020-[facility]30 Outpatient HEMATPOUR, [facility] [id number] [place] 13:16:03 KHASHAYAR Healt h 2022-05-20 2022-05-20 Telephone [place], [facility] 1.2.840.114 [id number] Univers 00:00:00 00:00:00 [facility] [id number] i ty [place] [id number] [facility] [address] 2022-05-10 2022-05-10 Emergency X BYRON, [facility] ERT [id number] Univers 10:30:00 16:31:00 HOME ity [facility] 2022-05-10 2022-05-10 Emergency Byron, TRAUMA 1.2.840.114 [id number] Univers 10:30:00 16:31:00 Home B CENTER [id number] [place] [id number] [facility] [address] 2022-05-10 2022-05-10 Telephone [place], UNIVERSIT 1.2.840.114 [id number] Univers 00:00:00 00:00:00 [facility] [id number] i [place] [id number] [address] 2022-05-08 2022-05-08 Emergency [facility] [id number] Univers 16:18:00 18:42:00 THERESA charlie [facility] 2022-05-08 2022-05-08 Emergency [facility] 1.2.840.114 [id number] Univers 16:18:00 18:42:00 Theresa BULLOCK 350.1.13.10 ity [facility].7.2.[id number] [address] 2022-05-07 2022-05-07 Telephone [facility] 1.2.840.114 [id number] Univers 00:00:00 00:00:00 [facility] 350.1.13.10 i [place] [id number] [address] 2022-05-06 2022-05-06 Emergency [facility] [id number] Univers 14:13:00 18:19:00 ANETTE barbosa [facility] 2022-05-06 2022-05-06 [facility] 1.2.837.898 [id number] Univers 14:13:00 18:19:00 [place] 350.1.13.10 ity [facility] 4.2.7.2.686 [facility] [id number] [address] 2022-05-06 2022-05-06 Telephone [facility] 1.2.840.114 [id number] Univers 00:00:00 00:00:00 [facility] 350.1.13.10 i [place] [id number] [address] 2022-04-22 2022-04-22 Emergency David [facility] [id number] Univers 13:55:00 17:00:00 PAULETTE [facility] 2022-04-22 2022-04-22 Emergency [facility] 1.2.315.202 [id number] Univers 13:55:00 17:00:00 Paulette BULLOCK 350.1.13.10 i ty of [place] 4.2.7.2.686 [facility] [phone] [place] [address] [place] 2022-04-07 2022-04-07 Outpatient R [facility] [id number] Univers 20:40:00 20:40:00 ATTENDING ity [facility] 2022-04-07 2022-04-07 Telephone Beltran, 1.2.840.6 [id number] Univers 00:00:00 00:00:00 Robbi Hairston 08525.1.1 i ty of 3.104.2.7 [place] .3.783133 Medica l .8 [place] 2022-03-05 2022-03-05 Metal Sprayer Santiago Cardenas 1.2.840.1 [id number] Univers 13:45:00 14:00:00 Visit [facility] 45504.1.1 ity of 3.104.2.7 [place] .3.344788 Medica l .8 [place] 2022-03-05 2022-03-05 Office JOSÉ ANTONIO Cardenas 1.2.747.622 [id number] Univers 13:00:00 13:30:00 Visit Santiago [facility] 350.1.13.10 i ty of [facility] 4.2.7.2.686 [facility] [id number] [place] [address] [place] 2022-03-05 2022-03-05 Outpatient R [facility] [id number] Univers 13:00:00 13:00:00 SANTIAGO barbosa [facility] 2022-02-26 2022-02-26 Outpatient R [facility] [id number] Univers 08:30:00 08:30:00 SANTIAGO barbosa [facility] 2022-02-26 2022-02-26 Outpatient R [facility] [id number] Univers 08:30:00 08:30:00 SANTIAGO charlie [facility] 2022-02-17 2022-02-17 Transition Stevo, 1.2.840.5 [id number] Univers 00:00:00 00:00:00 of Care Isaias Arredondo 75891.1.1 it y of 3.104.2.7 [place] .3.998998 Medica l .8 Branch 2022-02-10 2022-02-16 Inpatient X FRANK [facility] [id number] Univers 22:59:00 19:27:00 PETER ity of [facility] [place] [facility] 2022-02-10 2022-02-16 [facility] Reilly Means 1.2.840.1 [id number] Univers 22:59:00 19:27:00 Encounter Ofe Shields 25304.1.1 ity of [place] 3.[place].2.7 [place] .3.140627 Medica l .8 Branch 2022-02-11 2022-02-11 Telephone East, 1.2.840.8 [id number] Univers 00:00:00 00:00:00 Santiago 37801.1.1 ity of 3.104.2.7 [place] .3.977131 Medica l .8 Branch 2022-02-10 2022-02-10 Travel 1.2.840.1 1.2.655.550 [id number] Univers 00:00:00 00:00:00 65009.1.1 350.1.13.10 ity of 3.104.2.7 [place].3.698 [place] .3.261609 084.8 Medica l .8 Branch 2022-01-30 2022-01-30 Telephone East, 1.2.840.2 [id number] Univers 00:00:00 00:00:00 [place] 76177.1.1 ity of 3.104.2.7 [place] .3.639001 Medica l .8 Branch 2022-01-06 2022-01-06 Orders Doctor FERMIN 1.2.840.114 [id number] Univers 00:00:00 00:00:00 Only Unassigned, JACKELINE 350.1.13.10 ity of [facility] 4.2.7.2.686 Yomi as [id number] [facility] porfirio 009 [place] 2021-12-25 2021-12-25 Orders Doctor FERMIN 1.2.840.114 [id number] Univers 00:00:00 00:00:00 Only Unassigned, JACKELINE 350.1.13.10 ity of [facility] 4.2.7.2.686 Yomi as [id number] [facility] [address] 2021-12-12 2021-12-13 Emergency X Bill COLES [facility] ERT [id number] Univers 23:53:00 01:52:00 ity of [facility] [place] [facility] 2021-12-12 2021-12-13 Emergency Bill Coles [facility] 1.2.840.114 [id number] Univers 23:53:00 01:52:00 Kiersten BULLOCK 350.1.13.10 i ty [place] [id number] [facility] [address] 2021-11-20 2021-11-20 Metal Sprayer [facility] UN[facility]ERS[facility] 1.2.840.114 [id number] Univers 09:45:00 10:00:00 Visit [facility] 350.1.13.10 ity of [facility] 4.2.7.2.[place] [id number] [facility] [address] 2021-11-20 2021-11-20 Office [facility] 1.2.192.518 [id number] Univers 08:30:00 09:00:00 Visit [facility] 350.1.13.10 i ty of [facility] 4[place] [id number] [facility] [address] 2021-11-20 2021-11-20 Outpatient R [facility] [id number] Univers 08:30:00 08:30:00 [facility] 2021-11-20 2021-11-20 Outpatient R [facility] [id number] Univers 08:30:00 08:30:00 [facility] 2021-11-20 2021-11-20 Outpatient R [facility] [id number] Univers 08:30:00 08:30:00 [facility] 2021-11-20 2021-11-20 Outpatient R [facility] [id number] Univers 08:30:00 08:30:00 [facility] 2021-10-24 2021-10-24 Emergency X ESVIN, [facility] ERT [id number] Univers 16:27:00 22:26:00 CHARITY barbosa [facility] 2021-10-24 2021-10-24 Emergency X ESVIN, [facility] ERT [id number] Univers 16:27:00 22:26:00 CHARITY barbosa [facility] 2021-10-24 2021-10-24 Emergency Reilly Means [facility] 1.2.840. 114 [id number] Univers 16:27:00 22:26:00 Charity Mcallister 350.1.13.10 ity [facility] 4.2.7.2.686 [facility] [id number] [address] 2021-10-23 2021-10-24 Emergency X ESVIN, [facility] ERT [id number] Univers 20:22:00 02:57:00 CHARITY barbosa [facility] 2021-10-23 2021-10-24 [facility] 1.2.687.336 [id number] Univers 20:22:00 02:57:00 [facility] 350.1.13.10 ity [facility] 4.2.7.2.686 [facility] [id number] [address] 2021-09-07 2021-09-07 [facility] [id number] Univers 08:00:00 08:00:00 GADIEL vogel clark [facility] [place] [facility] 2021-09-07 2021-09-07 Outpatient R SELF, [facility] [id number] Univers 08:00:00 08:00:00 GADIEL rodas [facility] [place] [facility] 2021-08-21 2021-08-21 Outpatient R [facility] [id number] [address] 10:45:00 10:45:00 SANTIAGO charlie [facility] 2021-08-21 2021-08-21 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 Spr[employer] Santiago Cardenas [id number] Univers 10:45:00 10:45:00 Visit [facility] [id number] ity of [id number] [place] [id number] Medica l .8 Branch 2021-08-21 2021-08-21 Office [place], [id number] Univers 08:30:00 09:00:00 Visit Santiago 12851.1.1 ity of 3.104.2.7 [place] .3.214221 Medica l .8 [place] 2021-08-21 2021-08-21 Office East, UNIVERSIT 1.2.365.609 3277 8516 Univers 08:30:00 09:00:00 Visit [facility] 350.1.13.10 i ty of CLINICS 4.2.7.2.686 [place] 652.1799927 [facility] porfirio 089 [place] 2021-08-21 2021-08-21 Outpatient [facility] [id number] Univers 08:30:00 08:30:00 [place] ity of [facility] [place] [facility] 2021-08-21 2021-08-21 Travel 1.2.840.1 1.2.088.963 5683 3865 Univers 00:00:00 00:00:00 62557.1.1 350.1.13.10 ity of 3.104.2.7 4.[place].7.3.698 [place] .3.821975 084.8 Medica l .8 [place] 2021-08-14 2021-08-14 Telephone East, 1.2.840.0 [id number] Univers 00:00:00 00:00:00 Santiago 95603.1.1 ity of 3.104.2.7 [place] .3.774098 Medica l .8 Branch 2021-08-13 2021-08-13 Telephone East, 1.2.840.4 [id number] 922 07145 Univers 00:00:00 00:00:00 Santiago 69706.1.1 ity of 3.104.2.7 [place] .3.801292 Medica l .8 [place] 2021-08-11 2021-08-11 Outpatient R [facility] [id number] Univers 08:00:00 08:00:00 [facility] 2021-08-05 2021-08-05 Inpatient EDUARDO LealCL OUTD [id number] [facility] 05:24:00 05:24:00 Mike 31 [facility] 2021-07-20 2021-07-20 Outpatient R [facility] [id number] Univers 10:00:00 10:00:00 [facility] 2021-07-14 2021-07-14 Office Pankaj, UTP 6400 1.2.840.114 13 [id number] [place] 08:45:00 09:34:[address] 350.1.13.58 Health 9.2.7.2.686 [id number] 1 2021-07-09 2021-07-09 Telephone [place], UTP 6400 1.2.840.114 [id number] [place] 00:00:00 00:00:[address] 350.1.13.58 Health 9.2.7.2.686 [id number] 1 2021-07-09 2021-07-09 Telephone [place], UTP 6400 1.2.840.114 [id number] [place] 00:00:00 00:00:[address] 350.1.13.58 Health 9.2.7.2.686 [id number] 1 2021-07-03 2021-07-03 Outpatient R [facility] [id number] Univers 08:00:00 08:00:00 [facility] 2021-06-17 2021-06-17 Inpatient EDUARDO LealCL INTE.02 [id number] [facility] 10:56:00 14:36:00 Mike 47 [facility] 2021-06-15 2021-06-15 Outpatient R SELF, [facility] [id number] Univers 10:15:00 11:07:21 GADIEL rodas [facility] [place] [facility] 2021-06-15 2021-06-15 Outpatient R SELF, [facility] [id number] Univers 10:15:00 10:15:00 GADIEL rodas [facility] [place] [facility] 2021-06-15 2021-06-15 Outpatient R SELF, [facility] [id number] Univers 10:15:00 10:15:00 GADEIL raheemcharlie rodas [facility] [place] [facility] 2021-06-15 2021-06-15 Orders Doctor 1.2.840.1 [id number] [id number] Univers 00:00:00 00:00:00 Only Unassigned, 88142.1.[address] [place] 3.104.2.7 [place] .3.665825 Medica l .8 [place] 2021-06-15 2021-06-15 Travel 1.2.840.1 1.2.419.062 3999 7719 Univers 00:00:00 00:00:00 98619.1.1 350.1.13.10 ity of 3.104.2.7 4.2.7.3.698 [place] .3.300147 084.8 Medica l .8 [place] 2021-06-11 2021-06-11 Refill [facility], UNIVERSIT 1.2.452.116 3533 9185 Univers 00:00:00 00:00:00 [facility] 350.1.13.10 i ty of CL[place]ICS [place].2.[place] [id number] [address] 2021-06-11 2021-06-11 Refill East, 1.2.840.5 [id number] 185 Univers 00:00:00 00:00:00 Santiago 74873.1.1 ity of 3.104.2.7 [place] .3.563799 Medica l .8 [place] 2021-06-05 2021-06-05 Outpatient R EAST, [facility] [id number] Univers 09:00:00 09:00:00 [place] ity of [facility] [place] [facility] 2021-06-02 2021-06-02 Telephone East, [facility] 1.2.840.114 90 [id number] Univers 00:00:00 00:00:00 [facility] 350.1.13.10 i ty of CL[place].2.686 [place] [id number] [address] 2021-06-022021-06-02 Telephone East, 1.2.840.5 [id number] 903 30541 Univers 00:00:00 00:00:00 Santiago 46156.1.1 ity of 3.104.2.7 [place] .3.397719 Medica l .8 Branch 2021-05-29 2021-05-29 Telephone East, 1.2.840.1 [id number] 902 [id number] Univers 00:00:00 00:00:00 Santiago 25633.1.1 ity of 3.104.2.7 [place] .3.457784 Medica l .8 Branch 2021-05-29 2021-05-29 Telephone East, 1.2.840.4 [id number] 902 03125 Univers 00:00:00 00:00:00 Santiago 08005.1.1 ity of 3.104.2.7 [place] .3.713146 Medica l .8 [place] 2021-05-25 2021-05-25 Outpatient R RODO, [facility] [id number] Univers 08:00:00 08:00:00 GADIEL barbosa o f [facility] [place] [facility] 2021-04-29 2021-04-29 [facility] [id number] Univers 08:00:00 08:00:00 NIKOLAI barbosa [facility] 2021-04-28 2021-04-28 Telephone [place], UTP 6400 1.2.840.114 [id number] [place] 00:00:00 00:00:[address] 350.1.13.58 Health 9.2.7.2.686 [id number] 1 2021-04-28 2021-04-28 Telephone Jailyn, 1.2.840.4 [id number] 21 [id number] Methodi 00:00:00 00:00:[address] 3.430.2.7 Hospit a .3.486531 l .8 2021-03-31 2021-03-31 Orders Carol Ann, 1.2.840.1 [id number] 21 [id number] Methodi 00:00:00 00:00:00 Only Sarai Lieberman 37547.1.1 979 s t 3.430.2.7 Hospit a .3.340456 l .8 2021-03-30 2021-03-30 Outpatient R RODO, [facility] [id number] Univers 08:45:00 08:45:00 GADIEL itcharlie o f [facility] [place] [facility] 2021-03-24 2021-03-24 Telephone Jailyn, 1.2.840.5 [id number] 21 [id number] Methodi 00:00:00 00:00:[address] 3.430.2.7 Hospit a .3.652383 l .8 2021-02-13 2021-02-13 Telephone Ronald, 1.2.840.0 [id number] 876 67512 Univers 00:00:00 00:00:00 Santiago 26641.1.1 ity of 3.104.2.7 [place] .3.946997 Medica l .8 [place] 2021-01-28 2021-01-28 Outpatient R LALA, [facility] [id number] Univers 08:45:00 09:37:00 NIKOLAI barbosa of [facility] [place] [facility] 2021-01-28 2021-01-28 Travel 1.2.840.1 1.2.007.613 9814 9777 Univers 00:00:00 00:00:00 11418.1.1 350.1.13.10 ity of 3.104.2.7 4.[place].7.3.698 [place] .3.049727 084.8 Medica l .8 [place] 2021-01-19 2021-01-19 Telephone Pelletier, 1.2.840.1 [id number] 2100 247454 Methodi 00:00:00 00:00:[address] 3.430.2.7 Hospit a .3.908858 l .8 2021-01-04 2021-01-04 Letter Shelia, 1.2.840.1 [id number] 14287 696 Univers 00:00:00 00:00:00 (Out) Dagoberto Peterson 78864.1.1 ity of 3.104.2.7 [place] .3.011263 Medica l .8 Branch 2021-01-04 2021-01-04 Dmitry Bass, 1.2.840.2 [id number] 78696 696 Univers 00:00:00 00:00:00 (Out) Dagoberto H 31435.1.1 ity of 3.104.2.7 [place] .3.861339 Medica l .8 Branch 2021-01-03 2021-01-03 Dmitry Bass, 1.2.840.1 [id number] 59957 790 Univers 00:00:00 00:00:00 (Out) Dagoberto H 55515.1.1 ity of 3.104.2.7 [place] .3.491324 Medica l .8 Branch 2021-01-03 2021-01-03 Dmitry Bass, 1.2.840.3 [id number] 50805 790 Univers 00:00:00 00:00:00 (Out) Dagoberto H 11188.1.1 ity of 3.104.2.7 [place] .3.420936 Medica l .8 [place] 2021-01-02 2021-01-02 Outpatient R [facility] [id number] Univers 13:40:00 13:40:00 ity of [facility] [place] [facility] 2021-01-02 2021-01-02 Laboratory Cuba Franks 1.2.840.6 [id number] [id number] Univers 12:14:13 12:57:34 Only Lab, [facility] [place] 79146.1.1 ity of 3.104.2.7 [place] .3.090314 Medica l .8 Branch 2021-01-02 2021-01-02 Laboratory Cuba Franks 1.2.840.6 [id number] [id number] Univers 12:14:13 12:57:34 Only Lab, [facility] Fam Pob I 84057.1.1 ity of 3.104.2.7 [place] .3.389452 Medica l .8 Branch 2021-01-02 2021-01-02 Travel 1.2.840.1 1.2.947.178 0756 2306 Univers 00:00:00 00:00:00 48010.1.1 350.1.13.10 ity of 3.104.2.7 4.2.7.3.698 [place] .3.062673 084.8 Medica l .8 Branch 2021-01-02 2021-01-02 Letter Doctor 1.2.840.0 [id number] 13273 948 Univers 00:00:00 00:00:00 (Out) Unassigned, 21760.1.[address] [place] 3.104.2.7 [place] .3.975279 Medica l .8 Branch 2021-01-02 2021-01-02 Letter Doctor 1.2.840.0 [id number] 39617 946 Univers 00:00:00 00:00:00 (Out) Unassigned, 62127.1.[address] [place] 3.104.2.7 [place] .3.801884 Medica l .8 Branch 2021-01-02 2021-01-02 Travel 1.2.840.1 1.2.022.837 5498 2306 Univers 00:00:00 00:00:00 98344.1.1 350.1.13.10 ity of 3.104.2.7 4.2.7.3.698 [place] .3.601819 084.8 Medica l .8 Branch 2021-01-02 2021-01-02 Letter Doctor 1.2.840.9 [id number] 43891 948 Univers 00:00:00 00:00:00 (Out) Unassigned, 47510.1.1 [address] [place] 3.104.2.7 [place] .3.550726 Medica l .8 Branch 2021-01-02 2021-01-02 Letter Doctor 1.2.840.0 [id number] 91370 946 Univers 00:00:00 00:00:00 (Out) Unassigned, 20161.1.[address] [place] 3.104.2.7 [place] .3.575328 Medica l .8 Branch 2020-12-22 2020-12-22 Telephone Devin, 1.2.840.8 [id number] 862 60841 [facility] 00:00:00 00:00:00 Rossandynda R 64326.1.1 i ty of 3.104.2.7 [place] .3.650483 Medica l .8 Branch 2020-12-22 2020-12-22 Telephone Devin, 1.2.840.2 [id number] 862 56689 [facility] 00:00:00 00:00:00 Rossandynda R 07659.1.1 i ty of 3.104.2.7 [place] .3.461807 Medica l .8 [place] 2020-12-12 2020-12-12 Office [place], UTP 6400 1.2.840.114 12 [id number] [place] 07:42:02 08:18:[address] 350.1.13.58 Health 9.2.7.2.686 [id number] 1 2020-12-12 2020-12-12 Office [place], UTP 6400 1.2.840.114 12 [id number] 07:42:02 08:18:[address] 350.1.13.58 9.2.7.2.686 600.5947294 1 2020-12-09 2020-12-09 Telephone Carol Ann, 1.2.840.1 [id number] Methodi 00:00:00 00:00:00 Sarai CorbinChelsie 34331.1.1 316 s t 3.430.2.7 Hospit a .3.321609 l .8 2020-12-08 2020-12-08 [facility], 1.2.840.1 [id number] 2100 755846 Methodi 12:35:54 23:59:00 Encounter Ray 70228.1.[address] 3.430.2.7 Hospit a .3.616292 l .8 2020-12-08 2020-12-08 [facility], 1.2.840.1 [id number] 00172 16318 Methodi 17:25:00 17:30:[address] 3.430.2.7 Hospit a .3.526186 l .8 2020-12-08 2020-12-08 Office Jailyn, 1.2.840.1 [id number] 15875 03674 Methodi 10:30:00 11:39:56 Visit Ray 92161.1.[address] 3.430.2.7 Hospit a .3.916505 l .8 2020-12-08 2020-12-08 Travel 1.2.840.1 1.2.965.321 4043 616252 Methodi 00:00:00 00:00:[address] 3.430.2.7 0.2.7.3.698 Ho spita .3.736520 084.8 l .8 2020-12-02 2020-12-02 Metal Sprayer Santiago Cardenas 1.2.840.1 [id number] Univers 10:20:06 10:36:19 Visit [facility] 08773.1.1 ity of 3.104.2.7 [place] .3.431254 Medica l .8 Branch 2020-12-02 2020-12-02 Metal Sprayer Santiago Cardenas 1.2.840.1 [id number] [facility] 10:20:06 10:36:19 Visit c-Lab 15209.1.1 ity of 3.104.2.7 [place] .3.406436 Medica l .8 Branch 2020-12-02 2020-12-02 Metal Sprayer [facility] UNIVERSIT 1.2.840.114 8 [id number] 10:20:06 10:36:19 [facility] 350.1.13.10 CLINICS 4.2.7.2.686 647.3982938 316 2020-12-02 2020-12-02 Office Qi Cardenas2.840.9 [id number] 71258 528 Univers 08:31:37 09:01:37 Visit Santiago 24061.1.1 ity of 3.104.2.7 [place] .3.921735 Medica l .8 Branch 2020-12-02 2020-12-02 Outpatient R RONALD [facility] [id number] Univers 09:00:00 09:00:00 [place] ity of [facility] [place] [facility] 2020-11-25 2020-11-25 Office Devin, 1.2.840.0 [id number] 69652 865 Univers 11:06:30 11:58:14 Visit Robbi Hairston 34910.1.1 i ty of 3.104.2.7 [place] .3.445452 Medica l .8 [place] 2020-11-25 2020-11-25 Office Devin, 1.2.840.8 [id number] 80567 865 Univers 11:06:30 11:58:14 Visit Robbi R 24266.1.1 i ty of 3.104.2.7 [place] .3.078247 Medica l .8 [place] 2020-11-25 2020-11-25 Office Devin, [facility] 1.2.840.114 [id number] 11:06:30 11:58:14 Visit Devinaleshia Hairston TELEGRAPH SERVICE CLERK 350.1.13.10 [facility] 4.2.7.2.686 MATERNAL [id number] & CHILD [address] [place] [address] 2020-11-25 2020-11-25 Outpatient R [facility] [id number] 288 Univers 11:00:00 11:00:00 ity of [facility] [place] [facility] 2020-11-25 2020-11-25 Telephone Devin, 1.2.840.3 [id number] 855 41639 Univers 00:00:00 00:00:00 Robbi Hairston 83503.1.1 i ty of 3.104.2.7 [place] .3.680775 Medica l .8 [place] 2020-11-25 2020-11-25 Refill [facility], 1.2.840.9 [id number] 78942 592 Univers 00:00:00 00:00:00 Santiago 34563.1.1 ity of 3.104.2.7 [place] .3.346614 Medica l .8 [place] 2020-11-25 2020-11-25 Travel 1.2.840.1 1.2.738.064 1622 0247 Univers 00:00:00 00:00:00 25846.1.1 350.1.13.10 ity of 3.104.2.7 4.2.7.3.698 [place] .3.863284 084.8 Medica l .8 Branch 2020-11-25 2020-11-25 Orders Doctor 1.2.840.4 [id number] 06598 064 Univers 00:00:00 00:00:00 Only Unassigned, 10024.1.[address] [place] 3.104.2.7 [place] .3.329316 Medica l .8 Branch 2020-11-25 2020-11-25 Telephone Beltran, 1.2.840.4 [id number] 855 98179 Univers 00:00:00 00:00:00 Robbi Hairston 41264.1.1 i ty of 3.104.2.7 [place] .3.936589 Medica l .8 Branch 2020-11-25 2020-11-25 Refill East, 1.2.840.6 [id number] 84278 592 Univers 00:00:00 00:00:00 Santiago 09205.1.1 ity of 3.104.2.7 [place] .3.058672 Medica l .8 Branch 2020-11-25 2020-11-25 Travel 1.2.840.1 1.2.990.852 8711 0247 Univers 00:00:00 00:00:00 02367.1.1 350.1.13.10 ity of 3.104.2.7 4.2.7.3.698 [place] .3.371878 084.8 Medica l .8 Branch 2020-11-25 2020-11-25 Orders Doctor 1.2.840.3 [id number] 25786 064 Univers 00:00:00 00:00:00 Only Unassigned, 05667.1.[address] [place] 3.104.2.7 [place] .3.730839 Medica l .8 Branch 2020-11-25 2020-11-25 Refill [facility], UNIVERSIT 1.2.369.345 1773 4592 00:00:00 00:00:00 [facility] 350.1.13.10 CLINICS 4.2.7.2.686 976.3747266 089 2020-11-25 2020-11-25 [facility] 1.2.955.311 9750 0821 00:00:00 00:00:00 Robbi Marika TELEGRAPH SERVICE CLERK 350.1.13.10 [facility] 4.2.7.2.686 MATERNAL 340.0529701 & CHILD [address] [place] [address] 2020-11-14 2020-11-14 Abstract Clark, 1.2.840.1 [id number] 21703 86042 Methodi 00:00:00 00:00:[address] 3.430.2.7 Hospit a .3.543363 l .8 2020-11-14 2020-11-14 Telephone Clark, 1.2.840.1 [id number] 2100 997553 Methodi 00:00:00 00:00:[address] 3.430.2.7 Hospit a .3.697425 l .8 2020-11-12 2020-11-12 Outpatient R [facility] [id number] 323 Univers 08:30:00 08:30:00 SANTIAGO barbosa [facility] 2020-11-07 2020-11-07 Telephone Agustina Ortiz 6400 1.2.840.11 4 [id number] [place] 00:00:00 00:00:[address] 350.1.13.58 Health 9.2.7.2.686 [id number] 1 2020-11-07 2020-11-07 Telephone KIMBERLEY Ortiz 6400 1.2.840.114 124 [id number] 00:00:00 00:00:[address] 350.1.13.58 9.2.7.2.686 [id number] 1 2020-10-31 2020-10-31 Office KIMBERLEY [place]ton 6400 1.2.840.114 12 [id number] [place] 07:54:00 09:45:[address] 350.1.13.58 Health 9.2.7.2.686 391.7174851 1 2020-10-30 2020-10-30 Abstract Rody Maguire UTP 6400 1.2.840.1 14 [id number] [place] 00:00:00 00:00:[address] 350.1.13.58 Health 9.2.7.2.686 506.2193407 1 2020-10-29 2020-10-29 Refill [place], 1.2.840.7 [id number] 83628 400 Univers 00:00:00 00:00:00 Santiago 74754.1.1 ity of 3.104.2.7 [place] .3.567015 Medica l .8 [place] 2020-10-29 2020-10-29 Refill [place], 1.2.840.0 [id number] 60433 400 Univers 00:00:00 00:00:00 Santiago 38809.1.1 ity of 3.104.2.7 [place] .3.977766 Medica l .8 [place] 2020-10-27 2020-10-27 Telephone Chidimasa, 1.2.840.7 [id number] 21 [id number] Methodi 00:00:00 00:00:[address] 3.430.2.7 Hospit a .3.220035 l .8 2020-10-24 2020-10-24 Telephone Rodas, 1.2.840.1 [id number] 2100 254982 Methodi 00:00:00 00:00:[address] 3.430.2.7 Hospit a .3.885575 l .8 2020-10-22 2020-10-22 Outpatient R SELF, [facility] [id number] 868 Univers 13:00:00 13:00:00 GADIEL rodas [facility] [place] [facility] 2020-10-22 2020-10-22 Travel 1.2.840.1 1.2.480.965 2424 3839 Univers 00:00:00 00:00:00 73414.1.1 350.1.13.10 ity of 3.104.2.7 4.2.7.3.698 [place] .3.362734 084.8 Medica l .8 Branch 2020-10-22 2020-10-22 Travel 1.2.840.1 1.2.689.676 3017 3839 [facility] 00:00:00 00:00:00 50743.1.1 350.1.13.10 ity of 3.104.2.7 4.2.7.3.698 [place] .3.609746 084.8 Medica l .8 Branch 2020-10-13 2020-10-13 Outpatient R SELF, [facility] [id number] Univers 08:45:00 08:45:00 GADIEL barbosa o f [facility] [place] [facility] 2020-10-06 2020-10-12 Telemedici [facility], 1.2.840.1 [id number] Methodi 15:30:00 00:08:46 ne Ray 96034.1.[address] 3.430.2.7 Hospit a .3.332030 l .8 2020-09-30 2020-09-30 [facility], 1.2.840.6 [id number] Methodi 00:00:00 00:00:[address] 3.430.2.7 Hospit a .3.980449 l .8 2020-09-21 2020-09-21 Travel 1.2.840.1 1.2.490.615 3061 185321 Methodi 00:00:00 00:00:[address] 3.430.2.7 0.2.7.3.698 Ho spita .3.977727 084.8 l .8 2020-09-06 2020-09-06 [facility] 1.2.840.1 [id number] 25482 04977 Methodi 17:42:30 23:59:[address] 3.430.2.7 Hospit a .3.453028 l .8 2020-09-06 2020-09-06 [facility], 1.2.840.1 [id number] 2099 143040 Methodi 16:50:00 17:41:00 Encounter Ray [address]64.1.[address] 3.430.2.7 Hospit a .3.976054 l .8 2020-09-05 2020-09-05 Hospital [facility], 1.2.840.1 [id number] 2099 838389 Methodi 09:17:00 19:45:00 Encounter Ray [address]11.1.[address] 3.430.2.7 Hospit a .3.791915 l .8 2020-09-05 2020-09-05 Surgery [facility], 1.2.840.1 [id number] 01845 05239 Methodi 11:30:00 13:15:[address] 3.430.2.7 Hospit a .3.028519 l .8 2020-09-05 2020-09-05 Anesthesia Remigio, 1.2.840.1 [id number] 275 6076995 Methodi 11:27:00 12:20:00 Event Johnathanthi 15410.1.1 243 s t V. 3.430.2.7 Hospit a .3.194706 l .8 2020-09-05 2020-09-05 Travel 1.2.840.1 1.2.332.965 7969 691742 Methodi 00:00:00 00:00:[address] 3.430.2.7 0.2.7.3.698 Ho spita .3.813587 084.8 l .8 2020-09-04 2020-09-04 Telephone Meisenbach, 1.2.840.1 [id number] Methodi 00:00:00 00:00:00 Sarai M. 47046.1.1 762 s t 3.430.2.7 Hospit a .3.567447 l .8 2020-09-02 2020-09-02 Telephone Meisenbach, 1.2.840.5 [id number] Methodi 00:00:00 00:00:00 Sarai M. 37842.1.1 344 s t 3.430.2.7 Hospit a .3.025670 l .8 2020-08-29 2020-08-30 [facility] [id number] 275 [facility] 10:20:00 14:10:00 Outpatient r Mantee 00 [facility] 2020-08-29 2020-08-30 Outpatient HEMATPOUR, [facility] CAR 7500 [facility] 05:20:00 09:10:00 BEVERLY 2020-08-06 2020-08-06 Office [place], 1.2.840.2 [id number] 416 Univers 08:03:23 09:17:49 Visit Santiago 24865.1.1 ity of 3.104.2.7 [place] .3.324376 Medica l .8 [place] 2020-08-06 2020-08-06 Outpatient R [facility] [id number] Univers 08:30:00 08:30:00 SANTIAGO barbosa of [facility] [place] [facility] 2020-07-14 2020-07-14 Outpatient R [facility] [id number] Univers 09:30:00 09:30:00 GADIEL barbosa o clark [facility] [place] [facility] 2020-07-14 2020-07-14 Travel 1.2.840.1 1.2.200.699 6792 2575 Univers 00:00:00 00:00:00 25403.1.1 350.1.13.10 ity of 3.104.2.7 4.2.7.3.698 [place] .3.440901 084.8 Medica l .8 [place] 2020-07-14 2020-07-14 Orders Doctor 1.2.840.2 [id number] 309 Univers 00:00:00 00:00:00 Only Unassigned, 79000.1.1 it[address] [place] 3.104.2.7 [place] .3.345884 Medica l .8 [place] 2020-06-16 2020-06-16 [facility] [id number] Univers 08:00:00 08:00:00 GADIEL barbosa o f [facility] [place] [facility] 2020-06-06 2020-06-06 Telephone [place], 1.2.840.9 [id number] Univers 00:00:00 00:00:00 [place] 67311.1.1 ity of 3.104.2.7 [place] .3.980378 Medica l .8 [place] 2020-06-04 2020-06-04 Metal Sprayer [place] Cardenas 1.2.840.1 [id number] Univers 09:31:58 09:40:12 Visit [facility] 15684.1.1 ity of 3.104.2.7 [place] .3.958440 Medica l .8 [place] 2020-06-04 2020-06-04 Office FRANCO Cardenas 1.2.806.788 [id number] Univers 08:13:41 09:28:25 Visit [place] [facility] 350.1.13.10 i ty of CLINICS 4.2.7.2.686 Richi bach [id number] [facility] porfirio 089 [place] 2020-06-04 2020-06-04 Outpatient R [facility] [id number] Univers 08:30:00 08:30:00 [place] ity of [facility] [place] [facility] 2020-06-04 2020-06-04 Orders Doctor 1.2.840.4 [id number] Univers 00:00:00 00:00:00 Only Unassigned, 95750.1.[address] [place] 3.104.2.7 [place] .3.518431 Medica l .8 [place] 2020-05-19 2020-05-19 Telephone [place], 1.2.840.6 [id number] Univers 00:00:00 00:00:00 [place] 78067.1.1 ity of 3.104.2.7 [place] .3.998086 Medica l .8 [place] 2020-04-24 2020-04-24 Telephone [place], 1.2.840.4 [id number] Univers 00:00:00 00:00:00 [place] 80182.1.1 ity of 3.104.2.7 [place] .3.667847 Medica l .8 [place] 2020-04-14 2020-04-14 Outpatient R [place], [facility] [id number] Univers 09:00:00 09:00:00 [place] ity [facility] 2020-04-14 2020-04-14 Telephone [place], 1.2.840.6 [id number] Univers 00:00:00 00:00:00 [place] 72944.1.1 ity of 3.104.2.7 [place] .3.939638 Medica l .8 [place] 2020-03-31 2020-03-31 Outpatient R [place], [facility] [id number] Univers 08:30:00 08:30:00 [place] ity [facility] 2020-03-03 2020-03-03 Outpatient R SELF, [facility] [id number] Univers 08:00:00 08:00:00 GADIEL rodas [facility] [place] [facility] 2020-03-03 2020-03-03 Outpatient R SELF, [facility] [id number] Univers 08:00:00 08:00:00 GADIELKEI rodas [facility] [place] [facility] 2020-03-03 2020-03-03 Travel 1.2.840.1 1.2.511.664 [id number] Univers 00:00:00 00:00:00 18389.1.1 350.1.13.10 ity of 3.104.2.7 4.[place].3.698 [place] .3.684223 084.8 Medica l .8 [place] 2020-02-06 2020-02-06 Telephone [place], 1.2.840.8 [id number] Univers 00:00:00 00:00:00 [place] 24425.1.1 ity of 3.104.2.7 [place] .3.692670 Medica l .8 [place] 2020-01-26 2020-01-26 Emergency [place], 1.2.840.5 [id number] Univers 10:03:00 13:05:00 Cynise 38752.1.1 ity of 3.104.2.7 [place] .3.171891 Medica l .8 [place] 2020-01-26 2020-01-26 Travel 1.2.840.1 1.2.563.631 [id number] Univers 00:00:00 00:00:00 09253.1.1 350.1.13.10 ity of 3.104.2.7 4.[place].3.698 [place] .3.597450 084.8 Medica l .8 [place] 2020-01-25 2020-01-25 Outpatient R [place], [facility] [id number] Univers 08:30:00 08:30:00 [place] ity [facility] 2020-01-25 2020-01-25 Telemedici [place], 1.2.840.4 [id number] Univers 07:36:49 08:06:49 ne Visit [place] 91633.1.1 ity of 3.104.2.7 [place] .3.961065 Medica l .8 [place] 2020-01-16 2020-01-16 Outpatient R [place], [facility] [id number] Univers 08:00:00 08:00:00 [place] ity [facility] 2020-01-16 2020-01-16 Telephone [place], 1.2.840.8 [id number] Univers 00:00:00 00:00:00 [place] 53079.1.1 ity of 3.104.2.7 [place] .3.730694 Medica l .8 [place] 2020-01-14 2020-01-14 Outpatient R SELF, [facility] [id number] Univers 08:00:00 08:00:00 GADIEL barbosa o f [facility] [place] [facility] 2019-12-31 2019-12-31 Outpatient R SELF, [facility] [id number] Univers 08:45:00 08:45:00 GADIEL maciely o f [facility] [place] [facility] 2019-10-17 2019-10-17 Outpatient R [facility], [facility] [id number] Univers 08:30:00 08:30:00 [place] ity [facility] 2019-10-12 2019-10-12 Outpatient R [place], [facility] [id number] Univers 13:00:00 13:00:00 [place] ity [facility] 2019-10-12 2019-10-12 Telemedici [place], 1.2.840.4 [id number] Univers 07:38:30 08:08:30 ne Visit [place] 85576.1.1 ity of 3.104.2.7 [place] .3.815422 Medica l .8 [place] 2019-10-08 2019-10-08 Outpatient R SELF, [facility] [id number] Univers 10:15:00 10:15:00 GADIEL ity o f [facility] [facility] [place] [facility] 2019-10-03 2019-10-03 Case Xiao, 1.2.840.1 [id number] Univers 00:00:00 00:00:00 Management Michael Corbin 77832.1.1 i ty of 3.104.2.7 [place] .3.456867 [facility] .[facility] [place] 2019-09-27 2019-09-27 Telephone East, 1.2.840.3 [id number] Univers 00:00:00 00:00:00 [place] 67620.1.1 ity of 3.104.2.7 [place] .3.036562 Medica l .8 [place] 2019-09-04 2019-09-04 Refill East, 1.2.840.4 [id number] Univers 00:00:00 00:00:00 [place] 19199.1.1 ity of 3.104.2.7 [place] .3.371955 Medica l .8 [place] 2019-07-24 2019-07-24 [facility] [id number] Univers 08:30:00 08:30:00 [place] ity [facility] 2019-07-17 2019-07-17 Outpatient R [facility] [id number] Univers 10:00:00 10:00:00 S[place]O ity of [facility] [place] [facility] 2019-06-15 2019-06-15 Telephone East, 1.2.840.0 [id number] Univers 00:00:00 00:00:00 [place] 36261.1.1 ity of 3.104.2.7 [place] .3.148232 Medica l .8 [place] 2019-06-13 2019-06-13 Telephone Team, [facility] 1.2.840.3 [id number] Univers 00:00:00 00:00:00 Health 08831.1.1 [place] .3.9389[place] .8 [place] 2019-05-10 2019-05-10 Refill Ronald, 1.2.840.7 [id number] Univers 00:00:00 00:00:00 [place] 79704.1.1 ity of 3.104.2.7 [place] .3.558722 Medica l .8 [place] 2019-05-09 2019-05-09 Refill Ronald, 1.2.840.9 [id number] Univers 00:00:00 00:00:00 [place] 27034.1.1 ity of 3.104.2.7 [place] .3.345699 Medica l .8 [facility] 2019-04-30 2019-04-30 Outpatient R RODO [facility] [id number] Univers 10:15:00 10:33:05 GADIEL barbosa o f [facility] [place] [facility] 2019-04-18 2019-04-18 Metal Sprayer Ronald [place] 1.2.840.1 [id number] Univers 10:00:39 10:44:31 Visit [facility] 30541.1.1 ity of 3.104.2.7 [place] .3.105283 Medica l .8 [facility] 2019-04-18 2019-04-18 Outpatient R RONALD [facility] [id number] Univers 10:00:00 10:44:31 S[place]IAGO ity of [facility] [place] [facility] 2019-04-18 2019-04-18 Office Ronald, 1.2.840.3 [id number] Univers 08:27:44 09:53:27 Visit [place] 01056.1.1 ity of 3.104.2.7 [place] .3.457855 Medica l .8 [facility] 2019-04-18 2019-04-18 Orders Doctor 1.2.840.5 [id number] Univers 00:00:00 00:00:00 Only Unassigned, 67011.1.[address] [place] 3.104.2.7 [place] .3.419074 Medica l .8 [facility] 2019-04-11 2019-04-11 Refill Ronald, 1.2.840.0 [id number] Univers 00:00:00 00:00:00 [place] 61412.1.1 ity of 3.104.2.7 [place] .3.413982 Medica l .8 [facility] 2019-04-09 2019-04-09 Refill East, 1.2.840.5 [id number] Univers 00:00:00 00:00:00 [place] 73910.1.1 ity of 3.104.2.7 [place] .3.467078 Medica l .8 [place] 2019-04-03 2019-04-03 Telephone Team, [facility] 1.2.840.2 [id number] Univers 00:00:00 00:00:00 Health 94466.1.1 [place] .3.086688 [place] .8 [place] 2019-03-27 2019-03-27 Telephone Self, 1.2.840.4 [id number] Univers 00:00:00 00:00:00 Gadiel 73287.1.1 ity of 3.104.2.7 [place] .3.160831 Medica l .8 [facility] 2019-01-17 2019-01-17 Office East, 1.2.840.0 [id number] Univers 07:37:21 10:32:51 Visit [place] 32956.1.1 ity of 3.104.2.7 [place] .3.774173 Medica l .8 [facility] 2019-01-04 2019-01-12 Office Eveline Hansen 1.2.840.8 [id number] Univers 11:19:32 11:08:05 Visit Mariela 56240.1.1 ity of 3.104.2.7 [place] .3.738296 Medica l .8 [facility] 2019-01-10 2019-01-10 Telephone Stanislav, 1.2.840.7 [id number] Univers 00:00:00 00:00:00 Eladio Inman 01150.1.1 ity of 3.104.2.7 [place] .3.115051 Medica l .8 [place] 2018-12-18 2018-12-18 Office Geraldine, 1.2.840.1 [id number] Univers 08:48:45 09:13:43 Visit Leyda 64290.1.1 it y of 3.104.2.7 [place] .3.685281 Medica l .8 [place] 2018-10-30 2018-10-30 Telephone East, 1.2.840.8 [id number] Univers 00:00:00 00:00:00 [place] 26904.1.1 ity of 3.104.2.7 [place] .3.473788 Medica l .8 [place] 2018-10-23 2018-10-23 Orders Doctor 1.2.840.1 [id number] Univers 00:00:00 00:00:00 Only Unassigned, 45353.1.[address] [place] 3.104.2.7 [place] .3.909367 Medica l .8 [place] 2018-10-23 2018-10-23 Nurse Selvin, 1.2.840.9 [id number] Univers 00:00:00 00:00:00 Triage Stefanie 39190.1.1 ity of 3.104.2.7 [place] .3.583095 Medica l .8 [place] 2018-10-23 2018-10-23 Telephone Self, 1.2.840.0 [id number] Univers 00:00:00 00:00:00 Gdaiel 21280.1.1 ity of 3.104.2.7 [place] .3.544775 Medica l .8 [place] 2018-10-20 2018-10-20 Telephone Self, 1.2.840.1 [id number] Univers 00:00:00 00:00:00 Gadiel 14459.1.1 ity of 3.104.2.7 [place] .3.772842 Medica l .8 [place] Results Test Description Test Time Test Comments Results Result Comments Source COMP. METABOLIC PANEL (44604) 2022-05-06 22:42:55 Test Item Value Reference Range Interpretation Comme nts NA (test code = 7329796218) 137 mmol/L 135-145 K (test code = 4332685465) 3.2 mmol/L 3.5-5.0 L CL (test code = 7769342120) 100 mmol/L 98-108 CO2 TOTAL (test code = 9830503049) 23 mmol/L 23-31 AGAP (test code = 2206810239) 2-16 BUN (test code = 9429278956) 41 mg/dL 7-23 H GLUCOSE (test code = 0702568053) 98 mg/dL 70-110 CREATININE (test code = 1.55 mg/dL 0.50-1.04 H 5662099792) TOTAL BILI (test code = 0.8 mg/dL 0.1-1.7 8677867050) CALCIUM (test code = 1806388034) 8.3 mg/dL 8.6-10.6 L T PROTEIN (test code = 2705153579) 6.9 g/dL 6.3-8.2 ALBUMIN (test code = 5715683197) 3.9 g/dL 3.5-5.0 ALK PHOS (test code = 3604523151) 89 U/L 34-122 ALTv (test code = 1742-6) 101 U/L 5-35 H AST(SGOT) (test code = 4981619710) 203 U/L 13-40 H eGFR (test code = 7449102996) mL/min/1.73m2 KYLE (test code = KYLE) Association [...] tests). Lab Interpretation (test code = Abnormal 69733-5) [facility] WITH [id number] 22:33:52 Test Item Value Reference Range Interpretation [...] RDW-SD (test code = 46.3 fL 39.0-49.9 46021-6) RDW-CV (test code = 13.5 % 12.0-15.5 788-0) PLT (test code = See_Comment L [Automated 777-3) message] The sy stem which generated this result transmitted reference range : 166 - 358 10*3/ ?L. The reference r abbey was not used to interpret this result as normal/abnormal . MPV (test code = 9.5 fL 9.5-12.9 67699-7) NRBC/100 WBC (test See_Comment [Automat ed code = 8741157388) message] The system which generated this result transmitted reference range : 0.0 - 10.0 /100 WBCs. The refer ence range was not u sed to interpret th is result as normal/abnormal . NRBC x10^3 (test code See_Comment [Auto mated = 2111196657) message] The s ystem which generated this result transmitted reference range : 10*3/?L. The reference range was not used to interpret this result as normal/abnormal . GRAN MAT (NEUT) % 58.3 % (test code = 770-8) IMM GRAN % (test code 0.80 % = 9975972373) LYMPH % (test code = 28.1 % 736-9) MONO % (test code = 12.0 % 5905-5) EOS % (test code = 0.5 % 713-8) BASO % (test code = 0.3 % 706-2) GRAN MAT x10^3(ANC) 2.29 10*3/uL 1.88-7.09 (test code = 9485573063) IMM GRAN x10^3 (test 0.03 10*3/uL 0.00-0.06 code = 3264664797) LYMPH x10^3 (test code 1.10 10*3/uL 1.32-3.29 L = 731-0) MONO x10^3 (test code 0.47 10*3/uL 0.33-0.92 = 742-7) EOS x10^3 (test code = 0.03-0.39 L 711-2) BASO x10^3 (test code 0.01-0.07 = 704-7) Lab Interpretation Abnormal (test code = 11962-3) [facility] METABOLIC PANEL (NA, K, CL, CO2, GLUCOSE, BUN, CREATININE, CA)2022-04-22 21:43:42 Test Item Value Reference Range Interpretation Comments NA (test code = 142 mmol/L 135-145 8210125166) K (test code = 3.5 mmol/L 3.5-5.0 0761093160) CL (test code = 106 mmol/L 98-108 2566655896) CO2 TOTAL (test code = 26 mmol/L 23-31 5065531348) AGAP (test code = 2-16 2180507263) BUN (test code = 29 mg/dL 7-23 H 9706226589) GLUCOSE (test code = 84 mg/dL 70-110 5437151517) CREATININE (test code = 1.16 mg/dL 0.50-1.04 H 5547949691) CALCIUM (test code = 8.2 mg/dL 8.6-10.6 L 7202656241) eGFR (test code = mL/min/1.73m2 9597547737) KYLE (test code = KYLE) Association of [...] tests). Lab Interpretation Abnormal (test code = 98485-8) [facility] WITH [id number] 21:33:01 Test Item Value Reference Range Interpretation Comments WBC (test code = See_Comment [Automated 6090-2) message] The sy stem which [...] (test code = 50.7 fL 39.0-49.9 H 55560-3) RDW-CV (test code = 14.6 % 12.0-15.5 788-0) PLT (test code = See_Comment L [Automated 777-3) message] The sy stem which generated this result transmitted reference range : 166 - 358 10*3/ ?L. The reference r abbey was not used to interpret this result as normal/abnormal . MPV (test code = 8.8 fL 9.5-12.9 L 15419-4) NRBC/100 WBC (test See_Comment [Automat ed code = 8863881880) message] The system which generated this result transmitted reference range : 0.0 - 10.0 /100 WBCs. The refer ence range was not u sed to interpret th is result as normal/abnormal . NRBC x10^3 (test code See_Comment [Auto mated = 1342507850) message] The s ystem which generated this result transmitted reference range : 10*3/?L. The reference range was not used to interpret this result as normal/abnormal . GRAN MAT (NEUT) % 70.9 % (test code = 770-8) IMM GRAN % (test code 0.50 % = 7109683929) LYMPH % (test code = 17.4 % 736-9) MONO % (test code = 9.0 % 5905-5) EOS % (test code = 1.7 % 713-8) BASO % (test code = 0.5 % 706-2) GRAN MAT x10^3(ANC) 4.60 10*3/uL 1.88-7.09 (test code = 2232261680) IMM GRAN x10^3 (test 0.03 10*3/uL 0.00-0.06 code = 7230268171) LYMPH x10^3 (test code 1.13 10*3/uL 1.32-3.29 L = 731-0) MONO x10^3 (test code 0.58 10*3/uL 0.33-0.92 = 742-7) EOS x10^3 (test code = 0.11 10*3/uL 0.03-0.39 711-2) BASO x10^3 (test code 0.03 10*3/uL 0.01-0.07 = 704-7) Lab Interpretation Abnormal (test code = 62284-6) [facility] CULTURE [id number] 06:01:07 Test Item Value Reference Range Interpretation Comments Blood Culture-Aerobic No organisms No growth Previo us (test code = 31996-0) isolated prelim inary verified result was Culture [...] Culture-Anaerobic isolated preliminar y (test code = 86837-1) verifi ed result was Culture In Progress [...] CDT Lab Interpretation Normal (test code = 25161-5) [facility] CULTURE [id number] 06:01:07 Test Item Value Reference Range Interpretation Comments Blood Culture-Aerobic No organisms No growth Previo us (test code = 44336-1) isolated prelim inary verified result was Culture [...] Culture-Anaerobic isolated preliminar y (test code = 89949-8) verifi ed result was Culture In Progress [...] CDT Lab Interpretation Normal (test code = 12919-4) [facility] CULTURE [id number] 06:01:07 Test Item Value Reference Range Interpretation Comments Blood Culture-Aerobic No organisms No growth Previo us (test code = 72263-5) isolated prelim inary verified result was Culture [...] Culture-Anaerobic isolated preliminar y (test code = 03877-8) verifi ed result was Culture In Progress [...] CDT Lab Interpretation Normal (test code = 78590-0) [id number] 10:49:10 Test Item Value Reference Range Interpretation Comments NT-proBNP (test code 2660 pg/mL See_Comment H [Autom ated = 6268476465) message] The system which generated this result transmitted reference range : <=125. The reference range was not used to interpret this result as normal/abnormal . KYLE (test code = KYLE) Biotin has been reported to cause a negative bias, interpret results relative to patient's use of biotin. Lab Interpretation Abnormal (test code = 93195-3) [facility] [id number] 10:49:10 Test Item Value Reference Range Interpretation Comments NT-proBNP (test code 2660 pg/mL See_Comment H [Autom ated = 3138487597) message] The system which generated this result transmitted reference range : <=125. The reference range was not used to interpret this result as normal/abnormal . KYLE (test code = KYLE) Biotin has been reported to cause a negative bias, interpret results relative to patient's use of biotin. Lab Interpretation Abnormal (test code = 75101-8) [facility] (NA, K, CL, CO2, GLUCOSE, BUN, CREATININE, CA)2022-02-15 10:44:07 Test Item Value Reference Range Interpretation Comments NA (test code = 134 mmol/L 135-145 L 5422013224) K (test code = 3.2 mmol/L 3.5-5 L 5513440076) CL (test code = 98 mmol/L 98-108 5714051968) CO2 TOTAL (test code = 27 mmol/L 23-31 6106177935) AGAP (test code = 2-16 2086919891) BUN (test code = 19 mg/dL 7-23 1271912279) GLUCOSE (test code = 102 mg/dL 70-110 5560302928) CREATININE (test code = 0.95 mg/dL 0.5-1.04 8171823405) CALCIUM (test code = 8.5 mg/dL 8.6-10.6 L 0549629647) eGFR (test code = mL/min/1.73m2 1211971870) KYLE (test code = KYLE) Association of [...] tests). Lab Interpretation Abnormal (test code = 63820-7) [facility]2022-09-26 10:44:07 Test Item Value Reference Range Interpretation Comments MAGNESIUM (test code = 0141973786) 1.8 mg/dL 1.7-2.4 Lab Interpretation (test code = Normal 63481-6) [facility] Test Item Value Reference Range Interpretation Comments MAGNESIUM (test code = 3201605577) 1.8 mg/dL 1.7-2.4 Lab Interpretation (test code = Normal 87376-5) [facility] (NA, K, CL, CO2, GLUCOSE, BUN, CREATININE, CA)2022-02-15 10:44:07 Test Item Value Reference Range Interpretation Comments NA (test code = 134 mmol/L 135-145 L 5347752691) K (test code = 3.2 mmol/L 3.5-5.0 L 3002049923) CL (test code = 98 mmol/L 98-108 2046520739) CO2 TOTAL (test code = 27 mmol/L 23-31 6343135791) AGAP (test code = 2-16 9144918901) BUN (test code = 19 mg/dL 7-23 9818288205) GLUCOSE (test code = 102 mg/dL 70-110 7500645825) CREATININE (test code = 0.95 mg/dL 0.50-1.04 9936819466) CALCIUM (test code = 8.5 mg/dL 8.6-10.6 L 1050143747) eGFR (test code = mL/min/1.73m2 2617488649) KYLE (test code = KYLE) Association of [...] tests). Lab Interpretation Abnormal (test code = 95589-5) [facility] WITH [id number] 10:12:06 Test Item Value Reference Range Interpretation [...] RDW-SD (test code = 47.8 fL 39-49.9 61060-8) RDW-CV (test code = 15.2 % 12-15.5 788-0) PLT (test code = See_Comment L [Automated 777-3) message] The sy stem which generated this result transmitted reference range : 166 - 358 10*3/ ?L. The reference r abbey was not used to interpret this result as normal/abnormal . MPV (test code = 8.9 fL 9.5-12.9 L 34728-6) NRBC/100 WBC (test See_Comment [Automat ed code = 1974734399) message] The system which generated this result transmitted reference range : 0.0 - 10.0 /100 WBCs. The refer ence range was not u sed to interpret th is result as normal/abnormal . NRBC x10^3 (test code See_Comment [Auto mated = 9834465038) message] The s ystem which generated this result transmitted reference range : 10*3/?L. The reference range was not used to interpret this result as normal/abnormal . GRAN MAT (NEUT) % 65.9 % (test code = 770-8) IMM GRAN % (test code 0.30 % = 1349889344) LYMPH % (test code = 21.0 % 736-9) MONO % (test code = 10.1 % 5905-5) EOS % (test code = 2.4 % 713-8) BASO % (test code = 0.3 % 706-2) GRAN MAT x10^3(ANC) 2.49 10*3/uL 1.88-7.09 (test code = 5899392446) IMM GRAN x10^3 (test 0-0.06 code = 8905539117) LYMPH x10^3 (test code 0.79 10*3/uL 1.32-3.29 L = 731-0) MONO x10^3 (test code 0.38 10*3/uL 0.33-0.92 = 742-7) EOS x10^3 (test code = 0.09 10*3/uL 0.03-0.39 711-2) BASO x10^3 (test code 0.01-0.07 = 704-7) Lab Interpretation Abnormal (test code = 81018-1) [facility] WITH [id number] 10:12:06 Test Item Value Reference Range Interpretation [...] RDW-SD (test code = 47.8 fL 39.0-49.9 87560-7) RDW-CV (test code = 15.2 % 12.0-15.5 788-0) PLT (test code = See_Comment L [Automated 777-3) message] The sy stem which generated this result transmitted reference range : 166 - 358 10*3/ ?L. The reference r abbey was not used to interpret this result as normal/abnormal . MPV (test code = 8.9 fL 9.5-12.9 L 41162-8) NRBC/100 WBC (test See_Comment [Automat ed code = 5551163435) message] The system which generated this result transmitted reference range : 0.0 - 10.0 /100 WBCs. The refer ence range was not u sed to interpret th is result as normal/abnormal . NRBC x10^3 (test code See_Comment [Auto mated = 2782159365) message] The s ystem which generated this result transmitted reference range : 10*3/?L. The reference range was not used to interpret this result as normal/abnormal . GRAN MAT (NEUT) % 65.9 % (test code = 770-8) IMM GRAN % (test code 0.30 % = 6015482363) LYMPH % (test code = 21.0 % 736-9) MONO % (test code = 10.1 % 5905-5) EOS % (test code = 2.4 % 713-8) BASO % (test code = 0.3 % 706-2) GRAN MAT x10^3(ANC) 2.49 10*3/uL 1.88-7.09 (test code = 5819800335) IMM GRAN x10^3 (test 0.00-0.06 code = 9009692447) LYMPH x10^3 (test code 0.79 10*3/uL 1.32-3.29 L = 731-0) MONO x10^3 (test code 0.38 10*3/uL 0.33-0.92 = 742-7) EOS x10^3 (test code = 0.09 10*3/uL 0.03-0.39 711-2) BASO x10^3 (test code 0.01-0.07 = 704-7) Lab Interpretation Abnormal (test code = 03613-2) [facility] WITH [id number] 11:18:28 Test Item Value Reference Range Interpretation [...] RDW-SD (test code = 49.5 fL 39-49.9 52340-4) RDW-CV (test code = 15.5 % 12-15.5 788-0) PLT (test code = See_Comment L [Automated 777-3) message] The sy stem which generated this result transmitted reference range : 166 - 358 10*3/ ?L. The reference r abbey was not used to interpret this result as normal/abnormal . MPV (test code = 11.4 fL 9.5-12.9 84882-0) IPF % (test code = 8.7 % 1.3-7.7 H Platelet count 5069422808) measured by fluorescence method. NRBC/100 WBC (test See_Comment [Automat ed code = 8515669597) message] The system which generated this result transmitted reference range : 0.0 - 10.0 /100 WBCs. The refer ence range was not u sed to interpret th is result as normal/abnormal . NRBC x10^3 (test code See_Comment [Auto mated = 0515210519) message] The s ystem which generated this result transmitted reference range : 10*3/?L. The reference range was not used to interpret this result as normal/abnormal . GRAN MAT (NEUT) % 62.0 % (test code = 770-8) IMM GRAN % (test code 0.80 % = 7329022619) LYMPH % (test code = 22.2 % 736-9) MONO % (test code = 9.6 % 5905-5) EOS % (test code = 5.1 % 713-8) BASO % (test code = 0.3 % 706-2) GRAN MAT x10^3(ANC) 2.21 10*3/uL 1.88-7.09 (test code = 0124788260) IMM GRAN x10^3 (test 0.03 10*3/uL 0-0.06 code = 1540937108) LYMPH x10^3 (test code 0.79 10*3/uL 1.32-3.29 L = 731-0) MONO x10^3 (test code 0.34 10*3/uL 0.33-0.92 = 742-7) EOS x10^3 (test code = 0.18 10*3/uL 0.03-0.39 711-2) BASO x10^3 (test code 0.01-0.07 = 704-7) POLYCHROMASIA (test 2+ See_Comment [Automa arpit code = 64349-6) message] The system which generated this result [...] . Lab Interpretation Abnormal (test code = 40345-9) [facility] METABOLIC PANEL (NA, K, CL, CO2, GLUCOSE, BUN, CREATININE, CA)2022-02-13 10:39:07 Test Item Value Reference Range Interpretation Comments NA (test code = 136 mmol/L 135-145 9691622320) K (test code = 4.1 mmol/L 3.5-5 6696451550) CL (test code = 102 mmol/L 98-108 6630677433) CO2 TOTAL (test code = 27 mmol/L 23-31 1554866457) AGAP (test code = 2-16 6165612498) BUN (test code = 22 mg/dL 7-23 0809324882) GLUCOSE (test code = 94 mg/dL 70-110 6736250032) CREATININE (test code = 0.94 mg/dL 0.5-1.04 5034149057) CALCIUM (test code = 8.1 mg/dL 8.6-10.6 L 3880853722) eGFR (test code = mL/min/1.73m2 8711532311) KYLE (test code = KYLE) Association of [...] tests). Lab Interpretation Abnormal (test code = 51405-5) [facility] 01:50:10 Test Item Value Reference Range Interpretation Comments Height (test code = in 8122435782) Weight (test code = lbs 1560487758) Systolic BP (test code mmHg = 1748222624) Diastolic BP (test code mmHg = 7167983696) Heart Rate (test code = bpm 6807854326) BSA (test code = 1.85 m2 9330439442) IVS (test code = 1.22 cm 9913108336) Interventricular Septum 1.22 cm Diastolic Thickness by 2D (test code = 1512116) LVIDD (test code = 5.00 cm 9494209145) Left Ventricular End 117.9 mL Diastolic Volume by Teichholz Method (test code = 8606330) LVPWD (test code = 1.22 cm 9478309441) PW (test code = 1.22 cm 0.6-1.9 2575507947) EF(Teich) (test code = 74.60 % 5778643020) LVIDS (test code = 2.80 cm 2605139316) Left Ventricular End 29.9 mL Systolic Volume by Teichholz Method (test code = 0101276) FS (test code = 44 % 2998143287) EF - 2D (test code = 74.60 % 18707640) LVOT diameter (test 2.16 cm code = 9289424589) LVOT area (test code = 3.70 cm2 3802162805) Ao root diam (test code 3.40 cm = 3311273476) Aortic root (test code 3.4 cm = 7435277650) Ao root annulus (test 3.4 cm code = 1563857417) LA size (test code = 3.4 cm 3163689390) TR Peak Spencer (test code 330.0 cm/s = 7330990069) Triscuspid Valve mmHg Regurgitation Peak Gradient (test code = 0695389843) PV REGURGITATION PEAK mmHg GRADIENT (test code = 5133729497) PI dec slope (test code 137.20 cm/s2 = 1328440887) LAV(MOD-sp4) (test code 102.90 mL = 5314593128) MV Peak E Spencer (test 84.1 cm/s code = 5056172287) MV Peak A Spencer (test 40.1 cm/s code = 5628969468) E/A ratio (test code = ratio 4516178397) MV valve area p 1/2 3.70 cm2 method (test code = 2634677702) MV dec slope (test code 413.00 cm/s2 = 4526293573) MV P1/2t max spencer (test 83.70 cm/s code = 1403670221) MV Prop V (test code = 41.80 cm/s 2399694598) Tapse (test code = 1.83 cm 9502357244) LVOT stroke volume 96.90 cm3 (test code = 9949604400) LVOT peak spencer (test 125.5 cm/s code = 9274042059) LVOT mn grad (test code mmHg = 0272996376) AV LVOT peak gradient mmHg (test code = 7585066447) LVOT peak VTI (test 26.4 cm code = 7458336466) LV V1 mean (test code = 78.10 cm/s 7399870456) Aortic valve mean 103.7 cm/s velocity (test code = 5246170917) Ao peak spencer (test code 165.6 cm/s = 2812885021) Ao VTI (test code = 37.2 cm 8538085063) AV area by cont VTI 2.6 cm2 (test code = 5441165840) AV area peak spencer (test 2.8 cm2 code = 4664846635) Ao max PG (test code = 11.00 mm[Hg] 0109552289) AV peak gradient (test mmHg code = 5086977007) AV valve area (test 2.60 cm2 code = 5251214900) AV mean gradient (test mmHg code = 9716632441) LA Volume Index (BP) 55.2 mL/m2 (test code = 8527336936) LA volume (BP) (test 102.1 mL code = 4029919482) LAV(MOD-sp2) (test code 86.10 mL = 6038268536) A2C EF (test code = 61.20 % 5576438517) EF(sp2-el) (test code = 61.60 % 1850359865) SV(MOD-sp2) (test code 47.10 mL = 6673463690) LV Diastolic Volume 70.7 mL (BP) (test code = 4468115149) A4C EF (test code = 53.00 % 1506206494) EF(MOD-bp) (test code = 56.70 % 8863718980) EF(sp4-el) (test code = 53.90 % 2483063601) LV Systolic Volume (BP) 30.6 mL (test code = 6194280867) SV(MOD-bp) (test code = 40.10 mL 7066406874) SV(MOD-sp4) (test code 32.40 mL = 5587885500) SV(sp4-el) (test code = 33.10 mL 7852290207) EF (test code = 4330908631) Left Ventricular Stroke 40.1 mL Volume by 2-D Biplane-MOD (test code = 8211369) LV Diastolic Volume 38.2 mL/m2 Index (BP) (test code = 1145770795) LV Systolic Volume 16.5 mL/m2 Index (BP) (test code = 1876164507) Radiology Study observation (narrative) (test code = 49859-6) KYLE (test code = KYLE) ?Left?Ventricle: Left [...] left ventricular wall motion is normal. [id number] Test Item Value Reference Interpretation Comments Range TROPONIN I (test See_Comment [Automated code = 5706585959) message] The system which generated this result [...] biotin. Lab Interpretation Normal (test code = 29657-3) [id number] 05:41:40 Test Item Value Reference Range Interpretation Comments NT-proBNP (test code 4250 pg/mL See_Comment H [Autom ated = 2084704046) message] The system which generated this result transmitted reference range : <=125. The reference range was not used to interpret this result as normal/abnormal . KYLE (test code = KYLE) Biotin has been reported to cause a negative bias, interpret results relative to patient's use of biotin. Lab Interpretation Abnormal (test code = 98595-8) [facility] [id number] 05:35:21 Test Item Value Reference Range Interpretation Comments APTT Patient (test See_Comment [Automat ed code = 3173-2) message] The system which generated this result transmitted reference range : 23 - 38 Seconds . The reference range was not used to interpr et this result as normal/abnormal . KYLE (test code = KYLE) The [facility] patient population mean normal value for aPTT is 30 seconds. Lab Interpretation Normal (test code = 67102-7) [facility] [id number] 05:35:21 Test Item Value Reference Range Interpretation Comments APTT Patient (test See_Comment [Automat ed code = 3173-2) message] The system which generated this result transmitted reference range : 23 - 38 Seconds . The reference range was not used to interpr et this result as normal/abnormal . KYLE (test code = KYLE) The [facility] patient population mean normal value for aPTT is 30 seconds. Lab Interpretation Normal (test code = 70519-0) [facility] / [id number] 05:33:21 Test Item Value Reference Range Interpretation [...] tions. Lab Interpretation (test Normal code = 53991-9) [facility]. METABOLIC PANEL (24195)2022-02-11 05:33:21 Test Item Value Reference Range Interpretation Comments NA (test code = 137 mmol/L 135-145 6297935121) K (test code = 4.3 mmol/L 3.5-5 9033817264) CL (test code = 103 mmol/L 98-108 4593911374) CO2 TOTAL (test code = 25 mmol/L 23-31 0548446710) AGAP (test code = 2-16 9952357548) BUN (test code = 19 mg/dL 7-23 6429963214) GLUCOSE (test code = 120 mg/dL 70-110 H 9032562866) CREATININE (test code = 1.15 mg/dL 0.5-1.04 H 7194078163) TOTAL BILI (test code = 0.9 mg/dL 0.1-1.8 3318364084) CALCIUM (test code = 8.9 mg/dL 8.6-10.6 8456740271) T PROTEIN (test code = 6.6 g/dL 6.3-8.2 2527072421) ALBUMIN (test code = 4.0 g/dL 3.5-5 9107330298) ALK PHOS (test code = 73 U/L 34-122 3192581505) ALTv (test code = 18 U/L 5-35 1742-6) AST(SGOT) (test code = 31 U/L 13-40 2056414186) eGFR (test code = mL/min/1.73m2 0772894840) KYLE (test code = KYLE) Association of [...] tests). Lab Interpretation Abnormal (test code = 85756-4) [facility]. METABOLIC PANEL (87094)2022-02-11 05:33:21 Test Item Value Reference Range Interpretation Comments NA (test code = 137 mmol/L 135-145 1179886566) K (test code = 4.3 mmol/L 3.5-5.0 4507503691) CL (test code = 103 mmol/L 98-108 2245910908) CO2 TOTAL (test code = 25 mmol/L 23-31 1605159196) AGAP (test code = 2-16 2967649621) BUN (test code = 19 mg/dL 7-23 4829350954) GLUCOSE (test code = 120 mg/dL 70-110 H 3272974337) CREATININE (test code = 1.15 mg/dL 0.50-1.04 H 2105743135) TOTAL BILI (test code = 0.9 mg/dL 0.1-1.5 9254868386) CALCIUM (test code = 8.9 mg/dL 8.6-10.6 6213299912) T PROTEIN (test code = 6.6 g/dL 6.3-8.2 5683012214) ALBUMIN (test code = 4.0 g/dL 3.5-5.0 5692483884) ALK PHOS (test code = 73 U/L 34-122 4995118241) ALTv (test code = 18 U/L 5-35 1742-6) AST(SGOT) (test code = 31 U/L 13-40 5454386383) eGFR (test code = mL/min/1.73m2 0641472394) KYLE (test code = KYLE) Association of [...] tests). Lab Interpretation Abnormal (test code = 93628-9) [facility] / [id number] 05:33:21 Test Item Value Reference Range Interpretation Comments PROTIME PATIENT (test See_Comment [Auto mated message] code = 5964-2) The system View[employer] generated this result transmitted ref erence range: 12.0 - 1 4.7 Seconds. The re ference range was not u sed to interpret this result as normal/abnor mal. INR (test code = 6301-6) Nor mal INR <1.1; Warfarin Therap eutic range 2.0 to 3. 0 or 2.5 to 3.5, dep ending upon the indica tions. Lab Interpretation (test Normal code = 37062-1) [facility] WITH [id number] 05:14:37 Test Item Value Reference Range Interpretation [...] RDW-SD (test code = 47.9 fL 39-49.9 17910-5) RDW-CV (test code = 14.9 % 12-15.5 788-0) PLT (test code = See_Comment L [Automated 777-3) message] The sy stem which generated this result transmitted reference range : 166 - 358 10*3/ ?L. The reference r abbey was not used to interpret this result as normal/abnormal . MPV (test code = 9.1 fL 9.5-12.9 L 45131-5) NRBC/100 WBC (test See_Comment [Automat ed code = 6466074273) message] The system which generated this result transmitted reference range : 0.0 - 10.0 /100 WBCs. The refer ence range was not u sed to interpret th is result as normal/abnormal . NRBC x10^3 (test code See_Comment [Auto mated = 8284976155) message] The s ystem which generated this result transmitted reference range : 10*3/?L. The reference range was not used to interpret this result as normal/abnormal . GRAN MAT (NEUT) % 78.5 % (test code = 770-8) IMM GRAN % (test code 0.20 % = 4421029936) LYMPH % (test code = 11.6 % 736-9) MONO % (test code = 8.4 % 5905-5) EOS % (test code = 1.1 % 713-8) BASO % (test code = 0.2 % 706-2) GRAN MAT x10^3(ANC) 3.45 10*3/uL 1.88-7.09 (test code = 8786027168) IMM GRAN x10^3 (test 0-0.06 code = 8773779261) LYMPH x10^3 (test code 0.51 10*3/uL 1.32-3.29 L = 731-0) MONO x10^3 (test code 0.37 10*3/uL 0.33-0.92 = 742-7) EOS x10^3 (test code = 0.05 10*3/uL 0.03-0.39 711-2) BASO x10^3 (test code 0.01-0.07 = 704-7) Lab Interpretation Abnormal (test code = 87266-3) [facility] Coronavirus 2019 Hfhbzxi3310-27-62 18:08:00 Test Item Value Reference Range Interpretation [...] det ection of nucleic acids f rom gpyHLUY-RzJ-2 v irus and diagnosis of SA RS-CoV-2 virusinfection. It is an Emergency Use Authorization ( EUA) testauthorized by the U.S. FDA. BASIC METABOLIC [id number] 09:37:00 Test Item Value Reference Range Interpretation [...] = 9.0 mg/dL 8.0-10.5 N CA) PROTHROMBIN AQUM5353-14-63 09:32:00 Test Item Value Reference Range Interpretation [...] (to prevent recurrent infar ct). 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 1955 Sex: F FAX: Carmenza Olivera DO [phone] [place]: St: ADM FAX: Mike Scales MD [phone] FAX: Bahman Chopra [phone] Name: LIO WATTS [facility] Tano Garcia : 1955 Age/S: 66/F [address] [place] [address] Unit #: [id number] Loc: [place] Bernstein [address] Phys: Bahman Chopra [employer] Acct: [id number] Dis Date: Status: ADM IN PHONE #: [phone] Exam Date: 06/17/2021 1320 FAX #: [phone] Reason: WATCHMAN EXAMS: CPT CODE: [id number] XR CHEST 1 V 00774 PROCEDURE INFORMATION: Exam: XR Chest Exam date [...] Technologist: Jass Moreno RT(R) Trnscrd Date/Time/By: 06/17/2021 (6568) : By: Susanna Orig Print D/T: S: 06/17/2021 (3059) PAGE 1 Signed ReportCOVID 19 Asymptomatic IH [...] high or waivedcomplexit y tests. BASIC METABOLIC [id number] 11:37:00 Test Item Value Reference Range Interpretation [...] code = 9.0 mg/dL 8.0-10.5 N CA) OXRSDQDQPA4287-62-95 11:37:00 Test Item Value Reference Range Interpretation Comments PREALBUMIN (test code = PREALB) 24.3 mg/dL 16.0-40.0 N PROTHROMBIN BFCA0973-11-65 11:03:00 Test Item Value Reference Range Interpretation [...] (to prevent recurrent infar ct). CBC W/AUTO ADJG7715-05-31 10:59:00 Test Item Value Reference Range Interpretation [...] 0.0-0.1 N NRBC#) - XR CHEST 2 [id number] 00:00:00 [facility] 1955 Sex: F FAX: RobinCarmenza Singh Kristen VARELA [phone] [place]: St: PRE FAX: Mike Scales MD [phone] Name: LIO WATTS [facility] : 1955 Age/S: 66/F [address] [place] [address] Unit #: [id number] Loc: [place] [address] Phys: Mike Lund MD Acct: [id number] Dis Date: Status: PRE [facility] [place] #: [phone] Exam Date: 06/16/2021 1120 FAX #: [phone] Reason: PREOP EXAMS: CPT CODE: [id number] XR CHEST 2 V 02835 PROCEDURE INFORMATION: Exam: XR Chest Exam date [...] Mike Lund MD Technologist: Danielle Nix, RT(R) Trnnjrd Date/Time/By: 06/16/2021 (7044) : By: [email or web address] Orig Print D/T: S: 06/16/2021 (3175) PAGE 1 Signed ReportGastrointestinal jpquz6425-72-14 04:35:05 Test Item Value Reference Interpretation Comments [...] Rotavirus PCR (test Not Detected code = 3098669) Salmonella PCR (test Not Detected code = [...] PCR Not Detected (test code = 7124) [facility] dniodmo0776-32-85 19:30:47 Test Item Value Reference Range Interpretation Comments Case number (test [id number] code = 6424174) Surgical pathology See link below for PDF report (test code = Lab Report 2255) Result status (test This is Supplemental code = 3277834) Report for [id number] [facility]WuenzvrsSVBKVNHHYU2362-59-54 16:31:00 Test Item Value Reference Range Interpretation Comments POC Activated Clotting Time (test code 153 s = POC Activated Clotting Time) [facility]LxdkcobDKRXQLOIEQ4516-99-66 16:31:00 Test Item Value Reference Range Interpretation Comments POC Activated Clotting Time (test code 153 s = POC Activated Clotting Time) [facility]oundHwzekeiFXMROHZKYL8990-11-75 16:31:00 Test Item Value Reference Range Interpretation Comments POC Activated Clotting Time (test code 153 s = POC Activated Clotting Time) [place] 407591-04-09 16:31:00 Test Item Value Reference Range Interpretation Comments POC Activated Clotting Time (test code 153 s = POC Activated Clotting Time) [facility]oundNggajkgQWFVTYQSUL1086-59-49 16:31:00 Test Item Value Reference Range Interpretation Comments POC Activated Clotting Time (test code 153 s = POC Activated Clotting Time) [facility] MoundHdupdimTOPXKLAEFG7739-59-48 16:31:00 Test Item Value Reference Range Interpretation Comments POC Activated Clotting Time (test code 153 s = POC Activated Clotting Time) [facility] MoundWpnczfvTNYERKANFX9883-19-48 16:31:00 Test Item Value Reference Range Interpretation Comments POC Activated Clotting Time (test code 153 s = POC Activated Clotting Time) [facility] MoundQywdxosATADOJYUEP0037-28-74 14:37:00 Test Item Value Reference Range Interpretation Comments POC Activated Clotting Time (test code 454 s = POC Activated Clotting Time) [facility] MoundRetvytzZMQIYHMJMX2906-15-71 14:37:00 Test Item Value Reference Range Interpretation Comments POC Activated Clotting Time (test code 454 s = POC Activated Clotting Time) [facility] MoundUidrmcvPKNWMAAJRZ7873-75-73 14:37:00 Test Item Value Reference Range Interpretation Comments POC Activated Clotting Time (test code 454 s = POC Activated Clotting Time) [facility] MoundWkfjpxcPTKBIVGLDT0720-97-80 14:37:00 Test Item Value Reference Range Interpretation Comments POC Activated Clotting Time (test code 454 s = POC Activated Clotting Time) [facility]oundArnfgfwHAYEZGMRHK5732-26-88 14:37:00 Test Item Value Reference Range Interpretation Comments POC Activated Clotting Time (test code 454 s = POC Activated Clotting Time) [facility] MoundNtuwxykXHWFELJWSH1700-72-17 14:37:00 Test Item Value Reference Range Interpretation Comments POC Activated Clotting Time (test code 454 s = POC Activated Clotting Time) [facility] MoundDxvgvzbYCENZMAFHV0969-45-57 14:37:00 Test Item Value Reference Range Interpretation Comments POC Activated Clotting Time (test code 454 s = POC Activated Clotting Time) [facility] MoundHvpzfouUGBHITVVPV5700-95-30 14:13:00 Test Item Value Reference Range Interpretation Comments POC Activated Clotting Time (test code 354 s = POC Activated Clotting Time) [facility] MoundIktkdaaTZLUBFAYCD6605-08-24 14:13:00 Test Item Value Reference Range Interpretation Comments POC Activated Clotting Time (test code 354 s = POC Activated Clotting Time) [facility] MoundMxsqlxsZPYBRERJYM3660-30-54 14:13:00 Test Item Value Reference Range Interpretation Comments POC Activated Clotting Time (test code 354 s = POC Activated Clotting Time) [facility]oundHcfesmwEGEJSLGWHD1705-48-50 14:13:00 Test Item Value Reference Range Interpretation Comments POC Activated Clotting Time (test code 354 s = POC Activated Clotting Time) [facility]oundCdfxsabTEICXRNCEY2562-16-18 14:13:00 Test Item Value Reference Range Interpretation Comments POC Activated Clotting Time (test code 354 s = POC Activated Clotting Time) [facility] MoundUyoqlcqTYEBPZUZHM6192-02-41 14:13:00 Test Item Value Reference Range Interpretation Comments POC Activated Clotting Time (test code 354 s = POC Activated Clotting Time) [facility] MoundYhfwrklLJJVKHMHNQ7195-70-58 14:13:00 Test Item Value Reference Range Interpretation Comments POC Activated Clotting Time (test code 354 s = POC Activated Clotting Time) [facility] EEUBKST1689-10-80 10:37:00Negative (08/29/20 5:37 AM) [facility] IWQTM8602-12-37 10:37:12570Dcdbdjxu HermannCHEM PANEL 2020-08-29 10:37:0028[facility]annCHEM RFKGA3562-45-07 10:37:001.01[facility]annCHEM XGFXK1621-49-30 10:37:81531Hjozsyqf HermannCHEM DQPKO9955-18-06 10:37:003.8[facility]annCHEM CFXBY7139-19-68 10:37:93491Hohsntbd HermannCHEM YLHIJ9040-69-00 10:37:0028[facility]annCHEM JVZIM3639-69-51 10:37:009.8 [facility]annCHEM MXQZK2591-76-40 10:37:0011.8[facility] HermannCHEM PANEL 2020-08-29 10:37:0059[facility] HermannCHEM EDBTJ3456-21-33 10:37:002.9[facility] UfntfjwLRANHATJGY8162-61-32 10:37:006.8[facility] ZdgzoazKLBMJIQWQP8220-98-28 10:37:004.47[facility] BesddzhTICCYSWUTJ0958-39-60 10:37:0010.6[facility] HFTHBUPZDU5135-16-08 10:37:0034.0[facility] InjpszqJXAYHQVPMM2059-14-39 10:37:00 76.1[facility] IlgaehqORAMNBZFYG4806-27-55 10:37:00 Test Item Value Reference Range Interpretation Comments MCH (test code = MCH) 23.8 pg 27.0-31.0 [facility] IajfrceJOGKPMMHKF3471-16-74 10:37:0031.3[facility] HermannHEMATOLOGY 2020-08-29 10:37:0018.2[facility] CuurbmvGFPSDESQNE6379-57-38 10:37:22805Ctmacrvm DvkgawfLRBSSNHMPF8421-74-05 10:37:007.5[facility] IstpcyzFKGUHBSQLY2579-88-43 10:37:00 Test Item Value Reference Range Interpretation Comments PT (test code = PT) 12.8 s 12.0-14.7 [facility] UdbklojQHUSDCLRCN5983-19-24 10:37:00 Test Item Value Reference Range Interpretation Comments INR (test code = INR) 0.97 1 0.85-1.17 [facility] QewlfbkZFQVUTPHFS5561-53-30 10:37:00 Test Item Value Reference Range Interpretation Comments PTT (test code = PTT) 25.0 s 22.9-35.8 [facility] FxslohxRTFTIYSWOX9106-12-83 10:37:0070.5[facility] HermannHEMATOLOGY 2020-08-29 10:37:0018.8[facility] OxyjnupEVYPJIOAIQ0289-21-78 10:37:009.5[facility] WobhrayCWRCHZWSWY4977-39-13 10:37:000.9[facility] AxalbhoSXBFACNYPZ7749-74-37 10:37:000.3[facility] FcfkxspMZFTSOJTJT0062-05-59 10:37:004.8[facility] ATCHZOGJXP4521-88-89 10:37:001.3[facility] ZruptdwYHGPPSFZWY7348-39-27 10:37:000.6 [facility] MhtzphqEMSWKIRXTG9754-20-26 10:37:000.1[facility] HermannHEMATOLOGY 2020-08-29 10:37:001+ *ABN*(08/29/20 5:37 AM)[facility] VjdfxabYEEXLDVTEI0317-60-59 10:37:00Not Detected (08/29/20 5:37 AM)[facility]annBLOOD BANK RESULTS 2020-08-29 10:37:00Negative (08/29/20 5:37 AM)[facility] HermannCHEM NZYUP0094-86-73 10:37:65523Sjfuhxjr HermannCHEM RDPVD6260-18-71 10:37:0028[facility] HermannCHEM XUVUF7656-47-03 10:37:001.01[facility] HermannCHEM NWKWB9782-56-19 10:37:83628 [facility] HermannCHEM ALJIJ1993-73-42 10:37:003.8[facility] HermannCHEM PANEL 2020-08-29 10:37:74823Rftrmzjm HermannCHEM MURLL1223-31-85 10:37:0028[facility] HermannCHEM HVKKW7558-83-46 10:37:009.8[facility] HermannCHEM TZOXT6904-71-95 10:37:0011.8[facility] HermannCHEM DNQZH1088-72-03 10:37:0059[facility] HermannCHEM QCXNL8948-25-70 10:37:002.9[facility] PdaqqjgJUFISMDXIM7587-81-44 10:37:006.8 [facility] YwacupyWKPPWDGFKP1279-16-05 10:37:004.47[facility] HermannHEMATOLOGY 2020-08-29 10:37:0010.6[facility] YpylowhEEITBPYOJD4602-86-91 10:37:0034.0[facility] ChzyutiCRQRDOFIRZ0000-03-91 10:37:0076.1[facility] UhkrpjhCGNWOJBJYR2315-87-43 10:37:00 Test Item Value Reference Range Interpretation Comments MCH (test code = MCH) 23.8 pg 27.0-31.0 [facility] LqpgpxoJQPWXFXUTJ8994-01-16 10:37:0031.3[facility] HermannHEMATOLOGY 2020-08-29 10:37:0018.2[facility] XrriiaqMCNFXFKUOG3010-67-94 10:37:33628Rkmkjvrp VjiofzrNBJRRWRIOG2183-64-42 10:37:007.5[facility] VsukzuuUERUHGHJIS6136-62-40 10:37:00 Test Item Value Reference Range Interpretation Comments PT (test code = PT) 12.8 s 12.0-14.7 [facility] DdrohmqFDDERVFXEL1211-07-95 10:37:00 Test Item Value Reference Range Interpretation Comments INR (test code = INR) 0.97 1 0.85-1.17 [facility] RanhgcdQPSEXCDLMM4670-41-66 10:37:00 Test Item Value Reference Range Interpretation Comments PTT (test code = PTT) 25.0 s 22.9-35.8 [facility] TjveoraYDZTNZVBIE2649-79-14 10:37:0070.5[facility] HermannHEMATOLOGY 2020-08-29 10:37:0018.8[facility] IotdwiaVFPPZVOERP5806-69-38 10:37:009.5[facility] IitirtkHDSPXJVTVI8532-04-56 10:37:000.9[facility] YtfudcvIQTNCKDQKB4666-71-11 10:37:000.3[facility] ZlnbhbcEIGGJOLBSK6380-55-69 10:37:004.8[facility] WDPBFYGMTD0489-62-32 10:37:001.3[facility] UbfhjyyHSCSPTGNDL1832-74-91 10:37:000.6 [facility] ItgtsiqTQIZYXZXZV2736-60-59 10:37:000.1[facility] HermannHEMATOLOGY 2020-08-29 10:37:001+ *ABN*(08/29/20 5:37 AM)[facility] PnqpnhjHVDSJWMPOE3597-94-76 10:37:00Not Detected (08/29/20 5:37 AM)[facility] HermannBLOOD BANK RESULTS 2020-08-29 10:37:00Negative (08/29/20 5:37 AM)[facility] HermannCHEM SNXWO6694-35-32 10:37:00595Rihiccdg HermannCHEM GUFXX3885-26-37 10:37:0028[facility] HermannCHEM AQTPO4607-28-90 10:37:001.01[facility] HermannCHEM ACKDH4869-05-68 10:37:29313 [facility] HermannCHEM MSUVZ5439-88-97 10:37:003.8[facility] HermannCHEM PANEL 2020-08-29 10:37:48621Timmbdax HermannCHEM YZNCS3032-81-30 10:37:0028[facility] HermannCHEM QKZLU2971-81-87 10:37:009.8[facility] HermannCHEM DMBVP5593-19-30 10:37:0011.8[facility] HermannCHEM IAEYA0714-19-03 10:37:0059[facility] HermannCHEM RGOMF8381-49-30 10:37:002.9[facility] WdqujtsBZFAAUVAWA7564-65-93 10:37:006.8 [facility] SnlesjzUJOQQGSRNK6294-62-76 10:37:004.47[facility] HermannHEMATOLOGY 2020-08-29 10:37:0010.6[facility] DsykzqxOKOPGKGDFF4338-99-18 10:37:0034.0[facility] CobjfkeOEITMPMFMW8076-11-40 10:37:0076.1[facility] FukyhmsXWKCDKXCLH1300-48-04 10:37:00 Test Item Value Reference Range Interpretation Comments MCH (test code = MCH) 23.8 pg 27.0-31.0 [facility] LhkmwhkIBUBUSCIMF6272-82-78 10:37:0031.3[facility] HermannHEMATOLOGY 2020-08-29 10:37:0018.2[facility] NkjmtfrDOXUJRSHST1824-30-07 10:37:30709Qxelneoy RedzrqnEDLEUGHQRG2758-43-17 10:37:007.5[facility] NluwzknGTOULYUMOJ0292-34-56 10:37:00 Test Item Value Reference Range Interpretation Comments PT (test code = PT) 12.8 s 12.0-14.7 [facility] DrqwtwzMVSWLJGKRP2002-70-95 10:37:00 Test Item Value Reference Range Interpretation Comments INR (test code = INR) 0.97 1 0.85-1.17 [facility] UwznynmUNRJALNCLW1788-07-35 10:37:00 Test Item Value Reference Range Interpretation Comments PTT (test code = PTT) 25.0 s 22.9-35.8 [facility] DoxrqhzFTIFXUWIXT0659-81-61 10:37:0070.5[facility] HermannHEMATOLOGY 2020-08-29 10:37:0018.8[facility] BmlakdwUAGKXYBDTL6305-93-52 10:37:009.5[facility] DoeuqorIIAKMVQWAD8221-56-89 10:37:000.9[facility] XmqtlssOERJRHMBAN3790-86-20 10:37:000.3[facility] CgvziguDRIDGFRSCQ2223-33-27 10:37:004.8[facility] VUNXCAXHMS9722-73-24 10:37:001.3[facility] XpezivjRPFLBUYAZB8075-49-59 10:37:000.6 [facility] JqskiozBWVQESEJEO7873-54-10 10:37:000.1[facility] HermannHEMATOLOGY 2020-08-29 10:37:001+ *ABN*(08/29/20 5:37 AM)[facility] OxbbnhcZIREQKLTVW6715-07-06 10:37:00Not Detected (08/29/20 5:37 AM)[facility] HermannBLOOD BANK RESULTS 2020-08-29 10:37:00Negative (08/29/20 5:37 AM)[facility] HermannCHEM PAGRX7059-19-63 10:37:07778Lfccypuq HermannCHEM HIKIL1789-29-63 10:37:0028[facility] HermannCHEM ZRXPS6961-78-98 10:37:001.01[facility] HermannCHEM QYRHN1660-86-25 10:37:24104 [facility] HermannCHEM OQKXL4999-96-05 10:37:003.8[facility] HermannCHEM PANEL 2020-08-29 10:37:44764Iomzfnbp HermannCHEM ZQOMK9061-88-54 10:37:0028[facility] HermannCHEM TIUKE1448-94-17 10:37:009.8[facility] HermannCHEM FLEOD7540-20-71 10:37:0011.8[facility] HermannCHEM HZDTR7137-46-00 10:37:0059[facility] HermannCHEM GNQEJ4081-85-44 10:37:002.9[facility] GbcgiymQHPTGBHXUR5527-27-53 10:37:006.8 [facility] JicawipAMDHRCPWGO0981-13-80 10:37:004.47[facility] HermannHEMATOLOGY 2020-08-29 10:37:0010.6[facility] FefbmslQGFFWZGUKI3634-78-70 10:37:0034.0[facility] ZsdaxeuJOVRLLMIRE1891-55-81 10:37:0076.1[facility] UfcrvojXOSGVNRKJB4491-77-13 10:37:00 Test Item Value Reference Range Interpretation Comments MCH (test code = MCH) 23.8 pg 27.0-31.0 [facility] ZgvnlxdBKTETQFXEF8836-21-12 10:37:0031.3[facility] HermannHEMATOLOGY 2020-08-29 10:37:0018.2[facility] DygsfxeCIZVTQHMJX2757-45-18 10:37:49228Ciypfyqy XbbtqbdOXTJYYMEVB6989-80-73 10:37:007.5[facility] CkzusgxTCMWYBKRUB7313-86-65 10:37:00 Test Item Value Reference Range Interpretation Comments PT (test code = PT) 12.8 s 12.0-14.7 [facility] LpttvbbTQTCLFMDCG0306-70-42 10:37:00 Test Item Value Reference Range Interpretation Comments INR (test code = INR) 0.97 1 0.85-1.17 [facility] SboslemIZNKLJPSTO9831-39-00 10:37:00 Test Item Value Reference Range Interpretation Comments PTT (test code = PTT) 25.0 s 22.9-35.8 [facility] AhraqshOCFHDAIZLI8866-50-49 10:37:0070.5[facility] 2020-08-29 10:37:0018.8[facility] NcdsvovKPYBTSNYYI4261-67-71 10:37:009.5[facility] UtqthqiTGEYVBDIIT7642-78-96 10:37:000.9[facility] InnotecFSLMYPGQXH5672-58-86 10:37:000.3[facility] LnbvlhrZQCDQZYZQF8983-25-20 10:37:004.8[facility] HYRZFUFFHM1684-07-74 10:37:001.3[facility] UnyckmnHYGRDZAJJQ3341-49-31 10:37:000.6 [facility] JypyeooCTZKFFMNBC0530-40-08 10:37:000.1[facility] 2020-08-29 10:37:001+ *ABN*(08/29/20 5:37 AM)[facility] JnikncxAQGQOEZNPX8684-13-42 10:37:00Not Detected (08/29/20 5:37 AM)[facility] 2020-08-29 10:37:00Negative (08/29/20 5:37 AM)[facility]annCHEM CDFXU9771-87-81 10:37:04965Mgwwzqih HermannCHEM CQWPN6919-67-69 10:37:0028[facility]annCHEM XNKZU6884-45-35 10:37:001.01[facility]annCHEM NIWHH5774-49-14 10:37:33039 [facility] KKHLC9957-34-32 10:37:003.8[facility]annCHEM PANEL 2020-08-29 10:37:75198Rivzavyb HermannCHEM OCEFO2891-32-09 10:37:0028[facility]annCHEM YWNUJ8906-96-50 10:37:009.8[facility]annCHEM GOFVW3030-47-28 10:37:0011.8[facility]annCHEM TBHVV9653-10-92 10:37:0059[facility]annCHEM RRHHZ2225-95-99 10:37:002.9[facility] XxjsoxtUDBIBYAMFD7916-92-20 10:37:006.8 [facility] AxnytbdRQUFJXEJKD7944-40-77 10:37:004.47[facility]annHEMATOLOGY 2020-08-29 10:37:0010.6[facility] SaxsayfSGFVRTNMUN6164-84-90 10:37:0034.0[facility] GzztznwVHYCNNAPCV2272-89-54 10:37:0076.1[facility] RrhrxefWABTGZBVHV5256-76-07 10:37:00 Test Item Value Reference Range Interpretation Comments MCH (test code = MCH) 23.8 pg 27.0-31.0 [facility] PqnbwrsTIEZMLVNUQ1829-08-79 10:37:0031.3[facility]annHE[facility]OLOGY 2020-08-29 10:37:0018.2[facility] UxsypwtXMOHGQYEEO2890-28-56 10:37:94261[place]ot XelbuywDXQLCHICOW3005-91-69 10:37:007.5[facility] ClfuzlwLIQNCYLCRE9297-94-70 10:37:00 Test Item Value Reference Range Interpretation Comments PT (test code = PT) 12.8 s 12.0-14.7 [facility] GrgmjrrWFNBFIWXYY0145-20-00 10:37:00 Test Item Value Reference Range Interpretation Comments INR (test code = INR) 0.97 1 0.85-1.17 [facility] PmnblfqQUCNIRDNRC0757-13-40 10:37:00 Test Item Value Reference Range Interpretation Comments PTT (test code = PTT) 25.0 s 22.9-35.8 [facility] YlaslcrLAPCDWFFPL5285-33-88 10:37:0070.5[facility]annHEMATOLOGY 2020-08-29 10:37:0018.8[facility] QmszlmkASOGUMKERQ3837-53-32 10:37:009.5[facility] ZvbrurwEYBLNBXGWG2986-04-21 10:37:000.9[facility] VenohrqVDHTMCCNGV5997-52-30 10:37:000.3[facility] HseicmfKCHEAVXXBT6241-93-67 10:37:004.8[facility] HKFUNUAXHH6488-89-56 10:37:001.3[facility] ZglmmoqFEONVTGEOI8023-12-89 10:37:000.6 [facility] NsmwngdLWYCWTCJZO1828-24-34 10:37:000.1[facility]annHEMATOLOGY 2020-08-29 10:37:001+ *ABN*(08/29/20 5:37 AM)[facility] WtxecsyIVKTLYMTNI5827-45-46 10:37:00Not Detected (08/29/20 5:37 AM)[facility] RESULTS 2020-08-29 10:37:00Negative (08/29/20 5:37 AM)[facility]annCHEM ROLLF3679-50-26 10:37:91202Lshmqmlv HermannCHEM KLBVI4660-88-96 10:37:0028[facility]annCHEM HZMAG6690-24-03 10:37:001.01[facility] HermannCHEM ZYIZO7197-84-39 10:37:07565 [facility]annCHEM HCAPQ3088-22-42 10:37:003.8[facility] HermannCHEM PANEL 2020-08-29 10:37:30077Gdpmecwx HermannCHEM RWSQD9405-76-57 10:37:0028[facility]annCHEM UPOWX6552-44-30 10:37:009.8[facility]annCHEM ZQXJU2366-47-93 10:37:0011.8[facility] HermannCHEM PDMQS5093-89-86 10:37:0059[facility]annCHEM DTLME7287-87-33 10:37:002.9[facility] GitvtlxXXOHVONQOM1513-59-58 10:37:006.8 [facility] YlfpcwcUKVWXRBILG4524-76-62 10:37:004.47[facility]annHEMATOLOGY 2020-08-29 10:37:0010.6[facility] OxomotmFHSJCJCFTD1030-00-66 10:37:0034.0[facility] IkjnbxyILONRDFIES0917-71-40 10:37:0076.1[facility] WhydfarZGAGPCHCCY2301-05-31 10:37:00 Test Item Value Reference Range Interpretation Comments MCH (test code = MCH) 23.8 pg 27.0-31.0 [facility] NwgogozVYGRJUFAYB1950-44-72 10:37:0031.3[facility]annHEMATOLOGY 2020-08-29 10:37:0018.2[facility] NicimieXTZUDTYVSG3493-69-05 10:37:65482Vmyyjfgu JhkydnjZONWTCXNRY8043-54-83 10:37:007.5[facility] PgstdqjMEJUZPVNGZ4308-55-95 10:37:00 Test Item Value Reference Range Interpretation Comments PT (test code = PT) 12.8 s 12.0-14.7 [facility] QmqrljbGUAIZGODCK0746-60-57 10:37:00 Test Item Value Reference Range Interpretation Comments INR (test code = INR) 0.97 1 0.85-1.17 [facility] HseamxzTOFQQEESRV3354-05-92 10:37:00 Test Item Value Reference Range Interpretation Comments PTT (test code = PTT) 25.0 s 22.9-35.8 [facility] QluekpkDJMKRNWPEJ0340-75-17 10:37:0070.5[facility]annHEMATOLOGY 2020-08-29 10:37:0018.8[facility] VswhaevKFSBKYXAKB2915-07-24 10:37:009.5[facility] FaatwqmZEYVBLVTXQ4968-73-59 10:37:000.9[facility] PtmxaciLBYMLXCAXG5066-17-23 10:37:000.3[facility] RiptlubEYVAFYCHFE1401-34-41 10:37:004.8[facility] WPATLGHVKD2912-92-05 10:37:001.3[facility] EqtifpkCCFCPTPFLN8990-99-46 10:37:000.6 [facility] BvnpsdeIENSLKJGPO3825-81-42 10:37:000.1[facility]annHEMATOLOGY 2020-08-29 10:37:001+ *ABN*(08/29/20 5:37 AM)[facility] AlblbngHCACTPQJLM2346-58-03 10:37:00Not Detected (08/29/20 5:37 AM)[facility]annBLOOD BANK RESULTS 2020-08-29 10:37:00Negative (08/29/20 5:37 AM)[facility]annCHEM CONGQ7927-81-50 10:37:22677Fqqoortf HermannCHEM VBNJZ8689-53-74 10:37:0028[facility] HermannCHEM GDQGX7561-48-07 10:37:001.01[facility] HermannCHEM PJWBP2718-04-89 10:37:75294 [facility]annCHEM QHJJP2640-26-37 10:37:003.8[facility] HermannCHEM PANEL 2020-08-29 10:37:32482Vcukecti HermannCHEM ICRTE0927-95-75 10:37:0028[facility] HermannCHEM BKGRL2357-10-35 10:37:009.8[facility] HermannCHEM HFQDU3549-54-15 10:37:0011.8[facility] HermannCHEM RFYKE8645-79-54 10:37:0059[facility]annCHEM ONHPD0484-85-48 10:37:002.9[facility] XnxisjtRLICHVAJDA6305-36-67 10:37:006.8 [facility] VzodgmsZLLDFPDDGF4749-62-30 10:37:004.47[facility]annHEMATOLOGY 2020-08-29 10:37:0010.6[facility] LednrdhXUXJZAZPQE3620-40-93 10:37:0034.0[facility] QzbminjMIIUEFHVFO8944-17-87 10:37:0076.1[facility] PtjxwfpLWJWVYFRZM5731-64-67 10:37:00 Test Item Value Reference Range Interpretation Comments MCH (test code = MCH) 23.8 pg 27.0-31.0 [facility] DdynyueSUQCBIGPCC7757-24-63 10:37:0031.3[facility] HermannHEMATOLOGY 2020-08-29 10:37:0018.2[facility] KjbufveWXSQRUHYEE5414-01-02 10:37:98157Nylqfvgk FvfkmyxXIQGJTSAVN7689-16-92 10:37:007.5[facility] QnnvsfySQDKPPLRBS2217-33-67 10:37:00 Test Item Value Reference Range Interpretation Comments PT (test code = PT) 12.8 s 12.0-14.7 [facility] PutpbdgLVNOONGHSI6637-40-69 10:37:00 Test Item Value Reference Range Interpretation Comments INR (test code = INR) 0.97 1 0.85-1.17 [facility] BqvhaiuITGDWHJGLE1274-60-01 10:37:00 Test Item Value Reference Range Interpretation Comments PTT (test code = PTT) 25.0 s 22.9-35.8 [facility] PwolrolVOWMEXDHGA0870-26-68 10:37:0070.5[facility]annHEMATOLOGY 2020-08-29 10:37:0018.8[facility] WtfkojbHAULIKISLA1537-90-47 10:37:009.5[facility] CyiwpetYQCLVLAGIZ0964-89-26 10:37:000.9[facility] RpwvsaxPAWQNYMEWT1894-46-60 10:37:000.3[facility] AxnbzdlAQJYVGYGFW1662-95-91 10:37:004.8[facility] LFNBOTKPGW7453-04-59 10:37:001.3[facility] TgnkxjpYBSZVYGHZC3656-38-29 10:37:000.6 [facility] EqrhpavHMGTSRNCZV7753-30-33 10:37:000.1[facility] HermannHEMATOLOGY 2020-08-29 10:37:001+ *ABN*(08/29/20 5:37 AM)[facility] WamdoorFJDGVFJFDZ2118-93-83 10:37:00Not Detected (08/29/20 5:37 AM)[facility], TV,PCR, IN IKYLT7787-52-66 15:38:00 Test Item Value Reference Range Interpretation Comments FT (test code = CHTR) Not detected (qualifier Not Detected N value) FT (test code = Not detected (qualifier Not Detected N NGONO) value) FT (test code = TRVG) Not detected (qualifier Not Detected N value) [facility] LEUWPIROVJR3619-50-34 10:57:00 Test Item Value Reference Range Interpretation Comments Color (test code = UCOLR) Dk. Yellow Clarity (test code = UCLAR) Hazy Glucose (test code = UGLUC) NEGATIVE NEGATIVE N Bilirubin (test code = UBILI) NEGATIVE NEGATIVE N Ketones (test code = UKET) NEGATIVE NEGATIVE N Specific [place] (test code = 1.025 1.005-1.030 A USPGR) [...] = None Seen None Seen N URCRYS) [facility]"
--- NOTE | 2022-07-13 16:01 | RAD REPORT ---
EXAM DESCRIPTION: CT - Head C Spine Cap Wo Con - 07/13/2022 3:15 pm CLINICAL HISTORY: TRAUMA. Syncopal episode. COMPARISON: Head C Spine Cap Wo Con dated 02/07/2022; Head C Spine Cap Wo Con dated 01/15/2022; Head C Spine Cap Wo Con dated 04/03/2021; Head C Spine Cap W Con dated 03/05/2021 TECHNIQUE: Head and cervical spine CT images were obtained without IV contrast. Chest, abdomen, and pelvis CT images were obtained following intravenous administration of 90 mL Isovue-300. Multiplanar reformats were generated and reviewed. All CT scans are performed using dose optimization technique as appropriate and may include automated exposure control or mA/KV adjustment according to patient size. FINDINGS: CT HEAD: No intracranial hemorrhage, mass effect, or edema. No evidence of acute territorial infarct. No midli ne shift or abnormal fluid collection. The ventricles are normal in caliber and configuration for age . Stable patchy deep white matter hypodensities, nonspecific but most suggestive of chronic small ves kary ischemic changes. Basal cisterns are patent. Mastoid aircells and paranasal sinuses are clear. No acute skull fracture. CT CERVICAL SPINE: No acute cervical spine fracture or subluxation. Straightening of normal cervical lordosis. Vertebral body heights are well maintained. Multilevel facet joint degenerative changes and endplate spurring, stable. No hyperattenuating canal hematoma. Prevertebral and paraspinous soft tissues are unremarkab le. CT CHEST: No pneumothorax, pulmonary contusion or pleural fluid collection. No mediastinal hematoma. The ascend ing aorta is at the upper limit of normal in caliber, 4 centimeter, stable. Prominent caliber of the main pulmonary artery is again noted, suggesting underlying pulmonary hypertension. Prosthesis which may be within the left atrial appendage is stable. No chest will mass or abnormal axillary finding. N o displaced rib fracture or other significant bony finding. CT ABDOMEN/ PELVIS: No evidence of traumatic injury to solid abdominal viscera. Gallbladder and biliary tree are unremark able. Multiple exophytic bilateral renal fluid density cysts, grossly stable, the largest at the left superior pole, measuring 5.4 centimeter in greatest diameter. Status post cholecystectomy. No bowel injury or significant finding. No free air, free fluid or abnormal fat stranding. No urinary bladder abnormality. No significant bony finding. IMPRESSION: No acute abnormality of the brain or cervical spine. Multilevel cervical spine degenerative changes, grossly stable. No acute abnormalities within the chest. 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 Please correlate clinically for presence of pulmonary hypertension. No acute abnormality within the abdomen and pelvis. Stable incidental findings as above.
--- NOTE | 2022-07-13 16:02 | ER ---
Nurse's Notes [facility] Name: Marjan Kolb Age: 67 yrs Sex: Female : 1955 Arrival Date: 07/13/2022 Time: 14:35 Bed 26 Private MD: Diagnosis: Syncope Near;Essential (primary) hypertension;Unspecified injury of head, initial encounter;Fall on same level, unspecified;Bradycardia, unspecified;Unspecified kidney failure-INSUFFICENCY Presentation: 07/13 14:41 Chief complaint: EMS states: Had a syncopal episode, fell and hit her head, does take ph Plavix, 12 lead showed bradycardia w/ rate in 40s, BP WNL, no obvious injuries, pt c/o low back pain which is chronic. Coronavirus screen: Vaccine status: Patient reports receiving the 2nd dose of the covid vaccine. Ebola Screen: No symptoms or risks identified at this time. Initial Sepsis Screen: Does the patient meet any 2 criteria? No. Patient's initial sepsis screen is negative. Does the patient have a suspected source of infection? No. Patient's initial sepsis screen is negative. Risk Assessment: Do you want to hurt yourself or someone else? Patient reports no desire to harm self or others. Onset of symptoms was July 13, 2022. 14:41 Method Of Arrival: EMS: [facility] ph 14:41 Acuity: BLAYNE 2 ph Triage Assessment: 14:45 General: Appears in no apparent distress. comfortable, Behavior is calm, cooperative, ph appropriate for age. Pain: Complains of pain in back and buttocks. Neuro: Level of Consciousness is awake, alert, obeys commands, Oriented to person, place, time, situation. Cardiovascular: Capillary refill < 3 seconds in bilateral fingers Patient's skin is warm and dry. Respiratory: Airway is patent Respiratory effort is even, unlabored, Respiratory pattern is regular, symmetrical. GI: No signs and/or symptoms were reported involving the gastrointestinal system. Derm: Skin is fragile, is thin, Skin is pink, warm \\T\\ dry. bruises in multiple stages of healing noted to bilateral arms. Musculoskeletal: Circulation, motion, and sensation intact. Range of motion: intact in all extremities. Historical: - Allergies: 14:43 Azithromycin; ph 14:43 Bactrim; ph 14:43 butorphanol; ph 14:43 Fentanyl; ph 14:43 Reglan; ph 14:43 Sulfa (Sulfonamide Antibiotics); ph 14:43 TRIMETHOPRIM; ph - PMHx: 14:43 Anxiety; Atrial fibrillation; Bipolar disorder; esophageal varicies; Hepatitis; HIV ph positive; Hypertensive disorder; Migraine; panic attack; - Immunization history:: Adult Immunizations not immunized. - Social history:: Smoking status: Patient reports the use of cigarette tobacco products, smokes one-half pack cigarettes per day. Screenin:44 [facility] ED Fall Risk Assessment (Adult) History of falling in the last 3 months, ph including since admission Yes- fall prone (multiple falls) (3 pts) Confusion or Disorientation No (0 pts) Intoxicated or Sedated No (0 pts) Impaired Gait Yes (1 pt) Mobility Assist Device Used No (0 pt) Altered Elimination No (0 pt) Score/Fall Risk Level 3 or more points = High Risk Oriented to surroundings, Maintained a safe environment, Hourly rounding (assess needs \\T\\ fall precautionary measures) done. Abuse screen: Denies threats or abuse. Denies injuries from another. Nutritional screening: No deficits noted. Tuberculosis screening: No symptoms or risk factors identified. Assessment: 15:00 General: SEE TRIAGE ASSESSMENT. ph 16:00 Reassessment: Patient appears in no apparent distress at this time. Patient and/or ph family updated on plan of care and expected duration. Pain level reassessed. Patient is alert, oriented x 3, equal unlabored respirations, skin warm/dry/pink. Pt c/o pain to low back area, states, " Last time I was here Dr Kolb gave me xanax and dilaudid and it really helped, do you think he'll give me that again." Provider notified of pt's request, no further orders at this time. 17:00 Reassessment: Patient appears in no apparent distress at this time. Patient and/or ph family updated on plan of care and expected duration. Pain level reassessed. Patient is alert, oriented x 3, equal unlabored respirations, skin warm/dry/pink. Vital Signs: 14:41 BP 192 / 111; Pulse 52; Resp 18; Temp 97.9; Pulse Ox 100% on R/A; Weight 76.2 kg; ph Height 5 ft. 4 in. (162.56 cm); 16:00 BP 192 / 101; Pulse 56; Resp 18; Pulse Ox 98% on R/A; ph 17:00 BP 187 / 89; Pulse 54; Resp 16; Pulse Ox 98% on R/A; ph 17:58 BP 201 / 111; Pulse 54; Resp 18; Pulse Ox 98% on R/A; ph 14:41 Body Mass Index 28.84 (76.20 kg, 162.56 cm) ph [place] Coma Score: 15:55 Eye Response: spontaneous(4). Verbal Response: oriented(5). Motor Response: obeys thomas commands(6). Total: 15. ED Course: 14:35 Patient arrived in ED. bp 14:36 Justus Kolb MD is Attending Physician. thomas 14:43 Triage completed. ph 14:44 Arm band placed on Patient placed in an exam room, on a stretcher, on assurance assistant, ph on pulse oximetry. 14:45 Patient has correct armband on for positive identification. Placed in gown. Bed in low ph position. Call light in reach. Side rails up X2. Client placed on continuous cardiac and pulse oximetry monitoring. NIBP monitoring applied. 15:01 Solange Bennett, RN is Primary Nurse. ph 15:59 Brandon Shin is Hospitalizing Provider. thomas 16:18 Initial lab(s) drawn, by me, sent to lab. Inserted saline lock: 24 gauge in right ph ,using aseptic technique. thumb Blood collected. 17:58 No provider procedures requiring assistance completed. Patient admitted, IV remains in ph place. Administered Medications: No medications were administered Medication: 14:44 VIS not applicable for this client. ph Outcome: 16:01 Decision to Hospitalize by Provider. thomas 22:57 Patient left the ED. eh3 Signatures: Justus Kolb MD MD cha Hall, Patricia, RN RN Carlos Eduardo Mckinney, RN Yazmin Wilhelm RN RN 3
--- NOTE | 2022-07-13 16:02 | EDPHYS ---
Physician Documentation [facility] Name: Marjan Kolb Age: 67 yrs Sex: Female : 1955 Arrival Date: 07/13/2022 Time: 14:35 Bed 26 Private MD: Justus Cervantes HPI: 07/13 14:57 This 67 yrs old Female presents to ER via EMS with complaints of syncope and thomas weakness. 14:57 The patient or guardian reports injury, swelling, tenderness. The complaints affect the thomas left side of the back of head, left occipital area, left base of the skull, right side of the back of head, right occipital area and right base of the skull. Context of injury: The problem was sustained at home. Onset: The symptoms/episode began/occurred just prior to arrival. Associated signs and symptoms: Loss of consciousness: This patient did not experience any loss of consciousness. The patient presents with a history of irregular heart beat. Context: The symptoms occur at rest. Modifying factors: The symptoms are aggravated by nothing. The symptoms are alleviated by nothing. Historical: - Allergies: 14:43 Azithromycin; ph 14:43 Bactrim; ph 14:43 butorphanol; ph 14:43 Fentanyl; ph 14:43 Reglan; ph 14:43 Sulfa (Sulfonamide Antibiotics); ph 14:43 TRIMETHOPRIM; ph - PMHx: 14:43 Anxiety; Atrial fibrillation; Bipolar disorder; esophageal varicies; Hepatitis; HIV ph positive; Hypertensive disorder; Migraine; panic attack; - Immunization history:: Adult Immunizations not immunized. - Social history:: Smoking status: Patient reports the use of cigarette tobacco products, smokes one-half pack cigarettes per day. ROS: 15:52 Constitutional: Negative for fever, chills, and weight loss, Eyes: Negative for injury, thomas pain, redness, and discharge, ENT: Negative for injury, pain, and discharge, Neck: Negative for injury, pain, and swelling, Respiratory: Negative for shortness of breath, cough, wheezing, and pleuritic chest pain, Abdomen/GI: Negative for abdominal pain, nausea, vomiting, diarrhea, and constipation, Back: Negative for injury and pain, : Negative for injury, bleeding, discharge, and swelling, MS/Extremity: Negative for injury and deformity, Skin: Negative for injury, rash, and discoloration, Psych: Negative for depression, anxiety, suicide ideation, homicidal ideation, and hallucinations, Allergy/Immunology: Negative for hives, rash, and allergies, Endocrine: Negative for neck swelling, polydipsia, polyuria, polyphagia, and marked weight changes. 15:52 Cardiovascular: Positive for palpitations. 15:52 Neuro: Positive for dizziness, headache, syncope, near syncope. Exam: 15:52 Constitutional: This is a well developed, well nourished patient who is awake, alert, thomas and in no acute distress. Eyes: Pupils equal round and reactive to light, extra-ocular motions intact. Lids and lashes normal. Conjunctiva and sclera are non-icteric and not injected. Cornea within normal limits. Periorbital areas with no swelling, redness, or edema. ENT: Nares patent. No nasal discharge, no septal abnormalities noted. Tympanic membranes are normal and external auditory canals are clear. Oropharynx with no redness, swelling, or masses, exudates, or evidence of obstruction, uvula midline. Mucous membranes moist. Neck: Trachea midline, no thyromegaly or masses palpated, and no cervical lymphadenopathy. Supple, full range of motion without nuchal rigidity, or vertebral point tenderness. No Meningismus. Chest/axilla: Normal chest wall appearance and motion. Nontender with no deformity. No lesions are appreciated. Respiratory: Lungs have equal breath sounds bilaterally, clear to auscultation and percussion. No rales, rhonchi or wheezes noted. No increased work of breathing, no retractions or nasal flaring. Abdomen/GI: Soft, non-tender, with normal bowel sounds. No distension or tympany. No guarding or rebound. No evidence of tenderness throughout. Back: No spinal tenderness. No costovertebral tenderness. Full range of motion. Female : Normal external genitalia. Skin: Warm, dry with normal turgor. Normal color with no rashes, no lesions, and no evidence of cellulitis. MS/ Extremity: Pulses equal, no cyanosis. Neurovascular intact. Full, normal range of motion. Psych: Awake, alert, with orientation to person, place and time. Behavior, mood, and affect are within normal limits. 15:52 Head/face: Noted is contusion, that is superficial, of the right occipital area. 15:52 Cardiovascular: Rate: bradycardic, actual rate is 52 bpm, Rhythm: regular, Pulses: Pulses are 4+ in bilateral radial, brachial, femoral, popliteal, posterior tibial and and dorsalis pedis arteries.. Heart sounds: normal, Edema: is not appreciated, JVD: is not appreciated. 15:52 Neuro: Orientation: is normal, appropriate for stated age, no acute changes, Mentation: is normal, appropriate for stated age, no acute changes, Memory: is normal, appropriate for stated age, no acute changes, Cranial nerves: is grossly normal based on the patient's age, no acute changes, Cerebellar function: is grossly normal, no acute changes, Motor: is normal, is grossly normal based on the patient's age, no acute changes, moves all fours, strength is normal, strength is 5/5 in all extremities, Sensation: no obvious gross deficits, appropriate no acute changes, Gait: not tested. Babinski testing is normal, seizure activity, is not displayed by the patient. 16:04 ECG was reviewed by the Attending Physician. [facility] Vital Signs: 14:41 BP 192 / 111; Pulse 52; Resp 18; Temp 97.9; Pulse Ox 100% on R/A; Weight 76.2 kg; ph Height 5 ft. 4 in. (162.56 cm); 16:00 BP 192 / 101; Pulse 56; Resp 18; Pulse Ox 98% on R/A; ph 17:00 BP 187 / 89; Pulse 54; Resp 16; Pulse Ox 98% on R/A; ph 17:58 BP 201 / 111; Pulse 54; Resp 18; Pulse Ox 98% on R/A; ph 14:41 Body Mass Index 28.84 (76.20 kg, 162.56 cm) ph Crystal Coma Score: 15:55 Eye Response: spontaneous(4). Verbal Response: oriented(5). Motor Response: obeys [facility] commands(6). Total: 15. MDM: 14:36 Patient medically screened. [facility] 15:55 Differential diagnosis: Contusion of Hematoma on Intracranial bleed- Concussion thomas cerebral contusion, arrythmia, dehydration. Differential Diagnosis: cardiac arrhythmia, cerebrovascular accident, GI bleed, pseudo seizure, seizure, vasovagal episode. Data reviewed: vital signs, nurses notes, EMS record, lab test result(s), EKG, radiologic studies, CT scan, plain films. Consideration of Admission/Observation Patient was admitted/placed on observation. Escalation of care including admission/observation considered. Management of patient was discussed with the following: Hospitalist: tiffany , agreed to admit. Independent interpretation of the following test(s) in the Emergency Department monitoring tech: rate is 52 beats/min, Rhythm is sinus bradycardia. Test considered but Not performed: EKG: hanna. 07/13 14:39 Order name: Basic Metabolic Panel [facility] 07/13 14:39 Order name: CBC with Diff [facility] 07/13 14:39 Order name: LFT's [facility] 07/13 14:39 Order name: Magnesium [facility] 07/13 14:39 Order name: NT PRO-BNP [facility] 07/13 14:39 Order name: PT-INR [facility] 07/13 14:39 Order name: Troponin HS [facility] 07/13 14:39 Order name: Lipase [facility] 07/13 14:39 Order name: SARS RAPID [facility] 07/13 14:39 Order name: TSH [facility] 07/13 16:33 Order name: CBC with Automated Diff; Complete Time: 16:41 EDAL 07/13 16:46 Order name: SARS-COV-2 Antigen Rapid; Complete Time: 17:16 EDAL 07/13 16:53 Order name: Basic Metabolic Panel; Complete Time: 17:16 EDAL 07/13 16:53 Order name: Liver (Hepatic) Function; Complete Time: 17:16 EDAL 07/13 14:39 Order name: XRAY Chest (1 view) [facility] 07/13 14:39 Order name: EKG; Complete Time: 14:42 [facility] 07/13 14:39 Order name: CT Traumagram (Head C Spine CAP wo con) [facility] 07/13 16:01 Order name: CT; Complete Time: 16:20 EDAL 07/13 16:28 Order name: RAD; Complete Time: 16:28 EDAL 07/13 16:53 Order name: Troponin High Sensitivity; Complete Time: 17:16 EDAL 07/13 16:53 Order name: NT PRO-BNP; Complete Time: 17:16 EDAL 07/13 16:53 Order name: Magnesium; Complete Time: 17:16 EDAL 07/13 16:53 Order name: Lipase; Complete Time: 17:16 EDAL 07/13 16:53 Order name: Thyroid Stimulating Hormone; Complete Time: 17:16 EDAL 07/13 17:30 Order name: Protime (+INR) [facility]MS 07/13 20:24 Order name: Phosphorus EDAL 07/13 20:24 Order name: T4 Free [facility] 07/13 20:24 Order name: Magnesium [facility] 07/13 20:24 Order name: Thyroid Stimulating Hormone [facility] 07/13 14:39 Order name: Cardiac monitoring; Complete Time: 14:48 [facility] 07/13 14:39 Order name: EKG - Nurse/Tech; Complete Time: 16:17 [facility] 07/13 14:39 Order name: IV Saline Lock; Complete Time: 16:17 [facility] 07/13 14:39 Order name: Labs collected and sent; Complete Time: 16:17 [facility] 07/13 14:39 Order name: O2 Per Protocol; Complete Time: 14:48 [facility] 07/13 14:39 Order name: O2 Sat Monitoring; Complete Time: 14:48 [facility] EC:04 Rate is 51 beats/min. Rhythm is regular. QRS Valier is Normal. AK interval is normal. QRS thomas interval is normal. QT interval is prolonged at 530 msec. No Q waves. T waves are Normal. No ST changes noted. Clinical impression: Sinus bradycardia and No evidence of ischemia. Interpreted by me. Reviewed by me. Administered Medications: No medications were administered Disposition Summary: 07/13/22 16:01 Hospitalization Ordered Hospitalization Status: Observation thomas Provider: Brandon Shin cha Condition: Fair thomas Problem: new thomas Symptoms: have improved thomas Bed/Room Type: Standard thomas Location: Telemetry/MedSurg (observation)(07/13/22 21:45) cg Room Assignment: [facility](07/13/22 21:45) Diagnosis - Syncope Near thomas - Essential (primary) hypertension thomas - Unspecified injury of head, initial encounter thomas - Fall on same level, unspecified thomas - Bradycardia, unspecified thomas - Unspecified kidney failure - INSUFFICENCY thomas Forms: - Medication Reconciliation Form thomas - SBAR form thomas Signatures: Dispatcher [employer] Justus Long MD MD cha Hall, Patricia, RN RN Stefanie Camarillo RN RN cg Corrections: (The following items were deleted from the chart) 20:21 16:01 Telemetry/MedSurg (observation) thomas cg 20:21 16:01 thomas cg 21:45 20:21 [facility] ER HOLD cg cg 21:45 20:21 ERHOLD- cg cg
--- NOTE | 2022-07-13 16:27 | RAD REPORT ---
[facility] 3[facility]53 [facility] CLINICAL HISTORY: COUGH. Syncopal episode and fall. COMPARISON: Chest Pa And Lat (2 Views) dated 07/01/2022; Chest Single View dated 06/24/2022; Chest Singl e View dated 06/01/2022; Chest Single View dated 05/09/2022 TECHNIQUE: Portable AP view of the chest. FINDINGS: The lungs are clear.Left basilar atelectasis. No pneumothorax or effusion. Stable mild car diomegaly. 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 IMPRESSION: No acute pulmonary process. Stable mild cardiomegaly.
[2022-07-13 16:32] LABS: Absolute Lymphocytes (CBC) 0.9 K/uL (0.7-4.9); Hematocrit 37.8 % (36.0-45.0); Lymphocytes % 17.8 % (15.3-44.8); MCV 87.9 fL (80-100); MPV 7.1 fL (7.6-11.3)
[2022-07-13 16:46] LABS: SARS-CoV-2 Antigen Rapid Res Negative (Negative)
[2022-07-13 16:53] LABS: Albumin 3.6 g/dL (3.4-5.0); Bilirubin Direct 0.2 mg/dL (0-0.2); Bilirubin Total 0.5 mg/dL (0.2-1.0); Magnesium 2.2 mg/dL (1.6-2.4); Potassium 3.5 mmol/L (3.5-5.1); Protein, Total 7.7 g/dL (6.4-8.2); Thyroid Stimulating Hormone 1.67 uIU/mL (0.358-3.740); Troponin High Sensitivity 13.4 pg/mL (<58.9)
[2022-07-13] MEDS ORDERED: ALBUTEROL 2.5 MG/3 ML NEB SOL NEB PRN (17:14)
[2022-07-13] MEDS ORDERED: ACETAMINOPHEN 325 MG TABLET PO PRN (17:14)
--- NOTE | 2022-07-13 17:16 | P.HP ---
Certification for Inpatient Patient admitted to: Observation With expected LOS: <2 Midnights Patient will require the following post-hospital care: None Practitioner: I am a practitioner with admitting privileges, knowledge of patient current condition, hospital course, and medical plan of care. Services: Services provided to patient in accordance with Admission requirements found in Title 42 Section 412.3 of the Code of Federal Regulations Patient History Date of Service: 07/13/22 Reason for admission: Syncope History of Present Illness: Patient is a 67-year-old female with a past medical history significant for anxiety disorder, atrial fibrillation, bipolar disorder, HIV, chronic back pain who presents with complaint of syncope. Patient reported that she was in the kitchen today when she is felt slightly dizzy and eventually had a syncopal episode. Patient reported that she hit her head.. Patient reported associated signs and symptoms of weakness in upper\lower extremity weakness and shortness of breath. Patient denies any other signs and symptoms. Symptoms are aggravated or relieved by nothing. Patient decided to present to the hospital for medical evaluation. Allergies fentanyl Allergy (Severe, Verified 03/15/22 14:38) Hives adhesive tape Allergy (Verified 03/16/22 10:43) Rash butorphanol tartrate [From Stadol] Allergy (Verified 03/15/22 14:38) confusion metoclopramide HCl [From Reglan] Allergy (Verified 03/15/22 14:38) Shortness of breath sulfamethoxazole [From Bactrim] Allergy (Verified 03/15/22 14:38) Hives/Rash trimethoprim [From Bactrim] Allergy (Verified 03/15/22 14:38) Hives/Rash Bactrim DS Allergy (Intermediate, Uncoded 03/15/22 14:38) Nausea/Vomiting Home Medications: Raltegravir Potassium [Isentress] 1 tab PO BID 02/28/12 Sertraline [Zoloft*] 2 tab PO BID 09/15/12 Metoprolol Tartrate 100 mg PO BID #60 tablet 02/03/20 Emtricitabine/Tenofov Alafenam [Descovy 200-25 mg Tablet] 1 tab PO DAILY 03/05/21 Amlodipine Besylate 1 tab PO DAILY 03/30/21 Dexlansoprazole [Dexilant] 60 mg PO DAILY 03/30/21 Clopidogrel Bisulfate [Plavix*] 1 tab PO DAILY 10/16/21 Trazodone [Desyrel*] 1 tab PO BEDTIME 10/16/21 buPROPion HCL [Wellbutrin Xl] 1 tab PO DAILY 10/16/21 Spironolactone [Aldactone*] 25 mg PO DAILY #30 tab 02/04/22 Hydromorphone [Dilaudid*] 2 mg PO DAILY 03/15/22 Losartan Potassium [Cozaar*] 50 mg PO BID #60 tablet 04/25/22 - Past Medical/Surgical History Diabetic: No -: HIV- viral load currently undectable -: CAD -: Bipolar disorder -: Hypertension -: COPD on home O2 @ 2L -: Tobacco abuse -: former Alcohol abuse -: Anemia of chronic disease -: Hyperlipidemia -: GERD with hiatal hernia -: Atrial fibrillation-paroxysmal -: Chronic diastolic CHF -: Appendectomy -: Cholecystectomy -: left and right shoulder rotator cuff repair -: Right foot repair -: Right shoulder replacement -: right wrist -: hiatal hernia repair february 2021 -: right wrist Psychosocial/ Personal History: She lives at home. She is newly . - Family History Father -: Heart disease, Hypertension, Lung disease, GI disease, Stroke, Cancer, Liver disease, Kidney disease Notes: Colon cancer Mother -: Hypertension, Lung disease, GI disease, Blood disorders, Other (see notes) Notes: Epilepsy, chronic pain, leukemia - Social History Smoking Status: Former smoker Alcohol use: No CD- Drugs: No Caffeine use: No Place of Residence: Home Review of Systems General: Unremarkable Eyes: Unremarkable ENT: Unremarkable Respiratory: Shortness of Breath Cardiovascular: Unremarkable Gastrointestinal: Unremarkable Genitourinary: Unremarkable Musculoskeletal: Back Pain, Unremarkable Integumentary: Unremarkable Neurological: Weakness, Other (Syncope, Dizziness ) Lymphatics: Unremarkable Physical Examination - Physical Exam General: Alert, In no apparent distress, Oriented x3, Cooperative HEENT: Atraumatic, PERRLA, Mucous membr. moist/pink, EOMI, Sclerae nonicteric Neck: Supple, 2+ carotid pulse no bruit, No LAD, Without JVD or thyroid abnormality Respiratory: Clear to auscultation bilaterally, Normal air movement Cardiovascular: Regular rate/rhythm, Normal S1 S2 Capillary refill: <2 Seconds Gastrointestinal: Normal bowel sounds, No tenderness Musculoskeletal: Tenderness Integumentary: No rashes Neurological: Normal speech, Normal tone, Normal affect Lymphatics: No axilla or inguinal lymphadenopathy - Studies Laboratory Data (last 24 hrs) 07/13/22 16:10: WBC 5.00, Hgb 12.7, Hct 37.8, Plt Count 117 L 07/13/22 16:10: Sodium 138, Potassium 3.5, BUN 27 H, Creatinine 1.15 H, Glucose 87, Magnesium 2.2, Total Bilirubin 0.5, AST 33, ALT 19, Alkaline Phosphatase 101, Lipase 125 Assessment and Plan - Plan --Syncope. Unclear etiology. Echocardiogram to assess LV\valvular function and wall motion. Carotid Doppler to rule out any carotid artery stenosis. We will get some orthostatic vital signs. Cardiology consulted. We await further recommendations. -- HIV. Continue home medication. --Paroxysmal atrial fibrillation. Continue metoprolol when appropriate.. Telemetry to monitor for any malignant arrhythmia. --Anxiety disorder\bipolar disorder. Continue home medications. --Chronic back pain. We will manage pain with current pain medication regimen. --Anxiety disorder. Continue home medication. -- Thrombocytopenia. Unclear etiology. Continue supportive care. --Hypertension. We will hold off on beta-vitor due to bradycardia. Continue other home medications and hydralazine as needed. --Bradycardia. We will hold off on beta-vitor. Telemetry to monitor for any malignant arrhythmia. Echocardiogram pending. Further management per voice data communications engineer. --GERD. Continue home medication. --History of CAD. Continue Plavix. --CKD 3A. Stable. We will continue to monitor renal function. --DVT prophylaxis with SCDs. Discharge Plan: Home Plan to discharge in: 48 Hours - Advance Directives Does patient have a Living Will: No Does patient have a Durable POA for Healthcare: No - Code Status/Comfort Care Code Status Assessed: Yes Physician Review: Patient Assessed, Agree with Above Assessment and Plan Critical Care: No
[2022-07-13 17:30] LABS: Protime INR 1.05
[2022-07-13] MEDS ORDERED: HYDROCODONE/APAP 5/325 MG TAB ONE (20:01)
[2022-07-13 20:24] LABS: Magnesium 2.1 mg/dL (1.6-2.4); Thyroid Stimulating Hormone 1.48 uIU/mL (0.358-3.740)
[2022-07-13] MEDS ORDERED: ONDANSETRON 4 MG/2 ML VIAL ONE (20:34)
[2022-07-13] MEDS: ONDANSETRON 4 MG/2 ML VIAL IV PRN (20:36)
[2022-07-13] MEDS ORDERED: clonazePAM 1 MG TAB ONE (21:15)
[2022-07-13] MEDS: clonazePAM 1 MG TAB PO PRN (21:16)
[2022-07-13 22:18] VITALS: BMI 28.8
[2022-07-14] MEDS: HYDROCODONE/APAP 5/325 MG TAB PO PRN ×2 (03:20→09:14)
[2022-07-14 03:28] LABS: Lymphocytes % 19.6 % (15.3-44.8); MCV 87.7 fL (80-100); MPV 7.1 fL (7.6-11.3); RBC Red Blood Cell Count 3.88 M/uL (3.86-4.86)
[2022-07-14 04:22] LABS: Potassium 2.9 mmol/L (3.5-5.1)
[2022-07-14] MEDS ORDERED: NA CHLORIDE 0.9% 500 ML ONE (04:44)
[2022-07-14] MEDS: KCL 20 MEQ/100 mL IVPB 20 MEQ/100 ML BAG IV SCH ×3 (04:44→09:00)
[2022-07-14] MEDS: HYDRALAZINE HCL 20 MG/ML VIAL IV PRN ×2 (05:13→12:33)
--- NOTE | 2022-07-14 08:52 | RAD REPORT ---
EXAM DESCRIPTION: - CP - 07/14/2022 12:31 am CLINICAL HISTORY: syncope COMPARISON: Head C Spine Mpr Wo Con dated 06/24/2022 TECHNIQUE: Real-time sonographic evaluation of both carotid systems was performed. Doppler interroga tion was performed with waveform tracing bilaterally. FINDINGS: Normal high resistance waveforms are noted in both external carotid arteries. The common c arotid arteries and internal carotid arteries show normal low resistance waveforms. Soft plaque is present in both with the carotid bifurcations. Peak systolic and end diastolic velocit y values and the ICA/CCA ratios are in the non-hemodynamically significant range. Antegrade flow seen in both vertebral arteries. IMPRESSION: Mild soft plaque present at both carotid bifurcations. No evidence of a hemodynamically significant stenosis.
[2022-07-14] MEDS ORDERED: LOSARTAN POTASSIUM 50 MG TABLET PO SCH (09:00)
[2022-07-14] MEDS ORDERED: TENOFOV ALAFENAM PO SCH (09:00)
[2022-07-14] MEDS ORDERED: EMTRICITABINE PO SCH (09:00)
[2022-07-14] MEDS ORDERED: SPIRONOLACTONE 25 MG TABLET PO SCH (09:00)
[2022-07-14] MEDS ORDERED: PANTOPRAZOLE 40MG TABLET PO SCH (09:00)
[2022-07-14] MEDS ORDERED: METOPROLOL TAR 50 MG TAB PO SCH (09:00)
[2022-07-14] MEDS ORDERED: CLOPIDOGREL 75 MG TABLET PO SCH (09:00)
[2022-07-14] MEDS ORDERED: RALTEGRAVIR POTASSIUM 400 MG TABLET PO SCH (09:00)
[2022-07-14] MEDS ORDERED: AMLODIPINE 10 MG TAB PO SCH (09:00)
[2022-07-14] MEDS ORDERED: HOME MED 1 EA UNK (Dexlansoprazole [Dexilant] 30 MG Cap.Dr.Bp) PO SCH (09:00)
[2022-07-14] MEDS ORDERED: BUPROPION HCL XL 150 MG TAB PO SCH (09:00)
[2022-07-14] MEDS: ONDANSETRON 4 MG/2 ML VIAL IV PRN (09:11)
[2022-07-14] MEDS: clonazePAM 1 MG TAB PO PRN (09:33)
[2022-07-14 10:49] VITALS: O2SAT 98
[2022-07-14] MEDS ORDERED: POTASSIUM 25 MEQ EFFERV TAB PO ONE (10:53)
[2022-07-14 12:24] VITALS: BP 189/86
[2022-07-14 12:36] LABS: Specific Gravity 1.022 (1.005-1.030); Urine Bacteria None Seen /HPF (<20); Urine Bilirubin NEGATIVE (Negative); Urine Blood Negative (Negative); Urine Clarity Clear (Clear); Urine Color Yellow (Yellow); Urine Glucose NEGATIVE (Negative); Urine Protein TRACE (Negative); Urine RBC <5 /HPF (None Seen); Urine Urobilinogen 1+ (Normal)
[2022-07-14 13:50] VITALS: TEMP 98
--- NOTE | 2022-07-14 15:20 | P.DS ---
Admission Date: 07/13/22 Discharge Date: 07/14/22 Disposition: ROUTINE DISCHARGE Discharge Condition: FAIR Reason for Admission: Syncope - Problems (1) Polypharmacy Status: Acute (2) Syncope Status: Acute (3) HIV positive Onset Date: 10/23/14 Status: Chronic (4) Hypertension Status: Chronic Qualifiers: Hypertension type: primary hypertension Qualified Code(s): I10 - Essential (primary) hypertension Brief History of Present Illness: Patient is a 67-year-old female with a past medical history significant for anxiety disorder, atrial fibrillation, bipolar disorder, HIV, chronic back pain who presented with complaint of syncope. Patient reported that she was in the kitchen today when she is felt slightly dizzy and eventually had a syncopal episode. Patient reported that she hit her head.. Patient reported associated signs and symptoms of weakness in upper\lower extremity weakness and shortness of breath. Patient denies any other signs and symptoms. Imaging done in the ED was unremarkable. Patient noted to be hypertensive. Hospital Course: Patient placed on observation on the medical floor. Her troponin was negative. Orthostatic vitals negative. Subsequent history from revealed that patient has been drowsy most of the time. She is on BuSpar, trazodone at bedtime and Klonopin which could be making her drowsy. reported patient was drowsy before she fell. She is informed she needs to see her psychiatrist to cut down her psychotropic medications. Her systolic blood pressure noted to be high and appears uncontrolled. Patient is on multiple antihypertensives. Case discussed with cardiology Dr. Lund who recommended to switch metoprolol to Coreg and to add hydrochlorothiazide. Echocardiogram done and the result is pending. Previous echocardiogram 1 year ago was unremarkable. Vital Signs/Physical Exam: Temp Pulse Resp BP Pulse Ox 98 F 57 18 189/86 H 95 07/14/22 13:47 07/14/22 12:00 07/14/22 12:00 07/14/22 12:00 07/14/22 13:47 General: Alert, In no apparent distress, Oriented x3 HEENT: Mucous membr. moist/pink Neck: JVD not distended Respiratory: Clear to auscultation bilaterally, Normal air movement Cardiovascular: Regular rate/rhythm, Normal S1 S2 Gastrointestinal: Soft and benign, Non-distended Musculoskeletal: No swelling Integumentary: No cyanosis Neurological: Normal strength at 5/5 x4 extr Laboratory Data at Discharge: WBC 5.20 K/uL (4.3-10.9) 07/14/22 03:08 Hgb 11.2 g/dL (12.0-15.0) L D 07/14/22 03:08 Hct 34.0 % (36.0-45.0) L 07/14/22 03:08 Plt Count 125 K/uL (152-406) L 07/14/22 03:08 PT 11.6 SECONDS (9.5-12.5) 07/13/22 17:14 INR 1.05 07/13/22 17:14 Sodium 140 mmol/L (136-145) 07/14/22 03:08 Potassium 3.8 mmol/L (3.5-5.1) D 07/14/22 12:38 BUN 33 mg/dL (7-18) H 07/14/22 03:08 Creatinine 1.12 mg/dL (0.55-1.02) H 07/14/22 03:08 Glucose 92 mg/dL (74-106) 07/14/22 03:08 Phosphorus 3.0 mg/dL (2.5-4.9) 07/13/22 19:35 Magnesium 2.1 mg/dL (1.6-2.4) 07/13/22 19:35 Total Bilirubin 0.5 mg/dL (0.2-1.0) 07/13/22 16:10 AST 33 U/L (15-37) 07/13/22 16:10 ALT 19 U/L (13-56) 07/13/22 16:10 Alkaline Phosphatase 101 U/L (45-117) 07/13/22 16:10 Lipase 125 U/L (73-393) 07/13/22 16:10 Home Medications: Raltegravir Potassium [Isentress] 1 tab PO BID 02/28/12 Sertraline [Zoloft*] 2 tab PO BID 09/15/12 Emtricitabine/Tenofov Alafenam [Descovy 200-25 mg Tablet] 1 tab PO DAILY 03/05/21 Amlodipine Besylate 1 tab PO DAILY 03/30/21 Dexlansoprazole [Dexilant] 60 mg PO DAILY 03/30/21 Clopidogrel Bisulfate [Plavix*] 1 tab PO DAILY 10/16/21 Trazodone [Desyrel*] 1 tab PO BEDTIME 10/16/21 buPROPion HCL [Wellbutrin Xl] 1 tab PO DAILY 10/16/21 Spironolactone [Aldactone*] 25 mg PO DAILY #30 tab 02/04/22 Hydromorphone [Dilaudid*] 2 mg PO DAILY 03/15/22 Losartan Potassium [Cozaar*] 50 mg PO BID #60 tablet 04/25/22 carvediloL [Coreg] 25 mg PO BID #60 tab 07/14/22 hydroCHLOROthiazide [Hydrochlorothiazide] 25 mg PO DAILY #30 tab 07/14/22 New Medications: carvediloL [Coreg] 25 mg PO BID #60 tab hydroCHLOROthiazide [Hydrochlorothiazide] 25 mg PO DAILY #30 tab Diet: AHA Activity: Ad pricila Followup: NONE,NONE [Primary Care Provider] -
[2022-07-14] MEDS ORDERED: TRAZODONE 50 MG TABLET PO SCH (21:00)
[2022-07-14] MEDS ORDERED: RALTEGRAVIR POTASSIUM 400 MG PO SCH (21:00)
--- NOTE | 2022-07-15 00:11 | CON ---
Date of Consultation: 07/14/2022 Reason For Consultation: Questionable syncope. History Of Present Illness: A 67-year-old female very well known to me. Has history of paroxysmal a trial fibrillation, bipolar disorder, HIV, status post recent coronary angiogram that was normal. Sh elver comes in because she was dizzy and weak and her knees did not hold her anymore and she fell, but sh elver claimed that she did not lose her consciousness. However, this patient has been taking Klonopin an d lorazepam together for anxiety, and the thinks that she might be overdosing. Past Medical History: As outlined above in the HPI. Medications: Refer to the reconciliation sheet for detailed list. Allergies: NO KNOWN DRUG ALLERGIES. Family History: No premature coronary artery disease or cancer. Social History: She does not drink. She is a smoker. Does not use any drugs. Review of Systems: All systems reviewed and they were negative except for what mentioned in HPI. Physical Examination: Vital Signs: Reviewed. Head and Neck: Pupils are equal, reactive to light. Intact eye movements. No JVD. No cervical lym phadenopathy. Neck is supple. Thyroid is not enlarged. Lungs: Clear to auscultation bilaterally. No rhonchi, wheezing, or crackles. No accessory muscle u se. Heart: Regular rate and rhythm. No extra sounds. Abdomen: Soft, nontender. Bowel sounds positive. No organomegaly. No masses or hernia. No rigidi ty or rebound. Extremities: No edema, clubbing, or cyanosis. Intact pulses. Skin: No rash. Neurological: Alert, awake, oriented x3. No acute focal deficits appreciated. Investigations: Troponins negative. BUN 33, creatinine 1.1. Assessment And Recommendation: 1.Fall and no loss of consciousness. She is probably oversedated from medications and the patient d oes not have any coronary artery disease, status post recent coronary angiogram and no rhythm problem s recorded, and no further cardiac workup is needed and she can be released from Cardiology standpoin t to follow up as an outpatient. 2.Atrial fibrillation: Condition is controlled. Continue current management. 3.Diastolic heart failure. She appears to be euvolemic. SR/MODL Voice ID: [id number] Report ID: [id number]
--- NOTE | 2022-07-15 06:31 | ECHO ---
HEIGHT: 5 ft 4 in WEIGHT: 168 lb 0 oz DATE OF STUDY: 07/14/[address]: Max Lugo 2-DIMENSIONAL: YES M.MODE: YES DOPPLER: YES COLOR FLOW: YES TDS: PORTABLE: YES DEFINITY: BUBBLE STUDY: DIAGNOSIS: SYNCOPE CARDIAC HISTORY: CATHERIZATION: YES SURGERY: NO PROSTHETIC VALVE: NO PACEMAKER: NO MEASUREMENTS (cm) DIASTOLIC (NORMALS) SYSTOLIC (NORMALS) IVSd 1.1 (0.6-1.2) LA Diam 3.2 (1.9-4.0) LVEF 61% LVIDd 4.1 (3.5-5.7) LVIDs 2.8 (2.0-3.5) %FS 32% LVPWd 1.3 (0.6-1.2) Ao Diam 3.1 (2.0-3.7) 2 DIMENSIONAL ASSESSMENT: RIGHT ATRIUM: NORMAL LEFT ATRIUM: NORMAL RIGHT VENTRICLE: NORMAL LEFT VENTRICLE: NORMAL TRICUSPID VALVE: MILD TRICUSID REGURGITATION MITRAL VALVE: MILD MITRAL REGURGITATION PULMONIC VALVE: NORMAL AORTIC VALVE: NORMAL PERICARDIAL EFFUSION: NONE AORTIC ROOT: NORMAL LEFT VENTRICULAR WALL MOTION: NORMAL DOPPLER/COLOR FLOW: SEE BELOW COMMENTS: 1. NORMAL LEFT VENTRICULAR EJECTION FRACTION 60-65% 2. NORMAL WALL MOTION 3. MILD MITRAL REGURGITATION 4. MILD TRICUSPID REGURGITATION TECHNOLOGIST: ALANA HICKMAN
--- NOTE | 2022-07-15 16:34 | EKG ---
Test Date: 2022-07-13 Test Time: 14:54:51 [place] Operator: CHELE MEASUREMENT RESULTS: Intervals: Rate: 51 AR: 194 QRSD: 90 QT: 530 QTc: 488 [place]: P: 70 AR: 194 QRS: 4 T: 24 INTERPRETIVE STATEMENTS: Sinus bradycardia Nonspecific T wave abnormality Prolonged QT Abnormal ECG Compared to ECG 06/01/2022 17:28:01 T-wave abnormality now present Junctional rhythm no longer present ST (T wave) deviation no longer present Possible ischemia no longer present Electronically Signed On 07-15-22 16:30:30 [employer] by Mike Lund
== END 2022-07-14 15:16 | disposition home or self-care (01) ==
LOC: ER 14:30 → ERHOLD 17:07 → 4TH 22:11
PROVIDERS: ADMIT Internal Medicine; ATTEND Internal Medicine
DX: T88.7XXA Unspecified adverse effect of drug or medicament, initial encounter (principal); R55 Syncope and collapse; I12.9 Hypertensive chronic kidney disease with stage 1 through stage 4 chronic kidney disease, or unspecified chronic kidney disease; I48.0 Paroxysmal atrial fibrillation; N18.31 Chronic kidney disease, stage 3a; B20 Human immunodeficiency virus [HIV] disease; M54.9 Dorsalgia, unspecified; R53.1 Weakness; F41.9 Anxiety disorder, unspecified; F31.9 Bipolar disorder, unspecified; D69.6 Thrombocytopenia, unspecified; R00.1 Bradycardia, unspecified; K21.9 Gastro-esophageal reflux disease without esophagitis; S09.90XA Unspecified injury of head, initial encounter; W18.30XA Fall on same level, unspecified, initial encounter; Y93.9 Activity, unspecified; Y92.019 Unspecified place in single-family (private) house as the place of occurrence of the external cause; Z88.2 Allergy status to sulfonamides; Z88.1 Allergy status to other antibiotic agents; Z87.891 Personal history of nicotine dependence; Z20.822 Contact with and (suspected) exposure to COVID-19
CPT/HCPCS: 93005; 93306; 85025 ×2; 81001; 80048 ×2; 36415; 83735 ×2; 84100; 84132; 85610; 80076; 84443 ×2; 84484; 84439; 83690; 83880 ×2; 70450; 71250; 72125; 71045; 93880; 99284; 87811; J0360 ×2; J3480 ×2; J7040; J2405 ×2; G0378

== ENCOUNTER 2022-07-20 07:44 | Day surgery (SDC) | payer OTHER ==
[2022-07-20] MEDS ORDERED: Ringers Lactate 1,000 ML IV ONE (08:15)
[2022-07-20] MEDS ORDERED: propofoL 200 MG/20 ML VIAL IV ONE ×2 (09:16→09:32)
[2022-07-20 12:27] VITALS: TEMP 97
[2022-07-20 12:28] VITALS: BP 161/74; O2SAT 100
== END 2022-07-20 10:45 | disposition home or self-care (01) ==
LOC: OR 07:44
PROVIDERS: ATTEND Internal Medicine Gastroenterology
PROC: 0DBE8ZX Excision of Large Intestine, Via Natural or Artificial Opening Endoscopic, Diagnostic (ICD-10-PCS; principal; 2022-07-20 08:30)
DX: K62.89 Other specified diseases of anus and rectum (principal); K59.1 Functional diarrhea; Z71.1 Person with feared health complaint in whom no diagnosis is made; Z91.199 Patient's noncompliance with other medical treatment and regimen due to unspecified reason
CPT/HCPCS: 45380; 88305; J2704; J7120

== ENCOUNTER 2022-07-21 12:02 | Emergency (ER) | payer OTHER ==
[2011-12-26 14:45] VITALS: BP 143/96
--- OUTSIDE RECORDS SUMMARY | 2022-07-21 12:40 | XMS REPORT | Continuity of Care Document ---
:1955 Author Organization [facility] t Address [address] [place] [address] Care Team Providers Name Role Phone Urmila [...] Attending Clinician Unavailable Robbi Bal Attending Clinician [facility] Attending Clinician Unavailable Isaias Whiteside RN Attending Clinician Unavailable TOMY MARIE Attending Clinician Unavailable Reilly Means MD Attending Clinician Ofe Shields MD Attending Clinician Tomy Marie MD Attending Clinician Doctor Unassigned, Donaldson Attending Clinician Unavailable Bill COLES Attending Clinician Unavailable Bill Rose Attending Clinician CHARITY MCALLISTER Attending Clinician Unavailable Charity Mcallister MD Attending Clinician GADIEL KOEHLER Attending Clinician Unavailable Mike Lund Attending Clinician Unavailable NIKOLAI REEVES Attending Clinician Unavailable Eliseo Arce MD Attending Clinician Carol Ann IZQUIERDO, Sarai Lieberman Attending Clinician [phone] Ashly Pelletier MA Attending Clinician Unavailable [...] RAMIREZ, Michael Corbin Attending Clinician Unavailable Team, [facility] Attending Clinician UnavailDO PORSHA Newell Attending Clinician Unavailable Gadiel Koehler MD Attending Clinician Tyrone JENKINS, Eveline Sierra Attending Clinician Eladio Colorado RN Attending Clinician Unavailable Geraldine SALGUERO, Leyda Attending Clinician [phone] Selvin RAMIREZ, Stefanie Attending Clinician Unavailable [...] Number Effective Date Expiration Date S gabino [facility] COMMUNITY PL[facility] [id number] 2012 STAR PLUS OON 00:00:00 [facility] [id number] 2019 DUAL COMPLETE HMO 00:00:00 [facility] [id number] 2019 PLUS 00:00:00 [facility] [id number] 2019 [facility] [place] [facility] 00:00:00 [employer] MEDICARE ADV [id number] 2019 2019 00:00:00 00:00:00 Problems Condition Condition Condition Status Onset Resolution Last Treating Co mments Source Name Details Category Date Date Treatment Clinician Date Dyspnea, Dyspnea, Disease Active Unive rs unspecifie unspecifie 02-11 it y of d type d type 00:00: [place] [address] Medical Branch Gastropare Gastropare Disease Active Overview : Methodi sis sis 4-[address] 00:[facility] note l might be different from the original. Added automatic ally from request for surgery [id number] Dysphagia Dysphagia Disease Active Overview: Methodi 4-[address] 00:00: [facility] 00 note l might be different from the original. Added automatic ally from request for surgery [id number] CCL / EPS CCL / EPS Diagnosis Active 2020-10-15 Get PVI PVI 3-30 17:07:00 l ABLATION ABLATION 00:00: Patel n W/ CARTO / W/ CARTO / 00 GA / T GA / T Active 08/19/2020 [facility] Food Food Disease Active 2019-05 [...] 2014-05 Univers 0-03 ity of 00:00: [place] [facility] Hypovolemi Hypovolemi Disease Active [...] 1-25 Clear 00:00: Garcia 00 [facility] trimetho DA Active [facility] prim 1-25 Clear 00:00: Garcia [facility] codeine DA Active SV N/V [facility] 1-25 Clear 00:00: Garcia [facility] Metoclop Propensi Active [place] ramide [...] 2017- Univers INGREDI 2-08 ity of 00:00: [place] [facility] TRIMETHO DRUG Active Hives [...] Date Stop Date Source Natural father Diabetes [facility] Natural father Other - see comments [facility] Natural father Coronary Heart [facility] [place] Disease [facility] Social History Social Habit Start Date Stop Date Quantity Comments Source History SDOH [facility] Frequency Hospita l History SDOH [facility] Std Drinks Hospit al History SDKS [facility] Exposure to 2022-04-30 2022-05-10 Yes University of SARS-CoV-2 (event) 00:00:00 10:25:00 [facility] Tobacco use and 2022-02-11 2022-02-11 Former smokeless Uni versity of exposure 00:00:00 00:00:00 tobacco user [facility] Tobacco Comment 2022-02-11 2022-02-11 Smokes approx 1-2 Un iversity of 00:00:00 00:00:00 cigarettes per [facility] day when she Branch smokes Alcohol intake 2020-12-08 2020-12-08 Current drinker [facility] 00:00:00 00:00:00 of [facility] (finding) Cigarettes smoked 2020-09-05 2020-09-[address] current (pack per 00:00[facility]00 [facility] - Reported Cigarette 2020-09-05 2020-09-05 [facility] pack-years 00:00:00 00:00:00 Hospital Alcohol Comment 2016-09-23 2016-09-23 rare [facility] 00:00:00 00:[facility]:00 Hospital History of tobacco 2011-09-29 User of smokeless University of use 00:00:00 tobacco [facility] Sex [facility]igned At [birth year] [facility] 00:00:00 00:00:00 Smoking Status Start Date Stop Date Source Ex-smoker 2022-02-11 00:00:00 2022-02-11 00:00:00 Universi ty of [facility] Medications Ordered Filled Start Stop Current Ordering Indication Dosage Frequency Signature Comments Components Source Medication Medication Date Date Medication? Clinician (SIG) Name Name potassium 2021-05- No 10meq 10 mEq, IV Univers chloride in 07-11 Piggyback, i ty of water 10 20:00: 22:00 ONCE, 1 [place] mEq/100 mL 00 :00 dose, On Medic al RTU 10 mEq [facility] 05/10/22 at 1400, Administer over 60 Minutes, 100 mL magnesium 2021-05 No 800mg 800 mg, Uni vers oxide 07-11 Oral, ity of (MAG-OX 20:00: 19:37 ONCE, 1 [place] 400) tablet 00 :00 dose, On Medi porfirio 800 mg [facility] 05/10/22 at 1400, Routine KCL 2021-05- No 40meq 40 mEq, Univers (KLOR-CON 07-11 Oral, ity of M20) tablet 19:15: 19:37 ONCE, 1 [place] 40 mEq 00 :00 dose, On Medical [facility] 05/10/22 at 1315, JOE hydralAZINE 2021-05- No 10mg 10 mg, Uni vers (APRESOLINE 07-11 Slow IV ity of ) injection 18:45: 18:42 [place] 10 mg 00 :00 ONCE, 1 Medical dose, [facility] 05/[facility]22 at 1245, JOE NaCl 0.9% 2021-05- No 1000mL at 999 Uni vers (NS) bolus 07-11 mL/hr, ity of infusion 17:45: 20:00 1,000 mL, [place] 1,000 mL 00 :00 IV Medical Infusion, Branch ONCE, 1 dose, On [facility] 05/10/22 at 1145, JOE cefpodoxime 2021-05- Yes [id number] 100mg Take 1 Univers 100 mg 2-17 12-25 tablet by ity of tablet 00:00: 05:59 mouth in [place] 00 :00 the [facility] Branch and 1 tablet in the evening. Do all this for 7 days. cefpodoxime 2021-05- Yes [id number] 100mg Take 1 Univers 100 mg 2-17 12-25 tablet by ity of tablet 00:00: 05:59 mouth in [place] 00 :00 the [facility] morning Branch and 1 tablet in the evening. Do all this for 7 days. cefpodoxime 2021-05- Yes [id number] 100mg Take 1 Univers 100 mg 2-17 12-25 tablet by ity of tablet 00:00: 05:59 mouth in [place] 00 :00 the Medical morning Branch [...] 1 Branch dose, On [facility] 05/06/22 at 1800, JOE ketorolac 2021-05 No 15mg 15 mg, Unive rs (TORADOL) 2-15 12-15 Slow IV ity of injection 22:00: 22:19 Push, [place] 15 mg 00 :00 ONCE, 1 Medical dose, On Branch [facility] 05/06/22 at 1600, JOE NaCl 0.9% 2021-05- No 1000mL at 999 Uni vers (NS) bolus 2-15 12-15 mL/hr, ity of infusion 22:00: 23:41 1,000 mL, [place] 1,000 mL 00 :00 IV Medical Infusion, Branch ONCE, 1 dose, On [facility] 05/06/22 at 1600, JOE ondansetron 2021-05- No 8mg 8 mg, Slow Univers (ZOFRAN 2-15 12-15 IV Push, ity of (PF)) 21:15: 22:19 ONCE, 1 [place] injection 8 00 :00 dose, On Medi porfirio mg [place] 05/06/22 at 1515, JOE ondansetron 2021-05 Yes [id number] 1-2 U nivers 4 mg tablet 2-15 tablets ity o f 00:00: every 8 [place] 00 hours as Medical needed for Branch nausea benzonatate 2021-05 Yes [id number] 200mg Take 1 Univers 200 mg 2-15 capsule by ity of capsule 00:00: mouth 3 [place] 00 (three) Medical times Branch daily as needed for Cough. albuterol 2021-05 Yes [id number] 2{puff} Inhale 2 Univers 90 2-15 Puffs ity of mcg/actuati 00:00: every 4 [place] on inhaler 00 (four) Medical hours as Branch needed for Wheezing or Shortness of Breath. butalbital- 2021-05 Yes [id number] 1{tbl} Take 1 Univers acetaminoph 2-15 tablet by ity of en-caff 00:00: mouth [place] 50-325-40 00 every 4 Medical mg tablet (four) Branch hours as needed (headache) . ondansetron 2021-05 Yes [id number] 1-2 U nivers 4 mg tablet 2-15 tablets ity o f 00:00: every 8 [place] 00 hours as Medical needed for Branch nausea benzonatate 2021-05 Yes [id number] 200mg Take 1 Univers 200 mg 2-15 capsule by ity of capsule 00:00: mouth 3 [place] 00 (three) Medical times Branch daily as needed for Cough. albuterol 2021-05 Yes [id number] 2{puff} Inhale 2 Univers 90 2-15 Puffs ity of mcg/actuati 00:00: every 4 [place] on inhaler 00 (four) Medical hours as Branch needed for Wheezing or Shortness of Breath. butalbital- 2021-05 Yes [id number] 1{tbl} Take 1 Univers acetaminoph 2-15 tablet by ity of en-caff 00:00: mouth [place] 50-325-40 00 every 4 Medical mg tablet (four) Branch hours as needed (headache) . ondansetron 2021-05 Yes [id number] 1-2 U nivers 4 mg tablet 2-15 tablets ity o f 00:00: every 8 [place] 00 hours as Medical needed for Branch nausea benzonatate 2021-05 Yes [id number] 200mg Take 1 Univers 200 mg 2-15 capsule by ity of capsule 00:00: mouth 3 [place] 00 (three) Medical times Branch daily as needed for Cough. albuterol 2021-05 Yes [id number] 2{puff} Inhale 2 Univers 90 2-15 Puffs ity of mcg/actuati 00:00: every 4 [place] on inhaler 00 (four) Medical hours as Branch needed for Wheezing or Shortness of Breath. butalbital- 2021-05 Yes [id number] 1{tbl} Take 1 Univers acetaminoph 2-15 tablet by ity of en-caff 00:00: mouth [place] 50-325-40 00 every 4 Medical mg tablet (four) Branch hours as needed (headache) . ondansetron 2021-05 Yes [id number] 1-2 U nivers 4 mg tablet 2-15 tablets ity o f 00:00: every 8 [place] 00 hours as Medical needed for Branch nausea benzonatate 2021-05 Yes [id number] 200mg Take 1 Univers 200 mg 2-15 capsule by ity of capsule 00:00: mouth 3 [place] 00 (three) Medical times Branch daily as needed for Cough. albuterol 2021-05 Yes [id number] 2{puff} Inhale 2 Univers 90 2-15 Puffs ity of mcg/actuati 00:00: every 4 [place] on inhaler 00 (four) Medical hours as Branch needed for Wheezing or Shortness of Breath. butalbital- 2021-05 Yes [id number] 1{tbl} Take 1 Univers acetaminoph 2-15 tablet by ity of en-caff 00:00: mouth [place] 50-325-40 00 every 4 Medical mg tablet (four) Branch hours as needed (headache) . ondansetron 2021-05 Yes [id number] 1-2 U nivers 4 mg tablet 2-15 tablets ity o f 00:00: every 8 [place] 00 hours as Medical needed for Branch nausea benzonatate 2021-05 Yes [id number] 200mg Take 1 Univers 200 mg 2-15 capsule by ity of capsule 00:00: mouth 3 [place] 00 (three) Medical times Branch daily as needed for Cough. albuterol 2021-05 Yes [id number] 2{puff} Inhale 2 Univers 90 2-15 Puffs ity of mcg/actuati 00:00: every 4 [place] on inhaler 00 (four) Medical hours as Branch needed for Wheezing or Shortness of Breath. butalbital- 2021-05 Yes [id number] 1{tbl} Take 1 Univers acetaminoph 2-15 tablet by ity of en-caff 00:00: mouth [place] 50-325-40 00 every 4 Medical mg tablet (four) Branch hours as needed (headache) . ondansetron 2021-05 Yes [id number] 1-2 U nivers 4 mg tablet 2-15 tablets ity o f 00:00: every 8 [place] 00 hours as Medical needed for Branch nausea benzonatate 2021-05 Yes [id number] 200mg Take 1 Univers 200 mg 2-15 capsule by ity of capsule 00:00: mouth 3 [place] 00 (three) Medical times Branch daily as needed for Cough. albuterol 2021-05 Yes [id number] 2{puff} Inhale 2 Univers 90 2-15 Puffs ity of mcg/actuati 00:00: every 4 [place] on inhaler 00 (four) Medical hours as Branch needed for Wheezing or Shortness of Breath. butalbital- 2021-05 Yes [id number] 1{tbl} Take 1 Univers acetaminoph 2-15 tablet by ity of en-caff 00:00: mouth [place] 50-325-40 00 every 4 Medical mg tablet (four) Branch hours as needed (headache) . nirmatrelvi 2021-05- Yes [id number] 2{tbl} Take 2 Univers r-ritonavir 2-15 12-21 tablets by i ty of (PAXLOVID, 00:00: 05:59 mouth in [place] EUA,) 300 00 :00 the Medical mg (150 mg morning Branch x 2)-100 mg and 2 tablet tablets in the evening. Do all this for 5 days. nirmatrelvi 2021-05- Yes [id number] 2{tbl} Take 2 Univers r-ritonavir 2-15 12-21 tablets by i ty of (PAXLOVID, 00:00: 05:59 mouth in [place] EUA,) 300 00 :00 the Medical mg (150 mg morning Branch x 2)-100 mg and 2 tablet tablets in the evening. Do all this for 5 days. nirmatrelvi 2021-05- Yes [id number] 2{tbl} Take 2 Univers r-ritonavir 2-15 12-21 tablets by i ty of (PAXLOVID, 00:00: 05:59 mouth in [place] EUA,) 300 00 :00 the Medical mg (150 mg morning Branch x 2)-100 mg and 2 tablet tablets in the evening. Do all this for 5 days. nirmatrelvi 2021-05- Yes [id number] 2{tbl} Take 2 Univers r-ritonavir 2-15 - [...] 04/22/22 at 1645, Routine amoxicillin 2021-05 Yes [id number] 1{tbl} Take 1 Univers -clavulanat 2- [id number] tablet by i ty of e 875-125 00:00: mouth [place] mg per 00 every 12 Medical tablet (twelve) Branch hours. ondansetron 2021-05 Yes [id number] 4mg Take 1 Univers 4 mg 2- 831003 tablet by ity of disintegrat 00:00: mouth [place] ing tablet 00 every 8 Medica l (eight) Branch hours as needed for Nausea and Vomiting (N/V). amoxicillin 2021-05 Yes [id number] 1{tbl} Take 1 Univers -clavulanat 2- [id number] tablet by i ty of e 875-125 00:00: mouth [place] mg per 00 every 12 Medical tablet (twelve) Branch hours. ondansetron 2021-05 Yes [id number] 4mg Take 1 Univers 4 mg 2-01 [id number] tablet by ity of disintegrat 00:00: mouth [place] ing tablet 00 every 8 Medica l (eight) Branch hours as needed for Nausea and Vomiting (N/V). amoxicillin 2021-05 Yes [id number] 1{tbl} Take 1 Univers -clavulanat 2-01 [id number] tablet by i ty of e 875-125 00:00: mouth [place] mg per 00 every 12 Medical tablet (twelve) Branch hours. ondansetron 2021-05 Yes [id number] 4mg Take 1 Univers 4 mg 2-01 [id number] tablet by ity of disintegrat 00:00: mouth [place] ing tablet 00 every 8 Medica l (eight) Branch hours as needed for Nausea and Vomiting (N/V). amoxicillin 2021-05 Yes [id number] 1{tbl} Take 1 Univers -clavulanat 2-01 [id number] tablet by i ty of e 875-125 00:00: mouth [place] mg per 00 every 12 Medical tablet (twelve) Branch hours. ondansetron 2021-05 Yes [id number] 4mg Take 1 Univers 4 mg 2-01 [id number] tablet by ity of disintegrat 00:00: mouth [place] ing tablet 00 every 8 Medica l (eight) Branch hours as needed for Nausea and Vomiting (N/V). amoxicillin 2021-05 Yes [id number] 1{tbl} Take 1 Univers -clavulanat 2-01 [id number] tablet by i ty of e 875-125 00:00: mouth [place] mg per 00 every 12 Medical tablet (twelve) Branch hours. ondansetron 2021-05 Yes [id number] 4mg Take 1 Univers 4 mg 2- [id number] tablet by ity of disintegrat 00:00: mouth [place] ing tablet 00 every 8 Medica l (eight) Branch hours as needed for Nausea and Vomiting (N/V). amoxicillin 2021-05 Yes [id number] 1{tbl} Take 1 Univers -clavulanat 2-01 [id number] tablet by i ty of e 875-125 00:00: mouth [place] mg per 00 every 12 Medical tablet (twelve) Branch hours. ondansetron 2021-05 Yes [id number] 4mg Take 1 Univers 4 mg 2-01 [id number] tablet by ity of disintegrat 00:00: mouth [place] ing tablet 00 every 8 Medica l (eight) Branch hours as needed for Nausea and Vomiting (N/V). amoxicillin 2021-05 Yes [id number] 1{tbl} Take 1 Univers -clavulanat 2-01 [id number] tablet by i ty of e 875-125 00:00: mouth [place] mg per 00 every 12 Medical tablet (twelve) Branch hours. ondansetron 2021-05 Yes [id number] 4mg Take 1 Univers 4 mg 2-01 [id number] tablet by ity of disintegrat 00:00: mouth [place] ing tablet 00 every 8 Medica l (eight) Branch hours as needed for Nausea and Vomiting (N/V). amoxicillin 2021-05 Yes [id number] 1{tbl} Take 1 Univers -clavulanat 06-23 [id number] tablet by i ty of e 875-125 00:00: mouth [place] mg per 00 every 12 Medical tablet (twelve) Branch hours. ondansetron 2021-05 Yes [id number] 4mg Take 1 Univers 4 mg 06-23 [id number] tablet by ity of disintegrat 00:00: mouth [place] ing tablet 00 every 8 Medica l (eight) Branch hours as needed for Nausea and Vomiting (N/V). zoster 2021-05- No [id number] .5mL 0.5 mL by Univers vaccine, 0-14 10-15 9104 Intramuscu ity of recombinant 00:00: 04:59 lar route [place] (SHINGRIX, 00 :00 once now Medic al PF,) for 1 Branch injection dose. And repeat in 2-6 months zoster 2021-05- No [id number] .5mL 0.5 mL by Univers vaccine, 0-14 10-15 9104 Intramuscu ity of recombinant 00:00: 04:59 lar route [place] (SHINGRIX, 00 :00 once now Medic al PF,) for 1 Branch injection dose. And repeat in 2-6 months zoster 2021-05- No [id number] .5mL 0.5 mL by Univers vaccine, 0-14 [...] o f 1 mg tablet 19:28: at [place] [address] bedtime. Medical Branch traZODone 2021-0 Yes 50mg Take 50 mg Un matt 100 mg 9-27 by mouth ity of tablet 19:28: at [place] [address] bedtime. Medical Branch hydralAZINE 2021-0 Yes 25mg [...] 100 mg 04 (two) Medical tablet times [place] daily. amLODIPine 2021-0 Yes 10mg Take 10 mg U nivers (NORVASC) 9-27 by mouth ity of 10 mg 19:28: daily. [place] tablet 04 Medical Branch clonazePAM 2021-0 Yes 1mg Take 1 mg Un matt (KLONOPIN) 9-27 by mouth ity o f 1 mg tablet 19:28: at [place] [address] bedtime. Medical Branch traZODone 2021-0 Yes 50mg Take 50 mg Un matt 100 mg 9-27 by mouth ity of tablet 19:28: at [place] [address] bedtime. Medical Branch hydralAZINE 2021-0 Yes 25mg [...] o f 1 mg tablet 19:28: at [place] [address] bedtime. Medical Branch traZODone 2021-0 Yes 50mg Take 50 mg Un matt 100 mg 9-27 by mouth ity of tablet 19:28: at [place] [address] bedtime. Medical Branch hydralAZINE 2021-0 Yes 25mg [...] o f 1 mg tablet 19:28: at [place] [address] bedtime. Medical Branch traZODone 2021-0 Yes 50mg Take 50 mg Un matt 100 mg 9-27 by mouth ity of tablet 19:28: at [place] [address] bedtime. Medical Branch hydralAZINE 2021-0 Yes 25mg [...] o f 1 mg tablet 19:28: at [place] [address] bedtime. Medical Branch traZODone 2021-0 Yes 50mg Take 50 mg Un matt 100 mg 9- by mouth ity of tablet 19:28: at [place] [address] bedtime. Medical Branch hydralAZINE 2021-0 Yes 25mg [...] o f 1 mg tablet 19:28: at [place] [address] bedtime. Medical Branch traZODone 2022-0 Yes 50mg Take 50 mg Un matt 100 mg 9-27 by mouth ity of tablet 19:28: at [place] [address] bedtime. Medical Branch hydralAZINE 2-0 Yes 25mg [...] o f 1 mg tablet 19:28: at [place] [address] bedtime. Medical Branch traZODone 2-0 Yes 50mg Take 50 mg Un matt 100 mg 9-27 by mouth ity of tablet 19:28: at [place] [address] bedtime. Medical Branch hydralAZINE 2021-0 Yes 25mg [...] o f 1 mg tablet 19:28: at [place] [address] bedtime. Medical Branch traZODone 2022-0 Yes 50mg Take 50 mg Un matt 100 mg 9-27 by mouth ity of tablet 19:28: at [place] [address] bedtime. Medical Branch hydralAZINE 2-0 Yes 25mg [...] o f 1 mg tablet 19:28: at [place] [address] bedtime. Medical Branch traZODone 2-0 Yes 50mg Take 50 mg Un matt 100 mg 9-27 by mouth ity of tablet 19:28: at [place] [address] bedtime. Medical Branch hydralAZINE 2-0 Yes 25mg [...] o f 1 mg tablet 19:28: at [place] [address] bedtime. Medical Branch traZODone 2021-0 Yes 50mg Take 50 mg Un matt 100 mg 9-27 by mouth ity of tablet 19:28: at [place] [address] bedtime. Medical Branch hydralAZINE 2021-0 Yes 25mg [...] o f 1 mg tablet 19:28: at [place] [address] bedtime. Medical Branch traZODone 2021-0 Yes 50mg Take 50 mg Un matt 100 mg 9-27 by mouth ity of tablet 19:28: at [place] [address] bedtime. Medical Branch hydralAZINE 2021-0 Yes 25mg [...] o f 1 mg tablet 19:28: at [place] [address] bedtime. Medical Branch traZODone 2-0 Yes 50mg Take 50 mg Un matt 100 mg 9-27 by mouth ity of tablet 19:28: at [place] [address] bedtime. Medical Branch hydralAZINE 2-0 Yes 25mg [...] o f 1 mg tablet 19:28: at [place] [address] bedtime. Medical Branch traZODone 2021-0 Yes 50mg Take 50 mg Un matt 100 mg 9-27 by mouth ity of tablet 19:28: at [place] [address] bedtime. Medical Branch hydralAZINE 2021-0 Yes 25mg [...] o f 1 mg tablet 19:28: at [place] [address] bedtime. Medical Branch traZODone 2021-0 Yes 50mg Take 50 mg Un matt 100 mg 9-27 by mouth ity of tablet 19:28: at [place] [address] bedtime. Medical Branch hydralAZINE 2021-0 Yes 25mg [...] mouth ity of 10 mg 19:28: daily. [place] tablet 04 Medical Branch clonazePAM 2021-0 Yes 1mg Take 1 mg Un matt (KLONOPIN) 9-27 by mouth ity o f 1 mg tablet 19:28: at [place] [address] bedtime. Medical Branch traZODone 2021-0 Yes 50mg Take 50 mg Un matt 100 mg 9-27 by mouth ity of tablet 19:28: at [place] [address] bedtime. Medical Branch hydralAZINE 2021-0 Yes 25mg [...] o f 1 mg tablet 19:28: at [place] [address] bedtime. Medical Branch traZODone Yes 50mg Take 50 mg Un matt 100 mg 02-16 by mouth ity of tablet 19:28: at [place] [address] bedtime. Medical Branch cefpodoxime 2021- No [id number] 200mg Take 1 Univers 200 mg 02-16 tablet by ity of tablet 00:00: 04:59 mouth in [place] 00 :00 the Medical morning Branch and 1 tablet in the evening. Do all this for 3 days. cefpodoxime 2021- No [id number] 200mg Take 1 Univers 200 mg 02-16 tablet by ity of tablet 00:00: 04:59 mouth in [place] 00 :00 the Medical morning Branch and 1 tablet in the evening. Do all this for 3 days. haloperidol 2021- No 2mg 2 mg, Slow Univers lactate 02-15 IV Push, ity of (HALDOL) 09:00: 09:12 ONCE, 1 [place] injection 2 00 :00 dose, On Medi porfirio mg Mon Branch 02/15/22 at 0400, Routine hydroCHLORO Yes 25mg 25 mg, Univ ers thiazide 9-25 Oral, ity of (ESIDRIX) 14:00: DAILY, [place] capsule 25 00 First dose Med ical mg on [place] Branch 02/14/22 at 0900, Until Discontinu ed, Routine butalbital- Yes 1{tbl} 1 tablet, Univers acetaminoph - Oral, ity of en-caff 18:46: Q6HPRN, [place] (ESGIC) 06 Starting Medical 50-325-40 on [...] of 2,000 mg in 17:00: 18:24 Piggyback, [place] NaCl 0.9% 00 :00 Q24H ABX, [...] on [place] cream 00 [facility] Medical 02/11/22 at Branch 1400, Until Discontinu ed, Routine busPIRone 202-0 Yes 30mg 30 mg, Univer s (BUSPAR) 02-11 Oral, BID, ity o f tablet 30 18:00: First dose [place] mg 00 on [facility] Medical 02/11/22 at Branch 1300, Until Discontinu ed, Routine raltegravir 2021-0 Yes 400mg 400 mg, Un matt (ISENTRESS) 02-11 Oral, BID, it y of tablet 400 18:00: First dose [place] mg 00 on [facility] Medical 02/11/22 at Branch 1300, Until Discontinu ed, JOE metoprolol 2021-0 Yes 100mg 100 mg, Uni vers tartrate 02-11 Oral, BID, ity o f (LOPRESSOR) 18:00: First dose [place] tablet 100 00 on [facility] mg 02/11/22 at Branch 1300, Until Discontinu ed, Routine lisinopriL 2021-0 Yes 40mg 40 mg, Unive rs (PRINIVIL,Z 02-11 Oral, BID, it y of ESTRIL) 18:00: First [place] tablet 40 00 on [facility] mg 02/11/22 at Branch 1300, Until Discontinu ed, Routine emtricitabi 2021-0 Yes 1{tbl} 1 tablet, [facility] 02-[facility] Oral, ity of r alafen 18:00: DAILY, [place] (DESCOVY) 00 First dose Medi porfirio tablet 1 on [facility] tablet 02/11/22 at 1300, Until Discontinu ed, Routine ipratropium 2021-0 Yes .5mg 0.5 mg, Uni vers (ATROVENT) 02-11 Inhalation ity of 0.02 % 17:57: , MERY, [place] nebulizer 10 Starting Medica l solution on [facility] Branch 0.5 mg 02/11/22 at 1257, Until [...] last modificati on) on [facility] 02/11/22 at 1230, Until Discontinu ed, Routine HYDROcodone 2021- No 1{tbl} 1 tablet, Univers -acetaminop 02-11 Oral, ity of hen (NORCO 14:11: 17:37 Q6HPRN, [place] 5) 5-325 mg 03 :24 Starting Medi porfirio tablet 1 on [facility] Branch tablet 02/11/22 at 0911, Until Tue02/12/22 at 1237, Routine, Pain (scale 7-10) melatonin Yes 3mg 3 mg, Univers (MELATIN) 02-11 Oral, ity of tablet 3 mg 14:08: QHSPRN, [place] 17 Starting Medical on [facility] Branch 02/11/22 at 0908, Until Discontinu ed, Routine, Insomnia acetaminoph 2021- No 1{tbl} 1 tablet, Univers en-codeine 02-11 Oral, ity of (TYLENOL 14:06: 17:37 Q6HPN, [place] #3) 300-30 19 :24 Starting Medic al mg tablet 1 on [facility] tablet 02/11/22 at 0906, Until Tue02/12/22 at 1237, Routine, Pain (scale 4-6) sennosides- Yes 1{tbl} 1 tablet, Univers docusate 02-11 Oral, ity of sodium 14:06: QDAILYPRN, [place] (SENOKOT-S) 09 Starting Medi porfirio 8.6-50 mg on [facility] per tablet 02/11/22 at 1 tablet 0906, Until Discontinu ed, Routine, Constipati on ondansetron Yes 4mg 4 mg, Slow Univers (ZOFRAN 02-11 IV Push, ity of (PF)) 14:05: Q6HPRN, [place] injection 4 59 Starting Medi porfirio mg on [place] [facility] 02/11/22 at 0905, Until Discontinu ed, Routine, Nausea and Vomiting (N/V) acetaminoph Yes 650mg 650 mg, Un matt en 02-11 Oral, ity of (TYLENOL) 14:04: Q6HPRN, [place] tablet 650 37 Starting Medic al [...] ity of ) 25 mg 09:10: daily. [place] tablet 54 [facility] amLODIPine 0 Yes 10mg Take 10 mg U nivers (NORVASC) 02-11 by mouth ity of 10 mg 09:10: daily. [place] tablet 54 [facility] piperacilli 2021- No 3.375g 3.375 [...] of therapy: 72 hours iopamidol 2- No [id number] 60mL 60 mL, Univers (ISOVUE 02-11 Intravenou [...] On Medi porfirio mg [facility] 02/11/22 at 0045, JOE acetaminoph 2021- No 975mg 975 mg, U nivers en 02-11 Oral, ity of (TYLENOL) 05:15: 04:19 ONCE, 1 [place] 975 00 :00 dose, On Medic al mg [facility] 02/11/22 at 0015, JOE emtricitabi 0 Yes [id number] Take one Univers ne-tenofovi 9-12 po daily ity of r alafen 00:00: [place] (DESCOVY) 00 Medical tablet Branch emtricitabi 0 Yes [id number] Take one [facility] ne-tenofovi 9-12 po daily ity of r alafen 00:00: [place] (DESCOVY) Medical tablet Branch emtricitabi 0 Yes [id number] Take one Univers ne-tenofovi 9-12 po daily ity of r alafen 00:00: [place] (DESCOVY) 00 Medical tablet Branch emtricitabi 0 Yes [id number] Take one Univers ne-tenofovi 9-12 po daily ity of r alafen 00:00: [place] (DESCOVY) 00 Medical tablet Branch emtricitabi Yes [id number] Take one [facility] ne-tenofovi 9-12 po daily ity of r alafen 00:00: [place] (DESCOVY) 00 Medical tablet Branch emtricita Yes [id number] Take one Univers ne-tenofovi 9-12 po daily ity of r alafen 00:00: [place] (DESCOVY) 00 Medical tablet Branch emtricita Yes [id number] Take one Univers ne-tenofovi 9-12 po daily ity of r alafen 00:00: [place] (DESCOVY) 00 Medical tablet Branch emtricita Yes [id number] Take one Univers ne-tenofovi 9-12 po daily ity of r alafen 00:00: [place] (DESCOVY) 00 Medical tablet Branch emtricita Yes [id number] Take one Univers ne-tenofovi 9-12 po daily ity of r alafen 00:00: [place] (DESCOVY) 00 Medical tablet Branch [facility] Yes [id number] Take one Univers ne-tenofovi 9-12 po daily ity of r alafen 00:00: [place] (DESCOVY) 00 Medical tablet [facility] [id number] Take one Univers ne-tenofovi 9-12 po daily ity of r alafen 00:00: [place] (DESCOVY) 00 Medical tablet Branch emtricita Yes [id number] Take one Univers ne-tenofovi 9-12 po daily ity of r alafen 00:00: [place] (DESCOVY) 00 Medical tablet Branch emtricita Yes [id number] Take one Univers ne-tenofovi 9-12 po daily ity of r alafen 00:00: [place] (DESCOVY) 00 Medical tablet Branch emtricita Yes [id number] Take one Univers ne-tenofovi 9-12 po daily ity of r alafen 00:00: [place] (DESCOVY) 00 Medical tablet Branch emtricita Yes [id number] Take one Univers ne-tenofovi 9-12 po daily ity of r alafen 00:00: [place] (DESCOVY) 00 Medical tablet Branch emtricitabi 2021-0 Yes [id number] Take one Univers ne-tenofovi 9-12 po daily ity of r alafen 00:00: [place] (DESCOVY) Medical tablet Branch emtricitabi 2021-0 Yes [id number] Take one Univers ne-tenofovi 9-12 po daily ity of r alafen 00:00: [place] (DESCOVY) Medical tablet Branch naproxen 2021-0 Yes [id number] 500mg Take 1 U nivers (NAPROSYN) 7-24 tablet by ity of 500 mg 00:00: mouth in [place] tablet 00 the Medical morning Branch and 1 tablet in the evening. Take with meals. methocarbam 2021-0 Yes [id number] 500mg Take 1 Univers oL 500 mg 7-24 tablet by ity o f tablet 00:00: mouth 4 [place] [address] ([facility]) [facility] times [place] daily. naproxen 2021-0 Yes [id number] 500mg Take 1 U nivers (NAPROSYN) 7-24 tablet by ity of 500 mg 00:00: mouth in [place] tablet 00 the Medical morning Branch and 1 tablet in the evening. Take with meals. methocarbam 2021-0 Yes [id number] 500mg Take 1 Univers oL 500 mg 7-24 tablet by ity o f tablet 00:00: mouth 4 [place] ([facility]) [facility] times [place] daily. naproxen 2021-0 Yes [id number] 500mg Take 1 U nivers (NAPROSYN) 7-24 tablet by ity of 500 mg 00:00: mouth in [place] tablet 00 the Medical morning Branch and 1 tablet in the evening. Take with meals. methocarbam 2021-0 Yes [id number] 500mg Take 1 Univers oL 500 mg 7-24 tablet by ity o f tablet 00:00: mouth 4 [place] ([facility]) [facility] times [place] daily. naproxen 2021-0 2022- No [id number] 500mg Take 1 Univers (NAPROSYN) 7-24 10-14 tablet by ity of 500 mg 00:00: 00:00 mouth in [place] tablet 00 :00 the Medical morning Branch and 1 tablet in the evening. Take with meals. methocarbam 2021-0 2022- No [id number] 500mg Take 1 Univers oL 500 mg 7-24 10-14 tablet by ity of tablet 00:00: 00:00 mouth 4 [place] 00 :00 (four) Medical times Branch daily. naproxen 2021- No [id number] 500mg Take 1 Univers (NAPROSYN) 12-13 tablet by ity of 500 mg 00:00: 00:00 mouth in [place] tablet 00 :00 the Medical morning Branch and 1 tablet in the evening. Take with meals. methocarbam 2021- No [id number] 500mg Take 1 Univers oL 500 mg [...] ty of mg tablet 09:11: 00:00 (two) [place] 35 :00 times Medical daily. Branch traZODONE 2021- No Take by [facility] ers (DESYREL) 11-20 mouth at ity o f 10 mg/mL 09:10: 00:00 [place]time. [place] oral 28 :00 Medical suspension Branch hydralAZINE Yes 25mg Take 25 mg Univers (APRESOLINE 11-20 by mouth ity of ) 25 mg 08:47: daily. [place] tablet 47 Medical Branch cephALEXin 2021- No [id number] 500mg Take 1 Univers (KEFLEX) 10-24 capsule [...] Indication s: acute pain buPROPion 0 Yes [id number] 150mg Take 1 U nivers XL 4-12 tablet by ity of (WELLBUTRIN 00:00: mouth [place] XL) 150 mg 00 daily. Medical 24 hr Branch tablet busPIRone 2021-0 Yes [id number] 30mg Take 1 Un matt 30 mg 4-12 tablet by ity of tablet 00:00: mouth 2 [place] 00 (two) Medical times Branch daily. SERTraline 2021-0 Yes [id number] 200mg Take 2 [facility] 100 mg 4-12 tablets by ity of tablet 00:00: mouth [place] 00 daily. Medical Branch buPROPion 0 Yes [id number] 150mg Take 1 U nivers XL 4-12 tablet by ity of (WELLBUTRIN 00:00: mouth [place] XL) 150 mg 00 daily. Medical 24 hr Branch tablet busPIRone 2021-0 Yes [id number] 30mg Take 1 Un matt 30 mg 4-12 tablet by ity of tablet 00:00: mouth 2 [place] 00 (two) Medical times Branch daily. SERTraline 2021-0 Yes [id number] 200mg Take 2 [facility] 100 mg 4-12 tablets by ity of tablet 00:00: mouth [place] 00 daily. Medical Branch buPROPion 2021-0 Yes [id number] 150mg Take 1 U nivers XL 4-12 tablet by ity of (WELLBUTRIN 00:00: mouth [place] XL) 150 mg 00 daily. Medical 24 hr Branch tablet busPIRone 2021-0 Yes [id number] 30mg Take 1 Un matt 30 mg 4-12 tablet by ity of tablet 00:00: mouth 2 [place] 00 (two) Medical times Branch daily. SERTraline 2021-0 Yes [id number] 200mg Take 2 [facility] 100 mg 4-12 tablets by ity of tablet 00:00: mouth [place] 00 daily. Medical Branch buPROPion 2021-0 Yes [id number] 150mg Take 1 U nivers XL 4-12 tablet by ity of (WELLBUTRIN 00:00: mouth [place] XL) 150 mg 00 daily. Medical 24 hr Branch tablet busPIRone 2021-0 Yes [id number] 30mg Take 1 Un matt 30 mg 4-12 tablet by ity of tablet 00:00: mouth 2 [place] 00 (two) Medical times Branch daily. SERTraline 0 Yes [id number] 200mg Take 2 Univers 100 mg 4-12 tablets by ity of tablet 00:00: mouth [place] 00 daily. Medical Branch buPROPion 0 Yes [id number] 150mg Take 1 U nivers XL 4-12 tablet by ity of (WELLBUTRIN 00:00: mouth [place] XL) 150 mg 00 daily. Medical 24 hr Branch tablet busPIRone 2021-0 Yes [id number] 30mg Take 1 Un matt 30 mg 4-12 tablet by ity of tablet 00:00: mouth 2 (two) Medical times Branch daily. SERTraline 0 Yes [id number] 200mg Take 2 Univers 100 mg 4-12 tablets by ity of tablet 00:00: mouth [place] 00 daily. Medical Branch buPROPion 0 Yes [id number] 150mg Take 1 U nivers XL 4-12 tablet by ity of (WELLBUTRIN 00:00: mouth [place] XL) 150 mg 00 daily. Medical 24 hr Branch tablet busPIRone 2021-0 Yes [id number] 30mg Take 1 Un matt 30 mg 4-12 tablet by ity of tablet 00:00: mouth 2 00 (two) Medical times Branch daily. SERTraline 2021-0 Yes [id number] 200mg Take 2 Univers 100 mg 4-12 tablets by ity of tablet 00:00: mouth [place] 00 daily. Medical Branch buPROPion 2021-0 Yes [id number] 150mg Take 1 U nivers XL 4-12 tablet by ity of (WELLBUTRIN 00:00: mouth [place] XL) 150 mg 00 daily. Medical 24 hr Branch tablet busPIRone 2021-0 Yes [id number] 30mg Take 1 Un matt 30 mg 4-12 tablet by ity of tablet 00:00: mouth 2 00 (two) Medical times Branch daily. SERTraline 2021-0 Yes [id number] 200mg Take 2 Univers 100 mg 4-12 tablets by ity of tablet 00:00: mouth [place] 00 daily. Medical Branch buPROPion 2021-0 Yes [id number] 150mg Take 1 U nivers XL 4-12 tablet by ity of (WELLBUTRIN 00:00: mouth [place] XL) 150 mg 00 daily. Medical 24 hr Branch tablet busPIRone 2021-0 Yes [id number] 30mg Take 1 Un matt 30 mg 4-12 tablet by ity of tablet 00:00: mouth 2 [place] 00 (two) Medical times Branch daily. SERTraline 2021-0 Yes [id number] 200mg Take 2 [facility] 100 mg 4-12 tablets by ity of tablet 00:00: mouth [place] 00 daily. Medical Branch buPROPion 2021-0 Yes [id number] 150mg Take 1 U nivers XL 4-12 tablet by ity of (WELLBUTRIN 00:00: mouth [place] XL) 150 mg 00 daily. Medical 24 hr Branch tablet busPIRone 2021-0 Yes [id number] 30mg Take 1 Un matt 30 mg 4-12 tablet by ity of tablet 00:00: mouth 2 [place] (two) Medical times Branch daily. SERTraline 2021-0 Yes [id number] 200mg Take 2 Univers 100 mg 4-12 tablets by ity of tablet 00:00: mouth [place] 00 daily. Medical Branch buPROPion 2021-0 Yes [id number] 150mg Take 1 U nivers XL 4-12 tablet by ity of (WELLBUTRIN 00:00: mouth [place] XL) 150 mg 00 daily. Medical 24 hr Branch tablet busPIRone 2021-0 Yes [id number] 30mg Take 1 Un matt 30 mg 4-12 tablet by ity of tablet 00:00: mouth 2 [place] 00 (two) Medical times Branch daily. SERTraline 2021-0 Yes [id number] 200mg Take 2 [facility] 100 mg 4-12 tablets by ity of tablet 00:00: mouth [place] 00 daily. Medical Branch buPROPion 2021-0 Yes [id number] 150mg Take 1 U nivers XL 4-12 tablet by ity of (WELLBUTRIN 00:00: mouth [place] XL) 150 mg 00 daily. Medical 24 hr Branch tablet busPIRone 2021-0 Yes [id number] 30mg Take 1 Un matt 30 mg 4-12 tablet by ity of tablet 00:00: mouth 2 [place] 00 (two) Medical times Branch daily. SERTraline 2021-0 Yes [id number] 200mg Take 2 [facility] 100 mg 4-12 tablets by ity of tablet 00:00: mouth [place] 00 daily. Medical Branch buPROPion 2021-0 Yes [id number] 150mg Take 1 U nivers XL 4-12 tablet by ity of (WELLBUTRIN 00:00: mouth [place] XL) 150 mg 00 daily. Medical 24 hr Branch tablet busPIRone 2021-0 Yes [id number] 30mg Take 1 Un matt 30 mg 4-12 tablet by ity of tablet 00:00: mouth 2 [place] 00 (two) Medical times Branch daily. SERTraline 2021-0 Yes [id number] 200mg Take 2 [facility] 100 mg 4-12 tablets by ity of tablet 00:00: mouth [place] 00 daily. Medical Branch buPROPion 2021-0 Yes [id number] 150mg Take 1 U nivers XL 4-12 tablet by ity of (WELLBUTRIN 00:00: mouth [place] XL) 150 mg 00 daily. Medical 24 hr Branch tablet busPIRone 2021-0 Yes [id number] 30mg Take 1 Un matt 30 mg 4-12 tablet by ity of tablet 00:00: mouth 2 00 (two) Medical times Branch daily. SERTraline 2021-0 Yes [id number] 200mg Take 2 [facility] 100 mg 4-12 tablets by ity of tablet 00:00: mouth [place] 00 daily. Medical Branch buPROPion 2021-0 Yes [id number] 150mg Take 1 U nivers XL 4-12 tablet by ity of (WELLBUTRIN 00:00: mouth [place] XL) 150 mg 00 daily. Medical 24 hr Branch tablet busPIRone 2021-0 Yes [id number] 30mg Take 1 Un matt 30 mg 4-12 tablet by ity of tablet 00:00: mouth 2 [place] 00 (two) Medical times Branch daily. SERTraline 2021-0 Yes [id number] 200mg Take 2 [facility] 100 mg 4-12 tablets by ity of tablet 00:00: mouth [place] 00 daily. Medical Branch buPROPion 2021-0 Yes [id number] 150mg Take 1 U nivers XL 4-12 tablet by ity of (WELLBUTRIN 00:00: mouth [place] XL) 150 mg 00 daily. Medical 24 hr Branch tablet busPIRone 2021-0 Yes [id number] 30mg Take 1 Un matt 30 mg 4-12 tablet by ity of tablet 00:00: mouth 2 [place] 00 (two) Medical times Branch daily. SERTraline 2021-0 Yes [id number] 200mg Take 2 [facility] 100 mg 4-12 tablets by ity of tablet 00:00: mouth [place] 00 daily. Medical Branch buPROPion 2021-0 Yes [id number] 150mg Take 1 U nivers XL 4-12 tablet by ity of (WELLBUTRIN 00:00: mouth [place] XL) 150 mg 00 daily. Medical 24 hr Branch tablet busPIRone 2021-0 Yes [id number] 30mg Take 1 Un matt 30 mg 4-12 tablet by ity of tablet 00:00: mouth 2 [place] 00 (two) Medical times Branch daily. SERTraline 0 Yes [id number] 200mg Take 2 [facility] 100 mg 4-12 tablets by ity of tablet 00:00: mouth [place] 00 daily. Medical Branch buPROPion 2021-0 Yes [id number] 150mg Take 1 U nivers XL 4-12 tablet by ity of (WELLBUTRIN 00:00: mouth [place] XL) 150 mg 00 daily. Medical 24 hr Branch tablet busPIRone 2021-0 Yes [id number] 30mg Take 1 Un matt 30 mg 4-12 tablet by ity of tablet 00:00: mouth 2 [place] 00 (two) Medical times Branch daily. SERTraline 2021-0 Yes [id number] 200mg Take 2 [facility] 100 mg 4-12 tablets by ity of tablet 00:00: mouth [place] 00 daily. Medical Branch buPROPion 2021-0 Yes [id number] 150mg Take 1 U nivers XL 4-12 tablet by ity of (WELLBUTRIN 00:00: mouth [place] XL) 150 mg 00 daily. Medical 24 hr Branch tablet busPIRone 2021-0 Yes [id number] 30mg Take 1 Un matt 30 mg 4-12 tablet by ity of tablet 00:00: mouth 2 [place] 00 (two) Medical times Branch daily. SERTraline 2021-0 Yes [id number] 200mg Take 2 [facility] 100 mg 4-12 tablets by ity of tablet 00:00: mouth [place] 00 daily. Medical Branch raltegravir 2022-0 Yes [id number] 400mg Take 1 Univers (ISENTRESS) 3-28 tablet by ity of 400 mg 00:00: mouth 2 [place] tablet 00 (two) Medical times Branch daily. raltegravir 2-0 Yes [id number] 400mg Take 1 Univers (ISENTRESS) 3-28 tablet by ity of 400 mg 00:00: mouth 2 [place] tablet 00 (two) Medical times Branch daily. raltegravir 2-0 Yes [id number] 400mg Take 1 [facility] (ISENTRESS) 3-28 tablet by ity of 400 mg 00:00: mouth 2 [place] tablet 00 (two) Medical times Branch daily. raltegravir 2021-0 Yes [id number] 400mg Take 1 [facility] (ISENTRESS) 3-28 tablet by ity of 400 mg 00:00: mouth 2 [place] tablet 00 (two) Medical times Branch daily. raltegravir 2021-0 Yes [id number] 400mg Take 1 Univers (ISENTRESS) 3-28 tablet by ity of 400 mg 00:00: mouth 2 [place] tablet 00 (two) Medical times Branch daily. raltegravir 2021-0 Yes [id number] 400mg Take 1 [facility] (ISENTRESS) 3-28 tablet by ity of 400 mg 00:00: mouth 2 [place] tablet 00 (two) Medical times Branch daily. raltegravir 2021-0 Yes [id number] 400mg Take 1 [facility] (ISENTRESS) 3-28 tablet by ity of 400 mg 00:00: mouth 2 [place] tablet 00 (two) Medical times Branch daily. raltegravir 2-0 Yes [id number] 400mg Take 1 [facility] (ISENTRESS) 3-28 tablet by ity of 400 mg 00:00: mouth 2 [place] tablet 00 (two) Medical times Branch daily. raltegravir 2-0 Yes [id number] 400mg Take 1 [facility] (ISENTRESS) 3-28 tablet by ity of 400 mg 00:00: mouth 2 [place] tablet 00 (two) Medical times Branch daily. raltegravir 2-0 Yes [id number] 400mg Take 1 [facility] (ISENTRESS) 3-28 tablet by ity of 400 mg 00:00: mouth 2 [place] tablet 00 (two) Medical times Branch daily. raltegravir 2-0 Yes [id number] 400mg Take 1 Univers (ISENTRESS) 3-28 tablet by ity of 400 mg 00:00: mouth 2 [place] tablet 00 (two) Medical times Branch daily. raltegravir 2021-0 Yes [id number] 400mg Take 1 [facility] (ISENTRESS) 3-28 tablet by ity of 400 mg 00:00: mouth 2 [place] tablet 00 (two) Medical times Branch daily. raltegravir 2021-0 Yes [id number] 400mg Take 1 [facility] (ISENTRESS) 3-28 tablet by ity of 400 mg 00:00: mouth 2 [place] tablet 00 (two) Medical times Branch daily. raltegravir 2021-0 Yes [id number] 400mg Take 1 [facility] (ISENTRESS) 3-28 tablet by ity of 400 mg 00:00: mouth 2 [place] tablet 00 (two) Medical times Branch daily. raltegravir 2021-0 Yes [id number] 400mg Take 1 Univers (ISENTRESS) 3-28 tablet by ity of 400 mg 00:00: mouth 2 [place] tablet 00 (two) Medical times Branch daily. raltegravir 2021-0 Yes [id number] 400mg Take 1 [facility] (ISENTRESS) 3-28 tablet by ity of 400 mg 00:00: mouth 2 [place] tablet 00 (two) Medical times Branch daily. raltegravir 2021-0 Yes [id number] 400mg Take 1 [facility] (ISENTRESS) 3-28 tablet by ity of 400 mg 00:00: mouth 2 [place] tablet 00 (two) Medical times Branch daily. raltegravir 2021-0 Yes [id number] 400mg Take 1 [facility] (ISENTRESS) 3-28 tablet by ity of 400 mg 00:00: mouth 2 [place] tablet 00 (two) Medical times Branch daily. LORazepam 1 2021-0 2021- No [id number] 1mg Take 1 Univers mg tablet 3-21 [...] times a tablet day. emtricitabi 202- No [id number] Take one [facility] ne-tenofovi -20 09-12 po daily ity of r alafen 00:00: 00:00 [place] (DESCOVY) 00 :00 Medical tablet Branch metoprolol Yes [id number] Take 1 [facility] tartrate 7-26 tablet Health (Lopressor) 00:00: (100 mg 100 MG 00 total) by tablet mouth 2 (two) times a day AND 0.5 tablets (50 mg total) every night. metoprolol Yes [id number] Take 1 [place] tartrate 7-26 tablet Health [...] (affected area in groin) hydrALAZINE Yes 50mg Q.[id number] Take 50 mg [facility] (APRESOLINE 7-19 [id number] mouth [facility] ) 50 MG [...] (affected area in groin) hydrALAZINE Yes 50mg Q.[id number] Take 50 mg [facility] (APRESOLINE 7-19 [id number] [facility] mouth [facility] ) 50 MG [...] (affected area in groin) hydrALAZINE Yes 50mg Q.[id number] Take 50 mg [facility] (APRESOLINE 7-19 [id number] [facility] mouth [facility] ) 50 MG [...] area in groin) hydrALAZINE 0 Yes 50mg Q.[id number] Take 50 mg [facility] (APRESOLINE 7-19 [id number] [address] mouth [facility] ) 50 MG [...] area in groin) hydrALAZINE 0 Yes 50mg Q.[id number] Take 50 mg [facility] (APRESOLINE 7-[id number] mouth [facility] ) 50 MG [...] (affected area in groin) hydrALAZINE Yes 50mg Q.[id number] Take 50 mg [facility] (APRESOLINE 7-19 [id number] mouth [facility] ) 50 MG [...] (affected area in groin) hydrALAZINE Yes 50mg Q.[id number] Take 50 mg [facility] (APRESOLINE 7-19 [id number] [address] mouth [facility] ) 50 MG [...] area in groin) hydrALAZINE 0 Yes 50mg Q.[id number] Take 50 mg [facility] (APRESOLINE 7-[id number] mouth [facility] ) 50 MG [...] (affected area in groin) hydrALAZINE Yes 50mg Q.[id number] Take 50 mg [facility] (APRESOLINE 7-[id number] mouth [facility] ) 50 MG [...] (affected area in groin) hydrALAZINE Yes 50mg Q.[id number] Take 50 mg [facility] (APRESOLINE 7-19 [id number] [address] mouth [facility] ) 50 MG [...] area in groin) hydrALAZINE 0 Yes 50mg Q.[id number] Take 50 mg [facility] (APRESOLINE 7-19 [id number] mouth [facility] ) 50 MG [...] (affected area in groin) hydrALAZINE Yes 50mg Q.[id number] Take 50 mg [facility] (APRESOLINE 7-[id number] mouth [facility] ) 50 MG [...] (affected area in groin) hydrALAZINE Yes 50mg Q.[id number] Take 50 mg [facility] (APRESOLINE 7-[id number] mouth [facility] ) 50 MG [...] (affected area in groin) hydrALAZINE Yes 50mg Q.[id number] Take 50 mg [facility] (APRESOLINE 7-[id number] mouth [facility] [address] ) 50 MG [...] area in groin) hydrALAZINE 0 Yes 50mg Q.[id number] Take 50 mg [facility] (APRESOLINE 7-[id number] mouth [facility] [address] ) 50 MG [...] (affected area in groin) hydrALAZINE Yes 50mg Q.[id number] Take 50 mg [facility] (APRESOLINE 7-[id number] mouth [facility] [address] ) 50 MG [...] area in groin) hydrALAZINE 0 Yes 50mg Q.[id number] Take 50 mg [facility] (APRESOLINE 7-[id number] mouth [facility] ) 50 MG [...] area in groin) hydrALAZINE 0 Yes 50mg Q.[id number] Take 50 mg [facility] (APRESOLINE 7-19 [id number] mouth [facility] ) 50 MG [...] (affected area in groin) hydrALAZINE Yes 50mg Q.[id number] Take 50 mg [facility] (APRESOLINE 7-[id number] mouth [facility] [address] ) 50 MG [...] area in groin) hydrALAZINE 0 Yes 50mg Q.[id number] Take 50 mg [facility] (APRESOLINE 7-[id number] [address] mouth [facility] ) 50 MG [...] area in groin) hydrALAZINE 2020-0 Yes 50mg Q.[id number] Take 50 mg [facility] (APRESOLINE 7-[id number] mouth [facility] ) 50 MG 10:51: 3D (three) [facility] tablet 25 times a l day. busPIRone 2020-0 Yes 20mg QD Take 20 mg [facility] (BUSPAR) 10 7-[address] [facility] tablet 10:51: nightly. [facility] 25 l acetaminoph 2020-0 Yes 1000mg Q.5D [...] (affected area in groin) hydrALAZINE Yes 50mg Q.[id number] Take 50 mg [facility] (APRESOLINE 7-[id number] mouth [facility] [address] ) 50 MG [...] (affected area in groin) hydrALAZINE Yes 50mg Q.[id number] Take 50 mg [facility] (APRESOLINE 7-[id number] mouth [facility] ) 50 MG [...] area in groin) hydrALAZINE 0 Yes 50mg Q.[id number] Take 50 mg [facility] (APRESOLINE 7-[id number] mouth [facility] ) 50 MG [...] (affected area in groin) hydrALAZINE Yes 50mg Q.[id number] Take 50 mg [facility] (APRESOLINE 7-[id number] mouth [facility] [address] ) 50 MG [...] (affected area in groin) hydrALAZINE Yes 50mg Q.[id number] Take 50 mg [facility] (APRESOLINE 7-[id number] mouth [facility] ) 50 MG [...] area in groin) hydrALAZINE 0 Yes 50mg Q.[id number] Take 50 mg [facility] (APRESOLINE 7-[id number] mouth [facility] ) 50 MG [...] (affected area in groin) hydrALAZINE Yes 50mg Q.[id number] Take 50 mg [facility] (APRESOLINE 7-[id number] mouth [facility] ) 50 MG [...] (affected area in groin) hydrALAZINE Yes 50mg Q.[id number] Take 50 mg [facility] (APRESOLINE 7-[id number] mouth [facility] ) 50 MG [...] area in groin) hydrALAZINE 0 Yes 50mg Q.[id number] Take 50 mg [facility] (APRESOLINE 7-[id number] mouth [facility] [address] ) 50 MG [...] area in groin) hydrALAZINE 0 Yes 50mg Q.[id number] Take 50 mg [facility] (APRESOLINE 7-[id number] mouth [address] ) 50 MG [...] (affected area in groin) hydrALAZINE Yes 50mg Q.[id number] Take 50 mg [facility] (APRESOLINE 7-[id number] mouth [address] ) 50 MG [...] (affected area in groin) hydrALAZINE Yes 50mg Q.[id number] Take 50 mg [facility] (APRESOLINE 7-[id number] [address] mouth [facility] [address] ) 50 MG [...] area in groin) hydrALAZINE 2021-0 Yes 50mg Q.[id number] Take 50 mg [facility] (APRESOLINE 7-[id number] mouth [facility] ) 50 MG 10:51: 3D (three) [facility] tablet 25 times a l day. busPIRone 0 Yes 20mg QD Take 20 mg [facility] (BUSPAR) 10 7-[address] MG tablet 10:51: nightly. [facility] 25 l acetaminoph 2020-0 Yes 1000mg Q.5D [...] (affected area in groin) hydrALAZINE Yes 50mg Q.[id number] Take 50 mg [facility] (APRESOLINE 7-[id number] mouth [facility] ) 50 MG [...] (affected area in groin) hydrALAZINE Yes 50mg Q.[id number] Take 50 mg [facility] (APRESOLINE 7-[id number] mouth [facility] ) 50 MG [...] Hospita tablet 25 l nystatin-tr 2020-0 Yes [id number] Apply to [facility] 7-06 area(s) 3 ity of cream 00:00: (three) [place] 00 times Medical daily. Branch nystatin-tr 202-0 Yes [id number] Apply to [facility] iainolone 7-06 area(s) 3 ity of cream 00:00: (three) [place] 00 times Medical daily. Branch nystatin-tr 2021-0 [facility] [id number] [facility] of cream 00:00: (three) [place] 00 times Medical daily. Branch nystatin-tr 2021-0 Yes [id number] Apply to [facility] 7-06 area(s) 3 ity of cream 00:00: (three) [place] 00 times Medical daily. Branch nystatin-tr 202-0 Yes [id number] Apply to [facility] iamcinolone 7-06 area(s) 3 ity of cream 00:00: (three) [place] 00 times Medical daily. Branch nystatin-tr 2021-0 Yes [id number] Apply to [facility] iamcinolone 7-06 area(s) 3 ity of cream 00:00: (three) [place] 00 times Medical daily. Branch nystatin-tr 2021-0 Yes [id number] Apply to [facility] iamcinolone 7-06 area(s) 3 ity of cream 00:00: (three) [place] 00 times Medical daily. Branch nystatin-tr 2021-0 Yes [id number] Apply to [facility] iamcinolone 7-06 area(s) 3 ity of cream 00:00: (three) [place] 00 times Medical daily. Branch nystatin-tr 2021-0 Yes [id number] Apply to [facility] iamcinolone 7-06 area(s) 3 ity of cream 00:00: (three) [place] 00 times Medical daily. Branch nystatin-tr 2021-0 Yes [id number] Apply to Univers iamcinolone 7-06 area(s) 3 ity of cream 00:00: (three) [place] 00 times Medical daily. Branch nystatin-tr 2021-0 Yes [id number] Apply to [facility] iamcinolone 7-06 area(s) 3 ity of cream 00:00: (three) [place] 00 times Medical daily. Branch nystatin-tr 2021-0 Yes [id number] Apply to [facility] iamcinolone 7-06 area(s) 3 ity of cream 00:00: (three) [place] 00 times Medical daily. Branch nystatin-tr 2021-0 Yes [id number] Apply to [facility] iamcinolone 7-06 area(s) 3 ity of cream 00:00: (three) [place] 00 times Medical daily. Branch nystatin-tr 2021-0 Yes [id number] Apply to [facility] iamcinolone 7-06 area(s) 3 ity of cream 00:00: (three) [place] 00 times Medical daily. Branch nystatin-tr 2021-0 Yes [id number] Apply to [facility] iamcinolone 7-06 area(s) 3 ity of cream 00:00: (three) [place] 00 times Medical daily. Branch nystatin-tr 2021-0 Yes [id number] Apply to [facility] iamcinolone 7-06 area(s) 3 ity of cream 00:00: (three) [place] 00 times Medical daily. Branch nystatin-tr 2020-0 Yes [id number] [facility]y of cream 00:00: (three) [place] 00 times Medical daily. Branch nystatin-tr 2020-0 Yes [id number] [facility] ity of cream 00:00: (three) [place] 00 times Medical daily. Branch budesonide- 2020-0 2021- No 1{puff} QD Inhale 1 [facility] formoteroL 6-25 06-[address] (SYMBICORT) 14:37: 00:00 morning. H ospita 160-4.5 02 :00 l mcg/actuati on inhaler hydrALAZINE Yes [id number] 50mg Q.[id number] Take 1 [place] (Apresoline 6-11 [id number] tablet (50 Health ) 50 MG 00:00: 3D mg total) tablet 00 by mouth 3 (three) times a day. hydrALAZINE Yes [id number] 50mg Q.[id number] Take 1 [place] (Apresoline 6-11 [id number] tablet (50 Health ) 50 MG 00:00: [...] tablet 00 lisinopril Yes [place] 40 MG 530 Health tablet 00:00: 00 sertraline 2021- No 200mg 200 mg. [place] (Zoloft) 30 02-22 Health 100 MG 00:00: 00:00 tablet 00 :00 mupirocin Yes [place] (Bactroban) 28 Health 2 % 00:00: ointment 00 mupirocin Yes [place] (Bactroban) 28 Health 2 % 00:00: ointment 00 nystatin 2020- No [id number] Q.25D Take 5 mL [facility] (MYCOSTATIN 10-06 [...] ia 4-10 (Same as: l 14:00: Norvasc) [place] 00 emtricitabi No Notes: Caesar lisa ne 200 MG / 4-10 (Same as: l tenofovir 14:00: Descovy) Herm ariel alafenamide 00 Non-formul 25 MG Oral nancy Tablet [Descovy] pantoprazol No Notes: [place] lisa e 4-10 Tablet l 14:00: should not be chewed or crushed. (Same as: Protonix) Amiodarone No Notes: Memor ia 4-10 (Same as: l 14:00: Cordarone) [place] 00 Amlodipine No Notes: Memor ia 4-10 [...] e 4-10 Tablet l 14:00: should not [place] 00 be chewed or crushed. (Same as: Protonix) Amiodarone No Notes: Memor ia 4-10 (Same as: l 14:00: Cordarone) [place] Amlodipine No Notes: Memor ia 4-10 (Same as: l 14:00: Norvasc) [place] emtricitabi No Notes: Caesar lisa ne 200 [...] ia 4-10 (Same as: l 14:00: Cordarone) [place] Amlodipine No Notes: Memor ia 4-10 (Same as: l 14:00: Norvasc) [place] emtricitabi No Notes: Caesar lisa ne 200 MG / 4-10 (Same as: l tenofovir 14:00: Descovy) Herm ariel alafenamide 00 Non-formul 25 MG Oral nancy Tablet [Descovy] Sertraline No Notes: Memor ia 4-10 (Same as: l 14:00: Zoloft) [place] 00 pantoprazol No Notes: Caesar lisa e 4-10 Tablet l 14:00: should not [place] 00 be chewed or crushed. (Same as: Protonix) Amiodarone No Notes: Memor ia 4-10 (Same as: l 14:00: Cordarone) [place] Amlodipine No Notes: Memor ia 4-10 (Same [...] ia 4-10 (Same as: l 14:00: Cordarone) [place] Amlodipine No Notes: Memor ia 4-10 (Same as: l 14:00: Norvasc) [place] emtricitabi No Notes: Caesar lisa ne 200 MG / 4-10 (Same as: l tenofovir 14:00: Descovy) Herm ariel alafenamide 00 Non-formul 25 MG Oral nancy Tablet [Descovy] Sertraline No Notes: Memor ia 4-10 (Same as: l 14:00: Zoloft) [place] pantoprazol No Notes: Caesar lisa e 4-10 Tablet l 14:00: should not [place] 00 be chewed or crushed. (Same as: Protonix) Amiodarone No Notes: Memor ia 4-10 (Same as: l 14:00: Cordarone) [place] 00 Amlodipine No Notes: Memor ia 4-10 (Same as: l 14:00: Norvasc) [place] emtricitabi No Notes: Caesar lisa ne 200 MG / 4-10 (Same as: l tenofovir 14:00: Descovy) Herm ariel alafenamide 00 Non-formul 25 MG Oral nancy Tablet [Descovy] Sertraline No Notes: Memor ia 4-10 (Same as: l 14:00: Zoloft) [place] 00 pantoprazol No Notes: Caesar lisa e 4-10 Tablet l 14:00: should not [place] 00 be chewed or crushed. (Same as: Protonix) Amiodarone No Notes: Memor ia 4-10 (Same as: l 14:00: Cordarone) [place] 00 Sucralfate No Notes: May M emoria 4-10 interfere l 02:00: w/enteral [place] 00 feeds - Take 1 hr before or 2 hr after antacids, dairy pdt, meals & minerals - On empty stomach. For patients unable to swallow tablet, dissolve in 10mL - 30mL of water or juice and stir before giving. (Same As: Carafate) Saline No Notes: Memoria Flush 0.9% 4-10 (Same as: l 02:00: BD [place] 00 Posiflush) Eliquis No Notes: Memoria 4-10 [...] 0.9% 4-10 (Same as: l 02:00: BD [place] 00 Posiflush) Eliquis No Notes: Memoria 4-10 [...] 0.9% 4-10 (Same as: l 02:00: BD [place] 00 Posiflush) Eliquis No Notes: Memoria 4-10 [...] 0.9% 4-10 (Same as: l 02:00: BD [place] 00 Posiflush) Eliquis No Notes: Memoria 4-10 [...] 0.9% 4-10 (Same as: l 02:00: BD [place] 00 Posiflush) Eliquis No Notes: Memoria 4-10 Same as: l 02:00: Eliquis [place] Hydralazine No Notes: Caesar lisa Hydrochlori 4-10 (Same as: l de 50 MG 02:00: Apresoline Her mitchell Oral Tablet 00 ) May interfere w/enteral feedings Take With Food Sucralfate No Notes: May M emoria 4-10 interfere l 02:00: w/enteral [place] 00 feeds - Take 1 hr before [...] 0.9% 4-10 (Same as: l 02:00: BD [place] Posiflush) Eliquis No Notes: Memoria 4-10 Same as: l 02:00: Eliquis [place] Hydralazine No Notes: Caesar lisa Hydrochlori 4-10 (Same as: l de 50 MG 02:00: Apresoline Her mitchell Oral Tablet 00 ) May interfere w/enteral feedings Take With Food acetaminoph No Notes: Do M emoria en-codeine 4-10 not exceed l #3 00:12: 4gm/day of [place] acetaminop hen. (Same as: Tylenol with Codeine [...] not exceed l #3 00:12: 4gm/day of [place] acetaminop hen. (Same as: Tylenol with Codeine # 3) acetaminoph No Notes: Do M emoria en-codeine 4-10 not exceed l #3 00:12: 4gm/day of [place] acetaminop hen. (Same as: Tylenol with Codeine # 3) acetaminoph No Notes: Do M emoria en-codeine 4-10 not exceed l #3 00:12: 4gm/day of [place] acetaminop hen. (Same as: Tylenol with Codeine # 3) acetaminoph No Notes: Do M emoria en-codeine 4-10 not exceed l #3 00:12: 4gm/day of [place] acetaminop hen. (Same as: Tylenol with Codeine # 3) Buspirone No Notes: Memori a 08-29 (Same As: l 22:00: BuSpar) Lisinopril No 40 mg, 1 Mem oria 08-29 tab, l 22:00: Route: PO, Drug form: [...] oria 4-09 tab, l 22:00: Route: PO, [place] Drug form: TAB, BID, Dosing Weight 97.273, kg, Start date: 08/29/20 17:00:00 CDT, Duration: 30 day, Stop date: 09/28/20 9:00:00 CDT metoprolol 1-0 No 100 mg, 1 Me moria tartrate 4-09 tab, l 22:00: Route: PO, [place] 00 Drug form: TAB, BID, Dosing Weight [...] oria 4-09 tab, l 22:00: Route: PO, [place] Drug form: TAB, BID, Dosing Weight 97.273, [...] oria 4-09 tab, l 22:00: Route: PO, [place] 00 Drug form: TAB, BID, Dosing Weight [...] oria 4-09 tab, l 22:00: Route: PO, [place] 00 Drug form: TAB, BID, Dosing Weight [...] oria 4-09 tab, l 22:00: Route: PO, [place] 00 Drug form: TAB, BID, Dosing Weight 97.273, kg, Start date: 08/29/20 17:00:00 CDT, Duration: 30 day, Stop date: 09/28/20 9:00:00 CDT metoprolol 2021-0 No 100 mg, 1 Me moria tartrate 4-09 tab, l 22:00: Route: PO, [place] 00 Drug form: TAB, BID, Dosing Weight [...] oria 4- tab, l 22:00: Route: PO, [place] 00 Drug form: TAB, BID, Dosing Weight 97.273, kg, Start date: 08/29/20 17:00:00 CDT, Duration: 30 day, Stop date: 09/28/20 9:00:00 CDT metoprolol 2020-0 No 100 mg, 1 Me moria tartrate 4- tab, l 22:00: Route: PO, [place] 00 Drug form: TAB, BID, Dosing Weight [...] CDT, 0 Morphine 2020-0 No Notes: Memoria - (Same l 17:07: as:MORPhin e Sulfate) Morphine No Notes: Memoria 4- (Same l 17:07: as:MORPhin [place] 00 e Sulfate) Morphine No Notes: Memoria 4- (Same l 17:07: as:MORPhin [place] 00 e Sulfate) Morphine No Notes: Memoria 4- (Same l 17:07: as:MORPhin [place] 00 e Sulfate) Morphine No Notes: Memoria 4- (Same l 17:07: as:MORPhin [place] 00 e Sulfate) Morphine No Notes: Memoria 4- (Same l 17:07: as:MORPhin [place] 00 e Sulfate) Morphine No Notes: Memoria 4- (Same l 17:07: as:MORPhin [place] 00 e Sulfate) buPROPion 2020-0 No 150 [...] 30 tab, 0 coated Refill(s), tablet Pharmacy: [facility] 149, 162.56, cm, 08/29/20 5:30:00 CDT, Height, 97.273, kg, 08/29/20 5:30:00 CDT, Weight pantoprazol 2020-0 Yes 40 mg = 1 M emoria e 40 mg 4-09 tab, PO, l oral 15:27: Daily, # [place] enteric 00 30 tab, 0 coated Refill(s), tablet Pharmacy: [facility] 149, 162.56, cm, 08/29/20 5:30:00 CDT, Height, 97.273, kg, 08/29/20 5:30:00 CDT, Weight pantoprazol 2020-0 Yes 40 mg = 1 M emoria e 40 mg 4-09 tab, PO, l oral 15:27: Daily, # [place] enteric 00 30 tab, 0 coated Refill(s), tablet Pharmacy: [place] [id number], 162.56, cm, 08/29/20 5:30:00 CDT, Height, 97.273, kg, 08/29/20 5:30:00 CDT, Weight pantoprazol 1-0 Yes 40 mg = 1 M emoria e 40 mg 4-09 tab, PO, l oral 15:27: Daily, # [place] enteric 00 30 tab, 0 coated Refill(s), tablet Pharmacy: [facility] 149, 162.56, cm, 08/29/20 5:30:00 CDT, Height, 97.273, kg, 08/29/20 5:30:00 CDT, Weight pantoprazol 1-0 Yes 40 mg = 1 M emoria e 40 mg 4-09 tab, PO, l oral 15:27: Daily, # [place] enteric 00 30 tab, 0 coated Refill(s), tablet Pharmacy: [facility] 149, 162.56, cm, 08/29/20 5:30:00 CDT, Height, 97.273, kg, 08/29/20 5:30:00 CDT, Weight pantoprazol 1-0 Yes 40 mg = 1 M emoria e 40 mg 4-09 tab, PO, l oral 15:27: Daily, # [place] enteric 00 30 tab, 0 coated Refill(s), tablet Pharmacy: [facility] 149, 162.56, cm, 08/29/20 5:30:00 CDT, Height, 97.273, kg, 08/29/20 5:30:00 CDT, Weight pantoprazol 1-0 Yes 40 mg = 1 M emoria e 40 mg 4-09 tab, PO, l oral 15:27: Daily, # [place] enteric 00 30 tab, 0 coated Refill(s), tablet Pharmacy: [facility] [place] 149, 162.56, cm, 08/29/20 5:30:00 CDT, Height, [...] Skylar nn 00 tab, 0 Refill(s), Pharmacy: [facility] 149, 162.56, cm, 08/29/20 5:30:00 CDT, Height, 97.273, kg, 08/29/20 5:30:00 CDT, Weight pantoprazol 2020-0 No 40 mg = 1 M emoria e 40 mg 4-09 tab, PO, l oral 15:26: Daily, # [place] enteric 00 30 tab, 0 coated Refill(s) tablet sucralfate 2020-0 Yes 1 gm = 1 Mem oria 1 g oral 4-09 tab, PO, l tablet 15:26: Q12H, # 28 Skylar nn 00 tab, 0 Refill(s), Pharmacy: [facility] 149, 162.56, cm, 08/29/20 [...] Skylar nn 00 tab, 0 Refill(s), Pharmacy: [place] [address], 162.56, cm, 08/29/20 5:30:00 CDT, Height, 97.273, kg, 08/29/20 5:30:00 CDT, Weight pantoprazol 2020-0 No 40 mg = 1 M emoria e 40 mg 4-09 tab, PO, l oral 15:26: Daily, # [place] enteric 00 30 tab, 0 coated Refill(s) tablet sucralfate 2020-0 Yes 1 gm = 1 Mem oria 1 g oral 4-09 tab, PO, l tablet 15:26: Q12H, # 28 Skylar nn 00 tab, 0 Refill(s), Pharmacy: [place] [address], 162.56, cm, 08/29/20 5:30:00 CDT, Height, 97.273, [...] Skylar nn 00 tab, 0 Refill(s), Pharmacy: [facility] 149, 162.56, cm, 08/29/20 5:30:00 CDT, Height, 97.273, kg, 08/29/20 5:30:00 CDT, Weight pantoprazol 2020-0 No 40 mg = 1 M emoria e 40 mg 4-09 tab, PO, l oral 15:26: Daily, # [place] enteric 00 30 tab, 0 coated Refill(s) tablet sucralfate 2020-0 Yes 1 gm = 1 Mem oria 1 g oral 4-09 tab, PO, l tablet 15:26: Q12H, # 28 Skylar nn 00 tab, 0 Refill(s), Pharmacy: [facility] 149, 162.56, cm, 08/29/20 [...] Skylar nn 00 tab, 0 Refill(s), Pharmacy: [facility] 149, 162.56, cm, 08/29/20 5:30:00 CDT, Height, 97.273, kg, 08/29/20 5:30:00 CDT, Weight Saline 2021-0 No Notes: Memoria Flush 0.9% 4-09 (Same as: l 15:25: BD [place] 00 Posiflush) Lorazepam No Notes: Memori a 4-09 (Same as: l 15:25: Ativan) [place] 00 Saline No Notes: Memoria Flush 0.9% 4-09 (Same as: l 15:25: BD [place] 00 Posiflush) Lorazepam No Notes: Memori a 4-09 (Same as: l 15:25: Ativan) [place] 00 Saline No Notes: Memoria Flush 0.9% 4-09 (Same as: l 15:25: BD [place] 00 Posiflush) Saline No Notes: Memoria Flush 0.9% 4-09 (Same as: l 15:25: BD [place] 00 Posiflush) Lorazepam No Notes: Memori a 4-09 (Same as: l 15:25: Ativan) [place] 00 Lorazepam No Notes: Memori a 4-09 [...] Drug form: l mg + 15:00: INJ, [place] 00 Dosing Weight 97.3, kg, Start date: 08/29/20 10:00:00 CDT, Stop date: 08/29/20 11:00:00 CDT Isuprel HCl 1-0 No Route: IV, Memoria (ANES) 0.2 08-29 Drug form: l mg + 15:00: INJ, [place] 00 Dosing Weight 97.3, kg, Start date: [...] Drug form: l mg + 15:00: INJ, [place] 00 Dosing Weight 97.3, kg, Start date: 08/29/20 10:00:00 CDT, Stop date: 08/29/20 11:00:00 CDT Isuprel HCl 1-0 No Route: IV, Memoria (ANES) 0.2 08-29 Drug form: l mg + 15:00: INJ, [place] 00 Dosing Weight 97.3, kg, Start date: [...] 00 Stop date: 08/29/20 9:29:00 CDT propofol 202-0 [...] 08-29 Drug form: l 14:18: INJ, ONCE, [place] 00 Stop date: 08/29/20 9:18:00 CDT heparin [...] 08-29 Route: PO, l 14:01: Drug form: [place] 00 TAB, ONCE, Dosing Weight 97.273, kg, [...] oria ne 08-29 Route: l 14:01: IVP, [place] 00 Q5Min, Dosing Weight 97.273, kg, PRN [...] Memori a 08-29 Route: l 14:01: IVP, [place] 00 Q2MIN, Dosing Weight 97.273, kg, PRN Narcotic Reversal, Start date: 08/29/20 9:01:00 CDT, Duration: 8 doses or times, Stop date: Limited # of times Ondansetron 1-0 No 4 mg, Memor ia 08-29 Route: l 14:01: IVP, ONCE, [place] 00 Dosing Weight 97.273, kg, PRN Nausea & Vomiting, Start date: 08/29/20 9:01:00 CDT Labetalol 1-0 No 10 mg, Memori a 08-29 Route: l 14:01: IVP, [place] 00 Q5Min, Dosing Weight 97.273, kg, PRN Elevated BP, Start date: 08/29/20 9:01:00 CDT, Duration: 5 doses or times, Stop date: Limited # of times Acetaminoph 2020-0 No 1,000 mg, M emoria en 08-29 Route: PO, l 14:01: Drug form: [place] 00 TAB, ONCE, Dosing Weight 97.273, kg, [...] oria ne 08-29 Route: l 14:01: IVP, [place] 00 Q5Min, Dosing Weight 97.273, kg, PRN Pain Score 7-10, Start date: 08/29/20 9:01:00 CDT, Duration: 4 doses or times, Stop date: Limited # of times Flumazenil 1-0 No 0.2 mg, Caesar lisa 08-29 Route: l 14:01: IVP, PRN, [place] 00 Dosing Weight 97.273, kg, PRN Benzodiaze pine Reversal, Initial dose, Start date: 08/29/20 9:01:00 CDT, Duration: 30 day, Stop date: 09/28/20 9:00:00 CDT Naloxone 1-0 No 0.4 mg, Memori a 08-29 Route: l 14:01: IVP, [place] 00 Q2MIN, Dosing Weight 97.273, kg, PRN [...] Memori a 08-29 Route: l 14:01: IVP, [place] 00 Q5Min, Dosing Weight 97.273, kg, PRN Elevated BP, Start date: 08/29/20 9:01:00 CDT, Duration: 5 doses or times, Stop date: Limited # of times Acetaminoph 1-0 No 1,000 mg, M emoria en 08-29 Route: PO, l 14:01: Drug form: [place] 00 TAB, ONCE, Dosing Weight 97.273, kg, [...] ia 08-29 Route: l 14:01: IVP, ONCE, [place] Dosing Weight 97.273, kg, PRN Nausea & Vomiting, Start date: 08/29/20 9:01:00 CDT Labetalol 1-0 No 10 mg, Memori a 08-29 Route: l 14:01: IVP, [place] 00 Q5Min, Dosing Weight 97.273, kg, PRN Elevated BP, Start date: 08/29/20 9:01:00 CDT, Duration: 5 doses or times, Stop date: Limited # of times Acetaminoph 1-0 No 1,000 mg, M emoria en 08-29 Route: PO, l 14:01: Drug form: [place] 00 TAB, ONCE, Dosing Weight 97.273, kg, [...] 08-29 Route: PO, l 14:01: Drug form: [place] 00 TAB, ONCE, Dosing Weight 97.273, kg, [...] oria ne 08-29 Route: l 14:01: IVP, [place] 00 Q5Min, Dosing Weight 97.273, kg, PRN [...] of times Flumazenil 1-0 No 0.2 mg, Casear lisa 08-29 Route: l 14:01: IVP, PRN, [...] Memori a 08-29 Route: l 14:01: IVP, [place] 00 Q5Min, Dosing Weight 97.273, kg, PRN [...] oria ne 08-29 Route: l 14:01: IVP, [place] 00 Q5Min, Dosing Weight 97.273, kg, PRN Pain Score 7-10, Start date: 08/29/20 9:01:00 CDT, Duration: 4 doses or times, Stop date: Limited # of times Flumazenil 2020-0 No 0.2 mg, Caesar lisa 08-29 Route: l 14:01: IVP, PRN, [place] 00 Dosing Weight 97.273, kg, PRN Benzodiaze [...] ia 08-29 Route: l 14:01: IVP, ONCE, [place] 00 Dosing Weight 97.273, kg, PRN Nausea & Vomiting, Start date: 08/29/20 9:01:00 CDT Labetalol 1-0 No 10 mg, Memori a 08-29 Route: l 14:01: IVP, [place] 00 Q5Min, Dosing Weight 97.273, kg, PRN Elevated BP, Start date: 08/29/20 9:01:00 CDT, Duration: 5 doses or times, Stop date: Limited # of times Acetaminoph 2020-0 No 1,000 mg, M emoria en 08-29 Route: PO, l 14:01: Drug form: [place] 00 TAB, ONCE, Dosing Weight 97.273, kg, [...] oria ne 08-29 Route: l 14:01: IVP, [place] 00 Q5Min, Dosing Weight 97.273, kg, PRN Pain Score 7-10, Start date: 08/29/20 9:01:00 CDT, Duration: 4 doses or times, Stop date: Limited # of times Flumazenil 2020-0 No 0.2 mg, Caesar lisa 08-29 Route: l 14:01: IVP, PRN, [place] 00 Dosing Weight 97.273, kg, PRN Benzodiaze [...] CDT rocuronium 202-0 No Route: IV, Emerald suarezria (ANES) 08-29 [...] 08-29 Drug form: l 13:42: INJ, ONCE, [place] 00 Stop date: 08/29/20 8:42:00 CDT fentaNYL 2020-0 No Route: IV, Mem oria (ANES) 08-29 Drug form: l 13:42: INJ, ONCE, [place] 00 Stop date: 08/29/20 8:42:00 CDT fentaNYL 2020-0 No Route: IV, Mem oria (ANES) 08-29 Drug form: l 13:42: INJ, ONCE, [place] 00 Stop date: 08/29/20 8:42:00 CDT fentaNYL 2020-0 No Route: IV, Mem oria (ANES) 08-29 Drug form: l 13:42: INJ, ONCE, [place] 00 Stop date: 08/29/20 8:42:00 CDT fentaNYL [...] Drug form: l 10 13:15: INJ, Start [place] microgram date: 08/29/20 8:15:00 CDT, Stop date: 08/29/20 9:15:00 CDT norepinephr 2020-0 No Route: IV, Memoria ine (ANES) 08-29 Drug form: l 10 13:15: INJ, Start [place] microgram 00 date: 08/29/20 8:15:00 CDT, Stop date: 08/29/20 9:15:00 CDT norepinephr 2020-0 No Route: IV, Memoria ine (ANES) 08-29 Drug form: l 10 13:15: INJ, Start [place] microgram date: 08/29/20 8:15:00 CDT, Stop date: 08/29/20 9:15:00 CDT norepinephr 2020-0 No Route: IV, Memoria ine (ANES) 08-29 Drug form: l 10 13:15: INJ, Start [place] microgram date: 08/29/20 8:15:00 CDT, Stop date: 08/29/20 9:15:00 CDT norepinephr 2020-0 No Route: IV, Memoria ine (ANES) 08-29 Drug form: l 10 13:15: INJ, Start [place] microgram date: 08/29/20 8:15:00 CDT, Stop date: 08/29/20 9:15:00 CDT Sodium 2020-0 No Route: IV, Memor ia Chloride 4-09 Total l 0.9% IV 12:30: Volume: [place] (ANES) 1000 00 1,000, mL Start date: 08/29/20 7:30:00 CDT, Stop date: 08/29/20 8:30:00 CDT Sodium 202-0 No Route: IV, Memor ia Chloride 4-09 Total l 0.9% IV 12:30: Volume: [place] (ANES) 1000 00 1,000, mL Start date: [...] 4-09 Total l 0.9% IV 12:30: Volume: [place] (ANES) 1000 00 1,000, mL Start date: [...] PO, l Hydrochlori 11:42: Q24H, # 30 [place] de 150 MG 00 tab, 0 Extended [...] PO, l Hydrochlori 11:42: Q24H, # 30 [place] de 150 MG 00 tab, 0 Extended Refill(s) Release Tablet 24 HR Yes 150 mg = 1 Memori a Bupropion -09 tab, PO, l Hydrochlori 11:42: Q24H, # 30 [place] de 150 MG 00 tab, 0 Extended Refill(s) Release Tablet apixaban 5 Yes 5 mg, PO, Me moria MG Oral 08-29 Q12H, tab, l Tablet 11:41: 0 [place] [Eliquis] 00 Refill(s), For Atrial Fibrilatio n apixaban 5 2020-0 Yes 5 mg, PO, Me moria MG Oral 08-29 Q12H, tab, l Tablet 11:41: 0 [place] [Eliquis] 00 Refill(s), For Atrial Fibrilatio n apixaban 5 2020-0 Yes 5 mg, PO, Me moria MG Oral 08-29 Q12H, tab, l Tablet 11:41: 0 [place] [Eliquis] 00 Refill(s), For Atrial Fibrilatio n apixaban 5 2020-0 Yes 5 mg, PO, Me moria MG Oral 08-29 Q12H, tab, l Tablet 11:41: 0 [place] [Eliquis] 00 Refill(s), For Atrial Fibrilatio n apixaban 5 2020-0 Yes 5 mg, PO, Me moria MG Oral 08-29 Q12H, tab, l Tablet 11:41: 0 [place] [Eliquis] 00 Refill(s), For Atrial Fibrilatio n apixaban 5 2020-0 Yes 5 mg, PO, Me moria MG Oral 08-29 Q12H, tab, l Tablet 11:41: 0 [place] [Eliquis] 00 Refill(s), For Atrial Fibrilatio n [...] tab, PO, l tablet 11:38: Daily, # [place] 00 90 tab, 3 Refill(s) AMIODarone 2020-0 Yes 200 mg = 1 M emoria 200 mg oral 4-09 tab, PO, l tablet 11:38: Daily, # [place] 00 90 tab, 3 Refill(s) AMIODarone 2020-0 Yes 200 mg = 1 M emoria 200 mg oral 4-09 tab, PO, l tablet 11:38: Daily, # [place] 00 90 tab, 3 Refill(s) AMIODarone 2020-0 Yes 200 mg = 1 M emoria 200 mg oral 4-09 tab, PO, l tablet 11:38: Daily, # [place] 00 90 tab, 3 Refill(s) AMIODarone 2020-0 Yes 200 mg = 1 M emoria 200 mg oral 4-09 tab, PO, l tablet 11:38: Daily, # [place] 00 90 tab, 3 Refill(s) normal 0 [...] pantoprazol 2020-0 2020- No Metho di e 4-09 06-25 st (PROTONIX) 00:00: 00:00 [...] Descovy [place]-Tenofovi 1-21 200 mg-25 [facility] r AF 00:00: mg tablet (Descovy) 00 200-25 MG tablet Emtricitabi 2018-05 Yes Descovy [place] 1-21 200 mg-25 [facility] r AF 00:00: mg tablet (Descovy) [...] Immunizations Ordered Filled Immunization Date Status Comments [facility] e Immunization Name Name SARS-COV-2 [...] COVID-19 2020-07-23 Completed [facility] 00:00:00 [facility] PFIZER COVID-19 2020-07-23 Completed [facility] 00:00:00 [facility] PFIZER COVID-19 2020-07-23 Completed [facility] 00:00:00 [facility] PFIZER COVID-19 2020-07-23 Completed [facility]ACC[facility] 00:00:00 [facility] PFIZER COVID-19 2020-07-23 Completed [facility] 00:00:00 [facility] PFIZER COVID-19 2020-07-23 Completed [facility]ACC[facility] 00:00:00 [facility] PFIZER COVID-19 2020-07-23 Completed [facility] 00:00:00 [facility] PFIZER COVID-19 2020-07-23 Completed [facility] 00:00:00 [facility] PFIZER COVID-19 2020-07-23 Completed [facility] 00:00:00 [facility] PFIZER COVID-19 2020-07-23 Completed [facility] 00:00:00 [facility] PFIZER COVID-19 2020-07-23 Completed [facility] 00:00:00 [facility] P[facility] COVID-19 2020-07-23 Completed [facility] 00:00:00 [facility] PFI[facility] COVID-19 2020-07-23 Completed [facility] 00:00:00 [facility] PFI[facility] COVID-19 2020-07-23 Completed [facility] 00:00:00 [facility] P[facility] COVID-19 2020-07-23 Completed [facility] 00:00:00 [facility] P[facility] COVID-19 2020-07-23 Completed [facility] 00:00:00 [facility] P[facility] COVID-19 2020-07-23 Completed [facility] 00:00:00 [facility] P[facility] COVID-19 2020-07-23 Completed [facility] 00:00:00 [facility] PFI[facility] COVID-19 2020-07-23 Completed [facility] 00:00:00 [facility] PFI[facility] COVID-19 2020-07-23 Completed [facility] 00:00:00 [facility] P[facility] COVID-19 2020-07-23 Completed [facility] 00:00:00 [facility] P[facility] COVID-19 2020-07-23 Completed [facility] 00:00:00 [facility] P[facility] COVID-19 2020-07-23 Completed [facility] 00:00:00 [facility] PFI[facility] COVID-19 2020-07-23 Completed [facility] 00:00:00 [facility] PFI[facility] COVID-19 2020-07-23 Completed [facility] 00:00:00 [facility] P[facility] COVID-19 2020-07-23 Completed [facility] 00:00:00 [facility] PFI[facility] COVID-19 2020-07-23 Completed [facility] 00:00:00 [facility] P[facility] COVID-19 2020-07-23 Completed [facility] 00:00:00 [facility] P[facility] COVID-19 2020-07-23 Completed [facility] 00:00:00 [facility] P[facility] COVID-19 2020-07-23 Completed [facility] 00:00:00 [facility] COVID-19 2020-07-23 Completed [facility] 00[facility]00:00 [facility] P[facility] COVID-19 2020-07-23 Completed [facility]:00:00 [facility] PFIZER COVID-19 2020-07-23 Completed [facility] 00:00:00 [facility] PFIZER COVID-19 2020-07-23 Completed [facility] VACC[facility] 00:00:00 [facility] PFIZER COVID-19 2020-07-23 Completed [facility] VACC[facility] 00:00:00 [facility] SARS-COV-2 COVID-19 2020-07-23 Completed [facility] PFIZER VACCINE 00:00:00 [facility] SARS-COV-2 COVID-19 2020-07-23 Completed [facility] of PFIZER VACCINE 00:00:00 [facility] SARS-COV-2 COVID-19 2020-07-23 Completed [facility] of PFIZER VACCINE 00:00:00 [facility] SARS-COV-2 COVID-19 2020-07-23 Completed [facility] of PFIZER VACCINE 00:00:00 [facility] SARS-COV-2 COVID-19 2020-07-23 Completed [facility] of PFIZER VACCINE 00:00:00 [facility] SARS-COV-2 COVID-19 2020-07-23 Completed [facility] of PFIZER VACCINE 00:00:00 [facility] SARS-COV-2 COVID-19 2020-07-23 Completed [facility] of PFIZER VACCINE 00:00:00 [facility] SARS-COV-2 COVID-19 2020-07-23 Completed [facility] of PFIZER VACCINE 00:00:00 [facility] SARS-COV-2 COVID-19 2020-07-23 Completed [facility] of PFIZER VACCINE 00:00:00 [facility] SARS-COV-2 COVID-19 2020-07-23 Completed [facility] of PFIZER VACCINE 00:00:00 [facility] SARS-COV-2 COVID-19 2020-07-23 Completed [facility] of PFIZER VACCINE 00:00:00 [facility] SARS-COV-2 COVID-19 2020-07-23 Completed [facility] of PFIZER VACCINE 00:00:00 [facility] SARS-COV-2 COVID-19 2020-07-23 Completed [facility] of PFIZER VACCINE 00:00:00 [facility] SARS-COV-2 COVID-19 2020-07-23 Completed [facility] of PFIZER VACCINE 00:00:00 [facility] PFIZER COVID-19 2020-07-23 Completed [facility] 00:00:00 [facility] PFIZER COVID-19 2020-07-02 Completed [facility] VACC[facility] 00:00:00 [facility] PFIZER COVID-19 2020-07-02 Completed [facility] VACC[facility] 00:00:00 [facility] PFIZER COVID-19 2020-07-02 Completed [facility] VACC[facility] 00:00:00 [facility] PFIZER COVID-19 2020-07-02 Completed [facility] VACC[facility] 00:00:00 [facility] PFIZER COVID-19 2020-07-02 Completed [facility] VACC[facility] 00:00:00 [facility] PFIZER COVID-19 2020-07-02 Completed [facility] VACC[facility] 00:00:00 [facility] PFIZER COVID-19 2020-07-02 Completed [facility] VACC[facility] 00:00:00 [facility] PFIZER COVID-19 2020-07-02 Completed [facility] VACC[facility] 00:00:00 [facility] PFIZER COVID-19 2020-07-02 Completed [facility] VACC[facility] 00:00:00 [facility] PFIZER COVID-19 2020-07-02 Completed [facility] VACC[facility] 00:00:00 [facility] PFIZER COVID-19 2020-07-02 Completed [facility] VACC[facility] 00:00:00 [facility] PFIZER COVID-19 2020-07-02 Completed [facility] VACC[facility] 00:00:00 [facility] PFIZER COVID-19 2020-07-02 Completed [facility] VACC[facility] 00:00:00 [facility] PFIZER COVID-19 2020-07-02 Completed [facility] VACC[facility] 00:00:00 [facility] PFIZER COVID-19 2020-07-02 Completed [facility] VACC[facility] 00:00:00 [facility] PFIZER COVID-19 2020-07-02 Completed [facility]00 [facility] PFIZER COVID-19 2020-07-02 Completed [facility] VACC[facility] 00:00:00 [facility] PFIZER COVID-19 2020-07-02 Completed [facility] VACC[facility] 00:00:00 [facility] PFIZER COVID-19 2020-07-02 Completed [facility] VACC[facility] 00:00:00 [facility] PFIZER COVID-19 2020-07-02 Completed [facility] VACC[facility] 00:00:00 [facility] PFIZER COVID-19 2020-07-02 Completed [facility] VACC[facility] 00:00:00 [facility] PFIZER COVID-19 2020-07-02 Completed [facility] VACC[facility] 00:00:00 [facility] PFIZER COVID-19 2020-07-02 Completed [facility] VACC[facility] 00:00:00 [facility] PFIZER COVID-19 2020-07-02 Completed [facility] VACC[facility] 00:00:00 [facility] PFIZER COVID-19 2020-07-02 Completed [facility] VACC[facility] 00:00:00 [facility] PFIZER COVID-19 2020-07-02 Completed [facility] VACC[facility] 00:00:00 [facility] PFIZER COVID-19 2020-07-02 Completed [facility] VACC[facility] 00:00:00 [facility] PFIZER COVID-19 2020-07-02 Completed [facility] VACC[facility] 00:00:00 [facility] PFIZER COVID-19 2020-07-02 Completed [facility] VACC[facility] 00:00:00 [facility] PFIZER COVID-19 2020-07-02 Completed [facility] VACC[facility] 00:00:00 [facility] PFIZER COVID-19 2020-07-02 Completed [facility] VACC[facility] 00:00:00 [facility] PFIZER COVID-19 2020-07-02 Completed [facility] VACC[facility] 00:00:00 [facility] PFIZER COVID-19 2020-07-02 Completed [facility] VACC[facility] 00:00:00 [facility] PFIZER COVID-19 2020-07-02 Completed [facility] VACCIN[facility] 00:00:00 [facility] PFIZER COVID-19 2020-07-02 Completed [facility] VACC[facility] 00:00:00 [facility] SARS-COV-2 COVID-19 2020-07-02 Completed [facility] PFIZER VACCINE 00:00:00 [facility] SARS-COV-2 COVID-19 2020-07-02 Completed [facility] of PFIZER VACCINE 00:00:00 [facility] SARS-COV-2 COVID-19 2020-07-02 Completed [facility] of PFIZER VACCINE 00:00:00 [facility] SARS-COV-2 COVID-19 2020-07-02 Completed [facility] of PFIZER VACCINE 00:00:00 [facility] SARS-COV-2 COVID-19 2020-07-02 Completed [facility] of PFIZER VACCINE 00:00:00 [facility] SARS-COV-2 COVID-19 2020-07-02 Completed [facility] of PFIZER VACCINE 00:00:00 [facility] SARS-COV-2 COVID-19 2020-07-02 Completed [facility] of PFIZER VACCINE 00:00:00 [facility] SARS-COV-2 COVID-19 2020-07-02 Completed [facility] of PFIZER VACCINE 00:00:00 [facility] SARS-COV-2 COVID-19 2020-07-02 Completed [facility] of PFIZER VACCINE 00:00:00 [facility] SARS-COV-2 COVID-19 2020-07-02 Completed [facility] of PFIZER VACCINE 00:00:00 [facility] SARS-COV-2 COVID-19 2020-07-02 Completed [facility] of PFIZER VACCINE 00:00:00 [facility] SARS-COV-2 COVID-19 2020-07-02 Completed [facility] of PFIZER VACCINE 00:00:00 [facility] SARS-COV-2 COVID-19 2020-07-02 Completed [facility] of PFIZER VACCINE 00:00:00 [facility] SARS-COV-2 COVID-19 2020-07-02 Completed [facility] of PFIZER VACCINE 00:00:00 [facility] PFIZER COVID-19 2020-07-02 Completed [facility] 00:00:00 [facility] Influenza Virus 2017-03-08 Completed [facility] Vaccine 00:00:00 [facility] Influenza Virus 2017-03-08 Completed [facility] Vaccine 00:00:00 [facility] Influenza Virus 2017-03-08 Completed [facility] of Vaccine 00:00:00 [facility] Influenza Virus 2017-03-08 Completed [facility] of Vaccine 00:00:00 [facility] Influenza Virus 2017-03-08 Completed [facility] Vaccine 00:00:00 [facility] Influenza Virus 2017-03-08 Completed [facility] of Vaccine 00:00:00 [facility] Influenza Virus 2017-03-08 Completed [facility] Vaccine 00:00:00 [facility] Influenza Virus 2017-03-08 Completed [facility] of Vaccine 00:00:00 [facility] Influenza Virus 2017-03-08 Completed [facility] of Vaccine 00:00:00 [facility] Influenza Virus 2017-03-08 Completed [facility] of Vaccine 00:00:00 [facility] Influenza Virus 2017-03-08 Completed [facility] of Vaccine 00:00:00 [facility] Influenza Virus 2017-03-08 Completed [facility] Vaccine 00:00:00 [facility] Influenza Virus 2017-03-08 Completed [facility] of Vaccine 00:00:00 [facility] Influenza Virus 2017-03-08 Completed [facility] of Vaccine 00:00:00 [facility] Influenza Virus 2017-03-08 Completed [facility] Vaccine 00:00:00 [facility] Influenza Virus 2017-03-08 Completed [facility] Vaccine 00:00:00 [facility] Influenza Virus 2017-03-08 Completed [facility] Vaccine 00:00:00 [facility] Influenza Virus 2017-03-08 Completed [facility] of Vaccine 00:00:00 [facility] Influenza Virus 2014-01-30 Completed [facility] of Vaccine (3+ yrs) 00:00:00 [facility] Pneumococcal 13 2014-01-30 Completed Universit y of Conjugate, PCV13 00:00:00 [facility] dical (Prevnar 13) Branch Influenza Virus 2014-01-30 Completed [facility] Vaccine (3+ yrs) 00:00:00 [facility] Pneumococcal 13 2014-01-30 Completed [facility] y of Conjugate, PCV13 00:00:00 [facility] dical (Prevnar 13) Branch Influenza Virus 2014-01-30 Completed [facility] of Vaccine (3+ yrs) 00:00:00 [facility] Pneumococcal 13 2014-01-30 Completed [facility] of Conjugate, PCV13 00:00:00 [facility] dical (Prevnar 13) Branch Influenza Virus 2014-01-30 Completed [facility] of Vaccine (3+ yrs) 00:00:00 [facility] Pneumococcal 13 2014-01-30 Completed [facility] y of Conjugate, PCV13 00:00:00 [facility] dical (Prevnar 13) Branch Influenza Virus 2014-01-30 Completed [facility] of Vaccine (3+ yrs) 00:00:00 [facility] Pneumococcal 13 2014-01-30 Completed [facility] of Conjugate, PCV13 00:00:00 [facility] (Prevnar 13) Branch Influenza Virus 2014-01-30 Completed [facility] of Vaccine (3+ yrs) 00:00:00 [facility] Pneumococcal 13 2014-01-30 Completed [facility] of Conjugate, PCV13 00:00:00 [facility] dical (Prevnar 13) Branch Influenza Virus 2014-01-30 Completed [facility] Vaccine (3+ yrs) 00:00:00 [facility] Pneumococcal 13 2014-01-30 Completed [facility] y of Conjugate, PCV13 00:00:00 [facility] dical (Prevnar 13) Branch Influenza Virus 2014-01-30 Completed [facility] of Vaccine (3+ yrs) 00:00:00 [facility] Branch Pneumococcal 13 2014-01-30 Completed [facility] y of Conjugate, PCV13 00:00:00 [facility] dical (Prevnar 13) Branch Influenza Virus 2014-01-30 Completed [facility] y of Vaccine (3+ yrs) 00:00:00 [facility] Branch Pneumococcal 13 2014-01-30 Completed [facility] y of Conjugate, PCV13 00:00:00 [facility] dical (Prevnar 13) Branch Influenza Virus 2014-01-30 Completed [facility] of Vaccine (3+ yrs) 00:00:00 [facility] Branch Pneumococcal 13 2014-01-30 Completed [facility] of Conjugate, PCV13 00:00:00 [facility] d[facility] (Prevnar 13) Branch Influenza Virus 2014-01-30 Completed [facility] of Vaccine (3+ yrs) 00:00:00 [facility] Branch Pneumococcal 13 2014-01-30 Completed [facility] y of Conjugate, PCV13 00:00:00 [facility] dical (Prevnar 13) Branch Influenza Virus 2014-01-30 Completed [facility] y of Vaccine (3+ yrs) 00:00:00 [facility] Branch Pneumococcal 13 2014-01-30 Completed [facility] y of Conjugate, PCV13 00:00:00 [facility] dical (Prevnar 13) Branch Influenza Virus 2014-01-30 Completed [facility] y of Vaccine (3+ yrs) 00:00:00 [facility] Pneumococcal 13 2014-01-30 Completed [facility] of Conjugate, PCV13 00:00:00 [facility] (Prevnar 13) [facility] Influenza Virus 2014-01-30 Completed [facility] of Vaccine (3+ yrs) 00:00:00 [facility] Branch Pneumococcal 13 2014-01-30 Completed [facility] y of Conjugate, PCV13 00:00:00 [facility] dical (Prevnar 13) Branch Influenza Virus 2014-01-30 Completed [facility] of Vaccine (3+ yrs) 00:00:00 [facility] Branch Pneumococcal 13 2014-01-30 Completed [facility] y of Conjugate, PCV13 00:00:00 [facility] dical (Prevnar 13) Branch Influenza Virus 2014-01-30 Completed [facility] of Vaccine (3+ yrs) 00:00:00 [facility] Pneumococcal 13 2014-01-30 Completed [facility] y of Conjugate, PCV13 00:00:00 [facility] dical (Prevnar 13) Branch Influenza Virus 2014-01-30 Completed [facility] y of Vaccine (3+ yrs) 00:00:00 [facility] Branch Pneumococcal 13 2014-01-30 Completed [facility] y of Conjugate, PCV13 00:00:00 [facility] dical (Prevnar 13) Branch Influenza Virus 2014-01-30 Completed [facility] y of Vaccine (3+ yrs) 00:00:00 [facility] Branch Pneumococcal 13 2014-01-30 Completed [facility] y of Conjugate, PCV13 00:00:00 [facility] dical (Prevnar 13) Branch Pneumococcal 2012-02-16 Completed University o f Polysaccharide, 00:00:00 [facility] PPSV23 (PNEUMOVAX) Branch Influenza Virus 2012-02-16 Completed [facility] y of Vaccine 00:00:00 [facility] PPD (TB) 2012-02-16 Completed University of 00:00:00 [facility] Pneumococcal 2012-02-16 Completed University o f Polysaccharide, 00:00:00 [facility] ical PPSV23 (PNEUMOVAX) Branch Influenza Virus 2012-02-16 Completed Universit y of Vaccine 00:00:00 [facility] PPD (TB) 2012-02-16 Completed University of 00:00:00 [facility] Pneumococcal 2012-02-16 Completed University o f Polysaccharide, 00:00:00 [facility] ical PPSV23 (PNEUMOVAX) Branch Influenza Virus 2012-02-16 Completed [facility] y of Vaccine 00:00:00 [facility] PPD (TB) 2012-02-16 Completed [facility] of 00:00:00 [facility] Pneumococcal 2012-02-16 Completed [facility] o f Polysaccharide, 00:00:00 [place] [facility] PPSV23 (PNEUMOVAX) Branch Influenza Virus 2012-02-16 Completed [facility] y of Vaccine 00:00:00 [facility] PPD (TB) 2012-02-16 Completed University of 00:00:00 [facility] Pneumococcal 2012-02-16 Completed University o f Polysaccharide, 00:00:00 [facility] PPSV23 (PNEUMOVAX) Branch Influenza Virus 2012-02-16 Completed [facility] y of Vaccine 00:00:00 [facility] PPD (TB) 2012-02-16 Completed [facility] of 00:00:00 [facility] Pneumococcal 2012-02-16 Completed University o f Polysaccharide, 00:00:00 [facility] PPSV23 (PNEUMOVAX) Branch Influenza Virus 2012-02-16 Completed [facility] of Vaccine 00:00:00 [facility] PPD (TB) 2012-02-16 Completed [facility] of 00:00:00 [facility] Pneumococcal 2012-02-16 Completed [facility] o f Polysaccharide, 00:00:00 [facility] PPSV23 (PNEUMOVAX) Branch Influenza Virus 2012-02-16 Completed [facility] of Vaccine 00:00:00 [facility] PPD (TB) 2012-02-16 Completed University of 00:00:00 [facility] Pneumococcal 2012-02-16 Completed University o f Polysaccharide, 00:00:00 [facility] PPSV23 (PNEUMOVAX) Branch Influenza Virus 2012-02-16 Completed [facility] y of Vaccine 00:00:00 [facility] PPD (TB) 2012-02-16 Completed [facility] of 00:00:00 [facility] Pneumococcal 2012-02-16 Completed [facility] o f Polysaccharide, 00:00:00 [facility] PPSV23 (PNEUMOVAX) Branch Influenza Virus 2012-02-16 Completed [facility] of Vaccine 00:00:00 [facility] PPD (TB) 2012-02-16 Completed [facility] of 00:00:00 [facility] Pneumococcal 2012-02-16 Completed [facility] o f Polysaccharide, 00:00:00 [facility] PPSV23 (PNEUMOVAX) Branch Influenza Virus 2012-02-16 Completed [facility] of Vaccine 00:00:00 [facility] PPD (TB) 2012-02-16 Completed [facility] of 00:00:00 [facility] Pneumococcal 2012-02-16 Completed [facility] o f Polysaccharide, 00:00:00 [place] [facility] PPSV23 (PNEUMOVAX) Branch Influenza Virus 2012-02-16 Completed [facility] of Vaccine 00:00:00 [facility] PPD (TB) 2012-02-16 Completed [facility] of 00:00:00 [facility] Pneumococcal 2012-02-16 Completed [facility] o f Polysaccharide, 00:00:00 [facility] PPSV23 (PNEUMOVAX) Branch Influenza Virus 2012-02-16 Completed [facility] of Vaccine 00:00:00 [facility] PPD (TB) 2012-02-16 Completed [facility] of 00:00:00 [facility] Pneumococcal 2012-02-16 Completed [facility] o f Polysaccharide, 00:00:00 [facility] PPSV23 (PNEUMOVAX) Branch Influenza Virus 2012-02-16 Completed [facility] of Vaccine 00:00:00 [facility] PPD (TB) 2012-02-16 Completed [facility] of 00:00:00 [facility] Pneumococcal 2012-02-16 Completed [facility] o f Polysaccharide, 00:00:00 [facility] PPSV23 (PNEUMOVAX) Branch Influenza Virus 2012-02-16 Completed [facility] of Vaccine 00:00:00 [facility] PPD (TB) 2012-02-16 Completed [facility] of 00:00:00 [facility] Pneumococcal 2012-02-16 Completed [facility] o f Polysaccharide, 00:00:00 [facility] PPSV23 (PNEUMOVAX) Branch Influenza Virus 2012-02-16 Completed [facility] of Vaccine 00:00:00 [facility] PPD (TB) 2012-02-16 Completed [facility] of 00:00:00 [facility] Pneumococcal 2012-02-16 Completed [facility] o f Polysaccharide, 00:00:00 [facility] PPSV23 (PNEUMOVAX) Branch Influenza Virus 2012-02-16 Completed [facility] of Vaccine 00:00:00 [facility] PPD (TB) 2012-02-16 Completed [facility] of 00:00:00 [facility] Pneumococcal 2012-02-16 Completed [facility] o f Polysaccharide, 00:00:00 [facility] PPSV23 (PNEUMOVAX) Branch Influenza Virus 2012-02-16 Completed [facility] of Vaccine 00:00:00 [facility] PPD (TB) 2012-02-16 Completed [facility] of 00:00:00 [facility] Pneumococcal 2012-02-16 Completed University o f Polysaccharide, 00:00:[address] [facility] PPSV23 (PNEUMOVAX) Branch Influenza Virus 2012-02-16 Completed Universit y of Vaccine 00:00:00 [facility] PPD (TB) 2012-02-16 Completed University 00:00:00 [facility] Hep B, Adol [...] rsity of Dosage 00:00:00 [facility] Hep B, Adol or Pedi 2011-09-01 Completed Unive rsity of Dosage 00:00:00 [facility] Hep B, Adol or Pedi 2011-09-01 Completed Unive rsity of Dosage 00:00:00 [facility] Hep B, Adol or Pedi 2011-09-01 Completed Unive rsity of Dosage 00:00:00 [facility] Hep B, Adol or Pedi 2011-09-01 [...] rsity of Dosage 00:00:00 [facility] Hep B, Adol or Pedi 2011-03-17 Completed Unive rsity of Dosage 00:00:00 [facility] Hep B, Adol or Pedi 2011-03-17 Completed Unive rsity of Dosage 00:00:00 [facility] Influenza Virus 2011-02-10 Completed [facility] of Vaccine 00:00:00 [facility] Hep B, Adol or Pedi 2011-02-10 Completed Unive rsity of Dosage 00:00:00 [facility] Influenza Virus 2011-02-10 Completed [facility] y of Vaccine 00:00:00 [facility] Hep B, Adol or Pedi 2011-02-10 [...] y of Vaccine 00:00:00 [facility] Hep B, Adol or Pedi 2011-02-10 Completed Unive rsity of Dosage 00:00:00 [facility] Influenza Virus 2011-02-10 Completed [facility] of Vaccine 00:00:00 [facility] Hep B, Adol or Pedi 2011-02-10 Completed Unive rsity of Dosage 00:00:00 [facility] Influenza Virus 2011-02-10 Completed [facility] of Vaccine 00:00:00 [facility] Hep B, Adol or Pedi 2011-02-10 Completed Unive rsity of Dosage 00:00:00 [facility] Influenza Virus 2011-02-10 Completed [facility] y of Vaccine 00:00:00 [facility] Hep B, Adol or Pedi 2011-02-10 [...] University of VACCINE 00:00:00 [facility] PPD (TB) 2010-11-18 Completed University of 00:00:00 [facility] TDAP (ADACEL) 2010-11-18 Completed University of VACCINE 00:00:00 [facility] PPD (TB) 2010-11-18 Completed [facility] of 00:00:00 [facility] TDAP (ADACEL) 2010-11-18 Completed University of VACCINE 00:00:00 [facility] PPD (TB) 2010-11-18 Completed [facility] of 00:00:00 [facility] TDAP (ADACEL) 2010-11-18 Completed University of VACCINE 00:00:00 [facility] PPD (TB) 2010-11-18 Completed [facility] of 00:00:00 [facility] TDAP (ADACEL) 2010-11-18 Completed University of VACCINE 00:00:00 [facility] PPD (TB) 2010-11-18 Completed [facility] of 00:00:00 [facility] TDAP (ADACEL) 2010-11-18 Completed University of VACCINE 00:00:00 [facility] PPD (TB) 2010-11-18 Completed [facility] of 00:00:00 [facility] TDAP (ADACEL) 2010-11-18 Completed University of VACCINE 00:00:00 [facility] PPD (TB) 2010-11-18 Completed [facility] of 00:00:00 [facility] TDAP (ADACEL) 2010-11-18 Completed University of VACCINE 00:00:00 [facility] PPD (TB) 2010-11-18 Completed [facility] of 00:00:00 [facility] TDAP (ADACEL) 2010-11-18 Completed University of VACCINE 00:00:00 [facility] PPD (TB) 2010-11-18 Completed [facility] of 00:00:00 [facility] TDAP (ADACEL) 2010-11-18 Completed University of VACCINE 00:00:00 [facility] PPD (TB) 2010-11-18 Completed University of 00:00:00 [facility] TDAP (ADACEL) 2010-11-18 Completed University of VACCINE 00:00:00 [facility] PPD (TB) 2010-11-18 Completed [facility] of 00:00:00 [facility] TDAP (ADACEL) 2010-11-18 Completed University of VACCINE 00:00:00 [facility] PPD (TB) 2010-11-18 Completed [facility] of 00:00:00 [facility] TDAP (ADACEL) 2010-11-18 Completed University of VACCINE 00:00:00 [facility] PPD (TB) 2010-11-18 Completed [facility] of 00:00:00 [facility] TDAP (ADACEL) 2010-11-18 Completed University of VACCINE 00:00:00 [facility] PPD (TB) 2010-11-18 Completed University of 00:00:00 [facility] TDAP (ADACEL) 2010-11-18 Completed University of VACCINE 00:00:00 [facility] PPD (TB) 2010-11-18 Completed [facility] of 00:00:00 [facility] TDAP (ADACEL) 2010-11-18 Completed University of VACCINE 00:00:00 [facility] PPD (TB) 2010-11-18 Completed [facility] of 00:00:00 [facility] TDAP (ADACEL) 2010-11-18 Completed University of VACCINE 00:00:00 [facility] PPD (TB) 2010-11-18 Completed [facility] of 00:00:00 [facility] TDAP (ADACEL) 2010-11-18 Completed University of VACCINE 00:00:00 [facility] HEPATITIS A 2004-03-02 Completed [facility] of 00:00:00 [facility] HEPATITIS A 2004-03-02 Completed [facility] of 00:00:00 [facility] HEPATITIS A 2004-03-02 Completed [facility] of 00:00:00 [facility] HEPATITIS A 2004-03-02 Completed [facility] of 00:00:00 [facility] HEPATITIS A 2004-03-02 Completed [facility] of 00:00:00 [facility] HEPATITIS A 2004-03-02 Completed [facility] of 00:00:00 [facility] HEPATITIS A 2004-03-02 Completed [facility] of 00:00:00 [facility] HEPATITIS A 2004-03-02 Completed [facility] of 00:00:00 [facility] HEPATITIS A 2004-03-02 Completed [facility] of 00:00:00 [facility] HEPATITIS A 2004-03-02 Completed [facility] 00:00:00 [facility] HEPATITIS A 2004-03-02 Completed [facility] 00:00:00 [facility] HEPATITIS A 2004-03-02 Completed [facility] 00:00:00 [facility] HEPATITIS A 2004-03-02 Completed [facility] of 00:00:00 [facility] HEPATITIS A 2004-03-02 Completed [facility] 00:00:00 [facility] HEPATITIS A 2004-03-02 Completed [facility] 00:00:00 [facility] HEPATITIS A 2004-03-02 Completed [facility] 00:00:00 [facility] HEPATITIS A 2004-03-02 Completed [facility] 00:00:00 [facility] HEPATITIS A 2004-03-02 Completed [facility] 00:00:00 [facility] HEPATITIS A 2003-08-01 Completed [facility] 00:00:00 [facility] HEPATITIS A 2003-08-01 Completed [facility] 00:00:00 [facility] HEPATITIS A 2003-08-01 Completed [facility] 00:00:00 [facility] HEPATITIS A 2003-08-01 Completed [facility] 00:00:00 [facility] HEPATITIS A 2003-08-01 Completed [facility] 00:00:00 [facility] HEPATITIS A 2003-08-01 Completed [facility] 00:00:00 [facility] HEPATITIS A 2003-08-01 Completed [facility] 00:00:00 [facility] HEPATITIS A 2003-08-01 Completed [facility] 00:00:00 [facility] HEPATITIS A 2003-08-01 Completed [facility] 00:00:00 [facility] HEPATITIS A 2003-08-01 Completed [facility] 00:00:00 [facility] HEPATITIS A 2003-08-01 Completed [facility] of 00:00:00 [facility] HEPATITIS A 2003-08-01 Completed University of [...] (TB) 2001-10-04 Completed [facility] of 00:00:00 [facility] Pneumococcal 2001-10-04 Completed University o f Polysaccharide, 00:00:00 [place] [facility] PPSV23 (PNEUMOVAX) Branch PPD (TB) 2001-10-04 Completed [facility] 00:00:00 [facility] Pneumococcal 2001-10-04 Completed University o f Polysaccharide, 00:00:00 [place] [facility] PPSV23 (PNEUMOVAX) Branch PPD (TB) 2001-10-04 Completed [facility] 00:00:00 [facility] Pneumococcal 2001-10-04 Completed University o f Polysaccharide, 00:00:00 [place] [facility] PPSV23 (PNEUMOVAX) Branch PPD (TB) 2001-10-04 Completed [facility] 00:00:00 [facility] Pneumococcal 2001-10-04 Completed University o f Polysaccharide, 00:00:00 [place] [facility] PPSV23 (PNEUMOVAX) Branch PPD (TB) 2001-10-04 Completed [facility] 00:00:00 [facility] Pneumococcal 2001-10-04 Completed University o f Polysaccharide, 00:00:00 [place] [facility] PPSV23 (PNEUMOVAX) Branch PPD (TB) 2001-10-04 Completed [facility] 00:00:00 [facility] Pneumococcal 2001-10-04 Completed University o f Polysaccharide, 00:00:00 [place] [facility] PPSV23 (PNEUMOVAX) Branch PPD (TB) 2001-10-04 Completed [facility] 00:00:00 [facility] Pneumococcal 2001-10-04 Completed University o f Polysaccharide, 00:00:00 [place] [facility] PPSV23 (PNEUMOVAX) Branch PPD (TB) 2001-10-04 Completed [facility] 00:00:00 [facility] Pneumococcal 2001-10-04 Completed University o f Polysaccharide, 00:00:00 [place] [facility] PPSV23 (PNEUMOVAX) Branch PPD (TB) 2001-10-04 Completed [facility] 00:00:00 [facility] Pneumococcal 2001-10-04 Completed University o f Polysaccharide, 00:00:00 [place] [facility] PPSV23 (PNEUMOVAX) Branch PPD (TB) 2001-10-04 Completed [facility] 00:00:00 [facility] Pneumococcal 2001-10-04 Completed University o f Polysaccharide, 00:00:00 [place] [facility] PPSV23 (PNEUMOVAX) Branch PPD (TB) 2001-10-04 Completed [facility] 00:00:00 [facility] Pneumococcal 2001-10-04 Completed University o f Polysaccharide, 00:00:00 [place] [facility] PPSV23 (PNEUMOVAX) Branch PPD (TB) 2001-10-04 Completed [facility] 00:00:00 [facility] Pneumococcal 2001-10-04 Completed University o f Polysaccharide, 00:00:00 [place] [facility] PPSV23 (PNEUMOVAX) Branch PPD (TB) 2001-10-04 Completed [facility] 00:00:00 [facility] Pneumococcal 2001-10-04 Completed University o f Polysaccharide, 00:00:00 [place] [facility] PPSV23 (PNEUMOVAX) Branch PPD (TB) 2001-10-04 Completed [facility] 00:00:00 [facility] Pneumococcal 2001-10-04 Completed University o f Polysaccharide, 00:00:00 [place] [facility] PPSV23 (PNEUMOVAX) Branch PPD (TB) 2001-10-04 Completed [facility] 00:00:00 [facility] Pneumococcal 2001-10-04 Completed University o f Polysaccharide, 00:00:00 [place] [facility] PPSV23 (PNEUMOVAX) Branch PPD (TB) 2001-10-04 Completed [facility] 00:00:00 [facility] Pneumococcal 2001-10-04 Completed University o f Polysaccharide, 00:00:00 [place] [facility] PPSV23 (PNEUMOVAX) Branch PPD (TB) 2001-10-04 Completed [facility] 00:00:00 [facility] Pneumococcal 2001-10-04 Completed University o f Polysaccharide, 00:00:00 [place] [facility] PPSV23 (PNEUMOVAX) Branch PPD (TB) 2001-10-04 Completed [facility] 00:00:00 [facility] Vital Signs Vital Name Observation Time Observation Value Comments Source Systolic blood 2022-05-10 22:00:00 159 mm[Hg] Univer sity of pressure [facility] Diastolic blood 2022-05-10 22:00:00 87 mm[Hg] Unive rsity of pressure [facility] Heart rate 2022-05-10 22:00:00 56 /min [facility] Body temperature 2022-05-10 22:00:00 36.61 Amina [facility] Respiratory rate 2022-05-10 22:00:00 17 /min [facility] Oxygen saturation in 2022-05-10 22:00:00 98 /min [facility] Arterial blood by [facility] Pulse oximetry Branch Body weight 2022-05-10 16:29:00 78.926 kg [facility] BMI 2022-05-10 16:29:00 29.87 kg/m2 [facility] [place] [facility] Systolic blood 2022-05-08 22:30:00 168 mm[Hg] Univer sity of pressure [facility] Diastolic blood 2022-05-08 22:30:00 85 mm[Hg] Unive rsity of pressure [place] [facility] Heart rate 2022-05-08 22:30:00 68 /min [facility] [place] [facility] Oxygen saturation in 2022-05-08 22:30:00 100 /min University of Arterial blood by [place] [employer] [facility] Pulse oximetry Branch Body temperature 2022-05-08 22:22:00 35.89 Amina [facility] ers[facility] [place] [facility] Respiratory rate 2022-05-08 22:22:00 14 /min Univ ersity [facility] [place] [facility] Body weight 2022-05-08 22:22:00 78.926 kg [facility] [place] [facility] BMI 2022-05-08 22:22:00 29.87 kg/m2 [facility] [place] [facility] Systolic blood 2022-05-07 00:00:00 149 mm[Hg] Univer sity of pressure [facility] Diastolic blood 2022-05-07 00:00:00 132 mm[Hg] Unive rsity of pressure [facility] Heart rate 2022-05-07 00:00:00 59 /min [facility] [place] [facility] Respiratory rate 2022-05-07 00:00:00 14 /min Univ ersity of [facility] [place] [facility] Oxygen saturation in 2022-05-07 00:00:00 99 /min [facility] of Arterial blood by [place] [employer] [facility] Pulse oximetry Branch Body temperature 2022-05-06 20:12:00 36.5 Amina [facility] [place] [facility] Body height 2022-05-06 20:12:00 162.6 cm [facility] [place] [facility] Body weight 2022-05-06 20:12:00 78.926 kg [facility] [place] [facility] BMI 2022-05-06 20:12:00 29.87 kg/m2 [facility] [place] [facility] Systolic blood 2022-04-22 19:50:00 156 mm[Hg] Univer sity of pressure [facility] Diastolic blood 2022-04-22 19:50:00 89 mm[Hg] Unive rsity of pressure [facility] Heart rate 2022-04-22 19:50:00 69 /min [facility] [place] [facility] Body temperature 2022-04-22 19:50:00 36.67 Amina [facility] [place] [facility] Respiratory rate 2022-04-22 19:50:00 17 /min [facility] [place] [facility] Body height 2022-04-22 19:50:00 162.6 cm [facility] [place] [facility] Body weight 2022-04-22 19:50:00 80.74 kg [facility] [place] [facility] BMI 2022-04-22 19:50:00 30.55 kg/m2 [facility] [place] [facility] Oxygen saturation in 2022-04-22 19:50:00 96 /min University of Arterial blood by [employer] porfirio Pulse oximetry Branch Systolic blood 2022-03-05 15:23:00 167 mm[Hg] Univer sity of pressure [facility] Diastolic blood 2022-03-05 15:23:00 105 mm[Hg] Unive rsity of pressure [facility] Heart rate 2022-03-05 15:23:00 49 /min [facility] [place] [facility] Body temperature 2022-03-05 15:18:00 36.67 Amina [facility] [place] [facility] Respiratory rate 2022-03-05 15:18:00 18 /min Univ [facility] [place] [facility] Body height 2022-03-05 15:18:00 162.6 cm [facility] [place] [facility] Body weight 2022-03-05 15:18:00 74.707 kg [facility] [place] [facility] BMI 2022-03-05 15:18:00 28.27 kg/m2 [facility] [place] [facility] Systolic blood 2022-02-16 21:41:00 169 mm[Hg] Univer sity of pressure [facility] Diastolic blood 2022-02-16 21:41:00 86 mm[Hg] Unive rsity of pressure [facility] Heart rate 2022-02-16 21:41:00 51 /min [facility] [place] [facility] Body temperature 2022-02-16 21:41:00 36.56 Amina [facility] [place] [facility] Respiratory rate 2022-02-16 21:41:00 17 /min [facility] [place] [facility] Oxygen saturation in 2022-02-16 21:41:00 98 /min University of Arterial blood by [facility] Pulse oximetry Branch Body height 2022-02-11 16:02:00 162.6 cm Universi ty of [facility] Body weight 2022-02-11 16:02:00 79.379 kg Universi ty of [facility] BMI 2022-02-11 16:02:00 30.04 kg/m2 Universi ty [facility] Systolic blood 2021-11-20 13:47:00 165 mm[Hg] Univer sity of pressure [facility] Diastolic blood 2021-11-20 13:47:00 83 mm[Hg] Unive rsity of [facility] Heart rate 2021-11-20 13:47:00 58 /min Universi ty [facility] Body temperature 2021-11-20 13:42:00 36.39 [facility]a [facility] 2021-11-20 13:42:00 16 /min [facility] Body height 2021-11-20 13:42:00 162.6 cm Universi ty [facility] Body weight 2021-11-20 13:42:00 84.369 kg Universi ty [facility] BMI 2021-11-20 13:42:00 31.93 kg/m2 Universi ty [facility] Systolic blood 2021-07-14 15:18:00 [...] 15:23:00 167 mm[Hg] Univer sity of pressure [facility] Diastolic blood 2022-03-05 15:23:00 105 mm[Hg] Unive rsity of [facility] Heart rate 2022-03-05 15:23:00 49 /min Universi ty [facility] Body temperature 2022-03-05 15:18:00 36.67 Amina [facility] Respiratory rate 2022-03-05 15:18:00 18 /min [facility] Body height 2022-03-05 15:18:00 162.6 cm [facility] Body weight 2022-03-05 15:18:00 74.707 kg [facility] BMI 2022-03-05 15:18:00 28.27 kg/m2 [facility] Oxygen saturation in 2022-02-16 21:41:00 98 /min [place] [facility] Arterial blood by [facility] Pulse oximetry Branch Systolic blood 2020-12-08 15:48:00 125 mm[Hg] [facility] pressure Diastolic blood 2020-12-08 15:48:00 76 mm[Hg] [facility] pressure Heart rate 2020-12-08 15:48:00 64 /min [facility] Body temperature 2020-12-08 15:48:00 36.61 Amina [facility] Respiratory rate 2020-12-08 15:48:00 17 /min [facility] Body height 2020-12-08 15:48:00 162.6 cm [facility] Body weight 2020-12-08 15:48:00 98.884 kg [facility] BMI 2020-12-08 15:48:00 37.42 kg/m2 [facility] Oxygen saturation in 2020-12-08 15:48:00 97 /min [facility] Arterial blood by Pulse oximetry Respitory Rate 2020-08-30 13:00:00 Memori al Marty Systolic (mm Hg) 2020-08-30 13:00:00 Caesar rial [place] Diastolic (mm Hg) 2020-08-30 13:00:00 Mem orial [place] Systolic (mm Hg) 2020-08-30 11:00:00 Caesar rial [place] Diastolic (mm Hg) 2020-08-30 11:00:00 Mem orial [place] Temperature Oral (F) 2020-08-30 11:00:00 98.4 F [facility] Respitory Rate 2020-08-30 11:00:00 Memori al [facility] Respitory Rate 2020-08-30 10:00:00 Memori al [place] Systolic (mm Hg) 2020-08-30 10:00:00 Caesar riamabel [place] Diastolic (mm Hg) 2020-08-30 10:00:00 Mem orial [place] Temperature Oral (F) 2020-08-30 00:00:00 96.9 F [facility] Temperature Oral (F) 2020-08-29 11:26:00 97.6 F [facility] Marty Height 2020-08-29 10:30:00 162.56 cm [facility] Weight 2020-08-29 10:30:00 [facility] BMI Calculated 2020-08-29 10:30:00 Katieori al [place] Procedures Procedure Date / Time Performing Clinician Source Performed URINALYSIS 2022-05-10 19:36:00 Home [facility] TROPONIN I 2022-05-10 18:34:00 Home [facility] COMP. METABOLIC PANEL 2022-05-10 18:34:00 Home Matthews [facility] ([id number]) [facility] CBC WITH DIFF 2022-05-10 18:34:00 Home [facility] XR CHEST 2 VW 2022-05-10 17:24:58 Home [facility] CONSENT/REFUSAL FOR 2022-05-10 16:26:23 Doctor Unassigned, [facility] DIAGNOSIS AND TREATMENT [place] [facility] CONSENT/REFUSAL FOR 2022-05-10 16:26:09 Doctor Unassigned, [facility] DIAGNOSIS AND TREATMENT [place] [facility] URINALYSIS 2022-05-08 22:43:00 Theresa [facility] XR CHEST 2 VW 2022-05-06 22:56:53 Anette Olea [facility] COMP. METABOLIC PANEL 2022-05-06 22:14:00 Anette Olea [facility] ([id number]) [facility] CBC WITH DIFF 2022-05-06 22:14:00 Anette Olea [facility] COVID-19 (ID NOW RAPID 2022-05-06 22:14:00 Anette Olea [facility] TESTING) [facility] [place] BASIC METABOLIC PANEL (NA, 2022-04-22 21:23:00 Paulette Gray [facility] K, CL, CO2, GLUCOSE, BUN, Medica l Branch CREATININE, [place]) CBC WITH DIFF 2022-04-22 21:23:00 Paulette Gray [facility] CONSENT/REFUSAL FOR 2022-04-22 19:45:46 Doctor Unassigned, [facility] DIAGNOSIS AND TREATMENT [place] [facility] SARS-COV-2 COVID-19 2022-03-05 16:09:27 [facility] DIMITRIS-SUCROSE VACCINE [address] [place] [address] YRS+, BIVALENT 0.3ML, IM, (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) FLU 2022-03-05 16:09:27 [facility] VACC(),65+YR,0.5 Medica l Branch ML,IM,ADJUVANTED,QUAD(FLUA D) FLU 2022-03-05 16:09:27 [facility] VACC(),65+YR,0.5 Medica l Branch ML,IM,ADJUVANTED,QUAD(FLUA D) SARS-COV-2 COVID-19 2022-03-05 16:09:27 [facility] DIMITRIS-SUCROSE VACCINE [address] [place] [address] YRS+, BIVALENT 0.3ML, IM, (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) MAGNESIUM 2022-02-15 09:41:00 Sofia Garcia [facility] BASIC METABOLIC PANEL (NA, 2022-02-15 09:41:00 Sofia Garcia [facility] K, CL, CO2, GLUCOSE, BUN, Medica l Branch CREATININE, [place]) CBC WITH DIFF 2022-02-15 09:41:00 Radha Sofia [facility] N-TERMINAL PRO-BNP 2022-02-15 09:41:00 Sofia [facility] CBC WITH DIFF 2022-02-15 09:41:00 Sofia Garcia [facility] BASIC METABOLIC PANEL (NA, 2022-02-15 09:41:00 Sofia Garcia [facility] K, CL, CO2, GLUCOSE, BUN, Medica l Branch CREATININE, CA) MAGNESIUM 2022-02-15 09:41:00 Radha Sof[facility] N-TERMINAL PRO-BNP 2022-02-15 09:41:00 Sofia Garcia [facility] BASIC METABOLIC PANEL (NA, 2022-02-13 09:40:00 Radha [facility] K, CL, CO2, GLUCOSE, BUN, Medica l Branch CREATININE, CA) CBC WITH DIFF 2022-02-13 09:40:[address] [facility] BASIC METABOLIC PANEL (NA, 2022-02-13 09:40:00 Radha [facility] K, CL, CO2, GLUCOSE, BUN, Medica l Branch CREATININE, [place]) CBC WITH DIFF 2022-02-13 09:40:[address] [facility] TROPONIN I 2022-02-11 23:41:[address] [facility] N-TERMINAL PRO-BNP 2022-02-11 23:41:00 Sofia Garcia [facility] TROPONIN I 2022-02-11 23:41:[address] [facility] N-TERMINAL PRO-BNP 2022-02-11 23:41:00 Sofia Garcia [facility] HB ECG ROUTINE & RHYTHM 2022-02-11 22:15:[address] [facility] TRANSTHORACIC ECHO (TTE) 2022-02-11 21:26:50 [facility] 2022-02-11 21:26:50 [facility] 2022-02-11 07:45:43 Reilly Means [facility] CT ABDOMEN PELVIS W 2022-02-11 07:45:43 Reilly Means [facility] RAPID INFLUENZA A/B 2022-02-11 06:54:00 Reilly eMans [facility] RAPID INFLUENZA A/B 2022-02-11 06:54:00 Reilly Means [facility] URINALYSIS 2022-02-11 06:45:00 Reilly Means [facility] URINE CULTURE 2022-02-11 06:45:00 Reilly Means [facility] URINALYSIS 2022-02-11 06:45:00 Reilly Means [facility] URINE CULTURE 2022-02-11 06:45:00 Reilly Means [facility] HB ECG ROUTINE & RHYTHM 2022-02-11 05:22:08 Reilly Means [facility] HB ECG ROUTINE & RHYTHM 2022-02-11 05:22:08 Reilly Means [facility] BLOOD CULTURE SCREEN 2022-02-11 04:58:00 Reilly Means [facility] TROPONIN I 2022-02-11 04:58:00 Reilly Means [facility] COMP. METABOLIC PANEL 2022-02-11 04:58:00 Reilly Means [facility] ([id number]) Medical Branch CBC WITH DIFF 2022-02-11 04:58:00 Reilly Means [facility] PROTHROMBIN TIME / INR 2022-02-11 04:58:00 Reilly Means [facility] ACTIVATED PARTIAL THRMPLAS 2022-02-11 04:58:00 Reilly Means [facility] N-TERMINAL PRO-BNP 2022-02-11 04:58:00 Reilly Means [facility] LACTIC ACID WHOLE BLOOD 2022-02-11 04:58:00 Reilly Means [facility] COVID-19 (ID NOW RAPID 2022-02-11 04:58:00 Reilly Means [facility] TESTING) Medical Branch LAB ONLY COVID 2022-02-11 04:58:00 Reilly Means [facility] CBC WITH DIFF 2022-02-11 04:58:00 Reilly Means [facility] ACTIVATED PARTIAL THRMPLAS 2022-02-11 04:58:00 Reilly Means [facility] PROTHROMBIN TIME / INR 2022-02-11 04:58:00 Reilly Means [facility] COVID-19 (ID NOW RAPID 2022-02-11 04:58:00 Reilly Means [facility] TESTING) [facility] [place] COMP. METABOLIC PANEL 2022-02-11 04:58:00 Reilly Means [facility] ([id number]) [facility] [place] TROPONIN I 2022-02-11 04:58:00 Miguelangel Reilly [facility] N-TERMINAL PRO-BNP 2022-02-11 04:58:00 Reilly Means [facility] BLOOD CULTURE SCREEN 2022-02-11 04:58:00 Reilly Means [facility] LACTIC ACID WHOLE BLOOD 2022-02-11 04:58:00 Reilly Means [facility] LAB ONLY COVID 2022-02-11 04:58:00 Reilly Means [facility] INTERPRETATION [facility] XR CHEST 1 VW 2022-02-11 04:27:42 Miguelangel Reilly [facility] XR CHEST 1 2022-02-11 04:27:42 Miguelangel Reilly [facility] HOSPITAL ADMISSION 2022-02-10 05:01:00 Doctor Unassigned, [facility] [place] [place] HOSPITAL ADMISSION 2022-02-10 05:01:00 Doctor Unassigned, [facility] Name [facility] [place] ECG 12-LEAD 2021-07-14 15:14:00 Elan Lira [facility] [id number] 2021-06-17 00:00:00 RASSA [facility] GASTROINTESTINAL PANEL 2020-12-08 22:21:00 Eliseo Arce [facility] XR ABDOMEN 1 2020-12-08 18:06:32 Eliseo Arce spital OR [place] < 1 HOUR 2020-09-05 22:39:00 Eliseo Arce spital SURGICAL PATHOLOGY REQUEST 2020-09-05 21:54:00 Eliseo Arce [facility] XR CHEST 1 PORTABLE 2020-09-05 19:55:00 Eliseo Arce [facility] DISCHARGE PATIENT 2020-09-05 17:27:55 Lucas Harris [facility] [place] AN ELECTIVE 2020-09-05 16:47:[address] [facility] ENDOTRACHEAL AIRWAY EGD, INTRAOPERATIVE 2020-09-05 16:27:00 [facility] 2020-09-05 15:04:00 Sarai Maharaj [facility] TIME (PTT) M. PROTHROMBIN TIME WITH INR 2020-09-05 15:04:00 Mindy Maharaj [facility] M. Plan of Care Planned Activity Planned Date Details Comments Source Future Scheduled 2022-06-11 SHINGLES VACCINES (1 Met [facility] Test 16:10:12 of 2) [code = SHINGLES VACCINES (1 of 2)] Future Scheduled 2022-06-11 BREAST CANCER [facility] Test 16:10:12 SCREENING [code = BREAST CANCER SCREENING] Future Scheduled 2022-06-11 COLONOSCOPY SCREENING [facility] Test 16:10:12 [code = COLONOSCOPY SCREENING] Future Scheduled 2022-06-11 HEPATITIS B VACCINES Met [facility] Test 16:10:12 (1 of 3 - Risk 3-dose series) [code = HEPATITIS B VACCINES (1 of 3 - Risk 3-dose series)] Future Scheduled 2022-06-11 COVID-19 VACCINE (3 - [facility] Test 16:10:12 Booster for Pfizer series) [code = COVID-19 VACCINE (3 - Booster for Pfizer series)] Future Scheduled 2022-06-11 65+ PNEUMOCOCCAL [facility] Test 16:10:12 VACCINE (4 - PPSV23 if available, else PCV20) [code = 65+ PNEUMOCOCCAL VACCINE (4 - PPSV23 if available, else PCV20)] Future Scheduled 2022-06-11 INFLUENZA VACCINE Method [facility] Test 16:10:12 [code = INFLUENZA VACCINE] Future Scheduled 2022-06-11 SHINGLES VACCINES (1 Met [facility] Test 16:10:12 of 2) [code = SHINGLES VACCINES (1 of 2)] Future Scheduled 2022-06-11 BREAST CANCER [facility] Test 16:10:12 SCREENING [code = BREAST CANCER SCREENING] Future Scheduled 2022-06-11 COLONOSCOPY SCREENING [facility] Test 16:10:12 [code = COLONOSCOPY SCREENING] Future Scheduled 2022-06-11 HEPATITIS B VACCINES Met [facility] Test 16:10:12 (1 of 3 - Risk 3-dose series) [code = HEPATITIS B VACCINES (1 of 3 - Risk 3-dose series)] Future Scheduled 2022-06-11 COVID-19 VACCINE (3 - [facility] Test 16:10:12 Booster for Pfizer series) [code = COVID-19 VACCINE (3 - Booster for Pfizer series)] Future Scheduled 2022-06-11 65+ [facility]12 VACCINE (4 - PPSV23 if available, else PCV20) [code = 65+ PNEUMOCOCCAL VACCINE (4 - PPSV23 if available, else PCV20)] Future Scheduled 2022-06-11 INFLUENZA VACCINE Method [facility] Test 16:10:12 [code = INFLUENZA VACCINE] Future Scheduled 2022-06-11 SHINGLES VACCINES (1 Met [facility] Test 16:10:12 of 2) [code = SHINGLES VACCINES (1 of 2)] Future Scheduled 2022-06-11 BREAST CANCER [facility] Test 16:10:12 SCREENING [code = BREAST CANCER SCREENING] Future Scheduled 2022-06-11 COLONOSCOPY SCREENING [facility] Test 16:10:12 [code = COLONOSCOPY SCREENING] Future Scheduled 2022-06-11 HEPATITIS B VACCINES Met [facility] Test 16:10:12 (1 of 3 - Risk 3-dose series) [code = HEPATITIS B VACCINES (1 of 3 - Risk 3-dose series)] Future Scheduled 2022-06-11 COVID-19 VACCINE (3 - [facility] Test 16:10:12 Booster for Pfizer series) [code = COVID-19 VACCINE (3 - Booster for Pfizer series)] Future Scheduled 2022-06-11 65+ [facility] 16:10:12 VACCINE (4 - PPSV23 if available, else PCV20) [code = 65+ PNEUMOCOCCAL VACCINE (4 - PPSV23 if available, else PCV20)] Future Scheduled 2022-06-11 INFLUENZA VACCINE Method [facility] Test 16:10:12 [code = INFLUENZA VACCINE] Future Scheduled 2022-06-11 SHINGLES VACCINES (1 Met [facility] Test 16:10:12 of 2) [code = SHINGLES VACCINES (1 of 2)] Future Scheduled 2022-06-11 BREAST CANCER [facility] Test 16:10:12 SCREENING [code = BREAST CANCER SCREENING] Future Scheduled 2022-06-11 COLONOSCOPY SCREENING [facility] Test 16:10:12 [code = COLONOSCOPY SCREENING] Future Scheduled 2022-06-11 HEPATITIS B VACCINES Met [facility] Test 16:10:12 (1 of 3 - Risk 3-dose series) [code = HEPATITIS B VACCINES (1 of 3 - Risk 3-dose series)] Future Scheduled 2022-06-11 COVID-19 VACCINE (3 - [facility] Test 16:10:12 Booster for Pfizer series) [code = COVID-19 VACCINE (3 - Booster for Pfizer series)] Future Scheduled 2022-06-11 65+ [facility]OCOCCAL [facility] Test 16:10:12 VACCINE (4 - PPSV23 if available, else PCV20) [code = 65+ PNEUMOCOCCAL VACCINE (4 - PPSV23 if available, else PCV20)] Future Scheduled 2022-06-11 INFLUENZA VACCINE Method [facility] Test 16:10:12 [code = INFLUENZA VACCINE] Future Scheduled 2022-06-11 SHINGLES VACCINES (1 Met [facility] Test 16:10:12 of 2) [code = SHINGLES VACCINES (1 of 2)] Future Scheduled 2022-06-11 BREAST CANCER [facility] Test 16:10:12 SCREENING [code = BREAST CANCER SCREENING] Future Scheduled 2022-06-11 COLONOSCOPY SCREENING [facility] Test 16:10:12 [code = COLONOSCOPY SCREENING] Future Scheduled 2022-06-11 HEPATITIS B VACCINES Met [facility] Test 16:10:12 (1 of 3 - Risk 3-dose series) [code = HEPATITIS B VACCINES (1 of 3 - Risk 3-dose series)] Future Scheduled 2022-06-11 COVID-19 VACCINE (3 - [facility] Test 16:10:12 Booster for Pfizer series) [code = COVID-19 VACCINE (3 - Booster for Pfizer series)] Future Scheduled 2022-06-11 65+ [facility] 16:10:12 VACCINE (4 - PPSV23 if available, else PCV20) [code = 65+ PNEUMOCOCCAL VACCINE (4 - PPSV23 if available, else PCV20)] Future Scheduled 2022-06-11 INFLUENZA VACCINE Method [facility] Test 16:10:12 [code = INFLUENZA VACCINE] Future Scheduled 2022-06-11 SHINGLES VACCINES (1 Met [facility] Test 16:10:12 of 2) [code = SHINGLES VACCINES (1 of 2)] Future Scheduled 2022-06-11 BREAST CANCER [facility] Test 16:10:12 SCREENING [code = BREAST CANCER SCREENING] Future Scheduled 2022-06-11 COLONOSCOPY SCREENING [facility] Test 16:10:12 [code = COLONOSCOPY SCREENING] Future Scheduled 2022-06-11 HEPATITIS B VACCINES Met [facility] Test 16:10:12 (1 of 3 - Risk 3-dose series) [code = HEPATITIS B VACCINES (1 of 3 - Risk 3-dose series)] Future Scheduled 2022-06-11 COVID-19 VACCINE (3 - [facility] Test 16:10:12 Booster for Pfizer series) [code = COVID-19 VACCINE (3 - Booster for Pfizer series)] Future Scheduled 2022-06-11 65[facility] VACCINE (4 - PPSV23 if available, else PCV20) [code = 65+ PNEUMOCOCCAL VACCINE (4 - PPSV23 if available, else PCV20)] Future Scheduled 2022-06-11 INFLUENZA VACCINE Method [facility] Test 16:10:12 [code = INFLUENZA VACCINE] Future Scheduled 2022-06-11 SHINGLES VACCINES (1 Met [facility] Test 16:10:12 of 2) [code = SHINGLES VACCINES (1 of 2)] Future Scheduled 2022-06-11 BREAST CANCER [facility] Test 16:10:12 SCREENING [code = BREAST CANCER SCREENING] Future Scheduled 2022-06-11 COLONOSCOPY SCREENING [facility] Test 16:10:12 [code = COLONOSCOPY SCREENING] Future Scheduled 2022-06-11 HEPATITIS B VACCINES Met [facility] Test 16:10:12 (1 of 3 - Risk 3-dose series) [code = HEPATITIS B VACCINES (1 of 3 - Risk 3-dose series)] Future Scheduled 2022-06-11 COVID-19 VACCINE (3 - [facility] Test 16:10:12 Booster for Pfizer series) [code = COVID-19 VACCINE (3 - Booster for Pfizer series)] Future Scheduled 2022-06-11 65+ [facility] 16:10:12 VACCINE (4 - PPSV23 if available, else PCV20) [code = 65+ PNEUMOCOCCAL VACCINE (4 - PPSV23 if available, else PCV20)] Future Scheduled 2022-06-11 INFLUENZA VACCINE Method [facility] Test 16:10:12 [code = INFLUENZA VACCINE] Future Scheduled 2022-05-10 SHINGLES VACCINES (1 Met [facility] Test 10:21:35 of 2) [code = SHINGLES VACCINES (1 of 2)] Future Scheduled 2022-05-10 BREAST CANCER [facility] Test 10:21:35 SCREENING [code = BREAST CANCER SCREENING] Future Scheduled 2022-05-10 COLONOSCOPY SCREENING [facility] Test 10:21:35 [code = COLONOSCOPY SCREENING] Future Scheduled 2022-05-10 HEPATITIS B VACCINES Met [facility] Test 10:21:35 (1 of 3 - Risk 3-dose series) [code = HEPATITIS B VACCINES (1 of 3 - Risk 3-dose series)] Future Scheduled 2022-05-10 COVID-19 VACCINE (3 - [facility] Test 10:21:35 Booster for Pfizer series) [code = COVID-19 VACCINE (3 - Booster for Pfizer series)] Future Scheduled 2022-05-10 65+ [facility]AL [facility] Test 10:21:35 VACCINE (4 - PPSV23 if available, else PCV20) [code = 65+ PNEUMOCOCCAL VACCINE (4 - PPSV23 if available, else PCV20)] Future Scheduled 2022-05-10 INFLUENZA VACCINE Method [facility] Test 10:21:35 [code = INFLUENZA VACCINE] Future Scheduled 2022-05-10 SHINGLES VACCINES (1 Met [facility] Test 10:21:35 of 2) [code = SHINGLES VACCINES (1 of 2)] Future Scheduled 2022-05-10 BREAST CANCER [facility] Test 10:21:35 SCREENING [code = BREAST CANCER SCREENING] Future Scheduled 2022-05-10 COLONOSCOPY SCREENING [facility] Test 10:21:35 [code = COLONOSCOPY SCREENING] Future Scheduled 2022-05-10 HEPATITIS B VACCINES Met [facility] Test 10:21:35 (1 of 3 - Risk 3-dose series) [code = HEPATITIS B VACCINES (1 of 3 - Risk 3-dose series)] Future Scheduled 2022-05-10 COVID-19 VACCINE (3 - [facility] Test 10:21:35 Booster for Pfizer series) [code = COVID-19 VACCINE (3 - Booster for Pfizer series)] Future Scheduled 2022-05-10 65+ [facility] 10:21:35 VACCINE (4 - PPSV23 if available, else PCV20) [code = 65+ PNEUMOCOCCAL VACCINE (4 - PPSV23 if available, else PCV20)] Future Scheduled 2022-05-10 INFLUENZA VACCINE Method [facility] Test 10:21:35 [code = INFLUENZA VACCINE] Future Scheduled 2022-05-06 SHINGLES VACCINES (1 Met [facility] Test 14:03:13 of 2) [code = SHINGLES VACCINES (1 of 2)] Future Scheduled 2022-05-06 BREAST CANCER [facility] Test 14:03:13 SCREENING [code = BREAST CANCER SCREENING] Future Scheduled 2022-05-06 COLONOSCOPY SCREENING [facility] Test 14:03:13 [code = COLONOSCOPY SCREENING] Future Scheduled 2022-05-06 HEPATITIS B VACCINES Met [facility] Test 14:03:13 (1 of 3 - Risk 3-dose series) [code = HEPATITIS B VACCINES (1 of 3 - Risk 3-dose series)] Future Scheduled 2022-05-06 COVID-19 VACCINE (3 - [facility] Test 14:03:13 Booster for Pfizer series) [code = COVID-19 VACCINE (3 - Booster for Pfizer series)] Future Scheduled 2022-05-06 65+ PNEUMOCOCCAL [facility] Test 14:03:13 VACCINE (4 - PPSV23 if available, else PCV20) [code = 65+ PNEUMOCOCCAL VACCINE (4 - PPSV23 if available, else PCV20)] Future Scheduled 2022-05-06 INFLUENZA VACCINE Method [facility] Test 14:03:13 [code = INFLUENZA VACCINE] Future Scheduled 2022-04-30 SHINGLES VACCINES (1 Met [facility] Test 01:07:32 of 2) [code = SHINGLES VACCINES (1 of 2)] Future Scheduled 2022-04-30 BREAST CANCER [facility] Test 01:07:32 SCREENING [code = BREAST CANCER SCREENING] Future Scheduled 2022-04-30 COLONOSCOPY SCREENING [facility] Test 01:07:32 [code = COLONOSCOPY SCREENING] Future Scheduled 2022-04-30 HEPATITIS B VACCINES Met [facility] Test 01:07:32 (1 of 3 - Risk 3-dose series) [code = HEPATITIS B VACCINES (1 of 3 - Risk 3-dose series)] Future Scheduled 2022-04-30 COVID-19 VACCINE (3 - [facility] Test 01:07:32 Booster for Pfizer series) [code = COVID-19 VACCINE (3 - Booster for Pfizer series)] Future Scheduled 2022-04-30 65+ PNEUMOCOCCAL [facility] Test 01:07:32 VACCINE (4 - PPSV23 if available, else PCV20) [code = 65+ PNEUMOCOCCAL VACCINE (4 - PPSV23 if available, else PCV20)] Future Scheduled 2022-04-30 INFLUENZA VACCINE Method [facility] Test 01:07:32 [code = INFLUENZA VACCINE] Future Scheduled 2022-04-30 SHINGLES VACCINES (1 Met [facility] Test 01:07:32 of 2) [code = SHINGLES VACCINES (1 of 2)] Future Scheduled 2022-04-30 BREAST CANCER [facility] Test 01:07:32 SCREENING [code = BREAST CANCER SCREENING] Future Scheduled 2022-04-30 COLONOSCOPY SCREENING [facility] Test 01:07:32 [code = COLONOSCOPY SCREENING] Future Scheduled 2022-04-30 HEPATITIS B VACCINES Met [facility] Test 01:07:32 (1 of 3 - Risk 3-dose series) [code = HEPATITIS B VACCINES (1 of 3 - Risk 3-dose series)] Future Scheduled 2022-04-30 COVID-19 VACCINE (3 - [facility] Test 01:07:32 Booster for Pfizer series) [code = COVID-19 VACCINE (3 - Booster for Pfizer series)] Future Scheduled 2022-04-30 65+ PNEUMOCOCCAL [facility] Test 01:07:32 VACCINE (4 - PPSV23 if available, else PCV20) [code = 65+ PNEUMOCOCCAL VACCINE (4 - PPSV23 if available, else PCV20)] Future Scheduled 2022-04-30 INFLUENZA VACCINE Method [facility] Test 01:07:32 [code = INFLUENZA VACCINE] Future Scheduled 2022-04-30 SHINGLES VACCINES (1 Met [facility] Test 01:07:32 of 2) [code = SHINGLES VACCINES (1 of 2)] Future Scheduled 2022-04-30 BREAST CANCER [facility] Test 01:07:32 SCREENING [code = BREAST CANCER SCREENING] Future Scheduled 2022-04-30 COLONOSCOPY SCREENING [facility] Test 01:07:32 [code = COLONOSCOPY SCREENING] Future Scheduled 2022-04-30 HEPATITIS B VACCINES Met [facility] Test 01:07:32 (1 of 3 - Risk 3-dose series) [code = HEPATITIS B VACCINES (1 of 3 - Risk 3-dose series)] Future Scheduled 2022-04-30 COVID-19 VACCINE (3 - [facility] Test 01:07:32 Booster for Pfizer series) [code = COVID-19 VACCINE (3 - Booster for Pfizer series)] Future Scheduled 2022-04-30 65+ PNEUMOCOCCAL [facility] Test 01:07:32 VACCINE (4 - PPSV23 if available, else PCV20) [code = 65+ PNEUMOCOCCAL VACCINE (4 - PPSV23 if available, else PCV20)] Future Scheduled 2022-04-30 INFLUENZA VACCINE Method [facility] Test 01:07:32 [code = INFLUENZA VACCINE] Future Scheduled 2022-04-25 SHINGLES VACCINES (1 Met [facility] Test 01:45:02 of 2) [code = SHINGLES VACCINES (1 of 2)] Future Scheduled 2022-04-25 BREAST CANCER [facility] Test 01:45:02 SCREENING [code = BREAST CANCER SCREENING] Future Scheduled 2022-04-25 COLONOSCOPY SCREENING [facility] Test 01:45:02 [code = COLONOSCOPY SCREENING] Future Scheduled 2022-04-25 HEPATITIS B VACCINES Met [facility] Test 01:45:02 (1 of 3 - Risk 3-dose series) [code = HEPATITIS B VACCINES (1 of 3 - Risk 3-dose series)] Future Scheduled 2022-04-25 COVID-19 VACCINE (3 - [facility] Test 01:45:02 Booster for Pfizer series) [code = COVID-19 VACCINE (3 - Booster for Pfizer series)] Future Scheduled 2022-04-25 65+ PNEUMOCOCCAL [facility] Test 01:45:02 VACCINE (4 - PPSV23 if available, else PCV20) [code = 65+ PNEUMOCOCCAL VACCINE (4 - PPSV23 if available, else PCV20)] Future Scheduled 2022-04-25 INFLUENZA VACCINE Method [facility] Test 01:45:02 [code = INFLUENZA VACCINE] Future Scheduled 2022-03-25 SHINGLES VACCINES (1 Met [facility] Test 14:48:42 of 2) [code = SHINGLES VACCINES (1 of 2)] Future Scheduled 2022-03-25 BREAST CANCER [facility] Test 14:48:42 SCREENING [code = BREAST CANCER SCREENING] Future Scheduled 2022-03-25 COLONOSCOPY SCREENING [facility] Test 14:48:42 [code = COLONOSCOPY SCREENING] Future Scheduled 2022-03-25 HEPATITIS B VACCINES Met [facility] Test 14:48:42 (1 of 3 - Risk 3-dose series) [code = HEPATITIS B VACCINES (1 of 3 - Risk 3-dose series)] Future Scheduled 2022-03-25 COVID-19 VACCINE (3 - [facility] Test 14:48:42 Booster for Pfizer series) [code = COVID-19 VACCINE (3 - Booster for Pfizer series)] Future Scheduled 2022-03-25 65[facility] VACCINE (4 - PPSV23 if available, else PCV20) [code = 65+ PNEUMOCOCCAL VACCINE (4 - PPSV23 if available, else PCV20)] Future Scheduled 2022-03-25 INFLUENZA VACCINE Method [facility] Test 14:48:42 [code = INFLUENZA VACCINE] Future Scheduled 2022-03-25 SHINGLES VACCINES (1 Met [facility] Test 14:48:42 of 2) [code = SHINGLES VACCINES (1 of 2)] Future Scheduled 2022-03-25 BREAST CANCER [facility] Test 14:48:42 SCREENING [code = BREAST CANCER SCREENING] Future Scheduled 2022-03-25 COLONOSCOPY SCREENING [facility] Test 14:48:42 [code = COLONOSCOPY SCREENING] Future Scheduled 2022-03-25 HEPATITIS B VACCINES Met [facility] Test 14:48:42 (1 of 3 - Risk 3-dose series) [code = HEPATITIS B VACCINES (1 of 3 - Risk 3-dose series)] Future Scheduled 2022-03-25 COVID-19 VACCINE (3 - [facility] Test 14:48:42 Booster for Pfizer series) [code = COVID-19 VACCINE (3 - Booster for Pfizer series)] Future Scheduled 2022-03-25 65+ [facility]AL [facility] 14:48:42 VACCINE (4 - PPSV23 if available, else PCV20) [code = 65+ PNEUMOCOCCAL VACCINE (4 - PPSV23 if available, else PCV20)] Future Scheduled 2022-03-25 INFLUENZA VACCINE Method [facility] Test 14:48:42 [code = INFLUENZA VACCINE] Future Scheduled 2022-03-25 SHINGLES VACCINES (1 Met [facility] Test 14:48:42 of 2) [code = SHINGLES VACCINES (1 of 2)] Future Scheduled 2022-03-25 BREAST CANCER [facility] Test 14:48:42 SCREENING [code = BREAST CANCER SCREENING] Future Scheduled 2022-03-25 COLONOSCOPY SCREENING [facility] Test 14:48:42 [code = COLONOSCOPY SCREENING] Future Scheduled 2022-03-25 HEPATITIS B VACCINES Met [facility] Test 14:48:42 (1 of 3 - Risk 3-dose series) [code = HEPATITIS B VACCINES (1 of 3 - Risk 3-dose series)] Future Scheduled 2022-03-25 COVID-19 VACCINE (3 - [facility] Test 14:48:42 Booster for Pfizer series) [code = COVID-19 VACCINE (3 - Booster for Pfizer series)] Future Scheduled 2022-03-25 65+ [facility] 14:48:42 VACCINE (4 - PPSV23 if available, else PCV20) [code = 65+ PNEUMOCOCCAL VACCINE (4 - PPSV23 if available, else PCV20)] Future Scheduled 2022-03-25 INFLUENZA VACCINE Method [facility] Test 14:48:42 [code = INFLUENZA VACCINE] Future Scheduled 2022-03-25 SHINGLES VACCINES (1 Met [facility] Test 14:48:42 of 2) [code = SHINGLES VACCINES (1 of 2)] Future Scheduled 2022-03-25 BREAST CANCER [facility] Test 14:48:42 SCREENING [code = BREAST CANCER SCREENING] Future Scheduled 2022-03-25 COLONOSCOPY SCREENING [facility] Test 14:48:42 [code = COLONOSCOPY SCREENING] Future Scheduled 2022-03-25 HEPATITIS B VACCINES Met [facility] Test 14:48:42 (1 of 3 - Risk 3-dose series) [code = HEPATITIS B VACCINES (1 of 3 - Risk 3-dose series)] Future Scheduled 2022-03-25 COVID-19 VACCINE (3 - [facility] Test 14:48:42 Booster for Pfizer series) [code = COVID-19 VACCINE (3 - Booster for Pfizer series)] Future Scheduled 2022-03-25 65+ [facility] 14:48:42 VACCINE (4 - PPSV23 if available, else PCV20) [code = 65+ PNEUMOCOCCAL VACCINE (4 - PPSV23 if available, else PCV20)] Future Scheduled 2022-03-25 INFLUENZA VACCINE Method [facility] Test 14:48:42 [code = INFLUENZA VACCINE] Future Scheduled 2022-03-25 SHINGLES VACCINES (1 Met [facility] Test 14:48:42 of 2) [code = SHINGLES VACCINES (1 of 2)] Future Scheduled 2022-03-25 BREAST CANCER [facility] Test 14:48:42 SCREENING [code = BREAST CANCER SCREENING] Future Scheduled 2022-03-25 COLONOSCOPY SCREENING [facility] Test 14:48:42 [code = COLONOSCOPY SCREENING] Future Scheduled 2022-03-25 HEPATITIS B VACCINES Met [facility] Test 14:48:42 (1 of 3 - Risk 3-dose series) [code = HEPATITIS B VACCINES (1 of 3 - Risk 3-dose series)] Future Scheduled 2022-03-25 COVID-19 VACCINE (3 - [facility] Test 14:48:42 Booster for Pfizer series) [code = COVID-19 VACCINE (3 - Booster for Pfizer series)] Future Scheduled 2022-03-25 65+ [facility] 14:48:42 VACCINE (4 - PPSV23 if available, else PCV20) [code = 65+ PNEUMOCOCCAL VACCINE (4 - PPSV23 if available, else PCV20)] Future Scheduled 2022-03-25 INFLUENZA VACCINE Method [facility] Test 14:48:42 [code = INFLUENZA VACCINE] Future Scheduled 2022-03-25 SHINGLES VACCINES (1 Met [facility] Test 14:48:42 of 2) [code = SHINGLES VACCINES (1 of 2)] Future Scheduled 2022-03-25 BREAST CANCER [facility] Test 14:48:42 SCREENING [code = BREAST CANCER SCREENING] Future Scheduled 2022-03-25 COLONOSCOPY SCREENING [facility] Test 14:48:42 [code = COLONOSCOPY SCREENING] Future Scheduled 2022-03-25 HEPATITIS B VACCINES Met [facility] Test 14:48:42 (1 of 3 - Risk 3-dose series) [code = HEPATITIS B VACCINES (1 of 3 - Risk 3-dose series)] Future Scheduled 2022-03-25 COVID-19 VACCINE (3 - [facility] Test 14:48:42 Booster for Pfizer series) [code = COVID-19 VACCINE (3 - Booster for Pfizer series)] Future Scheduled 2022-03-25 65[facility]:48[facility] VACCINE (4 - PPSV23 if available, else PCV20) [code = 65+ PNEUMOCOCCAL VACCINE (4 - PPSV23 if available, else PCV20)] Future Scheduled 2022-03-25 INFLUENZA VACCINE Method [facility] Test 14:48:42 [code = INFLUENZA VACCINE] Future Scheduled 2022-03-25 SHINGLES VACCINES (1 Met [facility] Test 14:48:42 of 2) [code = SHINGLES VACCINES (1 of 2)] Future Scheduled 2022-03-25 BREAST CANCER [facility] Test 14:48:42 SCREENING [code = BREAST CANCER SCREENING] Future Scheduled 2022-03-25 COLONOSCOPY SCREENING [facility] Test 14:48:42 [code = COLONOSCOPY SCREENING] Future Scheduled 2022-03-25 HEPATITIS B VACCINES Met [facility] Test 14:48:42 (1 of 3 - Risk 3-dose series) [code = HEPATITIS B VACCINES (1 of 3 - Risk 3-dose series)] Future Scheduled 2022-03-25 COVID-19 VACCINE (3 - [facility] Test 14:48:42 Booster for Pfizer series) [code = COVID-19 VACCINE (3 - Booster for Pfizer series)] Future Scheduled 2022-03-25 65[facility]:48:[facility] VACCINE (4 - PPSV23 if available, else PCV20) [code = 65+ PNEUMOCOCCAL VACCINE (4 - PPSV23 if available, else PCV20)] Future Scheduled 2022-03-25 INFLUENZA VACCINE Method [facility] Test 14:48:42 [code = INFLUENZA VACCINE] Future Scheduled 2022-03-25 SHINGLES VACCINES (1 Met [facility] Test 14:48:42 of 2) [code = SHINGLES VACCINES (1 of 2)] Future Scheduled 2022-03-25 BREAST CANCER [facility] Test 14:48:42 SCREENING [code = BREAST CANCER SCREENING] Future Scheduled 2022-03-25 COLONOSCOPY SCREENING [facility] Test 14:48:42 [code = COLONOSCOPY SCREENING] Future Scheduled 2022-03-25 HEPATITIS B VACCINES Met [facility] Test 14:48:42 (1 of 3 - Risk 3-dose series) [code = HEPATITIS B VACCINES (1 of 3 - Risk 3-dose series)] Future Scheduled 2022-03-25 COVID-19 VACCINE (3 - [facility] Test 14:48:42 Booster for Pfizer series) [code = COVID-19 VACCINE (3 - Booster for Pfizer series)] Future Scheduled 2022-03-25 65+ PNEUMOCOCCAL [facility] Test 14:48:42 VACCINE (4 - PPSV23 if available, else PCV20) [code = 65+ PNEUMOCOCCAL VACCINE (4 - PPSV23 if available, else PCV20)] Future Scheduled 2022-03-25 INFLUENZA VACCINE Method [facility] Test 14:48:42 [code = INFLUENZA VACCINE] Future Scheduled 2022-03-25 SHINGLES VACCINES (1 Met [facility] Test 14:48:42 of 2) [code = SHINGLES VACCINES (1 of 2)] Future Scheduled 2022-03-25 BREAST CANCER [facility] Test 14:48:42 SCREENING [code = BREAST CANCER SCREENING] Future Scheduled 2022-03-25 COLONOSCOPY SCREENING [facility] Test 14:48:42 [code = COLONOSCOPY SCREENING] Future Scheduled 2022-03-25 HEPATITIS B VACCINES Met [facility] Test 14:48:42 (1 of 3 - Risk 3-dose series) [code = HEPATITIS B VACCINES (1 of 3 - Risk 3-dose series)] Future Scheduled 2022-03-25 COVID-19 VACCINE (3 - [facility] Test 14:48:42 Booster for Pfizer series) [code = COVID-19 VACCINE (3 - Booster for Pfizer series)] Future Scheduled 2022-03-25 65[facility]:48[facility] VACCINE (4 - PPSV23 if available, else PCV20) [code = 65+ PNEUMOCOCCAL VACCINE (4 - PPSV23 if available, else PCV20)] Future Scheduled 2022-03-25 INFLUENZA VACCINE Method [facility] Test 14:48:42 [code = INFLUENZA VACCINE] Future Scheduled 2022-03-04 SHINGLES VACCINES (1 Met [facility] Test 14:03:57 of 2) [code = SHINGLES VACCINES (1 of 2)] Future Scheduled 2022-03-04 BREAST CANCER [facility] Test 14:03:57 SCREENING [code = BREAST CANCER SCREENING] Future Scheduled 2022-03-04 COLONOSCOPY SCREENING [facility] Test 14:03:57 [code = COLONOSCOPY SCREENING] Future Scheduled 2022-03-04 HEPATITIS B VACCINES Met [facility] Test 14:03:57 (1 of 3 - Risk 3-dose series) [code = HEPATITIS B VACCINES (1 of 3 - Risk 3-dose series)] Future Scheduled 2022-03-04 COVID-19 VACCINE (3 - [facility] Test 14:03:57 Booster for Pfizer series) [code = COVID-19 VACCINE (3 - Booster for Pfizer series)] Future Scheduled 2022-03-04 65[facility]:03:57 VACCINE (4 - PPSV23 if available, else PCV20) [code = 65+ PNEUMOCOCCAL VACCINE (4 - PPSV23 if available, else PCV20)] Future Scheduled 2022-03-04 INFLUENZA VACCINE [facility] Test 14:03:57 [code = INFLUENZA VACCINE] Future Scheduled 2022-03-04 SHINGLES VACCINES (1 Met [facility] Test 14:03:57 of 2) [code = SHINGLES VACCINES (1 of 2)] Future Scheduled 2022-03-04 BREAST CANCER [facility] Test 14:03:57 SCREENING [code = BREAST CANCER SCREENING] Future Scheduled 2022-03-04 COLONOSCOPY SCREENING [facility] Test 14:03:57 [code = COLONOSCOPY SCREENING] Future Scheduled 2022-03-04 HEPATITIS B VACCINES Met [facility] Test 14:03:57 (1 of 3 - Risk 3-dose series) [code = HEPATITIS B VACCINES (1 of 3 - Risk 3-dose series)] Future Scheduled 2022-03-04 COVID-19 VACCINE (3 - [facility] Test 14:03:57 Booster for Pfizer series) [code = COVID-19 VACCINE (3 - Booster for Pfizer series)] Future Scheduled 2022-03-04 65[facility]57 VACCINE (4 - PPSV23 if available, else PCV20) [code = 65+ PNEUMOCOCCAL VACCINE (4 - PPSV23 if available, else PCV20)] Future Scheduled 2022-03-04 INFLUENZA VACCINE Method [facility] Test 14:03:57 [code = INFLUENZA VACCINE] Future Scheduled 2022-03-04 SHINGLES VACCINES (1 Met [facility] Test 14:03:57 of 2) [code = SHINGLES VACCINES (1 of 2)] Future Scheduled 2022-03-04 BREAST CANCER [facility] Test 14:03:57 SCREENING [code = BREAST CANCER SCREENING] Future Scheduled 2022-03-04 COLONOSCOPY SCREENING [facility] Test 14:03:57 [code = COLONOSCOPY SCREENING] Future Scheduled 2022-03-04 HEPATITIS B VACCINES Met [facility] Test 14:03:57 (1 of 3 - Risk 3-dose series) [code = HEPATITIS B VACCINES (1 of 3 - Risk 3-dose series)] Future Scheduled 2022-03-04 COVID-19 VACCINE (3 - [facility] Test 14:03:57 Booster for Pfizer series) [code = COVID-19 VACCINE (3 - Booster for Pfizer series)] Future Scheduled 2022-03-04 65+ PNEUMOCOCCAL [facility] Test 14:03:57 VACCINE (4 - PPSV23 if available, else PCV20) [code = 65+ PNEUMOCOCCAL VACCINE (4 - PPSV23 if available, else PCV20)] Future Scheduled 2022-03-04 INFLUENZA VACCINE Method [facility] Test 14:03:57 [code = INFLUENZA VACCINE] Future Scheduled 2022-03-04 SHINGLES VACCINES (1 Met [facility] Test 14:03:57 of 2) [code = SHINGLES VACCINES (1 of 2)] Future Scheduled 2022-03-04 BREAST CANCER [facility] Test 14:03:57 SCREENING [code = BREAST CANCER SCREENING] Future Scheduled 2022-03-04 COLONOSCOPY SCREENING [facility] Test 14:03:57 [code = COLONOSCOPY SCREENING] Future Scheduled 2022-03-04 HEPATITIS B VACCINES Met [facility] Test 14:03:57 (1 of 3 - Risk 3-dose series) [code = HEPATITIS B VACCINES (1 of 3 - Risk 3-dose series)] Future Scheduled 2022-03-04 COVID-19 VACCINE (3 - [facility] Test 14:03:57 Booster for Pfizer series) [code = COVID-19 VACCINE (3 - Booster for Pfizer series)] Future Scheduled 2022-03-04 65+ [facility] 14:03:57 VACCINE (4 - PPSV23 if available, else PCV20) [code = 65+ PNEUMOCOCCAL VACCINE (4 - PPSV23 if available, else PCV20)] Future Scheduled 2022-03-04 INFLUENZA VACCINE Method [facility] Test 14:03:57 [code = INFLUENZA VACCINE] Future Scheduled 2022-02-11 SHINGLES VACCINES (1 Met [facility] Test 13:39:12 of 2) [code = SHINGLES VACCINES (1 of 2)] Future Scheduled 2022-02-11 BREAST CANCER [facility] Test 13:39:12 SCREENING [code = BREAST CANCER SCREENING] Future Scheduled 2022-02-11 COLONOSCOPY SCREENING [facility] Test 13:39:12 [code = COLONOSCOPY SCREENING] Future Scheduled 2022-02-11 HEPATITIS B VACCINES Met [facility] Test 13:39:12 (1 of 3 - Risk 3-dose series) [code = HEPATITIS B VACCINES (1 of 3 - Risk 3-dose series)] Future Scheduled 2022-02-11 COVID-19 VACCINE (3 - [facility] Test 13:39:12 Booster for Pfizer series) [code = COVID-19 VACCINE (3 - Booster for Pfizer series)] Future Scheduled 2022-02-11 65+ PNEUMOCOCCAL [facility] Test 13:39:12 VACCINE (4 - PPSV23 or PCV20) [code = 65+ PNEUMOCOCCAL VACCINE (4 - PPSV23 or PCV20)] Future Scheduled 2022-02-11 INFLUENZA VACCINE Method [facility] Test 13:39:12 [code = INFLUENZA VACCINE] Future Scheduled 2022-01-29 SHINGLES VACCINES (1 Met [facility] Test 14:07:20 of 2) [code = SHINGLES VACCINES (1 of 2)] Future Scheduled 2022-01-29 BREAST CANCER [facility] Test 14:07:20 SCREENING [code = BREAST CANCER SCREENING] Future Scheduled 2022-01-29 COLONOSCOPY SCREENING [facility] Test 14:07:20 [code = COLONOSCOPY SCREENING] Future Scheduled 2022-01-29 HEPATITIS B VACCINES Met [facility] Test 14:07:20 (1 of 3 - Risk 3-dose series) [code = HEPATITIS B VACCINES (1 of 3 - Risk 3-dose series)] Future Scheduled 2022-01-29 COVID-19 VACCINE (3 - [facility] Test 14:07:20 Booster for Pfizer series) [code = COVID-19 VACCINE (3 - Booster for Pfizer series)] Future Scheduled 2022-01-29 65+ PNEUMOCOCCAL [facility] Test 14:07:20 VACCINE (4 - PPSV23 or PCV20) [code = 65+ PNEUMOCOCCAL VACCINE (4 - PPSV23 or PCV20)] Future Scheduled 2022-01-29 INFLUENZA VACCINE Method [facility] Test 14:07:20 [code = INFLUENZA VACCINE] Future Scheduled 2022-01-29 SHINGLES VACCINES (1 Met [facility] Test 14:07:20 of 2) [code = SHINGLES VACCINES (1 of 2)] Future Scheduled 2022-01-29 BREAST CANCER [facility] Test 14:07:20 SCREENING [code = BREAST CANCER SCREENING] Future Scheduled 2022-01-29 COLONOSCOPY SCREENING [facility] Test 14:07:20 [code = COLONOSCOPY SCREENING] Future Scheduled 2022-01-29 HEPATITIS B VACCINES Met [facility] Test 14:07:20 (1 of 3 - Risk 3-dose series) [code = HEPATITIS B VACCINES (1 of 3 - Risk 3-dose series)] Future Scheduled 2022-01-29 COVID-19 VACCINE (3 - [facility] Test 14:07:20 Booster for Pfizer series) [code = COVID-19 VACCINE (3 - Booster for Pfizer series)] Future Scheduled 2022-01-29 65+ PNEUMOCOCCAL [facility] Test 14:07:20 VACCINE (4 - PPSV23 or PCV20) [code = 65+ PNEUMOCOCCAL VACCINE (4 - PPSV23 or PCV20)] Future Scheduled 2022-01-29 INFLUENZA VACCINE Method [facility] Test 14:07:20 [code = INFLUENZA VACCINE] Future Scheduled 2022-01-29 SHINGLES VACCINES (1 Met [facility] Test 14:07:20 of 2) [code = SHINGLES VACCINES (1 of 2)] Future Scheduled 2022-01-29 BREAST CANCER [facility] Test 14:07:20 SCREENING [code = BREAST CANCER SCREENING] Future Scheduled 2022-01-29 COLONOSCOPY SCREENING [facility] Test 14:07:20 [code = COLONOSCOPY SCREENING] Future Scheduled 2022-01-29 HEPATITIS B VACCINES Met [facility] Test 14:07:20 (1 of 3 - Risk 3-dose series) [code = HEPATITIS B VACCINES (1 of 3 - Risk 3-dose series)] Future Scheduled 2022-01-29 COVID-19 VACCINE ([facility] - [facility] Test 14:07:20 Booster for Pfizer series) [code = COVID-19 VACCINE (3 - Booster for Pfizer series)] Future Scheduled 2022-01-29 65+ PNEUMOCOCCAL [facility] Test 14:07:20 VACCINE (4 - PPSV23 or PCV20) [code = 65+ PNEUMOCOCCAL VACCINE (4 - PPSV23 or PCV20)] Future Scheduled 2022-01-29 INFLUENZA VACCINE Method [facility] Test 14:07:20 [code = INFLUENZA VACCINE] Future Scheduled 2022-01-29 SHINGLES VACCINES (1 Met [facility] Test 14:07:20 of 2) [code = SHINGLES VACCINES (1 of 2)] Future Scheduled 2022-01-29 BREAST CANCER [facility] Test 14:07:20 SCREENING [code = BREAST CANCER SCREENING] Future Scheduled 2022-01-29 COLONOSCOPY SCREENING [facility] Test 14:07:20 [code = COLONOSCOPY SCREENING] Future Scheduled 2022-01-29 HEPATITIS B VACCINES Met [facility] Test 14:07:20 (1 of 3 - Risk 3-dose series) [code = HEPATITIS B VACCINES (1 of 3 - Risk 3-dose series)] Future Scheduled 2022-01-29 COVID-19 VACCINE (3 - [facility] Test 14:07:20 Booster for Pfizer series) [code = COVID-19 VACCINE (3 - Booster for Pfizer series)] Future Scheduled 2022-01-29 65+ PNEUMOCOCCAL [facility] Test 14:07:20 VACCINE (4 - PPSV23 or PCV20) [code = 65+ PNEUMOCOCCAL VACCINE (4 - PPSV23 or PCV20)] Future Scheduled 2022-01-29 INFLUENZA VACCINE Method [facility] Test 14:07:20 [code = INFLUENZA VACCINE] Future Scheduled 2022-01-20 SHINGLES VACCINES (1 Met [facility] Test 06:12:34 of 2) [code = SHINGLES VACCINES (1 of 2)] Future Scheduled 2022-01-20 Screening for [facility] Test 06:12:34 malignant neoplasm of cervix (procedure) [code = [id number]] Future Scheduled 2022-01-20 BREAST CANCER [facility] Test 06:12:34 SCREENING [code = BREAST CANCER SCREENING] Future Scheduled 2022-01-20 COLONOSCOPY SCREENING [facility] Test 06:12:34 [code = COLONOSCOPY SCREENING] Future Scheduled 2022-01-20 HEPATITIS B VACCINES Met [facility] Test 06:12:34 (1 of 3 - Risk 3-dose series) [code = HEPATITIS B VACCINES (1 of 3 - Risk 3-dose series)] Future Scheduled 2022-01-20 COVID-19 VACCINE (3 - [facility] Test 06:12:34 Booster for Pfizer series) [code = COVID-19 VACCINE (3 - Booster for Pfizer series)] Future Scheduled 2022-01-20 65+ PNEUMOCOCCAL [facility] Test 06:12:34 VACCINE (4 - PPSV23 or PCV20) [code = 65+ PNEUMOCOCCAL VACCINE (4 - PPSV23 or PCV20)] Future Scheduled 2022-01-20 INFLUENZA VACCINE Method [facility] Test 06:12:34 [code = INFLUENZA VACCINE] Future Scheduled 2022-01-16 SHINGLES VACCINES (1 Met [facility] Test 12:09:25 of 2) [code = SHINGLES VACCINES (1 of 2)] Future Scheduled 2022-01-16 Screening for [facility] Test 12:09:25 malignant neoplasm of cervix (procedure) [code = [id number]] Future Scheduled 2022-01-16 BREAST CANCER [facility] Test 12:09:25 SCREENING [code = BREAST CANCER SCREENING] Future Scheduled 2022-01-16 COLONOSCOPY SCREENING [facility] Test 12:09:25 [code = COLONOSCOPY SCREENING] Future Scheduled 2022-01-16 HEPATITIS B VACCINES Met [facility] Test 12:09:25 (1 of 3 - Risk 3-dose series) [code = HEPATITIS B VACCINES (1 of 3 - Risk 3-dose series)] Future Scheduled 2022-01-16 COVID-19 VACCINE (3 - [facility] Test 12:09:25 Booster for Pfizer series) [code = COVID-19 VACCINE (3 - Booster for Pfizer series)] Future Scheduled 2022-01-16 65+ PNEUMOCOCCAL [facility] Test 12:09:25 VACCINE (4 - PPSV23 or PCV20) [code = 65+ PNEUMOCOCCAL VACCINE (4 - PPSV23 or PCV20)] Future Scheduled 2022-01-16 INFLUENZA VACCINE Method [facility] Test 12:09:25 [code = INFLUENZA VACCINE] Future Scheduled 2022-01-14 SHINGLES VACCINES (1 Met [facility] Test 04:11:46 of 2) [code = SHINGLES VACCINES (1 of 2)] Future Scheduled 2022-01-14 Screening for [facility] Test 04:11:46 malignant neoplasm of cervix (procedure) [code = [id number]] Future Scheduled 2022-01-14 BREAST CANCER [facility] Test 04:11:46 SCREENING [code = BREAST CANCER SCREENING] Future Scheduled 2022-01-14 COLONOSCOPY SCREENING [facility] Test 04:11:46 [code = COLONOSCOPY SCREENING] Future Scheduled 2022-01-14 HEPATITIS B VACCINES Met [facility] Test 04:11:46 (1 of 3 - Risk 3-dose series) [code = HEPATITIS B VACCINES (1 of 3 - Risk 3-dose series)] Future Scheduled 2022-01-14 COVID-19 VACCINE (3 - [facility] Test 04:11:46 Booster for Pfizer series) [code = COVID-19 VACCINE (3 - Booster for Pfizer series)] Future Scheduled 2022-01-14 65+ PNEUMOCOCCAL [facility] Test 04:11:46 VACCINE (4 - PPSV23 or PCV20) [code = 65+ PNEUMOCOCCAL VACCINE (4 - PPSV23 or PCV20)] Future Scheduled 2022-01-14 INFLUENZA VACCINE Method [facility] Test 04:11:46 [code = INFLUENZA VACCINE] Future Scheduled 2021-08-26 Screening for [facility] Test 13:02:23 malignant neoplasm of cervix (procedure) [code = [id number]] Future Scheduled 2021-08-26 BREAST CANCER [facility] Test 13:02:23 SCREENING [code = BREAST CANCER SCREENING] Future Scheduled 2021-08-26 COLONOSCOPY SCREENING [facility] Test 13:02:23 [code = COLONOSCOPY SCREENING] Future Scheduled 2021-08-26 Screening for [facility] Test 13:02:23 malignant neoplasm of lung (procedure) [code = [id number]] Future Scheduled 2021-08-26 SHINGLES VACCINES (#1) M [facility] Test 13:02:23 [code = SHINGLES VACCINES (#1)] Future Scheduled 2021-08-26 COVID-19 VACCINE (3 - [facility] Test 13:02:23 Pfizer risk 4-dose series) [code = COVID-19 VACCINE (3 - Pfizer risk 4-dose series)] Future Scheduled 2021-08-26 65[facility] 13:02:23 VACCINE (4 of 4 - PPSV23) [code = 65+ PNEUMOCOCCAL VACCINE (4 of 4 - PPSV23)] Future Scheduled 2021-08-26 INFLUENZA VACCINE Method [facility] Test 13:02:23 [code = INFLUENZA VACCINE] Encounters Start End Encounter Admission Attending Care Care Encounter Source Date/Time Date/Time Type Type Clinicians Facility Department ID 2022-02-18 Outpatient CHW CHW [id number] [place] 14:30:[address] [place] [address] and [facility] 2021-07-14 Outpatient SADIKOVIC, [facility] [id number] [place] 09:33:51 [facility] 2021-06-02 Outpatient HEM[address]OUR, [facility] [id number] [place] 13:58:59 [facility] 2021-04-28 Outpatient HEMATPOUR, [facility] [id number] [place] 11:21:22 [facility] 2021-03-20 Emergency [facility] [id number] Univers 16:07:40 [facility] 2020-12-12 Outpatient HEMATPOUR, [facility] [id number] [place] 08:16:46 [facility]ASHAYAR [facility]alt 2020-10-31 Outpatient HEMATPOUR, [facility] [id number] [place] 09:44:50 [facility] 2020-09-30 Outpatient HEMATPOUR, [facility] [id number] [place] 13:16:03 [facility] 2022-05-20 2022-05-20 Telephone [place], [facility] 1.2.840.114 [id number] Univers 00:00:00 00:00:00 [facility] [id number] i ty of CLINICS 4.2.7.2.686 [facility] s [id number] [place] [address] [place] 2022-05-10 2022-05-10 Emergency X BYRON, [facility] ERT [id number] Univers 10:30:00 16:31:00 HOME ity [facility] 2022-05-10 2022-05-10 Emergency Byron, TRAUMA 1.2.840.114 [id number] Univers 10:30:00 16:31:00 Home CENTER 350.1.13.10 [place] [id number] [facility] [address] [place] 2022-05-10 2022-05-10 Telephone [facility] 1.2.840.114 [id number] Univers 00:00:00 00:00:00 [facility] 350.1.13.10 i [id number] [address] 2022-05-08 2022-05-08 Emergency X [facility] ERT [id number] Univers 16:18:00 18:42:00 THERESA barbosa [facility] 2022-05-08 2022-05-08 [facility] 1.2.840.114 [id number] Univers 16:18:00 18:42:00 Theresa BULLOCK 350.1.13.10 ity [place] [id number] [address] 2022-05-07 2022-05-07 Telephone [facility] 1.2.840.114 [id number] Univers 00:00:00 00:00:00 [facility] 350.1.13.10 i ty [place] [id number] [address] 2022-05-06 2022-05-06 Emergency X [facility] ERT [id number] Univers 14:13:00 18:19:00 ANETTE barbosa [facility] 2022-05-06 2022-05-06 Emergency [facility] 1.2.931.439 [id number] Univers 14:13:00 18:19:00 Anette BULLOCK 350.1.13.10 [place] [id number] [address] 2022-05-06 2022-05-06 Telephone [facility] 1.2.840.114 [id number] Univers 00:00:00 00:00:00 [facility] 350.1.13.10 i [id number] [address] 2022-04-22 2022-04-[address] [facility] [id number] Univers 13:55:00 17:00:[address] [facility] 2022-04-22 2022-04-[address] [facility] [id number] Univers 13:55:00 17:00:00 Paulette Bach [place] 350.1.13.10 i ty [place] 4.2.7.2.686 [place] [id number] [address] 2022-04-07 2022-04-07 Outpatient R [facility] [id number] Univers 20:40:00 20:40:00 [facility]-07 2022-04-07 Telephone [place], 1.2.840.5 [id number] Univers 00:00:00 00:00:00 Robbi Hairston 26660.1.1 i ty of 3.104.2.7 [place] .3.859451 Medica l .8 [place] 2022-03-05 2022-03-05 Profiler Santiago Cardenas 1.2.840.1 [id number] Univers 13:45:00 14:00:00 Visit [facility] 64188.1.1 ity of 3.104.2.7 [place] .3.370350 Medica l .8 [place] 2022-03-05 2022-03-05 Office RonaldJOSÉ ANTONIO 1.2.059.323 [id number] Univers 13:00:00 13:30:00 Visit [facility] 350.1.13.10 i ty of [facility] 4.2.7.2.[id number] [address] 2022-03-05 2022-03-05 Outpatient [facility] [id number] Univers 13:00:00 13:00:[address] [facility] 2022-02-26 2022-02-26 Outpatient R [facility] [id number] Univers 08:30:00 08:30:00 [facility] 2022-02-26 2022-02-26 Outpatient R RONALD, [facility] [id number] Univers 08:30:00 08:30:00 SANTIAGO ity of [facility] 2022-02-17 2022-02-17 Transition Stevo, 1.2.840.6 [id number] Univers 00:00:00 00:00:00 of Care Isaias Maria Elena 17343.1.1 it y of 3.104.2.7 [place] .3.145339 Medica l .8 [place] 2022-02-10 2022-02-16 Inpatient X FRANK [facility] FAVIO [id number] Univers 22:59:00 19:27:00 TOMY ity of [facility] 2022-02-10 2022-02-16 Hospital Reilly Means 1.2.840.1 [id number] Univers 22:59:00 19:27:00 Encounter Ofe Shields 63059.1.1 ity of [place] 3.104.2.7 [place] .3.809700 Medica [place] .8 [place] 2022-02-11 2022-02-11 Telephone [place], 1.2.840.2 [id number] Univers 00:00:00 00:00:00 Santiago 29989.1.1 ity of 3.104.2.7 [place] .3.659618 Medica l .8 [place] 2022-02-10 2022-02-10 Travel 1.2.840.1 1.2.362.170 [id number] Univers 00:00:00 00:00:00 83548.1.1 350.1.13.10 ity of 3.104.2.7 4[place].3.698 [place] .3.182824 084.8 Medica l .8 [place] 2022-01-30 2022-01-30 Telephone [place], 1.2.840.0 [id number] Univers 00:00:00 00:00:00 Santiago 46680.1.1 ity of 3.104.2.7 [place] .3.857932 Medica l .8 [place] 2022-01-06 2022-01-06 Orders Doctor FERMIN 1.2.840.114 [id number] Univers 00:00:00 00:00:00 Only Unassigned, JACKELINE 350.1.13.10 ity of [facility] 4.2.7.2.686 [place] as [id number] [facility] [address] [place] 2021-12-25 2021-12-25 Orders Doctor FERMIN 1.2.840.114 [id number] Univers 00:00:00 00:00:00 Only Unassigned, JACKELINE 350.1.13.10 ity of [facility] 4.2.7.2.686 [place] as [id number] [facility] [address] [place] 2021-12-12 2021-12-13 Emergency X Bill COLES [facility] ERT [id number] Univers 23:53:00 01:52:00 ity of [facility] 2021-12-12 2021-12-13 Emergency Bill Coles [facility] 1.2.840.114 [id number] Univers 23:53:00 01:52:00 Kiersten BULLOCK 350.1.13.10 i ty [place] [id number] [facility] [address] 2021-11-20 2021-11-20 Profiler [facility] UNIVERSIT 1.2.840.114 [id number] Univers 09:45:00 10:00:00 Visit [facility] 350.1.13.10 ity of [place] 4[place] [id number] [facility] [address] 2021-11-20 2021-11-20 Office [facility] 1.2.768.274 [id number] Univers 08:30:00 09:00:00 Visit [facility] 350.1.13.10 i ty of [facility] 4.2.7.2.[place] [id number] [facility] [address] 2021-11-20 2021-11-20 Outpatient [facility] [id number] Univers 08:30:00 08:30:00 [facility] 2021-11-20 2021-11-20 Outpatient R [facility] [id number] Univers 08:30:00 08:30:00 SANTIAGO barbosa [facility] 2021-11-20 2021-11-20 Outpatient R RONALD [facility] [id number] Univers 08:30:00 08:30:00 SANTIAGO barbosa [facility] 2021-11-20 2021-11-20 Outpatient R RONALD [facility] [id number] Univers 08:30:00 08:30:00 SANTIAGO barbosa [facility] 2021-10-24 2021-10-24 Emergency X WALKER [facility] ERT [id number] Univers 16:27:00 [facility] 2021-10[facility]24 Emergency X WALKER [facility] ERT [id number] Univers 16:27:00 22:26:00 CHARITY charlie [facility] 2021-10-24 2021-10-24 Emergency Reilly Means [facility] 1.2.840. 114 [id number] Univers 16:27:00 22:26:00 Charity Mcallister [place] 350.1.13.10 ity [facility] 4.2.7.2.686 [facility] [id number] [address] 2021-10-23 2021-10-24 Emergency X WALKER [facility] ERT [id number] Univers 20:22:00 02:57:[address] [facility] 2021-10-23 2021-10-24 [facility] 1.2.477.564 [id number] Univers 20:22:00 02:57:00 Charity Bach [place] 350.1.13.10 ity [facility] 4.2.7.2.686 [facility] [id number] [address] 2021-09-07 2021-09-07 Outpatient R SELF, [facility] [id number] Univers 08:00:00 08:00:00 GADIEL barbosa o f [facility] 2021-09-07 2021-09-07 Outpatient R SELF, [facility] [id number] Univers 08:00:00 08:00:00 GADIEL ity o f [facility] 2021-08-21 2021-08-21 Outpatient R [facility] [id number] Univers 10:45:00 10:45:00 SANTIAGO barbosa [facility] 2021-08-21 2021-08-21 Profiler Santiago Cardenas 1.2.840.1 [id number] Univers 10:45:00 10:45:00 Visit [facility] 16427.1.1 ity of 3.104.2.7 [place] .3.652512 Medica l .8 [place] 2021-08-21 2021-08-21 Office [place], 1.2.840.0 [id number] Univers 08:30:00 09:00:00 Visit Santiago 07044.1.1 ity of 3.104.2.7 [place] .3.470484 Medica l .8 [place] 2021-08-21 2021-08-21 Office [facility], [facility] [id number] Univers 08:30:00 09:00:00 Visit [place] [facility] 350.1.13.10 i ty of CLIN[place] 4[place] [id number] [facility] porfirio 089 [place] 2021-08-21 2021-08-21 Outpatient R [facility] [id number] Univers 08:30:00 08:30:00 SANTIAGO barbosa [facility] 2021-08-21 2021-08-21 Travel 1.2.840.1 [id number] Univers 00:00:00 00:00:00 07049.1.1 350.1.13.10 ity of 3.104.2.7 4.2.7.3.698 [place] .3.336814 084.8 Medica l .8 [place] 2021-08-14 2021-08-14 Telephone [place], 1.2.840.8 [id number] Univers 00:00:00 00:00:00 [place] 60162.1.1 ity of 3.104.2.7 [place] .3.678833 Medica l .8 [place] 2021-08-132021-08-13 Telephone [place], 1.2.840.3 [id number] Univers 00:00:00 00:00:00 Santiago 35630.1.1 [facility] 3.104.2.7 [facility]3.228354 [place] [address] [address] 2021-08-11 2021-08-11 Outpatient [facility] [id number] Univers 08:00:00 08:00:[address] [facility] 2021-08-05 2021-08-05 Inpatient RAUL StoneEDUARDO vegaCL OUTD [id number] [facility] 05:24:00 05:24:00 Mike 31 [facility] 2021-07-20 2021-07-20 Outpatient [facility] [id number] [facility] 10:00:00 10:00:00 [facility] 2021-07-14 2021-07-14 Office Pankaj, UTP 6400 1.2.840.114 13 [id number] [place] 08:45:00 09:34:[address] 350.1.13.58 Health 9.2.7.2.686 [id number] 1 2021-07-09 2021-07-09 Telephone Hematpour, UTP 6400 1.2.840.114 [id number] [place] 00:00:00 00:00:[address] 350.1.13.58 Health 9.2.7.2.686 [id number] 1 2021-07-09 2021-07-09 Telephone Hematpour, UTP 6400 1.2.840.114 [id number] [place] 00:00:00 00:00:[address] 350.1.13.58 Health 9.2.7.2.686 [id number] 1 2021-07-03 2021-07-03 Outpatient [facility] [id number] Univers 08:00:00 08:00:[address] [facility] 2021-06-17 2021-06-17 Inpatient RAUL LundEDUARDOCL INTE.02 [id number] [facility] 10:56:00 14:36:00 Mike 47 [facility] 2021-06-15 2021-06-15 Outpatient R SELF, [facility] [id number] Univers 10:15:00 11:07:21 GADIEL rodas [facility] 2021-06-15 2021-06-15 Outpatient R SELF, [facility] [id number] Univers 10:15:00 10:15:00 GADIEL rodas [facility] 2021-06-15 2021-06-15 Outpatient R SELF, [facility] [id number] Univers 10:15:00 10:15:00 GADIEL rodas [facility] 2021-06-15 2021-06-15 Orders Doctor 1.2.840.3 [id number] Univers 00:00:00 00:00:00 Only Unassigned, 71654.1.1 ity of [place] 3.104.2.7 [place] .3.213472 Medica l .8 [place] 2021-06-15 2021-06-15 Travel 1.2.840.1 1.2.708.569 4490 7719 Univers 00:00:00 00:00:00 64485.1.1 350.1.13.10 ity of 3.104.2.7 4.[place].3.698 [place] .3.076221 084.8 Medica l .8 [place] 2021-06-11 2021-06-11 Refill East, UNIVERSIT 1.2.969.904 8166 9185 Univers 00:00:00 00:00:00 [facility] 350.1.13.10 i ty of CLINICS 4.2.7.2.686 [place] 195.1930575 Medi porfirio 089 Branch 2021-06-11 2021-06-11 Refill East, 1.2.840.3 [id number] 185 Univers 00:00:00 00:00:00 Santiago 71963.1.1 ity of 3.104.2.7 [place] .3.752735 Medica l .8 [place] 2021-06-05 2021-06-05 Outpatient R EAST, [facility] [id number] Univers 09:00:00 09:00:00 SANTIAGO itcharlie of [facility] 2021-06-02 2021-06-02 Telephone East, UNIVERSIT 1.2.840.114 [id number] Univers 00:00:00 00:00:00 Santiago Y HEALTH 350.1.13.10 i ty of [facility] 4.2.7.2.[place] [id number] [facility] 089 [place] 2021-06-02 2021-06-02 Telephone East, 1.2.840.2 [id number] 903 [id number] Univers 00:00:00 00:00:00 Santiago 29244.1.1 ity of 3.104.2.7 [place] .3.425755 Medica l .8 [place] 2021-05-29 2021-05-29 Telephone East, 1.2.840.8 [id number] 902 [id number] Univers 00:00:00 00:00:00 Santiago 65926.1.1 ity of 3.104.2.7 [place] .3.092949 Medica l .8 [place] 2021-05-29 2021-05-29 Telephone East, 1.2.840.9 [id number] 902 [id number] Univers 00:00:00 00:00:00 Santiago 34958.1.1 ity of 3.104.2.7 [place] .3.021384 Medica l .8 [place] 2021-05-25 2021-05-25 Outpatient R RODO, [facility] [id number] Univers 08:00:00 08:00:00 GADIEL barbosa o f [facility] 2021-04-29 2021-04-29 Outpatient R LALA, [facility] [id number] Univers 08:00:00 08:00:00 NIKOLAI barbosa of [facility] 2021-04-28 2021-04-28 Telephone Hematporay, KIMBERLEY 6400 1.2.840.114 [id number] [place] 00:00:00 00:00:[address] 350.1.13.58 Health 9.2.7.2.686 [id number] 1 2021-04-28 2021-04-28 Telephone Chihara, 1.2.840.6 [id number] 21 [id number] Methodi 00:00:00 00:00:[address] 3.430.2.7 Hospit a .3.552811 l .8 2021-03-31 2021-03-31 Orders Carol Ann, 1.2.840.1 [id number] 21 [id number] Methodi 00:00:00 00:00:00 Only Sarai Lieberman 22309.1.1 979 s t 3.430.2.7 Hospit a .3.760180 l .8 2021-03-30 2021-03-30 Outpatient R RODO, [facility] [id number] Univers 08:45:00 08:45:00 GADIEL rodas [facility] 2021-03-24 2021-03-24 Telephone Jailyn, 1.2.840.6 [id number] 21 [id number] Methodi 00:00:00 00:00:[address] 3.430.2.7 Hospit a .3.190940 l .8 2021-02-13 2021-02-13 Telephone Ronald, 1.2.840.2 [id number] 876 68199 Univers 00:00:00 00:00:00 Santiago 12632.1.1 ity of 3.104.2.7 [place] 3.960324 Medica l .8 [place] 2021-01-28 2021-01-28 Outpatient R LALA, [facility] [id number] Univers 08:45:00 09:37:00 NIKOLAI barbosa of [facility] 2021-01-28 2021-01-28 Travel 1.2.840.1 1.2.263.839 6565 9777 Univers 00:00:00 00:00:00 27748.1.1 350.1.13.10 ity of 3.104.2.7 4.[place].7.3.698 [place] .3.899255 084.8 Medica l .8 [place] 2021-01-19 2021-01-19 Telephone Prabhu, 1.2.840.1 [id number] 2100 099290 Methodi 00:00:00 00:00:[address] 3.430.2.7 Hospit a .3.912732 l .8 2021-01-04 2021-01-04 Dmitry Bass, 1.2.840.1 [id number] 77217 696 Univers 00:00:00 00:00:00 (Out) Dagoberto H 76618.1.1 ity of 3.104.2.7 [place] .3.825434 Medica l .8 Branch 2021-01-04 2021-01-04 Letter Shelia, 1.2.840.3 [id number] 42192 696 Univers 00:00:00 00:00:00 (Out) Dagoberto H 98326.1.1 ity of 3.104.2.7 [place] .3.740173 Medica l .8 Branch 2021-01-03 2021-01-03 Dmitry Bass, 1.2.840.2 [id number] 90043 790 Univers 00:00:00 00:00:00 (Out) Dagoberto H 49196.1.1 ity of 3.104.2.7 [place] .3.341832 Medica l .8 [place] 2021-01-03 2021-01-03 Dmitry Bass, 1.2.840.8 [id number] 15434 790 Univers 00:00:00 00:00:00 (Out) Dagoberto H 23983.1.1 ity of 3.104.2.7 [place] .3.959667 Medica l .8 [place] 2021-01-02 2021-01-02 Outpatient R [facility] [id number] Univers 13:40:00 13:40:00 ity of [facility] 2021-01-02 2021-01-02 Laboratory [place] Franks 1.2.840.3 [id number] [id number] Univers 12:14:13 12:57:34 Only Lab, [place] 78523.1.1 ity of 3.104.2.7 [place] .3.826318 Medica l .8 [place] 2021-01-02 2021-01-02 Laboratory [place] Franks 1.2.840.7 [id number] [id number] Univers 12:14:13 12:57:34 Only Lab, [place] 13899.1.1 ity of 3.104.2.7 [place] .3.307233 Medica l .8 Branch 2021-01-02 2021-01-02 Travel 1.2.840.1 1.2.202.194 0782 2306 Univers 00:00:00 00:00:00 94575.1.1 350.1.13.10 ity of 3.104.2.7 4.2.7.3.698 [place] .3.654943 084.8 Medica l .8 [place] 2021-01-02 2021-01-02 Letter Doctor 1.2.840.8 [id number] 37543 948 Univers 00:00:00 00:00:00 (Out) Unassigned, 58744.1.1 ity of [place] 3.104.2.7 [place] .3.717618 Medica l .8 Branch 2021-01-02 2021-01-02 Letter Doctor 1.2.840.8 [id number] [id number] 946 Univers 00:00:00 00:00:00 (Out) Unassigned, 99445.1.1 ity of [place] 3.104.2.7 [place] .3.348800 Medica l .8 Branch 2021-01-02 2021-01-02 Travel 1.2.840.1 1.2.899.707 1404 2306 Univers 00:00:00 00:00:00 94293.1.1 350.1.13.10 ity of 3.104.2.7 4.2.7.3.698 [place] .3.235693 084.8 Medica l .8 Branch 2021-01-02 2021-01-02 Letter Doctor 1.2.840.7 [id number] 48007 948 Univers 00:00:00 00:00:00 (Out) Unassigned, 26254.1.1 ity of [place] 3.104.2.7 [place] .3.877244 Medica l .8 Branch 2021-01-02 2021-01-02 Letter Doctor 1.2.840.5 [id number] 946 Univers 00:00:00 00:00:00 (Out) Unassigned, 73581.1.1 ity of [place] 3.104.2.7 [place] .3.825097 Medica l .8 Branch 2020-12-22 2020-12-22 Telephone Beltran, 1.2.840.3 [id number] 862 78704 Univers 00:00:00 00:00:00 Rossandynda R 87606.1.1 i ty of 3.104.2.7 [place] .3.956837 Medica l .8 Branch 2020-12-22 2020-12-22 Telephone Beltran, 1.2.840.9 [id number] 862 78617 Univers 00:00:00 00:00:00 Eligionda R 09103.1.1 i ty of 3.104.2.7 [place] .3.790773 Medica l .8 [place] 2020-12-12 2020-12-12 Office Hematpour, UTP 6400 1.2.840.114 12 [id number] [place] 07:42:02 08:18:50 [facility] 350.1.13.58 Health 9.2.7.2.686 300.9211396 1 2020-12-12 2020-12-12 Office Hematpour, UTP 6400 1.2.840.114 12 [id number] 07:42:02 08:18:50 [facility] 350.1.13.58 9.2.7.2.686 382.9870533 1 2020-12-09 2020-12-09 Telephone [facility], 1.2.840.1 [id number] Methodi 00:00:00 00:00:00 Sarai Lieberman 79170.1.1 316 s t 3.430.2.7 Hospit a .3.715659 l .8 2020-12-08 2020-12-08 [facility], 1.2.840.1 [id number] 2100 153143 Methodi 12:35:54 23:59:00 Encounter Ray 76725.1.[address] 3.430.2.7 Hospit a .3.640225 l .8 2020-12-08 2020-12-08 Lab Jailyn, 1.2.840.1 [id number] 27929 54181 Methodi 17:25:00 17:30:[address] 3.430.2.7 Hospit a .3.475879 l .8 2020-12-08 2020-12-08 Office Jailyn, 1.2.840.1 [id number] 14912 80366 Methodi 10:30:00 11:39:56 Visit Ray 02126.1.[address] 3.430.2.7 Hospit a .3.902441 l .8 2020-12-08 2020-12-08 Travel 1.2.840.1 1.2.178.304 9849 650502 Methodi 00:00:00 00:00:[address] 3.430.2.7 0.2.7.3.698 Ho spita .3.942907 084.8 l .8 2020-12-02 2020-12-02 Profiler Santiago Cardenas 1.2.840.1 [id number] Univers 10:20:06 10:36:19 Visit [facility] 81055.1.1 ity of 3.104.2.7 [place] .3.740480 Medica l .8 [place] 2020-12-02 2020-12-02 Profiler Santiago Cardenas 1.2.840.1 [id number] Univers 10:20:06 10:36:19 Visit [facility] 61820.1.1 ity of 3.104.2.7 [place] .3.292502 Medica l .8 [place] 2020-12-02 2020-12-02 Profiler [facility] UNIVERSIT 1.2.840.114 8 [id number] 10:20:06 10:36:19 Visit HEALTH 350.1.13.10 CLINICS 4.2.7.2.686 140.2906346 316 2020-12-02 2020-12-02 Office Ronald, 1.2.840.9 [id number] 40177 528 Univers 08:31:37 09:01:37 Visit Santiago 58897.1.1 ity of 3.104.2.7 [place] .3.817540 Medica l .8 [place] 2020-12-02 2020-12-02 Outpatient R [facility] [id number] Univers 09:00:00 09:00:00 SANTIAGO ity of [facility] 2020-11-25 2020-11-25 Office Beltran, 1.2.840.3 [id number] 865 Univers 11:06:30 11:58:14 Visit Amarilisjolie Hairtson 01600.1.1 i ty of 3.104.2.7 [place] .3.401552 Medica l .8 [place] 2020-11-25 2020-11-25 Office Beltran, 1.2.840.8 [id number] 88135 865 Univers 11:06:30 11:58:14 Visit Amarilisjolie Hairston 96045.1.1 i ty of 3.104.2.7 [place] .3.640273 Medica l .8 [place] 2020-11-25 2020-11-[address] [facility] 1.2.840.114 [id number] 65 11:06:30 11:58:14 Visit Devinmaria elena Hairston COLON THERAPIST 350.1.13.10 REGIONAL 4.2.7.2.686 MATERNAL 706.1533333 & CHILD [address] [place] [address] 2020-11-25 2020-11-25 Outpatient R [facility] [id number] Univers 11:00:00 11:00:00 ity of [facility] 2020-11-25 2020-11-25 Telephone Beltran, 1.2.840.7 [id number] 855 13045 Univers 00:00:00 00:00:00 Robbi Marika 58399.1.1 i ty of 3.104.2.7 [place] .3.563138 Medica l .8 [place] 2020-11-25 2020-11-25 Refill [facility], 1.2.840.1 [id number] 35587 592 Univers 00:00:00 00:00:00 Santiago 28295.1.1 ity of 3.104.2.7 [place] .3.706360 Medica l .8 Branch 2020-11-25 2020-11-25 Travel 1.2.840.1 1.2.878.952 0844 0247 Univers 00:00:00 00:00:00 62076.1.1 350.1.13.10 ity of 3.104.2.7 4.2.7.3.698 [place] .3.154443 084.8 Medica l .8 [place] 2020-11-25 2020-11-25 Orders Doctor 1.2.840.2 [id number] 064 Univers 00:00:00 00:00:00 Only Unassigned, 23329.1.1 ity of [place] 3.104.2.7 [place] .3.543826 Medica l .8 Branch 2020-11-25 2020-11-25 Telephone Beltran, 1.2.840.0 [id number] 855 11334 Univers 00:00:00 00:00:00 Roshundmaria elena R 64072.1.1 i ty of 3.104.2.7 [place] .3.242674 Medica l .8 Branch 2020-11-25 2020-11-25 Refill East, 1.2.840.7 [id number] 02805 592 Univers 00:00:00 00:00:00 Santiago 27919.1.1 ity of 3.104.2.7 [place] .3.985443 Medica l .8 [place] 2020-11-25 2020-11-25 Travel 1.2.840.1 1.2.190.670 0805 0247 Univers 00:00:00 00:00:00 32598.1.1 350.1.13.10 ity of 3.104.2.7 4.2.7.3.698 [place] .3.411223 084.8 Medica l .8 [place] 2020-11-25 2020-11-25 Orders Doctor 1.2.840.3 [id number] 18569 064 Univers 00:00:00 00:00:00 Only Unassigned, 82465.1.1 ity of [place] 3.104.2.7 [place] .3.355477 Medica [address] 2020-11-25 2020-11-25 [facility] 1.2.993.957 5136 4592 00:00:00 00:00:00 [facility] 350.1.13.10 [facility] 4.2.7.2.686 [id number] 089 2020-11-25 2020-11-25 [facility] 1.2.932.075 2916 0821 00:00:00 00:00:00 Robbi Hairston COLON THERAPIST 350.1.13.10 [facility] 4.2.7.2.686 MATERNAL 355.6068790 & CHILD [address] [place] [address] 2020-11-14 2020-11-14 Abstract Calrk, 1.2.840.1 [id number] 56649 16861 Methodi 00:00:00 00:00:[address] 3.430.2.7 Hospit a .3.676024 l .8 2020-11-14 2020-11-14 Telephone Clark 1.2.840.1 [id number] 2100 102905 Methodi 00:00:00 00:00:[address] 3.430.2.7 Hospit a .3.121349 l .8 2020-11-12 2020-11-12 Outpatient [facility] [id number] Univers 08:30:00 08:30:00 SANTIAGO ity of [facility] 2020-11-07 2020-11-07 Telephone Agustina Ortiz 6400 1.2.840.11 4 [id number] [place] 00:00:00 00:00:[address] 350.1.13.58 [facility] 9.2.7.2.686 544.2113453 1 2020-11-07 2020-11-07 Telephone KIMBERLEY Ortiz 6400 1.2.840.114 124 [id number] 00:00:00 00:00:[address] 350.1.13.58 9.2.7.2.686 216.7331878 1 2020-10-31 2020-10-31 Office MaryjanepoKIMBERLEY bell 6400 1.2.840.114 12 [id number] [place] 07:54:00 09:45:[address] 350.1.13.58 Health 9.2.7.2.686 [id number] 1 2020-10-30 2020-10-30 Abstract Rody Maguire UTP 6400 1.2.840.1 14 [id number] [place] 00:00:00 00:00:[address] 350.1.13.58 Health 9.2.7.2.686 [id number] 1 2020-10-29 2020-10-29 Refill East, 1.2.840.3 [id number] 48593 400 Univers 00:00:00 00:00:00 Santiago 21541.1.1 ity of 3.104.2.7 [place] .3.991733 Medica l .8 [place] 2020-10-29 2020-10-29 Refill East, 1.2.840.2 [id number] 34361 400 Univers 00:00:00 00:00:00 Santiago 64058.1.1 ity of 3.104.2.7 [place] .3.482401 Medica l .8 [place] 2020-10-27 2020-10-27 Telephone Jailyn, 1.2.840.9 [id number] 21 [id number] Methodi 00:00:00 00:00:[address] 3.430.2.7 Hospit a .3.136255 l .8 2020-10-24 2020-10-24 Telephone Clark, 1.2.840.1 [id number] 2100 811798 Methodi 00:00:00 00:00:[address] 3.430.2.7 Hospit a .3.866524 l .8 2020-10-22 2020-10-22 Outpatient R SELF, [facility] [id number] 868 Univers 13:00:00 13:00:00 GADIEL rodas [facility] 2020-10-22 2020-10-22 Travel 1.2.840.1 1.2.073.758 4083 3839 Univers 00:00:00 00:00:00 17285.1.1 350.1.13.10 ity of 3.104.2.7 4.2.7.3.698 [place] .3.703277 084.8 Medica l .8 [place] 2020-10-22 2020-10-22 Travel 1.2.840.1 1.2.805.248 1766 3839 Univers 00:00:00 00:00:00 09620.1.1 350.1.13.10 ity of 3.104.2.7 4.2.7.3.698 [place] .3.149487 084.8 Medica l .8 [place] 2020-10-13 2020-10-13 [facility] [id number] Univers 08:45:00 08:45:00 GADIEL rodas [facility] 2020-10-06 2020-10-12 Telemedici Chihara, 1.2.840.1 [id number] 21 [id number] Methodi 15:30:00 00:08:46 ne Ray 23882.1.[address] 3.430.2.7 Hospit a .3.809768 l .8 2020-09-30 2020-09-30 Telephone Chihara, 1.2.840.3 [id number] 21 [id number] Methodi 00:00:00 00:00:[address] 3.430.2.7 Hospit a .3.046540 l .8 2020-09-21 2020-09-21 Travel 1.2.840.1 1.2.400.381 5155 720248 Methodi 00:00:00 00:00:[address] 3.430.2.7 0.2.7.3.698 Ho spita .3.174943 084.8 l .8 2020-09-06 2020-09-06 [facility] 1.2.840.1 [id number] 33937 46485 Methodi 17:42:30 23:59:[address] 3.430.2.7 Hospit a .3.934386 l .8 2020-09-06 2020-09-06 [facility], 1.2.840.1 [id number] 2100 630486 Methodi 16:50:00 17:41:00 Encounter Ray [address]198.1.[address] 3.430.2.7 Hospit a .3.948370 l .8 2020-09-05 2020-09-05 [facility], 1.2.840.1 [id number] 2100 018479 Methodi 09:17:00 19:45:00 Encounter Ray [address]95.1.[address] 3.430.2.7 Hospit a .3.352339 l .8 2020-09-05 2020-09-05 Surgery [facility], 1.2.840.1 [id number] 91037 22823 Methodi 11:30:00 13:15:[address] 3.430.2.7 Hospit a .3.488100 l .8 2020-09-05 2020-09-05 Anesthesia [facility], 1.2.840.1 [id number] 272 [id number] Methodi 11:27:00 12:20:00 Event Lynnettevalentinadarrellthi 39190.1.1 243 s t V. 3.430.2.7 Hospit a .3.135223 l .8 2020-09-05 2020-09-05 Travel 1.2.840.1 1.2.630.057 9996 614645 Methodi 00:00:00 00:00:[address] 3.430.2.7 0.2.7.3.698 Ho spita .3.775374 084.8 l .8 2020-09-04 2020-09-04 Telephone Carol Ann, 1.2.840.1 [id number] Methodi 00:00:00 00:00:00 Sarai Lieberman 49732.1.1 762 s t 3.430.2.7 Hospit a .3.807078 l .8 2020-09-02 2020-09-02 Telephone Carol Ann, 1.2.840.9 [id number] Methodi 00:00:00 00:00:00 Sarai Lieberman 78854.1.1 344 s t 3.430.2.7 Hospit a .3.340971 l .8 2020-08-29 2020-08-30 Bedded [facility] [id number] 275 [facility] 10:20:00 14:10:00 Outpatient r [address] 2020-08-29 2020-08-30 Outpatient [facility] CAR 7500 [facility] 05:20:00 09:10:00 BEVERLY 2020-08-06 2020-08-06 Office [place], 1.2.840.2 [id number] 416 Univers 08:03:23 09:17:49 Visit Santiago 07439.1.1 ity of 3.104.2.7 [place] .3.936939 Medica l .8 [place] 2020-08-06 2020-08-06 [facility] [id number] Univers 08:30:00 08:30:00 SANTIAGO itcharlie of [facility] 2020-07-14 2020-07-14 Outpatient R [facility] [id number] Univers 09:30:00 09:30:00 GADIEL itcharlie o f [facility] 2020-07-14 2020-07-14 Travel 1.2.840.1 1.2.657.159 4059 2575 Univers 00:00:00 00:00:00 11699.1.1 350.1.13.10 ity of 3.104.2.7 4.2.7.3.698 [place] .3.236519 084.8 Medica l .8 [place] 2020-07-14 2020-07-14 Orders Doctor 1.2.840.5 [id number] 309 Univers 00:00:00 00:00:00 Only Unassigned, 36651.1.1 ity of [place] 3.104.2.7 [place] .3.331765 Medica l .8 [place] 2020-06-16 2020-06-16 Outpatient R [facility], [facility] [id number] Univers 08:00:00 08:00:00 GADIEL barbosa o f [facility] 2020-06-06 2020-06-06 Telephone East, 1.2.840.6 [id number] 809 [id number] Univers 00:00:00 00:00:00 Santiago 75967.1.1 ity of 3.104.2.7 [place] .3.071328 Medica l .8 [place] 2020-06-04 2020-06-04 Profiler Santiago Cardenas 1.2.840.1 [id number] Univers 09:31:58 09:40:12 Visit [facility] 69271.1.1 ity of 3.104.2.7 [place] .3.956112 Medica l .8 [place] 2020-06-04 2020-06-04 Office [facility] 1.2.070.145 5681 9729 Univers 08:13:41 09:28:25 Visit Santiago [facility] 350.1.13.10 i ty of CLINICS 4.2.7.2.686 Richi bach [id number] [facility] porfirio 089 [place] 2020-06-04 2020-06-04 Outpatient R [facility] [id number] Univers 08:30:00 08:30:00 SANTIAGO barbosa of [facility] 2020-06-04 2020-06-04 Orders Doctor 1.2.840.2 [id number] Univers 00:00:00 00:00:00 Only Unassigned, 13457.1.1 ity of [place] 3.104.2.7 [place] .3.130879 Medica l .8 [place] 2020-05-19 2020-05-19 Telephone East, 1.2.840.9 [id number] Univers 00:00:00 00:00:00 [place] 22085.1.1 ity of 3.104.2.7 [place] .3.315404 Medica l .8 [place] 2020-04-24 2020-04-24 Telephone East, 1.2.840.4 [id number] Univers 00:00:00 00:00:00 [place] 62509.1.1 ity of 3.104.2.7 [place] .3.376323 Medica l .8 [place] 2020-04-14 2020-04-14 Outpatient R EAST, [facility] [id number] Univers 09:00:00 09:00:00 SANTIAGO ity of [facility] 2020-04-14 2020-04-14 Telephone East, 1.2.840.0 [id number] Univers 00:00:00 00:00:00 [place] 03686.1.1 ity of 3.104.2.7 [place] .3.663161 Medica l .8 [place] 2020-03-31 2020-03-31 Outpatient R EAST, [facility] [id number] Univers 08:30:00 08:30:00 SANTIAGO ity of [facility] 2020-03-03 2020-03-03 Outpatient R SELF, [facility] [id number] Univers 08:00:00 08:00:00 GADIEL maciely o f [facility] 2020-03-03 2020-03-03 Outpatient R SELF, [facility] [id number] Univers 08:00:00 08:00:00 GADILE ity o f [facility] 2020-03-03 2020-03-03 Travel 1.2.840.1 1.2.820.470 [id number] Univers 00:00:00 00:00:00 15856.1.1 350.1.13.10 ity of 3.104.2.7 4.[place].3.698 [place] .3.183569 084.8 Medica l .8 [place] 2020-02-06 2020-02-06 Telephone East, 1.2.840.5 [id number] Univers 00:00:00 00:00:00 [place] 64686.1.1 ity of 3.104.2.7 [place] .3.017180 Medica l .8 [place] 2020-01-26 2020-01-26 Emergency Caridad, 1.2.840.0 [id number] Univers 10:03:00 13:05:00 Cynise 49644.1.1 ity of 3.104.2.7 [place] .3.606913 Medica l .8 [place] 2020-01-26 2020-01-26 Travel 1.2.840.1 1.2.109.983 [id number] Univers 00:00:00 00:00:00 99239.1.1 350.1.13.10 ity of 3.104.2.7 4[place].3.698 [place] .3.646876 084.8 Medica l .8 [place] 2020-01-25 2020-01-25 [facility] [id number] Univers 08:30:00 08:30:00 SANTIAGO ity of [facility] 2020-01-25 2020-01-25 Telemedici [place], 1.2.840.3 [id number] Univers 07:36:49 08:06:49 ne Visit [place] 03084.1.1 ity of 3.104.2.7 [place] .3.800607 Medica l .8 [place] 2020-01-16 2020-01-16 [facility] [id number] Univers 08:00:00 08:00:00 SANTIAGO ity of [facility] 2020-01-16 2020-01-16 Telephone East, 1.2.840.2 [id number] Univers 00:00:00 00:00:00 [place] 79019.1.1 ity of 3.104.2.7 [place] .3.277136 Medica l .8 [place] 2020-01-14 2020-01-14 Outpatient R SELF, [facility] [id number] Univers 08:00:00 08:00:00 GADIEL vogel f [facility] 2019-12-31 2019-12-31 Outpatient R SELF, [facility] [id number] Univers 08:45:00 08:45:00 GADIEL vogel f [facility] 2019-10-17 2019-10-17 Outpatient R EAST, [facility] [id number] Univers 08:30:00 08:30:00 SANTIAGO ity [facility] 2019-10-12 2019-10-12 Outpatient R EAST, [facility] [id number] Univers 13:00:00 13:00:00 SANTIAGO ity [facility] 2019-10-12 2019-10-12 Telemedici [place], 1.2.840.2 [id number] Univers 07:38:30 08:08:30 ne Visit [place] 23667.1.1 ity of 3.104.2.7 [place] .3.721289 Medica l .8 [place] 2019-10-08 2019-10-08 Outpatient R SELF, [facility] [id number] Univers 10:15:00 10:15:00 GADIEL barbosa o f [facility] 2019-10-03 2019-10-03 Case Xiao, 1.2.840.6 [id number] Univers 00:00:00 00:00:00 Management Michael Corbin 38842.1.1 i ty of 3.104.2.7 [place] .3.660026 Medica l .8 [place] 2019-09-27 2019-09-27 Telephone East, 1.2.840.0 [id number] Univers 00:00:00 00:00:00 [place] 45018.1.1 ity of 3.104.2.7 [place] .3.626542 Medica l .8 [place] 2019-09-04 2019-09-04 Refill [place], 1.2.840.5 [id number] Univers 00:00:00 00:00:00 [place] 19760.1.1 ity of 3.104.2.7 [place] .3.556453 Medica l .8 [place] 2019-07-24 2019-07-24 Outpatient R EAST, [facility] [id number] Univers 08:30:00 08:30:00 SANTIAGO ity [facility] 2019-07-17 2019-07-17 Outpatient R EAST, [facility] [id number] Univers 10:00:00 10:00:00 SANTIAGO ity [facility] 2019-06-15 2019-06-15 Telephone East, 1.2.840.2 [id number] Univers 00:00:00 00:00:00 [place] 14758.1.1 ity of 3.104.2.7 [place] .3.332677 [facility] [place] 2019-06-13 2019-06-13 Telephone Team, [facility] 1.2.840.0 [id number] Univers 00:00:00 00:00:00 Health 25109.1.1 [place].2.7 [place] .3.813[place] [facility] [facility] [place] 2019-05-10 2019-05-10 Refill Ronald, 1.2.840.9 [id number] Univers 00:00:00 00:00:00 [place] 35795.1.1 ity of 3.104.2.7 [place] .3.111305 [facility] [place] 2019-05-09 2019-05-09 Refill Ronald, 1.2.840.9 [id number] Univers 00:00:00 00:00:00 [place] 04745.1.1 ity of 3.104.2.7 [place] .3.850075 [facility] .[facility] [place] 2019-04-30 2019-04-30 Outpatient R SELF, [facility] [id number] Univers 10:15:00 10:33:05 GADIEL rodas [facility] 2019-04-18 2019-04-18 Profiler [place] Cardenas 1.2.840.1 [id number] Univers 10:00:39 10:44:31 Visit [facility] 02925.1.1 ity of 3.104.2.7 [place] .3.034598 [facility] [place] 2019-04-18 2019-04-18 Outpatient R RONALD [facility] [id number] Univers 10:00:00 10:44:31 SANTIAGO itcharlie of [facility] 2019-04-18 2019-04-18 Office Ronald, 1.2.840.9 [id number] Univers 08:27:44 09:53:27 Visit Santiago 19248.1.1 ity of 3.104.2.7 [place] .3.550142 [facility] [place] 2019-04-18 2019-04-18 Orders Doctor 1.2.840.2 [id number] Univers 00:00:00 00:00:00 Only Unassigned, 96698.1.1 ity of [place] 3.104.2.7 [place] .3.882967 [facility] .[facility] [place] 2019-04-11 2019-04-11 Refill [place], 1.2.840.1 [id number] Univers 00:00:00 00:00:00 [place] 24505.1.1 ity of 3.104.2.7 [place] .3.171418 [facility] .[facility] [place] 2019-04-09 2019-04-09 Refill [place], 1.2.840.2 [id number] Univers 00:00:00 00:00:00 [place] 18169.1.1 ity of 3.104.2.7 [place] .3.385318 [facility] .[facility] [place] 2019-04-03 2019-04-03 Telephone Team, [facility] 1.2.840.1 [id number] Univers 00:00:00 00:00:00 Health 40708.1.1 [place] .3.316[place] [facility] [facility] [place] 2019-03-27 2019-03-27 Telephone Self, 1.2.840.6 [id number] Univers 00:00:00 00:00:00 Gadiel 87619.1.1 ity of 3.104.2.7 [place] .3.443505 [facility] [place] 2019-01-17 2019-01-17 Office [place], 1.2.840.5 [id number] Univers 07:37:21 10:32:51 Visit Santiago 36787.1.1 ity of 3.104.2.7 [place] .3.358118 [facility] [place] 2019-01-04 2019-01-12 Office Eveilne Hansen 1.2.840.8 [id number] Univers 11:19:32 11:08:05 Visit Mariela 88757.1.1 ity of 3.104.2.7 [place] .3.553089 [facility] .8 [place] 2019-01-10 2019-01-10 Telephone Stanislav, 1.2.840.3 [id number] Univers 00:00:00 00:00:00 Eladio Inman 53269.1.1 ity of 3.104.2.7 [place] .3.253218 [facility] [place] 2018-12-18 2018-12-18 Office Alexisryan, 1.2.840.8 [id number] Univers 08:48:45 09:13:43 Visit Leyda .1.1 it y of 3.104.2.7 [place] .3.805459 [facility]ica l .8 [place] 2018-10-30 2018-10-30 Telephone [place], 1.2.840.1 [id number] Univers 00:00:00 00:00:00 [place] 02494.1.1 ity of 3.104.2.7 [place] .3.388704 Medica l .8 [facility] 2018-10-23 2018-10-23 Orders Doctor 1.2.840.4 [id number] Univers 00:00:00 00:00:00 Only Unassigned, 84386.1.1 ity of [place] 3.104.2.7 [place] .3.131742 Med[facility] l .8 [place] 2018-10-23 2018-10-23 Nurse Selvin, 1.2.840.0 [id number] Univers 00:00:00 00:00:00 Triage Stefanie 18164.1.1 ity of 3.104.2.7 [place] .3.824502 Med[facility] l .8 [facility] 2018-10-23 2018-10-23 Telephone Self, 1.2.840.2 [id number] Univers 00:00:00 00:00:00 Gadiel 23681.1.1 ity of 3.104.2.7 [place] .3.903085 Medica l .8 [place] 2018-10-20 2018-10-20 Telephone Self, 1.2.840.3 [id number] Univers 00:00:00 00:00:00 Gadiel 20181.1.1 ity of 3.104.2.7 [place] .3.626579 Medica l .8 [facility] Results Test Description Test Time Test Comments Results Result Comments Source COMP. METABOLIC PANEL (37232) 2022-05-06 22:42:55 Test Item Value Reference Range Interpretation Comme nts NA (test code = 8447331331) 137 mmol/L 135-145 K (test code = 8558844607) 3.2 mmol/L 3.5-5.0 L CL (test code = 5423452537) 100 mmol/L 98-108 CO2 TOTAL (test code = 0192803511) 23 mmol/L 23-31 AGAP (test code = 0552423075) 2-16 BUN (test code = 2561383832) 41 mg/dL 7-23 H GLUCOSE (test code = 9153394965) 98 mg/dL 70-110 CREATININE (test code = 1.55 mg/dL 0.50-1.04 H 1440222711) TOTAL BILI (test code = 0.8 mg/dL 0.1-1.6 5402239618) CALCIUM (test code = 0115931692) 8.3 mg/dL 8.6-10.6 L T PROTEIN (test code = 6633985048) 6.9 g/dL 6.3-8.2 ALBUMIN (test code = 0360157436) 3.9 g/dL 3.5-5.0 ALK PHOS (test code = 1999523466) 89 U/L 34-122 ALTv (test code = 1742-6) 101 U/L 5-35 H AST(SGOT) (test code = 1477315906) 203 U/L 13-40 H eGFR (test code = 4718928588) mL/min/1.73m2 KYLE (test code = KYLE) Association [...] tests). Lab Interpretation (test code = Abnormal 10436-2) [facility] WITH [id number] 22:33:52 Test Item Value Reference Range Interpretation Comments WBC (test code = See_Comment L [Automated 7390-2) message] The sy stem which generated this result transmitted reference range : 4.30 - 11.10 10*3/?L. The reference range was not used to interpret this result as normal/abnormal . RBC (test code = See_Comment [Automated 489-8) message] The sy stem which generated this [...] RDW-SD (test code = 46.3 fL 39.0-49.9 91634-2) RDW-CV (test code = 13.5 % 12.0-15.5 788-0) PLT (test code = See_Comment L [Automated 777-3) message] The sy stem which generated this result transmitted reference range : 166 - 358 10*3/ ?L. The reference r abbey was not used to interpret this result as normal/abnormal . MPV (test code = 9.5 fL 9.5-12.9 78218-0) NRBC/100 WBC (test See_Comment [Automat ed code = 0262475161) message] The system which generated this result transmitted reference range : 0.0 - 10.0 /100 WBCs. The refer ence range was not u sed to interpret th is result as normal/abnormal . NRBC x10^3 (test code See_Comment [Auto mated = 2978727876) message] The s ystem which generated this result transmitted reference range : 10*3/?L. The reference range was not used to interpret this result as normal/abnormal . GRAN MAT (NEUT) % 58.3 % (test code = 770-8) IMM GRAN % (test code 0.80 % = 9589110977) LYMPH % (test code = 28.1 % 736-9) MONO % (test code = 12.0 % 5905-5) EOS % (test code = 0.5 % 713-8) BASO % (test code = 0.3 % 706-2) GRAN MAT x10^3(ANC) 2.29 10*3/uL 1.88-7.09 (test code = 8455046127) IMM GRAN x10^3 (test 0.03 10*3/uL 0.00-0.06 code = 7015145474) LYMPH x10^3 (test code 1.10 10*3/uL 1.32-3.29 L = 731-0) MONO x10^3 (test code 0.47 10*3/uL 0.33-0.92 = 742-7) EOS x10^3 (test code = 0.03-0.39 L 711-2) BASO x10^3 (test code 0.01-0.07 = 704-7) Lab Interpretation Abnormal (test code = 29694-5) [facility] METABOLIC PANEL (NA, K, CL, CO2, GLUCOSE, BUN, CREATININE, CA)2022-04-22 21:43:42 Test Item Value Reference Range Interpretation Comments NA (test code = 142 mmol/L 135-145 5868528492) K (test code = 3.5 mmol/L 3.5-5.0 0151855237) CL (test code = 106 mmol/L 98-108 4963225632) CO2 TOTAL (test code = 26 mmol/L 23-31 3224634032) AGAP (test code = 2-16 4203700670) BUN (test code = 29 mg/dL 7-23 H 2387725512) GLUCOSE (test code = 84 mg/dL 70-110 4567867545) CREATININE (test code = 1.16 mg/dL 0.50-1.04 H 9472471151) CALCIUM (test code = 8.2 mg/dL 8.6-10.6 L 8247716515) eGFR (test code = mL/min/1.73m2 2567569525) KYLE (test code = KYLE) Association of [...] tests). Lab Interpretation Abnormal (test code = 36488-8) [facility] WITH [id number] 21:33:01 Test Item Value Reference Range Interpretation [...] (test code = 50.7 fL 39.0-49.9 H 60233-4) RDW-CV (test code = 14.6 % 12.0-15.5 788-0) PLT (test code = See_Comment L [Automated 777-3) message] The sy stem which generated this result transmitted reference range : 166 - 358 10*3/ ?L. The reference r abbey was not used to interpret this result as normal/abnormal . MPV (test code = 8.8 fL 9.5-12.9 L 74225-3) NRBC/100 WBC (test See_Comment [Automat ed code = 3630974745) message] The system which generated this result transmitted reference range : 0.0 - 10.0 /100 WBCs. The refer ence range was not u sed to interpret th is result as normal/abnormal . NRBC x10^3 (test code See_Comment [Auto mated = 9333590257) message] The s ystem which generated this result transmitted reference range : 10*3/?L. The reference range was not used to interpret this result as normal/abnormal . GRAN MAT (NEUT) % 70.9 % (test code = 770-8) IMM GRAN % (test code 0.50 % = 3338337990) LYMPH % (test code = 17.4 % 736-9) MONO % (test code = 9.0 % 5905-5) EOS % (test code = 1.7 % 713-8) BASO % (test code = 0.5 % 706-2) GRAN MAT x10^3(ANC) 4.60 10*3/uL 1.88-7.09 (test code = 4211516951) IMM GRAN x10^3 (test 0.03 10*3/uL 0.00-0.06 code = 9309100638) LYMPH x10^3 (test code 1.13 10*3/uL 1.32-3.29 L = 731-0) MONO x10^3 (test code 0.58 10*3/uL 0.33-0.92 = 742-7) EOS x10^3 (test code = 0.11 10*3/uL 0.03-0.39 711-2) BASO x10^3 (test code 0.03 10*3/uL 0.01-0.07 = 704-7) Lab Interpretation Abnormal (test code = 99742-0) [id number]:01:07 Test Item Value Reference Range Interpretation Comments Blood Culture-Aerobic No organisms No growth Previo us (test code = 09134-3) isolated prelim inary verified result was Culture [...] Culture-Anaerobic isolated preliminar y (test code = 56127-1) verifi ed result was Culture In Progress [...] CDT Lab Interpretation Normal (test code = 22560-2) [facility] CULTURE [id number] 06:01:07 Test Item Value Reference Range Interpretation Comments Blood Culture-Aerobic No organisms No growth Previo us (test code = 85293-9) isolated prelim inary verified result was Culture [...] Culture-Anaerobic isolated preliminar y (test code = 84523-8) verifi ed result was Culture In Progress [...] CDT Lab Interpretation Normal (test code = 29037-7) [facility] CULTURE [id number] 06:01:07 Test Item Value Reference Range Interpretation Comments Blood Culture-Aerobic No organisms No growth Previo us (test code = 67012-3) isolated prelim inary verified result was Culture [...] Culture-Anaerobic isolated preliminar y (test code = 28319-6) verifi ed result was Culture In Progress [...] CDT Lab Interpretation Normal (test code = 86248-5) [facility] [id number] 10:49:10 Test Item Value Reference Range Interpretation Comments NT-proBNP (test code 2660 pg/mL See_Comment H [Autom ated = 2548141800) message] The system which generated this result transmitted reference range : <=125. The reference range was not used to interpret this result as normal/abnormal . KYLE (test code = KYLE) Biotin has been reported to cause a negative bias, interpret results relative to patient's use of biotin. Lab Interpretation Abnormal (test code = 69852-8) [facility] [id number] 10:49:10 Test Item Value Reference Range Interpretation Comments NT-proBNP (test code 2660 pg/mL See_Comment H [Autom ated = 7566383858) message] The system which generated this result transmitted reference range : <=125. The reference range was not used to interpret this result as normal/abnormal . KYLE (test code = KYLE) Biotin has been reported to cause a negative bias, interpret results relative to patient's use of biotin. Lab Interpretation Abnormal (test code = 62540-4) [facility] (NA, K, CL, CO2, GLUCOSE, BUN, CREATININE, CA)2022-02-15 10:44:07 Test Item Value Reference Range Interpretation Comments NA (test code = 134 mmol/L 135-145 L 9083435540) K (test code = 3.2 mmol/L 3.5-5 L 6993317064) CL (test code = 98 mmol/L 98-108 8447183680) CO2 TOTAL (test code = 27 mmol/L 23-31 9597496878) AGAP (test code = 2-16 4079974355) BUN (test code = 19 mg/dL 7- 6531245143) GLUCOSE (test code = 102 mg/dL 70-110 0828547025) CREATININE (test code = 0.95 mg/dL 0.5-1.04 2896585522) CALCIUM (test code = 8.5 mg/dL 8.6-10.6 L 4169744451) eGFR (test code = mL/min/1.73m2 9265993057) KYLE (test code = KYLE) Association of [...] tests). Lab Interpretation Abnormal (test code = 73959-2) [facility] 10:44:07 Test Item Value Reference Range Interpretation Comments MAGNESIUM (test code = 0152413463) 1.8 mg/dL 1.7-2.4 Lab Interpretation (test code = Normal 47039-6) [facility] 10:44:07 Test Item Value Reference Range Interpretation Comments MAGNESIUM (test code = 3652336816) 1.8 mg/dL 1.7-2.4 Lab Interpretation (test code = Normal 90461-4) [facility] METABOLIC PANEL (NA, K, CL, CO2, GLUCOSE, BUN, CREATININE, CA)2022-02-15 10:44:07 Test Item Value Reference Range Interpretation Comments NA (test code = 134 mmol/L 135-145 L 0353799914) K (test code = 3.2 mmol/L 3.5-5.0 L 7894979444) CL (test code = 98 mmol/L 98-108 7227593194) CO2 TOTAL (test code = 27 mmol/L 23-31 2795886921) AGAP (test code = 2-16 6790219987) BUN (test code = 19 mg/dL 7-23 4608138626) GLUCOSE (test code = 102 mg/dL 70-110 4488793713) CREATININE (test code = 0.95 mg/dL 0.50-1.04 8904368450) CALCIUM (test code = 8.5 mg/dL 8.6-10.6 L 2271362537) eGFR (test code = mL/min/1.73m2 5027954050) KYLE (test code = KYLE) Association of [...] tests). Lab Interpretation Abnormal (test code = 23480-4) [facility] WITH [id number] 10:12:06 Test Item Value Reference Range Interpretation [...] RDW-SD (test code = 47.8 fL 39-49.9 61146-6) RDW-CV (test code = 15.2 % 12-15.5 788-0) PLT (test code = See_Comment L [Automated 777-3) message] The sy stem which generated this result transmitted reference range : 166 - 358 10*3/ ?L. The reference r abbey was not used to interpret this result as normal/abnormal . MPV (test code = 8.9 fL 9.5-12.9 L 37781-4) NRBC/100 WBC (test See_Comment [Automat ed code = 4160470752) message] The system which generated this result transmitted reference range : 0.0 - 10.0 /100 WBCs. The refer ence range was not u sed to interpret th is result as normal/abnormal . NRBC x10^3 (test code See_Comment [Auto mated = 6064650666) message] The s ystem which generated this result transmitted reference range : 10*3/?L. The reference range was not used to interpret this result as normal/abnormal . GRAN MAT (NEUT) % 65.9 % (test code = 770-8) IMM GRAN % (test code 0.30 % = 3162564213) LYMPH % (test code = 21.0 % 736-9) MONO % (test code = 10.1 % 5905-5) EOS % (test code = 2.4 % 713-8) BASO % (test code = 0.3 % 706-2) GRAN MAT x10^3(ANC) 2.49 10*3/uL 1.88-7.09 (test code = 4344371186) IMM GRAN x10^3 (test 0-0.06 code = 5297331975) LYMPH x10^3 (test code 0.79 10*3/uL 1.32-3.29 L = 731-0) MONO x10^3 (test code 0.38 10*3/uL 0.33-0.92 = 742-7) EOS x10^3 (test code = 0.09 10*3/uL 0.03-0.39 711-2) BASO x10^3 (test code 0.01-0.07 = 704-7) Lab Interpretation Abnormal (test code = 81668-1) [facility] WITH [id number] 10:12:06 Test Item Value Reference Range Interpretation [...] RDW-SD (test code = 47.8 fL 39.0-49.9 84507-1) RDW-CV (test code = 15.2 % 12.0-15.5 788-0) PLT (test code = See_Comment L [Automated 777-3) message] The sy stem which generated this result transmitted reference range : 166 - 358 10*3/ ?L. The reference r abbey was not used to interpret this result as normal/abnormal . MPV (test code = 8.9 fL 9.5-12.9 L 70778-1) NRBC/100 WBC (test See_Comment [Automat ed code = 2000727960) message] The system which generated this result transmitted reference range : 0.0 - 10.0 /100 WBCs. The refer ence range was not u sed to interpret th is result as normal/abnormal . NRBC x10^3 (test code See_Comment [Auto mated = 4317597552) message] The s ystem which generated this result transmitted reference range : 10*3/?L. The reference range was not used to interpret this result as normal/abnormal . GRAN MAT (NEUT) % 65.9 % (test code = 770-8) IMM GRAN % (test code 0.30 % = 4662188472) LYMPH % (test code = 21.0 % 736-9) MONO % (test code = 10.1 % 5905-5) EOS % (test code = 2.4 % 713-8) BASO % (test code = 0.3 % 706-2) GRAN MAT x10^3(ANC) 2.49 10*3/uL 1.88-7.09 (test code = 6997574951) IMM GRAN x10^3 (test 0.00-0.06 code = 8870914781) LYMPH x10^3 (test code 0.79 10*3/uL 1.32-3.29 L = 731-0) MONO x10^3 (test code 0.38 10*3/uL 0.33-0.92 = 742-7) EOS x10^3 (test code = 0.09 10*3/uL 0.03-0.39 711-2) BASO x10^3 (test code 0.01-0.07 = 704-7) Lab Interpretation Abnormal (test code = 21978-3) [facility] WITH [id number] 11:18:28 Test Item Value Reference Range Interpretation [...] RDW-SD (test code = 49.5 fL 39-49.9 11634-8) RDW-CV (test code = 15.5 % 12-15.5 788-0) PLT (test code = See_Comment L [Automated 777-3) message] The sy stem which generated this result transmitted reference range : 166 - 358 10*3/ ?L. The reference r abbey was not used to interpret this result as normal/abnormal . MPV (test code = 11.4 fL 9.5-12.9 82646-2) IPF % (test code = 8.7 % 1.3-7.7 H Platelet count 7871353306) measured by fluorescence method. NRBC/100 WBC (test See_Comment [Automat ed code = 5611535503) message] The system which generated this result transmitted reference range : 0.0 - 10.0 /100 WBCs. The refer ence range was not u sed to interpret th is result as normal/abnormal . NRBC x10^3 (test code See_Comment [Auto mated = 7641113420) message] The s ystem which generated this result transmitted reference range : 10*3/?L. The reference range was not used to interpret this result as normal/abnormal . GRAN MAT (NEUT) % 62.0 % (test code = 770-8) IMM GRAN % (test code 0.80 % = 5598273957) LYMPH % (test code = 22.2 % 736-9) MONO % (test code = 9.6 % 5905-5) EOS % (test code = 5.1 % 713-8) BASO % (test code = 0.3 % 706-2) GRAN MAT x10^3(ANC) 2.21 10*3/uL 1.88-7.09 (test code = 0741891255) IMM GRAN x10^3 (test 0.03 10*3/uL 0-0.06 code = 2026790967) LYMPH x10^3 (test code 0.79 10*3/uL 1.32-3.29 L = 731-0) MONO x10^3 (test code 0.34 10*3/uL 0.33-0.92 = 742-7) EOS x10^3 (test code = 0.18 10*3/uL 0.03-0.39 711-2) BASO x10^3 (test code 0.01-0.07 = 704-7) POLYCHROMASIA (test 2+ See_Comment [Automa arpit code = 89921-9) message] The system which generated this result [...] . Lab Interpretation Abnormal (test code = 42633-6) [facility] METABOLIC PANEL (NA, K, CL, CO2, GLUCOSE, BUN, CREATININE, CA)2022-02-13 10:39:07 Test Item Value Reference Range Interpretation Comments NA (test code = 136 mmol/L 135-145 1641534358) K (test code = 4.1 mmol/L 3.5-5 1328756201) CL (test code = 102 mmol/L 98-108 6059062500) CO2 TOTAL (test code = 27 mmol/L 23-31 5510984072) AGAP (test code = 2-16 8999698905) BUN (test code = 22 mg/dL 7-23 8366817085) GLUCOSE (test code = 94 mg/dL 70-110 1701018639) CREATININE (test code = 0.94 mg/dL 0.5-1.04 6367921260) CALCIUM (test code = 8.1 mg/dL 8.6-10.6 L 3991934189) eGFR (test code = mL/min/1.73m2 7834006579) KYLE (test code = KYLE) Association of [...] tests). Lab Interpretation Abnormal (test code = 09000-5) [facility] 01:50:10 Test Item Value Reference Range Interpretation Comments Height (test code = in 0128080293) Weight (test code = lbs 7287681689) Systolic BP (test code mmHg = 3683874090) Diastolic BP (test code mmHg = 0930723059) Heart Rate (test code = bpm 0625953099) BSA (test code = 1.85 m2 5268863186) IVS (test code = 1.22 cm 7644640518) Interventricular Septum 1.22 cm Diastolic Thickness by 2D (test code = 9143419) LVIDD (test code = 5.00 cm 9985418873) Left Ventricular End 117.9 mL Diastolic Volume by Teichholz Method (test code = 9606235) LVPWD (test code = 1.22 cm 7452373690) PW (test code = 1.22 cm 0.6-1.1 1041945858) EF(Teich) (test code = 74.60 % 4575864653) LVIDS (test code = 2.80 cm 4039656637) Left Ventricular End 29.9 mL Systolic Volume by Teichholz Method (test code = 7750804) FS (test code = 44 % 7794455129) EF - 2D (test code = 74.60 % 32810866) LVOT diameter (test 2.16 cm code = 5564072679) LVOT area (test code = 3.70 cm2 3874218584) Ao root diam (test code 3.40 cm = 9167836438) Aortic root (test code 3.4 cm = 8083193653) Ao root annulus (test 3.4 cm code = 8693397556) LA size (test code = 3.4 cm 6443441106) TR Peak Spencer (test code 330.0 cm/s = 6197247004) Triscuspid Valve mmHg Regurgitation Peak Gradient (test code = 4873696980) PV REGURGITATION PEAK mmHg GRADIENT (test code = 7312356797) PI dec slope (test code 137.20 cm/s2 = 0886016170) LAV(MOD-sp4) (test code 102.90 mL = 0997288611) MV Peak E Spencer (test 84.1 cm/s code = 4874271979) MV Peak A Spencer (test 40.1 cm/s code = 1647254065) E/A ratio (test code = ratio 8263712121) MV valve area p 1/2 3.70 cm2 method (test code = 1034961127) MV dec slope (test code 413.00 cm/s2 = 6840757104) MV P1/2t max spencer (test 83.70 cm/s code = 1786795076) MV Prop V (test code = 41.80 cm/s 0881767183) Tapse (test code = 1.83 cm 8565636014) LVOT stroke volume 96.90 cm3 (test code = 5210990654) LVOT peak spencer (test 125.5 cm/s code = 5026323292) LVOT mn grad (test code mmHg = 6201920079) AV LVOT peak gradient mmHg (test code = 2071945114) LVOT peak VTI (test 26.4 cm code = 2959607252) LV V1 mean (test code = 78.10 cm/s 2165666227) Aortic valve mean 103.7 cm/s velocity (test code = 8390024370) Ao peak spencer (test code 165.6 cm/s = 0446750394) Ao VTI (test code = 37.2 cm 9838259296) AV area by cont VTI 2.6 cm2 (test code = 7301347944) AV area peak spencer (test 2.8 cm2 code = 0652084603) Ao max PG (test code = 11.00 mm[Hg] 8211097710) AV peak gradient (test mmHg code = 3353532122) AV valve area (test 2.60 cm2 code = 8211460644) AV mean gradient (test mmHg code = 7028270919) LA Volume Index (BP) 55.2 mL/m2 (test code = 2222305775) LA volume (BP) (test 102.1 mL code = 9285008018) LAV(MOD-sp2) (test code 86.10 mL = 4014091895) A2C EF (test code = 61.20 % 6903999888) EF(sp2-el) (test code = 61.60 % 7576263423) SV(MOD-sp2) (test code 47.10 mL = 5920526783) LV Diastolic Volume 70.7 mL (BP) (test code = 7390532924) A4C EF (test code = 53.00 % 9261106450) EF(MOD-bp) (test code = 56.70 % 2540687578) EF(sp4-el) (test code = 53.90 % 6057334468) LV Systolic Volume (BP) 30.6 mL (test code = 6362537387) SV(MOD-bp) (test code = 40.10 mL 8024461131) SV(MOD-sp4) (test code 32.40 mL = 9256587566) SV(sp4-el) (test code = 33.10 mL 8791237525) EF (test code = 2027180654) Left Ventricular Stroke 40.1 mL Volume by 2-D Biplane-MOD (test code = 1788198) LV Diastolic Volume 38.2 mL/m2 Index (BP) (test code = 5534451924) LV Systolic Volume 16.5 mL/m2 Index (BP) (test code = 8180950185) Radiology Study observation (narrative) (test code = 16810-1) KYLE (test code = KYLE) ?Left?Ventricle: Left [...] 1.00The left ventricular wall motion is normal. [facility] [id number] 05:45:01 Test Item Value Reference Interpretation Comments Range TROPONIN I (test See_Comment [Automated code = 8494240130) message] The system which generated this result [...] biotin. Lab Interpretation Normal (test code = 79760-6) [id number] 05:41:40 Test Item Value Reference Range Interpretation Comments NT-proBNP (test code 4250 pg/mL See_Comment H [Autom ated = 8042770152) message] The system which generated this result transmitted reference range : <=125. The reference range was not used to interpret this result as normal/abnormal . KYLE (test code = KYLE) Biotin has been reported to cause a negative bias, interpret results relative to patient's use of biotin. Lab Interpretation Abnormal (test code = 86991-8) [facility] [id number] 05:35:21 Test Item Value Reference Range Interpretation Comments APTT Patient (test See_Comment [Automat ed code = 3173-2) message] The system which generated this result transmitted reference range : 23 - 38 Seconds . The reference range was not used to interpr et this result as normal/abnormal . KYLE (test code = KYLE) The [facility] patient population mean normal value for aPTT is 30 seconds. Lab Interpretation Normal (test code = 97957-4) [facility] [id number] 05:35:21 Test Item Value Reference Range Interpretation Comments APTT Patient (test See_Comment [Automat ed code = 3173-2) message] The system which generated this result transmitted reference range : 23 - 38 Seconds . The reference range was not used to interpr et this result as normal/abnormal . KYLE (test code = KYLE) The [facility] patient population mean normal value for aPTT is 30 seconds. Lab Interpretation Normal (test code = 77793-1) [facility] [id number] 05:33:21 Test Item Value Reference Range Interpretation [...] tions. Lab Interpretation (test Normal code = 25409-9) [facility]. METABOLIC PANEL (37538)2022-02-11 05:33:21 Test Item Value Reference Range Interpretation Comments NA (test code = 137 mmol/L 135-145 4417764693) K (test code = 4.3 mmol/L 3.5-5 9636822682) CL (test code = 103 mmol/L 98-108 8692017368) CO2 TOTAL (test code = 25 mmol/L 23-31 9152298356) AGAP (test code = 2-16 8940952893) BUN (test code = 19 mg/dL 7-23 9528385371) GLUCOSE (test code = 120 mg/dL 70-110 H 3373620545) CREATININE (test code = 1.15 mg/dL 0.5-1.04 H 0097445249) TOTAL BILI (test code = 0.9 mg/dL 0.1-1.6 3564008874) CALCIUM (test code = 8.9 mg/dL 8.6-10.6 3508214802) T PROTEIN (test code = 6.6 g/dL 6.3-8.2 5083269877) ALBUMIN (test code = 4.0 g/dL 3.5-5 6264941038) ALK PHOS (test code = 73 U/L 34-122 1305142787) ALTv (test code = 18 U/L 5-35 1742-6) AST(SGOT) (test code = 31 U/L 13-40 0043160210) eGFR (test code = mL/min/1.73m2 2097506136) KYLE (test code = KYLE) Association of [...] tests). Lab Interpretation Abnormal (test code = 05614-3) [facility]. METABOLIC PANEL (54296)2022-02-11 05:33:21 Test Item Value Reference Range Interpretation Comments NA (test code = 137 mmol/L 135-145 8559173776) K (test code = 4.3 mmol/L 3.5-5.0 3042198443) CL (test code = 103 mmol/L 98-108 2585041117) CO2 TOTAL (test code = 25 mmol/L 23-31 1604959402) AGAP (test code = 2-16 9914170079) BUN (test code = 19 mg/dL 7-23 5352220598) GLUCOSE (test code = 120 mg/dL 70-110 H 0006203851) CREATININE (test code = 1.15 mg/dL 0.50-1.04 H 3773587837) TOTAL BILI (test code = 0.9 mg/dL 0.1-1.0 9980153269) CALCIUM (test code = 8.9 mg/dL 8.6-10.6 9060944566) T PROTEIN (test code = 6.6 g/dL 6.3-8.2 2717129815) ALBUMIN (test code = 4.0 g/dL 3.5-5.0 6543906682) ALK PHOS (test code = 73 U/L 34-122 1336723294) ALTv (test code = 18 U/L 5-35 1742-6) AST(SGOT) (test code = 31 U/L 13-40 6363036734) eGFR (test code = mL/min/1.73m2 4499607494) KYLE (test code = KYLE) Association of [...] tests). Lab Interpretation Abnormal (test code = 59260-2) [facility] [id number] 05:33:21 Test Item Value Reference Range Interpretation [...] tions. Lab Interpretation (test Normal code = 13516-6) [facility] WITH [id number] 05:14:37 Test Item Value Reference Range Interpretation Comments WBC (test code = See_Comment [Automated 3390-2) message] The sy stem which generated this [...] RDW-SD (test code = 47.9 fL 39-49.9 16582-5) RDW-CV (test code = 14.9 % 12-15.5 788-0) PLT (test code = See_Comment L [Automated 777-3) message] The sy stem which generated this result transmitted reference range : 166 - 358 10*3/ ?L. The reference r abbey was not used to interpret this result as normal/abnormal . MPV (test code = 9.1 fL 9.5-12.9 L 79959-4) NRBC/100 WBC (test See_Comment [Automat ed code = 0570165741) message] The system which generated this result transmitted reference range : 0.0 - 10.0 /100 WBCs. The refer ence range was not u sed to interpret th is result as normal/abnormal . NRBC x10^3 (test code See_Comment [Auto mated = 9792516931) message] The s ystem which generated this result transmitted reference range : 10*3/?L. The reference range was not used to interpret this result as normal/abnormal . GRAN MAT (NEUT) % 78.5 % (test code = 770-8) IMM GRAN % (test code 0.20 % = 0274393360) LYMPH % (test code = 11.6 % 736-9) MONO % (test code = 8.4 % 5905-5) EOS % (test code = 1.1 % 713-8) BASO % (test code = 0.2 % 706-2) GRAN MAT x10^3(ANC) 3.45 10*3/uL 1.88-7.09 (test code = 1568864973) IMM GRAN x10^3 (test 0-0.06 code = 8003349413) LYMPH x10^3 (test code 0.51 10*3/uL 1.32-3.29 L = 731-0) MONO x10^3 (test code 0.37 10*3/uL 0.33-0.92 = 742-7) EOS x10^3 (test code = 0.05 10*3/uL 0.03-0.39 711-2) BASO x10^3 (test code 0.01-0.07 = 704-7) Lab Interpretation Abnormal (test code = 80767-4) [facility] Coronavirus 2019 Iminfco0636-83-70 18:08:00 Test Item Value Reference Range Interpretation [...] det ection of nucleic acids f rom nhhOBFL-GaR-1 v irus and diagnosis of SA RS-CoV-2 virusinfection. It is an Emergency Use Authorization ( EUA) testauthorized by the U.S. FDA. BASIC METABOLIC ILBMA3508-95-01 09:37:00 Test Item Value Reference Range Interpretation [...] = 9.0 mg/dL 8.0-10.5 N CA) PROTHROMBIN HYJO3613-36-03 09:32:00 Test Item Value Reference Range Interpretation [...] (to prevent recurrent infar ct). 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 - XR CHEST 1 W1937-95-86 00:00:00 [facility] 1955 Sex: F FAX: Carmenza Kelly DO [phone] Adel: St: ADM FAX: Mike Scales MD [phone] FAX: Bahman Chopra [phone] Name: LIO WATTS [facility] : 1955 Age/S: 66/F [address] [place] [address] Unit #: [id number] [place]: [place] [address] Phys: Bahman Chopra [facility] Acct: [id number] Dis Date: Status: ADM IN PHONE #: [phone] Exam Date: 06/17/2021 1320 FAX #: [phone] Reason: WATCHMAN EXAMS: CPT CODE: [id number] XR CHEST 1 V 72098 PROCEDURE INFORMATION: Exam: XR Chest Exam date [...] Chopra Technologist: RT Taylor(R) Trnscrd Date/Time/By: 06/17/2021 (5876) : By: Susanna Orig Print D/T: S: 06/17/2021 (7363) PAGE 1 Signed ReportCOVID 19 Asymptomatic IH [id number] 12:29:00 Test Item Value Reference Range Interpretation [...] high or waivedcomplexit y tests. BASIC METABOLIC ROCZH1365-93-02 11:37:00 Test Item Value Reference Range Interpretation [...] code = 9.0 mg/dL 8.0-10.5 N CA) NCPWBGNSCO3493-86-86 11:37:00 Test Item Value Reference Range Interpretation Comments PREALBUMIN (test code = PREALB) 24.3 mg/dL 16.0-40.0 N PROTHROMBIN TJLI0037-93-52 11:03:00 Test Item Value Reference Range Interpretation [...] (to prevent recurrent infar ct). CBC W/AUTO JQUC3367-98-69 10:59:00 Test Item Value Reference Range Interpretation [...] 0.0-0.1 N NRBC#) - XR CHEST 2 P2552-52-55 00:00:00 [facility] : 1955 Sex: F FAX: Carmenza Kelly DO [phone] Adel: St: PRE FAX: Mike Scales MD [phone] Name: LIO WATTS [facility] [place] : 1955 Age/S: 66/F [address] [place] [address] Unit #: [id number] Loc: [place], [place] [address]Mfox: Mike Lund MD Acct: [id number] Dis Date: Status: PRE [facility] PHONE #: [phone] Exam Date: 06/16/2021 1120 FAX #: [phone] Reason: PREOP EXAMS: CPT CODE: [id number] XR CHEST 2 V 61348 PROCEDURE INFORMATION: Exam: XR Chest Exam date [...] MD Technologist: RT Andree(R) Trnscrd Date/Time/By: 06/16/2021 (9796) : By: [email or web address] Orig Print D/T: S: 06/16/2021 (8944) PAGE 1 Signed ReportGastrointestinal cqoju1771-12-36 04:35:05 Test Item Value Reference Interpretation Comments [...] Rotavirus PCR (test Not Detected code = 7470864) Salmonella PCR (test Not Detected code = [...] PCR Not Detected (test code = 7124) [facility] atry[facility]rx5015[facility]72 19:30:47 Test Item Value Reference Range Interpretation Comments Case number (test [id number] code = 4249682) Surgical pathology See link below for PDF report (test code = Lab Report 2255) Result status (test This is Supplemental code = 1628259) Report for [id number] [facility]2021-04-09 16:31:00 Test Item Value Reference Range Interpretation Comments POC Activated Clotting Time (test code 153 s = POC Activated Clotting Time) [facility]kWCWVRDGXGM3525-59-62 16:31:00 Test Item Value Reference Range Interpretation Comments POC Activated Clotting Time (test code 153 s = POC Activated Clotting Time) [facility] HospitalMhwedivPGUKGOVXJO1536-26-30 16:31:00 Test Item Value Reference Range Interpretation Comments POC Activated Clotting Time (test code 153 s = POC Activated Clotting Time) [facility] HospitalUwzzjndYSBFLLPMYX3099-29-99 16:31:00 Test Item Value Reference Range Interpretation Comments POC Activated Clotting Time (test code 153 s = POC Activated Clotting Time) [facility] HospitalIuudapnLSPTORAOFM9208-32-01 16:31:00 Test Item Value Reference Range Interpretation Comments POC Activated Clotting Time (test code 153 s = POC Activated Clotting Time) [facility] HospitalNptngfeXGSDNDZNMM9631-59-20 16:31:00 Test Item Value Reference Range Interpretation Comments POC Activated Clotting Time (test code 153 s = POC Activated Clotting Time) [facility] HospitalPdmkgpiUGVCXDLVNN9836-27-81 16:31:00 Test Item Value Reference Range Interpretation Comments POC Activated Clotting Time (test code 153 s = POC Activated Clotting Time) [facility] HospitalPwemthaILEIRLWWHV7711-52-93 14:37:00 Test Item Value Reference Range Interpretation Comments POC Activated Clotting Time (test code 454 s = POC Activated Clotting Time) [facility] HospitalGqouvvxUHNRSMQUKB3249-88-78 14:37:00 Test Item Value Reference Range Interpretation Comments POC Activated Clotting Time (test code 454 s = POC Activated Clotting Time) [facility] HospitalYyimppqSHSEFOFHZF3752-43-57 14:37:00 Test Item Value Reference Range Interpretation Comments POC Activated Clotting Time (test code 454 s = POC Activated Clotting Time) [facility] HospitalEfkxsemHNKOSTPSAQ2382-19-95 14:37:00 Test Item Value Reference Range Interpretation Comments POC Activated Clotting Time (test code 454 s = POC Activated Clotting Time) [facility] HospitalJkobxusDLKZUOYGYM1218-85-53 14:37:00 Test Item Value Reference Range Interpretation Comments POC Activated Clotting Time (test code 454 s = POC Activated Clotting Time) [facility] HospitalJsvbzmlUIARKUXAFO6198-76-21 14:37:00 Test Item Value Reference Range Interpretation Comments POC Activated Clotting Time (test code 454 s = POC Activated Clotting Time) [facility] HospitalTrgdvmjBODQTVAAZO1254-40-66 14:37:00 Test Item Value Reference Range Interpretation Comments POC Activated Clotting Time (test code 454 s = POC Activated Clotting Time) [facility] HospitalPfiznjlXQOSWYGQOC3524-06-42 14:13:00 Test Item Value Reference Range Interpretation Comments POC Activated Clotting Time (test code 354 s = POC Activated Clotting Time) [facility] HospitalOjmzwmeDUIFEPCZQN1824-43-81 14:13:00 Test Item Value Reference Range Interpretation Comments POC Activated Clotting Time (test code 354 s = POC Activated Clotting Time) [facility] HospitalLzweruuWBYSQGXVNS6578-93-19 14:13:00 Test Item Value Reference Range Interpretation Comments POC Activated Clotting Time (test code 354 s = POC Activated Clotting Time) [facility] HospitalUaahkxuHWISLHKFBD9933-43-10 14:13:00 Test Item Value Reference Range Interpretation Comments POC Activated Clotting Time (test code 354 s = POC Activated Clotting Time) [facility] HospitalDmzpqkkXLMPKQKHAQ0004-98-88 14:13:00 Test Item Value Reference Range Interpretation Comments POC Activated Clotting Time (test code 354 s = POC Activated Clotting Time) [facility] HospitalCbzpwtqWRLYCADHVP8761-80-73 14:13:00 Test Item Value Reference Range Interpretation Comments POC Activated Clotting Time (test code 354 s = POC Activated Clotting Time) [facility] HospitalBoadcbpWAYLXKRTCB7017-54-77 14:13:00 Test Item Value Reference Range Interpretation Comments POC Activated Clotting Time (test code 354 s = POC Activated Clotting Time) [facility] WHYTCDY9476-07-55 10:37:00Negative (08/29/20 5:37 AM) [facility] ZYHLB5059-98-13 10:37:75907Xyluphqb HermannCHEM PANEL 2020-08-29 10:37:0028[facility]annCHEM FZUWF8768-46-85 10:37:001.01[facility] HermannCHEM IDCHN2253-33-66 10:37:69295Aipnzlzl HermannCHEM KFYFT5154-55-71 10:37:003.8[facility] HermannCHEM FYCJA4069-28-24 10:37:31485Rkgztwaj HermannCHEM VBCDV2295-64-01 10:37:0028[facility] HermannCHEM VGCJI7277-95-58 10:37:009.8 [facility] HermannCHEM BVAYP5745-52-65 10:37:0011.8[facility] HermannCHEM PANEL 2020-08-29 10:37:0059[facility] HermannCHEM ZLYQT3246-02-05 10:37:002.9[facility] YuwncshNEAGPXBXYO0361-70-70 10:37:006.8[facility] FarysvyWWFDIEIPNN3377-19-29 10:37:004.47[facility] JqdupjbKVKMPFGBOF1127-67-14 10:37:0010.6[facility] DDERUZWKFG3317-48-10 10:37:0034.0[facility] QxbqielZVOMMINHTL5670-04-01 10:37:00 76.1[facility] NhmsandQPRFOLOSBS8436-60-85 10:37:00 Test Item Value Reference Range Interpretation Comments MCH (test code = MCH) 23.8 pg 27.0-31.0 [facility] HznmisvFPPIRDOOKX3001-80-07 10:37:0031.3[facility] HermannHEMATOLOGY 2020-08-29 10:37:0018.2[facility] DqhmvauETTBIBIZNJ8953-78-13 10:37:00319Imwmylgx PbahhbrQDLTQAXIUA9563-20-23 10:37:007.5[facility] PymfpkcZCFMWGHTBY6829-70-11 10:37:00 Test Item Value Reference Range Interpretation Comments PT (test code = PT) 12.8 s 12.0-14.7 [facility] UgvcvzaLHOWALKHWR6498-40-38 10:37:00 Test Item Value Reference Range Interpretation Comments INR (test code = INR) 0.97 1 0.85-1.17 [facility] JtsogjuQUPICRWANE5534-72-33 10:37:00 Test Item Value Reference Range Interpretation Comments PTT (test code = PTT) 25.0 s 22.9-35.8 [facility] KjgepfmQKJQANENJT8258-62-91 10:37:0070.5[facility] HermannHEMATOLOGY 2020-08-29 10:37:0018.8[facility] KgqigutPIFEEUCOAC8840-26-67 10:37:009.5[facility] CmblpywDGOJEMCTRJ8103-04-34 10:37:000.9[facility] JfrdzwrVJXXTZONSB6950-65-12 10:37:000.3[facility] OawivbjBGSJBOHZCR3943-39-77 10:37:004.8[facility] XGXGRTDLYQ8131-08-23 10:37:001.3[facility] GqlivgnVQXQRGDYCN9098-42-86 10:37:000.6 [facility] KcydvwpCDKIDVNCIK5568-46-22 10:37:000.1[facility] HermannHEMATOLOGY 2020-08-29 10:37:001+ *ABN*(08/29/20 5:37 AM)[facility] RyapiblHWSCQYGIXM0974-11-21 10:37:00Not Detected (08/29/20 5:37 AM)[facility] HermannBLOOD BANK RESULTS 2020-08-29 10:37:00Negative (08/29/20 5:37 AM)[facility] HermannCHEM FQRIG2409-65-64 10:37:34735Fszlfrlm HermannCHEM NCXIA2988-45-55 10:37:0028[facility] HermannCHEM WZIVO0157-44-52 10:37:001.01[facility] HermannCHEM IOZEL3330-77-41 10:37:92620 [facility] HermannCHEM TTVMI0358-46-04 10:37:003.8[facility] HermannCHEM PANEL 2020-08-29 10:37:69421Vyfgpxmg HermannCHEM GQUQY9838-18-46 10:37:0028[facility] HermannCHEM OXQHY6779-70-72 10:37:009.8[facility] HermannCHEM WDSXH7912-92-44 10:37:0011.8[facility] HermannCHEM ZMXQU2756-74-05 10:37:0059[facility] HermannCHEM NKWWD7034-03-22 10:37:002.9[facility] GpagkueDXHJIKYUQN3412-72-64 10:37:006.8 [facility] IbrxnluMDANBAWEQL7882-23-76 10:37:004.47[facility] HermannHEMATOLOGY 2020-08-29 10:37:0010.6[facility] QpgyrxdYPEIURDUPC2434-82-30 10:37:0034.0[facility] QhvcjzlGOSERXWTQN5897-07-53 10:37:0076.1[facility] LdiyvxzPPRREGRXIY8292-10-73 10:37:00 Test Item Value Reference Range Interpretation Comments MCH (test code = MCH) 23.8 pg 27.0-31.0 [facility] ZbbfhxhIXLUDYTDTZ9304-82-08 10:37:0031.3[facility] HermannHEMATOLOGY 2020-08-29 10:37:0018.2[facility] MjpmxxtKXYIHONCTI7058-30-99 10:37:41370Nvbtecip VyykkcsXCMVPUFZNS0275-52-26 10:37:007.5[facility] ZmuurvpYXJJFLYHQF9499-61-53 10:37:00 Test Item Value Reference Range Interpretation Comments PT (test code = PT) 12.8 s 12.0-14.7 [facility] CtzaekmNSKHAGXZLR5707-14-89 10:37:00 Test Item Value Reference Range Interpretation Comments INR (test code = INR) 0.97 1 0.85-1.17 [facility] JofqgyfDXYWFQKLKL2027-66-31 10:37:00 Test Item Value Reference Range Interpretation Comments PTT (test code = PTT) 25.0 s 22.9-35.8 [facility] YrtywjlCIRHKNRHUS1827-55-35 10:37:0070.5[facility] HermannHEMATOLOGY 2020-08-29 10:37:0018.8[facility] HplyuqgMLKLRXZYXB8239-07-50 10:37:009.5[facility] WyoiulqRALDUGJEYT2877-89-97 10:37:000.9[facility] PbnffooLXRUDMWDGV6711-27-65 10:37:000.3[facility] YmmvopuLMPNYQXAXW2306-44-48 10:37:004.8[facility] HAVAQBSCEM0430-43-41 10:37:001.3[facility] IvvmjzvWYEUSELARW5007-90-62 10:37:000.6 [facility] IaahxiqBNXWEWPNTC8661-11-38 10:37:000.1[facility] HermannHEMATOLOGY 2020-08-29 10:37:001+ *ABN*(08/29/20 5:37 AM)[facility] IiiuvafTHTDZMKHIK9195-65-04 10:37:00Not Detected (08/29/20 5:37 AM)[facility] HermannBLOOD BANK RESULTS 2020-08-29 10:37:00Negative (08/29/20 5:37 AM)[facility] HermannCHEM CKCEB0716-30-25 10:37:26601Ypsnzmul HermannCHEM XDHTQ2842-43-34 10:37:0028[facility] HermannCHEM JDKIV5723-08-13 10:37:001.01[facility] HermannCHEM KVCLF0126-75-83 10:37:19453 [facility] HermannCHEM UWFTQ2940-68-33 10:37:003.8[facility] HermannCHEM PANEL 2020-08-29 10:37:32214Geklarts HermannCHEM JRIQJ7438-53-90 10:37:0028[facility] HermannCHEM DBYUA5754-05-76 10:37:009.8[facility] HermannCHEM CHTMO4408-18-35 10:37:0011.8[facility] HermannCHEM EEHSH5430-04-36 10:37:0059[facility] HermannCHEM XKHZA4919-44-58 10:37:002.9[facility] CywowefFCZOVUXTCS9374-46-85 10:37:006.8 [facility] OystelcYLLVBCFOMH8889-08-97 10:37:004.47[facility] HermannHEMATOLOGY 2020-08-29 10:37:0010.6[facility] RveudvvPGRRYQTBQE3370-50-49 10:37:0034.0[facility] GmienxnGIZPFELPIP2607-50-75 10:37:0076.1[facility] AwqunezRYEWQAYBBD7214-07-89 10:37:00 Test Item Value Reference Range Interpretation Comments MCH (test code = MCH) 23.8 pg 27.0-31.0 [facility] ZnueqvdYEYLLAYTJC8762-81-06 10:37:0031.3[facility] HermannHEMATOLOGY 2020-08-29 10:37:0018.2[facility] BbihzqrIWNDELTCHA7456-57-01 10:37:29874Jnecgljv YjbkrwpVABXYURHAA4111-48-51 10:37:007.5[facility] TuomiwjGGMHAKFQNC5349-77-08 10:37:00 Test Item Value Reference Range Interpretation Comments PT (test code = PT) 12.8 s 12.0-14.7 [facility] PvqzikeKUGCVMOQCV5583-65-72 10:37:00 Test Item Value Reference Range Interpretation Comments INR (test code = INR) 0.97 1 0.85-1.17 [facility] OtpwvfhMPCRVFNYKO9403-77-83 10:37:00 Test Item Value Reference Range Interpretation Comments PTT (test code = PTT) 25.0 s 22.9-35.8 [facility] YikfwnwWCQUTJKXIO1281-26-34 10:37:0070.5[facility] HermannHEMATOLOGY 2020-08-29 10:37:0018.8[facility] OzoevrhNFJPNEPWUS9543-40-80 10:37:009.5[facility] SiyqdnyUBMGMCGMGY7625-37-14 10:37:000.9[facility] OgygcieCHVJBFNKCA9588-07-72 10:37:000.3[facility] XuuihesXYWGHUONWM4860-59-16 10:37:004.8[facility] IHOOFVDYPY1998-12-54 10:37:001.3[facility] RkgmqzaSEYSUPLFPE2896-90-75 10:37:000.6 [facility] DpknfcmFPBLPWEXOA3423-80-06 10:37:000.1[facility] HermannHEMATOLOGY 2020-08-29 10:37:001+ *ABN*(08/29/20 5:37 AM)[facility] LvvhtsbWRWPLHOKMU8293-21-28 10:37:00Not Detected (08/29/20 5:37 AM)[facility] HermannBLOOD BANK RESULTS 2020-08-29 10:37:00Negative (08/29/20 5:37 AM)[facility] HermannCHEM KAUTL1353-43-39 10:37:71345Pbotvqzc HermannCHEM GIVGU6828-10-55 10:37:0028[facility] HermannCHEM FVZYU4855-99-70 10:37:001.01[facility] HermannCHEM JWHMU4312-76-80 10:37:60133 [facility] HermannCHEM UHJSD9155-89-44 10:37:003.8[facility] HermannCHEM PANEL 2020-08-29 10:37:78711Tnzyvtzd HermannCHEM DGBGK3449-83-23 10:37:0028[facility] HermannCHEM MVXVQ9714-24-83 10:37:009.8[facility] HermannCHEM BYSMP0382-51-51 10:37:0011.8[facility] HermannCHEM WTMBM2024-49-56 10:37:0059[facility] HermannCHEM IWYHL3387-13-34 10:37:002.9[facility] CouahdiCSYGOJCPMO1609-78-05 10:37:006.8 [facility] MczpnfcFCSMPCZZPV0488-90-01 10:37:004.47[facility] HermannHEMATOLOGY 2020-08-29 10:37:0010.6[facility] SvosvudGEKAJCRYAA7818-47-95 10:37:0034.0[facility] ItoikvfTMNFYLDATD5327-02-27 10:37:0076.1[facility] VulqlboBXEYCEQBHY5802-25-83 10:37:00 Test Item Value Reference Range Interpretation Comments MCH (test code = MCH) 23.8 pg 27.0-31.0 [facility] IgclvkdTBNZFGPEPR2377-83-68 10:37:0031.3[facility] HermannHEMATOLOGY 2020-08-29 10:37:0018.2[facility] DqrkfdqEXZHBIZZEA0465-38-76 10:37:27968Fvawqduc CldkzstGFPWGBYHHG1294-52-50 10:37:007.5[facility] FukxpoeGNAHAWYZSD8739-44-64 10:37:00 Test Item Value Reference Range Interpretation Comments PT (test code = PT) 12.8 s 12.0-14.7 [facility] YgmonuoQCDVONUMSP1082-87-38 10:37:00 Test Item Value Reference Range Interpretation Comments INR (test code = INR) 0.97 1 0.85-1.17 [facility] ZmjbyqmCMTOMDPEKT7834-74-65 10:37:00 Test Item Value Reference Range Interpretation Comments PTT (test code = PTT) 25.0 s 22.9-35.8 [facility] XwwjphaKJODPFPTBP9836-15-28 10:37:0070.5[facility] HermannHEMATOLOGY 2020-08-29 10:37:0018.8[facility] KcuzgvcSWOZVBBXKB5157-37-20 10:37:009.5[facility] IxxygvkIUPIPANZAC0840-21-01 10:37:000.9[facility] QpizblkOKQMHKAJYL0250-06-45 10:37:000.3[facility] QemfdnkPEFHICGVTO1478-96-80 10:37:004.8[facility] QXUMSOQYSZ2230-57-90 10:37:001.3[facility] MdjehvnATPQFDFHVU5101-25-85 10:37:000.6 [facility] NwukihgFPHYJRLSAV6353-56-83 10:37:000.1[facility] HermannHEMATOLOGY 2020-08-29 10:37:001+ *ABN*(08/29/20 5:37 AM)[facility] DpovlvkLBWLVUTFSH6874-36-48 10:37:00Not Detected (08/29/20 5:37 AM)[facility] HermannBLOOD BANK RESULTS 2020-08-29 10:37:00Negative (08/29/20 5:37 AM)[facility] HermannCHEM NWRPQ5230-00-40 10:37:48708Ymwipjbl HermannCHEM LJBTW7577-86-79 10:37:0028[facility] HermannCHEM JOXTW5304-08-68 10:37:001.01[facility]annCHE[facility] IQWMA8552-69-36 10:37:17126 [facility] LCMRO6024-97-68 10:37:003.8[facility]annCHEM PANEL 2020-08-29 10:37:76201Mbdetkbg [facility]annCHEM QXMQD2546-80-00 10:37:0028[facility]annCHE[facility] ONPOY8631-48-02 10:37:009.8[facility]annCHEM OEOQC9082-98-89 10:37:0011.8[facility]annCHEM RZGLE5466-22-68 10:37:0059[facility]annCHE[facility] FTTJQ1215-04-36 10:37:002.9[facility] EokoyngASBCFXDQOQ5673-86-49 10:37:006.8 [facility] RxphzjxZHZNZMGTHW6157-29-94 10:37:004.47[facility]annHEMATOLOGY 2020-08-29 10:37:0010.6[facility] KechpthZCYWOILNDV9495-77-34 10:37:0034.0[facility] OzdimqkFEOPYSTAGU6205-37-72 10:37:0076.1[facility] DotzwlbYQRCNUPOEU4931-24-16 10:37:00 Test Item Value Reference Range Interpretation Comments MCH (test code = MCH) 23.8 pg 27.0-31.0 [facility] VzkwxrrTINUDDDORR5672-11-88 10:37:0031.3[facility]annHEMATOLOGY 2020-08-29 10:37:0018.2[facility] WukluueICRIVQUEJT1541-59-76 10:37:16933Imjzjlrb KcmuhyzRHCWJSUXEF9955-23-89 10:37:007.5[facility] BcarpdwTVZWYCGXAR1534-46-76 10:37:00 Test Item Value Reference Range Interpretation Comments PT (test code = PT) 12.8 s 12.0-14.7 [facility] FtcurnnRSRKUSGAXA3279-03-36 10:37:00 Test Item Value Reference Range Interpretation Comments INR (test code = INR) 0.97 1 0.85-1.17 [facility] SmcwiegLSSDKOKJCD1793-40-15 10:37:00 Test Item Value Reference Range Interpretation Comments PTT (test code = PTT) 25.0 s 22.9-35.8 [facility] FenuvxsLADWJSYPBV3468-33-47 10:37:0070.5[facility]annHEMATOLOGY 2020-08-29 10:37:0018.8[facility] BrixuupFZVJUENHQI0159-94-38 10:37:009.5[facility] VxsduapSIUJWPLMCD3605-77-40 10:37:000.9[facility] HnyauyeKXZWYBBXNX4478-19-34 10:37:000.3[facility] LpgdpyeILQLOPTXQM3143-61-12 10:37:004.8[facility] PEUJWYNUZM5755-68-33 10:37:001.3[facility] ZsrjvyrSTGTQKYYVT7781-63-95 10:37:000.6 [facility] RhlnsrhLHGADQYDSB5012-47-34 10:37:000.1[facility]annHEMATOLOGY 2020-08-29 10:37:001+ *ABN*(08/29/20 5:37 AM)[facility] PsaquyiLKMUQAQYGF6224-95-84 10:37:00Not Detected (08/29/20 5:37 AM)[facility] 2020-08-29 10:37:00Negative (08/29/20 5:37 AM)[facility]annCHEM PAYWJ2067-56-34 10:37:25260Vmxtudbi HermannCHEM XKGDN1948-94-96 10:37:0028[facility]annCHEM MHGUM1705-50-19 10:37:001.01[facility]annCHEM XAFLK9593-88-38 10:37:69475 [facility]CHE[facility] VYJOG1685-56-06 10:37:003.8[facility]annCHEM PANEL 2020-08-29 10:37:82302Mvzpthcd HermannCHEM ZYVSU7631-99-43 10:37:0028[facility]annCHEM ENEHL9747-98-51 10:37:009.8[facility]annCHEM JIRMI1790-75-63 10:37:0011.8[facility]annCHEM JKPLJ0351-09-95 10:37:0059[facility]annCHEM LIQUY8021-85-18 10:37:002.9[facility] UzyyisgBAZNWSXYFG0958-74-95 10:37:006.8 [facility] WfohqrjILXCCYOTUS6488-62-44 10:37:004.47[facility]annHEMATOLOGY 2020-08-29 10:37:0010.6[facility] QpkcfzwKHTAVJWKBA9086-05-96 10:37:0034.0[facility] CcvmkydRFDLGRMAUQ0737-70-48 10:37:0076.1[facility] PdedwrjVXYLQDKKJI2101-01-00 10:37:00 Test Item Value Reference Range Interpretation Comments MCH (test code = MCH) 23.8 pg 27.0-31.0 [facility] LiwixiwTVDIPBMRWQ1150-59-67 10:37:0031.3[facility]annHEMATOLOGY 2020-08-29 10:37:0018.2[facility] ZmqqkviXPQGKIGFIP3882-30-90 10:37:24427Zhyjvqeo ItpnlneTPQUGNHAOV3313-48-22 10:37:007.5[facility] ZyesceaRPGYUDRAVS4533-02-03 10:37:00 Test Item Value Reference Range Interpretation Comments PT (test code = PT) 12.8 s 12.0-14.7 [facility] SrqvvngSXXTQAHKLZ3718-90-97 10:37:00 Test Item Value Reference Range Interpretation Comments INR (test code = INR) 0.97 1 0.85-1.17 [facility] JjfpoycIKLSLZLUXP0732-69-54 10:37:00 Test Item Value Reference Range Interpretation Comments PTT (test code = PTT) 25.0 s 22.9-35.8 [facility] NyplebnEWWHENFNSM1561-31-36 10:37:0070.5[facility] HermannHEMATOLOGY 2020-08-29 10:37:0018.8[facility] EocaozjADSBMNDQHY1150-93-74 10:37:009.5[facility] QtfmpkjIZWCWAYWSK7808-32-99 10:37:000.9[facility] AgukyzxTUXPMNEFRU8969-80-10 10:37:000.3[facility] YqkhryiNAXUPDSFJA2114-03-75 10:37:004.8[facility] Marty YANIOSRMQE1789-47-43 10:37:001.3[facility] GuytbtlOSVESDRRBE2116-80-27 10:37:000.6 [facility] GcujqosDXSQSATFNK0787-70-70 10:37:000.1[facility]annHEMATOLOGY 2020-08-29 10:37:001+ *ABN*(08/29/20 5:37 AM)[facility] RzfddgbEXUZFGUJDR7489-78-16 10:37:00Not Detected (08/29/20 5:37 AM)[facility]annBL[facility] BANK RESULTS 2020-08-29 10:37:00Negative (08/29/20 5:37 AM)[facility] HermannCHEM JNFUI4779-90-17 10:37:76190Qpdnokbu HermannCHEM MPXGQ8219-79-62 10:37:0028[facility] HermannCHEM JKOBL3781-53-90 10:37:001.01[facility] HermannCHEM WVGFR6413-78-56 10:37:10738 [facility]annCHEM USIZV4026-57-08 10:37:003.8[facility] HermannCHEM PANEL 2020-08-29 10:37:71844Mupfbzkw HermannCHEM WVUYB3539-23-93 10:37:0028[facility] HermannCHEM OMRKA3867-60-32 10:37:009.8[facility] HermannCHEM SGUYA9083-11-87 10:37:0011.8[facility] HermannCHEM GKXCR0102-59-15 10:37:0059[facility] HermannCHEM GZTEQ1158-54-07 10:37:002.9[facility] NvheepaJBAPKDRSAG7106-49-22 10:37:006.8 [facility] GmtiwesMFJBSAUHAI2195-19-55 10:37:004.47[facility]annHEMATOLOGY 2020-08-29 10:37:0010.6[facility] BxsareaOLQJKRTBEB8094-55-69 10:37:0034.0[facility] MwxuvnrLAQVBHMZTU8408-61-60 10:37:0076.1[facility] EdmkvolIGNASSORJR4280-23-20 10:37:00 Test Item Value Reference Range Interpretation Comments MCH (test code = MCH) 23.8 pg 27.0-31.0 [facility] VlmmkpyXPZTGUUDGV6314-75-76 10:37:0031.3[facility]annHEMATOLOGY 2020-08-29 10:37:0018.2[facility] LbjnyemQKFGDRHKKT8660-64-81 10:37:02359Cgaezbvn OwlvlxbBFOWKALUBP4394-05-48 10:37:007.5[facility] NlamnenPBDHUVEHIU1498-50-77 10:37:00 Test Item Value Reference Range Interpretation Comments PT (test code = PT) 12.8 s 12.0-14.7 [facility] GahlukmQZJWYBCKTS3648-16-34 10:37:00 Test Item Value Reference Range Interpretation Comments INR (test code = INR) 0.97 1 0.85-1.17 [facility] IkaiajcGLZHUVNQYA0927-45-93 10:37:00 Test Item Value Reference Range Interpretation Comments PTT (test code = PTT) 25.0 s 22.9-35.8 [facility] KujskhvLUGHNPRQWM2029-44-71 10:37:0070.5[facility]annHEMATOLOGY 2020-08-29 10:37:0018.8[facility] NuhnfvxVTIDJYBHZK7132-64-48 10:37:009.5[facility] MxqtqjhKXBILBRPPE9588-84-92 10:37:000.9[facility] WjtmqtxNIEXGHLMNF4019-83-87 10:37:000.3[facility] KarfkxnTTNQHAPDLS0921-49-88 10:37:004.8[facility] WDDJNISNVC3378-67-83 10:37:001.3[facility] UntkxnvWRRYBZREFB2097-10-46 10:37:000.6 [facility] XlwcawqBQNXKLSZQL8085-80-25 10:37:000.1[facility] HermannHEMATOLOGY 2020-08-29 10:37:001+ *ABN*(08/29/20 5:37 AM)[facility]FzaienwEBJMYQETUR3720-28-26 10:37:00Not Detected (08/29/20 5:37 AM)[facility], GC, TV,PCR, [place] YIPYV8934-38-06 15:38:00 Test Item Value Reference Range Interpretation Comments FT (test code = CHTR) Not detected (qualifier Not Detected N value) FT (test code = Not detected (qualifier Not Detected N NGONO) value) FT (test code = TRVG) Not detected (qualifier Not Detected N value) [facility] [place] WBLUDOCWBPU2656-52-67 10:57:00 Test Item Value Reference Range Interpretation Comments Color (test code = UCOLR) Dk. Yellow Clarity (test code = UCLAR) Hazy Glucose (test code = UGLUC) NEGATIVE NEGATIVE N Bilirubin (test code = UBILI) NEGATIVE NEGATIVE N Ketones (test code = UKET) NEGATIVE NEGATIVE N Specific [place] (test code = 1.025 1.005-1.030 A USPGR) [...] = None Seen None Seen N URCRYS) [facility] [place]"
--- NOTE | 2022-07-21 13:16 | RAD REPORT ---
EXAM DESCRIPTION: CT - Head Brain Wo Cont - 07/21/2022 1:09 pm CLINICAL HISTORY: HEADACHE COMPARISON: <Comparisons> TECHNIQUE: All CT scans are performed using dose optimization technique as appropriate and may inclu de automated exposure control or mA/KV adjustment according to patient size. FINDINGS: No intracranial hemorrhage, hydrocephalus or extra-axial fluid collection.Moderate general ized brain atrophy is present with moderate periventricular and deep white matter chronic microvascul ar ischemic changes.No areas of brain edema or evidence of midline shift. The paranasal sinuses and mastoids are clear. The calvarium is intact. IMPRESSION: No acute intracranial abnormality.
[2022-07-21 13:28] LABS: SARS-COV-2 RT PCR NEGATIVE (NEGATIVE)
--- NOTE | 2022-07-21 13:58 | ER ---
Nurse's Notes [facility] Name: Marjan Kolb Age: 67 yrs Sex: Female : 1955 Arrival Date: 07/21/2022 Time: 12:08 Bed IW1 Private MD: Diagnosis: Headache Presentation: 07/21 12:19 Chief complaint: Patient states: MARTIN that began at 0200 this morning. Coronavirus ss screen: Client denies travel out of the [place] in the last 14 days. Ebola Screen: Patient denies exposure to infectious person. Patient denies travel to an Ebola-affected area in the 21 days before illness onset. Initial Sepsis Screen: Does the patient meet any 2 criteria? No. Patient's initial sepsis screen is negative. Does the patient have a suspected source of infection? No. Patient's initial sepsis screen is negative. Risk Assessment: Do you want to hurt yourself or someone else? Patient reports no desire to harm self or others. Onset of symptoms was July 21, 2022 at 02:00. 12:19 Method Of Arrival: EMS: [facility] ss 12:19 Acuity: BLAYNE 3 ss Historical: - Allergies: 12:21 Azithromycin; ss 12:21 Bactrim; ss 12:21 butorphanol; ss 12:21 Fentanyl; ss 12:21 Reglan; ss 12:21 Sulfa (Sulfonamide Antibiotics); ss 12:21 TRIMETHOPRIM; ss - PMHx: 12:21 Anxiety; Atrial fibrillation; Bipolar disorder; esophageal varicies; Hepatitis; HIV ss positive; Hypertensive disorder; Migraine; panic attack; - Immunization history:: Client reports receiving the 2nd dose of the Covid vaccine. - Social history:: Smoking status: Patient/guardian denies using tobacco, but has a distant history of tobacco abuse. Screenin:10 [facility] ED Fall Risk Assessment (Adult) History of falling in the last 3 months, ss including since admission No falls in past 3 months (0 pts). Abuse screen: Denies threats or abuse. Denies injuries from another. Nutritional screening: No deficits noted. Tuberculosis screening: Never had TB. Assessment: 14:10 General: Appears in no apparent distress. comfortable, Behavior is calm, cooperative. ss Pain: Complains of pain in head in entire Pain currently is 10 out of 10 on a pain scale. Neuro: Level of Consciousness is awake, alert, obeys commands. Respiratory: Airway is patent Respiratory effort is even, unlabored, Respiratory pattern is regular, symmetrical. Derm: Skin is intact, is fragile, Skin is dry, Bruising that is bruising noted to bilateral arms in various stages of healing.. Musculoskeletal: Circulation, motion, and sensation intact. Range of motion: intact in all extremities. Vital Signs: 12:19 BP 162 / 79; Pulse 51; Resp 16; Temp 97.5(TE); Pulse Ox 96% on R/A; Weight 76.2 kg; ss Height 5 ft. 4 in. (162.56 cm); Pain 10/10; 12:19 Body Mass Index 28.84 (76.20 kg, 162.56 cm) ss Crystal Coma Score: 15:43 Eye Response: spontaneous(4). Verbal Response: oriented(5). Motor Response: obeys kb commands(6). Total: 15. ED Course: 12:08 Patient arrived in ED. mr 12:21 Triage completed. ss 12:21 Arm band placed on right wrist. ss 12:28 Rosemary Cespedes FNP-C is [facility]. kb 12:28 Justus Kolb MD is Attending Physician. kb 13:10 CT Head Brain wo Cont In Process Unspecified. EDMS 14:10 Sandra Cadet, ASHLEY is Primary Nurse. ss 14:10 Patient has correct armband on for positive identification. ss 14:10 No provider procedures requiring assistance completed. Patient did not have IV access ss during this emergency room visit. Administered Medications: No medications were administered Medication: 14:10 VIS not applicable for this client. ss Outcome: 13:58 Discharge ordered by . kb 14:11 Discharged to home ambulatory. ss 14:11 Condition: good 14:11 Discharge instructions given to patient, Instructed on discharge instructions, follow up and referral plans. Demonstrated understanding of instructions, follow-up care. 14:12 Patient left the ED. ss Signatures: Dispatcher [employer] EDMS Rosemary Cespedes FNP-C FNP-Katelyn Jessie Hill mr Sandra Cadet, RN RN ss
--- NOTE | 2022-07-21 13:58 | EDPHYS ---
Physician Documentation [facility] Name: Marjan Kolb Age: 67 yrs Sex: Female : 1955 Arrival Date: 07/21/2022 Time: 12:08 Bed IW1 Private MD: ED Physician Justus Kolb HPI: 07/21 15:46 This 67 yrs old Female presents to ER via EMS with complaints of Headache. kb 15:46 The patient complains of pain to the top of head. The patient describes the headache as kb throbbing. Onset: The symptoms/episode began/occurred this morning, at 02:00. Associated signs and symptoms: Pertinent positives: fever, nausea. Severity of symptoms: At its worst the pain was moderate, in the emergency department the pain has improved. Headache History: Denies prior headaches. The symptoms are alleviated by nothing. the symptoms are aggravated by nothing. The patient has not experienced similar symptoms in the past. The patient has not recently seen a physician. Historical: - Allergies: 12:21 Azithromycin; ss 12:21 Bactrim; ss 12:21 butorphanol; ss 12:21 Fentanyl; ss 12:21 Reglan; ss 12:21 Sulfa (Sulfonamide Antibiotics); ss 12:21 TRIMETHOPRIM; ss - PMHx: 12:21 Anxiety; Atrial fibrillation; Bipolar disorder; esophageal varicies; Hepatitis; HIV ss positive; Hypertensive disorder; Migraine; panic attack; - Immunization history:: Client reports receiving the 2nd dose of the Covid vaccine. - Social history:: Smoking status: Patient/guardian denies using tobacco, but has a distant history of tobacco abuse. ROS: 15:45 Respiratory: Negative for shortness of breath, cough, wheezing, and pleuritic chest kb pain. 15:45 Constitutional: Positive for fever. 15:45 Abdomen/GI: Positive for nausea, Negative for abdominal pain. 15:45 Neuro: Positive for headache. 15:45 All other systems are negative. Exam: 15:46 Constitutional: This is a well developed, well nourished patient who is awake, alert, kb and in no acute distress. Head/Face: Normocephalic, atraumatic. Eyes: Pupils equal round and reactive to light, extra-ocular motions intact. Lids and lashes normal. Conjunctiva and sclera are non-icteric and not injected. Cornea within normal limits. Periorbital areas with no swelling, redness, or edema. ENT: Moist Mucous membranes Cardiovascular: Regular rate and rhythm with a normal S1 and S2. No gallops, murmurs, or rubs. No pulse deficits. Respiratory: Respirations even and unlabored. No increased work of breathing. Talking in full sentences Abdomen/GI: Soft, non-tender. No distention Skin: Warm, dry with normal turgor. Normal color. MS/ Extremity: Pulses equal, no cyanosis. Neurovascular intact. Full, normal range of motion. Neuro: Awake and alert, GCS 15, oriented to person, place, time, and situation. Moves all extremities. Normal gait. Vital Signs: 12:19 BP 162 / 79; Pulse 51; Resp 16; Temp 97.5(TE); Pulse Ox 96% on R/A; Weight 76.2 kg; ss Height 5 ft. 4 in. (162.56 cm); Pain 10/10; 12:19 Body Mass Index 28.84 (76.20 kg, 162.56 cm) [place] Coma Score: 15:43 Eye Response: spontaneous(4). Verbal Response: oriented(5). Motor Response: obeys kb commands(6). Total: 15. MDM: 12:28 Patient medically screened. kb 15:43 Differential diagnosis: Migraine, tension headache, sinusitis, flu, COVID, viral kb syndrome. Data reviewed: vital signs, nurses notes. I considered the following discharge prescriptions or medication management in the emergency department I discussed and recommended Over The Counter medications. Counseling: I had a detailed discussion with the patient and/or guardian regarding: the historical points, exam findings, and any diagnostic results supporting the discharge/admit diagnosis, lab results, radiology results, the need for outpatient follow up, a family practitioner, to return to the emergency department if symptoms worsen or persist or if there are any questions or concerns that arise at home. 15:44 ED course: Patient is a 67-year-old female who states she woke up with a headache and kb fever at 0 200 this morning. Tylenol was given by EMS and patient reports headache improved. On exam, PERRL, EOMs intact, awake alert and oriented x4, lungs clear throughout, no abdominal tenderness. CT head, flu and COVID test done and reviewed. Patient educated to follow-up with PCP.. 07/21 12:32 Order name: COVID-19/FLU A+B; Complete Time: 13:30 kb 07/21 12:32 Order name: CT Head Brain wo Cont; Complete Time: 13:25 kb Administered Medications: No medications were administered Disposition Summary: 07/21/22 13:58 Discharge Ordered Location: Home kb Condition: Stable kb Diagnosis - Headache kb Followup: kb - With: Emergency Department - When: As needed - Reason: Worsening of condition Followup: kb - With: Private Physician - When: 2 - 3 days - Reason: Recheck today's complaints, Continuance of care, Re-evaluation by your physician Discharge Instructions: - Discharge Summary Sheet kb - General Headache Without Cause, Joef-mh-Hjwt kb Forms: - Medication Reconciliation Form kb - Thank You Letter kb - Antibiotic Education kb - Prescription Opioid Use kb Signatures: Dispatcher [employer] EDMS Rosemary Cespedes, Sandra Jennings RN RN ss Corrections: (The following items were deleted from the chart) 15:46 15:44 ED course: Patient is a 67-year-old female who states she woke up with a headache kb and fever at 0 200 this morning. On exam, PERRL, EOMs intact, awake alert and oriented x4, lungs clear throughout, no abdominal tenderness. CT head, flu and COVID test done and reviewed. Patient educated to follow-up with PCP.. kb
== END 2022-07-21 14:12 | disposition home or self-care (01) ==
LOC: ER 12:02
DX: R51.9 Headache, unspecified (principal); Z20.822 Contact with and (suspected) exposure to COVID-19
CPT/HCPCS: 0240U; 70450

== ENCOUNTER 2022-08-04 07:05 | Emergency (ER) | payer OTHER ==
--- OUTSIDE RECORDS SUMMARY | 2022-08-04 07:27 | XMS REPORT | Continuity of Care Document ---
:1955 Author Organization [facility] t Address [address] [place] [address] Care Team Providers Name Role Phone Urmila [...] Attending Clinician Unavailable Robbi Bal Attending Clinician [facility] Attending Clinician Unavailable Isaias Whiteside RN Attending Clinician Unavailable TOMY MARIE Attending Clinician Unavailable Reilly Means MD Attending Clinician Ofe Shields MD Attending Clinician Tomy Marie MD Attending Clinician Doctor Unassigned, [place] Attending Clinician Unavailable Bill COLES Attending Clinician Unavailable Bill Rose Attending Clinician CHARITY MCALLISTER Attending Clinician Unavailable Charity Mcallister MD Attending Clinician GADIEL KOEHLER Attending Clinician Unavailable Mike Lund Attending Clinician Unavailable NIKOLAI REEVES Attending Clinician Unavailable Eliseo Arce MD Attending Clinician Carol Ann IZQUIERDO, Sarai Lieberman Attending Clinician [phone] Ashly Pelletier MA Attending Clinician Unavailable Dagoberto Bass MD Attending Clinician [place] Evangelista Attending Clinician Lab, [facility] Attending Clinician Unavailable Monica Rodas MA Attending Clinician Unavailable Agustina Ortiz MA Attending Clinician Unavailable Rody Maguire RN Attending Clinician Unavailable Remigio MD, Saraswathi V. Attending Clinician HEMATPOUR, BEVERLY Attending Clinician Unavailable Caridad SALGUERO, Gloria Attending Clinician Xiao RAMIREZ, Michael Corbin Attending Clinician Unavailable Team, [facility] Attending Clinician UnavailDO PORSHA Newell Attending Clinician Unavailable Gadiel Koehler MD Attending Clinician Tyrone JENKINS, Eveline Sierra Attending Clinician Eladio Colorado RN Attending Clinician Unavailable Geraldine SALGUERO, Leyda Attending Clinician [phone] Selvin RAMIREZ, Stefanie Attending Clinician Unavailable [...] Date Expiration Date S gabino [facility] COMMUNITY PLAN [id number] 2012 ST[facility] PLUS OON 00:[facility]00 [facility] [id number] 2019 DUAL COMPLETE HMO 00:00:00 [facility] [id number] 2019 PLUS 00:00:00 [facility] [id number] 2019 [facility] [place] STAR 00:00:00 [employer] MEDICARE ADV [id number] 2019 2019 00:00:00 00:00:00 Problems Condition Condition Condition Status Onset Resolution Last Treating Co mments Source Name Details Category Date Date Treatment Clinician Date Dyspnea, Dyspnea, Disease Active Unive rs unspecifie unspecifie 02-11 it y of d type d type 00:00: [place] [address] Medical Branch Gastropare Gastropare Disease Active Overview : Methodi sis sis 4-[address] 00:00: [facility] note l might be different from the original. Added automatic ally from request for surgery [id number] Dysphagia Dysphagia Disease Active Overview: Methodi 4-[address] 00:00: [facility] 00 note l might be different from the original. Added automatic ally from request for surgery [id number] CCL / EPS CCL / EPS Diagnosis Active 2020-10-15 Get PVI PVI 3-30 17:07:00 l ABLATION ABLATION 00:00: Patel n W/ CARTO / W/ CARTO / 00 GA / T GA / T Active 08/19/2020 [facility] Food Food Disease Active 2019-05 Methodi intoleranc [...] 1-25 Clear 00:00: Garcia 00 [facility] trimetho DA Active [facility] prim 1-25 Clear 00:00: Garcia [facility] codeine DA Active SV N/V [facility] 1-25 Clear 00:00: Garcia [facility] Metoclop Propensi Active [place] ramide ty [...] Date Stop Date Source Natural father Diabetes [facility] Natural father Other - see comments [facility] Natural father Coronary [facility] [place] Disease [facility] mother [facility] Social History Social Habit Start Date Stop Date Quantity Comments Source History SDOH Spiritism Alcohol Frequency Hospita l History SDOH Spiritism Alcohol Std Drinks Hospit al History SDPR Spiritism Alcohol Binge Hospital Exposure to 2022-04-30 2022-05-10 Yes University of SARS-CoV-2 (event) 00:00:00 10:25:00 [facility] Tobacco use and 2022-02-11 2022-02-11 Former smokeless Uni versity of exposure 00:00:00 00:00:00 tobacco user [facility] Tobacco Comment 2022-02-11 2022-02-11 Smokes approx 1-2 Un iversity of 00:00:00 00:00:00 cigarettes per [facility] day when she Branch smokes Alcohol intake 2020-12-08 2020-12-08 Current drinker [facility] 00:00:00 00:00:00 of [facility] (finding) Cigarettes smoked 2020-09-05 2020-09-[address] current (pack [facility] - Reported Cigarette 2020-09-05 2020-09-05 Spiritism pack-years 00:00:00 00:00:00 Hospital Alcohol Comment 2016-09-23 2016-09-23 rare Spiritism 00:00:00 00:00:00 Hospital History of tobacco 2011-09-29 User of smokeless University of use 00:00:00 tobacco [facility] Sex Assigned At [birth year] [facility] 00:00:00 00:00:00 Smoking Status Start Date Stop Date Source Ex-smoker 2022-02-11 00:00:00 2022-02-11 00:00:00 Universi ty of [facility] Medications Ordered Filled Start Stop Current Ordering Indication Dosage Frequency Signature Comments Components Source Medication Medication Date Date Medication? Clinician (SIG) Name Name potassium 2021-05- No 10meq 10 mEq, IV Univers chloride in 07-11 Piggyback, i ty of water 10 20:00: 22:00 ONCE, 1 [place] mEq/100 mL 00 :00 dose, On Medic al RTU 10 mEq [facility] 05/10/22 at 1400, Administer over 60 Minutes, 100 mL magnesium 2021-05 No 800mg 800 mg, Uni vers oxide 07-11 Oral, ity of (MAG-OX 20:00: 19:37 ONCE, 1 [place] 400) tablet 00 :00 dose, On Medi porfirio 800 mg [facility] 05/10/22 at 1400, Routine KCL 2021-05- No 40meq 40 mEq, Univers (KLOR-CON 07-11 Oral, ity of M20) tablet 19:15: 19:37 [place]CE[place] 1 [place] 40 mEq 00 :00 dose, On Medical [facility] 05/10/22 at 1315, JOE hydralAZINE 2021-05- No 10mg 10 mg, Uni vers (APRESOLINE 07-11 Slow IV ity of ) injection 18:45: 18:42 [place] 10 mg 00 :00 ONCE, 1 Medical dose, On [facility] 05/10/22 at 1245, JOE NaCl 0.9% 2021-05- No 1000mL at 999 Uni vers (NS) bolus 07-11 mL/hr, ity of infusion 17:45: 20:00 1,000 mL, [place] 1,000 mL 00 :00 IV Medical Infusion, Branch ONCE, 1 dose, On [facility] 05/10/22 at 1145, JOE cefpodoxime 2021-05- Yes [id number] 100mg Take 1 Univers 100 mg 2-17 12-25 tablet by ity of tablet 00:00: 05:59 mouth in [place] 00 :00 the [facility] Branch and 1 tablet in the evening. Do all this for 7 days. cefpodoxime 2021-05- Yes [id number] 100mg Take 1 Univers 100 mg 2-17 12-25 tablet by ity of tablet 00:00: 05:59 mouth in [place] 00 :00 the [facility] morning Branch and 1 tablet in the evening. Do all this for 7 days. cefpodoxime 2021-05- Yes [id number] 100mg Take 1 Univers 100 mg 2-17 [...] Infusion, Medical ONCE, 1 Branch dose, On [facility] 05/06/22 at 1800, JOE ketorolac 2021-05 No 15mg 15 mg, Unive rs (TORADOL) 2-15 12-15 Slow IV ity of injection 22:00: 22:19 Push, [place] 15 mg 00 :00 ONCE, 1 Medical dose, On Branch [facility] 05/06/22 at 1600, JOE NaCl 0.9% 2021-05- No 1000mL at 999 Uni vers (NS) bolus 2-15 12-15 mL/hr, ity of infusion 22:00: 23:41 1,000 mL, [place] 1,000 mL 00 :00 IV Medical Infusion, Branch ONCE, 1 dose, On [facility] 05/06/22 at 1600, JOE ondansetron 2021-05- No 8mg 8 mg, Slow Univers (ZOFRAN 2-15 12-15 IV Push, ity of (PF)) 21:15: 22:19 ONCE, 1 [place] injection 8 00 :00 dose, On Medi porfirio mg [facility] 05/06/22 at 1515, JOE ondansetron 2021-05 Yes [id number] 1-2 U nivers 4 mg tablet 2-15 tablets ity o f 00:00: every 8 [place] 00 hours as Medical needed for Branch nausea benzonatate 2021-05 Yes [id number] 200mg Take 1 Univers 200 mg 2-15 capsule by ity of capsule 00:00: mouth 3 [place] 00 (three) Medical times Branch daily as needed for Cough. albuterol 2021-05 Yes [id number] 2{puff} Inhale 2 Univers 90 2-15 Puffs ity of mcg/actuati 00:00: every 4 [place] on inhaler 00 (four) Medical hours as Branch needed for Wheezing or Shortness of Breath. butalbital- 2021-05 Yes [id number] 1{tbl} Take 1 Univers acetaminoph 2-15 tablet by ity of en-caff 00:00: mouth [place] 50-325-40 00 every 4 Medical mg tablet (four) Branch hours as needed (headache) . ondansetron 2021-05 Yes [id number] 1-2 U nivers 4 mg tablet 2-15 tablets ity o f 00:00: every 8 [place] 00 hours as Medical needed for Branch nausea benzonatate 2021-05 Yes [id number] 200mg Take 1 Univers 200 mg 2-15 capsule by ity of capsule 00:00: mouth 3 [place] 00 (three) Medical times Branch daily as needed for Cough. albuterol 2021-05 Yes [id number] 2{puff} Inhale 2 Univers 90 2-15 Puffs ity of mcg/actuati 00:00: every 4 [place] on inhaler 00 (four) Medical hours as Branch needed for Wheezing or Shortness of Breath. butalbital- 2021-05 Yes [id number] 1{tbl} Take 1 Univers acetaminoph 2-15 tablet by ity of en-caff 00:00: mouth [place] 50-325-40 00 every 4 Medical mg tablet (four) Branch hours as needed (headache) . ondansetron 2021-05 Yes [id number] 1-2 U nivers 4 mg tablet 2-15 tablets ity o f 00:00: every 8 [place] 00 hours as Medical needed for Branch nausea benzonatate 2021-05 Yes [id number] 200mg Take 1 Univers 200 mg 2-15 capsule by ity of capsule 00:00: mouth 3 [place] 00 (three) Medical times Branch daily as needed for Cough. albuterol 2021-05 Yes [id number] 2{puff} Inhale 2 Univers 90 2-15 Puffs ity of mcg/actuati 00:00: every 4 [place] on inhaler 00 (four) Medical hours as Branch needed for Wheezing or Shortness of Breath. butalbital- 2021-05 Yes [id number] 1{tbl} Take 1 Univers acetaminoph 2-15 tablet by ity of en-caff 00:00: mouth [place] 50-325-40 00 every 4 Medical mg tablet (four) Branch hours as needed (headache) . ondansetron 2021-05 Yes [id number] 1-2 U nivers 4 mg tablet 2-15 tablets ity o f 00:00: every 8 [place] 00 hours as Medical needed for Branch nausea benzonatate 2021-05 Yes [id number] 200mg Take 1 Univers 200 mg 2-15 capsule by ity of capsule 00:00: mouth 3 [place] 00 (three) Medical times Branch daily as needed for Cough. albuterol 2021-05 Yes [id number] 2{puff} Inhale 2 Univers 90 2-15 Puffs ity of mcg/actuati 00:00: every 4 [place] on inhaler 00 (four) Medical hours as Branch needed for Wheezing or Shortness of Breath. butalbital- 2021-05 Yes [id number] 1{tbl} Take 1 Univers acetaminoph 2-15 tablet by ity of en-caff 00:00: mouth [place] 50-325-40 00 every 4 Medical mg tablet (four) Branch hours as needed (headache) . ondansetron 2021-05 Yes [id number] 1-2 U nivers 4 mg tablet 2-15 tablets ity o f 00:00: every 8 [place] 00 hours as Medical needed for Branch nausea benzonatate 2021-05 Yes [id number] 200mg Take 1 Univers 200 mg 2-15 capsule by ity of capsule 00:00: mouth 3 [place] 00 (three) Medical times Branch daily as needed for Cough. albuterol 2021-05 Yes [id number] 2{puff} Inhale 2 Univers 90 2-15 Puffs ity of mcg/actuati 00:00: every 4 [place] on inhaler 00 (four) Medical hours as Branch needed for Wheezing or Shortness of Breath. butalbital- 2021-05 Yes [id number] 1{tbl} Take 1 Univers acetaminoph 2-15 tablet by ity of en-caff 00:00: mouth [place] 50-325-40 00 every 4 Medical mg tablet (four) Branch hours as needed (headache) . ondansetron 2021-05 Yes [id number] 1-2 U nivers 4 mg tablet 2-15 tablets ity o f 00:00: every 8 [place] 00 hours as Medical needed for Branch nausea benzonatate 2021-05 Yes [id number] 200mg Take 1 Univers 200 mg 2-15 capsule by ity of capsule 00:00: mouth 3 [place] 00 (three) Medical times Branch daily as needed for Cough. albuterol 2021-05 Yes [id number] 2{puff} Inhale 2 Univers 90 2-15 Puffs ity of mcg/actuati 00:00: every 4 [place] on inhaler 00 (four) Medical hours as Branch needed for Wheezing or Shortness of Breath. butalbital- 2021-05 Yes [id number] 1{tbl} Take 1 Univers acetaminoph 2-15 tablet by ity of en-caff 00:00: mouth [place] 50-325-40 00 every 4 Medical mg tablet (four) Branch hours as needed (headache) . nirmatrelvi 2021-05- Yes [id number] 2{tbl} Take 2 Univers r-ritonavir 2-15 12-21 tablets by i ty of (PAXLOVID, 00:00: 05:59 mouth [place] EUA,) 300 00 :00 the Medical mg (150 mg morning Branch x 2)-100 mg and 2 tablet tablets in the evening. Do all this for 5 days. nirmatrelvi 2021-05- Yes [id number] 2{tbl} Take 2 Univers r-ritonavir 2-15 12-21 tablets by i ty of (PAXLOVID, 00:00: 05:59 [place] EUA,) 300 00 :00 the Medical mg (150 mg morning Branch x 2)-100 mg and 2 tablet tablets in the evening. Do all this for 5 days. nirmatrelvi 2021-05- Yes [id number] 2{tbl} Take 2 Univers r-ritonavir 2-15 12-21 tablets by i ty of (PAXLOVID, 00:00: 05:59 [place] EUA,) 300 00 :00 the Medical mg (150 mg morning Branch x 2)-100 mg and 2 tablet tablets in the evening. Do all this for 5 days. nirmatrelvi 2021-05- Yes [id number] 2{tbl} Take 2 Univers r-ritonavir 2-15 - [...] :00 dose, On Medi porfirio ing tablet [place] Branch 4 mg 04/22/22 at 1645, Routine amoxicillin 2021-05 Yes [id number] 1{tbl} Take 1 Univers -clavulanat 2- [id number] tablet by i ty of e 875-125 00:00: mouth [place] mg per 00 every 12 Medical tablet (twelve) Branch hours. ondansetron 2021-05 Yes [id number] 4mg Take 1 Univers 4 mg 2- [id number] tablet by ity of disintegrat 00:00: mouth [place] ing tablet 00 every 8 Medica l (eight) Branch hours as needed for Nausea and Vomiting (N/V). amoxicillin 2021-05 Yes [id number] 1{tbl} Take 1 Univers -clavulanat 2- 264922 tablet by i ty of e 875-125 00:00: mouth [place] mg per 00 every 12 Medical tablet (twelve) Branch hours. ondansetron 2021-05 Yes [id number] 4mg Take 1 Univers 4 mg 2-01 [id number] tablet by ity of disintegrat 00:00: mouth [place] ing tablet 00 every 8 Medica l (eight) Branch hours as needed for Nausea and Vomiting (N/V). amoxicillin 2021-05 Yes [id number] 1{tbl} Take 1 Univers -clavulanat 2-01 [id number] tablet by i ty of e 875-125 00:00: mouth [place] mg per 00 every 12 Medical tablet (twelve) Branch hours. ondansetron 2021-05 Yes [id number] 4mg Take 1 Univers 4 mg 2-01 [id number] tablet by ity of disintegrat 00:00: mouth [place] ing tablet 00 every 8 Medica l (eight) Branch hours as needed for Nausea and Vomiting (N/V). amoxicillin 2021-05 Yes [id number] 1{tbl} Take 1 Univers -clavulanat 2-01 [id number] tablet by i ty of e 875-125 00:00: mouth [place] mg per 00 every 12 Medical tablet (twelve) Branch hours. ondansetron 2021-05 Yes [id number] 4mg Take 1 Univers 4 mg 2-01 [id number] tablet by ity of disintegrat 00:00: mouth [place] ing tablet 00 every 8 Medica l (eight) Branch hours as needed for Nausea and Vomiting (N/V). amoxicillin 2021-05 Yes [id number] 1{tbl} Take 1 Univers -clavulanat 2-01 [id number] tablet by i ty of e 875-125 00:00: mouth [place] mg per 00 every 12 Medical tablet (twelve) Branch hours. ondansetron 2021-05 Yes [id number] 4mg Take 1 Univers 4 mg 2- [id number] tablet by ity of disintegrat 00:00: mouth [place] ing tablet 00 every 8 Medica l (eight) Branch hours as needed for Nausea and Vomiting (N/V). amoxicillin 2021-05 Yes [id number] 1{tbl} Take 1 Univers -clavulanat 2-01 [id number] tablet by i ty of e 875-125 00:00: mouth [place] mg per 00 every 12 Medical tablet (twelve) Branch hours. ondansetron 2021-05 Yes [id number] 4mg Take 1 Univers 4 mg 2-01 [id number] tablet by ity of disintegrat 00:00: mouth [place] ing tablet 00 every 8 Medica l (eight) Branch hours as needed for Nausea and Vomiting (N/V). amoxicillin 2021-05 Yes [id number] 1{tbl} Take 1 Univers -clavulanat 2-01 [id number] tablet by i ty of e 875-125 00:00: mouth [place] mg per 00 every 12 Medical tablet (twelve) Branch hours. ondansetron 2021-05 Yes [id number] 4mg Take 1 Univers 4 mg 2-01 [id number] tablet by ity of disintegrat 00:00: mouth [place] ing tablet 00 every 8 Medica l (eight) Branch hours as needed for Nausea and Vomiting (N/V). amoxicillin 2021-05 Yes [id number] 1{tbl} Take 1 Univers -clavulanat 06-23 [id number] tablet by i ty of e 875-125 00:00: mouth [place] mg per 00 every 12 Medical tablet (twelve) Branch hours. ondansetron 2021-05 Yes [id number] 4mg Take 1 Univers 4 mg 06-23 [id number] tablet by ity of disintegrat 00:00: mouth [place] ing tablet 00 every 8 Medica l (eight) Branch hours as needed for Nausea and Vomiting (N/V). zoster 2021-05- No [id number] .5mL 0.5 mL by Univers vaccine, 0-14 10-15 9104 Intramuscu ity of recombinant 00:00: 04:59 lar route [place] (SHINGRIX, 00 :00 once now Medic al PF,) for 1 Branch injection dose. And repeat in 2-6 months zoster 2021-05- No [id number] .5mL 0.5 mL by Univers vaccine, 0-14 10-15 9104 Intramuscu ity of recombinant 00:00: 04:59 lar route [place] (SHINGRIX, 00 :00 once now Medic al PF,) for 1 Branch injection dose. And repeat in 2-6 months zoster 2021-05- No [id number] .5mL 0.5 mL by Univers vaccine, 0-14 [...] o f 1 mg tablet 19:28: at [place] [address] bedtime. Medical Branch traZODone 2021-0 Yes 50mg Take 50 mg Un matt 100 mg 9-27 by mouth ity of tablet 19:28: at [place] [address] bedtime. Medical Branch hydralAZINE 2021-0 Yes 25mg [...] 100 mg 04 (two) Medical tablet times [place] daily. amLODIPine 2021-0 Yes 10mg Take 10 mg U nivers (NORVASC) 9-27 by mouth ity of 10 mg 19:28: daily. [place] tablet 04 Medical Branch clonazePAM 2021-0 Yes 1mg Take 1 mg Un matt (KLONOPIN) 9-27 by mouth ity o f 1 mg tablet 19:28: at [place] [address] bedtime. Medical Branch traZODone 2021-0 Yes 50mg Take 50 mg Un matt 100 mg 9-27 by mouth ity of tablet 19:28: at [place] [address] bedtime. Medical Branch hydralAZINE 2021-0 Yes 25mg [...] o f 1 mg tablet 19:28: at [place] [address] bedtime. Medical Branch traZODone 2021-0 Yes 50mg Take 50 mg Un matt 100 mg 9-27 by mouth ity of tablet 19:28: at [place] [address] bedtime. Medical Branch hydralAZINE 2021-0 Yes 25mg [...] o f 1 mg tablet 19:28: at [place] [address] bedtime. Medical Branch traZODone 2021-0 Yes 50mg Take 50 mg Un matt 100 mg 9-27 by mouth ity of tablet 19:28: at [place] [address] bedtime. Medical Branch hydralAZINE 2021-0 Yes 25mg [...] o f 1 mg tablet 19:28: at [place] [address] bedtime. Medical Branch traZODone 2021-0 Yes 50mg Take 50 mg Un matt 100 mg 9- by mouth ity of tablet 19:28: at [place] [address] bedtime. Medical Branch hydralAZINE 2021-0 Yes 25mg [...] o f 1 mg tablet 19:28: at [place] [address] bedtime. Medical Branch traZODone 2022-0 Yes 50mg Take 50 mg Un matt 100 mg 9-27 by mouth ity of tablet 19:28: at [place] [address] bedtime. Medical Branch hydralAZINE 2-0 Yes 25mg [...] o f 1 mg tablet 19:28: at [place] [address] bedtime. Medical Branch traZODone 2-0 Yes 50mg Take 50 mg Un matt 100 mg 9-27 by mouth ity of tablet 19:28: at [place] [address] bedtime. Medical Branch hydralAZINE 2021-0 Yes 25mg [...] o f 1 mg tablet 19:28: at [place] [address] bedtime. Medical Branch traZODone 2022-0 Yes 50mg Take 50 mg Un matt 100 mg 9-27 by mouth ity of tablet 19:28: at [place] [address] bedtime. Medical Branch hydralAZINE 2-0 Yes 25mg [...] o f 1 mg tablet 19:28: at [place] [address] bedtime. Medical Branch traZODone 2-0 Yes 50mg Take 50 mg Un matt 100 mg 9-27 by mouth ity of tablet 19:28: at [place] [address] bedtime. Medical Branch hydralAZINE 2-0 Yes 25mg [...] o f 1 mg tablet 19:28: at [place] [address] bedtime. Medical Branch traZODone 2021-0 Yes 50mg Take 50 mg Un matt 100 mg 9-27 by mouth ity of tablet 19:28: at [place] [address] bedtime. Medical Branch hydralAZINE 2021-0 Yes 25mg [...] o f 1 mg tablet 19:28: at [place] [address] bedtime. Medical Branch traZODone 2021-0 Yes 50mg Take 50 mg Un matt 100 mg 9-27 by mouth ity of tablet 19:28: at [place] [address] bedtime. Medical Branch hydralAZINE 2021-0 Yes 25mg [...] o f 1 mg tablet 19:28: at [place] [address] bedtime. Medical Branch traZODone 2-0 Yes 50mg Take 50 mg Un matt 100 mg 9-27 by mouth ity of tablet 19:28: at [place] [address] bedtime. Medical Branch hydralAZINE 2-0 Yes 25mg [...] o f 1 mg tablet 19:28: at [place] [address] bedtime. Medical Branch traZODone 2021-0 Yes 50mg Take 50 mg Un matt 100 mg 9-27 by mouth ity of tablet 19:28: at [place] [address] bedtime. Medical Branch hydralAZINE 2021-0 Yes 25mg [...] o f 1 mg tablet 19:28: at [place] [address] bedtime. Medical Branch traZODone 2021-0 Yes 50mg Take 50 mg Un matt 100 mg 9-27 by mouth ity of tablet 19:28: at [place] [address] bedtime. Medical Branch hydralAZINE 2021-0 Yes 25mg [...] o f 1 mg tablet 19:28: at [place] [address] bedtime. Medical Branch traZODone 2021-0 Yes 50mg Take 50 mg Un matt 100 mg 9-27 by mouth ity of tablet 19:28: at [place] [address] bedtime. Medical Branch hydralAZINE 2021-0 Yes 25mg [...] o f 1 mg tablet 19:28: at [place] [address] bedtime. Medical Branch traZODone Yes 50mg Take 50 mg Un matt 100 mg 02-16 by mouth ity of tablet 19:28: at [place] [address] bedtime. Medical Branch cefpodoxime 2021- No [id number] 200mg Take 1 Univers 200 mg 02-16 tablet by ity of tablet 00:00: 04:59 mouth in [place] 00 :00 the Medical morning Branch and 1 tablet in the evening. Do all this for 3 days. cefpodoxime 2021- No [id number] 200mg Take 1 Univers 200 mg 02-16 [...] (MYCOLOG) 19:00: dose on [place] cream 00 [facility] Medical 02/11/22 at Branch 1400, Until Discontinu ed, Routine busPIRone 202-0 Yes 30mg 30 mg, Univer s (BUSPAR) 02-11 Oral, BID, ity o f tablet 30 18:00: First dose [place] mg 00 on [facility] Medical 02/11/22 at Branch 1300, Until Discontinu ed, Routine raltegravir 2021-0 Yes 400mg 400 mg, Un matt (ISENTRESS) 02-11 Oral, BID, it y of tablet 400 18:00: First dose [place] mg 00 on [facility] Medical 02/11/22 at Branch 1300, Until Discontinu ed, JOE metoprolol 2021-0 Yes 100mg 100 mg, Uni vers tartrate 02-11 Oral, BID, ity o f (LOPRESSOR) 18:00: First dose [place] tablet 100 00 on [facility] mg 02/11/22 at Branch 1300, Until Discontinu ed, Routine lisinopriL 2021-0 Yes 40mg 40 mg, Unive rs (PRINIVIL,Z 02-11 Oral, BID, it y of ESTRIL) 18:00: First dose [place] tablet 40 00 on [facility] mg 02/11/22 at Branch 1300, Until Discontinu ed, Routine emtricitabi 2021-0 Yes 1{tbl} 1 tablet, [facility] 02-[facility] Oral, ity of r alafen 18:00: DAILY, [place] (DESCOVY) 00 First dose Medi porfirio tablet 1 on [facility] tablet 02/11/22 at 1300, Until Discontinu ed, Routine ipratropium 2021-0 Yes .5mg 0.5 mg, Uni vers (ATROVENT) 02-11 Inhalation ity of 0.02 % 17:57: , MERY, [place] nebulizer 10 Starting Medica l solution on [facility] Branch 0.5 mg 02/11/22 at 1257, [...] Branch last modificati on) on [facility] 02/11/22 at 1230, Until Discontinu ed, Routine HYDROcodone 2021- No 1{tbl} 1 tablet, Univers -acetaminop 02-11 Oral, ity of hen (NORCO 14:11: 17:37 Q6HPRN, [place] 5) 5-325 mg 03 :24 Starting Medi porfirio tablet 1 on [facility] Branch tablet 02/11/22 at 0911, Until Tue02/12/22 at 1237, Routine, Pain (scale 7-10) melatonin Yes 3mg 3 mg, Univers (MELATIN) 02-11 Oral, ity of tablet 3 mg 14:08: QHSPRN, [place] 17 Starting Medical on [facility] Branch 02/11/22 at 0908, Until Discontinu ed, Routine, Insomnia acetaminoph 2021- No 1{tbl} 1 tablet, Univers en-codeine 02-11 Oral, ity of (TYLENOL 14:06: 17:37 Q6HPN, [place] #3) 300-30 19 :24 Starting Medic al mg tablet 1 on [facility] Branch tablet 02/11/22 at 0906, Until Tue02/12/22 at 1237, Routine, Pain (scale 4-6) sennosides- Yes 1{tbl} 1 tablet, Univers docusate 02-11 Oral, ity of sodium 14:06: QDAILYPRN, [place] (SENOKOT-S) 09 Starting Medi porfirio 8.6-50 mg on [facility] Branch per tablet 02/11/22 at 1 [...] mg 09:10: daily. [place] tablet 54 [facility] amLODIPine 0 Yes 10mg Take 10 mg U nivers (NORVASC) 02-11 by mouth ity of 10 mg 09:10: daily. [place] tablet 54 [facility] Branch piperacilli 2021- No 3.375g [...] of therapy: 72 hours iopamidol 2- No [id number] 60mL 60 mL, [facility] (ISOVUE 02-11 Intravenou [...] dose, On Medi porfirio mg [facility] 02/11/22 at 0045, JOE acetaminoph 2021- No 975mg 975 mg, U nivers en 02-11 Oral, ity of (TYLENOL) 05:15: 04:19 [place]CE, 1 [place] 975 00 :00 dose, On Medic al mg [facility] 02/11/22 at 0015, JOE emtricitabi 0 Yes [id number] Take one [facility] ne-tenofovi 9-12 po daily ity of r alafen 00:00: [place] (DESCOVY) 00 Medical tablet Branch emtricitabi 0 Yes [id number] Take one [facility] ne-tenofovi 9-12 po daily ity of r alafen 00:00: [place] (DESCOVY) Medical tablet Branch emtricitabi 0 Yes [id number] Take one [facility] ne-tenofovi 9-12 po daily ity of r alafen 00:00: [place] (DESCOVY) 00 Medical tablet Branch emtricitabi 0 Yes [id number] Take one [facility] ne-tenofovi 9-12 po daily ity of r alafen 00:00: [place] (DESCOVY) 00 Medical tablet Branch emtricitabi Yes [id number] Take one [facility] ne-tenofovi 9-12 po daily ity of r alafen 00:00: [place] (DESCOVY) 00 Medical tablet Branch emtricita Yes [id number] Take one [facility] ne-tenofovi 9-12 po daily ity of r alafen 00:00: [place] (DESCOVY) 00 Medical tablet Branch emtricita Yes [id number] Take one [facility] ne-tenofovi 9-12 po daily ity of r alafen 00:00: [place] (DESCOVY) 00 Medical tablet Branch emtricita Yes [id number] Take one [facility] ne-tenofovi 9-12 po daily ity of r alafen 00:00: [place] (DESCOVY) 00 Medical tablet Branch emtricita Yes [id number] Take one [facility] ne-tenofovi 9-12 po daily ity of r alafen 00:00: [place] (DESCOVY) 00 Medical tablet [facility] [id number] Take one [facility] ne-tenofovi 9-12 po daily ity of r alafen 00:00: [place] (DESCOVY) 00 Medical tablet Branch [facility] Yes [id number] Take one [facility] ne-tenofovi 9-12 po daily ity of r alafen 00:00: [place] (DESCOVY) 00 Medical tablet Branch emtricita Yes [id number] Take one [facility] ne-tenofovi 9-12 po daily ity of r alafen 00:00: [place] (DESCOVY) 00 Medical tablet Branch emtricita Yes [id number] Take one [facility] ne-tenofovi 9-12 po daily ity of r alafen 00:00: [place] (DESCOVY) 00 Medical tablet Branch emtricita Yes [id number] Take one [facility] ne-tenofovi 9-12 po daily ity of r alafen 00:00: [place] (DESCOVY) 00 Medical tablet Branch emtricita Yes [id number] Take one [facility] ne-tenofovi 9-12 po daily ity of r alafen 00:00: [place] (DESCOVY) 00 Medical tablet Branch emtricitabi 2021-0 Yes [id number] Take one [facility] ne-tenofovi 9-12 po daily ity of r alafen 00:00: [place] (DESCOVY) Medical tablet Branch emtricitabi 2021-0 Yes [id number] Take one [facility] ne-tenofovi 9-12 po daily ity of r alafen 00:00: [place] (DESCOVY) Medical tablet Branch naproxen 2021-0 Yes [id number] 500mg Take 1 U nivers (NAPROSYN) 7-24 tablet by ity of 500 mg 00:00: mouth in [place] tablet 00 the Medical morning Branch and 1 tablet in the evening. Take with meals. methocarbam 2021-0 Yes [id number] 500mg Take 1 [facility] oL 500 mg 7-24 tablet by ity o f tablet 00:00: mouth 4 [place] [address] ([facility]) [facility] times [place] daily. naproxen 2021-0 Yes [id number] 500mg Take 1 U nivers (NAPROSYN) 7-24 tablet by ity of 500 mg 00:00: mouth in [place] tablet 00 the Medical morning Branch and 1 tablet in the evening. Take with meals. methocarbam 2021-0 Yes [id number] 500mg Take 1 [facility] oL 500 mg 7-24 tablet by ity o f tablet 00:00: mouth 4 [place] ([facility]) [facility] times [place] daily. naproxen 2021-0 Yes [id number] 500mg Take 1 U nivers (NAPROSYN) 7-24 tablet by ity of 500 mg 00:00: mouth in [place] tablet 00 the Medical morning Branch and 1 tablet in the evening. Take with meals. methocarbam 2021-0 Yes [id number] 500mg Take 1 [facility] oL 500 mg 7-24 tablet by ity o f tablet 00:00: mouth 4 [place] ([facility]) [facility] times [place] daily. naproxen 2021-0 2022- No [id number] 500mg Take 1 [facility] (NAPROSYN) 7-24 10-14 tablet by ity of 500 mg 00:00: 00:00 mouth in [place] tablet 00 :00 the Medical morning Branch and 1 tablet in the evening. Take with meals. methocarbam 2021-0 2022- No [id number] 500mg Take 1 [facility] oL 500 mg 7-24 10-14 tablet by ity of tablet 00:00: 00:00 mouth 4 [place] 00 :00 (four) Medical times Branch daily. naproxen 2021- No [id number] 500mg Take 1 [facility] (NAPROSYN) 12-13 tablet by ity of 500 mg 00:00: 00:00 mouth in [place] tablet 00 :00 the Medical morning Branch and 1 tablet in the evening. Take with meals. methocarbam 2021- No [id number] 500mg Take 1 [facility] oL 500 mg [...] Branch traZODONE 2021- No Take by [facility] ers (DESYREL) 11-20 mouth at ity o f 10 mg/mL 09:10: 00:00 [place]time[place] oral 28 :00 Medical suspension Branch hydralAZINE Yes 25mg Take 25 mg [facility] (APRESOLINE 11-20 by mouth ity of ) 25 mg 08:47: daily. [place] tablet 47 Medical Branch cephALEXin 2021- No [id number] 500mg Take 1 [facility] (KEFLEX) 10-24 capsule [...] Indication s: acute pain buPROPion 0 Yes [id number] 150mg Take 1 U nivers XL 4-12 tablet by ity of (WELLBUTRIN 00:00: mouth [place] XL) 150 mg 00 daily. Medical 24 hr Branch tablet busPIRone 2021-0 Yes [id number] 30mg Take 1 Un matt 30 mg 4-12 tablet by ity of tablet 00:00: mouth 2 [place] 00 (two) Medical times Branch daily. SERTraline 2021-0 Yes [id number] 200mg Take 2 [facility] 100 mg 4-12 tablets by ity of tablet 00:00: mouth [place] 00 daily. Medical Branch buPROPion 0 Yes [id number] 150mg Take 1 U nivers XL 4-12 tablet by ity of (WELLBUTRIN 00:00: mouth [place] XL) 150 mg 00 daily. Medical 24 hr Branch tablet busPIRone 2021-0 Yes [id number] 30mg Take 1 Un matt 30 mg 4-12 tablet by ity of tablet 00:00: mouth 2 [place] 00 (two) Medical times Branch daily. SERTraline 2021-0 Yes [id number] 200mg Take 2 [facility] 100 mg 4-12 tablets by ity of tablet 00:00: mouth [place] 00 daily. Medical Branch buPROPion 2021-0 Yes [id number] 150mg Take 1 U nivers XL 4-12 tablet by ity of (WELLBUTRIN 00:00: mouth [place] XL) 150 mg 00 daily. Medical 24 hr Branch tablet busPIRone 2021-0 Yes [id number] 30mg Take 1 Un matt 30 mg 4-12 tablet by ity of tablet 00:00: mouth 2 [place] 00 (two) Medical times Branch daily. SERTraline 2021-0 Yes [id number] 200mg Take 2 [facility] 100 mg 4-12 tablets by ity of tablet 00:00: mouth [place] 00 daily. Medical Branch buPROPion 2021-0 Yes [id number] 150mg Take 1 U nivers XL 4-12 tablet by ity of (WELLBUTRIN 00:00: mouth [place] XL) 150 mg 00 daily. Medical 24 hr Branch tablet busPIRone 2021-0 Yes [id number] 30mg Take 1 Un matt 30 mg 4-12 tablet by ity of tablet 00:00: mouth 2 [place] 00 (two) Medical times Branch daily. SERTraline 0 Yes [id number] 200mg Take 2 [facility] 100 mg 4-12 tablets by ity of tablet 00:00: mouth [place] 00 daily. Medical Branch buPROPion 0 Yes [id number] 150mg Take 1 U nivers XL 4-12 tablet by ity of (WELLBUTRIN 00:00: mouth [place] XL) 150 mg 00 daily. Medical 24 hr Branch tablet busPIRone 2021-0 Yes [id number] 30mg Take 1 Un matt 30 mg 4-12 tablet by ity of tablet 00:00: mouth 2 (two) Medical times Branch daily. SERTraline 0 Yes [id number] 200mg Take 2 [facility] 100 mg 4-12 tablets by ity of tablet 00:00: mouth [place] 00 daily. Medical Branch buPROPion 0 Yes [id number] 150mg Take 1 U nivers XL 4-12 tablet by ity of (WELLBUTRIN 00:00: mouth [place] XL) 150 mg 00 daily. Medical 24 hr Branch tablet busPIRone 2021-0 Yes [id number] 30mg Take 1 Un matt 30 mg 4-12 tablet by ity of tablet 00:00: mouth 2 00 (two) Medical times Branch daily. SERTraline 2021-0 Yes [id number] 200mg Take 2 [facility] 100 mg 4-12 tablets by ity of tablet 00:00: mouth [place] 00 daily. Medical Branch buPROPion 2021-0 Yes [id number] 150mg Take 1 U nivers XL 4-12 tablet by ity of (WELLBUTRIN 00:00: mouth [place] XL) 150 mg 00 daily. Medical 24 hr Branch tablet busPIRone 2021-0 Yes [id number] 30mg Take 1 Un matt 30 mg 4-12 tablet by ity of tablet 00:00: mouth 2 00 (two) Medical times Branch daily. SERTraline 2021-0 Yes [id number] 200mg Take 2 [facility] 100 mg 4-12 tablets by ity of tablet 00:00: mouth [place] 00 daily. Medical Branch buPROPion 2021-0 Yes [id number] 150mg Take 1 U nivers XL 4-12 tablet by ity of (WELLBUTRIN 00:00: mouth [place] XL) 150 mg 00 daily. Medical 24 hr Branch tablet busPIRone 2021-0 Yes [id number] 30mg Take 1 Un matt 30 mg 4-12 tablet by ity of tablet 00:00: mouth 2 [place] 00 (two) Medical times Branch daily. SERTraline 2021-0 Yes [id number] 200mg Take 2 [facility] 100 mg 4-12 tablets by ity of tablet 00:00: mouth [place] 00 daily. Medical Branch buPROPion 2021-0 Yes [id number] 150mg Take 1 U nivers XL 4-12 tablet by ity of (WELLBUTRIN 00:00: mouth [place] XL) 150 mg 00 daily. Medical 24 hr Branch tablet busPIRone 2021-0 Yes [id number] 30mg Take 1 Un matt 30 mg 4-12 tablet by ity of tablet 00:00: mouth 2 [place] (two) Medical times Branch daily. SERTraline 2021-0 Yes [id number] 200mg Take 2 [facility] 100 mg 4-12 tablets by ity of tablet 00:00: mouth [place] 00 daily. Medical Branch buPROPion 2021-0 Yes [id number] 150mg Take 1 U nivers XL 4-12 tablet by ity of (WELLBUTRIN 00:00: mouth [place] XL) 150 mg 00 daily. Medical 24 hr Branch tablet busPIRone 2021-0 Yes [id number] 30mg Take 1 Un matt 30 mg 4-12 tablet by ity of tablet 00:00: mouth 2 [place] 00 (two) Medical times Branch daily. SERTraline 2021-0 Yes [id number] 200mg Take 2 [facility] 100 mg 4-12 tablets by ity of tablet 00:00: mouth [place] 00 daily. Medical Branch buPROPion 2021-0 Yes [id number] 150mg Take 1 U nivers XL 4-12 tablet by ity of (WELLBUTRIN 00:00: mouth [place] XL) 150 mg 00 daily. Medical 24 hr Branch tablet busPIRone 2021-0 Yes [id number] 30mg Take 1 Un matt 30 mg 4-12 tablet by ity of tablet 00:00: mouth 2 [place] 00 (two) Medical times Branch daily. SERTraline 2021-0 Yes [id number] 200mg Take 2 [facility] 100 mg 4-12 tablets by ity of tablet 00:00: mouth [place] 00 daily. Medical Branch buPROPion 2021-0 Yes [id number] 150mg Take 1 U nivers XL 4-12 tablet by ity of (WELLBUTRIN 00:00: mouth [place] XL) 150 mg 00 daily. Medical 24 hr Branch tablet busPIRone 2021-0 Yes [id number] 30mg Take 1 Un matt 30 mg 4-12 tablet by ity of tablet 00:00: mouth 2 [place] 00 (two) Medical times Branch daily. SERTraline 2021-0 Yes [id number] 200mg Take 2 [facility] 100 mg 4-12 tablets by ity of tablet 00:00: mouth [place] 00 daily. Medical Branch buPROPion 2021-0 Yes [id number] 150mg Take 1 U nivers XL 4-12 tablet by ity of (WELLBUTRIN 00:00: mouth [place] XL) 150 mg 00 daily. Medical 24 hr Branch tablet busPIRone 2021-0 Yes [id number] 30mg Take 1 Un matt 30 mg 4-12 tablet by ity of tablet 00:00: mouth 2 00 (two) Medical times Branch daily. SERTraline 2021-0 Yes [id number] 200mg Take 2 [facility] 100 mg 4-12 tablets by ity of tablet 00:00: mouth [place] 00 daily. Medical Branch buPROPion 2021-0 Yes [id number] 150mg Take 1 U nivers XL 4-12 tablet by ity of (WELLBUTRIN 00:00: mouth [place] XL) 150 mg 00 daily. Medical 24 hr Branch tablet busPIRone 2021-0 Yes [id number] 30mg Take 1 Un matt 30 mg 4-12 tablet by ity of tablet 00:00: mouth 2 [place] 00 (two) Medical times Branch daily. SERTraline 2021-0 Yes [id number] 200mg Take 2 [facility] 100 mg 4-12 tablets by ity of tablet 00:00: mouth [place] 00 daily. Medical Branch buPROPion 2021-0 Yes [id number] 150mg Take 1 U nivers XL 4-12 tablet by ity of (WELLBUTRIN 00:00: mouth [place] XL) 150 mg 00 daily. Medical 24 hr Branch tablet busPIRone 2021-0 Yes [id number] 30mg Take 1 Un matt 30 mg 4-12 tablet by ity of tablet 00:00: mouth 2 [place] 00 (two) Medical times Branch daily. SERTraline 2021-0 Yes [id number] 200mg Take 2 [facility] 100 mg 4-12 tablets by ity of tablet 00:00: mouth [place] 00 daily. Medical Branch buPROPion 2021-0 Yes [id number] 150mg Take 1 U nivers XL 4-12 tablet by ity of (WELLBUTRIN 00:00: mouth [place] XL) 150 mg 00 daily. Medical 24 hr Branch tablet busPIRone 2021-0 Yes [id number] 30mg Take 1 Un matt 30 mg 4-12 tablet by ity of tablet 00:00: mouth 2 [place] 00 (two) Medical times Branch daily. SERTraline 0 Yes [id number] 200mg Take 2 [facility] 100 mg 4-12 tablets by ity of tablet 00:00: mouth [place] 00 daily. Medical Branch buPROPion 2021-0 Yes [id number] 150mg Take 1 U nivers XL 4-12 tablet by ity of (WELLBUTRIN 00:00: mouth [place] XL) 150 mg 00 daily. Medical 24 hr Branch tablet busPIRone 2021-0 Yes [id number] 30mg Take 1 Un matt 30 mg 4-12 tablet by ity of tablet 00:00: mouth 2 [place] 00 (two) Medical times Branch daily. SERTraline 2021-0 Yes [id number] 200mg Take 2 [facility] 100 mg 4-12 tablets by ity of tablet 00:00: mouth [place] 00 daily. Medical Branch buPROPion 2021-0 Yes [id number] 150mg Take 1 U nivers XL 4-12 tablet by ity of (WELLBUTRIN 00:00: mouth [place] XL) 150 mg 00 daily. Medical 24 hr Branch tablet busPIRone 2021-0 Yes [id number] 30mg Take 1 Un matt 30 mg 4-12 tablet by ity of tablet 00:00: mouth 2 [place] 00 (two) Medical times Branch daily. SERTraline 2021-0 Yes [id number] 200mg Take 2 [facility] 100 mg 4-12 tablets by ity of tablet 00:00: mouth [place] 00 daily. Medical Branch raltegravir 2022-0 Yes [id number] 400mg Take 1 [facility] (ISENTRESS) 3-28 tablet by ity of 400 mg 00:00: mouth 2 [place] tablet 00 (two) Medical times Branch daily. raltegravir 2-0 Yes [id number] 400mg Take 1 [facility] (ISENTRESS) 3-28 tablet by ity of 400 mg 00:00: mouth 2 [place] tablet 00 (two) Medical times Branch daily. raltegravir 2-0 Yes [id number] 400mg Take 1 [facility] (ISENTRESS) 3-28 tablet by ity of 400 mg 00:00: mouth 2 [place] tablet 00 (two) Medical times Branch daily. raltegravir 2021-0 Yes [id number] 400mg Take 1 [facility] (ISENTRESS) 3-28 tablet by ity of 400 mg 00:00: mouth 2 [place] tablet 00 (two) Medical times Branch daily. raltegravir 2021-0 Yes [id number] 400mg Take 1 [facility] (ISENTRESS) 3-28 tablet by ity of 400 mg 00:00: mouth 2 [place] tablet 00 (two) Medical times Branch daily. raltegravir 2021-0 Yes [id number] 400mg Take 1 [facility] (ISENTRESS) 3-28 tablet by ity of 400 mg 00:00: mouth 2 [place] tablet 00 (two) Medical times Branch daily. raltegravir 2021-0 Yes [id number] 400mg Take 1 [facility] (ISENTRESS) 3-28 tablet by ity of 400 mg 00:00: mouth 2 [place] tablet 00 (two) Medical times Branch daily. raltegravir 2-0 Yes [id number] 400mg Take 1 [facility] (ISENTRESS) 3-28 tablet by ity of 400 mg 00:00: mouth 2 [place] tablet 00 (two) Medical times Branch daily. raltegravir 2-0 Yes [id number] 400mg Take 1 [facility] (ISENTRESS) 3-28 tablet by ity of 400 mg 00:00: mouth 2 [place] tablet 00 (two) Medical times Branch daily. raltegravir 2-0 Yes [id number] 400mg Take 1 [facility] (ISENTRESS) 3-28 tablet by ity of 400 mg 00:00: mouth 2 [place] tablet 00 (two) Medical times Branch daily. raltegravir 2-0 Yes [id number] 400mg Take 1 [facility] (ISENTRESS) 3-28 tablet by ity of 400 mg 00:00: mouth 2 [place] tablet 00 (two) Medical times Branch daily. raltegravir 2021-0 Yes [id number] 400mg Take 1 [facility] (ISENTRESS) 3-28 tablet by ity of 400 mg 00:00: mouth 2 [place] tablet 00 (two) Medical times Branch daily. raltegravir 2021-0 Yes [id number] 400mg Take 1 [facility] (ISENTRESS) 3-28 tablet by ity of 400 mg 00:00: mouth 2 [place] tablet 00 (two) Medical times Branch daily. raltegravir 2021-0 Yes [id number] 400mg Take 1 [facility] (ISENTRESS) 3-28 tablet by ity of 400 mg 00:00: mouth 2 [place] tablet 00 (two) Medical times Branch daily. raltegravir 2021-0 Yes [id number] 400mg Take 1 [facility] (ISENTRESS) 3-28 tablet by ity of 400 mg 00:00: mouth 2 [place] tablet 00 (two) Medical times Branch daily. raltegravir 2021-0 Yes [id number] 400mg Take 1 [facility] (ISENTRESS) 3-28 tablet by ity of 400 mg 00:00: mouth 2 [place] tablet 00 (two) Medical times Branch daily. raltegravir 2021-0 Yes [id number] 400mg Take 1 [facility] (ISENTRESS) 3-28 tablet by ity of 400 mg 00:00: mouth 2 [place] tablet 00 (two) Medical times Branch daily. raltegravir 2021-0 Yes [id number] 400mg Take 1 [facility] (ISENTRESS) 3-28 tablet by ity of 400 mg 00:00: mouth 2 [place] tablet 00 (two) Medical times Branch daily. LORazepam 1 2021-0 2021- No [id number] 1mg Take 1 [facility] mg tablet 3-21 [...] times a tablet day. emtricitabi 202- No [id number] Take one [facility] ne-tenofovi -20 09-12 po daily ity of r alafen 00:00: 00:00 [place] (DESCOVY) 00 :00 Medical tablet Branch metoprolol Yes [id number] Take 1 [place] tartrate 7-26 tablet Health (Lopressor) 00:00: (100 mg 100 MG 00 total) by tablet mouth 2 (two) times a day AND 0.5 tablets (50 mg total) every night. metoprolol Yes [id number] Take 1 [place] tartrate 7-26 tablet Health [...] (affected area in groin) hydrALAZINE Yes 50mg Q.[id number] Take 50 mg [facility] (APRESOLINE 7-19 [id number] mouth [facility] [address] ) 50 MG [...] (affected area in groin) hydrALAZINE Yes 50mg Q.[id number] Take 50 mg [facility] (APRESOLINE 7-19 [id number] [facility] mouth [facility] ) 50 MG [...] (affected area in groin) hydrALAZINE Yes 50mg Q.[id number] Take 50 mg [facility] (APRESOLINE 7-19 [id number] mouth [facility] ) 50 MG [...] area in groin) hydrALAZINE 0 Yes 50mg Q.[id number] Take 50 mg [facility] (APRESOLINE 7-19 [id number] [facility] mouth [facility] ) 50 MG [...] area in groin) hydrALAZINE 0 Yes 50mg Q.[id number] Take 50 mg [facility] (APRESOLINE 7-19 [id number] [facility] mouth [facility] ) 50 MG [...] (affected area in groin) hydrALAZINE Yes 50mg Q.[id number] Take 50 mg [facility] (APRESOLINE 7-19 [id number] [address] mouth [facility] ) 50 MG [...] (affected area in groin) hydrALAZINE Yes 50mg Q.[id number] Take 50 mg [facility] (APRESOLINE 7-19 [id number] [address] mouth [facility] ) 50 MG [...] area in groin) hydrALAZINE 0 Yes 50mg Q.[id number] Take 50 mg [facility] (APRESOLINE 7-19 [id number] [address] mouth [facility] ) 50 MG [...] (affected area in groin) hydrALAZINE Yes 50mg Q.[id number] Take 50 mg [facility] (APRESOLINE 7-19 [id number] [address] mouth [facility] [address] ) 50 MG [...] (affected area in groin) hydrALAZINE Yes 50mg Q.[id number] Take 50 mg [facility] (APRESOLINE 7-19 [id number] [address] mouth 3 [facility] ) 50 MG [...] area in groin) hydrALAZINE 0 Yes 50mg Q.[id number] Take 50 mg [facility] (APRESOLINE 7-19 [id number] [address] mouth [facility] ) 50 MG [...] (affected area in groin) hydrALAZINE Yes 50mg Q.[id number] Take 50 mg [facility] (APRESOLINE 7-19 [id number] by mouth 3 [facility] ) 50 MG [...] (affected area in groin) hydrALAZINE Yes 50mg Q.[id number] Take 50 mg [facility] (APRESOLINE 7-19 [id number] by mouth 3 [facility] ) 50 MG [...] (affected area in groin) hydrALAZINE Yes 50mg Q.[id number] Take 50 mg [facility] (APRESOLINE 7-[id number] mouth [address] ) 50 MG [...] area in groin) hydrALAZINE 0 Yes 50mg Q.[id number] Take 50 mg [facility] (APRESOLINE 7-[id number] mouth [facility] [address] ) 50 MG [...] (affected area in groin) hydrALAZINE Yes 50mg Q.[id number] Take 50 mg [facility] (APRESOLINE 7-19 [id number] [address] mouth [facility] ) 50 MG [...] area in groin) hydrALAZINE 0 Yes 50mg Q.[id number] Take 50 mg [facility] (APRESOLINE 7-19 [id number] [address] mouth [facility] ) 50 MG [...] area in groin) hydrALAZINE 0 Yes 50mg Q.[id number] Take 50 mg [facility] (APRESOLINE 7-19 [id number] [address] mouth [facility] [address] ) 50 MG [...] (affected area in groin) hydrALAZINE Yes 50mg Q.[id number] Take 50 mg [facility] (APRESOLINE 7-19 [id number] by mouth [facility] [address] ) 50 MG [...] area in groin) hydrALAZINE 0 Yes 50mg Q.[id number] Take 50 mg [facility] (APRESOLINE 7-[id number] mouth [facility] ) 50 MG [...] area in groin) hydrALAZINE 2020-0 Yes 50mg Q.[id number] Take 50 mg [facility] (APRESOLINE 7-[id number] mouth [facility] [address] ) 50 MG [...] (affected area in groin) hydrALAZINE Yes 50mg Q.[id number] Take 50 mg [facility] (APRESOLINE 7-[id number] mouth [address] ) 50 MG [...] (affected area in groin) hydrALAZINE Yes 50mg Q.[id number] Take 50 mg [facility] (APRESOLINE 7-19 [id number] mouth [facility] ) 50 MG [...] area in groin) hydrALAZINE 0 Yes 50mg Q.[id number] Take 50 mg [facility] (APRESOLINE 7-19 [id number] [address] mouth [facility] [address] ) 50 MG [...] (affected area in groin) hydrALAZINE Yes 50mg Q.[id number] Take 50 mg [facility] (APRESOLINE 7-19 [id number] mouth [facility] [address] ) 50 MG [...] (affected area in groin) hydrALAZINE Yes 50mg Q.[id number] Take 50 mg [facility] (APRESOLINE 7-19 [id number] mouth [address] ) 50 MG [...] area in groin) hydrALAZINE 0 Yes 50mg Q.[id number] Take 50 mg [facility] (APRESOLINE 7-[id number] mouth [address] ) 50 MG [...] area in groin) hydrALAZINE 2021-0 Yes 50mg Q.[id number] Take 50 mg [facility] (APRESOLINE 7-[id number] mouth [address] ) 50 MG [...] a day as needed for headaches. albuterol 2020-0 Yes 1{puff} Q4H Inhale 1 M ethodi [...] (affected area in groin) hydrALAZINE Yes 50mg Q.[id number] Take 50 mg [facility] (APRESOLINE 7-19 [id number] [address] mouth [facility] [address] ) 50 MG [...] area in groin) hydrALAZINE 0 Yes 50mg Q.[id number] Take 50 mg [facility] (APRESOLINE 7-[id number] mouth [address] ) 50 MG [...] area in groin) hydrALAZINE 0 Yes 50mg Q.[id number] Take 50 mg [facility] (APRESOLINE 7-[id number] mouth [address] ) 50 MG [...] (affected area in groin) hydrALAZINE Yes 50mg Q.[id number] Take 50 mg [facility] (APRESOLINE 7-[id number] mouth [facility] [address] ) 50 MG [...] (affected area in groin) hydrALAZINE Yes 50mg Q.[id number] Take 50 mg [facility] (APRESOLINE 7-19 [id number] [address] mouth [facility] ) 50 MG [...] area in groin) hydrALAZINE 2021-0 Yes 50mg Q.[id number] Take 50 mg [facility] (APRESOLINE 7-[id number] mouth [facility] [address] ) 50 MG [...] (affected area in groin) hydrALAZINE Yes 50mg Q.[id number] Take 50 mg [facility] (APRESOLINE 7-19 [id number] mouth [facility] [address] ) 50 MG [...] (affected area in groin) hydrALAZINE Yes 50mg Q.[id number] Take 50 mg [facility] (APRESOLINE 7-[id number] mouth [facility] [address] ) 50 MG [...] area in groin) hydrALAZINE 0 Yes 50mg Q.[id number] Take 50 mg [facility] (APRESOLINE 7-[id number] mouth [address] ) 50 MG [...] 10:51: [facility]. [facility] l nystatin-tr 0 Yes [id number] Apply to [facility] 11-25 area(s) 3 ity of cream 00:00: (three) [place] 00 times Medical daily. Branch nystatin-tr 2021-0 Yes [id number] Apply to [facility] iamcinolone 7-06 area(s) 3 ity of cream 00:00: (three) [place] 00 times Medical daily. Branch nystatin-tr 2021-0 Yes [id number] Apply to [facility] iamcinolone 7-06 area(s) 3 ity of cream 00:00: (three) [place] 00 times Medical daily. Branch nystatin-tr 2021-0 Yes [id number] Apply to [facility] iamcinolone 7-06 area(s) 3 ity of cream 00:00: (three) [place] 00 times Medical daily. Branch nystatin-tr 2021-0 Yes [id number] Apply to [facility] iamcinolone 7-06 area(s) 3 ity of cream 00:00: (three) [place] 00 times Medical daily. Branch nystatin-tr 2021-0 Yes [id number] Apply to [facility] iamcinolone 7-06 area(s) 3 ity of cream 00:00: (three) [place] 00 times Medical daily. Branch nystatin-tr 2021-0 Yes [id number] Apply to [facility] iamcinolone 7-06 area(s) 3 ity of cream 00:00: (three) [place] 00 times Medical daily. Branch nystatin-tr 2021-0 Yes [id number] Apply to [facility] iamcinolone 7-06 area(s) 3 ity of cream 00:00: (three) [place] 00 times Medical daily. Branch nystatin-tr 2021-0 Yes [id number] Apply to [facility] iamcinolone 7-06 area(s) 3 ity of cream 00:00: (three) [place] 00 times Medical daily. Branch nystatin-tr 2021-0 Yes [id number] Apply to [facility] iamcinolone 7-06 area(s) 3 ity of cream 00:00: (three) [place] 00 times Medical daily. Branch nystatin-tr 2021-0 Yes [id number] Apply to [facility] iamcinolone 7-06 area(s) 3 ity of cream 00:00: (three) [place] 00 times Medical daily. Branch nystatin-tr 2021-0 Yes [id number] Apply to [facility] iamcinolone 7-06 area(s) 3 ity of cream 00:00: (three) [place] 00 times Medical daily. Branch nystatin-tr 2021-0 Yes [id number] Apply to [facility] iamcinolone 7-06 area(s) 3 ity of cream 00:00: (three) [place] 00 times Medical daily. Branch nystatin-tr 1-0 Yes [id number] Apply to [facility] iamcinolone 7-06 area(s) 3 ity of cream 00:00: (three) [place] 00 times Medical daily. Branch nystatin-tr 1-0 Yes [id number] Apply to [facility] iamcinolone 7-06 area(s) 3 ity of cream 00:00: (three) [place] 00 times Medical daily. Branch nystatin-tr 2020-0 Yes [id number] Apply to [facility] iamcinolone 7-06 area(s) 3 ity of cream 00:00: (three) [place] 00 times Medical daily. Branch nystatin-tr 2020-0 Yes [id number] Apply to [facility] iamcinolone 7-06 area(s) 3 ity of cream 00:00: (three) [place] 00 times Medical daily. Branch nystatin-tr 2020-0 Yes [id number] Apply to [facility] iamcinolone 7-06 area(s) 3 ity of cream 00:00: (three) [place] 00 times Medical daily. Branch budesonide- 2020-0 2020- No 1{puff} QD Inhale 1 [facility] formoteroL 625 06-[address] (SYMBICORT) 14:37: 00:00 morning. [facility] 160-4.5 02 :00 l mcg/actuati on inhaler hydrALAZINE Yes [id number] 50mg Q.[id number] Take 1 [facility] (Apresoline 6-11 [id number] tablet (50 Health ) 50 MG 00:00: 3D mg total) tablet 00 by mouth 3 (three) times a day. hydrALAZINE 0 Yes [id number] 50mg [id number] Take 1 [place] (Apresoline 6-11 [id number] tablet (50 Health ) 50 MG 00:00: 3D mg total) tablet 00 by mouth 3 (three) times a day. Breztri 2020-0 Yes [facility] Aerosphere 6-09 Health 160-9-4.8 00:00: MCG/ACT 00 aerosol Breztri 2021-0 Yes [place] Aerosphere 6-09 Health 160-9-4.8 00:00: [...] % 00:00: ointment 00 nystatin 2020- No [id number] Q.25D Take 5 mL [facility] (MYCOSTATIN 10-06 [...] ia 4-10 (Same as: l 14:00: Norvasc) [place] 00 emtricitabi No Notes: Caesar lisa ne 200 MG / 4-10 (Same as: l tenofovir 14:00: Descovy) Herm ariel alafenamide 00 Non-formul 25 MG Oral nancy Tablet [Descovy] pantoprazol No Notes: Caesar lisa e 4-10 Tablet l 14:00: should not [place] 00 be chewed or crushed. (Same as: Protonix) Amiodarone No Notes: Memor ia 4-10 (Same as: l 14:00: Cordarone) Amlodipine No Notes: Memor ia 4-10 (Same as: l 14:00: Norvasc) [place] 00 emtricitabi No Notes: Caesar lisa ne [...] e 4-10 Tablet l 14:00: should not [place] 00 be chewed or crushed. (Same as: [...] e 4-10 Tablet l 14:00: should not [place] 00 be chewed or crushed. (Same as: Protonix) Amiodarone No Notes: Memor ia 4-10 (Same as: l 14:00: Cordarone) Amlodipine No Notes: Memor ia 4-10 (Same as: l 14:00: Norvasc) [place] 00 emtricitabi No Notes: Caesar lisa ne [...] ia 4-10 (Same as: l 14:00: Zoloft) [place] 00 pantoprazol No Notes: Caesar lisa e 4-10 Tablet l 14:00: should not [place] 00 be chewed or crushed. (Same as: Protonix) Amiodarone No Notes: Memor ia 4-10 (Same as: l 14:00: Cordarone) [place] 00 Amlodipine No Notes: Memor ia 4-10 (Same as: l 14:00: Norvasc) [place] 00 emtricitabi No Notes: Caesar lisa ne 200 MG / 4-10 (Same as: l tenofovir 14:00: Descovy) Herm ariel alafenamide 00 Non-formul 25 MG Oral nancy Tablet [Descovy] Sertraline No Notes: Memor ia 4-10 (Same as: l 14:00: Zoloft) [place] 00 pantoprazol No Notes: Caesar lisa e 4-10 Tablet l 14:00: should not [place] 00 be chewed or crushed. (Same as: [...] M emoria 4-10 interfere l 02:00: w/enteral [place] 00 feeds - Take 1 hr before [...] M emoria 4-10 interfere l 02:00: w/enteral [place] 00 feeds - Take 1 hr before or 2 hr after antacids, dairy pdt, meals & minerals - On empty stomach. For patients unable to swallow tablet, dissolve in 10mL - 30mL of water or juice and stir before giving. (Same As: Carafate) Saline No Notes: Memoria Flush 0.9% 4-10 (Same as: l 02:00: BD [place] Posiflush) Eliquis No Notes: Memoria 4-10 Same [...] 0.9% 4-10 (Same as: l 02:00: BD [place] Posiflush) Eliquis No Notes: Memoria 4-10 Same [...] Memoria 4-10 Same as: l 02:00: Eliquis [place] Hydralazine No Notes: Caesar lisa Hydrochlori 4-10 (Same as: l de 50 MG 02:00: Apresoline Her mitchell Oral Tablet 00 ) May interfere w/enteral feedings Take With Food Sucralfate No Notes: May M emoria 4-10 interfere l 02:00: w/enteral [place] 00 feeds - Take 1 hr before [...] Memoria 4-10 Same as: l 02:00: Eliquis [place] Hydralazine No Notes: Caesar lisa Hydrochlori 4-10 (Same as: l de 50 MG 02:00: Apresoline Her mitchell Oral Tablet 00 ) May interfere w/enteral feedings Take With Food Sucralfate No Notes: May M emoria 4-10 interfere l 02:00: w/enteral [place] 00 feeds - Take 1 hr before [...] not exceed l #3 00:12: 4gm/day of [place] acetaminop hen. (Same as: Tylenol with Codeine # 3) acetaminoph No Notes: Do M emoria en-codeine 4-10 not exceed l #3 00:12: 4gm/day of [place] acetaminop hen. (Same as: Tylenol with Codeine [...] oria - tab, l 22:00: Route: PO, [place] 00 Drug form: TAB, BID, Dosing Weight 97.273, kg, Start date: 08/29/20 17:00:00 CDT, Duration: 30 day, Stop date: 09/28/20 9:00:00 CDT metoprolol 2020-0 No 100 mg, 1 Me moria tartrate -09 tab, l 22:00: Route: PO, [place] Drug form: TAB, BID, Dosing Weight 97.273, [...] oria 4-09 tab, l 22:00: Route: PO, [place] 00 Drug form: TAB, BID, Dosing Weight [...] oria 4-09 tab, l 22:00: Route: PO, [place] 00 Drug form: TAB, BID, Dosing Weight [...] tartrate 4-09 tab, l 22:00: Route: PO, [place] Drug form: TAB, BID, Dosing Weight 97.273, [...] Notes: Memoria 4-09 (Same l 17:07: as:MORPhin [place] 00 e Sulfate) Morphine No Notes: Memoria 4-09 (Same l 17:07: as:MORPhin [place] 00 e Sulfate) Morphine No Notes: Memoria 4-09 (Same l 17:07: as:MORPhin [place] 00 e Sulfate) Morphine No Notes: Memoria 4-09 (Same l 17:07: as:MORPhin [place] 00 e Sulfate) buPROPion No 150 mg, [...] 08-29 Drug form: l 15:40: INJ, ONCE, [place] 00 Stop date: 08/29/20 10:40:00 CDT neostigmine [...] 30 tab, 0 coated Refill(s), tablet Pharmacy: [facility], 162.56, cm, 08/29/20 5:30:00 CDT, Height, 97.273, kg, 08/29/20 5:30:00 CDT, Weight pantoprazol 2021-0 Yes 40 mg = 1 M emoria e 40 mg 4-09 tab, PO, l oral 15:27: Daily, # [place] enteric 00 30 tab, 0 coated Refill(s), tablet Pharmacy: [facility] 149, 162.56, cm, 08/29/20 5:30:00 CDT, Height, 97.273, kg, 08/29/20 5:30:00 CDT, Weight pantoprazol 1-0 Yes 40 mg = 1 M emoria e 40 mg 4-09 tab, PO, l oral 15:27: Daily, # [place] enteric 00 30 tab, 0 coated Refill(s), tablet [facility], 162.56, cm, 08/29/20 5:30:00 CDT, Height, 97.273, kg, 08/29/20 5:30:00 CDT, Weight pantoprazol 1-0 Yes 40 mg = 1 M emoria e 40 mg 4-09 tab, PO, l oral 15:27: Daily, # [place] enteric 00 30 tab, 0 coated Refill(s), tablet [facility]: [facility], 162.56, cm, 08/29/20 5:30:00 CDT, Height, 97.273, kg, 08/29/20 5:30:00 CDT, Weight pantoprazol 1-0 Yes 40 mg = 1 M emoria e 40 mg 4-09 tab, PO, l oral 15:27: Daily, # [place] enteric 00 30 tab, 0 coated Refill(s), tablet [facility]: [facility], 162.56, cm, 08/29/20 5:30:00 CDT, Height, 97.273, kg, 08/29/20 5:30:00 CDT, Weight pantoprazol 1-0 Yes 40 mg = 1 M emoria e 40 mg 4-09 tab, PO, l oral 15:27: Daily, # [place] enteric 00 30 tab, 0 coated Refill(s), tablet Pharm[facility]: [facility], 162.56, cm, 08/29/20 5:30:00 CDT, Height, 97.273, kg, 08/29/20 5:30:00 CDT, Weight pantoprazol 2020-0 Yes 40 mg = 1 M emoria e 40 mg 4-09 tab, PO, l oral 15:27: Daily, # [place] enteric 00 30 tab, 0 coated Refill(s), tablet Pharmacy: [facility] 149, 162.56, cm, 08/29/20 5:30:00 CDT, Height, 97.273, kg, 08/29/20 5:30:00 CDT, Weight pantoprazol 2020-0 No 40 mg = 1 M emoria e 40 mg 4-09 tab, PO, l oral 15:26: Daily, # [place] enteric 00 30 tab, 0 coated Refill(s) tablet sucralfate 2020-0 Yes 1 gm = 1 Mem oria 1 g oral 4-09 tab, PO, l tablet 15:26: Q12H, # 28 Skylar nn 00 tab, 0 Refill(s), Pharmacy: [facility] 149, 162.56, cm, 08/29/20 5:30:00 CDT, Height, 97.273, kg, 08/29/20 5:30:00 CDT, Weight pantoprazol 2020-0 No 40 mg = 1 M emoria e 40 mg 4-09 tab, PO, l oral 15:26: Daily, # [place] enteric 00 30 tab, 0 coated Refill(s) tablet sucralfate 2020-0 Yes 1 gm = 1 Mem oria 1 g oral 4-09 tab, PO, l tablet 15:26: Q12H, # 28 Skylar nn 00 tab, 0 Refill(s), Pharmacy: [place] [id number], 162.56, cm, 08/29/20 5:30:00 CDT, Height, 97.273, kg, 08/29/20 5:30:00 CDT, Weight pantoprazol 2020-0 No 40 mg = 1 M emoria e 40 mg 4-09 tab, PO, l oral 15:26: Daily, # [place] enteric 00 30 tab, 0 coated Refill(s) tablet sucralfate 2020-0 Yes 1 gm = 1 Mem oria 1 g oral 4-09 tab, PO, l tablet 15:26: Q12H, # 28 Skylar nn 00 tab, 0 Refill(s), Pharmacy: [facility] 149, 162.56, cm, 08/29/20 5:30:00 CDT, Height, 97.273, kg, 08/29/20 5:30:00 CDT, Weight pantoprazol 2020-0 No 40 mg = 1 M emoria e 40 mg 4-09 tab, PO, l oral 15:26: Daily, # [place] enteric 00 30 tab, 0 coated Refill(s) tablet sucralfate 2020-0 Yes 1 gm = 1 Mem oria 1 g oral 4-09 tab, PO, l tablet 15:26: Q12H, # 28 Skylar nn 00 tab, 0 Refill(s), Pharmacy: [facility] 149, 162.56, cm, 08/29/20 5:30:00 CDT, Height, 97.273, kg, 08/29/20 5:30:00 CDT, Weight pantoprazol 2020-0 No 40 mg = 1 M emoria e 40 mg 4-09 tab, PO, l oral 15:26: Daily, # [place] enteric 00 30 tab, 0 coated Refill(s) tablet sucralfate 2020-0 Yes 1 gm = 1 Mem oria 1 g oral 4-09 tab, PO, l tablet 15:26: Q12H, # 28 Skylar nn 00 tab, 0 Refill(s), Pharmacy: [facility] 149, 162.56, cm, 08/29/20 5:30:00 CDT, Height, 97.273, kg, 08/29/20 5:30:00 CDT, Weight pantoprazol 2020-0 No 40 mg = 1 M emoria e 40 mg 4-09 tab, PO, l oral 15:26: Daily, # [place] enteric 00 30 tab, 0 coated Refill(s) tablet sucralfate 2020-0 Yes 1 gm = 1 Mem oria 1 g oral 4-09 tab, PO, l tablet 15:26: Q12H, # 28 Skylar nn 00 tab, 0 Refill(s), Pharmacy: [facility] 149, 162.56, cm, 08/29/20 5:30:00 CDT, [...] Skylar nn 00 tab, 0 Refill(s), Pharmacy: [facility] 149, 162.56, cm, 08/29/20 5:30:00 CDT, Height, 97.273, kg, 08/29/20 5:30:00 CDT, Weight Saline No Notes: Memoria Flush 0.9% 4-09 (Same as: l 15:25: BD [place] 00 Posiflush) Lorazepam No Notes: Memori a 4-09 (Same as: l 15:25: Ativan) Saline No Notes: Memoria Flush 0.9% 4-09 (Same as: l 15:25: BD [place] 00 Posiflush) Lorazepam No Notes: Memori a 4-09 (Same as: l 15:25: Ativan) Saline No Notes: Memoria Flush 0.9% 4-09 (Same as: l 15:25: BD [place] 00 Posiflush) Saline No Notes: Memoria Flush 0.9% 4-09 (Same as: l 15:25: BD [place] 00 Posiflush) Lorazepam No Notes: Memori a 4-09 (Same as: l 15:25: Ativan) [place] 00 Lorazepam No Notes: Memori a 4-09 [...] Drug form: l mg + 15:00: INJ, [place] 00 Dosing Weight 97.3, kg, Start date: [...] 08-29 Drug form: l 14:18: INJ, ONCE, [place] 00 Stop date: 08/29/20 9:18:00 CDT heparin 2020-0 No Route: IV, Caesar lisa (ANES) 08-29 Drug form: l 14:18: INJ, ONCE, [place] 00 Stop date: 08/29/20 9:18:00 CDT heparin [...] Memori a 08-29 Route: l 14:01: IVP, [place] 00 Q5Min, Dosing Weight 97.273, kg, PRN Elevated BP, Start date: 08/29/20 9:01:00 CDT, Duration: 5 doses or times, Stop date: Limited # of times Acetaminoph 2020-0 No 1,000 mg, M emoria en 08-29 Route: PO, l 14:01: Drug form: [place] 00 TAB, ONCE, Dosing Weight 97.273, kg, [...] lisa 08-29 Route: l 14:01: IVP, PRN, [place] 00 Dosing Weight 97.273, kg, PRN Benzodiaze [...] 08-29 Route: PO, l 14:01: Drug form: [place] 00 TAB, ONCE, Dosing Weight 97.273, kg, [...] Memori a 08-29 Route: l 14:01: IVP, [place] 00 Q2MIN, Dosing Weight 97.273, kg, PRN Narcotic Reversal, Start date: 08/29/20 9:01:00 CDT, Duration: 8 doses or times, Stop date: Limited # of times Ondansetron 1-0 No 4 mg, Memor ia 08-29 Route: l 14:01: IVP, ONCE, [place] 00 Dosing Weight 97.273, kg, PRN Nausea [...] 08-29 Route: PO, l 14:01: Drug form: [place] 00 TAB, ONCE, Dosing Weight 97.273, kg, [...] lisa 08-29 Route: l 14:01: IVP, PRN, [place] 00 Dosing Weight 97.273, kg, PRN Benzodiaze pine Reversal, Initial dose, Start date: 08/29/20 9:01:00 CDT, Duration: 30 day, Stop date: 09/28/20 9:00:00 CDT Naloxone 2021-0 No 0.4 mg, Memori a 08-29 Route: l 14:01: IVP, [place] 00 Q2MIN, Dosing Weight 97.273, kg, PRN Narcotic Reversal, Start date: 08/29/20 9:01:00 CDT, Duration: 8 doses or times, Stop date: Limited # of times Ondansetron 1-0 No 4 mg, Memor ia 08-29 Route: l 14:01: IVP, ONCE, [place] 00 Dosing Weight 97.273, kg, PRN Nausea & Vomiting, Start date: 08/29/20 9:01:00 CDT Labetalol 2021-0 No 10 mg, Memori a 08-29 Route: l 14:01: IVP, [place] 00 Q5Min, Dosing Weight 97.273, kg, PRN [...] oria ne 08-29 Route: l 14:01: IVP, [place] 00 Q5Min, Dosing Weight 97.273, kg, PRN Pain Score 7-10, Start date: 08/29/20 9:01:00 CDT, Duration: 4 doses or times, Stop date: Limited # of times Labetalol 1-0 No 10 mg, Memori a 08-29 Route: l 14:01: IVP, [place] 00 Q5Min, Dosing Weight 97.273, kg, PRN Elevated BP, Start date: 08/29/20 9:01:00 CDT, Duration: 5 doses or times, Stop date: Limited # of times Acetaminoph 2021-0 No 1,000 mg, M emoria en 08-29 Route: PO, l 14:01: Drug form: [place] 00 TAB, ONCE, Dosing Weight 97.273, kg, PRN Pain Score 1-3, Start date: 08/29/20 9:01:00 CDT Oxycodone 2021-0 No 5 mg, Memoria Hydrochlori 4-09 Route: PO, l de 5 MG 14:: [...] lisa 4-09 Route: l 14:01: IVP, PRN, [place] 00 Dosing Weight 97.273, kg, PRN Benzodiaze pine Reversal, Initial dose, Start date: 08/29/20 9:01:00 CDT, Duration: 30 day, Stop date: 09/28/20 9:00:00 CDT Naloxone 2021-0 No 0.4 mg, Memori a 4- Route: l 14:01: IVP, [place] 00 Q2MIN, Dosing Weight 97.273, kg, PRN Narcotic Reversal, Start date: 08/29/20 9:01:00 CDT, Duration: 8 doses or times, Stop date: Limited # of times Flumazenil 2021-0 No 0.2 mg, Caesar lisa 4- Route: l 14:01: IVP, PRN, [place] 00 Dosing Weight 97.273, kg, PRN Benzodiaze pine Reversal, Initial dose, Start date: 08/29/20 9:01:00 CDT, Duration: 30 day, Stop date: 09/28/20 9:00:00 CDT Ondansetron 2021-0 No 4 mg, Memor ia 4- Route: l 14:01: IVP, ONCE, [place] 00 Dosing Weight 97.273, kg, PRN Nausea & Vomiting, Start date: 08/29/20 9:01:00 CDT Naloxone 2021-0 No 0.4 mg, Memori a 4-09 Route: l 14:01: IVP, [place] 00 Q2MIN, Dosing Weight 97.273, kg, PRN Narcotic Reversal, Start date: 08/29/20 9:01:00 CDT, Duration: 8 doses or times, Stop date: Limited # of times Ondansetron 2021-0 No 4 mg, Memor ia 4-09 Route: l 14:01: IVP, ONCE, [place] 00 Dosing Weight 97.273, kg, PRN Nausea [...] Memori a 08-29 Route: l 14:01: IVP, [place] 00 Q2MIN, Dosing Weight 97.273, kg, PRN Narcotic Reversal, Start date: 08/29/20 9:01:00 CDT, Duration: 8 doses or times, Stop date: Limited # of times Ondansetron 1-0 No 4 mg, Memor ia 08-29 Route: l 14:01: IVP, ONCE, [place] 00 Dosing Weight 97.273, kg, PRN Nausea [...] 08-29 Route: PO, l 14:01: Drug form: [place] 00 TAB, ONCE, Dosing Weight 97.273, kg, [...] Drug form: l 10 13:15: INJ, Start [place] 00 date: 08/29/20 8:15:00 CDT, Stop date: 08/29/20 9:15:00 CDT norepinephr 2021-0 No Route: IV, Memoria ine (ANES) 08-29 Drug form: l 10 13:15: INJ, Start [place] microgram 00 date: 08/29/20 8:15:00 CDT, Stop date: 08/29/20 9:15:00 CDT norepinephr 2020-0 No Route: IV, Memoria ine (ANES) 08-29 Drug form: l 10 13:15: INJ, Start Marty microgram date: 08/29/20 8:15:00 CDT, Stop date: 08/29/20 9:15:00 CDT norepinephr 2020-0 No Route: IV, Memoria ine (ANES) 08-29 Drug form: l 10 13:15: INJ, Start [place] microgram date: 08/29/20 8:15:00 CDT, Stop date: [...] 4-09 Total l 0.9% IV 12:30: Volume: [place] (ANES) 1000 00 1,000, mL Start date: 08/29/20 7:30:00 CDT, Stop date: 08/29/20 8:30:00 CDT Sodium 1-0 No Route: IV, Memor ia Chloride 4-09 Total l 0.9% IV 12:30: Volume: [place] (ANES) 1000 00 1,000, mL Start date: 08/29/20 7:30:00 CDT, Stop date: 08/29/20 8:30:00 CDT Sodium 2021-0 No Route: IV, Memor ia Chloride 4-09 Total l 0.9% IV 12:30: Volume: [place] (ANES) 1000 00 1,000, mL Start date: 08/29/20 7:30:00 CDT, Stop date: 08/29/20 8:30:00 CDT Sodium 2021-0 No Route: IV, Memor ia Chloride 4-09 Total l 0.9% IV 12:30: Volume: [place] (ANES) 1000 00 1,000, mL Start date: 08/29/20 7:30:00 CDT, Stop date: 08/29/20 8:30:00 CDT Sodium 2021-0 No Route: IV, Memor ia Chloride 4-09 Total l 0.9% IV 12:30: Volume: [place] (ANES) 1000 00 1,000, mL Start date: [...] PO, l Hydrochlori 11:42: Q24H, # 30 [place] de 150 MG 00 tab, 0 Extended [...] PO, l Hydrochlori 11:42: Q24H, # 30 [place] de 150 MG 00 tab, 0 Extended Refill(s) Release Tablet apixaban 5 2020-0 Yes 5 mg, PO, Me moria MG Oral 4- Q12H, tab, l Tablet 11:41: 0 [place] [Eliquis] 00 Refill(s), For Atrial Fibrilatio n apixaban 5 2020-0 Yes 5 mg, PO, Me moria MG Oral 4- Q12H, tab, l Tablet 11:41: 0 [place] [Eliquis] 00 Refill(s), For Atrial Fibrilatio n apixaban 5 2020-0 Yes 5 mg, PO, Me moria MG Oral 4- Q12H, tab, l Tablet 11:41: 0 [place] [Eliquis] 00 Refill(s), For Atrial Fibrilatio n apixaban 5 2020-0 Yes 5 mg, PO, Me moria MG Oral 4- Q12H, tab, l Tablet 11:41: 0 [place] [Eliquis] 00 Refill(s), For Atrial Fibrilatio n [...] tab, PO, l tablet 11:38: Daily, # [place] 00 90 tab, 3 Refill(s) AMIODarone 2020-0 Yes 200 mg = 1 M emoria 200 mg oral 4-09 tab, PO, l tablet 11:38: Daily, # [place] 00 90 tab, 3 Refill(s) AMIODarone 2020-0 Yes 200 mg = 1 M emoria 200 mg oral 4-09 tab, PO, l tablet 11:38: Daily, # [place] 00 90 tab, 3 Refill(s) AMIODarone 2020-0 [...] 08-16 00:00: [facility]osp[facility] 00 l Eliquis 5 2021-0 [...] 90 4-14 ity of mcg/actuati 00:00: [place] on inhaler 00 [facility] albuterol 0 [...] tablet 00 (two) times a day. DESCOVY 2016- Yes 1{tbl} QD Take 1 [...] [facility] 00 (two) l [facility] 400[facility] Q.[facility]D Take 400 [...] [facility] 00 (two) l times a day. [facility] 400mg Q.5D Take 400 Met [facility] 400 mg 3-[address] tablet 00:00: mouth 2 [facility]osp[facility] 00 (two) l times a day. [facility] Yes 400mg Q.5D Take 400 [facility] 400 mg 3-[address] tablet 00:00: mouth 2 [facility] 00 (two) l times a day. [facility] 400[facility] Q.5D Take 400 [facility] 400 mg 3-[address] tablet 00:00: mouth 2 [facility] 00 (two) l times a day. [facility] Yes 400mg Q.5D Take 400 Met [facility] 400 mg 3-[address] tablet 00:00: mouth 2 [facility] 00 (two) l times a day. [facility] 400[facility] Q.5D Take 400 [facility] 400 mg 3-[address] tablet 00:00: mouth 2 [facility] 00 (two) l times a day. [facility] 400[facility] Q.5D Take 400 Met [facility] 400 mg 3-[address] tablet 00:00: mouth 2 [facility] 00 (two) l times a day. [facility] 400[facility] Q.5D Take 400 [facility] 400 mg 3-[address] tablet 00:00: mouth 2 [facility]osp[facility] 00 (two) l times a day. Immunizations Ordered Filled Immunization Date Status Comments [facility] e Immunization Name Name SARS-COV-2 COVID-19 [...] [place] 65[place] PFIZER COVID-19 2020-07-23 Completed [facility] MRNA VACCINATION 00:00:00 [facility] PFIZER COVID-19 2020-07-23 Completed [facility] MRNA VACCINATION 00:00:00 [facility] PFIZER COVID-19 2020-07-23 Completed [facility] MRNA VACCINATION 00:00:00 [facility] PFIZER COVID-19 2020-07-23 Completed [facility] MRNA VACCINATION 00:00:00 [facility] PFIZER COVID-19 2020-07-23 Completed [facility] MRNA VACCINATION 00:00:00 [facility] PFIZER COVID-19 2020-07-23 Completed [facility] MRNA VACCINATION 00:00:00 [facility] PFIZER COVID-19 2020-07-23 Completed [facility] MRNA VACCINATION 00:00:00 [facility] PFIZER COVID-19 2020-07-23 Completed [facility] MRNA VACCINATION 00:00:00 [facility] PFIZER COVID-19 2020-07-23 Completed [facility] MRNA VACCINATION 00:00:00 [facility] PFIZER COVID-19 2020-07-23 Completed [facility] MRNA VACCINATION 00:00:00 [facility] PFIZER COVID-19 2020-07-23 Completed [facility] MRNA VACCINATION 00:00:00 [facility] PFIZER COVID-19 2020-07-23 Completed [facility] MRNA VACCINATION 00:00:00 [facility] PFIZER COVID-19 2020-07-23 Completed [facility] MRNA VACCINATION 00:00:00 [facility] PFIZER COVID-19 2020-07-23 Completed [facility] MRNA VACCINATION 00:00:00 [facility] PFIZER COVID-19 2020-07-23 Completed [facility] MRNA VACCINATION 00:00:00 [facility] PFIZER COVID-19 2020-07-23 Completed [facility] MRNA VACCINATION 00:00:00 [facility] PFIZER COVID-19 2020-07-23 Completed [facility] MRNA VACCINATION 00:00:00 [facility] PFIZER COVID-19 2020-07-23 Completed [facility] MRNA VACCINATION 00:00:00 [facility] PFIZER COVID-19 2020-07-23 Completed [facility] MRNA VACCINATION 00:00:00 [facility] PFIZER COVID-19 2020-07-23 Completed [facility] MRNA VACCINATION 00:00:00 [facility] PFIZER COVID-19 2020-07-23 Completed [facility] MRNA VACCINATION 00:00:00 [facility] PFIZER COVID-19 2020-07-23 Completed [facility] MRNA VACCINATION 00:00:00 [facility] PFIZER COVID-19 2020-07-23 Completed [facility] MRNA VACCINATION 00:00:00 [facility] PFIZER COVID-19 2020-07-23 Completed [facility] MRNA VACCINATION 00:00:00 [facility] PFIZER COVID-19 2020-07-23 Completed [facility] MRNA VACCINATION 00:00:00 [facility] PFIZER COVID-19 2020-07-23 Completed [facility] MRNA VACCINATION 00:00:00 [facility] PFIZER COVID-19 2020-07-23 Completed [facility] MRNA VACCINATION 00:00:00 [facility] PFIZER COVID-19 2020-07-23 Completed [facility] MRNA VACCINATION 00:00:00 [facility] PFIZER COVID-19 2020-07-23 Completed [facility] MRNA VACCINATION 00:00:00 [facility] PFIZER COVID-19 2020-07-23 Completed [facility] MRNA VACCINATION 00:00:00 [facility] PFIZER COVID-19 2020-07-23 Completed [facility] MRNA VACCINATION 00:00:00 [facility] PFIZER COVID-19 2020-07-23 Completed [facility] MRNA VACCINATION 00:00:00 [facility] PFIZER COVID-19 2020-07-23 Completed [facility] MRNA VACCINATION 00:00:00 [facility] PFIZER COVID-19 2020-07-23 Completed [facility] MRNA VACCINATION 00:00:00 [facility] PFIZER COVID-19 2020-07-23 Completed [facility] MRNA VACCINATION 00:00:00 [facility] PFIZER COVID-19 2020-07-23 Completed [facility] MRNA VACCINATION 00:00:00 [facility] SARS-COV-2 COVID-19 2020-07-23 Completed [facility] of PFIZER VACCINE 00:00:00 [facility] SARS-COV-2 COVID-19 2020-07-23 Completed Unive rs[facility] of PFIZER VACCINE 00:00:00 [facility] SARS-COV-2 COVID-19 2020-07-23 Completed Un[facility] of PFIZER VACCINE 00:00:00 [facility] SARS-COV-2 COVID-19 2020-07-23 Completed [facility] of PFIZER VACCINE 00:00:00 [facility] SARS-COV-2 COVID-19 2020-07-23 Completed [facility]ive rs[facility] of PFIZER VACCINE 00:00:00 [facility] SARS-COV-2 COVID-19 2020-07-23 Completed [facility] of PFIZER VACCINE 00:00:00 [facility] SARS-COV-2 COVID-19 2020-07-23 Completed [facility] of PFIZER VACCINE 00:00:00 [facility] SARS-COV-2 COVID-19 2020-07-23 Completed [facility] of PFIZER VACCINE 00:00:00 [facility] SARS-COV-2 COVID-19 2020-07-23 Completed [facility]ive rs[facility] of PFIZER VACCINE 00:00:00 [facility] SARS-COV-2 COVID-19 2020-07-23 Completed [facility]ive rs[facility] of PFIZER VACCINE 00:00:00 [facility] SARS-COV-2 COVID-19 2020-07-23 Completed [facility] of PFIZER VACCINE 00:00:00 [facility] SARS-COV-2 COVID-19 2020-07-23 Completed [facility] of PFIZER VACCINE 00:00:00 [facility] SARS-COV-2 COVID-19 2020-07-23 Completed [facility]ive [facility] of PFIZER VACCINE 00:00:00 [facility] SARS-COV-2 COVID-19 2020-07-23 Completed [facility] of PFIZER VACCINE 00:00:00 [facility] PFIZER COVID-19 2020-07-23 Completed [facility] MRNA VACCINATION 00:00:00 [facility] PFIZER COVID-19 2020-07-02 Completed [facility] MRNA VACCINATION 00:00:00 [facility] PFIZER COVID-19 2020-07-02 Completed [facility] MRNA VACCINATION 00:00:00 [facility] PFIZER COVID-19 2020-07-02 Completed [facility] MRNA VACCINATION 00:00:00 [facility] PFIZER COVID-19 2020-07-02 Completed [facility] MRNA VACCINATION 00:00:00 [facility] PFIZER COVID-19 2020-07-02 Completed [facility] MRNA VACCINATION 00:00:00 [facility] PFIZER COVID-19 2020-07-02 Completed [facility] MRNA VACCINATION 00:00:00 [facility] [facility] COVID-19 2020-07-02 Completed [facility] MRNA VACCINATION 00:00:00 [facility] PFIZER COVID-19 2020-07-02 Completed [facility] MRNA VACCINATION 00:00:00 [facility] PFIZER COVID-19 2020-07-02 Completed [facility] MRNA VACCINATION 00:00:00 [facility] PFIZER COVID-19 2020-07-02 Completed [facility] MRNA VACCINATION 00:00:00 [facility] PFIZER COVID-19 2020-07-02 Completed [facility] MRNA VACCINATION 00:00:00 [facility] PFIZER COVID-19 2020-07-02 Completed [facility] MRNA VACCINATION 00:00:00 [facility] PFIZER COVID-19 2020-07-02 Completed [facility] MRNA VACCINATION 00:00:00 [facility] PFIZER COVID-19 2020-07-02 Completed [facility] MRNA VACCINATION 00:00:00 [facility] PFIZER COVID-19 2020-07-02 Completed [facility] MRNA VACCINATION 00:00:00 [facility] PFIZER COVID-19 2020-07-02 Completed [facility] MRNA VACCINATION 00:00:00 [facility] PFIZER COVID-19 2020-07-02 Completed [facility] MRNA VACCINATION 00:00:00 [facility] PFIZER COVID-19 2020-07-02 Completed [facility] MRNA VACCINATION 00:00:00 [facility] PFIZER COVID-19 2020-07-02 Completed [facility] MRNA VACCINATION 00:00:00 [facility] PFIZER COVID-19 2020-07-02 Completed [facility] MRNA VACCINATION 00:00:00 [facility] PFIZER COVID-19 2020-07-02 Completed [facility] MRNA VACCINATION 00:00:00 [facility] PFIZER COVID-19 2020-07-02 Completed [facility] MRNA VACCINATION 00:00:00 [facility] PFIZER COVID-19 2020-07-02 Completed [facility] MRNA VACCINATION 00:00:00 [facility] PFIZER COVID-19 2020-07-02 Completed [facility] MRNA VACCINATION 00:00:00 [facility] PFIZER COVID-19 2020-07-02 Completed [facility] MRNA VACCINATION 00:00:00 [facility] PFIZER COVID-19 2020-07-02 Completed [facility] MRNA VACCINATION 00:00:00 [facility] PFIZER COVID-19 2020-07-02 Completed [facility] MRNA VACCINATION 00:00:00 [facility] PFIZER COVID-19 2020-07-02 Completed [facility] MRNA VACCINATION 00:00:00 [facility] PFIZER COVID-19 2020-07-02 Completed [facility] VACCINATION 00:00:00 [facility] PFIZER COVID-19 2020-07-02 Completed [facility] MRNA VACCINATION 00:00:00 [facility] PFIZER COVID-19 2020-07-02 Completed [facility] MRNA VACCINATION 00:00:00 [facility] PFIZER COVID-19 2020-07-02 Completed [facility] MRNA VACCINATION 00:00:00 [facility] PFIZER COVID-19 2020-07-02 Completed [facility] MRNA VACCINATION 00:00:00 [facility] PFIZER COVID-19 2020-07-02 Completed [facility] MRNA VACCINATION 00:00:00 [facility] PFIZER COVID-19 2020-07-02 Completed [facility] MRNA VACCINATION 00:00:00 [facility] PFIZER COVID-19 2020-07-02 Completed [facility] MRNA VACCINATION 00:00:00 [facility] SARS-COV-2 COVID-19 2020-07-02 Completed Unive rsity of PFIZER VACCINE 00:00:00 [facility] SARS-COV-2 COVID-19 2020-07-02 Completed Unive rsity of PFIZER VACCINE 00:00:00 [facility] SARS-COV-2 COVID-19 2020-07-02 Completed Unive rsity of PFIZER VACCINE 00:00:00 [facility] SARS-COV-2 COVID-19 2020-07-02 Completed Unive rsity of PFIZER VACCINE 00:00:00 [facility] SARS-COV-2 COVID-19 2020-07-02 Completed Unive rsity of PFIZER VACCINE 00:00:00 [facility] SARS-COV-2 COVID-19 2020-07-02 Completed Unive rsity of PFIZER VACCINE 00:00:00 [facility] SARS-COV-2 COVID-19 2020-07-02 Completed Unive rsity of PFIZER VACCINE 00:00:00 [facility] SARS-COV-2 COVID-19 2020-07-02 Completed Unive rsity of PFIZER VACCINE 00:00:00 [facility] SARS-COV-2 COVID-19 2020-07-02 Completed Unive rsity of PFIZER VACCINE 00:00:00 [facility] SARS-COV-2 COVID-19 2020-07-02 Completed Unive rsity of PFIZER VACCINE 00:00:00 [facility] SARS-COV-2 COVID-19 2020-07-02 Completed Unive rsity of PFIZER VACCINE 00:00:00 [facility] SARS-COV-2 COVID-19 2020-07-02 Completed Unive rsity of PFIZER VACCINE 00:00:00 [facility] SARS-COV-2 COVID-19 2020-07-02 Completed Unive rsity of PFIZER VACCINE 00:00:00 [facility] SARS-COV-2 COVID-19 2020-07-02 Completed Unive rsity of PFIZER VACCINE 00:00:00 [facility] PFIZER COVID-19 2020-07-02 Completed [facility] MRNA VACCINATION 00:00:00 [facility] Influenza Virus 2017-03-08 Completed Universit y of Vaccine 00:00:00 [facility] Influenza Virus 2017-03-08 Completed [facility]it y of Vaccine 00:00:00 [facility] Influenza Virus 2017-03-08 Completed [facility]it y of Vaccine 00:00:00 [facility] Influenza Virus 2017-03-08 Completed [facility]it y of Vaccine 00:00:00 [facility] Influenza Virus 2017-03-08 Completed [facility]it y of Vaccine 00:00:00 [facility] Influenza Virus 2017-03-08 Completed [facility]it y of Vaccine 00:00:00 [facility] Influenza Virus 2017-03-08 Completed [facility]it y of Vaccine 00:00:00 [facility] Influenza Virus 2017-03-08 Completed [facility]it y of Vaccine 00:00:00 [facility] Influenza Virus 2017-03-08 Completed [facility]it y of Vaccine 00:00:00 [facility] Influenza Virus 2017-03-08 Completed [facility]it y of Vaccine 00:00:00 [facility] Influenza Virus 2017-03-08 Completed [facility]it y of Vaccine 00:00:00 [facility] Influenza Virus 2017-03-08 Completed [facility]it y of Vaccine 00:00:00 [facility] Influenza Virus 2017-03-08 Completed [facility]it y of Vaccine 00:00:00 [facility] Influenza Virus 2017-03-08 Completed [facility]it y of Vaccine 00:00:00 [facility] Influenza Virus 2017-03-08 Completed [facility]it y of Vaccine 00:00:00 [facility] Influenza Virus 2017-03-08 Completed [facility]it y of Vaccine 00:00:00 [facility] Influenza Virus 2017-03-08 Completed [facility]it y of Vaccine 00:00:00 [facility] Influenza Virus 2017-03-08 Completed [facility]it y of Vaccine 00:00:00 [facility] Influenza Virus 2014-01-30 Completed Universit y of Vaccine (3+ yrs) 00:00:00 [facility] Branch Pneumococcal 13 2014-01-30 Completed Universit y of Conjugate, PCV13 00:00:00 [facility] dical (Prevnar 13) Branch Influenza Virus 2014-01-30 Completed Universit y of Vaccine (3+ yrs) 00:00:[address] [facility] Pneumococcal 13 2014-01-30 Completed Universit y of Conjugate, PCV13 00:00:00 [facility] dical (Prevnar 13) Branch Influenza Virus 2014-01-30 Completed Universit y of Vaccine (3+ yrs) 00:00:[address] [facility] Pneumococcal 13 2014-01-30 Completed Universit y of Conjugate, PCV13 00:00:00 [facility] dical (Prevnar 13) Branch Influenza Virus 2014-01-30 Completed Universit y of Vaccine (3+ yrs) 00:00:[address] [facility] Pneumococcal 13 2014-01-30 Completed Universit y of Conjugate, PCV13 00:00:00 [facility] dical (Prevnar 13) Branch Influenza Virus 2014-01-30 Completed Universit y of Vaccine (3+ yrs) 00:00:00 [facility] Pneumococcal 13 2014-01-30 Completed Universit y of Conjugate, PCV13 00:00:00 [facility] dical (Prevnar 13) Branch Influenza Virus 2014-01-30 Completed Universit y of Vaccine (3+ yrs) 00:00:[address] [facility] Pneumococcal 13 2014-01-30 Completed Universit y of Conjugate, PCV13 00:00:00 [facility] dical (Prevnar 13) Branch Influenza Virus 2014-01-30 Completed Universit y of Vaccine (3+ yrs) 00:00:[address] [facility] Pneumococcal 13 2014-01-30 Completed Universit y of Conjugate, PCV13 00:00:00 [facility] dical (Prevnar 13) Branch Influenza Virus 2014-01-30 Completed Universit y of Vaccine (3+ yrs) 00:00:[address] [facility] Pneumococcal 13 2014-01-30 Completed Universit y of Conjugate, PCV13 00:00:00 [facility] dical (Prevnar 13) Branch Influenza Virus 2014-01-30 Completed [facility]it y of Vaccine (3+ yrs) 00:00:00 [facility] Pneumococcal 13 2014-01-30 Completed [facility]it y of Conjugate, PCV13 00:00:00 [place] [facility] (Prevnar 13) Branch Influenza Virus 2014-01-30 Completed [facility]it y of Vaccine (3+ yrs) 00:00:00 [facility] Pneumococcal 13 2014-01-30 Completed [facility]it y of Conjugate, PCV13 00:00:00 [place] [facility] (Prevnar 13) Branch Influenza Virus 2014-01-30 Completed [facility]it y of Vaccine (3+ yrs) 00:00:00 [place] [facility] Pneumococcal 13 2014-01-30 Completed [facility]it y of Conjugate, PCV13 00:00:00 [place] [facility] (Prevnar 13) Branch Influenza Virus 2014-01-30 Completed [facility]it y of Vaccine (3+ yrs) 00:00:00 [facility] d[facility] Branch Pneumococcal 13 2014-01-30 Completed Universit y of Conjugate, PCV13 00:00:00 [facility] dical (Prevnar 13) Branch Influenza Virus 2014-01-30 Completed [facility]it y of Vaccine (3+ yrs) 00:00:00 [place] [facility] Pneumococcal 13 2014-01-30 Completed [facility]it y of Conjugate, PCV13 00:00:00 [facility] dical (Prevnar 13) Branch Influenza Virus 2014-01-30 Completed Universit y of Vaccine (3+ yrs) 00:00:00 [facility] dical Branch Pneumococcal 13 2014-01-30 Completed [facility]it y of Conjugate, PCV13 00:00:00 [place] [facility] (Prevnar 13) Branch Influenza Virus 2014-01-30 Completed [facility]it y of Vaccine (3+ yrs) 00:00:00 [facility] dical Branch Pneumococcal 13 2014-01-30 Completed [facility]it y of Conjugate, PCV13 00:00:00 [place] [facility] (Prevnar 13) Branch Influenza Virus 2014-01-30 Completed [facility]it y of Vaccine (3+ yrs) 00:00:00 [facility] Branch Pneumococcal 13 2014-01-30 Completed [facility]it y of Conjugate, PCV13 00:00:00 [facility] dical (Prevnar 13) Branch Influenza Virus 2014-01-30 Completed [facility]it y of Vaccine (3+ yrs) 00:00:00 [facility]ical Branch Pneumococcal 13 2014-01-30 Completed Universit y of Conjugate, PCV13 00:00:00 [facility] dical (Prevnar 13) Branch Influenza Virus 2014-01-30 Completed Universit y of Vaccine (3+ yrs) 00:00:00 [facility] dical Branch Pneumococcal 13 2014-01-30 Completed Universit y of Conjugate, PCV13 00:00:00 [facility] dical (Prevnar 13) Branch Pneumococcal 2012-02-16 Completed University o f Polysaccharide, 00:00:00 [place] [facility] PPSV23 (PNEUMOVAX) Branch Influenza Virus 2012-02-16 Completed Universit y of Vaccine 00:00:00 [facility] PPD (TB) 2012-02-16 Completed [facility] of 00:00:00 [facility] Pneumococcal 2012-02-16 Completed University o f Polysaccharide, 00:00:00 [place] [facility] PPSV23 (PNEUMOVAX) Branch Influenza Virus 2012-02-16 Completed [facility]it y of Vaccine 00:00:00 [facility] PPD (TB) 2012-02-16 Completed [facility] of 00:00:00 [facility] Pneumococcal 2012-02-16 Completed University o f Polysaccharide, 00:00:00 [place] [facility] PPSV23 (PNEUMOVAX) Branch Influenza Virus 2012-02-16 Completed [facility]it y of Vaccine 00:00:00 [facility] PPD (TB) 2012-02-16 Completed [facility] of 00:00:00 [facility] Pneumococcal 2012-02-16 Completed University o f Polysaccharide, 00:00:00 [place] [facility] PPSV23 (PNEUMOVAX) Branch Influenza Virus 2012-02-16 Completed [facility]it y of Vaccine 00:00:00 [facility] PPD (TB) 2012-02-16 Completed [facility] of 00:00:00 [facility] Pneumococcal 2012-02-16 Completed University o f Polysaccharide, 00:00:00 [place] [facility] PPSV23 (PNEUMOVAX) Branch Influenza Virus 2012-02-16 Completed [facility]it y of Vaccine 00:00:00 [facility] PPD (TB) 2012-02-16 Completed [facility] of 00:00:00 [facility] Pneumococcal 2012-02-16 Completed University o f Polysaccharide, 00:00:00 [place] [facility] PPSV23 (PNEUMOVAX) Branch Influenza Virus 2012-02-16 Completed [facility]it y of Vaccine 00:00:00 [facility] PPD (TB) 2012-02-16 Completed [facility] of 00:00:00 [facility] Pneumococcal 2012-02-16 Completed [facility] o f Polysaccharide, 00:00:00 [place] [facility] PPSV23 (PNEUMOVAX) Branch Influenza Virus 2012-02-16 Completed [facility]it y of Vaccine 00:00:00 [facility] PPD (TB) 2012-02-16 Completed [facility] of 00:00:00 [facility] Pneumococcal 2012-02-16 Completed [facility] o f Polysaccharide, 00:00:00 [place] [facility] PPSV23 (PNEUMOVAX) Branch Influenza Virus 2012-02-16 Completed [facility]it y of Vaccine 00:00:00 [facility] PPD (TB) 2012-02-16 Completed [facility] of 00:00:00 [facility] Pneumococcal 2012-02-16 Completed University o f Polysaccharide, 00:00:00 [place] [facility] PPSV23 (PNEUMOVAX) Branch Influenza Virus 2012-02-16 Completed [facility]it y of Vaccine 00:00:00 [facility] PPD (TB) 2012-02-16 Completed [facility] of 00:00:00 [facility] Pneumococcal 2012-02-16 Completed University o f Polysaccharide, 00:00:00 [place] [facility] PPSV23 (PNEUMOVAX) Branch Influenza Virus 2012-02-16 Completed [facility]it y of Vaccine 00:00:00 [facility] PPD (TB) 2012-02-16 Completed [facility] of 00:00:00 [facility] Pneumococcal 2012-02-16 Completed [facility] o f Polysaccharide, 00:00:00 [place] [facility] PPSV23 (PNEUMOVAX) Branch Influenza Virus 2012-02-16 Completed [facility]it y of Vaccine 00:00:00 [facility] PPD (TB) 2012-02-16 Completed [facility] of 00:00:00 [facility] Pneumococcal 2012-02-16 Completed University o f Polysaccharide, 00:00:00 [place] [facility] PPSV23 (PNEUMOVAX) Branch Influenza Virus 2012-02-16 Completed [facility]it y of Vaccine 00:00:00 [facility] PPD (TB) 2012-02-16 Completed [facility] of 00:00:00 [facility] Pneumococcal 2012-02-16 Completed University o f Polysaccharide, 00:00:00 [place] [facility] PPSV23 (PNEUMOVAX) Branch Influenza Virus 2012-02-16 Completed [facility]it y of Vaccine 00:00:00 [facility] PPD (TB) 2012-02-16 Completed [facility] of 00:00:00 [facility] Pneumococcal 2012-02-16 Completed University o f Polysaccharide, 00:00:00 [place] [facility] PPSV23 (PNEUMOVAX) Branch Influenza Virus 2012-02-16 Completed [facility]it y of Vaccine 00:00:00 [facility] PPD (TB) 2012-02-16 Completed [facility] of 00:00:00 [facility] Pneumococcal 2012-02-16 Completed [facility] o f Polysaccharide, 00:00:00 [place] [facility] PPSV23 (PNEUMOVAX) Branch Influenza Virus 2012-02-16 Completed [facility]it y of Vaccine 00:00:00 [facility] PPD (TB) 2012-02-16 Completed [facility] of 00:00:00 [facility] Pneumococcal 2012-02-16 Completed University o f Polysaccharide, 00:00:00 [place] [facility] PPSV23 (PNEUMOVAX) Branch Influenza Virus 2012-02-16 Completed [facility]it y of Vaccine 00:00:00 [facility] PPD (TB) 2012-02-16 Completed [facility] of 00:00:00 [facility] Pneumococcal 2012-02-16 Completed University o f Polysaccharide, 00:00:00 [place] [facility] PPSV23 (PNEUMOVAX) Branch Influenza Virus 2012-02-16 Completed [facility]it y of Vaccine 00:00:00 [facility] PPD (TB) 2012-02-16 Completed [facility] of 00:00:00 [facility] Pneumococcal 2012-02-16 Completed University o f [...] 2011-03-17 Completed Unive rsity of Dosage 00:00:00 [facility] Influenza Virus 2011-02-10 Completed Universit y of Vaccine 00:00:00 [facility] Hep B, Adol or Pedi 2011-02-10 Completed Unive rsity of Dosage 00:00:00 [facility] Influenza Virus 2011-02-10 Completed [facility]it y of Vaccine 00:00:00 [facility] Hep B, Adol or Pedi 2011-02-10 Completed Unive rsity of Dosage 00:00:00 [facility] Influenza Virus 2011-02-10 Completed Universit y of Vaccine 00:00:00 [facility] Hep B, Adol or Pedi 2011-02-10 Completed Unive rsity of Dosage 00:00:00 [facility] Influenza Virus 2011-02-10 Completed [facility]it y of Vaccine 00:00:00 [facility] Hep B, Adol or Pedi 2011-02-10 Completed Unive rsity of Dosage 00:00:00 [facility] Influenza Virus 2011-02-10 Completed [facility]it y of Vaccine 00:00:00 [facility] Hep B, Adol or Pedi 2011-02-10 [...] 2011-02-10 Completed [facility]it y of Vaccine 00:00:00 [facility] Hep B, Adol or Pedi 2011-02-10 Completed Unive rsity of Dosage 00:00:00 [facility] Influenza Virus 2011-02-10 Completed [facility]it y of Vaccine 00:00:00 [facility] Hep B, Adol or Pedi 2011-02-10 Completed Unive rsity of Dosage 00:00:00 [facility] Influenza Virus 2011-02-10 Completed [facility]it y of Vaccine 00:00:00 [facility] Hep B, Adol or Pedi 2011-02-10 [...] of VACCINE 00:00:00 [facility] PPD (TB) 2010-11-18 Completed University of 00:00:00 [facility] TDAP (ADACEL) 2010-11-18 Completed University of VACCINE 00:00:00 [facility] PPD (TB) 2010-11-18 Completed [facility] of 00:00:00 [facility] TDAP (ADACEL) 2010-11-18 Completed University of VACCINE 00:00:00 [facility] PPD (TB) 2010-11-18 Completed [facility] of 00:00:00 [facility] TDAP (ADACEL) 2010-11-18 Completed University of VACCINE 00:00:00 [facility] PPD (TB) 2010-11-18 Completed [facility] of 00:00:00 [facility] TDAP (ADACEL) 2010-11-18 Completed University of VACCINE 00:00:00 [facility] PPD (TB) 2010-11-18 Completed University of 00:00:00 [facility] TDAP (ADACEL) 2010-11-18 Completed University of VACCINE 00:00:00 [facility] PPD (TB) 2010-11-18 Completed University of 00:00:00 [facility] TDAP (ADACEL) 2010-11-18 Completed University of VACCINE 00:00:00 [facility] PPD (TB) 2010-11-18 Completed University of 00:00:00 [facility] TDAP (ADACEL) 2010-11-18 Completed University of VACCINE 00:00:00 [facility] PPD (TB) 2010-11-18 Completed University of 00:00:00 [facility] TDAP (ADACEL) 2010-11-18 Completed University of VACCINE 00:00:00 [facility] PPD (TB) 2010-11-18 Completed [facility] of 00:00:00 [facility] TDAP (ADACEL) 2010-11-18 Completed University of VACCINE 00:00:00 [facility] PPD (TB) 2010-11-18 Completed [facility] of 00:00:00 [facility] TDAP (ADACEL) 2010-11-18 Completed University of VACCINE 00:00:00 [facility] PPD (TB) 2010-11-18 Completed [facility] of 00:00:00 [facility] TDAP (ADACEL) 2010-11-18 Completed University of VACCINE 00:00:00 [facility] PPD (TB) 2010-11-18 Completed [facility] of 00:00:00 [facility] TDAP (ADACEL) 2010-11-18 Completed University of VACCINE 00:00:00 [facility] PPD (TB) 2010-11-18 Completed University of 00:00:00 [facility] TDAP (ADACEL) 2010-11-18 Completed University of VACCINE 00:00:00 [facility] PPD (TB) 2010-11-18 Completed [facility] of 00:00:00 [facility] TDAP (ADACEL) 2010-11-18 Completed University of VACCINE 00:00:00 [facility] PPD (TB) 2010-11-18 Completed University of 00:00:00 [facility] TDAP (ADACEL) 2010-11-18 Completed University of VACCINE 00:00:00 [facility] PPD (TB) 2010-11-18 Completed [facility] of 00:00:00 [facility] TDAP (ADACEL) 2010-11-18 Completed University of VACCINE 00:00:00 [facility] PPD (TB) [...] HEPATITIS A 2004-03-02 Completed University of 00:00:00 [facility] HEPATITIS A 2004-03-02 Completed [facility] of 00:00:00 [facility] HEPATITIS A 2004-03-02 Completed University of 00:00:00 [facility] HEPATITIS A 2004-03-02 Completed University of 00:00:00 [facility] HEPATITIS A 2003-08-01 Completed University of 00:00:00 [facility] HEPATITIS A 2003-08-01 Completed University of 00:00:00 [facility] HEPATITIS A 2003-08-01 Completed University of 00:00:00 [facility] HEPATITIS A 2003-08-01 Completed University of 00:00:00 [facility] HEPATITIS A 2003-08-01 Completed University of 00:00:00 [facility] HEPATITIS A 2003-08-01 Completed University of 00:00:00 [facility] HEPATITIS A 2003-08-01 Completed University of 00:00:00 [facility] HEPATITIS A 2003-08-01 Completed University of [...] PPD (TB) 2001-10-04 Completed [facility] of 00:00:00 [facility] Pneumococcal 2001-10-04 Completed University o f Polysaccharide, 00:00:00 [place] [facility] PPSV23 (PNEUMOVAX) Branch PPD (TB) 2001-10-04 Completed [facility] of 00:00:00 [facility] Vital Signs Vital Name Observation Time Observation Value Comments Source Systolic blood 2022-05-10 22:00:00 159 mm[Hg] Univer sity of pressure [facility] Diastolic blood 2022-05-10 22:00:00 87 mm[Hg] Unive rsity of pressure [facility] Heart rate 2022-05-10 22:00:00 56 /min [facility]i ty of [facility] Body temperature 2022-05-10 22:00:00 36.61 Amina Univ ersity of [facility] Respiratory rate 2022-05-10 22:00:00 17 /min Univ ersity of [facility] Oxygen saturation in 2022-05-10 22:00:00 98 /min University of Arterial blood by [facility] Pulse oximetry Branch Body weight 2022-05-10 16:29:00 78.926 kg [facility]i ty of [facility] BMI 2022-05-10 16:29:00 29.87 kg/m2 Universi ty of [facility]ly [facility] Systolic blood 2022-05-08 22:30:00 168 mm[Hg] Univer sity of pressure [facility] Diastolic blood 2022-05-08 22:30:00 85 mm[Hg] Unive rsity of pressure [facility] Heart rate 2022-05-08 22:30:00 68 /min [facility] [place] [facility] Oxygen saturation in 2022-05-08 22:30:00 100 /min University of Arterial blood by [facility] Pulse oximetry Branch Body temperature 2022-05-08 22:22:00 35.89 Amina [facility] [place] [facility] Respiratory rate 2022-05-08 22:22:00 14 /min [facility] [place] [facility] Body weight 2022-05-08 22:22:00 78.926 kg [facility] [place] [facility] BMI 2022-05-08 22:22:00 29.87 kg/m2 [facility] Systolic blood 2022-05-07 00:00:00 149 mm[Hg] Univer sity of pressure [facility] Diastolic blood 2022-05-07 00:00:00 132 mm[Hg] Unive rsity of pressure [facility] Heart rate 2022-05-07 00:00:00 59 /min [facility] [place] [facility] Respiratory rate 2022-05-07 00:00:00 14 /min [facility] [place] [facility] Oxygen saturation in 2022-05-07 00:00:00 99 /min [facility] Arterial blood by [place] [employer] [facility] Pulse oximetry Branch Body temperature 2022-05-06 [...] [facility] [place] [facility] Oxygen saturation in 2022-04-22 19:50:00 96 /min [facility]ial blood by [place] [facility] Pulse oximetry Branch Systolic blood 2022-03-05 [...] ty [facility] [place] [facility] BMI 2022-03-05 15:18:00 28.27 kg/m2 Universi ty of [facility] Systolic blood 2022-02-16 21:41:00 169 mm[Hg] Univer [facility]ity of pressure [facility] Diastolic blood 2022-02-16 21:41:00 86 mm[Hg] Unive rsity of pressure [facility] Heart rate 2022-02-16 21:41:00 51 /min [facility] [place] [facility] Body temperature 2022-02-16 21:41:00 36.56 Amina [facility] Respiratory rate 2022-02-16 21:41:00 17 /min Univ ersity of [facility] Oxygen saturation in 2022-02-16 21:41:00 98 /min [facility] of Arterial blood by [facility] Pulse oximetry Branch Body height 2022-02-11 16:02:00 162.6 cm [facility] Body weight 2022-02-11 16:02:00 79.379 kg [facility] BMI 2022-02-11 16:02:00 30.04 kg/m2 [facility] Systolic blood 2021-11-20 13:47:00 165 mm[Hg] Univer sity of pressure [facility] Diastolic blood 2021-11-20 13:47:00 83 mm[Hg] Unive rsity of pressure [facility] Heart rate 2021-11-20 13:47:00 58 /min [facility] [place] [facility] Body temperature 2021-11-20 13:42:00 36.39 Amina [facility] Respiratory rate 2021-11-20 13:42:00 16 /min Univ ersity of [facility] Body height 2021-11-20 13:42:00 162.6 cm [facility] [place] [facility] Body weight 2021-11-20 13:42:00 84.369 kg [facility] [place] [facility] BMI 2021-11-20 13:42:00 31.93 kg/m2 Universi ty of [facility] Systolic blood 2021-07-14 15:18:00 142 mm[Hg] [...] 15:23:00 167 mm[Hg] Univer sity of pressure [facility] Diastolic blood 2022-03-05 15:23:00 105 mm[Hg] Unive rsity of [facility] Heart rate 2022-03-05 15:23:00 49 /min Universi ty of [facility] Body temperature 2022-03-05 15:18:00 36.67 Amina [facility] Respiratory rate 2022-03-05 15:18:00 18 /min [facility] Body height 2022-03-05 15:18:00 162.6 cm [facility] [place] [facility] Body weight 2022-03-05 15:18:00 74.707 kg Universi ty of [facility] BMI 2022-03-05 15:18:00 28.27 kg/m2 Universi ty [facility] Oxygen saturation in 2022-02-16 21:41:00 98 /min [facility] Arterial blood by [facility] Pulse oximetry Branch Systolic blood 2020-12-08 15:48:00 125 mm[Hg] Method ist [facility] pressure Diastolic blood 2020-12-08 15:48:00 76 mm[Hg] Metho [facility] pressure Heart rate 2020-12-08 15:48:00 64 /min [facility] Body temperature 2020-12-08 15:48:00 36.61 Amina [facility] Respiratory rate 2020-12-08 15:48:00 17 /min [facility] Body height 2020-12-08 15:48:00 162.6 cm [facility] Body weight 2020-12-08 15:48:00 98.884 kg [facility] BMI 2020-12-08 15:48:00 37.42 kg/m2 [facility] Oxygen saturation in 2020-12-08 15:48:00 97 /min [facility] Arterial blood by Pulse oximetry Respitory Rate 2020-08-30 13:00:00 Memori al [facility] Systolic (mm Hg) 2020-08-30 13:00:00 Caesar rial [place] Diastolic (mm Hg) 2020-08-30 13:00:00 Mem [place] Systolic (mm Hg) 2020-08-30 11:00:00 Caesar [place] Diastolic (mm Hg) 2020-08-30 11:00:00 Mem [facility] [place] Temperature Oral (F) 2020-08-30 11:00:00 98.4 F [facility] [place] Respitory Rate 2020-08-30 11:00:00 Memori al [place] Respitory Rate 2020-08-30 10:00:00 [facility] [place] Systolic (mm Hg) 2020-08-30 10:00:00 Caesar [place] Diastolic (mm Hg) 2020-08-30 10:00:00 Mem orial [facility] Temperature Oral (F) 2020-08-30 00:00:00 96.9 F [facility] Temperature Oral (F) 2020-08-29 11:26:00 97.6 F [facility] [place] Height 2020-08-29 10:30:00 162.56 cm [facility] [place] Weight 2020-08-29 10:30:00 [facility] [place] BMI Calculated 2020-08-29 10:30:00 Mem[facility] Procedures Procedure Date / Time Performing Clinician Source Performed URINALYSIS 2022-05-10 19:36:00 Home [facility] TROPONIN I 2022-05-10 18:34:00 Home [facility] COMP. METABOLIC PANEL 2022-05-10 18:34:00 Home [facility] ([id number]) Medical Branch CBC WITH DIFF 2022-05-10 18:34:00 Home [facility] XR CHEST 2 VW 2022-05-10 17:24:58 Home [facility] CONSENT/REFUSAL FOR 2022-05-10 16:26:23 Doctor Unasseunice, [facility] DIAGNOSIS AND TREATMENT [place] [facility] CONSENT/REFUSAL FOR 2022-05-10 16:26:09 Doctor Unasimone, [facility] DIAGNOSIS AND TREATMENT [place] [facility] URINALYSIS 2022-05-08 22:43:00 Theresa Hickman [facility] XR CHEST 2 VW 2022-05-06 22:56:53 Anette Olea [facility] COMP. METABOLIC PANEL 2022-05-06 22:14:00 Anette Olea [facility] ([id number]) Medical Branch CBC WITH DIFF 2022-05-06 22:14:00 Anette Olea [facility] COVID-19 (ID NOW RAPID 2022-05-06 22:14:00 Anette Olea [facility] TESTING) Medical Branch BASIC METABOLIC PANEL (NA, 2022-04-22 21:23:00 Paulette Gray [facility] K, CL, CO2, GLUCOSE, BUN, Medica l Branch CREATININE, CA) CBC WITH DIFF 2022-04-22 21:23:00 Paulette Gray [facility] CONSENT/REFUSAL FOR 2022-04-22 19:45:46 Doctor Unasimone [facility] DIAGNOSIS AND TREATMENT [place] [facility] SARS-COV-2 COVID-19 2022-03-05 16:09:27 [facility] DIMITRIS-SUCROSE VACCINE 12 [facility] Branch YRS+, BIVALENT 0.3ML, IM, (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) FLU 2022-03-05 16:09:27 [facility] VACC(),65+YR,0.5 Medica l Branch ML,IM,ADJUVANTED,QUAD(FLUA D) FLU 2022-03-05 16:09:27 [facility] [place] VACC(),65+YR,0.5 Medica l Branch ML,IM,ADJUVANTED,QUAD(FLUA D) SARS-COV-2 COVID-19 2022-03-05 16:09:27 [facility] DIMITRIS-SUCROSE VACCINE 12 Medical Branch YRS+, BIVALENT 0.3ML, IM, (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) MAGNESIUM 2022-02-15 09:41:00 Radha Sofia [facility] BASIC METABOLIC PANEL (NA, 2022-02-15 09:41:00 Radha Sofia [facility] K, CL, CO2, GLUCOSE, BUN, Medica l Branch CREATININE, CA) CBC WITH DIFF 2022-02-15 09:41:00 Radha Sofia [facility] N-TERMINAL PRO-BNP 2022-02-15 09:41:00 Sofia Garcia [facility] CBC WITH DIFF 2022-02-15 09:41:00 Radha Sofia [facility] BASIC METABOLIC PANEL (NA, 2022-02-15 09:41:00 Sofia Garcia [facility] K, CL, CO2, GLUCOSE, BUN, Medica l Branch CREATININE, CA) MAGNESIUM 2022-02-15 09:41:00 Radha [facility] N-TERMINAL PRO-BNP 2022-02-15 09:41:00 Sofia Garcia [facility] BASIC METABOLIC PANEL (NA, 2022-02-13 09:40:00 Sofia Garcia [facility] K, CL, CO2, GLUCOSE, BUN, Medica l Branch CREATININE, CA) CBC WITH DIFF 2022-02-13 09:40:00 Radha [facility] BASIC METABOLIC PANEL (NA, 2022-02-13 09:40:00 Radha Sofia [facility] K, CL, CO2, GLUCOSE, BUN, Medica l Branch CREATININE, CA) CBC WITH DIFF 2022-02-13 09:40:00 Radha Sofia [facility] TROPONIN I 2022-02-11 23:41:00 Sofia [facility] N-TERMINAL PRO-BNP 2022-02-11 23:41:00 Sofia Garcia [facility] TROPONIN I 2022-02-11 23:41:00 [facility]-BNP 2022-02-11 23:41:00 Sofia Garcia [facility] HB ECG ROUTINE & RHYTHM 2022-02-11 22:15:36 Sofia Garcia Uni versity [facility] TRANSTHORACIC ECHO (TTE) 2022-02-11 21:26:50 [facility] 2022-02-11 21:26:50 [facility] [place] ABDOMEN PELVIS W 2022-02-11 07:45:43 Reilly Means [facility] CT ABDOMEN PELVIS W 2022-02-11 07:45:43 Reilly Means [facility] RAPID INFLUENZA A/B 2022-02-11 06:54:00 Reilly Means [facility] RAPID INFLUENZA A/B 2022-02-11 06:54:00 Reilly Means [facility] URINALYSIS 2022-02-11 06:45:00 Reilly Means [facility] URINE CULTURE 2022-02-11 06:45:00 Reilly Means [facility] URINALYSIS 2022-02-11 06:45:00 Reilly Means [facility] URINE CULTURE 2022-02-11 06:45:00 Reilly Means [facility] HB ECG ROUTINE & RHYTHM 2022-02-11 05:22:08 Reilly Means [facility] HB ECG ROUTINE & RHYTHM 2022-02-11 05:22:08 Reilly Means [facility] BLOOD CULTURE SCREEN 2022-02-11 04:58:00 Reilly Means [facility] TROPONIN I 2022-02-11 04:58:00 Reilly Means [facility] COMP. METABOLIC PANEL 2022-02-11 04:58:00 Reilly Means [facility] ([id number]) Medical Branch CBC WITH DIFF 2022-02-11 04:58:00 Reilly Means [facility] PROTHROMBIN TIME / INR 2022-02-11 04:58:00 Reilly Means [facility] ACTIVATED PARTIAL THRMPLAS 2022-02-11 04:58:00 Reilly Means [facility] N-TERMINAL PRO-BNP 2022-02-11 04:58:00 Reilly Means [facility] LACTIC ACID WHOLE BLOOD 2022-02-11 04:58:00 Reilly [facility] COVID-19 (ID NOW RAPID 2022-02-11 04:58:00 Reilly Means [facility] TESTING) Medical Branch LAB ONLY COVID 2022-02-11 04:58:00 Reilly Means [facility] CBC WITH DIFF 2022-02-11 04:58:00 Reilly Means [facility] ACTIVATED PARTIAL THRMPLAS 2022-02-11 04:58:00 Reilly Means [facility] PROTHROMBIN TIME / INR 2022-02-11 04:58:00 Reilly Means [facility] COVID-19 (ID NOW RAPID 2022-02-11 04:58:00 Reilly Means [facility] TESTING) Medical Branch COMP. METABOLIC PANEL 2022-02-11 04:58:00 Reilly Means [facility] ([id number]) Medical Branch TROPONIN I 2022-02-11 04:58:00 Reilly Means [facility] N-TERMINAL PRO-BNP 2022-02-11 04:58:00 Reilly Means [facility] BLOOD CULTURE SCREEN 2022-02-11 04:58:00 Reilly Means [facility] LACTIC ACID WHOLE BLOOD 2022-02-11 04:58:00 Reilly Means [facility] LAB ONLY COVID 2022-02-11 04:58:00 Reilly Means [facility] XR CHEST 1 VW 2022-02-11 04:27:42 Reilly Means [facility] XR CHEST 1 VW 2022-02-11 04:27:42 [facility] HOSPITAL ADMISSION 2022-02-10 05:01:00 Doctor Unassigned, [facility] Name [facility] HOSPITAL ADMISSION 2022-02-10 05:01:00 Doctor Unassigned, [facility] ECG 12-LEAD 2021-07-14 15:14:00 Elan Lira [facility] [id number] 2021-06-17 00:00:00 RIKY CLARK [facility] GASTROINTESTINAL PANEL 2020-12-08 22:21:00 [facility] XR ABDOMEN 1 VW 2020-12-08 18:06:32 Eliseo Arce spital OR [place] < 1 HOUR 2020-09-05 22:39:00 Eliseo Arce spital SURGICAL PATHOLOGY REQUEST 2020-09-05 21:54:00 Eliseo Arce [facility] XR CHEST 1 VW PORTABLE 2020-09-05 19:55:00 Eliseo Arce [facility] DISCHARGE PATIENT 2020-09-05 17:27:55 Lucas Harris [facility] CA AN ELECTIVE 2020-09-05 16:47:23 Kirit Flood [facility] ENDOTRACHEAL AIRWAY EGD, INTRAOPERATIVE 2020-09-05 16:27:00 [facility] 2020-09-05 15:04:00 [facility] TIME (PTT) M. PROTHROMBIN TIME WITH INR 2020-09-05 15:04:00 [facility] hospitalM[facility] M. Plan of Care Planned Activity Planned Date Details Comments Source Future Scheduled 2022-06-11 SHINGLES VACCINES (1 Met [facility] Test 16:10:12 of 2) [code = SHINGLES VACCINES (1 of 2)] Future Scheduled 2022-06-11 BREAST CANCER [facility] Test 16:10:12 SCREENING [code = BREAST CANCER SCREENING] Future Scheduled 2022-06-11 COLONOSCOPY SCREENING [facility] Test 16:10:12 [code = COLONOSCOPY SCREENING] Future Scheduled 2022-06-11 HEPATITIS B VACCINES Met [facility] Test 16:10:12 (1 of 3 - Risk 3-dose series) [code = HEPATITIS B VACCINES (1 of 3 - Risk 3-dose series)] Future Scheduled 2022-06-11 COVID-19 VACCINE (3 - Me [facility] Test 16:10:12 Booster for Pfizer series) [code = COVID-19 VACCINE (3 - Booster for Pfizer series)] Future Scheduled 2022-06-11 65+ [facility]AL [facility] 16:10:12 VACCINE (4 - PPSV23 if available, else PCV20) [code = 65+ PNEUMOCOCCAL VACCINE (4 - PPSV23 if available, else PCV20)] Future Scheduled 2022-06-11 INFLUENZA VACCINE [facility] Test 16:10:12 [code = INFLUENZA VACCINE] Future Scheduled 2022-06-11 SHINGLES VACCINES (1 Met [facility] Test 16:10:12 of 2) [code = SHINGLES VACCINES (1 of 2)] Future Scheduled 2022-06-11 BREAST CANCER [facility] Test 16:10:12 SCREENING [code = BREAST CANCER SCREENING] Future Scheduled 2022-06-11 COLONOSCOPY SCREENING [facility] Test 16:10:12 [code = COLONOSCOPY SCREENING] Future Scheduled 2022-06-11 HEPATITIS B VACCINES Met [facility] Test 16:10:12 (1 of 3 - Risk 3-dose series) [code = HEPATITIS B VACCINES (1 of 3 - Risk 3-dose series)] Future Scheduled 2022-06-11 COVID-19 VACCINE (3 - Me [facility] Test 16:10:12 Booster for Pfizer series) [code = COVID-19 VACCINE (3 - Booster for Pfizer series)] Future Scheduled 2022-06-11 65+ [facility]CCAL [facility] 16:10:12 VACCINE (4 - PPSV23 if available, else PCV20) [code = 65+ PNEUMOCOCCAL VACCINE (4 - PPSV23 if available, else PCV20)] Future Scheduled 2022-06-11 INFLUENZA VACCINE [facility] Test 16:10:12 [code = INFLUENZA VACCINE] Future Scheduled 2022-06-11 SHINGLES VACCINES (1 Met [facility] Test 16:10:12 of 2) [code = SHINGLES VACCINES (1 of 2)] Future Scheduled 2022-06-11 BREAST CANCER [facility] Test 16:10:12 SCREENING [code = BREAST CANCER SCREENING] Future Scheduled 2022-06-11 COLONOSCOPY SCREENING [facility] Test 16:10:12 [code = COLONOSCOPY SCREENING] Future Scheduled 2022-06-11 HEPATITIS B VACCINES Met [facility] Test 16:10:12 (1 of 3 - Risk 3-dose series) [code = HEPATITIS B VACCINES (1 of 3 - Risk 3-dose series)] Future Scheduled 2022-06-11 COVID-19 VACCINE (3 - Me [facility] Test 16:10:12 Booster for Pfizer series) [code = COVID-19 VACCINE (3 - Booster for Pfizer series)] Future Scheduled 2022-06-11 65+ [facility]CCAL [facility] 16:10:12 VACCINE (4 - PPSV23 if available, else PCV20) [code = 65+ PNEUMOCOCCAL VACCINE (4 - PPSV23 if available, else PCV20)] Future Scheduled 2022-06-11 INFLUENZA VACCINE [facility] Test 16:10:12 [code = INFLUENZA VACCINE] Future Scheduled 2022-06-11 SHINGLES VACCINES (1 Met [facility] Test 16:10:12 of 2) [code = SHINGLES VACCINES (1 of 2)] Future Scheduled 2022-06-11 BREAST CANCER [facility] Test 16:10:12 SCREENING [code = BREAST CANCER SCREENING] Future Scheduled 2022-06-11 COLONOSCOPY SCREENING [facility] Test 16:10:12 [code = COLONOSCOPY SCREENING] Future Scheduled 2022-06-11 HEPATITIS B VACCINES Met [facility] Test 16:10:12 (1 of 3 - Risk 3-dose series) [code = HEPATITIS B VACCINES (1 of 3 - Risk 3-dose series)] Future Scheduled 2022-06-11 COVID-19 VACCINE (3 - Me [facility] Test 16:10:12 Booster for Pfizer series) [code = COVID-19 VACCINE (3 - Booster for Pfizer series)] Future Scheduled 2022-06-11 65+ [facility]OCOCCAL [facility] Test 16:10:12 VACCINE (4 - PPSV23 if available, else PCV20) [code = 65+ PNEUMOCOCCAL VACCINE (4 - PPSV23 if available, else PCV20)] Future Scheduled 2022-06-11 INFLUENZA VACCINE [facility] Test 16:10:12 [code = INFLUENZA VACCINE] Future Scheduled 2022-06-11 SHINGLES VACCINES (1 Met [facility] Test 16:10:12 of 2) [code = SHINGLES VACCINES (1 of 2)] Future Scheduled 2022-06-11 BREAST CANCER [facility] Test 16:10:12 SCREENING [code = BREAST CANCER SCREENING] Future Scheduled 2022-06-11 COLONOSCOPY SCREENING [facility] Test 16:10:12 [code = COLONOSCOPY SCREENING] Future Scheduled 2022-06-11 HEPATITIS B VACCINES Met [facility] Test 16:10:12 (1 of 3 - Risk 3-dose series) [code = HEPATITIS B VACCINES (1 of 3 - Risk 3-dose series)] Future Scheduled 2022-06-11 COVID-19 VACCINE (3 - [facility] Test 16:10:12 Booster for Pfizer series) [code = COVID-19 VACCINE (3 - Booster for Pfizer series)] Future Scheduled 2022-06-11 65+ [facility]CCAL [facility] 16:10:12 VACCINE (4 - PPSV23 if available, else PCV20) [code = 65+ PNEUMOCOCCAL VACCINE (4 - PPSV23 if available, else PCV20)] Future Scheduled 2022-06-11 INFLUENZA VACCINE [facility] Test 16:10:12 [code = INFLUENZA VACCINE] Future Scheduled 2022-06-11 SHINGLES VACCINES (1 Met [facility] Test 16:10:12 of 2) [code = SHINGLES VACCINES (1 of 2)] Future Scheduled 2022-06-11 BREAST CANCER [facility] Test 16:10:12 SCREENING [code = BREAST CANCER SCREENING] Future Scheduled 2022-06-11 COLONOSCOPY SCREENING [facility] Test 16:10:12 [code = COLONOSCOPY SCREENING] Future Scheduled 2022-06-11 HEPATITIS B VACCINES Met [facility] Test 16:10:12 (1 of 3 - Risk 3-dose series) [code = HEPATITIS B VACCINES (1 of 3 - Risk 3-dose series)] Future Scheduled 2022-06-11 COVID-19 VACCINE (3 - [facility] Test 16:10:12 Booster for Pfizer series) [code = COVID-19 VACCINE (3 - Booster for Pfizer series)] Future Scheduled 2022-06-11 65+ [facility]CCAL [facility] 16:10:12 VACCINE (4 - PPSV23 if available, else PCV20) [code = 65+ PNEUMOCOCCAL VACCINE (4 - PPSV23 if available, else PCV20)] Future Scheduled 2022-06-11 INFLUENZA VACCINE [facility] Test 16:10:12 [code = INFLUENZA VACCINE] Future Scheduled 2022-06-11 SHINGLES VACCINES (1 Met [facility] Test 16:10:12 of 2) [code = SHINGLES VACCINES (1 of 2)] Future Scheduled 2022-06-11 BREAST CANCER [facility] Test 16:10:12 SCREENING [code = BREAST CANCER SCREENING] Future Scheduled 2022-06-11 COLONOSCOPY SCREENING [facility] Test 16:10:12 [code = COLONOSCOPY SCREENING] Future Scheduled 2022-06-11 HEPATITIS B VACCINES Met [facility] Test 16:10:12 (1 of 3 - Risk 3-dose series) [code = HEPATITIS B VACCINES (1 of 3 - Risk 3-dose series)] Future Scheduled 2022-06-11 COVID-19 VACCINE (3 - [facility] Test 16:10:12 Booster for Pfizer series) [code = COVID-19 VACCINE (3 - Booster for Pfizer series)] Future Scheduled 2022-06-11 65+ [facility]CCAL [facility] Test 16:10:12 VACCINE (4 - PPSV23 if available, else PCV20) [code = 65+ PNEUMOCOCCAL VACCINE (4 - PPSV23 if available, else PCV20)] Future Scheduled 2022-06-11 INFLUENZA VACCINE Method [facility] Test 16:10:12 [code = INFLUENZA VACCINE] Future Scheduled 2022-06-11 SHINGLES VACCINES (1 Met [facility] Test 16:10:12 of 2) [code = SHINGLES VACCINES (1 of 2)] Future Scheduled 2022-06-11 BREAST CANCER [facility] Test 16:10:12 SCREENING [code = BREAST CANCER SCREENING] Future Scheduled 2022-06-11 COLONOSCOPY SCREENING [facility] Test 16:10:12 [code = COLONOSCOPY SCREENING] Future Scheduled 2022-06-11 HEPATITIS B VACCINES Met [facility] Test 16:10:12 (1 of 3 - Risk 3-dose series) [code = HEPATITIS B VACCINES (1 of 3 - Risk 3-dose series)] Future Scheduled 2022-06-11 COVID-19 VACCINE (3 - [facility] Test 16:10:12 Booster for Pfizer series) [code = COVID-19 VACCINE (3 - Booster for Pfizer series)] Future Scheduled 2022-06-11 65+ [facility]AL [facility] 16:10:12 VACCINE (4 - PPSV23 if available, else PCV20) [code = 65+ PNEUMOCOCCAL VACCINE (4 - PPSV23 if available, else PCV20)] Future Scheduled 2022-06-11 INFLUENZA VACCINE [facility] Test 16:10:12 [code = INFLUENZA VACCINE] Future Scheduled 2022-05-10 SHINGLES VACCINES (1 Met [facility] Test 10:21:35 of 2) [code = SHINGLES VACCINES (1 of 2)] Future Scheduled 2022-05-10 BREAST CANCER [facility] Test 10:21:35 SCREENING [code = BREAST CANCER SCREENING] Future Scheduled 2022-05-10 COLONOSCOPY SCREENING [facility] Test 10:21:35 [code = COLONOSCOPY SCREENING] Future Scheduled 2022-05-10 HEPATITIS B VACCINES Met [facility] Test 10:21:35 (1 of 3 - Risk 3-dose series) [code = HEPATITIS B VACCINES (1 of 3 - Risk 3-dose series)] Future Scheduled 2022-05-10 COVID-19 VACCINE (3 - Me [facility] Test 10:21:35 Booster for Pfizer series) [code = COVID-19 VACCINE (3 - Booster for Pfizer series)] Future Scheduled 2022-05-10 65+ [facility]CCAL [facility] 10:21:35 VACCINE (4 - PPSV23 if available, else PCV20) [code = 65+ PNEUMOCOCCAL VACCINE (4 - PPSV23 if available, else PCV20)] Future Scheduled 2022-05-10 INFLUENZA VACCINE [facility] Test 10:21:35 [code = INFLUENZA VACCINE] Future Scheduled 2022-05-10 SHINGLES VACCINES (1 Met [facility] Test 10:21:35 of 2) [code = SHINGLES VACCINES (1 of 2)] Future Scheduled 2022-05-10 BREAST CANCER [facility] Test 10:21:35 SCREENING [code = BREAST CANCER SCREENING] Future Scheduled 2022-05-10 COLONOSCOPY SCREENING [facility] Test 10:21:35 [code = COLONOSCOPY SCREENING] Future Scheduled 2022-05-10 HEPATITIS B VACCINES [facility] Test 10:21:35 (1 of 3 - Risk 3-dose series) [code = HEPATITIS B VACCINES (1 of 3 - Risk 3-dose series)] Future Scheduled 2022-05-10 COVID-19 VACCINE (3 - [facility] Test 10:21:35 Booster for Pfizer series) [code = COVID-19 VACCINE (3 - Booster for Pfizer series)] Future Scheduled 2022-05-10 65+ PNEUMOCOCCAL [facility] Test 10:21:35 VACCINE (4 - PPSV23 if available, else PCV20) [code = 65+ PNEUMOCOCCAL VACCINE (4 - PPSV23 if available, else PCV20)] Future Scheduled 2022-05-10 INFLUENZA VACCINE [facility] Test 10:21:35 [code = INFLUENZA VACCINE] Future Scheduled 2022-05-06 SHINGLES VACCINES (1 Met [facility] Test 14:03:13 of 2) [code = SHINGLES VACCINES (1 of 2)] Future Scheduled 2022-05-06 BREAST CANCER [facility] Test 14:03:13 SCREENING [code = BREAST CANCER SCREENING] Future Scheduled 2022-05-06 COLONOSCOPY SCREENING [facility] Test 14:03:13 [code = COLONOSCOPY SCREENING] Future Scheduled 2022-05-06 HEPATITIS B VACCINES [facility] Test 14:03:13 (1 of 3 - Risk 3-dose series) [code = HEPATITIS B VACCINES (1 of 3 - Risk 3-dose series)] Future Scheduled 2022-05-06 COVID-19 VACCINE (3 - [facility] Test 14:03:13 Booster for Pfizer series) [code = COVID-19 VACCINE (3 - Booster for Pfizer series)] Future Scheduled 2022-05-06 65+ PNEUMOCOCCAL [facility] Test 14:03:13 VACCINE (4 - PPSV23 if available, else PCV20) [code = 65+ PNEUMOCOCCAL VACCINE (4 - PPSV23 if available, else PCV20)] Future Scheduled 2022-05-06 INFLUENZA VACCINE [facility] Test 14:03:13 [code = INFLUENZA VACCINE] Future Scheduled 2022-04-30 SHINGLES VACCINES (1 Met [facility] Test 01:07:32 of 2) [code = SHINGLES VACCINES (1 of 2)] Future Scheduled 2022-04-30 BREAST CANCER [facility] Test 01:07:32 SCREENING [code = BREAST CANCER SCREENING] Future Scheduled 2022-04-30 COLONOSCOPY SCREENING [facility] Test 01:07:32 [code = COLONOSCOPY SCREENING] Future Scheduled 2022-04-30 HEPATITIS B VACCINES [facility] Test 01:07:32 (1 of 3 - Risk 3-dose series) [code = HEPATITIS B VACCINES (1 of 3 - Risk 3-dose series)] Future Scheduled 2022-04-30 COVID-19 VACCINE (3 - [facility] Test 01:07:32 Booster for Pfizer series) [code = COVID-19 VACCINE (3 - Booster for Pfizer series)] Future Scheduled 2022-04-30 65[facility] VACCINE (4 - PPSV23 if available, else PCV20) [code = 65+ PNEUMOCOCCAL VACCINE (4 - PPSV23 if available, else PCV20)] Future Scheduled 2022-04-30 INFLUENZA VACCINE Method [facility] Test 01:07:32 [code = INFLUENZA VACCINE] Future Scheduled 2022-04-30 SHINGLES VACCINES (1 Met [facility] Test 01:07:32 of 2) [code = SHINGLES VACCINES (1 of 2)] Future Scheduled 2022-04-30 BREAST CANCER [facility] Test 01:07:32 SCREENING [code = BREAST CANCER SCREENING] Future Scheduled 2022-04-30 COLONOSCOPY SCREENING [facility] Test 01:07:32 [code = COLONOSCOPY SCREENING] Future Scheduled 2022-04-30 HEPATITIS B VACCINES [facility] Test 01:07:32 (1 of 3 - Risk 3-dose series) [code = HEPATITIS B VACCINES (1 of 3 - Risk 3-dose series)] Future Scheduled 2022-04-30 COVID-19 VACCINE (3 - [facility] Test 01:07:32 Booster for Pfizer series) [code = COVID-19 VACCINE (3 - Booster for Pfizer series)] Future Scheduled 2022-04-30 65+ [facility] 01:07[facility]32 VACCINE (4 - PPSV23 if available, else PCV20) [code = 65+ PNEUMOCOCCAL VACCINE (4 - PPSV23 if available, else PCV20)] Future Scheduled 2022-04-30 INFLUENZA VACCINE [facility] Test 01:07:32 [code = INFLUENZA VACCINE] Future Scheduled 2022-04-30 SHINGLES VACCINES (1 [facility] Test 01:07:32 of 2) [code = SHINGLES VACCINES (1 of 2)] Future Scheduled 2022-04-30 BREAST CANCER [facility] Test 01:07:32 SCREENING [code = BREAST CANCER SCREENING] Future Scheduled 2022-04-30 COLONOSCOPY SCREENING [facility] Test 01:07:32 [code = COLONOSCOPY SCREENING] Future Scheduled 2022-04-30 HEPATITIS B VACCINES [facility] Test 01:07:32 (1 of 3 - Risk 3-dose series) [code = HEPATITIS B VACCINES (1 of 3 - Risk 3-dose series)] Future Scheduled 2022-04-30 COVID-19 VACCINE (3 - [facility] Test 01:07:32 Booster for Pfizer series) [code = COVID-19 VACCINE (3 - Booster for Pfizer series)] Future Scheduled 2022-04-30 65+ PNEUMOCOCCAL [facility] Test 01:07:32 VACCINE (4 - PPSV23 if available, else PCV20) [code = 65+ PNEUMOCOCCAL VACCINE (4 - PPSV23 if available, else PCV20)] Future Scheduled 2022-04-30 INFLUENZA VACCINE [facility] Test 01:07:32 [code = INFLUENZA VACCINE] Future Scheduled 2022-04-25 SHINGLES VACCINES (1 Met [facility] Test 01:45:02 of 2) [code = SHINGLES VACCINES (1 of 2)] Future Scheduled 2022-04-25 BREAST CANCER [facility] Test 01:45:02 SCREENING [code = BREAST CANCER SCREENING] Future Scheduled 2022-04-25 COLONOSCOPY SCREENING [facility] Test 01:45:02 [code = COLONOSCOPY SCREENING] Future Scheduled 2022-04-25 HEPATITIS B VACCINES [facility] Test 01:45:02 (1 of 3 - Risk 3-dose series) [code = HEPATITIS B VACCINES (1 of 3 - Risk 3-dose series)] Future Scheduled 2022-04-25 COVID-19 VACCINE (3 - [facility] Test 01:45:02 Booster for Pfizer series) [code = COVID-19 VACCINE (3 - Booster for Pfizer series)] Future Scheduled 2022-04-25 65[facility]02 VACCINE (4 - PPSV23 if available, else PCV20) [code = 65+ PNEUMOCOCCAL VACCINE (4 - PPSV23 if available, else PCV20)] Future Scheduled 2022-04-25 INFLUENZA VACCINE [facility] Test 01:45:02 [code = INFLUENZA VACCINE] Future Scheduled 2022-03-25 SHINGLES VACCINES (1 Met [facility] Test 14:48:42 of 2) [code = SHINGLES VACCINES (1 of 2)] Future Scheduled 2022-03-25 BREAST CANCER [facility] Test 14:48:42 SCREENING [code = BREAST CANCER SCREENING] Future Scheduled 2022-03-25 COLONOSCOPY SCREENING [facility] Test 14:48:42 [code = COLONOSCOPY SCREENING] Future Scheduled 2022-03-25 HEPATITIS B VACCINES [facility] Test 14:48:42 (1 of 3 - Risk 3-dose series) [code = HEPATITIS B VACCINES (1 of 3 - Risk 3-dose series)] Future Scheduled 2022-03-25 COVID-19 VACCINE (3 - [facility] Test 14:48:42 Booster for Pfizer series) [code = COVID-19 VACCINE (3 - Booster for Pfizer series)] Future Scheduled 2022-03-25 65+ [facility] 14:48:42 VACCINE (4 - PPSV23 if available, else PCV20) [code = 65+ PNEUMOCOCCAL VACCINE (4 - PPSV23 if available, else PCV20)] Future Scheduled 2022-03-25 INFLUENZA VACCINE Method [facility] Test 14:48:42 [code = INFLUENZA VACCINE] Future Scheduled 2022-03-25 SHINGLES VACCINES (1 Met [facility] Test 14:48:42 of 2) [code = SHINGLES VACCINES (1 of 2)] Future Scheduled 2022-03-25 BREAST CANCER [facility] Test 14:48:42 SCREENING [code = BREAST CANCER SCREENING] Future Scheduled 2022-03-25 COLONOSCOPY SCREENING [facility] Test 14:48:42 [code = COLONOSCOPY SCREENING] Future Scheduled 2022-03-25 HEPATITIS B VACCINES [facility] Test 14:48:42 (1 of 3 - Risk 3-dose series) [code = HEPATITIS B VACCINES (1 of 3 - Risk 3-dose series)] Future Scheduled 2022-03-25 COVID-19 VACCINE (3 - [facility] Test 14:48:42 Booster for Pfizer series) [code = COVID-19 VACCINE (3 - Booster for Pfizer series)] Future Scheduled 2022-03-25 65+ PNEUMOCOCCAL [facility] Test 14:48:42 VACCINE (4 - PPSV23 if available, else PCV20) [code = 65+ PNEUMOCOCCAL VACCINE (4 - PPSV23 if available, else PCV20)] Future Scheduled 2022-03-25 INFLUENZA VACCINE Method [facility] Test 14:48:42 [code = INFLUENZA VACCINE] Future Scheduled 2022-03-25 SHINGLES VACCINES (1 Met [facility] Test 14:48:42 of 2) [code = SHINGLES VACCINES (1 of 2)] Future Scheduled 2022-03-25 BREAST CANCER [facility] Test 14:48:42 SCREENING [code = BREAST CANCER SCREENING] Future Scheduled 2022-03-25 COLONOSCOPY SCREENING [facility] Test 14:48:42 [code = COLONOSCOPY SCREENING] Future Scheduled 2022-03-25 HEPATITIS B VACCINES [facility] Test 14:48:42 (1 of 3 - Risk 3-dose series) [code = HEPATITIS B VACCINES (1 of 3 - Risk 3-dose series)] Future Scheduled 2022-03-25 COVID-19 VACCINE (3 - [facility] Test 14:48:42 Booster for Pfizer series) [code = COVID-19 VACCINE (3 - Booster for Pfizer series)] Future Scheduled 2022-03-25 65+ PNEUMOCOCCAL [facility] Test 14:48:42 VACCINE (4 - PPSV23 if available, else PCV20) [code = 65+ PNEUMOCOCCAL VACCINE (4 - PPSV23 if available, else PCV20)] Future Scheduled 2022-03-25 INFLUENZA VACCINE Method [facility] Test 14:48:42 [code = INFLUENZA VACCINE] Future Scheduled 2022-03-25 SHINGLES VACCINES (1 Met [facility] Test 14:48:42 of 2) [code = SHINGLES VACCINES (1 of 2)] Future Scheduled 2022-03-25 BREAST CANCER [facility] Test 14:48:42 SCREENING [code = BREAST CANCER SCREENING] Future Scheduled 2022-03-25 COLONOSCOPY SCREENING [facility] Test 14:48:42 [code = COLONOSCOPY SCREENING] Future Scheduled 2022-03-25 HEPATITIS B VACCINES Met [facility] Test 14:48:42 (1 of 3 - Risk 3-dose series) [code = HEPATITIS B VACCINES (1 of 3 - Risk 3-dose series)] Future Scheduled 2022-03-25 COVID-19 VACCINE (3 - [facility] Test 14:48:42 Booster for [...] Scheduled 2022-03-25 SHINGLES VACCINES (1 Met [facility] Test 14:48:42 of 2) [code = SHINGLES VACCINES (1 of 2)] Future Scheduled 2022-03-25 BREAST CANCER [facility] Test 14:48:42 SCREENING [code = BREAST CANCER SCREENING] Future Scheduled 2022-03-[address] [facility] Test 14:48:42 [code = COLONOSCOPY SCREENING] Future Scheduled 2022-03-25 HEPATITIS B VACCINES [facility] Test 14:48:42 (1 of 3 - Risk 3-dose series) [code = HEPATITIS B VACCINES (1 of 3 - Risk 3-dose series)] Future Scheduled 2022-03-25 COVID-19 VACCINE (3 - [facility] Test 14:48:42 Booster for Pfizer series) [code = COVID-19 VACCINE (3 - Booster for Pfizer series)] Future Scheduled 2022-03-25 65+ [facility] 14:48[facility]42 VACCINE (4 - PPSV23 if available, else PCV20) [code = 65+ PNEUMOCOCCAL VACCINE (4 - PPSV23 if available, else PCV20)] Future Scheduled 2022-03-25 INFLUENZA VACCINE [facility] Test 14:48:42 [code = INFLUENZA VACCINE] Future Scheduled 2022-03-25 SHINGLES VACCINES (1 Met [facility] Test 14:48:42 of 2) [code = SHINGLES VACCINES (1 of 2)] Future Scheduled 2022-03-25 BREAST CANCER [facility] Test 14:48:42 SCREENING [code = BREAST CANCER SCREENING] Future Scheduled 2022-03-[address] [facility] Test 14:48:42 [code = COLONOSCOPY SCREENING] Future Scheduled 2022-03-25 HEPATITIS B VACCINES [facility] Test 14:48:42 (1 of 3 - Risk 3-dose series) [code = HEPATITIS B VACCINES (1 of 3 - Risk 3-dose series)] Future Scheduled 2022-03-25 COVID-19 VACCINE (3 - [facility] Test 14:48:42 Booster for Pfizer series) [code = COVID-19 VACCINE (3 - Booster for Pfizer series)] Future Scheduled 2022-03-25 65+ [facility] 14:[facility]42 VACCINE (4 - PPSV23 if available, else PCV20) [code = 65+ PNEUMOCOCCAL VACCINE (4 - PPSV23 if available, else PCV20)] Future Scheduled 2022-03-25 INFLUENZA VACCINE [facility] Test 14:48:42 [code = INFLUENZA VACCINE] Future Scheduled 2022-03-25 SHINGLES VACCINES (1 Met [facility] Test 14:48:42 of 2) [code = SHINGLES VACCINES (1 of 2)] Future Scheduled 2022-03-25 BREAST CANCER [facility] Test 14:48:42 SCREENING [code = BREAST CANCER SCREENING] Future Scheduled 2022-03-25 COLONOSCOPY SCREENING [facility] Test 14:48:42 [code = COLONOSCOPY SCREENING] Future Scheduled 2022-03-25 HEPATITIS B VACCINES [facility] Test 14:48:42 (1 of 3 - Risk 3-dose series) [code = HEPATITIS B VACCINES (1 of 3 - Risk 3-dose series)] Future Scheduled 2022-03-25 COVID-19 VACCINE (3 - [facility] Test 14:48:42 Booster for Pfizer series) [code = COVID-19 VACCINE (3 - Booster for Pfizer series)] Future Scheduled 2022-03-25 65+ [facility] 14:48:42 VACCINE (4 - PPSV23 if available, else PCV20) [code = 65+ PNEUMOCOCCAL VACCINE (4 - PPSV23 if available, else PCV20)] Future Scheduled 2022-03-25 INFLUENZA VACCINE [facility] Test 14:48:42 [code = INFLUENZA VACCINE] Future Scheduled 2022-03-25 SHINGLES VACCINES (1 Met [facility] Test 14:48:42 of 2) [code = SHINGLES VACCINES (1 of 2)] Future Scheduled 2022-03-25 BREAST CANCER [facility] Test 14:48:42 SCREENING [code = BREAST CANCER SCREENING] Future Scheduled 2022-03-25 COLONOSCOPY SCREENING [facility] Test 14:48:42 [code = COLONOSCOPY SCREENING] Future Scheduled 2022-03-25 HEPATITIS B VACCINES [facility] Test 14:48:42 (1 of 3 - Risk 3-dose series) [code = HEPATITIS B VACCINES (1 of 3 - Risk 3-dose series)] Future Scheduled 2022-03-25 COVID-19 VACCINE (3 - [facility] Test 14:48:42 Booster for Pfizer series) [code = COVID-19 VACCINE (3 - Booster for Pfizer series)] Future Scheduled 2022-03-25 65+ [facility] 14:48:42 VACCINE (4 - PPSV23 if available, else PCV20) [code = 65+ PNEUMOCOCCAL VACCINE (4 - PPSV23 if available, else PCV20)] Future Scheduled 2022-03-25 INFLUENZA VACCINE [facility] Test 14:48:42 [code = INFLUENZA VACCINE] Future Scheduled 2022-03-25 SHINGLES VACCINES (1 Met [facility] Test 14:48:42 of 2) [code = SHINGLES VACCINES (1 of 2)] Future Scheduled 2022-03-25 BREAST CANCER [facility] Test 14:48:42 SCREENING [code = BREAST CANCER SCREENING] Future Scheduled 2022-03-25 COLONOSCOPY SCREENING [facility] Test 14:48:42 [code = COLONOSCOPY SCREENING] Future Scheduled 2022-03-25 HEPATITIS B VACCINES [facility] Test 14:48:42 (1 of 3 - Risk 3-dose series) [code = HEPATITIS B VACCINES (1 of 3 - Risk 3-dose series)] Future Scheduled 2022-03-25 COVID-19 VACCINE (3 - [facility] Test 14:48:42 Booster for [...] Scheduled 2022-03-04 SHINGLES VACCINES (1 Met [facility] Test 14:03:57 of 2) [code = SHINGLES VACCINES (1 of 2)] Future Scheduled 2022-03-04 BREAST CANCER [facility] Test 14:03:57 SCREENING [code = BREAST CANCER SCREENING] Future Scheduled 2022-03-04 COLONOSCOPY SCREENING [facility] Test 14:03:57 [code = COLONOSCOPY SCREENING] Future Scheduled 2022-03-04 HEPATITIS B VACCINES [facility] Test 14:03:57 (1 of 3 - Risk 3-dose series) [code = HEPATITIS B VACCINES (1 of 3 - Risk 3-dose series)] Future Scheduled 2022-03-04 COVID-19 VACCINE (3 - [facility] Test 14:03:57 Booster for Pfizer series) [code = COVID-19 VACCINE (3 - Booster for Pfizer series)] Future Scheduled 2022-03-04 65+ PNEUMOCOCCAL [facility] Test 14:03:57 VACCINE (4 - PPSV23 if available, else PCV20) [code = 65+ PNEUMOCOCCAL VACCINE (4 - PPSV23 if available, else PCV20)] Future Scheduled 2022-03-04 INFLUENZA VACCINE [facility] Test 14:03:57 [code = INFLUENZA VACCINE] Future Scheduled 2022-03-04 SHINGLES VACCINES (1 Met [facility] Test 14:03:57 of 2) [code = SHINGLES VACCINES (1 of 2)] Future Scheduled 2022-03-04 BREAST CANCER [facility] Test 14:03:57 SCREENING [code = BREAST CANCER SCREENING] Future Scheduled 2022-03-04 COLONOSCOPY SCREENING [facility] Test 14:03:57 [code = COLONOSCOPY SCREENING] Future Scheduled 2022-03-04 HEPATITIS B VACCINES [facility] Test 14:03:57 (1 of 3 - Risk 3-dose series) [code = HEPATITIS B VACCINES (1 of 3 - Risk 3-dose series)] Future Scheduled 2022-03-04 COVID-19 VACCINE (3 - [facility] Test 14:03:57 Booster for Pfizer series) [code = COVID-19 VACCINE (3 - Booster for Pfizer series)] Future Scheduled 2022-03-04 65+ [facility] 14:03:57 VACCINE (4 - PPSV23 if available, else PCV20) [code = 65+ PNEUMOCOCCAL VACCINE (4 - PPSV23 if available, else PCV20)] Future Scheduled 2022-03-04 INFLUENZA VACCINE Method [facility] Test 14:03:57 [code = INFLUENZA VACCINE] Future Scheduled 2022-03-04 SHINGLES VACCINES (1 Met [facility] Test 14:03:57 of 2) [code = SHINGLES VACCINES (1 of 2)] Future Scheduled 2022-03-04 BREAST CANCER [facility] Test 14:03:57 SCREENING [code = BREAST CANCER SCREENING] Future Scheduled 2022-03-04 COLONOSCOPY SCREENING [facility] Test 14:03:57 [code = COLONOSCOPY SCREENING] Future Scheduled 2022-03-04 HEPATITIS B VACCINES [facility] Test 14:03:57 (1 of 3 - Risk 3-dose series) [code = HEPATITIS B VACCINES (1 of 3 - Risk 3-dose series)] Future Scheduled 2022-03-04 COVID-19 VACCINE (3 - [facility] Test 14:03:57 Booster for Pfizer series) [code = COVID-19 VACCINE (3 - Booster for Pfizer series)] Future Scheduled 2022-03-04 65+ [facility] 14:03:57 VACCINE (4 - PPSV23 if available, else PCV20) [code = 65+ PNEUMOCOCCAL VACCINE (4 - PPSV23 if available, else PCV20)] Future Scheduled 2022-03-04 INFLUENZA VACCINE Method [facility] Test 14:03:57 [code = INFLUENZA VACCINE] Future Scheduled 2022-03-04 SHINGLES VACCINES (1 Met [facility] Test 14:03:57 of 2) [code = SHINGLES VACCINES (1 of 2)] Future Scheduled 2022-03-04 BREAST CANCER [facility] Test 14:03:57 SCREENING [code = BREAST CANCER SCREENING] Future Scheduled 2022-03-04 COLONOSCOPY SCREENING [facility] Test 14:03:57 [code = COLONOSCOPY SCREENING] Future Scheduled 2022-03-04 HEPATITIS B VACCINES [facility] Test 14:03:57 (1 of 3 - Risk 3-dose series) [code = HEPATITIS B VACCINES (1 of 3 - Risk 3-dose series)] Future Scheduled 2022-03-04 COVID-19 VACCINE (3 - [facility] Test 14:03:57 Booster for Pfizer series) [code = COVID-19 VACCINE (3 - Booster for Pfizer series)] Future Scheduled 2022-03-04 65+ PNEUMOCOCCAL [facility] Test 14:03:57 VACCINE (4 - PPSV23 if available, else PCV20) [code = 65+ PNEUMOCOCCAL VACCINE (4 - PPSV23 if available, else PCV20)] Future Scheduled 2022-03-04 INFLUENZA VACCINE Method [facility] Test 14:03:57 [code = INFLUENZA VACCINE] Future Scheduled 2022-02-11 SHINGLES VACCINES (1 Met [facility] Test 13:39:12 of 2) [code = SHINGLES VACCINES (1 of 2)] Future Scheduled 2022-02-11 BREAST CANCER [facility] Test 13:39:12 SCREENING [code = BREAST CANCER SCREENING] Future Scheduled 2022-02-11 COLONOSCOPY SCREENING [facility] Test 13:39:12 [code = COLONOSCOPY SCREENING] Future Scheduled 2022-02-11 HEPATITIS B VACCINES [facility] Test 13:39:12 (1 of 3 - Risk 3-dose series) [code = HEPATITIS B VACCINES (1 of 3 - Risk 3-dose series)] Future Scheduled 2022-02-11 COVID-19 VACCINE (3 - [facility] Test 13:39:12 Booster for Pfizer series) [code = COVID-19 VACCINE (3 - Booster for Pfizer series)] Future Scheduled 2022-02-11 65+ PNEUMOCOCCAL [facility] Test 13:39:12 VACCINE (4 - PPSV23 or PCV20) [code = 65+ PNEUMOCOCCAL VACCINE (4 - PPSV23 or PCV20)] Future Scheduled 2022-02-11 INFLUENZA VACCINE Method [facility] Test 13:39:12 [code = INFLUENZA VACCINE] Future Scheduled 2022-01-29 SHINGLES VACCINES (1 Met [facility] Test 14:07:20 of 2) [code = SHINGLES VACCINES (1 of 2)] Future Scheduled 2022-01-29 BREAST CANCER [facility] Test 14:07:20 SCREENING [code = BREAST CANCER SCREENING] Future Scheduled 2022-01-29 COLONOSCOPY SCREENING [facility] Test 14:07:20 [code = COLONOSCOPY SCREENING] Future Scheduled 2022-01-29 HEPATITIS B VACCINES [facility] Test 14:07:20 (1 of 3 - Risk 3-dose series) [code = HEPATITIS B VACCINES (1 of 3 - Risk 3-dose series)] Future Scheduled 2022-01-29 COVID-19 VACCINE (3 - [facility] Test 14:07:20 Booster for Pfizer series) [code = COVID-19 VACCINE (3 - Booster for Pfizer series)] Future Scheduled 2022-01-29 65+ PNEUMOCOCCAL [facility] Test 14:07:20 VACCINE (4 - PPSV23 or PCV20) [code = 65+ PNEUMOCOCCAL VACCINE (4 - PPSV23 or PCV20)] Future Scheduled 2022-01-29 INFLUENZA VACCINE [facility] Test 14:07:20 [code = INFLUENZA VACCINE] Future Scheduled 2022-01-29 SHINGLES VACCINES (1 Met [facility] Test 14:07:20 of 2) [code = SHINGLES VACCINES (1 of 2)] Future Scheduled 2022-01-29 BREAST CANCER [facility] Test 14:07:20 SCREENING [code = BREAST CANCER SCREENING] Future Scheduled 2022-01-29 COLONOSCOPY SCREENING [facility] Test 14:07:20 [code = COLONOSCOPY SCREENING] Future Scheduled 2022-01-29 HEPATITIS B VACCINES [facility] Test 14:07:20 (1 of 3 - Risk 3-dose series) [code = HEPATITIS B VACCINES (1 of 3 - Risk 3-dose series)] Future Scheduled 2022-01-29 COVID-19 VACCINE (3 - [facility] Test 14:07:20 Booster for Pfizer series) [code = COVID-19 VACCINE (3 - Booster for Pfizer series)] Future Scheduled 2022-01-29 65+ PNEUMOCOCCAL [facility] Test 14:07:20 VACCINE (4 - PPSV23 or PCV20) [code = 65+ PNEUMOCOCCAL VACCINE (4 - PPSV23 or PCV20)] Future Scheduled 2022-01-29 INFLUENZA VACCINE Method [facility] Test 14:07:20 [code = INFLUENZA VACCINE] Future Scheduled 2022-01-29 SHINGLES VACCINES ([facility] [facility] Test 14:07:20 of 2) [code = SHINGLES VACCINES (1 of 2)] Future Scheduled 2022-01-29 BREAST CANCER [facility] Test 14:07:20 SCREENING [code = BREAST CANCER SCREENING] Future Scheduled 2022-01-29 COLONOSCOPY SCREENING [facility] Test 14:07:20 [code = COLONOSCOPY SCREENING] Future Scheduled 2022-01-29 HEPATITIS B VACCINES [facility] Test 14:07:20 (1 of 3 - Risk 3-dose series) [code = HEPATITIS B VACCINES (1 of 3 - Risk 3-dose series)] Future Scheduled 2022-01-29 COVID-19 VACCINE (3 - [facility] Test 14:07:20 Booster for Pfizer series) [code = COVID-19 VACCINE (3 - Booster for Pfizer series)] Future Scheduled 2022-01-29 65+ PNEUMOCOCCAL [facility] Test 14:07:20 VACCINE (4 - PPSV23 or PCV20) [code = 65+ PNEUMOCOCCAL VACCINE (4 - PPSV23 or PCV20)] Future Scheduled 2022-01-29 INFLUENZA VACCINE Method [facility] Test 14:07:20 [code = INFLUENZA VACCINE] Future Scheduled 2022-01-29 SHINGLES VACCINES (1 [facility] Test 14:07:20 of 2) [code = SHINGLES VACCINES (1 of 2)] Future Scheduled 2022-01-29 BREAST CANCER [facility] Test 14:07:20 SCREENING [code = BREAST CANCER SCREENING] Future Scheduled 2022-01-29 COLONOSCOPY SCREENING [facility] Test 14:07:20 [code = COLONOSCOPY SCREENING] Future Scheduled 2022-01-29 HEPATITIS B VACCINES [facility] Test 14:07:20 (1 of 3 - Risk 3-dose series) [code = HEPATITIS B VACCINES (1 of 3 - Risk 3-dose series)] Future Scheduled 2022-01-29 COVID-19 VACCINE (3 - [facility] Test 14:07:20 Booster for Pfizer series) [code = COVID-19 VACCINE (3 - Booster for Pfizer series)] Future Scheduled 2022-01-29 65+ PNEUMOCOCCAL [facility] Test 14:07:20 VACCINE (4 - PPSV23 or PCV20) [code = 65+ PNEUMOCOCCAL VACCINE (4 - PPSV23 or PCV20)] Future Scheduled 2022-01-29 INFLUENZA VACCINE Method [facility] Test 14:07:20 [code = INFLUENZA VACCINE] Future Scheduled 2022-01-20 SHINGLES VACCINES (1 [facility] Test 06:12:34 of 2) [code = SHINGLES VACCINES (1 of 2)] Future Scheduled 2022-01-20 Screening for [facility] Test 06:12:34 malignant neoplasm of cervix (procedure) [code = 971542658] Future Scheduled 2022-01-20 BREAST CANCER [facility] Test 06:12:34 SCREENING [code = BREAST CANCER SCREENING] Future Scheduled 2022-01-20 COLONOSCOPY SCREENING [facility] Test 06:12:34 [code = COLONOSCOPY SCREENING] Future Scheduled 2022-01-20 HEPATITIS B VACCINES [facility] Test 06:12:34 (1 of 3 - Risk 3-dose series) [code = HEPATITIS B VACCINES (1 of 3 - Risk 3-dose series)] Future Scheduled 2022-01-20 COVID-19 VACCINE (3 - [facility] Test 06:12:34 Booster for Pfizer series) [code = COVID-19 VACCINE (3 - Booster for Pfizer series)] Future Scheduled 2022-01-20 65+ PNEUMOCOCCAL [facility] Test 06:12:34 VACCINE (4 - PPSV23 or PCV20) [code = 65+ PNEUMOCOCCAL VACCINE (4 - PPSV23 or PCV20)] Future Scheduled 2022-01-20 INFLUENZA VACCINE Method [facility] Test 06:12:34 [code = INFLUENZA VACCINE] Future Scheduled 2022-01-16 SHINGLES VACCINES (1 [facility] Test 12:09:25 of 2) [code = SHINGLES VACCINES (1 of 2)] Future Scheduled 2022-01-16 Screening for [facility] Test 12:09:25 malignant neoplasm of cervix (procedure) [code = [id number]] Future Scheduled 2022-01-16 BREAST CANCER [facility] Test 12:09:25 SCREENING [code = BREAST CANCER SCREENING] Future Scheduled 2022-01-16 COLONOSCOPY SCREENING [facility] Test 12:09:25 [code = COLONOSCOPY SCREENING] Future Scheduled 2022-01-16 HEPATITIS B VACCINES [facility] Test 12:09:25 (1 of 3 - Risk 3-dose series) [code = HEPATITIS B VACCINES (1 of 3 - Risk 3-dose series)] Future Scheduled 2022-01-16 COVID-19 VACCINE (3 - [facility] Test 12:09:25 Booster for Pfizer series) [code = COVID-19 VACCINE (3 - Booster for Pfizer series)] Future Scheduled 2022-01-16 65+ PNEUMOCOCCAL [facility] Test 12:09:25 VACCINE (4 - PPSV23 or PCV20) [code = 65+ PNEUMOCOCCAL VACCINE (4 - PPSV23 or PCV20)] Future Scheduled 2022-01-16 INFLUENZA VACCINE Method [facility] Test 12:09:25 [code = INFLUENZA VACCINE] Future Scheduled 2022-01-14 SHINGLES VACCINES (1 [facility] Test 04:11:46 of 2) [code = SHINGLES VACCINES (1 of 2)] Future Scheduled 2022-01-14 Screening for [facility] Test 04:11:46 malignant neoplasm of cervix (procedure) [code = [id number]] Future Scheduled 2022-01-14 BREAST CANCER [facility] Test 04:11:46 SCREENING [code = BREAST CANCER SCREENING] Future Scheduled 2022-01-14 COLONOSCOPY SCREENING [facility] Test 04:11:46 [code = COLONOSCOPY SCREENING] Future Scheduled 2022-01-14 HEPATITIS B VACCINES [facility] Test 04:11:46 (1 of 3 - Risk 3-dose series) [code = HEPATITIS B VACCINES (1 of 3 - Risk 3-dose series)] Future Scheduled 2022-01-14 COVID-19 VACCINE (3 - [facility] Test 04:11:46 Booster for Pfizer series) [code = COVID-19 VACCINE (3 - Booster for Pfizer series)] Future Scheduled 2022-01-14 65+ PNEUMOCOCCAL [facility] Test 04:11:46 VACCINE (4 - PPSV23 or PCV20) [code = 65+ PNEUMOCOCCAL VACCINE (4 - PPSV23 or PCV20)] Future Scheduled 2022-01-14 INFLUENZA VACCINE Method [facility] Test 04:11:46 [code = INFLUENZA VACCINE] Future Scheduled 2021-08-26 Screening for [facility] Test 13:02:23 malignant neoplasm of cervix (procedure) [code = [id number]] Future Scheduled 2021-08-26 BREAST CANCER [facility] Test 13:02:23 SCREENING [code = BREAST CANCER SCREENING] Future Scheduled 2021-08-26 COLONOSCOPY SCREENING [facility] Test 13:02:23 [code = COLONOSCOPY SCREENING] Future Scheduled 2021-08-26 Screening for [facility] Test 13:02:23 malignant neoplasm of lung (procedure) [code = 623074128] Future Scheduled 2021-08-26 SHINGLES VACCINES (#1) M [...] Facility Department ID 2022-02-18 Outpatient CHW W [id number] [place] 14:30:[address] [place] [address] 2021-07-14 Outpatient SADIKOVIC, [facility] [id number] [place] 09:33:51 [facility] 2021-06-02 Outpatient HEMATPOUR, [facility] [id number] [place] 13:58:59 [facility] 2021-04-28 Outpatient HEMATPOUR, [facility] [id number] [place] 11:21:[facility] 2021-03-20 Emergency [facility] [id number] Univers 16:07:40 [facility] 2020-12-12 Outpatient HEMATPOUR, [facility] [id number] [place] 08:16:46 [facility] 2020-10-31 Outpatient HEMATPOUR, [facility] [id number] [place] 09:44:50 [facility] 2020-09-30 Outpatient HEMATPOUR, [facility] [id number] [place] 13:16:03 [facility] 2022-05-20 2022-05-20 Telephone [facility], [facility] 1.2.840.114 [id number] Univers 00:00:00 00:00:00 [facility] 350.1.13.10 i [facility] [id number] [address] [place] 2022-05-10 2022-05-10 Emergency X BYRON [facility] ERT [id number] Univers 10:30:00 16:31:00 HOME itcharlie [facility] 2022-05-10 2022-05-10 Emergency Byron, TRAUMA 1.2.840.114 [id number] Univers 10:30:00 16:31:00 [facility] 350.1.13.10 [place] [id number] [facility] 014 [place] 2022-05-10 2022-05-10 Telephone [facility] 1.2.840.114 [id number] Univers 00:00:00 00:00:00 [facility] 350.1.13.10 i ty [place] [id number] [address] 2022-05-08 2022-05-08 Emergency [facility] [id number] Univers 16:18:00 18:42:00 THERESA barbosa [facility] 2022-05-08 2022-05-08 [facility] 1.2.840.114 [id number] Univers 16:18:00 18:42:00 Theresa BULLOCK 350.1.13.10 ity of [place].2.[place] [id number] [address] 2022-05-07 2022-05-07 Telephone [facility] 1.2.840.114 [id number] Univers 00:00:00 00:00:00 [facility] 350.1.13.10 i ty [place] [id number] [address] 2022-05-06 2022-05-06 Emergency [facility] [id number] Univers 14:13:00 18:19:00 ANETTE familia [facility] 2022-05-06 2022-05-06 [facility] 1.2.162.840 [id number] Univers 14:13:00 18:19:00 Anette BULLOCK 350.1.13.10 ity of [place] 4.2.7.2.686 [place] [id number] [place] 685374 [place] 2022-05-06 2022-05-06 Telephone JOSÉ ANTONIO Cardenas 1.2.840.114 [id number] Univers 00:00:00 00:00:00 [facility] 350.1.13.10 i ty [place] [id number] [address] 2022-04-22 2022-04-22 Emergency X [facility] ERT [id number] Univers 13:55:00 17:00:00 PAULETTE ity of [facility] 2022-04-22 2022-04-22 Emergency [facility] 1.2.015.060 [id number] Univers 13:55:00 17:00:00 Paulette Christian [place] 350.1.13.10 i ty of [place] 4.2.7.2.686 [facility] [id number] [address] 2022-04-07 2022-04-07 Outpatient R [facility], [facility] [id number] Univers 20:40:00 20:40:00 ATTENDING ity of [facility] 2022-04-07 2022-04-07 Telephone Beltran, 1.2.840.1 [id number] Univers 00:00:00 00:00:00 Robbi R 04475.1.1 i ty of 3.104.2.7 [place] .3.403159 Medica l .8 [place] 2022-03-05 2022-03-05 Systems Security Analyst Santiago Cardenas 1.2.840.1 [id number] Univers 13:45:00 14:00:[address] [facility] 90170.1.1 ity of 3.104.2.7 [place] .3.542487 Medica l .8 Branch 2022-03-05 2022-03-05 Office JOSÉ ANTONIO Cardenas 1.2.762.977 [id number] Univers 13:00:00 13:30:00 Visit [facility] 350.1.13.10 i ty [place] [id number] [address] 2022-03-05 2022-03-05 Outpatient R [facility] [id number] Univers 13:00:00 13:00:00 [facility] 2022-02-26 2022-02-26 Outpatient R [facility] [id number] Univers 08:30:00 08:30:00 [facility] 2022-02-26 2022-02-26 Outpatient R [facility] [id number] Univers 08:30:00 08:30:00 [facility] 2022-02-17 2022-02-17 Transition Stevo, 1.2.840.9 [id number] Univers 00:00:00 00:00:00 of Care Isaias Arredondo 31705.1.1 it y of 3.104.2.7 [place] .3.330406 Medica l .8 [place] 2022-02-10 2022-02-16 Inpatient X [facility] [id number] Univers 22:59:00 19:27:00 TOMY [facility] 2022-02-10 2022-02-16 [facility] Reilly Means 1.2.840.1 [id number] Univers 22:59:00 19:27:00 Encounter Ofe Shields 50369.1.1 ity of [place] 3.[place].2.7 [place] .3.343362 Medica l .8 [place] 2022-02-11 2022-02-11 Telephone [facility], 1.2.840.2 [id number] Univers 00:00:00 00:00:00 Santiago 63560.1.1 ity of 3.104.2.7 [place] .3.171931 Medica l .8 [place] 2022-02-10 2022-02-10 Travel 1.2.840.1 1.2.485.671 [id number] Univers 00:00:00 00:00:00 20999.1.1 350.1.13.10 ity of 3.104.2.7 4.2.7.3.698 [place] .3.996050 084.8 Medica l .8 [place] 2022-01-30 2022-01-30 Telephone [place], 1.2.840.5 [id number] Univers 00:00:00 00:00:00 Santiago 77752.1.1 ity of 3.104.2.7 [place] .3.818659 Medica l .8 Branch 2022-01-06 2022-01-06 Orders Doctor FERMIN 1.2.840.114 [id number] Univers 00:00:00 00:00:00 Only Unassigned, JACKELINE 350.1.13.10 ity of [place] [facility] 4.2.7.2.686 Yomi as [id number] [facility] 009 Branch 2021-12-25 2021-12-25 Orders Doctor FERMIN 1.2.840.114 [id number] Univers 00:00:00 00:00:00 Only Unassigned, JACKELINE 350.1.13.10 ity of [place] [facility] 4.2.7.2.686 Yomi as [id number] [facility] 009 [place] 2021-12-12 2021-12-13 Emergency X Bill COLES [facility] ERT [id number] Univers 23:53:00 01:52:00 ity of [facility] 2021-12-12 2021-12-13 Emergency Bill Coles [facility] 1.2.840.114 [id number] Univers 23:53:00 01:52:00 Kiersten KOBE 350.1.13.10 i ty of [place] 4.2.7.2.686 [place] [phone] [facility] 084 Branch 2021-11-20 2021-11-[address] [facility] 1.2.840.114 [id number] Univers 09:45:00 10:00:00 Visit [facility] 350.1.13.10 ity of CL[place] 4[place] [id number] [facility] 316 Branch 2021-11-20 2021-11-20 Office [facility], [facility] 1.2.161.911 [id number] Univers 08:30:00 09:00:00 Visit [facility] 350.1.13.10 i ty of [place] 4[place] [id number] [facility] 089 Branch 2021-11-20 2021-11-20 Outpatient R EAST, [facility] [id number] Univers 08:30:00 08:30:00 SANTIAGO charlie [facility] 2021-11-20 2021-11-20 Outpatient R EAST, [facility] [id number] Univers 08:30:00 08:30:00 SANTIAGO y [facility] 2021-11-20 2021-11-20 Outpatient R EAST, [facility] [id number] Univers 08:30:00 08:30:00 SANTIAGO charlie [facility] 2021-11-20 2021-11-20 Outpatient R EAST, [facility] [id number] Univers 08:30:00 08:30:00 [facility] 2021-10-24 2021-10-24 Emergency X [facility] ERT [id number] Univers 16:27:00 22:26:00 [facility] 2021-10-24 2021-10-24 [facility] [id number] Univers 16:27:00 22:26:00 [facility] 2021-10-[facility] 2021-10-24 Emergency Reilly Means [facility] 1.2.840. 114 [id number] Univers 16:27:00 22:26:00 ZainabKrishna parrajose Christian [facility] 350.1.13.10 ity [facility] 4.2.7.2.686 [facility] [id number] [address] 2021-10-23 2021-10-24 Emergency [facility] [id number] Univers 20:22:00 02:57:00 [facility] 2021-10-23 2021-10-24 Emergency [facility] 1.2.508.114 [id number] Univers 20:22:00 02:57:00 Charity [facility] 350.1.13.10 ity [facility] 4.2.7.2.686 [facility] [id number] [address] 2021-09-07 2021-09-07 Outpatient R SELF, [facility] [id number] Univers 08:00:00 08:00:00 GADIEL barbosa o f [facility] 2021-09-07 2021-09-07 Outpatient R SELF, [facility] [id number] Univers 08:00:00 08:00:00 GADIEL maciely o f [facility] 2021-08-21 2021-08-21 Outpatient R [facility] [id number] Univers 10:45:00 10:45:00 SANTIAGO charlie [facility] 2021-08-21 2021-08-21 Systems Security Analyst Santiago Cardenas 1.2.840.1 [id number] Univers 10:45:00 10:45:[address] [facility] 30825.1.1 ity of 3.104.2.7 [place] .3.762007 Medica l .8 [place] 2021-08-21 2021-08-21 Office [facility], 1.2.840.9 [id number] Univers 08:30:00 09:00:00 Visit Santiago 39078.1.1 ity of 3.104.2.7 [place] .3.272066 Medica l .8 [place] 2021-08-21 2021-08-21 Office [facility] 1.2.641.636 [id number] Univers 08:30:00 09:00:00 Visit Santiago [facility] 350.1.13.10 i ty of CL[place] 4.[place] [id number] [facility] porfirio 089 [place] 2021-08-21 2021-08-21 Outpatient R [facility] [id number] Univers 08:30:00 08:30:00 SANTIAGO charlie [facility] 2021-08-21 2021-08-21 Travel 1.2.840.1 1.2.516.539 [id number] Univers 00:00:00 00:00:00 27920.1.1 350.1.13.10 ity of 3.104.2.7 4.2.7.3.698 [place] .3.536058 084.8 Medica l .8 [place] 2021-08-14 2021-08-14 Telephone [place], 1.2.840.9 [id number] Univers 00:00:00 00:00:00 Santiago 25460.1.1 ity of 3.104.2.7 [place] .3.315590 Medica l .8 Branch 2021-08-13 2021-08-13 Telephone [place], 1.2.840.6 [id number] Univers 00:00:00 00:00:00 Santiago 51629.1.1 ity of 3.104.2.7 [place] .3.082852 Medica l .8 Branch 2021-08-11 2021-08-11 Outpatient [facility] [id number] Univers 08:00:00 08:00:00 [facility] 2021-08-05 2021-08-05 [facility] [id number] [facility] 05:24:00 05:24:00 Mike 31 [facility] 2021-07-20 2021-07-20 Outpatient [facility] [id number] Univers 10:00:00 10:00:00 [facility] 2021-07-14 2021-07-14 Office KIMBERLEY Lira 6400 1.2.840.114 [id number] [place] 08:45:00 09:34:[address] 350.1.13.58 Health 9.2.7.2.686 [id number] 1 2021-07-09 2021-07-09 Telephone [facility], UTP 6400 1.2.840.114 [id number] [place] 00:00:00 00:00:[address] 350.1.13.58 Health 9.2.7.2.686 [id number] 1 2021-07-09 2021-07-09 Telephone [facility], [facility] 6400 1.2.840.114 [id number] [place] 00:00:00 00:00:[address] 350.1.13.58 Health 9.2.7.2.686 [id number] 1 2021-07-03 2021-07-03 Outpatient R EAST, [facility] [id number] Univers 08:00:00 08:00:00 SANTIAGO ity [facility] 2021-06-17 2021-06-17 Inpatient WINTER Leal INTE.02 [id number] [facility] 10:56:00 14:36:00 Mike 47 [facility] 2021-06-15 2021-06-15 Outpatient R SELF, [facility] [id number] Univers 10:15:00 11:07:21 GADIEL vogel [facility] 2021-06-15 2021-06-15 Outpatient R SELF, [facility] [id number] Univers 10:15:00 10:15:00 GADIEL barbosa o [facility] 2021-06-15 2021-06-15 Outpatient R SELF, [facility] [id number] Univers 10:15:00 10:15:00 GADIEL vogel [facility] 2021-06-15 2021-06-15 Orders Doctor 1.2.840.7 [id number] Univers 00:00:00 00:00:00 Only Unassigned, 04830.1.1 ity of [place] 3.104.2.7 [place] .3.423821 Medica l .8 [place] 2021-06-15 2021-06-15 Travel 1.2.840.1 1.2.754.385 [id number] Univers 00:00:00 00:00:00 27254.1.1 350.1.13.10 ity of 3.104.2.7 4.2.7.3.698 [place] .3.312603 084.8 Medica l .8 Branch 2021-06-11 2021-06-11 Refill [place], [facility] 1.2.541.911 [id number] Univers 00:00:00 00:00:00 [facility] 350.1.13.10 i ty of [place] 4[place] [id number] [facility] 089 [place] 2021-06-11 2021-06-11 Refill [place], 1.2.840.6 [id number] Univers 00:00:00 00:00:00 Santiago 11917.1.1 ity of 3.104.2.7 [place] .3.405350 Medica l .8 [place] 2021-06-05 2021-06-05 Outpatient R RONALD, [facility] [id number] Univers 09:00:00 09:00:00 SANTIAGO barbosa of [facility] 2021-06-02 2021-06-02 Telephone [place], [facility] 1.2.840.114 [id number] Univers 00:00:00 00:00:00 Santiago [facility] 350.1.13.10 i ty of [facility] 4.2.7.2.686 [place] [id number] [facility] 089 [place] 2021-06-02 2021-06-02 Telephone [place], 1.2.840.5 [id number] Univers 00:00:00 00:00:00 Santiago 79673.1.1 ity of 3.104.2.7 [place] .3.377301 Medica l .8 [place] 2021-05-29 2021-05-29 Telephone [place], 1.2.840.5 [id number] Univers 00:00:00 00:00:00 Santiago 96531.1.1 ity of 3.104.2.7 [place] .3.586643 Medica l .8 [place] 2021-05-29 2021-05-29 Telephone [place], 1.2.840.9 [id number] [id number] Univers 00:00:00 00:00:00 Santiago 79895.1.1 ity of 3.104.2.7 [place] .3.557323 Medica l .8 [place] 2021-05-25 2021-05-25 Outpatient R RODO, [facility] [id number] Univers 08:00:00 08:00:00 GADIEL rodas [facility] 2021-04-29 2021-04-29 Outpatient R LALA, [facility] [id number] Univers 08:00:00 08:00:00 NIKOLAI barbosa of [facility] 2021-04-28 2021-04-28 Telephone [facility], UTP 6400 1.2.840.114 [id number] [place] 00:00:00 00:00:[address] 350.1.13.58 Health 9.2.7.2.686 [id number] 1 2021-04-28 2021-04-28 Telephone Jailyn, 1.2.840.2 [id number] Methodi 00:00:00 00:00:[address] 3.430.2.7 Hospit a .3.902061 l .8 2021-03-31 2021-03-31 Orders Jillariel, 1.2.840.1 [id number] 21 [id number] Methodi 00:00:00 00:00:00 Only Sarai CorbinChelsie 25123.1.1 979 s t 3.430.2.7 Hospit a .3.536331 l .8 2021-03-30 2021-03-30 Outpatient R RODO [facility] [id number] Univers 08:45:00 08:45:00 GADIEL rodas [facility] 2021-03-24 2021-03-24 Telephone Jailyn, 1.2.840.3 [id number] Methodi 00:00:00 00:00:[address] 3.430.2.7 Hospit a .3.209956 l .8 2021-02-13 2021-02-13 Telephone Ronald, 1.2.840.4 [id number] [facility] 00:00:00 00:00:00 [place] 24346.1.1 [facility] 3.104.2.7 [facility].515954 Medica l [address] 2021-01-28 2021-01-28 [facility] [id number] Univers 08:45:00 09:37:00 NIKOLAI barbosa [facility] 2021-01-28 2021-01-28 Travel 1.2.840.1 1.2.288.966 [id number] [facility] 00:00:00 00:00:00 58663.1.1 350.1.13.10 ity of 3.104.2.7 4.2.7.3.698 [place] .3.151815 084.8 Medica l .8 Branch 2021-01-19 2021-01-19 Telephone Prabhu, 1.2.840.1 [id number] Methodi 00:00:00 00:00:[address] 3.430.2.7 Hospit a .3.560878 l .8 2021-01-04 2021-01-04 Letter Shelia, 1.2.840.9 [id number] Univers 00:00:00 00:00:00 (Out) Dagoberto H 15784.1.1 ity of 3.104.2.7 [place] .3.273015 Medica l .8 Branch 2021-01-04 2021-01-04 Dmitry Bass, 1.2.840.4 [id number] 696 Univers 00:00:00 00:00:00 (Out) Dagoberto H 53364.1.1 ity of 3.104.2.7 [place] .3.965984 Medica l .8 Branch 2021-01-03 2021-01-03 Dmitry Bass, 1.2.840.6 [id number] 790 Univers 00:00:00 00:00:00 (Out) Dagoberto H 84584.1.1 ity of 3.104.2.7 [place] .3.127034 Medica l .8 Branch 2021-01-03 2021-01-03 Dmitry Bass, 1.2.840.7 [id number] 790 Univers 00:00:00 00:00:00 (Out) [place]oberto H 45920.1.1 ity of 3.104.2.7 [place] .3.551696 Medica l .8 Branch 2021-01-02 2021-01-02 Outpatient R [facility] [id number] Univers 13:40:00 13:40:00 ity of [facility] 2021-01-02 2021-01-02 Laboratory [place] Fr[place] 1.2.840.2 [id number] Univers 12:14:13 12:57:34 Only Lab, [place] [address].1.1 ity of 3.104.2.7 [place] .3.999485 Medica l .8 [place] 2021-01-02 2021-01-02 Laboratory [place] 1.2.840.0 [id number] Univers 12:14:13 12:57:34 Only Lab, [facility] [place] [address].1.1 ity of 3.104.2.7 [place] .3.228798 Medica l .8 Branch 2021-01-02 2021-01-02 Travel 1.2.840.1 1.2.606.647 3503 2306 Univers 00:00:00 00:00:00 42623.1.1 350.1.13.10 ity of 3.104.2.7 4[place]2.7.3.698 [place] .3.715780 084.8 Medica l .8 [place] 2021-01-02 2021-01-02 Letter Doctor 1.2.840.5 [id number] Univers 00:00:00 00:00:00 (Out) Unassigned, 58826.1.1 ity of [place] 3.104.2.7 [place] .3.488469 Medica l .8 [place] 2021-01-02 2021-01-02 Letter Doctor 1.2.840.8 [id number] 946 Univers 00:00:00 00:00:00 (Out) Unassigned, 27756.1.1 ity of [place] 3.104.2.7 [place] .3.274065 Medica l .8 Branch 2021-01-02 2021-01-02 Travel 1.2.840.1 1.2.761.327 6013 2306 Univers 00:00:00 00:00:00 89589.1.1 350.1.13.10 ity of 3.104.2.7 4[place].3.698 [place] .3.558227 084.8 Medica l .8 Branch 2021-01-02 2021-01-02 Letter Doctor 1.2.840.0 [id number] 22868 948 Univers 00:00:00 00:00:00 (Out) Unassigned, 46633.1.1 ity of [place] 3.104.2.7 [place] .3.740830 Medica l .8 [place] 2021-01-02 2021-01-02 Letter Doctor 1.2.840.7 [id number] 67227 946 Univers 00:00:00 00:00:00 (Out) Unassigned, 29960.1.1 ity of [place] 3.104.2.7 [place] .3.214541 Medica l .8 [place] 2020-12-22 2020-12-22 Telephone Beltran, 1.2.840.7 [id number] 862 53425 Univers 00:00:00 00:00:00 Roshunda R 23339.1.1 i ty of 3.104.2.7 [place] .3.777062 Medica l .8 [place] 2020-12-22 2020-12-22 Telephone Beltran, 1.2.840.5 [id number] 862 46749 Univers 00:00:00 00:00:00 Roshunda R 62472.1.1 i ty of 3.104.2.7 [place] .3.082389 Medica l .8 [place] 2020-12-12 2020-12-12 Office Hematpour, UTP 6400 1.2.840.114 12 [id number] [place] 07:42:02 08:18:[address] 350.1.13.58 Health 9.2.7.2.686 [id number] 1 2020-12-12 2020-12-12 Office Hematpour, UTP 6400 1.2.840.114 12 [id number] 07:42:02 08:18:[address] 350.1.13.58 9.2.7.2.686 [id number] 1 2020-12-09 2020-12-09 Telephone Meisenbach, 1.2.840.1 [id number] Methodi 00:00:00 00:00:00 Sarai Lieberman 26266.1.1 316 s t 3.430.2.7 Hospit a .3.498369 l .8 2020-12-08 2020-12-08 [facility], 1.2.840.1 [id number] 2100 175703 Methodi 12:35:54 23:59:00 Encounter Ray [address]8485.1.[address] 3.430.2.7 Hospit a .3.189333 l .8 2020-12-08 2020-12-08 [facility], 1.2.840.1 [id number] 63411 71084 Methodi 17:25:00 17:30:[address] 3.430.2.7 Hospit a .3.547336 l .8 2020-12-08 2020-12-08 [facility], 1.2.840.1 [id number] 38256 65501 Methodi 10:30:00 11:39:56 Visit Ray [address]13.1.[address] 3.430.2.7 Hospit a .3.413496 l .8 2020-12-08 2020-12-08 Travel 1.2.840.1 1.2.389.586 3733 688314 Methodi 00:00:00 00:00:[address] 3.430.2.7 0.2.7.3.698 spita .3.616250 084.8 l .8 2020-12-02 2020-12-02 Systems Security Analyst Santiago Cardenas 1.2.840.1 [id number] [facility] 10:20:06 10:36:[address] [facility] 81202.1.1 ity of 3.104.2.7 [place] .3.258914 Medica l .8 [place] 2020-12-02 2020-12-02 Systems Security Analyst Santiago Cardenas 1.2.840.1 [id number] 316 [id number] [facility] 10:20:06 10:36:[address] [facility] 23977.1.1 ity of 3.104.2.7 [place] .3.516714 Medica l .8 [place] 2020-12-02 2020-12-[address] [facility] 1.2.840.114 8 [id number] 10:20:06 10:36:19 Visit [facility] 350.1.13.10 [facility] 4.2.7.2.686 [id number] [facility] 2020-12-02 2020-12-02 Office Ronald, 1.2.840.6 [id number] 61582 528 Univers 08:31:37 09:01:37 Visit Santiago 92476.1.1 ity of 3.104.2.7 [place] .3.725639 Medica l .8 [place] 2020-12-02 2020-12-02 Outpatient [facility] [id number] Univers 09:00:00 09:00:00 SANTIAGO ity of [facility] 2020-11-25 2020-11-25 Office Devin 1.2.840.4 [id number] 91998 865 Univers 11:06:30 11:58:14 Visit Robbi Hairston 48180.1.1 i ty of 3.104.2.7 [place] .3.731742 Medica l .8 [place] 2020-11-25 2020-11-25 Office Devin 1.2.840.8 [id number] 34666 865 Univers 11:06:30 11:58:14 Visit Amarilisjolie Hairston 97025.1.1 i ty of 3.104.2.7 [place] .3.947412 Medica l .8 [place] 2020-11-25 2020-11-25 [facility] 1.2.840.114 [id number] 65 11:06:30 11:58:14 Visit Devinaleshia Hairston GENERAL SUPERVISOR 350.1.13.10 REGIONAL 4.2.7.2.686 MATERNAL [phone] & CHILD [address] [place] [address] 2020-11-25 2020-11-25 Outpatient R [facility] [id number] Univers 11:00:00 11:00:00 ity [facility] 2020-11-25 2020-11-25 Telephone Shelby Beltran.2.840.1 [id number] 855 36032 Univers 00:00:00 00:00:00 Robbi R 07652.1.1 i ty of 3.104.2.7 [place] .3.829856 Medica l .8 Branch 2020-11-25 2020-11-25 Refill East, 1.2.840.0 [id number] 07612 592 Univers 00:00:00 00:00:00 Santiago 21129.1.1 ity of 3.104.2.7 [place] .3.491263 Medica l .8 Branch 2020-11-25 2020-11-25 Travel 1.2.840.1 1.2.981.674 2563 0247 Univers 00:00:00 00:00:00 17665.1.1 350.1.13.10 ity of 3.104.2.7 4.2.7.3.698 [place] .3.297357 084.8 Medica l .8 [place] 2020-11-25 2020-11-25 Orders Doctor 1.2.840.4 [id number] 99500 064 Univers 00:00:00 00:00:00 Only Unassigned, 40874.1.1 ity of [place] 3.104.2.7 [place] .3.997739 Medica l .8 [place] 2020-11-25 2020-11-25 Telephone Beltran, 1.2.840.4 [id number] 855 20327 Univers 00:00:00 00:00:00 Robbi Hairston 50909.1.1 i ty of 3.104.2.7 [place] .3.628386 Medica l .8 [place] 2020-11-25 2020-11-25 Refill [facility], 1.2.840.5 [id number] 23498 592 Univers 00:00:00 00:00:00 Santiago 47180.1.1 ity of 3.104.2.7 [place] .3.981580 Medica l .8 Branch 2020-11-25 2020-11-25 Travel 1.2.840.1 1.2.697.003 4830 0247 Univers 00:00:00 00:00:00 81991.1.1 350.1.13.10 ity of 3.104.2.7 4.2.7.3.698 [place] .3.928237 084.8 Medica l .8 Branch 2020-11-25 2020-11-25 Orders Doctor 1.2.840.7 [id number] 82967 064 Univers 00:00:00 00:00:00 Only Unassigned, 95996.1.1 ity of [place] 3.104.2.7 [place] .3.955336 Medica l .8 Branch 2020-11-25 2020-11-25 [facility] 1.2.177.253 4919 4592 00:00:00 00:00:00 [facility] 350.1.13.10 [facility] 4.2.7.2.686 [id number] 089 2020-11-25 2020-11-25 [facility] 1.2.134.895 2460 0821 00:00:00 00:00:00 Robbi Hairston GENERAL SUPERVISOR 350.1.13.10 [facility] 4.2.7.2.686 MATERNAL [phone] & CHILD [address] [place] [address] 2020-11-14 2020-11-14 Abstract Clark 1.2.840.1 [id number] 58935 77524 Methodi 00:00:00 00:00:[address] 3.430.2.7 Hospit a .3.475546 l .8 2020-11-14 2020-11-14 Telephone Clark 1.2.840.1 [id number] 2100 222694 Methodi 00:00:00 00:00:[address] 3.430.2.7 Hospit a .3.870394 l .8 2020-11-12 2020-11-12 Outpatient [facility] [id number] 323 Univers 08:30:00 08:30:00 SANTIAGO familia of [facility] 2020-11-07 2020-11-07 Telephone Agustina Ortiz 6400 1.2.840.11 4 [id number] [place] 00:00:00 00:00:[address] 350.1.13.58 Health 9.2.7.2.686 062.9998258 1 2020-11-07 2020-11-07 Telephone Diana UTP 6400 1.2.840.114 124 512683 00:00:00 00:00:[address] 350.1.13.58 9.2.7.2.686 251.0309473 1 2020-10-31 2020-10-31 Office Hematpour UTP 6400 1.2.840.114 12 [id number] [place] 07:54:00 09:45:[address] 350.1.13.58 Health 9.2.7.2.686 225.9363673 1 2020-10-30 2020-10-30 Abstract Rody Maguire UTP 6400 1.2.840.1 14 [id number] [place] 00:00:00 00:00:[address] 350.1.13.58 Health 9.2.7.2.686 617.9284315 1 2020-10-29 2020-10-29 Refill East, 1.2.840.5 [id number] 05311 400 Univers 00:00:00 00:00:00 Santiago 60645.1.1 ity of 3.104.2.7 [place] .3.357883 Medica l .8 [place] 2020-10-29 2020-10-29 Refill East, 1.2.840.0 [id number] 72522 400 Univers 00:00:00 00:00:00 Santiago 19655.1.1 ity of 3.104.2.7 [place] .3.803733 Medica l .8 [place] 2020-10-27 2020-10-27 Telephone Jailyn 1.2.840.0 [id number] 21 [id number] Method 00:00:00 00:00:[address] 3.430.2.7 Hospit a .3.708148 l .8 2020-10-24 2020-10-24 Telephone Clark, 1.2.840.1 [id number] 2100 334176 Methodi 00:00:00 00:00:[address] 3.430.2.7 Hospit a .3.729234 l .8 2020-10-22 2020-10-22 Outpatient R SELF, [facility] [id number] Univers 13:00:00 13:00:00 GADIEL vogel [facility] 2020-10-22 2020-10-22 Travel 1.2.840.1 1.2.038.610 4354 3839 Univers 00:00:00 00:00:00 77068.1.1 350.1.13.10 ity of 3.104.2.7 4.[place].7.3.698 [place] .3.356197 084.8 Medica l .8 [place] 2020-10-22 2020-10-22 Travel 1.2.840.1 1.2.762.701 7879 3839 Univers 00:00:00 00:00:00 15961.1.1 350.1.13.10 ity of 3.104.2.7 4.[place].7.3.698 [place] .3.582211 084.8 Medica l .8 [place] 2020-10-13 2020-10-13 Outpatient R SELF, [facility] [id number] Univers 08:45:00 08:45:00 GADIEL macielcharlie vogel [facility] 2020-10-06 2020-10-12 Telemedici Jailyn, 1.2.840.1 [id number] 21 [id number] Methodi 15:30:00 00:08:46 ne Ray 61881.1.[address] 3.430.2.7 Hospit a .3.830623 l .8 2020-09-30 2020-09-30 Telephone Jailyn, 1.2.840.8 [id number] 21 [id number] Methodi 00:00:00 00:00:[address] 3.430.2.7 Hospit a .3.944962 l .8 2020-09-212020-09-21 Travel 1.2.840.1 1.2.212.727 0186 225134 Methodi 00:00:00 00:00:[address] 3.430.2.7 0.2.7.3.698 Ho spita .3.250619 084.8 l .8 2020-09-06 2020-09-06 [facility] 1.2.840.1 [id number] 21000 65909 Methodi 17:42:30 23:59:[address] 3.430.2.7 Hospit a .3.064998 l .8 2020-09-06 2020-09-06 [facility], 1.2.840.1 [id number] 2100 888992 Methodi 16:50:00 17:41:00 Encounter Ray [address]382.1.[address] 3.430.2.7 Hospit a .3.216717 l .8 2020-09-05 2020-09-05 [facility], 1.2.840.1 [id number] 2099 590752 Methodi 09:17:00 19:45:00 Encounter Ray [address].1.[address] 3.430.2.7 Hospit a .3.370861 l .8 2020-09-05 2020-09-05 Surgery [facility], 1.2.840.1 [id number] 77044 54498 Methodi 11:30:00 13:15:[address] 3.430.2.7 Hospit a .3.879994 l .8 2020-09-05 2020-09-05 Anesthesia [facility], 1.2.840.1 [id number] 317 [id number] Methodi 11:27:00 12:20:00 Event Johnathanthi 85840.1.1 243 s t V. 3.430.2.7 Hospit a .3.044255 l .8 2020-09-05 2020-09-05 Travel 1.2.840.1 1.2.270.637 5154 454985 Methodi 00:00:00 00:00:[address] 3.430.2.7 0.2.7.3.698 spita .3.107164 084.8 l .8 2020-09-04 2020-09-04 Telephone Meisenbach, 1.2.840.1 [id number] Methodi 00:00:00 00:00:00 Sarai Lieberman 05476.1.1 762 s t 3.430.2.7 Hospit a .3.636515 l .8 2020-09-02 2020-09-02 Telephone Meisenbach, 1.2.840.6 [id number] Methodi 00:00:00 00:00:00 Sarai Lieberman 87271.1.1 344 s t 3.430.2.7 Hospit a .3.029171 l .8 2020-08-29 2020-08-30 [id number] [facility] 10:20:00 14:10:00 Outpatient r [place] 00 l [facility] 2020-08-29 2020-08-30 Outpatient HEMATPOUR, [facility] CAR 7500 [facility] 05:20:00 09:10:00 BEVERLY 2020-08-06 2020-08-06 Office East, 1.2.840.8 [id number] 416 Univers 08:03:23 09:17:49 Visit Santiago 33126.1.1 ity 3.104.2.7 [facility].011656 Medica l .8 Branch 2020-08-06 2020-08-06 Outpatient [facility] [id number] Univers 08:30:00 08:30:00 SANTIAGO barbosa of [facility] 2020-07-14 2020-07-14 [facility] [id number] Univers 09:30:00 09:30:00 GADIEL barbosa o f [facility] 2020-07-14 2020-07-14 Travel 1.2.840.1 1.2.706.548 0950 2575 Univers 00:00:00 00:00:00 99666.1.1 350.1.13.10 ity of 3.104.2.7 4[place]7.3.698 [place] .3.230735 084.8 Medica l .8 [place] 2020-07-14 2020-07-14 Orders Doctor 1.2.840.2 [id number] 309 Univers 00:00:00 00:00:00 Only Unassigned, 02088.1.1 ity of [place] 3.104.2.7 [place] .3.727370 Medica l .8 [place] 2020-06-16 2020-06-16 Outpatient R SELF, [facility] [id number] Univers 08:00:00 08:00:00 GADIEL barbosa o f [facility] 2020-06-06 2020-06-06 Telephone East, 1.2.840.8 [id number] 809 50335 Univers 00:00:00 00:00:00 Santiago 57521.1.1 ity of 3.104.2.7 [place] .3.160810 Medica l .8 [place] 2020-06-04 2020-06-04 Systems Security Analyst Santiago Cardenas 1.2.840.1 [id number] Univers 09:31:58 09:40:[address] [facility] 70947.1.1 ity of 3.104.2.7 [place] .3.992638 Medica l .8 [place] 2020-06-04 2020-06-04 [facility] 1.2.236.507 0409 9729 Univers 08:13:41 09:28:25 Visit Santiago [facility] 350.1.13.10 i ty of [place] 4[place]2.[place].2.[place] 288.3405464 Medi porfirio 089 [place] 2020-06-04 2020-06-04 Outpatient R EAST, [facility] [id number] Univers 08:30:00 08:30:00 SANTIAGO barbosa of [facility] 2020-06-04 2020-06-04 Orders Doctor 1.2.840.3 [id number] 079 Univers 00:00:00 00:00:00 Only Unassigned, 13448.1.1 ity of [place] 3.104.2.7 [place] .3.468723 Medica l .8 Branch 2020-05-19 2020-05-19 Telephone East, 1.2.840.6 [id number] 804 74986 Univers 00:00:00 00:00:00 Santiago 13038.1.1 ity of 3.104.2.7 [place] .3.624107 Medica l .8 Branch 2020-04-24 2020-04-24 Telephone East, 1.2.840.7 [id number] 799 10573 Univers 00:00:00 00:00:00 Santiago 92184.1.1 ity of 3.104.2.7 [place] .3.407014 Medica l .8 [place] 2020-04-14 2020-04-14 Outpatient R EAST, [facility] [id number] Univers 09:00:00 09:00:00 SANTIAGO ity of [facility] 2020-04-14 2020-04-14 Telephone East, 1.2.840.3 [id number] 797 09757 Univers 00:00:00 00:00:00 Santiago 34297.1.1 ity of 3.104.2.7 [place] .3.188521 Medica l .8 [place] 2020-03-31 2020-03-31 Outpatient R EAST, [facility] [id number] Univers 08:30:00 08:30:00 SANTIAGO ity of [facility] 2020-03-03 2020-03-03 Outpatient R SELF, [facility] [id number] Univers 08:00:00 08:00:00 GADIEL barbosa o f [facility] 2020-03-03 2020-03-03 Outpatient R SELF, [facility] [id number] Univers 08:00:00 08:00:00 GADIEL maciely o f [facility] 2020-03-03 2020-03-03 Travel 1.2.840.1 1.2.516.684 6934 5480 Univers 00:00:00 00:00:00 80204.1.1 350.1.13.10 ity of 3.104.2.7 4.[place].7.3.698 [place] .3.037615 084.8 Medica l .8 [place] 2020-02-06 2020-02-06 Telephone East, 1.2.840.5 [id number] 781 38223 Univers 00:00:00 00:00:00 Santiago 31743.1.1 ity of 3.104.2.7 [place] .3.855891 Medica l .8 Branch 2020-01-26 2020-01-26 Emergency Caridad, 1.2.840.0 [id number] 779 76488 Univers 10:03:00 13:05:00 Cynise 42155.1.1 ity of 3.104.2.7 [place] .3.056766 Medica l .8 Branch 2020-01-26 2020-01-26 Travel 1.2.840.1 1.2.403.808 8925 0120 Univers 00:00:00 00:00:00 44531.1.1 350.1.13.10 ity of 3.104.2.7 4.2.7.3.698 [place] .3.298009 084.8 Medica l .8 [place] 2020-01-25 2020-01-25 Outpatient [facility] [id number] Univers 08:30:00 08:30:00 SANTIAGO ity of [facility] 2020-01-25 2020-01-25 Telemedici East, 1.2.840.7 [id number] Univers 07:36:49 08:06:49 ne Visit Santiago 22104.1.1 ity of 3.104.2.7 [place] .3.468591 Medica l .8 [place] 2020-01-16 2020-01-16 Outpatient R EAST, [facility] [id number] Univers 08:00:00 08:00:00 SANTIAGO ity of [facility] 2020-01-16 2020-01-16 Telephone East, 1.2.840.2 [id number] Univers 00:00:00 00:00:00 Santiago 04826.1.1 ity of 3.104.2.7 [place] .3.627202 Medica l .8 [place] 2020-01-14 2020-01-14 Outpatient R SELF, [facility] [id number] Univers 08:00:00 08:00:00 GADIEL rodas [facility] 2019-12-31 2019-12-31 Outpatient R SELF, [facility] [id number] Univers 08:45:00 08:45:00 GADIEL rodas [facility] 2019-10-17 2019-10-17 Outpatient R [facility], [facility] [id number] Univers 08:30:00 08:30:00 SANTIAGO barbosa [facility] 2019-10-12 2019-10-12 Outpatient R EAST, [facility] [id number] Univers 13:00:00 13:00:00 SANTIAGO barbosa [facility] 2019-10-12 2019-10-12 Telemedici East, 1.2.840.6 [id number] Univers 07:38:30 08:08:30 ne Visit Santiago 70195.1.1 ity of 3.104.2.7 [place] .3.123210 Medica l .8 [place] 2019-10-08 2019-10-08 Outpatient R SELF, [facility] [id number] Univers 10:15:00 10:15:00 GADIEL rodas [facility] 2019-10-03 2019-10-03 Case Assman, 1.2.840.3 [id number] [id number] Univers 00:00:00 00:00:00 Management Michael Corbin 42196.1.1 i ty of 3.104.2.7 [place] .3.647690 Medica l .8 [place] 2019-09-27 2019-09-27 Telephone East, 1.2.840.6 [id number] 755 [id number] Univers 00:00:00 00:00:00 Santiago 89164.1.1 ity of 3.104.2.7 [place] .3.167008 Medica l .8 [place] 2019-09-04 2019-09-04 Refill East, 1.2.840.9 [id number] 70869 497 Univers 00:00:00 00:00:00 Santiago 23555.1.1 ity of 3.104.2.7 [place] .3.352349 Medica l .8 [place] 2019-07-24 2019-07-24 Outpatient R [facility], [facility] [id number] Univers 08:30:00 08:30:00 SANTIAGO barbosa [facility] 2019-07-17 2019-07-17 [facility] [id number] Univers 10:00:00 10:00:00 SANTIAGO barbosa [facility] 2019-06-15 2019-06-15 Telephone East, 1.2.840.5 [id number] [id number] Univers 00:00:00 00:00:00 Santiago 94432.1.1 ity of 3.104.2.7 [place] .3.051644 Medica l .8 [place] 2019-06-13 2019-06-13 Telephone Team, [facility] 1.2.840.5 [id number] Univers 00:00:00 00:00:00 Health 14280.1.1 ity of [place]104.2.7 [place] .3.176913 Medica l .8 [place] 2019-05-10 2019-05-10 Refill Ronald, 1.2.840.0 [id number] 022 Univers 00:00:00 00:00:00 Santiago 21953.1.1 ity of 3.104.2.7 [place] .3.749011 Medica l .8 [place] 2019-05-09 2019-05-09 Refill Ronald, 1.2.840.5 [id number] Univers 00:00:00 00:00:00 Santiago 49563.1.1 ity of 3.104.2.7 [place] .3.641702 Medica l .8 [place] 2019-04-30 2019-04-30 Outpatient R RODO [facility] [id number] Univers 10:15:00 10:33:05 GADIEL barbosa o f [facility] 2019-04-18 2019-04-18 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 16329.1.1 ity of 3.104.2.7 [place] .3.264374 Medica l .8 [place] 2019-04-18 2019-04-18 Outpatient [facility] [id number] Univers 10:00:00 10:44:31 SANTIAGO ity [facility] 2019-04-18 2019-04-18 Office East, 1.2.840.6 [id number] 005 Univers 08:27:44 09:53:27 Visit Santiago 25213.1.1 ity of 3.104.2.7 [place] .3.801137 Medica l .8 [place] 2019-04-18 2019-04-18 Orders Doctor 1.2.840.9 [id number] [id number] Univers 00:00:00 00:00:00 Only Unassigned, 50366.1.1 ity of [place] 3.104.2.7 [place] .3.131501 Medica l .8 [place] 2019-04-11 2019-04-11 Refill East, 1.2.840.8 [id number] 033 Univers 00:00:00 00:00:00 Santiago 92198.1.1 ity of 3.104.2.7 [place] .3.716893 Medica l .8 [place] 2019-04-09 2019-04-09 Refill East, 1.2.840.1 [id number] 546 Univers 00:00:00 00:00:00 Santiago 82918.1.1 ity of 3.104.2.7 [place] .3.347781 Medica l .8 [place] 2019-04-03 2019-04-03 Telephone Team, [facility] 1.2.840.5 [id number] Univers 00:00:00 00:00:00 Health 64213.1.1 ity of [place] 3.104.2.7 [place] .3.338732 Medica l .8 [place] 2019-03-27 2019-03-27 Telephone Self, 1.2.840.2 [id number] 723 [id number] Univers 00:00:00 00:00:00 Gadiel 56662.1.1 ity of 3.104.2.7 [place] .3.979444 Medica l .8 [place] 2019-01-17 2019-01-17 Office East, 1.2.840.8 [id number] Univers 07:37:21 10:32:51 Visit Santiago 47741.1.1 ity of 3.104.2.7 [place] .3.503819 Medica l .8 Branch 2019-01-04 2019-01-12 Office Eveline Hansen 1.2.840.9 [id number] Univers 11:19:32 11:08:05 Visit Mariela 56018.1.1 ity of 3.104.2.7 [place] .3.649258 Medica l .8 [place] 2019-01-10 2019-01-10 Telephone Stanislav, 1.2.840.0 [id number] 709 [id number] Univers 00:00:00 00:00:00 Eladio Inman 35795.1.1 ity of 3.104.2.7 [place] .3.754284 Medica l .8 [place] 2018-12-18 2018-12-18 Office Geraldine, 1.2.840.0 [id number] [facility] 08:48:45 09:13:43 Visit Leyda 73260.1.1 it y of 3.104.2.7 [place] .3.270156 Medica l .8 [place] 2018-10-30 2018-10-30 Telephone East, 1.2.840.2 [id number] Univers 00:00:00 00:00:00 Santiago 66866.1.1 ity of 3.104.2.7 [place] .3.519885 Medica l .8 [place] 2018-10-23 2018-10-23 Orders Doctor 1.2.840.4 [id number] Univers 00:00:00 00:00:00 Only Unassigned, 99146.1.1 ity of [place] 3.104.2.7 [place] .3.364572 Medica l .8 [place] 2018-10-23 2018-10-23 Nurse Selvin, 1.2.840.4 [id number] Univers 00:00:00 00:00:00 Triage Stefanie 55409.1.1 ity of 3.104.2.7 [place] .3.299750 Medica l .8 [place] 2018-10-23 2018-10-23 Telephone Self, 1.2.840.0 [id number] Univers 00:00:00 00:00:00 Gadiel 61493.1.1 ity of 3.104.2.7 [place] .3.433846 Med[facility] l .8 Branch 2018-10-20 2018-10-20 Telephone Self, 1.2.840.9 [id number] Univers 00:00:00 00:00:00 Gadiel 03512.1.1 ity of 3.104.2.7 [place] .3.113437 Med[facility] l .8 Branch Results Test Description Test Time Test Comments Results Result Comments Source COMP. METABOLIC PANEL (66447) 2022-05-06 22:42:55 Test Item Value Reference Range Interpretation Comme nts NA (test code = 5395271653) 137 mmol/L 135-145 K (test code = 6152348944) 3.2 mmol/L 3.5-5.0 L CL (test code = 3427771774) 100 mmol/L 98-108 CO2 TOTAL (test code = 7266587800) 23 mmol/L 23-31 AGAP (test code = 0973930772) 2-16 BUN (test code = 3004690189) 41 mg/dL 7-23 H GLUCOSE (test code = 7464195422) 98 mg/dL 70-110 CREATININE (test code = 1.55 mg/dL 0.50-1.04 H 1491725826) TOTAL BILI (test code = 0.8 mg/dL 0.1-1.9 2338452194) CALCIUM (test code = 9362370855) 8.3 mg/dL 8.6-10.6 L T PROTEIN (test code = 2167109966) 6.9 g/dL 6.3-8.2 ALBUMIN (test code = 3332218599) 3.9 g/dL 3.5-5.0 ALK PHOS (test code = 2161118974) 89 U/L 34-122 ALTv (test code = 1742-6) 101 U/L 5-35 H AST(SGOT) (test code = 1865077701) 203 U/L 13-40 H eGFR (test code = 5880266672) mL/min/1.73m2 KYLE (test code = KYLE) Association [...] tests). Lab Interpretation (test code = Abnormal 26488-9) [facility] WITH [id number] 22:33:52 Test Item Value Reference Range Interpretation Comments WBC (test code = See_Comment L [Automated 5904-2) message] The sy stem which generated this result transmitted reference range : 4.30 - 11.10 10*3/?L. The reference range was not used to interpret this result as normal/abnormal . RBC (test code = See_Comment [Automated 679-8) message] The sy stem which generated this [...] RDW-SD (test code = 46.3 fL 39.0-49.9 38070-3) RDW-CV (test code = 13.5 % 12.0-15.5 788-0) PLT (test code = See_Comment L [Automated 777-3) message] The sy stem which generated this result transmitted reference range : 166 - 358 10*3/ ?L. The reference r abbey was not used to interpret this result as normal/abnormal . MPV (test code = 9.5 fL 9.5-12.9 77458-5) NRBC/100 WBC (test See_Comment [Automat ed code = 2941227480) message] The system which generated this result transmitted reference range : 0.0 - 10.0 /100 WBCs. The refer ence range was not u sed to interpret th is result as normal/abnormal . NRBC x10^3 (test code See_Comment [Auto mated = 3965780509) message] The s ystem which generated this result transmitted reference range : 10*3/?L. The reference range was not used to interpret this result as normal/abnormal . GRAN MAT (NEUT) % 58.3 % (test code = 770-8) IMM GRAN % (test code 0.80 % = 4005801049) LYMPH % (test code = 28.1 % 736-9) MONO % (test code = 12.0 % 5905-5) EOS % (test code = 0.5 % 713-8) BASO % (test code = 0.3 % 706-2) GRAN MAT x10^3(ANC) 2.29 10*3/uL 1.88-7.09 (test code = 7204035408) IMM GRAN x10^3 (test 0.03 10*3/uL 0.00-0.06 code = 7566570251) LYMPH x10^3 (test code 1.10 10*3/uL 1.32-3.29 L = 731-0) MONO x10^3 (test code 0.47 10*3/uL 0.33-0.92 = 742-7) EOS x10^3 (test code = 0.03-0.39 L 711-2) BASO x10^3 (test code 0.01-0.07 = 704-7) Lab Interpretation Abnormal (test code = 05611-8) [facility] METABOLIC PANEL (NA, K, CL, CO2, GLUCOSE, BUN, CREATININE, CA)2022-04-22 21:43:42 Test Item Value Reference Range Interpretation Comments NA (test code = 142 mmol/L 135-145 0792913455) K (test code = 3.5 mmol/L 3.5-5.0 3894666628) CL (test code = 106 mmol/L 98-108 1842757216) CO2 TOTAL (test code = 26 mmol/L 23-31 9059947172) AGAP (test code = 2-16 2762951442) BUN (test code = 29 mg/dL 7-23 H 4539698396) GLUCOSE (test code = 84 mg/dL 70-110 9083537212) CREATININE (test code = 1.16 mg/dL 0.50-1.04 H 5496210601) CALCIUM (test code = 8.2 mg/dL 8.6-10.6 L 5979299456) eGFR (test code = mL/min/1.73m2 9112410286) KYLE (test code = KYLE) Association of [...] tests). Lab Interpretation Abnormal (test code = 89712-7) [facility] WITH [id number] 21:33:01 Test Item Value Reference Range Interpretation [...] (test code = 50.7 fL 39.0-49.9 H 09518-7) RDW-CV (test code = 14.6 % 12.0-15.5 788-0) PLT (test code = See_Comment L [Automated 777-3) message] The sy stem which generated this result transmitted reference range : 166 - 358 10*3/ ?L. The reference r abbey was not used to interpret this result as normal/abnormal . MPV (test code = 8.8 fL 9.5-12.9 L 84325-0) NRBC/100 WBC (test See_Comment [Automat ed code = 2054947429) message] The system which generated this result transmitted reference range : 0.0 - 10.0 /100 WBCs. The refer ence range was not u sed to interpret th is result as normal/abnormal . NRBC x10^3 (test code See_Comment [Auto mated = 5956914479) message] The s ystem which generated this result transmitted reference range : 10*3/?L. The reference range was not used to interpret this result as normal/abnormal . GRAN MAT (NEUT) % 70.9 % (test code = 770-8) IMM GRAN % (test code 0.50 % = 4125645697) LYMPH % (test code = 17.4 % 736-9) MONO % (test code = 9.0 % 5905-5) EOS % (test code = 1.7 % 713-8) BASO % (test code = 0.5 % 706-2) GRAN MAT x10^3(ANC) 4.60 10*3/uL 1.88-7.09 (test code = 0435647620) IMM GRAN x10^3 (test 0.03 10*3/uL 0.00-0.06 code = 7073209409) LYMPH x10^3 (test code 1.13 10*3/uL 1.32-3.29 L = 731-0) MONO x10^3 (test code 0.58 10*3/uL 0.33-0.92 = 742-7) EOS x10^3 (test code = 0.11 10*3/uL 0.03-0.39 711-2) BASO x10^3 (test code 0.03 10*3/uL 0.01-0.07 = 704-7) Lab Interpretation Abnormal (test code = 85778-3) [facility] [id number] 06:01:07 Test Item Value Reference Range Interpretation Comments Blood Culture-Aerobic No organisms No growth Previo us (test code = 66292-5) isolated prelim inary verified result was Culture [...] Culture-Anaerobic isolated preliminar y (test code = 88502-7) verifi ed result was Culture In Progress [...] CDT Lab Interpretation Normal (test code = 22780-6) [facility] CULTURE [id number] 06:01:07 Test Item Value Reference Range Interpretation Comments Blood Culture-Aerobic No organisms No growth Previo us (test code = 89164-4) isolated prelim inary verified result was Culture [...] Culture-Anaerobic isolated preliminar y (test code = 24618-6) verifi ed result was Culture In Progress [...] CDT Lab Interpretation Normal (test code = 33264-4) [facility] CULTURE [id number] 06:01:07 Test Item Value Reference Range Interpretation Comments Blood Culture-Aerobic No organisms No growth Previo us (test code = 38184-0) isolated prelim inary verified result was Culture [...] Culture-Anaerobic isolated preliminar y (test code = 51655-6) verifi ed result was Culture In Progress [...] CDT Lab Interpretation Normal (test code = 95040-7) [facility] [id number] 10:49:10 Test Item Value Reference Range Interpretation Comments NT-proBNP (test code 2660 pg/mL See_Comment H [Autom ated = 6809411677) message] The system which generated this result transmitted reference range : <=125. The reference range was not used to interpret this result as normal/abnormal . KYLE (test code = KYLE) Biotin has been reported to cause a negative bias, interpret results relative to patient's use of biotin. Lab Interpretation Abnormal (test code = 72671-7) [facility] [id number] 10:49:10 Test Item Value Reference Range Interpretation Comments NT-proBNP (test code 2660 pg/mL See_Comment H [Autom ated = 0872956775) message] The system which generated this result transmitted reference range : <=125. The reference range was not used to interpret this result as normal/abnormal . KYLE (test code = KYLE) Biotin has been reported to cause a negative bias, interpret results relative to patient's use of biotin. Lab Interpretation Abnormal (test code = 39391-2) [facility] METABOLIC PANEL (NA, K, CL, CO2, GLUCOSE, BUN, CREATININE, CA)2022-02-15 10:44:07 Test Item Value Reference Range Interpretation Comments NA (test code = 134 mmol/L 135-145 L 9909815834) K (test code = 3.2 mmol/L 3.5-5 L 6966149229) CL (test code = 98 mmol/L 98-108 7326835501) CO2 TOTAL (test code = 27 mmol/L 23-31 9446344893) AGAP (test code = 2-16 1928683461) BUN (test code = 19 mg/dL 7-23 2123179373) GLUCOSE (test code = 102 mg/dL 70-110 4317572406) CREATININE (test code = 0.95 mg/dL 0.5-1.04 9352152721) CALCIUM (test code = 8.5 mg/dL 8.6-10.6 L 5869067208) eGFR (test code = mL/min/1.73m2 4772955157) KYLE (test code = KYLE) Association of [...] tests). Lab Interpretation Abnormal (test code = 01354-0) [facility] 10:44:07 Test Item Value Reference Range Interpretation Comments MAGNESIUM (test code = 6018648663) 1.8 mg/dL 1.7-2.4 Lab Interpretation (test code = Normal 81234-0[facility] Test Item Value Reference Range Interpretation Comments MAGNESIUM (test code = 6874274155) 1.8 mg/dL 1.7-2.4 Lab Interpretation (test code = Normal 26467-5) [facility] METABOLIC PANEL (NA, K, CL, CO2, GLUCOSE, BUN, CREATININE, CA)2022-02-15 10:44:07 Test Item Value Reference Range Interpretation Comments NA (test code = 134 mmol/L 135-145 L 9128840877) K (test code = 3.2 mmol/L 3.5-5.0 L 3151198740) CL (test code = 98 mmol/L 98-108 3241922041) CO2 TOTAL (test code = 27 mmol/L 23-31 8070609539) AGAP (test code = 2-16 3626218395) BUN (test code = 19 mg/dL 7-23 0892862238) GLUCOSE (test code = 102 mg/dL 70-110 4442615649) CREATININE (test code = 0.95 mg/dL 0.50-1.04 5290359628) CALCIUM (test code = 8.5 mg/dL 8.6-10.6 L 8610391768) eGFR (test code = mL/min/1.73m2 6227535148) KYLE (test code = KYLE) Association of [...] tests). Lab Interpretation Abnormal (test code = 76830-7) [facility] WITH [id number] 10:12:06 Test Item Value Reference Range Interpretation [...] RDW-SD (test code = 47.8 fL 39-49.9 45840-1) RDW-CV (test code = 15.2 % 12-15.5 788-0) PLT (test code = See_Comment L [Automated 777-3) message] The sy stem which generated this result transmitted reference range : 166 - 358 10*3/ ?L. The reference r abbey was not used to interpret this result as normal/abnormal . MPV (test code = 8.9 fL 9.5-12.9 L 42265-9) NRBC/100 WBC (test See_Comment [Automat ed code = 1554559542) message] The system which generated this result transmitted reference range : 0.0 - 10.0 /100 WBCs. The refer ence range was not u sed to interpret th is result as normal/abnormal . NRBC x10^3 (test code See_Comment [Auto mated = 7898916723) message] The s ystem which generated this result transmitted reference range : 10*3/?L. The reference range was not used to interpret this result as normal/abnormal . GRAN MAT (NEUT) % 65.9 % (test code = 770-8) IMM GRAN % (test code 0.30 % = 4273209762) LYMPH % (test code = 21.0 % 736-9) MONO % (test code = 10.1 % 5905-5) EOS % (test code = 2.4 % 713-8) BASO % (test code = 0.3 % 706-2) GRAN MAT x10^3(ANC) 2.49 10*3/uL 1.88-7.09 (test code = 5213253516) IMM GRAN x10^3 (test 0-0.06 code = 3948772240) LYMPH x10^3 (test code 0.79 10*3/uL 1.32-3.29 L = 731-0) MONO x10^3 (test code 0.38 10*3/uL 0.33-0.92 = 742-7) EOS x10^3 (test code = 0.09 10*3/uL 0.03-0.39 711-2) BASO x10^3 (test code 0.01-0.07 = 704-7) Lab Interpretation Abnormal (test code = 92129-4) [facility] WITH [id number] 10:12:06 Test Item Value Reference Range Interpretation [...] RDW-SD (test code = 47.8 fL 39.0-49.9 99659-0) RDW-CV (test code = 15.2 % 12.0-15.5 788-0) PLT (test code = See_Comment L [Automated 777-3) message] The sy stem which generated this result transmitted reference range : 166 - 358 10*3/ ?L. The reference r abbey was not used to interpret this result as normal/abnormal . MPV (test code = 8.9 fL 9.5-12.9 L 41391-2) NRBC/100 WBC (test See_Comment [Automat ed code = 6462640724) message] The system which generated this result transmitted reference range : 0.0 - 10.0 /100 WBCs. The refer ence range was not u sed to interpret th is result as normal/abnormal . NRBC x10^3 (test code See_Comment [Auto mated = 4540258066) message] The s ystem which generated this result transmitted reference range : 10*3/?L. The reference range was not used to interpret this result as normal/abnormal . GRAN MAT (NEUT) % 65.9 % (test code = 770-8) IMM GRAN % (test code 0.30 % = 3893753474) LYMPH % (test code = 21.0 % 736-9) MONO % (test code = 10.1 % 5905-5) EOS % (test code = 2.4 % 713-8) BASO % (test code = 0.3 % 706-2) GRAN MAT x10^3(ANC) 2.49 10*3/uL 1.88-7.09 (test code = 9564769596) IMM GRAN x10^3 (test 0.00-0.06 code = 1015027561) LYMPH x10^3 (test code 0.79 10*3/uL 1.32-3.29 L = 731-0) MONO x10^3 (test code 0.38 10*3/uL 0.33-0.92 = 742-7) EOS x10^3 (test code = 0.09 10*3/uL 0.03-0.39 711-2) BASO x10^3 (test code 0.01-0.07 = 704-7) Lab Interpretation Abnormal (test code = 70278-6) [facility] WITH [id number] 11:18:28 Test Item Value Reference Range Interpretation [...] RDW-SD (test code = 49.5 fL 39-49.9 68123-9) RDW-CV (test code = 15.5 % 12-15.5 788-0) PLT (test code = See_Comment L [Automated 777-3) message] The sy stem which generated this result transmitted reference range : 166 - 358 10*3/ ?L. The reference r abbey was not used to interpret this result as normal/abnormal . MPV (test code = 11.4 fL 9.5-12.9 75648-7) IPF % (test code = 8.7 % 1.3-7.7 H Platelet count 2506394874) measured by fluorescence method. NRBC/100 WBC (test See_Comment [Automat ed code = 9533527657) message] The system which generated this result transmitted reference range : 0.0 - 10.0 /100 WBCs. The refer ence range was not u sed to interpret th is result as normal/abnormal . NRBC x10^3 (test code See_Comment [Auto mated = 4167430209) message] The s ystem which generated this result transmitted reference range : 10*3/?L. The reference range was not used to interpret this result as normal/abnormal . GRAN MAT (NEUT) % 62.0 % (test code = 770-8) IMM GRAN % (test code 0.80 % = 4363035832) LYMPH % (test code = 22.2 % 736-9) MONO % (test code = 9.6 % 5905-5) EOS % (test code = 5.1 % 713-8) BASO % (test code = 0.3 % 706-2) GRAN MAT x10^3(ANC) 2.21 10*3/uL 1.88-7.09 (test code = 6493705158) IMM GRAN x10^3 (test 0.03 10*3/uL 0-0.06 code = 5664274569) LYMPH x10^3 (test code 0.79 10*3/uL 1.32-3.29 L = 731-0) MONO x10^3 (test code 0.34 10*3/uL 0.33-0.92 = 742-7) EOS x10^3 (test code = 0.18 10*3/uL 0.03-0.39 711-2) BASO x10^3 (test code 0.01-0.07 = 704-7) POLYCHROMASIA (test 2+ See_Comment [Automa arpit code = 94011-2) message] The system which generated this result [...] . Lab Interpretation Abnormal (test code = 37612-8) [facility] METABOLIC PANEL (NA, K, CL, CO2, GLUCOSE, BUN, CREATININE, CA)2022-02-13 10:39:07 Test Item Value Reference Range Interpretation Comments NA (test code = 136 mmol/L 135-145 7866061053) K (test code = 4.1 mmol/L 3.5-5 3859485535) CL (test code = 102 mmol/L 98-108 3622976576) CO2 TOTAL (test code = 27 mmol/L 23-31 7277076965) AGAP (test code = 2-16 0422724837) BUN (test code = 22 mg/dL 7-23 3860240333) GLUCOSE (test code = 94 mg/dL 70-110 8709310508) CREATININE (test code = 0.94 mg/dL 0.5-1.04 7815762788) CALCIUM (test code = 8.1 mg/dL 8.6-10.6 L 0279297131) eGFR (test code = mL/min/1.73m2 1457446442) KYLE (test code = KYLE) Association of [...] tests). Lab Interpretation Abnormal (test code = 83527-1) [facility] 01:50:10 Test Item Value Reference Range Interpretation Comments Height (test code = in 8050764643) Weight (test code = lbs 5687296072) Systolic BP (test code mmHg = 8967765721) Diastolic BP (test code mmHg = 8191302162) Heart Rate (test code = bpm 7170455837) BSA (test code = 1.85 m2 1257754547) IVS (test code = 1.22 cm 5832264327) Interventricular Septum 1.22 cm Diastolic Thickness by 2D (test code = 3171037) LVIDD (test code = 5.00 cm 6829329226) Left Ventricular End 117.9 mL Diastolic Volume by Teichholz Method (test code = 8311955) LVPWD (test code = 1.22 cm 5639350483) PW (test code = 1.22 cm 0.6-1.8 4135768922) EF(Teich) (test code = 74.60 % 6387704909) LVIDS (test code = 2.80 cm 4109647028) Left Ventricular End 29.9 mL Systolic Volume by Teichholz Method (test code = 6662874) FS (test code = 44 % 8860444449) EF - 2D (test code = 74.60 % 02007984) LVOT diameter (test 2.16 cm code = 7214613201) LVOT area (test code = 3.70 cm2 6441597722) Ao root diam (test code 3.40 cm = 1555899798) Aortic root (test code 3.4 cm = 7585354676) Ao root annulus (test 3.4 cm code = 5863941137) LA size (test code = 3.4 cm 3634223971) TR Peak Spencer (test code 330.0 cm/s = 1062401638) Triscuspid Valve mmHg Regurgitation Peak Gradient (test code = 7187934950) PV REGURGITATION PEAK mmHg GRADIENT (test code = 2885211678) PI dec slope (test code 137.20 cm/s2 = 9499767858) LAV(MOD-sp4) (test code 102.90 mL = 2435046330) MV Peak E Spencer (test 84.1 cm/s code = 6967465617) MV Peak A Spencer (test 40.1 cm/s code = 3625848056) E/A ratio (test code = ratio 4690491189) MV valve area p 1/2 3.70 cm2 method (test code = 2480091157) MV dec slope (test code 413.00 cm/s2 = 2695619849) MV P1/2t max spencer (test 83.70 cm/s code = 2041829630) MV Prop V (test code = 41.80 cm/s 8109012221) Tapse (test code = 1.83 cm 4172379845) LVOT stroke volume 96.90 cm3 (test code = 2068237499) LVOT peak spencer (test 125.5 cm/s code = 5887283013) LVOT mn grad (test code mmHg = 6941400808) AV LVOT peak gradient mmHg (test code = 6977515042) LVOT peak VTI (test 26.4 cm code = 7956295915) LV V1 mean (test code = 78.10 cm/s 9370524115) Aortic valve mean 103.7 cm/s velocity (test code = 9374853602) Ao peak spencer (test code 165.6 cm/s = 7268330818) Ao VTI (test code = 37.2 cm 4875549603) AV area by cont VTI 2.6 cm2 (test code = 6365666088) AV area peak spencer (test 2.8 cm2 code = 0942075359) Ao max PG (test code = 11.00 mm[Hg] 1756249297) AV peak gradient (test mmHg code = 2329529554) AV valve area (test 2.60 cm2 code = 0672475866) AV mean gradient (test mmHg code = 3240980380) LA Volume Index (BP) 55.2 mL/m2 (test code = 8541993366) LA volume (BP) (test 102.1 mL code = 6592195949) LAV(MOD-sp2) (test code 86.10 mL = 1709613965) A2C EF (test code = 61.20 % 6124759285) EF(sp2-el) (test code = 61.60 % 7840145277) SV(MOD-sp2) (test code 47.10 mL = 4466126687) LV Diastolic Volume 70.7 mL (BP) (test code = 3224605496) A4C EF (test code = 53.00 % 7546312873) EF(MOD-bp) (test code = 56.70 % 9563979200) EF(sp4-el) (test code = 53.90 % 9836350669) LV Systolic Volume (BP) 30.6 mL (test code = 9710336000) SV(MOD-bp) (test code = 40.10 mL 9309250192) SV(MOD-sp4) (test code 32.40 mL = 5372890364) SV(sp4-el) (test code = 33.10 mL 2862916871) EF (test code = 1607715026) Left Ventricular Stroke 40.1 mL Volume by 2-D Biplane-MOD (test code = 6779540) LV Diastolic Volume 38.2 mL/m2 Index (BP) (test code = 8741853751) LV Systolic Volume 16.5 mL/m2 Index (BP) (test code = 6246960893) Radiology Study observation (narrative) (test code = 20004-4) KYLE (test code = KYLE) ?Left?Ventricle: Left [...] 1.00The left ventricular wall motion is normal. [facility] [id number] 05:45:01 Test Item Value Reference Interpretation Comments Range TROPONIN I (test See_Comment [Automated code = 3648525439) message] The system which generated this result [...] biotin. Lab Interpretation Normal (test code = 59288-8) [facility] [id number] 05:41:40 Test Item Value Reference Range Interpretation Comments NT-proBNP (test code 4250 pg/mL See_Comment H [Autom ated = 6179270885) message] The system which generated this result transmitted reference range : <=125. The reference range was not used to interpret this result as normal/abnormal . KYLE (test code = KYLE) Biotin has been reported to cause a negative bias, interpret results relative to patient's use of biotin. Lab Interpretation Abnormal (test code = 12904-6) [facility] [id number] 05:35:21 Test Item Value Reference Range Interpretation Comments APTT Patient (test See_Comment [Automat ed code = 3173-2) message] The system which generated this result transmitted reference range : 23 - 38 Seconds . The reference range was not used to interpr et this result as normal/abnormal . KYLE (test code = KYLE) The [facility] patient population mean normal value for aPTT is 30 seconds. Lab Interpretation Normal (test code = 86671-6) [facility] [id number] 05:35:21 Test Item Value Reference Range Interpretation Comments APTT Patient (test See_Comment [Automat ed code = 3173-2) message] The system which generated this result transmitted reference range : 23 - 38 Seconds . The reference range was not used to interpr et this result as normal/abnormal . YKLE (test code = KYLE) The [facility] patient population mean normal value for aPTT is 30 seconds. Lab Interpretation Normal (test code = 95971-8) [facility] / [id number] 05:33:21 Test Item Value Reference Range Interpretation Comments PROTIME PATIENT (test See_Comment [Auto mated message] code = 5964-2) The system [employer] generated this result transmitted ref erence range: 12.0 - 1 4.7 Seconds. The re ference range was not u sed to interpret this result as normal/abnor mal. INR (test code = 6301-6) Nor mal INR <1.1; Warfarin Therap eutic range 2.0 to 3. 0 or 2.5 to 3.5, dep ending upon the indica tions. Lab Interpretation (test Normal code = 77974-9) [facility]OLIC PAN[facility] (96989)2022-02-11 05:33:21 Test Item Value Reference Range Interpretation Comments NA (test code = 137 mmol/L 135-145 0204442364) K (test code = 4.3 mmol/L 3.5-5 9301868345) CL (test code = 103 mmol/L 98-108 2745064910) CO2 TOTAL (test code = 25 mmol/L 23-31 4875204948) AGAP (test code = 2-16 2466907021) BUN (test code = 19 mg/dL 7-23 2472799234) GLUCOSE (test code = 120 mg/dL 70-110 H 2644886404) CREATININE (test code = 1.15 mg/dL 0.5-1.04 H 5866988120) TOTAL BILI (test code = 0.9 mg/dL 0.1-1.8 1393120242) CALCIUM (test code = 8.9 mg/dL 8.6-10.6 3429531573) T PROTEIN (test code = 6.6 g/dL 6.3-8.2 7192396635) ALBUMIN (test code = 4.0 g/dL 3.5-5 4342271855) ALK PHOS (test code = 73 U/L 34-122 7377259431) ALTv (test code = 18 U/L 5-35 1742-6) AST(SGOT) (test code = 31 U/L 13-40 3383357966) eGFR (test code = mL/min/1.73m2 8877394050) KYLE (test code = KYLE) Association of [...] tests). Lab Interpretation Abnormal (test code = 95966-6) [facility]. METABOLIC PANEL (02704)2022-02-11 05:33:21 Test Item Value Reference Range Interpretation Comments NA (test code = 137 mmol/L 135-145 2140761140) K (test code = 4.3 mmol/L 3.5-5.0 0233726093) CL (test code = 103 mmol/L 98-108 8894601807) CO2 TOTAL (test code = 25 mmol/L 23-31 9419162661) AGAP (test code = 2-16 4301028389) BUN (test code = 19 mg/dL 7-23 8985187013) GLUCOSE (test code = 120 mg/dL 70-110 H 8851130198) CREATININE (test code = 1.15 mg/dL 0.50-1.04 H 3033033491) TOTAL BILI (test code = 0.9 mg/dL 0.1-1.4 5570748043) CALCIUM (test code = 8.9 mg/dL 8.6-10.6 0917820977) T PROTEIN (test code = 6.6 g/dL 6.3-8.2 9570747617) ALBUMIN (test code = 4.0 g/dL 3.5-5.0 9649227108) ALK PHOS (test code = 73 U/L 34-122 0201528978) ALTv (test code = 18 U/L 5-35 1742-6) AST(SGOT) (test code = 31 U/L 13-40 8344160189) eGFR (test code = mL/min/1.73m2 1607662312) KYLE (test code = KYLE) Association of [...] tests). Lab Interpretation Abnormal (test code = 35114-3) [facility] / [id number] 05:33:21 Test Item Value Reference Range Interpretation [...] tions. Lab Interpretation (test Normal code = 43148-3) [facility] WITH [id number] 05:14:37 Test Item Value Reference Range Interpretation Comments WBC (test code = See_Comment [Automated 5290-2) message] The sy stem which generated this result transmitted reference range : 4.30 - 11.10 10*3/?L. The reference range was not used to interpret this result as normal/abnormal . RBC (test code = See_Comment L [Automated 319-8) message] The sy stem which generated this [...] RDW-SD (test code = 47.9 fL 39-49.9 34344-9) RDW-CV (test code = 14.9 % 12-15.5 788-0) PLT (test code = See_Comment L [Automated 777-3) message] The sy stem which generated this result transmitted reference range : 166 - 358 10*3/ ?L. The reference r abbey was not used to interpret this result as normal/abnormal . MPV (test code = 9.1 fL 9.5-12.9 L 40166-5) NRBC/100 WBC (test See_Comment [Automat ed code = 0848896055) message] The system which generated this result transmitted reference range : 0.0 - 10.0 /100 WBCs. The refer ence range was not u sed to interpret th is result as normal/abnormal . NRBC x10^3 (test code See_Comment [Auto mated = 6040069257) message] The s ystem which generated this result transmitted reference range : 10*3/?L. The reference range was not used to interpret this result as normal/abnormal . GRAN MAT (NEUT) % 78.5 % (test code = 770-8) IMM GRAN % (test code 0.20 % = 9871751332) LYMPH % (test code = 11.6 % 736-9) MONO % (test code = 8.4 % 5905-5) EOS % (test code = 1.1 % 713-8) BASO % (test code = 0.2 % 706-2) GRAN MAT x10^3(ANC) 3.45 10*3/uL 1.88-7.09 (test code = 5224398557) IMM GRAN x10^3 (test 0-0.06 code = 7459253857) LYMPH x10^3 (test code 0.51 10*3/uL 1.32-3.29 L = 731-0) MONO x10^3 (test code 0.37 10*3/uL 0.33-0.92 = 742-7) EOS x10^3 (test code = 0.05 10*3/uL 0.03-0.39 711-2) BASO x10^3 (test code 0.01-0.07 = 704-7) Lab Interpretation Abnormal (test code = 10564-5) [facility] Coronavirus 2019 [id number] 18:08:00 Test Item Value Reference Range Interpretation [...] det ection of nucleic acids f rom qptQTON-RhD-5 v irus and diagnosis of SA RS-CoV-2 virusinfection. It is an Emergency Use Authorization ( EUA) testauthorized by the U.[place]. FDA. BASIC METABOLIC [id number] 09:37:00 Test Item Value Reference Range Interpretation [...] = 9.0 mg/dL 8.0-10.5 N CA) PROTHROMBIN [id number] 09:32:00 Test Item Value Reference Range Interpretation [...] (to prevent recurrent infar ct). 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 Acct: [id number] Dis Date: Status: ADM IN PHONE #: [phone] Exam Date: 06/17/2021 1320 FAX #: [phone] Reason: WATCHMAN EXAMS: CPT CODE: [id number] XR CHEST 1 V [id number] PROCEDURE INFORMATION: Exam: XR Chest Exam date [...] Chopra Technologist: RT Taylor(R) Trnscrd Date/Time/By: 06/17/2021 (2414) : By: Susanna Orig Print D/T: S: 06/17/2021 (9478) PAGE 1 Signed ReportCOVID 19 Asymptomatic IH [id number] 12:29:00 Test Item Value Reference Range Interpretation [...] high or waivedcomplexit y tests. BASIC METABOLIC [id number] 11:37:00 Test Item Value Reference Range Interpretation [...] code = 9.0 mg/dL 8.0-10.5 N CA) BDBDWPTUOG4597-15-71 11:37:00 Test Item Value Reference Range Interpretation Comments PREALBUMIN (test code = PREALB) 24.3 mg/dL 16.0-40.0 N PROTHROMBIN LRPU7931-17-14 11:03:00 Test Item Value Reference Range Interpretation [...] (to prevent recurrent infar ct). CBC W/AUTO BSLQ9862-35-33 10:59:00 Test Item Value Reference Range Interpretation [...] 0.0-0.1 N NRBC#) - XR CHEST 2 [id number] 00:00:00 [facility] 1955 Sex: F FAX: Carmenza Olivera DO [phone] [place]: St: PRE FAX: Mike Scales MD [phone] Name: LIO WATTS [facility] : 1955 Age/S: 66/F [address] [place] [address] Unit #: [id number] Loc: [place] [address] Phys: Mike Lund MD Acct: [id number] Dis Date: [place] [facility] [place] #: [phone] Exam Date: 06/16/2021 1120 FAX #: [phone] Reason: PREOP EXAMS: CPT CODE: [id number] XR CHEST 2 V 13901 PROCEDURE INFORMATION: Exam: XR Chest Exam date [...] MD Technologist: RT Andree(R) Trnscrd Date/Time/By: 06/16/2021 (5685) : By: [email or web address] Orig Print D/T: S: 06/16/2021 (4150) PAGE 1 Signed ReportGastrointestinal azyda0630-16-03 04:35:05 Test Item Value Reference Interpretation Comments [...] Rotavirus PCR (test Not Detected code = 3040205) Salmonella PCR (test Not Detected code = [...] PCR Not Detected (test code = 7124) [facility] dckukyg8507-35-34 19:30:47 Test Item Value Reference Range Interpretation Comments Case number (test [id number] code = 3112594) Surgical pathology See link below for PDF report (test code = Lab Report 2255) Result status (test This is Supplemental code = 0057625) Report for [id number] [facility]2021-04-09 16:31:00 Test Item Value Reference Range Interpretation Comments POC Activated Clotting Time (test code 153 s = POC Activated Clotting Time) [facility]KlgrdxeTGLZIURCME5294-14-16 16:31:00 Test Item Value Reference Range Interpretation Comments POC Activated Clotting Time (test code 153 s = POC Activated Clotting Time) [facility] DallasOicdsvmWLLYZECDEX7986-05-04 16:31:00 Test Item Value Reference Range Interpretation Comments POC Activated Clotting Time (test code 153 s = POC Activated Clotting Time) [facility] DallasOqbmkoiMHNNOHDOER9126-49-80 16:31:00 Test Item Value Reference Range Interpretation Comments POC Activated Clotting Time (test code 153 s = POC Activated Clotting Time) [facility] DallasIshbtekDWUUWGFOLR1492-20-55 16:31:00 Test Item Value Reference Range Interpretation Comments POC Activated Clotting Time (test code 153 s = POC Activated Clotting Time) [facility] DallasRmlinyvQFJLODSFTK6362-24-96 16:31:00 Test Item Value Reference Range Interpretation Comments POC Activated Clotting Time (test code 153 s = POC Activated Clotting Time) [facility] DallasYtbrwjgSKWUUNCGMP5496-35-89 16:31:00 Test Item Value Reference Range Interpretation Comments POC Activated Clotting Time (test code 153 s = POC Activated Clotting Time) [facility] DallasFbjhpldIQSITTMERB9681-51-94 14:37:00 Test Item Value Reference Range Interpretation Comments POC Activated Clotting Time (test code 454 s = POC Activated Clotting Time) [facility] DallasTvfofnhJRKJTIZJTW8185-72-16 14:37:00 Test Item Value Reference Range Interpretation Comments POC Activated Clotting Time (test code 454 s = POC Activated Clotting Time) [facility] DallasIfmqixaRCRJHRGFFQ4961-36-44 14:37:00 Test Item Value Reference Range Interpretation Comments POC Activated Clotting Time (test code 454 s = POC Activated Clotting Time) [facility] DallasWlosocyFNBBQCYEIG8104-62-69 14:37:00 Test Item Value Reference Range Interpretation Comments POC Activated Clotting Time (test code 454 s = POC Activated Clotting Time) [facility] DallasGzascbyAZHZGFZEJF9720-33-03 14:37:00 Test Item Value Reference Range Interpretation Comments POC Activated Clotting Time (test code 454 s = POC Activated Clotting Time) [facility] DallasWkabyerCFVGSUNHMB9834-12-66 14:37:00 Test Item Value Reference Range Interpretation Comments POC Activated Clotting Time (test code 454 s = POC Activated Clotting Time) [facility] DallasUkjhnwjOKVZBGMLZD8192-82-23 14:37:00 Test Item Value Reference Range Interpretation Comments POC Activated Clotting Time (test code 454 s = POC Activated Clotting Time) [facility] DallasSuzcdaiMLBZTVUGOS7470-21-72 14:13:00 Test Item Value Reference Range Interpretation Comments POC Activated Clotting Time (test code 354 s = POC Activated Clotting Time) [facility] DallasKpemrktEALMCEQQWO0785-65-16 14:13:00 Test Item Value Reference Range Interpretation Comments POC Activated Clotting Time (test code 354 s = POC Activated Clotting Time) [facility] DallasGbaaemvLOOSMACCSX3916-63-74 14:13:00 Test Item Value Reference Range Interpretation Comments POC Activated Clotting Time (test code 354 s = POC Activated Clotting Time) [facility] DallasBpsyylkUTEJCBKDBV1283-29-28 14:13:00 Test Item Value Reference Range Interpretation Comments POC Activated Clotting Time (test code 354 s = POC Activated Clotting Time) [facility] DallasAzvkbumSRMDXJKTJZ3300-02-23 14:13:00 Test Item Value Reference Range Interpretation Comments POC Activated Clotting Time (test code 354 s = POC Activated Clotting Time) [facility] DallasPhcsrxuNKGNSBZGQM7775-83-55 14:13:00 Test Item Value Reference Range Interpretation Comments POC Activated Clotting Time (test code 354 s = POC Activated Clotting Time) [facility] DallasBukagwnXLRCIVTRFO0195-32-15 14:13:00 Test Item Value Reference Range Interpretation Comments POC Activated Clotting Time (test code 354 s = POC Activated Clotting Time) [facility] CCBPNYX7701-05-57 10:37:00Negative (08/29/20 5:37 AM) [facility]2021-04-09 10:37:47502Yznydiun HermannCHEM PANEL 2020-08-29 10:37:0028[facility] HermannCHEM OXGYQ3290-69-98 10:37:001.01[facility] HermannCHEM HATHM2073-62-21 10:37:42687Rjrcifoo HermannCHEM JFFDV9639-67-38 10:37:003.8[facility] HermannCHEM GEVNO7048-88-20 10:37:14203Fvoljuzn HermannCHEM CYODE4393-72-17 10:37:0028[facility] HermannCHEM HTTWT9917-25-68 10:37:009.8 [facility] HermannCHEM NDTHE6220-57-63 10:37:0011.8[facility] HermannCHEM PANEL 2020-08-29 10:37:0059[facility] HermannCHEM CDWAL6249-87-19 10:37:002.9[facility] VpdokdpTFCZVNWOFS6684-00-77 10:37:006.8[facility] RxibsvfJWWQLPBPBS5602-46-90 10:37:004.47[facility] DfgvtxdWQKEEGXVFC2706-63-14 10:37:0010.6[facility] WOGXJGEDMG6990-75-12 10:37:0034.0[facility] GpjhvbrIJWDOUSIFF9737-40-62 10:37:00 76.1[facility] RvtounqDOSARNITQY4529-38-47 10:37:00 Test Item Value Reference Range Interpretation Comments MCH (test code = MCH) 23.8 pg 27.0-31.0 [facility] UykgnwpUAGTMDGODR4981-87-11 10:37:0031.3[facility] HermannHEMATOLOGY 2020-08-29 10:37:0018.2[facility] TtxxapqEIWVZRYOGN0492-56-40 10:37:47134Bzyiepco NexoyzzRHUXUISSZK0503-98-51 10:37:007.5[facility] XwduodsNYIWKOUCQP7488-38-23 10:37:00 Test Item Value Reference Range Interpretation Comments PT (test code = PT) 12.8 s 12.0-14.7 [facility] CphsgflTKTLCHNYPY0601-93-04 10:37:00 Test Item Value Reference Range Interpretation Comments INR (test code = INR) 0.97 1 0.85-1.17 [facility] KjcsbzmDOTKNGUJHW8447-95-93 10:37:00 Test Item Value Reference Range Interpretation Comments PTT (test code = PTT) 25.0 s 22.9-35.8 [facility] JvljsmpMAMLHDJTAM6230-27-38 10:37:0070.5[facility] HermannHEMATOLOGY 2020-08-29 10:37:0018.8[facility] RneqosxJMWYQNDBNU2689-55-95 10:37:009.5[facility] OxmzcaeXSBECMLIQU3115-63-70 10:37:000.9[facility] PxblxufHZFLGXSKPO6797-08-93 10:37:000.3[facility] UfirftvXEAQXCWATY8457-47-61 10:37:004.8[facility] KWKWHVJYXG4290-63-11 10:37:001.3[facility] TozeavhNGSQBQEBVT4114-08-62 10:37:000.6 [facility] PafzrhqHVDYYZTXGL8480-26-13 10:37:000.1[facility] HermannHEMATOLOGY 2020-08-29 10:37:001+ *ABN*(08/29/20 5:37 AM)[facility] IulsqvfPYBCYIKQYX5385-81-28 10:37:00Not Detected (08/29/20 5:37 AM)[facility] HermannBLOOD BANK RESULTS 2020-08-29 10:37:00Negative (08/29/20 5:37 AM)[facility] HermannCHEM LVPKL2224-64-64 10:37:28165Wehifrce HermannCHEM VANCY1399-04-20 10:37:0028[facility] HermannCHEM AWKTC0320-58-60 10:37:001.01[facility] HermannCHEM SCFAX3713-52-40 10:37:46203 [facility] HermannCHEM VYFUA2593-20-72 10:37:003.8[facility] HermannCHEM PANEL 2020-08-29 10:37:30333Ekdvecyk HermannCHEM TOEGH9745-33-56 10:37:0028[facility] HermannCHEM IOZUI5192-39-41 10:37:009.8[facility] HermannCHEM THRDT7546-98-85 10:37:0011.8[facility] HermannCHEM NRMHG6454-96-15 10:37:0059[facility] HermannCHEM CWINI3356-88-39 10:37:002.9[facility] CrjcbyoLIEZPYMTTS2358-67-80 10:37:006.8 [facility] LkijkznCKLWDCJHQT3781-09-06 10:37:004.47[facility] HermannHEMATOLOGY 2020-08-29 10:37:0010.6[facility] NbbqklrEFQGPOOWZN2797-44-28 10:37:0034.0[facility] NpirnaaFAHIAILYUW2731-77-88 10:37:0076.1[facility] AagaeczFHUMRPPUOB9408-18-68 10:37:00 Test Item Value Reference Range Interpretation Comments MCH (test code = MCH) 23.8 pg 27.0-31.0 [facility] JahmqooYZKPJMBBJS9081-74-08 10:37:0031.3[facility] HermannHEMATOLOGY 2020-08-29 10:37:0018.2[facility] WfedmexPMMGIIDQGV6973-65-29 10:37:10408Qfcbyyfc DkyjukdLHJQXSZXAD8421-99-65 10:37:007.5[facility] CqumajlPYNLYMKQKE0552-62-04 10:37:00 Test Item Value Reference Range Interpretation Comments PT (test code = PT) 12.8 s 12.0-14.7 [facility] BbufmqhWWMDMBDELO2445-06-13 10:37:00 Test Item Value Reference Range Interpretation Comments INR (test code = INR) 0.97 1 0.85-1.17 [facility] JpvnpmbDAFNBTPNVR6237-48-87 10:37:00 Test Item Value Reference Range Interpretation Comments PTT (test code = PTT) 25.0 s 22.9-35.8 [facility] UlhrsvgRDODXENZBN2445-91-32 10:37:0070.5[facility] HermannHEMATOLOGY 2020-08-29 10:37:0018.8[facility] VkiohyaINMFIYAHFZ1844-75-71 10:37:009.5[facility] TvhqqsxKHCXEYTNIS3841-68-75 10:37:000.9[facility] MzbbztnDIIWPFFCMG1859-07-04 10:37:000.3[facility] WlmeoorZRAKNBQNIN3118-00-63 10:37:004.8[facility] WBXSHXXBJV9631-15-25 10:37:001.3[facility] KzughveCNDBBJWIVQ0232-94-62 10:37:000.6 [facility] KrqqpfvICTRZVBVSU8593-69-70 10:37:000.1[facility] HermannHEMATOLOGY 2020-08-29 10:37:001+ *ABN*(08/29/20 5:37 AM)[facility] MhuygamWWUWMTYSHM4733-64-15 10:37:00Not Detected (08/29/20 5:37 AM)[facility] HermannBLOOD BANK RESULTS 2020-08-29 10:37:00Negative (08/29/20 5:37 AM)[facility] HermannCHEM AMJDA2812-61-22 10:37:79782Pbuimzym HermannCHEM BKBVB2176-59-42 10:37:0028[facility] HermannCHEM ZGALT8463-04-72 10:37:001.01[facility] HermannCHEM YTVWE7252-72-85 10:37:26703 [facility] HermannCHEM OUFNR2256-13-34 10:37:003.8[facility] HermannCHEM PANEL 2020-08-29 10:37:47791Yrczyjzj HermannCHEM JYYEN6594-86-36 10:37:0028[facility] HermannCHEM STAJM3905-21-48 10:37:009.8[facility] HermannCHEM BLYNL9318-17-08 10:37:0011.8[facility] HermannCHEM ZTGDO7722-18-16 10:37:0059[facility] HermannCHEM YHXMU8019-62-45 10:37:002.9[facility] DtbpnvgLOXGTVTOHI2471-75-53 10:37:006.8 [facility] WqcrrhaBSYBMUBHRH0660-54-32 10:37:004.47[facility] HermannHEMATOLOGY 2020-08-29 10:37:0010.6[facility] HifzxweBEIJXYGOCA1506-37-91 10:37:0034.0[facility] OfjipvmPRRQPWFJAG3413-47-04 10:37:0076.1[facility] PzqbuurCJPYIMPHZC8018-67-08 10:37:00 Test Item Value Reference Range Interpretation Comments MCH (test code = MCH) 23.8 pg 27.0-31.0 [facility] OqhthwzFARQYIXBPZ7311-58-15 10:37:0031.3[facility] HermannHEMATOLOGY 2020-08-29 10:37:0018.2[facility] VvvnsuoPDXCDYUDIU6568-94-81 10:37:77681Vkdfkxrt HnmgguvEYSYMEPYAG4906-87-08 10:37:007.5[facility] YoiactpXZIWOJSPXG2863-45-07 10:37:00 Test Item Value Reference Range Interpretation Comments PT (test code = PT) 12.8 s 12.0-14.7 [facility] IjvzqukLGQHGHTZMM6541-15-86 10:37:00 Test Item Value Reference Range Interpretation Comments INR (test code = INR) 0.97 1 0.85-1.17 [facility] AbmzjobOGSBSLOCYM4127-05-59 10:37:00 Test Item Value Reference Range Interpretation Comments PTT (test code = PTT) 25.0 s 22.9-35.8 [facility] KmidevhRDAGPTUIIO4936-01-38 10:37:0070.5[facility] HermannHEMATOLOGY 2020-08-29 10:37:0018.8[facility] HvakxhtHCVTMMIMXM3580-79-05 10:37:009.5[facility] CyvumrbVELECBUCSR1062-81-85 10:37:000.9[facility] ByyjeajHNYUYDIBJD5622-07-43 10:37:000.3[facility] AfktgkfECOTSCLDAD3487-24-08 10:37:004.8[facility] FAEZVOQYSG9344-74-57 10:37:001.3[facility] QofyrzeYHGUAHZZUY1904-50-62 10:37:000.6 [facility] QtktkqpTADBQEIRQJ5346-55-11 10:37:000.1[facility] HermannHEMATOLOGY 2020-08-29 10:37:001+ *ABN*(08/29/20 5:37 AM)[facility] RxcezvoMYOKOBEMQM3603-27-76 10:37:00Not Detected (08/29/20 5:37 AM)[facility] HermannBLOOD BANK RESULTS 2020-08-29 10:37:00Negative (08/29/20 5:37 AM)[facility] HermannCHEM DEVEW6381-75-62 10:37:66017Zpbvktfa HermannCHEM XDTVC6114-92-51 10:37:0028[facility] HermannCHEM WIVZM4542-55-74 10:37:001.01[facility] HermannCHEM RAQUR6026-76-18 10:37:27586 [facility] HermannCHEM BMNRU6215-82-45 10:37:003.8[facility] HermannCHEM PANEL 2020-08-29 10:37:51388Tzfcgiuf HermannCHEM GWXLS7876-22-83 10:37:0028[facility] HermannCHEM SRWLA8275-38-36 10:37:009.8[facility] HermannCHEM XCVEH6667-99-59 10:37:0011.8[facility] HermannCHEM OUUTR1750-45-59 10:37:0059[facility] HermannCHEM MNCHI6614-97-70 10:37:002.9[facility] UyosmdtUMBCRFMRJR1719-90-05 10:37:006.8 [facility] HsifxojIEEEBMTQBC2075-18-33 10:37:004.47[facility] HermannHEMATOLOGY 2020-08-29 10:37:0010.6[facility] ZbhkikkFYPOPSHZJN3910-10-70 10:37:0034.0[facility] YsyampfCQVUNBJJWU5034-47-26 10:37:0076.1[facility] NltazeaRTLLTMDNWP4079-85-16 10:37:00 Test Item Value Reference Range Interpretation Comments MCH (test code = MCH) 23.8 pg 27.0-31.0 [facility] YbzzvdeYKECWPDRMD4854-62-15 10:37:0031.3[facility] HermannHEMATOLOGY 2020-08-29 10:37:0018.2[facility] FmcblfrPQITNCFNIG6813-57-53 10:37:27536Oyhitoqd HnoizvbGGXDAUQSHQ5510-32-30 10:37:007.5[facility] JzbknvsGGMKYZZEBZ9860-69-83 10:37:00 Test Item Value Reference Range Interpretation Comments PT (test code = PT) 12.8 s 12.0-14.7 [facility] SnqkyctGUGAZLRPQR0200-18-85 10:37:00 Test Item Value Reference Range Interpretation Comments INR (test code = INR) 0.97 1 0.85-1.17 [facility] MuxerdaFJXVYUQLAL0939-38-51 10:37:00 Test Item Value Reference Range Interpretation Comments PTT (test code = PTT) 25.0 s 22.9-35.8 [facility] FoyhysbPXTLJIYUJL6190-36-23 10:37:0070.5[facility] HermannHEMATOLOGY 2020-08-29 10:37:0018.8[facility] SrycxzvQAAZKUSTSP8697-08-40 10:37:009.5[facility] XccqrvtFPCEZDGVNJ7684-85-42 10:37:000.9[facility] GnskxchXQIQAYWZWQ5300-24-93 10:37:000.3[facility] XpedgmpUHFTFIQCIG5167-51-63 10:37:004.8[facility] OHABASVHEU0238-29-82 10:37:001.3[facility] NgnptdlNUQRDTBYMB8804-02-22 10:37:000.6 [facility] DrftpxgLEPJJBIGWI8987-78-91 10:37:000.1[facility] HermannHEMATOLOGY 2020-08-29 10:37:001+ *ABN*(08/29/20 5:37 AM)[facility] LekfzbuDRDVHADXOF2777-54-67 10:37:00Not Detected (08/29/20 5:37 AM)[facility] HermannBLOOD BANK RESULTS 2020-08-29 10:37:00Negative (08/29/20 5:37 AM)[facility] HermannCHEM WQVJU5894-55-48 10:37:64972Fdvstnfl HermannCHEM RAFAZ4376-48-79 10:37:0028[facility] HermannCHEM IAKON0557-45-67 10:37:001.01[facility] HermannCHEM TQSVS4739-77-04 10:37:58963 [facility] HermannCHEM UHOIC1786-87-78 10:37:003.8[facility] HermannCHEM PANEL 2020-08-29 10:37:89397Begjohhp HermannCHEM MRYJF2482-26-57 10:37:0028[facility] HermannCHEM GJQTQ1159-60-56 10:37:009.8[facility] HermannCHEM SHJPZ6560-05-16 10:37:0011.8[facility] HermannCHEM BYWAD7328-78-36 10:37:0059[facility] HermannCHEM IQEBO7129-46-26 10:37:002.9[facility] DknrtqoNKXZWSPVRQ1462-68-76 10:37:006.8 [facility] EzvgrwtFONRMJSSTI2887-56-87 10:37:004.47[facility] HermannHEMATOLOGY 2020-08-29 10:37:0010.6[facility] UcnholaOQARMBGPML5800-23-92 10:37:0034.0[facility] PwckvmrJZRLGBIJBU5998-25-28 10:37:0076.1[facility] CihdqetSHIIVNPVLA2339-73-66 10:37:00 Test Item Value Reference Range Interpretation Comments MCH (test code = MCH) 23.8 pg 27.0-31.0 [facility] RiyhuuqEWXNCTHVCH0417-39-71 10:37:0031.3[facility] HermannHEMATOLOGY 2020-08-29 10:37:0018.2[facility] AigepdiMDOOGRRICE5973-39-95 10:37:48055Tvdkxekd QioshboXKLWZUEXTY3662-64-26 10:37:007.5[facility] OfvzjwdMTADBUGUNR6544-78-92 10:37:00 Test Item Value Reference Range Interpretation Comments PT (test code = PT) 12.8 s 12.0-14.7 [facility] TybboqiVDNBSYMGAZ0060-25-62 10:37:00 Test Item Value Reference Range Interpretation Comments INR (test code = INR) 0.97 1 0.85-1.17 [facility] JjhpcglSSOOYPLFXR0469-97-12 10:37:00 Test Item Value Reference Range Interpretation Comments PTT (test code = PTT) 25.0 s 22.9-35.8 [facility] IjmbpqxCAMPITIXAT9964-00-44 10:37:0070.5[facility] HermannHEMATOLOGY 2020-08-29 10:37:0018.8[facility] YlosalvKYXVFMJSRQ8512-08-49 10:37:009.5[facility] SlbdixfITYLHDHRFI0691-05-93 10:37:000.9[facility] GfqnakhOTHRITHKXC5953-07-30 10:37:000.3[facility] TzgcaegFQXIWFXJND2565-07-10 10:37:004.8[facility] LFJQIBXUPW4408-75-56 10:37:001.3[facility] UkqngfaVITKNENKZG7853-21-03 10:37:000.6 [facility] TmdqyxpOOZKAAHIEQ1243-97-21 10:37:000.1[facility] HermannHEMATOLOGY 2020-08-29 10:37:001+ *ABN*(08/29/20 5:37 AM)[facility] MoeepjuBVDKISCWKV1536-41-91 10:37:00Not Detected (08/29/20 5:37 AM)[facility] HermannBLOOD BANK RESULTS 2020-08-29 10:37:00Negative (08/29/20 5:37 AM)[facility] HermannCHEM ULOVA7648-54-77 10:37:22217Tqrjcptl HermannCHEM JZKSX9932-92-20 10:37:0028[facility] HermannCHEM VMJCF1077-75-55 10:37:001.01[facility] HermannCHEM PLNHZ4920-84-50 10:37:81773 [facility] HermannCHEM MBMED7020-84-24 10:37:003.8[facility] HermannCHEM PANEL 2020-08-29 10:37:97680Ydlfrrtp HermannCHEM NBRQG0963-31-37 10:37:0028[facility] HermannCHEM KSETY5047-25-49 10:37:009.8[facility] HermannCHEM IVRRZ3481-34-82 10:37:0011.8[facility] HermannCHEM YSMUV5107-74-93 10:37:0059[facility] HermannCHEM VTOWX0972-57-69 10:37:002.9[facility] YjvmwscKIUXQTLMOV8184-16-72 10:37:006.8 [facility] UlimsaaMOHRWUERRI3113-63-83 10:37:004.47[facility] HermannHEMATOLOGY 2020-08-29 10:37:0010.6[facility] UaidhkaODUEBWEANA2785-70-89 10:37:0034.0[facility] GnqcsmcAASAWONVVN3967-97-73 10:37:0076.1[facility] GpimdqsDUNUBVTINJ3190-59-46 10:37:00 Test Item Value Reference Range Interpretation Comments MCH (test code = MCH) 23.8 pg 27.0-31.0 [facility] MrfgdsgZIQKUGXPHS3813-85-12 10:37:0031.3[facility] HermannHEMATOLOGY 2020-08-29 10:37:0018.2[facility] HsoacnhMBJGPIUXSG0730-16-66 10:37:51139Jcfgrosk SapslpaAFZFUEKNJL9060-77-09 10:37:007.5[facility] OebiiahJEVJMAMZDE0588-94-42 10:37:00 Test Item Value Reference Range Interpretation Comments PT (test code = PT) 12.8 s 12.0-14.7 [facility] YmzfhfhCQJAMFNQQJ1332-22-95 10:37:00 Test Item Value Reference Range Interpretation Comments INR (test code = INR) 0.97 1 0.85-1.17 [facility] NaraoecRZDQKTTPHX3171-60-33 10:37:00 Test Item Value Reference Range Interpretation Comments PTT (test code = PTT) 25.0 s 22.9-35.8 [facility] SllnengRSOMJCOOHX6837-91-62 10:37:0070.5[facility] HermannHEMATOLOGY 2020-08-29 10:37:0018.8[facility] GtixntcYKYWPXPBYM9591-76-65 10:37:009.5[facility] NmsukhsQCGWCNKZQQ1588-17-67 10:37:000.9[facility] RndbafzZQXOMRKSZL0773-76-54 10:37:000.3[facility] QnfmwrnKQDCXDHCDV3780-09-64 10:37:004.8[facility] MSNGUTPEIE0162-29-42 10:37:001.3[facility] IafocztGRCRKNKFGY4049-71-75 10:37:000.6 [facility] CytckmjUUCAVRUQII4388-25-98 10:37:000.1[facility] HermannHEMATOLOGY 2020-08-29 10:37:001+ *ABN*(08/29/20 5:37 AM)[facility] LoebbgyRTJETUVQYB5873-13-82 10:37:00Not Detected (08/29/20 5:37 AM)[facility] HermannBLOOD BANK RESULTS 2020-08-29 10:37:00Negative (08/29/20 5:37 AM)[facility] HermannCHEM XSBUZ4441-11-98 10:37:58126Phtuibsy HermannCHEM PNLRO9624-52-73 10:37:0028[facility] HermannCHEM OCLMZ7423-81-53 10:37:001.01[facility] HermannCHEM JSUVG9290-83-88 10:37:23043 [facility] HermannCHEM UTSCY8359-16-68 10:37:003.8[facility] HermannCHEM PANEL 2020-08-29 10:37:56204Kujisgjz HermannCHEM FROIE3045-68-00 10:37:0028[facility] HermannCHEM WEQYW7615-27-18 10:37:009.8[facility] HermannCHEM OHGRK0243-60-44 10:37:0011.8[facility] HermannCHEM UPKSC0268-96-62 10:37:0059[facility] HermannCHEM UJMIP4470-18-29 10:37:002.9[facility] PrmgzztCCGDITCVPP9316-35-35 10:37:006.8 [facility] ItvetmqJMHKVXZUSP9890-00-43 10:37:004.47[facility] HermannHEMATOLOGY 2020-08-29 10:37:0010.6[facility] QqheiloOWSCFAXFZK1634-88-89 10:37:0034.0[facility] WwbnpmmTHVBCYTILQ5631-39-62 10:37:0076.1[facility] RutkzfyEOFFVAGNTU4580-54-31 10:37:00 Test Item Value Reference Range Interpretation Comments MCH (test code = MCH) 23.8 pg 27.0-31.0 [facility] OgwtfbhQRDGYRQGMH8911-79-71 10:37:0031.3[facility]annHEMATOLOGY 2020-08-29 10:37:0018.2[facility] RheienhZWFKAIATIV2850-62-16 10:37:67797Kwekwjtq ShtkbpnQCEYXTOBOB2008-94-05 10:37:007.5[facility] FydecbaNCTTOHMBKA8274-54-37 10:37:00 Test Item Value Reference Range Interpretation Comments PT (test code = PT) 12.8 s 12.0-14.7 [facility] CntoaquSUDBFHFXQW0101-17-11 10:37:00 Test Item Value Reference Range Interpretation Comments INR (test code = INR) 0.97 1 0.85-1.17 [facility] YrpdefqSTLIPOXUBS6408-51-72 10:37:00 Test Item Value Reference Range Interpretation Comments PTT (test code = PTT) 25.0 s 22.9-35.8 [facility] TypsnmsGTIEBLFOMM8535-37-94 10:37:0070.5[facility]annHEMATOLOGY 2020-08-29 10:37:0018.8[facility] IgajxujDZGDNHVTHL1009-23-38 10:37:009.5[facility] YvhvdrvJQECURCJEV4611-58-09 10:37:000.9[facility] YieasiqWUAFJSVKRM5744-61-18 10:37:000.3[facility] YvwdfkiOEFDMSWVWF3069-76-26 10:37:004.8[facility] FSBSDPFQYK9164-14-60 10:37:001.3[facility] RtrvjzaRQRJUPFHUZ1826-15-15 10:37:000.6 [facility] KmpvlrlXHLXUNYEWZ1567-25-04 10:37:000.1[facility]annHE[facility]OLOGY 2020-08-29 10:37:001+ *ABN*(08/29/20 5:37 AM)[facility] UtkbbkeIOAMLLMHGB0627-54-65 10:37:00Not Detected (08/29/20 5:37 AM)[facility] ResourcesNOAH, GC, TV,PCR, IN [id number] 15:38:00 Test Item Value Reference Range Interpretation Comments FT (test code = CHTR) Not detected (qualifier Not Detected N value) FT (test code = Not detected (qualifier Not Detected N NGONO) value) FT (test code = TRVG) Not detected (qualifier Not Detected N value) [facility] PSAJOYLSEPH5081-26-40 10:57:00 Test Item Value Reference Range Interpretation Comments Color (test code = UCOLR) Dk. Yellow Clarity (test code = UCLAR) Hazy Glucose (test code = UGLUC) NEGATIVE NEGATIVE N Bilirubin (test code = UBILI) NEGATIVE NEGATIVE N Ketones (test code = UKET) NEGATIVE NEGATIVE N Specific [place] (test code = 1.025 1.005-1.030 A USPGR) [...] None Seen None Seen N URCRYS) [facility]"
[2022-08-04] MEDS ORDERED: MORPHINE 2 MG/ML SYR ONE (08:29)
[2022-08-04] MEDS ORDERED: ONDANSETRON 4 MG/2 ML VIAL ONE (08:29)
--- NOTE | 2022-08-04 09:12 | RAD REPORT ---
EXAM DESCRIPTION: CT - Chest Abd Pelvis Wo Con - 08/04/2022 8:16 am CLINICAL HISTORY: s/p fall;Chest pain. Bruising to the left side of body COMPARISON: Chest For Pe Angio dated 04/02/2020; Chest Abd Pelvis Wo Con dated 12/26/2019; Chest For P e Angio dated 07/03/2019; Thorax Wo Con dated 06/18/2019 TECHNIQUE: Thin axial CT cuts of the chest, abdomen, and pelvis, performed without IV contrast. Mult iplanar reformats were generated and reviewed. All CT scans are performed using dose optimization technique as appropriate and may include automated exposure control or mA/KV adjustment according to patient size. FINDINGS: The lungs are clear.No pleural or pericardial effusion.No intrathoracic adenopathy. Ectasi a of the ascending thoracic aorta, measuring 4.3 centimeter in greatest axial diameter, slightly more prominent than on the prior exams. Prosthetic aortic valve in place. The liver, spleen, pancreas, and adrenal glands are within normal limits. Stable bilateral fluid dens ity renal cortical lesions suggestive of cysts. Right lower pole 2 millimeter nonobstructive calculus . The status post cholecystectomy. No bowel obstruction, free air, free fluid or abscess. Normal appendix. No pathologic lymphadenopath y in the abdomen or pelvis. No worrisome osseous finding. IMPRESSION: No acute findings in the chest, abdomen, or pelvis. Ectasia of the ascending thoracic aorta, measuring 4.3 centimeter in greatest transverse diameter, sl ightly increased in diameter compared to prior exams, where it measured up to 4 centimeter. Other incidental findings as above including a nonobstructing right lower renal pole 2 millimeter porfirio culus.
[2022-08-04 09:27] LABS: Absolute Lymphocytes (CBC) 0.9 K/uL (0.7-4.9); MCV 87.2 fL (80-100); RBC Red Blood Cell Count 4.25 M/uL (3.86-4.86)
[2022-08-04 09:43] LABS: Albumin 3.1 g/dL (3.4-5.0); Bilirubin Total 0.4 mg/dL (0.2-1.0); Potassium 3.1 mmol/L (3.5-5.1); Protein, Total 6.4 g/dL (6.4-8.2)
[2022-08-04] MEDS ORDERED: POTASSIUM 25 MEQ EFFERV TAB ONE (10:47)
[2022-08-04] MEDS ORDERED: HYDROCODONE/APAP 7.5/325 MG TAB ONE (10:47)
[2022-08-04] MEDS ORDERED: HYDRALAZINE HCL 20 MG/ML VIAL ONE ×2 (10:47→11:44)
[2022-08-04 10:50] LABS: Blood Morphology Comment NOT SEEN (NOT SEEN); Platelet Estimate DECR; White Blood Cell Scan OK (OK)
--- NOTE | 2022-08-04 12:22 | RAD REPORT ---
EXAM DESCRIPTION: RAD - Wrist Left 3 View - 08/04/2022 9:58 am CLINICAL HISTORY: PAIN COMPARISON: Wrist Left 3 View dated 07/01/2022; Wrist Left 3 View dated 01/12/2022 TECHNIQUE: Left wrist, 3 views. FINDINGS: No acute fracture. There is no dislocation or periosteal reaction noted. Stable deformity of the distal radius and widening of the scapholunate interval. Sclerosis at the base of the scaphoid , with osseous remodeling along the lateral aspect of the radiocarpal articulation again noted, and s table. No suspicious bony finding. No foreign body or other soft tissue abnormality. IMPRESSION: No acute osseous abnormality. Stable chronic findings, which suggest remote trauma, as a nadine.
--- NOTE | 2022-08-04 12:36 | ER ---
Nurse's Notes [facility] Name: Marjan Kolb Age: 67 yrs Sex: Female : 1955 Arrival Date: 08/04/2022 Time: 07:09 Bed 4 Private MD: Diagnosis: Chest pain, unspecified;Chest pain on breathing;Pain in left wrist;Hypertensive heart disease without heart failure-Poorly controlled;Fall from standing onto her left side with resultant ecchymosis and contusions Presentation: 08/04 07:16 Chief complaint: Patient states: Patient fell last night while using walker and was sg5 unable to get up, denies LOC. Called EMS. Patient reports another fall a few days ago. Patient has significant bruising to left side of body and bilateral arms. Coronavirus screen: Vaccine status: Patient reports receiving the 2nd dose of the covid vaccine. Ebola Screen: Patient negative for fever greater than or equal to 101.5 degrees Fahrenheit, and additional compatible Ebola Virus Disease symptoms Patient denies exposure to infectious person. Patient denies travel to an Ebola-affected area in the 21 days before illness onset. No symptoms or risks identified at this time. Initial Sepsis Screen: Does the patient meet any 2 criteria? No. Patient's initial sepsis screen is negative. Does the patient have a suspected source of infection? No. Patient's initial sepsis screen is negative. Risk Assessment: Do you want to hurt yourself or someone else? Patient reports no desire to harm self or others. Onset of symptoms was August 03, 2022. 07:16 Method Of Arrival: EMS: [facility] sg5 07:16 Acuity: BLAYNE 3 sg5 Triage Assessment: 07:20 General: Appears comfortable, Behavior is calm, cooperative, appropriate for age. Pain: sg5 Complains of pain in Generalized left side of body. Cardiovascular: No deficits noted. Respiratory: No deficits noted. Derm: Bruising that is dark purple, brown, on Generalized left side of body and bilateral arms. Historical: - Allergies: 07:20 Azithromycin; sg5 07:20 Bactrim; sg5 07:20 butorphanol; sg5 07:20 Fentanyl; sg5 07:20 Reglan; sg5 07:20 Sulfa (Sulfonamide Antibiotics); sg5 07:20 TRIMETHOPRIM; sg5 - PMHx: 07:20 Anxiety; Atrial fibrillation; Bipolar disorder; esophageal varicies; Hepatitis; HIV sg5 positive; Hypertensive disorder; Migraine; panic attack; - Immunization history:: Adult Immunizations up to date, Client reports receiving the 2nd dose of the Covid vaccine, Last tetanus immunization: < 5 years ago Pneumococcal vaccine status is unknown, Flu vaccine status is unknown. - Social history:: Smoking status: Patient reports the use of cigarette tobacco products, smokes one-half pack cigarettes per day, Patient uses alcohol, on a daily basis. Screenin:[facility] ED Fall Risk Assessment (Adult) History of falling in the last 3 months, sg5 including since admission Yes- single mechanical fall (1 pt). Abuse screen: Denies threats or abuse. Nutritional screening: No deficits noted. Tuberculosis screening: No symptoms or risk factors identified. Assessment: 07:24 General: Appears comfortable, Behavior is calm, cooperative, appropriate for age. Pain: sg5 Complains of pain in Generalized left side of body. Pain currently is 5 out of 10 on a pain scale. at worst was 7 out of 10 on a pain scale. Neuro: Level of Consciousness is awake, alert, obeys commands, Oriented to person, place, time, situation, Appropriate for age Job Hand are equal bilaterally Moves all extremities. Speech is normal, Facial symmetry appears normal, Reports weakness since Last night after fall. Cardiovascular: No deficits noted. Denies chest pain, nausea, palpitations, shortness of breath, syncope, vomiting, Heart tones S1 S2 present Capillary refill < 3 seconds. Respiratory: No deficits noted. Airway is patent Trachea midline Breath sounds are clear bilaterally. Denies shortness of breath. GI: No deficits noted. No signs and/or symptoms were reported involving the gastrointestinal system. Abdomen is round non-distended, bruised on anterior aspect of left lateral abdomen Bowel sounds present X 4 quads. : No deficits noted. No signs and/or symptoms were reported regarding the genitourinary system. EENT: No deficits noted. No signs and/or symptoms were reported regarding the EENT system. Derm: Bruising that is dark purple, brown, on Generalized left side of body and bilateral arms. Musculoskeletal: No deficits noted. 09:34 Reassessment: No changes from previously documented assessment. Patient and/or family sg5 updated on plan of care and expected duration. Pain level reassessed. Patient is alert, oriented x 3, equal unlabored respirations, skin warm/dry/pink. 10:48 Reassessment: Patient appears in no apparent distress at this time. No changes from hb previously documented assessment. Patient and/or family updated on plan of care and expected duration. Pain level reassessed. 12:00 Reassessment: Patient and/or family updated on plan of care and expected duration. Pain sg5 level reassessed. Patient is alert, oriented x 3, equal unlabored respirations, skin warm/dry/pink. Vital Signs: 07:16 BP 151 / 92; Pulse 53; Resp 16; Temp 97.8; Pulse Ox 100% on R/A; Weight 73.48 kg; sg5 Height 5 ft. 4 in. ; Pain 6/10; 08:20 BP 191 / 92; Pulse 53; Resp 16; Pulse Ox 98% on R/A; Pain 5/10; sg5 09:20 BP 170 / 113; Pulse 55; Resp 16; Pulse Ox 100% on R/A; Pain 5/10; sg5 10:48 BP 202 / 103; Pulse 53; Resp 15; Pulse Ox 99% ; hb 11:08 BP 173 / 118; Pulse 62; Resp 16; Pulse Ox 100% on R/A; Pain 5/10; sg5 12:00 BP 157 / 85; Pulse 62; Resp 16; Pulse Ox 99% on R/A; Pain 5/10; sg5 12:28 BP 118 / 67; Pulse 64; Resp 16; Pulse Ox 100% ; Pain 5/10; sg5 07:16 Body Mass Index 27.81 (73.48 kg, 162.56 cm) sg5 07:16 Pain Scale: Adult sg5 08:20 Pain Scale: Adult sg5 09:20 Pain Scale: Adult sg5 11:08 Pain Scale: Adult sg5 12:00 Pain Scale: Adult sg5 12:28 Pain Scale: Adult sg5 ED Course: 07:09 Patient arrived in ED. sg5 07:16 Leyda Maguire, ASHLEY is Primary Nurse. sg5 07:16 Joey Jung MD is Attending Physician. kdr 07:20 Triage completed. sg5 07:20 Arm band placed on left wrist. sg5 07:24 Patient has correct armband on for positive identification. Placed in gown. Bed in low sg5 position. Call light in reach. Side rails up X2. Valuables Left with patient. 08:14 Missed attempt(s): 22 gauge in left in right antecubital area. sg5 08:18 CT Chest Abdomen Pelvis W/O Contrast In Process Unspecified. EDMS 09:03 Inserted saline lock: 24 gauge in right wrist, using aseptic technique. Blood collected.bp 10:00 Wrist Left (3 View) XRAY In Process Unspecified. EDMS Administered Medications: 09:04 Drug: morphine IVP or IV 2 mg Route: IVP; Infused Over: 4 mins; Site: right wrist; bp 10:53 Follow up: Response: No adverse reaction bp 09:04 Drug: Ondansetron IVP 4 mg Route: IVP; Site: right wrist; bp 10:53 Follow up: Response: No adverse reaction bp 10:45 Drug: hydrALAZINE IVP 10 mg Route: IVP; Site: right wrist; bp 10:45 Drug: Potassium PO Effervescent Tablet 50 mEq Route: PO; bp 10:45 Drug: Hydrocodone-Acetaminophen PO (7.5 mg-325 mg) 1 tabs Route: PO; bp 11:42 Drug: hydrALAZINE IVP 20 mg Route: IVP; Site: right wrist; sg5 Medication: 07:24 VIS not applicable for this client. sg5 Outcome: 12:35 Discharge ordered by . kdr Signatures: Dispatcher [employer] EDMS Joey Jung MD MD [facility] Tata Rivera RN RN hb Peltier, Brian, RN RN bp Galvan, Stephanie, RN RN sg5 Corrections: (The following items were deleted from the chart) 07:30 07:16 Chief complaint: Patient states: Patient feel last night and was unable to get sg5 up, denies LOC. Patient report another fall a few days ago. Patient has significant bruising to left side of body and bilateral arms. sg5 07:31 07:16 Chief complaint: Patient states: Patient fell last night while using walker and sg5 was unable to get up, denies LOC. Patient report another fall a few days ago. Patient has significant bruising to left side of body and bilateral arms. sg5
--- NOTE | 2022-08-04 12:36 | EDPHYS ---
Physician Documentation [facility] Name: Marjan Kolb Age: 67 yrs Sex: Female : 1955 Arrival Date: 08/04/2022 Time: 07:09 Bed 4 Private MD: ED Physician Joey Jung Historical: - Allergies: 08/04 07:20 Azithromycin; sg5 07:20 Bactrim; sg5 07:20 butorphanol; sg5 07:20 Fentanyl; sg5 07:20 Reglan; sg5 07:20 Sulfa (Sulfonamide Antibiotics); sg5 07:20 TRIMETHOPRIM; sg5 - PMHx: 07:20 Anxiety; Atrial fibrillation; Bipolar disorder; esophageal varicies; Hepatitis; HIV sg5 positive; Hypertensive disorder; Migraine; panic attack; - Immunization history:: Adult Immunizations up to date, Client reports receiving the 2nd dose of the Covid vaccine, Last tetanus immunization: < 5 years ago Pneumococcal vaccine status is unknown, Flu vaccine status is unknown. - Social history:: Smoking status: Patient reports the use of cigarette tobacco products, smokes one-half pack cigarettes per day, Patient uses alcohol, on a daily basis. Vital Signs: 07:16 BP 151 / 92; Pulse 53; Resp 16; Temp 97.8; Pulse Ox 100% on R/A; Weight 73.48 kg; sg5 Height 5 ft. 4 in. ; Pain 6/10; 08:20 BP 191 / 92; Pulse 53; Resp 16; Pulse Ox 98% on R/A; Pain 5/10; sg5 09:20 BP 170 / 113; Pulse 55; Resp 16; Pulse Ox 100% on R/A; Pain 5/10; sg5 10:48 BP 202 / 103; Pulse 53; Resp 15; Pulse Ox 99% ; hb 11:08 BP 173 / 118; Pulse 62; Resp 16; Pulse Ox 100% on R/A; Pain 5/10; sg5 12:00 BP 157 / 85; Pulse 62; Resp 16; Pulse Ox 99% on R/A; Pain 5/10; sg5 12:28 BP 118 / 67; Pulse 64; Resp 16; Pulse Ox 100% ; Pain 5/10; sg5 07:16 Body Mass Index 27.81 (73.48 kg, 162.56 cm) sg5 07:16 Pain Scale: Adult sg5 08:20 Pain Scale: Adult sg5 09:20 Pain Scale: Adult sg5 11:08 Pain Scale: Adult sg5 12:00 Pain Scale: Adult sg5 12:28 Pain Scale: Adult sg5 MDM: 12:35 Patient medically screened. kdr 08/04 07:50 Order name: CT Chest Abdomen Pelvis W/O Contrast; Complete Time: 09:14 kdr 08/04 07:50 Order name: CMP; Complete Time: 10:17 kdr 08/04 07:50 Order name: CBC with Diff; Complete Time: 11:36 kdr 08/04 10:50 Order name: CBC Smear Scan; Complete Time: 11:36 EDMS 08/04 09:20 Order name: Wrist Left (3 View) XRAY; Complete Time: 12:33 kdr Administered Medications: 09:04 Drug: morphine IVP or IV 2 mg Route: IVP; Infused Over: 4 mins; Site: right wrist; bp 10:53 Follow up: Response: No adverse reaction bp 09:04 Drug: Ondansetron IVP 4 mg Route: IVP; Site: right wrist; bp 10:53 Follow up: Response: No adverse reaction bp 10:45 Drug: hydrALAZINE IVP 10 mg Route: IVP; Site: right wrist; bp 10:45 Drug: Potassium PO Effervescent Tablet 50 mEq Route: PO; bp 10:45 Drug: Hydrocodone-Acetaminophen PO (7.5 mg-325 mg) 1 tabs Route: PO; bp 11:42 Drug: hydrALAZINE IVP 20 mg Route: IVP; Site: right wrist; sg5 Disposition Summary: 08/04/22 12:35 Discharge Ordered Location: Home kdr Problem: new kdr Symptoms: have improved kdr Condition: Stable kdr Diagnosis - Chest pain, unspecified kdr - Chest pain on breathing kdr - Pain in left wrist kdr - Hypertensive heart disease without heart failure - Poorly controlled kdr - Fall from standing onto her left side with resultant ecchymosis and contusions kdr Followup: kdr - With: Private Physician - When: 2 - 3 days - Reason: If symptoms return, Further diagnostic work-up, Recheck today's complaints, Continuance of care, Re-evaluation by your physician Forms: - Medication Reconciliation Form kdr - Thank You Letter kdr - Antibiotic Education kdr - Prescription Opioid Use kdr Signatures: Dispatcher [employer] [facility] MD kdr Carlos Eduardo Olivera, RN RN bp Leyda Maguire RN RN sg5
[2022-08-04 15:42] VITALS: TEMP 97.8
[2022-08-04 15:52] VITALS: BP 133/72; O2SAT 99
== END 2022-08-04 12:52 | disposition home or self-care (01) ==
LOC: ER 07:05
DX: I11.9 Hypertensive heart disease without heart failure (principal); R07.9 Chest pain, unspecified; M25.532 Pain in left wrist; T14.8XXA Other injury of unspecified body region, initial encounter; W19.XXXA Unspecified fall, initial encounter; F17.210 Nicotine dependence, cigarettes, uncomplicated; I10 Essential (primary) hypertension; Z21 Asymptomatic human immunodeficiency virus [HIV] infection status; Z88.1 Allergy status to other antibiotic agents; Z88.2 Allergy status to sulfonamides; Z88.3 Allergy status to other anti-infective agents
CPT/HCPCS: 36415; 71250; 73110; 74176; 80053; 85025; J0360 ×2; J2270; J2405

== ENCOUNTER 2022-08-05 10:10 | Emergency (ER) | payer OTHER ==
--- NOTE | 2022-08-05 10:27 | ER ---
Nurse's Notes [facility] Name: Marjan Kolb Age: 67 yrs Sex: Female : 1955 Arrival Date: 08/05/2022 Time: 10:15 Bed 2 Private MD: Diagnosis: Chronic pain due to trauma Presentation: 08/05 10:15 Chief complaint: EMS states: patient had a fall at home yesterday and came here to the ko1 ER. She says that her ribs hurt really bad today. Coronavirus screen: At this time, the client does not indicate any symptoms associated with coronavirus-19. Ebola Screen: No symptoms or risks identified at this time. Initial Sepsis Screen: Does the patient meet any 2 criteria? No. Patient's initial sepsis screen is negative. Does the patient have a suspected source of infection? No. Patient's initial sepsis screen is negative. Risk Assessment: Do you want to hurt yourself or someone else? Patient reports no desire to harm self or others. Onset of symptoms was August 04, 2022 at 12:00. 10:15 Method Of Arrival: EMS: [facility] ko1 10:15 Acuity: BLAYNE 3 ko1 10:15 Care prior to arrival:. ko1 Triage Assessment: 10:19 General: Appears in no apparent distress. comfortable, Behavior is calm, cooperative, ko1 appropriate for age. Pain: Complains of pain in ribs. Historical: - Allergies: 10:19 Azithromycin; ko1 10:19 Bactrim; ko1 10:19 butorphanol; ko1 10:19 Fentanyl; ko1 10:19 Reglan; ko1 10:19 Sulfa (Sulfonamide Antibiotics); ko1 10:19 TRIMETHOPRIM; ko1 - PMHx: 10:19 Anxiety; Bipolar disorder; esophageal varicies; Hepatitis; Atrial fibrillation; HIV ko1 positive; Hypertensive disorder; Migraine; panic attack; - Immunization history:: Adult Immunizations unknown. - Social history:: Smoking status: Patient reports the use of cigarette tobacco products, smokes one pack cigarettes per day. Vital Signs: 10:15 BP 186 / 107; Pulse 60; Resp 18; Temp 97; Pulse Ox 96% on R/A; Weight 76.2 kg; Height 5 ko1 ft. 4 in. ; 10:15 Body Mass Index 28.84 (76.20 kg, 162.56 cm) ko1 ED Course: 10:15 Patient arrived in ED. ko1 10:15 Joey Jung MD is Attending Physician. kdr 10:15 Nancy Shannon, RN is Primary Nurse. ko1 10:18 Triage completed. ko1 10:19 Arm band placed on right wrist. Patient placed in an exam room, on a stretcher, on ko1 lunchroom monitor, Patient notified of wait time. Administered Medications: No medications were administered Outcome: : Discharge ordered by . kdr Signatures: Joey Jung MD MD kdr Nancy Shannon, RN RN ko1
--- NOTE | 2022-08-05 10:27 | EDPHYS ---
Physician Documentation [facility] Name: Marjan Kolb Age: 67 yrs Sex: Female : 1955 Arrival Date: 08/05/2022 Time: 10:15 Bed 2 Private MD: ED Physician Joey Jung Historical: - Allergies: 08/05 10:19 Azithromycin; ko1 10:19 Bactrim; ko1 10:19 butorphanol; ko1 10:19 Fentanyl; ko1 10:19 Reglan; ko1 10:19 Sulfa (Sulfonamide Antibiotics); ko1 10:19 TRIMETHOPRIM; ko1 - PMHx: 10:19 Anxiety; Bipolar disorder; esophageal varicies; Hepatitis; Atrial fibrillation; HIV ko1 positive; Hypertensive disorder; Migraine; panic attack; - Immunization history:: Adult Immunizations unknown. - Social history:: Smoking status: Patient reports the use of cigarette tobacco products, smokes one pack cigarettes per day. Vital Signs: 10:15 BP 186 / 107; Pulse 60; Resp 18; Temp 97; Pulse Ox 96% on R/A; Weight 76.2 kg; Height 5 ko1 ft. 4 in. ; 10:15 Body Mass Index 28.84 (76.20 kg, 162.56 cm) ko1 MDM: 10:26 Patient medically screened. kdr Administered Medications: No medications were administered Disposition Summary: 08/05/22 10:26 Discharge Ordered Location: Home kdr Problem: an ongoing problem kdr Symptoms: are unchanged kdr Condition: Stable kdr Diagnosis - Chronic pain due to trauma kdr Followup: kdr - With: Private Physician - When: 2 - 3 days - Reason: If symptoms return, Further diagnostic work-up, Recheck today's complaints, Continuance of care, Re-evaluation by your physician Discharge Instructions: - Discharge Summary Sheet kdr - Chronic Pain, Adult kdr Forms: - Medication Reconciliation Form kdr - Thank You Letter kdr Signatures: Joey Jung MD MD kdr Nancy Shannon RN RN ko1
--- OUTSIDE RECORDS SUMMARY | 2022-08-05 10:33 | XMS REPORT | Continuity of Care Document ---
:1955 Author Organization [facility] t Address [address] [place] [address] Care Team Providers Name Role Phone Urmila [...] Attending Clinician Unavailable Robbi Bal Attending Clinician [facility] Attending Clinician Unavailable Isaias Whiteside RN Attending Clinician Unavailable TOMY MARIE Attending Clinician Unavailable Reilly Means MD Attending Clinician Ofe Shields MD Attending Clinician Tomy Marie MD Attending Clinician Doctor Unassigned, [place] Attending Clinician Unavailable Bill COLES Attending Clinician Unavailable Bill Rose Attending Clinician CHARITY MCALLISTER Attending Clinician Unavailable Charity Mcallister MD Attending Clinician GADIEL KOEHLER Attending Clinician Unavailable Mike Lund Attending Clinician Unavailable NIKOLAI REEVES Attending Clinician Unavailable Eliseo Arce MD Attending Clinician Carol Ann IZQUIERDO, Sarai Lieberman Attending Clinician [phone] Ashly Pelletier MA Attending Clinician Unavailable Dagoberto Bass MD Attending Clinician [place] Evangelista Attending Clinician Lab, [facility] I Attending Clinician Unavailable Monica Rodas MA Attending Clinician Unavailable Agustina Ortiz MA Attending Clinician Unavailable Rody Maguire RN Attending Clinician Unavailable Remigio MD, Saraswathi V. Attending Clinician HEMATPOUR, BEVERLY Attending Clinician Unavailable Caridad SALGUERO, Gloria Attending Clinician Xiao RAMIREZ, Michael Corbin Attending Clinician Unavailable Team, [facility] Attending Clinician UnavailDO PORSHA Newell Attending Clinician Unavailable Gadiel Koehler MD Attending Clinician Tyrone JENKINS, Eveline Sierra Attending Clinician Eladio Colorado RN Attending Clinician Unavailable Geraldine SALGUERO, Leyda Attending Clinician [phone] Selvin RAMIREZ, Stefanie Attending Clinician Unavailable HOME MATTHEWS Admitting Clinician Unavailable ANETTE OLEA Admitting Clinician Unavailable TOMY MARIE Admitting Clinician Unavailable Frank JENKINS, Tomy Admitting Clinician Bill COLES Admitting Clinician Unavailable Lacey UrmilaBibianaFrancisco Kristen Admitting Clinician Unavailable Mike Lund Admitting Clinician Unavailable ELISEO RACE Admitting Clinician Unavailable DO PORSHA STREETER Admitting Clinician Unavailable Payers Payer Name Policy Type Policy Number Effective Date Expiration Date S gabino [facility] [id number] 2012 STAR PLUS OON 00:00:00 [facility] [id number] 2019 DUAL COMPLETE HMO 00:00:00 [facility]LY [facility] [id number] 2019 PLUS 00:00:00 [employer] [id number] 2019 [place] STAR 00:00:00 [employer] MEDICARE ADV [id number] 2019 2019 00:00:00 00:00:00 Problems Condition Condition Condition Status Onset Resolution Last Treating Co mments Source Name Details Category Date Date Treatment Clinician Date Dyspnea, Dyspnea, Disease Active Unive rs unspecifie unspecifie 02-11 it y of d type d type 00:00: [place] [address] Medical Branch Gastropare Gastropare Disease Active Overview : Methodi sis sis 4-[address] 00:00: [facility] note l might be different from the original. Added automatic ally from request for surgery [id number] Dysphagia Dysphagia Disease Active Overview: Methodi 4-[address] 00:00: g of [facility] 00 note l might be different from the original. 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 2020-10-15 Get PVI PVI 3-30 17:07:00 l ABLATION ABLATION 00:00: Patel n W/ CARTO / W/ CARTO / 00 GA / T GA / T Active 08[facility]2020 [facility] hoxazole 1-25 Clear 00:00: Garcia 00 [facility] trimetho DA Active SV [facility] prim 1-25 Clear 00:00: Garcia [facility] codeine DA Active SV N/V HCA 1-25 Clear 00:00: Garcia [facility] Metoclop Propensi Active [place] ramide ty to 12-12 Health adverse 00:00: reaction 00 s BUTORPHA DRUG Active Unknown-Cmnt Un matt NOL INGREDI 11-25 ity of 00:00: [place] [facility] Butorpha Drug Active Unknown - [...] 2017- Univers INGREDI 2-08 ity of 00:00: [place] [facility] TRIMETHO DRUG Active Hives Univers [...] Date Stop Date Source Natural father Diabetes [facility] Natural father Other - see comments [facility] Natural father Coronary Heart [facility] [place] Disease [facility] Natural [facility] Natural mother [facility] Social History Social Habit Start Date Stop Date Quantity Comments Source History SDOH [facility] Frequency [facility]osp[facility] l History SDOH [facility] Std Dr[facility] Hospit al History SDNV [facility] Exposure to 2022-04-30 2022-05-10 Yes University of SARS-CoV-2 (event) 00:00:00 10:25:00 [facility] Tobacco use and 2022-02-11 2022-02-11 Former smokeless Uni versity of exposure 00:00:00 00:00:00 tobacco user [facility] Tobacco Comment 2022-02-11 2022-02-11 Smokes approx 1-2 Un iversity of 00:00:00 00:00:00 cigarettes per [facility] day when she Branch smokes Alcohol intake 2020-12-08 2020-12-08 Current drinker [facility] 00:00:00 00:00:00 of [facility] (finding) Cigarettes smoked 2020-09-05 2020-09-[address] current [facility] - Reported Cigarette 2020-09-05 2020-09-05 [facility] pack-years 00:00:00 00:00:00 Hospital Alcohol Comment 2016-09-23 2016-09-23 rare [facility] 00:00:00 00:00:00 Hospital History of tobacco 2011-09-29 User of smokeless University of use 00:00:00 tobacco [facility] Sex Ass[birth year] At [birth year] [facility] 00:00:00 00:00:00 Smoking Status Start Date Stop Date Source Ex-smoker 2022-02-11 00:00:00 2022-02-11 00:00:00 Universi ty of [facility] Medications Ordered Filled Start Stop Current Ordering Indication Dosage Frequency Signature Comments Components Source Medication Medication Date Date Medication? Clinician (SIG) Name Name potassium 2021-05- No 10meq 10 mEq, IV Univers chloride in 07-11 Piggyback, i ty of water 10 20:00: 22:00 ONCE, 1 [place] mEq/100 mL 00 :00 dose, On Medic al RTU 10 mEq [facility] 05/10/22 at 1400, Administer over 60 Minutes, 100 mL magnesium 2021-05 No 800mg 800 mg, Uni vers oxide 07-11 Oral, ity of (MAG-OX 20:00: 19:37 ONCE, 1 [place] 400) tablet 00 :00 dose, On Medi porfirio 800 mg [facility] 05/10/22 at 1400, Routine KCL 2021-05- No 40meq 40 mEq, Univers (KLOR-CON 07-11 Oral, ity of M20) tablet 19:15: 19:37 [place]CE, 1 [place] 40 mEq 00 :00 dose, On Medical [facility] 05/10/22 at 1315, JOE hydralAZINE 2021-05- No 10mg 10 mg, Uni vers (APRESOLINE 07-11 Slow IV ity of ) injection 18:45: 18:42 [place] 10 mg 00 :00 ONCE, 1 Medical dose, On [facility] 05/10/22 at 1245, JOE NaCl 0.9% 2021-05- No 1000mL at 999 Uni vers (NS) bolus 07-11 mL/hr, ity of infusion 17:45: 20:00 1,000 mL, [place] 1,000 mL 00 :00 IV Medical Infusion, Branch ONCE, 1 dose, On [facility] 05/10/22 at 1145, JOE cefpodoxime 2021-05- Yes [id number] 100mg Take 1 Univers 100 mg 2-17 12-25 tablet by ity of tablet 00:00: 05:59 mouth in [place] 00 :00 the [facility] Branch and 1 tablet in the evening. Do all this for 7 days. cefpodoxime 2021-05- Yes [id number] 100mg Take 1 Univers 100 mg 2-17 12-25 tablet by ity of tablet 00:00: 05:59 mouth in [place] 00 :00 the [facility] morning Branch and 1 tablet in the evening. Do all this for 7 days. cefpodoxime 2021-05- Yes [id number] 100mg Take 1 Univers 100 mg 2-17 12-25 tablet by ity of tablet 00:00: 05:59 mouth in [place] 00 :00 the Medical [...] Infusion, Medical ONCE, 1 Branch dose, On [facility] 05/06/22 at 1800, JOE ketorolac 2021-05 No 15mg 15 mg, Unive rs (TORADOL) 2-15 12-15 Slow IV ity of injection 22:00: 22:19 Push, [place] 15 mg 00 :00 ONCE, 1 Medical dose, On Branch [facility] 05/06/22 at 1600, JOE NaCl 0.9% 2021-05- No 1000mL at 999 Uni vers (NS) bolus 2-15 12-15 mL/hr, ity of infusion 22:00: 23:41 1,000 mL, [place] 1,000 mL 00 :00 IV Medical Infusion, Branch ONCE, 1 dose, On [facility] 05/06/22 at 1600, JOE ondansetron 2021-05- No 8mg 8 mg, Slow Univers (ZOFRAN 2-15 12-15 IV Push, ity of (PF)) 21:15: 22:19 ONCE, 1 [place] injection 8 00 :00 dose, On Medi porfirio mg [place] 05/06/22 at 1515, JOE ondansetron 2021-05 Yes [id number] 1-2 U nivers 4 mg tablet 2-15 tablets ity o f 00:00: every 8 [place] 00 hours as Medical needed for Branch nausea benzonatate 2021-05 Yes [id number] 200mg Take 1 Univers 200 mg 2-15 capsule by ity of capsule 00:00: mouth 3 [place] 00 (three) Medical times Branch daily as needed for Cough. albuterol 2021-05 Yes [id number] 2{puff} Inhale 2 Univers 90 2-15 Puffs ity of mcg/actuati 00:00: every 4 [place] on inhaler 00 (four) Medical hours as Branch needed for Wheezing or Shortness of Breath. butalbital- 2021-05 Yes [id number] 1{tbl} Take 1 Univers acetaminoph 2-15 tablet by ity of en-caff 00:00: mouth [place] 50-325-40 00 every 4 Medical mg tablet (four) Branch hours as needed (headache) . ondansetron 2021-05 Yes [id number] 1-2 U nivers 4 mg tablet 2-15 tablets ity o f 00:00: every 8 [place] 00 hours as Medical needed for Branch nausea benzonatate 2021-05 Yes [id number] 200mg Take 1 Univers 200 mg 2-15 capsule by ity of capsule 00:00: mouth 3 [place] 00 (three) Medical times Branch daily as needed for Cough. albuterol 2021-05 Yes [id number] 2{puff} Inhale 2 Univers 90 2-15 Puffs ity of mcg/actuati 00:00: every 4 [place] on inhaler 00 (four) Medical hours as Branch needed for Wheezing or Shortness of Breath. butalbital- 2021-05 Yes [id number] 1{tbl} Take 1 Univers acetaminoph 2-15 tablet by ity of en-caff 00:00: mouth [place] 50-325-40 00 every 4 Medical mg tablet (four) Branch hours as needed (headache) . ondansetron 2021-05 Yes [id number] 1-2 U nivers 4 mg tablet 2-15 tablets ity o f 00:00: every 8 [place] 00 hours as Medical needed for Branch nausea benzonatate 2021-05 Yes [id number] 200mg Take 1 Univers 200 mg 2-15 capsule by ity of capsule 00:00: mouth 3 [place] 00 (three) Medical times Branch daily as needed for Cough. albuterol 2021-05 Yes [id number] 2{puff} Inhale 2 Univers 90 2-15 Puffs ity of mcg/actuati 00:00: every 4 [place] on inhaler 00 (four) Medical hours as Branch needed for Wheezing or Shortness of Breath. butalbital- 2021-05 Yes [id number] 1{tbl} Take 1 Univers acetaminoph 2-15 tablet by ity of en-caff 00:00: mouth [place] 50-325-40 00 every 4 Medical mg tablet (four) Branch hours as needed (headache) . ondansetron 2021-05 Yes [id number] 1-2 U nivers 4 mg tablet 2-15 tablets ity o f 00:00: every 8 [place] 00 hours as Medical needed for Branch nausea benzonatate 2021-05 Yes [id number] 200mg Take 1 Univers 200 mg 2-15 capsule by ity of capsule 00:00: mouth 3 [place] 00 (three) Medical times Branch daily as needed for Cough. albuterol 2021-05 Yes [id number] 2{puff} Inhale 2 Univers 90 2-15 Puffs ity of mcg/actuati 00:00: every 4 [place] on inhaler 00 (four) Medical hours as Branch needed for Wheezing or Shortness of Breath. butalbital- 2021-05 Yes [id number] 1{tbl} Take 1 Univers acetaminoph 2-15 tablet by ity of en-caff 00:00: mouth [place] 50-325-40 00 every 4 Medical mg tablet (four) Branch hours as needed (headache) . ondansetron 2021-05 Yes [id number] 1-2 U nivers 4 mg tablet 2-15 tablets ity o f 00:00: every 8 [place] 00 hours as Medical needed for Branch nausea benzonatate 2021-05 Yes [id number] 200mg Take 1 Univers 200 mg 2-15 capsule by ity of capsule 00:00: mouth 3 [place] 00 (three) Medical times Branch daily as needed for Cough. albuterol 2021-05 Yes [id number] 2{puff} Inhale 2 Univers 90 2-15 Puffs ity of mcg/actuati 00:00: every 4 [place] on inhaler 00 (four) Medical hours as Branch needed for Wheezing or Shortness of Breath. butalbital- 2021-05 Yes [id number] 1{tbl} Take 1 Univers acetaminoph 2-15 tablet by ity of en-caff 00:00: mouth [place] 50-325-40 00 every 4 Medical mg tablet (four) Branch hours as needed (headache) . ondansetron 2021-05 Yes [id number] 1-2 U nivers 4 mg tablet 2-15 tablets ity o f 00:00: every 8 [place] 00 hours as Medical needed for Branch nausea benzonatate 2021-05 Yes [id number] 200mg Take 1 Univers 200 mg 2-15 capsule by ity of capsule 00:00: mouth 3 [place] 00 (three) Medical times Branch daily as needed for Cough. albuterol 2021-05 Yes [id number] 2{puff} Inhale 2 Univers 90 2-15 Puffs ity of mcg/actuati 00:00: every 4 [place] on inhaler 00 (four) Medical hours as Branch needed for Wheezing or Shortness of Breath. butalbital- 2021-05 Yes [id number] 1{tbl} Take 1 Univers acetaminoph 2-15 tablet by ity of en-caff 00:00: mouth [place] 50-325-40 00 every 4 Medical mg tablet (four) Branch hours as needed (headache) . nirmatrelvi 2021-05- No [id number] 2{tbl} Take 2 Univers r-ritonavir 2-15 12-21 tablets by i ty of (PAXLOVID, 00:00: 05:59 mouth in [place] EUA,) 300 00 :00 the Medical mg (150 mg morning Branch x 2)-100 mg and 2 tablet tablets in the evening. Do all this for 5 days. nirmatrelvi 2021-05- No [id number] 2{tbl} Take 2 Univers r-ritonavir 2-15 12-21 tablets by i ty of (PAXLOVID, 00:00: 05:59 mouth in [place] EUA,) 300 00 :00 the Medical mg (150 mg morning Branch x 2)-100 mg and 2 tablet tablets in the evening. Do all this for 5 days. nirmatrelvi 2021-05- No [id number] 2{tbl} Take 2 Univers r-ritonavir 2-15 12-21 tablets by i ty of (PAXLOVID, 00:00: 05:59 mouth in [place] EUA,) 300 00 :00 the Medical mg (150 mg morning Branch x 2)-100 mg and 2 tablet tablets in the evening. Do all this for 5 days. nirmatrelvi 2021-05- No [id number] 2{tbl} Take 2 Univers r-ritonavir 2-15 - tablets by i ty of (PAXLOVID, 00:00: 05:59 mouth in [place] EUA,) 300 00 :00 the Medical mg (150 mg morning Branch x 2)-100 mg and 2 tablet tablets in the evening. Do all this for 5 days. ondansetron 2021-05- No 4mg 4 mg, Univ ers (ZOFRAN-ODT 2-04-22 Oral, ity of ) 22:45: 21:53 ONCE, 1 [place] disintegrat 00 :00 dose, On Medi porfirio ing tablet [place] Branch 4 mg 04/22/22 at 1645, Routine amoxicillin 2021-05 Yes [id number] 1{tbl} Take 1 Univers -clavulanat 2- [id number] tablet by i ty of e 875-125 00:00: mouth [place] mg per 00 every 12 Medical tablet (twelve) Branch hours. ondansetron 2021-05 Yes [id number] 4mg Take 1 Univers 4 mg 2- [id number] tablet by ity of disintegrat 00:00: mouth [place] ing tablet 00 every 8 Medica l (eight) Branch hours as needed for Nausea and Vomiting (N/V). amoxicillin 2021-05 Yes [id number] 1{tbl} Take 1 Univers -clavulanat 2- [id number] tablet by i ty of e 875-125 00:00: mouth [place] mg per 00 every 12 Medical tablet (twelve) Branch hours. ondansetron 2021-05 Yes [id number] 4mg Take 1 Univers 4 mg 2-01 [id number] tablet by ity of disintegrat 00:00: mouth [place] ing tablet 00 every 8 Medica l (eight) Branch hours as needed for Nausea and Vomiting (N/V). amoxicillin 2021-05 Yes [id number] 1{tbl} Take 1 Univers -clavulanat 2-01 [id number] tablet by i ty of e 875-125 00:00: mouth [place] mg per 00 every 12 Medical tablet (twelve) Branch hours. ondansetron 2021-05 Yes [id number] 4mg Take 1 Univers 4 mg 2-01 [id number] tablet by ity of disintegrat 00:00: mouth [place] ing tablet 00 every 8 Medica l (eight) Branch hours as needed for Nausea and Vomiting (N/V). amoxicillin 2021-05 Yes [id number] 1{tbl} Take 1 Univers -clavulanat 2-01 [id number] tablet by i ty of e 875-125 00:00: mouth [place] mg per 00 every 12 Medical tablet (twelve) Branch hours. ondansetron 2021-05 Yes [id number] 4mg Take 1 Univers 4 mg 2-01 [id number] tablet by ity of disintegrat 00:00: mouth [place] ing tablet 00 every 8 Medica l (eight) Branch hours as needed for Nausea and Vomiting (N/V). amoxicillin 2021-05 Yes [id number] 1{tbl} Take 1 Univers -clavulanat 2-01 [id number] tablet by i ty of e 875-125 00:00: mouth [place] mg per 00 every 12 Medical tablet (twelve) Branch hours. ondansetron 2021-05 Yes [id number] 4mg Take 1 Univers 4 mg 2- [id number] tablet by ity of disintegrat 00:00: mouth [place] ing tablet 00 every 8 Medica l (eight) Branch hours as needed for Nausea and Vomiting (N/V). amoxicillin 2021-05 Yes [id number] 1{tbl} Take 1 Univers -clavulanat 2-01 [id number] tablet by i ty of e 875-125 00:00: mouth [place] mg per 00 every 12 Medical tablet (twelve) Branch hours. ondansetron 2021-05 Yes [id number] 4mg Take 1 Univers 4 mg 2-01 [id number] tablet by ity of disintegrat 00:00: mouth [place] ing tablet 00 every 8 Medica l (eight) Branch hours as needed for Nausea and Vomiting (N/V). amoxicillin 2021-05 Yes [id number] 1{tbl} Take 1 Univers -clavulanat 2-01 [id number] tablet by i ty of e 875-125 00:00: mouth [place] mg per 00 every 12 Medical tablet (twelve) Branch hours. ondansetron 2021-05 Yes [id number] 4mg Take 1 Univers 4 mg 2-01 [id number] tablet by ity of disintegrat 00:00: mouth [place] ing tablet 00 every 8 Medica l (eight) Branch hours as needed for Nausea and Vomiting (N/V). amoxicillin 2021-05 Yes [id number] 1{tbl} Take 1 Univers -clavulanat 06-23 [id number] tablet by i ty of e 875-125 00:00: mouth [place] mg per 00 every 12 Medical tablet (twelve) Branch hours. ondansetron 2021-05 Yes [id number] 4mg Take 1 Univers 4 mg 06-23 [id number] tablet by ity of disintegrat 00:00: mouth [place] ing tablet 00 every 8 Medica l (eight) Branch hours as needed for Nausea and Vomiting (N/V). zoster 2021-05- No [id number] .5mL 0.5 mL by Univers vaccine, 0-14 10-15 9104 Intramuscu ity of recombinant 00:00: 04:59 lar route [place] (SHINGRIX, 00 :00 once now Medic al PF,) for 1 Branch injection dose. And repeat in 2-6 months zoster 2021-05- No [id number] .5mL 0.5 mL by Univers vaccine, 0-14 10-15 9104 Intramuscu ity of recombinant 00:00: 04:59 lar route [place] (SHINGRIX, 00 :00 once now Medic al PF,) for 1 Branch injection dose. And repeat in 2-6 months zoster 2021-05- No [id number] .5mL 0.5 mL by Univers vaccine, 0-14 [...] 1 mg tablet 19:28: at [place] [address] bedtime. Medical Branch traZODone 2021-0 Yes 50mg Take 50 mg Un matt 100 mg 9-27 by mouth ity of tablet 19:28: at [place] [address] bedtime. Medical Branch hydralAZINE 2021-0 Yes 25mg [...] 100 mg 04 (two) Medical tablet times [place] daily. amLODIPine 2021-0 Yes 10mg Take 10 mg U nivers (NORVASC) 9-27 by mouth ity of 10 mg 19:28: daily. [place] tablet 04 Medical Branch clonazePAM 2021-0 Yes 1mg Take 1 mg Un matt (KLONOPIN) 9-27 by mouth ity o f 1 mg tablet 19:28: at [place] [address] bedtime. Medical Branch traZODone 2021-0 Yes 50mg Take 50 mg Un matt 100 mg 9-27 by mouth ity of tablet 19:28: at [place] [address] bedtime. Medical Branch hydralAZINE 2021-0 Yes 25mg [...] 1 mg tablet 19:28: at [place] [address] bedtime. Medical Branch traZODone 2021-0 Yes 50mg Take 50 mg Un matt 100 mg 9-27 by mouth ity of tablet 19:28: at [place] [address] bedtime. Medical Branch hydralAZINE 2021-0 Yes 25mg [...] 1 mg tablet 19:28: at [place] [address] bedtime. Medical Branch traZODone 2021-0 Yes 50mg Take 50 mg Un matt 100 mg 9-27 by mouth ity of tablet 19:28: at [place] [address] bedtime. Medical Branch hydralAZINE 2021-0 Yes 25mg [...] 1 mg tablet 19:28: at [place] [address] bedtime. Medical Branch traZODone 2021-0 Yes 50mg Take 50 mg Un matt 100 mg 9- by mouth ity of tablet 19:28: at [place] [address] bedtime. Medical Branch hydralAZINE 2021-0 Yes 25mg [...] 1 mg tablet 19:28: at [place] [address] bedtime. Medical Branch traZODone 2022-0 Yes 50mg Take 50 mg Un matt 100 mg 9-27 by mouth ity of tablet 19:28: at [place] [address] bedtime. Medical Branch hydralAZINE 2-0 Yes 25mg [...] 1 mg tablet 19:28: at [place] [address] bedtime. Medical Branch traZODone 2-0 Yes 50mg Take 50 mg Un matt 100 mg 9-27 by mouth ity of tablet 19:28: at [place] [address] bedtime. Medical Branch hydralAZINE 2021-0 Yes 25mg [...] 1 mg tablet 19:28: at [place] [address] bedtime. Medical Branch traZODone 2022-0 Yes 50mg Take 50 mg Un matt 100 mg 9-27 by mouth ity of tablet 19:28: at [place] [address] bedtime. Medical Branch hydralAZINE 2-0 Yes 25mg [...] 1 mg tablet 19:28: at [place] [address] bedtime. Medical Branch traZODone 2-0 Yes 50mg Take 50 mg Un matt 100 mg 9-27 by mouth ity of tablet 19:28: at [place] [address] bedtime. Medical Branch hydralAZINE 2-0 Yes 25mg [...] 1 mg tablet 19:28: at [place] [address] bedtime. Medical Branch traZODone 2021-0 Yes 50mg Take 50 mg Un matt 100 mg 9-27 by mouth ity of tablet 19:28: at [place] [address] bedtime. Medical Branch hydralAZINE 2021-0 Yes 25mg [...] 1 mg tablet 19:28: at [place] [address] bedtime. Medical Branch traZODone 2021-0 Yes 50mg Take 50 mg Un matt 100 mg 9-27 by mouth ity of tablet 19:28: at [place] [address] bedtime. Medical Branch hydralAZINE 2021-0 Yes 25mg [...] 1 mg tablet 19:28: at [place] [address] bedtime. Medical Branch traZODone 2-0 Yes 50mg Take 50 mg Un matt 100 mg 9-27 by mouth ity of tablet 19:28: at [place] [address] bedtime. Medical Branch hydralAZINE 2-0 Yes 25mg [...] 1 mg tablet 19:28: at [place] [address] bedtime. Medical Branch traZODone 2021-0 Yes 50mg Take 50 mg Un matt 100 mg 9-27 by mouth ity of tablet 19:28: at [place] [address] bedtime. Medical Branch hydralAZINE 2021-0 Yes 25mg [...] 1 mg tablet 19:28: at [place] [address] bedtime. Medical Branch traZODone 2021-0 Yes 50mg Take 50 mg Un matt 100 mg 9-27 by mouth ity of tablet 19:28: at [place] [address] bedtime. Medical Branch hydralAZINE 2021-0 Yes 25mg [...] mouth ity of 10 mg 19:28: daily. [place] tablet 04 Medical Branch clonazePAM 2021-0 Yes 1mg Take 1 mg Un matt (KLONOPIN) 9-27 by mouth ity o f 1 mg tablet 19:28: at [place] [address] bedtime. Medical Branch traZODone 2021-0 Yes 50mg Take 50 mg Un matt 100 mg 9-27 by mouth ity of tablet 19:28: at [place] [address] bedtime. Medical Branch hydralAZINE 2021-0 Yes 25mg [...] 1 mg tablet 19:28: at [place] [address] bedtime. Medical Branch traZODone Yes 50mg Take 50 mg Un matt 100 mg 02-16 by mouth ity of tablet 19:28: at [place] [address] bedtime. Medical Branch cefpodoxime 2021- No [id number] 200mg Take 1 Univers 200 mg 02-16 tablet by ity of tablet 00:00: 04:59 mouth in [place] 00 :00 the Medical morning Branch and 1 tablet in the evening. Do all this for 3 days. cefpodoxime 2021- No [id number] 200mg Take 1 Univers 200 mg 02-16 tablet by ity of tablet 00:00: 04:59 mouth in [place] 00 :00 the Medical morning Branch and 1 tablet in the evening. Do all this for 3 days. haloperidol 2021- No 2mg 2 mg, Slow Univers lactate 02-15 IV Push, ity of (HALDOL) 09:00: 09:12 ONCE, 1 [place] injection 2 00 :00 dose, On Medi porfirio mg Mon Branch 02/15/22 at 0400, Routine hydroCHLORO Yes 25mg 25 mg, Univ ers thiazide 9-25 Oral, ity of (ESIDRIX) 14:00: DAILY, [place] capsule 25 00 First dose Med ical mg on [place] Branch 02/14/22 at 0900, Until Discontinu ed, Routine butalbital- Yes 1{tbl} 1 tablet, Univers acetaminoph - Oral, ity of en-caff 18:46: Q6HPRN, [place] [...] (MYCOLOG) 19:00: dose on [place] cream 00 [facility] Medical 02/11/22 at Branch 1400, Until Discontinu ed, Routine busPIRone 202-0 Yes 30mg 30 mg, Univer s (BUSPAR) 02-11 Oral, BID, ity o f tablet 30 18:00: First dose [place] mg 00 on [facility] Medical 02/11/22 at Branch 1300, Until Discontinu ed, Routine raltegravir 2021-0 Yes 400mg 400 mg, Un matt (ISENTRESS) 02-11 Oral, BID, it y of tablet 400 18:00: First dose [place] mg 00 on [facility] Medical 02/11/22 at Branch 1300, Until Discontinu ed, JOE metoprolol 2021-0 Yes 100mg 100 mg, Uni vers tartrate 02-11 Oral, BID, ity o f (LOPRESSOR) 18:00: First dose [place] tablet 100 00 on [facility] mg 02/11/22 at Branch 1300, Until Discontinu ed, Routine lisinopriL 2021-0 Yes 40mg 40 mg, Unive rs (PRINIVIL,Z 02-11 Oral, BID, it y of ESTRIL) 18:00: First dose [place] tablet 40 00 on [facility] mg 02/11/22 at Branch 1300, Until Discontinu ed, Routine emtricitabi 2021-0 Yes 1{tbl} 1 [facility], [facility] Oral, ity of r alafen 18:00: DAILY, [place] (DESCOVY) 00 First dose Medi porfirio tablet 1 on [facility] tablet 02/11/22 at 1300, Until Discontinu ed, Routine ipratropium 2021-0 Yes .5mg 0.5 mg, Uni vers (ATROVENT) 02-11 Inhalation ity of 0.02 % 17:57: , MERY, [place] nebulizer 10 Starting Medica l solution on [facility] 0.5 mg 02/11/22 at 1257, [...] Medical (after Branch last modificati on) on [facility] 02/11/22 at 1230, Until Discontinu ed, Routine HYDROcodone 2021- No 1{tbl} 1 tablet, Univers -acetaminop 02-11 Oral, ity of hen (NORCO 14:11: 17:37 Q6HPRN, [place] as 5) 5-325 mg 03 :24 Starting Medi porfirio tablet 1 on [facility] tablet 02/11/22 at 0911, Until Tue02/12/22 at 1237, Routine, Pain (scale 7-10) melatonin Yes 3mg 3 mg, Univers (MELATIN) 02-11 Oral, ity of tablet 3 mg 14:08: QHSPRN, [place] 17 Starting Medical on [facility] 02/11/22 at 0908, Until Discontinu ed, Routine, Insomnia acetaminoph 2021- No 1{tbl} 1 tablet, Univers en-codeine 02-11 Oral, ity of (TYLENOL 14:06: 17:37 Q6HPN, [place] #3) 300-30 19 :24 Starting Medic al mg tablet 1 on [facility] tablet 02/11/22 at 0906, Until Tue02/12/22 at 1237, Routine, Pain (scale 4-6) sennosides- Yes 1{tbl} 1 tablet, Univers docusate 02-11 Oral, ity of sodium 14:06: QDAILYPRN, [place] (SENOKOT-S) 09 Starting Medi porfirio 8.6-50 mg on [facility] per tablet 02/11/22 at 1 tablet 0906, Until Discontinu ed, Routine, Constipati on ondansetron Yes 4mg 4 mg, Slow Univers (ZOFRAN 02-11 IV Push, ity of (PF)) 14:05: Q6HPRN, [place] injection 4 59 Starting Medi porfirio mg on [place] Branch 02/11/22 at 0905, Until Discontinu ed, Routine, Nausea and Vomiting (N/V) acetaminoph Yes 650mg 650 mg, Un matt en 02-11 Oral, ity of (TYLENOL) 14:04: Q6HPRN, [place] tablet 650 37 Starting Medic al mg [...] ity of ) 25 mg 09:10: daily. [place] tablet [address] [facility] amLODIPine 0 Yes 10mg Take 10 mg U nivers (NORVASC) 02-11 by mouth ity of 10 mg 09:10: daily. [place] tablet 54 [facility] Branch piperacilli 2021- No 3.375g 3.375 [...] of therapy: 72 hours iopamidol 2- No [id number] 60mL 60 mL, Univers (ISOVUE 02-11 Intravenou [...] 00 :00 dose, On Medi porfirio mg [facility] 02/11/22 at 0045, JOE acetaminoph 2021- No 975mg 975 mg, U nivers en 02-11 Oral, ity of (TYLENOL) 05:15: 04:19 ONCE, 1 [place] 975 00 :00 dose, On Medic al mg [facility] 02/11/22 at 0015, JOE emtricitabi 0 Yes [id number] Take one Univers ne-tenofovi 9-12 po daily ity of r alafen 00:00: [place] (DESCOVY) 00 Medical tablet Branch emtricitabi 0 Yes [id number] Take one Univers ne-tenofovi 9-12 po daily ity of r alafen 00:00: [place] (DESCOVY) Medical tablet Branch emtricitabi 0 Yes [id number] Take one Univers ne-tenofovi 9-12 po daily ity of r alafen 00:00: [place] (DESCOVY) 00 Medical tablet Branch emtricitabi 0 Yes [id number] Take one Univers ne-tenofovi 9-12 po daily ity of r alafen 00:00: [place] (DESCOVY) 00 Medical tablet Branch emtricitabi Yes [id number] Take one Univers ne-tenofovi 9-12 po daily ity of r alafen 00:00: [place] (DESCOVY) 00 Medical tablet Branch emtricita Yes [id number] Take one Univers ne-tenofovi 9-12 po daily ity of r alafen 00:00: [place] (DESCOVY) 00 Medical tablet Branch emtricita Yes [id number] Take one Univers ne-tenofovi 9-12 po daily ity of r alafen 00:00: [place] (DESCOVY) 00 Medical tablet Branch emtricita Yes [id number] Take one Univers ne-tenofovi 9-12 po daily ity of r alafen 00:00: [place] (DESCOVY) 00 Medical tablet Branch emtricita Yes [id number] Take one Univers ne-tenofovi 9-12 po daily ity of r alafen 00:00: [place] (DESCOVY) 00 Medical tablet [facility] Yes [id number] Take one Univers ne-tenofovi 9-12 po daily ity of r alafen 00:00: [place] (DESCOVY) 00 Medical tablet Branch [facility] Yes [id number] Take one Univers ne-tenofovi 9-12 po daily ity of r alafen 00:00: [place] (DESCOVY) 00 Medical tablet Branch emtricita Yes [id number] Take one Univers ne-tenofovi 9-12 po daily ity of r alafen 00:00: [place] (DESCOVY) 00 Medical tablet Branch emtricita Yes [id number] Take one Univers ne-tenofovi 9-12 po daily ity of r alafen 00:00: [place] (DESCOVY) 00 Medical tablet Branch emtricita Yes [id number] Take one Univers ne-tenofovi 9-12 po daily ity of r alafen 00:00: [place] (DESCOVY) 00 Medical tablet Branch emtricita Yes [id number] Take one Univers ne-tenofovi 9-12 po daily ity of r alafen 00:00: [place] (DESCOVY) 00 Medical tablet Branch emtricitabi 2021-0 Yes [id number] Take one Univers ne-tenofovi 9-12 po daily ity of r alafen 00:00: [place] (DESCOVY) Medical tablet Branch emtricitabi 2021-0 Yes [id number] Take one Univers ne-tenofovi 9-12 po daily ity of r alafen 00:00: [place] (DESCOVY) Medical tablet Branch naproxen 2021-0 Yes [id number] 500mg Take 1 U nivers (NAPROSYN) 7-24 tablet by ity of 500 mg 00:00: mouth in [place] tablet 00 the Medical morning Branch and 1 tablet in the evening. Take with meals. methocarbam 2021-0 Yes [id number] 500mg Take 1 Univers oL 500 mg 7-24 tablet by ity o f tablet 00:00: mouth 4 [place] [address] ([facility]) [facility] times [place] daily. naproxen 2021-0 Yes [id number] 500mg Take 1 U nivers (NAPROSYN) 7-24 tablet by ity of 500 mg 00:00: mouth in [place] tablet 00 the Medical morning Branch and 1 tablet in the evening. Take with meals. methocarbam 2021-0 Yes [id number] 500mg Take 1 Univers oL 500 mg 7-24 tablet by ity o f tablet 00:00: mouth 4 [place] ([facility]) [facility] times [place] daily. naproxen 2021-0 Yes [id number] 500mg Take 1 U nivers (NAPROSYN) 7-24 tablet by ity of 500 mg 00:00: mouth in [place] tablet 00 the Medical morning Branch and 1 tablet in the evening. Take with meals. methocarbam 2021-0 Yes [id number] 500mg Take 1 Univers oL 500 mg 7-24 tablet by ity o f tablet 00:00: mouth 4 [place] ([facility]) [facility] times [place] daily. naproxen 2021-0 2022- No [id number] 500mg Take 1 Univers (NAPROSYN) 7-24 10-14 tablet by ity of 500 mg 00:00: 00:00 mouth in [place] tablet 00 :00 the Medical morning Branch and 1 tablet in the evening. Take with meals. methocarbam 2021-0 2022- No [id number] 500mg Take 1 Univers oL 500 mg 7-24 10-14 tablet by ity of tablet 00:00: 00:00 mouth 4 [place] 00 :00 (four) Medical times Branch daily. naproxen 2021- No [id number] 500mg Take 1 Univers (NAPROSYN) 12-13 tablet by ity of 500 mg 00:00: 00:00 mouth in [place] tablet 00 :00 the Medical morning Branch and 1 tablet in the evening. Take with meals. methocarbam 2021- No [id number] 500mg Take 1 Univers oL 500 mg [...] daily. Branch traZODONE 2021- No Take by [facility] ers (DESYREL) 11-20 mouth at ity o f 10 mg/mL 09:10: 00:00 [place]time[place] oral 28 :00 Medical suspension Branch hydralAZINE Yes 25mg Take 25 mg Univers (APRESOLINE 11-20 by mouth ity of ) 25 mg 08:47: daily. [place] tablet 47 Medical Branch cephALEXin 2021- No [id number] 500mg Take 1 Univers (KEFLEX) 10-24 capsule [...] Indication s: acute pain buPROPion 0 Yes [id number] 150mg Take 1 U nivers XL 4-12 tablet by ity of (WELLBUTRIN 00:00: mouth [place] XL) 150 mg 00 daily. Medical 24 hr Branch tablet busPIRone 2021-0 Yes [id number] 30mg Take 1 Un matt 30 mg 4-12 tablet by ity of tablet 00:00: mouth 2 [place] 00 (two) Medical times Branch daily. SERTraline 2021-0 Yes [id number] 200mg Take 2 Univers 100 mg 4-12 tablets by ity of tablet 00:00: mouth [place] 00 daily. Medical Branch buPROPion 0 Yes [id number] 150mg Take 1 U nivers XL 4-12 tablet by ity of (WELLBUTRIN 00:00: mouth [place] XL) 150 mg 00 daily. Medical 24 hr Branch tablet busPIRone 2021-0 Yes [id number] 30mg Take 1 Un matt 30 mg 4-12 tablet by ity of tablet 00:00: mouth 2 [place] 00 (two) Medical times Branch daily. SERTraline 2021-0 Yes [id number] 200mg Take 2 Univers 100 mg 4-12 tablets by ity of tablet 00:00: mouth [place] 00 daily. Medical Branch buPROPion 2021-0 Yes [id number] 150mg Take 1 U nivers XL 4-12 tablet by ity of (WELLBUTRIN 00:00: mouth [place] XL) 150 mg 00 daily. Medical 24 hr Branch tablet busPIRone 2021-0 Yes [id number] 30mg Take 1 Un matt 30 mg 4-12 tablet by ity of tablet 00:00: mouth 2 [place] 00 (two) Medical times Branch daily. SERTraline 2021-0 Yes [id number] 200mg Take 2 Univers 100 mg 4-12 tablets by ity of tablet 00:00: mouth [place] 00 daily. Medical Branch buPROPion 2021-0 Yes [id number] 150mg Take 1 U nivers XL 4-12 tablet by ity of (WELLBUTRIN 00:00: mouth [place] XL) 150 mg 00 daily. Medical 24 hr Branch tablet busPIRone 2021-0 Yes [id number] 30mg Take 1 Un matt 30 mg 4-12 tablet by ity of tablet 00:00: mouth 2 [place] 00 (two) Medical times Branch daily. SERTraline 0 Yes [id number] 200mg Take 2 Univers 100 mg 4-12 tablets by ity of tablet 00:00: mouth [place] 00 daily. Medical Branch buPROPion 0 Yes [id number] 150mg Take 1 U nivers XL 4-12 tablet by ity of (WELLBUTRIN 00:00: mouth [place] XL) 150 mg 00 daily. Medical 24 hr Branch tablet busPIRone 2021-0 Yes [id number] 30mg Take 1 Un matt 30 mg 4-12 tablet by ity of tablet 00:00: mouth 2 (two) Medical times Branch daily. SERTraline 0 Yes [id number] 200mg Take 2 Univers 100 mg 4-12 tablets by ity of tablet 00:00: mouth [place] 00 daily. Medical Branch buPROPion 0 Yes [id number] 150mg Take 1 U nivers XL 4-12 tablet by ity of (WELLBUTRIN 00:00: mouth [place] XL) 150 mg 00 daily. Medical 24 hr Branch tablet busPIRone 2021-0 Yes [id number] 30mg Take 1 Un matt 30 mg 4-12 tablet by ity of tablet 00:00: mouth 2 00 (two) Medical times Branch daily. SERTraline 2021-0 Yes [id number] 200mg Take 2 Univers 100 mg 4-12 tablets by ity of tablet 00:00: mouth [place] 00 daily. Medical Branch buPROPion 2021-0 Yes [id number] 150mg Take 1 U nivers XL 4-12 tablet by ity of (WELLBUTRIN 00:00: mouth [place] XL) 150 mg 00 daily. Medical 24 hr Branch tablet busPIRone 2021-0 Yes [id number] 30mg Take 1 Un matt 30 mg 4-12 tablet by ity of tablet 00:00: mouth 2 00 (two) Medical times Branch daily. SERTraline 2021-0 Yes [id number] 200mg Take 2 Univers 100 mg 4-12 tablets by ity of tablet 00:00: mouth [place] 00 daily. Medical Branch buPROPion 2021-0 Yes [id number] 150mg Take 1 U nivers XL 4-12 tablet by ity of (WELLBUTRIN 00:00: mouth [place] XL) 150 mg 00 daily. Medical 24 hr Branch tablet busPIRone 2021-0 Yes [id number] 30mg Take 1 Un matt 30 mg 4-12 tablet by ity of tablet 00:00: mouth 2 [place] 00 (two) Medical times Branch daily. SERTraline 2021-0 Yes [id number] 200mg Take 2 Univers 100 mg 4-12 tablets by ity of tablet 00:00: mouth [place] 00 daily. Medical Branch buPROPion 2021-0 Yes [id number] 150mg Take 1 U nivers XL 4-12 tablet by ity of (WELLBUTRIN 00:00: mouth [place] XL) 150 mg 00 daily. Medical 24 hr Branch tablet busPIRone 2021-0 Yes [id number] 30mg Take 1 Un matt 30 mg 4-12 tablet by ity of tablet 00:00: mouth 2 [place] (two) Medical times Branch daily. SERTraline 2021-0 Yes [id number] 200mg Take 2 Univers 100 mg 4-12 tablets by ity of tablet 00:00: mouth [place] 00 daily. Medical Branch buPROPion 2021-0 Yes [id number] 150mg Take 1 U nivers XL 4-12 tablet by ity of (WELLBUTRIN 00:00: mouth [place] XL) 150 mg 00 daily. Medical 24 hr Branch tablet busPIRone 2021-0 Yes [id number] 30mg Take 1 Un matt 30 mg 4-12 tablet by ity of tablet 00:00: mouth 2 [place] 00 (two) Medical times Branch daily. SERTraline 2021-0 Yes [id number] 200mg Take 2 Univers 100 mg 4-12 tablets by ity of tablet 00:00: mouth [place] 00 daily. Medical Branch buPROPion 2021-0 Yes [id number] 150mg Take 1 U nivers XL 4-12 tablet by ity of (WELLBUTRIN 00:00: mouth [place] XL) 150 mg 00 daily. Medical 24 hr Branch tablet busPIRone 2021-0 Yes [id number] 30mg Take 1 Un matt 30 mg 4-12 tablet by ity of tablet 00:00: mouth 2 [place] 00 (two) Medical times Branch daily. SERTraline 2021-0 Yes [id number] 200mg Take 2 Univers 100 mg 4-12 tablets by ity of tablet 00:00: mouth [place] 00 daily. Medical Branch buPROPion 2021-0 Yes [id number] 150mg Take 1 U nivers XL 4-12 tablet by ity of (WELLBUTRIN 00:00: mouth [place] XL) 150 mg 00 daily. Medical 24 hr Branch tablet busPIRone 2021-0 Yes [id number] 30mg Take 1 Un matt 30 mg 4-12 tablet by ity of tablet 00:00: mouth 2 [place] 00 (two) Medical times Branch daily. SERTraline 2021-0 Yes [id number] 200mg Take 2 Univers 100 mg 4-12 tablets by ity of tablet 00:00: mouth [place] 00 daily. Medical Branch buPROPion 2021-0 Yes [id number] 150mg Take 1 U nivers XL 4-12 tablet by ity of (WELLBUTRIN 00:00: mouth [place] XL) 150 mg 00 daily. Medical 24 hr Branch tablet busPIRone 2021-0 Yes [id number] 30mg Take 1 Un matt 30 mg 4-12 tablet by ity of tablet 00:00: mouth 2 00 (two) Medical times Branch daily. SERTraline 2021-0 Yes [id number] 200mg Take 2 Univers 100 mg 4-12 tablets by ity of tablet 00:00: mouth [place] 00 daily. Medical Branch buPROPion 2021-0 Yes [id number] 150mg Take 1 U nivers XL 4-12 tablet by ity of (WELLBUTRIN 00:00: mouth [place] XL) 150 mg 00 daily. Medical 24 hr Branch tablet busPIRone 2021-0 Yes [id number] 30mg Take 1 Un matt 30 mg 4-12 tablet by ity of tablet 00:00: mouth 2 [place] 00 (two) Medical times Branch daily. SERTraline 2021-0 Yes [id number] 200mg Take 2 Univers 100 mg 4-12 tablets by ity of tablet 00:00: mouth [place] 00 daily. Medical Branch buPROPion 2021-0 Yes [id number] 150mg Take 1 U nivers XL 4-12 tablet by ity of (WELLBUTRIN 00:00: mouth [place] XL) 150 mg 00 daily. Medical 24 hr Branch tablet busPIRone 2021-0 Yes [id number] 30mg Take 1 Un matt 30 mg 4-12 tablet by ity of tablet 00:00: mouth 2 [place] 00 (two) Medical times Branch daily. SERTraline 2021-0 Yes [id number] 200mg Take 2 Univers 100 mg 4-12 tablets by ity of tablet 00:00: mouth [place] 00 daily. Medical Branch buPROPion 2021-0 Yes [id number] 150mg Take 1 U nivers XL 4-12 tablet by ity of (WELLBUTRIN 00:00: mouth [place] XL) 150 mg 00 daily. Medical 24 hr Branch tablet busPIRone 2021-0 Yes [id number] 30mg Take 1 Un matt 30 mg 4-12 tablet by ity of tablet 00:00: mouth 2 [place] 00 (two) Medical times Branch daily. SERTraline 0 Yes [id number] 200mg Take 2 Univers 100 mg 4-12 tablets by ity of tablet 00:00: mouth [place] 00 daily. Medical Branch buPROPion 2021-0 Yes [id number] 150mg Take 1 U nivers XL 4-12 tablet by ity of (WELLBUTRIN 00:00: mouth [place] XL) 150 mg 00 daily. Medical 24 hr Branch tablet busPIRone 2021-0 Yes [id number] 30mg Take 1 Un matt 30 mg 4-12 tablet by ity of tablet 00:00: mouth 2 [place] 00 (two) Medical times Branch daily. SERTraline 2021-0 Yes [id number] 200mg Take 2 [facility] 100 mg 4-12 tablets by ity of tablet 00:00: mouth [place] 00 daily. Medical Branch buPROPion 2021-0 Yes [id number] 150mg Take 1 U nivers XL 4-12 tablet by ity of (WELLBUTRIN 00:00: mouth [place] XL) 150 mg 00 daily. Medical 24 hr Branch tablet busPIRone 2021-0 Yes [id number] 30mg Take 1 Un matt 30 mg 4-12 tablet by ity of tablet 00:00: mouth 2 [place] 00 (two) Medical times Branch daily. SERTraline 2021-0 Yes [id number] 200mg Take 2 Univers 100 mg 4-12 tablets by ity of tablet 00:00: mouth [place] 00 daily. Medical Branch raltegravir 2022-0 Yes [id number] 400mg Take 1 Univers (ISENTRESS) 3-28 tablet by ity of 400 mg 00:00: mouth 2 [place] tablet 00 (two) Medical times Branch daily. raltegravir 2-0 Yes [id number] 400mg Take 1 Univers (ISENTRESS) 3-28 tablet by ity of 400 mg 00:00: mouth 2 [place] tablet 00 (two) Medical times Branch daily. raltegravir 2-0 Yes [id number] 400mg Take 1 Univers (ISENTRESS) 3-28 tablet by ity of 400 mg 00:00: mouth 2 [place] tablet 00 (two) Medical times Branch daily. raltegravir 2021-0 Yes [id number] 400mg Take 1 Univers (ISENTRESS) 3-28 tablet by ity of 400 mg 00:00: mouth 2 [place] tablet 00 (two) Medical times Branch daily. raltegravir 2021-0 Yes [id number] 400mg Take 1 Univers (ISENTRESS) 3-28 tablet by ity of 400 mg 00:00: mouth 2 [place] tablet 00 (two) Medical times Branch daily. raltegravir 2021-0 Yes [id number] 400mg Take 1 Univers (ISENTRESS) 3-28 tablet by ity of 400 mg 00:00: mouth 2 [place] tablet 00 (two) Medical times Branch daily. raltegravir 2021-0 Yes [id number] 400mg Take 1 Univers (ISENTRESS) 3-28 tablet by ity of 400 mg 00:00: mouth 2 [place] tablet 00 (two) Medical times Branch daily. raltegravir 2-0 Yes [id number] 400mg Take 1 Univers (ISENTRESS) 3-28 tablet by ity of 400 mg 00:00: mouth 2 [place] tablet 00 (two) Medical times Branch daily. raltegravir 2-0 Yes [id number] 400mg Take 1 Univers (ISENTRESS) 3-28 tablet by ity of 400 mg 00:00: mouth 2 [place] tablet 00 (two) Medical times Branch daily. raltegravir 2-0 Yes [id number] 400mg Take 1 Univers (ISENTRESS) 3-28 tablet by ity of 400 mg 00:00: mouth 2 [place] tablet 00 (two) Medical times Branch daily. raltegravir 2-0 Yes [id number] 400mg Take 1 Univers (ISENTRESS) 3-28 tablet by ity of 400 mg 00:00: mouth 2 [place] tablet 00 (two) Medical times Branch daily. raltegravir 2021-0 Yes [id number] 400mg Take 1 Univers (ISENTRESS) 3-28 tablet by ity of 400 mg 00:00: mouth 2 [place] tablet 00 (two) Medical times Branch daily. raltegravir 2021-0 Yes [id number] 400mg Take 1 Univers (ISENTRESS) 3-28 tablet by ity of 400 mg 00:00: mouth 2 [place] tablet 00 (two) Medical times Branch daily. raltegravir 2021-0 Yes [id number] 400mg Take 1 Univers (ISENTRESS) 3-28 tablet by ity of 400 mg 00:00: mouth 2 [place] tablet 00 (two) Medical times Branch daily. raltegravir 2021-0 Yes [id number] 400mg Take 1 Univers (ISENTRESS) 3-28 tablet by ity of 400 mg 00:00: mouth 2 [place] tablet 00 (two) Medical times Branch daily. raltegravir 2021-0 Yes [id number] 400mg Take 1 Univers (ISENTRESS) 3-28 tablet by ity of 400 mg 00:00: mouth 2 [place] tablet 00 (two) Medical times Branch daily. raltegravir 2021-0 Yes [id number] 400mg Take 1 Univers (ISENTRESS) 3-28 tablet by ity of 400 mg 00:00: mouth 2 [place] tablet 00 (two) Medical times Branch daily. raltegravir 2021-0 Yes [id number] 400mg Take 1 Univers (ISENTRESS) 3-28 tablet by ity of 400 mg 00:00: mouth 2 [place] tablet 00 (two) Medical times Branch daily. LORazepam 1 2021-0 2021- No [id number] 1mg Take 1 Univers mg tablet 3-21 [...] times a tablet day. emtricitabi 202- No [id number] Take one [facility] ne-tenofovi -20 09-12 po daily ity of r alafen 00:00: 00:00 [place] (DESCOVY) 00 :00 Medical tablet Branch metoprolol Yes [id number] Take 1 [place] tartrate 7-26 tablet Health (Lopressor) 00:00: (100 mg 100 MG 00 total) by tablet mouth 2 (two) times a day AND 0.5 tablets (50 mg total) every night. metoprolol Yes [id number] Take 1 [place] tartrate 7-26 tablet Health [...] (affected area in groin) hydrALAZINE Yes 50mg Q.[id number] Take 50 mg [facility] (APRESOLINE 7-19 [id number] [facility] mouth [facility] ) 50 MG [...] (affected area in groin) hydrALAZINE Yes 50mg Q.[id number] Take 50 mg [facility] (APRESOLINE 7-19 [id number] [address] mouth [facility] ) 50 MG [...] (affected area in groin) hydrALAZINE Yes 50mg Q.[id number] Take 50 mg [facility] (APRESOLINE 7-19 [id number] [address] mouth [facility] ) 50 MG [...] area in groin) hydrALAZINE 0 Yes 50mg Q.[id number] Take 50 mg [facility] (APRESOLINE 7-19 [id number] [facility] mouth [facility] ) 50 MG [...] area in groin) hydrALAZINE 0 Yes 50mg Q.[id number] Take 50 mg [facility] (APRESOLINE 7-19 [id number] mouth [facility] ) 50 MG [...] (affected area in groin) hydrALAZINE Yes 50mg Q.[id number] Take 50 mg [facility] (APRESOLINE 7-19 [id number] [address] mouth [facility] ) 50 MG [...] (affected area in groin) hydrALAZINE Yes 50mg Q.[id number] Take 50 mg [facility] (APRESOLINE 7-19 [id number] [address] mouth [facility] ) 50 MG [...] area in groin) hydrALAZINE 0 Yes 50mg Q.[id number] Take 50 mg [facility] (APRESOLINE 7-[id number] mouth [facility] ) 50 MG [...] (affected area in groin) hydrALAZINE Yes 50mg Q.[id number] Take 50 mg [facility] (APRESOLINE 7-19 [id number] [address] mouth [facility] ) 50 MG [...] (affected area in groin) hydrALAZINE Yes 50mg Q.[id number] Take 50 mg [facility] (APRESOLINE 7-19 [id number] by mouth 3 [facility] ) 50 MG [...] area in groin) hydrALAZINE 0 Yes 50mg Q.[id number] Take 50 mg [facility] (APRESOLINE 7-19 [id number] mouth [facility] ) 50 MG [...] (affected area in groin) hydrALAZINE Yes 50mg Q.[id number] Take 50 mg [facility] (APRESOLINE 7-19 [id number] mouth [facility] ) 50 MG [...] (affected area in groin) hydrALAZINE Yes 50mg Q.[id number] Take 50 mg [facility] (APRESOLINE 7-19 [id number] [address] mouth [facility] ) 50 MG [...] (affected area in groin) hydrALAZINE Yes 50mg Q.[id number] Take 50 mg [facility] (APRESOLINE 7-19 [id number] mouth [facility] ) 50 MG [...] area in groin) hydrALAZINE 0 Yes 50mg Q.[id number] Take 50 mg [facility] (APRESOLINE 7-[id number] mouth [facility] ) 50 MG [...] (affected area in groin) hydrALAZINE Yes 50mg Q.[id number] Take 50 mg [facility] (APRESOLINE 7-19 [id number] [address] mouth [facility] [address] ) 50 MG [...] area in groin) hydrALAZINE 0 Yes 50mg Q.[id number] Take 50 mg [facility] (APRESOLINE 7-19 [id number] [address] mouth [facility] ) 50 MG [...] area in groin) hydrALAZINE 0 Yes 50mg Q.[id number] Take 50 mg [facility] (APRESOLINE 7-19 [id number] [address] mouth [facility] ) 50 MG [...] (affected area in groin) hydrALAZINE Yes 50mg Q.[id number] Take 50 mg [facility] (APRESOLINE 7-19 [id number] by mouth 3 st ) 50 MG [...] area in groin) hydrALAZINE 0 Yes 50mg Q.[id number] Take 50 mg [facility] (APRESOLINE 7-19 [id number] [address] mouth [facility] ) 50 MG [...] area in groin) hydrALAZINE 2020-0 Yes 50mg Q.[id number] Take 50 mg [facility] (APRESOLINE 7-19 [id number] [address] mouth [facility] ) 50 MG [...] (affected area in groin) hydrALAZINE Yes 50mg Q.[id number] Take 50 mg [facility] (APRESOLINE 7-19 [id number] [address] mouth [facility] ) 50 MG [...] (affected area in groin) hydrALAZINE Yes 50mg Q.[id number] Take 50 mg [facility] (APRESOLINE 7-19 [id number] mouth [facility] ) 50 MG [...] area in groin) hydrALAZINE 0 Yes 50mg Q.[id number] Take 50 mg [facility] (APRESOLINE 7-[id number] mouth [address] ) 50 MG [...] (affected area in groin) hydrALAZINE Yes 50mg Q.[id number] Take 50 mg [facility] (APRESOLINE 7-[id number] mouth [facility] ) 50 MG [...] (affected area in groin) hydrALAZINE Yes 50mg Q.[id number] Take 50 mg [facility] (APRESOLINE 7-[id number] [address] mouth [facility] [address] ) 50 MG [...] area in groin) hydrALAZINE 0 Yes 50mg Q.[id number] Take 50 mg [facility] (APRESOLINE 7-19 [id number] by mouth 3 [facility] ) 50 MG [...] by st (LOPRESSOR) 10:51: mouth 2 [facility] 100 mg 25 (two) l tablet times [...] (affected area in groin) hydrALAZINE Yes 50mg Q.[id number] Take 50 mg [facility] (APRESOLINE 7-19 [id number] mouth [address] ) 50 MG [...] (affected area in groin) hydrALAZINE Yes 50mg Q.[id number] Take 50 mg [facility] (APRESOLINE 7-[id number] mouth [address] ) 50 MG [...] area in groin) hydrALAZINE 0 Yes 50mg Q.[id number] Take 50 mg [facility] (APRESOLINE 7-19 [id number] mouth [facility] ) 50 MG [...] area in groin) hydrALAZINE 0 Yes 50mg Q.[id number] Take 50 mg [facility] (APRESOLINE 7-[id number] mouth [address] [facility] ) 50 MG [...] (affected area in groin) hydrALAZINE Yes 50mg Q.[id number] Take 50 mg [facility] (APRESOLINE 7-19 [id number] [address] mouth [facility] ) 50 MG [...] (affected area in groin) hydrALAZINE Yes 50mg Q.[id number] Take 50 mg [facility] (APRESOLINE 7-19 [id number] mouth 3 [facility] ) 50 MG [...] area in groin) hydrALAZINE 2021-0 Yes 50mg Q.[id number] Take 50 mg [facility] (APRESOLINE 7-[id number] mouth [address] ) 50 MG [...] (affected area in groin) hydrALAZINE Yes 50mg Q.[id number] Take 50 mg [facility] (APRESOLINE 7-[id number] mouth [address] ) 50 MG [...] (affected area in groin) hydrALAZINE Yes 50mg Q.[id number] Take 50 mg [facility] (APRESOLINE 7-19 [id number] [address] mouth [facility] ) 50 MG [...] area in groin) hydrALAZINE 0 Yes 50mg Q.[id number] Take 50 mg [facility] (APRESOLINE 7-[id number] mouth [facility] ) 50 MG [...] (affected area in groin) hydrALAZINE Yes 50mg Q.[id number] Take 50 mg [facility] (APRESOLINE 7-[id number] mouth [facility] [address] ) 50 MG [...] [facility] tablet 25 l nystatin-tr 2021-0 Yes [id number] Apply to [facility] iamcinolone 7-06 area(s) 3 ity of cream 00:00: (three) [place] 00 times Medical daily. Branch nystatin-tr 2021-0 Yes [id number] Apply to [facility] iamcinolone 7-06 area(s) 3 ity of cream 00:00: (three) [place] 00 times Medical daily. Branch nystatin-tr 2021-0 Yes [id number] Apply to [facility] iamcinolone 7-06 area(s) 3 ity of cream 00:00: (three) [place] 00 times Medical daily. Branch nystatin-tr 2021-0 Yes [id number] Apply to Univers iamcinolone 7-06 area(s) 3 ity of cream 00:00: (three) [place] 00 times Medical daily. Branch nystatin-tr 2021-0 Yes [id number] Apply to [facility] iamcinolone 7-06 area(s) 3 ity of cream 00:00: (three) [place] 00 times Medical daily. Branch nystatin-tr 2021-0 Yes [id number] Apply to [facility] iamcinolone 7-06 area(s) 3 ity of cream 00:00: (three) [place] 00 times Medical daily. Branch nystatin-tr 2021-0 Yes [id number] Apply to [facility] iamcinolone 7-06 area(s) 3 ity of cream 00:00: (three) [place] 00 times Medical daily. Branch nystatin-tr 2021-0 Yes [id number] Apply to [facility] iamcinolone 7-06 area(s) 3 ity of cream 00:00: (three) [place] 00 times Medical daily. Branch nystatin-tr 2021-0 Yes [id number] Apply to [facility] iamcinolone 7-06 area(s) 3 ity of cream 00:00: (three) [place] 00 times Medical daily. Branch nystatin-tr 2021-0 Yes [id number] Apply to [facility] iamcinolone 7-06 area(s) 3 ity of cream 00:00: (three) [place] 00 times Medical daily. Branch nystatin-tr 2021-0 Yes [id number] Apply to [facility] iamcinolone 7-06 area(s) 3 ity of cream 00:00: (three) [place] 00 times Medical daily. Branch nystatin-tr 2021-0 Yes [id number] Apply to [facility] iamcinolone 7-06 area(s) 3 ity of cream 00:00: (three) [place] 00 times Medical daily. Branch nystatin-tr 2021-0 Yes [id number] Apply to [facility] iamcinolone 7-06 area(s) 3 ity of cream 00:00: (three) [place] 00 times Medical daily. Branch nystatin-tr 2021-0 Yes [id number] Apply to [facility] iamcinolone 7-06 area(s) 3 ity of cream 00:00: (three) [place] 00 times Medical daily. Branch nystatin-tr 1-0 Yes [id number] Apply to [facility] iamcinolone 7-06 area(s) 3 ity of cream 00:00: (three) [place] 00 times Medical daily. Branch nystatin-tr 2021-0 Yes [id number] Apply to [facility] iamcinolone 7-06 area(s) 3 ity of cream 00:00: (three) [place] 00 times Medical daily. Branch nystatin-tr 2021-0 Yes [id number] Apply to [facility] iamcinolone 7-06 area(s) 3 ity of cream 00:00: (three) [place] 00 times Medical daily. Branch nystatin-tr 1-0 Yes [id number] Apply to [facility] iamcinolone 7-06 area(s) 3 ity of cream 00:00: (three) [place] 00 times Medical daily. Branch budesonide- 2020-0 2020- No 1{puff} QD Inhale 1 [facility] formoteroL 6-25 06-[address] (SYMBICORT) 14:37: 00:00 morning. H ospita 160-4.5 02 :00 l mcg/actuati on inhaler hydrALAZINE 0 Yes [id number] 50mg [id number] Take 1 [place] (Apresoline 6-11 [id number] tablet (50 Health ) 50 MG 00:00: 3D mg total) tablet 00 by mouth 3 (three) times a day. hydrALAZINE 0 Yes [id number] 50mg [id number] Take 1 [place] (Apresoline 6-11 [id number] tablet (50 Health ) 50 MG 00:00: [...] 00:00: ointment 00 nystatin 2020-0 2021- No [id number] Q.25D Take 5 mL [facility] (MYCOSTATIN 5-17 [...] ia 4-10 (Same as: l 14:00: Norvasc) [place] emtricitabi No Notes: Caesar lisa ne 200 MG / 4-10 (Same as: l tenofovir 14:00: Descovy) Herm ariel alafenamide 00 Non-formul 25 MG Oral nancy Tablet [Descovy] pantoprazol No Notes: [place] lisa e 4-10 Tablet l 14:00: should not [place] 00 be chewed or crushed. (Same as: Protonix) Amiodarone No Notes: Memor ia 4-10 (Same as: l 14:00: Cordarone) [place] 00 Amlodipine No Notes: Memor ia 4-10 (Same as: l 14:00: Norvasc) [place] emtricitabi No Notes: Caesar lisa ne 200 MG / 4-10 (Same as: l tenofovir 14:00: Descovy) Herm airel alafenamide 00 Non-formul 25 MG Oral nancy Tablet [Descovy] Sertraline No Notes: Memor ia 4-10 (Same as: l 14:00: Zoloft) [place] Sertraline No Notes: Memor ia 4-10 (Same as: l 14:00: Zoloft) [place] pantoprazol No Notes: [place] lisa e 4-10 Tablet l 14:00: should not [place] 00 be chewed or crushed. (Same as: Protonix) Amiodarone No Notes: Memor ia 4-10 (Same as: l 14:00: Cordarone) [place] 00 Amlodipine No Notes: Memor ia 4-10 [...] ia 4-10 (Same as: l 14:00: Cordarone) [place] Amlodipine No Notes: Memor ia 4-10 (Same as: l 14:00: Norvasc) [place] emtricitabi No Notes: Caesar lisa ne 200 MG / 4-10 (Same as: l tenofovir 14:00: Descovy) Herm ariel alafenamide 00 Non-formul 25 MG Oral nancy Tablet [Descovy] Sertraline No Notes: Memor ia 4-10 (Same as: l 14:00: Zoloft) [place] 00 pantoprazol No Notes: [place] lisa e 4-10 Tablet l 14:00: should not [place] 00 be chewed or crushed. (Same as: Protonix) Amiodarone No Notes: Memor ia 4-10 (Same as: l 14:00: Cordarone) [place] Amlodipine No Notes: Memor ia 4-10 (Same as: l 14:00: Norvasc) [place] 00 emtricitabi No Notes: Caesar lisa ne 200 MG / 4-10 (Same as: l tenofovir 14:00: Descovy) Herm ariel alafenamide 00 Non-formul 25 MG Oral nancy Tablet [Descovy] Sertraline No Notes: Memor ia 4-10 (Same as: l 14:00: Zoloft) [place] 00 pantoprazol No Notes: [place] lisa e 4-10 Tablet l 14:00: should not [place] 00 be chewed or crushed. (Same as: Protonix) Amiodarone No Notes: Memor ia 4-10 (Same as: l 14:00: Cordarone) [place] Amlodipine No Notes: Memor ia 4-10 (Same as: l 14:00: Norvasc) [place] emtricitabi No Notes: Caesar lisa ne 200 [...] ia 4-10 (Same as: l 14:00: Cordarone) [place] 00 Amlodipine No Notes: Memor ia 4-10 (Same as: l 14:00: Norvasc) [place] emtricitabi No Notes: [place] lisa ne 200 MG / 4-10 (Same as: l tenofovir 14:00: Descovy) Herm ariel alafenamide 00 Non-formul 25 MG Oral nancy Tablet [Descovy] Sertraline No Notes: Memor ia 4-10 (Same as: l 14:00: Zoloft) [place] 00 pantoprazol No Notes: [place] lisa e 4-10 Tablet l 14:00: should not [place] 00 be chewed or crushed. (Same as: Protonix) Amiodarone No Notes: Memor ia 4-10 (Same as: l 14:00: Cordarone) [place] 00 Sucralfate No Notes: May M emoria 4-10 interfere l 02:00: w/enteral [place] 00 feeds - Take 1 hr before or 2 hr after antacids, dairy pdt, meals & minerals - On empty stomach. For patients unable to swallow tablet, dissolve in 10mL - 30mL of water or juice and stir before giving. (Same As: Carafate) Saline No Notes: Memoria Flush 0.9% 4-10 (Same as: l 02:00: BD [place] Posiflush) Eliquis No Notes: Memoria 4-10 Same as: l 02:00: Eliquis [place] Hydralazine No Notes: Caesar lisa Hydrochlori 4-10 (Same as: l de 50 MG 02:00: Apresoline Her mitchell Oral Tablet 00 ) May interfere w/enteral feedings Take With Food Sucralfate No Notes: May M emoria 4-10 interfere l 02:00: w/enteral [place] 00 feeds - Take 1 hr before or 2 hr after antacids, dairy pdt, meals & minerals - On empty stomach. For patients unable to swallow tablet, dissolve in 10mL - 30mL of water or juice and stir before giving. (Same As: Carafate) Saline No Notes: [facility] Flush 0.9% 4-10 (Same as: l 02:00: BD [place] Posiflush) Eliquis No Notes: Memoria 4-10 Same [...] 0.9% 4-10 (Same as: l 02:00: BD [place] 00 Posiflush) Eliquis No Notes: Memoria 4-10 [...] 0.9% 4-10 (Same as: l 02:00: BD [place] Posiflush) Eliquis No Notes: Memoria 4-10 Same as: l 02:00: Eliquis [place] Hydralazine No Notes: Caesar lisa Hydrochlori 4-10 (Same as: l de 50 MG 02:00: Apresoline Her mitchell Oral Tablet 00 ) May interfere w/enteral feedings Take With Food Sucralfate No Notes: May M emoria 4-10 interfere l 02:00: w/enteral [place] 00 feeds - Take 1 hr before or 2 hr after antacids, dairy pdt, meals & minerals - On empty stomach. For patients unable to swallow tablet, dissolve in 10mL - 30mL of water or juice and stir before giving. (Same As: Carafate) Saline No Notes: [facility] Flush 0.9% 4-10 (Same as: l 02:00: BD [place] Posiflush) Eliquis No Notes: Memoria 4-10 Same as: l 02:00: Eliquis [place] Hydralazine No Notes: Caesar lisa Hydrochlori 4-10 (Same as: l de 50 MG 02:00: Apresoline Her mitchell Oral Tablet 00 ) May interfere w/enteral feedings Take With Food Sucralfate No Notes: May M emoria 4-10 interfere l 02:00: w/enteral [place] 00 feeds - Take 1 hr before or 2 hr after antacids, dairy pdt, meals & minerals - On empty stomach. For patients unable to swallow tablet, dissolve in 10mL - 30mL of water or juice and stir before giving. (Same As: Carafate) Saline No Notes: [facility] Flush 0.9% 4-10 (Same as: l 02:00: BD [place] 00 Posiflush) Eliquis No Notes: Memoria 4-10 Same as: l 02:00: Eliquis Hydralazine No Notes: Caesar lisa Hydrochlori 4-10 (Same as: l de 50 MG 02:00: Apresoline Her mitchell Oral Tablet 00 ) May interfere w/enteral feedings Take With Food Sucralfate No Notes: May M emoria 4-10 interfere l 02:00: w/enteral [place] 00 feeds - Take 1 hr before [...] not exceed l #3 00:12: 4gm/day of [place] acetaminop hen. (Same as: Tylenol with Codeine # 3) acetaminoph No Notes: Do M emoria en-codeine 4-10 not exceed l #3 00:12: 4gm/day of [place] acetaminop hen. (Same as: Tylenol with Codeine # 3) acetaminoph No Notes: Do M emoria en-codeine 4-10 not exceed l #3 00:12: 4gm/day of [place] acetaminop hen. (Same as: Tylenol with Codeine # 3) acetaminoph No Notes: Do M emoria en-codeine 4-10 not exceed l #3 00:12: 4gm/day of [place] 00 acetaminop hen. (Same as: Tylenol with Codeine # 3) acetaminoph No Notes: Do M emoria en-codeine 4-10 not exceed l #3 00:12: 4gm/day of [place] 00 acetaminop hen. (Same as: Tylenol with Codeine # 3) acetaminoph No Notes: Do M emoria en-codeine 4-10 not exceed l #3 00:12: 4gm/day of [place] 00 acetaminop hen. (Same as: Tylenol with Codeine # 3) Buspirone No Notes: Memori a 08-29 (Same As: l 22:00: BuSpar) Lisinopril 0 No 40 mg, 1 Mem oria 4- [...] tartrate 4-09 tab, l 22:00: Route: PO, [place] Drug form: TAB, BID, Dosing Weight 97.273, [...] oria 4-09 tab, l 22:00: Route: PO, [place] 00 Drug form: TAB, BID, Dosing Weight 97.273, kg, Start date: 08/29/20 17:00:00 CDT, Duration: 30 day, Stop date: 09/28/20 9:00:00 CDT metoprolol 1-0 No 100 mg, 1 Me moria tartrate 4-09 tab, l 22:00: Route: PO, [place] 00 Drug form: TAB, BID, Dosing Weight [...] tartrate 4-09 tab, l 22:00: Route: PO, [place] Drug form: TAB, BID, Dosing Weight 97.273, [...] tartrate 4-09 tab, l 22:00: Route: PO, [place] 00 Drug form: TAB, BID, Dosing Weight [...] oria 4-09 tab, l 22:00: Route: PO, [place] Drug form: TAB, BID, Dosing Weight 97.273, [...] Notes: Memoria 4-09 (Same l 17:07: as:MORPhin [place] 00 e Sulfate) Morphine No Notes: Memoria 4-09 (Same l 17:07: as:MORPhin [place] 00 e Sulfate) Morphine No Notes: Memoria 4-09 (Same l 17:07: as:MORPhin [place] 00 e Sulfate) Morphine No Notes: Memoria 4-09 (Same l 17:07: as:MORPhin [place] 00 e Sulfate) Morphine No Notes: Memoria 4-09 (Same l 17:07: as:MORPhin [place] 00 e Sulfate) Morphine No Notes: Memoria 4-09 (Same l 17:07: as:MORPhin [place] 00 e Sulfate) Morphine No Notes: Memoria 4-09 (Same l 17:07: as:MORPhin [place] 00 e Sulfate) buPROPion No 150 mg, [...] tab, PO, l oral 15:27: Daily, # [place] enteric 00 30 tab, 0 coated Refill(s), [...] tab, PO, l oral 15:27: Daily, # [place] enteric 00 30 tab, 0 coated Refill(s), [...] tab, PO, l oral 15:27: Daily, # [place] enteric 00 30 tab, 0 coated Refill(s), [...] tab, PO, l oral 15:26: Daily, # [place] enteric 00 30 tab, 0 coated Refill(s) [...] tab, PO, l oral 15:26: Daily, # [place] enteric 00 30 tab, 0 coated Refill(s) [...] tab, PO, l oral 15:26: Daily, # [place] enteric 00 30 tab, 0 coated Refill(s) tablet sucralfate Yes 1 gm = 1 Mem oria 1 g oral 4-09 tab, PO, l tablet 15:26: Q12H, # 28 Skylar nn 00 tab, 0 Refill(s), Pharmacy: [facility] 149, 162.56, cm, 08/29/20 5:30:00 CDT, Height, 97.273, kg, 08/29/20 5:30:00 CDT, Weight Saline No Notes: Memoria Flush 0.9% 4-09 (Same as: l 15:25: BD [place] 00 Posiflush) Lorazepam No Notes: Memori a 4-09 (Same as: l 15:25: Ativan) [place] 00 Saline No Notes: [facility]oria Flush 0.9% 4-09 (Same as: l 15:25: BD [place] 00 Posiflush) Lorazepam No Notes: Memori a 4-09 (Same as: l 15:25: Ativan) [place] 00 Saline No Notes: Memoria Flush 0.9% 4-09 (Same as: l 15:25: BD [place] 00 Posiflush) Saline No Notes: [facility] Flush 0.9% 4-09 (Same as: l 15:25: BD [place] 00 Posiflush) Lorazepam No Notes: Memori a 4-09 (Same as: l 15:25: Ativan) [place] 00 Lorazepam No Notes: Memori a 4-09 (Same as: l 15:25: Ativan) [place] 00 Saline No Notes: Memoria Flush 0.9% 4-09 (Same as: l 15:25: BD [place] 00 Posiflush) Lorazepam No Notes: Memori a 4-09 (Same as: l 15:25: Ativan) [place] 00 Saline No Notes: Memoria Flush 0.9% 4-09 (Same as: l 15:25: BD [place] 00 Posiflush) Lorazepam No Notes: Memori a [...] Drug form: l mg + 15:00: INJ, [place] 00 Dosing Weight 97.3, kg, Start date: [...] Drug form: l mg + 15:00: INJ, [place] 00 Dosing Weight 97.3, kg, Start date: 08/29/20 10:00:00 CDT, Stop date: 08/29/20 11:00:00 CDT Isuprel HCl 2020-0 No Route: IV, Memoria (ANES) 0.2 08-29 Drug form: l mg + 15:00: INJ, Dosing Weight 97.3, kg, Start date: 08/29/20 10:00:00 CDT, Stop date: 08/29/20 11:00:00 CDT Isuprel HCl 2020-0 No Route: IV, Memoria (ANES) 0.2 08-29 Drug form: l mg + 15:00: INJ, [place] 00 Dosing Weight 97.3, kg, Start date: [...] Memori a 08-29 Route: l 14:01: IVP, [place] 00 Q5Min, Dosing Weight 97.273, kg, PRN [...] lisa 08-29 Route: l 14:01: IVP, PRN, [place] 00 Dosing Weight 97.273, kg, PRN Benzodiaze [...] ia 08-29 Route: l 14:01: IVP, ONCE, [place] 00 Dosing Weight 97.273, kg, PRN Nausea & Vomiting, Start date: 08/29/20 9:01:00 CDT Labetalol 1-0 No 10 mg, Memori a 08-29 Route: l 14:01: IVP, [place] 00 Q5Min, Dosing Weight 97.273, kg, PRN [...] oria ne 08-29 Route: l 14:01: IVP, [place] 00 Q5Min, Dosing Weight 97.273, kg, PRN [...] lisa 08-29 Route: l 14:01: IVP, PRN, [place] 00 Dosing Weight 97.273, kg, PRN Benzodiaze pine Reversal, Initial dose, Start date: 08/29/20 9:01:00 CDT, Duration: 30 day, Stop date: 09/28/20 9:00:00 CDT Naloxone 1-0 No 0.4 mg, Memori a 08-29 Route: l 14:01: IVP, [place] 00 Q2MIN, Dosing Weight 97.273, kg, PRN Narcotic Reversal, Start date: 08/29/20 9:01:00 CDT, Duration: 8 doses or times, Stop date: Limited # of times Ondansetron 2021-0 No 4 mg, Memor ia 08-29 Route: l 14:01: IVP, ONCE, [place] 00 Dosing Weight 97.273, kg, PRN Nausea & Vomiting, Start date: 08/29/20 9:01:00 CDT Labetalol 2021-0 No 10 mg, Memori a 08-29 Route: l 14:01: IVP, [place] 00 Q5Min, Dosing Weight 97.273, kg, PRN Elevated BP, Start date: 08/29/20 9:01:00 CDT, Duration: 5 doses or times, Stop date: Limited # of times Acetaminoph 2021-0 No 1,000 mg, M emoria en 08-29 Route: PO, l 14:01: Drug form: [place] 00 TAB, ONCE, Dosing Weight 97.273, kg, [...] oria ne 08-29 Route: l 14:01: IVP, [place] 00 Q5Min, Dosing Weight 97.273, kg, PRN Pain Score 7-10, Start date: 08/29/20 9:01:00 CDT, Duration: 4 doses or times, Stop date: Limited # of times Labetalol 2021-0 No 10 mg, Memori a 08-29 Route: l 14:01: IVP, [place] 00 Q5Min, Dosing Weight 97.273, kg, PRN Elevated BP, Start date: 08/29/20 9:01:00 CDT, Duration: 5 doses or times, Stop date: Limited # of times Acetaminoph 2021-0 No 1,000 mg, M emoria en 08-29 Route: PO, l 14:01: Drug form: [place] 00 TAB, ONCE, Dosing Weight 97.273, kg, [...] lisa 08-29 Route: l 14:01: IVP, PRN, [place] 00 Dosing Weight 97.273, kg, PRN Benzodiaze [...] lisa 08-29 Route: l 14:01: IVP, PRN, [place] 00 Dosing Weight 97.273, kg, PRN Benzodiaze pine Reversal, Initial dose, Start date: 08/29/20 9:01:00 CDT, Duration: 30 day, Stop date: 09/28/20 9:00:00 CDT Ondansetron 1-0 No 4 mg, Memor ia 08-29 Route: l 14:01: IVP, ONCE, [place] 00 Dosing Weight 97.273, kg, PRN Nausea [...] 08-29 Route: PO, l 14:01: Drug form: [place] 00 TAB, ONCE, Dosing Weight 97.273, kg, [...] lisa 08-29 Route: l 14:01: IVP, PRN, [place] Dosing Weight 97.273, kg, PRN Benzodiaze pine Reversal, Initial dose, Start date: 08/29/20 9:01:00 CDT, Duration: 30 day, Stop date: 09/28/20 9:00:00 CDT Naloxone 2021-0 No 0.4 mg, Memori a 08-29 Route: l 14:01: IVP, [place] 00 Q2MIN, Dosing Weight 97.273, kg, PRN Narcotic Reversal, Start date: 08/29/20 9:01:00 CDT, Duration: 8 doses or times, Stop date: Limited # of times Ondansetron 2021-0 No 4 mg, Memor ia 08-29 Route: l 14:01: IVP, ONCE, [place] Dosing Weight 97.273, kg, PRN Nausea & Vomiting, Start date: 08/29/20 9:01:00 CDT Labetalol 2021-0 No 10 mg, Memori a 08-29 Route: l 14:01: IVP, [place] 00 Q5Min, Dosing Weight 97.273, kg, PRN Elevated BP, Start date: 08/29/20 9:01:00 CDT, Duration: 5 doses or times, Stop date: Limited # of times Acetaminoph 2021-0 No 1,000 mg, M emoria en 08-29 Route: PO, l 14:01: Drug form: [place] 00 TAB, ONCE, Dosing Weight 97.273, kg, [...] INJ, ONCE Stop date: 08/29/20 8:52:00 CDT lidocaine 2021-0 [...] Drug form: l 10 13:15: INJ, Start [place] microgram 00 date: 08/29/20 8:15:00 CDT, Stop [...] Drug form: l 10 13:15: INJ, Start [place] microgram 00 date: 08/29/20 8:15:00 CDT, Stop date: 08/29/20 9:15:00 CDT norepinephr 2020-0 No Route: IV, Memoria ine (ANES) 08-29 Drug form: l 10 13:15: INJ, Start [place] microgram 00 date: 08/29/20 8:15:00 CDT, Stop date: 08/29/20 9:15:00 CDT norepinephr 2020-0 No Route: IV, Memoria ine (ANES) 08-29 Drug form: l 10 13:15: INJ, Start [place] microgram 00 date: 08/29/20 8:15:00 CDT, Stop date: 08/29/20 9:15:00 CDT norepinephr 2020-0 No Route: IV, Memoria ine (ANES) 4-09 Drug form: l 10 13:15: INJ, Start [place] microgram 00 date: 08/29/20 8:15:00 CDT, Stop date: 08/29/20 9:15:00 CDT Sodium 2021-0 No Route: IV, Memor ia Chloride 4-09 Total l 0.9% IV 12:30: Volume: [place] (ANES) 1000 00 1,000, mL Start date: 08/29/20 7:30:00 CDT, Stop date: 08/29/20 8:30:00 CDT Sodium 2021-0 No Route: IV, Memor ia Chloride 4-09 Total l 0.9% IV 12:30: Volume: [place] (ANES) 1000 00 1,000, mL Start date: 08/29/20 7:30:00 CDT, Stop date: 08/29/20 8:30:00 CDT Sodium 2021-0 No Route: IV, Memor ia Chloride 4-09 Total l 0.9% IV 12:30: Volume: [place] (ANES) 1000 00 1,000, mL Start date: 08/29/20 7:30:00 CDT, Stop date: 08/29/20 8:30:00 CDT Sodium 2021-0 No Route: IV, Memor ia Chloride 4-09 Total l 0.9% IV 12:30: Volume: [place] (ANES) 1000 00 1,000, mL Start date: 08/29/20 7:30:00 CDT, Stop date: 08/29/20 8:30:00 CDT Sodium 2021-0 No Route: IV, Memor ia Chloride 4-09 Total l 0.9% IV 12:30: Volume: [place] (ANES) 1000 00 1,000, mL Start date: [...] PO, l tablet 11:43: BID, # 60 Patle n 00 tab, 0 Refill(s) 24 HR Yes 150 mg = 1 Memori a Bupropion 4-09 tab, PO, l Hydrochlori 11:42: Q24H, # 30 [place] de 150 MG 00 tab, 0 Extended Refill(s) Release Tablet 24 HR Yes 150 mg = 1 Memori a Bupropion 4-09 tab, PO, l Hydrochlori 11:42: Q24H, # 30 [place] de 150 MG 00 tab, 0 Extended Refill(s) Release Tablet 24 HR 0 Yes 150 mg = 1 Memori a Bupropion 4-09 tab, PO, l Hydrochlori 11:42: Q24H, # 30 [place] de 150 MG 00 tab, 0 Extended Refill(s) Release Tablet 24 HR Yes 150 mg = 1 Memori a Bupropion 4-09 tab, PO, l Hydrochlori 11:42: Q24H, # 30 [place] de 150 MG 00 tab, 0 Extended Refill(s) Release Tablet 24 HR Yes 150 mg = 1 Memori a Bupropion 4-09 tab, PO, l Hydrochlori 11:42: Q24H, # 30 [place] de 150 MG 00 tab, 0 Extended Refill(s) Release Tablet 24 HR Yes 150 mg = 1 Memori a Bupropion 4-09 tab, PO, l Hydrochlori 11:42: Q24H, # 30 [place] de 150 MG 00 tab, 0 Extended Refill(s) Release Tablet 24 HR Yes 150 mg = 1 Memori a Bupropion 4-09 tab, PO, l Hydrochlori 11:42: Q24H, # 30 [place] de 150 MG 00 tab, 0 Extended [...] 4- Q12H, tab, l Tablet 11:41: 0 [place] [Eliquis] 00 Refill(s), For Atrial Fibrilatio n apixaban 5 2020-0 Yes 5 mg, PO, Me moria MG Oral 4-09 Q12H, tab, l Tablet 11:41: 0 [place] [Eliquis] 00 Refill(s), For Atrial Fibrilatio n apixaban 5 2020-0 Yes 5 mg, PO, Me moria MG Oral 4-09 Q12H, tab, l Tablet 11:41: 0 [place] [Eliquis] 00 Refill(s), For Atrial Fibrilatio n apixaban 5 2020-0 Yes 5 mg, PO, Me moria MG Oral - Q12H, tab, l Tablet 11:41: 0 [place] [Eliquis] 00 Refill(s), For Atrial Fibrilatio n AMIODarone 2020-0 Yes 200 mg = 1 M emoria 200 mg oral -09 tab, PO, l tablet 11:38: Daily, # [place] 00 90 tab, 3 Refill(s) AMIODarone 2020-0 Yes 200 mg = 1 M emoria 200 mg oral 4-09 tab, PO, l tablet 11:38: Daily, # [place] 00 90 tab, 3 Refill(s) AMIODarone 2020-0 Yes 200 mg = 1 M emoria 200 mg oral -09 tab, PO, l tablet 11:38: Daily, # [place] 00 90 tab, 3 Refill(s) AMIODarone 2020-0 Yes 200 mg = 1 M emoria 200 mg oral -09 tab, PO, l tablet 11:38: Daily, # [place] 00 90 tab, 3 Refill(s) AMIODarone 2020-0 [...] tab, PO, l tablet 11:38: Daily, # [place] 00 90 tab, 3 Refill(s) normal 2020-0 [...] tablet (Descovy) 00 200-25 MG tablet sertraline 2019-0 Yes 200mg Q.5D Take 200 [place] (Zoloft) 8-26 mg by [facility] 100 MG 00:00: mouth 2 tablet 00 (two) times a day. sertraline 2018-0 Yes 200mg Q.5D Take 200 [...] tablet 00:00: [facility] Yes 400mg Q.5D Take 400 Met [...] l [facility] [address] Yes 400mg Q.5D Take 400 Met [facility] 400 mg 3-[address] tablet 00:00: mouth 2 [facility] 00 (two) l [facility] [place] [address] Yes 400mg Q.5D Take 400 Met [facility] 400 mg 3-[address] tablet 00:00: mouth 2 [facility] 00 (two) l times a day. [facility] 0 Yes 400mg Q.5D Take 400 Met [facility] 400 mg 3-[address] tablet 00:00: mouth 2 [facility] 00 (two) l times a day[facility] Yes 400mg Q.5D Take 400 Met [facility] 400 mg 3-[address] tablet 00:00: mouth 2 [facility] 00 (two) l times a day. Immunizations Ordered Filled Immunization Date Status Comments [facility] e Immunization Name Name SARS-COV-2 COVID-19 [...] [place] 65[place] PFIZER COVID-19 2020-07-23 [facility]pleted [facility]:00 [facility] PFIZER COVID-19 2020-07-23 Completed [facility] 00:00:00 [facility] PFIZER COVID-19 2020-07-23 Completed [facility] 00:00:00 [facility] PFIZER COVID-19 2020-07-23 Completed [facility] 00:00:00 [facility] PFIZER COVID-19 2020-07-23 Completed [facility] 00:00:00 [facility] PFIZER COVID-19 2020-07-23 Completed [facility] 00:00:00 [facility] PFIZER COVID-19 2020-07-23 Completed [facility] 00:00:00 [facility] PFIZER COVID-19 2020-07-23 Completed [facility] 00:00:00 [facility] PFIZER COVID-19 2020-07-23 Completed [facility] 00:00:00 [facility] PFIZER COVID-19 2020-07-23 Completed [facility] 00:00:00 [facility] PFIZER COVID-19 2020-07-23 Completed [facility] 00:00:00 [facility] PFIZER COVID-19 2020-07-23 Completed [facility] 00:00:00 [facility] PFIZER COVID-19 2020-07-23 Completed [facility] 00:00:00 [facility] PFIZER COVID-19 2020-07-23 Completed [facility] 00:00:00 [facility] PFIZER COVID-19 2020-07-23 Completed [facility] 00:00:00 [facility] PFIZER COVID-19 2020-07-23 [facility]pleted [facility] VACC[facility] 00:00:00 [facility] PFIZER COVID-19 2020-07-23 [facility]pleted [facility] VACC[facility] 00[facility]00:00 [facility] PFIZER COVID-19 2020-07-23 [facility]pleted [facility] VACC[facility] 00[facility]00:00 [facility] PFIZER COVID-19 2020-07-23 Completed [facility] VACC[facility] 00[facility]00:00 [facility] PFIZER COVID-19 2020-07-23 [facility]pleted [facility] VACC[facility] 00[facility]00:00 [facility] PFIZER COVID-19 2020-07-23 [facility]pleted [facility] VACC[facility]ATION 00[facility]00:00 [facility] PFIZER COVID-19 2020-07-23 Completed [facility] VACC[facility] 00:00:00 [facility] PFIZER COVID-19 2020-07-23 Completed [facility] VACC[facility] 00:00:00 [facility] PFIZER COVID-19 2020-07-23 Completed [facility] VACC[facility] 00[facility]00:00 [facility] PFIZER COVID-19 2020-07-23 [facility]pleted [facility] VACC[facility] 00:00:00 [facility] PFIZER COVID-19 2020-07-23 Completed [facility] VACC[facility]ATION 00:00:00 [facility] PFIZER COVID-19 2020-07-23 Completed [facility] VACC[facility] 00:00:00 [facility] PFIZER COVID-19 2020-07-23 Completed [facility] VACC[facility] 00:00:00 [facility] PFIZER COVID-19 2020-07-23 Completed [facility] VACC[facility] 00[facility]00:00 [facility] PFIZER COVID-19 2020-07-23 [facility]pleted [facility] VACC[facility] 00[facility]00:00 [facility] PFIZER COVID-19 2020-07-23 [facility]pleted [facility] VACC[facility]ATION 00:00:00 [facility] PFIZER COVID-19 2020-07-23 Completed [facility] VACCINATION 00[facility]00:00 [facility] PFIZER COVID-19 2020-07-23 [facility]00 [facility] PFIZER COVID-19 2020-07-23 Completed [facility]:00:00 [facility] PFIZER COVID-19 2020-07-23 Completed [facility]:00:00 [facility] PFIZER COVID-19 2020-07-23 Completed [facility]:00:00 [facility] PFIZER COVID-19 2020-07-23 Completed [facility]:00:00 [facility] SARS-COV-2 COVID-19 2020-07-23 Completed Unive rsity [...] [facility] PFIZER COVID-19 2020-07-23 Com[facility]:00:00 [facility] PFIZER COVID-19 2020-07-02 Completed [facility] 00:00:00 [facility] PFIZER COVID-19 2020-07-02 Completed [facility] 00:00:00 [facility] PFIZER COVID-19 2020-07-02 Completed [facility] 00:00:00 [facility] PFIZER COVID-19 2020-07-02 Completed [facility] 00:00:00 [facility] PFIZER COVID-19 2020-07-02 Completed [facility] 00:00:00 [facility] PFIZER COVID-19 2020-07-02 Completed [facility] 00:00:00 [facility] PFIZER COVID-19 2020-07-02 Completed [facility] 00:00:00 [facility] PFIZER COVID-19 2020-07-02 Completed [facility] 00:00:00 [facility] PFIZER COVID-19 2020-07-02 Completed [facility] 00:00:00 [facility] PFIZER COVID-19 2020-07-02 Completed [facility] 00:00:00 [facility] PFIZER COVID-19 2020-07-02 Completed [facility] 00:00:00 [facility] PFIZER COVID-19 2020-07-02 Completed [facility] 00:00:00 [facility] PFIZER COVID-19 2020-07-02 Completed [facility] 00:00:00 [facility] PFIZER COVID-19 2020-07-02 Completed [facility] 00:00:00 [facility] PFIZER COVID-19 2020-07-02 Completed [facility] 00:00:00 [facility] PFIZER COVID-19 2020-07-02 Completed [facility] 00:00:00 [facility] PFIZER COVID-19 2020-07-02 Completed [facility] 00:00:00 [facility] PFIZER COVID-19 2020-07-02 Completed [facility] 00:00:00 [facility] PFIZER COVID-19 2020-07-02 Completed [facility] 00:00:00 [facility] PFIZER COVID-19 2020-07-02 Completed [facility] 00:00:00 [facility] PFIZER COVID-19 2020-07-02 Completed [facility] 00:00:00 [facility] PFIZER COVID-19 2020-07-02 Completed [facility] 00:00:00 [facility] PFIZER COVID-19 2020-07-02 Completed [facility] 00:00:00 [facility] PFIZER COVID-19 2020-07-02 Completed [facility] 00:00:00 [facility] PFIZER COVID-19 2020-07-02 Completed [facility] 00:00:00 [facility] PFIZER COVID-19 2020-07-02 Completed [facility] 00:00:00 [facility] PFIZER COVID-19 2020-07-02 Completed [facility] 00:00:00 [facility] PFIZER COVID-19 2020-07-02 Completed [facility] 00:00:00 [facility] PFIZER COVID-19 2020-07-02 Completed [facility] 00:00:00 [facility] PFIZER COVID-19 2020-07-02 Completed [facility] 00:00:00 [facility] PFIZER COVID-19 2020-07-02 Completed [facility] 00:00:00 [facility] PFIZER COVID-19 2020-07-02 Completed [facility] 00:00:00 [facility] PFIZER COVID-19 2020-07-02 Completed [facility] 00:00:00 [facility] PFIZER COVID-19 2020-07-02 Completed [facility] 00:00:00 [facility] PFIZER COVID-19 2020-07-02 Completed [facility] 00:00:00 [facility] PFIZER COVID-19 2020-07-02 Completed [facility] 00:00:00 [facility] PFIZER COVID-19 2020-07-02 Completed [facility] 00:00:00 [facility] SARS-COV-2 COVID-19 2020-07-02 Completed Unive rsity [...] [facility] PFIZER COVID-19 2020-07-02 Completed [facility]:00:00 [facility] Influenza Virus 2017-03-08 Completed Universit y [...] (3+ yrs) 00:[facility] Pneumococcal 13 2014-01-30 Completed Universit y of Conjugate, PCV13 00:00:00 [facility] dical (Prevnar 13) Branch Influenza Virus 2014-01-30 Completed Universit y of Vaccine (3+ yrs) 00:00:00 [facility] Pneumococcal 13 2014-01-30 Completed Universit y of Conjugate, PCV13 00:00:00 [facility] dical (Prevnar 13) Branch Influenza Virus 2014-01-30 Completed [facility]it y of Vaccine (3+ yrs) 00:00:00 [facility] Pneumococcal 13 2014-01-30 Completed Universit [...] y of Vaccine (3+ yrs) 00:00[facility]00 [place] [facility] Pneumococcal 13 2014-01-30 Completed [facility]it [facility] of Conjugate, PCV13 00:00:00 [place] [facility] (Prevnar 13) [facility] Influenza Virus 2014-01-30 Completed [facility] of Vaccine (3+ yrs) 00:00:00 [place] [facility] Pneumococcal 13 2014-01-30 Completed [facility]it y of Conjugate, PCV13 00:00:00 [place] [facility] (Prevnar 13) [facility] Influenza Virus 2014-01-30 Completed [facility]it y of Vaccine (3+ yrs) 00:00:00 [place] [facility] Pneumococcal 13 2014-01-30 Completed [facility] y of Conjugate, PCV13 00:00:00 [place] [facility] (Prevnar 13) [facility] Influenza Virus 2014-01-30 Completed [facility]it y of Vaccine (3+ yrs) 00:00:00 [facility] dical Branch Pneumococcal 13 2014-01-30 Completed [facility]it y of Conjugate, PCV13 00:00:00 [place] [facility] (Prevnar 13) [facility] Influenza Virus 2014-01-30 Completed [facility]it y of Vaccine (3+ yrs) 00:00:00 [place] [facility] Pneumococcal 13 2014-01-30 Completed [facility]it y of Conjugate, PCV13 00:00:00 [place] [facility] (Prevnar 13) Branch Influenza Virus 2014-01-30 Completed [facility]it y of Vaccine (3+ yrs) 00:00:00 [facility] dical Branch Pneumococcal 13 2014-01-30 Completed [facility]it y of Conjugate, PCV13 00:00:00 [place] [facility] (Prevnar 13) Branch Influenza Virus 2014-01-30 Completed [facility]it y of Vaccine (3+ yrs) 00:00:00 [place] [facility] Pneumococcal 13 2014-01-30 Completed [facility]it y of Conjugate, PCV13 00:00:00 [place] [facility] (Prevnar 13) Branch Influenza Virus 2014-01-30 Completed [facility]it y of Vaccine (3+ yrs) 00:00:00 [place] [facility] Pneumococcal 13 2014-01-30 Completed [facility]it [facility] of Conjugate, PCV13 00:00:00 [place] [facility] (Prevnar 13) Branch Influenza Virus 2014-01-30 Completed [facility]it y of Vaccine (3+ yrs) 00:00:00 [place] [facility] Pneumococcal 13 2014-01-30 Completed [facility]it y of Conjugate, PCV13 00:00:00 [facility] dical (Prevnar 13) Branch Influenza Virus 2014-01-30 Completed Universit y of Vaccine (3+ yrs) 00:00:00 [facility]ical Branch Pneumococcal 13 2014-01-30 Completed Universit y of Conjugate, PCV13 00:00:00 [facility] dical (Prevnar 13) Branch Influenza Virus 2014-01-30 Completed [facility]it y of Vaccine (3+ yrs) 00:00:00 [place] [facility] Pneumococcal 13 2014-01-30 Completed [facility]it y of Conjugate, PCV13 00:00:00 [facility]ical (Prevnar 13) Branch Influenza Virus 2014-01-30 Completed Universit y of Vaccine (3+ yrs) 00:00:00 [facility] Branch Pneumococcal 13 2014-01-30 Completed Universit y of Conjugate, PCV13 00:00:00 [facility]ical (Prevnar 13) Branch Influenza Virus 2014-01-30 Completed Universit y of Vaccine (3+ yrs) 00:00:00 [facility] Branch Pneumococcal 13 2014-01-30 Completed Universit y of Conjugate, PCV13 00:00:00 [facility] dical (Prevnar 13) Branch Pneumococcal [...] 2011-09-01 Completed Unive rsity of Dosage 00:00:00 [facility] Hep B, Adol or Pedi 2011-09-01 Completed Unive rsity of Dosage 00:00:00 [facility] Hep B, Adol or Pedi 2011-09-01 Completed Unive rsity of Dosage 00:00:00 [facility] Hep B, Adol or Pedi 2011-09-01 Completed Unive rsity of Dosage 00:00:00 [facility] Hep B, Adol or Pedi 2011-09-01 Completed Unive rsity of Dosage 00:00:00 [facility] Hep B, Adol or Pedi 2011-09-01 Completed Unive rsity of Dosage 00:00:00 [facility] Hep B, Adol or Pedi 2011-09-01 Completed Unive rsity of Dosage 00:00:00 [facility] Hep B, Adol or Pedi 2011-09-01 Completed Unive rsity of Dosage 00:00:00 [facility] Hep B, Adol or Pedi 2011-09-01 Completed Unive rsity of Dosage 00:00:00 [facility] Hep B, Adol or Pedi 2011-09-01 Completed Unive rsity of Dosage 00:00:00 [facility] Hep B, Adol or Pedi 2011-09-01 Completed Unive rsity of Dosage 00:00:00 [facility] Hep B, Adol or [...] 2011-03-17 Completed Unive rsity of Dosage 00:00:00 [facility] Hep B, Adol or Pedi 2011-03-17 Completed Unive rsity of Dosage 00:00:00 [facility] Hep B, Adol or Pedi 2011-03-17 Completed Unive rsity of Dosage 00:00:00 [facility] Hep B, Adol or Pedi 2011-03-17 Completed Unive rsity of Dosage 00:00:00 [facility] Hep B, Adol or Pedi 2011-03-17 Completed Unive rsity of Dosage 00:00:00 [facility] Hep B, Adol or Pedi 2011-03-17 Completed Unive rsity of Dosage 00:00:00 [facility] Hep B, Adol or Pedi 2011-03-17 Completed Unive rsity of Dosage 00:00:00 [facility] Influenza Virus 2011-02-10 Completed Universit y of Vaccine 00:00:00 [facility] Hep B, Adol or Pedi 2011-02-10 Completed Unive rsity of Dosage 00:00:00 [facility] Influenza Virus 2011-02-10 Completed Universit y of Vaccine 00:00:00 [facility] Hep B, Adol or Pedi 2011-02-10 Completed Unive rsity of Dosage 00:00:00 [facility] Influenza Virus 2011-02-10 Completed Universit y of Vaccine 00:00:00 [facility] Hep B, Adol or Pedi 2011-02-10 Completed Unive rsity of Dosage 00:00:00 [facility] Influenza Virus 2011-02-10 Completed Universit y of Vaccine 00:00:00 [facility] Hep B, Adol or Pedi 2011-02-10 Completed Unive rsity of Dosage 00:00:00 [facility] Influenza Virus 2011-02-10 Completed Universit y of Vaccine 00:00:00 [facility] Hep B, Adol or Pedi 2011-02-10 Completed Unive rsity of Dosage 00:00:00 [facility] Influenza Virus 2011-02-10 Completed Universit y of Vaccine 00:00:00 [facility] Hep B, Adol or Pedi 2011-02-10 Completed Unive rsity of Dosage 00:00:00 [facility] Influenza Virus 2011-02-10 Completed Universit y of Vaccine 00:00:00 [facility] Hep B, Adol or Pedi 2011-02-10 Completed Unive rsity of Dosage 00:00:00 [facility] Influenza Virus 2011-02-10 Completed Universit y of Vaccine 00:00:00 [facility] Hep B, Adol or Pedi 2011-02-10 Completed Unive rsity of Dosage 00:00:00 [facility] Influenza Virus 2011-02-10 Completed Universit y of Vaccine 00:00:00 [facility] Hep B, Adol or [...] 2011-02-10 Completed Universit y of Vaccine 00:00:00 [facility] Hep B, Adol or Pedi 2011-02-10 Completed Unive rsity of Dosage 00:00:00 [facility] Influenza Virus 2011-02-10 Completed Universit y of Vaccine 00:00:00 [facility] Hep B, Adol or Pedi 2011-02-10 Completed Unive rsity of Dosage 00:00:00 [facility] Influenza Virus 2011-02-10 Completed Universit y of Vaccine 00:00:00 [facility] Hep B, Adol or [...] PPD (TB) 2010-11-18 Completed University of 00:00:00 [facility] TDAP (ADACEL) 2010-11-18 Completed University of VACCINE 00:00:00 [facility] PPD (TB) 2010-11-18 Completed University of 00:00:00 [facility] TDAP (ADACEL) 2010-11-18 Completed University of VACCINE 00:00:00 [facility] PPD (TB) 2010-11-18 Completed University of 00:00:00 [facility] TDAP (ADACEL) 2010-11-18 Completed [...] HEPATITIS A 2004-03-02 Completed University of 00:00:00 [facility] HEPATITIS A 2004-03-02 Completed University of 00:00:00 [facility] HEPATITIS A 2004-03-02 Completed University of 00:00:00 [facility] HEPATITIS A 2004-03-02 Completed University of 00:00:00 [facility] HEPATITIS A 2004-03-02 Completed University of 00:00:00 [facility] HEPATITIS A 2004-03-02 Completed University of 00:00:00 [facility] HEPATITIS A 2004-03-02 Completed University of 00:00:00 [facility] HEPATITIS A 2004-03-02 Completed University of 00:00:00 [facility] HEPATITIS A 2004-03-02 Completed University of 00:00:00 [facility] HEPATITIS A 2004-03-02 Completed [facility] 00:00:00 [facility] HEPATITIS A 2004-03-02 Completed University of 00:00:00 [facility] HEPATITIS A 2004-03-02 Completed [facility] of 00:00:00 [facility] HEPATITIS A 2004-03-02 Completed University of 00:00:00 [facility] HEPATITIS A 2004-03-02 Completed University of 00:00:00 [facility] HEPATITIS A 2004-03-02 Completed University of 00:00:00 [facility] HEPATITIS A 2004-03-02 Completed University of 00:00:00 [facility] HEPATITIS A 2004-03-02 Completed University of 00:00:00 [facility] HEPATITIS A 2004-03-02 Completed University of 00:00:00 [facility] HEPATITIS A 2003-08-01 Completed University of 00:00:00 [facility] HEPATITIS A 2003-08-01 Completed University of 00:00:00 [facility] HEPATITIS A 2003-08-01 Completed University of 00:00:00 [facility] HEPATITIS A 2003-08-01 Completed University of 00:00:00 [facility] HEPATITIS A 2003-08-01 Completed University of 00:00:00 [facility] HEPATITIS A 2003-08-01 Completed University of 00:00:00 [facility] HEPATITIS A 2003-08-01 Completed [facility] of 00:00:00 [facility] HEPATITIS A 2003-08-01 Completed University of 00:00:00 [facility] HEPATITIS A 2003-08-01 Completed University of 00:00:00 [facility] HEPATITIS A 2003-08-01 Completed [facility] of 00:00:00 [facility] HEPATITIS A 2003-08-01 Completed [facility] of 00:00:00 [facility] HEPATITIS A 2003-08-01 Completed University of 00:00:00 [facility] HEPATITIS A 2003-08-01 Completed University of 00:00:00 [facility] HEPATITIS A 2003-08-01 Completed [facility] of 00:00:00 [facility] HEPATITIS A 2003-08-01 Completed [facility] of 00:00:00 [facility] HEPATITIS A 2003-08-01 Completed University of 00:00:00 [facility] HEPATITIS A 2003-08-01 Completed University of 00:00:00 [facility] HEPATITIS A 2003-08-01 Completed [facility] 00:00:00 [facility] Pneumococcal 2001-10-04 Completed University o [...] 2001-10-04 Completed University o f Polysaccharide, 00:00:00 [place] [facility] PPSV23 (PNEUMOVAX) Branch PPD (TB) 2001-10-04 Completed [facility] of 00:00:00 [facility] Pneumococcal 2001-10-04 Completed University o f Polysaccharide, 00:00:00 [place] [facility] PPSV23 (PNEUMOVAX) Branch PPD (TB) 2001-10-04 Completed [facility] of 00:00:00 [facility] Pneumococcal 2001-10-04 Completed University o f Polysaccharide, 00:00:00 [place] [facility] PPSV23 (PNEUMOVAX) Branch PPD (TB) [...] 2001-10-04 Completed University o f Polysaccharide, 00:00:00 [place] [facility] PPSV23 (PNEUMOVAX) Branch PPD (TB) 2001-10-04 Completed [facility] of 00:00:00 [facility] Pneumococcal 2001-10-04 Completed University o f Polysaccharide, 00:00:00 [place] [facility] PPSV23 (PNEUMOVAX) Branch PPD (TB) 2001-10-04 Completed [facility] of 00:00:00 [facility] Pneumococcal 2001-10-04 Completed University o f Polysaccharide, 00:00:00 [place] [facility] PPSV23 (PNEUMOVAX) Branch PPD (TB) 2001-10-04 Completed [facility] of 00:00:00 [facility] Pneumococcal 2001-10-04 Completed University o f Polysaccharide, 00:00:00 [place] [facility] PPSV23 (PNEUMOVAX) Branch PPD (TB) 2001-10-04 Completed University of 00:00:00 [facility] Vital Signs Vital Name Observation Time Observation Value Comments Source Systolic blood 2022-05-10 22:00:00 159 mm[Hg] Univer sity of pressure [facility] Diastolic blood 2022-05-10 22:00:00 87 mm[Hg] Unive rsity of pressure [facility] Heart rate 2022-05-10 22:00:00 56 [facility] Body temperature 2022-05-10 22:00:00 36.61 Amina [facility] Respiratory rate 2022-05-10 22:00:00 17 /min [facility] Oxygen saturation in 2022-05-10 22:00:00 98 /min University of Arterial blood by [facility] Pulse oximetry Branch Body weight 2022-05-10 [...] 100 /min University of Arterial blood by [facility] Pulse oximetry Branch Body temperature 2022-05-08 [...] University of Arterial blood by [facility] Pulse oximetry Branch Body temperature 2022-05-06 20:12:00 36.5 Amina [facility] Body height 2022-05-06 20:12:00 162.6 cm [facility] Body weight 2022-05-06 20:12:00 78.926 kg [facility] BMI 2022-05-06 20:12:00 29.87 kg/m2 [facility] Systolic blood 2022-04-22 19:50:00 156 mm[Hg] Univer [facility]ity of pressure [facility] Diastolic blood 2022-04-22 19:50:00 89 mm[Hg] Unive rsity of pressure [facility] Heart rate 2022-04-22 19:50:00 69 /min [facility] Body temperature 2022-04-22 19:50:00 36.67 Amina [facility] Respiratory rate 2022-04-22 19:50:00 17 /min [facility] Body height 2022-04-22 19:50:00 162.6 cm [facility] Body weight 2022-04-22 19:50:00 80.74 kg [facility] BMI 2022-04-22 19:50:00 30.55 kg/m2 [facility] Oxygen saturation in 2022-04-22 19:50:00 96 /min University of Arterial blood by [facility] Pulse oximetry Branch Systolic blood 2022-03-05 15:23:00 167 mm[Hg] Univer [facility]ity of pressure [facility] Diastolic blood 2022-03-05 15:23:00 105 mm[Hg] Unive rsity of pressure [facility] Heart rate 2022-03-05 15:23:00 49 /min [facility] Body temperature 2022-03-05 15:18:00 36.67 Amina [facility] Respiratory rate 2022-03-05 15:18:00 18 /min [facility] Body height 2022-03-05 15:18:00 162.6 cm [facility] Body weight 2022-03-05 15:18:00 74.707 kg [facility] BMI 2022-03-05 15:18:00 28.27 kg/m2 [facility] Systolic blood 2022-02-16 21:41:00 169 mm[Hg] Univer sity of pressure [facility] Diastolic blood 2022-02-16 21:41:00 86 mm[Hg] Unive rsity of pressure [facility] Heart rate 2022-02-16 21:41:00 51 /min Universi ty of [facility] Body temperature 2022-02-16 21:41:00 36.56 Amina Univ ers[facility] of [facility] Respiratory rate 2022-02-16 21:41:00 17 /[facility] Oxygen saturation in 2022-02-16 21:41:00 98 /min [facility] Arterial blood by [facility] Pulse oximetry Branch Body height 2022-02-11 16:02:00 162.6 cm Universi ty of [facility] Body weight 2022-02-11 16:02:00 79.379 kg Universi ty of [facility] BMI 2022-02-11 16:02:00 30.04 kg/m2 Universi ty of [facility] Systolic blood 2021-11-20 13:47:00 165 mm[Hg] Univer sity of pressure [facility] Diastolic blood 2021-11-20 13:47:00 83 mm[Hg] Unive rsity of pressure [facility] Heart rate 2021-11-20 13:47:00 58 /min Universi ty of [facility] Body temperature 2021-11-20 13:42:00 36.39 Amina Univ ers[facility] of [facility] Respiratory rate 2021-11-20 13:42:00 16 /min Univ ersity of [facility] Body height 2021-11-20 13:42:00 162.6 cm Universi ty of [facility] Body weight 2021-11-20 13:42:00 84.369 kg [facility] [place] BMI 2021-11-20 13:42:00 31.93 kg/m2 [facility]i ty of [facility] Systolic blood 2021-07-14 15:18:00 142 mm[facility]Hg[facility] Di[facility] blood 2021-07-14 15:18:00 76 mm[facility]Hg] [facility] Heart rate 2021-07-14 15:18:00 61 [facility] Body height 2021-07-14 15:18:00 [facility]6 [facility] Body weight 2021-07-14 15:18:00 [facility]802 [facility] 2021-07-14 15:18:00 35[facility]87 [facility] 2022-03-05 15:23:00 167 mm[Hg] Univer sity of pressure [facility] Diastolic blood 2022-03-05 15:23:00 105 mm[Hg] Unive rsity of pressure [facility] Heart rate 2022-03-05 15:23:00 49 /min Universi ty [facility] Body temperature 2022-03-05 15:18:00 36.67 [facility] 2022-03-05 15:18:00 18 /min [facility] Body height 2022-03-05 15:18:[address] [facility] Body weight 2022-03-05 15:18:00 74.707 kg [facility] BMI 2022-03-05 15:18:00 28.27 kg/m2 [facility] Oxygen saturation in 2022-02-16 21:41:00 98 /min [facility] Arterial blood by [facility] Pulse oximetry [place] Systolic blood 2020-12-08 15:48:00 125 mm[Hg] Method [facility] pressure Diastolic blood 2020-12-08 15:48:00 76 mm[Hg] [facility] pressure Heart rate 2020-12-08 15:48:00 64 /min [facility] Body temperature 2020-12-08 15:48:00 36.61 Amina [facility] Respiratory rate 2020-12-08 15:48:00 17 /min [facility] Body height 2020-12-08 15:48:00 162.6 cm [facility] Body weight 2020-12-08 15:48:00 98.884 kg [facility] BMI 2020-12-08 15:48:00 37.42 kg/m2 [facility] Oxygen saturation in 2020-12-08 15:48:00 97 /min [facility] Arterial blood by Pulse oximetry Respitory Rate 2020-08-30 13:00:00 [place] Systolic (mm Hg) 2020-08-30 13:00:00 [place] Diastolic (mm Hg) 2020-08-30 13:00:00 Mem orial [place] Systolic (mm Hg) 2020-08-30 11:00:00 Caesar rial [place] Diastolic (mm Hg) 2020-08-30 11:00:00 Mem orial [place] Temperature Oral (F) 2020-08-30 11:00:00 98.4 F [facility] [place] Respitory Rate 2020-08-30 11:00:00 Memori al [facility] Respitory Rate 2020-08-30 10:00:00 [facility] [place] Systolic (mm Hg) 2020-08-30 10:00:00 Caesar rial [facility] Diastolic (mm Hg) 2020-08-30 10:00:00 Mem orial [place] Temperature Oral (F) 2020-08-30 00:00:00 96.9 F [facility] Temperature Oral (F) 2020-08-29 11:26:00 97.6 F [facility] [place] Height 2020-08-29 10:30:00 162.56 cm [facility] Weight 2020-08-29 10:30:00 [facility] BMI Calculated 2020-08-29 10:30:00 [place] andre [place] Procedures Procedure Date / Time Performing Clinician Source Performed URINALYSIS 2022-05-10 19:36:00 Home Matthews [facility] TROPONIN I 2022-05-10 18:34:00 Home Matthews [facility] COMP. METABOLIC PANEL 2022-05-10 18:34:00 Home Matthews [facility] ([id number]) [facility] CBC WITH DIFF 2022-05-10 18:34:00 Home Matthews [facility] XR CHEST 2 VW 2022-05-10 17:24:58 Home Matthews [facility] CONSENT/REFUSAL FOR 2022-05-10 16:26:23 Doctor Unassigned, [facility] DIAGNOSIS AND TREATMENT [place] [facility] CONSENT/REFUSAL FOR 2022-05-10 16:26:09 Doctor Unassigned, [facility] DIAGNOSIS AND TREATMENT [place] [facility] URINALYSIS 2022-05-08 22:43:00 Theresa Hickman [facility] XR CHEST 2 VW 2022-05-06 22:56:53 Anette Olea [facility] COMP. METABOLIC PANEL 2022-05-06 22:14:00 Anette Olea [facility] ([id number]) Medical Branch CBC WITH DIFF 2022-05-06 22:14:00 Anette Olea [facility] COVID-19 (ID NOW RAPID 2022-05-06 22:14:00 Anette Olea [facility] TESTING) Medical Branch BASIC METABOLIC PANEL (NA, 2022-04-22 21:23:00 Paulette Gray [facility] K, CL, CO2, GLUCOSE, BUN, Medica l Branch CREATININE, CA) CBC WITH DIFF 2022-04-22 21:23:00 Paulette Gray [facility] CONSENT/REFUSAL FOR 2022-04-22 19:45:46 Doctor Unassigned, [facility] DIAGNOSIS AND TREATMENT [place] [facility] SARS-COV-2 COVID-19 2022-03-05 16:09:27 [facility] DIMITRIS-SUCROSE VACCINE [address] [place] [address] YRS+, BIVALENT 0.3ML, IM, (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) FLU 2022-03-05 16:09:27 [facility] VACC(),65+YR,0.5 Medica l Branch ML,IM,ADJUVANTED,QUAD(FLUA D) FLU 2022-03-05 16:09:27 [facility] VACC(),65+YR,0.5 Medica l Branch ML,IM,ADJUVANTED,QUAD(FLUA D) SARS-COV-2 COVID-19 2022-03-05 16:09:27 [facility] DIMITRIS-SUCROSE VACCINE [address] [place] [address] YRS+, BIVALENT 0.3ML, IM, (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) MAGNESIUM 2022-02-15 09:41:00 Sofia Garcia [facility] BASIC METABOLIC PANEL (NA, 2022-02-15 09:41:00 Sofia Garcia [facility] K, CL, CO2, GLUCOSE, BUN, Medica l Branch CREATININE, CA) CBC WITH DIFF 2022-02-15 09:41:00 Sofia Garcia [facility] N-TERMINAL PRO-BNP 2022-02-15 09:41:00 Sofia Garcia [facility] CBC WITH DIFF 2022-02-15 09:41:00 [facility] BASIC METABOLIC PANEL (NA, 2022-02-15 09:41:00 [facility], CO2, GLUCOSE, BUN, Medica l Branch CREATININE, CA) MAGNESIUM 2022-02-15 09:41:00 Radha [facility] N-TERMINAL PRO-BNP 2022-02-15 09:41:00 Sofia Garcia [facility] BASIC METABOLIC PANEL (NA, 2022-02-13 09:40:00 Sofia Garcia [facility] K, CL, CO2, GLUCOSE, BUN, Medica l Branch CREATININE, CA) CBC WITH DIFF 2022-02-13 09:40:00 Radha Sofia [facility] BASIC METABOLIC PANEL (NA, 2022-02-13 09:40:00 Radha [facility] K, CL, CO2, GLUCOSE, BUN, Medica l Branch CREATININE, CA) CBC WITH DIFF 2022-02-13 09:40:00 Radha Sofia [facility] TROPONIN I 2022-02-11 23:41:00 Radha [facility] N-TERMINAL PRO-BNP 2022-02-11 23:41:00 Sofia Garcia [facility] TROPONIN I 2022-02-11 23:41:00 Sofia Garcia [facility] N-TERMINAL PRO-BNP 2022-02-11 23:41:00 Sofia Garcia [facility] HB ECG ROUTINE & RHYTHM 2022-02-11 22:15:36 [facility] 2022-02-11 21:26:50 [facility] 2022-02-11 21:26:50 [facility]EL[facility] W 2022-02-11 07:45:43 Reilly Means [facility] CONTRAST [facility] CT ABDOMEN PELVIS W 2022-02-11 07:45:43 Reilly Means [facility] CONTRAST [facility] RAPID INFLUENZA A/B 2022-02-11 06:54:00 Reilly Means [facility] RAPID INFLUENZA A/B 2022-02-11 06:54:00 Reilly Means [facility] URINALYSIS 2022-02-11 06:45:00 Reilly Means [facility] URINE CULTURE 2022-02-11 06:45:00 Reilly Means [facility] URINALYSIS 2022-02-11 06:45:00 Reilly Means [facility] URINE CULTURE 2022-02-11 06:45:00 Reilly Means [facility] HB ECG ROUTINE & RHYTHM 2022-02-11 05:22:08 Reilly Means [facility] HB ECG ROUTINE & RHYTHM 2022-02-11 05:22:08 Reilly Means [facility] BLOOD CULTURE SCREEN 2022-02-11 04:58:00 Reilly Means [facility] TROPONIN I 2022-02-11 04:58:00 Reilly Means [facility] COMP. METABOLIC PANEL 2022-02-11 04:58:00 Reilly Means [facility] ([id number]) Medical Branch CBC WITH DIFF 2022-02-11 04:58:00 Reilly Means [facility] PROTHROMBIN TIME / INR 2022-02-11 04:58:00 Reilly Means [facility] ACTIVATED PARTIAL THRMPLAS 2022-02-11 04:58:00 Reilly Means [facility] N-TERMINAL PRO-BNP 2022-02-11 04:58:00 Reilly Means [facility] LACTIC ACID WHOLE BLOOD 2022-02-11 04:58:00 Reilly Means [facility] COVID-19 (ID NOW RAPID 2022-02-11 04:58:00 Reilly Means [facility] TESTING) Medical Branch LAB ONLY COVID 2022-02-11 04:58:00 Reilly Means [facility] CBC WITH DIFF 2022-02-11 04:58:00 Reilly Means [facility] ACTIVATED PARTIAL THRMPLAS 2022-02-11 04:58:00 Reilly Means [facility] PROTHROMBIN TIME / INR 2022-02-11 04:58:00 Reilly Means [facility] COVID-19 (ID NOW RAPID 2022-02-11 04:58:00 Reilly Means [facility] TESTING) [facility] [place] COMP. METABOLIC PANEL 2022-02-11 04:58:00 Reilly Means [facility] ([id number]) [facility] [place] TROPONIN I 2022-02-11 04:58:00 Reilly Means [facility] N-TERMINAL PRO-BNP 2022-02-11 04:58:00 Reilly Means [facility] BLOOD CULTURE SCREEN 2022-02-11 04:58:00 Reilly Means [facility] LACTIC ACID WHOLE BLOOD 2022-02-11 04:58:00 Reilly Means [facility] LAB ONLY COVID 2022-02-11 04:58:00 Reilly Means [facility] XR CHEST 1 VW 2022-02-11 04:27:42 Miguelangel Reilly [facility] XR CHEST 1 2022-02-11 04:27:42 Reilly Means [facility] HOSPITAL ADMISSION 2022-02-10 05:01:00 Doctor Unassigned, [facility] Name [facility] [place] HOSPITAL ADMISSION 2022-02-10 05:01:00 Doctor Unassigned, [facility] Name [facility] [place] ECG 12-LEAD 2021-07-14 15:14:00 Elan Lira [facility] [id number] 2021-06-17 00:00:00 RIKY Myrick [facility] GASTROINTESTINAL PANEL 2020-12-08 22:21:00 Eliseo Arce [facility] XR ABDOMEN 1 VW 2020-12-08 18:06:32 [facility]o [facility]ceist [facility] [place] < 1 HOUR 2020-09-05 22:39:00 Eliseo Arce [facility] SURGICAL PATHOLOGY REQUEST 2020-09-05 21:54:00 Eliseo Arce [facility] XR CHEST 1 VW PORTABLE 2020-09-05 19:55:00 [facility] DISCHARGE PATIENT 2020-09-05 17:27:55 Lucas Harris [facility] [place] AN ELECTIVE 2020-09-05 16:47:23 Kirti Flood [facility] ENDOTRACHEAL AIRWAY EGD, INTRAOPERATIVE 2020-09-05 16:27:00 [facility] 2020-09-05 15:04[facility]00 [facility] TIME (PTT) M. PROTHROMBIN TIME WITH INR 2020-09-05 15:04:00 Mindy Maharaj [facility] M. Plan of Care Planned Activity Planned Date Details Comments Source Future Scheduled 2022-06-11 SHINGLES VACCINES ([address] [facility] Test 16:10:12 of 2) [code = SHINGLES VACCINES (1 of 2)] Future Scheduled 2022-06-11 BREAST CANCER [facility] Test 16:10:12 SCREENING [code = BREAST CANCER SCREENING] Future Scheduled 2022-06-11 COLONOSCOPY SCREENING [facility] Test 16:10:12 [code = COLONOSCOPY SCREENING] Future Scheduled 2022-06-11 HEPATITIS B VACCINES Met [facility] Test 16:10:12 (1 of 3 - Risk 3-dose series) [code = HEPATITIS B VACCINES (1 of 3 - Risk 3-dose series)] Future Scheduled 2022-06-11 COVID-19 VACCINE (3 - [facility] Test 16:10:12 Booster for Pfizer series) [code = COVID-19 VACCINE (3 - Booster for Pfizer series)] Future Scheduled 2022-06-11 65+ PNEUMOCOCCAL [facility] Test 16:10:12 VACCINE (4 - PPSV23 if available, else PCV20) [code = 65+ PNEUMOCOCCAL VACCINE (4 - PPSV23 if available, else PCV20)] Future Scheduled 2022-06-11 INFLUENZA VACCINE Method [facility] Test 16:10:12 [code = INFLUENZA VACCINE] Future Scheduled 2022-06-11 SHINGLES VACCINES ([address] [facility] Test 16:10:12 of 2) [code = SHINGLES VACCINES (1 of 2)] Future Scheduled 2022-06-11 BREAST CANCER [facility] Test 16:10:12 SCREENING [code = BREAST CANCER SCREENING] Future Scheduled 2022-06-11 COLONOSCOPY SCREENING [facility] Test 16:10:12 [code = COLONOSCOPY SCREENING] Future Scheduled 2022-06-11 HEPATITIS B VACCINES Met [facility] Test 16:10:12 (1 of 3 - Risk 3-dose series) [code = HEPATITIS B VACCINES (1 of 3 - Risk 3-dose series)] Future Scheduled 2022-06-11 COVID-19 VACCINE (3 - Me [facility] Test 16:10:12 Booster for Pfizer series) [code = COVID-19 VACCINE (3 - Booster for Pfizer series)] Future Scheduled 2022-06-11 65+ [facility]CCAL [facility] 16:10:12 VACCINE (4 - PPSV23 if available, else PCV20) [code = 65+ PNEUMOCOCCAL VACCINE (4 - PPSV23 if available, else PCV20)] Future Scheduled 2022-06-11 INFLUENZA VACCINE Method [facility] Test 16:10:12 [code = INFLUENZA VACCINE] Future Scheduled 2022-06-11 SHINGLES VACCINES ([address] [facility] Test 16:10:12 of 2) [code = SHINGLES VACCINES (1 of 2)] Future Scheduled 2022-06-11 BREAST CANCER [facility] Test 16:10:12 SCREENING [code = BREAST CANCER SCREENING] Future Scheduled 2022-06-11 COLONOSCOPY SCREENING [facility] Test 16:10:12 [code = COLONOSCOPY SCREENING] Future Scheduled 2022-06-11 HEPATITIS B VACCINES Met [facility] Test 16:10:12 (1 of 3 - Risk 3-dose series) [code = HEPATITIS B VACCINES (1 of 3 - Risk 3-dose series)] Future Scheduled 2022-06-11 COVID-19 VACCINE (3 - Me [facility] Test 16:10:12 Booster for Pfizer series) [code = COVID-19 VACCINE (3 - Booster for Pfizer series)] Future Scheduled 2022-06-11 65+ [facility] Test 16:10:12 VACCINE (4 - PPSV23 if available, else PCV20) [code = 65+ PNEUMOCOCCAL VACCINE (4 - PPSV23 if available, else PCV20)] Future Scheduled 2022-06-11 INFLUENZA VACCINE [facility] Test 16:10:12 [code = INFLUENZA VACCINE] Future Scheduled 2022-06-11 SHINGLES VACCINES ([address] [facility] Test 16:10:12 of 2) [code = SHINGLES VACCINES (1 of 2)] Future Scheduled 2022-06-11 BREAST CANCER [facility] Test 16:10:12 SCREENING [code = BREAST CANCER SCREENING] Future Scheduled 2022-06-11 COLONOSCOPY SCREENING [facility] Test 16:10:12 [code = COLONOSCOPY SCREENING] Future Scheduled 2022-06-11 HEPATITIS B VACCINES Met [facility] Test 16:10:12 (1 of 3 - Risk 3-dose series) [code = HEPATITIS B VACCINES (1 of 3 - Risk 3-dose series)] Future Scheduled 2022-06-11 COVID-19 VACCINE (3 - Me [facility] Test 16:10:12 Booster for Pfizer series) [code = COVID-19 VACCINE (3 - Booster for Pfizer series)] Future Scheduled 2022-06-11 65+ [facility]OCOCCAL [facility] Test 16:10:12 VACCINE (4 - PPSV23 if available, else PCV20) [code = 65+ PNEUMOCOCCAL VACCINE (4 - PPSV23 if available, else PCV20)] Future Scheduled 2022-06-11 INFLUENZA VACCINE Method [facility] Test 16:10:12 [code = INFLUENZA VACCINE] Future Scheduled 2022-06-11 SHINGLES VACCINES ([address] [facility] Test 16:10:12 of 2) [code = SHINGLES VACCINES (1 of 2)] Future Scheduled 2022-06-11 BREAST CANCER [facility] Test 16:10:12 SCREENING [code = BREAST CANCER SCREENING] Future Scheduled 2022-06-11 COLONOSCOPY SCREENING [facility] Test 16:10:12 [code = COLONOSCOPY SCREENING] Future Scheduled 2022-06-11 HEPATITIS B VACCINES Met [facility] Test 16:10:12 (1 of 3 - Risk 3-dose series) [code = HEPATITIS B VACCINES (1 of 3 - Risk 3-dose series)] Future Scheduled 2022-06-11 COVID-19 VACCINE (3 - Me [facility] Test 16:10:12 Booster for Pfizer series) [code = COVID-19 VACCINE (3 - Booster for Pfizer series)] Future Scheduled 2022-06-11 65+ [facility]OCCAL [facility] 16:10:12 VACCINE (4 - PPSV23 if available, else PCV20) [code = 65+ PNEUMOCOCCAL VACCINE (4 - PPSV23 if available, else PCV20)] Future Scheduled 2022-06-11 INFLUENZA VACCINE Method [facility] Test 16:10:12 [code = INFLUENZA VACCINE] Future Scheduled 2022-06-11 SHINGLES VACCINES ([address] [facility] Test 16:10:12 of 2) [code = SHINGLES VACCINES (1 of 2)] Future Scheduled 2022-06-11 BREAST CANCER [facility] Test 16:10:12 SCREENING [code = BREAST CANCER SCREENING] Future Scheduled 2022-06-11 COLONOSCOPY SCREENING [facility] Test 16:10:12 [code = COLONOSCOPY SCREENING] Future Scheduled 2022-06-11 HEPATITIS B VACCINES Met [facility] Test 16:10:12 (1 of 3 - Risk 3-dose series) [code = HEPATITIS B VACCINES (1 of 3 - Risk 3-dose series)] Future Scheduled 2022-06-11 COVID-19 VACCINE (3 - [facility] Test 16:10:12 Booster for Pfizer series) [code = COVID-19 VACCINE (3 - Booster for Pfizer series)] Future Scheduled 2022-06-11 65+ [facility]OCCAL [facility] 16:10:12 VACCINE (4 - PPSV23 if available, else PCV20) [code = 65+ PNEUMOCOCCAL VACCINE (4 - PPSV23 if available, else PCV20)] Future Scheduled 2022-06-11 INFLUENZA VACCINE [facility] Test 16:10:12 [code = INFLUENZA VACCINE] Future Scheduled 2022-06-11 SHINGLES VACCINES ([address] [facility] Test 16:10:12 of 2) [code = SHINGLES VACCINES (1 of 2)] Future Scheduled 2022-06-11 BREAST CANCER [facility] Test 16:10:12 SCREENING [code = BREAST CANCER SCREENING] Future Scheduled 2022-06-11 COLONOSCOPY SCREENING [facility] Test 16:10:12 [code = COLONOSCOPY SCREENING] Future Scheduled 2022-06-11 HEPATITIS B VACCINES Met [facility] Test 16:10:12 (1 of 3 - Risk 3-dose series) [code = HEPATITIS B VACCINES (1 of 3 - Risk 3-dose series)] Future Scheduled 2022-06-11 COVID-19 VACCINE (3 - Me [facility] Test 16:10:12 Booster for Pfizer series) [code = COVID-19 VACCINE (3 - Booster for Pfizer series)] Future Scheduled 2022-06-11 65+ [facility]OCCAL [facility] Test 16:10:12 VACCINE (4 - PPSV23 if available, else PCV20) [code = 65+ PNEUMOCOCCAL VACCINE (4 - PPSV23 if available, else PCV20)] Future Scheduled 2022-06-11 INFLUENZA VACCINE Method [facility] Test 16:10:12 [code = INFLUENZA VACCINE] Future Scheduled 2022-06-11 SHINGLES VACCINES ([address] [facility] Test 16:10:12 of 2) [code = SHINGLES VACCINES (1 of 2)] Future Scheduled 2022-06-11 BREAST CANCER [facility] Test 16:10:12 SCREENING [code = BREAST CANCER SCREENING] Future Scheduled 2022-06-11 COLONOSCOPY SCREENING Me [facility] Test 16:10:12 [code = COLONOSCOPY SCREENING] Future Scheduled 2022-06-11 HEPATITIS B VACCINES Met [facility] Test 16:10:12 (1 of 3 - Risk 3-dose series) [code = HEPATITIS B VACCINES (1 of 3 - Risk 3-dose series)] Future Scheduled 2022-06-11 COVID-19 VACCINE (3 - Me [facility] Test 16:10:12 Booster for Pfizer series) [code = COVID-19 VACCINE (3 - Booster for Pfizer series)] Future Scheduled 2022-06-11 65+ [facility]OCOCCAL [facility] Test 16:10:12 VACCINE (4 - PPSV23 if available, else PCV20) [code = 65+ PNEUMOCOCCAL VACCINE (4 - PPSV23 if available, else PCV20)] Future Scheduled 2022-06-11 INFLUENZA VACCINE [facility] Test 16:10:12 [code = INFLUENZA VACCINE] Future Scheduled 2022-06-11 SHINGLES VACCINES ([address] [facility] Test 16:10:12 of 2) [code = SHINGLES VACCINES (1 of 2)] Future Scheduled 2022-06-11 BREAST CANCER [facility] Test 16:10:12 SCREENING [code = BREAST CANCER SCREENING] Future Scheduled 2022-06-11 COLONOSCOPY SCREENING Me [facility] Test 16:10:12 [code = COLONOSCOPY SCREENING] Future Scheduled 2022-06-11 HEPATITIS B VACCINES Met [facility] Test 16:10:12 (1 of 3 - Risk 3-dose series) [code = HEPATITIS B VACCINES (1 of 3 - Risk 3-dose series)] Future Scheduled 2022-06-11 COVID-19 VACCINE (3 - Me [facility] Test 16:10:12 Booster for Pfizer series) [code = COVID-19 VACCINE (3 - Booster for Pfizer series)] Future Scheduled 2022-06-11 65+ [facility]OCOCCAL [facility] Test 16:10:12 VACCINE (4 - PPSV23 if available, else PCV20) [code = 65+ PNEUMOCOCCAL VACCINE (4 - PPSV23 if available, else PCV20)] Future Scheduled 2022-06-11 INFLUENZA VACCINE [facility] Test 16:10:12 [code = INFLUENZA VACCINE] Future Scheduled 2022-05-10 SHINGLES VACCINES ([address] [facility] Test 10:21:35 of 2) [code = SHINGLES VACCINES (1 of 2)] Future Scheduled 2022-05-10 BREAST CANCER [facility] Test 10:21:35 SCREENING [code = BREAST CANCER SCREENING] Future Scheduled 2022-05-10 COLONOSCOPY SCREENING [facility] Test 10:21:35 [code = COLONOSCOPY SCREENING] Future Scheduled 2022-05-10 HEPATITIS B VACCINES Met [facility] Test 10:21:35 (1 of 3 - Risk 3-dose series) [code = HEPATITIS B VACCINES (1 of 3 - Risk 3-dose series)] Future Scheduled 2022-05-10 COVID-19 VACCINE (3 - Me [facility] Test 10:21:35 Booster for Pfizer series) [code = COVID-19 VACCINE (3 - Booster for Pfizer series)] Future Scheduled 2022-05-10 65+ P[facility]OCOCCAL [facility] Test 10:21:35 VACCINE (4 - PPSV23 if available, else PCV20) [code = 65+ PNEUMOCOCCAL VACCINE (4 - PPSV23 if available, else PCV20)] Future Scheduled 2022-05-10 INFLUENZA VACCINE [facility] Test 10:21:35 [code = INFLUENZA VACCINE] Future Scheduled 2022-05-10 SHINGLES VACCINES ([address] [facility] Test 10:21:35 of 2) [code = SHINGLES VACCINES (1 of 2)] Future Scheduled 2022-05-10 BREAST CANCER [facility] Test 10:21:35 SCREENING [code = BREAST CANCER SCREENING] Future Scheduled 2022-05-10 COLONOSCOPY SCREENING [facility] Test 10:21:35 [code = COLONOSCOPY SCREENING] Future Scheduled 2022-05-10 HEPATITIS B VACCINES Met [facility] Test 10:21:35 (1 of 3 - Risk 3-dose series) [code = HEPATITIS B VACCINES (1 of 3 - Risk 3-dose series)] Future Scheduled 2022-05-10 COVID-19 VACCINE (3 - Me [facility] Test 10:21:35 Booster for Pfizer series) [code = COVID-19 VACCINE (3 - Booster for Pfizer series)] Future Scheduled 2022-05-10 65+ [facility]OCOCCAL [facility] 10:21:35 VACCINE (4 - PPSV23 if available, else PCV20) [code = 65+ PNEUMOCOCCAL VACCINE (4 - PPSV23 if available, else PCV20)] Future Scheduled 2022-05-10 INFLUENZA VACCINE [facility] Test 10:21:35 [code = INFLUENZA VACCINE] Future Scheduled 2022-05-06 SHINGLES VACCINES ([address] [facility] Test 14:03:13 of 2) [code = SHINGLES VACCINES (1 of 2)] Future Scheduled 2022-05-06 BREAST CANCER [facility] Test 14:03:13 SCREENING [code = BREAST CANCER SCREENING] Future Scheduled 2022-05-06 COLONOSCOPY SCREENING [facility] Test 14:03:13 [code = COLONOSCOPY SCREENING] Future Scheduled 2022-05-06 HEPATITIS B VACCINES Met [facility] Test 14:03:13 (1 of 3 - Risk 3-dose series) [code = HEPATITIS B VACCINES (1 of 3 - Risk 3-dose series)] Future Scheduled 2022-05-06 COVID-19 VACCINE (3 - [facility] Test 14:03:13 Booster for Pfizer series) [code = COVID-19 VACCINE (3 - Booster for Pfizer series)] Future Scheduled 2022-05-06 65+ [facility]OCOCCAL [facility] Test 14:03:13 VACCINE (4 - PPSV23 if available, else PCV20) [code = 65+ PNEUMOCOCCAL VACCINE (4 - PPSV23 if available, else PCV20)] Future Scheduled 2022-05-06 INFLUENZA VACCINE [facility] Test 14:03:13 [code = INFLUENZA VACCINE] Future Scheduled 2022-04-30 SHINGLES VACCINES ([address] [facility] Test 01:07:32 of 2) [code = SHINGLES VACCINES (1 of 2)] Future Scheduled 2022-04-30 BREAST CANCER [facility] Test 01:07:32 SCREENING [code = BREAST CANCER SCREENING] Future Scheduled 2022-04-30 COLONOSCOPY SCREENING [facility] Test 01:07:32 [code = COLONOSCOPY SCREENING] Future Scheduled 2022-04-30 HEPATITIS B VACCINES Met [facility] Test 01:07:32 (1 of 3 - Risk 3-dose series) [code = HEPATITIS B VACCINES (1 of 3 - Risk 3-dose series)] Future Scheduled 2022-04-30 COVID-19 VACCINE (3 - [facility] Test 01:07:32 Booster for Pfizer series) [code = COVID-19 VACCINE (3 - Booster for Pfizer series)] Future Scheduled 2022-04-30 65+ PNEUMOCOCCAL [facility] Test 01:07:32 VACCINE (4 - PPSV23 if available, else PCV20) [code = 65+ PNEUMOCOCCAL VACCINE (4 - PPSV23 if available, else PCV20)] Future Scheduled 2022-04-30 INFLUENZA VACCINE [facility] Test 01:07:32 [code = INFLUENZA VACCINE] Future Scheduled 2022-04-30 SHINGLES VACCINES ([address] [facility] Test 01:07:32 of 2) [code = SHINGLES VACCINES (1 of 2)] Future Scheduled 2022-04-30 BREAST CANCER [facility] Test 01:07:32 SCREENING [code = BREAST CANCER SCREENING] Future Scheduled 2022-04-30 COLONOSCOPY SCREENING [facility] Test 01:07:32 [code = COLONOSCOPY SCREENING] Future Scheduled 2022-04-30 HEPATITIS B VACCINES Met [facility] Test 01:07:32 (1 of 3 - Risk 3-dose series) [code = HEPATITIS B VACCINES (1 of 3 - Risk 3-dose series)] Future Scheduled 2022-04-30 COVID-19 VACCINE (3 - [facility] Test 01:07:32 Booster for Pfizer series) [code = COVID-19 VACCINE (3 - Booster for Pfizer series)] Future Scheduled 2022-04-30 65+ PNEUMOCOCCAL [facility] Test 01:07:32 VACCINE (4 - PPSV23 if available, else PCV20) [code = 65+ PNEUMOCOCCAL VACCINE (4 - PPSV23 if available, else PCV20)] Future Scheduled 2022-04-30 INFLUENZA VACCINE Method [facility] Test 01:07:32 [code = INFLUENZA VACCINE] Future Scheduled 2022-04-30 SHINGLES VACCINES ([address] [facility] Test 01:07:32 of 2) [code = SHINGLES VACCINES (1 of 2)] Future Scheduled 2022-04-30 BREAST CANCER [facility] Test 01:07:32 SCREENING [code = BREAST CANCER SCREENING] Future Scheduled 2022-04-30 COLONOSCOPY SCREENING [facility] Test 01:07:32 [code = COLONOSCOPY SCREENING] Future Scheduled 2022-04-30 HEPATITIS B VACCINES Met [facility] Test 01:07:32 (1 of 3 - Risk 3-dose series) [code = HEPATITIS B VACCINES (1 of 3 - Risk 3-dose series)] Future Scheduled 2022-04-30 COVID-19 VACCINE (3 - [facility] Test 01:07:32 Booster for Pfizer series) [code = COVID-19 VACCINE (3 - Booster for Pfizer series)] Future Scheduled 2022-04-30 65+ [facility]OCOCCAL [facility] Test 01:07:32 VACCINE (4 - PPSV23 if available, else PCV20) [code = 65+ PNEUMOCOCCAL VACCINE (4 - PPSV23 if available, else PCV20)] Future Scheduled 2022-04-30 INFLUENZA VACCINE Method [facility] Test 01:07:32 [code = INFLUENZA VACCINE] Future Scheduled 2022-04-25 SHINGLES VACCINES ([address] [facility] Test 01:45:02 of 2) [code = SHINGLES VACCINES (1 of 2)] Future Scheduled 2022-04-25 BREAST CANCER [facility] Test 01:45:02 SCREENING [code = BREAST CANCER SCREENING] Future Scheduled 2022-04-25 COLONOSCOPY SCREENING [facility] Test 01:45:02 [code = COLONOSCOPY SCREENING] Future Scheduled 2022-04-25 HEPATITIS B VACCINES Met [facility] Test 01:45:02 (1 of 3 - Risk 3-dose series) [code = HEPATITIS B VACCINES (1 of 3 - Risk 3-dose series)] Future Scheduled 2022-04-25 COVID-19 VACCINE (3 - [facility] Test 01:45:02 Booster for Pfizer series) [code = COVID-19 VACCINE (3 - Booster for Pfizer series)] Future Scheduled 2022-04-25 65+ [facility]OCOCCAL [facility] Test 01:45:02 VACCINE (4 - PPSV23 if available, else PCV20) [code = 65+ PNEUMOCOCCAL VACCINE (4 - PPSV23 if available, else PCV20)] Future Scheduled 2022-04-25 INFLUENZA VACCINE [facility] Test 01:45:02 [code = INFLUENZA VACCINE] Future Scheduled 2022-03-25 SHINGLES VACCINES ([address] [facility] Test 14:48:42 of 2) [code = SHINGLES VACCINES (1 of 2)] Future Scheduled 2022-03-25 BREAST CANCER [facility] Test 14:48:42 SCREENING [code = BREAST CANCER SCREENING] Future Scheduled 2022-03-25 COLONOSCOPY SCREENING [facility] Test 14:48:42 [code = COLONOSCOPY SCREENING] Future Scheduled 2022-03-25 HEPATITIS B VACCINES Met [facility] Test 14:48:42 (1 of 3 - Risk 3-dose series) [code = HEPATITIS B VACCINES (1 of 3 - Risk 3-dose series)] Future Scheduled 2022-03-25 COVID-19 VACCINE (3 - Me [facility] Test 14:48:42 Booster for Pfizer series) [code = COVID-19 VACCINE (3 - Booster for Pfizer series)] Future Scheduled 2022-03-25 65+ P[facility]UMOCOCCAL [facility] Test 14:48:42 VACCINE (4 - PPSV23 if available, else PCV20) [code = 65+ PNEUMOCOCCAL VACCINE (4 - PPSV23 if available, else PCV20)] Future Scheduled 2022-03-25 INFLUENZA VACCINE [facility] Test 14:48:42 [code = INFLUENZA VACCINE] Future Scheduled 2022-03-25 SHINGLES VACCINES ([address] [facility] Test 14:48:42 of 2) [code = SHINGLES VACCINES (1 of 2)] Future Scheduled 2022-03-25 BREAST CANCER [facility] Test 14:48:42 SCREENING [code = BREAST CANCER SCREENING] Future Scheduled 2022-03-25 COLONOSCOPY SCREENING [facility] Test 14:48:42 [code = COLONOSCOPY SCREENING] Future Scheduled 2022-03-25 HEPATITIS B VACCINES Met [facility] Test 14:48:42 (1 of 3 - Risk 3-dose series) [code = HEPATITIS B VACCINES (1 of 3 - Risk 3-dose series)] Future Scheduled 2022-03-25 COVID-19 VACCINE (3 - Me [facility] Test 14:48:42 Booster for Pfizer series) [code = COVID-19 VACCINE (3 - Booster for Pfizer series)] Future Scheduled 2022-03-25 65+ P[facility]UMOCOCCAL [facility] 14:48:42 VACCINE (4 - PPSV23 if available, else PCV20) [code = 65+ PNEUMOCOCCAL VACCINE (4 - PPSV23 if available, else PCV20)] Future Scheduled 2022-03-25 INFLUENZA VACCINE [facility] Test 14:48:42 [code = INFLUENZA VACCINE] Future Scheduled 2022-03-25 SHINGLES VACCINES ([address] [facility] Test 14:48:42 of 2) [code = SHINGLES VACCINES (1 of 2)] Future Scheduled 2022-03-25 BREAST CANCER [facility] Test 14:48:42 SCREENING [code = BREAST CANCER SCREENING] Future Scheduled 2022-03-25 COLONOSCOPY SCREENING [facility] Test 14:48:42 [code = COLONOSCOPY SCREENING] Future Scheduled 2022-03-25 HEPATITIS B VACCINES Met [facility] Test 14:48:42 (1 of 3 - Risk 3-dose series) [code = HEPATITIS B VACCINES (1 of 3 - Risk 3-dose series)] Future Scheduled 2022-03-25 COVID-19 VACCINE (3 - [facility] Test 14:48:42 Booster for Pfizer series) [code = COVID-19 VACCINE (3 - Booster for Pfizer series)] Future Scheduled 2022-03-25 65+ P[facility]OCOCCAL [facility] Test 14:48:42 VACCINE (4 - PPSV23 if available, else PCV20) [code = 65+ PNEUMOCOCCAL VACCINE (4 - PPSV23 if available, else PCV20)] Future Scheduled 2022-03-25 INFLUENZA VACCINE [facility] Test 14:48:42 [code = INFLUENZA VACCINE] Future Scheduled 2022-03-25 SHINGLES VACCINES ([address] [facility] Test 14:48:42 of 2) [code = SHINGLES VACCINES (1 of 2)] Future Scheduled 2022-03-25 BREAST CANCER [facility] Test 14:48:42 SCREENING [code = BREAST CANCER SCREENING] Future Scheduled 2022-03-25 COLONOSCOPY SCREENING Me [facility] Test 14:48:42 [code = COLONOSCOPY SCREENING] Future Scheduled 2022-03-25 HEPATITIS B VACCINES Met [facility] Test 14:48:42 (1 of 3 - Risk 3-dose series) [code = HEPATITIS B VACCINES (1 of 3 - Risk 3-dose series)] Future Scheduled 2022-03-25 COVID-19 VACCINE (3 - Me [facility] Test 14:48:42 Booster for Pfizer series) [code = COVID-19 VACCINE (3 - Booster for Pfizer series)] Future Scheduled 2022-03-25 65+ [facility] 14:48:42 VACCINE (4 - PPSV23 if available, else PCV20) [code = 65+ PNEUMOCOCCAL VACCINE (4 - PPSV23 if available, else PCV20)] Future Scheduled 2022-03-25 INFLUENZA VACCINE [facility] Test 14:48:42 [code = INFLUENZA VACCINE] Future Scheduled 2022-03-25 SHINGLES VACCINES ([address] [facility] Test 14:48:42 of 2) [code = SHINGLES VACCINES (1 of 2)] Future Scheduled 2022-03-25 BREAST CANCER [facility] Test 14:48:42 SCREENING [code = BREAST CANCER SCREENING] Future Scheduled 2022-03-25 COLONOSCOPY SCREENING [facility] Test 14:48:42 [code = COLONOSCOPY SCREENING] Future Scheduled 2022-03-25 HEPATITIS B VACCINES Met [facility] Test 14:48:42 (1 of 3 - Risk 3-dose series) [code = HEPATITIS B VACCINES (1 of 3 - Risk 3-dose series)] Future Scheduled 2022-03-25 COVID-19 VACCINE (3 - Me [facility] Test 14:48:42 Booster for Pfizer [...] Future Scheduled 2022-03-25 SHINGLES VACCINES ([address] [facility] Test 14:48:42 of 2) [code = SHINGLES VACCINES (1 of 2)] Future Scheduled 2022-03-25 BREAST CANCER [facility] Test 14:48:42 SCREENING [code = BREAST CANCER SCREENING] Future Scheduled 2022-03-25 COLONOSCOPY SCREENING [facility] Test 14:48:42 [code = COLONOSCOPY SCREENING] Future Scheduled 2022-03-25 HEPATITIS B VACCINES Met [facility] Test 14:48:42 (1 of 3 - Risk 3-dose series) [code = HEPATITIS B VACCINES (1 of 3 - Risk 3-dose series)] Future Scheduled 2022-03-25 COVID-19 VACCINE (3 - [facility] Test 14:48:42 Booster for Pfizer series) [code = COVID-19 VACCINE (3 - Booster for Pfizer series)] Future Scheduled 2022-03-25 65+ P[facility]UMOCOCCAL [facility] Test 14:48:42 VACCINE (4 - PPSV23 if available, else PCV20) [code = 65+ PNEUMOCOCCAL VACCINE (4 - PPSV23 if available, else PCV20)] Future Scheduled 2022-03-25 INFLUENZA VACCINE [facility] Test 14:48:42 [code = INFLUENZA VACCINE] Future Scheduled 2022-03-25 SHINGLES VACCINES ([address] [facility] Test 14:48:42 of 2) [code = SHINGLES VACCINES (1 of 2)] Future Scheduled 2022-03-25 BREAST CANCER [facility] Test 14:48:42 SCREENING [code = BREAST CANCER SCREENING] Future Scheduled 2022-03-25 COLONOSCOPY SCREENING [facility] Test 14:48:42 [code = COLONOSCOPY SCREENING] Future Scheduled 2022-03-25 HEPATITIS B VACCINES Met [facility] Test 14:48:42 (1 of 3 - Risk 3-dose series) [code = HEPATITIS B VACCINES (1 of 3 - Risk 3-dose series)] Future Scheduled 2022-03-25 COVID-19 VACCINE (3 - [facility] Test 14:48:42 Booster for Pfizer series) [code = COVID-19 VACCINE (3 - Booster for Pfizer series)] Future Scheduled 2022-03-25 65+ P[facility]UMOCOCCAL [facility] Test 14:48:42 VACCINE (4 - PPSV23 if available, else PCV20) [code = 65+ PNEUMOCOCCAL VACCINE (4 - PPSV23 if available, else PCV20)] Future Scheduled 2022-03-25 INFLUENZA VACCINE [facility] Test 14:48:42 [code = INFLUENZA VACCINE] Future Scheduled 2022-03-25 SHINGLES VACCINES ([address] [facility] Test 14:48:42 of 2) [code = SHINGLES VACCINES (1 of 2)] Future Scheduled 2022-03-25 BREAST CANCER [facility] Test 14:48:42 SCREENING [code = BREAST CANCER SCREENING] Future Scheduled 2022-03-25 COLONOSCOPY SCREENING [facility] Test 14:48:42 [code = COLONOSCOPY SCREENING] Future Scheduled 2022-03-25 HEPATITIS B VACCINES Met [facility] Test 14:48:42 (1 of 3 - Risk 3-dose series) [code = HEPATITIS B VACCINES (1 of 3 - Risk 3-dose series)] Future Scheduled 2022-03-25 COVID-19 VACCINE (3 - Me [facility] Test 14:48:42 Booster for Pfizer series) [code = COVID-19 VACCINE (3 - Booster for Pfizer series)] Future Scheduled 2022-03-25 65+ P[facility]UMOCOCCAL [facility] Test 14:48:42 VACCINE (4 - PPSV23 if available, else PCV20) [code = 65+ PNEUMOCOCCAL VACCINE (4 - PPSV23 if available, else PCV20)] Future Scheduled 2022-03-25 INFLUENZA VACCINE [facility] Test 14:48:42 [code = INFLUENZA VACCINE] Future Scheduled 2022-03-25 SHINGLES VACCINES ([address] [facility] Test 14:48:42 of 2) [code = SHINGLES VACCINES (1 of 2)] Future Scheduled 2022-03-25 BREAST CANCER [facility] Test 14:48:42 SCREENING [code = BREAST CANCER SCREENING] Future Scheduled 2022-03-25 COLONOSCOPY SCREENING [facility] Test 14:48:42 [code = COLONOSCOPY SCREENING] Future Scheduled 2022-03-25 HEPATITIS B VACCINES Met [facility] Test 14:48:42 (1 of 3 - Risk 3-dose series) [code = HEPATITIS B VACCINES (1 of 3 - Risk 3-dose series)] Future Scheduled 2022-03-25 COVID-19 VACCINE (3 - Me [facility] Test 14:48:42 Booster for Pfizer series) [code = COVID-19 VACCINE (3 - Booster for Pfizer series)] Future Scheduled 2022-03-25 65+ PNEUMOCOCCAL [facility] 14:48:42 VACCINE (4 - PPSV23 if available, else PCV20) [code = 65+ PNEUMOCOCCAL VACCINE (4 - PPSV23 if available, else PCV20)] Future Scheduled 2022-03-25 INFLUENZA VACCINE Method [facility] Test 14:48:42 [code = INFLUENZA VACCINE] Future Scheduled 2022-03-04 SHINGLES VACCINES ([address] [facility] Test 14:03:57 of 2) [code = SHINGLES VACCINES (1 of 2)] Future Scheduled 2022-03-04 BREAST CANCER [facility] Test 14:03:57 SCREENING [code = BREAST CANCER SCREENING] Future Scheduled 2022-03-04 COLONOSCOPY SCREENING [facility] Test 14:03:57 [code = COLONOSCOPY SCREENING] Future Scheduled 2022-03-04 HEPATITIS B VACCINES Met [facility] Test 14:03:57 (1 of 3 - Risk 3-dose series) [code = HEPATITIS B VACCINES (1 of 3 - Risk 3-dose series)] Future Scheduled 2022-03-04 COVID-19 VACCINE (3 - [facility] Test 14:03:57 Booster for Pfizer series) [code = COVID-19 VACCINE (3 - Booster for Pfizer series)] Future Scheduled 2022-03-04 65+ PNEUMOCOCCAL [facility] 14:03:57 VACCINE (4 - PPSV23 if available, else PCV20) [code = 65+ PNEUMOCOCCAL VACCINE (4 - PPSV23 if available, else PCV20)] Future Scheduled 2022-03-04 INFLUENZA VACCINE Method [facility] Test 14:03:57 [code = INFLUENZA VACCINE] Future Scheduled 2022-03-04 SHINGLES VACCINES ([address] [facility] Test 14:03:57 of 2) [code = SHINGLES VACCINES (1 of 2)] Future Scheduled 2022-03-04 BREAST CANCER [facility] Test 14:03:57 SCREENING [code = BREAST CANCER SCREENING] Future Scheduled 2022-03-04 COLONOSCOPY SCREENING [facility] Test 14:03:57 [code = COLONOSCOPY SCREENING] Future Scheduled 2022-03-04 HEPATITIS B VACCINES Met [facility] Test 14:03:57 (1 of 3 - Risk 3-dose series) [code = HEPATITIS B VACCINES (1 of 3 - Risk 3-dose series)] Future Scheduled 2022-03-04 COVID-19 VACCINE (3 - Me [facility] Test 14:03:57 Booster for Pfizer series) [code = COVID-19 VACCINE (3 - Booster for Pfizer series)] Future Scheduled 2022-03-04 65+ PNEUMOCOCCAL [facility] 14:03:57 VACCINE (4 - PPSV23 if available, else PCV20) [code = 65+ PNEUMOCOCCAL VACCINE (4 - PPSV23 if available, else PCV20)] Future Scheduled 2022-03-04 INFLUENZA VACCINE [facility] Test 14:03:57 [code = INFLUENZA VACCINE] Future Scheduled 2022-03-04 SHINGLES VACCINES ([address] [facility] Test 14:03:57 of 2) [code = SHINGLES VACCINES (1 of 2)] Future Scheduled 2022-03-04 BREAST CANCER [facility] Test 14:03:57 SCREENING [code = BREAST CANCER SCREENING] Future Scheduled 2022-03-04 COLONOSCOPY SCREENING [facility] Test 14:03:57 [code = COLONOSCOPY SCREENING] Future Scheduled 2022-03-04 HEPATITIS B VACCINES Met [facility] Test 14:03:57 (1 of 3 - Risk 3-dose series) [code = HEPATITIS B VACCINES (1 of 3 - Risk 3-dose series)] Future Scheduled 2022-03-04 COVID-19 VACCINE (3 - [facility] Test 14:03:57 Booster for Pfizer series) [code = COVID-19 VACCINE (3 - Booster for Pfizer series)] Future Scheduled 2022-03-04 65+ PNEUMOCOCCAL [facility] 14:03:57 VACCINE (4 - PPSV23 if available, else PCV20) [code = 65+ PNEUMOCOCCAL VACCINE (4 - PPSV23 if available, else PCV20)] Future Scheduled 2022-03-04 INFLUENZA VACCINE [facility] Test 14:03:57 [code = INFLUENZA VACCINE] Future Scheduled 2022-03-04 SHINGLES VACCINES ([address] [facility] Test 14:03:57 of 2) [code = SHINGLES VACCINES (1 of 2)] Future Scheduled 2022-03-04 BREAST CANCER [facility] Test 14:03:57 SCREENING [code = BREAST CANCER SCREENING] Future Scheduled 2022-03-04 COLONOSCOPY SCREENING [facility] Test 14:03:57 [code = COLONOSCOPY SCREENING] Future Scheduled 2022-03-04 HEPATITIS B VACCINES Met [facility] Test 14:03:57 (1 of 3 - Risk 3-dose series) [code = HEPATITIS B VACCINES (1 of 3 - Risk 3-dose series)] Future Scheduled 2022-03-04 COVID-19 VACCINE (3 - Me [facility] Test 14:03:57 Booster for Pfizer series) [code = COVID-19 VACCINE (3 - Booster for Pfizer series)] Future Scheduled 2022-03-04 65+ PNEUMOCOCCAL [facility] 14:03:57 VACCINE (4 - PPSV23 if available, else PCV20) [code = 65+ PNEUMOCOCCAL VACCINE (4 - PPSV23 if available, else PCV20)] Future Scheduled 2022-03-04 INFLUENZA VACCINE [facility] Test 14:03:57 [code = INFLUENZA VACCINE] Future Scheduled 2022-02-11 SHINGLES VACCINES ([address] [facility] Test 13:39:12 of 2) [code = SHINGLES VACCINES (1 of 2)] Future Scheduled 2022-02-11 BREAST CANCER [facility] Test 13:39:12 SCREENING [code = BREAST CANCER SCREENING] Future Scheduled 2022-02-11 COLONOSCOPY SCREENING [facility] Test 13:39:12 [code = COLONOSCOPY SCREENING] Future Scheduled 2022-02-11 HEPATITIS B VACCINES Met [facility] Test 13:39:12 (1 of 3 - Risk 3-dose series) [code = HEPATITIS B VACCINES (1 of 3 - Risk 3-dose series)] Future Scheduled 2022-02-11 COVID-19 VACCINE (3 - [facility] Test 13:39:12 Booster for Pfizer series) [code = COVID-19 VACCINE (3 - Booster for Pfizer series)] Future Scheduled 2022-02-11 65+ PNEUMOCOCCAL [facility] 13:39:12 VACCINE (4 - PPSV23 or PCV20) [code = 65+ PNEUMOCOCCAL VACCINE (4 - PPSV23 or PCV20)] Future Scheduled 2022-02-11 INFLUENZA VACCINE [facility] Test 13:39:12 [code = INFLUENZA VACCINE] Future Scheduled 2022-01-29 SHINGLES VACCINES ([address] [facility] Test 14:07:20 of 2) [code = SHINGLES VACCINES (1 of 2)] Future Scheduled 2022-01-29 BREAST CANCER [facility] Test 14:07:20 SCREENING [code = BREAST CANCER SCREENING] Future Scheduled 2022-01-29 COLONOSCOPY SCREENING [facility] Test 14:07:20 [code = COLONOSCOPY SCREENING] Future Scheduled 2022-01-29 HEPATITIS B VACCINES Met [facility] Test 14:07:20 (1 of 3 - Risk 3-dose series) [code = HEPATITIS B VACCINES (1 of 3 - Risk 3-dose series)] Future Scheduled 2022-01-29 COVID-19 VACCINE (3 - Me [facility] Test 14:07:20 Booster for Pfizer series) [code = COVID-19 VACCINE (3 - Booster for Pfizer series)] Future Scheduled 2022-01-29 65+ PNEUMOCOCCAL [facility] Test 14:07:20 VACCINE (4 - PPSV23 or PCV20) [code = 65+ PNEUMOCOCCAL VACCINE (4 - PPSV23 or PCV20)] Future Scheduled 2022-01-29 INFLUENZA VACCINE Method [facility] Test 14:07:20 [code = INFLUENZA VACCINE] Future Scheduled 2022-01-29 SHINGLES VACCINES ([address] [facility] Test 14:07:20 of 2) [code = SHINGLES VACCINES (1 of 2)] Future Scheduled 2022-01-29 BREAST CANCER [facility] Test 14:07:20 SCREENING [code = BREAST CANCER SCREENING] Future Scheduled 2022-01-29 COLONOSCOPY SCREENING [facility] Test 14:07:20 [code = COLONOSCOPY SCREENING] Future Scheduled 2022-01-29 HEPATITIS B VACCINES Met [facility] Test 14:07:20 (1 of 3 - Risk 3-dose series) [code = HEPATITIS B VACCINES (1 of 3 - Risk 3-dose series)] Future Scheduled 2022-01-29 COVID-19 VACCINE (3 - [facility] Test 14:07:20 Booster for Pfizer series) [code = COVID-19 VACCINE (3 - Booster for Pfizer series)] Future Scheduled 2022-01-29 65+ PNEUMOCOCCAL [facility] 14:07:20 VACCINE (4 - PPSV23 or PCV20) [code = 65+ PNEUMOCOCCAL VACCINE (4 - PPSV23 or PCV20)] Future Scheduled 2022-01-29 INFLUENZA VACCINE Method [facility] Test 14:07:20 [code = INFLUENZA VACCINE] Future Scheduled 2022-01-29 SHINGLES VACCINES ([address] [facility] Test 14:07:20 of 2) [code = SHINGLES VACCINES (1 of 2)] Future Scheduled 2022-01-29 BREAST CANCER [facility] Test 14:07:20 SCREENING [code = BREAST CANCER SCREENING] Future Scheduled 2022-01-29 COLONOSCOPY SCREENING [facility] Test 14:07:20 [code = COLONOSCOPY SCREENING] Future Scheduled 2022-01-29 HEPATITIS B VACCINES Met [facility] Test 14:07:20 (1 of 3 - Risk 3-dose series) [code = HEPATITIS B VACCINES (1 of 3 - Risk 3-dose series)] Future Scheduled 2022-01-29 COVID-19 VACCINE (3 - [facility] Test 14:07:20 Booster for Pfizer series) [code = COVID-19 VACCINE (3 - Booster for Pfizer series)] Future Scheduled 2022-01-29 65+ PNEUMOCOCCAL [facility] Test 14:07:20 VACCINE (4 - PPSV23 or PCV20) [code = 65+ PNEUMOCOCCAL VACCINE (4 - PPSV23 or PCV20)] Future Scheduled 2022-01-29 INFLUENZA VACCINE [facility] Test 14:07:20 [code = INFLUENZA VACCINE] Future Scheduled 2022-01-29 SHINGLES VACCINES ([address] [facility] Test 14:07:20 of 2) [code = SHINGLES VACCINES (1 of 2)] Future Scheduled 2022-01-29 BREAST CANCER [facility] Test 14:07:20 SCREENING [code = BREAST CANCER SCREENING] Future Scheduled 2022-01-29 COLONOSCOPY SCREENING [facility] Test 14:07:20 [code = COLONOSCOPY SCREENING] Future Scheduled 2022-01-29 HEPATITIS B VACCINES Met [facility] Test 14:07:20 (1 of 3 - Risk 3-dose series) [code = HEPATITIS B VACCINES (1 of 3 - Risk 3-dose series)] Future Scheduled 2022-01-29 COVID-19 VACCINE (3 - [facility] Test 14:07:20 Booster for Pfizer series) [code = COVID-19 VACCINE (3 - Booster for Pfizer series)] Future Scheduled 2022-01-29 65+ PNEUMOCOCCAL [facility] Test 14:07:20 VACCINE (4 - PPSV23 or PCV20) [code = 65+ PNEUMOCOCCAL VACCINE (4 - PPSV23 or PCV20)] Future Scheduled 2022-01-29 INFLUENZA VACCINE Method [facility] Test 14:07:20 [code = INFLUENZA VACCINE] Future Scheduled 2022-01-20 SHINGLES VACCINES ([address] [facility] Test 06:12:34 of 2) [code = SHINGLES VACCINES (1 of 2)] Future Scheduled 2022-01-20 Screening for [facility] Test 06:12:34 malignant neoplasm of cervix (procedure) [code = [id number]] Future Scheduled 2022-01-20 BREAST CANCER [facility] Test 06:12:34 SCREENING [code = BREAST CANCER SCREENING] Future Scheduled 2022-01-20 COLONOSCOPY SCREENING [facility] Test 06:12:34 [code = COLONOSCOPY SCREENING] Future Scheduled 2022-01-20 HEPATITIS B VACCINES Met [facility] Test 06:12:34 (1 of 3 - Risk 3-dose series) [code = HEPATITIS B VACCINES (1 of 3 - Risk 3-dose series)] Future Scheduled 2022-01-20 COVID-19 VACCINE (3 - [facility] Test 06:12:34 Booster for Pfizer series) [code = COVID-19 VACCINE (3 - Booster for Pfizer series)] Future Scheduled 2022-01-20 65+ [facility] System ([facility]) Test 06:12:34 VACCINE (4 - PPSV23 or PCV20) [code = 65+ PNEUMOCOCCAL VACCINE (4 - PPSV23 or PCV20)] Future Scheduled 2022-01-20 INFLUENZA VACCINE Method [facility] Test 06:12:34 [code = INFLUENZA VACCINE] Future Scheduled 2022-01-16 SHINGLES VACCINES ([address] [facility] Test 12:09:25 of 2) [code = SHINGLES VACCINES (1 of 2)] Future Scheduled 2022-01-16 Screening for [facility] Test 12:09:25 malignant neoplasm of cervix (procedure) [code = 015832698] Future Scheduled 2022-01-16 BREAST CANCER [facility] Test 12:09:25 SCREENING [code = BREAST CANCER SCREENING] Future Scheduled 2022-01-16 COLONOSCOPY SCREENING [facility] Test 12:09:25 [code = COLONOSCOPY SCREENING] Future Scheduled 2022-01-16 HEPATITIS B VACCINES Met [facility] Test 12:09:25 (1 of 3 - Risk 3-dose series) [code = HEPATITIS B VACCINES (1 of 3 - Risk 3-dose series)] Future Scheduled 2022-01-16 COVID-19 VACCINE (3 - [facility] Test 12:09:25 Booster for Pfizer series) [code = COVID-19 VACCINE (3 - Booster for Pfizer series)] Future Scheduled 2022-01-16 65+ PNEUMOCOCCAL [facility] Test 12:09:25 VACCINE (4 - PPSV23 or PCV20) [code = 65+ PNEUMOCOCCAL VACCINE (4 - PPSV23 or PCV20)] Future Scheduled 2022-01-16 INFLUENZA VACCINE Method [facility] Test 12:09:25 [code = INFLUENZA VACCINE] Future Scheduled 2022-01-14 SHINGLES VACCINES ([address] [facility] Test 04:11:46 of 2) [code = SHINGLES VACCINES (1 of 2)] Future Scheduled 2022-01-14 Screening for [facility] Test 04:11:46 malignant neoplasm of cervix (procedure) [code = 732301131] Future Scheduled 2022-01-14 BREAST CANCER [facility] Test 04:11:46 SCREENING [code = BREAST CANCER SCREENING] Future Scheduled 2022-01-14 COLONOSCOPY SCREENING [facility] Test 04:11:46 [code = COLONOSCOPY SCREENING] Future Scheduled 2022-01-14 HEPATITIS B VACCINES Met [facility] Test 04:11:46 (1 of 3 - Risk 3-dose series) [code = HEPATITIS B VACCINES (1 of 3 - Risk 3-dose series)] Future Scheduled 2022-01-14 COVID-19 VACCINE (3 - [facility] Test 04:11:46 Booster for Pfizer series) [code = COVID-19 VACCINE (3 - Booster for Pfizer series)] Future Scheduled 2022-01-14 65+ PNEUMOCOCCAL [facility] Test 04:11:46 VACCINE (4 - PPSV23 or PCV20) [code = 65+ PNEUMOCOCCAL VACCINE (4 - PPSV23 or PCV20)] Future Scheduled 2022-01-14 INFLUENZA VACCINE Method [facility] Test 04:11:46 [code = INFLUENZA VACCINE] Future Scheduled 2021-08-26 Screening for [facility] Test 13:02:23 malignant neoplasm of cervix (procedure) [code = 021363303] Future Scheduled 2021-08-26 BREAST CANCER [facility] Test 13:02:23 SCREENING [code = BREAST CANCER SCREENING] Future Scheduled 2021-08-26 COLONOSCOPY SCREENING [facility] Test 13:02:23 [code = COLONOSCOPY SCREENING] Future Scheduled 2021-08-26 Screening for [facility] Test 13:02:23 malignant neoplasm of lung (procedure) [code = 768384364] Future Scheduled 2021-08-26 SHINGLES VACCINES (#1) [facility] Test 13:02:23 [code = SHINGLES VACCINES (#1)] Future Scheduled 2021-08-26 COVID-19 VACCINE (3 - [facility] Test 13:02:23 Pfizer risk [...] Facility Department ID 2022-02-18 Outpatient CHW W [id number] [place] 14:30:[address] [place] [address] 2021-07-14 Outpatient SADIKOVIC, [facility] [id number] [place] 09:33:51 [facility] 2021-06-02 Outpatient HEMATPOUR, [facility] [id number] [place] 13:58:59 [facility] 2021-04-28 Outpatient HEMATPOUR, [facility] [id number] [place] 11:21:22 [facility] 2021-03-20 Emergency [facility] [id number] Univers 16:07:40 [facility] 2020-12-12 Outpatient HEMATPOUR, [facility] [id number] [place] 08:16:46 [facility] 2020-10-31 Outpatient HEMATPOUR, [facility] [id number] [place] 09:44:50 [facility] 2020-09-30 Outpatient HEMATPOUR, [facility] [id number] [place] 13:16:03 [facility]alt h 2022-05-20 2022-05-20 Critical access hospital 1.2.840.114 [id number] Univers 00:00:00 00:00:00 [facility] 350.1.13.10 i ty [id number] [address] 2022-05-10 2022-05-10 Emergency [facility] [id number] Univers 10:30:00 16:31:00 HOME ity [facility] 2022-05-10 2022-05-10 Emergency Byron, TRAUMA 1.2.840.114 [id number] Univers 10:30:00 16:31:00 [facility] 350.1.13.10 [place] [id number] [facility] 014 [place] 2022-05-10 2022-05-10 Telephone [facility] [place] [facility] 1.2.840.114 99 [id number] Univers 00:00:00 00:00:00 [facility] 350.1.13.10 i [place] [id number] [address] 2022-05-08 2022-05-08 Emergency [facility] [id number] Univers 16:18:00 18:42:00 [facility]22-05-08 2022-05-08 [facility] 1.2.840.114 99 [id number] Univers 16:18:00 18:42:00 Theresa BULLOCK 350.1.13.10 ity [place] [id number] [place] 065354 [place] 2022-05-07 2022-05-07 Telephone [facility] [place] 1.2.840.114 [id number] Univers 00:00:00 00:00:00 [facility] 350.1.13.10 i ty [place] [id number] [address] 2022-05-06 2022-05-06 Emergency [facility] E[facility] [id number] Univers 14:13:00 18:19:00 ANETTE barbosa [facility] 2022-05-06 2022-05-06 Emergency [facility] 1.2.378.042 [id number] Univers 14:13:00 18:19:00 Anette BULLOCK 350.1.13.10 [facility] 4.2.7.2.[address] [facility] [id number] [address] 2022-05-06 2022-05-06 Telephone JOSÉ ANTONIO Cardenas 1.2.840.114 [id number] Univers 00:00:00 00:00:00 [facility] 350.1.13.10 i ty of [facility] 4.2.7.2.686 [facility] [id number] [address] 2022-04-22 2022-04-22 Emergency X [facility] ERT [id number] Univers 13:55:00 17:00:00 PAULETTE [facility] 2022-04-22 2022-04-22 Emergency [facility] 1.2.060.968 [id number] Univers 13:55:00 17:00:00 Paulette BULLOCK 350.1.13.10 i ty of [place] 4.2.7.2.[address] [facility] [id number] [address] 2022-04-07 2022-04-07 Outpatient R [facility], [facility] [id number] Univers 20:40:00 20:40:00 ATTENDING ity [facility] 2022-04-07 2022-04-07 Telephone Devin 1.2.840.0 [id number] Univers 00:00:00 00:00:00 Robbi Hairston 32732.1.1 i ty of 3.104.2.7 [place] .3.605798 Medica l .8 [place] 2022-03-05 2022-03-05 Leather Grainer Santiago Cardenas 1.2.840.1 [id number] Univers 13:45:00 14:00:00 Visit [facility] 67950.1.1 ity of 3.104.2.7 [place] .3.314556 Medica l .8 [place] 2022-03-05 2022-03-05 Office [facility] 1.2.948.710 [id number] Univers 13:00:00 13:30:00 Visit Santiago [facility] 350.1.13.10 i ty of CLINICS 4.2.7.2.686 Richi bach [id number] [facility] 089 [place] 2022-03-05 2022-03-05 Outpatient [facility] [id number] Univers 13:00:00 13:00:00 [facility] 2022-02-26 2022-02-26 Outpatient [facility] [id number] Univers 08:30:00 08:30:00 [facility] 2022-02-26 2022-02-26 Outpatient [facility] [id number] Univers 08:30:00 08:30:00 [facility] 2022-02-17 2022-02-17 Transition Stevo, 1.2.840.2 [id number] Univers 00:00:00 00:00:00 of Care Isaias Arredondo 72191.1.1 it y of 3.104.2.7 [place] .3.422973 Medica l .8 [place] 2022-02-10 2022-02-16 Inpatient X FRANK AKCAMDEN STAHL [id number] Univers 22:59:00 19:27:00 TOMY [facility] 2022-02-10 2022-02-16 Hospital Reilly Means 1.2.840.1 [id number] Univers 22:59:00 19:27:00 Encounter Ofe Shields 59027.1.1 ity of [place] 3.104.2.7 [place] .3.814073 Medica l .8 [place] 2022-02-11 2022-02-11 Telephone [facility], 1.2.840.7 [id number] [id number] Univers 00:00:00 00:00:00 Santiago 19851.1.1 ity of 3.104.2.7 [place] .3.131448 Medica l .8 [place] 2022-02-10 2022-02-10 Travel 1.2.840.1 1.2.846.533 [id number] Univers 00:00:00 00:00:00 29637.1.1 350.1.13.10 ity of 3.104.2.7 4.2.7.3.698 [place] .3.128399 084.8 Medica l .8 [place] 2022-01-30 2022-01-30 Telephone [place], 1.2.840.7 [id number] Univers 00:00:00 00:00:00 Santiago 89987.1.1 ity of 3.104.2.7 [place] .3.508563 Medica l .8 [place] 2022-01-06 2022-01-06 Orders Doctor FERMIN 1.2.840.114 [id number] Univers 00:00:00 00:00:00 Only Unassigned, JACKELINE 350.1.13.10 ity of [place] [facility] 4.2.7.2.686 Yomi as [id number] [facility] 009 [place] 2021-12-25 2021-12-25 Orders Doctor FERMIN 1.2.840.114 [id number] Univers 00:00:00 00:00:00 Only Unassigned, JACKELINE 350.1.13.10 ity of [place] [facility] 4.2.7.2.686 Yomi as [id number] [facility] 009 [place] 2021-12-12 2021-12-13 Emergency X Bill COLES [facility] ERT [id number] Univers 23:53:00 01:52:00 ity of [facility] 2021-12-12 2021-12-13 Emergency Bill Coles [facility] 1.2.840.114 [id number] Univers 23:53:00 01:52:00 Kiersten BULLOCK 350.1.13.10 i ty of [place] 4.2.7.2.686 [facility] [id number] [facility] 084 [place] 2021-11-20 2021-11-20 Leather Grainer [facility] UNIVERSIT 1.2.840.114 [id number] Univers 09:45:00 10:00:00 Visit Santiago Cardenas [facility] 350.1.13.10 ity of CL[place] [id number] [facility] 316 [place] 2021-11-20 2021-11-20 Office [facility] 1.2.556.731 0230 9084 Univers 08:30:00 09:00:00 Visit Santiago [facility] 350.1.13.10 i ty of [facility] 4.2.7.2.[place] [id number] [facility] 089 [place] 2021-11-20 2021-11-20 Outpatient [facility] [id number] Univers 08:30:00 08:30:00 [facility] 2021-11-20 2021-11-20 Outpatient [facility] [id number] Univers 08:30:00 08:30:00 [facility] 2021-11-20 2021-11-20 Outpatient [facility] [id number] Univers 08:30:00 08:30:00 [facility] 2021-11-20 2021-11-20 Outpatient [facility] [id number] Univers 08:30:00 08:30:00 [facility] 2021-10-24 2021-10-24 Emergency X [facility] ERT [id number] Univers 16:27:00 22:26:00 [facility] 2021-10-24 2021-10-24 Emergency X WALKER [facility] ERT [id number] Univers 16:27:00 22:26:00 [facility] 2021-10-24 2021-10-24 Emergency Reilly Means [facility] 1.2.840. 114 [id number] Univers 16:27:00 22:26:00 Charity Mcallister GOLDEN 350.1.13.10 ity [facility] 4.2.7.2.686 [place] [id number] [facility] 084 [place] 2021-10-23 2021-10-24 Emergency [facility] [id number] Univers 20:22:00 02:57:00 [facility] 2021-10-23 2021-10-24 Emergency [facility] 1.2.586.617 [id number] Univers 20:22:00 02:57:00 Charity Christian KOBE 350.1.13.10 ity of [place] 4.2.7.2.686 [place] [facility] [id number] [place] 065354 [place] 2021-09-07 2021-09-07 Outpatient R SELF, [facility] [id number] Univers 08:00:00 08:00:00 GADIEL ity o f [facility] 2021-09-07 2021-09-07 Outpatient R SELF, [facility] [id number] Univers 08:00:00 08:00:00 GADIEL ity o [facility] 2021-08-21 2021-08-21 Outpatient [facility] [id number] Univers 10:45:00 10:45:00 SANTIAGO barbosa [facility] 2021-08-21 2021-08-21 Leather Grainer [place] Cardenas 1.2.840.1 [id number] Univers 10:45:00 10:45:00 Visit [facility] 52141.1.1 ity of 3.104.2.7 [place] .3.601504 Medica l .8 [place] 2021-08-21 2021-08-21 Office Ronald, 1.2.840.6 [id number] Univers 08:30:00 09:00:00 Visit Santiago 82790.1.1 ity of 3.104.2.7 [place] .3.990568 Medica l .8 [place] 2021-08-21 2021-08-21 Office [facility] 1.2.442.708 [id number] Univers 08:30:00 09:00:00 Visit Santiago [facility] 350.1.13.10 i ty of [facility] 4.2.7.2.686 [facility] [id number] [place] 065359 [place] 2021-08-21 2021-08-21 Outpatient [facility] [id number] Univers 08:30:00 08:30:00 SANTIAGO barbosa [facility] 2021-08-21 2021-08-21 Travel 1.2.840.1 1.2.922.819 [id number] Univers 00:00:00 00:00:00 36146.1.1 350.1.13.10 ity of 3.104.2.7 4.2.7.3.698 [place] .3.324946 084.8 Medica l .8 [place] 2021-08-14 2021-08-14 Telephone [place], 1.2.840.6 [id number] Univers 00:00:00 00:00:00 Santiago 37497.1.1 ity of 3.104.2.7 [place] .3.782841 Medica l .8 [place] 2021-08-13 2021-08-13 Telephone [place], 1.2.840.6 [id number] Univers 00:00:00 00:00:00 Santiago 42950.1.1 ity of 3.104.2.7 [place] .3.142823 Medica l .8 [place] 2021-08-11 2021-08-11 Outpatient [facility] [id number] Univers 08:00:00 08:00:00 [facility] 2021-08-05 2021-08-05 [facility] [id number] [facility] 05:24:00 05:24:[address] [place] [address] 2021-07-20 2021-07-20 Outpatient [facility] [id number] Univers 10:00:00 10:00:00 [facility] 2021-07-14 2021-07-14 Office Pankaj, KIMBERLEY 6400 1.2.840.114 [id number] [place] 08:45:00 09:34:[address] 350.1.13.58 Health 9.2.7.2.686 [id number] 1 2021-07-09 2021-07-09 Telephone Kinjal, UTP 6400 1.2.840.114 [id number] [place] 00:00:00 00:00:[address] 350.1.13.58 Health 9.2.7.2.686 [id number] 1 2021-07-09 2021-07-09 Telephone Hematpour, UTP 6400 1.2.840.114 [id number] [place] 00:00:00 00:00:[address] 350.1.13.58 Health 9.2.7.2.686 [id number] 1 2021-07-03 2021-07-03 Outpatient R EAST, [facility] [id number] Univers 08:00:00 08:00:00 SANTIAGO barbosa [facility] 2021-06-17 2021-06-17 Inpatient RAUL Lund, [facility] INTE.02 [id number] [facility] 10:56:00 14:36:[address] [place] [address] 2021-06-15 2021-06-15 Outpatient R SELF, [facility] [id number] Univers 10:15:00 11:07:21 GADIEL ity [facility] 2021-06-15 2021-06-15 Outpatient R SELF, [facility] [id number] Univers 10:15:00 10:15:00 GADIEL familia [facility] 2021-06-15 2021-06-15 Outpatient R SELF, [facility] [id number] Univers 10:15:00 10:15:00 [facility] 2021-06-15 2021-06-15 Orders Doctor 1.2.840.6 [id number] Univers 00:00:00 00:00:00 Only Unassigned, 91835.1.1 ity of [place] 3.104.2.7 [place] .3.894335 Medica l .8 [place] 2021-06-15 2021-06-15 Travel 1.2.840.1 1.2.997.211 [id number] Univers 00:00:00 00:00:00 26409.1.1 350.1.13.10 ity of 3.104.2.7 4.2.7.3.698 [place] .3.949155 084.8 Medica l .8 [place] 2021-06-11 2021-06-11 Reflamonte Cardenas, UNIVERSIT 1.2.464.763 [id number] Univers 00:00:00 00:00:00 [facility] 350.1.13.10 i ty of CLINICS [place] [id number] [address] 2021-06-11 2021-06-11 Refill [place], 1.2.840.7 [id number] Univers 00:00:00 00:00:00 Santiago 33830.1.1 ity of 3.104.2.7 [place] .3.641122 Medica l .8 [place] 2021-06-05 2021-06-05 Outpatient [facility] [id number] Univers 09:00:00 09:00:00 SANTIAGO ity of [facility] 2021-06-02 2021-06-02 Telephone [facility], [facility] 1.2.840.114 [id number] Univers 00:00:00 00:00:00 [facility] 350.1.13.10 i ty of CL[place] [id number] [address] 2021-06-02 2021-06-02 Telephone [place], 1.2.840.9 [id number] [id number] Univers 00:00:00 00:00:00 Santiago 17003.1.1 ity of 3.104.2.7 [place] .3.144656 Medica l .8 [place] 2021-05-29 2021-05-29 Telephone [place], 1.2.840.0 [id number] [id number] Univers 00:00:00 00:00:00 Santiago 08698.1.1 ity of 3.104.2.7 [place] .3.446287 Medica l .8 [place] 2021-05-29 2021-05-29 Telephone [place], 1.2.840.4 [id number] [id number] Univers 00:00:00 00:00:00 Santiago 97005.1.1 ity of 3.104.2.7 [place] .3.296538 Medica l .8 [place] 2021-05-25 2021-05-25 Outpatient [facility] [id number] Univers 08:00:00 08:00:00 GADIEL vogel [facility] 2021-04-29 2021-04-29 Outpatient Marika REEVES, [facility] [id number] Univers 08:00:00 08:00:00 NIKOLAI raheemcharlie [facility] 2021-04-28 2021-04-28 Telephone KIMBERLEY De Souza 6400 1.2.840.114 [id number] [place] 00:00:00 00:00:[address] 350.1.13.58 Health 9.2.7.2.686 [id number] 1 2021-04-28 2021-04-28 Telephone Jailyn, 1.2.840.3 [id number] Methodi 00:00:00 00:00:[address] 3.430.2.7 Hospit a .3.544102 l .8 2021-03-31 2021-03-31 Orders Carol Ann 1.2.840.1 [id number] Methodi 00:00:00 00:00:00 Only Sarai Lieberman 53675.1.1 979 s t 3.430.2.7 Hospit a .3.972160 l .8 2021-03-30 2021-03-30 Outpatient Marika KOEHLER, [facility] [id number] Univers 08:45:00 08:45:00 GADIEL rodas [facility] 2021-03-24 2021-03-24 Telephone Jailyn 1.2.840.4 [id number] Methodi 00:00:00 00:00:[address] 3.430.2.7 Hospit a .3.350007 l .8 2021-02-13 2021-02-13 Telephone Rnoald 1.2.840.9 [id number] 26168 [facility] 00:00:00 00:00:00 Santiago 87460.1.1 ity of 3.104.2.7 [place] .3.391785 Medica l .8 [place] 2021-01-28 2021-01-28 Outpatient R LALA, [facility] [id number] Univers 08:45:00 09:37:00 NIKOLAI ity of [facility] 2021-01-28 2021-01-28 Travel 1.2.840.1 1.2.863.647 0007 [id number] Univers 00:00:00 00:00:00 53729.1.1 350.1.13.10 ity of 3.104.2.7 4.2.7.3.698 [place] .3.878480 084.8 Medica l .8 Branch 2021-01-19 2021-01-19 Telephone Pelletier, 1.2.840.1 [id number] [id number] Method 00:00:00 00:00:[address] 3.430.2.7 Hospit a .3.399120 l .8 2021-01-04 2021-01-04 Dmitry Bass, 1.2.840.7 [id number] 696 Univers 00:00:00 00:00:00 (Out) Dagoberto H 15365.1.1 ity of 3.104.2.7 [place] .3.177742 Medica l .8 [place] 2021-01-04 2021-01-04 Dmitry Bass, 1.2.840.1 [id number] 696 Univers 00:00:00 00:00:00 (Out) Dagoberto H 51394.1.1 ity of 3.104.2.7 [place] .3.061316 Medica l .8 [place] 2021-01-03 2021-01-03 Dmitry Bass, 1.2.840.9 [id number] 790 Univers 00:00:00 00:00:00 (Out) Dagoberto H 18420.1.1 ity of 3.104.2.7 [place] .3.173109 Medica l .8 [place] 2021-01-03 2021-01-03 Dmitry Bass, 1.2.840.1 [id number] 790 Univers 00:00:00 00:00:00 (Out) Dagoberto H 21941.1.1 ity of 3.104.2.7 [place] .3.222775 Medica l .8 [place] 2021-01-02 2021-01-02 Outpatient R [facility] [id number] Univers 13:40:00 13:40:00 ity of [facility] 2021-01-02 2021-01-02 Laboratory [place] Franks 1.2.840.6 [id number] Univers 12:14:13 12:57:34 Only Lab, [place] 65609.1.1 ity of 3.104.2.7 [place] .3.519395 Medica l .8 Branch 2021-01-02 2021-01-02 Laboratory [place] Franks 1.2.840.0 [id number] Univers 12:14:13 12:57:34 Only Lab, Adc Fam Pob I 01722.1.1 ity of 3.104.2.7 [place] .3.826271 Medica l .8 Branch 2021-01-02 2021-01-02 Travel 1.2.840.1 1.2.708.068 7797 2306 Univers 00:00:00 00:00:00 60697.1.1 350.1.13.10 ity of 3.104.2.7 4.2.7.3.698 [place] .3.920961 084.8 Medica l .8 [place] 2021-01-02 2021-01-02 Letter Doctor 1.2.840.9 [id number] 948 Univers 00:00:00 00:00:00 (Out) Unassigned, 63102.1.1 ity of [place] 3.104.2.7 [place] .3.050730 Medica l .8 Branch 2021-01-02 2021-01-02 Letter Doctor 1.2.840.8 [id number] 946 Univers 00:00:00 00:00:00 (Out) Unassigned, 06620.1.1 ity of [place] 3.104.2.7 [place] .3.626757 Medica l .8 [place] 2021-01-02 2021-01-02 Travel 1.2.840.1 1.2.813.962 6479 2306 Univers 00:00:00 00:00:00 97092.1.1 350.1.13.10 ity of 3.104.2.7 4.2.7.3.698 [place] .3.236083 084.8 Medica l .8 [place] 2021-01-02 2021-01-02 Letter Doctor 1.2.840.7 [id number] 948 Univers 00:00:00 00:00:00 (Out) Unassigned, 53400.1.1 ity of [place] 3.104.2.7 [place] .3.265100 Medica l .8 [place] 2021-01-02 2021-01-02 Letter Doctor 1.2.840.5 [id number] [id number] 946 Univers 00:00:00 00:00:00 (Out) Unassigned, 41568.1.1 ity of [place] 3.104.2.7 [place] .3.581407 Medica l .8 [place] 2020-12-22 2020-12-22 Telephone Beltran, 1.2.840.4 [id number] [id number] Univers 00:00:00 00:00:00 Eligionda R 63843.1.1 i ty of 3.104.2.7 [place] .3.395548 Medica l .8 [place] 2020-12-22 2020-12-22 Telephone Beltran, 1.2.840.0 [id number] 862 [id number] Univers 00:00:00 00:00:00 Rossandynda R 16840.1.1 i ty of 3.104.2.7 [place] .3.997177 Medica l .8 [place] 2020-12-12 2020-12-12 Office [facility], UTP 6400 1.2.840.114 12 [id number] [place] 07:42:02 08:18:50 Visit Maraíbrigidamarika PAKN 350.1.13.58 Health 9.2.7.2.686 [id number] 1 2020-12-12 2020-12-12 Office Hematp[place], UTP 6400 1.2.840.114 12 [id number] 07:42:02 08:18:[address] 350.1.13.58 9.2.7.2.686 [id number] 1 2020-12-09 2020-12-09 Telephone Carol Ann, 1.2.840.1 [id number] Methodi 00:00:00 00:00:00 Sarai Lieberman 11909.1.1 316 s t 3.430.2.7 Hospit a .3.296290 l .8 2020-12-08 2020-12-08 [facility], 1.2.840.1 [id number] 2100 [id number] Methodi 12:35:54 23:59:00 Encounter Ray [address]14.1.[address] 3.430.2.7 Hospit a .3.563863 l .8 2020-12-08 2020-12-08 Lab [facility], 1.2.840.1 [id number] Methodi 17:25:00 17:30:[address] 3.430.2.7 Hospit a .3.494513 l .8 2020-12-08 2020-12-08 [facility], 1.2.840.1 [id number] 83546 39347 Methodi 10:30:00 11:39:56 Visit Ray [address]9992.1.[address] 3.430.2.7 Hospit a .3.041995 l .8 2020-12-08 2020-12-08 Travel 1.2.840.1 1.2.224.058 2823 [id number] Methodi 00:00:00 00:00:[address] 3.430.2.7 0.2.7.3.698 Ho spita .3.302015 084.8 l .8 2020-12-02 2020-12-02 Leather Grainer Santiago Cardenas 1.2.840.1 [id number] [facility] 10:20:06 10:36:19 Visit [facility] 92336.1.1 ity of 3.104.2.7 [place] .3.739112 Medica l .8 [place] 2020-12-02 2020-12-02 Leather Grainer Santiago Cardenas 1.2.840.1 [id number] [facility] 10:20:06 10:36:19 Visit [facility] 83588.1.1 ity of 3.104.2.7 [place] .3.528955 Medica l .8 [place] 2020-12-02 2020-12-02 Leather Grainer [facility] 1.2.840.114 8 [id number] 10:20:06 10:36:19 Visit [facility] 350.1.13.10 CLINICS 4.2.7.2.686 [id number] [facility] 2020-12-02 2020-12-02 Office Ronald, 1.2.840.4 [id number] 528 [facility] 08:31:37 09:01:37 Visit Santiago 81679.1.1 ity of 3.104.2.7 [place] .3.455634 Medica l .8 [place] 2020-12-02 2020-12-02 Outpatient [facility] [id number] Univers 09:00:00 09:00:00 [place] ity of [facility] 2020-11-25 2020-11-25 Office Devin, 1.2.840.3 [id number] [facility] 11:06:30 11:58:14 Visit Robbi Hairston 92375.1.1 i ty of 3.104.2.7 [place] .3.132239 Medica l .8 [place] 2020-11-25 2020-11-25 Office Beltran, 1.2.840.3 [id number] [id number] Univers 11:06:30 11:58:14 Visit Robbi Hairston 50619.1.1 i ty of 3.104.2.7 [place] .3.490475 Medica l .8 [place] 2020-11-25 2020-11-25 [facility] 1.2.840.114 [id number] 11:06:30 11:58:14 Visit Robbi Hairston [employer] 350.1.13.10 REGIONAL 4.2.7.2.686 MATERNAL [id number] & CHILD [address] [place] [address] 2020-11-25 2020-11-25 Outpatient R [facility] [id number] Univers 11:00:00 11:00:00 ity of [facility] 2020-11-25 2020-11-25 Telephone Devin, 1.2.840.9 [id number] 855 [id number] Univers 00:00:00 00:00:00 Robbi Hairston 66720.1.1 i ty of 3.104.2.7 [place] .3.439134 Medica l .8 [place] 2020-11-25 2020-11-25 Refill East, 1.2.840.6 [id number] 89917 592 Univers 00:00:00 00:00:00 [place] 09069.1.1 ity of 3.104.2.7 [place] .3.962287 Medica l .8 [place] 2020-11-25 2020-11-25 Travel 1.2.840.1 1.2.075.418 4861 0247 Univers 00:00:00 00:00:00 04705.1.1 350.1.13.10 ity of 3.104.2.7 4[place]7.3.698 [place] .3.3970[place] 084.8 Medica l .8 [place] 2020-11-25 2020-11-25 Orders Doctor 1.2.840.9 [id number] 064 Univers 00:00:00 00:00:00 Only Unassigned, 58070.1.1 ity of [place] 3.104.2.7 [place] .3.685800 Medica l .8 [place] 2020-11-25 2020-11-25 Telephone Devin, 1.2.840.5 [id number] 855 [id number] Univers 00:00:00 00:00:00 Robbi Hairston 19050.1.1 i ty of 3.104.2.7 [place] .3.238067 Medica l .8 [place] 2020-11-25 2020-11-25 Refill [place], 1.2.840.5 [id number] 51268 592 Univers 00:00:00 00:00:00 Santiago 22307.1.1 ity of 3.104.2.7 [place] .3.206555 Medica l .8 [place] 2020-11-25 2020-11-25 Travel 1.2.840.1 1.2.377.654 2521 0247 Univers 00:00:00 00:00:00 92054.1.1 350.1.13.10 ity of 3.104.2.7 4.2.7.3.698 [place] .3.863293 084.8 Medica l .8 [place] 2020-11-25 2020-11-25 Orders Doctor 1.2.840.4 [id number] 064 Univers 00:00:00 00:00:00 Only Unassigned, 94887.1.1 ity of [place] 3.104.2.7 [place] .3.816672 Medica l .8 [place] 2020-11-25 2020-11-25 [facility] 1.2.521.343 9645 4592 00:00:00 00:00:00 [facility] 350.1.13.10 [facility] 4.2.7.2.686 [id number] 089 2020-11-25 2020-11-25 [facility] 1.2.102.283 7198 0821 00:00:00 00:00:00 Robbi Hairston [employer] 350.1.13.10 [facility] 4.2.7.2.686 MATERNAL [id number] & CHILD [address] [place] [address] 2020-11-14 2020-11-14 Abstract Clark 1.2.840.1 [id number] 97786 63521 Methodi 00:00:00 00:00:[address] 3.430.2.7 Hospit a .3.528965 l .8 2020-11-14 2020-11-14 Telephone Clark 1.2.840.1 [id number] 2100 820456 Methodi 00:00:00 00:00:[address] 3.430.2.7 Hospit a .3.651415 l .8 2020-11-12 2020-11-12 Outpatient R RONALD [facility] [id number] Univers 08:30:00 08:30:00 SANTIAGO ity of [facility] 2020-11-07 2020-11-07 Telephone Agustina Ortiz UTP 6400 1.2.840.11 4 [id number] [place] 00:00:00 00:00:[address] 350.1.13.58 Health 9.2.7.2.686 [id number] 1 2020-11-07 2020-11-07 Telephone KIMBERLEY Ortiz 6400 1.2.840.114 124 [id number] 00:00:00 00:00:[address] 350.1.13.58 9.2.7.2.686 [id number] 1 2020-10-31 2020-10-31 Office Hematpour, KIMBERLEY 6400 1.2.840.114 12 [id number] [place] 07:54:00 09:45:[address] 350.1.13.58 Health 9.2.7.2.686 [id number] 1 2020-10-30 2020-10-30 Abstract Rody Maguire UTP 6400 1.2.840.1 14 [id number] [place] 00:00:00 00:00:[address] 350.1.13.58 Health 9.2.7.2.686 [id number] 1 2020-10-29 2020-10-29 Refill Ronald, 1.2.840.2 [id number] 400 Univers 00:00:00 00:00:00 [place] 28775.1.1 ity of 3.104.2.7 [place] .3.117738 Medica l .8 [place] 2020-10-29 2020-10-29 Refill [place], 1.2.840.8 [id number] 400 Univers 00:00:00 00:00:00 [place] 80805.1.1 ity of 3.104.2.7 [place] .3.439445 Medica l .8 [place] 2020-10-27 2020-10-27 Telephone Jailyn, 1.2.840.5 [id number] Methodi 00:00:00 00:00:[address] 3.430.2.7 Hospit a .3.664931 l .8 2020-10-24 2020-10-24 Telephone Clark, 1.2.840.1 [id number] 2100 470870 Methodi 00:00:00 00:00:[address] 3.430.2.7 Hospit a .3.712055 l .8 2020-10-22 2020-10-22 Outpatient R SELF, [facility] [id number] Univers 13:00:00 13:00:00 GADIEL ity [facility] 2020-10-22 2020-10-22 Travel 1.2.840.1 1.2.053.084 7567 3839 Univers 00:00:00 00:00:00 48181.1.1 350.1.13.10 ity of 3.104.2.7 4.[place].7.3.698 [place] .3.049571 084.8 Medica l .8 [place] 2020-10-22 2020-10-22 Travel 1.2.840.1 1.2.216.020 4815 3839 Univers 00:00:00 00:00:00 13287.1.1 350.1.13.10 ity of 3.104.2.7 4.2.7.3.698 [place] .3.286117 084.8 Medica l .8 [place] 2020-10-13 2020-10-13 Outpatient R SELF, [facility] [id number] Univers 08:45:00 08:45:00 GADIEL macielcharlie vogel [facility] 2020-10-06 2020-10-12 Telemedici Jailyn, 1.2.840.1 [id number] 21 [id number] Methodi 15:30:00 00:08:46 ne Ray 47657.1.[address] 3.430.2.7 Hospit a .3.148028 l .8 2020-09-30 2020-09-30 [facility], 1.2.840.0 [id number] 21 [id number] Methodi 00:00:00 00:00:[address] 3.430.2.7 Hospit a .3.824585 l .8 2020-09-21 2020-09-[address] [facility] 1.2.840.1 1.2.448.144 1851 [id number] Methodi 00:00:00 00:00:[address] 3.430.2.7 0.2.7.3.698 Ho spita .3.748069 084.8 l .8 2020-09-06 2020-09-06 [facility] 1.2.840.1 [id number] 14743 Methodi 17:42:30 23:59:[address] 3.430.2.7 Hospit a .3.395916 l .8 2020-09-06 2020-09-06 [facility], 1.2.840.1 [id number] 2099 [id number] Methodi 16:50:00 17:41:00 Encounter Ray 31532.1.[address] 3.430.2.7 Hospit a .3.572122 l .8 2020-09-05 2020-09-05 [facility], 1.2.840.1 [id number] 2100 679160 Methodi 09:17:00 19:45:00 Encounter Ray [address]994.1.[address] 3.430.2.7 Hospit a .3.793172 l .8 2020-09-05 2020-09-05 Surgery [facility], 1.2.840.1 [id number] 64417 Methodi 11:30:00 13:15:[address] 3.430.2.7 Hospit a .3.824589 l .8 2020-09-05 2020-09-05 Anesthesia [facility], 1.2.840.1 [id number] 763 [id number] Methodi 11:27:00 12:20:00 Event Kirit 66649.1.1 243 s t V. 3.430.2.7 Hospit a .3.612386 l .8 2020-09-05 2020-09-05 Travel 1.2.840.1 1.2.179.067 8404 [id number] Methodi 00:00:00 00:00:[address] 3.430.2.7 0.2.7.3.698 Ho spita .3.364782 084.8 l .8 2020-09-04 2020-09-04 Telephone Meisenbach, 1.2.840.1 [id number] Methodi 00:00:00 00:00:00 Sarai Lieberman 32424.1.1 762 s t 3.430.2.7 Hospit a .3.518036 l .8 2020-09-02 2020-09-02 Telephone Meisenbach, 1.2.840.8 [id number] Methodi 00:00:00 00:00:00 Sarai Lieberman 92137.1.1 344 s t 3.430.2.7 Hospit a .3.302924 l .8 2020-08-29 2020-08-30 [facility] [id number] [facility] 10:20:00 14:10:00 Outpatient r [place] 00 l [facility] 2020-08-29 2020-08-30 Outpatient HEMATPOUR, [facility] CAR 7500 [facility] 05:20:00 09:10:00 BEVERLY 2020-08-06 2020-08-06 Office East, 1.2.840.3 [id number] 416 [facility] 08:03:23 09:17:49 Visit Santiago 35810.1.1 familia 3.104.2.7 [place] .3.777398 Medica l .8 [place] 2020-08-06 2020-08-06 [facility] [id number] Univers 08:30:00 08:30:00 SANTIAGO barbosa of [facility] 2020-07-14 2020-07-14 Outpatient R SELF, [facility] [id number] Univers 09:30:00 09:30:00 GADIEL rodas [facility] 2020-07-14 2020-07-14 Travel 1.2.840.1 1.2.353.555 2549 2575 Univers 00:00:00 00:00:00 92667.1.1 350.1.13.10 ity of 3.104.2.7 4[place].7.3.698 [place] .3.985128 084.8 Medica l .8 [place] 2020-07-14 2020-07-14 Orders Doctor 1.2.840.1 [id number] Univers 00:00:00 00:00:00 Only Unassigned, 12881.1.1 ity of [place] 3.104.2.7 [place] .3.692175 Medica l .8 [place] 2020-06-16 2020-06-16 [facility] [id number] Univers 08:00:00 08:00:00 GADIEL rodas [facility] 2020-06-06 2020-06-06 Telephone East, 1.2.840.5 [id number] [id number] Univers 00:00:00 00:00:00 [place] 31022.1.1 ity of 3.104.2.7 [place] .3.009398 Medica l .8 [place] 2020-06-04 2020-06-04 Leather Grainer [place] Cardenas 1.2.840.1 [id number] Univers 09:31:58 09:40:12 Visit [facility] 16116.1.1 ity of 3.104.2.7 [place] .3.537348 Medica l .8 [place] 2020-06-04 2020-06-04 Office JOSÉ ANTONIO Cardenas 1.2.959.279 3630 9729 Univers 08:13:41 09:28:25 Visit Santiago [facility] 350.1.13.10 i ty of CLINICS 4.2.7.2.[place] 058.5862487 Medi porfirio 089 [place] 2020-06-04 2020-06-04 Outpatient R [facility] [id number] Univers 08:30:00 08:30:00 SANTIAGO ity of [facility] 2020-06-04 2020-06-04 Orders Doctor 1.2.840.0 [id number] [id number] Univers 00:00:00 00:00:00 Only Unassigned, 69337.1.1 ity of [place] 3.104.2.7 [place] .3.634403 Medica l .8 [place] 2020-05-19 2020-05-19 Telephone [place], 1.2.840.7 [id number] 804 [id number] Univers 00:00:00 00:00:00 [place] 31489.1.1 ity of 3.104.2.7 [place] .3.351406 Medica l .8 [place] 2020-04-24 2020-04-24 Telephone [place], 1.2.840.5 [id number] 799 [id number] Univers 00:00:00 00:00:00 Santiago 36355.1.1 ity of 3.104.2.7 [place] .3.594127 Medica l .8 [place] 2020-04-14 2020-04-14 Outpatient R EAST, [facility] [id number] Univers 09:00:00 09:00:00 SANTIAGO ity [facility] 2020-04-14 2020-04-14 Telephone [place], 1.2.840.9 [id number] 797 [id number] Univers 00:00:00 00:00:00 [place] 43429.1.1 ity of 3.104.2.7 [place] .3.635999 Medica l .8 [place] 2020-03-31 2020-03-31 Outpatient R EAST, [facility] [id number] Univers 08:30:00 08:30:00 SANTIAGO ity [facility] 2020-03-03 2020-03-03 Outpatient R SELF, [facility] [id number] Univers 08:00:00 08:00:00 GADIEL rodas [facility] 2020-03-03 2020-03-03 Outpatient R SELF, [facility] [id number] Univers 08:00:00 08:00:00 GADIEL rodas [facility] 2020-03-03 2020-03-03 Travel 1.2.840.1 1.2.213.919 6419 5480 Univers 00:00:00 00:00:00 34649.1.1 350.1.13.10 ity of 3.104.2.7 4.[place].7.3.698 [place] .3.507408 084.8 Medica l .8 [place] 2020-02-06 2020-02-06 Telephone East, 1.2.840.1 [id number] 781 [id number] Univers 00:00:00 00:00:00 [place] 01395.1.1 ity of 3.104.2.7 [place] .3.917417 Medica l .8 [place] 2020-01-26 2020-01-26 Emergency Caridad, 1.2.840.8 [id number] 779 04971 Univers 10:03:00 13:05:00 Cynise 90488.1.1 ity of 3.104.2.7 [place] .3.699703 Medica l .8 [place] 2020-01-26 2020-01-26 Travel 1.2.840.1 1.2.970.133 3712 0120 Univers 00:00:00 00:00:00 22097.1.1 350.1.13.10 ity of 3.104.2.7 4.[place].7.3.698 [place] .3.705464 084.8 Medica l .8 [place] 2020-01-25 2020-01-25 Outpatient R [facility] [id number] Univers 08:30:00 08:30:00 SANTIAGO ity of [facility] 2020-01-25 2020-01-25 Telemedici [place], 1.2.840.2 [id number] Univers 07:36:49 08:06:49 ne Visit Santiago 22591.1.1 ity of 3.104.2.7 [place] .3.862660 Medica l .8 [place] 2020-01-16 2020-01-16 Outpatient R [facility] [id number] Univers 08:00:00 08:00:00 SANTIAGO ity of [facility] 2020-01-16 2020-01-16 Telephone East, 1.2.840.5 [id number] Univers 00:00:00 00:00:00 [place] 08893.1.1 ity of 3.104.2.7 [place] .3.075509 Medica l .8 [place] 2020-01-14 2020-01-14 Outpatient R SELF, [facility] [id number] Univers 08:00:00 08:00:00 GADIEL rodas [facility] 2019-12-31 2019-12-31 Outpatient R SELF, [facility] [id number] Univers 08:45:00 08:45:00 GADIEL barbosa o clark [facility] 2019-10-17 2019-10-17 Outpatient R EAST, [facility] [id number] Univers 08:30:00 08:30:00 SANTIAGO ity [facility] 2019-10-12 2019-10-12 Outpatient R EAST, [facility] [id number] Univers 13:00:00 [facility] 2019-10-12 2019-10-12 Telemedici [place], 1.2.840.0 [id number] Univers 07:38:30 08:08:30 ne Visit Santiago 94860.1.1 ity of 3.104.2.7 [place] .3.153090 Medica l .8 [place] 2019-10-08 2019-10-08 Outpatient R SELF, [facility] [id number] Univers 10:15:00 10:15:00 AGDIEL rodas [facility] 2019-10-03 2019-10-03 Case Assman, 1.2.840.9 [id number] Univers 00:00:00 00:00:00 Management Michael Corbin 59912.1.1 i ty of 3.104.2.7 [place] .3.471285 Medica l .8 [place] 2019-09-27 2019-09-27 Telephone East, 1.2.840.0 [id number] [id number] Univers 00:00:00 00:00:00 [place] 86488.1.1 ity of 3.104.2.7 [place] .3.629337 Medica l .8 [place] 2019-09-04 2019-09-04 Refill [place], 1.2.840.0 [id number] Univers 00:00:00 00:00:00 [place] 64575.1.1 ity of 3.104.2.7 [place] .3.777587 Medica l .8 [place] 2019-07-24 2019-07-24 Outpatient R EAST, [facility] [id number] Univers 08:30:00 08:30:00 SANTIAGO ity [facility] 2019-07-17 2019-07-17 [facility] [id number] Univers 10:00:00 10:00:00 SANTIAGO ity [facility] 2019-06-15 2019-06-15 Telephone East, 1.2.840.2 [id number] [id number] Univers 00:00:00 00:00:00 [place] 96001.1.1 ity of 3.104.2.7 [place] .3.095793 Medica l .8 [place] 2019-06-13 2019-06-13 Telephone Team, [facility] 1.2.840.3 [id number] Univers 00:00:00 00:00:00 Health 19339.1.1 ity of [place].2.7 [place] .3.501148 Medica l .8 [place] 2019-05-10 2019-05-10 Refill Ronald, 1.2.840.3 [id number] Univers 00:00:00 00:00:00 [place] 07002.1.1 ity of 3.104.2.7 [place] .3.638670 Medica l .8 [place] 2019-05-09 2019-05-09 Refill Ronald, 1.2.840.0 [id number] [id number] Univers 00:00:00 00:00:00 [place] 34247.1.1 ity of 3.104.2.7 [place] .3.959248 Medica l .8 [place] 2019-04-30 2019-04-30 Outpatient R SELF, [facility] [id number] Univers 10:15:00 10:33:05 GADIEL barbosa o f [facility] 2019-04-18 2019-04-18 Leather Grainer RonaldSantiago 1.2.840.1 [id number] Univers 10:00:39 10:44:31 Visit [facility] 91199.1.1 ity of 3.104.2.7 [place] .3.537214 Medica l .8 [place] 2019-04-18 2019-04-18 Outpatient R RONALD, [facility] [id number] Univers 10:00:00 10:44:31 SANTIAGO ity of [facility] 2019-04-18 2019-04-18 Office East, 1.2.840.3 [id number] 005 Univers 08:27:44 09:53:27 Visit [place] 56164.1.1 ity of 3.104.2.7 [place] .3.156421 Medica l .8 [place] 2019-04-18 2019-04-18 Orders Doctor 1.2.840.2 [id number] Univers 00:00:00 00:00:00 Only Unassigned, 52535.1.1 ity of [place] 3.104.2.7 [place] .3.767625 Medica l .8 [place] 2019-04-11 2019-04-11 Refill [facility], 1.2.840.8 [id number] 033 Univers 00:00:00 00:00:00 [place] 17279.1.1 ity of 3.104.2.7 [place] .3.311186 Medica l .8 [place] 2019-04-09 2019-04-09 Refill [facility], 1.2.840.3 [id number] Univers 00:00:00 00:00:00 [place] 84546.1.1 ity of 3.104.2.7 [place] .3.874669 Medica l .8 [place] 2019-04-03 2019-04-03 Telephone Team, [facility] 1.2.840.2 [id number] Univers 00:00:00 00:00:00 Health 93125.1.1 ity of [place].104.2.7 [place] .3.195914 Medica l .8 [place] 2019-03-27 2019-03-27 Telephone Self, 1.2.840.4 [id number] 723 [id number] Univers 00:00:00 00:00:00 Gadiel 86979.1.1 ity of 3.104.2.7 [place] .3.739275 Medica l .8 [place] 2019-01-17 2019-01-17 Office Ronald, 1.2.840.2 [id number] Univers 07:37:21 10:32:51 Visit [place] 67336.1.1 ity of 3.104.2.7 [place] .3.026853 Medica l .8 [place] 2019-01-04 2019-01-12 Office Eveline Hansen 1.2.840.0 [id number] Univers 11:19:32 11:08:05 Visit Mariela 06930.1.1 ity of 3.104.2.7 [place] .3.582599 Medica l .8 [place] 2019-01-10 2019-01-10 Telephone Ephraimcharlie, 1.2.840.7 [id number] 709 [id number] Univers 00:00:00 00:00:00 Eladio Storm 77268.1.1 ity of 3.104.2.7 [place] .3.841753 Medica l .8 [place] 2018-12-18 2018-12-18 Office Alexisryan, 1.2.840.1 [id number] Univers 08:48:45 09:13:43 Visit Leyda 18120.1.1 it y of 3.104.2.7 [place] .3.227313 Medica l .8 [place] 2018-10-30 2018-10-30 Telephone Ronald, 1.2.840.1 [id number] [id number] Univers 00:00:00 00:00:00 Santiago 62282.1.1 ity of 3.104.2.7 [place] .3.195831 Medica l .8 Branch 2018-10-23 2018-10-23 Orders Doctor 1.2.840.1 [id number] Univers 00:00:00 00:00:00 Only Unassigned, 48571.1.1 ity of [place] 3.104.2.7 [place] .3.671602 Medica l .8 Branch 2018-10-23 2018-10-23 Nurse Selvin, 1.2.840.3 [id number] Univers 00:00:00 00:00:00 Triage Stefanie 35806.1.1 ity of 3.104.2.7 [place] .3.697310 Medica l .8 Branch 2018-10-23 2018-10-23 Telephone Self, 1.2.840.9 [id number] [id number] Univers 00:00:00 00:00:00 Gadiel 91212.1.1 ity of 3.104.2.7 [place] .3.074893 Medica l .8 Branch 2018-10-20 2018-10-20 Telephone Self, 1.2.840.8 [id number] [id number] Univers 00:00:00 00:00:00 Gadiel 98059.1.1 ity of 3.104.2.7 [place] .3.574552 Medica l .8 [place] Results Test Description Test Time Test Comments Results Result Comments Source COMP. METABOLIC PANEL (90013) 2022-05-06 22:42:55 Test Item Value Reference Range Interpretation Comme nts NA (test code = 5753369012) 137 mmol/L 135-145 K (test code = 2532797481) 3.2 mmol/L 3.5-5.0 L CL (test code = 6019771928) 100 mmol/L 98-108 CO2 TOTAL (test code = 9262683412) 23 mmol/L 23-31 AGAP (test code = 1276741119) 2-16 BUN (test code = 2432928328) 41 mg/dL 7-23 H GLUCOSE (test code = 7715434175) 98 mg/dL 70-110 CREATININE (test code = 1.55 mg/dL 0.50-1.04 H 5021151912) TOTAL BILI (test code = 0.8 mg/dL 0.1-1.9 2360350196) CALCIUM (test code = 1931195961) 8.3 mg/dL 8.6-10.6 L T PROTEIN (test code = 5278666090) 6.9 g/dL 6.3-8.2 ALBUMIN (test code = 3500208663) 3.9 g/dL 3.5-5.0 ALK PHOS (test code = 5596090936) 89 U/L 34-122 ALTv (test code = 1742-6) 101 U/L 5-35 H AST(SGOT) (test code = 7246862561) 203 U/L 13-40 H eGFR (test code = 3848109402) mL/min/1.73m2 KYLE (test code = KYLE) Association [...] tests). Lab Interpretation (test code = Abnormal 66459-4) [facility] WITH [id number] 22:33:52 Test Item Value Reference Range Interpretation Comments WBC (test code = See_Comment L [Automated 8713-2) message] The sy stem which generated this result transmitted reference range : 4.30 - 11.10 10*3/?L. The reference range was not used to interpret this result as normal/abnormal . RBC (test code = See_Comment [Automated 259-8) message] The sy stem which [...] RDW-SD (test code = 46.3 fL 39.0-49.9 87962-9) RDW-CV (test code = 13.5 % 12.0-15.5 788-0) PLT (test code = See_Comment L [Automated 777-3) message] The sy stem which generated this result transmitted reference range : 166 - 358 10*3/ ?L. The reference r abbey was not used to interpret this result as normal/abnormal . MPV (test code = 9.5 fL 9.5-12.9 25887-1) NRBC/100 WBC (test See_Comment [Automat ed code = 4560677831) message] The system which generated this result transmitted reference range : 0.0 - 10.0 /100 WBCs. The refer ence range was not u sed to interpret th is result as normal/abnormal . NRBC x10^3 (test code See_Comment [Auto mated = 4743904521) message] The s ystem which generated this result transmitted reference range : 10*3/?L. The reference range was not used to interpret this result as normal/abnormal . GRAN MAT (NEUT) % 58.3 % (test code = 770-8) IMM GRAN % (test code 0.80 % = 6481683707) LYMPH % (test code = 28.1 % 736-9) MONO % (test code = 12.0 % 5905-5) EOS % (test code = 0.5 % 713-8) BASO % (test code = 0.3 % 706-2) GRAN MAT x10^3(ANC) 2.29 10*3/uL 1.88-7.09 (test code = 5403041644) IMM GRAN x10^3 (test 0.03 10*3/uL 0.00-0.06 code = 7792127479) LYMPH x10^3 (test code 1.10 10*3/uL 1.32-3.29 L = 731-0) MONO x10^3 (test code 0.47 10*3/uL 0.33-0.92 = 742-7) EOS x10^3 (test code = 0.03-0.39 L 711-2) BASO x10^3 (test code 0.01-0.07 = 704-7) Lab Interpretation Abnormal (test code = 28299-9) [facility] METABOLIC PANEL (NA, K, CL, CO2, GLUCOSE, BUN, CREATININE, CA)2022-04-22 21:43:42 Test Item Value Reference Range Interpretation Comments NA (test code = 142 mmol/L 135-145 7529658014) K (test code = 3.5 mmol/L 3.5-5.0 0623222864) CL (test code = 106 mmol/L 98-108 0343568979) CO2 TOTAL (test code = 26 mmol/L 23-31 9041592729) AGAP (test code = 2-16 5889519474) BUN (test code = 29 mg/dL 7-23 H 3051749997) GLUCOSE (test code = 84 mg/dL 70-110 4497783231) CREATININE (test code = 1.16 mg/dL 0.50-1.04 H 4747232246) CALCIUM (test code = 8.2 mg/dL 8.6-10.6 L 4528807411) eGFR (test code = mL/min/1.73m2 3808588507) KYLE (test code = KYLE) Association of [...] tests). Lab Interpretation Abnormal (test code = 81425-4) [facility] WITH [id number] 21:33:01 Test Item Value Reference Range Interpretation [...] (test code = 50.7 fL 39.0-49.9 H 81237-0) RDW-CV (test code = 14.6 % 12.0-15.5 788-0) PLT (test code = See_Comment L [Automated 777-3) message] The sy stem which generated this result transmitted reference range : 166 - 358 10*3/ ?L. The reference r abbey was not used to interpret this result as normal/abnormal . MPV (test code = 8.8 fL 9.5-12.9 L 04050-7) NRBC/100 WBC (test See_Comment [Automat ed code = 3656764390) message] The system which generated this result transmitted reference range : 0.0 - 10.0 /100 WBCs. The refer ence range was not u sed to interpret th is result as normal/abnormal . NRBC x10^3 (test code See_Comment [Auto mated = 2856135787) message] The s ystem which generated this result transmitted reference range : 10*3/?L. The reference range was not used to interpret this result as normal/abnormal . GRAN MAT (NEUT) % 70.9 % (test code = 770-8) IMM GRAN % (test code 0.50 % = 6358819725) LYMPH % (test code = 17.4 % 736-9) MONO % (test code = 9.0 % 5905-5) EOS % (test code = 1.7 % 713-8) BASO % (test code = 0.5 % 706-2) GRAN MAT x10^3(ANC) 4.60 10*3/uL 1.88-7.09 (test code = 8927483905) IMM GRAN x10^3 (test 0.03 10*3/uL 0.00-0.06 code = 8568752033) LYMPH x10^3 (test code 1.13 10*3/uL 1.32-3.29 L = 731-0) MONO x10^3 (test code 0.58 10*3/uL 0.33-0.92 = 742-7) EOS x10^3 (test code = 0.11 10*3/uL 0.03-0.39 711-2) BASO x10^3 (test code 0.03 10*3/uL 0.01-0.07 = 704-7) Lab Interpretation Abnormal (test code = 83119-2) [id number] Test Item Value Reference Range Interpretation Comments Blood Culture-Aerobic No organisms No growth Previo us (test code = 66338-3) isolated prelim inary verified result was Culture [...] Culture-Anaerobic isolated preliminar y (test code = 38010-4) verifi ed result was Culture In Progress [...] CDT Lab Interpretation Normal (test code = 76494-4) [facility] [id number] 06:01:07 Test Item Value Reference Range Interpretation Comments Blood Culture-Aerobic No organisms No growth Previo us (test code = 39377-6) isolated prelim inary verified result was Culture [...] Culture-Anaerobic isolated preliminar y (test code = 39634-0) verifi ed result was Culture In Progress [...] CDT Lab Interpretation Normal (test code = 54411-6) [facility] [id number] 06:01:07 Test Item Value Reference Range Interpretation Comments Blood Culture-Aerobic No organisms No growth Previo us (test code = 10173-3) isolated prelim inary verified result was Culture [...] Culture-Anaerobic isolated preliminar y (test code = 57741-0) verifi ed result was Culture In Progress [...] CDT Lab Interpretation Normal (test code = 59547-9) [id number]:49:10 Test Item Value Reference Range Interpretation Comments NT-proBNP (test code 2660 pg/mL See_Comment H [Autom ated = 0340457967) message] The system which generated this result transmitted reference range : <=125. The reference range was not used to interpret this result as normal/abnormal . KYLE (test code = KYLE) Biotin has been reported to cause a negative bias, interpret results relative to patient's use of biotin. Lab Interpretation Abnormal (test code = 86811-2) [facility]TERMIN[facility] [id number] 10:49:10 Test Item Value Reference Range Interpretation Comments NT-proBNP (test code 2660 pg/mL See_Comment H [Autom ated = 6333132233) message] The system which generated this result transmitted reference range : <=125. The reference range was not used to interpret this result as normal/abnormal . KYLE (test code = KYLE) Biotin has been reported to cause a negative bias, interpret results relative to patient's use of biotin. Lab Interpretation Abnormal (test code = 23315-8) [facility] METABOLIC PANEL (NA, K, CL, CO2, GLUCOSE, BUN, CREATININE, CA)2022-02-15 10:44:07 Test Item Value Reference Range Interpretation Comments NA (test code = 134 mmol/L 135-145 L 2740728805) K (test code = 3.2 mmol/L 3.5-5 L 7874909031) CL (test code = 98 mmol/L 98-108 2481192118) CO2 TOTAL (test code = 27 mmol/L 23-31 8190455221) AGAP (test code = 2-16 5144248190) BUN (test code = 19 mg/dL 7-23 0431479243) GLUCOSE (test code = 102 mg/dL 70-110 2915543085) CREATININE (test code = 0.95 mg/dL 0.5-1.04 3720809627) CALCIUM (test code = 8.5 mg/dL 8.6-10.6 L 3425450257) eGFR (test code = mL/min/1.73m2 7916208509) KYLE (test code = KYLE) Association of [...] tests). Lab Interpretation Abnormal (test code = 53346-8) [facility] Test Item Value Reference Range Interpretation Comments MAGNESIUM (test code = 8635217998) 1.8 mg/dL 1.7-2.4 Lab Interpretation (test code = Normal 07828-7) [facility]2022-09-26 10:44:07 Test Item Value Reference Range Interpretation Comments MAGNESIUM (test code = 6773599112) 1.8 mg/dL 1.7-2.4 Lab Interpretation (test code = Normal 01167-5) [facility] METABOLIC PANEL (NA, K, CL, CO2, GLUCOSE, BUN, CREATININE, CA)2022-02-15 10:44:07 Test Item Value Reference Range Interpretation Comments NA (test code = 134 mmol/L 135-145 L 7317178632) K (test code = 3.2 mmol/L 3.5-5.0 L 2795382346) CL (test code = 98 mmol/L 98-108 7499411972) CO2 TOTAL (test code = 27 mmol/L 23-31 7095779169) AGAP (test code = 2-16 4392937209) BUN (test code = 19 mg/dL 7-23 6677424375) GLUCOSE (test code = 102 mg/dL 70-110 6063924089) CREATININE (test code = 0.95 mg/dL 0.50-1.04 4428094360) CALCIUM (test code = 8.5 mg/dL 8.6-10.6 L 0957164550) eGFR (test code = mL/min/1.73m2 2716434417) KYLE (test code = KYLE) Association of [...] tests). Lab Interpretation Abnormal (test code = 48475-8) [facility] WITH [id number] 10:12:06 Test Item Value Reference Range Interpretation Comments WBC (test code = See_Comment L [Automated 3790-2) message] The sy stem which generated this [...] RDW-SD (test code = 47.8 fL 39-49.9 12920-8) RDW-CV (test code = 15.2 % 12-15.5 788-0) PLT (test code = See_Comment L [Automated 777-3) message] The sy stem which generated this result transmitted reference range : 166 - 358 10*3/ ?L. The reference r abbey was not used to interpret this result as normal/abnormal . MPV (test code = 8.9 fL 9.5-12.9 L 83258-5) NRBC/100 WBC (test See_Comment [Automat ed code = 2819132423) message] The system which generated this result transmitted reference range : 0.0 - 10.0 /100 WBCs. The refer ence range was not u sed to interpret th is result as normal/abnormal . NRBC x10^3 (test code See_Comment [Auto mated = 0851655200) message] The s ystem which generated this result transmitted reference range : 10*3/?L. The reference range was not used to interpret this result as normal/abnormal . GRAN MAT (NEUT) % 65.9 % (test code = 770-8) IMM GRAN % (test code 0.30 % = 0535538270) LYMPH % (test code = 21.0 % 736-9) MONO % (test code = 10.1 % 5905-5) EOS % (test code = 2.4 % 713-8) BASO % (test code = 0.3 % 706-2) GRAN MAT x10^3(ANC) 2.49 10*3/uL 1.88-7.09 (test code = 2933268451) IMM GRAN x10^3 (test 0-0.06 code = 0835928802) LYMPH x10^3 (test code 0.79 10*3/uL 1.32-3.29 L = 731-0) MONO x10^3 (test code 0.38 10*3/uL 0.33-0.92 = 742-7) EOS x10^3 (test code = 0.09 10*3/uL 0.03-0.39 711-2) BASO x10^3 (test code 0.01-0.07 = 704-7) Lab Interpretation Abnormal (test code = 77960-2) [facility] WITH [id number] 10:12:06 Test Item Value Reference Range Interpretation [...] RDW-SD (test code = 47.8 fL 39.0-49.9 68977-9) RDW-CV (test code = 15.2 % 12.0-15.5 788-0) PLT (test code = See_Comment L [Automated 777-3) message] The sy stem which generated this result transmitted reference range : 166 - 358 10*3/ ?L. The reference r abbey was not used to interpret this result as normal/abnormal . MPV (test code = 8.9 fL 9.5-12.9 L 50295-6) NRBC/100 WBC (test See_Comment [Automat ed code = 3245769766) message] The system which generated this result transmitted reference range : 0.0 - 10.0 /100 WBCs. The refer ence range was not u sed to interpret th is result as normal/abnormal . NRBC x10^3 (test code See_Comment [Auto mated = 7406194178) message] The s ystem which generated this result transmitted reference range : 10*3/?L. The reference range was not used to interpret this result as normal/abnormal . GRAN MAT (NEUT) % 65.9 % (test code = 770-8) IMM GRAN % (test code 0.30 % = 5447875871) LYMPH % (test code = 21.0 % 736-9) MONO % (test code = 10.1 % 5905-5) EOS % (test code = 2.4 % 713-8) BASO % (test code = 0.3 % 706-2) GRAN MAT x10^3(ANC) 2.49 10*3/uL 1.88-7.09 (test code = 8467655473) IMM GRAN x10^3 (test 0.00-0.06 code = 2903286912) LYMPH x10^3 (test code 0.79 10*3/uL 1.32-3.29 L = 731-0) MONO x10^3 (test code 0.38 10*3/uL 0.33-0.92 = 742-7) EOS x10^3 (test code = 0.09 10*3/uL 0.03-0.39 711-2) BASO x10^3 (test code 0.01-0.07 = 704-7) Lab Interpretation Abnormal (test code = 37544-7) [facility] WITH [id number] 11:18:28 Test Item Value Reference Range Interpretation [...] RDW-SD (test code = 49.5 fL 39-49.9 07073-2) RDW-CV (test code = 15.5 % 12-15.5 788-0) PLT (test code = See_Comment L [Automated 777-3) message] The sy stem which generated this result transmitted reference range : 166 - 358 10*3/ ?L. The reference r abbey was not used to interpret this result as normal/abnormal . MPV (test code = 11.4 fL 9.5-12.9 50504-2) IPF % (test code = 8.7 % 1.3-7.7 H Platelet count 3964370633) measured by fluorescence method. NRBC/100 WBC (test See_Comment [Automat ed code = 7155019002) message] The system which generated this result transmitted reference range : 0.0 - 10.0 /100 WBCs. The refer ence range was not u sed to interpret th is result as normal/abnormal . NRBC x10^3 (test code See_Comment [Auto mated = 9103683088) message] The s ystem which generated this result transmitted reference range : 10*3/?L. The reference range was not used to interpret this result as normal/abnormal . GRAN MAT (NEUT) % 62.0 % (test code = 770-8) IMM GRAN % (test code 0.80 % = 2616356351) LYMPH % (test code = 22.2 % 736-9) MONO % (test code = 9.6 % 5905-5) EOS % (test code = 5.1 % 713-8) BASO % (test code = 0.3 % 706-2) GRAN MAT x10^3(ANC) 2.21 10*3/uL 1.88-7.09 (test code = 7930523259) IMM GRAN x10^3 (test 0.03 10*3/uL 0-0.06 code = 5097268846) LYMPH x10^3 (test code 0.79 10*3/uL 1.32-3.29 L = 731-0) MONO x10^3 (test code 0.34 10*3/uL 0.33-0.92 = 742-7) EOS x10^3 (test code = 0.18 10*3/uL 0.03-0.39 711-2) BASO x10^3 (test code 0.01-0.07 = 704-7) POLYCHROMASIA (test 2+ See_Comment [Automa arpit code = 31085-8) message] The system which generated this result [...] . Lab Interpretation Abnormal (test code = 47241-0) [facility] METABOLIC PANEL (NA, K, CL, CO2, GLUCOSE, BUN, CREATININE, CA)2022-02-13 10:39:07 Test Item Value Reference Range Interpretation Comments NA (test code = 136 mmol/L 135-145 1735194012) K (test code = 4.1 mmol/L 3.5-5 1089945929) CL (test code = 102 mmol/L 98-108 2801776555) CO2 TOTAL (test code = 27 mmol/L 23-31 4696527333) AGAP (test code = 2-16 0785089634) BUN (test code = 22 mg/dL 7-23 6562634246) GLUCOSE (test code = 94 mg/dL 70-110 7918874790) CREATININE (test code = 0.94 mg/dL 0.5-1.04 0607003661) CALCIUM (test code = 8.1 mg/dL 8.6-10.6 L 0037076321) eGFR (test code = mL/min/1.73m2 8875907925) KYLE (test code = KYLE) Association of [...] tests). Lab Interpretation Abnormal (test code = 00259-8) [facility] 01:50:10 Test Item Value Reference Range Interpretation Comments Height (test code = in 6377670183) Weight (test code = lbs 5213909299) Systolic BP (test code mmHg = 2782093938) Diastolic BP (test code mmHg = 8620381059) Heart Rate (test code = bpm 7036583732) BSA (test code = 1.85 m2 3114660737) IVS (test code = 1.22 cm 7902202035) Interventricular Septum 1.22 cm Diastolic Thickness by 2D (test code = 9928551) LVIDD (test code = 5.00 cm 7706982443) Left Ventricular End 117.9 mL Diastolic Volume by Teichholz Method (test code = 6334523) LVPWD (test code = 1.22 cm 8617949699) PW (test code = 1.22 cm 0.6-1.3 4858413006) EF(Teich) (test code = 74.60 % 9002329201) LVIDS (test code = 2.80 cm 0479106181) Left Ventricular End 29.9 mL Systolic Volume by Teichholz Method (test code = 5242912) FS (test code = 44 % 4046556141) EF - 2D (test code = 74.60 % 00438805) LVOT diameter (test 2.16 cm code = 2353074093) LVOT area (test code = 3.70 cm2 2787917599) Ao root diam (test code 3.40 cm = 9877133925) Aortic root (test code 3.4 cm = 3164517201) Ao root annulus (test 3.4 cm code = 0955479992) LA size (test code = 3.4 cm 5179244234) TR Peak Spencer (test code 330.0 cm/s = 8306316223) Triscuspid Valve mmHg Regurgitation Peak Gradient (test code = 0794168320) PV REGURGITATION PEAK mmHg GRADIENT (test code = 4255529499) PI dec slope (test code 137.20 cm/s2 = 0126504096) LAV(MOD-sp4) (test code 102.90 mL = 4975146384) MV Peak E Spencer (test 84.1 cm/s code = 2051579832) MV Peak A Spencer (test 40.1 cm/s code = 6550050701) E/A ratio (test code = ratio 0454822528) MV valve area p 1/2 3.70 cm2 method (test code = 8908152392) MV dec slope (test code 413.00 cm/s2 = 3617987911) MV P1/2t max spencer (test 83.70 cm/s code = 9891509505) MV Prop V (test code = 41.80 cm/s 1150629188) Tapse (test code = 1.83 cm 8636820411) LVOT stroke volume 96.90 cm3 (test code = 7784551668) LVOT peak spencer (test 125.5 cm/s code = 9657162210) LVOT mn grad (test code mmHg = 7356147938) AV LVOT peak gradient mmHg (test code = 2123613159) LVOT peak VTI (test 26.4 cm code = 3707899315) LV V1 mean (test code = 78.10 cm/s 2087959661) Aortic valve mean 103.7 cm/s velocity (test code = 8100165073) Ao peak spencer (test code 165.6 cm/s = 3461264734) Ao VTI (test code = 37.2 cm 8863045871) AV area by cont VTI 2.6 cm2 (test code = 4982927860) AV area peak spencer (test 2.8 cm2 code = 2048693183) Ao max PG (test code = 11.00 mm[Hg] 4294988779) AV peak gradient (test mmHg code = 8347450727) AV valve area (test 2.60 cm2 code = 5835043415) AV mean gradient (test mmHg code = 1922257016) LA Volume Index (BP) 55.2 mL/m2 (test code = 4703771245) LA volume (BP) (test 102.1 mL code = 9635441902) LAV(MOD-sp2) (test code 86.10 mL = 9454398902) A2C EF (test code = 61.20 % 0357743382) EF(sp2-el) (test code = 61.60 % 7472998528) SV(MOD-sp2) (test code 47.10 mL = 7953072515) LV Diastolic Volume 70.7 mL (BP) (test code = 4680825794) A4C EF (test code = 53.00 % 1772665249) EF(MOD-bp) (test code = 56.70 % 8112785841) EF(sp4-el) (test code = 53.90 % 3140695608) LV Systolic Volume (BP) 30.6 mL (test code = 5949168014) SV(MOD-bp) (test code = 40.10 mL 4028153361) SV(MOD-sp4) (test code 32.40 mL = 3442067773) SV(sp4-el) (test code = 33.10 mL 9896375753) EF (test code = 7972982748) Left Ventricular Stroke 40.1 mL Volume by 2-D Biplane-MOD (test code = 2453200) LV Diastolic Volume 38.2 mL/m2 Index (BP) (test code = 9219241890) LV Systolic Volume 16.5 mL/m2 Index (BP) (test code = 6603936090) Radiology Study observation (narrative) (test code = 55555-3) KYLE (test code = KYLE) ?Left?Ventricle: Left [...] 1.00The left ventricular wall motion is normal. [facility]TR[facility] [id number] 05:45:01 Test Item Value Reference Interpretation Comments Range TROPONIN I (test See_Comment [Automated code = 0396596501) message] The system which generated this result [...] biotin. Lab Interpretation Normal (test code = 23241-8) [facility] [id number] 05:41:40 Test Item Value Reference Range Interpretation Comments NT-proBNP (test code 4250 pg/mL See_Comment H [Autom ated = 2010006577) message] The system which generated this result transmitted reference range : <=125. The reference range was not used to interpret this result as normal/abnormal . KYLE (test code = KYLE) Biotin has been reported to cause a negative bias, interpret results relative to patient's use of biotin. Lab Interpretation Abnormal (test code = 16600-6) [facility] [id number] 05:35:21 Test Item Value Reference Range Interpretation [...] seconds. Lab Interpretation Normal (test code = 48028-8) [facility] [id number] 05:35:21 Test Item Value Reference Range Interpretation [...] seconds. Lab Interpretation Normal (test code = 11984-7) [facility] CenterPROTHR[facility] / [id number] 05:33:21 Test Item Value Reference Range Interpretation [...] tions. Lab Interpretation (test Normal code = 26470-8) [facility]. METABOLIC PANEL (76964)2022-02-11 05:33:21 Test Item Value Reference Range Interpretation Comments NA (test code = 137 mmol/L 135-145 5189386321) K (test code = 4.3 mmol/L 3.5-5 9626948620) CL (test code = 103 mmol/L 98-108 3210814316) CO2 TOTAL (test code = 25 mmol/L 23-31 1318949096) AGAP (test code = 2-16 5535609281) BUN (test code = 19 mg/dL 7-23 6215527528) GLUCOSE (test code = 120 mg/dL 70-110 H 6552553260) CREATININE (test code = 1.15 mg/dL 0.5-1.04 H 8539658775) TOTAL BILI (test code = 0.9 mg/dL 0.1-1.4 0811588381) CALCIUM (test code = 8.9 mg/dL 8.6-10.6 9080962943) T PROTEIN (test code = 6.6 g/dL 6.3-8.2 2773883869) ALBUMIN (test code = 4.0 g/dL 3.5-5 7141080963) ALK PHOS (test code = 73 U/L 34-122 7805003581) ALTv (test code = 18 U/L 5-35 1742-6) AST(SGOT) (test code = 31 U/L 13-40 0131255857) eGFR (test code = mL/min/1.73m2 2634029966) KYLE (test code = KYLE) Association of [...] tests). Lab Interpretation Abnormal (test code = 01610-5) [facility]. METABOLIC PANEL (58559)2022-02-11 05:33:21 Test Item Value Reference Range Interpretation Comments NA (test code = 137 mmol/L 135-145 9535648132) K (test code = 4.3 mmol/L 3.5-5.0 8524997752) CL (test code = 103 mmol/L 98-108 3438884566) CO2 TOTAL (test code = 25 mmol/L 23-31 9320285183) AGAP (test code = 2-16 7813943800) BUN (test code = 19 mg/dL 7-23 8331916479) GLUCOSE (test code = 120 mg/dL 70-110 H 1361762666) CREATININE (test code = 1.15 mg/dL 0.50-1.04 H 3278423827) TOTAL BILI (test code = 0.9 mg/dL 0.1-1.1 2916195486) CALCIUM (test code = 8.9 mg/dL 8.6-10.6 3385740396) T PROTEIN (test code = 6.6 g/dL 6.3-8.2 1551912051) ALBUMIN (test code = 4.0 g/dL 3.5-5.0 3077059372) ALK PHOS (test code = 73 U/L 34-122 1937788863) ALTv (test code = 18 U/L 5-35 1742-6) AST(SGOT) (test code = 31 U/L 13-40 4751274001) eGFR (test code = mL/min/1.73m2 4930229948) KYLE (test code = KYLE) Association of [...] tests). Lab Interpretation Abnormal (test code = 77559-1) [facility] / [id number] 05:33:21 Test Item Value Reference Range Interpretation Comments PROTIME PATIENT (test See_Comment [Auto mated message] code = 5964-2) The system [employer] ich generated this result transmitted ref erence range: 12.0 - 1 4.7 Seconds. The re ference range was not u sed to interpret this result as normal/abnor mal. INR (test code = 6301-6) Nor mal INR <1.1; Warfarin Therap eutic range 2.0 to 3. 0 or 2.5 to 3.5, dep ending upon the indica tions. Lab Interpretation (test Normal code = 11927-8) [facility] WITH [id number] 05:14:37 Test Item Value Reference Range Interpretation Comments WBC (test code = See_Comment [Automated 0990-2) message] The sy stem which generated this result transmitted reference range : 4.30 - 11.10 10*3/?L. The reference range was not used to interpret this result as normal/abnormal . RBC (test code = See_Comment L [Automated 049-8) message] The sy stem which generated this [...] RDW-SD (test code = 47.9 fL 39-49.9 98455-8) RDW-CV (test code = 14.9 % 12-15.5 788-0) PLT (test code = See_Comment L [Automated 777-3) message] The sy stem which generated this result transmitted reference range : 166 - 358 10*3/ ?L. The reference r abbey was not used to interpret this result as normal/abnormal . MPV (test code = 9.1 fL 9.5-12.9 L 67650-2) NRBC/100 WBC (test See_Comment [Automat ed code = 4207852138) message] The system which generated this result transmitted reference range : 0.0 - 10.0 /100 WBCs. The refer ence range was not u sed to interpret th is result as normal/abnormal . NRBC x10^3 (test code See_Comment [Auto mated = 5628365886) message] The s ystem which generated this result transmitted reference range : 10*3/?L. The reference range was not used to interpret this result as normal/abnormal . GRAN MAT (NEUT) % 78.5 % (test code = 770-8) IMM GRAN % (test code 0.20 % = 5331018206) LYMPH % (test code = 11.6 % 736-9) MONO % (test code = 8.4 % 5905-5) EOS % (test code = 1.1 % 713-8) BASO % (test code = 0.2 % 706-2) GRAN MAT x10^3(ANC) 3.45 10*3/uL 1.88-7.09 (test code = 2007083153) IMM GRAN x10^3 (test 0-0.06 code = 4331165529) LYMPH x10^3 (test code 0.51 10*3/uL 1.32-3.29 L = 731-0) MONO x10^3 (test code 0.37 10*3/uL 0.33-0.92 = 742-7) EOS x10^3 (test code = 0.05 10*3/uL 0.03-0.39 711-2) BASO x10^3 (test code 0.01-0.07 = 704-7) Lab Interpretation Abnormal (test code = 72480-8) [facility] Coronavirus 2019 [id number] 18:08:00 Test Item Value Reference Range Interpretation [...] det ection of nucleic acids f rom oesOYLX-KfZ-1 v irus and diagnosis of SA RS-CoV-2 virusinfection. It is an Emergency Use Authorization ( EUA) testauthorized by the U.S. FDA. BASIC METABOLIC [id number] 09:37:00 Test Item Value Reference Range Interpretation [...] = 9.0 mg/dL 8.0-10.5 N CA) PROTHROMBIN [id number] 09:32:00 Test Item Value Reference Range Interpretation [...] (to prevent recurrent infar ct). 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 [facility] - XR CHEST 1 [id number] 00:00:00 EDUARDO MYRICK MANCHESTERName: LIO WATTS : 1955 Sex: F FAX: Carmenza Kelly [phone] [place]: St: ADM FAX: Mike Scales MD [phone] FAX: Bahman Chopra [phone] Name: [facility] : 1955 Age/S: 66/F [address] [place] [address] Unit #: [id number] Loc: [place] [address] Phys: Bahman Chopra [facility] Acct: [id number] Dis Date: Status: ADM IN PHONE #: [phone] Exam Date: 06/17/2021 1320 FAX #: [phone] Reason: WATCHMAN EXAMS: CPT CODE: [id number] XR CHEST 1 V 03264 PROCEDURE INFORMATION: Exam: XR Chest Exam date [...] Lund MD; Bahman Chopra Technologist: RT Taylor(Marika) Lit Date/Time/By: 06/17/2021 (0770) : By: IselaKWL Orig Print D/T: S: 06/17/2021 (8508) PAGE 1 Signed ReportCOVID 19 Asymptomatic IH [id number] 12:29:00 Test Item Value Reference Range Interpretation [...] high or waivedcomplexit y tests. BASIC METABOLIC [id number] 11:37:00 Test Item Value Reference Range Interpretation [...] code = 9.0 mg/dL 8.0-10.5 N CA) [id number] 11:37:00 Test Item Value Reference Range Interpretation Comments PREALBUMIN (test code = PREALB) 24.3 mg/dL 16.0-40.0 N PROTHROMBIN [id number] 11:03:00 Test Item Value Reference Range Interpretation [...] (to prevent recurrent infar ct). CBC W/AUTO [id number] 10:59:00 Test Item Value Reference Range Interpretation [...] 0.0-0.1 N NRBC#) - XR CHEST 2 [id number] 00:00:00 Name: LIO WATTS : 1955 Sex: F FAX: Carmenza Kelly [phone] [place]: St: PRE FAX: Mike Scales MD [phone] Name: LIO WATTS [facility] : 1955 Age/S: 66/F [address] [place] [address] Unit #: [id number] Loc: [place], [place] [address]Whmc: Mike Lund MD Acct: [id number] Dis Date: Status: PRE SDC PHONE #: [phone] Exam Date: 06/16/2021 1120 FAX #: [phone] Reason: PREOP EXAMS: CPT CODE: [id number] XR CHEST 2 V 51920 PROCEDURE INFORMATION: Exam: XR Chest Exam date [...] Andree(R) Trnscrd Date/Time/By: 06/16/2021 (1137) : By: [email or web address] Orig Print D/T: S: 06/16/2021 (6211) PAGE 1 Signed ReportGastrointestinal aprua4010-88-48 04:35:05 Test Item Value Reference Interpretation Comments [...] Rotavirus PCR (test Not Detected code = 4667490) Salmonella PCR (test Not Detected code = [...] (test code = 7124) [facility] [id number] 19:30:47 Test Item Value Reference Range Interpretation Comments Case number (test [id number] code = 6664737) Surgical pathology See link below for PDF report (test code = Lab Report 2255) Result status (test This is Supplemental code = 9229280) Report for [id number] [facility]2021-04-09 16:31:00 Test Item Value Reference Range Interpretation Comments POC Activated Clotting Time (test code 153 s = POC Activated Clotting Time) [facility]ftnxzmQUNJFDLDTT9602-83-99 16:31:00 Test Item Value Reference Range Interpretation Comments POC Activated Clotting Time (test code 153 s = POC Activated Clotting Time) [facility] AllenMhuqbfzQIHHOFMVSB5663-75-09 16:31:00 Test Item Value Reference Range Interpretation Comments POC Activated Clotting Time (test code 153 s = POC Activated Clotting Time) [facility] AllenLtcvymqPTXAGUNFNY3997-45-25 16:31:00 Test Item Value Reference Range Interpretation Comments POC Activated Clotting Time (test code 153 s = POC Activated Clotting Time) [facility] AllenVanhezkUGVNWHZKTW1350-79-06 16:31:00 Test Item Value Reference Range Interpretation Comments POC Activated Clotting Time (test code 153 s = POC Activated Clotting Time) [facility] AllenLbjegfnPDWUFLGHNG1945-86-26 16:31:00 Test Item Value Reference Range Interpretation Comments POC Activated Clotting Time (test code 153 s = POC Activated Clotting Time) [facility] AllenCxrqcdkGXBTHXVSEU5472-60-19 16:31:00 Test Item Value Reference Range Interpretation Comments POC Activated Clotting Time (test code 153 s = POC Activated Clotting Time) [facility] AllenYgvyousAMZFVZBZOM6001-33-93 14:37:00 Test Item Value Reference Range Interpretation Comments POC Activated Clotting Time (test code 454 s = POC Activated Clotting Time) [facility] [id number] 14:37:00 Test Item Value Reference Range Interpretation Comments POC Activated Clotting Time (test code 454 s = POC Activated Clotting Time) [facility] [id number] 14:37:00 Test Item Value Reference Range Interpretation Comments POC Activated Clotting Time (test code 454 s = POC Activated Clotting Time) [facility] [id number] 14:37:00 Test Item Value Reference Range Interpretation Comments POC Activated Clotting Time (test code 454 s = POC Activated Clotting Time) [facility] [id number] 14:37:00 Test Item Value Reference Range Interpretation Comments POC Activated Clotting Time (test code 454 s = POC Activated Clotting Time) [facility] [id number] 14:37:00 Test Item Value Reference Range Interpretation Comments POC Activated Clotting Time (test code 454 s = POC Activated Clotting Time) [facility]rxMEDMTCBMVR8266-38-31 14:37:00 Test Item Value Reference Range Interpretation Comments POC Activated Clotting Time (test code 454 s = POC Activated Clotting Time) [facility]TjcsbmtQIBISUWDUT6446-42-41 14:13:00 Test Item Value Reference Range Interpretation Comments POC Activated Clotting Time (test code 354 s = POC Activated Clotting Time) [facility] AllenVsshmzdORQCVMEAKL1713-07-58 14:13:00 Test Item Value Reference Range Interpretation Comments POC Activated Clotting Time (test code 354 s = POC Activated Clotting Time) [facility] AllenNzqrqltOOQEXENYPE9621-89-80 14:13:00 Test Item Value Reference Range Interpretation Comments POC Activated Clotting Time (test code 354 s = POC Activated Clotting Time) [facility] AllenAqzuawdMXBLASOFZL6717-95-91 14:13:00 Test Item Value Reference Range Interpretation Comments POC Activated Clotting Time (test code 354 s = POC Activated Clotting Time) [facility] AllenSmazipqEUQJOBLGUQ4571-99-92 14:13:00 Test Item Value Reference Range Interpretation Comments POC Activated Clotting Time (test code 354 s = POC Activated Clotting Time) [facility] AllenEesjljgCMROZJOHZT9022-43-22 14:13:00 Test Item Value Reference Range Interpretation Comments POC Activated Clotting Time (test code 354 s = POC Activated Clotting Time) [facility] AllenLqlzppdRTBNBDCBCC7830-84-18 14:13:00 Test Item Value Reference Range Interpretation Comments POC Activated Clotting Time (test code 354 s = POC Activated Clotting Time) [facility] BANK TBZRNGS8739-04-45 10:37:00Negative (08/29/20 5:37 AM) [facility] UCWSA7544-37-88 10:37:54334Veclksda HermannCHEM PANEL 2020-08-29 10:37:0028[facility] VLJDO4559-15-55 10:37:001.01[facility] GMGAP1946-53-81 10:37:66512Ewduqwzc [facility]CHE[facility] DDZPO6451-25-98 10:37:003.8[facility] LGWPF3740-43-48 10:37:40069Xvqhmsdx [facility]CHE[facility] JNTZD9601-72-51 10:37:0028[facility] VIVWX3366-25-40 10:37:009.8 [facility] SMAGU5163-11-73 10:37:0011.8[facility]annCHE[facility] PANEL 2020-08-29 10:37:0059[facility]CHE[facility] FFMQE1251-98-76 10:37:002.9[facility] KydpkvkEMXNCUXHVT5974-89-43 10:37:006.8[facility] ZoqqwcwVPQGBBOGJQ6537-36-20 10:37:004.47[facility] RpcuqhmQDUVCOEBBW4722-80-62 10:37:0010.6[facility] WWBQJHWMXD5749-70-46 10:37:0034.0[facility] FlsjwawLGYJWILFWW9172-88-71 10:37:00 76.1[facility] YzmnjhbHGBYEIJXYJ2405-62-35 10:37:00 Test Item Value Reference Range Interpretation Comments MCH (test code = MCH) 23.8 pg 27.0-31.0 [facility] EgxcrtwEPZPDCLYSG6272-69-47 10:37:0031.3[facility]annHEMATOLOGY 2020-08-29 10:37:0018.2[facility] HqhmadwYEVEHDWZRV0125-59-33 10:37:41789Ptufjhps HvopsvnBLBQYLACLX5802-42-59 10:37:007.5[facility] AifofvaJWZGDOMOKN2670-45-43 10:37:00 Test Item Value Reference Range Interpretation Comments PT (test code = PT) 12.8 s 12.0-14.7 [facility] KkvhgqfSJDEMOZXMQ1180-19-88 10:37:00 Test Item Value Reference Range Interpretation Comments INR (test code = INR) 0.97 1 0.85-1.17 [facility] SpdjgydZDLNHZTXSU4952-21-17 10:37:00 Test Item Value Reference Range Interpretation Comments PTT (test code = PTT) 25.0 s 22.9-35.8 [facility] HvyqqrpRGZWKVPFWS0643-47-53 10:37:0070.5[facility]annHEMATOLOGY 2020-08-29 10:37:0018.8[facility] QskagqhIKLQMXFEFY2622-19-65 10:37:009.5[facility] OmevhhePQOAFHVEGT4618-69-46 10:37:000.9[facility] GnmssfsIUZGPNZTIG3902-63-07 10:37:000.3[facility] AexvgrjNLTTJQMCKL6491-12-58 10:37:004.8[facility] RZTGUMWVMU7684-85-34 10:37:001.3[facility] VjbmhlzOVHVHVCZWD1497-05-53 10:37:000.6 [facility] LvsjebrJBMOOLFCIU0812-60-44 10:37:000.1[facility]annHEMATOLOGY 2020-08-29 10:37:001+ *ABN*(08/29/20 5:37 AM)[facility] NavkbieWAXCQFAEJB0861-86-35 10:37:00Not Detected (08/29/20 5:37 AM)[facility] RESULTS 2020-08-29 10:37:00Negative (08/29/20 5:37 AM)[facility]annCHE[facility] JHCJP8263-04-32 10:37:65613Xbtzheeh HermannCHEM AJJYB6678-02-01 10:37:0028[facility]annCHE[facility] ISJAU1883-69-97 10:37:001.01[facility]CHE[facility] DKQER3643-42-59 10:37:33663 [facility] ARPYG0550-36-02 10:37:003.8[facility]annCHEM PANEL 2020-08-29 10:37:06518Dfhssycq [facility]annCHEM WBADB8495-60-23 10:37:0028[facility]CHE[facility] RBHEH3757-81-05 10:37:009.8[facility]annCHE[facility] NJLOK1217-41-49 10:37:0011.8[facility]CHE[facility] EILYB5031-10-32 10:37:0059[facility] IWJGD1638-11-35 10:37:002.9[facility] CdvromnVLXRWMDCCH8214-90-23 10:37:006.8 [facility] PpjmmnwWGZTTLHZAW5876-28-61 10:37:004.47[facility]annHEMATOLOGY 2020-08-29 10:37:0010.6[facility] LforywcKBHZBHGDVK3188-15-71 10:37:0034.0[facility] MmsxkgdQNXEUOFQSG7444-54-91 10:37:0076.1[facility] ZfaufizWPIPBWWMGZ3915-15-34 10:37:00 Test Item Value Reference Range Interpretation Comments MCH (test code = MCH) 23.8 pg 27.0-31.0 [facility] VcbuhilSBCXQPJUVW2429-95-72 10:37:0031.3[facility]annHEMATOLOGY 2020-08-29 10:37:0018.2[facility] FsjegokSXTSQJCIFF8389-54-60 10:37:25433Ugszoqfl NbvikoyTQKWOASSOH7303-90-23 10:37:007.5[facility] KjvhxbtQKVMMFFMUO3746-55-44 10:37:00 Test Item Value Reference Range Interpretation Comments PT (test code = PT) 12.8 s 12.0-14.7 [facility] QcihebzAUWTBIBJUE5911-47-85 10:37:00 Test Item Value Reference Range Interpretation Comments INR (test code = INR) 0.97 1 0.85-1.17 [facility] IvajgvqONQTLATHWO9793-93-49 10:37:00 Test Item Value Reference Range Interpretation Comments PTT (test code = PTT) 25.0 s 22.9-35.8 [facility] HabzfcuZJBPQRQTNG0845-24-57 10:37:0070.5[facility]annHEMATOLOGY 2020-08-29 10:37:0018.8[facility] XnlvmkbGISSWXONKT8756-29-18 10:37:009.5[facility] ZnhrbgvCPWCSMYXGI8843-45-61 10:37:000.9[facility] KlcxjcrGFMOQAYFJK5370-17-80 10:37:000.3[facility] UuhdcrmSOOFFTTQKY3584-69-83 10:37:004.8[facility] MRLBVMFFZI2670-90-68 10:37:001.3[facility] SyhzwuyLPMDWSDVXK1878-91-30 10:37:000.6 [facility] OsvpdavKSEFYXCVZX3399-96-08 10:37:000.1[facility]annHEMATOLOGY 2020-08-29 10:37:001+ *ABN*(08/29/20 5:37 AM)[facility] WqywkjrIIYPHDZGYP4092-00-28 10:37:00Not Detected (08/29/20 5:37 AM)[facility]BL[facility] B[facility] RESULTS 2020-08-29 10:37:00Negative (08/29/20 5:37 AM)[facility]CHE[facility] XZVOM4093-53-72 10:37:82173Tygfhsst HermannCHEM VJHXJ9473-48-99 10:37:0028[facility]annCHE[facility] JFIEV2012-15-04 10:37:001.01[facility]annCHE[facility] VCEQX6549-68-69 10:37:73227 [facility] YQFHP0548-31-20 10:37:003.8[facility]annCHEM PANEL 2020-08-29 10:37:60425Lyybupax HermannCHEM TXNZQ7261-73-73 10:37:0028[facility]annCHEM XBSMH5009-23-34 10:37:009.8[facility]annCHEM EWQZC7528-02-23 10:37:0011.8[facility]annCHEM QZKIB3470-30-96 10:37:0059[facility]annCHEM UFFYI2438-46-08 10:37:002.9[facility] ClgawcsUAJRXGCGAH5433-37-85 10:37:006.8 [facility] WbfmadrSJUYXPDSWO9156-88-13 10:37:004.47[facility]annHEMATOLOGY 2020-08-29 10:37:0010.6[facility] TkwxhhiXMDTKBBXET0856-72-98 10:37:0034.0[facility] JlqwpyyHQLBRDZSGI3362-12-71 10:37:0076.1[facility] AbspgwpGCLJXOVVCY3599-32-54 10:37:00 Test Item Value Reference Range Interpretation Comments MCH (test code = MCH) 23.8 pg 27.0-31.0 [facility] DcvxccrCCUKQMDHEW1566-41-46 10:37:0031.3[facility]annHEMATOLOGY 2020-08-29 10:37:0018.2[facility] JkjmlydTZWCDOMMQS9520-55-02 10:37:69625Apkeeocs MtiahntOBYFTERSUL7852-73-65 10:37:007.5[facility] YirxmcqRHWVLYDWMQ9220-10-76 10:37:00 Test Item Value Reference Range Interpretation Comments PT (test code = PT) 12.8 s 12.0-14.7 [facility] MhaftujZWTKETRKMK3778-54-24 10:37:00 Test Item Value Reference Range Interpretation Comments INR (test code = INR) 0.97 1 0.85-1.17 [facility] AubdtsjPAOPIOYOTN3633-90-99 10:37:00 Test Item Value Reference Range Interpretation Comments PTT (test code = PTT) 25.0 s 22.9-35.8 [facility] UcgzrtyVGUUIHGHZR9237-14-08 10:37:0070.5[facility]annHEMATOLOGY 2020-08-29 10:37:0018.8[facility] NmdkntzMJNDBKXCJI3420-40-30 10:37:009.5[facility] AmadmnrXAGVMBJMUN3465-04-82 10:37:000.9[facility] HvznqdgJGPHJCAMNJ9909-33-49 10:37:000.3[facility] MkmeikuVCRZGELPLC7495-20-47 10:37:004.8[facility] MDZQKKWDMZ4546-02-99 10:37:001.3[facility] UazdtciXANODCSBTW0333-33-94 10:37:000.6 [facility] QrnanvzFLLAKJVSSH9492-03-25 10:37:000.1[facility]annHEMATOLOGY 2020-08-29 10:37:001+ *ABN*(08/29/20 5:37 AM)[facility] LoycryaNEWQJNHHIK4839-03-59 10:37:00Not Detected (08/29/20 5:37 AM)[facility]annBL[facility]OD BANK RESULTS 2020-08-29 10:37:00Negative (08/29/20 5:37 AM)[facility]annCHE[facility] TWKFP1314-01-18 10:37:77265Ixzflqyu HermannCHEM GMOCB1506-56-66 10:37:0028[facility]annCHEM NEGSG5322-61-75 10:37:001.01[facility]annCHEM PBBAL1456-70-49 10:37:79165 [facility]CHE[facility] CWYPP2080-49-87 10:37:003.8[facility]annCHEM PANEL 2020-08-29 10:37:15054Ptreqjtm HermannCHEM NBJYJ6551-41-36 10:37:0028[facility]annCHEM JLNVF3470-99-15 10:37:009.8[facility]annCHEM THHFH7133-78-19 10:37:0011.8[facility]annCHEM RBLMF2263-94-17 10:37:0059[facility]annCHE[facility] XPPOH9937-48-73 10:37:002.9[facility] KuxauxwFTWKZTQTMS8558-27-63 10:37:006.8 [facility] DxkseklSEDWKMKBND1483-72-23 10:37:004.47[facility]annHEMATOLOGY 2020-08-29 10:37:0010.6[facility] DubivsoCEJRJAGHUW9488-72-39 10:37:0034.0[facility] QsxyzvtVGVIGXXEHH9925-56-46 10:37:0076.1[facility] ObhznbqMERUFVZIMD2034-07-77 10:37:00 Test Item Value Reference Range Interpretation Comments MCH (test code = MCH) 23.8 pg 27.0-31.0 [facility] SsmrclnHFNRAUTLFH0338-15-92 10:37:0031.3[facility]annHEMATOLOGY 2020-08-29 10:37:0018.2[facility] TlfxjfzQTZUMAZSCQ9537-09-14 10:37:64670Mexcfqul RhvlkktKMJJHINRIV8138-40-86 10:37:007.5[facility] WmbamlrUQNOSYDYJA6741-51-12 10:37:00 Test Item Value Reference Range Interpretation Comments PT (test code = PT) 12.8 s 12.0-14.7 [facility] BkadhkuWPXFHYBNPK5066-69-92 10:37:00 Test Item Value Reference Range Interpretation Comments INR (test code = INR) 0.97 1 0.85-1.17 [facility] IsolqtzQHGTKNBRQO8320-04-27 10:37:00 Test Item Value Reference Range Interpretation Comments PTT (test code = PTT) 25.0 s 22.9-35.8 [facility] SovxlzqCWVGGOVKAJ4956-31-23 10:37:0070.5[facility]annHEMATOLOGY 2020-08-29 10:37:0018.8[facility] WgezfzpWDEZSHJRPY9734-84-32 10:37:009.5[facility] PtggmixWADGDCUYIR7328-16-26 10:37:000.9[facility] EstuqxtZONBJFYZVE6938-34-81 10:37:000.3[facility] StzzonwTTCXOTJGOP5999-91-58 10:37:004.8[facility] NXKECQMUUN1889-18-69 10:37:001.3[facility] DuefruzDAEBFZJBVQ9447-41-09 10:37:000.6 [facility] JeiyvwfQCCJQDIDZV8999-67-61 10:37:000.1[facility]annHEMATOLOGY 2020-08-29 10:37:001+ *ABN*(08/29/20 5:37 AM)[facility] WntnkihOIFDTQKYWS1321-72-70 10:37:00Not Detected (08/29/20 5:37 AM)[facility]annBL[facility]OD BANK RESULTS 2020-08-29 10:37:00Negative (08/29/20 5:37 AM)[facility]annCHE[facility] ZTXOE1888-82-73 10:37:08535Vhcswqth HermannCHEM GXHBT9913-30-61 10:37:0028[facility]annCHEM TOHOG6590-56-44 10:37:001.01[facility]annCHEM LOYUO0791-10-22 10:37:64380 [facility] YSPTM2691-81-72 10:37:003.8[facility]annCHEM PANEL 2020-08-29 10:37:99389Hdewjuay HermannCHEM ICQNT2841-36-12 10:37:0028[facility]annCHEM SSWYI2809-47-60 10:37:009.8[facility]annCHEM IOKWE4516-60-57 10:37:0011.8[facility]annCHEM EIKPJ3026-56-33 10:37:0059[facility]annCHEM BOHKE7791-01-63 10:37:002.9[facility] VejzsxhEWWDSEHDRK2879-51-31 10:37:006.8 [facility] OxmznmyOUZZOJNJUU9294-42-49 10:37:004.47[facility]annHEMATOLOGY 2020-08-29 10:37:0010.6[facility] HcdihdvIQPAMUAFDF8292-61-95 10:37:0034.0[facility] RxleqjpZSPBVQQPFI8435-75-78 10:37:0076.1[facility] WfqwfxhDQCGAKIZQZ3565-58-21 10:37:00 Test Item Value Reference Range Interpretation Comments MCH (test code = MCH) 23.8 pg 27.0-31.0 [facility] SkrhmafJPKLLHKCDD1659-05-06 10:37:0031.3[facility]annHEMATOLOGY 2020-08-29 10:37:0018.2[facility] HfnrnofHUGCYHFMAA5776-85-56 10:37:43872Baxnftfj QvkyfcoOQPCMZRDXG2434-51-46 10:37:007.5[facility] KhuaqqgYKVBVUBPIG1698-09-60 10:37:00 Test Item Value Reference Range Interpretation Comments PT (test code = PT) 12.8 s 12.0-14.7 [facility] MfkiatoZXYKMGFTKI9659-29-40 10:37:00 Test Item Value Reference Range Interpretation Comments INR (test code = INR) 0.97 1 0.85-1.17 [facility] YdnfwtsYPCNWKZCSI4242-29-70 10:37:00 Test Item Value Reference Range Interpretation Comments PTT (test code = PTT) 25.0 s 22.9-35.8 [facility] PkqhaqgXRRRSMHSRC7051-37-65 10:37:0070.5[facility]annHEMATOLOGY 2020-08-29 10:37:0018.8[facility] KlzbyteSVIADPGKYI2409-60-84 10:37:009.5[facility] ZcmdhzwUGZEHAWQLP4235-64-13 10:37:000.9[facility] HyoybsmQXBOYFLTYI3661-61-48 10:37:000.3[facility] DamrftjMACUVWATLU0380-88-14 10:37:004.8[facility] REVKDATEPZ6043-27-51 10:37:001.3[facility] MlvqcsdBJHOLGVIJY1138-86-74 10:37:000.6 [facility] AynfezkDLCEGDDFKB3955-72-12 10:37:000.1[facility]annHEMATOLOGY 2020-08-29 10:37:001+ *ABN*(08/29/20 5:37 AM)[facility] HxpylxbLBWBIXFBIY6373-07-19 10:37:00Not Detected (08/29/20 5:37 AM)[facility]annBLOOD BANK RESULTS 2020-08-29 10:37:00Negative (08/29/20 5:37 AM)[facility] HermannCHEM NYTAB8226-12-09 10:37:79600Redvmmqt HermannCHEM FQCKC8544-39-07 10:37:0028[facility]annCHEM OTOEG7499-84-11 10:37:001.01[facility]annCHEM GEMOQ9802-35-13 10:37:54320 [facility]CHE[facility] MOQWN1271-19-61 10:37:003.8[facility]annCHEM PANEL 2020-08-29 10:37:83500Gbdsoces HermannCHEM YHYWI8475-65-00 10:37:0028[facility]annCHEM NOXEV1436-59-07 10:37:009.8[facility]annCHEM VYCED4420-52-18 10:37:0011.8[facility]annCHEM GUGRT6436-28-32 10:37:0059[facility]annCHE[facility] WNKMP2360-70-92 10:37:002.9[facility] QyqxaxdQEDIPDTQDV2515-30-40 10:37:006.8 [facility] ZsuwxwkJGARTZMDCQ8796-40-18 10:37:004.47[facility]annHEMATOLOGY 2020-08-29 10:37:0010.6[facility] YbhiqkaBDMAEEPFDK2069-18-64 10:37:0034.0[facility] OrhlzegLUOGLVHWZL7348-95-91 10:37:0076.1[facility] UqgpzimGEGHYFTNXX5473-36-12 10:37:00 Test Item Value Reference Range Interpretation Comments MCH (test code = MCH) 23.8 pg 27.0-31.0 [facility] SlxxfnzKUIRBLHRWG7960-13-82 10:37:0031.3[facility]annHEMATOLOGY 2020-08-29 10:37:0018.2[facility] IofrbfhNRVDMXETTK4517-52-73 10:37:71584Tczjqsha ErjdsnsGKWGGWIKHP0303-53-67 10:37:007.5[facility] CzpgdokZOQZIVLLIL0671-40-76 10:37:00 Test Item Value Reference Range Interpretation Comments PT (test code = PT) 12.8 s 12.0-14.7 [facility] BgirvkmVKYDFGTFXQ6797-50-71 10:37:00 Test Item Value Reference Range Interpretation Comments INR (test code = INR) 0.97 1 0.85-1.17 [facility] IupwrpvAZRPNUDYQF1401-75-24 10:37:00 Test Item Value Reference Range Interpretation Comments PTT (test code = PTT) 25.0 s 22.9-35.8 [facility] TmheovqPJNWZRELED6024-32-24 10:37:0070.5[facility]annHEMATOLOGY 2020-08-29 10:37:0018.8[facility] QbgbbuuFOCSODRJNC4754-88-43 10:37:009.5[facility] ZuinnbeYFOSKMKPUY2074-80-00 10:37:000.9[facility] FxukejzENFWAYUZRX6710-89-68 10:37:000.3[facility] VywnkfjGYRPGCIJVZ8976-43-93 10:37:004.8[facility] CHNZNBGWTN0591-40-88 10:37:001.3[facility] LhqevilCKZKOGEMAB5695-89-61 10:37:000.6 [facility] FzchafqUTTEAOFHBZ1375-36-16 10:37:000.1[facility]annHEMATOLOGY 2020-08-29 10:37:001+ *ABN*(08/29/20 5:37 AM)[facility] KdmbtyaDXNDYYCBQO0442-46-11 10:37:00Not Detected (08/29/20 5:37 AM)[facility]annBLOOD BANK RESULTS 2020-08-29 10:37:00Negative (08/29/20 5:37 AM)[facility]annCHEM XUKIU9554-31-04 10:37:90830Nbnmvceu HermannCHEM MKFUT1596-70-86 10:37:0028[facility]annCHEM YRRLR1908-77-30 10:37:001.01[facility]annCHEM FDNJP2191-96-14 10:37:88272 [facility]CHE[facility] SPPBR0697-48-84 10:37:003.8[facility]annCHEM PANEL 2020-08-29 10:37:46697Hwxobhnu HermannCHEM PTRKJ9054-56-08 10:37:0028[facility]annCHEM MKLQY9758-19-38 10:37:009.8[facility]annCHEM MIVSG0201-09-63 10:37:0011.8[facility]annCHEM VKXNW1801-72-64 10:37:0059[facility]annCHEM ETEQM8573-52-06 10:37:002.9[facility] RspbszpHBKXXAZVBC8080-78-36 10:37:006.8 [facility] VtnjusbQPXQBMRGYT9554-21-52 10:37:004.47[facility]annHEMATOLOGY 2020-08-29 10:37:0010.6[facility] DhrmemnJADRWFEEPR7848-91-92 10:37:0034.0[facility] NeoytjtRAPFWKLUHK5233-87-32 10:37:0076.1[facility] TpcbsueNBBVOPABEA6467-42-49 10:37:00 Test Item Value Reference Range Interpretation Comments MCH (test code = MCH) 23.8 pg 27.0-31.0 [facility] CtzvkyxESFXIALPIR5219-08-09 10:37:0031.3[facility]annHEMATOLOGY 2020-08-29 10:37:0018.2[facility] RssboknIQZRMFKFOU8854-69-09 10:37:60566Ueqmvadq GgyqzywZDLHJSUJTP7519-92-47 10:37:007.5[facility] KquwchnSTDIXNZSCE9831-49-93 10:37:00 Test Item Value Reference Range Interpretation Comments PT (test code = PT) 12.8 s 12.0-14.7 [facility] GfapholQWWWVCHLLB4171-11-91 10:37:00 Test Item Value Reference Range Interpretation Comments INR (test code = INR) 0.97 1 0.85-1.17 [facility] BsohhkzUSXPQOVTPL9508-27-74 10:37:00 Test Item Value Reference Range Interpretation Comments PTT (test code = PTT) 25.0 s 22.9-35.8 [facility] CfpjggcZXOLTNHEWF2378-07-01 10:37:0070.5[facility]annHEMATOLOGY 2020-08-29 10:37:0018.8[facility] IttihwjGECHGDUTZA0820-80-47 10:37:009.5[facility] OgrqagsFJEIAOGVSG2379-83-01 10:37:000.9[facility] OgzteizCXNJKXPQFY0275-76-95 10:37:000.3[facility] RthvqsqFNDDYJBWCS3971-53-23 10:37:004.8[facility] UTTJPTANHQ6046-99-17 10:37:001.3[facility] PxwkcytGQFJNYDRPN9070-37-43 10:37:000.6 [facility] OcxdxmxCPZAMDMUWX7855-03-31 10:37:000.1[facility]annHEMATOLOGY 2020-08-29 10:37:001+ *ABN*(08/29/20 5:37 AM)[facility] JeksthbZPBGYCYXUV1843-50-82 10:37:00Not Detected (08/29/20 5:37 AM)[facility] HermannCHLAMYDIA, GC, TV,PCR, IN DLHHH7231-90-10 15:38:00 Test Item Value Reference Range Interpretation Comments FT (test code = CHTR) Not detected (qualifier Not Detected N value) FT (test code = Not detected (qualifier Not Detected N NGONO) value) FT (test code = TRVG) Not detected (qualifier Not Detected N value) [facility] [place] [facility] YCZKDFOGZXD7075-12-36 10:57:00 Test Item Value Reference Range Interpretation Comments Color (test code = UCOLR) Dk. Yellow Clarity (test code = UCLAR) Hazy Glucose (test code = UGLUC) NEGATIVE NEGATIVE N Bilirubin (test code = UBILI) NEGATIVE NEGATIVE N Ketones (test code = UKET) NEGATIVE NEGATIVE N Specific [place] (test code = 1.025 1.005-1.030 A USPGR) [...] = None Seen None Seen N URCRYS) [facility] [place] [facility]
[2022-08-05] MEDS ORDERED: KETOROLAC 30 MG/ML INJ ONE (10:43)
[2022-08-05 14:42] VITALS: TEMP 97; O2SAT 96
[2022-08-05 14:44] VITALS: BP 188/92
== END 2022-08-05 10:57 | disposition home or self-care (01) ==
LOC: ER 10:10
DX: G89.21 Chronic pain due to trauma (principal)
CPT/HCPCS: 96372; 99283

== ENCOUNTER 2022-08-06 15:45 | Emergency (ER) | payer OTHER ==
--- OUTSIDE RECORDS SUMMARY | 2022-08-06 16:07 | XMS REPORT | Continuity of Care Document ---
:1955 Author Organization [facility] t Address [address] [place] [address] Care Team Providers Name Role Phone Urmila [...] Attending Clinician Unavailable Robbi Bal Attending Clinician [facility] Attending Clinician Unavailable Isaias Whiteside RN Attending Clinician Unavailable TOMY MARIE Attending Clinician Unavailable Reilly Means MD Attending Clinician Ofe Shields MD Attending Clinician Tomy Marie MD Attending Clinician Doctor Unassigned, [place] Attending Clinician Unavailable Bill COLES Attending Clinician Unavailable Bill Rose Attending Clinician CHARITY MCALLISTER Attending Clinician Unavailable Charity Mcallister MD Attending Clinician GADIEL KOEHLER Attending Clinician Unavailable Mike Lund Attending Clinician Unavailable NIKOLAI REEVES Attending Clinician Unavailable Eliseo Arce MD Attending Clinician Carol Ann IZQUIERDO, Sarai Lieberman Attending Clinician [phone] Ashly Pelletier MA Attending Clinician Unavailable [...] RAMIREZ, Michael Corbin Attending Clinician Unavailable Team, [facility] Attending Clinician UnavailDO PORSHA Newell Attending Clinician Unavailable Gadiel Koehler MD Attending Clinician Tyrone JENKINS, Eveline Sierra Attending Clinician Eladio Colorado RN Attending Clinician Unavailable Geraldine SALGUERO, Leyda Attending Clinician [phone] Selvin RAMIREZ, Stefanie Attending Clinician Unavailable [...] gabino [facility] COMMUNITY PLAN [id number] 2012 STAR PLUS OON 00:00:00 [facility] [id number] 2019 DUAL COMPLETE HMO 00:00:00 [facility] [id number] 2019 PLUS 00:00:00 [facility] [id number] 2019 [place] STAR 00:00:00 [employer] MEDICARE ADV [id number] 2019 2019 00:00:00 00:00:00 Problems Condition Condition Condition Status Onset Resolution Last Treating Co mments Source Name Details Category Date Date Treatment Clinician Date Dyspnea, Dyspnea, Disease Active Unive rs unspecifie unspecifie 02-11 it y of d type d type 00:00: [place] [address] Medical Branch Gastropare Gastropare Disease Active Overview : Methodi sis sis 4-[address] 00:[facility] note l might be different from the original. Added automatic ally from request for surgery [id number] Dysphagia Dysphagia Disease Active Overview: Methodi 4-[address] 00:00: [facility] 00 note l might be different from the original. Added automatic ally from request for surgery [id number] CCL / EPS CCL / EPS Diagnosis Active 2020-10-15 Get PVI PVI 3-30 17:07:00 l ABLATION ABLATION 00:00: Patel n W/ CARTO / W/ CARTO / 00 GA / T GA / T Active [facility]2020 [facility] hoxazole 1-25 Clear 00:00: Garcia 00 [facility] trimetho DA Active SV [facility] prim 1-25 Clear 00:00: Garcia [facility] codeine DA Active SV N/V [facility] 1-25 Clear 00:00: Garcia [facility] Metoclop Propensi Active [place] ramide [...] 2017- Univers INGREDI 2-08 ity of 00:00: [place] [facility] TRIMETHO DRUG Active Hives Univers [...] [facility] Natural father Other - see comments [facility] Natural father Coronary Heart [facility] [place] Disease [facility] Natural father Hy[facility] mother [facility] Social History Social Habit Start Date Stop Date Quantity Comments Source History SDOH [facility] Frequency Hospita l History SDOH [facility] Std Drinks Hospit al History SDHI [facility] Exposure to 2022-04-30 2022-05-10 Yes University of SARS-CoV-2 (event) 00:00:00 10:25:00 [facility] Tobacco use and 2022-02-11 2022-02-11 Former smokeless Uni versity of exposure 00:00:00 00:00:00 tobacco user [facility] Tobacco Comment 2022-02-11 2022-02-11 Smokes approx 1-2 Un iversity of 00:00:00 00:00:00 cigarettes per [facility] day when she Branch smokes Alcohol intake 2020-12-08 2020-12-08 Current drinker [facility] dist 00:00:00 00:00:00 of [facility] (finding) Cigarettes smoked 2020-09-05 2020-09-[address] current (pack [facility]:00[facility] - [facility] Cigarette 2020-09-05 2020-09-05 [facility] pack-years 00:00:00 00:00:00 Hospital Alcohol Comment 2016-09-23 2016-09-23 rare [facility] 00:00:00 00:00:00 Hospital History of tobacco 2011-09-29 User of smokeless University of use 00:00:00 tobacco [facility] Sex Ass[birth year] At [birth year] [facility] 00:00:00 00:00:00 Smoking Status Start Date Stop Date Source Ex-smoker 2022-02-11 00:00:00 2022-02-11 00:00:00 Universi ty of [facility] Medications Ordered Filled Start Stop Current Ordering Indication Dosage Frequency Signature Comments Components Source Medication Medication Date Date Medication? Clinician (SIG) Name Name potassium 2021-05- No 10meq 10 mEq, IV Univers chloride in 07-11 Piggyback, i ty of water 10 20:00: 22:00 ONCE, 1 [place] mEq/100 mL 00 :00 dose, On Medic al RTU 10 mEq [facility] 05/10/22 at 1400, Administer over 60 Minutes, 100 mL magnesium 2021-05 No 800mg 800 mg, Uni vers oxide 07-11 Oral, ity of (MAG-OX 20:00: 19:37 ONCE, 1 [place] 400) tablet 00 :00 dose, On Medi porfirio 800 mg [facility] 05/10/22 at 1400, Routine KCL 2021-05- No 40meq 40 mEq, Univers (KLOR-CON 07-11 Oral, ity of M20) tablet 19:15: 19:37 ONCE, 1 [place] 40 mEq 00 :00 dose, On Medical [facility] 05/10/22 at 1315, JOE hydralAZINE 2021-05- No 10mg 10 mg, Uni vers (APRESOLINE 07-11 Slow IV ity of ) injection 18:45: 18:42 [place] 10 mg 00 :00 ONCE, 1 Medical dose, On [facility] 05/10/22 at 1245, JOE NaCl 0.9% 2021-05- No 1000mL at 999 Uni vers (NS) bolus 07-11 mL/hr, ity of infusion 17:45: 20:00 1,000 mL, [place] 1,000 mL 00 :00 IV Medical Infusion, Branch ONCE, 1 dose, On [facility] 05/10/22 at 1145, JOE cefpodoxime 2021-05- Yes [id number] 100mg Take 1 Univers 100 mg 2-17 12-25 tablet by ity of tablet 00:00: 05:59 mouth in [place] 00 :00 the [facility] Branch and 1 tablet in the evening. Do all this for 7 days. cefpodoxime 2021-05- Yes [id number] 100mg Take 1 Univers 100 mg 2-17 12-25 tablet by ity of tablet 00:00: 05:59 mouth in [place] 00 :00 [facility] morning Branch and 1 tablet in the evening. Do all this for 7 days. cefpodoxime 2021-05- Yes [id number] 100mg Take 1 Univers 100 mg 2-17 12-25 tablet by ity of tablet 00:00: 05:59 mouth in [place] 00 :00 the Medical [...] Infusion, Medical ONCE, 1 Branch dose, On [facility] 05/06/22 at 1800, JOE ketorolac 2021-05 No 15mg 15 mg, Unive rs (TORADOL) 2-15 12-15 Slow IV ity of injection 22:00: 22:19 Push, [place] 15 mg 00 :00 ONCE, 1 Medical dose, On Branch [facility] 05/06/22 at 1600, JOE NaCl 0.9% 2021-05- No 1000mL at 999 Uni vers (NS) bolus 2-15 12-15 mL/hr, ity of infusion 22:00: 23:41 1,000 mL, [place] 1,000 mL 00 :00 IV Medical Infusion, Branch ONCE, 1 dose, On [facility] 05/06/22 at 1600, JOE ondansetron 2021-05- No 8mg 8 mg, Slow Univers (ZOFRAN 2-15 12-15 IV Push, ity of (PF)) 21:15: 22:19 ONCE, 1 [place] injection 8 00 :00 dose, On Medi porfirio mg [place] 05/06/22 at 1515, JOE ondansetron 2021-05 Yes [id number] 1-2 U nivers 4 mg tablet 2-15 tablets ity o f 00:00: every 8 [place] 00 hours as Medical needed for Branch nausea benzonatate 2021-05 Yes [id number] 200mg Take 1 Univers 200 mg 2-15 capsule by ity of capsule 00:00: mouth 3 [place] 00 (three) Medical times Branch daily as needed for Cough. albuterol 2021-05 Yes [id number] 2{puff} Inhale 2 Univers 90 2-15 Puffs ity of mcg/actuati 00:00: every 4 [place] on inhaler 00 (four) Medical hours as Branch needed for Wheezing or Shortness of Breath. butalbital- 2021-05 Yes [id number] 1{tbl} Take 1 Univers acetaminoph 2-15 tablet by ity of en-caff 00:00: mouth [place] 50-325-40 00 every 4 Medical mg tablet (four) Branch hours as needed (headache) . ondansetron 2021-05 Yes [id number] 1-2 U nivers 4 mg tablet 2-15 tablets ity o f 00:00: every 8 [place] 00 hours as Medical needed for Branch nausea benzonatate 2021-05 Yes [id number] 200mg Take 1 Univers 200 mg 2-15 capsule by ity of capsule 00:00: mouth 3 [place] 00 (three) Medical times Branch daily as needed for Cough. albuterol 2021-05 Yes [id number] 2{puff} Inhale 2 Univers 90 2-15 Puffs ity of mcg/actuati 00:00: every 4 [place] as on inhaler 00 (four) Medical hours as Branch needed for Wheezing or Shortness of Breath. butalbital- 2021-05 Yes [id number] 1{tbl} Take 1 Univers acetaminoph 2-15 tablet by ity of en-caff 00:00: mouth [place] 50-325-40 00 every 4 Medical mg tablet (four) Branch hours as needed (headache) . ondansetron 2021-05 Yes [id number] 1-2 U nivers 4 mg tablet 2-15 tablets ity o f 00:00: every 8 [place] 00 hours as Medical needed for Branch nausea benzonatate 2021-05 Yes [id number] 200mg Take 1 Univers 200 mg 2-15 capsule by ity of capsule 00:00: mouth 3 [place] 00 (three) Medical times Branch daily as needed for Cough. albuterol 2021-05 Yes [id number] 2{puff} Inhale 2 Univers 90 2-15 Puffs ity of mcg/actuati 00:00: every 4 [place] on inhaler 00 (four) Medical hours as Branch needed for Wheezing or Shortness of Breath. butalbital- 2021-05 Yes [id number] 1{tbl} Take 1 Univers acetaminoph 2-15 tablet by ity of en-caff 00:00: mouth [place] 50-325-40 00 every 4 Medical mg tablet (four) Branch hours as needed (headache) . ondansetron 2021-05 Yes [id number] 1-2 U nivers 4 mg tablet 2-15 tablets ity o f 00:00: every 8 [place] 00 hours as Medical needed for Branch nausea benzonatate 2021-05 Yes [id number] 200mg Take 1 Univers 200 mg 2-15 capsule by ity of capsule 00:00: mouth 3 [place] 00 (three) Medical times Branch daily as needed for Cough. albuterol 2021-05 Yes [id number] 2{puff} Inhale 2 Univers 90 2-15 Puffs ity of mcg/actuati 00:00: every 4 [place] on inhaler 00 (four) Medical hours as Branch needed for Wheezing or Shortness of Breath. butalbital- 2021-05 Yes [id number] 1{tbl} Take 1 Univers acetaminoph 2-15 tablet by ity of en-caff 00:00: mouth [place] 50-325-40 00 every 4 Medical mg tablet (four) Branch hours as needed (headache) . ondansetron 2021-05 Yes [id number] 1-2 U nivers 4 mg tablet 2-15 tablets ity o f 00:00: every 8 [place] 00 hours as Medical needed for Branch nausea benzonatate 2021-05 Yes [id number] 200mg Take 1 Univers 200 mg 2-15 capsule by ity of capsule 00:00: mouth 3 [place] 00 (three) Medical times Branch daily as needed for Cough. albuterol 2021-05 Yes [id number] 2{puff} Inhale 2 Univers 90 2-15 Puffs ity of mcg/actuati 00:00: every 4 [place] on inhaler 00 (four) Medical hours as Branch needed for Wheezing or Shortness of Breath. butalbital- 2021-05 Yes [id number] 1{tbl} Take 1 Univers acetaminoph 2-15 tablet by ity of en-caff 00:00: mouth [place] 50-325-40 00 every 4 Medical mg tablet (four) Branch hours as needed (headache) . ondansetron 2021-05 Yes [id number] 1-2 U nivers 4 mg tablet 2-15 tablets ity o f 00:00: every 8 [place] 00 hours as Medical needed for Branch nausea benzonatate 2021-05 Yes [id number] 200mg Take 1 Univers 200 mg 2-15 capsule by ity of capsule 00:00: mouth 3 [place] 00 (three) Medical times Branch daily as needed for Cough. albuterol 2021-05 Yes [id number] 2{puff} Inhale 2 Univers 90 2-15 Puffs ity of mcg/actuati 00:00: every 4 [place] on inhaler 00 (four) Medical hours as Branch needed for Wheezing or Shortness of Breath. butalbital- 2021-05 Yes [id number] 1{tbl} Take 1 Univers acetaminoph 2-15 tablet by ity of en-caff 00:00: mouth [place] 50-325-40 00 every 4 Medical mg tablet (four) Branch hours as needed (headache) . nirmatrelvi 2021-05- No [id number] 2{tbl} Take 2 Univers r-ritonavir 2-15 12-21 tablets by i ty of (PAXLOVID, 00:00: 05:59 mouth in [place] EUA,) 300 00 :00 the Medical mg (150 mg morning Branch x 2)-100 mg and 2 tablet tablets in the evening. Do all this for 5 days. nirmatrelvi 2021-05- No [id number] 2{tbl} Take 2 Univers r-ritonavir 2-15 12-21 tablets by i ty of (PAXLOVID, 00:00: 05:59 mouth in [place] EUA,) 300 00 :00 the Medical mg (150 mg morning Branch x 2)-100 mg and 2 tablet tablets in the evening. Do all this for 5 days. nirmatrelvi 2021-05- No [id number] 2{tbl} Take 2 Univers r-ritonavir 2-15 12-21 tablets by i ty of (PAXLOVID, 00:00: 05:59 mouth in [place] EUA,) 300 00 :00 the Medical mg (150 mg morning Branch x 2)-100 mg and 2 tablet tablets in the evening. Do all this for 5 days. nirmatrelvi 2021-05- No [id number] 2{tbl} Take 2 Univers r-ritonavir 2-15 - [...] 04/22/22 at 1645, Routine amoxicillin 2021-05 Yes [id number] 1{tbl} Take 1 Univers -clavulanat 2- 641001 tablet by i ty of e 875-125 00:00: mouth [place] mg per 00 every 12 Medical tablet (twelve) Branch hours. ondansetron 2021-05 Yes [id number] 4mg Take 1 Univers 4 mg 2- [id number] tablet by ity of disintegrat 00:00: mouth [place] ing tablet 00 every 8 Medica l (eight) Branch hours as needed for Nausea and Vomiting (N/V). amoxicillin 2021-05 Yes [id number] 1{tbl} Take 1 Univers -clavulanat 2- [id number] tablet by i ty of e 875-125 00:00: mouth [place] mg per 00 every 12 Medical tablet (twelve) Branch hours. ondansetron 2021-05 Yes [id number] 4mg Take 1 Univers 4 mg 2-01 [id number] tablet by ity of disintegrat 00:00: mouth [place] ing tablet 00 every 8 Medica l (eight) Branch hours as needed for Nausea and Vomiting (N/V). amoxicillin 2021-05 Yes [id number] 1{tbl} Take 1 Univers -clavulanat 2-01 [id number] tablet by i ty of e 875-125 00:00: mouth [place] mg per 00 every 12 Medical tablet (twelve) Branch hours. ondansetron 2021-05 Yes [id number] 4mg Take 1 Univers 4 mg 2-01 [id number] tablet by ity of disintegrat 00:00: mouth [place] ing tablet 00 every 8 Medica l (eight) Branch hours as needed for Nausea and Vomiting (N/V). amoxicillin 2021-05 Yes [id number] 1{tbl} Take 1 Univers -clavulanat 2-01 [id number] tablet by i ty of e 875-125 00:00: mouth [place] mg per 00 every 12 Medical tablet (twelve) Branch hours. ondansetron 2021-05 Yes [id number] 4mg Take 1 Univers 4 mg 2-01 [id number] tablet by ity of disintegrat 00:00: mouth [place] ing tablet 00 every 8 Medica l (eight) Branch hours as needed for Nausea and Vomiting (N/V). amoxicillin 2021-05 Yes [id number] 1{tbl} Take 1 Univers -clavulanat 2-01 [id number] tablet by i ty of e 875-125 00:00: mouth [place] mg per 00 every 12 Medical tablet (twelve) Branch hours. ondansetron 2021-05 Yes [id number] 4mg Take 1 Univers 4 mg 2- [id number] tablet by ity of disintegrat 00:00: mouth [place] ing tablet 00 every 8 Medica l (eight) Branch hours as needed for Nausea and Vomiting (N/V). amoxicillin 2021-05 Yes [id number] 1{tbl} Take 1 Univers -clavulanat 2-01 [id number] tablet by i ty of e 875-125 00:00: mouth [place] mg per 00 every 12 Medical tablet (twelve) Branch hours. ondansetron 2021-05 Yes [id number] 4mg Take 1 Univers 4 mg 2-01 [id number] tablet by ity of disintegrat 00:00: mouth [place] ing tablet 00 every 8 Medica l (eight) Branch hours as needed for Nausea and Vomiting (N/V). amoxicillin 2021-05 Yes [id number] 1{tbl} Take 1 Univers -clavulanat 2-01 [id number] tablet by i ty of e 875-125 00:00: mouth [place] mg per 00 every 12 Medical tablet (twelve) Branch hours. ondansetron 2021-05 Yes [id number] 4mg Take 1 Univers 4 mg 2-01 [id number] tablet by ity of disintegrat 00:00: mouth [place] ing tablet 00 every 8 Medica l (eight) Branch hours as needed for Nausea and Vomiting (N/V). amoxicillin 2021-05 Yes [id number] 1{tbl} Take 1 Univers -clavulanat 06-23 [id number] tablet by i ty of e 875-125 00:00: mouth [place] mg per 00 every 12 Medical tablet (twelve) Branch hours. ondansetron 2021-05 Yes [id number] 4mg Take 1 Univers 4 mg 06-23 [id number] tablet by ity of disintegrat 00:00: mouth [place] ing tablet 00 every 8 Medica l (eight) Branch hours as needed for Nausea and Vomiting (N/V). zoster 2021-05- No [id number] .5mL 0.5 mL by Univers vaccine, 0-14 10-15 9104 Intramuscu ity of recombinant 00:00: 04:59 lar route [place] (SHINGRIX, 00 :00 once now Medic al PF,) for 1 Branch injection dose. And repeat in 2-6 months zoster 2021-05- No [id number] .5mL 0.5 mL by Univers vaccine, 0-14 10-15 9104 Intramuscu ity of recombinant 00:00: 04:59 lar route [place] (SHINGRIX, 00 :00 once now Medic al PF,) for 1 Branch injection dose. And repeat in 2-6 months zoster 2021-05- No [id number] .5mL 0.5 mL by Univers vaccine, 0-14 [...] o f 1 mg tablet 19:28: at [place] [address] bedtime. Medical Branch traZODone 2021-0 Yes 50mg Take 50 mg Un matt 100 mg 9-27 by mouth ity of tablet 19:28: at [place] [address] bedtime. Medical Branch hydralAZINE 2021-0 Yes 25mg [...] 100 mg 04 (two) Medical tablet times [place] daily. amLODIPine 2021-0 Yes 10mg Take 10 mg U nivers (NORVASC) 9-27 by mouth ity of 10 mg 19:28: daily. [place] tablet 04 Medical Branch clonazePAM 2021-0 Yes 1mg Take 1 mg Un matt (KLONOPIN) 9-27 by mouth ity o f 1 mg tablet 19:28: at [place] [address] bedtime. Medical Branch traZODone 2021-0 Yes 50mg Take 50 mg Un matt 100 mg 9-27 by mouth ity of tablet 19:28: at [place] [address] bedtime. Medical Branch hydralAZINE 2021-0 Yes 25mg [...] o f 1 mg tablet 19:28: at [place] [address] bedtime. Medical Branch traZODone 2021-0 Yes 50mg Take 50 mg Un matt 100 mg 9-27 by mouth ity of tablet 19:28: at [place] [address] bedtime. Medical Branch hydralAZINE 2021-0 Yes 25mg [...] o f 1 mg tablet 19:28: at [place] [address] bedtime. Medical Branch traZODone 2021-0 Yes 50mg Take 50 mg Un matt 100 mg 9-27 by mouth ity of tablet 19:28: at [place] [address] bedtime. Medical Branch hydralAZINE 2021-0 Yes 25mg [...] o f 1 mg tablet 19:28: at [place] [address] bedtime. Medical Branch traZODone 2021-0 Yes 50mg Take 50 mg Un matt 100 mg 9- by mouth ity of tablet 19:28: at [place] [address] bedtime. Medical Branch hydralAZINE 2021-0 Yes 25mg [...] o f 1 mg tablet 19:28: at [place] [address] bedtime. Medical Branch traZODone 2022-0 Yes 50mg Take 50 mg Un matt 100 mg 9-27 by mouth ity of tablet 19:28: at [place] [address] bedtime. Medical Branch hydralAZINE 2-0 Yes 25mg [...] o f 1 mg tablet 19:28: at [place] [address] bedtime. Medical Branch traZODone 2-0 Yes 50mg Take 50 mg Un matt 100 mg 9-27 by mouth ity of tablet 19:28: at [place] [address] bedtime. Medical Branch hydralAZINE 2021-0 Yes 25mg [...] o f 1 mg tablet 19:28: at [place] [address] bedtime. Medical Branch traZODone 2022-0 Yes 50mg Take 50 mg Un matt 100 mg 9-27 by mouth ity of tablet 19:28: at [place] [address] bedtime. Medical Branch hydralAZINE 2-0 Yes 25mg [...] o f 1 mg tablet 19:28: at [place] [address] bedtime. Medical Branch traZODone 2-0 Yes 50mg Take 50 mg Un matt 100 mg 9-27 by mouth ity of tablet 19:28: at [place] [address] bedtime. Medical Branch hydralAZINE 2-0 Yes 25mg [...] o f 1 mg tablet 19:28: at [place] [address] bedtime. Medical Branch traZODone 2021-0 Yes 50mg Take 50 mg Un matt 100 mg 9-27 by mouth ity of tablet 19:28: at [place] [address] bedtime. Medical Branch hydralAZINE 2021-0 Yes 25mg [...] o f 1 mg tablet 19:28: at [place] [address] bedtime. Medical Branch traZODone 2021-0 Yes 50mg Take 50 mg Un matt 100 mg 9-27 by mouth ity of tablet 19:28: at [place] [address] bedtime. Medical Branch hydralAZINE 2021-0 Yes 25mg [...] o f 1 mg tablet 19:28: at [place] [address] bedtime. Medical Branch traZODone 2-0 Yes 50mg Take 50 mg Un matt 100 mg 9-27 by mouth ity of tablet 19:28: at [place] [address] bedtime. Medical Branch hydralAZINE 2-0 Yes 25mg [...] o f 1 mg tablet 19:28: at [place] [address] bedtime. Medical Branch traZODone 2021-0 Yes 50mg Take 50 mg Un matt 100 mg 9-27 by mouth ity of tablet 19:28: at [place] [address] bedtime. Medical Branch hydralAZINE 2021-0 Yes 25mg [...] o f 1 mg tablet 19:28: at [place] [address] bedtime. Medical Branch traZODone 2021-0 Yes 50mg Take 50 mg Un matt 100 mg 9-27 by mouth ity of tablet 19:28: at [place] [address] bedtime. Medical Branch hydralAZINE 2021-0 Yes 25mg [...] mouth ity of 10 mg 19:28: daily. [place] tablet 04 Medical Branch clonazePAM 2021-0 Yes 1mg Take 1 mg Un matt (KLONOPIN) 9-27 by mouth ity o f 1 mg tablet 19:28: at [place] [address] bedtime. Medical Branch traZODone 2021-0 Yes 50mg Take 50 mg Un matt 100 mg 9-27 by mouth ity of tablet 19:28: at [place] [address] bedtime. Medical Branch hydralAZINE 2021-0 Yes 25mg [...] o f 1 mg tablet 19:28: at [place] [address] bedtime. Medical Branch traZODone Yes 50mg Take 50 mg Un matt 100 mg 02-16 by mouth ity of tablet 19:28: at [place] [address] bedtime. Medical Branch cefpodoxime 2021- No [id number] 200mg Take 1 Univers 200 mg 02-16 tablet by ity of tablet 00:00: 04:59 mouth in [place] 00 :00 the Medical morning Branch and 1 tablet in the evening. Do all this for 3 days. cefpodoxime 2021- No [id number] 200mg Take 1 Univers 200 mg 02-16 tablet by ity of tablet 00:00: 04:59 mouth in [place] 00 :00 the Medical morning Branch and 1 tablet in the evening. Do all this for 3 days. haloperidol 2021- No 2mg 2 mg, Slow Univers lactate 02-15 IV Push, ity of (HALDOL) 09:00: 09:12 ONCE, 1 [place] injection 2 00 :00 dose, On Medi porfirio mg Mon Branch 02/15/22 at 0400, Routine hydroCHLORO Yes 25mg 25 mg, Univ ers thiazide 9-25 Oral, ity of (ESIDRIX) 14:00: DAILY, [place] capsule 25 00 First dose Med ical mg on Sun Branch 02/14/22 at 0900, Until Discontinu ed, Routine butalbital- Yes 1{tbl} 1 tablet, Univers acetaminoph - Oral, ity of en-caff 18:46: Q6HPRN, [place] (ESGIC) 06 Starting Medical 50-325-40 on Sat [...] on [place] cream 00 [facility] Medical 02/11/22 at Branch 1400, Until Discontinu ed, Routine busPIRone 202-0 Yes 30mg 30 mg, Univer s (BUSPAR) 02-11 Oral, BID, ity o f tablet 30 18:00: First dose [place] mg 00 on [facility] Medical 02/11/22 at Branch 1300, Until Discontinu ed, Routine raltegravir 2021-0 Yes 400mg 400 mg, Un matt (ISENTRESS) 02-11 Oral, BID, it y of tablet 400 18:00: First dose [place] mg 00 on [facility] Medical 02/11/22 at Branch 1300, Until Discontinu ed, JOE metoprolol 2021-0 Yes 100mg 100 mg, Uni vers tartrate 02-11 Oral, BID, ity o f (LOPRESSOR) 18:00: First dose [place] tablet 100 00 on [facility] mg 02/11/22 at Branch 1300, Until Discontinu ed, Routine lisinopriL 2021-0 Yes 40mg 40 mg, Unive rs (PRINIVIL,Z 02-11 Oral, BID, it y of ESTRIL) 18:00: First dose [place] tablet 40 00 on [facility] mg 02/11/22 at Branch 1300, Until Discontinu ed, Routine emtricitabi 2021-0 Yes 1{tbl} 1 tablet[facility] 02-11 Oral, ity of r alafen 18:00: DAILY, [place] (DESCOVY) 00 First dose Medi porfirio tablet 1 on [facility] tablet 02/11/22 at 1300, Until Discontinu ed, Routine ipratropium 2021-0 Yes .5mg 0.5 mg, Uni vers (ATROVENT) 02-11 Inhalation ity of 0.02 % 17:57: , MERY, [place] nebulizer 10 Starting Medica l solution on [facility] Branch 0.5 mg 02/11/22 at [...] last modificati on) on [facility] 02/11/22 at 1230, Until Discontinu ed, Routine HYDROcodone 2021- No 1{tbl} 1 tablet, Univers -acetaminop 02-11 Oral, ity of hen (NORCO 14:11: 17:37 Q6HPRN, [place] 5) 5-325 mg 03 :24 Starting Medi porfirio tablet 1 on [facility] Branch tablet 02/11/22 at 0911, Until Tue02/12/22 at 1237, Routine, Pain (scale 7-10) melatonin Yes 3mg 3 mg, Univers (MELATIN) 02-11 Oral, ity of tablet 3 mg 14:08: QHSPRN, [place] 17 Starting Medical on [facility] Branch 02/11/22 at 0908, Until Discontinu ed, Routine, Insomnia acetaminoph 2021- No 1{tbl} 1 tablet, Univers en-codeine 02-11 Oral, ity of (TYLENOL 14:06: 17:37 Q6HPN, [place] #3) 300-30 19 :24 Starting Medic al mg tablet 1 on [facility] Branch tablet 02/11/22 at 0906, Until Tue02/12/22 at 1237, Routine, Pain (scale 4-6) sennosides- Yes 1{tbl} 1 tablet, [facility] docusate 02-11 Oral, ity of sodium 14:06: QDAILYPRN, [place] (SENOKOT-S) 09 Starting Medi porfirio 8.6-50 mg on [facility] per tablet 02/11/22 at [...] ity of ) 25 mg 09:10: daily. [place] tablet 54 [facility] amLODIPine 0 Yes 10mg Take 10 mg U nivers (NORVASC) 02-11 by mouth ity of 10 mg 09:10: daily. [place] tablet 54 [facility] piperacilli 2021- No 3.375g [...] of therapy: 72 hours iopamidol 2- No [id number] 60mL 60 mL, Univers (ISOVUE 02-11 Intravenou [...] On Medi porfirio mg [facility] 02/11/22 at 0045, JOE acetaminoph 2021- No 975mg 975 mg, U nivers en 02-11 Oral, ity of (TYLENOL) 05:15: 04:19 ONCE, 1 [place] 975 00 :00 dose, On Medic al mg [facility] 02/11/22 at 0015, JOE emtricitabi 0 Yes [id number] Take one [facility] ne-tenofovi 9-12 po daily ity of r alafen 00:00: [place] (DESCOVY) 00 Medical tablet Branch emtricitabi 0 Yes [id number] Take one [facility] ne-tenofovi 9-12 po daily ity of r alafen 00:00: [place] (DESCOVY) Medical tablet Branch emtricitabi 0 Yes [id number] Take one [facility] ne-tenofovi 9-12 po daily ity of r alafen 00:00: [place] (DESCOVY) 00 Medical tablet Branch emtricitabi 0 Yes [id number] Take one [facility] ne-tenofovi 9-12 po daily ity of r alafen 00:00: [place] (DESCOVY) 00 Medical tablet Branch emtricitabi Yes [id number] Take one [facility] ne-tenofovi 9-12 po daily ity of r alafen 00:00: [place] (DESCOVY) 00 Medical tablet Branch emtricita Yes [id number] Take one [facility] ne-tenofovi 9-12 po daily ity of r alafen 00:00: [place] (DESCOVY) 00 Medical tablet Branch emtricita Yes [id number] Take one [facility] ne-tenofovi 9-12 po daily ity of r alafen 00:00: [place] (DESCOVY) 00 Medical tablet Branch emtricita Yes [id number] Take one [facility] ne-tenofovi 9-12 po daily ity of r alafen 00:00: [place] (DESCOVY) 00 Medical tablet Branch emtricita Yes [id number] Take one [facility] ne-tenofovi 9-12 po daily ity of r alafen 00:00: [place] (DESCOVY) 00 Medical tablet Branch [facility] [id number] Take one [facility] ne-tenofovi 9-12 po daily ity of r alafen 00:00: [place] (DESCOVY) 00 Medical tablet [facility] [id number] Take one [facility] ne-tenofovi 9-12 po daily ity of r alafen 00:00: [place] (DESCOVY) 00 Medical tablet Branch emtricita Yes [id number] Take one [facility] ne-tenofovi 9-12 po daily ity of r alafen 00:00: [place] (DESCOVY) 00 Medical tablet Branch emtricita Yes [id number] Take one [facility] ne-tenofovi 9-12 po daily ity of r alafen 00:00: [place] (DESCOVY) 00 Medical tablet Branch emtricita Yes [id number] Take one [facility] ne-tenofovi 9-12 po daily ity of r alafen 00:00: [place] (DESCOVY) 00 Medical tablet Branch emtricita Yes [id number] Take one [facility] ne-tenofovi 9-12 po daily ity of r alafen 00:00: [place] (DESCOVY) 00 Medical tablet Branch emtricitabi 2021-0 Yes [id number] Take one [facility] ne-tenofovi 9-12 po daily ity of r alafen 00:00: [place] (DESCOVY) Medical tablet Branch emtricitabi 2021-0 Yes [id number] Take one [facility] ne-tenofovi 9-12 po daily ity of r alafen 00:00: [place] (DESCOVY) Medical tablet Branch naproxen 2021-0 Yes [id number] 500mg Take 1 U nivers (NAPROSYN) 7-24 tablet by ity of 500 mg 00:00: mouth in [place] tablet 00 the Medical morning Branch and 1 tablet in the evening. Take with meals. methocarbam 2021-0 Yes [id number] 500mg Take 1 [facility] oL 500 mg 7-24 tablet by ity o f tablet 00:00: mouth 4 [place] [address] [facility] [place] daily. naproxen 2021-0 Yes [id number] 500mg Take 1 U nivers (NAPROSYN) 7-24 tablet by ity of 500 mg 00:00: mouth in [place] tablet 00 the Medical morning Branch and 1 tablet in the evening. Take with meals. methocarbam 2021-0 Yes [id number] 500mg Take 1 [facility] oL 500 mg 7-24 tablet by ity o f tablet 00:00: mouth 4 [place] ([facility] times [place] daily. naproxen 2021-0 Yes [id number] 500mg Take 1 U nivers (NAPROSYN) 7-24 tablet by ity of 500 mg 00:00: mouth in [place] tablet 00 the Medical morning Branch and 1 tablet in the evening. Take with meals. methocarbam 2021-0 Yes [id number] 500mg Take 1 [facility] oL 500 mg 7-24 tablet by ity o f tablet 00:00: mouth 4 [place] ([facility] times [place] daily. naproxen 2021-0 2022- No [id number] 500mg Take 1 [facility] (NAPROSYN) 7-24 10-14 tablet by ity of 500 mg 00:00: 00:00 mouth in [place] tablet 00 :00 the Medical morning Branch and 1 tablet in the evening. Take with meals. methocarbam 2021-0 2022- No [id number] 500mg Take 1 [facility] oL 500 mg 7-24 10-14 tablet by ity of tablet 00:00: 00:00 mouth 4 [place] 00 :00 (four) Medical times Branch daily. naproxen 2021- No [id number] 500mg Take 1 [facility] (NAPROSYN) 12-13 tablet by ity of 500 mg 00:00: 00:00 mouth in [place] tablet 00 :00 the Medical morning Branch and 1 tablet in the evening. Take with meals. methocarbam 2021- No [id number] 500mg Take 1 [facility] oL 500 mg [...] ty of mg tablet 09:11: 00:00 (two) [place] 35 :00 times Medical daily. Branch traZODONE 2021- No Take by [facility] ers (DESYREL) 11-20 mouth at ity o f 10 mg/mL 09:10: 00:00 [place]time. [place] oral 28 :00 Medical suspension Branch hydralAZINE Yes 25mg Take 25 mg [facility] (APRESOLINE 11-20 by mouth ity of ) 25 mg 08:47: daily. [place] tablet 47 Medical Branch cephALEXin 2021- No [id number] 500mg Take 1 [facility] (KEFLEX) 10-24 capsule [...] Indication s: acute pain buPROPion 0 Yes [id number] 150mg Take 1 U nivers XL 4-12 tablet by ity of (WELLBUTRIN 00:00: mouth [place] XL) 150 mg 00 daily. Medical 24 hr Branch tablet busPIRone 2021-0 Yes [id number] 30mg Take 1 Un matt 30 mg 4-12 tablet by ity of tablet 00:00: mouth 2 [place] 00 (two) Medical times Branch daily. SERTraline 2021-0 Yes [id number] 200mg Take 2 [facility] 100 mg 4-12 tablets by ity of tablet 00:00: mouth [place] 00 daily. Medical Branch buPROPion 0 Yes [id number] 150mg Take 1 U nivers XL 4-12 tablet by ity of (WELLBUTRIN 00:00: mouth [place] XL) 150 mg 00 daily. Medical 24 hr Branch tablet busPIRone 2021-0 Yes [id number] 30mg Take 1 Un matt 30 mg 4-12 tablet by ity of tablet 00:00: mouth 2 [place] 00 (two) Medical times Branch daily. SERTraline 2021-0 Yes [id number] 200mg Take 2 [facility] 100 mg 4-12 tablets by ity of tablet 00:00: mouth [place] 00 daily. Medical Branch buPROPion 2021-0 Yes [id number] 150mg Take 1 U nivers XL 4-12 tablet by ity of (WELLBUTRIN 00:00: mouth [place] XL) 150 mg 00 daily. Medical 24 hr Branch tablet busPIRone 2021-0 Yes [id number] 30mg Take 1 Un matt 30 mg 4-12 tablet by ity of tablet 00:00: mouth 2 [place] 00 (two) Medical times Branch daily. SERTraline 2021-0 Yes [id number] 200mg Take 2 [facility] 100 mg 4-12 tablets by ity of tablet 00:00: mouth [place] 00 daily. Medical Branch buPROPion 2021-0 Yes [id number] 150mg Take 1 U nivers XL 4-12 tablet by ity of (WELLBUTRIN 00:00: mouth [place] XL) 150 mg 00 daily. Medical 24 hr Branch tablet busPIRone 2021-0 Yes [id number] 30mg Take 1 Un matt 30 mg 4-12 tablet by ity of tablet 00:00: mouth 2 [place] 00 (two) Medical times Branch daily. SERTraline 0 Yes [id number] 200mg Take 2 [facility] 100 mg 4-12 tablets by ity of tablet 00:00: mouth [place] 00 daily. Medical Branch buPROPion 0 Yes [id number] 150mg Take 1 U nivers XL 4-12 tablet by ity of (WELLBUTRIN 00:00: mouth [place] XL) 150 mg 00 daily. Medical 24 hr Branch tablet busPIRone 2021-0 Yes [id number] 30mg Take 1 Un matt 30 mg 4-12 tablet by ity of tablet 00:00: mouth 2 (two) Medical times Branch daily. SERTraline 0 Yes [id number] 200mg Take 2 [facility] 100 mg 4-12 tablets by ity of tablet 00:00: mouth [place] 00 daily. Medical Branch buPROPion 0 Yes [id number] 150mg Take 1 U nivers XL 4-12 tablet by ity of (WELLBUTRIN 00:00: mouth [place] XL) 150 mg 00 daily. Medical 24 hr Branch tablet busPIRone 2021-0 Yes [id number] 30mg Take 1 Un matt 30 mg 4-12 tablet by ity of tablet 00:00: mouth 2 00 (two) Medical times Branch daily. SERTraline 2021-0 Yes [id number] 200mg Take 2 [facility] 100 mg 4-12 tablets by ity of tablet 00:00: mouth [place] 00 daily. Medical Branch buPROPion 2021-0 Yes [id number] 150mg Take 1 U nivers XL 4-12 tablet by ity of (WELLBUTRIN 00:00: mouth [place] XL) 150 mg 00 daily. Medical 24 hr Branch tablet busPIRone 2021-0 Yes [id number] 30mg Take 1 Un matt 30 mg 4-12 tablet by ity of tablet 00:00: mouth 2 00 (two) Medical times Branch daily. SERTraline 2021-0 Yes [id number] 200mg Take 2 [facility] 100 mg 4-12 tablets by ity of tablet 00:00: mouth [place] 00 daily. Medical Branch buPROPion 2021-0 Yes [id number] 150mg Take 1 U nivers XL 4-12 tablet by ity of (WELLBUTRIN 00:00: mouth [place] XL) 150 mg 00 daily. Medical 24 hr Branch tablet busPIRone 2021-0 Yes [id number] 30mg Take 1 Un matt 30 mg 4-12 tablet by ity of tablet 00:00: mouth 2 [place] 00 (two) Medical times Branch daily. SERTraline 2021-0 Yes [id number] 200mg Take 2 [facility] 100 mg 4-12 tablets by ity of tablet 00:00: mouth [place] 00 daily. Medical Branch buPROPion 2021-0 Yes [id number] 150mg Take 1 U nivers XL 4-12 tablet by ity of (WELLBUTRIN 00:00: mouth [place] XL) 150 mg 00 daily. Medical 24 hr Branch tablet busPIRone 2021-0 Yes [id number] 30mg Take 1 Un matt 30 mg 4-12 tablet by ity of tablet 00:00: mouth 2 [place] (two) Medical times Branch daily. SERTraline 2021-0 Yes [id number] 200mg Take 2 [facility] 100 mg 4-12 tablets by ity of tablet 00:00: mouth [place] 00 daily. Medical Branch buPROPion 2021-0 Yes [id number] 150mg Take 1 U nivers XL 4-12 tablet by ity of (WELLBUTRIN 00:00: mouth [place] XL) 150 mg 00 daily. Medical 24 hr Branch tablet busPIRone 2021-0 Yes [id number] 30mg Take 1 Un matt 30 mg 4-12 tablet by ity of tablet 00:00: mouth 2 [place] 00 (two) Medical times Branch daily. SERTraline 2021-0 Yes [id number] 200mg Take 2 [facility] 100 mg 4-12 tablets by ity of tablet 00:00: mouth [place] 00 daily. Medical Branch buPROPion 2021-0 Yes [id number] 150mg Take 1 U nivers XL 4-12 tablet by ity of (WELLBUTRIN 00:00: mouth [place] XL) 150 mg 00 daily. Medical 24 hr Branch tablet busPIRone 2021-0 Yes [id number] 30mg Take 1 Un matt 30 mg 4-12 tablet by ity of tablet 00:00: mouth 2 [place] 00 (two) Medical times Branch daily. SERTraline 2021-0 Yes [id number] 200mg Take 2 [facility] 100 mg 4-12 tablets by ity of tablet 00:00: mouth [place] 00 daily. Medical Branch buPROPion 2021-0 Yes [id number] 150mg Take 1 U nivers XL 4-12 tablet by ity of (WELLBUTRIN 00:00: mouth [place] XL) 150 mg 00 daily. Medical 24 hr Branch tablet busPIRone 2021-0 Yes [id number] 30mg Take 1 Un matt 30 mg 4-12 tablet by ity of tablet 00:00: mouth 2 [place] 00 (two) Medical times Branch daily. SERTraline 2021-0 Yes [id number] 200mg Take 2 [facility] 100 mg 4-12 tablets by ity of tablet 00:00: mouth [place] 00 daily. Medical Branch buPROPion 2021-0 Yes [id number] 150mg Take 1 U nivers XL 4-12 tablet by ity of (WELLBUTRIN 00:00: mouth [place] XL) 150 mg 00 daily. Medical 24 hr Branch tablet busPIRone 2021-0 Yes [id number] 30mg Take 1 Un matt 30 mg 4-12 tablet by ity of tablet 00:00: mouth 2 00 (two) Medical times Branch daily. SERTraline 2021-0 Yes [id number] 200mg Take 2 [facility] 100 mg 4-12 tablets by ity of tablet 00:00: mouth [place] 00 daily. Medical Branch buPROPion 2021-0 Yes [id number] 150mg Take 1 U nivers XL 4-12 tablet by ity of (WELLBUTRIN 00:00: mouth [place] XL) 150 mg 00 daily. Medical 24 hr Branch tablet busPIRone 2021-0 Yes [id number] 30mg Take 1 Un matt 30 mg 4-12 tablet by ity of tablet 00:00: mouth 2 [place] 00 (two) Medical times Branch daily. SERTraline 2021-0 Yes [id number] 200mg Take 2 [facility] 100 mg 4-12 tablets by ity of tablet 00:00: mouth [place] 00 daily. Medical Branch buPROPion 2021-0 Yes [id number] 150mg Take 1 U nivers XL 4-12 tablet by ity of (WELLBUTRIN 00:00: mouth [place] XL) 150 mg 00 daily. Medical 24 hr Branch tablet busPIRone 2021-0 Yes [id number] 30mg Take 1 Un matt 30 mg 4-12 tablet by ity of tablet 00:00: mouth 2 [place] 00 (two) Medical times Branch daily. SERTraline 2021-0 Yes [id number] 200mg Take 2 [facility] 100 mg 4-12 tablets by ity of tablet 00:00: mouth [place] 00 daily. Medical Branch buPROPion 2021-0 Yes [id number] 150mg Take 1 U nivers XL 4-12 tablet by ity of (WELLBUTRIN 00:00: mouth [place] XL) 150 mg 00 daily. Medical 24 hr Branch tablet busPIRone 2021-0 Yes [id number] 30mg Take 1 Un matt 30 mg 4-12 tablet by ity of tablet 00:00: mouth 2 [place] 00 (two) Medical times Branch daily. SERTraline 0 Yes [id number] 200mg Take 2 [facility] 100 mg 4-12 tablets by ity of tablet 00:00: mouth [place] 00 daily. Medical Branch buPROPion 2021-0 Yes [id number] 150mg Take 1 U nivers XL 4-12 tablet by ity of (WELLBUTRIN 00:00: mouth [place] XL) 150 mg 00 daily. Medical 24 hr Branch tablet busPIRone 2021-0 Yes [id number] 30mg Take 1 Un matt 30 mg 4-12 tablet by ity of tablet 00:00: mouth 2 [place] 00 (two) Medical times Branch daily. SERTraline 2021-0 Yes [id number] 200mg Take 2 [facility] 100 mg 4-12 tablets by ity of tablet 00:00: mouth [place] 00 daily. Medical Branch buPROPion 2021-0 Yes [id number] 150mg Take 1 U nivers XL 4-12 tablet by ity of (WELLBUTRIN 00:00: mouth [place] XL) 150 mg 00 daily. Medical 24 hr Branch tablet busPIRone 2021-0 Yes [id number] 30mg Take 1 Un matt 30 mg 4-12 tablet by ity of tablet 00:00: mouth 2 [place] 00 (two) Medical times Branch daily. SERTraline 2021-0 Yes [id number] 200mg Take 2 [facility] 100 mg 4-12 tablets by ity of tablet 00:00: mouth [place] 00 daily. Medical Branch raltegravir 2022-0 Yes [id number] 400mg Take 1 [facility] (ISENTRESS) 3-28 tablet by ity of 400 mg 00:00: mouth 2 [place] tablet 00 (two) Medical times Branch daily. raltegravir 2-0 Yes [id number] 400mg Take 1 [facility] (ISENTRESS) 3-28 tablet by ity of 400 mg 00:00: mouth 2 [place] tablet 00 (two) Medical times Branch daily. raltegravir 2-0 Yes [id number] 400mg Take 1 [facility] (ISENTRESS) 3-28 tablet by ity of 400 mg 00:00: mouth 2 [place] tablet 00 (two) Medical times Branch daily. raltegravir 2021-0 Yes [id number] 400mg Take 1 [facility] (ISENTRESS) 3-28 tablet by ity of 400 mg 00:00: mouth 2 [place] tablet 00 (two) Medical times Branch daily. raltegravir 2021-0 Yes [id number] 400mg Take 1 [facility] (ISENTRESS) 3-28 tablet by ity of 400 mg 00:00: mouth 2 [place] tablet 00 (two) Medical times Branch daily. raltegravir 2021-0 Yes [id number] 400mg Take 1 [facility] (ISENTRESS) 3-28 tablet by ity of 400 mg 00:00: mouth 2 [place] tablet 00 (two) Medical times Branch daily. raltegravir 2021-0 Yes [id number] 400mg Take 1 [facility] (ISENTRESS) 3-28 tablet by ity of 400 mg 00:00: mouth 2 [place] tablet 00 (two) Medical times Branch daily. raltegravir 2-0 Yes [id number] 400mg Take 1 [facility] (ISENTRESS) 3-28 tablet by ity of 400 mg 00:00: mouth 2 [place] tablet 00 (two) Medical times Branch daily. raltegravir 2-0 Yes [id number] 400mg Take 1 [facility] (ISENTRESS) 3-28 tablet by ity of 400 mg 00:00: mouth 2 [place] tablet 00 (two) Medical times Branch daily. raltegravir 2-0 Yes [id number] 400mg Take 1 [facility] (ISENTRESS) 3-28 tablet by ity of 400 mg 00:00: mouth 2 [place] tablet 00 (two) Medical times Branch daily. raltegravir 2-0 Yes [id number] 400mg Take 1 [facility] (ISENTRESS) 3-28 tablet by ity of 400 mg 00:00: mouth 2 [place] tablet 00 (two) Medical times Branch daily. raltegravir 2021-0 Yes [id number] 400mg Take 1 [facility] (ISENTRESS) 3-28 tablet by ity of 400 mg 00:00: mouth 2 [place] tablet 00 (two) Medical times Branch daily. raltegravir 2021-0 Yes [id number] 400mg Take 1 [facility] (ISENTRESS) 3-28 tablet by ity of 400 mg 00:00: mouth 2 [place] tablet 00 (two) Medical times Branch daily. raltegravir 2021-0 Yes [id number] 400mg Take 1 [facility] (ISENTRESS) 3-28 tablet by ity of 400 mg 00:00: mouth 2 [place] tablet 00 (two) Medical times Branch daily. raltegravir 2021-0 Yes [id number] 400mg Take 1 [facility] (ISENTRESS) 3-28 tablet by ity of 400 mg 00:00: mouth 2 [place] tablet 00 (two) Medical times Branch daily. raltegravir 2021-0 Yes [id number] 400mg Take 1 [facility] (ISENTRESS) 3-28 tablet by ity of 400 mg 00:00: mouth 2 [place] tablet 00 (two) Medical times Branch daily. raltegravir 2021-0 Yes [id number] 400mg Take 1 [facility] (ISENTRESS) 3-28 tablet by ity of 400 mg 00:00: mouth 2 [place] tablet 00 (two) Medical times Branch daily. raltegravir 2021-0 Yes [id number] 400mg Take 1 [facility] (ISENTRESS) 3-28 tablet by ity of 400 mg 00:00: mouth 2 [place] tablet 00 (two) Medical times Branch daily. LORazepam 1 2021-0 2021- No [id number] 1mg Take 1 [facility] mg tablet 3-21 [...] times a tablet day. emtricitabi 202- No [id number] Take one [facility] ne-tenofovi -20 09-12 po daily ity of r alafen 00:00: 00:00 [place] (DESCOVY) 00 :00 Medical tablet Branch metoprolol Yes [id number] Take 1 [place] tartrate 7-26 tablet Health (Lopressor) 00:00: (100 mg 100 MG 00 total) by tablet mouth 2 (two) times a day AND 0.5 tablets (50 mg total) every night. metoprolol Yes [id number] Take 1 [place] tartrate 7-26 tablet Health [...] (affected area in groin) hydrALAZINE Yes 50mg Q.[id number] Take 50 mg [facility] (APRESOLINE 7-19 [id number] by mouth [facility] ) 50 MG [...] (affected area in groin) hydrALAZINE Yes 50mg Q.[id number] Take 50 mg [facility] (APRESOLINE 7-19 [id number] [facility] mouth [facility] ) 50 MG [...] (affected area in groin) hydrALAZINE Yes 50mg Q.[id number] Take 50 mg [facility] (APRESOLINE 7-19 [id number] mouth [facility] ) 50 MG [...] area in groin) hydrALAZINE 0 Yes 50mg Q.[id number] Take 50 mg [facility] (APRESOLINE 7-19 [id number] by mouth 3 [facility] ) 50 MG [...] area in groin) hydrALAZINE 0 Yes 50mg Q.[id number] Take 50 mg [facility] (APRESOLINE 7-19 [id number] mouth 3 [facility] ) 50 MG [...] (affected area in groin) hydrALAZINE Yes 50mg Q.[id number] Take 50 mg [facility] (APRESOLINE 7-19 [id number] mouth 3 [facility] ) 50 MG [...] (affected area in groin) hydrALAZINE Yes 50mg Q.[id number] Take 50 mg [facility] (APRESOLINE 7-19 [id number] [address] mouth [facility] ) 50 MG [...] area in groin) hydrALAZINE 0 Yes 50mg Q.[id number] Take 50 mg [facility] (APRESOLINE 7-[id number] mouth [facility] ) 50 MG [...] (affected area in groin) hydrALAZINE Yes 50mg Q.[id number] Take 50 mg [facility] (APRESOLINE 7-19 [id number] by mouth [facility] ) 50 MG [...] (affected area in groin) hydrALAZINE Yes 50mg Q.[id number] Take 50 mg [facility] (APRESOLINE 7-19 [id number] mouth 3 [facility] ) 50 MG [...] area in groin) hydrALAZINE 0 Yes 50mg Q.[id number] Take 50 mg [facility] (APRESOLINE 7-19 [id number] [facility] mouth 3 [facility] ) 50 MG [...] (affected area in groin) hydrALAZINE Yes 50mg Q.[id number] Take 50 mg [facility] (APRESOLINE 7-19 [id number] mouth 3 [facility] ) 50 MG [...] (affected area in groin) hydrALAZINE Yes 50mg Q.[id number] Take 50 mg [facility] (APRESOLINE 7-19 [id number] by mouth 3 [facility] ) 50 MG [...] (affected area in groin) hydrALAZINE Yes 50mg Q.[id number] Take 50 mg [facility] (APRESOLINE 7-19 [id number] by mouth 3 [facility] ) 50 MG [...] area in groin) hydrALAZINE 0 Yes 50mg Q.[id number] Take 50 mg [facility] (APRESOLINE 7-[id number] mouth [facility] [address] ) 50 MG [...] (affected area in groin) hydrALAZINE Yes 50mg Q.[id number] Take 50 mg [facility] (APRESOLINE 7-[id number] mouth [facility] ) 50 MG [...] area in groin) hydrALAZINE 0 Yes 50mg Q.[id number] Take 50 mg [facility] (APRESOLINE 7-19 [id number] mouth 3 [facility] ) 50 MG [...] area in groin) hydrALAZINE 0 Yes 50mg Q.[id number] Take 50 mg [facility] (APRESOLINE 7-19 [id number] by mouth [facility] ) 50 MG [...] (affected area in groin) hydrALAZINE Yes 50mg Q.[id number] Take 50 mg [facility] (APRESOLINE 7-19 [id number] mouth [facility] ) 50 MG [...] area in groin) hydrALAZINE 0 Yes 50mg Q.[id number] Take 50 mg [facility] (APRESOLINE 7-19 [id number] [address] mouth 3 [facility] ) 50 MG [...] area in groin) hydrALAZINE 2020-0 Yes 50mg Q.[id number] Take 50 mg [facility] (APRESOLINE 7-19 [id number] [address] mouth [facility] ) 50 MG [...] (affected area in groin) hydrALAZINE Yes 50mg Q.[id number] Take 50 mg [facility] (APRESOLINE 7-19 [id number] mouth 3 [address] ) 50 MG [...] (affected area in groin) hydrALAZINE Yes 50mg Q.[id number] Take 50 mg [facility] (APRESOLINE 7-[id number] mouth 3 [address] ) 50 MG [...] area in groin) hydrALAZINE 0 Yes 50mg Q.[id number] Take 50 mg [facility] (APRESOLINE 7-[id number] mouth [facility] [address] ) 50 MG [...] (affected area in groin) hydrALAZINE Yes 50mg Q.[id number] Take 50 mg [facility] (APRESOLINE 7-[id number] mouth [facility] [address] ) 50 MG [...] (affected area in groin) hydrALAZINE Yes 50mg Q.[id number] Take 50 mg [facility] (APRESOLINE 7-19 [id number] mouth 3 [facility] ) 50 MG [...] area in groin) hydrALAZINE 0 Yes 50mg Q.[id number] Take 50 mg [facility] (APRESOLINE 7-[id number] mouth [address] ) 50 MG [...] (affected area in groin) hydrALAZINE Yes 50mg Q.[id number] Take 50 mg [facility] (APRESOLINE 7-[id number] mouth 3 [address] ) 50 MG [...] (affected area in groin) hydrALAZINE Yes 50mg Q.[id number] Take 50 mg [facility] (APRESOLINE 7-19 [id number] mouth 3 [facility] ) 50 MG [...] area in groin) hydrALAZINE 0 Yes 50mg Q.[id number] Take 50 mg [facility] (APRESOLINE 7-[id number] mouth [facility] [address] ) 50 MG [...] area in groin) hydrALAZINE 0 Yes 50mg Q.[id number] Take 50 mg [facility] (APRESOLINE 7-[id number] mouth [facility] [address] ) 50 MG [...] (affected area in groin) hydrALAZINE Yes 50mg Q.[id number] Take 50 mg [facility] (APRESOLINE 7-[id number] mouth [facility] [address] ) 50 MG [...] (affected area in groin) hydrALAZINE Yes 50mg Q.[id number] Take 50 mg [facility] (APRESOLINE 7-19 [id number] mouth 3 [address] ) 50 MG [...] area in groin) hydrALAZINE 2021-0 Yes 50mg Q.[id number] Take 50 mg [facility] (APRESOLINE 7-[id number] mouth [facility] [address] ) 50 MG [...] (affected area in groin) hydrALAZINE Yes 50mg Q.[id number] Take 50 mg [facility] (APRESOLINE 7-[id number] mouth [address] ) 50 MG [...] (affected area in groin) hydrALAZINE Yes 50mg Q.[id number] Take 50 mg [facility] (APRESOLINE 7-[id number] mouth [address] ) 50 MG [...] area in groin) hydrALAZINE 0 Yes 50mg Q.[id number] Take 50 mg [facility] (APRESOLINE 7-[id number] mouth 3 [address] ) 50 MG [...] (affected area in groin) hydrALAZINE Yes 50mg Q.[id number] Take 50 mg [facility] (APRESOLINE 7-[id number] mouth [address] ) 50 MG [...] (affected area in groin) hydrALAZINE Yes 50mg Q.[id number] Take 50 mg [facility] (APRESOLINE 7-19 [id number] mouth [facility] ) 50 MG [...] [facility] tablet 25 l nystatin-tr 2020-0 Yes [id number] Apply to [facility] iainolone 7-06 area(s) 3 ity of cream 00:00: (three) [place] 00 times Medical daily. Branch nystatin-tr 2021-0 Yes [id number] Apply to [facility] iamcinolone 7-06 area(s) 3 ity of cream 00:00: (three) [place] 00 times Medical daily. Branch nystatin-tr 2021-0 Yes [id number] Apply to [facility] iamcinolone 7-06 area(s) 3 ity of cream 00:00: (three) [place] 00 times Medical daily. Branch nystatin-tr 2021-0 Yes [id number] Apply to [facility] iamcinolone 7-06 area(s) 3 ity of cream 00:00: (three) [place] 00 times Medical daily. Branch nystatin-tr 2021-0 Yes [id number] Apply to [facility] iamcinolone 7-06 area(s) 3 ity of cream 00:00: (three) [place] 00 times Medical daily. Branch nystatin-tr 2021-0 Yes [id number] Apply to [facility] iamcinolone 7-06 area(s) 3 ity of cream 00:00: (three) [place] 00 times Medical daily. Branch nystatin-tr 2021-0 Yes [id number] Apply to [facility] iamcinolone 7-06 area(s) 3 ity of cream 00:00: (three) [place] 00 times Medical daily. Branch nystatin-tr 2021-0 Yes [id number] Apply to [facility] iamcinolone 7-06 area(s) 3 ity of cream 00:00: (three) [place] 00 times Medical daily. Branch nystatin-tr 2021-0 Yes [id number] Apply to [facility] iamcinolone 7-06 area(s) 3 ity of cream 00:00: (three) [place] 00 times Medical daily. Branch nystatin-tr 2021-0 Yes [id number] Apply to [facility] iamcinolone 7-06 area(s) 3 ity of cream 00:00: (three) [place] 00 times Medical daily. Branch nystatin-tr 2021-0 Yes [id number] Apply to [facility] iamcinolone 7-06 area(s) 3 ity of cream 00:00: (three) [place] 00 times Medical daily. Branch nystatin-tr 2021-0 Yes [id number] Apply to [facility] iamcinolone 7-06 area(s) 3 ity of cream 00:00: (three) [place] 00 times Medical daily. Branch nystatin-tr 2021-0 Yes [id number] Apply to [facility] iamcinolone 7-06 area(s) 3 ity of cream 00:00: (three) [place] 00 times Medical daily. Branch nystatin-tr 2021-0 Yes [id number] Apply to [facility] iamcinolone 7-06 area(s) 3 ity of cream 00:00: (three) [place] 00 times Medical daily. Branch nystatin-tr 2021-0 Yes [id number] Apply to [facility] iamcinolone 7-06 area(s) 3 ity of cream 00:00: (three) [place] 00 times Medical daily. Branch nystatin-tr 2021-0 Yes [id number] Apply to [facility] iamcinolone 7-06 area(s) 3 ity of cream 00:00: (three) [place] 00 times Medical daily. Branch nystatin-tr 2021-0 Yes [id number] Apply to [facility] iamcinolone 7-06 area(s) 3 ity of cream 00:00: (three) [place] 00 times Medical daily. Branch nystatin-tr Yes [id number] Apply to [facility] 11-25 area(s) 3 ity of cream 00:00: (three) [place] 00 times Medical daily. Branch budesonide- 2020-0 2021- No 1{puff} QD Inhale 1 Methodi formoteroL 625 06-[address] (SYMBICORT) 14:37: 00:00 morning. H ospita 160-4.5 02 :00 l mcg/actuati on inhaler hydrALAZINE Yes [id number] 50mg [id number] Take 1 [place] (Apresoline 6-11 [id number] tablet (50 Health ) 50 MG 00:00: 3D mg total) tablet 00 by mouth 3 (three) times a day. hydrALAZINE Yes [id number] 50mg Q.[id number] Take 1 [facility] (Apresoline 6-11 [id number] tablet (50 Health ) 50 MG 00:00: [...] 5-30 Health tablet 00:00: 00 sertraline 0 2022- No 200mg 200 mg. [facility] (Zoloft) 10-19 02-22 Health 100 MG 00:00: 00:00 tablet 00 :00 mupirocin Yes [facility] (Bactroban) 10-17 Health 2 % 00:00: ointment 00 mupirocin 0 Yes [facility] (Bactroban) 10-17 Health 2 % 00:00: ointment 00 nystatin 2020- No [id number] Q.25D Take 5 mL [facility] (MYCOSTATIN 10-06 [...] ia 4-10 (Same as: l 14:00: Cordarone) [place] Amlodipine No Notes: Memor ia 4-10 (Same as: l 14:00: Norvasc) [place] emtricitabi No Notes: Caesar lisa ne 200 MG / 4-10 (Same as: l tenofovir 14:00: Descovy) Herm ariel alafenamide 00 Non-formul 25 MG Oral nancy Tablet [Descovy] Sertraline No Notes: Memor ia 4-10 (Same as: l 14:00: Zoloft) [place] pantoprazol No Notes: Caesar lisa e 4-10 Tablet l 14:00: should not Marty 00 be chewed or crushed. (Same as: Protonix) Amiodarone No Notes: Memor ia 4-10 (Same as: l 14:00: Cordarone) [place] Amlodipine No Notes: Memor ia 4-10 (Same as: l 14:00: Norvasc) [place] emtricitabi No Notes: Caesar lisa ne 200 MG / 4-10 (Same as: l tenofovir 14:00: Descovy) Herm ariel alafenamide 00 Non-formul 25 MG Oral nancy Tablet [Descovy] Sertraline No Notes: Memor ia 4-10 (Same as: l 14:00: Zoloft) [place] 00 pantoprazol No Notes: Caesar lisa e 4-10 Tablet l 14:00: should not Marty 00 be chewed or crushed. (Same as: Protonix) Amiodarone No Notes: Memor ia 4-10 (Same as: l 14:00: Cordarone) [place] Amlodipine No Notes: Memor ia 4-10 (Same as: l 14:00: Norvasc) [place] emtricitabi No Notes: Caesar lisa ne 200 MG / 4-10 (Same as: l tenofovir 14:00: Descovy) Herm ariel alafenamide 00 Non-formul 25 MG Oral nancy Tablet [Descovy] Sertraline No Notes: Memor ia 4-10 (Same as: l 14:00: Zoloft) [place] 00 pantoprazol No Notes: Caesar lisa e 4-10 Tablet l 14:00: should not [place] 00 be chewed or crushed. (Same as: Protonix) Amiodarone No Notes: Memor ia 4-10 (Same as: l 14:00: Cordarone) [place] 00 Amlodipine No Notes: Memor ia 4-10 (Same as: l 14:00: Norvasc) [place] 00 emtricitabi No Notes: Caesar lisa ne 200 MG / 4-10 (Same as: l tenofovir 14:00: Descovy) Herm ariel alafenamide 00 Non-formul 25 MG Oral nancy Tablet [Descovy] Sertraline No Notes: Memor ia 4-10 (Same as: l 14:00: Zoloft) [place] 00 pantoprazol No Notes: Caesar lisa e 4-10 Tablet l 14:00: should not Marty 00 be chewed or crushed. (Same as: Protonix) Amiodarone No Notes: Memor ia 4-10 (Same as: l 14:00: Cordarone) [place] 00 Amlodipine No Notes: Memor ia 4-10 (Same as: l 14:00: Norvasc) [place] 00 emtricitabi No Notes: Caesar lisa ne [...] 0.9% 4-10 (Same as: l 02:00: BD [place] Posiflush) Eliquis No Notes: Memoria 4-10 Same [...] 0.9% 4-10 (Same as: l 02:00: BD [place] Posiflush) Eliquis No Notes: Memoria 4-10 Same as: l 02:00: Eliquis [place] Hydralazine No Notes: Caesar lisa Hydrochlori 4-10 (Same as: l de 50 MG 02:00: Apresoline Her mitchell Oral Tablet 00 ) May interfere w/enteral feedings Take With Food Sucralfate No Notes: May M emoria 4-10 interfere l 02:00: w/enteral [place] 00 feeds - Take 1 hr before or 2 hr after antacids, dairy pdt, meals & minerals - On empty stomach. For patients unable to swallow tablet, dissolve in 10mL - 30mL of water or juice and stir before giving. (Same As: Carafate) Saline No Notes: [facility] Flush 0.9% 4-10 (Same as: l 02:00: BD [place] Posiflush) Eliquis No Notes: Memoria 4-10 Same as: l 02:00: Eliquis [place] 00 Hydralazine No Notes: Caesar lisa Hydrochlori [...] 0.9% 4-10 (Same as: l 02:00: BD [place] Posiflush) Eliquis No Notes: Memoria 4-10 Same as: l 02:00: Eliquis [place] 00 Hydralazine No Notes: Caesar lisa Hydrochlori [...] 0.9% 4-10 (Same as: l 02:00: BD [place] Posiflush) Eliquis No Notes: Memoria 4-10 Same as: l 02:00: Eliquis [place] 00 Hydralazine No Notes: Caesar lisa Hydrochlori 4-10 (Same as: l de 50 MG 02:00: Apresoline Her mitchell Oral Tablet 00 ) May interfere w/enteral feedings Take With Food acetaminoph No Notes: Do M emoria en-codeine 4-10 not exceed l #3 00:12: 4gm/day of [place] 00 acetaminop hen. (Same as: Tylenol with Codeine # 3) acetaminoph No Notes: Do M emoria en-codeine 4-10 not exceed l #3 00:12: 4gm/day of [place] acetaminop hen. (Same as: Tylenol with Codeine [...] not exceed l #3 00:12: 4gm/day of [place] acetaminop hen. (Same as: Tylenol with Codeine # 3) acetaminoph No Notes: Do M emoria en-codeine 4-10 not exceed l #3 00:12: 4gm/day of [place] acetaminop hen. (Same as: Tylenol with Codeine [...] oria 4-09 tab, l 22:00: Route: PO, [place] 00 Drug form: TAB, BID, Dosing Weight 97.273, kg, Start date: 08/29/20 17:00:00 CDT, Duration: 30 day, Stop date: 09/28/20 9:00:00 CDT metoprolol 1-0 No 100 mg, 1 Me moria tartrate 4-09 tab, l 22:00: Route: PO, [place] Drug form: TAB, BID, Dosing Weight 97.273, [...] oria 4-09 tab, l 22:00: Route: PO, [place] 00 Drug form: TAB, BID, Dosing Weight 97.273, kg, Start date: 08/29/20 17:00:00 CDT, Duration: 30 day, Stop date: 09/28/20 9:00:00 CDT metoprolol 1-0 No 100 mg, 1 Me moria tartrate 4-09 tab, l 22:00: Route: PO, [place] 00 Drug form: TAB, BID, Dosing Weight [...] tartrate 4-09 tab, l 22:00: Route: PO, [place] 00 Drug form: TAB, BID, Dosing Weight [...] oria - tab, l 22:00: Route: PO, [place] 00 Drug form: TAB, BID, Dosing Weight 97.273, kg, Start date: 08/29/20 17:00:00 CDT, Duration: 30 day, Stop date: 09/28/20 9:00:00 CDT metoprolol 2021-0 No 100 mg, 1 Me moria tartrate 4-09 tab, l 22:00: Route: PO, [place] Drug form: TAB, BID, Dosing Weight 97.273, [...] Notes: Memoria 4- (Same l 17:07: as:MORPhin [place] 00 e Sulfate) Morphine No Notes: Memoria 4- (Same l 17:07: as:MORPhin [place] 00 e Sulfate) buPROPion 2020-0 No 150 [...] 30 tab, 0 coated Refill(s), tablet Pharmacy: [facility], 162.56, cm, 08/29/20 5:30:00 CDT, Height, 97.273, kg, 08/29/20 5:30:00 CDT, Weight pantoprazol Yes 40 mg = 1 M emoria e 40 mg 4-09 tab, PO, l oral 15:27: Daily, # [place] enteric 00 30 tab, 0 coated Refill(s), tablet Pharmacy: [facility], 162.56, cm, 08/29/20 5:30:00 CDT, Height, 97.273, kg, 08/29/20 5:30:00 CDT, Weight pantoprazol 2020-0 Yes 40 mg = 1 M emoria e 40 mg 4-09 tab, PO, l oral 15:27: Daily, # [place] enteric 00 30 tab, 0 coated Refill(s), tablet Pharmacy: [facility], 162.56, cm, 08/29/20 5:30:00 CDT, Height, 97.273, kg, 08/29/20 5:30:00 CDT, Weight pantoprazol 1-0 Yes 40 mg = 1 M emoria e 40 mg 4-09 tab, PO, l oral 15:27: Daily, # [place] enteric 00 30 tab, 0 coated Refill(s), tablet Pharmacy: [facility], 162.56, cm, 08/29/20 5:30:00 CDT, Height, 97.273, kg, 08/29/20 5:30:00 CDT, Weight pantoprazol 1-0 Yes 40 mg = 1 M emoria e 40 mg 4-09 tab, PO, l oral 15:27: Daily, # [place] enteric 00 30 tab, 0 coated Refill(s), tablet Pharmacy: [facility], 162.56, cm, 08/29/20 5:30:00 CDT, Height, 97.273, kg, 08/29/20 5:30:00 CDT, Weight pantoprazol 1-0 Yes 40 mg = 1 M emoria e 40 mg 4-09 tab, PO, l oral 15:27: Daily, # [place] enteric 00 30 tab, 0 coated Refill(s), tablet Pharmacy: [facility], 162.56, cm, 08/29/20 5:30:00 CDT, Height, 97.273, kg, 08/29/20 5:30:00 CDT, Weight pantoprazol 1-0 Yes 40 mg = 1 M emoria e 40 mg 4-09 tab, PO, l oral 15:27: Daily, # [place] enteric 00 30 tab, 0 coated Refill(s), tablet Pharmacy: [facility], 162.56, cm, 08/29/20 5:30:00 CDT, [...] Skylar nn 00 tab, 0 Refill(s), Pharmacy: [facility], 162.56, cm, 08/29/20 5:30:00 CDT, [...] Skylar nn 00 tab, 0 Refill(s), Pharmacy: [facility], 162.56, cm, 08/29/20 5:30:00 CDT, [...] Skylar nn 00 tab, 0 Refill(s), Pharmacy: [place] [id number], 162.56, cm, 08/29/20 5:30:00 CDT, Height, 97.273, kg, 08/29/20 5:30:00 CDT, Weight pantoprazol 2020-0 No 40 mg = 1 M emoria e 40 mg 4-09 tab, PO, l oral 15:26: Daily, # [place] enteric 00 30 tab, 0 coated Refill(s) tablet sucralfate 1-0 Yes 1 gm = 1 Mem oria 1 g oral 4-09 tab, PO, l tablet 15:26: Q12H, # 28 Skylar nn 00 tab, 0 Refill(s), Pharmacy: [facility], 162.56, cm, 08/29/20 5:30:00 CDT, Height, 97.273, kg, 08/29/20 5:30:00 CDT, Weight pantoprazol No 40 mg = 1 M emoria e 40 mg 4-09 tab, PO, l oral 15:26: Daily, # [place] enteric 00 30 tab, 0 coated Refill(s) tablet sucralfate Yes 1 gm = 1 Mem oria 1 g oral 4-09 tab, PO, l tablet 15:26: Q12H, # 28 Skylar nn 00 tab, 0 Refill(s), Pharmacy: [facility], 162.56, cm, 08/29/20 5:30:00 CDT, [...] Skylar nn 00 tab, 0 Refill(s), Pharmacy: [facility], 162.56, cm, 08/29/20 5:30:00 CDT, Height, 97.273, kg, 08/29/20 5:30:00 CDT, Weight pantoprazol No 40 mg = 1 M emoria e 40 mg 4-09 tab, PO, l oral 15:26: Daily, # [place] enteric 00 30 tab, 0 coated Refill(s) tablet sucralfate Yes 1 gm = 1 Mem oria 1 g oral 4-09 tab, PO, l tablet 15:26: Q12H, # 28 Skyl[place] nn 00 tab, 0 Refill(s), Pharmacy: [facility], 162.56, cm, 08/29/20 5:30:00 CDT, Height, 97.273, kg, 08/29/20 5:30:00 CDT, Weight Saline No Notes: [facility] Flush 0.9% 4 (Same as: l 15:25: BD [place] 00 Posiflush) Lorazepam No Notes: Memori a 4-09 (Same as: l 15:25: Ativan) Saline No Notes: [facility] Flush 0.9% 4-09 (Same as: l 15:25: BD [place] 00 Posiflush) Lorazepam No Notes: Memori a 4-09 (Same as: l 15:25: Ativan) Saline No Notes: [facility] Flush 0.9% 4-09 (Same as: l 15:25: BD [place] 00 Posiflush) Saline No Notes: [facility] Flush 0.9% 4-09 (Same as: l 15:25: BD [place] 00 Posiflush) Lorazepam No Notes: Memori a 4-09 (Same as: l 15:25: Ativan) Lorazepam No Notes: Memori a 4-09 (Same as: l 15:25: Ativan) Saline No Notes: [facility] Flush 0.9% 4-09 (Same as: l 15:25: BD [place] 00 Posiflush) Lorazepam No Notes: Memori a 4-09 (Same as: l 15:25: Ativan) Saline No Notes: [facility] Flush 0.9% 4-09 (Same as: l 15:25: BD [place] 00 Posiflush) Lorazepam No Notes: Memori a [...] Drug form: l mg + 15:00: INJ, [place] Dosing Weight 97.3, kg, Start date: 08/29/20 10:00:00 CDT, Stop date: 08/29/20 11:00:00 CDT Isuprel HCl 0 No Route: IV, [facility] (ANES) 0.2 08-29 Drug form: l mg + 15:00: INJ, [place] Dosing Weight 97.3, kg, Start date: 08/29/20 10:00:00 CDT, Stop date: 08/29/20 11:00:00 CDT Isuprel HCl 0 No Route: IV, [facility] (ANES) 0.2 08-29 Drug form: l mg + 15:00: INJ, [place] Dosing Weight 97.3, kg, Start date: 08/29/20 10:00:00 CDT, Stop date: 08/29/20 11:00:00 CDT Isuprel HCl 0 No Route: IV, [facility] (ANES) 0.2 08-29 Drug form: l mg + 15:00: INJ, [place] Dosing Weight 97.3, kg, Start date: 08/29/20 10:00:00 CDT, Stop date: 08/29/20 11:00:00 CDT Isuprel HCl 0 No Route: IV, [facility] (ANES) 0.2 08-29 Drug form: l mg + 15:00: INJ, [place] Dosing Weight 97.3, kg, Start date: 08/29/20 10:00:00 CDT, Stop date: 08/29/20 11:00:00 CDT Isuprel HCl 0 No Route: IV, [facility] (ANES) 0.2 08-29 Drug form: l mg + 15:00: INJ, [place] Dosing Weight 97.3, kg, Start date: 08/29/20 10:00:00 CDT, Stop date: 08/29/20 11:00:00 CDT heparin No Route: IV, Caesar lisa (ANES) 08-29 Drug form: l 14:49: INJ, ONCE, [place] 00 Stop date: 08/29/20 9:49:00 CDT heparin [...] 08-29 Drug form: l 14:29: INJ, ONCE, [place] 00 Stop date: 08/29/20 9:29:00 CDT propofol 2021-0 No Route: IV, Mem oria (ANES) 08-29 Drug form: l 14:29: INJ, ONCE, Stop date: 08/29/20 9:29:00 CDT propofol 2021-0 No Route: IV, Mem oria (ANES) 08-29 Drug form: l 14:29: INJ, ONCE, [place] 00 Stop date: 08/29/20 9:29:00 CDT propofol 202-0 No Route: IV, Mem oria (ANES) 08-29 Drug form: l 14:29: INJ, ONCE, [place] 00 Stop date: 08/29/20 9:29:00 CDT propofol 2021-0 No Route: IV, Mem oria (ANES) 08-29 Drug form: l 14:29: INJ, ONCE, Stop date: 08/29/20 9:29:00 CDT propofol 202-0 No Route: IV, Mem oria (ANES) 08-29 Drug form: l 14:29: INJ, ONCE, [place] 00 Stop date: 08/29/20 9:29:00 CDT heparin 202-0 No Route: IV, Caesar lisa (ANES) 08-29 Drug form: l 14:18: INJ, ONCE, [place] 00 Stop date: 08/29/20 9:18:00 CDT heparin 202-0 No Route: IV, Caesar lisa (ANES) 08-29 Drug form: l 14:18: INJ, ONCE, [place] 00 Stop date: 08/29/20 9:18:00 CDT heparin 202-0 No Route: IV, Caesar lisa (ANES) 08-29 Drug form: l 14:18: INJ, ONCE, [place] 00 Stop date: 08/29/20 9:18:00 CDT heparin 202-0 No Route: IV, Caesar lisa (ANES) 08-29 Drug form: l 14:18: INJ, ONCE, [place] 00 Stop date: 08/29/20 9:18:00 CDT heparin 202-0 No Route: IV, Caesar lisa (ANES) 08-29 Drug form: l 14:18: INJ, ONCE, [place] 00 Stop date: 08/29/20 9:18:00 CDT heparin 202-0 No Route: IV, Caesar lisa (ANES) 08-29 Drug form: l 14:18: INJ, ONCE, [place] 00 Stop date: 08/29/20 9:18:00 CDT heparin 2021-0 No Route: IV, [place] lisa (ANES) 08-29 Drug form: l 14:18: INJ, ONCE, [place] 00 Stop date: 08/29/20 9:18:00 CDT Labetalol 1-0 No 10 mg, Memori a 08-29 Route: l 14:01: IVP, [place] 00 Q5Min, Dosing Weight 97.273, kg, PRN Elevated BP, Start date: 08/29/20 9:01:00 CDT, Duration: 5 doses or times, Stop date: Limited # of times Acetaminoph 2021-0 No 1,000 mg, M emoria en 08-29 Route: PO, l 14:01: Drug form: [place] 00 TAB, ONCE, Dosing Weight 97.273, kg, [...] lisa 08-29 Route: l 14:01: IVP, PRN, [place] 00 Dosing Weight 97.273, kg, PRN Benzodiaze [...] 08-29 Route: PO, l 14:01: Drug form: [place] 00 TAB, ONCE, Dosing Weight 97.273, kg, [...] lisa 08-29 Route: l 14:01: IVP, PRN, [place] 00 Dosing Weight 97.273, kg, PRN Benzodiaze [...] Memori a 08-29 Route: l 14:01: IVP, [place] 00 Q5Min, Dosing Weight 97.273, kg, PRN Elevated BP, Start date: 08/29/20 9:01:00 CDT, Duration: 5 doses or times, Stop date: Limited # of times Acetaminoph 2020-0 No 1,000 mg, M emoria en 08-29 Route: PO, l 14:01: Drug form: [place] 00 TAB, ONCE, Dosing Weight 97.273, kg, [...] Memori a 08-29 Route: l 14:01: IVP, [place] 00 Q2MIN, Dosing Weight 97.273, kg, PRN [...] Memori a 08-29 Route: l 14:01: IVP, [place] 00 Q5Min, Dosing Weight 97.273, kg, PRN Elevated BP, Start date: 08/29/20 9:01:00 CDT, Duration: 5 doses or times, Stop date: Limited # of times Acetaminoph 1-0 No 1,000 mg, M emoria en 08-29 Route: PO, l 14:01: Drug form: [place] 00 TAB, ONCE, Dosing Weight 97.273, kg, [...] lisa 08-29 Route: l 14:01: IVP, PRN, [place] 00 Dosing Weight 97.273, kg, PRN Benzodiaze pine Reversal, Initial dose, Start date: 08/29/20 9:01:00 CDT, Duration: 30 day, Stop date: 09/28/20 9:00:00 CDT Naloxone 1-0 No 0.4 mg, Memori a 08-29 Route: l 14:01: IVP, [place] 00 Q2MIN, Dosing Weight 97.273, kg, PRN [...] Memori a 08-29 Route: l 14:01: IVP, [place] 00 Q5Min, Dosing Weight 97.273, kg, PRN Elevated BP, Start date: 08/29/20 9:01:00 CDT, Duration: 5 doses or times, Stop date: Limited # of times Acetaminoph 2021-0 No 1,000 mg, M emoria en 09 Route: PO, l 14:01: Drug form: [place] 00 TAB, ONCE, Dosing Weight 97.273, kg, [...] lisa 08-29 Route: l 14:01: IVP, PRN, [place] 00 Dosing Weight 97.273, kg, PRN Benzodiaze pine Reversal, Initial dose, Start date: 08/29/20 9:01:00 CDT, Duration: 30 day, Stop date: 09/28/20 9:00:00 CDT Naloxone 2021-0 No 0.4 mg, Memori a 08-29 Route: l 14:01: IVP, [place] 00 Q2MIN, Dosing Weight 97.273, kg, PRN [...] oria ne 08-29 Route: l 14:01: IVP, [place] 00 Q5Min, Dosing Weight 97.273, kg, PRN [...] Drug form: l 10 13:15: INJ, Start [place] microgram date: 08/29/20 8:15:00 CDT, Stop date: [...] Drug form: l 10 13:15: INJ, Start [place] microgram 00 date: 08/29/20 8:15:00 CDT, Stop date: 08/29/20 9:15:00 CDT norepinephr 2020-0 No Route: IV, Memoria ine (ANES) 4- Drug form: l 10 13:15: INJ, Start [place] microgram 00 date: 08/29/20 8:15:00 CDT, Stop date: 08/29/20 9:15:00 CDT norepinephr 2020-0 No Route: IV, Memoria ine (ANES) 4- Drug form: l 10 13:15: INJ, Start [place] microgram date: 08/29/20 8:15:00 CDT, Stop date: 08/29/20 9:15:00 CDT Sodium 2020-0 No Route: IV, Memor ia Chloride 4-09 Total l 0.9% IV 12:30: Volume: [place] (ANES) 1000 00 1,000, mL Start date: 08/29/20 7:30:00 CDT, Stop date: 08/29/20 8:30:00 CDT Sodium 2020-0 No Route: IV, Memor ia Chloride 4-09 Total l 0.9% IV 12:30: Volume: [place] (ANES) 1000 00 1,000, mL Start date: [...] 4-09 Total l 0.9% IV 12:30: Volume: [place] (ANES) 1000 00 1,000, mL Start date: [...] PO, l Hydrochlori 11:42: Q24H, # 30 [place] de 150 MG 00 tab, 0 Extended [...] PO, l Hydrochlori 11:42: Q24H, # 30 [place] de 150 MG 00 tab, 0 Extended Refill(s) Release Tablet 24 HR Yes 150 mg = 1 Memori a Bupropion -09 tab, PO, l Hydrochlori 11:42: Q24H, # 30 [place] de 150 MG 00 tab, 0 Extended Refill(s) Release Tablet 24 HR Yes 150 mg = 1 Memori a Bupropion 4-09 tab, PO, l Hydrochlori 11:42: Q24H, # 30 [place] de 150 MG 00 tab, 0 Extended Refill(s) Release Tablet apixaban Yes 5 mg, PO, Me moria MG Oral 4-09 Q12H, tab, l Tablet 11:41: 0 [place] [Eliquis] 00 Refill(s), For Atrial Fibrilatio n [...] 08-29 Q12H, tab, l Tablet 11:41: 0 [place] [Eliquis] 00 Refill(s), For Atrial Fibrilatio n [...] tab, PO, l tablet 11:38: Daily, # [place] 00 90 tab, 3 Refill(s) AMIODarone 2020-0 [...] tab, PO, l tablet 11:38: Daily, # [place] 00 90 tab, 3 Refill(s) AMIODarone 2020-0 [...] tab, PO, l tablet 11:38: Daily, # [place] 00 90 tab, 3 Refill(s) normal No [...] Filled Immunization Date Status Comments [facility] e Immunization Name Name SARS-COV-2 COVID-19 2022-03-05 [...] COVID-19 2020-07-23 [facility]pleted [facility]:00 [facility] PFIZER COVID-19 2020-07-23 Completed [facility] 00:00:00 [facility] PFIZER COVID-19 2020-07-23 Completed [facility] 00:00:00 [facility] PFIZER COVID-19 2020-07-23 Completed [facility]ACC[facility] 00:00:00 [facility] PFIZER COVID-19 2020-07-23 Completed [facility]ACC[facility] 00:00:00 [facility] PFIZER COVID-19 2020-07-23 Completed [facility]ACC[facility] 00:00:00 [facility] PFIZER COVID-19 2020-07-23 Completed [facility]ACC[facility] 00:00:00 [facility] PFIZER COVID-19 2020-07-23 Completed [facility] 00:00:00 [facility] PFIZER COVID-19 2020-07-23 Completed [facility] 00:00:00 [facility] PFIZER COVID-19 2020-07-23 Completed [facility] 00:00:00 [facility] PFIZER COVID-19 2020-07-23 Completed [facility]ACC[facility] 00:00:00 [facility] PFIZER COVID-19 2020-07-23 Completed [facility]ACC[facility] 00:00:00 [facility] PFIZER COVID-19 2020-07-23 Completed [facility] 00:00:00 [facility] PFIZER COVID-19 2020-07-23 Completed [facility]ACC[facility] 00:00:00 [facility] PFIZER COVID-19 2020-07-23 Completed [facility]ACC[facility] 00:00:00 [facility] PFIZER COVID-19 2020-07-23 Completed [facility]ACC[facility] 00:00:00 [facility] PFIZER COVID-19 2020-07-23 Completed [facility] 00:00:00 [facility] PFIZER COVID-19 2020-07-23 Completed [facility] 00:00:00 [facility] PFIZER COVID-19 2020-07-23 Completed [facility] 00:00:00 [facility] PFIZER COVID-19 2020-07-23 Completed [facility]ACC[facility] 00:00:00 [facility] PFIZER COVID-19 2020-07-23 Completed [facility] 00:00:00 [facility] PFIZER COVID-19 2020-07-23 Completed [facility] 00:00:00 [facility] PFIZER COVID-19 2020-07-23 Completed [facility]ACC[facility] 00:00:00 [facility] PFIZER COVID-19 2020-07-23 Completed [facility] 00:00:00 [facility] PFIZER COVID-19 2020-07-23 Completed [facility] 00:00:00 [facility] PFIZER COVID-19 2020-07-23 Completed [facility] 00:00:00 [facility] PFIZER COVID-19 2020-07-23 Completed [facility]ACC[facility] 00:00:00 [facility] PFIZER COVID-19 2020-07-23 Completed [facility] 00:00:00 [facility] PFIZER COVID-19 2020-07-23 Completed [facility]ACC[facility] 00:00:00 [facility] PFIZER COVID-19 2020-07-23 Completed [facility] 00:00:00 [facility] PFIZER COVID-19 2020-07-23 Completed [facility] 00:00:00 [facility] PFIZER COVID-19 2020-07-23 Completed [facility] 00:00:00 [facility] PFIZER COVID-19 2020-07-23 Completed [facility] 00:00:00 [facility] PFIZER COVID-19 2020-07-23 Completed [facility] 00:00:00 [facility] PFIZER COVID-19 2020-07-23 Completed [facility] 00:00:00 [facility] PFIZER COVID-19 2020-07-23 Completed [facility] 00:00:00 [facility] PFIZER COVID-19 2020-07-23 Completed [facility] 00:00:00 [facility] PFIZER COVID-19 2020-07-23 Completed [facility] 00:00:00 [facility] SARS-COV-2 COVID-19 2020-07-23 Completed [facility] PFIZER VACCINE 00:00:00 [facility] SARS-COV-2 COVID-19 2020-07-23 Completed [facility] PFIZER VACCINE 00:00:00 [facility] SARS-COV-2 COVID-19 2020-07-23 Completed [facility] PFIZER VACCINE 00:00:00 [facility] SARS-COV-2 COVID-19 2020-07-23 Completed [facility] PFIZER VACCINE 00:00:00 [facility] [place] SARS-COV-2 COVID-19 2020-07-23 Completed [facility] PFIZER VACCINE 00:00:00 [facility] [place] SARS-COV-2 COVID-19 2020-07-23 Completed [facility] PFIZER VACCINE 00:00:00 [facility] [place] SARS-COV-2 COVID-19 2020-07-23 Completed [facility] PFIZER VACCINE 00:00:00 [facility] [place] SARS-COV-2 COVID-19 2020-07-23 Completed [facility] PFIZER VACCINE 00:00:00 [facility] [place] SARS-COV-2 COVID-19 2020-07-23 Completed [facility] PFIZER VACCINE 00:00:00 [facility] [place] SARS-COV-2 COVID-19 2020-07-23 Completed [facility] PFIZER VACCINE 00:00:00 [facility] [place] SARS-COV-2 COVID-19 2020-07-23 Completed [facility] PFIZER VACCINE 00:00:00 [facility] [place] SARS-COV-2 COVID-19 2020-07-23 Completed [facility] PFIZER VACCINE 00:00:00 [facility] [place] SARS-COV-2 COVID-19 2020-07-23 Completed [facility] PFIZER VACCINE 00:00:00 [facility] [place] SARS-COV-2 COVID-19 2020-07-23 Completed [facility]FI[facility] VACCINE 00:00:00 [facility] [place] PFIZER COVID-19 2020-07-23 [facility]00 [facility] PFIZER COVID-19 2020-07-02 [facility]pleted [facility]ACC[facility] 00:00:00 [facility] PFIZER COVID-19 2020-07-02 [facility]pleted [facility]ACC[facility] 00:00:00 [facility] PFIZER COVID-19 2020-07-02 [facility]pleted [facility]ACC[facility] 00:00:00 [facility] PFIZER COVID-19 2020-07-02 Completed [facility] VACC[facility] 00:00:00 [facility] PFIZER COVID-19 2020-07-02 Completed [facility] VACC[facility] 00:00:00 [facility] PFIZER COVID-19 2020-07-02 Completed [facility] VACC[facility] 00:00:00 [facility] PFIZER COVID-19 2020-07-02 Completed [facility] VACC[facility] 00:00:00 [facility] PFIZER COVID-19 2020-07-02 Completed [facility] VACCIN[facility] 00:00:00 [facility] PFIZER COVID-19 2020-07-02 [facility]00 [facility] PFIZER COVID-19 2020-07-02 [facility]:00:00 [facility] PFIZER COVID-19 2020-07-02 [facility]pleted [facility]:00:00 [facility] PFIZER COVID-19 2020-07-02 [facility]:00:00 [facility] PFIZER COVID-19 2020-07-02 [facility]:00:00 [facility] PFIZER COVID-19 2020-07-02 [facility]:00:00 [facility] PFIZER COVID-19 2020-07-02 Completed [facility]:00:00 [facility] PFIZER COVID-19 2020-07-02 Com[facility]:00:00 [facility] PFIZER COVID-19 2020-07-02 Com[facility]:00:00 [facility] PFIZER COVID-19 2020-07-02 [facility]:00:00 [facility] PFIZER COVID-19 2020-07-02 Completed [facility]:00:00 [facility] PFIZER COVID-19 2020-07-02 [facility]:00:00 [facility] PFIZER COVID-19 2020-07-02 Com[facility]:00:00 [facility] PFIZER COVID-19 2020-07-02 Completed [facility]:00:00 [facility] PFIZER COVID-19 2020-07-02 Completed [facility] 00:00:00 [facility] PFIZER COVID-19 2020-07-02 Completed [facility]:00:00 [facility] PFIZER COVID-19 2020-07-02 Completed [facility] 00:00:00 [facility] PFIZER COVID-19 2020-07-02 Completed [facility] 00:00:00 [facility] PFIZER COVID-19 2020-07-02 Completed [facility]:00:00 [facility] PFIZER COVID-19 2020-07-02 Completed [facility] 00:00:00 [facility] PFIZER COVID-19 2020-07-02 Com[facility] 00:00:00 [facility] PFIZER COVID-19 2020-07-02 Com[facility] 00:00:00 [facility] PFIZER COVID-19 2020-07-02 Completed [facility]:00:00 [facility] PFIZER COVID-19 2020-07-02 Com[facility]:00:00 [facility] PFIZER COVID-19 2020-07-02 Completed [facility]:00:00 [facility] PFIZER COVID-19 2020-07-02 Completed [facility] 00:00:00 [facility] PFIZER COVID-19 2020-07-02 Com[facility] 00:00:00 [facility] PFIZER COVID-19 2020-07-02 Completed [facility] 00:00:00 [facility] PFIZER COVID-19 2020-07-02 Completed [facility] 00:00:00 [facility] PFIZER COVID-19 2020-07-02 Completed [facility]:00:00 [facility] SARS-COV-2 COVID-19 2020-07-02 Completed [facility] P[facility]ZER VACCINE 00:00:00 [facility] SARS-COV-2 COVID-19 2020-07-02 Completed [facility] PFIZER VACCINE 00:00:00 [facility] SARS-COV-2 COVID-19 2020-07-02 Completed [facility] PFIZER VACCINE 00:00:00 [facility] SARS-COV-2 COVID-19 2020-07-02 Completed [facility] PFIZER VACCINE 00:00:00 [facility] SARS-COV-2 COVID-19 2020-07-02 Completed [facility] PFIZER VACCINE 00:00:00 [facility] SARS-COV-2 COVID-19 2020-07-02 Completed [facility] PFIZER VACCINE 00:00:00 [facility] SARS-COV-2 COVID-19 2020-07-02 Completed [facility] PFIZER VACCINE 00:00:00 [facility] SARS-COV-2 COVID-19 2020-07-02 Completed [facility] PFIZER VACCINE 00:00:00 [facility] SARS-COV-2 COVID-19 2020-07-02 Completed [facility] PFIZER VACCINE 00:00:00 [facility] SARS-COV-2 COVID-19 2020-07-02 Completed [facility] PFIZER VACCINE 00:00:00 [facility] SARS-COV-2 COVID-19 2020-07-02 Completed [facility] PFIZER VACCINE 00:00:00 [facility] SARS-COV-2 COVID-19 2020-07-02 Completed [facility] PFIZER VACCINE 00:00:00 [facility] SARS-COV-2 COVID-19 2020-07-02 Completed [facility] PFIZER VACCINE 00:00:00 [facility] SARS-COV-2 COVID-19 2020-07-02 Completed [facility] PFIZER VACCINE 00:00:00 [facility] PFIZER COVID-19 2020-07-02 [facility]:00 [facility] Influenza Virus 2017-03-08 Completed [facility] Vaccine 00:00:00 [facility] Influenza Virus 2017-03-08 Completed [facility] Vaccine 00:00:00 [facility] Influenza Virus 2017-03-08 Completed [facility] Vaccine 00:00:00 [facility] Influenza Virus 2017-03-08 Completed [facility] Vaccine 00:00:00 [facility] Influenza Virus 2017-03-08 Completed [facility] Vaccine 00:00:00 [facility] Influenza Virus 2017-03-08 Completed [facility] Vaccine 00:00:00 [facility] Influenza Virus 2017-03-08 Completed [facility] Vaccine 00:00:00 [facility] Influenza Virus 2017-03-08 Completed [facility] Vaccine 00:00:00 [facility] Influenza Virus 2017-03-08 Completed [facility] Vaccine 00:00:00 [facility] Influenza Virus 2017-03-08 Completed [facility] Vaccine 00:00:00 [facility] Influenza Virus 2017-03-08 Completed [facility] Vaccine 00:00:00 [facility] Influenza Virus 2017-03-08 Completed [facility] Vaccine 00:00:00 [facility] Influenza Virus 2017-03-08 Completed [facility] Vaccine 00:00:00 [facility] Influenza Virus 2017-03-08 Completed [facility] Vaccine 00:00:00 [facility] Influenza Virus 2017-03-08 Completed [facility] Vaccine 00:00:00 [facility] Influenza Virus 2017-03-08 Completed [facility] Vaccine 00:00:00 [facility] Influenza Virus 2017-03-08 Completed [facility] Vaccine 00:00:00 [facility] Influenza Virus 2017-03-08 Completed [facility] Vaccine 00:00:00 [facility] Influenza Virus 2014-01-30 Completed [facility] Vaccine (3+ yrs) 00:[facility] P[facility] 13 2014-01-30 Completed [facility] Conjugate, PCV13 00:00:00 [facility] dical (Prevnar 13) Branch Influenza Virus 2014-01-30 Completed [facility] Vaccine (3+ yrs) 00:00[facility]00 [facility] Pneum[facility] 13 2014-01-30 Completed [facility] Conjugate, PCV13 00:00:00 [facility] dical (Prevnar 13) Branch Influenza Virus 2014-01-30 Completed [facility] Vaccine (3+ yrs) 00:00:00 [facility] Pneumococcal 13 2014-01-30 Completed [facility] Conjugate, PCV13 00:00:00 [facility] dical (Prevnar 13) Branch Influenza Virus 2014-01-30 Completed [facility] Vaccine (3+ yrs) 00:00:00 [facility] Pneumococcal 13 2014-01-30 Completed [facility] Conjugate, PCV13 00:00:00 [facility] dical (Prevnar 13) Branch Influenza Virus 2014-01-30 Completed [facility] Vaccine (3+ yrs) 00:00:00 [facility]ical Branch Pneumococcal 13 2014-01-30 Completed [facility] of Conjugate, PCV13 00:00:00 [facility] dical (Prevnar 13) Branch Influenza Virus 2014-01-30 Completed [facility] Vaccine (3+ yrs) 00:00:00 [facility] Branch Pneumococcal 13 2014-01-30 Completed [facility] Conjugate, PCV13 00:00:00 [facility] (Prevnar 13) [facility] Influenza Virus 2014-01-30 Completed [facility] Vaccine (3+ yrs) 00:00:00 [facility] Pneumococcal 13 2014-01-30 Completed [facility] Conjugate, PCV13 00:00:00 [place] [facility] (Prevnar 13) [facility] Influenza Virus 2014-01-30 Completed [facility] Vaccine (3+ yrs) 00:00:00 [facility] Pneumococcal 13 2014-01-30 Completed [facility] Conjugate, PCV13 00:00:00 [place] [facility] (Prevnar 13) [facility] Influenza Virus 2014-01-30 Completed [facility] Vaccine (3+ yrs) 00:00:00 [facility] Pneumococcal 13 2014-01-30 Completed [facility] Conjugate, PCV13 00:00:00 [place] [facility] (Prevnar 13) [facility] Influenza Virus 2014-01-30 Completed [facility] Vaccine (3+ yrs) 00:00:00 [facility] Pneumococcal 13 2014-01-30 Completed [facility] Conjugate, PCV13 00:00:00 [place] [facility] (Prevnar 13) [facility] Influenza Virus 2014-01-30 Completed [facility] Vaccine (3+ yrs) 00:00:00 [facility] Pneumococcal 13 2014-01-30 Completed [facility] Conjugate, PCV13 00:00:00 [place] [facility] (Prevnar 13) [facility] Influenza Virus 2014-01-30 Completed [facility] Vaccine (3+ yrs) 00:00:00 [facility] d[facility] Branch Pneumococcal 13 2014-01-30 Completed [facility] Conjugate, PCV13 00:00:00 [place] [facility] (Prevnar 13) [facility] Influenza Virus 2014-01-30 Completed [facility] Vaccine (3+ yrs) 00:00:00 [facility] Branch Pneumococcal 13 2014-01-30 Completed [facility] Conjugate, PCV13 00:00:00 [place] [facility] (Prevnar 13) [facility] Influenza Virus 2014-01-30 Completed [facility] Vaccine (3+ yrs) 00:00:00 [facility] Branch Pneumococcal 13 2014-01-30 Completed [facility] of Conjugate, PCV13 00:00:00 [facility] dical (Prevnar 13) Branch Influenza Virus 2014-01-30 Completed [facility] Vaccine (3+ yrs) 00:00:00 [facility] Branch Pneumococcal 13 2014-01-30 Completed [facility] of Conjugate, PCV13 00:00:00 [facility] dical (Prevnar 13) Branch Influenza Virus 2014-01-30 Completed [facility] of Vaccine (3+ yrs) 00:00:00 [facility] Branch Pneumococcal 13 2014-01-30 Completed [facility] of Conjugate, PCV13 00:00:00 [facility] dical (Prevnar 13) Branch Influenza Virus 2014-01-30 Completed [facility] Vaccine (3+ yrs) 00:00:00 [facility] Branch Pneumococcal 13 2014-01-30 Completed [facility] of Conjugate, PCV13 00:00:00 [facility] dical (Prevnar 13) Branch Influenza Virus 2014-01-30 Completed [facility] Vaccine (3+ yrs) 00:00:00 [facility] Pneumococcal 13 2014-01-30 Completed [facility] Conjugate, PCV13 00:00:00 [facility] dical (Prevnar 13) Branch Pneumococcal 2012-02-16 Completed [facility] f Polysaccharide, 00:00:00 [place] [facility] PPSV23 (PNEUMOVAX) Branch Influenza Virus 2012-02-16 Completed [facility] Vaccine 00:00:00 [facility] PPD (TB) 2012-02-16 Completed [facility] of 00:00:00 [facility] Pneumococcal 2012-02-16 Completed [facility] f Polysaccharide, 00:00:00 [place] [facility] PPSV23 (PNEUMOVAX) Branch Influenza Virus 2012-02-16 Completed [facility] Vaccine 00:00:00 [facility] PPD (TB) 2012-02-16 Completed [facility] 00:00:00 [facility] Pneumococcal 2012-02-16 Completed [facility] f Polysaccharide, 00:00:00 [facility] PPSV23 (PNEUMOVAX) Branch Influenza Virus 2012-02-16 Completed [facility] Vaccine 00:00:00 [facility] PPD (TB) 2012-02-16 Completed [facility] 00:00:00 [facility] Pneumococcal 2012-02-16 Completed [facility] f Polysaccharide, 00:00:00 [place] [facility] PPSV23 (PNEUMOVAX) Branch Influenza Virus 2012-02-16 Completed [facility] Vaccine 00:00:00 [facility] PPD (TB) 2012-02-16 Completed [facility] 00:00:00 [facility] Pneumococcal 2012-02-16 Completed [facility] f Polysaccharide, 00:00:00 [place] [facility] PPSV23 (PNEUMOVAX) Branch Influenza Virus 2012-02-16 Completed [facility] Vaccine 00:00:00 [facility] PPD (TB) 2012-02-16 Completed [facility] 00:00:00 [facility] Pneumococcal 2012-02-16 Completed [facility] f Polysaccharide, 00:00:00 [place] [facility] PPSV23 (PNEUMOVAX) Branch Influenza Virus 2012-02-16 Completed [facility] Vaccine 00:00:00 [facility] PPD (TB) 2012-02-16 Completed [facility] 00:00:00 [facility] Pneumococcal 2012-02-16 Completed [facility] f Polysaccharide, 00:00:00 [place] [facility] PPSV23 (PNEUMOVAX) Branch Influenza Virus 2012-02-16 Completed [facility] Vaccine 00:00:00 [facility] PPD (TB) 2012-02-16 Completed [facility] 00:00:00 [facility] Pneumococcal 2012-02-16 Completed [facility] f Polysaccharide, 00:00:00 [place] [facility] PPSV23 (PNEUMOVAX) Branch Influenza Virus 2012-02-16 Completed [facility] Vaccine 00:00:00 [facility] PPD (TB) 2012-02-16 Completed [facility] 00:00:00 [facility] Pneumococcal 2012-02-16 Completed [facility] f Polysaccharide, 00:00:00 [facility] PPSV23 (PNEUMOVAX) Branch Influenza Virus 2012-02-16 Completed [facility] Vaccine 00:00:00 [facility] PPD (TB) 2012-02-16 Completed [facility] 00:00:00 [facility] Pneumococcal 2012-02-16 Completed [facility] f Polysaccharide, 00:00:00 [place] [facility] PPSV23 (PNEUMOVAX) Branch Influenza Virus 2012-02-16 Completed [facility] Vaccine 00:00:00 [facility] PPD (TB) 2012-02-16 Completed [facility] 00:00:00 [facility] Pneumococcal 2012-02-16 Completed [facility] f Polysaccharide, 00:00:00 [facility] PPSV23 (PNEUMOVAX) Branch Influenza Virus 2012-02-16 Completed [facility] Vaccine 00:00:00 [facility] PPD (TB) 2012-02-16 Completed [facility] 00:00:00 [facility] Pneumococcal 2012-02-16 Completed [facility] f Polysaccharide, 00:00:00 [place] [facility] PPSV23 (PNEUMOVAX) Branch Influenza Virus 2012-02-16 Completed [facility] Vaccine 00:00:00 [facility] PPD (TB) 2012-02-16 Completed [facility] 00:00:00 [facility] Pneumococcal 2012-02-16 Completed [facility] f Polysaccharide, 00:00:00 [place] [facility] PPSV23 (PNEUMOVAX) Branch Influenza Virus 2012-02-16 Completed [facility] Vaccine 00:00:00 [facility] PPD (TB) 2012-02-16 Completed [facility] 00:00:00 [facility] Pneumococcal 2012-02-16 Completed [facility] f Polysaccharide, 00:00:00 [place] [facility] PPSV23 (PNEUMOVAX) Branch Influenza Virus 2012-02-16 Completed [facility] Vaccine 00:00:00 [facility] PPD (TB) 2012-02-16 Completed [facility] 00:00:00 [facility] Pneumococcal 2012-02-16 Completed [facility] f Polysaccharide, 00:00:00 [place] [facility] PPSV23 (PNEUMOVAX) Branch Influenza Virus 2012-02-16 Completed [facility] Vaccine 00:00:00 [facility] PPD (TB) 2012-02-16 Completed [facility] 00:00:00 [facility] Pneumococcal 2012-02-16 Completed [facility] f Polysaccharide, 00:00:00 [place] [facility] PPSV23 (PNEUMOVAX) Branch Influenza Virus 2012-02-16 Completed [facility] Vaccine 00:00:00 [facility] PPD (TB) 2012-02-16 Completed [facility] 00:00:00 [facility] Pneumococcal 2012-02-16 Completed [facility] f Polysaccharide, 00:00:00 [place] [facility] PPSV23 (PNEUMOVAX) Branch Influenza Virus 2012-02-16 Completed [facility] Vaccine 00:00:00 [facility] PPD (TB) 2012-02-16 Completed [facility] 00:00:00 [facility] Pneumococcal 2012-02-16 Completed [facility] f Polysaccharide, 00:00:00 [place] [facility] PPSV23 (PNEUMOVAX) Branch Influenza Virus 2012-02-16 Completed [facility] Vaccine 00:00:00 [facility] PPD (TB) 2012-02-16 Completed [facility] 00:00:00 [facility] Hep B, Adol or Pedi 2011-09-01 [...] Unive [facility] of Dosage 00:00:00 [facility] Influenza Virus 2011-02-10 Completed [facility] Vaccine 00:00:00 [facility] Hep B, Adol or Pedi 2011-02-10 Completed [facility] Dosage 00:00:00 [facility] Influenza Virus 2011-02-10 Completed [facility] Vaccine 00:00:00 [facility] Hep B, Adol or Pedi 2011-02-10 Completed [facility] of Dosage 00:00:00 [facility] Influenza Virus 2011-02-10 Completed [facility] Vaccine 00:00:00 [facility] Hep B, Adol or Pedi 2011-02-10 Completed [facility] of Dosage 00:00:00 [facility] Influenza Virus 2011-02-10 Completed [facility] Vaccine 00:00:00 [facility] Hep B, Adol or Pedi 2011-02-10 Completed [facility] of Dosage 00:00:00 [facility] Influenza Virus 2011-02-10 Completed [facility] Vaccine 00:00:00 [facility] Hep B, Adol or Pedi 2011-02-10 Completed [facility] of Dosage 00:00:00 [facility] Influenza Virus 2011-02-10 Completed [facility] Vaccine 00:00:00 [facility] Hep B, Adol or Pedi 2011-02-10 Completed [facility] of Dosage 00:00:00 [facility] Influenza Virus 2011-02-10 Completed [facility] Vaccine 00:00:00 [facility] Hep B, Adol or Pedi 2011-02-10 Completed [facility] of Dosage 00:00:00 [facility] Influenza Virus 2011-02-10 Completed [facility] Vaccine 00:00:00 [facility] Hep B, Adol or Pedi 2011-02-10 Completed [facility] of Dosage 00:00:00 [facility] Influenza Virus 2011-02-10 Completed [facility] Vaccine 00:00:00 [facility] Hep B, Adol or Pedi 2011-02-10 Completed [facility] Dosage 00:00:00 [facility] Influenza Virus 2011-02-10 Completed [facility] Vaccine 00:00:00 [facility] Hep B, Adol or Pedi 2011-02-10 Completed [facility] of Dosage 00:00:00 [facility] Influenza Virus 2011-02-10 Completed [facility] Vaccine 00:00:00 [facility] Hep B, Adol or Pedi 2011-02-10 Completed [facility] Dosage 00:00:00 [facility] Influenza Virus 2011-02-10 Completed [facility] Vaccine 00:00:00 [facility] Hep B, Adol or Pedi 2011-02-10 Completed [facility] Dosage 00:00:00 [facility] Influenza Virus 2011-02-10 Completed [facility] Vaccine 00:00:00 [facility] Hep B, Adol or Pedi 2011-02-10 Completed [facility] Dosage 00:00:00 [facility] Influenza Virus 2011-02-10 Completed [facility] Vaccine 00:00:00 [facility] Hep B, Adol or Pedi 2011-02-10 Completed [facility] of Dosage 00:00:00 [facility] Influenza Virus 2011-02-10 Completed [facility] Vaccine 00:00:00 [facility] Hep B, Adol or Pedi 2011-02-10 Completed [facility] of Dosage 00:00:00 [facility] Influenza Virus 2011-02-10 Completed [facility] Vaccine 00:00:00 [facility] Hep B, Adol or Pedi 2011-02-10 Completed [facility] Dosage 00:00:00 [facility] Influenza Virus 2011-02-10 Completed [facility] Vaccine 00:00:00 [facility] Hep B, Adol or Pedi 2011-02-10 Completed [facility] Dosage 00:00:00 [facility] Influenza Virus 2011-02-10 Completed [facility] Vaccine 00:00:00 [facility] Hep B, Adol or Pedi 2011-02-10 Completed [facility] Dosage 00:00:00 [facility] PPD (TB) 2010-11-18 Completed [facility] 00:00:00 [facility] TDAP (ADACEL) 2010-11-18 Completed [facility] of VACCINE 00:00:00 [facility] PPD (TB) 2010-11-18 Completed [facility] 00:00:00 [facility] TDAP (ADACEL) 2010-11-18 Completed [facility] of VACCINE 00:00:00 [facility] PPD (TB) 2010-11-18 Completed [facility] 00:00:00 [facility] TDAP (ADACEL) 2010-11-18 Completed [facility] of VACCINE 00:00:00 [facility] PPD (TB) 2010-11-18 Completed [facility] 00:00:00 [facility] TDAP (ADACEL) 2010-11-18 Completed [facility] of VACCINE 00:00:00 [facility] PPD (TB) 2010-11-18 Completed [facility] 00:00:00 [facility] TDAP (ADACEL) 2010-11-18 Completed [facility] of VACCINE 00:00:00 [facility] PPD (TB) 2010-11-18 Completed [facility] 00:00:00 [facility] TDAP (ADACEL) 2010-11-18 Completed [facility] of VACCINE 00:00:00 [facility] PPD (TB) 2010-11-18 Completed [facility] 00:00:00 [facility] TDAP (ADACEL) 2010-11-18 Completed [facility] of VACCINE 00:00:00 [facility] PPD (TB) 2010-11-18 Completed [facility] of 00:00:00 [facility] TDAP (ADACEL) 2010-11-18 Completed [facility] of VACCINE 00:00:00 [facility] PPD (TB) 2010-11-18 Completed [facility] of 00:00:00 [facility] TDAP (ADACEL) 2010-11-18 Completed [facility] of VACCINE 00:00:00 [facility] PPD (TB) 2010-11-18 Completed [facility] of 00:00:00 [facility] TDAP (ADACEL) 2010-11-18 Completed [facility] of VACCINE 00:00:00 [facility] PPD (TB) 2010-11-18 Completed [facility] of 00:00:00 [facility] TDAP (ADACEL) 2010-11-18 Completed [facility] of VACCINE 00:00:00 [facility] PPD (TB) 2010-11-18 Completed [facility] 00:00:00 [facility] TDAP (ADACEL) 2010-11-18 Completed [facility] of VACCINE 00:00:00 [facility] PPD (TB) 2010-11-18 Completed [facility] 00:00:00 [facility] TDAP (ADACEL) 2010-11-18 Completed [facility] of VACCINE 00:00:00 [facility] PPD (TB) 2010-11-18 Completed [facility] 00:00:00 [facility] TDAP (ADACEL) 2010-11-18 Completed [facility] of VACCINE 00:00:00 [facility] PPD (TB) 2010-11-18 Completed [facility] of 00:00:00 [facility] TDAP (ADACEL) 2010-11-18 Completed [facility] of VACCINE 00:00:00 [facility] PPD (TB) 2010-11-18 Completed [facility] of 00:00:00 [facility] TDAP (ADACEL) 2010-11-18 Completed [facility] of VACCINE 00:00:00 [facility] PPD (TB) 2010-11-18 Completed [facility] of 00:00:00 [facility] TDAP (ADACEL) 2010-11-18 Completed [facility] of VACCINE 00:00:00 [facility] PPD (TB) 2010-11-18 Completed [facility] of 00:00:00 [facility] TDAP (ADACEL) 2010-11-18 Completed [facility] of VACCINE 00:00:00 [facility] HEPATITIS A 2004-03-02 Completed [facility] of 00:00:00 [facility] HEPATITIS A 2004-03-02 Completed [facility] 00:00:00 [facility] HEPATITIS A 2004-03-02 Completed [facility] of 00:00:00 [facility] HEPATITIS A 2004-03-02 Completed [facility] 00:00:00 [facility] HEPATITIS A 2004-03-02 Completed [facility] 00:00:00 [facility] HEPATITIS A 2004-03-02 Completed [facility] 00:00:00 [facility] HEPATITIS A 2004-03-02 Completed [facility] of 00:00:00 [facility] HEPATITIS A 2004-03-02 Completed [facility] of 00:00:00 [facility] HEPATITIS A 2004-03-02 Completed [facility] of 00:00:00 [facility] HEPATITIS A 2004-03-02 Completed [facility] 00:00:00 [facility] HEPATITIS A 2004-03-02 Completed [facility] 00:00:00 [facility] HEPATITIS A 2004-03-02 Completed [facility] 00:00:00 [facility] HEPATITIS A 2004-03-02 Completed [facility] of 00:00:00 [facility] HEPATITIS A 2004-03-02 Completed [facility] of 00:00:00 [facility] HEPATITIS A 2004-03-02 Completed [facility] 00:00:00 [facility] HEPATITIS A 2004-03-02 Completed [facility] 00:00:00 [facility] HEPATITIS A 2004-03-02 Completed [facility] 00:00:00 [facility] HEPATITIS A 2004-03-02 Completed [facility] 00:00:00 [facility] HEPATITIS A 2003-08-01 Completed [facility] 00:00:00 [facility] HEPATITIS A 2003-08-01 Completed [facility] 00:00:00 [facility] HEPATITIS A 2003-08-01 Completed [facility] 00:00:00 [facility] HEPATITIS A 2003-08-01 Completed [facility] of 00:00:00 [facility] HEPATITIS A 2003-08-01 Completed [facility] of 00:00:00 [facility] HEPATITIS A 2003-08-01 Completed [facility] 00:00:00 [facility] HEPATITIS A 2003-08-01 Completed [facility] of 00:00:00 [facility] HEPATITIS A 2003-08-01 Completed [facility] of 00:00:00 [facility] HEPATITIS A 2003-08-01 Completed [facility] of 00:00:00 [facility] HEPATITIS A 2003-08-01 Completed [facility] of 00:00:00 [facility] HEPATITIS A 2003-08-01 Completed [facility] of 00:00:00 [facility] HEPATITIS A 2003-08-01 Completed [facility] of 00:00:00 [facility] HEPATITIS A 2003-08-01 Completed [facility] of 00:00:00 [facility] HEPATITIS A 2003-08-01 Completed [facility] of 00:00:00 [facility] HEPATITIS A 2003-08-01 Completed [facility] of 00:00:00 [facility] HEPATITIS A 2003-08-01 Completed [facility] of 00:00:00 [facility] HEPATITIS A 2003-08-01 Completed [facility] of 00:00:00 [facility] HEPATITIS A 2003-08-01 Completed [facility] of 00:00:00 [facility] Pneumococcal 2001-10-04 Completed University o f Polysaccharide, 00:00:00 [place] [facility] PPSV23 (PNEUMOVAX) [facility] PPD (TB) 2001-10-04 Completed [facility] of 00:00:00 [facility] Pneumococcal 2001-10-04 Completed University o f Polysaccharide, 00:00:00 [place] [facility] PPSV23 (PNEUMOVAX) Branch PPD (TB) 2001-10-04 Completed [facility] of 00:00:00 [facility] Pneumococcal 2001-10-04 Completed University o f Polysaccharide, 00:00:00 [place] [facility] PPSV23 (PNEUMOVAX) Branch PPD (TB) 2001-10-04 Completed [facility] of 00:00:00 [facility] Pneumococcal 2001-10-04 Completed University o f Polysaccharide, 00:00:00 [place] [facility] PPSV23 (PNEUMOVAX) Branch PPD (TB) 2001-10-04 Completed [facility] of 00:00:00 [facility] Pneumococcal 2001-10-04 Completed University o f Polysaccharide, 00:00:00 [place] [facility] PPSV23 (PNEUMOVAX) Branch PPD (TB) 2001-10-04 Completed [facility] of 00:00:00 [facility] Pneumococcal 2001-10-04 Completed University o f Polysaccharide, 00:00:00 [place] [facility] PPSV23 (PNEUMOVAX) Branch PPD (TB) 2001-10-04 Completed [facility] of 00:00:00 [facility] Pneumococcal 2001-10-04 Completed University o f Polysaccharide, 00:00:00 [place] [facility] PPSV23 (PNEUMOVAX) Branch PPD (TB) 2001-10-04 Completed [facility] of 00:00:00 [facility] Pneumococcal 2001-10-04 Completed University o f Polysaccharide, 00:00:00 [place] [facility] PPSV23 (PNEUMOVAX) Branch PPD (TB) 2001-10-04 Completed [facility] of 00:00:00 [facility] Pneumococcal 2001-10-04 Completed University o f Polysaccharide, 00:00:00 [place] [facility] PPSV23 (PNEUMOVAX) Branch PPD (TB) 2001-10-04 Completed [facility] 00:00:00 [facility] Pneumococcal 2001-10-04 Completed University o f Polysaccharide, 00:00:00 [place] [facility] PPSV23 (PNEUMOVAX) Branch PPD (TB) 2001-10-04 Completed [facility] 00:00:00 [facility] Pneumococcal 2001-10-04 Completed University o f Polysaccharide, 00:00:00 [place] [facility] PPSV23 (PNEUMOVAX) Branch PPD (TB) 2001-10-04 Completed [facility] of 00:00:00 [facility] Pneumococcal 2001-10-04 Completed University o f Polysaccharide, 00:00:00 [place] [facility] PPSV23 (PNEUMOVAX) Branch PPD (TB) 2001-10-04 Completed [facility] of 00:00:00 [facility] Pneumococcal 2001-10-04 Completed University o f Polysaccharide, 00:00:00 [place] [facility] PPSV23 (PNEUMOVAX) Branch PPD (TB) 2001-10-04 Completed [facility] of 00:00:00 [facility] Pneumococcal 2001-10-04 Completed University o f Polysaccharide, 00:00:00 [place] [facility] PPSV23 (PNEUMOVAX) Branch PPD (TB) 2001-10-04 Completed [facility] of 00:00:00 [facility] Pneumococcal 2001-10-04 Completed University o f Polysaccharide, 00:00:00 [place] [facility] PPSV23 (PNEUMOVAX) Branch PPD (TB) 2001-10-04 Completed [facility] of 00:00:00 [facility] Pneumococcal 2001-10-04 Completed University o f Polysaccharide, 00:00:00 [place] [facility] PPSV23 (PNEUMOVAX) Branch PPD (TB) 2001-10-04 Completed [facility] of 00:00:00 [facility] Pneumococcal 2001-10-04 Completed University o f Polysaccharide, 00:00:00 [place] [facility] PPSV23 (PNEUMOVAX) Branch PPD (TB) 2001-10-04 Completed [facility] of 00:00:00 [facility] Pneumococcal 2001-10-04 Completed University o f Polysaccharide, 00:00:00 [place] [facility] PPSV23 (PNEUMOVAX) Branch PPD (TB) 2001-10-04 Completed [facility] 00:00:00 [facility] Vital Signs Vital Name Observation Time Observation Value Comments Source Systolic blood 2022-05-10 22:00:00 159 mm[Hg] [facility] Diastolic blood 2022-05-10 22:00:00 87 mm[Hg] Unive rsity of [facility] Heart rate 2022-05-10 22:00:00 56 /min [facility] Body temperature 2022-05-10 22:00:00 36.61 Amina [facility] rate 2022-05-10 22:00:00 17 /min [facility] Oxygen saturation in 2022-05-10 22:00:00 98 /min [facility] Arterial blood by [facility] Pulse oximetry Branch Body weight 2022-05-10 16:29:00 78.926 kg [facility] BMI 2022-05-10 16:29:00 29.87 kg/m2 [facility] Systolic blood 2022-05-08 22:30:00 168 mm[Hg] Univer sity of pressure [facility] Diastolic blood 2022-05-08 22:30:00 85 mm[Hg] Unive rsity of [facility] Heart rate 2022-05-08 22:30:00 68 /min [facility] Oxygen saturation in 2022-05-08 22:30:00 100 /min University of Arterial blood by [facility] Pulse oximetry Branch Body temperature 2022-05-08 22:22:00 35.89 Amina [facility] [place] [facility] Respiratory rate 2022-05-08 22:22:00 14 /min [facility] Body weight 2022-05-08 22:22:00 78.926 kg [facility] [place] [facility] BMI 2022-05-08 22:22:00 29.87 kg/m2 [facility] [place] [facility] Systolic blood 2022-05-07 00:00:00 149 mm[Hg] Univer sity of [facility] Diastolic blood 2022-05-07 00:00:00 132 mm[Hg] Unive rsity of [facility] Heart rate 2022-05-07 00:00:00 59 /min [facility] [place] [facility] Respiratory rate 2022-05-07 00:00:00 14 /min [facility] [place] [facility] Oxygen saturation in 2022-05-07 00:00:00 99 /min University of Arterial blood by [facility] Pulse oximetry Branch Body temperature 2022-05-06 20:12:00 36.5 Amina [facility] [place] [facility] Body height 2022-05-06 20:12:00 162.6 cm [facility] [place] [facility] Body weight 2022-05-06 20:12:00 78.926 kg [facility] [place] [facility] BMI 2022-05-06 20:12:00 29.87 kg/m2 [facility] [place] [facility] Systolic blood 2022-04-22 19:50:00 156 mm[Hg] Univer sity of [facility] Diastolic blood 2022-04-22 19:50:00 89 mm[Hg] Unive rsity of [facility] Heart rate 2022-04-22 19:50:00 69 [...] Arterial blood by [facility] Pulse oximetry Branch Systolic blood 2022-03-05 15:23:00 [...] Arterial blood by [facility] Pulse oximetry Branch Body height 2022-02-11 16:02:00 162.6 cm [facility] [place] [facility] Body weight 2022-02-11 16:02:00 79.379 kg [facility] [place] [facility] BMI 2022-02-11 16:02:00 30.04 kg/m2 [facility] [place] [facility] Systolic blood 2021-11-20 13:47:00 165 mm[Hg] Univer sity of [facility] Diastolic blood 2021-11-20 13:47:00 83 mm[Hg] Unive rsity of pressure [facility] Heart rate 2021-11-20 13:47:00 58 /min [facility] [place] [facility] Body temperature 2021-11-20 13:42:00 36.39 Amina [facility] [place] [facility] Respiratory rate 2021-11-20 13:42:00 16 /min [facility] [place] [facility] Body height 2021-11-20 13:42:00 162.6 cm [facility] Body weight 2021-11-20 13:42:00 84.369 kg [facility] [place] [facility] BMI 2021-11-20 13:42:00 31.93 kg/m2 Universi ty of [facility] Systolic blood 2021-07-14 [...] 2022-03-05 15:18:00 36.67 Amina Univ ersity of [facility] Respiratory rate 2022-03-05 15:18:00 18 /min [facility] [place] [facility] Body height 2022-03-05 15:18:00 162.6 cm [facility] [place] [facility] Body weight 2022-03-05 15:18:00 74.707 kg [facility] [place] [facility] BMI 2022-03-05 15:18:00 28.27 kg/m2 [facility] Oxygen saturation in 2022-02-16 21:41:00 98 /min University Arterial blood by [facility] Pulse oximetry Branch Systolic blood 2020-12-08 15:48:00 125 mm[Hg] Method [facility] pressure Diastolic blood 2020-12-08 15:48:00 76 mm[Hg] [facility] pressure Heart rate 2020-12-08 15:48:00 64 /min [facility] Body temperature 2020-12-08 15:48:00 36.61 Amina [facility] Respiratory rate 2020-12-08 15:48:00 17 /min [facility] Body height 2020-12-08 15:48:00 162.6 cm [facility] Body weight 2020-12-08 15:48:00 98.884 kg [facility] BMI 2020-12-08 15:48:00 37.42 kg/m2 [facility] Oxygen saturation in 2020-12-08 15:48:00 97 /min [facility] Arterial blood by Pulse oximetry Respitory Rate 2020-08-30 13:00:00 Memori al Marty Systolic (mm Hg) 2020-08-30 13:00:00 Caesar rial [place] Diastolic (mm Hg) 2020-08-30 13:00:00 Mem orial Marty Systolic (mm Hg) 2020-08-30 11:00:00 Caesar rial [place] Diastolic (mm Hg) 2020-08-30 11:00:00 Mem orial [place] Temperature Oral (F) 2020-08-30 11:00:00 98.4 F [facility] [place] Respitory Rate 2020-08-30 11:00:00 Memori al [place] Respitory Rate 2020-08-30 10:00:00 Memori al Marty Systolic (mm Hg) 2020-08-30 10:00:00 Caesar rial [place] Diastolic (mm Hg) 2020-08-30 10:00:00 Mem orial Marty Temperature Oral (F) 2020-08-30 00:00:00 96.9 F [facility] Temperature Oral (F) 2020-08-29 11:26:00 97.6 F [facility] [place] Height 2020-08-29 10:30:00 162.56 cm [facility] Weight 2020-08-29 10:30:00 [facility] BMI Calculated 2020-08-29 10:30:00 Darien Hammond Procedures Procedure Date / Time Performing Clinician Source Performed URINALYSIS 2022-05-10 19:36:00 Home Matthews [facility] TROPONIN I 2022-05-10 18:34:00 Home Matthews [facility] COMP. METABOLIC PANEL 2022-05-10 18:34:00 Home Matthews [facility] ([id number]) [facility] CBC WITH DIFF 2022-05-10 18:34:00 Home Matthews [facility] XR CHEST 2 VW 2022-05-10 17:24:58 Home Matthews [facility] CONSENT/REFUSAL FOR 2022-05-10 16:26:23 Doctor Unasimone [facility] DIAGNOSIS AND TREATMENT [place] [facility] CONSENT/REFUSAL FOR 2022-05-10 16:26:09 Doctor Unasimone, [facility] DIAGNOSIS AND TREATMENT [place] [facility] URINALYSIS 2022-05-08 22:43:00 Theresa Hickman [facility] XR CHEST 2 VW 2022-05-06 22:56:53 Anette Olea [facility] COMP. METABOLIC PANEL 2022-05-06 22:14:00 Anette Olea [facility] ([id number]) Medical Branch CBC WITH DIFF 2022-05-06 22:14:00 Anette Olea [facility] COVID-19 (ID NOW RAPID 2022-05-06 22:14:00 Anette Olea [facility] TESTING) Medical Branch BASIC METABOLIC PANEL (NA, 2022-04-22 21:23:00 Paulette Gray [facility] K, CL, CO2, GLUCOSE, BUN, Medica l Branch CREATININE, CA) CBC WITH DIFF 2022-04-22 21:23:00 Paulette Gray [facility] CONSENT/REFUSAL FOR 2022-04-22 19:45:46 Doctor Unassigned, [facility] DIAGNOSIS AND TREATMENT [place] Medical Branch SARS-COV-2 COVID-19 2022-03-05 16:09:27 [facility] DIMITRIS-SUCROSE VACCINE 12 [facility] YRS+, BIVALENT 0.3ML, IM, (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) FLU 2022-03-05 16:09[facility]27 [facility]65+[facility]0.5 Medica l Branch ML,IM,ADJUVANTED,QUAD(FLUA D) FLU 2022-03-05 16:09:27 [facility] V[facility](),65+YR,0.5 Medica l Branch ML,IM,ADJUVANTED,QUAD(FLUA D) SARS-COV-2 COVID-19 2022-03-05 16:09:27 [facility] DIMITRIS-SUCROSE VACCINE 12 [facility] YRS+, BIVALENT 0.3ML, IM, (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) MAGNESIUM 2022-02-15 09:41:00 Radha Sofia [facility] BASIC METABOLIC PANEL (NA, 2022-02-15 09:41:00 Radha [facility] K, CL, CO2, GLUCOSE, BUN, Medica l Branch CREATININE, CA) CBC WITH DIFF 2022-02-15 09:41:00 Radha [facility] N-TERMINAL PRO-BNP 2022-02-15 09:41:00 Sofia Garcia [facility] CBC WITH DIFF 2022-02-15 09:41:00 Radha Sofia [facility] BASIC METABOLIC PANEL (NA, 2022-02-15 09:41:00 Radha Sofia [facility] K, CL, CO2, GLUCOSE, BUN, Medica l Branch CREATININE, CA) MAGNESIUM 2022-02-15 09:41:00 Radha [facility] N-TERMINAL PRO-BNP 2022-02-15 09:41:00 Sofia Garcia [facility] BASIC METABOLIC PANEL (NA, 2022-02-13 09:40:00 Sofia Garcia [facility] K, CL, CO2, GLUCOSE, BUN, Medica l Branch CREATININE, CA) CBC WITH DIFF 2022-02-13 09:40:00 Radha [facility] BASIC METABOLIC PANEL (NA, 2022-02-13 09:40:00 Radha [facility] K, CL, CO2, GLUCOSE, BUN, [facility] CREATININE, CA) CBC WITH DIFF 2022-02-13 09:40:00 Radha [facility] TROPONIN I 2022-02-11 23:41:00 Radha [facility] N-TERMINAL PRO-BNP 2022-02-11 23:41:00 Radha [facility] TROPONIN I 2022-02-11 23:41:00 Radha [facility] N-TERMINAL PRO-BNP 2022-02-11 23:41:00 Radha [facility] HB ECG ROUTINE & RHYTHM 2022-02-11 22:15:36 [facility] TRANSTHORACIC ECHO (TTE) 2022-02-11 21:26:50 [facility]TTE) 2022-02-11 21:26:50 [facility]BD[facility] PELVIS W 2022-02-11 07:45:43 Reilly Means [facility] CT ABDOMEN PELVIS W 2022-02-11 07:45:43 Reilly Means [facility] RAPID INFLUENZA A/B 2022-02-11 06:54:00 Reilly Means [facility] RAPID INFLUENZA A/B 2022-02-11 06:54:00 Reilly Means [facility] URINALYSIS 2022-02-11 06:45:00 Reilly Means [facility] URINE CULTURE 2022-02-11 06:45:00 Reilly Means [facility] URINALYSIS 2022-02-11 06:45:00 Reilly Means [facility] URINE CULTURE 2022-02-11 06:45:00 Reilly Means [facility] HB ECG ROUTINE & RHYTHM 2022-02-11 05:22:[address] [facility] HB ECG ROUTINE & RHYTHM 2022-02-11 05:22:[address] [facility] BLOOD CULTURE SCREEN 2022-02-11 04:58:00 Reilly Means [facility] TROPONIN I 2022-02-11 04:58:00 Reilly Means [facility] COMP. METABOLIC PANEL 2022-02-11 04:58:00 Reilly Means [facility] ([id number]) Medical Branch CBC WITH DIFF 2022-02-11 04:58:00 Reilly Means [facility] PROTHROMBIN TIME / INR 2022-02-11 04:58:00 Reilly Means [facility] ACTIVATED PARTIAL THRMPLAS 2022-02-11 04:58:00 Reilly Means [facility] N-TERMINAL PRO-BNP 2022-02-11 04:58:00 Reilly Means [facility] LACTIC ACID WHOLE BLOOD 2022-02-11 04:58:00 Reilly Means [facility] COVID-19 (ID NOW RAPID 2022-02-11 04:58:00 Reilly Means [facility] TESTING) Medical Branch LAB ONLY COVID 2022-02-11 04:58:00 Reilly Means [facility] CBC WITH DIFF 2022-02-11 04:58:00 Reilly eMans [facility] ACTIVATED PARTIAL THRMPLAS 2022-02-11 04:58:00 Reilly Means [facility] PROTHROMBIN TIME / INR 2022-02-11 04:58:00 Reilly Means [facility] COVID-19 (ID NOW RAPID 2022-02-11 04:58:00 Reilly Means [facility] TESTING) Medical Branch COMP. METABOLIC PANEL 2022-02-11 04:58:00 Reilly Means [facility] ([id number]) Medical Branch TROPONIN I 2022-02-11 04:58:00 Reilly Means [facility] N-TERMINAL PRO-BNP 2022-02-11 04:58:00 Reilly Means [facility] BLOOD CULTURE SCREEN 2022-02-11 04:58:00 Reilly Means [facility] LACTIC ACID WHOLE BLOOD 2022-02-11 04:58:00 Reilly Means [facility] LAB ONLY COVID 2022-02-11 04:58:00 Reilly Means [facility] INTERPRETATION [facility] XR CHEST 1 VW 2022-02-11 04:27:42 Miguelangel Reilly [facility] XR CHEST 1 VW 2022-02-11 04:27:42 Reilly Means [facility] HOSPITAL ADMISSION 2022-02-10 05:01:00 Doctor Unassigned, [facility] Name [facility] HOSPITAL ADMISSION 2022-02-10 05:01:00 Doctor Unassigned, [facility] ECG 12-LEAD 2021-07-14 15:14:00 Elan Lira [facility] [id number] 2021-06-17 00:00:00 RASSA [facility] GASTROINTESTINAL PANEL 2020-12-08 22:21:00 Jailyn [facility] XR ABDOMEN 1 VW 2020-12-08 18:06:32 Eliseo Arce spital [place] < 1 HOUR 2020-09-05 22:39:00 Eliseo Arce spital SURGICAL PATHOLOGY REQUEST 2020-09-05 21:54:00 Eliseo Arce [facility] XR CHEST 1 VW PORTABLE 2020-09-05 19:55:00 Eliseo Arce [facility] Hospital DISCHARGE PATIENT 2020-09-05 17:27:55 Lucas Harris [facility] [place] AN ELECTIVE 2020-09-05 16:47:23 Kirit Flood [facility] ENDOTRACHEAL AIRWAY EGD, INTRAOPERATIVE 2020-09-05 16:27[facility]00 [facility] 2020-09-05 15:04:00 Sarai Maharaj [facility] TIME (PTT) M. PROTHROMBIN TIME WITH INR 2020-09-05 15:04:00 Mindy Maharaj [facility] M. Plan of Care Planned Activity Planned Date Details Comments Source Future Scheduled 2022-08-06 SHINGLES VACCINES (1 Met [facility] Test 15:48:02 of 2) [code = SHINGLES VACCINES (1 of 2)] Future Scheduled 2022-08-06 BREAST CANCER [facility] Test 15:48:02 SCREENING [code = BREAST CANCER SCREENING] Future Scheduled 2022-08-06 COLONOSCOPY SCREENING [facility] Test 15:48:02 [code = COLONOSCOPY SCREENING] Future Scheduled 2022-08-06 HEPATITIS B VACCINES Met [facility] Test 15:48:02 (1 of 3 - Risk 3-dose series) [code = HEPATITIS B VACCINES (1 of 3 - Risk 3-dose series)] Future Scheduled 2022-08-06 COVID-19 VACCINE (3 - [facility] Test 15:48:02 Booster for Pfizer series) [code = COVID-19 VACCINE (3 - Booster for Pfizer series)] Future Scheduled 2022-08-06 65+ PNEUMOCOCCAL [facility] Test 15:48:02 VACCINE (4 - PPSV23 if available, else PCV20) [code = 65+ PNEUMOCOCCAL VACCINE (4 - PPSV23 if available, else PCV20)] Future Scheduled 2022-08-06 INFLUENZA VACCINE Method [facility] Test 15:48:02 [code = INFLUENZA VACCINE] Future Scheduled 2022-06-11 SHINGLES VACCINES (1 Met [facility] Test 16:10:12 of 2) [code = SHINGLES VACCINES (1 of 2)] Future Scheduled 2022-06-11 BREAST CANCER [facility] Test 16:10:12 SCREENING [code = BREAST CANCER SCREENING] Future Scheduled 2022-06-11 COLONOSCOPY SCREENING [facility] Test 16:10:12 [code = COLONOSCOPY SCREENING] Future Scheduled 2022-06-11 HEPATITIS B VACCINES Met [facility] Test 16:10:12 (1 of 3 - Risk 3-dose series) [code = HEPATITIS B VACCINES (1 of 3 - Risk 3-dose series)] Future Scheduled 2022-06-11 COVID-19 VACCINE (3 - [facility] Test 16:10:12 Booster for Pfizer series) [code = COVID-19 VACCINE (3 - Booster for Pfizer series)] Future Scheduled 2022-06-11 65+ PNEUMOCOCCAL [facility] Test 16:10:12 VACCINE (4 - PPSV23 if available, else PCV20) [code = 65+ PNEUMOCOCCAL VACCINE (4 - PPSV23 if available, else PCV20)] Future Scheduled 2022-06-11 INFLUENZA VACCINE Method [facility] Test 16:10:12 [code = INFLUENZA VACCINE] Future Scheduled 2022-06-11 SHINGLES VACCINES (1 Met [facility] Test 16:10:12 of 2) [code = SHINGLES VACCINES (1 of 2)] Future Scheduled 2022-06-11 BREAST CANCER [facility] Test 16:10:12 SCREENING [code = BREAST CANCER SCREENING] Future Scheduled 2022-06-11 COLONOSCOPY SCREENING [facility] Test 16:10:12 [code = COLONOSCOPY SCREENING] Future Scheduled 2022-06-11 HEPATITIS B VACCINES Met [facility] Test 16:10:12 (1 of 3 - Risk 3-dose series) [code = HEPATITIS B VACCINES (1 of 3 - Risk 3-dose series)] Future Scheduled 2022-06-11 COVID-19 VACCINE (3 - [facility] Test 16:10:12 Booster for Pfizer series) [code = COVID-19 VACCINE (3 - Booster for Pfizer series)] Future Scheduled 2022-06-11 65+ [facility] Test 16:10:12 VACCINE (4 - PPSV23 if available, else PCV20) [code = 65+ PNEUMOCOCCAL VACCINE (4 - PPSV23 if available, else PCV20)] Future Scheduled 2022-06-11 INFLUENZA VACCINE Method [facility] Test 16:10:12 [code = INFLUENZA VACCINE] Future Scheduled 2022-06-11 SHINGLES VACCINES (1 Met [facility] Test 16:10:12 of 2) [code = SHINGLES VACCINES (1 of 2)] Future Scheduled 2022-06-11 BREAST CANCER [facility] Test 16:10:12 SCREENING [code = BREAST CANCER SCREENING] Future Scheduled 2022-06-11 COLONOSCOPY SCREENING [facility] Test 16:10:12 [code = COLONOSCOPY SCREENING] Future Scheduled 2022-06-11 HEPATITIS B VACCINES Met [facility] Test 16:10:12 (1 of 3 - Risk 3-dose series) [code = HEPATITIS B VACCINES (1 of 3 - Risk 3-dose series)] Future Scheduled 2022-06-11 COVID-19 VACCINE (3 - [facility] Test 16:10:12 Booster for Pfizer series) [code = COVID-19 VACCINE (3 - Booster for Pfizer series)] Future Scheduled 2022-06-11 65+ [facility] 16:10:12 VACCINE (4 - PPSV23 if available, else PCV20) [code = 65+ PNEUMOCOCCAL VACCINE (4 - PPSV23 if available, else PCV20)] Future Scheduled 2022-06-11 INFLUENZA VACCINE Method [facility] Test 16:10:12 [code = INFLUENZA VACCINE] Future Scheduled 2022-06-11 SHINGLES VACCINES (1 Met [facility] Test 16:10:12 of 2) [code = SHINGLES VACCINES (1 of 2)] Future Scheduled 2022-06-11 BREAST CANCER [facility] Test 16:10:12 SCREENING [code = BREAST CANCER SCREENING] Future Scheduled 2022-06-11 COLONOSCOPY SCREENING [facility] Test 16:10:12 [code = COLONOSCOPY SCREENING] Future Scheduled 2022-06-11 HEPATITIS B VACCINES Met [facility] Test 16:10:12 (1 of 3 - Risk 3-dose series) [code = HEPATITIS B VACCINES (1 of 3 - Risk 3-dose series)] Future Scheduled 2022-06-11 COVID-19 VACCINE (3 - Me [facility] Test 16:10:12 Booster for Pfizer series) [code = COVID-19 VACCINE (3 - Booster for Pfizer series)] Future Scheduled 2022-06-11 65+ [facility] Test 16:10:12 VACCINE (4 - PPSV23 if available, else PCV20) [code = 65+ PNEUMOCOCCAL VACCINE (4 - PPSV23 if available, else PCV20)] Future Scheduled 2022-06-11 INFLUENZA VACCINE Method [facility] Test 16:10:12 [code = INFLUENZA VACCINE] Future Scheduled 2022-06-11 SHINGLES VACCINES (1 Met [facility] Test 16:10:12 of 2) [code = SHINGLES VACCINES (1 of 2)] Future Scheduled 2022-06-11 BREAST CANCER [facility] Test 16:10:12 SCREENING [code = BREAST CANCER SCREENING] Future Scheduled 2022-06-11 COLONOSCOPY SCREENING [facility] Test 16:10:12 [code = COLONOSCOPY SCREENING] Future Scheduled 2022-06-11 HEPATITIS B VACCINES Met [facility] Test 16:10:12 (1 of 3 - Risk 3-dose series) [code = HEPATITIS B VACCINES (1 of 3 - Risk 3-dose series)] Future Scheduled 2022-06-11 COVID-19 VACCINE (3 - Me [facility] Test 16:10:12 Booster for Pfizer series) [code = COVID-19 VACCINE (3 - Booster for Pfizer series)] Future Scheduled 2022-06-11 65+ PNEUMOCOCCAL [facility] Test 16:10:12 VACCINE (4 - PPSV23 if available, else PCV20) [code = 65+ PNEUMOCOCCAL VACCINE (4 - PPSV23 if available, else PCV20)] Future Scheduled 2022-06-11 INFLUENZA VACCINE Method [facility] Test 16:10:12 [code = INFLUENZA VACCINE] Future Scheduled 2022-06-11 SHINGLES VACCINES (1 Met [facility] Test 16:10:12 of 2) [code = SHINGLES VACCINES (1 of 2)] Future Scheduled 2022-06-11 BREAST CANCER [facility] Test 16:10:12 SCREENING [code = BREAST CANCER SCREENING] Future Scheduled 2022-06-11 COLONOSCOPY SCREENING [facility] Test 16:10:12 [code = COLONOSCOPY SCREENING] Future Scheduled 2022-06-11 HEPATITIS B VACCINES Met [facility] Test 16:10:12 (1 of 3 - Risk 3-dose series) [code = HEPATITIS B VACCINES (1 of 3 - Risk 3-dose series)] Future Scheduled 2022-06-11 COVID-19 VACCINE (3 - Me [facility] Test 16:10:12 Booster for Pfizer series) [code = COVID-19 VACCINE (3 - Booster for Pfizer series)] Future Scheduled 2022-06-11 65+ [facility] Test 16:10:12 VACCINE (4 - PPSV23 if available, else PCV20) [code = 65+ PNEUMOCOCCAL VACCINE (4 - PPSV23 if available, else PCV20)] Future Scheduled 2022-06-11 INFLUENZA VACCINE Method [facility] Test 16:10:12 [code = INFLUENZA VACCINE] Future Scheduled 2022-06-11 SHINGLES VACCINES (1 Met [facility] Test 16:10:12 of 2) [code = SHINGLES VACCINES (1 of 2)] Future Scheduled 2022-06-11 BREAST CANCER [facility] Test 16:10:12 SCREENING [code = BREAST CANCER SCREENING] Future Scheduled 2022-06-[address] [facility] Test 16:10:12 [code = COLONOSCOPY SCREENING] Future Scheduled 2022-06-11 HEPATITIS B VACCINES Met [facility] Test 16:10:12 (1 of 3 - Risk 3-dose series) [code = HEPATITIS B VACCINES (1 of 3 - Risk 3-dose series)] Future Scheduled 2022-06-11 COVID-19 VACCINE (3 - Me [facility] Test 16:10:12 Booster for Pfizer series) [code = COVID-19 VACCINE (3 - Booster for Pfizer series)] Future Scheduled 2022-06-11 65[facility] 16:10:12 VACCINE (4 - PPSV23 if available, else PCV20) [code = 65+ PNEUMOCOCCAL VACCINE (4 - PPSV23 if available, else PCV20)] Future Scheduled 2022-06-11 INFLUENZA VACCINE Method [facility] Test 16:10:12 [code = INFLUENZA VACCINE] Future Scheduled 2022-06-11 SHINGLES VACCINES (1 Met [facility] Test 16:10:12 of 2) [code = SHINGLES VACCINES (1 of 2)] Future Scheduled 2022-06-11 BREAST CANCER [facility] Test 16:10:12 SCREENING [code = BREAST CANCER SCREENING] Future Scheduled 2022-06-11 COLONOSCOPY SCREENING [facility] Test 16:10:12 [code = COLONOSCOPY SCREENING] Future Scheduled 2022-06-11 HEPATITIS B VACCINES Met [facility] Test 16:10:12 (1 of 3 - Risk 3-dose series) [code = HEPATITIS B VACCINES (1 of 3 - Risk 3-dose series)] Future Scheduled 2022-06-11 COVID-19 VACCINE (3 - Me [facility] Test 16:10:12 Booster [...] 2022-06-11 SHINGLES VACCINES (1 Met [facility] Test 16:10:12 of 2) [code = SHINGLES VACCINES (1 of 2)] Future Scheduled 2022-06-11 BREAST CANCER [facility] Test 16:10:12 SCREENING [code = BREAST CANCER SCREENING] Future Scheduled 2022-06-11 COLONOSCOPY SCREENING [facility] Test 16:10:12 [code = COLONOSCOPY SCREENING] Future Scheduled 2022-06-11 HEPATITIS B VACCINES Met [facility] Test 16:10:12 (1 of 3 - Risk 3-dose series) [code = HEPATITIS B VACCINES (1 of 3 - Risk 3-dose series)] Future Scheduled 2022-06-11 COVID-19 VACCINE (3 - [facility] Test 16:10:12 Booster for Pfizer series) [code = COVID-19 VACCINE (3 - Booster for Pfizer series)] Future Scheduled 2022-06-11 65+ [facility] Test 16:10:12 VACCINE (4 - PPSV23 if available, else PCV20) [code = 65+ PNEUMOCOCCAL VACCINE (4 - PPSV23 if available, else PCV20)] Future Scheduled 2022-06-11 INFLUENZA VACCINE Method [facility] Test 16:10:12 [code = INFLUENZA VACCINE] Future Scheduled 2022-05-10 SHINGLES VACCINES (1 Met [facility] Test 10:21:35 of 2) [code = SHINGLES VACCINES (1 of 2)] Future Scheduled 2022-05-10 BREAST CANCER [facility] Test 10:21:35 SCREENING [code = BREAST CANCER SCREENING] Future Scheduled 2022-05-10 COLONOSCOPY SCREENING [facility] Test 10:21:35 [code = COLONOSCOPY SCREENING] Future Scheduled 2022-05-10 HEPATITIS B VACCINES Met [facility] Test 10:21:35 (1 of 3 - Risk 3-dose series) [code = HEPATITIS B VACCINES (1 of 3 - Risk 3-dose series)] Future Scheduled 2022-05-10 COVID-19 VACCINE (3 - [facility] Test 10:21:35 Booster for Pfizer series) [code = COVID-19 VACCINE (3 - Booster for Pfizer series)] Future Scheduled 2022-05-10 65+ [facility] Test 10:21:35 VACCINE (4 - PPSV23 if available, else PCV20) [code = 65+ PNEUMOCOCCAL VACCINE (4 - PPSV23 if available, else PCV20)] Future Scheduled 2022-05-10 INFLUENZA VACCINE Method [facility] Test 10:21:35 [code = INFLUENZA VACCINE] Future Scheduled 2022-05-10 SHINGLES VACCINES (1 Met [facility] Test 10:21:35 of 2) [code = SHINGLES VACCINES (1 of 2)] Future Scheduled 2022-05-10 BREAST CANCER [facility] Test 10:21:35 SCREENING [code = BREAST CANCER SCREENING] Future Scheduled 2022-05-10 COLONOSCOPY SCREENING [facility] Test 10:21:35 [code = COLONOSCOPY SCREENING] Future Scheduled 2022-05-10 HEPATITIS B VACCINES Met [facility] Test 10:21:35 (1 of 3 - Risk 3-dose series) [code = HEPATITIS B VACCINES (1 of 3 - Risk 3-dose series)] Future Scheduled 2022-05-10 COVID-19 VACCINE (3 - Me [facility] Test 10:21:35 Booster for Pfizer series) [code = COVID-19 VACCINE (3 - Booster for Pfizer series)] Future Scheduled 2022-05-10 65[facility] 10:21:35 VACCINE (4 - PPSV23 if available, else PCV20) [code = 65+ PNEUMOCOCCAL VACCINE (4 - PPSV23 if available, else PCV20)] Future Scheduled 2022-05-10 INFLUENZA VACCINE Method [facility] Test 10:21:35 [code = INFLUENZA VACCINE] Future Scheduled 2022-05-06 SHINGLES VACCINES (1 Met [facility] Test 14:03:13 of 2) [code = SHINGLES VACCINES (1 of 2)] Future Scheduled 2022-05-06 BREAST CANCER [facility] Test 14:03:13 SCREENING [code = BREAST CANCER SCREENING] Future Scheduled 2022-05-06 COLONOSCOPY SCREENING [facility] Test 14:03:13 [code = COLONOSCOPY SCREENING] Future Scheduled 2022-05-06 HEPATITIS B VACCINES Met [facility] Test 14:03:13 (1 of 3 - Risk 3-dose series) [code = HEPATITIS B VACCINES (1 of 3 - Risk 3-dose series)] Future Scheduled 2022-05-06 COVID-19 VACCINE (3 - Me [facility] Test 14:03:13 Booster for Pfizer series) [code = COVID-19 VACCINE (3 - Booster for Pfizer series)] Future Scheduled 2022-05-06 65+ PNEUMOCOCCAL [facility] Test 14:03:13 VACCINE (4 - PPSV23 if available, else PCV20) [code = 65+ PNEUMOCOCCAL VACCINE (4 - PPSV23 if available, else PCV20)] Future Scheduled 2022-05-06 INFLUENZA VACCINE Method [facility] Test 14:03:13 [code = INFLUENZA VACCINE] Future Scheduled 2022-04-30 SHINGLES VACCINES (1 Met [facility] Test 01:07:32 of 2) [code = SHINGLES VACCINES (1 of 2)] Future Scheduled 2022-04-30 BREAST CANCER [facility] Test 01:07:32 SCREENING [code = BREAST CANCER SCREENING] Future Scheduled 2022-04-30 COLONOSCOPY SCREENING [facility] Test 01:07:32 [code = COLONOSCOPY SCREENING] Future Scheduled 2022-04-30 HEPATITIS B VACCINES Met [facility] Test 01:07:32 (1 of 3 - Risk 3-dose series) [code = HEPATITIS B VACCINES (1 of 3 - Risk 3-dose series)] Future Scheduled 2022-04-30 COVID-19 VACCINE (3 - [facility] Test 01:07:32 Booster for Pfizer series) [code = COVID-19 VACCINE (3 - Booster for Pfizer series)] Future Scheduled 2022-04-30 65+ PNEUMOCOCCAL [facility] Test 01:07:32 VACCINE (4 - PPSV23 if available, else PCV20) [code = 65+ PNEUMOCOCCAL VACCINE (4 - PPSV23 if available, else PCV20)] Future Scheduled 2022-04-30 INFLUENZA VACCINE Method [facility] Test 01:07:32 [code = INFLUENZA VACCINE] Future Scheduled 2022-04-30 SHINGLES VACCINES (1 Met [facility] Test 01:07:32 of 2) [code = SHINGLES VACCINES (1 of 2)] Future Scheduled 2022-04-30 BREAST CANCER [facility] Test 01:07:32 SCREENING [code = BREAST CANCER SCREENING] Future Scheduled 2022-04-30 COLONOSCOPY SCREENING [facility] Test 01:07:32 [code = COLONOSCOPY SCREENING] Future Scheduled 2022-04-30 HEPATITIS B VACCINES Met [facility] Test 01:07:32 (1 of 3 - Risk 3-dose series) [code = HEPATITIS B VACCINES (1 of 3 - Risk 3-dose series)] Future Scheduled 2022-04-30 COVID-19 VACCINE (3 - Me [facility] Test 01:07:32 Booster for Pfizer series) [code = COVID-19 VACCINE (3 - Booster for Pfizer series)] Future Scheduled 2022-04-30 65+ PNEUMOCOCCAL [facility] Test 01:07:32 VACCINE (4 - PPSV23 if available, else PCV20) [code = 65+ PNEUMOCOCCAL VACCINE (4 - PPSV23 if available, else PCV20)] Future Scheduled 2022-04-30 INFLUENZA VACCINE [facility] Test 01:07:32 [code = INFLUENZA VACCINE] Future Scheduled 2022-04-30 SHINGLES VACCINES (1 Met [facility] Test 01:07:32 of 2) [code = SHINGLES VACCINES (1 of 2)] Future Scheduled 2022-04-30 BREAST CANCER [facility] Test 01:07:32 SCREENING [code = BREAST CANCER SCREENING] Future Scheduled 2022-04-30 COLONOSCOPY SCREENING [facility] Test 01:07:32 [code = COLONOSCOPY SCREENING] Future Scheduled 2022-04-30 HEPATITIS B VACCINES Met [facility] Test 01:07:32 (1 of 3 - Risk 3-dose series) [code = HEPATITIS B VACCINES (1 of 3 - Risk 3-dose series)] Future Scheduled 2022-04-30 COVID-19 VACCINE (3 - [facility] Test 01:07:32 Booster for Pfizer series) [code = COVID-19 VACCINE (3 - Booster for Pfizer series)] Future Scheduled 2022-04-30 65+ PNEUMOCOCCAL [facility] Test 01:07:32 VACCINE (4 - PPSV23 if available, else PCV20) [code = 65+ PNEUMOCOCCAL VACCINE (4 - PPSV23 if available, else PCV20)] Future Scheduled 2022-04-30 INFLUENZA VACCINE Method [facility] Test 01:07:32 [code = INFLUENZA VACCINE] Future Scheduled 2022-04-25 SHINGLES VACCINES (1 Met [facility] Test 01:45:02 of 2) [code = SHINGLES VACCINES (1 of 2)] Future Scheduled 2022-04-25 BREAST CANCER [facility] Test 01:45:02 SCREENING [code = BREAST CANCER SCREENING] Future Scheduled 2022-04-25 COLONOSCOPY SCREENING [facility] Test 01:45:02 [code = COLONOSCOPY SCREENING] Future Scheduled 2022-04-25 HEPATITIS B VACCINES Met [facility] Test 01:45:02 (1 of 3 - Risk 3-dose series) [code = HEPATITIS B VACCINES (1 of 3 - Risk 3-dose series)] Future Scheduled 2022-04-25 COVID-19 VACCINE (3 - [facility] Test 01:45:02 Booster for Pfizer series) [code = COVID-19 VACCINE (3 - Booster for Pfizer series)] Future Scheduled 2022-04-25 65+ [facility] Test 01:45:02 VACCINE (4 - PPSV23 if available, else PCV20) [code = 65+ PNEUMOCOCCAL VACCINE (4 - PPSV23 if available, else PCV20)] Future Scheduled 2022-04-25 INFLUENZA VACCINE Method [facility] Test 01:45:02 [code = INFLUENZA VACCINE] Future Scheduled 2022-03-25 SHINGLES VACCINES (1 Met [facility] Test 14:48:42 of 2) [code = SHINGLES VACCINES (1 of 2)] Future Scheduled 2022-03-25 BREAST CANCER [facility] Test 14:48:42 SCREENING [code = BREAST CANCER SCREENING] Future Scheduled 2022-03-25 COLONOSCOPY SCREENING [facility] Test 14:48:42 [code = COLONOSCOPY SCREENING] Future Scheduled 2022-03-25 HEPATITIS B VACCINES Met [facility] Test 14:48:42 (1 of 3 - Risk 3-dose series) [code = HEPATITIS B VACCINES (1 of 3 - Risk 3-dose series)] Future Scheduled 2022-03-25 COVID-19 VACCINE (3 - [facility] Test 14:48:42 Booster for Pfizer series) [code = COVID-19 VACCINE (3 - Booster for Pfizer series)] Future Scheduled 2022-03-25 65[facility] 14:48:42 VACCINE (4 - PPSV23 if available, else PCV20) [code = 65+ PNEUMOCOCCAL VACCINE (4 - PPSV23 if available, else PCV20)] Future Scheduled 2022-03-25 INFLUENZA VACCINE Method [facility] Test 14:48:42 [code = INFLUENZA VACCINE] Future Scheduled 2022-03-25 SHINGLES VACCINES (1 Met [facility] Test 14:48:42 of 2) [code = SHINGLES VACCINES (1 of 2)] Future Scheduled 2022-03-25 BREAST CANCER [facility] Test 14:48:42 SCREENING [code = BREAST CANCER SCREENING] Future Scheduled 2022-03-25 COLONOSCOPY SCREENING [facility] Test 14:48:42 [code = COLONOSCOPY SCREENING] Future Scheduled 2022-03-25 HEPATITIS B VACCINES Met [facility] Test 14:48:42 (1 of 3 - Risk 3-dose series) [code = HEPATITIS B VACCINES (1 of 3 - Risk 3-dose series)] Future Scheduled 2022-03-25 COVID-19 VACCINE (3 - Me [facility] Test 14:48:42 Booster for Pfizer series) [code = COVID-19 VACCINE (3 - Booster for Pfizer series)] Future Scheduled 2022-03-25 65+ [facility] 14:48:42 VACCINE (4 - PPSV23 if available, else PCV20) [code = 65+ PNEUMOCOCCAL VACCINE (4 - PPSV23 if available, else PCV20)] Future Scheduled 2022-03-25 INFLUENZA VACCINE Method [facility] Test 14:48:42 [code = INFLUENZA VACCINE] Future Scheduled 2022-03-25 SHINGLES VACCINES (1 Met [facility] Test 14:48:42 of 2) [code = SHINGLES VACCINES (1 of 2)] Future Scheduled 2022-03-25 BREAST CANCER [facility] Test 14:48:42 SCREENING [code = BREAST CANCER SCREENING] Future Scheduled 2022-03-25 COLONOSCOPY SCREENING [facility] Test 14:48:42 [code = COLONOSCOPY SCREENING] Future Scheduled 2022-03-25 HEPATITIS B VACCINES Met [facility] Test 14:48:42 (1 of 3 - Risk 3-dose series) [code = HEPATITIS B VACCINES (1 of 3 - Risk 3-dose series)] Future Scheduled 2022-03-25 COVID-19 VACCINE (3 - Me [facility] Test 14:48:42 Booster for Pfizer series) [code = COVID-19 VACCINE (3 - Booster for Pfizer series)] Future Scheduled 2022-03-25 65[facility] 14:48:42 VACCINE (4 - PPSV23 if available, else PCV20) [code = 65+ PNEUMOCOCCAL VACCINE (4 - PPSV23 if available, else PCV20)] Future Scheduled 2022-03-25 [facility] 14:48:42 [code = INFLUENZA VACCINE] Future Scheduled 2022-03-25 SHINGLES VACCINES (1 Met [facility] Test 14:48:42 of 2) [code = SHINGLES VACCINES (1 of 2)] Future Scheduled 2022-03-25 BREAST CANCER [facility] Test 14:48:42 SCREENING [code = BREAST CANCER SCREENING] Future Scheduled 2022-03-25 COLONOSCOPY SCREENING [facility] Test 14:48:42 [code = COLONOSCOPY SCREENING] Future Scheduled 2022-03-25 HEPATITIS B VACCINES Met [facility] Test 14:48:42 (1 of 3 - Risk 3-dose series) [code = HEPATITIS B VACCINES (1 of 3 - Risk 3-dose series)] Future Scheduled 2022-03-25 COVID-19 VACCINE (3 - [facility] Test 14:48:42 Booster for Pfizer series) [code = COVID-19 VACCINE (3 - Booster for Pfizer series)] Future Scheduled 2022-03-25 65+ PNEUMOCOCCAL [facility] Test 14:48:42 VACCINE (4 - PPSV23 if available, else PCV20) [code = 65+ PNEUMOCOCCAL VACCINE (4 - PPSV23 if available, else PCV20)] Future Scheduled 2022-03-25 INFLUENZA VACCINE Method [facility] Test 14:48:42 [code = INFLUENZA VACCINE] Future Scheduled 2022-03-25 SHINGLES VACCINES (1 Met [facility] Test 14:48:42 of 2) [code = SHINGLES VACCINES (1 of 2)] Future Scheduled 2022-03-25 BREAST CANCER [facility] Test 14:48:42 SCREENING [code = BREAST CANCER SCREENING] Future Scheduled 2022-03-25 COLONOSCOPY SCREENING [facility] Test 14:48:42 [code = COLONOSCOPY SCREENING] Future Scheduled 2022-03-25 HEPATITIS B VACCINES Met [facility] Test 14:48:42 (1 of 3 - Risk 3-dose series) [code = HEPATITIS B VACCINES (1 of 3 - Risk 3-dose series)] Future Scheduled 2022-03-25 COVID-19 VACCINE (3 - [facility] Test 14:48:42 Booster for Pfizer series) [code = COVID-19 VACCINE (3 - Booster for Pfizer series)] Future Scheduled 2022-03-25 65+ [facility] 14:48:42 VACCINE (4 - PPSV23 if available, else PCV20) [code = 65+ PNEUMOCOCCAL VACCINE (4 - PPSV23 if available, else PCV20)] Future Scheduled 2022-03-25 INFLUENZA VACCINE [facility] Test 14:48:42 [code = INFLUENZA VACCINE] Future Scheduled 2022-03-25 SHINGLES VACCINES (1 Met [facility] Test 14:48:42 of 2) [code = SHINGLES VACCINES (1 of 2)] Future Scheduled 2022-03-25 BREAST CANCER [facility] Test 14:48:42 SCREENING [code = BREAST CANCER SCREENING] Future Scheduled 2022-03-25 COLONOSCOPY SCREENING [facility] Test 14:48:42 [code = COLONOSCOPY SCREENING] Future Scheduled 2022-03-25 HEPATITIS B VACCINES Met [facility] Test 14:48:42 (1 of 3 - Risk 3-dose series) [code = HEPATITIS B VACCINES (1 of 3 - Risk 3-dose series)] Future Scheduled 2022-03-25 COVID-19 VACCINE (3 - [facility] Test 14:48:42 Booster for Pfizer series) [code = COVID-19 VACCINE (3 - Booster for Pfizer series)] Future Scheduled 2022-03-25 65+ [facility] 14:48:42 VACCINE (4 - PPSV23 if available, else PCV20) [code = 65+ PNEUMOCOCCAL VACCINE (4 - PPSV23 if available, else PCV20)] Future Scheduled 2022-03-25 INFLUENZA VACCINE Method [facility] Test 14:48:42 [code = INFLUENZA VACCINE] Future Scheduled 2022-03-25 SHINGLES VACCINES (1 Met [facility] Test 14:48:42 of 2) [code = SHINGLES VACCINES (1 of 2)] Future Scheduled 2022-03-25 BREAST CANCER [facility] Test 14:48:42 SCREENING [code = BREAST CANCER SCREENING] Future Scheduled 2022-03-25 COLONOSCOPY SCREENING [facility] Test 14:48:42 [code = COLONOSCOPY SCREENING] Future Scheduled 2022-03-25 HEPATITIS B VACCINES Met [facility] Test 14:48:42 (1 of 3 - Risk 3-dose series) [code = HEPATITIS B VACCINES (1 of 3 - Risk 3-dose series)] Future Scheduled 2022-03-25 COVID-19 VACCINE (3 - [facility] Test 14:48:42 Booster for Pfizer series) [code = COVID-19 VACCINE (3 - Booster for Pfizer series)] Future Scheduled 2022-03-25 65+ [facility] 14:48:42 VACCINE (4 - PPSV23 if available, else PCV20) [code = 65+ PNEUMOCOCCAL VACCINE (4 - PPSV23 if available, else PCV20)] Future Scheduled 2022-03-25 INFLUENZA VACCINE [facility] Test 14:48:42 [code = INFLUENZA VACCINE] Future Scheduled 2022-03-25 SHINGLES VACCINES (1 Met [facility] Test 14:48:42 of 2) [code = SHINGLES VACCINES (1 of 2)] Future Scheduled 2022-03-25 BREAST CANCER [facility] Test 14:48:42 SCREENING [code = BREAST CANCER SCREENING] Future Scheduled 2022-03-25 COLONOSCOPY SCREENING [facility] Test 14:48:42 [code = COLONOSCOPY SCREENING] Future Scheduled 2022-03-25 HEPATITIS B VACCINES Met [facility] Test 14:48:42 (1 of 3 - Risk 3-dose series) [code = HEPATITIS B VACCINES (1 of 3 - Risk 3-dose series)] Future Scheduled 2022-03-25 COVID-19 VACCINE (3 - Me [facility] Test 14:48:42 Booster for Pfizer series) [code = COVID-19 VACCINE (3 - Booster for Pfizer series)] Future Scheduled 2022-03-25 65+ [facility]AL [facility] Test 14:48:42 VACCINE (4 - PPSV23 if available, else PCV20) [code = 65+ PNEUMOCOCCAL VACCINE (4 - PPSV23 if available, else PCV20)] Future Scheduled 2022-03-25 INFLUENZA VACCINE Method [facility] Test 14:48:42 [code = INFLUENZA VACCINE] Future Scheduled 2022-03-25 SHINGLES VACCINES (1 Met [facility] Test 14:48:42 of 2) [code = SHINGLES VACCINES (1 of 2)] Future Scheduled 2022-03-25 BREAST CANCER [facility] Test 14:48:42 SCREENING [code = BREAST CANCER SCREENING] Future Scheduled 2022-03-25 COLONOSCOPY SCREENING [facility] Test 14:48:42 [code = COLONOSCOPY SCREENING] Future Scheduled 2022-03-25 HEPATITIS B VACCINES Met [facility] Test 14:48:42 (1 of 3 - Risk 3-dose series) [code = HEPATITIS B VACCINES (1 of 3 - Risk 3-dose series)] Future Scheduled 2022-03-25 COVID-19 VACCINE (3 - [facility] Test 14:48:42 Booster for Pfizer series) [code = COVID-19 VACCINE (3 - Booster for Pfizer series)] Future Scheduled 2022-03-25 65+ PNEUMOCOCCAL [facility] Test 14:48:42 VACCINE (4 - PPSV23 if available, else PCV20) [code = 65+ PNEUMOCOCCAL VACCINE (4 - PPSV23 if available, else PCV20)] Future Scheduled 2022-03-25 INFLUENZA VACCINE Method [facility] Test 14:48:42 [code = INFLUENZA VACCINE] Future Scheduled 2022-03-04 SHINGLES VACCINES (1 Met [facility] Test 14:03:57 of 2) [code = SHINGLES VACCINES (1 of 2)] Future Scheduled 2022-03-04 BREAST CANCER [facility] Test 14:03:57 SCREENING [code = BREAST CANCER SCREENING] Future Scheduled 2022-03-04 COLONOSCOPY SCREENING [facility] Test 14:03:57 [code = COLONOSCOPY SCREENING] Future Scheduled 2022-03-04 HEPATITIS B VACCINES Met [facility] Test 14:03:57 (1 of 3 - Risk 3-dose series) [code = HEPATITIS B VACCINES (1 of 3 - Risk 3-dose series)] Future Scheduled 2022-03-04 COVID-19 VACCINE (3 - [facility] Test 14:03:57 Booster for Pfizer series) [code = COVID-19 VACCINE (3 - Booster for Pfizer series)] Future Scheduled 2022-03-04 65+ [facility] Test 14:03:57 VACCINE (4 - PPSV23 if available, else PCV20) [code = 65+ PNEUMOCOCCAL VACCINE (4 - PPSV23 if available, else PCV20)] Future Scheduled 2022-03-04 INFLUENZA VACCINE Method [facility] Test 14:03:57 [code = INFLUENZA VACCINE] Future Scheduled 2022-03-04 SHINGLES VACCINES (1 Met [facility] Test 14:03:57 of 2) [code = SHINGLES VACCINES (1 of 2)] Future Scheduled 2022-03-04 BREAST CANCER [facility] Test 14:03:57 SCREENING [code = BREAST CANCER SCREENING] Future Scheduled 2022-03-04 COLONOSCOPY SCREENING [facility] Test 14:03:57 [code = COLONOSCOPY SCREENING] Future Scheduled 2022-03-04 HEPATITIS B VACCINES Met [facility] Test 14:03:57 (1 of 3 - Risk 3-dose series) [code = HEPATITIS B VACCINES (1 of 3 - Risk 3-dose series)] Future Scheduled 2022-03-04 COVID-19 VACCINE (3 - Me [facility] Test 14:03:57 Booster for Pfizer series) [code = COVID-19 VACCINE (3 - Booster for Pfizer series)] Future Scheduled 2022-03-04 65+ [facility] Test 14:03:57 VACCINE (4 - PPSV23 if available, else PCV20) [code = 65+ PNEUMOCOCCAL VACCINE (4 - PPSV23 if available, else PCV20)] Future Scheduled 2022-03-04 INFLUENZA VACCINE Method [facility] Test 14:03:57 [code = INFLUENZA VACCINE] Future Scheduled 2022-03-04 SHINGLES VACCINES (1 Met [facility] Test 14:03:57 of 2) [code = SHINGLES VACCINES (1 of 2)] Future Scheduled 2022-03-04 BREAST CANCER [facility] Test 14:03:57 SCREENING [code = BREAST CANCER SCREENING] Future Scheduled 2022-03-04 COLONOSCOPY SCREENING [facility] Test 14:03:57 [code = COLONOSCOPY SCREENING] Future Scheduled 2022-03-04 HEPATITIS B VACCINES Met [facility] Test 14:03:57 (1 of 3 - Risk 3-dose series) [code = HEPATITIS B VACCINES (1 of 3 - Risk 3-dose series)] Future Scheduled 2022-03-04 COVID-19 VACCINE (3 - Me [facility] Test 14:03:57 Booster for [...] [facility] Test 14:03:57 of 2) [code = SHINGLES VACCINES (1 of 2)] Future Scheduled 2022-03-04 BREAST CANCER [facility] Test 14:03:57 SCREENING [code = BREAST CANCER SCREENING] Future Scheduled 2022-03-04 COLONOSCOPY SCREENING [facility] Test 14:03:57 [code = COLONOSCOPY SCREENING] Future Scheduled 2022-03-04 HEPATITIS B VACCINES Met [facility] Test 14:03:57 (1 of 3 - Risk 3-dose series) [code = HEPATITIS B VACCINES (1 of 3 - Risk 3-dose series)] Future Scheduled 2022-03-04 COVID-19 VACCINE (3 - [facility] Test 14:03:57 Booster for Pfizer series) [code = COVID-19 VACCINE (3 - Booster for Pfizer series)] Future Scheduled 2022-03-04 65+ PNEUMOCOCCAL [facility] Test 14:03:57 VACCINE (4 - PPSV23 if available, else PCV20) [code = 65+ PNEUMOCOCCAL VACCINE (4 - PPSV23 if available, else PCV20)] Future Scheduled 2022-03-04 INFLUENZA VACCINE Method [facility] Test 14:03:57 [code = INFLUENZA VACCINE] Future Scheduled 2022-02-11 SHINGLES VACCINES (1 Met [facility] Test 13:39:12 of 2) [code = SHINGLES VACCINES (1 of 2)] Future Scheduled 2022-02-11 BREAST CANCER [facility] Test 13:39:12 SCREENING [code = BREAST CANCER SCREENING] Future Scheduled 2022-02-11 COLONOSCOPY SCREENING [facility] Test 13:39:12 [code = COLONOSCOPY SCREENING] Future Scheduled 2022-02-11 HEPATITIS B VACCINES Met [facility] Test 13:39:12 (1 of 3 - Risk 3-dose series) [code = HEPATITIS B VACCINES (1 of 3 - Risk 3-dose series)] Future Scheduled 2022-02-11 COVID-19 VACCINE (3 - [facility] Test 13:39:12 Booster for Pfizer series) [code = COVID-19 VACCINE (3 - Booster for Pfizer series)] Future Scheduled 2022-02-11 65+ [facility] Test 13:39:12 VACCINE (4 - PPSV23 or PCV20) [code = 65+ PNEUMOCOCCAL VACCINE (4 - PPSV23 or PCV20)] Future Scheduled 2022-02-11 INFLUENZA VACCINE Method [facility] Test 13:39:12 [code = INFLUENZA VACCINE] Future Scheduled 2022-01-29 SHINGLES VACCINES (1 Met [facility] Test 14:07:20 of 2) [code = SHINGLES VACCINES (1 of 2)] Future Scheduled 2022-01-29 BREAST CANCER [facility] Test 14:07:20 SCREENING [code = BREAST CANCER SCREENING] Future Scheduled 2022-01-29 COLONOSCOPY SCREENING [facility] Test 14:07:20 [code = COLONOSCOPY SCREENING] Future Scheduled 2022-01-29 HEPATITIS B VACCINES Met [facility] Test 14:07:20 (1 of 3 - Risk 3-dose series) [code = HEPATITIS B VACCINES (1 of 3 - Risk 3-dose series)] Future Scheduled 2022-01-29 COVID-19 VACCINE (3 - [facility] Test 14:07:20 Booster for Pfizer series) [code = COVID-19 VACCINE (3 - Booster for Pfizer series)] Future Scheduled 2022-01-29 65+ [facility] Test 14:07:20 VACCINE (4 - PPSV23 or PCV20) [code = 65+ PNEUMOCOCCAL VACCINE (4 - PPSV23 or PCV20)] Future Scheduled 2022-01-29 INFLUENZA VACCINE Method [facility] Test 14:07:20 [code = INFLUENZA VACCINE] Future Scheduled 2022-01-29 SHINGLES VACCINES (1 Met [facility] Test 14:07:20 of 2) [code = SHINGLES VACCINES (1 of 2)] Future Scheduled 2022-01-29 BREAST CANCER [facility] Test 14:07:20 SCREENING [code = BREAST CANCER SCREENING] Future Scheduled 2022-01-29 COLONOSCOPY SCREENING [facility] Test 14:07:20 [code = COLONOSCOPY SCREENING] Future Scheduled 2022-01-29 HEPATITIS B VACCINES Met [facility] Test 14:07:20 (1 of 3 - Risk 3-dose series) [code = HEPATITIS B VACCINES (1 of 3 - Risk 3-dose series)] Future Scheduled 2022-01-29 COVID-19 VACCINE (3 - [facility] Test 14:07:20 Booster for Pfizer series) [code = COVID-19 VACCINE (3 - Booster for Pfizer series)] Future Scheduled 2022-01-29 65[facility] 14:07:20 VACCINE (4 - PPSV23 or PCV20) [code = 65+ PNEUMOCOCCAL VACCINE (4 - PPSV23 or PCV20)] Future Scheduled 2022-01-29 INFLUENZA VACCINE Method [facility] Test 14:07:20 [code = INFLUENZA VACCINE] Future Scheduled 2022-01-29 SHINGLES VACCINES (1 Met [facility] Test 14:07:20 of 2) [code = SHINGLES VACCINES (1 of 2)] Future Scheduled 2022-01-29 BREAST CANCER [facility] Test 14:07:20 SCREENING [code = BREAST CANCER SCREENING] Future Scheduled 2022-01-29 COLONOSCOPY SCREENING [facility] Test 14:07:20 [code = COLONOSCOPY SCREENING] Future Scheduled 2022-01-29 HEPATITIS B VACCINES Met [facility] Test 14:07:20 (1 of 3 - Risk 3-dose series) [code = HEPATITIS B VACCINES (1 of 3 - Risk 3-dose series)] Future Scheduled 2022-01-29 COVID-19 VACCINE (3 - [facility] Test 14:07:20 Booster for Pfizer series) [code = COVID-19 VACCINE (3 - Booster for Pfizer series)] Future Scheduled 2022-01-29 65+ PNEUMOCOCCAL [facility] Test 14:07:20 VACCINE (4 - PPSV23 or PCV20) [code = 65+ PNEUMOCOCCAL VACCINE (4 - PPSV23 or PCV20)] Future Scheduled 2022-01-29 INFLUENZA VACCINE Method [facility] Test 14:07:20 [code = INFLUENZA VACCINE] Future Scheduled 2022-01-29 SHINGLES VACCINES (1 Met [facility] Test 14:07:20 of 2) [code = SHINGLES VACCINES (1 of 2)] Future Scheduled 2022-01-29 BREAST CANCER [facility] Test 14:07:20 SCREENING [code = BREAST CANCER SCREENING] Future Scheduled 2022-01-29 COLONOSCOPY SCREENING [facility] Test 14:07:20 [code = COLONOSCOPY SCREENING] Future Scheduled 2022-01-29 HEPATITIS B VACCINES Met [facility] Test 14:07:20 (1 of 3 - Risk 3-dose series) [code = HEPATITIS B VACCINES (1 of 3 - Risk 3-dose series)] Future Scheduled 2022-01-29 COVID-19 VACCINE (3 - [facility] Test 14:07:20 Booster for Pfizer series) [code = COVID-19 VACCINE (3 - Booster for Pfizer series)] Future Scheduled 2022-01-29 65+ PNEUMOCOCCAL [facility] Test 14:07:20 VACCINE (4 - PPSV23 or PCV20) [code = 65+ PNEUMOCOCCAL VACCINE (4 - PPSV23 or PCV20)] Future Scheduled 2022-01-29 INFLUENZA VACCINE Method [facility] Test 14:07:20 [code = INFLUENZA VACCINE] Future Scheduled 2022-01-20 SHINGLES VACCINES (1 Met [facility] Test 06:12:34 of 2) [code = SHINGLES VACCINES (1 of 2)] Future Scheduled 2022-01-20 Screening for [facility] Test 06:12:34 malignant neoplasm of cervix (procedure) [code = [id number]] Future Scheduled 2022-01-20 BREAST CANCER [facility] Test 06:12:34 SCREENING [code = BREAST CANCER SCREENING] Future Scheduled 2022-01-20 COLONOSCOPY SCREENING [facility] Test 06:12:34 [code = COLONOSCOPY SCREENING] Future Scheduled 2022-01-20 HEPATITIS B VACCINES Met [facility] Test 06:12:34 (1 of 3 - Risk 3-dose series) [code = HEPATITIS B VACCINES (1 of 3 - Risk 3-dose series)] Future Scheduled 2022-01-20 COVID-19 VACCINE (3 - Me [facility] Test 06:12:34 Booster for Pfizer series) [code = COVID-19 VACCINE (3 - Booster for Pfizer series)] Future Scheduled 2022-01-20 65+ PNEUMOCOCCAL [facility] Test 06:12:34 VACCINE (4 - PPSV23 or PCV20) [code = 65+ PNEUMOCOCCAL VACCINE (4 - PPSV23 or PCV20)] Future Scheduled 2022-01-20 INFLUENZA VACCINE Method [facility] Test 06:12:34 [code = INFLUENZA VACCINE] Future Scheduled 2022-01-16 SHINGLES VACCINES (1 Met [facility] Test 12:09:25 of 2) [code = SHINGLES VACCINES (1 of 2)] Future Scheduled 2022-01-16 Screening for [facility] Test 12:09:25 malignant neoplasm of cervix (procedure) [code = [id number]] Future Scheduled 2022-01-16 BREAST CANCER [facility] Test 12:09:25 SCREENING [code = BREAST CANCER SCREENING] Future Scheduled 2022-01-16 COLONOSCOPY SCREENING [facility] Test 12:09:25 [code = COLONOSCOPY SCREENING] Future Scheduled 2022-01-16 HEPATITIS B VACCINES Met [facility] Test 12:09:25 (1 of 3 - Risk 3-dose series) [code = HEPATITIS B VACCINES (1 of 3 - Risk 3-dose series)] Future Scheduled 2022-01-16 COVID-19 VACCINE (3 - [facility] Test 12:09:25 Booster for Pfizer series) [code = COVID-19 VACCINE (3 - Booster for Pfizer series)] Future Scheduled 2022-01-16 65+ [facility] Test 12:09:25 VACCINE (4 - PPSV23 or PCV20) [code = 65+ PNEUMOCOCCAL VACCINE (4 - PPSV23 or PCV20)] Future Scheduled 2022-01-16 INFLUENZA VACCINE Method [facility] Test 12:09:25 [code = INFLUENZA VACCINE] Future Scheduled 2022-01-14 SHINGLES VACCINES (1 Met [facility] Test 04:11:46 of 2) [code = SHINGLES VACCINES (1 of 2)] Future Scheduled 2022-01-14 Screening for [facility] Test 04:11:46 malignant neoplasm of cervix (procedure) [code = [id number]] Future Scheduled 2022-01-14 BREAST CANCER [facility] Test 04:11:46 SCREENING [code = BREAST CANCER SCREENING] Future Scheduled 2022-01-14 COLONOSCOPY SCREENING [facility] Test 04:11:46 [code = COLONOSCOPY SCREENING] Future Scheduled 2022-01-14 HEPATITIS B VACCINES Met [facility] Test 04:11:46 (1 of 3 - Risk 3-dose series) [code = HEPATITIS B VACCINES (1 of 3 - Risk 3-dose series)] Future Scheduled 2022-01-14 COVID-19 VACCINE (3 - [facility] Test 04:11:46 Booster for Pfizer series) [code = COVID-19 VACCINE (3 - Booster for Pfizer series)] Future Scheduled 2022-01-14 65+ [facility]AL [facility] Test 04:11:46 VACCINE (4 - PPSV23 or PCV20) [code = 65+ PNEUMOCOCCAL VACCINE (4 - PPSV23 or PCV20)] Future Scheduled 2022-01-14 INFLUENZA VACCINE Method [facility] Test 04:11:46 [code = INFLUENZA VACCINE] Future Scheduled 2021-08-26 Screening for [facility] Test 13:02:23 malignant neoplasm of cervix (procedure) [code = [id number]] Future Scheduled 2021-08-26 BREAST CANCER [facility] Test 13:02:23 SCREENING [code = BREAST CANCER SCREENING] Future Scheduled 2021-08-26 COLONOSCOPY SCREENING [facility] Test 13:02:23 [code = COLONOSCOPY SCREENING] Future Scheduled 2021-08-26 Screening for [facility] Test 13:02:23 malignant neoplasm of lung (procedure) [code = [id number]] Future Scheduled 2021-08-26 SHINGLES VACCINES (#1) [facility] Test 13:02:23 [code = SHINGLES VACCINES (#1)] Future Scheduled 2021-08-26 COVID-19 VACCINE (3 - [facility] Test 13:02:23 Pfizer risk 4-dose series) [code = COVID-19 VACCINE (3 - Pfizer risk 4-dose series)] Future Scheduled 2021-08-26 65+ [facility]CCAL [facility] Test 13:02:23 VACCINE (4 of 4 - PPSV23) [code = 65+ PNEUMOCOCCAL VACCINE (4 of 4 - PPSV23)] Future Scheduled 2021-08-26 INFLUENZA VACCINE Method [facility] Test 13:02:23 [code = INFLUENZA VACCINE] Encounters Start End Encounter Admission Attending Care Care Encounter Source Date/Time Date/Time Type Type Clinicians Facility Department ID 2022-02-18 Outpatient [facility] W [id number] [place] 14:30:[address] [place] [address] 2021-07-14 Outpatient SADIKOVIC, [facility] [id number] [place] 09:33:51 [facility] 2021-06-02 Outpatient HEMATPOUR, [facility] [id number] [place] 13:58:59 [facility] 2021-04-28 Outpatient HEMATPOUR, [facility] [id number] [place] 11:21:22 [facility] 2021-03-20 Emergency [facility] [id number] [facility] HEMATPOUR, [facility] [id number] [place] 08:16:46 [facility] 2020-10-31 Outpatient HEMATPOUR, [facility] [id number] [place] 09:44:50 [facility] 2020-09-30 Outpatient HEMATPOUR, [facility] [id number] [place] 13:16:03 BEVERLY Laird 2022-05-20 2022-05-20 Telephone [facility] 1.2.840.114 [id number] Univers 00:00:00 00:00:00 [facility] [id number] i ty [id number] [address] 2022-05-10 2022-05-10 Emergency X [facility] ERT [id number] Univers 10:30:00 16:31:00 HOME ity [facility] 2022-05-10 2022-05-10 Emergency [place], TRAU[place] 1.2.840.114 [id number] Univers 10:30:00 16:31:00 [facility] [id number] [place] [id number] [facility] [address] 2022-05-10 2022-05-10 Telephone [facility] 1.2.840.114 [id number] Univers 00:00:00 00:00:00 [facility] 350.1.13.10 i [place] [id number] [place] [id number] [place] 2022-05-08 2022-05-08 [facility] [id number] Univers 16:18:00 18:42:00 THERESA barbosa [facility] 2022-05-08 2022-05-08 [facility] 1.2.840.114 [id number] Univers 16:18:00 18:42:00 Theresa BULLOCK 350.1.13.10 [place] [id number] [place] [id number] [place] 2022-05-07 2022-05-07 Telephone [facility] 1.2.840.114 [id number] Univers 00:00:00 00:00:00 [facility] 350.1.13.10 i [place] [id number] [address] 2022-05-06 2022-05-06 Emergency X JUANITA [facility] ERT [id number] Univers 14:13:00 18:19:00 ANETTE charlie [facility] 2022-05-06 2022-05-06 [facility] 1.2.085.043 [id number] Univers 14:13:00 18:19:00 Anette BULLOCK 350.1.13.10 ity of [place] 4.2.7.2.686 [facility] [id number] [address] 2022-05-06 2022-05-06 Telephone JOSÉ ANTONIO Cardenas 1.2.840.114 [id number] Univers 00:00:00 00:00:00 [facility] 350.1.13.10 i [id number] [address] 2022-04-22 2022-04-22 Emergency [facility] [id number] Univers 13:55:00 17:00:00 PAULETTE [facility] 2022-04-22 2022-04-22 [facility] [id number] [id number] Univers 13:55:00 17:00:00 Paulette BULLOCK 350.1.13.10 i ty [facility] 4.2.7.2.686 [facility] [id number] [address] 2022-04-07 2022-04-07 Outpatient R UNKNOWN, [facility] [id number] Univers 20:40:00 20:40:00 ATTENDING ity [facility] 2022-04-07 2022-04-07 Telephone Devin 1.2.840.4 [id number] Univers 00:00:00 00:00:00 Robbi Hairston 56196.1.1 i ty of 3.104.2.7 [place] .3.152839 Medica l .8 [place] 2022-03-05 2022-03-05 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 350.1.13.10 i [place] [id number] Medi porfirio [address] [place] 2022-03-05 2022-03-05 Outpatient R [facility] [id number] Univers 13:00:00 13:00:00 [facility] 2022-02-26 2022-02-26 Outpatient R [facility] [id number] Univers 08:30:00 08:30:00 [facility] 2022-02-26 2022-02-26 Outpatient R [facility] [id number] Univers 08:30:00 08:30:00 [facility] 2022-02-17 2022-02-17 Transition Stevo, 1.2.840.1 [id number] Univers 00:00:00 00:00:00 of Care Isaias Arredondo 77397.1.1 it y of 3.104.2.7 [place] .3.053857 Medica l .8 [place] 2022-02-10 2022-02-16 Inpatient X [facility] [id number] Univers 22:59:00 19:27:00 TOMY barbosa [facility] 2022-02-10 2022-02-16 Hospital Reilly Means 1.2.840.1 [id number] Univers 22:59:00 19:27:00 Encounter Ofe Shields 36258.1.1 ity of [place].2.7 [place] .3.774818 Medica [place] .8 [place] 2022-02-11 2022-02-11 Telephone [place], 1.2.840.5 [id number] Univers 00:00:00 00:00:00 [place] 88321.1.1 ity of 3.104.2.7 [place] .3.352464 Medica l .8 [place] 2022-02-10 2022-02-10 Travel 1.2.840.1 [id number] [id number] Univers 00:00:00 00:00:00 27263.1.1 350.1.13.10 ity of 3.104.2.7 4[place].3.698 [place] .3.993591 084.8 Medica l .8 [place] 2022-01-30 2022-01-30 Telephone [place], 1.2.840.9 [id number] Univers 00:00:00 00:00:00 [place] 00034.1.1 ity of 3.104.2.7 [place] .3.347120 Medica l .8 [place] 2022-01-06 2022-01-06 Orders Doctor FERMIN 1.2.840.114 [id number] Univers 00:00:00 00:00:00 Only Unassigned, JACKELINE 350.1.13.10 ity of [place] [facility] 4.2.7.2.686 Yomi as [id number] [address] 2021-12-25 2021-12-25 Orders Doctor FERMIN 1.2.840.114 [id number] Univers 00:00:00 00:00:00 Only Unassigned, JACKELINE 350.1.13.10 ity of [place] [facility] 4.2.7.2.686 Yomi as [phone] [address] 2021-12-12 2021-12-13 Emergency X Bill COLES [facility] ERT [id number] Univers 23:53:00 01:52:00 ity of [facility] 2021-12-12 2021-12-13 Emergency Bill Coles [facility] 1.2.840.114 [id number] Univers 23:53:00 01:52:00 Kiersten BULLOCK 350.1.13.10 i ty of [place] [phone] [facility] [address] 2021-11-20 2021-11-20 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 [facility] [facility] UNIVERSIT 1.2.840.114 [id number] Univers 09:45:00 10:00:[address] [facility] 350.1.13.10 ity of [facility] 4.2.[place].2.[place] [id number] [facility] [address] 2021-11-20 2021-11-20 Office [facility] 1.2.412.505 9601 9084 Univers 08:30:00 09:00:00 Visit [facility] 350.1.13.10 i ty of CL[place]ICS [place] [id number] [facility] [address] [place] 2021-11-20 2021-11-20 Outpatient R [facility] [id number] Univers 08:30:00 08:30:00 [facility] 2021-11-20 2021-11-20 Outpatient R [facility] [id number] 300 Univers 08:30:00 08:30:00 [facility] 2021-11-20 2021-11-20 Outpatient R [facility] [id number] Univers 08:30:00 08:30:00 [facility] 2021-11-20 2021-11-20 Outpatient R [facility] [id number] 300 Univers 08:30:00 08:30:00 [facility] 2021-10-24 2021-10-24 Emergency X [facility] ERT [id number] Univers 16:27:00 22:26:00 [facility] 2021-10-24 2021-10-24 Emergency X [facility] ERT [id number] Univers 16:27:00 22:26:00 [facility] 2021-10-24 2021-10-24 Emergency Reilly Means [facility] 1.2.840. 114 [id number] Univers 16:27:00 22:26:00 Chraity Mcallister [place] 350.1.13.10 ity of [place] 4.2.7.2.686 [facility] [id number] [address] 2021-10-23 2021-10-24 Emergency X [facility] ERT [id number] Univers 20:22:00 02:57:00 [facility] ity [facility] 2021-10-23 2021-10-24 Emergency [facility] 1.2.145.621 [id number] [id number] Univers 20:22:00 02:57:00 [facility] 350.1.13.10 ity [facility] 4.2.7.2.686 [facility] [id number] [address] 2021-09-07 2021-09-07 Outpatient R [facility] [id number] Univers 08:00:00 08:00:[address] [facility] 2021-09-07 2021-09-07 Outpatient R [facility], [facility] [id number] Univers 08:00:00 08:00:[address] [facility] 2021-08-21 2021-08-21 Outpatient R [facility] [id number] Univers 10:45:00 10:45:00 SANTIAGO barbosa [facility] 2021-08-21 2021-08-21 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 Santiago Cardenas 1.2.840.1 [id number] Univers 10:45:00 10:45:00 Visit [facility] 51823.1.1 ity of 3.104.2.7 [place] .3.754285 Medica l .8 [place] 2021-08-21 2021-08-21 Office Ronald, 1.2.840.0 [id number] 516 Univers 08:30:00 09:00:00 Visit Santiago 66004.1.1 ity of 3.104.2.7 [place] .3.022948 Medica l .8 [place] 2021-08-21 2021-08-21 Office Ronald, UN[facility]ERSIT 1.2.185.433 4544 8516 Univers 08:30:00 09:00:[address] [facility] 350.1.13.10 i ty of [facility] 4.2.7.2.686 Richi bach [id number] [facility] porfirio [address] [place] 2021-08-21 2021-08-21 Outpatient R [facility] [id number] Univers 08:30:00 08:30:00 SANTIAGO barbosa [facility] 2021-08-21 2021-08-21 Travel 1.2.840.1 1.2.500.674 [id number] 3865 Univers 00:00:00 00:00:00 94935.1.1 350.1.13.10 ity of 3.104.2.7 4.[place]7.3.698 [place] .3.600532 084.8 Medica l .8 [place] 2021-08-14 2021-08-14 Telephone East, 1.2.840.8 [id number] Univers 00:00:00 00:00:00 Santiago 54172.1.1 ity of 3.104.2.7 [place] .3.052687 Medica l .8 [place] 2021-08-13 2021-08-13 Telephone East, 1.2.840.8 [id number] Univers 00:00:00 00:00:00 Santiago 14272.1.1 ity of 3.104.2.7 [place] .3.962754 Medica l .8 [place] 2021-08-11 2021-08-11 Outpatient [facility] [id number] Univers 08:00:00 08:00:00 SANTIAGO barbosa [facility] 2021-08-05 2021-08-05 Inpatient [facility] [id number] [facility] 05:24:00 05:24:00 Mike 31 [facility] 2021-07-20 2021-07-20 Outpatient [facility] [id number] Univers 10:00:00 10:00:00 SANTIAGO ity [facility] 2021-07-14 2021-07-14 Office KIMBERLEY Lira 6400 1.2.840.114 13 [id number] [place] 08:45:00 09:34:01 Visit Elan ROMERO 350.1.13.58 Health 9.2.7.2.686 [id number] 1 2021-07-09 2021-07-09 Telephone [place], UTP 6400 1.2.840.114 [id number] [place] 00:00:00 00:00:[address] 350.1.13.58 Health 9.2.7.2.686 [id number] 1 2021-07-09 2021-07-09 Telephone [place], UTP 6400 1.2.840.114 [id number] [place] 00:00:00 00:00:[address] 350.1.13.58 Health 9.2.7.2.686 [id number] 1 2021-07-03 2021-07-03 Outpatient R EAST, [facility] [id number] Univers 08:00:00 08:00:00 SANTIAGO barbosa [facility] 2021-06-17 2021-06-17 Inpatient Rasgary, HCACL INTE.02 [id number] [facility] 10:56:00 14:36:00 Mike 47 [facility] 2021-06-15 2021-06-15 Outpatient R SELF, [facility] [id number] Univers 10:15:00 11:07:[address] [facility] 2021-06-15 2021-06-15 Outpatient R SELF, [facility] [id number] Univers 10:15:00 10:15:[address] [facility] 2021-06-15 2021-06-15 Outpatient R SELF, [facility] [id number] Univers 10:15:00 10:15:[address] [facility] 2021-06-15 2021-06-15 Orders Doctor 1.2.840.5 [id number] Univers 00:00:00 00:00:00 Only Unassigned, 10986.1.1 ity of [place] 3.104.2.7 [place] .3.414541 Medica l .8 Branch 2021-06-15 2021-06-15 Travel 1.2.840.1 1.2.193.467 0378 7719 Univers 00:00:00 00:00:00 61572.1.1 350.1.13.10 ity of 3.104.2.7 4.2.7.3.698 [place] .3.568533 084.8 Medica l .8 Branch 2021-06-11 2021-06-11 Refill East, [facility] 1.2.918.594 9964 9185 Univers 00:00:00 00:00:00 [facility] 350.1.13.10 i ty of CL[place]ICS [place] [id number] [facility] [address] 2021-06-11 2021-06-11 Refill East, 1.2.840.8 [id number] 185 Univers 00:00:00 00:00:00 Santiago 49919.1.1 ity of 3.104.2.7 [place] .3.754968 Medica l .8 [place] 2021-06-05 2021-06-05 Outpatient R [facility] [id number] Univers 09:00:00 09:00:00 SANTIAGO ity of [facility] 2021-06-02 2021-06-02 Telephone [facility], UNIVERSIT 1.2.840.114 90 [id number] Univers 00:00:00 00:00:00 [facility] 350.1.13.10 i ty of CL[place] 259.8853888 [place] 511[address] [place] 2021-06-02 2021-06-02 Telephone East, 1.2.840.0 [id number] 903 [id number] Univers 00:00:00 00:00:00 Santiago 51431.1.1 ity of 3.104.2.7 [place] .3.747781 Medica l .8 Branch 2021-05-29 2021-05-29 Telephone East, 1.2.840.6 [id number] 902 [id number] Univers 00:00:00 00:00:00 Santiago 21461.1.1 ity of 3.104.2.7 [place] .3.139640 Medica l .8 Branch 2021-05-29 2021-05-29 Telephone East, 1.2.840.3 [id number] 902 [id number] Univers 00:00:00 00:00:00 Santiago 27970.1.1 [facility] 3.104.2.7 [facility].860592 Medica l 8 Branch 2021-05-25 2021-05-25 Outpatient R SELF, [facility] [id number] Univers 08:00:00 08:00:[address] [facility] 2021-04-29 2021-04-29 Outpatient R LALA, [facility] [id number] Univers 08:00:00 08:00:00 NIKOLAI familia [facility] 2021-04-28 2021-04-28 Telephone Maryjanedale [facility] 6400 1.2.840.114 [id number] [place] 00:00:00 00:00:[address] 350.1.13.58 Health 9.2.7.2.686 [id number] 1 2021-04-28 2021-04-28 Telephone Jailyn 1.2.840.6 [id number] 21 [id number] Methodi 00:00:00 00:00:[address] 3.430.2.7 Hospit a .3.645867 l .8 2021-03-31 2021-03-31 Orders Carol Ann 1.2.840.1 [id number] 21 [id number] Methodi 00:00:00 00:00:00 Only Sarai Lieberman 81780.1.1 979 s t 3.430.2.7 Hospit a .3.933035 l .8 2021-03-30 2021-03-30 Outpatient R SELF, [facility] [id number] Univers 08:45:00 08:45:00 GADIEL rodas [facility] 2021-03-24 2021-03-24 Telephone Jailyn 1.2.840.0 [id number] 21 [id number] Methodi 00:00:00 00:00:[address] 3.430.2.7 Hospit a .3.295793 l .8 2021-02-13 2021-02-13 Telephone East, 1.2.840.9 [id number] 876 [id number] Univers 00:00:00 00:00:00 Santiago 80287.1.1 ity of 3.104.2.7 [place] .3.896170 Medica l .8 [place] 2021-01-28 2021-01-28 Laure REEVES, [facility] [id number] Univers 08:45:00 09:37:00 NIKOLAI ity of [facility] 2021-01-28 2021-01-28 Travel 1.2.840.1 1.2.851.769 3598 9777 Univers 00:00:00 00:00:00 41079.1.1 350.1.13.10 ity of 3.104.2.7 4.2.7.3.698 [place] .3.357599 084.8 Medica l .8 [place] 2021-01-19 2021-01-19 Telephone Pelletier, 1.2.840.1 [id number] 2100 [id number] [facility] 00:00:00 00:00:[address] 3.430.2.7 Hospit a .3.721362 l .8 2021-01-04 2021-01-04 Dmitry Bass, 1.2.840.5 [id number] 53659 696 Univers 00:00:00 00:00:00 (Out) Dagoberto H 97973.1.1 ity of 3.104.2.7 [place] .3.150872 Medica l .8 [place] 2021-01-04 2021-01-04 Dmitry Bass, 1.2.840.6 [id number] 38774 696 Univers 00:00:00 00:00:00 (Out) Dagoberto H 01794.1.1 ity of 3.104.2.7 [place] .3.958637 Medica l .8 [place] 2021-01-03 2021-01-03 Dmitry Bass, 1.2.840.7 [id number] 63011 790 Univers 00:00:00 00:00:00 (Out) Dagoberto H 61554.1.1 ity of 3.104.2.7 [place] .3.158143 Medica l .8 Branch 2021-01-03 2021-01-03 Letter Shelia, 1.2.840.1 [id number] 67199 790 Univers 00:00:00 00:00:00 (Out) Dagoberto Peterson 24163.1.1 ity of 3.104.2.7 [place] .3.254373 Medica l .8 [place] 2021-01-02 2021-01-02 Outpatient R [facility] [id number] 786 Univers 13:40:00 13:40:00 ity of [facility] 2021-01-02 2021-01-02 Laboratory Cuba Franks 1.2.840.8 [id number] Univers 12:14:13 12:57:34 Only Lab, [facility] [place] 95424.1.1 ity of 3.104.2.7 [place] .3.021491 Medica l .8 [place] 2021-01-02 2021-01-02 Laboratory [place] Franks 1.2.840.8 [id number] Univers 12:14:13 12:57:34 Only Lab, [facility] Fam Pob I 71008.1.1 ity of 3.104.2.7 [place] .3.822878 Medica l .8 [place] 2021-01-02 2021-01-02 Travel 1.2.840.1 1.2.153.514 5837 2306 Univers 00:00:00 00:00:00 29084.1.1 350.1.13.10 ity of 3.104.2.7 4.2.7.3.698 [place] .3.513415 084.8 Medica l .8 [place] 2021-01-02 2021-01-02 Letter Doctor 1.2.840.7 [id number] 03936 948 Univers 00:00:00 00:00:00 (Out) Unassigned, 77047.1.1 ity of [place] 3.104.2.7 [place] .3.452687 Medica l .8 [place] 2021-01-02 2021-01-02 Letter Doctor 1.2.840.7 [id number] 41089 946 Univers 00:00:00 00:00:00 (Out) Unassigned, 40451.1.1 ity of [place] 3.104.2.7 [place] .3.128966 Medica l .8 Branch 2021-01-02 2021-01-02 Travel 1.2.840.1 1.2.427.021 9124 2306 Univers 00:00:00 00:00:00 96717.1.1 350.1.13.10 ity of 3.104.2.7 4.2.7.3.698 [place] .3.583244 084.8 Medica l .8 Branch 2021-01-02 2021-01-02 Letter Doctor 1.2.840.1 [id number] 63601 948 Univers 00:00:00 00:00:00 (Out) Unassigned, 03740.1.1 ity of [place] 3.104.2.7 [place] .3.170926 Medica l .8 [place] 2021-01-02 2021-01-02 Letter Doctor 1.2.840.5 [id number] 96631 946 Univers 00:00:00 00:00:00 (Out) Unassigned, 28125.1.1 ity of [place] 3.104.2.7 [place] .3.044750 Medica l .8 Branch 2020-12-22 2020-12-22 Telephone Beltran, 1.2.840.6 [id number] 862 22638 Univers 00:00:00 00:00:00 Eligionda R 35579.1.1 i ty of 3.104.2.7 [place] .3.225017 Medica l .8 Branch 2020-12-22 2020-12-22 Telephone Beltran, 1.2.840.9 [id number] 862 23313 Univers 00:00:00 00:00:00 Roshunda R 42633.1.1 i ty of 3.104.2.7 [place] .3.514824 Medica l .8 [place] 2020-12-12 2020-12-12 Office H[place]pour, UTP 6400 1.2.840.114 12 [id number] [place] 07:42:02 08:18:[address] 350.1.13.58 Health 9.2.7.2.686 438.9562353 1 2020-12-12 2020-12-12 Office Kinjal, UTP 6400 1.2.840.114 12 [id number] 07:42:02 08:18:[address] 350.1.13.58 9.2.7.2.686 231.3432033 1 2020-12-09 2020-12-09 Telephone [facility], 1.2.840.1 [id number] Methodi 00:00:00 00:00:00 Sarai CorbinChelsie 88722.1.1 316 s t 3.430.2.7 Hospit a .3.298442 l .8 2020-12-08 2020-12-08 [facility], 1.2.840.1 [id number] 2100 975726 Methodi 12:35:54 23:59:00 Encounter Ray 76529.1.[address] 3.430.2.7 Hospit a .3.331323 l .8 2020-12-08 2020-12-08 [facility], 1.2.840.1 [id number] 15461 Methodi 17:25:00 17:30:[address] 3.430.2.7 Hospit a .3.477886 l .8 2020-12-08 2020-12-08 Office [facility], 1.2.840.1 [id number] 79861 00704 Methodi 10:30:00 11:39:56 Visit Ray 57709.1.[address] 3.430.2.7 Hospit a .3.017828 l .8 2020-12-08 2020-12-08 Travel 1.2.840.1 1.2.652.092 1564 127044 Methodi 00:00:00 00:00:[address] 3.430.2.7 0.2.7.3.698 Ho spita .3.425119 084.8 l .8 2020-12-02 2020-12-02 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 Santiago Cardenas 1.2.840.1 [id number] Univers 10:20:06 10:36:19 Visit [facility] 42281.1.1 ity of 3.104.2.7 [place] .3.161011 Medica l .8 Branch 2020-12-02 2020-12-02 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 Yohan Cardenasrey 1.2.840.1 [id number] [facility] 10:20:06 10:36:19 Visit [facility] 92096.1.1 ity of 3.104.2.7 [place] .3.465643 Medica l .8 [place] 2020-12-02 2020-12-02 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 [facility] UNIVERSIT 1.2.840.114 8 [id number] 10:20:06 10:36:[address] [facility] 350.1.13.10 [facility] 4.2.7.2.686 651.8440111 [facility] 2020-12-02 2020-12-02 Office Ronald, 1.2.840.4 [id number] 70115 528 Univers 08:31:37 09:01:37 Visit Santiago 13292.1.1 ity of 3.104.2.7 [place] .3.693328 Medica l .8 [place] 2020-12-02 2020-12-02 Outpatient R RONALD, [facility] [id number] Univers 09:00:00 09:00:00 SANTIAGO itcharlie of [facility] 2020-11-25 2020-11-25 Office Devin, 1.2.840.6 [id number] 87414 865 Univers 11:06:30 11:58:14 Visit Robbi Hairston 80752.1.1 i ty of 3.104.2.7 [place] .3.068824 Medica l .8 Branch 2020-11-25 2020-11-25 Office Devin, 1.2.840.0 [id number] 51182 865 Univers 11:06:30 11:58:14 Visit Robbi Hairston 74047.1.1 i ty of 3.104.2.7 [place] .3.409167 Medica l .8 [place] 2020-11-25 2020-11-25 [facility] 1.2.840.114 [id number] 11:06:30 11:58:14 Visit Robbi Hairston [employer] 350.1.13.10 [facility] 4.2.7.2.686 MATERNAL 115.2135029 & CHILD [address] [place] [address] 2020-11-25 2020-11-25 Outpatient R [facility] [id number] Univers 11:00:00 11:00:00 ity of [facility] 2020-11-25 2020-11-25 Telephone Devin, 1.2.840.5 [id number] 855 19584 Univers 00:00:00 00:00:00 Robbi Hairston 10164.1.1 i ty of 3.104.2.7 [place] .3.633129 Medica l .8 [place] 2020-11-25 2020-11-25 Refill East, 1.2.840.6 [id number] 98559 592 Univers 00:00:00 00:00:00 Santiago 86376.1.1 ity of 3.104.2.7 [place] .3.000975 Medica l .8 [place] 2020-11-25 2020-11-25 Travel 1.2.840.1 1.2.568.685 0135 0247 Univers 00:00:00 00:00:00 46361.1.1 350.1.13.10 ity of 3.104.2.7 4.2.7.3.698 [place] .3.662324 084.8 Medica l .8 [place] 2020-11-25 2020-11-25 Orders Doctor 1.2.840.8 [id number] 40024 064 Univers 00:00:00 00:00:00 Only Unassigned, 37530.1.1 ity of [place] 3.104.2.7 [place] .3.266058 Medica l .8 [place] 2020-11-25 2020-11-25 Telephone Devin, 1.2.840.0 [id number] 855 83643 Univers 00:00:00 00:00:00 Roshunda R 79171.1.1 i ty of 3.104.2.7 [place] .3.160788 Medica l .8 Branch 2020-11-25 2020-11-25 Refill East, 1.2.840.1 [id number] 58931 592 Univers 00:00:00 00:00:00 Santiago 75518.1.1 ity of 3.104.2.7 [place] .3.650694 Medica l .8 Branch 2020-11-25 2020-11-25 Travel 1.2.840.1 1.2.336.502 9793 0247 Univers 00:00:00 00:00:00 53639.1.1 350.1.13.10 ity of 3.104.2.7 4.2.7.3.698 [place] .3.558123 084.8 Medica l .8 Branch 2020-11-25 2020-11-25 Orders Doctor 1.2.840.2 [id number] 55228 064 Univers 00:00:00 00:00:00 Only Unassigned, 08610.1.1 ity of [place] 3.104.2.7 [place] .3.797525 Medica l .8 [place] 2020-11-25 2020-11-[facility] 1.2.506.611 9581 4592 00:00:00 00:00:00 [facility] 350.1.13.10 CLINICS 4.2.7.2.686 560.6582138 089 2020-11-25 2020-11-25 [facility] 1.2.652.077 6330 0821 00:00:00 00:00:00 Robbi R [employer] 350.1.13.10 REGIONAL 4.2.7.2.686 MATERNAL 771.3777697 & CHILD [address] [place] [address] 2020-11-14 2020-11-14 Abstract Clark, 1.2.840.1 [id number] 03139 19595 Methodi 00:00:00 00:00:[address] 3.430.2.7 Hospit a .3.868825 l .8 2020-11-14 2020-11-14 Telephone Clark, 1.2.840.1 [id number] 2100 189880 Method 00:00:00 00:00:[address] 3.430.2.7 Hospit a .3.699717 l .8 2020-11-12 2020-11-12 Outpatient R RONALD [facility] [id number] [facility] 08:30:00 08:30:00 SANTIAGO barbosa [facility] 2020-11-07 2020-11-07 Telephone Agustina Ortiz UTP 6400 1.2.840.11 4 [id number] [place] 00:00:00 00:00:[address] 350.1.13.58 Health 9.2.7.2.686 588.5426130 1 2020-11-07 2020-11-07 Telephone Diana UTP 6400 1.2.840.114 124 675388 00:00:00 00:00:[address] 350.1.13.58 9.2.7.2.686 893.3467932 1 2020-10-31 2020-10-31 Office Hematporay, UTP 6400 1.2.840.114 12 [id number] [place] 07:54:00 09:45:[address] 350.1.13.58 Health 9.2.7.2.686 840.9432811 1 2020-10-30 2020-10-30 Abstract Rody Maguire UTP 6400 1.2.840.1 14 [id number] [place] 00:00:00 00:00:[address] 350.1.13.58 Health 9.2.7.2.686 910.8836932 1 2020-10-29 2020-10-29 Refill Ronald, 1.2.840.0 [id number] 10302 400 [facility] 00:00:00 00:00:00 Santiago 79716.1.1 [facility] 3.104.2.7 [place] .3.562089 Medica l 8 [place] 2020-10-29 2020-10-29 Refill East, 1.2.840.0 [id number] 54842 400 Univers 00:00:00 00:00:00 Santiago 28497.1.1 ity of 3.104.2.7 [place] .3.133179 Medica l .8 [place] 2020-10-27 2020-10-27 Telephone Jailyn, 1.2.840.8 [id number] 21 [id number] Methodi 00:00:00 00:00:[address] 3.430.2.7 Hospit a .3.166777 l .8 2020-10-24 2020-10-24 Telephone Clark, 1.2.840.1 [id number] 2099 724428 Methodi 00:00:00 00:00:[address] 3.430.2.7 Hospit a .3.313788 l .8 2020-10-22 2020-10-22 Outpatient R SELF, [facility] [id number] 868 Univers 13:00:00 13:00:00 GADIEL barbosa [facility] 2020-10-22 2020-10-22 Travel 1.2.840.1 1.2.926.951 1049 3839 Univers 00:00:00 00:00:00 33017.1.1 350.1.13.10 ity of 3.104.2.7 4.2.7.3.698 [place] .3.224061 084.8 Medica l .8 [place] 2020-10-22 2020-10-22 Travel 1.2.840.1 1.2.842.797 5165 3839 Univers 00:00:00 00:00:00 65332.1.1 350.1.13.10 ity of 3.104.2.7 4.2.7.3.698 [place] .3.057603 084.8 Medica l .8 [place] 2020-10-13 2020-10-13 Outpatient R SELF, [facility] [id number] Univers 08:45:00 08:45:[address] [facility] 2020-10-06 2020-10-12 Telemedici [facility], 1.2.840.1 [id number] Methodi 15:30:00 00:08:46 ne Ray 47601.1.[address] 3.430.2.7 Hospit a .3.275082 l .8 2020-09-30 2020-09-30 [facility], 1.2.840.0 [id number] Methodi 00:00:00 00:00:[address] 3.430.2.7 Hospit a .3.818889 l .8 2020-09-21 2020-09-21 Travel 1.2.840.1 1.2.532.206 1719 053350 Methodi 00:00:00 00:00:[address] 3.430.2.7 0.2.7.3.698 spita .3.013135 084.8 l .8 2020-09-06 2020-09-06 [facility] 1.2.840.1 [id number] 96163 00485 Methodi 17:42:30 23:59:[address] 3.430.2.7 Hospit a .3.853111 l .8 2020-09-06 2020-09-06 [facility], 1.2.840.1 [id number] 2100 [id number] Methodi 16:50:00 17:41:00 Encounter Ray [address]896.1.[address] 3.430.2.7 Hospit a .3.081427 l .8 2020-09-05 2020-09-05 [facility], 1.2.840.1 [id number] [id number] Methodi 09:17:00 19:45:00 Encounter Ray [address]166.1.[address] 3.430.2.7 Hospit a .3.117462 l .8 2020-09-05 2020-09-05 [facility], 1.2.840.1 [id number] 74103 Methodi 11:30:00 13:15:[address] 3.430.2.7 Hospit a .3.980909 l .8 2020-09-05 2020-09-05 Anesthesia Remigio, 1.2.840.1 [id number] Methodi 11:27:00 12:20:00 Event Kirit 56279.1.1 243 s t V. 3.430.2.7 Hospit a .3.330117 l .8 2020-09-05 2020-09-05 Travel 1.2.840.1 1.2.346.012 3384 304628 Methodi 00:00:00 00:00:[address] 3.430.2.7 0.2.7.3.698 Ho spita .3.109864 084.8 l .8 2020-09-04 2020-09-04 Telephone [place], 1.2.840.1 [id number] Methodi 00:00:00 00:00:00 Sarai M. 35229.1.1 762 s t 3.430.2.7 Hospit a .3.423888 l .8 2020-09-02 2020-09-02 [facility], 1.2.840.1 [id number] Methodi 00:00:00 00:00:00 Sarai M. 71535.1.1 344 s t 3.430.2.7 Hospit a .3.103539 l .8 2020-08-29 2020-08-30 Bedded [facility] [id number] Memoria 10:20:00 14:10:00 Outpatient r Marty 00 l [facility] 2020-08-29 2020-08-30 Outpatient [facility], [facility] CAR [address] [facility] 05:20:00 09:10:00 [place] 2020-08-06 2020-08-06 Office [place], 1.2.840.1 [id number] [facility] 08:03:23 09:17:49 Visit Santiago 18975.1.1 ity of 3.104.2.7 [place] .3.004495 Medica l .8 [place] 2020-08-06 2020-08-06 Outpatient R EAST, [facility] [id number] Univers 08:30:00 08:30:00 SANTIAGO ity of [facility] 2020-07-14 2020-07-14 Outpatient R SELF, [facility] [id number] Univers 09:30:00 09:30:00 GADIEL ity o f [facility] 2020-07-14 2020-07-14 Travel 1.2.840.1 1.2.176.594 6029 [id number] Univers 00:00:00 00:00:00 02165.1.1 350.1.13.10 ity of 3.104.2.7 4[place].3.698 [place] .3.480950 084.8 Medica l .8 [place] 2020-07-14 2020-07-14 Orders Doctor 1.2.840.2 [id number] Univers 00:00:00 00:00:00 Only Unassigned, 57083.1.1 ity of [place] 3.104.2.7 [place] .3.278988 Medica l .8 [place] 2020-06-16 2020-06-16 Outpatient R SELF, [facility] [id number] Univers 08:00:00 08:00:00 GADIEL barbosa o f [facility] 2020-06-06 2020-06-06 Telephone Ronald, 1.2.840.4 [id number] [id number] Univers 00:00:00 00:00:00 [place] 94806.1.1 ity of 3.104.2.7 [place] .3.213111 Medica l .8 [place] 2020-06-04 2020-06-04 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 350.1.13.10 i ty of CLINICS 4.2.7.2.686 Richi bach 054.3015352 [facility] 089 [place] 2020-06-04 2020-06-04 Outpatient R [facility] [id number] Univers 08:30:00 08:30:00 SANTIAGO ity [facility] 2020-06-04 2020-06-04 Orders Doctor 1.2.840.7 [id number] Univers 00:00:00 00:00:00 Only Unassigned, 10131.1.1 ity of [place] 3.104.2.7 [place] .3.378404 Medica l .8 [place] 2020-05-19 2020-05-19 Telephone [place], 1.2.840.6 [id number] Univers 00:00:00 00:00:00 [place] 45806.1.1 ity of 3.104.2.7 [place] .3.236574 Medica l .8 [place] 2020-04-24 2020-04-24 Telephone [place], 1.2.840.8 [id number] Univers 00:00:00 00:00:00 Asntiago 83534.1.1 ity of 3.104.2.7 [place] .3.490662 Medica l .8 [place] 2020-04-14 2020-04-14 Outpatient R [facility] [id number] Univers 09:00:00 09:00:00 [facility] 2020-04-14 Telephone [place], 1.2.840.3 [id number] Univers 00:00:00 00:00:00 [place] 99585.1.1 ity of 3.104.2.7 [place] .3.584116 Medica l .8 [place] 2020-03-31 2020-03-31 Outpatient R [facility], [facility] [id number] Univers 08:30:00 08:30:00 [facility] 2020-03-03 Out[facility] [facility], [facility] [id number] Univers 08:00:00 08:00:00 GADIEL maciely o f [facility] 2020-03-03 2020-03-03 Outpatient R SELF, [facility] [id number] Univers 08:00:00 08:00:00 GADIEL maciely o f [facility] 2020-03-03 2020-03-03 Travel 1.2.840.1 1.2.861.746 [id number] Univers 00:00:00 00:00:00 58349.1.1 350.1.13.10 ity of 3.104.2.7 [place].3.698 [place] .3.395419 084.8 [facility] [place] 2020-02-06 2020-02-06 Telephone [place], 1.2.840.1 [id number] Univers 00:00:00 00:00:00 [place] 93893.1.1 ity of 3.104.2.7 [place] .3.171017 [facility] [place] 2020-01-26 2020-01-26 Emergency Caridad, 1.2.840.5 [id number] Univers 10:03:00 13:05:00 Cynise 51999.1.1 ity of 3.104.2.7 [place] .3.764828 [facility]ica l .[facility] 2020-01-26 2020-01-26 Travel 1.2.840.1 1.2.653.634 [id number] Univers 00:00:00 00:00:00 99923.1.1 350.1.13.10 ity of 3.104.2.[place]3.698 [place] .3.076536 084.8 [facility] [place] 2020-01-25 2020-01-25 Outpatient R EAST, [facility] [id number] Univers 08:30:00 08:30:00 SANTIAGO ity of [facility] 2020-01-25 2020-01-25 Telemedici [place], 1.2.840.2 [id number] Univers 07:36:49 08:06:49 ne Visit [place] 11822.1.1 ity of 3.104.2.7 [place] .3.668209 [facility] [place] 2020-01-16 2020-01-16 Outpatient R EAST, [facility] [id number] Univers 08:00:00 08:00:00 SANTIAGO barbosa [facility] 2020-01-16 2020-01-16 Telephone [place], 1.2.840.4 [id number] Univers 00:00:00 00:00:00 [place] 85433.1.1 ity of 3.104.2.7 [place] .3.400609 [facility] [place] 2020-01-14 2020-01-14 Outpatient R SELF, [facility] [id number] Univers 08:00:00 08:00:00 GADIEL rodas [facility] 2019-12-31 2019-12-31 Outpatient R SELF, [facility] [id number] Univers 08:45:00 08:45:00 GADIEL rodas [facility] 2019-10-17 2019-10-17 Outpatient R EAST, [facility] [id number] Univers 08:30:00 08:30:00 SANTIAGO barbosa [facility] 2019-10-12 2019-10-12 Outpatient R EAST, [facility] [id number] Univers 13:00:00 13:00:00 SANTIAGO barbosa [facility] 2019-10-12 2019-10-12 Telemedici [place], 1.2.840.7 [id number] Univers 07:38:30 08:08:30 ne Visit [place] 82740.1.1 ity of 3.104.2.7 [place] .3.856163 [facility] [place] 2019-10-08 2019-10-08 Outpatient R SELF, [facility] [id number] Univers 10:15:00 10:15:00 GADIEL rodas [facility] 2019-10-03 2019-10-03 Case Assman, 1.2.840.7 [id number] Univers 00:00:00 00:00:00 Management Michael Corbin 66365.1.1 i ty of 3.104.2.7 [place] .3.691752 [facility] [place] 2019-09-27 2019-09-27 Telephone [place], 1.2.840.7 [id number] Univers 00:00:00 00:00:00 [place] 01711.1.1 ity of 3.104.2.7 [place] .3.936405 [facility] [place] 2019-09-04 2019-09-04 Refill [place], 1.2.840.0 [id number] Univers 00:00:00 00:00:00 [place] 97698.1.1 ity of 3.104.2.7 [place] .3.163997 [facility] [place] 2019-07-24 2019-07-24 Outpatient R [facility] [id number] Univers 08:30:00 08:30:00 SANTIAGO ity of [facility] 2019-07-17 2019-07-17 Outpatient R EAST, [facility] [id number] Univers 10:00:00 10:00:00 SANTIAGO ity of [facility] 2019-06-15 2019-06-15 Telephone East, 1.2.840.1 [id number] Univers 00:00:00 00:00:00 [place] 62888.1.1 ity of 3.104.2.7 [place] .3.941771 [facility] [place] 2019-06-13 2019-06-13 Telephone Team, [facility] 1.2.840.8 [id number] Univers 00:00:00 00:00:00 Health 14179.1.1 [place] .3.364641 [facility] [facility] [place] 2019-05-10 2019-05-10 Refill [place], 1.2.840.5 [id number] Univers 00:00:00 00:00:00 [place] 82154.1.1 ity of 3.104.2.7 [place] .3.875608 [facility] [place] 2019-05-09 2019-05-09 Refill [place], 1.2.840.5 [id number] Univers 00:00:00 00:00:00 [place] 48329.1.1 ity of 3.104.2.7 [place] .3.912907 [facility] [place] 2019-04-30 2019-04-30 Outpatient R SELF, [facility] [id number] Univers 10:15:00 10:33:05 GADIEL ity o f [facility] 2019-04-18 2019-04-18 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 [place] Cardenas 1.2.840.1 [id number] Univers 10:00:39 10:44:31 Visit [facility] 66824.1.1 ity of 3.104.2.7 [place] .3.396327 [facility] [place] 2019-04-18 2019-04-18 Outpatient R RONALD, [facility] [id number] Univers 10:00:00 10:44:31 SANTIAGO ity of [facility] 2019-04-18 2019-04-18 Office Ronald, 1.2.840.1 [id number] Univers 08:27:44 09:53:27 Visit [place] 40673.1.1 ity of 3.104.2.7 [place] .3.997305 Medica l .[address] [place] [address] 2019-04-18 2019-04-18 Orders Doctor 1.2.840.1 [id number] Univers 00:00:00 00:00:00 Only Unassigned, 12765.1.1 ity of [place] 3.104.2.7 [place] .3.726503 [facility] [place] 2019-04-11 2019-04-11 Refill Ronald, 1.2.840.7 [id number] Univers 00:00:00 00:00:00 [place] 13990.1.1 ity of 3.104.2.7 [place] .3.681499 [facility] [place] 2019-04-09 2019-04-09 Refill Ronald, 1.2.840.4 [id number] Univers 00:00:00 00:00:00 [place] 76588.1.1 ity of 3.104.2.7 [place] .3.026441 [facility] [place] 2019-04-03 2019-04-03 Telephone Team, [facility] 1.2.840.6 [id number] Univers 00:00:00 00:00:00 Health 62461.1.1 [place] .3.150515 [facility] [place] [facility] [place] 2019-03-27 2019-03-27 Telephone Self, 1.2.840.6 [id number] Univers 00:00:00 00:00:00 Gadiel 33291.1.1 ity of 3.104.2.7 [place] .3.726125 Medica l .[facility] 2019-01-17 2019-01-17 Office East, 1.2.840.6 [id number] Univers 07:37:21 10:32:51 Visit [place] 70168.1.1 ity of 3.104.2.7 [place] .3.308712 Medica l .[facility] 2019-01-04 2019-01-12 Office Eveline Hansen 1.2.840.0 [id number] Univers 11:19:32 11:08:05 Visit Mariela 02900.1.1 ity of 3.104.2.7 [place] .3.956663 Med[facility] l .[facility] 2019-01-10 2019-01-10 Telephone Stanislav, 1.2.840.9 [id number] Univers 00:00:00 00:00:00 Eladio Inman 99138.1.1 ity of 3.104.2.7 [place] .3.490907 [facility] 2018-12-18 2018-12-18 Office Dallinaliviamagaliryan, 1.2.840.6 [id number] Univers 08:48:45 09:13:43 Visit Leyda 73025.1.1 it y of 3.104.2.7 [place] .3.945597 [facility] l .[facility] 2018-10-30 2018-10-30 Telephone Ronald, 1.2.840.5 [id number] Univers 00:00:00 00:00:00 [place] 11383.1.1 ity of 3.104.2.7 [place] .3.930593 Medica l .[facility] 2018-10-23 2018-10-23 Orders Doctor 1.2.840.9 [id number] Univers 00:00:00 00:00:00 Only Unassigned, 36673.1.1 ity of [place] 3.104.2.7 [place] .3.539695 [facility] [place] 2018-10-23 2018-10-23 Nurse Selvin, 1.2.840.9 [id number] Univers 00:00:00 00:00:00 Triage Stefanie 29262.1.1 ity of 3.104.2.7 [place] .3.913448 Medica l .[facility] 2018-10-23 2018-10-23 Telephone Self, 1.2.840.9 [id number] Univers 00:00:00 00:00:00 Gadiel 17366.1.1 ity of 3.104.2.7 [place] .3.365578 [facility] [place] 2018-10-20 2018-10-20 Telephone Self, 1.2.840.7 [id number] Univers 00:00:00 00:00:00 Gadiel 57064.1.1 ity of 3.104.2.7 [place] .3.806059 [facility] [place] Results Test Description Test Time Test Comments Results Result Comments Source COMP. METABOLIC PANEL (90699) 2022-05-06 22:42:55 Test Item Value Reference Range Interpretation Comme nts NA (test code = 7731571683) 137 mmol/L 135-145 K (test code = 2808740577) 3.2 mmol/L 3.5-5.0 L CL (test code = 9832650168) 100 mmol/L 98-108 CO2 TOTAL (test code = 1892970584) 23 mmol/L 23-31 AGAP (test code = 3564186792) 2-16 BUN (test code = 7161795051) 41 mg/dL 7-23 H GLUCOSE (test code = 2888124039) 98 mg/dL 70-110 CREATININE (test code = 1.55 mg/dL 0.50-1.04 H 8182201408) TOTAL BILI (test code = 0.8 mg/dL 0.1-1.7 1365105848) CALCIUM (test code = 8492575349) 8.3 mg/dL 8.6-10.6 L T PROTEIN (test code = 3882331169) 6.9 g/dL 6.3-8.2 ALBUMIN (test code = 2243971407) 3.9 g/dL 3.5-5.0 ALK PHOS (test code = 4259603699) 89 U/L 34-122 ALTv (test code = 1742-6) 101 U/L 5-35 H AST(SGOT) (test code = 4864052508) 203 U/L 13-40 H eGFR (test code = 0437537159) mL/min/1.73m2 KYLE (test code = KYLE) Association [...] tests). Lab Interpretation (test code = Abnormal 44992-6) [facility] WITH [id number] 22:33:52 Test Item Value Reference Range Interpretation [...] RDW-SD (test code = 46.3 fL 39.0-49.9 14312-9) RDW-CV (test code = 13.5 % 12.0-15.5 788-0) PLT (test code = See_Comment L [Automated 777-3) message] The sy stem which generated this result transmitted reference range : 166 - 358 10*3/ ?L. The reference r abbey was not used to interpret this result as normal/abnormal . MPV (test code = 9.5 fL 9.5-12.9 05702-5) NRBC/100 WBC (test See_Comment [Automat ed code = 9254628636) message] The system which generated this result transmitted reference range : 0.0 - 10.0 /100 WBCs. The refer ence range was not u sed to interpret th is result as normal/abnormal . NRBC x10^3 (test code See_Comment [Auto mated = 1722612696) message] The s ystem which generated this result transmitted reference range : 10*3/?L. The reference range was not used to interpret this result as normal/abnormal . GRAN MAT (NEUT) % 58.3 % (test code = 770-8) IMM GRAN % (test code 0.80 % = 8296294313) LYMPH % (test code = 28.1 % 736-9) MONO % (test code = 12.0 % 5905-5) EOS % (test code = 0.5 % 713-8) BASO % (test code = 0.3 % 706-2) GRAN MAT x10^3(ANC) 2.29 10*3/uL 1.88-7.09 (test code = 2251874539) IMM GRAN x10^3 (test 0.03 10*3/uL 0.00-0.06 code = 6246715293) LYMPH x10^3 (test code 1.10 10*3/uL 1.32-3.29 L = 731-0) MONO x10^3 (test code 0.47 10*3/uL 0.33-0.92 = 742-7) EOS x10^3 (test code = 0.03-0.39 L 711-2) BASO x10^3 (test code 0.01-0.07 = 704-7) Lab Interpretation Abnormal (test code = 40861-1) [facility] METABOLIC PANEL (NA, K, CL, CO2, GLUCOSE, BUN, CREATININE, CA)2022-04-22 21:43:42 Test Item Value Reference Range Interpretation Comments NA (test code = 142 mmol/L 135-145 9449344731) K (test code = 3.5 mmol/L 3.5-5.0 6622524107) CL (test code = 106 mmol/L 98-108 2206068270) CO2 TOTAL (test code = 26 mmol/L 23-31 0528628051) AGAP (test code = 2-16 9935361662) BUN (test code = 29 mg/dL 7-23 H 8019395385) GLUCOSE (test code = 84 mg/dL 70-110 7976201138) CREATININE (test code = 1.16 mg/dL 0.50-1.04 H 5190404080) CALCIUM (test code = 8.2 mg/dL 8.6-10.6 L 0479601955) eGFR (test code = mL/min/1.73m2 9216289363) KYLE (test code = KYLE) Association of [...] tests). Lab Interpretation Abnormal (test code = 87312-6) [facility] WITH [id number] 21:33:01 Test Item Value Reference Range Interpretation [...] (test code = 50.7 fL 39.0-49.9 H 23567-5) RDW-CV (test code = 14.6 % 12.0-15.5 788-0) PLT (test code = See_Comment L [Automated 777-3) message] The sy stem which generated this result transmitted reference range : 166 - 358 10*3/ ?L. The reference r abbey was not used to interpret this result as normal/abnormal . MPV (test code = 8.8 fL 9.5-12.9 L 86275-3) NRBC/100 WBC (test See_Comment [Automat ed code = 3498468027) message] The system which generated this result transmitted reference range : 0.0 - 10.0 /100 WBCs. The refer ence range was not u sed to interpret th is result as normal/abnormal . NRBC x10^3 (test code See_Comment [Auto mated = 1217730887) message] The s ystem which generated this result transmitted reference range : 10*3/?L. The reference range was not used to interpret this result as normal/abnormal . GRAN MAT (NEUT) % 70.9 % (test code = 770-8) IMM GRAN % (test code 0.50 % = 8837671885) LYMPH % (test code = 17.4 % 736-9) MONO % (test code = 9.0 % 5905-5) EOS % (test code = 1.7 % 713-8) BASO % (test code = 0.5 % 706-2) GRAN MAT x10^3(ANC) 4.60 10*3/uL 1.88-7.09 (test code = 5647982709) IMM GRAN x10^3 (test 0.03 10*3/uL 0.00-0.06 code = 5481998109) LYMPH x10^3 (test code 1.13 10*3/uL 1.32-3.29 L = 731-0) MONO x10^3 (test code 0.58 10*3/uL 0.33-0.92 = 742-7) EOS x10^3 (test code = 0.11 10*3/uL 0.03-0.39 711-2) BASO x10^3 (test code 0.03 10*3/uL 0.01-0.07 = 704-7) Lab Interpretation Abnormal (test code = 79792-6) [facility] CULTURE [id number] 06:01:07 Test Item Value Reference Range Interpretation Comments Blood Culture-Aerobic No organisms No growth Previo us (test code = 58799-1) isolated prelim inary verified result was Culture [...] Culture-Anaerobic isolated preliminar y (test code = 94893-1) verifi ed result was Culture In Progress [...] CDT Lab Interpretation Normal (test code = 00639-0) [facility] CULTURE [id number] 06:01:07 Test Item Value Reference Range Interpretation Comments Blood Culture-Aerobic No organisms No growth Previo us (test code = 93103-9) isolated prelim inary verified result was Culture [...] Culture-Anaerobic isolated preliminar y (test code = 24394-8) verifi ed result was Culture In Progress [...] CDT Lab Interpretation Normal (test code = 84522-6) [facility] [id number] 06:01:07 Test Item Value Reference Range Interpretation Comments Blood Culture-Aerobic No organisms No growth Previo us (test code = 40556-2) isolated prelim inary verified result was Culture [...] Culture-Anaerobic isolated preliminar y (test code = 71604-6) verifi ed result was Culture In Progress [...] CDT Lab Interpretation Normal (test code = 33866-5) [facility] [id number] 10:49:10 Test Item Value Reference Range Interpretation Comments NT-proBNP (test code 2660 pg/mL See_Comment H [Autom ated = 5789527060) message] The system which generated this result transmitted reference range : <=125. The reference range was not used to interpret this result as normal/abnormal . KYLE (test code = KYLE) Biotin has been reported to cause a negative bias, interpret results relative to patient's use of biotin. Lab Interpretation Abnormal (test code = 15978-4) [facility] [id number] 10:49:10 Test Item Value Reference Range Interpretation Comments NT-proBNP (test code 2660 pg/mL See_Comment H [Autom ated = 2870588378) message] The system which generated this result transmitted reference range : <=125. The reference range was not used to interpret this result as normal/abnormal . KYLE (test code = KYLE) Biotin has been reported to cause a negative bias, interpret results relative to patient's use of biotin. Lab Interpretation Abnormal (test code = 37641-3) [facility] METABOLIC PANEL (NA, K, CL, CO2, GLUCOSE, BUN, CREATININE, CA)2022-02-15 10:44:07 Test Item Value Reference Range Interpretation Comments NA (test code = 134 mmol/L 135-145 L 9744995127) K (test code = 3.2 mmol/L 3.5-5 L 7099878742) CL (test code = 98 mmol/L 98-108 1298491733) CO2 TOTAL (test code = 27 mmol/L 23-31 1800012832) AGAP (test code = 2-16 1668603488) BUN (test code = 19 mg/dL 7-23 0994544231) GLUCOSE (test code = 102 mg/dL 70-110 1132228676) CREATININE (test code = 0.95 mg/dL 0.5-1.04 1845733996) CALCIUM (test code = 8.5 mg/dL 8.6-10.6 L 9266136291) eGFR (test code = mL/min/1.73m2 3230194703) KYLE (test code = KYLE) Association of [...] tests). Lab Interpretation Abnormal (test code = 16336-2) [facility]2022-09-26 10:44:07 Test Item Value Reference Range Interpretation Comments MAGNESIUM (test code = 9515610307) 1.8 mg/dL 1.7-2.4 Lab Interpretation (test code = Normal 19260-5) [facility]2022-09-26 10:44:07 Test Item Value Reference Range Interpretation Comments MAGNESIUM (test code = 3579013090) 1.8 mg/dL 1.7-2.4 Lab Interpretation (test code = Normal 99454-5) [facility] (NA, K, CL, CO2, GLUCOSE, BUN, CREATININE, CA)2022-02-15 10:44:07 Test Item Value Reference Range Interpretation Comments NA (test code = 134 mmol/L 135-145 L 8816586944) K (test code = 3.2 mmol/L 3.5-5.0 L 1796508351) CL (test code = 98 mmol/L 98-108 0516765144) CO2 TOTAL (test code = 27 mmol/L 23-31 1084804177) AGAP (test code = 2-16 5498065354) BUN (test code = 19 mg/dL 7-23 4387252654) GLUCOSE (test code = 102 mg/dL 70-110 0543059199) CREATININE (test code = 0.95 mg/dL 0.50-1.04 9740088208) CALCIUM (test code = 8.5 mg/dL 8.6-10.6 L 5148947918) eGFR (test code = mL/min/1.73m2 7288357799) KYLE (test code = KYLE) Association of [...] tests). Lab Interpretation Abnormal (test code = 29764-9) [facility] WITH [id number] 10:12:06 Test Item Value Reference Range Interpretation Comments WBC (test code = See_Comment L [Automated 8290-2) message] The sy stem which generated this result transmitted reference range : 4.30 - 11.10 10*3/?L. The reference range was not used to interpret this result as normal/abnormal . RBC (test code = See_Comment L [Automated 959-8) message] The sy stem which generated this [...] RDW-SD (test code = 47.8 fL 39-49.9 24236-0) RDW-CV (test code = 15.2 % 12-15.5 788-0) PLT (test code = See_Comment L [Automated 777-3) message] The sy stem which generated this result transmitted reference range : 166 - 358 10*3/ ?L. The reference r abbey was not used to interpret this result as normal/abnormal . MPV (test code = 8.9 fL 9.5-12.9 L 38251-9) NRBC/100 WBC (test See_Comment [Automat ed code = 1070369145) message] The system which generated this result transmitted reference range : 0.0 - 10.0 /100 WBCs. The refer ence range was not u sed to interpret th is result as normal/abnormal . NRBC x10^3 (test code See_Comment [Auto mated = 8525280685) message] The s ystem which generated this result transmitted reference range : 10*3/?L. The reference range was not used to interpret this result as normal/abnormal . GRAN MAT (NEUT) % 65.9 % (test code = 770-8) IMM GRAN % (test code 0.30 % = 1315102329) LYMPH % (test code = 21.0 % 736-9) MONO % (test code = 10.1 % 5905-5) EOS % (test code = 2.4 % 713-8) BASO % (test code = 0.3 % 706-2) GRAN MAT x10^3(ANC) 2.49 10*3/uL 1.88-7.09 (test code = 9847845865) IMM GRAN x10^3 (test 0-0.06 code = 5649714831) LYMPH x10^3 (test code 0.79 10*3/uL 1.32-3.29 L = 731-0) MONO x10^3 (test code 0.38 10*3/uL 0.33-0.92 = 742-7) EOS x10^3 (test code = 0.09 10*3/uL 0.03-0.39 711-2) BASO x10^3 (test code 0.01-0.07 = 704-7) Lab Interpretation Abnormal (test code = 67884-1) [facility] WITH [id number] 10:12:06 Test Item Value Reference Range Interpretation [...] RDW-SD (test code = 47.8 fL 39.0-49.9 81753-0) RDW-CV (test code = 15.2 % 12.0-15.5 788-0) PLT (test code = See_Comment L [Automated 777-3) message] The sy stem which generated this result transmitted reference range : 166 - 358 10*3/ ?L. The reference r abeby was not used to interpret this result as normal/abnormal . MPV (test code = 8.9 fL 9.5-12.9 L 24787-2) NRBC/100 WBC (test See_Comment [Automat ed code = 0933236651) message] The system which generated this result transmitted reference range : 0.0 - 10.0 /100 WBCs. The refer ence range was not u sed to interpret th is result as normal/abnormal . NRBC x10^3 (test code See_Comment [Auto mated = 1160025036) message] The s ystem which generated this result transmitted reference range : 10*3/?L. The reference range was not used to interpret this result as normal/abnormal . GRAN MAT (NEUT) % 65.9 % (test code = 770-8) IMM GRAN % (test code 0.30 % = 1112957367) LYMPH % (test code = 21.0 % 736-9) MONO % (test code = 10.1 % 5905-5) EOS % (test code = 2.4 % 713-8) BASO % (test code = 0.3 % 706-2) GRAN MAT x10^3(ANC) 2.49 10*3/uL 1.88-7.09 (test code = 4310133953) IMM GRAN x10^3 (test 0.00-0.06 code = 4457065206) LYMPH x10^3 (test code 0.79 10*3/uL 1.32-3.29 L = 731-0) MONO x10^3 (test code 0.38 10*3/uL 0.33-0.92 = 742-7) EOS x10^3 (test code = 0.09 10*3/uL 0.03-0.39 711-2) BASO x10^3 (test code 0.01-0.07 = 704-7) Lab Interpretation Abnormal (test code = 99252-1) [facility] WITH [id number] 11:18:28 Test Item Value Reference Range Interpretation Comments WBC (test code = See_Comment L [Automated 8390-2) message] The sy stem which generated this [...] RDW-SD (test code = 49.5 fL 39-49.9 22018-7) RDW-CV (test code = 15.5 % 12-15.5 788-0) PLT (test code = See_Comment L [Automated 777-3) message] The sy stem which generated this result transmitted reference range : 166 - 358 10*3/ ?L. The reference r abbey was not used to interpret this result as normal/abnormal . MPV (test code = 11.4 fL 9.5-12.9 47763-7) IPF % (test code = 8.7 % 1.3-7.7 H Platelet count 4573688687) measured by fluorescence method. NRBC/100 WBC (test See_Comment [Automat ed code = 0712841335) message] The system which generated this result transmitted reference range : 0.0 - 10.0 /100 WBCs. The refer ence range was not u sed to interpret th is result as normal/abnormal . NRBC x10^3 (test code See_Comment [Auto mated = 4060959684) message] The s ystem which generated this result transmitted reference range : 10*3/?L. The reference range was not used to interpret this result as normal/abnormal . GRAN MAT (NEUT) % 62.0 % (test code = 770-8) IMM GRAN % (test code 0.80 % = 5234223626) LYMPH % (test code = 22.2 % 736-9) MONO % (test code = 9.6 % 5905-5) EOS % (test code = 5.1 % 713-8) BASO % (test code = 0.3 % 706-2) GRAN MAT x10^3(ANC) 2.21 10*3/uL 1.88-7.09 (test code = 9002403610) IMM GRAN x10^3 (test 0.03 10*3/uL 0-0.06 code = 6404603710) LYMPH x10^3 (test code 0.79 10*3/uL 1.32-3.29 L = 731-0) MONO x10^3 (test code 0.34 10*3/uL 0.33-0.92 = 742-7) EOS x10^3 (test code = 0.18 10*3/uL 0.03-0.39 711-2) BASO x10^3 (test code 0.01-0.07 = 704-7) POLYCHROMASIA (test 2+ See_Comment [Automa arpit code = 15508-0) message] The system which generated this result [...] . Lab Interpretation Abnormal (test code = 44444-5) [facility] METABOLIC PANEL (NA, K, CL, CO2, GLUCOSE, BUN, CREATININE, CA)2022-02-13 10:39:07 Test Item Value Reference Range Interpretation Comments NA (test code = 136 mmol/L 135-145 0076056882) K (test code = 4.1 mmol/L 3.5-5 8121046679) CL (test code = 102 mmol/L 98-108 9182618324) CO2 TOTAL (test code = 27 mmol/L 23-31 0128961030) AGAP (test code = 2-16 9435070748) BUN (test code = 22 mg/dL 7-23 0962955979) GLUCOSE (test code = 94 mg/dL 70-110 9122609548) CREATININE (test code = 0.94 mg/dL 0.5-1.04 2714430815) CALCIUM (test code = 8.1 mg/dL 8.6-10.6 L 3755510492) eGFR (test code = mL/min/1.73m2 4210194282) KYLE (test code = KYLE) Association of [...] tests). Lab Interpretation Abnormal (test code = 64079-3) [facility] 01:50:10 Test Item Value Reference Range Interpretation Comments Height (test code = in 6324781133) Weight (test code = lbs 0354164118) Systolic BP (test code mmHg = 4936236690) Diastolic BP (test code mmHg = 6109028343) Heart Rate (test code = bpm 3549151573) BSA (test code = 1.85 m2 8430047699) IVS (test code = 1.22 cm 6402985128) Interventricular Septum 1.22 cm Diastolic Thickness by 2D (test code = 2784610) LVIDD (test code = 5.00 cm 6493887496) Left Ventricular End 117.9 mL Diastolic Volume by Teichholz Method (test code = 8370267) LVPWD (test code = 1.22 cm 3969490877) PW (test code = 1.22 cm 0.6-1.5 0205140907) EF(Teich) (test code = 74.60 % 8193236819) LVIDS (test code = 2.80 cm 2059629347) Left Ventricular End 29.9 mL Systolic Volume by Teichholz Method (test code = 6824220) FS (test code = 44 % 1751513119) EF - 2D (test code = 74.60 % 86792759) LVOT diameter (test 2.16 cm code = 6502997003) LVOT area (test code = 3.70 cm2 4184394956) Ao root diam (test code 3.40 cm = 9673766658) Aortic root (test code 3.4 cm = 4393890321) Ao root annulus (test 3.4 cm code = 4320779737) LA size (test code = 3.4 cm 0673503842) TR Peak Spencer (test code 330.0 cm/s = 9967577229) Triscuspid Valve mmHg Regurgitation Peak Gradient (test code = 3573554222) PV REGURGITATION PEAK mmHg GRADIENT (test code = 5656881999) PI dec slope (test code 137.20 cm/s2 = 0096566490) LAV(MOD-sp4) (test code 102.90 mL = 7121208176) MV Peak E Spencer (test 84.1 cm/s code = 6080205943) MV Peak A Spencer (test 40.1 cm/s code = 2173698410) E/A ratio (test code = ratio 4142688305) MV valve area p 1/2 3.70 cm2 method (test code = 6419294159) MV dec slope (test code 413.00 cm/s2 = 7830058248) MV P1/2t max spencer (test 83.70 cm/s code = 9637836778) MV Prop V (test code = 41.80 cm/s 6842562390) Tapse (test code = 1.83 cm 4789801190) LVOT stroke volume 96.90 cm3 (test code = 0442444430) LVOT peak spencer (test 125.5 cm/s code = 2295480503) LVOT mn grad (test code mmHg = 8986737847) AV LVOT peak gradient mmHg (test code = 3821150119) LVOT peak VTI (test 26.4 cm code = 0876328520) LV V1 mean (test code = 78.10 cm/s 6458050729) Aortic valve mean 103.7 cm/s velocity (test code = 4103406087) Ao peak spencer (test code 165.6 cm/s = 3690719467) Ao VTI (test code = 37.2 cm 6853455028) AV area by cont VTI 2.6 cm2 (test code = 6768443640) AV area peak spencer (test 2.8 cm2 code = 9390219630) Ao max PG (test code = 11.00 mm[Hg] 0797565611) AV peak gradient (test mmHg code = 8709264783) AV valve area (test 2.60 cm2 code = 4606365904) AV mean gradient (test mmHg code = 9241570583) LA Volume Index (BP) 55.2 mL/m2 (test code = 2537973020) LA volume (BP) (test 102.1 mL code = 2135083353) LAV(MOD-sp2) (test code 86.10 mL = 1530491357) A2C EF (test code = 61.20 % 5497989894) EF(sp2-el) (test code = 61.60 % 2521278359) SV(MOD-sp2) (test code 47.10 mL = 7562407508) LV Diastolic Volume 70.7 mL (BP) (test code = 5294144000) A4C EF (test code = 53.00 % 3899250175) EF(MOD-bp) (test code = 56.70 % 4909752884) EF(sp4-el) (test code = 53.90 % 2895664897) LV Systolic Volume (BP) 30.6 mL (test code = 8361738035) SV(MOD-bp) (test code = 40.10 mL 0807427763) SV(MOD-sp4) (test code 32.40 mL = 1565354086) SV(sp4-el) (test code = 33.10 mL 2864071258) EF (test code = 7500863453) Left Ventricular Stroke 40.1 mL Volume by 2-D Biplane-MOD (test code = 9455529) LV Diastolic Volume 38.2 mL/m2 Index (BP) (test code = 2839295321) LV Systolic Volume 16.5 mL/m2 Index (BP) (test code = 4054458827) Radiology Study observation (narrative) (test code = 67062-3) KYLE (test code = KYLE) ?Left?Ventricle: Left [...] [facility] [id number] 05:45:01 Test Item Value Reference Interpretation Comments Range TROPONIN I (test See_Comment [Automated code = 4439791767) message] The system which generated this result [...] biotin. Lab Interpretation Normal (test code = 26877-8) [facility] ClubN-TERMINAL XNU-YKK6223-19-22 05:41:40 Test Item Value Reference Range Interpretation Comments NT-proBNP (test code 4250 pg/mL See_Comment H [Autom ated = 6580858003) message] The system which generated this result transmitted reference range : <=125. The reference range was not used to interpret this result as normal/abnormal . KYLE (test code = KYLE) Biotin has been reported to cause a negative bias, interpret results relative to patient's use of biotin. Lab Interpretation Abnormal (test code = 89259-1) [facility] ClubACTIVATED PARTIAL THRMPLAS [id number] 05:35:21 Test Item Value Reference Range Interpretation [...] seconds. Lab Interpretation Normal (test code = 51825-0) [facility] ClubACTIV[facility] PART[facility] THRMPLAS [id number] 05:35:21 Test Item Value Reference Range Interpretation [...] seconds. Lab Interpretation Normal (test code = 31303-8) [facility] ClubPROTHROMBIN TIME / [id number] 05:33:21 Test Item Value Reference Range Interpretation [...] tions. Lab Interpretation (test Normal code = 50692-0) [facility] ClubCOMP. METABOLIC PANEL (88202)2022-02-11 05:33:21 Test Item Value Reference Range Interpretation Comments NA (test code = 137 mmol/L 135-145 8930927858) K (test code = 4.3 mmol/L 3.5-5 3570094506) CL (test code = 103 mmol/L 98-108 4273006691) CO2 TOTAL (test code = 25 mmol/L 23-31 8475693101) AGAP (test code = 2-16 3126108084) BUN (test code = 19 mg/dL 7-23 5461229722) GLUCOSE (test code = 120 mg/dL 70-110 H 5914232648) CREATININE (test code = 1.15 mg/dL 0.5-1.04 H 1412720872) TOTAL BILI (test code = 0.9 mg/dL 0.1-1.3 3736883356) CALCIUM (test code = 8.9 mg/dL 8.6-10.6 5925560559) T PROTEIN (test code = 6.6 g/dL 6.3-8.2 6044064791) ALBUMIN (test code = 4.0 g/dL 3.5-5 5536800025) ALK PHOS (test code = 73 U/L 34-122 0516982252) ALTv (test code = 18 U/L 5-35 1742-6) AST(SGOT) (test code = 31 U/L 13-40 3390562418) eGFR (test code = mL/min/1.73m2 0493514606) KYLE (test code = KYLE) Association of [...] tests). Lab Interpretation Abnormal (test code = 26748-5) [facility] ClubCOMP. METABOLIC PANEL (37534)2022-02-11 05:33:21 Test Item Value Reference Range Interpretation Comments NA (test code = 137 mmol/L 135-145 8094304271) K (test code = 4.3 mmol/L 3.5-5.0 3777287198) CL (test code = 103 mmol/L 98-108 8834350962) CO2 TOTAL (test code = 25 mmol/L 23-31 6267880493) AGAP (test code = 2-16 7433655288) BUN (test code = 19 mg/dL 7-23 4206713003) GLUCOSE (test code = 120 mg/dL 70-110 H 0670871125) CREATININE (test code = 1.15 mg/dL 0.50-1.04 H 3113155854) TOTAL BILI (test code = 0.9 mg/dL 0.1-1.0 2835175376) CALCIUM (test code = 8.9 mg/dL 8.6-10.6 4997135728) T PROTEIN (test code = 6.6 g/dL 6.3-8.2 2705546636) ALBUMIN (test code = 4.0 g/dL 3.5-5.0 2021101329) ALK PHOS (test code = 73 U/L 34-122 9534702719) ALTv (test code = 18 U/L 5-35 1742-6) AST(SGOT) (test code = 31 U/L 13-40 7565959941) eGFR (test code = mL/min/1.73m2 7954812392) KYLE (test code = KYLE) Association of [...] tests). Lab Interpretation Abnormal (test code = 61367-2) [facility] ClubPROTHROMBIN TIME / [id number] 05:33:21 Test Item Value Reference Range Interpretation Comments PROTIME PATIENT (test See_Comment [Auto mated message] code = 5964-2) The system Voxie ich generated this result transmitted ref erence range: 12.0 - 1 4.7 Seconds. The re ference range was not u sed to interpret this result as normal/abnor mal. INR (test code = 6301-6) Nor mal INR <1.1; Warfarin Therap eutic range 2.0 to 3. 0 or 2.5 to 3.5, dep ending upon the indica tions. Lab Interpretation (test Normal code = 25365-8) [facility] ClubCB WITH [id number] 05:14:37 Test Item Value Reference Range Interpretation Comments WBC (test code = See_Comment [Automated 4490-2) message] The sy stem which generated this result transmitted reference range : 4.30 - 11.10 10*3/?L. The reference range was not used to interpret this result as normal/abnormal . RBC (test code = See_Comment L [Automated 809-8) message] The sy stem which generated this [...] RDW-SD (test code = 47.9 fL 39-49.9 30117-6) RDW-CV (test code = 14.9 % 12-15.5 788-0) PLT (test code = See_Comment L [Automated 777-3) message] The sy stem which generated this result transmitted reference range : 166 - 358 10*3/ ?L. The reference r abbey was not used to interpret this result as normal/abnormal . MPV (test code = 9.1 fL 9.5-12.9 L 34420-5) NRBC/100 WBC (test See_Comment [Automat ed code = 6964939607) message] The system which generated this result transmitted reference range : 0.0 - 10.0 /100 WBCs. The refer ence range was not u sed to interpret th is result as normal/abnormal . NRBC x10^3 (test code See_Comment [Auto mated = 7890382416) message] The s ystem which generated this result transmitted reference range : 10*3/?L. The reference range was not used to interpret this result as normal/abnormal . GRAN MAT (NEUT) % 78.5 % (test code = 770-8) IMM GRAN % (test code 0.20 % = 3980658005) LYMPH % (test code = 11.6 % 736-9) MONO % (test code = 8.4 % 5905-5) EOS % (test code = 1.1 % 713-8) BASO % (test code = 0.2 % 706-2) GRAN MAT x10^3(ANC) 3.45 10*3/uL 1.88-7.09 (test code = 9832056927) IMM GRAN x10^3 (test 0-0.06 code = 4128959670) LYMPH x10^3 (test code 0.51 10*3/uL 1.32-3.29 L = 731-0) MONO x10^3 (test code 0.37 10*3/uL 0.33-0.92 = 742-7) EOS x10^3 (test code = 0.05 10*3/uL 0.03-0.39 711-2) BASO x10^3 (test code 0.01-0.07 = 704-7) Lab Interpretation Abnormal (test code = 71053-0) [facility] Coronavirus 2019 Twnramk9470-09-06 18:08:00 Test Item Value Reference Range Interpretation [...] det ection of nucleic acids f rom pbuDQYN-KkI-5 v irus and diagnosis of SA RS-CoV-2 virusinfection. It is an Emergency Use Authorization ( EUA) testauthorized by the U.S. FDA. BASIC METABOLIC [id number] 09:37:00 Test Item Value Reference Range Interpretation [...] = 9.0 mg/dL 8.0-10.5 N CA) PROTHROMBIN CBUC4965-31-13 09:32:00 Test Item Value Reference Range Interpretation [...] (to prevent recurrent infar ct). 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 : 1955 Age/S: 66/F [address] [place] [address] Bl Unit #: [id number] Loc: ADDIS Momin [place] [address] Phys: Bahman ChopraP Acct: [id number] Dis Date: Status: ADM IN PHONE #: [phone] Exam Date: 06/17/2021 1320 FAX #: [phone] Reason: WATCHMAN EXAMS: CPT CODE: [id number] XR CHEST 1 V 18711 PROCEDURE INFORMATION: Exam: XR Chest Exam date [...] Chopra Technologist: RT Taylor(R) Trnscrd Date/Time/By: 06/17/2021 (5410) : By: Susanna Orig Print D/T: S: 06/17/2021 (4867) PAGE 1 Signed ReportCOVID 19 Asymptomatic IH [...] high or waivedcomplexit y tests. BASIC METABOLIC [id number] 11:37:00 Test Item Value Reference Range Interpretation [...] code = 9.0 mg/dL 8.0-10.5 N CA) BDNMMABACZ2480-77-02 11:37:00 Test Item Value Reference Range Interpretation Comments PREALBUMIN (test code = PREALB) 24.3 mg/dL 16.0-40.0 N PROTHROMBIN MDBC2202-31-86 11:03:00 Test Item Value Reference Range Interpretation [...] (to prevent recurrent infar ct). CBC W/AUTO GBBX1603-23-67 10:59:00 Test Item Value Reference Range Interpretation [...] 3/uL 0.0-0.1 N NRBC#) - CHEST 2 [id number] 00:00:00 [facility] : 1955 Sex: F FAX: Carmenza Kelly DO [phone] [place]: St: PRE FAX: Mike Scales MD [phone] Name: LIO WATTS [facility] [place] : 1955 Age/S: 66/F [address] [place] [address] Unit #: [id number] Loc: [place], [place] [address]Xjap: Mike Lund MD Acct: [id number] Dis Date: Status: PRE SDC PHONE #: [phone] Exam Date: 06/16/2021 1120 FAX #: [phone] Reason: PREOP EXAMS: CPT CODE: [id number] XR CHEST 2 V 83655 PROCEDURE INFORMATION: Exam: XR Chest Exam date [...] Technologist: Danielle Nix RT(R) Trnscrd Date/Time/By: 06/16/2021 (1137) : By: [email or web address] Orig Print D/T: S: 06/16/2021 (1590) PAGE 1 Signed ReportGastrointestinal iitob9732-23-08 04:35:05 Test Item Value Reference Interpretation Comments [...] Rotavirus PCR (test Not Detected code = 4655564) Salmonella PCR (test Not Detected code = [...] PCR Not Detected (test code = 7124) [facility] cupwpak2453-47-22 19:30:47 Test Item Value Reference Range Interpretation Comments Case number (test [id number] code = 6745412) Surgical pathology See link below for PDF report (test code = Lab Report 2255) Result status (test This is Supplemental code = 4551650) Report for [id number] [facility]2021-04-09 16:31:00 Test Item Value Reference Range Interpretation Comments POC Activated Clotting Time (test code 153 s = POC Activated Clotting Time) [facility]FfqvbqdHIOBGVDPIS0978-58-86 16:31:00 Test Item Value Reference Range Interpretation Comments POC Activated Clotting Time (test code 153 s = POC Activated Clotting Time) [facility] HospitalIcphqihKIDBJLWVDU9389-72-60 16:31:00 Test Item Value Reference Range Interpretation Comments POC Activated Clotting Time (test code 153 s = POC Activated Clotting Time) [facility] HospitalEfgmznrZVNKQKRQFS7405-34-87 16:31:00 Test Item Value Reference Range Interpretation Comments POC Activated Clotting Time (test code 153 s = POC Activated Clotting Time) [facility] HospitalJnnxafwEXUBBBXHRH9711-40-69 16:31:00 Test Item Value Reference Range Interpretation Comments POC Activated Clotting Time (test code 153 s = POC Activated Clotting Time) [facility] HospitalEgmggclKYIPWQYMIZ7300-73-20 16:31:00 Test Item Value Reference Range Interpretation Comments POC Activated Clotting Time (test code 153 s = POC Activated Clotting Time) [facility] HospitalMcubohyZCWDOTUKQU2442-71-40 16:31:00 Test Item Value Reference Range Interpretation Comments POC Activated Clotting Time (test code 153 s = POC Activated Clotting Time) [facility] HospitalUoflzhiHFPILAZEJR4559-88-88 14:37:00 Test Item Value Reference Range Interpretation Comments POC Activated Clotting Time (test code 454 s = POC Activated Clotting Time) [facility] HospitalZwulfluMPKVRULKGO7698-20-49 14:37:00 Test Item Value Reference Range Interpretation Comments POC Activated Clotting Time (test code 454 s = POC Activated Clotting Time) [facility] HospitalUqqoepdDZQTFFJLLZ9131-26-03 14:37:00 Test Item Value Reference Range Interpretation Comments POC Activated Clotting Time (test code 454 s = POC Activated Clotting Time) [facility] HospitalXflvpeyCELFVCUTIE1104-41-77 14:37:00 Test Item Value Reference Range Interpretation Comments POC Activated Clotting Time (test code 454 s = POC Activated Clotting Time) [facility] HospitalJizajbcKPMTNHUOGV2630-53-61 14:37:00 Test Item Value Reference Range Interpretation Comments POC Activated Clotting Time (test code 454 s = POC Activated Clotting Time) [facility] HospitalXyhknvtRGEAAGNXNE0592-43-61 14:37:00 Test Item Value Reference Range Interpretation Comments POC Activated Clotting Time (test code 454 s = POC Activated Clotting Time) [facility] HospitalSewrxfrMRAEHGDLUG0881-69-06 14:37:00 Test Item Value Reference Range Interpretation Comments POC Activated Clotting Time (test code 454 s = POC Activated Clotting Time) [facility] HospitalKossekdVLKCNSVVGK4224-87-97 14:13:00 Test Item Value Reference Range Interpretation Comments POC Activated Clotting Time (test code 354 s = POC Activated Clotting Time) [facility] HospitalLeneurrIOEJBRSMHI9538-08-35 14:13:00 Test Item Value Reference Range Interpretation Comments POC Activated Clotting Time (test code 354 s = POC Activated Clotting Time) [facility] HospitalMcbgvhoCINNEKTFUN0538-52-33 14:13:00 Test Item Value Reference Range Interpretation Comments POC Activated Clotting Time (test code 354 s = POC Activated Clotting Time) [facility] HospitalUebpbbpFLEYCSDCHI4985-84-73 14:13:00 Test Item Value Reference Range Interpretation Comments POC Activated Clotting Time (test code 354 s = POC Activated Clotting Time) [facility] HospitalPafeidxMPPSPSQSGX0199-81-08 14:13:00 Test Item Value Reference Range Interpretation Comments POC Activated Clotting Time (test code 354 s = POC Activated Clotting Time) [facility]bibjabMPTPAIQCAT8251-55-55 14:13:00 Test Item Value Reference Range Interpretation Comments POC Activated Clotting Time (test code 354 s = POC Activated Clotting Time) [facility] CenterVrnssdgGKXYWNYWDN3216-37-73 14:13:00 Test Item Value Reference Range Interpretation Comments POC Activated Clotting Time (test code 354 s = POC Activated Clotting Time) [facility] HHYWNGF8267-61-99 10:37:00Negative (08/29/20 5:37 AM) [facility] HermannCHEM XYBWB1409-00-96 10:37:68280Bhrewlhq HermannCHEM PANEL 2020-08-29 10:37:0028[facility] HermannCHEM QYVVR3710-44-65 10:37:001.01[facility] HermannCHEM WDTDS6144-90-46 10:37:34979Pafztmik HermannCHEM NCXWH2578-08-37 10:37:003.8[facility] HermannCHEM KCWFM1602-26-83 10:37:43754Wpmaivch HermannCHEM ZOBMK4439-82-02 10:37:0028[facility] HermannCHEM FTYUZ1317-97-50 10:37:009.8 [facility] HermannCHEM LUZRN9117-87-75 10:37:0011.8[facility] HermannCHEM PANEL 2020-08-29 10:37:0059[facility] HermannCHEM HWIAQ9411-62-41 10:37:002.9[facility] KsrfzxnEIRZJPEYHE4184-98-93 10:37:006.8[facility] UntgcafHDQTGFRRHU8493-03-14 10:37:004.47[facility] ZeftcxzPCCWABIGEL7594-53-23 10:37:0010.6[facility] IHWPZYTQHG4536-60-29 10:37:0034.0[facility] YqktqhjWIYWEAWDKA8728-18-75 10:37:00 76.1[facility] SywaaadQMFMFEUWQB5544-24-60 10:37:00 Test Item Value Reference Range Interpretation Comments MCH (test code = MCH) 23.8 pg 27.0-31.0 [facility] JvqwwwtNSGWTGNAFM8057-40-26 10:37:0031.3[facility] HermannHEMATOLOGY 2020-08-29 10:37:0018.2[facility] PgxzgpwYTMYCQQPTG6168-21-80 10:37:28761Vmmialmw FplveevKACHXWUFIO3891-35-83 10:37:007.5[facility] ZpzmtjlBJYBGWEMWK5494-31-94 10:37:00 Test Item Value Reference Range Interpretation Comments PT (test code = PT) 12.8 s 12.0-14.7 [facility] MdrrtxxSOLFDSWUPX7515-46-15 10:37:00 Test Item Value Reference Range Interpretation Comments INR (test code = INR) 0.97 1 0.85-1.17 [facility] GqtyjkxWJVKVKOIVU4812-70-37 10:37:00 Test Item Value Reference Range Interpretation Comments PTT (test code = PTT) 25.0 s 22.9-35.8 [facility] AzyszlaWEHZOZJTIZ2916-45-92 10:37:0070.5[facility] HermannHEMATOLOGY 2020-08-29 10:37:0018.8[facility] PeohniiTLRUTHBXWU7500-47-59 10:37:009.5[facility] SvcrinxVFMHBFTYWB1917-80-14 10:37:000.9[facility] NyyxgfrZXPUJEZGAC9493-81-08 10:37:000.3[facility] UockhamCVCAZLTDEF0639-46-69 10:37:004.8[facility] [place] RIDYCDBBRU6565-18-85 10:37:001.3[facility] RwsfngkIRLFBPMZRR4330-32-93 10:37:000.6 [facility] RazguvdZQJYAFLLUZ7050-67-25 10:37:000.1[facility] HermannHEMATOLOGY 2020-08-29 10:37:001+ *ABN*(08/29/20 5:37 AM)[facility] CakcdybTWGJFQUGDZ5232-40-17 10:37:00Not Detected (08/29/20 5:37 AM)[facility] HermannBLOOD BANK RESULTS 2020-08-29 10:37:00Negative (08/29/20 5:37 AM)[facility] HermannCHEM VKFWJ2717-78-28 10:37:01718Dotelofd HermannCHEM GHMVN8711-73-30 10:37:0028[facility] HermannCHEM HSMHP0714-64-00 10:37:001.01[facility] HermannCHEM UROVI7348-92-57 10:37:18860 [facility] HermannCHEM EBQVV8475-23-67 10:37:003.8[facility] HermannCHEM PANEL 2020-08-29 10:37:99408Docoiece HermannCHEM QURUU9637-51-42 10:37:0028[facility] HermannCHEM IRPDB6562-41-62 10:37:009.8[facility] HermannCHEM KVGZI4406-84-66 10:37:0011.8[facility] HermannCHEM LPEWC4075-30-95 10:37:0059[facility] HermannCHEM QYOMZ2445-93-58 10:37:002.9[facility] MzvffmhTUURNPZFPH0662-01-41 10:37:006.8 [facility] MdwzrimXOINHTXTVN6947-67-06 10:37:004.47[facility] HermannHEMATOLOGY 2020-08-29 10:37:0010.6[facility] CtncfemNJAXILTIKQ7662-15-24 10:37:0034.0[facility] GsiiqzhJCIRLWXVQP6220-04-77 10:37:0076.1[facility] DkgiolyFPXEWODDBE8953-27-48 10:37:00 Test Item Value Reference Range Interpretation Comments MCH (test code = MCH) 23.8 pg 27.0-31.0 [facility] SmiihhrTBTTBVTEDP2068-70-27 10:37:0031.3[facility] HermannHEMATOLOGY 2020-08-29 10:37:0018.2[facility] IiiroxeIVDRUAEEOT1372-41-73 10:37:14850Vyybzavr VydulqzMIRNHVEIYI2333-87-18 10:37:007.5[facility] EwuvsjcHOIZNIAAJB6229-64-88 10:37:00 Test Item Value Reference Range Interpretation Comments PT (test code = PT) 12.8 s 12.0-14.7 [facility] VozquizHCJQFZCQFL9483-14-60 10:37:00 Test Item Value Reference Range Interpretation Comments INR (test code = INR) 0.97 1 0.85-1.17 [facility] FkxfyjnDKNKDTKBXW3727-29-88 10:37:00 Test Item Value Reference Range Interpretation Comments PTT (test code = PTT) 25.0 s 22.9-35.8 [facility] PelxohgIKQALZDGDY5564-41-46 10:37:0070.5[facility] HermannHEMATOLOGY 2020-08-29 10:37:0018.8[facility] ZxpcwpkHVBCSDSGEL0639-88-32 10:37:009.5[facility] EpxjvlgOTAOSGJPTR9693-16-19 10:37:000.9[facility] TsmirhiYTWIQUTDRM7769-79-59 10:37:000.3[facility] XdzzhyhTKSABMOJVH3191-70-72 10:37:004.8[facility] [place] ONBFQFFZYQ4205-07-87 10:37:001.3[facility] JjuzvwpGTQSAEXZTP1772-85-35 10:37:000.6 [facility] XtabeduTTSVNFEGGF6839-38-06 10:37:000.1[facility] HermannHEMATOLOGY 2020-08-29 10:37:001+ *ABN*(08/29/20 5:37 AM)[facility] IyqvlegJYOWAYPNNX1579-24-11 10:37:00Not Detected (08/29/20 5:37 AM)[facility] HermannBLOOD BANK RESULTS 2020-08-29 10:37:00Negative (08/29/20 5:37 AM)[facility] HermannCHEM GYIAQ0142-90-61 10:37:19340Rrecsoyk HermannCHEM DSSUN1207-59-58 10:37:0028[facility] HermannCHEM TDLLM2190-90-93 10:37:001.01[facility] HermannCHEM VHBJF3507-56-18 10:37:43813 [facility] HermannCHEM UNGSJ5750-74-66 10:37:003.8[facility] HermannCHEM PANEL 2020-08-29 10:37:53443Tpfngklc HermannCHEM GINBP5107-59-88 10:37:0028[facility] HermannCHEM KPDZV4704-22-70 10:37:009.8[facility] HermannCHEM DFBQJ0753-68-42 10:37:0011.8[facility] HermannCHEM RHXXF5633-04-58 10:37:0059[facility] HermannCHEM UNABJ3310-96-72 10:37:002.9[facility] QnhonifCNSXIRRMQQ2542-19-99 10:37:006.8 [facility] BxmumwqMBHMSHGNSZ7253-67-82 10:37:004.47[facility] HermannHEMATOLOGY 2020-08-29 10:37:0010.6[facility] PjrokkjLBXYAFJKAK2949-37-69 10:37:0034.0[facility] YvrdfnyEQQHBOWXGW2083-52-11 10:37:0076.1[facility] LouejeoGCLFOBSRER6766-50-10 10:37:00 Test Item Value Reference Range Interpretation Comments MCH (test code = MCH) 23.8 pg 27.0-31.0 [facility] WpgjbcrDYOBOIZWCZ7579-66-46 10:37:0031.3[facility] HermannHEMATOLOGY 2020-08-29 10:37:0018.2[facility] PbnqwdhCYMEBHUCWM4748-99-74 10:37:62346Xjixdvoi AfyayjhLAXBWUIRJW8486-08-15 10:37:007.5[facility] YpsiemdQOUBNFYBOR1082-26-01 10:37:00 Test Item Value Reference Range Interpretation Comments PT (test code = PT) 12.8 s 12.0-14.7 [facility] EvmbbchFDXQJSPTOR1647-03-46 10:37:00 Test Item Value Reference Range Interpretation Comments INR (test code = INR) 0.97 1 0.85-1.17 [facility] JxzfucvUAZSUJCACU1040-92-58 10:37:00 Test Item Value Reference Range Interpretation Comments PTT (test code = PTT) 25.0 s 22.9-35.8 [facility] WeyjohpLIFCOEGOQF3913-03-98 10:37:0070.5[facility]annHEMATOLOGY 2020-08-29 10:37:0018.8[facility] GczyeluPZIVXJUGXZ4805-48-14 10:37:009.5[facility] JehczbtXYZEANUJFG1555-38-53 10:37:000.9[facility] TodgimuUWUIJVZKTY6170-34-03 10:37:000.3[facility] ZzztzobFUXKTDJENV3710-62-11 10:37:004.8[facility] KIDUGWFAFO3350-07-51 10:37:001.3[facility] TkyeqqiFJSAYKNTTZ6067-65-01 10:37:000.6 [facility] EqnbuhqLRUQCFENKN7343-44-92 10:37:000.1[facility]annHEMATOLOGY 2020-08-29 10:37:001+ *ABN*(08/29/20 5:37 AM)[facility] PqqalhmNJIRKCBUNE9148-06-63 10:37:00Not Detected (08/29/20 5:37 AM)[facility] RES[facility] 2020-08-29 10:37:00Negative (08/29/20 5:37 AM)[facility]annCHEM NVLFM4873-02-69 10:37:33044Twlietfr HermannCHEM SMFFY6070-04-53 10:37:0028[facility]annCHEM OJSAS3252-76-74 10:37:001.01[facility]annCHEM XQKDM7159-28-46 10:37:83457 [facility]annCHE[facility] ZSGFP3374-02-57 10:37:003.8[facility]annCHEM PANEL 2020-08-29 10:37:51648Pggslvia HermannCHEM UEJCO2591-69-51 10:37:0028[facility]annCHEM BBJAP4784-97-27 10:37:009.8[facility]annCHEM DSOFT6933-31-15 10:37:0011.8[facility]annCHEM TMAFK6860-77-80 10:37:0059[facility]annCHEM WJPHM4701-85-55 10:37:002.9[facility] XkjqpqlYZZCADKPQI4409-71-56 10:37:006.8 [facility] OnvkefpUVBQSNZJZC7381-78-58 10:37:004.47[facility] 2020-[facility]29 10:37:0010.6[facility] HcdepcqGWBLMGLZDZ3389-24-29 10:37:0034.0[facility] HcwlybyUZBPBXTQLD4030-18-79 10:37:0076.1[facility] NdtzpgxHSEPUAODWV1662-42-84 10:37:00 Test Item Value Reference Range Interpretation Comments MCH (test code = MCH) 23.8 pg 27.0-31.0 [facility] XecfbnyIXURHEDXKI3372-79-14 10:37:0031.3[facility]annHEMATOLOGY 2020-08-29 10:37:0018.2[facility] ViqqxvzJUGMEHCZGT6079-36-50 10:37:22403Sxlcslme GufcnuvJEMNKMWWHA3703-87-75 10:37:007.5[facility] NjrcxlbMSKEAIJQWL6763-98-67 10:37:00 Test Item Value Reference Range Interpretation Comments PT (test code = PT) 12.8 s 12.0-14.7 [facility] QgejnxnYJPINHCVBW4501-76-27 10:37:00 Test Item Value Reference Range Interpretation Comments INR (test code = INR) 0.97 1 0.85-1.17 [facility] KzjcsqxANFUQCNBGS6852-41-21 10:37:00 Test Item Value Reference Range Interpretation Comments PTT (test code = PTT) 25.0 s 22.9-35.8 [facility] TgkvjhkSNSFBAJFGI2750-39-02 10:37:0070.5[facility]annHEMATOLOGY 2020-08-29 10:37:0018.8[facility] SuunwuaCNUDAFSGNE6189-36-92 10:37:009.5[facility] XztycadIPZKCYMGWK9634-06-43 10:37:000.9[facility] JzmjpmiZOVQVDLGIY7326-08-47 10:37:000.3[facility] QuukrcoACCKUARNDJ2068-28-08 10:37:004.8[facility] CWSWWLUHMM1887-51-64 10:37:001.3[facility] GtszjogAUWQRDZDYV8046-71-66 10:37:000.6 [facility] FpsmjmkRAHIRPKQCP9930-76-69 10:37:000.1[facility]annHEMATOLOGY 2020-08-29 10:37:001+ *ABN*(08/29/20 5:37 AM)[facility] DrbwqekCVUCSJMHDO5699-24-31 10:37:00Not Detected (08/29/20 5:37 AM)[facility] 2020-08-29 10:37:00Negative (08/29/20 5:37 AM)[facility]annCHEM NFNVX4761-84-64 10:37:27616Vbknmzxg HermannCHEM MYLZM1294-59-90 10:37:0028[facility]annCHEM TRJON7519-58-95 10:37:001.01[facility]annCHEM HUDNC3515-99-88 10:37:06971 [facility]annCHE[facility] IDOIR5395-53-95 10:37:003.8[facility]annCHEM PANEL 2020-08-29 10:37:10024Fcglqugt HermannCHEM NJYSW1526-15-12 10:37:0028[facility]annCHEM PXJSG1921-04-31 10:37:009.8[facility]annCHEM JRZZJ8851-75-15 10:37:0011.8[facility]annCHEM WWTRG0034-52-15 10:37:0059[facility]annCHEM ZRFYK0237-28-89 10:37:002.9[facility] DcnunsmIEBSBOEHTQ6455-20-37 10:37:006.8 [facility] UcvjjryHISOOGGIXQ7362-27-15 10:37:004.47[facility]annHEMATOLOGY 2020-08-29 10:37:0010.6[facility] SxfxrdrRGRIRBWWAL3428-72-39 10:37:0034.0[facility] NvcpmxiPCHZSSVODJ8120-82-96 10:37:0076.1[facility] McaklhgTZEUZBHJSE6640-93-05 10:37:00 Test Item Value Reference Range Interpretation Comments MCH (test code = MCH) 23.8 pg 27.0-31.0 [facility] HmmhcfgOXGYEBFRBS3185-93-86 10:37:0031.3[facility]annHEMATOLOGY 2020-08-29 10:37:0018.2[facility] TbyttqyPOTTXWGFOQ6654-87-75 10:37:00283Vfhacyhx TsshmdeYSHJILXMEN4604-76-07 10:37:007.5[facility] UutpvfuNOZYVHWEAO7336-42-22 10:37:00 Test Item Value Reference Range Interpretation Comments PT (test code = PT) 12.8 s 12.0-14.7 [facility] BbnnidoUKRBLUIMUJ6192-61-48 10:37:00 Test Item Value Reference Range Interpretation Comments INR (test code = INR) 0.97 1 0.85-1.17 [facility] NfcktkzJWJVPCHKWZ8155-87-00 10:37:00 Test Item Value Reference Range Interpretation Comments PTT (test code = PTT) 25.0 s 22.9-35.8 [facility] HrgopioIBXOJZQBRT9589-04-90 10:37:0070.5[facility]annHEMATOLOGY 2020-08-29 10:37:0018.8[facility] CiqanxsTLRFZCYSLA9308-02-65 10:37:009.5[facility] AaowrnfLCTQJTOUCI9954-70-89 10:37:000.9[facility] ErkswxiFUWOTBPXDM6563-66-76 10:37:000.3[facility] NqgcrckWRLYCXRHCM5814-05-24 10:37:004.8[facility] ZPTDUSYYDJ4868-52-35 10:37:001.3[facility] HwadgmnVUIOSVUSCF4698-58-59 10:37:000.6 [facility] SyxcfgfBJLLAFICIS7912-72-80 10:37:000.1[facility]annHEMATOLOGY 2020-08-29 10:37:001+ *ABN*(08/29/20 5:37 AM)[facility] StitcmpEBEIGYRHRX2427-30-80 10:37:00Not Detected (08/29/20 5:37 AM)[facility]annBLO[facility] BANK RESULTS 2020-08-29 10:37:00Negative (08/29/20 5:37 AM)[facility]annCHEM NJIFI4052-26-66 10:37:30498Jnxtxbms HermannCHEM IYIDY8258-37-48 10:37:0028[facility]annCHEM DOGXE5687-60-53 10:37:001.01[facility]annCHEM ROWFQ7586-48-93 10:37:67080 [facility]annCHE[facility] JYYFE4267-91-99 10:37:003.8[facility]annCHEM PANEL 2020-08-29 10:37:14541Wptwuzrk HermannCHEM ISKOY3919-84-28 10:37:0028[facility]annCHEM GGAIZ2280-32-36 10:37:009.8[facility]annCHEM XVQPX5717-77-03 10:37:0011.8[facility] HermannCHEM AGUDQ5098-40-01 10:37:0059[facility]annCHEM BZTJX1993-70-40 10:37:002.9[facility] OpmnwhjMZYVIMLURY1422-74-44 10:37:006.8 [facility] ZktzwciQMWXRIQDEQ7015-93-78 10:37:004.47[facility]annHEMATOLOGY 2020-08-29 10:37:0010.6[facility] MjmlaeyHHBNGAVWZS9287-06-74 10:37:0034.0[facility] UzijvdjGYISLTWVTT0015-05-48 10:37:0076.1[facility] VjoqqrrMGGTKISHDV6133-53-38 10:37:00 Test Item Value Reference Range Interpretation Comments MCH (test code = MCH) 23.8 pg 27.0-31.0 [facility] CghpzxiYWWQTVMTWL3766-28-94 10:37:0031.3[facility]annHEMATOLOGY 2020-08-29 10:37:0018.2[facility] NmujkbiWOWFEZBFCK0092-11-27 10:37:84779Pfqqzisa KndbnifPRPCQNJHOH6117-47-61 10:37:007.5[facility] LluksiuSCUFBIXUGS2505-79-01 10:37:00 Test Item Value Reference Range Interpretation Comments PT (test code = PT) 12.8 s 12.0-14.7 [facility] AgqcezhBMVQANNWAR9140-08-00 10:37:00 Test Item Value Reference Range Interpretation Comments INR (test code = INR) 0.97 1 0.85-1.17 [facility] OcbcecvQZBQUZVYLL0103-25-49 10:37:00 Test Item Value Reference Range Interpretation Comments PTT (test code = PTT) 25.0 s 22.9-35.8 [facility] RaygjnmXSXTMAPDSF4130-31-26 10:37:0070.5[facility]annHEMATOLOGY 2020-08-29 10:37:0018.8[facility] NsmbpfvUSAMQNLDLC6445-06-49 10:37:009.5[facility] OzjrhnxTULATBYZEW1996-16-93 10:37:000.9[facility] CyboqnqLLMKVBFIVY9079-57-97 10:37:000.3[facility] MxnticxJWMZGHPWWF8531-63-54 10:37:004.8[facility] RJLYLIYCBP0238-96-04 10:37:001.3[facility] PqhshedLMDIBPREGV4542-90-95 10:37:000.6 [facility] VvseznyLBOTBZASMP3847-28-42 10:37:000.1[facility]annHEMATOLOGY 2020-08-29 10:37:001+ *ABN*(08/29/20 5:37 AM)[facility] BhbmskeTFDHHZAPKJ0051-57-80 10:37:00Not Detected (08/29/20 5:37 AM)[facility]annBLOOD BANK RESULTS 2020-08-29 10:37:00Negative (08/29/20 5:37 AM)[facility] HermannCHEM UTMEE6251-99-14 10:37:68855Vzgkxoka HermannCHEM OCORN8421-56-41 10:37:0028[facility]annCHEM JTRKH6681-19-50 10:37:001.01[facility]annCHEM AMFRB6549-82-75 10:37:75774 [facility]annCHEM HLZQZ2157-67-35 10:37:003.8[facility] HermannCHEM PANEL 2020-08-29 10:37:96840Rdwzmhil HermannCHEM EWMFH8524-43-07 10:37:0028[facility] HermannCHEM CLCOJ8407-14-06 10:37:009.8[facility] HermannCHEM HHEAJ8390-22-58 10:37:0011.8[facility] HermannCHEM NKBPP4056-35-74 10:37:0059[facility]annCHEM KZLTY0234-48-89 10:37:002.9[facility] JwenopgDHKPKRTYXQ9305-39-99 10:37:006.8 [facility] InacuxxRKMGAGRMYD5598-73-59 10:37:004.47[facility]annHEMATOLOGY 2020-08-29 10:37:0010.6[facility] OdzanvnSHOXPBJGTD1005-53-84 10:37:0034.0[facility] CkpcvnfCPFWZAGYCU5493-27-12 10:37:0076.1[facility] SxnsrlxWYJILYPRKM6878-91-63 10:37:00 Test Item Value Reference Range Interpretation Comments MCH (test code = MCH) 23.8 pg 27.0-31.0 [facility] MgcevmwLZDHHVECIN4998-09-34 10:37:0031.3[facility]annHEMATOLOGY 2020-08-29 10:37:0018.2[facility] JrtkawlMQBMDXOSET5053-91-69 10:37:16775Vezyywim ToyrxlsRWQPWTYZPT4654-95-79 10:37:007.5[facility] JfudtdkCJQEZNWYNN5314-02-77 10:37:00 Test Item Value Reference Range Interpretation Comments PT (test code = PT) 12.8 s 12.0-14.7 [facility] KhydapgWLIZVTGTAF9542-14-94 10:37:00 Test Item Value Reference Range Interpretation Comments INR (test code = INR) 0.97 1 0.85-1.17 [facility] ZsaetpjPMMDCZBFBT8314-78-86 10:37:00 Test Item Value Reference Range Interpretation Comments PTT (test code = PTT) 25.0 s 22.9-35.8 [facility] XcthksfPQNRWBHGSN7451-13-16 10:37:0070.5[facility]annHEMATOLOGY 2020-08-29 10:37:0018.8[facility] FobzavtKNVMEVJLWL5470-26-02 10:37:009.5[facility] XgcbhyrMFRENEIVWG6492-78-52 10:37:000.9[facility] HektvigFZEETNMPCG7753-90-11 10:37:000.3[facility] OizbeqfBDCEIRHBWR4399-41-81 10:37:004.8[facility] JPYJXDIVCA9734-02-16 10:37:001.3[facility] UnujxyyHWEUJRGJBN2894-48-07 10:37:000.6 [facility] LgqrjpoBVJTWHLLQG9387-89-58 10:37:000.1[facility]annHEMATOLOGY 2020-08-29 10:37:001+ *ABN*(08/29/20 5:37 AM)[facility] WevhlnrUEEDSORQHR2836-22-05 10:37:00Not Detected (08/29/20 5:37 AM)[facility] HermannCHLAMYDIA, GC, TV,PCR, IN GELCW9490-05-73 15:38:00 Test Item Value Reference Range Interpretation Comments FT (test code = CHTR) Not detected (qualifier Not Detected N value) FT (test code = Not detected (qualifier Not Detected N NGONO) value) FT (test code = TRVG) Not detected (qualifier Not Detected N value) [facility] PFXMFDMIOCM4312-15-22 10:57:00 Test Item Value Reference Range Interpretation Comments Color (test code = UCOLR) Dk. Yellow Clarity (test code = UCLAR) Hazy Glucose (test code = UGLUC) NEGATIVE NEGATIVE N Bilirubin (test code = UBILI) NEGATIVE NEGATIVE N Ketones (test code = UKET) NEGATIVE NEGATIVE N Specific [place] (test code = 1.025 1.005-1.030 A USPGR) [...] = None Seen None Seen N URCRYS) [facility]"
--- NOTE | 2022-08-06 16:42 | ER ---
Nurse's Notes [facility] Name: Marjan Kolb Age: 67 yrs Sex: Female : 1955 Arrival Date: 08/06/2022 Time: 15:53 Bed 12 Private MD: Diagnosis: Pain in left hip Presentation: 08/06 15:58 Chief complaint: Seen in Ed 2 days ago for left sided chest wall pain after mechanical hb fall from standing, reports pain is not getting better. Coronavirus screen: At this time, the client does not indicate any symptoms associated with coronavirus-19. Ebola Screen: No symptoms or risks identified at this time. Initial Sepsis Screen: Does the patient meet any 2 criteria? No. Patient's initial sepsis screen is negative. Does the patient have a suspected source of infection? No. Patient's initial sepsis screen is negative. Risk Assessment: Do you want to hurt yourself or someone else? Patient reports no desire to harm self or others. Onset of symptoms was August 04, 2022. 15:58 Method Of Arrival: EMS: [facility] hb 15:58 Acuity: BLAYNE 4 hb Historical: - Allergies: 16:00 Azithromycin; hb 16:00 Bactrim; hb 16:00 butorphanol; hb 16:00 Fentanyl; hb 16:00 Reglan; hb 16:00 Sulfa (Sulfonamide Antibiotics); hb 16:00 TRIMETHOPRIM; hb - PMHx: 16:00 Anxiety; Atrial fibrillation; Bipolar disorder; esophageal varicies; Hepatitis; HIV hb positive; Hypertensive disorder; Migraine; panic attack; Vital Signs: 15:58 BP 183 / 98; Pulse 61; Resp 16; Temp 97.8(TE); Pulse Ox 100% on R/A; Weight 74.84 kg; hb Height 5 ft. 4 in. ; Pain 10/10; 15:58 Body Mass Index 28.32 (74.84 kg, 162.56 cm) hb 15:58 Pain Scale: Adult hb ED Course: 15:53 Patient arrived in ED. kb3 16:00 Triage completed. hb 16:17 Rosemary Cespedes [facility]C [facility]. kb 16:17 Howard Samaniego MD is Attending Physician. kb 16:39 Sandra Cadet RN is Primary Nurse. ss Administered Medications: 16:41 Not Given (Patient Refused): Ketorolac IM 30 mg IM once ss Outcome: 16:41 Discharge ordered by MD. taylor Signatures: Rosemary Cespedes FNP-C [employer]-Sandra Villasenor RN RN ss Tata Rivera, ASHLEY RN Ava Mabry RN RN kb3 Corrections: (The following items were deleted from the chart) 16:00 15:58 Pulse 61bpm; Resp 16bpm; Pulse Ox 100% RA; Temp 97.8F Temporal; 74.84 kg; Height hb 5 ft. 4 in.; BMI: 28.3; Pain 10/10, Adult; hb
--- NOTE | 2022-08-06 16:42 | EDPHYS ---
Physician Documentation [facility] Name: Marjan Kolb Age: 67 yrs Sex: Female : 1955 Arrival Date: 08/06/2022 Time: 15:53 Bed 12 Private MD: ED Physician Howard Samaniego HPI: 08/06 16:39 This 67 yrs old Female presents to ER via EMS with complaints of hip pain. kb 16:39 The patient or guardian reports pain. that occurred at home, sustained from a fall, kb There is no obvious deformity, The patient is able to ambulate with assistance. The patient is able to bear partial body weight. The complaints affect the left hip and left iliac crest. Onset: The symptoms/episode began/occurred 2 day(s) ago. Modifying factors: The symptoms are alleviated by nothing, the symptoms are aggravated by nothing. Associated signs and symptoms: Loss of consciousness: the patient experienced no loss of consciousness, Pertinent positives: None. Severity of symptoms: At their worst the symptoms were moderate, in the emergency department the symptoms are unchanged. The patient has not experienced similar symptoms in the past. The patient has not recently seen a physician. 16:41 Patient presents for continued left hip pain that began after a fall 2 days ago.. kb Historical: - Allergies: 16:00 Azithromycin; hb 16:00 Bactrim; hb 16:00 butorphanol; hb 16:00 Fentanyl; hb 16:00 Reglan; hb 16:00 Sulfa (Sulfonamide Antibiotics); hb 16:00 TRIMETHOPRIM; hb - PMHx: 16:00 Anxiety; Atrial fibrillation; Bipolar disorder; esophageal varicies; Hepatitis; HIV hb positive; Hypertensive disorder; Migraine; panic attack; ROS: 16:32 Constitutional: Negative for fever, chills, and weight loss. kb 16:32 MS/extremity: Positive for pain, tenderness, of the left iliac crest and left hip. 16:32 All other systems are negative. Exam: 16:32 Constitutional: This is a well developed, well nourished patient who is awake, alert, kb and in no acute distress. Head/Face: Normocephalic, atraumatic. ENT: Moist Mucous membranes Cardiovascular: Regular rate and rhythm with a normal S1 and S2. No gallops, murmurs, or rubs. No pulse deficits. Respiratory: Respirations even and unlabored. No increased work of breathing. Talking in full sentences Abdomen/GI: Soft, non-tender. No distention Neuro: Awake and alert, GCS 15, oriented to person, place, time, and situation. Moves all extremities. Normal gait. 16:32 Musculoskeletal/extremity: Extremities: grossly normal except: noted in the left hip and left iliac crest: ecchymosis, pain, tenderness, ROM: intact in all extremities, Circulation is intact in all extremities. Sensation intact. Weight bearing: able to fully bear weight. Vital Signs: 15:58 BP 183 / 98; Pulse 61; Resp 16; Temp 97.8(TE); Pulse Ox 100% on R/A; Weight 74.84 kg; hb Height 5 ft. 4 in. ; Pain 10/10; 15:58 Body Mass Index 28.32 (74.84 kg, 162.56 cm) hb 15:58 Pain Scale: Adult hb MDM: 16:17 Patient medically screened. kb 16:33 Differential diagnosis: hip fracture, intertrochanteric fracture, strain, contusion. kb Data reviewed: vital signs, nurses notes. I considered the following discharge prescriptions or medication management in the emergency department I discussed and recommended Over The Counter medications, Pain Medications: At this time, prescription pain medications are not recommended. 16:34 ED course: Patient reports she fell on 04 August and has had continued pain since that kb fall. Presents today for left hip pain. CT from August 04 reviewed, no traumatic findings identified. Patient has significant tenderness to left hip. Will obtain x-ray. Patient offered nonnarcotic pain management including nonpharmacologic pain management. Patient upset that narcotics will not be given. Patient has had over 200 visits to this ER, most for pain related complaints. This is patient's third visit for this particular complaint. Patient elected to leave the ER prior to x-ray and without intervention.. 08/06 16:30 Order name: Hip Left 2 View XRAY kb Administered Medications: 16:41 Not Given (Patient Refused): Ketorolac IM 30 mg IM once ss Disposition Summary: 08/06/22 16:41 Discharge Ordered Location: Home Condition: Stable Diagnosis - Pain in left hip kb Followup: kb - With: Emergency Department - When: As needed - Reason: Worsening of condition Followup: kb - With: Private Physician - When: 2 - 3 days - Reason: Recheck today's complaints, Continuance of care, Re-evaluation by your physician Discharge Instructions: - Discharge Summary Sheet kb - Musculoskeletal Pain kb Forms: - Medication Reconciliation Form kb - Thank You Letter kb - Antibiotic Education kb - Prescription Opioid Use kb Signatures: Dispatcher [employer] EDRosemary Turner, Tata Ragsdale RN RN Sandra Cadet RN ss Corrections: (The following items were deleted from the chart) 16:41 16:39 Ice pack ordered. kb ss
[2022-08-06] MEDS ORDERED: FUROSEMIDE 40 MG/4 ML VIAL ONE (16:52)
[2022-08-06 20:27] VITALS: BP 183/98; TEMP 97.8; O2SAT 100
== END 2022-08-06 16:44 | disposition home or self-care (01) ==
LOC: ER 15:45
DX: M25.552 Pain in left hip (principal)
CPT/HCPCS: 99283; J1940

== ENCOUNTER 2022-08-07 23:27 | Emergency (ER) | payer OTHER ==
--- OUTSIDE RECORDS SUMMARY | 2022-08-07 23:48 | XMS REPORT | Continuity of Care Document ---
:1955 Author Organization [facility] t Address [address] [place] [address] Care Team Providers Name Role Phone Urmila [...] Attending Clinician Unavailable Robbi Bal Attending Clinician [facility] Attending Clinician Unavailable Isaias Whiteside RN Attending Clinician Unavailable TOMY MARIE Attending Clinician Unavailable Reilly Means MD Attending Clinician Ofe Shields MD Attending Clinician Tomy Marie MD Attending Clinician Doctor Unassigned, Dell Attending Clinician Unavailable Bill COLES Attending Clinician Unavailable Bill Rose Attending Clinician CHARITY MCALLISTER Attending Clinician Unavailable Charity Mcallister MD Attending Clinician GADIEL KOEHLER Attending Clinician Unavailable Mike Lund Attending Clinician Unavailable NIKOLAI REEVES Attending Clinician Unavailable Eliseo Arce MD Attending Clinician Carol Ann IZQUIERDO, Sarai Lieberman Attending Clinician [phone] Ashly Pelletier MA Attending Clinician Unavailable Dagoberto Bass MD Attending Clinician Cuba Evangelista Attending Clinician Lab, [facility] Pob I Attending Clinician Unavailable Monica Rodas MA Attending Clinician Unavailable Agustina Ortiz MA Attending Clinician Unavailable Rody Maguire RN Attending Clinician Unavailable Remigio MD, Saraswathi V. Attending Clinician HEMATPOUR, BEVERLY Attending Clinician Unavailable Caridad SALGUERO, Gloria Attending Clinician Xiao RAMIREZ, Michael Corbin Attending Clinician Unavailable Team, [facility] Attending Clinician UnavailDO PORSHA Newell Attending Clinician Unavailable Gadiel Koehler MD Attending Clinician Tyrone JENKINS, Eveline Sierra Attending Clinician Eladio Colorado RN Attending Clinician Unavailable Geraldine SALGUERO, Leyda Attending Clinician [phone] Selvin RAMIREZ, Stefanie Attending Clinician Unavailable [...] gabino [facility] COMMUNITY PLAN [id number] 2012 STAR PLUS OON 00:00:00 [facility] [id number] 2019 DUAL COMPLETE HMO 00:00:00 [facility] [id number] 2019 PLUS 00:00:00 [facility] [id number] 2019 [facility] [place] STAR 00:00:00 [employer] MEDICARE ADV [id number] 2019 2019 00:00:00 00:00:00 Problems Condition Condition Condition Status Onset Resolution Last Treating Co mments Source Name Details Category Date Date Treatment Clinician Date Dyspnea, Dyspnea, Disease Active Unive rs unspecifie unspecifie 02-11 it y of d type d type 00:00: [place] [address] Medical Branch Gastropare Gastropare Disease Active Overview : Methodi sis sis 4-[address] 00:[facility] note l might be different from the original. Added automatic ally from request for surgery [id number] Dysphagia Dysphagia Disease Active Overview: Methodi 4-[address] 00:00: [facility] 00 note l might be different from the original. Added automatic ally from request for surgery [id number] CCL / EPS CCL / EPS Diagnosis [...] [facility] hoxazole 1-25 Clear 00:00: Garcia 00 [facility] trimetho DA Active SV [facility] prim 1-25 Clear 00:00: Garcia [facility] codeine DA Active SV N/V [facility] 1-25 Clear 00:00: Garica [facility] Metoclop Propensi Active [place] ramide ty to 12-12 Health adverse 00:00: reaction 00 s BUTORPHA DRUG Active Unknown-Cmnt Un matt NOL INGREDI 11-25 ity of 00:00: [place] [...] 2017- Univers INGREDI 2-08 ity of 00:00: [place] [facility] TRIMETHO DRUG Active Hives Univers [...] Date Stop Date Source Natural father Diabetes [facility] Natural father Other - see comments [facility] Natural father Coronary Heart [facility] [place] Disease [facility] Hy[facility] Natural mother [facility] Social History Social Habit Start Date Stop Date Quantity Comments Source History SDOH [place] Alcohol Frequency Hospita l History SDOH [place] Alcohol Std Drinks Hospit al History SDCT [facility] Alcohol Binge Hospital Exposure to 2022-04-30 2022-05-10 Yes University of SARS-CoV-2 (event) 00:00:00 10:25:00 [facility] Tobacco use and 2022-02-11 2022-02-11 Former smokeless Uni versity of exposure 00:00:00 00:00:[address] [facility] Tobacco Comment 2022-02-11 2022-02-11 Smokes approx 1-2 Un iversity of 00:00:00 00:00:00 cigarettes per [facility] day when she Branch smokes Alcohol intake 2020-12-08 2020-12-08 Current drinker [facility] 00:00:00 00:00:00 of [facility] (finding) Cigarettes smoked 2020-09-05 2020-09-[address] current ([facility]:00[facility] - [facility] Cigarette 2020-09-05 2020-09-05 [facility] pack-years 00:00:00 00:00:00 Hospital Alcohol Comment 2016-09-23 2016-09-23 rare [facility]ism 00:00:00 00:00:00 Hospital History of tobacco 2011-09-29 User of smokeless University of use 00:00:00 tobacco [facility] Sex Assigned At [birth year] [facility] 00:00:00 00:00:00 Smoking Status Start Date Stop Date Source Ex-smoker 2022-02-11 00:00:00 2022-02-11 00:00:00 Universi ty of [facility] Medications Ordered Filled Start Stop Current Ordering Indication Dosage Frequency Signature Comments Components Source Medication Medication Date Date Medication? Clinician (SIG) Name Name potassium 2021-05- No 10meq 10 mEq, IV Univers chloride in 07-11 Piggyback, i ty of water 10 20:00: 22:00 ONCE, 1 [place] mEq/100 mL 00 :00 dose, On Medic al RTU 10 mEq [facility] 05/10/22 at 1400, Administer over 60 Minutes, 100 mL magnesium 2021-05 No 800mg 800 mg, Uni vers oxide 07-11 Oral, ity of (MAG-OX 20:00: 19:37 ONCE, 1 [place] 400) tablet 00 :00 dose, On Medi porfirio 800 mg [facility] 05/10/22 at 1400, Routine KCL 2021-05 No 40meq 40 mEq, Univers (KLOR-CON 07-11 Oral, ity of M20) tablet 19:15: 19:37 ONCE, 1 [place] 40 mEq 00 :00 dose, On Medical [facility] 05/10/22 at 1315, JOE hydralAZINE 2021-05 No 10mg 10 mg, Uni vers (APRESOLINE 07-11 Slow IV ity of ) injection 18:45: 18:42 [place] 10 mg 00 :00 ONCE, 1 Medical dose, On [facility] 05/10/22 at 1245, JOE NaCl 0.9% 2021-05 No 1000mL at 999 Uni vers (NS) bolus 07-11 mL/hr, ity of infusion 17:45: 20:00 1,000 mL, [place] 1,000 mL 00 :00 IV Medical Infusion, Branch ONCE, 1 dose, On [facility] 05/10/22 at 1145, JOE cefpodoxime 2021-05- No [id number] 100mg Take 1 Univers 100 mg 2-17 12-25 tablet by ity of tablet 00:00: 05:59 mouth in [place] 00 :00 the [facility] and 1 tablet in the evening. Do all this for 7 days. cefpodoxime 2021-05- No [id number] 100mg Take 1 Univers 100 mg 2-17 12-25 tablet by ity of tablet 00:00: 05:59 mouth in [place] 00 :00 the [facility] morning [place] and 1 tablet in the evening. Do all this for 7 days. cefpodoxime 2021-05- No [id number] 100mg Take 1 Univers 100 mg 2-17 12-25 tablet by ity of tablet 00:00: 05:59 mouth in [place] 00 :00 the Medical morning Branch and [...] Infusion, Medical ONCE, 1 Branch dose, On [facility] 05/06/22 at 1800, JOE ketorolac 2021-05 No 15mg 15 mg, Unive rs (TORADOL) 2-15 12-15 Slow IV ity of injection 22:00: 22:19 Push, [place] 15 mg 00 :00 ONCE, 1 Medical dose, On Branch [facility] 05/06/22 at 1600, JOE NaCl 0.9% 2021-05- No 1000mL at 999 Uni vers (NS) bolus 2-15 12-15 mL/hr, ity of infusion 22:00: 23:41 1,000 mL, [place] 1,000 mL 00 :00 IV Medical Infusion, Branch ONCE, 1 dose, On [facility] 05/06/22 at 1600, JOE ondansetron 2021-05- No 8mg 8 mg, Slow Univers (ZOFRAN 2-15 12-15 IV Push, ity of (PF)) 21:15: 22:19 ONCE, 1 [place] injection 8 00 :00 dose, On Medi porfirio mg [place] 05/06/22 at 1515, JOE ondansetron 2021-05 Yes [id number] 1-2 U nivers 4 mg tablet 2-15 tablets ity o f 00:00: every 8 [place] 00 hours as Medical needed for Branch nausea benzonatate 2021-05 Yes [id number] 200mg Take 1 Univers 200 mg 2-15 capsule by ity of capsule 00:00: mouth 3 [place] 00 (three) Medical times Branch daily as needed for Cough. albuterol 2021-05 Yes [id number] 2{puff} Inhale 2 Univers 90 2-15 Puffs ity of mcg/actuati 00:00: every 4 [place] on inhaler 00 (four) Medical hours as Branch needed for Wheezing or Shortness of Breath. butalbital- 2021-05 Yes [id number] 1{tbl} Take 1 Univers acetaminoph 2-15 tablet by ity of en-caff 00:00: mouth [place] 50-325-40 00 every 4 Medical mg tablet (four) Branch hours as needed (headache) . ondansetron 2021-05 Yes [id number] 1-2 U nivers 4 mg tablet 2-15 tablets ity o f 00:00: every 8 [place] 00 hours as Medical needed for Branch nausea benzonatate 2021-05 Yes [id number] 200mg Take 1 Univers 200 mg 2-15 capsule by ity of capsule 00:00: mouth 3 [place] 00 (three) Medical times Branch daily as needed for Cough. albuterol 2021-05 Yes [id number] 2{puff} Inhale 2 Univers 90 2-15 Puffs ity of mcg/actuati 00:00: every 4 [place] on inhaler 00 (four) Medical hours as Branch needed for Wheezing or Shortness of Breath. butalbital- 2021-05 Yes [id number] 1{tbl} Take 1 Univers acetaminoph 2-15 tablet by ity of en-caff 00:00: mouth [place] 50-325-40 00 every 4 Medical mg tablet (four) Branch hours as needed (headache) . ondansetron 2021-05 Yes [id number] 1-2 U nivers 4 mg tablet 2-15 tablets ity o f 00:00: every 8 [place] 00 hours as Medical needed for Branch nausea benzonatate 2021-05 Yes [id number] 200mg Take 1 Univers 200 mg 2-15 capsule by ity of capsule 00:00: mouth 3 [place] 00 (three) Medical times Branch daily as needed for Cough. albuterol 2021-05 Yes [id number] 2{puff} Inhale 2 Univers 90 2-15 Puffs ity of mcg/actuati 00:00: every 4 [place] on inhaler 00 (four) Medical hours as Branch needed for Wheezing or Shortness of Breath. butalbital- 2021-05 Yes [id number] 1{tbl} Take 1 Univers acetaminoph 2-15 tablet by ity of en-caff 00:00: mouth [place] 50-325-40 00 every 4 Medical mg tablet (four) Branch hours as needed (headache) . ondansetron 2021-05 Yes [id number] 1-2 U nivers 4 mg tablet 2-15 tablets ity o f 00:00: every 8 [place] 00 hours as Medical needed for Branch nausea benzonatate 2021-05 Yes [id number] 200mg Take 1 Univers 200 mg 2-15 capsule by ity of capsule 00:00: mouth 3 [place] 00 (three) Medical times Branch daily as needed for Cough. albuterol 2021-05 Yes [id number] 2{puff} Inhale 2 Univers 90 2-15 Puffs ity of mcg/actuati 00:00: every 4 [place] on inhaler 00 (four) Medical hours as Branch needed for Wheezing or Shortness of Breath. butalbital- 2021-05 Yes [id number] 1{tbl} Take 1 Univers acetaminoph 2-15 tablet by ity of en-caff 00:00: mouth [place] 50-325-40 00 every 4 Medical mg tablet (four) Branch hours as needed (headache) . ondansetron 2021-05 Yes [id number] 1-2 U nivers 4 mg tablet 2-15 tablets ity o f 00:00: every 8 [place] 00 hours as Medical needed for Branch nausea benzonatate 2021-05 Yes [id number] 200mg Take 1 Univers 200 mg 2-15 capsule by ity of capsule 00:00: mouth 3 [place] 00 (three) Medical times Branch daily as needed for Cough. albuterol 2021-05 Yes [id number] 2{puff} Inhale 2 Univers 90 2-15 Puffs ity of mcg/actuati 00:00: every 4 [place] on inhaler 00 (four) Medical hours as Branch needed for Wheezing or Shortness of Breath. butalbital- 2021-05 Yes [id number] 1{tbl} Take 1 Univers acetaminoph 2-15 tablet by ity of en-caff 00:00: mouth [place] 50-325-40 00 every 4 Medical mg tablet (four) Branch hours as needed (headache) . ondansetron 2021-05 Yes [id number] 1-2 U nivers 4 mg tablet 2-15 tablets ity o f 00:00: every 8 [place] 00 hours as Medical needed for Branch nausea benzonatate 2021-05 Yes [id number] 200mg Take 1 Univers 200 mg 2-15 capsule by ity of capsule 00:00: mouth 3 [place] 00 (three) Medical times Branch daily as needed for Cough. albuterol 2021-05 Yes [id number] 2{puff} Inhale 2 Univers 90 2-15 Puffs ity of mcg/actuati 00:00: every 4 [place] on inhaler 00 (four) Medical hours as Branch needed for Wheezing or Shortness of Breath. butalbital- 2021-05 Yes [id number] 1{tbl} Take 1 Univers acetaminoph 2-15 tablet by ity of en-caff 00:00: mouth [place] 50-325-40 00 every 4 Medical mg tablet (four) Branch hours as needed (headache) . nirmatrelvi 2021-05- No [id number] 2{tbl} Take 2 Univers r-ritonavir 2-15 12-21 tablets by i ty of (PAXLOVID, 00:00: 05:59 mouth in [place] EUA,) 300 00 :00 the Medical mg (150 mg morning Branch x 2)-100 mg and 2 tablet tablets in the evening. Do all this for 5 days. nirmatrelvi 2021-05- No [id number] 2{tbl} Take 2 Univers r-ritonavir 2-15 12-21 tablets by i ty of (PAXLOVID, 00:00: 05:59 mouth in [place] EUA,) 300 00 :00 the Medical mg (150 mg morning Branch x 2)-100 mg and 2 tablet tablets in the evening. Do all this for 5 days. nirmatrelvi 2021-05- No [id number] 2{tbl} Take 2 Univers r-ritonavir 2-15 12-21 tablets by i ty of (PAXLOVID, 00:00: 05:59 mouth in [place] EUA,) 300 00 :00 the Medical mg (150 mg morning Branch x 2)-100 mg and 2 tablet tablets in the evening. Do all this for 5 days. nirmatrelvi 2021-05- No [id number] 2{tbl} Take 2 Univers r-ritonavir 2-15 - [...] 04/22/22 at 1645, Routine amoxicillin 2021-05 Yes [id number] 1{tbl} Take 1 Univers -clavulanat 2- [id number] tablet by i ty of e 875-125 00:00: mouth [place] mg per 00 every 12 Medical tablet (twelve) Branch hours. ondansetron 2021-05 Yes [id number] 4mg Take 1 Univers 4 mg 2- [id number] tablet by ity of disintegrat 00:00: mouth [place] ing tablet 00 every 8 Medica l (eight) Branch hours as needed for Nausea and Vomiting (N/V). amoxicillin 2021-05 Yes [id number] 1{tbl} Take 1 Univers -clavulanat 2- [id number] tablet by i ty of e 875-125 00:00: mouth [place] mg per 00 every 12 Medical tablet (twelve) Branch hours. ondansetron 2021-05 Yes [id number] 4mg Take 1 Univers 4 mg 2-01 [id number] tablet by ity of disintegrat 00:00: mouth [place] ing tablet 00 every 8 Medica l (eight) Branch hours as needed for Nausea and Vomiting (N/V). amoxicillin 2021-05 Yes [id number] 1{tbl} Take 1 Univers -clavulanat 2-01 [id number] tablet by i ty of e 875-125 00:00: mouth [place] mg per 00 every 12 Medical tablet (twelve) Branch hours. ondansetron 2021-05 Yes [id number] 4mg Take 1 Univers 4 mg 2-01 [id number] tablet by ity of disintegrat 00:00: mouth [place] ing tablet 00 every 8 Medica l (eight) Branch hours as needed for Nausea and Vomiting (N/V). amoxicillin 2021-05 Yes [id number] 1{tbl} Take 1 Univers -clavulanat 2-01 [id number] tablet by i ty of e 875-125 00:00: mouth [place] mg per 00 every 12 Medical tablet (twelve) Branch hours. ondansetron 2021-05 Yes [id number] 4mg Take 1 Univers 4 mg 2-01 [id number] tablet by ity of disintegrat 00:00: mouth [place] ing tablet 00 every 8 Medica l (eight) Branch hours as needed for Nausea and Vomiting (N/V). amoxicillin 2021-05 Yes [id number] 1{tbl} Take 1 Univers -clavulanat 2-01 [id number] tablet by i ty of e 875-125 00:00: mouth [place] mg per 00 every 12 Medical tablet (twelve) Branch hours. ondansetron 2021-05 Yes [id number] 4mg Take 1 Univers 4 mg 2- [id number] tablet by ity of disintegrat 00:00: mouth [place] ing tablet 00 every 8 Medica l (eight) Branch hours as needed for Nausea and Vomiting (N/V). amoxicillin 2021-05 Yes [id number] 1{tbl} Take 1 Univers -clavulanat 2-01 [id number] tablet by i ty of e 875-125 00:00: mouth [place] mg per 00 every 12 Medical tablet (twelve) Branch hours. ondansetron 2021-05 Yes [id number] 4mg Take 1 Univers 4 mg 2-01 [id number] tablet by ity of disintegrat 00:00: mouth [place] ing tablet 00 every 8 Medica l (eight) Branch hours as needed for Nausea and Vomiting (N/V). amoxicillin 2021-05 Yes [id number] 1{tbl} Take 1 Univers -clavulanat 2-01 [id number] tablet by i ty of e 875-125 00:00: mouth [place] mg per 00 every 12 Medical tablet (twelve) Branch hours. ondansetron 2021-05 Yes [id number] 4mg Take 1 Univers 4 mg 2-01 [id number] tablet by ity of disintegrat 00:00: mouth [place] ing tablet 00 every 8 Medica l (eight) Branch hours as needed for Nausea and Vomiting (N/V). amoxicillin 2021-05 Yes [id number] 1{tbl} Take 1 Univers -clavulanat 06-23 [id number] tablet by i ty of e 875-125 00:00: mouth [place] mg per 00 every 12 Medical tablet (twelve) Branch hours. ondansetron 2021-05 Yes [id number] 4mg Take 1 Univers 4 mg 06-23 [id number] tablet by ity of disintegrat 00:00: mouth [place] ing tablet 00 every 8 Medica l (eight) Branch hours as needed for Nausea and Vomiting (N/V). zoster 2021-05- No [id number] .5mL 0.5 mL by Univers vaccine, 0-14 10-15 9104 Intramuscu ity of recombinant 00:00: 04:59 lar route [place] (SHINGRIX, 00 :00 once now Medic al PF,) for 1 Branch injection dose. And repeat in 2-6 months zoster 2021-05- No [id number] .5mL 0.5 mL by Univers vaccine, 0-14 10-15 9104 Intramuscu ity of recombinant 00:00: 04:59 lar route [place] (SHINGRIX, 00 :00 once now Medic al PF,) for 1 Branch injection dose. And repeat in 2-6 months zoster 2021-05- No [id number] .5mL 0.5 mL by Univers vaccine, 0-14 [...] o f 1 mg tablet 19:28: at [place] [address] bedtime. Medical Branch traZODone 2021-0 Yes 50mg Take 50 mg Un matt 100 mg 9-27 by mouth ity of tablet 19:28: at [place] [address] bedtime. Medical Branch hydralAZINE 2021-0 Yes 25mg [...] 100 mg 04 (two) Medical tablet times [place] daily. amLODIPine 2021-0 Yes 10mg Take 10 mg U nivers (NORVASC) 9-27 by mouth ity of 10 mg 19:28: daily. [place] tablet 04 Medical Branch clonazePAM 2021-0 Yes 1mg Take 1 mg Un matt (KLONOPIN) 9-27 by mouth ity o f 1 mg tablet 19:28: at [place] [address] bedtime. Medical Branch traZODone 2021-0 Yes 50mg Take 50 mg Un matt 100 mg 9-27 by mouth ity of tablet 19:28: at [place] [address] bedtime. Medical Branch hydralAZINE 2021-0 Yes 25mg [...] o f 1 mg tablet 19:28: at [place] [address] bedtime. Medical Branch traZODone 2021-0 Yes 50mg Take 50 mg Un matt 100 mg 9-27 by mouth ity of tablet 19:28: at [place] [address] bedtime. Medical Branch hydralAZINE 2021-0 Yes 25mg [...] o f 1 mg tablet 19:28: at [place] [address] bedtime. Medical Branch traZODone 2021-0 Yes 50mg Take 50 mg Un matt 100 mg 9-27 by mouth ity of tablet 19:28: at [place] [address] bedtime. Medical Branch hydralAZINE 2021-0 Yes 25mg [...] o f 1 mg tablet 19:28: at [place] [address] bedtime. Medical Branch traZODone 2021-0 Yes 50mg Take 50 mg Un matt 100 mg 9- by mouth ity of tablet 19:28: at [place] [address] bedtime. Medical Branch hydralAZINE 2021-0 Yes 25mg [...] o f 1 mg tablet 19:28: at [place] [address] bedtime. Medical Branch traZODone 2022-0 Yes 50mg Take 50 mg Un matt 100 mg 9-27 by mouth ity of tablet 19:28: at [place] [address] bedtime. Medical Branch hydralAZINE 2-0 Yes 25mg [...] o f 1 mg tablet 19:28: at [place] [address] bedtime. Medical Branch traZODone 2-0 Yes 50mg Take 50 mg Un matt 100 mg 9-27 by mouth ity of tablet 19:28: at [place] [address] bedtime. Medical Branch hydralAZINE 2021-0 Yes 25mg [...] o f 1 mg tablet 19:28: at [place] [address] bedtime. Medical Branch traZODone 2022-0 Yes 50mg Take 50 mg Un matt 100 mg 9-27 by mouth ity of tablet 19:28: at [place] [address] bedtime. Medical Branch hydralAZINE 2-0 Yes 25mg [...] o f 1 mg tablet 19:28: at [place] [address] bedtime. Medical Branch traZODone 2-0 Yes 50mg Take 50 mg Un matt 100 mg 9-27 by mouth ity of tablet 19:28: at [place] [address] bedtime. Medical Branch hydralAZINE 2-0 Yes 25mg [...] o f 1 mg tablet 19:28: at [place] [address] bedtime. Medical Branch traZODone 2021-0 Yes 50mg Take 50 mg Un matt 100 mg 9-27 by mouth ity of tablet 19:28: at [place] [address] bedtime. Medical Branch hydralAZINE 2021-0 Yes 25mg [...] o f 1 mg tablet 19:28: at [place] [address] bedtime. Medical Branch traZODone 2021-0 Yes 50mg Take 50 mg Un matt 100 mg 9-27 by mouth ity of tablet 19:28: at [place] [address] bedtime. Medical Branch hydralAZINE 2021-0 Yes 25mg [...] o f 1 mg tablet 19:28: at [place] [address] bedtime. Medical Branch traZODone 2-0 Yes 50mg Take 50 mg Un matt 100 mg 9-27 by mouth ity of tablet 19:28: at [place] [address] bedtime. Medical Branch hydralAZINE 2-0 Yes 25mg [...] o f 1 mg tablet 19:28: at [place] [address] bedtime. Medical Branch traZODone 2021-0 Yes 50mg Take 50 mg Un matt 100 mg 9-27 by mouth ity of tablet 19:28: at [place] [address] bedtime. Medical Branch hydralAZINE 2021-0 Yes 25mg [...] o f 1 mg tablet 19:28: at [place] [address] bedtime. Medical Branch traZODone 2021-0 Yes 50mg Take 50 mg Un matt 100 mg 9-27 by mouth ity of tablet 19:28: at [place] [address] bedtime. Medical Branch hydralAZINE 2021-0 Yes 25mg [...] mouth ity of 10 mg 19:28: daily. [place] tablet 04 Medical Branch clonazePAM 2021-0 Yes 1mg Take 1 mg Un matt (KLONOPIN) 9-27 by mouth ity o f 1 mg tablet 19:28: at [place] [address] bedtime. Medical Branch traZODone 2021-0 Yes 50mg Take 50 mg Un matt 100 mg 9-27 by mouth ity of tablet 19:28: at [place] [address] bedtime. Medical Branch hydralAZINE 2021-0 Yes 25mg [...] o f 1 mg tablet 19:28: at [place] [address] bedtime. Medical Branch traZODone Yes 50mg Take 50 mg Un matt 100 mg 02-16 by mouth ity of tablet 19:28: at [place] [address] bedtime. Medical Branch cefpodoxime 2021- No [id number] 200mg Take 1 Univers 200 mg 02-16 tablet by ity of tablet 00:00: 04:59 mouth in [place] 00 :00 the Medical morning Branch and 1 tablet in the evening. Do all this for 3 days. cefpodoxime 2021- No [id number] 200mg Take 1 Univers 200 mg 02-16 tablet by ity of tablet 00:00: 04:59 mouth in [place] 00 :00 the Medical morning Branch and 1 tablet in the evening. Do all this for 3 days. haloperidol 2021- No 2mg 2 mg, Slow Univers lactate 02-15 IV Push, ity of (HALDOL) 09:00: 09:12 ONCE, 1 [place] injection 2 00 :00 dose, On Medi porfirio mg Mon Branch 02/15/22 at 0400, Routine hydroCHLORO Yes 25mg 25 mg, Univ ers thiazide 9-25 Oral, ity of (ESIDRIX) 14:00: DAILY, [place] capsule 25 00 First dose Med ical mg on Sun Branch 02/14/22 at 0900, Until Discontinu ed, Routine butalbital- Yes 1{tbl} 1 tablet, Univers acetaminoph - Oral, ity of en-caff 18:46: Q6HPRN, [place] (ESGIC) 06 Starting Medical 50-325-40 on Sat [...] of 2,000 mg in 17:00: 18:24 Piggyback, [place] NaCl 0.9% 00 :00 Q24H ABX, Medic [...] (MYCOLOG) 19:00: dose on [place] cream 00 [facility] Medical 02/11/22 at Branch 1400, Until Discontinu ed, Routine busPIRone 202-0 Yes 30mg 30 mg, Univer s (BUSPAR) 02-11 Oral, BID, ity o f tablet 30 18:00: First dose [place] mg 00 on [facility] Medical [...] First dose [place] tablet 100 00 on [facility] mg 02/11/22 at Branch 1300, Until Discontinu ed, Routine lisinopriL 2021-0 Yes 40mg 40 mg, Unive rs (PRINIVIL,Z 02-11 Oral, BID, it y of ESTRIL) 18:00: First [place] tablet 40 00 on [facility] mg 02/11/22 at Branch 1300, Until Discontinu ed, Routine emtricitabi 2021-0 Yes 1{tbl} 1 tablet, [facility] 02-11 Oral, ity of r alafen 18:00: DAILY, [place] (DESCOVY) 00 First dose Medi porfirio tablet 1 on [facility] tablet 02/11/22 at 1300, Until Discontinu ed, Routine ipratropium 2021-0 Yes .5mg 0.5 mg, Uni vers (ATROVENT) 02-11 Inhalation ity of 0.02 % 17:57: , MERY, [place] nebulizer 10 Starting Medica l solution on [facility] Branch 0.5 mg 02/11/22 at 1257, [...] :24 Starting Medi porfirio tablet 1 on [facility] Branch tablet 02/11/22 at 0911, Until Tue02/12/22 at 1237, Routine, Pain (scale 7-10) melatonin Yes 3mg 3 mg, Univers (MELATIN) 02-11 Oral, ity of tablet 3 mg 14:08: QHSPRN, [place] 17 Starting Medical on [facility] Branch 02/11/22 at 0908, Until Discontinu ed, Routine, Insomnia acetaminoph 2021- No 1{tbl} 1 tablet, Univers en-codeine 02-11 Oral, ity of (TYLENOL 14:06: 17:37 Q6HPN, [place] #3) 300-30 19 :24 Starting Medic al mg tablet 1 on [facility] Branch tablet 02/11/22 at 0906, Until Tue02/12/22 at 1237, Routine, Pain (scale 4-6) sennosides- Yes 1{tbl} 1 tablet, Univers docusate 02-11 Oral, ity of sodium 14:06: QDAILYPRN, [place] (SENOKOT-S) 09 Starting Medi porfirio 8.6-50 mg on [facility] Branch per tablet 02/11/22 at 1 tablet 0906, Until Discontinu ed, Routine, Constipati on ondansetron Yes 4mg 4 mg, Slow [facility] (ZOFRAN 02-11 IV Push, ity of (PF)) 14:05: Q6HPRN, [place] injection 4 59 Starting Medi porfirio mg on [place] Branch 02/11/22 at 0905, Until Discontinu ed, Routine, Nausea and Vomiting (N/V) acetaminoph Yes 650mg 650 mg, Un matt en 02-11 Oral, ity of (TYLENOL) 14:04: Q6HPRN, [place] tablet 650 37 Starting Medic al mg [...] ity of ) 25 mg 09:10: daily. [place] tablet 54 [facility] amLODIPine 0 Yes 10mg Take 10 mg U nivers (NORVASC) 02-11 by mouth ity of 10 mg 09:10: daily. [place] tablet 54 [facility] Branch piperacilli 2021- No 3.375g 3.375 [...] of therapy: 72 hours iopamidol 2- No [id number] 60mL 60 mL, Univers (ISOVUE 02-11 Intravenou [...] 00 :00 dose, On Medi porfirio mg [facility] 02/11/22 at 0045, JOE acetaminoph 2021- No 975mg 975 mg, U nivers en 02-11 Oral, ity of (TYLENOL) 05:15: 04:19 ONCE, 1 [place] tablet 975 00 :00 dose, On Medic al mg [facility] 02/11/22 at 0015, JOE emtricitabi 0 Yes [id number] Take one Univers ne-tenofovi 9-12 po daily ity of r alafen 00:00: [place] (DESCOVY) 00 Medical tablet Branch emtricitabi 0 Yes [id number] Take one [facility] ne-tenofovi 9-12 po daily ity of r alafen 00:00: [place] (DESCOVY) Medical tablet Branch emtricitabi 0 Yes [id number] Take one Univers ne-tenofovi 9-12 po daily ity of r alafen 00:00: [place] (DESCOVY) 00 Medical tablet Branch emtricitabi 0 Yes [id number] Take one Univers ne-tenofovi 9-12 po daily ity of r alafen 00:00: [place] (DESCOVY) 00 Medical tablet Branch emtricitabi Yes [id number] Take one Univers ne-tenofovi 9-12 po daily ity of r alafen 00:00: [place] (DESCOVY) 00 Medical tablet Branch emtricita Yes [id number] Take one Univers ne-tenofovi 9-12 po daily ity of r alafen 00:00: [place] (DESCOVY) 00 Medical tablet Branch emtricita Yes [id number] Take one Univers ne-tenofovi 9-12 po daily ity of r alafen 00:00: [place] (DESCOVY) 00 Medical tablet Branch emtricita Yes [id number] Take one Univers ne-tenofovi 9-12 po daily ity of r alafen 00:00: [place] (DESCOVY) 00 Medical tablet Branch emtricita Yes [id number] Take one Univers ne-tenofovi 9-12 po daily ity of r alafen 00:00: [place] (DESCOVY) 00 Medical tablet Branch [facility] [place] [id number] Take one Univers ne-tenofovi 9-12 po daily ity of r alafen 00:00: [place] (DESCOVY) 00 Medical tablet Branch [facility] [id number] Take one Univers ne-tenofovi 9-12 po daily ity of r alafen 00:00: [place] (DESCOVY) 00 Medical tablet Branch emtricita Yes [id number] Take one Univers ne-tenofovi 9-12 po daily ity of r alafen 00:00: [place] (DESCOVY) 00 Medical tablet Branch emtricita Yes [id number] Take one Univers ne-tenofovi 9-12 po daily ity of r alafen 00:00: [place] (DESCOVY) 00 Medical tablet Branch emtricita Yes [id number] Take one Univers ne-tenofovi 9-12 po daily ity of r alafen 00:00: [place] (DESCOVY) 00 Medical tablet Branch emtricita Yes [id number] Take one Univers ne-tenofovi 9-12 po daily ity of r alafen 00:00: [place] (DESCOVY) 00 Medical tablet Branch emtricitabi 2021-0 Yes [id number] Take one Univers ne-tenofovi 9-12 po daily ity of r alafen 00:00: [place] (DESCOVY) Medical tablet Branch emtricitabi 2021-0 Yes [id number] Take one Univers ne-tenofovi 9-12 po daily ity of r alafen 00:00: [place] (DESCOVY) Medical tablet Branch naproxen 2021-0 Yes [id number] 500mg Take 1 U nivers (NAPROSYN) 7-24 tablet by ity of 500 mg 00:00: mouth in [place] tablet 00 the Medical morning Branch and 1 tablet in the evening. Take with meals. methocarbam 2021-0 Yes [id number] 500mg Take 1 Univers oL 500 mg 7-24 tablet by ity o f tablet 00:00: mouth 4 [place] [address] ([facility]) [facility] times [place] daily. naproxen 2021-0 Yes [id number] 500mg Take 1 U nivers (NAPROSYN) 7-24 tablet by ity of 500 mg 00:00: mouth in [place] tablet 00 the Medical morning Branch and 1 tablet in the evening. Take with meals. methocarbam 2021-0 Yes [id number] 500mg Take 1 Univers oL 500 mg 7-24 tablet by ity o f tablet 00:00: mouth 4 [place] ([facility]) [facility] times [place] daily. naproxen 2021-0 Yes [id number] 500mg Take 1 U nivers (NAPROSYN) 7-24 tablet by ity of 500 mg 00:00: mouth in [place] tablet 00 the Medical morning Branch and 1 tablet in the evening. Take with meals. methocarbam 2021-0 Yes [id number] 500mg Take 1 Univers oL 500 mg 7-24 tablet by ity o f tablet 00:00: mouth 4 [place] ([facility]) [facility] times [place] daily. naproxen 2021-0 2022- No [id number] 500mg Take 1 Univers (NAPROSYN) 7-24 10-14 tablet by ity of 500 mg 00:00: 00:00 mouth in [place] tablet 00 :00 the Medical morning Branch and 1 tablet in the evening. Take with meals. methocarbam 2021-0 2022- No [id number] 500mg Take 1 [facility] oL 500 mg 7-24 10-14 tablet by ity of tablet 00:00: 00:00 mouth 4 [place] 00 :00 (four) Medical times Branch daily. naproxen 2021- No [id number] 500mg Take 1 Univers (NAPROSYN) 12-13 tablet by ity of 500 mg 00:00: 00:00 mouth in [place] tablet 00 :00 the Medical morning Branch and 1 tablet in the evening. Take with meals. methocarbam 2021- No [id number] 500mg Take 1 Univers oL 500 mg [...] ty of mg tablet 09:11: 00:00 (two) [place] 35 :00 times Medical daily. Branch traZODONE 2021- No Take by [facility] ers (DESYREL) 11-20 mouth at ity o f 10 mg/mL 09:10: 00:00 bedtime. [place] oral 28 :00 Medical suspension Branch hydralAZINE Yes 25mg Take 25 mg Univers (APRESOLINE 11-20 by mouth ity of ) 25 mg 08:47: daily. [place] tablet 47 Medical Branch cephALEXin 2021- No [id number] 500mg Take 1 Univers (KEFLEX) 10-24 capsule [...] Indication s: acute pain buPROPion 0 Yes [id number] 150mg Take 1 U nivers XL 4-12 tablet by ity of (WELLBUTRIN 00:00: mouth [place] XL) 150 mg 00 daily. Medical 24 hr Branch tablet busPIRone 2021-0 Yes [id number] 30mg Take 1 Un matt 30 mg 4-12 tablet by ity of tablet 00:00: mouth 2 [place] 00 (two) Medical times Branch daily. SERTraline 2021-0 Yes [id number] 200mg Take 2 [facility] 100 mg 4-12 tablets by ity of tablet 00:00: mouth [place] 00 daily. Medical Branch buPROPion 0 Yes [id number] 150mg Take 1 U nivers XL 4-12 tablet by ity of (WELLBUTRIN 00:00: mouth [place] XL) 150 mg 00 daily. Medical 24 hr Branch tablet busPIRone 2021-0 Yes [id number] 30mg Take 1 Un matt 30 mg 4-12 tablet by ity of tablet 00:00: mouth 2 [place] 00 (two) Medical times Branch daily. SERTraline 2021-0 Yes [id number] 200mg Take 2 [facility] 100 mg 4-12 tablets by ity of tablet 00:00: mouth [place] 00 daily. Medical Branch buPROPion 2021-0 Yes [id number] 150mg Take 1 U nivers XL 4-12 tablet by ity of (WELLBUTRIN 00:00: mouth [place] XL) 150 mg 00 daily. Medical 24 hr Branch tablet busPIRone 2021-0 Yes [id number] 30mg Take 1 Un matt 30 mg 4-12 tablet by ity of tablet 00:00: mouth 2 [place] 00 (two) Medical times Branch daily. SERTraline 2021-0 Yes [id number] 200mg Take 2 Univers 100 mg 4-12 tablets by ity of tablet 00:00: mouth [place] 00 daily. Medical Branch buPROPion 2021-0 Yes [id number] 150mg Take 1 U nivers XL 4-12 tablet by ity of (WELLBUTRIN 00:00: mouth [place] XL) 150 mg 00 daily. Medical 24 hr Branch tablet busPIRone 2021-0 Yes [id number] 30mg Take 1 Un matt 30 mg 4-12 tablet by ity of tablet 00:00: mouth 2 [place] 00 (two) Medical times Branch daily. SERTraline 0 Yes [id number] 200mg Take 2 Univers 100 mg 4-12 tablets by ity of tablet 00:00: mouth [place] 00 daily. Medical Branch buPROPion 0 Yes [id number] 150mg Take 1 U nivers XL 4-12 tablet by ity of (WELLBUTRIN 00:00: mouth [place] XL) 150 mg 00 daily. Medical 24 hr Branch tablet busPIRone 2021-0 Yes [id number] 30mg Take 1 Un matt 30 mg 4-12 tablet by ity of tablet 00:00: mouth 2 (two) Medical times Branch daily. SERTraline 0 Yes [id number] 200mg Take 2 Univers 100 mg 4-12 tablets by ity of tablet 00:00: mouth [place] 00 daily. Medical Branch buPROPion 0 Yes [id number] 150mg Take 1 U nivers XL 4-12 tablet by ity of (WELLBUTRIN 00:00: mouth [place] XL) 150 mg 00 daily. Medical 24 hr Branch tablet busPIRone 2021-0 Yes [id number] 30mg Take 1 Un matt 30 mg 4-12 tablet by ity of tablet 00:00: mouth 2 00 (two) Medical times Branch daily. SERTraline 2021-0 Yes [id number] 200mg Take 2 Univers 100 mg 4-12 tablets by ity of tablet 00:00: mouth [place] 00 daily. Medical Branch buPROPion 2021-0 Yes [id number] 150mg Take 1 U nivers XL 4-12 tablet by ity of (WELLBUTRIN 00:00: mouth [place] XL) 150 mg 00 daily. Medical 24 hr Branch tablet busPIRone 2021-0 Yes [id number] 30mg Take 1 Un matt 30 mg 4-12 tablet by ity of tablet 00:00: mouth 2 00 (two) Medical times Branch daily. SERTraline 2021-0 Yes [id number] 200mg Take 2 Univers 100 mg 4-12 tablets by ity of tablet 00:00: mouth [place] 00 daily. Medical Branch buPROPion 2021-0 Yes [id number] 150mg Take 1 U nivers XL 4-12 tablet by ity of (WELLBUTRIN 00:00: mouth [place] XL) 150 mg 00 daily. Medical 24 hr Branch tablet busPIRone 2021-0 Yes [id number] 30mg Take 1 Un matt 30 mg 4-12 tablet by ity of tablet 00:00: mouth 2 [place] 00 (two) Medical times Branch daily. SERTraline 2021-0 Yes [id number] 200mg Take 2 Univers 100 mg 4-12 tablets by ity of tablet 00:00: mouth [place] 00 daily. Medical Branch buPROPion 2021-0 Yes [id number] 150mg Take 1 U nivers XL 4-12 tablet by ity of (WELLBUTRIN 00:00: mouth [place] XL) 150 mg 00 daily. Medical 24 hr Branch tablet busPIRone 2021-0 Yes [id number] 30mg Take 1 Un matt 30 mg 4-12 tablet by ity of tablet 00:00: mouth 2 [place] (two) Medical times Branch daily. SERTraline 2021-0 Yes [id number] 200mg Take 2 [facility] 100 mg 4-12 tablets by ity of tablet 00:00: mouth [place] 00 daily. Medical Branch buPROPion 2021-0 Yes [id number] 150mg Take 1 U nivers XL 4-12 tablet by ity of (WELLBUTRIN 00:00: mouth [place] XL) 150 mg 00 daily. Medical 24 hr Branch tablet busPIRone 2021-0 Yes [id number] 30mg Take 1 Un matt 30 mg 4-12 tablet by ity of tablet 00:00: mouth 2 [place] 00 (two) Medical times Branch daily. SERTraline 2021-0 Yes [id number] 200mg Take 2 Univers 100 mg 4-12 tablets by ity of tablet 00:00: mouth [place] 00 daily. Medical Branch buPROPion 2021-0 Yes [id number] 150mg Take 1 U nivers XL 4-12 tablet by ity of (WELLBUTRIN 00:00: mouth [place] XL) 150 mg 00 daily. Medical 24 hr Branch tablet busPIRone 2021-0 Yes [id number] 30mg Take 1 Un matt 30 mg 4-12 tablet by ity of tablet 00:00: mouth 2 [place] 00 (two) Medical times Branch daily. SERTraline 2021-0 Yes [id number] 200mg Take 2 Univers 100 mg 4-12 tablets by ity of tablet 00:00: mouth [place] 00 daily. Medical Branch buPROPion 2021-0 Yes [id number] 150mg Take 1 U nivers XL 4-12 tablet by ity of (WELLBUTRIN 00:00: mouth [place] XL) 150 mg 00 daily. Medical 24 hr Branch tablet busPIRone 2021-0 Yes [id number] 30mg Take 1 Un matt 30 mg 4-12 tablet by ity of tablet 00:00: mouth 2 [place] 00 (two) Medical times Branch daily. SERTraline 2021-0 Yes [id number] 200mg Take 2 Univers 100 mg 4-12 tablets by ity of tablet 00:00: mouth [place] 00 daily. Medical Branch buPROPion 2021-0 Yes [id number] 150mg Take 1 U nivers XL 4-12 tablet by ity of (WELLBUTRIN 00:00: mouth [place] XL) 150 mg 00 daily. Medical 24 hr Branch tablet busPIRone 2021-0 Yes [id number] 30mg Take 1 Un matt 30 mg 4-12 tablet by ity of tablet 00:00: mouth 2 00 (two) Medical times Branch daily. SERTraline 2021-0 Yes [id number] 200mg Take 2 Univers 100 mg 4-12 tablets by ity of tablet 00:00: mouth [place] 00 daily. Medical Branch buPROPion 2021-0 Yes [id number] 150mg Take 1 U nivers XL 4-12 tablet by ity of (WELLBUTRIN 00:00: mouth [place] XL) 150 mg 00 daily. Medical 24 hr Branch tablet busPIRone 2021-0 Yes [id number] 30mg Take 1 Un matt 30 mg 4-12 tablet by ity of tablet 00:00: mouth 2 [place] 00 (two) Medical times Branch daily. SERTraline 2021-0 Yes [id number] 200mg Take 2 Univers 100 mg 4-12 tablets by ity of tablet 00:00: mouth [place] 00 daily. Medical Branch buPROPion 2021-0 Yes [id number] 150mg Take 1 U nivers XL 4-12 tablet by ity of (WELLBUTRIN 00:00: mouth [place] XL) 150 mg 00 daily. Medical 24 hr Branch tablet busPIRone 2021-0 Yes [id number] 30mg Take 1 Un matt 30 mg 4-12 tablet by ity of tablet 00:00: mouth 2 [place] 00 (two) Medical times Branch daily. SERTraline 2021-0 Yes [id number] 200mg Take 2 Univers 100 mg 4-12 tablets by ity of tablet 00:00: mouth [place] 00 daily. Medical Branch buPROPion 2021-0 Yes [id number] 150mg Take 1 U nivers XL 4-12 tablet by ity of (WELLBUTRIN 00:00: mouth [place] XL) 150 mg 00 daily. Medical 24 hr Branch tablet busPIRone 2021-0 Yes [id number] 30mg Take 1 Un matt 30 mg 4-12 tablet by ity of tablet 00:00: mouth 2 [place] 00 (two) Medical times Branch daily. SERTraline 0 Yes [id number] 200mg Take 2 Univers 100 mg 4-12 tablets by ity of tablet 00:00: mouth [place] 00 daily. Medical Branch buPROPion 2021-0 Yes [id number] 150mg Take 1 U nivers XL 4-12 tablet by ity of (WELLBUTRIN 00:00: mouth [place] XL) 150 mg 00 daily. Medical 24 hr Branch tablet busPIRone 2021-0 Yes [id number] 30mg Take 1 Un matt 30 mg 4-12 tablet by ity of tablet 00:00: mouth 2 [place] 00 (two) Medical times Branch daily. SERTraline 2021-0 Yes [id number] 200mg Take 2 Univers 100 mg 4-12 tablets by ity of tablet 00:00: mouth [place] 00 daily. Medical Branch buPROPion 2021-0 Yes [id number] 150mg Take 1 U nivers XL 4-12 tablet by ity of (WELLBUTRIN 00:00: mouth [place] XL) 150 mg 00 daily. Medical 24 hr Branch tablet busPIRone 2021-0 Yes [id number] 30mg Take 1 Un matt 30 mg 4-12 tablet by ity of tablet 00:00: mouth 2 [place] 00 (two) Medical times Branch daily. SERTraline 2021-0 Yes [id number] 200mg Take 2 Univers 100 mg 4-12 tablets by ity of tablet 00:00: mouth [place] 00 daily. Medical Branch raltegravir 2022-0 Yes [id number] 400mg Take 1 Univers (ISENTRESS) 3-28 tablet by ity of 400 mg 00:00: mouth 2 [place] tablet 00 (two) Medical times Branch daily. raltegravir 2-0 Yes [id number] 400mg Take 1 Univers (ISENTRESS) 3-28 tablet by ity of 400 mg 00:00: mouth 2 [place] tablet 00 (two) Medical times Branch daily. raltegravir 2-0 Yes [id number] 400mg Take 1 Univers (ISENTRESS) 3-28 tablet by ity of 400 mg 00:00: mouth 2 [place] tablet 00 (two) Medical times Branch daily. raltegravir 2021-0 Yes [id number] 400mg Take 1 Univers (ISENTRESS) 3-28 tablet by ity of 400 mg 00:00: mouth 2 [place] tablet 00 (two) Medical times Branch daily. raltegravir 2021-0 Yes [id number] 400mg Take 1 Univers (ISENTRESS) 3-28 tablet by ity of 400 mg 00:00: mouth 2 [place] tablet 00 (two) Medical times Branch daily. raltegravir 2021-0 Yes [id number] 400mg Take 1 Univers (ISENTRESS) 3-28 tablet by ity of 400 mg 00:00: mouth 2 [place] tablet 00 (two) Medical times Branch daily. raltegravir 2021-0 Yes [id number] 400mg Take 1 Univers (ISENTRESS) 3-28 tablet by ity of 400 mg 00:00: mouth 2 [place] tablet 00 (two) Medical times Branch daily. raltegravir 2-0 Yes [id number] 400mg Take 1 Univers (ISENTRESS) 3-28 tablet by ity of 400 mg 00:00: mouth 2 [place] tablet 00 (two) Medical times Branch daily. raltegravir 2-0 Yes [id number] 400mg Take 1 Univers (ISENTRESS) 3-28 tablet by ity of 400 mg 00:00: mouth 2 [place] tablet 00 (two) Medical times Branch daily. raltegravir 2-0 Yes [id number] 400mg Take 1 Univers (ISENTRESS) 3-28 tablet by ity of 400 mg 00:00: mouth 2 [place] tablet 00 (two) Medical times Branch daily. raltegravir 2-0 Yes [id number] 400mg Take 1 Univers (ISENTRESS) 3-28 tablet by ity of 400 mg 00:00: mouth 2 [place] tablet 00 (two) Medical times Branch daily. raltegravir 2021-0 Yes [id number] 400mg Take 1 Univers (ISENTRESS) 3-28 tablet by ity of 400 mg 00:00: mouth 2 [place] tablet 00 (two) Medical times Branch daily. raltegravir 2021-0 Yes [id number] 400mg Take 1 Univers (ISENTRESS) 3-28 tablet by ity of 400 mg 00:00: mouth 2 [place] tablet 00 (two) Medical times Branch daily. raltegravir 2021-0 Yes [id number] 400mg Take 1 Univers (ISENTRESS) 3-28 tablet by ity of 400 mg 00:00: mouth 2 [place] tablet 00 (two) Medical times Branch daily. raltegravir 2021-0 Yes [id number] 400mg Take 1 Univers (ISENTRESS) 3-28 tablet by ity of 400 mg 00:00: mouth 2 [place] tablet 00 (two) Medical times Branch daily. raltegravir 2021-0 Yes [id number] 400mg Take 1 Univers (ISENTRESS) 3-28 tablet by ity of 400 mg 00:00: mouth 2 [place] tablet 00 (two) Medical times Branch daily. raltegravir 2021-0 Yes [id number] 400mg Take 1 Univers (ISENTRESS) 3-28 tablet by ity of 400 mg 00:00: mouth 2 [place] tablet 00 (two) Medical times Branch daily. raltegravir 2021-0 Yes [id number] 400mg Take 1 Univers (ISENTRESS) 3-28 tablet by ity of 400 mg 00:00: mouth 2 [place] tablet 00 (two) Medical times Branch daily. LORazepam 1 2021-0 2021- No [id number] 1mg Take 1 Univers mg tablet 3-21 [...] times a tablet day. emtricitabi 202- No [id number] Take one [facility] ne-tenofovi -20 09-12 po daily ity of r alafen 00:00: 00:00 [place] (DESCOVY) 00 :00 Medical tablet Branch metoprolol Yes [id number] Take 1 [facility] tartrate 7-26 tablet Health (Lopressor) 00:00: (100 mg 100 MG 00 total) by tablet mouth 2 (two) times a day AND 0.5 tablets (50 mg total) every night. metoprolol Yes [id number] Take 1 [place] tartrate 7-26 tablet Health [...] (affected area in groin) hydrALAZINE Yes 50mg Q.[id number] Take 50 mg [facility] (APRESOLINE 7-19 [id number] [facility] mouth [facility] ) 50 MG [...] (affected area in groin) hydrALAZINE Yes 50mg Q.[id number] Take 50 mg [facility] (APRESOLINE 7-[id number] mouth [facility] ) 50 MG [...] (affected area in groin) hydrALAZINE Yes 50mg Q.[id number] Take 50 mg [facility] (APRESOLINE 7-[id number] mouth [facility] ) 50 MG [...] area in groin) hydrALAZINE 0 Yes 50mg Q.[id number] Take 50 mg [facility] (APRESOLINE 7-19 [id number] [facility] mouth [facility] ) 50 MG [...] area in groin) hydrALAZINE 0 Yes 50mg Q.[id number] Take 50 mg [facility] (APRESOLINE 7-[id number] mouth [facility] ) 50 MG [...] (affected area in groin) hydrALAZINE Yes 50mg Q.[id number] Take 50 mg [facility] (APRESOLINE 7-[id number] mouth [facility] [address] ) 50 MG [...] (affected area in groin) hydrALAZINE Yes 50mg Q.[id number] Take 50 mg [facility] (APRESOLINE 7-19 [id number] [address] mouth [facility] ) 50 MG [...] area in groin) hydrALAZINE 0 Yes 50mg Q.[id number] Take 50 mg [facility] (APRESOLINE 7-19 [id number] mouth [facility] ) 50 MG [...] (affected area in groin) hydrALAZINE Yes 50mg Q.[id number] Take 50 mg [facility] (APRESOLINE 7-19 [id number] mouth [facility] ) 50 MG [...] (affected area in groin) hydrALAZINE Yes 50mg Q.[id number] Take 50 mg [facility] (APRESOLINE 7-[id number] mouth [facility] ) 50 MG [...] area in groin) hydrALAZINE 0 Yes 50mg Q.[id number] Take 50 mg [facility] (APRESOLINE 7-[id number] mouth [facility] ) 50 MG [...] (affected area in groin) hydrALAZINE Yes 50mg Q.[id number] Take 50 mg [facility] (APRESOLINE 7-[id number] mouth [facility] [address] ) 50 MG [...] (affected area in groin) hydrALAZINE Yes 50mg Q.[id number] Take 50 mg [facility] (APRESOLINE 7-[id number] mouth [facility] ) 50 MG [...] (affected area in groin) hydrALAZINE Yes 50mg Q.[id number] Take 50 mg [facility] (APRESOLINE 7-[id number] mouth [facility] ) 50 MG [...] area in groin) hydrALAZINE 0 Yes 50mg Q.[id number] Take 50 mg [facility] (APRESOLINE 7-19 [id number] mouth [facility] ) 50 MG [...] (affected area in groin) hydrALAZINE Yes 50mg Q.[id number] Take 50 mg [facility] (APRESOLINE 7-[id number] mouth [facility] [address] ) 50 MG [...] area in groin) hydrALAZINE 0 Yes 50mg Q.[id number] Take 50 mg [facility] (APRESOLINE 7-[id number] mouth [address] ) 50 MG [...] area in groin) hydrALAZINE 0 Yes 50mg Q.[id number] Take 50 mg [facility] (APRESOLINE 7-19 [id number] mouth [facility] ) 50 MG [...] (affected area in groin) hydrALAZINE Yes 50mg Q.[id number] Take 50 mg [facility] (APRESOLINE 7-[id number] mouth [facility] [address] ) 50 MG [...] area in groin) hydrALAZINE 0 Yes 50mg Q.[id number] Take 50 mg [facility] (APRESOLINE 7-[id number] mouth [facility] ) 50 MG [...] area in groin) hydrALAZINE 2020-0 Yes 50mg Q.[id number] Take 50 mg [facility] (APRESOLINE 7-[id number] mouth [facility] ) 50 MG [...] (affected area in groin) hydrALAZINE Yes 50mg Q.[id number] Take 50 mg [facility] (APRESOLINE 7-19 [id number] mouth [facility] ) 50 MG [...] (affected area in groin) hydrALAZINE Yes 50mg Q.[id number] Take 50 mg [facility] (APRESOLINE 7-[id number] mouth [facility] [address] ) 50 MG [...] area in groin) hydrALAZINE 0 Yes 50mg Q.[id number] Take 50 mg [facility] (APRESOLINE 7-[id number] mouth [facility] ) 50 MG [...] (affected area in groin) hydrALAZINE Yes 50mg Q.[id number] Take 50 mg [facility] (APRESOLINE 7-[id number] mouth [facility] ) 50 MG [...] (affected area in groin) hydrALAZINE Yes 50mg Q.[id number] Take 50 mg [facility] (APRESOLINE 7-[id number] mouth [address] ) 50 MG [...] area in groin) hydrALAZINE 0 Yes 50mg Q.[id number] Take 50 mg [facility] (APRESOLINE 7-[id number] mouth [facility] [address] ) 50 MG [...] (affected area in groin) hydrALAZINE Yes 50mg Q.[id number] Take 50 mg [facility] (APRESOLINE 7-[id number] mouth [address] ) 50 MG [...] (affected area in groin) hydrALAZINE Yes 50mg Q.[id number] Take 50 mg [facility] (APRESOLINE 7-[id number] mouth [facility] ) 50 MG [...] area in groin) hydrALAZINE 0 Yes 50mg Q.[id number] Take 50 mg [facility] (APRESOLINE 7-[id number] mouth [address] ) 50 MG [...] area in groin) hydrALAZINE 0 Yes 50mg Q.[id number] Take 50 mg [facility] (APRESOLINE 7-[id number] mouth [address] ) 50 MG [...] (affected area in groin) hydrALAZINE Yes 50mg Q.[id number] Take 50 mg [facility] (APRESOLINE 7-[id number] mouth [facility] [address] ) 50 MG [...] (affected area in groin) hydrALAZINE Yes 50mg Q.[id number] Take 50 mg [facility] (APRESOLINE 7-19 [id number] mouth [facility] ) 50 MG [...] area in groin) hydrALAZINE 2021-0 Yes 50mg Q.[id number] Take 50 mg [facility] (APRESOLINE 7-[id number] mouth [address] ) 50 MG [...] (affected area in groin) hydrALAZINE Yes 50mg Q.[id number] Take 50 mg [facility] (APRESOLINE 7-[id number] mouth [address] ) 50 MG [...] (affected area in groin) hydrALAZINE Yes 50mg Q.[id number] Take 50 mg [facility] (APRESOLINE 7-[id number] mouth [address] ) 50 MG [...] area in groin) hydrALAZINE 0 Yes 50mg Q.[id number] Take 50 mg [facility] (APRESOLINE 7-[id number] mouth [address] ) 50 MG [...] (affected area in groin) hydrALAZINE Yes 50mg Q.[id number] Take 50 mg [facility] (APRESOLINE 7-[id number] mouth [address] ) 50 MG [...] (affected area in groin) hydrALAZINE Yes 50mg Q.[id number] Take 50 mg [facility] (APRESOLINE 7-[id number] mouth [address] ) 50 MG [...] area in groin) hydrALAZINE 0 Yes 50mg Q.[id number] Take 50 mg [facility] (APRESOLINE 7-[id number] mouth [address] ) 50 MG [...] [facility] tablet 25 l nystatin-tr 2020-0 Yes [id number] Apply to [facility] 7- area(s) 3 ity of cream 00:00: (three) [place] 00 times Medical daily. Branch nystatin-tr 2020-0 Yes [id number] Apply to [facility] 7-06 area(s) 3 ity of cream 00:00: (three) [place] 00 times Medical daily. Branch nystatin-tr 2021-0 Yes [id number] Apply to [facility] iamcinolone 7-06 area(s) 3 ity of cream 00:00: (three) [place] 00 times Medical daily. Branch nystatin-tr 2021-0 Yes [id number] Apply to [facility] iamcinolone 7-06 area(s) 3 ity of cream 00:00: (three) [place] 00 times Medical daily. Branch nystatin-tr 2021-0 Yes [id number] Apply to [facility] iamcinolone 7-06 area(s) 3 ity of cream 00:00: (three) [place] 00 times Medical daily. Branch nystatin-tr 2021-0 Yes [id number] Apply to [facility] iamcinolone 7-06 area(s) 3 ity of cream 00:00: (three) [place] 00 times Medical daily. Branch nystatin-tr 2021-0 Yes [id number] Apply to [facility] iamcinolone 7-06 area(s) 3 ity of cream 00:00: (three) [place] 00 times Medical daily. Branch nystatin-tr 2021-0 Yes [id number] Apply to [facility] iamcinolone 7-06 area(s) 3 ity of cream 00:00: (three) [place] 00 times Medical daily. Branch nystatin-tr 2021-0 Yes [id number] Apply to [facility] iamcinolone 7-06 area(s) 3 ity of cream 00:00: (three) [place] 00 times Medical daily. Branch nystatin-tr 2021-0 Yes [id number] Apply to [facility] iamcinolone 7-06 area(s) 3 ity of cream 00:00: (three) [place] 00 times Medical daily. Branch nystatin-tr 2021-0 Yes [id number] Apply to [facility] iamcinolone 7-06 area(s) 3 ity of cream 00:00: (three) [place] 00 times Medical daily. Branch nystatin-tr 2021-0 Yes [id number] Apply to [facility] iamcinolone 7-06 area(s) 3 ity of cream 00:00: (three) [place] 00 times Medical daily. Branch nystatin-tr 2021-0 Yes [id number] Apply to [facility] iamcinolone 7-06 area(s) 3 ity of cream 00:00: (three) [place] 00 times Medical daily. Branch nystatin-tr 2021-0 Yes [id number] Apply to [facility] iainolone 7-06 area(s) 3 ity of cream 00:00: (three) [place] 00 times Medical daily. Branch nystatin-tr 2020-0 Yes [id number] Apply to [facility] iamcinolone 7-06 area(s) 3 ity of cream 00:00: (three) [place] 00 times Medical daily. Branch nystatin-tr 2020-0 Yes [id number] Apply to [facility] iamcinolone 7-06 area(s) 3 ity of cream 00:00: (three) [place] 00 times Medical daily. Branch nystatin-tr 2020-0 Yes [id number] Apply to [facility] iamcinolone 7-06 area(s) 3 ity of cream 00:00: (three) [place] 00 times Medical daily. Branch nystatin-tr 2020-0 Yes [id number] Apply to [facility] iainolone 7-06 area(s) 3 ity of cream 00:00: (three) [place] 00 times Medical daily. Branch budesonide- 2020-0 2020- No 1{puff} QD Inhale 1 [facility] formoteroL 6-25 06-[address] (SYMBICORT) 14:37: 00:00 morning. H [facility]sp[facility] 160-4.5 02 :00 l mcg/actuati on inhaler hydrALAZINE Yes [id number] 50mg [id number] Take 1 [place] (Apresoline 6-11 [id number] tablet (50 Health ) 50 MG 00:00: 3D mg total) tablet 00 by mouth 3 (three) times a day. hydrALAZINE 0 Yes [id number] 50mg Q.[id number] Take 1 [place] (Apresoline 6-11 [id number] tablet (50 Health ) 50 MG 00:00: [...] % 00:00: ointment 00 nystatin 2020- No [id number] Q.25D Take 5 mL [facility] (MYCOSTATIN 10-06 [...] ia 4-10 (Same as: l 14:00: Norvasc) [place] 00 emtricitabi No Notes: Caesar lisa ne 200 MG / 4-10 (Same as: l tenofovir 14:00: Descovy) Herm ariel alafenamide 00 Non-formul 25 MG Oral nancy Tablet [Descovy] pantoprazol No Notes: Caesar lisa e 4-10 Tablet l 14:00: should not Marty be chewed or crushed. (Same as: Protonix) Amiodarone No Notes: Memor ia 4-10 (Same as: l 14:00: Cordarone) [place] Amlodipine No Notes: Memor ia 4-10 (Same as: l 14:00: Norvasc) [place] emtricitabi No Notes: Caesar lisa ne 200 MG / 4-10 (Same as: l tenofovir 14:00: Descovy) Herm ariel alafenamide 00 Non-formul 25 MG Oral nancy Tablet [Descovy] Sertraline No Notes: Memor ia 4-10 (Same as: l 14:00: Zoloft) [place] Sertraline No Notes: Memor ia 4-10 (Same as: l 14:00: Zoloft) [place] pantoprazol No Notes: Caesar lisa e 4-10 Tablet l 14:00: should not [place] 00 be chewed or crushed. (Same as: Protonix) Amiodarone No Notes: Memor ia 4-10 (Same as: l 14:00: Cordarone) [place] 00 Amlodipine No Notes: Memor ia 4-10 (Same as: l 14:00: Norvasc) [place] emtricitabi No Notes: Caesar lisa ne 200 MG / 4-10 (Same as: l tenofovir 14:00: Descovy) Herm ariel alafenamide 00 Non-formul 25 MG Oral nancy Tablet [Descovy] Sertraline No Notes: Memor ia 4-10 (Same as: l 14:00: Zoloft) [place] 00 pantoprazol No Notes: Caesar lisa e 4-10 Tablet l 14:00: should not [place] 00 be chewed or crushed. (Same as: Protonix) Amiodarone No Notes: Memor ia 4-10 (Same as: l 14:00: Cordarone) [place] Amlodipine No Notes: Memor ia 4-10 (Same as: l 14:00: Norvasc) [place] emtricitabi No Notes: Caesar lisa ne 200 MG / 4-10 (Same as: l tenofovir 14:00: Descovy) Herm ariel alafenamide 00 Non-formul 25 MG Oral nancy Tablet [Descovy] Sertraline No Notes: Memor ia 4-10 (Same as: l 14:00: Zoloft) [place] 00 pantoprazol No Notes: Caesar lisa e 4-10 Tablet l 14:00: should not [place] 00 be chewed or crushed. (Same as: Protonix) Amiodarone No Notes: Memor ia 4-10 (Same as: l 14:00: Cordarone) [place] Amlodipine No Notes: Memor ia 4-10 (Same as: l 14:00: Norvasc) [place] 00 emtricitabi No Notes: Caesar lias ne 200 MG / 4-10 (Same as: l tenofovir 14:00: Descovy) Herm ariel alafenamide 00 Non-formul 25 MG Oral nancy Tablet [Descovy] Sertraline No Notes: Memor ia 4-10 (Same as: l 14:00: Zoloft) [place] 00 pantoprazol No Notes: Caesar lisa e 4-10 Tablet l 14:00: should not [place] 00 be chewed or crushed. (Same as: [...] e 4-10 Tablet l 14:00: should not [place] 00 be chewed or crushed. (Same as: Protonix) Amiodarone No Notes: Memor ia 4-10 (Same as: l 14:00: Cordarone) [place] 00 Sucralfate No Notes: May M emoria [...] M emoria 4-10 interfere l 02:00: w/enteral [place] 00 feeds - Take 1 hr before [...] Memoria 4-10 Same as: l 02:00: Eliquis [place] 00 Hydralazine No Notes: Caesar lisa Hydrochlori 4-10 (Same as: l de 50 MG 02:00: Apresoline Her mitchell Oral Tablet 00 ) May interfere w/enteral feedings Take With Food Sucralfate No Notes: May M emoria 4-10 interfere l 02:00: w/enteral [place] 00 feeds - Take 1 hr before [...] M emoria 4-10 interfere l 02:00: w/enteral [place] 00 feeds - Take 1 hr before [...] Memoria 4-10 Same as: l 02:00: Eliquis [place] 00 Hydralazine No Notes: Caesar lisa Hydrochlori 4-10 (Same as: l de 50 MG 02:00: Apresoline Her mitchell Oral Tablet 00 ) May interfere w/enteral feedings Take With Food Sucralfate No Notes: May M emoria 4-10 interfere l 02:00: w/enteral [place] 00 feeds - Take 1 hr before [...] Memoria 4-10 Same as: l 02:00: Eliquis [place] Hydralazine No Notes: Caesar lisa Hydrochlori 4-10 [...] not exceed l #3 00:12: 4gm/day of [place] acetaminop hen. (Same as: Tylenol with Codeine # 3) acetaminoph No Notes: Do M emoria en-codeine 4-10 not exceed l #3 00:12: 4gm/day of [place] acetaminop hen. (Same as: Tylenol with Codeine # 3) acetaminoph No Notes: Do M emoria en-codeine 4-10 not exceed l #3 00:12: 4gm/day of [place] acetaminop hen. (Same as: Tylenol with Codeine # 3) acetaminoph No Notes: Do M emoria en-codeine 4-10 not exceed l #3 00:12: 4gm/day of [place] acetaminop hen. (Same as: Tylenol with Codeine # 3) Buspirone 2021-0 No Notes: Memori a 08-29 (Same As: l 22:00: BuSpar) Lisinopril 0 No 40 mg, 1 Mem oria -09 tab, l 22:00: Route: PO, [place] Drug form: TAB, BID, Dosing Weight 97.273, kg, Start date: 08/29/20 17:00:00 CDT, Duration: 30 day, Stop date: 09/28/20 9:00:00 CDT metoprolol 2020-0 No 100 mg, 1 Me moria tartrate -09 tab, l 22:00: Route: PO, [place] 00 Drug form: TAB, BID, Dosing Weight 97.273, kg, Start date: 08/29/20 17:00:00 CDT, Duration: 30 day, Stop date: 09/28/20 9:00:00 CDT Raltegravir 2020-0 No 400 mg, 1 M emoria 400 MG Oral - tab, l Tablet 22:00: Route: [facility], [place] form: TAB, BID, Dosing Weight 97.273, kg, Start date: 08/29/20 17:00:00 CDT, Duration: 30 day, Stop date: 09/28/20 9:00:00 CDT, 0 Buspirone 2020-0 No Notes: Memori a 08-29 (Same As: l 22:00: BuSpar) Lisinopril 0 No 40 mg, 1 Mem oria 08-29 tab, l 22:00: Route: PO, Drug form: TAB, BID, Dosing Weight 97.273, kg, Start date: 08/29/20 17:00:00 CDT, Duration: 30 day, Stop date: 09/28/20 9:00:00 CDT metoprolol 2020-0 No 100 mg, 1 Me moria tartrate 4-09 tab, l 22:00: Route: PO, [place] 00 Drug form: TAB, BID, Dosing Weight [...] oria 4-09 tab, l 22:00: Route: PO, [place] 00 Drug form: TAB, BID, Dosing Weight 97.273, kg, Start date: 08/29/20 17:00:00 CDT, Duration: 30 day, Stop date: 09/28/20 9:00:00 CDT metoprolol 1-0 No 100 mg, 1 Me moria tartrate 4-09 tab, l 22:00: Route: PO, [place] 00 Drug form: TAB, BID, Dosing Weight [...] tartrate 4-09 tab, l 22:00: Route: PO, [place] 00 Drug form: TAB, BID, Dosing Weight [...] tartrate 4-09 tab, l 22:00: Route: PO, [place] 00 Drug form: TAB, BID, Dosing Weight [...] oria 4-09 tab, l 22:00: Route: PO, [place] 00 Drug form: TAB, BID, Dosing Weight [...] No Notes: Memori a 08-29 (Same As: mabel 22:00: Sybil) Lisinopril 1-0 No 40 mg, 1 Mem [...] Notes: Memoria 4-09 (Same l 17:07: as:MORPhin [place] 00 e Sulfate) Morphine No Notes: Memoria 4-09 (Same l 17:07: as:MORPhin [place] 00 e Sulfate) Morphine No Notes: Memoria 4-09 (Same l 17:07: as:MORPhin [place] 00 e Sulfate) Morphine No Notes: Memoria 4-09 (Same l 17:07: as:MORPhin [place] 00 e Sulfate) Morphine No Notes: Memoria 4-09 (Same l 17:07: as:MORPhin [place] 00 e Sulfate) Morphine No Notes: Memoria 4-09 (Same l 17:07: as:MORPhin [place] 00 e Sulfate) Morphine No Notes: Memoria 4-09 (Same l 17:07: as:MORPhin [place] 00 e Sulfate) buPROPion 2020- No 150 mg, 1 Mem oria 24 [...] 08-29 Drug form: l 15:40: INJ, ONCE, [place] Stop date: 08/29/20 10:40:00 CDT neostigmine 2020-0 [...] tab, PO, l oral 15:27: Daily, # [place] enteric 00 30 tab, 0 coated Refill(s), tablet Pharmacy: [facility] 149, 162.56, cm, 08/29/20 5:30:00 CDT, Height, 97.273, kg, 08/29/20 5:30:00 CDT, Weight pantoprazol 2020-0 Yes 40 mg = 1 M emoria e 40 mg 4-09 tab, PO, l oral 15:27: Daily, # [place] enteric 00 30 tab, 0 coated Refill(s), tablet [facility]acy: [facility] 149, 162.56, cm, 08/29/20 5:30:00 CDT, Height, 97.273, kg, 08/29/20 5:30:00 CDT, Weight pantoprazol 2021-0 Yes 40 mg = 1 M emoria e 40 mg 4-09 tab, PO, l oral 15:27: Daily, # [place] enteric 00 30 tab, 0 coated Refill(s), tablet [facility], 162.56, cm, 08/29/20 5:30:00 CDT, Height, 97.273, kg, 08/29/20 5:30:00 CDT, Weight pantoprazol 2021-0 Yes 40 mg = 1 M emoria e 40 mg 4-09 tab, PO, l oral 15:27: Daily, # [place] enteric 00 30 tab, 0 coated Refill(s), tablet [facility], 162.56, cm, 08/29/20 5:30:00 CDT, Height, 97.273, kg, 08/29/20 5:30:00 CDT, Weight pantoprazol 2021-0 Yes 40 mg = 1 M emoria e 40 mg 4-09 tab, PO, l oral 15:27: Daily, # [place] enteric 00 30 tab, 0 coated Refill(s), tablet [facility], 162.56, cm, 08/29/20 5:30:00 CDT, Height, 97.273, kg, 08/29/20 5:30:00 CDT, Weight pantoprazol 2021-0 Yes 40 mg = 1 M emoria e 40 mg 4-09 tab, PO, l oral 15:27: Daily, # [place] enteric 00 30 tab, 0 coated Refill(s), tablet [facility] 149, 162.56, cm, 08/29/20 5:30:00 CDT, Height, 97.273, kg, 08/29/20 5:30:00 CDT, Weight pantoprazol 2021-0 Yes 40 mg = 1 M emoria e 40 mg 4-09 tab, PO, l oral 15:27: Daily, # [place] enteric 00 30 tab, 0 coated Refill(s), tablet Pharmacy: [facility] 149, 162.56, cm, 08/29/20 5:30:00 [...] Skylar nn 00 tab, 0 Refill(s), Pharmacy: [facility] 149, 162.56, cm, 08/29/20 5:30:00 [...] Skylar nn 00 tab, 0 Refill(s), Pharmacy: [place] [id number], 162.56, cm, 08/29/20 5:30:00 CDT, Height, 97.273, kg, 08/29/20 5:30:00 CDT, Weight pantoprazol 2020-0 No 40 mg = 1 M emoria e 40 mg 4-09 tab, PO, l oral 15:26: Daily, # [place] enteric 00 30 tab, 0 coated Refill(s) tablet sucralfate 2020-0 Yes 1 gm = 1 Mem oria 1 g oral 4-09 tab, PO, l tablet 15:26: Q12H, # 28 Skylar nn 00 tab, 0 Refill(s), Pharmacy: [facility] 149, 162.56, cm, 08/29/20 5:30:00 CDT, Height, 97.273, kg, 08/29/20 5:30:00 CDT, Weight pantoprazol 2020-0 No 40 mg = 1 M emoria e 40 mg 4-09 tab, PO, l oral 15:26: Daily, # [place] enteric 00 30 tab, 0 coated Refill(s) tablet sucralfate 2020-0 Yes 1 gm = 1 Mem oria 1 g oral 4-09 tab, PO, l tablet 15:26: Q12H, # 28 Skylar nn 00 tab, 0 Refill(s), Pharmacy: [facility] 149, 162.56, cm, 08/29/20 5:30:00 [...] Skylar nn 00 tab, 0 Refill(s), Pharmacy: [facility] 149, 162.56, cm, 08/29/20 5:30:00 [...] Skylar nn 00 tab, 0 Refill(s), Pharmacy: [facility] 149, 162.56, cm, 08/29/20 5:30:00 [...] Skylar nn 00 tab, 0 Refill(s), Pharmacy: [facility] 149, 162.56, cm, 08/29/20 5:30:00 [...] 0.9% 4-09 (Same as: l 15:25: BD [place] 00 Posiflush) Saline No Notes: Memoria Flush 0.9% 4-09 (Same as: l 15:25: BD [place] 00 Posiflush) Lorazepam No Notes: Memori a 4-09 (Same as: l 15:25: Ativan) Lorazepam No Notes: Memori a 4-09 (Same as: l 15:25: Ativan) [place] Saline No Notes: Memoria Flush 0.9% 4-09 (Same as: l 15:25: BD [place] 00 Posiflush) Lorazepam No Notes: Memori a 4-09 (Same as: l 15:25: Ativan) [place] Saline No Notes: Memoria Flush 0.9% 4-09 (Same as: l 15:25: BD [place] 00 Posiflush) Lorazepam No Notes: Memori a 4-09 (Same as: l 15:25: Ativan) [place] 00 Saline No Notes: Memoria Flush 0.9% [...] Drug form: l mg + 15:00: INJ, [place] 00 Dosing Weight 97.3, kg, Start date: [...] 08-29 Drug form: l 14:18: INJ, ONCE, [place] 00 Stop date: 08/29/20 9:18:00 CDT heparin 2020-0 No Route: IV, Caesar lisa (ANES) 08-29 Drug form: l 14:18: INJ, ONCE, Stop date: 08/29/20 9:18:00 CDT heparin 2020-0 No Route: IV, Caesar lisa (ANES) 08-29 Drug form: l 14:18: INJ, ONCE, Stop date: 08/29/20 9:18:00 CDT Labetalol 2020-0 No 10 mg, Memori a 08-29 Route: l 14:01: IVP, [place] 00 Q5Min, Dosing Weight 97.273, kg, PRN [...] lisa 08-29 Route: l 14:01: IVP, PRN, [place] 00 Dosing Weight 97.273, kg, PRN Benzodiaze [...] ia 08-29 Route: l 14:01: IVP, ONCE, [place] 00 Dosing Weight 97.273, kg, PRN Nausea [...] 08-29 Route: PO, l 14:01: Drug form: [place] 00 TAB, ONCE, Dosing Weight 97.273, kg, [...] Memori a 08-29 Route: l 14:01: IVP, [place] 00 Q2MIN, Dosing Weight 97.273, kg, PRN Narcotic Reversal, Start date: 08/29/20 9:01:00 CDT, Duration: 8 doses or times, Stop date: Limited # of times Ondansetron 2020-0 No 4 mg, Memor ia 08-29 Route: l 14:01: IVP, ONCE, [place] 00 Dosing Weight 97.273, kg, PRN Nausea [...] 08-29 Route: PO, l 14:01: Drug form: [place] 00 TAB, ONCE, Dosing Weight 97.273, kg, [...] oria ne 08-29 Route: l 14:01: IVP, [place] 00 Q5Min, Dosing Weight 97.273, kg, PRN [...] ia 08-29 Route: l 14:01: IVP, ONCE, [place] 00 Dosing Weight 97.273, kg, PRN Nausea [...] 08-29 Route: PO, l 14:01: Drug form: [place] 00 TAB, ONCE, Dosing Weight 97.273, kg, [...] oria ne 08-29 Route: l 14:01: IVP, [place] 00 Q5Min, Dosing Weight 97.273, kg, PRN Pain Score 7-10, Start date: 08/29/20 9:01:00 CDT, Duration: 4 doses or times, Stop date: Limited # of times Labetalol 1-0 No 10 mg, Memori a 08-29 Route: l 14:01: IVP, [place] 00 Q5Min, Dosing Weight 97.273, kg, PRN [...] oria ne 08-29 Route: l 14:01: IVP, [place] 00 Q5Min, Dosing Weight 97.273, kg, PRN [...] Memori a 08-29 Route: l 14:01: IVP, [place] 00 Q2MIN, Dosing Weight 97.273, kg, PRN [...] ia 08-29 Route: l 14:01: IVP, ONCE, [place] 00 Dosing Weight 97.273, kg, PRN Nausea [...] lisa 08-29 Route: l 14:01: IVP, PRN, [place] 00 Dosing Weight 97.273, kg, PRN Benzodiaze [...] ia 08-29 Route: l 14:01: IVP, ONCE, [place] 00 Dosing Weight 97.273, kg, PRN Nausea & Vomiting, Start date: 08/29/20 9:01:00 CDT Labetalol 2020-0 No 10 mg, Memori a 08-29 Route: l 14:01: IVP, [place] 00 Q5Min, Dosing Weight 97.273, kg, PRN [...] oria ne 08-29 Route: l 14:01: IVP, [place] 00 Q5Min, Dosing Weight 97.273, kg, PRN [...] Drug form: l 10 13:15: INJ, Start [place] microgram date: 08/29/20 8:15:00 CDT, Stop date: [...] Drug form: l 10 13:15: INJ, Start [place] microgram 00 date: 08/29/20 8:15:00 CDT, Stop [...] 4-09 Total l 0.9% IV 12:30: Volume: [place] (ANES) 1000 00 1,000, mL Start date: 08/29/20 7:30:00 CDT, Stop date: 08/29/20 8:30:00 CDT Sodium 2021-0 No Route: IV, Memor ia Chloride 4-09 Total l 0.9% IV 12:30: Volume: [place] (ANES) 1000 00 1,000, mL Start date: 08/29/20 7:30:00 CDT, Stop date: 08/29/20 8:30:00 CDT Sodium 2021-0 No Route: IV, Memor ia Chloride 4-09 Total l 0.9% IV 12:30: Volume: [place] (ANES) 1000 00 1,000, mL Start date: [...] PO, l Hydrochlori 11:42: Q24H, # 30 [place] de 150 MG 00 tab, 0 Extended Refill(s) Release Tablet 24 HR Yes 150 mg = 1 Memori a Bupropion 4-09 tab, PO, l Hydrochlori 11:42: Q24H, # 30 [place] de 150 MG 00 tab, 0 Extended Refill(s) Release Tablet 24 HR Yes 150 mg = 1 Memori a Bupropion 4-09 tab, PO, l Hydrochlori 11:42: Q24H, # 30 [place] de 150 MG 00 tab, 0 Extended Refill(s) Release Tablet 24 HR Yes 150 mg = 1 Memori a Bupropion 4-09 tab, PO, l Hydrochlori 11:42: Q24H, # 30 [place] de 150 MG 00 tab, 0 Extended Refill(s) Release Tablet 24 HR Yes 150 mg = 1 Memori a Bupropion 4-09 tab, PO, l Hydrochlori 11:42: Q24H, # 30 [place] de 150 MG 00 tab, 0 Extended [...] - Q12H, tab, l Tablet 11:41: 0 [place] [Eliquis] 00 Refill(s), For Atrial Fibrilatio n apixaban 2020-0 Yes 5 mg, PO, Me moria MG Oral - Q12H, tab, l Tablet 11:41: 0 [place] [Eliquis] 00 Refill(s), For Atrial Fibrilatio n apixaban 5 2020-0 Yes 5 mg, PO, Me moria MG Oral 4- Q12H, tab, l Tablet 11:41: 0 [place] [Eliquis] 00 Refill(s), For Atrial Fibrilatio n [...] tab, PO, l tablet 11:38: Daily, # [place] 00 90 tab, 3 Refill(s) AMIODarone 2020-0 Yes 200 mg = 1 M emoria 200 mg oral 4-09 tab, PO, l tablet 11:38: Daily, # [place] 00 90 tab, 3 Refill(s) AMIODarone 2020-0 [...] tab, PO, l tablet 11:38: Daily, # [place] 00 90 tab, 3 Refill(s) AMIODarone 2020-0 Yes 200 mg = 1 M emoria 200 mg oral 4-09 tab, PO, l tablet 11:38: Daily, # [place] 00 90 tab, 3 Refill(s) normal 0 [...] l IV 1,000 mL 10:30: ml/hr, Herm arile 00 Infuse over: 10 hr, Route: IV, [...] [facility] Yes 400mg Q.5D Take 400 [...] [facility] 00 (two) l [facility]. [facility] Yes 400mg Q.5D Take 400 Met hodi 400 mg 3-[address] tablet 00:00: mouth 2 [facility]ospita 00 (two) l times a day. Immunizations Ordered Filled Immunization Date Status Comments [facility] e Immunization Name Name SARS-COV-2 [...] [place] 65[place] PFIZER COVID-19 2020-07-23 Completed [facility] MRNA VACCINATION 00:00:00 [facility] PFIZER COVID-19 2020-07-23 Completed [place] MRNA VACCINATION 00:00:00 [facility] PFIZER COVID-19 2020-07-23 Completed [place] MRNA VACCINATION 00:00:00 [facility] PFIZER COVID-19 2020-07-23 Completed [place] MRNA VACCINATION 00:00:00 [facility] PFIZER COVID-19 2020-07-23 Completed [place] MRNA VACCINATION 00:00:00 [facility] PFIZER COVID-19 2020-07-23 Completed [place] MRNA VACCINATION 00:00:00 [facility] PFIZER COVID-19 2020-07-23 Completed [place] MRNA VACCINATION 00:00:00 [facility] PFIZER COVID-19 2020-07-23 Completed [place] MRNA VACCINATION 00:00:00 [facility] PFIZER COVID-19 2020-07-23 Completed [place] MRNA VACCINATION 00:00:00 [facility] PFIZER COVID-19 2020-07-23 Completed [place] MRNA VACCINATION 00:00:00 [facility] PFIZER COVID-19 2020-07-23 Completed [place] MRNA VACCINATION 00:00:00 [facility] PFIZER COVID-19 2020-07-23 Completed [place] MRNA VACCINATION 00:00:00 [facility] PEG COVID-19 2020-07-23 Completed [place] MRNA VACCINATION 00:00:00 [facility] PEG COVID-19 2020-07-23 Completed [facility] MRNA VACCINATION 00:00:00 [facility] PFIZER COVID-19 2020-07-23 Completed [facility] MRNA VACCINATION 00:00:00 [facility] PFIZER COVID-19 2020-07-23 Completed [place] MRNA VACCINATION 00:00:00 [facility] PFIZER COVID-19 2020-07-23 Completed [facility] MRNA VACCINATION 00:00:00 [facility] PFIZER COVID-19 2020-07-23 Completed [facility] MRNA VACCINATION 00:00:00 [facility] PFIZER COVID-19 2020-07-23 Completed [facility] MRNA VACCINATION 00:00:00 [facility] PFIZER COVID-19 2020-07-23 Completed [facility] MRNA VACCINATION 00:00:00 [facility] PFIZER COVID-19 2020-07-23 Completed [facility] MRNA VACCINATION 00:00:00 [facility] PFIZER COVID-19 2020-07-23 Completed [facility] MRNA VACCINATION 00:00:00 [facility] PFIZER COVID-19 2020-07-23 Completed [facility] MRNA VACCINATION 00:00:00 [facility] PFIZER COVID-19 2020-07-23 Completed [facility] MRNA VACCINATION 00:00:00 [facility] PFIZER COVID-19 2020-07-23 Completed [facility] MRNA VACCINATION 00:00:00 [facility] PFIZER COVID-19 2020-07-23 Completed [facility] MRNA VACCINATION 00:00:00 [facility] PFIZER COVID-19 2020-07-23 Completed [facility] MRNA VACCINATION 00:00:00 [facility] PFIZER COVID-19 2020-07-23 Completed [facility] MRNA VACCINATION 00:00:00 [facility] PFIZER COVID-19 2020-07-23 Completed [facility] MRNA VACCINATION 00:00:00 [facility] PFIZER COVID-19 2020-07-23 Completed [facility] MRNA VACCINATION 00:00:00 [facility] PFIZER COVID-19 2020-07-23 Completed [facility] MRNA VACCINATION 00:00:00 [facility] PFIZER COVID-19 2020-07-23 Completed [facility] MRNA VACCINATION 00:00:00 [facility] PFIZER COVID-19 2020-07-23 Completed [facility] MRNA VACCINATION 00:00:00 [facility] PFIZER COVID-19 2020-07-23 Completed [facility] MRNA VACCINATION 00:00:00 [facility] PFIZER COVID-19 2020-07-23 Completed [facility] MRNA VACCINATION 00:00:00 [facility] PFIZER COVID-19 2020-07-23 Completed [facility] MRNA VACCINATION 00:00:00 [facility] PFIZER COVID-19 2020-07-23 Completed [facility] MRNA VACCINATION 00:00:00 [facility] PFIZER COVID-19 2020-07-23 Completed [facility] MRNA VACCINATION 00:00:00 [facility] PFIZER COVID-19 2020-07-23 Completed [facility] MRNA VACCINATION 00:00:00 [facility] SARS-COV-2 COVID-19 2020-07-23 Completed [facility]ive rsity of PFIZER VACCINE 00:00:00 [facility] SARS-COV-2 COVID-19 2020-07-23 Completed Unive rsity of PFIZER VACCINE 00:00:00 [facility] SARS-COV-2 COVID-19 2020-07-23 Completed Unive rsity of PFIZER VACCINE 00:00:00 [facility] SARS-COV-2 COVID-19 2020-07-23 Completed Unive rsity of PFIZER VACCINE 00:00:00 [facility] SARS-COV-2 COVID-19 2020-07-23 Completed Unive rsity of PFIZER VACCINE 00:00:00 [facility] SARS-COV-2 COVID-19 2020-07-23 Completed Unive rsity of PFIZER VACCINE 00:00:00 [facility] SARS-COV-2 COVID-19 2020-07-23 Completed Unive rsity of PFIZER VACCINE 00:00:00 [facility] SARS-COV-2 COVID-19 2020-07-23 Completed Unive rsity of PFIZER VACCINE 00:00:00 [facility] SARS-COV-2 COVID-19 2020-07-23 Completed Unive rsity of PFIZER VACCINE 00:00:00 [facility] SARS-COV-2 COVID-19 2020-07-23 Completed Unive rsity of PFIZER VACCINE 00:00:00 [facility] SARS-COV-2 COVID-19 2020-07-23 Completed Unive rsity of PFIZER VACCINE 00:00:00 [facility] SARS-COV-2 COVID-19 2020-07-23 Completed [facility] PFIZER VACCINE 00:00:00 [facility] SARS-COV-2 COVID-19 2020-07-23 Completed [facility] PFIZER VACCINE 00:00:00 [facility] SARS-COV-2 COVID-19 2020-07-23 Completed [facility] PFIZER VACCINE 00:00:00 [facility] PFIZER COVID-19 2020-07-23 Completed [facility] MRNA VACCINATION 00:00:00 [facility] PFIZER COVID-19 2020-07-02 Completed [facility] MRNA VACCINATION 00:00:00 [facility] PFIZER COVID-19 2020-07-02 Completed [facility] MRNA VACCINATION 00:00:00 [facility] PFIZER COVID-19 2020-07-02 Completed [facility] MRNA VACCINATION 00:00:00 [facility] PFIZER COVID-19 2020-07-02 Completed [facility] MRNA VACCINATION 00:00:00 [facility] PFIZER COVID-19 2020-07-02 Completed [facility] MRNA VACCINATION 00:00:00 [facility] PFIZER COVID-19 2020-07-02 Completed [facility] MRNA VACCINATION 00:00:00 [facility] PFIZER COVID-19 2020-07-02 Completed [facility] MRNA VACCINATION 00:00:00 [facility] PFIZER COVID-19 2020-07-02 Completed [facility] MRNA VACCINATION 00:00:00 [facility] PFIZER COVID-19 2020-07-02 Completed [facility] MRNA VACCINATION 00:00:00 [facility] PFIZER COVID-19 2020-07-02 Completed [facility] MRNA VACCINATION 00:00:00 [facility] PFIZER COVID-19 2020-07-02 Completed [facility] MRNA VACCINATION 00:00:00 [facility] PFIZER COVID-19 2020-07-02 Completed [facility] MRNA VACCINATION 00:00:00 [facility] PFIZER COVID-19 2020-07-02 Completed [facility] MRNA VACCINATION 00:00:00 [facility] PFIZER COVID-19 2020-07-02 Completed [facility] MRNA VACCINATION 00:00:00 [facility] PFIZER COVID-19 2020-07-02 Completed [facility]RNA VACCINATION 00:00:00 [facility] PFIZER COVID-19 2020-07-02 Completed [facility] VACCINATION 00:00:00 [facility] PFIZER COVID-19 2020-07-02 Completed [facility] VACCINATION 00:00:00 [facility] PFIZER COVID-19 2020-07-02 Completed [facility] VACCINATION 00:00:00 [facility] PFIZER COVID-19 2020-07-02 Completed [facility] VACCINATION 00:00:00 [facility] PFIZER COVID-19 2020-07-02 Completed [facility] VACCINATION 00:00:00 [facility] PFIZER COVID-19 2020-07-02 Completed [facility] VACCINATION 00:00:00 [facility] PFIZER COVID-19 2020-07-02 Completed [facility] VACCINATION 00:00:00 [facility] PFIZER COVID-19 2020-07-02 Completed [facility] VACCINATION 00:00:00 [facility] PFIZER COVID-19 2020-07-02 Completed [facility] VACCINATION 00:00:00 [facility] PFIZER COVID-19 2020-07-02 Completed [facility] VACCINATION 00:00:00 [facility] PFIZER COVID-19 2020-07-02 Completed [facility] VACCINATION 00:00:00 [facility] PFIZER COVID-19 2020-07-02 Completed [facility] VACCINATION 00:00:00 [facility] PFIZER COVID-19 2020-07-02 Completed [facility] VACCINATION 00:00:00 [facility] PFIZER COVID-19 2020-07-02 Completed [facility] VACCINATION 00:00:00 [facility] PFIZER COVID-19 2020-07-02 Completed [facility] VACCINATION 00:00:00 [facility] PFIZER COVID-19 2020-07-02 Completed [facility] VACCINATION 00:00:00 [facility] PFIZER COVID-19 2020-07-02 Completed [facility] VACCINATION 00:00:00 [facility] PFIZER COVID-19 2020-07-02 Completed [facility] VACCINATION 00:00:00 [facility] PFIZER COVID-19 2020-07-02 Completed [facility] VACCINATION 00:00:00 [facility] PFIZER COVID-19 2020-07-02 Completed [facility]ACC[facility] 00:00:00 [facility] PFIZER COVID-19 2020-07-02 Completed [facility] VACC[facility]ATION 00:00:00 [facility] PFIZER COVID-19 2020-07-02 Completed [facility] VACCINATION 00:00:00 [facility] PFIZER COVID-19 2020-07-02 Completed [facility] VACCINATION 00:00:00 [facility] PFIZER COVID-19 2020-07-02 Completed [facility] VACCINATION 00:00:00 [facility] SARS-COV-2 COVID-19 2020-07-02 Completed [facility] PFIZER VACCINE 00:00:00 [facility] SARS-COV-2 COVID-19 2020-07-02 Completed [facility] of PFIZER VACCINE 00:00:00 [facility] SARS-COV-2 COVID-19 2020-07-02 Completed [facility] of PFIZER VACCINE 00:00:00 [facility] SARS-COV-2 COVID-19 2020-07-02 Completed [facility] of PFIZER VACCINE 00:00:00 [facility] SARS-COV-2 COVID-19 2020-07-02 Completed [facility] of PFIZER VACCINE 00:00:00 [facility] SARS-COV-2 COVID-19 2020-07-02 Completed [facility] of PFIZER VACCINE 00:00:00 [facility] SARS-COV-2 COVID-19 2020-07-02 Completed [facility] of PFIZER VACCINE 00:00:00 [facility] SARS-COV-2 COVID-19 2020-07-02 Completed [facility] of PFIZER VACCINE 00:00:00 [facility] SARS-COV-2 COVID-19 2020-07-02 Completed [facility] of PFIZER VACCINE 00:00:00 [facility] SARS-COV-2 COVID-19 2020-07-02 Completed [facility] of PFIZER VACCINE 00:00:00 [facility] SARS-COV-2 COVID-19 2020-07-02 Completed [facility] of PFIZER VACCINE 00:00:00 [facility] SARS-COV-2 COVID-19 2020-07-02 Completed [facility] of PFIZER VACCINE 00:00:00 [facility] SARS-COV-2 COVID-19 2020-07-02 Completed [facility] of PFIZER VACCINE 00:00:00 [facility] SARS-COV-2 COVID-19 2020-07-02 Completed [facility] of PFIZER VACCINE 00:00:00 [facility] PFIZER COVID-19 2020-07-02 Completed [facility] VACCINATION 00:00:00 Hospital Influenza Virus 2017-03-08 Completed [facility] Vaccine 00:00:00 [facility] Influenza Virus 2017-03-08 Completed [facility] of Vaccine 00:00:00 [facility] Influenza Virus 2017-03-08 Completed [facility] of Vaccine 00:00:00 [facility] Influenza Virus 2017-03-08 Completed [facility] of Vaccine 00:00:00 [facility] Influenza Virus 2017-03-08 Completed [facility] of Vaccine 00:00:00 [facility] Influenza Virus 2017-03-08 Completed [facility] of Vaccine 00:00:00 [facility] Influenza Virus 2017-03-08 Completed [facility] of Vaccine 00:00:00 [facility] Influenza Virus 2017-03-08 Completed [facility] of Vaccine 00:00:00 [facility] Influenza Virus 2017-03-08 Completed [facility] of Vaccine 00:00:00 [facility] Influenza Virus 2017-03-08 Completed [facility] of Vaccine 00:00:00 [facility] Influenza Virus 2017-03-08 Completed [facility] of Vaccine 00:00:00 [facility] Influenza Virus 2017-03-08 Completed [facility] of Vaccine 00:00:00 [facility] Influenza Virus 2017-03-08 Completed [facility] of Vaccine 00:00:00 [facility] Influenza Virus 2017-03-08 Completed [facility] of Vaccine 00:00:00 [facility] Influenza Virus 2017-03-08 Completed [facility] of Vaccine 00:00:00 [facility] Influenza Virus 2017-03-08 Completed [facility] of Vaccine 00:00:00 [facility] Influenza Virus 2017-03-08 Completed [facility] of Vaccine 00:00:00 [facility] Influenza Virus 2017-03-08 Completed [facility] of Vaccine 00:00:00 [facility] Influenza Virus 2014-01-30 Completed [facility] of Vaccine (3+ yrs) 00:00:00 [facility] Pneumococcal 13 2014-01-30 Completed [facility] of Conjugate, PCV13 00:00:00 [facility] (Prevnar 13) [facility] Influenza Virus 2014-01-30 Completed [facility] Vaccine (3+ yrs) 00:00:00 [facility] Pneumococcal 13 2014-01-30 Completed [facility] of Conjugate, PCV13 00:00:00 [place] [facility] (Prevnar 13) [facility] Influenza Virus 2014-01-30 Completed [facility] of Vaccine (3+ yrs) 00:00:00 [facility] Pneumococcal 13 2014-01-30 Completed [facility] of Conjugate, PCV13 00:00:00 [facility] dical (Prevnar 13) Branch Influenza Virus 2014-01-30 Completed [facility] of Vaccine (3+ yrs) 00:00:00 [place] [facility] Pneumococcal 13 2014-01-30 Completed Universit [...] y of Vaccine (3+ yrs) 00:00:00 [place] [facility] Pneumococcal 13 2014-01-30 Completed [facility]it [facility] of Conjugate, PCV13 00:00:00 [facility] [place] d[facility] (Prevnar 13) Branch Influenza Virus 2014-01-30 Completed [facility] of Vaccine (3+ yrs) 00:00:00 [facility] Pneumococcal 13 2014-01-30 Completed [facility]it [facility] of Conjugate, PCV13 00:00:00 [place] [facility] (Prevnar 13) [facility] Influenza Virus 2014-01-30 Completed [facility] of Vaccine (3+ yrs) 00:00:00 [facility] [place] [facility] Pneumococcal 13 2014-01-30 Completed [facility] of Conjugate, PCV13 00:00:00 [place] [facility] (Prevnar 13) [facility] Influenza Virus 2014-01-30 Completed [facility] of Vaccine (3+ yrs) 00:00:00 [facility] [place] d[facility] Pneumococcal 13 2014-01-30 Completed [facility]it y of Conjugate, PCV13 00:00:00 [facility] [place] dical (Prevnar 13) Branch Influenza Virus 2014-01-30 Completed [facility] of Vaccine (3+ yrs) 00:00:00 [place] [facility] Pneumococcal 13 2014-01-30 Completed [facility] of Conjugate, PCV13 00:00:00 [place] [facility] (Prevnar 13) [facility] Influenza Virus 2014-01-30 Completed [facility] of Vaccine (3+ yrs) 00:00:00 [place] [facility] Pneumococcal 13 2014-01-30 Completed [facility] of Conjugate, PCV13 00:00:00 [place] [facility] (Prevnar 13) [facility] Influenza Virus 2014-01-30 Completed [facility] of Vaccine (3+ yrs) 00:00:00 [place] [facility] Pneumococcal 13 2014-01-30 Completed [facility] of Conjugate, PCV13 00:00:00 [place] [facility] (Prevnar 13) [facility] Influenza Virus 2014-01-30 [...] [facility]it y of Conjugate, PCV13 00:00:00 [place] [facility] (Prevnar 13) [facility] Influenza Virus 2014-01-30 [...] y of Vaccine 00:00:00 [facility] PPD (TB) 2012-02-16 Completed [facility] of 00:00:00 [facility] Pneumococcal 2012-02-16 Completed University o f Polysaccharide, 00:00:00 [place] [facility] PPSV23 (PNEUMOVAX) Branch Influenza Virus 2012-02-16 Completed [facility] of Vaccine 00:00:00 [facility] PPD (TB) 2012-02-16 Completed [facility] of 00:00:00 [facility] Pneumococcal 2012-02-16 Completed [facility] o f Polysaccharide, 00:00:00 [place] [facility] PPSV23 (PNEUMOVAX) Branch Influenza Virus 2012-02-16 Completed [facility] of Vaccine 00:00:00 [facility] PPD (TB) 2012-02-16 Completed [facility] of 00:00:00 [facility] Pneumococcal 2012-02-16 Completed [facility] o f Polysaccharide, 00:00:00 [place] [facility] PPSV23 (PNEUMOVAX) Branch Influenza Virus 2012-02-16 Completed [facility] of Vaccine 00:00:00 [facility] PPD (TB) 2012-02-16 Completed [facility] of 00:00:00 [facility] Pneumococcal 2012-02-16 Completed [facility] o f Polysaccharide, 00:00:00 [place] [facility] PPSV23 (PNEUMOVAX) Branch Influenza Virus 2012-02-16 Completed [facility] of Vaccine 00:00:00 [facility] PPD (TB) 2012-02-16 Completed [facility] of 00:00:00 [facility] Pneumococcal 2012-02-16 Completed [facility] o f Polysaccharide, 00:00:00 [place] [facility] PPSV23 (PNEUMOVAX) Branch Influenza Virus 2012-02-16 Completed [facility] of Vaccine 00:00:00 [facility] PPD (TB) 2012-02-16 Completed [facility] of 00:00:00 [facility] Pneumococcal 2012-02-16 Completed [facility] o f Polysaccharide, 00:00:00 [place] [facility] PPSV23 (PNEUMOVAX) Branch Influenza Virus 2012-02-16 Completed [facility] of Vaccine 00:00:00 [facility] PPD (TB) 2012-02-16 Completed [facility] of 00:00:00 [facility] Pneumococcal 2012-02-16 Completed [facility] o f Polysaccharide, 00:00:00 [place] [facility] PPSV23 (PNEUMOVAX) Branch Influenza Virus 2012-02-16 Completed [facility] of Vaccine 00:00:00 [facility] PPD (TB) 2012-02-16 Completed [facility] of 00:00:00 [facility] Pneumococcal 2012-02-16 Completed [facility] o f Polysaccharide, 00:00:00 [place] [facility] PPSV23 (PNEUMOVAX) Branch Influenza Virus 2012-02-16 Completed [facility] of Vaccine 00:00:00 [facility] PPD (TB) 2012-02-16 Completed [facility] of 00:00:00 [facility] Pneumococcal 2012-02-16 Completed [facility] o f Polysaccharide, 00:00:00 [place] [facility] PPSV23 (PNEUMOVAX) Branch Influenza Virus 2012-02-16 Completed [facility] of Vaccine 00:00:00 [facility] PPD (TB) 2012-02-16 Completed [facility] of 00:00:00 [facility] Pneumococcal 2012-02-16 Completed [facility] o f Polysaccharide, 00:00:00 [place] [facility] PPSV23 (PNEUMOVAX) Branch Influenza Virus 2012-02-16 Completed [facility] of Vaccine 00:00:00 [facility] PPD (TB) 2012-02-16 Completed [facility] of 00:00:00 [facility] Pneumococcal 2012-02-16 Completed [facility] o f Polysaccharide, 00:00:00 [place] [facility] PPSV23 (PNEUMOVAX) Branch Influenza Virus 2012-02-16 Completed [facility] of Vaccine 00:00:00 [facility] PPD (TB) 2012-02-16 Completed [facility] of 00:00:00 [facility] Pneumococcal 2012-02-16 Completed [facility] o f Polysaccharide, 00:00:00 [place] [facility] PPSV23 (PNEUMOVAX) Branch Influenza Virus 2012-02-16 Completed [facility] of Vaccine 00:00:00 [facility] PPD (TB) 2012-02-16 Completed [facility] of 00:00:00 [facility] Pneumococcal 2012-02-16 Completed [facility] o f Polysaccharide, 00:00:00 [place] [facility] PPSV23 (PNEUMOVAX) Branch Influenza Virus 2012-02-16 Completed [facility] of Vaccine 00:00:00 [facility] PPD (TB) 2012-02-16 Completed [facility] of 00:00:00 [facility] Pneumococcal 2012-02-16 Completed [facility] o f Polysaccharide, 00:00:00 [place] [facility] PPSV23 (PNEUMOVAX) Branch Influenza Virus 2012-02-16 Completed [facility] of Vaccine 00:00:00 [facility] PPD (TB) 2012-02-16 Completed [facility] of 00:00:00 [facility] Pneumococcal 2012-02-16 Completed [facility] o f Polysaccharide, 00:00:00 [place] [facility] PPSV23 (PNEUMOVAX) Branch Influenza Virus 2012-02-16 Completed [facility] of Vaccine 00:00:00 [facility] PPD (TB) 2012-02-16 Completed [facility] of 00:00:00 [facility] Pneumococcal 2012-02-16 Completed [facility] o f Polysaccharide, 00:00:00 [place] [facility] PPSV23 (PNEUMOVAX) Branch Influenza Virus 2012-02-16 Completed [facility] of Vaccine 00:00:00 [facility] PPD (TB) 2012-02-16 Completed [facility] of 00:00:00 [facility] Pneumococcal 2012-02-16 Completed [facility] o f Polysaccharide, 00:00:00 [place] [facility] PPSV23 (PNEUMOVAX) Branch Influenza Virus 2012-02-16 Completed [facility] of Vaccine 00:00:00 [facility] PPD (TB) 2012-02-16 Completed [facility] of 00:00:00 [facility] Hep B, Adol or Pedi 2011-09-01 Completed Unive rsity of Dosage 00:00:00 [facility] Hep B, Adol or Pedi 2011-09-01 Completed [...] rsity of Dosage 00:00:00 [facility] Hep B, Adol or Pedi 2011-09-01 Completed [...] 2011-03-17 Completed [facility] Dosage 00:00:00 [facility] Hep B, Adol or Pedi 2011-03-17 Completed [facility] Dosage 00:00:00 [facility] Hep B, Adol or Pedi 2011-03-17 Completed [facility] of Dosage 00:00:00 [facility] Hep B, Adol or Pedi 2011-03-17 Completed [facility] of Dosage 00:00:00 [facility] Hep B, Adol or Pedi 2011-03-17 Completed [facility] of Dosage 00:00:00 [facility] Hep B, Adol or Pedi 2011-03-17 Completed [facility] of Dosage 00:00:00 [facility] Hep B, Adol or Pedi 2011-03-17 Completed [facility] of Dosage 00:00:00 [facility] Hep B, Adol or Pedi 2011-03-17 Completed [facility] of Dosage 00:00:00 [facility] Hep B, Adol or Pedi 2011-03-17 Completed [facility] of Dosage 00:00:00 [facility] Hep B, Adol or Pedi 2011-03-17 Completed [facility]ive rs[facility] of Dosage 00:00:00 [facility] Hep B, Adol or Pedi 2011-03-17 Completed [facility]ive [facility] of Dosage 00:00:00 [facility] Influenza Virus 2011-02-10 Completed [facility]it [facility] of Vaccine 00:00:00 [facility] Hep B, Adol or Pedi 2011-02-10 Completed [facility]ive [facility] of Dosage 00:00:00 [facility] Influenza Virus 2011-02-10 Completed [facility] of Vaccine 00:00:00 [facility] Hep B, Adol or Pedi 2011-02-10 Completed [facility] rs[facility] of Dosage 00:00:00 [facility] Influenza Virus 2011-02-10 Completed [facility] of Vaccine 00:00:00 [facility] Hep B, Adol or Pedi 2011-02-10 Completed [facility] of Dosage 00:00:00 [facility] Influenza Virus 2011-02-10 Completed [facility] of Vaccine 00:00:00 [facility] Hep B, Adol or Pedi 2011-02-10 Completed [facility] rs[facility] of Dosage 00:00:00 [facility] Influenza Virus 2011-02-10 Completed [facility] of Vaccine 00:00:00 [facility] Hep B, Adol or Pedi 2011-02-10 Completed [facility] rs[facility] of Dosage 00:00:00 [facility] Influenza Virus 2011-02-10 Completed [facility] of Vaccine 00:00:00 [facility] Hep B, Adol or Pedi 2011-02-10 Completed [facility] rs[facility] of Dosage 00:00:00 [facility] Influenza Virus 2011-02-10 Completed [facility] of Vaccine 00:00:00 [facility] Hep B, Adol or Pedi 2011-02-10 Completed [facility] of Dosage 00:00:00 [facility] Influenza Virus 2011-02-10 Completed [facility] of Vaccine 00:00:00 [facility] Hep B, Adol or Pedi 2011-02-10 Completed [facility] of Dosage 00:00:00 [facility] Influenza Virus 2011-02-10 Completed [facility] of Vaccine 00:00:00 [facility] Hep B, Adol or Pedi 2011-02-10 Completed [facility] of Dosage 00:00:00 [facility] Influenza Virus 2011-02-10 Completed [facility] of Vaccine 00:00:00 [facility] Hep B, Adol or Pedi 2011-02-10 Completed [facility] of Dosage 00:00:00 [facility] Influenza Virus 2011-02-10 Completed [facility] of Vaccine 00:00:00 [facility] Hep B, Adol or Pedi 2011-02-10 Completed [facility] of Dosage 00:00:00 [facility] Influenza Virus 2011-02-10 Completed [facility] of Vaccine 00:00:00 [facility] Hep B, Adol or Pedi 2011-02-10 Completed [facility] of Dosage 00:00:00 [facility] Influenza Virus 2011-02-10 Completed [facility] of Vaccine 00:00:00 [facility] Hep B, Adol or Pedi 2011-02-10 Completed [facility] of Dosage 00:00:00 [facility] Influenza Virus 2011-02-10 Completed [facility] of Vaccine 00:00:00 [facility] Hep B, Adol or Pedi 2011-02-10 Completed [facility] of Dosage 00:00:00 [facility] Influenza Virus 2011-02-10 Completed [facility] of Vaccine 00:00:00 [facility] Hep B, Adol or Pedi 2011-02-10 Completed [facility] of Dosage 00:00:00 [facility] Influenza Virus 2011-02-10 Completed [facility] of Vaccine 00:00:00 [facility] Hep B, Adol or Pedi 2011-02-10 Completed [facility] of Dosage 00:00:00 [facility] Influenza Virus 2011-02-10 Completed [facility] of Vaccine 00:00:00 [facility] Hep B, Adol or Pedi 2011-02-10 Completed [facility] of Dosage 00:00:00 [facility] Influenza Virus 2011-02-10 Completed [facility] of Vaccine 00:00:00 [facility] Hep B, Adol or Pedi 2011-02-10 Completed [facility] of Dosage 00:00:00 [facility] PPD (TB) 2010-11-18 Completed [facility] of 00:00:00 [facility] TDAP (ADACEL) 2010-11-18 Completed University of VACCINE 00:00:00 [facility] PPD (TB) 2010-11-18 Completed [facility] of 00:00:00 [facility] TDAP (ADACEL) 2010-11-18 Completed [facility] of VACCINE 00:00:00 [facility] PPD (TB) 2010-11-18 Completed [facility] of 00:00:00 [facility] TDAP (ADACEL) 2010-11-18 Completed [facility] of VACCINE 00:00:00 [facility] PPD (TB) 2010-11-18 Completed [facility] of 00:00:00 [facility] TDAP (ADACEL) 2010-11-18 Completed [facility] of VACCINE 00:00:00 [facility] PPD (TB) 2010-11-18 Completed [facility] of 00:00:00 [facility] TDAP (ADACEL) 2010-11-18 Completed [facility] of VACCINE 00:00:00 [facility] PPD (TB) 2010-11-18 Completed [facility] of 00:00:00 [facility] TDAP (ADACEL) 2010-11-18 Completed University of VACCINE 00:00:00 [facility] PPD (TB) 2010-11-18 Completed [facility] of 00:00:00 [facility] TDAP (ADACEL) 2010-11-18 Completed University of VACCINE 00:00:00 [facility] PPD (TB) 2010-11-18 Completed [facility] of 00:00:00 [facility] TDAP (ADACEL) 2010-11-18 Completed University of VACCINE 00:00:00 [facility] PPD (TB) 2010-11-18 Completed [facility] 00:00:00 [facility] TDAP (ADACEL) 2010-11-18 Completed University of VACCINE 00:00:00 [facility] PPD (TB) 2010-11-18 Completed [facility] of 00:00:00 [facility] TDAP (ADACEL) 2010-11-18 Completed University of VACCINE 00:00:00 [facility] PPD (TB) 2010-11-18 Completed [facility] of 00:00:00 [facility] TDAP (ADACEL) 2010-11-18 Completed [facility] of VACCINE 00:00:00 [facility] PPD (TB) 2010-11-18 Completed [facility] of 00:00:00 [facility] TDAP (ADACEL) 2010-11-18 Completed [facility] of VACCINE 00:00:00 [facility] PPD (TB) 2010-11-18 Completed [facility] of 00:00:00 [facility] TDAP (ADACEL) 2010-11-18 Completed [facility] of VACCINE 00:00:00 [facility] PPD (TB) 2010-11-18 Completed [facility] of 00:00:00 [facility] TDAP (ADACEL) 2010-11-18 Completed [facility] of VACCINE 00:00:00 [facility] PPD (TB) 2010-11-18 Completed [facility] of 00:00:00 [facility] TDAP (ADACEL) 2010-11-18 Completed [facility] of VACCINE 00:00:00 [facility] PPD (TB) 2010-11-18 Completed [facility] of 00:00:00 [facility] TDAP (ADACEL) 2010-11-18 Completed University of VACCINE 00:00:00 [facility] PPD (TB) 2010-11-18 Completed [facility] of 00:00:00 [facility] TDAP (ADACEL) 2010-11-18 Completed [facility] of VACCINE 00:00:00 [facility] PPD (TB) 2010-11-18 Completed [facility] of 00:00:00 [facility] TDAP (ADACEL) 2010-11-18 Completed University of VACCINE 00:00:00 [facility] HEPATITIS A 2004-03-02 Completed [facility] of 00:00:00 [facility] HEPATITIS A 2004-03-02 Completed [facility] of 00:00:00 [facility] HEPATITIS A 2004-03-02 Completed [facility] of 00:00:00 [facility] HEPATITIS A 2004-03-02 Completed [facility] of 00:00:00 [facility] HEPATITIS A 2004-03-02 Completed [facility] 00:00:00 [facility] HEPATITIS A 2004-03-02 Completed [facility] 00:00:00 [facility] HEPATITIS A 2004-03-02 Completed [facility] of 00:00:00 [facility] HEPATITIS A 2004-03-02 Completed [facility] of 00:00:00 [facility] HEPATITIS A 2004-03-02 Completed [facility] 00:00:00 [facility] HEPATITIS A 2004-03-02 Completed [facility] of 00:00:00 [facility] HEPATITIS A 2004-03-02 Completed [facility] of 00:00:00 [facility] HEPATITIS A 2004-03-02 Completed [facility] of 00:00:00 [facility] HEPATITIS A 2004-03-02 Completed [facility] of 00:00:00 [facility] HEPATITIS A 2004-03-02 Completed [facility] of 00:00:00 [facility] HEPATITIS A 2004-03-02 Completed [facility] of 00:00:00 [facility] HEPATITIS A 2004-03-02 Completed [facility] of 00:00:00 [facility] HEPATITIS A 2004-03-02 Completed [facility] of 00:00:00 [facility] HEPATITIS A 2004-03-02 Completed [facility] of 00:00:00 [facility] HEPATITIS A 2003-08-01 Completed [facility] of 00:00:00 [facility] HEPATITIS A 2003-08-01 Completed [facility] of 00:00:00 [facility] HEPATITIS A 2003-08-01 Completed [facility] of 00:00:00 [facility] HEPATITIS A 2003-08-01 Completed [facility] of 00:00:00 [facility] HEPATITIS A 2003-08-01 Completed [facility] 00:00:00 [facility] HEPATITIS A 2003-08-01 Completed University of 00:00:00 [facility] HEPATITIS A 2003-08-01 Completed [facility] of 00:00:00 [facility] HEPATITIS A 2003-08-01 Completed [facility] of 00:00:00 [facility] HEPATITIS A 2003-08-01 Completed [facility] 00:00:00 [facility] HEPATITIS A 2003-08-01 Completed [facility] 00:00:00 [facility] HEPATITIS A 2003-08-01 Completed [facility] 00:00:00 [facility] HEPATITIS A 2003-08-01 Completed [facility] 00:00:00 [facility] HEPATITIS A 2003-08-01 Completed [facility] of 00:00:00 [facility] HEPATITIS A 2003-08-01 Completed University of 00:00:00 [facility] HEPATITIS A 2003-08-01 Completed [facility] of 00:00:00 [facility] HEPATITIS A 2003-08-01 Completed [facility] of 00:00:00 [facility] HEPATITIS A 2003-08-01 Completed [facility] of 00:00:00 [facility] HEPATITIS A 2003-08-01 Completed [facility] of 00:00:00 [facility] Pneumococcal 2001-10-04 Completed University o f Polysaccharide, 00:00:00 [place] [facility] PPSV23 (PNEUMOVAX) Branch PPD (TB) 2001-10-04 Completed [facility] of 00:00:00 [facility] Pneumococcal 2001-10-04 Completed University o f Polysaccharide, 00:00:00 [place] [facility] PPSV23 (PNEUMOVAX) Branch PPD (TB) 2001-10-04 Completed [facility] of 00:00:00 [facility] Pneumococcal 2001-10-04 Completed University o f Polysaccharide, 00:00:00 [place] [facility] PPSV23 (PNEUMOVAX) Branch PPD (TB) 2001-10-04 Completed [facility] of 00:00:00 [facility] Pneumococcal 2001-10-04 Completed University o f Polysaccharide, 00:00:00 [place] [facility] PPSV23 (PNEUMOVAX) Branch PPD (TB) 2001-10-04 Completed [facility] of 00:00:00 [facility] Pneumococcal 2001-10-04 Completed University o f Polysaccharide, 00:00:00 [place] [facility] PPSV23 (PNEUMOVAX) Branch PPD (TB) 2001-10-04 Completed [facility] of 00:00:00 [facility] Pneumococcal 2001-10-04 Completed University o f Polysaccharide, 00:00:00 [place] [facility] PPSV23 (PNEUMOVAX) Branch PPD (TB) 2001-10-04 Completed [facility] of 00:00:00 [facility] Pneumococcal 2001-10-04 Completed University o f Polysaccharide, 00:00:00 [place] [facility] PPSV23 (PNEUMOVAX) Branch PPD (TB) 2001-10-04 Completed [facility] of 00:00:00 [facility] Pneumococcal 2001-10-04 Completed University o f Polysaccharide, 00:00:00 [place] [facility] PPSV23 (PNEUMOVAX) Branch PPD (TB) 2001-10-04 Completed [facility] of 00:00:00 [facility] Pneumococcal 2001-10-04 Completed University o f Polysaccharide, 00:00:00 [place] [facility] PPSV23 (PNEUMOVAX) Branch PPD (TB) 2001-10-04 Completed [facility] of 00:00:00 [facility] Pneumococcal 2001-10-04 Completed University o f Polysaccharide, 00:00:00 [place] [facility] PPSV23 (PNEUMOVAX) Branch PPD (TB) 2001-10-04 Completed [facility] of 00:00:00 [facility] Pneumococcal 2001-10-04 Completed University o f Polysaccharide, 00:00:00 [place] [facility] PPSV23 (PNEUMOVAX) Branch PPD (TB) 2001-10-04 Completed [facility] of 00:00:00 [facility] Pneumococcal 2001-10-04 Completed University o f Polysaccharide, 00:00:00 [place] [facility] PPSV23 (PNEUMOVAX) Branch PPD (TB) 2001-10-04 Completed [facility] of 00:00:00 [facility] Pneumococcal 2001-10-04 Completed University o f Polysaccharide, 00:00:00 [place] [facility] PPSV23 (PNEUMOVAX) Branch PPD (TB) 2001-10-04 Completed [facility] of 00:00:00 [facility] Pneumococcal 2001-10-04 Completed University o f Polysaccharide, 00:00:00 [place] [facility] PPSV23 (PNEUMOVAX) Branch PPD (TB) 2001-10-04 Completed [facility] of 00:00:00 [facility] Pneumococcal 2001-10-04 Completed University o f Polysaccharide, 00:00:00 [place] [facility] PPSV23 (PNEUMOVAX) Branch PPD (TB) 2001-10-04 Completed [facility] of 00:00:00 [facility] Pneumococcal 2001-10-04 Completed University o f Polysaccharide, 00:00:00 [place] [facility] PPSV23 (PNEUMOVAX) Branch PPD (TB) 2001-10-04 Completed [facility] of 00:00:00 [facility] Pneumococcal 2001-10-04 Completed University o f Polysaccharide, 00:00:00 [place] [facility] PPSV23 (PNEUMOVAX) Branch PPD (TB) 2001-10-04 Completed [facility] of 00:00:00 [facility] Pneumococcal 2001-10-04 Completed University o f Polysaccharide, 00:00:00 [place] [facility] PPSV23 (PNEUMOVAX) Branch PPD (TB) 2001-10-04 Completed [facility] 00:00:00 [facility] Vital Signs Vital Name Observation Time Observation Value Comments Source Systolic blood 2022-05-10 22:00:00 159 mm[Hg] Univer sity of pressure [facility] Diastolic blood 2022-05-10 22:00:00 87 mm[Hg] Unive rsity of pressure [facility] Heart rate 2022-05-10 22:00:00 56 /min [facility] Body temperature 2022-05-10 22:00:00 36.61 Amina Univ ersity of [facility] Respiratory rate 2022-05-10 22:00:00 17 /min Univ ersity of [facility] Oxygen saturation in 2022-05-10 22:00:00 98 /min University of Arterial blood by [facility] Pulse oximetry Branch Body weight 2022-05-10 16:29:00 78.926 kg [facility] BMI 2022-05-10 16:29:00 29.87 kg/m2 [facility] Systolic blood 2022-05-08 22:30:00 168 mm[Hg] Univer sity of pressure [facility] Diastolic blood 2022-05-08 22:30:00 85 mm[Hg] Unive rsity of pressure [facility] Heart rate 2022-05-08 22:30:00 68 /min [facility] Oxygen saturation in 2022-05-08 22:30:00 100 /min University of Arterial blood by [facility] Pulse oximetry Branch Body [...] 2022-05-07 00:00:00 14 /min Univ ersity of [facility] Oxygen saturation in 2022-05-07 00:00:00 99 /min University of Arterial blood by [facility] Pulse oximetry Branch Body temperature 2022-05-06 20:12:00 36.5 Amina Univ ersity [facility] Body height 2022-05-06 20:12:00 162.6 cm [facility] Body weight 2022-05-06 20:12:00 78.926 kg [facility] BMI 2022-05-06 20:12:00 29.87 kg/m2 [facility] Systolic blood 2022-04-22 19:50:00 156 mm[Hg] Univer sity of pressure [facility] Diastolic blood 2022-04-22 19:50:00 89 mm[Hg] Unive rsity of pressure [facility] Heart rate 2022-04-22 19:50:00 69 /min [facility] Body temperature 2022-04-22 19:50:00 36.67 Amina Univ [facility] Respiratory rate 2022-04-22 19:50:00 17 /min Univ ersity [facility] Body height 2022-04-22 19:50:00 162.6 cm [facility] Body weight 2022-04-22 19:50:00 80.74 kg [facility] BMI 2022-04-22 19:50:00 30.55 kg/m2 [facility] Oxygen saturation in 2022-04-22 19:50:00 96 /min University of Arterial blood by [facility] Pulse oximetry Branch Systolic blood 2022-03-05 15:23:00 167 mm[Hg] Univer sity of pressure [facility] Diastolic blood 2022-03-05 15:23:00 105 mm[Hg] Unive rsity of pressure [facility] Heart rate 2022-03-05 15:23:00 49 /min [facility] Body temperature 2022-03-05 15:18:00 36.67 Amina Univ ers[facility] Respiratory rate 2022-03-05 15:18:00 18 /min Univ ersity [facility] Body height 2022-03-05 15:18:00 162.6 cm [facility] Body weight 2022-03-05 15:18:00 74.707 kg [facility] BMI 2022-03-05 15:18:00 28.27 kg/m2 [facility] Systolic blood 2022-02-16 21:41:00 169 mm[Hg] Univer sity of pressure [facility] Diastolic blood 2022-02-16 21:41:00 86 mm[Hg] Unive rsity of pressure [facility] Heart rate 2022-02-16 21:41:00 51 /min [facility] Body temperature 2022-02-16 21:41:00 36.56 Amina [facility] Respiratory rate 2022-02-16 21:41:00 17 /min Univ ersity of [facility] Oxygen saturation in 2022-02-16 21:41:00 98 /min [facility] Arterial blood by [facility] Pulse oximetry Branch Body height 2022-02-11 16:02:00 162.6 cm [facility] Body weight 2022-02-11 16:02:00 79.379 kg [facility] BMI 2022-02-11 16:02:00 30.04 kg/m2 [facility] Systolic blood 2021-11-20 13:47:00 165 mm[Hg] Univer sity of pressure [facility] Diastolic blood 2021-11-20 13:47:00 83 mm[Hg] Unive rsity of pressure [facility] Heart rate 2021-11-20 13:47:00 58 /min [facility] Body temperature 2021-11-20 13:42:00 36.39 Amina [facility] Respiratory rate 2021-11-20 13:42:00 16 /min Univ ers[facility] Body height 2021-11-20 13:42:00 162.6 cm [facility] Body weight 2021-11-20 13:42:00 84.369 kg [facility] BMI 2021-11-20 13:42:00 31.93 kg/m2 [facility] Systolic blood 2021-07-14 15:18:00 142 mm[Hg] [facility] Diastolic blood 2021-07-14 15:18:00 76 mm[Hg] [facility] Heart rate 2021-07-14 15:18:00 61 [facility] 2021-07-14 15:18:00 162.6 [facility] 2021-07-14 15:18:00 94.802 [facility] BMI 2021-07-14 15:18:00 35.87 kg/m2 [facility] Systolic blood 2022-03-05 15:23:00 167 mm[Hg] Univer sity of pressure [facility] Diastolic blood 2022-03-05 15:23:00 105 mm[Hg] Unive rsity [facility] Heart rate 2022-03-05 15:23:00 49 /min [facility] Body temperature 2022-03-05 15:18:00 36.67 Amina [facility] 2022-03-05 15:18:00 18 /min [facility] Body height 2022-03-05 15:18:00 162.6 cm [facility] Body weight 2022-03-05 15:18:00 74.707 kg [facility] BMI 2022-03-05 15:18:00 28.27 kg/m2 [facility] Oxygen saturation in 2022-02-16 21:41:00 98 /min University Arterial blood by [facility] Pulse oximetry Branch Systolic blood 2020-12-08 15:48:00 125 mm[Hg] Method [facility] pressure Diastolic blood 2020-12-08 15:48:00 76 mm[Hg] [facility] pressure Heart rate 2020-12-08 15:48:00 64 /min [facility] Body temperature 2020-12-08 15:48:[address] [facility] Respiratory rate 2020-12-08 15:48:00 17 /min [facility] Body height 2020-12-08 15:48:00 162.6 cm [facility] Body weight 2020-12-08 15:48:00 98.884 kg [facility] BMI 2020-12-08 15:48:00 37.42 kg/m2 [facility] Oxygen saturation in 2020-12-08 15:48:00 97 /min Arterial blood by Pulse oximetry Respitory Rate 2020-08-30 13:00:00 [facility] [place] Systolic (mm Hg) 2020-08-30 13:00:00 Caesar rial [place] Diastolic (mm Hg) 2020-08-30 13:00:00 Mem orial [place] Systolic (mm Hg) 2020-08-30 11:00:00 Caesar rial [place] Diastolic (mm Hg) 2020-08-30 11:00:00 Mem orial [place] Temperature Oral (F) 2020-08-30 11:00:00 98.4 F [facility] [place] Respitory Rate 2020-08-30 11:00:00 [facility]ori [facility] [place] Respitory Rate 2020-08-30 10:00:00 [facility] Systolic (mm Hg) 2020-08-30 10:00:00 Caesar rial [place] Diastolic (mm Hg) 2020-08-30 10:00:00 Mem orial [place] Temperature Oral (F) 2020-08-30 00:00:00 96.9 F [facility] Temperature Oral (F) 2020-08-29 11:26:00 97.6 F [facility] Height 2020-08-29 10:30:00 162.56 cm [facility] Weight 2020-08-29 10:30:00 [facility] BMI Calculated 2020-08-29 10:30:00 Draien al [place] Procedures Procedure Date / Time Performing Clinician Source Performed URINALYSIS 2022-05-10 19:36:00 Home [facility] TROPONIN I 2022-05-10 18:34:00 Home [facility] COMP. METABOLIC PANEL 2022-05-10 18:34:00 Home [facility] ([id number]) [facility] CBC WITH DIFF 2022-05-10 18:34:00 Home [facility] XR CHEST 2 VW 2022-05-10 17:24:58 Home [facility] CONSENT/REFUSAL FOR 2022-05-10 16:26:23 Doctor Unassigned, [facility] DIAGNOSIS AND TREATMENT [facility] CONSENT/REFUSAL FOR 2022-05-10 16:26:09 Doctor Unasseunice, [facility] DIAGNOSIS AND TREATMENT [facility] URINALYSIS 2022-05-08 22:43:00 [facility] XR CHEST 2 VW 2022-05-06 22:56:53 Anette Olea [facility] COMP. METABOLIC PANEL 2022-05-06 22:14:00 Anette Olea [facility] ([id number]) Medical Branch CBC WITH DIFF 2022-05-06 22:14:00 Anette Olea [facility] COVID-19 (ID NOW RAPID 2022-05-06 22:14:00 Anette Olea [facility] TESTING) Medical Branch BASIC METABOLIC PANEL (NA, 2022-04-22 21:23:00 Paulette Gray [facility] K, CL, CO2, GLUCOSE, BUN, Medica l [place] CREATININE, [place]) CBC WITH DIFF 2022-04-22 21:23:00 Paulette Gray [facility] CONSENT/REFUSAL FOR 2022-04-22 19:45:46 Doctor Unasseunice, [facility] DIAGNOSIS AND TREATMENT [facility] SARS-COV-2 COVID-19 2022-03-05 16:09:27 [facility] DIMITRIS-SUCROSE VACCINE [address] [place] [address] YRS+, BIVALENT 0.3ML, IM, (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) FLU 2022-03-05 16:09:27 [facility] VACC(),65+YR,0.5 Medica l Branch ML,IM,ADJUVANTED,QUAD(FLUA D) FLU 2022-03-05 16:09:27 [facility] VACC(),65+YR,0.5 Medica l Branch ML,IM,ADJUVANTED,QUAD(FLUA D) SARS-COV-2 COVID-19 2022-03-05 16:09:27 [facility] DIMITRIS-SUCROSE VACCINE 12 Medical Branch YRS+, BIVALENT 0.3ML, IM, (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) MAGNESIUM 2022-02-15 09:41:00 Radha [facility] BASIC METABOLIC PANEL (NA, 2022-02-15 09:41:00 Sofia Garcia [facility] K, CL, CO2, GLUCOSE, BUN, Medica l Branch CREATININE, [place]) CBC WITH DIFF 2022-02-15 09:41:00 Radha [facility] N-TERMINAL PRO-BNP 2022-02-15 09:41:00 Radha Sofia [facility] CBC WITH DIFF 2022-02-15 09:41:00 Radha [facility] BASIC METABOLIC PANEL (NA, 2022-02-15 09:41:00 Radha [facility] K, CL, CO2, GLUCOSE, BUN, Medica l Branch CREATININE, CA) MAGNESIUM 2022-02-15 09:41:00 Radha [facility] N-TERMINAL PRO-BNP 2022-02-15 09:41:00 Sofia Garcia [facility] BASIC METABOLIC PANEL (NA, 2022-02-13 09:40:00 Sofia Garcia [facility] K, CL, CO2, GLUCOSE, BUN, Medica l Branch CREATININE, CA) CBC WITH DIFF 2022-02-13 09:40:00 Radha [facility] BASIC METABOLIC PANEL (NA, 2022-02-13 09:40:00 Sofia Garcia [facility] K, CL, CO2, GLUCOSE, BUN, Medica l Branch CREATININE, CA) CBC WITH DIFF 2022-02-13 09:40:00 Radha [facility] TROPONIN I 2022-02-11 23:41:00 Radha [facility] N-TERMINAL PRO-BNP 2022-02-11 23:41:00 Radha [facility] TROPONIN I 2022-02-11 23:41:00 Radha [facility] N-TERMINAL PRO-BNP 2022-02-11 23:41:00 Sofia Garcia [facility] HB ECG ROUTINE & RHYTHM 2022-02-11 22:15:36 Sofia Garcia Uni versity [facility] TRANSTHORACIC ECHO (TTE) 2022-02-11 21:26:50 [facility]TTE) 2022-02-11 21:26:50 [facility] 2022-02-11 07:45:43 Rielly Means [facility] CT ABDOMEN PELVIS W 2022-02-11 07:45:43 Reilly Means [facility] RAPID INFLUENZA A/B 2022-02-11 06:54:00 Reilly Means [facility] RAPID INFLUENZA A/B 2022-02-11 06:54:00 Reilly Means [facility] URINALYSIS 2022-02-11 06:45:00 Reilly Means [facility] URINE CULTURE 2022-02-11 06:45:00 Reilly Means [facility] URINALYSIS 2022-02-11 06:45:00 Reilly Means [facility] URINE CULTURE 2022-02-11 06:45:00 Reilly Means [facility] HB ECG ROUTINE & RHYTHM 2022-02-11 05:22:08 Reilly Means [facility] HB ECG ROUTINE & RHYTHM 2022-02-11 05:22:08 Reilly Means [facility] BLOOD CULTURE SCREEN 2022-02-11 04:58:00 Reilly Means [facility] TROPONIN I 2022-02-11 04:58:00 Reilly Means [facility] COMP. METABOLIC PANEL 2022-02-11 04:58:00 Reilly Means [facility] ([id number]) [facility] CBC WITH DIFF 2022-02-11 04:58:00 Reilly Means [facility] PROTHROMBIN TIME / INR 2022-02-11 04:58:00 Reilly [facility] ACTIVATED PARTIAL THRMPLAS 2022-02-11 04:58:00 Reilly Means [facility] N-TERMINAL PRO-BNP 2022-02-11 04:58:00 Reilly [facility] LACTIC ACID WHOLE BLOOD 2022-02-11 04:58:00 Reilly Means [facility] COVID-19 (ID NOW RAPID 2022-02-11 04:58:00 Reilly Means [facility] TESTING) Medical Branch LAB ONLY COVID 2022-02-11 04:58:00 Reilly Means [facility] CBC WITH DIFF 2022-02-11 04:58:00 Reilly Means [facility] ACTIVATED PARTIAL THRMPLAS 2022-02-11 04:58:00 Reilly Means [facility] PROTHROMBIN TIME / INR 2022-02-11 04:58:00 Reilly [facility] COVID-19 (ID NOW RAPID 2022-02-11 04:58:00 Reilly Means [facility] TESTING) Medical Branch COMP. METABOLIC PANEL 2022-02-11 04:58:00 Reilly Means [facility] ([id number]) Medical Branch TROPONIN I 2022-02-11 04:58:00 Reilly Means [facility] N-TERMINAL PRO-BNP 2022-02-11 04:58:00 Reilly [facility] BLOOD CULTURE SCREEN 2022-02-11 04:58:00 Reilly Means [facility] LACTIC ACID WHOLE BLOOD 2022-02-11 04:58:00 Reilly Means [facility] LAB ONLY COVID 2022-02-11 04:58:00 Reilly Means [facility] XR CHEST 1 VW 2022-02-11 04:27:42 Reilly Means [facility] XR CHEST 1 VW 2022-02-11 04:27:42 Reilly Means [facility] HOSPITAL ADMISSION 2022-02-10 05:01:00 Doctor Unassigned, [facility] HOSPITAL ADMISSION 2022-02-10 05:01:00 Doctor Unassigned, [facility] ECG 12-LEAD 2021-07-14 15:14:00 Elan Lira [facility] [id number] 2021-06-17 00:00:00 RIKY Freedman [facility] GASTROINTESTINAL PANEL 2020-12-08 [facility] ABDOMEN 1 VW 2020-12-08 18:06:32 Eliseo Arce [facility] [place] < 1 HOUR 2020-09-05 22:39:00 [facility] SURGICAL PATHOLOGY REQUEST 2020-09-05 21:54:00 Eliseo Arce [facility] XR CHEST 1 VW PORTABLE 2020-09-05 19:55[facility]00 [facility] DISCHARGE PATIENT 2020-09-05 17:27:55 Lucas Harris [facility] ME AN ELECTIVE 2020-09-05 16:47:23 Kirit Flood V. [facility] ENDOTRACHEAL AIRWAY EGD, INTRAOPERATIVE 2020-09-05 16:27[facility] 2020-09-05 [facility] TIME (PTT) M. PROTHROMBIN TIME WITH INR 2020-09-05 15:04:00 Mindy Maharaj M. Plan of Care Planned Activity Planned Date Details Comments Source Future Scheduled 2022-08-07 SHINGLES VACCINES (1 Met [facility] Test 23:30:11 of 2) [code = SHINGLES VACCINES (1 of 2)] Future Scheduled 2022-08-07 BREAST CANCER Test 23:30:11 SCREENING [code = BREAST CANCER SCREENING] Future Scheduled 2022-08-[address] [facility] Test 23:30:11 [code = COLONOSCOPY SCREENING] Future Scheduled 2022-08-07 HEPATITIS B VACCINES Met [facility] Test 23:30:11 (1 of 3 - Risk 3-dose series) [code = HEPATITIS B VACCINES (1 of 3 - Risk 3-dose series)] Future Scheduled 2022-08-07 COVID-19 VACCINE (3 - [facility] Test 23:30:11 Booster for Pfizer series) [code = COVID-19 VACCINE (3 - Booster for Pfizer series)] Future Scheduled 2022-08-07 65+ PNEUMOCOCCAL [facility] Test 23:30:11 VACCINE (4 - PPSV23 if available, else PCV20) [code = 65+ PNEUMOCOCCAL VACCINE (4 - PPSV23 if available, else PCV20)] Future Scheduled 2022-08-07 INFLUENZA VACCINE Method [facility] Test 23:30:11 [code = INFLUENZA VACCINE] Future Scheduled 2022-08-06 SHINGLES VACCINES (1 Met [facility] Test 15:48:02 of 2) [code = SHINGLES VACCINES (1 of 2)] Future Scheduled 2022-08-06 BREAST CANCER Test 15:48:02 SCREENING [code = BREAST CANCER SCREENING] Future Scheduled 2022-08-[address] [facility] Test 15:48:02 [code = COLONOSCOPY SCREENING] Future Scheduled 2022-08-06 HEPATITIS B VACCINES Met [facility] Test 15:48:02 (1 of 3 - Risk 3-dose series) [code = HEPATITIS B VACCINES (1 of 3 - Risk 3-dose series)] Future Scheduled 2022-08-06 COVID-19 VACCINE (3 - [facility] Test 15:48:02 Booster for Pfizer series) [code = COVID-19 VACCINE (3 - Booster for Pfizer series)] Future Scheduled 2022-08-06 65+ PNEUMOCOCCAL [facility] Test 15:48:02 VACCINE (4 - PPSV23 if available, else PCV20) [code = 65+ PNEUMOCOCCAL VACCINE (4 - PPSV23 if available, else PCV20)] Future Scheduled 2022-08-06 INFLUENZA VACCINE Method [facility] Test 15:48:02 [code = INFLUENZA VACCINE] Future Scheduled 2022-06-11 SHINGLES VACCINES (1 Met [facility] Test 16:10:12 of 2) [code = SHINGLES VACCINES (1 of 2)] Future Scheduled 2022-06-11 BREAST CANCER Test 16:10:12 SCREENING [code = BREAST CANCER SCREENING] Future Scheduled 2022-06-[address] [facility] Test 16:10:12 [code = COLONOSCOPY SCREENING] Future Scheduled 2022-06-11 HEPATITIS B VACCINES Met [facility] Test 16:10:12 (1 of 3 - Risk 3-dose series) [code = HEPATITIS B VACCINES (1 of 3 - Risk 3-dose series)] Future Scheduled 2022-06-11 COVID-19 VACCINE (3 - Me [facility] Test 16:10:12 Booster for Pfizer series) [code = COVID-19 VACCINE (3 - Booster for Pfizer series)] Future Scheduled 2022-06-11 65+ [facility]:10[facility]12 VACCINE (4 - PPSV23 if available, else PCV20) [code = 65+ PNEUMOCOCCAL VACCINE (4 - PPSV23 if available, else PCV20)] Future Scheduled 2022-06-11 INFLUENZA VACCINE Method [facility] Test 16:10:12 [code = INFLUENZA VACCINE] Future Scheduled 2022-06-11 SHINGLES VACCINES (1 Met [facility] Test 16:10:12 of 2) [code = SHINGLES VACCINES (1 of 2)] Future Scheduled 2022-06-11 BREAST CANCER Test 16:10:12 SCREENING [code = BREAST CANCER SCREENING] Future Scheduled 2022-06-[address] [facility] Test 16:10:12 [code = COLONOSCOPY SCREENING] Future Scheduled 2022-06-11 HEPATITIS B VACCINES Met [facility] Test 16:10:12 (1 of 3 - Risk 3-dose series) [code = HEPATITIS B VACCINES (1 of 3 - Risk 3-dose series)] Future Scheduled 2022-06-11 COVID-19 VACCINE (3 - [facility] Test 16:10:12 Booster for Pfizer series) [code = COVID-19 VACCINE (3 - Booster for Pfizer series)] Future Scheduled 2022-06-11 65+ [facility]12 VACCINE (4 - PPSV23 if available, else PCV20) [code = 65+ PNEUMOCOCCAL VACCINE (4 - PPSV23 if available, else PCV20)] Future Scheduled 2022-06-11 INFLUENZA VACCINE Method [facility] Test 16:10:12 [code = INFLUENZA VACCINE] Future Scheduled 2022-06-11 SHINGLES VACCINES (1 Met [facility] Test 16:10:12 of 2) [code = SHINGLES VACCINES (1 of 2)] Future Scheduled 2022-06-11 BREAST CANCER Test 16:10:12 SCREENING [code = BREAST CANCER SCREENING] Future Scheduled 2022-06-11 COLONOSCOPY SCREENING [facility] Test 16:10:12 [code = COLONOSCOPY SCREENING] Future Scheduled 2022-06-11 HEPATITIS B VACCINES Met [facility] Test 16:10:12 (1 of 3 - Risk 3-dose series) [code = HEPATITIS B VACCINES (1 of 3 - Risk 3-dose series)] Future Scheduled 2022-06-11 COVID-19 VACCINE (3 - Me [facility] Test 16:10:12 Booster for Pfizer series) [code = COVID-19 VACCINE (3 - Booster for Pfizer series)] Future Scheduled 2022-06-11 65[facility]12 VACCINE (4 - PPSV23 if available, else PCV20) [code = 65+ PNEUMOCOCCAL VACCINE (4 - PPSV23 if available, else PCV20)] Future Scheduled 2022-06-11 INFLUENZA VACCINE Method [facility] Test 16:10:12 [code = INFLUENZA VACCINE] Future Scheduled 2022-06-11 SHINGLES VACCINES (1 Met [facility] Test 16:10:12 of 2) [code = SHINGLES VACCINES (1 of 2)] Future Scheduled 2022-06-11 BREAST CANCER Test 16:10:12 SCREENING [code = BREAST CANCER SCREENING] Future Scheduled 2022-06-[address] [facility] Test 16:10:12 [code = COLONOSCOPY SCREENING] Future Scheduled 2022-06-11 HEPATITIS B VACCINES Met [facility] Test 16:10:12 (1 of 3 - Risk 3-dose series) [code = HEPATITIS B VACCINES (1 of 3 - Risk 3-dose series)] Future Scheduled 2022-06-11 COVID-19 VACCINE (3 - Me [facility] Test 16:10:12 Booster for Pfizer series) [code = COVID-19 VACCINE (3 - Booster for Pfizer series)] Future Scheduled 2022-06-11 65[facility]:10:12 VACCINE (4 - PPSV23 if available, else PCV20) [code = 65+ PNEUMOCOCCAL VACCINE (4 - PPSV23 if available, else PCV20)] Future Scheduled 2022-06-11 INFLUENZA VACCINE Method [facility] Test 16:10:12 [code = INFLUENZA VACCINE] Future Scheduled 2022-06-11 SHINGLES VACCINES (1 Met [facility] Test 16:10:12 of 2) [code = SHINGLES VACCINES (1 of 2)] Future Scheduled 2022-06-11 BREAST CANCER Test 16:10:12 SCREENING [code = BREAST CANCER SCREENING] Future Scheduled 2022-06-[address] [facility] Test 16:10:12 [code = COLONOSCOPY SCREENING] Future Scheduled 2022-06-11 HEPATITIS B VACCINES Met [facility] Test 16:10:12 (1 of 3 - Risk 3-dose series) [code = HEPATITIS B VACCINES (1 of 3 - Risk 3-dose series)] Future Scheduled 2022-06-11 COVID-19 VACCINE (3 - Me [facility] Test 16:10:12 Booster for Pfizer series) [code = COVID-19 VACCINE (3 - Booster for Pfizer series)] Future Scheduled 2022-06-11 65+ [facility] 16:10:12 VACCINE (4 - PPSV23 if available, else PCV20) [code = 65+ PNEUMOCOCCAL VACCINE (4 - PPSV23 if available, else PCV20)] Future Scheduled 2022-06-11 INFLUENZA VACCINE Method [facility] Test 16:10:12 [code = INFLUENZA VACCINE] Future Scheduled 2022-06-11 SHINGLES VACCINES (1 Met [facility] Test 16:10:12 of 2) [code = SHINGLES VACCINES (1 of 2)] Future Scheduled 2022-06-11 BREAST CANCER Test 16:10:12 SCREENING [code = BREAST CANCER SCREENING] Future Scheduled 2022-06-[address] [facility] Test 16:10:12 [code = COLONOSCOPY SCREENING] Future Scheduled 2022-06-11 HEPATITIS B VACCINES Met [facility] Test 16:10:12 (1 of 3 - Risk 3-dose series) [code = HEPATITIS B VACCINES (1 of 3 - Risk 3-dose series)] Future Scheduled 2022-06-11 COVID-19 VACCINE (3 - Me [facility] Test 16:10:12 Booster for Pfizer series) [code = COVID-19 VACCINE (3 - Booster for Pfizer series)] Future Scheduled 2022-06-11 65[facility] 16:10:12 VACCINE (4 - PPSV23 if available, else PCV20) [code = 65+ PNEUMOCOCCAL VACCINE (4 - PPSV23 if available, else PCV20)] Future Scheduled 2022-06-11 INFLUENZA VACCINE Method [facility] Test 16:10:12 [code = INFLUENZA VACCINE] Future Scheduled 2022-06-11 SHINGLES VACCINES (1 Met [facility] Test 16:10:12 of 2) [code = SHINGLES VACCINES (1 of 2)] Future Scheduled 2022-06-11 BREAST CANCER Test 16:10:12 SCREENING [code = BREAST CANCER SCREENING] Future Scheduled 2022-06-[address] [facility] Test 16:10:12 [code = COLONOSCOPY SCREENING] Future Scheduled 2022-06-11 HEPATITIS B VACCINES Met [facility] Test 16:10:12 (1 of 3 - Risk 3-dose series) [code = HEPATITIS B VACCINES (1 of 3 - Risk 3-dose series)] Future Scheduled 2022-06-11 COVID-19 VACCINE (3 - Me [facility] Test 16:10:12 Booster for Pfizer series) [code = COVID-19 VACCINE (3 - Booster for Pfizer series)] Future Scheduled 2022-06-11 65+ [facility] 16:10:12 VACCINE (4 - PPSV23 if available, else PCV20) [code = 65+ PNEUMOCOCCAL VACCINE (4 - PPSV23 if available, else PCV20)] Future Scheduled 2022-06-11 INFLUENZA VACCINE Method [facility] Test 16:10:12 [code = INFLUENZA VACCINE] Future Scheduled 2022-06-11 SHINGLES VACCINES (1 Met [facility] Test 16:10:12 of 2) [code = SHINGLES VACCINES (1 of 2)] Future Scheduled 2022-06-11 BREAST CANCER Test 16:10:12 SCREENING [code = BREAST CANCER SCREENING] Future Scheduled 2022-06-[address] [facility] Test 16:10:12 [code = COLONOSCOPY SCREENING] Future Scheduled 2022-06-11 HEPATITIS B VACCINES Met [facility] Test 16:10:12 (1 of 3 - Risk 3-dose series) [code = HEPATITIS B VACCINES (1 of 3 - Risk 3-dose series)] Future Scheduled 2022-06-11 COVID-19 VACCINE (3 - Me [facility] Test 16:10:12 Booster for Pfizer series) [code = COVID-19 VACCINE (3 - Booster for Pfizer series)] Future Scheduled 2022-06-11 65[facility] 16:10:12 VACCINE (4 - PPSV23 if available, else PCV20) [code = 65+ PNEUMOCOCCAL VACCINE (4 - PPSV23 if available, else PCV20)] Future Scheduled 2022-06-11 INFLUENZA VACCINE Method [facility] Test 16:10:12 [code = INFLUENZA VACCINE] Future Scheduled 2022-06-11 SHINGLES VACCINES (1 Met [facility] Test 16:10:12 of 2) [code = SHINGLES VACCINES (1 of 2)] Future Scheduled 2022-06-11 BREAST CANCER Test 16:10:12 SCREENING [code = BREAST CANCER SCREENING] Future Scheduled 2022-06-[address] [facility] Test 16:10:12 [code = COLONOSCOPY SCREENING] Future Scheduled 2022-06-11 HEPATITIS B VACCINES Met [facility] Test 16:10:12 (1 of 3 - Risk 3-dose series) [code = HEPATITIS B VACCINES (1 of 3 - Risk 3-dose series)] Future Scheduled 2022-06-11 COVID-19 VACCINE (3 - [facility] Test 16:10:12 Booster for Pfizer series) [code = COVID-19 VACCINE (3 - Booster for Pfizer series)] Future Scheduled 2022-06-11 65+ [facility] 16:10:12 VACCINE (4 - PPSV23 if available, else PCV20) [code = 65+ PNEUMOCOCCAL VACCINE (4 - PPSV23 if available, else PCV20)] Future Scheduled 2022-06-11 INFLUENZA VACCINE Method [facility] Test 16:10:12 [code = INFLUENZA VACCINE] Future Scheduled 2022-05-10 SHINGLES VACCINES (1 Met [facility] Test 10:21:35 of 2) [code = SHINGLES VACCINES (1 of 2)] Future Scheduled 2022-05-10 BREAST CANCER Test 10:21:35 SCREENING [code = BREAST CANCER SCREENING] Future Scheduled 2022-05-[address] [facility] Test 10:21:35 [code = COLONOSCOPY SCREENING] Future Scheduled 2022-05-10 HEPATITIS B VACCINES Met [facility] Test 10:21:35 (1 of 3 - Risk 3-dose series) [code = HEPATITIS B VACCINES (1 of 3 - Risk 3-dose series)] Future Scheduled 2022-05-10 COVID-19 VACCINE (3 - [facility] Test 10:21:35 Booster for Pfizer series) [code = COVID-19 VACCINE (3 - Booster for Pfizer series)] Future Scheduled 2022-05-10 65+ [facility] 10:21:35 VACCINE (4 - PPSV23 if available, else PCV20) [code = 65+ PNEUMOCOCCAL VACCINE (4 - PPSV23 if available, else PCV20)] Future Scheduled 2022-05-10 INFLUENZA VACCINE Method [facility] Test 10:21:35 [code = INFLUENZA VACCINE] Future Scheduled 2022-05-10 SHINGLES VACCINES (1 Met [facility] Test 10:21:35 of 2) [code = SHINGLES VACCINES (1 of 2)] Future Scheduled 2022-05-10 BREAST CANCER Test 10:21:35 SCREENING [code = BREAST CANCER SCREENING] Future Scheduled 2022-05-[address] [facility] Test 10:21:35 [code = COLONOSCOPY SCREENING] Future Scheduled 2022-05-10 HEPATITIS B VACCINES Met [facility] Test 10:21:35 (1 of 3 - Risk 3-dose series) [code = HEPATITIS B VACCINES (1 of 3 - Risk 3-dose series)] Future Scheduled 2022-05-10 COVID-19 VACCINE (3 - Me [facility] Test 10:21:35 Booster for Pfizer series) [code = COVID-19 VACCINE (3 - Booster for Pfizer series)] Future Scheduled 2022-05-10 65+ [facility] 10:21:35 VACCINE (4 - PPSV23 if available, else PCV20) [code = 65+ PNEUMOCOCCAL VACCINE (4 - PPSV23 if available, else PCV20)] Future Scheduled 2022-05-10 INFLUENZA VACCINE Method [facility] Test 10:21:35 [code = INFLUENZA VACCINE] Future Scheduled 2022-05-06 SHINGLES VACCINES (1 Met [facility] Test 14:03:13 of 2) [code = SHINGLES VACCINES (1 of 2)] Future Scheduled 2022-05-06 BREAST CANCER Test 14:03:13 SCREENING [code = BREAST CANCER SCREENING] Future Scheduled 2022-05-[address] [facility] Test 14:03:13 [code = COLONOSCOPY SCREENING] Future Scheduled 2022-05-06 HEPATITIS B VACCINES Met [facility] Test 14:03:13 (1 of 3 - Risk 3-dose series) [code = HEPATITIS B VACCINES (1 of 3 - Risk 3-dose series)] Future Scheduled 2022-05-06 COVID-19 VACCINE (3 - [facility] Test 14:03:13 Booster for Pfizer series) [code = COVID-19 VACCINE (3 - Booster for Pfizer series)] Future Scheduled 2022-05-06 65+ PNEUMOCOCCAL [facility] Test 14:03:13 VACCINE (4 - PPSV23 if available, else PCV20) [code = 65+ PNEUMOCOCCAL VACCINE (4 - PPSV23 if available, else PCV20)] Future Scheduled 2022-05-06 INFLUENZA VACCINE Method [facility] Test 14:03:13 [code = INFLUENZA VACCINE] Future Scheduled 2022-04-30 SHINGLES VACCINES (1 Met [facility] Test 01:07:32 of 2) [code = SHINGLES VACCINES (1 of 2)] Future Scheduled 2022-04-30 BREAST CANCER Test 01:07:32 SCREENING [code = BREAST CANCER SCREENING] Future Scheduled 2022-04-[address] [facility] Test 01:07:32 [code = COLONOSCOPY SCREENING] Future Scheduled 2022-04-30 HEPATITIS B VACCINES Met [facility] Test 01:07:32 (1 of 3 - Risk 3-dose series) [code = HEPATITIS B VACCINES (1 of 3 - Risk 3-dose series)] Future Scheduled 2022-04-30 COVID-19 VACCINE (3 - [facility] Test 01:07:32 Booster for Pfizer series) [code = COVID-19 VACCINE (3 - Booster for Pfizer series)] Future Scheduled 2022-04-30 65+ PNEUMOCOCCAL [facility] Test 01:07:32 VACCINE (4 - PPSV23 if available, else PCV20) [code = 65+ PNEUMOCOCCAL VACCINE (4 - PPSV23 if available, else PCV20)] Future Scheduled 2022-04-30 INFLUENZA VACCINE Method [facility] Test 01:07:32 [code = INFLUENZA VACCINE] Future Scheduled 2022-04-30 SHINGLES VACCINES (1 Met [facility] Test 01:07:32 of 2) [code = SHINGLES VACCINES (1 of 2)] Future Scheduled 2022-04-30 BREAST CANCER Test 01:07:32 SCREENING [code = BREAST CANCER SCREENING] Future Scheduled 2022-04-[address] [facility] Test 01:07:32 [code = COLONOSCOPY SCREENING] Future Scheduled 2022-04-30 HEPATITIS B VACCINES Met [facility] Test 01:07:32 (1 of 3 - Risk 3-dose series) [code = HEPATITIS B VACCINES (1 of 3 - Risk 3-dose series)] Future Scheduled 2022-04-30 COVID-19 VACCINE (3 - Me [facility] Test 01:07:32 Booster for Pfizer series) [code = COVID-19 VACCINE (3 - Booster for Pfizer series)] Future Scheduled 2022-04-30 65+ [facility] 01:07:32 VACCINE (4 - PPSV23 if available, else PCV20) [code = 65+ PNEUMOCOCCAL VACCINE (4 - PPSV23 if available, else PCV20)] Future Scheduled 2022-04-30 INFLUENZA VACCINE Method [facility] Test 01:07:32 [code = INFLUENZA VACCINE] Future Scheduled 2022-04-30 SHINGLES VACCINES (1 Met [facility] Test 01:07:32 of 2) [code = SHINGLES VACCINES (1 of 2)] Future Scheduled 2022-04-30 BREAST CANCER Test 01:07:32 SCREENING [code = BREAST CANCER SCREENING] Future Scheduled 2022-04-[address] [facility] Test 01:07:32 [code = COLONOSCOPY SCREENING] Future Scheduled 2022-04-30 HEPATITIS B VACCINES Met [facility] Test 01:07:32 (1 of 3 - Risk 3-dose series) [code = HEPATITIS B VACCINES (1 of 3 - Risk 3-dose series)] Future Scheduled 2022-04-30 COVID-19 VACCINE (3 - [facility] Test 01:07:32 Booster for Pfizer series) [code = COVID-19 VACCINE (3 - Booster for Pfizer series)] Future Scheduled 2022-04-30 65[facility] 01:07:32 VACCINE (4 - PPSV23 if available, else PCV20) [code = 65+ PNEUMOCOCCAL VACCINE (4 - PPSV23 if available, else PCV20)] Future Scheduled 2022-04-30 INFLUENZA VACCINE Method [facility] Test 01:07:32 [code = INFLUENZA VACCINE] Future Scheduled 2022-04-25 SHINGLES VACCINES (1 Met [facility] Test 01:45:02 of 2) [code = SHINGLES VACCINES (1 of 2)] Future Scheduled 2022-04-25 BREAST CANCER Test 01:45:02 SCREENING [code = BREAST CANCER SCREENING] Future Scheduled 2022-04-[address] [facility] Test 01:45:02 [code = COLONOSCOPY SCREENING] Future Scheduled 2022-04-25 HEPATITIS B VACCINES Met [facility] Test 01:45:02 (1 of 3 - Risk 3-dose series) [code = HEPATITIS B VACCINES (1 of 3 - Risk 3-dose series)] Future Scheduled 2022-04-25 COVID-19 VACCINE (3 - [facility] Test 01:45:02 Booster for Pfizer series) [code = COVID-19 VACCINE (3 - Booster for Pfizer series)] Future Scheduled 2022-04-25 65+ PNEUMOCOCCAL [facility] Test 01:45:02 VACCINE (4 - PPSV23 if available, else PCV20) [code = 65+ PNEUMOCOCCAL VACCINE (4 - PPSV23 if available, else PCV20)] Future Scheduled 2022-04-25 INFLUENZA VACCINE Method [facility] Test 01:45:02 [code = INFLUENZA VACCINE] Future Scheduled 2022-03-25 SHINGLES VACCINES (1 Met [facility] Test 14:48:42 of 2) [code = SHINGLES VACCINES (1 of 2)] Future Scheduled 2022-03-25 BREAST CANCER Test 14:48:42 SCREENING [code = BREAST CANCER SCREENING] Future Scheduled 2022-03-[address] [facility] Test 14:48:42 [code = COLONOSCOPY SCREENING] Future Scheduled 2022-03-25 HEPATITIS B VACCINES Met [facility] Test 14:48:42 (1 of 3 - Risk 3-dose series) [code = HEPATITIS B VACCINES (1 of 3 - Risk 3-dose series)] Future Scheduled 2022-03-25 COVID-19 VACCINE (3 - [facility] Test 14:48:42 Booster for Pfizer series) [code = COVID-19 VACCINE (3 - Booster for Pfizer series)] Future Scheduled 2022-03-25 65+ [facility] 14:48:42 VACCINE (4 - PPSV23 if available, else PCV20) [code = 65+ PNEUMOCOCCAL VACCINE (4 - PPSV23 if available, else PCV20)] Future Scheduled 2022-03-25 INFLUENZA VACCINE Method [facility] Test 14:48:42 [code = INFLUENZA VACCINE] Future Scheduled 2022-03-25 SHINGLES VACCINES (1 Met [facility] Test 14:48:42 of 2) [code = SHINGLES VACCINES (1 of 2)] Future Scheduled 2022-03-25 BREAST CANCER Test 14:48:42 SCREENING [code = BREAST CANCER SCREENING] Future Scheduled 2022-03-[address] [facility] Test 14:48:42 [code = COLONOSCOPY SCREENING] Future Scheduled 2022-03-25 HEPATITIS B VACCINES Met [facility] Test 14:48:42 (1 of 3 - Risk 3-dose series) [code = HEPATITIS B VACCINES (1 of 3 - Risk 3-dose series)] Future Scheduled 2022-03-25 COVID-19 VACCINE (3 - Me [facility] Test 14:48:42 Booster for Pfizer series) [code = COVID-19 VACCINE (3 - Booster for Pfizer series)] Future Scheduled 2022-03-25 65[facility] 14:48:42 VACCINE (4 - PPSV23 if available, else PCV20) [code = 65+ PNEUMOCOCCAL VACCINE (4 - PPSV23 if available, else PCV20)] Future Scheduled 2022-03-25 INFLUENZA VACCINE Method [facility] Test 14:48:42 [code = INFLUENZA VACCINE] Future Scheduled 2022-03-25 SHINGLES VACCINES (1 Met [facility] Test 14:48:42 of 2) [code = SHINGLES VACCINES (1 of 2)] Future Scheduled 2022-03-25 BREAST CANCER Test 14:48:42 SCREENING [code = BREAST CANCER SCREENING] Future Scheduled 2022-03-[address] [facility] Test 14:48:42 [code = COLONOSCOPY SCREENING] Future Scheduled 2022-03-25 HEPATITIS B VACCINES Met [facility] Test 14:48:42 (1 of 3 - Risk 3-dose series) [code = HEPATITIS B VACCINES (1 of 3 - Risk 3-dose series)] Future Scheduled 2022-03-25 COVID-19 VACCINE (3 - [facility] Test 14:48:42 Booster for Pfizer series) [code = COVID-19 VACCINE (3 - Booster for Pfizer series)] Future Scheduled 2022-03-25 65+ PNEUMOCOCCAL [facility] Test 14:48:42 VACCINE (4 - PPSV23 if available, else PCV20) [code = 65+ PNEUMOCOCCAL VACCINE (4 - PPSV23 if available, else PCV20)] Future Scheduled 2022-03-25 INFLUENZA VACCINE Method [facility] Test 14:48:42 [code = INFLUENZA VACCINE] Future Scheduled 2022-03-25 SHINGLES VACCINES (1 Met [facility] Test 14:48:42 of 2) [code = SHINGLES VACCINES (1 of 2)] Future Scheduled 2022-03-25 BREAST CANCER Test 14:48:42 SCREENING [code = BREAST CANCER SCREENING] Future Scheduled 2022-03-[address] [facility] Test 14:48:42 [code = COLONOSCOPY SCREENING] Future Scheduled 2022-03-25 HEPATITIS B VACCINES Met [facility] Test 14:48:42 (1 of 3 - Risk 3-dose series) [code = HEPATITIS B VACCINES (1 of 3 - Risk 3-dose series)] Future Scheduled 2022-03-25 COVID-19 VACCINE (3 - [facility] Test 14:48:42 Booster for Pfizer series) [code = COVID-19 VACCINE (3 - Booster for Pfizer series)] Future Scheduled 2022-03-25 65+ PNEUMOCOCCAL [facility] Test 14:48:42 VACCINE (4 - PPSV23 if available, else PCV20) [code = 65+ PNEUMOCOCCAL VACCINE (4 - PPSV23 if available, else PCV20)] Future Scheduled 2022-03-25 INFLUENZA VACCINE Method [facility] Test 14:48:42 [code = INFLUENZA VACCINE] Future Scheduled 2022-03-25 SHINGLES VACCINES (1 Met [facility] Test 14:48:42 of 2) [code = SHINGLES VACCINES (1 of 2)] Future Scheduled 2022-03-25 BREAST CANCER Test 14:48:42 SCREENING [code = BREAST CANCER SCREENING] Future Scheduled 2022-03-[address] [facility] Test 14:48:42 [code = COLONOSCOPY SCREENING] Future Scheduled 2022-03-25 HEPATITIS B VACCINES Met [facility] Test 14:48:42 (1 of 3 - Risk 3-dose series) [code = HEPATITIS B VACCINES (1 of 3 - Risk 3-dose series)] Future Scheduled 2022-03-25 COVID-19 VACCINE (3 - Me [facility] Test 14:48:42 Booster for Pfizer series) [code = COVID-19 VACCINE (3 - Booster for Pfizer series)] Future Scheduled 2022-03-25 65+ [facility] 14:48:42 VACCINE (4 - PPSV23 if available, else PCV20) [code = 65+ PNEUMOCOCCAL VACCINE (4 - PPSV23 if available, else PCV20)] Future Scheduled 2022-03-25 INFLUENZA VACCINE Method [facility] Test 14:48:42 [code = INFLUENZA VACCINE] Future Scheduled 2022-03-25 SHINGLES VACCINES (1 Met [facility] Test 14:48:42 of 2) [code = SHINGLES VACCINES (1 of 2)] Future Scheduled 2022-03-25 BREAST CANCER Test 14:48:42 SCREENING [code = BREAST CANCER SCREENING] Future Scheduled 2022-03-[address] [facility] Test 14:48:42 [code = COLONOSCOPY SCREENING] Future Scheduled 2022-03-25 HEPATITIS B VACCINES Met [facility] Test 14:48:42 (1 of 3 - Risk 3-dose series) [code = HEPATITIS B VACCINES (1 of 3 - Risk 3-dose series)] Future Scheduled 2022-03-25 COVID-19 VACCINE (3 - [facility] Test 14:48:42 Booster for Pfizer series) [code = COVID-19 VACCINE (3 - Booster for Pfizer series)] Future Scheduled 2022-03-25 65+ [facility] 14:48:42 VACCINE (4 - PPSV23 if available, else PCV20) [code = 65+ PNEUMOCOCCAL VACCINE (4 - PPSV23 if available, else PCV20)] Future Scheduled 2022-03-25 INFLUENZA VACCINE Method [facility] Test 14:48:42 [code = INFLUENZA VACCINE] Future Scheduled 2022-03-25 SHINGLES VACCINES (1 Met [facility] Test 14:48:42 of 2) [code = SHINGLES VACCINES (1 of 2)] Future Scheduled 2022-03-25 BREAST CANCER Test 14:48:42 SCREENING [code = BREAST CANCER [...] Scheduled 2022-03-25 COVID-19 VACCINE (3 - Me [facility] Test 14:48:42 Booster for Pfizer series) [code = COVID-19 VACCINE (3 - Booster for Pfizer series)] Future Scheduled 2022-03-25 65[facility] 14:48:42 VACCINE (4 - PPSV23 if available, else PCV20) [code = 65+ PNEUMOCOCCAL VACCINE (4 - PPSV23 if available, else PCV20)] Future Scheduled 2022-03-25 INFLUENZA VACCINE Method [facility] Test 14:48:42 [code = INFLUENZA VACCINE] Future Scheduled 2022-03-25 SHINGLES VACCINES (1 Met [facility] Test 14:48:42 of 2) [code = SHINGLES VACCINES (1 of 2)] Future Scheduled 2022-03-25 BREAST CANCER [facility] Test 14:48:42 SCREENING [code = BREAST CANCER SCREENING] Future Scheduled 2022-03-25 COLONOSCOPY SCREENING [facility] Test 14:48:42 [code = COLONOSCOPY SCREENING] Future Scheduled 2022-03-25 HEPATITIS B VACCINES Met [facility] Test 14:48:42 (1 of 3 - Risk 3-dose series) [code = HEPATITIS B VACCINES (1 of 3 - Risk 3-dose series)] Future Scheduled 2022-03-25 COVID-19 VACCINE (3 - [facility] Test 14:48:42 Booster for Pfizer series) [code = COVID-19 VACCINE (3 - Booster for Pfizer series)] Future Scheduled 2022-03-25 65+ [facility] 14:48[facility]42 VACCINE (4 - PPSV23 if available, else PCV20) [code = 65+ PNEUMOCOCCAL VACCINE (4 - PPSV23 if available, else PCV20)] Future Scheduled 2022-03-25 INFLUENZA VACCINE Method [facility] Test 14:48:42 [code = INFLUENZA VACCINE] Future Scheduled 2022-03-25 SHINGLES VACCINES (1 Met [facility] Test 14:48:42 of 2) [code = SHINGLES VACCINES (1 of 2)] Future Scheduled 2022-03-25 BREAST CANCER Test 14:48:42 SCREENING [code = BREAST CANCER SCREENING] Future Scheduled 2022-03-[address] [facility] Test 14:48:42 [code = COLONOSCOPY SCREENING] Future Scheduled 2022-03-25 HEPATITIS B VACCINES Met [facility] Test 14:48:42 (1 of 3 - Risk 3-dose series) [code = HEPATITIS B VACCINES (1 of 3 - Risk 3-dose series)] Future Scheduled 2022-03-25 COVID-19 VACCINE (3 - [facility] Test 14:48:42 Booster for Pfizer series) [code = COVID-19 VACCINE (3 - Booster for Pfizer series)] Future Scheduled 2022-03-25 65+ [facility] 14:48:42 VACCINE (4 - PPSV23 if available, else PCV20) [code = 65+ PNEUMOCOCCAL VACCINE (4 - PPSV23 if available, else PCV20)] Future Scheduled 2022-03-25 INFLUENZA VACCINE Method [facility] Test 14:48:42 [code = INFLUENZA VACCINE] Future Scheduled 2022-03-04 SHINGLES VACCINES (1 Met [facility] Test 14:03:57 of 2) [code = SHINGLES VACCINES (1 of 2)] Future Scheduled 2022-03-04 BREAST CANCER Test 14:03:57 SCREENING [code = BREAST CANCER SCREENING] Future Scheduled 2022-03-[address] [facility] Test 14:03:57 [code = COLONOSCOPY SCREENING] Future Scheduled 2022-03-04 HEPATITIS B VACCINES Met [facility] Test 14:03:57 (1 of 3 - Risk 3-dose series) [code = HEPATITIS B VACCINES (1 of 3 - Risk 3-dose series)] Future Scheduled 2022-03-04 COVID-19 VACCINE (3 - [facility] Test 14:03:57 Booster for Pfizer series) [code = COVID-19 VACCINE (3 - Booster for Pfizer series)] Future Scheduled 2022-03-04 65+ [facility] Test 14:03:57 VACCINE (4 - PPSV23 if available, else PCV20) [code = 65+ PNEUMOCOCCAL VACCINE (4 - PPSV23 if available, else PCV20)] Future Scheduled 2022-03-04 INFLUENZA VACCINE Method [facility] Test 14:03:57 [code = INFLUENZA VACCINE] Future Scheduled 2022-03-04 SHINGLES VACCINES (1 Met [facility] Test 14:03:57 of 2) [code = SHINGLES VACCINES (1 of 2)] Future Scheduled 2022-03-04 BREAST CANCER Test 14:03:57 SCREENING [code = BREAST CANCER SCREENING] Future Scheduled 2022-03-[address] [facility] Test 14:03:57 [code = COLONOSCOPY SCREENING] Future Scheduled 2022-03-04 HEPATITIS B VACCINES Met [facility] Test 14:03:57 (1 of 3 - Risk 3-dose series) [code = HEPATITIS B VACCINES (1 of 3 - Risk 3-dose series)] Future Scheduled 2022-03-04 COVID-19 VACCINE (3 - [facility] Test 14:03:57 Booster for Pfizer series) [code = COVID-19 VACCINE (3 - Booster for Pfizer series)] Future Scheduled 2022-03-04 65+ [facility] Test 14:03:57 VACCINE (4 - PPSV23 if [...] of 2)] Future Scheduled 2022-03-04 BREAST CANCER Test 14:03:57 SCREENING [code = BREAST CANCER SCREENING] Future Scheduled 2022-03-[address] [facility] Test 14:03:57 [code = COLONOSCOPY SCREENING] Future Scheduled 2022-03-04 HEPATITIS B VACCINES Met [facility] Test 14:03:57 (1 of 3 - Risk 3-dose series) [code = HEPATITIS B VACCINES (1 of 3 - Risk 3-dose series)] Future Scheduled 2022-03-04 COVID-19 VACCINE (3 - [facility] Test 14:03:57 Booster for Pfizer series) [code = COVID-19 VACCINE (3 - Booster for Pfizer series)] Future Scheduled 2022-03-04 65+ [facility]CCAL [facility] Test 14:03:57 VACCINE (4 - PPSV23 if [...] of 2)] Future Scheduled 2022-03-04 BREAST CANCER Test 14:03:57 SCREENING [code = BREAST CANCER SCREENING] Future Scheduled 2022-03-[address] [facility] Test 14:03:57 [code = COLONOSCOPY SCREENING] Future Scheduled 2022-03-04 HEPATITIS B VACCINES Met [facility] Test 14:03:57 (1 of 3 - Risk 3-dose series) [code = HEPATITIS B VACCINES (1 of 3 - Risk 3-dose series)] Future Scheduled 2022-03-04 COVID-19 VACCINE (3 - [facility] Test 14:03:57 Booster for Pfizer series) [code = COVID-19 VACCINE (3 - Booster for Pfizer series)] Future Scheduled 2022-03-04 65+ [facility]AL [facility] Test 14:03:57 VACCINE (4 - PPSV23 if [...] of 2)] Future Scheduled 2022-02-11 BREAST CANCER Test 13:39:12 SCREENING [code = BREAST CANCER SCREENING] Future Scheduled 2022-02-[address] [facility] Test 13:39:12 [code = COLONOSCOPY SCREENING] Future Scheduled 2022-02-11 HEPATITIS B VACCINES Met [facility] Test 13:39:12 (1 of 3 - Risk 3-dose series) [code = HEPATITIS B VACCINES (1 of 3 - Risk 3-dose series)] Future Scheduled 2022-02-11 COVID-19 VACCINE (3 - [facility] Test 13:39:12 Booster for Pfizer series) [code = COVID-19 VACCINE (3 - Booster for Pfizer series)] Future Scheduled 2022-02-11 65+ PNEUMOCOCCAL [facility] Test 13:39:12 VACCINE (4 - PPSV23 or PCV20) [code = 65+ PNEUMOCOCCAL VACCINE (4 - PPSV23 or PCV20)] Future Scheduled 2022-02-11 INFLUENZA VACCINE Method [facility] Test 13:39:12 [code = INFLUENZA VACCINE] Future Scheduled 2022-01-29 SHINGLES VACCINES (1 Met [facility] Test 14:07:20 of 2) [code = SHINGLES VACCINES (1 of 2)] Future Scheduled 2022-01-29 BREAST CANCER Test 14:07:20 SCREENING [code = BREAST CANCER SCREENING] Future Scheduled 2022-01-[address] [facility] Test 14:07:20 [code = COLONOSCOPY SCREENING] Future Scheduled 2022-01-29 HEPATITIS B VACCINES Met [facility] Test 14:07:20 (1 of 3 - Risk 3-dose series) [code = HEPATITIS B VACCINES (1 of 3 - Risk 3-dose series)] Future Scheduled 2022-01-29 COVID-19 VACCINE (3 - [facility] Test 14:07:20 Booster for Pfizer series) [code = COVID-19 VACCINE (3 - Booster for Pfizer series)] Future Scheduled 2022-01-29 65+ PNEUMOCOCCAL [facility] Test 14:07:20 VACCINE (4 - PPSV23 [...] of 2)] Future Scheduled 2022-01-29 BREAST CANCER Test 14:07:20 SCREENING [code = BREAST CANCER SCREENING] Future Scheduled 2022-01-[address] [facility] Test 14:07:20 [code = COLONOSCOPY SCREENING] Future Scheduled 2022-01-29 HEPATITIS B VACCINES Met [facility] Test 14:07:20 (1 of 3 - Risk 3-dose series) [code = HEPATITIS B VACCINES (1 of 3 - Risk 3-dose series)] Future Scheduled 2022-01-29 COVID-19 VACCINE (3 - [facility] Test 14:07:20 Booster for Pfizer series) [code = COVID-19 VACCINE (3 - Booster for Pfizer series)] Future Scheduled 2022-01-29 65+ PNEUMOCOCCAL [facility] Test 14:07:20 VACCINE (4 - PPSV23 [...] of 2)] Future Scheduled 2022-01-29 BREAST CANCER Test 14:07:20 SCREENING [code = BREAST CANCER SCREENING] Future Scheduled 2022-01-[address] [facility] Test 14:07:20 [code = COLONOSCOPY SCREENING] Future Scheduled 2022-01-29 HEPATITIS B VACCINES Met [facility] Test 14:07:20 (1 of 3 - Risk 3-dose series) [code = HEPATITIS B VACCINES (1 of 3 - Risk 3-dose series)] Future Scheduled 2022-01-29 COVID-19 VACCINE (3 - [facility] Test 14:07:20 Booster for Pfizer series) [code = COVID-19 VACCINE (3 - Booster for Pfizer series)] Future Scheduled 2022-01-29 65+ PNEUMOCOCCAL [facility] Test 14:07:20 VACCINE (4 - PPSV23 [...] of 2)] Future Scheduled 2022-01-29 BREAST CANCER Test 14:07:20 SCREENING [code = BREAST CANCER SCREENING] Future Scheduled 2022-01-[address] [facility] Test 14:07:20 [code = COLONOSCOPY SCREENING] Future Scheduled 2022-01-29 HEPATITIS B VACCINES Met [facility] Test 14:07:20 (1 of 3 - Risk 3-dose series) [code = HEPATITIS B VACCINES (1 of 3 - Risk 3-dose series)] Future Scheduled 2022-01-29 COVID-19 VACCINE (3 - Me [facility] Test 14:07:20 Booster for Pfizer series) [code = COVID-19 VACCINE (3 - Booster for Pfizer series)] Future Scheduled 2022-01-29 65+ PNEUMOCOCCAL [facility] Test 14:07:20 VACCINE (4 - PPSV23 [...] of 2)] Future Scheduled 2022-01-20 Screening for Test 06:12:34 malignant neoplasm of cervix (procedure) [code = [id number]] Future Scheduled 2022-01-20 BREAST CANCER Test 06:12:34 SCREENING [code = BREAST CANCER SCREENING] Future Scheduled 2022-01-[address] [facility] Test 06:12:34 [code = COLONOSCOPY SCREENING] Future Scheduled 2022-01-20 HEPATITIS B VACCINES Met [facility] Test 06:12:34 (1 of 3 - Risk 3-dose series) [code = HEPATITIS B VACCINES (1 of 3 - Risk 3-dose series)] Future Scheduled 2022-01-20 COVID-19 VACCINE (3 - [facility] Test 06:12:34 Booster for Pfizer series) [code = COVID-19 VACCINE (3 - Booster for Pfizer series)] Future Scheduled 2022-01-20 65+ PNEUMOCOCCAL [facility] Test 06:12:34 VACCINE (4 - PPSV23 or PCV20) [code = 65+ PNEUMOCOCCAL VACCINE (4 - PPSV23 or PCV20)] Future Scheduled 2022-01-20 INFLUENZA VACCINE Method [facility] Test 06:12:34 [code = INFLUENZA VACCINE] Future Scheduled 2022-01-16 SHINGLES VACCINES (1 Met [facility] Test 12:09:25 of 2) [code = SHINGLES VACCINES (1 of 2)] Future Scheduled 2022-01-16 Screening for Test 12:09:25 malignant neoplasm of cervix (procedure) [code = [id number]] Future Scheduled 2022-01-16 BREAST CANCER Test 12:09:25 SCREENING [code = BREAST CANCER SCREENING] Future Scheduled 2022-01-[address] [facility] Test 12:09:25 [code = COLONOSCOPY SCREENING] Future Scheduled 2022-01-16 HEPATITIS B VACCINES Met [facility] Test 12:09:25 (1 of 3 - Risk 3-dose series) [code = HEPATITIS B VACCINES (1 of 3 - Risk 3-dose series)] Future Scheduled 2022-01-16 COVID-19 VACCINE (3 - [facility] Test 12:09:25 Booster for Pfizer series) [code = COVID-19 VACCINE (3 - Booster for Pfizer series)] Future Scheduled 2022-01-16 65+ PNEUMOCOCCAL [facility] Test 12:09:25 VACCINE (4 - PPSV23 or PCV20) [code = 65+ PNEUMOCOCCAL VACCINE (4 - PPSV23 or PCV20)] Future Scheduled 2022-01-16 INFLUENZA VACCINE Method [facility] Test 12:09:25 [code = INFLUENZA VACCINE] Future Scheduled 2022-01-14 SHINGLES VACCINES (1 Met [facility] Test 04:11:46 of 2) [code = SHINGLES VACCINES (1 of 2)] Future Scheduled 2022-01-14 Screening for Test 04:11:46 malignant neoplasm of cervix (procedure) [code = [id number]] Future Scheduled 2022-01-14 BREAST CANCER Test 04:11:46 SCREENING [code = BREAST CANCER SCREENING] Future Scheduled 2022-01-[address] [facility] Test 04:11:46 [code = COLONOSCOPY SCREENING] Future Scheduled 2022-01-14 HEPATITIS B VACCINES Met [facility] Test 04:11:46 (1 of 3 - Risk 3-dose series) [code = HEPATITIS B VACCINES (1 of 3 - Risk 3-dose series)] Future Scheduled 2022-01-14 COVID-19 VACCINE (3 - [facility] Test 04:11:46 Booster for Pfizer series) [code = COVID-19 VACCINE (3 - Booster for Pfizer series)] Future Scheduled 2022-01-14 65+ PNEUMOCOCCAL [facility] Test 04:11:46 VACCINE (4 - PPSV23 or PCV20) [code = 65+ PNEUMOCOCCAL VACCINE (4 - PPSV23 or PCV20)] Future Scheduled 2022-01-14 INFLUENZA VACCINE Method [facility] Test 04:11:46 [code = INFLUENZA VACCINE] Future Scheduled 2021-08-26 Screening for Test 13:02:23 malignant neoplasm of cervix (procedure) [code = [id number]] Future Scheduled 2021-08-26 BREAST CANCER Test 13:02:23 SCREENING [code = BREAST CANCER SCREENING] Future Scheduled 2021-08-[address] [facility] Test 13:02:23 [code = COLONOSCOPY SCREENING] Future Scheduled 2021-08-26 Screening for Test 13:02:23 malignant neoplasm of lung (procedure) [code = [id number]] Future Scheduled 2021-08-26 SHINGLES VACCINES (#1) [facility] Test 13:02:23 [code = SHINGLES VACCINES (#1)] Future Scheduled 2021-08-26 COVID-19 VACCINE (3 - [facility] Test 13:02:23 Pfizer risk 4-dose series) [code = COVID-19 VACCINE (3 - Pfizer risk 4-dose series)] Future Scheduled 2021-08-26 65+ PNEUMOCOCCAL [facility] Test 13:02:23 VACCINE (4 of 4 - PPSV23) [code = 65+ PNEUMOCOCCAL VACCINE (4 of 4 - PPSV23)] Future Scheduled 2021-08-26 INFLUENZA VACCINE Method [facility] Test 13:02:23 [code = INFLUENZA VACCINE] Encounters Start End Encounter Admission Attending Care Care Encounter Source Date/Time Date/Time Type Type Clinicians Facility Department ID 2022-02-18 Outpatient [facility] [id number] [place] 14:30:[address] [place] [address] 2021-07-14 Outpatient PANKAJ, [facility] [id number] [place] 09:33:51 [facility] 2021-06-02 Outpatient HEMATPOUR, [facility] [id number] [place] 13:58:59 [facility] 2021-04-28 Outpatient HEMATPOUR, [facility] [id number] [place] 11:21:22 [facility] 2021-03-20 Emergency [facility] [id number] Univers 16:07:40 ity [facility] 2020-12-12 Outpatient HEMATPOUR, [facility] [id number] [place] 08:16:46 [facility] 2020-10-31 Outpatient HEMATPOUR, [facility] [id number] [place] 09:44:50 [place] [facility] 2020-09-30 Outpatient HEMATPOUR, [facility] [id number] [place] 13:16:03 [facility] 2022-05-20 2022-05-20 Telephone [facility] 1.2.840.114 [id number] Univers 00:00:00 00:00:00 [facility] [id number] i [place] [id number] [address] 2022-05-10 2022-05-10 Emergency X BYRON [facility] ERT [id number] Univers 10:30:00 16:31:00 HOME [facility] 2022-05-10 2022-05-10 Emergency Byron, TRAUMA 1.2.840.114 [id number] Univers 10:30:00 16:31:00 [facility] [id number] [place] [id number] [address] 2022-05-10 2022-05-10 Telephone [facility], [facility] 1.2.840.114 [id number] Univers 00:00:00 00:00:00 [facility] [id number] i [place] [id number] [address] 2022-05-08 2022-05-08 Emergency X VICK [facility] ERT [id number] Univers 16:18:00 18:42:00 THERESA [facility] 2022-05-08 2022-05-08 Emergency [facility] 1.2.840.114 [id number] Univers 16:18:00 18:42:00 Theresa BULLOCK [id number] ity of [place] 4.2.7.2.686 [id number] [address] 2022-05-07 2022-05-07 Telephone [facility] 1.2.840.114 [id number] Univers 00:00:00 00:00:00 [facility] [id number] i [place] [id number] [address] 2022-05-06 2022-05-06 Emergency [facility] ERT [id number] Univers 14:13:00 18:19:00 ANETTE [facility] 2022-05-06 2022-05-06 Emergency [facility] [id number] [id number] Univers 14:13:00 18:19:00 Anette BULLOCK [id number] ity of [place] 4.2.7.2.686 [facility] [id number] [address] 2022-05-06 2022-05-06 Telephone [facility] 1.2.840.114 [id number] Univers 00:00:00 00:00:00 [facility] [id number] [place] [id number] [address] 2022-04-22 2022-04-22 Emergency [facility] ERT [id number] Univers 13:55:00 17:00:00 PAULETTE [facility] 2022-04-22 2022-04-22 Emergency [facility] [id number] [id number] Univers 13:55:00 17:00:00 Paulette BULLOCK 350.1.13.10 i ty of [place] 4.2.7.2.686 [facility] [id number] [address] 2022-04-07 2022-04-07 Outpatient R ADRIAN, [facility] [id number] Univers 20:40:00 20:40:00 ATTENDING ity [facility] 2022-04-072022-04-07 Telephone Devin, 1.2.840.0 [id number] Univers 00:00:00 00:00:00 Robbi Hairston 60647.1.1 i ty of 3.104.2.7 [place] .3.091625 Medica l .8 [place] 2022-03-05 2022-03-05 Chute Tapper Ronald Santiago 1.2.840.1 [id number] Univers 13:45:00 14:00:00 Visit [facility] 36745.1.1 ity of 3.104.2.7 [place] .3.838322 Medica l .8 [place] 2022-03-05 2022-03-05 Office Ronald JOSÉ ANTONIO 1.2.879.515 [id number] Univers 13:00:00 13:30:00 Visit Santiago [facility] 350.1.13.10 i ty of CLINICS 4.2.7.2.[id number] [facility] 089 [place] 2022-03-05 2022-03-05 Outpatient R [facility] [id number] Univers 13:00:00 13:00:00 [facility] 2022-02-26 2022-02-26 [facility] [id number] Univers 08:30:00 08:30:00 [facility] 2022-02-26 2022-02-26 Outpatient R [facility] [id number] Univers 08:30:00 08:30:00 [facility] 2022-02-17 2022-02-17 Transition Stevo, 1.2.840.7 [id number] Univers 00:00:00 00:00:00 of Care Isaias Arredondo 57681.1.1 it y of 3.104.2.7 [place] .3.534742 Medica l .8 [place] 2022-02-10 2022-02-16 Inpatient X [facility] [id number] Univers 22:59:00 19:27:00 TOMY [facility] 2022-02-10 2022-02-16 Hospital Reilly Means 1.2.840.1 [id number] Univers 22:59:00 19:27:00 Encounter Ofe Shields 53650.1.1 ity of [place] 3.[place].2.7 [place] .3.782018 Medica l .8 [place] 2022-02-11 2022-02-11 Telephone [place], 1.2.840.3 [id number] Univers 00:00:00 00:00:00 Santiago 45949.1.1 ity of 3.104.2.7 [place] .3.413078 Medica l .8 [place] 2022-02-10 2022-02-10 Travel 1.2.840.1 1.2.759.861 [id number] Univers 00:00:00 00:00:00 06186.1.1 350.1.13.10 ity of 3.104.2.7 4[place].3.698 [place] .3.283735 084.8 Medica l .8 [place] 2022-01-30 2022-01-30 Telephone [place], 1.2.840.1 [id number] Univers 00:00:00 00:00:00 [place] 39473.1.1 ity of 3.104.2.7 [place] .3.188433 Medica l .8 [place] 2022-01-06 2022-01-06 Orders Doctor FERMIN 1.2.840.114 [id number] Univers 00:00:00 00:00:00 Only Unassigned, JACKELINE 350.1.13.10 ity of [facility] 4.2.7.2.[id number] [facility] 009 Branch 2021-12-25 2021-12-25 Orders Doctor FERMIN 1.2.840.114 [id number] Univers 00:00:00 00:00:00 Only Unassigned, JACKELINE 350.1.13.10 ity of [facility] 4.2.7.2.686 Yomi as [id number] [facility] porfirio 009 Branch 2021-12-12 2021-12-13 Emergency X Bill COLES [facility] ERT [id number] Univers 23:53:00 01:52:00 ity of [place] [facility] 2021-12-12 2021-12-13 Emergency Bill Coles [facility] 1.2.840.114 [id number] Univers 23:53:00 01:52:00 Kiersten BULLOCK 350.1.13.10 i [place] [facility] [id number] [facility] 084 [place] 2021-11-20 2021-11-20 Chute Tapper [facility] UNIVERSIT 1.2.840.114 [id number] Univers 09:45:00 10:00:00 Visit [facility] 350.1.13.10 it[place] of [place].[address] [place] [id number] [facility] 316 [address] 2021-11-20 2021-11-20 Office [facility] 1.2.570.266 [id number] Univers 08:30:00 09:00:00 Visit [facility] 350.1.13.10 i ty of CL[place] [place] [id number] [facility] 089 [place] 2021-11-20 2021-11-20 Outpatient R [facility] [id number] Univers 08:30:00 08:30:00 [facility] 2021-11-20 2021-11-20 Outpatient R [facility] [id number] Univers 08:30:00 08:30:00 [facility] 2021-11-20 2021-11-20 Outpatient R [facility] [id number] Univers 08:30:00 08:30:00 [facility] 2021-11-20 2021-11-20 Outpatient R [facility] [id number] Univers 08:30:00 08:30:00 [facility] 2021-10-24 2021-10-24 Emergency X NIXONAL [facility] ERT [id number] Univers 16:27:00 22:26:00 CHARITY [facility] 2021-10-24 2021-10-24 Emergency X WALKER [facility] ERT [id number] Univers 16:27:00 22:26:00 CHARITY barbosa [facility] 2021-10-24 2021-10-24 Emergency Reilly Means [facility] 1.2.840. 114 [id number] Univers 16:27:00 22:26:00 Charity Mcallister 350.1.13.[address] [facility] 4.2.7.2.686 [facility] [id number] [address] 2021-10-23 2021-10-24 Emergency X THEEFORMERLY [facility] ERT [id number] Univers 20:22:00 02:57:00 [facility] 2021-10-23 2021-10-24 Emergency [facility] 1.2.941.382 [id number] Univers 20:22:00 02:57:00 [facility] 350.1.13.10 ity of [place] 4.2.7.2.686 [facility] [id number] [address] 2021-09-07 2021-09-07 Outpatient R SELF, [facility] [id number] Univers 08:00:00 08:00:00 GADIEL rodas [facility] 2021-09-07 2021-09-07 Outpatient R SELF, [facility] [id number] Univers 08:00:00 08:00:00 GADIEL rodas [facility] 2021-08-21 2021-08-21 Outpatient R EAST, [facility] [id number] Univers 10:45:00 10:45:00 SANTIAGO barbosa [facility] 2021-08-21 2021-08-21 Chute Tapper Santiago Cardenas [id number] Univers 10:45:00 10:45:00 Visit [facility] [id number] ity of 3.104.2.7 [place] .[id number] Medica l .8 [place] 2021-08-21 2021-08-21 Office Ronald, [id number] Univers 08:30:00 09:00:00 Visit Santiago [id number] ity of 3.104.2.7 [place] .[id number] Medica l .8 [place] 2021-08-21 2021-08-21 Office [facility] [id number] Univers 08:30:00 09:00:00 Visit Santiago [facility] [id number] i ty of CLINICS [id number] [facility] 089 Branch 2021-08-21 2021-08-21 Outpatient R [facility] [id number] Univers 08:30:00 08:30:00 SANTIAGO itStephens [facility] 2021-08-21 2021-08-21 Travel 1.2.840.1 1.2.890.763 9047 3865 Univers 00:00:00 00:00:00 13279.1.1 350.1.13.10 ity of 3.104.2.7 4.[place].3.698 [place] .3.574854 084.8 Medica l .8 [place] 2021-08-14 2021-08-14 Telephone East, 1.2.840.0 [id number] Univers 00:00:00 00:00:00 Santiago 81031.1.1 ity of 3.104.2.7 [place] .3.464470 Medica l .8 [place] 2021-08-13 2021-08-13 Telephone East, 1.2.840.2 [id number] Univers 00:00:00 00:00:00 Santiago 01481.1.1 ity of 3.104.2.7 [place] .3.605611 Medica l .8 [place] 2021-08-11 2021-08-11 Outpatient [facility] [id number] Univers 08:00:00 08:00:00 [facility] 2021-08-05 2021-08-05 Inpatient WINTER Leal OUTD [id number] [facility] 05:24:00 05:24:00 Mike 31 [facility] 2021-07-20 2021-07-20 Outpatient [facility] [id number] Univers 10:00:00 10:00:00 SANTIAGO barbosa [facility] 2021-07-14 2021-07-14 Office Pankaj, UTP 6400 1.2.840.114 13 [id number] [place] 08:45:00 09:34:[address] 350.1.13.58 Health 9.2.7.2.686 [id number] 1 2021-07-09 2021-07-09 Telephone Maryjanepour, UTP 6400 1.2.840.114 [id number] [place] 00:00:00 00:00:[address] 350.1.13.58 Health 9.2.7.2.686 [id number] 1 2021-07-09 2021-07-09 Telephone Maryjaneporay, UTP 6400 1.2.840.114 [id number] [place] 00:00:00 00:00:[address] 350.1.13.58 Health 9.2.7.2.686 [id number] 1 2021-07-03 2021-07-03 Outpatient R EAST, [facility] [id number] Univers 08:00:00 08:00:00 SANTIAGO barbosa [facility] 2021-06-17 2021-06-17 Inpatient RAUL Lund, HCACL INTE.02 [id number] [facility] 10:56:00 14:36:[address] [place] [address] 2021-06-15 2021-06-15 Outpatient R SELF, [facility] [id number] Univers 10:15:00 11:07:21 GADIEL rodas [facility] 2021-06-15 2021-06-15 Outpatient R SELF, [facility] [id number] Univers 10:15:00 10:15:00 GADIEL rodas [facility] 2021-06-15 2021-06-15 Outpatient R SELF, [facility] [id number] Univers 10:15:00 10:15:00 GADIEL vogel [facility] 2021-06-15 2021-06-15 Orders Doctor 1.2.840.8 [id number] Univers 00:00:00 00:00:00 Only Unassigned, 38437.1.1 ity of [place] 3.104.2.7 [place] .3.062588 Medica l .8 [place] 2021-06-15 2021-06-15 Travel 1.2.840.1 1.2.855.389 8784 7719 Univers 00:00:00 00:00:00 39572.1.1 350.1.13.10 ity of 3.104.2.7 4.[place]7.3.698 [place] .3.620236 084.8 Medica l .8 [place] 2021-06-11 2021-06-11 Refill [facility], UNIVERSIT 1.2.328.005 1228 9185 Univers 00:00:00 00:00:00 [facility] 350.1.13.10 i ty of CLINICS 4.[place].[address] [place] [address] [facility] 089 [place] 2021-06-11 2021-06-11 Refill [facility], 1.2.840.5 [id number] 185 Univers 00:00:00 00:00:00 Santiago 06726.1.1 ity of 3.104.2.7 [place] .3.075200 Medica l .8 [place] 2021-06-05 2021-06-05 Outpatient R [facility] [id number] Univers 09:00:00 09:00:00 SANTIAGO ity of [facility] 2021-06-02 2021-06-02 Telephone [facility], [facility] 1.2.840.114 90 [id number] Univers 00:00:00 00:00:00 [facility] 350.1.13.10 i ty of CLINICS 4[place].7.2.[address] [place] [address] [facility] 089 [place] 2021-06-02 2021-06-02 Telephone East, 1.2.840.9 [id number] 903 [id number] Univers 00:00:00 00:00:00 Santiago 48898.1.1 ity of 3.104.2.7 [place] .3.061743 Medica l .8 [place] 2021-05-29 2021-05-29 Telephone East, 1.2.840.3 [id number] 902 [id number] Univers 00:00:00 00:00:00 Santiago 47357.1.1 ity of 3.104.2.7 [place] .3.555352 Medica l .8 [place] 2021-05-29 2021-05-29 Telephone East, 1.2.840.4 [id number] 902 39282 Univers 00:00:00 00:00:00 [place] 96639.1.1 ity of 3.104.2.7 [place] .3.762539 Medica l .8 [place] 2021-05-25 2021-05-25 Outpatient R SELF, [facility] [id number] Univers 08:00:00 08:00:00 GADIEL rodas [facility] 2021-04-29 2021-04-29 Outpatient R LALA, [facility] [id number] Univers 08:00:00 08:00:00 NIKOLAI barbosa [facility] 2021-04-28 2021-04-28 Telephone Kinjal, [facility] 6400 1.2.840.114 [id number] [place] 00:00:00 00:00:[address] 350.1.13.58 Health 9.2.7.2.686 [id number] 1 2021-04-28 2021-04-28 Telephone Jailyn, 1.2.840.5 [id number] 21 [id number] Methodi 00:00:00 00:00:[address] 3.430.2.7 Hospit a .3.037126 l .8 2021-03-31 2021-03-31 Orders Meiariel, 1.2.840.1 [id number] 21 [id number] Methodi 00:00:00 00:00:00 Only Sarai Lieberman 65612.1.1 979 s t 3.430.2.7 Hospit a .3.816488 l .8 2021-03-30 2021-03-30 Outpatient R SELF, [facility] [id number] Univers 08:45:00 08:45:00 GADIEL rodas [facility] 2021-03-24 2021-03-24 Telephone Jailyn, 1.2.840.3 [id number] 21 [id number] Methodi 00:00:00 00:00:[address] 3.430.2.7 Hospit a .3.926242 l .8 2021-02-13 2021-02-13 Telephone Ronald, 1.2.840.5 [id number] 876 [id number] Univers 00:00:00 00:00:00 Santiago 56028.1.1 ity of 3.104.2.7 [place] .3.857697 Medica l .8 [place] 2021-01-28 2021-01-28 Outpatient R LALA, [facility] [id number] Univers 08:45:00 09:37:00 NIKOLAI ity of [facility] 2021-01-28 2021-01-28 Travel 1.2.840.1 1.2.358.278 8201 9777 Univers 00:00:00 00:00:00 90215.1.1 350.1.13.10 ity of 3.104.2.7 4.2[place]7.3.698 [place] .3.605564 084.8 Medica l .8 [place] 2021-01-19 2021-01-19 Telephone Prabhu, 1.2.840.1 [id number] [id number] Methodi 00:00:00 00:00:[address] 3.430.2.7 Hospit a .3.642476 l .8 2021-01-04 2021-01-04 Dmitry Bass, 1.2.840.1 [id number] 696 Univers 00:00:00 00:00:00 (Out) Dagoberto H 47179.1.1 ity of 3.104.2.7 [place] .3.583790 Medica l .8 [place] 2021-01-04 2021-01-04 Dmitry Bass, 1.2.840.6 [id number] 28956 696 Univers 00:00:00 00:00:00 (Out) Dagoberto H 79426.1.1 ity of 3.104.2.7 [place] .3.463895 Medica l .8 [place] 2021-01-03 2021-01-03 Letter Shelia, 1.2.840.0 [id number] 60154 790 Univers 00:00:00 00:00:00 (Out) Dagoberto H 09610.1.1 ity of 3.104.2.7 [place] .3.738603 Medica l .8 [place] 2021-01-03 2021-01-03 Letter Shelia, 1.2.840.0 [id number] 78731 790 Univers 00:00:00 00:00:00 (Out) Dagoberto H 03551.1.1 ity of 3.104.2.7 [place] .3.094051 Medica l .8 [place] 2021-01-02 2021-01-02 Outpatient R [facility] [id number] 786 Univers 13:40:00 13:40:00 ity of [facility] 2021-01-02 2021-01-02 Laboratory Cuba Franks 1.2.840.8 [id number] [id number] Univers 12:14:13 12:57:34 Only Lab, [facility] [place] 11443.1.1 ity of 3.104.2.7 [place] .3.883994 Medica l .8 [place] 2021-01-02 2021-01-02 Laboratory Cuba Franks 1.2.840.7 [id number] [id number] Univers 12:14:13 12:57:34 Only Lab, [facility] [place] 23658.1.1 ity of 3.104.2.7 [place] .3.080535 Medica l .8 [place] 2021-01-02 2021-01-02 Travel 1.2.840.1 1.2.080.549 8550 2306 Univers 00:00:00 00:00:00 28084.1.1 350.1.13.10 ity of 3.104.2.7 4.2.7.3.698 [place] .3.598100 084.8 Medica l .8 [place] 2021-01-02 2021-01-02 Letter Doctor 1.2.840.2 [id number] 86920 948 Univers 00:00:00 00:00:00 (Out) Unassigned, 95468.1.1 ity of [place] 3.104.2.7 [place] .3.332414 Medica l .8 [place] 2021-01-02 2021-01-02 Letter Doctor 1.2.840.9 [id number] 01367 946 Univers 00:00:00 00:00:00 (Out) Unassigned, 75751.1.1 ity of [place] 3.104.2.7 [place] .3.050746 Medica l .8 [place] 2021-01-02 2021-01-02 Travel 1.2.840.1 1.2.903.759 4108 2306 Univers 00:00:00 00:00:00 14090.1.1 350.1.13.10 ity of 3.104.2.7 4.2.7.3.698 [place] .3.287499 084.8 Medica l .8 [place] 2021-01-02 2021-01-02 Letter Doctor 1.2.840.2 [id number] 80351 948 Univers 00:00:00 00:00:00 (Out) Unassigned, 70099.1.1 ity of [place] 3.104.2.7 [place] .3.657275 Medica l .8 [place] 2021-01-02 2021-01-02 Letter Doctor 1.2.840.1 [id number] 19082 946 Univers 00:00:00 00:00:00 (Out) Unassigned, 96049.1.1 ity of [place] 3.104.2.7 [place] .3.115334 Medica l .8 Branch 2020-12-22 2020-12-22 Telephone Beltran, 1.2.840.6 [id number] 862 30857 Univers 00:00:00 00:00:00 Robbi Hairston 07843.1.1 i ty of 3.104.2.7 [place] .3.757971 Medica l .8 Branch 2020-12-22 2020-12-22 Telephone Beltran, 1.2.840.9 [id number] 862 79440 Univers 00:00:00 00:00:00 Robbi R 55271.1.1 i ty of 3.104.2.7 [place] .3.059269 Medica l .8 [place] 2020-12-12 2020-12-12 Office Hematpour, UTP 6400 1.2.840.114 12 [id number] [place] 07:42:02 08:18:[address] 350.1.13.58 Health 9.2.7.2.686 [id number] 1 2020-12-12 2020-12-12 Office Hematpour, UTP 6400 1.2.840.114 12 [id number] 07:42:02 08:18:[address] 350.1.13.58 9.2.7.2.686 871.6398121 1 2020-12-09 2020-12-09 Telephone Carol Ann, 1.2.840.1 [id number] Methodi 00:00:00 00:00:00 Sarai Corbin. 60329.1.1 316 s t 3.430.2.7 Hospit a .3.997959 l .8 2020-12-08 2020-12-08 [facility], 1.2.840.1 [id number] 2100 [id number] Methodi 12:35:54 23:59:00 Encounter Ray 68077.1.[address] 3.430.2.7 Hospit a .3.641849 l .8 2020-12-08 2020-12-08 [facility], 1.2.840.1 [id number] 36229 57763 Methodi 17:25:00 17:30:[address] 3.430.2.7 Hospit a .3.205722 l .8 2020-12-08 2020-12-08 [facility], 1.2.840.1 [id number] 29269 62989 Methodi 10:30:00 11:39:56 Visit Ray [address]113.1.[address] 3.430.2.7 Hospit a .3.819669 l .8 2020-12-08 2020-12-08 Travel 1.2.840.1 1.2.621.790 5653 755853 Methodi 00:00:00 00:00:[address] 3.430.2.7 0.2.7.3.698 Ho spita .3.981351 084.8 l .8 2020-12-02 2020-12-02 Chute Tapper Santiago Cradenas 1.2.840.1 [id number] Univers 10:20:06 10:36:19 Visit [facility] 01764.1.1 ity of 3.104.2.7 [place] .3.068603 Medica l .8 [place] 2020-12-02 2020-12-02 Chute Tapper Santiago Cardenas 1.2.840.1 [id number] [facility] 10:20:06 10:36:19 Visit [facility] 62699.1.1 ity of 3.104.2.7 [place] .3.511896 Medica l .8 [place] 2020-12-02 2020-12-02 Chute Tapper [facility] UNIVERSIT 1.2.840.114 8 [id number] 10:20:06 10:36:19 Visit [facility] 350.1.13.10 CLINICS 4.2.7.2.686 837.0665921 316 2020-12-02 2020-12-02 Office Ronald, 1.2.840.2 [id number] 20115 528 Univers 08:31:37 09:01:37 Visit Santiago 16211.1.1 ity of 3.104.2.7 [place] .3.301420 Medica l .8 [place] 2020-12-02 2020-12-02 Outpatient R RONALD [facility] [id number] Univers 09:00:00 09:00:00 SANTIAGO barbosa of [facility] 2020-11-25 2020-11-25 Office Beltran, 1.2.840.6 [id number] 47103 865 Univers 11:06:30 11:58:14 Visit Robbi Hairston 95701.1.1 i ty of 3.104.2.7 [place] .3.815686 Medica l .8 [place] 2020-11-25 2020-11-25 Office Devin, 1.2.840.2 [id number] 31864 865 Univers 11:06:30 11:58:14 Visit Robbi Hairston 39952.1.1 i ty of 3.104.2.7 [place] .3.572241 Medica l .8 [place] 2020-11-25 2020-11-25 [facility] 1.2.840.114 [id number] 11:06:30 11:58:14 Visit Robbi Hairston OVER THE ROAD DRIVER 350.1.13.10 REGIONAL 4.2.7.2.686 MATERNAL [id number] & CHILD [address] [place] [address] 2020-11-25 2020-11-25 Outpatient R [facility] [id number] Univers 11:00:00 11:00:00 ity of [facility] 2020-11-25 2020-11-25 Telephone Devin, 1.2.840.2 [id number] 855 [id number] Univers 00:00:00 00:00:00 Robbi Hairston 71691.1.1 i ty of 3.104.2.7 [place] .3.588776 Medica l .8 [place] 2020-11-25 2020-11-25 Refill East, 1.2.840.1 [id number] 22396 592 Univers 00:00:00 00:00:00 Santiago 59765.1.1 ity of 3.104.2.7 [place] .3.436094 Medica l .8 [place] 2020-11-25 2020-11-25 Travel 1.2.840.1 1.2.253.889 3739 0247 Univers 00:00:00 00:00:00 36940.1.1 350.1.13.10 ity of 3.104.2.7 4.2.7.3.698 [place] .3.932999 084.8 Medica l .8 [place] 2020-11-25 2020-11-25 Orders Doctor 1.2.840.3 [id number] 93784 064 Univers 00:00:00 00:00:00 Only Unassigned, 52259.1.1 ity of [place] 3.104.2.7 [place] .3.985836 Medica l .8 [place] 2020-11-25 2020-11-25 Telephone Beltran, 1.2.840.6 [id number] 855 84512 Univers 00:00:00 00:00:00 Robbi R 26866.1.1 i ty of 3.104.2.7 [place] .3.430186 Medica l .8 [place] 2020-11-25 2020-11-25 Refill [facility], 1.2.840.5 [id number] 83040 592 Univers 00:00:00 00:00:00 Santiago 17730.1.1 ity of 3.104.2.7 [place] .3.071263 Medica l .8 [place] 2020-11-25 2020-11-25 Travel 1.2.840.1 1.2.592.002 5280 0247 Univers 00:00:00 00:00:00 48027.1.1 350.1.13.10 ity of 3.104.2.7 4.2.7.3.698 [place] .3.329003 084.8 Medica l .8 [place] 2020-11-25 2020-11-25 Orders Doctor 1.2.840.8 [id number] 82891 064 Univers 00:00:00 00:00:00 Only Unassigned, 06768.1.1 ity of [place] 3.104.2.7 [place] .3.346804 Medica l .8 [place] 2020-11-25 2020-11-25 Formerly [facility] 1.2.339.442 2088 4592 00:00:00 00:00:00 [facility] 350.1.13.10 CLINICS 4.2.7.2.686 318.2605040 089 2020-11-25 2020-11-25 [facility] 1.2.462.874 5742 0821 00:00:00 00:00:[address] DRIVER 350.1.13.10 REGIONAL 4.2.7.2.686 MATERNAL 058.5513247 & CHILD [address] [place] [address] 2020-11-14 2020-11-14 Abstract Clark, 1.2.840.1 [id number] 70166 41387 Methodi 00:00:00 00:00:[address] 3.430.2.7 Hospit a .3.505234 l .8 2020-11-14 2020-11-14 Telephone Clark, 1.2.840.1 [id number] 2100 634978 Methodi 00:00:00 00:00:[address] 3.430.2.7 Hospit a .3.293890 l .8 2020-11-12 2020-11-12 Outpatient [facility] [id number] Univers 08:30:00 08:30:00 SANTIAGO ity [facility] 2020-11-07 2020-11-07 Telephone Agustina Ortiz 6400 1.2.840.11 4 [id number] [place] 00:00:00 00:00:[address] 350.1.13.58 Health 9.2.7.2.686 [id number] 1 2020-11-07 2020-11-07 Telephone KIMBERLEY Ortiz 6400 1.2.840.114 124 [id number] 00:00:00 00:00:[address] 350.1.13.58 9.2.7.2.686 155.0088972 1 2020-10-31 2020-10-31 Office HematpoKIMBERLEY bell 6400 1.2.840.114 12 [id number] [place] 07:54:00 09:45:[address] 350.1.13.58 Health 9.2.7.2.686 [id number] 1 2020-10-30 2020-10-30 Abstract Rody Maguire UTP 6400 1.2.840.1 14 [id number] [place] 00:00:00 00:00:[address] 350.1.13.58 Health 9.2.7.2.686 [id number] 1 2020-10-29 2020-10-29 Refill East, 1.2.840.0 [id number] 96777 400 Univers 00:00:00 00:00:00 Santiago 71779.1.1 ity of 3.104.2.7 [place] .3.439815 Medica l .8 Branch 2020-10-29 2020-10-29 Refill East, 1.2.840.5 [id number] 28204 400 Univers 00:00:00 00:00:00 Santiago 19935.1.1 ity of 3.104.2.7 [place] .3.756987 Medica l .8 Branch 2020-10-27 2020-10-27 Telephone Jailyn, 1.2.840.4 [id number] 21 [id number] Methodi 00:00:00 00:00:[address] 3.430.2.7 Hospit a .3.827536 l .8 2020-10-24 2020-10-24 Telephone Clark, 1.2.840.1 [id number] 2100 360889 Methodi 00:00:00 00:00:[address] 3.430.2.7 Hospit a .3.806846 l .8 2020-10-22 2020-10-22 Outpatient R SELF, [facility] [id number] 868 Univers 13:00:00 13:00:00 GADIEL rodas [facility] 2020-10-22 2020-10-22 Travel 1.2.840.1 1.2.088.061 4503 3839 Univers 00:00:00 00:00:00 83978.1.1 350.1.13.10 ity of 3.104.2.7 4.2.7.3.698 [place] .3.723444 084.8 Medica l .8 Branch 2020-10-22 2020-10-22 Travel 1.2.840.1 1.2.118.362 4591 3839 Univers 00:00:00 00:00:00 98458.1.1 350.1.13.10 ity of 3.104.2.7 4.2.7.3.698 [place] .3.197941 084.8 Medica l .8 Branch 2020-10-13 2020-10-13 Outpatient R RODO, [facility] [id number] 107 Univers 08:45:00 08:45:00 GADIEL barbosa o f [facility] 2020-10-06 2020-10-12 Telemedici [facility], 1.2.840.1 [id number] 21 [id number] Methodi 15:30:00 00:08:46 ne Ray 33882.1.[address] 3.430.2.7 Hospit a .3.706391 l .8 2020-09-30 2020-09-30 [facility], 1.2.840.9 [id number] Methodi 00:00:00 00:00:[address] 3.430.2.7 Hospit a .3.008190 l .8 2020-09-21 2020-09-21 [facility] 1.2.840.1 1.2.468.760 7402 437233 Methodi 00:00:00 00:00:[address] 3.430.2.7 0.2.7.3.698 Ho spita .3.599597 084.8 l .8 2020-09-06 2020-09-06 [facility] 1.2.840.1 [id number] 16222 19945 Methodi 17:42:30 23:59:[address] 3.430.2.7 Hospit a .3.929053 l .8 2020-09-06 2020-09-06 [facility], 1.2.840.1 [id number] 2099 [id number] Methodi 16:50:00 17:41:00 Encounter Ray [address]177.1.[address] 3.430.2.7 Hospit a .3.357277 l .8 2020-09-05 2020-09-05 [facility], 1.2.840.1 [id number] 2100 539443 Methodi 09:17:00 19:45:00 Encounter Ray [address]673.1.[address] 3.430.2.7 Hospit a .3.580296 l .8 2020-09-05 2020-09-05 Surgery Chihara, 1.2.840.1 [id number] 88164 98362 Methodi 11:30:00 13:15:[address] 3.430.2.7 Hospit a .3.032330 l .8 2020-09-05 2020-09-05 Anesthesia Remigio, 1.2.840.1 [id number] 895 [id number] Methodi 11:27:00 12:20:00 Event Johnathanthi 23328.1.1 243 s t V. 3.430.2.7 Hospit a .3.607697 l .8 2020-09-05 2020-09-05 Travel 1.2.840.1 1.2.213.544 9973 859574 Methodi 00:00:00 00:00:[address] 3.430.2.7 0.2.7.3.698 Ho spita .3.912676 084.8 l .8 2020-09-04 2020-09-04 Telephone Meisenbach, 1.2.840.1 [id number] Methodi 00:00:00 00:00:00 Sarai M. 99800.1.1 762 s t 3.430.2.7 Hospit a .3.786970 l .8 2020-09-02 2020-09-02 Telephone Meisenbach, 1.2.840.5 [id number] Methodi 00:00:00 00:00:00 Sarai M. 41839.1.1 344 s t 3.430.2.7 Hospit a .3.714712 l .8 2020-08-29 2020-08-30 Bedded [facility] [id number] 275 [facility] 10:20:00 14:10:00 Outpatient [facility] 00 [facility] 2020-08-29 2020-08-30 Outpatient HEMATPOUR, [facility] CAR 7500 [facility] 05:20:00 09:10:00 REGINAASH 2020-08-06 2020-08-06 Office [place], 1.2.840.3 [id number] 416 Univers 08:03:23 09:17:49 Visit Santiago 38996.1.1 ity of 3.104.2.7 [place] .3.439343 Medica l .8 [place] 2020-08-06 2020-08-06 Outpatient R EAST, [facility] [id number] Univers 08:30:00 08:30:00 SANTIAGO ity of [facility] 2020-07-14 2020-07-14 Outpatient R SELF, [facility] [id number] 155 Univers 09:30:00 09:30:00 GADIEL barbosa o [facility] 2020-07-14 2020-07-14 Travel 1.2.840.1 1.2.033.545 8334 2575 Univers 00:00:00 00:00:00 85935.1.1 350.1.13.10 ity of 3.104.2.7 4.2.7.3.698 [place] .3.882122 084.8 Medica l .8 [place] 2020-07-14 2020-07-14 Orders Doctor 1.2.840.3 [id number] 309 Univers 00:00:00 00:00:00 Only Unassigned, 89047.1.1 ity of [place] 3.104.2.7 [place] .3.187144 Medica l .8 [place] 2020-06-16 2020-06-16 Outpatient R SELF, [facility] [id number] 239 Univers 08:00:00 08:00:00 GADIEL barbosa o f [facility] 2020-06-06 2020-06-06 Telephone Ronald, 1.2.840.8 [id number] 809 [id number] Univers 00:00:00 00:00:00 Santiago 83877.1.1 ity of 3.104.2.7 [place] .3.715815 Medica l .8 [place] 2020-06-04 2020-06-04 Chute Tapper [place] Cardenas 1.2.840.1 [id number] Univers 09:31:58 09:40:12 Visit [facility] 10297.1.1 ity of 3.104.2.7 [place] .3.698435 Medica l .8 [place] 2020-06-04 2020-06-04 Office [facility], [facility] 1.2.808.383 [id number] Univers 08:13:41 09:28:25 Visit [place] [facility] 350.1.13.10 i ty of [place] [id number] [facility] porfirio 089 Branch 2020-06-04 2020-06-04 Outpatient R [facility] [id number] Univers 08:30:00 08:30:00 [place] ity of [facility] 2020-06-04 2020-06-04 Orders Doctor 1.2.840.1 [id number] Univers 00:00:00 00:00:00 Only Unassigned, 65846.1.1 ity of [place] 3.104.2.7 [place] .3.090702 Medica l .8 [place] 2020-05-19 2020-05-19 Telephone [place], 1.2.840.8 [id number] Univers 00:00:00 00:00:00 [place] 66818.1.1 ity of 3.104.2.7 [place] .3.173239 Medica l .8 [place] 2020-04-24 2020-04-24 Telephone [place], 1.2.840.1 [id number] Univers 00:00:00 00:00:00 [place] 88643.1.1 ity of 3.104.2.7 [place] .3.636991 Medica l .8 [place] 2020-04-14 2020-04-14 Outpatient R [facility] [id number] Univers 09:00:00 09:00:00 [place] ity of [facility] 2020-04-14 2020-04-14 Telephone [place], 1.2.840.9 [id number] Univers 00:00:00 00:00:00 [place] 17228.1.1 ity of 3.104.2.7 [place] .3.474227 Medica l .8 [place] 2020-03-31 2020-03-31 Outpatient R EAST, [facility] [id number] Univers 08:30:00 08:30:00 [place] ity of [facility] 2020-03-03 2020-03-03 Outpatient R SELF, [facility] [id number] Univers 08:00:00 08:00:00 GADIEL barbosa o f [facility] 2020-03-03 2020-03-03 Outpatient R SELF, [facility] [id number] Univers 08:00:00 08:00:00 GADIEL barbosa o f [facility] 2020-03-03 2020-03-03 Travel 1.2.840.1 1.2.401.157 [id number] Univers 00:00:00 00:00:00 48293.1.1 350.1.13.10 ity of 3.104.2.[place]3.698 [place] .3.376101 084.8 Medica l .8 [place] 2020-02-06 2020-02-06 Telephone [place], 1.2.840.2 [id number] Univers 00:00:00 00:00:00 [place] 55077.1.1 ity of 3.104.2.7 [place] .3.239793 Medica l .8 [place] 2020-01-26 2020-01-26 Emergency Caridad, 1.2.840.8 [id number] Univers 10:03:00 13:05:00 Cynise 02809.1.1 ity of 3.104.2.7 [place] .3.785090 Medica l .8 [place] 2020-01-26 2020-01-26 Travel 1.2.840.1 1.2.009.915 [id number] Univers 00:00:00 00:00:00 61881.1.1 350.1.13.10 ity of 3.104.2.[place]3.698 [place] .3.675959 084.8 Medica l .8 [place] 2020-01-25 2020-01-25 Outpatient R EAST, [facility] [id number] Univers 08:30:00 08:30:00 [place] ity of [facility] 2020-01-25 2020-01-25 Telemedici [place], 1.2.840.3 [id number] Univers 07:36:49 08:06:49 ne Visit [place] 00112.1.1 ity of 3.104.2.7 [place] .3.032050 Medica l .8 [place] 2020-01-16 2020-01-16 Outpatient R EAST, [facility] [id number] Univers 08:00:00 08:00:00 [place] ity [facility] 2020-01-16 2020-01-16 Telephone [place], 1.2.840.4 [id number] Univers 00:00:00 00:00:00 [place] 70396.1.1 ity of 3.104.2.7 [place] .3.786749 Medica l .8 [place] 2020-01-14 2020-01-14 Outpatient R SELF, [facility] [id number] Univers 08:00:00 08:00:00 GADIEL rodas [facility] 2019-12-31 2019-12-31 Outpatient R SELF, [facility] [id number] Univers 08:45:00 08:45:00 GADIEL rodas [facility] 2019-10-17 2019-10-17 Outpatient R EAST, [facility] [id number] Univers 08:30:00 08:30:00 [place] itcharlie [facility] 2019-10-12 2019-10-12 Outpatient R [place]AST, [facility] [id number] Univers 13:00:00 13:00:00 [place] ity [facility] 2019-10-12 2019-10-12 Telemedici [place], 1.2.840.5 [id number] Univers 07:38:30 08:08:30 ne Visit [place] 61070.1.1 ity of 3.104.2.7 [place] .3.675869 Medica l .8 [place] 2019-10-08 2019-10-08 Outpatient R SELF, [facility] [id number] Univers 10:15:00 10:15:00 GADIEL rodas [facility] 2019-10-03 2019-10-03 Case Assman, 1.2.840.3 [id number] Univers 00:00:00 00:00:00 Management Michael Corbin 71130.1.1 i ty of 3.104.2.7 [place] .3.740728 Medica l .8 [place] 2019-09-27 2019-09-27 Telephone East, 1.2.840.5 [id number] Univers 00:00:00 00:00:00 [place] 49505.1.1 ity of 3.104.2.7 [place] .3.919020 Medica l .8 [place] 2019-09-04 2019-09-04 Refill East, 1.2.840.7 [id number] Univers 00:00:00 00:00:00 [place] 76824.1.1 ity of 3.104.2.7 [place] .3.743580 Medica l .8 [place] 2019-07-24 2019-07-24 Outpatient R [facility] [id number] Univers 08:30:00 08:30:00 [place] ity [facility]ly [facility] 2019-07-17 2019-07-17 Outpatient R [facility] [id number] Univers 10:00:00 10:00:00 [place] ity [facility]ly [facility] 2019-06-15 2019-06-15 Telephone East, 1.2.840.4 [id number] Univers 00:00:00 00:00:00 [place] 22074.1.1 ity of 3.104.2.7 [place] .3.945654 Medica l .8 [place] 2019-06-13 2019-06-13 Telephone Team, Rust 1.2.840.9 [id number] Univers 00:00:00 00:00:00 Health 68818.1.1 [place].7 [place] .3.463985 Medica l .8 [place] 2019-05-10 2019-05-10 Refill East, 1.2.840.9 [id number] Univers 00:00:00 00:00:00 [place] 35578.1.1 ity of 3.104.2.7 [place] .3.628538 Medica l .8 [place] 2019-05-09 2019-05-09 Refill Ronald, 1.2.840.5 [id number] Univers 00:00:00 00:00:00 [place] 15519.1.1 ity of 3.104.2.7 [place] .3.007128 Medica l .8 [place] 2019-04-30 2019-04-30 Outpatient R [facility] [id number] Univers 10:15:00 10:33:05 GADIEL barbosa o f [facility] 2019-04-18 2019-04-18 Chute Tapper [place] Cardenas 1.2.840.1 [id number] Univers 10:00:39 10:44:31 Visit [facility] 84107.1.1 ity of 3.104.2.7 [place] .3.114394 Medica l .8 [place] 2019-04-18 2019-04-18 Outpatient R RONALD [facility] [id number] Univers 10:00:00 10:44:31 [place] ity of [facility] 2019-04-18 2019-04-18 Office Ronald, 1.2.840.1 [id number] Univers 08:27:44 09:53:27 Visit [place] 21089.1.1 ity of 3.104.2.7 [place] .3.782058 Medica l .8 [place] 2019-04-18 2019-04-18 Orders Doctor 1.2.840.4 [id number] Univers 00:00:00 00:00:00 Only Unassigned, 20564.1.1 ity of [place] 3.104.2.7 [place] .3.900317 Medica l .8 [place] 2019-04-11 2019-04-11 Refill Ronald, 1.2.840.1 [id number] Univers 00:00:00 00:00:00 [place] 05889.1.1 ity of 3.104.2.7 [place] .3.884279 Medica l .8 [place] 2019-04-09 2019-04-09 Refill Ronald, 1.2.840.0 [id number] Univers 00:00:00 00:00:00 [place] 65750.1.1 ity of 3.104.2.7 [place] .3.860522 Medica l .8 [place] 2019-04-03 2019-04-03 Telephone Team, Rust 1.2.840.6 [id number] Univers 00:00:00 00:00:00 Health 49807.1.1 [place] .3.361009 Medica l .8 [place] 2019-03-27 2019-03-27 Telephone Self, 1.2.840.3 [id number] Univers 00:00:00 00:00:00 Gadiel 87358.1.1 ity of 3.104.2.7 [place] .3.848383 Medica l .8 [place] 2019-01-17 2019-01-17 Office Ronald, 1.2.840.8 [id number] Univers 07:37:21 10:32:51 Visit Santiago 27099.1.1 ity of 3.104.2.7 [place] .3.848179 Medica l .8 [place] 2019-01-04 2019-01-12 Office Eveline Hansen 1.2.840.9 [id number] Univers 11:19:32 11:08:05 Visit Mariela 20369.1.1 ity of 3.104.2.7 [place] .3.907107 Medica l .8 [place] 2019-01-10 2019-01-10 Telephone Stanislav, 1.2.840.7 [id number] Univers 00:00:00 00:00:00 Eladio Mabel 87354.1.1 ity of 3.104.2.7 [place] .3.985565 Medica l .8 [place] 2018-12-18 2018-12-18 Office Geraldine, 1.2.840.4 [id number] Univers 08:48:45 09:13:43 Visit Leyda 83853.1.1 it y of 3.104.2.7 [place] .3.647668 Medica l .8 [place] 2018-10-30 2018-10-30 Telephone Ronald, 1.2.840.8 [id number] Univers 00:00:00 00:00:00 [place] 92117.1.1 ity of 3.104.2.7 [place] .3.974017 Medica l .8 [place] 2018-10-23 2018-10-23 Orders Doctor 1.2.840.2 [id number] Univers 00:00:00 00:00:00 Only Unassigned, 14287.1.1 ity of [place] 3.104.2.7 [place] .3.197480 Medica l .8 [place] 2018-10-23 2018-10-23 Nurse Selvin, 1.2.840.5 [id number] Univers 00:00:00 00:00:00 Triage Stefanie 70060.1.1 ity of 3.104.2.7 [place] .3.631512 Medica l .8 [place] 2018-10-23 2018-10-23 Telephone Self, 1.2.840.1 [id number] Univers 00:00:00 00:00:00 Gadiel 53343.1.1 ity of 3.104.2.7 [place] .3.714976 Medica l .8 [place] 2018-10-20 2018-10-20 Telephone Self, 1.2.840.0 [id number] Univers 00:00:00 00:00:00 Gadiel 32950.1.1 ity of 3.104.2.7 [place] .3.933502 Medica l .8 [place] Results Test Description Test Time Test Comments Results Result Comments Source COMP. METABOLIC PANEL (50287) 2022-05-06 22:42:55 Test Item Value Reference Range Interpretation Comme nts NA (test code = 0328170927) 137 mmol/L 135-145 K (test code = 5187364515) 3.2 mmol/L 3.5-5.0 L CL (test code = 0326939642) 100 mmol/L 98-108 CO2 TOTAL (test code = 6153470451) 23 mmol/L 23-31 AGAP (test code = 3581676068) 2-16 BUN (test code = 8915818462) 41 mg/dL 7-23 H GLUCOSE (test code = 9838956490) 98 mg/dL 70-110 CREATININE (test code = 1.55 mg/dL 0.50-1.04 H 9402836014) TOTAL BILI (test code = 0.8 mg/dL 0.1-1.9 4931372451) CALCIUM (test code = 1704207169) 8.3 mg/dL 8.6-10.6 L T PROTEIN (test code = 6393060047) 6.9 g/dL 6.3-8.2 ALBUMIN (test code = 3116455775) 3.9 g/dL 3.5-5.0 ALK PHOS (test code = 1137352899) 89 U/L 34-122 ALTv (test code = 1742-6) 101 U/L 5-35 H AST(SGOT) (test code = 2747540402) 203 U/L 13-40 H eGFR (test code = 3796853609) mL/min/1.73m2 KYLE (test code = KYLE) Association [...] tests). Lab Interpretation (test code = Abnormal 61856-9) [facility] WITH [id number] 22:33:52 Test Item Value Reference Range Interpretation [...] RDW-SD (test code = 46.3 fL 39.0-49.9 25904-9) RDW-CV (test code = 13.5 % 12.0-15.5 788-0) PLT (test code = See_Comment L [Automated 777-3) message] The sy stem which generated this result transmitted reference range : 166 - 358 10*3/ ?L. The reference r abbey was not used to interpret this result as normal/abnormal . MPV (test code = 9.5 fL 9.5-12.9 54205-3) NRBC/100 WBC (test See_Comment [Automat ed code = 6843952233) message] The system which generated this result transmitted reference range : 0.0 - 10.0 /100 WBCs. The refer ence range was not u sed to interpret th is result as normal/abnormal . NRBC x10^3 (test code See_Comment [Auto mated = 9952473793) message] The s ystem which generated this result transmitted reference range : 10*3/?L. The reference range was not used to interpret this result as normal/abnormal . GRAN MAT (NEUT) % 58.3 % (test code = 770-8) IMM GRAN % (test code 0.80 % = 9117318517) LYMPH % (test code = 28.1 % 736-9) MONO % (test code = 12.0 % 5905-5) EOS % (test code = 0.5 % 713-8) BASO % (test code = 0.3 % 706-2) GRAN MAT x10^3(ANC) 2.29 10*3/uL 1.88-7.09 (test code = 9474216257) IMM GRAN x10^3 (test 0.03 10*3/uL 0.00-0.06 code = 8008752681) LYMPH x10^3 (test code 1.10 10*3/uL 1.32-3.29 L = 731-0) MONO x10^3 (test code 0.47 10*3/uL 0.33-0.92 = 742-7) EOS x10^3 (test code = 0.03-0.39 L 711-2) BASO x10^3 (test code 0.01-0.07 = 704-7) Lab Interpretation Abnormal (test code = 78193-4) [facility] METABOLIC PANEL (NA, K, CL, CO2, GLUCOSE, BUN, CREATININE, CA)2022-04-22 21:43:42 Test Item Value Reference Range Interpretation Comments NA (test code = 142 mmol/L 135-145 9135436599) K (test code = 3.5 mmol/L 3.5-5.0 5747653118) CL (test code = 106 mmol/L 98-108 7347157685) CO2 TOTAL (test code = 26 mmol/L 23-31 1293279855) AGAP (test code = 2-16 0900975917) BUN (test code = 29 mg/dL 7-23 H 2018691372) GLUCOSE (test code = 84 mg/dL 70-110 6366270968) CREATININE (test code = 1.16 mg/dL 0.50-1.04 H 0667497830) CALCIUM (test code = 8.2 mg/dL 8.6-10.6 L 4189241476) eGFR (test code = mL/min/1.73m2 1143985762) KYLE (test code = KYLE) Association of [...] tests). Lab Interpretation Abnormal (test code = 39491-3) [facility] WITH [id number] 21:33:01 Test Item Value Reference Range Interpretation Comments WBC (test code = See_Comment [Automated 5222-2) message] The sy stem which generated this result transmitted reference range : 4.30 - 11.10 10*3/?L. The reference range was not used to interpret this result as normal/abnormal . RBC (test code = See_Comment L [Automated 399-8) message] The sy stem which generated this [...] (test code = 50.7 fL 39.0-49.9 H 15893-9) RDW-CV (test code = 14.6 % 12.0-15.5 788-0) PLT (test code = See_Comment L [Automated 777-3) message] The sy stem which generated this result transmitted reference range : 166 - 358 10*3/ ?L. The reference r abbey was not used to interpret this result as normal/abnormal . MPV (test code = 8.8 fL 9.5-12.9 L 94937-3) NRBC/100 WBC (test See_Comment [Automat ed code = 4624446342) message] The system which generated this result transmitted reference range : 0.0 - 10.0 /100 WBCs. The refer ence range was not u sed to interpret th is result as normal/abnormal . NRBC x10^3 (test code See_Comment [Auto mated = 7373867185) message] The s ystem which generated this result transmitted reference range : 10*3/?L. The reference range was not used to interpret this result as normal/abnormal . GRAN MAT (NEUT) % 70.9 % (test code = 770-8) IMM GRAN % (test code 0.50 % = 8542031816) LYMPH % (test code = 17.4 % 736-9) MONO % (test code = 9.0 % 5905-5) EOS % (test code = 1.7 % 713-8) BASO % (test code = 0.5 % 706-2) GRAN MAT x10^3(ANC) 4.60 10*3/uL 1.88-7.09 (test code = 4249650333) IMM GRAN x10^3 (test 0.03 10*3/uL 0.00-0.06 code = 9816240624) LYMPH x10^3 (test code 1.13 10*3/uL 1.32-3.29 L = 731-0) MONO x10^3 (test code 0.58 10*3/uL 0.33-0.92 = 742-7) EOS x10^3 (test code = 0.11 10*3/uL 0.03-0.39 711-2) BASO x10^3 (test code 0.03 10*3/uL 0.01-0.07 = 704-7) Lab Interpretation Abnormal (test code = 72729-0) [facility] CULTURE [id number] 06:01:07 Test Item Value Reference Range Interpretation Comments Blood Culture-Aerobic No organisms No growth Previo us (test code = 66574-1) isolated prelim inary verified result was Culture [...] Culture-Anaerobic isolated preliminar y (test code = 98380-1) verifi ed result was Culture In Progress [...] CDT Lab Interpretation Normal (test code = 10949-0) [facility] CULTURE [id number] 06:01:07 Test Item Value Reference Range Interpretation Comments Blood Culture-Aerobic No organisms No growth Previo us (test code = 23256-9) isolated prelim inary verified result was Culture [...] Culture-Anaerobic isolated preliminar y (test code = 09455-9) verifi ed result was Culture In Progress [...] CDT Lab Interpretation Normal (test code = 54984-5) [facility] [id number] 06:01:07 Test Item Value Reference Range Interpretation Comments Blood Culture-Aerobic No organisms No growth Previo us (test code = 32240-5) isolated prelim inary verified result was Culture [...] Culture-Anaerobic isolated preliminar y (test code = 12902-1) verifi ed result was Culture In Progress [...] CDT Lab Interpretation Normal (test code = 73045-0) [facility] [id number] 10:49:10 Test Item Value Reference Range Interpretation Comments NT-proBNP (test code 2660 pg/mL See_Comment H [Autom ated = 0884086509) message] The system which generated this result transmitted reference range : <=125. The reference range was not used to interpret this result as normal/abnormal . KYLE (test code = KYLE) Biotin has been reported to cause a negative bias, interpret results relative to patient's use of biotin. Lab Interpretation Abnormal (test code = 15534-8) [facility] [id number] 10:49:10 Test Item Value Reference Range Interpretation Comments NT-proBNP (test code 2660 pg/mL See_Comment H [Autom ated = 0861645032) message] The system which generated this result transmitted reference range : <=125. The reference range was not used to interpret this result as normal/abnormal . KYLE (test code = KYLE) Biotin has been reported to cause a negative bias, interpret results relative to patient's use of biotin. Lab Interpretation Abnormal (test code = 45881-8) [facility] (NA, K, CL, CO2, GLUCOSE, BUN, CREATININE, CA)2022-02-15 10:44:07 Test Item Value Reference Range Interpretation Comments NA (test code = 134 mmol/L 135-145 L 9153356120) K (test code = 3.2 mmol/L 3.5-5 L 1029472368) CL (test code = 98 mmol/L 98-108 6677874552) CO2 TOTAL (test code = 27 mmol/L 23-31 6424925507) AGAP (test code = 2-16 7937680017) BUN (test code = 19 mg/dL 7-23 8822234380) GLUCOSE (test code = 102 mg/dL 70-110 1018657396) CREATININE (test code = 0.95 mg/dL 0.5-1.04 2818369148) CALCIUM (test code = 8.5 mg/dL 8.6-10.6 L 6642813994) eGFR (test code = mL/min/1.73m2 8370060984) KYLE (test code = KYLE) Association of [...] tests). Lab Interpretation Abnormal (test code = 05972-3) [facility] 10:44:07 Test Item Value Reference Range Interpretation Comments MAGNESIUM (test code = 6999603168) 1.8 mg/dL 1.7-2.4 Lab Interpretation (test code = Normal 68186-1) [facility] 10:44:07 Test Item Value Reference Range Interpretation Comments MAGNESIUM (test code = 4131825096) 1.8 mg/dL 1.7-2.4 Lab Interpretation (test code = Normal 26253-8) [facility] (NA, K, CL, CO2, GLUCOSE, BUN, CREATININE, CA)2022-02-15 10:44:07 Test Item Value Reference Range Interpretation Comments NA (test code = 134 mmol/L 135-145 L 0961937072) K (test code = 3.2 mmol/L 3.5-5.0 L 6904228289) CL (test code = 98 mmol/L 98-108 2033829310) CO2 TOTAL (test code = 27 mmol/L 23-31 5157844234) AGAP (test code = 2-16 8959244319) BUN (test code = 19 mg/dL 7-23 9343845863) GLUCOSE (test code = 102 mg/dL 70-110 0837091115) CREATININE (test code = 0.95 mg/dL 0.50-1.04 8475660497) CALCIUM (test code = 8.5 mg/dL 8.6-10.6 L 7393498394) eGFR (test code = mL/min/1.73m2 5789756253) KYLE (test code = KYLE) Association of [...] tests). Lab Interpretation Abnormal (test code = 70537-3) [facility] WITH [id number] 10:12:06 Test Item Value Reference Range Interpretation [...] RDW-SD (test code = 47.8 fL 39-49.9 93106-8) RDW-CV (test code = 15.2 % 12-15.5 788-0) PLT (test code = See_Comment L [Automated 777-3) message] The sy stem which generated this result transmitted reference range : 166 - 358 10*3/ ?L. The reference r abbey was not used to interpret this result as normal/abnormal . MPV (test code = 8.9 fL 9.5-12.9 L 06310-9) NRBC/100 WBC (test See_Comment [Automat ed code = 5356016494) message] The system which generated this result transmitted reference range : 0.0 - 10.0 /100 WBCs. The refer ence range was not u sed to interpret th is result as normal/abnormal . NRBC x10^3 (test code See_Comment [Auto mated = 0602321156) message] The s ystem which generated this result transmitted reference range : 10*3/?L. The reference range was not used to interpret this result as normal/abnormal . GRAN MAT (NEUT) % 65.9 % (test code = 770-8) IMM GRAN % (test code 0.30 % = 5345640517) LYMPH % (test code = 21.0 % 736-9) MONO % (test code = 10.1 % 5905-5) EOS % (test code = 2.4 % 713-8) BASO % (test code = 0.3 % 706-2) GRAN MAT x10^3(ANC) 2.49 10*3/uL 1.88-7.09 (test code = 7659698212) IMM GRAN x10^3 (test 0-0.06 code = 2447692015) LYMPH x10^3 (test code 0.79 10*3/uL 1.32-3.29 L = 731-0) MONO x10^3 (test code 0.38 10*3/uL 0.33-0.92 = 742-7) EOS x10^3 (test code = 0.09 10*3/uL 0.03-0.39 711-2) BASO x10^3 (test code 0.01-0.07 = 704-7) Lab Interpretation Abnormal (test code = 41873-6) [facility] WITH [id number] 10:12:06 Test Item Value Reference Range Interpretation [...] RDW-SD (test code = 47.8 fL 39.0-49.9 09815-3) RDW-CV (test code = 15.2 % 12.0-15.5 788-0) PLT (test code = See_Comment L [Automated 777-3) message] The sy stem which generated this result transmitted reference range : 166 - 358 10*3/ ?L. The reference r abbey was not used to interpret this result as normal/abnormal . MPV (test code = 8.9 fL 9.5-12.9 L 54869-5) NRBC/100 WBC (test See_Comment [Automat ed code = 5211269582) message] The system which generated this result transmitted reference range : 0.0 - 10.0 /100 WBCs. The refer ence range was not u sed to interpret th is result as normal/abnormal . NRBC x10^3 (test code See_Comment [Auto mated = 3957605276) message] The s ystem which generated this result transmitted reference range : 10*3/?L. The reference range was not used to interpret this result as normal/abnormal . GRAN MAT (NEUT) % 65.9 % (test code = 770-8) IMM GRAN % (test code 0.30 % = 3108152916) LYMPH % (test code = 21.0 % 736-9) MONO % (test code = 10.1 % 5905-5) EOS % (test code = 2.4 % 713-8) BASO % (test code = 0.3 % 706-2) GRAN MAT x10^3(ANC) 2.49 10*3/uL 1.88-7.09 (test code = 7188742160) IMM GRAN x10^3 (test 0.00-0.06 code = 5420437661) LYMPH x10^3 (test code 0.79 10*3/uL 1.32-3.29 L = 731-0) MONO x10^3 (test code 0.38 10*3/uL 0.33-0.92 = 742-7) EOS x10^3 (test code = 0.09 10*3/uL 0.03-0.39 711-2) BASO x10^3 (test code 0.01-0.07 = 704-7) Lab Interpretation Abnormal (test code = 92275-2) [facility] WITH [id number] 11:18:28 Test Item Value Reference Range Interpretation [...] RDW-SD (test code = 49.5 fL 39-49.9 54278-4) RDW-CV (test code = 15.5 % 12-15.5 788-0) PLT (test code = See_Comment L [Automated 777-3) message] The sy stem which generated this result transmitted reference range : 166 - 358 10*3/ ?L. The reference r abbey was not used to interpret this result as normal/abnormal . MPV (test code = 11.4 fL 9.5-12.9 98874-1) IPF % (test code = 8.7 % 1.3-7.7 H Platelet count 2467244052) measured by fluorescence method. NRBC/100 WBC (test See_Comment [Automat ed code = 5346446578) message] The system which generated this result transmitted reference range : 0.0 - 10.0 /100 WBCs. The refer ence range was not u sed to interpret th is result as normal/abnormal . NRBC x10^3 (test code See_Comment [Auto mated = 7789832309) message] The s ystem which generated this result transmitted reference range : 10*3/?L. The reference range was not used to interpret this result as normal/abnormal . GRAN MAT (NEUT) % 62.0 % (test code = 770-8) IMM GRAN % (test code 0.80 % = 2820822118) LYMPH % (test code = 22.2 % 736-9) MONO % (test code = 9.6 % 5905-5) EOS % (test code = 5.1 % 713-8) BASO % (test code = 0.3 % 706-2) GRAN MAT x10^3(ANC) 2.21 10*3/uL 1.88-7.09 (test code = 4706128437) IMM GRAN x10^3 (test 0.03 10*3/uL 0-0.06 code = 0098441414) LYMPH x10^3 (test code 0.79 10*3/uL 1.32-3.29 L = 731-0) MONO x10^3 (test code 0.34 10*3/uL 0.33-0.92 = 742-7) EOS x10^3 (test code = 0.18 10*3/uL 0.03-0.39 711-2) BASO x10^3 (test code 0.01-0.07 = 704-7) POLYCHROMASIA (test 2+ See_Comment [Automa arpit code = 05316-8) message] The system which generated this result [...] . Lab Interpretation Abnormal (test code = 30327-9) [facility] (NA, K, CL, CO2, GLUCOSE, BUN, CREATININE, CA)2022-02-13 10:39:07 Test Item Value Reference Range Interpretation Comments NA (test code = 136 mmol/L 135-145 7910641709) K (test code = 4.1 mmol/L 3.5-5 8768779157) CL (test code = 102 mmol/L 98-108 5754866657) CO2 TOTAL (test code = 27 mmol/L 23-31 7812031825) AGAP (test code = 2-16 7272961341) BUN (test code = 22 mg/dL 7-23 8087191374) GLUCOSE (test code = 94 mg/dL 70-110 8403356953) CREATININE (test code = 0.94 mg/dL 0.5-1.04 7723328971) CALCIUM (test code = 8.1 mg/dL 8.6-10.6 L 7598247325) eGFR (test code = mL/min/1.73m2 9233381959) KYLE (test code = KYLE) Association of [...] tests). Lab Interpretation Abnormal (test code = 05448-9) [facility] 01:50:10 Test Item Value Reference Range Interpretation Comments Height (test code = in 8534048213) Weight (test code = lbs 4729544826) Systolic BP (test code mmHg = 2494239092) Diastolic BP (test code mmHg = 9198026978) Heart Rate (test code = bpm 1961347841) BSA (test code = 1.85 m2 0727438202) IVS (test code = 1.22 cm 7596255858) Interventricular Septum 1.22 cm Diastolic Thickness by 2D (test code = 2765843) LVIDD (test code = 5.00 cm 8613579584) Left Ventricular End 117.9 mL Diastolic Volume by Teichholz Method (test code = 4590198) LVPWD (test code = 1.22 cm 0266402091) PW (test code = 1.22 cm 0.6-1.3 0777441609) EF(Teich) (test code = 74.60 % 5295236033) LVIDS (test code = 2.80 cm 6095252574) Left Ventricular End 29.9 mL Systolic Volume by Teichholz Method (test code = 9830128) FS (test code = 44 % 4055288491) EF - 2D (test code = 74.60 % 96867385) LVOT diameter (test 2.16 cm code = 0068791635) LVOT area (test code = 3.70 cm2 9522470392) Ao root diam (test code 3.40 cm = 7946900436) Aortic root (test code 3.4 cm = 3712442550) Ao root annulus (test 3.4 cm code = 8628825071) LA size (test code = 3.4 cm 6980318939) TR Peak Spencer (test code 330.0 cm/s = 5767780013) Triscuspid Valve mmHg Regurgitation Peak Gradient (test code = 4102611853) PV REGURGITATION PEAK mmHg GRADIENT (test code = 1315237928) PI dec slope (test code 137.20 cm/s2 = 4995242184) LAV(MOD-sp4) (test code 102.90 mL = 2725077238) MV Peak E Spencer (test 84.1 cm/s code = 0190540416) MV Peak A Spencer (test 40.1 cm/s code = 7410039963) E/A ratio (test code = ratio 4929194763) MV valve area p 1/2 3.70 cm2 method (test code = 8182179515) MV dec slope (test code 413.00 cm/s2 = 9115229322) MV P1/2t max spencer (test 83.70 cm/s code = 7388687872) MV Prop V (test code = 41.80 cm/s 9204892916) Tapse (test code = 1.83 cm 4491586954) LVOT stroke volume 96.90 cm3 (test code = 1015179062) LVOT peak spencer (test 125.5 cm/s code = 9126513981) LVOT mn grad (test code mmHg = 5056133978) AV LVOT peak gradient mmHg (test code = 9483055287) LVOT peak VTI (test 26.4 cm code = 4149600966) LV V1 mean (test code = 78.10 cm/s 2147988230) Aortic valve mean 103.7 cm/s velocity (test code = 8737973101) Ao peak spencer (test code 165.6 cm/s = 5248983914) Ao VTI (test code = 37.2 cm 9909007687) AV area by cont VTI 2.6 cm2 (test code = 1662846679) AV area peak spencer (test 2.8 cm2 code = 4850782755) Ao max PG (test code = 11.00 mm[Hg] 7405905153) AV peak gradient (test mmHg code = 4287338469) AV valve area (test 2.60 cm2 code = 2875401437) AV mean gradient (test mmHg code = 8651519997) LA Volume Index (BP) 55.2 mL/m2 (test code = 3246378982) LA volume (BP) (test 102.1 mL code = 6694996011) LAV(MOD-sp2) (test code 86.10 mL = 7009655956) A2C EF (test code = 61.20 % 7391965263) EF(sp2-el) (test code = 61.60 % 6461939271) SV(MOD-sp2) (test code 47.10 mL = 9213643827) LV Diastolic Volume 70.7 mL (BP) (test code = 3101100548) A4C EF (test code = 53.00 % 7808496172) EF(MOD-bp) (test code = 56.70 % 6155572279) EF(sp4-el) (test code = 53.90 % 1076052185) LV Systolic Volume (BP) 30.6 mL (test code = 7112872724) SV(MOD-bp) (test code = 40.10 mL 6970130020) SV(MOD-sp4) (test code 32.40 mL = 4980608063) SV(sp4-el) (test code = 33.10 mL 2957994311) EF (test code = 6910005717) Left Ventricular Stroke 40.1 mL Volume by 2-D Biplane-MOD (test code = 5530374) LV Diastolic Volume 38.2 mL/m2 Index (BP) (test code = 7581717913) LV Systolic Volume 16.5 mL/m2 Index (BP) (test code = 0040182251) Radiology Study observation (narrative) (test code = 95291-5) KYLE (test code = KYLE) ?Left?Ventricle: Left [...] 1.00The left ventricular wall motion is normal. [id number]01 Test Item Value Reference Interpretation Comments Range TROPONIN I (test See_Comment [Automated code = 6019468106) message] The system which generated this result [...] biotin. Lab Interpretation Normal (test code = 54589-0) [id number] 05:41:40 Test Item Value Reference Range Interpretation Comments NT-proBNP (test code 4250 pg/mL See_Comment H [Autom ated = 6915512832) message] The system which generated this result transmitted reference range : <=125. The reference range was not used to interpret this result as normal/abnormal . KYLE (test code = KYLE) Biotin has been reported to cause a negative bias, interpret results relative to patient's use of biotin. Lab Interpretation Abnormal (test code = 32547-3) [facility]RM[facility] [id number] 05:35:21 Test Item Value Reference Range Interpretation Comments APTT Patient (test See_Comment [Automat ed code = 3173-2) message] The system which generated this result transmitted reference range : 23 - 38 Seconds . The reference range was not used to interpr et this result as normal/abnormal . KYLE (test code = KYLE) The [facility] patient population mean normal value for aPTT is 30 seconds. Lab Interpretation Normal (test code = 81410-2) [facility] THRM[facility] [id number] 05:35:21 Test Item Value Reference Range Interpretation Comments APTT Patient (test See_Comment [Automat ed code = 3173-2) message] The system which generated this result transmitted reference range : 23 - 38 Seconds . The reference range was not used to interpr et this result as normal/abnormal . KYLE (test code = KYLE) The [facility] patient population mean normal value for aPTT is 30 seconds. Lab Interpretation Normal (test code = 73734-4) [facility] CampusPROTHROMBIN TIME / [id number] 05:33:21 Test Item Value Reference Range Interpretation [...] tions. Lab Interpretation (test Normal code = 42460-6) [facility]COMP[facility] METABOLIC PANEL (94896)2022-02-11 05:33:21 Test Item Value Reference Range Interpretation Comments NA (test code = 137 mmol/L 135-145 0915302925) K (test code = 4.3 mmol/L 3.5-5 8984873283) CL (test code = 103 mmol/L 98-108 4368369280) CO2 TOTAL (test code = 25 mmol/L 23-31 2293733513) AGAP (test code = 2-16 3977140055) BUN (test code = 19 mg/dL 7-23 1758331356) GLUCOSE (test code = 120 mg/dL 70-110 H 7861557290) CREATININE (test code = 1.15 mg/dL 0.5-1.04 H 9029529896) TOTAL BILI (test code = 0.9 mg/dL 0.1-1.1 6736401260) CALCIUM (test code = 8.9 mg/dL 8.6-10.6 8445500760) T PROTEIN (test code = 6.6 g/dL 6.3-8.2 3287477664) ALBUMIN (test code = 4.0 g/dL 3.5-5 4826107621) ALK PHOS (test code = 73 U/L 34-122 0794100663) ALTv (test code = 18 U/L 5-35 1742-6) AST(SGOT) (test code = 31 U/L 13-40 9768343025) eGFR (test code = mL/min/1.73m2 3008043142) KYLE (test code = KYLE) Association of [...] tests). Lab Interpretation Abnormal (test code = 23041-2) [facility]. METABOLIC PANEL (24346)2022-02-11 05:33:21 Test Item Value Reference Range Interpretation Comments NA (test code = 137 mmol/L 135-145 0777177232) K (test code = 4.3 mmol/L 3.5-5.0 3598697285) CL (test code = 103 mmol/L 98-108 0908254162) CO2 TOTAL (test code = 25 mmol/L 23-31 3367692923) AGAP (test code = 2-16 9973214102) BUN (test code = 19 mg/dL 7-23 5981324641) GLUCOSE (test code = 120 mg/dL 70-110 H 1657357413) CREATININE (test code = 1.15 mg/dL 0.50-1.04 H 4489626894) TOTAL BILI (test code = 0.9 mg/dL 0.1-1.3 4920892158) CALCIUM (test code = 8.9 mg/dL 8.6-10.6 7996811528) T PROTEIN (test code = 6.6 g/dL 6.3-8.2 6927218785) ALBUMIN (test code = 4.0 g/dL 3.5-5.0 4143120647) ALK PHOS (test code = 73 U/L 34-122 6631117102) ALTv (test code = 18 U/L 5-35 1742-6) AST(SGOT) (test code = 31 U/L 13-40 8253233203) eGFR (test code = mL/min/1.73m2 8192386524) KYLE (test code = KYLE) Association of [...] tests). Lab Interpretation Abnormal (test code = 79872-3) [facility] CampusPROT[facility] / [id number] 05:33:21 Test Item Value Reference Range Interpretation [...] tions. Lab Interpretation (test Normal code = 80557-0) [facility] WITH [id number] 05:14:37 Test Item Value Reference Range Interpretation Comments WBC (test code = See_Comment [Automated 7690-2) message] The sy stem which generated this [...] RDW-SD (test code = 47.9 fL 39-49.9 95581-0) RDW-CV (test code = 14.9 % 12-15.5 788-0) PLT (test code = See_Comment L [Automated 777-3) message] The sy stem which generated this result transmitted reference range : 166 - 358 10*3/ ?L. The reference r abbey was not used to interpret this result as normal/abnormal . MPV (test code = 9.1 fL 9.5-12.9 L 10970-6) NRBC/100 WBC (test See_Comment [Automat ed code = 8582601706) message] The system which generated this result transmitted reference range : 0.0 - 10.0 /100 WBCs. The refer ence range was not u sed to interpret th is result as normal/abnormal . NRBC x10^3 (test code See_Comment [Auto mated = 3098801286) message] The s ystem which generated this result transmitted reference range : 10*3/?L. The reference range was not used to interpret this result as normal/abnormal . GRAN MAT (NEUT) % 78.5 % (test code = 770-8) IMM GRAN % (test code 0.20 % = 1310444555) LYMPH % (test code = 11.6 % 736-9) MONO % (test code = 8.4 % 5905-5) EOS % (test code = 1.1 % 713-8) BASO % (test code = 0.2 % 706-2) GRAN MAT x10^3(ANC) 3.45 10*3/uL 1.88-7.09 (test code = 4447412524) IMM GRAN x10^3 (test 0-0.06 code = 6308188263) LYMPH x10^3 (test code 0.51 10*3/uL 1.32-3.29 L = 731-0) MONO x10^3 (test code 0.37 10*3/uL 0.33-0.92 = 742-7) EOS x10^3 (test code = 0.05 10*3/uL 0.03-0.39 711-2) BASO x10^3 (test code 0.01-0.07 = 704-7) Lab Interpretation Abnormal (test code = 78186-1) [facility] Coronavirus 2019 Umonqtl2558-18-40 18:08:00 Test Item Value Reference Range Interpretation [...] det ection of nucleic acids f rom eqaOFGO-DdW-8 v irus and diagnosis of SA RS-CoV-2 virusinfection. It is an Emergency Use Authorization ( EUA) testauthorized by the U.S. FDA. BASIC METABOLIC [id number] 09:37:00 Test Item Value Reference Range Interpretation [...] = 9.0 mg/dL 8.0-10.5 N CA) PROTHROMBIN [id number] 09:32:00 Test Item Value Reference Range Interpretation [...] (to prevent recurrent infar ct). 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 [facility] - XR CHEST 1 [id number] 00:00:00 [facility] : 1955 Sex: F FAX: Carmenza Kelly [phone] Bud: St: [facility] FAX: Mike Scales MD [phone] FAX: Bahman Chopra [phone] Name: LIO WATTS [facility] : 1955 Age/S: 66/F [address] [place] [address] Unit #: [id number] Loc: [place] [address] Phys: Bahman Chopra Acct: [id number] Dis Date: Status: ADM IN PHONE #: [phone] Exam Date: 06/17/2021 1320 FAX #: [phone] Reason: WATCHMAN EXAMS: CPT CODE: [id number] XR CHEST 1 V 15545 PROCEDURE INFORMATION: Exam: XR Chest Exam date [...] failure/volume loading. 2. Subsegmental atelectasis bilateral. at 9489 Reported and signed by: Lambert Vega M.D. CC: Carmenza Rahman DO; Mike Lund MD; Bahman Chopra Technologist: RT Taylor(R) Trnscrd Date/Time/By: 06/17/2021 (5528) : By: Susanna Orig Print D/T: S: 06/17/2021 (5216) PAGE 1 Signed ReportCOVID 19 Asymptomatic IH [...] high or waivedcomplexit y tests. BASIC METABOLIC [id number] 11:37:00 Test Item Value Reference Range Interpretation [...] code = 9.0 mg/dL 8.0-10.5 N CA) EYMFYPRDWS3082-31-29 11:37:00 Test Item Value Reference Range Interpretation Comments PREALBUMIN (test code = PREALB) 24.3 mg/dL 16.0-40.0 N PROTHROMBIN [id number] 11:03:00 Test Item Value Reference Range Interpretation [...] (to prevent recurrent infar ct). CBC W/AUTO ZOEK7734-17-79 10:59:00 Test Item Value Reference Range Interpretation [...] 3/uL 0.0-0.1 N NRBC#) - CHEST 2 [id number] 00:00:00 [facility] 1955 Sex: F FAX: Carmenza Kelly DO [phone] Bud: St: PRE FAX: Mike Scales MD [phone] Name: LIO WATTS [facility] : 1955 Age/S: 66/F [address] [place], [place] [address]vd Unit #: [id number] Loc: [place] [address] Phys: Mike Lund MD Acct: [id number] Dis Date: Status: PRE SDC PHONE #: [phone] Exam Date: 06/16/2021 1120 FAX #: [phone] Reason: PREOP EXAMS: CPT CODE: [id number] XR CHEST 2 V 37548 PROCEDURE INFORMATION: Exam: XR Chest Exam date [...] Technologist: Danielle Nix RT(R) Trnscrd Date/Time/By: 06/16/2021 (0273) : By: [email or web address] Orig Print D/T: S: 06/16/2021 (5366) PAGE 1 Signed ReportGastrointestinal rdxkr7920-60-00 04:35:05 Test Item Value Reference Interpretation Comments [...] Rotavirus PCR (test Not Detected code = 5464734) Salmonella PCR (test Not Detected code = [...] PCR Not Detected (test code = 7124) [facility] kajidki0832-91-03 19:30:47 Test Item Value Reference Range Interpretation Comments Case number (test [id number] code = 5268944) Surgical pathology See link below for PDF report (test code = Lab Report 2255) Result status (test This is Supplemental code = 7844932) Report for [id number] [facility]OyxvgsjjYBEWYYPUXL4212-33-43 16:31:00 Test Item Value Reference Range Interpretation Comments POC Activated Clotting Time (test code 153 s = POC Activated Clotting Time) [facility] SouthCxyxneqZMLQIEARYE9693-15-27 16:31:00 Test Item Value Reference Range Interpretation Comments POC Activated Clotting Time (test code 153 s = POC Activated Clotting Time) [facility] SouthZetscehRSQIAHIANT2020-25-20 16:31:00 Test Item Value Reference Range Interpretation Comments POC Activated Clotting Time (test code 153 s = POC Activated Clotting Time) [facility] SouthSljyeswRWVUDMFEDB0254-23-29 16:31:00 Test Item Value Reference Range Interpretation Comments POC Activated Clotting Time (test code 153 s = POC Activated Clotting Time) [facility] SouthBwnphscSAQVQOIUMN6945-97-42 16:31:00 Test Item Value Reference Range Interpretation Comments POC Activated Clotting Time (test code 153 s = POC Activated Clotting Time) [facility] SouthNhlalztQFRFFSZONK4624-29-18 16:31:00 Test Item Value Reference Range Interpretation Comments POC Activated Clotting Time (test code 153 s = POC Activated Clotting Time) [facility] SouthEdwingpHMREKLYVDW3777-45-56 16:31:00 Test Item Value Reference Range Interpretation Comments POC Activated Clotting Time (test code 153 s = POC Activated Clotting Time) [facility] SouthXgarxjcNTCRSCPZOJ5245-07-21 14:37:00 Test Item Value Reference Range Interpretation Comments POC Activated Clotting Time (test code 454 s = POC Activated Clotting Time) [facility] SouthVurddpeVOSKGDECTD5021-05-37 14:37:00 Test Item Value Reference Range Interpretation Comments POC Activated Clotting Time (test code 454 s = POC Activated Clotting Time) [facility] SouthDimjstiWFYWAUGZVO7261-57-81 14:37:00 Test Item Value Reference Range Interpretation Comments POC Activated Clotting Time (test code 454 s = POC Activated Clotting Time) [facility] SouthQcrjkvaGIMFCIZWSQ3814-53-02 14:37:00 Test Item Value Reference Range Interpretation Comments POC Activated Clotting Time (test code 454 s = POC Activated Clotting Time) [facility] SouthXrwczzvKYCRFHMXFY9129-10-23 14:37:00 Test Item Value Reference Range Interpretation Comments POC Activated Clotting Time (test code 454 s = POC Activated Clotting Time) [facility] SouthWppoplvFEMWXOCAQW9512-81-75 14:37:00 Test Item Value Reference Range Interpretation Comments POC Activated Clotting Time (test code 454 s = POC Activated Clotting Time) [facility] SouthThmqrccGYYUTVKXWT0977-59-40 14:37:00 Test Item Value Reference Range Interpretation Comments POC Activated Clotting Time (test code 454 s = POC Activated Clotting Time) [facility] SouthOzqiixkSJTCPTBTIC1440-91-24 14:13:00 Test Item Value Reference Range Interpretation Comments POC Activated Clotting Time (test code 354 s = POC Activated Clotting Time) [facility] SouthPbdqykoFEQUWJKZOF2146-51-36 14:13:00 Test Item Value Reference Range Interpretation Comments POC Activated Clotting Time (test code 354 s = POC Activated Clotting Time) [facility] SouthDyehuthYBGXTFWOUS9077-57-87 14:13:00 Test Item Value Reference Range Interpretation Comments POC Activated Clotting Time (test code 354 s = POC Activated Clotting Time) [facility] SouthOpotnxmPLGQYRJHTN1634-35-87 14:13:00 Test Item Value Reference Range Interpretation Comments POC Activated Clotting Time (test code 354 s = POC Activated Clotting Time) [facility] SouthDiuyddeGOPIJVCRKY9623-36-21 14:13:00 Test Item Value Reference Range Interpretation Comments POC Activated Clotting Time (test code 354 s = POC Activated Clotting Time) [facility] SouthEpkgivmPUCGWUGQSS4908-40-24 14:13:00 Test Item Value Reference Range Interpretation Comments POC Activated Clotting Time (test code 354 s = POC Activated Clotting Time) [facility] SouthAfiunsfYGUNQVILMN8833-93-24 14:13:00 Test Item Value Reference Range Interpretation Comments POC Activated Clotting Time (test code 354 s = POC Activated Clotting Time) [facility] LNQMHZR7934-64-45 10:37:00Negative (08/29/20 5:37 AM) [place] HermannCHEM DXSOD4146-61-86 10:37:77300Ixscmdbe HermannCHEM PANEL 2020-08-29 10:37:0028[facility] HermannCHEM AAWFE7465-48-98 10:37:001.01[facility] HermannCHEM TVEWS0083-64-49 10:37:65253Abtikily HermannCHEM JCQSY4684-12-45 10:37:003.8[facility] HermannCHEM VBWAL1866-68-04 10:37:23155Tstdpiyn HermannCHEM HWEUX3067-35-73 10:37:0028[facility] HermannCHEM LLBXP3210-63-97 10:37:009.8 [facility]annCHEM GGOXQ5057-22-15 10:37:0011.8[facility] HermannCHEM PANEL 2020-08-29 10:37:0059[facility] HermannCHEM KDZRF2908-08-37 10:37:002.9[facility] MshwdioAWIFHUULCG0400-74-65 10:37:006.8[facility] BgspicbMHMPETHPRL1427-88-15 10:37:004.47[facility] SobahorXJKKDNLCLX7558-16-51 10:37:0010.6[facility] [place] IZVVJWTBIU9982-12-59 10:37:0034.0[facility] GtygxrlIRMDQWIHRO6538-09-98 10:37:00 76.1[facility] WrxyqhrRORIKOIVTI4338-69-36 10:37:00 Test Item Value Reference Range Interpretation Comments MCH (test code = MCH) 23.8 pg 27.0-31.0 [facility] MrtybfvFYQDRFREBC6765-90-67 10:37:0031.3[facility] HermannHEMATOLOGY 2020-08-29 10:37:0018.2[facility] HtrrgegYDKQHEIBQB1274-51-32 10:37:16266Wkqboruw EbkyfpiZGOBPLQXZU3641-82-94 10:37:007.5[facility] YaaralyDSISBWECIF0622-22-09 10:37:00 Test Item Value Reference Range Interpretation Comments PT (test code = PT) 12.8 s 12.0-14.7 [facility] MhahegxNXNXGGQYSV2307-19-58 10:37:00 Test Item Value Reference Range Interpretation Comments INR (test code = INR) 0.97 1 0.85-1.17 [facility] XmdlzgqNKINGXVYDJ6690-26-42 10:37:00 Test Item Value Reference Range Interpretation Comments PTT (test code = PTT) 25.0 s 22.9-35.8 [facility] MtxvlmuUFWYYNIAVH8041-04-66 10:37:0070.5[facility] HermannHEMATOLOGY 2020-08-29 10:37:0018.8[facility] CktiazhLLFAJUZGWK9635-64-76 10:37:009.5[facility] ZsgmldoNJHOLCWKAT1836-12-06 10:37:000.9[facility] PayajtlBHAKTXJPDD1318-14-13 10:37:000.3[facility] PqfpgwiQCRXDXKKOY3567-63-68 10:37:004.8[facility] Marty KUTGHORTJP7072-15-90 10:37:001.3[facility] SapqrmbJRRQWSPCYI7902-16-21 10:37:000.6 [facility] NbkaizhISZRVBYDGR1287-63-74 10:37:000.1[facility] HermannHEMATOLOGY 2020-08-29 10:37:001+ *ABN*(08/29/20 5:37 AM)[facility] BfkvcdmOLNFISZZGM1947-48-53 10:37:00Not Detected (08/29/20 5:37 AM)[facility] HermannBLOOD BANK RESULTS 2020-08-29 10:37:00Negative (08/29/20 5:37 AM)[facility] HermannCHEM TERFB0455-28-31 10:37:34593Ljvuwdid HermannCHEM TFYSA3335-48-64 10:37:0028[facility] HermannCHEM ZJITW3455-79-65 10:37:001.01[facility] HermannCHEM RPLTC7353-05-13 10:37:82234 [facility] HermannCHEM LMXXS0320-13-65 10:37:003.8[facility] HermannCHEM PANEL 2020-08-29 10:37:73827Fbtnyson HermannCHEM STJRT9154-09-28 10:37:0028[facility] HermannCHEM MBPHE0014-71-95 10:37:009.8[facility] HermannCHEM XVRXW5955-68-97 10:37:0011.8[facility] HermannCHEM UYNRP8089-40-05 10:37:0059[facility] HermannCHEM VCJEM0709-47-56 10:37:002.9[facility] KckvmwnWQNMRWYQTW9111-78-54 10:37:006.8 [facility] KcxflrfYSJTNTBCYF5624-60-47 10:37:004.47[facility] HermannHEMATOLOGY 2020-08-29 10:37:0010.6[facility] ExsayjqRQDATFMOTE2603-53-91 10:37:0034.0[facility] DkullesHGNVCNXBNG4294-43-51 10:37:0076.1[facility] SfoxqkjZWIQGDCNDW0935-19-62 10:37:00 Test Item Value Reference Range Interpretation Comments MCH (test code = MCH) 23.8 pg 27.0-31.0 [facility] DhyvbgqRUJOBURCSN6825-49-86 10:37:0031.3[facility] HermannHEMATOLOGY 2020-08-29 10:37:0018.2[facility] RkttydnPSTPNNSOUR8031-49-90 10:37:70256Vsajlerz XoljluuGGKEDPMTYX9464-14-87 10:37:007.5[facility] SwzzdzbOQBYJMZYZL1701-96-34 10:37:00 Test Item Value Reference Range Interpretation Comments PT (test code = PT) 12.8 s 12.0-14.7 [facility] PfcpwztUAFMKZDHOX3343-33-64 10:37:00 Test Item Value Reference Range Interpretation Comments INR (test code = INR) 0.97 1 0.85-1.17 [facility] DlyzqhhJXGGVPONPC3076-08-42 10:37:00 Test Item Value Reference Range Interpretation Comments PTT (test code = PTT) 25.0 s 22.9-35.8 [facility] SncseglJHTSBIMRFR2311-69-38 10:37:0070.5[facility] HermannHEMATOLOGY 2020-08-29 10:37:0018.8[facility] PehhhlsRIDKBTWWVV7806-34-50 10:37:009.5[facility] ZtohnihHHJLVMQJYC1767-96-65 10:37:000.9[facility] YchzpaxPLDOBKRXNM1101-39-57 10:37:000.3[facility] KjzhmmbRTNOCYBOLE1634-78-24 10:37:004.8[facility] Marty VESHZEJHXJ1058-45-22 10:37:001.3[facility] ZpdcpynIYXEMMCMGT8682-81-59 10:37:000.6 [facility] UggwacvAOYDYTBFXN4054-59-35 10:37:000.1[facility] HermannHEMATOLOGY 2020-08-29 10:37:001+ *ABN*(08/29/20 5:37 AM)[facility] ExkahqgDWDRVVQQBO1051-13-08 10:37:00Not Detected (08/29/20 5:37 AM)[facility] HermannBLOOD BANK RESULTS 2020-08-29 10:37:00Negative (08/29/20 5:37 AM)[facility] HermannCHEM ARQCZ1192-05-97 10:37:33883Jvmfrfrd HermannCHEM IHWFM8066-58-91 10:37:0028[facility] HermannCHEM RTSUS7361-68-33 10:37:001.01[facility] HermannCHEM IVPOE6411-25-55 10:37:84703 [facility] HermannCHEM YWZVY6042-07-22 10:37:003.8[facility] HermannCHEM PANEL 2020-08-29 10:37:02967Csqgcahi HermannCHEM LAYMK4128-22-90 10:37:0028[facility] HermannCHEM YCWXB5474-55-40 10:37:009.8[facility] HermannCHEM BMGNN0702-30-19 10:37:0011.8[facility] HermannCHEM LUSSL2181-24-15 10:37:0059[facility] HermannCHEM HDSJG3646-69-81 10:37:002.9[facility] WvbgbcbHPVKWKKDSX0128-37-34 10:37:006.8 [facility] ZenlaprMYLZPEHYAS7913-53-95 10:37:004.47[facility] HermannHEMATOLOGY 2020-08-29 10:37:0010.6[facility] ZbzjflgRMVNCZURHR7187-94-00 10:37:0034.0[facility] MmigsayCQKSQMWDIL9419-45-37 10:37:0076.1[facility] AdpdfoqMQWXSDKGOY1243-82-20 10:37:00 Test Item Value Reference Range Interpretation Comments MCH (test code = MCH) 23.8 pg 27.0-31.0 [place] AfjfqfrKQZEVIJRFC4740-63-27 10:37:0031.3[facility] HermannHEMATOLOGY 2020-08-29 10:37:0018.2[facility] PhwxojqSSIKYGJMFN6763-79-17 10:37:55317Kxalbubu HnduemfBWEVUPDBYD3665-91-58 10:37:007.5[facility] OtcnqwoQNRDWMLZZX9378-94-20 10:37:00 Test Item Value Reference Range Interpretation Comments PT (test code = PT) 12.8 s 12.0-14.7 [place] NogkgwlDEAQVTFNPK4978-07-32 10:37:00 Test Item Value Reference Range Interpretation Comments INR (test code = INR) 0.97 1 0.85-1.17 [place] HpwvpztRYWLBXUONU9731-27-33 10:37:00 Test Item Value Reference Range Interpretation Comments PTT (test code = PTT) 25.0 s 22.9-35.8 [facility] NygujrqFVKQLHWOFZ2615-27-08 10:37:0070.5[facility] HermannHEMATOLOGY 2020-08-29 10:37:0018.8[facility] IsghklhAINNPHQXHF3667-64-78 10:37:009.5[facility] KmwofecANJRDYSBCJ5997-08-16 10:37:000.9[facility] VyhbarePNORDOAUAF7328-08-31 10:37:000.3[facility] RjcbytbUMGCQEGBBP8781-67-70 10:37:004.8[facility] [place] VEVLTWOWJG4808-70-28 10:37:001.3[facility] MnvunjzJGDVETBEOH7509-51-97 10:37:000.6 [facility] NbebxqqRXJYBGLKMD7968-38-26 10:37:000.1[facility] HermannHEMATOLOGY 2020-08-29 10:37:001+ *ABN*(08/29/20 5:37 AM)[facility] VgrttzjSRUQFGOBRX3352-56-45 10:37:00Not Detected (08/29/20 5:37 AM)[facility] HermannBLOOD BANK RESULTS 2020-08-29 10:37:00Negative (08/29/20 5:37 AM)[facility] HermannCHEM SZVLZ7975-68-44 10:37:04285Bnuvwzfc HermannCHEM YYZVJ9886-30-41 10:37:0028[facility] HermannCHEM HPCGN8980-05-74 10:37:001.01[facility] HermannCHEM CJUFJ5451-91-22 10:37:88954 [facility]annCHEM RNDWU7099-39-80 10:37:003.8[facility] HermannCHEM PANEL 2020-08-29 10:37:46601Cyrnurlt HermannCHEM OWFIE4622-78-13 10:37:0028[facility] HermannCHEM HEQSA2150-53-96 10:37:009.8[facility] HermannCHEM IUJNM0894-12-90 10:37:0011.8[facility] HermannCHEM GQCAZ2077-39-18 10:37:0059[facility] HermannCHEM LBBLX0744-37-72 10:37:002.9[facility] ZddqukxPUQGLUCLDF7928-17-65 10:37:006.8 [facility] AgajawbFWJECPCQVR1304-06-06 10:37:004.47[facility] HermannHEMATOLOGY 2020-08-29 10:37:0010.6[facility] TgmbhefMZJXBOXDOM2372-10-58 10:37:0034.0[facility] LbmmtrqDQJUFINSOC4438-34-63 10:37:0076.1[facility] DmghyoeSZRYPXMANO9268-67-66 10:37:00 Test Item Value Reference Range Interpretation Comments MCH (test code = MCH) 23.8 pg 27.0-31.0 [facility] MhhiqkxGTRZMDOVWD4327-90-92 10:37:0031.3[facility] HermannHEMATOLOGY 2020-08-29 10:37:0018.2[facility] SwqzwljCPAVBEZQPH2330-14-07 10:37:42007Ieceoraa TmvihdjTYCRPMMFXT6923-97-10 10:37:007.5[facility] SwareijTUZSXLTNOV4289-34-72 10:37:00 Test Item Value Reference Range Interpretation Comments PT (test code = PT) 12.8 s 12.0-14.7 [facility] YmfazxxKWCOITDJBN9652-42-63 10:37:00 Test Item Value Reference Range Interpretation Comments INR (test code = INR) 0.97 1 0.85-1.17 [facility] VrbardnMTFBYYAZHZ9781-56-47 10:37:00 Test Item Value Reference Range Interpretation Comments PTT (test code = PTT) 25.0 s 22.9-35.8 [facility] XfvpjdlPQSBPUPJVW9246-06-04 10:37:0070.5[facility]annHEMATOLOGY 2020-08-29 10:37:0018.8[facility] SebmtaaNKHTZGSUAG6384-27-65 10:37:009.5[facility] OiutiaiWEVLQIXHVV6290-70-92 10:37:000.9[facility] BuhoqgzPSBNNCSVZI6632-27-66 10:37:000.3[facility] XttljfmAVXIGXAKMZ6701-65-03 10:37:004.8[facility] EKBBPUPAKI5399-26-03 10:37:001.3[facility] IabzucxQZVBUPOIBK3761-59-53 10:37:000.6 [facility] JxubtbrGFMKDQLZWB7876-82-11 10:37:000.1[facility]annHEMATOLOGY 2020-08-29 10:37:001+ *ABN*(08/29/20 5:37 AM)[facility] XkxhhmkYEBJAWHSRT0246-50-92 10:37:00Not Detected (08/29/20 5:37 AM)[facility]annBL[facility] B[facility] RESULTS 2020-08-29 10:37:00Negative (08/29/20 5:37 AM)[facility]annCHEM YOFVH7766-74-30 10:37:75705Eaepxvyl HermannCHEM FGVVZ4240-45-30 10:37:0028[facility]annCHEM VUYIN0523-78-74 10:37:001.01[facility]annCHEM ZKVFW9903-34-21 10:37:61348 [facility]annCHEM FBQFC3003-68-34 10:37:003.8[facility] HermannCHEM PANEL 2020-08-29 10:37:40275Flxutwzi HermannCHEM TQAPP8180-37-06 10:37:0028[facility] HermannCHEM IRAWE9182-87-35 10:37:009.8[facility]annCHEM IQIIE3631-43-88 10:37:0011.8[facility]annCHEM TYPJA1876-41-80 10:37:0059[facility]annCHEM BJGPB9970-89-94 10:37:002.9[facility] UhodaeqPISWEFEFUN0308-04-73 10:37:006.8 [facility] TbgxotpPHUEGUZQPG5589-97-18 10:37:004.47[facility]annHEMATOLOGY 2020-08-29 10:37:0010.6[facility] StixnnzKWZBBBZYGL0724-99-14 10:37:0034.0[facility] CsdboinLDTTJJZDKW6654-21-46 10:37:0076.1[facility] LdzwljpIVJUIISXQQ2147-99-04 10:37:00 Test Item Value Reference Range Interpretation Comments MCH (test code = MCH) 23.8 pg 27.0-31.0 [facility] UyhurrdJJTEWENVSC0252-51-95 10:37:0031.3[facility]annHEMATOLOGY 2020-08-29 10:37:0018.2[facility] BhbnlpoXZBIESTXNO2805-00-74 10:37:48627Rffswcrw YpecuhuWUNTANMYMZ6409-81-10 10:37:007.5[facility] YugjdikSOKUVIIYCC6186-52-64 10:37:00 Test Item Value Reference Range Interpretation Comments PT (test code = PT) 12.8 s 12.0-14.7 [facility] DrroejaDDXBDGRFLK5424-10-96 10:37:00 Test Item Value Reference Range Interpretation Comments INR (test code = INR) 0.97 1 0.85-1.17 [facility] MkygmcdVKKBMOHVCS4822-25-99 10:37:00 Test Item Value Reference Range Interpretation Comments PTT (test code = PTT) 25.0 s 22.9-35.8 [facility] FlmrpviJDCQGYFHDR0726-82-67 10:37:0070.5[facility]annHEMATOLOGY 2020-08-29 10:37:0018.8[facility] HxhlphvWBALNHTRJI9688-34-62 10:37:009.5[facility] FmvxcpvMGTHGPTRIU4600-30-71 10:37:000.9[facility] SncvsziEZCYNLBVFE0472-43-68 10:37:000.3[facility] PefojiuRRLQNKQQMN9941-57-71 10:37:004.8[facility] [place] QEXKEYKOQE2286-58-13 10:37:001.3[facility] MlronclBUFIZJDRYY3821-84-39 10:37:000.6 [facility] EwsgutlMJOCFTNDAM5492-83-80 10:37:000.1[facility]annHEMATOLOGY 2020-08-29 10:37:001+ *ABN*(08/29/20 5:37 AM)[facility] SuuldckSYNCBETEBC5387-55-27 10:37:00Not Detected (08/29/20 5:37 AM)[facility]annBL[facility]OD BANK RESULTS 2020-08-29 10:37:00Negative (08/29/20 5:37 AM)[facility]annCHEM MJMZF7657-32-33 10:37:67101Vwxioebc HermannCHEM ZDGZR7952-39-30 10:37:0028[facility]annCHEM IATUF8204-26-93 10:37:001.01[facility]annCHEM UWLTB1033-97-12 10:37:97126 [facility]annCHE[facility] WGIGA9979-62-73 10:37:003.8[facility]annCHEM PANEL 2020-08-29 10:37:16862Ecxfsdvu HermannCHEM MVUNJ9135-24-54 10:37:0028[facility]annCHEM VINFX6819-86-48 10:37:009.8[facility]annCHEM RNYXA0690-97-42 10:37:0011.8[facility]annCHEM ULVIQ4036-77-00 10:37:0059[facility]annCHEM TXQNN2852-30-83 10:37:002.9[facility] ChdpgaxXAVJSSIFMN9225-59-78 10:37:006.8 [facility] IyezikeWJLOKOQWAQ6675-22-06 10:37:004.47[facility]annHEMATOLOGY 2020-08-29 10:37:0010.6[facility] AfnxaclYEUDSWPUOM1857-21-47 10:37:0034.0[facility] ZnekglvZKQORKWLOS1449-65-42 10:37:0076.1[facility] DlgjdnuOVSLKYZAMB3580-50-23 10:37:00 Test Item Value Reference Range Interpretation Comments MCH (test code = MCH) 23.8 pg 27.0-31.0 [place] UvenpjlERQMSBUBKO2136-52-79 10:37:0031.3[facility]annHEMATOLOGY 2020-08-29 10:37:0018.2[facility] KcvktcwRVKQBSQTLN0852-93-10 10:37:33873Hiwwtoca EptjaerQCEZTYDABJ9367-72-84 10:37:007.5[facility] XvbjbkvABYYJUTVTJ2813-41-98 10:37:00 Test Item Value Reference Range Interpretation Comments PT (test code = PT) 12.8 s 12.0-14.7 [facility] YwpkinvXUCABEVOQV9087-87-16 10:37:00 Test Item Value Reference Range Interpretation Comments INR (test code = INR) 0.97 1 0.85-1.17 [place] FqyczclOCRBRLTEJK5600-30-90 10:37:00 Test Item Value Reference Range Interpretation Comments PTT (test code = PTT) 25.0 s 22.9-35.8 [facility] KurntsjMFVYTOAAFI0243-55-91 10:37:0070.5[facility]annHEMATOLOGY 2020-08-29 10:37:0018.8[facility] GrmhuhhHPTCXEQKVR4191-98-35 10:37:009.5[facility] GusemcxHKEJEWMXZJ9256-46-67 10:37:000.9[facility] NjeeafgQPYMTDHDQK9869-20-34 10:37:000.3[facility] ZclepieNUHHVEYYFI3933-75-84 10:37:004.8[facility] [place] CMJBEWOXIV7330-30-26 10:37:001.3[facility] RccsayzNRFCABVXAJ6925-79-81 10:37:000.6 [facility] ZiulxisOSOZKXTMXK0289-19-63 10:37:000.1[facility]annHEMATOLOGY 2020-08-29 10:37:001+ *ABN*(08/29/20 5:37 AM)[facility] HiblfieTYFBGFRFVD1875-04-23 10:37:00Not Detected (08/29/20 5:37 AM)[facility]annBL[facility] BANK RESULTS 2020-08-29 10:37:00Negative (08/29/20 5:37 AM)[facility]annCHEM RFFWO6640-62-71 10:37:89101Utgkmuie HermannCHEM HQPEG6783-20-31 10:37:0028[facility]annCHEM TTUCK6828-38-58 10:37:001.01[facility]annCHEM BLNNK6614-96-08 10:37:81062 [facility]annCHE[facility] MQNIB2910-47-81 10:37:003.8[facility]annCHEM PANEL 2020-08-29 10:37:42592Rsuhkgxe HermannCHEM NPDRB5169-47-61 10:37:0028[facility]annCHEM YQAWI1005-59-38 10:37:009.8[facility]annCHEM HNOCY5360-11-08 10:37:0011.8[facility]annCHEM MJASW0328-81-03 10:37:0059[facility]annCHEM IIXBX9779-72-61 10:37:002.9[facility] JluuugnVGCHYUKWLK8775-25-05 10:37:006.8 [facility] TgakurvZOCLRHHOFV1372-86-28 10:37:004.47[facility]annHEMATOLOGY 2020-08-29 10:37:0010.6[facility] BkxfybzINFEIKDATS3383-42-60 10:37:0034.0[facility] FcpviapWPSBAMSFZV5283-58-70 10:37:0076.1[facility] BoflwvvJJYWITVQLR6934-37-93 10:37:00 Test Item Value Reference Range Interpretation Comments MCH (test code = MCH) 23.8 pg 27.0-31.0 [facility] AttnactITFRETJZRU9154-34-11 10:37:0031.3[facility]annHEMATOLOGY 2020-08-29 10:37:0018.2[facility] WjcxpvkDPXNXVDEMH4817-15-33 10:37:14321Iyoolkrd RwzhlskHLELSEKUEP3655-63-73 10:37:007.5[facility] IwqlnxsTBZTFWJSDE3214-40-25 10:37:00 Test Item Value Reference Range Interpretation Comments PT (test code = PT) 12.8 s 12.0-14.7 [facility] CmoomllCUOPGEYXDP5070-89-50 10:37:00 Test Item Value Reference Range Interpretation Comments INR (test code = INR) 0.97 1 0.85-1.17 [facility] XlxwpxkMECKLJDVZR0490-29-92 10:37:00 Test Item Value Reference Range Interpretation Comments PTT (test code = PTT) 25.0 s 22.9-35.8 [facility] RadqphuQBMNFDBDMV9512-97-69 10:37:0070.5[facility]annHEMATOLOGY 2020-08-29 10:37:0018.8[facility] VcemkevYLNPTLRYIK7136-88-14 10:37:009.5[facility] NwvctsgVPCZQRQJKG4916-47-31 10:37:000.9[facility] ViqcocyFZAOCYGLZD7131-51-98 10:37:000.3[facility] XvgttjgUDOTTHKQHB1947-85-93 10:37:004.8[facility] [place] QFRQUAVJMM4755-14-79 10:37:001.3[facility] AzpgijtRRVDOZSWOS0009-30-82 10:37:000.6 [facility] ZspsqndQKLSXUADEG4272-11-42 10:37:000.1[facility]annHEMATOLOGY 2020-08-29 10:37:001+ *ABN*(08/29/20 5:37 AM)[place] LjlonrvVLAZRXSECZ9954-95-68 10:37:00Not Detected (08/29/20 5:37 AM)[facility], TV,PCR, IN UCCZN0677-72-14 15:38:00 Test Item Value Reference Range Interpretation Comments FT (test code = CHTR) Not detected (qualifier Not Detected N value) FT (test code = Not detected (qualifier Not Detected N NGONO) value) FT (test code = TRVG) Not detected (qualifier Not Detected N value) [facility] TBEOAKFSQGO0464-85-95 10:57:00 Test Item Value Reference Range Interpretation Comments Color (test code = UCOLR) Dk. Yellow Clarity (test code = UCLAR) Hazy Glucose (test code = UGLUC) NEGATIVE NEGATIVE N Bilirubin (test code = UBILI) NEGATIVE NEGATIVE N Ketones (test code = UKET) NEGATIVE NEGATIVE N Specific [place] (test code = 1.025 1.005-1.030 A USPGR) [...] Seen None Seen N URCRYS) [facility]"
[2022-08-07] MEDS ORDERED: KETOROLAC 30 MG/ML INJ ONE (23:51)
[2022-08-07] MEDS ORDERED: ONDANSETRON 4 MG (ODT) TAB ONE (23:52)
--- NOTE | 2022-08-08 00:56 | EDPHYS ---
Physician Documentation [facility] Name: Marjan Kolb Age: 67 yrs Sex: Female : 1955 Arrival Date: 08/07/2022 Time: 23:31 Bed 7 Private MD: ED Physician Jose Shah HPI: 08/08 00:18 This 67 yrs old Female presents to ER via EMS with complaints of Left-sided rib pain. ms3 00:18 67-year-old female with past medical history of anxiety, atrial fibrillation, bipolar, ms3 esophageal varices, hypertension, varices presents for left-sided rib pain that is been ongoing for 3 weeks. Patient states pain is 10/10 and denies alleviating or inciting factors. Patient states she took Tylenol and ibuprofen. Patient states she was seen in the emergency department previously for this pain and x-rays were negative. Patient also notes that she fell today while getting off the bus at 3 PM. Patient states she did hit her head, denies loss of consciousness.. Historical: - Allergies: 08/07 23:34 Azithromycin; jb4 23:34 Bactrim; jb4 23:34 butorphanol; jb4 23:34 Fentanyl; jb4 23:34 Reglan; jb4 23:34 Sulfa (Sulfonamide Antibiotics); jb4 23:34 TRIMETHOPRIM; jb4 - PMHx: 23:34 Anxiety; Atrial fibrillation; Bipolar disorder; esophageal varicies; Hepatitis; HIV jb4 positive; Hypertensive disorder; Migraine; panic attack; - Immunization history:: Adult Immunizations unknown. - Social history:: Smoking status: Patient/guardian denies using tobacco, the patient reports quitting approximately 2 years ago. ROS: 08/08 00:18 Constitutional: Negative for fever, and chills. Neck: Negative for injury, pain, and ms3 swelling, Respiratory: Negative for shortness of breath, cough, wheezing, and pleuritic chest pain. Cardiovascular: Positive for chest pain, of the Left lateral. All other systems are negative. Exam: 00:18 Constitutional: This is a well developed, well nourished patient who is awake, alert, ms3 and in no acute distress. Head/Face: Normocephalic, atraumatic. ENT: Nares patent. No nasal discharge, no septal abnormalities noted. Tympanic membranes are normal and external auditory canals are clear. Oropharynx with no redness, swelling, or masses, exudates, or evidence of obstruction, uvula midline. Mucous membranes moist. Neck: Trachea midline, no cervical lymphadenopathy. Supple, full range of motion without nuchal rigidity, or vertebral point tenderness. No Meningismus. 00:18 Skin: Warm, dry with normal turgor. Normal color with no rashes, no lesions, and no evidence of cellulitis. MS/ Extremity: Pulses equal, no cyanosis. Neurovascular intact. Full, normal range of motion. 00:18 Chest/axilla: Inspection: Palpation: crepitus, is not appreciated, tenderness, that is moderate, of the left lateral anterior chest. Vital Signs: 08/07 23:32 BP 162 / 83; Pulse 60; Resp 16; Temp 98.7(O); Pulse Ox 97% on R/A; Weight 76.2 kg (R); jb4 Height 5 ft. 4 in. ; Pain 10/10; 23:32 Body Mass Index 28.84 (76.20 kg, 162.56 cm) jb4 23:32 Pain Scale: Adult jb4 MDM: 23:31 Patient medically screened. ms3 08/08 00:18 Differential diagnosis: Blunt Chest Trauma Chest Wall Contusion Chest Wall Injury. ms3 08/07 23:32 Order name: CT Head C Spine ms3 08/08 00:50 Order name: Chest Pa And Lat (2 Views) XRAY ms3 Administered Medications: 08/07 23:33 CANCELLED (Physician Discretion): Ketorolac IVP 10 mg 10 mg IVP once kl 23:52 Drug: Ketorolac IM 15 mg Route: IM; Site: left deltoid; jb4 23:52 Drug: Ondansetron PO 4 mg Route: PO; jb4 Disposition Summary: 08/08/22 00:56 Discharge Ordered Location: Home ms3 Condition: Stable ms3 Diagnosis - Rib pain ms3 - Fall on same level, unspecified ms3 Followup: ms3 - With: Olivier Collins DO - When: 1 - 2 days - Reason: Recheck today's complaints Forms: - Medication Reconciliation Form ms3 - Thank You Letter ms3 - Antibiotic Education ms3 - Prescription Opioid Use ms3 Signatures: Dispatcher [employer] Mode Serrano RN RN jb4 Jose Shah DO DO ms3 Paige De Jesus RN kl Corrections: (The following items were deleted from the chart) 23:33 23:32 Ketorolac IVP 10 mg 10 mg IVP once ordered. ms3 kl
--- NOTE | 2022-08-08 00:56 | ER ---
Nurse's Notes [facility] Name: Marjan Kolb Age: 67 yrs Sex: Female : 1955 Arrival Date: 08/07/2022 Time: 23:31 Bed 7 Private MD: Diagnosis: Rib pain;Fall on same level, unspecified Presentation: 08/07 23:32 Chief complaint: EMS states: Pt reports left rib pain for the past 3 weeks. Also jb4 mentioned that she fell and hit her head earlier in the day. Coronavirus screen: At this time, the client does not indicate any symptoms associated with coronavirus-19. Ebola Screen: No symptoms or risks identified at this time. Initial Sepsis Screen: Does the patient meet any 2 criteria? No. Patient's initial sepsis screen is negative. Does the patient have a suspected source of infection? No. Patient's initial sepsis screen is negative. Risk Assessment: Do you want to hurt yourself or someone else? Patient reports no desire to harm self or others. Onset of symptoms was August 07, 2022. Transition of care: patient was not received from another setting of care. 23:32 Method Of Arrival: EMS: [facility] jb4 23:32 Acuity: BLAYNE 3 jb4 Historical: - Allergies: 23:34 Azithromycin; jb4 23:34 Bactrim; jb4 23:34 butorphanol; jb4 23:34 Fentanyl; jb4 23:34 Reglan; jb4 23:34 Sulfa (Sulfonamide Antibiotics); jb4 23:34 TRIMETHOPRIM; jb4 - PMHx: 23:34 Anxiety; Atrial fibrillation; Bipolar disorder; esophageal varicies; Hepatitis; HIV jb4 positive; Hypertensive disorder; Migraine; panic attack; - Immunization history:: Adult Immunizations unknown. - Social history:: Smoking status: Patient/guardian denies using tobacco, the patient reports quitting approximately 2 years ago. Screenin:34 [facility] ED Fall Risk Assessment (Adult) History of falling in the last 3 months, jb4 including since admission No falls in past 3 months (0 pts) Confusion or Disorientation No (0 pts) Score/Fall Risk Level 0 - 2 = Low Risk Oriented to surroundings, Maintained a safe environment. Abuse screen: Denies threats or abuse. Nutritional screening: No deficits noted. Tuberculosis screening: No symptoms or risk factors identified. Assessment: 23:34 General: Appears in no apparent distress. comfortable, Behavior is calm, cooperative, jb4 appropriate for age. Pain: Complains of pain in Left ribs Pain does not radiate. Neuro: Gonzalez Agitation-Sedation Scale (RASS): 0 - Alert and Calm Level of Consciousness is awake, alert, obeys commands, Oriented to person, place, time, situation. Cardiovascular: Patient's skin is warm and dry. Respiratory: Airway is patent Respiratory effort is even, unlabored, Respiratory pattern is regular, symmetrical. GI: No signs and/or symptoms were reported involving the gastrointestinal system. : No signs and/or symptoms were reported regarding the genitourinary system. EENT: No signs and/or symptoms were reported regarding the EENT system. Derm: Skin is intact, Skin is pink, warm \T\ dry. Musculoskeletal: Circulation, motion, and sensation intact. Range of motion: intact in all extremities. Vital Signs: 23:32 BP 162 / 83; Pulse 60; Resp 16; Temp 98.7(O); Pulse Ox 97% on R/A; Weight 76.2 kg (R); jb4 Height 5 ft. 4 in. ; Pain 10/10; 23:32 Body Mass Index 28.84 (76.20 kg, 162.56 cm) jb4 23:32 Pain Scale: Adult jb4 ED Course: 23:31 Patient arrived in ED. jb4 23:31 Jose Shah DO is Attending Physician. ms3 23:34 Triage completed. jb4 23:34 Arm band placed on right wrist. jb4 23:34 Patient has correct armband on for positive identification. Bed in low position. Call jb4 light in reach. Side rails up X 1. Client placed on continuous cardiac and pulse oximetry monitoring. NIBP monitoring applied. 23:41 Mode Bhatt, ASHLEY is Primary Nurse. jb4 03 00:55 Olivier Collins DO is Referral Physician. ms3 Administered Medications: 08/07 23:33 CANCELLED (Physician Discretion): Ketorolac IVP 10 mg 10 mg IVP once kl 23:52 Drug: Ketorolac IM 15 mg Route: IM; Site: left deltoid; jb4 23:52 Drug: Ondansetron PO 4 mg Route: PO; jb4 Medication: 23:34 VIS not applicable for this client. jb4 Outcome: 08/08 00:56 Discharge ordered by . ms3 Signatures: Mode Bhatt RN RN jb4 Jose Shah DO DO ms3 Paige De Jesus RN kl
[2022-08-08] MEDS ORDERED: ACETAMINOPHEN 500 MG TAB ONE (00:57)
[2022-08-08 01:33] VITALS: TEMP 98.7
[2022-08-08 01:34] VITALS: BP 178/108; O2SAT 94
== END 2022-08-08 01:05 | disposition home or self-care (01) ==
LOC: ER 23:27
DX: R07.81 Pleurodynia (principal); W18.30XA Fall on same level, unspecified, initial encounter; F41.9 Anxiety disorder, unspecified; I48.91 Unspecified atrial fibrillation; F31.9 Bipolar disorder, unspecified; I83.90 Asymptomatic varicose veins of unspecified lower extremity; I10 Essential (primary) hypertension; Z88.8 Allergy status to other drugs, medicaments and biological substances; Z88.1 Allergy status to other antibiotic agents; Z88.2 Allergy status to sulfonamides; Z88.5 Allergy status to narcotic agent
CPT/HCPCS: Q0162

== ENCOUNTER 2022-08-11 11:59 | Emergency (ER) | payer OTHER ==
--- OUTSIDE RECORDS SUMMARY | 2022-08-11 12:21 | XMS REPORT | Continuity of Care Document ---
:1955 Author Organization [facility] t Address [address] [place] [address] Care Team Providers Name Role Phone Urmila [...] Clinician Unavailable Robbi Bal Attending Clinician [facility] Attending Clinician Unavailable Isaias Whiteside RN Attending Clinician Unavailable TOMY MARIE Attending Clinician Unavailable Reilly Means MD Attending Clinician Ofe Shields MD Attending Clinician Tomy Marie MD Attending Clinician Doctor Unassigned, [place] Attending Clinician Unavailable Bill COLES Attending Clinician Unavailable Bill Rose Attending Clinician CHARITY MCALLISTER Attending Clinician Unavailable Charity Mcallister MD Attending Clinician GADIEL KOEHLER Attending Clinician Unavailable Mkie Lund Attending Clinician Unavailable NIKOLAI REEVES Attending Clinician Unavailable Eliseo Arce MD Attending Clinician Carol Ann IZQUIERDO, Sarai Lieberman Attending Clinician [phone] Ashly Pelletier MA Attending Clinician Unavailable [...] RAMIREZ, Michael Corbin Attending Clinician Unavailable Team, [facility] Attending Clinician UnavailDO PORSHA Newell Attending Clinician Unavailable Gadiel Koehler MD Attending Clinician Tyrone JENKINS, Eveline Sierra Attending Clinician Eladio Colorado RN Attending Clinician Unavailable Geraldine SALGUERO, Leyda Attending Clinician [phone] Selvin RAMIREZ, Stefanie Attending Clinician Unavailable [...] Number Effective Date Expiration Date S gabino [facility] [id number] 2012 STAR PLUS OON 00:00:00 [facility] [id number] 2019 DUAL COMPLETE HMO 00:00:00 [facility] [id number] 2019 PLUS 00:00:00 [facility] [id number] 2019 [place] STAR 00:00:00 [employer] MEDICARE ADV [id number] 2019 2019 00:00:00 00:00:00 Problems Condition Condition Condition Status Onset Resolution Last Treating Co mments Source Name Details Category Date Date Treatment Clinician Date Dyspnea, Dyspnea, Disease Active Unive rs unspecifie unspecifie 02-11 it y of d type d type 00:00: [place] [address] Medical Branch Gastropare Gastropare Disease Active Overview : Methodi sis sis 4-[address] 00:00: [facility] note l might be different from the original. Added automatic ally from request for surgery [id number] Dysphagia Dysphagia Disease Active Overview: Methodi 4-[address] 00:00: g [facility] this [facility] 00 note l might be different from the original. 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 2020-10-15 Get PVI PVI 3-30 17:07:00 l ABLATION ABLATION 00:00: Patel n W/ CARTO / W/ CARTO / 00 GA / T GA / T Active 08/19/2020 [facility] Food Food Disease Active 2019-05 [...] [facility] hoxazole 1-25 Clear 00:00: Garcia 00 [facility] trimetho DA Active SV [facility] prim 1-25 Clear 00:00: Garcia [facility] codeine DA Active SV N/V [facility] 1-25 Clear 00:00: Garcia [facility] Metoclop Propensi Active [place] ramide ty to 12-12 Health adverse 00:00: reaction 00 s BUTORPHA DRUG Active Unknown-Cmnt Un matt NOL INGREDI 11-25 ity of 00:00: [place] [facility] Butorpha Drug Active Unknown - [...] 2017- Univers INGREDI 2-08 ity of 00:00: [place] [facility] TRIMETHO DRUG Active Hives Univers [...] Date Stop Date Source Natural father Diabetes [facility] Natural father Other - see comments [facility] Natural father Coronary Heart [facility] [place] Disease [facility] Hy[facility] mother [facility] Social History Social Habit Start Date Stop Date Quantity Comments Source History SDOH Taoism Alcohol Frequency Hospita l History SDOH Taoism Alcohol Std Drinks Hospit al History SDND Taoism Alcohol Binge Hospital Exposure to 2022-04-30 2022-05-10 Yes University of SARS-CoV-2 (event) 00:00:00 10:25:[address] [facility] Tobacco use and 2022-02-11 2022-02-11 Former smokeless Uni versity of exposure 00:00:00 00:00:00 tobacco user [facility] Tobacco Comment 2022-02-11 2022-02-11 Smokes approx 1-2 Un iversity of 00:00:00 00:00:00 cigarettes per [facility] day when she Branch smokes Alcohol intake 2020-12-08 2020-12-08 Current drinker [facility] 00:00:00 00:00:00 of [facility] (finding) Cigarettes smoked 2020-09-05 2020-09-[address] current (pack [facility] 00:00[facility] - [facility]orted Cigarette 2020-09-05 2020-09-05 Taoism pack-years 00:00:00 00:00:00 Hospital Alcohol Comment 2016-09-23 2016-09-23 rare Taoism 00:00:00 00:00:00 Hospital History of tobacco 2011-09-29 User of smokeless University of use 00:00:[address] [facility] Sex Assigned At [birth year] [facility] 00:00:00 00:00:00 Smoking Status Start Date Stop Date Source Ex-smoker 2022-02-11 00:00:00 2022-02-11 00:00:[address] [facility] Medications Ordered Filled Start Stop Current Ordering Indication Dosage Frequency Signature Comments Components Source Medication Medication Date Date Medication? Clinician (SIG) Name Name potassium 2021-05- No 10meq 10 mEq, IV Univers chloride in 07-11 Piggyback, i ty of water 10 20:00: 22:00 ONCE, 1 [place] mEq/100 mL 00 :00 dose, On Medic al RTU 10 mEq [facility] 05/10/22 at 1400, Administer over 60 Minutes, 100 mL magnesium 2021-05 No 800mg 800 mg, Uni vers oxide 07-11 Oral, ity of (MAG-OX 20:00: 19:37 ONCE, 1 [place] 400) tablet 00 :00 dose, On Medi porfirio 800 mg [facility] 05/10/22 at 1400, Routine KCL 2021-05 No 40meq 40 mEq, Univers (KLOR-CON 07-11 Oral, ity of M20) tablet 19:15: 19:37 ONCE, 1 [place] 40 mEq 00 :00 dose, On Medical [facility] 05/10/22 at 1315, JOE hydralAZINE 2021-05 No 10mg 10 mg, Uni vers (APRESOLINE 07-11 Slow IV ity of ) injection 18:45: 18:42 [place] 10 mg 00 :00 ONCE, 1 Medical dose, On [facility] 05/10/22 at 1245, JOE NaCl 0.9% 2021-05 No 1000mL at 999 Uni vers (NS) bolus 07-11 mL/hr, ity of infusion 17:45: 20:00 1,000 mL, [place] 1,000 mL 00 :00 IV Medical Infusion, Branch ONCE, 1 dose, On [facility] 05/10/22 at 1145, JOE cefpodoxime 2021-05- No [id number] 100mg Take 1 Univers 100 mg 2-17 12-25 tablet by ity of tablet 00:00: 05:59 mouth in [place] 00 :[address] [facility] and 1 tablet in the evening. Do all this for 7 days. cefpodoxime 2021-05- No [id number] 100mg Take 1 Univers 100 mg 2-17 12-25 tablet by ity of tablet 00:00: 05:59 mouth in [place] 00 :00 the [facility] morning [place] and 1 tablet in the evening. Do all this for 7 days. cefpodoxime 2021-05- No [id number] 100mg Take 1 Univers 100 mg 2-17 12-25 tablet by ity of tablet 00:00: 05:59 mouth in [place] 00 :00 the Medical [...] Infusion, Medical ONCE, 1 Branch dose, On [facility] 05/06/22 at 1800, JOE ketorolac 2021-05 No 15mg 15 mg, Unive rs (TORADOL) 2-15 12-15 Slow IV ity of injection 22:00: 22:19 Push, [place] 15 mg 00 :00 ONCE, 1 Medical dose, On Branch [facility] 05/06/22 at 1600, JOE NaCl 0.9% 2021-05- No 1000mL at 999 Uni vers (NS) bolus 2-15 12-15 mL/hr, ity of infusion 22:00: 23:41 1,000 mL, [place] 1,000 mL 00 :00 IV Medical Infusion, Branch ONCE, 1 dose, On [facility] 05/06/22 at 1600, JOE ondansetron 2021-05- No 8mg 8 mg, Slow Univers (ZOFRAN 2-15 12-15 IV Push, ity of (PF)) 21:15: 22:19 ONCE, 1 [place] injection 8 00 :00 dose, On Medi porfirio mg [place] 05/06/22 at 1515, JOE ondansetron 2021-05 Yes [id number] 1-2 U nivers 4 mg tablet 2-15 tablets ity o f 00:00: every 8 [place] 00 hours as Medical needed for Branch nausea benzonatate 2021-05 Yes [id number] 200mg Take 1 Univers 200 mg 2-15 capsule by ity of capsule 00:00: mouth 3 [place] 00 (three) Medical times Branch daily as needed for Cough. albuterol 2021-05 Yes [id number] 2{puff} Inhale 2 Univers 90 2-15 Puffs ity of mcg/actuati 00:00: every 4 [place] on inhaler 00 (four) Medical hours as Branch needed for Wheezing or Shortness of Breath. butalbital- 2021-05 Yes [id number] 1{tbl} Take 1 Univers acetaminoph 2-15 tablet by ity of en-caff 00:00: mouth [place] 50-325-40 00 every 4 Medical mg tablet (four) Branch hours as needed (headache) . ondansetron 2021-05 Yes [id number] 1-2 U nivers 4 mg tablet 2-15 tablets ity o f 00:00: every 8 [place] 00 hours as Medical needed for Branch nausea benzonatate 2021-05 Yes [id number] 200mg Take 1 Univers 200 mg 2-15 capsule by ity of capsule 00:00: mouth 3 [place] 00 (three) Medical times Branch daily as needed for Cough. albuterol 2021-05 Yes [id number] 2{puff} Inhale 2 Univers 90 2-15 Puffs ity of mcg/actuati 00:00: every 4 [place] on inhaler 00 (four) Medical hours as Branch needed for Wheezing or Shortness of Breath. butalbital- 2021-05 Yes [id number] 1{tbl} Take 1 Univers acetaminoph 2-15 tablet by ity of en-caff 00:00: mouth [place] 50-325-40 00 every 4 Medical mg tablet (four) Branch hours as needed (headache) . ondansetron 2021-05 Yes [id number] 1-2 U nivers 4 mg tablet 2-15 tablets ity o f 00:00: every 8 [place] 00 hours as Medical needed for Branch nausea benzonatate 2021-05 Yes [id number] 200mg Take 1 Univers 200 mg 2-15 capsule by ity of capsule 00:00: mouth 3 [place] 00 (three) Medical times Branch daily as needed for Cough. albuterol 2021-05 Yes [id number] 2{puff} Inhale 2 Univers 90 2-15 Puffs ity of mcg/actuati 00:00: every 4 [place] on inhaler 00 (four) Medical hours as Branch needed for Wheezing or Shortness of Breath. butalbital- 2021-05 Yes [id number] 1{tbl} Take 1 Univers acetaminoph 2-15 tablet by ity of en-caff 00:00: mouth [place] 50-325-40 00 every 4 Medical mg tablet (four) Branch hours as needed (headache) . ondansetron 2021-05 Yes [id number] 1-2 U nivers 4 mg tablet 2-15 tablets ity o f 00:00: every 8 [place] 00 hours as Medical needed for Branch nausea benzonatate 2021-05 Yes [id number] 200mg Take 1 Univers 200 mg 2-15 capsule by ity of capsule 00:00: mouth 3 [place] 00 (three) Medical times Branch daily as needed for Cough. albuterol 2021-05 Yes [id number] 2{puff} Inhale 2 Univers 90 2-15 Puffs ity of mcg/actuati 00:00: every 4 [place] on inhaler 00 (four) Medical hours as Branch needed for Wheezing or Shortness of Breath. butalbital- 2021-05 Yes [id number] 1{tbl} Take 1 Univers acetaminoph 2-15 tablet by ity of en-caff 00:00: mouth [place] 50-325-40 00 every 4 Medical mg tablet (four) Branch hours as needed (headache) . ondansetron 2021-05 Yes [id number] 1-2 U nivers 4 mg tablet 2-15 tablets ity o f 00:00: every 8 [place] 00 hours as Medical needed for Branch nausea benzonatate 2021-05 Yes [id number] 200mg Take 1 Univers 200 mg 2-15 capsule by ity of capsule 00:00: mouth 3 [place] 00 (three) Medical times Branch daily as needed for Cough. albuterol 2021-05 Yes [id number] 2{puff} Inhale 2 Univers 90 2-15 Puffs ity of mcg/actuati 00:00: every 4 [place] on inhaler 00 (four) Medical hours as Branch needed for Wheezing or Shortness of Breath. butalbital- 2021-05 Yes [id number] 1{tbl} Take 1 Univers acetaminoph 2-15 tablet by ity of en-caff 00:00: mouth [place] 50-325-40 00 every 4 Medical mg tablet (four) Branch hours as needed (headache) . ondansetron 2021-05 Yes [id number] 1-2 U nivers 4 mg tablet 2-15 tablets ity o f 00:00: every 8 [place] 00 hours as Medical needed for Branch nausea benzonatate 2021-05 Yes [id number] 200mg Take 1 Univers 200 mg 2-15 capsule by ity of capsule 00:00: mouth 3 [place] 00 (three) Medical times Branch daily as needed for Cough. albuterol 2021-05 Yes [id number] 2{puff} Inhale 2 Univers 90 2-15 Puffs ity of mcg/actuati 00:00: every 4 [place] on inhaler 00 (four) Medical hours as Branch needed for Wheezing or Shortness of Breath. butalbital- 2021-05 Yes [id number] 1{tbl} Take 1 Univers acetaminoph 2-15 tablet by ity of en-caff 00:00: mouth [place] 50-325-40 00 every 4 Medical mg tablet (four) Branch hours as needed (headache) . nirmatrelvi 2021-05- No [id number] 2{tbl} Take 2 Univers r-ritonavir 2-15 12-21 tablets by i ty of (PAXLOVID, 00:00: 05:59 mouth in [place] EUA,) 300 00 :00 the Medical mg (150 mg morning Branch x 2)-100 mg and 2 tablet tablets in the evening. Do all this for 5 days. nirmatrelvi 2021-05- No [id number] 2{tbl} Take 2 Univers r-ritonavir 2-15 12-21 tablets by i ty of (PAXLOVID, 00:00: 05:59 mouth in [place] EUA,) 300 00 :00 the Medical mg (150 mg morning Branch x 2)-100 mg and 2 tablet tablets in the evening. Do all this for 5 days. nirmatrelvi 2021-05- No [id number] 2{tbl} Take 2 Univers r-ritonavir 2-15 12-21 tablets by i ty of (PAXLOVID, 00:00: 05:59 mouth in [place] EUA,) 300 00 :00 the Medical mg (150 mg morning Branch x 2)-100 mg and 2 tablet tablets in the evening. Do all this for 5 days. nirmatrelvi 2021-05- No [id number] 2{tbl} Take 2 Univers r-ritonavir 2-15 - [...] 04/22/22 at 1645, Routine amoxicillin 2021-05 Yes [id number] 1{tbl} Take 1 Univers -clavulanat 2- [id number] tablet by i ty of e 875-125 00:00: mouth [place] mg per 00 every 12 Medical tablet (twelve) Branch hours. ondansetron 2021-05 Yes [id number] 4mg Take 1 Univers 4 mg 2- [id number] tablet by ity of disintegrat 00:00: mouth [place] ing tablet 00 every 8 Medica l (eight) Branch hours as needed for Nausea and Vomiting (N/V). amoxicillin 2021-05 Yes [id number] 1{tbl} Take 1 Univers -clavulanat 2- [id number] tablet by i ty of e 875-125 00:00: mouth [place] mg per 00 every 12 Medical tablet (twelve) Branch hours. ondansetron 2021-05 Yes [id number] 4mg Take 1 Univers 4 mg 2-01 [id number] tablet by ity of disintegrat 00:00: mouth [place] ing tablet 00 every 8 Medica l (eight) Branch hours as needed for Nausea and Vomiting (N/V). amoxicillin 2021-05 Yes [id number] 1{tbl} Take 1 Univers -clavulanat 2-01 [id number] tablet by i ty of e 875-125 00:00: mouth [place] mg per 00 every 12 Medical tablet (twelve) Branch hours. ondansetron 2021-05 Yes [id number] 4mg Take 1 Univers 4 mg 2-01 [id number] tablet by ity of disintegrat 00:00: mouth [place] ing tablet 00 every 8 Medica l (eight) Branch hours as needed for Nausea and Vomiting (N/V). amoxicillin 2021-05 Yes [id number] 1{tbl} Take 1 Univers -clavulanat 2-01 [id number] tablet by i ty of e 875-125 00:00: mouth [place] mg per 00 every 12 Medical tablet (twelve) Branch hours. ondansetron 2021-05 Yes [id number] 4mg Take 1 Univers 4 mg 2-01 [id number] tablet by ity of disintegrat 00:00: mouth [place] ing tablet 00 every 8 Medica l (eight) Branch hours as needed for Nausea and Vomiting (N/V). amoxicillin 2021-05 Yes [id number] 1{tbl} Take 1 Univers -clavulanat 2-01 [id number] tablet by i ty of e 875-125 00:00: mouth [place] mg per 00 every 12 Medical tablet (twelve) Branch hours. ondansetron 2021-05 Yes [id number] 4mg Take 1 Univers 4 mg 2- [id number] tablet by ity of disintegrat 00:00: mouth [place] ing tablet 00 every 8 Medica l (eight) Branch hours as needed for Nausea and Vomiting (N/V). amoxicillin 2021-05 Yes [id number] 1{tbl} Take 1 Univers -clavulanat 2-01 [id number] tablet by i ty of e 875-125 00:00: mouth [place] mg per 00 every 12 Medical tablet (twelve) Branch hours. ondansetron 2021-05 Yes [id number] 4mg Take 1 Univers 4 mg 2-01 [id number] tablet by ity of disintegrat 00:00: mouth [place] ing tablet 00 every 8 Medica l (eight) Branch hours as needed for Nausea and Vomiting (N/V). amoxicillin 2021-05 Yes [id number] 1{tbl} Take 1 Univers -clavulanat 2-01 [id number] tablet by i ty of e 875-125 00:00: mouth [place] mg per 00 every 12 Medical tablet (twelve) Branch hours. ondansetron 2021-05 Yes [id number] 4mg Take 1 Univers 4 mg 2-01 [id number] tablet by ity of disintegrat 00:00: mouth [place] ing tablet 00 every 8 Medica l (eight) Branch hours as needed for Nausea and Vomiting (N/V). amoxicillin 2021-05 Yes [id number] 1{tbl} Take 1 Univers -clavulanat 06-23 [id number] tablet by i ty of e 875-125 00:00: mouth [place] mg per 00 every 12 Medical tablet (twelve) Branch hours. ondansetron 2021-05 Yes [id number] 4mg Take 1 Univers 4 mg 06-23 [id number] tablet by ity of disintegrat 00:00: mouth [place] ing tablet 00 every 8 Medica l (eight) Branch hours as needed for Nausea and Vomiting (N/V). zoster 2021-05- No [id number] .5mL 0.5 mL by Univers vaccine, 0-14 10-15 9104 Intramuscu ity of recombinant 00:00: 04:59 lar route [place] (SHINGRIX, 00 :00 once now Medic al PF,) for 1 Branch injection dose. And repeat in 2-6 months zoster 2021-05- No [id number] .5mL 0.5 mL by Univers vaccine, 0-14 10-15 9104 Intramuscu ity of recombinant 00:00: 04:59 lar route [place] (SHINGRIX, 00 :00 once now Medic al PF,) for 1 Branch injection dose. And repeat in 2-6 months zoster 2021-05- No [id number] .5mL 0.5 mL by Univers vaccine, 0-14 [...] o f 1 mg tablet 19:28: at [place] [address] bedtime. Medical Branch traZODone 2021-0 Yes 50mg Take 50 mg Un matt 100 mg 9-27 by mouth ity of tablet 19:28: at [place] [address] bedtime. Medical Branch hydralAZINE 2021-0 Yes 25mg [...] 100 mg 04 (two) Medical tablet times [place] daily. amLODIPine 2021-0 Yes 10mg Take 10 mg U nivers (NORVASC) 9-27 by mouth ity of 10 mg 19:28: daily. [place] tablet 04 Medical Branch clonazePAM 2021-0 Yes 1mg Take 1 mg Un matt (KLONOPIN) 9-27 by mouth ity o f 1 mg tablet 19:28: at [place] [address] bedtime. Medical Branch traZODone 2021-0 Yes 50mg Take 50 mg Un matt 100 mg 9-27 by mouth ity of tablet 19:28: at [place] [address] bedtime. Medical Branch hydralAZINE 2021-0 Yes 25mg [...] o f 1 mg tablet 19:28: at [place] [address] bedtime. Medical Branch traZODone 2021-0 Yes 50mg Take 50 mg Un matt 100 mg 9-27 by mouth ity of tablet 19:28: at [place] [address] bedtime. Medical Branch hydralAZINE 2021-0 Yes 25mg [...] o f 1 mg tablet 19:28: at [place] [address] bedtime. Medical Branch traZODone 2021-0 Yes 50mg Take 50 mg Un matt 100 mg 9-27 by mouth ity of tablet 19:28: at [place] [address] bedtime. Medical Branch hydralAZINE 2021-0 Yes 25mg [...] o f 1 mg tablet 19:28: at [place] [address] bedtime. Medical Branch traZODone 2021-0 Yes 50mg Take 50 mg Un matt 100 mg 9- by mouth ity of tablet 19:28: at [place] [address] bedtime. Medical Branch hydralAZINE 2021-0 Yes 25mg [...] o f 1 mg tablet 19:28: at [place] [address] bedtime. Medical Branch traZODone 2022-0 Yes 50mg Take 50 mg Un matt 100 mg 9-27 by mouth ity of tablet 19:28: at [place] [address] bedtime. Medical Branch hydralAZINE 2-0 Yes 25mg [...] o f 1 mg tablet 19:28: at [place] [address] bedtime. Medical Branch traZODone 2-0 Yes 50mg Take 50 mg Un matt 100 mg 9-27 by mouth ity of tablet 19:28: at [place] [address] bedtime. Medical Branch hydralAZINE 2021-0 Yes 25mg [...] o f 1 mg tablet 19:28: at [place] [address] bedtime. Medical Branch traZODone 2022-0 Yes 50mg Take 50 mg Un matt 100 mg 9-27 by mouth ity of tablet 19:28: at [place] [address] bedtime. Medical Branch hydralAZINE 2-0 Yes 25mg [...] o f 1 mg tablet 19:28: at [place] [address] bedtime. Medical Branch traZODone 2-0 Yes 50mg Take 50 mg Un matt 100 mg 9-27 by mouth ity of tablet 19:28: at [place] [address] bedtime. Medical Branch hydralAZINE 2-0 Yes 25mg [...] o f 1 mg tablet 19:28: at [place] [address] bedtime. Medical Branch traZODone 2021-0 Yes 50mg Take 50 mg Un matt 100 mg 9-27 by mouth ity of tablet 19:28: at [place] [address] bedtime. Medical Branch hydralAZINE 2021-0 Yes 25mg [...] o f 1 mg tablet 19:28: at [place] [address] bedtime. Medical Branch traZODone 2021-0 Yes 50mg Take 50 mg Un matt 100 mg 9-27 by mouth ity of tablet 19:28: at [place] [address] bedtime. Medical Branch hydralAZINE 2021-0 Yes 25mg [...] o f 1 mg tablet 19:28: at [place] [address] bedtime. Medical Branch traZODone 2-0 Yes 50mg Take 50 mg Un matt 100 mg 9-27 by mouth ity of tablet 19:28: at [place] [address] bedtime. Medical Branch hydralAZINE 2-0 Yes 25mg [...] o f 1 mg tablet 19:28: at [place] [address] bedtime. Medical Branch traZODone 2021-0 Yes 50mg Take 50 mg Un matt 100 mg 9-27 by mouth ity of tablet 19:28: at [place] [address] bedtime. Medical Branch hydralAZINE 2021-0 Yes 25mg [...] o f 1 mg tablet 19:28: at [place] [address] bedtime. Medical Branch traZODone 2021-0 Yes 50mg Take 50 mg Un matt 100 mg 9-27 by mouth ity of tablet 19:28: at [place] [address] bedtime. Medical Branch hydralAZINE 2021-0 Yes 25mg [...] mouth ity of 10 mg 19:28: daily. [place] tablet 04 Medical Branch clonazePAM 2021-0 Yes 1mg Take 1 mg Un matt (KLONOPIN) 9-27 by mouth ity o f 1 mg tablet 19:28: at [place] [address] bedtime. Medical Branch traZODone 2021-0 Yes 50mg Take 50 mg Un matt 100 mg 9-27 by mouth ity of tablet 19:28: at [place] [address] bedtime. Medical Branch hydralAZINE 2021-0 Yes 25mg [...] o f 1 mg tablet 19:28: at [place] [address] bedtime. Medical Branch traZODone Yes 50mg Take 50 mg Un matt 100 mg 02-16 by mouth ity of tablet 19:28: at [place] [address] bedtime. Medical Branch cefpodoxime 2021- No [id number] 200mg Take 1 Univers 200 mg 02-16 tablet by ity of tablet 00:00: 04:59 mouth in [place] 00 :00 the Medical morning Branch and 1 tablet in the evening. Do all this for 3 days. cefpodoxime 2021- No [id number] 200mg Take 1 Univers 200 mg 02-16 tablet by ity of tablet 00:00: 04:59 mouth in [place] 00 :00 the Medical morning Branch and 1 tablet in the evening. Do all this for 3 days. haloperidol 2021- No 2mg 2 mg, Slow Univers lactate 02-15 IV Push, ity of (HALDOL) 09:00: 09:12 ONCE, 1 [place] injection 2 00 :00 dose, On Medi porfirio mg Mon Branch 02/15/22 at 0400, Routine hydroCHLORO Yes 25mg 25 mg, Univ ers thiazide 9-25 Oral, ity of (ESIDRIX) 14:00: DAILY, [place] capsule 25 00 First dose Med ical mg on [place] Branch 02/14/22 at 0900, Until Discontinu ed, Routine butalbital- Yes 1{tbl} 1 tablet, Univers acetaminoph - Oral, ity of en-caff 18:46: Q6HPRN, [place] (ESGIC) 06 Starting Medical 50-325-40 on Sat [...] (MYCOLOG) 19:00: dose on [place] cream 00 [facility] Medical 02/11/22 at Branch 1400, Until Discontinu ed, Routine busPIRone 202-0 Yes 30mg 30 mg, Univer s (BUSPAR) 02-11 Oral, BID, ity o f tablet 30 18:00: First dose [place] mg 00 on [facility] Medical 02/11/22 at Branch 1300, Until Discontinu ed, Routine raltegravir 2021-0 Yes 400mg 400 mg, Un matt (ISENTRESS) 02-11 Oral, BID, it y of tablet 400 18:00: First dose [place] mg 00 on [facility] Medical 02/11/22 at Branch 1300, Until Discontinu ed, JOE metoprolol 2021-0 Yes 100mg 100 mg, Uni vers tartrate 02-11 Oral, BID, ity o f (LOPRESSOR) 18:00: First dose [place] tablet 100 00 on [facility] mg 02/11/22 at Branch 1300, Until Discontinu ed, Routine lisinopriL 2021-0 Yes 40mg 40 mg, Unive rs (PRINIVIL,Z 02-11 Oral, BID, it y of ESTRIL) 18:00: First dose [place] tablet 40 00 on [facility] mg 02/11/22 at Branch 1300, Until Discontinu ed, Routine emtricitabi 2021-0 Yes 1{tbl} 1 [facility] Oral, ity of r alafen 18:00: DAILY, [place] (DESCOVY) 00 First dose Medi porfirio tablet 1 on [facility] tablet 02/11/22 at 1300, Until Discontinu ed, Routine ipratropium 2021-0 Yes .5mg 0.5 mg, Uni vers (ATROVENT) 02-11 Inhalation ity of 0.02 % 17:57: , MERY, [place] nebulizer 10 Starting Medica l solution on [facility] Branch 0.5 mg 02/11/22 at [...] (after Branch last modificati on) on [facility] 02/11/22 at 1230, Until Discontinu ed, Routine HYDROcodone 2021- No 1{tbl} 1 tablet, Univers -acetaminop 02-11 Oral, ity of hen (NORCO 14:11: 17:37 Q6HPRN, [place] 5) 5-325 mg 03 :24 Starting Medi porfirio tablet 1 on [facility] Branch tablet 02/11/22 at 0911, Until Tue02/12/22 at 1237, Routine, Pain (scale 7-10) melatonin Yes 3mg 3 mg, Univers (MELATIN) 02-11 Oral, ity of tablet 3 mg 14:08: QHSPRN, [place] 17 Starting Medical on [facility] 02/11/22 at 0908, Until Discontinu ed, Routine, Insomnia acetaminoph 2021- No 1{tbl} 1 tablet, Univers en-codeine 02-11 Oral, ity of (TYLENOL 14:06: 17:37 Q6HPN, [place] #3) 300-30 19 :24 Starting Medic al mg tablet 1 on [facility] tablet 02/11/22 at 0906, Until Tue02/12/22 at 1237, Routine, Pain (scale 4-6) sennosides- Yes 1{tbl} 1 tablet, Univers docusate 02-11 Oral, ity of sodium 14:06: QDAILYPRN, [place] (SENOKOT-S) 09 Starting Medi porfirio 8.6-50 mg on [facility] per tablet 02/11/22 at [...] ity of ) 25 mg 09:10: daily. [place] tablet 54 [facility] amLODIPine 0 Yes 10mg Take 10 mg U nivers (NORVASC) 02-11 by mouth ity of 10 mg 09:10: daily. [place] tablet 54 [facility] piperacilli 2021- No 3.375g 3.375 [...] of therapy: 72 hours iopamidol 2- No [id number] 60mL 60 mL, Univers (ISOVUE 02-11 Intravenou [...] 00 :00 dose, On Medi porfirio mg [facility] 02/11/22 at 0045, JOE acetaminoph 2021- No 975mg 975 mg, U nivers en 02-11 Oral, ity of (TYLENOL) 05:15: 04:19 ONCE, 1 [place] 975 00 :00 dose, On Medic al mg [facility] 02/11/22 at 0015, JOE emtricitabi 0 Yes [id number] Take one Univers ne-tenofovi 9-12 po daily ity of r alafen 00:00: [place] (DESCOVY) 00 Medical tablet Branch emtricitabi 0 Yes [id number] Take one Univers ne-tenofovi 9-12 po daily ity of r alafen 00:00: [place] (DESCOVY) Medical tablet Branch emtricitabi 0 Yes [id number] Take one Univers ne-tenofovi 9-12 po daily ity of r alafen 00:00: [place] (DESCOVY) 00 Medical tablet Branch emtricitabi 0 Yes [id number] Take one Univers ne-tenofovi 9-12 po daily ity of r alafen 00:00: [place] (DESCOVY) 00 Medical tablet Branch emtricitabi Yes [id number] Take one Univers ne-tenofovi 9-12 po daily ity of r alafen 00:00: [place] (DESCOVY) 00 Medical tablet Branch emtricita Yes [id number] Take one Univers ne-tenofovi 9-12 po daily ity of r alafen 00:00: [place] (DESCOVY) 00 Medical tablet Branch emtricita Yes [id number] Take one Univers ne-tenofovi 9-12 po daily ity of r alafen 00:00: [place] (DESCOVY) 00 Medical tablet Branch emtricita Yes [id number] Take one Univers ne-tenofovi 9-12 po daily ity of r alafen 00:00: [place] (DESCOVY) 00 Medical tablet Branch emtricita Yes [id number] Take one Univers ne-tenofovi 9-12 po daily ity of r alafen 00:00: [place] (DESCOVY) 00 Medical tablet [facility] [id number] Take one Univers ne-tenofovi 9-12 po daily ity of r alafen 00:00: [place] (DESCOVY) 00 Medical tablet [facility] [id number] Take one Univers ne-tenofovi 9-12 po daily ity of r alafen 00:00: [place] (DESCOVY) 00 Medical tablet Branch emtricita Yes [id number] Take one Univers ne-tenofovi 9-12 po daily ity of r alafen 00:00: [place] (DESCOVY) 00 Medical tablet Branch emtricita Yes [id number] Take one Univers ne-tenofovi 9-12 po daily ity of r alafen 00:00: [place] (DESCOVY) 00 Medical tablet Branch emtricita Yes [id number] Take one Univers ne-tenofovi 9-12 po daily ity of r alafen 00:00: [place] (DESCOVY) 00 Medical tablet Branch emtricita Yes [id number] Take one Univers ne-tenofovi 9-12 po daily ity of r alafen 00:00: [place] (DESCOVY) 00 Medical tablet Branch emtricitabi 2021-0 Yes [id number] Take one Univers ne-tenofovi 9-12 po daily ity of r alafen 00:00: [place] (DESCOVY) Medical tablet Branch emtricitabi 2021-0 Yes [id number] Take one Univers ne-tenofovi 9-12 po daily ity of r alafen 00:00: [place] (DESCOVY) Medical tablet Branch naproxen 2021-0 Yes [id number] 500mg Take 1 U nivers (NAPROSYN) 7-24 tablet by ity of 500 mg 00:00: mouth in [place] tablet 00 the Medical morning Branch and 1 tablet in the evening. Take with meals. methocarbam 2021-0 Yes [id number] 500mg Take 1 Univers oL 500 mg 7-24 tablet by ity o f tablet 00:00: mouth 4 [place] [address] ([facility]) [facility] times [place] daily. naproxen 2021-0 Yes [id number] 500mg Take 1 U nivers (NAPROSYN) 7-24 tablet by ity of 500 mg 00:00: mouth in [place] tablet 00 the Medical morning Branch and 1 tablet in the evening. Take with meals. methocarbam 2021-0 Yes [id number] 500mg Take 1 Univers oL 500 mg 7-24 tablet by ity o f tablet 00:00: mouth 4 [place] ([facility]) [facility] times [place] daily. naproxen 2021-0 Yes [id number] 500mg Take 1 U nivers (NAPROSYN) 7-24 tablet by ity of 500 mg 00:00: mouth in [place] tablet 00 the Medical morning Branch and 1 tablet in the evening. Take with meals. methocarbam 2021-0 Yes [id number] 500mg Take 1 Univers oL 500 mg 7-24 tablet by ity o f tablet 00:00: mouth 4 [place] ([facility]) [facility] times [place] daily. naproxen 2021-0 2022- No [id number] 500mg Take 1 Univers (NAPROSYN) 7-24 10-14 tablet by ity of 500 mg 00:00: 00:00 mouth in [place] tablet 00 :00 the Medical morning Branch and 1 tablet in the evening. Take with meals. methocarbam 2021-0 2022- No [id number] 500mg Take 1 Univers oL 500 mg 7-24 10-14 tablet by ity of tablet 00:00: 00:00 mouth 4 [place] 00 :00 (four) Medical times Branch daily. naproxen 2021- No [id number] 500mg Take 1 Univers (NAPROSYN) 12-13 tablet by ity of 500 mg 00:00: 00:00 mouth in [place] tablet 00 :00 the Medical morning Branch and 1 tablet in the evening. Take with meals. methocarbam 2021- No [id number] 500mg Take 1 Univers oL 500 mg [...] ty of mg tablet 09:11: 00:00 (two) [place] 35 :00 times Medical daily. Branch traZODONE 2021- No Take by [facility] ers (DESYREL) 11-20 mouth at ity o f 10 mg/mL 09:10: 00:00 [place]time. [place] oral 28 :00 Medical suspension Branch hydralAZINE Yes 25mg Take 25 mg Univers (APRESOLINE 11-20 by mouth ity of ) 25 mg 08:47: daily. [place] tablet 47 Medical Branch cephALEXin 2021- No [id number] 500mg Take 1 Univers (KEFLEX) 10-24 capsule [...] Indication s: acute pain buPROPion 0 Yes [id number] 150mg Take 1 U nivers XL 4-12 tablet by ity of (WELLBUTRIN 00:00: mouth [place] XL) 150 mg 00 daily. Medical 24 hr Branch tablet busPIRone 2021-0 Yes [id number] 30mg Take 1 Un matt 30 mg 4-12 tablet by ity of tablet 00:00: mouth 2 [place] 00 (two) Medical times Branch daily. SERTraline 2021-0 Yes [id number] 200mg Take 2 [facility] 100 mg 4-12 tablets by ity of tablet 00:00: mouth [place] 00 daily. Medical Branch buPROPion 0 Yes [id number] 150mg Take 1 U nivers XL 4-12 tablet by ity of (WELLBUTRIN 00:00: mouth [place] XL) 150 mg 00 daily. Medical 24 hr Branch tablet busPIRone 2021-0 Yes [id number] 30mg Take 1 Un matt 30 mg 4-12 tablet by ity of tablet 00:00: mouth 2 [place] 00 (two) Medical times Branch daily. SERTraline 2021-0 Yes [id number] 200mg Take 2 [facility] 100 mg 4-12 tablets by ity of tablet 00:00: mouth [place] 00 daily. Medical Branch buPROPion 2021-0 Yes [id number] 150mg Take 1 U nivers XL 4-12 tablet by ity of (WELLBUTRIN 00:00: mouth [place] XL) 150 mg 00 daily. Medical 24 hr Branch tablet busPIRone 2021-0 Yes [id number] 30mg Take 1 Un matt 30 mg 4-12 tablet by ity of tablet 00:00: mouth 2 [place] 00 (two) Medical times Branch daily. SERTraline 2021-0 Yes [id number] 200mg Take 2 [facility] 100 mg 4-12 tablets by ity of tablet 00:00: mouth [place] 00 daily. Medical Branch buPROPion 2021-0 Yes [id number] 150mg Take 1 U nivers XL 4-12 tablet by ity of (WELLBUTRIN 00:00: mouth [place] XL) 150 mg 00 daily. Medical 24 hr Branch tablet busPIRone 2021-0 Yes [id number] 30mg Take 1 Un matt 30 mg 4-12 tablet by ity of tablet 00:00: mouth 2 [place] 00 (two) Medical times Branch daily. SERTraline 0 Yes [id number] 200mg Take 2 Univers 100 mg 4-12 tablets by ity of tablet 00:00: mouth [place] 00 daily. Medical Branch buPROPion 0 Yes [id number] 150mg Take 1 U nivers XL 4-12 tablet by ity of (WELLBUTRIN 00:00: mouth [place] XL) 150 mg 00 daily. Medical 24 hr Branch tablet busPIRone 2021-0 Yes [id number] 30mg Take 1 Un matt 30 mg 4-12 tablet by ity of tablet 00:00: mouth 2 (two) Medical times Branch daily. SERTraline 0 Yes [id number] 200mg Take 2 Univers 100 mg 4-12 tablets by ity of tablet 00:00: mouth [place] 00 daily. Medical Branch buPROPion 0 Yes [id number] 150mg Take 1 U nivers XL 4-12 tablet by ity of (WELLBUTRIN 00:00: mouth [place] XL) 150 mg 00 daily. Medical 24 hr Branch tablet busPIRone 2021-0 Yes [id number] 30mg Take 1 Un matt 30 mg 4-12 tablet by ity of tablet 00:00: mouth 2 00 (two) Medical times Branch daily. SERTraline 2021-0 Yes [id number] 200mg Take 2 Univers 100 mg 4-12 tablets by ity of tablet 00:00: mouth [place] 00 daily. Medical Branch buPROPion 2021-0 Yes [id number] 150mg Take 1 U nivers XL 4-12 tablet by ity of (WELLBUTRIN 00:00: mouth [place] XL) 150 mg 00 daily. Medical 24 hr Branch tablet busPIRone 2021-0 Yes [id number] 30mg Take 1 Un matt 30 mg 4-12 tablet by ity of tablet 00:00: mouth 2 00 (two) Medical times Branch daily. SERTraline 2021-0 Yes [id number] 200mg Take 2 [facility] 100 mg 4-12 tablets by ity of tablet 00:00: mouth [place] 00 daily. Medical Branch buPROPion 2021-0 Yes [id number] 150mg Take 1 U nivers XL 4-12 tablet by ity of (WELLBUTRIN 00:00: mouth [place] XL) 150 mg 00 daily. Medical 24 hr Branch tablet busPIRone 2021-0 Yes [id number] 30mg Take 1 Un matt 30 mg 4-12 tablet by ity of tablet 00:00: mouth 2 [place] 00 (two) Medical times Branch daily. SERTraline 2021-0 Yes [id number] 200mg Take 2 [facility] 100 mg 4-12 tablets by ity of tablet 00:00: mouth [place] 00 daily. Medical Branch buPROPion 2021-0 Yes [id number] 150mg Take 1 U nivers XL 4-12 tablet by ity of (WELLBUTRIN 00:00: mouth [place] XL) 150 mg 00 daily. Medical 24 hr Branch tablet busPIRone 2021-0 Yes [id number] 30mg Take 1 Un matt 30 mg 4-12 tablet by ity of tablet 00:00: mouth 2 [place] (two) Medical times Branch daily. SERTraline 2021-0 Yes [id number] 200mg Take 2 [facility] 100 mg 4-12 tablets by ity of tablet 00:00: mouth [place] 00 daily. Medical Branch buPROPion 2021-0 Yes [id number] 150mg Take 1 U nivers XL 4-12 tablet by ity of (WELLBUTRIN 00:00: mouth [place] XL) 150 mg 00 daily. Medical 24 hr Branch tablet busPIRone 2021-0 Yes [id number] 30mg Take 1 Un matt 30 mg 4-12 tablet by ity of tablet 00:00: mouth 2 [place] 00 (two) Medical times Branch daily. SERTraline 2021-0 Yes [id number] 200mg Take 2 [facility] 100 mg 4-12 tablets by ity of tablet 00:00: mouth [place] 00 daily. Medical Branch buPROPion 2021-0 Yes [id number] 150mg Take 1 U nivers XL 4-12 tablet by ity of (WELLBUTRIN 00:00: mouth [place] XL) 150 mg 00 daily. Medical 24 hr Branch tablet busPIRone 2021-0 Yes [id number] 30mg Take 1 Un matt 30 mg 4-12 tablet by ity of tablet 00:00: mouth 2 [place] 00 (two) Medical times Branch daily. SERTraline 2021-0 Yes [id number] 200mg Take 2 [facility] 100 mg 4-12 tablets by ity of tablet 00:00: mouth [place] 00 daily. Medical Branch buPROPion 2021-0 Yes [id number] 150mg Take 1 U nivers XL 4-12 tablet by ity of (WELLBUTRIN 00:00: mouth [place] XL) 150 mg 00 daily. Medical 24 hr Branch tablet busPIRone 2021-0 Yes [id number] 30mg Take 1 Un matt 30 mg 4-12 tablet by ity of tablet 00:00: mouth 2 [place] 00 (two) Medical times Branch daily. SERTraline 2021-0 Yes [id number] 200mg Take 2 Univers 100 mg 4-12 tablets by ity of tablet 00:00: mouth [place] 00 daily. Medical Branch buPROPion 2021-0 Yes [id number] 150mg Take 1 U nivers XL 4-12 tablet by ity of (WELLBUTRIN 00:00: mouth [place] XL) 150 mg 00 daily. Medical 24 hr Branch tablet busPIRone 2021-0 Yes [id number] 30mg Take 1 Un matt 30 mg 4-12 tablet by ity of tablet 00:00: mouth 2 00 (two) Medical times Branch daily. SERTraline 2021-0 Yes [id number] 200mg Take 2 Univers 100 mg 4-12 tablets by ity of tablet 00:00: mouth [place] 00 daily. Medical Branch buPROPion 2021-0 Yes [id number] 150mg Take 1 U nivers XL 4-12 tablet by ity of (WELLBUTRIN 00:00: mouth [place] XL) 150 mg 00 daily. Medical 24 hr Branch tablet busPIRone 2021-0 Yes [id number] 30mg Take 1 Un matt 30 mg 4-12 tablet by ity of tablet 00:00: mouth 2 [place] 00 (two) Medical times Branch daily. SERTraline 2021-0 Yes [id number] 200mg Take 2 Univers 100 mg 4-12 tablets by ity of tablet 00:00: mouth [place] 00 daily. Medical Branch buPROPion 2021-0 Yes [id number] 150mg Take 1 U nivers XL 4-12 tablet by ity of (WELLBUTRIN 00:00: mouth [place] XL) 150 mg 00 daily. Medical 24 hr Branch tablet busPIRone 2021-0 Yes [id number] 30mg Take 1 Un matt 30 mg 4-12 tablet by ity of tablet 00:00: mouth 2 [place] 00 (two) Medical times Branch daily. SERTraline 2021-0 Yes [id number] 200mg Take 2 [facility] 100 mg 4-12 tablets by ity of tablet 00:00: mouth [place] 00 daily. Medical Branch buPROPion 2021-0 Yes [id number] 150mg Take 1 U nivers XL 4-12 tablet by ity of (WELLBUTRIN 00:00: mouth [place] XL) 150 mg 00 daily. Medical 24 hr Branch tablet busPIRone 2021-0 Yes [id number] 30mg Take 1 Un matt 30 mg 4-12 tablet by ity of tablet 00:00: mouth 2 [place] 00 (two) Medical times Branch daily. SERTraline 0 Yes [id number] 200mg Take 2 Univers 100 mg 4-12 tablets by ity of tablet 00:00: mouth [place] 00 daily. Medical Branch buPROPion 2021-0 Yes [id number] 150mg Take 1 U nivers XL 4-12 tablet by ity of (WELLBUTRIN 00:00: mouth [place] XL) 150 mg 00 daily. Medical 24 hr Branch tablet busPIRone 2021-0 Yes [id number] 30mg Take 1 Un matt 30 mg 4-12 tablet by ity of tablet 00:00: mouth 2 [place] 00 (two) Medical times Branch daily. SERTraline 2021-0 Yes [id number] 200mg Take 2 Univers 100 mg 4-12 tablets by ity of tablet 00:00: mouth [place] 00 daily. Medical Branch buPROPion 2021-0 Yes [id number] 150mg Take 1 U nivers XL 4-12 tablet by ity of (WELLBUTRIN 00:00: mouth [place] XL) 150 mg 00 daily. Medical 24 hr Branch tablet busPIRone 2021-0 Yes [id number] 30mg Take 1 Un matt 30 mg 4-12 tablet by ity of tablet 00:00: mouth 2 [place] 00 (two) Medical times Branch daily. SERTraline 2021-0 Yes [id number] 200mg Take 2 [facility] 100 mg 4-12 tablets by ity of tablet 00:00: mouth [place] 00 daily. Medical Branch raltegravir 2022-0 Yes [id number] 400mg Take 1 Univers (ISENTRESS) 3-28 tablet by ity of 400 mg 00:00: mouth 2 [place] tablet 00 (two) Medical times Branch daily. raltegravir 2-0 Yes [id number] 400mg Take 1 Univers (ISENTRESS) 3-28 tablet by ity of 400 mg 00:00: mouth 2 [place] tablet 00 (two) Medical times Branch daily. raltegravir 2-0 Yes [id number] 400mg Take 1 Univers (ISENTRESS) 3-28 tablet by ity of 400 mg 00:00: mouth 2 [place] tablet 00 (two) Medical times Branch daily. raltegravir 2021-0 Yes [id number] 400mg Take 1 Univers (ISENTRESS) 3-28 tablet by ity of 400 mg 00:00: mouth 2 [place] tablet 00 (two) Medical times Branch daily. raltegravir 2021-0 Yes [id number] 400mg Take 1 [facility] (ISENTRESS) 3-28 tablet by ity of 400 mg 00:00: mouth 2 [place] tablet 00 (two) Medical times Branch daily. raltegravir 2021-0 Yes [id number] 400mg Take 1 Univers (ISENTRESS) 3-28 tablet by ity of 400 mg 00:00: mouth 2 [place] tablet 00 (two) Medical times Branch daily. raltegravir 2021-0 Yes [id number] 400mg Take 1 Univers (ISENTRESS) 3-28 tablet by ity of 400 mg 00:00: mouth 2 [place] tablet 00 (two) Medical times Branch daily. raltegravir 2-0 Yes [id number] 400mg Take 1 Univers (ISENTRESS) 3-28 tablet by ity of 400 mg 00:00: mouth 2 [place] tablet 00 (two) Medical times Branch daily. raltegravir 2-0 Yes [id number] 400mg Take 1 Univers (ISENTRESS) 3-28 tablet by ity of 400 mg 00:00: mouth 2 [place] tablet 00 (two) Medical times Branch daily. raltegravir 2-0 Yes [id number] 400mg Take 1 Univers (ISENTRESS) 3-28 tablet by ity of 400 mg 00:00: mouth 2 [place] tablet 00 (two) Medical times Branch daily. raltegravir 2-0 Yes [id number] 400mg Take 1 Univers (ISENTRESS) 3-28 tablet by ity of 400 mg 00:00: mouth 2 [place] tablet 00 (two) Medical times Branch daily. raltegravir 2021-0 Yes [id number] 400mg Take 1 Univers (ISENTRESS) 3-28 tablet by ity of 400 mg 00:00: mouth 2 [place] tablet 00 (two) Medical times Branch daily. raltegravir 2021-0 Yes [id number] 400mg Take 1 Univers (ISENTRESS) 3-28 tablet by ity of 400 mg 00:00: mouth 2 [place] tablet 00 (two) Medical times Branch daily. raltegravir 2021-0 Yes [id number] 400mg Take 1 Univers (ISENTRESS) 3-28 tablet by ity of 400 mg 00:00: mouth 2 [place] tablet 00 (two) Medical times Branch daily. raltegravir 2021-0 Yes [id number] 400mg Take 1 Univers (ISENTRESS) 3-28 tablet by ity of 400 mg 00:00: mouth 2 [place] tablet 00 (two) Medical times Branch daily. raltegravir 2021-0 Yes [id number] 400mg Take 1 Univers (ISENTRESS) 3-28 tablet by ity of 400 mg 00:00: mouth 2 [place] tablet 00 (two) Medical times Branch daily. raltegravir 2021-0 Yes [id number] 400mg Take 1 Univers (ISENTRESS) 3-28 tablet by ity of 400 mg 00:00: mouth 2 [place] tablet 00 (two) Medical times Branch daily. raltegravir 2021-0 Yes [id number] 400mg Take 1 Univers (ISENTRESS) 3-28 tablet by ity of 400 mg 00:00: mouth 2 [place] tablet 00 (two) Medical times Branch daily. LORazepam 1 2021-0 2021- No [id number] 1mg Take 1 Univers mg tablet 3-21 [...] times a tablet day. emtricitabi 202- No [id number] Take one [facility] ne-tenofovi -20 09-12 po daily ity of r alafen 00:00: 00:00 [place] (DESCOVY) 00 :00 Medical tablet Branch metoprolol Yes [id number] Take 1 [place] tartrate 7-26 tablet Health (Lopressor) 00:00: (100 mg 100 MG 00 total) by tablet mouth 2 (two) times a day AND 0.5 tablets (50 mg total) every night. metoprolol Yes [id number] Take 1 [place] tartrate 7-26 tablet Health [...] (affected area in groin) hydrALAZINE Yes 50mg Q.[id number] Take 50 mg [facility] (APRESOLINE 7-19 [id number] [facility] mouth [facility] ) 50 MG [...] (affected area in groin) hydrALAZINE Yes 50mg Q.[id number] Take 50 mg [facility] (APRESOLINE 7-19 [id number] [facility] mouth [facility] ) 50 MG [...] (affected area in groin) hydrALAZINE Yes 50mg Q.[id number] Take 50 mg [facility] (APRESOLINE 7-19 [id number] [facility] mouth [facility] ) 50 MG [...] area in groin) hydrALAZINE 0 Yes 50mg Q.[id number] Take 50 mg [facility] (APRESOLINE 7-19 [id number] mouth [facility] ) 50 MG [...] area in groin) hydrALAZINE 0 Yes 50mg Q.[id number] Take 50 mg [facility] (APRESOLINE 7-19 [id number] [facility] mouth [facility] ) 50 MG [...] (affected area in groin) hydrALAZINE Yes 50mg Q.[id number] Take 50 mg [facility] (APRESOLINE 7-19 [id number] [address] mouth [facility] ) 50 MG [...] (affected area in groin) hydrALAZINE Yes 50mg Q.[id number] Take 50 mg [facility] (APRESOLINE 7-[id number] mouth [facility] ) 50 MG [...] area in groin) hydrALAZINE 0 Yes 50mg Q.[id number] Take 50 mg [facility] (APRESOLINE 7-19 [id number] [address] mouth [facility] ) 50 MG [...] (affected area in groin) hydrALAZINE Yes 50mg Q.[id number] Take 50 mg [facility] (APRESOLINE 7-[id number] mouth [facility] [address] ) 50 MG [...] (affected area in groin) hydrALAZINE Yes 50mg Q.[id number] Take 50 mg [facility] (APRESOLINE 7-19 [id number] mouth [facility] ) 50 MG [...] area in groin) hydrALAZINE 0 Yes 50mg Q.[id number] Take 50 mg [facility] (APRESOLINE 7-19 [id number] mouth [facility] ) 50 MG [...] (affected area in groin) hydrALAZINE Yes 50mg Q.[id number] Take 50 mg [facility] (APRESOLINE 7-19 [id number] [address] mouth [facility] ) 50 MG [...] (affected area in groin) hydrALAZINE Yes 50mg Q.[id number] Take 50 mg [facility] (APRESOLINE 7-19 [id number] mouth [facility] ) 50 MG [...] (affected area in groin) hydrALAZINE Yes 50mg Q.[id number] Take 50 mg [facility] (APRESOLINE 7-19 [id number] [address] mouth [facility] ) 50 MG [...] area in groin) hydrALAZINE 0 Yes 50mg Q.[id number] Take 50 mg [facility] (APRESOLINE 7-[id number] mouth [facility] ) 50 MG [...] (affected area in groin) hydrALAZINE Yes 50mg Q.[id number] Take 50 mg [facility] (APRESOLINE 7-19 [id number] mouth [facility] [address] ) 50 MG [...] area in groin) hydrALAZINE 0 Yes 50mg Q.[id number] Take 50 mg [facility] (APRESOLINE 7-19 [id number] mouth [facility] [address] ) 50 MG [...] area in groin) hydrALAZINE 0 Yes 50mg Q.[id number] Take 50 mg [facility] (APRESOLINE 7-19 [id number] [address] mouth [facility] ) 50 MG [...] (affected area in groin) hydrALAZINE Yes 50mg Q.[id number] Take 50 mg [facility] (APRESOLINE 7-19 [id number] mouth [facility] [address] ) 50 MG [...] area in groin) hydrALAZINE 0 Yes 50mg Q.[id number] Take 50 mg [facility] (APRESOLINE 7-[id number] mouth [address] ) 50 MG [...] area in groin) hydrALAZINE 2020-0 Yes 50mg Q.[id number] Take 50 mg [facility] (APRESOLINE 7-[id number] mouth [facility] [address] ) 50 MG [...] (affected area in groin) hydrALAZINE Yes 50mg Q.[id number] Take 50 mg [facility] (APRESOLINE 7-[id number] mouth [address] ) 50 MG [...] (affected area in groin) hydrALAZINE Yes 50mg Q.[id number] Take 50 mg [facility] (APRESOLINE 7-[id number] mouth [facility] [address] ) 50 MG [...] area in groin) hydrALAZINE 0 Yes 50mg Q.[id number] Take 50 mg [facility] (APRESOLINE 7-[id number] mouth [facility] [address] ) 50 MG [...] (affected area in groin) hydrALAZINE Yes 50mg Q.[id number] Take 50 mg [facility] (APRESOLINE 7-[id number] mouth [facility] ) 50 MG [...] (affected area in groin) hydrALAZINE Yes 50mg Q.[id number] Take 50 mg [facility] (APRESOLINE 7-19 [id number] mouth [facility] ) 50 MG [...] area in groin) hydrALAZINE 0 Yes 50mg Q.[id number] Take 50 mg [facility] (APRESOLINE 7-19 [id number] [address] mouth [facility] ) 50 MG [...] (affected area in groin) hydrALAZINE Yes 50mg Q.[id number] Take 50 mg [facility] (APRESOLINE 7-[id number] mouth [facility] [address] ) 50 MG [...] (affected area in groin) hydrALAZINE Yes 50mg Q.[id number] Take 50 mg [facility] (APRESOLINE 7-[id number] mouth [address] ) 50 MG [...] area in groin) hydrALAZINE 0 Yes 50mg Q.[id number] Take 50 mg [facility] (APRESOLINE 7-[id number] mouth [address] ) 50 MG [...] area in groin) hydrALAZINE 0 Yes 50mg Q.[id number] Take 50 mg [facility] (APRESOLINE 7-[id number] mouth [address] ) 50 MG [...] area in groin) hydrALAZINE 0 Yes 50mg Q.[id number] Take 50 mg [facility] (APRESOLINE 7-19 [id number] mouth [facility] [address] ) 50 MG [...] (affected area in groin) hydrALAZINE Yes 50mg Q.[id number] Take 50 mg [facility] (APRESOLINE 7-[id number] mouth [address] ) 50 MG [...] area in groin) hydrALAZINE 2021-0 Yes 50mg Q.[id number] Take 50 mg [facility] (APRESOLINE 7-[id number] mouth [address] ) 50 MG [...] (affected area in groin) hydrALAZINE Yes 50mg Q.[id number] Take 50 mg [facility] (APRESOLINE 7-[id number] mouth [address] ) 50 MG [...] (affected area in groin) hydrALAZINE Yes 50mg Q.[id number] Take 50 mg [facility] (APRESOLINE 7-[id number] mouth [address] ) 50 MG [...] area in groin) hydrALAZINE 0 Yes 50mg Q.[id number] Take 50 mg [facility] (APRESOLINE 7-[id number] mouth [address] ) 50 MG [...] (affected area in groin) hydrALAZINE Yes 50mg Q.[id number] Take 50 mg [facility] (APRESOLINE 7-[id number] mouth [address] ) 50 MG [...] (affected area in groin) hydrALAZINE Yes 50mg Q.[id number] Take 50 mg [facility] (APRESOLINE 7-[id number] mouth [address] ) 50 MG [...] area in groin) hydrALAZINE 0 Yes 50mg Q.[id number] Take 50 mg [facility] (APRESOLINE 7-[id number] mouth [address] ) 50 MG [...] area in groin) hydrALAZINE 0 Yes 50mg Q.[id number] Take 50 mg [facility] (APRESOLINE 7-[id number] mouth [facility] ) 50 MG [...] [facility] tablet 25 l nystatin-tr 2021-0 Yes [id number] Apply to [facility] iamcinolone 7-06 area(s) 3 ity of cream 00:00: (three) [place] 00 times Medical daily. Branch nystatin-tr 2021-0 Yes [id number] Apply to [facility] iamcinolone 7-06 area(s) 3 ity of cream 00:00: (three) [place] 00 times Medical daily. Branch nystatin-tr 2021-0 Yes [id number] Apply to [facility] iamcinolone 7-06 area(s) 3 ity of cream 00:00: (three) [place] 00 times Medical daily. Branch nystatin-tr 2021-0 Yes [id number] Apply to [facility] iamcinolone 7-06 area(s) 3 ity of cream 00:00: (three) [place] 00 times Medical daily. Branch nystatin-tr 2021-0 Yes [id number] Apply to [facility] iamcinolone 7-06 area(s) 3 ity of cream 00:00: (three) [place] 00 times Medical daily. Branch nystatin-tr 2021-0 Yes [id number] Apply to [facility] iamcinolone 7-06 area(s) 3 ity of cream 00:00: (three) [place] 00 times Medical daily. Branch nystatin-tr 2021-0 Yes [id number] Apply to [facility] iamcinolone 7-06 area(s) 3 ity of cream 00:00: (three) [place] 00 times Medical daily. Branch nystatin-tr 2021-0 Yes [id number] Apply to [facility] iamcinolone 7-06 area(s) 3 ity of cream 00:00: (three) [place] 00 times Medical daily. Branch nystatin-tr 2021-0 Yes [id number] Apply to [facility] iamcinolone 7-06 area(s) 3 ity of cream 00:00: (three) [place] 00 times Medical daily. Branch nystatin-tr 2021-0 Yes [id number] Apply to [facility] iamcinolone 7-06 area(s) 3 ity of cream 00:00: (three) [place] 00 times Medical daily. Branch nystatin-tr 1-0 Yes [id number] Apply to [facility] iamcinolone 7-06 area(s) 3 ity of cream 00:00: (three) [place] 00 times Medical daily. Branch nystatin-tr 2021-0 Yes [id number] Apply to [facility] iamcinolone 7-06 area(s) 3 ity of cream 00:00: (three) [place] 00 times Medical daily. Branch nystatin-tr 2021-0 Yes [id number] Apply to [facility] iamcinolone 7-06 area(s) 3 ity of cream 00:00: (three) [place] 00 times Medical daily. Branch nystatin-tr 2021-0 Yes [id number] Apply to [facility] iamcinolone 7-06 area(s) 3 ity of cream 00:00: (three) [place] 00 times Medical daily. Branch nystatin-tr 1-0 Yes [id number] Apply to [facility] iamcinolone 7-06 area(s) 3 ity of cream 00:00: (three) [place] 00 times Medical daily. Branch nystatin-tr 1-0 Yes [id number] Apply to [facility] iamcinolone 7-06 area(s) 3 ity of cream 00:00: (three) [place] 00 times Medical daily. Branch nystatin-tr 1-0 Yes [id number] Apply to [facility] iamcinolone 7-06 area(s) 3 ity of cream 00:00: (three) [place] 00 times Medical daily. Branch nystatin-tr 1-0 Yes [id number] Apply to [facility] iamcinolone 7-06 area(s) 3 ity of cream 00:00: (three) [place] 00 times Medical daily. Branch budesonide- 2020-0 2020- No 1{puff} QD Inhale 1 Methodi formoteroL 6-25 06-[address] (SYMBICORT) 14:37: 00:00 morning. H ospita 160-4.5 02 :00 l mcg/actuati on inhaler hydrALAZINE 2020-0 Yes [id number] 50mg [id number] Take 1 [place] (Apresoline 6-11 [id number] tablet ( Health ) 50 MG 00:00: 3D mg total) tablet 00 by mouth 3 (three) times a day. hydrALAZINE Yes [id number] 50mg [id number] Take 1 [place] (Apresoline 10-31 [id number] tablet (50 Health ) 50 MG 00:00: [...] % 00:00: ointment 00 nystatin 2020- No [id number] Q.25D Take 5 mL Methodi (MYCOSTATIN 10-06 [...] ia 4-10 (Same as: l 14:00: Norvasc) [place] 00 emtricitabi No Notes: Caesar lisa ne 200 MG / 4-10 (Same as: l tenofovir 14:00: Descovy) Herm ariel alafenamide 00 Non-formul 25 MG Oral nancy Tablet [Descovy] pantoprazol No Notes: Caesar lisa e 4-10 Tablet l 14:00: should not Marty 00 be chewed or crushed. (Same as: Protonix) Amiodarone No Notes: Memor ia 4-10 (Same as: l 14:00: Cordarone) [place] Amlodipine No Notes: Memor ia 4-10 (Same as: l 14:00: Norvasc) [place] 00 emtricitabi No Notes: Caesar lisa ne 200 MG / 4-10 (Same as: l tenofovir 14:00: Descovy) Herm ariel alafenamide 00 Non-formul 25 MG Oral nancy Tablet [Descovy] Sertraline No Notes: Memor ia 4-10 (Same as: l 14:00: Zoloft) [place] 00 Sertraline No Notes: Memor ia 4-10 (Same as: l 14:00: Zoloft) Marty 00 pantoprazol No Notes: Caesar lisa e 4-10 Tablet l 14:00: should not Marty 00 be chewed or crushed. (Same as: Protonix) Amiodarone No Notes: Memor ia 4-10 (Same as: l 14:00: Cordarone) [place] Amlodipine No Notes: Memor ia 4-10 (Same as: l 14:00: Norvasc) Marty emtricitabi No Notes: Caesar lisa ne 200 MG / 4-10 (Same as: l tenofovir 14:00: Descovy) Herm ariel alafenamide 00 Non-formul 25 MG Oral nacny Tablet [Descovy] Sertraline No Notes: Memor ia 4-10 (Same as: l 14:00: Zoloft) [place]ison pantoprazol No Notes: Caesar lisa e 4-10 Tablet l 14:00: should not Marty 00 be chewed or crushed. (Same as: Protonix) Amiodarone No Notes: Memor ia 4-10 (Same as: l 14:00: Cordarone) Marty Amlodipine No Notes: Memor ia 4-10 (Same as: l 14:00: Norvasc) Marty emtricitabi No Notes: Caesar lsia ne 200 [...] ia 4-10 (Same as: l 14:00: Norvasc) Bison emtricitabi No Notes: Caesar lisa ne 200 MG / 4-10 (Same as: l tenofovir 14:00: Descovy) Herm ariel alafenamide 00 Non-formul 25 MG Oral nancy Tablet [Descovy] Sertraline No Notes: Memor ia 4-10 (Same as: l 14:00: Zoloft) [place] 00 pantoprazol No Notes: Caesar lisa e 4-10 Tablet l 14:00: should not [place] 00 be chewed or crushed. (Same as: Protonix) Amiodarone No Notes: Memor ia 4-10 (Same as: l 14:00: Cordarone) [place] 00 Amlodipine No Notes: Memor ia 4-10 (Same as: l 14:00: Norvasc) Marty emtricitabi No Notes: Caesar lisa ne 200 MG / 4-10 (Same as: l tenofovir 14:00: Descovy) Herm ariel alafenamide 00 Non-formul 25 MG Oral nancy Tablet [Descovy] Sertraline No Notes: Memor ia 4-10 (Same as: l 14:00: Zoloft) [place] 00 pantoprazol No Notes: Caesar lisa e 4-10 Tablet l 14:00: should not Marty 00 be chewed or crushed. (Same as: Protonix) Amiodarone No Notes: Memor ia 4-10 (Same as: l 14:00: Cordarone) [place] Amlodipine No Notes: Memor ia 4-10 (Same as: l 14:00: Norvasc) [place] 00 emtricitabi No Notes: Caesar lisa ne 200 MG / 4-10 (Same as: l tenofovir 14:00: Descovy) Herm ariel alafenamide 00 Non-formul 25 MG Oral nancy Tablet [Descovy] Sertraline No Notes: Memor ia 4-10 (Same as: l 14:00: Zoloft) [place] 00 pantoprazol No Notes: Caesar lisa e 4-10 Tablet l 14:00: should not [place] 00 be chewed or crushed. (Same as: [...] 0.9% 4-10 (Same as: l 02:00: BD [place] 00 Posiflush) Eliquis No Notes: Memoria 4-10 Same as: l 02:00: Eliquis Marty Hydralazine No Notes: Caesar lisa Hydrochlori 4-10 (Same as: l de 50 MG 02:00: Apresoline Her mitchell Oral Tablet 00 ) May interfere w/enteral feedings Take With Food Sucralfate No Notes: May M emoria 4-10 interfere l 02:00: w/enteral Bison 00 feeds - Take 1 hr before [...] 0.9% 4-10 (Same as: l 02:00: BD [place] 00 Posiflush) Eliquis No Notes: Memoria 4-10 [...] Memoria 4-10 Same as: l 02:00: Eliquis [place] 00 Hydralazine No Notes: Caesar lisa Hydrochlori [...] not exceed l #3 00:12: 4gm/day of [place] 00 acetaminop hen. (Same as: Tylenol with Codeine # 3) Buspirone No Notes: Memori a 08-29 (Same As: l 22:00: BuSpar) Lisinopril No 40 mg, 1 Mem oria 4-09 tab, l 22:00: Route: PO, Bison 00 Drug form: TAB, BID, Dosing Weight [...] oria 4-09 tab, l 22:00: Route: PO, [place] 00 Drug form: TAB, BID, Dosing Weight [...] oria 4-09 tab, l 22:00: Route: PO, Bison Drug form: TAB, BID, Dosing Weight 97.273, kg, Start date: 08/29/20 17:00:00 CDT, Duration: 30 day, Stop date: 09/28/20 9:00:00 CDT metoprolol 2020-0 No 100 mg, 1 Me moria tartrate 4-09 tab, l 22:00: Route: PO, [place] 00 Drug form: TAB, BID, Dosing Weight [...] tartrate 4-09 tab, l 22:00: Route: PO, [place] 00 Drug form: TAB, BID, Dosing Weight [...] Notes: Memoria 4-09 (Same l 17:07: as:MORPhin [place] 00 e Sulfate) Morphine No Notes: Memoria 4-09 (Same l 17:07: as:MORPhin Marty 00 e Sulfate) Morphine No Notes: Memoria 4-09 (Same l 17:07: as:MORPhin [place] 00 e Sulfate) Morphine No Notes: Memoria 4-09 (Same l 17:07: as:MORPhin Marty 00 e Sulfate) Morphine No Notes: Memoria 4-09 (Same l 17:07: as:MORPhin [place] 00 e Sulfate) Morphine No Notes: Memoria 4-09 (Same l 17:07: as:MORPhin [place] 00 e Sulfate) Morphine No Notes: Memoria 4-09 (Same l 17:07: as:MORPhin [place] 00 e Sulfate) buPROPion No 150 mg, 1 Mem oria 24 hour 4-09 tab, l extended 16:00: Route: PO, Her mitchell release 00 Drug form: ERTAB, Q24H, Dosing Weight 97.273, kg, Start date: 08/29/20 11:00:00 CDT, Duration: 30 day, Stop date: 09/27/20 11:00:00 CDT, 0 buPROPion 2021-0 No 150 mg, 1 Mem oria 24 hour 4-09 tab, l extended 16:00: Route: PO, Her micthell release 00 Drug form: ERTAB, Q24H, Dosing [...] tab, 0 coated Refill(s), tablet Pharmacy: [facility] 149, 162.56, cm, 08/29/20 5:30:00 CDT, Height, 97.273, kg, 08/29/20 5:30:00 CDT, Weight pantoprazol 2021-0 Yes 40 mg = 1 M emoria e 40 mg 4-09 tab, PO, l oral 15:27: Daily, # Bison enteric 00 30 tab, 0 coated Refill(s), tablet Pharmacy: [facility] 149, 162.56, cm, 08/29/20 5:30:00 CDT, Height, 97.273, kg, 08/29/20 5:30:00 CDT, Weight pantoprazol 2020-0 Yes 40 mg = 1 M emoria e 40 mg 4-09 tab, PO, l oral 15:27: Daily, # Marty enteric 00 30 tab, 0 coated Refill(s), tablet Pharmacy: [place] [address], 162.56, cm, 08/29/20 5:30:00 CDT, Height, 97.273, kg, 08/29/20 5:30:00 CDT, Weight pantoprazol 2020-0 Yes 40 mg = 1 M emoria e 40 mg 4-09 tab, PO, l oral 15:27: Daily, # [place]ison enteric 00 30 tab, 0 coated Refill(s), tablet Pharmacy: [place] [address], 162.56, cm, 08/29/20 5:30:00 CDT, Height, 97.273, kg, 08/29/20 5:30:00 CDT, Weight pantoprazol 2020-0 No 40 mg = 1 M emoria e 40 mg 4-09 tab, PO, l oral 15:26: Daily, # [place] enteric 00 30 tab, 0 coated Refill(s) tablet sucralfate 2020-0 Yes 1 gm = 1 Mem oria 1 g oral 4-09 tab, PO, l tablet 15:26: Q12H, # 28 Skylar nn 00 tab, 0 Refill(s), Pharmacy: [place] [address], 162.56, cm, 08/29/20 5:30:00 CDT, Height, 97.273, kg, 08/29/20 5:30:00 CDT, Weight pantoprazol 2020-0 No 40 mg = 1 M emoria e 40 mg 4-09 tab, PO, l oral 15:26: Daily, # [place] enteric 00 30 tab, 0 coated Refill(s) tablet sucralfate 2020-0 Yes 1 gm = 1 Mem oria 1 g oral 4-09 tab, PO, l tablet 15:26: Q12H, # 28 Skylar nn 00 tab, 0 Refill(s), Pharmacy: [facility] 149, 162.56, cm, 08/29/20 5:30:00 CDT, Height, 97.273, kg, 08/29/20 5:30:00 CDT, Weight pantoprazol 2020-0 No 40 mg = 1 M emoria e 40 mg 4-09 tab, PO, l oral 15:26: Daily, # [place] enteric 00 30 tab, 0 coated Refill(s) tablet sucralfate 2020-0 Yes 1 gm = 1 Mem oria 1 g oral 4-09 tab, PO, l tablet 15:26: Q12H, # 28 Skylar nn 00 tab, 0 Refill(s), Pharmacy: [facility] 149, 162.56, cm, 08/29/20 5:30:00 CDT, Height, 97.273, kg, 08/29/20 5:30:00 CDT, Weight pantoprazol 2020-0 No 40 mg = 1 M emoria e 40 mg 4-09 tab, PO, l oral 15:26: Daily, # [place] enteric 00 30 tab, 0 coated Refill(s) tablet sucralfate 2020-0 Yes 1 gm = 1 Mem oria 1 g oral 4-09 tab, PO, l tablet 15:26: Q12H, # 28 Skylar nn 00 tab, 0 Refill(s), Pharmacy: [facility] 149, 162.56, cm, 08/29/20 5:30:00 CDT, Height, 97.273, kg, 08/29/20 5:30:00 CDT, Weight pantoprazol 2020-0 No 40 mg = 1 M emoria e 40 mg 4-09 tab, PO, l oral 15:26: Daily, # [place] enteric 00 30 tab, 0 coated Refill(s) tablet sucralfate 2020-0 Yes 1 gm = 1 Mem oria 1 g oral 4-09 tab, PO, l tablet 15:26: Q12H, # 28 Skylar nn 00 tab, 0 Refill(s), Pharmacy: [facility] 149, 162.56, cm, 08/29/20 5:30:00 [...] nn 00 tab, 0 Refill(s), Pharmacy: [facility] 149, 162.56, cm, 08/29/20 5:30:00 CDT, Height, 97.273, kg, 08/29/20 5:30:00 CDT, Weight pantoprazol No 40 mg = 1 M emoria e 40 mg 4-09 tab, PO, l oral 15:26: Daily, # [place] enteric 00 30 tab, 0 coated Refill(s) tablet sucralfate Yes 1 gm = 1 Mem oria 1 g oral 4-09 tab, PO, l tablet 15:26: Q12H, # 28 Skylar nn 00 tab, 0 Refill(s), Pharmacy: [facility] 149, 162.56, cm, 08/29/20 5:30:00 CDT, Height, 97.273, kg, 08/29/20 5:30:00 CDT, Weight Saline No Notes: Memoria Flush 0.9% 4-09 (Same as: l 15:25: BD Marty 00 Posiflush) Lorazepam No Notes: Memori a 4-09 (Same as: l 15:25: Ativan) Saline No Notes: Memoria Flush 0.9% 4-09 (Same as: l 15:25: BD [place]ison 00 Posiflush) Lorazepam No Notes: Memori a 4-09 (Same as: l 15:25: Ativan) Bison Saline No Notes: Memoria Flush 0.9% 4-09 (Same as: l 15:25: BD [place] 00 Posiflush) Saline No Notes: Memoria Flush 0.9% 4-09 (Same as: l 15:25: BD [place] 00 Posiflush) Lorazepam No Notes: Memori a 4-09 (Same as: l 15:25: Ativan) Marty Lorazepam No Notes: Memori a 4-09 (Same as: l 15:25: Ativan) Marty 00 Saline No Notes: Memoria Flush 0.9% 4-09 (Same as: l 15:25: BD Marty Posiflush) Lorazepam No Notes: Memori a 4-09 (Same as: l 15:25: Ativan) Bison 00 Saline No Notes: Memoria Flush 0.9% 4-09 (Same as: l 15:25: BD Marty Posiflush) Lorazepam No Notes: Memori a 4-09 (Same as: l 15:25: Ativan) Saline No Notes: Memoria Flush 0.9% 4-09 (Same as: l 15:25: BD [place]ison Posiflush) Lorazepam No Notes: Memori a 4-09 [...] Memori a 08-29 Route: l 14:01: IVP, Bison 00 Q5Min, Dosing Weight 97.273, kg, PRN Elevated BP, Start date: 08/29/20 9:01:00 CDT, Duration: 5 doses or times, Stop date: Limited # of times Acetaminoph 0 No 1,000 mg, M emoria en 08-29 Route: PO, l 14:01: Drug form: Bison 00 TAB, ONCE, Dosing Weight 97.273, kg, [...] Memori a 08-29 Route: l 14:01: IVP, [place] 00 Q2MIN, Dosing Weight 97.273, kg, PRN [...] oria ne 08-29 Route: l 14:01: IVP, [place] 00 Q5Min, Dosing Weight 97.273, kg, PRN [...] ia 08-29 Route: l 14:01: IVP, ONCE, Bison 00 Dosing Weight 97.273, kg, PRN Nausea & Vomiting, Start date: 08/29/20 9:01:00 CDT Labetalol 2021-0 No 10 mg, Memori a 08-29 Route: l 14:01: IVP, [place] 00 Q5Min, Dosing Weight 97.273, kg, PRN [...] ia 08-29 Route: l 14:01: IVP, ONCE, Bison 00 Dosing Weight 97.273, kg, PRN Nausea & Vomiting, Start date: 08/29/20 9:01:00 CDT Labetalol 2021-0 No 10 mg, Memori a 08-29 Route: l 14:01: IVP, [place] 00 Q5Min, Dosing Weight 97.273, kg, PRN [...] 08-29 Route: PO, l 14:01: Drug form: Bison 00 TAB, ONCE, Dosing Weight 97.273, kg, [...] oria ne 08-29 Route: l 14:01: IVP, [place] 00 Q5Min, Dosing Weight 97.273, kg, PRN Pain Score 7-10, Start date: 08/29/20 9:01:00 CDT, Duration: 4 doses or times, Stop date: Limited # of times Flumazenil 2021-0 No 0.2 mg, Caesar lisa 08-29 Route: l 14:01: IVP, PRN, Bison 00 Dosing Weight 97.273, kg, PRN Benzodiaze [...] ia 08-29 Route: l 14:01: IVP, ONCE, Bison 00 Dosing Weight 97.273, kg, PRN Nausea & Vomiting, Start date: 08/29/20 9:01:00 CDT Labetalol 1-0 No 10 mg, Memori a 08-29 Route: l 14:01: IVP, [place] 00 Q5Min, Dosing Weight 97.273, kg, PRN [...] ia 08-29 Route: l 14:01: IVP, ONCE, Bison 00 Dosing Weight 97.273, kg, PRN Nausea [...] 08-29 Route: PO, l 14:01: Drug form: Bison 00 TAB, ONCE, Dosing Weight 97.273, kg, [...] Drug form: l 10 13:15: INJ, Start Bison microgram 00 date: 08/29/20 8:15:00 CDT, Stop [...] Drug form: l 10 13:15: INJ, Start Bison microgram date: 08/29/20 8:15:00 CDT, Stop date: 08/29/20 9:15:00 CDT norepinephr 2020-0 No Route: IV, Memoria ine (ANES) 08-29 Drug form: l 10 13:15: INJ, Start Marty microgram 00 date: 08/29/20 8:15:00 CDT, Stop date: 08/29/20 9:15:00 CDT norepinephr 2020-0 No Route: IV, Memoria ine (ANES) 08-29 Drug form: l 10 13:15: INJ, Start Bison microgram 00 date: 08/29/20 8:15:00 CDT, Stop date: 08/29/20 9:15:00 CDT norepinephr 2020-0 No Route: IV, Memoria ine (ANES) 08-29 Drug form: l 10 13:15: INJ, Start Bison microgram 00 date: 08/29/20 8:15:00 CDT, Stop date: 08/29/20 9:15:00 CDT Sodium 2021-0 No Route: IV, Memor ia Chloride 4-09 Total l 0.9% IV 12:30: Volume: Bison (ANES) 1000 00 1,000, mL Start date: 08/29/20 7:30:00 CDT, Stop date: 08/29/20 8:30:00 CDT Sodium 2021-0 No Route: IV, Memor ia Chloride 4-09 Total l 0.9% IV 12:30: Volume: Marty (ANES) 1000 00 1,000, mL Start date: 08/29/20 7:30:00 CDT, Stop date: 08/29/20 8:30:00 CDT Sodium 2021-0 No Route: IV, Memor ia Chloride 4-09 Total l 0.9% IV 12:30: Volume: Bison (ANES) 1000 00 1,000, mL Start date: [...] 4-09 Total l 0.9% IV 12:30: Volume: Bison (ANES) 1000 00 1,000, mL Start date: 08/29/20 7:30:00 CDT, Stop date: 08/29/20 8:30:00 CDT Sodium 2021-0 No Route: IV, Memor ia Chloride 4-09 Total l 0.9% IV 12:30: Volume: Bison (ANES) 1000 00 1,000, mL Start date: [...] PO, l Hydrochlori 11:42: Q24H, # 30 Bison de 150 MG 00 tab, 0 Extended Refill(s) Release Tablet 24 HR 0 Yes 150 mg = 1 Memori a Bupropion 4-09 tab, PO, l Hydrochlori 11:42: Q24H, # 30 Bison de 150 MG 00 tab, 0 Extended Refill(s) Release Tablet 24 HR 0 Yes 150 mg = 1 Memori a Bupropion 4-09 tab, PO, l Hydrochlori 11:42: Q24H, # 30 Bison de 150 MG 00 tab, 0 Extended Refill(s) Release Tablet 24 HR Yes 150 mg = 1 Memori a Bupropion 4-09 tab, PO, l Hydrochlori 11:42: Q24H, # 30 Bison de 150 MG 00 tab, 0 Extended Refill(s) Release Tablet 24 HR Yes 150 mg = 1 Memori a Bupropion 4-09 tab, PO, l Hydrochlori 11:42: Q24H, # 30 Bison de 150 MG 00 tab, 0 Extended [...] 4-09 Q12H, tab, l Tablet 11:41: 0 Bison [Eliquis] 00 Refill(s), For Atrial Fibrilatio n AMIODarone Yes 200 mg = 1 M emoria 200 mg oral 4-09 tab, PO, l tablet 11:38: Daily, # Marty 00 90 tab, 3 Refill(s) AMIODarone Yes 200 mg = 1 M emoria 200 mg oral 4-09 tab, PO, l tablet 11:38: Daily, # Bison 00 90 tab, 3 Refill(s) AMIODarone Yes [...] [place]covy [place] [facility] 1-21 200 mg-25 [facility] r AF 00:00: mg tablet (Descovy) [...] [facility] 00 (two) l [facility] Yes 400mg Q.5D Take [...] Hospita 00 (two) l times a day. [facility] 0 Yes 400mg Q.5D Take 400 Met hodi 400 mg 3-[address] tablet 00:00: mouth 2 Hospita 00 (two) l times a day. Immunizations Ordered Filled Immunization Date Status Comments [facility] e Immunization Name Name SARS-COV-2 COVID-19 [...] SARS-COV-2 COVID-19 2022-03-05 Completed Unive rsity of DIMITRSI-SUCROSE 00:00:[facility] [place] [facility] VACCINE 12 YRS+, [...] [place] 65+ PFIZER COVID-19 2020-07-23 Completed [facility] MRNA VACCINATION 00:00:00 [facility] PFIZER COVID-19 2020-07-23 Completed [facility] MRNA VACCINATION 00:00:00 [facility] PFIZER COVID-19 2020-07-23 Completed [facility] MRNA VACCINATION 00:00:00 [facility] PFIZER COVID-19 2020-07-23 Completed [facility] MRNA VACCINATION 00:00:00 [facility] PFIZER COVID-19 2020-07-23 Completed [facility] MRNA VACCINATION 00:00:00 [facility] PFIZER COVID-19 2020-07-23 Completed [facility] MRNA VACCINATION 00:00:00 [facility] PFIZER COVID-19 2020-07-23 Completed [facility] MRNA VACCINATION 00:00:00 [facility] PFIZER COVID-19 2020-07-23 Completed [facility] MRNA VACCINATION 00:00:00 [facility] PFIZER COVID-19 2020-07-23 Completed [facility] MRNA VACCINATION 00:00:00 [facility] PFIZER COVID-19 2020-07-23 Completed [facility] MRNA VACCINATION 00:00:00 [facility] PFIZER COVID-19 2020-07-23 Completed [facility] MRNA VACCINATION 00:00:00 [facility] PFIZER COVID-19 2020-07-23 Completed [facility] MRNA VACCINATION 00:00:00 [facility] PFIZER COVID-19 2020-07-23 Completed [facility] MRNA VACCINATION 00:00:00 [facility] PFIZER COVID-19 2020-07-23 Completed [facility] MRNA VACCINATION 00:00:00 [facility] PFIZER COVID-19 2020-07-23 Completed [facility] MRNA VACCINATION 00:00:00 [facility] PFIZER COVID-19 2020-07-23 Completed [facility] MRNA VACCINATION 00:00:00 [facility] PFIZER COVID-19 2020-07-23 Completed [facility] MRNA VACCINATION 00:00:00 [facility] PFIZER COVID-19 2020-07-23 Completed [facility] MRNA VACCINATION 00:00:00 [facility] PFIZER COVID-19 2020-07-23 Completed [facility] MRNA VACCINATION 00:00:00 [facility] PFIZER COVID-19 2020-07-23 Completed [facility] MRNA VACCINATION 00:00:00 [facility] PFIZER COVID-19 2020-07-23 Completed [facility] MRNA VACCINATION 00:00:00 [facility] PFIZER COVID-19 2020-07-23 Completed [facility] MRNA VACCINATION 00:00:00 [facility] PFIZER COVID-19 2020-07-23 Completed [facility] MRNA VACCINATION 00:00:00 [facility] PFIZER COVID-19 2020-07-23 Completed [facility] MRNA VACCINATION 00:00:00 [facility] PFIZER COVID-19 2020-07-23 Completed [facility] MRNA VACCINATION 00:00:00 [facility] PFIZER COVID-19 2020-07-23 Completed [facility] MRNA VACCINATION 00:00:00 [facility] PFIZER COVID-19 2020-07-23 Completed [facility] MRNA VACCINATION 00:00:00 [facility] PFIZER COVID-19 2020-07-23 Completed [facility] MRNA VACCINATION 00:00:00 [facility] PFIZER COVID-19 2020-07-23 Completed [facility] MRNA VACCINATION 00:00:00 [facility] PFIZER COVID-19 2020-07-23 Completed [facility] MRNA VACCINATION 00:00:00 [facility] PFIZER COVID-19 2020-07-23 Completed [facility] MRNA VACCINATION 00:00:00 [facility] PFIZER COVID-19 2020-07-23 Completed [facility] MRNA VACCINATION 00:00:00 [facility] PFIZER COVID-19 2020-07-23 Completed [facility] MRNA VACCINATION 00:00:00 [facility] PFIZER COVID-19 2020-07-23 Completed [facility] MRNA VACCINATION 00:00:00 [facility] PFIZER COVID-19 2020-07-23 Completed [facility] MRNA VACCINATION 00:00:00 [facility] PFIZER COVID-19 2020-07-23 Completed [facility] MRNA VACCINATION 00:00:00 [facility] PFIZER COVID-19 2020-07-23 Completed [facility] MRNA VACCINATION 00:00:00 [facility] PFIZER COVID-19 2020-07-23 Completed [facility] MRNA VACCINATION 00:00:00 Hospital PFIZER COVID-19 2020-07-23 Completed [facility] MRNA VACCINATION 00:00:00 Hospital PFIZER COVID-19 2020-07-23 Completed [facility] MRNA VACCINATION 00:00:00 [facility] SARS-COV-2 COVID-19 2020-07-23 Completed Unive rsity of PFIZER VACCINE 00:00:00 [facility] SARS-COV-2 COVID-19 2020-07-23 Completed Unive rsity of PFIZER VACCINE 00:00:00 [facility] SARS-COV-2 COVID-19 2020-07-23 Completed Unive rsity of PFIZER VACCINE 00:00:00 [facility] SARS-COV-2 COVID-19 2020-07-23 Completed Unive rsity of PFIZER VACCINE 00:00:00 [facility] SARS-COV-2 COVID-19 2020-07-23 Completed Unive rsity of PFIZER VACCINE 00:00:00 [facility] SARS-COV-2 COVID-19 2020-07-23 Completed Unive rsity of PFIZER VACCINE 00:00:00 [facility] SARS-COV-2 COVID-19 2020-07-23 Completed Unive rsity of PFIZER VACCINE 00:00:00 [facility] SARS-COV-2 COVID-19 2020-07-23 Completed Unive rsity of PFIZER VACCINE 00:00:00 [facility] SARS-COV-2 COVID-19 2020-07-23 Completed Unive rsity of PFIZER VACCINE 00:00:00 [facility] SARS-COV-2 COVID-19 2020-07-23 Completed Unive rsity of PFIZER VACCINE 00:00:00 [facility] SARS-COV-2 COVID-19 2020-07-23 Completed Unive rsity of PFIZER VACCINE 00:00:00 [facility] SARS-COV-2 COVID-19 2020-07-23 Completed Unive rsity of PFIZER VACCINE 00:00:00 [facility] SARS-COV-2 COVID-19 2020-07-23 Completed Unive rsity of PFIZER VACCINE 00:00:00 [facility] SARS-COV-2 COVID-19 2020-07-23 Completed Unive rsity of PFIZER VACCINE 00:00:00 [facility] PFIZER COVID-19 2020-07-23 Completed [facility] MRNA VACCINATION 00:00:00 Hospital PFIZER COVID-19 2020-07-02 Completed [facility] MRNA VACCINATION 00:00:00 Hospital PFIZER COVID-19 2020-07-02 Completed [facility] M[facility] VACCINATION 00:00:00 Hospital PFIZER COVID-19 2020-07-02 Completed [facility] M[facility] VACCINATION 00:00:00 Hospital PFIZER COVID-19 2020-07-02 Completed [facility] MRNA VACCINATION 00:00:00 Hospital PFIZER COVID-19 2020-07-02 Completed [facility] MRNA VACCINATION 00:00:00 Hospital PFIZER COVID-19 2020-07-02 Completed [facility] MRNA VACCINATION 00:00:00 [facility] PFIZER COVID-19 2020-07-02 Completed [facility] MRNA VACCINATION 00:00:00 [facility] PFIZER COVID-19 2020-07-02 Completed [facility] VACCINATION 00:00:00 [facility] COVID-19 2020-07-02 Completed [facility] VACCINATION 00:00:00 [facility] COVID-19 2020-07-02 Completed [facility] VACCINATION 00:00:00 [facility] COVID-19 2020-07-02 Completed [facility] VACCINATION 00:00:00 [facility] COVID-19 2020-07-02 Completed [facility] VACCINATION 00:00:00 [facility] COVID-19 2020-07-02 Completed [facility] VACCINATION 00:00:00 [facility] COVID-19 2020-07-02 Completed [facility] VACCINATION 00:00:00 [facility] COVID-19 2020-07-02 Completed [facility] VACCINATION 00:00:00 [facility] COVID-19 2020-07-02 Completed [facility] VACCINATION 00:00:00 [facility] COVID-19 2020-07-02 Completed [facility] VACCINATION 00:00:00 [facility] COVID-19 2020-07-02 Completed [facility] VACCINATION 00:00:00 [facility] COVID-19 2020-07-02 Completed [facility] VACCINATION 00:00:00 [facility] COVID-19 2020-07-02 Completed [facility] VACCINATION 00:00:00 [facility] COVID-19 2020-07-02 Completed [facility] VACCINATION 00:00:00 [facility] COVID-19 2020-07-02 Completed [facility] VACCINATION 00:00:00 [facility] COVID-19 2020-07-02 Completed [facility]ACC[facility] 00:00:00 [facility] COVID-19 2020-07-02 Completed [facility]ACC[facility] 00:00:00 [facility] COVID-19 2020-07-02 Completed [facility]ACC[facility] 00:00:00 [facility] COVID-19 2020-07-02 Completed [facility]ACC[facility] 00:00:00 [facility] COVID-19 2020-07-02 Completed [facility] VACCINATION 00:00:00 [facility] COVID-19 2020-07-02 Completed [facility] VACCINATION 00:00:00 [facility] COVID-19 2020-07-02 Completed [facility] VACCINATION 00:00:00 [facility] COVID-19 2020-07-02 Completed [facility] VACCINATION 00:00:00 [facility] COVID-19 2020-07-02 Completed [facility] VACCINATION 00:00:00 [facility] COVID-19 2020-07-02 Completed [facility] VACCINATION 00:00:00 [facility] COVID-19 2020-07-02 Completed [facility] VACCINATION 00:00:00 [facility] COVID-19 2020-07-02 Completed [facility] VACCINATION 00:00:00 [facility] COVID-19 2020-07-02 Completed [facility] VACCINATION 00:00:00 [facility] COVID-19 2020-07-02 Completed [facility] M[facility] VACCINATION 00:00:00 [facility] PFIZER COVID-19 2020-07-02 Completed [facility] M[facility] VACCINATION 00:00:00 [facility] PFIZER COVID-19 2020-07-02 Completed [facility] M[facility] VACCINATION 00:00:00 [facility] PFIZER COVID-19 2020-07-02 Completed [facility] M[facility] VACCINATION 00:00:00 [facility] PFIZER COVID-19 2020-07-02 Completed [facility] M[facility] VACCINATION 00:00:00 [facility] SARS-COV-2 COVID-19 2020-07-02 Completed [facility] PFIZER VACCINE 00:00:00 [facility] SARS-COV-2 COVID-19 2020-07-02 Completed [facility] of PFIZER VACCINE 00:00:00 [facility] SARS-COV-2 COVID-19 2020-07-02 Completed [facility] of PFIZER VACCINE 00:00:00 [facility] SARS-COV-2 COVID-19 2020-07-02 Completed [facility] of PFIZER VACCINE 00:00:00 [facility] SARS-COV-2 COVID-19 2020-07-02 Completed [facility] of PFIZER VACCINE 00:00:00 [facility] SARS-COV-2 COVID-19 2020-07-02 Completed [facility] of PFIZER VACCINE 00:00:00 [facility] SARS-COV-2 COVID-19 2020-07-02 Completed [facility] of PFIZER VACCINE 00:00:00 [facility] SARS-COV-2 COVID-19 2020-07-02 Completed [facility] of PFIZER VACCINE 00:00:00 [facility] SARS-COV-2 COVID-19 2020-07-02 Completed [facility] of PFIZER VACCINE 00:00:00 [facility] SARS-COV-2 COVID-19 2020-07-02 Completed [facility] of PFIZER VACCINE 00:00:00 [facility] SARS-COV-2 COVID-19 2020-07-02 Completed [facility] of PFIZER VACCINE 00:00:00 [facility] SARS-COV-2 COVID-19 2020-07-02 Completed [facility] of PFIZER VACCINE 00:00:00 [facility] SARS-COV-2 COVID-19 2020-07-02 Completed [facility] of PFIZER VACCINE 00:00:00 [facility] SARS-COV-2 COVID-19 2020-07-02 Completed [facility] of PFIZER VACCINE 00:00:00 [facility] PFIZER COVID-19 2020-07-02 Completed [facility] M[facility] VACCINATION 00:00:00 [facility] Influenza Virus 2017-03-08 Completed [facility] Vaccine 00:00:[address] [facility] Influenza Virus 2017-03-08 Completed [facility] of Vaccine 00:00:[address] [facility] Influenza Virus 2017-03-08 Completed [facility] of Vaccine 00:00:[address] [facility] Influenza Virus 2017-03-08 Completed [facility] of Vaccine 00:00:[address] [facility] Influenza Virus 2017-03-08 Completed [facility] of Vaccine 00:00:[address] [facility] Influenza Virus 2017-03-08 Completed [facility] of Vaccine 00:00:[address] [facility] Influenza Virus 2017-03-08 Completed [facility] of Vaccine 00:00:[address] [facility] Influenza Virus 2017-03-08 Completed [facility] of Vaccine 00:00:[address] [facility] Influenza Virus 2017-03-08 Completed [facility] of Vaccine 00:00:[address] [facility] Influenza Virus 2017-03-08 Completed [facility] of Vaccine 00:00:[address] [facility] Influenza Virus 2017-03-08 Completed [facility] of Vaccine 00:00:[address] [facility] Influenza Virus 2017-03-08 Completed [facility] of Vaccine 00:00:[address] [facility] Influenza Virus 2017-03-08 Completed [facility] of Vaccine 00:00:[address] [facility] Influenza Virus 2017-03-08 Completed [facility] of Vaccine 00:00:[address] [facility] Influenza Virus 2017-03-08 Completed [facility] of Vaccine 00:00:[address] [facility] Influenza Virus 2017-03-08 Completed [facility] of Vaccine 00:00:[address] [facility] Influenza Virus 2017-03-08 Completed [facility] of Vaccine 00:00:[address] [facility] Influenza Virus 2017-03-08 Completed [facility] of Vaccine 00:00:[address] [facility] Influenza Virus 2014-01-30 Completed [facility] of Vaccine (3+ yrs) 00:00:00 [facility] Pneumococcal 13 2014-01-30 Completed [facility] of Conjugate, PCV13 00:00:00 [facility] (Prevnar 13) [place] Influenza Virus 2014-01-30 Completed [facility]it y of Vaccine (3+ yrs) 00:00:00 [facility] Pneumococcal 13 2014-01-30 Completed [facility]it y of Conjugate, PCV13 00:00:00 [facility] dical (Prevnar 13) Branch Influenza Virus 2014-01-30 Completed [facility]it y of Vaccine (3+ yrs) 00:00:00 [facility] Pneumococcal 13 2014-01-30 Completed [facility]it y of Conjugate, PCV13 00:00:00 [facility] dical (Prevnar 13) Branch Influenza Virus 2014-01-30 Completed [facility]it y of Vaccine (3+ yrs) 00:00:00 [facility] Pneumococcal 13 2014-01-30 Completed [facility]it y of Conjugate, PCV13 00:00:00 [facility] (Prevnar 13) Branch Influenza Virus 2014-01-30 [...] y of Vaccine (3+ yrs) 00:00:00 [facility] Pneumococcal 13 2014-01-30 Completed [facility] of Conjugate, PCV13 00:00:00 [facility] (Prevnar 13) [facility] Influenza Virus 2014-01-30 Completed [facility] of Vaccine (3+ yrs) 00:00:00 [facility] Pneumococcal 13 2014-01-30 Completed [facility] Conjugate, PCV13 00:00:00 [facility] (Prevnar 13) [facility] Influenza Virus 2014-01-30 Completed [facility] of Vaccine (3+ yrs) 00:00:00 [facility] Pneumococcal 13 2014-01-30 Completed [facility] of Conjugate, PCV13 00:00:00 [facility] (Prevnar 13) [facility] Influenza Virus 2014-01-30 Completed [facility] of Vaccine (3+ yrs) 00:00:00 [facility] Pneumococcal 13 2014-01-30 Completed [facility] of Conjugate, PCV13 00:00:00 [facility] (Prevnar 13) [facility] Influenza Virus 2014-01-30 Completed [facility] of Vaccine (3+ yrs) 00:00:00 [facility] Pneumococcal 13 2014-01-30 Completed [facility] of Conjugate, PCV13 00:00:00 [facility] (Prevnar 13) [facility] Influenza Virus 2014-01-30 Completed [facility] of Vaccine (3+ yrs) 00:00:00 [facility] Pneumococcal 13 2014-01-30 Completed Universit [...] Completed [facility], [facility] PPS[facility] (PNEUMOVAX) Branch Influenza Virus 2012-02-16 Completed [facility] of Vaccine 00:00:[address] [facility] PPD (TB) 2012-02-16 Completed [facility] of 00:00:[address] [facility] Pneumococcal 2012-02-16 Completed [facility] Polysaccharide, 00:[facility]00 [facility] PPSV23 (PNEUMOVAX) Branch Influenza Virus 2012-02-16 Completed [facility] of Vaccine 00:00:[address] [facility] PPD (TB) 2012-02-16 Completed [facility] of 00:00:[address] [facility] Pneumococcal 2012-02-16 Completed [facility] Polysaccharide, 00:[facility] PPSV23 (PNEUMOVAX) Branch Influenza Virus 2012-02-16 Completed [facility] of Vaccine 00:00:[address] [facility] PPD (TB) 2012-02-16 Completed [facility] of 00:00:[address] [facility] Pneumococcal 2012-02-16 Completed [facility] o f Polysaccharide, 00:00:00 [place] [facility] PPSV23 (PNEUMOVAX) Branch Influenza Virus 2012-02-16 Completed [facility] of Vaccine 00:00:[address] [facility] PPD (TB) 2012-02-16 Completed [facility] of 00:00:[address] [facility] Pneumococcal 2012-02-16 Completed [facility] o f Polysaccharide, 00:00:00 [place] [facility] PPSV23 (PNEUMOVAX) Branch Influenza Virus 2012-02-16 Completed [facility] of Vaccine 00:00:[address] [facility] PPD (TB) 2012-02-16 Completed [facility] of 00:00:[address] [facility] Pneumococcal 2012-02-16 Completed [facility] o f Polysaccharide, 00:00:00 [place] [facility] PPSV23 (PNEUMOVAX) Branch Influenza Virus 2012-02-16 Completed [facility] of Vaccine 00:00:[address] [facility] PPD (TB) 2012-02-16 Completed [facility] of 00:00:[address] [facility] Pneumococcal 2012-02-16 Completed [facility] o f Polysaccharide, 00:00:00 [place] [facility] PPSV23 (PNEUMOVAX) Branch Influenza Virus 2012-02-16 Completed [facility] of Vaccine 00:00:[address] [facility] PPD (TB) 2012-02-16 Completed [facility] of 00:00:[address] [facility] Pneumococcal 2012-02-16 Completed [facility] o f Polysaccharide, 00:00:00 [place] [facility] PPSV23 (PNEUMOVAX) Branch Influenza Virus 2012-02-16 Completed [facility] of Vaccine 00:00:[address] [facility] PPD (TB) 2012-02-16 Completed [facility] of 00:00:[address] [facility] Pneumococcal 2012-02-16 Completed [facility] o f Polysaccharide, 00:00:00 [place] [facility] PPSV23 (PNEUMOVAX) Branch Influenza Virus 2012-02-16 Completed [facility] of Vaccine 00:00:[address] [facility] PPD (TB) 2012-02-16 Completed [facility] of 00:00:[address] [facility] Pneumococcal 2012-02-16 Completed [facility] o f Polysaccharide, 00:00:00 [place] [facility] PPSV23 (PNEUMOVAX) Branch Influenza Virus 2012-02-16 Completed [facility] of Vaccine 00:00:[address] [facility] PPD (TB) 2012-02-16 Completed [facility] of 00:00:[address] [facility] Pneumococcal 2012-02-16 Completed [facility] o f Polysaccharide, 00:00:00 [place] [facility] PPSV23 (PNEUMOVAX) Branch Influenza Virus 2012-02-16 Completed [facility] of Vaccine 00:00:[address] [facility] PPD (TB) 2012-02-16 Completed [facility] of 00:00:[address] [facility] Pneumococcal 2012-02-16 Completed [facility] o f Polysaccharide, 00:00:00 [place] [facility] PPSV23 (PNEUMOVAX) Branch Influenza Virus 2012-02-16 Completed [facility] of Vaccine 00:00:[address] [facility] PPD (TB) 2012-02-16 Completed [facility] of 00:00:[address] [facility] Pneumococcal 2012-02-16 Completed [facility] o f Polysaccharide, 00:00:00 [place] [facility] PPSV23 (PNEUMOVAX) Branch Influenza Virus 2012-02-16 Completed [facility] of Vaccine 00:00:[address] [facility] PPD (TB) 2012-02-16 Completed [facility] of 00:00:[address] [facility] Pneumococcal 2012-02-16 Completed [facility] o f Polysaccharide, 00:00:00 [place] [facility] PPSV23 (PNEUMOVAX) Branch Influenza Virus 2012-02-16 Completed [facility] of Vaccine 00:00:[address] [facility] PPD (TB) 2012-02-16 Completed [facility] of 00:00:[address] [facility] Pneumococcal 2012-02-16 Completed [facility] o f Polysaccharide, 00:00:00 [place] [facility] PPSV23 (PNEUMOVAX) Branch Influenza Virus 2012-02-16 Completed [facility] of Vaccine 00:00:[address] [facility] PPD (TB) 2012-02-16 Completed [facility] of 00:00:[address] [facility] Pneumococcal 2012-02-16 Completed [facility] o f Polysaccharide, 00:00:00 [place] [facility] PPSV23 (PNEUMOVAX) Branch Influenza Virus 2012-02-16 Completed [facility] of Vaccine 00:00:[address] [facility] PPD (TB) 2012-02-16 Completed [facility] of 00:00:[address] [facility] Pneumococcal 2012-02-16 Completed [facility] o f Polysaccharide, 00:00:00 [place] [facility] PPSV23 (PNEUMOVAX) Branch Influenza Virus 2012-02-16 Completed [facility] of Vaccine 00:00:[address] [facility] PPD (TB) 2012-02-16 Completed [facility] of 00:00:[address] [facility] Pneumococcal 2012-02-16 Completed University o f Polysaccharide, 00:00:00 [facility] PPSV23 (PNEUMOVAX) [place] Influenza Virus 2012-02-16 Completed [facility]it [facility] of Vaccine 00:00:[address] [facility] PPD (TB) 2012-02-16 Completed University of 00:00:[address] [facility] Hep B, Adol or Pedi 2011-09-01 Completed Unive rsity of Dosage 00:00:[address] [facility] Hep B, Adol or Pedi 2011-09-01 Completed [facility]ive rsity of Dosage 00:00:[address] [facility] Hep B, Adol or Pedi 2011-09-01 Completed [facility]ive rsity of Dosage 00:00:[address] [facility] Hep B, Adol or Pedi 2011-09-01 Completed Unive rsity of Dosage 00:00:[address] [facility] Hep B, Adol or Pedi 2011-09-01 Completed Unive rsity of Dosage 00:00:[address] [facility] Hep B, Adol or Pedi 2011-09-01 Completed [facility]ive rsity of Dosage 00:00:[address] [facility] Hep B, Adol or Pedi 2011-09-01 Completed [facility]ive rs[facility] of Dosage 00:00:[address] [facility] Hep B, Adol or Pedi 2011-09-01 Completed [facility]ive rs[facility] of Dosage 00:00:[address] [facility] Hep B, Adol or Pedi 2011-09-01 Completed Unive rs[facility] of Dosage 00:00:00 [facility] Hep B, Adol or Pedi 2011-09-01 Completed Unive rsity of Dosage 00:00:[address] [facility] Hep B, Adol or Pedi 2011-09-01 Completed [facility]ive rs[facility] of Dosage 00:00:[address] [facility] Hep B, Adol or Pedi 2011-09-01 Completed [facility]ive rs[facility] of Dosage 00:00:[address] [facility] Hep B, Adol or Pedi 2011-09-01 Completed [facility]ive rs[facility] of Dosage 00:00:[address] [facility] Hep B, Adol or Pedi 2011-09-01 Completed [facility]ive rsity of Dosage 00:00:[address] [facility] Hep B, Adol or Pedi 2011-09-01 [...] 2011-03-17 Completed [facility]ive [facility] of Dosage 00:00:00 [facility] Hep B, Adol or Pedi 2011-03-17 Completed [facility]ive rs[facility] of Dosage 00:00:00 [facility] Hep B, Adol or Pedi 2011-03-17 Completed [facility]ive rs[facility] of Dosage 00:00:[address] [facility] Hep B, Adol or Pedi 2011-03-17 Completed [facility]ive rs[facility] of Dosage 00:00:[address] [facility] Influenza Virus 2011-02-10 Completed [facility] of Vaccine 00:00:[address] [facility] Hep B, Adol or Pedi 2011-02-10 Completed [facility]ive rs[facility] of Dosage 00:00:[address] [facility] Influenza Virus 2011-02-10 Completed [facility] of Vaccine 00:00:[address] [facility] Hep B, Adol or Pedi 2011-02-10 Completed [facility]ive rs[facility] of Dosage 00:00:[address] [facility] Influenza Virus 2011-02-10 Completed [facility] of Vaccine 00:00:[address] [facility] Hep B, Adol or Pedi 2011-02-10 Completed [facility]ive rsity of Dosage 00:00:[address] [facility] Influenza Virus 2011-02-10 Completed [facility] of Vaccine 00:00:[address] [facility] Hep B, Adol or Pedi 2011-02-10 Completed [facility]ive rs[facility] of Dosage 00:00:[address] [facility] Influenza Virus 2011-02-10 Completed [facility] of Vaccine 00:00:[address] [facility] Hep B, Adol or Pedi 2011-02-10 Completed [facility]ive rs[facility] of Dosage 00:00:[address] [facility] Influenza Virus 2011-02-10 Completed [facility] of Vaccine 00:00:00 [facility] Hep B, Adol or Pedi 2011-02-10 Completed [facility]ive rsity of Dosage 00:00:[address] [facility] Influenza Virus 2011-02-10 Completed [facility] of Vaccine 00:00:00 [facility] Hep B, Adol or Pedi 2011-02-10 Completed [facility]ive rsity of Dosage 00:00:[address] [facility] Influenza Virus 2011-02-10 Completed [facility] of Vaccine 00:00:00 [facility] Hep B, Adol or Pedi 2011-02-10 Completed [facility]ive rsity of Dosage 00:00:[address] [facility] Influenza Virus 2011-02-10 Completed [facility] of Vaccine 00:00:[address] [facility] Hep B, Adol or Pedi 2011-02-10 Completed [facility]ive rs[facility] of Dosage 00:00:[address] [facility] Influenza Virus 2011-02-10 Completed [facility] of Vaccine 00:00:[address] [facility] Hep B, Adol or Pedi 2011-02-10 Completed [facility]ive rs[facility] of Dosage 00:00:[address] [facility] Influenza Virus 2011-02-10 Completed [facility] of Vaccine 00:00:[address] [facility] Hep B, Adol or Pedi 2011-02-10 Completed [facility]ive rs[facility] of Dosage 00:00:[address] [facility] Influenza Virus 2011-02-10 Completed [facility] of Vaccine 00:00:[address] [facility] Hep B, Adol or Pedi 2011-02-10 Completed [facility] rs[facility] of Dosage 00:00:[address] [facility] Influenza Virus 2011-02-10 Completed [facility] of Vaccine 00:00:[address] [facility] Hep B, Adol or Pedi 2011-02-10 Completed [facility]ive rs[facility] of Dosage 00:00:[address] [facility] Influenza Virus 2011-02-10 Completed [facility] of Vaccine 00:00:[address] [facility] Hep B, Adol or Pedi 2011-02-10 Completed [facility]ive rs[facility] of Dosage 00:00:[address] [facility] Influenza Virus 2011-02-10 Completed [facility] of Vaccine 00:00:[address] [facility] Hep B, Adol or Pedi 2011-02-10 Completed [facility]ive rs[facility] of Dosage 00:00:[address] [facility] Influenza Virus 2011-02-10 Completed [facility] of Vaccine 00:00:[address] [facility] Hep B, Adol or Pedi 2011-02-10 Completed [facility]ive rs[facility] of Dosage 00:00:[address] [facility] Influenza Virus 2011-02-10 Completed [facility] of Vaccine 00:00:[address] [facility] Hep B, Adol or Pedi 2011-02-10 Completed [facility] rs[facility] of Dosage 00:00:[address] [facility] Influenza Virus 2011-02-10 Completed [facility] of Vaccine 00:00:[address] [facility] Hep B, Adol or Pedi 2011-02-10 Completed [facility]ive rs[facility] of Dosage 00:00:[address] [facility] PPD (TB) 2010-11-18 Completed [facility] of 00:00:00 [facility] TDAP (ADACEL) 2010-11-18 Completed University of VACCINE 00:00:[address] [facility] PPD (TB) 2010-11-18 Completed [facility] of 00:00:00 [facility] TDAP (ADACEL) 2010-11-18 Completed University of VACCINE 00:00:[address] [facility] PPD (TB) 2010-11-18 Completed [facility] of 00:00:00 [facility] TDAP (ADACEL) 2010-11-18 Completed University of VACCINE 00:00:[address] [facility] PPD (TB) 2010-11-18 Completed [facility] of 00:00:00 [facility] TDAP (ADACEL) 2010-11-18 Completed University of VACCINE 00:00:[address] [facility] PPD (TB) 2010-11-18 Completed [facility] of 00:00:[address] [facility] TDAP (ADACEL) 2010-11-18 Completed University of VACCINE 00:00:[address] [facility] PPD (TB) 2010-11-18 Completed [facility] of 00:00:[address] [facility] TDAP (ADACEL) 2010-11-18 Completed University of VACCINE 00:00:[address] [facility] PPD (TB) 2010-11-18 Completed [facility] of 00:00:[address] [facility] TDAP (ADACEL) 2010-11-18 Completed University of VACCINE 00:00:[address] [facility] PPD (TB) 2010-11-18 Completed [facility] of 00:00:[address] [facility] TDAP (ADACEL) 2010-11-18 Completed University of VACCINE 00:00:[address] [facility] PPD (TB) 2010-11-18 Completed [facility] of 00:00:00 [facility] TDAP (ADACEL) 2010-11-18 Completed University of VACCINE 00:00:[address] [facility] PPD (TB) 2010-11-18 Completed [facility] of 00:00:00 [facility] TDAP (ADACEL) 2010-11-18 Completed University of VACCINE 00:00:[address] [facility] PPD (TB) 2010-11-18 Completed [facility] of 00:00:00 [facility] TDAP (ADACEL) 2010-11-18 Completed [facility] of VACCINE 00:00:[address] [facility] PPD (TB) 2010-11-18 Completed [facility] of 00:00:00 [facility] TDAP (ADACEL) 2010-11-18 Completed [facility] of VACCINE 00:00:[address] [facility] PPD (TB) 2010-11-18 Completed [facility] of 00:00:[address] [facility] TDAP (ADACEL) 2010-11-18 Completed [facility] of VACCINE 00:00:[address] [facility] PPD (TB) 2010-11-18 Completed [facility] of 00:00:00 [facility] TDAP (ADACEL) 2010-11-18 Completed [facility] of VACCINE 00:00:[address] [facility] PPD (TB) 2010-11-18 Completed [facility] of 00:00:00 [facility] TDAP (ADACEL) 2010-11-18 Completed University of VACCINE 00:00:[address] [facility] PPD (TB) 2010-11-18 Completed [facility] of 00:00:[address] [facility] TDAP (ADACEL) 2010-11-18 Completed [facility] of VACCINE 00:00:[address] [facility] PPD (TB) 2010-11-18 Completed [facility] of 00:00:[address] [facility] TDAP (ADACEL) 2010-11-18 Completed [facility] of VACCINE 00:00:[address] [facility] PPD (TB) 2010-11-18 Completed [facility] of 00:00:[address] [facility] TDAP (ADACEL) 2010-11-18 Completed [facility] of VACCINE 00:00:[address] [facility] HEPATITIS A 2004-03-02 Completed [facility] of 00:00:[address] [facility] HEPATITIS A 2004-03-02 Completed [facility] of 00:00:[address] [facility] HEPATITIS A 2004-03-02 Completed [facility] of 00:00:[address] [facility] HEPATITIS A 2004-03-02 Completed [facility] of 00:00:[address] [facility] HEPATITIS A 2004-03-02 Completed [facility] of 00:00:00 [facility] HEPATITIS A 2004-03-02 Completed [facility] of 00:00:00 [facility] HEPATITIS A 2004-03-02 Completed [facility] of 00:00:[address] [facility] HEPATITIS A 2004-03-02 Completed [facility] of 00:00:[address] [facility] HEPATITIS A 2004-03-02 Completed [facility] of 00:00:00 [facility] HEPATITIS A 2004-03-02 Completed [facility] of 00:00:00 [facility] HEPATITIS A 2004-03-02 Completed [facility] of 00:00:[address] [facility] HEPATITIS A 2004-03-02 Completed [facility] of 00:00:[address] [facility] HEPATITIS A 2004-03-02 Completed [facility] of 00:00:[address] [facility] HEPATITIS A 2004-03-02 Completed [facility] of 00:00:[address] [facility] HEPATITIS A 2004-03-02 Completed [facility] of 00:00:[address] [facility] HEPATITIS A 2004-03-02 Completed [facility] of 00:00:[address] [facility] HEPATITIS A 2004-03-02 Completed [facility] of 00:00:[address] [facility] HEPATITIS A 2004-03-02 Completed [facility] of 00:00:[address] [facility] HEPATITIS A 2003-08-01 Completed [facility] of 00:00:[address] [facility] HEPATITIS A 2003-08-01 Completed [facility] of 00:00:00 [facility] HEPATITIS A 2003-08-01 Completed [facility] of 00:00:[address] [facility] HEPATITIS A 2003-08-01 Completed University of 00:00:[address] [facility] HEPATITIS A 2003-08-01 Completed University of 00:00:[address] [facility] HEPATITIS A 2003-08-01 Completed University of 00:00:[address] [facility] HEPATITIS A 2003-08-01 Completed University of 00:00:[address] [facility] HEPATITIS A 2003-08-01 Completed University of 00:00:[address] [facility] HEPATITIS A 2003-08-01 Completed University of 00:00:[address] [facility] HEPATITIS A 2003-08-01 Completed University of 00:00:[address] [facility] HEPATITIS A 2003-08-01 Completed University of 00:00:[address] [facility] HEPATITIS A 2003-08-01 Completed University of 00:00:[address] [facility] HEPATITIS A 2003-08-01 Completed University of 00:00:[address] [facility] HEPATITIS A 2003-08-01 Completed University of 00:00:[address] [facility] HEPATITIS A 2003-08-01 Completed University of 00:00:00 [facility] HEPATITIS A 2003-08-01 Completed University of 00:00:[address] [facility] HEPATITIS A 2003-08-01 Completed University of 00:00:[address] [facility] HEPATITIS A 2003-08-01 Completed University of 00:00:[address] [facility] Pneumococcal 2001-10-04 Completed University o f Polysaccharide, 00:00:00 [place] [facility] PPSV23 (PNEUMOVAX) Branch PPD (TB) 2001-10-04 Completed University of 00:00:[address] [facility] Pneumococcal 2001-10-04 Completed University o f Polysaccharide, 00:00:00 [place] [facility] PPSV23 (PNEUMOVAX) Branch PPD (TB) 2001-10-04 Completed University of 00:00:[address] [facility] Pneumococcal 2001-10-04 Completed University o f Polysaccharide, 00:00:00 [place] [facility] PPSV23 (PNEUMOVAX) Branch PPD (TB) 2001-10-04 Completed University of 00:00:[address] [facility] Pneumococcal 2001-10-04 Completed University o f Polysaccharide, 00:00:00 [place] [facility] PPSV23 (PNEUMOVAX) Branch PPD (TB) 2001-10-04 Completed University of 00:00:[address] [facility] Pneumococcal 2001-10-04 Completed University o f Polysaccharide, 00:00:00 [place] [facility] PPSV23 (PNEUMOVAX) Branch PPD (TB) 2001-10-04 Completed [facility] of 00:00:[address] [facility] Pneumococcal 2001-10-04 Completed University o f Polysaccharide, 00:00:00 [place] [facility] PPSV23 (PNEUMOVAX) Branch PPD (TB) 2001-10-04 Completed [facility] of 00:00:[address] [facility] Pneumococcal 2001-10-04 Completed University o f Polysaccharide, 00:00:00 [place] [facility] PPSV23 (PNEUMOVAX) Branch PPD (TB) 2001-10-04 Completed [facility] of 00:00:[address] [facility] Pneumococcal 2001-10-04 Completed University o f Polysaccharide, 00:00:00 [place] [facility] PPSV23 (PNEUMOVAX) Branch PPD (TB) 2001-10-04 Completed [facility] of 00:00:[address] [facility] Pneumococcal 2001-10-04 Completed University o f Polysaccharide, 00:00:00 [place] [facility] PPSV23 (PNEUMOVAX) Branch PPD (TB) 2001-10-04 Completed [facility] of 00:00:[address] [facility] Pneumococcal 2001-10-04 Completed University o f Polysaccharide, 00:00:00 [place] [facility] PPSV23 (PNEUMOVAX) Branch PPD (TB) 2001-10-04 Completed [facility] of 00:00:[address] [facility] Pneumococcal 2001-10-04 Completed University o f Polysaccharide, 00:00:00 [place] [facility] PPSV23 (PNEUMOVAX) Branch PPD (TB) 2001-10-04 Completed [facility] of 00:00:[address] [facility] Pneumococcal 2001-10-04 Completed University o f Polysaccharide, 00:00:00 [place] [facility] PPSV23 (PNEUMOVAX) Branch PPD (TB) 2001-10-04 Completed [facility] of 00:00:[address] [facility] Pneumococcal 2001-10-04 Completed University o f Polysaccharide, 00:00:00 [place] [facility] PPSV23 (PNEUMOVAX) Branch PPD (TB) 2001-10-04 Completed [facility] of 00:00:[address] [facility] Pneumococcal 2001-10-04 Completed University o f Polysaccharide, 00:00:00 [place] [facility] PPSV23 (PNEUMOVAX) Branch PPD (TB) 2001-10-04 Completed [facility] of 00:00:[address] [facility] Pneumococcal 2001-10-04 Completed University o f Polysaccharide, 00:00:00 [place] [facility] PPSV23 (PNEUMOVAX) Branch PPD (TB) 2001-10-04 Completed [facility] of 00:00:[address] [facility] Pneumococcal 2001-10-04 Completed University o f Polysaccharide, 00:00:00 [place] [facility] PPSV23 (PNEUMOVAX) Branch PPD (TB) 2001-10-04 Completed [facility] of 00:00:[address] [facility] Pneumococcal 2001-10-04 Completed University o f Polysaccharide, 00:00:00 [place] [facility] PPSV23 (PNEUMOVAX) Branch PPD (TB) 2001-10-04 Completed [facility] of 00:00:[address] [facility] Pneumococcal 2001-10-04 Completed University o f Polysaccharide, 00:00:00 [place] [facility] PPSV23 (PNEUMOVAX) Branch PPD (TB) 2001-10-04 Completed University of 00:00:[address] [facility] Vital Signs Vital Name Observation Time Observation Value Comments Source Systolic blood 2022-05-10 22:00:00 159 mm[Hg] Univer sity of pressure [facility] Diastolic blood 2022-05-10 22:00:00 87 mm[Hg] Unive rsity of pressure [facility] Heart rate 2022-05-10 22:00:00 56 /min [facility] Body temperature 2022-05-10 22:00:00 36.61 Amina [facility] 2022-05-10 22:00:00 17 /min Univ [facility] Oxygen saturation in 2022-05-10 22:00:00 98 /min [facility] Arterial blood by [facility] Pulse oximetry Branch Body weight 2022-05-10 16:29:00 78.926 kg [facility] BMI 2022-05-10 16:29:00 29.87 kg/m2 [facility] [place] [facility] Systolic blood 2022-05-08 22:30:00 168 mm[Hg] Univer sity of pressure [facility] Diastolic blood 2022-05-08 22:30:00 85 mm[Hg] Unive rsity of pressure [facility] Heart rate 2022-05-08 22:30:00 68 /min [facility] [place] [facility] Oxygen saturation in 2022-05-08 22:30:00 100 /min University of Arterial blood by [place] [facility] Pulse oximetry Branch Body temperature 2022-05-08 22:22:00 35.89 Amina Univ ersity of [place] [facility] Respiratory rate 2022-05-08 22:22:00 14 /min Univ ers[facility] [place] [facility] Body weight 2022-05-08 22:22:00 78.926 kg [facility] [place] [facility] BMI 2022-05-08 22:22:00 29.87 kg/m2 [facility] [place] [facility] Systolic blood 2022-05-07 00:00:00 149 mm[Hg] Univer sity of pressure [facility] Diastolic blood 2022-05-07 00:00:00 132 mm[Hg] Unive rsity of pressure [facility] Heart rate 2022-05-07 00:00:00 59 /min [facility] [place] [facility] Respiratory rate 2022-05-07 00:00:00 14 /min Univ ersity [facility] [place] [facility] Oxygen saturation in 2022-05-07 00:00:00 99 /min University of Arterial blood by [place] [facility] Pulse oximetry Branch Body temperature 2022-05-06 20:12:00 36.5 Amina Univ ersity [facility] [place] [facility] Body height 2022-05-06 20:12:00 162.6 cm [facility] [place] [facility] Body weight 2022-05-06 20:12:00 78.926 kg [facility] [place] [facility] BMI 2022-05-06 20:12:00 29.87 kg/m2 [facility] [place] [facility] Systolic blood 2022-04-22 19:50:00 156 mm[Hg] Univer sity of pressure [facility] Diastolic blood 2022-04-22 19:50:00 89 mm[Hg] Unive rsity of pressure [facility] Heart rate 2022-04-22 19:50:00 69 /min [facility] [place] [facility] Body temperature 2022-04-22 19:50:00 36.67 Amina Univ ers[facility] [place] [facility] Respiratory rate 2022-04-22 19:50:00 17 /min Univ ers[facility] [place] [facility] Body height 2022-04-22 19:50:00 162.6 cm [facility] [place] [facility] Body weight 2022-04-22 19:50:00 80.74 kg [facility] [place] [facility] BMI 2022-04-22 19:50:00 30.55 kg/m2 [facility] [place] [facility] Oxygen saturation in 2022-04-22 19:50:00 96 /min University of Arterial blood by [facility] Pulse oximetry Branch Systolic blood 2022-03-05 15:23:00 [...] 21:41:00 86 mm[Hg] Unive rsity of pressure [facility] Heart rate 2022-02-16 21:41:00 51 /min [facility] [place] [facility] Body temperature 2022-02-16 21:41:00 36.56 Amina Univ ers[facility] [place] [facility] Respiratory rate 2022-02-16 21:41:00 17 /min Univ ers[facility] [place] [facility] Oxygen saturation in 2022-02-16 21:41:00 98 /min [facility] Arterial blood by [facility] Pulse oximetry Branch Body height 2022-02-11 16:02:00 162.6 cm Universi ty of [facility] Body weight 2022-02-11 16:02:00 79.379 kg Universi ty [facility] BMI 2022-02-11 16:02:00 30.04 kg/m2 Universi ty [facility] Systolic blood 2021-11-20 13:47:00 165 mm[Hg] Univer sity of [facility] Diastolic blood 2021-11-20 13:47:00 83 mm[Hg] Unive rsity of [facility] Heart rate 2021-11-20 13:47:00 58 /min [facility] Body temperature 2021-11-20 13:42:00 36.39 Amina [facility] Respiratory rate 2021-11-20 13:42:00 16 /min [facility] Body height 2021-11-20 13:42:00 162.6 cm Universi ty [facility] Body weight 2021-11-20 13:42:00 84.369 kg Universi ty [facility] BMI 2021-11-20 13:42:00 31.93 kg/m2 [facility] Systolic blood 2021-07-14 15:18:00 142 mm[Hg] [...] 2022-03-05 15:23:00 167 mm[Hg] Univer sity of [facility] Diastolic blood 2022-03-05 15:23:00 105 mm[Hg] Unive rsity of [facility] Heart rate 2022-03-05 15:23:00 49 /min [facility] Body temperature 2022-03-05 15:18:00 36.67 Amina [facility] Respiratory rate 2022-03-05 15:18:00 18 /min [facility] Body height 2022-03-05 15:18:00 162.6 cm [facility] Body weight 2022-03-05 15:18:00 74.707 kg [facility] BMI 2022-03-05 15:18:00 28.27 kg/m2 [facility] Oxygen saturation in 2022-02-16 21:41:00 98 /min [facility] Arterial blood by [facility] Pulse oximetry Branch Systolic blood 2020-12-08 15:48:00 125 mm[Hg] Method [facility] pressure Diastolic blood 2020-12-08 15:48:00 76 mm[Hg] [facility] pressure Heart rate 2020-12-08 15:48:00 64 /min [facility] Body temperature 2020-12-08 15:48:00 36.61 Amina [facility] Respiratory rate 2020-12-08 15:48:00 17 /min [facility] Body height 2020-12-08 15:48:00 162.6 cm [facility] Body weight 2020-12-08 15:48:00 98.884 kg [facility] BMI 2020-12-08 15:48:00 37.42 kg/m2 [facility] Oxygen saturation in 2020-12-08 15:48:00 97 /min [facility] Arterial blood by Pulse oximetry Respitory Rate 2020-08-30 13:00:00 Memori al Bison Systolic (mm Hg) 2020-08-30 13:00:00 Caesar rial [facility] Diastolic (mm Hg) 2020-08-30 13:00:00 Mem orial [facility] Systolic (mm Hg) 2020-08-30 11:00:00 Caesar rial Marty Diastolic (mm Hg) 2020-08-30 11:00:00 Mem orial [facility] Temperature Oral (F) 2020-08-30 11:00:00 98.4 F [facility] Respitory Rate 2020-08-30 11:00:00 Memori al Marty Respitory Rate 2020-08-30 10:00:00 Dari[place] andre Marty Systolic (mm Hg) 2020-08-30 10:00:00 Caesar cheung Marty Diastolic (mm Hg) 2020-08-30 10:00:00 Mem ben Trujilloann Temperature Oral (F) 2020-08-30 00:00:00 96.9 F [facility] Temperature Oral (F) 2020-08-29 11:26:00 97.6 F [facility] Marty Height 2020-08-29 10:30:[address] [facility] 2020-08-29 10:30:00 [facility] BMI Calculated 2020-08-29 10:30:00 [place] andre [facility] Procedures Procedure Date / Time Performing Clinician Source Performed URINALYSIS 2022-05-10 19:36:00 Home Matthews [facility] TROPONIN I 2022-05-10 18:34:00 Home Matthews [facility] COMP. METABOLIC PANEL 2022-05-10 18:34:00 Home Matthews [facility] ([id number]) [facility] CBC WITH DIFF 2022-05-10 18:34:00 Home Matthews [facility] XR CHEST 2 VW 2022-05-10 17:24:58 Byron Home B [facility] CONSENT/REFUSAL FOR 2022-05-10 16:26:23 Doctor [facility], [facility] DIAGNOSIS AND TREATMENT [place] [facility] CONSENT/REFUSAL FOR 2022-05-10 16:26:09 Doctor Unassigned, [facility] DIAGNOSIS AND TREATMENT [place] [facility] URINALYSIS 2022-05-08 22:43:00 Theresa Hickman [facility] XR CHEST 2 VW 2022-05-06 22:56:53 Anette Olea [facility] COMP. METABOLIC PANEL 2022-05-06 22:14:00 Anette Olea [facility] ([id number]) [facility] CBC WITH DIFF 2022-05-06 22:14:00 Anette Olea [facility] COVID-19 (ID NOW RAPID 2022-05-06 22:14:00 Anette Olea [facility] TESTING) Medical [place] BASIC METABOLIC PANEL (NA, 2022-04-22 21:23:[address] [facility] K, CL, CO2, GLUCOSE, BUN, Medica l Branch CREATININE, CA) CBC WITH DIFF 2022-04-22 21:23:00 Paulette [facility] CONSENT/REFUSAL FOR 2022-04-22 19:45:46 Doctor Unassigned, [facility] DIAGNOSIS AND TREATMENT [place] [facility] SARS-COV-2 COVID-19 2022-03-05 16:09:27 [facility] DIMITRIS-SUCROSE VACCINE [address] [place] [address] YRS+, BIVALENT 0.3ML, IM, (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) FLU 2022-03-05 16:09:27 [facility] VACC(),65+YR,0.5 Medica l Branch ML,IM,ADJUVANTED,QUAD(FLUA D) FLU 2022-03-05 16:09:27 [facility] VACC(),65+YR,0.5 Medica l Branch ML,IM,ADJUVANTED,QUAD(FLUA D) SARS-COV-2 COVID-19 2022-03-05 16:09:27 [facility] DIMITRIS-SUCROSE VACCINE [address] [place] [address] YRS+, BIVALENT 0.3ML, IM, (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) MAGNESIUM 2022-02-15 09:41:00 Sofia Garcia [facility] BASIC METABOLIC PANEL (NA, 2022-02-15 09:41:00 [facility]ia [facility] K, CL, CO2, GLUCOSE, BUN, Medica l Branch CREATININE, CA) CBC WITH DIFF 2022-02-15 09:41:00 Sofia Garcia [facility] N-TERMINAL PRO-BNP 2022-02-15 09:41:00 Sofia Garcia [facility] CBC WITH DIFF 2022-02-15 09:41:00 Sofia Garcia [facility] BASIC METABOLIC PANEL (NA, 2022-02-15 09:41:00 [facility], [facility], GLUCOSE, BUN, Medica l Branch CREATININE, CA) MAGNESIUM 2022-02-15 09:41:00 Radha [facility] N-TERMINAL PRO-BNP 2022-02-15 09:41:00 Sofia Garcia [facility] BASIC METABOLIC PANEL (NA, 2022-02-13 09:40:00 Sofia [facility] K, CL, CO2, GLUCOSE, BUN, Medica l Branch CREATININE, CA) CBC WITH DIFF 2022-02-13 09:40:00 [facility] BASIC METABOLIC PANEL (NA, 2022-02-13 09:40:00 [facility], CO2, GLUCOSE, BUN, Medica l Branch CREATININE, CA) CBC WITH DIFF 2022-02-13 09:40:00 [facility] TROPONIN I 2022-02-11 23:41:00 Radha [facility] N-TERMINAL PRO-BNP 2022-02-11 23:41:00 Radha [facility] TROPONIN I 2022-02-11 23:41:00 Rad[facility] N-TERMINAL PRO-BNP 2022-02-11 23:41:00 Sofia Garcia [facility] HB ECG ROUTINE & RHYTHM 2022-02-11 22:15:36 [facility] 2022-02-11 21:26:50 [facility] (TTE) 2022-02-11 21:26:50 [facility] 2022-02-11 07:45:43 Reilly Means [facility] CT ABDOMEN PELVIS W 2022-02-11 07:45:43 Reilly Means [facility] RAPID INFLUENZA A/B 2022-02-11 06:54:00 Reilly Means [facility] RAPID INFLUENZA A/B 2022-02-11 06:54:00 Reilly Means [facility] URINALYSIS 2022-02-11 06:45:00 Reilly [facility] URINE CULTURE 2022-02-11 06:45:00 Reilly [facility] URINALYSIS 2022-02-11 06:45:00 Reilly [facility] URINE CULTURE 2022-02-11 06:45:00 Reilly [facility] HB ECG ROUTINE & RHYTHM 2022-02-11 05:22:08 Reilly Means [facility] HB ECG ROUTINE & RHYTHM 2022-02-11 05:22:08 Reilly Means [facility] BLOOD CULTURE SCREEN 2022-02-11 04:58:00 Reilly Means [facility] TROPONIN I 2022-02-11 04:58:00 Reilly [facility] COMP. METABOLIC PANEL 2022-02-11 04:58:00 Reilly Means [facility] ([id number]) Medical Branch CBC WITH DIFF 2022-02-11 04:58:00 [facility] PROTHROMBIN TIME / INR 2022-02-11 04:58:00 Re[facility] ACTIVATED PARTIAL THRMPLAS 2022-02-11 04:58:00 Reilly Means [facility] N-TERMINAL PRO-BNP 2022-02-11 04:58:00 Reilly Means [facility] LACTIC ACID WHOLE BLOOD 2022-02-11 04:58:00 Reilly Means [facility] COVID-19 (ID NOW RAPID 2022-02-11 04:58:00 Reilly Means [facility] TESTING) Medical Branch LAB ONLY COVID 2022-02-11 04:58:00 Reilly Means [facility] INTERPRETATION [facility] CBC WITH DIFF 2022-02-11 04:58:00 Reilly [facility] ACTIVATED PARTIAL THRMPLAS 2022-02-11 04:58:00 Reilly Means [facility] acute hospital PROTHROMBIN TIME / INR 2022-02-11 04:58:00 [facility] COVID-19 (ID NOW RAPID 2022-02-11 04:58:00 Reilly Means [facility] TESTING) Medical Branch COMP. METABOLIC PANEL 2022-02-11 04:58:00 Reilly Means [facility] ([id number]) Medical [place] TROPONIN I 2022-02-11 04:58:00 Miguelangel [facility] N-TERMINAL PRO-BNP 2022-02-11 04:58:00 Reilly Means [facility] BLOOD CULTURE SCREEN 2022-02-11 04:58:00 Reilly Means [facility] LACTIC ACID WHOLE BLOOD 2022-02-11 04:58:00 Reilly Means [facility] LAB ONLY COVID 2022-02-11 04:58:00 Reilly Means [facility] INTERPRETATION [facility] XR CHEST 1 VW 2022-02-11 04:27:42 Miguelangel [facility] XR CHEST 1 2022-02-11 04:27:42 [facility] HOSPITAL ADMISSION 2022-02-10 05:01:00 Doctor Unassigned, [facility] [place] [facility] [place] HOSPITAL ADMISSION 2022-02-10 05:01:00 Doctor Unassigned, [facility] Name [facility] ECG 12-LEAD 2021-07-14 15:14:00 Elan Lira [facility] [id number] 2021-06-17 00:00:00 RASSA [facility] GASTROINTESTINAL PANEL 2020-12-08 22:21:[address] [facility] XR ABDOMEN 1 VW 2020-12-08 18:06:32 Eliseo Arce spital OR [place] < 1 HOUR 2020-09-05 22:39:00 Eliseo Arce spijose SURGICAL PATHOLOGY REQUEST 2020-09-05 21:54:00 Eliseo Arce [facility] XR CHEST 1 VW PORTABLE 2020-09-05 19:55:00 Eliseo Arce [facility] DISCHARGE PATIENT 2020-09-05 17:27:55 Lucas Harirs [facility] ME AN ELECTIVE 2020-09-05 16:47:23 Kriit Flood V. [facility] ENDOTRACHEAL AIRWAY EGD, INTRAOPERATIVE 2020-09-05 16:27:00 Eliseo Arce [facility] PARTIAL THROMBOPLASTIN 2020-09-05 15:04:00 Sarai Maharaj [facility] TIME (PTT) M. PROTHROMBIN TIME WITH INR 2020-09-05 15:04:00 Mindy Maharaj [facility] M. Plan of Care Planned Activity Planned Date Details Comments Source Future Scheduled 2022-08-07 SHINGLES VACCINES (1 Met [facility] Test 23:30:11 of 2) [code = SHINGLES VACCINES (1 of 2)] Future Scheduled 2022-08-07 BREAST CANCER [facility] Test 23:30:11 SCREENING [code = BREAST CANCER SCREENING] Future Scheduled 2022-08-07 COLONOSCOPY SCREENING [facility] Test 23:30:11 [code = COLONOSCOPY SCREENING] Future Scheduled 2022-08-07 HEPATITIS B VACCINES Met [facility] Test 23:30:11 (1 of 3 - Risk 3-dose series) [code = HEPATITIS B VACCINES (1 of 3 - Risk 3-dose series)] Future Scheduled 2022-08-07 COVID-19 VACCINE (3 - [facility] Test 23:30:11 Booster for Pfizer series) [code = COVID-19 VACCINE (3 - Booster for Pfizer series)] Future Scheduled 2022-08-07 65+ PNEUMOCOCCAL [facility] Test 23:30:11 VACCINE (4 - PPSV23 if available, else PCV20) [code = 65+ PNEUMOCOCCAL VACCINE (4 - PPSV23 if available, else PCV20)] Future Scheduled 2022-08-07 INFLUENZA VACCINE Method [facility] Test 23:30:11 [code = INFLUENZA VACCINE] Future Scheduled 2022-08-07 SHINGLES VACCINES (1 Met [facility] Test 23:30:11 of 2) [code = SHINGLES VACCINES (1 of 2)] Future Scheduled 2022-08-07 BREAST CANCER [facility] Test 23:30:11 SCREENING [code = BREAST CANCER SCREENING] Future Scheduled 2022-08-07 COLONOSCOPY SCREENING [facility] Test 23:30:11 [code = COLONOSCOPY SCREENING] Future Scheduled 2022-08-07 HEPATITIS B VACCINES Met [facility] Test 23:30:11 (1 of 3 - Risk 3-dose series) [code = HEPATITIS B VACCINES (1 of 3 - Risk 3-dose series)] Future Scheduled 2022-08-07 COVID-19 VACCINE (3 - [facility] Test 23:30:11 Booster for Pfizer series) [code = COVID-19 VACCINE (3 - Booster for Pfizer series)] Future Scheduled 2022-08-07 65+ PNEUMOCOCCAL [facility] Test 23:30:11 VACCINE (4 - PPSV23 if available, else PCV20) [code = 65+ PNEUMOCOCCAL VACCINE (4 - PPSV23 if available, else PCV20)] Future Scheduled 2022-08-07 INFLUENZA VACCINE Method [facility] Test 23:30:11 [code = INFLUENZA VACCINE] Future Scheduled 2022-08-06 SHINGLES VACCINES (1 Met [facility] Test 15:48:02 of 2) [code = SHINGLES VACCINES (1 of 2)] Future Scheduled 2022-08-06 BREAST CANCER [facility] Test 15:48:02 SCREENING [code = BREAST CANCER SCREENING] Future Scheduled 2022-08-06 COLONOSCOPY SCREENING [facility] Test 15:48:02 [code = COLONOSCOPY SCREENING] Future Scheduled 2022-08-06 HEPATITIS B VACCINES Met [facility] Test 15:48:02 (1 of 3 - Risk 3-dose series) [code = HEPATITIS B VACCINES (1 of 3 - Risk 3-dose series)] Future Scheduled 2022-08-06 COVID-19 VACCINE (3 - [facility] Test 15:48:02 Booster for Pfizer series) [code = COVID-19 VACCINE (3 - Booster for Pfizer series)] Future Scheduled 2022-08-06 65+ [facility]CCAL [facility] 15:48:02 VACCINE (4 - PPSV23 if available, else PCV20) [code = 65+ PNEUMOCOCCAL VACCINE (4 - PPSV23 if available, else PCV20)] Future Scheduled 2022-08-06 INFLUENZA VACCINE Method [facility] Test 15:48:02 [code = INFLUENZA VACCINE] Future Scheduled 2022-06-11 SHINGLES VACCINES (1 Met [facility] Test 16:10:12 of 2) [code = SHINGLES VACCINES (1 of 2)] Future Scheduled 2022-06-11 BREAST CANCER [facility] Test 16:10:12 SCREENING [code = BREAST CANCER SCREENING] Future Scheduled 2022-06-11 COLONOSCOPY SCREENING Me [facility] Test 16:10:12 [code = COLONOSCOPY SCREENING] Future Scheduled 2022-06-11 HEPATITIS B VACCINES Met [facility] Test 16:10:12 (1 of 3 - Risk 3-dose series) [code = HEPATITIS B VACCINES (1 of 3 - Risk 3-dose series)] Future Scheduled 2022-06-11 COVID-19 VACCINE (3 - [facility] Test 16:10:12 Booster for Pfizer series) [code = COVID-19 VACCINE (3 - Booster for Pfizer series)] Future Scheduled 2022-06-11 65+ [facility]CCAL [facility]:10:12 VACCINE (4 - PPSV23 if available, else PCV20) [code = 65+ PNEUMOCOCCAL VACCINE (4 - PPSV23 if available, else PCV20)] Future Scheduled 2022-06-11 INFLUENZA VACCINE Method [facility] Test 16:10:12 [code = INFLUENZA VACCINE] Future Scheduled 2022-06-11 SHINGLES VACCINES (1 Met [facility] Test 16:10:12 of 2) [code = SHINGLES VACCINES (1 of 2)] Future Scheduled 2022-06-11 BREAST CANCER [facility] Test 16:10:12 SCREENING [code = BREAST CANCER SCREENING] Future Scheduled 2022-06-11 COLONOSCOPY SCREENING [facility] Test 16:10:12 [code = COLONOSCOPY SCREENING] Future Scheduled 2022-06-11 HEPATITIS B VACCINES Met [facility] Test 16:10:12 (1 of 3 - Risk 3-dose series) [code = HEPATITIS B VACCINES (1 of 3 - Risk 3-dose series)] Future Scheduled 2022-06-11 COVID-19 VACCINE (3 - [facility] Test 16:10:12 Booster for Pfizer series) [code = COVID-19 VACCINE (3 - Booster for Pfizer series)] Future Scheduled 2022-06-11 65+ [facility] 16:10:12 VACCINE (4 - PPSV23 if available, else PCV20) [code = 65+ PNEUMOCOCCAL VACCINE (4 - PPSV23 if available, else PCV20)] Future Scheduled 2022-06-11 INFLUENZA VACCINE Method [facility] Test 16:10:12 [code = INFLUENZA VACCINE] Future Scheduled 2022-06-11 SHINGLES VACCINES (1 Met [facility] Test 16:10:12 of 2) [code = SHINGLES VACCINES (1 of 2)] Future Scheduled 2022-06-11 BREAST CANCER [facility] Test 16:10:12 SCREENING [code = BREAST CANCER SCREENING] Future Scheduled 2022-06-11 COLONOSCOPY SCREENING [facility] Test 16:10:12 [code = COLONOSCOPY SCREENING] Future Scheduled 2022-06-11 HEPATITIS B VACCINES Met [facility] Test 16:10:12 (1 of 3 - Risk 3-dose series) [code = HEPATITIS B VACCINES (1 of 3 - Risk 3-dose series)] Future Scheduled 2022-06-11 COVID-19 VACCINE (3 - Me [facility] Test 16:10:12 Booster for Pfizer series) [code = COVID-19 VACCINE (3 - Booster for Pfizer series)] Future Scheduled 2022-06-11 65+ [facility]CCAL [facility] Test 16:10:12 VACCINE (4 - PPSV23 if available, else PCV20) [code = 65+ PNEUMOCOCCAL VACCINE (4 - PPSV23 if available, else PCV20)] Future Scheduled 2022-06-11 INFLUENZA VACCINE [facility] Test 16:10:12 [code = INFLUENZA VACCINE] Future Scheduled 2022-06-11 SHINGLES VACCINES (1 Met [facility] Test 16:10:12 of 2) [code = SHINGLES VACCINES (1 of 2)] Future Scheduled 2022-06-11 BREAST CANCER [facility] Test 16:10:12 SCREENING [code = BREAST CANCER SCREENING] Future Scheduled 2022-06-11 COLONOSCOPY SCREENING [facility] Test 16:10:12 [code = COLONOSCOPY SCREENING] Future Scheduled 2022-06-11 HEPATITIS B VACCINES Met [facility] Test 16:10:12 (1 of 3 - Risk 3-dose series) [code = HEPATITIS B VACCINES (1 of 3 - Risk 3-dose series)] Future Scheduled 2022-06-11 COVID-19 VACCINE (3 - [facility] Test 16:10:12 Booster for Pfizer series) [code = COVID-19 VACCINE (3 - Booster for Pfizer series)] Future Scheduled 2022-06-11 65+ [facility] 16:10:12 VACCINE (4 - PPSV23 if available, else PCV20) [code = 65+ PNEUMOCOCCAL VACCINE (4 - PPSV23 if available, else PCV20)] Future Scheduled 2022-06-11 INFLUENZA VACCINE [facility] Test 16:10:12 [code = INFLUENZA VACCINE] Future Scheduled 2022-06-11 SHINGLES VACCINES (1 Met [facility] Test 16:10:12 of 2) [code = SHINGLES VACCINES (1 of 2)] Future Scheduled 2022-06-11 BREAST CANCER [facility] Test 16:10:12 SCREENING [code = BREAST CANCER SCREENING] Future Scheduled 2022-06-11 COLONOSCOPY SCREENING [facility] Test 16:10:12 [code = COLONOSCOPY SCREENING] Future Scheduled 2022-06-11 HEPATITIS B VACCINES Met [facility] Test 16:10:12 (1 of 3 - Risk 3-dose series) [code = HEPATITIS B VACCINES (1 of 3 - Risk 3-dose series)] Future Scheduled 2022-06-11 COVID-19 VACCINE (3 - [facility] Test 16:10:12 Booster for Pfizer series) [code = COVID-19 VACCINE (3 - Booster for Pfizer series)] Future Scheduled 2022-06-11 65+ [facility] 16:10:12 VACCINE (4 - PPSV23 if available, else PCV20) [code = 65+ PNEUMOCOCCAL VACCINE (4 - PPSV23 if available, else PCV20)] Future Scheduled 2022-06-11 INFLUENZA VACCINE [facility] Test 16:10:12 [code = INFLUENZA VACCINE] Future Scheduled 2022-06-11 SHINGLES VACCINES (1 Met [facility] Test 16:10:12 of 2) [code = SHINGLES VACCINES (1 of 2)] Future Scheduled 2022-06-11 BREAST CANCER [facility] Test 16:10:12 SCREENING [code = BREAST CANCER SCREENING] Future Scheduled 2022-06-11 COLONOSCOPY SCREENING [facility] Test 16:10:12 [code = COLONOSCOPY SCREENING] Future Scheduled 2022-06-11 HEPATITIS B VACCINES Met [facility] Test 16:10:12 (1 of 3 - Risk 3-dose series) [code = HEPATITIS B VACCINES (1 of 3 - Risk 3-dose series)] Future Scheduled 2022-06-11 COVID-19 VACCINE (3 - [facility] Test 16:10:12 Booster for Pfizer series) [code = COVID-19 VACCINE (3 - Booster for Pfizer series)] Future Scheduled 2022-06-11 65+ PNEUMOCOCCAL [facility] Test 16:10:12 VACCINE (4 - PPSV23 if available, else PCV20) [code = 65+ PNEUMOCOCCAL VACCINE (4 - PPSV23 if available, else PCV20)] Future Scheduled 2022-06-11 INFLUENZA VACCINE Method [facility] Test 16:10:12 [code = INFLUENZA VACCINE] Future Scheduled 2022-06-11 SHINGLES VACCINES (1 Met [facility] Test 16:10:12 of 2) [code = SHINGLES VACCINES (1 of 2)] Future Scheduled 2022-06-11 BREAST CANCER [facility] Test 16:10:12 SCREENING [code = BREAST CANCER SCREENING] Future Scheduled 2022-06-11 COLONOSCOPY SCREENING [facility] Test 16:10:12 [code = COLONOSCOPY SCREENING] Future Scheduled 2022-06-11 HEPATITIS B VACCINES Met [facility] Test 16:10:12 (1 of 3 - Risk 3-dose series) [code = HEPATITIS B VACCINES (1 of 3 - Risk 3-dose series)] Future Scheduled 2022-06-11 COVID-19 VACCINE (3 - Me [facility] Test 16:10:12 Booster for Pfizer series) [code = COVID-19 VACCINE (3 - Booster for Pfizer series)] Future Scheduled 2022-06-11 65+ [facility]CCAL [facility] 16:10:12 VACCINE (4 - PPSV23 if available, else PCV20) [code = 65+ PNEUMOCOCCAL VACCINE (4 - PPSV23 if available, else PCV20)] Future Scheduled 2022-06-11 INFLUENZA VACCINE Method [facility] Test 16:10:12 [code = INFLUENZA VACCINE] Future Scheduled 2022-06-11 SHINGLES VACCINES (1 Met [facility] Test 16:10:12 of 2) [code = SHINGLES VACCINES (1 of 2)] Future Scheduled 2022-06-11 BREAST CANCER [facility] Test 16:10:12 SCREENING [code = BREAST CANCER SCREENING] Future Scheduled 2022-06-11 COLONOSCOPY SCREENING [facility] Test 16:10:12 [code = COLONOSCOPY SCREENING] Future Scheduled 2022-06-11 HEPATITIS B VACCINES Met [facility] Test 16:10:12 (1 of 3 - Risk 3-dose series) [code = HEPATITIS B VACCINES (1 of 3 - Risk 3-dose series)] Future Scheduled 2022-06-11 COVID-19 VACCINE (3 - [facility] Test 16:10:12 Booster for Pfizer series) [code = COVID-19 VACCINE (3 - Booster for Pfizer series)] Future Scheduled 2022-06-11 65+ [facility] [facility] 16:10:12 VACCINE (4 - PPSV23 if available, else PCV20) [code = 65+ PNEUMOCOCCAL VACCINE (4 - PPSV23 if available, else PCV20)] Future Scheduled 2022-06-11 INFLUENZA VACCINE Method [facility] Test 16:10:12 [code = INFLUENZA VACCINE] Future Scheduled 2022-06-11 SHINGLES VACCINES (1 Met [facility] Test 16:10:12 of 2) [code = SHINGLES VACCINES (1 of 2)] Future Scheduled 2022-06-11 BREAST CANCER [facility] Test 16:10:12 SCREENING [code = BREAST CANCER SCREENING] Future Scheduled 2022-06-11 COLONOSCOPY SCREENING Me [facility] Test 16:10:12 [code = COLONOSCOPY SCREENING] Future Scheduled 2022-06-11 HEPATITIS B VACCINES Met [facility] Test 16:10:12 (1 of 3 - Risk 3-dose series) [code = HEPATITIS B VACCINES (1 of 3 - Risk 3-dose series)] Future Scheduled 2022-06-11 COVID-19 VACCINE (3 - [facility] Test 16:10:12 Booster for Pfizer series) [code = COVID-19 VACCINE (3 - Booster for Pfizer series)] Future Scheduled 2022-06-11 65+ [facility] [facility] 16:10:12 VACCINE (4 - PPSV23 if available, else PCV20) [code = 65+ PNEUMOCOCCAL VACCINE (4 - PPSV23 if available, else PCV20)] Future Scheduled 2022-06-11 INFLUENZA VACCINE [facility] Test 16:10:12 [code = INFLUENZA VACCINE] Future Scheduled 2022-05-10 SHINGLES VACCINES (1 Met [facility] Test 10:21:35 of 2) [code = SHINGLES VACCINES (1 of 2)] Future Scheduled 2022-05-10 BREAST CANCER [facility] Test 10:21:35 SCREENING [code = BREAST CANCER SCREENING] Future Scheduled 2022-05-10 COLONOSCOPY SCREENING Me [facility] Test 10:21:35 [code = COLONOSCOPY SCREENING] Future Scheduled 2022-05-10 HEPATITIS B VACCINES Met [facility] Test 10:21:35 (1 of 3 - Risk 3-dose series) [code = HEPATITIS B VACCINES (1 of 3 - Risk 3-dose series)] Future Scheduled 2022-05-10 COVID-19 VACCINE (3 - [facility] Test 10:21:35 Booster for Pfizer series) [code = COVID-19 VACCINE (3 - Booster for Pfizer series)] Future Scheduled 2022-05-10 65+ [facility] [facility] Test 10:21:35 VACCINE (4 - PPSV23 if available, else PCV20) [code = 65+ PNEUMOCOCCAL VACCINE (4 - PPSV23 if available, else PCV20)] Future Scheduled 2022-05-10 INFLUENZA VACCINE Method [facility] Test 10:21:35 [code = INFLUENZA VACCINE] Future Scheduled 2022-05-10 SHINGLES VACCINES (1 Met [facility] Test 10:21:35 of 2) [code = SHINGLES VACCINES (1 of 2)] Future Scheduled 2022-05-10 BREAST CANCER [facility] Test 10:21:35 SCREENING [code = BREAST CANCER SCREENING] Future Scheduled 2022-05-10 COLONOSCOPY SCREENING [facility] Test 10:21:35 [code = COLONOSCOPY SCREENING] Future Scheduled 2022-05-10 HEPATITIS B VACCINES Met [facility] Test 10:21:35 (1 of 3 - Risk 3-dose series) [code = HEPATITIS B VACCINES (1 of 3 - Risk 3-dose series)] Future Scheduled 2022-05-10 COVID-19 VACCINE (3 - [facility] Test 10:21:35 Booster for Pfizer series) [code = COVID-19 VACCINE (3 - Booster for Pfizer series)] Future Scheduled 2022-05-10 65+ [facility] 10:21:35 VACCINE (4 - PPSV23 if available, else PCV20) [code = 65+ PNEUMOCOCCAL VACCINE (4 - PPSV23 if available, else PCV20)] Future Scheduled 2022-05-10 INFLUENZA VACCINE [facility] Test 10:21:35 [code = INFLUENZA VACCINE] Future Scheduled 2022-05-06 SHINGLES VACCINES (1 Met [facility] Test 14:03:13 of 2) [code = SHINGLES VACCINES (1 of 2)] Future Scheduled 2022-05-06 BREAST CANCER [facility] Test 14:03:13 SCREENING [code = BREAST CANCER SCREENING] Future Scheduled 2022-05-06 COLONOSCOPY SCREENING [facility] Test 14:03:13 [code = COLONOSCOPY SCREENING] Future Scheduled 2022-05-06 HEPATITIS B VACCINES Met [facility] Test 14:03:13 (1 of 3 - Risk 3-dose series) [code = HEPATITIS B VACCINES (1 of 3 - Risk 3-dose series)] Future Scheduled 2022-05-06 COVID-19 VACCINE (3 - [facility] Test 14:03:13 Booster for Pfizer series) [code = COVID-19 VACCINE (3 - Booster for Pfizer series)] Future Scheduled 2022-05-06 65+ PNEUMOCOCCAL [facility] Test 14:03:13 VACCINE (4 - PPSV23 if available, else PCV20) [code = 65+ PNEUMOCOCCAL VACCINE (4 - PPSV23 if available, else PCV20)] Future Scheduled 2022-05-06 INFLUENZA VACCINE [facility] Test 14:03:13 [code = INFLUENZA VACCINE] Future Scheduled 2022-04-30 SHINGLES VACCINES (1 Met [facility] Test 01:07:32 of 2) [code = SHINGLES VACCINES (1 of 2)] Future Scheduled 2022-04-30 BREAST CANCER [facility] Test 01:07:32 SCREENING [code = BREAST CANCER SCREENING] Future Scheduled 2022-04-30 COLONOSCOPY SCREENING [facility] Test 01:07:32 [code = COLONOSCOPY SCREENING] Future Scheduled 2022-04-30 HEPATITIS B VACCINES Met [facility] Test 01:07:32 (1 of 3 - Risk 3-dose series) [code = HEPATITIS B VACCINES (1 of 3 - Risk 3-dose series)] Future Scheduled 2022-04-30 COVID-19 VACCINE (3 - [facility] Test 01:07:32 Booster for Pfizer series) [code = COVID-19 VACCINE (3 - Booster for Pfizer series)] Future Scheduled 2022-04-30 65+ [facility]AL [facility]:07:32 VACCINE (4 - PPSV23 if available, else PCV20) [code = 65+ PNEUMOCOCCAL VACCINE (4 - PPSV23 if available, else PCV20)] Future Scheduled 2022-04-30 [facility] 01:07:32 [code = INFLUENZA VACCINE] Future Scheduled 2022-04-30 SHINGLES VACCINES (1 Met [facility] Test 01:07:32 of 2) [code = SHINGLES VACCINES (1 of 2)] Future Scheduled 2022-04-30 BREAST CANCER [facility] Test 01:07:32 SCREENING [code = BREAST CANCER SCREENING] Future Scheduled 2022-04-30 COLONOSCOPY SCREENING [facility] Test 01:07:32 [code = COLONOSCOPY SCREENING] Future Scheduled 2022-04-30 HEPATITIS B VACCINES Met [facility] Test 01:07:32 (1 of 3 - Risk 3-dose series) [code = HEPATITIS B VACCINES (1 of 3 - Risk 3-dose series)] Future Scheduled 2022-04-30 COVID-19 VACCINE (3 - [facility] Test 01:07:32 Booster for Pfizer series) [code = COVID-19 VACCINE (3 - Booster for Pfizer series)] Future Scheduled 2022-04-30 65+ PNEUMOCOCCAL [facility] Test 01:07:32 VACCINE (4 - PPSV23 if available, else PCV20) [code = 65+ PNEUMOCOCCAL VACCINE (4 - PPSV23 if available, else PCV20)] Future Scheduled 2022-04-30 INFLUENZA VACCINE Method [facility] Test 01:07:32 [code = INFLUENZA VACCINE] Future Scheduled 2022-04-30 SHINGLES VACCINES (1 Met [facility] Test 01:07:32 of 2) [code = SHINGLES VACCINES (1 of 2)] Future Scheduled 2022-04-30 BREAST CANCER [facility] Test 01:07:32 SCREENING [code = BREAST CANCER SCREENING] Future Scheduled 2022-04-30 COLONOSCOPY SCREENING [facility] Test 01:07:32 [code = COLONOSCOPY SCREENING] Future Scheduled 2022-04-30 HEPATITIS B VACCINES Met [facility] Test 01:07:32 (1 of 3 - Risk 3-dose series) [code = HEPATITIS B VACCINES (1 of 3 - Risk 3-dose series)] Future Scheduled 2022-04-30 COVID-19 VACCINE (3 - [facility] Test 01:07:32 Booster for Pfizer series) [code = COVID-19 VACCINE (3 - Booster for Pfizer series)] Future Scheduled 2022-04-30 65+ PNEUMOCOCCAL [facility] Test 01:07:32 VACCINE (4 - PPSV23 if available, else PCV20) [code = 65+ PNEUMOCOCCAL VACCINE (4 - PPSV23 if available, else PCV20)] Future Scheduled 2022-04-30 INFLUENZA VACCINE Method [facility] Test 01:07:32 [code = INFLUENZA VACCINE] Future Scheduled 2022-04-25 SHINGLES VACCINES (1 Met [facility] Test 01:45:02 of 2) [code = SHINGLES VACCINES (1 of 2)] Future Scheduled 2022-04-25 BREAST CANCER [facility] Test 01:45:02 SCREENING [code = BREAST CANCER SCREENING] Future Scheduled 2022-04-25 COLONOSCOPY SCREENING [facility] Test 01:45:02 [code = COLONOSCOPY SCREENING] Future Scheduled 2022-04-25 HEPATITIS B VACCINES Met [facility] Test 01:45:02 (1 of 3 - Risk 3-dose series) [code = HEPATITIS B VACCINES (1 of 3 - Risk 3-dose series)] Future Scheduled 2022-04-25 COVID-19 VACCINE (3 - [facility] Test 01:45:02 Booster for Pfizer series) [code = COVID-19 VACCINE (3 - Booster for Pfizer series)] Future Scheduled 2022-04-25 65+ PNEUMOCOCCAL [facility] Test 01:45:02 VACCINE (4 - PPSV23 if available, else PCV20) [code = 65+ PNEUMOCOCCAL VACCINE (4 - PPSV23 if available, else PCV20)] Future Scheduled 2022-04-25 INFLUENZA VACCINE Method [facility] Test 01:45:02 [code = INFLUENZA VACCINE] Future Scheduled 2022-03-25 SHINGLES VACCINES (1 Met [facility] Test 14:48:42 of 2) [code = SHINGLES VACCINES (1 of 2)] Future Scheduled 2022-03-25 BREAST CANCER [facility] Test 14:48:42 SCREENING [code = BREAST CANCER SCREENING] Future Scheduled 2022-03-25 COLONOSCOPY SCREENING [facility] Test 14:48:42 [code = COLONOSCOPY SCREENING] Future Scheduled 2022-03-25 HEPATITIS B VACCINES Met [facility] Test 14:48:42 (1 of 3 - Risk 3-dose series) [code = HEPATITIS B VACCINES (1 of 3 - Risk 3-dose series)] Future Scheduled 2022-03-25 COVID-19 VACCINE (3 - Me [facility] Test 14:48:42 Booster for Pfizer series) [code = COVID-19 VACCINE (3 - Booster for Pfizer series)] Future Scheduled 2022-03-25 65+ [facility]AL [facility] 14:48:42 VACCINE (4 - PPSV23 if available, else PCV20) [code = 65+ PNEUMOCOCCAL VACCINE (4 - PPSV23 if available, else PCV20)] Future Scheduled 2022-03-25 INFLUENZA VACCINE [facility] Test 14:48:42 [code = INFLUENZA VACCINE] Future Scheduled 2022-03-25 SHINGLES VACCINES (1 Met [facility] Test 14:48:42 of 2) [code = SHINGLES VACCINES (1 of 2)] Future Scheduled 2022-03-25 BREAST CANCER [facility] Test 14:48:42 SCREENING [code = BREAST CANCER SCREENING] Future Scheduled 2022-03-25 COLONOSCOPY SCREENING [facility] Test 14:48:42 [code = COLONOSCOPY SCREENING] Future Scheduled 2022-03-25 HEPATITIS B VACCINES Met [facility] Test 14:48:42 (1 of 3 - Risk 3-dose series) [code = HEPATITIS B VACCINES (1 of 3 - Risk 3-dose series)] Future Scheduled 2022-03-25 COVID-19 VACCINE (3 - [facility] Test 14:48:42 Booster for Pfizer series) [code = COVID-19 VACCINE (3 - Booster for Pfizer series)] Future Scheduled 2022-03-25 65+ [facility]CCAL [facility] 14:48:42 VACCINE (4 - PPSV23 if available, else PCV20) [code = 65+ PNEUMOCOCCAL VACCINE (4 - PPSV23 if available, else PCV20)] Future Scheduled 2022-03-25 INFLUENZA VACCINE [facility] Test 14:48:42 [code = INFLUENZA VACCINE] Future Scheduled 2022-03-25 SHINGLES VACCINES (1 Met [facility] Test 14:48:42 of 2) [code = SHINGLES VACCINES (1 of 2)] Future Scheduled 2022-03-25 BREAST CANCER [facility] Test 14:48:42 SCREENING [code = BREAST CANCER SCREENING] Future Scheduled 2022-03-25 COLONOSCOPY SCREENING [facility] Test 14:48:42 [code = COLONOSCOPY SCREENING] Future Scheduled 2022-03-25 HEPATITIS B VACCINES Met [facility] Test 14:48:42 (1 of 3 - Risk 3-dose series) [code = HEPATITIS B VACCINES (1 of 3 - Risk 3-dose series)] Future Scheduled 2022-03-25 COVID-19 VACCINE (3 - [facility] Test 14:48:42 Booster for Pfizer series) [code = COVID-19 VACCINE (3 - Booster for Pfizer series)] Future Scheduled 2022-03-25 65+ PNEUMOCOCCAL [facility] Test 14:48:42 VACCINE (4 - PPSV23 if available, else PCV20) [code = 65+ PNEUMOCOCCAL VACCINE (4 - PPSV23 if available, else PCV20)] Future Scheduled 2022-03-25 INFLUENZA VACCINE [facility] Test 14:48:42 [code = INFLUENZA VACCINE] Future Scheduled 2022-03-25 SHINGLES VACCINES (1 Met [facility] Test 14:48:42 of 2) [code = SHINGLES VACCINES (1 of 2)] Future Scheduled 2022-03-25 BREAST CANCER [facility] Test 14:48:42 SCREENING [code = BREAST CANCER SCREENING] Future Scheduled 2022-03-25 COLONOSCOPY SCREENING [facility] Test 14:48:42 [code = COLONOSCOPY SCREENING] Future Scheduled 2022-03-25 HEPATITIS B VACCINES Met [facility] Test 14:48:42 (1 of 3 - Risk 3-dose series) [code = HEPATITIS B VACCINES (1 of 3 - Risk 3-dose series)] Future Scheduled 2022-03-25 COVID-19 VACCINE (3 - [facility] Test 14:48:42 Booster for Pfizer series) [code = COVID-19 VACCINE (3 - Booster for Pfizer series)] Future Scheduled 2022-03-25 65+ [facility]CCAL [facility] 14:48:42 VACCINE (4 - PPSV23 if available, else PCV20) [code = 65+ PNEUMOCOCCAL VACCINE (4 - PPSV23 if available, else PCV20)] Future Scheduled 2022-03-25 INFLUENZA VACCINE [facility] Test 14:48:42 [code = INFLUENZA VACCINE] Future Scheduled 2022-03-25 SHINGLES VACCINES (1 Met [facility] Test 14:48:42 of 2) [code = SHINGLES VACCINES (1 of 2)] Future Scheduled 2022-03-25 BREAST CANCER [facility] Test 14:48:42 SCREENING [code = BREAST CANCER SCREENING] Future Scheduled 2022-03-25 COLONOSCOPY SCREENING [facility] Test 14:48:42 [code = COLONOSCOPY SCREENING] Future Scheduled 2022-03-25 HEPATITIS B VACCINES Met [facility] Test 14:48:42 (1 of 3 - Risk 3-dose series) [code = HEPATITIS B VACCINES (1 of 3 - Risk 3-dose series)] Future Scheduled 2022-03-25 COVID-19 VACCINE (3 - [facility] Test 14:48:42 Booster for Pfizer series) [code = COVID-19 VACCINE (3 - Booster for Pfizer series)] Future Scheduled 2022-03-25 65+ [facility]CCAL [facility] 14:48[facility]42 VACCINE (4 - PPSV23 if available, else PCV20) [code = 65+ PNEUMOCOCCAL VACCINE (4 - PPSV23 if available, else PCV20)] Future Scheduled 2022-03-25 INFLUENZA VACCINE Method [facility] Test 14:48:42 [code = INFLUENZA VACCINE] Future Scheduled 2022-03-25 SHINGLES VACCINES (1 Met [facility] Test 14:48:42 of 2) [code = SHINGLES VACCINES (1 of 2)] Future Scheduled 2022-03-25 BREAST CANCER [facility] Test 14:48:42 SCREENING [code = BREAST CANCER SCREENING] Future Scheduled 2022-03-25 COLONOSCOPY SCREENING [facility] Test 14:48:42 [code = COLONOSCOPY SCREENING] Future Scheduled 2022-03-25 HEPATITIS B VACCINES Met [facility] Test 14:48:42 (1 of 3 - Risk 3-dose series) [code = HEPATITIS B VACCINES (1 of 3 - Risk 3-dose series)] Future Scheduled 2022-03-25 COVID-19 VACCINE (3 - [facility] Test 14:48:42 Booster for Pfizer series) [code = COVID-19 VACCINE (3 - Booster for Pfizer series)] Future Scheduled 2022-03-25 65+ [facility] 14:48:42 VACCINE (4 - PPSV23 if available, else PCV20) [code = 65+ PNEUMOCOCCAL VACCINE (4 - PPSV23 if available, else PCV20)] Future Scheduled 2022-03-25 INFLUENZA VACCINE Method [facility] Test 14:48:42 [code = INFLUENZA VACCINE] Future Scheduled 2022-03-25 SHINGLES VACCINES (1 Met [facility] Test 14:48:42 of 2) [code = SHINGLES VACCINES (1 of 2)] Future Scheduled 2022-03-25 BREAST CANCER [facility] Test 14:48:42 SCREENING [code = BREAST CANCER SCREENING] Future Scheduled 2022-03-25 COLONOSCOPY SCREENING [facility] Test 14:48:42 [code = COLONOSCOPY SCREENING] Future Scheduled 2022-03-25 HEPATITIS B VACCINES Met [facility] Test 14:48:42 (1 of 3 - Risk 3-dose series) [code = HEPATITIS B VACCINES (1 of 3 - Risk 3-dose series)] Future Scheduled 2022-03-25 COVID-19 VACCINE (3 - [facility] Test 14:48:42 Booster for Pfizer series) [code = COVID-19 VACCINE (3 - Booster for Pfizer series)] Future Scheduled 2022-03-25 65+ [facility]CCAL [facility] 14:48:42 VACCINE (4 - PPSV23 if available, else PCV20) [code = 65+ PNEUMOCOCCAL VACCINE (4 - PPSV23 if available, else PCV20)] Future Scheduled 2022-03-25 INFLUENZA VACCINE Method [facility] Test 14:48:42 [code = INFLUENZA VACCINE] Future Scheduled 2022-03-25 SHINGLES VACCINES (1 Met [facility] Test 14:48:42 of 2) [code = SHINGLES VACCINES (1 of 2)] Future Scheduled 2022-03-25 BREAST CANCER [facility] Test 14:48:42 SCREENING [code = BREAST CANCER SCREENING] Future Scheduled 2022-03-25 COLONOSCOPY SCREENING [facility] Test 14:48:42 [code = COLONOSCOPY SCREENING] Future Scheduled 2022-03-25 HEPATITIS B VACCINES Met [facility] Test 14:48:42 (1 of 3 - Risk 3-dose series) [code = HEPATITIS B VACCINES (1 of 3 - Risk 3-dose series)] Future Scheduled 2022-03-25 COVID-19 VACCINE (3 - [facility] Test 14:48:42 Booster for Pfizer series) [code = COVID-19 VACCINE (3 - Booster for Pfizer series)] Future Scheduled 2022-03-25 65+ [facility] 14:48:42 VACCINE (4 - PPSV23 if available, else PCV20) [code = 65+ PNEUMOCOCCAL VACCINE (4 - PPSV23 if available, else PCV20)] Future Scheduled 2022-03-25 INFLUENZA VACCINE [facility] Test 14:48:42 [code = INFLUENZA VACCINE] Future Scheduled 2022-03-25 SHINGLES VACCINES (1 Met [facility] Test 14:48:42 of 2) [code = SHINGLES VACCINES (1 of 2)] Future Scheduled 2022-03-25 BREAST CANCER [facility] Test 14:48:42 SCREENING [code = BREAST CANCER SCREENING] Future Scheduled 2022-03-25 COLONOSCOPY SCREENING [facility] Test 14:48:42 [code = COLONOSCOPY SCREENING] Future Scheduled 2022-03-25 HEPATITIS B VACCINES Met [facility] Test 14:48:42 (1 of 3 - Risk 3-dose series) [code = HEPATITIS B VACCINES (1 of 3 - Risk 3-dose series)] Future Scheduled 2022-03-25 COVID-19 VACCINE (3 - [facility] Test 14:48:42 Booster for Pfizer series) [code = COVID-19 VACCINE (3 - Booster for Pfizer series)] Future Scheduled 2022-03-25 65+ [facility] 14:48:42 VACCINE (4 - PPSV23 if available, else PCV20) [code = 65+ PNEUMOCOCCAL VACCINE (4 - PPSV23 if available, else PCV20)] Future Scheduled 2022-03-25 INFLUENZA VACCINE Method [facility] Test 14:48:42 [code = INFLUENZA VACCINE] Future Scheduled 2022-03-04 SHINGLES VACCINES (1 Met [facility] Test 14:03:57 of 2) [code = SHINGLES VACCINES (1 of 2)] Future Scheduled 2022-03-04 BREAST CANCER [facility] Test 14:03:57 SCREENING [code = BREAST CANCER SCREENING] Future Scheduled 2022-03-04 COLONOSCOPY SCREENING [facility] Test 14:03:57 [code = COLONOSCOPY SCREENING] Future Scheduled 2022-03-04 HEPATITIS B VACCINES Met [facility] Test 14:03:57 (1 of 3 - Risk 3-dose series) [code = HEPATITIS B VACCINES (1 of 3 - Risk 3-dose series)] Future Scheduled 2022-03-04 COVID-19 VACCINE (3 - [facility] Test 14:03:57 Booster for Pfizer series) [code = COVID-19 VACCINE (3 - Booster for Pfizer series)] Future Scheduled 2022-03-04 65+ PNEUMOCOCCAL [facility] Test 14:03:57 VACCINE (4 - PPSV23 if available, else PCV20) [code = 65+ PNEUMOCOCCAL VACCINE (4 - PPSV23 if available, else PCV20)] Future Scheduled 2022-03-04 INFLUENZA VACCINE Method [facility] Test 14:03:57 [code = INFLUENZA VACCINE] Future Scheduled 2022-03-04 SHINGLES VACCINES (1 Met [facility] Test 14:03:57 of 2) [code = SHINGLES VACCINES (1 of 2)] Future Scheduled 2022-03-04 BREAST CANCER [facility] Test 14:03:57 SCREENING [code = BREAST CANCER SCREENING] Future Scheduled 2022-03-04 COLONOSCOPY SCREENING [facility] Test 14:03:57 [code = COLONOSCOPY SCREENING] Future Scheduled 2022-03-04 HEPATITIS B VACCINES Met [facility] Test 14:03:57 (1 of 3 - Risk 3-dose series) [code = HEPATITIS B VACCINES (1 of 3 - Risk 3-dose series)] Future Scheduled 2022-03-04 COVID-19 VACCINE (3 - [facility] Test 14:03:57 Booster for Pfizer series) [code = COVID-19 VACCINE (3 - Booster for Pfizer series)] Future Scheduled 2022-03-04 65+ PNEUMOCOCCAL [facility] Test 14:03:57 VACCINE (4 - PPSV23 if available, else PCV20) [code = 65+ PNEUMOCOCCAL VACCINE (4 - PPSV23 if available, else PCV20)] Future Scheduled 2022-03-04 INFLUENZA VACCINE Method [facility] Test 14:03:57 [code = INFLUENZA VACCINE] Future Scheduled 2022-03-04 SHINGLES VACCINES (1 Met [facility] Test 14:03:57 of 2) [code = SHINGLES VACCINES (1 of 2)] Future Scheduled 2022-03-04 BREAST CANCER [facility] Test 14:03:57 SCREENING [code = BREAST CANCER SCREENING] Future Scheduled 2022-03-04 COLONOSCOPY SCREENING [facility] Test 14:03:57 [code = COLONOSCOPY SCREENING] Future Scheduled 2022-03-04 HEPATITIS B VACCINES Met [facility] Test 14:03:57 (1 of 3 - Risk 3-dose series) [code = HEPATITIS B VACCINES (1 of 3 - Risk 3-dose series)] Future Scheduled 2022-03-04 COVID-19 VACCINE (3 - [facility] Test 14:03:57 Booster for Pfizer series) [code = COVID-19 VACCINE (3 - Booster for Pfizer series)] Future Scheduled 2022-03-04 65+ [facility]CCAL [facility] 14:03:57 VACCINE (4 - PPSV23 if available, else PCV20) [code = 65+ PNEUMOCOCCAL VACCINE (4 - PPSV23 if available, else PCV20)] Future Scheduled 2022-03-04 INFLUENZA VACCINE [facility] Test 14:03:57 [code = INFLUENZA VACCINE] Future Scheduled 2022-03-04 SHINGLES VACCINES (1 Met [facility] Test 14:03:57 of 2) [code = SHINGLES VACCINES (1 of 2)] Future Scheduled 2022-03-04 BREAST CANCER [facility] Test 14:03:57 SCREENING [code = BREAST CANCER SCREENING] Future Scheduled 2022-03-04 COLONOSCOPY SCREENING [facility] Test 14:03:57 [code = COLONOSCOPY SCREENING] Future Scheduled 2022-03-04 HEPATITIS B VACCINES Met [facility] Test 14:03:57 (1 of 3 - Risk 3-dose series) [code = HEPATITIS B VACCINES (1 of 3 - Risk 3-dose series)] Future Scheduled 2022-03-04 COVID-19 VACCINE (3 - [facility] Test 14:03:57 Booster for Pfizer series) [code = COVID-19 VACCINE (3 - Booster for Pfizer series)] Future Scheduled 2022-03-04 65+ PNEUMOCOCCAL [facility] Test 14:03:57 VACCINE (4 - PPSV23 if available, else PCV20) [code = 65+ PNEUMOCOCCAL VACCINE (4 - PPSV23 if available, else PCV20)] Future Scheduled 2022-03-04 INFLUENZA VACCINE Method [facility] Test 14:03:57 [code = INFLUENZA VACCINE] Future Scheduled 2022-02-11 SHINGLES VACCINES (1 Met [facility] Test 13:39:12 of 2) [code = SHINGLES VACCINES (1 of 2)] Future Scheduled 2022-02-11 BREAST CANCER [facility] Test 13:39:12 SCREENING [code = BREAST CANCER SCREENING] Future Scheduled 2022-02-11 COLONOSCOPY SCREENING [facility] Test 13:39:12 [code = COLONOSCOPY SCREENING] Future Scheduled 2022-02-11 HEPATITIS B VACCINES Met [facility] Test 13:39:12 (1 of 3 - Risk 3-dose series) [code = HEPATITIS B VACCINES (1 of 3 - Risk 3-dose series)] Future Scheduled 2022-02-11 COVID-19 VACCINE (3 - [facility] Test 13:39:12 Booster for Pfizer series) [code = COVID-19 VACCINE (3 - Booster for Pfizer series)] Future Scheduled 2022-02-11 65+ [facility]CCAL [facility] 13:39:12 VACCINE (4 - PPSV23 or PCV20) [code = 65+ PNEUMOCOCCAL VACCINE (4 - PPSV23 or PCV20)] Future Scheduled 2022-02-11 INFLUENZA VACCINE Method [facility] Test 13:39:12 [code = INFLUENZA VACCINE] Future Scheduled 2022-01-29 SHINGLES VACCINES (1 Met [facility] Test 14:07:20 of 2) [code = SHINGLES VACCINES (1 of 2)] Future Scheduled 2022-01-29 BREAST CANCER [facility] Test 14:07:20 SCREENING [code = BREAST CANCER SCREENING] Future Scheduled 2022-01-29 COLONOSCOPY SCREENING [facility] Test 14:07:20 [code = COLONOSCOPY SCREENING] Future Scheduled 2022-01-29 HEPATITIS B VACCINES Met [facility] Test 14:07:20 (1 of 3 - Risk 3-dose series) [code = HEPATITIS B VACCINES (1 of 3 - Risk 3-dose series)] Future Scheduled 2022-01-29 COVID-19 VACCINE (3 - [facility] Test 14:07:20 Booster for Pfizer series) [code = COVID-19 VACCINE (3 - Booster for Pfizer series)] Future Scheduled 2022-01-29 65+ [facility]CCAL [facility] 14:07:20 VACCINE (4 - PPSV23 or PCV20) [code = 65+ PNEUMOCOCCAL VACCINE (4 - PPSV23 or PCV20)] Future Scheduled 2022-01-29 INFLUENZA VACCINE Method [facility] Test 14:07:20 [code = INFLUENZA VACCINE] Future Scheduled 2022-01-29 SHINGLES VACCINES (1 Met [facility] Test 14:07:20 of 2) [code = SHINGLES VACCINES (1 of 2)] Future Scheduled 2022-01-29 BREAST CANCER [facility] Test 14:07:20 SCREENING [code = BREAST CANCER SCREENING] Future Scheduled 2022-01-29 COLONOSCOPY SCREENING [facility] Test 14:07:20 [code = COLONOSCOPY SCREENING] Future Scheduled 2022-01-29 HEPATITIS B VACCINES Met [facility] Test 14:07:20 (1 of 3 - Risk 3-dose series) [code = HEPATITIS B VACCINES (1 of 3 - Risk 3-dose series)] Future Scheduled 2022-01-29 COVID-19 VACCINE (3 - [facility] Test 14:07:20 Booster for Pfizer series) [code = COVID-19 VACCINE (3 - Booster for Pfizer series)] Future Scheduled 2022-01-29 65+ PNEUMOCOCCAL [facility] Test 14:07:20 VACCINE (4 - PPSV23 or PCV20) [code = 65+ PNEUMOCOCCAL VACCINE (4 - PPSV23 or PCV20)] Future Scheduled 2022-01-29 INFLUENZA VACCINE Method [facility] Test 14:07:20 [code = INFLUENZA VACCINE] Future Scheduled 2022-01-29 SHINGLES VACCINES (1 Met [facility] Test 14:07:20 of 2) [code = SHINGLES VACCINES (1 of 2)] Future Scheduled 2022-01-29 BREAST CANCER [facility] Test 14:07:20 SCREENING [code = BREAST CANCER SCREENING] Future Scheduled 2022-01-29 COLONOSCOPY SCREENING [facility] Test 14:07:20 [code = COLONOSCOPY SCREENING] Future Scheduled 2022-01-29 HEPATITIS B VACCINES Met [facility] Test 14:07:20 (1 of 3 - Risk 3-dose series) [code = HEPATITIS B VACCINES (1 of 3 - Risk 3-dose series)] Future Scheduled 2022-01-29 COVID-19 VACCINE (3 - [facility] Test 14:07:20 Booster for Pfizer series) [code = COVID-19 VACCINE (3 - Booster for Pfizer series)] Future Scheduled 2022-01-29 65+ [facility]CCAL [facility] 14:07:20 VACCINE (4 - PPSV23 or PCV20) [code = 65+ PNEUMOCOCCAL VACCINE (4 - PPSV23 or PCV20)] Future Scheduled 2022-01-29 INFLUENZA VACCINE Method [facility] Test 14:07:20 [code = INFLUENZA VACCINE] Future Scheduled 2022-01-29 SHINGLES VACCINES (1 Met [facility] Test 14:07:20 of 2) [code = SHINGLES VACCINES (1 of 2)] Future Scheduled 2022-01-29 BREAST CANCER [facility] Test 14:07:20 SCREENING [code = BREAST CANCER SCREENING] Future Scheduled 2022-01-29 COLONOSCOPY SCREENING [facility] Test 14:07:20 [code = COLONOSCOPY SCREENING] Future Scheduled 2022-01-29 HEPATITIS B VACCINES Met [facility] Test 14:07:20 (1 of 3 - Risk 3-dose series) [code = HEPATITIS B VACCINES (1 of 3 - Risk 3-dose series)] Future Scheduled 2022-01-29 COVID-19 VACCINE (3 - [facility] Test 14:07:20 Booster for Pfizer series) [code = COVID-19 VACCINE (3 - Booster for Pfizer series)] Future Scheduled 2022-01-29 65+ PNEUMOCOCCAL [facility] Test 14:07:20 VACCINE (4 - PPSV23 or PCV20) [code = 65+ PNEUMOCOCCAL VACCINE (4 - PPSV23 or PCV20)] Future Scheduled 2022-01-29 INFLUENZA VACCINE Method [facility] Test 14:07:20 [code = INFLUENZA VACCINE] Future Scheduled 2022-01-20 SHINGLES VACCINES (1 Met [facility] Test 06:12:34 of 2) [code = SHINGLES VACCINES (1 of 2)] Future Scheduled 2022-01-20 Screening for [facility] Test 06:12:34 malignant neoplasm of cervix (procedure) [code = [id number]] Future Scheduled 2022-01-20 BREAST CANCER [facility] Test 06:12:34 SCREENING [code = BREAST CANCER SCREENING] Future Scheduled 2022-01-20 COLONOSCOPY SCREENING [facility] Test 06:12:34 [code = COLONOSCOPY SCREENING] Future Scheduled 2022-01-20 HEPATITIS B VACCINES Met [facility] Test 06:12:34 (1 of 3 - Risk 3-dose series) [code = HEPATITIS B VACCINES (1 of 3 - Risk 3-dose series)] Future Scheduled 2022-01-20 COVID-19 VACCINE (3 - [facility] Test 06:12:34 Booster for Pfizer series) [code = COVID-19 VACCINE (3 - Booster for Pfizer series)] Future Scheduled 2022-01-20 65+ PNEUMOCOCCAL [facility] Test 06:12:34 VACCINE (4 - PPSV23 or PCV20) [code = 65+ PNEUMOCOCCAL VACCINE (4 - PPSV23 or PCV20)] Future Scheduled 2022-01-20 INFLUENZA VACCINE Method [facility] Test 06:12:34 [code = INFLUENZA VACCINE] Future Scheduled 2022-01-16 SHINGLES VACCINES (1 Met [facility] Test 12:09:25 of 2) [code = SHINGLES VACCINES (1 of 2)] Future Scheduled 2022-01-16 Screening for [facility] Test 12:09:25 malignant neoplasm of cervix (procedure) [code = [id number]] Future Scheduled 2022-01-16 BREAST CANCER [facility] Test 12:09:25 SCREENING [code = BREAST CANCER SCREENING] Future Scheduled 2022-01-16 COLONOSCOPY SCREENING [facility] Test 12:09:25 [code = COLONOSCOPY SCREENING] Future Scheduled 2022-01-16 HEPATITIS B VACCINES Met [facility] Test 12:09:25 (1 of 3 - Risk 3-dose series) [code = HEPATITIS B VACCINES (1 of 3 - Risk 3-dose series)] Future Scheduled 2022-01-16 COVID-19 VACCINE (3 - [facility] Test 12:09:25 Booster for Pfizer series) [code = COVID-19 VACCINE (3 - Booster for Pfizer series)] Future Scheduled 2022-01-16 65+ PNEUMOCOCCAL [facility] Test 12:09:25 VACCINE (4 - PPSV23 or PCV20) [code = 65+ PNEUMOCOCCAL VACCINE (4 - PPSV23 or PCV20)] Future Scheduled 2022-01-16 INFLUENZA VACCINE Method [facility] Test 12:09:25 [code = INFLUENZA VACCINE] Future Scheduled 2022-01-14 SHINGLES VACCINES (1 Met [facility] Test 04:11:46 of 2) [code = SHINGLES VACCINES (1 of 2)] Future Scheduled 2022-01-14 Screening for [facility] Test 04:11:46 malignant neoplasm of cervix (procedure) [code = [id number]] Future Scheduled 2022-01-14 BREAST CANCER [facility] Test 04:11:46 SCREENING [code = BREAST CANCER SCREENING] Future Scheduled 2022-01-14 COLONOSCOPY SCREENING [facility] Test 04:11:46 [code = COLONOSCOPY SCREENING] Future Scheduled 2022-01-14 HEPATITIS B VACCINES Met [facility] Test 04:11:46 (1 of 3 - Risk 3-dose series) [code = HEPATITIS B VACCINES (1 of 3 - Risk 3-dose series)] Future Scheduled 2022-01-14 COVID-19 VACCINE (3 - [facility] Test 04:11:46 Booster for Pfizer series) [code = COVID-19 VACCINE (3 - Booster for Pfizer series)] Future Scheduled 2022-01-14 65+ PNEUMOCOCCAL [facility] Test 04:11:46 VACCINE (4 - PPSV23 or PCV20) [code = 65+ PNEUMOCOCCAL VACCINE (4 - PPSV23 or PCV20)] Future Scheduled 2022-01-14 INFLUENZA VACCINE Method [facility] Test 04:11:46 [code = INFLUENZA VACCINE] Future Scheduled 2021-08-26 Screening for [facility] Test 13:02:23 malignant neoplasm of cervix (procedure) [code = [id number]] Future Scheduled 2021-08-26 BREAST CANCER [facility] Test 13:02:23 SCREENING [code = BREAST CANCER SCREENING] Future Scheduled 2021-08-26 COLONOSCOPY SCREENING [facility] Test 13:02:23 [code = COLONOSCOPY SCREENING] Future Scheduled 2021-08-26 Screening for [facility] Test 13:02:23 malignant neoplasm of lung (procedure) [code = [id number]] Future Scheduled 2021-08-26 SHINGLES VACCINES (#1) [facility] Test 13:02:23 [code = SHINGLES VACCINES (#1)] Future Scheduled 2021-08-26 COVID-19 VACCINE (3 - [facility] Test 13:02:23 Pfizer risk 4-dose series) [code = COVID-19 VACCINE (3 - Pfizer risk 4-dose series)] Future Scheduled 2021-08-26 65+ PNEUMOCOCCAL [facility] Test 13:02:23 VACCINE (4 of 4 - PPSV23) [code = 65+ PNEUMOCOCCAL VACCINE (4 of 4 - PPSV23)] Future Scheduled 2021-08-26 INFLUENZA VACCINE Method [facility] Test 13:02:23 [code = INFLUENZA VACCINE] Encounters Start End Encounter Admission Attending Care Care Encounter Source Date/Time Date/Time Type Type Clinicians Facility Department ID 2022-02-18 Outpatient CHW [facility]W [id number] [place] 14:30:[address] [place] [address] [facility] s 2021-07-14 Outpatient SADIKOVIC, [facility] [id number] [place] 09:33:51 ALIMERI [facility] 2021-06-02 Outpatient HEMATPOUR, [facility] [id number] [place] 13:58:59 [facility] 2021-04-28 Outpatient HEMATPOUR, [facility] [id number] [place] 11:21:22 [facility] 2021-03-20 Emergency [facility] [id number] Univers 16:07:40 ity [facility] 2020-12-12 Outpatient HEMATPOUR, [facility] [id number] [place] 08:16:46 [facility] 2020-10-31 Outpatient HEMATPOUR, [facility] [id number] [place] 09:44:50 [facility] 2020-09-30 Outpatient HEMATPOUR, [facility] [id number] [place] 13:16:03 [facility] 2022-05-20 2022-05-20 Telephone [facility], UNIVERSIT [id number] Univers 00:00:00 00:00:00 [facility] [id number] i ty [id number] [id number] [place] 2022-05-10 2022-05-10 Emergency X BYRON, [facility] ERT [id number] Univers 10:30:00 16:31:00 HOME ity [facility] 2022-05-10 2022-05-10 Emergency [facility], TRAUMA [id number] Univers 10:30:00 16:31:00 Home B CENTER [id number] [id number] [id number] [facility] [address] 2022-05-10 2022-05-10 Telephone [facility], UNIVERSIT [id number] Univers 00:00:00 00:00:00 [facility] [id number] i [id number] [address] 2022-05-08 2022-05-08 Emergency [facility] [id number] Univers 16:18:00 18:42:00 THERESA charlie [facility] 2022-05-08 2022-05-08 [facility] [id number] Univers 16:18:00 18:42:00 Theresa BULLOCK [id number] ity [facility] [id number] [facility] [id number] [address] 2022-05-07 2022-05-07 Telephone [facility] [id number] Univers 00:00:00 00:00:00 [facility] [id number] i [id number] [address] 2022-05-06 2022-05-06 Emergency [facility] [id number] Univers 14:13:00 18:19:00 ANETTE barbosa [facility] – [place] 2022-05-06 2022-05-06 Emergency [facility] 1.2.144.596 [id number] Univers 14:13:00 18:19:00 Anette BULLOCK 350.1.13.10 ity [facility] 4.2.7.2.686 [facility] [id number] [address] 2022-05-06 2022-05-06 Telephone [facility] 1.2.840.114 [id number] Univers 00:00:00 00:00:00 [facility] 350.1.13.10 i ty of [place] [id number] [address] 2022-04-22 2022-04-22 Emergency [facility] [id number] Univers 13:55:00 17:00:00 PUALETTE [facility] 2022-04-22 2022-04-22 Emergency [facility] 1.2.701.461 [id number] [id number] Univers 13:55:00 17:00:00 Paulette BULLOCK 350.1.13.10 i ty of [place] [id number] [facility] [address] [place] 2022-04-07 2022-04-07 Outpatient R [facility], [facility] [id number] Univers 20:40:00 20:40:00 ATTENDING ity [facility] [place] 2022-04-07 2022-04-07 Telephone Beltran, 1.2.840.7 [id number] [id number] Univers 00:00:00 00:00:00 Robbi Hairston 69220.1.1 i ty of 3.104.2.7 [place] .3.357650 Medica l .8 [place] 2022-03-05 2022-03-05 P[employer] Operator Santiago Cardenas 1.2.840.1 [id number] Univers 13:45:00 14:00:[address] [facility] 38063.1.1 ity of 3.104.2.7 [place] .3.660272 Medica l .8 [place] 2022-03-05 2022-03-05 Office JOSÉ ANTONIO Cardenas 1.2.042.792 2643 [id number] Univers 13:00:00 13:30:00 Visit Santiago [facility] 350.1.13.[address] [facility] 4.2.7.2.686 [facility] [id number] [place] 730199 [place] 2022-03-05 2022-03-05 Outpatient R [facility] [id number] Univers 13:00:00 13:00:00 SANTIAGO barbosa [facility] [place] 2022-02-26 2022-02-26 Outpatient R [facility] [id number] Univers 08:30:00 08:30:00 SANTIAGO barbosa [facility] [place] 2022-02-26 2022-02-26 Outpatient R [facility] [id number] Univers 08:30:00 08:30:00 SANTIAGO [facility] 2022-02-17 2022-02-17 Transition Stevo, 1.2.840.7 [id number] Univers 00:00:00 00:00:00 of Care Isaias Arredondo 06617.1.1 it y of 3.104.2.7 [place] .3.934267 Medica l .8 Branch 2022-02-10 2022-02-16 Inpatient X [facility] [id number] Univers 22:59:00 19:27:00 PETER ity of [facility] 2022-02-10 2022-02-16 [facility] Reilly Means 1.2.840.1 [id number] Univers 22:59:00 19:27:00 Encounter Ofe Shields 87295.1.1 ity of [place] 3.[place].2.7 [place] .3.881150 Medica l .8 Branch 2022-02-11 2022-02-11 Telephone East, 1.2.840.9 [id number] [id number] Univers 00:00:00 00:00:00 Santiago 62787.1.1 ity of 3.104.2.7 [place] .3.032654 Medica l .8 Branch 2022-02-10 2022-02-10 Travel 1.2.840.1 1.2.878.151 2979 [id number] Univers 00:00:00 00:00:00 70083.1.1 350.1.13.10 ity of 3.104.2.7 4.[place]7.3.698 [place] .3.297464 084.8 Medica l .8 [place] 2022-01-30 2022-01-30 Telephone East, 1.2.840.3 [id number] [id number] Univers 00:00:00 00:00:00 Santiago 21971.1.1 ity of 3.104.2.7 [place] .3.048352 Medica l .8 [place] 2022-01-06 2022-01-06 Orders Doctor FERMIN 1.2.840.114 [id number] Univers 00:00:00 00:00:00 Only Unassigned, JACKELINE 350.1.13.10 ity of [place] [facility] 4.2.7.2.686 Yomi as [phone] [facility] porfirio [address] [place] 2021-12-25 2021-12-25 Orders Doctor CHRISTENSEN 1.2.840.114 [id number] Univers 00:00:00 00:00:00 Only Unassigned, JACKELINE 350.1.13.10 ity of [place] [facility] 4.2.7.2.686 Yomi as [phone] [facility] 009 Branch 2021-12-12 2021-12-13 Emergency X Bill COLES [facility] ERT [id number] Univers 23:53:00 01:52:[address] [facility] 2021-12-12 2021-12-13 Emergency Bill Coles [facility] 1.2.840.114 [id number] Univers 23:53:00 01:52:00 Kiersten BULLOCK 350.1.13.10 i ty [place] [id number] [facility] 084 Branch 2021-11-20 2021-11-20 Pocket Fl[employer] Cre[employer] Operator [facility]ERS[facility] 1.2.840.114 9 [id number] Univers 09:45:00 10:00:00 Visit [facility] 350.1.13.[address] [facility] 4.2.[place].2.[place] [phone] [facility] 316 Branch 2021-11-20 2021-11-20 Office [facility] 1.2.094.425 2711 9084 Univers 08:30:00 09:00:00 Visit [facility] 350.1.13.[address] [facility] 4.2.[place].2.[place] 586.9085219 [facility] 089 Branch 2021-11-20 2021-11-20 Outpatient R [facility] [id number] Univers 08:30:00 08:30:00 [facility] 2021-11-20 2021-11-20 Outpatient R [facility] [id number] Univers 08:30:00 08:30:00 [facility] 2021-11-20 2021-11-20 Outpatient R [facility] [id number] Univers 08:30:00 08:30:00 [facility] 2021-11-20 2021-11-20 Outpatient R [facility] [id number] Univers 08:30:00 08:30:00 [facility] 2021-10-24 2021-10-24 Emergency X ESVIN [facility] ERT [id number] Univers 16:27:00 22:26:00 CHARITY barbosa [facility] [place] 2021-10-24 2021-10-24 Emergency X ESVIN [facility] ERT [id number] Univers 16:27:00 22:26:00 CHARITY barbosa [facility] [place] 2021-10-24 2021-10-24 Emergency Reilly Means [facility] 1.2.840. 114 [id number] Univers 16:27:00 22:26:00 Charity Mcallister 350.1.13.10 ity of [facility] 4.2.7.2.686 [facility] [id number] [address] 2021-10-23 2021-10-24 Emergency [facility] [id number] Univers 20:22:00 02:57:00 CHARITY barbosa [facility] [place] 2021-10-23 2021-10-24 Emergency [facility] 1.2.552.263 [id number] Univers 20:22:00 02:57:00 Charity BULLOCK 350.1.13.10 ity [facility] 4.2.7.2.686 [facility] [id number] [address] 2021-09-07 2021-09-07 Outpatient R SELF, [facility] [id number] Univers 08:00:00 08:00:00 GADIEL vogel clark [facility] 2021-09-07 2021-09-07 Outpatient R SELF, [facility] [id number] Univers 08:00:00 08:00:[address] [facility] 2021-08-21 2021-08-21 [facility] [id number] Univers 10:45:00 10:45:00 ASNTIAGO familia [facility] [place] 2021-08-21 2021-08-21 P[employer] Machine Operator Santiago Cardenas 1.2.840.1 [id number] Univers 10:45:00 10:45:[address] [facility] 63829.1.1 ity of 3.104.2.7 [place] .3.241221 Medica l .8 Branch 2021-08-21 2021-08-21 Office East, 1.2.840.6 [id number] Univers 08:30:00 09:00:00 Visit Santiago 52815.1.1 ity of 3.104.2.7 [place] .3.503913 Medica l .8 Branch 2021-08-21 2021-08-21 Office East, UNIVERSIT 1.2.178.385 3501 [id number] Univers 08:30:00 09:00:00 Visit Santiago [facility] 350.1.13.10 i ty of CLINICS 4.2.7.2.686 Richi bach [phone] [facility] porfirio [address] [place] 2021-08-21 2021-08-21 Outpatient R [facility] [id number] Univers 08:30:00 08:30:00 [facility] 2021-08-21 2021-08-21 Travel 1.2.840.1 1.2.454.436 [id number] [id number] Univers 00:00:00 00:00:00 26323.1.1 350.1.13.10 ity of 3.104.2.7 4.[place].7.3.698 [place] .3.444209 084.8 Medica l .8 [place] 2021-08-14 2021-08-14 Telephone East, 1.2.840.5 [id number] Univers 00:00:00 00:00:00 Santiago 78459.1.1 ity of 3.104.2.7 [place] .3.954395 Medica l .8 Branch 2021-08-13 2021-08-13 Telephone East, 1.2.840.1 [id number] Univers 00:00:00 00:00:00 Santiago 65329.1.1 ity of 3.104.2.7 [place] .3.911259 Medica l .8 [place] 2021-08-11 2021-08-11 Outpatient R [facility] [id number] Univers 08:00:00 08:00:00 [facility] 2021-08-05 2021-08-05 Inpatient EDUARDO LealCL OUTD [id number] [facility] 05:24:00 05:24:00 Mike 31 [facility] 2021-07-20 2021-07-20 Outpatient R [facility] [id number] Univers 10:00:00 10:00:00 [facility] 2021-07-14 2021-07-14 Office Pankaj, UTP 6400 1.2.840.114 13 [id number] [place] 08:45:00 09:34:[address] 350.1.13.58 Health 9.2.7.2.686 [id number] 1 2021-07-09 2021-07-09 Telephone [place], UTP 6400 1.2.840.114 [id number] [place] 00:00:00 00:00:[address] 350.1.13.58 Health 9.2.7.2.686 [id number] 1 2021-07-09 2021-07-09 Telephone [place], UTP 6400 1.2.840.114 [id number] [place] 00:00:00 00:00:[address] 350.1.13.58 Health 9.2.7.2.686 [id number] 1 2021-07-03 2021-07-03 Outpatient R [facility] [id number] Univers 08:00:00 08:00:00 [facility] 2021-06-17 2021-06-17 Inpatient EDUARDO LealCL INTE.02 [id number] [facility] 10:56:00 14:36:00 Mike 47 [facility] 2021-06-15 2021-06-15 Outpatient R SELF, [facility] [id number] Univers 10:15:00 11:07:[address] [facility] 2021-06-15 2021-06-15 Outpatient R SELF, [facility] [id number] Univers 10:15:00 10:15:[address] [facility] 2021-06-15 2021-06-15 Outpatient R SELF, [facility] [id number] Univers 10:15:00 10:15:00 GADIEL maciely o f [facility] 2021-06-15 2021-06-15 Orders Doctor 1.2.840.0 [id number] Univers 00:00:00 00:00:00 Only Unassigned, 51448.1.1 ity of [place] 3.104.2.7 [place] .3.210764 Medica l .8 [place] 2021-06-15 2021-06-15 Travel 1.2.840.1 1.2.988.595 3947 7719 Univers 00:00:00 00:00:00 54790.1.1 350.1.13.10 ity of 3.104.2.7 4.2.7.3.698 [place] .3.214861 084.8 Medica l .8 [place] 2021-06-11 2021-06-11 Refill [facility] 1.2.053.588 [id number] [id number] Univers 00:00:00 00:00:00 [facility] 350.1.13.10 i ty of [place] [id number] [address] 2021-06-11 2021-06-11 Refill [place], 1.2.840.7 [id number] Univers 00:00:00 00:00:00 Santiago 70527.1.1 ity of 3.104.2.7 [place] .3.172500 Medica l .8 [place] 2021-06-05 2021-06-05 Outpatient R EAST, [facility] [id number] Univers 09:00:00 09:00:00 SANTIAGO ity of [facility] 2021-06-02 2021-06-02 Telephone [facility] 1.2.840.114 [id number] Univers 00:00:00 00:00:00 [facility] 350.1.13.10 i ty of [place] [id number] [address] 2021-06-02 2021-06-02 Telephone East, 1.2.840.4 [id number] [id number] Univers 00:00:00 00:00:00 Santiago 19757.1.1 ity of 3.104.2.7 [place] .3.611250 Medica l .8 Branch 2021-05-29 2021-05-29 Telephone East, 1.2.840.2 [id number] [id number] Univers 00:00:00 00:00:00 Santiago 33121.1.1 ity of 3.104.2.7 [place] .3.425385 Medica l .8 Branch 2021-05-29 2021-05-29 Telephone East, 1.2.840.0 [id number] [id number] Univers 00:00:00 00:00:00 Santiago 61857.1.1 ity of 3.104.2.7 [place] .3.964182 Medica l .8 [place] 2021-05-25 2021-05-25 Outpatient R RODO, [facility] [id number] Univers 08:00:00 08:00:00 GADIEL barbosa o f [facility] 2021-04-29 2021-04-29 [facility] [id number] Univers 08:00:00 08:00:00 NIKOLAI barbosa [facility] [place] 2021-04-28 2021-04-28 Telephone [place], UTP 6400 1.2.840.114 [id number] [place] 00:00:00 00:00:[address] 350.1.13.58 Health 9.2.7.2.686 [id number] 1 2021-04-28 2021-04-28 Telephone Jailyn, 1.2.840.9 [id number] 21 [id number] Methodi 00:00:00 00:00:[address] 3.430.2.7 Hospit a .3.811108 l .8 2021-03-31 2021-03-31 Orders Carol Ann, 1.2.840.1 [id number] Methodi 00:00:00 00:00:00 Only Sarai Lieberman 96539.1.1 979 s t 3.430.2.7 Hospit a .3.602912 l .8 2021-03-30 2021-03-30 Outpatient R RDOO, [facility] [id number] Univers 08:45:00 08:45:00 GADIEL babrosa o f [facility] 2021-03-24 2021-03-24 Telephone Jailyn, 1.2.840.1 [id number] 21 [id number] Methodi 00:00:00 00:00:[address] 3.430.2.7 Hospit a .3.685495 l .8 2021-02-13 2021-02-13 Telephone Ronald, 1.2.840.8 [id number] 876 [id number] Univers 00:00:00 00:00:00 Santiago 84630.1.1 ity of 3.104.2.7 [place] .3.978266 Medica l .8 [place] 2021-01-28 2021-01-28 [facility] [id number] Univers 08:45:00 09:37:00 NIKOLAI barbosa of [facility] 2021-01-28 2021-01-28 Travel 1.2.840.1 1.2.904.616 4083 [id number] Univers 00:00:00 00:00:00 37580.1.1 350.1.13.10 ity of 3.104.2.7 4.2.7.3.698 [place] .3.588991 084.8 Medica l .8 [place] 2021-01-19 2021-01-19 Telephone Pelletier, 1.2.840.1 [id number] 2100 [id number] Methodi 00:00:00 00:00:[address] 3.430.2.7 Hospit a .3.843703 l .8 2021-01-04 2021-01-04 Letter Shelia, 1.2.840.1 [id number] 696 Univers 00:00:00 00:00:00 (Out) Dagoberto Peterson 20998.1.1 ity of 3.104.2.7 [place] .3.757504 Medica l .8 Branch 2021-01-04 2021-01-04 Dmitry Bass, 1.2.840.4 [id number] 07601 696 Univers 00:00:00 00:00:00 (Out) Dagoberto H 58617.1.1 ity of 3.104.2.7 [place] .3.115917 Medica l .8 Branch 2021-01-03 2021-01-03 Dmitry Bass, 1.2.840.9 [id number] 790 Univers 00:00:00 00:00:00 (Out) Dagoberto H 32014.1.1 ity of 3.104.2.7 [place] .3.161663 Medica l .8 Branch 2021-01-03 2021-01-03 Dmitry Bass, 1.2.840.4 [id number] 790 Univers 00:00:00 00:00:00 (Out) Dagoberto H 82757.1.1 ity of 3.104.2.7 [place] .3.255917 Medica l .8 [place] 2021-01-02 2021-01-02 Outpatient R [facility] [id number] Univers 13:40:00 13:40:[address] [facility] 2021-01-02 2021-01-02 Laboratory Cuba Franks 1.2.840.5 [id number] Univers 12:14:13 12:57:34 Only Lab, [facility] [place] 57323.1.1 ity of 3.104.2.7 [place] .3.211428 Medica l .8 [place] 2021-01-02 2021-01-02 Laboratory Cuba Franks 1.2.840.7 [id number] [id number] Univers 12:14:13 12:57:34 Only Lab, Adc Fam [place]ob I 17561.1.1 ity of 3.104.2.7 [place] .3.095010 Medica l .8 Branch 2021-01-02 2021-01-02 Travel 1.2.840.1 1.2.537.903 6526 2306 Univers 00:00:00 00:00:00 34738.1.1 350.1.13.10 ity of 3.104.2.7 4.2.7.3.698 [place] .3.380888 084.8 Medica l .8 Branch 2021-01-02 2021-01-02 Letter Doctor 1.2.840.5 [id number] 948 Univers 00:00:00 00:00:00 (Out) Unassigned, 96284.1.1 ity of [place] 3.104.2.7 [place] .3.728221 Medica l .8 Branch 2021-01-02 2021-01-02 Letter Doctor 1.2.840.1 [id number] 87561 946 Univers 00:00:00 00:00:00 (Out) Unassigned, 68250.1.1 ity of [place] 3.104.2.7 [place] .3.731663 Medica l .8 Branch 2021-01-02 2021-01-02 Travel 1.2.840.1 1.2.614.248 0073 2306 Univers 00:00:00 00:00:00 52183.1.1 350.1.13.10 ity of 3.104.2.7 4.2.7.3.698 [place] .3.040535 084.8 Medica l .8 Branch 2021-01-02 2021-01-02 Letter Doctor 1.2.840.6 [id number] 948 Univers 00:00:00 00:00:00 (Out) Unassigned, 08948.1.1 ity of [place] 3.104.2.7 [place] .3.629601 Medica l .8 Branch 2021-01-02 2021-01-02 Letter Doctor 1.2.840.3 [id number] 946 Univers 00:00:00 00:00:00 (Out) Unassigned, 25732.1.1 ity of [place] 3.104.2.7 [place] .3.329998 Medica l .8 Branch 2020-12-22 2020-12-22 Telephone Devin 1.2.840.5 [id number] 862 [id number] Univers 00:00:00 00:00:00 Rossandynda R 68660.1.1 i ty of 3.104.2.7 [place] .3.861153 Medica l .8 [place] 2020-12-22 2020-12-22 Telephone Devin, 1.2.840.2 [id number] 862 70367 Univers 00:00:00 00:00:00 Roshunda R 57942.1.1 i ty of 3.104.2.7 [place] .3.695055 Medica l .8 [place] 2020-12-12 2020-12-12 Office [place], UTP 6400 1.2.840.114 12 [id number] [place] 07:42:02 08:18:[address] 350.1.13.58 Health 9.2.7.2.686 [id number] 1 2020-12-12 2020-12-12 Office [place], UTP 6400 1.2.840.114 12 [id number] 07:42:02 08:18:[address] 350.1.13.58 9.2.7.2.686 [id number] 1 2020-12-09 2020-12-09 Telephone Carol Ann, 1.2.840.1 [id number] Methodi 00:00:00 00:00:00 Sarai M. 65355.1.1 316 s t 3.430.2.7 Hospit a .3.377832 l .8 2020-12-08 2020-12-08 [facility], 1.2.840.1 [id number] 2100 993158 Methodi 12:35:54 23:59:00 Encounter Ray 65469.1.[address] 3.430.2.7 Hospit a .3.302361 l .8 2020-12-08 2020-12-08 [facility], 1.2.840.1 [id number] 89334 09416 Methodi 17:25:00 17:30:[address] 3.430.2.7 Hospit a .3.912781 l .8 2020-12-08 2020-12-08 Office Jailyn, 1.2.840.1 [id number] 19228 14722 Methodi 10:30:00 11:39:56 Visit Ray [address]247.1.[address] 3.430.2.7 Hospit a .3.561152 l .8 2020-12-08 2020-12-08 Travel 1.2.840.1 1.2.376.780 8867 243865 Methodi 00:00:00 00:00:[address] 3.430.2.7 0.2.7.3.698 Ho spita .3.083493 084.8 l .8 2020-12-02 2020-12-02 P[employer] Operator Santiago Cardenas 1.2.840.1 [id number] 316 [id number] Univers 10:20:06 10:36:[address] [facility] 13597.1.1 ity of 3.104.2.7 [place] .3.742382 Medica l .8 [place] 2020-12-02 2020-12-02 Pocket Fl[employer] Creasing Machine Operator Santiago Cardenas 1.2.840.1 7233428 316 [id number] Univers 10:20:06 10:36:[address] [facility] 03684.1.1 ity of 3.104.2.7 [place] .3.332824 Medica l .8 [place] 2020-12-02 2020-12-02 P[employer] Fl[employer] Cre[employer] Machine Operator [facility] UNIVERSIT 1.2.840.114 8 [id number] 10:20:06 10:36:19 Visit [facility] 350.1.13.10 CLINICS 4.2.7.2.686 258.2601003 316 2020-12-02 2020-12-02 Office Qi Cardenas2.840.3 [id number] 38593 528 Univers 08:31:37 09:01:37 Visit Santiago 90883.1.1 ity of 3.104.2.7 [place] .3.995222 Medica l .8 [place] 2020-12-02 2020-12-02 Outpatient R RONALD [facility] [id number] Univers 09:00:00 09:00:00 SANTIAGO ity of [facility] 2020-11-25 2020-11-25 Office Devin, 1.2.840.5 [id number] 07181 865 Univers 11:06:30 11:58:14 Visit Robbi Hairston 74521.1.1 i ty of 3.104.2.7 [place] .3.996613 Medica l .8 [place] 2020-11-25 2020-11-25 Office Devin, 1.2.840.0 [id number] 87172 865 Univers 11:06:30 11:58:14 Visit Robbi Hairston 75360.1.1 i ty of 3.104.2.7 [place] .3.180277 Medica l .8 [place] 2020-11-25 2020-11-25 Office Devin, [facility] 1.2.840.114 [id number] 11:06:30 11:58:14 Visit Robbi Marika [facility]CKLE [employer] MACHINE 350.1.13.10 [facility] 4.2.7.2.686 MATERNAL [id number] & CHILD [address] [place] [address] 2020-11-25 2020-11-25 Outpatient R [facility] [id number] Univers 11:00:00 11:00:[address] [facility] 2020-11-25 2020-11-25 Telephone Devin, 1.2.840.7 [id number] 855 [id number] Univers 00:00:00 00:00:00 Robbi Hairston 90177.1.1 i ty of 3.104.2.7 [place] .3.534380 Medica l .8 [place] 2020-11-25 2020-11-25 Refill [facility], 1.2.840.7 [id number] 77660 592 Univers 00:00:00 00:00:00 Santiago 75659.1.1 ity of 3.104.2.7 [place] .3.813103 Medica l .8 [place] 2020-11-25 2020-11-25 Travel 1.2.840.1 1.2.455.704 1064 0247 Univers 00:00:00 00:00:00 15676.1.1 350.1.13.10 ity of 3.104.2.7 4.2.7.3.698 [place] .3.071741 084.8 Medica l .8 Branch 2020-11-25 2020-11-25 Orders Doctor 1.2.840.4 [id number] 79069 064 Univers 00:00:00 00:00:00 Only Unassigned, 86207.1.1 ity of [place] 3.104.2.7 [place] .3.969753 Medica l .8 Branch 2020-11-25 2020-11-25 Telephone Beltran, 1.2.840.6 [id number] 855 67952 Univers 00:00:00 00:00:00 Rossandyndaleshia R 96146.1.1 i ty of 3.104.2.7 [place] .3.556126 Medica l .8 Branch 2020-11-25 2020-11-25 Refill East, 1.2.840.4 [id number] 14949 592 Univers 00:00:00 00:00:00 Santiago 25843.1.1 ity of 3.104.2.7 [place] .3.304392 Medica l .8 Branch 2020-11-25 2020-11-25 Travel 1.2.840.1 1.2.901.677 1399 0247 Univers 00:00:00 00:00:00 99282.1.1 350.1.13.10 ity of 3.104.2.7 4[place].3.698 [place] .3.079711 084.8 Medica l .8 Branch 2020-11-25 2020-11-25 Orders Doctor 1.2.840.0 [id number] 064 Univers 00:00:00 00:00:00 Only Unassigned, 53714.1.1 ity of [place] 3.104.2.7 [place] .3.779576 Medica l .8 Branch 2020-11-25 2020-11-25 Refill [facility] 1.2.753.857 8031 4592 00:00:00 00:00:00 [facility] 350.1.13.10 CLINICS 4.2.7.2.686 [id number] 089 2020-11-25 2020-11-25 [facility] 1.2.984.176 5527 0821 00:00:00 00:00:00 Robbi Hairston [facility] 350.1.13.10 [facility] 4.2.7.2.686 MATERNAL [id number] & CHILD [address] [place] [address] 2020-11-14 2020-11-14 Abstract Rodas, 1.2.840.1 [id number] 44187 Methodi 00:00:00 00:00:[address] 3.430.2.7 Hospit a .3.394864 l .8 2020-11-14 2020-11-14 Telephone Rodas 1.2.840.1 [id number] 2100 [id number] Methodi 00:00:00 00:00:[address] 3.430.2.7 Hospit a .3.463502 l .8 2020-11-12 2020-11-12 Outpatient [facility] [id number] Univers 08:30[facility]00 [facility] 2020-11-07 2020-11-07 Telephone Agustina Ortiz 6400 1.2.840.11 4 [id number] [place] 00:00:00 00:00:[address] 350.1.13.58 Health 9.2.7.2.686 [id number] 1 2020-11-07 2020-11-07 Telephone KIMBERLEY Ortiz 6400 1.2.840.114 124 [id number] 00:00:00 00:00:[address] 350.1.13.58 9.2.7.2.686 [id number] 1 2020-10-31 2020-10-31 Office KIMBERLEY De Souza 6400 1.2.840.114 12 [id number] [place] 07:54:00 09:45:[address] 350.1.13.58 Health 9.2.7.2.686 [id number] 1 2020-10-30 2020-10-30 Abstract Rody Maguire UTP 6400 1.2.840.1 14 [id number] [place] 00:00:00 00:00:[address] 350.1.13.58 Health 9.2.7.2.686 [id number] 1 2020-10-29 2020-10-29 Refill [place], 1.2.840.4 [id number] 81678 400 Univers 00:00:00 00:00:00 [place] 46208.1.1 ity of 3.104.2.7 [place] .3.954627 Medica l .8 [place] 2020-10-29 2020-10-29 Refill [place], 1.2.840.8 [id number] 400 Univers 00:00:00 00:00:00 [place] 11807.1.1 ity of 3.104.2.7 [place] .3.198333 Medica l .8 [place] 2020-10-27 2020-10-27 Telephone Cadea, 1.2.840.8 [id number] Methodi 00:00:00 00:00:[address] 3.430.2.7 Hospit a .3.252964 l .8 2020-10-24 2020-10-24 Telephone Rodas, 1.2.840.1 [id number] 2100 805408 Methodi 00:00:00 00:00:[address] 3.430.2.7 Hospit a .3.509469 l .8 2020-10-22 2020-10-22 Outpatient R SELF, [facility] [id number] Univers 13:00:00 13:00:[address] [facility] 2020-10-22 2020-10-22 Travel 1.2.840.1 1.2.847.773 3948 3839 Univers 00:00:00 00:00:00 84580.1.1 350.1.13.10 ity of 3.104.2.7 4[place].3.698 [place] .3.642363 084.8 Medica l .8 Branch 2020-10-22 2020-10-22 Travel 1.2.840.1 1.2.389.142 5482 3839 [facility] 00:00:00 00:00:00 41668.1.1 350.1.13.10 ity of 3.104.2.7 4[place].3.698 [place] .3.603497 084.8 Medica l .8 Branch 2020-10-13 2020-10-13 Outpatient R SELF, [facility] [id number] Univers 08:45:00 08:45:00 GADIEL barbosa o f [facility] 2020-10-06 2020-10-12 [facility] 1.2.840.1 [id number] Methodi 15:30:00 00:08:46 ne Ray 40058.1.[address] 3.430.2.7 Hospit a .3.518904 l .8 2020-09-30 2020-09-30 [facility] 1.2.840.5 [id number] Methodi 00:00:00 00:00:[address] 3.430.2.7 Hospit a .3.401741 l .8 2020-09-21 2020-09-21 Travel 1.2.840.1 1.2.808.484 6144 [id number] Methodi 00:00:00 00:00:[address] 3.430.2.7 0.2.7.3.698 [facility] .3.044942 084.8 l .8 2020-09-06 2020-09-06 [facility] 1.2.840.1 [id number] 99433 Methodi 17:42:30 23:59:00 Encounter 80129.1.1 [address] 3.430.2.7 Hospit a .3.423199 l .8 2020-09-06 2020-09-06 [facility], 1.2.840.1 [id number] Methodi 16:50:00 17:41:00 Encounter Ray [address]259.1.[address] 3.430.2.7 Hospit a .3.059100 l .8 2020-09-05 2020-09-05 [facility], 1.2.840.1 [id number] Methodi 09:17:00 19:45:00 Encounter Ray [address]53.1.[address] 3.430.2.7 Hospit a .3.825144 l .8 2020-09-05 2020-09-05 Surgery [facility], 1.2.840.1 [id number] Methodi 11:30:00 13:15:[address] 3.430.2.7 Hospit a .3.130324 l .8 2020-09-05 2020-09-05 Anesthesia Remigio, 1.2.840.1 [id number] [id number] Methodi 11:27:00 12:20:00 Event Johnathanthi 36448.1.1 243 s t V. 3.430.2.7 Hospit a .3.917244 l .8 2020-09-05 2020-09-05 Travel 1.2.840.1 1.2.098.756 7600 [id number] Methodi 00:00:00 00:00:[address] 3.430.2.7 0.2.7.3.698 Ho spita .3.839926 084.8 l .8 2020-09-04 2020-09-04 [facility] 1.2.840.1 [id number] Methodi 00:00:00 00:00:00 Sarai M. 93687.1.1 762 s t 3.430.2.7 Hospit a .3.136630 l .8 2020-09-02 2020-09-02 Telephone [place], 1.2.840.6 [id number] Methodi 00:00:00 00:00:00 Sarai M. 20770.1.1 344 s t 3.430.2.7 Hospit a .3.055799 l .8 2020-08-29 2020-08-30 Bedded [facility]ly [facility] [id number] [facility] 10:20:00 14:10:00 Outpatient r [place] 00 l [facility] 2020-08-29 2020-08-30 Outpatient HEMATP[facility], [facility] CAR 7500 [facility] 05:20:00 09:10:00 [place] 2020-08-06 2020-08-06 Office East, 1.2.840.8 [id number] Univers 08:03:23 09:17:49 Visit Santiago 23964.1.1 ity of 3.104.2.7 [place] .3.966752 Medica l .8 [place] 2020-08-06 2020-08-06 Outpatient R [facility] [id number] Univers 08:30:00 08:30:00 SANTIAGO barbosa [facility] 2020-07-14 2020-07-14 Outpatient R [facility] [id number] Univers 09:30:00 09:30:[address] [facility] 2020-07-14 2020-07-14 Travel 1.2.840.1 1.2.465.594 [id number] Univers 00:00:00 00:00:00 52265.1.1 350.1.13.10 ity of 3.104.2.7 4[place].3.698 [place] .3.8124[place] 084.8 Medica l .8 [place] 2020-07-14 2020-07-14 Orders Doctor 1.2.840.6 [id number] Univers 00:00:00 00:00:00 Only Unassigned, 35781.1.1 ity of [place] 3.104.2.7 [place] .3.904996 Medica l .8 [place] 2020-06-16 2020-06-16 [facility] [id number] Univers 08:00:00 08:00:00 GADIEL vogel f [facility] 2020-06-06 2020-06-06 Telephone East, 1.2.840.5 [id number] Univers 00:00:00 00:00:00 Santiago 73760.1.1 ity of 3.104.2.7 [place] .3.318503 Medica l .8 Branch 2020-06-04 2020-06-04 [employer] Operator Santiago Cardenas 1.2.840.1 [id number] Univers 09:31:58 09:40:[address] [facility] 31454.1.1 ity of 3.104.2.7 [place] .3.577674 Medica l .8 Branch 2020-06-04 2020-06-04 Office EastFRANCO 1.2.836.625 5819 [id number] Univers 08:13:41 09:28:25 Visit Santiago [facility] 350.1.13.10 i ty of CLINICS 4.2.7.2.686 [place] 591.8179342 [facility] 089 Branch 2020-06-04 2020-06-04 Outpatient R [facility] [id number] Univers 08:30:00 08:30:00 SANTIAGO ity of [facility] 2020-06-04 2020-06-04 Orders Doctor 1.2.840.6 [id number] Univers 00:00:00 00:00:00 Only Unassigned, 34273.1.1 ity of [place] 3.104.2.7 [place] .3.045212 Medica l .8 Branch 2020-05-19 2020-05-19 Telephone East, 1.2.840.3 [id number] Univers 00:00:00 00:00:00 Santiago 89913.1.1 ity of 3.104.2.7 [place] .3.228609 Medica l .8 Branch 2020-04-24 2020-04-24 Telephone East, 1.2.840.9 [id number] Univers 00:00:00 00:00:00 Santiago 58230.1.1 ity of 3.104.2.7 [place] .3.747534 Medica l .8 Branch 2020-04-14 2020-04-14 Outpatient R [facility] [id number] Univers 09:00:00 09:00:00 SANTIAGO ity [facility] 2020-04-14 2020-04-14 Telephone East, 1.2.840.7 [id number] Univers 00:00:00 00:00:00 Santiago 53436.1.1 ity of 3.104.2.7 [place] .3.173054 Medica l .8 [place] 2020-03-31 2020-03-31 Outpatient R EAST, [facility] [id number] Univers 08:30:00 08:30:00 SANTIAGO ity [facility] 2020-03-03 2020-03-03 Outpatient R SELF, [facility] [id number] Univers 08:00:00 08:00:[address] [facility] 2020-03-03 2020-03-03 Outpatient R SELF, [facility] [id number] Univers 08:00:00 08:00:[address] [facility] 2020-03-03 2020-03-03 Travel 1.2.840.1 1.2.684.417 [id number] [id number] Univers 00:00:00 00:00:00 67687.1.1 350.1.13.10 ity of 3.104.2.7 4[place]7.3.698 [place] .3.225148 084.8 Medica l .8 [place] 2020-02-06 2020-02-06 Telephone East, 1.2.840.4 [id number] [id number] Univers 00:00:00 00:00:00 [place] 52350.1.1 ity of 3.104.2.7 [place] .3.283535 Medica l .8 Branch 2020-01-26 2020-01-26 Emergency Caridad, 1.2.840.8 [id number] [id number] Univers 10:03:00 13:05:00 Cynise 81330.1.1 ity of 3.104.2.7 [place] .3.197327 Medica l .8 Branch 2020-01-26 2020-01-26 Travel 1.2.840.1 1.2.987.853 [id number] 0120 Univers 00:00:00 00:00:00 12832.1.1 350.1.13.10 ity of 3.104.2.7 4[place]7.3.698 [place] .3.202220 084.8 Medica l .8 [place] 2020-01-25 2020-01-25 Outpatient R EAST, [facility] [id number] Univers 08:30:00 08:30:00 SANTIAGO ity [facility] 2020-01-25 2020-01-25 Telemedici [place], 1.2.840.5 [id number] Univers 07:36:49 08:06:49 ne Visit Santiago 79372.1.1 ity of 3.104.2.7 [place] .3.379742 Medica l .8 [place] 2020-01-16 2020-01-16 Outpatient R EAST, [facility] [id number] Univers 08:00:00 08:00:00 SANTIAGO ity [facility] 2020-01-16 2020-01-16 Telephone East, 1.2.840.7 [id number] Univers 00:00:00 00:00:00 Santiago 24656.1.1 ity of 3.104.2.7 [place] .3.285581 Medica l .8 [place] 2020-01-14 2020-01-14 Outpatient R SELF, [facility] [id number] Univers 08:00:00 08:00:[address] [facility] 2019-12-31 2019-12-31 Outpatient R SELF, [facility] [id number] Univers 08:45:00 08:45:00 GADIEL barbosa o f [facility] 2019-10-17 2019-10-17 Outpatient R EAST, [facility] [id number] Univers 08:30:00 08:30:00 SANTIAGO ity [facility] 2019-10-12 2019-10-12 Outpatient R EAST, [facility] [id number] Univers 13:00:00 13:00:00 SANTIAGO ity [facility] 2019-10-12 2019-10-12 Telemedici [place], 1.2.840.2 [id number] Univers 07:38:30 08:08:30 ne Visit Santiago 39911.1.1 ity of 3.104.2.7 [place] .3.326719 Medica l .8 [place] 2019-10-08 2019-10-08 Outpatient R SELF, [facility] [id number] Univers 10:15:00 10:15:00 GADIEL ity o f [facility] 2019-10-03 2019-10-03 Jorge Hagen, 1.2.840.9 [id number] Univers 00:00:00 00:00:00 Management Michael Corbin 84205.1.1 i ty of 3.104.2.7 [place] .3.842091 Medica l .8 [place] 2019-09-27 2019-09-27 Telephone East, 1.2.840.2 [id number] Univers 00:00:00 00:00:00 Santiago 36514.1.1 ity of 3.104.2.7 [place] .3.131217 Medica l .8 [place] 2019-09-04 2019-09-04 Refill East, 1.2.840.9 [id number] Univers 00:00:00 00:00:00 Santiago 40968.1.1 ity of 3.104.2.7 [place] .3.696586 Medica l .8 [place] 2019-07-24 2019-07-24 Outpatient R EAST, [facility] [id number] Univers 08:30:00 08:30:00 SANTIAGO ity of [facility] 2019-07-17 2019-07-17 Outpatient R EAST, [facility] [id number] Univers 10:00:00 10:00:00 SANTIAGO ity of [facility] 2019-06-15 2019-06-15 Telephone East, 1.2.840.9 [id number] Univers 00:00:00 00:00:00 Santiago 23805.1.1 ity of 3.104.2.7 [place] .3.279819 Medica l .8 [place] 2019-06-13 2019-06-13 Telephone Team, [facility] 1.2.840.7 [id number] Univers 00:00:00 00:00:00 Health 21906.1.1 it[place] .3.122546 Medica l .8 Branch 2019-05-10 2019-05-10 Refill Ronald, 1.2.840.4 [id number] Univers 00:00:00 00:00:00 Santiago 02401.1.1 ity of 3.104.2.7 [place] .3.128954 Medica l .8 Branch 2019-05-09 2019-05-09 Refill Ronald, 1.2.840.2 [id number] Univers 00:00:00 00:00:00 [place] 03051.1.1 ity of 3.104.2.7 [place] .3.593533 Medica l .8 Branch 2019-04-30 2019-04-30 Outpatient R RODO, [facility] [id number] Univers 10:15:00 10:33:05 GADIEL barbosa o f 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 75243.1.1 ity of 3.104.2.7 [place] .3.981152 Medica l .8 Branch 2019-04-18 2019-04-18 Outpatient R RONALD [facility] [id number] Univers 10:00:00 10:44:31 SANTIAGO ity of [facility] 2019-04-18 2019-04-18 Office Ronald, 1.2.840.9 [id number] Univers 08:27:44 09:53:27 Visit Santiago 56042.1.1 ity of 3.104.2.7 [place] .3.521210 Medica l .8 Branch 2019-04-18 2019-04-18 Orders Doctor 1.2.840.4 [id number] Univers 00:00:00 00:00:00 Only Unassigned, 24580.1.1 ity of [place] 3.104.2.7 [place] .3.376419 Medica l .8 Branch 2019-04-11 2019-04-11 Refill Ronald, 1.2.840.4 [id number] Univers 00:00:00 00:00:00 [place] 88370.1.1 ity of 3.104.2.7 [place] .3.417627 Medica l .8 Branch 2019-04-09 2019-04-09 Refill East, 1.2.840.6 [id number] Univers 00:00:00 00:00:00 [place] 89694.1.1 ity of 3.104.2.7 [place] .3.365672 Medica l .8 [place] 2019-04-03 2019-04-03 Telephone Team, [facility] 1.2.840.3 [id number] Univers 00:00:00 00:00:00 Health 94630.1.1 [place].2.[place] .3.190323 Medica l .8 Branch 2019-03-27 2019-03-27 Telephone Self, 1.2.840.7 [id number] Univers 00:00:00 00:00:00 Gadiel 22516.1.1 ity of 3.104.2.7 [place] .3.125791 Medica l .8 Branch 2019-01-17 2019-01-17 Office Ronald, 1.2.840.4 [id number] Univers 07:37:21 10:32:51 Visit Santiago 20656.1.1 ity of 3.104.2.7 [place] .3.194510 Medica l .8 Branch 2019-01-04 2019-01-12 Office Eveline Hansen 1.2.840.4 [id number] Univers 11:19:32 11:08:05 Visit Mariela 53856.1.1 ity of 3.104.2.7 [place] .3.012067 Medica l .8 Branch 2019-01-10 2019-01-10 Telephone Stanislav, 1.2.840.7 [id number] [id number] Univers 00:00:00 00:00:00 Eladio Inman 82598.1.1 ity of 3.104.2.7 [place] .3.371850 Medica l .8 [place] 2018-12-18 2018-12-18 Office Geraldine, 1.2.840.5 [id number] Univers 08:48:45 09:13:43 Visit Leyda 00009.1.1 it y of 3.104.2.7 [place] .3.976400 Medica l .8 [place] 2018-10-30 2018-10-30 Telephone East, 1.2.840.0 [id number] Univers 00:00:00 00:00:00 Santiago 24943.1.1 ity of 3.104.2.7 [place] .3.894229 Medica l .8 [place] 2018-10-23 2018-10-23 Orders Doctor 1.2.840.3 [id number] Univers 00:00:00 00:00:00 Only Unassigned, 19122.1.1 ity of [place] 3.104.2.7 [place] .3.870409 Medica l .8 [place] 2018-10-23 2018-10-23 Nurse Selvin, 1.2.840.0 [id number] Univers 00:00:00 00:00:00 Triage Stefanie 57353.1.1 ity of 3.104.2.7 [place] .3.800351 Medica l .8 [place] 2018-10-23 2018-10-23 Telephone Self, 1.2.840.8 [id number] Univers 00:00:00 00:00:00 Gadiel 55949.1.1 ity of 3.104.2.7 [place] .3.650830 Medica l .8 [place] 2018-10-20 2018-10-20 Telephone Self, 1.2.840.6 [id number] Univers 00:00:00 00:00:00 Gadiel 54898.1.1 ity of 3.104.2.7 [place] .3.195850 Medica l .8 [place] Results Test Description Test Time Test Comments Results Result Comments Source COMP. METABOLIC PANEL (03976) 2022-05-06 22:42:55 Test Item Value Reference Range Interpretation Comme nts NA (test code = 2829465708) 137 mmol/L 135-145 K (test code = 1838115225) 3.2 mmol/L 3.5-5.0 L CL (test code = 3168926077) 100 mmol/L 98-108 CO2 TOTAL (test code = 6376424419) 23 mmol/L 23-31 AGAP (test code = 3653867143) 2-16 BUN (test code = 4238477128) 41 mg/dL 7-23 H GLUCOSE (test code = 6846794265) 98 mg/dL 70-110 CREATININE (test code = 1.55 mg/dL 0.50-1.04 H 5933439609) TOTAL BILI (test code = 0.8 mg/dL 0.1-1.1 3881511048) CALCIUM (test code = 1447094413) 8.3 mg/dL 8.6-10.6 L T PROTEIN (test code = 3381279993) 6.9 g/dL 6.3-8.2 ALBUMIN (test code = 0920218799) 3.9 g/dL 3.5-5.0 ALK PHOS (test code = 6436610029) 89 U/L 34-122 ALTv (test code = 1742-6) 101 U/L 5-35 H AST(SGOT) (test code = 4193477660) 203 U/L 13-40 H eGFR (test code = 6630505986) mL/min/1.73m2 KYLE (test code = KYLE) Association [...] tests). Lab Interpretation (test code = Abnormal 27919-4) [facility] WITH [id number] 22:33:52 Test Item Value Reference Range Interpretation [...] RDW-SD (test code = 46.3 fL 39.0-49.9 70467-7) RDW-CV (test code = 13.5 % 12.0-15.5 788-0) PLT (test code = See_Comment L [Automated 777-3) message] The sy stem which generated this result transmitted reference range : 166 - 358 10*3/ ?L. The reference r abbey was not used to interpret this result as normal/abnormal . MPV (test code = 9.5 fL 9.5-12.9 82021-5) NRBC/100 WBC (test See_Comment [Automat ed code = 2177685173) message] The system which generated this result transmitted reference range : 0.0 - 10.0 /100 WBCs. The refer ence range was not u sed to interpret th is result as normal/abnormal . NRBC x10^3 (test code See_Comment [Auto mated = 0889980255) message] The s ystem which generated this result transmitted reference range : 10*3/?L. The reference range was not used to interpret this result as normal/abnormal . GRAN MAT (NEUT) % 58.3 % (test code = 770-8) IMM GRAN % (test code 0.80 % = 3365304939) LYMPH % (test code = 28.1 % 736-9) MONO % (test code = 12.0 % 5905-5) EOS % (test code = 0.5 % 713-8) BASO % (test code = 0.3 % 706-2) GRAN MAT x10^3(ANC) 2.29 10*3/uL 1.88-7.09 (test code = 7860169109) IMM GRAN x10^3 (test 0.03 10*3/uL 0.00-0.06 code = 4961278541) LYMPH x10^3 (test code 1.10 10*3/uL 1.32-3.29 L = 731-0) MONO x10^3 (test code 0.47 10*3/uL 0.33-0.92 = 742-7) EOS x10^3 (test code = 0.03-0.39 L 711-2) BASO x10^3 (test code 0.01-0.07 = 704-7) Lab Interpretation Abnormal (test code = 37023-6) [facility] (NA, K, CL, CO2, GLUCOSE, BUN, CREATININE, CA)2022-04-22 21:43:42 Test Item Value Reference Range Interpretation Comments NA (test code = 142 mmol/L 135-145 3374228871) K (test code = 3.5 mmol/L 3.5-5.0 5527017987) CL (test code = 106 mmol/L 98-108 4574900178) CO2 TOTAL (test code = 26 mmol/L 23-31 9794083538) AGAP (test code = 2-16 2156244201) BUN (test code = 29 mg/dL 7-23 H 8721206069) GLUCOSE (test code = 84 mg/dL 70-110 6447749715) CREATININE (test code = 1.16 mg/dL 0.50-1.04 H 1789730632) CALCIUM (test code = 8.2 mg/dL 8.6-10.6 L 2350693738) eGFR (test code = mL/min/1.73m2 6020493296) KYLE (test code = KYLE) Association of [...] tests). Lab Interpretation Abnormal (test code = 61558-4) [facility] WITH [id number] 21:33:01 Test Item Value Reference Range Interpretation Comments WBC (test code = See_Comment [Automated 0790-2) message] The sy stem which generated this [...] (test code = 50.7 fL 39.0-49.9 H 20129-5) RDW-CV (test code = 14.6 % 12.0-15.5 788-0) PLT (test code = See_Comment L [Automated 777-3) message] The sy stem which generated this result transmitted reference range : 166 - 358 10*3/ ?L. The reference r abbey was not used to interpret this result as normal/abnormal . MPV (test code = 8.8 fL 9.5-12.9 L 24327-6) NRBC/100 WBC (test See_Comment [Automat ed code = 5452998377) message] The system which generated this result transmitted reference range : 0.0 - 10.0 /100 WBCs. The refer ence range was not u sed to interpret th is result as normal/abnormal . NRBC x10^3 (test code See_Comment [Auto mated = 0933430487) message] The s ystem which generated this result transmitted reference range : 10*3/?L. The reference range was not used to interpret this result as normal/abnormal . GRAN MAT (NEUT) % 70.9 % (test code = 770-8) IMM GRAN % (test code 0.50 % = 8811949201) LYMPH % (test code = 17.4 % 736-9) MONO % (test code = 9.0 % 5905-5) EOS % (test code = 1.7 % 713-8) BASO % (test code = 0.5 % 706-2) GRAN MAT x10^3(ANC) 4.60 10*3/uL 1.88-7.09 (test code = 8182580846) IMM GRAN x10^3 (test 0.03 10*3/uL 0.00-0.06 code = 4601001709) LYMPH x10^3 (test code 1.13 10*3/uL 1.32-3.29 L = 731-0) MONO x10^3 (test code 0.58 10*3/uL 0.33-0.92 = 742-7) EOS x10^3 (test code = 0.11 10*3/uL 0.03-0.39 711-2) BASO x10^3 (test code 0.03 10*3/uL 0.01-0.07 = 704-7) Lab Interpretation Abnormal (test code = 43325-2) [facility] CULTURE [id number] 06:01:07 Test Item Value Reference Range Interpretation Comments Blood Culture-Aerobic No organisms No growth Previo us (test code = 91622-5) isolated prelim inary verified result was Culture [...] Culture-Anaerobic isolated preliminar y (test code = 15264-1) verifi ed result was Culture In Progress [...] CDT Lab Interpretation Normal (test code = 26695-1) [facility] CULTURE [id number] 06:01:07 Test Item Value Reference Range Interpretation Comments Blood Culture-Aerobic No organisms No growth Previo us (test code = 23738-7) isolated prelim inary verified result was Culture [...] Culture-Anaerobic isolated preliminar y (test code = 47133-6) verifi ed result was Culture In Progress [...] CDT Lab Interpretation Normal (test code = 21330-1) [facility] CULTURE [id number] 06:01:07 Test Item Value Reference Range Interpretation Comments Blood Culture-Aerobic No organisms No growth Previo us (test code = 18045-9) isolated prelim inary verified result was Culture [...] Culture-Anaerobic isolated preliminar y (test code = 94414-4) verifi ed result was Culture In Progress [...] CDT Lab Interpretation Normal (test code = 01482-2) [facility] [id number] 10:49:10 Test Item Value Reference Range Interpretation Comments NT-proBNP (test code 2660 pg/mL See_Comment H [Autom ated = 9241130800) message] The system which generated this result transmitted reference range : <=125. The reference range was not used to interpret this result as normal/abnormal . KYLE (test code = KYLE) Biotin has been reported to cause a negative bias, interpret results relative to patient's use of biotin. Lab Interpretation Abnormal (test code = 16568-2) [facility] [id number] 10:49:10 Test Item Value Reference Range Interpretation Comments NT-proBNP (test code 2660 pg/mL See_Comment H [Autom ated = 5728651543) message] The system which generated this result transmitted reference range : <=125. The reference range was not used to interpret this result as normal/abnormal . KYLE (test code = KYLE) Biotin has been reported to cause a negative bias, interpret results relative to patient's use of biotin. Lab Interpretation Abnormal (test code = 37880-6) [facility] METABOLIC PANEL (NA, K, CL, CO2, GLUCOSE, BUN, CREATININE, CA)2022-02-15 10:44:07 Test Item Value Reference Range Interpretation Comments NA (test code = 134 mmol/L 135-145 L 5426107104) K (test code = 3.2 mmol/L 3.5-5 L 9710216135) CL (test code = 98 mmol/L 98-108 8499708353) CO2 TOTAL (test code = 27 mmol/L 23-31 5467395049) AGAP (test code = 2-16 8916093449) BUN (test code = 19 mg/dL 7-23 3303692593) GLUCOSE (test code = 102 mg/dL 70-110 7602490698) CREATININE (test code = 0.95 mg/dL 0.5-1.04 6988997810) CALCIUM (test code = 8.5 mg/dL 8.6-10.6 L 3480587204) eGFR (test code = mL/min/1.73m2 6682665693) KYLE (test code = KYLE) Association of [...] tests). Lab Interpretation Abnormal (test code = 45552-5) [facility]2022-09-26 10:44:07 Test Item Value Reference Range Interpretation Comments MAGNESIUM (test code = 6601409977) 1.8 mg/dL 1.7-2.4 Lab Interpretation (test code = Normal 34585-8) [facility]2022-09-26 10:44:07 Test Item Value Reference Range Interpretation Comments MAGNESIUM (test code = 1274149594) 1.8 mg/dL 1.7-2.4 Lab Interpretation (test code = Normal 92085-0) [facility] (NA, K, CL, CO2, GLUCOSE, BUN, CREATININE, CA)2022-02-15 10:44:07 Test Item Value Reference Range Interpretation Comments NA (test code = 134 mmol/L 135-145 L 3032511755) K (test code = 3.2 mmol/L 3.5-5.0 L 0820715194) CL (test code = 98 mmol/L 98-108 2801456495) CO2 TOTAL (test code = 27 mmol/L 23-31 4298456461) AGAP (test code = 2-16 5071939373) BUN (test code = 19 mg/dL 7-23 3336702519) GLUCOSE (test code = 102 mg/dL 70-110 7755131177) CREATININE (test code = 0.95 mg/dL 0.50-1.04 7411301925) CALCIUM (test code = 8.5 mg/dL 8.6-10.6 L 7468951795) eGFR (test code = mL/min/1.73m2 1827020428) KYLE (test code = KYLE) Association of [...] tests). Lab Interpretation Abnormal (test code = 91359-3) [facility] WITH [id number] 10:12:06 Test Item Value Reference Range Interpretation [...] RDW-SD (test code = 47.8 fL 39-49.9 46096-7) RDW-CV (test code = 15.2 % 12-15.5 788-0) PLT (test code = See_Comment L [Automated 777-3) message] The sy stem which generated this result transmitted reference range : 166 - 358 10*3/ ?L. The reference r abbey was not used to interpret this result as normal/abnormal . MPV (test code = 8.9 fL 9.5-12.9 L 01314-0) NRBC/100 WBC (test See_Comment [Automat ed code = [id number]) message] The system which generated this result transmitted reference range : 0.0 - 10.0 /100 WBCs. The refer ence range was not u sed to interpret th is result as normal/abnormal . NRBC x10^3 (test code See_Comment [Auto mated = [id number]) message] The s ystem which generated this result transmitted reference range : 10*3/?L. The reference range was not used to interpret this result as normal/abnormal . GRAN MAT (NEUT) % 65.9 % (test code = 770-8) IMM GRAN % (test code 0.30 % = 2337573321) LYMPH % (test code = 21.0 % 736-9) MONO % (test code = 10.1 % 5905-5) EOS % (test code = 2.4 % 713-8) BASO % (test code = 0.3 % 706-2) GRAN MAT x10^3(ANC) 2.49 10*3/uL 1.88-7.09 (test code = 2841378576) IMM GRAN x10^3 (test 0-0.06 code = 2602885809) LYMPH x10^3 (test code 0.79 10*3/uL 1.32-3.29 L = 731-0) MONO x10^3 (test code 0.38 10*3/uL 0.33-0.92 = 742-7) EOS x10^3 (test code = 0.09 10*3/uL 0.03-0.39 711-2) BASO x10^3 (test code 0.01-0.07 = 704-7) Lab Interpretation Abnormal (test code = 56913-5) [facility] WITH [id number] 10:12:06 Test Item Value Reference Range Interpretation [...] RDW-SD (test code = 47.8 fL 39.0-49.9 46152-5) RDW-CV (test code = 15.2 % 12.0-15.5 788-0) PLT (test code = See_Comment L [Automated 777-3) message] The sy stem which generated this result transmitted reference range : 166 - 358 10*3/ ?L. The reference r abbey was not used to interpret this result as normal/abnormal . MPV (test code = 8.9 fL 9.5-12.9 L 26283-8) NRBC/100 WBC (test See_Comment [Automat ed code = 5560166189) message] The system which generated this result transmitted reference range : 0.0 - 10.0 /100 WBCs. The refer ence range was not u sed to interpret th is result as normal/abnormal . NRBC x10^3 (test code See_Comment [Auto mated = 7866106376) message] The s ystem which generated this result transmitted reference range : 10*3/?L. The reference range was not used to interpret this result as normal/abnormal . GRAN MAT (NEUT) % 65.9 % (test code = 770-8) IMM GRAN % (test code 0.30 % = [id number]) LYMPH % (test code = 21.0 % 736-9) MONO % (test code = 10.1 % 5905-5) EOS % (test code = 2.4 % 713-8) BASO % (test code = 0.3 % 706-2) GRAN MAT x10^3(ANC) 2.49 10*3/uL 1.88-7.09 (test code = 9559098219) IMM GRAN x10^3 (test 0.00-0.06 code = 8840581997) LYMPH x10^3 (test code 0.79 10*3/uL 1.32-3.29 L = 731-0) MONO x10^3 (test code 0.38 10*3/uL 0.33-0.92 = 742-7) EOS x10^3 (test code = 0.09 10*3/uL 0.03-0.39 711-2) BASO x10^3 (test code 0.01-0.07 = 704-7) Lab Interpretation Abnormal (test code = 88271-2) [facility] WITH [id number] 11:18:28 Test Item Value Reference Range Interpretation [...] RDW-SD (test code = 49.5 fL 39-49.9 97903-3) RDW-CV (test code = 15.5 % 12-15.5 788-0) PLT (test code = See_Comment L [Automated 777-3) message] The sy stem which generated this result transmitted reference range : 166 - 358 10*3/ ?L. The reference r abbey was not used to interpret this result as normal/abnormal . MPV (test code = 11.4 fL 9.5-12.9 91719-5) IPF % (test code = 8.7 % 1.3-7.7 H Platelet count 3446772966) measured by fluorescence method. NRBC/100 WBC (test See_Comment [Automat ed code = 2901539727) message] The system which generated this result transmitted reference range : 0.0 - 10.0 /100 WBCs. The refer ence range was not u sed to interpret th is result as normal/abnormal . NRBC x10^3 (test code See_Comment [Auto mated = 2186005818) message] The s ystem which generated this result transmitted reference range : 10*3/?L. The reference range was not used to interpret this result as normal/abnormal . GRAN MAT (NEUT) % 62.0 % (test code = 770-8) IMM GRAN % (test code 0.80 % = 3840279417) LYMPH % (test code = 22.2 % 736-9) MONO % (test code = 9.6 % 5905-5) EOS % (test code = 5.1 % 713-8) BASO % (test code = 0.3 % 706-2) GRAN MAT x10^3(ANC) 2.21 10*3/uL 1.88-7.09 (test code = 5202474245) IMM GRAN x10^3 (test 0.03 10*3/uL 0-0.06 code = 7809332916) LYMPH x10^3 (test code 0.79 10*3/uL 1.32-3.29 L = 731-0) MONO x10^3 (test code 0.34 10*3/uL 0.33-0.92 = 742-7) EOS x10^3 (test code = 0.18 10*3/uL 0.03-0.39 711-2) BASO x10^3 (test code 0.01-0.07 = 704-7) POLYCHROMASIA (test 2+ See_Comment [Automa arpit code = 14251-6) message] The system which generated this result [...] . Lab Interpretation Abnormal (test code = 47304-9) [facility] METABOLIC PANEL (NA, K, CL, CO2, GLUCOSE, BUN, CREATININE, CA)2022-02-13 10:39:07 Test Item Value Reference Range Interpretation Comments NA (test code = 136 mmol/L 135-145 3850528513) K (test code = 4.1 mmol/L 3.5-5 6044050776) CL (test code = 102 mmol/L 98-108 8468271919) CO2 TOTAL (test code = 27 mmol/L 23-31 0999973350) AGAP (test code = 2-16 1800048015) BUN (test code = 22 mg/dL 7-23 2186214678) GLUCOSE (test code = 94 mg/dL 70-110 6309509783) CREATININE (test code = 0.94 mg/dL 0.5-1.04 9882067511) CALCIUM (test code = 8.1 mg/dL 8.6-10.6 L 6356119515) eGFR (test code = mL/min/1.73m2 0509728180) KYLE (test code = KYLE) Association of [...] tests). Lab Interpretation Abnormal (test code = 52070-7) [facility] 01:50:10 Test Item Value Reference Range Interpretation Comments Height (test code = in 2436688111) Weight (test code = lbs 6720997143) Systolic BP (test code mmHg = 5594503613) Diastolic BP (test code mmHg = 2880178593) Heart Rate (test code = bpm 0424372616) BSA (test code = 1.85 m2 2578578344) IVS (test code = 1.22 cm 3536980015) Interventricular Septum 1.22 cm Diastolic Thickness by 2D (test code = 2643239) LVIDD (test code = 5.00 cm 4452118882) Left Ventricular End 117.9 mL Diastolic Volume by Teichholz Method (test code = 9644750) LVPWD (test code = 1.22 cm 7964611449) PW (test code = 1.22 cm 0.6-1.3 5689720859) EF(Teich) (test code = 74.60 % 2219510133) LVIDS (test code = 2.80 cm 3317589900) Left Ventricular End 29.9 mL Systolic Volume by Teichholz Method (test code = 2700535) FS (test code = 44 % 2635701673) EF - 2D (test code = 74.60 % 07510947) LVOT diameter (test 2.16 cm code = 6280856417) LVOT area (test code = 3.70 cm2 4103965659) Ao root diam (test code 3.40 cm = 9127936340) Aortic root (test code 3.4 cm = 5560025120) Ao root annulus (test 3.4 cm code = 4605816910) LA size (test code = 3.4 cm 9935856013) TR Peak Spencer (test code 330.0 cm/s = 1650080088) Triscuspid Valve mmHg Regurgitation Peak Gradient (test code = 4385254255) PV REGURGITATION PEAK mmHg GRADIENT (test code = 7478968366) PI dec slope (test code 137.20 cm/s2 = 6580145834) LAV(MOD-sp4) (test code 102.90 mL = 2803872593) MV Peak E Spencer (test 84.1 cm/s code = 1647860437) MV Peak A Spencer (test 40.1 cm/s code = 1927447316) E/A ratio (test code = ratio 3876456351) MV valve area p 1/2 3.70 cm2 method (test code = 5001687668) MV dec slope (test code 413.00 cm/s2 = 7146941860) MV P1/2t max spencer (test 83.70 cm/s code = 7890891874) MV Prop V (test code = 41.80 cm/s 6890731002) Tapse (test code = 1.83 cm 9661129168) LVOT stroke volume 96.90 cm3 (test code = 8542297992) LVOT peak spencer (test 125.5 cm/s code = 5451900445) LVOT mn grad (test code mmHg = 9906866600) AV LVOT peak gradient mmHg (test code = 7803230647) LVOT peak VTI (test 26.4 cm code = 3195155369) LV V1 mean (test code = 78.10 cm/s 9180521987) Aortic valve mean 103.7 cm/s velocity (test code = 4388359732) Ao peak spencer (test code 165.6 cm/s = 5459149682) Ao VTI (test code = 37.2 cm 1933029748) AV area by cont VTI 2.6 cm2 (test code = 9777819353) AV area peak spencer (test 2.8 cm2 code = 4372287656) Ao max PG (test code = 11.00 mm[Hg] 5357344030) AV peak gradient (test mmHg code = 5160167151) AV valve area (test 2.60 cm2 code = 7356677131) AV mean gradient (test mmHg code = 2116050759) LA Volume Index (BP) 55.2 mL/m2 (test code = 4278200544) LA volume (BP) (test 102.1 mL code = 2909834654) LAV(MOD-sp2) (test code 86.10 mL = 3565039106) A2C EF (test code = 61.20 % 8537910577) EF(sp2-el) (test code = 61.60 % 2504438965) SV(MOD-sp2) (test code 47.10 mL = 9786698844) LV Diastolic Volume 70.7 mL (BP) (test code = 1463735601) A4C EF (test code = 53.00 % 2151786042) EF(MOD-bp) (test code = 56.70 % 2705514521) EF(sp4-el) (test code = 53.90 % 3806306231) LV Systolic Volume (BP) 30.6 mL (test code = 0910266634) SV(MOD-bp) (test code = 40.10 mL 8801971642) SV(MOD-sp4) (test code 32.40 mL = 8770242332) SV(sp4-el) (test code = 33.10 mL 6820334566) EF (test code = 2241845316) Left Ventricular Stroke 40.1 mL Volume by 2-D Biplane-MOD (test code = 2414211) LV Diastolic Volume 38.2 mL/m2 Index (BP) (test code = 2761726084) LV Systolic Volume 16.5 mL/m2 Index (BP) (test code = 8408809586) Radiology Study observation (narrative) (test code = 45707-0) KYLE (test code = KYLE) ?Left?Ventricle: Left [...] 1.00The left ventricular wall motion is normal. [facility] [id number] 05:45:01 Test Item Value Reference Interpretation Comments Range TROPONIN I (test See_Comment [Automated code = 0110772732) message] The system which generated this result [...] biotin. Lab Interpretation Normal (test code = 09235-5) [facility]AL VAC-[id number] 05:41:40 Test Item Value Reference Range Interpretation Comments NT-proBNP (test code 4250 pg/mL See_Comment H [Autom ated = 4504732217) message] The system which generated this result transmitted reference range : <=125. The reference range was not used to interpret this result as normal/abnormal . KYLE (test code = KYLE) Biotin has been reported to cause a negative bias, interpret results relative to patient's use of biotin. Lab Interpretation Abnormal (test code = 01939-3) [facility] THRM[facility] [id number] 05:35:21 Test Item Value Reference Range Interpretation Comments APTT Patient (test See_Comment [Automat ed code = 3173-2) message] The system which generated this result transmitted reference range : 23 - 38 Seconds . The reference range was not used to interpr et this result as normal/abnormal . KYLE (test code = KYLE) The [facility] patient population mean normal value for aPTT is 30 seconds. Lab Interpretation Normal (test code = 71515-9) [facility] [id number] 05:35:21 Test Item Value Reference Range Interpretation Comments APTT Patient (test See_Comment [Automat ed code = 3173-2) message] The system which generated this result transmitted reference range : 23 - 38 Seconds . The reference range was not used to interpr et this result as normal/abnormal . KYLE (test code = KYLE) The [facility] patient population mean normal value for aPTT is 30 seconds. Lab Interpretation Normal (test code = 35431-7) [facility] RegionalPROTHROMBIN TIME / [id number] 05:33:21 Test Item Value Reference Range Interpretation [...] tions. Lab Interpretation (test Normal code = 62798-5) [facility]COMP[facility] METABOLIC PANEL (85099)2022-02-11 05:33:21 Test Item Value Reference Range Interpretation Comments NA (test code = 137 mmol/L 135-145 9178096600) K (test code = 4.3 mmol/L 3.5-5 0674297659) CL (test code = 103 mmol/L 98-108 4410186588) CO2 TOTAL (test code = 25 mmol/L 23-31 8725484904) AGAP (test code = 2-16 2586312112) BUN (test code = 19 mg/dL 7-23 6364444537) GLUCOSE (test code = 120 mg/dL 70-110 H 7296931303) CREATININE (test code = 1.15 mg/dL 0.5-1.04 H 7668157997) TOTAL BILI (test code = 0.9 mg/dL 0.1-1.7 0390466702) CALCIUM (test code = 8.9 mg/dL 8.6-10.6 7632652068) T PROTEIN (test code = 6.6 g/dL 6.3-8.2 4604761071) ALBUMIN (test code = 4.0 g/dL 3.5-5 3470132713) ALK PHOS (test code = 73 U/L 34-122 5609901451) ALTv (test code = 18 U/L 5-35 1742-6) AST(SGOT) (test code = 31 U/L 13-40 9347050998) eGFR (test code = mL/min/1.73m2 4670117709) KYLE (test code = KYLE) Association of [...] tests). Lab Interpretation Abnormal (test code = 18157-3) [facility]. METABOLIC PANEL (50923)2022-02-11 05:33:21 Test Item Value Reference Range Interpretation Comments NA (test code = 137 mmol/L 135-145 8739213055) K (test code = 4.3 mmol/L 3.5-5.0 8158360982) CL (test code = 103 mmol/L 98-108 6971557869) CO2 TOTAL (test code = 25 mmol/L 23-31 6303097453) AGAP (test code = 2-16 2352634099) BUN (test code = 19 mg/dL 7-23 7745580329) GLUCOSE (test code = 120 mg/dL 70-110 H 9274246063) CREATININE (test code = 1.15 mg/dL 0.50-1.04 H 1349925986) TOTAL BILI (test code = 0.9 mg/dL 0.1-1.8 5826485559) CALCIUM (test code = 8.9 mg/dL 8.6-10.6 5713000091) T PROTEIN (test code = 6.6 g/dL 6.3-8.2 2892890562) ALBUMIN (test code = 4.0 g/dL 3.5-5.0 5290870549) ALK PHOS (test code = 73 U/L 34-122 9839233302) ALTv (test code = 18 U/L 5-35 1742-6) AST(SGOT) (test code = 31 U/L 13-40 3996418971) eGFR (test code = mL/min/1.73m2 4099269272) KYLE (test code = KYLE) Association of [...] tests). Lab Interpretation Abnormal (test code = 11288-5) [facility] RegionalPROT[facility]OM[facility] TIME / [id number] 05:33:21 Test Item Value Reference Range Interpretation Comments PROTIME PATIENT (test See_Comment [Auto mated message] code = 5964-2) The system [employer] generated this result transmitted ref erence range: 12.0 - 1 4.7 Seconds. The re ference range was not u sed to interpret this result as normal/abnor mal. INR (test code = 6301-6) Nor mal INR <1.1; Warfarin Therap eutic range 2.0 to 3. 0 or 2.5 to 3.5, dep ending upon the indica tions. Lab Interpretation (test Normal code = 71447-3) [facility] WITH [id number] 05:14:37 Test Item Value Reference Range Interpretation [...] RDW-SD (test code = 47.9 fL 39-49.9 63221-3) RDW-CV (test code = 14.9 % 12-15.5 788-0) PLT (test code = See_Comment L [Automated 777-3) message] The sy stem which generated this result transmitted reference range : 166 - 358 10*3/ ?L. The reference r abbey was not used to interpret this result as normal/abnormal . MPV (test code = 9.1 fL 9.5-12.9 L 30263-3) NRBC/100 WBC (test See_Comment [Automat ed code = 2016183460) message] The system which generated this result transmitted reference range : 0.0 - 10.0 /100 WBCs. The refer ence range was not u sed to interpret th is result as normal/abnormal . NRBC x10^3 (test code See_Comment [Auto mated = 7830102859) message] The s ystem which generated this result transmitted reference range : 10*3/?L. The reference range was not used to interpret this result as normal/abnormal . GRAN MAT (NEUT) % 78.5 % (test code = 770-8) IMM GRAN % (test code 0.20 % = 2718798563) LYMPH % (test code = 11.6 % 736-9) MONO % (test code = 8.4 % 5905-5) EOS % (test code = 1.1 % 713-8) BASO % (test code = 0.2 % 706-2) GRAN MAT x10^3(ANC) 3.45 10*3/uL 1.88-7.09 (test code = 6386444266) IMM GRAN x10^3 (test 0-0.06 code = 7543516901) LYMPH x10^3 (test code 0.51 10*3/uL 1.32-3.29 L = 731-0) MONO x10^3 (test code 0.37 10*3/uL 0.33-0.92 = 742-7) EOS x10^3 (test code = 0.05 10*3/uL 0.03-0.39 711-2) BASO x10^3 (test code 0.01-0.07 = 704-7) Lab Interpretation Abnormal (test code = 04723-6) [facility] Coronavirus 2019 Remyaem8121-36-96 18:08:00 Test Item Value Reference Range Interpretation [...] det ection of nucleic acids f rom gwgDNWN-KnH-8 v irus and diagnosis of SA RS-CoV-2 virusinfection. It is an Emergency Use Authorization ( EUA) testauthorized by the U.S. FDA. BASIC METABOLIC [id number] 09:37:00 Test Item Value Reference Range Interpretation [...] = 9.0 mg/dL 8.0-10.5 N CA) PROTHROMBIN [id number] 09:32:00 Test Item Value Reference Range Interpretation [...] (to prevent recurrent infar ct). 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 [facility] - XR CHEST 1 [id number] 00:00:00 [facility] : 1955 Sex: F FAX: Carmenza Kelly DO [phone] [place]: St: FAX: Mike Scales MD [phone] FAX: Bahman Chopra [phone] Name: LIO WATTS : 1955 Age/S: 66/F [address] [place] [address] Unit #: [id number] Loc: [place] [address] 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 BASIC METABOLIC [id number] 11:37:00 Test Item Value Reference Range Interpretation [...] code = 9.0 mg/dL 8.0-10.5 N CA) [id number] 11:37:00 Test Item Value Reference Range Interpretation Comments PREALBUMIN (test code = PREALB) 24.3 mg/dL 16.0-40.0 N PROTHROMBIN [id number] 11:03:00 Test Item Value Reference Range Interpretation [...] (to prevent recurrent infar ct). CBC W/AUTO [id number] 10:59:00 Test Item Value Reference Range Interpretation [...] 0.0-0.1 N NRBC#) - XR CHEST 2 [id number] 00:00:00 [facility] : 1955 Sex: F FAX: RobinCarmenza Singh Kristen VARELA [phone] [place]: St: PRE FAX: Mike Scales MD [phone] Name: LIO WATTS [facility] : 1955 Age/S: 66/F [address] [place] [address] Unit #: [id number] Loc: [place] [address] Phys: Mike Lund MD Acct: [id number] Dis Date: Status[place] [facility] #: [phone] Exam Date : 06/16/2021 1120 FAX #: [phone] Reason: PREOP EXAMS: CPT CODE: [id number] XR CHEST 2 V 22349 PROCEDURE INFORMATION: Exam: XR Chest Exam date and time: 06/16/2021 10:52 AM Age: 66 years old Clinical indication: Pre-operative exam; Respiratory screening exam; Additional info: Preop TECHNIQUE: Imaging protocol: XR of the chest. Views: 2 views. PA and Lateral COMPARISON: No relevant prior studies available. FINDINGS: Lungs: No consolidation. Pleural spaces: No pleural effusion. Heart/Mediastinum:Heart is borderline in size.There is atherosclerotic calcification of the aorta. Bilateral shoulder hardware is partially seen. Bones/joints: No gross acute findings. IMPRESSION: No acute cardiopulmonary findings at 1134 Reported and signed by: Selene Collins D.O. CC: Llee Rahman DO; Mike Lund MD Technologist: Danielle Nix RT(R) Trnohrd Date/Time/By: 06/16/2021 (7678) : By: [email or web address] Orig Print D/T: S: 06/16/2021 (1021) PAGE 1 Signed ReportGastrointestinal npeow1353-62-00 04:35:05 Test Item Value Reference Interpretation Comments [...] Rotavirus PCR (test Not Detected code = 5564440) Salmonella PCR (test Not Detected code = [...] PCR Not Detected (test code = 7124) [facility] txpfgwe1147-73-08 19:30:47 Test Item Value Reference Range Interpretation Comments Case number (test [id number] code = 2194726) Surgical pathology See link below for PDF report (test code = Lab Report 2255) Result status (test This is Supplemental code = 9351965) Report for [id number] [facility]hamYkiegjjaEVWADSAAYX9711-93-82 16:31:00 Test Item Value Reference Range Interpretation Comments POC Activated Clotting Time (test code 153 s = POC Activated Clotting Time) [facility]ZflxpxqVWGZEOMVAE4143-60-82 16:31:00 Test Item Value Reference Range Interpretation Comments POC Activated Clotting Time (test code 153 s = POC Activated Clotting Time) [facility] HospitalQuccduuZWGYWVFKMI3750-69-03 16:31:00 Test Item Value Reference Range Interpretation Comments POC Activated Clotting Time (test code 153 s = POC Activated Clotting Time) [facility] HospitalKwirgrgHDJWPKMNZP3558-14-93 16:31:00 Test Item Value Reference Range Interpretation Comments POC Activated Clotting Time (test code 153 s = POC Activated Clotting Time) [facility] HospitalVovczngJLTCUFNVKG9157-91-87 16:31:00 Test Item Value Reference Range Interpretation Comments POC Activated Clotting Time (test code 153 s = POC Activated Clotting Time) [facility] HospitalFxlocrnJMSKPTIGGX3863-63-63 16:31:00 Test Item Value Reference Range Interpretation Comments POC Activated Clotting Time (test code 153 s = POC Activated Clotting Time) [facility] HospitalTazpejqCHEJIARCQU1874-42-65 16:31:00 Test Item Value Reference Range Interpretation Comments POC Activated Clotting Time (test code 153 s = POC Activated Clotting Time) [facility] HospitalOyzduztCMQCBPHWXM9255-79-31 14:37:00 Test Item Value Reference Range Interpretation Comments POC Activated Clotting Time (test code 454 s = POC Activated Clotting Time) [facility] HospitalRquilahTNVJHPHPES9038-51-23 14:37:00 Test Item Value Reference Range Interpretation Comments POC Activated Clotting Time (test code 454 s = POC Activated Clotting Time) [facility] HospitalVkieiohVRCNEMOVZK3489-24-98 14:37:00 Test Item Value Reference Range Interpretation Comments POC Activated Clotting Time (test code 454 s = POC Activated Clotting Time) [facility] HospitalTxvptyyFCROOJXLPI8075-62-83 14:37:00 Test Item Value Reference Range Interpretation Comments POC Activated Clotting Time (test code 454 s = POC Activated Clotting Time) [facility] HospitalXvjlxdyMYQIGMBEIK9576-16-51 14:37:00 Test Item Value Reference Range Interpretation Comments POC Activated Clotting Time (test code 454 s = POC Activated Clotting Time) [facility] HospitalVdliruhOISNFJHYFH8104-16-21 14:37:00 Test Item Value Reference Range Interpretation Comments POC Activated Clotting Time (test code 454 s = POC Activated Clotting Time) [facility] HospitalVascsnaRJXMPLRUFE9377-07-21 14:37:00 Test Item Value Reference Range Interpretation Comments POC Activated Clotting Time (test code 454 s = POC Activated Clotting Time) [facility] HospitalQkohmkrWOFCPCPDBJ3030-47-78 14:13:00 Test Item Value Reference Range Interpretation Comments POC Activated Clotting Time (test code 354 s = POC Activated Clotting Time) [facility] HospitalEjtufjuLQKYKDTULP6854-09-76 14:13:00 Test Item Value Reference Range Interpretation Comments POC Activated Clotting Time (test code 354 s = POC Activated Clotting Time) [facility] HospitalVkvltmdYHSXDVROFZ7662-10-62 14:13:00 Test Item Value Reference Range Interpretation Comments POC Activated Clotting Time (test code 354 s = POC Activated Clotting Time) [facility] HospitalNrvmcqxZKKRYDFXLD3102-81-35 14:13:00 Test Item Value Reference Range Interpretation Comments POC Activated Clotting Time (test code 354 s = POC Activated Clotting Time) [facility] HospitalOrtkxlgBIZTKOOGPZ0614-96-09 14:13:00 Test Item Value Reference Range Interpretation Comments POC Activated Clotting Time (test code 354 s = POC Activated Clotting Time) [facility] HospitalWzzhmobOJGWOCHGOC7240-23-56 14:13:00 Test Item Value Reference Range Interpretation Comments POC Activated Clotting Time (test code 354 s = POC Activated Clotting Time) [facility] HospitalGzmoizoJRVWRJIMNA1522-40-74 14:13:00 Test Item Value Reference Range Interpretation Comments POC Activated Clotting Time (test code 354 s = POC Activated Clotting Time) [facility] OTDSAIR8120-45-24 10:37:00Negative (08/29/20 5:37 AM) [facility] NSBES6300-73-56 10:37:27410Alxgmvxe HermannCHEM PANEL 2020-08-29 10:37:0028[facility] HermannCHEM XCMTL0146-79-81 10:37:001.01[facility] HermannCHEM JTNWA6816-29-17 10:37:87358Evhmxxds HermannCHEM OLXML8124-59-04 10:37:003.8[facility] HermannCHEM DJZLJ6900-38-66 10:37:96326Wntozsiw HermannCHEM HTNAU3624-79-91 10:37:0028[facility] HermannCHEM XZITQ2745-63-82 10:37:009.8 [facility]annCHEM OUPAF7594-70-03 10:37:0011.8[facility] HermannCHEM PANEL 2020-08-29 10:37:0059[facility] HermannCHEM MQGUF6729-30-76 10:37:002.9[facility] VffyqmmXJXNLCSCOH0111-51-90 10:37:006.8[facility] GuduthaPUHSEVLCRQ7944-82-55 10:37:004.47[facility] SpdadgdTVOXGIFIQA0559-63-45 10:37:0010.6[facility] DMJRTBIPBQ5756-05-19 10:37:0034.0[facility] TgwoqnuCLMEJGYULR6836-32-16 10:37:00 76.1[facility] FyaavlrLQPLMNVKLW0434-71-65 10:37:00 Test Item Value Reference Range Interpretation Comments MCH (test code = MCH) 23.8 pg 27.0-31.0 [facility] MzwegtmOLATDVBRGC0237-81-80 10:37:0031.3[facility] HermannHEMATOLOGY 2020-08-29 10:37:0018.2[facility] BrfyaisUYRCVHKVMU0323-28-94 10:37:17002Wjhfjong GoumklmKFTPIUZRDD9269-90-35 10:37:007.5[facility] MjducjuNAPEUJHBKX2161-24-82 10:37:00 Test Item Value Reference Range Interpretation Comments PT (test code = PT) 12.8 s 12.0-14.7 [facility] PasqbjfHUYRAEHBOB5898-09-27 10:37:00 Test Item Value Reference Range Interpretation Comments INR (test code = INR) 0.97 1 0.85-1.17 [facility] BsydnipHTNXVEXQPY6535-53-11 10:37:00 Test Item Value Reference Range Interpretation Comments PTT (test code = PTT) 25.0 s 22.9-35.8 [facility] VsypvvqOZSTPNJRFT9651-24-40 10:37:0070.5[facility] HermannHEMATOLOGY 2020-08-29 10:37:0018.8[facility] TvspxwnMRJOHIXTRR1855-96-34 10:37:009.5[facility] EeesdceYJUYOHQTBR4018-73-36 10:37:000.9[facility] XgqtqfqHCKOTSXSYQ5103-31-77 10:37:000.3[facility] DgojpumCNKQWVBDQO2829-38-91 10:37:004.8[facility] AXWPOBBFQM2622-53-20 10:37:001.3[facility] PetlrsvKHPCNZITHU4708-82-71 10:37:000.6 [facility] GqrjzutCRSHHNTKAN7876-96-02 10:37:000.1[facility] 2020-08-29 10:37:001+ *ABN*(08/29/20 5:37 AM)[facility] KsasaahERHBCRASIR7945-86-41 10:37:00Not Detected (08/29/20 5:37 AM)[facility] 2020-08-29 10:37:00Negative (08/29/20 5:37 AM)[facility]annCHEM ILDUF5488-89-52 10:37:00636Ughjshva HermannCHEM PIGNJ6467-49-15 10:37:0028[facility]annCHEM DLPTQ9212-21-95 10:37:001.01[facility]annCHEM GRIQX0062-61-74 10:37:93520 [facility]annCHE[facility] TDXZK8937-77-18 10:37:003.8[facility] HermannCHEM PANEL 2020-08-29 10:37:82536Ugietcnj HermannCHEM VTKMP1140-95-38 10:37:0028[facility] HermannCHEM ZMASG2811-48-95 10:37:009.8[facility] HermannCHEM JQPWO4441-93-96 10:37:0011.8[facility] HermannCHEM MJMLI7943-29-19 10:37:0059[facility] HermannCHEM PPZBI5616-57-76 10:37:002.9[facility] WtxyqgoSMVMLTFJOJ7373-07-65 10:37:006.8 [facility] GxwsfnjXOAHVBRQBK0863-29-17 10:37:004.47[facility] HermannHEMATOLOGY 2020-08-29 10:37:0010.6[facility] QhywclsGKAXNLXNJP5320-09-12 10:37:0034.0[facility] NryacfwVFWZIRZHOG7707-49-30 10:37:0076.1[facility] YypttywMOVRTPQUDO2979-56-53 10:37:00 Test Item Value Reference Range Interpretation Comments MCH (test code = MCH) 23.8 pg 27.0-31.0 [facility] BjduzdoMKKEXNXQQU5925-94-50 10:37:0031.3[facility] HermannHEMATOLOGY 2020-08-29 10:37:0018.2[facility] FpmgzvkZJWGZVPBMO4644-51-32 10:37:14820Nycavobp UtpcjlgDWVVLXAYKY9686-29-18 10:37:007.5[facility] VlkydumRIRGKNQCNY4564-20-30 10:37:00 Test Item Value Reference Range Interpretation Comments PT (test code = PT) 12.8 s 12.0-14.7 [facility] JxayfawYYHSXPZEJI7796-76-45 10:37:00 Test Item Value Reference Range Interpretation Comments INR (test code = INR) 0.97 1 0.85-1.17 [facility] IelztbaHEEJTXJLJN6524-87-61 10:37:00 Test Item Value Reference Range Interpretation Comments PTT (test code = PTT) 25.0 s 22.9-35.8 [facility] QbrqtncCVPCQRYILG8539-42-32 10:37:0070.5[facility] HermannHEMATOLOGY 2020-08-29 10:37:0018.8[facility] UfhvzclBNOIDRCIBX9134-70-19 10:37:009.5[facility] JgmqbnmPGBJGPALPP4971-91-52 10:37:000.9[facility] IiwtuvzYGUULCZFLX3977-29-28 10:37:000.3[facility] KnmmtjhTOPGOBIMJN0402-22-54 10:37:004.8[facility] VTZFSRMMVN9478-99-24 10:37:001.3[facility] EjpkgevGGJTYAUNTW5705-71-61 10:37:000.6 [facility] ZtqighyMELXEYNKHO0206-34-36 10:37:000.1[facility] HermannHEMATOLOGY 2020-08-29 10:37:001+ *ABN*(08/29/20 5:37 AM)[facility] FebefseDOWRVZTGWX7617-03-07 10:37:00Not Detected (08/29/20 5:37 AM)[facility] HermannBLOOD BANK RESULTS 2020-08-29 10:37:00Negative (08/29/20 5:37 AM)[facility] HermannCHEM DPPKR7788-13-04 10:37:73676Qhenxbpl HermannCHEM LPFUN5288-69-19 10:37:0028[facility] HermannCHEM UIVGU5478-09-46 10:37:001.01[facility] HermannCHEM QOSVV4945-31-01 10:37:19656 [facility]annCHEM HUEIU2771-65-30 10:37:003.8[facility] HermannCHEM PANEL 2020-08-29 10:37:93321Jisckohb HermannCHEM DGKXW2241-02-88 10:37:0028[facility] HermannCHEM ZDWIY1705-67-46 10:37:009.8[facility] HermannCHEM YAGSL7514-05-85 10:37:0011.8[facility] HermannCHEM MZAGN0314-72-06 10:37:0059[facility] HermannCHEM HOQLD0594-48-17 10:37:002.9[facility] LbzkenwGVOQKTFOSF0865-95-15 10:37:006.8 [facility] NgjufzkXRNDVLHBOX2079-54-39 10:37:004.47[facility] HermannHEMATOLOGY 2020-08-29 10:37:0010.6[facility] OncpwtkOUPJUVKMOW8696-06-91 10:37:0034.0[facility] HdieplbJAGDHAHVYR4087-28-96 10:37:0076.1[facility] JtatktqXKVDLQKQNC6371-15-23 10:37:00 Test Item Value Reference Range Interpretation Comments MCH (test code = MCH) 23.8 pg 27.0-31.0 [facility] EmnzidqZOZZOLXLKE1086-78-08 10:37:0031.3[facility] HermannHEMATOLOGY 2020-08-29 10:37:0018.2[facility] OhfypgiFFQPQKNCOO2758-57-03 10:37:09008Ksnxatum NdaiubjWVGPCFVENQ6744-91-30 10:37:007.5[facility] ZvagrrrSYZBOPXPND3177-18-86 10:37:00 Test Item Value Reference Range Interpretation Comments PT (test code = PT) 12.8 s 12.0-14.7 [facility] WshmgykBVIFFYHWXF6204-46-95 10:37:00 Test Item Value Reference Range Interpretation Comments INR (test code = INR) 0.97 1 0.85-1.17 [facility] WbhenxnZJWCXAUURU2512-61-38 10:37:00 Test Item Value Reference Range Interpretation Comments PTT (test code = PTT) 25.0 s 22.9-35.8 [facility] WnpxmnsLFMEJHPNUP3999-83-69 10:37:0070.5[facility] HermannHEMATOLOGY 2020-08-29 10:37:0018.8[facility] AdyhwvvUYPKSJNCCU9101-08-34 10:37:009.5[facility] YosbtucHCZFANOUTM5498-60-57 10:37:000.9[facility] FewragsYEZNDNIDCD9488-72-96 10:37:000.3[facility] OsepnonAVZCGAZYUL9954-72-37 10:37:004.8[facility] NUTDUPIINI8307-47-98 10:37:001.3[facility] NdwtvifNUPGQCHNWH8275-04-14 10:37:000.6 [facility] OmdqgzxPWYZTNNZOQ4381-32-37 10:37:000.1[facility] HermannHEMATOLOGY 2020-08-29 10:37:001+ *ABN*(08/29/20 5:37 AM)[facility] DwpbtxlRKWFFBKTMB8402-10-59 10:37:00Not Detected (08/29/20 5:37 AM)[facility] HermannBLOOD BANK RESULTS 2020-08-29 10:37:00Negative (08/29/20 5:37 AM)[facility] HermannCHEM NWICS3159-76-82 10:37:85595Kzoohwln HermannCHEM PATFT9246-29-04 10:37:0028[facility] HermannCHEM WKUDZ5812-99-72 10:37:001.01[facility] HermannCHEM BRVCK4592-94-40 10:37:59832 [facility] HermannCHEM JBTXG0943-47-71 10:37:003.8[facility] HermannCHEM PANEL 2020-08-29 10:37:26983Wsllzykj HermannCHEM RBOOL9510-50-74 10:37:0028[facility] HermannCHEM MCUTR5116-96-02 10:37:009.8[facility] HermannCHEM ZDVRR6401-19-54 10:37:0011.8[facility] HermannCHEM ELIYH2232-85-35 10:37:0059[facility] HermannCHEM MSDFO4232-36-49 10:37:002.9[facility] SumvilmZGWDKHHHWF6114-37-24 10:37:006.8 [facility] RhatxmaCWKVUFXENU1323-86-14 10:37:004.47[facility] HermannHEMATOLOGY 2020-08-29 10:37:0010.6[facility] ElaomyqAHTKAWWWKX3369-04-17 10:37:0034.0[facility] HwknxtiVHGAWVUJXS7813-29-02 10:37:0076.1[facility] DvnubqpUSYLOJDCKD8334-85-14 10:37:00 Test Item Value Reference Range Interpretation Comments MCH (test code = MCH) 23.8 pg 27.0-31.0 [facility] FldjdzgHZYOEESCYL3734-34-93 10:37:0031.3[facility] HermannHEMATOLOGY 2020-08-29 10:37:0018.2[facility] TwjuxkyUGPASSUUUK2633-15-57 10:37:41118Qhmbdjzd ZjtvdciTULLIRBKHI6380-77-55 10:37:007.5[facility] LwxoiaaBVYTHXMGKG1683-14-55 10:37:00 Test Item Value Reference Range Interpretation Comments PT (test code = PT) 12.8 s 12.0-14.7 [facility] IpqpzpzIIBSFBSVJT3123-80-82 10:37:00 Test Item Value Reference Range Interpretation Comments INR (test code = INR) 0.97 1 0.85-1.17 [facility] XrulgvlVKKCSUQXDG3595-67-51 10:37:00 Test Item Value Reference Range Interpretation Comments PTT (test code = PTT) 25.0 s 22.9-35.8 [facility] EcxrpibHTBPWJWXNX8713-66-07 10:37:0070.5[facility] HermannHEMATOLOGY 2020-08-29 10:37:0018.8[facility] QbtqzvhMLHNVSDPFK6403-28-18 10:37:009.5[facility] KbtcyrjOQZMWDBRDO2167-96-38 10:37:000.9[facility] GkfmcbrCQCBJLAGOQ6770-35-39 10:37:000.3[facility] GuyjfaaTIBHITVQZQ7778-48-43 10:37:004.8[facility] NTLSGWZFJE4867-61-47 10:37:001.3[facility] GwhyqtkVXBRMMKXVM3672-51-14 10:37:000.6 [facility] TginpphLIZJRNRCKN3318-70-73 10:37:000.1[facility] HermannHEMATOLOGY 2020-08-29 10:37:001+ *ABN*(08/29/20 5:37 AM)[facility] XzbmkfhOYXBCBHFGI4212-55-95 10:37:00Not Detected (08/29/20 5:37 AM)[facility] HermannBLOOD BANK RESULTS 2020-08-29 10:37:00Negative (08/29/20 5:37 AM)[facility] HermannCHEM FVQXN9570-99-56 10:37:55760Ewitabns HermannCHEM EIMYH0647-36-12 10:37:0028[facility] HermannCHEM MSHSN2380-52-44 10:37:001.01[facility] HermannCHEM CRBUN6136-84-13 10:37:35074 [facility]annCHEM VDBHF2435-77-60 10:37:003.8[facility] HermannCHEM PANEL 2020-08-29 10:37:54035Qgintkue HermannCHEM ZZXWE0949-80-70 10:37:0028[facility] HermannCHEM NHVNN7142-92-04 10:37:009.8[facility] HermannCHEM THVHJ9419-46-83 10:37:0011.8[facility] HermannCHEM HQTXE9069-03-52 10:37:0059[facility] HermannCHEM LDPVV6109-61-38 10:37:002.9[facility] ZittzykHQWTCYLYEA8134-05-00 10:37:006.8 [facility] BdqmvmmZRFENRNPJG9057-88-51 10:37:004.47[facility] HermannHEMATOLOGY 2020-08-29 10:37:0010.6[facility] BrarjevIQHBKAJCJJ3057-92-82 10:37:0034.0[facility] OigskxtSWWXJIWKXS1391-36-69 10:37:0076.1[facility] HgsxxubSGOROHEXHN2778-78-31 10:37:00 Test Item Value Reference Range Interpretation Comments MCH (test code = MCH) 23.8 pg 27.0-31.0 [facility] FthonmcLWYWOECKZA5137-42-16 10:37:0031.3[facility] HermannHEMATOLOGY 2020-08-29 10:37:0018.2[facility] UkouighYJULJKEPSS8016-74-57 10:37:93624Pwxojxjc TckvnsdGKMKTACUES1383-05-93 10:37:007.5[facility] DpufdtaXSHCVVJQLD5343-55-25 10:37:00 Test Item Value Reference Range Interpretation Comments PT (test code = PT) 12.8 s 12.0-14.7 [facility] DfuaesyUILHASTZPG1070-72-67 10:37:00 Test Item Value Reference Range Interpretation Comments INR (test code = INR) 0.97 1 0.85-1.17 [facility] IpxjhrsJBWYIGOWLL1602-55-03 10:37:00 Test Item Value Reference Range Interpretation Comments PTT (test code = PTT) 25.0 s 22.9-35.8 [facility] TsxrftgRPOBQUDDWW3618-62-28 10:37:0070.5[facility] HermannHEMATOLOGY 2020-08-29 10:37:0018.8[facility] SttrfomWUAOKYERAJ7296-09-21 10:37:009.5[facility] IyzwukuSRWLWZTAQI8847-86-66 10:37:000.9[facility] MieitifAACBVWNCRN6110-48-73 10:37:000.3[facility] EhnrsrrNJMGKBPLZZ2368-78-27 10:37:004.8[facility] GEGUZHGTVQ3683-86-19 10:37:001.3[facility] EojqsnsBMYINDGKZV4071-28-18 10:37:000.6 [facility] ZdrkntwKCTUMEATEX4922-73-18 10:37:000.1[facility] HermannHEMATOLOGY 2020-08-29 10:37:001+ *ABN*(08/29/20 5:37 AM)[facility] EdzkpdtOFGNKHDRGL5786-30-37 10:37:00Not Detected (08/29/20 5:37 AM)[facility] HermannBLOOD BANK RESULTS 2020-08-29 10:37:00Negative (08/29/20 5:37 AM)[facility] HermannCHEM LRAWW1144-14-93 10:37:72218Hbmurhuq HermannCHEM TMPTC6932-97-32 10:37:0028[facility] HermannCHEM PINXL0723-57-55 10:37:001.01[facility] HermannCHEM AAGHG6624-26-38 10:37:53743 [facility]annCHEM XCFRI1175-61-83 10:37:003.8[facility] HermannCHEM PANEL 2020-08-29 10:37:06858Jopewvjl HermannCHEM OMHRE1991-08-97 10:37:0028[facility] HermannCHEM LUFVC9608-84-93 10:37:009.8[facility] HermannCHEM WLATG7360-19-63 10:37:0011.8[facility] HermannCHEM YLBHG9078-16-17 10:37:0059[facility] HermannCHEM XZEVO9054-94-01 10:37:002.9[facility] YtbpuhuOBDDCFLODV1729-02-15 10:37:006.8 [facility] FtpcnqeQWWSYGKODK8025-78-03 10:37:004.47[facility] HermannHEMATOLOGY 2020-08-29 10:37:0010.6[facility] QwifffnLYLSGRGTUB7554-46-75 10:37:0034.0[facility] KtcwlwzIRXXPHHSRZ9300-14-13 10:37:0076.1[facility] XbnxwjrUMCNZOTWSN9920-72-75 10:37:00 Test Item Value Reference Range Interpretation Comments MCH (test code = MCH) 23.8 pg 27.0-31.0 [facility] ZubopqoLEQZIVMLGW6529-31-36 10:37:0031.3[facility] HermannHEMATOLOGY 2020-08-29 10:37:0018.2[facility] TierajhPNEGWHNKAE2611-70-18 10:37:70651Kpsunbog KderkakMCWOVKBMJC6811-81-41 10:37:007.5[facility] DkxgcgaPNCWOICQRL2603-34-66 10:37:00 Test Item Value Reference Range Interpretation Comments PT (test code = PT) 12.8 s 12.0-14.7 [facility] NrrfddoDYPAGYGEUL7220-23-84 10:37:00 Test Item Value Reference Range Interpretation Comments INR (test code = INR) 0.97 1 0.85-1.17 [facility] CbhaqxsYVWCIUHKFY7974-72-22 10:37:00 Test Item Value Reference Range Interpretation Comments PTT (test code = PTT) 25.0 s 22.9-35.8 [facility] CpdszmlKICZBQRYPE7672-29-10 10:37:0070.5[facility] HermannHEMATOLOGY 2020-08-29 10:37:0018.8[facility] AqvffjuFYQVVSNWGN8489-25-51 10:37:009.5[facility] RbfwkuvZYBMMXTCHT1050-30-52 10:37:000.9[facility] JveficfBMBEUNZDHY0942-42-25 10:37:000.3[facility] QfsejawMBOUWYXFGI6619-10-32 10:37:004.8[facility] OAGOROKXIW0774-85-07 10:37:001.3[facility] GgdianfUQOMYHZISI4087-19-75 10:37:000.6 [facility] DesdeehHCVRAHPWEM6541-78-55 10:37:000.1[facility] HermannHEMATOLOGY 2020-08-29 10:37:001+ *ABN*(08/29/20 5:37 AM)[facility] IoaztolLBOANMRLYG7996-94-02 10:37:00Not Detected (08/29/20 5:37 AM)[facility] HermannBLOOD BANK RESULTS 2020-08-29 10:37:00Negative (08/29/20 5:37 AM)[facility] HermannCHEM PFZQY3763-46-05 10:37:53515Qrxxdeoa HermannCHEM YDINY2602-30-30 10:37:0028[facility] HermannCHEM FBBAW0981-61-53 10:37:001.01[facility] HermannCHEM BKRVL5505-14-24 10:37:10962 [facility] HermannCHEM KXKLW8172-30-61 10:37:003.8[facility] HermannCHEM PANEL 2020-08-29 10:37:25802Skmgeohi HermannCHEM TNYGU0699-62-39 10:37:0028[facility] HermannCHEM QDLBL8611-80-22 10:37:009.8[facility] HermannCHEM GVLGU3833-29-05 10:37:0011.8[facility] HermannCHEM LMFIE9049-87-25 10:37:0059[facility] HermannCHEM ROUPY8594-45-03 10:37:002.9[facility] XogxyajKWCSQKHKVO9262-31-30 10:37:006.8 [facility] OjgdpefDZTTDLOQPG8477-59-05 10:37:004.47[facility] HermannHEMATOLOGY 2020-08-29 10:37:0010.6[facility] QeguaouCFDOELYOTV0552-31-22 10:37:0034.0[facility] HkqrzdpSCSUGLLSPF8474-09-23 10:37:0076.1[facility] WwbqhfmLNAKRBSDIK5385-34-44 10:37:00 Test Item Value Reference Range Interpretation Comments MCH (test code = MCH) 23.8 pg 27.0-31.0 [facility] BxfsxvxHCAWGGRLDY1960-76-88 10:37:0031.3[facility] HermannHEMATOLOGY 2020-08-29 10:37:0018.2[facility] FbcqxljGQKVUZMJAG4626-24-24 10:37:44514Amqnnhhb PxxirzeVEVXJGWVYQ3739-88-99 10:37:007.5[facility] VnzyszrJAYLFEIDCV0791-78-85 10:37:00 Test Item Value Reference Range Interpretation Comments PT (test code = PT) 12.8 s 12.0-14.7 [facility] DoejzkoIWPMCTBRMF7243-58-75 10:37:00 Test Item Value Reference Range Interpretation Comments INR (test code = INR) 0.97 1 0.85-1.17 [facility] QhbhbyeQBEHSISCTW2209-53-21 10:37:00 Test Item Value Reference Range Interpretation Comments PTT (test code = PTT) 25.0 s 22.9-35.8 [facility] RlqxiztOSJOZSUVCY6497-52-85 10:37:0070.5[facility] HermannHEMATOLOGY 2020-08-29 10:37:0018.8[facility] GuamqbyATVQQFPSKO1055-03-80 10:37:009.5[facility] BzljtapZJTVBBTJDB3559-41-10 10:37:000.9[facility] PmbotyaYUBVRNQOSD3536-07-98 10:37:000.3[facility] ZlgzhxqBECWODYJLC2057-08-19 10:37:004.8[facility] OSFPLKKVIH6011-47-08 10:37:001.3[facility] OljkxaaRPIIKPYKDE9699-63-84 10:37:000.6 [facility] GanvqneFSOIUHPRHK0205-47-34 10:37:000.1[facility] HermannHEMATOLOGY 2020-08-29 10:37:001+ *ABN*(08/29/20 5:37 AM)[facility] PltiujyTKWKDSJDCZ9923-02-75 10:37:00Not Detected (08/29/20 5:37 AM)[facility], GC, TV,PCR, IN BPDHP9217-09-96 15:38:00 Test Item Value Reference Range Interpretation Comments FT (test code = CHTR) Not detected (qualifier Not Detected N value) FT (test code = Not detected (qualifier Not Detected N NGONO) value) FT (test code = TRVG) Not detected (qualifier Not Detected N value) [facility] WITH NDZMUEZKDVC8028-71-84 10:57:00 Test Item Value Reference Range Interpretation Comments Color (test code = UCOLR) Dk. Yellow Clarity (test code = UCLAR) Hazy Glucose (test code = UGLUC) NEGATIVE NEGATIVE N Bilirubin (test code = UBILI) NEGATIVE NEGATIVE N Ketones (test code = UKET) NEGATIVE NEGATIVE N Specific [place] (test code = 1.025 1.005-1.030 A USPGR) [...]
--- NOTE | 2022-08-11 15:02 | EDPHYS ---
Physician Documentation [facility] Name: Marjan Kolb Age: 67 yrs Sex: Female : 1955 Arrival Date: 08/11/2022 Time: 12:04 Bed IW1 Private MD: Lele Rahman H ED Physician Howard Samaniego HPI: 08/11 15:01 This 67 yrs old Female presents to ER via Wheelchair with complaints of Fall Injury. rt 15:01 Patient was seen multiple times in the ED for pain related complaints presents to the rt ED with a second fall, landing onto her left ribs. She reports pain to that region. She was seen in the ED for a same complaint recently. She had negative work-up at that time. Pain is aching nature, nonradiating, no other aggravating alleviating factors. Symptoms are mild in severity.. Historical: - Allergies: 12:35 Azithromycin; ap3 12:35 Bactrim; ap3 12:35 butorphanol; ap3 12:35 Fentanyl; ap3 12:35 Reglan; ap3 12:35 Sulfa (Sulfonamide Antibiotics); ap3 12:35 TRIMETHOPRIM; ap3 - PMHx: 12:35 Anxiety; Atrial fibrillation; Bipolar disorder; esophageal varicies; Hepatitis; HIV ap3 positive; Hypertensive disorder; Migraine; panic attack; - Immunization history:: Client reports receiving the 2nd dose of the Covid vaccine, Flu vaccine is up to date. - Social history:: Smoking status: Patient denies any tobacco usage or history of. - Family history:: not pertinent. ROS: 15:01 Constitutional: Negative for fever, chills, and weight loss, Respiratory: Negative for rt shortness of breath, cough, wheezing, and pleuritic chest pain, Abdomen/GI: Negative for abdominal pain, nausea, vomiting, diarrhea, and constipation, MS/Extremity: Negative for injury and deformity, Skin: Negative for injury, rash, and discoloration, Neuro: Negative for headache, weakness, numbness, tingling, and seizure, Psych: Negative for depression, anxiety, suicide ideation, homicidal ideation, and hallucinations. Exam: 15:01 Constitutional: This is a well developed, well nourished patient who is awake, alert, rt and in no acute distress. Head/Face: Normocephalic, atraumatic. Cardiovascular: Regular rate and rhythm with a normal S1 and S2. No gallops, murmurs, or rubs. Normal PMI, no JVD. No pulse deficits. Respiratory: Lungs have equal breath sounds bilaterally, clear to auscultation and percussion. No rales, rhonchi or wheezes noted. No increased work of breathing, no retractions or nasal flaring. Skin: Warm, dry with normal turgor. Normal color with no rashes, no lesions, and no evidence of cellulitis. MS/ Extremity: Pulses equal, no cyanosis. Neurovascular intact. Full, normal range of motion. Neuro: Awake and alert, GCS 15, oriented to person, place, time, and situation. Cranial nerves II-XII grossly intact. Motor strength 5/5 in all extremities. Sensory grossly intact. Cerebellar exam normal. Normal gait. Psych: Awake, alert, with orientation to person, place and time. Behavior, mood, and affect are within normal limits. 15:01 Chest/axilla: Old appearing bruising to the left ribs, tenderness at that region, no crepitus felt.. 15:01 Abdomen/GI: Old appearing bruises to the abdominal wall, no distention, mild tenderness diffusely.. Vital Signs: 12:34 BP 189 / 92; Pulse 71; Resp 18; Temp 98.8; Pulse Ox 97% ; Weight 80.74 kg; Height 5 ft. ap3 4 in. ; Pain 10/10; 12:34 Body Mass Index 30.55 (80.74 kg, 162.56 cm) ap3 12:34 Pain Scale: Adult ap3 MDM: 12:39 Patient medically screened. rt 15:01 Differential diagnosis: Rib fracture, pneumothorax, contusion. Data reviewed: vital rt signs, nurses notes. I considered the following discharge prescriptions or medication management in the emergency department Medications were administered in the Emergency Department. See MAR. Test considered but Not performed: CT: Patient with innumerable CAT scans, do not believe that further radiation is worth the risk given low suspicion for intra-abdominal injury.. ED course: Patient presents to the ED with a chest wall pain from a fall. She has frequent falls, denies any syncopal event. X-ray of the ribs were ordered, patient refused this along with Toradol. Patient was informed that she would not be receiving opiates, she left from the waiting room before work-up could be done or before I could have further discussion with the patient.. Administered Medications: 13:53 Not Given (Patient Refused): Ketorolac IM 15 mg IM once ss Disposition Summary: 08/11/22 15:01 Discharge Ordered Location: Home rt Problem: an ongoing problem rt Condition: Stable rt Diagnosis - Chest wall contusion rt Followup: rt - With: Private Physician - When: 2 - 3 days - Reason: Forms: - Medication Reconciliation Form rt - Thank You Letter rt - Antibiotic Education rt - Prescription Opioid Use rt Signatures: Dispatcher [employer] EDDanielle Jameson RN RN ap3 Howard Samaniego MD MD rt Sandra Cadet RN ss Corrections: (The following items were deleted from the chart) 13:39 12:42 Ribs Left+RAD.RAD.BRZ ordered. EDMS EDMS
--- NOTE | 2022-08-11 15:02 | ER ---
Nurse's Notes [facility] Name: Marjan Kolb Age: 67 yrs Sex: Female : 1955 Arrival Date: 08/11/2022 Time: 12:04 Bed IW1 Private MD: Lele Rahman H Diagnosis: Chest wall contusion Presentation: 08/11 12:34 Chief complaint: Patient states: she fell a week ago on her left side bruising her ap3 ribs. patient reports falling again last night on the same side and is reporting increased pain to the left ribs. patient reports pain 10/10 on the pain scale. Coronavirus screen: At this time, the client does not indicate any symptoms associated with coronavirus-19. Ebola Screen: No symptoms or risks identified at this time. Initial Sepsis Screen: Does the patient meet any 2 criteria? No. Patient's initial sepsis screen is negative. Does the patient have a suspected source of infection? No. Patient's initial sepsis screen is negative. Risk Assessment: Do you want to hurt yourself or someone else? Patient reports no desire to harm self or others. Onset of symptoms was August 10, 2022. 12:34 Method Of Arrival: Wheelchair ap3 12:34 Acuity: BLAYNE 3 ap3 Triage Assessment: 12:36 General: Appears in no apparent distress. Behavior is calm, cooperative. Pain: ap3 Complains of pain in left rib area. Historical: - Allergies: 12:35 Azithromycin; ap3 12:35 Bactrim; ap3 12:35 butorphanol; ap3 12:35 Fentanyl; ap3 12:35 Reglan; ap3 12:35 Sulfa (Sulfonamide Antibiotics); ap3 12:35 TRIMETHOPRIM; ap3 - PMHx: 12:35 Anxiety; Atrial fibrillation; Bipolar disorder; esophageal varicies; Hepatitis; HIV ap3 positive; Hypertensive disorder; Migraine; panic attack; - Immunization history:: Client reports receiving the 2nd dose of the Covid vaccine, Flu vaccine is up to date. - Social history:: Smoking status: Patient denies any tobacco usage or history of. - Family history:: not pertinent. Screenin:37 [facility] ED Fall Risk Assessment (Adult) History of falling in the last 3 months, ap3 including since admission Yes- fall prone (multiple falls) (3 pts). Abuse screen: Denies threats or abuse. Nutritional screening: No deficits noted. Tuberculosis screening: No symptoms or risk factors identified. Assessment: 13:53 Reassessment: PT refusing XRAY and Toradol injection. Pt states, "that's just like ss taking Tylenol and if I did have a fracture, I'm sure I would be now." PT verbalizes understanding risks involved with refusing XRAY, but still is refusing imaging. Dr. Samaniego notified. 14:58 Reassessment: attempted to bring patient to ER room. No answer. Unable to locate ss patient. Dr. Samaniego notified. Vital Signs: 12:34 BP 189 / 92; Pulse 71; Resp 18; Temp 98.8; Pulse Ox 97% ; Weight 80.74 kg; Height 5 ft. ap3 4 in. ; Pain 10/10; 12:34 Body Mass Index 30.55 (80.74 kg, 162.56 cm) ap3 12:34 Pain Scale: Adult ap3 ED Course: 12:04 Patient arrived in ED. mr 12:04 Lele Rahman DO is Private Physician. mr 12:35 Triage completed. ap3 12:37 Arm band placed on left wrist. ap3 12:39 Howard Samaniego MD is Attending Physician. rt 15:00 No provider procedures requiring assistance completed. Patient did not have IV access ss during this emergency room visit. Administered Medications: 13:53 Not Given (Patient Refused): Ketorolac IM 15 mg IM once ss Medication: 13:53 VIS not applicable for this client. ss Outcome: 15:01 Discharge ordered by . rt 15:03 Discharged to home Pt left prior to receiving instructions ss 15:04 Patient left the ED. ss Signatures: Sergio Jessie CadetSandra, RN RN ss Danielle Arango RN RN ap3 Howard Samaniego MD MD rt Corrections: (The following items were deleted from the chart) 12:37 12:34 Chief complaint: Patient states: she fell a week ago on her right side bruising ap3 her ribs. patient reports falling again last night on the same side and is reporting increased pain to the right ribs. patient reports pain 10/10 on the pain scale. ap3
[2022-08-11 15:43] VITALS: BP 189/92; TEMP 98.8; O2SAT 97
== END 2022-08-11 15:04 | disposition home or self-care (01) ==
LOC: ER 11:59
DX: S20.212A Contusion of left front wall of thorax, initial encounter (principal); I10 Essential (primary) hypertension; Z21 Asymptomatic human immunodeficiency virus [HIV] infection status; Z88.1 Allergy status to other antibiotic agents; Z88.2 Allergy status to sulfonamides; Z88.3 Allergy status to other anti-infective agents; Z88.5 Allergy status to narcotic agent; Z88.8 Allergy status to other drugs, medicaments and biological substances

== ENCOUNTER 2022-09-19 21:15 | Emergency (ER) | payer OTHER ==
--- OUTSIDE RECORDS SUMMARY | 2022-09-19 21:47 | XMS REPORT | Continuity of Care Document ---
:1955 Author Organization [facility] t Address [address] [facility] [address] [place] [address] Care Team Providers Name Role Phone Urmila [...] Clinician [facility] Attending Clinician Unavailable Isaisa Whiteside RN Attending Clinician Unavailable TOMY MARIE Attending Clinician Unavailable Reilly Means MD Attending Clinician Ofe Shields MD Attending Clinician Tomy Marie MD Attending Clinician Doctor Unassigned, [place] Attending Clinician Unavailable Bill COLES Attending Clinician Unavailable Bill Rose Attending Clinician CHARITY MCALLISTER Attending Clinician Unavailable Charity Mcallister MD Attending Clinician GADIEL KOEHLER Attending Clinician Unavailable Mike Lund Attending Clinician Unavailable NIKOLAI REEVES Attending Clinician Unavailable Eliseo Arce MD Attending Clinician Carol Ann IZQUIERDO, Sarai Lieberman Attending Clinician [phone] Ashly Pelletier MA Attending Clinician Unavailable Dagoberto Bass MD Attending Clinician [place] Evangelista Attending Clinician Lab, [facility] Pob I Attending Clinician Unavailable Monica Rodas MA Attending Clinician Unavailable Agustina Ortiz MA Attending Clinician Unavailable Rody Maguire RN Attending Clinician Unavailable Remigio MD, Saraswathi V. Attending Clinician HEMATPOUR, BEVERLY Attending Clinician Unavailable Caridad HUITRONP, Gloria Attending Clinician Xiao RAMIREZ, Michael Corbin Attending Clinician Unavailable Team, [facility] Attending Clinician UnavailDO PORSHA Newell Attending Clinician Unavailable Gadiel Koehler MD Attending Clinician Tyrone JENKINS, Eveline Sierra Attending Clinician Eladio Colorado RN Attending Clinician Unavailable Geraldine SALGUERO, Leyda Attending Clinician [phone] Selvin RAMIREZ, Stefanie Attending Clinician Unavailable [...] Policy Number Effective Date Expiration Date S ource [facility] COMMUNITY PLAN [id number] 2012 STAR PLUS OON 00:00:00 [facility] [id number] 2019 DUAL COMPLETE HMO 00:00:00 [facility] STAR [id number] 2019 PLUS 00:00:00 MEDICAID [facility] [id number] 2020 00:00:00 [facility] [id number] 2019 [facility] [place] STAR 00:00:00 [employer] MEDICARE ADV [id number] 2019 2019 00:00:00 00:00:00 Problems Condition Condition Condition Status Onset Resolution Last Treating Co mments Source Name Details Category Date Date Treatment Clinician Date Dyspnea, Dyspnea, Disease Active Unive rs unspecifie unspecifie 02-11 it y of d type d type 00:00: [address] Branch Gastropare Gastropare Disease Active Overview : Methodi sis sis 4-[address] 00:00: [facility] note l might be different from the original. Added automatic ally from request for surgery [id number] Dysphagia Dysphagia Disease Active Overview: Methodi 4-[address] 00:00: [facility] 00 note l might be different from the original. Added automatic ally from request for surgery [id number] CCL / EPS CCL / Diagnosis Active 2020-10-15 Memoria PVI EPS PVI 3-30 17:07:00 l ABLATION ABLATION 00:00: Patel n W/ CARTO / W/ CARTO / 00 GA / T GA / T Active 08/19/2020 [facility] Food Food Disease Active 2019-05 [...] N/V [facility] hoxazole - Clear 00:00: [facility] trimetho DA Active SV [facility] prim - Clear 00:00: [facility] codeine DA Active SV N/V HCA - Clear 00:00: [facility] Metoclop Propensi Active [place] ramide ty to 12-12 Health adverse 00:00: reaction 00 s BUTORPHA DRUG Active Unknown-Cmnt Un matt NOL INGREDI 11-25 ity of 00:00: Medical Branch Butorpha Drug Active Unknown - Unive rs nol Allergy See comments 11-25 ity of 00:00: [facility] Branch Sulfamet Propensi Active [place] hoxazole ty [...] FENTANYL DRUG Active High Hives Univers INGREDI 208 ity of 00:00: 00 Medical Branch TRIMETHO DRUG Active Hives Univers PRIM INGREDI 2-08 ity of 00:00: [place] 00 Medical Branch Fentanyl Drug Active Other - See Unknown Un matt Allergy comments 2-08 reaction ity o f 00:00: [place] 00 Medical Branch Trimetho Propensi Active Hives 0 Univer s [...] Uni vers ramide ty to See comments - ity of adverse 00:00: [place] reaction 00 Medical s Branch SULFAMET DRUG Active High Unknown-Cmnt 2015-05 Un matt HOXAZOLE INGREDI 2-02 ity of 00:00: [place] 00 Medical Branch Sulfamet Propensi Active Other - See 2015-05 Stomach Univers hoxazole ty to comments 06-24 pain ity of adverse 00:00: [place] reaction 00 Medical s Branch Sulfamet Propensi Active Rash 2015-05 Method i hoxazole ty to -02 st adverse 00:00: Hospita reaction 00 l [...] Branch drug Bactrim Bactrim Active [facility] [place] Family History Family Member Diagnosis Comments Start Date Stop Date Source Natural father Diabetes [facility] Natural father Other - see comments [facility] Natural [facility] Hy[facility] father [facility] Natural mother [facility] Social History Social Habit Start Date Stop Date Quantity Comments Source Gender identity 2020-10-06 Identifies as Method ist 15:23:56 female gender Hospital (finding) History SDOH Yazidism Alcohol Frequency Hospita l History SDOH Y[facility]ism Alcohol Std Drinks Hospit al History SDOH [facility] Alcohol Binge Hospital Sexual orientation [facility] History of Social 2022-08-26 2022-08-[address] function 00:00:00 00:00:00 Hospital Exposure to 2022-04-30 2022-05-10 Yes University of SARS-CoV-2 (event) 00:00:00 10:25:00 [facility] Tobacco use and 2022-02-11 2022-02-11 Former smokeless Uni versity of exposure 00:00:00 00:00:[address] [facility] Tobacco Comment 2022-02-11 2022-02-11 Smokes approx 1-2 Un iversity of 00:00:00 00:00:00 cigarettes per [facility] day when she Branch smokes Alcohol intake 2020-12-08 2020-12-08 Current drinker [facility] dist 00:00:00 00:00:00 of [facility] (finding) Cigarettes smoked 2020-09-05 2020-09-[address] current (pack per 00:00:00 00:00:00 [facility] l day) - Reported Cigarette 2020-09-05 2020-09-05 Yazidism pack-years 00:00:00 00:00:00 Hospital Alcohol Comment 2016-09-23 2016-09-23 rare Y[facility]idism 00:00:00 00:00:00 Hospital History of tobacco 2011-09-29 User of smokeless University of use 00:00:00 tobacco [facility] Sex Ass[birth year] At [birth year] [facility] 00:00:00 00:00:00 Smoking Status Start Date Stop Date Source Ex-smoker 2022-02-11 00:00:2022-02-11 00:00:00 Universi ty of [facility] Medications Ordered Filled Start Stop Current Ordering Indication Dosage Frequency Signature Comments Components Source Medication Medication Date Date Medication? Clinician (SIG) Name Name ravindra Yes [id number] Take one Univers ne-tenofovi 4-04 po daily ity of r alafen 00:00: [place] (DESCOVY) 00 Medical tablet Branch emtricbao Yes [id number] Take one Univers ne-tenofovi 4-04 po daily ity of r alafen 00:00: [place] (DESCOVY) 00 Medical tablet Branch potassium 2021-05 No 10meq 10 mEq, IV Univers chloride in 07-11 Piggyback, i ty of water 10 20:00: 22:00 ONCE, 1 [place] mEq/100 mL 00 :00 dose, On Medic al RTU 10 mEq [facility] 05/10/22 at 1400, Administer over 60 Minutes, 100 mL magnesium 2021-05 No 800mg 800 mg, Uni vers oxide 07-11 Oral, ity of (MAG-OX 20:00: 19:37 ONCE, 1 [place] 400) tablet 00 :00 dose, On Medi porfirio 800 mg [facility] 05/10/22 at 1400, Routine KCL 2021-05 No 40meq 40 mEq, Univers (KLOR-CON 07-11 Oral, ity of M20) tablet 19:15: 19:37 [place]CE[place] 1 [place] 40 mEq 00 :00 dose, On Medical [facility] 05/10/22 at 1315, JOE hydralAZINE 2021-05 No 10mg 10 mg, Uni vers (APRESOLINE 07-11 Slow IV ity of ) injection 18:45: 18:42 [place] 10 mg 00 :00 ONCE, 1 Medical dose, On Branch [facility] 05/10/22 at 1245, JOE NaCl 0.9% 2021-05 No 1000mL at 999 Uni vers (NS) bolus 07-11 mL/hr, ity of infusion 17:45: 20:00 1,000 mL, [place] 1,000 mL 00 :00 IV Medical Infusion, Branch ONCE, 1 dose, On [facility] 12/19/22 at 1145, JOE cefpodoxime 2021-05- No [id number] 100mg Take 1 Univers 100 mg 2-17 12-25 tablet by ity of tablet 00:00: 05:59 mouth in [place] 00 :00 the Medical morning Branch and 1 tablet in the evening. Do all this for 7 days. cefpodoxime 2021-05- No [id number] 100mg Take 1 Univers 100 mg 2-17 12-25 tablet by ity of tablet 00:00: 05:59 mouth in [place] 00 :00 the [facility] morning Branch and 1 tablet in the evening. Do all this for 7 days. cefpodoxime 2021-05- No [id number] 100mg Take 1 Univers 100 mg 2-17 12-25 tablet by ity of tablet 00:00: 05:59 mouth in [place] 00 :00 the [facility] morning Branch and 1 tablet in the evening. Do all this for 7 days. butalbital- 2021-05- No 1{tbl} 1 tablet, Univers acetaminoph 2-16 12-15 Oral, ity of en-caff 00:15: 23:19 ONCE, 1 [place] (ESGIC) 00 :00 dose, On Medical 50-325-40 [place] Branch mg tablet 1 05/06/22 tablet at 1815, JOE NaCl 0.9% 2021-05 No 500mL at 999 Univ ers (NS) bolus 2-16 12-16 mL/hr, 500 it y of infusion 00:00: 00:17 mL, IV [place] 500 mL 00 :00 Infusion, Medical ONCE, 1 Branch dose, On [facility] 05/06/22 at 1800, JOE ketorolac 2021-05 No 15mg 15 mg, Unive rs (TORADOL) 2-15 12-15 Slow IV ity of injection 22:00: 22:19 Push, [place] 15 mg 00 :00 ONCE, 1 Medical dose, On Branch [facility] 05/06/22 at 1600, JOE NaCl 0.9% 2021-05- No 1000mL at 999 Uni vers (NS) bolus 2-15 12-15 mL/hr, ity of infusion 22:00: 23:41 1,000 mL, [place] 1,000 mL 00 :00 IV Medical Infusion, Branch ONCE, 1 dose, On [place] 05/06/22 at 1600, JOE ondansetron 2021-052- No 8mg 8 mg, Slow Univers (ZOFRAN 2-15 12-15 IV Push, ity of (PF)) 21:15: 22:19 ONCE, 1 [place] injection 8 00 :00 dose, On Medi porfirio mg [place] Branch 05/06/22 at 1515, JOE ondansetron 2021- Yes [id number] 1-2 U nivers 4 mg tablet 2-15 tablets ity o f 00:00: every 8 [place] 00 hours as Medical needed for Branch nausea benzonatate 2021-05 Yes [id number] 200mg Take 1 Univers 200 mg 2-15 capsule by ity of capsule 00:00: mouth 3 [place] 00 (three) Medical times Branch daily as needed for Cough. albuterol 2021-05 Yes [id number] 2{puff} Inhale 2 Univers 90 2-15 Puffs ity of mcg/actuati 00:00: every 4 [place] on inhaler 00 (four) Medical hours as Branch needed for Wheezing or Shortness of Breath. butalbital- 2021-05 Yes [id number] 1{tbl} Take 1 Univers acetaminoph 2-15 tablet by ity of en-caff 00:00: mouth [place] 50-325-40 00 every 4 Medical mg tablet (four) Branch hours as needed (headache) . ondansetron 2021-05 Yes [id number] 1-2 U nivers 4 mg tablet 2-15 tablets ity o f 00:00: every 8 [place] 00 hours as Medical needed for Branch nausea benzonatate 2021-05 Yes [id number] 200mg Take 1 Univers 200 mg 2-15 capsule by ity of capsule 00:00: mouth 3 [place] 00 (three) Medical times Branch daily as needed for Cough. albuterol 2021-05 Yes [id number] 2{puff} Inhale 2 Univers 90 2-15 Puffs ity of mcg/actuati 00:00: every 4 [place] on inhaler 00 (four) Medical hours as Branch needed for Wheezing or Shortness of Breath. butalbital- 2021-05 Yes [id number] 1{tbl} Take 1 Univers acetaminoph 2-15 tablet by ity of en-caff 00:00: mouth [place] 50-325-40 00 every 4 Medical mg tablet (four) Branch hours as needed (headache) . ondansetron 2021-05 Yes [id number] 1-2 U nivers 4 mg tablet 2-15 tablets ity o f 00:00: every 8 [place] 00 hours as Medical needed for Branch nausea benzonatate 2021-05 Yes [id number] 200mg Take 1 Univers 200 mg 2-15 capsule by ity of capsule 00:00: mouth 3 [place] 00 (three) Medical times Branch daily as needed for Cough. albuterol 2021-05 Yes [id number] 2{puff} Inhale 2 Univers 90 2-15 Puffs ity of mcg/actuati 00:00: every 4 [place] on inhaler 00 (four) Medical hours as Branch needed for Wheezing or Shortness of Breath. butalbital- 2021-05 Yes [id number] 1{tbl} Take 1 Univers acetaminoph 2-15 tablet by ity of en-caff 00:00: mouth [place] 50-325-40 00 every 4 Medical mg tablet (four) Branch hours as needed (headache) . ondansetron 2021-05 Yes [id number] 1-2 U nivers 4 mg tablet 2-15 tablets ity o f 00:00: every 8 [place] 00 hours as Medical needed for Branch nausea benzonatate 2021-05 Yes [id number] 200mg Take 1 Univers 200 mg 2-15 capsule by ity of capsule 00:00: mouth 3 00 (three) Medical times Branch daily as needed for Cough. albuterol 2021-05 Yes [id number] 2{puff} Inhale 2 Univers 90 2-15 Puffs ity of mcg/actuati 00:00: every 4 [place] on inhaler 00 (four) Medical hours as Branch needed for Wheezing or Shortness of Breath. butalbital- 2021-05 Yes [id number] 1{tbl} Take 1 Univers acetaminoph 2-15 tablet by ity of en-caff 00:00: mouth [place] 50-325-40 00 every 4 Medical mg tablet (four) Branch hours as needed (headache) . ondansetron 2021-05 Yes [id number] 1-2 U nivers 4 mg tablet 2-15 tablets ity o f 00:00: every 8 [place] 00 hours as Medical needed for Branch nausea benzonatate 2021-05 Yes [id number] 200mg Take 1 Univers 200 mg 2-15 capsule by ity of capsule 00:00: mouth 3 [place] 00 (three) Medical times Branch daily as needed for Cough. albuterol 2021-05 Yes [id number] 2{puff} Inhale 2 Univers 90 2-15 Puffs ity of mcg/actuati 00:00: every 4 [place] on inhaler 00 (four) Medical hours as Branch needed for Wheezing or Shortness of Breath. butalbital- 2021-05 Yes [id number] 1{tbl} Take 1 Univers acetaminoph 2-15 tablet by ity of en-caff 00:00: mouth [place] 50-325-40 00 every 4 Medical mg tablet (four) Branch hours as needed (headache) . ondansetron 2021-05 Yes [id number] 1-2 U nivers 4 mg tablet 2-15 tablets ity o f 00:00: every 8 [place] 00 hours as Medical needed for Branch nausea benzonatate 2021-05 Yes [id number] 200mg Take 1 Univers 200 mg 2-15 capsule by ity of capsule 00:00: mouth 3 00 (three) Medical times Branch daily as needed for Cough. albuterol 2021-05 Yes [id number] 2{puff} Inhale 2 Univers 90 2-15 Puffs ity of mcg/actuati 00:00: every 4 [place] on inhaler 00 (four) Medical hours as Branch needed for Wheezing or Shortness of Breath. butalbital- 2021-05 Yes [id number] 1{tbl} Take 1 Univers acetaminoph 2-15 tablet by ity of en-caff 00:00: mouth [place] 50-325-40 00 every 4 Medical mg tablet (four) Branch hours as needed (headache) . ondansetron 2021-05 Yes [id number] 1-2 U nivers 4 mg tablet 2-15 tablets ity o f 00:00: every 8 [place] 00 hours as Medical needed for Branch nausea benzonatate 2021-05 Yes [id number] 200mg Take 1 Univers 200 mg 2-15 capsule by ity of capsule 00:00: mouth 3 [place] 00 (three) Medical times Branch daily as needed for Cough. albuterol 2021-05 Yes [id number] 2{puff} Inhale 2 Univers 90 2-15 Puffs ity of mcg/actuati 00:00: every 4 [place] on inhaler 00 (four) Medical hours as Branch needed for Wheezing or Shortness of Breath. butalbital- 2021-05 Yes [id number] 1{tbl} Take 1 Univers acetaminoph 2-15 tablet by ity of en-caff 00:00: mouth [place] 50-325-40 00 every 4 Medical mg tablet (four) Branch hours as needed (headache) . ondansetron 2021-05 Yes [id number] 1-2 U nivers 4 mg tablet 2-15 tablets ity o f 00:00: every 8 [place] 00 hours as Medical needed for Branch nausea benzonatate 2021-05 Yes [id number] 200mg Take 1 Univers 200 mg 2-15 capsule by ity of capsule 00:00: mouth 3 [place] 00 (three) Medical times Branch daily as needed for Cough. albuterol 2021-05 Yes [id number] 2{puff} Inhale 2 Univers 90 2-15 Puffs ity of mcg/actuati 00:00: every 4 [place] on inhaler 00 (four) Medical hours as Branch needed for Wheezing or Shortness of Breath. butalbital- 2021-05 Yes [id number] 1{tbl} Take 1 Univers acetaminoph 2-15 tablet by ity of en-caff 00:00: mouth [place] 50-325-40 00 every 4 Medical mg tablet (four) Branch hours as needed (headache) . nirmatrelvi 2021-05- No [id number] 2{tbl} Take 2 Univers r-ritonavir 2-15 12-21 tablets by i ty of (PAXLOVID, 00:00: 05:59 mouth in [place] EUA,) 300 00 :00 the Medical mg (150 mg morning Branch x 2)-100 mg and 2 tablet tablets in the evening. Do all this for 5 days. nirmatrelvi 2021-05- No [id number] 2{tbl} Take 2 Univers r-ritonavir 2-15 12-21 tablets by i ty of (PAXLOVID, 00:00: 05:59 mouth [place] EUA,) 300 00 :00 the Medical mg (150 mg morning Branch x 2)-100 mg and 2 tablet tablets in the evening. Do all this for 5 days. nirmatrelvi 2021-05- No [id number] 2{tbl} Take 2 Univers r-ritonavir 2-15 12-21 tablets by i ty of (PAXLOVID, 00:00: 05:59 mouth [place] EUA,) 300 00 :00 the Medical mg (150 mg morning Branch x 2)-100 mg and 2 tablet tablets in the evening. Do all this for 5 days. nirmatrelvi 2021-05- No [id number] 2{tbl} Take 2 Univers r-ritonavir 2-15 12-21 [...] 04/22/22 at 1645, Routine amoxicillin 2021-05 Yes [id number] 1{tbl} Take 1 Univers -clavulanat 2- [id number] tablet by i ty of e 875-125 00:00: mouth [place] mg per 00 every 12 Medical tablet (twelve) Branch hours. ondansetron 2021-05 Yes [id number] 4mg Take 1 Univers 4 mg 2- [id number] tablet by ity of disintegrat 00:00: mouth [place] ing tablet 00 every 8 Medica l (eight) Branch hours as needed for Nausea and Vomiting (N/V). amoxicillin 2021-05 Yes [id number] 1{tbl} Take 1 Univers -clavulanat 2-01 [id number] tablet by i ty of e 875-125 00:00: mouth [place] mg per 00 every 12 Medical tablet (twelve) Branch hours. ondansetron 2021-05 Yes [id number] 4mg Take 1 Univers 4 mg 2- [id number] tablet by ity of disintegrat 00:00: mouth [place] ing tablet 00 every 8 Medica l (eight) Branch hours as needed for Nausea and Vomiting (N/V). amoxicillin 2021-05 Yes [id number] 1{tbl} Take 1 Univers -clavulanat 2-01 [id number] tablet by i ty of e 875-125 00:00: mouth [place] mg per 00 every 12 Medical tablet (twelve) Branch hours. ondansetron 2021-05 Yes [id number] 4mg Take 1 Univers 4 mg 2-01 [id number] tablet by ity of disintegrat 00:00: mouth [place] ing tablet 00 every 8 Medica l (eight) Branch hours as needed for Nausea and Vomiting (N/V). amoxicillin 2021-05 Yes [id number] 1{tbl} Take 1 Univers -clavulanat 2-01 [id number] tablet by i ty of e 875-125 00:00: mouth [place] mg per 00 every 12 Medical tablet (twelve) Branch hours. ondansetron 2021-05 Yes [id number] 4mg Take 1 Univers 4 mg 2-01 [id number] tablet by ity of disintegrat 00:00: mouth [place] ing tablet 00 every 8 Medica l (eight) Branch hours as needed for Nausea and Vomiting (N/V). amoxicillin 2021-05 Yes [id number] 1{tbl} Take 1 Univers -clavulanat 2-01 [id number] tablet by i ty of e 875-125 00:00: mouth [place] mg per 00 every 12 Medical tablet (twelve) Branch hours. ondansetron 2021-05 Yes [id number] 4mg Take 1 Univers 4 mg 2-01 [id number] tablet by ity of disintegrat 00:00: mouth [place] ing tablet 00 every 8 Medica l (eight) Branch hours as needed for Nausea and Vomiting (N/V). amoxicillin 2021-05 Yes [id number] 1{tbl} Take 1 Univers -clavulanat 2-01 [id number] tablet by i ty of e 875-125 00:00: mouth [place] mg per 00 every 12 Medical tablet (twelve) Branch hours. ondansetron 2021-05 Yes [id number] 4mg Take 1 Univers 4 mg 2-01 [id number] tablet by ity of disintegrat 00:00: mouth [place] ing tablet 00 every 8 Medica l (eight) Branch hours as needed for Nausea and Vomiting (N/V). amoxicillin 2021-05 Yes [id number] 1{tbl} Take 1 Univers -clavulanat 2-01 [id number] tablet by i ty of e 875-125 00:00: mouth [place] mg per 00 every 12 Medical tablet (twelve) Branch hours. ondansetron 2021-05 Yes [id number] 4mg Take 1 Univers 4 mg 2- [id number] tablet by ity of disintegrat 00:00: mouth [place] ing tablet 00 every 8 Medica l (eight) Branch hours as needed for Nausea and Vomiting (N/V). amoxicillin 2021-05 Yes [id number] 1{tbl} Take 1 Univers -clavulanat 2-01 [id number] tablet by i ty of e 875-125 00:00: mouth [place] mg per 00 every 12 Medical tablet (twelve) Branch hours. ondansetron 2021-05 Yes [id number] 4mg Take 1 Univers 4 mg 2- [id number] tablet by ity of disintegrat 00:00: mouth [place] ing tablet 00 every 8 Medica l (eight) Branch hours as needed for Nausea and Vomiting (N/V). amoxicillin 2021-05 Yes [id number] 1{tbl} Take 1 Univers -clavulanat 2-01 [id number] tablet by i ty of e 875-125 00:00: mouth [place] mg per 00 every 12 Medical tablet (twelve) Branch hours. ondansetron 2021-05 Yes [id number] 4mg Take 1 Univers 4 mg 2-01 [id number] tablet by ity of disintegrat 00:00: mouth [place] ing tablet 00 every 8 Medica l (eight) Branch hours as needed for Nausea and Vomiting (N/V). amoxicillin 2021-05 Yes [id number] 1{tbl} Take 1 Univers -clavulanat 2-01 [id number] tablet by i ty of e 875-125 00:00: mouth [place] mg per 00 every 12 Medical tablet (twelve) Branch hours. ondansetron 2021-05 Yes [id number] 4mg Take 1 Univers 4 mg 2-01 [id number] tablet by ity of disintegrat 00:00: mouth [place] ing tablet 00 every 8 Medica l (eight) Branch hours as needed for Nausea and Vomiting (N/V). zoster 2021-05- No [id number] .5mL 0.5 mL by Univers vaccine, 0-05 03-15 9104 Intramuscu ity of recombinant 00:00: 04:59 lar route [place] (SHINGRIX, 00 :00 once now Medic al PF,) for 1 Branch injection dose. And repeat in 2-6 months zoster 2021-05- No [id number] .5mL 0.5 mL by Univers vaccine, 0-05 03- 9104 Intramuscu ity of recombinant 00:00: 04:59 lar route [place] (SHINGRIX, 00 :00 once now Medic al PF,) for 1 Branch injection dose. And repeat in 2-6 months zoster 2021-05- No [id number] .5mL 0.5 mL by Univers vaccine, 0-05 03- 9104 Intramuscu ity of recombinant 00:00: 04:59 lar route [place] (SHINGRIX, 00 :00 once now Medic al PF,) for 1 Branch injection dose. And repeat in 2-6 months hydralAZINE 0 Yes 25mg Take 25 mg [...] 10mg Take 10 mg U nivers (NORVASC) - by mouth ity of 10 mg 19:28: daily. [place] tablet 04 Medical Branch clonazePAM 0 Yes 1mg Take 1 mg Un matt (KLONOPIN) 9-27 by mouth ity o f 1 mg tablet 19:28: at [place] [address] bedtime. Medical Branch traZODone Yes 50mg Take 50 mg Un matt 100 mg 9-27 by mouth ity of tablet 19:28: at [place] [address] bedtime. Medical Branch hydralAZINE Yes 25mg Take [...] mouth ity of 10 mg 19:28: daily. tablet 04 Medical Branch clonazePAM 2021-0 Yes 1mg Take 1 mg Un matt (KLONOPIN) 9-27 by mouth ity o f 1 mg tablet 19:28: at [place] [address] bedtime. Medical Branch traZODone 2021-0 Yes 50mg Take 50 mg Un matt 100 mg 9-27 by mouth ity of tablet 19:28: at [place] [address] bedtime. Medical Branch hydralAZINE 2021-0 Yes 25mg [...] mouth ity of 10 mg 19:28: daily. tablet 04 Medical Branch clonazePAM 2021-0 Yes 1mg Take 1 mg Un matt (KLONOPIN) 9-27 by mouth ity o f 1 mg tablet 19:28: at [place] [address] bedtime. Medical Branch traZODone 2021-0 Yes 50mg Take 50 mg Un matt 100 mg 9-27 by mouth ity of tablet 19:28: at [place] [address] bedtime. Medical Branch hydralAZINE 2021-0 Yes 25mg [...] o f 1 mg tablet 19:28: at [place] [address] bedtime. Medical Branch traZODone 2021-0 Yes 50mg Take 50 mg Un matt 100 mg 9-27 by mouth ity of tablet 19:28: at [place] [address] bedtime. Medical Branch hydralAZINE 2021-0 Yes 25mg [...] o f 1 mg tablet 19:28: at [place] [address] bedtime. Medical Branch traZODone 2-0 Yes 50mg Take 50 mg Un matt 100 mg 9-27 by mouth ity of tablet 19:28: at [place] [address] bedtime. Medical Branch hydralAZINE 2-0 Yes 25mg [...] o f 1 mg tablet 19:28: at [place] [address] bedtime. Medical Branch traZODone 2021-0 Yes 50mg Take 50 mg Un matt 100 mg 9-27 by mouth ity of tablet 19:28: at [place] [address] bedtime. Medical Branch hydralAZINE 2021-0 Yes 25mg [...] o f 1 mg tablet 19:28: at [place] [address] bedtime. Medical Branch traZODone 2021-0 Yes 50mg Take 50 mg Un matt 100 mg 9-27 by mouth ity of tablet 19:28: at [place] [address] bedtime. Medical Branch hydralAZINE 2021-0 Yes 25mg [...] o f 1 mg tablet 19:28: at [place] [address] bedtime. Medical Branch traZODone 2021-0 Yes 50mg Take 50 mg Un matt 100 mg 9-27 by mouth ity of tablet 19:28: at [place] [address] bedtime. Medical Branch hydralAZINE 2021-0 Yes 25mg [...] o f 1 mg tablet 19:28: at [place] [address] bedtime. Medical Branch traZODone 2021-0 Yes 50mg Take 50 mg Un matt 100 mg 9-27 by mouth ity of tablet 19:28: at [place] [address] bedtime. Medical Branch hydralAZINE 2021-0 Yes 25mg [...] o f 1 mg tablet 19:28: at [place] [address] bedtime. Medical Branch traZODone 2021-0 Yes 50mg Take 50 mg Un matt 100 mg 9-27 by mouth ity of tablet 19:28: at [place] [address] bedtime. Medical Branch hydralAZINE 2021-0 Yes 25mg [...] 100 mg 04 (two) [facility] tablet times [facility] daily. amLODIPine 2021-0 Yes 10mg Take 10 mg U nivers (NORVASC) 9-27 by mouth ity of 10 mg 19:28: daily. [place] tablet 04 Medical Branch clonazePAM 2021-0 Yes 1mg Take 1 mg Un matt (KLONOPIN) 9-27 by mouth ity o f 1 mg tablet 19:28: at [place] [address] bedtime. Medical Branch traZODone 2021-0 Yes 50mg Take 50 mg Un matt 100 mg 9-27 by mouth ity of tablet 19:28: at [place] [address] bedtime. Medical Branch hydralAZINE 2021-0 Yes 25mg [...] 100 mg 04 (two) Medical tablet times [facility] daily. amLODIPine 2021-0 Yes 10mg Take 10 mg U nivers (NORVASC) 9-27 by mouth ity of 10 mg 19:28: daily. [place] tablet 04 Medical Branch clonazePAM 2021-0 Yes 1mg Take 1 mg Un matt (KLONOPIN) 9-27 by mouth ity o f 1 mg tablet 19:28: at [place] [address] bedtime. Medical Branch traZODone 2021-0 Yes 50mg Take 50 mg Un matt 100 mg 9-27 by mouth ity of tablet 19:28: at [place] [address] bedtime. Medical Branch hydralAZINE 2021-0 Yes 25mg [...] o f 1 mg tablet 19:28: at [place] [address] bedtime. Medical Branch traZODone 2021-0 Yes 50mg Take 50 mg Un matt 100 mg 9-27 by mouth ity of tablet 19:28: at [place] [address] bedtime. Medical Branch hydralAZINE 2021-0 Yes 25mg [...] 100 mg 04 (two) Medical tablet times [facility] daily. amLODIPine 2021-0 Yes 10mg Take 10 mg U nivers (NORVASC) 9-27 by mouth ity of 10 mg 19:28: daily. [place] tablet 04 Medical Branch clonazePAM 2021-0 Yes 1mg Take 1 mg Un matt (KLONOPIN) 9-27 by mouth ity o f 1 mg tablet 19:28: at [place] [address] bedtime. Medical Branch traZODone 2021-0 Yes 50mg Take 50 mg Un matt 100 mg 9-27 by mouth ity of tablet 19:28: at [place] [address] bedtime. Medical Branch hydralAZINE 2021-0 Yes 25mg [...] o f 1 mg tablet 19:28: at [place] [address] bedtime. Medical Branch traZODone 2-0 Yes 50mg Take 50 mg Un matt 100 mg 9-27 by mouth ity of tablet 19:28: at [place] [address] bedtime. Medical Branch hydralAZINE 2-0 Yes 25mg [...] o f 1 mg tablet 19:28: at [place] [address] bedtime. Medical Branch traZODone 2022-0 Yes 50mg Take 50 mg Un matt 100 mg 9-27 by mouth ity of tablet 19:28: at [place] [address] bedtime. Medical Branch hydralAZINE 2-0 Yes 25mg [...] o f 1 mg tablet 19:28: at [place] [address] bedtime. Medical Branch traZODone 2-0 Yes 50mg Take 50 mg Un matt 100 mg 9-27 by mouth ity of tablet 19:28: at [place] [address] bedtime. Medical Branch hydralAZINE 2021-0 Yes 25mg [...] 100 mg 04 (two) Medical tablet times [facility] daily. amLODIPine 2-0 Yes 10mg Take 10 mg U nivers (NORVASC) 9-27 by mouth ity of 10 mg 19:28: daily. [place] tablet 04 Medical Branch clonazePAM 2-0 Yes 1mg Take 1 mg Un matt (KLONOPIN) 9-27 by mouth ity o f 1 mg tablet 19:28: at [place] [address] bedtime. Medical Branch traZODone 2-0 Yes 50mg Take 50 mg Un matt 100 mg 9-27 by mouth ity of tablet 19:28: at [place] 04 bedtime. [facility] cefpodoxime 2021-0 2021- No [id number] 200mg Take 1 [facility] 200 mg 02-16 tablet by ity of tablet 00:00: 04:59 mouth in [place] 00 :00 the Medical morning Branch and 1 tablet in the evening. Do all this for 3 days. cefpodoxime 2021-0 2021- No [id number] 200mg Take 1 [facility] 200 mg 02-16 tablet by ity of tablet 00:00: 04:59 mouth in [place] 00 :00 the Medical morning Branch and 1 tablet in the evening. Do all this for 3 days. haloperidol 2021-2021- No 2mg 2 mg, Slow [facility] lactate 02-15 IV Push, ity of (HALDOL) 09:00: 09:12 ONCE, 1 [place] injection 2 00 :00 dose, On Medi porfirio mg [facility] 02/15/22 at 0400, Routine hydroCHLORO 0 Yes 25mg 25 mg, [facility] ers thiazide 9-25 Oral, ity of (ESIDRIX) 14:00: DAILY, [place] capsule 25 00 First dose Med ical mg on [facility] 02/14/22 at 0900, Until Discontinu ed, Routine butalbital- Yes 1{tbl} 1 tablet, [facility] acetaminoph 24 Oral, ity of en-caff 18:46: Q6HPRN, [place] (ESGIC) 06 Starting Medical 50-325-40 on [facility] Branch mg tablet 1 02/13/22 at tablet 1346, Until Discontinu ed, Routine, headaches dicyclomine 0 Yes 10mg 10 mg, Univ ers (BENTYL) 9-24 Oral, QID, ity o f capsule 10 17:00: First dose [place] mg 00 on [facility] 02/13/22 at Branch 1200, Until Discontinu ed, Routine tiZANidine 2021-0 Yes 4mg 4 mg, Univer s (ZANAFLEX) 9-23 Oral, Q8H, ity of tablet 4 mg 19:00: First dose [place] 00 on Fri Medical 02/12/22 at Branch 1400, Until Discontinu ed, Routine HYDROmorpho 2022-0 Yes 4mg 4 mg, Unive rs ne [...] :00 dose, On Medic al mg [facility] Branch 02/11/22 at 1645, Routine nitroglycer 0 Yes .4mg 0.4 mg, Uni vers in 02-11 Sublingual ity of (NITROSTAT) 21:31: , Q5MIN [place] sublingual 20 PRN, Medical tablet 0.4 Starting Branc h mg on [facility] 02/11/22 at 1631, Until Discontinu ed, [...] (MYCOLOG) 19:00: dose on [place] cream 00 [facility] 02/11/22 at Branch 1400, Until Discontinu ed, Routine busPIRone 0 Yes 30mg 30 mg, Univer s (BUSPAR) 02-11 Oral, BID, ity o f tablet 30 18:00: First dose [place] mg 00 on [facility] 02/11/22 at Branch 1300, Until Discontinu ed, Routine raltegravir 0 Yes 400mg 400 mg, Un matt (ISENTRESS) 02-11 Oral, BID, it y of tablet 400 18:00: First dose [place] mg 00 on [facility] Medical 02/11/22 at Branch 1300, Until Discontinu ed, JOE metoprolol 0 Yes 100mg 100 mg, Uni vers tartrate 02-11 Oral, BID, ity o f (LOPRESSOR) 18:00: First dose [place] tablet 100 00 on [facility] Medical mg 02/11/22 at Branch 1300, Until Discontinu ed, Routine lisinopriL 0 Yes 40mg 40 mg, Unive rs (PRINIVIL,Z 02-11 Oral, BID, it y of ESTRIL) 18:00: First dose [place] tablet 40 00 on [facility] Medical mg 02/11/22 at Branch 1300, Until Discontinu ed, Routine emtricitabi 0 Yes 1{tbl} 1 tablet, [facility] ne-tenofovi 02-11 Oral, ity of r alafen 18:00: DAILY, [place] (DESCOVY) 00 First dose Medi porfirio tablet 1 on [facility] tablet 02/11/22 at 1300, Until Discontinu ed, Routine ipratropium 0 Yes .5mg 0.5 mg, Uni vers (ATROVENT) 02-11 Inhalation ity of 0.02 % 17:57: , QIDPRN, [place] nebulizer 10 Starting Medica l solution on [facility] Branch 0.5 mg 02/11/22 at 1257, Until Discontinu ed, Routine, Wheezing, Shortness of Breath amLODIPine 0 Yes 10mg 10 mg, Unive rs (NORVASC) 02-11 Oral, ity of tablet 10 17:30: DAILY, [place] mg 00 First dose Medical (after [facility] last modificati on) on [facility] 02/11/22 at 1230, Until Discontinu ed, Routine hydrALAZINE 2021- No 25mg 25 mg, Uni vers (APRESOLINE 02-11 Oral, ity of ) tablet 25 17:30: 12:54 DAILY, [place] mg 00 :55 First dose Medical (after [facility] last modificati on) on [facility] 02/11/22 at 1230, Until Discontinu ed, [...] 02-11 Oral, ity of (TYLENOL 14:06: 17:37 [facility], [place] #3) 300-30 19 :24 Starting Medic al mg tablet 1 on [place] Branch tablet 02/11/22 at 0906, Until Tue02/12/22 at 1237, Routine, Pain (scale 4-6) sennosides- 0 Yes 1{tbl} 1 tablet, Univers docusate 02-11 Oral, ity of sodium 14:06: QDAILYPRN, [place] (SENOKOT-S) 09 Starting Medi porfirio 8.6-50 mg on [facility] Branch per tablet 02/11/22 at 1 tablet 0906, Until Discontinu ed, Routine, Constipati on ondansetron 0 Yes 4mg 4 mg, Slow Univers (ZOFRAN 02-11 IV Push, ity of (PF)) 14:05: [place] 4 59 Starting Medi porfirio mg on [place] Branch 02/11/22 at 0905, Until Discontinu ed, Routine, Nausea and Vomiting (N/V) acetaminoph 2021-0 Yes 650mg 650 mg, Un matt en 02-11 Oral, ity of (TYLENOL) 14:04: [place] tablet 650 37 Starting Medic al [...] ity of ) 25 mg 09:10: daily. [facility] Branch amLODIPine Yes 10mg Take 10 mg U nivers (NORVASC) 02-11 by mouth ity of 10 mg 09:10: daily. [facility] Branch piperacilli 2021- No 3.375g 3.375 [...] of therapy: 72 hours iopamidol 2021- No [id number] 60mL 60 mL, Univers (ISOVUE 02-11 Intravenou [...] 02/11/22 at 0015, JOE emtricitabi 0 Yes [id number] Take one Univers ne-tenofovi 9-12 po daily ity of r alafen 00:00: [place] (DESCOVY) 00 Medical tablet Branch emtricitabi Yes [id number] Take one Univers ne-tenofovi 9-12 po daily ity of r alafen 00:00: [place] (DESCOVY) 00 Medical tablet Branch emtricitabi Yes [id number] Take one Univers ne-tenofovi 9-12 po daily ity of r alafen 00:00: [place] (DESCOVY) 00 Medical tablet Branch emtricitabi Yes [id number] Take one Univers ne-tenofovi 9-12 po daily ity of r alafen 00:00: [place] (DESCOVY) 00 Medical tablet Branch emtricitabi Yes [id number] Take one Univers ne-tenofovi 9-12 po daily ity of r alafen 00:00: [place] (DESCOVY) 00 Medical tablet Branch emtricitabi Yes [id number] Take one Univers ne-tenofovi 9-12 po daily ity of r alafen 00:00: [place] (DESCOVY) 00 Medical tablet Branch emtricitabi Yes [id number] Take one Univers ne-tenofovi 9-12 po daily ity of r alafen 00:00: [place] (DESCOVY) 00 Medical tablet Branch [facility] Yes [id number] Take one Univers ne-tenofovi 9-12 po daily ity of r alafen 00:00: [place] (DESCOVY) 00 Medical tablet Branch emtricita Yes [id number] Take one Univers ne-tenofovi 9-12 po daily ity of r alafen 00:00: [place] (DESCOVY) 00 Medical tablet Branch emtricita Yes [id number] Take one Univers ne-tenofovi 9-12 po daily ity of r alafen 00:00: [place] (DESCOVY) 00 Medical tablet Branch emtricita Yes [id number] Take one Univers ne-tenofovi 9-12 po daily ity of r alafen 00:00: [place] (DESCOVY) 00 Medical tablet Branch [facility] Yes [id number] Take one Univers ne-tenofovi 9-12 po daily ity of r alafen 00:00: [place] (DESCOVY) 00 Medical tablet Branch emtricjfk [facility] Yes [id number] Take one Univers ne-tenofovi 9-12 po daily ity of r alafen 00:00: [place] (DESCOVY) 00 Medical tablet Branch emtricita Yes [id number] Take one Univers ne-tenofovi 9-12 po daily ity of r alafen 00:00: [place] (DESCOVY) 00 Medical tablet Branch emtricita Yes [id number] Take one Univers ne-tenofovi 9-12 po daily ity of r alafen 00:00: [place] (DESCOVY) 00 Medical tablet Branch emtricita Yes [id number] Take one Univers ne-tenofovi 9-12 po daily ity of r alafen 00:00: [place] (DESCOVY) 00 Medical tablet Branch emtricita Yes [id number] Take one Univers ne-tenofovi 9-12 po daily ity of r alafen 00:00: [place] (DESCOVY) 00 Medical tablet Branch emtricitabi 0 2022- No [id number] Take one Univers ne-tenofovi 9-12 04-04 po daily ity of r alafen 00:00: 00:00 [place] (DESCOVY) 00 :00 Medical tablet Branch emtricitabi 2021-0 3- No [id number] Take one Univers ne-tenofovi 02-01 po daily ity of r alafen 00:00: 00:00 [place] (DESCOVY) 00 :00 Medical tablet Branch naproxen 2021-0 Yes [id number] 500mg Take 1 U nivers (NAPROSYN) 7-24 tablet by ity of 500 mg 00:00: mouth in [place] tablet 00 the Medical morning Branch and 1 tablet in the evening. Take with meals. methocarbam 2021-0 Yes [id number] 500mg Take 1 Univers oL 500 mg 7-24 tablet by ity o f tablet 00:00: mouth 4 [place] ([facility]) Medical times [facility] daily. naproxen 2021-0 Yes [id number] 500mg Take 1 U nivers (NAPROSYN) 7-24 tablet by ity of 500 mg 00:00: mouth in [place] tablet 00 the Medical morning Branch and 1 tablet in the evening. Take with meals. methocarbam 2021-0 Yes [id number] 500mg Take 1 [facility] oL 500 mg 7-24 tablet by ity o f tablet 00:00: mouth 4 ([facility]) Medical times [facility] daily. naproxen 2021-0 Yes [id number] 500mg Take 1 U nivers (NAPROSYN) 7-24 tablet by ity of 500 mg 00:00: mouth in [place] tablet 00 the Medical morning Branch and 1 tablet in the evening. Take with meals. methocarbam 2021-0 Yes [id number] 500mg Take 1 Univers oL 500 mg 7-24 tablet by ity o f tablet 00:00: mouth 4 [place] ([facility]) Medical times [facility] daily. naproxen 2021-0 2- No [id number] 500mg Take 1 Univers (NAPROSYN) 7-24 10-14 tablet by ity of 500 mg 00:00: 00:00 mouth in [place] tablet 00 :00 the Medical morning Branch and 1 tablet in the evening. Take with meals. methocarbam 2021-0 2- No [id number] 500mg Take 1 [facility] oL 500 mg 7-24 10-14 tablet by ity of tablet 00:00: 00:00 mouth 4 [place] 00 :00 (four) Medical times Branch daily. naproxen 2021- No [id number] 500mg Take 1 Univers (NAPROSYN) 12-13- tablet by ity of 500 mg 00:00: 00:00 mouth in [place] tablet 00 :00 the Medical morning Branch and 1 tablet in the evening. Take with meals. methocarbam 2021- No [id number] 500mg Take 1 Univers oL 500 mg [...] [place] 57 :00 daily. Medical Branch apixaban No 5mg Take 5 mg Uni vers (ELIQUIS) 5 11-20 by mouth 2 i ty of mg tablet 09:11: 00:00 (two) [place] 35 :00 times Medical daily. Branch traZODONE 2021- No Take by [facility] ers (DESYREL) 11-20 mouth at ity o f 10 mg/mL 09:10: 00:00 bedtime. [place] oral 28 :00 Medical suspension Branch hydralAZINE Yes 25mg Take 25 mg Univers (APRESOLINE 11-20 by mouth ity of ) 25 mg 08:47: daily. [place] tablet 47 Medical Branch cephALEXin 2021- No [id number] 500mg Take 1 Univers (KEFLEX) 10-24 capsule [...] Indication s: acute pain buPROPion 0 Yes [id number] 150mg Take 1 U nivers XL 4-12 tablet by ity of (WELLBUTRIN 00:00: mouth [place] XL) 150 mg 00 daily. Medical 24 hr Branch tablet busPIRone 2021-0 Yes [id number] 30mg Take 1 Un matt 30 mg 4-12 tablet by ity of tablet 00:00: mouth 2 [place] 00 (two) Medical times Branch daily. SERTraline 2021-0 Yes [id number] 200mg Take 2 Univers 100 mg 4-12 tablets by ity of tablet 00:00: mouth [place] 00 daily. Medical Branch buPROPion Yes [id number] 150mg Take 1 U nivers XL 4-12 tablet by ity of (WELLBUTRIN 00:00: mouth [place] XL) 150 mg 00 daily. Medical 24 hr Branch tablet busPIRone 0 Yes [id number] 30mg Take 1 Un matt 30 mg 4-12 tablet by ity of tablet 00:00: mouth 2 [place] 00 (two) Medical times Branch daily. SERTraline 0 Yes [id number] 200mg Take 2 Univers 100 mg 4-12 tablets by ity of tablet 00:00: mouth [place] 00 daily. Medical Branch buPROPion 2021-0 Yes [id number] 150mg Take 1 U nivers XL 4-12 tablet by ity of (WELLBUTRIN 00:00: mouth [place] XL) 150 mg 00 daily. Medical 24 hr Branch tablet busPIRone 2021-0 Yes [id number] 30mg Take 1 Un matt 30 mg 4-12 tablet by ity of tablet 00:00: mouth 2 [place] 00 (two) Medical times Branch daily. SERTraline 2021-0 Yes [id number] 200mg Take 2 Univers 100 mg 4-12 tablets by ity of tablet 00:00: mouth [place] 00 daily. Medical Branch buPROPion 2021-0 Yes [id number] 150mg Take 1 U nivers XL 4-12 tablet by ity of (WELLBUTRIN 00:00: mouth [place] XL) 150 mg 00 daily. Medical 24 hr Branch tablet busPIRone 2021-0 Yes [id number] 30mg Take 1 Un matt 30 mg 4-12 tablet by ity of tablet 00:00: mouth 2 [place] 00 (two) Medical times Branch daily. SERTraline 2021-0 Yes [id number] 200mg Take 2 Univers 100 mg 4-12 tablets by ity of tablet 00:00: mouth [place] 00 daily. Medical Branch buPROPion 2021-0 Yes [id number] 150mg Take 1 U nivers XL 4-12 tablet by ity of (WELLBUTRIN 00:00: mouth [place] XL) 150 mg 00 daily. Medical 24 hr Branch tablet busPIRone 2021-0 Yes [id number] 30mg Take 1 Un matt 30 mg 4-12 tablet by ity of tablet 00:00: mouth 2 [place] 00 (two) Medical times Branch daily. SERTraline 2021-0 Yes [id number] 200mg Take 2 Univers 100 mg 4-12 tablets by ity of tablet 00:00: mouth [place] 00 daily. Medical Branch buPROPion 2021-0 Yes [id number] 150mg Take 1 U nivers XL 4-12 tablet by ity of (WELLBUTRIN 00:00: mouth [place] XL) 150 mg 00 daily. Medical 24 hr Branch tablet busPIRone 2021-0 Yes [id number] 30mg Take 1 Un matt 30 mg 4-12 tablet by ity of tablet 00:00: mouth 2 [place] 00 (two) Medical times Branch daily. SERTraline 2021-0 Yes [id number] 200mg Take 2 Univers 100 mg 4-12 tablets by ity of tablet 00:00: mouth [place] 00 daily. Medical Branch buPROPion 2021-0 Yes [id number] 150mg Take 1 U nivers XL 4-12 tablet by ity of (WELLBUTRIN 00:00: mouth [place] XL) 150 mg 00 daily. Medical 24 hr Branch tablet busPIRone 2021-0 Yes [id number] 30mg Take 1 Un matt 30 mg 4-12 tablet by ity of tablet 00:00: mouth 2 [place] 00 (two) Medical times Branch daily. SERTraline 2021-0 Yes [id number] 200mg Take 2 [facility] 100 mg 4-12 tablets by ity of tablet 00:00: mouth [place] 00 daily. Medical Branch buPROPion 2021-0 Yes [id number] 150mg Take 1 U nivers XL 4-12 tablet by ity of (WELLBUTRIN 00:00: mouth [place] XL) 150 mg 00 daily. Medical 24 hr Branch tablet busPIRone 2021-0 Yes [id number] 30mg Take 1 Un matt 30 mg 4-12 tablet by ity of tablet 00:00: mouth 2 00 (two) Medical times Branch daily. SERTraline 2021-0 Yes [id number] 200mg Take 2 [facility] 100 mg 4-12 tablets by ity of tablet 00:00: mouth [place] 00 daily. Medical Branch buPROPion 2021-0 Yes [id number] 150mg Take 1 U nivers XL 4-12 tablet by ity of (WELLBUTRIN 00:00: mouth [place] XL) 150 mg 00 daily. Medical 24 hr Branch tablet busPIRone 2021-0 Yes [id number] 30mg Take 1 Un matt 30 mg 4-12 tablet by ity of tablet 00:00: mouth 2 (two) Medical times Branch daily. SERTraline 2021-0 Yes [id number] 200mg Take 2 [facility] 100 mg 4-12 tablets by ity of tablet 00:00: mouth [place] 00 daily. Medical Branch buPROPion 2021-0 Yes [id number] 150mg Take 1 U nivers XL 4-12 tablet by ity of (WELLBUTRIN 00:00: mouth [place] XL) 150 mg 00 daily. Medical 24 hr Branch tablet busPIRone 2021-0 Yes [id number] 30mg Take 1 Un matt 30 mg 4-12 tablet by ity of tablet 00:00: mouth 2 (two) Medical times Branch daily. SERTraline 2021-0 Yes [id number] 200mg Take 2 [facility] 100 mg 4-12 tablets by ity of tablet 00:00: mouth [place] 00 daily. Medical Branch buPROPion 2021-0 Yes [id number] 150mg Take 1 U nivers XL 4-12 tablet by ity of (WELLBUTRIN 00:00: mouth [place] XL) 150 mg 00 daily. Medical 24 hr Branch tablet busPIRone 2021-0 Yes [id number] 30mg Take 1 Un matt 30 mg 4-12 tablet by ity of tablet 00:00: mouth 2 [place] 00 (two) Medical times Branch daily. SERTraline 2021-0 Yes [id number] 200mg Take 2 [facility] 100 mg 4-12 tablets by ity of tablet 00:00: mouth [place] 00 daily. Medical Branch buPROPion 2021-0 Yes [id number] 150mg Take 1 U nivers XL 4-12 tablet by ity of (WELLBUTRIN 00:00: mouth [place] XL) 150 mg 00 daily. Medical 24 hr Branch tablet busPIRone 2021-0 Yes [id number] 30mg Take 1 Un matt 30 mg 4-12 tablet by ity of tablet 00:00: mouth 2 [place] 00 (two) Medical times Branch daily. SERTraline 0 Yes [id number] 200mg Take 2 Univers 100 mg 4-12 tablets by ity of tablet 00:00: mouth [place] 00 daily. Medical Branch buPROPion 0 Yes [id number] 150mg Take 1 U nivers XL 4-12 tablet by ity of (WELLBUTRIN 00:00: mouth [place] XL) 150 mg 00 daily. Medical 24 hr Branch tablet busPIRone 2021-0 Yes [id number] 30mg Take 1 Un matt 30 mg 4-12 tablet by ity of tablet 00:00: mouth 2 [place] 00 (two) Medical times Branch daily. SERTraline 2021-0 Yes [id number] 200mg Take 2 [facility] 100 mg 4-12 tablets by ity of tablet 00:00: mouth [place] 00 daily. Medical Branch buPROPion 2021-0 Yes [id number] 150mg Take 1 U nivers XL 4-12 tablet by ity of (WELLBUTRIN 00:00: mouth [place] XL) 150 mg 00 daily. Medical 24 hr Branch tablet busPIRone 2021-0 Yes [id number] 30mg Take 1 Un matt 30 mg 4-12 tablet by ity of tablet 00:00: mouth 2 [place] 00 (two) Medical times Branch daily. SERTraline 2021-0 Yes [id number] 200mg Take 2 [facility] 100 mg 4-12 tablets by ity of tablet 00:00: mouth [place] 00 daily. Medical Branch buPROPion 2021-0 Yes [id number] 150mg Take 1 U nivers XL 4-12 tablet by ity of (WELLBUTRIN 00:00: mouth [place] XL) 150 mg 00 daily. Medical 24 hr Branch tablet busPIRone 2022-0 Yes [id number] 30mg Take 1 Un matt 30 mg 4-12 tablet by ity of tablet 00:00: mouth 2 [place] 00 (two) Medical times Branch daily. SERTraline 2021-0 Yes [id number] 200mg Take 2 [facility] 100 mg 4-12 tablets by ity of tablet 00:00: mouth [place] 00 daily. Medical Branch buPROPion 0 Yes [id number] 150mg Take 1 U nivers XL 4-12 tablet by ity of (WELLBUTRIN 00:00: mouth [place] XL) 150 mg 00 daily. Medical 24 hr Branch tablet busPIRone 2021-0 Yes [id number] 30mg Take 1 Un matt 30 mg 4-12 tablet by ity of tablet 00:00: mouth 2 [place] 00 (two) Medical times Branch daily. SERTraline 0 Yes [id number] 200mg Take 2 [facility] 100 mg 4-12 tablets by ity of tablet 00:00: mouth [place] 00 daily. Medical Branch buPROPion 0 Yes [id number] 150mg Take 1 U nivers XL 4-12 tablet by ity of (WELLBUTRIN 00:00: mouth [place] XL) 150 mg 00 daily. Medical 24 hr Branch tablet busPIRone 0 Yes [id number] 30mg Take 1 Un matt 30 mg 4-12 tablet by ity of tablet 00:00: mouth 2 [place] 00 (two) Medical times Branch daily. SERTraline 0 Yes [id number] 200mg Take 2 [facility] 100 mg 4-12 tablets by ity of tablet 00:00: mouth [place] 00 daily. Medical Branch buPROPion 0 Yes [id number] 150mg Take 1 U nivers XL 4-12 tablet by ity of (WELLBUTRIN 00:00: mouth [place] XL) 150 mg 00 daily. Medical 24 hr Branch tablet busPIRone 2021-0 Yes [id number] 30mg Take 1 Un matt 30 mg 4-12 tablet by ity of tablet 00:00: mouth 2 [place] 00 (two) Medical times Branch daily. SERTraline 2021-0 Yes [id number] 200mg Take 2 [facility] 100 mg 4-12 tablets by ity of tablet 00:00: mouth [place] 00 daily. Medical Branch buPROPion 2021-0 Yes [id number] 150mg Take 1 U nivers XL 4-12 tablet by ity of (WELLBUTRIN 00:00: mouth [place] XL) 150 mg 00 daily. Medical 24 hr Branch tablet busPIRone 2021-0 Yes [id number] 30mg Take 1 Un matt 30 mg 4-12 tablet by ity of tablet 00:00: mouth 2 [place] 00 (two) Medical times Branch daily. SERTraline 2021-0 Yes [id number] 200mg Take 2 [facility] 100 mg 4-12 tablets by ity of tablet 00:00: mouth [place] 00 daily. Medical Branch buPROPion 2021-0 Yes [id number] 150mg Take 1 U nivers XL 4-12 tablet by ity of (WELLBUTRIN 00:00: mouth [place] XL) 150 mg 00 daily. Medical 24 hr Branch tablet busPIRone 2021-0 Yes [id number] 30mg Take 1 Un matt 30 mg 4-12 tablet by ity of tablet 00:00: mouth 2 [place] 00 (two) Medical times Branch daily. SERTraline 2021-0 Yes [id number] 200mg Take 2 [facility] 100 mg 4-12 tablets by ity of tablet 00:00: mouth [place] 00 daily. Medical Branch raltegravir 2021-0 Yes [id number] 400mg Take 1 Univers (ISENTRESS) 3-28 tablet by ity of 400 mg 00:00: mouth 2 [place] tablet 00 (two) Medical times Branch daily. raltegravir 2021-0 Yes [id number] 400mg Take 1 Univers (ISENTRESS) 3-28 tablet by ity of 400 mg 00:00: mouth 2 [place] tablet 00 (two) Medical times Branch daily. raltegravir 2021-0 Yes [id number] 400mg Take 1 Univers (ISENTRESS) 3-28 tablet by ity of 400 mg 00:00: mouth 2 [place] tablet 00 (two) Medical times Branch daily. raltegravir 202-0 Yes [id number] 400mg Take 1 Univers (ISENTRESS) 3-28 tablet by ity of 400 mg 00:00: mouth 2 [place] tablet 00 (two) Medical times Branch daily. raltegravir 2021-0 Yes [id number] 400mg Take 1 Univers (ISENTRESS) 3-28 tablet by ity of 400 mg 00:00: mouth 2 [place] tablet 00 (two) Medical times Branch daily. raltegravir 2022-0 Yes [id number] 400mg Take 1 Univers (ISENTRESS) 3-28 tablet by ity of 400 mg 00:00: mouth 2 [place] tablet 00 (two) Medical times Branch daily. raltegravir 2022-0 Yes [id number] 400mg Take 1 Univers (ISENTRESS) 3-28 tablet by ity of 400 mg 00:00: mouth 2 [place] tablet 00 (two) Medical times Branch daily. raltegravir 2-0 Yes [id number] 400mg Take 1 Univers (ISENTRESS) 3-28 tablet by ity of 400 mg 00:00: mouth 2 [place] tablet 00 (two) Medical times Branch daily. raltegravir 2-0 Yes [id number] 400mg Take 1 Univers (ISENTRESS) 3-28 tablet by ity of 400 mg 00:00: mouth 2 [place] tablet 00 (two) Medical times Branch daily. raltegravir 2-0 Yes [id number] 400mg Take 1 Univers (ISENTRESS) 3-28 tablet by ity of 400 mg 00:00: mouth 2 [place] tablet 00 (two) Medical times Branch daily. raltegravir 2-0 Yes [id number] 400mg Take 1 Univers (ISENTRESS) 3-28 tablet by ity of 400 mg 00:00: mouth 2 [place] tablet 00 (two) Medical times Branch daily. raltegravir 2-0 Yes [id number] 400mg Take 1 Univers (ISENTRESS) 3-28 tablet by ity of 400 mg 00:00: mouth 2 [place] tablet 00 (two) Medical times Branch daily. raltegravir 2022-0 Yes [id number] 400mg Take 1 [facility] (ISENTRESS) 3-28 tablet by ity of 400 mg 00:00: mouth 2 [place] tablet 00 (two) Medical times Branch daily. raltegravir 2022-0 Yes [id number] 400mg Take 1 [facility] (ISENTRESS) 3-28 tablet by ity of 400 mg 00:00: mouth 2 [place] tablet 00 (two) Medical times Branch daily. raltegravir 2022-0 Yes [id number] 400mg Take 1 [facility] (ISENTRESS) 3-28 tablet by ity of 400 mg 00:00: mouth 2 [place] tablet 00 (two) Medical times Branch daily. raltegravir 2022-0 Yes [id number] 400mg Take 1 [facility] (ISENTRESS) 3-28 tablet by ity of 400 mg 00:00: mouth 2 [place] tablet 00 (two) Medical times Branch daily. raltegravir 2021-0 Yes [id number] 400mg Take 1 [facility] (ISENTRESS) 3-28 tablet by ity of 400 mg 00:00: mouth 2 [place] tablet 00 (two) Medical times Branch daily. raltegravir 2021-0 Yes [id number] 400mg Take 1 [facility] (ISENTRESS) 3-28 tablet by ity of 400 mg 00:00: mouth 2 [place] tablet 00 (two) Medical times Branch daily. raltegravir 0 Yes [id number] 400mg Take 1 [facility] (ISENTRESS) 3-28 tablet by ity of 400 mg 00:00: mouth 2 [place] tablet 00 (two) Medical times Branch daily. raltegravir 0 Yes [id number] 400mg Take 1 [facility] (ISENTRESS) 3-28 tablet by ity of 400 mg 00:00: mouth 2 [place] tablet 00 (two) Medical times Branch daily. LORazepam 1 2021- No [id number] 1mg Take 1 [facility] mg tablet 3-10 [...] times a tablet day. emtricitabi 2021- No [id number] Take one [facility] ne-tenofovi 1-20 09-12 po daily ity of r alafen 00:00: 00:00 [place] (DESCOVY) 00 :00 Medical tablet Branch metoprolol 0 Yes [id number] Take 1 [facility] tartrate 7-26 tablet [facility] (Lopressor) 00:00: (100 mg 100 MG 00 total) by tablet mouth 2 (two) times a day AND 0.5 tablets (50 mg total) every night. metoprolol Yes [id number] Take 1 [facility] tartrate 7-26 [facility] [...] (affected area in groin) hydrALAZINE Yes 50mg Q.53902751 Take 50 mg [facility] (APRESOLINE 7-19 [id number] by mouth 3 st ) 50 MG [...] area in groin) hydrALAZINE 0 Yes 50mg Q.18949331 Take 50 mg [facility] (APRESOLINE 7-19 [id number] by mouth 3 st ) 50 MG [...] area in groin) hydrALAZINE 0 Yes 50mg Q.54194482 Take 50 mg [facility] (APRESOLINE 7-19 [id number] by mouth 3 st ) 50 MG [...] (affected area in groin) hydrALAZINE Yes 50mg Q.85567064 Take 50 mg [facility] (APRESOLINE 7-19 [id number] by mouth 3 st ) 50 MG [...] area in groin) hydrALAZINE 0 Yes 50mg Q.51533985 Take 50 mg [facility] (APRESOLINE 7-19 [id number] [address] mouth 3 st ) 50 MG [...] area in groin) hydrALAZINE 0 Yes 50mg Q.[id number] Take 50 mg [facility] (APRESOLINE 7-19 [id number] [address] mouth 3 [facility] ) 50 MG [...] (affected area in groin) hydrALAZINE Yes 50mg Q.17958787 Take 50 mg [facility] (APRESOLINE 7-19 [id number] [address] mouth 3 [facility] ) 50 MG [...] area in groin) hydrALAZINE 0 Yes 50mg Q.[id number] Take 50 mg [facility] (APRESOLINE 7-19 [id number] by mouth 3 st ) 50 MG [...] area in groin) hydrALAZINE 0 Yes 50mg Q.75278896 Take 50 mg [facility] (APRESOLINE 7-19 [id number] mouth 3 st ) 50 MG [...] (affected area in groin) hydrALAZINE Yes 50mg Q.88177418 Take 50 mg [facility] (APRESOLINE 7-19 [id number] by mouth 3 st ) 50 MG [...] area in groin) hydrALAZINE 0 Yes 50mg Q.29580429 Take 50 mg [facility] (APRESOLINE 7-19 [id number] [address] mouth 3 st ) 50 MG [...] area in groin) hydrALAZINE 2021-0 Yes 50mg Q.93548377 Take 50 mg [facility] (APRESOLINE 7-19 [id number] mouth 3 st ) 50 MG [...] (affected area in groin) hydrALAZINE Yes 50mg Q.45399402 Take 50 mg [facility] (APRESOLINE 7-19 [id number] [address] mouth 3 [address] ) 50 MG [...] area in groin) hydrALAZINE 0 Yes 50mg Q.41574994 Take 50 mg [facility] (APRESOLINE 7-[id number] mouth 3 [address] ) 50 MG [...] area in groin) hydrALAZINE 0 Yes 50mg Q.91052182 Take 50 mg [facility] (APRESOLINE 7-19 [id number] [address] mouth 3 [address] ) 50 MG [...] (affected area in groin) hydrALAZINE Yes 50mg Q.[id number] Take 50 mg [facility] (APRESOLINE 7-[id number] mouth 3 [address] ) 50 MG [...] (affected area in groin) hydrALAZINE Yes 50mg Q.40150776 Take 50 mg [facility] (APRESOLINE 7-[id number] mouth 3 [address] ) 50 MG [...] area in groin) hydrALAZINE 0 Yes 50mg Q.79815386 Take 50 mg [facility] (APRESOLINE 7-[id number] mouth 3 [address] ) 50 MG [...] area in groin) hydrALAZINE 0 Yes 50mg Q.24942234 Take 50 mg [facility] (APRESOLINE 7-19 [id number] mouth 3 [address] ) 50 MG [...] (affected area in groin) hydrALAZINE Yes 50mg Q.[id number] Take 50 mg [facility] (APRESOLINE 7-[id number] mouth 3 [address] ) 50 MG [...] (affected area in groin) hydrALAZINE Yes 50mg Q.12312768 Take 50 mg [facility] (APRESOLINE 7-19 [id number] mouth 3 [address] ) 50 MG [...] area in groin) hydrALAZINE 0 Yes 50mg Q.21608908 Take 50 mg [facility] (APRESOLINE 7-[id number] mouth [address] ) 50 MG [...] (affected area in groin) hydrALAZINE Yes 50mg Q.93102700 Take 50 mg [facility] (APRESOLINE 7-19 [address]20[address] mouth 3 [address] ) 50 MG [...] area in groin) hydrALAZINE 0 Yes 50mg Q.81470987 Take 50 mg [facility] (APRESOLINE 7-19 [id number] mouth [address] ) 50 MG [...] area in groin) hydrALAZINE 0 Yes 50mg Q.50260881 Take 50 mg [facility] (APRESOLINE 7-19 4856860[address] mouth 3 [address] ) 50 MG [...] (affected area in groin) hydrALAZINE Yes 50mg Q.98283046 Take 50 mg [facility] (APRESOLINE 7-[address]2638[address] mouth 3 [address] ) 50 MG [...] (affected area in groin) hydrALAZINE Yes 50mg Q.37644356 Take 50 mg [facility] (APRESOLINE 7-19 [id number] mouth 3 [address] ) 50 MG [...] (affected area in groin) hydrALAZINE Yes 50mg Q.82639145 Take 50 mg [facility] (APRESOLINE 7-19 [id number] [address] mouth 3 st ) 50 MG [...] (affected area in groin) hydrALAZINE Yes 50mg Q.71985420 Take 50 mg [facility] (APRESOLINE 7-[id number] mouth 3 st ) 50 MG [...] (affected area in groin) hydrALAZINE Yes 50mg Q.50029743 Take 50 mg [facility] (APRESOLINE 7-19 [id number] mouth 3 [address] ) 50 MG [...] area in groin) hydrALAZINE 0 Yes 50mg Q.50067761 Take 50 mg [facility] (APRESOLINE 7-[address] mouth 3 [address] ) 50 MG [...] area in groin) hydrALAZINE 0 Yes 50mg Q.76349182 Take 50 mg [facility] (APRESOLINE 7-[id number] mouth [address] ) 50 MG [...] (affected area in groin) hydrALAZINE Yes 50mg Q.02421125 Take 50 mg [facility] (APRESOLINE 7-[id number] mouth [address] ) 50 MG [...] tablet 25 daily. l clobetasol 0 Yes Q.5D Apply 1 Meth jason (TEMOVATE) 12-[address] 0.05 % 10:51: n [facility] ointment 25 topically l 2 (two) times a day. (affected area in groin) hydrALAZINE 0 Yes 50mg Q.26248099 Take 50 mg [facility] (APRESOLINE -19 454624[address] mouth 3 [address] ) 50 MG [...] area in groin) hydrALAZINE 2020-0 Yes 50mg Q.[id number] Take 50 mg [facility] (APRESOLINE 7-[id number] mouth 3 [address] ) 50 MG [...] (affected area in groin) hydrALAZINE Yes 50mg Q.[id number] Take 50 mg [facility] (APRESOLINE 7-[id number] mouth 3 [address] ) 50 MG [...] (affected area in groin) hydrALAZINE Yes 50mg Q.[id number] Take 50 mg [facility] (APRESOLINE 7-[address]4224[address] mouth 3 [address] ) 50 MG [...] area in groin) hydrALAZINE 0 Yes 50mg Q.[id number] Take 50 mg [facility] (APRESOLINE 7-[id number] mouth 3 [address] ) 50 MG [...] area in groin) hydrALAZINE 0 Yes 50mg Q.18866614 Take 50 mg [facility] (APRESOLINE 7-[id number] mouth [address] ) 50 MG [...] (affected area in groin) hydrALAZINE Yes 50mg Q.[id number] Take 50 mg [facility] (APRESOLINE 7-[id number] mouth [address] ) 50 MG [...] area in groin) hydrALAZINE 0 Yes 50mg Q.77814108 Take 50 mg [facility] (APRESOLINE 7-[id number] mouth 3 [address] ) 50 MG [...] area in groin) hydrALAZINE 0 Yes 50mg Q.[id number] Take 50 mg [facility] (APRESOLINE 7-[id number] mouth [address] ) 50 MG [...] (affected area in groin) hydrALAZINE Yes 50mg Q.[id number] Take 50 mg [facility] (APRESOLINE 7-[id number] mouth [facility] [address] ) 50 MG [...] [facility]osp[facility] tablet 25 l nystatin-tr 2021-0 Yes [id number] Apply to [facility] iamcinolone 7-06 area(s) 3 ity of cream 00:00: (three) [place] 00 times Medical daily. Branch nystatin-tr 2021-0 Yes [id number] Apply to [facility] iamcinolone 7-06 area(s) 3 ity of cream 00:00: (three) [place] 00 times Medical daily. Branch nystatin-tr 2021-0 Yes [id number] Apply to [facility] iamcinolone 7-06 area(s) 3 ity of cream 00:00: (three) [place] 00 times Medical daily. Branch nystatin-tr 2021-0 Yes [id number] Apply to [facility] iamcinolone 7-06 area(s) 3 ity of cream 00:00: (three) [place] 00 times Medical daily. Branch nystatin-tr 2021-0 Yes [id number] Apply to [facility] iamcinolone 7-06 area(s) 3 ity of cream 00:00: (three) [place] 00 times Medical daily. Branch nystatin-tr 2021-0 Yes [id number] Apply to [facility] iamcinolone 7-06 area(s) 3 ity of cream 00:00: (three) [place] 00 times Medical daily. Branch nystatin-tr 2021-0 Yes [id number] Apply to [facility] iamcinolone 7-06 area(s) 3 ity of cream 00:00: (three) [place] 00 times Medical daily. Branch nystatin-tr 2021-0 Yes [id number] Apply to [facility] iamcinolone 7-06 area(s) 3 ity of cream 00:00: (three) [place] 00 times Medical daily. Branch nystatin-tr 2021-0 Yes [id number] Apply to [facility] iamcinolone 7-06 area(s) 3 ity of cream 00:00: (three) [place] 00 times Medical daily. Branch nystatin-tr 2021-0 Yes [id number] Apply to [facility] iamcinolone 7-06 area(s) 3 ity of cream 00:00: (three) [place] 00 times Medical daily. Branch nystatin-tr 2021-0 Yes [id number] Apply to [facility] iamcinolone 7-06 area(s) 3 ity of cream 00:00: (three) [place] 00 times Medical daily. Branch nystatin-tr 2021-0 Yes [id number] Apply to [facility] iamcinolone 7-06 area(s) 3 ity of cream 00:00: (three) [place] 00 times Medical daily. Branch nystatin-tr 2021-0 Yes [id number] Apply to [facility] iamcinolone 7-06 area(s) 3 ity of cream 00:00: (three) [place] 00 times Medical daily. Branch nystatin-tr 2021-0 Yes [id number] Apply to [facility] iamcinolone 7-06 area(s) 3 ity of cream 00:00: (three) [place] 00 times Medical daily. Branch nystatin-tr 2021-0 Yes [id number] Apply to [facility] iamcinolone 7-06 area(s) 3 ity of cream 00:00: (three) [place] 00 times Medical daily. Branch nystatin-tr 2021-0 Yes [id number] Apply to [facility] iamcinolone 7-06 area(s) 3 ity of cream 00:00: (three) [place] 00 times Medical daily. Branch nystatin-tr 2021-0 Yes [id number] Apply to [facility] iamcinolone 7-06 area(s) 3 ity of cream 00:00: (three) [place] 00 times Medical daily. Branch nystatin-tr 2021-0 Yes [id number] Apply to [facility] iainolone 7 area(s) 3 ity of cream 00:00: (three) [place] 00 times Medical daily. Branch nystatin-tr 2020-0 Yes [id number] Apply to [facility] iainolone 7 area(s) 3 ity of cream 00:00: (three) [place] 00 times Medical daily. Branch nystatin-tr 2020-0 Yes [id number] [facility] ity of cream 00:00: (three) [place] 00 times Medical daily. Branch budesonide- 0 2021- No 1{puff} QD Inhale 1 [facility] formoteroL 6-25 06-[address] (SYMBICORT) 14:37: 00:00 morning. H ospita 160-4.5 02 :00 l mcg/actuati on inhaler hydrALAZINE 0 Yes [id number] 50mg Q.[id number] Take 1 [facility] (Apresoline 6-11 [id number] tablet (50 Health ) 50 MG 00:00: 3D mg total) tablet 00 by mouth 3 (three) times a day. hydrALAZINE Yes [id number] 50mg Q.[id number] Take 1 [facility] (Apresoline 6-11 [id number] tablet (50 Health ) 50 MG 00:00: [...] % 00:00: ointment 00 nystatin 2020- No [id number] Q.25D Take 5 mL [facility] (MYCOSTATIN 17 06- (500,000 st ) 100,000 00:00: 04:59 [...] ia 4-10 (Same as: l 14:00: Zoloft) [place] pantoprazol No Notes: Caesar lisa e 4-10 Tablet l 14:00: should not Marty 00 be chewed or crushed. (Same as: Protonix) Amiodarone No Notes: Memor ia 4-10 (Same as: l 14:00: Cordarone) [place] Amlodipine No Notes: Memor ia 4-10 (Same as: l 14:00: Norvasc) [place] 00 emtricitabi No Notes: Caesar lisa ne 200 MG / 4-10 (Same as: l tenofovir 14:00: Descovy) Herm ariel alafenamide 00 Non-formul 25 MG Oral nancy Tablet [Descovy] Sertraline No Notes: Memor ia 4-10 (Same as: l 14:00: Zoloft) [place] pantoprazol No Notes: Caesar lisa e 4-10 Tablet l 14:00: should not [place] 00 be chewed or crushed. (Same as: [...] ia 4-10 (Same as: l 14:00: Zoloft) [place] pantoprazol No Notes: Caesar lisa e 4-10 Tablet l 14:00: should not [place] 00 be chewed or crushed. (Same as: [...] e 4-10 Tablet l 14:00: should not [place] 00 be chewed or crushed. (Same as: [...] e 4-10 Tablet l 14:00: should not [place] 00 be chewed or crushed. (Same as: Protonix) Amiodarone No Notes: Memor ia 4-10 (Same as: l 14:00: Cordarone) [place] 00 Sucralfate No Notes: May M emoria 4-10 interfere l 02:00: w/enteral [place] 00 feeds - Take 1 hr before [...] Memoria 4-10 Same as: l 02:00: Eliquis [place] 00 Hydralazine No Notes: Caesar lisa Hydrochlori 4-10 (Same as: l de 50 MG 02:00: Apresoline Her mitchell Oral Tablet 00 ) May interfere w/enteral feedings Take With Food Sucralfate No Notes: May M emoria 4-10 interfere l 02:00: w/enteral [place] 00 feeds - Take 1 hr before [...] 0.9% 4-10 (Same as: l 02:00: BD [place] 00 Posiflush) Eliquis No Notes: Memoria 4-10 Same as: l 02:00: Eliquis [place] Hydralazine No Notes: Caesar lisa Hydrochlori 4-10 (Same as: l de 50 MG 02:00: Apresoline Her mitchell Oral Tablet 00 ) May interfere w/enteral feedings Take With Food Sucralfate No Notes: May M emoria 4-10 interfere l 02:00: w/enteral [place] 00 feeds - Take 1 hr before or 2 hr after antacids, dairy pdt, meals & minerals - On empty stomach. For patients unable to swallow tablet, dissolve in 10mL - 30mL of water or juice and stir before giving. (Same As: Carafate) Saline No Notes: [facility] Flush 0.9% 4-10 (Same as: l 02:00: BD [place] Posiflush) Eliquis No Notes: [facility]oria 4-10 Same as: l 02:00: Eliquis [place] Hydralazine No Notes: Caesar lisa Hydrochlori 4-10 [...] M emoria 4-10 interfere l 02:00: w/enteral [place] 00 feeds - Take 1 hr before [...] Memoria 4-10 Same as: l 02:00: Eliquis [place] Hydralazine No Notes: Caesar lisa Hydrochlori 4-10 (Same as: l de 50 MG 02:00: Apresoline Her mitchell Oral Tablet 00 ) May interfere w/enteral feedings Take With Food acetaminoph No Notes: Do M emoria en-codeine 4-10 not exceed l #3 00:12: 4gm/day of [place] acetaminop hen. (Same as: Tylenol with Codeine # 3) acetaminoph No Notes: Do M emoria en-codeine 4-10 not exceed l #3 00:12: 4gm/day of [place] acetaminop hen. (Same as: Tylenol with Codeine # 3) acetaminoph No Notes: Do M emoria en-codeine 4-10 not exceed l #3 00:12: 4gm/day of [place] acetaminop hen. (Same as: Tylenol with Codeine [...] not exceed l #3 00:12: 4gm/day of [place] acetaminop hen. (Same as: Tylenol with Codeine [...] tartrate 4-09 tab, l 22:00: Route: PO, [place] 00 Drug form: TAB, BID, Dosing Weight [...] oria 4-09 tab, l 22:00: Route: PO, [place] 00 Drug form: TAB, BID, Dosing Weight [...] oria 4- tab, l 22:00: Route: PO, [place] Drug form: TAB, BID, Dosing Weight 97.273, [...] l Tablet 22:00: Route: PO, Skylar nn [facility] Drug form: TAB, BID, Dosing Weight 97.273, kg, Start date: 08/29/20 17:00:00 CDT, Duration: 30 day, Stop date: 09/28/20 9:00:00 CDT, 0 Buspirone 1-0 No Notes: Memori a 08-29 (Same As: l 22:00: BuSpar) Lisinopril 1-0 No 40 mg, 1 Mem oria 4- tab, l 22:00: Route: PO, [place] 00 Drug form: TAB, BID, Dosing Weight 97.273, kg, Start date: 08/29/20 17:00:00 CDT, Duration: 30 day, Stop date: 09/28/20 9:00:00 CDT metoprolol 2021-0 No 100 mg, 1 Me moria tartrate 4-09 tab, l 22:00: Route: PO, [place] 00 Drug form: TAB, BID, Dosing Weight [...] oria 4-09 tab, l 22:00: Route: PO, [place] Drug form: TAB, BID, Dosing Weight 97.273, kg, Start date: 08/29/20 17:00:00 CDT, Duration: 30 day, Stop date: 09/28/20 9:00:00 CDT metoprolol 1-0 No 100 mg, 1 Me moria tartrate 4-09 tab, l 22:00: Route: PO, [place] Drug form: TAB, BID, Dosing Weight 97.273, [...] a 08-29 (Same As: l 22:00: BuSpar) [place] 00 Lisinopril 2020-0 No 40 mg, 1 Mem oria 4-09 tab, l 22:00: Route: PO, Marty Drug form: TAB, BID, Dosing Weight 97.273, kg, Start date: 08/29/20 17:00:00 CDT, Duration: 30 day, Stop date: 09/28/20 9:00:00 CDT metoprolol 2020-0 No 100 mg, 1 Me moria tartrate 4-09 tab, l 22:00: Route: PO, [place] 00 Drug form: TAB, BID, Dosing Weight [...] Notes: Memoria 08-29 (Same l 17:07: as:MORPhin [place] 00 e Sulfate) Morphine No Notes: Memoria 4-09 (Same l 17:07: as:MORPhin [place] 00 e Sulfate) Morphine No Notes: Memoria 4-09 (Same l 17:07: as:MORPhin [place] 00 e Sulfate) Morphine No Notes: Memoria 4- (Same l 17:07: as:MORPhin [place] 00 e Sulfate) Morphine No Notes: Memoria 4-09 (Same l 17:07: as:MORPhin [place] 00 e Sulfate) Morphine No Notes: [facility]oria 4-09 (Same l 17:07: as:MORPhin [place] 00 e Sulfate) Morphine No Notes: Memoria 4- (Same l 17:07: as:MORPhin [place] 00 e Sulfate) buPROPion No 150 mg, [...] 30 tab, 0 coated Refill(s), tablet Pharmacy: [facility] 149, 162.56, cm, 08/29/20 5:30:00 CDT, Height, 97.273, kg, 08/29/20 5:30:00 CDT, Weight pantoprazol 0 Yes 40 mg = 1 M emoria e 40 mg 4-09 tab, PO, l oral 15:27: Daily, # Maryt enteric 00 30 tab, 0 coated Refill(s), tablet Pharmacy: [facility] 149, 162.56, cm, 08/29/20 5:30:00 CDT, Height, 97.273, kg, 08/29/20 5:30:00 CDT, Weight pantoprazol 2020-0 Yes 40 mg = 1 M emoria e 40 mg 4-09 tab, PO, l oral 15:27: Daily, # [place] enteric 00 30 tab, 0 coated Refill(s), tablet Pharmacy: [facility] 149, 162.56, cm, 08/29/20 5:30:00 CDT, Height, 97.273, kg, 08/29/20 5:30:00 CDT, Weight pantoprazol 2021-0 Yes 40 mg = 1 M emoria e 40 mg 4-09 tab, PO, l oral 15:27: Daily, # [place] enteric 00 30 tab, 0 coated Refill(s), tablet Pharmacy: [facility] 149, 162.56, cm, 08/29/20 5:30:00 CDT, Height, 97.273, kg, 08/29/20 5:30:00 CDT, Weight pantoprazol 2021-0 Yes 40 mg = 1 M emoria e 40 mg 4-09 tab, PO, l oral 15:27: Daily, # [place] enteric 00 30 tab, 0 coated Refill(s), tablet Pharmacy: [facility] 149, 162.56, cm, 08/29/20 5:30:00 CDT, Height, 97.273, kg, 08/29/20 5:30:00 CDT, Weight pantoprazol 2021-0 Yes 40 mg = 1 M emoria e 40 mg 4-09 tab, PO, l oral 15:27: Daily, # [place] enteric 00 30 tab, 0 coated Refill(s), tablet Pharmacy: [facility] 149, 162.56, cm, 08/29/20 5:30:00 CDT, Height, 97.273, kg, 08/29/20 5:30:00 CDT, Weight pantoprazol 2021-0 Yes 40 mg = 1 M emoria e 40 mg 4-09 tab, PO, l oral 15:27: Daily, # [place] enteric 00 30 tab, 0 coated Refill(s), tablet Pharmacy: [facility] 149, 162.56, cm, 08/29/20 [...] Skylar nn 00 tab, 0 Refill(s), Pharmacy: [facility] 149, 162.56, cm, 08/29/20 5:30:00 [...] Skylar nn 00 tab, 0 Refill(s), Pharmacy: [facility] 149, 162.56, cm, 08/29/20 5:30:00 CDT, Height, 97.273, kg, 08/29/20 5:30:00 CDT, Weight pantoprazol 2020-0 No 40 mg = 1 M emoria e 40 mg 4-09 tab, PO, l oral 15:26: Daily, # [place] enteric 00 30 tab, 0 coated Refill(s) tablet sucralfate 2020-0 Yes 1 gm = 1 Mem oria 1 g oral 4-09 tab, PO, l tablet 15:26: Q12H, # 28 Skylar nn 00 tab, 0 Refill(s), Pharmacy: [place] [id number], 162.56, cm, 08/29/20 5:30:00 CDT, Height, 97.273, [...] Skylar nn 00 tab, 0 Refill(s), Pharmacy: [facility] 149, 162.56, cm, 08/29/20 5:30:00 CDT, Height, 97.273, kg, 08/29/20 5:30:00 CDT, Weight pantoprazol 2020-0 No 40 mg = 1 M emoria e 40 mg 4-09 tab, PO, l oral 15:26: Daily, # [place] enteric 00 30 tab, 0 coated Refill(s) tablet sucralfate 2020-0 Yes 1 gm = 1 Mem oria 1 g oral 4-09 tab, PO, l tablet 15:26: Q12H, # 28 Skylar nn 00 tab, 0 Refill(s), Pharmacy: [facility] 149, 162.56, cm, 08/29/20 5:30:00 [...] 00 tab, 0 Refill(s), Pharmacy: [place] [id number], 162.56, cm, 08/29/20 5:30:00 CDT, Height, 97.273, [...] Skylar nn 00 tab, 0 Refill(s), Pharmacy: [facility] 149, 162.56, cm, 08/29/20 5:30:00 CDT, Height, 97.273, kg, 08/29/20 5:30:00 CDT, Weight Saline No Notes: Memoria Flush 0.9% 4-09 (Same as: l 15:25: BD [place] 00 Posiflush) Lorazepam No Notes: Memori a 4-09 (Same as: l 15:25: Ativan) [place] Saline No Notes: Memoria Flush 0.9% 4-09 (Same as: l 15:25: BD Marty 00 Posiflush) Lorazepam No Notes: Memori a 4-09 (Same as: l 15:25: Ativan) [place] Saline No Notes: Memoria Flush 0.9% 4-09 (Same as: l 15:25: BD [place] 00 Posiflush) Saline No Notes: Memoria Flush 0.9% 4-09 (Same as: l 15:25: BD Marty 00 Posiflush) Lorazepam No Notes: Memori a 4-09 (Same as: l 15:25: Ativan) [place] Lorazepam No Notes: Memori a 4-09 (Same as: l 15:25: Ativan) Marty Saline No Notes: Memoria Flush 0.9% 4-09 (Same as: l 15:25: BD [place] 00 Posiflush) Lorazepam No Notes: Memori a 4-09 (Same as: l 15:25: Ativan) Marty Saline No Notes: Memoria Flush 0.9% 4-09 (Same as: l 15:25: BD Marty 00 Posiflush) Lorazepam No Notes: Memori a 4-09 (Same as: l 15:25: Ativan) [place] Saline No Notes: Memoria Flush 0.9% 4-09 [...] Drug form: l mg + 15:00: INJ, [place] Dosing Weight 97.3, kg, Start date: 08/29/20 [...] Drug form: l mg + 15:00: INJ, [place] Dosing Weight 97.3, kg, Start date: 08/29/20 10:00:00 CDT, Stop date: 08/29/20 11:00:00 CDT Isuprel HCl 2020-0 No Route: IV, Memoria (ANES) 0.2 08-29 Drug form: l mg + 15:00: INJ, [place] Dosing Weight 97.3, kg, Start date: 08/29/20 [...] 08-29 Drug form: l 14:18: INJ, ONCE, [place] 00 Stop date: 08/29/20 9:18:00 CDT Labetalol 2020-0 No 10 mg, Memori a 08-29 Route: l 14:01: IVP, [place] 00 Q5Min, Dosing Weight 97.273, kg, PRN Elevated BP, Start date: 08/29/20 9:01:00 CDT, Duration: 5 doses or times, Stop date: Limited # of times Acetaminoph 2020-0 No 1,000 mg, M emoria en 08-29 Route: PO, l 14:01: Drug form: [place] 00 TAB, ONCE, Dosing Weight 97.273, kg, [...] oria ne 08-29 Route: l 14:01: IVP, [place] 00 Q5Min, Dosing Weight 97.273, kg, PRN Pain Score 7-10, Start date: 08/29/20 9:01:00 CDT, Duration: 4 doses or times, Stop date: Limited # of times Flumazenil 2020-0 No 0.2 mg, Caesar lisa 08-29 Route: l 14:01: IVP, PRN, [place] 00 Dosing Weight 97.273, kg, PRN Benzodiaze [...] ia 08-29 Route: l 14:01: IVP, ONCE, [place] 00 Dosing Weight 97.273, kg, PRN Nausea & Vomiting, Start date: 08/29/20 9:01:00 CDT Labetalol 1-0 No 10 mg, Memori a 08-29 Route: l 14:01: IVP, [place] 00 Q5Min, Dosing Weight 97.273, kg, PRN [...] ia 08-29 Route: l 14:01: IVP, ONCE, [place] 00 Dosing Weight 97.273, kg, PRN Nausea [...] lisa 08-29 Route: l 14:01: IVP, PRN, [place] 00 Dosing Weight 97.273, kg, PRN Benzodiaze [...] oria ne 08-29 Route: l 14:01: IVP, [place] 00 Q5Min, Dosing Weight 97.273, kg, PRN Pain Score 7-10, Start date: 08/29/20 9:01:00 CDT, Duration: 4 doses or times, Stop date: Limited # of times Labetalol 2021-0 No 10 mg, Memori a 08-29 Route: l 14:01: IVP, [place] 00 Q5Min, Dosing Weight 97.273, kg, PRN Elevated BP, Start date: 08/29/20 9:01:00 CDT, Duration: 5 doses or times, Stop date: Limited # of times Acetaminoph 2021-0 No 1,000 mg, M emoria en 08-29 Route: PO, l 14:01: Drug form: [place] 00 TAB, ONCE, Dosing Weight 97.273, kg, [...] oria ne 08-29 Route: l 14:01: IVP, Niles 00 Q5Min, Dosing Weight 97.273, kg, PRN [...] lisa 08-29 Route: l 14:01: IVP, PRN, [place] 00 Dosing Weight 97.273, kg, PRN Benzodiaze pine Reversal, Initial dose, Start date: 08/29/20 9:01:00 CDT, Duration: 30 day, Stop date: 09/28/20 9:00:00 CDT Ondansetron 2021-0 No 4 mg, Memor ia 08-29 Route: l 14:01: IVP, ONCE, [place]iles 00 Dosing Weight 97.273, kg, PRN Nausea & Vomiting, Start date: 08/29/20 9:01:00 CDT Naloxone 2021-0 No 0.4 mg, Memori a 08-29 Route: l 14:01: IVP, Niles 00 Q2MIN, Dosing Weight 97.273, kg, PRN Narcotic Reversal, Start date: 08/29/20 9:01:00 CDT, Duration: 8 doses or times, Stop date: Limited # of times Ondansetron 2021-0 No 4 mg, Memor ia 08-29 Route: l 14:01: IVP, ONCE, [place]iles 00 Dosing Weight 97.273, kg, PRN Nausea [...] 08-29 Route: PO, l 14:01: Drug form: Niles 00 TAB, ONCE, Dosing Weight 97.273, kg, [...] oria ne 08-29 Route: l 14:01: IVP, [place] 00 Q5Min, Dosing Weight 97.273, kg, PRN Pain Score 7-10, Start date: 08/29/20 9:01:00 CDT, Duration: 4 doses or times, Stop date: Limited # of times Flumazenil 2020-0 No 0.2 mg, Caesar lisa 08-29 Route: l 14:01: IVP, PRN, [place] 00 Dosing Weight 97.273, kg, PRN Benzodiaze pine Reversal, Initial dose, Start date: 08/29/20 9:01:00 CDT, Duration: 30 day, Stop date: 09/28/20 9:00:00 CDT Naloxone 1-0 No 0.4 mg, Memori a 08-29 Route: l 14:01: IVP, [place] 00 Q2MIN, Dosing Weight 97.273, kg, PRN [...] 08-29 Route: PO, l 14:01: Drug form: Niles 00 TAB, ONCE, Dosing Weight 97.273, kg, [...] oria ne 08-29 Route: l 14:01: IVP, [place] 00 Q5Min, Dosing Weight 97.273, kg, PRN [...] ia 08-29 Route: l 14:01: IVP, ONCE, [place] 00 Dosing Weight 97.273, kg, PRN Nausea [...] Drug form: l 10 13:15: INJ, Start [place] microgram date: 08/29/20 8:15:00 CDT, Stop date: [...] Drug form: l 10 13:15: INJ, Start [place] microgram 00 date: 08/29/20 8:15:00 CDT, Stop [...] 4-09 Total l 0.9% IV 12:30: Volume: [place] (ANES) 1000 00 1,000, mL Start date: 08/29/20 7:30:00 CDT, Stop date: 08/29/20 8:30:00 CDT Sodium 2020-0 No Route: IV, Memor ia Chloride 4-09 Total l 0.9% IV 12:30: Volume: [place] (ANES) 1000 00 1,000, mL Start date: 08/29/20 7:30:00 CDT, Stop date: 08/29/20 8:30:00 CDT Sodium 2021-0 No Route: IV, [facility] Chloride 4-09 Total l 0.9% IV 12:30: Volume: [place] (ANES) 1000 00 1,000, mL Start date: 08/29/20 7:30:00 CDT, Stop date: 08/29/20 8:30:00 CDT Sodium 2021-0 No Route: IV, [facility] Chloride 4-09 Total l 0.9% IV 12:30: Volume: Marty (ANES) 1000 00 1,000, mL Start date: 08/29/20 7:30:00 CDT, Stop date: 08/29/20 8:30:00 CDT Sodium 2021-0 No Route: IV, Mem[facility] Chloride 4-09 Total l 0.9% IV 12:30: Volume: [place] (ANES) 1000 00 1,000, mL Start date: [...] PO, l Hydrochlori 11:42: Q24H, # 30 [place] de 150 MG 00 tab, 0 Extended [...] PO, l Hydrochlori 11:42: Q24H, # 30 [place] de 150 MG 00 tab, 0 Extended Refill(s) Release Tablet 24 HR Yes 150 mg = 1 Memori a Bupropion 4-09 tab, PO, l Hydrochlori 11:42: Q24H, # 30 [place] de 150 MG 00 tab, 0 Extended [...] 08-29 Q12H, tab, l Tablet 11:41: 0 [place] [Eliquis] 00 Refill(s), For Atrial Fibrilatio n apixaban 5 2020-0 Yes 5 mg, PO, Me moria MG Oral 08-29 Q12H, tab, l Tablet 11:41: 0 [place] [Eliquis] 00 Refill(s), For Atrial Fibrilatio n apixaban 5 2020-0 Yes 5 mg, PO, Me moria MG Oral 08-29 Q12H, tab, l Tablet 11:41: 0 [place] [Eliquis] 00 Refill(s), For Atrial Fibrilatio n apixaban 5 2020-0 Yes 5 mg, PO, Me moria MG Oral 08-29 Q12H, tab, l Tablet 11:41: 0 [place] [Eliquis] 00 Refill(s), For Atrial Fibrilatio n apixaban 5 2020-0 Yes 5 mg, PO, Me moria MG Oral 08-29 Q12H, tab, l Tablet 11:41: 0 [place] [Eliquis] 00 Refill(s), For Atrial Fibrilatio n [...] tab, PO, l tablet 11:38: Daily, # [place] 00 90 tab, 3 Refill(s) AMIODarone 2020-0 Yes 200 mg = 1 M emoria 200 mg oral 4-09 tab, PO, l tablet 11:38: Daily, # [place] 00 90 tab, 3 Refill(s) normal No [...] mcg/actuati 00:00: on inhaler [facility] albuterol 2019- Yes albuterol [place] (2.5 2-11 [...] Immunizations Ordered Filled Immunization Date Status Comments [facility] e Immunization Name Name SARS-COV-2 [...] [facility] 65+ PFIZER COVID-19 2020-07-23 Completed [facility] MRNA VACCINATION 00:00:00 [facility] PFIZER COVID-19 2020-07-23 Completed [facility] MRNA VACCINATION 00:00:00 [facility] PFIZER COVID-19 2020-07-23 Completed [facility] MRNA VACCINATION 00:00:00 [facility] PFIZER COVID-19 2020-07-23 Completed [facility] MRNA VACCINATION 00:00:00 [facility] PFIZER COVID-19 2020-07-23 Completed [facility] MRNA VACCINATION 00:00:00 [facility] PFIZER COVID-19 2020-07-23 Completed [facility] MRNA VACCINATION 00:00:00 [facility] PFIZER COVID-19 2020-07-23 Completed [facility] MRNA VACCINATION 00:00:00 [facility] PFIZER COVID-19 2020-07-23 Completed [facility] MRNA VACCINATION 00:00:00 [facility] PFIZER COVID-19 2020-07-23 Completed [facility] MRNA VACCINATION 00:00:00 [facility] PFIZER COVID-19 2020-07-23 Completed [facility] MRNA VACCINATION 00:00:00 [facility] PFIZER COVID-19 2020-07-23 Completed [facility] MRNA VACCINATION 00:00:00 [facility] PFIZER COVID-19 2020-07-23 Completed [facility] MRNA VACCINATION 00:00:00 [facility] PFIZER COVID-19 2020-07-23 Completed [facility] MRNA VACCINATION 00:00:00 [facility] PFIZER COVID-19 2020-07-23 Completed [facility] MRNA VACCINATION 00:00:00 [facility] PEG COVID-19 2020-07-23 Completed [facility] MRNA VACCINATION 00:00:00 [facility] PEG COVID-19 2020-07-23 Completed [facility] MRNA VACCINATION 00:00:00 [facility] PEG COVID-19 2020-07-23 Completed [facility] MRNA VACCINATION 00:00:00 [facility] PFIZER COVID-19 2020-07-23 Completed [facility] MRNA VACCINATION 00:00:00 [facility] PFIZER COVID-19 2020-07-23 Completed [facility] MRNA VACCINATION 00:00:00 [facility] PFIZER COVID-19 2020-07-23 Completed [facility] MRNA VACCINATION 00:00:00 [facility] PEG COVID-19 2020-07-23 Completed [facility] MRNA VACCINATION 00:00:00 [facility] PFIZER COVID-19 2020-07-23 Completed [facility] MRNA VACCINATION 00:00:00 [facility] PFIZER COVID-19 2020-07-23 Completed [facility] MRNA VACCINATION 00:00:00 [facility] PFIZER COVID-19 2020-07-23 Completed [facility] MRNA VACCINATION 00:00:00 [facility] PFIZER COVID-19 2020-07-23 Completed [facility] MRNA VACCINATION 00:00:00 [facility] PFIZER COVID-19 2020-07-23 Completed [facility] MRNA VACCINATION 00:00:00 [facility] PFIZER COVID-19 2020-07-23 Completed [facility] MRNA VACCINATION 00:00:00 [facility] PFIZER COVID-19 2020-07-23 Completed [facility] MRNA VACCINATION 00:00:00 [facility] PFIZER COVID-19 2020-07-23 Completed [facility] MRNA VACCINATION 00:00:00 [facility] PFIZER COVID-19 2020-07-23 Completed [facility] MRNA VACCINATION 00:00:00 [facility] PFIZER COVID-19 2020-07-23 Completed [facility] MRNA VACCINATION 00:00:00 [facility] PFIZER COVID-19 2020-07-23 Completed [facility] MRNA VACCINATION 00:00:00 [facility] PFIZER COVID-19 2020-07-23 Completed [facility] MRNA VACCINATION 00:00:00 [facility] PFIZER COVID-19 2020-07-23 Completed [facility] MRNA VACCINATION 00:00:00 [facility] PFIZER COVID-19 2020-07-23 Completed [facility] MRNA VACCINATION 00:00:00 [facility] PFIZER COVID-19 2020-07-23 Completed [facility] MRNA VACCINATION 00:00:00 [facility] PFIZER COVID-19 2020-07-23 Completed [facility] MRNA VACCINATION 00:00:00 [facility] PFIZER COVID-19 2020-07-23 Completed [facility] MRNA VACCINATION 00:00:00 [facility] PFIZER COVID-19 2020-07-23 Completed [facility] MRNA VACCINATION 00:00:00 [facility] PFIZER COVID-19 2020-07-23 Completed [facility] MRNA VACCINATION 00:00:00 [facility] PFIZER COVID-19 2020-07-23 Completed [facility] MRNA VACCINATION 00:00:00 [facility] PFIZER COVID-19 2020-07-23 Completed [facility] MRNA VACCINATION 00:00:00 [facility] SARS-COV-2 COVID-19 2020-07-23 Completed Unive rsity of PFIZER VACCINE 00:00:00 [facility] SARS-COV-2 COVID-19 2020-07-23 Completed Unive rsity of PFIZER VACCINE 00:00:00 [facility] SARS-COV-2 COVID-19 2020-07-23 Completed Unive rsity of PFIZER VACCINE 00:00:00 [facility] SARS-COV-2 COVID-19 2020-07-23 Completed Unive rsity of PFIZER VACCINE 00:00:00 [facility] SARS-COV-2 COVID-19 2020-07-23 Completed Unive rsity of PFIZER VACCINE 00:00:00 [facility] SARS-COV-2 COVID-19 2020-07-23 Completed [facility]ive rsity of PFIZER VACCINE 00:00:00 [facility] SARS-COV-2 COVID-19 2020-07-23 Completed [facility]ive rsity of PFIZER VACCINE 00:00:00 [facility] SARS-COV-2 COVID-19 2020-07-23 Completed [facility]ive rsity of PFIZER VACCINE 00:00:00 [facility] SARS-COV-2 COVID-19 2020-07-23 Completed Unive rsity of PFIZER VACCINE 00:00:00 [facility] SARS-COV-2 COVID-19 2020-07-23 Completed [facility]ive rsity of PFIZER VACCINE 00:00:00 [facility] SARS-COV-2 COVID-19 2020-07-23 Completed Unive rsity of PFIZER VACCINE 00:00:00 [facility] SARS-COV-2 COVID-19 2020-07-23 Completed Unive rsity of PFIZER VACCINE 00:00:00 [facility] SARS-COV-2 COVID-19 2020-07-23 Completed Unive rsity of PFIZER VACCINE 00:00:00 [facility] SARS-COV-2 COVID-19 2020-07-23 Completed Unive rsity of PFIZER VACCINE 00:00:00 [facility] SARS-COV-2 COVID-19 2020-07-23 Completed Unive rsity of PFIZER VACCINE 00:00:00 [facility] SARS-COV-2 COVID-19 2020-07-23 Completed Unive rsity of PFIZER VACCINE 00:00:00 [facility] PFIZER COVID-19 2020-07-23 Completed [facility] MRNA VACCINATION 00:00:00 [facility] PFIZER COVID-19 2020-07-02 Completed [facility] MRNA VACCINATION 00:00:00 [facility] PFIZER COVID-19 2020-07-02 Completed [facility] MRNA VACCINATION 00:00:00 [facility] PFIZER COVID-19 2020-07-02 Completed [facility] MRNA VACCINATION 00:00:00 [facility] PFIZER COVID-19 2020-07-02 Completed [facility] MRNA VACCINATION 00:00:00 [facility] PFIZER COVID-19 2020-07-02 Completed [facility] MRNA VACCINATION 00:00:00 [facility] PFIZER COVID-19 2020-07-02 Completed [facility] MRNA VACCINATION 00:00:00 [facility] PFIZER COVID-19 2020-07-02 Completed [facility] MRNA VACCINATION 00:00:00 [facility] PFIZER COVID-19 2020-07-02 Completed [facility] MRNA VACCINATION 00:00:00 [facility] PFIZER COVID-19 2020-07-02 Completed [facility] MRNA VACCINATION 00:00:00 [facility] PFIZER COVID-19 2020-07-02 Completed [facility] MRNA VACCINATION 00:00:00 [facility] PFIZER COVID-19 2020-07-02 Completed [facility] MRNA VACCINATION 00:00:00 [facility] PFIZER COVID-19 2020-07-02 Completed [facility] MRNA VACCINATION 00:00:00 [facility] PFIZER COVID-19 2020-07-02 Completed [facility] MRNA VACCINATION 00:00:00 [facility] PFIZER COVID-19 2020-07-02 Completed [facility] MRNA VACCINATION 00:00:00 [facility] PFIZER COVID-19 2020-07-02 Completed [facility] MRNA VACCINATION 00:00:00 [facility] PFIZER COVID-19 2020-07-02 Completed [facility] MRNA VACCINATION 00:00:00 [facility] PFIZER COVID-19 2020-07-02 Completed [facility] MRNA VACCINATION 00:00:00 [facility] PFIZER COVID-19 2020-07-02 Completed [facility] MRNA VACCINATION 00:00:00 [facility] PFIZER COVID-19 2020-07-02 Completed [facility] MRNA VACCINATION 00:00:00 [facility] PFIZER COVID-19 2020-07-02 Completed [facility] MRNA VACCINATION 00:00:00 [facility] PFIZER COVID-19 2020-07-02 Completed [facility] MRNA VACCINATION 00:00:00 [facility] PFIZER COVID-19 2020-07-02 Completed [facility] MRNA VACCINATION 00:00:00 [facility] PFIZER COVID-19 2020-07-02 Completed [facility] MRNA VACCINATION 00:00:00 [facility] PFIZER COVID-19 2020-07-02 Completed [facility] MRNA VACCINATION 00:00:00 [facility] PFIZER COVID-19 2020-07-02 Completed [facility] MRNA VACCINATION 00:00:00 [facility] PFIZER COVID-19 2020-07-02 Completed [facility] MRNA VACCINATION 00:00:00 [facility] PFIZER COVID-19 2020-07-02 Completed [facility] MRNA VACCINATION 00:00:00 [facility] PFIZER COVID-19 2020-07-02 Completed [facility] MRNA VACCINATION 00:00:00 [facility] PFIZER COVID-19 2020-07-02 Completed [facility] MRNA VACCINATION 00:00:00 [facility] PFIZER COVID-19 2020-07-02 Completed [facility] MRNA VACCINATION 00:00:00 [facility] PFIZER COVID-19 2020-07-02 Completed [facility] MRNA VACCINATION 00:00:00 [facility] PFIZER COVID-19 2020-07-02 Completed [facility] MRNA VACCINATION 00:00:00 [facility] PFIZER COVID-19 2020-07-02 Completed [facility] MRNA VACCINATION 00:00:00 [facility] PFIZER COVID-19 2020-07-02 Completed [facility] MRNA VACCINATION 00:00:00 [facility] PFIZER COVID-19 2020-07-02 Completed [facility] MRNA VACCINATION 00:00:00 [facility] PFIZER COVID-19 2020-07-02 Completed [facility] MRNA VACCINATION 00:00:00 [facility] PFIZER COVID-19 2020-07-02 Completed [facility] MRNA VACCINATION 00:00:00 [facility] PFIZER COVID-19 2020-07-02 Completed [facility] MRNA VACCINATION 00:00:00 [facility] PFIZER COVID-19 2020-07-02 Completed [facility] MRNA VACCINATION 00:00:00 [facility] PFIZER COVID-19 2020-07-02 Completed [facility] MRNA VACCINATION 00:00:00 [facility] PFIZER COVID-19 2020-07-02 Completed [facility] MRNA VACCINATION 00:00:00 [facility] PFIZER COVID-19 2020-07-02 Completed [facility] MRNA VACCINATION 00:00:00 [facility] SARS-COV-2 COVID-19 2020-07-02 Completed [facility] of PFIZER VACCINE 00:00:00 [facility] SARS-COV-2 COVID-19 2020-07-02 Completed Unive rsity of PFIZER VACCINE 00:00:00 [facility] SARS-COV-2 COVID-19 2020-07-02 Completed [facility]ive rs[facility] of PFIZER VACCINE 00:00:00 [facility] SARS-COV-2 COVID-19 2020-07-02 Completed [facility]ive rs[facility] of PFIZER VACCINE 00:00:00 [facility] SARS-COV-2 COVID-19 2020-07-02 Completed [facility]ive rs[facility] of PFIZER VACCINE 00:00:00 [facility] SARS-COV-2 COVID-19 2020-07-02 Completed [facility]ive rs[facility] of PFIZER VACCINE 00:00:00 [facility] SARS-COV-2 COVID-19 2020-07-02 Completed [facility]ive rs[facility] of PFIZER VACCINE 00:00:00 [facility] SARS-COV-2 COVID-19 2020-07-02 Completed [facility] rs[facility] of PFIZER VACCINE 00:00:00 [facility] SARS-COV-2 COVID-19 2020-07-02 Completed [facility]ive rsity of PFIZER VACCINE 00:00:00 [facility] SARS-COV-2 COVID-19 2020-07-02 Completed Unive rs[facility] of PFIZER VACCINE 00:00:00 [facility] SARS-COV-2 COVID-19 2020-07-02 Completed Unive rs[facility] of PFIZER VACCINE 00:00:00 [facility] SARS-COV-2 COVID-19 2020-07-02 Completed [facility]ive rs[facility] of PFIZER VACCINE 00:00:00 [facility] SARS-COV-2 COVID-19 2020-07-02 Completed Unive rsity of PFIZER VACCINE 00:00:00 [facility] SARS-COV-2 COVID-19 2020-07-02 Completed [facility]ive rs[facility] of PFIZER VACCINE 00:00:00 [facility] SARS-COV-2 COVID-19 2020-07-02 Completed [facility] of PFIZER VACCINE 00:00:00 [facility] SARS-COV-2 COVID-19 2020-07-02 Completed [facility] of PFIZER VACCINE 00:00:00 [facility] PFIZER COVID-19 2020-07-02 Completed [facility] MRNA VACCINATION 00:00:00 [facility] Influenza Virus 2017-03-08 Completed Universit [facility] Vaccine 00:00:00 [facility] Influenza Virus 2017-03-08 Completed [facility] y of Vaccine 00:00:00 [facility] Influenza Virus 2017-03-08 Completed [facility] y of Vaccine 00:00:00 [facility] Influenza Virus 2017-03-08 Completed [facility] y of Vaccine 00:00:00 [facility] Influenza Virus 2017-03-08 Completed [facility] y of Vaccine 00:00:00 [facility] Influenza Virus 2017-03-08 Completed [facility] y of Vaccine 00:00:00 [facility] Influenza Virus 2017-03-08 Completed [facility] y of Vaccine 00:00:00 [facility] Influenza Virus 2017-03-08 Completed [facility] y of Vaccine 00:00:00 [facility] Influenza Virus 2017-03-08 Completed [facility] y of Vaccine 00:00:00 [facility] Influenza Virus 2017-03-08 Completed [facility] y of Vaccine 00:00:00 [facility] Influenza Virus 2017-03-08 Completed [facility] y of Vaccine 00:00:00 [facility] Influenza Virus 2017-03-08 Completed [facility] y of Vaccine 00:00:00 [facility] Influenza Virus 2017-03-08 Completed [facility] y of Vaccine 00:00:00 [facility] Influenza Virus 2017-03-08 Completed [facility] y of Vaccine 00:00:00 [facility] Influenza Virus 2017-03-08 Completed [facility] y of Vaccine 00:00:00 [facility] Influenza Virus 2017-03-08 Completed [facility] y of Vaccine 00:00:00 [facility] Influenza Virus 2017-03-08 Completed [facility] y of Vaccine 00:00:00 [facility] Influenza Virus 2017-03-08 Completed [facility] y of Vaccine 00:00:00 [facility] Influenza Virus 2017-03-08 Completed [facility] y of Vaccine 00:00:00 [facility] Influenza Virus 2017-03-08 Completed [facility] y of Vaccine 00:00:00 [facility] Influenza Virus 2014-01-30 Completed [facility] y of Vaccine (3+ yrs) 00:00:00 [facility] Pneumococcal 13 2014-01-30 Completed Universit y of Conjugate, PCV13 00:00:00 [facility]ical (Prevnar 13) Branch Influenza Virus 2014-01-30 Completed [facility] y of Vaccine (3+ yrs) 00:00:00 [facility] Pneumococcal 13 2014-01-30 Completed [facility] y of Conjugate, PCV13 00:00:00 [facility] (Prevnar 13) Branch Influenza Virus 2014-01-30 Completed [facility] y of Vaccine (3+ yrs) 00:00:00 [facility] Pneumococcal 13 2014-01-30 Completed [facility] y of Conjugate, PCV13 00:00:00 [facility] (Prevnar 13) Branch Influenza Virus 2014-01-30 Completed [facility] y of Vaccine (3+ yrs) 00:00:00 [facility] Pneumococcal 13 2014-01-30 Completed Universit y of Conjugate, PCV13 00:00:00 [facility] (Prevnar 13) Branch Influenza Virus 2014-01-30 Completed [facility] y of Vaccine (3+ yrs) 00:00:00 [facility] Pneumococcal 13 2014-01-30 Completed Universit [...] y of Conjugate, PCV13 00:00:00 [facility] (Prevnar 13) Branch Influenza Virus 2014-01-30 Completed Univers[facility] y of Vaccine (3+ yrs) 00:00:00 [facility] Branch Pneumococcal 13 2014-01-30 Completed Universit y of Conjugate, PCV13 00:00:00 [facility] (Prevnar 13) Branch Influenza Virus 2014-01-30 Completed Universit y of Vaccine (3+ yrs) 00:00:00 [facility] Branch Pneumococcal 13 2014-01-30 Completed Univers[facility] y of Conjugate, PCV13 00:00:00 [facility] (Prevnar 13) Branch Influenza Virus 2014-01-30 Completed Univers[facility] y of Vaccine (3+ yrs) 00:00:00 [facility] Branch Pneumococcal 13 2014-01-30 Completed [facility] of Conjugate, PCV13 00:00:00 [facility] (Prevnar 13) [facility] Influenza Virus 2014-01-30 Completed [facility] y of Vaccine (3+ yrs) 00:00:00 [facility] Branch Pneumococcal 13 2014-01-30 Completed [facility] y of Conjugate, PCV13 00:00:00 [facility] (Prevnar 13) [facility] Influenza Virus 2014-01-30 Completed [facility] y of Vaccine (3+ yrs) 00:00:00 [facility] Branch Pneumococcal 13 2014-01-30 Completed [facility]it y of Conjugate, PCV13 00:00:00 [facility] d[facility] (Prevnar 13) Branch Influenza Virus 2014-01-30 Completed [facility] y of Vaccine (3+ yrs) 00:00:00 [facility] Branch Pneumococcal 13 2014-01-30 Completed Universit y of Conjugate, PCV13 00:00:00 [facility] (Prevnar 13) Branch Influenza Virus 2014-01-30 Completed [facility]it y of Vaccine (3+ yrs) 00:00:00 [facility] Branch Pneumococcal 13 2014-01-30 Completed Universit y of Conjugate, PCV13 00:00:00 [facility] (Prevnar 13) Branch Influenza Virus 2014-01-30 Completed Univers[facility] y of Vaccine (3+ yrs) 00:00:00 [facility] Branch Pneumococcal 13 2014-01-30 Completed [facility]it y of Conjugate, PCV13 00:00:00 [facility] (Prevnar 13) Branch Influenza Virus 2014-01-30 Completed [facility] y of Vaccine (3+ yrs) 00:00:00 [facility] Branch Pneumococcal 13 2014-01-30 Completed [facility]it y of Conjugate, PCV13 00:00:00 [facility] (Prevnar 13) Branch Influenza Virus 2014-01-30 Completed [facility]it y of Vaccine (3+ yrs) 00:00:00 [facility] Branch Pneumococcal 13 2014-01-30 Completed Universit y of Conjugate, PCV13 00:00:00 [facility] (Prevnar 13) Branch Influenza Virus 2014-01-30 Completed [facility] y of Vaccine (3+ yrs) 00:00:00 [facility] Pneumococcal 13 2014-01-30 Completed [facility]it y of Conjugate, PCV13 00:00:00 [facility] (Prevnar 13) Branch Influenza Virus 2014-01-30 Completed [facility] y of Vaccine (3+ yrs) 00:00:00 [facility] Pneumococcal 13 2014-01-30 Completed [facility] y of Conjugate, PCV13 00:00:00 [facility] (Prevnar 13) Branch Pneumococcal 2012-02-16 Completed University o f Polysaccharide, 00:00:00 [place] [facility] PPSV23 (PNEUMOVAX) Branch Influenza Virus 2012-02-16 Completed Univers[facility] y of Vaccine 00:00:00 [facility] PPD (TB) 2012-02-16 Completed University of 00:00:00 [facility] Pneumococcal 2012-02-16 Completed University o f Polysaccharide, 00:00:00 [place] [facility] PPSV23 (PNEUMOVAX) Branch Influenza Virus 2012-02-16 Completed [facility] y of Vaccine 00:00:00 [facility] PPD (TB) 2012-02-16 Completed [facility] of 00:00:00 [facility] Pneumococcal 2012-02-16 Completed University o f Polysaccharide, 00:00:00 [place] [facility] PPSV23 (PNEUMOVAX) Branch Influenza Virus 2012-02-16 Completed [facility] of Vaccine 00:00:00 [facility] PPD (TB) 2012-02-16 Completed [facility] of 00:00:00 [facility] Pneumococcal 2012-02-16 Completed [facility] o f Polysaccharide, 00:00:00 [place] [facility] PPSV23 (PNEUMOVAX) Branch Influenza Virus 2012-02-16 Completed [facility] of Vaccine 00:00:00 [facility] PPD (TB) 2012-02-16 Completed [facility] of 00:00:00 [facility] Pneumococcal 2012-02-16 Completed University o f Polysaccharide, 00:00:00 [place] [facility] PPSV23 (PNEUMOVAX) Branch Influenza Virus 2012-02-16 Completed [facility] of Vaccine 00:00:00 [facility] PPD (TB) 2012-02-16 Completed [facility] of 00:00:00 [facility] Pneumococcal 2012-02-16 Completed University o f Polysaccharide, 00:00:00 [place] [facility] PPSV23 (PNEUMOVAX) Branch Influenza Virus 2012-02-16 Completed [facility] of Vaccine 00:00:00 [facility] PPD (TB) 2012-02-16 Completed [facility] of 00:00:00 [facility] Pneumococcal 2012-02-16 Completed University o f Polysaccharide, 00:00:00 [place] [facility] PPSV23 (PNEUMOVAX) Branch Influenza Virus 2012-02-16 Completed [facility] of Vaccine 00:00:00 [facility] PPD (TB) 2012-02-16 Completed [facility] of 00:00:00 [facility] Pneumococcal 2012-02-16 Completed University o f Polysaccharide, 00:00:00 [place] [facility] PPSV23 (PNEUMOVAX) Branch Influenza Virus 2012-02-16 Completed [facility] of Vaccine 00:00:00 [facility] PPD (TB) 2012-02-16 Completed [facility] of 00:00:00 [facility] Pneumococcal 2012-02-16 Completed University o f Polysaccharide, 00:00:00 [place] [facility] PPSV23 (PNEUMOVAX) Branch Influenza Virus 2012-02-16 Completed [facility] of Vaccine 00:00:00 [facility] PPD (TB) 2012-02-16 Completed [facility] of 00:00:00 [facility] Pneumococcal 2012-02-16 Completed [facility] o f Polysaccharide, 00:00:00 [place] [facility] PPSV23 (PNEUMOVAX) Branch Influenza Virus 2012-02-16 Completed [facility] of Vaccine 00:00:00 [facility] PPD (TB) 2012-02-16 Completed [facility] 00:00:00 [facility] Pneumococcal 2012-02-16 Completed University o f Polysaccharide, 00:00:00 [place] [facility] PPSV23 (PNEUMOVAX) Branch Influenza Virus 2012-02-16 Completed Universit y of Vaccine 00:00:00 [facility] PPD (TB) 2012-02-16 Completed [facility] of 00:00:00 [facility] Pneumococcal 2012-02-16 Completed [facility] o f Polysaccharide, 00:00:00 [place] [facility] PPSV23 (PNEUMOVAX) Branch Influenza Virus 2012-02-16 Completed Universit y of Vaccine 00:00:00 [facility] PPD (TB) 2012-02-16 Completed [facility] of 00:00:00 [facility] Pneumococcal 2012-02-16 Completed University o f Polysaccharide, 00:00:00 [place] [facility] PPSV23 (PNEUMOVAX) Branch Influenza Virus 2012-02-16 Completed Universit y of Vaccine 00:00:00 [facility] PPD (TB) 2012-02-16 Completed [facility] of 00:00:00 [facility] Pneumococcal 2012-02-16 Completed [facility] o f Polysaccharide, 00:00:00 [place] [facility] PPSV23 (PNEUMOVAX) Branch Influenza Virus 2012-02-16 Completed Universit y of Vaccine 00:00:00 [facility] PPD (TB) 2012-02-16 Completed [facility] of 00:00:00 [facility] Pneumococcal 2012-02-16 Completed [facility] o f Polysaccharide, 00:00:00 [place] [facility] PPSV23 (PNEUMOVAX) Branch Influenza Virus 2012-02-16 Completed Universit y of Vaccine 00:00:00 [facility] PPD (TB) 2012-02-16 Completed [facility] of 00:00:00 [facility] Pneumococcal 2012-02-16 Completed [facility] o f Polysaccharide, 00:00:00 [place] [facility] PPSV23 (PNEUMOVAX) Branch Influenza Virus 2012-02-16 Completed Universit y of Vaccine 00:00:00 [facility] PPD (TB) 2012-02-16 Completed [facility] of 00:00:00 [facility] Pneumococcal 2012-02-16 Completed [facility] o f Polysaccharide, 00:00:00 [place] [facility] PPSV23 (PNEUMOVAX) Branch Influenza Virus 2012-02-16 Completed Universit y of Vaccine 00:00:00 [facility] PPD (TB) 2012-02-16 Completed [facility] of 00:00:00 [facility] Pneumococcal 2012-02-16 Completed [facility] o f Polysaccharide, 00:00:00 [place] [facility] PPSV23 (PNEUMOVAX) Branch Influenza Virus 2012-02-16 Completed Universit y of Vaccine 00:00:00 [facility] PPD (TB) 2012-02-16 Completed [facility] of 00:00:00 [facility] Pneumococcal 2012-02-16 Completed [facility] o f Polysaccharide, 00:00:00 [place] [facility] PPSV23 (PNEUMOVAX) Branch Influenza Virus 2012-02-16 Completed [facility]it y of Vaccine 00:00:00 [facility] PPD (TB) 2012-02-16 Completed [facility] 00:00:00 [facility] Pneumococcal 2012-02-16 Completed [facility] o f Polysaccharide, 00:00:00 [place] [facility] PPSV23 (PNEUMOVAX) Branch Influenza Virus 2012-02-16 Completed Universit y of Vaccine 00:00:00 [facility] PPD (TB) 2012-02-16 Completed [facility] of 00:00:00 [facility] Hep B, Adol or Pedi 2011-09-01 Completed Unive rsity of Dosage 00:00:00 [facility] Hep B, Adol or Pedi 2011-09-01 Completed Unive rsity of Dosage 00:00:00 [facility] Hep B, Adol or Pedi 2011-09-01 Completed Unive rsity of Dosage 00:00:00 [facility] Hep B, Adol or Pedi 2011-09-01 Completed Unive rsity of Dosage 00:00:00 [facility] Hep B, Adol or Pedi 2011-09-01 Completed Unive rsity of Dosage 00:00:00 [facility] Hep B, Adol or Pedi 2011-09-01 Completed Unive rsity of Dosage 00:00:00 [facility] Hep B, Adol or Pedi [...] Completed Unive rsity of Dosage 00:00:00 [facility] Influenza Virus 2011-02-10 Completed Universit y of Vaccine 00:00:00 [facility] Hep B, Adol or Pedi 2011-02-10 Completed Unive rsity of Dosage 00:00:00 [facility] Influenza Virus 2011-02-10 Completed Universit y of Vaccine 00:00:00 [facility] Hep B, Adol or Pedi 2011-02-10 Completed Unive rsity of Dosage 00:00:00 [facility] Influenza Virus 2011-02-10 Completed Universit y of Vaccine 00:00:00 [facility] Hep B, Adol or Pedi 2011-02-10 Completed Unive rsity of Dosage 00:00:00 [facility] Influenza Virus 2011-02-10 Completed Universit y of Vaccine 00:00:00 [facility] Hep B, Adol or Pedi 2011-02-10 Completed Unive rsity of Dosage 00:00:00 [facility] Influenza Virus 2011-02-10 Completed Universit y of Vaccine 00:00:00 [facility] Hep B, Adol or Pedi 2011-02-10 Completed Unive rsity of Dosage 00:00:00 [facility] Influenza Virus 2011-02-10 Completed Universit y of Vaccine 00:00:00 [facility] Hep B, Adol or Pedi 2011-02-10 Completed Unive rsity of Dosage 00:00:00 [facility] Influenza Virus 2011-02-10 Completed Universit y of Vaccine 00:00:00 [facility] Hep B, Adol or Pedi 2011-02-10 Completed Unive rsity of Dosage 00:00:00 [facility] Influenza Virus 2011-02-10 Completed Universit y of Vaccine 00:00:00 [facility] Hep B, Adol or Pedi 2011-02-10 Completed Unive rsity of Dosage 00:00:00 [facility] Influenza Virus 2011-02-10 Completed Universit y of Vaccine 00:00:00 [facility] Hep B, Adol or Pedi 2011-02-10 Completed Unive rsity of Dosage 00:00:00 [facility] Influenza Virus 2011-02-10 Completed Universit y of Vaccine 00:00:00 [facility] Hep B, Adol or Pedi 2011-02-10 Completed Unive rsity of Dosage 00:00:00 [facility] Influenza Virus 2011-02-10 Completed Universit y of Vaccine 00:00:00 [facility] Hep B, Adol or Pedi 2011-02-10 Completed Unive rsity of Dosage 00:00:00 [facility] Influenza Virus 2011-02-10 Completed Universit y of Vaccine 00:00:00 [facility] Hep B, Adol or Pedi 2011-02-10 Completed Unive rsity of Dosage 00:00:00 [facility] Influenza Virus 2011-02-10 Completed Universit y of Vaccine 00:00:00 [facility] Hep B, Adol or Pedi 2011-02-10 Completed Unive rsity of Dosage 00:00:00 [facility] Influenza Virus 2011-02-10 Completed Universit y of Vaccine 00:00:00 [facility] Hep B, Adol or Pedi 2011-02-10 Completed Unive rsity of Dosage 00:00:00 [facility] Influenza Virus 2011-02-10 Completed Universit y of Vaccine 00:00:00 [facility] Hep B, Adol or Pedi 2011-02-10 Completed Unive rsity of Dosage 00:00:00 [facility] Influenza Virus 2011-02-10 Completed Universit y of Vaccine 00:00:00 [facility] Hep B, Adol or Pedi 2011-02-10 Completed Unive rsity of Dosage 00:00:00 [facility] Influenza Virus 2011-02-10 Completed Universit y of Vaccine 00:00:00 [facility] Hep B, Adol or Pedi 2011-02-10 Completed Unive rsity of Dosage 00:00:00 [facility] Influenza Virus 2011-02-10 Completed Universit y of Vaccine 00:00:00 [facility] Hep B, Adol or Pedi 2011-02-10 Completed Unive rsity of Dosage 00:00:00 [facility] Influenza Virus 2011-02-10 Completed Universit y of Vaccine 00:00:00 [facility] Hep B, Adol or Pedi 2011-02-10 Completed Unive rsity of Dosage 00:00:00 [facility] Influenza Virus 2011-02-10 Completed Universit y of Vaccine 00:00:00 [facility] Hep B, Adol or Pedi 2011-02-10 Completed Unive rsity of Dosage 00:00:00 [facility] PPD (TB) 2010-11-18 Completed University of 00:00:00 [facility] TDAP (ADACEL) 2010-11-18 Completed University of VACCINE 00:00:00 [facility] PPD (TB) 2010-11-18 Completed [facility] of 00:00:00 [facility] TDAP (ADACEL) 2010-11-18 Completed University of VACCINE 00:00:00 [facility] PPD (TB) 2010-11-18 Completed [facility] of 00:00:00 [facility] TDAP (ADACEL) 2010-11-18 Completed University of VACCINE 00:00:00 [facility] PPD (TB) 2010-11-18 Completed [facility] of 00:00:00 [facility] TDAP (ADACEL) 2010-11-18 Completed University of VACCINE 00:00:00 [facility] PPD (TB) 2010-11-18 Completed [facility] of 00:00:00 [facility] TDAP (ADACEL) 2010-11-18 Completed University of VACCINE 00:00:00 [facility] PPD (TB) 2010-11-18 Completed [facility] of 00:00:00 [facility] TDAP (ADACEL) 2010-11-18 Completed University of VACCINE 00:00:00 [facility] PPD (TB) 2010-11-18 Completed [facility] of 00:00:00 [facility] TDAP (ADACEL) 2010-11-18 Completed University of VACCINE 00:00:00 [facility] PPD (TB) 2010-11-18 Completed [facility] of 00:00:00 [facility] TDAP (ADACEL) 2010-11-18 Completed University of VACCINE 00:00:00 [facility] PPD (TB) 2010-11-18 Completed [facility] of 00:00:00 [facility] TDAP (ADACEL) 2010-11-18 Completed University of VACCINE 00:00:00 [facility] PPD (TB) 2010-11-18 Completed [facility] of 00:00:00 [facility] TDAP (ADACEL) 2010-11-18 Completed University of VACCINE 00:00:00 [facility] PPD (TB) 2010-11-18 Completed [facility] of 00:00:00 [facility] TDAP (ADACEL) 2010-11-18 Completed University of VACCINE 00:00:00 [facility] PPD (TB) 2010-11-18 Completed [facility] of 00:00:00 [facility] TDAP (ADACEL) 2010-11-18 Completed University of VACCINE 00:00:00 [facility] PPD (TB) 2010-11-18 Completed [facility] of 00:00:00 [facility] TDAP (ADACEL) 2010-11-18 Completed University of VACCINE 00:00:00 [facility] PPD (TB) 2010-11-18 Completed [facility] of 00:00:00 [facility] TDAP (ADACEL) 2010-11-18 Completed University of VACCINE 00:00:00 [facility] PPD (TB) 2010-11-18 Completed [facility] of 00:00:00 [facility] TDAP (ADACEL) 2010-11-18 Completed University of VACCINE 00:00:00 [facility] PPD (TB) 2010-11-18 Completed [facility] of 00:00:00 [facility] TDAP (ADACEL) 2010-11-18 Completed University of VACCINE 00:00:00 [facility] PPD (TB) 2010-11-18 Completed [facility] of 00:00:00 [facility] TDAP (ADACEL) 2010-11-18 Completed University of VACCINE 00:00:00 [facility] PPD (TB) 2010-11-18 Completed [facility] of 00:00:00 [facility] TDAP (ADACEL) 2010-11-18 Completed University of VACCINE 00:00:00 [facility] PPD (TB) 2010-11-18 Completed [facility] of 00:00:00 [facility] TDAP (ADACEL) 2010-11-18 Completed University of VACCINE 00:00:00 [facility] PPD (TB) 2010-11-18 Completed [facility] of 00:00:00 [facility] TDAP (ADACEL) 2010-11-18 Completed University of VACCINE 00:00:00 [facility] HEPATITIS A 2004-03-02 Completed [facility] of 00:00:00 [facility] HEPATITIS A 2004-03-02 Completed [facility] of 00:00:00 [facility] HEPATITIS A 2004-03-02 Completed [facility] of 00:00:00 [facility] HEPATITIS A 2004-03-02 Completed [facility] of 00:00:00 [facility] HEPATITIS A 2004-03-02 Completed [facility] of 00:00:00 [facility] HEPATITIS A 2004-03-02 Completed [facility] of 00:00:00 [facility] HEPATITIS A 2004-03-02 Completed [facility] of 00:00:00 [facility] HEPATITIS A 2004-03-02 Completed [facility] of 00:00:00 [facility] HEPATITIS A 2004-03-02 Completed [facility] of 00:00:00 [facility] HEPATITIS A 2004-03-02 Completed [facility] of 00:00:00 [facility] HEPATITIS A 2004-03-02 Completed [facility] of 00:00:00 [facility] HEPATITIS A 2004-03-02 Completed [facility] of 00:00:00 [facility] HEPATITIS A 2004-03-02 Completed [facility] 00:00:00 [facility] HEPATITIS A 2004-03-02 Completed University [...] HEPATITIS A 2003-08-01 Completed University of 00:00:00 [facility] HEPATITIS A 2003-08-01 Completed [...] HEPATITIS A 2003-08-01 Completed [facility] of 00:00:00 [facility] HEPATITIS A 2003-08-01 Completed [...] HEPATITIS A 2003-08-01 Completed [facility] of 00:00:00 [facility] HEPATITIS A 2003-08-01 Completed [facility] of 00:00:00 [facility] HEPATITIS A 2003-08-01 Completed [facility] of 00:00:00 [facility] Pneumococcal 2001-10-04 Completed [facility] o f Polysaccharide, 00:00:00 [place] [facility] PPSV23 (PNEUMOVAX) Branch PPD (TB) 2001-10-04 Completed [facility] of 00:00:00 [facility] Pneumococcal 2001-10-04 Completed University o f Polysaccharide, 00:00:00 [place] [facility] PPSV23 (PNEUMOVAX) Branch PPD (TB) 2001-10-04 Completed [facility] of 00:00:00 [facility] Pneumococcal 2001-10-04 Completed University o f Polysaccharide, 00:00:00 [place] [facility] PPSV23 (PNEUMOVAX) Branch PPD (TB) 2001-10-04 Completed [facility] of 00:00:00 [facility] Pneumococcal 2001-10-04 Completed [facility] o f Polysaccharide, 00:00:00 [place] [facility] PPSV23 (PNEUMOVAX) Branch PPD (TB) 2001-10-04 Completed [facility] of 00:00:00 [facility] Pneumococcal 2001-10-04 Completed [facility] o f Polysaccharide, 00:00:00 [place] [facility] PPSV23 (PNEUMOVAX) Branch PPD (TB) 2001-10-04 Completed [facility] of 00:00:00 [facility] Pneumococcal 2001-10-04 Completed University o f Polysaccharide, 00:00:00 [place] [facility] PPSV23 (PNEUMOVAX) Branch PPD (TB) 2001-10-04 Completed [facility] of 00:00:00 [facility] Pneumococcal 2001-10-04 Completed [facility] o f Polysaccharide, 00:00:00 [place] [facility] PPSV23 (PNEUMOVAX) Branch PPD (TB) 2001-10-04 Completed [facility] of 00:00:00 [facility] Pneumococcal 2001-10-04 Completed University o f Polysaccharide, 00:00:00 [place] [facility] PPSV23 (PNEUMOVAX) Branch PPD (TB) 2001-10-04 Completed [facility] of 00:00:00 [facility] Pneumococcal 2001-10-04 Completed [facility] o f Polysaccharide, 00:00:00 [place] [facility] PPSV23 (PNEUMOVAX) Branch PPD (TB) 2001-10-04 Completed [facility] of 00:00:00 [facility] Pneumococcal 2001-10-04 Completed [facility] o f Polysaccharide, 00:00:00 [place] [facility] PPSV23 (PNEUMOVAX) Branch PPD (TB) 2001-10-04 Completed [facility] of 00:00:00 [facility] Pneumococcal 2001-10-04 Completed [facility] o f Polysaccharide, 00:00:00 [place] [facility] PPSV23 (PNEUMOVAX) Branch PPD (TB) 2001-10-04 Completed [facility] of 00:00:00 [facility] Pneumococcal 2001-10-04 Completed University o f Polysaccharide, 00:00:00 [place] [facility] PPSV23 (PNEUMOVAX) Branch PPD (TB) 2001-10-04 Completed [facility] of 00:00:00 [facility] Pneumococcal 2001-10-04 Completed [facility] o f Polysaccharide, 00:00:00 [place] [facility] PPSV23 (PNEUMOVAX) Branch PPD (TB) 2001-10-04 Completed [facility] of 00:00:00 [facility] Pneumococcal 2001-10-04 Completed [facility] o f Polysaccharide, 00:00:00 [place] [facility] PPSV23 (PNEUMOVAX) Branch PPD (TB) 2001-10-04 Completed [facility] of 00:00:00 [facility] Pneumococcal 2001-10-04 Completed [facility] o f Polysaccharide, 00:00:00 [place] [facility] PPSV23 (PNEUMOVAX) Branch PPD (TB) 2001-10-04 Completed [facility] of 00:00:00 [facility] Pneumococcal 2001-10-04 Completed [facility] o f Polysaccharide, 00:00:00 [place] [facility] PPSV23 (PNEUMOVAX) Branch PPD (TB) 2001-10-04 Completed [facility] of 00:00:00 [facility] Pneumococcal 2001-10-04 Completed [facility] o f Polysaccharide, 00:00:00 [place] [facility] PPSV23 (PNEUMOVAX) Branch PPD (TB) 2001-10-04 Completed [facility] of 00:00:00 [facility] Pneumococcal 2001-10-04 Completed University o f Polysaccharide, 00:00:00 [place] [facility] PPSV23 (PNEUMOVAX) Branch PPD (TB) 2001-10-04 Completed [facility] of 00:00:00 [facility] Pneumococcal 2001-10-04 Completed [facility] o f Polysaccharide, 00:00:00 [place] [facility] PPSV23 (PNEUMOVAX) Branch PPD (TB) 2001-10-04 Completed [facility] of 00:00:00 [facility] Pneumococcal 2001-10-04 Completed [facility] o f Polysaccharide, 00:00:00 [place] [facility] PPSV23 (PNEUMOVAX) Branch PPD (TB) 2001-10-04 Completed [facility] 00:00:00 [facility] Vital Signs Vital Name Observation [...] [facility] Pulse oximetry Branch Body weight 2022-05-10 16:29:00 [...] [facility] Pulse oximetry Branch Body temperature 2022-05-08 22:22:00 [...] [facility] Pulse oximetry Branch Body temperature 2022-05-06 20:12:00 36.5 Amina Univ ers[facility] [place] [facility] Body height 2022-05-06 20:12:00 162.6 cm [facility] [place] [facility] Body weight 2022-05-06 20:12:00 78.926 [...] [facility] Pulse oximetry Branch Systolic blood 2022-03-05 15:23:00 [...] 21:41:00 86 mm[Hg] Unive rsity of pressure [facility] Heart rate 2022-02-16 21:41:00 51 /min [facility] Body temperature 2022-02-16 21:41:00 36.56 Amina [facility] Respiratory rate 2022-02-16 21:41:00 17 /min [facility] Oxygen saturation in 2022-02-16 21:41:00 98 /min [facility] Arterial blood by [facility] Pulse oximetry Branch Body height 2022-02-11 16:02:00 162.6 cm [facility] Body weight 2022-02-11 16:02:00 79.379 kg [facility] BMI 2022-02-11 16:02:00 30.04 kg/m2 [facility] Systolic blood 2021-11-20 13:47:00 165 mm[Hg] Univer sity of pressure [facility] Diastolic blood 2021-11-20 13:47:00 83 mm[Hg] Unive rsity of pressure [facility] Heart rate 2021-11-20 13:47:00 58 /min [facility] Body temperature 2021-11-20 13:42:00 36.39 Amina [facility] Respiratory rate 2021-11-20 13:42:00 16 /min [facility] Body height 2021-11-20 13:42:00 162.6 cm [facility] Body weight 2021-11-20 13:42:00 84.369 kg [facility] BMI 2021-11-20 13:42:00 31.93 kg/m2 [facility] Systolic blood 2021-07-14 15:18:00 142 mm[Hg] [facility] Diastolic blood 2021-07-14 15:18:00 76 mm[facility]Hg] [facility] Heart rate 2021-07-14 15:18:00 61 [facility] Body [facility] 2021-07-14 15:18:00 [facility] 2021-07-14 15:18:00 [facility] 2021-07-14 15:18:00 35[facility]87 [facility] 2022-05-10 22:00:00 159 mm[Hg] Univer sity of pressure [facility] Diastolic blood 2022-05-10 22:00:00 87 mm[Hg] Unive rsity of pressure [facility] Heart rate 2022-05-10 22:00:00 56 /min [facility] Body temperature 2022-05-10 22:00:00 36.61 Amina Univ ersity of [facility] Respiratory rate 2022-05-10 22:00:00 17 /min [facility] Oxygen saturation in 2022-05-10 22:00:00 98 /min [facility] Arterial blood by [facility] Pulse oximetry Branch Body weight 2022-05-10 16:29:00 78.926 kg [facility] BMI 2022-05-10 16:29:00 29.87 kg/m2 Universi ty of [facility] Body height 2022-05-06 20:12:00 162.6 cm Universi ty of [facility] Systolic blood 2022-03-05 15:23:00 167 mm[Hg] Univer sity of pressure [facility] Diastolic blood 2022-03-05 15:23:00 105 mm[Hg] Unive rsity of pressure [facility] Heart rate 2022-03-05 15:23:00 49 /min [facility] Body temperature 2022-03-05 15:18:00 36.67 Amina Univ ersity of [facility] Respiratory rate 2022-03-05 15:18:00 18 /min Univ ersity of [facility] Body height 2022-03-05 15:18:00 162.6 cm Universi ty of [facility] Body weight 2022-03-05 15:18:00 74.707 kg [facility] BMI 2022-03-05 15:18:00 28.27 kg/m2 [facility] Oxygen saturation in 2022-02-16 21:41:00 98 /min [facility] Arterial blood by [facility] Pulse oximetry Branch Systolic blood 2020-12-08 15:48:00 125 mm[Hg] [facility] pressure Diastolic blood 2020-12-08 15:48:00 76 mm[Hg] [facility] pressure Heart rate 2020-12-08 15:48:00 64 /min [facility] [place] [place] Body temperature 2020-12-08 15:48:00 36.61 Amina [facility] Respiratory rate 2020-12-08 15:48:00 17 /min [facility] Body height 2020-12-08 15:48:[address] [facility] [place] [place] Body weight 2020-12-08 15:48:[address] [facility] [place] [place] BMI 2020-12-08 15:48:00 37.42 kg/m2 [facility] [place] [place] Oxygen saturation in 2020-12-08 15:48:00 97 /min [facility] Arterial blood by Pulse oximetry Respitory Rate 2020-08-30 13:00:00 [facility] Systolic (mm Hg) 2020-08-30 13:00:00 [facility] [place] Diastolic (mm Hg) 2020-08-30 13:00:00 [facility] [place] Systolic (mm Hg) 2020-08-30 11:00:00 [facility] [place] Diastolic (mm Hg) 2020-08-30 11:00:00 [facility] [place] Temperature Oral (F) 2020-08-30 11:00:00 98.4 F [facility] Respitory Rate 2020-08-30 11:00:00 [facility] Respitory Rate 2020-08-30 10:00:00 [facility] Systolic (mm Hg) 2020-08-30 10:00:00 [facility] [place] Diastolic (mm Hg) 2020-08-30 10:00:00 [facility] Temperature Oral (F) 2020-08-30 00:00:00 96.9 F [facility] Temperature Oral (F) 2020-08-29 11:26:00 97.6 F [facility] Height 2020-08-29 10:30:00 [facility] 2020-08-29 10:30:00 [facility] BMI Calculated 2020-08-29 10:30:00 [place] Procedures Procedure Date / Time Performing Clinician Source Performed URINALYSIS 2022-05-10 19:36:00 [facility] TROPONIN I 2022-05-10 18:34:00 [facility] COMP. METABOLIC PANEL 2022-05-10 18:34:00 Home [facility] ([id number]) [facility] CBC WITH DIFF 2022-05-10 18:34:00 [facility] XR CHEST 2 VW 2022-05-10 17:24:58 [facility] CONSENT/REFUSAL FOR 2022-05-10 16:26:23 Doctor Unassigned, [facility] DIAGNOSIS AND TREATMENT [place] [facility] CONSENT/REFUSAL FOR 2022-05-10 16:26:09 Doctor Unassigned, [facility] DIAGNOSIS AND TREATMENT [place] [facility] URINALYSIS 2022-05-08 22:43:[address] [facility] XR CHEST 2 VW 2022-05-06 22:56:53 Anette Olea [facility] COMP. METABOLIC PANEL 2022-05-06 22:14:00 Anette Olea [facility] ([id number]) [facility] CBC WITH DIFF 2022-05-06 22:14:00 Anette Olea [facility] COVID-19 (ID NOW RAPID 2022-05-06 22:14:00 Anette Olea [facility] TESTING) Medical Branch BASIC METABOLIC PANEL (NA, 2022-04-22 21:23:00 Paulette Gray [facility] K, CL, CO2, GLUCOSE, BUN, Medica l Branch CREATININE, CA) CBC WITH DIFF 2022-04-22 21:23:00 Paulette Gray [place] [facility] CONSENT/REFUSAL FOR 2022-04-22 19:45:46 Doctor Unassigned, [facility] DIAGNOSIS AND TREATMENT [facility] [facility] SARS-COV-2 COVID-19 2022-03-05 16:09:27 [facility] DIMITRIS-SUCROSE VACCINE 12 Medical Branch YRS+, BIVALENT 0.3ML, IM, (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) FLU 2022-03-05 16:09:27 [facility] VACC(),65+YR,0.5 Medica l Branch ML,IM,ADJUVANTED,QUAD(FLUA D) FLU 2022-03-05 16:09:27 [facility] VACC(),65+YR,0.5 Medica l Branch ML,IM,ADJUVANTED,QUAD(FLUA D) SARS-COV-2 COVID-19 2022-03-05 16:09:27 [facility] DIMITRIS-SUCROSE VACCINE [address] [place] [address] YRS+, BIVALENT 0.3ML, IM, (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) MAGNESIUM 2022-02-15 09:41:00 Radha Sofia [facility] BASIC METABOLIC PANEL (NA, 2022-02-15 09:41:00 Radha Sofia [facility] K, CL, CO2, GLUCOSE, BUN, Medica l Branch CREATININE, CA) CBC WITH DIFF 2022-02-15 09:41:00 Radha Sofia [facility] N-TERMINAL PRO-BNP 2022-02-15 09:41:00 Sofia [facility] CBC WITH DIFF 2022-02-15 09:41:00 Radha [facility] BASIC METABOLIC PANEL (NA, 2022-02-15 09:41:00 Sofia Garcia [facility] K, CL, CO2, GLUCOSE, BUN, Medica l Branch CREATININE, CA) MAGNESIUM 2022-02-15 09:41:00 Radha [facility] N-TERMINAL PRO-BNP 2022-02-15 09:41:00 Sofia [facility] BASIC METABOLIC PANEL (NA, 2022-02-13 09:40:00 Radha [facility] K, CL, CO2, GLUCOSE, BUN, Medica l Branch CREATININE, CA) CBC WITH DIFF 2022-02-13 09:40:00 Radha [facility] BASIC METABOLIC PANEL (NA, 2022-02-13 09:40:00 Radha [facility] K, CL, CO2, GLUCOSE, BUN, Medica l Branch CREATININE, CA) CBC WITH DIFF 2022-02-13 09:40:00 Radha [facility] TROPONIN I 2022-02-11 23:41:00 Radha [facility] N-TERMINAL PRO-BNP 2022-02-11 23:41:00 Radha [facility] TROPONIN I 2022-02-11 23:41:00 Radha [facility] N-TERMINAL PRO-BNP 2022-02-11 23:41:00 Radha [facility] HB ECG ROUTINE & RHYTHM 2022-02-11 22:15:36 [facility] [facility] TRANSTHORACIC ECHO (TTE) 2022-02-11 21:26:50 [facility] 2022-02-11 21:26:50 [facility] 2022-02-11 07:45:[address] [facility] [address] ABDOMEN PELVIS W 2022-02-11 07:45:43 Reilly Means [facility] RAPID INFLUENZA A/B 2022-02-11 06:54:00 Reilly Means [facility] RAPID INFLUENZA A/B 2022-02-11 06:54:00 Reilly Means [facility] URINALYSIS 2022-02-11 06:45:00 Reilly Means [facility] URINE CULTURE 2022-02-11 06:45:00 Reilly [facility] URINALYSIS 2022-02-11 06:45:00 Reilly [facility] URINE CULTURE 2022-02-11 06:45:00 Reilly Means [facility] HB ECG ROUTINE & RHYTHM 2022-02-11 05:22:08 Reilly Means [facility] HB ECG ROUTINE & RHYTHM 2022-02-11 05:22:08 Reilly Means [facility] BLOOD CULTURE SCREEN 2022-02-11 04:58:00 Reilly Means [facility] TROPONIN I 2022-02-11 04:58:00 Reilly [facility] COMP. METABOLIC PANEL 2022-02-11 04:58:00 Reilly Means [facility] ([id number]) Medical Branch CBC WITH DIFF 2022-02-11 04:58:00 Reilly [facility] PROTHROMBIN TIME / INR 2022-02-11 04:58:00 Reilly Means [facility] ACTIVATED PARTIAL THRMPLAS 2022-02-11 04:58:00 Reilly Means [facility] N-TERMINAL PRO-BNP 2022-02-11 04:58:[address] [facility] LACTIC ACID WHOLE BLOOD 2022-02-11 04:58:00 Reilly Means [facility] COVID-19 (ID NOW RAPID 2022-02-11 04:58:00 Reilly Means [facility] TESTING) Medical Branch LAB ONLY COVID 2022-02-11 04:58:00 Reilly Means [facility] CBC WITH DIFF 2022-02-11 04:58:00 Reilly [facility] ACTIVATED PARTIAL THRMPLAS 2022-02-11 04:58:00 Reilly Means [facility] PROTHROMBIN TIME / INR 2022-02-11 04:58:00 Reilly Means [facility] COVID-19 (ID NOW RAPID 2022-02-11 04:58:00 Reilly Means [facility] TESTING) Medical Branch COMP. METABOLIC PANEL 2022-02-11 04:58:00 Reilly Means [facility] ([id number]) Medical Branch TROPONIN I 2022-02-11 04:58:00 Reilly Means [facility] N-TERMINAL PRO-BNP 2022-02-11 04:58:[address] [facility] BLOOD CULTURE SCREEN 2022-02-11 04:58:00 Reilly Means [facility] LACTIC ACID WHOLE BLOOD 2022-02-11 04:58:00 Reilly Means [facility] LAB ONLY COVID 2022-02-11 04:58:00 Reilly Means [facility] INTERPRETATION [facility] XR CHEST 1 VW 2022-02-11 04:27:42 Miguelangel [facility] XR CHEST 1 VW 2022-02-11 04:27:42 Reilly [facility] HOSPITAL ADMISSION 2022-02-10 05:01:00 Doctor Unassigned, [facility] HOSPITAL ADMISSION 2022-02-10 05:01:00 Doctor Unassigned, [facility] ECG 12-LEAD 2021-07-14 15:14:00 Elan Lira [facility] [id number] 2021-06-17 00:00:00 RASSA [facility] GASTROINTESTINAL PANEL 2020-12-08 22:21:[address] [facility] XR ABDOMEN 1 VW 2020-12-08 18:06:32 Eliseo Arce spital OR [place] < 1 HOUR 2020-09-05 22:39:00 Eliseo Arce Ho spital SURGICAL PATHOLOGY REQUEST 2020-09-05 21:54:00 Eliseo Arce [facility] XR CHEST 1 VW PORTABLE 2020-09-05 19:55:00 Eliseo Arce [facility] DISCHARGE PATIENT 2020-09-05 17:27:55 Lucas Harris [facility] [place] AN ELECTIVE 2020-09-05 16:47:23 Kirit Flood [facility] ENDOTRACHEAL AIRWAY EGD, INTRAOPERATIVE 2020-09-05 16:27:00 [facility] 2020-09-05 15:04:00 Sarai Maharaj [facility] TIME (PTT) M. PROTHROMBIN TIME WITH INR 2020-09-05 15:04:[address] [facility]. Plan of Care Planned Activity Planned Date Details Comments Source Future Scheduled 2022-09-10 SHINGLES VACCINES (1 Met [facility] Test 15:06:53 of 2) [code = SHINGLES VACCINES (1 of 2)] Future Scheduled 2022-09-10 BREAST CANCER [facility] Test 15:06:53 SCREENING [code = BREAST CANCER SCREENING] Future Scheduled 2022-09-10 COLONOSCOPY SCREENING [facility] Test 15:06:53 [code = COLONOSCOPY SCREENING] Future Scheduled 2022-09-10 HEPATITIS B VACCINES Met [facility] Test 15:06:53 (1 of 3 - Risk 3-dose series) [code = HEPATITIS B VACCINES (1 of 3 - Risk 3-dose series)] Future Scheduled 2022-09-10 COVID-19 VACCINE (3 - [facility] Test 15:06:53 Booster for Pfizer series) [code = COVID-19 VACCINE (3 - Booster for Pfizer series)] Future Scheduled 2022-09-10 65+ PNEUMOCOCCAL [facility] Test 15:06:53 VACCINE (4 - PPSV23 if available, else PCV20) [code = 65+ PNEUMOCOCCAL VACCINE (4 - PPSV23 if available, else PCV20)] Future Scheduled 2022-09-10 INFLUENZA VACCINE Method [facility] Test 15:06:53 [code = INFLUENZA VACCINE] Future Scheduled 2022-08-26 SHINGLES VACCINES (1 Met [facility] Test 14:43:48 of 2) [code = SHINGLES VACCINES (1 of 2)] Future Scheduled 2022-08-26 BREAST CANCER [facility] Test 14:43:48 SCREENING [code = BREAST CANCER SCREENING] Future Scheduled 2022-08-26 COLONOSCOPY SCREENING [facility] Test 14:43:48 [code = COLONOSCOPY SCREENING] Future Scheduled 2022-08-26 HEPATITIS B VACCINES Met [facility] Test 14:43:48 (1 of 3 - Risk 3-dose series) [code = HEPATITIS B VACCINES (1 of 3 - Risk 3-dose series)] Future Scheduled 2022-08-26 COVID-19 VACCINE (3 - Me [facility] Test 14:43:48 Booster for Pfizer series) [code = COVID-19 VACCINE (3 - Booster for Pfizer series)] Future Scheduled 2022-08-26 65[facility] VACCINE (4 - PPSV23 if available, else PCV20) [code = 65+ PNEUMOCOCCAL VACCINE (4 - PPSV23 if available, else PCV20)] Future Scheduled 2022-08-26 INFLUENZA VACCINE Method [facility] Test 14:43:48 [code = INFLUENZA VACCINE] Future Scheduled 2022-08-07 SHINGLES VACCINES (1 Met [facility] Test 23:30:11 of 2) [code = SHINGLES VACCINES (1 of 2)] Future Scheduled 2022-08-07 BREAST CANCER [facility] Test 23:30:11 SCREENING [code = BREAST CANCER SCREENING] Future Scheduled 2022-08-07 COLONOSCOPY SCREENING [facility] Test 23:30:11 [code = COLONOSCOPY SCREENING] Future Scheduled 2022-08-07 HEPATITIS B VACCINES Met [facility] Test 23:30:11 (1 of 3 - Risk 3-dose series) [code = HEPATITIS B VACCINES (1 of 3 - Risk 3-dose series)] Future Scheduled 2022-08-07 COVID-19 VACCINE (3 - [facility] Test 23:30:11 Booster for Pfizer series) [code = COVID-19 VACCINE (3 - Booster for Pfizer series)] Future Scheduled 2022-08-07 65+ [facility]11 VACCINE (4 - PPSV23 if available, else PCV20) [code = 65+ PNEUMOCOCCAL VACCINE (4 - PPSV23 if available, else PCV20)] Future Scheduled 2022-08-07 INFLUENZA VACCINE Method [facility] Test 23:30:11 [code = INFLUENZA VACCINE] Future Scheduled 2022-08-07 SHINGLES VACCINES (1 Met [facility] Test 23:30:11 of 2) [code = SHINGLES VACCINES (1 of 2)] Future Scheduled 2022-08-07 BREAST CANCER [facility] Test 23:30:11 SCREENING [code = BREAST CANCER SCREENING] Future Scheduled 2022-08-07 COLONOSCOPY SCREENING [facility] Test 23:30:11 [code = COLONOSCOPY SCREENING] Future Scheduled 2022-08-07 HEPATITIS B VACCINES Met [facility] Test 23:30:11 (1 of 3 - Risk 3-dose series) [code = HEPATITIS B VACCINES (1 of 3 - Risk 3-dose series)] Future Scheduled 2022-08-07 COVID-19 VACCINE (3 - Me [facility] Test 23:30:11 Booster for Pfizer series) [code = COVID-19 VACCINE (3 - Booster for Pfizer series)] Future Scheduled 2022-08-07 65+ [facility]:30:11 VACCINE (4 - PPSV23 if available, else PCV20) [code = 65+ PNEUMOCOCCAL VACCINE (4 - PPSV23 if available, else PCV20)] Future Scheduled 2022-08-07 INFLUENZA VACCINE Method [facility] Test 23:30:11 [code = INFLUENZA VACCINE] Future Scheduled 2022-08-06 SHINGLES VACCINES (1 Met [facility] Test 15:48:02 of 2) [code = SHINGLES VACCINES (1 of 2)] Future Scheduled 2022-08-06 BREAST CANCER [facility] Test 15:48:02 SCREENING [code = BREAST CANCER SCREENING] Future Scheduled 2022-08-06 COLONOSCOPY SCREENING [facility] Test 15:48:02 [code = COLONOSCOPY SCREENING] Future Scheduled 2022-08-06 HEPATITIS B VACCINES Met [facility] Test 15:48:02 (1 of 3 - Risk 3-dose series) [code = HEPATITIS B VACCINES (1 of 3 - Risk 3-dose series)] Future Scheduled 2022-08-06 COVID-19 VACCINE (3 - Me [facility] Test 15:48:02 Booster for Pfizer series) [code = COVID-19 VACCINE (3 - Booster for Pfizer series)] Future Scheduled 2022-08-06 65+ [facility]02 VACCINE (4 - PPSV23 if available, else PCV20) [code = 65+ PNEUMOCOCCAL VACCINE (4 - PPSV23 if available, else PCV20)] Future Scheduled 2022-08-06 INFLUENZA VACCINE Method [facility] Test 15:48:02 [code = INFLUENZA VACCINE] Future Scheduled 2022-06-11 SHINGLES VACCINES (1 Met [facility] Test 16:10:12 of 2) [code = SHINGLES VACCINES (1 of 2)] Future Scheduled 2022-06-11 BREAST CANCER [facility] Test 16:10:12 SCREENING [code = BREAST CANCER SCREENING] Future Scheduled 2022-06-11 COLONOSCOPY SCREENING [facility] Test 16:10:12 [code = COLONOSCOPY SCREENING] Future Scheduled 2022-06-11 HEPATITIS B VACCINES Met [facility] Test 16:10:12 (1 of 3 - Risk 3-dose series) [code = HEPATITIS B VACCINES (1 of 3 - Risk 3-dose series)] Future Scheduled 2022-06-11 COVID-19 VACCINE (3 - Me [facility] Test 16:10:12 Booster for Pfizer series) [code = COVID-19 VACCINE (3 - Booster for Pfizer series)] Future Scheduled 2022-06-11 65+ PNEUMOCOCCAL [facility] Test 16:10:12 VACCINE (4 - PPSV23 if available, else PCV20) [code = 65+ PNEUMOCOCCAL VACCINE (4 - PPSV23 if available, else PCV20)] Future Scheduled 2022-06-11 INFLUENZA VACCINE Method [facility] Test 16:10:12 [code = INFLUENZA VACCINE] Future Scheduled 2022-06-11 SHINGLES VACCINES (1 Met [facility] Test 16:10:12 of 2) [code = SHINGLES VACCINES (1 of 2)] Future Scheduled 2022-06-11 BREAST CANCER [facility] Test 16:10:12 SCREENING [code = BREAST CANCER SCREENING] Future Scheduled 2022-06-11 COLONOSCOPY SCREENING [facility] Test 16:10:12 [code = COLONOSCOPY SCREENING] Future Scheduled 2022-06-11 HEPATITIS B VACCINES Met [facility] Test 16:10:12 (1 of 3 - Risk 3-dose series) [code = HEPATITIS B VACCINES (1 of 3 - Risk 3-dose series)] Future Scheduled 2022-06-11 COVID-19 VACCINE (3 - Me [facility] Test 16:10:12 Booster for Pfizer series) [code = COVID-19 VACCINE (3 - Booster for Pfizer series)] Future Scheduled 2022-06-11 65+ [facility] 16:10:12 VACCINE (4 - PPSV23 if available, else PCV20) [code = 65+ PNEUMOCOCCAL VACCINE (4 - PPSV23 if available, else PCV20)] Future Scheduled 2022-06-11 INFLUENZA VACCINE Method [facility] Test 16:10:12 [code = INFLUENZA VACCINE] Future Scheduled 2022-06-11 SHINGLES VACCINES (1 Met [facility] Test 16:10:12 of 2) [code = SHINGLES VACCINES (1 of 2)] Future Scheduled 2022-06-11 BREAST CANCER [facility] Test 16:10:12 SCREENING [code = BREAST CANCER SCREENING] Future Scheduled 2022-06-11 COLONOSCOPY SCREENING [facility] Test 16:10:12 [code = COLONOSCOPY SCREENING] Future Scheduled 2022-06-11 HEPATITIS B VACCINES Met [facility] Test 16:10:12 (1 of 3 - Risk 3-dose series) [code = HEPATITIS B VACCINES (1 of 3 - Risk 3-dose series)] Future Scheduled 2022-06-11 COVID-19 VACCINE (3 - Me [facility] Test 16:10:12 Booster for Pfizer series) [code = COVID-19 VACCINE (3 - Booster for Pfizer series)] Future Scheduled 2022-06-11 65+ [facility] 16:10:12 VACCINE (4 - PPSV23 if available, else PCV20) [code = 65+ PNEUMOCOCCAL VACCINE (4 - PPSV23 if available, else PCV20)] Future Scheduled 2022-06-11 INFLUENZA VACCINE Method [facility] Test 16:10:12 [code = INFLUENZA VACCINE] Future Scheduled 2022-06-11 SHINGLES VACCINES (1 Met [facility] Test 16:10:12 of 2) [code = SHINGLES VACCINES (1 of 2)] Future Scheduled 2022-06-11 BREAST CANCER [facility] Test 16:10:12 SCREENING [code = BREAST CANCER SCREENING] Future Scheduled 2022-06-11 COLONOSCOPY SCREENING [facility] Test 16:10:12 [code = COLONOSCOPY SCREENING] Future Scheduled 2022-06-11 HEPATITIS B VACCINES Met [facility] Test 16:10:12 (1 of 3 - Risk 3-dose series) [code = HEPATITIS B VACCINES (1 of 3 - Risk 3-dose series)] Future Scheduled 2022-06-11 COVID-19 VACCINE (3 - Me [facility] Test 16:10:12 Booster for [...] Scheduled 2022-06-11 SHINGLES VACCINES (1 Met [facility] Test 16:10:12 of 2) [code = SHINGLES VACCINES (1 of 2)] Future Scheduled 2022-06-11 BREAST CANCER [facility] Test 16:10:12 SCREENING [code = BREAST CANCER SCREENING] Future Scheduled 2022-06-11 COLONOSCOPY SCREENING [facility] Test 16:10:12 [code = COLONOSCOPY SCREENING] Future Scheduled 2022-06-11 HEPATITIS B VACCINES Met [facility] Test 16:10:12 (1 of 3 - Risk 3-dose series) [code = HEPATITIS B VACCINES (1 of 3 - Risk 3-dose series)] Future Scheduled 2022-06-11 COVID-19 VACCINE (3 - [facility] Test 16:10:12 Booster for Pfizer series) [code = COVID-19 VACCINE (3 - Booster for Pfizer series)] Future Scheduled 2022-06-11 65+ [facility]CCAL [facility] 16:10:12 VACCINE (4 - PPSV23 if available, else PCV20) [code = 65+ PNEUMOCOCCAL VACCINE (4 - PPSV23 if available, else PCV20)] Future Scheduled 2022-06-11 INFLUENZA VACCINE Method [facility] Test 16:10:12 [code = INFLUENZA VACCINE] Future Scheduled 2022-06-11 SHINGLES VACCINES (1 Met [facility] Test 16:10:12 of 2) [code = SHINGLES VACCINES (1 of 2)] Future Scheduled 2022-06-11 BREAST CANCER [facility] Test 16:10:12 SCREENING [code = BREAST CANCER SCREENING] Future Scheduled 2022-06-11 COLONOSCOPY SCREENING [facility] Test 16:10:12 [code = COLONOSCOPY SCREENING] Future Scheduled 2022-06-11 HEPATITIS B VACCINES Met [facility] Test 16:10:12 (1 of 3 - Risk 3-dose series) [code = HEPATITIS B VACCINES (1 of 3 - Risk 3-dose series)] Future Scheduled 2022-06-11 COVID-19 VACCINE (3 - [facility] Test 16:10:12 Booster for Pfizer series) [code = COVID-19 VACCINE (3 - Booster for Pfizer series)] Future Scheduled 2022-06-11 65+ [facility] 16:10:12 VACCINE (4 - PPSV23 if available, else PCV20) [code = 65+ PNEUMOCOCCAL VACCINE (4 - PPSV23 if available, else PCV20)] Future Scheduled 2022-06-11 INFLUENZA VACCINE Method [facility] Test 16:10:12 [code = INFLUENZA VACCINE] Future Scheduled 2022-06-11 SHINGLES VACCINES (1 Met [facility] Test 16:10:12 of 2) [code = SHINGLES VACCINES (1 of 2)] Future Scheduled 2022-06-11 BREAST CANCER [facility] Test 16:10:12 SCREENING [code = BREAST CANCER SCREENING] Future Scheduled 2022-06-11 COLONOSCOPY SCREENING [facility] Test 16:10:12 [code = COLONOSCOPY SCREENING] Future Scheduled 2022-06-11 HEPATITIS B VACCINES [facility] Test 16:10:12 (1 of 3 - Risk 3-dose series) [code = HEPATITIS B VACCINES (1 of 3 - Risk 3-dose series)] Future Scheduled 2022-06-11 COVID-19 VACCINE (3 - [facility] Test 16:10:12 Booster for Pfizer series) [code = COVID-19 VACCINE (3 - Booster for Pfizer series)] Future Scheduled 2022-06-11 65+ [facility]AL [facility] 16:10:12 VACCINE (4 - PPSV23 if available, else PCV20) [code = 65+ PNEUMOCOCCAL VACCINE (4 - PPSV23 if available, else PCV20)] Future Scheduled 2022-06-11 INFLUENZA VACCINE Method [facility] Test 16:10:12 [code = INFLUENZA VACCINE] Future Scheduled 2022-06-11 SHINGLES VACCINES (1 Met [facility] Test 16:10:12 of 2) [code = SHINGLES VACCINES (1 of 2)] Future Scheduled 2022-06-11 BREAST CANCER [facility] Test 16:10:12 SCREENING [code = BREAST CANCER SCREENING] Future Scheduled 2022-06-11 COLONOSCOPY SCREENING [facility] Test 16:10:12 [code = COLONOSCOPY SCREENING] Future Scheduled 2022-06-11 HEPATITIS B VACCINES [facility] Test 16:10:12 (1 of 3 - Risk 3-dose series) [code = HEPATITIS B VACCINES (1 of 3 - Risk 3-dose series)] Future Scheduled 2022-06-11 COVID-19 VACCINE (3 - [facility] Test 16:10:12 Booster for Pfizer series) [code = COVID-19 VACCINE (3 - Booster for Pfizer series)] Future Scheduled 2022-06-11 65+ [facility]CCAL [facility] 16:10:12 VACCINE (4 - PPSV23 if available, else PCV20) [code = 65+ PNEUMOCOCCAL VACCINE (4 - PPSV23 if available, else PCV20)] Future Scheduled 2022-06-11 INFLUENZA VACCINE Method [facility] Test 16:10:12 [code = INFLUENZA VACCINE] Future Scheduled 2022-06-11 SHINGLES VACCINES (1 Met [facility] Test 16:10:12 of 2) [code = SHINGLES VACCINES (1 of 2)] Future Scheduled 2022-06-11 BREAST CANCER [facility] Test 16:10:12 SCREENING [code = BREAST CANCER SCREENING] Future Scheduled 2022-06-11 COLONOSCOPY SCREENING [facility] Test 16:10:12 [code = COLONOSCOPY SCREENING] Future Scheduled 2022-06-11 HEPATITIS B VACCINES Met [facility] Test 16:10:12 (1 of 3 - Risk 3-dose series) [code = HEPATITIS B VACCINES (1 of 3 - Risk 3-dose series)] Future Scheduled 2022-06-11 COVID-19 VACCINE (3 - Me [facility] Test 16:10:12 Booster for Pfizer series) [code = COVID-19 VACCINE (3 - Booster for Pfizer series)] Future Scheduled 2022-06-11 65+ [facility]AL [facility] 16:10:12 VACCINE (4 - PPSV23 if available, else PCV20) [code = 65+ PNEUMOCOCCAL VACCINE (4 - PPSV23 if available, else PCV20)] Future Scheduled 2022-06-11 INFLUENZA VACCINE Method [facility] Test 16:10:12 [code = INFLUENZA VACCINE] Future Scheduled 2022-05-10 SHINGLES VACCINES (1 Met [facility] Test 10:21:35 of 2) [code = SHINGLES VACCINES (1 of 2)] Future Scheduled 2022-05-10 BREAST CANCER [facility] Test 10:21:35 SCREENING [code = BREAST CANCER SCREENING] Future Scheduled 2022-05-10 COLONOSCOPY SCREENING [facility] Test 10:21:35 [code = COLONOSCOPY SCREENING] Future Scheduled 2022-05-10 HEPATITIS B VACCINES Met [facility] Test 10:21:35 (1 of 3 - Risk 3-dose series) [code = HEPATITIS B VACCINES (1 of 3 - Risk 3-dose series)] Future Scheduled 2022-05-10 COVID-19 VACCINE (3 - Me [facility] Test 10:21:35 Booster for Pfizer series) [code = COVID-19 VACCINE (3 - Booster for Pfizer series)] Future Scheduled 2022-05-10 65+ [facility]CCAL [facility] 10:21:35 VACCINE (4 - PPSV23 if available, else PCV20) [code = 65+ PNEUMOCOCCAL VACCINE (4 - PPSV23 if available, else PCV20)] Future Scheduled 2022-05-10 INFLUENZA VACCINE Method [facility] Test 10:21:35 [code = INFLUENZA VACCINE] Future Scheduled 2022-05-10 SHINGLES VACCINES (1 Met [facility] Test 10:21:35 of 2) [code = SHINGLES VACCINES (1 of 2)] Future Scheduled 2022-05-10 BREAST CANCER [facility] Test 10:21:35 SCREENING [code = BREAST CANCER SCREENING] Future Scheduled 2022-05-10 COLONOSCOPY SCREENING Me [facility] Test 10:21:35 [code = COLONOSCOPY SCREENING] Future Scheduled 2022-05-10 HEPATITIS B VACCINES [facility] Test 10:21:35 (1 of 3 - Risk 3-dose series) [code = HEPATITIS B VACCINES (1 of 3 - Risk 3-dose series)] Future Scheduled 2022-05-10 COVID-19 VACCINE (3 - Me [facility] Test 10:21:35 Booster for Pfizer series) [code = COVID-19 VACCINE (3 - Booster for Pfizer series)] Future Scheduled 2022-05-10 65+ [facility]AL [facility] 10:21:35 VACCINE (4 - PPSV23 if available, else PCV20) [code = 65+ PNEUMOCOCCAL VACCINE (4 - PPSV23 if available, else PCV20)] Future Scheduled 2022-05-10 INFLUENZA VACCINE Method [facility] Test 10:21:35 [code = INFLUENZA VACCINE] Future Scheduled 2022-05-06 SHINGLES VACCINES (1 Met [facility] Test 14:03:13 of 2) [code = SHINGLES VACCINES (1 of 2)] Future Scheduled 2022-05-06 BREAST CANCER [facility] Test 14:03:13 SCREENING [code = BREAST CANCER SCREENING] Future Scheduled 2022-05-06 COLONOSCOPY SCREENING [facility] Test 14:03:13 [code = COLONOSCOPY SCREENING] Future Scheduled 2022-05-06 HEPATITIS B VACCINES Met [facility] Test 14:03:13 (1 of 3 - Risk 3-dose series) [code = HEPATITIS B VACCINES (1 of 3 - Risk 3-dose series)] Future Scheduled 2022-05-06 COVID-19 VACCINE (3 - Me [facility] Test 14:03:13 Booster for Pfizer series) [code = COVID-19 VACCINE (3 - Booster for Pfizer series)] Future Scheduled 2022-05-06 65+ [facility] VACCINE (4 - PPSV23 if available, else PCV20) [code = 65+ PNEUMOCOCCAL VACCINE (4 - PPSV23 if available, else PCV20)] Future Scheduled 2022-05-06 INFLUENZA VACCINE Method [facility] Test 14:03:13 [code = INFLUENZA VACCINE] Future Scheduled 2022-04-30 SHINGLES VACCINES (1 Met [facility] Test 01:07:32 of 2) [code = SHINGLES VACCINES (1 of 2)] Future Scheduled 2022-04-30 BREAST CANCER [facility] Test 01:07:32 SCREENING [code = BREAST CANCER SCREENING] Future Scheduled 2022-04-30 COLONOSCOPY SCREENING [facility] Test 01:07:32 [code = COLONOSCOPY SCREENING] Future Scheduled 2022-04-30 HEPATITIS B VACCINES Met [facility] Test 01:07:32 (1 of 3 - Risk 3-dose series) [code = HEPATITIS B VACCINES (1 of 3 - Risk 3-dose series)] Future Scheduled 2022-04-30 COVID-19 VACCINE (3 - [facility] Test 01:07:32 Booster for Pfizer series) [...] Scheduled 2022-04-30 SHINGLES VACCINES (1 Met [facility] Test 01:07:32 of 2) [code = SHINGLES VACCINES (1 of 2)] Future Scheduled 2022-04-30 BREAST CANCER [facility] Test 01:07:32 SCREENING [code = BREAST CANCER SCREENING] Future Scheduled 2022-04-30 COLONOSCOPY SCREENING [facility] Test 01:07:32 [code = COLONOSCOPY SCREENING] Future Scheduled 2022-04-30 HEPATITIS B VACCINES Met [facility] Test 01:07:32 (1 of 3 - Risk 3-dose series) [code = HEPATITIS B VACCINES (1 of 3 - Risk 3-dose series)] Future Scheduled 2022-04-30 COVID-19 VACCINE (3 - [facility] Test 01:07:32 Booster for Pfizer series) [code = COVID-19 VACCINE (3 - Booster for Pfizer series)] Future Scheduled 2022-04-30 65+ PNEUMOCOCCAL [facility] Test 01:07:32 VACCINE (4 - PPSV23 if available, else PCV20) [code = 65+ PNEUMOCOCCAL VACCINE (4 - PPSV23 if available, else PCV20)] Future Scheduled 2022-04-30 INFLUENZA VACCINE Method [facility] Test 01:07:32 [code = INFLUENZA VACCINE] Future Scheduled 2022-04-30 SHINGLES VACCINES (1 Met [facility] Test 01:07:32 of 2) [code = SHINGLES VACCINES (1 of 2)] Future Scheduled 2022-04-30 BREAST CANCER [facility] Test 01:07:32 SCREENING [code = BREAST CANCER SCREENING] Future Scheduled 2022-04-30 COLONOSCOPY SCREENING [facility] Test 01:07:32 [code = COLONOSCOPY SCREENING] Future Scheduled 2022-04-30 HEPATITIS B VACCINES Met [facility] Test 01:07:32 (1 of 3 - Risk 3-dose series) [code = HEPATITIS B VACCINES (1 of 3 - Risk 3-dose series)] Future Scheduled 2022-04-30 COVID-19 VACCINE (3 - [facility] Test 01:07:32 Booster for Pfizer series) [...] Scheduled 2022-04-25 SHINGLES VACCINES (1 Met [facility] Test 01:45:02 of 2) [code = SHINGLES VACCINES (1 of 2)] Future Scheduled 2022-04-25 BREAST CANCER [facility] Test 01:45:02 SCREENING [code = BREAST CANCER SCREENING] Future Scheduled 2022-04-25 COLONOSCOPY SCREENING [facility] Test 01:45:02 [code = COLONOSCOPY SCREENING] Future Scheduled 2022-04-25 HEPATITIS B VACCINES Met [facility] Test 01:45:02 (1 of 3 - Risk 3-dose series) [code = HEPATITIS B VACCINES (1 of 3 - Risk 3-dose series)] Future Scheduled 2022-04-25 COVID-19 VACCINE (3 - [facility] Test 01:45:02 Booster for Pfizer series) [code = COVID-19 VACCINE (3 - Booster for Pfizer series)] Future Scheduled 2022-04-25 65+ [facility] 01:[facility]02 VACCINE (4 - PPSV23 if available, else PCV20) [code = 65+ PNEUMOCOCCAL VACCINE (4 - PPSV23 if available, else PCV20)] Future Scheduled 2022-04-25 INFLUENZA VACCINE Method [facility] Test 01:45:02 [code = INFLUENZA VACCINE] Future Scheduled 2022-03-25 SHINGLES VACCINES (1 Met [facility] Test 14:48:42 of 2) [code = SHINGLES VACCINES (1 of 2)] Future Scheduled 2022-03-25 BREAST CANCER [facility] Test 14:48:42 SCREENING [code = BREAST CANCER SCREENING] Future Scheduled 2022-03-25 COLONOSCOPY SCREENING [facility] Test 14:48:42 [code = COLONOSCOPY SCREENING] Future Scheduled 2022-03-25 HEPATITIS B VACCINES Met [facility] Test 14:48:42 (1 of 3 - Risk 3-dose series) [code = HEPATITIS B VACCINES (1 of 3 - Risk 3-dose series)] Future Scheduled 2022-03-25 COVID-19 VACCINE (3 - Me [facility] Test 14:48:42 Booster for Pfizer series) [code = COVID-19 VACCINE (3 - Booster for Pfizer series)] Future Scheduled 2022-03-25 65+ PNEUMOCOCCAL [facility] Test 14:48:42 VACCINE (4 - PPSV23 if available, else PCV20) [code = 65+ PNEUMOCOCCAL VACCINE (4 - PPSV23 if available, else PCV20)] Future Scheduled 2022-03-25 INFLUENZA VACCINE Method [facility] Test 14:48:42 [code = INFLUENZA VACCINE] Future Scheduled 2022-03-25 SHINGLES VACCINES (1 Met [facility] Test 14:48:42 of 2) [code = SHINGLES VACCINES (1 of 2)] Future Scheduled 2022-03-25 BREAST CANCER [facility] Test 14:48:42 SCREENING [code = BREAST CANCER SCREENING] Future Scheduled 2022-03-25 COLONOSCOPY SCREENING [facility] Test 14:48:42 [code = COLONOSCOPY SCREENING] Future Scheduled 2022-03-25 HEPATITIS B VACCINES Met [facility] Test 14:48:42 (1 of 3 - Risk 3-dose series) [code = HEPATITIS B VACCINES (1 of 3 - Risk 3-dose series)] Future Scheduled 2022-03-25 COVID-19 VACCINE (3 - [facility] Test 14:48:42 Booster for Pfizer series) [code = COVID-19 VACCINE (3 - Booster for Pfizer series)] Future Scheduled 2022-03-25 65+ PNEUMOCOCCAL [facility] Test 14:48:42 VACCINE (4 - PPSV23 if available, else PCV20) [code = 65+ PNEUMOCOCCAL VACCINE (4 - PPSV23 if available, else PCV20)] Future Scheduled 2022-03-25 INFLUENZA VACCINE Method [facility] Test 14:48:42 [code = INFLUENZA VACCINE] Future Scheduled 2022-03-25 SHINGLES VACCINES (1 Met [facility] Test 14:48:42 of 2) [code = SHINGLES VACCINES (1 of 2)] Future Scheduled 2022-03-25 BREAST CANCER [facility] Test 14:48:42 SCREENING [code = BREAST CANCER SCREENING] Future Scheduled 2022-03-25 COLONOSCOPY SCREENING [facility] Test 14:48:42 [code = COLONOSCOPY SCREENING] Future Scheduled 2022-03-25 HEPATITIS B VACCINES Met [facility] Test 14:48:42 (1 of 3 - Risk 3-dose series) [code = HEPATITIS B VACCINES (1 of 3 - Risk 3-dose series)] Future Scheduled 2022-03-25 COVID-19 VACCINE (3 - Me [facility] Test 14:48:42 Booster for Pfizer series) [code = COVID-19 VACCINE (3 - Booster for Pfizer series)] Future Scheduled 2022-03-25 65+ [facility] 14:48:42 VACCINE (4 - PPSV23 if available, else PCV20) [code = 65+ PNEUMOCOCCAL VACCINE (4 - PPSV23 if available, else PCV20)] Future Scheduled 2022-03-25 INFLUENZA VACCINE Method [facility] Test 14:48:42 [code = INFLUENZA VACCINE] Future Scheduled 2022-03-25 SHINGLES VACCINES (1 Met [facility] Test 14:48:42 of 2) [code = SHINGLES VACCINES (1 of 2)] Future Scheduled 2022-03-25 BREAST CANCER [facility] Test 14:48:42 SCREENING [code = BREAST CANCER SCREENING] Future Scheduled 2022-03-25 COLONOSCOPY SCREENING [facility] Test 14:48:42 [code = COLONOSCOPY SCREENING] Future Scheduled 2022-03-25 HEPATITIS B VACCINES Met [facility] Test 14:48:42 (1 of 3 - Risk 3-dose series) [code = HEPATITIS B VACCINES (1 of 3 - Risk 3-dose series)] Future Scheduled 2022-03-25 COVID-19 VACCINE (3 - Me [facility] Test 14:48:42 Booster for Pfizer series) [code = COVID-19 VACCINE (3 - Booster for Pfizer series)] Future Scheduled 2022-03-25 65+ [facility] 14:48:42 VACCINE (4 - PPSV23 if available, else PCV20) [code = 65+ PNEUMOCOCCAL VACCINE (4 - PPSV23 if available, else PCV20)] Future Scheduled 2022-03-25 INFLUENZA VACCINE Method [facility] Test 14:48:42 [code = INFLUENZA VACCINE] Future Scheduled 2022-03-25 SHINGLES VACCINES (1 Met [facility] Test 14:48:42 of 2) [code = SHINGLES VACCINES (1 of 2)] Future Scheduled 2022-03-25 BREAST CANCER [facility] Test 14:48:42 SCREENING [code = BREAST CANCER SCREENING] Future Scheduled 2022-03-25 COLONOSCOPY SCREENING [facility] Test 14:48:42 [code = COLONOSCOPY SCREENING] Future Scheduled 2022-03-25 HEPATITIS B VACCINES Met [facility] Test 14:48:42 (1 of 3 - Risk 3-dose series) [code = HEPATITIS B VACCINES (1 of 3 - Risk 3-dose series)] Future Scheduled 2022-03-25 COVID-19 VACCINE (3 - Me [facility] Test 14:48:42 Booster for Pfizer series) [code = COVID-19 VACCINE (3 - Booster for Pfizer series)] Future Scheduled 2022-03-25 65+ PNEUMOCOCCAL [facility] Test 14:48:42 VACCINE (4 - PPSV23 if available, else PCV20) [code = 65+ PNEUMOCOCCAL VACCINE (4 - PPSV23 if available, else PCV20)] Future Scheduled 2022-03-25 INFLUENZA VACCINE Method [facility] Test 14:48:42 [code = INFLUENZA VACCINE] Future Scheduled 2022-03-25 SHINGLES VACCINES (1 Met [facility] Test 14:48:42 of 2) [code = SHINGLES VACCINES (1 of 2)] Future Scheduled 2022-03-25 BREAST CANCER [facility] Test 14:48:42 SCREENING [code = BREAST CANCER SCREENING] Future Scheduled 2022-03-25 COLONOSCOPY SCREENING [facility] Test 14:48:42 [code = COLONOSCOPY SCREENING] Future Scheduled 2022-03-25 HEPATITIS B VACCINES Met [facility] Test 14:48:42 (1 of 3 - Risk 3-dose series) [code = HEPATITIS B VACCINES (1 of 3 - Risk 3-dose series)] Future Scheduled 2022-03-25 COVID-19 VACCINE (3 - Me [facility] Test 14:48:42 Booster for Pfizer series) [code = COVID-19 VACCINE (3 - Booster for Pfizer series)] Future Scheduled 2022-03-25 65+ [facility] 14:48[facility] VACCINE (4 - PPSV23 if available, else PCV20) [code = 65+ PNEUMOCOCCAL VACCINE (4 - PPSV23 if available, else PCV20)] Future Scheduled 2022-03-25 INFLUENZA VACCINE Method [facility] Test 14:48:42 [code = INFLUENZA VACCINE] Future Scheduled 2022-03-25 SHINGLES VACCINES (1 Met [facility] Test 14:48:42 of 2) [code = SHINGLES VACCINES (1 of 2)] Future Scheduled 2022-03-25 BREAST CANCER [facility] Test 14:48:42 SCREENING [code = BREAST CANCER SCREENING] Future Scheduled 2022-03-25 COLONOSCOPY SCREENING [facility] Test 14:48:42 [code = COLONOSCOPY SCREENING] Future Scheduled 2022-03-25 HEPATITIS B VACCINES Met [facility] Test 14:48:42 (1 of 3 - Risk 3-dose series) [code = HEPATITIS B VACCINES (1 of 3 - Risk 3-dose series)] Future Scheduled 2022-03-25 COVID-19 VACCINE (3 - Me [facility] Test 14:48:42 Booster for Pfizer series) [code = COVID-19 VACCINE (3 - Booster for Pfizer series)] Future Scheduled 2022-03-25 65+ [facility] 14:48[facility] VACCINE (4 - PPSV23 if available, else PCV20) [code = 65+ PNEUMOCOCCAL VACCINE (4 - PPSV23 if available, else PCV20)] Future Scheduled 2022-03-25 INFLUENZA VACCINE Method [facility] Test 14:48:42 [code = INFLUENZA VACCINE] Future Scheduled 2022-03-25 SHINGLES VACCINES (1 Met [facility] Test 14:48:42 of 2) [code = SHINGLES VACCINES (1 of 2)] Future Scheduled 2022-03-25 BREAST CANCER [facility] Test 14:48:42 SCREENING [code = BREAST CANCER SCREENING] Future Scheduled 2022-03-25 COLONOSCOPY SCREENING [facility] Test 14:48:42 [code = COLONOSCOPY SCREENING] Future Scheduled 2022-03-25 HEPATITIS B VACCINES [facility] Test 14:48:42 (1 of 3 - Risk 3-dose series) [code = HEPATITIS B VACCINES (1 of 3 - Risk 3-dose series)] Future Scheduled 2022-03-25 COVID-19 VACCINE (3 - Me [facility] Test 14:48:42 Booster for [...] Scheduled 2022-03-25 SHINGLES VACCINES (1 Met [facility] Test 14:48:42 of 2) [code = SHINGLES VACCINES (1 of 2)] Future Scheduled 2022-03-25 BREAST CANCER [facility] Test 14:48:42 SCREENING [code = BREAST CANCER SCREENING] Future Scheduled 2022-03-25 COLONOSCOPY SCREENING [facility] Test 14:48:42 [code = COLONOSCOPY SCREENING] Future Scheduled 2022-03-25 HEPATITIS B VACCINES [facility] Test 14:48:42 (1 of 3 - Risk 3-dose series) [code = HEPATITIS B VACCINES (1 of 3 - Risk 3-dose series)] Future Scheduled 2022-03-25 COVID-19 VACCINE (3 - [facility] Test 14:48:42 Booster for Pfizer series) [code = COVID-19 VACCINE (3 - Booster for Pfizer series)] Future Scheduled 2022-03-25 65+ [facility]AL [facility] 14:48:42 VACCINE (4 - PPSV23 if available, else PCV20) [code = 65+ PNEUMOCOCCAL VACCINE (4 - PPSV23 if available, else PCV20)] Future Scheduled 2022-03-25 INFLUENZA VACCINE Method [facility] Test 14:48:42 [code = INFLUENZA VACCINE] Future Scheduled 2022-03-04 SHINGLES VACCINES (1 Met [facility] Test 14:03:57 of 2) [code = SHINGLES VACCINES (1 of 2)] Future Scheduled 2022-03-04 BREAST CANCER [facility] Test 14:03:57 SCREENING [code = BREAST CANCER SCREENING] Future Scheduled 2022-03-04 COLONOSCOPY SCREENING [facility] Test 14:03:57 [code = COLONOSCOPY SCREENING] Future Scheduled 2022-03-04 HEPATITIS B VACCINES [facility] Test 14:03:57 (1 of 3 - Risk 3-dose series) [code = HEPATITIS B VACCINES (1 of 3 - Risk 3-dose series)] Future Scheduled 2022-03-04 COVID-19 VACCINE (3 - [facility] Test 14:03:57 Booster for Pfizer series) [code = COVID-19 VACCINE (3 - Booster for Pfizer series)] Future Scheduled 2022-03-04 65+ [facility] 14:03:57 VACCINE (4 - PPSV23 if available, else PCV20) [code = 65+ PNEUMOCOCCAL VACCINE (4 - PPSV23 if available, else PCV20)] Future Scheduled 2022-03-04 INFLUENZA VACCINE Method [facility] Test 14:03:57 [code = INFLUENZA VACCINE] Future Scheduled 2022-03-04 SHINGLES VACCINES (1 Met [facility] Test 14:03:57 of 2) [code = SHINGLES VACCINES (1 of 2)] Future Scheduled 2022-03-04 BREAST CANCER [facility] Test 14:03:57 SCREENING [code = BREAST CANCER SCREENING] Future Scheduled 2022-03-04 COLONOSCOPY SCREENING [facility] Test 14:03:57 [code = COLONOSCOPY SCREENING] Future Scheduled 2022-03-04 HEPATITIS B VACCINES Met [facility] Test 14:03:57 (1 of 3 - Risk 3-dose series) [code = HEPATITIS B VACCINES (1 of 3 - Risk 3-dose series)] Future Scheduled 2022-03-04 COVID-19 VACCINE (3 - [facility] Test 14:03:57 Booster for Pfizer series) [code = COVID-19 VACCINE (3 - Booster for Pfizer series)] Future Scheduled 2022-03-04 65+ [facility] 14:03:57 VACCINE (4 - PPSV23 if available, else PCV20) [code = 65+ PNEUMOCOCCAL VACCINE (4 - PPSV23 if available, else PCV20)] Future Scheduled 2022-03-04 INFLUENZA VACCINE Method [facility] Test 14:03:57 [code = INFLUENZA VACCINE] Future Scheduled 2022-03-04 SHINGLES VACCINES (1 Met [facility] Test 14:03:57 of 2) [code = SHINGLES VACCINES (1 of 2)] Future Scheduled 2022-03-04 BREAST CANCER [facility] Test 14:03:57 SCREENING [code = BREAST CANCER SCREENING] Future Scheduled 2022-03-04 COLONOSCOPY SCREENING [facility] Test 14:03:57 [code = COLONOSCOPY SCREENING] Future Scheduled 2022-03-04 HEPATITIS B VACCINES [facility] Test 14:03:57 (1 of 3 - Risk 3-dose series) [code = HEPATITIS B VACCINES (1 of 3 - Risk 3-dose series)] Future Scheduled 2022-03-04 COVID-19 VACCINE (3 - [facility] Test 14:03:57 Booster for Pfizer series) [code = COVID-19 VACCINE (3 - Booster for Pfizer series)] Future Scheduled 2022-03-04 65+ PNEUMOCOCCAL [facility] Test 14:03:57 VACCINE (4 - PPSV23 if available, else PCV20) [code = 65+ PNEUMOCOCCAL VACCINE (4 - PPSV23 if available, else PCV20)] Future Scheduled 2022-03-04 INFLUENZA VACCINE Method [facility] Test 14:03:57 [code = INFLUENZA VACCINE] Future Scheduled 2022-03-04 SHINGLES VACCINES (1 Met [facility] Test 14:03:57 of 2) [code = SHINGLES VACCINES (1 of 2)] Future Scheduled 2022-03-04 BREAST CANCER [facility] Test 14:03:57 SCREENING [code = BREAST CANCER SCREENING] Future Scheduled 2022-03-04 COLONOSCOPY SCREENING [facility] Test 14:03:57 [code = COLONOSCOPY SCREENING] Future Scheduled 2022-03-04 HEPATITIS B VACCINES [facility] Test 14:03:57 (1 of 3 - Risk 3-dose series) [code = HEPATITIS B VACCINES (1 of 3 - Risk 3-dose series)] Future Scheduled 2022-03-04 COVID-19 VACCINE (3 - Me [facility] Test 14:03:57 Booster for Pfizer series) [code = COVID-19 VACCINE (3 - Booster for Pfizer series)] Future Scheduled 2022-03-04 65+ [facility] 14:03:57 VACCINE (4 - PPSV23 if available, else PCV20) [code = 65+ PNEUMOCOCCAL VACCINE (4 - PPSV23 if available, else PCV20)] Future Scheduled 2022-03-04 INFLUENZA VACCINE Method [facility] Test 14:03:57 [code = INFLUENZA VACCINE] Future Scheduled 2022-02-11 SHINGLES VACCINES (1 Met [facility] Test 13:39:12 of 2) [code = SHINGLES VACCINES (1 of 2)] Future Scheduled 2022-02-11 BREAST CANCER [facility] Test 13:39:12 SCREENING [code = BREAST CANCER SCREENING] Future Scheduled 2022-02-11 COLONOSCOPY SCREENING [facility] Test 13:39:12 [code = COLONOSCOPY SCREENING] Future Scheduled 2022-02-11 HEPATITIS B VACCINES [facility] Test 13:39:12 (1 of 3 - Risk 3-dose series) [code = HEPATITIS B VACCINES (1 of 3 - Risk 3-dose series)] Future Scheduled 2022-02-11 COVID-19 VACCINE (3 - [facility] Test 13:39:12 Booster for Pfizer series) [code = COVID-19 VACCINE (3 - Booster for Pfizer series)] Future Scheduled 2022-02-11 65+ PNEUMOCOCCAL [facility] Test 13:39:12 VACCINE (4 - PPSV23 or PCV20) [code = 65+ PNEUMOCOCCAL VACCINE (4 - PPSV23 or PCV20)] Future Scheduled 2022-02-11 INFLUENZA VACCINE Method [facility] Test 13:39:12 [code = INFLUENZA VACCINE] Future Scheduled 2022-01-29 SHINGLES VACCINES (1 Met [facility] Test 14:07:20 of 2) [code = SHINGLES VACCINES (1 of 2)] Future Scheduled 2022-01-29 BREAST CANCER [facility] Test 14:07:20 SCREENING [code = BREAST CANCER SCREENING] Future Scheduled 2022-01-29 COLONOSCOPY SCREENING [facility] Test 14:07:20 [code = COLONOSCOPY SCREENING] Future Scheduled 2022-01-29 HEPATITIS B VACCINES [facility] Test 14:07:20 (1 of 3 - Risk 3-dose series) [code = HEPATITIS B VACCINES (1 of 3 - Risk 3-dose series)] Future Scheduled 2022-01-29 COVID-19 VACCINE (3 - [facility] Test 14:07:20 Booster for Pfizer series) [code = COVID-19 VACCINE (3 - Booster for Pfizer series)] Future Scheduled 2022-01-29 65+ PNEUMOCOCCAL [facility] Test 14:07:20 VACCINE (4 - PPSV23 or PCV20) [code = 65+ PNEUMOCOCCAL VACCINE (4 - PPSV23 or PCV20)] Future Scheduled 2022-01-29 INFLUENZA VACCINE Method [facility] Test 14:07:20 [code = INFLUENZA VACCINE] Future Scheduled 2022-01-29 SHINGLES VACCINES (1 Met [facility] Test 14:07:20 of 2) [code = SHINGLES VACCINES (1 of 2)] Future Scheduled 2022-01-29 BREAST CANCER [facility] Test 14:07:20 SCREENING [code = BREAST CANCER SCREENING] Future Scheduled 2022-01-29 COLONOSCOPY SCREENING [facility] Test 14:07:20 [code = COLONOSCOPY SCREENING] Future Scheduled 2022-01-29 HEPATITIS B VACCINES [facility] Test 14:07:20 (1 of 3 - Risk 3-dose series) [code = HEPATITIS B VACCINES (1 of 3 - Risk 3-dose series)] Future Scheduled 2022-01-29 COVID-19 VACCINE (3 - Me [facility] Test 14:07:20 Booster for Pfizer series) [code = COVID-19 VACCINE (3 - Booster for Pfizer series)] Future Scheduled 2022-01-29 65+ [facility]:07:[facility] VACCINE (4 - PPSV23 or PCV20) [code = 65+ PNEUMOCOCCAL VACCINE (4 - PPSV23 or PCV20)] Future Scheduled 2022-01-29 INFLUENZA VACCINE Method [facility] Test 14:07:20 [code = INFLUENZA VACCINE] Future Scheduled 2022-01-29 SHINGLES VACCINES (1 Met [facility] Test 14:07:20 of 2) [code = SHINGLES VACCINES (1 of 2)] Future Scheduled 2022-01-29 BREAST CANCER [facility] Test 14:07:20 SCREENING [code = BREAST CANCER SCREENING] Future Scheduled 2022-01-29 COLONOSCOPY SCREENING [facility] Test 14:07:20 [code = COLONOSCOPY SCREENING] Future Scheduled 2022-01-29 HEPATITIS B VACCINES [facility] Test 14:07:20 (1 of 3 - Risk 3-dose series) [code = HEPATITIS B VACCINES (1 of 3 - Risk 3-dose series)] Future Scheduled 2022-01-29 COVID-19 VACCINE (3 - Me [facility] Test 14:07:20 Booster for Pfizer series) [code = COVID-19 VACCINE (3 - Booster for Pfizer series)] Future Scheduled 2022-01-29 65+ [facility] 14:07:[facility] VACCINE (4 - PPSV23 or PCV20) [code = 65+ PNEUMOCOCCAL VACCINE (4 - PPSV23 or PCV20)] Future Scheduled 2022-01-29 INFLUENZA VACCINE Method [facility] Test 14:07:20 [code = INFLUENZA VACCINE] Future Scheduled 2022-01-29 SHINGLES VACCINES (1 Met [facility] Test 14:07:20 of 2) [code = SHINGLES VACCINES (1 of 2)] Future Scheduled 2022-01-29 BREAST CANCER [facility] Test 14:07:20 SCREENING [code = BREAST CANCER SCREENING] Future Scheduled 2022-01-29 COLONOSCOPY SCREENING [facility] Test 14:07:20 [code = COLONOSCOPY SCREENING] Future Scheduled 2022-01-29 HEPATITIS B VACCINES [facility] Test 14:07:20 (1 of 3 - Risk 3-dose series) [code = HEPATITIS B VACCINES (1 of 3 - Risk 3-dose series)] Future Scheduled 2022-01-29 COVID-19 VACCINE (3 - [facility] Test 14:07:20 Booster for Pfizer series) [code = COVID-19 VACCINE (3 - Booster for Pfizer series)] Future Scheduled 2022-01-29 65+ PNEUMOCOCCAL [facility] Test 14:07:20 VACCINE (4 - PPSV23 or PCV20) [code = 65+ PNEUMOCOCCAL VACCINE (4 - PPSV23 or PCV20)] Future Scheduled 2022-01-29 INFLUENZA VACCINE [facility] Test 14:07:20 [code = INFLUENZA VACCINE] Future Scheduled 2022-01-20 SHINGLES VACCINES (1 [facility] Test 06:12:34 of 2) [code = SHINGLES VACCINES (1 of 2)] Future Scheduled 2022-01-20 Screening for [facility] Test 06:12:34 malignant neoplasm of cervix (procedure) [code = 835485331] Future Scheduled 2022-01-20 BREAST CANCER [facility] Test 06:12:34 SCREENING [code = BREAST CANCER SCREENING] Future Scheduled 2022-01-20 COLONOSCOPY SCREENING [facility] Test 06:12:34 [code = COLONOSCOPY SCREENING] Future Scheduled 2022-01-20 HEPATITIS B VACCINES [facility] Test 06:12:34 (1 of 3 - Risk 3-dose series) [code = HEPATITIS B VACCINES (1 of 3 - Risk 3-dose series)] Future Scheduled 2022-01-20 COVID-19 VACCINE (3 - [facility] Test 06:12:34 Booster for Pfizer series) [code = COVID-19 VACCINE (3 - Booster for Pfizer series)] Future Scheduled 2022-01-20 65+ P[facility]UMOCOCCAL [facility] 06:12:34 VACCINE (4 - PPSV23 or PCV20) [code = 65+ PNEUMOCOCCAL VACCINE (4 - PPSV23 or PCV20)] Future Scheduled 2022-01-20 INFLUENZA VACCINE Method [facility] Test 06:12:34 [code = INFLUENZA VACCINE] Future Scheduled 2022-01-16 SHINGLES VACCINES (1 [facility] Test 12:09:25 of 2) [code = SHINGLES VACCINES (1 of 2)] Future Scheduled 2022-01-16 Screening for [facility] Test 12:09:25 malignant neoplasm of cervix (procedure) [code = 930177778] Future Scheduled 2022-01-16 BREAST CANCER [facility] Test 12:09:25 SCREENING [code = BREAST CANCER SCREENING] Future Scheduled 2022-01-16 COLONOSCOPY SCREENING [facility] Test 12:09:25 [code = COLONOSCOPY SCREENING] Future Scheduled 2022-01-16 HEPATITIS B VACCINES [facility] Test 12:09:25 (1 of 3 - Risk 3-dose series) [code = HEPATITIS B VACCINES (1 of 3 - Risk 3-dose series)] Future Scheduled 2022-01-16 COVID-19 VACCINE (3 - [facility] Test 12:09:25 Booster for Pfizer series) [code = COVID-19 VACCINE (3 - Booster for Pfizer series)] Future Scheduled 2022-01-16 65+ [facility]OCOCCAL [facility] Test 12:09:25 VACCINE (4 - PPSV23 or PCV20) [code = 65+ PNEUMOCOCCAL VACCINE (4 - PPSV23 or PCV20)] Future Scheduled 2022-01-16 INFLUENZA VACCINE Method [facility] Test 12:09:25 [code = INFLUENZA VACCINE] Future Scheduled 2022-01-14 SHINGLES VACCINES (1 [facility] Test 04:11:46 of 2) [code = SHINGLES VACCINES (1 of 2)] Future Scheduled 2022-01-14 Screening for [facility] Test 04:11:46 malignant neoplasm of cervix (procedure) [code = 963192133] Future Scheduled 2022-01-14 BREAST CANCER [facility] Test 04:11:46 SCREENING [code = BREAST CANCER SCREENING] Future Scheduled 2022-01-14 COLONOSCOPY SCREENING [facility] Test 04:11:46 [code = COLONOSCOPY SCREENING] Future Scheduled 2022-01-14 HEPATITIS B VACCINES [facility] Test 04:11:46 (1 of 3 - Risk 3-dose series) [code = HEPATITIS B VACCINES (1 of 3 - Risk 3-dose series)] Future Scheduled 2022-01-14 COVID-19 VACCINE (3 - Me [facility] Test 04:11:46 Booster for Pfizer series) [code = COVID-19 VACCINE (3 - Booster for Pfizer series)] Future Scheduled 2022-01-14 65+ PNEUMOCOCCAL [facility] Test 04:11:46 VACCINE (4 - PPSV23 or PCV20) [code = 65+ PNEUMOCOCCAL VACCINE (4 - PPSV23 or PCV20)] Future Scheduled 2022-01-14 INFLUENZA VACCINE Method [facility] Test 04:11:46 [code = INFLUENZA VACCINE] Future Scheduled 2021-08-26 Screening for [facility] Test 13:02:23 malignant neoplasm of cervix (procedure) [code = [id number]] Future Scheduled 2021-08-26 BREAST CANCER [facility] Test 13:02:23 SCREENING [code = BREAST CANCER SCREENING] Future Scheduled 2021-08-26 COLONOSCOPY SCREENING [facility] Test 13:02:23 [code = COLONOSCOPY SCREENING] Future Scheduled 2021-08-26 Screening for [facility] Test 13:02:23 malignant neoplasm of lung (procedure) [code = [id number]] Future Scheduled 2021-08-26 SHINGLES VACCINES (#1) [facility] Test 13:02:23 [code = SHINGLES VACCINES (#1)] Future Scheduled 2021-08-26 COVID-19 VACCINE (3 - [facility] Test 13:02:23 Pfizer risk 4-dose series) [code = COVID-19 VACCINE (3 - Pfizer risk 4-dose series)] Future Scheduled 2021-08-26 65+ PNEUMOCOCCAL [facility] Test 13:02:23 VACCINE (4 of 4 - PPSV23) [code = 65+ PNEUMOCOCCAL VACCINE (4 of 4 - PPSV23)] Future Scheduled 2021-08-26 INFLUENZA VACCINE [facility] Test 13:02:23 [code = INFLUENZA VACCINE] Encounters Start End Encounter Admission Attending Care Care Encounter Source Date/Time Date/Time Type Type Clinicians Facility Department ID 2022-02-18 Outpatient [place]W W [id number] [place] 14:30:[address] [place] [address] 2021-07-14 Outpatient PANKAJ [facility] [id number] MS 09:33:51 [facility] 2021-06-02 Outpatient HEMATPOUR, [facility] [id number] [place] 13:58:59 [facility] 2021-04-28 Outpatient HEMATPOUR, [facility] [id number] [place] 11:21:22 [facility]alt [facility] 2021-03-20 Emergency [facility] [id number] Univers 16:07:40 ity of [facility] 2020-12-12 Outpatient HEMATPOUR, [facility] [id number] [place] 08:16:46 KHASHAYAR Healt 2020-10-31 Outpatient HEMATPOUR, [facility] [id number] UT 09:44:50 KHASHAYAR Healt 2020-09-30 Outpatient HEMATPOUR, [facility] [id number] UT 13:16:03 KHASHAYAR Healt 2022-09-03 2022-09-03 Outpatient R EAST, [facility] [id number] Univers 11:00:00 11:00:00 SANTIAGO barbosa [facility] 2022-08-24 2022-08-24 Refill East, 1.2.840.6 [id number] Univers 00:00:00 00:00:00 Santiago 59955.1.1 ity of 3.104.2.7 [place] .3.980324 Medica l .8 Branch 2022-05-20 2022-05-20 Telephone East, UNIVERSIT 1.2.840.114 [id number] Univers 00:00:00 00:00:00 Santiago [facility] 350.1.13.10 i ty of [place] [id number] [facility] 089 Branch 2022-05-10 2022-05-10 Emergency X BYRON, [facility] ERT [id number] Univers 10:30:00 16:31:00 HOME ity [facility] 2022-05-10 2022-05-10 Emergency Herald, TRAUMA 1.2.840.114 [id number] Univers 10:30:00 16:31:00 Home B CENTER 350.1.13.10 [place] [id number] [facility] 014 Branch 2022-05-10 2022-05-10 Telephone [facility], [facility] 1.2.840.114 [id number] Univers 00:00:00 00:00:00 [facility] 350.1.13.10 i [place] [id number] [address] 2022-05-08 2022-05-08 Emergency X VICK [facility] ERT [id number] Univers 16:18:00 18:42:00 THERESA barbosa [facility] 2022-05-08 2022-05-08 [facility] 1.2.840.114 [id number] Univers 16:18:00 18:42:00 Theresa BULLOCK 350.1.13.10 ity of [place] 4.2.7.2.686 [facility] [id number] [address] 2022-05-07 2022-05-07 Telephone [facility] 1.2.840.114 [id number] Univers 00:00:00 00:00:00 [facility] 350.1.13.10 i [place] [id number] [address] 2022-05-06 2022-05-06 Emergency David [facility] [id number] Univers 14:13:00 18:19:00 ANETTE macielcharlie [facility] 2022-05-06 2022-05-06 Emergency [facility] 1.2.816.903 [id number] Univers 14:13:00 18:19:00 Anette BULLOCK 350.1.13.10 ity of [place] 4.2.7.2.686 [facility] [id number] [address] 2022-05-06 2022-05-06 Telephone [facility] 1.2.840.114 [id number] Univers 00:00:00 00:00:00 [facility] 350.1.13.10 i [place] [id number] [address] 2022-04-22 2022-04-22 Emergency [facility] E[facility] [id number] Univers 13:55:00 17:00:00 PAULETTE ity [facility] 2022-04-22 2022-04-22 Emergency [facility] 1.2.755.361 [id number] Univers 13:55:00 17:00:00 Paulette Gonzales MARSHALL 350.1.13.10 i [place] [id number] [place] 011834 [place] 2022-04-07 2022-04-07 Outpatient R [facility] [id number] Univers 20:40:00 20:40:00 ATTENDING ity [facility] 2022-04-07 2022-04-07 Telephone Beltran, 1.2.840.8 [id number] Univers 00:00:00 00:00:00 Robbi Hairston 49729.1.1 i ty of 3.104.2.7 [place] .3.897777 Medica l .8 [place] 2022-03-05 2022-03-05 Sales And Customer Relations Rep [place] Cardenas 1.2.840.1 [id number] Univers 13:45:00 14:00:00 Visit [facility] 03422.1.1 ity of 3.104.2.7 [place] .3.910548 Medica l .8 [place] 2022-03-05 2022-03-05 Office JOSÉ ANTONIO Cardenas 1.2.943.227 [id number] Univers 13:00:00 13:30:00 Visit [facility] 350.1.13.10 i ty of [facility] 4.2.7.2.686 [facility] [id number] [address] 2022-03-05 2022-03-05 Outpatient R [facility] [id number] Univers 13:00:00 13:00:00 [facility] 2022-02-26 2022-02-26 Outpatient R [facility] [id number] Univers 08:30:00 08:30:00 [facility] 2022-02-26 2022-02-26 Outpatient R [facility] [id number] Univers 08:30:00 08:30:00 SANTIAGO ity of [facility] 2022-02-17 2022-02-17 Transition Stevo, 1.2.840.6 [id number] Univers 00:00:00 00:00:00 of Care Isaias Arredondo 55877.1.1 it y of 3.104.2.7 [place] .3.657827 Medica l .8 [place] 2022-02-10 2022-02-16 Inpatient X [facility] [id number] Univers 22:59:00 19:27:00 PETER ity of [facility] 2022-02-10 2022-02-16 Hospital Reilly Means 1.2.840.1 [id number] Univers 22:59:00 19:27:00 Encounter Ofe Shields 95781.1.1 ity of [place] 3.[place].2.7 [place] .3.388479 Medica l .8 [place] 2022-02-11 2022-02-11 Telephone East, 1.2.840.0 [id number] Univers 00:00:00 00:00:00 Santiago 73797.1.1 ity of 3.104.2.7 [place] .3.264742 Medica l .8 [place] 2022-02-10 2022-02-10 Travel 1.2.840.1 1.2.933.363 [id number] Univers 00:00:00 00:00:00 89721.1.1 350.1.13.10 ity of 3.104.2.7 4.[place].7.3.698 [place] .3.393768 084.8 Medica l .8 [place] 2022-01-30 2022-01-30 Telephone East, 1.2.840.1 [id number] Univers 00:00:00 00:00:00 [place] 82582.1.1 ity of 3.104.2.7 [place] .3.133602 Medica l .8 [place] 2022-01-06 2022-01-06 Orders Doctor CHRISTENSEN 1.2.840.114 [id number] Univers 00:00:00 00:00:00 Only Unassigned, JACKELINE 350.1.13.10 ity of [place] [facility] 4.2.7.2.686 Yomi as [id number] [facility] 009 Mission 2021-12-25 2021-12-25 Orders Doctor FERMIN 1.2.840.114 [id number] Univers 00:00:00 00:00:00 Only Unassigned, JACKELINE 350.1.13.10 ity of [place] [facility] 4.2.7.2.686 Yomi as [id number] [facility] 009 [place] 2021-12-12 2021-12-13 Emergency X Bill [facility] ERT [id number] Univers 23:53:00 01:52:00 ity of [facility] 2021-12-12 2021-12-13 Emergency Bill Coles [facility] 1.2.840.114 [id number] Univers 23:53:00 01:52:00 Kiersten BULLOCK 350.1.13.10 i ty [place] [id number] [facility] 084 Mission 2021-11-20 2021-11-20 Sales And Customer Relations Rep [facility] UNIVERS 1.2.840.114 [id number] Univers 09:45:00 10:00:00 Visit [facility] 350.1.13.10 ity of CL[place] 4[place] [id number] [facility] 316 [place] 2021-11-20 2021-11-20 Office [facility] 1.2.225.619 [id number] Univers 08:30:00 09:00:00 Visit [facility] 350.1.13.10 i ty of [facility] 4.2.7.2.[place] [id number] [facility] 089 [place] 2021-11-20 2021-11-20 Outpatient R [facility] [id number] Univers 08:30:00 08:30:00 [facility] 2021-11-20 2021-11-20 Outpatient R [facility] [id number] Univers 08:30:00 08:30:00 [facility] 2021-11-20 2021-11-20 Outpatient R [facility] [id number] Univers 08:30:00 08:30:00 SANTIAGO charlie [facility] 2021-11-20 2021-11-20 Outpatient R [facility] [id number] Univers 08:30:00 08:30:00 SANTIAGO barbosa [facility] 2021-10-24 2021-10-24 Emergency X [facility] ERT [id number] Univers 16:27:00 22:26:00 [facility] 2021-10-24 2021-10-24 Emergency X [facility] ERT [id number] Univers 16:27:00 22:26:00 CHARITY barbosa [facility] 2021-10-24 2021-10-24 Emergency Reilly Means [facility] 1.2.840. 114 [id number] Univers 16:27:00 22:26:00 ZainabKrishna parrajose [facility] 350.1.13.[address] [facility] 4.2.7.2.686 [facility] [id number] [address] 2021-10-23 2021-10-24 Emergency X [facility] ERT [id number] Univers 20:22:00 02:57:00 [facility] 2021-10-23 2021-10-24 [facility] 1.2.790.696 [id number] Univers 20:22:00 02:57:00 Char[facility] 350.1.13.[address] [facility] 4.2.7.2.686 [facility] [id number] [address] 2021-09-07 2021-09-07 Outpatient R SELF, [facility] [id number] Univers 08:00:00 08:00:00 GADIEL vogel clark [facility] 2021-09-07 2021-09-07 Outpatient R SELF, [facility] [id number] Univers 08:00:00 08:00:00 GADIEL rodas [facility] 2021-08-21 2021-08-21 Outpatient R [facility] [id number] Univers 10:45:00 10:45:00 SANTIAGO barbosa [facility] 2021-08-21 2021-08-21 Sales And Customer Relations Rep [place] Cardenas 1.2.840.1 [id number] Univers 10:45:00 10:45:00 Visit [facility] 05952.1.1 ity of 3.104.2.7 [place] .3.729087 Medica l .8 [place] 2021-08-21 2021-08-21 Office East, 1.2.840.9 [id number] Univers 08:30:00 09:00:00 Visit Santiago 75755.1.1 ity of 3.104.2.7 [place] .3.647516 Medica l .8 Mission 2021-08-21 2021-08-21 Office Ronald, UNIVERSIT 1.2.172.606 [id number] Univers 08:30:00 09:00:00 Visit Santiago [facility] 350.1.13.10 i ty of [place] [id number] [facility] 089 [place] 2021-08-21 2021-08-21 Outpatient R [facility] [id number] Univers 08:30:00 08:30:00 SANTIAGO barbosa [facility] 2021-08-21 2021-08-21 Travel 1.2.840.1 1.2.397.989 [id number] Univers 00:00:00 00:00:00 49400.1.1 350.1.13.10 ity of 3.104.2.7 4[place].7.3.698 [place] .3.361695 084.8 Medica l .8 [place] 2021-08-14 2021-08-14 Telephone East, 1.2.840.6 [id number] Univers 00:00:00 00:00:00 [place] 82720.1.1 ity of 3.104.2.7 [place] .3.152466 Medica l .8 [facility] 2021-08-13 2021-08-13 Telephone East, 1.2.840.9 [id number] Univers 00:00:00 00:00:00 [place] 19307.1.1 [facility] [place] 3.104.2.7 [place] .3.949747 [facility] l 8 Branch 2021-08-11 2021-08-11 Outpatient R [facility] [id number] Univers 08:00:00 08:00:00 [facility] 2021-08-05 2021-08-05 Inpatient EDUARDO LealCL OUTD [id number] [facility] 05:24:00 05:24:00 Mike 31 [facility] 2021-07-20 2021-07-20 Outpatient [facility] [id number] Univers 10:00:00 10:00:00 [facility] 2021-07-14 2021-07-14 Office Pankaj, UTP 6400 1.2.840.114 [id number] MS 08:45:00 09:34:01 Visit [address]hia [address] 350.1.13.58 Health 9.2.7.2.686 [id number] 1 2021-07-09 2021-07-09 Telephone Hematpour, UTP 6400 1.2.840.114 [id number] MS 00:00:00 00:00:[address] 350.1.13.58 Health 9.2.7.2.686 [id number] 1 2021-07-09 2021-07-09 Telephone [facility], UTP 6400 1.2.840.114 [id number] MS 00:00:00 00:00:[address] 350.1.13.58 Health 9.2.7.2.686 [id number] 1 2021-07-03 2021-07-03 Outpatient R [facility] [id number] Univers 08:00:00 08:00:[facility] 2021-06-17 2021-06-17 Inpatient EDUARDO LealLA INTE.02 [id number] [facility] 10:56:00 14:36:00 Mike 47 [facility] 2021-06-15 2021-06-15 Outpatient R SELF, [facility] [id number] Univers 10:15:00 11:07:21 GADIEL rodas [facility] 2021-06-15 2021-06-15 Outpatient R SELF, [facility] [id number] Univers 10:15:00 10:15:00 GADIEL rodas [facility] 2021-06-15 2021-06-15 Outpatient R SELF, [facility] [id number] Univers 10:15:00 10:15:00 GADIEL rodas [facility] 2021-06-15 2021-06-15 Orders Doctor 1.2.840.5 [id number] Univers 00:00:00 00:00:00 Only Unassigned, 45548.1.1 ity of [place] 3.104.2.7 [place] .3.093800 Medica l .8 Mission 2021-06-15 2021-06-15 Travel 1.2.840.1 1.2.705.441 [id number] Univers 00:00:00 00:00:00 31709.1.1 350.1.13.10 ity of 3.104.2.7 4.2.7.3.698 [place] .3.036843 084.8 Medica l .8 [place] 2021-06-11 2021-06-11 [facility] 1.2.976.960 [id number] Univers 00:00:00 00:00:00 [facility] 350.1.13.10 i ty of CL[place] 4[place] [id number] [facility] 089 [place] 2021-06-11 2021-06-11 Refill [facility], 1.2.840.5 [id number] Univers 00:00:00 00:00:00 [place] 71772.1.1 ity of 3.104.2.7 [place] .3.455746 Medica l .8 [facility] 2021-06-05 2021-06-05 Outpatient R [facility], [facility] [id number] Univers 09:00:00 09:00:00 SANTIAGO ity of [facility] 2021-06-02 2021-06-02 Telephone East, UNIVERSIT 1.2.840.114 [id number] Univers 00:00:00 00:00:00 Santiago Y HEALTH 350.1.13.10 i ty of [facility] 4.2.7.2.[place] [id number] [facility] 089 Branch 2021-06-02 2021-06-02 Telephone East, 1.2.840.5 [id number] Univers 00:00:00 00:00:00 [place] 96780.1.1 ity of 3.104.2.7 [place] .3.204447 Medica l .8 Branch 2021-05-29 2021-05-29 Telephone East, 1.2.840.2 [id number] [id number] Univers 00:00:00 00:00:00 [place] 40573.1.1 ity of 3.104.2.7 [place] .3.992129 Medica l .8 Branch 2021-05-29 2021-05-29 Telephone East, 1.2.840.2 [id number] [id number] Univers 00:00:00 00:00:00 Santiago 74326.1.1 ity of 3.104.2.7 [place] .3.886736 Medica l .8 [facility] 2021-05-25 2021-05-25 Outpatient R RODO, [facility] [id number] Univers 08:00:00 08:00:00 GADIEL vogel f [facility] 2021-04-29 2021-04-29 Outpatient Marika REEVES [facility] [id number] Univers 08:00:00 08:00:00 NIKOLAI ity of [facility] 2021-04-28 2021-04-28 Telephone [facility], UTP 6400 1.2.840.114 [id number] MS 00:00:00 00:00:[address] 350.1.13.58 Health 9.2.7.2.686 [id number] 1 2021-04-28 2021-04-28 Telephone Jailyn, 1.2.840.4 [id number] 21 [id number] Methodi 00:00:00 00:00:[address] 3.430.2.7 Hospit a .3.039475 l .8 2021-03-31 2021-03-31 Orders Carol Ann, 1.2.840.1 [id number] Methodi 00:00:00 00:00:00 Only Sarai Lieberman 66886.1.1 979 s t 3.430.2.7 Hospit a .3.809458 l .8 2021-03-30 2021-03-30 Outpatient R RODO, [facility] [id number] Univers 08:45:00 08:45:00 GADIEL rodas [facility] 2021-03-24 2021-03-24 Telephone Jailyn, 1.2.840.4 [id number] Methodi 00:00:00 00:00:[address] 3.430.2.7 Hospit a .3.372446 l .8 2021-02-13 2021-02-13 Telephone Ronald 1.2.840.5 [id number] [id number] Univers 00:00:00 00:00:00 Santiago 07842.1.1 ity of 3.104.2.7 [place] .3.508514 Medica l .[address] [place] [address] 2021-01-28 2021-01-28 [facility]patient [facility] [id number] Univers 08:45:00 09:37:00 NIKOLAI barbosa [facility] 2021-01-28 2021-01-28 Travel 1.2.840.1 1.2.021.286 [id number] [facility] 00:00:00 00:00:00 96668.1.1 350.1.13.10 ity of 3.104.2.7 4.[place].7.3.698 [place] .3.240340 084.8 Medica l .8 Mission 2021-01-19 2021-01-19 Telephone Prabhu 1.2.840.1 [id number] [id number] Methodi 00:00:00 00:00:[address] 3.430.2.7 Hospit a .3.048472 l .8 2021-01-04 2021-01-04 Dmitry Bass, 1.2.840.3 [id number] 696 Univers 00:00:00 00:00:00 (Out) Dagoberto H 87003.1.1 ity of 3.104.2.7 [place] .3.835345 Medica l .8 Branch 2021-01-04 2021-01-04 Dmitry Bass, 1.2.840.3 [id number] 696 Univers 00:00:00 00:00:00 (Out) Dagoberto H 37844.1.1 ity of 3.104.2.7 [place] .3.206508 Medica l .8 Branch 2021-01-03 2021-01-03 Dmitry Bass, 1.2.840.8 [id number] 790 Univers 00:00:00 00:00:00 (Out) Dagoberto H 79375.1.1 ity of 3.104.2.7 [place] .3.240332 Medica l .8 Branch 2021-01-03 2021-01-03 Dmitry Bass, 1.2.840.0 [id number] 790 Univers 00:00:00 00:00:00 (Out) Dagoberto H 86154.1.1 ity of 3.104.2.7 [place] .3.968175 Medica l .8 Branch 2021-01-02 2021-01-02 Outpatient R [facility] [id number] Univers 13:40:00 13:40:00 ity of [facility] 2021-01-02 2021-01-02 Laboratory [place] Franks 1.2.840.8 [id number] [id number] Univers 12:14:13 12:57:34 Only Lab, [place] 67987.1.1 ity of 3.104.2.7 [place] .3.632201 Medica l .8 Branch 2021-01-02 2021-01-02 Laboratory [place] Franks 1.2.840.6 [id number] [id number] Univers 12:14:13 12:57:34 Only Lab, [place] 29987.1.1 ity of 3.104.2.7 [place] .3.071840 Medica l .8 Branch 2021-01-02 2021-01-02 Travel 1.2.840.1 1.2.585.698 0024 2306 Univers 00:00:00 00:00:00 72118.1.1 350.1.13.10 ity of 3.104.2.7 4[place].3.698 [place] .3.665959 084.8 Medica l .8 Branch 2021-01-02 2021-01-02 Letter Doctor 1.2.840.8 [id number] 948 Univers 00:00:00 00:00:00 (Out) Unassigned, 72754.1.1 ity of [place] 3.104.2.7 [place] .3.550700 Medica l .8 Branch 2021-01-02 2021-01-02 Letter Doctor 1.2.840.1 [id number] 05627 946 Univers 00:00:00 00:00:00 (Out) Unassigned, 19034.1.1 ity of [place] 3.104.2.7 [place] .3.742960 Medica l .8 Branch 2021-01-02 2021-01-02 Travel 1.2.840.1 1.2.459.744 7608 2306 Univers 00:00:00 00:00:00 87862.1.1 350.1.13.10 ity of 3.104.2.7 4[place]7.3.698 [place] .3.567288 084.8 Medica l .8 Branch 2021-01-02 2021-01-02 Letter Doctor 1.2.840.0 [id number] 948 Univers 00:00:00 00:00:00 (Out) Unassigned, 73163.1.1 ity of [place] 3.104.2.7 [place] .3.926102 Medica l .8 Branch 2021-01-02 2021-01-02 Letter Doctor 1.2.840.0 [id number] 946 Univers 00:00:00 00:00:00 (Out) Unassigned, 76126.1.1 ity of [place] 3.104.2.7 [place] .3.716193 Medica l .8 Branch 2020-12-22 2020-12-22 Telephone [place], 1.2.840.5 [id number] [id number] Univers 00:00:00 00:00:00 Robbi R 58753.1.1 i ty of 3.104.2.7 [place] .3.030644 Medica l .8 Mission 2020-12-22 2020-12-22 Telephone [place], 1.2.840.0 [id number] 862 03255 Univers 00:00:00 00:00:00 Devina R 57506.1.1 i ty of 3.104.2.7 [place] .3.960280 Medica l .8 Mission 2020-12-12 2020-12-12 Office [facility], UTP 6400 1.2.840.114 12 [id number] MS 07:42:02 08:18:[address] 350.1.13.58 Health 9.2.7.2.686 [id number] 1 2020-12-12 2020-12-12 Office [place], UTP 6400 1.2.840.114 12 [id number] 07:42:02 08:18:50 [facility] 350.1.13.58 9.2.7.2.686 [id number] 1 2020-12-09 2020-12-09 Telephone [facility], 1.2.840.1 [id number] Methodi 00:00:00 00:00:00 Sarai M. 21779.1.1 316 s t 3.430.2.7 Hospit a .3.511442 l .8 2020-12-08 2020-12-08 [facility], 1.2.840.1 [id number] 2100 [id number] Methodi 12:35:54 23:59:00 Encounter Ray [address]97.1.[address] 3.430.2.7 Hospit a .3.312820 l .8 2020-12-08 2020-12-08 Lab Jailyn, 1.2.840.1 [id number] 88984 Methodi 17:25:00 17:30:[address] 3.430.2.7 Hospit a .3.419500 l .8 2020-12-08 2020-12-08 Office Jailyn, 1.2.840.1 [id number] 44598 Methodi 10:30:00 11:39:56 Visit Ray 94396.1.[address] 3.430.2.7 Hospit a .3.816094 l .8 2020-12-08 2020-12-08 Travel 1.2.840.1 1.2.624.607 8848 528135 Methodi 00:00:00 00:00:[address] 3.430.2.7 0.2.7.3.698 Ho spita .3.906665 084.8 l .8 2020-12-02 2020-12-02 Sales And Customer Relations Rep Santiago Cardenas 1.2.840.1 [id number] Univers 10:20:06 10:36:19 Visit [facility] 51458.1.1 ity of 3.104.2.7 [place] .3.505202 Medica l .8 Branch 2020-12-02 2020-12-02 Sales And Customer Relations Rep Santiago Cardenas 1.2.840.1 [id number] Univers 10:20:06 10:36:19 Visit [facility] 71392.1.1 ity of 3.104.2.7 [place] .3.178206 Medica l .8 Branch 2020-12-02 2020-12-02 Sales And Customer Relations Rep [facility] UNIVERSIT 1.2.840.114 8 [id number] 10:20:06 10:36:19 Visit [facility] 350.1.13.10 CLINICS 4.2.7.2.686 [id number] 316 2020-12-02 2020-12-02 Office Ronald, 1.2.840.3 [id number] 528 Univers 08:31:37 09:01:37 Visit Santiago 40236.1.1 ity of 3.104.2.7 [place] .3.774968 Medica l .8 Mission 2020-12-02 2020-12-02 [facility] [id number] Univers 09:00:00 09:00:00 SANTIAGO ity of [facility] 2020-11-25 2020-11-25 Office Devin, 1.2.840.0 [id number] 865 Univers 11:06:30 11:58:14 Visit Robbi Marika 77707.1.1 i ty of 3.104.2.7 [place] .3.303479 Medica l .[address] [place] [address] 2020-11-25 2020-11-25 Office Devin, 1.2.840.0 [id number] 865 Univers 11:06:30 11:58:14 Visit Devinaleshia Hairston 11477.1.1 i ty of 3.104.2.7 [place] .3.852839 Medica l .[address] [place] [address] 2020-11-25 2020-11-25 [facility] 1.2.840.114 [id number] 65 11:06:30 11:58:14 Visit Robbi Marika [employer] 350.1.13.10 [facility] 4.2.7.2.686 MATERNAL [id number] & CHILD [address] [place] [address] 2020-11-25 2020-11-25 Outpatient R [facility] [id number] Univers 11:00:00 11:00:00 ity of [facility] 2020-11-25 2020-11-25 Telephone Beltran, 1.2.840.3 [id number] 855 [id number] Univers 00:00:00 00:00:00 Robbi Marika 06973.1.1 i ty of 3.104.2.7 [place] .3.056518 Medica l .[address] [place] [address] 2020-11-25 2020-11-25 Refill Ronald, 1.2.840.9 [id number] 95434 592 Univers 00:00:00 00:00:00 Santiago 61602.1.1 ity of 3.104.2.7 [place] .3.693146 Medica l .8 Branch 2020-11-25 2020-11-25 Travel 1.2.840.1 1.2.108.896 7947 0247 Univers 00:00:00 00:00:00 96402.1.1 350.1.13.10 ity of 3.104.2.7 [place].3.698 [place] .3.679442 084.8 Medica l .8 Branch 2020-11-25 2020-11-25 Orders Doctor 1.2.840.9 [id number] 88470 064 Univers 00:00:00 00:00:00 Only Unassigned, 08999.1.1 ity of [place] 3.104.2.7 [place] .3.542816 Medica l .8 Branch 2020-11-25 2020-11-25 Telephone Beltran, 1.2.840.9 [id number] 855 67192 Univers 00:00:00 00:00:00 Robbi Hairston 15379.1.1 i ty of 3.104.2.7 [place] .3.610763 Medica l .8 Branch 2020-11-25 2020-11-25 Refill East, 1.2.840.6 [id number] 47778 592 Univers 00:00:00 00:00:00 Santiago 49582.1.1 ity of 3.104.2.7 [place] .3.684316 Medica l .8 Branch 2020-11-25 2020-11-25 Travel 1.2.840.1 1.2.041.443 2422 0247 Univers 00:00:00 00:00:00 04810.1.1 350.1.13.10 ity of 3.104.2.7 4.[place].7.3.698 [place] .3.249054 084.8 Medica l .8 Branch 2020-11-25 2020-11-25 Orders Doctor 1.2.840.5 [id number] 49667 064 Univers 00:00:00 00:00:00 Only Unassigned, 88487.1.1 ity of [place] 3.104.2.7 [place] .3.866696 Medica l .8 Mission 2020-11-25 2020-11-25 [facility] 1.2.914.182 9829 4592 00:00:00 00:00:00 [facility] 350.1.13.10 [facility] 4.2.7.2.686 [id number] 089 2020-11-25 2020-11-25 Telephone [facility] 1.2.280.040 6633 0821 00:00:00 00:00:00 Robbi Hairston [employer] 350.1.13.10 [facility] 4.2.7.2.686 MATERNAL [id number] & CHILD [address] [place] [address] 2020-11-14 2020-11-14 Abstract Clark, 1.2.840.1 [id number] 48553 69201 Methodi 00:00:00 00:00:[address] 3.430.2.7 Hospit a .3.763156 l .8 2020-11-14 2020-11-14 Telephone Clark 1.2.840.1 [id number] 2100 674643 Methodi 00:00:00 00:00:[address] 3.430.2.7 Hospit a .3.761311 l .8 2020-11-12 2020-11-12 Outpatient [facility] [id number] 323 Univers 08:30:00 08:30:00 SANTIAGO charlie [facility] 2020-11-07 2020-11-07 Telephone Agustina Ortiz 6400 1.2.840.11 4 [id number] [place] 00:00:00 00:00:[address] 350.1.13.58 Health 9.2.7.2.686 [id number] 1 2020-11-07 2020-11-07 Telephone KIMBERLEY Ortiz 6400 1.2.840.114 124 [id number] 00:00:00 00:00:[address] 350.1.13.58 9.2.7.2.686 [id number] 1 2020-10-31 2020-10-31 Office Hematpour, UTP 6400 1.2.840.114 12 [id number] [place] 07:54:00 09:45:[address] 350.1.13.58 Health 9.2.7.2.686 [id number] 1 2020-10-30 2020-10-30 Abstract Rody Maguire UTP 6400 1.2.840.1 14 [id number] [place] 00:00:00 00:00:[address] 350.1.13.58 Health 9.2.7.2.686 604.5429553 1 2020-10-29 2020-10-29 Refill East, 1.2.840.4 [id number] 400 Univers 00:00:00 00:00:00 Santiago 31460.1.1 ity of 3.104.2.7 [place] .3.814236 Medica l .8 Mission 2020-10-29 2020-10-29 Refill East, 1.2.840.1 [id number] 86668 400 Univers 00:00:00 00:00:00 Santiago 65879.1.1 ity of 3.104.2.7 [place] .3.843591 Medica l .8 Mission 2020-10-27 2020-10-27 Telephone Cadea, 1.2.840.0 [id number] 21 [id number] Methodi 00:00:00 00:00:[address] 3.430.2.7 Hospit a .3.999526 l .8 2020-10-24 2020-10-24 Telephone Rodas, 1.2.840.1 [id number] 2100 004598 Methodi 00:00:00 00:00:[address] 3.430.2.7 Hospit a .3.034976 l .8 2020-10-22 2020-10-22 Outpatient R SELF, [facility] [id number] 868 Univers 13:00:00 13:00:00 GADIEL rodas [facility] 2020-10-22 2020-10-22 Travel 1.2.840.1 1.2.636.489 7426 3839 Univers 00:00:00 00:00:00 65237.1.1 350.1.13.10 ity of 3.104.2.7 [place]7.3.698 [place] .3.068383 084.8 Medica l .8 Mission 2020-10-22 2020-10-22 Travel 1.2.840.1 1.2.322.528 3272 3839 Univers 00:00:00 00:00:00 92560.1.1 350.1.13.10 ity of 3.104.2.7 4.[place].7.3.698 [place] .3.555072 084.8 Medica l .8 Mission 2020-10-13 2020-10-13 Outpatient R [facility], [facility] [id number] Univers 08:45:00 08:45:00 GADIEL barbosa o f [facility] 2020-10-06 2020-10-12 Telemedici Cadea, 1.2.840.1 [id number] 21 [id number] Methodi 15:30:00 00:08:46 ne Ray 74935.1.[address] 3.430.2.7 Hospit a .3.103415 l .8 2020-09-30 2020-09-30 Telephone Cadea, 1.2.840.0 [id number] 21 [id number] Methodi 00:00:00 00:00:[address] 3.430.2.7 Hospit a .3.593181 l .8 2020-09-21 2020-09-21 Travel 1.2.840.1 1.2.714.224 9580 152671 Methodi 00:00:00 00:00:[address] 3.430.2.7 0.2.7.3.698 Ho spita .3.295984 084.8 l .8 2020-09-06 2020-09-06 [facility] 1.2.840.1 [id number] 46319 85560 Methodi 17:42:30 23:59:[address] 3.430.2.7 Hospit a .3.441991 l .8 2020-09-06 2020-09-06 [facility], 1.2.840.1 [id number] 2099 354975 Methodi 16:50:00 17:41:00 Encounter Ray 51698.1.[address] 3.430.2.7 Hospit a .3.997492 l .8 2020-09-05 2020-09-05 [facility], 1.2.840.1 [id number] 2099 247198 Methodi 09:17:00 19:45:00 Encounter Ray [address]33.1.[address] 3.430.2.7 Hospit a .3.848297 l .8 2020-09-05 2020-09-05 Surgery [facility], 1.2.840.1 [id number] 42383 70395 Methodi 11:30:00 13:15:[address] 3.430.2.7 Hospit a .3.577522 l .8 2020-09-05 2020-09-05 Anesthesia Remigio, 1.2.840.1 [id number] 921 [id number] Methodi 11:27:00 12:20:00 Event Kirit 37023.1.1 243 s t V. 3.430.2.7 Hospit a .3.663728 l .8 2020-09-05 2020-09-05 Travel 1.2.840.1 1.2.280.336 7434 432989 Methodi 00:00:00 00:00:[address] 3.430.2.7 0.2.7.3.698 Ho spita .3.428906 084.8 l .8 2020-09-04 2020-09-04 Telephone Carol Ann, 1.2.840.1 [id number] Methodi 00:00:00 00:00:00 Sarai Lieberman 61024.1.1 762 s t 3.430.2.7 Hospit a .3.155348 l .8 2020-09-02 2020-09-02 Telephone Carol Ann, 1.2.840.7 [id number] Methodi 00:00:00 00:00:00 Sarai Lieberman 17102.1.1 344 s t 3.430.2.7 Hospit a .3.687177 l .8 2020-08-29 2020-08-30 Bedded [facility] [id number] 275 [facility] 10:20:00 14:10:00 Outpatient r Marty 00 l [facility] 2020-08-29 2020-08-30 Outpatient HEM[facility], [facility] CAR 7500 [facility] 05:20:00 09:10:00 BEVERLY 2020-08-06 2020-08-06 Office East, 1.2.840.7 [id number] 416 Univers 08:03:23 09:17:49 Visit Santiago 62928.1.1 ity of 3.104.2.7 [place] .3.702133 Medica l .8 Mission 2020-08-06 2020-08-06 Outpatient R EAST, [facility] [id number] Univers 08:30:00 08:30:00 SANTIAGO barbosa of [facility] 2020-07-14 2020-07-14 Outpatient R SELF, [facility] [id number] Univers 09:30:00 09:30:00 GADIEL barbosa o f [facility] 2020-07-14 2020-07-14 Travel 1.2.840.1 1.2.859.342 3803 2575 Univers 00:00:00 00:00:00 60464.1.1 350.1.13.10 ity of 3.104.2.7 4.[place]7.3.698 [place] .3.731656 084.8 Medica l .8 Mission 2020-07-14 2020-07-14 Orders Doctor 1.2.840.3 [id number] 309 Univers 00:00:00 00:00:00 Only Unassigned, 99014.1.1 ity of [place] 3.104.2.7 [place] .3.738695 Medica l .8 Mission 2020-06-16 2020-06-16 Outpatient R SELF, [facility] [id number] Univers 08:00:00 08:00:00 GADIEL macielcharlie o f [facility] 2020-06-06 2020-06-06 Telephone East, 1.2.840.8 [id number] 809 12198 Univers 00:00:00 00:00:00 Santiago 87444.1.1 ity of 3.104.2.7 [place] .3.308421 Medica l .8 Mission 2020-06-04 2020-06-04 Sales And Customer Relations Rep Santiago Cardenas 1.2.840.1 [id number] Univers 09:31:58 09:40:12 Visit [facility] 12519.1.1 ity of 3.104.2.7 [place] .3.727559 Medica l .8 Mission 2020-06-04 2020-06-04 Office East, [facility] 1.2.797.443 7422 9729 Univers 08:13:41 09:28:25 Visit Santiago [facility] 350.1.13.10 i ty of CL[place] 4[place]2.7.2.[place] 142.8028874 [facility] porfirio 089 Mission 2020-06-04 2020-06-04 Outpatient R EAST, [facility] [id number] Univers 08:30:00 08:30:00 SANTIAGO barbosa of [facility] 2020-06-04 2020-06-04 Orders Doctor 1.2.840.4 [id number] 079 Univers 00:00:00 00:00:00 Only Unassigned, 91099.1.1 ity of [place] 3.104.2.7 [place] .3.617392 Medica l .8 Mission 2020-05-19 2020-05-19 Telephone East, 1.2.840.2 [id number] 804 [id number] Univers 00:00:00 00:00:00 Santiago 49104.1.1 ity of 3.104.2.7 [place] .3.879609 Medica l .8 Mission 2020-04-24 2020-04-24 Telephone East, 1.2.840.2 [id number] 799 88783 Univers 00:00:00 00:00:00 Santiago 12350.1.1 ity of 3.104.2.7 [place] .3.559132 Medica l .8 Mission 2020-04-14 2020-04-14 Outpatient R EAST, [facility] [id number] Univers 09:00:00 09:00:00 SANTIAGO ity of [facility] 2020-04-14 2020-04-14 Telephone East, 1.2.840.5 [id number] 797 [id number] Univers 00:00:00 00:00:00 Santiago 60388.1.1 ity of 3.104.2.7 [place] .3.898099 Medica l .8 Mission 2020-03-31 2020-03-31 Outpatient R EAST, [facility] [id number] Univers 08:30:00 08:30:00 SANTIAGO ity [facility] 2020-03-03 2020-03-03 Outpatient R SELF, [facility] [id number] Univers 08:00:00 08:00:00 GADIEL barbosa o f [facility] 2020-03-03 2020-03-03 Outpatient R SELF, [facility] [id number] Univers 08:00:00 08:00:00 GADIEL maciely o f [facility] 2020-03-03 2020-03-03 Travel 1.2.840.1 1.2.512.744 4534 5480 Univers 00:00:00 00:00:00 15809.1.1 350.1.13.10 ity of 3.104.2.7 [place]7.3.698 [place] .3.570207 084.8 Medica l .8 Mission 2020-02-06 2020-02-06 Telephone East, 1.2.840.5 [id number] 781 [id number] Univers 00:00:00 00:00:00 Santigao 50139.1.1 ity of 3.104.2.7 [place] .3.062132 Medica l .8 Mission 2020-01-26 2020-01-26 Emergency Caridad, 1.2.840.3 [id number] 779 [id number] Univers 10:03:00 13:05:00 Cynise 41792.1.1 ity of 3.104.2.7 [place] .3.348141 Medica l .8 Mission 2020-01-26 2020-01-26 Travel 1.2.840.1 1.2.667.620 3249 0120 Univers 00:00:00 00:00:00 66342.1.1 350.1.13.10 ity of 3.104.2.7 [place]7.3.698 [place] .3.459758 084.8 Medica l .8 Mission 2020-01-25 2020-01-25 Outpatient R EAST, [facility] [id number] Univers 08:30:00 08:30:00 SANTIAGO itcharlie [facility] 2020-01-25 2020-01-25 Telemedici East, 1.2.840.5 [id number] Univers 07:36:49 08:06:49 ne Visit Santiago 90463.1.1 ity of 3.104.2.7 [place] .3.997961 Medica l .8 Mission 2020-01-16 2020-01-16 Outpatient R EAST, [facility] [id number] Univers 08:00:00 08:00:00 SANTIAGO itcharlie [facility] 2020-01-16 2020-01-16 Telephone East, 1.2.840.5 [id number] Univers 00:00:00 00:00:00 Santiago 72236.1.1 ity of 3.104.2.7 [place] .3.075643 Medica l .8 Mission 2020-01-14 2020-01-14 Outpatient R SELF, [facility] [id number] Univers 08:00:00 08:00:00 GADIEL vogel f [facility] 2019-12-31 2019-12-31 Outpatient R SELF, [facility] [id number] Univers 08:45:00 08:45:00 GADIEL barbosa o f [facility] 2019-10-17 2019-10-17 Outpatient R EAST, [facility] [id number] Univers 08:30:00 08:30:00 SANTIAGO ity [facility] 2019-10-12 2019-10-12 Outpatient R EAST, [facility] [id number] Univers 13:00:00 13:00:00 SANTIAGO ity [facility] 2019-10-12 2019-10-12 Telemedici East, 1.2.840.1 [id number] Univers 07:38:30 08:08:30 ne Visit Santiago 02267.1.1 ity of 3.104.2.7 [place] .3.381401 Medica l .8 Mission 2019-10-08 2019-10-08 [facility] [id number] Univers 10:15:00 10:15:00 GADIEL ity o f [facility] 2019-10-03 2019-10-03 Case Assman, 1.2.840.3 [id number] Univers 00:00:00 00:00:00 Management Michael Corbin 14550.1.1 i ty of 3.104.2.7 [place] .3.049521 Medica l .8 Mission 2019-09-27 2019-09-27 Telephone East, 1.2.840.4 [id number] 755 [id number] Univers 00:00:00 00:00:00 Santiago 44998.1.1 ity of 3.104.2.7 [place] .3.479498 Medica l .8 Mission 2019-09-04 2019-09-04 Refill Ronald, 1.2.840.1 [id number] Univers 00:00:00 00:00:00 Santiago 51530.1.1 ity of 3.104.2.7 [place] .3.979774 Medica l .8 Mission 2019-07-24 2019-07-24 Outpatient R [facility] [id number] Univers 08:30:00 08:30:00 SANTIAGO ity [facility] 2019-07-17 2019-07-17 [facility] [id number] Univers 10:00:00 10:00:00 SANTIAGO ity [facility] 2019-06-15 2019-06-15 Telephone East, 1.2.840.6 [id number] [id number] Univers 00:00:00 00:00:00 Santiago 22347.1.1 ity of 3.104.2.7 [place] .3.645382 Medica l .8 Mission 2019-06-13 2019-06-13 Telephone Team, [facility] 1.2.840.1 [id number] Univers 00:00:00 00:00:00 Health 84868.1.1 ity [place].2.7 [place] .3.161783 Medica l .8 Branch 2019-05-10 2019-05-10 Refill Ronald, 1.2.840.3 [id number] 022 Univers 00:00:00 00:00:00 Santiago 80720.1.1 ity of 3.104.2.7 [place] .3.976409 Medica l .8 Mission 2019-05-09 2019-05-09 Refill Ronald, 1.2.840.2 [id number] Univers 00:00:00 00:00:00 Santiago 45489.1.1 ity of 3.104.2.7 [place] .3.220718 Medica l .8 Mission 2019-04-30 2019-04-30 Outpatient R SELF, [facility] [id number] Univers 10:15:00 10:33:05 GADIEL vogel f [facility] 2019-04-18 2019-04-18 Sales And Customer Relations Rep Santiago Cardenas 1.2.840.1 [id number] Univers 10:00:39 10:44:31 Visit [facility] 11070.1.1 ity of 3.104.2.7 [place] .3.445450 Medica l .8 Mission 2019-04-18 2019-04-18 Outpatient R RONALD [facility] [id number] Univers 10:00:00 10:44:31 SANTIAGO ity of [facility] 2019-04-18 2019-04-18 Office Ronald, 1.2.840.3 [id number] 005 Univers 08:27:44 09:53:27 Visit Santiago 33608.1.1 ity of 3.104.2.7 [place] .3.549183 Medica l .8 Mission 2019-04-18 2019-04-18 Orders Doctor 1.2.840.6 [id number] Univers 00:00:00 00:00:00 Only Unassigned, 45000.1.1 ity of [place] 3.104.2.7 [place] .3.793148 Medica l .8 Mission 2019-04-11 2019-04-11 Refill Ronald, 1.2.840.2 [id number] 033 Univers 00:00:00 00:00:00 Santiago 98829.1.1 ity of 3.104.2.7 [place] .3.052258 Medica l .8 Mission 2019-04-09 2019-04-09 Refill Ronald, 1.2.840.0 [id number] Univers 00:00:00 00:00:00 Santiago 17687.1.1 ity of 3.104.2.7 [place] .3.419743 Medica l .8 Mission 2019-04-03 2019-04-03 Telephone Team, [facility] 1.2.840.0 [id number] Univers 00:00:00 00:00:00 Health 82433.1.1 ity [place].2.7 [place] .3.807151 Medica l .8 Mission 2019-03-27 2019-03-27 Telephone Self, 1.2.840.5 [id number] 723 [id number] Univers 00:00:00 00:00:00 Gadiel 86456.1.1 ity of 3.104.2.7 [place] .3.128675 Medica l .8 Mission 2019-01-17 2019-01-17 Office Ronald, 1.2.840.6 [id number] Univers 07:37:21 10:32:51 Visit Santiago 73535.1.1 ity of 3.104.2.7 [place] .3.673621 Medica l .8 Mission 2019-01-04 2019-01-12 Office Eveline Hansen 1.2.840.6 [id number] Univers 11:19:32 11:08:05 Visit Mariela 74173.1.1 ity of 3.104.2.7 [place] .3.299346 Medica l .8 Mission 2019-01-10 2019-01-10 Telephone Giivanna, 1.2.840.7 [id number] 709 43797 Univers 00:00:00 00:00:00 Eladio Inman 71566.1.1 ity of 3.104.2.7 [place] .3.452854 Medica l .8 Mission 2018-12-18 2018-12-18 Office Geraldine, 1.2.840.2 [id number] Univers 08:48:45 09:13:43 Visit Leyda 46722.1.1 it y of 3.104.2.7 [place] .3.192006 Medica l .8 Mission 2018-10-30 2018-10-30 Telephone East, 1.2.840.5 [id number] [id number] Univers 00:00:00 00:00:00 Santiago 40792.1.1 ity of 3.104.2.7 [place] .3.306091 Medica l .8 Mission 2018-10-23 2018-10-23 Orders Doctor 1.2.840.7 [id number] Univers 00:00:00 00:00:00 Only Unassigned, 07851.1.1 ity of [place] 3.104.2.7 [place] .3.746934 Medica l .8 Mission 2018-10-23 2018-10-23 Nurse Selvin, 1.2.840.9 [id number] Univers 00:00:00 00:00:00 Triage Stefanie 00967.1.1 ity of 3.104.2.7 [place] .3.094015 Medica l .8 Mission 2018-10-23 2018-10-23 Telephone Self, 1.2.840.2 [id number] [id number] Univers 00:00:00 00:00:00 Gadiel 89388.1.1 ity of 3.104.2.7 [place] .3.785169 Medica l .8 Mission 2018-10-20 2018-10-20 Telephone Self, 1.2.840.3 [id number] 695 [id number] Univers 00:00:00 00:00:00 Gadiel 65790.1.1 ity of 3.104.2.7 [place] .3.895599 Medica l .8 Mission Results Test Description Test Time Test Comments Results Result Comments Source COMP. METABOLIC PANEL (44371) 2022-05-06 22:42:55 Test Item Value Reference Range Interpretation Comme nts NA (test code = 8537057248) 137 mmol/L 135-145 K (test code = 8254563521) 3.2 mmol/L 3.5-5.0 L CL (test code = 3908996456) 100 mmol/L 98-108 CO2 TOTAL (test code = 0397065558) 23 mmol/L 23-31 AGAP (test code = 1110351590) 2-16 BUN (test code = 5214796889) 41 mg/dL 7-23 H GLUCOSE (test code = 5720355395) 98 mg/dL 70-110 CREATININE (test code = 1.55 mg/dL 0.50-1.04 H 0333206920) TOTAL BILI (test code = 0.8 mg/dL 0.1-1.8 7186953674) CALCIUM (test code = 3043466730) 8.3 mg/dL 8.6-10.6 L T PROTEIN (test code = 6338788867) 6.9 g/dL 6.3-8.2 ALBUMIN (test code = 0966328117) 3.9 g/dL 3.5-5.0 ALK PHOS (test code = 0893000258) 89 U/L 34-122 ALTv (test code = 1742-6) 101 U/L 5-35 H AST(SGOT) (test code = 1353771273) 203 U/L 13-40 H eGFR (test code = 1625191248) mL/min/1.73m2 KYLE (test code = KYLE) Association [...] tests). Lab Interpretation (test code = Abnormal 24012-7) [facility] WITH [id number] 22:33:52 Test Item Value Reference Range Interpretation Comments WBC (test code = See_Comment L [Automated 5090-2) message] The sy stem which generated this result transmitted reference range : 4.30 - 11.10 10*3/?L. The reference range was not used to interpret this result as normal/abnormal . RBC (test code = See_Comment [Automated 859-8) message] The sy stem which generated this [...] RDW-SD (test code = 46.3 fL 39.0-49.9 31361-8) RDW-CV (test code = 13.5 % 12.0-15.5 788-0) PLT (test code = See_Comment L [Automated 777-3) message] The sy stem which generated this result transmitted reference range : 166 - 358 10*3/ ?L. The reference r abbey was not used to interpret this result as normal/abnormal . MPV (test code = 9.5 fL 9.5-12.9 89954-7) NRBC/100 WBC (test See_Comment [Automat ed code = 7754493586) message] The system which generated this result transmitted reference range : 0.0 - 10.0 /100 WBCs. The refer ence range was not u sed to interpret th is result as normal/abnormal . NRBC x10^3 (test code See_Comment [Auto mated = 6281947729) message] The s ystem which generated this result transmitted reference range : 10*3/?L. The reference range was not used to interpret this result as normal/abnormal . GRAN MAT (NEUT) % 58.3 % (test code = 770-8) IMM GRAN % (test code 0.80 % = 4015718255) LYMPH % (test code = 28.1 % 736-9) MONO % (test code = 12.0 % 5905-5) EOS % (test code = 0.5 % 713-8) BASO % (test code = 0.3 % 706-2) GRAN MAT x10^3(ANC) 2.29 10*3/uL 1.88-7.09 (test code = 9078805205) IMM GRAN x10^3 (test 0.03 10*3/uL 0.00-0.06 code = 7042322069) LYMPH x10^3 (test code 1.10 10*3/uL 1.32-3.29 L = 731-0) MONO x10^3 (test code 0.47 10*3/uL 0.33-0.92 = 742-7) EOS x10^3 (test code = 0.03-0.39 L 711-2) BASO x10^3 (test code 0.01-0.07 = 704-7) Lab Interpretation Abnormal (test code = 93166-4) [facility] METABOLIC PANEL (NA, K, CL, CO2, GLUCOSE, BUN, CREATININE, CA)2022-04-22 21:43:42 Test Item Value Reference Range Interpretation Comments NA (test code = 142 mmol/L 135-145 6373164191) K (test code = 3.5 mmol/L 3.5-5.0 3320376813) CL (test code = 106 mmol/L 98-108 7361927900) CO2 TOTAL (test code = 26 mmol/L 23-31 6400144533) AGAP (test code = 2-16 9397234723) BUN (test code = 29 mg/dL 7-23 H 8674406487) GLUCOSE (test code = 84 mg/dL 70-110 4588821110) CREATININE (test code = 1.16 mg/dL 0.50-1.04 H 9689447301) CALCIUM (test code = 8.2 mg/dL 8.6-10.6 L 3320673521) eGFR (test code = mL/min/1.73m2 3016814237) KYLE (test code = KYLE) Association of [...] tests). Lab Interpretation Abnormal (test code = 83698-7) [facility] WITH [id number] 21:33:01 Test Item Value Reference Range Interpretation [...] (test code = 50.7 fL 39.0-49.9 H 61038-8) RDW-CV (test code = 14.6 % 12.0-15.5 788-0) PLT (test code = See_Comment L [Automated 777-3) message] The sy stem which generated this result transmitted reference range : 166 - 358 10*3/ ?L. The reference r abbey was not used to interpret this result as normal/abnormal . MPV (test code = 8.8 fL 9.5-12.9 L 00014-3) NRBC/100 WBC (test See_Comment [Automat ed code = 9808192517) message] The system which generated this result transmitted reference range : 0.0 - 10.0 /100 WBCs. The refer ence range was not u sed to interpret th is result as normal/abnormal . NRBC x10^3 (test code See_Comment [Auto mated = 8153200598) message] The s ystem which generated this result transmitted reference range : 10*3/?L. The reference range was not used to interpret this result as normal/abnormal . GRAN MAT (NEUT) % 70.9 % (test code = 770-8) IMM GRAN % (test code 0.50 % = 2848571437) LYMPH % (test code = 17.4 % 736-9) MONO % (test code = 9.0 % 5905-5) EOS % (test code = 1.7 % 713-8) BASO % (test code = 0.5 % 706-2) GRAN MAT x10^3(ANC) 4.60 10*3/uL 1.88-7.09 (test code = 9662475103) IMM GRAN x10^3 (test 0.03 10*3/uL 0.00-0.06 code = 0220390863) LYMPH x10^3 (test code 1.13 10*3/uL 1.32-3.29 L = 731-0) MONO x10^3 (test code 0.58 10*3/uL 0.33-0.92 = 742-7) EOS x10^3 (test code = 0.11 10*3/uL 0.03-0.39 711-2) BASO x10^3 (test code 0.03 10*3/uL 0.01-0.07 = 704-7) Lab Interpretation Abnormal (test code = 55104-7) [id number] 06:01:07 Test Item Value Reference Range Interpretation Comments Blood Culture-Aerobic No organisms No growth Previo us (test code = 57893-7) isolated prelim inary verified result was Culture [...] Culture-Anaerobic isolated preliminar y (test code = 83734-0) verifi ed result was Culture In Progress [...] CDT Lab Interpretation Normal (test code = 86565-0) [facility] CULTURE [id number] 06:01:07 Test Item Value Reference Range Interpretation Comments Blood Culture-Aerobic No organisms No growth Previo us (test code = 14073-3) isolated prelim inary verified result was Culture [...] Culture-Anaerobic isolated preliminar y (test code = 89177-8) verifi ed result was Culture In Progress [...] CDT Lab Interpretation Normal (test code = 16765-5) [facility] CULTURE [id number] 06:01:07 Test Item Value Reference Range Interpretation Comments Blood Culture-Aerobic No organisms No growth Previo us (test code = 39791-2) isolated prelim inary verified result was Culture [...] Culture-Anaerobic isolated preliminar y (test code = 43166-0) verifi ed result was Culture In Progress [...] CDT Lab Interpretation Normal (test code = 73246-1) [facility] [id number] 10:49:10 Test Item Value Reference Range Interpretation Comments NT-proBNP (test code 2660 pg/mL See_Comment H [Autom ated = 7681049017) message] The system which generated this result transmitted reference range : <=125. The reference range was not used to interpret this result as normal/abnormal . KYLE (test code = KYLE) Biotin has been reported to cause a negative bias, interpret results relative to patient's use of biotin. Lab Interpretation Abnormal (test code = 57848-0) [facility] [id number] 10:49:10 Test Item Value Reference Range Interpretation Comments NT-proBNP (test code 2660 pg/mL See_Comment H [Autom ated = 4874182182) message] The system which generated this result transmitted reference range : <=125. The reference range was not used to interpret this result as normal/abnormal . KYLE (test code = KYLE) Biotin has been reported to cause a negative bias, interpret results relative to patient's use of biotin. Lab Interpretation Abnormal (test code = 28995-0) [facility] (NA, K, CL, CO2, GLUCOSE, BUN, CREATININE, CA)2022-02-15 10:44:07 Test Item Value Reference Range Interpretation Comments NA (test code = 134 mmol/L 135-145 L 8498789010) K (test code = 3.2 mmol/L 3.5-5 L 5913498161) CL (test code = 98 mmol/L 98-108 6907784365) CO2 TOTAL (test code = 27 mmol/L 23-31 9503592617) AGAP (test code = 2-16 9171208064) BUN (test code = 19 mg/dL 7-23 5523579144) GLUCOSE (test code = 102 mg/dL 70-110 8940579363) CREATININE (test code = 0.95 mg/dL 0.5-1.04 7709463166) CALCIUM (test code = 8.5 mg/dL 8.6-10.6 L 5031498089) eGFR (test code = mL/min/1.73m2 5381183374) KYLE (test code = KYLE) Association of [...] tests). Lab Interpretation Abnormal (test code = 17958-0) [facility]2022-09-26 10:44:07 Test Item Value Reference Range Interpretation Comments MAGNESIUM (test code = 8224581619) 1.8 mg/dL 1.7-2.4 Lab Interpretation (test code = Normal 43597-4) [facility]07 Test Item Value Reference Range Interpretation Comments MAGNESIUM (test code = 2769987987) 1.8 mg/dL 1.7-2.4 Lab Interpretation (test code = Normal 16091-6) [facility] METABOLIC PANEL (NA, K, CL, CO2, GLUCOSE, BUN, CREATININE, CA)2022-02-15 10:44:07 Test Item Value Reference Range Interpretation Comments NA (test code = 134 mmol/L 135-145 L 2196608755) K (test code = 3.2 mmol/L 3.5-5.0 L 6654206132) CL (test code = 98 mmol/L 98-108 7147625800) CO2 TOTAL (test code = 27 mmol/L 23-31 9658111988) AGAP (test code = 2-16 3937999788) BUN (test code = 19 mg/dL 7-23 1681481275) GLUCOSE (test code = 102 mg/dL 70-110 9016478868) CREATININE (test code = 0.95 mg/dL 0.50-1.04 5699530063) CALCIUM (test code = 8.5 mg/dL 8.6-10.6 L 8048909595) eGFR (test code = mL/min/1.73m2 3837942235) KYLE (test code = KYLE) Association of [...] tests). Lab Interpretation Abnormal (test code = 30286-3) [facility] WITH [id number] 10:12:06 Test Item Value Reference Range Interpretation [...] RDW-SD (test code = 47.8 fL 39-49.9 62173-5) RDW-CV (test code = 15.2 % 12-15.5 788-0) PLT (test code = See_Comment L [Automated 777-3) message] The sy stem which generated this result transmitted reference range : 166 - 358 10*3/ ?L. The reference r abbey was not used to interpret this result as normal/abnormal . MPV (test code = 8.9 fL 9.5-12.9 L 09823-6) NRBC/100 WBC (test See_Comment [Automat ed code = 3969274190) message] The system which generated this result transmitted reference range : 0.0 - 10.0 /100 WBCs. The refer ence range was not u sed to interpret th is result as normal/abnormal . NRBC x10^3 (test code See_Comment [Auto mated = 9976265300) message] The s ystem which generated this result transmitted reference range : 10*3/?L. The reference range was not used to interpret this result as normal/abnormal . GRAN MAT (NEUT) % 65.9 % (test code = 770-8) IMM GRAN % (test code 0.30 % = 7091390275) LYMPH % (test code = 21.0 % 736-9) MONO % (test code = 10.1 % 5905-5) EOS % (test code = 2.4 % 713-8) BASO % (test code = 0.3 % 706-2) GRAN MAT x10^3(ANC) 2.49 10*3/uL 1.88-7.09 (test code = 4226108699) IMM GRAN x10^3 (test 0-0.06 code = 4178420219) LYMPH x10^3 (test code 0.79 10*3/uL 1.32-3.29 L = 731-0) MONO x10^3 (test code 0.38 10*3/uL 0.33-0.92 = 742-7) EOS x10^3 (test code = 0.09 10*3/uL 0.03-0.39 711-2) BASO x10^3 (test code 0.01-0.07 = 704-7) Lab Interpretation Abnormal (test code = 07691-5) [facility] WITH [id number] 10:12:06 Test Item Value Reference Range Interpretation [...] RDW-SD (test code = 47.8 fL 39.0-49.9 47725-5) RDW-CV (test code = 15.2 % 12.0-15.5 788-0) PLT (test code = See_Comment L [Automated 777-3) message] The sy stem which generated this result transmitted reference range : 166 - 358 10*3/ ?L. The reference r abbey was not used to interpret this result as normal/abnormal . MPV (test code = 8.9 fL 9.5-12.9 L 64895-5) NRBC/100 WBC (test See_Comment [Automat ed code = 7711303957) message] The system which generated this result transmitted reference range : 0.0 - 10.0 /100 WBCs. The refer ence range was not u sed to interpret th is result as normal/abnormal . NRBC x10^3 (test code See_Comment [Auto mated = 2909025960) message] The s ystem which generated this result transmitted reference range : 10*3/?L. The reference range was not used to interpret this result as normal/abnormal . GRAN MAT (NEUT) % 65.9 % (test code = 770-8) IMM GRAN % (test code 0.30 % = 1767624060) LYMPH % (test code = 21.0 % 736-9) MONO % (test code = 10.1 % 5905-5) EOS % (test code = 2.4 % 713-8) BASO % (test code = 0.3 % 706-2) GRAN MAT x10^3(ANC) 2.49 10*3/uL 1.88-7.09 (test code = 4062022065) IMM GRAN x10^3 (test 0.00-0.06 code = 2491583325) LYMPH x10^3 (test code 0.79 10*3/uL 1.32-3.29 L = 731-0) MONO x10^3 (test code 0.38 10*3/uL 0.33-0.92 = 742-7) EOS x10^3 (test code = 0.09 10*3/uL 0.03-0.39 711-2) BASO x10^3 (test code 0.01-0.07 = 704-7) Lab Interpretation Abnormal (test code = 05427-7) [facility] WITH [id number] 11:18:28 Test Item Value Reference Range Interpretation [...] RDW-SD (test code = 49.5 fL 39-49.9 51900-8) RDW-CV (test code = 15.5 % 12-15.5 788-0) PLT (test code = See_Comment L [Automated 777-3) message] The sy stem which generated this result transmitted reference range : 166 - 358 10*3/ ?L. The reference r abbey was not used to interpret this result as normal/abnormal . MPV (test code = 11.4 fL 9.5-12.9 95103-8) IPF % (test code = 8.7 % 1.3-7.7 H Platelet count 4479458281) measured by fluorescence method. NRBC/100 WBC (test See_Comment [Automat ed code = 8635824698) message] The system which generated this result transmitted reference range : 0.0 - 10.0 /100 WBCs. The refer ence range was not u sed to interpret th is result as normal/abnormal . NRBC x10^3 (test code See_Comment [Auto mated = 0029671245) message] The s ystem which generated this result transmitted reference range : 10*3/?L. The reference range was not used to interpret this result as normal/abnormal . GRAN MAT (NEUT) % 62.0 % (test code = 770-8) IMM GRAN % (test code 0.80 % = 2785794375) LYMPH % (test code = 22.2 % 736-9) MONO % (test code = 9.6 % 5905-5) EOS % (test code = 5.1 % 713-8) BASO % (test code = 0.3 % 706-2) GRAN MAT x10^3(ANC) 2.21 10*3/uL 1.88-7.09 (test code = 2745272672) IMM GRAN x10^3 (test 0.03 10*3/uL 0-0.06 code = 9556062333) LYMPH x10^3 (test code 0.79 10*3/uL 1.32-3.29 L = 731-0) MONO x10^3 (test code 0.34 10*3/uL 0.33-0.92 = 742-7) EOS x10^3 (test code = 0.18 10*3/uL 0.03-0.39 711-2) BASO x10^3 (test code 0.01-0.07 = 704-7) POLYCHROMASIA (test 2+ See_Comment [Automa arpit code = 46092-9) message] The system which generated this result [...] . Lab Interpretation Abnormal (test code = 38448-7) [facility] METABOLIC PANEL (NA, K, CL, CO2, GLUCOSE, BUN, CREATININE, CA)2022-02-13 10:39:07 Test Item Value Reference Range Interpretation Comments NA (test code = 136 mmol/L 135-145 1844836578) K (test code = 4.1 mmol/L 3.5-5 8170479862) CL (test code = 102 mmol/L 98-108 1817939502) CO2 TOTAL (test code = 27 mmol/L 23-31 0395142021) AGAP (test code = 2-16 1956965816) BUN (test code = 22 mg/dL 7-23 2670864335) GLUCOSE (test code = 94 mg/dL 70-110 9006378812) CREATININE (test code = 0.94 mg/dL 0.5-1.04 3733514476) CALCIUM (test code = 8.1 mg/dL 8.6-10.6 L 1509846505) eGFR (test code = mL/min/1.73m2 9034829311) KYLE (test code = KYLE) Association of [...] tests). Lab Interpretation Abnormal (test code = 44719-6) [facility]2022-02-12 01:50:10 Test Item Value Reference Range Interpretation Comments Height (test code = in 9966609664) Weight (test code = lbs 9126822756) Systolic BP (test code mmHg = 1100615513) Diastolic BP (test code mmHg = 4453793458) Heart Rate (test code = bpm 0859344363) BSA (test code = 1.85 m2 6604056690) IVS (test code = 1.22 cm 0785614915) Interventricular Septum 1.22 cm Diastolic Thickness by 2D (test code = 6358895) LVIDD (test code = 5.00 cm 4640643943) Left Ventricular End 117.9 mL Diastolic Volume by Teichholz Method (test code = 9717692) LVPWD (test code = 1.22 cm 2784694337) PW (test code = 1.22 cm 0.6-1.5 1888909325) EF(Teich) (test code = 74.60 % 0009789725) LVIDS (test code = 2.80 cm 5211033802) Left Ventricular End 29.9 mL Systolic Volume by Teichholz Method (test code = 9844517) FS (test code = 44 % 0918107692) EF - 2D (test code = 74.60 % 61110126) LVOT diameter (test 2.16 cm code = 4979506801) LVOT area (test code = 3.70 cm2 6069592364) Ao root diam (test code 3.40 cm = 2002870143) Aortic root (test code 3.4 cm = 6736153109) Ao root annulus (test 3.4 cm code = 0626767208) LA size (test code = 3.4 cm 7878863004) TR Peak Spencer (test code 330.0 cm/s = 5067693845) Triscuspid Valve mmHg Regurgitation Peak Gradient (test code = 2086870057) PV REGURGITATION PEAK mmHg GRADIENT (test code = 3347884547) PI dec slope (test code 137.20 cm/s2 = 8708387868) LAV(MOD-sp4) (test code 102.90 mL = 6985282532) MV Peak E Spencer (test 84.1 cm/s code = 3840023407) MV Peak A Spencer (test 40.1 cm/s code = 3703334674) E/A ratio (test code = ratio 0737467749) MV valve area p 1/2 3.70 cm2 method (test code = 2929362179) MV dec slope (test code 413.00 cm/s2 = 6638115305) MV P1/2t max spencer (test 83.70 cm/s code = 9477747668) MV Prop V (test code = 41.80 cm/s 8270775493) Tapse (test code = 1.83 cm 5641620021) LVOT stroke volume 96.90 cm3 (test code = 5787698912) LVOT peak spencer (test 125.5 cm/s code = 7316586874) LVOT mn grad (test code mmHg = 1413285434) AV LVOT peak gradient mmHg (test code = 4656807621) LVOT peak VTI (test 26.4 cm code = 3924439135) LV V1 mean (test code = 78.10 cm/s 0029101530) Aortic valve mean 103.7 cm/s velocity (test code = 8727761699) Ao peak spencer (test code 165.6 cm/s = 9945884345) Ao VTI (test code = 37.2 cm 7957919815) AV area by cont VTI 2.6 cm2 (test code = 1179055872) AV area peak spencer (test 2.8 cm2 code = 6909665362) Ao max PG (test code = 11.00 mm[Hg] 5926998813) AV peak gradient (test mmHg code = 9150796374) AV valve area (test 2.60 cm2 code = 5049829464) AV mean gradient (test mmHg code = 2683883146) LA Volume Index (BP) 55.2 mL/m2 (test code = 8876128981) LA volume (BP) (test 102.1 mL code = 4904365797) LAV(MOD-sp2) (test code 86.10 mL = 2255020082) A2C EF (test code = 61.20 % 8850374609) EF(sp2-el) (test code = 61.60 % 1171923925) SV(MOD-sp2) (test code 47.10 mL = 6101081376) LV Diastolic Volume 70.7 mL (BP) (test code = 3025471763) A4C EF (test code = 53.00 % 0869725369) EF(MOD-bp) (test code = 56.70 % 0822106259) EF(sp4-el) (test code = 53.90 % 1511906697) LV Systolic Volume (BP) 30.6 mL (test code = 4792012047) SV(MOD-bp) (test code = 40.10 mL 7248764546) SV(MOD-sp4) (test code 32.40 mL = 0545044931) SV(sp4-el) (test code = 33.10 mL 4924844390) EF (test code = 3767858244) Left Ventricular Stroke 40.1 mL Volume by 2-D Biplane-MOD (test code = 2878503) LV Diastolic Volume 38.2 mL/m2 Index (BP) (test code = 5905744105) LV Systolic Volume 16.5 mL/m2 Index (BP) (test code = 5630570843) Radiology Study observation (narrative) (test code = 99765-3) KYLE (test code = KYLE) ?Left?Ventricle: Left [...] normal. [facility] [id number] 05:45:01 Test Item Value Reference Interpretation Comments Range TROPONIN I (test See_Comment [Automated code = 3264290400) message] The system which generated this result [...] biotin. Lab Interpretation Normal (test code = 19343-9) [facility] [id number] 05:41:40 Test Item Value Reference Range Interpretation Comments NT-proBNP (test code 4250 pg/mL See_Comment H [Autom ated = 9775907532) message] The system which generated this result transmitted reference range : <=125. The reference range was not used to interpret this result as normal/abnormal . KYLE (test code = KYLE) Biotin has been reported to cause a negative bias, interpret results relative to patient's use of biotin. Lab Interpretation Abnormal (test code = 31265-4) [facility] [id number] 05:35:21 Test Item Value Reference Range Interpretation Comments APTT Patient (test See_Comment [Automat ed code = 3173-2) message] The system which generated this result transmitted reference range : 23 - 38 Seconds . The reference range was not used to interpr et this result as normal/abnormal . KYLE (test code = KYLE) [facility] patient population mean normal value for aPTT is 30 seconds. Lab Interpretation Normal (test code = 19836-0) [facility] [id number] 05:35:21 Test Item Value Reference Range Interpretation Comments APTT Patient (test See_Comment [Automat ed code = 3173-2) message] The system which generated this result transmitted reference range : 23 - 38 Seconds . The reference range was not used to interpr et this result as normal/abnormal . KYLE (test code = KYLE) [facility] patient population mean normal value for aPTT is 30 seconds. Lab Interpretation Normal (test code = 50701-9) [facility]way[facility]HROMBIN TIME / [id number] 05:33:21 Test Item Value Reference Range Interpretation [...] tions. Lab Interpretation (test Normal code = 88444-6) [facility]. METABOLIC PANEL (46779)2022-02-11 05:33:21 Test Item Value Reference Range Interpretation Comments NA (test code = 137 mmol/L 135-145 3718820910) K (test code = 4.3 mmol/L 3.5-5 6812474600) CL (test code = 103 mmol/L 98-108 6334829774) CO2 TOTAL (test code = 25 mmol/L 23-31 1928637588) AGAP (test code = 2-16 8136644560) BUN (test code = 19 mg/dL 7-23 3768432489) GLUCOSE (test code = 120 mg/dL 70-110 H 6424857069) CREATININE (test code = 1.15 mg/dL 0.5-1.04 H 3505123955) TOTAL BILI (test code = 0.9 mg/dL 0.1-1.3 3537200294) CALCIUM (test code = 8.9 mg/dL 8.6-10.6 5267994391) T PROTEIN (test code = 6.6 g/dL 6.3-8.2 4261347440) ALBUMIN (test code = 4.0 g/dL 3.5-5 4784934529) ALK PHOS (test code = 73 U/L 34-122 2637015917) ALTv (test code = 18 U/L 5-35 1742-6) AST(SGOT) (test code = 31 U/L 13-40 9757918111) eGFR (test code = mL/min/1.73m2 0801914830) KYLE (test code = KYLE) Association of [...] tests). Lab Interpretation Abnormal (test code = 54771-4) [facility]. METABOLIC PANEL (92807)2022-02-11 05:33:21 Test Item Value Reference Range Interpretation Comments NA (test code = 137 mmol/L 135-145 0869504622) K (test code = 4.3 mmol/L 3.5-5.0 0101466874) CL (test code = 103 mmol/L 98-108 3094701086) CO2 TOTAL (test code = 25 mmol/L 23-31 1306244443) AGAP (test code = 2-16 7435082573) BUN (test code = 19 mg/dL 7-23 9055358188) GLUCOSE (test code = 120 mg/dL 70-110 H 6104302668) CREATININE (test code = 1.15 mg/dL 0.50-1.04 H 9017923805) TOTAL BILI (test code = 0.9 mg/dL 0.1-1.3 6283806316) CALCIUM (test code = 8.9 mg/dL 8.6-10.6 9807176396) T PROTEIN (test code = 6.6 g/dL 6.3-8.2 9115498463) ALBUMIN (test code = 4.0 g/dL 3.5-5.0 7257839559) ALK PHOS (test code = 73 U/L 34-122 7809660881) ALTv (test code = 18 U/L 5-35 2-6) AST(SGOT) (test code = 31 U/L 13-40 2377572809) eGFR (test code = mL/min/1.73m2 5370763677) KYLE (test code = KYLE) Association of [...] tests). Lab Interpretation Abnormal (test code = 04211-5) [facility] / [id number] 05:33:21 Test Item Value Reference Range Interpretation Comments PROTIME PATIENT (test See_Comment [Auto mated message] code = 5964-2) The system [employer] generated this result transmitted ref erence range: 12.0 - 1 4.7 Seconds. The re ference range was not u sed to interpret this result as normal/abnor mal. INR (test code = 6301-6) Nor mal INR <1.1; Warfarin Therap eutic range 2.0 to 3. 0 or 2.5 to 3.5, dep ending upon the indica tions. Lab Interpretation (test Normal code = 57213-1) [facility] WITH [id number] 05:14:37 Test Item Value Reference Range Interpretation [...] RDW-SD (test code = 47.9 fL 39-49.9 28940-0) RDW-CV (test code = 14.9 % 12-15.5 788-0) PLT (test code = See_Comment L [Automated 777-3) message] The sy stem which generated this result transmitted reference range : 166 - 358 10*3/ ?L. The reference r abbey was not used to interpret this result as normal/abnormal . MPV (test code = 9.1 fL 9.5-12.9 L 50958-8) NRBC/100 WBC (test See_Comment [Automat ed code = 1287877494) message] The system which generated this result transmitted reference range : 0.0 - 10.0 /100 WBCs. The refer ence range was not u sed to interpret th is result as normal/abnormal . NRBC x10^3 (test code See_Comment [Auto mated = 3575075387) message] The s ystem which generated this result transmitted reference range : 10*3/?L. The reference range was not used to interpret this result as normal/abnormal . GRAN MAT (NEUT) % 78.5 % (test code = 770-8) IMM GRAN % (test code 0.20 % = 1773222849) LYMPH % (test code = 11.6 % 736-9) MONO % (test code = 8.4 % 5905-5) EOS % (test code = 1.1 % 713-8) BASO % (test code = 0.2 % 706-2) GRAN MAT x10^3(ANC) 3.45 10*3/uL 1.88-7.09 (test code = 9363617225) IMM GRAN x10^3 (test 0-0.06 code = 4359672015) LYMPH x10^3 (test code 0.51 10*3/uL 1.32-3.29 L = 731-0) MONO x10^3 (test code 0.37 10*3/uL 0.33-0.92 = 742-7) EOS x10^3 (test code = 0.05 10*3/uL 0.03-0.39 711-2) BASO x10^3 (test code 0.01-0.07 = 704-7) Lab Interpretation Abnormal (test code = 22580-6) [facility] acute hospital Coronavirus 2018 [id number] 18:08:00 Test Item Value Reference Range Interpretation [...] det ection of nucleic acids f rom jmzWDYV-ThN-3 v irus and diagnosis of SA RS-CoV-2 virusinfection. It is an Emergency Use Authorization ( EUA) testauthorized by the U.S. FDA. BASIC METABOLIC [id number] 09:37:00 Test Item Value Reference Range Interpretation [...] = 9.0 mg/dL 8.0-10.5 N CA) PROTHROMBIN [id number] 09:32:00 Test Item Value Reference Range Interpretation [...] (to prevent recurrent infar ct). 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 [facility] - XR CHEST 1 [id number] 00:00:00 [facility] 1955 Sex: F FAX: Carmenza Kelly DO [phone] [place]: St: ADM FAX: Mike Scales MD [phone] FAX: Bahman Chopra [phone] Name: LIO WATTS [facility] : 1955 Age/S: 66/F [address] [place] [address] Blvd Unit #: [id number] Loc: [place] [address] Phys: Bahman Chopra [facility] Acct: [id number] Dis Date: Status: ADM IN PHONE #: [phone] Exam Date: 06/17/2021 1320 FAX #: [phone] Reason: WATCHMAN EXAMS: CPT CODE: [id number] XR CHEST 1 V 95035 PROCEDURE INFORMATION: Exam: XR Chest Exam date [...] and signed by: Lambert Vega M.D. CC: Reglaankristen Rahman DO; Mike Lund MD; Bahman Chopra Technologist: RT Taylor(R) Trnscrd Date/Time/By: 06/17/2021 (526) : By: [email or web address] Orig Print D/T: S: 06/17/2021 (2509) PAGE 1 Signed ReportCOVID 19 Asymptomatic IH [id number] 12:29:00 Test Item Value Reference Range Interpretation [...] high or waivedcomplexit y tests. BASIC METABOLIC [id number] 11:37:00 Test Item Value Reference Range Interpretation [...] code = 9.0 mg/dL 8.0-10.5 N CA) [id number] 11:37:00 Test Item Value Reference Range Interpretation Comments PREALBUMIN (test code = PREALB) 24.3 mg/dL 16.0-40.0 N PROTHROMBIN [id number] 11:03:00 Test Item Value Reference Range Interpretation [...] (to prevent recurrent infar ct). CBC W/AUTO [id number] 10:59:00 Test Item Value Reference Range Interpretation [...] 0.0-0.1 N NRBC#) - XR CHEST 2 [id number] 00:00:00 [facility] 1955 Sex: F FAX: Carmenza Kelly DO [phone] [place]: St: PRE FAX: Y Mike Lund MD [phone] Name: LIO WATTS [facility] : 1955 Age/S: 66/F [address] [place] [address] Unit #: [id number] Loc: [place] [address] Phys: Mike Lund MD Acct: [id number] Dis Date: Status: PRE [facility] PHONE #: [phone] Exam Esequiel e: 06/16/2021 1120 FAX #: [phone] Reason: PREOP EXAMS: CPT CODE: [id number] XR CHEST 2 V 71715 PROCEDURE INFORMATION: Exam: XR Chest Exam date [...] Technologist: Danielle Nix RT(R) Trnscrd Date/Time/By: 06/16/2021 (4835) : By: [email or web address] Orig Print D/T: S: 06/16/2021 (1604) PAGE 1 Signed ReportGastrointestinal [id number] 04:35:05 Test Item Value Reference Interpretation Comments [...] Rotavirus PCR (test Not Detected code = 8666375) Salmonella PCR (test Not Detected code = [...] PCR Not Detected (test code = 7124) [facility] [id number] 19:30:47 Test Item Value Reference Range Interpretation Comments Case number (test [id number] code = [id number]) Surgical pathology See link below for PDF report (test code = Lab Report 2255) Result status (test This is Supplemental code = 8018399) Report for [id number] [facility]2021-04-09 16:31:00 Test Item Value Reference Range Interpretation Comments POC Activated Clotting Time (test code 153 s = POC Activated Clotting Time) [id number] 16:31:00 Test Item Value Reference Range Interpretation Comments POC Activated Clotting Time (test code 153 s = POC Activated Clotting Time) [place] 877801-04-09 16:31:00 Test Item Value Reference Range Interpretation Comments POC Activated Clotting Time (test code 153 s = POC Activated Clotting Time) [facility]KilyftvBTJUQMBRRB3679-19-45 16:31:00 Test Item Value Reference Range Interpretation Comments POC Activated Clotting Time (test code 153 s = POC Activated Clotting Time) [facility] CenterDaijhnjZFOXLNZURJ1360-93-52 16:31:00 Test Item Value Reference Range Interpretation Comments POC Activated Clotting Time (test code 153 s = POC Activated Clotting Time) [facility] CenterKdfnrshIJFMUDDVXW5613-00-31 16:31:00 Test Item Value Reference Range Interpretation Comments POC Activated Clotting Time (test code 153 s = POC Activated Clotting Time) [facility] CenterEbklgrpKELFKOUTIA3051-84-66 16:31:00 Test Item Value Reference Range Interpretation Comments POC Activated Clotting Time (test code 153 s = POC Activated Clotting Time) [facility] CenterGweqtwgBGDNUUBJOQ0881-61-55 14:37:00 Test Item Value Reference Range Interpretation Comments POC Activated Clotting Time (test code 454 s = POC Activated Clotting Time) [facility] CenterQtwmhinIZQGBPTTLX2061-89-78 14:37:00 Test Item Value Reference Range Interpretation Comments POC Activated Clotting Time (test code 454 s = POC Activated Clotting Time) [place] 877801-04-09 14:37:00 Test Item Value Reference Range Interpretation Comments POC Activated Clotting Time (test code 454 s = POC Activated Clotting Time) [place] 877801-04-09 14:37:00 Test Item Value Reference Range Interpretation Comments POC Activated Clotting Time (test code 454 s = POC Activated Clotting Time) [facility] CenterGdflbzqFYTBBHLGMQ6326-46-88 14:37:00 Test Item Value Reference Range Interpretation Comments POC Activated Clotting Time (test code 454 s = POC Activated Clotting Time) [facility] CenterBdjjjpwCHMGJRAXNO8773-19-28 14:37:00 Test Item Value Reference Range Interpretation Comments POC Activated Clotting Time (test code 454 s = POC Activated Clotting Time) [facility] CenterZqffpisYDAMTJITSI1028-08-48 14:37:00 Test Item Value Reference Range Interpretation Comments POC Activated Clotting Time (test code 454 s = POC Activated Clotting Time) [facility] CenterVubajrmNMYVOVKEPZ2106-03-11 14:13:00 Test Item Value Reference Range Interpretation Comments POC Activated Clotting Time (test code 354 s = POC Activated Clotting Time) [facility] CenterJffhysfLTHOGSOPYI9382-01-42 14:13:00 Test Item Value Reference Range Interpretation Comments POC Activated Clotting Time (test code 354 s = POC Activated Clotting Time) [facility] CenterTubnilvIXKHOWZYUK8970-91-31 14:13:00 Test Item Value Reference Range Interpretation Comments POC Activated Clotting Time (test code 354 s = POC Activated Clotting Time) [facility] CenterIxmzmxxXACHOWCQAZ4775-91-68 14:13:00 Test Item Value Reference Range Interpretation Comments POC Activated Clotting Time (test code 354 s = POC Activated Clotting Time) [facility] CenterBkdncfyIYZOOIHEFC2989-27-12 14:13:00 Test Item Value Reference Range Interpretation Comments POC Activated Clotting Time (test code 354 s = POC Activated Clotting Time) [facility] CenterQjuffxdNHOILUAXWB0329-57-90 14:13:00 Test Item Value Reference Range Interpretation Comments POC Activated Clotting Time (test code 354 s = POC Activated Clotting Time) [facility] CenterThadfzxXHVISKZHZM7942-76-71 14:13:00 Test Item Value Reference Range Interpretation Comments POC Activated Clotting Time (test code 354 s = POC Activated Clotting Time) [facility] WOEITWM3564-16-50 10:37:00Negative (08/29/20 5:37 AM) [facility] CenterannCHEM DCONU8333-46-89 10:37:05606Gcezulaa HermannCHEM PANEL 2020-08-29 10:37:0028[facility] HermannCHEM ZKPMC2237-01-19 10:37:001.01[facility] HermannCHEM FIAJA4899-89-46 10:37:51462Iksnispp HermannCHEM AETQJ2622-06-57 10:37:003.8[facility] HermannCHEM SHKGD3156-90-56 10:37:96014Hyqesahk HermannCHEM VFIDD6584-82-28 10:37:0028[facility] HermannCHEM JYWTR9522-24-17 10:37:009.8 [facility]annCHEM HTCSQ0390-42-35 10:37:0011.8[facility] HermannCHEM PANEL 2020-08-29 10:37:0059[facility] HermannCHEM WVBFG7127-54-54 10:37:002.9[facility] TlpsoexFDENVFTRWC1316-61-98 10:37:006.8[facility] DudebrwPBMSDHCYTQ6825-80-93 10:37:004.47[facility] OcpuctsBXJJXTWUJJ3482-04-41 10:37:0010.6[facility] INEWRZXHDB1974-47-51 10:37:0034.0[facility] JrcmfwxNPCSMBLJBH5281-30-36 10:37:00 76.1[facility] JjndccrFPDGEEPOAY1180-89-09 10:37:00 Test Item Value Reference Range Interpretation Comments MCH (test code = MCH) 23.8 pg 27.0-31.0 [facility] IvazcjvZDQIMFWLBJ0795-82-68 10:37:0031.3[facility] HermannHEMATOLOGY 2020-08-29 10:37:0018.2[facility] WfmboyfNWYKNLRMMW0206-06-13 10:37:64341Loytrhkf RtzxauiUCMNRJHAGH1821-11-32 10:37:007.5[facility] RdpxmviRKABQWKMNP7054-49-24 10:37:00 Test Item Value Reference Range Interpretation Comments PT (test code = PT) 12.8 s 12.0-14.7 [facility] UkduximDDUECSEUNF3991-62-42 10:37:00 Test Item Value Reference Range Interpretation Comments INR (test code = INR) 0.97 1 0.85-1.17 [facility] EjrytexWNILVKPORJ1382-83-09 10:37:00 Test Item Value Reference Range Interpretation Comments PTT (test code = PTT) 25.0 s 22.9-35.8 [facility] RlqshudWKOKJFUNSL9012-09-75 10:37:0070.5[facility] HermannHEMATOLOGY 2020-08-29 10:37:0018.8[facility] BdremaoWKRANEAWBX7663-46-01 10:37:009.5[facility] YlzajndQMDXFBKKYF9444-67-81 10:37:000.9[facility] LgqqxphYWPCFPOVPP2178-44-43 10:37:000.3[facility] XzlqtkbIMQRRCCHJX8980-93-80 10:37:004.8[facility] GJKWEQPPYX9795-03-66 10:37:001.3[facility] OtduihlVMLYRKMDPU8924-20-31 10:37:000.6 [facility] KkrzludTKDFVXIZDT2962-72-91 10:37:000.1[facility] HermannHEMATOLOGY 2020-08-29 10:37:001+ *ABN*(08/29/20 5:37 AM)[facility] UhbjulpZAZWZSBQWQ4133-57-18 10:37:00Not Detected (08/29/20 5:37 AM)[facility] HermannBLOOD BANK RESULTS 2020-08-29 10:37:00Negative (08/29/20 5:37 AM)[facility] HermannCHEM UTYKI3972-44-25 10:37:40261Sldeuiln HermannCHEM QDDLT6230-13-07 10:37:0028[facility] HermannCHEM OLWPX2664-01-72 10:37:001.01[facility] HermannCHEM QHRYK3102-25-32 10:37:52870 [facility] HermannCHEM RAXIV7717-51-05 10:37:003.8[facility] HermannCHEM PANEL 2020-08-29 10:37:07164Jqntemgk HermannCHEM YDTZV1813-87-44 10:37:0028[facility] HermannCHEM ITPPI0929-37-15 10:37:009.8[facility] HermannCHEM XMRNZ0717-51-24 10:37:0011.8[facility] HermannCHEM CSJDJ1879-51-63 10:37:0059[facility] HermannCHEM AONXW7843-88-46 10:37:002.9[facility] RqdyuutRSPIDKSRTU8253-77-80 10:37:006.8 [facility] NsghvgbPFBDYONOPD6200-71-97 10:37:004.47[facility] HermannHEMATOLOGY 2020-08-29 10:37:0010.6[facility] HmhhlzdHBADMQHVVD4958-41-53 10:37:0034.0[facility] KgluvzkIAJUULZLIR4118-46-38 10:37:0076.1[facility] FgfngjoBJLDAUGAPZ6001-69-14 10:37:00 Test Item Value Reference Range Interpretation Comments MCH (test code = MCH) 23.8 pg 27.0-31.0 [facility] DgafmwaUKLPGWBXUE7055-64-07 10:37:0031.3[facility] HermannHEMATOLOGY 2020-08-29 10:37:0018.2[facility] AdaquawURRFEPQFZA4595-36-13 10:37:40074Ngffxbbx RjfcdjsGLPTEAKYGU8866-32-23 10:37:007.5[facility] IuyjwxxEXGDRREMGK3568-85-07 10:37:00 Test Item Value Reference Range Interpretation Comments PT (test code = PT) 12.8 s 12.0-14.7 [facility] BotbkndFYFTRDPRTW2736-93-98 10:37:00 Test Item Value Reference Range Interpretation Comments INR (test code = INR) 0.97 1 0.85-1.17 [facility] WttpsunUDVVYQLQTF2567-19-88 10:37:00 Test Item Value Reference Range Interpretation Comments PTT (test code = PTT) 25.0 s 22.9-35.8 [facility] AakraodCWYXYJFWGN1766-80-53 10:37:0070.5[facility] HermannHEMATOLOGY 2020-08-29 10:37:0018.8[facility] XfwvzgfSXCDVEBQPH0184-71-69 10:37:009.5[facility] UpqqlzfHSYVYDJIUT6804-43-87 10:37:000.9[facility] WuhzujuYJCRZIXGPK4278-41-11 10:37:000.3[facility] NynjftuADMLKNRKQK4367-13-25 10:37:004.8[facility] AHPANTFRGH0057-03-25 10:37:001.3[facility] DvgbinlAOVSGNQQLT4892-46-38 10:37:000.6 [facility] EpjwvgkWYAPNUZFXX7659-38-20 10:37:000.1[facility] HermannHEMATOLOGY 2020-08-29 10:37:001+ *ABN*(08/29/20 5:37 AM)[facility] UkkmdbeTOITXBWKTQ1193-08-17 10:37:00Not Detected (08/29/20 5:37 AM)[facility] HermannBLOOD BANK RESULTS 2020-08-29 10:37:00Negative (08/29/20 5:37 AM)[facility] HermannCHEM YFVIK1344-14-31 10:37:50206Bcgkabqe HermannCHEM VASVA2428-18-27 10:37:0028[facility] HermannCHEM HOBLN2872-09-67 10:37:001.01[facility] HermannCHEM CCVJE4871-23-65 10:37:09191 [facility] HermannCHEM RVINN3947-17-62 10:37:003.8[facility] HermannCHEM PANEL 2020-08-29 10:37:92862Owfmqufb HermannCHEM ZBTSK7443-70-77 10:37:0028[facility] HermannCHEM RRCEB3223-67-68 10:37:009.8[facility] HermannCHEM ILFPS8677-34-84 10:37:0011.8[facility] HermannCHEM FYPNW7431-04-33 10:37:0059[facility] HermannCHEM QORUH1211-42-49 10:37:002.9[facility] AhcimjyBVFIPLJUVA7200-04-26 10:37:006.8 [facility] CjcmmbsHOFNTQCUIS5639-07-80 10:37:004.47[facility] HermannHEMATOLOGY 2020-08-29 10:37:0010.6[facility] LxtjktrJWVUHEKZZS1626-11-51 10:37:0034.0[facility] VwyiealGYNHKUTTQI6057-97-66 10:37:0076.1[facility] IgaoyfoKMRDMZITFP0143-45-71 10:37:00 Test Item Value Reference Range Interpretation Comments MCH (test code = MCH) 23.8 pg 27.0-31.0 [facility] RarleelZFQEABMQTB0023-23-82 10:37:0031.3[facility] HermannHEMATOLOGY 2020-08-29 10:37:0018.2[facility] YzmjwloTIAWSHHEQQ2338-33-35 10:37:14692Clwmhihr EumbawqHQIVANTDHT1103-78-26 10:37:007.5[facility] WkjqrltVLTHARYYAH2671-88-23 10:37:00 Test Item Value Reference Range Interpretation Comments PT (test code = PT) 12.8 s 12.0-14.7 [facility] DafgavtGSVYUISEJW6393-51-01 10:37:00 Test Item Value Reference Range Interpretation Comments INR (test code = INR) 0.97 1 0.85-1.17 [facility] UasdhojQJPHOEBGHA9388-73-70 10:37:00 Test Item Value Reference Range Interpretation Comments PTT (test code = PTT) 25.0 s 22.9-35.8 [facility] QsuanumFYGJAXHQCU5304-76-37 10:37:0070.5[facility] HermannHEMATOLOGY 2020-08-29 10:37:0018.8[facility] LuxsvkeQBVBIZCYMV1457-30-22 10:37:009.5[facility] WyqnxxoJXOJTYUQBA5077-39-96 10:37:000.9[facility] PgfcmecHAJYCLNJLR8631-42-23 10:37:000.3[facility] VqvhjmtTIAPJNVTHZ0387-54-41 10:37:004.8[facility] IAOZEZHWKZ4621-50-60 10:37:001.3[facility] FtmppqcIMBXUUSHUT7897-48-95 10:37:000.6 [facility] VmfjulhGHALPFSKVP5075-91-61 10:37:000.1[facility] HermannHEMATOLOGY 2020-08-29 10:37:001+ *ABN*(08/29/20 5:37 AM)[facility] VfkfuipXNEKXGFMPZ2306-01-20 10:37:00Not Detected (08/29/20 5:37 AM)[facility] HermannBLOOD BANK RESULTS 2020-08-29 10:37:00Negative (08/29/20 5:37 AM)[facility] HermannCHEM HAKPJ9288-34-29 10:37:32834Gdlaanbx HermannCHEM VMYIX9321-15-64 10:37:0028[facility] HermannCHEM QINMN4318-50-46 10:37:001.01[facility] HermannCHEM KCWPB3395-53-24 10:37:33974 [facility] HermannCHEM DIHIN4098-89-68 10:37:003.8[facility] HermannCHEM PANEL 2020-08-29 10:37:83616Mlfywqwm HermannCHEM INCBS6749-29-38 10:37:0028[facility] HermannCHEM OIOSF2927-96-32 10:37:009.8[facility] HermannCHEM ZGSCZ7830-89-08 10:37:0011.8[facility] HermannCHEM YMRSA7145-94-80 10:37:0059[facility] HermannCHEM JYDOO5251-46-94 10:37:002.9[facility] UjjmytfJIVHRCKBDJ3751-40-45 10:37:006.8 [facility] BqqptbzGEWCJBITYO2684-07-82 10:37:004.47[facility] HermannHEMATOLOGY 2020-08-29 10:37:0010.6[facility] EafrjiaFSAJEVQZCW4297-19-88 10:37:0034.0[facility] DadjycaZCAMCUPBZC0533-40-15 10:37:0076.1[facility] AcxgplaUWDWABZAZU3923-09-19 10:37:00 Test Item Value Reference Range Interpretation Comments MCH (test code = MCH) 23.8 pg 27.0-31.0 [facility] VltyezgZHPPJTDZAC3755-47-47 10:37:0031.3[facility] HermannHEMATOLOGY 2020-08-29 10:37:0018.2[facility] PecuhmgUUBKHDDSGS9648-02-64 10:37:14229Ozzrrnns WhwebndXXGAZTPNBA5995-19-78 10:37:007.5[facility] UshgvvxBOMBHDWEXK3622-04-60 10:37:00 Test Item Value Reference Range Interpretation Comments PT (test code = PT) 12.8 s 12.0-14.7 [facility] ZtbwtrjXULWUQSZUK9155-18-98 10:37:00 Test Item Value Reference Range Interpretation Comments INR (test code = INR) 0.97 1 0.85-1.17 [facility] CnryiuhLKKGBRUJHW0426-31-33 10:37:00 Test Item Value Reference Range Interpretation Comments PTT (test code = PTT) 25.0 s 22.9-35.8 [facility] CbdsvhvYFCUVNZXFN0971-17-63 10:37:0070.5[facility] HermannHEMATOLOGY 2020-08-29 10:37:0018.8[facility] TucvwcsARCGXDZJYH4201-43-16 10:37:009.5[facility] TdblqbjVSTLUBOWUO4567-46-29 10:37:000.9[facility] VvdfodsEHXSWIRBDY8482-01-27 10:37:000.3[facility] GrwtjsoLQMJACOYEF9055-65-68 10:37:004.8[facility] AJCXNSKNDF6271-72-00 10:37:001.3[facility] WmnqxlcTPKNWAZNFY9480-58-53 10:37:000.6 [facility] IgvepsaSWIIAVEORM3403-74-92 10:37:000.1[facility] HermannHEMATOLOGY 2020-08-29 10:37:001+ *ABN*(08/29/20 5:37 AM)[facility] HmgtftjOZTJFJISRO3427-36-20 10:37:00Not Detected (08/29/20 5:37 AM)[facility] HermannBLOOD BANK RESULTS 2020-08-29 10:37:00Negative (08/29/20 5:37 AM)[facility] HermannCHEM EBYCN6502-62-86 10:37:65570Gwgbywbp HermannCHEM EXHVJ1910-30-56 10:37:0028[facility] HermannCHEM HGNXX1438-14-86 10:37:001.01[facility] HermannCHEM BACGZ8412-73-98 10:37:34693 [facility] HermannCHEM FLTDP3393-67-49 10:37:003.8[facility] HermannCHEM PANEL 2020-08-29 10:37:25125Trhhmouh HermannCHEM ZZXTT8358-55-41 10:37:0028[facility] HermannCHEM WVWJP4736-64-62 10:37:009.8[facility] HermannCHEM SBOGI1922-40-01 10:37:0011.8[facility] HermannCHEM MAXZP3520-60-39 10:37:0059[facility] HermannCHEM FVDSP8910-32-75 10:37:002.9[facility] CdrrlzxVIGZPMYNSK0919-93-14 10:37:006.8 [facility] WdonpzyGHKAZODZKM3331-07-88 10:37:004.47[facility] HermannHEMATOLOGY 2020-08-29 10:37:0010.6[facility] ZgdeobdXHZMPAUERZ2094-76-10 10:37:0034.0[facility] QjiptcwKBGGJGWSGG5268-87-14 10:37:0076.1[facility] GoxoeooKYQAQCHEMF6442-22-18 10:37:00 Test Item Value Reference Range Interpretation Comments MCH (test code = MCH) 23.8 pg 27.0-31.0 [facility] UqnrrfyUIRQTJFRSA7270-00-26 10:37:0031.3[facility] HermannHEMATOLOGY 2020-08-29 10:37:0018.2[facility] YarpicmVRWPDSIWHI9518-07-74 10:37:93381Dxphhghw TsocbwfROGAICUXHP6834-43-37 10:37:007.5[facility] MkwskwcGSZZCMCHKF6572-75-81 10:37:00 Test Item Value Reference Range Interpretation Comments PT (test code = PT) 12.8 s 12.0-14.7 [facility] XezegasWVFLUDQDCJ5467-50-71 10:37:00 Test Item Value Reference Range Interpretation Comments INR (test code = INR) 0.97 1 0.85-1.17 [facility] DdvsvkrJYBFZAIISB4672-30-69 10:37:00 Test Item Value Reference Range Interpretation Comments PTT (test code = PTT) 25.0 s 22.9-35.8 [facility] ZrkmwjdOEZTESURON1509-07-72 10:37:0070.5[facility] HermannHEMATOLOGY 2020-08-29 10:37:0018.8[facility] PmlaogjWIYICOAZMW8830-54-05 10:37:009.5[facility] BhpnwpcDOABBAMLCX0715-86-47 10:37:000.9[facility] DwxasnpYEAYNOTRHF8331-22-13 10:37:000.3[facility] NkqtpwsXJGQLTPXRI0764-43-86 10:37:004.8[facility] EDJYDBZQNH2811-52-03 10:37:001.3[facility] CgbwhreXNZRMBSQHF7720-73-98 10:37:000.6 [facility] XvibydiYPTPALPBRO9958-49-47 10:37:000.1[facility] HermannHEMATOLOGY 2020-08-29 10:37:001+ *ABN*(08/29/20 5:37 AM)[facility] EwqjfzvGQXDGUTUMK7306-95-83 10:37:00Not Detected (08/29/20 5:37 AM)[facility] HermannBLOOD BANK RESULTS 2020-08-29 10:37:00Negative (08/29/20 5:37 AM)[facility] HermannCHEM QPSCY6076-26-57 10:37:53951Hltqzygn HermannCHEM KYCJK9656-26-41 10:37:0028[facility] HermannCHEM GOWFL6101-39-62 10:37:001.01[facility] HermannCHEM DKSNH2812-46-21 10:37:78120 [facility] HermannCHEM YOTOI9436-19-69 10:37:003.8[facility] HermannCHEM PANEL 2020-08-29 10:37:97426Yuxhhkst HermannCHEM XSMNP2619-97-44 10:37:0028[facility] HermannCHEM NRPIE2255-35-70 10:37:009.8[facility] HermannCHEM TQCBQ7630-11-50 10:37:0011.8[facility] HermannCHEM YUDBX1631-50-12 10:37:0059[facility] HermannCHEM YADGR6051-01-72 10:37:002.9[facility] VljkaxfETQJNPJIBF4889-67-97 10:37:006.8 [facility] DlmghwiMFSHJWLCZG8017-23-91 10:37:004.47[facility] HermannHEMATOLOGY 2020-08-29 10:37:0010.6[facility] IobnxpbBYUOANRARR4383-70-36 10:37:0034.0[facility] FfntbsiPJKNMIHFHT0439-97-30 10:37:0076.1[facility] PbkwbyyMBMINRVBPH9561-32-09 10:37:00 Test Item Value Reference Range Interpretation Comments MCH (test code = MCH) 23.8 pg 27.0-31.0 [facility] DfnqdcqHEWEMEGEUP2426-98-19 10:37:0031.3[facility] HermannHEMATOLOGY 2020-08-29 10:37:0018.2[facility] XnskavqBEQLJRYPNO2072-05-23 10:37:69637Vnvkzecx YpmvwgyLNKOSRLDKH7935-28-01 10:37:007.5[facility] BwouustKNXBQSJCDR2309-20-43 10:37:00 Test Item Value Reference Range Interpretation Comments PT (test code = PT) 12.8 s 12.0-14.7 [facility] XcbwjubKYATEUZCBD2531-64-32 10:37:00 Test Item Value Reference Range Interpretation Comments INR (test code = INR) 0.97 1 0.85-1.17 [facility] ZgdtkuaNNARBSBZHD3871-67-67 10:37:00 Test Item Value Reference Range Interpretation Comments PTT (test code = PTT) 25.0 s 22.9-35.8 [facility] UzatuhnAUBPZXUJTH6764-64-67 10:37:0070.5[facility] HermannHEMATOLOGY 2020-08-29 10:37:0018.8[facility] LrqrtnoISPJBPARPU4556-98-46 10:37:009.5[facility] HrbjjydXWCFFDKKQS0218-24-43 10:37:000.9[facility] DbivhlyLQVJYZTXCS8809-45-15 10:37:000.3[facility] CjjyunaNVYJYCCOEH3023-70-68 10:37:004.8[facility] QIADRSEGYB8857-69-41 10:37:001.3[facility] WkkpobgYJWFLRCMZI0838-05-89 10:37:000.6 [facility] CyrvubfMFBVRGGLVT5950-44-20 10:37:000.1[facility] HermannHEMATOLOGY 2020-08-29 10:37:001+ *ABN*(08/29/20 5:37 AM)[facility] TwutevoNLBPLSKLPT8195-63-11 10:37:00Not Detected (08/29/20 5:37 AM)[facility] HermannBLOOD BANK RESULTS 2020-08-29 10:37:00Negative (08/29/20 5:37 AM)[facility] HermannCHEM BBGBY7413-02-92 10:37:55363Ggixxxqo HermannCHEM XHYCC4999-14-18 10:37:0028[facility] HermannCHEM KGQLC3860-49-84 10:37:001.01[facility] HermannCHEM VLART0144-28-65 10:37:21596 [facility] HermannCHEM OUPFE7564-24-78 10:37:003.8[facility] HermannCHEM PANEL 2020-08-29 10:37:57404Dqwmnrhe HermannCHEM PCOPC2387-57-51 10:37:0028[facility] HermannCHEM QUJAM3651-10-68 10:37:009.8[facility] HermannCHEM ZLTMF8145-69-04 10:37:0011.8[facility] HermannCHEM JLOUG0309-63-44 10:37:0059[facility] HermannCHEM HJNXT8554-24-53 10:37:002.9[facility] QlsfbdaMKYGDVZTUY8487-49-85 10:37:006.8 [facility] FtzsphhMECWFATUJP8093-12-16 10:37:004.47[facility] HermannHEMATOLOGY 2020-08-29 10:37:0010.6[facility] NltbqyuKLGWTNRWZK2850-17-26 10:37:0034.0[facility] VgxjtqzMAAJKZEDIF2503-58-81 10:37:0076.1[facility] ZqdzghdTIAZKDKIGH5665-34-88 10:37:00 Test Item Value Reference Range Interpretation Comments MCH (test code = MCH) 23.8 pg 27.0-31.0 [facility] CenterLsrtrkoFWDYCHBDWD9988-57-94 10:37:0031.3[facility] HermannHEMATOLOGY 2020-08-29 10:37:0018.2[facility] VzbtmmeUFNZURHCFO9364-92-33 10:37:14199Wlszisrz XdebgwiNBGCRPGTRH2082-37-97 10:37:007.5[facility] GfbpfduNXOQYQLUJZ3773-80-60 10:37:00 Test Item Value Reference Range Interpretation Comments PT (test code = PT) 12.8 s 12.0-14.7 [facility] LixopcgLSUBNGOPFT5690-41-86 10:37:00 Test Item Value Reference Range Interpretation Comments INR (test code = INR) 0.97 1 0.85-1.17 [facility] QtibctvWHHHFEIRLN7815-94-67 10:37:00 Test Item Value Reference Range Interpretation Comments PTT (test code = PTT) 25.0 s 22.9-35.8 [facility] PuzdssfSVMFBFVQAU3610-07-97 10:37:0070.5[facility] HermannHEMATOLOGY 2020-08-29 10:37:0018.8[facility] CjyauslWZZJIGNUFX0539-08-76 10:37:009.5[facility] SwraxejYFZQJONPNT6728-81-47 10:37:000.9[facility] PuhxfovBFQQKSXURG4183-02-13 10:37:000.3[facility] BvsedhaWGKOAATNQQ1206-43-73 10:37:004.8[facility] YPKHECTLPP1015-92-38 10:37:001.3[facility] NatkrojMUGRXVGPTT8982-24-74 10:37:000.6 [facility] FfrfggrMHPOOQNJZI6431-58-12 10:37:000.1[facility] HermannHEMATOLOGY 2020-08-29 10:37:001+ *ABN*(08/29/20 5:37 AM)[facility] ChlrauoBNURSBMAWT1518-95-61 10:37:00Not Detected (08/29/20 5:37 AM)[facility] CenterNOAH, GC, TV,PCR, IN [id number] 15:38:00 Test Item Value Reference Range Interpretation Comments FT (test code = CHTR) Not detected (qualifier Not Detected N value) FT (test code = Not detected (qualifier Not Detected N NGONO) value) FT (test code = TRVG) Not detected (qualifier Not Detected N value) [facility] [place] WITH [id number] 10:57:00 Test Item Value Reference Range Interpretation Comments Color (test code = UCOLR) Dk. Yellow Clarity (test code = UCLAR) Hazy Glucose (test code = UGLUC) NEGATIVE NEGATIVE N Bilirubin (test code = UBILI) NEGATIVE NEGATIVE N Ketones (test code = UKET) NEGATIVE NEGATIVE N Specific [place] (test code = 1.025 1.005-1.030 A USPGR) [...] None Seen None Seen N URCRYS) [facility]"
--- NOTE | 2022-09-19 21:51 | RAD REPORT ---
EXAM DESCRIPTION: RAD - Chest Single View - 09/19/2022 9:43 pm CLINICAL HISTORY: difficulty swallowing COMPARISON: <Comparisons> FINDINGS: Lines: None. Lungs: No evidence of edema or pneumonia. Pleural: No significant pleural effusions or pneumothorax. Cardiac: Cardiomegaly. Mediastinum: Within normal limits. Bones: No acute fractures. Bilateral shoulder arthroplasties. Other: None IMPRESSION: No acute cardiopulmonary disease.
[2022-09-19 23:12] LABS: Hematocrit 33.3 % (36.0-45.0); Lymphocytes % 13.6 % (15.3-44.8); MPV 6.9 fL (7.6-11.3); RBC Red Blood Cell Count 3.92 M/uL (3.86-4.86)
[2022-09-19] MEDS ORDERED: METHYLPREDNISOLONE 125 MG INJ ONE (23:16)
[2022-09-19] MEDS ORDERED: DIPHENHYDRAMINE 50 MG/ML VIAL ONE (23:16)
[2022-09-19] MEDS ORDERED: FAMOTIDINE 20 MG/2 ML VIAL IV ONE (23:16)
[2022-09-19] MEDS ORDERED: MORPHINE 4 MG/ML SYR ONE (23:42)
[2022-09-19] MEDS ORDERED: HYDRALAZINE HCL 20 MG/ML VIAL ONE (23:42)
[2022-09-19] MEDS ORDERED: ONDANSETRON 4 MG/2 ML VIAL ONE (23:42)
[2022-09-19 23:57] LABS: Protime INR 0.95
[2022-09-20 00:09] LABS: Albumin 3.3 g/dL (3.4-5.0); Bilirubin Direct 0.2 mg/dL (0-0.2); Bilirubin Total 0.5 mg/dL (0.2-1.0); Magnesium 2.4 mg/dL (1.6-2.4); Potassium 3.2 mEq/L (3.5-5.1); Protein, Total 6.6 g/dL (6.4-8.2)
[2022-09-20] MEDS ORDERED: POTASSIUM 25 MEQ EFFERV TAB ONE (00:59)
--- NOTE | 2022-09-20 01:56 | ER ---
Nurse's Notes [facility] Name: Marjan Kolb Age: 67 yrs Sex: Female : 1955 Arrival Date: 09/19/2022 Time: 21:15 Bed 8 Private MD: Lele Rahman H Diagnosis: Hypokalemia;Acute pharyngitis, unspecified;Shortness of breath Presentation: 09/19 21:28 Chief complaint: Patient states: C/o difficulty swallowing, SOB, and states is having a ll3 hard time swallowing secretions. Coronavirus screen: Vaccine status: Patient reports receiving the 2nd dose of the covid vaccine. At this time, the client does not indicate any symptoms associated with coronavirus-19. Ebola Screen: No symptoms or risks identified at this time. Initial Sepsis Screen: Does the patient meet any 2 criteria? No. Patient's initial sepsis screen is negative. Does the patient have a suspected source of infection? No. Patient's initial sepsis screen is negative. Risk Assessment: Do you want to hurt yourself or someone else? Patient reports no desire to harm self or others. Onset of symptoms was September 19, 2022 at 20:30. 21:28 Method Of Arrival: Wheelchair ll3 21:28 Acuity: BLAYNE 3 ll3 Triage Assessment: 21:30 General: Appears uncomfortable, Behavior is calm, cooperative. Pain: Complains of pain ll3 in soft palate Pain does not radiate. Pain currently is 9 out of 10 on a pain scale. Pain began 1 hour ago. Is continuous. EENT: Reports difficulty swallowing since 2029. Historical: - Allergies: 21:30 Azithromycin; ll3 21:30 Bactrim; ll3 21:30 butorphanol; ll3 21:30 Fentanyl; ll3 21:30 Reglan; ll3 21:30 Sulfa (Sulfonamide Antibiotics); ll3 21:30 TRIMETHOPRIM; ll3 - PMHx: 21:30 Anxiety; Atrial fibrillation; Bipolar disorder; esophageal varicies; Hepatitis; HIV ll3 positive; Hypertensive disorder; Migraine; panic attack; - Immunization history:: Client reports receiving the 2nd dose of the Covid vaccine. - Social history:: Smoking status: Patient denies any tobacco usage or history of. Screenin:03 [facility] ED Fall Risk Assessment (Adult). Abuse screen: Denies threats or abuse. Denies as6 injuries from another. Nutritional screening: No deficits noted. Tuberculosis screening: No symptoms or risk factors identified. Assessment: 23:20 General: "Can you please ask him for morphine and zofran?". as6 09/20 01:00 Reassessment: Patient appears in no apparent distress at this time. Patient and/or jb4 family updated on plan of care and expected duration. Pain level reassessed. Patient is alert, oriented x 3, equal unlabored respirations, skin warm/dry/pink. 02:06 Reassessment: Patient appears in no apparent distress at this time. Patient and/or jb4 family updated on plan of care and expected duration. Pain level reassessed. Patient is alert, oriented x 3, equal unlabored respirations, skin warm/dry/pink. Vital Signs: 09/19 21:28 BP 217 / 112; Pulse 66; Resp 18; Temp 98.4(O); Pulse Ox 100% on R/A; Weight 80.74 kg ll3 (R); Height 5 ft. 4 in. (R); Pain 9/10; 23:18 BP 205 / 102; Pulse 63; Resp 20 S; Pulse Ox 99% on R/A; as6 09/20 00:13 BP 157 / 109; Pulse 65; Resp 19 S; Pulse Ox 97% on R/A; as6 01:08 Pulse 67; Resp 19 S; Pulse Ox 95% on R/A; as6 09/19 21:28 Body Mass Index 30.55 (80.74 kg, 162.56 cm) ll3 09/19 21:28 Pain Scale: Adult ll3 ED Course: 09/19 21:16 Patient arrived in ED. mr 21:16 Lele Rahman DO is Private Physician. mr 21:19 Justus Neil PA is PHCP. cp 21:19 Dion Randhawa MD is Attending Physician. cp 21:30 Triage completed. ll3 21:30 Arm band placed on Patient placed in an exam room, on a stretcher, on pulse oximetry. ll3 21:45 XRAY Chest (1 view) In Process Unspecified. EDMS 23:00 Inserted saline lock: 20 gauge in right forearm, using aseptic technique. Blood as6 collected. ultrasound guided. 23:03 Troponin HS Sent. as6 23:03 PT-INR Sent. as6 23:03 NT PRO-BNP Sent. as6 23:03 Magnesium Sent. as 23:03 LFT's Sent. as 23:03 CBC with Diff Sent. as6 23:03 Basic Metabolic Panel Sent. as6 23:03 [place] Screen Profile Sent. as6 23:18 Dayo Ko, RN is Primary Nurse. as6 23:20 Bed in low position. Call light in reach. Client placed on continuous cardiac and pulse as6 oximetry monitoring. NIBP monitoring applied. 09/20 00:47 CT Soft Tissue Neck W/contr In Process Unspecified. EDMS 00:47 CT Chest W/ Con In Process Unspecified. EDMS 02:06 No provider procedures requiring assistance completed. IV discontinued, intact, jb4 bleeding controlled, No redness/swelling at site. Pressure dressing applied. Administered Medications: 09/19 23:18 Drug: diphenhydrAMINE IVP 50 mg Route: IVP; Site: right forearm; as6 23:18 Drug: Famotidine IVP 20 mg Route: IVP; Site: right forearm; as6 23:18 Drug: MethylPrednisoLONE IVP 125 mg Route: IVP; Site: right forearm; as6 23:50 Drug: morphine IVP or IV 4 mg Route: IVP; Infused Over: 4 mins; Site: right forearm; as6 23:50 Drug: Ondansetron IVP 4 mg Route: IVP; Site: right forearm; as6 23:50 Drug: hydrALAZINE IVP 10 mg Route: IVP; Site: right forearm; as6 09/20 00:57 Drug: Potassium PO Effervescent Tablet 50 mEq Route: PO; as6 02:01 Not Given (Patient Refused): GI Cocktail without - (Maalox PO Suspension 30 jb4 ml, Lidocaine Mucous Membrane Liquid 2 % 15 ml) PO once Medication: 09/19 23:19 VIS not applicable for this client. as6 Outcome: 09/20 01:55 Discharge ordered by . cp 02:06 Discharged to home via wheelchair, with family. jb4 02:06 Condition: stable 02:06 Discharge instructions given to patient, Instructed on discharge instructions, follow up and referral plans. medication usage, Demonstrated understanding of instructions, follow-up care, medications, Prescriptions given X 3. 02:08 Patient left the ED. jb4 Signatures: Dispatcher [employer] EDOR Jessie Hill mr Justus Neil, Mode Lazcano cp RN RN jb4 Dayo Ko RN RN as6 Shyann Moore RN RN ll3
--- NOTE | 2022-09-20 01:56 | EDPHYS ---
Physician Documentation [facility] Name: Marjan Kolb Age: 67 yrs Sex: Female : 1955 Arrival Date: 09/19/2022 Time: 21:15 Bed 8 Private MD: Lele Rahman H ED Physician Dion Randhawa HPI: 09/19 21:40 This 67 yrs old Female presents to ER via Wheelchair with complaints of Difficulty cp Swallowing. 21:40 The patient presents with dysphagia, of liquids, pain. The patient describes throat cp pain as constant. Onset: The symptoms/episode began/occurred 1 hour(s) ago. Severity of symptoms: in the emergency department the symptoms are unchanged, despite home interventions. 21:40 Associated signs and symptoms: Pertinent positives: dysphagia, Sore throat Pertinent cp negatives chest pain, cough, fever, vomiting. Historical: - Allergies: 21:30 Azithromycin; ll3 21:30 Bactrim; ll3 21:30 butorphanol; ll3 21:30 Fentanyl; ll3 21:30 Reglan; ll3 21:30 Sulfa (Sulfonamide Antibiotics); ll3 21:30 TRIMETHOPRIM; ll3 - PMHx: 21:30 Anxiety; Atrial fibrillation; Bipolar disorder; esophageal varicies; Hepatitis; HIV ll3 positive; Hypertensive disorder; Migraine; panic attack; - Immunization history:: Client reports receiving the 2nd dose of the Covid vaccine. - Social history:: Smoking status: Patient denies any tobacco usage or history of. ROS: 21:45 Constitutional: Negative for body aches, chills, fever, poor PO intake. cp 21:45 Cardiovascular: Negative for chest pain, edema, palpitations. cp 21:45 Eyes: Negative for injury, pain, redness, and discharge. cp 21:45 ENT: Positive for difficulty swallowing, sore throat, Negative for drainage from ear(s), ear pain, foreign body sensation, difficulty handling secretions. 21:45 Neck: Positive for pain with movement, pain at rest, Negative for stiffness. 21:45 Respiratory: Negative for cough, shortness of breath, wheezing. 21:45 Abdomen/GI: Negative for abdominal pain, vomiting, diarrhea, constipation. 21:45 Back: Negative for pain at rest, pain with movement. 21:45 Skin: Negative for diaphoresis, rash. 21:45 Neuro: Negative for altered mental status, dizziness, headache, syncope, weakness. 21:45 All other systems are negative. Exam: 21:50 Constitutional: The patient appears alert, awake, non-diaphoretic, non-toxic, well cp developed, well nourished, uncomfortable. 21:50 Head/Face: Normocephalic, atraumatic. cp 21:50 Eyes: Periorbital structures: appear normal, Conjunctiva: normal, no exudate, no injection, Sclera: no appreciated abnormality, Lids and lashes: appear normal, bilaterally. 21:50 ENT: External ear(s): are unremarkable, Ear canal(s): are normal, clear, TM's: bulging, is not appreciated, bilaterally, dullness, bilaterally, erythema, is not appreciated, bilaterally, Nose: is normal, Mouth: Lips: moist, Oral mucosa: moist, Posterior pharynx: Airway: no evidence of obstruction, patent, swelling, is not appreciated, erythema, that is mild, exudate, is not appreciated, Voice: is normal. 21:50 Neck: ROM/movement: limited range of motion, is not appreciated, Meningeal signs: are not present, nuchal rigidity, is not appreciated. 21:50 Chest/axilla: Inspection: normal. 21:50 Cardiovascular: Rate: normal, Rhythm: regular, Edema: is not appreciated, JVD: is not appreciated. 21:50 Respiratory: the patient does not display signs of respiratory distress, Respirations: normal, no use of accessory muscles, no retractions, labored breathing, is not present, Breath sounds: are clear throughout, no decreased breath sounds, no stridor, no wheezing. 21:50 Abdomen/GI: Inspection: abdomen appears normal, Palpation: abdomen is soft and non-tender, in all quadrants. 21:50 Back: pain, is absent, ROM is normal. 21:50 Skin: cellulitis, is not appreciated, no rash present. 21:50 Neuro: Orientation: to person, place \T\ time. Mentation: is normal, Motor: moves all fours, strength is normal, Sensation: is normal. 22:33 ECG was reviewed by the Attending Physician. 09/20 01:56 ECG was reviewed by the Attending Physician. Vital Signs: 09/19 21:28 BP 217 / 112; Pulse 66; Resp 18; Temp 98.4(O); Pulse Ox 100% on R/A; Weight 80.74 kg ll3 (R); Height 5 ft. 4 in. (R); Pain 9/10; 23:18 BP 205 / 102; Pulse 63; Resp 20 S; Pulse Ox 99% on R/A; as6 09/20 00:13 BP 157 / 109; Pulse 65; Resp 19 S; Pulse Ox 97% on R/A; as6 01:08 Pulse 67; Resp 19 S; Pulse Ox 95% on R/A; as6 09/19 21:28 Body Mass Index 30.55 (80.74 kg, 162.56 cm) ll3 09/19 21:28 Pain Scale: Adult ll3 MDM: 09/19 21:20 Patient medically screened. cp 09/20 01:55 Data reviewed: vital signs, nurses notes, lab test result(s), EKG, radiologic studies, cp CT scan, plain films. 01:55 Differential diagnosis: epiglottitis, gastroesophageal reflux disease, group A strep cp tonsillitis, gail's angina, peritonsillar abscess chlamydia pharyngitis, pharyngitis, retropharyngeal abcess. Consideration of Admission/Observation Escalation of care including admission/observation considered. I considered the following discharge prescriptions or medication management in the emergency department Medications were administered in the Emergency Department. See MAR. Care significantly affected by the following chronic conditions: Hypertension, HIV. Counseling: I had a detailed discussion with the patient and/or guardian regarding: the historical points, exam findings, and any diagnostic results supporting the discharge/admit diagnosis, lab results, radiology results, to return to the emergency department if symptoms worsen or persist or if there are any questions or concerns that arise at home. Response to treatment: the patient's symptoms have markedly improved after treatment, and as a result, I will discharge patient. 09/19 21:32 Order name: Basic Metabolic Panel; Complete Time: 00:34 cp 09/20 00:34 Interpretation: Normal except: K 3.2; BUN 36; CRE 1.24; GFR 48. cp 09/19 21:32 Order name: CBC with Diff; Complete Time: 23:28 cp 09/19 23:28 Interpretation: Normal except: HGB 10.8; HCT 33.3; PLT 132; RDW 15.4; MPV 6.9; ADE% cp 76.6; LYM% 13.6. 09/19 21:32 Order name: LFT's; Complete Time: 00:34 cp / 00:34 Interpretation: Normal except: ALB 3.3; A/G 1.0. cp 09/19 21:32 Order name: Magnesium; Complete Time: 00:34 cp 09/19 21:32 Order name: NT PRO-BNP; Complete Time: 00:34 cp 09/20 00:34 Interpretation: Abnormal: NT PRO-BNP 6683. cp 09/19 21:32 Order name: PT-INR; Complete Time: 00:34 cp 09/19 21:32 Order name: Troponin HS; Complete Time: 00:34 cp 09/20 00:34 Interpretation: Reviewed. cp 09/19 21:32 Order name: Strep; Complete Time: 23:28 cp 09/19 21:32 Order name: [place] Screen Profile; Complete Time: 00:34 cp 09/19 21:32 Order name: COVID-19 SARS RT PCR; Complete Time: 23:28 cp 09/19 22:59 Order name: Throat Culture EDKY 09/19 21:32 Order name: XRAY Chest (1 view); Complete Time: 22:14 cp 09/19 22:14 Interpretation: Report review. cp 09/19 22:15 Order name: CT Soft Tissue Neck W/contr cp 09/19 22:16 Order name: CT Chest W/ Con cp 09/19 21:32 Order name: EKG; Complete Time: 21:33 cp 09/19 21:32 Order name: Cardiac monitoring; Complete Time: 23:03 cp 09/19 21:32 Order name: EKG - Nurse/Tech; Complete Time: 23:03 cp 09/19 21:32 Order name: IV Saline Lock; Complete Time: 23:03 cp 09/19 21:32 Order name: Labs collected and sent; Complete Time: 23:03 cp 09/19 21:32 Order name: O2 Per Protocol; Complete Time: 23:03 cp 09/19 21:32 Order name: O2 Sat Monitoring; Complete Time: 23:03 cp 09/19 23:16 Order name: Misc. Order: Recollect Green and Blue Top; Complete Time: 23:34 rv1 09/20 01:28 Order name: EKG - Nurse/Tech; Complete Time: 01:54 cp EC/30 22:33 Rate is 62 beats/min. Rhythm is regular. ND interval is normal. QRS interval is normal. cp QT interval is normal. Interpreted by me. Reviewed by me. 09/20 01:56 Rate is 65 beats/min. Rhythm is regular. ND interval is normal. QRS interval is normal. cp QT interval is normal. T waves are Inverted in lead aVR. Interpreted by me. Reviewed by me. Administered Medications: 09/19 23:18 Drug: diphenhydrAMINE IVP 50 mg Route: IVP; Site: right forearm; as6 23:18 Drug: Famotidine IVP 20 mg Route: IVP; Site: right forearm; as6 23:18 Drug: MethylPrednisoLONE IVP 125 mg Route: IVP; Site: right forearm; as6 23:50 Drug: morphine IVP or IV 4 mg Route: IVP; Infused Over: 4 mins; Site: right forearm; as6 23:50 Drug: Ondansetron IVP 4 mg Route: IVP; Site: right forearm; as6 23:50 Drug: hydrALAZINE IVP 10 mg Route: IVP; Site: right forearm; as6 09/20 00:57 Drug: Potassium PO Effervescent Tablet 50 mEq Route: PO; as6 02:01 Not Given (Patient Refused): GI Cocktail without - (Maalox PO Suspension 30 jb4 ml, Lidocaine Mucous Membrane Liquid 2 % 15 ml) PO once Disposition: 06:55 Co-signature as Attending Physician, Dion Randhawa MD I agree with the assessment sp4 and plan of care. I reviewed the patient's care provided by the Advanced Practice Provider and agree with the diagnosis and treatment plan. Disposition Summary: 09/20/22 01:55 Discharge Ordered Location: Home cp Condition: Stable cp Problem: new cp Symptoms: have improved cp Diagnosis - Hypokalemia cp - Acute pharyngitis, unspecified cp - Shortness of breath cp Followup: cp - With: Private Physician - When: 1 - 2 days - Reason: Recheck today's complaints Discharge Instructions: - Discharge Summary Sheet cp - Potassium Content of Foods cp - Pharyngitis cp - Shortness of Breath, Adult cp - Sore Throat cp - Hypokalemia cp Forms: - Medication Reconciliation Form cp - Thank You Letter cp - Antibiotic Education cp - Prescription Opioid Use cp Prescriptions: - Amoxicillin 875 mg Oral Tablet - take 1 tablet by ORAL route every 12 hours for 10 days; 20 tablet; Refills: 0, cp Product Selection Permitted - Potassium Chloride 10 mEq Oral capsule, extended release - take 2 tablet by ORAL route once daily for 3 days; 6 tablet; Refills: 0, cp Product Selection Permitted - Medrol (Niall) 4 mg Oral Tablets, Dose Pack - take 1 tablet by ORAL route as directed - follow package instructions; 1 cp packet; Refills: 0, Product Selection Permitted Signatures: Dispatcher [employer] EDJustus Ugalde PA PA cp Slawson, Ashby RN RN as6 Shyann Moore RN RN ll3 Ness Nicholas1 Dion Randhawa MD MD sp4 Mode Bhatt RN jb4
[2022-09-20] MEDS ORDERED: MAGNES/ALUMIN/SIMET 30ML UCUP ONE (02:03)
[2022-09-20] MEDS ORDERED: LIDOCAINE VISCOUS 2% SOLN 15 ML UDC ONE (02:04)
[2022-09-20 02:27] VITALS: TEMP 98.4
[2022-09-20 02:37] VITALS: BP 157/109
[2022-09-20 02:38] VITALS: O2SAT 95
--- NOTE | 2022-09-20 14:41 | RAD REPORT ---
EXAM DESCRIPTION: CT - Thorax W/ Con - 09/20/2022 6:38 am CLINICAL HISTORY: 67 years, Female, difficulty swallowing COMPARISON: 09/19/2022 FINDINGS: Multiple transaxial tomograms of the chest were obtained from the lung apices through the adrenal glands, utilizing 5 mm slice thickness at 5 mm interval reconstruction after the administrati on of IV contrast. Multiplanar reformats in the sagittal and coronal plane were generated and reviewed. This exam was performed according to our departmental dose-optimization protocol, which includes auto mated exposure control, adjustment of the mA and/or kV according to patient size and/or use of iterat bruno reconstruction technique. Study is compromised due to bilateral shoulder arthroplasties. The lungs parenchyma demonstrate to be clear. No evidence for normal thorax. No significant masses an d/or nodules are identified. Minimal atelectatic changes lung bases. The trachea mainstem bronchus demonstrate to be normal. There is no significant pleural and/or perica rdial effusions. The thoracic aorta demonstrate to be prominent measuring 3.9 x 3.7 cm on image 18/57. The heart is pr ominent. There are very minimal coronary artery calcifications. The central pulmonary arteries demons trate to be normal. Again there is is mechanical occlusive device within the left atrial appendage. There is no significant mediastinal and/or hilar lymphadenopathy. The axillary regions demonstrate to be clear. The bone windows demonstrate no significant skeletal lesions. The visualized portions of the upper abdomen demonstrate status post cystectomy. Bilateral simple august al cyst with the largest one upper pole left kidney measuring 5.5 x 5.4 cm on image 51. No follow-up is recommended. IMPRESSION: Minimal atelectatic changes lung bases. Cardiomegaly with very minimal coronary artery calcifications. Status post cholecystectomy. Bilateral simple renal cyst. Electronically signed by: Medhat Herrera MD 09/20/2022 1:02 AM CDT Due to temporary technical issues with the PACS/Fluency reporting system, reports are being signed by the in house radiologist without review as a courtesy to ensure prompt reporting. The interpreting r adiologist is fully responsible for the content of the report.
--- NOTE | 2022-09-20 14:48 | RAD REPORT ---
EXAM DESCRIPTION: CT - Soft Tissue Neck W/Contr - 09/20/2022 6:38 am CLINICAL HISTORY: Difficulty swallowing TECHNIQUE: Contiguous axial images obtained through the neck following the uneventful administration of IV contrast. Coronal and sagittal reformatted images were provided. This exam was performed according to our departmental dose-optimization program, which includes autom ated exposure control, adjustment of the mA and/or kV according to patient size and/or use of iterati ve reconstruction technique. COMPARISON: None available for comparison FINDINGS: The nasopharynx is normal in contour. Oropharynx within normal limits. No evidence of peritonsillar, parapharyngeal or retropharyngeal abscess. The epiglottis and aryepiglottic folds are within normal limits. Images are degraded by motion artifact. No evidence of cervical adenopathy. Salivary glands are within normal limits. No dominant thyroid nodules. Prominent artifact along the upper thorax secondary to bilateral glenohumeral prosthesis. IMPRESSION: No evidence of acute pathology in the soft tissues of the neck. Electronically signed by: Butch Sal MD 09/20/2022 1:36 AM CDT Due to temporary technical issues with the PACS/Fluency reporting system, reports are being signed by the in house radiologist without review as a courtesy to ensure prompt reporting. The interpreting r adiologist is fully responsible for the content of the report.
--- NOTE | 2022-09-21 08:12 | EKG ---
Test Date: 2022-09-20 Test Time: 01:52:26 Explosives Detonator: PATRICIA MEASUREMENT RESULTS: Intervals: Rate: 65 IA: 190 QRSD: 88 QT: 476 QTc: 495 Odell: P: 61 IA: 190 QRS: 54 T: 39 INTERPRETIVE STATEMENTS: Normal sinus rhythm Minimal voltage criteria for LVH, may be normal variant Nonspecific ST and T wave abnormality Prolonged QT Abnormal ECG Compared to ECG 08/27/2022 07:29:53 Left ventricular hypertrophy now present Sinus bradycardia no longer present ST (T wave) deviation still present Electronically Signed On 09-21-22 08:11:05 CDT by Per Crane
== END 2022-09-20 02:08 | disposition home or self-care (01) ==
LOC: ER 21:15
DX: E87.6 Hypokalemia (principal); J02.9 Acute pharyngitis, unspecified; I10 Essential (primary) hypertension; Z20.822 Contact with and (suspected) exposure to COVID-19; Z21 Asymptomatic human immunodeficiency virus [HIV] infection status; Z88.1 Allergy status to other antibiotic agents; Z88.2 Allergy status to sulfonamides; Z88.3 Allergy status to other anti-infective agents
CPT/HCPCS: 93005; 87070; 85025; 80048; 36415; 83735; 86308; 85610; 80076; 87081; 84484; 83880; 71260; 70491; 71045; 96375; 96374; 99284; U0003; Q9967; J0360; J1200; J2930; J2405

== ENCOUNTER 2022-09-22 05:09 | Emergency (ER) | payer OTHER ==
--- OUTSIDE RECORDS SUMMARY | 2022-09-22 05:31 | XMS REPORT | Continuity of Care Document ---
:[address] [facility] [place], [place] t Address [address] [place] [address] Care Team Providers Name Role Phone Urmila [...] Attending Clinician Unavailable Robbi Bal Attending Clinician [facility] Attending Clinician Unavailable Isaias Whiteside RN Attending Clinician Unavailable TOMY MARIE Attending Clinician Unavailable Reilly Means MD Attending Clinician Ofe Shields MD Attending Clinician Tomy Marie MD Attending Clinician Doctor Unassigned, [place] Attending Clinician Unavailable Bill GUO Attending Clinician Unavailable Bill Rose Attending Clinician CHARITY MCALLISTER Attending Clinician Unavailable Charity Mcallister MD Attending Clinician GADIEL KOEHLER Attending Clinician Unavailable Mike Lund Attending Clinician Unavailable NIKOLAI REEVES Attending Clinician Unavailable Eliseo Arce MD Attending Clinician Carol Ann IZQUIERDO, Sarai Lieberman Attending Clinician [phone] Ashly Pelletier MA Attending Clinician Unavailable Dagoberto Bass MD Attending Clinician [place] Evangelista Attending Clinician Lab, Ad[facility] Pob I Attending Clinician Unavailable Monica Rodas MA Attending Clinician Unavailable Agustina Ortiz MA Attending Clinician Unavailable Rody Maguire RN Attending Clinician Unavailable Remigio MD, Saraswathi V. Attending Clinician HEMATPOUR, BEVERLY Attending Clinician Unavailable Caridad HUITRONP, Gloria Attending Clinician Xiao RAMIREZ, Michael Corbin Attending Clinician Unavailable Team, [facility] Attending Clinician UnavailDO PORSHA Newell Attending Clinician Unavailable Gadiel Koehler MD Attending Clinician Tyrone JENKINS, Eveline Sierra Attending Clinician Eladio Colorado RN Attending Clinician Unavailable Geraldine SALGUERO, Leyda Attending Clinician [phone] Selvin RAMIREZ, Stefanie Attending Clinician Unavailable HOME MATTHEWS Admitting Clinician Unavailable ANETTE OLEA Admitting Clinician Unavailable TOMY MARIE Admitting Clinician Unavailable Frank JENKINS, Tomy Admitting Clinician Bill GUO Admitting Clinician Unavailable Lacey UrmilaBibianaFrancisco Kristen Admitting Clinician Unavailable Mike Lund Admitting Clinician Unavailable ELISEO ARCE Admitting Clinician Unavailable DO PORSHA STREETER Admitting Clinician Unavailable Payers Payer Name Policy Type Policy Number Effective Date Expiration Date S ource [facility] COMMUNITY PLAN [id number] 2012 STAR PLUS OON 00:00:00 [facility] [id number] 2019 DUAL COMPLETE HMO 00:00:00 [facility] STAR [id number] 2019 PLUS 00:00:00 MEDICAID [facility] [id number] 2020 00:00:00 [facility] [id number] 2019 [facility] [place] STAR 00:00:00 [employer] MEDICARE ADV [id number] 2019 2019 00:00:00 00:00:00 Problems Condition Condition Condition Status Onset Resolution Last Treating Co mments Source Name Details Category Date Date Treatment Clinician Date Dyspnea, Dyspnea, Disease Active Unive rs unspecifie unspecifie 02-11 it y of d type d type 00:00: [address] Branch Gastropare Gastropare Disease Active Overview : Methodi sis sis 4-[address] 00:00: [facility] note l might be different from the original. Added automatic ally from request for surgery [id number] Dysphagia Dysphagia Disease Active Overview: Methodi 4-[address] 00:00: g [facility] 00 note l might be different from the original. Added automatic ally from request for surgery [id number] CCL / EPS CCL / Diagnosis Active 2020-10-15 Memoria PVI EPS PVI 3-30 17:07:00 l ABLATION ABLATION 00:00: Patel n W/ CARTO / W/ CARTO / 00 GA / T GA / T Active 08/19/2020 [facility] Food Food Disease Active 2019-05 Methodi [...] N/V H[facility] hoxazole - Clear 00:00: [facility] trimetho DA Active SV [facility] prim - Clear 00:00: [facility] codeine DA Active SV N/V [facility] - Clear 00:00: [facility] Metoclop Propensi Active UT ramide ty to 12-12 Health adverse 00:00: reaction 00 s BUTORPHA DRUG Active Unknown-Cmnt Un matt NOL INGREDI 11-25 ity of 00:00: Medical Branch Butorpha Drug Active Unknown - Unive rs nol Allergy See comments 11-25 ity of 00:00: [facility] Branch Sulfamet Propensi Active [place] hoxazole ty [...] Date Source Natural father Diabetes [facility] Natural father Other - see comments [facility] Natural father [facility] Hy[facility] father [facility] Natural mother [facility] Social History Social Habit Start Date Stop Date Quantity Comments Source Gender identity 2020-10-06 Identifies as Method ist 15:23:56 female gender Hospital (finding) History SDOH [facility] Alcohol Frequency Hospita l History SDOH [facility] Alcohol Std Drinks Hospit al History SDOH [facility] Alcohol [facility] Sexual orientation [facility] History of Social 2022-08-26 2022-08-[address] function 00:00:00 00:00:00 Hospital Exposure to 2022-04-30 2022-05-10 Yes University of SARS-CoV-2 (event) 00:00:00 10:25:00 [facility] [place] Tobacco use and 2022-02-11 2022-02-11 Former smokeless Uni versity of exposure 00:00:00 00:00:00 tobacco user [facility] Tobacco Comment 2022-02-11 2022-02-11 Smokes approx 1-2 Un iversity of 00:00:00 00:00:00 cigarettes per [facility] day when she Branch smokes Alcohol intake 2020-12-08 2020-12-08 Current drinker [facility] 00:00:00 00:00:00 of [facility] (finding) Cigarettes smoked 2020-09-05 2020-09-[address] current (pack per 00:00:00 00:00:00 [facility] l day) - Reported Cigarette 2020-09-05 2020-09-05 [facility] pack-years 00:00:00 00:00:00 Hospital Alcohol Comment 2016-09-23 2016-09-23 rare [facility] 00:00:00 00:00:00 Hospital History of tobacco 2011-09-29 User of smokeless University of use 00:00:00 tobacco [facility] [place] Sex Ass[birth year] At [birth year] [facility] 00:00:00 00:00:00 Smoking Status Start Date Stop Date Source Ex-smoker 2022-02-11 00:00:2022-02-11 00:00:00 Universi ty of [facility] [place] Medications Ordered Filled Start Stop Current Ordering Indication Dosage Frequency Signature Comments Components Source Medication Medication Date Date Medication? Clinician (SIG) Name Name ravindra Yes [id number] Take one Univers ne-tenofovi 4-04 po daily ity of r alafen 00:00: [place] (DESCOVY) 00 Medical tablet Branch emtricbao Yes [id number] Take one Univers ne-tenofovi 4-04 po daily ity of r alafen 00:00: [place] (DESCOVY) 00 Medical tablet Branch potassium 2021-05 No 10meq 10 mEq, IV Univers chloride in 07-11 Piggyback, i ty of water 10 20:00: 22:00 ONCE, 1 [place] mEq/100 mL 00 :00 dose, On Medic al RTU 10 mEq [facility] 05/10/22 at 1400, Administer over 60 Minutes, 100 mL magnesium 2021-05 No 800mg 800 mg, Uni vers oxide 07-11 Oral, ity of (MAG-OX 20:00: 19:37 ONCE, 1 [place] 400) tablet 00 :00 dose, On Medi porfirio 800 mg [facility] 05/10/22 at 1400, Routine KCL 2021-05 No 40meq 40 mEq, Univers (KLOR-CON 07-11 Oral, ity of M20) tablet 19:15: 19:37 [place]CE[place] 1 [place] 40 mEq 00 :00 dose, On Medical [facility] 05/10/22 at 1315, JOE hydralAZINE 2021-05 No 10mg 10 mg, Uni vers (APRESOLINE 07-11 Slow IV ity of ) injection 18:45: 18:42 [place] 10 mg 00 :00 ONCE, 1 Medical dose, On Branch [facility] 05/10/22 at 1245, JOE NaCl 0.9% 2021-05 No 1000mL at 999 Uni vers (NS) bolus 07-11 mL/hr, ity of infusion 17:45: 20:00 1,000 mL, [place] 1,000 mL 00 :00 IV Medical Infusion, Branch ONCE, 1 dose, On [facility] 12/19/22 at 1145, JOE cefpodoxime 2021-05- No [id number] 100mg Take 1 Univers 100 mg 2-17 12-25 tablet by ity of tablet 00:00: 05:59 mouth in [place] 00 :00 the Medical morning Branch and 1 tablet in the evening. Do all this for 7 days. cefpodoxime 2021-05- No [id number] 100mg Take 1 Univers 100 mg 2-17 12-25 tablet by ity of tablet 00:00: 05:59 mouth in [place] 00 :00 the [facility] morning Branch and 1 tablet in the evening. Do all this for 7 days. cefpodoxime 2021-05- No [id number] 100mg Take 1 Univers 100 mg 2-17 12-25 tablet by ity of tablet 00:00: 05:59 mouth in [place] 00 :00 the [facility] morning Branch and 1 tablet [...] Infusion, Medical ONCE, 1 Branch dose, On [facility] 05/06/22 at 1800, JOE ketorolac 2021-05 No 15mg 15 mg, Unive rs (TORADOL) 2-15 12-15 Slow IV ity of injection 22:00: 22:19 Push, [place] 15 mg 00 :00 ONCE, 1 Medical dose, On Branch [facility] 05/06/22 at 1600, JOE NaCl 0.9% 2021-05- No 1000mL at 999 Uni vers (NS) bolus 2-15 12-15 mL/hr, ity of infusion 22:00: 23:41 1,000 mL, [place] 1,000 mL 00 :00 IV Medical Infusion, Branch ONCE, 1 dose, On [place] 05/06/22 at 1600, JOE ondansetron 2021-052- No 8mg 8 mg, Slow Univers (ZOFRAN 2-15 12-15 IV Push, ity of (PF)) 21:15: 22:19 ONCE, 1 [place] injection 8 00 :00 dose, On Medi porfirio mg [place] Branch 05/06/22 at 1515, JOE ondansetron 2021- Yes [id number] 1-2 U nivers 4 mg tablet 2-15 tablets ity o f 00:00: every 8 [place] 00 hours as Medical needed for Branch nausea benzonatate 2021-05 Yes [id number] 200mg Take 1 Univers 200 mg 2-15 capsule by ity of capsule 00:00: mouth 3 [place] 00 (three) Medical times Branch daily as needed for Cough. albuterol 2021-05 Yes [id number] 2{puff} Inhale 2 Univers 90 2-15 Puffs ity of mcg/actuati 00:00: every 4 [place] on inhaler 00 (four) Medical hours as Branch needed for Wheezing or Shortness of Breath. butalbital- 2021-05 Yes [id number] 1{tbl} Take 1 Univers acetaminoph 2-15 tablet by ity of en-caff 00:00: mouth [place] 50-325-40 00 every 4 Medical mg tablet (four) Branch hours as needed (headache) . ondansetron 2021-05 Yes [id number] 1-2 U nivers 4 mg tablet 2-15 tablets ity o f 00:00: every 8 [place] 00 hours as Medical needed for Branch nausea benzonatate 2021-05 Yes [id number] 200mg Take 1 Univers 200 mg 2-15 capsule by ity of capsule 00:00: mouth 3 [place] 00 (three) Medical times Branch daily as needed for Cough. albuterol 2021-05 Yes [id number] 2{puff} Inhale 2 Univers 90 2-15 Puffs ity of mcg/actuati 00:00: every 4 [place] on inhaler 00 (four) Medical hours as Branch needed for Wheezing or Shortness of Breath. butalbital- 2021-05 Yes [id number] 1{tbl} Take 1 Univers acetaminoph 2-15 tablet by ity of en-caff 00:00: mouth [place] 50-325-40 00 every 4 Medical mg tablet (four) Branch hours as needed (headache) . ondansetron 2021-05 Yes [id number] 1-2 U nivers 4 mg tablet 2-15 tablets ity o f 00:00: every 8 [place] 00 hours as Medical needed for Branch nausea benzonatate 2021-05 Yes [id number] 200mg Take 1 Univers 200 mg 2-15 capsule by ity of capsule 00:00: mouth 3 [place] 00 (three) Medical times Branch daily as needed for Cough. albuterol 2021-05 Yes [id number] 2{puff} Inhale 2 Univers 90 2-15 Puffs ity of mcg/actuati 00:00: every 4 [place] on inhaler 00 (four) Medical hours as Branch needed for Wheezing or Shortness of Breath. butalbital- 2021-05 Yes [id number] 1{tbl} Take 1 Univers acetaminoph 2-15 tablet by ity of en-caff 00:00: mouth [place] 50-325-40 00 every 4 Medical mg tablet (four) Branch hours as needed (headache) . ondansetron 2021-05 Yes [id number] 1-2 U nivers 4 mg tablet 2-15 tablets ity o f 00:00: every 8 [place] 00 hours as Medical needed for Branch nausea benzonatate 2021-05 Yes [id number] 200mg Take 1 Univers 200 mg 2-15 capsule by ity of capsule 00:00: mouth 3 00 (three) Medical times Branch daily as needed for Cough. albuterol 2021-05 Yes [id number] 2{puff} Inhale 2 Univers 90 2-15 Puffs ity of mcg/actuati 00:00: every 4 [place] on inhaler 00 (four) Medical hours as Branch needed for Wheezing or Shortness of Breath. butalbital- 2021-05 Yes [id number] 1{tbl} Take 1 Univers acetaminoph 2-15 tablet by ity of en-caff 00:00: mouth [place] 50-325-40 00 every 4 Medical mg tablet (four) Branch hours as needed (headache) . ondansetron 2021-05 Yes [id number] 1-2 U nivers 4 mg tablet 2-15 tablets ity o f 00:00: every 8 [place] 00 hours as Medical needed for Branch nausea benzonatate 2021-05 Yes [id number] 200mg Take 1 Univers 200 mg 2-15 capsule by ity of capsule 00:00: mouth 3 [place] 00 (three) Medical times Branch daily as needed for Cough. albuterol 2021-05 Yes [id number] 2{puff} Inhale 2 Univers 90 2-15 Puffs ity of mcg/actuati 00:00: every 4 [place] on inhaler 00 (four) Medical hours as Branch needed for Wheezing or Shortness of Breath. butalbital- 2021-05 Yes [id number] 1{tbl} Take 1 Univers acetaminoph 2-15 tablet by ity of en-caff 00:00: mouth [place] 50-325-40 00 every 4 Medical mg tablet (four) Branch hours as needed (headache) . ondansetron 2021-05 Yes [id number] 1-2 U nivers 4 mg tablet 2-15 tablets ity o f 00:00: every 8 [place] 00 hours as Medical needed for Branch nausea benzonatate 2021-05 Yes [id number] 200mg Take 1 Univers 200 mg 2-15 capsule by ity of capsule 00:00: mouth 3 00 (three) Medical times Branch daily as needed for Cough. albuterol 2021-05 Yes [id number] 2{puff} Inhale 2 Univers 90 2-15 Puffs ity of mcg/actuati 00:00: every 4 [place] on inhaler 00 (four) Medical hours as Branch needed for Wheezing or Shortness of Breath. butalbital- 2021-05 Yes [id number] 1{tbl} Take 1 Univers acetaminoph 2-15 tablet by ity of en-caff 00:00: mouth [place] 50-325-40 00 every 4 Medical mg tablet (four) Branch hours as needed (headache) . ondansetron 2021-05 Yes [id number] 1-2 U nivers 4 mg tablet 2-15 tablets ity o f 00:00: every 8 [place] 00 hours as Medical needed for Branch nausea benzonatate 2021-05 Yes [id number] 200mg Take 1 Univers 200 mg 2-15 capsule by ity of capsule 00:00: mouth 3 [place] 00 (three) Medical times Branch daily as needed for Cough. albuterol 2021-05 Yes [id number] 2{puff} Inhale 2 Univers 90 2-15 Puffs ity of mcg/actuati 00:00: every 4 [place] on inhaler 00 (four) Medical hours as Branch needed for Wheezing or Shortness of Breath. butalbital- 2021-05 Yes [id number] 1{tbl} Take 1 Univers acetaminoph 2-15 tablet by ity of en-caff 00:00: mouth [place] 50-325-40 00 every 4 Medical mg tablet (four) Branch hours as needed (headache) . ondansetron 2021-05 Yes [id number] 1-2 U nivers 4 mg tablet 2-15 tablets ity o f 00:00: every 8 [place] 00 hours as Medical needed for Branch nausea benzonatate 2021-05 Yes [id number] 200mg Take 1 Univers 200 mg 2-15 capsule by ity of capsule 00:00: mouth 3 [place] 00 (three) Medical times Branch daily as needed for Cough. albuterol 2021-05 Yes [id number] 2{puff} Inhale 2 Univers 90 2-15 Puffs ity of mcg/actuati 00:00: every 4 [place] on inhaler 00 (four) Medical hours as Branch needed for Wheezing or Shortness of Breath. butalbital- 2021-05 Yes [id number] 1{tbl} Take 1 Univers acetaminoph 2-15 tablet by ity of en-caff 00:00: mouth [place] 50-325-40 00 every 4 Medical mg tablet (four) Branch hours as needed (headache) . nirmatrelvi 2021-05- No [id number] 2{tbl} Take 2 Univers r-ritonavir 2-15 12-21 tablets by i ty of (PAXLOVID, 00:00: 05:59 mouth [place] EUA,) 300 00 :00 the Medical mg (150 mg morning Branch x 2)-100 mg and 2 tablet tablets in the evening. Do all this for 5 days. nirmatrelvi 2021-05- No [id number] 2{tbl} Take 2 Univers r-ritonavir 2-15 12-21 tablets by i ty of (PAXLOVID, 00:00: 05:59 [place] EUA[place] 300 00 :00 the Medical mg (150 mg morning Branch x 2)-100 mg and 2 tablet tablets in the evening. Do all this for 5 days. nirmatrelvi 2021-05- No [id number] 2{tbl} Take 2 Univers r-ritonavir 2-15 12-21 tablets by i ty of (PAXLOVID, 00:00: 05:59 [place] EUA[place] 300 00 :00 the Medical mg (150 mg morning Branch x 2)-100 mg and 2 tablet tablets in the evening. Do all this for 5 days. nirmatrelvi 2021-05- No [id number] 2{tbl} Take 2 Univers r-ritonavir 2-15 12-21 [...] 04/22/22 at 1645, Routine amoxicillin 2021-05 Yes [id number] 1{tbl} Take 1 Univers -clavulanat 2- [id number] tablet by i ty of e 875-125 00:00: mouth [place] mg per 00 every 12 Medical tablet (twelve) Branch hours. ondansetron 2021-05 Yes [id number] 4mg Take 1 Univers 4 mg 2- [id number] tablet by ity of disintegrat 00:00: mouth [place] ing tablet 00 every 8 Medica l (eight) Branch hours as needed for Nausea and Vomiting (N/V). amoxicillin 2021-05 Yes [id number] 1{tbl} Take 1 Univers -clavulanat 2-01 [id number] tablet by i ty of e 875-125 00:00: mouth [place] mg per 00 every 12 Medical tablet (twelve) Branch hours. ondansetron 2021-05 Yes [id number] 4mg Take 1 Univers 4 mg 2- [id number] tablet by ity of disintegrat 00:00: mouth [place] ing tablet 00 every 8 Medica l (eight) Branch hours as needed for Nausea and Vomiting (N/V). amoxicillin 2021-05 Yes [id number] 1{tbl} Take 1 Univers -clavulanat 2-01 [id number] tablet by i ty of e 875-125 00:00: mouth [place] mg per 00 every 12 Medical tablet (twelve) Branch hours. ondansetron 2021-05 Yes [id number] 4mg Take 1 Univers 4 mg 2-01 [id number] tablet by ity of disintegrat 00:00: mouth [place] ing tablet 00 every 8 Medica l (eight) Branch hours as needed for Nausea and Vomiting (N/V). amoxicillin 2021-05 Yes [id number] 1{tbl} Take 1 Univers -clavulanat 2-01 [id number] tablet by i ty of e 875-125 00:00: mouth [place] mg per 00 every 12 Medical tablet (twelve) Branch hours. ondansetron 2021-05 Yes [id number] 4mg Take 1 Univers 4 mg 2-01 [id number] tablet by ity of disintegrat 00:00: mouth [place] ing tablet 00 every 8 Medica l (eight) Branch hours as needed for Nausea and Vomiting (N/V). amoxicillin 2021-05 Yes [id number] 1{tbl} Take 1 Univers -clavulanat 2-01 [id number] tablet by i ty of e 875-125 00:00: mouth [place] mg per 00 every 12 Medical tablet (twelve) Branch hours. ondansetron 2021-05 Yes [id number] 4mg Take 1 Univers 4 mg 2-01 [id number] tablet by ity of disintegrat 00:00: mouth [place] ing tablet 00 every 8 Medica l (eight) Branch hours as needed for Nausea and Vomiting (N/V). amoxicillin 2021-05 Yes [id number] 1{tbl} Take 1 Univers -clavulanat 2-01 [id number] tablet by i ty of e 875-125 00:00: mouth [place] mg per 00 every 12 Medical tablet (twelve) Branch hours. ondansetron 2021-05 Yes [id number] 4mg Take 1 Univers 4 mg 2-01 [id number] tablet by ity of disintegrat 00:00: mouth [place] ing tablet 00 every 8 Medica l (eight) Branch hours as needed for Nausea and Vomiting (N/V). amoxicillin 2021-05 Yes [id number] 1{tbl} Take 1 Univers -clavulanat 2-01 [id number] tablet by i ty of e 875-125 00:00: mouth [place] mg per 00 every 12 Medical tablet (twelve) Branch hours. ondansetron 2021-05 Yes [id number] 4mg Take 1 Univers 4 mg 2- [id number] tablet by ity of disintegrat 00:00: mouth [place] ing tablet 00 every 8 Medica l (eight) Branch hours as needed for Nausea and Vomiting (N/V). amoxicillin 2021-05 Yes [id number] 1{tbl} Take 1 Univers -clavulanat 2-01 [id number] tablet by i ty of e 875-125 00:00: mouth [place] mg per 00 every 12 Medical tablet (twelve) Branch hours. ondansetron 2021-05 Yes [id number] 4mg Take 1 Univers 4 mg 2- [id number] tablet by ity of disintegrat 00:00: mouth [place] ing tablet 00 every 8 Medica l (eight) Branch hours as needed for Nausea and Vomiting (N/V). amoxicillin 2021-05 Yes [id number] 1{tbl} Take 1 Univers -clavulanat 2-01 [id number] tablet by i ty of e 875-125 00:00: mouth [place] mg per 00 every 12 Medical tablet (twelve) Branch hours. ondansetron 2021-05 Yes [id number] 4mg Take 1 Univers 4 mg 2-01 [id number] tablet by ity of disintegrat 00:00: mouth [place] ing tablet 00 every 8 Medica l (eight) Branch hours as needed for Nausea and Vomiting (N/V). amoxicillin 2021-05 Yes [id number] 1{tbl} Take 1 Univers -clavulanat 2-01 [id number] tablet by i ty of e 875-125 00:00: mouth [place] mg per 00 every 12 Medical tablet (twelve) Branch hours. ondansetron 2021-05 Yes [id number] 4mg Take 1 Univers 4 mg 2-01 [id number] tablet by ity of disintegrat 00:00: mouth [place] ing tablet 00 every 8 Medica l (eight) Branch hours as needed for Nausea and Vomiting (N/V). zoster 2021-05- No [id number] .5mL 0.5 mL by Univers vaccine, 0-05 03-15 9104 Intramuscu ity of recombinant 00:00: 04:59 lar route [place] (SHINGRIX, 00 :00 once now Medic al PF,) for 1 Branch injection dose. And repeat in 2-6 months zoster 2021-05- No [id number] .5mL 0.5 mL by Univers vaccine, 0-05 03- 9104 Intramuscu ity of recombinant 00:00: 04:59 lar route [place] (SHINGRIX, 00 :00 once now Medic al PF,) for 1 Branch injection dose. And repeat in 2-6 months zoster 2021-05- No [id number] .5mL 0.5 mL by Univers vaccine, 0-05 [...] o f 1 mg tablet 19:28: at [place] [address] bedtime. Medical Branch traZODone Yes 50mg Take 50 mg Un matt 100 mg 9-27 by mouth ity of tablet 19:28: at [place] [address] bedtime. Medical Branch hydralAZINE Yes 25mg Take [...] o f 1 mg tablet 19:28: at [place] [address] bedtime. Medical Branch traZODone 2021-0 Yes 50mg Take 50 mg Un matt 100 mg 9-27 by mouth ity of tablet 19:28: at [place] [address] bedtime. Medical Branch hydralAZINE 2021-0 Yes 25mg [...] o f 1 mg tablet 19:28: at [place] [address] bedtime. Medical Branch traZODone 2021-0 Yes 50mg Take 50 mg Un matt 100 mg 9-27 by mouth ity of tablet 19:28: at [place] [address] bedtime. Medical Branch hydralAZINE 2021-0 Yes 25mg [...] o f 1 mg tablet 19:28: at [place] [address] bedtime. Medical Branch traZODone 2021-0 Yes 50mg Take 50 mg Un matt 100 mg 9-27 by mouth ity of tablet 19:28: at [place] [address] bedtime. Medical Branch hydralAZINE 2021-0 Yes 25mg [...] o f 1 mg tablet 19:28: at [place] [address] bedtime. Medical Branch traZODone 2-0 Yes 50mg Take 50 mg Un matt 100 mg 9-27 by mouth ity of tablet 19:28: at [place] [address] bedtime. Medical Branch hydralAZINE 2-0 Yes 25mg [...] o f 1 mg tablet 19:28: at [place] [address] bedtime. Medical Branch traZODone 2021-0 Yes 50mg Take 50 mg Un matt 100 mg 9-27 by mouth ity of tablet 19:28: at [place] [address] bedtime. Medical Branch hydralAZINE 2021-0 Yes 25mg [...] o f 1 mg tablet 19:28: at [place] [address] bedtime. Medical Branch traZODone 2021-0 Yes 50mg Take 50 mg Un matt 100 mg 9-27 by mouth ity of tablet 19:28: at [place] [address] bedtime. Medical Branch hydralAZINE 2021-0 Yes 25mg [...] o f 1 mg tablet 19:28: at [place] [address] bedtime. Medical Branch traZODone 2021-0 Yes 50mg Take 50 mg Un matt 100 mg 9-27 by mouth ity of tablet 19:28: at [place] [address] bedtime. Medical Branch hydralAZINE 2021-0 Yes 25mg [...] o f 1 mg tablet 19:28: at [place] [address] bedtime. Medical Branch traZODone 2021-0 Yes 50mg Take 50 mg Un matt 100 mg 9-27 by mouth ity of tablet 19:28: at [place] [address] bedtime. Medical Branch hydralAZINE 2021-0 Yes 25mg [...] o f 1 mg tablet 19:28: at [place] [address] bedtime. Medical Branch traZODone 2021-0 Yes 50mg Take 50 mg Un matt 100 mg 9-27 by mouth ity of tablet 19:28: at [place] [address] bedtime. Medical Branch hydralAZINE 2021-0 Yes 25mg [...] 100 mg 04 (two) Medical tablet times [place] daily. amLODIPine 2021-0 Yes 10mg Take 10 mg U nivers (NORVASC) 9-27 by mouth ity of 10 mg 19:28: daily. [place] tablet 04 Medical Branch clonazePAM 2021-0 Yes 1mg Take 1 mg Un matt (KLONOPIN) 9-27 by mouth ity o f 1 mg tablet 19:28: at [place] [address] bedtime. Medical Branch traZODone 2021-0 Yes 50mg Take 50 mg Un matt 100 mg 9-27 by mouth ity of tablet 19:28: at [place] [address] bedtime. Medical Branch hydralAZINE 2021-0 Yes 25mg [...] 100 mg 04 (two) Medical tablet times [place] daily. amLODIPine 2021-0 Yes 10mg Take 10 mg U nivers (NORVASC) 9-27 by mouth ity of 10 mg 19:28: daily. [place] tablet 04 Medical Branch clonazePAM 2021-0 Yes 1mg Take 1 mg Un matt (KLONOPIN) 9-27 by mouth ity o f 1 mg tablet 19:28: at [place] [address] bedtime. Medical Branch traZODone 2021-0 Yes 50mg Take 50 mg Un matt 100 mg 9-27 by mouth ity of tablet 19:28: at [place] [address] bedtime. Medical Branch hydralAZINE 2021-0 Yes 25mg [...] o f 1 mg tablet 19:28: at [place] [address] bedtime. Medical Branch traZODone 2021-0 Yes 50mg Take 50 mg Un matt 100 mg 9-27 by mouth ity of tablet 19:28: at [place] [address] bedtime. Medical Branch hydralAZINE 2021-0 Yes 25mg [...] 100 mg 04 (two) Medical tablet times [place] daily. amLODIPine 2021-0 Yes 10mg Take 10 mg U nivers (NORVASC) 9-27 by mouth ity of 10 mg 19:28: daily. [place] tablet 04 Medical Branch clonazePAM 2021-0 Yes 1mg Take 1 mg Un matt (KLONOPIN) 9-27 by mouth ity o f 1 mg tablet 19:28: at [place] [address] bedtime. Medical Branch traZODone 2021-0 Yes 50mg Take 50 mg Un matt 100 mg 9-27 by mouth ity of tablet 19:28: at [place] [address] bedtime. Medical Branch hydralAZINE 2021-0 Yes 25mg [...] o f 1 mg tablet 19:28: at [place] [address] bedtime. Medical Branch traZODone 2-0 Yes 50mg Take 50 mg Un matt 100 mg 9-27 by mouth ity of tablet 19:28: at [place] [address] bedtime. Medical Branch hydralAZINE 2-0 Yes 25mg [...] o f 1 mg tablet 19:28: at [place] [address] bedtime. Medical Branch traZODone 2022-0 Yes 50mg Take 50 mg Un matt 100 mg 9-27 by mouth ity of tablet 19:28: at [place] [address] bedtime. Medical Branch hydralAZINE 2-0 Yes 25mg [...] o f 1 mg tablet 19:28: at [place] [address] bedtime. Medical Branch traZODone 2-0 Yes 50mg Take 50 mg Un matt 100 mg 9-27 by mouth ity of tablet 19:28: at [place] [address] bedtime. Medical Branch hydralAZINE 2021-0 Yes 25mg [...] 100 mg 04 (two) Medical tablet times [place] daily. amLODIPine 2-0 Yes 10mg Take 10 mg U nivers (NORVASC) 9-27 by mouth ity of 10 mg 19:28: daily. [place] tablet 04 Medical Branch clonazePAM 2-0 Yes 1mg Take 1 mg Un matt (KLONOPIN) 9-27 by mouth ity o f 1 mg tablet 19:28: at [place] [address] bedtime. Medical Branch traZODone 2-0 Yes 50mg Take 50 mg Un matt 100 mg 9-27 by mouth ity of tablet 19:28: at [place] 04 bedtime. Medical [place] cefpodoxime 2021-0 2021- No [id number] 200mg Take 1 [facility] 200 mg 02-16 tablet by ity of tablet 00:00: 04:59 mouth in [place] 00 :00 the Medical morning Branch and 1 tablet in the evening. Do all this for 3 days. cefpodoxime 2021-0 2021- No [id number] 200mg Take 1 [facility] 200 mg 02-16 [...] 00 :00 dose, On Medi porfirio mg [facility] 02/15/22 at 0400, Routine hydroCHLORO 0 Yes 25mg 25 mg, [facility] ers thiazide 9-25 Oral, ity of (ESIDRIX) 14:00: DAILY, [place] capsule 25 00 First dose Med ical mg on [facility] 02/14/22 at 0900, Until Discontinu ed, Routine butalbital- Yes 1{tbl} 1 tablet, [facility] acetaminoph 24 Oral, ity of en-caff 18:46: Q6HPRN, [place] (ESGIC) 06 Starting Medical 50-325-40 on [facility] Branch mg tablet 1 02/13/22 at tablet 1346, Until Discontinu ed, Routine, headaches dicyclomine 0 Yes 10mg 10 mg, Univ ers (BENTYL) 9-24 Oral, QID, ity o f capsule 10 17:00: First dose [place] mg 00 on [facility] 02/13/22 at Branch 1200, Until Discontinu [...] 00 :00 dose, On Medic al mg [facility] Branch 02/11/22 at 1645, Routine nitroglycer 0 Yes .4mg 0.4 mg, Uni vers in 02-11 Sublingual ity of (NITROSTAT) 21:31: , Q5MIN [place] sublingual 20 PRN, Medical tablet 0.4 Starting Branc h mg on [facility] 02/11/22 at 1631, Until Discontinu ed, [...] (MYCOLOG) 19:00: dose on [place] cream 00 [facility] 02/11/22 at Branch 1400, Until Discontinu ed, Routine busPIRone 0 Yes 30mg 30 mg, Univer s (BUSPAR) 02-11 Oral, BID, ity o f tablet 30 18:00: First dose [place] mg 00 on [facility] 02/11/22 at Branch 1300, Until Discontinu ed, Routine raltegravir 0 Yes 400mg 400 mg, Un matt (ISENTRESS) 02-11 Oral, BID, it y of tablet 400 18:00: First dose [place] mg 00 on [facility] Medical 02/11/22 at Branch 1300, Until Discontinu ed, JOE metoprolol 0 Yes 100mg 100 mg, Uni vers tartrate 02-11 Oral, BID, ity o f (LOPRESSOR) 18:00: First dose [place] tablet 100 00 on [facility] Medical mg 02/11/22 at Branch 1300, Until Discontinu ed, Routine lisinopriL 0 Yes 40mg 40 mg, Unive rs (PRINIVIL,Z 02-11 Oral, BID, it y of ESTRIL) 18:00: [place] tablet 40 00 on [facility] Medical mg 02/11/22 at Branch 1300, Until Discontinu ed, Routine emtricitabi 0 Yes 1{tbl} 1 tablet, [facility] ne-tenofovi 02-11 Oral, ity of r alafen 18:00: DAILY, [place] (DESCOVY) 00 First dose Medi porfirio tablet 1 on [facility] tablet 02/11/22 at 1300, Until Discontinu ed, Routine ipratropium 0 Yes .5mg 0.5 mg, Uni vers (ATROVENT) 02-11 Inhalation ity of 0.02 % 17:57: , QIDPRN, [place] nebulizer 10 Starting Medica l solution on [facility] Branch 0.5 mg 02/11/22 at 1257, Until Discontinu ed, Routine, Wheezing, Shortness of Breath amLODIPine 0 Yes 10mg 10 mg, Unive rs (NORVASC) 02-11 Oral, ity of tablet 10 17:30: DAILY, [place] mg 00 First dose Medical (after [place] last modificati on) on [facility] 02/11/22 at 1230, Until Discontinu ed, Routine hydrALAZINE 2021- No 25mg 25 mg, Uni vers (APRESOLINE 02-11 Oral, ity of ) tablet 25 17:30: 12:54 DAILY, [place] mg 00 :55 First dose Medical (after [place] last modificati on) on [facility] 02/11/22 at 1230, Until Discontinu ed, [...] 02-11 Oral, ity of (TYLENOL 14:06: 17:37 [id number] [place] #3) 300-30 19 :24 Starting Medic al mg tablet 1 on [place] Branch tablet 02/11/22 at 0906, Until Tue02/12/22 at 1237, Routine, Pain (scale 4-6) sennosides- 0 Yes 1{tbl} 1 tablet, Univers docusate 02-11 Oral, ity of sodium 14:06: QDAILYPRN, [place] (SENOKOT-S) 09 Starting Medi porfirio 8.6-50 mg on [facility] Branch per tablet 02/11/22 at 1 tablet 0906, Until Discontinu ed, Routine, Constipati on ondansetron 0 Yes 4mg 4 mg, Slow Univers (ZOFRAN 02-11 IV Push, ity of (PF)) 14:05: Q6HPRNMagnolia, [place] injection 4 59 Starting Medi porfirio mg on [place] Branch 02/11/22 at 0905, Until Discontinu ed, Routine, Nausea and Vomiting (N/V) acetaminoph 2021-0 Yes 650mg 650 mg, Un matt en 02-11 Oral, ity of (TYLENOL) 14:04: Q6HPRNMagnolia, [place] tablet 650 37 Starting Medic al [...] ity of ) 25 mg 09:10: daily. [facility] Branch amLODIPine Yes 10mg Take 10 mg U nivers (NORVASC) 02-11 by mouth ity of 10 mg 09:10: daily. [facility] [address] [facility] Branch piperacilli 2021- No 3.375g [...] of therapy: 72 hours iopamidol 2021- No [id number] 60mL 60 mL, Univers (ISOVUE 02-11 Intravenou [...] 02/11/22 at 0015, JOE emtricitabi 0 Yes [id number] Take one Univers ne-tenofovi 9-12 po daily ity of r alafen 00:00: [place] (DESCOVY) 00 Medical tablet Branch emtricitabi Yes [id number] Take one Univers ne-tenofovi 9-12 po daily ity of r alafen 00:00: [place] (DESCOVY) 00 Medical tablet Branch emtricitabi Yes [id number] Take one Univers ne-tenofovi 9-12 po daily ity of r alafen 00:00: [place] (DESCOVY) 00 Medical tablet Branch emtricitabi Yes [id number] Take one Univers ne-tenofovi 9-12 po daily ity of r alafen 00:00: [place] (DESCOVY) 00 Medical tablet Branch emtricitabi Yes [id number] Take one Univers ne-tenofovi 9-12 po daily ity of r alafen 00:00: [place] (DESCOVY) 00 Medical tablet Branch emtricitabi Yes [id number] Take one Univers ne-tenofovi 9-12 po daily ity of r alafen 00:00: [place] (DESCOVY) 00 Medical tablet Branch emtricitabi Yes [id number] Take one Univers ne-tenofovi 9-12 po daily ity of r alafen 00:00: [place] (DESCOVY) 00 Medical tablet Branch [facility] [place] [id number] Take one Univers ne-tenofovi 9-12 po daily ity of r alafen 00:00: [place] (DESCOVY) 00 Medical tablet Branch emtricita Yes [id number] Take one Univers ne-tenofovi 9-12 po daily ity of r alafen 00:00: [place] (DESCOVY) 00 Medical tablet Branch emtricita Yes [id number] Take one Univers ne-tenofovi 9-12 po daily ity of r alafen 00:00: [place] (DESCOVY) 00 Medical tablet Branch emtricita Yes [id number] Take one Univers ne-tenofovi 9-12 po daily ity of r alafen 00:00: [place] (DESCOVY) 00 Medical tablet Branch [facility] [id number] Take one Univers ne-tenofovi 9-12 po daily ity of r alafen 00:00: [place] (DESCOVY) 00 Medical tablet Branch [facility] [id number] Take one Univers ne-tenofovi 9-12 po daily ity of r alafen 00:00: [place] (DESCOVY) 00 Medical tablet Branch emtricita Yes [id number] Take one Univers ne-tenofovi 9-12 po daily ity of r alafen 00:00: [place] (DESCOVY) 00 Medical tablet Branch emtricita Yes [id number] Take one Univers ne-tenofovi 9-12 po daily ity of r alafen 00:00: [place] (DESCOVY) 00 Medical tablet Branch emtricita Yes [id number] Take one Univers ne-tenofovi 9-12 po daily ity of r alafen 00:00: [place] (DESCOVY) 00 Medical tablet Branch emtricita Yes [id number] Take one Univers ne-tenofovi 9-12 po daily ity of r alafen 00:00: [place] (DESCOVY) 00 Medical tablet Branch emtricitabi 0 2022- No [id number] Take one Univers ne-tenofovi 9-12 04-04 po daily ity of r alafen 00:00: 00:00 [place] (DESCOVY) 00 :00 Medical tablet Branch emtricitabi 2021-0 3- No [id number] Take one Univers ne-tenofovi 02-01 po daily ity of r alafen 00:00: 00:00 [place] (DESCOVY) 00 :00 Medical tablet Branch naproxen 2021-0 Yes [id number] 500mg Take 1 U nivers (NAPROSYN) 7-24 tablet by ity of 500 mg 00:00: mouth in [place] tablet 00 the Medical morning Branch and 1 tablet in the evening. Take with meals. methocarbam 2021-0 Yes [id number] 500mg Take 1 Univers oL 500 mg 7-24 tablet by ity o f tablet 00:00: mouth 4 [place] ([facility]) Medical times [place] daily. naproxen 2021-0 Yes [id number] 500mg Take 1 U nivers (NAPROSYN) 7-24 tablet by ity of 500 mg 00:00: mouth in [place] tablet 00 the Medical morning Branch and 1 tablet in the evening. Take with meals. methocarbam 2021-0 Yes [id number] 500mg Take 1 Univers oL 500 mg 7-24 tablet by ity o f tablet 00:00: mouth 4 ([facility]) Medical times [place] daily. naproxen 2021-0 Yes [id number] 500mg Take 1 U nivers (NAPROSYN) 7-24 tablet by ity of 500 mg 00:00: mouth in [place] tablet 00 the Medical morning Branch and 1 tablet in the evening. Take with meals. methocarbam 2021-0 Yes [id number] 500mg Take 1 Univers oL 500 mg 7-24 tablet by ity o f tablet 00:00: mouth 4 [place] ([facility]) Medical times [place] daily. naproxen 2021-0 2- No [id number] 500mg Take 1 Univers (NAPROSYN) 7-24 10-14 tablet by ity of 500 mg 00:00: 00:00 mouth in [place] tablet 00 :00 the Medical morning Branch and 1 tablet in the evening. Take with meals. methocarbam 2021-0 2- No [id number] 500mg Take 1 Univers oL 500 mg 7-24 10-14 tablet by ity of tablet 00:00: 00:00 mouth 4 [place] 00 :00 (four) Medical times Branch daily. naproxen 2021- No [id number] 500mg Take 1 Univers (NAPROSYN) 12-13- tablet by ity of 500 mg 00:00: 00:00 mouth in [place] tablet 00 :00 the Medical morning Branch and 1 tablet in the evening. Take with meals. methocarbam 2021- No [id number] 500mg Take 1 Univers oL 500 mg [...] by ity of tablet 09:11: 00:00 mouth [place] 57 :00 daily. Medical Branch apixaban No 5mg Take 5 mg Uni vers (ELIQUIS) 5 11-20 by mouth 2 i ty of mg tablet 09:11: 00:00 (two) [place] 35 :00 times Medical daily. Branch traZODONE 2021- No Take by [facility] ers (DESYREL) 11-20 mouth at ity o f 10 mg/mL 09:10: 00:00 bedtime. [place] oral 28 :00 Medical suspension Branch hydralAZINE Yes 25mg Take 25 mg Univers (APRESOLINE 11-20 by mouth ity of ) 25 mg 08:47: daily. [place] tablet 47 Medical Branch cephALEXin 2021- No [id number] 500mg Take 1 Univers (KEFLEX) 10-24 capsule [...] Indication s: acute pain buPROPion 0 Yes [id number] 150mg Take 1 U nivers XL 4-12 tablet by ity of (WELLBUTRIN 00:00: mouth [place] XL) 150 mg 00 daily. Medical 24 hr Branch tablet busPIRone 2021-0 Yes [id number] 30mg Take 1 Un matt 30 mg 4-12 tablet by ity of tablet 00:00: mouth 2 [place] 00 (two) Medical times Branch daily. SERTraline 2021-0 Yes [id number] 200mg Take 2 Univers 100 mg 4-12 tablets by ity of tablet 00:00: mouth [place] 00 daily. Medical Branch buPROPion Yes [id number] 150mg Take 1 U nivers XL 4-12 tablet by ity of (WELLBUTRIN 00:00: mouth [place] XL) 150 mg 00 daily. Medical 24 hr Branch tablet busPIRone 0 Yes [id number] 30mg Take 1 Un matt 30 mg 4-12 tablet by ity of tablet 00:00: mouth 2 [place] 00 (two) Medical times Branch daily. SERTraline 0 Yes [id number] 200mg Take 2 Univers 100 mg 4-12 tablets by ity of tablet 00:00: mouth [place] 00 daily. Medical Branch buPROPion 2021-0 Yes [id number] 150mg Take 1 U nivers XL 4-12 tablet by ity of (WELLBUTRIN 00:00: mouth [place] XL) 150 mg 00 daily. Medical 24 hr Branch tablet busPIRone 2021-0 Yes [id number] 30mg Take 1 Un matt 30 mg 4-12 tablet by ity of tablet 00:00: mouth 2 [place] 00 (two) Medical times Branch daily. SERTraline 2021-0 Yes [id number] 200mg Take 2 Univers 100 mg 4-12 tablets by ity of tablet 00:00: mouth [place] 00 daily. Medical Branch buPROPion 2021-0 Yes [id number] 150mg Take 1 U nivers XL 4-12 tablet by ity of (WELLBUTRIN 00:00: mouth [place] XL) 150 mg 00 daily. Medical 24 hr Branch tablet busPIRone 2021-0 Yes [id number] 30mg Take 1 Un matt 30 mg 4-12 tablet by ity of tablet 00:00: mouth 2 [place] 00 (two) Medical times Branch daily. SERTraline 2021-0 Yes [id number] 200mg Take 2 Univers 100 mg 4-12 tablets by ity of tablet 00:00: mouth [place] 00 daily. Medical Branch buPROPion 2021-0 Yes [id number] 150mg Take 1 U nivers XL 4-12 tablet by ity of (WELLBUTRIN 00:00: mouth [place] XL) 150 mg 00 daily. Medical 24 hr Branch tablet busPIRone 2021-0 Yes [id number] 30mg Take 1 Un matt 30 mg 4-12 tablet by ity of tablet 00:00: mouth 2 [place] 00 (two) Medical times Branch daily. SERTraline 2021-0 Yes [id number] 200mg Take 2 Univers 100 mg 4-12 tablets by ity of tablet 00:00: mouth [place] 00 daily. Medical Branch buPROPion 2021-0 Yes [id number] 150mg Take 1 U nivers XL 4-12 tablet by ity of (WELLBUTRIN 00:00: mouth [place] XL) 150 mg 00 daily. Medical 24 hr Branch tablet busPIRone 2021-0 Yes [id number] 30mg Take 1 Un matt 30 mg 4-12 tablet by ity of tablet 00:00: mouth 2 [place] 00 (two) Medical times Branch daily. SERTraline 2021-0 Yes [id number] 200mg Take 2 Univers 100 mg 4-12 tablets by ity of tablet 00:00: mouth [place] 00 daily. Medical Branch buPROPion 2021-0 Yes [id number] 150mg Take 1 U nivers XL 4-12 tablet by ity of (WELLBUTRIN 00:00: mouth [place] XL) 150 mg 00 daily. Medical 24 hr Branch tablet busPIRone 2021-0 Yes [id number] 30mg Take 1 Un matt 30 mg 4-12 tablet by ity of tablet 00:00: mouth 2 [place] 00 (two) Medical times Branch daily. SERTraline 2021-0 Yes [id number] 200mg Take 2 Univers 100 mg 4-12 tablets by ity of tablet 00:00: mouth [place] 00 daily. Medical Branch buPROPion 2021-0 Yes [id number] 150mg Take 1 U nivers XL 4-12 tablet by ity of (WELLBUTRIN 00:00: mouth [place] XL) 150 mg 00 daily. Medical 24 hr Branch tablet busPIRone 2021-0 Yes [id number] 30mg Take 1 Un matt 30 mg 4-12 tablet by ity of tablet 00:00: mouth 2 00 (two) Medical times Branch daily. SERTraline 2021-0 Yes [id number] 200mg Take 2 Univers 100 mg 4-12 tablets by ity of tablet 00:00: mouth [place] 00 daily. Medical Branch buPROPion 2021-0 Yes [id number] 150mg Take 1 U nivers XL 4-12 tablet by ity of (WELLBUTRIN 00:00: mouth [place] XL) 150 mg 00 daily. Medical 24 hr Branch tablet busPIRone 2021-0 Yes [id number] 30mg Take 1 Un matt 30 mg 4-12 tablet by ity of tablet 00:00: mouth 2 (two) Medical times Branch daily. SERTraline 2021-0 Yes [id number] 200mg Take 2 Univers 100 mg 4-12 tablets by ity of tablet 00:00: mouth [place] 00 daily. Medical Branch buPROPion 2021-0 Yes [id number] 150mg Take 1 U nivers XL 4-12 tablet by ity of (WELLBUTRIN 00:00: mouth [place] XL) 150 mg 00 daily. Medical 24 hr Branch tablet busPIRone 2021-0 Yes [id number] 30mg Take 1 Un matt 30 mg 4-12 tablet by ity of tablet 00:00: mouth 2 (two) Medical times Branch daily. SERTraline 2021-0 Yes [id number] 200mg Take 2 Univers 100 mg 4-12 tablets by ity of tablet 00:00: mouth [place] 00 daily. Medical Branch buPROPion 2021-0 Yes [id number] 150mg Take 1 U nivers XL 4-12 tablet by ity of (WELLBUTRIN 00:00: mouth [place] XL) 150 mg 00 daily. Medical 24 hr Branch tablet busPIRone 2021-0 Yes [id number] 30mg Take 1 Un matt 30 mg 4-12 tablet by ity of tablet 00:00: mouth 2 [place] 00 (two) Medical times Branch daily. SERTraline 2021-0 Yes [id number] 200mg Take 2 Univers 100 mg 4-12 tablets by ity of tablet 00:00: mouth [place] 00 daily. Medical Branch buPROPion 2021-0 Yes [id number] 150mg Take 1 U nivers XL 4-12 tablet by ity of (WELLBUTRIN 00:00: mouth [place] XL) 150 mg 00 daily. Medical 24 hr Branch tablet busPIRone 2021-0 Yes [id number] 30mg Take 1 Un matt 30 mg 4-12 tablet by ity of tablet 00:00: mouth 2 [place] 00 (two) Medical times Branch daily. SERTraline 0 Yes [id number] 200mg Take 2 Univers 100 mg 4-12 tablets by ity of tablet 00:00: mouth [place] 00 daily. Medical Branch buPROPion 0 Yes [id number] 150mg Take 1 U nivers XL 4-12 tablet by ity of (WELLBUTRIN 00:00: mouth [place] XL) 150 mg 00 daily. Medical 24 hr Branch tablet busPIRone 2021-0 Yes [id number] 30mg Take 1 Un matt 30 mg 4-12 tablet by ity of tablet 00:00: mouth 2 [place] 00 (two) Medical times Branch daily. SERTraline 2021-0 Yes [id number] 200mg Take 2 Univers 100 mg 4-12 tablets by ity of tablet 00:00: mouth [place] 00 daily. Medical Branch buPROPion 2021-0 Yes [id number] 150mg Take 1 U nivers XL 4-12 tablet by ity of (WELLBUTRIN 00:00: mouth [place] XL) 150 mg 00 daily. Medical 24 hr Branch tablet busPIRone 2021-0 Yes [id number] 30mg Take 1 Un matt 30 mg 4-12 tablet by ity of tablet 00:00: mouth 2 [place] 00 (two) Medical times Branch daily. SERTraline 2021-0 Yes [id number] 200mg Take 2 Univers 100 mg 4-12 tablets by ity of tablet 00:00: mouth [place] 00 daily. Medical Branch buPROPion 2021-0 Yes [id number] 150mg Take 1 U nivers XL 4-12 tablet by ity of (WELLBUTRIN 00:00: mouth [place] XL) 150 mg 00 daily. Medical 24 hr Branch tablet busPIRone 2022-0 Yes [id number] 30mg Take 1 Un matt 30 mg 4-12 tablet by ity of tablet 00:00: mouth 2 [place] 00 (two) Medical times Branch daily. SERTraline 2021-0 Yes [id number] 200mg Take 2 Univers 100 mg 4-12 tablets by ity of tablet 00:00: mouth [place] 00 daily. Medical Branch buPROPion 0 Yes [id number] 150mg Take 1 U nivers XL 4-12 tablet by ity of (WELLBUTRIN 00:00: mouth [place] XL) 150 mg 00 daily. Medical 24 hr Branch tablet busPIRone 2021-0 Yes [id number] 30mg Take 1 Un matt 30 mg 4-12 tablet by ity of tablet 00:00: mouth 2 [place] 00 (two) Medical times Branch daily. SERTraline 0 Yes [id number] 200mg Take 2 Univers 100 mg 4-12 tablets by ity of tablet 00:00: mouth [place] 00 daily. Medical Branch buPROPion 0 Yes [id number] 150mg Take 1 U nivers XL 4-12 tablet by ity of (WELLBUTRIN 00:00: mouth [place] XL) 150 mg 00 daily. Medical 24 hr Branch tablet busPIRone 0 Yes [id number] 30mg Take 1 Un matt 30 mg 4-12 tablet by ity of tablet 00:00: mouth 2 [place] 00 (two) Medical times Branch daily. SERTraline 0 Yes [id number] 200mg Take 2 Univers 100 mg 4-12 tablets by ity of tablet 00:00: mouth [place] 00 daily. Medical Branch buPROPion 0 Yes [id number] 150mg Take 1 U nivers XL 4-12 tablet by ity of (WELLBUTRIN 00:00: mouth [place] XL) 150 mg 00 daily. Medical 24 hr Branch tablet busPIRone 2021-0 Yes [id number] 30mg Take 1 Un matt 30 mg 4-12 tablet by ity of tablet 00:00: mouth 2 [place] 00 (two) Medical times Branch daily. SERTraline 2021-0 Yes [id number] 200mg Take 2 Univers 100 mg 4-12 tablets by ity of tablet 00:00: mouth [place] 00 daily. Medical Branch buPROPion 2021-0 Yes [id number] 150mg Take 1 U nivers XL 4-12 tablet by ity of (WELLBUTRIN 00:00: mouth [place] XL) 150 mg 00 daily. Medical 24 hr Branch tablet busPIRone 2021-0 Yes [id number] 30mg Take 1 Un matt 30 mg 4-12 tablet by ity of tablet 00:00: mouth 2 [place] 00 (two) Medical times Branch daily. SERTraline 2021-0 Yes [id number] 200mg Take 2 Univers 100 mg 4-12 tablets by ity of tablet 00:00: mouth [place] 00 daily. Medical Branch buPROPion 2021-0 Yes [id number] 150mg Take 1 U nivers XL 4-12 tablet by ity of (WELLBUTRIN 00:00: mouth [place] XL) 150 mg 00 daily. Medical 24 hr Branch tablet busPIRone 2021-0 Yes [id number] 30mg Take 1 Un matt 30 mg 4-12 tablet by ity of tablet 00:00: mouth 2 [place] 00 (two) Medical times Branch daily. SERTraline 2021-0 Yes [id number] 200mg Take 2 Univers 100 mg 4-12 tablets by ity of tablet 00:00: mouth [place] 00 daily. Medical Branch raltegravir 2021-0 Yes [id number] 400mg Take 1 Univers (ISENTRESS) 3-28 tablet by ity of 400 mg 00:00: mouth 2 [place] tablet 00 (two) Medical times Branch daily. raltegravir 2021-0 Yes [id number] 400mg Take 1 Univers (ISENTRESS) 3-28 tablet by ity of 400 mg 00:00: mouth 2 [place] tablet 00 (two) Medical times Branch daily. raltegravir 2021-0 Yes [id number] 400mg Take 1 Univers (ISENTRESS) 3-28 tablet by ity of 400 mg 00:00: mouth 2 [place] tablet 00 (two) Medical times Branch daily. raltegravir 202-0 Yes [id number] 400mg Take 1 Univers (ISENTRESS) 3-28 tablet by ity of 400 mg 00:00: mouth 2 [place] tablet 00 (two) Medical times Branch daily. raltegravir 2021-0 Yes [id number] 400mg Take 1 Univers (ISENTRESS) 3-28 tablet by ity of 400 mg 00:00: mouth 2 [place] tablet 00 (two) Medical times Branch daily. raltegravir 2022-0 Yes [id number] 400mg Take 1 Univers (ISENTRESS) 3-28 tablet by ity of 400 mg 00:00: mouth 2 [place] tablet 00 (two) Medical times Branch daily. raltegravir 2022-0 Yes [id number] 400mg Take 1 Univers (ISENTRESS) 3-28 tablet by ity of 400 mg 00:00: mouth 2 [place] tablet 00 (two) Medical times Branch daily. raltegravir 2-0 Yes [id number] 400mg Take 1 Univers (ISENTRESS) 3-28 tablet by ity of 400 mg 00:00: mouth 2 [place] tablet 00 (two) Medical times Branch daily. raltegravir 2-0 Yes [id number] 400mg Take 1 Univers (ISENTRESS) 3-28 tablet by ity of 400 mg 00:00: mouth 2 [place] tablet 00 (two) Medical times Branch daily. raltegravir 2-0 Yes [id number] 400mg Take 1 Univers (ISENTRESS) 3-28 tablet by ity of 400 mg 00:00: mouth 2 [place] tablet 00 (two) Medical times Branch daily. raltegravir 2-0 Yes [id number] 400mg Take 1 Univers (ISENTRESS) 3-28 tablet by ity of 400 mg 00:00: mouth 2 [place] tablet 00 (two) Medical times Branch daily. raltegravir 2-0 Yes [id number] 400mg Take 1 Univers (ISENTRESS) 3-28 tablet by ity of 400 mg 00:00: mouth 2 [place] tablet 00 (two) Medical times Branch daily. raltegravir 2022-0 Yes [id number] 400mg Take 1 Univers (ISENTRESS) 3-28 tablet by ity of 400 mg 00:00: mouth 2 [place] tablet 00 (two) Medical times Branch daily. raltegravir 2022-0 Yes [id number] 400mg Take 1 Univers (ISENTRESS) 3-28 tablet by ity of 400 mg 00:00: mouth 2 [place] tablet 00 (two) Medical times Branch daily. raltegravir 2022-0 Yes [id number] 400mg Take 1 Univers (ISENTRESS) 3-28 tablet by ity of 400 mg 00:00: mouth 2 [place] tablet 00 (two) Medical times Branch daily. raltegravir 2022-0 Yes [id number] 400mg Take 1 Univers (ISENTRESS) 3-28 tablet by ity of 400 mg 00:00: mouth 2 [place] tablet 00 (two) Medical times Branch daily. raltegravir 2021-0 Yes [id number] 400mg Take 1 Univers (ISENTRESS) 3-28 tablet by ity of 400 mg 00:00: mouth 2 [place] tablet 00 (two) Medical times Branch daily. raltegravir 2021-0 Yes [id number] 400mg Take 1 Univers (ISENTRESS) 3-28 tablet by ity of 400 mg 00:00: mouth 2 [place] tablet 00 (two) Medical times Branch daily. raltegravir 0 Yes [id number] 400mg Take 1 [facility] (ISENTRESS) 3-28 tablet by ity of 400 mg 00:00: mouth 2 [place] tablet 00 (two) Medical times Branch daily. raltegravir 0 Yes [id number] 400mg Take 1 [facility] (ISENTRESS) 3-28 tablet by ity of 400 mg 00:00: mouth 2 [place] tablet 00 (two) Medical times Branch daily. LORazepam 1 2021- No [id number] 1mg Take 1 Univers mg tablet 3-10 [...] times a tablet day. emtricitabi 2021- No [id number] Take one [facility] ne-tenofovi 1-20 09-12 po daily ity of r alafen 00:00: 00:00 [place] (DESCOVY) 00 :00 Medical tablet Branch metoprolol 0 Yes [id number] Take 1 [facility] tartrate 7-26 tablet Health (Lopressor) 00:00: (100 mg 100 MG 00 total) by tablet mouth 2 (two) times a day AND 0.5 tablets (50 mg total) every night. metoprolol Yes [id number] Take 1 [place] tartrate 7-26 tablet Health [...] (affected area in groin) hydrALAZINE Yes 50mg [id number] Take 50 mg [facility] (APRESOLINE 7-19 [id number] [address] mouth [address] ) 50 MG [...] area in groin) hydrALAZINE 0 Yes 50mg [id number] Take 50 mg [facility] (APRESOLINE 7-19 [id number] by mouth [address] ) 50 MG [...] area in groin) hydrALAZINE 0 Yes 50mg Q.33566784 Take 50 mg [facility] (APRESOLINE 7-19 [id number] by mouth 3 st ) 50 MG [...] (affected area in groin) hydrALAZINE Yes 50mg Q.54312275 Take 50 mg [facility] (APRESOLINE 7-19 [id number] [address] mouth 3 st ) 50 MG [...] area in groin) hydrALAZINE 0 Yes 50mg Q.20441709 Take 50 mg [facility] (APRESOLINE 7-19 [id number] [address] mouth 3 st ) 50 MG [...] area in groin) hydrALAZINE 0 Yes 50mg Q.21382499 Take 50 mg [facility] (APRESOLINE 7-19 [address]16[address] mouth 3 st ) 50 MG [...] (affected area in groin) hydrALAZINE Yes 50mg Q.26879218 Take 50 mg [facility] (APRESOLINE 7-19 [id number] by mouth 3 st ) 50 MG [...] area in groin) hydrALAZINE 0 Yes 50mg Q.68397580 Take 50 mg [facility] (APRESOLINE 7-[address] mouth 3 [address] ) 50 MG [...] area in groin) hydrALAZINE 0 Yes 50mg Q.34593252 Take 50 mg [facility] (APRESOLINE 7-[id number] [address] mouth 3 st ) 50 MG [...] (affected area in groin) hydrALAZINE Yes 50mg Q.29587803 Take 50 mg [facility] (APRESOLINE 7-19 [address] mouth 3 [address] ) 50 MG [...] QD Take 10 mg M [facility] (NORVASC) 12-[address] 10 mg 10:51: daily. [...] tablet 25 daily. l clobetasol 2020-0 Yes Q.5D Apply 1 [facility] j[facility] (TEMOVATE) 12-[address] 0.05 % 10:51: n [facility] ointment 25 topically l 2 (two) times a day. (affected area in groin) hydrALAZINE 0 Yes 50mg Q.46859936 Take 50 mg [facility] (APRESOLINE -19 7648765200 [address] mouth 3 st ) 50 MG [...] area in groin) hydrALAZINE 0 Yes 50mg Q.13853342 Take 50 mg [facility] (APRESOLINE 7-19 [address]64[address] mouth 3 st ) 50 MG [...] (affected area in groin) hydrALAZINE Yes 50mg Q.74457817 Take 50 mg [facility] (APRESOLINE 7-[address] mouth 3 st ) 50 MG [...] (affected area in groin) hydrALAZINE Yes 50mg Q.34790995 Take 50 mg [facility] (APRESOLINE 7-19 [id number] mouth 3 [address] ) 50 MG [...] area in groin) hydrALAZINE 0 Yes 50mg Q.68432279 Take 50 mg [facility] (APRESOLINE 7-[address] mouth 3 [address] ) 50 MG [...] (affected area in groin) hydrALAZINE Yes 50mg Q.49428844 Take 50 mg [facility] (APRESOLINE 7-[address] mouth 3 [address] ) 50 MG [...] (affected area in groin) hydrALAZINE Yes 50mg Q.16184809 Take 50 mg [facility] (APRESOLINE 7-[id number] mouth [address] ) 50 MG [...] area in groin) hydrALAZINE 0 Yes 50mg Q.29166617 Take 50 mg [facility] (APRESOLINE 7-[address]86[address] mouth 3 st ) 50 MG [...] area in groin) hydrALAZINE 0 Yes 50mg Q.02638491 Take 50 mg [facility] (APRESOLINE 7-[address] mouth [address] ) 50 MG [...] (affected area in groin) hydrALAZINE Yes 50mg Q.44266051 Take 50 mg [facility] (APRESOLINE 7-19 [address] mouth 3 [address] ) 50 MG [...] (affected area in groin) hydrALAZINE Yes 50mg Q.27666459 Take 50 mg [facility] (APRESOLINE 7-19 [id number] mouth [address] ) 50 MG [...] area in groin) hydrALAZINE 0 Yes 50mg Q.90070476 Take 50 mg [facility] (APRESOLINE 7-[id number] mouth 3 [address] ) 50 MG [...] (affected area in groin) hydrALAZINE Yes 50mg Q.03733372 Take 50 mg [facility] (APRESOLINE 7-19 [address] mouth 3 [address] ) 50 MG [...] area in groin) hydrALAZINE 0 Yes 50mg Q.82416849 Take 50 mg [facility] (APRESOLINE 7-[address] mouth [address] ) 50 MG [...] Take 2 mg [facility] (ATIVAN) 2 12-[address] MG tablet 10:51: nightly [...] area in groin) hydrALAZINE 0 Yes 50mg Q.37614277 Take 50 mg [facility] (APRESOLINE 7-[address]16 [address] mouth [address] ) 50 MG [...] (affected area in groin) hydrALAZINE Yes 50mg Q.69667606 Take 50 mg [facility] (APRESOLINE 7-[address] mouth [address] ) 50 MG [...] (affected area in groin) hydrALAZINE Yes 50mg Q.13158403 Take 50 mg [facility] (APRESOLINE 7-[id number] mouth [address] ) 50 MG [...] area in groin) hydrALAZINE 0 Yes 50mg Q.66976648 Take 50 mg [facility] (APRESOLINE 7-19 [id number] mouth [address] ) 50 MG [...] area in groin) hydrALAZINE 0 Yes 50mg Q.04022829 Take 50 mg [facility] (APRESOLINE 7-19 [address] mouth [address] ) 50 MG [...] (affected area in groin) hydrALAZINE Yes 50mg Q.45412033 Take 50 mg [facility] (APRESOLINE 7-19 [address]504[address] mouth [address] ) 50 MG [...] area in groin) hydrALAZINE 2020-0 Yes 50mg Q.92212921 Take 50 mg [facility] (APRESOLINE 7-19 [id number] [address] mouth [address] ) 50 MG [...] area in groin) hydrALAZINE 2020-0 Yes 50mg Q.34351814 Take 50 mg [facility] (APRESOLINE 7-[address] ) 50 MG [...] (affected area in groin) hydrALAZINE Yes 50mg Q.15304484 Take 50 mg [facility] (APRESOLINE 7-[address] ) 50 MG [...] area in groin) hydrALAZINE 0 Yes 50mg Q.63901797 Take 50 mg [facility] (APRESOLINE 7-[id number] mouth [address] ) 50 MG [...] tablet 25 daily. l clobetasol 2020-0 Yes Q.5D Apply 1 [facility] (TEMOVATE) -[address] 0.05 % 10:51: [facility] ointment 25 topically l 2 (two) times a day. (affected area in groin) hydrALAZINE 2020-0 Yes 50mg Q.88939453 Take 50 mg [facility] (APRESOLINE 7-[address] mouth [address] ) 50 MG [...] (affected area in groin) hydrALAZINE Yes 50mg Q.45991455 Take 50 mg [facility] (APRESOLINE 7-[id number] mouth [address] ) 50 MG [...] area in groin) hydrALAZINE 0 Yes 50mg Q.15053509 Take 50 mg [facility] (APRESOLINE 7-[address] mouth [address] ) 50 MG [...] area in groin) hydrALAZINE 0 Yes 50mg Q.22979601 Take 50 mg [facility] (APRESOLINE 7-[address] mouth [address] ) 50 MG [...] (affected area in groin) hydrALAZINE Yes 50mg Q.[id number] Take 50 mg [facility] (APRESOLINE 7-[id number] mouth [address] ) 50 MG [...] (affected area in groin) hydrALAZINE Yes 50mg Q.[id number] Take 50 mg [facility] (APRESOLINE 7-[address] mouth [address] ) 50 MG [...] area in groin) hydrALAZINE 0 Yes 50mg Q.[id number] Take 50 mg [facility] (APRESOLINE 7-[address] mouth [address] ) 50 MG [...] area in groin) hydrALAZINE 0 Yes 50mg Q.54884207 Take 50 mg [facility] (APRESOLINE 7-19 3645125037 [address] mouth [address] ) 50 MG 10:51: 3D (three) [facility]osp[facility] tablet 25 times a l day. busPIRone 0 Yes 20mg QD Take 20 mg [facility] (BUSPAR) 10 7-[address] MG tablet 10:51: nightly. Hosp soern 25 l acetaminoph 0 Yes 1000mg Q.5D [...] (affected area in groin) hydrALAZINE Yes 50mg Q.35824292 Take 50 mg [facility] (APRESOLINE 7-[id number] mouth [address] ) 50 MG [...] area in groin) hydrALAZINE 0 Yes 50mg Q.[id number] Take 50 mg [facility] (APRESOLINE 7-[address] mouth [address] ) 50 MG [...] [facility]ospita tablet 25 l nystatin-tr 2020-0 Yes [id number] Apply to [facility] iamcinolone 7-06 area(s) 3 ity of cream 00:00: (three) [place] 00 times Medical daily. Branch nystatin-tr 2020-0 Yes [id number] Apply to [facility] iainolone 7-06 area(s) 3 ity of cream 00:00: (three) [place] 00 times Medical daily. Branch nystatin-tr 2020-0 Yes [id number] Apply to [facility] iainolone 7-06 area(s) 3 ity of cream 00:00: (three) [place] 00 times Medical daily. Branch nystatin-tr 2021-0 Yes [id number] Apply to [facility] iamcinolone 7-06 area(s) 3 ity of cream 00:00: (three) [place] 00 times Medical daily. Branch nystatin-tr 2021-0 Yes [id number] Apply to [facility] iamcinolone 7-06 area(s) 3 ity of cream 00:00: (three) [place] 00 times Medical daily. Branch nystatin-tr 2021-0 Yes [id number] Apply to [facility] iamcinolone 7-06 area(s) 3 ity of cream 00:00: (three) [place] 00 times Medical daily. Branch nystatin-tr 2021-0 Yes [id number] Apply to [facility] iamcinolone 7-06 area(s) 3 ity of cream 00:00: (three) [place] 00 times Medical daily. Branch nystatin-tr 2021-0 Yes [id number] Apply to [facility] iamcinolone 7-06 area(s) 3 ity of cream 00:00: (three) [place] 00 times Medical daily. Branch nystatin-tr 2021-0 Yes [id number] Apply to [facility] iamcinolone 7-06 area(s) 3 ity of cream 00:00: (three) [place] 00 times Medical daily. Branch nystatin-tr 2021-0 Yes [id number] Apply to [facility] iamcinolone 7-06 area(s) 3 ity of cream 00:00: (three) [place] 00 times Medical daily. Branch nystatin-tr 2021-0 Yes [id number] Apply to [facility] iamcinolone 7-06 area(s) 3 ity of cream 00:00: (three) [place] 00 times Medical daily. Branch nystatin-tr 2021-0 Yes [id number] Apply to [facility] iamcinolone 7-06 area(s) 3 ity of cream 00:00: (three) [place] 00 times Medical daily. Branch nystatin-tr 2021-0 Yes [id number] Apply to [facility] iamcinolone 7-06 area(s) 3 ity of cream 00:00: (three) [place] 00 times Medical daily. Branch nystatin-tr 2021-0 Yes [id number] Apply to [facility] iamcinolone 7-06 area(s) 3 ity of cream 00:00: (three) [place] 00 times Medical daily. Branch nystatin-tr 2020-0 Yes [id number] Apply to [facility] iamcinolone 7-06 area(s) 3 ity of cream 00:00: (three) [place] 00 times Medical daily. Branch nystatin-tr 1-0 Yes [id number] Apply to [facility] iamcinolone 7-06 area(s) 3 ity of cream 00:00: (three) [place] 00 times Medical daily. Branch nystatin-tr 2020-0 Yes [id number] Apply to [facility] iamcinolone 7-06 area(s) 3 ity of cream 00:00: (three) [place] 00 times Medical daily. Branch nystatin-tr 2020-0 Yes [id number] Apply to [facility] iamcinolone 7-06 area(s) 3 ity of cream 00:00: (three) [place] 00 times Medical daily. Branch nystatin-tr 2020-0 Yes [id number] Apply to [facility] iamcinolone 7-06 area(s) 3 ity of cream 00:00: (three) [place] 00 times Medical daily. Branch nystatin-tr 2020-0 Yes [id number] Apply to [facility] iamcinolone 7-06 area(s) 3 ity of cream 00:00: (three) [place] 00 times Medical daily. Branch budesonide- 2020-0 2020- No 1{puff} QD Inhale 1 [facility] formoteroL 11-14 06-[address] (SYMBICORT) 14:37: 00:00 morning. H [facility]spita 160-4.5 02 :00 l mcg/actuati on inhaler hydrALAZINE Yes [id number] 50mg Q.[id number] Take 1 [facility] (Apresoline 6-11 [id number] tablet (50 Health ) 50 MG 00:00: 3D mg total) tablet 00 by mouth 3 (three) times a day. hydrALAZINE Yes [id number] 50mg Q.[id number] Take 1 [facility] (Apresoline 6-11 [id number] tablet (50 Health ) 50 MG 00:00: [...] % 00:00: ointment 00 nystatin 2020- No [id number] Q.25D Take 5 mL [facility] (MYCOSTATIN 10-06 [...] e 4-10 Tablet l 14:00: should not [place] 00 be chewed or crushed. (Same as: Protonix) Amiodarone No Notes: Memor ia 4-10 (Same as: l 14:00: Cordarone) Amlodipine No Notes: [facility] 4-10 (Same as: l 14:00: Norvasc) [place] 00 emtricitabi No Notes: Caesar lisa ne 200 MG / 4-10 (Same as: l tenofovir 14:00: Descovy) Herm ariel alafenamide 00 Non-formul 25 MG Oral nancy Tablet [Descovy] Sertraline No Notes: [facility] 4-10 (Same as: l 14:00: Zoloft) Sertraline No Notes: [facility] 4-10 (Same as: l 14:00: Zoloft) pantoprazol No Notes: Caesar lisa e 4-10 Tablet l 14:00: should not [place] 00 be chewed or crushed. (Same as: [...] e 4-10 Tablet l 14:00: should not [place] 00 be chewed or crushed. (Same as: [...] e 4-10 Tablet l 14:00: should not [place] 00 be chewed or crushed. (Same as: Protonix) Amiodarone No Notes: [facility] ia 4-10 (Same as: l 14:00: Cordarone) [place] Amlodipine No Notes: [facility] ia 4-10 (Same [...] ia 4-10 (Same as: l 14:00: Cordarone) [place] 00 Amlodipine No Notes: [facility] ia 4-10 [...] e 4-10 Tablet l 14:00: should not [place] 00 be chewed or crushed. (Same as: [...] Memoria 4-10 Same as: l 02:00: Eliquis [place] Hydralazine No Notes: Caesar lisa Hydrochlori 4-10 [...] M emoria 4-10 interfere l 02:00: w/enteral [place] 00 feeds - Take 1 hr before [...] not exceed l #3 00:12: 4gm/day of [place] acetaminop hen. (Same as: Tylenol with Codeine [...] not exceed l #3 00:12: 4gm/day of [place] acetaminop hen. (Same as: Tylenol with Codeine [...] oria 4-09 tab, l 22:00: Route: PO, [place] Drug form: TAB, BID, Dosing Weight 97.273, kg, Start date: 08/29/20 17:00:00 CDT, Duration: 30 day, Stop date: 09/28/20 9:00:00 CDT metoprolol 2020-0 No 100 mg, 1 Me moria tartrate - tab, l 22:00: Route: PO, [place] 00 Drug form: TAB, BID, Dosing Weight [...] tartrate 4-09 tab, l 22:00: Route: PO, [place] 00 Drug form: TAB, BID, Dosing Weight [...] tartrate 4-09 tab, l 22:00: Route: PO, [place] 00 Drug form: TAB, BID, Dosing Weight [...] oria 4-09 tab, l 22:00: Route: PO, [place] Drug form: TAB, BID, Dosing Weight 97.273, kg, Start date: 08/29/20 17:00:00 CDT, Duration: 30 day, Stop date: 09/28/20 9:00:00 CDT metoprolol 2020-0 No 100 mg, 1 Me moria tartrate 4- tab, l 22:00: Route: PO, [place] 00 Drug form: TAB, BID, Dosing Weight [...] oria - tab, l 22:00: Route: PO, [place] 00 Drug form: TAB, BID, Dosing Weight 97.273, kg, Start date: 08/29/20 17:00:00 CDT, Duration: 30 day, Stop date: 09/28/20 9:00:00 CDT metoprolol 1-0 No 100 mg, 1 Me moria tartrate 4-09 tab, l 22:00: Route: PO, [place] Drug form: TAB, BID, Dosing Weight 97.273, [...] Notes: [facility] 4-09 (Same l 17:07: as:MORPhin [place] 00 e Sulfate) Morphine No Notes: [facility] 4-09 (Same l 17:07: as:MORPhin [place] 00 e Sulfate) Morphine No Notes: [facility] 4-09 (Same l 17:07: as:MORPhin [place] 00 e Sulfate) Morphine No Notes: [facility] 4-09 (Same l 17:07: as:MORPhin [place] 00 e Sulfate) Morphine No Notes: [facility] 4-09 (Same l 17:07: as:MORPhin [place] 00 e Sulfate) Morphine No Notes: [facility] 4-09 (Same l 17:07: as:MORPhin [place] 00 e Sulfate) buPROPion No 150 mg, [...] tab, PO, l oral 15:27: Daily, # [place] enteric 00 30 tab, 0 coated Refill(s), tablet Pharmacy: [facility], 162.56, cm, 08/29/20 5:30:00 CDT, Height, 97.273, kg, 08/29/20 5:30:00 CDT, Weight pantoprazol 2021-0 Yes 40 mg = 1 M emoria e 40 mg 4-09 tab, PO, l oral 15:27: Daily, # [place] enteric 00 30 tab, 0 coated Refill(s), tablet Pharmacy: [facility] 149, 162.56, cm, 08/29/20 5:30:00 CDT, Height, 97.273, kg, 08/29/20 5:30:00 CDT, Weight pantoprazol 2021-0 Yes 40 mg = 1 M emoria e 40 mg 4-09 tab, PO, l oral 15:27: Daily, # [place] enteric 00 30 tab, 0 coated Refill(s), tablet Pharmacy: [facility] 149, 162.56, cm, 08/29/20 5:30:00 CDT, Height, 97.273, kg, 08/29/20 5:30:00 CDT, Weight pantoprazol 2021-0 Yes 40 mg = 1 M emoria e 40 mg 4-09 tab, PO, l oral 15:27: Daily, # Marty enteric 00 30 tab, 0 coated Refill(s), tablet Pharmacy: [facility] 149, 162.56, cm, 08/29/20 5:30:00 CDT, Height, 97.273, kg, 08/29/20 5:30:00 CDT, Weight pantoprazol 2021-0 Yes 40 mg = 1 M emoria e 40 mg 4-09 tab, PO, l oral 15:27: Daily, # [place] enteric 00 30 tab, 0 coated Refill(s), tablet Pharmacy: [facility] 149, 162.56, cm, 08/29/20 5:30:00 CDT, Height, 97.273, kg, 08/29/20 5:30:00 CDT, Weight pantoprazol 2021-0 Yes 40 mg = 1 M emoria e 40 mg 4-09 tab, PO, l oral 15:27: Daily, # Marty enteric 00 30 tab, 0 coated Refill(s), tablet Pharmacy: [facility] 149, 162.56, cm, 08/29/20 5:30:00 CDT, Height, 97.273, kg, 08/29/20 5:30:00 CDT, Weight pantoprazol 2020-0 Yes 40 mg = 1 M emoria e 40 mg 4-09 tab, PO, l oral 15:27: Daily, # Marty enteric 00 30 tab, 0 coated Refill(s), tablet Pharmacy: [facility] 149, 162.56, cm, 08/29/20 5:30:00 [...] Skylar nn 00 tab, 0 Refill(s), Pharmacy: [facility] 149, 162.56, cm, 08/29/20 5:30:00 [...] 00 tab, 0 Refill(s), Pharmacy: [place] [id number], 162.56, cm, 08/29/20 5:30:00 CDT, Height, 97.273, [...] Skylar nn 00 tab, 0 Refill(s), Pharmacy: [facility] 149, 162.56, cm, 08/29/20 5:30:00 CDT, Height, 97.273, kg, 08/29/20 5:30:00 CDT, Weight pantoprazol 2020-0 No 40 mg = 1 M emoria e 40 mg 4-09 tab, PO, l oral 15:26: Daily, # [place] enteric 00 30 tab, 0 coated Refill(s) tablet sucralfate 2020-0 Yes 1 gm = 1 Mem oria 1 g oral 4-09 tab, PO, l tablet 15:26: Q12H, # 28 Skylar nn 00 tab, 0 Refill(s), Pharmacy: [facility] 149, 162.56, cm, 08/29/20 5:30:00 [...] 00 tab, 0 Refill(s), Pharmacy: [place] [id number], 162.56, cm, 08/29/20 5:30:00 CDT, Height, 97.273, [...] Skylar nn 00 tab, 0 Refill(s), Pharmacy: [facility] 149, 162.56, cm, 08/29/20 5:30:00 [...] Skylar nn 00 tab, 0 Refill(s), Pharmacy: [facility] 149, 162.56, cm, 08/29/20 5:30:00 [...] 0.9% 4-09 (Same as: l 15:25: BD [place] 00 Posiflush) Saline No Notes: Memoria Flush 0.9% 4-09 (Same as: l 15:25: BD [place] 00 Posiflush) Lorazepam No Notes: Memori a 4-09 (Same as: l 15:25: Ativan) Lorazepam No Notes: Memori a 4-09 (Same as: l 15:25: Ativan) Saline No Notes: [facility] Flush 0.9% 4-09 (Same as: l 15:25: BD [place] 00 Posiflush) Lorazepam No Notes: Memori a 4-09 (Same as: l 15:25: Ativan) Saline No Notes: [facility] Flush 0.9% - (Same as: l 15:25: BD [place] 00 Posiflush) Lorazepam No Notes: Memori a [...] Drug form: l mg + 15:00: INJ, [place] Dosing Weight 97.3, kg, Start date: 08/29/20 [...] 08-29 Drug form: l 14:18: INJ, ONCE, [place] Stop date: 08/29/20 9:18:00 CDT heparin 2020-0 No Route: IV, Caesar lisa (ANES) 08-29 Drug form: l 14:18: INJ, ONCE, [place] 00 Stop date: 08/29/20 9:18:00 CDT heparin [...] 08-29 Route: PO, l 14:01: Drug form: [place] 00 TAB, ONCE, Dosing Weight 97.273, kg, [...] lisa 08-29 Route: l 14:01: IVP, PRN, [place] 00 Dosing Weight 97.273, kg, PRN Benzodiaze [...] 08-29 Route: PO, l 14:01: Drug form: [place] 00 TAB, ONCE, Dosing Weight 97.273, kg, [...] Memori a 08-29 Route: l 14:01: IVP, [place] 00 Q2MIN, Dosing Weight 97.273, kg, PRN Narcotic Reversal, Start date: 08/29/20 9:01:00 CDT, Duration: 8 doses or times, Stop date: Limited # of times Ondansetron 2020-0 No 4 mg, Memor ia 08-29 Route: l 14:01: IVP, ONCE, [place] 00 Dosing Weight 97.273, kg, PRN Nausea & Vomiting, Start date: 08/29/20 9:01:00 CDT Labetalol 1-0 No 10 mg, Memori a 08-29 Route: l 14:01: IVP, [place] 00 Q5Min, Dosing Weight 97.273, kg, PRN [...] Memori a 08-29 Route: l 14:01: IVP, [place] 00 Q2MIN, Dosing Weight 97.273, kg, PRN Narcotic Reversal, Start date: 08/29/20 9:01:00 CDT, Duration: 8 doses or times, Stop date: Limited # of times Ondansetron 2020-0 No 4 mg, Memor ia 08-29 Route: l 14:01: IVP, ONCE, [place] 00 Dosing Weight 97.273, kg, PRN Nausea [...] 08-29 Route: PO, l 14:01: Drug form: [place] 00 TAB, ONCE, Dosing Weight 97.273, kg, [...] oria ne 08-29 Route: l 14:01: IVP, [place] 00 Q5Min, Dosing Weight 97.273, kg, PRN [...] times Acetaminoph 2021-0 No 1,000 mg, M erickria en 08-29 Route: PO, l 14:01: Drug form: [place] 00 TAB, ONCE, Dosing Weight 97.273, kg, [...] ia 08-29 Route: l 14:01: IVP, ONCE, [place] 00 Dosing Weight 97.273, kg, PRN Nausea & Vomiting, Start date: 08/29/20 9:01:00 CDT Labetalol 1-0 No 10 mg, Memori a 08-29 Route: l 14:01: IVP, [place] 00 Q5Min, Dosing Weight 97.273, kg, PRN [...] oria ne 08-29 Route: l 14:01: IVP, [place] 00 Q5Min, Dosing Weight 97.273, kg, PRN Pain Score 7-10, Start date: 08/29/20 9:01:00 CDT, Duration: 4 doses or times, Stop date: Limited # of times Flumazenil 1-0 No 0.2 mg, Caesar lisa 08-29 Route: l 14:01: IVP, PRN, [place] 00 Dosing Weight 97.273, kg, PRN Benzodiaze pine Reversal, Initial dose, Start date: 08/29/20 9:01:00 CDT, Duration: 30 day, Stop date: 09/28/20 9:00:00 CDT Naloxone 1-0 No 0.4 mg, Memori a 08-29 Route: l 14:01: IVP, [place] 00 Q2MIN, Dosing Weight 97.273, kg, PRN Narcotic Reversal, Start date: 08/29/20 9:01:00 CDT, Duration: 8 doses or times, Stop date: Limited # of times Ondansetron 1-0 No 4 mg, Memor ia 08-29 Route: l 14:01: IVP, ONCE, [place] 00 Dosing Weight 97.273, kg, PRN Nausea & Vomiting, Start date: 08/29/20 9:01:00 CDT Labetalol 1-0 No 10 mg, Memori a 08-29 Route: l 14:01: IVP, [place] 00 Q5Min, Dosing Weight 97.273, kg, PRN Elevated BP, Start date: 08/29/20 9:01:00 CDT, Duration: 5 doses or times, Stop date: Limited # of times Acetaminoph 1-0 No 1,000 mg, M emoria en 08-29 Route: PO, l 14:01: Drug form: [place] 00 TAB, ONCE, Dosing Weight 97.273, kg, [...] oria ne 08-29 Route: l 14:01: IVP, [place] 00 Q5Min, Dosing Weight 97.273, kg, PRN Pain Score 7-10, Start date: 08/29/20 9:01:00 CDT, Duration: 4 doses or times, Stop date: Limited # of times Flumazenil 1-0 No 0.2 mg, Caesar lisa 08-29 Route: l 14:01: IVP, PRN, [place] 00 Dosing Weight 97.273, kg, PRN Benzodiaze [...] Drug form: l 10 13:15: INJ, Start [place] 00 date: 08/29/20 8:15:00 CDT, Stop date: 08/29/20 9:15:00 CDT norepinephr 2021-0 No Route: IV, Memoria ine (ANES) 08-29 Drug form: l 10 13:15: INJ, Start [place] microgram 00 date: 08/29/20 8:15:00 CDT, Stop [...] Drug form: l 10 13:15: INJ, Start [place] microgram date: 08/29/20 8:15:00 CDT, Stop date: 08/29/20 9:15:00 CDT norepinephr 2020-0 No Route: IV, Memoria ine (ANES) 08-29 Drug form: l 10 13:15: INJ, Start [place] microgram date: 08/29/20 8:15:00 CDT, Stop date: 08/29/20 9:15:00 CDT norepinephr 2021-0 No Route: IV, Memoria ine (ANES) 08-29 Drug form: l 10 13:15: INJ, Start [place] microgram 00 date: 08/29/20 8:15:00 CDT, Stop date: 08/29/20 9:15:00 CDT Sodium 2020-0 No Route: IV, Memor ia Chloride 08-29 Total l 0.9% IV 12:30: Volume: [place] (ANES) 1000 00 1,000, mL Start date: 08/29/20 7:30:00 CDT, Stop date: 08/29/20 8:30:00 CDT Sodium 2020-0 No Route: IV, Memor ia Chloride 4-09 Total l 0.9% IV 12:30: Volume: Marty (ANES) 1000 00 1,000, mL Start date: 08/29/20 7:30:00 CDT, Stop date: 08/29/20 8:30:00 CDT Sodium 2021-0 No Route: IV, Memor ia Chloride 4-09 Total l 0.9% IV 12:30: Volume: [place] (ANES) 1000 00 1,000, mL Start date: 08/29/20 7:30:00 CDT, Stop date: 08/29/20 8:30:00 CDT Sodium 2020-0 No Route: IV, Memor ia Chloride 4-09 Total l 0.9% IV 12:30: Volume: [place] (ANES) 1000 00 1,000, mL Start date: [...] PO, l Hydrochlori 11:42: Q24H, # 30 [place] de 150 MG 00 tab, 0 Extended [...] PO, l Hydrochlori 11:42: Q24H, # 30 [place] de 150 MG 00 tab, 0 Extended Refill(s) Release Tablet apixaban 5 2020-0 Yes 5 mg, PO, Me moria MG Oral 08-29 Q12H, tab, l Tablet 11:41: 0 Marty [Eliquis] 00 Refill(s), For Atrial Fibrilatio n apixaban 2020-0 Yes 5 mg, PO, Me moria MG Oral 08-29 Q12H, tab, l Tablet 11:41: 0 [place] [Eliquis] 00 Refill(s), For Atrial Fibrilatio n [...] - Q12H, tab, l Tablet 11:41: 0 [place] [Eliquis] 00 Refill(s), For Atrial Fibrilatio n apixaban 5 2020-0 Yes 5 mg, PO, Me moria MG Oral 4- Q12H, tab, l Tablet 11:41: 0 [place] [Eliquis] 00 Refill(s), For Atrial Fibrilatio n apixaban 2020-0 Yes 5 mg, PO, Me moria MG Oral -09 Q12H, tab, l Tablet 11:41: 0 [place] [Eliquis] 00 Refill(s), For Atrial Fibrilatio n AMIODarone Yes 200 mg = 1 M emoria 200 mg oral 4-09 tab, PO, l tablet 11:38: Daily, # [place] 00 90 tab, 3 Refill(s) AMIODarone 2020-0 Yes 200 mg = 1 M emoria 200 mg oral 4-09 tab, PO, l tablet 11:38: Daily, # Marty 00 90 tab, 3 Refill(s) AMIODarone 0 Yes 200 mg = 1 M [facility] 200 mg oral 4-09 tab, PO, l tablet 11:38: Daily, # [place] 00 90 tab, 3 Refill(s) AMIODarone 2020-0 Yes 200 mg = 1 M [facility] 200 mg oral 4-09 tab, PO, l tablet 11:38: Daily, # [place] 00 90 tab, 3 Refill(s) AMIODarone 2020-0 Yes 200 mg = 1 M [facility] 200 mg oral 4-09 tab, PO, l tablet 11:38: Daily, # [place] 00 90 tab, 3 Refill(s) AMIODarone 2020-0 Yes 200 mg = 1 M [facility] 200 mg oral 4-09 tab, PO, l tablet 11:38: Daily, # [place] 00 90 tab, 3 Refill(s) AMIODarone 2020-0 Yes 200 mg = 1 M [facility] 200 mg oral 4-09 tab, PO, l tablet 11:38: Daily, # [place] 00 90 tab, 3 Refill(s) normal No [...] [facility] mabel DESCOVY 2017-0 Yes 1{tbl} QD Take 1 [...] [place] 65[place] PFIZER COVID-19 2020-07-23 Completed [facility] 00:00:00 [facility] PFIZER COVID-19 2020-07-23 Completed [facility] 00:00:00 [facility] PFIZER COVID-19 2020-07-23 Completed [facility] 00:00:00 [facility] PFIZER COVID-19 2020-07-23 Completed [facility] 00:00:00 [facility] PFIZER COVID-19 2020-07-23 Completed [facility] 00:00:00 [facility] PFIZER COVID-19 2020-07-23 Completed [facility] 00:00:00 [facility] PFIZER COVID-19 2020-07-23 Completed [facility] 00:00:00 [facility] PFIZER COVID-19 2020-07-23 Completed [facility] 00:00:00 [facility] PFIZER COVID-19 2020-07-23 Completed [facility] 00:00:00 [facility] PFIZER COVID-19 2020-07-23 Completed [facility] 00:00:00 [facility] PFIZER COVID-19 2020-07-23 Completed [facility] 00:00:00 [facility] PFIZER COVID-19 2020-07-23 Completed [facility] 00:00:00 [facility] PFIZER COVID-19 2020-07-23 Completed [facility] 00:00:00 [facility] PFIZER COVID-19 2020-07-23 Completed [facility] 00:00:00 [facility] PFIZER COVID-19 2020-07-23 Completed [facility] 00:00:00 [facility] PFIZER COVID-19 2020-07-23 Completed [facility] 00:00:00 [facility] PFIZER COVID-19 2020-07-23 Completed [facility]ACC[facility] 00:00:00 [facility] PFIZER COVID-19 2020-07-23 Completed [facility] VACC[facility] 00:00:00 [facility] PFIZER COVID-19 2020-07-23 Completed [facility] VACCINATION 00:00:00 [facility] PFIZER COVID-19 2020-07-23 Completed [facility] VACCINATION 00:00:00 [facility] PEG COVID-19 2020-07-23 Completed [facility] VACCINATION 00:00:00 [facility] PEG COVID-19 2020-07-23 Completed [facility] VACC[facility] 00:00:00 [facility] PEG COVID-19 2020-07-23 Completed [facility] VACCINATION 00:00:00 [facility] PEG COVID-19 2020-07-23 Completed [facility] VACCINATION 00:00:00 [facility] PEG COVID-19 2020-07-23 Completed [facility] VACC[facility] 00:00:00 [facility] PEG COVID-19 2020-07-23 Completed [facility] VACCINATION 00:00:00 [facility] PEG COVID-19 2020-07-23 Completed [facility] VACC[facility]ATION 00:00:00 [facility] PEG COVID-19 2020-07-23 Completed [facility] VACCINATION 00:00:00 [facility] PEG COVID-19 2020-07-23 Completed [facility] VACC[facility] 00:00:00 [facility] PEG COVID-19 2020-07-23 Completed [facility] VACC[facility]ATION 00:00:00 [facility] PEG COVID-19 2020-07-23 Completed [facility] VACC[facility] 00:00:00 [facility] PEG COVID-19 2020-07-23 Completed [facility] VACC[facility] 00:00:00 [facility] PEG COVID-19 2020-07-23 Completed [facility] VACC[facility] 00:00:00 [facility] PFIZER COVID-19 2020-07-23 Completed [facility] VACC[facility] 00:00:00 [facility] PEG COVID-19 2020-07-23 Completed [facility] VACC[facility] 00:00:00 [facility] PFIZER COVID-19 2020-07-23 Completed [facility] VACCINATION 00:00:00 [facility] PFIZER COVID-19 2020-07-23 Completed [facility] VACC[facility] 00:00:00 [facility] PFIZER COVID-19 2020-07-23 Completed [facility] VACC[facility] 00:00:00 [facility] PFIZER COVID-19 2020-07-23 Completed [facility] VACC[facility] 00:00:00 [facility] PFIZER COVID-19 2020-07-23 Completed [facility]00 [facility] PFIZER COVID-19 2020-07-23 Completed [facility]:00 [facility] PFIZER COVID-19 2020-07-23 Completed [facility]:00:00 [facility] PFIZER COVID-19 2020-07-23 Completed [facility]ACC[facility] 00:00:00 [facility] SARS-COV-2 COVID-19 2020-07-23 Completed Unive rsity of PFIZER VACCINE 00:00:00 [facility] SARS-COV-2 COVID-19 2020-07-23 Completed [facility]ive [facility]ity of PFIZER VACCINE 00:00:00 [facility] SARS-COV-2 COVID-19 2020-07-23 Completed Unive rsity of PFIZER VACCINE 00:00:00 [facility] SARS-COV-2 COVID-19 2020-07-23 Completed [facility] rsity of PFIZER VACCINE 00:00:00 [facility] SARS-COV-2 COVID-19 2020-07-23 Completed Un[facility] rsity of PFIZER VACCINE 00:00:00 [facility] SARS-COV-2 COVID-19 2020-07-23 Completed [facility]ive [facility]ity of PFIZER VACCINE 00:00:00 [facility] SARS-COV-2 COVID-19 2020-07-23 Completed [facility] rsity of PFIZER VACCINE 00:00:00 [facility] SARS-COV-2 COVID-19 2020-07-23 Completed [facility] rsity of PFIZER VACCINE 00:00:00 [facility] SARS-COV-2 COVID-19 2020-07-23 Completed Unive rsity of PFIZER VACCINE 00:00:00 [facility] SARS-COV-2 COVID-19 2020-07-23 Completed Unive rsity of PFIZER VACCINE 00:00:00 [facility] SARS-COV-2 COVID-19 2020-07-23 Completed Unive rsity of PFIZER VACCINE 00:00:00 [facility] SARS-COV-2 COVID-19 2020-07-23 Completed [facility] rsity of PFIZER VACCINE 00:00:00 [facility] SARS-COV-2 COVID-19 2020-07-23 Completed Unive rsity of PFIZER VACCINE 00:00:00 [facility] SARS-COV-2 COVID-19 2020-07-23 Completed Un[facility] rsity of PFIZER VACCINE 00:00:00 [facility] SARS-COV-2 COVID-19 2020-07-23 Completed [facility] rsity of PFIZER VACCINE 00:00:00 [facility] SARS-COV-2 COVID-19 2020-07-23 Completed [facility] rsity of PFIZER VACCINE 00:00:00 [facility] PFIZER COVID-19 2020-07-23 Completed [facility] 00:00:00 [facility] PFIZER COVID-19 2020-07-02 Completed [facility]ACC[facility] 00:00:00 [facility] PFIZER COVID-19 2020-07-02 Completed [facility]ACC[facility] 00:00:00 [facility] PFIZER COVID-19 2020-07-02 Completed [facility]ACC[facility] 00:00:00 [facility] PFIZER COVID-19 2020-07-02 Completed [facility]ACC[facility] 00:00:00 [facility] PFIZER COVID-19 2020-07-02 Completed [facility]ACC[facility] 00:00:00 [facility] PFIZER COVID-19 2020-07-02 Completed [facility]ACC[facility] 00:00:00 [facility] PFIZER COVID-19 2020-07-02 Completed [facility]ACC[facility] 00:00:00 [facility] PFIZER COVID-19 2020-07-02 Completed [facility]ACC[facility] 00:00:00 [facility] PFIZER COVID-19 2020-07-02 Completed [facility]ACC[facility] 00:00:00 [facility] PFIZER COVID-19 2020-07-02 Completed [facility]ACC[facility] 00:00:00 [facility] PFIZER COVID-19 2020-07-02 Completed [facility]ACC[facility] 00:00:00 [facility] PFIZER COVID-19 2020-07-02 Completed [facility]ACC[facility] 00:00:00 [facility] PFIZER COVID-19 2020-07-02 Completed [facility]ACC[facility] 00:00:00 [facility] PFIZER COVID-19 2020-07-02 Completed [facility] 00:00:00 [facility] PFIZER COVID-19 2020-07-02 Completed [facility] VACC[facility] 00:00:00 [facility] PFIZER COVID-19 2020-07-02 Completed [facility]ACC[facility] 00:00:00 [facility] PFIZER COVID-19 2020-07-02 Completed [facility] VACC[facility] 00:00:00 [facility] PFIZER COVID-19 2020-07-02 Completed [facility] VACC[facility] 00:00:00 [facility] PFIZER COVID-19 2020-07-02 Completed [facility]ACC[facility] 00:00:00 [facility] PFIZER COVID-19 2020-07-02 Completed [facility] VACC[facility] 00:00:00 [facility] PFIZER COVID-19 2020-07-02 Completed [facility]ACC[facility] 00:00:00 [facility] PFIZER COVID-19 2020-07-02 Completed [facility]ACC[facility] 00:00:00 [facility] PFIZER COVID-19 2020-07-02 Completed [facility]ACC[facility] 00:00:00 [facility] PFIZER COVID-19 2020-07-02 Completed [facility]ACC[facility] 00:00:00 [facility] PFIZER COVID-19 2020-07-02 Completed [facility] VACC[facility] 00:00:00 [facility] PFIZER COVID-19 2020-07-02 Completed [facility] VACC[facility] 00:00:00 [facility] PEG COVID-19 2020-07-02 Completed [facility] VACC[facility] 00:00:00 [facility] PEG COVID-19 2020-07-02 Completed [facility]ACC[facility] 00:00:00 [facility] PFIZER COVID-19 2020-07-02 Completed [facility] VACC[facility] 00:00:00 [facility] PFIZER COVID-19 2020-07-02 Completed [facility] VACC[facility] 00:00:00 [facility] PFIZER COVID-19 2020-07-02 Completed [facility] VACC[facility] 00:00:00 [facility] PFIZER COVID-19 2020-07-02 Completed [facility] VACC[facility] 00:00:00 [facility] PFIZER COVID-19 2020-07-02 Completed [facility]ACC[facility] 00:00:00 [facility] PFIZER COVID-19 2020-07-02 Completed [facility] VACC[facility] 00:00:00 [facility] PFIZER COVID-19 2020-07-02 Completed [facility] VACC[facility] 00:00:00 [facility] PFIZER COVID-19 2020-07-02 Completed [facility] VACC[facility] 00:00:00 [facility] PFIZER COVID-19 2020-07-02 Completed [facility] VACC[facility] 00:00:00 [facility] PFIZER COVID-19 2020-07-02 Completed [facility]ACC[facility] 00:00:00 [facility] PFIZER COVID-19 2020-07-02 Completed [facility] VACC[facility] 00:00:00 [facility] PFIZER COVID-19 2020-07-02 Completed [facility] VACC[facility] 00:00:00 [facility] PFIZER COVID-19 2020-07-02 Completed [facility] 00:00:00 [facility] PFIZER COVID-19 2020-07-02 Completed [facility] 00:00:00 [facility] PFIZER COVID-19 2020-07-02 Completed [facility]ACC[facility] 00:00:00 [facility] SARS-COV-2 COVID-19 2020-07-02 Completed Unive rsity of PFIZER VACCINE 00:00:00 [facility] SARS-COV-2 COVID-19 2020-07-02 Completed Unive rsity of PFIZER VACCINE 00:00:00 [facility] SARS-COV-2 COVID-19 2020-07-02 Completed [facility]ive rsity of PFIZER VACCINE 00:00:00 [facility] SARS-COV-2 COVID-19 2020-07-02 Completed [facility]ive rsity of PFIZER VACCINE 00:00:00 [facility] SARS-COV-2 COVID-19 2020-07-02 Completed Unive rsity of PFIZER VACCINE 00:00:00 [facility] SARS-COV-2 COVID-19 2020-07-02 Completed [facility]ive rsity of PFIZER VACCINE 00:00:00 [facility] SARS-COV-2 COVID-19 2020-07-02 Completed Unive rsity of PFIZER VACCINE 00:00:00 [facility] SARS-COV-2 COVID-19 2020-07-02 Completed [facility]ive rsity of PFIZER VACCINE 00:00:00 [facility] SARS-COV-2 COVID-19 2020-07-02 Completed [facility]ive rsity of PFIZER VACCINE 00:00:00 [facility] SARS-COV-2 COVID-19 2020-07-02 Completed [facility]ive rsity of PFIZER VACCINE 00:00:00 [facility] SARS-COV-2 COVID-19 2020-07-02 Completed [facility]ive rsity of PFIZER VACCINE 00:00:00 [facility] SARS-COV-2 COVID-19 2020-07-02 Completed [facility]ive rsity of PFIZER VACCINE 00:00:00 [facility] SARS-COV-2 COVID-19 2020-07-02 Completed [facility] of PFIZER VACCINE 00:00:00 [facility] SARS-COV-2 COVID-19 2020-07-02 Completed Unive rsity of PFIZER VACCINE 00:00:00 [facility] SARS-COV-2 COVID-19 2020-07-02 Completed [facility]ity of PFIZER VACCINE 00:00:00 [facility] SARS-COV-2 COVID-19 2020-07-02 Completed [facility] of PFIZER VACCINE 00:00:00 [facility] PFIZER COVID-19 2020-07-02 Completed [facility]:00 [facility] Influenza Virus 2017-03-08 [...] [facility] Branch Pneumococcal 13 2014-01-30 Completed Universit y of Conjugate, PCV13 00:00:00 [facility] dical (Prevnar 13) Branch Influenza Virus 2014-01-30 Completed Universit y of Vaccine (3+ yrs) 00:00:00 [facility] Branch Pneumococcal 13 2014-01-30 Completed Universit y of Conjugate, PCV13 00:00:00 [facility] dical (Prevnar 13) Branch Influenza Virus 2014-01-30 Completed Universit y of Vaccine (3+ yrs) 00:00:00 [facility] Branch Pneumococcal 13 2014-01-30 Completed Universit y of Conjugate, PCV13 00:00:00 [facility] dical (Prevnar 13) Branch Influenza Virus 2014-01-30 Completed [facility]it y of Vaccine (3+ yrs) 00:00:00 [facility] Branch Pneumococcal 13 2014-01-30 Completed Universit y of Conjugate, PCV13 00:00:00 [facility] dical (Prevnar 13) Branch Influenza Virus 2014-01-30 Completed [facility] Vaccine (3+ yrs) 00:00[facility]00 [facility] P[facility] 13 2014-01-30 Completed [facility]it y of Conjugate, PCV13 00:00:00 [facility] dical (Prevnar 13) Branch Influenza Virus 2014-01-30 Completed [facility] y [facility] Vaccine (3+ yrs) 00:00[facility]00 [facility] Pneumococcal 13 2014-01-30 Completed [facility]it y of Conjugate, PCV13 00:00:00 [facility] dical (Prevnar 13) Branch Influenza Virus 2014-01-30 Completed [facility] Vaccine (3+ yrs) 00:00[facility]00 [facility] Pneumococcal 13 2014-01-30 Completed [facility]it y of Conjugate, PCV13 00:00:00 [facility] dical (Prevnar 13) Branch Influenza Virus 2014-01-30 Completed Universit y of Vaccine (3+ yrs) 00:00:00 [facility] Branch Pneumococcal 13 2014-01-30 Completed Universit y of Conjugate, PCV13 00:00:00 [facility] dical (Prevnar 13) Branch Influenza Virus 2014-01-30 Completed Universit y of Vaccine (3+ yrs) 00:00:00 [facility] d[facility] Branch Pneumococcal 13 2014-01-30 Completed [facility] y of Conjugate, PCV13 00:00:00 [place] [facility] (Prevnar 13) [facility] Influenza Virus 2014-01-30 Completed [facility]it y of Vaccine (3+ yrs) 00:00:00 [place] [facility] Pneumococcal 13 2014-01-30 Completed [facility] y of Conjugate, PCV13 00:00:00 [place] [facility] (Prevnar 13) Branch Influenza Virus 2014-01-30 Completed [facility] y of Vaccine (3+ yrs) 00:00:00 [place] [facility] Pneumococcal 13 2014-01-30 Completed [facility] of Conjugate, PCV13 00:00:00 [place] [facility] (Prevnar 13) [facility] Influenza Virus 2014-01-30 Completed [facility]it y of Vaccine (3+ yrs) 00:00:00 [facility] Branch Pneumococcal 13 2014-01-30 Completed Universit y of Conjugate, PCV13 00:00:00 [facility] dical (Prevnar 13) Branch Influenza Virus 2014-01-30 Completed [facility]it y of Vaccine (3+ yrs) 00:00:00 [facility] Branch Pneumococcal 13 2014-01-30 Completed Universit y of Conjugate, PCV13 00:00:00 [facility] dical (Prevnar 13) Branch Influenza Virus 2014-01-30 Completed Universit y of Vaccine (3+ yrs) 00:00:00 [facility] Branch Pneumococcal 13 2014-01-30 Completed Universit y of Conjugate, PCV13 00:00:00 [facility] dical (Prevnar 13) Branch Influenza Virus 2014-01-30 Completed Universit y of Vaccine (3+ yrs) 00:00:00 [facility] Branch Pneumococcal 13 2014-01-30 Completed [facility]it y of Conjugate, PCV13 00:00:00 [facility] dical (Prevnar 13) Branch Influenza Virus 2014-01-30 Completed Universit y of Vaccine (3+ yrs) 00:00:00 [facility] Branch Pneumococcal 13 2014-01-30 Completed Universit y of Conjugate, PCV13 00:00:00 [facility] dical (Prevnar 13) Branch Influenza Virus 2014-01-30 Completed Universit y of Vaccine (3+ yrs) 00:00:00 [facility] Branch Pneumococcal 13 2014-01-30 Completed Universit y of Conjugate, PCV13 00:00:00 [facility] dical (Prevnar 13) Branch Influenza Virus 2014-01-30 Completed Universit y of Vaccine (3+ yrs) 00:00:00 [facility] Branch Pneumococcal 13 2014-01-30 Completed Universit y of Conjugate, PCV13 00:00:00 [facility] dical (Prevnar 13) Branch Influenza Virus 2014-01-30 Completed Universit y of Vaccine (3+ yrs) 00:00:00 [facility] Branch Pneumococcal 13 2014-01-30 Completed Universit y of Conjugate, PCV13 00:00:00 [facility] dical (Prevnar 13) Branch Influenza Virus 2014-01-30 Completed Universit y of Vaccine (3+ yrs) 00:00:00 [facility] Branch Pneumococcal 13 2014-01-30 Completed Universit y of Conjugate, PCV13 00:00:00 [facility] dical (Prevnar 13) Branch Pneumococcal 2012-02-16 Completed [...] [facility] PPSV23 (PNEUMOVAX) [place] Influenza Virus 2012-02-16 Completed Universit y of [...] 2011-09-01 Completed Unive rsity of Dosage 00:00:00 [facility] Hep B, Adol or [...] 2011-03-17 Completed Unive rsity of Dosage 00:00:00 [facility] Hep B, Adol or Pedi 2011-03-17 Completed Unive rsity of Dosage 00:00:00 [facility] Hep B, Adol or Pedi 2011-03-17 Completed Unive rsity of Dosage 00:00:00 [facility] Hep B, Adol or Pedi 2011-03-17 Completed Unive rsity of Dosage 00:00:00 [facility] Hep B, Adol or Pedi 2011-03-17 Completed Unive rsity of Dosage 00:00:00 [facility] Hep B, Adol or Pedi 2011-03-17 Completed Unive rsity of Dosage 00:00:00 [facility] [place] Influenza Virus 2011-02-10 Completed Universit y of Vaccine 00:00:00 [facility] Hep B, Adol or Pedi 2011-02-10 Completed Unive rsity of Dosage 00:00:00 [facility] [place] Influenza Virus 2011-02-10 Completed Universit y of Vaccine 00:00:00 [facility] Hep B, Adol or Pedi 2011-02-10 Completed Unive rsity of Dosage 00:00:00 [facility] [place] Influenza Virus 2011-02-10 Completed Universit y of Vaccine 00:00:00 [facility] Hep B, Adol or Pedi 2011-02-10 Completed Unive rsity of Dosage 00:00:00 [facility] [place] Influenza Virus 2011-02-10 Completed Universit y of Vaccine 00:00:00 [facility] Hep B, Adol or Pedi 2011-02-10 Completed Unive rsity of Dosage 00:00:00 [facility] [place] Influenza Virus 2011-02-10 Completed Universit y of Vaccine 00:00:00 [facility] Hep B, Adol or Pedi 2011-02-10 Completed Unive rsity of Dosage 00:00:00 [facility] [place] Influenza Virus 2011-02-10 Completed [facility]it y of Vaccine 00:00:00 [facility] Hep B, Adol or Pedi 2011-02-10 Completed Unive rsity of Dosage 00:00:00 [facility] [place] Influenza Virus 2011-02-10 Completed Universit y of Vaccine 00:00:00 [facility] Hep B, Adol or [...] 2011-02-10 Completed [facility]it [facility] of Vaccine 00:00:00 [facility] Hep B, Adol or Pedi 2011-02-10 Completed Unive rsity of Dosage 00:00:00 [facility] [place] Influenza Virus 2011-02-10 Completed [facility] of Vaccine 00:00:00 [facility] [place] Hep B, Adol or Pedi 2011-02-10 Completed Unive rsity of Dosage 00:00:00 [facility] [place] Influenza Virus 2011-02-10 Completed [facility]it y of Vaccine 00:00:00 [facility] Hep B, Adol or Pedi 2011-02-10 Completed Unive rsity of Dosage 00:00:00 [facility] [place] Influenza Virus 2011-02-10 Completed [facility]it y of Vaccine 00:00:00 [facility] Hep B, Adol or Pedi 2011-02-10 Completed Unive rsity of Dosage 00:00:00 [facility] [place] Influenza Virus 2011-02-10 Completed [facility]it y of Vaccine 00:00:00 [facility] Hep B, Adol or [...] PPD (TB) 2010-11-18 Completed University of 00:00:00 [facility] TDAP (ADACEL) 2010-11-18 Completed University of VACCINE 00:00:00 [facility] [place] PPD (TB) 2010-11-18 Completed University of 00:00:00 [facility] TDAP (ADACEL) 2010-11-18 Completed [...] PPD (TB) 2010-11-18 Completed University of 00:00:00 [facility] TDAP (ADACEL) 2010-11-18 Completed University of VACCINE 00:00:00 [facility] [place] PPD (TB) 2010-11-18 Completed University of 00:00:00 [facility] TDAP (ADACEL) 2010-11-18 Completed [...] HEPATITIS A 2004-03-02 Completed University of 00:00:00 [facility] HEPATITIS A 2004-03-02 Completed University of 00:00:00 [facility] HEPATITIS A 2004-03-02 Completed University of 00:00:00 [facility] HEPATITIS A 2004-03-02 Completed University of 00:00:00 [facility] HEPATITIS A 2004-03-02 Completed University of 00:00:00 [facility] HEPATITIS A 2004-03-02 Completed University of 00:00:00 [facility] HEPATITIS A 2004-03-02 Completed University of 00:00:00 [facility] HEPATITIS A 2004-03-02 Completed University of 00:00:00 [facility] HEPATITIS A 2004-03-02 Completed University of 00:00:00 [facility] HEPATITIS A 2004-03-02 Completed University of 00:00:00 [facility] HEPATITIS A 2004-03-02 Completed University of 00:00:00 [facility] HEPATITIS A 2004-03-02 Completed University of 00:00:00 [facility] HEPATITIS A 2004-03-02 Completed University of 00:00:00 [facility] HEPATITIS A 2004-03-02 Completed University of 00:00:00 [facility] HEPATITIS A 2004-03-02 Completed University of 00:00:00 [facility] HEPATITIS A 2004-03-02 Completed University of 00:00:00 [facility] HEPATITIS A 2004-03-02 Completed University of 00:00:00 [facility] HEPATITIS A 2004-03-02 Completed University of 00:00:00 [facility] HEPATITIS A 2004-03-02 Completed University of 00:00:00 [facility] HEPATITIS A 2004-03-02 Completed University of 00:00:00 [facility] HEPATITIS A 2003-08-01 Completed University of 00:00:00 [facility] HEPATITIS A 2003-08-01 Completed University of 00:00:00 [facility] HEPATITIS A 2003-08-01 Completed University of 00:00:00 [facility] HEPATITIS A 2003-08-01 Completed [facility] 00:00:00 [facility] HEPATITIS A 2003-08-01 Completed University of 00:00:00 [facility] HEPATITIS A 2003-08-01 Completed University of 00:00:00 [facility] HEPATITIS A 2003-08-01 Completed University of 00:00:00 [facility] HEPATITIS A 2003-08-01 Completed University of 00:00:00 [facility] HEPATITIS A 2003-08-01 Completed University of 00:00:00 [facility] HEPATITIS A 2003-08-01 Completed University of 00:00:00 [facility] HEPATITIS A 2003-08-01 Completed University of 00:00:00 [facility] HEPATITIS A 2003-08-01 Completed University of 00:00:00 [facility] HEPATITIS A 2003-08-01 Completed University of 00:00:00 [facility] HEPATITIS A 2003-08-01 Completed University of 00:00:00 [facility] HEPATITIS A 2003-08-01 Completed [...] 00:00:00 [facility] [place] Pneumococcal 2001-10-04 Completed [place] o f Polysaccharide, 00:00:00 [place] [facility] PPSV23 (PNEUMOVAX) Branch PPD (TB) 2001-10-04 Completed University of 00:00:00 [facility] [place] Pneumococcal 2001-10-04 Completed University o f Polysaccharide, 00:00:00 [place] [facility] PPSV23 (PNEUMOVAX) Branch PPD (TB) 2001-10-04 Completed University of 00:00:00 [facility] [place] Vital Signs Vital Name Observation Time Observation Value Comments Source Systolic blood 2022-05-10 22:00:00 159 mm[Hg] Univer sity of pressure [facility] [place] Diastolic blood 2022-05-10 22:00:00 87 mm[Hg] Unive rsity of pressure [facility] [place] Heart rate 2022-05-10 22:00:00 56 /min [facility] Body temperature 2022-05-10 22:00:00 36.61 Amina [facility] rate 2022-05-10 22:00:00 17 /min [facility] Oxygen saturation in 2022-05-10 22:00:00 98 /min [facility] Arterial blood by [facility] Pulse oximetry Branch Body weight 2022-05-10 16:29:00 78.926 kg [facility] BMI 2022-05-10 16:29:00 29.87 kg/m2 [facility] Systolic blood 2022-05-08 22:30:00 168 mm[Hg] Univer sity of pressure [facility] Diastolic blood 2022-05-08 22:30:00 85 mm[Hg] Unive rsity of pressure [facility] Heart rate 2022-05-08 22:30:00 68 /min [facility] Oxygen saturation in 2022-05-08 22:30:00 100 /min University of Arterial blood by [place] [employer] porfirio Pulse oximetry Branch Body temperature 2022-05-08 22:22:00 35.89 Amina Univ ersity of [facility] [place] [facility] Respiratory rate 2022-05-08 22:22:00 [...] [facility] por[facility]io Pulse oximetry Branch Body temperature 2022-05-06 [...] 19:50:00 36.67 Amina [facility] [place] [...] 96 /min University of Arterial blood by [employer] Pulse oximetry Branch Systolic blood 2022-03-05 15:23:00 [...] 98 /min University of Arterial blood by [facility] Pulse oximetry Branch Body height 2022-02-11 16:02:00 162.6 cm Universi ty of [facility] [place] Body weight 2022-02-11 16:02:00 79.379 kg [facility] BMI 2022-02-11 16:02:00 30.04 kg/m2 Universi ty [facility] Systolic blood 2021-11-20 13:47:00 165 mm[Hg] Univer sity of pressure [facility] Diastolic blood 2021-11-20 13:47:00 83 mm[Hg] Unive rsity of [facility] Heart rate 2021-11-20 13:47:00 58 /min Universi ty [facility] Body temperature 2021-11-20 13:42:00 36.39 Amina Univ ersity [facility] Respiratory rate 2021-11-20 13:42:00 16 /min [facility] height 2021-11-20 13:42:00 162.6 cm Universi ty [facility] Body weight 2021-11-20 13:42:00 84.369 kg Universi ty [facility] BMI 2021-11-20 13:42:00 31.93 kg/m2 Universi ty [facility] Systolic blood 2021-07-14 15:18:00 142 mm[facility]Hg[facility] Diastolic blood 2021-07-14 15:18:00 76 mm[Hg] [facility] Heart rate 2021-07-14 15:18:00 61 [facility] 2021-07-14 15:18:00 [facility]6 [facility] 2021-07-14 15:18:00 [facility]802 [facility] BMI 2021-07-14 15:18:00 35.87 [facility] Systolic blood 2022-05-10 22:00:00 159 mm[Hg] Univer sity of pressure [facility] Diastolic blood 2022-05-10 22:00:00 87 mm[Hg] Unive rsity of [facility] Heart rate 2022-05-10 22:00:00 56 /min Universi ty [facility] Body temperature 2022-05-10 22:00:00 36.61 Amina Univ ersity of [facility] Respiratory rate 2022-05-10 22:00:00 17 /min Univ ersity of [facility] Oxygen saturation in 2022-05-10 22:00:00 98 /min University of Arterial blood by [facility] Pulse oximetry Branch Body weight 2022-05-10 16:29:00 78.926 kg [facility] BMI 2022-05-10 16:29:00 29.87 kg/m2 [facility] Body height 2022-05-06 20:12:00 162.6 cm [facility] Systolic blood 2022-03-05 15:23:00 167 mm[Hg] Univer sity of pressure [facility] Diastolic blood 2022-03-05 15:23:00 105 mm[Hg] Unive rsity of pressure [facility] Heart rate 2022-03-05 15:23:00 49 /min [facility] Body temperature 2022-03-05 15:18:00 36.67 Amina Univ ersity of [facility] Respiratory rate 2022-03-05 15:18:00 18 /min Univ ersity of [facility] Body height 2022-03-05 15:18:00 162.6 cm [facility] Body weight 2022-03-05 15:18:00 74.707 kg [facility] BMI 2022-03-05 15:18:00 28.27 kg/m2 [facility] Oxygen saturation in 2022-02-16 21:41:00 98 /min University of Arterial blood by [facility] Pulse oximetry Branch Systolic blood 2020-12-08 15:48:00 125 mm[Hg] [facility] Di[facility] blood 2020-12-08 15:48:00 76 mm[Hg] [facility] pressure Heart rate 2020-12-08 15:48:00 64 /min [facility] Body temperature 2020-12-08 15:48:00 36.61 Amina [facility] Respiratory rate 2020-12-08 15:48:00 17 /min [facility] Body height 2020-12-08 15:48:00 162.6 cm [facility] Body weight 2020-12-08 15:48:00 98.884 kg [facility] BMI 2020-12-08 15:48:00 37.42 kg/m2 [facility] Oxygen saturation in 2020-12-08 15:48:00 97 /min [facility] Arterial blood by Pulse oximetry Respitory Rate 2020-08-30 13:00:00 Memori al [place] Systolic (mm Hg) 2020-08-30 13:00:00 Caesar rial Marty Diastolic (mm Hg) 2020-08-30 13:00:00 Mem orial [place] Systolic (mm Hg) 2020-08-30 11:00:00 Caesar rial [place] Diastolic (mm Hg) 2020-08-30 11:00:00 Mem [facility] [place] Temperature Oral (F) 2020-08-30 11:00:00 98.4 F [facility] Respitory Rate 2020-08-30 11:00:00 [facility] [place] Respitory Rate 2020-08-30 10:00:00 Mem[facility] [place] Systolic (mm Hg) 2020-08-30 10:00:00 Caesar rial [place] Diastolic (mm Hg) 2020-08-30 10:00:00 Mem orial Marty Temperature Oral (F) 2020-08-30 00:00:00 96.9 F [facility] Temperature Oral (F) 2020-08-29 11:26:00 97.6 F [facility] Height 2020-08-29 10:30:00 162.56 cm [facility] Weight 2020-08-29 10:30:00 [facility] BMI Calculated 2020-08-29 10:30:00 [place] and[place] Marty Procedures Procedure Date / Time Performing Clinician Source Performed URINALYSIS 2022-05-10 19:36:[address] [facility] TROPONIN I 2022-05-10 18:34:[address] [facility] COMP. METABOLIC PANEL 2022-05-10 18:34:00 Home [facility] ([id number]) [facility] CBC WITH DIFF 2022-05-10 18:34:[address] [facility] XR CHEST 2 VW 2022-05-10 17:24:[address] [facility] CONSENT/REFUSAL FOR 2022-05-10 16:26:23 Doctor Unassigned, [facility] DIAGNOSIS AND TREATMENT [place] [facility] CONSENT/REFUSAL FOR 2022-05-10 16:26:09 Doctor Unasseunice, [facility] DIAGNOSIS AND TREATMENT [place] [facility] URINALYSIS 2022-05-08 22:43:00 Theresa Hickman [facility] XR CHEST 2 VW 2022-05-06 22:56:[address] [facility] COMP. METABOLIC PANEL 2022-05-06 22:14:00 Anette Olea [facility] ([id number]) Medical Branch CBC WITH DIFF 2022-05-06 22:14:[address] [facility] COVID-19 (ID NOW RAPID 2022-05-06 22:14:[address] [facility] TESTING) Medical Branch BASIC METABOLIC PANEL (NA, 2022-04-22 21:23:00 Paulette Gray [facility] K, CL, CO2, GLUCOSE, BUN, Medica l Branch CREATININE, CA) CBC WITH DIFF 2022-04-22 21:23:00 Paulette Gray [facility] CONSENT/REFUSAL FOR 2022-04-22 19:45:46 Doctor Unasseunice, [facility] DIAGNOSIS AND TREATMENT [place] [facility] SARS-COV-2 COVID-19 2022-03-05 16:09:27 [facility] DIMITRIS-SUCROSE VACCINE [address] [place] [address] YRS+, BIVALENT 0.3ML, IM, (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) FLU 2022-03-05 16:09:27 [facility] VACC(),65+YR,0.5 Medica l Branch ML,IM,ADJUVANTED,QUAD(FLUA D) FLU 2022-03-05 16:09:27 [facility] VACC(),65+YR,0.5 Medica l Branch ML,IM,ADJUVANTED,QUAD(FLUA D) SARS-COV-2 COVID-19 2022-03-05 16:09:27 [facility] DIMITRIS-SUCROSE VACCINE 12 Medical Branch YRS+, BIVALENT 0.3ML, IM, (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) MAGNESIUM 2022-02-15 09:41:00 Radha [facility] BASIC METABOLIC PANEL (NA, 2022-02-15 09:41:00 Sofia Garcia [facility] K, CL, CO2, GLUCOSE, BUN, Medica l Branch CREATININE, CA) CBC WITH DIFF 2022-02-15 09:41:00 Radha [facility] N-TERMINAL PRO-BNP 2022-02-15 09:41:00 Radha [facility] CBC WITH DIFF 2022-02-15 09:41:00 Radha [facility] BASIC METABOLIC PANEL (NA, 2022-02-15 09:41:00 Sofia Garcia [facility] K, CL, CO2, GLUCOSE, BUN, Medica l Branch CREATININE, CA) MAGNESIUM 2022-02-15 09:41:00 Radha [facility] N-TERMINAL PRO-BNP 2022-02-15 09:41:00 Radha Sofia [facility] BASIC METABOLIC PANEL (NA, 2022-02-13 09:40:00 Sofia Garcia [facility] K, CL, CO2, GLUCOSE, BUN, Medica l Branch CREATININE, CA) CBC WITH DIFF 2022-02-13 09:40:00 Radha [facility] BASIC METABOLIC PANEL (NA, 2022-02-13 09:40:00 Sofia Garcia [facility] K, CL, CO2, GLUCOSE, BUN, Medica l Branch CREATININE, CA) CBC WITH DIFF 2022-02-13 09:40:00 Radha [facility] TROPONIN I 2022-02-11 23:41:00 Radha [facility] N-TERMINAL PRO-BNP 2022-02-11 23:41:00 Radha Sofia [facility] TROPONIN I 2022-02-11 23:41:00 Radha [facility] N-TERMINAL PRO-BNP 2022-02-11 23:41:00 Sofia Garcia [facility] HB ECG ROUTINE & RHYTHM 2022-02-11 22:15:36 Sofia Garcia Uni versity [facility] TRANSTHORACIC ECHO (TTE) 2022-02-11 21:26:50 [facility] 2022-02-11 21:26:50 [facility]EL[facility] W 2022-02-11 07:45:43 Reilly Means [facility] CONTRAST [facility] CT ABDOMEN PELVIS W 2022-02-11 07:45:43 Reilly Means [facility] CONTRAST [facility] RAPID INFLUENZA A/B 2022-02-11 06:54:00 Reilly Means [facility] RAPID INFLUENZA A/B 2022-02-11 06:54:00 Reilly Means [facility] URINALYSIS 2022-02-11 06:45:00 Reilly Means [facility] URINE CULTURE 2022-02-11 06:45:00 Reilly Means [facility] URINALYSIS 2022-02-11 06:45:00 Reilly Means [facility] URINE CULTURE 2022-02-11 06:45:00 Reilly Means [facility] HB ECG ROUTINE & RHYTHM 2022-02-11 05:22:08 Reilly Means [facility] [place] HB ECG ROUTINE & RHYTHM 2022-02-11 05:22:08 Reilly Means [facility] [place] BLOOD CULTURE SCREEN 2022-02-11 04:58:00 Reilly Means [facility] TROPONIN I 2022-02-11 04:58:00 Reilly Means [facility] COMP. METABOLIC PANEL 2022-02-11 04:58:00 Reilly Means [facility] ([id number]) [facility] CBC WITH DIFF 2022-02-11 04:58:00 Reilly Means [facility] PROTHROMBIN TIME / INR 2022-02-11 04:58:00 Reilly Means [facility] ACTIVATED PARTIAL THRMPLAS 2022-02-11 04:58:00 Reilly Means [facility] N-TERMINAL PRO-BNP 2022-02-11 04:58:00 Reilly Means [facility] LACTIC ACID WHOLE BLOOD 2022-02-11 04:58:00 Reilly [facility] COVID-19 (ID NOW RAPID 2022-02-11 04:58:00 Reilly Means [facility] TESTING) Medical Branch LAB ONLY COVID 2022-02-11 04:58:00 Reilly Means [facility] CBC WITH DIFF 2022-02-11 04:58:00 Reilly Means [facility] ACTIVATED PARTIAL THRMPLAS 2022-02-11 04:58:00 Reilly Means [facility] PROTHROMBIN TIME / INR 2022-02-11 04:58:00 Reilly Means [facility] COVID-19 (ID NOW RAPID 2022-02-11 04:58:00 Reilly Means [facility] TESTING) Medical Branch COMP. METABOLIC PANEL 2022-02-11 04:58:00 Reilly Means [facility] ([id number]) [facility] TROPONIN I 2022-02-11 04:58:00 Reilly Means [facility] N-TERMINAL PRO-BNP 2022-02-11 04:58:00 Reilly Means [facility] BLOOD CULTURE SCREEN 2022-02-11 04:58:00 Reilly Means [facility] LACTIC ACID WHOLE BLOOD 2022-02-11 04:58:00 Reilly Means [facility] LAB ONLY COVID 2022-02-11 04:58:00 Reilly Means [facility] XR CHEST 1 VW 2022-02-11 04:27:42 Reilly Means [facility] XR CHEST 1 VW 2022-02-11 04:27:42 Reilly Means [facility] HOSPITAL ADMISSION 2022-02-10 05:01:00 Doctor Unassigned, [facility] [place] [facility] HOSPITAL ADMISSION 2022-02-10 05:01:00 Doctor Unassigned, [facility] [place] Medical Branch ECG 12-LEAD 2021-07-14 15:14:00 Elan Lira [facility] [id number] 2021-06-17 00:00:00 RIKY Freedman [facility] GASTROINTESTINAL PANEL 2020-12-08 22:21:00 [facility] XR ABDOMEN 1 VW 2020-12-08 18:06:32 Eliseo Arce spital OR [place] < 1 HOUR 2020-09-05 22:39:00 Eliseo Arce spital SURGICAL PATHOLOGY REQUEST 2020-09-05 21:54:00 [facility] XR CHEST 1 VW PORTABLE 2020-09-05 19:55:00 Eliseo Arce [facility] DISCHARGE PATIENT 2020-09-05 17:27:55 Lucas Harris [facility] [place] AN ELECTIVE 2020-09-05 16:47:23 Kirit Flood [facility] ENDOTRACHEAL AIRWAY EGD, INTRAOPERATIVE 2020-09-05 16:27[facility]00 [facility] 2020-09-05 [facility]00 [facility] TIME (PTT) M. PROTHROMBIN TIME WITH INR 2020-09-05 15:04:00 [facility] M. Plan of Care Planned Activity Planned Date Details Comments Source Future Scheduled 2022-09-10 SHINGLES VACCINES (1 Met [facility] Test 15:06:53 of 2) [code = SHINGLES VACCINES (1 of 2)] Future Scheduled 2022-09-10 BREAST CANCER [facility] Test 15:06:53 SCREENING [code = BREAST CANCER SCREENING] Future Scheduled 2022-09-10 COLONOSCOPY SCREENING [facility] Test 15:06:53 [code = COLONOSCOPY SCREENING] Future Scheduled 2022-09-10 HEPATITIS B VACCINES Met [facility] Test 15:06:53 (1 of 3 - Risk 3-dose series) [code = HEPATITIS B VACCINES (1 of 3 - Risk 3-dose series)] Future Scheduled 2022-09-10 COVID-19 VACCINE (3 - [facility] Test 15:06:53 Booster for Pfizer series) [code = COVID-19 VACCINE (3 - Booster for Pfizer series)] Future Scheduled 2022-09-10 65+ PNEUMOCOCCAL [facility] Test 15:06:53 VACCINE (4 - PPSV23 if available, else PCV20) [code = 65+ PNEUMOCOCCAL VACCINE (4 - PPSV23 if available, else PCV20)] Future Scheduled 2022-09-10 INFLUENZA VACCINE Method [facility] Test 15:06:53 [code = INFLUENZA VACCINE] Future Scheduled 2022-09-10 SHINGLES VACCINES (1 Met [facility] Test 15:06:53 of 2) [code = SHINGLES VACCINES (1 of 2)] Future Scheduled 2022-09-10 BREAST CANCER [facility] Test 15:06:53 SCREENING [code = BREAST CANCER SCREENING] Future Scheduled 2022-09-10 COLONOSCOPY SCREENING [facility] Test 15:06:53 [code = COLONOSCOPY SCREENING] Future Scheduled 2022-09-10 HEPATITIS B VACCINES Met [facility] Test 15:06:53 (1 of 3 - Risk 3-dose series) [code = HEPATITIS B VACCINES (1 of 3 - Risk 3-dose series)] Future Scheduled 2022-09-10 COVID-19 VACCINE (3 - Me [facility] Test 15:06:53 Booster for Pfizer series) [code = COVID-19 VACCINE (3 - Booster for Pfizer series)] Future Scheduled 2022-09-10 65+ [facility]AL [facility]:06[facility]53 VACCINE (4 - PPSV23 if available, else PCV20) [code = 65+ PNEUMOCOCCAL VACCINE (4 - PPSV23 if available, else PCV20)] Future Scheduled 2022-09-10 INFLUENZA VACCINE Method [facility] Test 15:06:53 [code = INFLUENZA VACCINE] Future Scheduled 2022-08-26 SHINGLES VACCINES (1 Met [facility] Test 14:43:48 of 2) [code = SHINGLES VACCINES (1 of 2)] Future Scheduled 2022-08-26 BREAST CANCER [facility] Test 14:43:48 SCREENING [code = BREAST CANCER SCREENING] Future Scheduled 2022-08-26 COLONOSCOPY SCREENING [facility] Test 14:43:48 [code = COLONOSCOPY SCREENING] Future Scheduled 2022-08-26 HEPATITIS B VACCINES Met [facility] Test 14:43:48 (1 of 3 - Risk 3-dose series) [code = HEPATITIS B VACCINES (1 of 3 - Risk 3-dose series)] Future Scheduled 2022-08-26 COVID-19 VACCINE (3 - Me [facility] Hospital Test 14:43:48 Booster for Pfizer series) [code = COVID-19 VACCINE (3 - Booster for Pfizer series)] Future Scheduled 2022-08-26 65+ [facility]CCAL [facility] 14:43:48 VACCINE (4 - PPSV23 if available, else PCV20) [code = 65+ PNEUMOCOCCAL VACCINE (4 - PPSV23 if available, else PCV20)] Future Scheduled 2022-08-26 INFLUENZA VACCINE Method [facility] Test 14:43:48 [code = INFLUENZA VACCINE] Future Scheduled 2022-08-07 SHINGLES VACCINES (1 Met [facility] Test 23:30:11 of 2) [code = SHINGLES VACCINES (1 of 2)] Future Scheduled 2022-08-07 BREAST CANCER [facility] Test 23:30:11 SCREENING [code = BREAST CANCER SCREENING] Future Scheduled 2022-08-07 COLONOSCOPY SCREENING [facility] Test 23:30:11 [code = COLONOSCOPY SCREENING] Future Scheduled 2022-08-07 HEPATITIS B VACCINES Met [facility] Test 23:30:11 (1 of 3 - Risk 3-dose series) [code = HEPATITIS B VACCINES (1 of 3 - Risk 3-dose series)] Future Scheduled 2022-08-07 COVID-19 VACCINE (3 - [facility] Test 23:30:11 Booster for Pfizer series) [code = COVID-19 VACCINE (3 - Booster for Pfizer series)] Future Scheduled 2022-08-07 65+ [facility]CCAL [facility] 23:30:11 VACCINE (4 - PPSV23 if available, else PCV20) [code = 65+ PNEUMOCOCCAL VACCINE (4 - PPSV23 if available, else PCV20)] Future Scheduled 2022-08-07 INFLUENZA VACCINE Method [facility] Test 23:30:11 [code = INFLUENZA VACCINE] Future Scheduled 2022-08-07 SHINGLES VACCINES (1 Met [facility] Test 23:30:11 of 2) [code = SHINGLES VACCINES (1 of 2)] Future Scheduled 2022-08-07 BREAST CANCER [facility] Test 23:30:11 SCREENING [code = BREAST CANCER SCREENING] Future Scheduled 2022-08-07 COLONOSCOPY SCREENING [facility] Test 23:30:11 [code = COLONOSCOPY SCREENING] Future Scheduled 2022-08-07 HEPATITIS B VACCINES Met [facility] Test 23:30:11 (1 of 3 - Risk 3-dose series) [code = HEPATITIS B VACCINES (1 of 3 - Risk 3-dose series)] Future Scheduled 2022-08-07 COVID-19 VACCINE (3 - Me [facility] Test 23:30:11 Booster for Pfizer series) [code = COVID-19 VACCINE (3 - Booster for Pfizer series)] Future Scheduled 2022-08-07 65+ [facility]OCOCCAL [facility] Test 23:30:11 VACCINE (4 - PPSV23 if available, else PCV20) [code = 65+ PNEUMOCOCCAL VACCINE (4 - PPSV23 if available, else PCV20)] Future Scheduled 2022-08-07 INFLUENZA VACCINE Method [facility] Test 23:30:11 [code = INFLUENZA VACCINE] Future Scheduled 2022-08-06 SHINGLES VACCINES (1 Met [facility] Test 15:48:02 of 2) [code = SHINGLES VACCINES (1 of 2)] Future Scheduled 2022-08-06 BREAST CANCER [facility] Test 15:48:02 SCREENING [code = BREAST CANCER SCREENING] Future Scheduled 2022-08-06 COLONOSCOPY SCREENING [facility] Test 15:48:02 [code = COLONOSCOPY SCREENING] Future Scheduled 2022-08-06 HEPATITIS B VACCINES Met [facility] Test 15:48:02 (1 of 3 - Risk 3-dose series) [code = HEPATITIS B VACCINES (1 of 3 - Risk 3-dose series)] Future Scheduled 2022-08-06 COVID-19 VACCINE (3 - [facility] Test 15:48:02 Booster for Pfizer series) [code = COVID-19 VACCINE (3 - Booster for Pfizer series)] Future Scheduled 2022-08-06 65+ [facility]AL [facility] 15:48:02 VACCINE (4 - PPSV23 if available, else PCV20) [code = 65+ PNEUMOCOCCAL VACCINE (4 - PPSV23 if available, else PCV20)] Future Scheduled 2022-08-06 INFLUENZA VACCINE Method [facility] Test 15:48:02 [code = INFLUENZA VACCINE] Future Scheduled 2022-06-11 SHINGLES VACCINES (1 Met [facility] Test 16:10:12 of 2) [code = SHINGLES VACCINES (1 of 2)] Future Scheduled 2022-06-11 BREAST CANCER [facility] Test 16:10:12 SCREENING [code = BREAST CANCER SCREENING] Future Scheduled 2022-06-11 COLONOSCOPY SCREENING [facility] Test 16:10:12 [code = COLONOSCOPY SCREENING] Future Scheduled 2022-06-11 HEPATITIS B VACCINES Met [facility] Test 16:10:12 (1 of 3 - Risk 3-dose series) [code = HEPATITIS B VACCINES (1 of 3 - Risk 3-dose series)] Future Scheduled 2022-06-11 COVID-19 VACCINE (3 - Me [facility] Test 16:10:12 Booster for Pfizer series) [code = COVID-19 VACCINE (3 - Booster for Pfizer series)] Future Scheduled 2022-06-11 65+ [facility]OCOCCAL [facility] Test 16:10:12 VACCINE (4 - PPSV23 if available, else PCV20) [code = 65+ PNEUMOCOCCAL VACCINE (4 - PPSV23 if available, else PCV20)] Future Scheduled 2022-06-11 INFLUENZA VACCINE Method [facility] Test 16:10:12 [code = INFLUENZA VACCINE] Future Scheduled 2022-06-11 SHINGLES VACCINES (1 Met [facility] Test 16:10:12 of 2) [code = SHINGLES VACCINES (1 of 2)] Future Scheduled 2022-06-11 BREAST CANCER [facility] Test 16:10:12 SCREENING [code = BREAST CANCER SCREENING] Future Scheduled 2022-06-11 COLONOSCOPY SCREENING [facility] Test 16:10:12 [code = COLONOSCOPY SCREENING] Future Scheduled 2022-06-11 HEPATITIS B VACCINES Met [facility] Test 16:10:12 (1 of 3 - Risk 3-dose series) [code = HEPATITIS B VACCINES (1 of 3 - Risk 3-dose series)] Future Scheduled 2022-06-11 COVID-19 VACCINE (3 - [facility] Hospital Test 16:10:12 Booster for Pfizer series) [code = COVID-19 VACCINE (3 - Booster for Pfizer series)] Future Scheduled 2022-06-11 65+ [facility]AL [facility] 16:10:12 VACCINE (4 - PPSV23 if available, else PCV20) [code = 65+ PNEUMOCOCCAL VACCINE (4 - PPSV23 if available, else PCV20)] Future Scheduled 2022-06-11 INFLUENZA VACCINE Method [facility] Test 16:10:12 [code = INFLUENZA VACCINE] Future Scheduled 2022-06-11 SHINGLES VACCINES (1 Met [facility] Test 16:10:12 of 2) [code = SHINGLES VACCINES (1 of 2)] Future Scheduled 2022-06-11 BREAST CANCER [facility] Test 16:10:12 SCREENING [code = BREAST CANCER SCREENING] Future Scheduled 2022-06-11 COLONOSCOPY SCREENING [facility] Test 16:10:12 [code = COLONOSCOPY SCREENING] Future Scheduled 2022-06-11 HEPATITIS B VACCINES Met [facility] Test 16:10:12 (1 of 3 - Risk 3-dose series) [code = HEPATITIS B VACCINES (1 of 3 - Risk 3-dose series)] Future Scheduled 2022-06-11 COVID-19 VACCINE (3 - Me [facility] Test 16:10:12 Booster for Pfizer series) [code = COVID-19 VACCINE (3 - Booster for Pfizer series)] Future Scheduled 2022-06-11 65+ [facility]CCAL [facility] Test 16:10:12 VACCINE (4 - PPSV23 if available, else PCV20) [code = 65+ PNEUMOCOCCAL VACCINE (4 - PPSV23 if available, else PCV20)] Future Scheduled 2022-06-11 INFLUENZA VACCINE Method [facility] Test 16:10:12 [code = INFLUENZA VACCINE] Future Scheduled 2022-06-11 SHINGLES VACCINES (1 Met [facility] Test 16:10:12 of 2) [code = SHINGLES VACCINES (1 of 2)] Future Scheduled 2022-06-11 BREAST CANCER [facility] Test 16:10:12 SCREENING [code = BREAST CANCER SCREENING] Future Scheduled 2022-06-11 COLONOSCOPY SCREENING [facility] Test 16:10:12 [code = COLONOSCOPY SCREENING] Future Scheduled 2022-06-11 HEPATITIS B VACCINES Met [facility] Test 16:10:12 (1 of 3 - Risk 3-dose series) [code = HEPATITIS B VACCINES (1 of 3 - Risk 3-dose series)] Future Scheduled 2022-06-11 COVID-19 VACCINE (3 - Me [facility] Test 16:10:12 Booster for Pfizer series) [code = COVID-19 VACCINE (3 - Booster for Pfizer series)] Future Scheduled 2022-06-11 65+ [facility]OCOCCAL [facility] Test 16:10:12 VACCINE (4 - PPSV23 if available, else PCV20) [code = 65+ PNEUMOCOCCAL VACCINE (4 - PPSV23 if available, else PCV20)] Future Scheduled 2022-06-11 INFLUENZA VACCINE Method [facility] Test 16:10:12 [code = INFLUENZA VACCINE] Future Scheduled 2022-06-11 SHINGLES VACCINES (1 Met [facility] Test 16:10:12 of 2) [code = SHINGLES VACCINES (1 of 2)] Future Scheduled 2022-06-11 BREAST CANCER [facility] Test 16:10:12 SCREENING [code = BREAST CANCER SCREENING] Future Scheduled 2022-06-11 COLONOSCOPY SCREENING [facility] Test 16:10:12 [code = COLONOSCOPY SCREENING] Future Scheduled 2022-06-11 HEPATITIS B VACCINES Met [facility] Test 16:10:12 (1 of 3 - Risk 3-dose series) [code = HEPATITIS B VACCINES (1 of 3 - Risk 3-dose series)] Future Scheduled 2022-06-11 COVID-19 VACCINE (3 - [facility] Test 16:10:12 Booster for Pfizer series) [code = COVID-19 VACCINE (3 - Booster for Pfizer series)] Future Scheduled 2022-06-11 65+ [facility] 16:10:12 VACCINE (4 - PPSV23 if available, else PCV20) [code = 65+ PNEUMOCOCCAL VACCINE (4 - PPSV23 if available, else PCV20)] Future Scheduled 2022-06-11 INFLUENZA VACCINE Method [facility] Test 16:10:12 [code = INFLUENZA VACCINE] Future Scheduled 2022-06-11 SHINGLES VACCINES (1 Met [facility] Test 16:10:12 of 2) [code = SHINGLES VACCINES (1 of 2)] Future Scheduled 2022-06-11 BREAST CANCER [facility] Test 16:10:12 SCREENING [code = BREAST CANCER SCREENING] Future Scheduled 2022-06-11 COLONOSCOPY SCREENING [facility] Test 16:10:12 [code = COLONOSCOPY SCREENING] Future Scheduled 2022-06-11 HEPATITIS B VACCINES Met [facility] Test 16:10:12 (1 of 3 - Risk 3-dose series) [code = HEPATITIS B VACCINES (1 of 3 - Risk 3-dose series)] Future Scheduled 2022-06-11 COVID-19 VACCINE (3 - Me [facility] Test 16:10:12 Booster for Pfizer series) [code = COVID-19 VACCINE (3 - Booster for Pfizer series)] Future Scheduled 2022-06-11 65+ [facility] 16:10:12 VACCINE (4 - PPSV23 if available, else PCV20) [code = 65+ PNEUMOCOCCAL VACCINE (4 - PPSV23 if available, else PCV20)] Future Scheduled 2022-06-11 INFLUENZA VACCINE Method [facility] Test 16:10:12 [code = INFLUENZA VACCINE] Future Scheduled 2022-06-11 SHINGLES VACCINES (1 Met [facility] Test 16:10:12 of 2) [code = SHINGLES VACCINES (1 of 2)] Future Scheduled 2022-06-11 BREAST CANCER [facility] Test 16:10:12 SCREENING [code = BREAST CANCER SCREENING] Future Scheduled 2022-06-11 COLONOSCOPY SCREENING Me [facility] Test 16:10:12 [code = COLONOSCOPY SCREENING] Future Scheduled 2022-06-11 HEPATITIS B VACCINES Met [facility] Test 16:10:12 (1 of 3 - Risk 3-dose series) [code = HEPATITIS B VACCINES (1 of 3 - Risk 3-dose series)] Future Scheduled 2022-06-11 COVID-19 VACCINE (3 - Me [facility] Test 16:10:12 Booster for Pfizer series) [code = COVID-19 VACCINE (3 - Booster for Pfizer series)] Future Scheduled 2022-06-11 65+ [facility] 16:10:12 VACCINE (4 - PPSV23 if available, else PCV20) [code = 65+ PNEUMOCOCCAL VACCINE (4 - PPSV23 if available, else PCV20)] Future Scheduled 2022-06-11 INFLUENZA VACCINE Method [facility] Test 16:10:12 [code = INFLUENZA VACCINE] Future Scheduled 2022-06-11 SHINGLES VACCINES (1 Met [facility] Test 16:10:12 of 2) [code = SHINGLES VACCINES (1 of 2)] Future Scheduled 2022-06-11 BREAST CANCER [facility] Test 16:10:12 SCREENING [code = BREAST CANCER SCREENING] Future Scheduled 2022-06-11 COLONOSCOPY SCREENING Me [facility] Test 16:10:12 [code = COLONOSCOPY SCREENING] Future Scheduled 2022-06-11 HEPATITIS B VACCINES Met [facility] Test 16:10:12 (1 of 3 - Risk 3-dose series) [code = HEPATITIS B VACCINES (1 of 3 - Risk 3-dose series)] Future Scheduled 2022-06-11 COVID-19 VACCINE (3 - Me [facility] Test 16:10:12 Booster for Pfizer series) [code = COVID-19 VACCINE (3 - Booster for Pfizer series)] Future Scheduled 2022-06-11 65+ [facility] 16:10:12 VACCINE (4 - PPSV23 if available, else PCV20) [code = 65+ PNEUMOCOCCAL VACCINE (4 - PPSV23 if available, else PCV20)] Future Scheduled 2022-06-11 INFLUENZA VACCINE Method [facility] Test 16:10:12 [code = INFLUENZA VACCINE] Future Scheduled 2022-06-11 SHINGLES VACCINES (1 Met [facility] Test 16:10:12 of 2) [code = SHINGLES VACCINES (1 of 2)] Future Scheduled 2022-06-11 BREAST CANCER [facility] Test 16:10:12 SCREENING [code = BREAST CANCER SCREENING] Future Scheduled 2022-06-11 COLONOSCOPY SCREENING [facility] Test 16:10:12 [code = COLONOSCOPY SCREENING] Future Scheduled 2022-06-11 HEPATITIS B VACCINES Met [facility] Test 16:10:12 (1 of 3 - Risk 3-dose series) [code = HEPATITIS B VACCINES (1 of 3 - Risk 3-dose series)] Future Scheduled 2022-06-11 COVID-19 VACCINE (3 - Me [facility] Test 16:10:12 Booster for Pfizer series) [code = COVID-19 VACCINE (3 - Booster for Pfizer series)] Future Scheduled 2022-06-11 65+ [facility] 16:10:12 VACCINE (4 - PPSV23 if available, else PCV20) [code = 65+ PNEUMOCOCCAL VACCINE (4 - PPSV23 if available, else PCV20)] Future Scheduled 2022-06-11 INFLUENZA VACCINE Method [facility] Test 16:10:12 [code = INFLUENZA VACCINE] Future Scheduled 2022-05-10 SHINGLES VACCINES (1 Met [facility] Test 10:21:35 of 2) [code = SHINGLES VACCINES (1 of 2)] Future Scheduled 2022-05-10 BREAST CANCER [facility] Test 10:21:35 SCREENING [code = BREAST CANCER SCREENING] Future Scheduled 2022-05-10 COLONOSCOPY SCREENING [facility] Test 10:21:35 [code = COLONOSCOPY SCREENING] Future Scheduled 2022-05-10 HEPATITIS B VACCINES Met [facility] Test 10:21:35 (1 of 3 - Risk 3-dose series) [code = HEPATITIS B VACCINES (1 of 3 - Risk 3-dose series)] Future Scheduled 2022-05-10 COVID-19 VACCINE (3 - Me [facility] Test 10:21:35 Booster for Pfizer series) [code = COVID-19 VACCINE (3 - Booster for Pfizer series)] Future Scheduled 2022-05-10 65+ [facility] Test 10:21:35 VACCINE (4 - PPSV23 if available, else PCV20) [code = 65+ PNEUMOCOCCAL VACCINE (4 - PPSV23 if available, else PCV20)] Future Scheduled 2022-05-10 INFLUENZA VACCINE Method [facility] Test 10:21:35 [code = INFLUENZA VACCINE] Future Scheduled 2022-05-10 SHINGLES VACCINES (1 Met [facility] Test 10:21:35 of 2) [code = SHINGLES VACCINES (1 of 2)] Future Scheduled 2022-05-10 BREAST CANCER [facility] Test 10:21:35 SCREENING [code = BREAST CANCER SCREENING] Future Scheduled 2022-05-10 COLONOSCOPY SCREENING [facility] Test 10:21:35 [code = COLONOSCOPY SCREENING] Future Scheduled 2022-05-10 HEPATITIS B VACCINES Met [facility] Test 10:21:35 (1 of 3 - Risk 3-dose series) [code = HEPATITIS B VACCINES (1 of 3 - Risk 3-dose series)] Future Scheduled 2022-05-10 COVID-19 VACCINE (3 - Me [facility] Test 10:21:35 Booster for Pfizer series) [code = COVID-19 VACCINE (3 - Booster for Pfizer series)] Future Scheduled 2022-05-10 65+ [facility] 10:21:35 VACCINE (4 - PPSV23 if available, else PCV20) [code = 65+ PNEUMOCOCCAL VACCINE (4 - PPSV23 if available, else PCV20)] Future Scheduled 2022-05-10 INFLUENZA VACCINE Method [facility] Test 10:21:35 [code = INFLUENZA VACCINE] Future Scheduled 2022-05-06 SHINGLES VACCINES (1 Met [facility] Test 14:03:13 of 2) [code = SHINGLES VACCINES (1 of 2)] Future Scheduled 2022-05-06 BREAST CANCER [facility] Test 14:03:13 SCREENING [code = BREAST CANCER SCREENING] Future Scheduled 2022-05-06 COLONOSCOPY SCREENING [facility] Test 14:03:13 [code = COLONOSCOPY SCREENING] Future Scheduled 2022-05-06 HEPATITIS B VACCINES Met [facility] Test 14:03:13 (1 of 3 - Risk 3-dose series) [code = HEPATITIS B VACCINES (1 of 3 - Risk 3-dose series)] Future Scheduled 2022-05-06 COVID-19 VACCINE (3 - [facility] Test 14:03:13 Booster for Pfizer series) [code = COVID-19 VACCINE (3 - Booster for Pfizer series)] Future Scheduled 2022-05-06 65+ PNEUMOCOCCAL [facility] Test 14:03:13 VACCINE (4 - PPSV23 if available, else PCV20) [code = 65+ PNEUMOCOCCAL VACCINE (4 - PPSV23 if available, else PCV20)] Future Scheduled 2022-05-06 INFLUENZA VACCINE Method [facility] Test 14:03:13 [code = INFLUENZA VACCINE] Future Scheduled 2022-04-30 SHINGLES VACCINES (1 Met [facility] Test 01:07:32 of 2) [code = SHINGLES VACCINES (1 of 2)] Future Scheduled 2022-04-30 BREAST CANCER [facility] Test 01:07:32 SCREENING [code = BREAST CANCER SCREENING] Future Scheduled 2022-04-30 COLONOSCOPY SCREENING [facility] Test 01:07:32 [code = COLONOSCOPY SCREENING] Future Scheduled 2022-04-30 HEPATITIS B VACCINES Met [facility] Test 01:07:32 (1 of 3 - Risk 3-dose series) [code = HEPATITIS B VACCINES (1 of 3 - Risk 3-dose series)] Future Scheduled 2022-04-30 COVID-19 VACCINE (3 - [facility] Test 01:07:32 Booster for Pfizer series) [code = COVID-19 VACCINE (3 - Booster for Pfizer series)] Future Scheduled 2022-04-30 65+ [facility] 01:07:32 VACCINE (4 - PPSV23 if available, else PCV20) [code = 65+ PNEUMOCOCCAL VACCINE (4 - PPSV23 if available, else PCV20)] Future Scheduled 2022-04-30 INFLUENZA VACCINE Method [facility] Test 01:07:32 [code = INFLUENZA VACCINE] Future Scheduled 2022-04-30 SHINGLES VACCINES (1 Met [facility] Test 01:07:32 of 2) [code = SHINGLES VACCINES (1 of 2)] Future Scheduled 2022-04-30 BREAST CANCER [facility] Test 01:07:32 SCREENING [code = BREAST CANCER SCREENING] Future Scheduled 2022-04-30 COLONOSCOPY SCREENING [facility] Test 01:07:32 [code = COLONOSCOPY SCREENING] Future Scheduled 2022-04-30 HEPATITIS B VACCINES Met [facility] Test 01:07:32 (1 of 3 - Risk 3-dose series) [code = HEPATITIS B VACCINES (1 of 3 - Risk 3-dose series)] Future Scheduled 2022-04-30 COVID-19 VACCINE (3 - [facility] Test 01:07:32 Booster for Pfizer series) [code = COVID-19 VACCINE (3 - Booster for Pfizer series)] Future Scheduled 2022-04-30 65+ [facility] 01:07:32 VACCINE (4 - PPSV23 if available, else PCV20) [code = 65+ PNEUMOCOCCAL VACCINE (4 - PPSV23 if available, else PCV20)] Future Scheduled 2022-04-30 INFLUENZA VACCINE Method [facility] Test 01:07:32 [code = INFLUENZA VACCINE] Future Scheduled 2022-04-30 SHINGLES VACCINES (1 Met [facility] Test 01:07:32 of 2) [code = SHINGLES VACCINES (1 of 2)] Future Scheduled 2022-04-30 BREAST CANCER [facility] Test 01:07:32 SCREENING [code = BREAST CANCER SCREENING] Future Scheduled 2022-04-30 COLONOSCOPY SCREENING [facility] Test 01:07:32 [code = COLONOSCOPY SCREENING] Future Scheduled 2022-04-30 HEPATITIS B VACCINES Met [facility] Test 01:07:32 (1 of 3 - Risk 3-dose series) [code = HEPATITIS B VACCINES (1 of 3 - Risk 3-dose series)] Future Scheduled 2022-04-30 COVID-19 VACCINE (3 - [facility] Test 01:07:32 Booster for Pfizer series) [code = COVID-19 VACCINE (3 - Booster for Pfizer series)] Future Scheduled 2022-04-30 65+ PNEUMOCOCCAL [facility] Test 01:07:32 VACCINE (4 - PPSV23 if available, else PCV20) [code = 65+ PNEUMOCOCCAL VACCINE (4 - PPSV23 if available, else PCV20)] Future Scheduled 2022-04-30 INFLUENZA VACCINE Method [facility] Test 01:07:32 [code = INFLUENZA VACCINE] Future Scheduled 2022-04-25 SHINGLES VACCINES (1 Met [facility] Test 01:45:02 of 2) [code = SHINGLES VACCINES (1 of 2)] Future Scheduled 2022-04-25 BREAST CANCER [facility] Test 01:45:02 SCREENING [code = BREAST CANCER SCREENING] Future Scheduled 2022-04-25 COLONOSCOPY SCREENING [facility] Test 01:45:02 [code = COLONOSCOPY SCREENING] Future Scheduled 2022-04-25 HEPATITIS B VACCINES Met [facility] Test 01:45:02 (1 of 3 - Risk 3-dose series) [code = HEPATITIS B VACCINES (1 of 3 - Risk 3-dose series)] Future Scheduled 2022-04-25 COVID-19 VACCINE (3 - Me [facility] Test 01:45:02 Booster for Pfizer series) [code = COVID-19 VACCINE (3 - Booster for Pfizer series)] Future Scheduled 2022-04-25 65+ PNEUMOCOCCAL [facility] Test 01:45:02 VACCINE (4 - PPSV23 if available, else PCV20) [code = 65+ PNEUMOCOCCAL VACCINE (4 - PPSV23 if available, else PCV20)] Future Scheduled 2022-04-25 INFLUENZA VACCINE Method [facility] Test 01:45:02 [code = INFLUENZA VACCINE] Future Scheduled 2022-03-25 SHINGLES VACCINES (1 Met [facility] Test 14:48:42 of 2) [code = SHINGLES VACCINES (1 of 2)] Future Scheduled 2022-03-25 BREAST CANCER [facility] Test 14:48:42 SCREENING [code = BREAST CANCER SCREENING] Future Scheduled 2022-03-25 COLONOSCOPY SCREENING [facility] Test 14:48:42 [code = COLONOSCOPY SCREENING] Future Scheduled 2022-03-25 HEPATITIS B VACCINES Met [facility] Test 14:48:42 (1 of 3 - Risk 3-dose series) [code = HEPATITIS B VACCINES (1 of 3 - Risk 3-dose series)] Future Scheduled 2022-03-25 COVID-19 VACCINE (3 - Me [facility] Test 14:48:42 Booster for Pfizer series) [code = COVID-19 VACCINE (3 - Booster for Pfizer series)] Future Scheduled 2022-03-25 65+ [facility] 14:48:42 VACCINE (4 - PPSV23 if available, else PCV20) [code = 65+ PNEUMOCOCCAL VACCINE (4 - PPSV23 if available, else PCV20)] Future Scheduled 2022-03-25 INFLUENZA VACCINE Method [facility] Test 14:48:42 [code = INFLUENZA VACCINE] Future Scheduled 2022-03-25 SHINGLES VACCINES (1 Met [facility] Test 14:48:42 of 2) [code = SHINGLES VACCINES (1 of 2)] Future Scheduled 2022-03-25 BREAST CANCER [facility] Test 14:48:42 SCREENING [code = BREAST CANCER SCREENING] Future Scheduled 2022-03-25 COLONOSCOPY SCREENING [facility] Test 14:48:42 [code = COLONOSCOPY SCREENING] Future Scheduled 2022-03-25 HEPATITIS B VACCINES Met [facility] Test 14:48:42 (1 of 3 - Risk 3-dose series) [code = HEPATITIS B VACCINES (1 of 3 - Risk 3-dose series)] Future Scheduled 2022-03-25 COVID-19 VACCINE (3 - [facility] Test 14:48:42 Booster for Pfizer series) [code = COVID-19 VACCINE (3 - Booster for Pfizer series)] Future Scheduled 2022-03-25 65+ [facility] 14:48:42 VACCINE (4 - PPSV23 if available, else PCV20) [code = 65+ PNEUMOCOCCAL VACCINE (4 - PPSV23 if available, else PCV20)] Future Scheduled 2022-03-25 INFLUENZA VACCINE Method [facility] Test 14:48:42 [code = INFLUENZA VACCINE] Future Scheduled 2022-03-25 SHINGLES VACCINES (1 Met [facility] Test 14:48:42 of 2) [code = SHINGLES VACCINES (1 of 2)] Future Scheduled 2022-03-25 BREAST CANCER [facility] Test 14:48:42 SCREENING [code = BREAST CANCER SCREENING] Future Scheduled 2022-03-25 COLONOSCOPY SCREENING Me [facility] Test 14:48:42 [code = COLONOSCOPY SCREENING] Future Scheduled 2022-03-25 HEPATITIS B VACCINES Met [facility] Test 14:48:42 (1 of 3 - Risk 3-dose series) [code = HEPATITIS B VACCINES (1 of 3 - Risk 3-dose series)] Future Scheduled 2022-03-25 COVID-19 VACCINE (3 - Me [facility] Test 14:48:42 Booster for Pfizer series) [code = COVID-19 VACCINE (3 - Booster for Pfizer series)] Future Scheduled 2022-03-25 65+ [facility]CCAL [facility] 14:48:42 VACCINE (4 - PPSV23 if available, else PCV20) [code = 65+ PNEUMOCOCCAL VACCINE (4 - PPSV23 if available, else PCV20)] Future Scheduled 2022-03-25 INFLUENZA VACCINE Method [facility] Test 14:48:42 [code = INFLUENZA VACCINE] Future Scheduled 2022-03-25 SHINGLES VACCINES (1 Met [facility] Test 14:48:42 of 2) [code = SHINGLES VACCINES (1 of 2)] Future Scheduled 2022-03-25 BREAST CANCER [facility] Test 14:48:42 SCREENING [code = BREAST CANCER SCREENING] Future Scheduled 2022-03-25 COLONOSCOPY SCREENING [facility] Test 14:48:42 [code = COLONOSCOPY SCREENING] Future Scheduled 2022-03-25 HEPATITIS B VACCINES Met [facility] Test 14:48:42 (1 of 3 - Risk 3-dose series) [code = HEPATITIS B VACCINES (1 of 3 - Risk 3-dose series)] Future Scheduled 2022-03-25 COVID-19 VACCINE (3 - Me [facility] Test 14:48:42 Booster for Pfizer series) [code = COVID-19 VACCINE (3 - Booster for Pfizer series)] Future Scheduled 2022-03-25 65+ [facility] 14:48:42 VACCINE (4 - PPSV23 if available, else PCV20) [code = 65+ PNEUMOCOCCAL VACCINE (4 - PPSV23 if available, else PCV20)] Future Scheduled 2022-03-25 INFLUENZA VACCINE Method [facility] Test 14:48:42 [code = INFLUENZA VACCINE] Future Scheduled 2022-03-25 SHINGLES VACCINES (1 Met [facility] Test 14:48:42 of 2) [code = SHINGLES VACCINES (1 of 2)] Future Scheduled 2022-03-25 BREAST CANCER [facility] Test 14:48:42 SCREENING [code = BREAST CANCER SCREENING] Future Scheduled 2022-03-25 COLONOSCOPY SCREENING [facility] Test 14:48:42 [code = COLONOSCOPY SCREENING] Future Scheduled 2022-03-25 HEPATITIS B VACCINES Met [facility] Test 14:48:42 (1 of 3 - Risk 3-dose series) [code = HEPATITIS B VACCINES (1 of 3 - Risk 3-dose series)] Future Scheduled 2022-03-25 COVID-19 VACCINE (3 - [facility] Test 14:48:42 Booster for Pfizer series) [code = COVID-19 VACCINE (3 - Booster for Pfizer series)] Future Scheduled 2022-03-25 65+ [facility]AL [facility] 14:48:42 VACCINE (4 - PPSV23 if available, else PCV20) [code = 65+ PNEUMOCOCCAL VACCINE (4 - PPSV23 if available, else PCV20)] Future Scheduled 2022-03-25 INFLUENZA VACCINE Method [facility] Test 14:48:42 [code = INFLUENZA VACCINE] Future Scheduled 2022-03-25 SHINGLES VACCINES (1 Met [facility] Test 14:48:42 of 2) [code = SHINGLES VACCINES (1 of 2)] Future Scheduled 2022-03-25 BREAST CANCER [facility] Test 14:48:42 SCREENING [code = BREAST CANCER SCREENING] Future Scheduled 2022-03-25 COLONOSCOPY SCREENING [facility] Test 14:48:42 [code = COLONOSCOPY SCREENING] Future Scheduled 2022-03-25 HEPATITIS B VACCINES Met [facility] Test 14:48:42 (1 of 3 - Risk 3-dose series) [code = HEPATITIS B VACCINES (1 of 3 - Risk 3-dose series)] Future Scheduled 2022-03-25 COVID-19 VACCINE (3 - [facility] Test 14:48:42 Booster for Pfizer series) [code = COVID-19 VACCINE (3 - Booster for Pfizer series)] Future Scheduled 2022-03-25 65+ [facility] 14:48:42 VACCINE (4 - PPSV23 if available, else PCV20) [code = 65+ PNEUMOCOCCAL VACCINE (4 - PPSV23 if available, else PCV20)] Future Scheduled 2022-03-25 INFLUENZA VACCINE Method [facility] Test 14:48:42 [code = INFLUENZA VACCINE] Future Scheduled 2022-03-25 SHINGLES VACCINES (1 Met [facility] Test 14:48:42 of 2) [code = SHINGLES VACCINES (1 of 2)] Future Scheduled 2022-03-25 BREAST CANCER [facility] Test 14:48:42 SCREENING [code = BREAST CANCER SCREENING] Future Scheduled 2022-03-25 COLONOSCOPY SCREENING [facility] Test 14:48:42 [code = COLONOSCOPY SCREENING] Future Scheduled 2022-03-25 HEPATITIS B VACCINES Met [facility] Test 14:48:42 (1 of 3 - Risk 3-dose series) [code = HEPATITIS B VACCINES (1 of 3 - Risk 3-dose series)] Future Scheduled 2022-03-25 COVID-19 VACCINE (3 - [facility] Test 14:48:42 Booster for Pfizer [...] Future Scheduled 2022-03-25 SHINGLES VACCINES (1 Met [facility] Test 14:48:42 of 2) [code = SHINGLES VACCINES (1 of 2)] Future Scheduled 2022-03-25 BREAST CANCER [facility] Test 14:48:42 SCREENING [code = BREAST CANCER SCREENING] Future Scheduled 2022-03-25 COLONOSCOPY SCREENING [facility] Test 14:48:42 [code = COLONOSCOPY SCREENING] Future Scheduled 2022-03-25 HEPATITIS B VACCINES Met [facility] Test 14:48:42 (1 of 3 - Risk 3-dose series) [code = HEPATITIS B VACCINES (1 of 3 - Risk 3-dose series)] Future Scheduled 2022-03-25 COVID-19 VACCINE (3 - [facility] Test 14:48:42 Booster for Pfizer [...] Future Scheduled 2022-03-25 SHINGLES VACCINES (1 Met [facility] Test 14:48:42 of 2) [code = SHINGLES VACCINES (1 of 2)] Future Scheduled 2022-03-25 BREAST CANCER [facility] Test 14:48:42 SCREENING [code = BREAST CANCER SCREENING] Future Scheduled 2022-03-25 COLONOSCOPY SCREENING [facility] Test 14:48:42 [code = COLONOSCOPY SCREENING] Future Scheduled 2022-03-25 HEPATITIS B VACCINES Met [facility] Test 14:48:42 (1 of 3 - Risk 3-dose series) [code = HEPATITIS B VACCINES (1 of 3 - Risk 3-dose series)] Future Scheduled 2022-03-25 COVID-19 VACCINE (3 - [facility] Test 14:48:42 Booster for Pfizer series) [code = COVID-19 VACCINE (3 - Booster for Pfizer series)] Future Scheduled 2022-03-25 65+ [facility] 14:48:42 VACCINE (4 - PPSV23 if available, else PCV20) [code = 65+ PNEUMOCOCCAL VACCINE (4 - PPSV23 if available, else PCV20)] Future Scheduled 2022-03-25 INFLUENZA VACCINE Method [facility] Test 14:48:42 [code = INFLUENZA VACCINE] Future Scheduled 2022-03-04 SHINGLES VACCINES (1 Met [facility] Test 14:03:57 of 2) [code = SHINGLES VACCINES (1 of 2)] Future Scheduled 2022-03-04 BREAST CANCER [facility] Test 14:03:57 SCREENING [code = BREAST CANCER SCREENING] Future Scheduled 2022-03-04 COLONOSCOPY SCREENING [facility] Test 14:03:57 [code = COLONOSCOPY SCREENING] Future Scheduled 2022-03-04 HEPATITIS B VACCINES Met [facility] Test 14:03:57 (1 of 3 - Risk 3-dose series) [code = HEPATITIS B VACCINES (1 of 3 - Risk 3-dose series)] Future Scheduled 2022-03-04 COVID-19 VACCINE (3 - Me [facility] Test 14:03:57 Booster for Pfizer series) [code = COVID-19 VACCINE (3 - Booster for Pfizer series)] Future Scheduled 2022-03-04 65+ [facility] 14:03:57 VACCINE (4 - PPSV23 if available, else PCV20) [code = 65+ PNEUMOCOCCAL VACCINE (4 - PPSV23 if available, else PCV20)] Future Scheduled 2022-03-04 INFLUENZA VACCINE [facility] Test 14:03:57 [code = INFLUENZA VACCINE] Future Scheduled 2022-03-04 SHINGLES VACCINES (1 Met [facility] Test 14:03:57 of 2) [code = SHINGLES VACCINES (1 of 2)] Future Scheduled 2022-03-04 BREAST CANCER [facility] Test 14:03:57 SCREENING [code = BREAST CANCER SCREENING] Future Scheduled 2022-03-04 COLONOSCOPY SCREENING [facility] Test 14:03:57 [code = COLONOSCOPY SCREENING] Future Scheduled 2022-03-04 HEPATITIS B VACCINES Met [facility] Test 14:03:57 (1 of 3 - Risk 3-dose series) [code = HEPATITIS B VACCINES (1 of 3 - Risk 3-dose series)] Future Scheduled 2022-03-04 COVID-19 VACCINE (3 - [facility] Test 14:03:57 Booster for Pfizer series) [code = COVID-19 VACCINE (3 - Booster for Pfizer series)] Future Scheduled 2022-03-04 65+ [facility]AL [facility] 14:03:57 VACCINE (4 - PPSV23 if available, else PCV20) [code = 65+ PNEUMOCOCCAL VACCINE (4 - PPSV23 if available, else PCV20)] Future Scheduled 2022-03-04 INFLUENZA VACCINE Method [facility] Test 14:03:57 [code = INFLUENZA VACCINE] Future Scheduled 2022-03-04 SHINGLES VACCINES (1 Met [facility] Test 14:03:57 of 2) [code = SHINGLES VACCINES (1 of 2)] Future Scheduled 2022-03-04 BREAST CANCER [facility] Test 14:03:57 SCREENING [code = BREAST CANCER SCREENING] Future Scheduled 2022-03-04 COLONOSCOPY SCREENING [facility] Test 14:03:57 [code = COLONOSCOPY SCREENING] Future Scheduled 2022-03-04 HEPATITIS B VACCINES Met [facility] Test 14:03:57 (1 of 3 - Risk 3-dose series) [code = HEPATITIS B VACCINES (1 of 3 - Risk 3-dose series)] Future Scheduled 2022-03-04 COVID-19 VACCINE (3 - Me [facility] Test 14:03:57 Booster for Pfizer series) [code = COVID-19 VACCINE (3 - Booster for Pfizer series)] Future Scheduled 2022-03-04 65+ PNEUMOCOCCAL [facility] Test 14:03:57 VACCINE (4 - PPSV23 if available, else PCV20) [code = 65+ PNEUMOCOCCAL VACCINE (4 - PPSV23 if available, else PCV20)] Future Scheduled 2022-03-04 INFLUENZA VACCINE Method [facility] Test 14:03:57 [code = INFLUENZA VACCINE] Future Scheduled 2022-03-04 SHINGLES VACCINES (1 Met [facility] Test 14:03:57 of 2) [code = SHINGLES VACCINES (1 of 2)] Future Scheduled 2022-03-04 BREAST CANCER [facility] Test 14:03:57 SCREENING [code = BREAST CANCER SCREENING] Future Scheduled 2022-03-04 COLONOSCOPY SCREENING [facility] Test 14:03:57 [code = COLONOSCOPY SCREENING] Future Scheduled 2022-03-04 HEPATITIS B VACCINES Met [facility] Test 14:03:57 (1 of 3 - Risk 3-dose series) [code = HEPATITIS B VACCINES (1 of 3 - Risk 3-dose series)] Future Scheduled 2022-03-04 COVID-19 VACCINE (3 - [facility] Test 14:03:57 Booster for Pfizer series) [code = COVID-19 VACCINE (3 - Booster for Pfizer series)] Future Scheduled 2022-03-04 65+ [facility]AL [facility] Test 14:03:57 VACCINE (4 - PPSV23 if available, else PCV20) [code = 65+ PNEUMOCOCCAL VACCINE (4 - PPSV23 if available, else PCV20)] Future Scheduled 2022-03-04 INFLUENZA VACCINE Method [facility] Test 14:03:57 [code = INFLUENZA VACCINE] Future Scheduled 2022-02-11 SHINGLES VACCINES (1 Met [facility] Test 13:39:12 of 2) [code = SHINGLES VACCINES (1 of 2)] Future Scheduled 2022-02-11 BREAST CANCER [facility] Test 13:39:12 SCREENING [code = BREAST CANCER SCREENING] Future Scheduled 2022-02-11 COLONOSCOPY SCREENING [facility] Test 13:39:12 [code = COLONOSCOPY SCREENING] Future Scheduled 2022-02-11 HEPATITIS B VACCINES Met [facility] Test 13:39:12 (1 of 3 - Risk 3-dose series) [code = HEPATITIS B VACCINES (1 of 3 - Risk 3-dose series)] Future Scheduled 2022-02-11 COVID-19 VACCINE (3 - Me [facility] Test 13:39:12 Booster for Pfizer series) [code = COVID-19 VACCINE (3 - Booster for Pfizer series)] Future Scheduled 2022-02-11 65+ PNEUMOCOCCAL [facility] Test 13:39:12 VACCINE (4 - PPSV23 or PCV20) [code = 65+ PNEUMOCOCCAL VACCINE (4 - PPSV23 or PCV20)] Future Scheduled 2022-02-11 INFLUENZA VACCINE Method [facility] Test 13:39:12 [code = INFLUENZA VACCINE] Future Scheduled 2022-01-29 SHINGLES VACCINES (1 Met [facility] Test 14:07:20 of 2) [code = SHINGLES VACCINES (1 of 2)] Future Scheduled 2022-01-29 BREAST CANCER [facility] Test 14:07:20 SCREENING [code = BREAST CANCER SCREENING] Future Scheduled 2022-01-29 COLONOSCOPY SCREENING [facility] Test 14:07:20 [code = COLONOSCOPY SCREENING] Future Scheduled 2022-01-29 HEPATITIS B VACCINES Met [facility] Test 14:07:20 (1 of 3 - Risk 3-dose series) [code = HEPATITIS B VACCINES (1 of 3 - Risk 3-dose series)] Future Scheduled 2022-01-29 COVID-19 VACCINE (3 - [facility] Test 14:07:20 Booster for Pfizer series) [code = COVID-19 VACCINE (3 - Booster for Pfizer series)] Future Scheduled 2022-01-29 65+ [facility]AL [facility] Test 14:07:20 VACCINE (4 - PPSV23 or PCV20) [code = 65+ PNEUMOCOCCAL VACCINE (4 - PPSV23 or PCV20)] Future Scheduled 2022-01-29 INFLUENZA VACCINE Method [facility] Test 14:07:20 [code = INFLUENZA VACCINE] Future Scheduled 2022-01-29 SHINGLES VACCINES (1 Met [facility] Test 14:07:20 of 2) [code = SHINGLES VACCINES (1 of 2)] Future Scheduled 2022-01-29 BREAST CANCER [facility] Test 14:07:20 SCREENING [code = BREAST CANCER SCREENING] Future Scheduled 2022-01-29 COLONOSCOPY SCREENING [facility] Test 14:07:20 [code = COLONOSCOPY SCREENING] Future Scheduled 2022-01-29 HEPATITIS B VACCINES Met [facility] Test 14:07:20 (1 of 3 - Risk 3-dose series) [code = HEPATITIS B VACCINES (1 of 3 - Risk 3-dose series)] Future Scheduled 2022-01-29 COVID-19 VACCINE (3 - [facility] Test 14:07:20 Booster for Pfizer series) [code = COVID-19 VACCINE (3 - Booster for Pfizer series)] Future Scheduled 2022-01-29 65+ PNEUMOCOCCAL [facility] Test 14:07:20 VACCINE (4 - PPSV23 or PCV20) [code = 65+ PNEUMOCOCCAL VACCINE (4 - PPSV23 or PCV20)] Future Scheduled 2022-01-29 INFLUENZA VACCINE Method [facility] Test 14:07:20 [code = INFLUENZA VACCINE] Future Scheduled 2022-01-29 SHINGLES VACCINES (1 Met [facility] Test 14:07:20 of 2) [code = SHINGLES VACCINES (1 of 2)] Future Scheduled 2022-01-29 BREAST CANCER [facility] Test 14:07:20 SCREENING [code = BREAST CANCER SCREENING] Future Scheduled 2022-01-29 COLONOSCOPY SCREENING [facility] Test 14:07:20 [code = COLONOSCOPY SCREENING] Future Scheduled 2022-01-29 HEPATITIS B VACCINES Met [facility] Test 14:07:20 (1 of 3 - Risk 3-dose series) [code = HEPATITIS B VACCINES (1 of 3 - Risk 3-dose series)] Future Scheduled 2022-01-29 COVID-19 VACCINE (3 - [facility] Test 14:07:20 Booster for Pfizer series) [code = COVID-19 VACCINE (3 - Booster for Pfizer series)] Future Scheduled 2022-01-29 65+ [facility]CCAL [facility] Test 14:07:20 VACCINE (4 - PPSV23 or PCV20) [code = 65+ PNEUMOCOCCAL VACCINE (4 - PPSV23 or PCV20)] Future Scheduled 2022-01-29 INFLUENZA VACCINE Method [facility] Test 14:07:20 [code = INFLUENZA VACCINE] Future Scheduled 2022-01-29 SHINGLES VACCINES (1 Met [facility] Test 14:07:20 of 2) [code = SHINGLES VACCINES (1 of 2)] Future Scheduled 2022-01-29 BREAST CANCER [facility] Test 14:07:20 SCREENING [code = BREAST CANCER SCREENING] Future Scheduled 2022-01-29 COLONOSCOPY SCREENING [facility] Test 14:07:20 [code = COLONOSCOPY SCREENING] Future Scheduled 2022-01-29 HEPATITIS B VACCINES Met [facility] Test 14:07:20 (1 of 3 - Risk 3-dose series) [code = HEPATITIS B VACCINES (1 of 3 - Risk 3-dose series)] Future Scheduled 2022-01-29 COVID-19 VACCINE (3 - [facility] Test 14:07:20 Booster for Pfizer series) [code = COVID-19 VACCINE (3 - Booster for Pfizer series)] Future Scheduled 2022-01-29 65+ [facility]CCAL [facility] Test 14:07:20 VACCINE (4 - PPSV23 or PCV20) [code = 65+ PNEUMOCOCCAL VACCINE (4 - PPSV23 or PCV20)] Future Scheduled 2022-01-29 INFLUENZA VACCINE Method [facility] Test 14:07:20 [code = INFLUENZA VACCINE] Future Scheduled 2022-01-20 SHINGLES VACCINES (1 Met [facility] Test 06:12:34 of 2) [code = SHINGLES VACCINES (1 of 2)] Future Scheduled 2022-01-20 Screening for [facility] Test 06:12:34 malignant neoplasm of cervix (procedure) [code = [id number]] Future Scheduled 2022-01-20 BREAST CANCER [facility] Test 06:12:34 SCREENING [code = BREAST CANCER SCREENING] Future Scheduled 2022-01-20 COLONOSCOPY SCREENING [facility] Test 06:12:34 [code = COLONOSCOPY SCREENING] Future Scheduled 2022-01-20 HEPATITIS B VACCINES Met [facility] Test 06:12:34 (1 of 3 - Risk 3-dose series) [code = HEPATITIS B VACCINES (1 of 3 - Risk 3-dose series)] Future Scheduled 2022-01-20 COVID-19 VACCINE (3 - [facility] Test 06:12:34 Booster for Pfizer series) [code = COVID-19 VACCINE (3 - Booster for Pfizer series)] Future Scheduled 2022-01-20 65+ PNEUMOCOCCAL [facility] Test 06:12:34 VACCINE (4 - PPSV23 or PCV20) [code = 65+ PNEUMOCOCCAL VACCINE (4 - PPSV23 or PCV20)] Future Scheduled 2022-01-20 INFLUENZA VACCINE Method [facility] Test 06:12:34 [code = INFLUENZA VACCINE] Future Scheduled 2022-01-16 SHINGLES VACCINES (1 Met [facility] Test 12:09:25 of 2) [code = SHINGLES VACCINES (1 of 2)] Future Scheduled 2022-01-16 Screening for [facility] Test 12:09:25 malignant neoplasm of cervix (procedure) [code = [id number]] Future Scheduled 2022-01-16 BREAST CANCER [facility] Test 12:09:25 SCREENING [code = BREAST CANCER SCREENING] Future Scheduled 2022-01-16 COLONOSCOPY SCREENING [facility] Test 12:09:25 [code = COLONOSCOPY SCREENING] Future Scheduled 2022-01-16 HEPATITIS B VACCINES Met [facility] Test 12:09:25 (1 of 3 - Risk 3-dose series) [code = HEPATITIS B VACCINES (1 of 3 - Risk 3-dose series)] Future Scheduled 2022-01-16 COVID-19 VACCINE (3 - Me [facility] Test 12:09:25 Booster for Pfizer series) [code = COVID-19 VACCINE (3 - Booster for Pfizer series)] Future Scheduled 2022-01-16 65+ PNEUMOCOCCAL [facility] Test 12:09:25 VACCINE (4 - PPSV23 or PCV20) [code = 65+ PNEUMOCOCCAL VACCINE (4 - PPSV23 or PCV20)] Future Scheduled 2022-01-16 INFLUENZA VACCINE Method [facility] Test 12:09:25 [code = INFLUENZA VACCINE] Future Scheduled 2022-01-14 SHINGLES VACCINES (1 Met [facility] Test 04:11:46 of 2) [code = SHINGLES VACCINES (1 of 2)] Future Scheduled 2022-01-14 Screening for [facility] Test 04:11:46 malignant neoplasm of cervix (procedure) [code = [id number]] Future Scheduled 2022-01-14 BREAST CANCER [facility] Test 04:11:46 SCREENING [code = BREAST CANCER SCREENING] Future Scheduled 2022-01-14 COLONOSCOPY SCREENING [facility] Test 04:11:46 [code = COLONOSCOPY SCREENING] Future Scheduled 2022-01-14 HEPATITIS B VACCINES Met [facility] Test 04:11:46 (1 of 3 - Risk 3-dose series) [code = HEPATITIS B VACCINES (1 of 3 - Risk 3-dose series)] Future Scheduled 2022-01-14 COVID-19 VACCINE (3 - Me [facility] Test 04:11:46 Booster for Pfizer series) [code = COVID-19 VACCINE (3 - Booster for Pfizer series)] Future Scheduled 2022-01-14 65+ PNEUMOCOCCAL [facility] Test 04:11:46 VACCINE (4 - PPSV23 or PCV20) [code = 65+ PNEUMOCOCCAL VACCINE (4 - PPSV23 or PCV20)] Future Scheduled 2022-01-14 INFLUENZA VACCINE Method [facility] Test 04:11:46 [code = INFLUENZA VACCINE] Future Scheduled 2021-08-26 Screening for [facility] Test 13:02:23 malignant neoplasm of cervix (procedure) [code = [id number]] Future Scheduled 2021-08-26 BREAST CANCER [facility] Test 13:02:23 SCREENING [code = BREAST CANCER SCREENING] Future Scheduled 2021-08-26 COLONOSCOPY SCREENING [facility] Test 13:02:23 [code = COLONOSCOPY SCREENING] Future Scheduled 2021-08-26 Screening for [facility] Test 13:02:23 malignant neoplasm of lung (procedure) [code = [id number]] Future Scheduled 2021-08-26 SHINGLES VACCINES (#1) [facility] Test 13:02:23 [code = SHINGLES VACCINES (#1)] Future Scheduled 2021-08-26 COVID-19 VACCINE (3 - [facility] Test 13:02:23 Pfizer risk 4-dose series) [code = COVID-19 VACCINE (3 - Pfizer risk 4-dose series)] Future Scheduled 2021-08-26 65+ [facility]CCAL [facility] Test 13:02:23 VACCINE (4 of 4 - PPSV23) [code = 65+ PNEUMOCOCCAL VACCINE (4 of 4 - PPSV23)] Future Scheduled 2021-08-26 INFLUENZA VACCINE Method [facility] Test 13:02:23 [code = INFLUENZA VACCINE] Encounters Start End Encounter Admission Attending Care Care Encounter Source Date/Time Date/Time Type Type Clinicians Facility Department ID 2022-02-18 Outpatient CHW CHW [id number] [place] 14:30:[address] [place] [address] and [facility] 2021-07-14 Outpatient SADIKOVIC, [facility] [id number] [place] 09:33:[address] [facility] 2021-06-02 Outpatient HEMATPOUR, [facility] [id number] [place] 13:58:59 [facility] 2021-04-28 Outpatient HEMATPOUR, [facility] [id number] [place] 11:21:22 [facility] 2021-03-20 Emergency [facility] [id number] Univers [facility]12 Outpatient HEMATPOUR, [facility] [id number] [place] 08:16:46 [facility] 2020-10-31 Outpatient HEMATPOUR, [facility] [id number] [place] 09:44:50 [facility] 2020-09-30 Outpatient HEMATPOUR, [facility] [id number] [place] 13:16:03 [facility] 2022-09-03 2022-09-03 Outpatient R EAST, [facility] [id number] Univers 11:00:00 11:00:00 SANTIAGO [facility] 2022-08-24 2022-08-24 Refill [place], 1.2.840.0 [id number] Univers 00:00:00 00:00:00 [place] 98076.1.1 ity 3.104.2.7 [place] .3.187711 Medica l .8 [place] 2022-05-20 2022-05-20 Telephone [facility], [facility] 1.2.840.114 [id number] Univers 00:00:00 00:00:00 [facility] 350.1.13.10 i ty [place] [id number] [facility] [address] 2022-05-10 2022-05-10 Emergency X BYRON, [facility] ERT [id number] Univers 10:30:00 16:31:00 HOME [facility] 2022-05-10 2022-05-10 Emergency Byron, [facility] 1.2.840.114 [id number] Univers 10:30:00 16:31:00 [facility] 350.1.13.10 [place] [id number] [facility] [address] [place] 2022-05-10 2022-05-10 Telephone [facility] 1.2.840.114 [id number] Univers 00:00:00 00:00:00 [facility] 350.1.13.10 i [place] [id number] [address] 2022-05-08 2022-05-08 Emergency [facility] [place] [facility] [id number] Univers 16:18:00 18:42:00 THERESA barbosa [facility] 2022-05-08 2022-05-08 Emergency [facility] [place] 1.2.840.114 [id number] Univers 16:18:00 18:42:00 Theresa BULLOCK 350.1.13.10 ity of [place] [id number] [address] 2022-05-07 2022-05-07 Telephone [facility] 1.2.840.114 [id number] Univers 00:00:00 00:00:00 [facility] 350.1.13.10 i [place] [id number] [address] 2022-05-06 2022-05-06 Emergency X JUANITA [facility] ERT [id number] Univers 14:13:00 18:19:00 [facility] 2022-05-06 2022-05-06 Emergency [facility] 1.2.616.148 [id number] Univers 14:13:00 18:19:00 Anette BULLOCK 350.1.13.10 ity of [place] [id number] [address] 2022-05-06 2022-05-06 Telephone [facility] 1.2.840.114 [id number] Univers 00:00:00 00:00:00 [facility] 350.1.13.10 i [place] [id number] [address] 2022-04-22 2022-04-22 Emergency X [facility] ERT [id number] Univers 13:55:00 17:00:00 [facility] 2022-04-22 2022-04-22 Emergency [facility] 1.2.677.175 [id number] Univers 13:55:00 17:00:00 Paulette S [place] 350.1.13.10 i ty of [place] 4.2.7.2.686 [id number] [address] 2022-04-07 2022-04-07 Outpatient R [facility] [id number] Univers 20:40:00 20:40:00 ATTENDING ity [facility] 2022-04-07 2022-04-07 Telephone Devin 1.2.840.6 [id number] Univers 00:00:00 00:00:00 Robbi R 84551.1.1 i ty of 3.104.2.7 [place] .3.688720 Medica l .8 [place] 2022-03-05 2022-03-05 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 RonaldSantiago 1.2.840.1 [id number] Univers 13:45:00 14:00:00 Visit [facility] 50457.1.1 ity of 3.104.2.7 [place] .3.770394 Medica l .8 [place] 2022-03-05 2022-03-05 Office Ronald [facility] 1.2.435.284 [id number] Univers 13:00:00 13:30:00 Visit [facility] 350.1.13.10 i [place] [id number] [address] 2022-03-05 2022-03-05 Outpatient R [facility] [id number] Univers 13:00:00 13:00:00 [facility] 2022-02-26 2022-02-26 Outpatient R [facility] [id number] Univers 08:30:00 08:30:00 SANTIAGO charlie [facility] 2022-02-26 2022-02-26 Outpatient R [facility] [id number] Univers 08:30:00 08:30:00 SANTIAGO charlie [facility] 2022-02-17 2022-02-17 Transition Stevo, 1.2.840.7 [id number] Univers 00:00:00 00:00:00 of Care Isaias Arredondo 12056.1.1 it y of 3.104.2.7 [place] .3.688530 Medica l .8 [place] 2022-02-10 2022-02-16 Inpatient X [facility] [id number] Univers 22:59:00 19:27:00 TOMY ity [facility] 2022-02-10 2022-02-16 Hospital Reilly Means 1.2.840.1 [id number] Univers 22:59:00 19:27:00 Encounter Ofe Shields 63283.1.1 ity of [place] 3.[place].2.7 [place] .3.776543 Medica l .8 [place] 2022-02-11 2022-02-11 Telephone [place], 1.2.840.7 [id number] Univers 00:00:00 00:00:00 [place] 80910.1.1 ity of 3.104.2.7 [place] .3.736727 Medica l .8 [place] 2022-02-10 2022-02-10 Travel 1.2.840.1 1.2.672.833 [id number] Univers 00:00:00 00:00:00 97347.1.1 350.1.13.10 ity of 3.104.2.7 4[place]7.3.698 [place] .3.778056 084.8 Medica l .8 [place] 2022-01-30 2022-01-30 Telephone [place], 1.2.840.9 [id number] Univers 00:00:00 00:00:00 [place] 76730.1.1 ity of 3.104.2.7 [place] .3.034978 Medica l .8 [place] 2022-01-06 2022-01-06 Orders Doctor FERMIN 1.2.840.114 [id number] Univers 00:00:00 00:00:00 Only Unassigned, JACKELINE 350.1.13.10 ity of [place] [facility] 4.2.7.2.686 Yomi as [id number] [facility] [address] 2021-12-25 2021-12-25 Orders Doctor FERMIN 1.2.840.114 [id number] Univers 00:00:00 00:00:00 Only Unassigned, JACKELINE 350.1.13.10 ity of [place] [facility] 4.2.7.2.686 Yomi as [id number] [facility] [address] [place] 2021-12-12 2021-12-13 Emergency X SANKET K [facility] ERT [id number] Univers 23:53:00 01:52:00 ity of [facility] [place] 2021-12-12 2021-12-13 Emergency Sanket [facility] 1.2.840.114 [id number] Univers 23:53:00 01:52:00 Kiersten BULLOCK 350.1.13.10 i ty of [place]2.[place] [id number] [facility] [address] 2021-11-20 2021-11-20 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 [facility]ERSIT 1.2.840.114 [id number] Univers 09:45:00 10:00:00 Visit [facility] 350.1.13.10 ity of [place] 4[place] [id number] [facility] [address] 2021-11-20 2021-11-20 Office [facility] 1.2.522.660 [id number] Univers 08:30:00 09:00:00 Visit [facility] 350.1.13.10 i ty of [place] [id number] [facility] [address] 2021-11-20 2021-11-20 Outpatient R [facility] [id number] Univers 08:30:00 08:30:00 SANTIAGO charlei [facility] 2021-11-20 2021-11-20 Outpatient R [facility], [facility] [id number] Univers 08:30:00 08:30:00 SANTIAGO barbosa [facility] 2021-11-20 2021-11-20 Outpatient R EAST, [facility] [id number] Univers 08:30:00 08:30:00 SANTIAGO charlie [facility] 2021-11-20 2021-11-20 Outpatient R EAST, [facility] [id number] Univers 08:30:00 08:30:00 [facility] 2021-10-24 2021-10-24 [facility] [id number] Univers 16:27:00 22:26:00 [facility] 2021-10-24 2021-10-24 [facility] [id number] Univers 16:27:00 22:26:00 CHARITY [facility] 2021-10-24 2021-10-24 Emergency Miguelangel Reilly [facility] 1.2.840. 114 [id number] Univers 16:27:00 22:26:00 [facility] 350.1.13.10 ity [facility] 4.2.7.2.6 [facility] [id number] [address] 2021-10-23 2021-10-24 Emergency [facility] [id number] Univers 20:22:00 02:57:00 CHARITY [facility] 2021-10-23 2021-10-24 Emergency [facility] 1.2.605.193 [id number] Univers 20:22:00 02:57:00 [facility] 350.1.13.10 ity [facility] 4.2.7.[address] [place] [id number] 2021-09-07 2021-09-07 Outpatient R SELF, [facility] [id number] Univers 08:00:00 08:00:00 GADIEL rodas [facility] [place] 2021-09-07 2021-09-07 Outpatient R [facility], [facility] [id number] Univers 08:00:00 08:00:00 GADIEL rodas [facility] [place] 2021-08-21 2021-08-21 Outpatient R [facility] [id number] Univers 10:45:00 10:45:00 SANTIAGO barbosa [facility] 2021-08-21 2021-08-21 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 [place] Cardenas 1.2.840.1 [id number] Univers 10:45:00 10:45:00 Visit [facility] 19038.1.1 ity of 3.104.2.7 [place] .3.106319 Medica l .8 [place] 2021-08-21 2021-08-21 Office [facility], 1.2.840.8 [id number] Univers 08:30:00 09:00:00 Visit [place] 54259.1.1 ity of 3.104.2.7 [place] .3.858476 Medica l .8 [place] 2021-08-21 2021-08-21 Office [facility] 1.2.109.740 [id number] Univers 08:30:00 09:00:00 Visit Santiago [facility] 350.1.13.10 i ty of [place] 4[place] [id number] [facility] porfirio 089 [place] 2021-08-21 2021-08-21 Outpatient R [facility] [id number] Univers 08:30:00 08:30:00 [place]O barbosa [facility] 2021-08-21 2021-08-21 Travel 1.2.840.1 [id number] Univers 00:00:00 00:00:00 18673.1.1 350.1.13.10 ity of 3.104.2.7 4.[place].3.698 [place] .3.639854 084.8 Medica l .8 [place] 2021-08-14 2021-08-14 Telephone [place], 1.2.840.9 [id number] Univers 00:00:00 00:00:00 [place] 77979.1.1 ity of 3.104.2.7 [place] .3.680394 Medica l .8 [place] 2021-08-13 2021-08-13 Telephone [place], 1.2.840.9 [id number] Univers 00:00:00 00:00:00 [place] 65025.1.1 ity of 3.104.2.7 [place] .3.169380 Medica l .8 [place] 2021-08-11 2021-08-11 Outpatient [facility] [id number] Univers 08:00:00 08:00:00 [facility] 2021-08-05 2021-08-05 Inpatient RAUL Lund, HCACL OUTD [id number] [facility] 05:24:00 05:24:00 Mike 31 [facility] 2021-07-20 2021-07-20 Outpatient [facility] [id number] Univers 10:00:00 10:00:00 [facility] 2021-07-14 2021-07-14 Office Pankaj, UTP 6400 1.2.840.114 13 [id number] [place] 08:45:00 09:34:[address] 350.1.13.58 Health 9.2.7.2.686 [id number] 1 2021-07-09 2021-07-09 Telephone Hematpour, UTP 6400 1.2.840.114 [id number] [place] 00:00:00 00:00:00 Marí[address]rieamaris PA[address] 350.1.13.58 Health 9.2.7.2.686 [id number] 1 2021-07-09 2021-07-09 Telephone Hematpour, UTP 6400 1.2.840.114 [id number] [place] 00:00:00 00:00:[address] 350.1.13.58 Health 9.2.7.2.686 [id number] 1 2021-07-03 2021-07-03 Outpatient [facility] [id number] Univers 08:00:00 08:00:00 SANTIAGO barbosa of [facility] [place] 2021-06-17 2021-06-17 Inpatient RAUL Lund, EDUARDOCL INTE.02 [id number] [facility] 10:56:00 14:36:00 Mike Villeda [facility] 2021-06-15 2021-06-15 Outpatient R SELF, [facility] [id number] Univers 10:15:00 11:07:21 GADIEL vogel [facility] 2021-06-15 2021-06-15 Outpatient R SELF, [facility] [id number] Univers 10:15:00 10:15:00 GADIEL barbosa o [facility] 2021-06-15 2021-06-15 Outpatient R SELF, [facility] [id number] Univers 10:15:00 10:15:00 GADIEL rodas [facility] [place] 2021-06-15 2021-06-15 Orders Doctor 1.2.840.3 [id number] 775 Univers 00:00:00 00:00:00 Only Unassigned, 76561.1.1 ity of [place] 3.104.2.7 [place] .3.075519 Medica l .8 [place] 2021-06-15 2021-06-15 Travel 1.2.840.1 1.2.249.937 8241 7719 Univers 00:00:00 00:00:00 03055.1.1 350.1.13.10 ity of 3.104.2.7 [place].3.698 [place] .3.822275 084.8 Medica l .8 [place] 2021-06-11 2021-06-11 Refill East, UNIVERSIT 1.2.176.857 6703 9185 Univers 00:00:00 00:00:00 Santiago [facility] 350.1.13.10 i ty of CL[place] 4.2.[place].2.[place] [id number] [facility] 089 [place] 2021-06-11 2021-06-11 Refill East, 1.2.840.1 [id number] 185 Univers 00:00:00 00:00:00 Santiago 18554.1.1 ity of 3.104.2.7 [place] .3.742407 Medica l .8 Branch 2021-06-05 2021-06-05 Outpatient R EAST, [facility] [id number] Univers 09:00:00 09:00:00 SANTIAGO ity of [facility] [place] 2021-06-02 2021-06-02 Telephone East, UNIVERSIT 1.2.840.114 90 [id number] Univers 00:00:00 00:00:00 Santiago [facility] 350.1.13.10 i ty of CL[place] 4.[place].2.686 [place] [id number] [facility] porfirio 089 Branch 2021-06-02 2021-06-02 Telephone East, 1.2.840.1 [id number] 903 78410 Univers 00:00:00 00:00:00 Santiago 27973.1.1 ity of 3.104.2.7 [place] .3.609049 Medica l .8 Branch 2021-05-29 2021-05-29 Telephone East, 1.2.840.0 [id number] 902 32328 Univers 00:00:00 00:00:00 Santiago 01266.1.1 ity of 3.104.2.7 [place] .3.772021 Medica l .8 Branch 2021-05-29 2021-05-29 Telephone East, 1.2.840.1 [id number] 902 94349 Univers 00:00:00 00:00:00 Santiago 08217.1.1 ity of 3.104.2.7 [place] .3.749147 Medica l .8 [place] 2021-05-25 2021-05-25 Outpatient R SELF, [facility] [id number] Univers 08:00:00 08:00:00 GADIEL barbosa o f [facility] [place] 2021-04-29 2021-04-29 Outpatient R LALA, [facility] [id number] Univers 08:00:00 08:00:00 NIKOLAI barbosa of [facility] [place] 2021-04-28 2021-04-28 Telephone Hematpour, [facility] 6400 1.2.840.114 [id number] [place] 00:00:00 00:00:[address] 350.1.13.[address] [facility] 9.2.7.2.686 [id number] 1 2021-04-28 2021-04-28 Telephone Jailyn, 1.2.840.4 [id number] 21 [id number] Methodi 00:00:00 00:00:[address] 3.430.2.7 Hospit a .3.016427 l .8 2021-03-31 2021-03-31 Orders Jillariel, 1.2.840.1 [id number] 21 [id number] Methodi 00:00:00 00:00:00 Only Sarai Lieberman 23193.1.1 979 s t 3.430.2.7 Hospit a .3.401494 l .8 2021-03-30 2021-03-30 [facility] [id number] Univers 08:45:00 08:45:00 GADIEL vogel [facility] 2021-03-24 2021-03-24 Telephone Jailyn, 1.2.840.3 [id number] 21 [id number] Methodi 00:00:00 00:00:[address] 3.430.2.7 Hospit a .3.642398 l .8 2021-02-13 2021-02-13 Telephone Ronald, 1.2.840.9 [id number] 876 63155 Univers 00:00:00 00:00:00 Santiago 10407.1.1 ity of 3.104.2.7 [place] .3.441717 Medica l .8 [place] 2021-01-28 2021-01-28 [facility] [id number] Univers 08:45:00 09:37:00 NIKOLAI barbosa of [facility] [place] 2021-01-28 2021-01-28 Travel 1.2.840.1 1.2.364.872 8628 9777 Univers 00:00:00 00:00:00 99875.1.1 350.1.13.10 ity of 3.104.2.7 4.[place].7.3.698 [place] .3.933618 084.8 Medica l .8 Branch 2021-01-19 2021-01-19 Telephone Prabhu, 1.2.840.1 [id number] 2100 130962 Methodi 00:00:00 00:00:[address] 3.430.2.7 Hospit a .3.116461 l .8 2021-01-04 2021-01-04 Letter Shelia, 1.2.840.5 [id number] 79268 696 Univers 00:00:00 00:00:00 (Out) Dagoberto H 50608.1.1 ity of 3.104.2.7 [place] .3.576117 Medica l .8 Branch 2021-01-04 2021-01-04 Letter Shelia, 1.2.840.6 [id number] 77971 696 Univers 00:00:00 00:00:00 (Out) Dagoberto H 76538.1.1 ity of 3.104.2.7 [place] .3.189051 Medica l .8 Branch 2021-01-03 2021-01-03 Letter Shelia, 1.2.840.3 [id number] 57729 790 Univers 00:00:00 00:00:00 (Out) Dagoberto H 61926.1.1 ity of 3.104.2.7 [place] .3.272158 Medica l .8 Branch 2021-01-03 2021-01-03 Letter Shelia, 1.2.840.8 [id number] 37818 790 Univers 00:00:00 00:00:00 (Out) Dagoberto H 19091.1.1 ity of 3.104.2.7 [place] .3.347599 Medica l .8 Branch 2021-01-02 2021-01-02 Outpatient R [facility] [id number] Univers 13:40:00 13:40:00 ity of [facility] [place] 2021-01-02 2021-01-02 Laboratory Cuba Franks 1.2.840.6 [id number] [id number] Univers 12:14:13 12:57:34 Only Lab, [facility] [place] [place] 16346.1.1 ity of 3.104.2.7 [place] .3.034842 Medica l .8 [place] 2021-01-02 2021-01-02 Laboratory Cuba Franks 1.2.840.6 [id number] [id number] [facility] 12:14:13 12:57:34 Only Lab, Star [facility] [place] I 95620.1.1 ity of 3.104.2.7 [place] .3.998360 Medica l .8 [place] 2021-01-02 2021-01-02 Travel 1.2.840.1 1.2.040.374 3565 2306 Univers 00:00:00 00:00:00 00409.1.1 350.1.13.10 ity of 3.104.2.7 4.[place].7.3.698 [place] .3.877418 084.8 Medica l .8 [place] 2021-01-02 2021-01-02 Letter Doctor 1.2.840.6 [id number] 87235 948 Univers 00:00:00 00:00:00 (Out) Unassigned, 25431.1.1 ity of [place] 3.104.2.7 [place] .3.551257 Medica l .8 [place] 2021-01-02 2021-01-02 Letter Doctor 1.2.840.9 [id number] 55374 946 Univers 00:00:00 00:00:00 (Out) Unassigned, 04948.1.1 ity of [place] 3.104.2.7 [place] .3.628510 Medica l .8 [place] 2021-01-02 2021-01-02 Travel 1.2.840.1 1.2.528.174 2442 2306 Univers 00:00:00 00:00:00 71142.1.1 350.1.13.10 ity of 3.104.2.7 4.2.7.3.698 [place] .3.008445 084.8 Medica l .8 [place] 2021-01-02 2021-01-02 Letter Doctor 1.2.840.3 [id number] 10146 948 Univers 00:00:00 00:00:00 (Out) Unassigned, 63198.1.1 ity of [place] 3.104.2.7 [place] .3.761258 Medica l .8 [place] 2021-01-02 2021-01-02 Letter Doctor 1.2.840.1 [id number] 946 Univers 00:00:00 00:00:00 (Out) Unassigned, 31180.1.1 ity of [place] 3.104.2.7 [place] .3.591142 Medica l .8 Branch 2020-12-22 2020-12-22 Telephone Beltran, 1.2.840.3 [id number] 862 54474 Univers 00:00:00 00:00:00 Robbi Hairston 53645.1.1 i ty of 3.104.2.7 [place] .3.115869 Medica l .8 [place] 2020-12-22 2020-12-22 Telephone Beltran, 1.2.840.2 [id number] 862 89635 Univers 00:00:00 00:00:00 Robbi Hairston 57874.1.1 i ty of 3.104.2.7 [place] .3.410747 Medica l .8 [place] 2020-12-12 2020-12-12 Office Hematpour, UTP 6400 1.2.840.114 12 [id number] [place] 07:42:02 08:18:[address] 350.1.13.58 Health 9.2.7.2.686 [id number] 1 2020-12-12 2020-12-12 Office Hematpour, UTP 6400 1.2.840.114 12 [id number] 07:42:02 08:18:50 Visit Maríabeeayar JOSEPH ST 350.1.13.58 9.2.7.2.686 [id number] 1 2020-12-09 2020-12-09 Telephone Meisenbach, 1.2.840.1 [id number] Methodi 00:00:00 00:00:00 Sarai Lieberman 85526.1.1 316 s t 3.430.2.7 Hospit a .3.931235 l .8 2020-12-08 2020-12-08 [facility], 1.2.840.1 [id number] 2100 752162 Methodi 12:35:54 23:59:00 Encounter Ray 32210.1.[address] 3.430.2.7 Hospit a .3.797166 l .8 2020-12-08 2020-12-08 [facility], 1.2.840.1 [id number] 28741 95042 Methodi 17:25:00 17:30:[address] 3.430.2.7 Hospit a .3.811776 l .8 2020-12-08 2020-12-08 [facility], 1.2.840.1 [id number] 89270 29632 Methodi 10:30:00 11:39:56 Visit Ray 47787.1.[address] 3.430.2.7 Hospit a .3.343446 l .8 2020-12-08 2020-12-08 Travel 1.2.840.1 1.2.407.672 1689 362105 Methodi 00:00:00 00:00:[address] 3.430.2.7 0.2.7.3.698 Ho spita .3.701434 084.8 l .8 2020-12-02 2020-12-02 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 Santiago Cardenas 1.2.840.1 [id number] [facility] 10:20:06 10:36:19 Visit [facility] 82970.1.1 ity of 3.104.2.7 [place] .3.574358 Medica l .8 Branch 2020-12-02 2020-12-02 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 Santiago Cardenas 1.2.840.1 [id number] 316 [id number] [facility] 10:20:06 10:36:19 Visit [facility] 75308.1.1 ity of 3.104.2.7 [place] .3.412593 Medica l .8 Branch 2020-12-02 2020-12-02 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 [facility] UNIVERSIT 1.2.840.114 8 [id number] 10:20:06 10:36:19 Visit [facility] 350.1.13.10 [facility] 4.2.7.2.686 [id number] [facility] 2020-12-02 2020-12-02 Office Ronald, 1.2.840.6 [id number] 62411 528 Univers 08:31:37 09:01:37 Visit Santiago 20158.1.1 ity of 3.104.2.7 [place] .3.242600 Medica l .8 [place] 2020-12-02 2020-12-02 Outpatient R [facility] [id number] Univers 09:00:00 09:00:00 SANTIAGO ity [facility] 2020-11-25 2020-11-25 Office Devin, 1.2.840.0 [id number] 865 Univers 11:06:30 11:58:14 Visit Robbi Hairston 78891.1.1 i ty of 3.104.2.7 [place] .3.603389 Medica l .8 [place] 2020-11-25 2020-11-25 Office Beltran, 1.2.840.0 [id number] 71941 865 Univers 11:06:30 11:58:14 Visit Robbi Hairston 03485.1.1 i ty of 3.104.2.7 [place] .3.644451 Medica l .8 [place] 2020-11-25 2020-11-25 [facility] 1.2.840.114 [id number] 11:06:30 11:58:14 Visit Robbi Hairston MEDICAL OFFICE SPECIALIST 350.1.13.10 [facility] 4.2.7.2.686 MATERNAL [id number] & CHILD [address] [place] [address] 2020-11-25 2020-11-25 Outpatient R [facility] [id number] Univers 11:00:00 11:00:00 ity of [facility] [place] 2020-11-25 2020-11-25 Telephone Beltran, 1.2.840.8 [id number] 855 16650 Univers 00:00:00 00:00:00 Robbi Hairston 64427.1.1 i ty of 3.104.2.7 [place] .3.560266 Medica l .8 Branch 2020-11-25 2020-11-25 Refill East, 1.2.840.0 [id number] 13732 592 Univers 00:00:00 00:00:00 Santiago 61347.1.1 ity of 3.104.2.7 [place] .3.547866 Medica l .8 Branch 2020-11-25 2020-11-25 Travel 1.2.840.1 1.2.840.863 3930 0247 Univers 00:00:00 00:00:00 97708.1.1 350.1.13.10 ity of 3.104.2.7 4.2.7.3.698 [place] .3.828140 084.8 Medica l .8 Branch 2020-11-25 2020-11-25 Orders Doctor 1.2.840.1 [id number] 59409 064 Univers 00:00:00 00:00:00 Only Unassigned, 88275.1.1 ity of [place] 3.104.2.7 [place] .3.796135 Medica l .8 Branch 2020-11-25 2020-11-25 Telephone Beltran, 1.2.840.9 [id number] 855 48414 Univers 00:00:00 00:00:00 Robbi R 23434.1.1 i ty of 3.104.2.7 [place] .3.851991 Medica l .8 Branch 2020-11-25 2020-11-25 Refill [facility], 1.2.840.1 [id number] 76229 592 Univers 00:00:00 00:00:00 Santiago 52648.1.1 ity of 3.104.2.7 [place] .3.910291 Medica l .8 Branch 2020-11-25 2020-11-25 Travel 1.2.840.1 1.2.572.805 9267 0247 Univers 00:00:00 00:00:00 21037.1.1 350.1.13.10 ity of 3.104.2.7 4.2.7.3.698 [place] .3.316826 084.8 Medica l .8 Branch 2020-11-25 2020-11-25 Orders Doctor 1.2.840.7 [id number] 62317 064 Univers 00:00:00 00:00:00 Only Unassigned, 22405.1.1 ity of [place] 3.104.2.7 [place] .3.393082 Medica l .8 Branch 2020-11-25 2020-11-25 [facility] 1.2.152.986 2289 4592 00:00:00 00:00:00 [facility] 350.1.13.10 [facility] 4.2.7.2.686 [id number] 089 2020-11-25 2020-11-25 Telephone [facility] 1.2.419.522 9481 0821 00:00:00 00:00:00 Robbi Hairston MEDICAL OFFICE SPECIALIST 350.1.13.10 [facility] 4.2.7.2.686 MATERNAL [id number] & CHILD [address] [place] [address] 2020-11-14 2020-11-14 Abstract Rodas, 1.2.840.1 [id number] 96606 43417 Methodi 00:00:00 00:00:[address] 3.430.2.7 Hospit a .3.414545 l .8 2020-11-14 2020-11-14 Telephone Clark, 1.2.840.1 [id number] 2100 883201 Methodi 00:00:00 00:00:[address] 3.430.2.7 Hospit a .3.656255 l .8 2020-11-12 2020-11-12 Outpatient R [facility] [id number] 323 Univers 08:30:00 08:30:00 SANTIAGO barbosa [facility] 2020-11-07 2020-11-07 Telephone Agustina Ortiz 6400 1.2.840.11 4 [id number] [place] 00:00:00 00:00:00 Agustina Ortiz 350.1.13.[address] [facility] 9.2.7.2.686 [id number] 1 2020-11-07 2020-11-07 Telephone Diana, UTP 6400 1.2.840.114 124 [id number] 00:00:00 00:00:[address] 350.1.13.58 9.2.7.2.686 [id number] 1 2020-10-31 2020-10-31 Office Hematpour, UTP 6400 1.2.840.114 12 [id number] [place] 07:54:00 09:45:[address] 350.1.13.58 Health 9.2.7.2.686 [id number] 1 2020-10-30 2020-10-30 Abstract Rody Maguire UTP 6400 1.2.840.1 14 [id number] [place] 00:00:00 00:00:[address] 350.1.13.58 Health 9.2.7.2.686 149.0843003 1 2020-10-29 2020-10-29 Refill East, 1.2.840.5 [id number] 80209 400 Univers 00:00:00 00:00:00 Santiago 71178.1.1 ity of 3.104.2.7 [place] .3.997127 Medica l .8 [place] 2020-10-29 2020-10-29 Refill East, 1.2.840.3 [id number] 91172 400 Univers 00:00:00 00:00:00 Santiago 44926.1.1 ity of 3.104.2.7 [place] .3.563481 Medica l .8 [place] 2020-10-27 2020-10-27 Telephone Chihara, 1.2.840.6 [id number] 21 [id number] Methodi 00:00:00 00:00:[address] 3.430.2.7 Hospit a .3.107554 l .8 2020-10-24 2020-10-24 Telephone Rodas, 1.2.840.1 [id number] 2100 625812 Methodi 00:00:00 00:00:[address] 3.430.2.7 Hospit a .3.781249 l .8 2020-10-22 2020-10-22 Outpatient R SELF, [facility] [id number] 868 Univers 13:00:00 13:00:00 GADIEL vogel [facility] 2020-10-22 2020-10-22 Travel 1.2.840.1 1.2.770.125 4888 3839 Univers 00:00:00 00:00:00 56220.1.1 350.1.13.10 ity of 3.104.2.7 4.2.7.3.698 [place] .3.497015 084.8 Medica l .8 [place] 2020-10-22 2020-10-22 Travel 1.2.840.1 1.2.398.100 1776 3839 Univers 00:00:00 00:00:00 81207.1.1 350.1.13.10 ity of 3.104.2.7 4.2.7.3.698 [place] .3.443981 084.8 Medica l .8 [place] 2020-10-13 2020-10-13 Outpatient R SELF, [facility] [id number] Univers 08:45:00 08:45:00 GADIEL vogel [facility] 2020-10-06 2020-10-12 Telemedici Chihara, 1.2.840.1 [id number] 21 [id number] Methodi 15:30:00 00:08:46 ne Ray 10041.1.[address] 3.430.2.7 Hospit a .3.609005 l .8 2020-09-30 2020-09-30 Telephone Chihara, 1.2.840.1 [id number] 21 [id number] Methodi 00:00:00 00:00:[address] 3.430.2.7 Hospit a .3.234262 l .8 2020-09-21 2020-09-21 Travel 1.2.840.1 1.2.328.488 1536 436322 Methodi 00:00:00 00:00:[address] 3.430.2.7 0.2.7.3.698 Ho spita .3.623164 084.8 l .8 2020-09-06 2020-09-06 [facility] 1.2.840.1 [id number] 13682 16433 Methodi 17:42:30 23:59:[address] 3.430.2.7 Hospit a .3.738343 l .8 2020-09-06 2020-09-06 [facility], 1.2.840.1 [id number] 2100 969800 Methodi 16:50:00 17:41:00 Encounter Ray 94813.1.[address] 3.430.2.7 Hospit a .3.492530 l .8 2020-09-05 2020-09-05 [facility], 1.2.840.1 [id number] 2099 475796 Methodi 09:17:00 19:45:00 Encounter Ray [address]328.1.[address] 3.430.2.7 Hospit a .3.158597 l .8 2020-09-05 2020-09-05 Surgery [facility], 1.2.840.1 [id number] 34600 04958 Methodi 11:30:00 13:15:[address] 3.430.2.7 Hospit a .3.912965 l .8 2020-09-05 2020-09-05 Anesthesia [facility], 1.2.840.1 [id number] 136 [id number] Methodi 11:27:00 12:20:00 Event Anupamwathi 47787.1.1 243 s t V. 3.430.2.7 Hospit a .3.585433 l .8 2020-09-05 2020-09-05 Travel 1.2.840.1 1.2.123.018 5820 524537 Methodi 00:00:00 00:00:[address] 3.430.2.7 0.2.7.3.698 Ho spita .3.247859 084.8 l .8 2020-09-04 2020-09-04 Telephone Meisenbach, 1.2.840.1 [id number] Methodi 00:00:00 00:00:00 Sarai Lieberman 89183.1.1 762 s t 3.430.2.7 Hospit a .3.271738 l .8 2020-09-02 2020-09-02 Telephone Meisenlion, 1.2.840.2 [id number] Methodi 00:00:00 00:00:00 Sarai Lieberman 02685.1.1 344 s t 3.430.2.7 Hospit a .3.572586 l .8 2020-08-29 2020-08-30 Bedded [facility] [id number] [facility] 10:20:00 14:10:00 Outpatient r Towanda 00 l [facility] 2020-08-29 2020-08-30 Outpatient HEMATPOUR, [facility] CAR 7500 [facility] 05:20:00 09:10:00 BEVERLY 2020-08-06 2020-08-06 Office East, 1.2.840.6 [id number] 87642 416 Univers 08:03:23 09:17:49 Visit Santiago 50146.1.1 ity of 3.104.2.7 [place] .3.845516 Medica l .8 Branch 2020-08-06 2020-08-06 Outpatient R EAST, [facility] [id number] Univers 08:30:00 08:30:00 SANTIAGO barbosa of [facility] [place] 2020-07-14 2020-07-14 Outpatient R SELF, [facility] [id number] Univers 09:30:00 09:30:00 GADIEL barbosa o f [facility] [place] 2020-07-14 2020-07-14 Travel 1.2.840.1 1.2.484.322 1138 2575 Univers 00:00:00 00:00:00 63179.1.1 350.1.13.10 ity of 3.104.2.7 4.[place].7.3.698 [place] .3.948206 084.8 Medica l .8 [place] 2020-07-14 2020-07-14 Orders Doctor 1.2.840.4 [id number] 309 Univers 00:00:00 00:00:00 Only Unassigned, 73058.1.1 ity of [place] 3.104.2.7 [place] .3.210283 Medica l .8 [place] 2020-06-16 2020-06-16 Outpatient R [facility] [id number] 239 Univers 08:00:00 08:00:00 GADIEL barbosa o f [facility] [place] 2020-06-06 2020-06-06 Telephone East, 1.2.840.8 [id number] 809 [id number] Univers 00:00:00 00:00:00 Santiago 90584.1.1 ity of 3.104.2.7 [place] .3.537909 Medica l .8 [place] 2020-06-04 2020-06-04 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 Santiago Cardenas 1.2.840.1 [id number] 316 [id number] Univers 09:31:58 09:40:12 Visit [facility] 13295.1.1 ity of 3.104.2.7 [place] .3.561462 Medica l .8 [place] 2020-06-04 2020-06-04 Office FRANCO Cardenas 1.2.564.710 7767 9729 Univers 08:13:41 09:28:25 Visit Santiago [facility] 350.1.13.10 i ty of CL[place]ICS 4.2.7.2.686 [place] 921.0267476 [facility] porfirio 089 [place] 2020-06-04 2020-06-04 Outpatient R [facility] [id number] Univers 08:30:00 08:30:00 SANTIAGO barbosa of [facility] [place] 2020-06-04 2020-06-04 Orders Doctor 1.2.840.7 [id number] 079 Univers 00:00:00 00:00:00 Only Unassigned, 05796.1.1 ity of [place] 3.104.2.7 [place] .3.780062 Medica l .8 [place] 2020-05-19 2020-05-19 Telephone East, 1.2.840.5 [id number] 804 56042 Univers 00:00:00 00:00:00 [place] 43642.1.1 ity of 3.104.2.7 [place] .3.346426 Medica l .8 [place] 2020-04-24 2020-04-24 Telephone East, 1.2.840.0 [id number] Univers 00:00:00 00:00:00 [place] 91059.1.1 ity of 3.104.2.7 [place] .3.025428 Medica l .8 [place] 2020-04-14 2020-04-14 Outpatient R EAST, [facility] [id number] Univers 09:00:00 09:00:00 SANTIAGO ity of [facility] [place] 2020-04-14 2020-04-14 Telephone East, 1.2.840.8 [id number] Univers 00:00:00 00:00:00 [place] 07476.1.1 ity of 3.104.2.7 [place] .3.740372 Medica l .8 [place] 2020-03-31 2020-03-31 Outpatient R EAST, [facility] [id number] Univers 08:30:00 08:30:00 SANTIAGO ity of [facility] [place] 2020-03-03 2020-03-03 Outpatient R SELF, [facility] [id number] Univers 08:00:00 08:00:00 GADIEL raheemcharlie o f [facility] [place] 2020-03-03 2020-03-03 Outpatient R SELF, [facility] [id number] Univers 08:00:00 08:00:00 GADIEL maciely o f [facility] [place] 2020-03-03 2020-03-03 Travel 1.2.840.1 [id number] [id number] Univers 00:00:00 00:00:00 28677.1.1 350.1.13.10 ity of 3[place]104.2.[place]3.349926 084.8 Medica l .8 [place] 2020-02-06 2020-02-06 Telephone East, 1.2.840.9 [id number] Univers 00:00:00 00:00:00 [place] 29329.1.1 ity of 3.104.2.7 [place] .3.234408 Medica l .8 [place] 2020-01-26 2020-01-26 Emergency Caridad, 1.2.840.8 [id number] Univers 10:03:00 13:05:00 Cynhoward 43950.1.1 ity of 3.104.2.7 [place] .3.470016 Medica l .8 [place] 2020-01-26 2020-01-26 Travel 1.2.840.1 1.2.512.433 [id number] Univers 00:00:00 00:00:00 72363.1.1 350.1.13.10 ity of 3.104.2.[place].698 [place]3.078621 084.8 Medica l .8 [place] 2020-01-25 2020-01-25 Outpatient R EAST, [facility] [id number] Univers 08:30:00 08:30:00 SANTIAGO ity of [facility] [place] 2020-01-25 2020-01-25 Telemedici [place], 1.2.840.9 [id number] Univers 07:36:49 08:06:49 ne Visit [place] 95502.1.1 ity of 3.104.2.7 [place] .3.045898 Medica l .8 [place] 2020-01-16 2020-01-16 Outpatient R EAST, [facility] [id number] Univers 08:00:00 08:00:00 SANTIAGO ity of [facility] [place] 2020-01-16 2020-01-16 Telephone East, 1.2.840.9 [id number] Univers 00:00:00 00:00:00 [place] 84644.1.1 ity of 3.104.2.7 [place] .3.612073 Medica l .8 [place] 2020-01-14 2020-01-14 Outpatient R SELF, [facility] [id number] Univers 08:00:00 08:00:00 GADIEL barbosa o f [facility] [place] 2019-12-31 2019-12-31 Outpatient R SELF, [facility] [id number] Univers 08:45:00 08:45:00 GADIEL vogel clark [facility] [place] 2019-10-17 2019-10-17 Outpatient R [facility] [id number] Univers 08:30:00 08:30:00 SANTIAGO barbosa [facility] 2019-10-12 2019-10-12 Outpatient R [facility] [id number] Univers 13:00:00 13:00:00 SANTIAGO ity [facility] 2019-10-12 2019-10-12 Telemedici [place], 1.2.840.3 [id number] Univers 07:38:30 08:08:30 ne Visit [place] 70802.1.1 ity of 3.104.2.7 [place] .3.025853 Medica l .8 [place] 2019-10-08 2019-10-08 Outpatient R [facility] [id number] Univers 10:15:00 10:15:00 GADIEL rodas [facility] [place] 2019-10-03 2019-10-03 Case Assman, 1.2.840.5 [id number] Univers 00:00:00 00:00:00 Management Michael Corbin 88632.1.1 i ty of 3.104.2.7 [place] .3.563982 Medica l .8 [place] 2019-09-27 2019-09-27 Telephone East, 1.2.840.8 [id number] Univers 00:00:00 00:00:00 [place] 22070.1.1 ity of 3.104.2.7 [place] .3.631847 Medica l .8 [place] 2019-09-04 2019-09-04 Refill [place], 1.2.840.7 [id number] Univers 00:00:00 00:00:00 [place] 21406.1.1 ity of 3.104.2.7 [place] .3.378022 Medica l .8 [place] 2019-07-24 2019-07-24 Outpatient R [facility] [id number] Univers 08:30:00 08:30:00 SANTIAGO barbosa [facility] 2019-07-17 2019-07-17 Outpatient R [facility] [id number] Univers 10:00:00 10:00:00 SANTIAGO ity of [facility] [place] 2019-06-15 2019-06-15 Telephone East, 1.2.840.9 [id number] Univers 00:00:00 00:00:00 [place] 41268.1.1 ity of 3.104.2.7 [place] .3.374686 Medica l .8 [place] 2019-06-13 2019-06-13 Telephone Team, [facility] 1.2.840.2 [id number] Univers 00:00:00 00:00:00 Health 68893.1.1 [place] .3.142933 Med[place] .8 [place] 2019-05-10 2019-05-10 Refill Ronald, 1.2.840.4 [id number] Univers 00:00:00 00:00:00 [place] 76201.1.1 ity of 3.104.2.7 [place] .3.633969 Medica l .8 [place] 2019-05-09 2019-05-09 Refill Ronald, 1.2.840.5 [id number] Univers 00:00:00 00:00:00 [place] 80366.1.1 ity of 3.104.2.7 [place] .3.459960 Medica l .8 [place] 2019-04-30 2019-04-30 Outpatient R [facility] [id number] Univers 10:15:00 10:33:05 GADIEL vogel f [facility] [place] 2019-04-18 2019-04-18 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 [place] Cardenas 1.2.840.1 [id number] Univers 10:00:39 10:44:31 Visit [facility] 16878.1.1 ity of 3.104.2.7 [place] .3.567172 Medica l [address] [place] [address] 2019-04-18 2019-04-18 Outpatient R RONALD [facility] [id number] Univers 10:00:00 10:44:31 SANTIAGO barbosa of [facility] [place] 2019-04-18 2019-04-18 Office Ronald, 1.2.840.2 [id number] Univers 08:27:44 09:53:27 Visit Santiago 29440.1.1 ity of 3.104.2.7 [place] .3.587749 Medica l .8 [place] 2019-04-18 2019-04-18 Orders Doctor 1.2.840.0 [id number] Univers 00:00:00 00:00:00 Only Unassigned, 33637.1.1 ity of [place] 3.104.2.7 [place] .3.123513 Medica l .8 [place] 2019-04-11 2019-04-11 Refill East, 1.2.840.7 [id number] Univers 00:00:00 00:00:00 Santiago 01071.1.1 ity of 3.104.2.7 [place] .3.825192 Medica l .8 [place] 2019-04-09 2019-04-09 Refill East, 1.2.840.4 [id number] Univers 00:00:00 00:00:00 [place] 26776.1.1 ity of 3.104.2.7 [place] .3.004867 Medica l .8 [place] 2019-04-03 2019-04-03 Telephone Team, [facility] 1.2.840.6 [id number] Univers 00:00:00 00:00:00 Health 64563.1.1 [place]y [place] .3.234344 Medica [place] .8 [place] 2019-03-27 2019-03-27 Telephone Self, 1.2.840.7 [id number] Univers 00:00:00 00:00:00 Gadiel 32046.1.1 ity of 3.104.2.7 [place] .3.700490 Medica l .8 [place] 2019-01-17 2019-01-17 Office East, 1.2.840.1 [id number] Univers 07:37:21 10:32:51 Visit Santiago 97016.1.1 ity of 3.104.2.7 [place] .3.431128 Medica l .8 [place] 2019-01-04 2019-01-12 Office Eveline Hansen 1.2.840.1 [id number] Univers 11:19:32 11:08:05 Visit Mariela 73110.1.1 ity of 3.104.2.7 [place] .3.366902 Medica l .8 [place] 2019-01-10 2019-01-10 Telephone Stanislav, 1.2.840.1 [id number] Univers 00:00:00 00:00:00 Eladio Inman 61283.1.1 ity of 3.104.2.7 [place] .3.109726 Medica l .8 [facility] 2018-12-18 2018-12-18 Office Geraldine, 1.2.840.7 [id number] Univers 08:48:45 09:13:43 Visit Leyda 12925.1.1 it y of 3.104.2.7 [place] .3.100352 Medica l .8 [place] 2018-10-30 2018-10-30 Telephone East, 1.2.840.2 [id number] Univers 00:00:00 00:00:00 [place] 51146.1.1 ity of 3.104.2.7 [place] .3.331442 Medica l .8 [facility] 2018-10-23 2018-10-23 Orders Doctor 1.2.840.6 [id number] Univers 00:00:00 00:00:00 Only Unassigned, 59898.1.1 ity of [place] 3.104.2.7 [place] .3.846385 Medica l .8 [place] 2018-10-23 2018-10-23 Nurse Selvin, 1.2.840.4 [id number] Univers 00:00:00 00:00:00 Triage Stefanie 85714.1.1 ity of 3.104.2.7 [place] .3.254406 Medica l .8 [facility] 2018-10-23 2018-10-23 Telephone Self, 1.2.840.0 [id number] Univers 00:00:00 00:00:00 Gadiel 79555.1.1 ity of 3.104.2.7 [place] .3.411688 Medica l .8 [facility] 2018-10-20 2018-10-20 Telephone Self, 1.2.840.2 [id number] Univers 00:00:00 00:00:00 Gadiel 49196.1.1 ity of 3.104.2.7 [facility] l .8 [facility] Results Test Description Test Time Test Comments Results Result Comments Source COMP. METABOLIC PANEL (06392) 2022-05-06 22:42:55 Test Item Value Reference Range Interpretation Comme nts NA (test code = 2168314519) 137 mmol/L 135-145 K (test code = 5260087888) 3.2 mmol/L 3.5-5.0 L CL (test code = 0146785271) 100 mmol/L 98-108 CO2 TOTAL (test code = 9660616435) 23 mmol/L 23-31 AGAP (test code = 2960160301) 2-16 BUN (test code = 4112559104) 41 mg/dL 7-23 H GLUCOSE (test code = 8920972395) 98 mg/dL 70-110 CREATININE (test code = 1.55 mg/dL 0.50-1.04 H 4193495973) TOTAL BILI (test code = 0.8 mg/dL 0.1-1.3 5831071405) CALCIUM (test code = 6901144289) 8.3 mg/dL 8.6-10.6 L T PROTEIN (test code = 5429902803) 6.9 g/dL 6.3-8.2 ALBUMIN (test code = 0380528073) 3.9 g/dL 3.5-5.0 ALK PHOS (test code = 9528706445) 89 U/L 34-122 ALTv (test code = 1742-6) 101 U/L 5-35 H AST(SGOT) (test code = 2961340228) 203 U/L 13-40 H eGFR (test code = 9234656148) mL/min/1.73m2 KYLE (test code = KYLE) Association [...] tests). Lab Interpretation (test code = Abnormal 41243-7) [facility] WITH [id number] 22:33:52 Test Item Value Reference Range Interpretation Comments WBC (test code = See_Comment L [Automated 4790-2) message] The sy stem which generated this result transmitted reference range : 4.30 - 11.10 10*3/?L. The reference range was not used to interpret this result as normal/abnormal . RBC (test code = See_Comment [Automated 149-8) message] The sy stem which generated this [...] RDW-SD (test code = 46.3 fL 39.0-49.9 03827-7) RDW-CV (test code = 13.5 % 12.0-15.5 788-0) PLT (test code = See_Comment L [Automated 777-3) message] The sy stem which generated this result transmitted reference range : 166 - 358 10*3/ ?L. The reference r abbey was not used to interpret this result as normal/abnormal . MPV (test code = 9.5 fL 9.5-12.9 24344-9) NRBC/100 WBC (test See_Comment [Automat ed code = 3071940408) message] The system which generated this result transmitted reference range : 0.0 - 10.0 /100 WBCs. The refer ence range was not u sed to interpret th is result as normal/abnormal . NRBC x10^3 (test code See_Comment [Auto mated = 9391665648) message] The s ystem which generated this result transmitted reference range : 10*3/?L. The reference range was not used to interpret this result as normal/abnormal . GRAN MAT (NEUT) % 58.3 % (test code = 770-8) IMM GRAN % (test code 0.80 % = 8023111764) LYMPH % (test code = 28.1 % 736-9) MONO % (test code = 12.0 % 5905-5) EOS % (test code = 0.5 % 713-8) BASO % (test code = 0.3 % 706-2) GRAN MAT x10^3(ANC) 2.29 10*3/uL 1.88-7.09 (test code = 2085138721) IMM GRAN x10^3 (test 0.03 10*3/uL 0.00-0.06 code = 6819320366) LYMPH x10^3 (test code 1.10 10*3/uL 1.32-3.29 L = 731-0) MONO x10^3 (test code 0.47 10*3/uL 0.33-0.92 = 742-7) EOS x10^3 (test code = 0.03-0.39 L 711-2) BASO x10^3 (test code 0.01-0.07 = 704-7) Lab Interpretation Abnormal (test code = 54709-6) [facility] METABOLIC PANEL (NA, K, CL, CO2, GLUCOSE, BUN, CREATININE, CA)2022-04-22 21:43:42 Test Item Value Reference Range Interpretation Comments NA (test code = 142 mmol/L 135-145 2824094263) K (test code = 3.5 mmol/L 3.5-5.0 6117916064) CL (test code = 106 mmol/L 98-108 5975253873) CO2 TOTAL (test code = 26 mmol/L 23-31 7142001329) AGAP (test code = 2-16 4640805911) BUN (test code = 29 mg/dL 7-23 H 3702004368) GLUCOSE (test code = 84 mg/dL 70-110 0468101929) CREATININE (test code = 1.16 mg/dL 0.50-1.04 H 5900330821) CALCIUM (test code = 8.2 mg/dL 8.6-10.6 L 5005579106) eGFR (test code = mL/min/1.73m2 2417187822) KYLE (test code = KYLE) Association of [...] tests). Lab Interpretation Abnormal (test code = 79153-3) [facility] WITH [id number] 21:33:01 Test Item Value Reference Range Interpretation [...] (test code = 50.7 fL 39.0-49.9 H 39189-4) RDW-CV (test code = 14.6 % 12.0-15.5 788-0) PLT (test code = See_Comment L [Automated 777-3) message] The sy stem which generated this result transmitted reference range : 166 - 358 10*3/ ?L. The reference r abbey was not used to interpret this result as normal/abnormal . MPV (test code = 8.8 fL 9.5-12.9 L 75983-7) NRBC/100 WBC (test See_Comment [Automat ed code = 2893017368) message] The system which generated this result transmitted reference range : 0.0 - 10.0 /100 WBCs. The refer ence range was not u sed to interpret th is result as normal/abnormal . NRBC x10^3 (test code See_Comment [Auto mated = 5802739499) message] The s ystem which generated this result transmitted reference range : 10*3/?L. The reference range was not used to interpret this result as normal/abnormal . GRAN MAT (NEUT) % 70.9 % (test code = 770-8) IMM GRAN % (test code 0.50 % = 3251621622) LYMPH % (test code = 17.4 % 736-9) MONO % (test code = 9.0 % 5905-5) EOS % (test code = 1.7 % 713-8) BASO % (test code = 0.5 % 706-2) GRAN MAT x10^3(ANC) 4.60 10*3/uL 1.88-7.09 (test code = 3990546676) IMM GRAN x10^3 (test 0.03 10*3/uL 0.00-0.06 code = 2324502034) LYMPH x10^3 (test code 1.13 10*3/uL 1.32-3.29 L = 731-0) MONO x10^3 (test code 0.58 10*3/uL 0.33-0.92 = 742-7) EOS x10^3 (test code = 0.11 10*3/uL 0.03-0.39 711-2) BASO x10^3 (test code 0.03 10*3/uL 0.01-0.07 = 704-7) Lab Interpretation Abnormal (test code = 34209-9) [id number]:01:07 Test Item Value Reference Range Interpretation Comments Blood Culture-Aerobic No organisms No growth Previo us (test code = 02423-1) isolated prelim inary verified result was Culture [...] Culture-Anaerobic isolated preliminar y (test code = 59414-1) verifi ed result was Culture In Progress [...] CDT Lab Interpretation Normal (test code = 45457-7) [facility] CULTURE [id number] 06:01:07 Test Item Value Reference Range Interpretation Comments Blood Culture-Aerobic No organisms No growth Previo us (test code = 92878-6) isolated prelim inary verified result was Culture [...] Culture-Anaerobic isolated preliminar y (test code = 84742-2) verifi ed result was Culture In Progress [...] CDT Lab Interpretation Normal (test code = 99841-9) [facility] CULTURE [id number] 06:01:07 Test Item Value Reference Range Interpretation Comments Blood Culture-Aerobic No organisms No growth Previo us (test code = 56091-9) isolated prelim inary verified result was Culture [...] Culture-Anaerobic isolated preliminar y (test code = 40433-2) verifi ed result was Culture In Progress [...] CDT Lab Interpretation Normal (test code = 27041-6) [facility] [id number] 10:49:10 Test Item Value Reference Range Interpretation Comments NT-proBNP (test code 2660 pg/mL See_Comment H [Autom ated = 8979796750) message] The system which generated this result transmitted reference range : <=125. The reference range was not used to interpret this result as normal/abnormal . KYLE (test code = KYLE) Biotin has been reported to cause a negative bias, interpret results relative to patient's use of biotin. Lab Interpretation Abnormal (test code = 69717-1) [facility] [id number] 10:49:10 Test Item Value Reference Range Interpretation Comments NT-proBNP (test code 2660 pg/mL See_Comment H [Autom ated = 6838713985) message] The system which generated this result transmitted reference range : <=125. The reference range was not used to interpret this result as normal/abnormal . KYLE (test code = KYLE) Biotin has been reported to cause a negative bias, interpret results relative to patient's use of biotin. Lab Interpretation Abnormal (test code = 56004-8) [facility] (NA, K, CL, CO2, GLUCOSE, BUN, CREATININE, CA)2022-02-15 10:44:07 Test Item Value Reference Range Interpretation Comments NA (test code = 134 mmol/L 135-145 L 2438843409) K (test code = 3.2 mmol/L 3.5-5 L 1294153369) CL (test code = 98 mmol/L 98-108 2350023509) CO2 TOTAL (test code = 27 mmol/L 23-31 8417377378) AGAP (test code = 2-16 6079298224) BUN (test code = 19 mg/dL 7-23 4530643203) GLUCOSE (test code = 102 mg/dL 70-110 4116006104) CREATININE (test code = 0.95 mg/dL 0.5-1.04 5590222353) CALCIUM (test code = 8.5 mg/dL 8.6-10.6 L 6809272739) eGFR (test code = mL/min/1.73m2 0259898988) KYLE (test code = KYLE) Association of [...] tests). Lab Interpretation Abnormal (test code = 36300-7) [facility]2022-09-26 10:44:07 Test Item Value Reference Range Interpretation Comments MAGNESIUM (test code = 1046290325) 1.8 mg/dL 1.7-2.4 Lab Interpretation (test code = Normal 92329-4) [facility] 10:44:07 Test Item Value Reference Range Interpretation Comments MAGNESIUM (test code = 1540359841) 1.8 mg/dL 1.7-2.4 Lab Interpretation (test code = Normal 16113-9) [facility] METABOLIC PANEL (NA, K, CL, CO2, GLUCOSE, BUN, CREATININE, CA)2022-02-15 10:44:07 Test Item Value Reference Range Interpretation Comments NA (test code = 134 mmol/L 135-145 L 7772553213) K (test code = 3.2 mmol/L 3.5-5.0 L 9931982579) CL (test code = 98 mmol/L 98-108 7691615920) CO2 TOTAL (test code = 27 mmol/L 23-31 8717062565) AGAP (test code = 2-16 0340445805) BUN (test code = 19 mg/dL 7-23 1801722086) GLUCOSE (test code = 102 mg/dL 70-110 4277578894) CREATININE (test code = 0.95 mg/dL 0.50-1.04 5745092136) CALCIUM (test code = 8.5 mg/dL 8.6-10.6 L 5043796722) eGFR (test code = mL/min/1.73m2 0061968089) KYLE (test code = KYLE) Association of [...] tests). Lab Interpretation Abnormal (test code = 81729-7) [facility] WITH [id number] 10:12:06 Test Item Value Reference Range Interpretation [...] RDW-SD (test code = 47.8 fL 39-49.9 34552-1) RDW-CV (test code = 15.2 % 12-15.5 788-0) PLT (test code = See_Comment L [Automated 777-3) message] The sy stem which generated this result transmitted reference range : 166 - 358 10*3/ ?L. The reference r abbey was not used to interpret this result as normal/abnormal . MPV (test code = 8.9 fL 9.5-12.9 L 21762-9) NRBC/100 WBC (test See_Comment [Automat ed code = 1319913022) message] The system which generated this result transmitted reference range : 0.0 - 10.0 /100 WBCs. The refer ence range was not u sed to interpret th is result as normal/abnormal . NRBC x10^3 (test code See_Comment [Auto mated = 4231205955) message] The s ystem which generated this result transmitted reference range : 10*3/?L. The reference range was not used to interpret this result as normal/abnormal . GRAN MAT (NEUT) % 65.9 % (test code = 770-8) IMM GRAN % (test code 0.30 % = 8576095287) LYMPH % (test code = 21.0 % 736-9) MONO % (test code = 10.1 % 5905-5) EOS % (test code = 2.4 % 713-8) BASO % (test code = 0.3 % 706-2) GRAN MAT x10^3(ANC) 2.49 10*3/uL 1.88-7.09 (test code = 3129909562) IMM GRAN x10^3 (test 0-0.06 code = 8399197798) LYMPH x10^3 (test code 0.79 10*3/uL 1.32-3.29 L = 731-0) MONO x10^3 (test code 0.38 10*3/uL 0.33-0.92 = 742-7) EOS x10^3 (test code = 0.09 10*3/uL 0.03-0.39 711-2) BASO x10^3 (test code 0.01-0.07 = 704-7) Lab Interpretation Abnormal (test code = 86474-1) [facility] WITH [id number] 10:12:06 Test Item Value Reference Range Interpretation [...] RDW-SD (test code = 47.8 fL 39.0-49.9 21914-0) RDW-CV (test code = 15.2 % 12.0-15.5 788-0) PLT (test code = See_Comment L [Automated 777-3) message] The sy stem which generated this result transmitted reference range : 166 - 358 10*3/ ?L. The reference r abbey was not used to interpret this result as normal/abnormal . MPV (test code = 8.9 fL 9.5-12.9 L 90034-1) NRBC/100 WBC (test See_Comment [Automat ed code = 0567369976) message] The system which generated this result transmitted reference range : 0.0 - 10.0 /100 WBCs. The refer ence range was not u sed to interpret th is result as normal/abnormal . NRBC x10^3 (test code See_Comment [Auto mated = 4138249761) message] The s ystem which generated this result transmitted reference range : 10*3/?L. The reference range was not used to interpret this result as normal/abnormal . GRAN MAT (NEUT) % 65.9 % (test code = 770-8) IMM GRAN % (test code 0.30 % = 4128179026) LYMPH % (test code = 21.0 % 736-9) MONO % (test code = 10.1 % 5905-5) EOS % (test code = 2.4 % 713-8) BASO % (test code = 0.3 % 706-2) GRAN MAT x10^3(ANC) 2.49 10*3/uL 1.88-7.09 (test code = 9331168640) IMM GRAN x10^3 (test 0.00-0.06 code = 6975272106) LYMPH x10^3 (test code 0.79 10*3/uL 1.32-3.29 L = 731-0) MONO x10^3 (test code 0.38 10*3/uL 0.33-0.92 = 742-7) EOS x10^3 (test code = 0.09 10*3/uL 0.03-0.39 711-2) BASO x10^3 (test code 0.01-0.07 = 704-7) Lab Interpretation Abnormal (test code = 78909-1) [facility] WITH [id number] 11:18:28 Test Item Value Reference Range Interpretation [...] RDW-SD (test code = 49.5 fL 39-49.9 01817-1) RDW-CV (test code = 15.5 % 12-15.5 788-0) PLT (test code = See_Comment L [Automated 777-3) message] The sy stem which generated this result transmitted reference range : 166 - 358 10*3/ ?L. The reference r abbey was not used to interpret this result as normal/abnormal . MPV (test code = 11.4 fL 9.5-12.9 54187-8) IPF % (test code = 8.7 % 1.3-7.7 H Platelet count 4125247306) measured by fluorescence method. NRBC/100 WBC (test See_Comment [Automat ed code = 2116005374) message] The system which generated this result transmitted reference range : 0.0 - 10.0 /100 WBCs. The refer ence range was not u sed to interpret th is result as normal/abnormal . NRBC x10^3 (test code See_Comment [Auto mated = 5709389390) message] The s ystem which generated this result transmitted reference range : 10*3/?L. The reference range was not used to interpret this result as normal/abnormal . GRAN MAT (NEUT) % 62.0 % (test code = 770-8) IMM GRAN % (test code 0.80 % = 7326069595) LYMPH % (test code = 22.2 % 736-9) MONO % (test code = 9.6 % 5905-5) EOS % (test code = 5.1 % 713-8) BASO % (test code = 0.3 % 706-2) GRAN MAT x10^3(ANC) 2.21 10*3/uL 1.88-7.09 (test code = 2469209935) IMM GRAN x10^3 (test 0.03 10*3/uL 0-0.06 code = 8477439060) LYMPH x10^3 (test code 0.79 10*3/uL 1.32-3.29 L = 731-0) MONO x10^3 (test code 0.34 10*3/uL 0.33-0.92 = 742-7) EOS x10^3 (test code = 0.18 10*3/uL 0.03-0.39 711-2) BASO x10^3 (test code 0.01-0.07 = 704-7) POLYCHROMASIA (test 2+ See_Comment [Automa arpit code = 80786-5) message] The system which generated this result [...] . Lab Interpretation Abnormal (test code = 94777-8) [facility] METABOLIC PANEL (NA, K, CL, CO2, GLUCOSE, BUN, CREATININE, CA)2022-02-13 10:39:07 Test Item Value Reference Range Interpretation Comments NA (test code = 136 mmol/L 135-145 8849583609) K (test code = 4.1 mmol/L 3.5-5 9042460750) CL (test code = 102 mmol/L 98-108 5458304263) CO2 TOTAL (test code = 27 mmol/L 23-31 0371825043) AGAP (test code = 2-16 0384959379) BUN (test code = 22 mg/dL 7-23 3032467513) GLUCOSE (test code = 94 mg/dL 70-110 3025688314) CREATININE (test code = 0.94 mg/dL 0.5-1.04 3435104128) CALCIUM (test code = 8.1 mg/dL 8.6-10.6 L 1549830298) eGFR (test code = mL/min/1.73m2 4025933854) KYLE (test code = KYLE) Association of [...] tests). Lab Interpretation Abnormal (test code = 90951-9) [facility] 01:50:10 Test Item Value Reference Range Interpretation Comments Height (test code = in 8612224905) Weight (test code = lbs 2432429287) Systolic BP (test code mmHg = 9748131297) Diastolic BP (test code mmHg = 4290491078) Heart Rate (test code = bpm 1070073799) BSA (test code = 1.85 m2 2479137962) IVS (test code = 1.22 cm 4560820701) Interventricular Septum 1.22 cm Diastolic Thickness by 2D (test code = 0092440) LVIDD (test code = 5.00 cm 4135285846) Left Ventricular End 117.9 mL Diastolic Volume by Teichholz Method (test code = 9301033) LVPWD (test code = 1.22 cm 4323531732) PW (test code = 1.22 cm 0.6-1.5 2079701387) EF(Teich) (test code = 74.60 % 6331779179) LVIDS (test code = 2.80 cm 3776827556) Left Ventricular End 29.9 mL Systolic Volume by Teichholz Method (test code = 0407480) FS (test code = 44 % 1299251373) EF - 2D (test code = 74.60 % 60530534) LVOT diameter (test 2.16 cm code = 0060582551) LVOT area (test code = 3.70 cm2 3548785959) Ao root diam (test code 3.40 cm = 3404706973) Aortic root (test code 3.4 cm = 5255526658) Ao root annulus (test 3.4 cm code = 0926966649) LA size (test code = 3.4 cm 4619180559) TR Peak Spencer (test code 330.0 cm/s = 4690419092) Triscuspid Valve mmHg Regurgitation Peak Gradient (test code = 5235694862) PV REGURGITATION PEAK mmHg GRADIENT (test code = 5713628329) PI dec slope (test code 137.20 cm/s2 = 3348221763) LAV(MOD-sp4) (test code 102.90 mL = 1090632263) MV Peak E Spencer (test 84.1 cm/s code = 8511920211) MV Peak A Spencer (test 40.1 cm/s code = 9250273401) E/A ratio (test code = ratio 4432288296) MV valve area p 1/2 3.70 cm2 method (test code = 9379674583) MV dec slope (test code 413.00 cm/s2 = 6868575239) MV P1/2t max spencer (test 83.70 cm/s code = 4098777549) MV Prop V (test code = 41.80 cm/s 1128415695) Tapse (test code = 1.83 cm 1751919418) LVOT stroke volume 96.90 cm3 (test code = 8696958441) LVOT peak spencer (test 125.5 cm/s code = 0477313337) LVOT mn grad (test code mmHg = 9700621604) AV LVOT peak gradient mmHg (test code = 3205943276) LVOT peak VTI (test 26.4 cm code = 3284047945) LV V1 mean (test code = 78.10 cm/s 1011658428) Aortic valve mean 103.7 cm/s velocity (test code = 6528204727) Ao peak spencer (test code 165.6 cm/s = 6732099729) Ao VTI (test code = 37.2 cm 4463870329) AV area by cont VTI 2.6 cm2 (test code = 0484699718) AV area peak spencer (test 2.8 cm2 code = 2814568736) Ao max PG (test code = 11.00 mm[Hg] 8425453260) AV peak gradient (test mmHg code = 4032600162) AV valve area (test 2.60 cm2 code = 1292448569) AV mean gradient (test mmHg code = 5567352192) LA Volume Index (BP) 55.2 mL/m2 (test code = 7695218418) LA volume (BP) (test 102.1 mL code = 8067493676) LAV(MOD-sp2) (test code 86.10 mL = 8271785129) A2C EF (test code = 61.20 % 3522840002) EF(sp2-el) (test code = 61.60 % 0418396748) SV(MOD-sp2) (test code 47.10 mL = 3260372732) LV Diastolic Volume 70.7 mL (BP) (test code = 6776486941) A4C EF (test code = 53.00 % 9932496673) EF(MOD-bp) (test code = 56.70 % 1664596603) EF(sp4-el) (test code = 53.90 % 1201004755) LV Systolic Volume (BP) 30.6 mL (test code = 0543620733) SV(MOD-bp) (test code = 40.10 mL 2499538764) SV(MOD-sp4) (test code 32.40 mL = 5492460918) SV(sp4-el) (test code = 33.10 mL 9473721123) EF (test code = 6500443970) Left Ventricular Stroke 40.1 mL Volume by 2-D Biplane-MOD (test code = 8620869) LV Diastolic Volume 38.2 mL/m2 Index (BP) (test code = 2834555308) LV Systolic Volume 16.5 mL/m2 Index (BP) (test code = 9832981392) Radiology Study observation (narrative) (test code = 36742-8) KYLE (test code = KYLE) ?Left?Ventricle: Left [...] left ventricular wall [facility] normal. [id number]01 Test Item Value Reference Interpretation Comments Range TROPONIN I (test See_Comment [Automated code = [id number]) message] The system which generated this result [...] biotin. Lab Interpretation Normal (test code = 20033-5) [id number] 05:41:40 Test Item Value Reference Range Interpretation Comments NT-proBNP (test code 4250 pg/mL See_Comment H [Autom ated = 9142383031) message] The system which generated this result transmitted reference range : <=125. The reference range was not used to interpret this result as normal/abnormal . KYLE (test code = KYLE) Biotin has been reported to cause a negative bias, interpret results relative to patient's use of biotin. Lab Interpretation Abnormal (test code = 06660-6) [facility] [id number] 05:35:21 Test Item Value Reference Range Interpretation [...] seconds. Lab Interpretation Normal (test code = 97186-1) [facility] [id number] 05:35:21 Test Item Value Reference Range Interpretation [...] seconds. Lab Interpretation Normal (test code = 79043-7) [facility] / [id number] 05:33:21 Test Item Value Reference Range Interpretation Comments PROTIME PATIENT (test See_Comment [Auto mated message] code = 5964-2) The system [employer] generated this result transmitted ref erence range: 12.0 - 1 4.7 Seconds. The re ference range was not u sed to interpret this result as normal/abnor mal. INR (test code = 6301-6) Nor mal INR <1.1; Warfarin Therap eutic range 2.0 to 3. 0 or 2.5 to 3.5, dep ending upon the indica tions. Lab Interpretation (test Normal code = 73438-5) [facility]. METABOLIC PANEL (92494)2022-02-11 05:33:21 Test Item Value Reference Range Interpretation Comments NA (test code = 137 mmol/L 135-145 6613073864) K (test code = 4.3 mmol/L 3.5-5 4449370883) CL (test code = 103 mmol/L 98-108 6856480741) CO2 TOTAL (test code = 25 mmol/L 23-31 0917894105) AGAP (test code = 2-16 1362722802) BUN (test code = 19 mg/dL 7-23 0896884545) GLUCOSE (test code = 120 mg/dL 70-110 H 2105736549) CREATININE (test code = 1.15 mg/dL 0.5-1.04 H 8561140000) TOTAL BILI (test code = 0.9 mg/dL 0.1-1.5 8699015560) CALCIUM (test code = 8.9 mg/dL 8.6-10.6 5257446170) T PROTEIN (test code = 6.6 g/dL 6.3-8.2 7778741225) ALBUMIN (test code = 4.0 g/dL 3.5-5 5125551417) ALK PHOS (test code = 73 U/L 34-122 3446057071) ALTv (test code = 18 U/L 5-35 1742-6) AST(SGOT) (test code = 31 U/L 13-40 7089939438) eGFR (test code = mL/min/1.73m2 1453760433) KYLE (test code = KYLE) Association of [...] tests). Lab Interpretation Abnormal (test code = 59326-9) [facility]. METABOLIC PANEL (43313)2022-02-11 05:33:21 Test Item Value Reference Range Interpretation Comments NA (test code = 137 mmol/L 135-145 1748509077) K (test code = 4.3 mmol/L 3.5-5.0 2882191705) CL (test code = 103 mmol/L 98-108 4035621531) CO2 TOTAL (test code = 25 mmol/L 23-31 8308079276) AGAP (test code = 2-16 6426783156) BUN (test code = 19 mg/dL 7-23 9572500545) GLUCOSE (test code = 120 mg/dL 70-110 H 8373718953) CREATININE (test code = 1.15 mg/dL 0.50-1.04 H 0793456423) TOTAL BILI (test code = 0.9 mg/dL 0.1-1.1 4993500067) CALCIUM (test code = 8.9 mg/dL 8.6-10.6 3059370595) T PROTEIN (test code = 6.6 g/dL 6.3-8.2 7681038667) ALBUMIN (test code = 4.0 g/dL 3.5-5.0 4391281286) ALK PHOS (test code = 73 U/L 34-122 7987777645) ALTv (test code = 18 U/L 5-35 1742-6) AST(SGOT) (test code = 31 U/L 13-40 9777811162) eGFR (test code = mL/min/1.73m2 6471676127) KYLE (test code = KYLE) Association of [...] tests). Lab Interpretation Abnormal (test code = 39574-8) [facility] [id number] 05:33:21 Test Item Value Reference Range Interpretation [...] tions. Lab Interpretation (test Normal code = 08369-5) [facility] WITH RZUV9873-64-57 05:14:37 Test Item Value Reference Range Interpretation [...] RDW-SD (test code = 47.9 fL 39-49.9 91564-3) RDW-CV (test code = 14.9 % 12-15.5 788-0) PLT (test code = See_Comment L [Automated 777-3) message] The sy stem which generated this result transmitted reference range : 166 - 358 10*3/ ?L. The reference r abbey was not used to interpret this result as normal/abnormal . MPV (test code = 9.1 fL 9.5-12.9 L 80905-2) NRBC/100 WBC (test See_Comment [Automat ed code = 4883706880) message] The system which generated this result transmitted reference range : 0.0 - 10.0 /100 WBCs. The refer ence range was not u sed to interpret th is result as normal/abnormal . NRBC x10^3 (test code See_Comment [Auto mated = 1807453378) message] The s ystem which generated this result transmitted reference range : 10*3/?L. The reference range was not used to interpret this result as normal/abnormal . GRAN MAT (NEUT) % 78.5 % (test code = 770-8) IMM GRAN % (test code 0.20 % = 5895321521) LYMPH % (test code = 11.6 % 736-9) MONO % (test code = 8.4 % 5905-5) EOS % (test code = 1.1 % 713-8) BASO % (test code = 0.2 % 706-2) GRAN MAT x10^3(ANC) 3.45 10*3/uL 1.88-7.09 (test code = 6436481239) IMM GRAN x10^3 (test 0-0.06 code = 4497509080) LYMPH x10^3 (test code 0.51 10*3/uL 1.32-3.29 L = 731-0) MONO x10^3 (test code 0.37 10*3/uL 0.33-0.92 = 742-7) EOS x10^3 (test code = 0.05 10*3/uL 0.03-0.39 711-2) BASO x10^3 (test code 0.01-0.07 = 704-7) Lab Interpretation Abnormal (test code = 98093-1) [facility] Coronavirus 2018 Iauxxun6973-50-06 18:08:00 Test Item Value Reference Range Interpretation [...] det ection of nucleic acids f rom ktfKTJY-XrY-4 v irus and diagnosis of SA RS-CoV-2 virusinfection. It is an Emergency Use Authorization ( EUA) testauthorized by the U.S. FDA. BASIC METABOLIC QATGH1709-37-95 09:37:00 Test Item Value Reference Range Interpretation [...] = 9.0 mg/dL 8.0-10.5 N CA) PROTHROMBIN DFWP6158-88-22 09:32:00 Test Item Value Reference Range Interpretation [...] (to prevent recurrent infar ct). CBC W/AUTO GQZG9948-14-39 09:32:00 Test Item Value Reference Range Interpretation [...] (test code NO = MDIFF) ECG 12 xbjv2573-57-25 15:14:00 Test Item Value Reference Range Interpretation Comments Lab Interpretation (test code = Normal 19806-7) [facility]BGEBC6359[facility]-26 08:47:00 Test Item Value Reference Range Interpretation Comments ACT-ISTAT (test code 249 SEC 74-137 H Perform ed by certified = ACTI) dorr operator at [facility] - XR CHEST 1 Q5184-46-44 00:00:00 [facility] : 1955 Sex: F FAX: Carmenza Kelly DO [phone] [place]: St: ADM FAX: Mike Scales MD [phone] FAX: Bahman Chopra [phone] Name: LIO WATTS [facility] [place] [place] : 1955 Age/S: 66/F [address] [place] [address] Unit #: [id number] Loc: [place] [address] Phys: Bahman Chopra [employer] Acct: [id number] Dis Date: Status: ADM IN PHONE #: [phone] Exam Date: 06/17/2021 1320 FAX #: [phone] Reason: WATCHMAN EXAMS: CPT CODE: [id number] XR CHEST 1 V 70351 PROCEDURE INFORMATION: Exam: XR Chest Exam date [...] Chopra Technologist: RT Taylor(R) Trnscrd Date/Time/By: 06/17/2021 (143) : By:Susanna Orig Print D/T: S: 06/17/2021 (0056) PAGE 1 Signed ReportCOVID 19 Asymptomatic IH WS8808-50-11 12:29:00 Test Item Value Reference Range Interpretation [...] high or waivedcomplexit y tests. BASIC METABOLIC TKDLG2316-91-34 11:37:00 Test Item Value Reference Range Interpretation [...] code = 9.0 mg/dL 8.0-10.5 N CA) TTGUQCPOVL0943-01-73 11:37:00 Test Item Value Reference Range Interpretation Comments PREALBUMIN (test code = PREALB) 24.3 mg/dL 16.0-40.0 N PROTHROMBIN BGPF9681-51-26 11:03:00 Test Item Value Reference Range Interpretation [...] (to prevent recurrent infar ct). CBC W/AUTO ALIW8496-00-98 10:59:00 Test Item Value Reference Range Interpretation [...] 0.0-0.1 N NRBC#) - XR CHEST 2 [id number] 00:00:00 [facility] 1955 Sex: F FAX: Carmenza Kelly [phone] Jerome: St: PRE FAX: Mike Scales MD [phone] Name: LIO WATTS [facility] [place] [place] : 1955 Age/S: 66/F [address] [place] [address] Unit #: [id number] Loc: [place] [address] Phys: Mike Lund MD Acct: [id number] Dis Date: Status: PRE [facility] PHONE #: [phone] Exam Date: 06/16/2021 1120 FAX #: [phone] Reason: PREOP EXAMS: CPT CODE: [id number] XR CHEST 2 V 62845 PROCEDURE INFORMATION: Exam: XR Chest Exam date [...] Technologist: Danielle Nix RT(R) Trnscrd Date/Time/By: 06/16/2021 (1421) : By: [email or web address] Orig Print D/T: S: 06/16/2021 (7279) PAGE 1 Signed ReportGastrointestinal mjezh5715-49-40 04:35:05 Test Item Value Reference Interpretation Comments [...] Rotavirus PCR (test Not Detected code = 3648727) Salmonella PCR (test Not Detected code = [...] [facility] lchkyrw8859-16-23 19:30:47 Test Item Value Reference Range Interpretation Comments Case number (test [id number] code = 9812836) Surgical pathology See link below for PDF report (test code = Lab Report 2255) Result status (test This is Supplemental code = 8023205) Report for [id number] [facility]2021-04-09 16:31:00 Test Item Value Reference Range Interpretation Comments POC Activated Clotting Time (test code 153 s = POC Activated Clotting Time) [facility] WorthIdezkruZNNPGBNLIZ0158-17-59 16:31:00 Test Item Value Reference Range Interpretation Comments POC Activated Clotting Time (test code 153 s = POC Activated Clotting Time) [facility] WorthHjwxsauQVSEKBEPKP1931-43-44 16:31:00 Test Item Value Reference Range Interpretation Comments POC Activated Clotting Time (test code 153 s = POC Activated Clotting Time) [facility] WorthBzutjlrLRRCPXMCGY0959-52-51 16:31:00 Test Item Value Reference Range Interpretation Comments POC Activated Clotting Time (test code 153 s = POC Activated Clotting Time) [facility] WorthWfrzeroTNYUEPGCNK4065-99-69 16:31:00 Test Item Value Reference Range Interpretation Comments POC Activated Clotting Time (test code 153 s = POC Activated Clotting Time) [facility] WorthGmvyeuoWNBWLRTYDF2034-83-41 16:31:00 Test Item Value Reference Range Interpretation Comments POC Activated Clotting Time (test code 153 s = POC Activated Clotting Time) [facility] WorthJpxcrufBQNSLEMIZD2692-91-05 16:31:00 Test Item Value Reference Range Interpretation Comments POC Activated Clotting Time (test code 153 s = POC Activated Clotting Time) [facility] WorthBmjhgnjAQAUTNMDDO3216-49-59 14:37:00 Test Item Value Reference Range Interpretation Comments POC Activated Clotting Time (test code 454 s = POC Activated Clotting Time) [facility] WorthVxokovcAELYFLGWFY9951-17-58 14:37:00 Test Item Value Reference Range Interpretation Comments POC Activated Clotting Time (test code 454 s = POC Activated Clotting Time) [facility] WorthIcdhmiqQSZQUUCSSS7419-25-72 14:37:00 Test Item Value Reference Range Interpretation Comments POC Activated Clotting Time (test code 454 s = POC Activated Clotting Time) [place] 383331-04-09 14:37:00 Test Item Value Reference Range Interpretation Comments POC Activated Clotting Time (test code 454 s = POC Activated Clotting Time) [facility] WorthZegcmvhAMPOMPGTHV9429-26-10 14:37:00 Test Item Value Reference Range Interpretation Comments POC Activated Clotting Time (test code 454 s = POC Activated Clotting Time) [facility] WorthKfvbepoZFFABMRQUP1394-38-49 14:37:00 Test Item Value Reference Range Interpretation Comments POC Activated Clotting Time (test code 454 s = POC Activated Clotting Time) [facility] WorthFfkyjyhXIFGULJACC4099-30-00 14:37:00 Test Item Value Reference Range Interpretation Comments POC Activated Clotting Time (test code 454 s = POC Activated Clotting Time) [facility] WorthXeeqaqzRFEHQHSKIQ7816-54-22 14:13:00 Test Item Value Reference Range Interpretation Comments POC Activated Clotting Time (test code 354 s = POC Activated Clotting Time) [facility] WorthQbympdwBSKKBZZBCU0684-02-72 14:13:00 Test Item Value Reference Range Interpretation Comments POC Activated Clotting Time (test code 354 s = POC Activated Clotting Time) [facility] WorthPppxmlgBEWFZREMUX1421-75-27 14:13:00 Test Item Value Reference Range Interpretation Comments POC Activated Clotting Time (test code 354 s = POC Activated Clotting Time) [facility] WorthChxihshIMFRZQODKB2365-34-34 14:13:00 Test Item Value Reference Range Interpretation Comments POC Activated Clotting Time (test code 354 s = POC Activated Clotting Time) [facility] WorthZeupmkzILUZJYSGOY6944-84-07 14:13:00 Test Item Value Reference Range Interpretation Comments POC Activated Clotting Time (test code 354 s = POC Activated Clotting Time) [facility] WorthWufgzibKXJEMJWHFX4446-48-75 14:13:00 Test Item Value Reference Range Interpretation Comments POC Activated Clotting Time (test code 354 s = POC Activated Clotting Time) [facility] WorthSaxjtlvIVLTMNFOGS4436-96-99 14:13:00 Test Item Value Reference Range Interpretation Comments POC Activated Clotting Time (test code 354 s = POC Activated Clotting Time) [facility] CGXAGSJ1871-92-53 10:37:00Negative (08/29/20 5:37 AM) [facility] XBYTA7789-62-07 10:37:41302Lpcowkhf [facility] CenterannCHEM PANEL 2020-08-29 10:37:0028[facility] TowandaCHEM PHOQZ0357-30-37 10:37:001.01[facility] HermannCHEM FFDRA7228-50-20 10:37:74711Zyrsfuzc HermannCHEM NZKTD5865-01-76 10:37:003.8[facility] HermannCHEM ONMRZ7680-45-97 10:37:50780Bqubqnay HermannCHEM TFIHS1146-93-27 10:37:0028[facility] HermannCHEM RVQHS7743-83-89 10:37:009.8 [facility]annCHEM FZBKQ8935-00-44 10:37:0011.8[facility] HermannCHEM PANEL 2020-08-29 10:37:0059[facility] HermannCHEM FGENU5620-41-45 10:37:002.9[facility] GeiwcdfRSLARNHXQV8150-79-29 10:37:006.8[facility] RapferyIYGMLFCOGO5951-04-10 10:37:004.47[facility] QavlfccENRJGBXVDG0777-94-64 10:37:0010.6[facility] ZOIUDRMYBV0883-73-00 10:37:0034.0[facility] PlhnydcSZGIPJRWRU4393-87-98 10:37:00 76.1[facility] ZscgrqrLJXHXNZEQR8006-41-57 10:37:00 Test Item Value Reference Range Interpretation Comments MCH (test code = MCH) 23.8 pg 27.0-31.0 [facility] YhunrwnAXXBGUOZVV4342-22-03 10:37:0031.3[facility] HermannHEMATOLOGY 2020-08-29 10:37:0018.2[facility] UgdwrjbHRZDXUBRIW6030-08-63 10:37:51198Rmceocan QvprypeCGRVIEPDUO5425-07-89 10:37:007.5[facility] XvbxfolOJECYFLTLQ2461-34-12 10:37:00 Test Item Value Reference Range Interpretation Comments PT (test code = PT) 12.8 s 12.0-14.7 [facility] RomnvfuLIJFEBWHEY3561-46-14 10:37:00 Test Item Value Reference Range Interpretation Comments INR (test code = INR) 0.97 1 0.85-1.17 [facility] NwskyodTXVBDWTPHA1954-75-84 10:37:00 Test Item Value Reference Range Interpretation Comments PTT (test code = PTT) 25.0 s 22.9-35.8 [facility] IcfqmtdTQTYQXPMFL5758-02-48 10:37:0070.5[facility] HermannHEMATOLOGY 2020-08-29 10:37:0018.8[facility] YcugijtICTGEDAIRC5332-29-76 10:37:009.5[facility] TzcbeeaDUFRFNAHXL1993-47-81 10:37:000.9[facility] NmjxvvmSLCDCISLAF9642-21-19 10:37:000.3[facility] HzfjfivANOVHZNYRW4424-50-58 10:37:004.8[facility] SLXCYQHCZS2846-63-79 10:37:001.3[facility] BwnsnblSHJSQPFWFP9297-54-79 10:37:000.6 [facility] GifqoukIYCWEQMTTZ4979-73-27 10:37:000.1[facility] HermannHEMATOLOGY 2020-08-29 10:37:001+ *ABN*(08/29/20 5:37 AM)[facility] YineiwpTPVHEDOUWY6443-21-55 10:37:00Not Detected (08/29/20 5:37 AM)[facility] HermannBLOOD BANK RESULTS 2020-08-29 10:37:00Negative (08/29/20 5:37 AM)[facility] HermannCHEM FOUFQ1870-80-83 10:37:21026Rminayhc HermannCHEM GOQUN8660-89-72 10:37:0028[facility] HermannCHEM ZLFIR5769-88-33 10:37:001.01[facility] HermannCHEM QKRPX1363-47-09 10:37:73378 [facility]annCHEM TBKQK3827-68-58 10:37:003.8[facility] HermannCHEM PANEL 2020-08-29 10:37:68827Vjcwmqxs HermannCHEM OFDHS5754-70-88 10:37:0028[facility] HermannCHEM BXPJI4952-56-97 10:37:009.8[facility] HermannCHEM YAYJV9449-99-95 10:37:0011.8[facility] HermannCHEM IVFPM4347-52-10 10:37:0059[facility] HermannCHEM SITED6990-70-87 10:37:002.9[facility] AduqwqrZNQNYWPDJI7033-23-40 10:37:006.8 [facility] ShgsjnhPUCZVFHOOT3392-51-55 10:37:004.47[facility] HermannHEMATOLOGY 2020-08-29 10:37:0010.6[facility] RmbvcvtJDHSSRWWWE8114-95-53 10:37:0034.0[facility] IlebssyITXWPURRLN2363-21-26 10:37:0076.1[facility] NafkwtjTEXCHUSTVD3431-65-70 10:37:00 Test Item Value Reference Range Interpretation Comments MCH (test code = MCH) 23.8 pg 27.0-31.0 [facility] GakbydsYUKIFTWOMD8231-25-89 10:37:0031.3[facility] HermannHEMATOLOGY 2020-08-29 10:37:0018.2[facility] BwnpddeBDIVPCCBDE7962-82-84 10:37:67038Xanoqpdq PnqfovdVLCZSXPNPA7285-25-26 10:37:007.5[facility] YjfgeqaUSLPMWTJTM9127-84-39 10:37:00 Test Item Value Reference Range Interpretation Comments PT (test code = PT) 12.8 s 12.0-14.7 [facility] IphbmrbNAOKGWHDES1092-04-13 10:37:00 Test Item Value Reference Range Interpretation Comments INR (test code = INR) 0.97 1 0.85-1.17 [facility] FnyggyyHTSBEJNWUN2172-29-54 10:37:00 Test Item Value Reference Range Interpretation Comments PTT (test code = PTT) 25.0 s 22.9-35.8 [facility] VymraloKASVXUXCKZ3729-64-89 10:37:0070.5[facility] HermannHEMATOLOGY 2020-08-29 10:37:0018.8[facility] ZztbllkPKPQTCZPOG0268-18-16 10:37:009.5[facility] DzdjkafDNNXZGHYKC6229-11-91 10:37:000.9[facility] BzpjyhsXSEMGNGCXR3480-00-82 10:37:000.3[facility] KubwlfcDWVQWBFCNJ3060-33-45 10:37:004.8[facility] SVDCFDCQIN7661-09-19 10:37:001.3[facility] YclpnqmODCNDIRESO7212-67-27 10:37:000.6 [facility] EmdibblQMRUBBOIHI2875-32-61 10:37:000.1[facility] HermannHEMATOLOGY 2020-08-29 10:37:001+ *ABN*(08/29/20 5:37 AM)[facility] EsmltqiEWEFYMJZAH1076-12-68 10:37:00Not Detected (08/29/20 5:37 AM)[facility] HermannBLOOD BANK RESULTS 2020-08-29 10:37:00Negative (08/29/20 5:37 AM)[facility] HermannCHEM UHMTD5342-16-84 10:37:27648Ahoftout HermannCHEM ONNLQ7884-24-81 10:37:0028[facility] HermannCHEM PWZWC2943-30-45 10:37:001.01[facility] HermannCHEM CBMET0399-29-94 10:37:03582 [facility] HermannCHEM FCJAC0499-10-08 10:37:003.8[facility] HermannCHEM PANEL 2020-08-29 10:37:33089Zjcjudix HermannCHEM UYVEX1455-72-39 10:37:0028[facility] HermannCHEM OREFW9412-55-86 10:37:009.8[facility] HermannCHEM DDFNG5370-05-02 10:37:0011.8[facility] HermannCHEM BVUZW8052-84-83 10:37:0059[facility] HermannCHEM RIBKF1594-51-04 10:37:002.9[facility] ZucpqwoTYMPBDFDVZ3855-04-35 10:37:006.8 [facility] PmjyyltLSGFCZPGQJ6902-32-72 10:37:004.47[facility] HermannHEMATOLOGY 2020-08-29 10:37:0010.6[facility] YacgrtaNGYOKAFOPH8777-86-81 10:37:0034.0[facility] BcgyqgsNTXNGOGMCV0817-22-60 10:37:0076.1[facility] PbpekuqLRFKUTYRTP2907-73-20 10:37:00 Test Item Value Reference Range Interpretation Comments MCH (test code = MCH) 23.8 pg 27.0-31.0 [facility] YckpvpvBICXSJPHLS3452-15-34 10:37:0031.3[facility] HermannHEMATOLOGY 2020-08-29 10:37:0018.2[facility] CknnwppJHVRCLUPIH5468-91-46 10:37:64407Qvlmlenh UajyngbTIBHXJLOCI8421-95-43 10:37:007.5[facility] CgsemhgQRNMOCSLYS8950-08-12 10:37:00 Test Item Value Reference Range Interpretation Comments PT (test code = PT) 12.8 s 12.0-14.7 [facility] XlvmnomWMVCQDWVCH9686-54-58 10:37:00 Test Item Value Reference Range Interpretation Comments INR (test code = INR) 0.97 1 0.85-1.17 [facility] MdrsutzONEAZZYTRF3812-76-55 10:37:00 Test Item Value Reference Range Interpretation Comments PTT (test code = PTT) 25.0 s 22.9-35.8 [facility] QujhgpbTSFEPVAMHL9656-38-21 10:37:0070.5[facility] HermannHEMATOLOGY 2020-08-29 10:37:0018.8[facility] MeevxteJKBHTFZNLX6217-02-17 10:37:009.5[facility] LjjnzbkGSYJJCNJMF1079-95-56 10:37:000.9[facility] EawahicRTMGGGNCAR4623-43-47 10:37:000.3[facility] QzaajphQBYAAFJSCI8810-51-13 10:37:004.8[facility] PCCLBMJVYC3283-62-26 10:37:001.3[facility] UqqhgkkUVCXROFYKZ2389-40-22 10:37:000.6 [facility] KmppszxBPHKCJZEPP7128-45-58 10:37:000.1[facility] HermannHEMATOLOGY 2020-08-29 10:37:001+ *ABN*(08/29/20 5:37 AM)[facility] MvjqjbwSPDTMCWXVP0014-37-55 10:37:00Not Detected (08/29/20 5:37 AM)[facility] HermannBLOOD BANK RESULTS 2020-08-29 10:37:00Negative (08/29/20 5:37 AM)[facility] HermannCHEM WOBWL7778-60-69 10:37:41190Odvlmwng HermannCHEM QFXOZ1139-16-25 10:37:0028[facility] HermannCHEM HKEYX5316-93-87 10:37:001.01[facility] HermannCHEM OKIXL8741-25-42 10:37:72255 [facility] HermannCHEM AOBCO9723-71-47 10:37:003.8[facility] HermannCHEM PANEL 2020-08-29 10:37:63736Roppcuqj HermannCHEM WWBEL7661-67-43 10:37:0028[facility] HermannCHEM FPJRB4361-33-45 10:37:009.8[facility] HermannCHEM YGOAK8896-16-53 10:37:0011.8[facility] HermannCHEM PJPBQ6939-51-04 10:37:0059[facility] HermannCHEM AXKTV8864-31-98 10:37:002.9[facility] LmjxniiQXLUOJSFQS6927-17-01 10:37:006.8 [facility] CpehwsnLFYZKLLEVN7782-38-53 10:37:004.47[facility] HermannHEMATOLOGY 2020-08-29 10:37:0010.6[facility] CvtlfunAVVHIUCURB9768-56-33 10:37:0034.0[facility] KwynuhmQYHZROCGZS4322-01-65 10:37:0076.1[facility] FjehlftYYYFOSFRPG1271-76-16 10:37:00 Test Item Value Reference Range Interpretation Comments MCH (test code = MCH) 23.8 pg 27.0-31.0 [facility] WexpdmhKBZLIMBIKG5415-33-68 10:37:0031.3[facility] HermannHEMATOLOGY 2020-08-29 10:37:0018.2[facility] GrgwmosFJGEAIHVPM0572-02-12 10:37:28597Xgyqswjl XrehnuuOOZZEOYHQD6649-89-63 10:37:007.5[facility] PamqxdxXJSRLLUIXI3558-85-46 10:37:00 Test Item Value Reference Range Interpretation Comments PT (test code = PT) 12.8 s 12.0-14.7 [facility] PgaoovvBQNPSCXBWW1249-21-67 10:37:00 Test Item Value Reference Range Interpretation Comments INR (test code = INR) 0.97 1 0.85-1.17 [facility] ZfiqtloECEANENSWL1323-76-15 10:37:00 Test Item Value Reference Range Interpretation Comments PTT (test code = PTT) 25.0 s 22.9-35.8 [facility] AtgyopyKPPYNBIVZE4704-40-17 10:37:0070.5[facility] HermannHEMATOLOGY 2020-08-29 10:37:0018.8[facility] GrbtclpBXJUVELGCE0356-41-82 10:37:009.5[facility] UntqwiiICLYVCQABA0555-41-86 10:37:000.9[facility] SavfmzhUTPPNNJBCX5671-66-11 10:37:000.3[facility] QcgmlysJYGVVNBXYC1687-99-89 10:37:004.8[facility] NIQYPLKUCZ9996-40-26 10:37:001.3[facility] ZtlomrgOBKVZJIJXZ0757-56-23 10:37:000.6 [facility] NeyuqevQJDRHQURYS6453-59-58 10:37:000.1[facility] HermannHEMATOLOGY 2020-08-29 10:37:001+ *ABN*(08/29/20 5:37 AM)[facility] JfbfsiyNTKZVABUAY4764-12-02 10:37:00Not Detected (08/29/20 5:37 AM)[facility] HermannBLOOD BANK RESULTS 2020-08-29 10:37:00Negative (08/29/20 5:37 AM)[facility] HermannCHEM UCRJS8638-49-37 10:37:86468Rmthatbe HermannCHEM BMVUT2676-97-19 10:37:0028[facility]annCHE[facility] TWFVM4143-43-50 10:37:001.01[facility]annCHE[facility] FKPBE6168-07-48 10:37:32541 [facility] XVLBE0568-03-80 10:37:003.8[facility]annCHEM PANEL 2020-08-29 10:37:83357Qtktexmb [facility]annCHE[facility] LVYSX7686-25-89 10:37:0028[facility]CHE[facility] HBGPF9932-11-20 10:37:009.8[facility]annCHE[facility] QFFKT8519-10-31 10:37:0011.8[facility]annCHE[facility] VUYKG4418-13-74 10:37:0059[facility]CHE[facility] ZJDMJ7910-62-85 10:37:002.9[facility] IvmfjtvWVVRDWHEVH6026-68-46 10:37:006.8 [facility] RfivppgAUOQKHRPLN4838-65-57 10:37:004.47[facility]annHEMATOLOGY 2020-08-29 10:37:0010.6[facility] OfcikabDZVACCJOEJ0336-62-28 10:37:0034.0[facility] LwlmyfqFJYWNWYZEF2816-20-69 10:37:0076.1[facility] UytsxqlTDQJZRTIOM8586-58-16 10:37:00 Test Item Value Reference Range Interpretation Comments MCH (test code = MCH) 23.8 pg 27.0-31.0 [facility] DpbpurcDTCZQOGGKB2256-75-90 10:37:0031.3[facility]annHEMATOLOGY 2020-08-29 10:37:0018.2[facility] VjvkuteXNRNNQDWMW2635-26-43 10:37:92054Jcxuzehy RbzkpnzSCXSGZDGJW2999-11-29 10:37:007.5[facility] FdhyorlFSWVYDCRUG3291-42-59 10:37:00 Test Item Value Reference Range Interpretation Comments PT (test code = PT) 12.8 s 12.0-14.7 [facility] VepvrezQWASEUPOKR4490-42-10 10:37:00 Test Item Value Reference Range Interpretation Comments INR (test code = INR) 0.97 1 0.85-1.17 [facility] RiubsyyXDQLPFQNQQ9760-45-08 10:37:00 Test Item Value Reference Range Interpretation Comments PTT (test code = PTT) 25.0 s 22.9-35.8 [facility] CloeduxQGTGPWNTIO0317-98-27 10:37:0070.5[facility]annHEMATOLOGY 2020-08-29 10:37:0018.8[facility] YhnsixwZNJJYTOWHM6527-45-23 10:37:009.5[facility] FttylaiVQWVGLGIXK6837-99-06 10:37:000.9[facility] TywwkdmWJJSOEXOVJ7254-27-09 10:37:000.3[facility] VzfsogqIYLOLNWMXO9789-19-00 10:37:004.8[facility] OIOHNAIKRX1086-95-34 10:37:001.3[facility] QdtcrbqBZGHDQOZOO5840-82-23 10:37:000.6 [facility] XvzqrriORTXCVXCNW6149-24-01 10:37:000.1[facility]annHEMATOLOGY 2020-08-29 10:37:001+ *ABN*(08/29/20 5:37 AM)[facility] CnicmekRXVEHOZAOM0283-42-95 10:37:00Not Detected (08/29/20 5:37 AM)[facility] 2020-08-29 10:37:00Negative (08/29/20 5:37 AM)[facility]annCHEM IHOMV3326-12-72 10:37:07739Mqfqfnvr HermannCHEM YSGOR5449-34-28 10:37:0028[facility]annCHE[facility] ZOFQE9012-32-75 10:37:001.01[facility]annCHE[facility] EXGYZ3491-95-53 10:37:47856 [facility]annCHE[facility] JBPOI6387-32-65 10:37:003.8[facility]annCHEM PANEL 2020-08-29 10:37:27196Wroxksxe HermannCHEM QGBGR1562-34-16 10:37:0028[facility]annCHEM TPEHZ7124-93-42 10:37:009.8[facility]annCHEM QLCOK3582-12-66 10:37:0011.8[facility]annCHEM VWHJB6362-46-11 10:37:0059[facility]annCHEM QRTUU3448-06-72 10:37:002.9[facility] KbhdemuJARCPSKGHK3758-21-78 10:37:006.8 [facility] QibomwtVMLFSLQTLB5474-65-29 10:37:004.47[facility]annHEMATOLOGY 2020-08-29 10:37:0010.6[facility] ZbwnbvlTVOTTQFTHI2879-03-08 10:37:0034.0[facility] RfwdeosLPDNZSIPHK6204-89-92 10:37:0076.1[facility] MqtrkpqKIQGPYOQHZ1180-10-38 10:37:00 Test Item Value Reference Range Interpretation Comments MCH (test code = MCH) 23.8 pg 27.0-31.0 [facility] EqecfctQDJYRFJZWN1761-30-29 10:37:0031.3[facility]annHEMATOLOGY 2020-08-29 10:37:0018.2[facility] WfrxoijXKHDIRZVOK7341-00-84 10:37:78949Bdlayuoo CuifkleUCQNUWAUCK1476-38-43 10:37:007.5[facility] UofrepwOMIATKTAAT3523-55-74 10:37:00 Test Item Value Reference Range Interpretation Comments PT (test code = PT) 12.8 s 12.0-14.7 [facility] PjbpkdoYYEYTTVMVL4889-34-40 10:37:00 Test Item Value Reference Range Interpretation Comments INR (test code = INR) 0.97 1 0.85-1.17 [facility] LwzqylwKDIVOAXGPL1984-00-96 10:37:00 Test Item Value Reference Range Interpretation Comments PTT (test code = PTT) 25.0 s 22.9-35.8 [facility] LyjjfgyBOPZEPJEVB3140-71-22 10:37:0070.5[facility]annHEMATOLOGY 2020-08-29 10:37:0018.8[facility] RbgvftcFQQNMKJCQU2170-12-63 10:37:009.5[facility] KrhzgbxDIGEEBWKFC0019-93-28 10:37:000.9[facility] EcsxdomBHWQZOEIPN9876-31-10 10:37:000.3[facility] WzsjazbZLULSGKRGK5383-24-43 10:37:004.8[facility] Marty TIPWDYZHHK2420-24-66 10:37:001.3[facility] KihnqwsVJMSIBXLGI2084-93-93 10:37:000.6 [facility] KiavgtsSXUZCUKUUQ5215-85-64 10:37:000.1[facility]annHEMATOLOGY 2020-08-29 10:37:001+ *ABN*(08/29/20 5:37 AM)[facility] XpnipmtTKDGICWWTZ4754-17-03 10:37:00Not Detected (08/29/20 5:37 AM)[facility]annBLOOD BANK RESULTS 2020-08-29 10:37:00Negative (08/29/20 5:37 AM)[facility] HermannCHEM UBIVN5975-40-17 10:37:26464Xfodscmr HermannCHEM XGEHA0532-61-08 10:37:0028[facility] HermannCHEM VLZKR9922-09-49 10:37:001.01[facility] HermannCHEM KUDYV2302-87-56 10:37:08995 [facility]annCHEM OFOZX3005-69-91 10:37:003.8[facility]annCHEM PANEL 2020-08-29 10:37:85029Ycvblhlm HermannCHEM FEBLV5476-42-01 10:37:0028[facility] HermannCHEM VEBIP7862-84-49 10:37:009.8[facility] HermannCHEM XVTWP5712-94-11 10:37:0011.8[facility] HermannCHEM GQWAM9790-63-39 10:37:0059[facility]annCHEM MYXLV2908-71-95 10:37:002.9[facility] SfmooutAGKXMBHCDU8082-23-08 10:37:006.8 [facility] ZqplfnsMAVQOQLCHW6779-91-93 10:37:004.47[facility]annHEMATOLOGY 2020-08-29 10:37:0010.6[facility] NmsahfuPQMSOXJOZX1449-39-50 10:37:0034.0[facility] LssbwbmOAWRWXJACH6172-01-36 10:37:0076.1[facility] LixlfljWWRAKIXWWO1815-62-25 10:37:00 Test Item Value Reference Range Interpretation Comments MCH (test code = MCH) 23.8 pg 27.0-31.0 [facility] CrhhhgiKMDIIPUJAB0043-58-77 10:37:0031.3[facility]annHEMATOLOGY 2020-08-29 10:37:0018.2[facility] GhokfmaTFLEMIWRQT7039-27-20 10:37:02385Gvyfgofh RvqgutuLWRTLTYQKF6513-32-44 10:37:007.5[facility] PjmwrgiROJYDEKDJV3213-19-21 10:37:00 Test Item Value Reference Range Interpretation Comments PT (test code = PT) 12.8 s 12.0-14.7 [facility] MmeyvfgMSVSJFTFPT4079-86-36 10:37:00 Test Item Value Reference Range Interpretation Comments INR (test code = INR) 0.97 1 0.85-1.17 [facility] JbfvqwqIBXMNZMUYW2855-34-19 10:37:00 Test Item Value Reference Range Interpretation Comments PTT (test code = PTT) 25.0 s 22.9-35.8 [facility] PirtoqdHLFEVMJGIK1560-01-52 10:37:0070.5[facility]annHEMATOLOGY 2020-08-29 10:37:0018.8[facility] WoowberGBASEOXFDR1613-15-68 10:37:009.5[facility] RhvoxlaDFQPRWCINU0071-99-10 10:37:000.9[facility] FyshzpwYVQLFFEHJE7739-48-79 10:37:000.3[facility] ZcfmsulSTZTALTZCW0856-78-53 10:37:004.8[facility] [place] XRWQTDVSWA2044-36-52 10:37:001.3[facility] LtqcnklGNLXUKHNDE4518-86-71 10:37:000.6 [facility] KzbmojmYVIEHWHOKR5041-22-61 10:37:000.1[facility]annHEMATOLOGY 2020-08-29 10:37:001+ *ABN*(08/29/20 5:37 AM)[facility] SbkhwfqQUFANFHDTM8491-20-90 10:37:00Not Detected (08/29/20 5:37 AM)[facility], TV,PCR, IN SLTZU7728-87-93 15:38:00 Test Item Value Reference Range Interpretation Comments FT (test code = CHTR) Not detected (qualifier Not Detected N value) FT (test code = Not detected (qualifier Not Detected N NGONO) value) FT (test code = TRVG) Not detected (qualifier Not Detected N value) [facility] WITH EVNVEYXDHOS1482-15-55 10:57:00 Test Item Value Reference Range Interpretation Comments Color (test code = UCOLR) Dk. Yellow Clarity (test code = UCLAR) Hazy Glucose (test code = UGLUC) NEGATIVE NEGATIVE N Bilirubin (test code = UBILI) NEGATIVE NEGATIVE N Ketones (test code = UKET) NEGATIVE NEGATIVE N Specific [place] (test code = 1.025 1.005-1.030 A USPGR) [...]
[2022-09-22] MEDS ORDERED: ALBUTEROL 2.5 MG/3 ML NEB SOL ONE (05:44)
[2022-09-22] MEDS ORDERED: predniSONE 20 MG TAB ONE (05:44)
--- NOTE | 2022-09-22 06:13 | ER ---
Nurse's Notes [facility] Name: Marjan Kolb Age: 67 yrs Sex: Female : 1955 Arrival Date: 09/22/2022 Time: 05:09 Bed 4 Private MD: Diagnosis: COPD/ Chronic obstructive pulmonary disease, unspecified Presentation: 09/22 05:15 Chief complaint: EMS states: toned out for SOB/difficulty breathing. 96% RA. lg3 Coronavirus screen: Client denies travel out of the [place] in the last 14 days. At this time, the client does not indicate any symptoms associated with coronavirus-19. Ebola Screen: No symptoms or risks identified at this time. Initial Sepsis Screen: Does the patient meet any 2 criteria? No. Patient's initial sepsis screen is negative. Does the patient have a suspected source of infection? No. Patient's initial sepsis screen is negative. Risk Assessment: Do you want to hurt yourself or someone else? Patient reports no desire to harm self or others. Onset of symptoms was September 22, 2022. 05:15 Method Of Arrival: EMS: [facility] lg3 05:15 Acuity: BLAYNE 3 lg3 Triage Assessment: 05:18 General: Appears in no apparent distress. comfortable, Behavior is calm, cooperative. lg3 Pain: Complains of pain in abdomen, throat, head. EENT: No deficits noted. No signs and/or symptoms were reported regarding the EENT system. Neuro: No deficits noted. Gonzalez Agitation-Sedation Scale (RASS): 0 - Alert and Calm Level of Consciousness is awake, alert, obeys commands, Oriented to person, place, time, situation. Cardiovascular: No deficits noted. Denies chest pain. Respiratory: No deficits noted. Reports shortness of breath Airway is patent Respiratory effort is even, unlabored, Respiratory pattern is regular, symmetrical. GI: No deficits noted. Abdomen is round non-distended, Reports lower abdominal pain. : No deficits noted. No signs and/or symptoms were reported regarding the genitourinary system. Derm: No signs and/or symptoms reported regarding the dermatologic system. Skin is intact, is thin, Skin is dry, Skin is normal, Skin temperature is warm. Musculoskeletal: No deficits noted. No signs and/or symptoms reported regarding the musculoskeletal system. Circulation, motion, and sensation intact. Range of motion: intact in all extremities. Historical: - Allergies: 05:18 Azithromycin; lg3 05:18 Bactrim; lg3 05:18 butorphanol; lg3 05:18 Fentanyl; lg3 05:18 Reglan; lg3 05:18 Sulfa (Sulfonamide Antibiotics); lg3 05:18 TRIMETHOPRIM; lg3 - Home Meds: 05:18 Metoprolol Tartrate Oral [Active]; Lisinopril Oral [Active]; lg3 - PMHx: 05:18 Anxiety; Atrial fibrillation; Bipolar disorder; esophageal varicies; Hepatitis; HIV lg3 positive; Hypertensive disorder; Migraine; panic attack; Angina pectoris; - Immunization history:: Adult Immunizations up to date, Client reports receiving the 2nd dose of the Covid vaccine, Pneumococcal vaccine is up to date, Flu vaccine is up to date. - Social history:: Smoking status: Patient reports the use of cigarette tobacco products, denies chronic smoking, but will smoke occasionally, Patient/guardian denies using alcohol, street drugs. - Family history:: not pertinent. Screenin:23 [facility] ED Fall Risk Assessment (Adult) History of falling in the last 3 months, lg3 including since admission No falls in past 3 months (0 pts). Abuse screen: Denies threats or abuse. Denies injuries from another. Nutritional screening: No deficits noted. Tuberculosis screening: No symptoms or risk factors identified. Assessment: 05:23 General: see triage assessment . lg3 05:26 General: lab notified of blood draw. lg3 Vital Signs: 05:13 BP 214 / 111; Pulse 67; Resp 16; Temp 97.7(TE); Pulse Ox 93% on R/A; Weight 80.29 kg jb4 (M); Height 5 ft. 4 in. (R); 05:13 Body Mass Index 30.38 (80.29 kg, 162.56 cm) jb4 ED Course: 05:10 Patient arrived in ED. rv1 05:11 Howard Samaniego MD is Attending Physician. rt 05:18 Triage completed. lg3 05:18 Arm band placed on right wrist. lg3 05:23 Patient has correct armband on for positive identification. Placed in gown. Bed in low lg3 position. Call light in reach. Side rails up X 1. Client placed on continuous cardiac and pulse oximetry monitoring. NIBP monitoring applied. security monitor on. Door closed. Noise minimized. Warm blanket given. 05:35 Chest Single View XRAY In Process Unspecified. EDMS 06:17 No provider procedures requiring assistance completed. Patient did not have IV access jb4 during this emergency room visit. Administered Medications: 05:54 Drug: DuoNeb Nebulize (3:1) (2.5 mg - 0.5 mg) 3 ml Route: Nebulizer; lg3 05:54 Drug: predniSONE PO 40 mg Route: PO; lg3 06:17 Not Given (Patient Refused): Ketorolac IM 15 mg IM once jb4 Outcome: 06:12 Discharge ordered by . rt 06:17 Discharged to home via wheelchair, with family. jb4 06:17 Condition: stable 06:17 Discharge instructions given to patient, Instructed on discharge instructions, follow up and referral plans. medication usage, Demonstrated understanding of instructions, follow-up care, medications, Prescriptions given X 1. 06:18 Patient left the ED. jb4 Signatures: Dispatcher [employer] EDMS Mode Bhatt, RN RN jb4 Christine Perdomo, ASHLEY RN lg3 Howard Samaniego MD MD rt Ness Nicholas rv1
--- NOTE | 2022-09-22 06:13 | EDPHYS ---
Physician Documentation [facility] Name: Marjan Kolb Age: 67 yrs Sex: Female : 1955 Arrival Date: 09/22/2022 Time: 05:09 Bed 4 Private MD: ED Physician Howard Samaniego HPI: 09/22 05:20 This 67 yrs old Female presents to ER via EMS with complaints of Shortness of breath. rt 05:20 Patient presents to the ED with dyspnea starting yesterday. Symptoms worsened rt overnight. Patient does report a cough. Denies chest pain, Aleve-D complaints at this time. Symptoms are moderate severity, no other aggravating or alleviating factors.. Historical: - Allergies: 05:18 Azithromycin; lg3 05:18 Bactrim; lg3 05:18 butorphanol; lg3 05:18 Fentanyl; lg3 05:18 Reglan; lg3 05:18 Sulfa (Sulfonamide Antibiotics); lg3 05:18 TRIMETHOPRIM; lg3 - Home Meds: 05:18 Metoprolol Tartrate Oral [Active]; Lisinopril Oral [Active]; lg3 - PMHx: 05:18 Anxiety; Atrial fibrillation; Bipolar disorder; esophageal varicies; Hepatitis; HIV lg3 positive; Hypertensive disorder; Migraine; panic attack; Angina pectoris; - Immunization history:: Adult Immunizations up to date, Client reports receiving the 2nd dose of the Covid vaccine, Pneumococcal vaccine is up to date, Flu vaccine is up to date. - Social history:: Smoking status: Patient reports the use of cigarette tobacco products, denies chronic smoking, but will smoke occasionally, Patient/guardian denies using alcohol, street drugs. - Family history:: not pertinent. ROS: 05:20 Constitutional: Negative for fever, chills, and weight loss, Cardiovascular: Negative rt for chest pain, palpitations, and edema, Abdomen/GI: Negative for abdominal pain, nausea, vomiting, diarrhea, and constipation, MS/Extremity: Negative for injury and deformity, Skin: Negative for injury, rash, and discoloration, Neuro: Negative for headache, weakness, numbness, tingling, and seizure, Psych: Negative for depression, anxiety, suicide ideation, homicidal ideation, and hallucinations. 05:20 Respiratory: Positive for cough, shortness of breath. Exam: 05:20 Constitutional: This is a well developed, well nourished patient who is awake, alert, rt and in no acute distress. Head/Face: Normocephalic, atraumatic. Chest/axilla: Normal chest wall appearance and motion. Nontender with no deformity. No lesions are appreciated. Cardiovascular: Regular rate and rhythm with a normal S1 and S2. No gallops, murmurs, or rubs. Normal PMI, no JVD. No pulse deficits. Abdomen/GI: Soft, non-tender, with normal bowel sounds. No distension or tympany. No guarding or rebound. No evidence of tenderness throughout. Skin: Warm, dry with normal turgor. Normal color with no rashes, no lesions, and no evidence of cellulitis. MS/ Extremity: Pulses equal, no cyanosis. Neurovascular intact. Full, normal range of motion. Neuro: Awake and alert, GCS 15, oriented to person, place, time, and situation. Cranial nerves II-XII grossly intact. Motor strength 5/5 in all extremities. Sensory grossly intact. Cerebellar exam normal. Normal gait. Psych: Awake, alert, with orientation to person, place and time. Behavior, mood, and affect are within normal limits. 05:20 Respiratory: Coarse breath sounds with wheezes heard on all lung patel, no respiratory distress. 05:29 ECG was reviewed by the Attending Physician. rt Vital Signs: 05:13 BP 214 / 111; Pulse 67; Resp 16; Temp 97.7(TE); Pulse Ox 93% on R/A; Weight 80.29 kg jb4 (M); Height 5 ft. 4 in. (R); 05:13 Body Mass Index 30.38 (80.29 kg, 162.56 cm) jb4 MDM: 05:12 Patient medically screened. rt 06:15 Differential diagnosis: COPD, pneumonia, pneumothorax. Antibiotic administration: Not rt indicated, the patient does not have an appreciated infiltrate. Data reviewed: vital signs, nurses notes, old medical records, radiologic studies. Independent interpretation of the following test(s) in the Emergency Department X-Ray: My interpretation is No consolidation seen on my interpretation of the chest x-ray images. Test considered but Not performed: CT: Low suspicion for PE, CT angiogram not indicated. Care significantly affected by the following chronic conditions: Chronic Obstructive Pulmonary Disease. Counseling: I had a detailed discussion with the patient and/or guardian regarding:. ED course: Patient came to the ED with reported dyspnea. The patient has no hypoxia, chest x-ray is clear. The patient is requesting narcotic pain medications. Patient is known to have frequent visits for chronic pain complaints. At this time, I believe that opiate pain medications are both at home the patient to get benefit. I discussed with the patient opiate alternatives, patient refuses the states that she wishes to be discharged.. 09/22 05:12 Order name: Chest Single View XRAY rt 09/22 05:12 Order name: EKG; Complete Time: 05:12 rt 09/22 05:12 Order name: EKG - Nurse/Tech; Complete Time: :32 rt EC:29 Rate is 66 beats/min. Rhythm is regular, Normal Sinus Rhythm with No ectopy, LVH with rt repolarization abnormality. QRS [place] is Normal. NV interval is normal. QRS interval is normal. QT interval is normal. Interpreted by me. Administered Medications: 05:54 Drug: DuoNeb Nebulize (3:1) (2.5 mg - 0.5 mg) 3 ml Route: Nebulizer; lg3 05:54 Drug: predniSONE PO 40 mg Route: PO; lg3 06:17 Not Given (Patient Refused): Ketorolac IM 15 mg IM once jb4 Disposition Summary: 09/22/22 06:12 Discharge Ordered Location: Home rt Problem: chronic rt Symptoms: are unchanged rt Condition: Stable rt Diagnosis - COPD/ Chronic obstructive pulmonary disease, unspecified rt Followup: rt - With: Private Physician - When: 2 - 3 days - Reason: Discharge Instructions: - Discharge Summary Sheet rt - Chronic Obstructive Pulmonary Disease rt Forms: - Medication Reconciliation Form rt - Thank You Letter rt - Antibiotic Education rt - Prescription Opioid Use rt Prescriptions: - Prednisone 20 mg Oral Tablet - take 2 tablets by ORAL route once daily for 5 days; 10 tablet; Refills: 0, rt Product Selection Permitted Signatures: Dispatcher [employer] Christine Perry RN RN lg3 Howard Samaniego MD MD rt Mode Bhatt RN jb4
[2022-09-22 06:24] VITALS: BP 214/111; TEMP 97.7; O2SAT 93
--- NOTE | 2022-09-22 10:33 | RAD REPORT ---
EXAM DESCRIPTION: XR Chest, 1 View CLINICAL HISTORY: The patient is 67 years old and is Female; COPD TECHNIQUE: Single view of the chest. COMPARISON: September 20, 2022 CT chest. FINDINGS: Lungs: No pulmonary vascular congestion or consolidation. Pleural space: Unremarkable. No pneumothorax. Heart: Cardiomegaly. Mediastinum: Unremarkable. Bones/joints: The bones and joints are unchanged as visualized. Upper abdomen: No free air in the visualized upper abdomen. IMPRESSION: No acute cardiopulmonary process identified. Electronically signed by: Leyda Velazquez MD 09/22/2022 5:48 AM CDT Due to temporary technical issues with the PACS/Fluency reporting system, reports are being signed by the in house radiologist without review as a courtesy to ensure prompt reporting. The interpreting r adiologist is fully responsible for the content of the report.
--- NOTE | 2022-09-22 14:05 | EKG ---
Test Date: 2022-09-22 Test Time: 05:26:11 Tour Counselor: GWEN MEASUREMENT RESULTS: Intervals: Rate: 66 IN: 182 QRSD: 90 QT: 440 QTc: 461 [place]: P: 42 IN: 182 QRS: 28 T: 13 INTERPRETIVE STATEMENTS: Normal sinus rhythm Left ventricular hypertrophy with repolarization abnormality Abnormal ECG Electronically Signed On 09-22-22 14:05:23 CDT by Mike Lund
--- NOTE | 2022-09-22 14:12 | EKG ---
Test Date: 2022-09-19 Test Time: 22:27:29 Forest Ranger: MEASUREMENT RESULTS: Intervals: Rate: 62 AL: 186 QRSD: 90 QT: 458 QTc: 464 [place]: P: -3 AL: 186 QRS: 40 T: 61 INTERPRETIVE STATEMENTS: Normal sinus rhythm Left ventricular hypertrophy with repolarization abnormality Abnormal ECG Compared to ECG 08/27/2022 07:29:53 Left ventricular hypertrophy now present Early repolarization now present Sinus bradycardia no longer present ST (T wave) deviation no longer present Prolonged QT interval no longer present Electronically Signed On 09-22-22 14:09:29 CDT by Mike Lund
== END 2022-09-22 06:18 | disposition home or self-care (01) ==
LOC: ER 05:09
DX: J44.9 Chronic obstructive pulmonary disease, unspecified (principal); I10 Essential (primary) hypertension; Z21 Asymptomatic human immunodeficiency virus [HIV] infection status; F17.210 Nicotine dependence, cigarettes, uncomplicated; I48.91 Unspecified atrial fibrillation; F41.9 Anxiety disorder, unspecified; Z88.1 Allergy status to other antibiotic agents; Z88.2 Allergy status to sulfonamides; Z88.5 Allergy status to narcotic agent; Z88.8 Allergy status to other drugs, medicaments and biological substances
CPT/HCPCS: 93005 ×2; 71045; J7512; J7613; 94640; 99285

== ENCOUNTER 2022-09-22 12:31 | Emergency (ER) | payer OTHER ==
--- OUTSIDE RECORDS SUMMARY | 2022-09-22 12:52 | XMS REPORT | Continuity of Care Document ---
:1955 Author Organization [facility] t Address [address] [place] [address] Care Team Providers Name Role Phone Urmila [...] Tomy Marie MD Attending Clinician Doctor Unassigned, [place] Attending Clinician Unavailable Bill COLES Attending Clinician Unavailable Bill Rose Attending Clinician CHARITY MCALLISTER Attending Clinician Unavailable Charity Mcallister MD Attending Clinician GADIEL KOEHLER Attending Clinician Unavailable Mike Lund Attending Clinician Unavailable NIKOLAI REEVES Attending Clinician Unavailable Eliseo Arce MD Attending Clinician Carol Ann IZQUIERDO, Sarai Lieberman Attending Clinician [phone] Ashly Pelletier MA Attending Clinician Unavailable [...] Clinician Unavailable Geraldine SALGUERO, Leyda Attending Clinician [phone] Selvin RAMIREZ, Stefanie Attending Clinician Unavailable [...] Number Effective Date Expiration Date S ource [facility] COMMUNITY PLAN [id number] 2012 STAR PLUS OON 00:00:00 [facility] [id number] 2019 DUAL COMPLETE HMO 00:00:00 [facility] [id number] 2019 PLUS 00:00:00 MEDICAID [facility] [id number] 2020 00:00:00 [facility] [id number] 2019 [facility] [place] STAR 00:00:00 [employer] MEDICARE ADV [id number] 2019 2019 00:00:00 00:00:00 Problems Condition Condition Condition Status Onset Resolution Last Treating Co mments Source Name Details Category Date Date Treatment Clinician Date Dyspnea, Dyspnea, Disease Active Unive rs unspecifie unspecifie 02-11 it y of d type d type 00:00: [address] Branch Gastropare Gastropare Disease Active Overview : Methodi sis sis 4-[address] 00:[facility]: [facility] note l might be different from the original. Added automatic ally from request for surgery [id number] Dysphagia Dysphagia Disease Active Overview: Methodi 4-[address] 00:00: [facility] 00 note l might be different from the original. 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 2020-10-15 Memoria PVI EPS PVI 3-30 17:07:00 l ABLATION ABLATION 00:00: Patel n W/ CARTO / W/ CARTO / 00 GA / T GA / T Active 08/19/2020 [facility] Food Food Disease Active 2019-05 Methodi intoleranc [...] N/V [facility] hoxazole - Clear 00:00: [facility] trimetho DA Active [facility] prim - Clear 00:00: [facility] codeine DA Active SV N/V [facility] - Clear 00:00: [facility] Metoclop Propensi Active [place] ramide ty [...] DRUG Active High Hives 2017- Univers INGREDI 2 ity of 00:00: 00 Medical Branch TRIMETHO DRUG Active Hives Univers PRIM INGREDI 2 ity of 00:00: Medical Branch Fentanyl Drug Active Other - See Unknown Un matt Allergy comments 06-30 reaction ity o f 00:00: Medical Branch [...] HOXAZOLE INGREDI 2-02 ity of 00:00: [place] [facility] Sulfamet Propensi Active Other - [...] Unknown - See comments Bactrim Bactrim Active [facility] Family History Family Member Diagnosis Comments Start Date Stop Date Source Natural father Diabetes [facility] Natural father Other - see comments [facility] Natural [facility] Hy[facility] father [facility] Natural mother [facility] Social History Social Habit Start Date Stop Date Quantity Comments Source Gender identity 2020-10-06 Identifies as Method ist 15:23:56 female gender Hospital (finding) History SDOH [facility] Alcohol Frequency Hospita l History SDOH [facility] Alcohol Std Drinks Hospit al History SDOH [facility] Alcohol [facility] Sexual orientation [facility] History of Social 2022-08-26 2022-08-[address] function 00:00:00 00:00:00 Hospital Exposure to 2022-04-30 2022-05-10 Yes University of SARS-CoV-2 (event) 00:00:00 10:25:00 [facility] Tobacco use and 2022-02-11 2022-02-11 Former smokeless Uni versity of exposure 00:00:00 00:00:00 tobacco user [facility] Tobacco Comment 2022-02-11 2022-02-11 Smokes approx 1-2 Un iversity of 00:00:00 00:00:00 cigarettes per [facility] [place] [facility] day when she Branch smokes Alcohol intake 2020-12-08 2020-12-08 Current drinker [facility] 00:00:00 00:00:00 of [facility] (finding) Cigarettes smoked 2020-09-05 2020-09-[address] current (pack per 00:00:00 00:00:00 [facility] l day) - Reported Cigarette 2020-09-05 2020-09-05 [facility] pack-years 00:00:00 00:00:00 Hospital Alcohol Comment 2016-09-23 2016-09-23 rare [facility] 00:00:00 00:00:00 Hospital History of tobacco 2011-09-29 User of smokeless University of use 00:00:00 tobacco [facility] Sex Assigned At [birth year] [facility] 00:00:00 00:00:00 Smoking Status Start Date Stop Date Source Ex-smoker 2022-02-11 00:00:2022-02-11 00:00:00 Universi ty of [facility] Medications Ordered Filled Start Stop Current Ordering Indication Dosage Frequency Signature Comments Components Source Medication Medication Date Date Medication? Clinician (SIG) Name Name ravindra Yes [id number] Take one Univers ne-tenofovi 4-04 po daily ity of r alafen 00:00: [place] (DESCOVY) 00 Medical tablet Branch emtricbao Yes [id number] Take one Univers ne-tenofovi 4-04 po daily ity of r alafen 00:00: [place] (DESCOVY) 00 Medical tablet Branch potassium 2021-05 [...] :00 ONCE, 1 Medical dose, On Branch [facility] 05/10/22 at 1245, JOE NaCl 0.9% 2021-05 No 1000mL at 999 Uni vers (NS) bolus 07-11 mL/hr, ity of infusion 17:45: 20:00 1,000 mL, [place] as 1,000 mL 00 :00 IV Medical Infusion, Branch ONCE, 1 dose, On [facility] 12/19/22 at 1145, JOE cefpodoxime 2021-05- No [id number] 100mg Take 1 Univers 100 mg 2-17 12-25 tablet by ity of tablet 00:00: 05:59 mouth in [place] 00 :00 the Medical morning Branch and 1 tablet in the evening. Do all this for 7 days. cefpodoxime 2021-05- No [id number] 100mg Take 1 Univers 100 mg 2-17 12-25 tablet by ity of tablet 00:00: 05:59 mouth in [place] 00 :00 the [facility] morning Branch and 1 tablet in the evening. Do all this for 7 days. cefpodoxime 2021-05- No [id number] 100mg Take 1 Univers 100 mg 2-17 12-25 tablet by ity of tablet 00:00: 05:59 mouth in [place] 00 :00 the [facility] morning Branch and 1 tablet in the [...] Medical ONCE, 1 Branch dose, On [facility] 05/06/22 at 1800, JOE ketorolac 2021-05 No 15mg 15 mg, Unive rs (TORADOL) 2-15 12-15 Slow IV ity of injection 22:00: 22:19 Push, [place] 15 mg 00 :00 ONCE, 1 Medical dose, On Branch [facility] 05/06/22 at 1600, JOE NaCl 0.9% [...] 05/06/22 at 1515, JOE ondansetron 2021- Yes [id number] 1-2 U nivers 4 mg tablet 2-15 tablets ity o f 00:00: every 8 [place] 00 hours as Medical needed for Branch nausea benzonatate 2021-05 Yes [id number] 200mg Take 1 Univers 200 mg 2-15 capsule by ity of capsule 00:00: mouth 3 [place] 00 (three) Medical times Branch daily as needed for Cough. albuterol 2021-05 Yes [id number] 2{puff} Inhale 2 Univers 90 2-15 Puffs ity of mcg/actuati 00:00: every 4 [place] as on inhaler 00 (four) Medical hours as Branch needed for Wheezing or Shortness of Breath. butalbital- 2021-05 Yes [id number] 1{tbl} Take 1 Univers acetaminoph 2-15 tablet by ity of en-caff 00:00: mouth [place] 50-325-40 00 every 4 Medical mg tablet (four) Branch hours as needed (headache) . ondansetron 2021-05 Yes [id number] 1-2 U nivers 4 mg tablet 2-15 tablets ity o f 00:00: every 8 [place] 00 hours as Medical needed for Branch nausea benzonatate 2021-05 Yes [id number] 200mg Take 1 Univers 200 mg 2-15 capsule by ity of capsule 00:00: mouth 3 [place] 00 (three) Medical times Branch daily as needed for Cough. albuterol 2021-05 Yes [id number] 2{puff} Inhale 2 Univers 90 2-15 Puffs ity of mcg/actuati 00:00: every 4 [place] as on inhaler 00 (four) Medical hours as Branch needed for Wheezing or Shortness of Breath. butalbital- 2021-05 Yes [id number] 1{tbl} Take 1 Univers acetaminoph 2-15 tablet by ity of en-caff 00:00: mouth [place] 50-325-40 00 every 4 Medical mg tablet (four) Branch hours as needed (headache) . ondansetron 2021-05 Yes [id number] 1-2 U nivers 4 mg tablet 2-15 tablets ity o f 00:00: every 8 [place] 00 hours as Medical needed for Branch nausea benzonatate 2021-05 Yes [id number] 200mg Take 1 Univers 200 mg 2-15 capsule by ity of capsule 00:00: mouth 3 [place] 00 (three) Medical times Branch daily as needed for Cough. albuterol 2021-05 Yes [id number] 2{puff} Inhale 2 Univers 90 2-15 Puffs ity of mcg/actuati 00:00: every 4 [place] as on inhaler 00 (four) Medical hours as Branch needed for Wheezing or Shortness of Breath. butalbital- 2021-05 Yes [id number] 1{tbl} Take 1 Univers acetaminoph 2-15 tablet by ity of en-caff 00:00: mouth [place] 50-325-40 00 every 4 Medical mg tablet (four) Branch hours as needed (headache) . ondansetron 2021-05 Yes [id number] 1-2 U nivers 4 mg tablet 2-15 tablets ity o f 00:00: every 8 [place] 00 hours as Medical needed for Branch nausea benzonatate 2021-05 Yes [id number] 200mg Take 1 Univers 200 mg 2-15 capsule by ity of capsule 00:00: mouth 3 00 (three) Medical times Branch daily as needed for Cough. albuterol 2021-05 Yes [id number] 2{puff} Inhale 2 Univers 90 2-15 Puffs ity of mcg/actuati 00:00: every 4 [place] as on inhaler 00 (four) Medical hours as Branch needed for Wheezing or Shortness of Breath. butalbital- 2021-05 Yes [id number] 1{tbl} Take 1 Univers acetaminoph 2-15 tablet by ity of en-caff 00:00: mouth [place] 50-325-40 00 every 4 Medical mg tablet (four) Branch hours as needed (headache) . ondansetron 2021-05 Yes [id number] 1-2 U nivers 4 mg tablet 2-15 tablets ity o f 00:00: every 8 [place] 00 hours as Medical needed for Branch nausea benzonatate 2021-05 Yes [id number] 200mg Take 1 Univers 200 mg 2-15 capsule by ity of capsule 00:00: mouth 3 [place] 00 (three) Medical times Branch daily as needed for Cough. albuterol 2021-05 Yes [id number] 2{puff} Inhale 2 Univers 90 2-15 Puffs ity of mcg/actuati 00:00: every 4 [place] on inhaler 00 (four) Medical hours as Branch needed for Wheezing or Shortness of Breath. butalbital- 2021-05 Yes [id number] 1{tbl} Take 1 Univers acetaminoph 2-15 tablet by ity of en-caff 00:00: mouth [place] 50-325-40 00 every 4 Medical mg tablet (four) Branch hours as needed (headache) . ondansetron 2021-05 Yes [id number] 1-2 U nivers 4 mg tablet 2-15 tablets ity o f 00:00: every 8 [place] 00 hours as Medical needed for Branch nausea benzonatate 2021-05 Yes [id number] 200mg Take 1 Univers 200 mg 2-15 capsule by ity of capsule 00:00: mouth 3 00 (three) Medical times Branch daily as needed for Cough. albuterol 2021-05 Yes [id number] 2{puff} Inhale 2 Univers 90 2-15 Puffs ity of mcg/actuati 00:00: every 4 [place] as on inhaler 00 (four) Medical hours as Branch needed for Wheezing or Shortness of Breath. butalbital- 2021-05 Yes [id number] 1{tbl} Take 1 Univers acetaminoph 2-15 tablet by ity of en-caff 00:00: mouth [place] 50-325-40 00 every 4 Medical mg tablet (four) Branch hours as needed (headache) . ondansetron 2021-05 Yes [id number] 1-2 U nivers 4 mg tablet 2-15 tablets ity o f 00:00: every 8 [place] 00 hours as Medical needed for Branch nausea benzonatate 2021-05 Yes [id number] 200mg Take 1 Univers 200 mg 2-15 capsule by ity of capsule 00:00: mouth 3 [place] 00 (three) Medical times Branch daily as needed for Cough. albuterol 2021-05 Yes [id number] 2{puff} Inhale 2 Univers 90 2-15 Puffs ity of mcg/actuati 00:00: every 4 [place] as on inhaler 00 (four) Medical hours as Branch needed for Wheezing or Shortness of Breath. butalbital- 2021-05 Yes [id number] 1{tbl} Take 1 Univers acetaminoph 2-15 tablet by ity of en-caff 00:00: mouth [place] 50-325-40 00 every 4 Medical mg tablet (four) Branch hours as needed (headache) . ondansetron 2021-05 Yes [id number] 1-2 U nivers 4 mg tablet 2-15 tablets ity o f 00:00: every 8 [place] 00 hours as Medical needed for Branch nausea benzonatate 2021-05 Yes [id number] 200mg Take 1 Univers 200 mg 2-15 capsule by ity of capsule 00:00: mouth 3 [place] 00 (three) Medical times Branch daily as needed for Cough. albuterol 2021-05 Yes [id number] 2{puff} Inhale 2 Univers 90 2-15 Puffs ity of mcg/actuati 00:00: every 4 [place] as on inhaler 00 (four) Medical hours as Branch needed for Wheezing or Shortness of Breath. butalbital- 2021-05 Yes [id number] 1{tbl} Take 1 Univers acetaminoph 2-15 tablet by ity of en-caff 00:00: mouth [place] 50-325-40 00 every 4 Medical mg tablet (four) Branch hours as needed (headache) . nirmatrelvi 2021-05- No [id number] 2{tbl} Take 2 Univers r-ritonavir 2-15 12-21 tablets by i ty of (PAXLOVID, 00:00: 05:59 mouth in [place] EUA,) 300 00 :00 the Medical mg (150 mg morning Branch x 2)-100 mg and 2 tablet tablets in the evening. Do all this for 5 days. nirmatrelvi 2021-05- No [id number] 2{tbl} Take 2 Univers r-ritonavir 2-15 12-21 tablets by i ty of (PAXLOVID, 00:00: 05:59 mouth in [place] EUA,) 300 00 :00 the Medical mg (150 mg morning Branch x 2)-100 mg and 2 tablet tablets in the evening. Do all this for 5 days. nirmatrelvi 2021-05- No [id number] 2{tbl} Take 2 Univers r-ritonavir 2-15 12-21 tablets by i ty of (PAXLOVID, 00:00: 05:59 mouth in [place] EUA,) 300 00 :00 the Medical mg (150 mg morning Branch x 2)-100 mg and 2 tablet tablets in the evening. Do all this for 5 days. nirmatrelvi 2021-05- No [id number] 2{tbl} Take 2 Univers r-ritonavir 2-15 12-21 [...] 04/22/22 at 1645, Routine amoxicillin 2021-05 Yes [id number] 1{tbl} Take 1 Univers -clavulanat 2- [id number] tablet by i ty of e 875-125 00:00: mouth [place] mg per 00 every 12 Medical tablet (twelve) Branch hours. ondansetron 2021-05 Yes [id number] 4mg Take 1 Univers 4 mg 2- [id number] tablet by ity of disintegrat 00:00: mouth [place] ing tablet 00 every 8 Medica l (eight) Branch hours as needed for Nausea and Vomiting (N/V). amoxicillin 2021-05 Yes [id number] 1{tbl} Take 1 Univers -clavulanat 2-01 [id number] tablet by i ty of e 875-125 00:00: mouth [place] mg per 00 every 12 Medical tablet (twelve) Branch hours. ondansetron 2021-05 Yes [id number] 4mg Take 1 Univers 4 mg 2- [id number] tablet by ity of disintegrat 00:00: mouth [place] ing tablet 00 every 8 Medica l (eight) Branch hours as needed for Nausea and Vomiting (N/V). amoxicillin 2021-05 Yes [id number] 1{tbl} Take 1 Univers -clavulanat 2-01 [id number] tablet by i ty of e 875-125 00:00: mouth [place] mg per 00 every 12 Medical tablet (twelve) Branch hours. ondansetron 2021-05 Yes [id number] 4mg Take 1 Univers 4 mg 2-01 [id number] tablet by ity of disintegrat 00:00: mouth [place] ing tablet 00 every 8 Medica l (eight) Branch hours as needed for Nausea and Vomiting (N/V). amoxicillin 2021-05 Yes [id number] 1{tbl} Take 1 Univers -clavulanat 2-01 [id number] tablet by i ty of e 875-125 00:00: mouth [place] mg per 00 every 12 Medical tablet (twelve) Branch hours. ondansetron 2021-05 Yes [id number] 4mg Take 1 Univers 4 mg 2-01 [id number] tablet by ity of disintegrat 00:00: mouth [place] ing tablet 00 every 8 Medica l (eight) Branch hours as needed for Nausea and Vomiting (N/V). amoxicillin 2021-05 Yes [id number] 1{tbl} Take 1 Univers -clavulanat 2-01 [id number] tablet by i ty of e 875-125 00:00: mouth [place] mg per 00 every 12 Medical tablet (twelve) Branch hours. ondansetron 2021-05 Yes [id number] 4mg Take 1 Univers 4 mg 2-01 [id number] tablet by ity of disintegrat 00:00: mouth [place] ing tablet 00 every 8 Medica l (eight) Branch hours as needed for Nausea and Vomiting (N/V). amoxicillin 2021-05 Yes [id number] 1{tbl} Take 1 Univers -clavulanat 2-01 [id number] tablet by i ty of e 875-125 00:00: mouth [place] mg per 00 every 12 Medical tablet (twelve) Branch hours. ondansetron 2021-05 Yes [id number] 4mg Take 1 Univers 4 mg 2-01 [id number] tablet by ity of disintegrat 00:00: mouth [place] ing tablet 00 every 8 Medica l (eight) Branch hours as needed for Nausea and Vomiting (N/V). amoxicillin 2021-05 Yes [id number] 1{tbl} Take 1 Univers -clavulanat 2-01 [id number] tablet by i ty of e 875-125 00:00: mouth [place] mg per 00 every 12 Medical tablet (twelve) Branch hours. ondansetron 2021-05 Yes [id number] 4mg Take 1 Univers 4 mg 2- [id number] tablet by ity of disintegrat 00:00: mouth [place] ing tablet 00 every 8 Medica l (eight) Branch hours as needed for Nausea and Vomiting (N/V). amoxicillin 2021-05 Yes [id number] 1{tbl} Take 1 Univers -clavulanat 2-01 [id number] tablet by i ty of e 875-125 00:00: mouth [place] mg per 00 every 12 Medical tablet (twelve) Branch hours. ondansetron 2021-05 Yes [id number] 4mg Take 1 Univers 4 mg 2- [id number] tablet by ity of disintegrat 00:00: mouth [place] ing tablet 00 every 8 Medica l (eight) Branch hours as needed for Nausea and Vomiting (N/V). amoxicillin 2021-05 Yes [id number] 1{tbl} Take 1 Univers -clavulanat 2-01 [id number] tablet by i ty of e 875-125 00:00: mouth [place] mg per 00 every 12 Medical tablet (twelve) Branch hours. ondansetron 2021-05 Yes [id number] 4mg Take 1 Univers 4 mg 2-01 [id number] tablet by ity of disintegrat 00:00: mouth [place] ing tablet 00 every 8 Medica l (eight) Branch hours as needed for Nausea and Vomiting (N/V). amoxicillin 2021-05 Yes [id number] 1{tbl} Take 1 Univers -clavulanat 2-01 [id number] tablet by i ty of e 875-125 00:00: mouth [place] mg per 00 every 12 Medical tablet (twelve) Branch hours. ondansetron 2021-05 Yes [id number] 4mg Take 1 Univers 4 mg 2-01 [id number] tablet by ity of disintegrat 00:00: mouth [place] ing tablet 00 every 8 Medica l (eight) Branch hours as needed for Nausea and Vomiting (N/V). zoster 2021-05- No [id number] .5mL 0.5 mL by Univers vaccine, 0-05 03-15 9104 Intramuscu ity of recombinant 00:00: 04:59 lar route [place] (SHINGRIX, 00 :00 once now Medic al PF,) for 1 Branch injection dose. And repeat in 2-6 months zoster 2021-05- No [id number] .5mL 0.5 mL by Univers vaccine, 0-05 03- 9104 Intramuscu ity of recombinant 00:00: 04:59 lar route [place] (SHINGRIX, 00 :00 once now Medic al PF,) for 1 Branch injection dose. And repeat in 2-6 months zoster 2021-05- No [id number] .5mL 0.5 mL by Univers vaccine, 0-05 [...] 1 mg tablet 19:28: at [place] [address] bedtime. Medical Branch traZODone Yes 50mg Take 50 mg Un matt 100 mg 9-27 by mouth ity of tablet 19:28: at [place] [address] bedtime. Medical Branch hydralAZINE Yes 25mg Take [...] 1 mg tablet 19:28: at [place] [address] bedtime. Medical Branch traZODone 2021-0 Yes 50mg Take 50 mg Un matt 100 mg 9-27 by mouth ity of tablet 19:28: at [place] [address] bedtime. Medical Branch hydralAZINE 2021-0 Yes 25mg [...] 1 mg tablet 19:28: at [place] [address] bedtime. Medical Branch traZODone 2021-0 Yes 50mg Take 50 mg Un matt 100 mg 9-27 by mouth ity of tablet 19:28: at [place] [address] bedtime. Medical Branch hydralAZINE 2021-0 Yes 25mg [...] 1 mg tablet 19:28: at [place] [address] bedtime. Medical Branch traZODone 2021-0 Yes 50mg Take 50 mg Un matt 100 mg 9-27 by mouth ity of tablet 19:28: at [place] [address] bedtime. Medical Branch hydralAZINE 2021-0 Yes 25mg [...] 1 mg tablet 19:28: at [place] [address] bedtime. Medical Branch traZODone 2-0 Yes 50mg Take 50 mg Un matt 100 mg 9-27 by mouth ity of tablet 19:28: at [place] [address] bedtime. Medical Branch hydralAZINE 2-0 Yes 25mg [...] 1 mg tablet 19:28: at [place] [address] bedtime. Medical Branch traZODone 2021-0 Yes 50mg Take 50 mg Un matt 100 mg 9-27 by mouth ity of tablet 19:28: at [place] [address] bedtime. Medical Branch hydralAZINE 2021-0 Yes 25mg [...] 1 mg tablet 19:28: at [place] [address] bedtime. Medical Branch traZODone 2021-0 Yes 50mg Take 50 mg Un matt 100 mg 9-27 by mouth ity of tablet 19:28: at [place] [address] bedtime. Medical Branch hydralAZINE 2021-0 Yes 25mg [...] 1 mg tablet 19:28: at [place] [address] bedtime. Medical Branch traZODone 2021-0 Yes 50mg Take 50 mg Un matt 100 mg 9-27 by mouth ity of tablet 19:28: at [place] [address] bedtime. Medical Branch hydralAZINE 2021-0 Yes 25mg [...] 1 mg tablet 19:28: at [place] [address] bedtime. Medical Branch traZODone 2021-0 Yes 50mg Take 50 mg Un matt 100 mg 9-27 by mouth ity of tablet 19:28: at [place] [address] bedtime. Medical Branch hydralAZINE 2021-0 Yes 25mg [...] 1 mg tablet 19:28: at [place] [address] bedtime. Medical Branch traZODone 2021-0 Yes 50mg Take 50 mg Un matt 100 mg 9-27 by mouth ity of tablet 19:28: at [place] [address] bedtime. Medical Branch hydralAZINE 2021-0 Yes 25mg [...] 100 mg 04 (two) Medical tablet times [place] daily. amLODIPine 2021-0 Yes 10mg Take 10 mg U nivers (NORVASC) 9-27 by mouth ity of 10 mg 19:28: daily. [place] tablet 04 Medical Branch clonazePAM 2021-0 Yes 1mg Take 1 mg Un matt (KLONOPIN) 9-27 by mouth ity o f 1 mg tablet 19:28: at [place] [address] bedtime. Medical Branch traZODone 2021-0 Yes 50mg Take 50 mg Un matt 100 mg 9-27 by mouth ity of tablet 19:28: at [place] [address] bedtime. Medical Branch hydralAZINE 2021-0 Yes 25mg [...] 100 mg 04 (two) Medical tablet times [place] daily. amLODIPine 2021-0 Yes 10mg Take 10 mg U nivers (NORVASC) 9-27 by mouth ity of 10 mg 19:28: daily. [place] tablet 04 Medical Branch clonazePAM 2021-0 Yes 1mg Take 1 mg Un matt (KLONOPIN) 9-27 by mouth ity o f 1 mg tablet 19:28: at [place] [address] bedtime. Medical Branch traZODone 2021-0 Yes 50mg Take 50 mg Un matt 100 mg 9-27 by mouth ity of tablet 19:28: at [place] [address] bedtime. Medical Branch hydralAZINE 2021-0 Yes 25mg [...] 2021-0 Yes 1mg Take 1 mg Un amtt (KLONOPIN) 9-27 by mouth ity o f 1 mg tablet 19:28: at [place] [address] bedtime. Medical Branch traZODone 2021-0 Yes 50mg Take 50 mg Un matt 100 mg 9-27 by mouth ity of tablet 19:28: at [place] [address] bedtime. Medical Branch hydralAZINE 2021-0 Yes 25mg [...] 100 mg 04 (two) Medical tablet times [place] daily. amLODIPine 2021-0 Yes 10mg Take 10 mg U nivers (NORVASC) 9-27 by mouth ity of 10 mg 19:28: daily. [place] tablet 04 Medical Branch clonazePAM 2021-0 Yes 1mg Take 1 mg Un matt (KLONOPIN) 9-27 by mouth ity o f 1 mg tablet 19:28: at [place] [address] bedtime. Medical Branch traZODone 2021-0 Yes 50mg Take 50 mg Un matt 100 mg 9-27 by mouth ity of tablet 19:28: at [place] [address] bedtime. Medical Branch hydralAZINE 2021-0 Yes 25mg [...] 1 mg tablet 19:28: at [place] [address] bedtime. Medical Branch traZODone 2-0 Yes 50mg Take 50 mg Un matt 100 mg 9-27 by mouth ity of tablet 19:28: at [place] [address] bedtime. Medical Branch hydralAZINE 2-0 Yes 25mg [...] 1 mg tablet 19:28: at [place] [address] bedtime. Medical Branch traZODone 2022-0 Yes 50mg Take 50 mg Un matt 100 mg 9-27 by mouth ity of tablet 19:28: at [place] [address] bedtime. Medical Branch hydralAZINE 2-0 Yes 25mg [...] 1 mg tablet 19:28: at [place] [address] bedtime. Medical Branch traZODone 2-0 Yes 50mg Take 50 mg Un matt 100 mg 9-27 by mouth ity of tablet 19:28: at [place] [address] bedtime. Medical Branch hydralAZINE 2021-0 Yes 25mg [...] 100 mg 04 (two) Medical tablet times [place] daily. amLODIPine 2-0 Yes 10mg Take 10 mg U nivers (NORVASC) 9-27 by mouth ity of 10 mg 19:28: daily. [place] tablet 04 Medical Branch clonazePAM 2-0 Yes 1mg Take 1 mg Un matt (KLONOPIN) 9-27 by mouth ity o f 1 mg tablet 19:28: at [place] [address] bedtime. Medical Branch traZODone 2-0 Yes 50mg Take 50 mg Un matt 100 mg 9-27 by mouth ity of tablet 19:28: at [place] 04 bedtime. Medical [place] cefpodoxime 2021-0 2021- No [id number] 200mg Take 1 Univers 200 mg 02-16 tablet by ity of tablet 00:00: 04:59 mouth in [place] 00 :00 the Medical morning Branch and 1 tablet in the evening. Do all this for 3 days. cefpodoxime 2021-0 2021- No [id number] 200mg Take 1 Univers 200 mg 02-16 [...] injection 2 00 :00 dose, On Medi profirio mg [facility] 02/15/22 at 0400, Routine hydroCHLORO 0 Yes 25mg 25 mg, [facility] ers thiazide 9-25 Oral, ity of (ESIDRIX) 14:00: DAILY, [place] capsule 25 00 First dose Med ical mg on [facility] 02/14/22 at 0900, Until Discontinu ed, Routine butalbital- Yes 1{tbl} 1 tablet, [facility] acetaminoph 24 Oral, ity of en-caff 18:46: Q6HPRN, [place] (ESGIC) 06 Starting Medical 50-325-40 on [facility] Branch mg tablet 1 02/13/22 at tablet 1346, Until Discontinu ed, Routine, headaches dicyclomine 0 Yes 10mg 10 mg, Univ ers (BENTYL) 9-24 Oral, QID, ity o f capsule 10 17:00: First dose [place] mg 00 on [facility] 02/13/22 at Branch 1200, Until Discontinu [...] :00 dose, On Medic al mg [facility] Branch 02/11/22 at 1645, Routine nitroglycer 0 Yes .4mg 0.4 mg, Uni vers in 02-11 Sublingual ity of (NITROSTAT) 21:31: , Q5MIN [place] sublingual 20 PRN, Medical tablet 0.4 Starting Branc h mg on [facility] 02/11/22 at 1631, Until Discontinu ed, [...] (MYCOLOG) 19:00: dose on [place] cream 00 [facility] 02/11/22 at Branch 1400, Until Discontinu ed, Routine busPIRone 0 Yes 30mg 30 mg, Univer s (BUSPAR) 02-11 Oral, BID, ity o f tablet 30 18:00: First dose [place] mg 00 on [facility] 02/11/22 at Branch 1300, Until Discontinu ed, Routine raltegravir 0 Yes 400mg 400 mg, Un matt (ISENTRESS) 02-11 Oral, BID, it y of tablet 400 18:00: First dose [place] mg 00 on [facility] Medical 02/11/22 at Branch 1300, Until Discontinu ed, JOE metoprolol 0 Yes 100mg 100 mg, Uni vers tartrate 02-11 Oral, BID, ity o f (LOPRESSOR) 18:00: First dose [place] tablet 100 00 on [facility] Medical mg 02/11/22 at Branch 1300, Until Discontinu ed, Routine lisinopriL 0 Yes 40mg 40 mg, Unive rs (PRINIVIL,Z 02-11 Oral, BID, it y of ESTRIL) 18:00: First dose [place] tablet 40 00 on [facility] Medical mg 02/11/22 at Branch 1300, Until Discontinu ed, Routine emtricitabi 0 Yes 1{tbl} 1 tablet, [facility] ne-tenofovi 02-11 Oral, ity of r alafen 18:00: DAILY, [place] (DESCOVY) 00 First dose Medi porfirio tablet 1 on [facility] tablet 02/11/22 at 1300, Until Discontinu ed, Routine ipratropium 0 Yes .5mg 0.5 mg, Uni vers (ATROVENT) 02-11 Inhalation ity of 0.02 % 17:57: , QIDPRN, [place] nebulizer 10 Starting Medica l solution on [facility] Branch 0.5 mg 02/11/22 at 1257, Until Discontinu ed, Routine, Wheezing, Shortness of Breath amLODIPine 0 Yes 10mg 10 mg, Unive rs (NORVASC) 02-11 Oral, ity of tablet 10 17:30: DAILY, [place] mg 00 First dose Medical (after [place] last modificati on) on [facility] 02/11/22 at 1230, Until Discontinu ed, Routine hydrALAZINE 2021- No 25mg 25 mg, Uni vers (APRESOLINE 02-11 Oral, ity of ) tablet 25 17:30: 12:54 DAILY, [place] mg 00 :55 First dose Medical (after [place] last modificati on) on [facility] 02/11/22 at 1230, Until Discontinu ed, [...] 02-11 Oral, ity of (TYLENOL 14:06: 17:37 [facility], [place] #3) 300-30 19 :24 Starting Medic al mg tablet 1 on [place] Branch tablet 02/11/22 at 0906, Until Tue02/12/22 at 1237, Routine, Pain (scale 4-6) sennosides- 0 Yes 1{tbl} 1 tablet, Univers docusate 02-11 Oral, ity of sodium 14:06: QDAILYPRN, [place] (SENOKOT-S) 09 Starting Medi porfirio 8.6-50 mg on [facility] Branch per tablet 02/11/22 at 1 tablet 0906, Until Discontinu ed, Routine, Constipati on ondansetron 0 Yes 4mg 4 mg, Slow Univers (ZOFRAN 02-11 IV Push, ity of (PF)) 14:05: [place] injection 4 59 Starting Medi porfirio mg on [place] Branch 02/11/22 at 0905, Until Discontinu ed, Routine, Nausea and Vomiting (N/V) acetaminoph 2021-0 Yes 650mg 650 mg, Un matt en 02-11 Oral, ity of (TYLENOL) 14:04: [place], [place] tablet 650 37 Starting Medic al [...] 25 mg 09:10: daily. [facility] Branch amLODIPine Yes 10mg Take 10 mg U nivers (NORVASC) 02-11 by mouth ity of 10 mg 09:10: daily. [facility] Branch piperacilli 2021- No 3.375g 3.375 g, [...] of therapy: 72 hours iopamidol 2021- No [id number] 60mL 60 mL, Univers (ISOVUE 02-11 Intravenou [...] 02/11/22 at 0015, JOE emtricitabi 0 Yes [id number] Take one Univers ne-tenofovi 9-12 po daily ity of r alafen 00:00: [place] (DESCOVY) 00 Medical tablet Branch emtricitabi Yes [id number] Take one Univers ne-tenofovi 9-12 po daily ity of r alafen 00:00: [place] (DESCOVY) 00 Medical tablet Branch emtricitabi Yes [id number] Take one Univers ne-tenofovi 9-12 po daily ity of r alafen 00:00: [place] (DESCOVY) 00 Medical tablet Branch emtricitabi Yes [id number] Take one Univers ne-tenofovi 9-12 po daily ity of r alafen 00:00: [place] (DESCOVY) 00 Medical tablet Branch emtricitabi Yes [id number] Take one Univers ne-tenofovi 9-12 po daily ity of r alafen 00:00: [place] (DESCOVY) 00 Medical tablet Branch emtricitabi Yes [id number] Take one Univers ne-tenofovi 9-12 po daily ity of r alafen 00:00: [place] (DESCOVY) 00 Medical tablet Branch emtricitabi Yes [id number] Take one Univers ne-tenofovi 9-12 po daily ity of r alafen 00:00: [place] (DESCOVY) 00 Medical [facility] Yes [id number] Take one Univers ne-tenofovi 9-12 po daily ity of r alafen 00:00: [place] (DESCOVY) 00 Medical tablet Branch emtricita Yes [id number] Take one Univers ne-tenofovi 9-12 po daily ity of r alafen 00:00: [place] (DESCOVY) 00 Medical tablet Branch emtricita Yes [id number] Take one Univers ne-tenofovi 9-12 po daily ity of r alafen 00:00: [place] (DESCOVY) 00 Medical tablet Branch emtricita Yes [id number] Take one Univers ne-tenofovi 9-12 po daily ity of r alafen 00:00: [place] (DESCOVY) 00 Medical tablet Branch [facility] [id number] Take one Univers ne-tenofovi 9-12 po daily ity of r alafen 00:00: [place] (DESCOVY) 00 Medical tablet [facility] [id number] Take one Univers ne-tenofovi 9-12 po daily ity of r alafen 00:00: [place] (DESCOVY) 00 Medical tablet Branch emtricita Yes [id number] Take one Univers ne-tenofovi 9-12 po daily ity of r alafen 00:00: [place] (DESCOVY) 00 Medical tablet Branch emtricita Yes [id number] Take one Univers ne-tenofovi 9-12 po daily ity of r alafen 00:00: [place] (DESCOVY) 00 Medical tablet Branch emtricita Yes [id number] Take one Univers ne-tenofovi 9-12 po daily ity of r alafen 00:00: [place] (DESCOVY) 00 Medical tablet Branch emtricita Yes [id number] Take one Univers ne-tenofovi 9-12 po daily ity of r alafen 00:00: [place] (DESCOVY) 00 Medical tablet Branch emtricitabi 0 2022- No [id number] Take one Univers ne-tenofovi 9-12 04-04 po daily ity of r alafen 00:00: 00:00 [place] (DESCOVY) 00 :00 Medical tablet Branch emtricitabi 2021-0 3- No [id number] Take one Univers ne-tenofovi 02-01 po daily ity of r alafen 00:00: 00:00 [place] (DESCOVY) 00 :00 Medical tablet Branch naproxen 2021-0 Yes [id number] 500mg Take 1 U nivers (NAPROSYN) 7-24 tablet by ity of 500 mg 00:00: mouth in [place] tablet 00 the Medical morning Branch and 1 tablet in the evening. Take with meals. methocarbam 2021-0 Yes [id number] 500mg Take 1 Univers oL 500 mg 7-24 tablet by ity o f tablet 00:00: mouth 4 [place] ([facility]) Medical times [place] daily. naproxen 2021-0 Yes [id number] 500mg Take 1 U nivers (NAPROSYN) 7-24 tablet by ity of 500 mg 00:00: mouth in [place] tablet 00 the Medical morning Branch and 1 tablet in the evening. Take with meals. methocarbam 2021-0 Yes [id number] 500mg Take 1 Univers oL 500 mg 7-24 tablet by ity o f tablet 00:00: mouth 4 ([facility]) Medical times [place] daily. naproxen 2021-0 Yes [id number] 500mg Take 1 U nivers (NAPROSYN) 7-24 tablet by ity of 500 mg 00:00: mouth in [place] tablet 00 the Medical morning Branch and 1 tablet in the evening. Take with meals. methocarbam 2021-0 Yes [id number] 500mg Take 1 Univers oL 500 mg 7-24 tablet by ity o f tablet 00:00: mouth 4 [place] ([facility]) Medical times [place] daily. naproxen 2021-0 2- No [id number] 500mg Take 1 Univers (NAPROSYN) 7-24 10-14 tablet by ity of 500 mg 00:00: 00:00 mouth in [place] tablet 00 :00 the Medical morning Branch and 1 tablet in the evening. Take with meals. methocarbam 2021-0 2- No [id number] 500mg Take 1 Univers oL 500 mg 7-24 10-14 tablet by ity of tablet 00:00: 00:00 mouth 4 [place] 00 :00 (four) Medical times Branch daily. naproxen 2021- No [id number] 500mg Take 1 Univers (NAPROSYN) 12-13- tablet by ity of 500 mg 00:00: 00:00 mouth in [place] tablet 00 :00 the Medical morning Branch and 1 tablet in the evening. Take with meals. methocarbam 2021- No [id number] 500mg Take 1 Univers oL 500 mg [...] ity of tablet 09:11: 00:00 mouth [place] 57 :00 daily. Medical Branch apixaban No 5mg Take 5 mg Uni vers (ELIQUIS) 5 11-20 by mouth 2 i ty of mg tablet 09:11: 00:00 (two) [place] 35 :00 times Medical daily. Branch traZODONE 2021- No Take by [facility] ers (DESYREL) 11-20 mouth at ity o f 10 mg/mL 09:10: 00:00 [place]time. [place] oral 28 :00 Medical suspension Branch hydralAZINE Yes 25mg Take 25 mg Univers (APRESOLINE 11-20 by mouth ity of ) 25 mg 08:47: daily. [place] tablet 47 Medical Branch cephALEXin 2021- No [id number] 500mg Take 1 Univers (KEFLEX) 10-24 capsule [...] Indication s: acute pain buPROPion 0 Yes [id number] 150mg Take 1 U nivers XL 4-12 tablet by ity of (WELLBUTRIN 00:00: mouth [place] XL) 150 mg 00 daily. Medical 24 hr Branch tablet busPIRone 2021-0 Yes [id number] 30mg Take 1 Un matt 30 mg 4-12 tablet by ity of tablet 00:00: mouth 2 [place] 00 (two) Medical times Branch daily. SERTraline 2021-0 Yes [id number] 200mg Take 2 Univers 100 mg 4-12 tablets by ity of tablet 00:00: mouth [place] 00 daily. Medical Branch buPROPion Yes [id number] 150mg Take 1 U nivers XL 4-12 tablet by ity of (WELLBUTRIN 00:00: mouth [place] XL) 150 mg 00 daily. Medical 24 hr Branch tablet busPIRone 0 Yes [id number] 30mg Take 1 Un matt 30 mg 4-12 tablet by ity of tablet 00:00: mouth 2 [place] 00 (two) Medical times Branch daily. SERTraline 0 Yes [id number] 200mg Take 2 Univers 100 mg 4-12 tablets by ity of tablet 00:00: mouth [place] 00 daily. Medical Branch buPROPion 2021-0 Yes [id number] 150mg Take 1 U nivers XL 4-12 tablet by ity of (WELLBUTRIN 00:00: mouth [place] XL) 150 mg 00 daily. Medical 24 hr Branch tablet busPIRone 2021-0 Yes [id number] 30mg Take 1 Un matt 30 mg 4-12 tablet by ity of tablet 00:00: mouth 2 [place] 00 (two) Medical times Branch daily. SERTraline 2021-0 Yes [id number] 200mg Take 2 Univers 100 mg 4-12 tablets by ity of tablet 00:00: mouth [place] 00 daily. Medical Branch buPROPion 2021-0 Yes [id number] 150mg Take 1 U nivers XL 4-12 tablet by ity of (WELLBUTRIN 00:00: mouth [place] XL) 150 mg 00 daily. Medical 24 hr Branch tablet busPIRone 2021-0 Yes [id number] 30mg Take 1 Un matt 30 mg 4-12 tablet by ity of tablet 00:00: mouth 2 [place] 00 (two) Medical times Branch daily. SERTraline 2021-0 Yes [id number] 200mg Take 2 Univers 100 mg 4-12 tablets by ity of tablet 00:00: mouth [place] 00 daily. Medical Branch buPROPion 2021-0 Yes [id number] 150mg Take 1 U nivers XL 4-12 tablet by ity of (WELLBUTRIN 00:00: mouth [place] XL) 150 mg 00 daily. Medical 24 hr Branch tablet busPIRone 2021-0 Yes [id number] 30mg Take 1 Un matt 30 mg 4-12 tablet by ity of tablet 00:00: mouth 2 [place] 00 (two) Medical times Branch daily. SERTraline 2021-0 Yes [id number] 200mg Take 2 Univers 100 mg 4-12 tablets by ity of tablet 00:00: mouth [place] 00 daily. Medical Branch buPROPion 2021-0 Yes [id number] 150mg Take 1 U nivers XL 4-12 tablet by ity of (WELLBUTRIN 00:00: mouth [place] XL) 150 mg 00 daily. Medical 24 hr Branch tablet busPIRone 2021-0 Yes [id number] 30mg Take 1 Un matt 30 mg 4-12 tablet by ity of tablet 00:00: mouth 2 [place] 00 (two) Medical times Branch daily. SERTraline 2021-0 Yes [id number] 200mg Take 2 Univers 100 mg 4-12 tablets by ity of tablet 00:00: mouth [place] 00 daily. Medical Branch buPROPion 2021-0 Yes [id number] 150mg Take 1 U nivers XL 4-12 tablet by ity of (WELLBUTRIN 00:00: mouth [place] XL) 150 mg 00 daily. Medical 24 hr Branch tablet busPIRone 2021-0 Yes [id number] 30mg Take 1 Un matt 30 mg 4-12 tablet by ity of tablet 00:00: mouth 2 [place] 00 (two) Medical times Branch daily. SERTraline 2021-0 Yes [id number] 200mg Take 2 Univers 100 mg 4-12 tablets by ity of tablet 00:00: mouth [place] 00 daily. Medical Branch buPROPion 2021-0 Yes [id number] 150mg Take 1 U nivers XL 4-12 tablet by ity of (WELLBUTRIN 00:00: mouth [place] XL) 150 mg 00 daily. Medical 24 hr Branch tablet busPIRone 2021-0 Yes [id number] 30mg Take 1 Un matt 30 mg 4-12 tablet by ity of tablet 00:00: mouth 2 00 (two) Medical times Branch daily. SERTraline 2021-0 Yes [id number] 200mg Take 2 Univers 100 mg 4-12 tablets by ity of tablet 00:00: mouth [place] 00 daily. Medical Branch buPROPion 2021-0 Yes [id number] 150mg Take 1 U nivers XL 4-12 tablet by ity of (WELLBUTRIN 00:00: mouth [place] XL) 150 mg 00 daily. Medical 24 hr Branch tablet busPIRone 2021-0 Yes [id number] 30mg Take 1 Un matt 30 mg 4-12 tablet by ity of tablet 00:00: mouth 2 (two) Medical times Branch daily. SERTraline 2021-0 Yes [id number] 200mg Take 2 Univers 100 mg 4-12 tablets by ity of tablet 00:00: mouth [place] 00 daily. Medical Branch buPROPion 2021-0 Yes [id number] 150mg Take 1 U nivers XL 4-12 tablet by ity of (WELLBUTRIN 00:00: mouth [place] XL) 150 mg 00 daily. Medical 24 hr Branch tablet busPIRone 2021-0 Yes [id number] 30mg Take 1 Un matt 30 mg 4-12 tablet by ity of tablet 00:00: mouth 2 (two) Medical times Branch daily. SERTraline 2021-0 Yes [id number] 200mg Take 2 Univers 100 mg 4-12 tablets by ity of tablet 00:00: mouth [place] 00 daily. Medical Branch buPROPion 2021-0 Yes [id number] 150mg Take 1 U nivers XL 4-12 tablet by ity of (WELLBUTRIN 00:00: mouth [place] XL) 150 mg 00 daily. Medical 24 hr Branch tablet busPIRone 2021-0 Yes [id number] 30mg Take 1 Un matt 30 mg 4-12 tablet by ity of tablet 00:00: mouth 2 [place] 00 (two) Medical times Branch daily. SERTraline 2021-0 Yes [id number] 200mg Take 2 Univers 100 mg 4-12 tablets by ity of tablet 00:00: mouth [place] 00 daily. Medical Branch buPROPion 2021-0 Yes [id number] 150mg Take 1 U nivers XL 4-12 tablet by ity of (WELLBUTRIN 00:00: mouth [place] XL) 150 mg 00 daily. Medical 24 hr Branch tablet busPIRone 2021-0 Yes [id number] 30mg Take 1 Un matt 30 mg 4-12 tablet by ity of tablet 00:00: mouth 2 [place] 00 (two) Medical times Branch daily. SERTraline 0 Yes [id number] 200mg Take 2 Univers 100 mg 4-12 tablets by ity of tablet 00:00: mouth [place] 00 daily. Medical Branch buPROPion 0 Yes [id number] 150mg Take 1 U nivers XL 4-12 tablet by ity of (WELLBUTRIN 00:00: mouth [place] XL) 150 mg 00 daily. Medical 24 hr Branch tablet busPIRone 2021-0 Yes [id number] 30mg Take 1 Un matt 30 mg 4-12 tablet by ity of tablet 00:00: mouth 2 [place] 00 (two) Medical times Branch daily. SERTraline 2021-0 Yes [id number] 200mg Take 2 Univers 100 mg 4-12 tablets by ity of tablet 00:00: mouth [place] 00 daily. Medical Branch buPROPion 2021-0 Yes [id number] 150mg Take 1 U nivers XL 4-12 tablet by ity of (WELLBUTRIN 00:00: mouth [place] XL) 150 mg 00 daily. Medical 24 hr Branch tablet busPIRone 2021-0 Yes [id number] 30mg Take 1 Un matt 30 mg 4-12 tablet by ity of tablet 00:00: mouth 2 [place] 00 (two) Medical times Branch daily. SERTraline 2021-0 Yes [id number] 200mg Take 2 Univers 100 mg 4-12 tablets by ity of tablet 00:00: mouth [place] 00 daily. Medical Branch buPROPion 2021-0 Yes [id number] 150mg Take 1 U nivers XL 4-12 tablet by ity of (WELLBUTRIN 00:00: mouth [place] XL) 150 mg 00 daily. Medical 24 hr Branch tablet busPIRone 2022-0 Yes [id number] 30mg Take 1 Un matt 30 mg 4-12 tablet by ity of tablet 00:00: mouth 2 [place] 00 (two) Medical times Branch daily. SERTraline 2021-0 Yes [id number] 200mg Take 2 Univers 100 mg 4-12 tablets by ity of tablet 00:00: mouth [place] 00 daily. Medical Branch buPROPion 0 Yes [id number] 150mg Take 1 U nivers XL 4-12 tablet by ity of (WELLBUTRIN 00:00: mouth [place] XL) 150 mg 00 daily. Medical 24 hr Branch tablet busPIRone 2021-0 Yes [id number] 30mg Take 1 Un matt 30 mg 4-12 tablet by ity of tablet 00:00: mouth 2 [place] 00 (two) Medical times Branch daily. SERTraline 0 Yes [id number] 200mg Take 2 Univers 100 mg 4-12 tablets by ity of tablet 00:00: mouth [place] 00 daily. Medical Branch buPROPion 0 Yes [id number] 150mg Take 1 U nivers XL 4-12 tablet by ity of (WELLBUTRIN 00:00: mouth [place] XL) 150 mg 00 daily. Medical 24 hr Branch tablet busPIRone 0 Yes [id number] 30mg Take 1 Un matt 30 mg 4-12 tablet by ity of tablet 00:00: mouth 2 [place] 00 (two) Medical times Branch daily. SERTraline 0 Yes [id number] 200mg Take 2 Univers 100 mg 4-12 tablets by ity of tablet 00:00: mouth [place] 00 daily. Medical Branch buPROPion 0 Yes [id number] 150mg Take 1 U nivers XL 4-12 tablet by ity of (WELLBUTRIN 00:00: mouth [place] XL) 150 mg 00 daily. Medical 24 hr Branch tablet busPIRone 2021-0 Yes [id number] 30mg Take 1 Un matt 30 mg 4-12 tablet by ity of tablet 00:00: mouth 2 [place] 00 (two) Medical times Branch daily. SERTraline 2021-0 Yes [id number] 200mg Take 2 Univers 100 mg 4-12 tablets by ity of tablet 00:00: mouth [place] 00 daily. Medical Branch buPROPion 2021-0 Yes [id number] 150mg Take 1 U nivers XL 4-12 tablet by ity of (WELLBUTRIN 00:00: mouth [place] XL) 150 mg 00 daily. Medical 24 hr Branch tablet busPIRone 2021-0 Yes [id number] 30mg Take 1 Un matt 30 mg 4-12 tablet by ity of tablet 00:00: mouth 2 [place] 00 (two) Medical times Branch daily. SERTraline 2021-0 Yes [id number] 200mg Take 2 Univers 100 mg 4-12 tablets by ity of tablet 00:00: mouth [place] 00 daily. Medical Branch buPROPion 2021-0 Yes [id number] 150mg Take 1 U nivers XL 4-12 tablet by ity of (WELLBUTRIN 00:00: mouth [place] XL) 150 mg 00 daily. Medical 24 hr Branch tablet busPIRone 2021-0 Yes [id number] 30mg Take 1 Un matt 30 mg 4-12 tablet by ity of tablet 00:00: mouth 2 [place] 00 (two) Medical times Branch daily. SERTraline 2021-0 Yes [id number] 200mg Take 2 Univers 100 mg 4-12 tablets by ity of tablet 00:00: mouth [place] 00 daily. Medical Branch raltegravir 2021-0 Yes [id number] 400mg Take 1 Univers (ISENTRESS) 3-28 tablet by ity of 400 mg 00:00: mouth 2 [place] tablet 00 (two) Medical times Branch daily. raltegravir 2021-0 Yes [id number] 400mg Take 1 Univers (ISENTRESS) 3-28 tablet by ity of 400 mg 00:00: mouth 2 [place] tablet 00 (two) Medical times Branch daily. raltegravir 2021-0 Yes [id number] 400mg Take 1 Univers (ISENTRESS) 3-28 tablet by ity of 400 mg 00:00: mouth 2 [place] tablet 00 (two) Medical times Branch daily. raltegravir 202-0 Yes [id number] 400mg Take 1 Univers (ISENTRESS) 3-28 tablet by ity of 400 mg 00:00: mouth 2 [place] tablet 00 (two) Medical times Branch daily. raltegravir 2021-0 Yes [id number] 400mg Take 1 Univers (ISENTRESS) 3-28 tablet by ity of 400 mg 00:00: mouth 2 [place] tablet 00 (two) Medical times Branch daily. raltegravir 2022-0 Yes [id number] 400mg Take 1 Univers (ISENTRESS) 3-28 tablet by ity of 400 mg 00:00: mouth 2 [place] tablet 00 (two) Medical times Branch daily. raltegravir 2022-0 Yes [id number] 400mg Take 1 Univers (ISENTRESS) 3-28 tablet by ity of 400 mg 00:00: mouth 2 [place] tablet 00 (two) Medical times Branch daily. raltegravir 2-0 Yes [id number] 400mg Take 1 Univers (ISENTRESS) 3-28 tablet by ity of 400 mg 00:00: mouth 2 [place] tablet 00 (two) Medical times Branch daily. raltegravir 2-0 Yes [id number] 400mg Take 1 Univers (ISENTRESS) 3-28 tablet by ity of 400 mg 00:00: mouth 2 [place] tablet 00 (two) Medical times Branch daily. raltegravir 2-0 Yes [id number] 400mg Take 1 Univers (ISENTRESS) 3-28 tablet by ity of 400 mg 00:00: mouth 2 [place] tablet 00 (two) Medical times Branch daily. raltegravir 2-0 Yes [id number] 400mg Take 1 Univers (ISENTRESS) 3-28 tablet by ity of 400 mg 00:00: mouth 2 [place] tablet 00 (two) Medical times Branch daily. raltegravir 2-0 Yes [id number] 400mg Take 1 Univers (ISENTRESS) 3-28 tablet by ity of 400 mg 00:00: mouth 2 [place] tablet 00 (two) Medical times Branch daily. raltegravir 2022-0 Yes [id number] 400mg Take 1 Univers (ISENTRESS) 3-28 tablet by ity of 400 mg 00:00: mouth 2 [place] tablet 00 (two) Medical times Branch daily. raltegravir 2022-0 Yes [id number] 400mg Take 1 Univers (ISENTRESS) 3-28 tablet by ity of 400 mg 00:00: mouth 2 [place] tablet 00 (two) Medical times Branch daily. raltegravir 2022-0 Yes [id number] 400mg Take 1 Univers (ISENTRESS) 3-28 tablet by ity of 400 mg 00:00: mouth 2 [place] tablet 00 (two) Medical times Branch daily. raltegravir 2022-0 Yes [id number] 400mg Take 1 Univers (ISENTRESS) 3-28 tablet by ity of 400 mg 00:00: mouth 2 [place] tablet 00 (two) Medical times Branch daily. raltegravir 2021-0 Yes [id number] 400mg Take 1 Univers (ISENTRESS) 3-28 tablet by ity of 400 mg 00:00: mouth 2 [place] tablet 00 (two) Medical times Branch daily. raltegravir 2021-0 Yes [id number] 400mg Take 1 Univers (ISENTRESS) 3-28 tablet by ity of 400 mg 00:00: mouth 2 [place] tablet 00 (two) Medical times Branch daily. raltegravir 0 Yes [id number] 400mg Take 1 Univers (ISENTRESS) 3-28 tablet by ity of 400 mg 00:00: mouth 2 [place] tablet 00 (two) Medical times Branch daily. raltegravir 0 Yes [id number] 400mg Take 1 Univers (ISENTRESS) 3-28 tablet by ity of 400 mg 00:00: mouth 2 [place] tablet 00 (two) Medical times Branch daily. LORazepam 1 2021- No [id number] 1mg Take 1 Univers mg tablet 3-10 [...] times a tablet day. emtricitabi 2021- No [id number] Take one Univers ne-tenofovi 1-20 09-12 po daily ity of r alafen 00:00: 00:00 [place] (DESCOVY) 00 :00 Medical tablet Branch metoprolol 0 Yes [id number] Take 1 [place] tartrate 7-26 tablet Health (Lopressor) 00:00: (100 mg 100 MG 00 total) by tablet mouth 2 (two) times a day AND 0.5 tablets (50 mg total) every night. metoprolol Yes [id number] Take 1 [place] tartrate 7-26 tablet Health [...] (affected area in groin) hydrALAZINE Yes 50mg Q.[id number] Take 50 mg [facility] (APRESOLINE 7-19 [id number] mouth [address] ) 50 MG [...] area in groin) hydrALAZINE 0 Yes 50mg Q.[id number] Take 50 mg [facility] (APRESOLINE 7-[id number] mouth [facility] [address] ) 50 MG [...] (affected area in groin) hydrALAZINE Yes 50mg Q.[id number] Take 50 mg [facility] (APRESOLINE 7-19 [id number] mouth [facility] [address] ) 50 MG [...] area in groin) hydrALAZINE 2020-0 Yes 50mg Q.[id number] Take 50 mg [facility] (APRESOLINE 7-[id number] mouth 3 [address] ) 50 MG [...] area in groin) hydrALAZINE 0 Yes 50mg Q.[id number] Take 50 mg [facility] (APRESOLINE 7-19 [id number] mouth 3 [facility] ) 50 MG [...] (affected area in groin) hydrALAZINE Yes 50mg Q.[id number] Take 50 mg [facility] (APRESOLINE 7-19 [id number] mouth 3 [address] ) 50 MG [...] area in groin) hydrALAZINE 0 Yes 50mg Q.[id number] Take 50 mg [facility] (APRESOLINE 7-[id number] mouth [facility] ) 50 MG [...] (affected area in groin) hydrALAZINE Yes 50mg Q.[id number] Take 50 mg [facility] (APRESOLINE 7-[id number] mouth [facility] ) 50 MG 10:51: 3D (three) [facility] tablet 25 times a l day. busPIRone 0 Yes 20mg QD Take 20 mg [facility] (BUSPAR) 10 7-[address] [facility] tablet 10:51: nightly. [facility]osp osren 25 l acetaminoph 0 Yes 1000mg Q.5D [...] (affected area in groin) hydrALAZINE Yes 50mg Q.[id number] Take 50 mg [facility] (APRESOLINE 7-[id number] mouth [facility] [address] ) 50 MG [...] (affected area in groin) hydrALAZINE Yes 50mg Q.[id number] Take 50 mg [facility] (APRESOLINE 7-[id number] mouth 3 [facility] ) 50 MG [...] area in groin) hydrALAZINE 0 Yes 50mg Q.[id number] Take 50 mg [facility] (APRESOLINE 7-19 [id number] mouth 3 [address] ) 50 MG [...] Yes Q.5D Apply 1 [facility] (TEMOVATE) 7-[address] 0.05 % 10:51: n [facility] ointment 25 topically l 2 (two) times a day. (affected area in groin) hydrALAZINE 0 Yes 50mg Q.[id number] Take 50 mg [facility] (APRESOLINE 7-[id number] mouth 3 [address] ) 50 MG [...] (affected area in groin) hydrALAZINE Yes 50mg Q.[id number] Take 50 mg [facility] (APRESOLINE 7-[id number] mouth 3 [facility] ) 50 MG [...] area in groin) hydrALAZINE 0 Yes 50mg Q.[id number] Take 50 mg [facility] (APRESOLINE 7-[id number] mouth [facility] [address] ) 50 MG [...] area in groin) hydrALAZINE 0 Yes 50mg Q.[id number] Take 50 mg [facility] (APRESOLINE 7-[id number] mouth [address] ) 50 MG [...] (affected area in groin) hydrALAZINE Yes 50mg Q.[id number] Take 50 mg [facility] (APRESOLINE 7-19 [id number] mouth [address] ) 50 MG [...] area in groin) hydrALAZINE 0 Yes 50mg Q.[id number] Take 50 mg [facility] (APRESOLINE 7-19 [id number] by mouth 3 st ) 50 MG [...] area in groin) hydrALAZINE 2021-0 Yes 50mg Q.80626442 Take 50 mg [facility] (APRESOLINE 7-19 [id number] by mouth 3 st ) 50 MG [...] (affected area in groin) hydrALAZINE Yes 50mg Q.80797896 Take 50 mg [facility] (APRESOLINE 7-19 [id number] [address] mouth 3 st ) 50 MG [...] area in groin) hydrALAZINE 0 Yes 50mg Q.55655855 Take 50 mg [facility] (APRESOLINE 7-19 [id number] [address] mouth [address] ) 50 MG [...] area in groin) hydrALAZINE 0 Yes 50mg Q.[id number] Take 50 mg [facility] (APRESOLINE 7-19 [id number] [address] mouth 3 st ) 50 MG [...] (affected area in groin) hydrALAZINE Yes 50mg Q.[id number] Take 50 mg [facility] (APRESOLINE 7-19 [id number] by mouth 3 st ) 50 MG [...] (affected area in groin) hydrALAZINE Yes 50mg Q.[id number] Take 50 mg [facility] (APRESOLINE 7-19 [id number] [address] mouth 3 st ) 50 MG [...] area in groin) hydrALAZINE 0 Yes 50mg Q.[id number] Take 50 mg [facility] (APRESOLINE 7-19 [id number] mouth 3 st ) 50 MG [...] area in groin) hydrALAZINE 0 Yes 50mg Q.[id number] Take 50 mg [facility] (APRESOLINE 7-19 [id number] mouth [address] ) 50 MG [...] (affected area in groin) hydrALAZINE Yes 50mg Q.47645001 Take 50 mg [facility] (APRESOLINE 7-19 [id number] [address] mouth [address] ) 50 MG [...] (affected area in groin) hydrALAZINE Yes 50mg Q.[id number] Take 50 mg [facility] (APRESOLINE 7-19 [id number] mouth 3 [address] ) 50 MG [...] area in groin) hydrALAZINE 0 Yes 50mg Q.14206645 Take 50 mg [facility] (APRESOLINE 7-19 [id number] [address] mouth 3 st ) 50 MG [...] (affected area in groin) hydrALAZINE Yes 50mg Q.[id number] Take 50 mg [facility] (APRESOLINE 7-19 [id number] [address] mouth 3 [address] ) 50 MG [...] (affected area in groin) hydrALAZINE Yes 50mg Q.11476402 Take 50 mg [facility] (APRESOLINE 7-19 5177585164 [address] mouth 3 st ) 50 MG [...] area in groin) hydrALAZINE 0 Yes 50mg Q.16308121 Take 50 mg [facility] (APRESOLINE 7-19 [id number] by mouth 3 st ) 50 MG [...] (affected area in groin) hydrALAZINE Yes 50mg Q.[id number] Take 50 mg [facility] (APRESOLINE 7-19 [id number] [address] mouth [address] ) 50 MG [...] (affected area in groin) hydrALAZINE Yes 50mg Q.[id number] Take 50 mg [facility] (APRESOLINE 7-19 [address]3050[address]61 [address] mouth 3 st ) 50 MG [...] (affected area in groin) hydrALAZINE Yes 50mg Q.[id number] Take 50 mg [facility] (APRESOLINE 7-19 [id number] [address] mouth 3 st ) 50 MG [...] area in groin) hydrALAZINE 0 Yes 50mg Q.[id number] Take 50 mg [facility] (APRESOLINE 7-19 [id number] mouth 3 st ) 50 MG [...] Yes Q.5D Apply 1 [facility] j[facility] (TEMOVATE) 7-[address] 0.05 % 10:51: [facility] ointment 25 topically l 2 (two) times a day. (affected area in groin) hydrALAZINE 0 Yes 50mg Q.94991418 Take 50 mg [facility] (APRESOLINE 7-19 [id number] [address] mouth [address] ) 50 MG [...] area in groin) hydrALAZINE 0 Yes 50mg Q.[id number] Take 50 mg [facility] (APRESOLINE 7-19 [id number] [address] mouth 3 [address] ) 50 MG 10:51: 3D (three) [facility] tablet 25 times a l day. busPIRone 0 Yes 20mg QD Take 20 mg [facility] (BUSPAR) 10 7-[address] MG tablet 10:51: nightly. Hosp sorne 25 l acetaminoph 2021-0 Yes 1000mg Q.5D [...] area in groin) hydrALAZINE 0 Yes 50mg Q.13612656 Take 50 mg [facility] (APRESOLINE 7-19 [id number] [address] mouth [address] ) 50 MG [...] (affected area in groin) hydrALAZINE Yes 50mg Q.[id number] Take 50 mg [facility] (APRESOLINE 7-[id number] mouth [address] ) 50 MG [...] area in groin) hydrALAZINE 0 Yes 50mg Q.[id number] Take 50 mg [facility] (APRESOLINE 7-[id number] mouth 3 [address] ) 50 MG [...] area in groin) hydrALAZINE 0 Yes 50mg Q.[id number] Take 50 mg [facility] (APRESOLINE 7-[id number] mouth [address] ) 50 MG [...] (affected area in groin) hydrALAZINE Yes 50mg Q.[id number] Take 50 mg [facility] (APRESOLINE 7-19 [id number] [address] mouth 3 [address] ) 50 MG [...] area in groin) hydrALAZINE 0 Yes 50mg Q.[id number] Take 50 mg [facility] (APRESOLINE 7-19 [id number] mouth 3 [address] ) 50 MG [...] area in groin) hydrALAZINE 0 Yes 50mg Q.[id number] Take 50 mg [facility] (APRESOLINE 7-19 [id number] mouth 3 [address] ) 50 MG [...] (affected area in groin) hydrALAZINE Yes 50mg Q.[id number] Take 50 mg [facility] (APRESOLINE 7-19 [id number] [address] mouth [address] ) 50 MG [...] tablet 25 times a l day. nystatin-tr 2021-0 Yes [id number] Apply to [facility] iamcinolone 7-06 area(s) 3 ity of cream 00:00: (three) [place] 00 times Medical daily. [facility] nystatin-tr 2021-0 Yes [id number] Apply to [facility] iamcinolone 7-06 area(s) 3 ity of cream 00:00: (three) [place] 00 times Medical daily. Branch nystatin-tr 2021-0 Yes [id number] Apply to [facility] iamcinolone 7-06 area(s) 3 ity of cream 00:00: (three) [place] 00 times Medical daily. Branch nystatin-tr 2021-0 Yes [id number] Apply to [facility] iamcinolone 7-06 area(s) 3 ity of cream 00:00: (three) [place] 00 times Medical daily. Branch nystatin-tr 2021-0 Yes [id number] Apply to [facility] iamcinolone 7-06 area(s) 3 ity of cream 00:00: (three) [place] 00 times Medical daily. Branch nystatin-tr 2021-0 Yes [id number] Apply to [facility] iamcinolone 7-06 area(s) 3 ity of cream 00:00: (three) [place] 00 times Medical daily. Branch nystatin-tr 2021-0 Yes [id number] Apply to [facility] iamcinolone 7-06 area(s) 3 ity of cream 00:00: (three) [place] 00 times Medical daily. Branch nystatin-tr 2021-0 Yes [id number] Apply to [facility] iamcinolone 7-06 area(s) 3 ity of cream 00:00: (three) [place] 00 times Medical daily. Branch nystatin-tr 2021-0 Yes [id number] Apply to [facility] iamcinolone 7-06 area(s) 3 ity of cream 00:00: (three) [place] 00 times Medical daily. Branch nystatin-tr 2021-0 Yes [id number] Apply to [facility] iamcinolone 7-06 area(s) 3 ity of cream 00:00: (three) [place] 00 times Medical daily. Branch nystatin-tr 2021-0 Yes [id number] Apply to [facility] iamcinolone 7-06 area(s) 3 ity of cream 00:00: (three) [place] 00 times Medical daily. Branch nystatin-tr 2021-0 Yes [id number] Apply to [facility] iamcinolone 7-06 area(s) 3 ity of cream 00:00: (three) [place] 00 times Medical daily. Branch nystatin-tr 2021-0 Yes [id number] Apply to [facility] iamcinolone 7-06 area(s) 3 ity of cream 00:00: (three) [place] 00 times Medical daily. Branch nystatin-tr 2021-0 Yes [id number] Apply to [facility] iamcinolone 7-06 area(s) 3 ity of cream 00:00: (three) [place] 00 times Medical daily. Branch nystatin-tr 2021-0 Yes [id number] Apply to [facility] iamcinolone 7-06 area(s) 3 ity of cream 00:00: (three) [place] 00 times Medical daily. Branch nystatin-tr 2021-0 Yes [id number] Apply to [facility] iamcinolone 7-06 area(s) 3 ity of cream 00:00: (three) [place] 00 times Medical daily. Branch nystatin-tr 2021-0 Yes [id number] Apply to [facility] iamcinolone 7-06 area(s) 3 ity of cream 00:00: (three) [place] 00 times Medical daily. Branch nystatin-tr 2021-0 Yes [id number] Apply to [facility] iamcinolone 7-06 area(s) 3 ity of cream 00:00: (three) [place] 00 times Medical daily. Branch nystatin-tr 2021-0 Yes [id number] Apply to [facility] iamcinolone 7-06 area(s) 3 ity of cream 00:00: (three) [place] 00 times Medical daily. Branch nystatin-tr 2021-0 Yes [id number] Apply to [facility] iamcinolone 7-06 area(s) 3 ity of cream 00:00: (three) [place] 00 times Medical daily. Branch budesonide- 2020-0 2020- No 1{puff} QD Inhale 1 [facility] formoteroL 6-25 06-[address] (SYMBICORT) 14:37: 00:00 morning. [facility] 160-4.5 02 :00 l mcg/actuati on inhaler hydrALAZINE 0 Yes [id number] 50mg Q.[id number] Take 1 [facility] (Apresoline 6-11 [id number] tablet (50 Health ) 50 MG 00:00: 3D mg total) tablet 00 by mouth 3 (three) times a day. hydrALAZINE 0 Yes [id number] 50mg Q.[id number] Take 1 [facility] (Apresoline 6-11 [id number] tablet (50 Health ) 50 MG 00:00: [...] 00:00: ointment 00 nystatin 2020-0 2021- No [id number] Q.25D Take 5 mL [facility] (MYCOSTATIN 5-17 [...] ia 4-10 (Same as: l 14:00: Norvasc) [place] emtricitabi No Notes: Caesar lisa ne 200 MG / 4-10 (Same as: l tenofovir 14:00: Descovy) Herm ariel alafenamide 00 Non-formul 25 MG Oral nancy Tablet [Descovy] pantoprazol No Notes: [facility] lisa e 4-10 Tablet l 14:00: should not [place] 00 be chewed or crushed. (Same as: Protonix) Amiodarone No Notes: Memor ia 4-10 (Same as: l 14:00: Cordarone) [place] 00 Amlodipine No Notes: [facility] ia 4-10 (Same as: l 14:00: Norvasc) [place] emtricitabi No Notes: [facility] lisa ne 200 MG / 4-10 (Same as: l tenofovir 14:00: Descovy) Herm ariel alafenamide 00 Non-formul 25 MG Oral nancy Tablet [Descovy] Sertraline No Notes: Memor ia 4-10 (Same as: l 14:00: Zoloft) [facility] Sertraline No Notes: [facility] ia 4-10 (Same as: l 14:00: Zoloft) [place] pantoprazol No Notes: Caesar lisa e 4-10 Tablet l 14:00: should not [place] 00 be chewed or crushed. (Same as: Protonix) Amiodarone No Notes: Memor ia 4-10 (Same as: l 14:00: Cordarone) [place] Amlodipine No Notes: Mem[facility] ia 4-10 (Same [...] e 4-10 Tablet l 14:00: should not [place] 00 be chewed or crushed. (Same as: Protonix) Amiodarone No Notes: Mem[facility] ia 4-10 (Same as: l 14:00: Cordarone) [place] Amlodipine No Notes: [facility] ia 4-10 (Same [...] e 4-10 Tablet l 14:00: should not [place] 00 be chewed or crushed. (Same as: [...] e 4-10 Tablet l 14:00: should not [place] 00 be chewed or crushed. (Same as: Protonix) Amiodarone No Notes: Mem[facility] ia 4-10 (Same as: l 14:00: Cordarone) [place] Amlodipine No Notes: [facility] ia 4-10 (Same as: l 14:00: Norvasc) [place] emtricitabi No Notes: Caesar lisa ne 200 [...] e 4-10 Tablet l 14:00: should not [place] 00 be chewed or crushed. (Same as: Protonix) Amiodarone No Notes: [facility] ia 4-10 (Same as: l 14:00: Cordarone) Sucralfate No Notes: May M emoria 4-10 interfere l 02:00: w/enteral [place] feeds - Take 1 hr before or 2 hr after antacids, dairy pdt, meals & minerals - On empty stomach. For patients unable to swallow tablet, dissolve in 10mL - 30mL of water or juice and stir before giving. (Same As: Carafate) Saline No Notes: [facility] Flush 0.9% 4-10 (Same as: l 02:00: BD [place] Posiflush) Eliquis No Notes: [facility] 4-10 Same [...] 0.9% 4-10 (Same as: l 02:00: BD [place] Posiflush) Eliquis No Notes: [facility] 4-10 Same as: l 02:00: Eliquis [place] 00 Hydralazine No Notes: Caesar lisa Hydrochlori [...] 0.9% 4-10 (Same as: l 02:00: BD [place] Posiflush) Eliquis No Notes: [facility] 4-10 Same as: l 02:00: Eliquis [place] 00 Hydralazine No Notes: Caesar lisa Hydrochlori [...] 0.9% 4-10 (Same as: l 02:00: BD [place] Posiflush) Eliquis No Notes: [facility] 4-10 Same as: l 02:00: Eliquis [place] Hydralazine No Notes: Caesar lisa Hydrochlori 4-10 (Same as: l de 50 MG 02:00: Apresoline Her mitchell Oral Tablet 00 ) May interfere w/enteral feedings Take With Food Sucralfate No Notes: May M emoria 4-10 interfere l 02:00: w/enteral [place] 00 feeds - Take 1 hr before [...] M emoria 4-10 interfere l 02:00: w/enteral [place] 00 feeds - Take 1 hr before [...] not exceed l #3 00:12: 4gm/day of [place] acetaminop hen. (Same as: Tylenol with Codeine [...] not exceed l #3 00:12: 4gm/day of [place] acetaminop hen. (Same as: Tylenol with Codeine [...] tab, l Tablet 22:00: Route: [facility] form: TAB, BID, Dosing Weight 97.273, kg, Start date: 08/29/20 17:00:00 CDT, Duration: 30 day, Stop date: 09/28/20 9:00:00 CDT, 0 Buspirone No Notes: [facility] a 08-29 (Same As: l 22:00: BuSpar) Lisinopril 2021-0 No 40 mg, 1 Mem oria 4-09 tab, l 22:00: Route: PO, [place] 00 Drug form: TAB, BID, Dosing Weight 97.273, kg, Start date: 08/29/20 17:00:00 CDT, Duration: 30 day, Stop date: 09/28/20 9:00:00 CDT metoprolol 2021-0 No 100 mg, 1 Me moria tartrate 4-09 tab, l 22:00: Route: PO, [place] 00 Drug form: TAB, BID, Dosing Weight [...] oria 4-09 tab, l 22:00: Route: PO, [place] Drug form: TAB, BID, Dosing Weight 97.273, kg, Start date: 08/29/20 17:00:00 CDT, Duration: 30 day, Stop date: 09/28/20 9:00:00 CDT metoprolol 2021-0 No 100 mg, 1 Me moria tartrate 4-09 tab, l 22:00: Route: PO, [place] 00 Drug form: TAB, BID, Dosing Weight [...] oria 4-09 tab, l 22:00: Route: PO, [place] 00 Drug form: TAB, BID, Dosing Weight [...] oria 4-09 tab, l 22:00: Route: PO, [place] 00 Drug form: TAB, BID, Dosing Weight [...] tartrate 4-09 tab, l 22:00: Route: PO, [place] Drug form: TAB, BID, Dosing Weight 97.273, [...] Notes: [facility] 4-09 (Same l 17:07: as:MORPhin [place] 00 e Sulfate) Morphine No Notes: [facility] 4-09 (Same l 17:07: as:MORPhin [place] 00 e Sulfate) Morphine No Notes: [facility] 4-09 (Same l 17:07: as:MORPhin [place] 00 e Sulfate) Morphine No Notes: [facility] [...] 08-29 Drug form: l 15:40: INJ, ONCE, [place] 00 Stop date: 08/29/20 10:40:00 CDT pantoprazol [...] PO, l oral 15:27: Daily, # [place] enteric 00 30 tab, 0 coated Refill(s), [...] tab, 0 coated Refill(s), tablet [facility]: [id number], 162.56, cm, 08/29/20 5:30:00 CDT, [...] PO, l oral 15:27: Daily, # [place] enteric 00 30 tab, 0 coated Refill(s), [...] PO, l oral 15:26: Daily, # [place] enteric 00 30 tab, 0 coated Refill(s) [...] PO, l oral 15:26: Daily, # [place] enteric 00 30 tab, 0 coated Refill(s) tablet sucralfate 2020-0 Yes 1 gm = 1 Mem oria 1 g oral 4-09 tab, PO, l tablet 15:26: Q12H, # 28 [place]yl[place] nn 00 tab, 0 Refill(s), Pharmacy: [place] [id number], 162.56, cm, 08/29/20 5:30:00 CDT, Height, 97.273, [...] 0.9% 4-09 (Same as: l 15:25: BD [place] 00 Posiflush) Lorazepam No Notes: Memori a 4-09 (Same as: l 15:25: Ativan) [place] Saline No Notes: [facility] Flush 0.9% 4-09 (Same as: l 15:25: BD [place] 00 Posiflush) Saline No Notes: [facility] Flush 0.9% 4-09 (Same as: l 15:25: BD [place] 00 Posiflush) Lorazepam No Notes: [facility] a 4-09 (Same as: l 15:25: Ativan) Lorazepam No Notes: [facility] a 4-09 (Same as: l 15:25: Ativan) [place] 00 Saline No Notes: [facility] Flush 0.9% 4-09 (Same as: l 15:25: BD [place] 00 Posiflush) Lorazepam No Notes: [facility] a 4-09 (Same as: l 15:25: Ativan) Saline No Notes: [facility] Flush 0.9% 4-09 (Same as: l 15:25: BD [place] 00 Posiflush) Lorazepam No Notes: Memori a 4-09 (Same as: l 15:25: Ativan) Saline No Notes: [facility] Flush 0.9% 4-09 (Same as: l 15:25: BD [place] Posiflush) Lorazepam No Notes: [facility] a 4-09 (Same as: l 15:25: Ativan) Isuprel HCl No Route: IV, [facility] (ANES) 0.2 08-29 Drug form: l mg + 15:00: INJ, [place] 00 Dosing Weight 97.3, kg, Start date: 08/29/20 10:00:00 CDT, Stop date: 08/29/20 11:00:00 CDT Isuprel HCl No Route: IV, [facility] (ANES) 0.2 08-29 Drug form: l mg + 15:00: INJ, [place] 00 Dosing Weight 97.3, kg, Start date: 08/29/20 10:00:00 CDT, Stop date: 08/29/20 11:00:00 CDT Isuprel HCl No Route: IV, [facility] (ANES) 0.2 08-29 Drug form: l mg + 15:00: INJ, Dosing Weight 97.3, kg, Start date: 08/29/20 10:00:00 CDT, Stop date: 08/29/20 11:00:00 CDT Isuprel HCl 2020-0 No Route: IV, [facility] (ANES) 0.2 08-29 Drug form: l mg + 15:00: INJ, [place] Dosing Weight 97.3, kg, Start date: 08/29/20 10:00:00 CDT, Stop date: 08/29/20 11:00:00 CDT Isuprel HCl 2020-0 No Route: IV, [facility] (ANES) 0.2 08-29 Drug form: l mg + 15:00: INJ, [place] 00 Dosing Weight 97.3, kg, Start date: [...] 08-29 Drug form: l 14:49: INJ, ONCE, [place] 00 Stop date: 08/29/20 9:49:00 CDT heparin 2020-0 No Route: IV, Caesar lisa (ANES) 08-29 Drug form: l 14:49: INJ, ONCE, [place] 00 Stop date: 08/29/20 9:49:00 CDT heparin [...] 08-29 Drug form: l 14:49: INJ, ONCE, [place] 00 Stop date: 08/29/20 9:49:00 CDT propofol [...] 08-29 Route: PO, l 14:01: Drug form: [place] 00 TAB, ONCE, Dosing Weight 97.273, kg, [...] lisa 08-29 Route: l 14:01: IVP, PRN, [place] 00 Dosing Weight 97.273, kg, PRN Benzodiaze pine Reversal, Initial dose, Start date: 08/29/20 9:01:00 CDT, Duration: 30 day, Stop date: 09/28/20 9:00:00 CDT Naloxone 1-0 No 0.4 mg, Memori a 08-29 Route: l 14:01: IVP, [place] 00 Q2MIN, Dosing Weight 97.273, kg, PRN Narcotic Reversal, Start date: 08/29/20 9:01:00 CDT, Duration: 8 doses or times, Stop date: Limited # of times Ondansetron 1-0 No 4 mg, Memor ia 08-29 Route: l 14:01: IVP, ONCE, [place] 00 Dosing Weight 97.273, kg, PRN Nausea & Vomiting, Start date: 08/29/20 9:01:00 CDT Labetalol 2021-0 No 10 mg, Memori a 08-29 Route: l 14:01: IVP, [place] 00 Q5Min, Dosing Weight 97.273, kg, PRN [...] lisa 08-29 Route: l 14:01: IVP, PRN, [place] 00 Dosing Weight 97.273, kg, PRN Benzodiaze [...] ia 08-29 Route: l 14:01: IVP, ONCE, [place] 00 Dosing Weight 97.273, kg, PRN Nausea & Vomiting, Start date: 08/29/20 9:01:00 CDT Labetalol 2021-0 No 10 mg, Memori a 08-29 Route: l 14:01: IVP, [place] 00 Q5Min, Dosing Weight 97.273, kg, PRN [...] lisa 08-29 Route: l 14:01: IVP, PRN, [place] 00 Dosing Weight 97.273, kg, PRN Benzodiaze pine Reversal, Initial dose, Start date: 08/29/20 9:01:00 CDT, Duration: 30 day, Stop date: 09/28/20 9:00:00 CDT Naloxone 1-0 No 0.4 mg, Memori a 08-29 Route: l 14:01: IVP, [place] 00 Q2MIN, Dosing Weight 97.273, kg, PRN [...] 08-29 Route: PO, l 14:01: Drug form: [place] 00 TAB, ONCE, Dosing Weight 97.273, kg, [...] 08-29 Route: PO, l 14:01: Drug form: [place] 00 TAB, ONCE, Dosing Weight 97.273, kg, [...] oria ne 08-29 Route: l 14:01: IVP, [place] 00 Q5Min, Dosing Weight 97.273, kg, PRN Pain Score 7-10, Start date: 08/29/20 9:01:00 CDT, Duration: 4 doses or times, Stop date: Limited # of times Flumazenil 2020-0 No 0.2 mg, Caesar lisa 08-29 Route: l 14:01: IVP, PRN, [place] 00 Dosing Weight 97.273, kg, PRN Benzodiaze [...] lisa 08-29 Route: l 14:01: IVP, PRN, [place] 00 Dosing Weight 97.273, kg, PRN Benzodiaze pine Reversal, Initial dose, Start date: 08/29/20 9:01:00 CDT, Duration: 30 day, Stop date: 09/28/20 9:00:00 CDT Ondansetron 1-0 No 4 mg, Memor ia 08-29 Route: l 14:01: IVP, ONCE, [place] 00 Dosing Weight 97.273, kg, PRN Nausea [...] ia 08-29 Route: l 14:01: IVP, ONCE, [place] 00 Dosing Weight 97.273, kg, PRN Nausea [...] 08-29 Route: PO, l 14:01: Drug form: [place] 00 TAB, ONCE, Dosing Weight 97.273, kg, [...] a 08-29 Route: l 14:01: IVP, [place] 00 Q2MIN, Dosing Weight 97.273, kg, PRN [...] 08-29 Route: PO, l 14:01: Drug form: [place] 00 TAB, ONCE, Dosing Weight 97.273, kg, [...] oria ne 08-29 Route: l 14:01: IVP, [place] 00 Q5Min, Dosing Weight 97.273, kg, PRN [...] a 08-29 Route: l 14:01: IVP, [place] 00 Q2MIN, Dosing Weight 97.273, kg, PRN [...] Drug form: l 10 13:15: INJ, Start [place] microgram date: 08/29/20 8:15:00 CDT, Stop date: 08/29/20 9:15:00 CDT norepinephr 2020-0 No Route: IV, Memoria ine (ANES) 08-29 Drug form: l 10 13:15: INJ, Start [place] microgram date: 08/29/20 8:15:00 CDT, Stop date: [...] Drug form: l 10 13:15: INJ, Start [place] microgram 00 date: 08/29/20 8:15:00 CDT, Stop date: 08/29/20 9:15:00 CDT norepinephr 2020-0 No Route: IV, Memoria ine (ANES) 4-09 Drug form: l 10 13:15: INJ, Start [place] microgram 00 date: 08/29/20 8:15:00 CDT, Stop date: 08/29/20 9:15:00 CDT Sodium 2020-0 No Route: IV, Memor ia Chloride 4-09 Total l 0.9% IV 12:30: Volume: Marty (ANES) 1000 00 1,000, mL Start date: 08/29/20 7:30:00 CDT, Stop date: 08/29/20 8:30:00 CDT Sodium 2020-0 No Route: IV, Memor ia Chloride 4-09 Total l 0.9% IV 12:30: Volume: [place] (ANES) 1000 00 1,000, mL Start date: [...] 4-09 Total l 0.9% IV 12:30: Volume: [place] (ANES) 1000 00 1,000, mL Start date: [...] l Hydrochlori 11:42: Q24H, # 30 [place] de 150 MG 00 tab, 0 Extended Refill(s) Release Tablet 24 HR Yes 150 mg = 1 Memori a Bupropion 4-09 tab, PO, l Hydrochlori 11:42: Q24H, # 30 [place] de 150 MG 00 tab, 0 Extended Refill(s) Release Tablet apixaban 2020-0 Yes 5 mg, PO, Me moria MG Oral 4- Q12H, tab, l Tablet 11:41: 0 [place] [Eliquis] 00 Refill(s), For Atrial Fibrilatio n apixaban 2020-0 Yes 5 mg, PO, Me moria MG Oral 4- Q12H, tab, l Tablet 11:41: 0 [place] [Eliquis] 00 Refill(s), For Atrial Fibrilatio n apixaban 2020-0 Yes 5 mg, PO, Me moria MG Oral 4- Q12H, tab, l Tablet 11:41: 0 [place] [Eliquis] 00 Refill(s), For Atrial Fibrilatio n apixaban 5 2020-0 Yes 5 mg, PO, Me moria MG Oral 4- Q12H, tab, l Tablet 11:41: 0 [place] [Eliquis] 00 Refill(s), For Atrial Fibrilatio n [...] 08-29 Q12H, tab, l Tablet 11:41: 0 [place] [Eliquis] 00 Refill(s), For Atrial Fibrilatio n AMIODarone 2020-0 Yes 200 mg = 1 M emoria 200 mg oral -09 tab, PO, l tablet 11:38: Daily, # [place] 00 90 tab, 3 Refill(s) AMIODarone 2020-0 [...] tab, PO, l tablet 11:38: Daily, # [place] 00 90 tab, 3 Refill(s) AMIODarone 2020-0 Yes 200 mg = 1 M emoria 200 mg oral 4-09 tab, PO, l tablet 11:38: Daily, # [place] 00 90 tab, 3 Refill(s) AMIODarone 2020-0 Yes 200 mg = 1 M emoria 200 mg oral 4-09 tab, PO, l tablet 11:38: Daily, # [place] 00 90 tab, 3 Refill(s) normal 2020-0 [...] Filled Immunization Date Status Comments [facility] e Immunization Name Name SARS-COV-2 COVID-19 [...] [place] 65[place] PFIZER COVID-19 2020-07-23 Completed [facility] VACC[facility]:00 [facility] PFIZER COVID-19 2020-07-23 Completed [facility] VACCINATION 00:00:00 [facility] PFIZER COVID-19 2020-07-23 Completed [facility] VACCINATION 00:00:00 [facility] PFIZER COVID-19 2020-07-23 Completed [facility] VACCINATION 00:00:00 [facility] PFIZER COVID-19 2020-07-23 Completed [facility] VACCINATION 00:00:00 [facility] PFIZER COVID-19 2020-07-23 Completed [facility] VACCINATION 00:00:00 [facility] PFIZER COVID-19 2020-07-23 Completed [facility] VACCINATION 00:00:00 [facility] PFIZER COVID-19 2020-07-23 Completed [facility] VACCINATION 00:00:00 [facility] PFIZER COVID-19 2020-07-23 Completed [facility] VACCINATION 00:00:00 [facility] PFIZER COVID-19 2020-07-23 Completed [facility] VACCINATION 00:00:00 [facility] PFIZER COVID-19 2020-07-23 Completed [facility] VACCINATION 00:00:00 [facility] PFIZER COVID-19 2020-07-23 Completed [facility] VACCINATION 00:00:00 [facility] PFIZER COVID-19 2020-07-23 Completed [facility] VACCINATION 00:00:00 [facility] PFIZER COVID-19 2020-07-23 Completed [facility] VACCINATION 00:00:00 [facility] PFIZER COVID-19 2020-07-23 Completed [facility] VACCINATION 00:00:00 [facility] PFIZER COVID-19 2020-07-23 Completed [facility] VACCINATION 00:00:00 [facility] PFIZER COVID-19 2020-07-23 Completed [facility] VACCINATION 00:00:00 [facility] PFIZER COVID-19 2020-07-23 Completed [facility] VACCINATION 00:00:00 [facility] PFIZER COVID-19 2020-07-23 Completed [facility] VACCINATION 00:00:00 [facility] PFIZER COVID-19 2020-07-23 Completed [facility] VACCINATION 00:00:00 [facility] PFIZER COVID-19 2020-07-23 Completed [facility] VACCINATION 00:00:00 [facility] PFIZER COVID-19 2020-07-23 Completed [facility] VACCINATION 00:00:00 [facility] PFIZER COVID-19 2020-07-23 Completed [facility] VACCINATION 00:00:00 [facility] PFIZER COVID-19 2020-07-23 Completed [facility] VACCINATION 00:00:00 [facility] PFIZER COVID-19 2020-07-23 Completed [facility] VACCINATION 00:00:00 [facility] PFIZER COVID-19 2020-07-23 Completed [facility] VACCINATION 00:00:00 [facility] PFIZER COVID-19 2020-07-23 Completed [facility] VACCINATION 00:00:00 [facility] PFIZER COVID-19 2020-07-23 Completed [facility] VACCINATION 00:00:00 [facility] PFIZER COVID-19 2020-07-23 Completed [facility] VACCINATION 00:00:00 [facility] PFIZER COVID-19 2020-07-23 Completed [facility] VACCINATION 00:00:00 [facility] PFIZER COVID-19 2020-07-23 Completed [facility] VACCINATION 00:00:00 [facility] PFIZER COVID-19 2020-07-23 Completed [facility] VACCINATION 00:00:00 [facility] PFIZER COVID-19 2020-07-23 Completed [facility] VACCINATION 00:00:00 [facility] PFIZER COVID-19 2020-07-23 Completed [facility] VACCINATION 00:00:00 [facility] PFIZER COVID-19 2020-07-23 Completed [facility] VACCINATION 00:00:00 [facility] PFIZER COVID-19 2020-07-23 Completed [facility] VACCINATION 00:00:00 [facility] PFIZER COVID-19 2020-07-23 Completed [facility] VACCINATION 00:00:00 [facility] PFIZER COVID-19 2020-07-23 Completed [facility] VACCINATION 00:00:00 [facility] PFIZER COVID-19 2020-07-23 Completed [facility] VACCINATION 00:00:00 [facility] PFIZER COVID-19 2020-07-23 Completed [facility] VACCINATION 00:00:00 [facility] PFIZER COVID-19 2020-07-23 Completed [facility] VACCINATION 00:00:00 [facility] PFIZER COVID-19 2020-07-23 Completed [facility] VACCINATION 00:00:00 [facility] PFIZER COVID-19 2020-07-23 Completed [facility] VACCINATION 00:00:00 [facility] PFIZER COVID-19 2020-07-23 Completed [facility] VACCINATION 00:00:00 [facility] SARS-COV-2 COVID-19 2020-07-23 Completed Unive rsity [...] [facility] COVID-19 2020-07-23 Completed [facility] VACCINATION 00:00:00 [facility] PFIZER COVID-19 2020-07-02 Completed [facility] VACCINATION 00:00:00 [facility] PFIZER COVID-19 2020-07-02 Completed [facility] VACCINATION 00:00:00 [facility] PFIZER COVID-19 2020-07-02 Completed [facility] VACCINATION 00:00:00 [facility] PFIZER COVID-19 2020-07-02 Completed [facility] VACCINATION 00:00:00 [facility] PFIZER COVID-19 2020-07-02 Completed [facility] VACCINATION 00:00:00 [facility] PFIZER COVID-19 2020-07-02 Completed [facility] VACCINATION 00:00:00 [facility] PFIZER COVID-19 2020-07-02 Completed [facility] VACCINATION 00:00:00 [facility] PFIZER COVID-19 2020-07-02 Completed [facility] VACCINATION 00:00:00 [facility] PFIZER COVID-19 2020-07-02 Completed [facility] VACCINATION 00:00:00 [facility] PFIZER COVID-19 2020-07-02 Completed [facility] VACCINATION 00:00:00 [facility] PFIZER COVID-19 2020-07-02 Completed [facility] VACCINATION 00:00:00 [facility] PFIZER COVID-19 2020-07-02 Completed [facility] VACCINATION 00:00:00 [facility] PFIZER COVID-19 2020-07-02 Completed [facility] VACCINATION 00:00:00 [facility] PFIZER COVID-19 2020-07-02 Completed [facility] VACCINATION 00:00:00 [facility] PEG COVID-19 2020-07-02 Completed [facility] VACCINATION 00:00:00 [facility] PFIZER COVID-19 2020-07-02 Completed [facility] VACCINATION 00:00:00 [facility] PFIZER COVID-19 2020-07-02 Completed [facility] VACCINATION 00:00:00 [facility] PFIZER COVID-19 2020-07-02 Completed [facility] VACCINATION 00:00:00 [facility] PFIZER COVID-19 2020-07-02 Completed [facility] VACCINATION 00:00:00 [facility] PFIZER COVID-19 2020-07-02 Completed [facility] VACCINATION 00:00:00 [facility] PFIZER COVID-19 2020-07-02 Completed [facility] VACCINATION 00:00:00 [facility] PFIZER COVID-19 2020-07-02 Completed [facility] VACCINATION 00:00:00 [facility] PFIZER COVID-19 2020-07-02 Completed [facility] VACCINATION 00:00:00 [facility] PFIZER COVID-19 2020-07-02 Completed [facility] VACCINATION 00:00:00 [facility] PFIZER COVID-19 2020-07-02 Completed [facility] VACCINATION 00:00:00 [facility] PFIZER COVID-19 2020-07-02 Completed [facility] VACCINATION 00:00:00 [facility] PFIZER COVID-19 2020-07-02 Completed [facility] VACCINATION 00:00:00 [facility] PFIZER COVID-19 2020-07-02 Completed [facility] VACCINATION 00:00:00 [facility] PFIZER COVID-19 2020-07-02 Completed [facility] VACCINATION 00:00:00 [facility] PFIZER COVID-19 2020-07-02 Completed [facility] VACCINATION 00:00:00 [facility] PFIZER COVID-19 2020-07-02 Completed [facility] VACCINATION 00:00:00 [facility] PFIZER COVID-19 2020-07-02 Completed [facility] VACCINATION 00:00:00 [facility] PFIZER COVID-19 2020-07-02 Completed [facility] VACCINATION 00:00:00 [facility] PFIZER COVID-19 2020-07-02 Completed [facility] VACCINATION 00:00:00 [facility] PFIZER COVID-19 2020-07-02 Completed [facility] VACCINATION 00:00:00 [facility] PFIZER COVID-19 2020-07-02 Completed [facility] VACCINATION 00:00:00 [facility] PFIZER COVID-19 2020-07-02 Completed [facility] VACCINATION 00:00:00 [facility] PFIZER COVID-19 2020-07-02 Completed [facility] VACCINATION 00:00:00 [facility] PFIZER COVID-19 2020-07-02 Completed [facility] VACCINATION 00:00:00 [facility] PFIZER COVID-19 2020-07-02 Completed [facility] VACCINATION 00:00:00 [facility] PFIZER COVID-19 2020-07-02 Completed [facility] VACCINATION 00:00:00 [facility] PFIZER COVID-19 2020-07-02 Completed [facility] VACCINATION 00:00:00 [facility] PFIZER COVID-19 2020-07-02 Completed [facility] VACCINATION 00:00:00 [facility] PFIZER COVID-19 2020-07-02 Completed [facility] VACCINATION 00:00:00 [facility] SARS-COV-2 COVID-19 2020-07-02 Completed [facility]ity [...] [facility] 2020-07-02 Completed [facility] VACCINATION 00:00:00 [facility] Influenza Virus 2017-03-08 Completed Universit y [...] y of Vaccine (3+ yrs) 00:00:00 [facility] Pneumococcal 13 2014-01-30 Completed Universit y of Conjugate, PCV13 00:00:00 [facility] (Prevnar 13) Branch Influenza Virus 2014-01-30 Completed Universit y of Vaccine (3+ yrs) 00:00:00 [facility] Pneumococcal 13 2014-01-30 Completed Universit y of Conjugate, PCV13 [facility] Influ[facility] Virus 2014-01-30 Completed Universit y of Vaccine (3+ yrs) 00:00:00 [facility] Pneumococcal 13 2014-01-30 Completed Universit y of Conjugate, PCV13 00:00:00 [facility] [place] Influenza Virus 2014-01-30 Completed Universit y of Vaccine (3+ yrs) 00:00:00 [facility] Pneumococcal 13 2014-01-30 Completed Universit y of Conjugate, PCV13 00:00:00 [facility] (Prevnar 13) [facility] Influenza Virus 2014-01-30 Completed Universit y of Vaccine (3+ yrs) 00:00:00 [facility] Pneumococcal 13 2014-01-30 Completed Universit y of Conjugate, PCV13 00:00:00 [facility] (Prevnar 13) Branch Influenza Virus 2014-01-30 Completed Universit y of Vaccine (3+ yrs) 00:00:00 [facility] Pneumococcal 13 2014-01-30 Completed Universit y of Conjugate, PCV13 00:00:00 [facility] (Prevnar 13) Branch Influenza Virus 2014-01-30 Completed Universit y of Vaccine (3+ yrs) 00:00:00 [facility] Pneumococcal 13 2014-01-30 Completed Universit y of Conjugate, PCV13 00:00:00 [facility] (Prevnar 13) Branch Influenza Virus 2014-01-30 Completed Universit y of Vaccine (3+ yrs) 00:00:00 [facility] Pneumococcal 13 2014-01-30 Completed Universit y of Conjugate, PCV13 00:00:00 [facility] (Prevnar 13) [facility] Influenza Virus 2014-01-30 Completed Universit y of Vaccine (3+ yrs) 00:00:00 [facility] Pneumococcal 13 2014-01-30 Completed Universit y of Conjugate, PCV13 00:00:00 [facility] (Prevnar 13) Branch Influenza Virus 2014-01-30 Completed Universit y of Vaccine (3+ yrs) 00:00:00 [facility] Pneumococcal 13 2014-01-30 Completed Universit y of Conjugate, PCV13 00:00:00 [facility] (Prevnar 13) Branch Influenza Virus 2014-01-30 Completed Universit y of Vaccine (3+ yrs) 00:00:00 [facility] Pneumococcal 13 2014-01-30 Completed Universit y of Conjugate, PCV13 00:00:00 [facility] (Prevnar 13) Branch Influenza Virus 2014-01-30 Completed Universit y of Vaccine (3+ yrs) 00:00:00 [facility] Pneumococcal 13 2014-01-30 Completed Universit y of Conjugate, PCV13 00:00:00 [facility] (Prevnar 13) Branch Influenza Virus 2014-01-30 Completed Universit y of Vaccine (3+ yrs) 00:00:00 [facility] Pneumococcal 13 2014-01-30 Completed Universit y of Conjugate, PCV13 00:00:00 [facility] (Prevnar 13) Branch Influenza Virus 2014-01-30 Completed Universit y of Vaccine (3+ yrs) 00:00:00 [facility] Pneumococcal 13 2014-01-30 Completed Universit y of Conjugate, PCV13 00:00:00 [facility] (Prevnar 13) Branch Influenza Virus 2014-01-30 Completed Universit y of Vaccine (3+ yrs) 00:00:00 [facility] Pneumococcal 13 2014-01-30 Completed Universit y of Conjugate, PCV13 00:00:00 [facility] (Prevnar 13) Branch Influenza Virus 2014-01-30 Completed Universit y of Vaccine (3+ yrs) 00:00:00 [facility] Pneumococcal 13 2014-01-30 Completed Universit y of Conjugate, PCV13 00:00:00 [facility] (Prevnar 13) Branch Influenza Virus 2014-01-30 Completed Universit y of Vaccine (3+ yrs) 00:00:00 [facility] Pneumococcal 13 2014-01-30 Completed Universit y of Conjugate, PCV13 00:00:00 [facility] (Prevnar 13) Branch Influenza Virus 2014-01-30 Completed Universit y of Vaccine (3+ yrs) 00:00:00 [facility] Pneumococcal 13 2014-01-30 Completed Universit y of Conjugate, PCV13 00:00:00 [facility] (Prevnar 13) Branch Influenza Virus 2014-01-30 Completed Universit y of Vaccine (3+ yrs) 00:00:00 [facility] Pneumococcal 13 2014-01-30 Completed Universit y of Conjugate, PCV13 00:00:00 [facility] (Prevnar 13) Branch Influenza Virus 2014-01-30 Completed Universit y of Vaccine (3+ yrs) 00:00:00 [facility] Pneumococcal 13 2014-01-30 Completed Universit y of Conjugate, PCV13 00:00:00 [facility] (Prevnar 13) Branch Pneumococcal 2012-02-16 Completed [...] of Vaccine 00:00:00 [facility] Hep B, Adol or Pedi 2011-02-10 Completed Unive rsity of Dosage 00:00:00 [facility] Influenza Virus 2011-02-10 Completed Universit y of Vaccine 00:00:00 [facility] Hep B, Adol or Pedi 2011-02-10 [...] of Vaccine 00:00:00 [facility] Hep B, Adol or Pedi 2011-02-10 Completed Unive rsity of Dosage 00:00:00 [facility] Influenza Virus 2011-02-10 Completed Universit y of Vaccine 00:00:00 [facility] Hep B, Adol or Pedi 2011-02-10 Completed Unive rsity of Dosage 00:00:00 [facility] Influenza Virus 2011-02-10 Completed Universit y of Vaccine 00:00:00 [facility] Hep B, Adol or Pedi 2011-02-10 Completed Unive rsity of Dosage 00:00:00 [facility] Influenza Virus 2011-02-10 Completed Universit y of Vaccine 00:00:00 [facility] Hep B, Adol or Pedi 2011-02-10 Completed Unive rsity of Dosage 00:00:00 [facility] Influenza Virus 2011-02-10 Completed Universit y of Vaccine 00:00:00 [facility] Hep B, Adol or Pedi 2011-02-10 [...] of Vaccine 00:00:00 [facility] Hep B, Adol or Pedi 2011-02-10 Completed Unive rsity of Dosage 00:00:00 [facility] Influenza Virus 2011-02-10 Completed Universit y of Vaccine 00:00:00 [facility] Hep B, Adol or Pedi 2011-02-10 [...] University of 00:00:00 [facility] TDAP (ADACEL) 2010-11-18 Completed University of [...] University of 00:00:00 [facility] TDAP (ADACEL) 2010-11-18 Completed University of VACCINE 00:00:00 [facility] PPD (TB) 2010-11-18 Completed University of 00:00:00 [facility] TDAP (ADACEL) 2010-11-18 Completed University of VACCINE 00:00:00 [facility] PPD (TB) 2010-11-18 Completed University of 00:00:00 [facility] TDAP (ADACEL) 2010-11-18 Completed University of VACCINE 00:00:00 [facility] PPD (TB) 2010-11-18 Completed University of 00:00:00 [facility] TDAP (ADACEL) 2010-11-18 Completed University of VACCINE 00:00:00 [facility] PPD (TB) 2010-11-18 Completed University of 00:00:00 [facility] TDAP (ADACEL) 2010-11-18 Completed University of VACCINE 00:00:00 [facility] PPD (TB) 2010-11-18 Completed University of 00:00:00 [facility] TDAP (ADACEL) 2010-11-18 Completed University of VACCINE 00:00:00 [facility] PPD (TB) 2010-11-18 Completed University of 00:00:00 [facility] TDAP (ADACEL) 2010-11-18 Completed University of VACCINE 00:00:00 [facility] PPD (TB) 2010-11-18 Completed University of 00:00:00 [facility] TDAP (ADACEL) 2010-11-18 Completed University of [...] University of 00:00:00 [facility] HEPATITIS A 2004-03-02 Completed University of 00:00:00 [facility] HEPATITIS A 2004-03-02 Completed University of 00:00:00 [facility] HEPATITIS A 2004-03-02 Completed University of 00:00:00 [facility] HEPATITIS A 2004-03-02 Completed University of 00:00:00 [facility] HEPATITIS A 2004-03-02 Completed University of 00:00:00 [facility] HEPATITIS A 2004-03-02 Completed University of 00:00:00 [facility] HEPATITIS A 2004-03-02 Completed University of 00:00:00 [facility] HEPATITIS A 2004-03-02 Completed University of 00:00:00 [facility] HEPATITIS A 2004-03-02 Completed University of 00:00:00 [facility] HEPATITIS A 2004-03-02 Completed University of 00:00:00 [facility] HEPATITIS A 2004-03-02 Completed University of 00:00:00 [facility] HEPATITIS A 2004-03-02 Completed University of 00:00:00 [facility] HEPATITIS A 2004-03-02 Completed University of 00:00:00 [facility] HEPATITIS A 2004-03-02 Completed University of 00:00:00 [facility] HEPATITIS A 2004-03-02 Completed University of 00:00:00 [facility] HEPATITIS A 2004-03-02 Completed University of 00:00:00 [facility] HEPATITIS A 2004-03-02 Completed University of 00:00:00 [facility] HEPATITIS A 2004-03-02 Completed University of 00:00:00 [facility] HEPATITIS A 2004-03-02 Completed University of 00:00:00 [facility] HEPATITIS A 2003-08-01 Completed University of 00:00:00 [facility] HEPATITIS A 2003-08-01 Completed University of 00:00:00 [facility] HEPATITIS A 2003-08-01 Completed University of 00:00:00 [facility] HEPATITIS A 2003-08-01 Completed University of 00:00:00 [facility] HEPATITIS A 2003-08-01 Completed University of 00:00:00 [facility] HEPATITIS A 2003-08-01 Completed University of 00:00:00 [facility] HEPATITIS A 2003-08-01 Completed University of 00:00:00 [facility] HEPATITIS A 2003-08-01 Completed University of 00:00:00 [facility] HEPATITIS A 2003-08-01 Completed University of 00:00:00 [facility] HEPATITIS A 2003-08-01 Completed University of 00:00:00 [facility] HEPATITIS A 2003-08-01 Completed University of 00:00:00 [facility] HEPATITIS A 2003-08-01 Completed University of 00:00:00 [facility] HEPATITIS A 2003-08-01 Completed University of 00:00:00 [facility] HEPATITIS A 2003-08-01 Completed University of 00:00:00 [facility] HEPATITIS A 2003-08-01 Completed University of 00:00:00 [facility] HEPATITIS A 2003-08-01 Completed University of [...] (TB) 2001-10-04 Completed University of 00:00:00 [facility] Pneumococcal 2001-10-04 Completed University o f Polysaccharide, 00:00:00 [facility] [place] [facility] PPSV23 (PNEUMOVAX) Branch PPD (TB) 2001-10-04 Completed University of 00:00:00 [facility] Vital Signs Vital Name Observation Time Observation Value Comments Source Systolic blood 2022-05-10 22:00:00 159 mm[Hg] Univer sity of pressure [facility] Diastolic blood 2022-05-10 22:00:00 87 mm[Hg] Unive rsity of pressure [facility] Heart rate 2022-05-10 22:00:00 56 /min Universi ty of [facility] Body temperature 2022-05-10 22:00:00 36.61 Amina Univ ersity of [facility] Respiratory rate 2022-05-10 22:00:00 17 /min Univ ersity of [facility] Oxygen saturation in 2022-05-10 22:00:00 98 /min University of Arterial blood by [facility] Pulse oximetry Branch Body weight 2022-05-10 16:29:00 78.926 kg Universi ty of [facility] BMI 2022-05-10 16:29:00 29.87 kg/m2 Universi ty of [facility] Systolic blood 2022-05-08 22:30:00 168 mm[Hg] Univer sity of pressure [facility] Diastolic blood 2022-05-08 22:30:00 85 mm[Hg] Unive rsity of pressure [facility] Heart rate 2022-05-08 22:30:00 68 /min Universi ty of [facility] Oxygen saturation in 2022-05-08 22:30:00 100 /min University of Arterial blood by [facility] Pulse oximetry Branch Body temperature 2022-05-08 22:22:00 35.89 Amina Univ ersity of [facility] Respiratory rate 2022-05-08 22:22:00 14 /min [...] 99 /min University of Arterial blood by [facility] porfirio Pulse oximetry Branch Body temperature 2022-05-06 [...] 96 /min University of Arterial blood by [place] [employer] [facility] Pulse oximetry Branch Systolic blood 2022-03-05 [...] 18 /min Univ ersity of [facility] Body height 2022-03-05 15:18:00 162.6 cm Universi ty of [facility] Body weight 2022-03-05 15:18:00 74.707 kg Universi ty of [facility] BMI 2022-03-05 15:18:00 28.27 kg/m2 Universi ty of [facility] Systolic blood 2022-02-16 21:41:00 169 mm[Hg] Univer sity of pressure [facility] Diastolic blood 2022-02-16 21:41:00 86 mm[Hg] Unive rsity of pressure [facility] [place] Heart rate 2022-02-16 21:41:00 51 /min Universi ty of [facility] Body temperature 2022-02-16 21:41:00 36.56 Amina Univ ersity of [facility] Respiratory rate 2022-02-16 21:41:00 17 /min Univ ersity of [facility] Oxygen saturation in 2022-02-16 21:41:00 98 /min [facility] Arterial blood by [facility] Pulse oximetry Branch Body height 2022-02-11 16:02:00 162.6 cm [facility] of [facility] [place] Body weight 2022-02-11 16:02:00 79.379 kg [facility]i ty of [facility] BMI 2022-02-11 16:02:00 30.04 kg/m2 [facility] of [facility] Systolic blood 2021-11-20 13:47:00 165 mm[Hg] Univer sity of pressure [facility] Diastolic blood 2021-11-20 13:47:00 83 mm[Hg] Unive rsity of pressure [facility] Heart rate 2021-11-20 13:47:00 58 /min [facility] ty [facility] [place] Body temperature 2021-11-20 13:42:00 36.39 Amina Univ ersity of [facility] Respiratory rate 2021-11-20 13:42:00 16 /min Univ ersity of [facility] Body height 2021-11-20 13:42:00 162.6 cm [facility]i [facility] of [facility] Body weight 2021-11-20 13:42:00 84.369 kg [facility]i [facility] of [facility] BMI 2021-11-20 13:42:00 31.93 kg/m2 Universi ty of [facility] Systolic blood 2021-07-14 15:18:00 142 mm[Hg] [...] sity of pressure [facility] Diastolic blood 2022-05-10 22:00:00 87 mm[Hg] Unive rsity of [facility] Heart rate 2022-05-10 22:00:00 56 /min Universi ty of [facility] Body temperature 2022-05-10 22:00:00 36.61 Amina [facility] ersity of [facility] Respiratory rate 2022-05-10 22:00:00 17 /min [facility] Oxygen saturation in 2022-05-10 22:00:00 98 /min [facility] Arterial blood by [facility] Pulse oximetry Branch Body weight 2022-05-10 16:29:00 78.926 kg Universi ty of [facility] BMI 2022-05-10 16:29:00 29.87 kg/m2 [facility] Body height 2022-05-06 20:12:00 162.6 cm Universi ty of [facility] Systolic blood 2022-03-05 15:23:00 167 mm[Hg] Univer sity of pressure [facility] Diastolic blood 2022-03-05 15:23:00 105 mm[Hg] Unive rsity of pressure [facility] Heart rate 2022-03-05 15:23:00 49 /min [facility] Body temperature 2022-03-05 15:18:00 36.67 Amina [facility] Respiratory rate 2022-03-05 15:18:00 18 /min [facility] Body height 2022-03-05 15:18:00 162.6 cm [facility] Body weight 2022-03-05 15:18:00 74.707 kg [facility] BMI 2022-03-05 15:18:00 28.27 kg/m2 [facility] Oxygen saturation in 2022-02-16 21:41:00 98 /min University Arterial blood by [facility] Pulse oximetry Branch Systolic blood 2020-12-08 15:48:00 125 mm[Hg] [facility] pressure Diastolic blood 2020-12-08 15:48:00 76 mm[Hg] [facility] pressure Heart rate 2020-12-08 15:48:00 64 /min [facility] Body temperature 2020-12-08 15:48:00 36.61 Amina [facility] Respiratory rate 2020-12-08 15:48:00 17 /min [facility] Body height 2020-12-08 15:48:00 162.6 cm [facility] Body weight 2020-12-08 15:48:00 98.884 kg [facility] BMI 2020-12-08 15:48:00 37.42 kg/m2 [facility] Oxygen saturation in 2020-12-08 15:48:00 97 /min [facility] Arterial blood by Pulse oximetry Respitory Rate 2020-08-30 13:00:00 [facility] [place] Systolic (mm Hg) 2020-08-30 13:00:00 [facility] [place] Diastolic (mm Hg) 2020-08-30 13:00:00 Mem [facility] [place] Systolic (mm Hg) 2020-08-30 11:00:00 [facility] [place] Diastolic (mm Hg) 2020-08-30 11:00:00 Mem [facility] [place] Temperature Oral (F) 2020-08-30 11:00:00 98.4 F [facility] [place] Respitory Rate 2020-08-30 11:00:00 [facility] Respitory Rate 2020-08-30 10:00:00 [facility] Systolic (mm Hg) 2020-08-30 10:00:00 [facility] Diastolic (mm Hg) 2020-08-30 10:00:00 Mem [facility] [place] Temperature Oral (F) 2020-08-30 00:00:00 96.9 F [facility] [place] Temperature Oral (F) 2020-08-29 11:26:00 97.6 F [facility] [place] Height 2020-08-29 10:30:00 [facility] Calculated 2020-08-29 10:30:00 [place] andre [facility] Procedures Procedure Date / Time Performing Clinician Source Performed URINALYSIS 2022-05-10 19:36:[address] [facility] TROPONIN I 2022-05-10 18:34:[address] [facility] COMP. METABOLIC PANEL 2022-05-10 18:34:[address] [facility] ([id number]) [facility] CBC WITH DIFF 2022-05-10 18:34:[address] [facility] XR CHEST 2 VW 2022-05-10 17:24:[address] [facility] CONSENT/REFUSAL FOR 2022-05-10 16:26:23 Doctor Unassigned, [facility] DIAGNOSIS AND TREATMENT [place] [facility] CONSENT/REFUSAL FOR 2022-05-10 16:26:09 Doctor Unassigned, [facility] DIAGNOSIS AND TREATMENT [place] [facility] URINALYSIS 2022-05-08 22:43:[address] [facility] XR CHEST 2 VW 2022-05-06 22:56:[address] [facility] COMP. METABOLIC PANEL 2022-05-06 22:14:00 Anette Olea [facility] ([id number]) [facility] CBC WITH DIFF 2022-05-06 22:14:[address] [facility] COVID-19 (ID NOW RAPID 2022-05-06 22:14:00 Anette Olea [facility] TESTING Medical [place] BASIC METABOLIC PANEL (NA, 2022-04-22 21:23:00 Paulette Gray [facility] K, CL, CO2, GLUCOSE, BUN, Medica l Branch CREATININE, CA) CBC WITH DIFF 2022-04-22 21:23:00 Paulette Gray [facility] CONSENT/REFUSAL FOR 2022-04-22 19:45:46 Doctor Unassigned, [facility] DIAGNOSIS AND TREATMENT [place] [facility] SARS-COV-2 COVID-19 2022-03-05 16:09:27 [facility] DIMITRIS-SUCROSE VACCINE [address] [place] [address] YRS+, BIVALENT 0.3ML, IM, (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) FLU 2022-03-05 16:09:27 [facility] VACC(),65+YR,0.5 Medica l Branch ML,IM,ADJUVANTED,QUAD(FLUA D) FLU 2022-03-05 16:09:27 [facility] VACC(),65+YR,0.5 Medica l Branch ML,IM,ADJUVANTED,QUAD(FLUA D) SARS-COV-2 COVID-19 2022-03-05 16:09:27 [facility] DIMITRIS-SUCROSE VACCINE [address] [place] [address] YRS+, BIVALENT 0.3ML, IM, (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) MAGNESIUM 2022-02-15 09:41:[address] [facility] BASIC METABOLIC PANEL (NA, 2022-02-15 09:41:00 Sofia Garcia [facility] K, CL, CO2, GLUCOSE, BUN, Medica l Branch CREATININE, CA) CBC WITH DIFF 2022-02-15 09:41:[address] [facility] N-TERMINAL PRO-BNP 2022-02-15 09:41:00 Sofia Garcia [facility] CBC WITH DIFF 2022-02-15 09:41:[address] [facility] BASIC METABOLIC PANEL (NA, 2022-02-15 09:41:00 Radha [facility] K, CL, CO2, GLUCOSE, BUN, Medica l Branch CREATININE, CA) MAGNESIUM 2022-02-15 09:41:00 Radha [facility] N-TERMINAL PRO-BNP 2022-02-15 09:41:00 Sofia Garcia [facility] BASIC METABOLIC PANEL (NA, 2022-02-13 09:40:00 Sofia Garcia [facility] K, CL, CO2, GLUCOSE, BUN, Medica l Branch CREATININE, CA) CBC WITH DIFF 2022-02-13 09:40:00 Radha [facility] BASIC METABOLIC PANEL (NA, 2022-02-13 09:40:00 Sofia Garcia [facility] K, CL, CO2, GLUCOSE, BUN, Medica l Branch CREATININE, CA) CBC WITH DIFF 2022-02-13 09:40:00 Radha [facility] TROPONIN I 2022-02-11 23:41:00 Radha [facility] N-TERMINAL PRO-BNP 2022-02-11 23:41:00 Radha [facility] TROPONIN I 2022-02-11 23:41:00 Radha [facility] N-TERMINAL PRO-BNP 2022-02-11 23:41:00 Sofia Garcia [facility] HB ECG ROUTINE & RHYTHM 2022-02-11 22:15:36 [facility] (TTE) 2022-02-11 21:26:50 [facility] 2022-02-11 21:26:50 [facility] 2022-02-11 07:45:43 Reilly Means [facility] CT ABDOMEN PELVIS W 2022-02-11 07:45:43 Reilly Means [facility] RAPID INFLUENZA A/B 2022-02-11 06:54:00 Reilly Means [facility] RAPID INFLUENZA A/B 2022-02-11 06:54:00 Reilly Means [facility] URINALYSIS 2022-02-11 06:45:00 Reilly Means [facility] URINE CULTURE 2022-02-11 06:45:00 Reilly Means [facility] URINALYSIS 2022-02-11 06:45:00 Reilly [facility] URINE CULTURE 2022-02-11 06:45:00 Reilly [facility] HB ECG ROUTINE & RHYTHM 2022-02-11 05:22:08 Reilly Means [facility] HB ECG ROUTINE & RHYTHM 2022-02-11 05:22:08 Reilly Means [facility] BLOOD CULTURE SCREEN 2022-02-11 04:58:00 Reilly Means [facility] TROPONIN I 2022-02-11 04:58:00 Reilly Means [facility] COMP. METABOLIC PANEL 2022-02-11 04:58:00 Reilly Means [facility] ([id number]) [facility] CBC WITH DIFF 2022-02-11 04:58:00 Reilly Means [facility] PROTHROMBIN TIME / INR 2022-02-11 04:58:00 Reilly Means [facility] ACTIVATED PARTIAL THRMPLAS 2022-02-11 04:58:00 Reilly Means [facility] N-TERMINAL PRO-BNP 2022-02-11 04:58:[address] [facility] LACTIC ACID WHOLE BLOOD 2022-02-11 04:58:00 Reilly Means [facility] COVID-19 (ID NOW RAPID 2022-02-11 04:58:[address] [facility] TESTING) Medical Branch LAB ONLY COVID 2022-02-11 04:58:00 Reilly Means [facility] CBC WITH DIFF 2022-02-11 04:58:00 Reilly Means [facility] ACTIVATED PARTIAL THRMPLAS 2022-02-11 04:58:00 Reilly Means [facility] PROTHROMBIN TIME / INR 2022-02-11 04:58:00 Reilly Means [facility] COVID-19 (ID NOW RAPID 2022-02-11 04:58:[address] [facility] TESTING) Medical Branch COMP. METABOLIC PANEL 2022-02-11 04:58:00 Reilly Means [facility] ([id number]) Medical Branch TROPONIN I 2022-02-11 04:58:00 Reilly Means [facility] N-TERMINAL PRO-BNP 2022-02-11 04:58:[address] [facility] BLOOD CULTURE SCREEN 2022-02-11 04:58:00 Reilly Means [facility] LACTIC ACID WHOLE BLOOD 2022-02-11 04:58:00 Reilly Means [facility] LAB ONLY COVID 2022-02-11 04:58:00 Reilly Means [facility] INTERPRETATION [facility] XR CHEST 1 VW 2022-02-11 04:27:42 [facility] XR CHEST 1 VW 2022-02-11 04:27:42 Miguelangel [facility] HOSPITAL ADMISSION 2022-02-10 05:01:00 Doctor Unassigned, [facility] [place] [facility] HOSPITAL ADMISSION 2022-02-10 05:01:00 Doctor Unassigned, [facility] Name [facility] ECG 12-LEAD 2021-07-14 15:14:00 Elan Lira [facility] [id number] 2021-06-17 00:00:00 RIKY [facility] GASTROINTESTINAL PANEL 2020-12-08 22:21:00 Eliseo Arce [facility] XR ABDOMEN 1 VW 2020-12-08 18:06:32 Eliseo Arce spital OR [place] < 1 HOUR 2020-09-05 22:39:00 Eliseo Arce spijose SURGICAL PATHOLOGY REQUEST 2020-09-05 21:54:00 Eliseo Arce [facility] XR CHEST 1 VW PORTABLE 2020-09-05 19:55:00 Eliseo Arce [facility] DISCHARGE PATIENT 2020-09-05 17:27:55 [facility] 2020-09-05 16:47:23 [facility]irit [facility]OTRAC[facility] AIRWAY EGD, INTRAOPERATIVE 2020-09-05 16:27:00 Eliseo Arce [facility] PARTIAL THROMBOPLASTIN 2020-09-05 15:04:00 Sarai Maharaj [facility] TIME (PTT) M. PROTHROMBIN TIME WITH INR 2020-09-05 15:04:[address] [facility] M. Plan of Care Planned Activity Planned Date Details Comments Source Future Scheduled 2022-09-10 SHINGLES VACCINES (1 Met [facility] Test 15:06:53 of 2) [code = SHINGLES VACCINES (1 of 2)] Future Scheduled 2022-09-[address] [facility] Test 15:06:53 SCREENING [code = BREAST CANCER SCREENING] Future Scheduled 2022-09-10 COLONOSCOPY SCREENING [facility] Test 15:06:53 [code = COLONOSCOPY SCREENING] Future Scheduled 2022-09-10 HEPATITIS B VACCINES Met [facility] Test 15:06:53 (1 of 3 - Risk 3-dose series) [code = HEPATITIS B VACCINES (1 of 3 - Risk 3-dose series)] Future Scheduled 2022-09-10 COVID-19 VACCINE (3 - [facility] Test 15:06:53 Booster for Pfizer series) [code = COVID-19 VACCINE (3 - Booster for Pfizer series)] Future Scheduled 2022-09-10 65+ PNEUMOCOCCAL [facility] Test 15:06:53 VACCINE (4 - PPSV23 if available, else PCV20) [code = 65+ PNEUMOCOCCAL VACCINE (4 - PPSV23 if available, else PCV20)] Future Scheduled 2022-09-10 INFLUENZA VACCINE Method [facility] Test 15:06:53 [code = INFLUENZA VACCINE] Future Scheduled 2022-09-10 SHINGLES VACCINES (1 Met [facility] Test 15:06:53 of 2) [code = SHINGLES VACCINES (1 of 2)] Future Scheduled 2022-09-[address] [facility] Test 15:06:53 SCREENING [code = BREAST CANCER SCREENING] Future Scheduled 2022-09-10 COLONOSCOPY SCREENING [facility] Test 15:06:53 [code = COLONOSCOPY SCREENING] Future Scheduled 2022-09-10 HEPATITIS B VACCINES Met [facility] Test 15:06:53 (1 of 3 - Risk 3-dose series) [code = HEPATITIS B VACCINES (1 of 3 - Risk 3-dose series)] Future Scheduled 2022-09-10 COVID-19 VACCINE (3 - Me [facility] Test 15:06:53 Booster for Pfizer series) [code = COVID-19 VACCINE (3 - Booster for Pfizer series)] Future Scheduled 2022-09-10 65+ PNEUMOCOCCAL [facility] Test 15:06:53 VACCINE (4 - PPSV23 if available, else PCV20) [code = 65+ PNEUMOCOCCAL VACCINE (4 - PPSV23 if available, else PCV20)] Future Scheduled 2022-09-10 INFLUENZA VACCINE Method [facility] Test 15:06:53 [code = INFLUENZA VACCINE] Future Scheduled 2022-09-10 SHINGLES VACCINES (1 Met [facility] Test 15:06:53 of 2) [code = SHINGLES VACCINES (1 of 2)] Future Scheduled 2022-09-[address] [facility] Test 15:06:53 SCREENING [code = BREAST CANCER SCREENING] Future Scheduled 2022-09-10 COLONOSCOPY SCREENING [facility] Test 15:06:53 [code = COLONOSCOPY SCREENING] Future Scheduled 2022-09-10 HEPATITIS B VACCINES Met [facility] Test 15:06:53 (1 of 3 - Risk 3-dose series) [code = HEPATITIS B VACCINES (1 of 3 - Risk 3-dose series)] Future Scheduled 2022-09-10 COVID-19 VACCINE (3 - [facility] Test 15:06:53 Booster for Pfizer series) [code = COVID-19 VACCINE (3 - Booster for Pfizer series)] Future Scheduled 2022-09-10 65+ [facility]:06:53 VACCINE (4 - PPSV23 if available, else PCV20) [code = 65+ PNEUMOCOCCAL VACCINE (4 - PPSV23 if available, else PCV20)] Future Scheduled 2022-09-10 INFLUENZA VACCINE Method [facility] Test 15:06:53 [code = INFLUENZA VACCINE] Future Scheduled 2022-08-26 SHINGLES VACCINES (1 Met [facility] Test 14:43:48 of 2) [code = SHINGLES VACCINES (1 of 2)] Future Scheduled 2022-08-[address] [facility] Test 14:43:48 SCREENING [code = BREAST CANCER SCREENING] Future Scheduled 2022-08-26 COLONOSCOPY SCREENING Me [facility] Test 14:43:48 [code = COLONOSCOPY SCREENING] Future Scheduled 2022-08-26 HEPATITIS B VACCINES Met [facility] Test 14:43:48 (1 of 3 - Risk 3-dose series) [code = HEPATITIS B VACCINES (1 of 3 - Risk 3-dose series)] Future Scheduled 2022-08-26 COVID-19 VACCINE (3 - Me [facility] Test 14:43:48 Booster for Pfizer series) [code = COVID-19 VACCINE (3 - Booster for Pfizer series)] Future Scheduled 2022-08-26 65+ [facility]AL [facility] 14:43:48 VACCINE (4 - PPSV23 if available, else PCV20) [code = 65+ PNEUMOCOCCAL VACCINE (4 - PPSV23 if available, else PCV20)] Future Scheduled 2022-08-26 INFLUENZA VACCINE Method [facility] Test 14:43:48 [code = INFLUENZA VACCINE] Future Scheduled 2022-08-07 SHINGLES VACCINES (1 Met [facility] Test 23:30:11 of 2) [code = SHINGLES VACCINES (1 of 2)] Future Scheduled 2022-08-[address] [facility] Test 23:30:11 SCREENING [code = BREAST CANCER SCREENING] Future Scheduled 2022-08-07 COLONOSCOPY SCREENING [facility] Test 23:30:11 [code = COLONOSCOPY SCREENING] Future Scheduled 2022-08-07 HEPATITIS B VACCINES Met [facility] Test 23:30:11 (1 of 3 - Risk 3-dose series) [code = HEPATITIS B VACCINES (1 of 3 - Risk 3-dose series)] Future Scheduled 2022-08-07 COVID-19 VACCINE (3 - Me [facility] Test 23:30:11 Booster for Pfizer series) [code = COVID-19 VACCINE (3 - Booster for Pfizer series)] Future Scheduled 2022-08-07 65+ [facility]CCAL [facility] Test 23:30:11 VACCINE (4 - PPSV23 if available, else PCV20) [code = 65+ PNEUMOCOCCAL VACCINE (4 - PPSV23 if available, else PCV20)] Future Scheduled 2022-08-07 INFLUENZA VACCINE Method [facility] Test 23:30:11 [code = INFLUENZA VACCINE] Future Scheduled 2022-08-07 SHINGLES VACCINES (1 Met [facility] Test 23:30:11 of 2) [code = SHINGLES VACCINES (1 of 2)] Future Scheduled 2022-08-[address] [facility] Test 23:30:11 SCREENING [code = BREAST CANCER SCREENING] Future Scheduled 2022-08-07 COLONOSCOPY SCREENING [facility] Test 23:30:11 [code = COLONOSCOPY SCREENING] Future Scheduled 2022-08-07 HEPATITIS B VACCINES Met [facility] Test 23:30:11 (1 of 3 - Risk 3-dose series) [code = HEPATITIS B VACCINES (1 of 3 - Risk 3-dose series)] Future Scheduled 2022-08-07 COVID-19 VACCINE (3 - [facility] Test 23:30:11 Booster for Pfizer series) [code = COVID-19 VACCINE (3 - Booster for Pfizer series)] Future Scheduled 2022-08-07 65+ PNEUMOCOCCAL [facility] Test 23:30:11 VACCINE (4 - PPSV23 if available, else PCV20) [code = 65+ PNEUMOCOCCAL VACCINE (4 - PPSV23 if available, else PCV20)] Future Scheduled 2022-08-07 INFLUENZA VACCINE Method [facility] Test 23:30:11 [code = INFLUENZA VACCINE] Future Scheduled 2022-08-06 SHINGLES VACCINES (1 Met [facility] Test 15:48:02 of 2) [code = SHINGLES VACCINES (1 of 2)] Future Scheduled 2022-08-[address] [facility] Test 15:48:02 SCREENING [code = BREAST CANCER SCREENING] Future Scheduled 2022-08-06 COLONOSCOPY SCREENING [facility] Test 15:48:02 [code = COLONOSCOPY SCREENING] Future Scheduled 2022-08-06 HEPATITIS B VACCINES Met [facility] Test 15:48:02 (1 of 3 - Risk 3-dose series) [code = HEPATITIS B VACCINES (1 of 3 - Risk 3-dose series)] Future Scheduled 2022-08-06 COVID-19 VACCINE (3 - [facility] Test 15:48:02 Booster for Pfizer series) [code = COVID-19 VACCINE (3 - Booster for Pfizer series)] Future Scheduled 2022-08-06 65+ [facility]02 VACCINE (4 - PPSV23 if available, else PCV20) [code = 65+ PNEUMOCOCCAL VACCINE (4 - PPSV23 if available, else PCV20)] Future Scheduled 2022-08-06 INFLUENZA VACCINE Method [facility] Test 15:48:02 [code = INFLUENZA VACCINE] Future Scheduled 2022-06-11 SHINGLES VACCINES (1 Met [facility] Test 16:10:12 of 2) [code = SHINGLES VACCINES (1 of 2)] Future Scheduled 2022-06-[address] [facility] Test 16:10:12 SCREENING [code = BREAST CANCER SCREENING] Future Scheduled 2022-06-11 COLONOSCOPY SCREENING [facility] Test 16:10:12 [code = COLONOSCOPY SCREENING] Future Scheduled 2022-06-11 HEPATITIS B VACCINES Met [facility] Test 16:10:12 (1 of 3 - Risk 3-dose series) [code = HEPATITIS B VACCINES (1 of 3 - Risk 3-dose series)] Future Scheduled 2022-06-11 COVID-19 VACCINE (3 - Me [facility] Test 16:10:12 Booster for Pfizer series) [code = COVID-19 VACCINE (3 - Booster for Pfizer series)] Future Scheduled 2022-06-11 65+ [facility] 16:10:12 VACCINE (4 - PPSV23 if available, else PCV20) [code = 65+ PNEUMOCOCCAL VACCINE (4 - PPSV23 if available, else PCV20)] Future Scheduled 2022-06-11 INFLUENZA VACCINE Method [facility] Test 16:10:12 [code = INFLUENZA VACCINE] Future Scheduled 2022-06-11 SHINGLES VACCINES (1 Met [facility] Test 16:10:12 of 2) [code = SHINGLES VACCINES (1 of 2)] Future Scheduled 2022-06-[address] [facility] Test 16:10:12 SCREENING [code = BREAST CANCER SCREENING] Future Scheduled 2022-06-11 COLONOSCOPY SCREENING [facility] Test 16:10:12 [code = COLONOSCOPY SCREENING] Future Scheduled 2022-06-11 HEPATITIS B VACCINES Met [facility] Test 16:10:12 (1 of 3 - Risk 3-dose series) [code = HEPATITIS B VACCINES (1 of 3 - Risk 3-dose series)] Future Scheduled 2022-06-11 COVID-19 VACCINE (3 - [facility] Test 16:10:12 Booster for Pfizer series) [code = COVID-19 VACCINE (3 - Booster for Pfizer series)] Future Scheduled 2022-06-11 65+ [facility]AL [facility] Test 16:10:12 VACCINE (4 - PPSV23 if available, else PCV20) [code = 65+ PNEUMOCOCCAL VACCINE (4 - PPSV23 if available, else PCV20)] Future Scheduled 2022-06-11 INFLUENZA VACCINE Method [facility] Test 16:10:12 [code = INFLUENZA VACCINE] Future Scheduled 2022-06-11 SHINGLES VACCINES (1 Met [facility] Test 16:10:12 of 2) [code = SHINGLES VACCINES (1 of 2)] Future Scheduled 2022-06-[address] [facility] Test 16:10:12 SCREENING [code = BREAST CANCER SCREENING] Future Scheduled 2022-06-11 COLONOSCOPY SCREENING [facility] Test 16:10:12 [code = COLONOSCOPY SCREENING] Future Scheduled 2022-06-11 HEPATITIS B VACCINES Met [facility] Test 16:10:12 (1 of 3 - Risk 3-dose series) [code = HEPATITIS B VACCINES (1 of 3 - Risk 3-dose series)] Future Scheduled 2022-06-11 COVID-19 VACCINE (3 - Me [facility] Test 16:10:12 Booster for Pfizer series) [code = COVID-19 VACCINE (3 - Booster for Pfizer series)] Future Scheduled 2022-06-11 65+ [facility]CCAL [facility] Test 16:10:12 VACCINE (4 - PPSV23 if available, else PCV20) [code = 65+ PNEUMOCOCCAL VACCINE (4 - PPSV23 if available, else PCV20)] Future Scheduled 2022-06-11 INFLUENZA VACCINE Method [facility] Test 16:10:12 [code = INFLUENZA VACCINE] Future Scheduled 2022-06-11 SHINGLES VACCINES (1 Met [facility] Test 16:10:12 of 2) [code = SHINGLES VACCINES (1 of 2)] Future Scheduled 2022-06-[address] [facility] Test 16:10:12 SCREENING [code = BREAST CANCER SCREENING] Future Scheduled 2022-06-11 COLONOSCOPY SCREENING [facility] Test 16:10:12 [code = COLONOSCOPY SCREENING] Future Scheduled 2022-06-11 HEPATITIS B VACCINES Met [facility] Test 16:10:12 (1 of 3 - Risk 3-dose series) [code = HEPATITIS B VACCINES (1 of 3 - Risk 3-dose series)] Future Scheduled 2022-06-11 COVID-19 VACCINE (3 - [facility] Test 16:10:12 Booster for Pfizer series) [code = COVID-19 VACCINE (3 - Booster for Pfizer series)] Future Scheduled 2022-06-11 65+ [facility] 16:10:12 VACCINE (4 - PPSV23 if available, else PCV20) [code = 65+ PNEUMOCOCCAL VACCINE (4 - PPSV23 if available, else PCV20)] Future Scheduled 2022-06-11 INFLUENZA VACCINE Method [facility] Test 16:10:12 [code = INFLUENZA VACCINE] Future Scheduled 2022-06-11 SHINGLES VACCINES (1 Met [facility] Test 16:10:12 of 2) [code = SHINGLES VACCINES (1 of 2)] Future Scheduled 2022-06-[address] [facility] Test 16:10:12 SCREENING [code = BREAST CANCER SCREENING] Future Scheduled 2022-06-11 COLONOSCOPY SCREENING [facility] Test 16:10:12 [code = COLONOSCOPY SCREENING] Future Scheduled 2022-06-11 HEPATITIS B VACCINES Met [facility] Test 16:10:12 (1 of 3 - Risk 3-dose series) [code = HEPATITIS B VACCINES (1 of 3 - Risk 3-dose series)] Future Scheduled 2022-06-11 COVID-19 VACCINE (3 - [facility] Test 16:10:12 Booster for Pfizer series) [code = COVID-19 VACCINE (3 - Booster for Pfizer series)] Future Scheduled 2022-06-11 65+ [facility] 16:10:12 VACCINE (4 - PPSV23 if available, else PCV20) [code = 65+ PNEUMOCOCCAL VACCINE (4 - PPSV23 if available, else PCV20)] Future Scheduled 2022-06-11 INFLUENZA VACCINE Method [facility] Test 16:10:12 [code = INFLUENZA VACCINE] Future Scheduled 2022-06-11 SHINGLES VACCINES (1 Met [facility] Test 16:10:12 of 2) [code = SHINGLES VACCINES (1 of 2)] Future Scheduled 2022-06-[address] [facility] Test 16:10:12 SCREENING [code = BREAST CANCER SCREENING] Future Scheduled 2022-06-11 COLONOSCOPY SCREENING Me [facility] Test 16:10:12 [code = COLONOSCOPY SCREENING] Future Scheduled 2022-06-11 HEPATITIS B VACCINES Met [facility] Test 16:10:12 (1 of 3 - Risk 3-dose series) [code = HEPATITIS B VACCINES (1 of 3 - Risk 3-dose series)] Future Scheduled 2022-06-11 COVID-19 VACCINE (3 - [facility] Test 16:10:12 Booster for Pfizer series) [code = COVID-19 VACCINE (3 - Booster for Pfizer series)] Future Scheduled 2022-06-11 65+ PNEUMOCOCCAL Method[facility] Test 16:10:12 VACCINE (4 - PPSV23 if available, else PCV20) [code = 65+ PNEUMOCOCCAL VACCINE (4 - PPSV23 if available, else PCV20)] Future Scheduled 2022-06-11 INFLUENZA VACCINE Method [facility] Test 16:10:12 [code = INFLUENZA VACCINE] Future Scheduled 2022-06-11 SHINGLES VACCINES (1 Met [facility] Test 16:10:12 of 2) [code = SHINGLES VACCINES (1 of 2)] Future Scheduled 2022-06-[address] [facility] Test 16:10:12 SCREENING [code = BREAST CANCER SCREENING] Future Scheduled 2022-06-11 COLONOSCOPY SCREENING [facility] Test 16:10:12 [code = COLONOSCOPY SCREENING] Future Scheduled 2022-06-11 HEPATITIS B VACCINES Met [facility] Test 16:10:12 (1 of 3 - Risk 3-dose series) [code = HEPATITIS B VACCINES (1 of 3 - Risk 3-dose series)] Future Scheduled 2022-06-11 COVID-19 VACCINE (3 - Me [facility] Test 16:10:12 Booster for Pfizer series) [code = COVID-19 VACCINE (3 - Booster for Pfizer series)] Future Scheduled 2022-06-11 65+ P[facility]UMOCOCCAL [facility] Test 16:10:12 VACCINE (4 - PPSV23 if available, else PCV20) [code = 65+ PNEUMOCOCCAL VACCINE (4 - PPSV23 if available, else PCV20)] Future Scheduled 2022-06-11 INFLUENZA VACCINE Method [facility] Test 16:10:12 [code = INFLUENZA VACCINE] Future Scheduled 2022-06-11 SHINGLES VACCINES (1 Met [facility] Test 16:10:12 of 2) [code = SHINGLES VACCINES (1 of 2)] Future Scheduled 2022-06-[address] [facility] Test 16:10:12 SCREENING [code = BREAST CANCER SCREENING] Future Scheduled 2022-06-11 COLONOSCOPY SCREENING [facility] Test 16:10:12 [code = COLONOSCOPY SCREENING] Future Scheduled 2022-06-11 HEPATITIS B VACCINES Met [facility] Test 16:10:12 (1 of 3 - Risk 3-dose series) [code = HEPATITIS B VACCINES (1 of 3 - Risk 3-dose series)] Future Scheduled 2022-06-11 COVID-19 VACCINE (3 - Me [facility] Test 16:10:12 Booster for Pfizer series) [code = COVID-19 VACCINE (3 - Booster for Pfizer series)] Future Scheduled 2022-06-11 65+ PNEUMOCOCCAL [facility] Test 16:10:12 VACCINE (4 - PPSV23 if available, else PCV20) [code = 65+ PNEUMOCOCCAL VACCINE (4 - PPSV23 if available, else PCV20)] Future Scheduled 2022-06-11 INFLUENZA VACCINE Method [facility] Test 16:10:12 [code = INFLUENZA VACCINE] Future Scheduled 2022-06-11 SHINGLES VACCINES (1 Met [facility] Test 16:10:12 of 2) [code = SHINGLES VACCINES (1 of 2)] Future Scheduled 2022-06-[address] [facility] Test 16:10:12 SCREENING [code = BREAST CANCER SCREENING] Future Scheduled 2022-06-11 COLONOSCOPY SCREENING [facility] Test 16:10:12 [code = COLONOSCOPY SCREENING] Future Scheduled 2022-06-11 HEPATITIS B VACCINES Met [facility] Test 16:10:12 (1 of 3 - Risk 3-dose series) [code = HEPATITIS B VACCINES (1 of 3 - Risk 3-dose series)] Future Scheduled 2022-06-11 COVID-19 VACCINE (3 - Me [facility] Test 16:10:12 Booster for Pfizer series) [code = COVID-19 VACCINE (3 - Booster for Pfizer series)] Future Scheduled 2022-06-11 65+ [facility] Test 16:10:12 VACCINE (4 - PPSV23 if available, else PCV20) [code = 65+ PNEUMOCOCCAL VACCINE (4 - PPSV23 if available, else PCV20)] Future Scheduled 2022-06-11 INFLUENZA VACCINE Method [facility] Test 16:10:12 [code = INFLUENZA VACCINE] Future Scheduled 2022-05-10 SHINGLES VACCINES (1 Met [facility] Test 10:21:35 of 2) [code = SHINGLES VACCINES (1 of 2)] Future Scheduled 2022-05-[address] [facility] Test 10:21:35 SCREENING [code = BREAST CANCER SCREENING] Future Scheduled 2022-05-10 COLONOSCOPY SCREENING [facility] Test 10:21:35 [code = COLONOSCOPY SCREENING] Future Scheduled 2022-05-10 HEPATITIS B VACCINES Met [facility] Test 10:21:35 (1 of 3 - Risk 3-dose series) [code = HEPATITIS B VACCINES (1 of 3 - Risk 3-dose series)] Future Scheduled 2022-05-10 COVID-19 VACCINE (3 - Me [facility] Test 10:21:35 Booster for Pfizer series) [code = COVID-19 VACCINE (3 - Booster for Pfizer series)] Future Scheduled 2022-05-10 65[facility] 10:21:35 VACCINE (4 - PPSV23 if available, else PCV20) [code = 65+ PNEUMOCOCCAL VACCINE (4 - PPSV23 if available, else PCV20)] Future Scheduled 2022-05-10 INFLUENZA VACCINE Method [facility] Test 10:21:35 [code = INFLUENZA VACCINE] Future Scheduled 2022-05-10 SHINGLES VACCINES (1 Met [facility] Test 10:21:35 of 2) [code = SHINGLES VACCINES (1 of 2)] Future Scheduled 2022-05-[address] [facility] Test 10:21:35 SCREENING [code = BREAST CANCER SCREENING] Future Scheduled 2022-05-10 COLONOSCOPY SCREENING [facility] Test 10:21:35 [code = COLONOSCOPY SCREENING] Future Scheduled 2022-05-10 HEPATITIS B VACCINES Met [facility] Test 10:21:35 (1 of 3 - Risk 3-dose series) [code = HEPATITIS B VACCINES (1 of 3 - Risk 3-dose series)] Future Scheduled 2022-05-10 COVID-19 VACCINE (3 - [facility] Test 10:21:35 Booster for Pfizer series) [code = COVID-19 VACCINE (3 - Booster for Pfizer series)] Future Scheduled 2022-05-10 65[facility] 10:21:35 VACCINE (4 - PPSV23 if available, else PCV20) [code = 65+ PNEUMOCOCCAL VACCINE (4 - PPSV23 if available, else PCV20)] Future Scheduled 2022-05-10 INFLUENZA VACCINE Method [facility] Test 10:21:35 [code = INFLUENZA VACCINE] Future Scheduled 2022-05-06 SHINGLES VACCINES (1 Met [facility] Test 14:03:13 of 2) [code = SHINGLES VACCINES (1 of 2)] Future Scheduled 2022-05-[address] [facility] Test 14:03:13 SCREENING [code = BREAST CANCER SCREENING] Future Scheduled 2022-05-06 COLONOSCOPY SCREENING [facility] Test 14:03:13 [code = COLONOSCOPY SCREENING] Future Scheduled 2022-05-06 HEPATITIS B VACCINES Met [facility] Test 14:03:13 (1 of 3 - Risk 3-dose series) [code = HEPATITIS B VACCINES (1 of 3 - Risk 3-dose series)] Future Scheduled 2022-05-06 COVID-19 VACCINE (3 - [facility] Test 14:03:13 Booster for Pfizer series) [code = COVID-19 VACCINE (3 - Booster for Pfizer series)] Future Scheduled 2022-05-06 65+ PNEUMOCOCCAL [facility] Test 14:03:13 VACCINE (4 - PPSV23 if available, else PCV20) [code = 65+ PNEUMOCOCCAL VACCINE (4 - PPSV23 if available, else PCV20)] Future Scheduled 2022-05-06 INFLUENZA VACCINE Method [facility] Test 14:03:13 [code = INFLUENZA VACCINE] Future Scheduled 2022-04-30 SHINGLES VACCINES (1 Met [facility] Test 01:07:32 of 2) [code = SHINGLES VACCINES (1 of 2)] Future Scheduled 2022-04-[address] [facility] Test 01:07:32 SCREENING [code = BREAST CANCER SCREENING] Future Scheduled 2022-04-30 COLONOSCOPY SCREENING [facility] Test 01:07:32 [code = COLONOSCOPY SCREENING] Future Scheduled 2022-04-30 HEPATITIS B VACCINES Met [facility] Test 01:07:32 (1 of 3 - Risk 3-dose series) [code = HEPATITIS B VACCINES (1 of 3 - Risk 3-dose series)] Future Scheduled 2022-04-30 COVID-19 VACCINE (3 - [facility] Test 01:07:32 Booster for Pfizer series) [code = COVID-19 VACCINE (3 - Booster for Pfizer series)] Future Scheduled 2022-04-30 65+ PNEUMOCOCCAL [facility] Test 01:07:32 VACCINE (4 - PPSV23 if available, else PCV20) [code = 65+ PNEUMOCOCCAL VACCINE (4 - PPSV23 if available, else PCV20)] Future Scheduled 2022-04-30 INFLUENZA VACCINE Method [facility] Test 01:07:32 [code = INFLUENZA VACCINE] Future Scheduled 2022-04-30 SHINGLES VACCINES (1 Met [facility] Test 01:07:32 of 2) [code = SHINGLES VACCINES (1 of 2)] Future Scheduled 2022-04-[address] [facility] Test 01:07:32 SCREENING [code = BREAST CANCER SCREENING] Future Scheduled 2022-04-30 COLONOSCOPY SCREENING [facility] Test 01:07:32 [code = COLONOSCOPY SCREENING] Future Scheduled 2022-04-30 HEPATITIS B VACCINES Met [facility] Test 01:07:32 (1 of 3 - Risk 3-dose series) [code = HEPATITIS B VACCINES (1 of 3 - Risk 3-dose series)] Future Scheduled 2022-04-30 COVID-19 VACCINE (3 - [facility] Test 01:07:32 Booster for Pfizer series) [code = COVID-19 VACCINE (3 - Booster for Pfizer series)] Future Scheduled 2022-04-30 65+ PNEUMOCOCCAL [facility] Test 01:07:32 VACCINE (4 - PPSV23 if available, else PCV20) [code = 65+ PNEUMOCOCCAL VACCINE (4 - PPSV23 if available, else PCV20)] Future Scheduled 2022-04-30 INFLUENZA VACCINE Method [facility] Test 01:07:32 [code = INFLUENZA VACCINE] Future Scheduled 2022-04-30 SHINGLES VACCINES (1 Met [facility] Test 01:07:32 of 2) [code = SHINGLES VACCINES (1 of 2)] Future Scheduled 2022-04-[address] [facility] Test 01:07:32 SCREENING [code = BREAST CANCER SCREENING] Future Scheduled 2022-04-30 COLONOSCOPY SCREENING [facility] Test 01:07:32 [code = COLONOSCOPY SCREENING] Future Scheduled 2022-04-30 HEPATITIS B VACCINES Met [facility] Test 01:07:32 (1 of 3 - Risk 3-dose series) [code = HEPATITIS B VACCINES (1 of 3 - Risk 3-dose series)] Future Scheduled 2022-04-30 COVID-19 VACCINE (3 - Me [facility] Test 01:07:32 Booster for Pfizer series) [code = COVID-19 VACCINE (3 - Booster for Pfizer series)] Future Scheduled 2022-04-30 65+ PNEUMOCOCCAL [facility] Test 01:07:32 VACCINE (4 - PPSV23 if available, else PCV20) [code = 65+ PNEUMOCOCCAL VACCINE (4 - PPSV23 if available, else PCV20)] Future Scheduled 2022-04-30 INFLUENZA VACCINE Method [facility] Test 01:07:32 [code = INFLUENZA VACCINE] Future Scheduled 2022-04-25 SHINGLES VACCINES (1 Met [facility] Test 01:45:02 of 2) [code = SHINGLES VACCINES (1 of 2)] Future Scheduled 2022-04-[address] [facility] Test 01:45:02 SCREENING [code = BREAST CANCER SCREENING] Future Scheduled 2022-04-25 COLONOSCOPY SCREENING [facility] Test 01:45:02 [code = COLONOSCOPY SCREENING] Future Scheduled 2022-04-25 HEPATITIS B VACCINES Met [facility] Test 01:45:02 (1 of 3 - Risk 3-dose series) [code = HEPATITIS B VACCINES (1 of 3 - Risk 3-dose series)] Future Scheduled 2022-04-25 COVID-19 VACCINE (3 - [facility] Test 01:45:02 Booster for Pfizer series) [code = COVID-19 VACCINE (3 - Booster for Pfizer series)] Future Scheduled 2022-04-25 65+ PNEUMOCOCCAL [facility] Test 01:45:02 VACCINE (4 - PPSV23 if available, else PCV20) [code = 65+ PNEUMOCOCCAL VACCINE (4 - PPSV23 if available, else PCV20)] Future Scheduled 2022-04-25 INFLUENZA VACCINE Method [facility] Test 01:45:02 [code = INFLUENZA VACCINE] Future Scheduled 2022-03-25 SHINGLES VACCINES (1 Met [facility] Test 14:48:42 of 2) [code = SHINGLES VACCINES (1 of 2)] Future Scheduled 2022-03-[address] [facility] Test 14:48:42 SCREENING [code = BREAST CANCER SCREENING] Future Scheduled 2022-03-25 COLONOSCOPY SCREENING Me [facility] Test 14:48:42 [code = COLONOSCOPY SCREENING] Future Scheduled 2022-03-25 HEPATITIS B VACCINES Met [facility] Test 14:48:42 (1 of 3 - Risk 3-dose series) [code = HEPATITIS B VACCINES (1 of 3 - Risk 3-dose series)] Future Scheduled 2022-03-25 COVID-19 VACCINE (3 - [facility] Test 14:48:42 Booster for Pfizer series) [code = COVID-19 VACCINE (3 - Booster for Pfizer series)] Future Scheduled 2022-03-25 65+ [facility] Test 14:48:42 VACCINE (4 - PPSV23 if available, else PCV20) [code = 65+ PNEUMOCOCCAL VACCINE (4 - PPSV23 if available, else PCV20)] Future Scheduled 2022-03-25 INFLUENZA VACCINE Method [facility] Test 14:48:42 [code = INFLUENZA VACCINE] Future Scheduled 2022-03-25 SHINGLES VACCINES (1 Met [facility] Test 14:48:42 of 2) [code = SHINGLES VACCINES (1 of 2)] Future Scheduled 2022-03-[address] [facility] Test 14:48:42 SCREENING [code = BREAST CANCER SCREENING] Future Scheduled 2022-03-25 COLONOSCOPY SCREENING [facility] Test 14:48:42 [code = COLONOSCOPY SCREENING] Future Scheduled 2022-03-25 HEPATITIS B VACCINES Met [facility] Test 14:48:42 (1 of 3 - Risk 3-dose series) [code = HEPATITIS B VACCINES (1 of 3 - Risk 3-dose series)] Future Scheduled 2022-03-25 COVID-19 VACCINE (3 - [facility] Test 14:48:42 Booster for Pfizer series) [code = COVID-19 VACCINE (3 - Booster for Pfizer series)] Future Scheduled 2022-03-25 65+ [facility] 14:48:42 VACCINE (4 - PPSV23 if available, else PCV20) [code = 65+ PNEUMOCOCCAL VACCINE (4 - PPSV23 if available, else PCV20)] Future Scheduled 2022-03-25 INFLUENZA VACCINE Method [facility] Test 14:48:42 [code = INFLUENZA VACCINE] Future Scheduled 2022-03-25 SHINGLES VACCINES (1 Met [facility] Test 14:48:42 of 2) [code = SHINGLES VACCINES (1 of 2)] Future Scheduled 2022-03-[address] [facility] Test 14:48:42 SCREENING [code = BREAST CANCER SCREENING] Future Scheduled 2022-03-25 COLONOSCOPY SCREENING [facility] Test 14:48:42 [code = COLONOSCOPY SCREENING] Future Scheduled 2022-03-25 HEPATITIS B VACCINES Met [facility] Test 14:48:42 (1 of 3 - Risk 3-dose series) [code = HEPATITIS B VACCINES (1 of 3 - Risk 3-dose series)] Future Scheduled 2022-03-25 COVID-19 VACCINE (3 - [facility] Test 14:48:42 Booster for Pfizer series) [code = COVID-19 VACCINE (3 - Booster for Pfizer series)] Future Scheduled 2022-03-25 65+ [facility] 14:48:42 VACCINE (4 - PPSV23 if available, else PCV20) [code = 65+ PNEUMOCOCCAL VACCINE (4 - PPSV23 if available, else PCV20)] Future Scheduled 2022-03-25 INFLUENZA VACCINE Method [facility] Test 14:48:42 [code = INFLUENZA VACCINE] Future Scheduled 2022-03-25 SHINGLES VACCINES (1 Met [facility] Test 14:48:42 of 2) [code = SHINGLES VACCINES (1 of 2)] Future Scheduled 2022-03-[address] [facility] Test 14:48:42 SCREENING [code = BREAST CANCER SCREENING] Future Scheduled 2022-03-25 COLONOSCOPY SCREENING [facility] Test 14:48:42 [code = COLONOSCOPY SCREENING] Future Scheduled 2022-03-25 HEPATITIS B VACCINES Met [facility] Test 14:48:42 (1 of 3 - Risk 3-dose series) [code = HEPATITIS B VACCINES (1 of 3 - Risk 3-dose series)] Future Scheduled 2022-03-25 COVID-19 VACCINE (3 - [facility] Test 14:48:42 Booster for Pfizer series) [code = COVID-19 VACCINE (3 - Booster for Pfizer series)] Future Scheduled 2022-03-25 65+ [facility] 14:48:42 VACCINE (4 - PPSV23 if available, else PCV20) [code = 65+ PNEUMOCOCCAL VACCINE (4 - PPSV23 if available, else PCV20)] Future Scheduled 2022-03-25 INFLUENZA VACCINE Method [facility] Test 14:48:42 [code = INFLUENZA VACCINE] Future Scheduled 2022-03-25 SHINGLES VACCINES (1 Met [facility] Test 14:48:42 of 2) [code = SHINGLES VACCINES (1 of 2)] Future Scheduled 2022-03-[address] [facility] Test 14:48:42 SCREENING [code = BREAST CANCER SCREENING] Future Scheduled 2022-03-25 COLONOSCOPY SCREENING [facility] Test 14:48:42 [code = COLONOSCOPY SCREENING] Future Scheduled 2022-03-25 HEPATITIS B VACCINES Met [facility] Test 14:48:42 (1 of 3 - Risk 3-dose series) [code = HEPATITIS B VACCINES (1 of 3 - Risk 3-dose series)] Future Scheduled 2022-03-25 COVID-19 VACCINE (3 - [facility] Test 14:48:42 Booster for Pfizer series) [code = COVID-19 VACCINE (3 - Booster for Pfizer series)] Future Scheduled 2022-03-25 65+ [facility] 14:48:42 VACCINE (4 - PPSV23 if available, else PCV20) [code = 65+ PNEUMOCOCCAL VACCINE (4 - PPSV23 if available, else PCV20)] Future Scheduled 2022-03-25 INFLUENZA VACCINE Method [facility] Test 14:48:42 [code = INFLUENZA VACCINE] Future Scheduled 2022-03-25 SHINGLES VACCINES (1 Met [facility] Test 14:48:42 of 2) [code = SHINGLES VACCINES (1 of 2)] Future Scheduled 2022-03-[address] [facility] Test 14:48:42 SCREENING [code = BREAST CANCER SCREENING] Future Scheduled 2022-03-25 COLONOSCOPY SCREENING [facility] Test 14:48:42 [code = COLONOSCOPY SCREENING] Future Scheduled 2022-03-25 HEPATITIS B VACCINES Met [facility] Test 14:48:42 (1 of 3 - Risk 3-dose series) [code = HEPATITIS B VACCINES (1 of 3 - Risk 3-dose series)] Future Scheduled 2022-03-25 COVID-19 VACCINE (3 - [facility] Test 14:48:42 Booster for Pfizer series) [code = COVID-19 VACCINE (3 - Booster for Pfizer series)] Future Scheduled 2022-03-25 65+ [facility] 14:48:42 VACCINE (4 - PPSV23 if available, else PCV20) [code = 65+ PNEUMOCOCCAL VACCINE (4 - PPSV23 if available, else PCV20)] Future Scheduled 2022-03-25 INFLUENZA VACCINE Method [facility] Test 14:48:42 [code = INFLUENZA VACCINE] Future Scheduled 2022-03-25 SHINGLES VACCINES (1 Met [facility] Test 14:48:42 of 2) [code = SHINGLES VACCINES (1 of 2)] Future Scheduled 2022-03-[address] [facility] Test 14:48:42 SCREENING [code = BREAST CANCER SCREENING] Future Scheduled 2022-03-25 COLONOSCOPY SCREENING [facility] Test 14:48:42 [code = COLONOSCOPY SCREENING] Future Scheduled 2022-03-25 HEPATITIS B VACCINES Met [facility] Test 14:48:42 (1 of 3 - Risk 3-dose series) [code = HEPATITIS B VACCINES (1 of 3 - Risk 3-dose series)] Future Scheduled 2022-03-25 COVID-19 VACCINE (3 - [facility] Test 14:48:42 Booster for Pfizer series) [code = COVID-19 VACCINE (3 - Booster for Pfizer series)] Future Scheduled 2022-03-25 65+ [facility] 14:48:42 VACCINE (4 - PPSV23 if available, else PCV20) [code = 65+ PNEUMOCOCCAL VACCINE (4 - PPSV23 if available, else PCV20)] Future Scheduled 2022-03-25 INFLUENZA VACCINE [facility] Test 14:48:42 [code = INFLUENZA VACCINE] Future Scheduled 2022-03-25 SHINGLES VACCINES (1 Met [facility] Test 14:48:42 of 2) [code = SHINGLES VACCINES (1 of 2)] Future Scheduled 2022-03-[address] [facility] Test 14:48:42 SCREENING [code = BREAST CANCER SCREENING] Future Scheduled 2022-03-25 COLONOSCOPY SCREENING [facility] Test 14:48:42 [code = COLONOSCOPY SCREENING] Future Scheduled 2022-03-25 HEPATITIS B VACCINES Met [facility] Test 14:48:42 (1 of 3 - Risk 3-dose series) [code = HEPATITIS B VACCINES (1 of 3 - Risk 3-dose series)] Future Scheduled 2022-03-25 COVID-19 VACCINE (3 - [facility] Test 14:48:42 Booster for Pfizer series) [code = COVID-19 VACCINE (3 - Booster for Pfizer series)] Future Scheduled 2022-03-25 65+ PNEUMOCOCCAL [facility] Test 14:48:42 VACCINE (4 - PPSV23 if available, else PCV20) [code = 65+ PNEUMOCOCCAL VACCINE (4 - PPSV23 if available, else PCV20)] Future Scheduled 2022-03-25 INFLUENZA VACCINE [facility] Test 14:48:42 [code = INFLUENZA VACCINE] Future Scheduled 2022-03-25 SHINGLES VACCINES (1 Met [facility] Test 14:48:42 of 2) [code = SHINGLES VACCINES (1 of 2)] Future Scheduled 2022-03-[address] [facility] Test 14:48:42 SCREENING [code = BREAST CANCER SCREENING] Future Scheduled 2022-03-25 COLONOSCOPY SCREENING [facility] Test 14:48:42 [code = COLONOSCOPY SCREENING] Future Scheduled 2022-03-25 HEPATITIS B VACCINES Met [facility] Test 14:48:42 (1 of 3 - Risk 3-dose series) [code = HEPATITIS B VACCINES (1 of 3 - Risk 3-dose series)] Future Scheduled 2022-03-25 COVID-19 VACCINE (3 - [facility] Test 14:48:42 Booster for Pfizer series) [code = COVID-19 VACCINE (3 - Booster for Pfizer series)] Future Scheduled 2022-03-25 65+ [facility] 14:48:42 VACCINE (4 - PPSV23 if available, else PCV20) [code = 65+ PNEUMOCOCCAL VACCINE (4 - PPSV23 if available, else PCV20)] Future Scheduled 2022-03-25 INFLUENZA VACCINE [facility] Test 14:48:42 [code = INFLUENZA VACCINE] Future Scheduled 2022-03-04 SHINGLES VACCINES (1 Met [facility] Test 14:03:57 of 2) [code = SHINGLES VACCINES (1 of 2)] Future Scheduled 2022-03-[address] [facility] Test 14:03:57 SCREENING [code = BREAST CANCER SCREENING] Future Scheduled 2022-03-04 COLONOSCOPY SCREENING [facility] Test 14:03:57 [code = COLONOSCOPY SCREENING] Future Scheduled 2022-03-04 HEPATITIS B VACCINES Met [facility] Test 14:03:57 (1 of 3 - Risk 3-dose series) [code = HEPATITIS B VACCINES (1 of 3 - Risk 3-dose series)] Future Scheduled 2022-03-04 COVID-19 VACCINE (3 - [facility] Test 14:03:57 Booster for Pfizer series) [code = COVID-19 VACCINE (3 - Booster for Pfizer series)] Future Scheduled 2022-03-04 65+ [facility] Test 14:03:57 VACCINE (4 - PPSV23 if available, else PCV20) [code = 65+ PNEUMOCOCCAL VACCINE (4 - PPSV23 if available, else PCV20)] Future Scheduled 2022-03-04 INFLUENZA VACCINE [facility] Test 14:03:57 [code = INFLUENZA VACCINE] Future Scheduled 2022-03-04 SHINGLES VACCINES (1 Met [facility] Test 14:03:57 of 2) [code = SHINGLES VACCINES (1 of 2)] Future Scheduled 2022-03-[address] [facility] Test 14:03:57 SCREENING [code = BREAST CANCER SCREENING] Future Scheduled 2022-03-04 COLONOSCOPY SCREENING [facility] Test 14:03:57 [code = COLONOSCOPY SCREENING] Future Scheduled 2022-03-04 HEPATITIS B VACCINES Met [facility] Test 14:03:57 (1 of 3 - Risk 3-dose series) [code = HEPATITIS B VACCINES (1 of 3 - Risk 3-dose series)] Future Scheduled 2022-03-04 COVID-19 VACCINE (3 - [facility] Test 14:03:57 Booster for Pfizer series) [code = COVID-19 VACCINE (3 - Booster for Pfizer series)] Future Scheduled 2022-03-04 65+ [facility]AL [facility] Test 14:03:57 VACCINE (4 - PPSV23 if available, else PCV20) [code = 65+ PNEUMOCOCCAL VACCINE (4 - PPSV23 if available, else PCV20)] Future Scheduled 2022-03-04 INFLUENZA VACCINE [facility] Test 14:03:57 [code = INFLUENZA VACCINE] Future Scheduled 2022-03-04 SHINGLES VACCINES (1 Met [facility] Test 14:03:57 of 2) [code = SHINGLES VACCINES (1 of 2)] Future Scheduled 2022-03-[address] [facility] Test 14:03:57 SCREENING [code = BREAST CANCER SCREENING] Future Scheduled 2022-03-04 COLONOSCOPY SCREENING [facility] Test 14:03:57 [code = COLONOSCOPY SCREENING] Future Scheduled 2022-03-04 HEPATITIS B VACCINES Met [facility] Test 14:03:57 (1 of 3 - Risk 3-dose series) [code = HEPATITIS B VACCINES (1 of 3 - Risk 3-dose series)] Future Scheduled 2022-03-04 COVID-19 VACCINE (3 - [facility] Test 14:03:57 Booster for Pfizer series) [code = COVID-19 VACCINE (3 - Booster for Pfizer series)] Future Scheduled 2022-03-04 65+ PNEUMOCOCCAL [facility] Test 14:03:57 VACCINE (4 - PPSV23 if available, else PCV20) [code = 65+ PNEUMOCOCCAL VACCINE (4 - PPSV23 if available, else PCV20)] Future Scheduled 2022-03-04 INFLUENZA VACCINE [facility] Test 14:03:57 [code = INFLUENZA VACCINE] Future Scheduled 2022-03-04 SHINGLES VACCINES (1 Met [facility] Test 14:03:57 of 2) [code = SHINGLES VACCINES (1 of 2)] Future Scheduled 2022-03-[address] [facility] Test 14:03:57 SCREENING [code = BREAST CANCER SCREENING] Future Scheduled 2022-03-04 COLONOSCOPY SCREENING [facility] Test 14:03:57 [code = COLONOSCOPY SCREENING] Future Scheduled 2022-03-04 HEPATITIS B VACCINES Met [facility] Test 14:03:57 (1 of 3 - Risk 3-dose series) [code = HEPATITIS B VACCINES (1 of 3 - Risk 3-dose series)] Future Scheduled 2022-03-04 COVID-19 VACCINE (3 - [facility] Test 14:03:57 Booster for Pfizer series) [code = COVID-19 VACCINE (3 - Booster for Pfizer series)] Future Scheduled 2022-03-04 65+ [facility]AL [facility] 14:03:57 VACCINE (4 - PPSV23 if available, else PCV20) [code = 65+ PNEUMOCOCCAL VACCINE (4 - PPSV23 if available, else PCV20)] Future Scheduled 2022-03-04 INFLUENZA VACCINE Method [facility] Test 14:03:57 [code = INFLUENZA VACCINE] Future Scheduled 2022-02-11 SHINGLES VACCINES (1 Met [facility] Test 13:39:12 of 2) [code = SHINGLES VACCINES (1 of 2)] Future Scheduled 2022-02-[address] [facility] Test 13:39:12 SCREENING [code = BREAST CANCER SCREENING] Future Scheduled 2022-02-11 COLONOSCOPY SCREENING [facility] Test 13:39:12 [code = COLONOSCOPY SCREENING] Future Scheduled 2022-02-11 HEPATITIS B VACCINES Met [facility] Test 13:39:12 (1 of 3 - Risk 3-dose series) [code = HEPATITIS B VACCINES (1 of 3 - Risk 3-dose series)] Future Scheduled 2022-02-11 COVID-19 VACCINE (3 - [facility] Test 13:39:12 Booster for Pfizer series) [code = COVID-19 VACCINE (3 - Booster for Pfizer series)] Future Scheduled 2022-02-11 65+ P[facility]UMOCOCCAL [facility] Test 13:39:12 VACCINE (4 - PPSV23 or PCV20) [code = 65+ PNEUMOCOCCAL VACCINE (4 - PPSV23 or PCV20)] Future Scheduled 2022-02-11 INFLUENZA VACCINE Method [facility] Test 13:39:12 [code = INFLUENZA VACCINE] Future Scheduled 2022-01-29 SHINGLES VACCINES (1 Met [facility] Test 14:07:20 of 2) [code = SHINGLES VACCINES (1 of 2)] Future Scheduled 2022-01-[address] [facility] Test 14:07:20 SCREENING [code = BREAST CANCER SCREENING] Future Scheduled 2022-01-29 COLONOSCOPY SCREENING [facility] Test 14:07:20 [code = COLONOSCOPY SCREENING] Future Scheduled 2022-01-29 HEPATITIS B VACCINES Met [facility] Test 14:07:20 (1 of 3 - Risk 3-dose series) [code = HEPATITIS B VACCINES (1 of 3 - Risk 3-dose series)] Future Scheduled 2022-01-29 COVID-19 VACCINE (3 - [facility] Test 14:07:20 Booster for Pfizer series) [code = COVID-19 VACCINE (3 - Booster for Pfizer series)] Future Scheduled 2022-01-29 65+ PNEUMOCOCCAL [facility] Test 14:07:20 VACCINE (4 - PPSV23 or PCV20) [code = 65+ PNEUMOCOCCAL VACCINE (4 - PPSV23 or PCV20)] Future Scheduled 2022-01-29 INFLUENZA VACCINE Method [facility] Test 14:07:20 [code = INFLUENZA VACCINE] Future Scheduled 2022-01-29 SHINGLES VACCINES (1 Met [facility] Test 14:07:20 of 2) [code = SHINGLES VACCINES (1 of 2)] Future Scheduled 2022-01-[address] [facility] Test 14:07:20 SCREENING [code = BREAST CANCER SCREENING] Future Scheduled 2022-01-29 COLONOSCOPY SCREENING [facility] Test 14:07:20 [code = COLONOSCOPY SCREENING] Future Scheduled 2022-01-29 HEPATITIS B VACCINES Met [facility] Test 14:07:20 (1 of 3 - Risk 3-dose series) [code = HEPATITIS B VACCINES (1 of 3 - Risk 3-dose series)] Future Scheduled 2022-01-29 COVID-19 VACCINE (3 - [facility] Test 14:07:20 Booster for Pfizer series) [code = COVID-19 VACCINE (3 - Booster for Pfizer series)] Future Scheduled 2022-01-29 65+ PNEUMOCOCCAL [facility] Test 14:07:20 VACCINE (4 - PPSV23 or PCV20) [code = 65+ PNEUMOCOCCAL VACCINE (4 - PPSV23 or PCV20)] Future Scheduled 2022-01-29 INFLUENZA VACCINE Method [facility] Test 14:07:20 [code = INFLUENZA VACCINE] Future Scheduled 2022-01-29 SHINGLES VACCINES (1 Met [facility] Test 14:07:20 of 2) [code = SHINGLES VACCINES (1 of 2)] Future Scheduled 2022-01-[address] [facility] Test 14:07:20 SCREENING [code = BREAST CANCER SCREENING] Future Scheduled 2022-01-29 COLONOSCOPY SCREENING [facility] Test 14:07:20 [code = COLONOSCOPY SCREENING] Future Scheduled 2022-01-29 HEPATITIS B VACCINES Met [facility] Test 14:07:20 (1 of 3 - Risk 3-dose series) [code = HEPATITIS B VACCINES (1 of 3 - Risk 3-dose series)] Future Scheduled 2022-01-29 COVID-19 VACCINE (3 - [facility] Test 14:07:20 Booster for Pfizer series) [code = COVID-19 VACCINE (3 - Booster for Pfizer series)] Future Scheduled 2022-01-29 65+ PNEUMOCOCCAL [facility] Test 14:07:20 VACCINE (4 - PPSV23 or PCV20) [code = 65+ PNEUMOCOCCAL VACCINE (4 - PPSV23 or PCV20)] Future Scheduled 2022-01-29 INFLUENZA VACCINE Method [facility] Test 14:07:20 [code = INFLUENZA VACCINE] Future Scheduled 2022-01-29 SHINGLES VACCINES (1 Met [facility] Test 14:07:20 of 2) [code = SHINGLES VACCINES (1 of 2)] Future Scheduled 2022-01-[address] [facility] Test 14:07:20 SCREENING [code = BREAST CANCER SCREENING] Future Scheduled 2022-01-29 COLONOSCOPY SCREENING [facility] Test 14:07:20 [code = COLONOSCOPY SCREENING] Future Scheduled 2022-01-29 HEPATITIS B VACCINES Met [facility] Test 14:07:20 (1 of 3 - Risk 3-dose series) [code = HEPATITIS B VACCINES (1 of 3 - Risk 3-dose series)] Future Scheduled 2022-01-29 COVID-19 VACCINE (3 - [facility] Test 14:07:20 Booster for Pfizer series) [code = COVID-19 VACCINE (3 - Booster for Pfizer series)] Future Scheduled 2022-01-29 65+ PNEUMOCOCCAL [facility] Test 14:07:20 VACCINE (4 - PPSV23 or PCV20) [code = 65+ PNEUMOCOCCAL VACCINE (4 - PPSV23 or PCV20)] Future Scheduled 2022-01-29 INFLUENZA VACCINE Method [facility] Test 14:07:20 [code = INFLUENZA VACCINE] Future Scheduled 2022-01-20 SHINGLES VACCINES (1 Met [facility] Test 06:12:34 of 2) [code = SHINGLES VACCINES (1 of 2)] Future Scheduled 2022-01-[address] [facility] Test 06:12:34 malignant neoplasm of cervix (procedure) [code = [id number]] Future Scheduled 2022-01-[address] [facility] Test 06:12:34 SCREENING [code = BREAST CANCER SCREENING] Future Scheduled 2022-01-20 COLONOSCOPY SCREENING [facility] Test 06:12:34 [code = COLONOSCOPY SCREENING] Future Scheduled 2022-01-20 HEPATITIS B VACCINES Met [facility] Test 06:12:34 (1 of 3 - Risk 3-dose series) [code = HEPATITIS B VACCINES (1 of 3 - Risk 3-dose series)] Future Scheduled 2022-01-20 COVID-19 VACCINE (3 - [facility] Test 06:12:34 Booster for Pfizer series) [code = COVID-19 VACCINE (3 - Booster for Pfizer series)] Future Scheduled 2022-01-20 65+ PNEUMOCOCCAL [facility] Test 06:12:34 VACCINE (4 - PPSV23 or PCV20) [code = 65+ PNEUMOCOCCAL VACCINE (4 - PPSV23 or PCV20)] Future Scheduled 2022-01-20 INFLUENZA VACCINE Method [facility] Test 06:12:34 [code = INFLUENZA VACCINE] Future Scheduled 2022-01-16 SHINGLES VACCINES (1 Met [facility] Test 12:09:25 of 2) [code = SHINGLES VACCINES (1 of 2)] Future Scheduled 2022-01-[address] [facility] Test 12:09:25 malignant neoplasm of cervix (procedure) [code = 659695143] Future Scheduled 2022-01-[address] [facility] Test 12:09:25 SCREENING [code = BREAST CANCER SCREENING] Future Scheduled 2022-01-16 COLONOSCOPY SCREENING [facility] Test 12:09:25 [code = COLONOSCOPY SCREENING] Future Scheduled 2022-01-16 HEPATITIS B VACCINES Met [facility] Test 12:09:25 (1 of 3 - Risk 3-dose series) [code = HEPATITIS B VACCINES (1 of 3 - Risk 3-dose series)] Future Scheduled 2022-01-16 COVID-19 VACCINE (3 - [facility] Test 12:09:25 Booster for Pfizer series) [code = COVID-19 VACCINE (3 - Booster for Pfizer series)] Future Scheduled 2022-01-16 65+ PNEUMOCOCCAL [facility] Test 12:09:25 VACCINE (4 - PPSV23 or PCV20) [code = 65+ PNEUMOCOCCAL VACCINE (4 - PPSV23 or PCV20)] Future Scheduled 2022-01-16 INFLUENZA VACCINE Method [facility] Test 12:09:25 [code = INFLUENZA VACCINE] Future Scheduled 2022-01-14 SHINGLES VACCINES (1 Met [facility] Test 04:11:46 of 2) [code = SHINGLES VACCINES (1 of 2)] Future Scheduled 2022-01-[address] [facility] Test 04:11:46 malignant neoplasm of cervix (procedure) [code = [id number]] Future Scheduled 2022-01-[address] [facility] Test 04:11:46 SCREENING [code = BREAST CANCER SCREENING] Future Scheduled 2022-01-14 COLONOSCOPY SCREENING [facility] Test 04:11:46 [code = COLONOSCOPY SCREENING] Future Scheduled 2022-01-14 HEPATITIS B VACCINES Met [facility] Test 04:11:46 (1 of 3 - Risk 3-dose series) [code = HEPATITIS B VACCINES (1 of 3 - Risk 3-dose series)] Future Scheduled 2022-01-14 COVID-19 VACCINE (3 - [facility] Test 04:11:46 Booster for Pfizer series) [code = COVID-19 VACCINE (3 - Booster for Pfizer series)] Future Scheduled 2022-01-14 65+ PNEUMOCOCCAL [facility] Test 04:11:46 VACCINE (4 - PPSV23 or PCV20) [code = 65+ PNEUMOCOCCAL VACCINE (4 - PPSV23 or PCV20)] Future Scheduled 2022-01-14 INFLUENZA VACCINE Method [facility] Test 04:11:46 [code = INFLUENZA VACCINE] Future Scheduled 2021-08-[address] [facility] Test 13:02:23 malignant neoplasm of cervix (procedure) [code = [id number]] Future Scheduled 2021-08-[address] [facility] Test 13:02:23 SCREENING [code = BREAST CANCER SCREENING] Future Scheduled 2021-08-26 COLONOSCOPY SCREENING [facility] Test 13:02:23 [code = COLONOSCOPY SCREENING] Future Scheduled 2021-08-[address] [facility] Test 13:02:23 malignant neoplasm of lung (procedure) [code = [id number]] Future Scheduled 2021-08-26 SHINGLES VACCINES (#1) [facility] Test 13:02:23 [code = SHINGLES VACCINES (#1)] Future Scheduled 2021-08-26 COVID-19 VACCINE (3 - [facility] Test 13:02:23 Pfizer risk 4-dose series) [code = COVID-19 VACCINE (3 - Pfizer risk 4-dose series)] Future Scheduled 2021-08-26 65+ [facility]OCOCCAL [facility] Test 13:02:23 VACCINE (4 of 4 - PPSV23) [code = 65+ PNEUMOCOCCAL VACCINE (4 of 4 - PPSV23)] Future Scheduled 2021-08-26 INFLUENZA VACCINE Method [facility] Test 13:02:23 [code = INFLUENZA VACCINE] Encounters Start End Encounter Admission Attending Care Care Encounter Source Date/Time Date/Time Type Type Clinicians Facility Department ID 2022-02-18 Outpatient CHW CHW [id number] [place] 14:30:[address] [place] [address] 2021-07-14 Outpatient SADIKOVIC, [facility] [id number] [place] 09:33:51 [facility] 2021-06-02 Outpatient HEMATPOUR, [facility] [id number] [place] 13:58:59 [facility] 2021-04-28 Outpatient HEMATPOUR, [facility] [id number] [place] 11:21:22 [facility] 2021-03-20 Emergency [facility] [id number] Univers 16:07:40 ity [facility] 2020-12-12 Outpatient HEMATPOUR, [facility] [id number] [place] 08:16:46 KHASHAYAR Healt 2020-10-31 Outpatient HEMATPOUR, [facility] [id number] [place] 09:44:50 [facility] Healt [facility] 2020-09-30 Outpatient HEMATPOUR, [facility] [id number] [place] 13:16:03 [facility] 2022-09-03 2022-09-03 Outpatient R EAST, [facility] [id number] Univers 11:00:00 11:00:00 SANTIAGO ity [facility] 2022-08-24 2022-08-24 Refill Ronald, 1.2.840.4 [id number] Univers 00:00:00 00:00:00 [place] [facility]69.1.1 [facility] 3.104.2.7 [place] .3.227761 Medica l .8 [place] 2022-05-20 2022-05-20 Telephone Ronald, UNIVERSIT 1.2.840.114 [id number] Univers 00:00:00 00:00:00 [facility] 350.1.13.10 i ty [id number] [address] 2022-05-10 2022-05-10 Emergency [facility] [id number] Univers 10:30:00 16:31:00 HOME ity [facility] 2022-05-10 2022-05-10 Emergency Byron, TRAUMA 1.2.840.114 [id number] Univers 10:30:00 16:31:00 [facility] 350.1.13.10 [place] [id number] [address] 2022-05-10 2022-05-10 Telephone [facility] 1.2.840.114 [id number] Univers 00:00:00 00:00:00 [facility] 350.1.13.10 i [place] [id number] [address] 2022-05-08 2022-05-08 Emergency [facility] [id number] Univers 16:18:00 18:42:00 THERESA [facility] 2022-05-08 2022-05-08 [facility] 1.2.840.114 [id number] Univers 16:18:00 18:42:00 Theresa BULLOCK 350.1.13.10 ity [place] [id number] [address] 2022-05-07 2022-05-07 Telephone [facility] 1.2.840.114 [id number] Univers 00:00:00 00:00:00 [facility] 350.1.13.10 i [place] [id number] [address] 2022-05-06 2022-05-06 Emergency [facility] [id number] Univers 14:13:00 18:19:00 ANETTE [facility] 2022-05-06 2022-05-06 Emergency [facility] 1.2.239.218 [id number] Univers 14:13:00 18:19:00 Anette BULLOCK 350.1.13.10 ity [facility] 4.2.7.2.686 [facility] [phone] [address] 2022-05-06 2022-05-06 Telephone JOSÉ ANTONIO Cardenas 1.2.840.114 [id number] Univers 00:00:00 00:00:00 [facility] 350.1.13.10 i ty of [facility] 4.2.7.2.686 [facility] [id number] [address] 2022-04-22 2022-04-22 Emergency X [facility] ERT [id number] Univers 13:55:00 17:00:00 [facility]-22 2022-04-22 Emergency [facility] 1.2.081.387 [id number] Univers 13:55:00 17:00:00 Paulette Bach KOBE 350.1.13.10 i ty of [place] 4.2.7.2.686 [facility] [id number] [address] 2022-04-07 2022-04-07 Outpatient R [facility] [id number] Univers 20:40:00 20:40:00 ATTENDING ity of [facility] 2022-04-07 2022-04-07 Telephone Devin, 1.2.840.7 [id number] Univers 00:00:00 00:00:00 Robbi Hairston 81371.1.1 i ty of 3.104.2.7 [place] .3.503964 Medica l .8 [place] 2022-03-05 2022-03-05 Quoter Santiago Cardenas 1.2.840.1 [id number] Univers 13:45:00 14:00:00 Visit [facility] 89065.1.1 ity of 3.104.2.7 [place] .3.052770 Medica l .8 [place] 2022-03-05 2022-03-05 Office JOSÉ ANTONIO Cardenas 1.2.985.911 [id number] Univers 13:00:00 13:30:00 Visit Santiago Y HEALTH 350.1.13.10 i ty of CLINICS 4.2.7.2.686 Richi bach [id number] [facility] [address] [place] 2022-03-05 2022-03-05 Outpatient R [facility] [id number] Univers 13:00:00 13:00:00 SANTIAGO [facility] 2022-02-26 2022-02-26 Outpatient R [facility] [id number] Univers 08:30:00 08:30:00 [facility] 2022-02-26 2022-02-26 Outpatient R [facility] [id number] Univers 08:30:00 08:30:00 [facility] 2022-02-17 2022-02-17 Transition Stevo, 1.2.840.7 [id number] Univers 00:00:00 00:00:00 of Care Isaias Arredondo 42699.1.1 it y of 3.104.2.7 [place] .3.665281 Medica l .[address] [place] [address] 2022-02-10 2022-02-16 Inpatient X [facility] [id number] Univers 22:59:00 19:27:00 TOMY [facility] 2022-02-10 2022-02-16 Hospital Reilly Means 1.2.840.1 [id number] Univers 22:59:00 19:27:00 Encounter Ofe Shields 46976.1.1 ity of [place] 3.104.2.7 [place] .3.571882 Medica l .8 [place] 2022-02-11 2022-02-11 Telephone [facility], 1.2.840.8 [id number] Univers 00:00:00 00:00:00 Santiago 63221.1.1 ity of 3.104.2.7 [place] .3.429933 Medica l .8 [place] 2022-02-10 2022-02-10 Travel 1.2.840.1 1.2.362.089 [id number] Univers 00:00:00 00:00:00 23303.1.1 350.1.13.10 ity of 3.104.2.7 4[place]7.3.698 [place] .3.156835 084.8 Medica l .8 [place] 2022-01-30 2022-01-30 Telephone Ronald, 1.2.840.9 [id number] Univers 00:00:00 00:00:00 [place] 31527.1.1 ity of 3.104.2.7 [place] .3.505681 Medica l .8 [place] 2022-01-06 2022-01-06 Orders Doctor FERMIN 1.2.840.114 [id number] Univers 00:00:00 00:00:00 Only Unassigned, JACKELINE 350.1.13.10 ity of [place] [facility] 4.2.7.2.686 Yomi as [id number] [facility] [address] [place] 2021-12-25 2021-12-25 Orders Doctor FERMIN 1.2.840.114 [id number] Univers 00:00:00 00:00:00 Only Unassigned, JACKELINE 350.1.13.10 ity of [place] [facility] 4.2.7.2.686 Yomi as [id number] [facility] 00[address] [place] 2021-12-12 2021-12-13 Emergency X Bill COLES [facility] ERT [id number] Univers 23:53:00 01:52:00 ity of [facility] 2021-12-12 2021-12-13 Emergency Bill Coles [facility] 1.2.840.114 [id number] Univers 23:53:00 01:52:00 Kiersten BULLOCK 350.1.13.10 i ty of [place] [id number] [facility] 084 [place] 2021-11-20 2021-11-20 Quoter [facility] UNIVERSIT 1.2.840.114 [id number] Univers 09:45:00 10:00:00 Visit Santiago Cardenas [facility] 350.1.13.10 ity of CL[place] [phone] [facility] [address] 2021-11-20 2021-11-20 Office [facility] 1.2.993.594 [id number] Univers 08:30:00 09:00:00 Visit [facility] 350.1.13.10 [facility] 4.2.7.2.686 [facility] [id number] [address] 2021-11-20 2021-11-20 Outpatient R [facility] [id number] Univers 08:30:00 08:30:00 [facility] 2021-11-20 2021-11-20 Outpatient R [facility] [id number] Univers 08:30:00 08:30:00 [facility] 2021-11-20 2021-11-20 Outpatient R [facility] [id number] Univers 08:30:00 08:30:00 [facility] 2021-11-20 2021-11-20 Outpatient R [facility] [id number] Univers 08:30:00 08:30:00 [facility] 2021-10-24 2021-10-24 Emergency [facility] ERT [id number] Univers 16:27:00 22:26:00 [facility] 2021-10-24 2021-10-24 Emergency [facility] [id number] Univers 16:27:00 22:26:00 [facility] 2021-10-24 2021-10-24 Emergency Reilly Means [facility] 1.2.840. 114 [id number] Univers 16:27:00 22:26:00 Charity Mcallister 350.1.13.10 [facility] 4.2.7.2.686 [facility] [id number] [address] 2021-10-23 2021-10-24 Emergency [facility] ERT [id number] Univers 20:22:00 [facility]:57[facility] 2021-10-23 2021-10-24 [facility] 1..481.289 [id number] Univers 20:22:00 02:57:00 Charity BULLOCK 350.1.13.10 ity of [place] 4.2.7.2.686 [place] [facility] [id number] [facility] [address] [place] 2021-09-07 2021-09-07 Outpatient R [facility] [id number] Univers 08:00:00 08:00:00 GADIEL barbosa o f [facility] 2021-09-07 2021-09-07 Outpatient R [facility] [id number] Univers 08:00:00 08:00:00 GADIEL ity o f [facility] 2021-08-21 2021-08-21 Outpatient R [facility] [id number] Univers 10:45:00 10:45:00 SANTIAGO [facility] 2021-08-21 2021-08-21 Quoter Santiago Cardenas 1.2.840.1 [id number] Univers 10:45:00 10:45:00 Visit [facility] 97750.1.1 ity of 3.104.2.7 [place] .3.549727 Medica l .8 [place] 2021-08-21 2021-08-21 Office Ronald, 1.2.840.7 [id number] Univers 08:30:00 09:00:00 Visit Santiago 89978.1.1 ity of 3.104.2.7 [place] .3.632581 Medica l .8 [place] 2021-08-21 2021-08-21 Office [facility], UNIVERSIT 1.2.162.077 [id number] Univers 08:30:00 09:00:00 Visit Santiago [facility] 350.1.13.10 i ty of [facility] 4.2.7.2.686 [facility] [id number] [facility] [address] [place] 2021-08-21 2021-08-21 [facility] [id number] Univers 08:30:00 08:30:00 SANTIAGO barbosa [facility] 2021-08-21 2021-08-21 Travel 1.2.840.1 1.2.588.390 [id number] Univers 00:00:00 00:00:00 18455.1.1 350.1.13.10 ity of 3.104.2.7 4[place].3.698 [place] .3.101513 084.8 Medica l .8 [place] 2021-08-14 2021-08-14 Telephone [place], 1.2.840.9 [id number] Univers 00:00:00 00:00:00 [place] 04476.1.1 ity of 3.104.2.7 [place] .3.651636 Medica l .8 [place] 2021-08-13 2021-08-13 Telephone [place], 1.2.840.7 [id number] Univers 00:00:00 00:00:00 Santiago 24672.1.1 ity of 3.104.2.7 [place] .3.029880 Medica l .8 [place] 2021-08-11 2021-08-11 Outpatient [facility] [id number] Univers 08:00:00 08:00:00 [facility] 2021-08-05 2021-08-05 Inpatient Ashely, [facility] [id number] [facility] 05:24:00 05:24:00 Mike 31 [facility] 2021-07-20 2021-07-20 Outpatient [facility] [id number] Univers 10:00:00 10:00:00 [facility] 2021-07-14 2021-07-14 Office Pankaj, KIMBERLEY 6400 1.2.840.114 [id number] [place] 08:45:00 09:34:[address] 350.1.13.58 Health 9.2.7.2.686 [id number] 1 2021-07-09 2021-07-09 Telephone [facility], [facility] 6400 1.2.840.114 [id number] [place] 00:00:00 00:00:[address] 350.1.13.58 Health 9.2.7.2.686 [id number] 1 2021-07-09 2021-07-09 Telephone [facility], [facility] 6400 1.2.840.114 [id number] [place] 00:00:00 00:00:00 Beverly RUIZ 350.1.13.58 Health 9.2.7.2.686 [id number] 1 2021-07-03 2021-07-03 Outpatient R EAST, [facility] [id number] Univers 08:00:00 08:00:00 SANTIAGO barbosa [facility] 2021-06-17 2021-06-17 Inpatient RAUL Lund, [facility] INTE.02 [id number] [facility] 10:56:00 14:36:00 Mike 47 [facility] 2021-06-15 2021-06-15 Outpatient R SELF, [facility] [id number] Univers 10:15:00 11:07:21 GADIEL vogel [facility] 2021-06-15 2021-06-15 Outpatient R SELF, [facility] [id number] Univers 10:15:00 10:15:00 GADIELKEI vogel [facility] 2021-06-15 2021-06-15 Outpatient R SELF, [facility] [id number] Univers 10:15:00 10:15:00 GADIEL vogel [facility] 2021-06-15 2021-06-15 Orders Doctor 1.2.840.0 [id number] Univers 00:00:00 00:00:00 Only Unassigned, 19805.1.1 ity of [place] 3.104.2.7 [place] .3.467166 Medica l .8 [place] 2021-06-15 2021-06-15 Travel 1.2.840.1 1.2.592.983 [id number] Univers 00:00:00 00:00:00 24348.1.1 350.1.13.10 ity of 3.104.2.7 4.[place].3.698 [place] .3.528256 084.8 Medica l .8 [place] 2021-06-11 2021-06-11 Refill [place], UNIVERSIT 1.2.219.428 [id number] Univers 00:00:00 00:00:00 [place] [facility] 350.1.13.10 i ty [place] [id number] [facility] [address] 2021-06-11 2021-06-11 Refill [place], 1.2.840.9 [id number] Univers 00:00:00 00:00:00 [place] 37492.1.1 ity of 3.104.2.7 [place] .3.310378 Medica l .8 [place] 2021-06-05 2021-06-05 Outpatient R [facility] [id number] Univers 09:00:00 09:00:00 [place] ity of [facility] 2021-06-02 2021-06-02 Telephone [place], UNIVERSIT 1.2.840.114 [id number] Univers 00:00:00 00:00:00 Santiago [facility] 350.1.13.10 i ty of [facility] 4[place]2.7.2.[place] [id number] 947379 [place] 2021-06-02 2021-06-02 Telephone [place], 1.2.840.3 [id number] Univers 00:00:00 00:00:00 [place] 59034.1.1 ity of 3.104.2.7 [place] .3.516397 Medica l .8 [place] 2021-05-29 2021-05-29 Telephone [place], 1.2.840.6 [id number] Univers 00:00:00 00:00:00 [place] 48217.1.1 ity of 3.104.2.7 [place] .3.754350 Medica l .8 [place] 2021-05-29 2021-05-29 Telephone [place], 1.2.840.1 [id number] Univers 00:00:00 00:00:00 [place] 65517.1.1 ity of 3.104.2.7 [place] .3.078353 Medica l .8 [place] 2021-05-25 2021-05-25 [facility] [id number] Univers 08:00:00 08:00:00 GADIEL rodas [facility] 2021-04-29 2021-04-29 [facility] [id number] Univers 08:00:00 08:00:00 NIKOLAI familia [facility] 2021-04-28 2021-04-28 Telephone KIMBERLEY De Souza 6400 1.2.840.114 [id number] [place] 00:00:00 00:00:[address] 350.1.13.58 Health 9.2.7.2.686 [id number] 1 2021-04-28 2021-04-28 Telephone Jailyn, 1.2.840.1 [id number] 21 [id number] Methodi 00:00:00 00:00:[address] 3.430.2.7 Hospit a .3.136804 l .8 2021-03-31 2021-03-31 Orders Carol Ann, 1.2.840.1 [id number] 21 [id number] Methodi 00:00:00 00:00:00 Only Sarai Lieberman 40669.1.1 979 s t 3.430.2.7 Hospit a .3.537554 l .8 2021-03-30 2021-03-30 Outpatient R RODO, [facility] [id number] Univers 08:45:00 08:45:00 GADIEL rodas [facility] 2021-03-24 2021-03-24 Telephone Jailyn, 1.2.840.0 [id number] 21 [id number] Methodi 00:00:00 00:00:[address] 3.430.2.7 Hospit a .3.775650 l .8 2021-02-13 2021-02-13 Telephone Ronald, 1.2.840.6 [id number] 876 42216 Univers 00:00:00 00:00:00 Santiago 82812.1.1 ity 3.104.2.7 [place] [facility]3.304739 Medica l .8 Branch 2021-01-28 2021-01-28 Outpatient R LALA, [facility] [id number] 145 Univers 08:45:00 09:37:00 NIKOLAI familia [facility] 2021-01-28 2021-01-28 Travel 1.2.840.1 1.2.493.030 0869 9777 Univers 00:00:00 00:00:00 40943.1.1 350.1.13.10 ity of 3.104.2.7 [place].7.3.698 [place] .3.432611 084.8 Medica l .8 Branch 2021-01-19 2021-01-19 Telephone Prabhu, 1.2.840.1 [id number] 2100 904248 Method 00:00:00 00:00:[address] 3.430.2.7 Hospit a .3.554181 l .8 2021-01-04 2021-01-04 Dmitry Bass, 1.2.840.8 [id number] 52840 696 Univers 00:00:00 00:00:00 (Out) Dagoberto H 51340.1.1 ity of 3.104.2.7 [place] .3.522757 Medica l .8 Branch 2021-01-04 2021-01-04 Dmitry Bass, 1.2.840.7 [id number] 30830 696 Univers 00:00:00 00:00:00 (Out) Dagoberto H 85894.1.1 ity of 3.104.2.7 [place] .3.823980 Medica l .8 Branch 2021-01-03 2021-01-03 Dmitry Bass, 1.2.840.8 [id number] 31403 790 Univers 00:00:00 00:00:00 (Out) Dagoberto H 85350.1.1 ity of 3.104.2.7 [place] .3.030028 Medica l .8 Branch 2021-01-03 2021-01-03 Letter Shelia, 1.2.840.9 [id number] 35355 790 Univers 00:00:00 00:00:00 (Out) Dagoberto H 88706.1.1 ity of 3.104.2.7 [place] .3.496732 Medica l .8 Branch 2021-01-02 2021-01-02 Outpatient R [facility] [id number] 786 Univers 13:40:00 13:40:00 ity of [facility] 2021-01-02 2021-01-02 Laboratory Cuba Franks 1.2.840.8 [id number] [id number] Univers 12:14:13 12:57:34 Only Lab, [facility] Fam Pob I 19677.1.1 ity of 3.104.2.7 [place] .3.360543 Medica l .8 [place] 2021-01-02 2021-01-02 Laboratory Cuba Franks 1.2.840.7 [id number] 3204 [id number] Univers 12:14:13 12:57:34 Only Lab, [facility] [place] 31140.1.1 ity of 3.104.2.7 [place] .3.893917 Medica l .8 [place] 2021-01-02 2021-01-02 Travel 1.2.840.1 1.2.561.973 3359 2306 Univers 00:00:00 00:00:00 17785.1.1 350.1.13.10 ity of 3.104.2.7 4.2.7.3.698 [place] .3.338095 084.8 Medica l .8 [place] 2021-01-02 2021-01-02 Letter Doctor 1.2.840.3 [id number] 10352 948 Univers 00:00:00 00:00:00 (Out) Unassigned, 46970.1.1 ity of [place] 3.104.2.7 [place] .3.627515 Medica l .8 [place] 2021-01-02 2021-01-02 Letter Doctor 1.2.840.1 [id number] 75993 946 Univers 00:00:00 00:00:00 (Out) Unassigned, 67076.1.1 ity of [place] 3.104.2.7 [place] .3.113326 Medica l .8 [place] 2021-01-02 2021-01-02 Travel 1.2.840.1 1.2.185.968 3870 2306 Univers 00:00:00 00:00:00 47373.1.1 350.1.13.10 ity of 3.104.2.7 4.2.7.3.698 [place] .3.062359 084.8 Medica l .8 [place] 2021-01-02 2021-01-02 Letter Doctor 1.2.840.6 [id number] 17307 948 Univers 00:00:00 00:00:00 (Out) Unassigned, 37059.1.1 ity of [place] 3.104.2.7 [place] .3.996240 Medica l .8 [place] 2021-01-02 2021-01-02 Letter Doctor 1.2.840.3 [id number] 47514 946 Univers 00:00:00 00:00:00 (Out) Unassigned, 54744.1.1 ity of [place] 3.104.2.7 [place] .3.462741 Medica l .8 [place] 2020-12-22 2020-12-22 Telephone Beltran, 1.2.840.0 [id number] 862 60392 Univers 00:00:00 00:00:00 Eligionda R 38052.1.1 i ty of 3.104.2.7 [place] .3.046123 Medica l .8 [place] 2020-12-22 2020-12-22 Telephone Beltran, 1.2.840.7 [id number] 862 29556 Univers 00:00:00 00:00:00 Roshunda R 30816.1.1 i ty of 3.104.2.7 [place] .3.117563 Medica l .8 [place] 2020-12-12 2020-12-12 Office Hematpour, UTP 6400 1.2.840.114 12 [id number] [place] 07:42:02 08:18:[address] 350.1.13.58 Health 9.2.7.2.686 [id number] 1 2020-12-12 2020-12-12 Office Hematpour, UTP 6400 1.2.840.114 12 [id number] 07:42:02 08:18:[address] 350.1.13.58 9.2.7.2.686 [id number] 1 2020-12-09 2020-12-09 Telephone [facility], 1.2.840.1 [id number] Methodi 00:00:00 00:00:00 Sarai Lieberman 23694.1.1 316 s t 3.430.2.7 Hospit a .3.665994 l .8 2020-12-08 2020-12-08 [facility], 1.2.840.1 [id number] 2100 522395 Methodi 12:35:54 23:59:00 Encounter Ray 75021.1.[address] 3.430.2.7 Hospit a .3.191502 l .8 2020-12-08 2020-12-08 Lab [facility], 1.2.840.1 [id number] 42149 92866 Methodi 17:25:00 17:30:[address] 3.430.2.7 Hospit a .3.213621 l .8 2020-12-08 2020-12-08 [facility], 1.2.840.1 [id number] 69372 80541 Methodi 10:30:00 11:39:56 Visit Ray [address]2652.1.[address] 3.430.2.7 Hospit a .3.775472 l .8 2020-12-08 2020-12-08 Travel 1.2.840.1 1.2.009.592 5947 415374 Methodi 00:00:00 00:00:[address] 3.430.2.7 0.2.7.3.698 Ho spita .3.275088 084.8 l .8 2020-12-02 2020-12-02 Quoter Santiago Cardenas 1.2.840.1 [id number] [facility] 10:20:06 10:36:19 Visit [facility] 00626.1.1 ity of 3.104.2.7 [place] .3.577012 Medica l .8 Branch 2020-12-02 2020-12-02 Quoter Santiago Cardenas 1.2.840.1 [id number] [facility] 10:20:06 10:36:19 Visit [facility] 86926.1.1 ity of 3.104.2.7 [place] .3.406959 Medica l .8 [place] 2020-12-02 2020-12-02 Quoter [facility] UNIVERSIT 1.2.840.114 8 [id number] 10:20:06 10:36:19 Visit [facility] 350.1.13.10 [facility] 4.2.7.2.686 [id number] 316 2020-12-02 2020-12-02 Office [facility], 1.2.840.6 [id number] 51559 528 Univers 08:31:37 09:01:37 Visit Santiago 70527.1.1 ity of 3.104.2.7 [place] .3.807096 Medica l .8 [place] 2020-12-02 2020-12-02 Outpatient R [facility] [id number] 304 Univers 09:00:00 09:00:00 SANTIAGO ity of [facility] 2020-11-25 2020-11-25 Office Beltran, 1.2.840.6 [id number] 32883 865 Univers 11:06:30 11:58:14 Visit Robbi Hairston 36732.1.1 i ty of 3.104.2.7 [place] .3.597610 Medica l .8 [place] 2020-11-25 2020-11-25 Office Beltran, 1.2.840.4 [id number] 40195 865 Univers 11:06:30 11:58:14 Visit Robbi Hairston 07091.1.1 i ty of 3.104.2.7 [place] .3.202469 Medica l .8 [place] 2020-11-25 2020-11-25 Office [facility] 1.2.840.114 [id number] 11:06:30 11:58:14 Visit Robbi Hairston [employer]SULT[employer] 350.1.13.10 [facility] 4.2.7.2.686 MATERNAL 130.2490449 & CHILD [address] [place] [address] 2020-11-25 2020-11-25 Outpatient R [facility] [id number] Univers 11:00:00 11:00:00 ity of [facility] 2020-11-25 2020-11-25 Telephone Beltran, 1.2.840.8 [id number] 855 27060 Univers 00:00:00 00:00:00 Robbi Hairston 82392.1.1 i ty of 3.104.2.7 [place] .3.329928 Medica l .8 Branch 2020-11-25 2020-11-25 Refill [place], 1.2.840.2 [id number] 37894 592 Univers 00:00:00 00:00:00 Santiago 17577.1.1 ity of 3.104.2.7 [place] .3.605906 Medica l .8 Branch 2020-11-25 2020-11-25 Travel 1.2.840.1 1.2.739.273 7575 0247 Univers 00:00:00 00:00:00 60092.1.1 350.1.13.10 ity of 3.104.2.7 4.2.7.3.698 [place] .3.167031 084.8 Medica l .8 Branch 2020-11-25 2020-11-25 Orders Doctor 1.2.840.9 [id number] 064 Univers 00:00:00 00:00:00 Only Unassigned, 96611.1.1 ity of [place] 3.104.2.7 [place] .3.639094 Medica l .8 Branch 2020-11-25 2020-11-25 Telephone Devin, 1.2.840.9 [id number] 855 57117 Univers 00:00:00 00:00:00 Robbi Hairston 96585.1.1 i ty of 3.104.2.7 [place] .3.377663 Medica l .8 Branch 2020-11-25 2020-11-25 Refill [place], 1.2.840.6 [id number] 70298 592 Univers 00:00:00 00:00:00 Santiago 66647.1.1 ity of 3.104.2.7 [place] .3.851586 Medica l .8 Branch 2020-11-25 2020-11-25 Travel 1.2.840.1 1.2.550.127 1953 0247 Univers 00:00:00 00:00:00 28918.1.1 350.1.13.10 ity of 3.104.2.7 4.2.7.3.698 [place] .3.037756 084.8 Medica l .8 Branch 2020-11-25 2020-11-25 Orders Doctor 1.2.840.4 [id number] 03908 064 Univers 00:00:00 00:00:00 Only Unassigned, 30120.1.1 ity of [place] 3.104.2.7 [place] .3.072683 Medica l .8 Branch 2020-11-25 2020-11-25 [facility] 1.2.662.916 8311 4592 00:00:00 00:00:00 [facility] 350.1.13.10 [facility] 4.2.7.2.686 [id number] 9 2020-11-25 2020-11-25 Telephone [facility] 1.2.296.168 5148 0821 00:00:00 00:00:00 Robbi Hairston CENTER LE[employer]SULTANT 350.1.13.10 [facility] 4.2.7.2.686 MATERNAL [id number] & CHILD [address] [place] [address] 2020-11-14 2020-11-14 Abstract Clark, 1.2.840.1 [id number] 75799 78507 Methodi 00:00:00 00:00:[address] 3.430.2.7 Hospit a .3.455678 l .8 2020-11-14 2020-11-14 Telephone Clark 1.2.840.1 [id number] 2100 204286 Methodi 00:00:00 00:00:[address] 3.430.2.7 Hospit a .3.228225 l .8 2020-11-12 2020-11-12 Outpatient [facility] [id number] 323 Univers 08:30:00 08:30:00 SANTIAGO barbosa [facility] 2020-11-07 2020-11-07 Telephone Agustina Ortiz UTP 6400 1.2.840.11 4 [id number] [place] 00:00:00 00:00:[address] 350.1.13.58 Health 9.2.7.2.686 [id number] 1 2020-11-07 2020-11-07 Telephone Diana UTP 6400 1.2.840.114 124 [id number] 00:00:00 00:00:[address] 350.1.13.58 9.2.7.2.686 468.5083233 1 2020-10-31 2020-10-31 Office Hematpour, UTP 6400 1.2.840.114 12 [id number] [place] 07:54:00 09:45:[address] 350.1.13.58 Health 9.2.7.2.686 210.4958951 1 2020-10-30 2020-10-30 Abstract Rody Maguire UTP 6400 1.2.840.1 14 [id number] [place] 00:00:00 00:00:[address] 350.1.13.58 Health 9.2.7.2.686 326.7123093 1 2020-10-29 2020-10-29 Refill [place], 1.2.840.2 [id number] 18279 400 Univers 00:00:00 00:00:00 Santiago 59004.1.1 ity of 3.104.2.7 [place] .3.666589 Medica l .8 Branch 2020-10-29 2020-10-29 Refill [place], 1.2.840.6 [id number] 02223 400 Univers 00:00:00 00:00:00 Santiago 63169.1.1 ity of 3.104.2.7 [place] .3.462358 Medica l .8 Branch 2020-10-27 2020-10-27 Telephone Chirichelle, 1.2.840.2 [id number] 21 [id number] Method 00:00:00 00:00:[address] 3.430.2.7 Hospit a .3.150661 l .8 2020-10-24 2020-10-24 Telephone Clark, 1.2.840.1 [id number] 2100 582331 Methodi 00:00:00 00:00:[address] 3.430.2.7 Hospit a .3.989528 l .8 2020-10-22 2020-10-22 [facility] [id number] 868 Univers 13:00:00 13:00:00 [facility] 2020-10-22 2020-10-22 Travel 1.2.840.1 1.2.988.490 6931 3839 Univers 00:00:00 00:00:00 59538.1.1 350.1.13.10 ity of 3.104.2.7 4.2.7.3.698 [place] .3.290023 084.8 Medica l .8 [place] 2020-10-22 2020-10-22 Travel 1.2.840.1 1.2.846.666 8821 3839 Univers 00:00:00 00:00:00 75358.1.1 350.1.13.10 ity of 3.104.2.7 4.2.7.3.698 [place] .3.134676 084.8 Medica l .8 [place] 2020-10-13 2020-10-13 Outpatient R SELF, [facility] [id number] Univers 08:45:00 08:45:00 GADIEL familia [facility] [place] [facility] 2020-10-06 2020-10-12 Telemedici Cadea, 1.2.840.1 [id number] 21 [id number] Methodi 15:30:00 00:08:46 ne Ray 66032.1.[address] 3.430.2.7 Hospit a .3.673060 l .8 2020-09-30 2020-09-30 Telephone Jailyn, 1.2.840.4 [id number] Methodi 00:00:00 00:00:[address] 3.430.2.7 Hospit a .3.671702 l .8 2020-09-21 2020-09-21 [facility] 1.2.840.1 1.2.256.771 6639 106406 Methodi 00:00:00 00:00:[address] 3.430.2.7 0.2.7.3.698 Ho spita .3.016627 084.8 l .8 2020-09-06 2020-09-06 [facility] 1.2.840.1 [id number] 06921 Methodi 17:42:30 23:59:[address] 3.430.2.7 Hospit a .3.799756 l .8 2020-09-06 2020-09-06 [facility], 1.2.840.1 [id number] 2099 [id number] Methodi 16:50:00 17:41:00 Encounter Ray [address]3896.1.[address] 3.430.2.7 Hospit a .3.653249 l .8 2020-09-05 2020-09-05 [facility], 1.2.840.1 [id number] 2099 [id number] Methodi 09:17:00 19:45:00 Encounter Ray [address].1.[address] 3.430.2.7 Hospit a .3.831973 l .8 2020-09-05 2020-09-05 Surgery [facility], 1.2.840.1 [id number] 99558 83357 Methodi 11:30:00 13:15:[address] 3.430.2.7 Hospit a .3.478268 l .8 2020-09-05 2020-09-05 Anesthesia [facility], 1.2.840.1 [id number] 655 [id number] Methodi 11:27:00 12:20:00 Event Johnathanthi 14788.1.1 243 s t V. 3.430.2.7 Hospit a .3.234028 l .8 2020-09-05 2020-09-05 Travel 1.2.840.1 1.2.575.747 3916 692654 Methodi 00:00:00 00:00:[address] 3.430.2.7 0.2.7.3.698 Ho spita .3.587096 084.8 l .8 2020-09-04 2020-09-04 Telephone Meisenbach, 1.2.840.1 [id number] Methodi 00:00:00 00:00:00 Sarai M. 86832.1.1 762 s t 3.430.2.7 Hospit a .3.075769 l .8 2020-09-02 2020-09-02 Telephone Meisenbach, 1.2.840.1 [id number] Methodi 00:00:00 00:00:00 Sarai M. 59753.1.1 344 s t 3.430.2.7 Hospit a .3.916033 l .8 2020-08-29 2020-08-30 Bedded [facility] [id number] [facility] 10:20:00 14:10:00 Outpatient r [place] 00 [facility] 2020-08-29 2020-08-30 Outpatient HEMATPOUR, [facility] CAR 7500 [facility] 05:20:00 09:10:00 BEVERLY 2020-08-06 2020-08-06 Office [place], 1.2.840.6 [id number] 70351 416 Univers 08:03:23 09:17:49 Visit Santiago 56380.1.1 ity 3.104.2.7 [place] .3.463090 Medica l .8 Branch 2020-08-06 2020-08-06 Outpatient R RONALD [facility] [id number] Univers 08:30:00 08:30:00 SANTIAGO barbosa of [facility] 2020-07-14 2020-07-14 Outpatient R RODO [facility] [id number] Univers 09:30:00 09:30:00 GADIEL barbosa o [facility] 2020-07-14 2020-07-14 Travel 1.2.840.1 1.2.853.315 3703 2575 Univers 00:00:00 00:00:00 88057.1.1 350.1.13.10 ity of 3.104.2.7 4.2.7.3.698 [place] .3.836041 084.8 Medica l .8 [place] 2020-07-14 2020-07-14 Orders Doctor 1.2.840.9 [id number] 69831 309 Univers 00:00:00 00:00:00 Only Unassigned, 05878.1.1 ity of [place] 3.104.2.7 [place] .3.457044 Medica l .8 [place] 2020-06-16 2020-06-[address] [facility] [id number] Univers 08:00:00 08:00:00 GADIEL barbosa o f [facility] 2020-06-06 2020-06-06 Telephone Ronald, 1.2.840.2 [id number] 809 [id number] Univers 00:00:00 00:00:00 Santiago 83109.1.1 ity of 3.104.2.7 [place] .3.810512 Medica l .8 [place] 2020-06-04 2020-06-04 Quoter Santiago Cardenas 1.2.840.1 [id number] Univers 09:31:58 09:40:12 Visit [facility] 18545.1.1 ity of 3.104.2.7 [place] .3.021219 Medica l .8 [place] 2020-06-04 2020-06-04 [facility] 1.2.[facility].509 8075 9729 Univers 08:13:41 09:28:25 Visit Santiago [facility] 350.1.13.10 i ty of CLINICS 4.2.7.2.686 Richi bach 667.0902272 [facility] porfirio 089 [place] 2020-06-04 2020-06-04 Outpatient R [facility] [id number] Univers 08:30:00 08:30:00 SANTIAGO barbosa of [facility] 2020-06-04 2020-06-04 Orders Doctor 1.2.840.4 [id number] 079 Univers 00:00:00 00:00:00 Only Unassigned, 10690.1.1 ity of [place] 3.104.2.7 [place] .3.074370 Medica l .8 [place] 2020-05-19 2020-05-19 Telephone [place], 1.2.840.1 [id number] 804 96049 Univers 00:00:00 00:00:00 Santiago 11397.1.1 ity of 3.104.2.7 [place] .3.978713 Medica l .8 [place] 2020-04-24 2020-04-24 Telephone [place], 1.2.840.3 [id number] 799 04423 Univers 00:00:00 00:00:00 Santiago 43102.1.1 ity of 3.104.2.7 [place] .3.781066 Medica l .8 [place] 2020-04-14 2020-04-14 Outpatient R EAST, [facility] [id number] Univers 09:00:00 09:00:00 SANTIAGO ity of [facility] 2020-04-14 2020-04-14 Telephone [place], 1.2.840.6 [id number] 797 [id number] Univers 00:00:00 00:00:00 Santiago 53653.1.1 ity of 3.104.2.7 [place] .3.596980 Medica l .8 [place] 2020-03-31 2020-03-31 Outpatient R [facility] [id number] Univers 08:30:00 08:30:00 SANTIAGO ity [facility] 2020-03-03 2020-03-03 Outpatient R SELF, [facility] [id number] Univers 08:00:00 08:00:00 GADIEL barbosa o f [facility] 2020-03-03 2020-03-03 Outpatient R SELF, [facility] [id number] Univers 08:00:00 08:00:00 GADIEL barbosa o f [facility] 2020-03-03 2020-03-03 Travel 1.2.840.1 1.2.208.813 8404 5480 Univers 00:00:00 00:00:00 99783.1.1 350.1.13.10 ity of 3.104.2.7 4.2.7.3.698 [place] .3.169244 084.8 Medica l .8 [place] 2020-02-06 2020-02-06 Telephone [place], 1.2.840.7 [id number] 781 77929 Univers 00:00:00 00:00:00 Santiago 22971.1.1 ity of 3.104.2.7 [place] .3.791345 Medica l .8 Branch 2020-01-26 2020-01-26 Emergency Caridad, 1.2.840.9 [id number] 779 50269 Univers 10:03:00 13:05:00 Cynise 57150.1.1 ity of 3.104.2.7 [place] .3.738269 Medica l .8 [place] 2020-01-26 2020-01-26 Travel 1.2.840.1 1.2.761.574 0787 0120 Univers 00:00:00 00:00:00 19121.1.1 350.1.13.10 ity of 3.104.2.7 4.2.7.3.698 [place] .3.283530 084.8 Medica l .8 [place] 2020-01-25 2020-01-25 Outpatient R [facility] [id number] Univers 08:30:00 08:30:00 SANTIAGO ity of [facility] 2020-01-25 2020-01-25 Telemedici [place], 1.2.840.4 [id number] Univers 07:36:49 08:06:49 ne Visit Santiago 44345.1.1 ity of 3.104.2.7 [place] .3.646666 Medica l .8 [place] 2020-01-16 2020-01-16 Outpatient R [facility] [id number] Univers 08:00:00 08:00:00 SANTIAGO ity of [facility] 2020-01-16 2020-01-16 Telephone East, 1.2.840.2 [id number] Univers 00:00:00 00:00:00 Santiago 64148.1.1 ity of 3.104.2.7 [place] .3.764766 Medica l .8 [place] 2020-01-14 2020-01-14 Outpatient R SELF, [facility] [id number] Univers 08:00:00 08:00:00 GADIEL rodas [facility] 2019-12-31 2019-12-31 Outpatient R SELF, [facility] [id number] Univers 08:45:00 08:45:00 GADIEL rodas [facility] 2019-10-17 2019-10-17 Outpatient R EAST, [facility] [id number] Univers 08:30:00 08:30:00 SANTIAGO [facility]lie [facility] 2019-10-12 2019-10-12 Outpatient R EAST, [facility] [id number] Univers 13:00:00 13:00:00 SANTIAGO [facility] 2019-10-12 2019-10-12 Telemedici [place], 1.2.840.9 [id number] Univers 07:38:30 08:08:30 ne Visit Santiago 00857.1.1 ity of 3.104.2.7 [place] .3.912607 Medica l .8 [place] 2019-10-08 2019-10-08 Outpatient R SELF, [facility] [id number] Univers 10:15:00 10:15:00 GADIEL rodas [facility] 2019-10-03 2019-10-03 Case Xiao, 1.2.840.1 [id number] Univers 00:00:00 00:00:00 Management Michael Corbin 19324.1.1 i ty of 3.104.2.7 [place] .3.317295 Medica l .8 [place] 2019-09-27 2019-09-27 Telephone East, 1.2.840.4 [id number] Univers 00:00:00 00:00:00 Santiago 49538.1.1 ity of 3.104.2.7 [place] .3.471866 Medica l .8 [place] 2019-09-04 2019-09-04 Refill East, 1.2.840.0 [id number] Univers 00:00:00 00:00:00 Santiago 88113.1.1 ity of 3.104.2.7 [place] .3.871315 Medica l .8 [place] 2019-07-24 2019-07-24 Outpatient R EAST, [facility] [id number] Univers 08:30:00 08:30:00 SANTIAGO ity [facility] 2019-07-17 2019-07-17 Outpatient R EAST, [facility] [id number] Univers 10:00:00 10:00:00 SANTIAGO itcharlie [facility] 2019-06-15 2019-06-15 Telephone East, 1.2.840.3 [id number] Univers 00:00:00 00:00:00 [place] 66976.1.1 ity of 3.104.2.7 [place] .3.573026 Medica l .8 [place] 2019-06-13 2019-06-13 Telephone Team, [facility] 1.2.840.5 [id number] Univers 00:00:00 00:00:00 Health 69482.1.1 [place] .3.[place] .8 [place] 2019-05-10 2019-05-10 Refill Ronald, 1.2.840.6 [id number] Univers 00:00:00 00:00:00 [place] 73755.1.1 ity of 3.104.2.7 [place] .3.889923 Medica l .8 [place] 2019-05-09 2019-05-09 Refill Ronald, 1.2.840.4 [id number] Univers 00:00:00 00:00:00 [place] 38336.1.1 ity of 3.104.2.7 [place] .3.273421 Medica l .8 [place] 2019-04-30 2019-04-30 Outpatient R SELF, [facility] [id number] Univers 10:15:00 10:33:05 GADIEL maciely o f [facility] 2019-04-18 2019-04-18 Quoter [place] Cardenas 1.2.840.1 [id number] Univers 10:00:39 10:44:31 Visit [facility] 05396.1.1 ity of 3.104.2.7 [place] .3.283761 Medica l .8 [place] 2019-04-18 2019-04-18 Outpatient R EAST, [facility] [id number] Univers 10:00:00 10:44:31 SANTIAGO ity of [facility] 2019-04-18 2019-04-18 Office East, 1.2.840.1 [id number] Univers 08:27:44 09:53:27 Visit Santiago 03214.1.1 ity of 3.104.2.7 [place] .3.164628 Medica l .8 [place] 2019-04-18 2019-04-18 Orders Doctor 1.2.840.3 [id number] Univers 00:00:00 00:00:00 Only Unassigned, 27359.1.1 ity of [place] 3.104.2.7 [place] .3.137508 Medica l .8 [place] 2019-04-11 2019-04-11 Refill East, 1.2.840.1 [id number] Univers 00:00:00 00:00:00 [place] 05726.1.1 ity of 3.104.2.7 [place] .3.125860 Medica l .8 [place] 2019-04-09 2019-04-09 Refill East, 1.2.840.6 [id number] Univers 00:00:00 00:00:00 [place] 32583.1.1 ity of 3.104.2.7 [place] .3.596046 Medica l .8 [place] 2019-04-03 2019-04-03 Telephone Team, [facility] 1.2.840.9 [id number] Univers 00:00:00 00:00:00 Health 23331.1.1 [place] .3.[place] .[facility] [place] 2019-03-27 2019-03-27 Telephone Self, 1.2.840.0 [id number] Univers 00:00:00 00:00:00 Gadiel 92302.1.1 ity of 3.104.2.7 [place] .3.017866 Medica l .8 [place] 2019-01-17 2019-01-17 Office East, 1.2.840.2 [id number] Univers 07:37:21 10:32:51 Visit Santiago 31992.1.1 ity of 3.104.2.7 [place] .3.286192 Medica l .8 [place] 2019-01-04 2019-01-12 Office Eveline Hansen 1.2.840.1 [id number] Univers 11:19:32 11:08:05 Visit Mariela 00724.1.1 ity of 3.104.2.7 [place] .3.624636 Medica l .8 [place] 2019-01-10 2019-01-10 Telephone Stanislav, 1.2.840.9 [id number] Univers 00:00:00 00:00:00 Eladio Inman 04957.1.1 ity of 3.104.2.7 [place] .3.973226 Medica l .8 [place] 2018-12-18 2018-12-18 Office Geraldine 1.2.840.0 [id number] Univers 08:48:45 09:13:43 Visit Leyda 65464.1.1 it y of 3.104.2.7 [place] .3.742076 Medica l .8 [place] 2018-10-30 2018-10-30 Telephone [facility], 1.2.840.7 [id number] Univers 00:00:00 00:00:00 [place] 81492.1.1 ity of 3.104.2.7 [place] .3.191005 Medica l .8 [place] 2018-10-23 2018-10-23 Orders Doctor 1.2.840.2 [id number] Univers 00:00:00 00:00:00 Only Unassigned, 94004.1.1 ity of [place] 3.104.2.7 [place] .3.721413 Medica l .8 [facility] 2018-10-23 2018-10-23 Nurse Selvin, 1.2.840.0 [id number] Univers 00:00:00 00:00:00 Triage Stefanie 50438.1.1 ity of 3.104.2.7 [place] .3.620504 Medica l .8 [facility] 2018-10-23 2018-10-23 Telephone Self, 1.2.840.0 [id number] Univers 00:00:00 00:00:00 Gadiel 79455.1.1 ity of 3.104.2.7 [place] .3.797634 Medica l .8 [place] 2018-10-20 2018-10-20 Telephone Self, 1.2.840.3 [id number] Univers 00:00:00 00:00:00 Gadiel 00718.1.1 ity of 3.104.2.7 [place] .3.007701 Medica l .8 [facility] Results Test Description Test Time Test Comments Results Result Comments Source COMP. METABOLIC PANEL (49977) 2022-05-06 22:42:55 Test Item Value Reference Range Interpretation Comme nts NA (test code = 3401625184) 137 mmol/L 135-145 K (test code = 0559407854) 3.2 mmol/L 3.5-5.0 L CL (test code = 5853597743) 100 mmol/L 98-108 CO2 TOTAL (test code = 9870838922) 23 mmol/L 23-31 AGAP (test code = 3064709650) 2-16 BUN (test code = 1403241919) 41 mg/dL 7-23 H GLUCOSE (test code = 8412373769) 98 mg/dL 70-110 CREATININE (test code = 1.55 mg/dL 0.50-1.04 H 3750618141) TOTAL BILI (test code = 0.8 mg/dL 0.1-1.1 4700364764) CALCIUM (test code = 8402447450) 8.3 mg/dL 8.6-10.6 L T PROTEIN (test code = 1840562821) 6.9 g/dL 6.3-8.2 ALBUMIN (test code = 2950579247) 3.9 g/dL 3.5-5.0 ALK PHOS (test code = 3461534182) 89 U/L 34-122 ALTv (test code = 1742-6) 101 U/L 5-35 H AST(SGOT) (test code = 4468178293) 203 U/L 13-40 H eGFR (test code = 9485036531) mL/min/1.73m2 KYLE (test code = KYLE) Association [...] tests). Lab Interpretation (test code = Abnormal 56590-7) [facility] WITH [id number] 22:33:52 Test Item Value Reference Range Interpretation Comments WBC (test code = See_Comment L [Automated 6158-2) message] The sy stem which generated this result transmitted reference range : 4.30 - 11.10 10*3/?L. The reference range was not used to interpret this result as normal/abnormal . RBC (test code = See_Comment [Automated 526-5) message] The sy stem which generated this [...] RDW-SD (test code = 46.3 fL 39.0-49.9 24621-2) RDW-CV (test code = 13.5 % 12.0-15.5 788-0) PLT (test code = See_Comment L [Automated 777-3) message] The sy stem which generated this result transmitted reference range : 166 - 358 10*3/ ?L. The reference r abbey was not used to interpret this result as normal/abnormal . MPV (test code = 9.5 fL 9.5-12.9 39482-9) NRBC/100 WBC (test See_Comment [Automat ed code = 3819790020) message] The system which generated this result transmitted reference range : 0.0 - 10.0 /100 WBCs. The refer ence range was not u sed to interpret th is result as normal/abnormal . NRBC x10^3 (test code See_Comment [Auto mated = 9008011084) message] The s ystem which generated this result transmitted reference range : 10*3/?L. The reference range was not used to interpret this result as normal/abnormal . GRAN MAT (NEUT) % 58.3 % (test code = 770-8) IMM GRAN % (test code 0.80 % = 4519443130) LYMPH % (test code = 28.1 % 736-9) MONO % (test code = 12.0 % 5905-5) EOS % (test code = 0.5 % 713-8) BASO % (test code = 0.3 % 706-2) GRAN MAT x10^3(ANC) 2.29 10*3/uL 1.88-7.09 (test code = 4959394932) IMM GRAN x10^3 (test 0.03 10*3/uL 0.00-0.06 code = 0637652234) LYMPH x10^3 (test code 1.10 10*3/uL 1.32-3.29 L = 731-0) MONO x10^3 (test code 0.47 10*3/uL 0.33-0.92 = 742-7) EOS x10^3 (test code = 0.03-0.39 L 711-2) BASO x10^3 (test code 0.01-0.07 = 704-7) Lab Interpretation Abnormal (test code = 00326-9) [facility] METABOLIC PANEL (NA, K, CL, CO2, GLUCOSE, BUN, CREATININE, CA)2022-04-22 21:43:42 Test Item Value Reference Range Interpretation Comments NA (test code = 142 mmol/L 135-145 4968837347) K (test code = 3.5 mmol/L 3.5-5.0 6654858273) CL (test code = 106 mmol/L 98-108 1426860179) CO2 TOTAL (test code = 26 mmol/L 23-31 5068854783) AGAP (test code = 2-16 1483645258) BUN (test code = 29 mg/dL 7-23 H 6293083714) GLUCOSE (test code = 84 mg/dL 70-110 0099082133) CREATININE (test code = 1.16 mg/dL 0.50-1.04 H 2227765356) CALCIUM (test code = 8.2 mg/dL 8.6-10.6 L 3511529296) eGFR (test code = mL/min/1.73m2 9566227348) KYLE (test code = KYLE) Association of [...] tests). Lab Interpretation Abnormal (test code = 24575-1) [facility] WITH [id number] 21:33:01 Test Item Value Reference Range Interpretation [...] (test code = 50.7 fL 39.0-49.9 H 11486-1) RDW-CV (test code = 14.6 % 12.0-15.5 788-0) PLT (test code = See_Comment L [Automated 777-3) message] The sy stem which generated this result transmitted reference range : 166 - 358 10*3/ ?L. The reference r abbey was not used to interpret this result as normal/abnormal . MPV (test code = 8.8 fL 9.5-12.9 L 66075-1) NRBC/100 WBC (test See_Comment [Automat ed code = 9921231849) message] The system which generated this result transmitted reference range : 0.0 - 10.0 /100 WBCs. The refer ence range was not u sed to interpret th is result as normal/abnormal . NRBC x10^3 (test code See_Comment [Auto mated = 0189441087) message] The s ystem which generated this result transmitted reference range : 10*3/?L. The reference range was not used to interpret this result as normal/abnormal . GRAN MAT (NEUT) % 70.9 % (test code = 770-8) IMM GRAN % (test code 0.50 % = 7217815014) LYMPH % (test code = 17.4 % 736-9) MONO % (test code = 9.0 % 5905-5) EOS % (test code = 1.7 % 713-8) BASO % (test code = 0.5 % 706-2) GRAN MAT x10^3(ANC) 4.60 10*3/uL 1.88-7.09 (test code = 2031955055) IMM GRAN x10^3 (test 0.03 10*3/uL 0.00-0.06 code = 1834445870) LYMPH x10^3 (test code 1.13 10*3/uL 1.32-3.29 L = 731-0) MONO x10^3 (test code 0.58 10*3/uL 0.33-0.92 = 742-7) EOS x10^3 (test code = 0.11 10*3/uL 0.03-0.39 711-2) BASO x10^3 (test code 0.03 10*3/uL 0.01-0.07 = 704-7) Lab Interpretation Abnormal (test code = 62733-5) [id number] 06:01:07 Test Item Value Reference Range Interpretation Comments Blood Culture-Aerobic No organisms No growth Previo us (test code = 39281-6) isolated prelim inary verified result was Culture [...] Culture-Anaerobic isolated preliminar y (test code = 83687-3) verifi ed result was Culture In Progress [...] CDT Lab Interpretation Normal (test code = 80013-1) [facility] CULTURE [id number] 06:01:07 Test Item Value Reference Range Interpretation Comments Blood Culture-Aerobic No organisms No growth Previo us (test code = 51657-0) isolated prelim inary verified result was Culture [...] Culture-Anaerobic isolated preliminar y (test code = 42911-6) verifi ed result was Culture In Progress [...] CDT Lab Interpretation Normal (test code = 92233-9) [facility] CULTURE [id number] 06:01:07 Test Item Value Reference Range Interpretation Comments Blood Culture-Aerobic No organisms No growth Previo us (test code = 33864-0) isolated prelim inary verified result was Culture [...] Culture-Anaerobic isolated preliminar y (test code = 94616-4) verifi ed result was Culture In Progress [...] CDT Lab Interpretation Normal (test code = 39465-6) [facility] [id number] 10:49:10 Test Item Value Reference Range Interpretation Comments NT-proBNP (test code 2660 pg/mL See_Comment H [Autom ated = 8700536886) message] The system which generated this result transmitted reference range : <=125. The reference range was not used to interpret this result as normal/abnormal . KYLE (test code = KYLE) Biotin has been reported to cause a negative bias, interpret results relative to patient's use of biotin. Lab Interpretation Abnormal (test code = 13763-9) [facility] [id number] 10:49:10 Test Item Value Reference Range Interpretation Comments NT-proBNP (test code 2660 pg/mL See_Comment H [Autom ated = 7528026820) message] The system which generated this result transmitted reference range : <=125. The reference range was not used to interpret this result as normal/abnormal . KYLE (test code = KYLE) Biotin has been reported to cause a negative bias, interpret results relative to patient's use of biotin. Lab Interpretation Abnormal (test code = 26701-0) [facility] METABOLIC PANEL (NA, K, CL, CO2, GLUCOSE, BUN, CREATININE, CA)2022-02-15 10:44:07 Test Item Value Reference Range Interpretation Comments NA (test code = 134 mmol/L 135-145 L 7693830815) K (test code = 3.2 mmol/L 3.5-5 L 3165480214) CL (test code = 98 mmol/L 98-108 0614868772) CO2 TOTAL (test code = 27 mmol/L 23-31 7510317562) AGAP (test code = 2-16 1257978731) BUN (test code = 19 mg/dL 7-23 1996791380) GLUCOSE (test code = 102 mg/dL 70-110 9697765764) CREATININE (test code = 0.95 mg/dL 0.5-1.04 1994010841) CALCIUM (test code = 8.5 mg/dL 8.6-10.6 L 3247887819) eGFR (test code = mL/min/1.73m2 2678888791) KYLE (test code = KYLE) Association of [...] tests). Lab Interpretation Abnormal (test code = 48994-7) [facility]2022-09-26 10:44:07 Test Item Value Reference Range Interpretation Comments MAGNESIUM (test code = 8492808222) 1.8 mg/dL 1.7-2.4 Lab Interpretation (test code = Normal 39929-6) [facility]2022-09-26 10:44:07 Test Item Value Reference Range Interpretation Comments MAGNESIUM (test code = 9428547126) 1.8 mg/dL 1.7-2.4 Lab Interpretation (test code = Normal 43603-7) [facility] METABOLIC PANEL (NA, K, CL, CO2, GLUCOSE, BUN, CREATININE, CA)2022-02-15 10:44:07 Test Item Value Reference Range Interpretation Comments NA (test code = 134 mmol/L 135-145 L 6170086014) K (test code = 3.2 mmol/L 3.5-5.0 L 0136874300) CL (test code = 98 mmol/L 98-108 7442379887) CO2 TOTAL (test code = 27 mmol/L 23-31 2708013890) AGAP (test code = 2-16 4658429372) BUN (test code = 19 mg/dL 7-23 2862977629) GLUCOSE (test code = 102 mg/dL 70-110 6575758546) CREATININE (test code = 0.95 mg/dL 0.50-1.04 2127525021) CALCIUM (test code = 8.5 mg/dL 8.6-10.6 L 8235664080) eGFR (test code = mL/min/1.73m2 9658584604) KYLE (test code = KYLE) Association of [...] tests). Lab Interpretation Abnormal (test code = 74075-1) [facility] WITH [id number] 10:12:06 Test Item Value Reference Range Interpretation Comments WBC (test code = See_Comment L [Automated 1890-2) message] The sy stem which generated this result transmitted reference range : 4.30 - 11.10 10*3/?L. The reference range was not used to interpret this result as normal/abnormal . RBC (test code = See_Comment L [Automated 109-8) message] The sy stem which generated this [...] RDW-SD (test code = 47.8 fL 39-49.9 73523-6) RDW-CV (test code = 15.2 % 12-15.5 788-0) PLT (test code = See_Comment L [Automated 777-3) message] The sy stem which generated this result transmitted reference range : 166 - 358 10*3/ ?L. The reference r abbey was not used to interpret this result as normal/abnormal . MPV (test code = 8.9 fL 9.5-12.9 L 34747-1) NRBC/100 WBC (test See_Comment [Automat ed code = 3399621915) message] The system which generated this result transmitted reference range : 0.0 - 10.0 /100 WBCs. The refer ence range was not u sed to interpret th is result as normal/abnormal . NRBC x10^3 (test code See_Comment [Auto mated = 5499948225) message] The s ystem which generated this result transmitted reference range : 10*3/?L. The reference range was not used to interpret this result as normal/abnormal . GRAN MAT (NEUT) % 65.9 % (test code = 770-8) IMM GRAN % (test code 0.30 % = 6574629303) LYMPH % (test code = 21.0 % 736-9) MONO % (test code = 10.1 % 5905-5) EOS % (test code = 2.4 % 713-8) BASO % (test code = 0.3 % 706-2) GRAN MAT x10^3(ANC) 2.49 10*3/uL 1.88-7.09 (test code = 9819522841) IMM GRAN x10^3 (test 0-0.06 code = 3882400146) LYMPH x10^3 (test code 0.79 10*3/uL 1.32-3.29 L = 731-0) MONO x10^3 (test code 0.38 10*3/uL 0.33-0.92 = 742-7) EOS x10^3 (test code = 0.09 10*3/uL 0.03-0.39 711-2) BASO x10^3 (test code 0.01-0.07 = 704-7) Lab Interpretation Abnormal (test code = 08635-7) [facility] WITH [id number] 10:12:06 Test Item Value Reference Range Interpretation [...] RDW-SD (test code = 47.8 fL 39.0-49.9 44132-9) RDW-CV (test code = 15.2 % 12.0-15.5 788-0) PLT (test code = See_Comment L [Automated 777-3) message] The sy stem which generated this result transmitted reference range : 166 - 358 10*3/ ?L. The reference r abbey was not used to interpret this result as normal/abnormal . MPV (test code = 8.9 fL 9.5-12.9 L 43700-7) NRBC/100 WBC (test See_Comment [Automat ed code = 5317222833) message] The system which generated this result transmitted reference range : 0.0 - 10.0 /100 WBCs. The refer ence range was not u sed to interpret th is result as normal/abnormal . NRBC x10^3 (test code See_Comment [Auto mated = 6907469998) message] The s ystem which generated this result transmitted reference range : 10*3/?L. The reference range was not used to interpret this result as normal/abnormal . GRAN MAT (NEUT) % 65.9 % (test code = 770-8) IMM GRAN % (test code 0.30 % = 8347860900) LYMPH % (test code = 21.0 % 736-9) MONO % (test code = 10.1 % 5905-5) EOS % (test code = 2.4 % 713-8) BASO % (test code = 0.3 % 706-2) GRAN MAT x10^3(ANC) 2.49 10*3/uL 1.88-7.09 (test code = 2482926026) IMM GRAN x10^3 (test 0.00-0.06 code = 3955408894) LYMPH x10^3 (test code 0.79 10*3/uL 1.32-3.29 L = 731-0) MONO x10^3 (test code 0.38 10*3/uL 0.33-0.92 = 742-7) EOS x10^3 (test code = 0.09 10*3/uL 0.03-0.39 711-2) BASO x10^3 (test code 0.01-0.07 = 704-7) Lab Interpretation Abnormal (test code = 48322-7) [facility] WITH [id number] 11:18:28 Test Item Value Reference Range Interpretation [...] RDW-SD (test code = 49.5 fL 39-49.9 89705-0) RDW-CV (test code = 15.5 % 12-15.5 788-0) PLT (test code = See_Comment L [Automated 777-3) message] The sy stem which generated this result transmitted reference range : 166 - 358 10*3/ ?L. The reference r abbey was not used to interpret this result as normal/abnormal . MPV (test code = 11.4 fL 9.5-12.9 04970-7) IPF % (test code = 8.7 % 1.3-7.7 H Platelet count 9191692298) measured by fluorescence method. NRBC/100 WBC (test See_Comment [Automat ed code = 5282958033) message] The system which generated this result transmitted reference range : 0.0 - 10.0 /100 WBCs. The refer ence range was not u sed to interpret th is result as normal/abnormal . NRBC x10^3 (test code See_Comment [Auto mated = 6201041445) message] The s ystem which generated this result transmitted reference range : 10*3/?L. The reference range was not used to interpret this result as normal/abnormal . GRAN MAT (NEUT) % 62.0 % (test code = 770-8) IMM GRAN % (test code 0.80 % = 4742768720) LYMPH % (test code = 22.2 % 736-9) MONO % (test code = 9.6 % 5905-5) EOS % (test code = 5.1 % 713-8) BASO % (test code = 0.3 % 706-2) GRAN MAT x10^3(ANC) 2.21 10*3/uL 1.88-7.09 (test code = 5632463568) IMM GRAN x10^3 (test 0.03 10*3/uL 0-0.06 code = 9890225149) LYMPH x10^3 (test code 0.79 10*3/uL 1.32-3.29 L = 731-0) MONO x10^3 (test code 0.34 10*3/uL 0.33-0.92 = 742-7) EOS x10^3 (test code = 0.18 10*3/uL 0.03-0.39 711-2) BASO x10^3 (test code 0.01-0.07 = 704-7) POLYCHROMASIA (test 2+ See_Comment [Automa arpit code = 36662-0) message] The system which generated this result [...] . Lab Interpretation Abnormal (test code = 57241-4) [facility] METABOLIC PANEL (NA, K, CL, CO2, GLUCOSE, BUN, CREATININE, CA)2022-02-13 10:39:07 Test Item Value Reference Range Interpretation Comments NA (test code = 136 mmol/L 135-145 4642820585) K (test code = 4.1 mmol/L 3.5-5 7130240477) CL (test code = 102 mmol/L 98-108 8811928105) CO2 TOTAL (test code = 27 mmol/L 23-31 6109059044) AGAP (test code = 2-16 8229224458) BUN (test code = 22 mg/dL 7-23 6365999699) GLUCOSE (test code = 94 mg/dL 70-110 8557554740) CREATININE (test code = 0.94 mg/dL 0.5-1.04 0176460966) CALCIUM (test code = 8.1 mg/dL 8.6-10.6 L 1680209680) eGFR (test code = mL/min/1.73m2 8459723331) KYLE (test code = KYLE) Association of [...] tests). Lab Interpretation Abnormal (test code = 77594-5) [facility]22-[facility]12 01:50:10 Test Item Value Reference Range Interpretation Comments Height (test code = in 3989075996) Weight (test code = lbs 6905690887) Systolic BP (test code mmHg = 8324827622) Diastolic BP (test code mmHg = 9543486468) Heart Rate (test code = bpm 5531519039) BSA (test code = 1.85 m2 9234262167) IVS (test code = 1.22 cm 0927489156) Interventricular Septum 1.22 cm Diastolic Thickness by 2D (test code = 9303889) LVIDD (test code = 5.00 cm 0131439862) Left Ventricular End 117.9 mL Diastolic Volume by Teichholz Method (test code = 5335647) LVPWD (test code = 1.22 cm 4050870902) PW (test code = 1.22 cm 0.6-1.2 9959106955) EF(Teich) (test code = 74.60 % 9739762734) LVIDS (test code = 2.80 cm 8055812563) Left Ventricular End 29.9 mL Systolic Volume by Teichholz Method (test code = 1009095) FS (test code = 44 % 6735525091) EF - 2D (test code = 74.60 % 97188881) LVOT diameter (test 2.16 cm code = 2071033514) LVOT area (test code = 3.70 cm2 4020336388) Ao root diam (test code 3.40 cm = 2919511102) Aortic root (test code 3.4 cm = 4768141821) Ao root annulus (test 3.4 cm code = 9076275046) LA size (test code = 3.4 cm 2167958560) TR Peak Spencer (test code 330.0 cm/s = 7276680531) Triscuspid Valve mmHg Regurgitation Peak Gradient (test code = 0023220657) PV REGURGITATION PEAK mmHg GRADIENT (test code = 2194238916) PI dec slope (test code 137.20 cm/s2 = 0696028287) LAV(MOD-sp4) (test code 102.90 mL = 7904735603) MV Peak E Spencer (test 84.1 cm/s code = 7379045646) MV Peak A Spencer (test 40.1 cm/s code = 3423147398) E/A ratio (test code = ratio 7731210870) MV valve area p 1/2 3.70 cm2 method (test code = 9763906137) MV dec slope (test code 413.00 cm/s2 = 9672566283) MV P1/2t max spencer (test 83.70 cm/s code = 6364697358) MV Prop V (test code = 41.80 cm/s 4100472409) Tapse (test code = 1.83 cm 0922481317) LVOT stroke volume 96.90 cm3 (test code = 7359573693) LVOT peak spencer (test 125.5 cm/s code = 4710771876) LVOT mn grad (test code mmHg = 5915720638) AV LVOT peak gradient mmHg (test code = 3209616194) LVOT peak VTI (test 26.4 cm code = 6394458114) LV V1 mean (test code = 78.10 cm/s 7028516016) Aortic valve mean 103.7 cm/s velocity (test code = 6847962657) Ao peak spencre (test code 165.6 cm/s = 7959210558) Ao VTI (test code = 37.2 cm 0127251738) AV area by cont VTI 2.6 cm2 (test code = 8677493870) AV area peak spencer (test 2.8 cm2 code = 0834279474) Ao max PG (test code = 11.00 mm[Hg] 5445883664) AV peak gradient (test mmHg code = 5754130203) AV valve area (test 2.60 cm2 code = 6452695204) AV mean gradient (test mmHg code = 7388082257) LA Volume Index (BP) 55.2 mL/m2 (test code = 6406191399) LA volume (BP) (test 102.1 mL code = 5181391653) LAV(MOD-sp2) (test code 86.10 mL = 0285502949) A2C EF (test code = 61.20 % 4045148449) EF(sp2-el) (test code = 61.60 % 7660133106) SV(MOD-sp2) (test code 47.10 mL = 7332868891) LV Diastolic Volume 70.7 mL (BP) (test code = 3905781661) A4C EF (test code = 53.00 % 8410795735) EF(MOD-bp) (test code = 56.70 % 5782178480) EF(sp4-el) (test code = 53.90 % 8933366300) LV Systolic Volume (BP) 30.6 mL (test code = 7043835860) SV(MOD-bp) (test code = 40.10 mL 3147777302) SV(MOD-sp4) (test code 32.40 mL = 6813838387) SV(sp4-el) (test code = 33.10 mL 3119466236) EF (test code = 8126847968) Left Ventricular Stroke 40.1 mL Volume by 2-D Biplane-MOD (test code = 2708035) LV Diastolic Volume 38.2 mL/m2 Index (BP) (test code = 9014381369) LV Systolic Volume 16.5 mL/m2 Index (BP) (test code = 1596388820) Radiology Study observation (narrative) (test code = 69875-5) KYLE (test code = KYLE) ?Left?Ventricle: Left [...] is normal. [facility] [id number] 05:45:01 Test Item Value Reference Interpretation Comments Range TROPONIN I (test See_Comment [Automated code = 3218735668) message] The system which generated this result [...] biotin. Lab Interpretation Normal (test code = 41962-2) [facility] [id number] 05:41:40 Test Item Value Reference Range Interpretation Comments NT-proBNP (test code 4250 pg/mL See_Comment H [Autom ated = 8438522425) message] The system which generated this result transmitted reference range : <=125. The reference range was not used to interpret this result as normal/abnormal . KYLE (test code = KYLE) Biotin has been reported to cause a negative bias, interpret results relative to patient's use of biotin. Lab Interpretation Abnormal (test code = 07101-1) [facility] THRMPLAS [id number] 05:35:21 Test Item Value Reference Range Interpretation [...] seconds. Lab Interpretation Normal (test code = 93649-7) [facility] [id number] 05:35:21 Test Item Value Reference Range Interpretation Comments APTT Patient (test See_Comment [Automat ed code = 3173-2) message] The system which generated this result transmitted reference range : 23 - 38 Seconds . The reference range was not used to interpr et this result as normal/abnormal . KLYE (test code = KYLE) The [facility] patient population mean normal value for aPTT is 30 seconds. Lab Interpretation Normal (test code = 53104-0) [facility]kinPROTHROMBIN TIME / [id number] 05:33:21 Test Item Value Reference Range Interpretation [...] tions. Lab Interpretation (test Normal code = 93511-5) [facility] METABOLIC PANEL (30320)2022-02-11 05:33:21 Test Item Value Reference Range Interpretation Comments NA (test code = 137 mmol/L 135-145 0119397449) K (test code = 4.3 mmol/L 3.5-5 3990480579) CL (test code = 103 mmol/L 98-108 3350690759) CO2 TOTAL (test code = 25 mmol/L 23-31 9496065922) AGAP (test code = 2-16 3357236466) BUN (test code = 19 mg/dL 7-23 7806889900) GLUCOSE (test code = 120 mg/dL 70-110 H 3153232457) CREATININE (test code = 1.15 mg/dL 0.5-1.04 H 5657289361) TOTAL BILI (test code = 0.9 mg/dL 0.1-1.4 6374302212) CALCIUM (test code = 8.9 mg/dL 8.6-10.6 3515383834) T PROTEIN (test code = 6.6 g/dL 6.3-8.2 7408045868) ALBUMIN (test code = 4.0 g/dL 3.5-5 9642820677) ALK PHOS (test code = 73 U/L 34-122 1340041284) ALTv (test code = 18 U/L 5-35 1742-6) AST(SGOT) (test code = 31 U/L 13-40 6509384278) eGFR (test code = mL/min/1.73m2 5463392770) KYLE (test code = KYLE) Association of [...] tests). Lab Interpretation Abnormal (test code = 30161-0) [facility]. METABOLIC PANEL (89060)2022-02-11 05:33:21 Test Item Value Reference Range Interpretation Comments NA (test code = 137 mmol/L 135-145 0328480668) K (test code = 4.3 mmol/L 3.5-5.0 8227563099) CL (test code = 103 mmol/L 98-108 2489453930) CO2 TOTAL (test code = 25 mmol/L 23-31 5120719764) AGAP (test code = 2-16 7672922971) BUN (test code = 19 mg/dL 7-23 0090116670) GLUCOSE (test code = 120 mg/dL 70-110 H 8725216648) CREATININE (test code = 1.15 mg/dL 0.50-1.04 H 4721155164) TOTAL BILI (test code = 0.9 mg/dL 0.1-1.0 8796050280) CALCIUM (test code = 8.9 mg/dL 8.6-10.6 3921531105) T PROTEIN (test code = 6.6 g/dL 6.3-8.2 5007205383) ALBUMIN (test code = 4.0 g/dL 3.5-5.0 9921857376) ALK PHOS (test code = 73 U/L 34-122 0756970445) ALTv (test code = 18 U/L 5-35 1742-6) AST(SGOT) (test code = 31 U/L 13-40 3199149555) eGFR (test code = mL/min/1.73m2 4139811670) KYLE (test code = KYLE) Association of [...] tests). Lab Interpretation Abnormal (test code = 11955-1) [facility]kinPROTHROMBIN TIME / [id number] 05:33:21 Test Item Value Reference Range Interpretation [...] tions. Lab Interpretation (test Normal code = 91366-7) [facility]kinCBC WITH [id number] 05:14:37 Test Item Value Reference Range Interpretation Comments WBC (test code = See_Comment [Automated 6490-2) message] The sy stem which generated this result transmitted reference range : 4.30 - 11.10 10*3/?L. The reference range was not used to interpret this result as normal/abnormal . RBC (test code = See_Comment L [Automated 839-8) message] The sy stem which generated this [...] RDW-SD (test code = 47.9 fL 39-49.9 63416-6) RDW-CV (test code = 14.9 % 12-15.5 788-0) PLT (test code = See_Comment L [Automated 777-3) message] The sy stem which generated this result transmitted reference range : 166 - 358 10*3/ ?L. The reference r abbey was not used to interpret this result as normal/abnormal . MPV (test code = 9.1 fL 9.5-12.9 L 10394-3) NRBC/100 WBC (test See_Comment [Automat ed code = [id number]) message] The system which generated this result transmitted reference range : 0.0 - 10.0 /100 WBCs. The refer ence range was not u sed to interpret th is result as normal/abnormal . NRBC x10^3 (test code See_Comment [Auto mated = [id number]) message] The s ystem which generated this result transmitted reference range : 10*3/?L. The reference range was not used to interpret this result as normal/abnormal . GRAN MAT (NEUT) % 78.5 % (test code = 770-8) IMM GRAN % (test code 0.20 % = [id number]) LYMPH % (test code = 11.6 % 736-9) MONO % (test code = 8.4 % 5905-5) EOS % (test code = 1.1 % 713-8) BASO % (test code = 0.2 % 706-2) GRAN MAT x10^3(ANC) 3.45 10*3/uL 1.88-7.09 (test code = 5607030370) IMM GRAN x10^3 (test 0-0.06 code = 2482805545) LYMPH x10^3 (test code 0.51 10*3/uL 1.32-3.29 L = 731-0) MONO x10^3 (test code 0.37 10*3/uL 0.33-0.92 = 742-7) EOS x10^3 (test code = 0.05 10*3/uL 0.03-0.39 711-2) BASO x10^3 (test code 0.01-0.07 = 704-7) Lab Interpretation Abnormal (test code = 82873-2) [facility] Coronavirus 2019 Dfogmkt1948-70-82 18:08:00 Test Item Value Reference Range Interpretation [...] det ection of nucleic acids f rom ctxVCVW-ElO-2 v irus and diagnosis of SA RS-CoV-2 virusinfection. It is an Emergency Use Authorization ( EUA) testauthorized by the U.S. FDA. BASIC METABOLIC [id number] 09:37:00 Test Item Value Reference Range Interpretation [...] = 9.0 mg/dL 8.0-10.5 N CA) PROTHROMBIN [id number] 09:32:00 Test Item Value Reference Range Interpretation [...] (to prevent recurrent infar ct). 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 [facility] - XR CHEST 1 L5301-22-74 00:00[facility]00 [facility] 1955 Sex: F FAX: Urmila KellyBibiana Francisco Peterson [phone] [place]: St: ADM FAX: Mike Scales MD [phone] FAX: Bahman Chopra [phone] Name: LIO WATTS [facility] : 1955 Age/S: 66/F [address] [place] [address] Unit #: [id number] Loc: [place] [address] Phys: Bahman Chopra [facility] Acct: [id number] Dis Date: Status: ADM IN PHONE #: [phone] Exam Date: 06/17/2021 1320 FAX #: [phone] Reason: WATCHMAN EXAMS: CPT CODE: [id number] XR CHEST 1 V 54574 PROCEDURE INFORMATION: Exam: XR Chest Exam date [...] failure/volume loading. 2. Subsegmental atelectasis bilateral. at 5013 Reported and signed by: Lambert Vega M.D. CC: Lele Rahman DO; Mike Lund MD; Bahman Chopra Technologist: RT Taylor(R) Trnscrd Date/Time/By: 06/17/2021 (0466) : By: [email or web address] Orig Print D/T: S: 06/17/2021 (0368) PAGE 1 Signed ReportCOVID 19 Asymptomatic IH [id number] 12:29:00 Test Item Value Reference Range Interpretation [...] high or waivedcomplexit y tests. BASIC METABOLIC [id number] 11:37:00 Test Item Value Reference Range Interpretation [...] code = 9.0 mg/dL 8.0-10.5 N CA) [id number] 11:37:00 Test Item Value Reference Range Interpretation Comments PREALBUMIN (test code = PREALB) 24.3 mg/dL 16.0-40.0 N PROTHROMBIN QLMQ6995-79-45 11:03:00 Test Item Value Reference Range Interpretation [...] (to prevent recurrent infar ct). CBC W/AUTO [id number] 10:59:00 Test Item Value Reference Range Interpretation [...] 0.0-0.1 N NRBC#) - XR CHEST 2 [id number] 00:00:00 [facility] 1955 Sex: F FAX: Carmenza Olivera DO [phone] [place]: St: PRE FAX: Mike Scales MD [phone] Name: LIO WATTS [facility] [place] : 1955 Age/S: 66/F [address] [place] [address] Unit #: [id number] Loc: [place] [address] Phys: Mike Lund MD Acct: [id number] Dis Date: Status: PRE SDC PHONE #: [phone] Exam Date: 06/16/2021 112 FAX #: [phone] Reason: PREOP EXAMS: CPT CODE: [id number] XR CHEST 2 V 12584 PROCEDURE INFORMATION: Exam: XR Chest Exam date [...] By: [email or web address] Orig Print D/T: S: 06/16/2021 (1130) PAGE 1 Signed ReportGastrointestinal aqllg3122-92-87 04:35:05 Test Item Value Reference Interpretation Comments [...] Rotavirus PCR (test Not Detected code = 6395623) Salmonella PCR (test Not Detected code = [...] PCR Not Detected (test code = 7124) [facility] ifecpoo6911-02-34 19:30:47 Test Item Value Reference Range Interpretation Comments Case number (test [id number] code = 4322838) Surgical pathology See link below for PDF report (test code = Lab Report 2255) Result status (test This is Supplemental code = 2147839) Report for [id number] [facility]2021-04-09 16:31:00 Test Item Value Reference Range Interpretation Comments POC Activated Clotting Time (test code 153 s = POC Activated Clotting Time) [facility]WixxnidMVFTCFNCIU9324-99-64 16:31:00 Test Item Value Reference Range Interpretation Comments POC Activated Clotting Time (test code 153 s = POC Activated Clotting Time) [facility] CenterNsxxetxINTOTZIYDH2861-19-43 16:31:00 Test Item Value Reference Range Interpretation Comments POC Activated Clotting Time (test code 153 s = POC Activated Clotting Time) [facility] CenterOdkjjipXWBBPXSQTE3483-33-19 16:31:00 Test Item Value Reference Range Interpretation Comments POC Activated Clotting Time (test code 153 s = POC Activated Clotting Time) [facility] CenterCwsdoesPWPHTKLSFA3007-18-94 16:31:00 Test Item Value Reference Range Interpretation Comments POC Activated Clotting Time (test code 153 s = POC Activated Clotting Time) [facility] CenterHerjxqgDSWBCNUFMQ4760-21-63 16:31:00 Test Item Value Reference Range Interpretation Comments POC Activated Clotting Time (test code 153 s = POC Activated Clotting Time) [facility] CenterZnjimpfHQFWWHLPRI5715-69-43 16:31:00 Test Item Value Reference Range Interpretation Comments POC Activated Clotting Time (test code 153 s = POC Activated Clotting Time) [facility] CenterWudzgxzPYKQDFDMFN6904-99-95 14:37:00 Test Item Value Reference Range Interpretation Comments POC Activated Clotting Time (test code 454 s = POC Activated Clotting Time) [facility] CenterIcpjnwvDNCIYSFDCS1624-91-65 14:37:00 Test Item Value Reference Range Interpretation Comments POC Activated Clotting Time (test code 454 s = POC Activated Clotting Time) [facility] CenterBnlxqskERWIHEXQVO1597-82-28 14:37:00 Test Item Value Reference Range Interpretation Comments POC Activated Clotting Time (test code 454 s = POC Activated Clotting Time) [facility] CenterXeeiihePFEFNXEENU2383-35-74 14:37:00 Test Item Value Reference Range Interpretation Comments POC Activated Clotting Time (test code 454 s = POC Activated Clotting Time) [facility] CenterBribsqeOWSPKDJFBW1393-65-88 14:37:00 Test Item Value Reference Range Interpretation Comments POC Activated Clotting Time (test code 454 s = POC Activated Clotting Time) [facility] CenterTmbipafOYCQHGBMLD4325-19-89 14:37:00 Test Item Value Reference Range Interpretation Comments POC Activated Clotting Time (test code 454 s = POC Activated Clotting Time) [facility] CenterBzxdzjfKKVZBBMVXL4930-86-08 14:37:00 Test Item Value Reference Range Interpretation Comments POC Activated Clotting Time (test code 454 s = POC Activated Clotting Time) [facility] CenterPydizgsFLAPPYZRZR4200-10-17 14:13:00 Test Item Value Reference Range Interpretation Comments POC Activated Clotting Time (test code 354 s = POC Activated Clotting Time) [facility] CenterTyzoslyTRMUJOTTJY4095-38-19 14:13:00 Test Item Value Reference Range Interpretation Comments POC Activated Clotting Time (test code 354 s = POC Activated Clotting Time) [facility] CenterWgsjrowFKAWUMAICO5034-79-60 14:13:00 Test Item Value Reference Range Interpretation Comments POC Activated Clotting Time (test code 354 s = POC Activated Clotting Time) [facility] CenterBoxhgqwXRVQKMRGTG6730-99-77 14:13:00 Test Item Value Reference Range Interpretation Comments POC Activated Clotting Time (test code 354 s = POC Activated Clotting Time) [facility] CenterXbuehvyVZZMWIANBN0453-89-44 14:13:00 Test Item Value Reference Range Interpretation Comments POC Activated Clotting Time (test code 354 s = POC Activated Clotting Time) [facility] CenterNrbeqmtSDBRGCCLIV0758-06-04 14:13:00 Test Item Value Reference Range Interpretation Comments POC Activated Clotting Time (test code 354 s = POC Activated Clotting Time) [facility] CenterPprgestJJJIFIMRTU5401-42-73 14:13:00 Test Item Value Reference Range Interpretation Comments POC Activated Clotting Time (test code 354 s = POC Activated Clotting Time) [facility]2021-04-09 10:37:00Negative (08/29/20 5:37 AM) [facility] JDUFY5500-99-48 10:37:46060Hzstjiak HermannCHEM PANEL 2020-08-29 10:37:0028[facility]annCHE[facility] AXQDF2380-43-43 10:37:001.01[facility]annCHE[facility] EAOHS5949-38-49 10:37:30801Nsynwhtm [facility]CHE[facility] EXQKI1503-49-15 10:37:003.8[facility]annCHE[facility] BUEEA2194-82-89 10:37:71844Yjygrkdk [facility]CHE[facility] GDKMV1996-37-60 10:37:0028[facility]annCHE[facility] HLZAY9264-81-25 10:37:009.8 [facility] TCOHP1350-02-27 10:37:0011.8[facility]annCHEM PANEL 2020-08-29 10:37:0059[facility]annCHEM CINIG5133-30-41 10:37:002.9[facility] OgertqtRCFXQRKDNT1498-19-62 10:37:006.8[facility] AptamkjJIXBVEBPEU0531-85-77 10:37:004.47[facility] EtuzmucWDENTXAHJO0530-37-15 10:37:0010.6[facility] JZSVQGRHHU7727-83-28 10:37:0034.0[facility] BahxvfoQRDBVAMTSY1311-42-86 10:37:00 76.1[facility] LqcxxfmGIRRRQPEMB4401-97-32 10:37:00 Test Item Value Reference Range Interpretation Comments MCH (test code = MCH) 23.8 pg 27.0-31.0 [facility] LwhzeloYVPKGVFSDW2199-76-02 10:37:0031.3[facility]annHEMATOLOGY 2020-08-29 10:37:0018.2[facility] CqmvpybAZPYXSLJFE9110-19-03 10:37:91670Ncmjsvfd YlqyfmfWSCJTIICGJ7358-43-98 10:37:007.5[facility] MpwxocyAMRAYVTCSR2880-70-34 10:37:00 Test Item Value Reference Range Interpretation Comments PT (test code = PT) 12.8 s 12.0-14.7 [facility] RatlkazMJWZHRDGDR9713-81-86 10:37:00 Test Item Value Reference Range Interpretation Comments INR (test code = INR) 0.97 1 0.85-1.17 [facility] QsnbghpAOIDFHMEYE9626-80-13 10:37:00 Test Item Value Reference Range Interpretation Comments PTT (test code = PTT) 25.0 s 22.9-35.8 [facility] AtepgakNOGSPOCBVB2655-60-27 10:37:0070.5[facility]annHEMATOLOGY 2020-08-29 10:37:0018.8[facility] GwwtkeeTDKEFYMHPJ7552-37-64 10:37:009.5[facility] XojhmafAYITIHTRAZ9530-87-95 10:37:000.9[facility] VrigwdlTBAYYAYMAV9046-63-03 10:37:000.3[facility] HvmzdanZOWONQOQXK2393-69-26 10:37:004.8[facility] TTZEVLEMBE2964-66-03 10:37:001.3[facility] CbvlchxNZDRKKXAFW0934-61-17 10:37:000.6 [facility] QctidjwFIXWAHAWFU4565-88-94 10:37:000.1[facility]annHEMATOLOGY 2020-08-29 10:37:001+ *ABN*(08/29/20 5:37 AM)[facility] NuruarfRUAPLXLUSB9684-82-69 10:37:00Not Detected (08/29/20 5:37 AM)[facility]annBLOOD BANK RESULTS 2020-08-29 10:37:00Negative (08/29/20 5:37 AM)[facility]annCHEM ESHFT4990-52-56 10:37:44676Hpqguawc HermannCHEM XHUSJ2694-30-12 10:37:0028[facility]annCHEM HSUFG4779-68-63 10:37:001.01[facility]annCHEM QHLNI8541-94-07 10:37:49655 [facility]CHE[facility] GZCRB0079-17-85 10:37:003.8[facility]annCHEM PANEL 2020-08-29 10:37:18442Cxchbbpo HermannCHEM VFTIN7461-21-06 10:37:0028[facility]annCHE[facility] UPLVK3448-40-73 10:37:009.8[facility]annCHE[facility] MADTM1118-16-94 10:37:0011.8[facility]annCHE[facility] KIHVX0959-88-25 10:37:0059[facility]annCHE[facility] SVMUN0390-11-96 10:37:002.9[facility] XinfakrXJFGHYXLNA2965-39-97 10:37:006.8 [facility] RtugbmaTGIBKNDNQP1577-96-13 10:37:004.47[facility]annHEMATOLOGY 2020-08-29 10:37:0010.6[facility] RhjdghhXOLNXNWYRE3124-45-06 10:37:0034.0[facility] XhxffjmBCXKIQLLJG7758-83-79 10:37:0076.1[facility] LcpevsjBNEEDZANHZ8930-41-19 10:37:00 Test Item Value Reference Range Interpretation Comments MCH (test code = MCH) 23.8 pg 27.0-31.0 [facility] KcepnysIYGORSQCXM7636-52-03 10:37:0031.3[facility]annHEMATOLOGY 2020-08-29 10:37:0018.2[facility] YzcvyraOHMBIQQRRR2062-69-92 10:37:03518Endtjkip XethukcNKNYVGAGTY2761-74-00 10:37:007.5[facility] IfldfbkCYNATKLOJD8480-90-46 10:37:00 Test Item Value Reference Range Interpretation Comments PT (test code = PT) 12.8 s 12.0-14.7 [facility] KmsadgfKPXNWZZRSN8802-39-54 10:37:00 Test Item Value Reference Range Interpretation Comments INR (test code = INR) 0.97 1 0.85-1.17 [facility] DaaptlgWIEJMUOECI9481-25-47 10:37:00 Test Item Value Reference Range Interpretation Comments PTT (test code = PTT) 25.0 s 22.9-35.8 [facility] MkzefomEUDOFYHNEJ4702-69-26 10:37:0070.5[facility]annHEMATOLOGY 2020-08-29 10:37:0018.8[facility] VxsjosaSZTOWLXMDV9737-85-53 10:37:009.5[facility] GprgbuaTBEALVJYQJ4401-43-28 10:37:000.9[facility] MexqzssHOVFIHQGII5823-50-17 10:37:000.3[facility] XmbfrncMZPVGHQLCF1690-32-05 10:37:004.8[facility] JJDVBCLBPW4645-41-07 10:37:001.3[facility] RabpzbrYMARWYTAEC4337-71-93 10:37:000.6 [facility] VqvpbxyUURMQACUJM3766-54-64 10:37:000.1[facility]annHEMATOLOGY 2020-08-29 10:37:001+ *ABN*(08/29/20 5:37 AM)[facility] NahahloSTXNONDTEF4571-55-31 10:37:00Not Detected (08/29/20 5:37 AM)[facility]annBLOOD BANK RESULTS 2020-08-29 10:37:00Negative (08/29/20 5:37 AM)[facility]annCHEM SNVRT2109-13-06 10:37:66874Fbzamtwa HermannCHEM SOISQ2130-19-42 10:37:0028[facility]annCHEM URVCQ3757-20-82 10:37:001.01[facility]annCHEM YCYVP6047-86-32 10:37:99164 [facility]annCHE[facility] KWWPT3945-87-33 10:37:003.8[facility]annCHEM PANEL 2020-08-29 10:37:59383Ijbnaqjv HermannCHEM EYYBY0136-88-93 10:37:0028[facility]annCHEM YDWQC6653-66-92 10:37:009.8[facility]annCHEM XUHYT7316-07-92 10:37:0011.8[facility]annCHEM BWPIS6470-66-98 10:37:0059[facility]annCHEM GDQEV0248-66-20 10:37:002.9[facility] BydujwmIKLINPSYPQ6900-23-92 10:37:006.8 [facility] ZmukpvlVLMEXFOOVR8357-42-19 10:37:004.47[facility]annHEMATOLOGY 2020-08-29 10:37:0010.6[facility] BywujomJQBQPUOPSL0694-87-50 10:37:0034.0[facility] LdoufhzIMBSYANWUK9450-18-80 10:37:0076.1[facility] ErffirlURAGJMZWBP1120-99-85 10:37:00 Test Item Value Reference Range Interpretation Comments MCH (test code = MCH) 23.8 pg 27.0-31.0 [facility] LrnfokdHSOHBNQALI0316-86-38 10:37:0031.3[facility]annHEMATOLOGY 2020-08-29 10:37:0018.2[facility] ZcdxaltQLBFRKGFVV9705-67-89 10:37:20264Imkefqiy FewfbtoSFDVTHQBZW1585-26-78 10:37:007.5[facility] OzkjentYALHESALXF6669-77-54 10:37:00 Test Item Value Reference Range Interpretation Comments PT (test code = PT) 12.8 s 12.0-14.7 [facility] LjvsdznAYYVILMGRE6418-06-06 10:37:00 Test Item Value Reference Range Interpretation Comments INR (test code = INR) 0.97 1 0.85-1.17 [facility] KsxqnnlQEPSBJTPTV5321-94-30 10:37:00 Test Item Value Reference Range Interpretation Comments PTT (test code = PTT) 25.0 s 22.9-35.8 [facility] AktlgpmSJMQNGMFVE1795-38-03 10:37:0070.5[facility] HermannHEMATOLOGY 2020-08-29 10:37:0018.8[facility] FvxjvylDICBNPQCJV1102-21-18 10:37:009.5[facility] MpkxlahIVRBHNVGGE9935-01-96 10:37:000.9[facility] SfzoebrGZDZOTFUGG1022-93-05 10:37:000.3[facility] OrgsfcmCCFNVXSORT0569-93-22 10:37:004.8[facility] TLDUWITCRY0342-21-41 10:37:001.3[facility] DxijyobJGUHUXGSVY9572-23-45 10:37:000.6 [facility] MnjmaabTDKFOOZIJD4360-08-80 10:37:000.1[facility]annHEMATOLOGY 2020-08-29 10:37:001+ *ABN*(08/29/20 5:37 AM)[facility] WzctdmlYVBRDCMLLU2747-97-32 10:37:00Not Detected (08/29/20 5:37 AM)[facility]annBLOOD BANK RESULTS 2020-08-29 10:37:00Negative (08/29/20 5:37 AM)[facility]annCHEM PHXOX3351-71-70 10:37:10848Qwnltftc HermannCHEM BPWDN1444-83-61 10:37:0028[facility]annCHEM AIPGV0436-72-57 10:37:001.01[facility]annCHEM CIJNH8354-85-00 10:37:94800 [facility]CHE[facility] OKDFI5717-82-36 10:37:003.8[facility] HermannCHEM PANEL 2020-08-29 10:37:62143Iwgqtorb HermannCHEM GXSZP9331-86-83 10:37:0028[facility]annCHEM YXTUK8423-26-73 10:37:009.8[facility] HermannCHEM KJIAA9417-56-86 10:37:0011.8[facility] HermannCHEM PXBHA1555-23-18 10:37:0059[facility]annCHEM DNWZV1526-85-79 10:37:002.9[facility] ElgmfuoUSDYYRTJAU4333-15-80 10:37:006.8 [facility] OhjmgtfXYVAGWNBCZ5614-04-46 10:37:004.47[facility]annHEMATOLOGY 2020-08-29 10:37:0010.6[facility] IyupjqqELFNWNELFP6355-32-40 10:37:0034.0[facility] QrjxkodSIBJUAGUKO5889-20-91 10:37:0076.1[facility] DqveqxbSWMWRLUIKD6454-96-29 10:37:00 Test Item Value Reference Range Interpretation Comments MCH (test code = MCH) 23.8 pg 27.0-31.0 [facility] SvtwsqdAUYWATUJDD4532-51-26 10:37:0031.3[facility]annHEMATOLOGY 2020-08-29 10:37:0018.2[facility] CipodxpIWIUQWVOSW5818-90-79 10:37:57668Mujsxrpo XknphxgFTWXDYROCV3944-09-17 10:37:007.5[facility] JsyxpymARLEBOBPND6949-22-91 10:37:00 Test Item Value Reference Range Interpretation Comments PT (test code = PT) 12.8 s 12.0-14.7 [facility] BzoxiynLQWNCDHJPW6426-43-87 10:37:00 Test Item Value Reference Range Interpretation Comments INR (test code = INR) 0.97 1 0.85-1.17 [facility] VmdznkaRHWWGBHTDV8509-19-22 10:37:00 Test Item Value Reference Range Interpretation Comments PTT (test code = PTT) 25.0 s 22.9-35.8 [facility] SxtnafgNKJIXHJCYO2105-42-05 10:37:0070.5[facility]annHEMATOLOGY 2020-08-29 10:37:0018.8[facility] MrglmzbGBUGFUTRVO8567-35-38 10:37:009.5[facility] FpyzrohWDIGFWOFRZ1952-70-33 10:37:000.9[facility] HnqfytuTMEVIPAWWW5131-65-50 10:37:000.3[facility] RxlhladEXDWTGVYST2458-97-63 10:37:004.8[facility] AIIMZCHXQB6858-06-97 10:37:001.3[facility] OacpraeXADRDPTAWM2303-29-79 10:37:000.6 [facility] YewisvqOUVEBHKLWC5889-77-47 10:37:000.1[facility]annHEMATOLOGY 2020-08-29 10:37:001+ *ABN*(08/29/20 5:37 AM)[facility] RtlprrhAQNCBJJFVP0090-59-30 10:37:00Not Detected (08/29/20 5:37 AM)[facility]annBLOOD BANK RESULTS 2020-08-29 10:37:00Negative (08/29/20 5:37 AM)[facility]annCHEM QIAMA4166-74-88 10:37:82417Dgtrrcae HermannCHEM IJNUA1607-65-09 10:37:0028[facility]annCHEM BXFCR1167-33-47 10:37:001.01[facility]annCHEM NLQZP8233-26-74 10:37:11789 [facility]CHE[facility] VAMUV3789-60-36 10:37:003.8[facility]annCHEM PANEL 2020-08-29 10:37:51306Rdtnacfw HermannCHEM EVTSI8488-01-11 10:37:0028[facility]annCHEM YSARJ7376-40-87 10:37:009.8[facility]annCHEM UGUDB1726-65-87 10:37:0011.8[facility] HermannCHEM MZSIB8219-10-65 10:37:0059[facility] HermannCHEM RUYQI0044-96-78 10:37:002.9[facility] AkqrgydJBGPKMZITQ4280-31-11 10:37:006.8 [facility] KvujkocYKHCWSGQCS1387-77-51 10:37:004.47[facility]annHEMATOLOGY 2020-08-29 10:37:0010.6[facility] GlcmvvfUVBSXEHIMD6332-36-33 10:37:0034.0[facility] PpoplnyIDGKMPSRVQ5911-16-69 10:37:0076.1[facility] QtbanhoBNIBJHIHTG9844-59-79 10:37:00 Test Item Value Reference Range Interpretation Comments MCH (test code = MCH) 23.8 pg 27.0-31.0 [facility] UjsztbtEKDGBQQCDX5885-32-12 10:37:0031.3[facility]annHEMATOLOGY 2020-08-29 10:37:0018.2[facility] YdciaisLJCBQJMLUZ9905-04-31 10:37:32525Fftdkwjh YcznhnrVMJLDVRMSX7303-90-06 10:37:007.5[facility] ZrsnmtoBBVXPDIGYO3735-35-57 10:37:00 Test Item Value Reference Range Interpretation Comments PT (test code = PT) 12.8 s 12.0-14.7 [facility] QeunhtkLMNLPCIOVH8526-54-15 10:37:00 Test Item Value Reference Range Interpretation Comments INR (test code = INR) 0.97 1 0.85-1.17 [facility] KlzvcvkYPZHYXJIOZ5955-37-55 10:37:00 Test Item Value Reference Range Interpretation Comments PTT (test code = PTT) 25.0 s 22.9-35.8 [facility] DybrtcxVQIVUGJUBT1070-43-91 10:37:0070.5[facility]annHEMATOLOGY 2020-08-29 10:37:0018.8[facility] FbppvlvEXVYXWWSEQ1356-20-83 10:37:009.5[facility] SyfavzwNZHUDGOWWW4501-30-14 10:37:000.9[facility] QzmzumgYQLHFCQJUY8677-67-32 10:37:000.3[facility] GwhxyguPBTSFICPXN8933-37-68 10:37:004.8[facility] QIRXSUMKWV4381-87-11 10:37:001.3[facility] QraquhnHHVYKITTZO3646-05-49 10:37:000.6 [facility] VymvigiVKJLPWOAUJ8600-43-54 10:37:000.1[facility]annHEMATOLOGY 2020-08-29 10:37:001+ *ABN*(08/29/20 5:37 AM)[facility] BpeykepGULZWDGBDM0470-48-98 10:37:00Not Detected (08/29/20 5:37 AM)[facility] HermannBLOOD BANK RESULTS 2020-08-29 10:37:00Negative (08/29/20 5:37 AM)[facility] HermannCHEM MMXWF6599-89-85 10:37:42464Fxzusqzd HermannCHEM HCYFF3968-65-84 10:37:0028[facility] HermannCHEM DPYTP9197-00-73 10:37:001.01[facility]annCHEM ATXPL7257-20-25 10:37:82834 [facility]annCHE[facility] VRFWN2348-58-88 10:37:003.8[facility] HermannCHEM PANEL 2020-08-29 10:37:15439Hiiwopid HermannCHEM VYYBB7497-29-15 10:37:0028[facility] HermannCHEM JTKHW8431-42-34 10:37:009.8[facility] HermannCHEM QRAUB9421-75-79 10:37:0011.8[facility]annCHEM OZMSB8707-87-51 10:37:0059[facility]annCHEM XZIOW2832-65-64 10:37:002.9[facility] PrlfswkEZTEJKSXEJ2922-25-32 10:37:006.8 [facility] LfzguzjBTQXKYPXNA4449-76-86 10:37:004.47[facility] HermannHEMATOLOGY 2020-08-29 10:37:0010.6[facility] RupeaylYEODEDLQJT0445-85-52 10:37:0034.0[facility] AgxtxbuOYMORXTNVO9370-65-00 10:37:0076.1[facility] LmlqkpiAZQBPVRYZM0484-12-32 10:37:00 Test Item Value Reference Range Interpretation Comments MCH (test code = MCH) 23.8 pg 27.0-31.0 [facility] CexongkIBYPXRHHGH7467-14-66 10:37:0031.3[facility]annHEMATOLOGY 2020-08-29 10:37:0018.2[facility] WigduorAJVQYIQDLT9519-33-28 10:37:78504Kbwudsxh XeuuknfELDKLRYYDI8915-62-90 10:37:007.5[facility] XidcwdrVYVBPOJBOQ8502-22-33 10:37:00 Test Item Value Reference Range Interpretation Comments PT (test code = PT) 12.8 s 12.0-14.7 [facility] KigcexlSDHKDVFMXX2791-49-60 10:37:00 Test Item Value Reference Range Interpretation Comments INR (test code = INR) 0.97 1 0.85-1.17 [facility] RklsqmhZKTXEPSVTO6108-66-27 10:37:00 Test Item Value Reference Range Interpretation Comments PTT (test code = PTT) 25.0 s 22.9-35.8 [facility] PdtaqmaFVFHAVHZSN2514-64-64 10:37:0070.5[facility] HermannHEMATOLOGY 2020-08-29 10:37:0018.8[facility] MutfumvFQRPUHNWNQ3370-13-11 10:37:009.5[facility] JqjlaplIBGTYUGXTO2421-36-77 10:37:000.9[facility] RmymeoxMMMGGKUWBS6250-10-98 10:37:000.3[facility] VbgtsmzGODDWKFDYW4768-16-30 10:37:004.8[facility] VERZOSNLQP7018-61-98 10:37:001.3[facility] IuvoidbORCSYEJTPU0343-16-72 10:37:000.6 [facility] QusmwsuJNUESECUTV6029-21-80 10:37:000.1[facility]annHEMATOLOGY 2020-08-29 10:37:001+ *ABN*(08/29/20 5:37 AM)[facility] PrvszndMXJHDPNLTO9512-28-87 10:37:00Not Detected (08/29/20 5:37 AM)[facility]annBLOOD BANK RESULTS 2020-08-29 10:37:00Negative (08/29/20 5:37 AM)[facility] HermannCHEM KGOLP8473-97-14 10:37:26100Dkvcdvbp HermannCHEM NNTEL7480-99-68 10:37:0028[facility] HermannCHEM SAAGY1415-51-87 10:37:001.01[facility] HermannCHEM PDBTG3629-02-86 10:37:87654 [facility]annCHEM IVZWS7420-29-81 10:37:003.8[facility] HermannCHEM PANEL 2020-08-29 10:37:71276Tnfzrwal HermannCHEM SCNBZ0544-57-95 10:37:0028[facility] HermannCHEM ETIRZ7713-55-30 10:37:009.8[facility] HermannCHEM YHOLE1212-86-03 10:37:0011.8[facility] HermannCHEM LAIGU9598-86-31 10:37:0059[facility] HermannCHEM BKVOJ2506-66-51 10:37:002.9[facility] FlclrecTYZNGQIIFU5822-61-13 10:37:006.8 [facility] GosjebxEDFYCYLTEL1089-93-65 10:37:004.47[facility]annHEMATOLOGY 2020-08-29 10:37:0010.6[facility] YnltikgQYZCGLUPMN2657-18-33 10:37:0034.0[facility] QrdtnetQVHBCEGSWQ4401-29-35 10:37:0076.1[facility] TvpengdBUJJASYHCJ1694-63-59 10:37:00 Test Item Value Reference Range Interpretation Comments MCH (test code = MCH) 23.8 pg 27.0-31.0 [facility] SfysnsrMWIDLPNJIV1489-60-32 10:37:0031.3[facility] HermannHEMATOLOGY 2020-08-29 10:37:0018.2[facility] BzlwccrJDWVNOYGMR3585-73-55 10:37:40575Oddbgvms GzwbpjiOKABUFQZST4495-62-48 10:37:007.5[facility] CiorvtbZVZVQLFUFY0087-56-85 10:37:00 Test Item Value Reference Range Interpretation Comments PT (test code = PT) 12.8 s 12.0-14.7 [facility] SfhcvmlIPADETIQRL7810-36-98 10:37:00 Test Item Value Reference Range Interpretation Comments INR (test code = INR) 0.97 1 0.85-1.17 [facility] GoccepkEATQVCBCVX7802-01-32 10:37:00 Test Item Value Reference Range Interpretation Comments PTT (test code = PTT) 25.0 s 22.9-35.8 [facility] FiggqpoKZZOCRBVQA7739-42-44 10:37:0070.5[facility] HermannHEMATOLOGY 2020-08-29 10:37:0018.8[facility] OfvucwxIRGUBOHKWQ0281-01-41 10:37:009.5[facility] JbefewuHSOZEPFPPV3678-58-40 10:37:000.9[facility] VnbrdpzODXJNFWBQC0183-00-48 10:37:000.3[facility] UgbhxkvCAOVRZCZAA9408-76-36 10:37:004.8[facility] KAJVYJYHBQ8736-30-81 10:37:001.3[facility] PkllgwsVJVXOKZUBY7055-30-27 10:37:000.6 [facility] QkqxjtgTIIEHFXINS0382-55-52 10:37:000.1[facility] HermannHEMATOLOGY 2020-08-29 10:37:001+ *ABN*(08/29/20 5:37 AM)[facility] TzzuabyDFWOAHSPTJ8010-94-65 10:37:00Not Detected (08/29/20 5:37 AM)[facility] HermannCHLAMYDIA, GC, TV,PCR, IN ZXVGW7573-49-21 15:38:00 Test Item Value Reference Range Interpretation Comments FT (test code = CHTR) Not detected (qualifier Not Detected N value) FT (test code = Not detected (qualifier Not Detected N NGONO) value) FT (test code = TRVG) Not detected (qualifier Not Detected N value) [facility] [id number] 10:57:00 Test Item Value Reference Range Interpretation Comments Color (test code = UCOLR) Dk. Yellow Clarity (test code = UCLAR) Hazy Glucose (test code = UGLUC) NEGATIVE NEGATIVE N Bilirubin (test code = UBILI) NEGATIVE NEGATIVE N Ketones (test code = UKET) NEGATIVE NEGATIVE N Specific [place] (test code = 1.025 1.005-1.030 A USPGR) [...] = None Seen None Seen N URCRYS) [facility]"
[2022-09-22] MEDS ORDERED: METHYLPREDNISOLONE 125 MG INJ ONE (13:28)
[2022-09-22] MEDS ORDERED: MORPHINE 4 MG/ML SYR ONE (13:29)
[2022-09-22] MEDS ORDERED: ALBUTEROL 2.5 MG/3 ML NEB SOL ONE (13:29)
[2022-09-22] MEDS ORDERED: ONDANSETRON 4 MG/2 ML VIAL ONE (13:29)
--- NOTE | 2022-09-22 14:08 | RAD REPORT ---
EXAM DESCRIPTION: Patrick Single View09/22/2022 1:54 pm CLINICAL HISTORY: Shortness of breath COMPARISON: September 22, 2022 FINDINGS: The lungs appear clear of acute infiltrate. The heart is moderately enlarged IMPRESSION: No acute abnormalities displayed
[2022-09-22 14:57] LABS: Absolute Lymphocytes (CBC) 0.4 K/uL (0.7-4.9); Lymphocytes % 5.2 % (15.3-44.8); MCV 84.7 fL (80-100); MPV 7.2 fL (7.6-11.3); RBC Red Blood Cell Count 3.78 M/uL (3.86-4.86)
[2022-09-22 15:12] LABS: Potassium 3.9 mEq/L (3.5-5.1); Troponin High Sensitivity 10.8 pg/mL (<58.9)
--- NOTE | 2022-09-22 15:27 | EDPHYS ---
Physician Documentation [facility] Name: Marjan Kolb Age: 67 yrs Sex: Female : 1955 Arrival Date: 09/22/2022 Time: 12:31 Bed DIS2 Private MD: ED Physician Jose Qureshi HPI: 09/22 13:20 This 67 yrs old Female presents to ER via EMS with complaints of Shortness Of Breath. sk4 13:20 here for shortness of breath. feels like copd flare. uses 3 liters all the time, no sk4 change. has chronic chest wall pain from copd and states she was here around 3am and left after not receiving pain md. states had neg chest x-ray and got one treatment and rx for steroids. no steroids today. uses nebulizer at home. . Historical: - Allergies: 12:56 Azithromycin; eh3 12:56 Bactrim; eh3 12:56 butorphanol; eh3 12:56 Fentanyl; eh3 12:56 Reglan; eh3 12:56 Sulfa (Sulfonamide Antibiotics); eh3 12:56 TRIMETHOPRIM; eh3 - Home Meds: 12:56 lisinopril Oral [Active]; Metoprolol Tartrate Oral [Active]; eh3 - PMHx: 12:56 angina pectoris; Anxiety; Atrial fibrillation; Bipolar disorder; esophageal varicies; eh3 Hepatitis; HIV positive; Hypertensive disorder; Migraine; panic attack; - Immunization history:: Adult Immunizations up to date. - Social history:: Smoking status: Patient denies any tobacco usage or history of. Patient/guardian denies using alcohol. ROS: 13:20 Constitutional: Negative for fever, chills, and weight loss, Cardiovascular: Negative sk4 for palpitations, and edema, Respiratory: Negative for cough Exam: 13:20 Constitutional: This is a well developed, well nourished patient who is awake, alert, sk4 and in no acute distress. Chest/axilla: Normal chest wall appearance and motion. Nontender with no deformity. No lesions are appreciated. Cardiovascular: Regular rate and rhythm with a normal S1 and S2. No gallops, murmurs, or rubs. Normal PMI, no JVD. No pulse deficits. Respiratory: Lungs have equal breath sounds bilaterally. + wheezes bilat. Skin: Warm, dry with normal turgor. Normal color with no rashes, no lesions, and no evidence of cellulitis. MS/ Extremity: Pulses equal, no cyanosis. Neurovascular intact. Full, normal range of motion. Vital Signs: 12:53 BP 189 / 95; Pulse 64; Resp 24; Temp 98.6(O); Pulse Ox 97% on 3 lpm NC; Weight 81.65 eh3 kg; Height 5 ft. 4 in. ; Pain 0/10; 14:00 BP 141 / 117; Pulse 67; Resp 19; Pulse Ox 99% on R/A; eh3 15:00 BP 206 / 61; Pulse 64; Resp 19; Pulse Ox 97% on R/A; eh3 16:00 BP 201 / 104; Pulse 66; Resp 14; Pulse Ox 98% on R/A; eh3 17:00 BP 185 / 94; Pulse 67; Resp 18; Pulse Ox 99% on R/A; eh3 17:30 BP 197 / 97; eh3 12:53 Body Mass Index 30.90 (81.65 kg, 162.56 cm) 3 12:53 Pain Scale: Adult 3 MDM: 13:20 Differential diagnosis: asthma, Bronchitis Chronic Obstructive Pulmonary Disease 4 Myocardial Infarction pneumonia, reactive airway disease. Data reviewed: vital signs, nurses notes, lab test result(s), EKG, radiologic studies. I considered the following discharge prescriptions or medication management in the emergency department Medications were administered in the Emergency Department. See MAR. Medication response: 15:25 Response to treatment: the patient's symptoms have markedly improved after treatment. [facility] 15:26 Patient medically screened. [facility] 09/22 13:01 Order name: Basic Metabolic Panel; Complete Time: 15:20 [facility] 09/22 13:01 Order name: CBC with Diff; Complete Time: 15:20 [facility] 09/22 13:01 Order name: Troponin HS; Complete Time: 15:20 [facility] 09/22 13:01 Order name: XRAY Chest (1 view); Complete Time: 14:57 [facility] 09/22 13:01 Order name: EKG; Complete Time: 13:02 [facility] 09/22 13:01 Order name: Cardiac monitoring; Complete Time: 13:05 [facility] 09/22 13:01 Order name: EKG - Nurse/Tech; Complete Time: 14:18 [facility] 09/22 13:01 Order name: IV Saline Lock; Complete Time: 14:47 sk4 09/22 13:01 Order name: Labs collected and sent; Complete Time: 14:47 sk4 09/22 13:01 Order name: O2 Per Protocol; Complete Time: 13:06 sk4 09/22 13:01 Order name: O2 Sat Monitoring; Complete Time: 13:06 sk4 Administered Medications: 14:45 Drug: MethylPrednisoLONE IVP 125 mg Route: IVP; Site: left hand; 3 16:00 Follow up: Response: No adverse reaction 3 14:45 Drug: morphine IVP or IV 4 mg Route: IVP; Infused Over: 4 mins; Site: left hand; 3 16:00 Follow up: Response: Pain is decreased 3 14:45 Drug: Ondansetron IVP 4 mg Route: IVP; Site: left hand; 3 16:00 Follow up: Response: No adverse reaction 3 16:20 Not Given (Physician Discretion): DuoNeb Nebulize (3:1) (2.5 mg - 0.5 mg) 3 ml 3 Nebulizer once 16:35 Drug: cloNIDine PO 0.1 mg Route: PO; eh3 17:30 Follow up: BP 197 / 97; Response: Blood pressure is lowered eh3 Disposition Summary: 09/22/22 15:26 Discharge Ordered Location: Home 4 Problem: an ongoing problem sk4 Symptoms: have improved sk4 Condition: Stable sk4 Diagnosis - COPD/ Chronic obstructive pulmonary disease with (acute) exacerbation sk4 Discharge Instructions: - Discharge Summary Sheet 4 - Chronic Obstructive Pulmonary Disease Exacerbation 4 Forms: - Medication Reconciliation Form 4 - Thank You Letter sk4 - Antibiotic Education sk4 - Prescription Opioid Use 4 Prescriptions: - Albuterol Sulfate 2.5 mg /3 mL (0.083 %) Inhalation Solution for Nebulization - inhale 1 unit by NEBULIZATION route every 8 hours As needed; 1 Pack; Refills: sk4 0, Product Selection Permitted Signatures: Dispatcher [employer] Yazmin Dyer RN RN [facility] Jose Qureshi [facility]
--- NOTE | 2022-09-22 15:27 | ER ---
Nurse's Notes [facility] Name: Marjan Kolb Age: 67 yrs Sex: Female : 1955 Arrival Date: 09/22/2022 Time: 12:31 Bed DIS2 Private MD: Diagnosis: COPD/ Chronic obstructive pulmonary disease with (acute) exacerbation Presentation: 09/22 12:53 Chief complaint: EMS states: SOB since 0 today. Uses O2 3L NC at home, EMS suspects eh3 something may be wrong with her home O2 system since no SOB once on EMS O2. Also c/o left lower leg edema for past 4 weeks. Coronavirus screen: Vaccine status: Patient reports receiving the 2nd dose of the covid vaccine. Ebola Screen: No symptoms or risks identified at this time. Initial Sepsis Screen: Does the patient meet any 2 criteria? No. Patient's initial sepsis screen is negative. Does the patient have a suspected source of infection? No. Patient's initial sepsis screen is negative. Risk Assessment: Do you want to hurt yourself or someone else? Patient reports no desire to harm self or others. Onset of symptoms was September 22, 2022. 12:53 Method Of Arrival: EMS: [facility] 12:53 Acuity: BLAYNE 3 eh3 Triage Assessment: 12:56 General: Appears in no apparent distress. comfortable, Behavior is calm, cooperative, eh3 appropriate for age. Pain: Denies pain. EENT: No signs and/or symptoms were reported regarding the EENT system. Neuro: Level of Consciousness is awake, alert, obeys commands, Oriented to person, place, time, situation. Cardiovascular: Capillary refill < 3 seconds Patient's skin is warm and dry. Cardiovascular: Edema is 1+ to left ankle and left foot. Respiratory: Reports shortness of breath at rest since 399 today Airway is patent Respiratory effort is even, unlabored, Respiratory pattern is regular, symmetrical, Breath sounds are clear bilaterally. Onset: The symptoms/episode began/occurred this morning, the patient reports symptoms have resolved. GI: Abdomen is round non-distended. : No signs and/or symptoms were reported regarding the genitourinary system. Derm: Skin is pink, warm \T\ dry. Musculoskeletal: No signs and/or symptoms reported regarding the musculoskeletal system. Historical: - Allergies: 12:56 Azithromycin; eh3 12:56 Bactrim; eh3 12:56 butorphanol; eh3 12:56 Fentanyl; eh3 12:56 Reglan; eh3 12:56 Sulfa (Sulfonamide Antibiotics); eh3 12:56 TRIMETHOPRIM; eh3 - Home Meds: 12:56 lisinopril Oral [Active]; Metoprolol Tartrate Oral [Active]; eh3 - PMHx: 12:56 angina pectoris; Anxiety; Atrial fibrillation; Bipolar disorder; esophageal varicies; eh3 Hepatitis; HIV positive; Hypertensive disorder; Migraine; panic attack; - Immunization history:: Adult Immunizations up to date. - Social history:: Smoking status: Patient denies any tobacco usage or history of. Patient/guardian denies using alcohol. Screenin:59 [facility] ED Fall Risk Assessment (Adult) Score/Fall Risk Level 0 - 2 = Low Risk. Abuse eh3 screen: Denies threats or abuse. Denies injuries from another. Nutritional screening: No deficits noted. Tuberculosis screening: No symptoms or risk factors identified. Assessment: 12:59 Reassessment: No changes from previously documented assessment. See triage assessment. eh3 Cardiovascular: Rhythm is sinus rhythm with unifocal PVCs. 14:00 Reassessment: Patient appears in no apparent distress at this time. Patient and/or eh3 family updated on plan of care and expected duration. Pain level reassessed. Patient is alert, oriented x 3, equal unlabored respirations, skin warm/dry/pink. 15:00 Reassessment: Patient appears in no apparent distress at this time. Patient and/or eh3 family updated on plan of care and expected duration. Pain level reassessed. Patient is alert, oriented x 3, equal unlabored respirations, skin warm/dry/pink. 16:00 Reassessment: Patient appears in no apparent distress at this time. Patient and/or eh3 family updated on plan of care and expected duration. Pain level reassessed. Patient is alert, oriented x 3, equal unlabored respirations, skin warm/dry/pink. Vital Signs: 12:53 BP 189 / 95; Pulse 64; Resp 24; Temp 98.6(O); Pulse Ox 97% on 3 lpm NC; Weight 81.65 eh3 kg; Height 5 ft. 4 in. ; Pain 0/10; 14:00 BP 141 / 117; Pulse 67; Resp 19; Pulse Ox 99% on R/A; eh3 15:00 BP 206 / 61; Pulse 64; Resp 19; Pulse Ox 97% on R/A; eh3 16:00 BP 201 / 104; Pulse 66; Resp 14; Pulse Ox 98% on R/A; eh3 17:00 BP 185 / 94; Pulse 67; Resp 18; Pulse Ox 99% on R/A; eh3 17:30 BP 197 / 97; eh3 12:53 Body Mass Index 30.90 (81.65 kg, 162.56 cm) eh3 12:53 Pain Scale: Adult 3 ED Course: 12:53 Patient arrived in ED. eh3 12:55 Jose Qureshi is Attending Physician. 4 12:56 Triage completed. eh3 12:56 Arm band placed on. eh3 12:59 Patient has correct armband on for positive identification. Bed in low position. Call eh3 light in reach. Side rails up X2. Client placed on continuous cardiac and pulse oximetry monitoring. NIBP monitoring applied. Door closed. Noise minimized. 13:05 Yazmin Bennett, RN is Primary Nurse. eh3 13:30 Missed attempt(s): 20 gauge in left Bleeding controlled, band aid applied, catheter tip eh3 intact. 13:56 XRAY Chest (1 view) In Process Unspecified. EDMS 14:49 Inserted saline lock: 24 gauge in left hand, using aseptic technique. Blood collected. ss 18:10 No provider procedures requiring assistance completed. IV discontinued, intact, eh3 bleeding controlled, No redness/swelling at site. Pressure dressing applied. Administered Medications: 14:45 Drug: MethylPrednisoLONE IVP 125 mg Route: IVP; Site: left hand; eh3 16:00 Follow up: Response: No adverse reaction 3 14:45 Drug: morphine IVP or IV 4 mg Route: IVP; Infused Over: 4 mins; Site: left hand; eh3 16:00 Follow up: Response: Pain is decreased eh3 14:45 Drug: Ondansetron IVP 4 mg Route: IVP; Site: left hand; eh3 16:00 Follow up: Response: No adverse reaction eh3 16:20 Not Given (Physician Discretion): DuoNeb Nebulize (3:1) (2.5 mg - 0.5 mg) 3 ml 3 Nebulizer once 16:35 Drug: cloNIDine PO 0.1 mg Route: PO; 3 17:30 Follow up: BP 197 / 97; Response: Blood pressure is lowered [facility] Medication: 18:10 VIS not applicable for this client. 3 Outcome: 15:26 Discharge ordered by MD. rahman 18:10 Discharged to home ambulatory, with family. 3 18:10 Condition: stable 18:10 Discharge instructions given to patient, Instructed on discharge instructions, follow up and referral plans. Demonstrated understanding of instructions, follow-up care. 18:10 Patient left the ED. 3 Signatures: Dispatcher [employer] EDMS Sandra Cadet RN RN Yazmin Bennett RN RN [facility] Jose Qureshi [facility] Corrections: (The following items were deleted from the chart) 12:59 12:53 Chief complaint: EMS states: SOB since 0400 today. Uses O2 3L NC at home, EMS 3 suspects something may be wrong with her home O2 system since no SOB once on EMS O2. Also c/o right lower leg edema for [facility]
[2022-09-22] MEDS ORDERED: cloNIDine HCL 0.1 MG TAB ONE (16:39)
[2022-09-22 18:40] VITALS: TEMP 98.6
[2022-09-22 18:47] VITALS: O2SAT 99
[2022-09-22 18:49] VITALS: BP 197/97
== END 2022-09-22 18:10 | disposition home or self-care (01) ==
LOC: ER 12:31
DX: J44.1 Chronic obstructive pulmonary disease with (acute) exacerbation (principal); I10 Essential (primary) hypertension; I48.91 Unspecified atrial fibrillation; Z21 Asymptomatic human immunodeficiency virus [HIV] infection status; Z88.1 Allergy status to other antibiotic agents; Z88.2 Allergy status to sulfonamides; Z88.3 Allergy status to other anti-infective agents; Z88.5 Allergy status to narcotic agent; Z88.8 Allergy status to other drugs, medicaments and biological substances
CPT/HCPCS: 85025; 80048; 36415; 84484; 71045; J7613; J2930; J2405; 96374; 96375; 99284

== ENCOUNTER 2022-09-24 09:21 | Emergency (ER) | payer OTHER ==
--- OUTSIDE RECORDS SUMMARY | 2022-09-24 09:43 | XMS REPORT | Continuity of Care Document ---
:1955 Author Organization [facility] t Address [address] [place] [address] Care Team Providers Name Role Phone SERA RAHMAN Primary Care Physician Unavailable ELAN LIRA Attending Clinician Unavailable REGINA LAYTONKOURTNEYJENSEN Attending Clinician Unavailable SANTIAGO CARDENAS Attending Clinician Unavailable Santiago Sanchez Attending Clinician HOME MATTHEWS Attending Clinician Unavailable Home Santamaria Attending Clinician THERESA HICKMAN Attending Clinician Unavailable Theresa Hickman DO Attending Clinician ANETTE OLEA Attending Clinician Unavailable Anette Olea MD Attending Clinician PAULETTE GRAY Attending Clinician Unavailable Isaac PAC Paulette S Attending Clinician UNKNOWN, ATTENDING Attending Clinician Unavailable Robbi Bal Attending Clinician [facility] Attending Clinician Unavailable Isaias Whiteside RN Attending Clinician Unavailable TOMY MARIE Attending Clinician Unavailable Reilly Means MD Attending Clinician Ofe Shields MD Attending Clinician Tomy Marie MD Attending Clinician Doctor Unassigned, Gerster Attending Clinician Unavailable Bill COLES Attending Clinician Unavailable Bill Rose Attending Clinician CHARITY MCALLISTER Attending Clinician Unavailable Charity Mcallister MD Attending Clinician GADIEL KOEHLER Attending Clinician Unavailable Mike Lund Attending Clinician Unavailable NIKOLAI REEVES Attending Clinician Unavailable Eliseo Arce MD Attending Clinician Carol Ann IZQUIERDO, Sarai Lieberman Attending Clinician [phone] Ashly Franco MA Attending Clinician Unavailable Dagoberto Bass MD Attending Clinician Cuba Evangelista Attending Clinician Lab, [facility] I Attending Clinician Unavailable Monica Rodas MA Attending Clinician Unavailable Agustina Ortiz MA Attending Clinician Unavailable Andrez RAMIREZ, Rody Attending Clinician Unavailable Kirit Flood MD, V. Attending Clinician HEMATPOUR, BEVERLY Attending Clinician Unavailable Caridad HUITRONP, Gloria Attending Clinician Xiao RAMIREZ, Michael Corbin Attending Clinician Unavailable Team, [facility] Attending Clinician UnavailDO PORHSA Newell Attending Clinician Unavailable Gadiel Koehler MD Attending Clinician Tyrone JENKINS, Eveline Sierra Attending Clinician Eladio Colorado RN Attending Clinician Unavailable Geraldine SALGUERO, Leyda Attending Clinician [phone] Selvin RAMIREZ, Stefanie Attending Clinician Unavailable HOME MATTHEWS Admitting Clinician Unavailable ANETTE OLEA Admitting Clinician Unavailable TOMY MARIE Admitting Clinician Unavailable Becca JENKINS, Tomy Admitting Clinician Bill COLES Admitting Clinician Unavailable Lcaey UrmilaBibianaFrancisco Kristen Admitting Clinician Unavailable Mike Lund Admitting Clinician Unavailable ELISEO ARCE Admitting Clinician Unavailable DO PORSHA STREETER Admitting Clinician Unavailable Payers Payer Name Policy Type Policy Number Effective Date Expiration Date S gabino [facility] [id number] 2012 STAR PLUS OON 00:00:00 [facility] [id number] 2019 DUAL COMPLETE HMO 00:00:00 [facility] STAR [id number] 2019 PLUS 00:00:00 MEDICAID [facility] [id number] 2020 00:00:00 [employer] [facility] [id number] 2019 [facility] STAR 00:00:00 [employer] MEDICARE ADV [id number] 2019 2019 00:00:00 00:00:00 Problems Condition Condition Condition Status Onset Resolution Last Treating Co mments Source Name Details Category Date Date Treatment Clinician Date Dyspnea, Dyspnea, Disease Active Unive rs unspecifie unspecifie 02-11 it y of d type d type 00:00: [address] Branch Gastropare Gastropare Disease Active Overview : Methodi sis sis 4-[address] 00:00: [facility] note l might be different from the original. Added automatic ally from request for surgery [id number] Dysphagia Dysphagia Disease Active Overview: Methodi 4-[address] 00:00: g of this [facility]osp[facility] 00 note l might be different from the original. 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 2020-10-15 Get PVI PVI 3-30 17:07:00 l ABLATION ABLATION 00:00: Patel n W/ CARTO / W/ CARTO / 00 GA / T GA / T Active 08/19/2020 [facility] Food Food Disease Active 2019-05 [...] N/V [facility] hoxazole - Clear 00:00: [facility] trimetho DA Active SV [facility] prim - Clear 00:00: [facility] codeine DA Active SV N/V [facility] - Clear 00:00: [facility] Metoclop Propensi Active [place] ramide ty to 12-12 Health adverse 00:00: reaction 00 s BUTORPHA DRUG Active Unknown-Cmnt Un matt NOL INGREDI 11-25 ity of 00:00: Medical Branch Butorpha Drug Active Unknown - Unive rs nol Allergy See comments 11-25 ity of 00:00: [facility] Branch Sulfamet Propensi Active [place] hoxazole ty [...] Hives Univers INGREDI 208 ity of 00:00: Medical Branch TRIMETHO DRUG Active Hives 2018-0 [...] 2015-05 Stomach Univers hoxazole ty to comments - pain ity of adverse 00:00: [place] reaction 00 Medical s Branch METOCLOP DRUG Active Anxiety 0 Univers RAMIDE INGREDI 9-25 ity of HCL 00:00: [place] 00 Medical Branch Metoclop Propensi Active Anxiety 0 Unive rs ramide ty to 9-25 ity [...] Branch drug Bactrim Bactrim Active [facility] [place] Family History Family Member Diagnosis Comments Start Date Stop Date Source Natural father Diabetes [facility] Natural father Other - see comments [facility] Natural [facility] father [facility] Natural mother [facility] Social History Social Habit Start Date Stop Date Quantity Comments Source Gender identity 2020-10-06 Identifies as [facility] 15:23:56 female gender Hospital (finding) Sexual orientation [facility] History SDOH [facility] Alcohol Frequency Hospita l History SDOH [facility] Alcohol Std Drinks Hospit al History SDOH [facility] Alcohol Binge Hospital History of Social 2022-08-26 2022-08-[address] function 00:00:00 00:00:00 Hospital Exposure to 2022-04-30 2022-05-10 Yes University of SARS-CoV-2 (event) 00:00:00 10:25:00 [facility] Tobacco Comment 2022-02-11 2022-02-11 Smokes approx 1-2 Un iversity of 00:00:00 00:00:00 cigarettes per [facility] day when she Branch smokes Alcohol intake 2020-12-08 2020-12-08 Current drinker [facility] dist 00:00:00 00:00:00 of [facility] (finding) Tobacco use and 2020-10-31 2020-10-31 Smokeless tobacco [place] [facility] exposure 00:00:00 00:00:00 non-user Cigarettes smoked 2020-09-05 2020-09-[address] current (pack per 00:00:00 00:00:00 Hospita l day) - Reported Cigarette 2020-09-05 2020-09-05 [facility] pack-years 00:00:00 00:00:00 Hospital Alcohol Comment 2016-09-23 2016-09-23 rare [facility] 00:00:00 00:00:00 Hospital History of tobacco 2011-09-29 User of smokeless University of use 00:00:00 tobacco [facility] Sex [facility]igned At [birth year] [facility] 00:[facility] 00:00:00 Smoking Status Start Date Stop Date Source Ex-smoker 2020-10-31 00:00:00 2020-10-31 00:00:00 [facility] Ordered Filled Start Stop Current Ordering Indication Dosage Frequency Signature Comments Components Source Medication Medication Date Date Medication? Clinician (SIG) Name Name ravindra Yes [id number] Take one Univers ne-tenofovi 4-04 po daily ity of r alafen 00:00: [place] (DESCOVY) 00 Medical tablet Branch emtricbao Yes [id number] Take one Univers ne-tenofovi 4-04 po daily ity of r alafen 00:00: [place] (DESCOVY) 00 Medical tablet Branch potassium 2021-05 No 10meq 10 mEq, IV Univers chloride in 07-11 Piggyback, i ty of water 10 20:00: 22:00 ONCE, 1 [place] mEq/100 mL 00 :00 dose, On Medic al RTU 10 mEq [facility] 05/10/22 at 1400, Administer over 60 Minutes, 100 mL magnesium 2021-05 No 800mg 800 mg, Uni vers oxide 07-11 Oral, ity of (MAG-OX 20:00: 19:37 ONCE, 1 [place] 400) tablet 00 :00 dose, On Medi porfirio 800 mg [facility] 05/10/22 at 1400, Routine KCL 2021-05 No 40meq 40 mEq, Univers (KLOR-CON 07-11 Oral, ity of M20) tablet 19:15: 19:37 [place]CE[place] 1 [place] 40 mEq 00 :00 dose, On Medical [facility] 05/10/22 at 1315, JOE hydralAZINE 2021-05 No 10mg 10 mg, Uni vers (APRESOLINE 07-11 Slow IV ity of ) injection 18:45: 18:42 [place] 10 mg 00 :00 ONCE, 1 Medical dose, On Branch [facility] 05/10/22 at 1245, JOE NaCl 0.9% 2021-05- No 1000mL at 999 Uni vers (NS) bolus 07-11 mL/hr, ity of infusion 17:45: 20:00 1,000 mL, [place] 1,000 mL 00 :00 IV Medical Infusion, Branch ONCE, 1 dose, On Tue05/10/22 at 1145, JOE cefpodoxime 2021-05- No [id number] 100mg Take 1 Univers 100 mg 2-17 12-25 tablet by ity of tablet 00:00: 05:59 mouth in [place] 00 :00 the Medical morning Branch and 1 tablet in the evening. Do all this for 7 days. cefpodoxime 2021-05- No [id number] 100mg Take 1 Univers 100 mg 2-17 12-25 tablet by ity of tablet 00:00: 05:59 mouth in [place] 00 :00 the [facility] morning Branch and 1 tablet in the evening. Do all this for 7 days. cefpodoxime 2021-05- No [id number] 100mg Take 1 Univers 100 mg 2-17 12-25 tablet by ity of tablet 00:00: 05:59 mouth in [place] 00 :00 the [facility] morning [place] and 1 tablet in the evening. Do [...] On [place] 05/06/22 at 1800, JOE ketorolac 2021-05 No [...] 05/06/22 at 1515, JOE ondansetron 2021-05 Yes [id number] 1-2 U nivers 4 mg tablet 2-15 tablets ity o f 00:00: every 8 [place] 00 hours as Medical needed for Branch nausea benzonatate 2021-05 Yes [id number] 200mg Take 1 Univers 200 mg 2-15 capsule by ity of capsule 00:00: mouth 3 [place] 00 (three) Medical times Branch daily as needed for Cough. albuterol 2021-05 Yes [id number] 2{puff} Inhale 2 Univers 90 2-15 Puffs ity of mcg/actuati 00:00: every 4 [place] on inhaler 00 (four) Medical hours as Branch needed for Wheezing or Shortness of Breath. butalbital- 2021-05 Yes [id number] 1{tbl} Take 1 Univers acetaminoph 2-15 tablet by ity of en-caff 00:00: mouth [place] 50-325-40 00 every 4 Medical mg tablet (four) Branch hours as needed (headache) . ondansetron 2021-05 Yes [id number] 1-2 U nivers 4 mg tablet 2-15 tablets ity o f 00:00: every 8 [place] 00 hours as Medical needed for Branch nausea benzonatate 2021-05 Yes [id number] 200mg Take 1 Univers 200 mg 2-15 capsule by ity of capsule 00:00: mouth 3 [place] 00 (three) Medical times Branch daily as needed for Cough. albuterol 2021-05 Yes [id number] 2{puff} Inhale 2 Univers 90 2-15 Puffs ity of mcg/actuati 00:00: every 4 [place] on inhaler 00 (four) Medical hours as Branch needed for Wheezing or Shortness of Breath. butalbital- 2021-05 Yes [id number] 1{tbl} Take 1 Univers acetaminoph 2-15 tablet by ity of en-caff 00:00: mouth [place] 50-325-40 00 every 4 Medical mg tablet (four) Branch hours as needed (headache) . ondansetron 2021-05 Yes [id number] 1-2 U nivers 4 mg tablet 2-15 tablets ity o f 00:00: every 8 [place] 00 hours as Medical needed for Branch nausea benzonatate 2021-05 Yes [id number] 200mg Take 1 Univers 200 mg 2-15 capsule by ity of capsule 00:00: mouth 3 [place] 00 (three) Medical times Branch daily as needed for Cough. albuterol 2021-05 Yes [id number] 2{puff} Inhale 2 Univers 90 2-15 Puffs ity of mcg/actuati 00:00: every 4 [place] on inhaler 00 (four) Medical hours as Branch needed for Wheezing or Shortness of Breath. butalbital- 2021-05 Yes [id number] 1{tbl} Take 1 Univers acetaminoph 2-15 tablet by ity of en-caff 00:00: mouth [place] 50-325-40 00 every 4 Medical mg tablet (four) Branch hours as needed (headache) . ondansetron 2021-05 Yes [id number] 1-2 U nivers 4 mg tablet 2-15 tablets ity o f 00:00: every 8 [place] 00 hours as Medical needed for Branch nausea benzonatate 2021-05 Yes [id number] 200mg Take 1 Univers 200 mg 2-15 capsule by ity of capsule 00:00: mouth 3 [place] 00 (three) Medical times Branch daily as needed for Cough. albuterol 2021-05 Yes [id number] 2{puff} Inhale 2 Univers 90 2-15 Puffs ity of mcg/actuati 00:00: every 4 [place] on inhaler 00 (four) Medical hours as Branch needed for Wheezing or Shortness of Breath. butalbital- 2021-05 Yes [id number] 1{tbl} Take 1 Univers acetaminoph 2-15 tablet by ity of en-caff 00:00: mouth [place] 50-325-40 00 every 4 Medical mg tablet (four) Branch hours as needed (headache) . ondansetron 2021-05 Yes [id number] 1-2 U nivers 4 mg tablet 2-15 tablets ity o f 00:00: every 8 [place] 00 hours as Medical needed for Branch nausea benzonatate 2021-05 Yes [id number] 200mg Take 1 Univers 200 mg 2-15 capsule by ity of capsule 00:00: mouth 3 [place] 00 (three) Medical times Branch daily as needed for Cough. albuterol 2021-05 Yes [id number] 2{puff} Inhale 2 Univers 90 2-15 Puffs ity of mcg/actuati 00:00: every 4 [place] on inhaler 00 (four) Medical hours as Branch needed for Wheezing or Shortness of Breath. butalbital- 2021-05 Yes [id number] 1{tbl} Take 1 Univers acetaminoph 2-15 tablet by ity of en-caff 00:00: mouth [place] 50-325-40 00 every 4 Medical mg tablet (four) Branch hours as needed (headache) . ondansetron 2021-05 Yes [id number] 1-2 U nivers 4 mg tablet 2-15 tablets ity o f 00:00: every 8 [place] 00 hours as Medical needed for Branch nausea benzonatate 2021-05 Yes [id number] 200mg Take 1 Univers 200 mg 2-15 capsule by ity of capsule 00:00: mouth 3 [place] 00 (three) Medical times Branch daily as needed for Cough. albuterol 2021-05 Yes [id number] 2{puff} Inhale 2 Univers 90 2-15 Puffs ity of mcg/actuati 00:00: every 4 [place] on inhaler 00 (four) Medical hours as Branch needed for Wheezing or Shortness of Breath. butalbital- 2021-05 Yes [id number] 1{tbl} Take 1 Univers acetaminoph 2-15 tablet by ity of en-caff 00:00: mouth [place] 50-325-40 00 every 4 Medical mg tablet (four) Branch hours as needed (headache) . ondansetron 2021-05 Yes [id number] 1-2 U nivers 4 mg tablet 2-15 tablets ity o f 00:00: every 8 [place] 00 hours as Medical needed for Branch nausea benzonatate 2021-05 Yes [id number] 200mg Take 1 Univers 200 mg 2-15 capsule by ity of capsule 00:00: mouth 3 [place] 00 (three) Medical times Branch daily as needed for Cough. albuterol 2021-05 Yes [id number] 2{puff} Inhale 2 Univers 90 2-15 Puffs ity of mcg/actuati 00:00: every 4 [place] on inhaler 00 (four) Medical hours as Branch needed for Wheezing or Shortness of Breath. butalbital- 2021-05 Yes [id number] 1{tbl} Take 1 Univers acetaminoph 2-15 tablet by ity of en-caff 00:00: mouth [place] 50-325-40 00 every 4 Medical mg tablet (four) Branch hours as needed (headache) . ondansetron 2021-05 Yes [id number] 1-2 U nivers 4 mg tablet 2-15 tablets ity o f 00:00: every 8 [place] 00 hours as Medical needed for Branch nausea benzonatate 2021-05 Yes [id number] 200mg Take 1 Univers 200 mg 2-15 capsule by ity of capsule 00:00: mouth 3 [place] 00 (three) Medical times Branch daily as needed for Cough. albuterol 2021-05 Yes [id number] 2{puff} Inhale 2 Univers 90 2-15 Puffs ity of mcg/actuati 00:00: every 4 [place] on inhaler 00 (four) Medical hours as Branch needed for Wheezing or Shortness of Breath. butalbital- 2021-05 Yes [id number] 1{tbl} Take 1 Univers acetaminoph 2-15 tablet by ity of en-caff 00:00: mouth [place] 50-325-40 00 every 4 Medical mg tablet (four) Branch hours as needed (headache) . nirmatrelvi 2021-05- No [id number] 2{tbl} Take 2 Univers r-ritonavir 2-15 12-21 tablets by i ty of (PAXLOVID, 00:00: 05:59 mouth in [place] EUA,) 300 00 :00 the Medical mg (150 mg morning Branch x 2)-100 mg and 2 tablet tablets in the evening. Do all this for 5 days. nirmatrelvi 2021-05- No [id number] 2{tbl} Take 2 Univers r-ritonavir 2-15 12-21 tablets by i ty of (PAXLOVID, 00:00: 05:59 mouth [place] EUA,) 300 00 :00 the Medical mg (150 mg morning Branch x 2)-100 mg and 2 tablet tablets in the evening. Do all this for 5 days. nirmatrelvi 2021-05- No [id number] 2{tbl} Take 2 Univers r-ritonavir 2-15 12-21 tablets by i ty of (PAXLOVID, 00:00: 05:59 mouth [place] EUA[place] 300 00 :00 the Medical mg (150 mg morning Branch x 2)-100 mg and 2 tablet tablets in the evening. Do all this for 5 days. nirmatrelvi 2021-05- No [id number] 2{tbl} Take 2 Univers r-ritonavir 2-15 12-21 [...] 04/22/22 at 1645, Routine amoxicillin 2021-05 Yes [id number] 1{tbl} Take 1 Univers -clavulanat 2- [id number] tablet by i ty of e 875-125 00:00: mouth [place] mg per 00 every 12 Medical tablet (twelve) Branch hours. ondansetron 2021-05 Yes [id number] 4mg Take 1 Univers 4 mg 2- 321410 tablet by ity of disintegrat 00:00: mouth [place] ing tablet 00 every 8 Medica l (eight) Branch hours as needed for Nausea and Vomiting (N/V). amoxicillin 2021-05 Yes [id number] 1{tbl} Take 1 Univers -clavulanat 2-01 [id number] tablet by i ty of e 875-125 00:00: mouth [place] mg per 00 every 12 Medical tablet (twelve) Branch hours. ondansetron 2021-05 Yes [id number] 4mg Take 1 Univers 4 mg 2- [id number] tablet by ity of disintegrat 00:00: mouth [place] ing tablet 00 every 8 Medica l (eight) Branch hours as needed for Nausea and Vomiting (N/V). amoxicillin 2021-05 Yes [id number] 1{tbl} Take 1 Univers -clavulanat 2-01 [id number] tablet by i ty of e 875-125 00:00: mouth [place] mg per 00 every 12 Medical tablet (twelve) Branch hours. ondansetron 2021-05 Yes [id number] 4mg Take 1 Univers 4 mg 2- [id number] tablet by ity of disintegrat 00:00: mouth [place] ing tablet 00 every 8 Medica l (eight) Branch hours as needed for Nausea and Vomiting (N/V). amoxicillin 2021-05 Yes [id number] 1{tbl} Take 1 Univers -clavulanat 2-01 [id number] tablet by i ty of e 875-125 00:00: mouth [place] mg per 00 every 12 Medical tablet (twelve) Branch hours. ondansetron 2021-05 Yes [id number] 4mg Take 1 Univers 4 mg 2- [id number] tablet by ity of disintegrat 00:00: mouth [place] ing tablet 00 every 8 Medica l (eight) Branch hours as needed for Nausea and Vomiting (N/V). amoxicillin 2021-05 Yes [id number] 1{tbl} Take 1 Univers -clavulanat 2-01 [id number] tablet by i ty of e 875-125 00:00: mouth [place] mg per 00 every 12 Medical tablet (twelve) Branch hours. ondansetron 2021-05 Yes [id number] 4mg Take 1 Univers 4 mg 2- [id number] tablet by ity of disintegrat 00:00: mouth [place] ing tablet 00 every 8 Medica l (eight) Branch hours as needed for Nausea and Vomiting (N/V). amoxicillin 2021-05 Yes [id number] 1{tbl} Take 1 Univers -clavulanat 2-01 [id number] tablet by i ty of e 875-125 00:00: mouth [place] mg per 00 every 12 Medical tablet (twelve) Branch hours. ondansetron 2021-05 Yes [id number] 4mg Take 1 Univers 4 mg 2-01 [id number] tablet by ity of disintegrat 00:00: mouth [place] ing tablet 00 every 8 Medica l (eight) Branch hours as needed for Nausea and Vomiting (N/V). amoxicillin 2021-05 Yes [id number] 1{tbl} Take 1 Univers -clavulanat 2-01 [id number] tablet by i ty of e 875-125 00:00: mouth [place] mg per 00 every 12 Medical tablet (twelve) Branch hours. ondansetron 2021-05 Yes [id number] 4mg Take 1 Univers 4 mg 2- 251440 tablet by ity of disintegrat 00:00: mouth [place] ing tablet 00 every 8 Medica l (eight) Branch hours as needed for Nausea and Vomiting (N/V). amoxicillin 2021-05 Yes [id number] 1{tbl} Take 1 Univers -clavulanat 2-01 [id number] tablet by i ty of e 875-125 00:00: mouth [place] mg per 00 every 12 Medical tablet (twelve) Branch hours. ondansetron 2021-05 Yes [id number] 4mg Take 1 Univers 4 mg 2- [id number] tablet by ity of disintegrat 00:00: mouth [place] ing tablet 00 every 8 Medica l (eight) Branch hours as needed for Nausea and Vomiting (N/V). amoxicillin 2021-05 Yes [id number] 1{tbl} Take 1 Univers -clavulanat 2-01 [id number] tablet by i ty of e 875-125 00:00: mouth [place] mg per 00 every 12 Medical tablet (twelve) Branch hours. ondansetron 2021-05 Yes [id number] 4mg Take 1 Univers 4 mg 2- [id number] tablet by ity of disintegrat 00:00: mouth [place] ing tablet 00 every 8 Medica l (eight) Branch hours as needed for Nausea and Vomiting (N/V). amoxicillin 2021-05 Yes [id number] 1{tbl} Take 1 Univers -clavulanat 2-01 [id number] tablet by i ty of e 875-125 00:00: mouth [place] mg per 00 every 12 Medical tablet (twelve) Branch hours. ondansetron 2021-05 Yes [id number] 4mg Take 1 Univers 4 mg 2-01 [id number] tablet by ity of disintegrat 00:00: mouth [place] ing tablet 00 every 8 Medica l (eight) Branch hours as needed for Nausea and Vomiting (N/V). zoster 2021-05- No [id number] .5mL 0.5 mL by Univers vaccine, 0-05 03- 9104 Intramuscu ity of recombinant 00:00: 04:59 lar route [place] (SHINGRIX, 00 :00 once now Medic al PF,) for 1 Branch injection dose. And repeat in 2-6 months zoster 2021-05- No [id number] .5mL 0.5 mL by Univers vaccine, 0-05 03- 9104 Intramuscu ity of recombinant 00:00: 04:59 lar route [place] (SHINGRIX, 00 :00 once now Medic al PF,) for 1 Branch injection dose. And repeat in 2-6 months zoster 2021-05- No [id number] .5mL 0.5 mL by Univers vaccine, 0- [...] 1 mg tablet 19:28: at [place] [address] bedtime. Medical Branch traZODone Yes 50mg Take 50 mg Un matt 100 mg 9-27 by mouth ity of tablet 19:28: at [place] [address] bedtime. Medical Branch hydralAZINE Yes 25mg Take [...] 1 mg tablet 19:28: at [place] [address] bedtime. Medical Branch traZODone 2021-0 Yes 50mg Take 50 mg Un matt 100 mg 9-27 by mouth ity of tablet 19:28: at [place] [address] bedtime. Medical Branch hydralAZINE 2021-0 Yes 25mg [...] 1 mg tablet 19:28: at [place] [address] bedtime. Medical Branch traZODone 2022-0 Yes 50mg Take 50 mg Un matt 100 mg 9-27 by mouth ity of tablet 19:28: at [place] [address] bedtime. Medical Branch hydralAZINE 2022-0 Yes 25mg [...] 1 mg tablet 19:28: at [place] [address] bedtime. Medical Branch traZODone 2-0 Yes 50mg Take 50 mg Un matt 100 mg 9-27 by mouth ity of tablet 19:28: at [place] [address] bedtime. Medical Branch hydralAZINE 2-0 Yes 25mg [...] 1 mg tablet 19:28: at [place] [address] bedtime. Medical Branch traZODone 2021-0 Yes 50mg Take 50 mg Un matt 100 mg 9-27 by mouth ity of tablet 19:28: at [place] [address] bedtime. Medical Branch hydralAZINE 2021-0 Yes 25mg [...] 1 mg tablet 19:28: at [place] [address] bedtime. Medical Branch traZODone 2021-0 Yes 50mg Take 50 mg Un matt 100 mg 9-27 by mouth ity of tablet 19:28: at [place] [address] bedtime. Medical Branch hydralAZINE 2021-0 Yes 25mg [...] 1 mg tablet 19:28: at [place] [address] bedtime. Medical Branch traZODone 2021-0 Yes 50mg Take 50 mg Un matt 100 mg 9-27 by mouth ity of tablet 19:28: at [place] [address] bedtime. Medical Branch hydralAZINE 2021-0 Yes 25mg [...] 1 mg tablet 19:28: at [place] [address] bedtime. Medical Branch traZODone 2021-0 Yes 50mg Take 50 mg Un matt 100 mg 9-27 by mouth ity of tablet 19:28: at [place] [address] bedtime. Medical Branch hydralAZINE 2021-0 Yes 25mg [...] 1 mg tablet 19:28: at [place] [address] bedtime. Medical Branch traZODone 2021-0 Yes 50mg Take 50 mg Un matt 100 mg 9-27 by mouth ity of tablet 19:28: at [place] [address] bedtime. Medical Branch hydralAZINE 2021-0 Yes 25mg [...] 1 mg tablet 19:28: at [place] [address] bedtime. Medical Branch traZODone 2021-0 Yes 50mg Take 50 mg Un matt 100 mg 9-27 by mouth ity of tablet 19:28: at [place] [address] bedtime. Medical Branch hydralAZINE 2021-0 Yes 25mg [...] 1 mg tablet 19:28: at [place] [address] bedtime. Medical Branch traZODone 2021-0 Yes 50mg Take 50 mg Un matt 100 mg 9-27 by mouth ity of tablet 19:28: at [place] [address] bedtime. Medical Branch hydralAZINE 2021-0 Yes 25mg [...] 1 mg tablet 19:28: at [place] [address] bedtime. Medical Branch traZODone 2021-0 Yes 50mg Take 50 mg Un matt 100 mg 9-27 by mouth ity of tablet 19:28: at [place] [address] bedtime. Medical Branch hydralAZINE 2021-0 Yes 25mg [...] 1 mg tablet 19:28: at [place] [address] bedtime. Medical Branch traZODone 2021-0 Yes 50mg Take 50 mg Un matt 100 mg 9-27 by mouth ity of tablet 19:28: at [place] [address] bedtime. Medical Branch hydralAZINE 2021-0 Yes 25mg [...] 100 mg 04 (two) Medical tablet times [place] daily. amLODIPine 2021-0 Yes 10mg Take 10 mg U nivers (NORVASC) 9-27 by mouth ity of 10 mg 19:28: daily. [place] tablet 04 Medical Branch clonazePAM 2021-0 Yes 1mg Take 1 mg Un matt (KLONOPIN) 9-27 by mouth ity o f 1 mg tablet 19:28: at [place] [address] bedtime. Medical Branch traZODone 2021-0 Yes 50mg Take 50 mg Un matt 100 mg 9-27 by mouth ity of tablet 19:28: at [place] [address] bedtime. Medical Branch hydralAZINE 2021-0 Yes 25mg [...] 1 mg tablet 19:28: at [place] [address] bedtime. Medical Branch traZODone 2-0 Yes 50mg Take 50 mg Un matt 100 mg 9-27 by mouth ity of tablet 19:28: at [place] [address] bedtime. Medical Branch hydralAZINE 2021-0 Yes 25mg [...] 1 mg tablet 19:28: at [place] [address] bedtime. Medical Branch traZODone 2022-0 Yes 50mg Take 50 mg Un matt 100 mg 9-27 by mouth ity of tablet 19:28: at [place] [address] bedtime. Medical Branch hydralAZINE 2-0 Yes 25mg [...] 1 mg tablet 19:28: at [place] [address] bedtime. Medical Branch traZODone 2021-0 Yes 50mg Take 50 mg Un matt 100 mg 9-27 by mouth ity of tablet 19:28: at [place] [address] bedtime. Medical Branch hydralAZINE 2021-0 Yes 25mg [...] 1 mg tablet 19:28: at [place] [address] bedtime. Medical Branch traZODone 2-0 Yes 50mg Take 50 mg Un matt 100 mg 9-27 by mouth ity of tablet 19:28: at [place] 04 bedtime. [facility] cefpodoxime 2021- No [id number] 200mg Take 1 Univers 200 mg 02-16 tablet by ity of tablet 00:00: 04:59 mouth in [place] 00 :00 the [facility] morning Branch and 1 tablet in the evening. Do all this for 3 days. cefpodoxime 2021- No [id number] 200mg Take 1 Univers 200 mg 02-16 tablet by ity of tablet 00:00: 04:59 mouth in [place] 00 :00 the [facility] morning [place] and 1 tablet in the evening. Do all this for 3 days. haloperidol 2021- No 2mg 2 mg, Slow Univers lactate 02-15 IV Push, ity of (HALDOL) 09:00: 09:12 ONCE, 1 [place] injection 2 00 :00 dose, On Medi porfirio mg [facility] 02/15/22 at 0400, Routine hydroCHLORO 0 Yes 25mg 25 mg, Univ ers thiazide 25 Oral, ity of (ESIDRIX) 14:00: DAILY, [place] capsule 25 00 First dose Med ical mg on [facility] 02/14/22 at 0900, Until Discontinu ed, Routine butalbital- 0 Yes 1{tbl} 1 tablet, [facility] acetaminoph 02-13 Oral, ity of en-caff 18:46: Q6HPRN, [place] (ESGIC) 06 Starting Medical 50-325-40 on [facility] Branch mg tablet 1 02/13/22 at tablet 1346, Until Discontinu ed, Routine, headaches dicyclomine 2021-0 Yes 10mg 10 mg, Univ ers (BENTYL) 24 Oral, QID, ity o f capsule 10 17:00: First dose [place] mg 00 on [facility] 02/13/22 at Branch 1200, Until Discontinu ed, Routine tiZANidine 2021-0 Yes 4mg 4 mg, Univer s (ZANAFLEX) 02-12 Oral, Q8H, ity of tablet 4 mg 19:00: First dose [place] 00 on Fri [facility] 02/12/22 at Branch 1400, Until Discontinu ed, Routine HYDROmorpho 2021-0 Yes 4mg 4 mg, Unive rs ne [...] of 2,000 mg in 17:00: 18:24 [place]gy[place], [place] NaCl 0.9% 00 :00 Q24H ABX, Medic [...] :00 dose, On Medic al mg [facility] Branch 02/11/22 at 1645, Routine nitroglycer Yes .4mg 0.4 mg, Uni vers in 02-11 Sublingual ity of (NITROSTAT) 21:31: , Q5MIN [place] sublingual 20 PRN, Medical tablet 0.4 Starting Branc h mg on [facility] 02/11/22 at 1631, Until Discontinu ed, Routine, Chest pain cloNIDine Yes .1mg 0.1 mg, Unive rs (CATAPRES) 02-11 Oral, ity of tablet 0.1 21:18: TIDPRN, [place] mg 37 Starting Medical on [place] Branch 02/11/22 at 1618, Until Discontinu ed, Routine, SBP > 170 nystatin-tr Yes Topical, Un matt iamcinolone 02-11 TID, First it y of (MYCOLOG) 19:00: dose on [place] cream 00 [facility] Medical 02/11/22 at Branch 1400, Until Discontinu ed, Routine busPIRone Yes 30mg 30 mg, Univer s (BUSPAR) 02-11 Oral, BID, ity o f tablet 30 18:00: First dose [place] mg 00 on [facility] Medical 02/11/22 at Branch 1300, Until Discontinu ed, Routine raltegravir Yes 400mg 400 mg, Un matt (ISENTRESS) 02-11 Oral, BID, it y of tablet 400 18:00: First dose [place] mg 00 on [facility] Medical 02/11/22 at Branch 1300, Until Discontinu ed, JOE metoprolol 2021-0 Yes 100mg 100 mg, Uni vers tartrate 02-11 Oral, BID, ity o f (LOPRESSOR) 18:00: First dose [place] tablet 100 00 on [facility] Medical mg 02/11/22 at Branch 1300, Until Discontinu ed, Routine lisinopriL 0 Yes 40mg 40 mg, Unive rs (PRINIVIL,Z 02-11 Oral, BID, it y of ESTRIL) 18:00: First [place] tablet 40 00 on [facility] Medical mg 02/11/22 at Branch 1300, Until Discontinu ed, Routine emtricitabi 0 Yes 1{tbl} 1 tablet, [facility] ne-tenofovi 02-11 Oral, ity of r alafen 18:00: DAILY, [place] (DESCOVY) 00 First dose Medi porfirio tablet 1 on [facility] tablet 02/11/22 at 1300, Until Discontinu ed, Routine ipratropium 0 Yes .5mg 0.5 mg, Uni vers (ATROVENT) 02-11 Inhalation ity of 0.02 % 17:57: , JULIETTEDPRN, [place] nebulizer 10 Starting Medica l solution on [facility] Branch 0.5 mg 02/11/22 at 1257, Until Discontinu ed, Routine, Wheezing, Shortness of Breath amLODIPine 0 Yes 10mg 10 mg, Unive rs (NORVASC) 02-11 Oral, ity of tablet 10 17:30: DAILY, [place] mg 00 First dose Medical (after Branch last modificati on) on [facility] 02/11/22 at 1230, Until Discontinu ed, Routine hydrALAZINE 2021- No 25mg 25 mg, Uni vers (APRESOLINE 02-11 Oral, ity of ) tablet 25 17:30: 12:54 DAILY, [place] mg 00 :55 First dose Medical (after Branch last modificati on) on [facility] 02/11/22 at 1230, Until Discontinu ed, [...] ity of (TYLENOL 14:06: 17:37 [facility] [place] #[facility] 300-30 19 :24 Starting Medic al mg tablet 1 on [place] Branch tablet 02/11/22 at 0906, Until Tue02/12/22 at 1237, Routine, Pain (scale 4-6) sennosides- 0 Yes 1{tbl} 1 tablet, Univers docusate 02-11 Oral, ity of sodium 14:06: QDAILYPRN, [place] (SENOKOT-S) 09 Starting Medi porfirio 8.6-50 mg on [facility] per tablet 02/11/22 at 1 tablet 0906, Until Discontinu ed, Routine, Constipati on ondansetron 0 Yes 4mg 4 mg, Slow Univers (ZOFRAN 02-11 IV Push, ity of (PF)) 14:05: [place] injection 4 59 Starting Medi porfirio mg on [place] Branch 02/11/22 at 0905, Until Discontinu ed, Routine, Nausea and Vomiting (N/V) acetaminoph 0 Yes 650mg 650 mg, Un matt en 02-11 Oral, ity of (TYLENOL) 14:04: [place], [place] tablet 650 37 Starting Medic al [...] ity of ) 25 mg 09:10: daily. [place] tablet 54 [facility] Branch amLODIPine Yes 10mg Take 10 mg U nivers (NORVASC) 02-11 by mouth ity of 10 mg 09:10: daily. [place] tablet 54 [facility] Branch piperacilli 2021- No 3.375g 3.375 g, [...] of therapy: 72 hours iopamidol 2021- No [id number] 60mL 60 mL, Univers (ISOVUE 02-11 Intravenou [...] Branch 02/11/22 at 0015, JOE emtricitabi Yes [id number] Take one Univers ne-tenofovi 9-12 po daily ity of r alafen 00:00: [place] (DESCOVY) 00 Medical tablet Branch emtricitabi Yes [id number] Take one Univers ne-tenofovi 9-12 po daily ity of r alafen 00:00: [place] (DESCOVY) 00 Medical tablet Branch emtricitabi Yes [id number] Take one Univers ne-tenofovi 9-12 po daily ity of r alafen 00:00: [place] (DESCOVY) 00 Medical tablet Branch emtricitabi Yes [id number] Take one Univers ne-tenofovi 9-12 po daily ity of r alafen 00:00: [place] (DESCOVY) 00 Medical tablet Branch emtricitabi Yes [id number] Take one Univers ne-tenofovi 9-12 po daily ity of r alafen 00:00: [place] (DESCOVY) 00 Medical tablet Branch emtricitabi Yes [id number] Take one Univers ne-tenofovi 9-12 po daily ity of r alafen 00:00: [place] (DESCOVY) 00 Medical tablet Branch emtricitabi Yes [id number] Take one Univers ne-tenofovi 9-12 po daily ity of r alafen 00:00: [place] (DESCOVY) 00 Medical tablet Branch emtricita Yes [id number] Take one Univers ne-tenofovi 9-12 po daily ity of r alafen 00:00: [place] (DESCOVY) 00 Medical tablet Branch emtricita Yes [id number] Take one Univers ne-tenofovi 9-12 po daily ity of r alafen 00:00: [place] (DESCOVY) 00 Medical tablet Branch emtricita Yes [id number] Take one Univers ne-tenofovi 9-12 po daily ity of r alafen 00:00: [place] (DESCOVY) 00 Medical tablet Branch emtricita Yes [id number] Take one Univers ne-tenofovi 9-12 po daily ity of r alafen 00:00: [place] (DESCOVY) 00 Medical tablet Branch emtricita Yes [id number] Take one Univers ne-tenofovi 9-12 po daily ity of r alafen 00:00: [place] (DESCOVY) 00 Medical tablet [facility] [id number] Take one Univers ne-tenofovi 9-12 po daily ity of r alafen 00:00: [place] (DESCOVY) 00 Medical tablet Branch emtricita Yes [id number] Take one Univers ne-tenofovi 9-12 po daily ity of r alafen 00:00: [place] (DESCOVY) 00 Medical tablet Branch emtricita Yes [id number] Take one Univers ne-tenofovi 9-12 po daily ity of r alafen 00:00: [place] (DESCOVY) 00 Medical tablet Branch emtricita Yes [id number] Take one Univers ne-tenofovi 9-12 po daily ity of r alafen 00:00: [place] (DESCOVY) 00 Medical tablet Branch emtricita Yes [id number] Take one Univers ne-tenofovi 9-12 po daily ity of r alafen 00:00: [place] (DESCOVY) 00 Medical tablet Branch emtricitabi 0 2022- No [id number] Take one Univers ne-tenofovi 9-12 04-04 po daily ity of r alafen 00:00: 00:00 [place] (DESCOVY) 00 :00 Medical tablet Branch emtricitabi 2021-3- No [id number] Take one [place] 02-01 po daily ity of r alafen 00:00: 00:00 [place] (DESCOVY) 00 :00 Medical tablet Branch naproxen 2-0 Yes [id number] 500mg Take 1 U nivers (NAPROSYN) 7-24 tablet by ity of 500 mg 00:00: mouth in [place] tablet 00 the Medical morning Branch and 1 tablet in the evening. Take with meals. methocarbam 2021-0 Yes [id number] 500mg Take 1 Univers oL 500 mg 7-24 tablet by ity o f tablet 00:00: mouth 4 [place] ([facility]) Medical times [place] daily. naproxen 2021-0 Yes [id number] 500mg Take 1 U nivers (NAPROSYN) 7-24 tablet by ity of 500 mg 00:00: mouth in [place] tablet 00 the Medical morning Branch and 1 tablet in the evening. Take with meals. methocarbam 2021-0 Yes [id number] 500mg Take 1 Univers oL 500 mg 7-24 tablet by ity o f tablet 00:00: mouth 4 [place] ([facility]) Medical times Branch daily. naproxen 2021-0 Yes [id number] 500mg Take 1 U nivers (NAPROSYN) 7-24 tablet by ity of 500 mg 00:00: mouth in [place] tablet 00 the Medical morning Branch and 1 tablet in the evening. Take with meals. methocarbam 2021-0 Yes [id number] 500mg Take 1 Univers oL 500 mg 7-24 tablet by ity o f tablet 00:00: mouth 4 [place] ([facility]) Medical times Branch daily. naproxen 2021-0 2022- No [id number] 500mg Take 1 Univers (NAPROSYN) 7-24 10-14 tablet by ity of 500 mg 00:00: 00:00 mouth in [place] tablet 00 :00 the Medical morning Branch and 1 tablet in the evening. Take with meals. methocarbam 2021-0 2022- No [id number] 500mg Take 1 Univers oL 500 mg 7-24 10-14 tablet by ity of tablet 00:00: 00:00 mouth 4 [place] 00 :00 (four) Medical times Branch daily. naproxen 2021- No [id number] 500mg Take 1 Univers (NAPROSYN) 12-13 tablet by ity of 500 mg 00:00: 00:00 mouth in [place] tablet 00 :00 the Medical morning Branch and 1 tablet in the evening. Take with meals. methocarbam 2021- No [id number] 500mg Take 1 Univers oL 500 mg 12-13 tablet by ity of tablet 00:00: 00:00 mouth 4 [place] 00 :00 (four) Medical times Branch daily. esomeprazol 2021- No 40mg Take 40 mg Univers e (NEXIUM) 11-20 by mouth 2 it y of 40 mg 09:12: 00:00 (two) [place] capsule 03 :00 times Medical daily. Branch amiodarone 2021- No 100mg Take 100 U nivers 100 mg 11-20 mg by ity of tablet 09:11: 00:00 mouth [place] 57 :00 daily. Medical Branch apixaban 2021- No 5mg Take 5 mg Uni vers (ELIQUIS) 5 11-20 by mouth 2 i ty of mg tablet 09:11: 00:00 (two) [place] 35 :00 times Medical daily. Branch traZODONE No Take by [facility] ers (DESYREL) 11-20 mouth at ity o f 10 mg/mL 09:10: 00:00 bedtime. [place] oral 28 :00 Medical suspension Branch hydralAZINE Yes 25mg Take 25 mg Univers (APRESOLINE 11-20 by mouth ity of ) 25 mg 08:47: daily. [place] tablet 47 Medical Branch cephALEXin 2021- No [id number] 500mg Take 1 Univers (KEFLEX) 10-24 capsule by ity of 500 mg 00:00: 00:00 mouth 4 [place] capsule 00 :00 (four) Medical times Branch daily. acetaminoph 2021- No [id number] 1{tbl} Take 1 U nivers en-codeine 10-24 tablet by ity of (TYLENOL-CO 00:00: 00:00 mouth [place] DE[place] #3) 00 :00 every 4 Medical 300-30 mg (four) Branch tablet hours as needed for Pain (scale 7-10). Indication s: acute pain buPROPion 2021-0 Yes [id number] 150mg Take 1 U nivers XL 4-12 tablet by ity of (WELLBUTRIN 00:00: mouth [place] XL) 150 mg 00 daily. Medical 24 hr Branch tablet busPIRone 2021-0 Yes [id number] 30mg Take 1 Un matt 30 mg 4-12 tablet by ity of tablet 00:00: mouth 2 [place] 00 (two) Medical times Branch daily. SERTraline 2021-0 Yes [id number] 200mg Take 2 Univers 100 mg 4-12 tablets by ity of tablet 00:00: mouth [place] 00 daily. Medical Branch buPROPion 0 Yes [id number] 150mg Take 1 U nivers XL 4-12 tablet by ity of (WELLBUTRIN 00:00: mouth [place] XL) 150 mg 00 daily. Medical 24 hr Branch tablet busPIRone 2021-0 Yes [id number] 30mg Take 1 Un matt 30 mg 4-12 tablet by ity of tablet 00:00: mouth 2 [place] 00 (two) Medical times Branch daily. SERTraline 2021-0 Yes [id number] 200mg Take 2 Univers 100 mg 4-12 tablets by ity of tablet 00:00: mouth [place] 00 daily. Medical Branch buPROPion 2021-0 Yes [id number] 150mg Take 1 U nivers XL 4-12 tablet by ity of (WELLBUTRIN 00:00: mouth [place] XL) 150 mg 00 daily. Medical 24 hr Branch tablet busPIRone 2021-0 Yes [id number] 30mg Take 1 Un matt 30 mg 4-12 tablet by ity of tablet 00:00: mouth 2 [place] 00 (two) Medical times Branch daily. SERTraline 2021-0 Yes [id number] 200mg Take 2 Univers 100 mg 4-12 tablets by ity of tablet 00:00: mouth [place] 00 daily. Medical Branch buPROPion 2021-0 Yes [id number] 150mg Take 1 U nivers XL 4-12 tablet by ity of (WELLBUTRIN 00:00: mouth [place] XL) 150 mg 00 daily. Medical 24 hr Branch tablet busPIRone 2021-0 Yes [id number] 30mg Take 1 Un matt 30 mg 4-12 tablet by ity of tablet 00:00: mouth 2 [place] 00 (two) Medical times Branch daily. SERTraline 2021-0 Yes [id number] 200mg Take 2 Univers 100 mg 4-12 tablets by ity of tablet 00:00: mouth [place] 00 daily. Medical Branch buPROPion 2021-0 Yes [id number] 150mg Take 1 U nivers XL 4-12 tablet by ity of (WELLBUTRIN 00:00: mouth [place] XL) 150 mg 00 daily. Medical 24 hr Branch tablet busPIRone 2021-0 Yes [id number] 30mg Take 1 Un matt 30 mg 4-12 tablet by ity of tablet 00:00: mouth 2 [place] 00 (two) Medical times Branch daily. SERTraline 2021-0 Yes [id number] 200mg Take 2 Univers 100 mg 4-12 tablets by ity of tablet 00:00: mouth [place] 00 daily. Medical Branch buPROPion 2021-0 Yes [id number] 150mg Take 1 U nivers XL 4-12 tablet by ity of (WELLBUTRIN 00:00: mouth [place] XL) 150 mg 00 daily. Medical 24 hr Branch tablet busPIRone 2021-0 Yes [id number] 30mg Take 1 Un matt 30 mg 4-12 tablet by ity of tablet 00:00: mouth 2 [place] 00 (two) Medical times Branch daily. SERTraline 2021-0 Yes [id number] 200mg Take 2 Univers 100 mg 4-12 tablets by ity of tablet 00:00: mouth [place] 00 daily. Medical Branch buPROPion 2021-0 Yes [id number] 150mg Take 1 U nivers XL 4-12 tablet by ity of (WELLBUTRIN 00:00: mouth [place] XL) 150 mg 00 daily. Medical 24 hr Branch tablet busPIRone 2021-0 Yes [id number] 30mg Take 1 Un matt 30 mg 4-12 tablet by ity of tablet 00:00: mouth 2 [place] 00 (two) Medical times Branch daily. SERTraline 2021-0 Yes [id number] 200mg Take 2 Univers 100 mg 4-12 tablets by ity of tablet 00:00: mouth [place] 00 daily. Medical Branch buPROPion 2021-0 Yes [id number] 150mg Take 1 U nivers XL 4-12 tablet by ity of (WELLBUTRIN 00:00: mouth [place] XL) 150 mg 00 daily. Medical 24 hr Branch tablet busPIRone 2021-0 Yes [id number] 30mg Take 1 Un matt 30 mg 4-12 tablet by ity of tablet 00:00: mouth 2 [place] 00 (two) Medical times Branch daily. SERTraline 2021-0 Yes [id number] 200mg Take 2 Univers 100 mg 4-12 tablets by ity of tablet 00:00: mouth [place] 00 daily. Medical Branch buPROPion 2021-0 Yes [id number] 150mg Take 1 U nivers XL 4-12 tablet by ity of (WELLBUTRIN 00:00: mouth [place] XL) 150 mg 00 daily. Medical 24 hr Branch tablet busPIRone 2021-0 Yes [id number] 30mg Take 1 Un matt 30 mg 4-12 tablet by ity of tablet 00:00: mouth 2 00 (two) Medical times Branch daily. SERTraline 2021-0 Yes [id number] 200mg Take 2 Univers 100 mg 4-12 tablets by ity of tablet 00:00: mouth [place] 00 daily. Medical Branch buPROPion 2021-0 Yes [id number] 150mg Take 1 U nivers XL 4-12 tablet by ity of (WELLBUTRIN 00:00: mouth [place] XL) 150 mg 00 daily. Medical 24 hr Branch tablet busPIRone 2021-0 Yes [id number] 30mg Take 1 Un matt 30 mg 4-12 tablet by ity of tablet 00:00: mouth 2 [place] 00 (two) Medical times Branch daily. SERTraline 2021-0 Yes [id number] 200mg Take 2 Univers 100 mg 4-12 tablets by ity of tablet 00:00: mouth [place] 00 daily. Medical Branch buPROPion 2021-0 Yes [id number] 150mg Take 1 U nivers XL 4-12 tablet by ity of (WELLBUTRIN 00:00: mouth [place] XL) 150 mg 00 daily. Medical 24 hr Branch tablet busPIRone 2021-0 Yes [id number] 30mg Take 1 Un matt 30 mg 4-12 tablet by ity of tablet 00:00: mouth 2 [place] 00 (two) Medical times Branch daily. SERTraline 2022-0 Yes [id number] 200mg Take 2 Univers 100 mg 4-12 tablets by ity of tablet 00:00: mouth [place] 00 daily. Medical Branch buPROPion 0 Yes [id number] 150mg Take 1 U nivers XL 4-12 tablet by ity of (WELLBUTRIN 00:00: mouth [place] XL) 150 mg 00 daily. Medical 24 hr Branch tablet busPIRone 2021-0 Yes [id number] 30mg Take 1 Un matt 30 mg 4-12 tablet by ity of tablet 00:00: mouth 2 [place] 00 (two) Medical times Branch daily. SERTraline 0 Yes [id number] 200mg Take 2 Univers 100 mg 4-12 tablets by ity of tablet 00:00: mouth [place] 00 daily. Medical Branch buPROPion 0 Yes [id number] 150mg Take 1 U nivers XL 4-12 tablet by ity of (WELLBUTRIN 00:00: mouth [place] XL) 150 mg 00 daily. Medical 24 hr Branch tablet busPIRone 0 Yes [id number] 30mg Take 1 Un matt 30 mg 4-12 tablet by ity of tablet 00:00: mouth 2 [place] 00 (two) Medical times Branch daily. SERTraline 0 Yes [id number] 200mg Take 2 Univers 100 mg 4-12 tablets by ity of tablet 00:00: mouth [place] 00 daily. Medical Branch buPROPion 0 Yes [id number] 150mg Take 1 U nivers XL 4-12 tablet by ity of (WELLBUTRIN 00:00: mouth [place] XL) 150 mg 00 daily. Medical 24 hr Branch tablet busPIRone 2021-0 Yes [id number] 30mg Take 1 Un matt 30 mg 4-12 tablet by ity of tablet 00:00: mouth 2 [place] 00 (two) Medical times Branch daily. SERTraline 2021-0 Yes [id number] 200mg Take 2 Univers 100 mg 4-12 tablets by ity of tablet 00:00: mouth [place] 00 daily. Medical Branch buPROPion 0 Yes [id number] 150mg Take 1 U nivers XL 4-12 tablet by ity of (WELLBUTRIN 00:00: mouth [place] XL) 150 mg 00 daily. Medical 24 hr Branch tablet busPIRone 2022-0 Yes [id number] 30mg Take 1 Un matt 30 mg 4-12 tablet by ity of tablet 00:00: mouth 2 [place] 00 (two) Medical times Branch daily. SERTraline 0 Yes [id number] 200mg Take 2 Univers 100 mg 4-12 tablets by ity of tablet 00:00: mouth [place] 00 daily. Medical Branch buPROPion 0 Yes [id number] 150mg Take 1 U nivers XL 4-12 tablet by ity of (WELLBUTRIN 00:00: mouth [place] XL) 150 mg 00 daily. Medical 24 hr Branch tablet busPIRone Yes [id number] 30mg Take 1 Un matt 30 mg 4-12 tablet by ity of tablet 00:00: mouth 2 [place] 00 (two) Medical times Branch daily. SERTraline Yes [id number] 200mg Take 2 Univers 100 mg 4-12 tablets by ity of tablet 00:00: mouth [place] 00 daily. Medical Branch buPROPion Yes [id number] 150mg Take 1 U nivers XL 4-12 tablet by ity of (WELLBUTRIN 00:00: mouth [place] XL) 150 mg 00 daily. Medical 24 hr Branch tablet busPIRone Yes [id number] 30mg Take 1 Un matt 30 mg 4-12 tablet by ity of tablet 00:00: mouth 2 [place] 00 (two) Medical times Branch daily. SERTraline Yes [id number] 200mg Take 2 Univers 100 mg 4-12 tablets by ity of tablet 00:00: mouth [place] 00 daily. Medical Branch buPROPion 0 Yes [id number] 150mg Take 1 U nivers XL 4-12 tablet by ity of (WELLBUTRIN 00:00: mouth [place] XL) 150 mg 00 daily. Medical 24 hr Branch tablet busPIRone 0 Yes [id number] 30mg Take 1 Un matt 30 mg 4-12 tablet by ity of tablet 00:00: mouth 2 [place] 00 (two) Medical times Branch daily. SERTraline 0 Yes [id number] 200mg Take 2 Univers 100 mg 4-12 tablets by ity of tablet 00:00: mouth [place] 00 daily. Medical Branch buPROPion 0 Yes [id number] 150mg Take 1 U nivers XL 4-12 tablet by ity of (WELLBUTRIN 00:00: mouth [place] XL) 150 mg 00 daily. Medical 24 hr Branch tablet busPIRone 2021-0 Yes [id number] 30mg Take 1 Un matt 30 mg 4-12 tablet by ity of tablet 00:00: mouth 2 [place] 00 (two) Medical times Branch daily. SERTraline 2021-0 Yes [id number] 200mg Take 2 Univers 100 mg 4-12 tablets by ity of tablet 00:00: mouth [place] 00 daily. Medical Branch buPROPion 2021-0 Yes [id number] 150mg Take 1 U nivers XL 4-12 tablet by ity of (WELLBUTRIN 00:00: mouth [place] XL) 150 mg 00 daily. Medical 24 hr Branch tablet busPIRone 2021-0 Yes [id number] 30mg Take 1 Un matt 30 mg 4-12 tablet by ity of tablet 00:00: mouth 2 [place] 00 (two) Medical times Branch daily. SERTraline 2021-0 Yes [id number] 200mg Take 2 Univers 100 mg 4-12 tablets by ity of tablet 00:00: mouth [place] 00 daily. Medical Branch raltegravir 2021-0 Yes [id number] 400mg Take 1 Univers (ISENTRESS) 3-28 tablet by ity of 400 mg 00:00: mouth 2 [place] tablet 00 (two) Medical times Branch daily. raltegravir 2021-0 Yes [id number] 400mg Take 1 Univers (ISENTRESS) 3-28 tablet by ity of 400 mg 00:00: mouth 2 [place] tablet 00 (two) Medical times Branch daily. raltegravir 2021-0 Yes [id number] 400mg Take 1 Univers (ISENTRESS) 3-28 tablet by ity of 400 mg 00:00: mouth 2 [place] tablet 00 (two) Medical times Branch daily. raltegravir 2021-0 Yes [id number] 400mg Take 1 Univers (ISENTRESS) 3-28 tablet by ity of 400 mg 00:00: mouth 2 [place] tablet 00 (two) Medical times Branch daily. raltegravir 2021-0 Yes [id number] 400mg Take 1 Univers (ISENTRESS) 3-28 tablet by ity of 400 mg 00:00: mouth 2 [place] tablet 00 (two) Medical times Branch daily. raltegravir 2022-0 Yes [id number] 400mg Take 1 Univers (ISENTRESS) 3-28 tablet by ity of 400 mg 00:00: mouth 2 [place] tablet 00 (two) Medical times Branch daily. raltegravir 2-0 Yes [id number] 400mg Take 1 Univers (ISENTRESS) 3-28 tablet by ity of 400 mg 00:00: mouth 2 [place] tablet 00 (two) Medical times Branch daily. raltegravir 2021-0 Yes [id number] 400mg Take 1 Univers (ISENTRESS) 3-28 tablet by ity of 400 mg 00:00: mouth 2 [place] tablet 00 (two) Medical times Branch daily. raltegravir 2021-0 Yes [id number] 400mg Take 1 Univers (ISENTRESS) 3-28 tablet by ity of 400 mg 00:00: mouth 2 [place] tablet 00 (two) Medical times Branch daily. raltegravir 2021-0 Yes [id number] 400mg Take 1 Univers (ISENTRESS) 3-28 tablet by ity of 400 mg 00:00: mouth 2 [place] tablet 00 (two) Medical times Branch daily. raltegravir 2021-0 Yes [id number] 400mg Take 1 Univers (ISENTRESS) 3-28 tablet by ity of 400 mg 00:00: mouth 2 [place] tablet 00 (two) Medical times Branch daily. raltegravir 2021-0 Yes [id number] 400mg Take 1 Univers (ISENTRESS) 3-28 tablet by ity of 400 mg 00:00: mouth 2 [place] tablet 00 (two) Medical times Branch daily. raltegravir 2-0 Yes [id number] 400mg Take 1 Univers (ISENTRESS) 3-28 tablet by ity of 400 mg 00:00: mouth 2 [place] tablet 00 (two) Medical times Branch daily. raltegravir 2-0 Yes [id number] 400mg Take 1 Univers (ISENTRESS) 3-28 tablet by ity of 400 mg 00:00: mouth 2 [place] tablet 00 (two) Medical times Branch daily. raltegravir 2-0 Yes [id number] 400mg Take 1 Univers (ISENTRESS) 3-28 tablet by ity of 400 mg 00:00: mouth 2 [place] tablet 00 (two) Medical times Branch daily. raltegravir 2-0 Yes [id number] 400mg Take 1 Univers (ISENTRESS) 3-28 tablet by ity of 400 mg 00:00: mouth 2 [place] tablet 00 (two) Medical times Branch daily. raltegravir Yes [id number] 400mg Take 1 Univers (ISENTRESS) 3-28 tablet by ity of 400 mg 00:00: mouth 2 [place] tablet 00 (two) Medical times Branch daily. raltegravir Yes [id number] 400mg Take 1 Univers (ISENTRESS) 3-28 tablet by ity of 400 mg 00:00: mouth 2 [place] tablet 00 (two) Medical times Branch daily. raltegravir Yes [id number] 400mg Take 1 Univers (ISENTRESS) 3-28 tablet by ity of 400 mg 00:00: mouth 2 [place] tablet 00 (two) Medical times Branch daily. raltegravir Yes [id number] 400mg Take 1 [facility] (ISENTRESS) 3-28 tablet by ity of 400 mg 00:00: mouth 2 [place] tablet 00 (two) Medical times Branch daily. LORazepam 1 2021- No [id number] 1mg Take 1 [facility] mg tablet 3-10 [...] times a tablet day. emtricitabi 2021- No [id number] Take one [facility] ne-tenofovi 1-20 09-12 po daily ity of r alafen 00:00: 00:00 [place] (DESCOVY) 00 :00 Medical tablet Branch metoprolol Yes [id number] Take 1 [facility] tartrate 7-26 tablet [facility] (Lopressor) 00:00: (100 mg 100 MG 00 total) by tablet mouth 2 (two) times a day AND 0.5 tablets (50 mg total) every night. metoprolol 0 Yes [id number] Take 1 [facility] tartrate 7-26 tablet [facility] [...] area in groin) hydrALAZINE 2020-0 Yes 50mg Q.05163979 Take 50 mg [facility] (APRESOLINE 7-19 [id number] by mouth 3 st ) 50 MG [...] (affected area in groin) hydrALAZINE Yes 50mg Q.[id number] Take 50 mg [facility] (APRESOLINE 7-19 [id number] by mouth 3 st ) 50 MG [...] area in groin) hydrALAZINE 0 Yes 50mg Q.47798329 Take 50 mg [facility] (APRESOLINE 7-19 [id number] by mouth 3 st ) 50 MG [...] area in groin) hydrALAZINE 0 Yes 50mg Q.24348429 Take 50 mg [facility] (APRESOLINE 7-19 [id number] by mouth 3 st ) 50 MG [...] (affected area in groin) hydrALAZINE Yes 50mg Q.06253028 Take 50 mg [facility] (APRESOLINE 7-19 [id number] by mouth 3 st ) 50 MG [...] area in groin) hydrALAZINE 0 Yes 50mg Q.51718873 Take 50 mg [facility] (APRESOLINE 7-19 [id number] [address] mouth 3 st ) 50 MG [...] area in groin) hydrALAZINE 0 Yes 50mg Q.37100329 Take 50 mg [facility] (APRESOLINE 7-19 [id number] by mouth 3 st ) 50 MG [...] (affected area in groin) hydrALAZINE Yes 50mg Q.87977478 Take 50 mg [facility] (APRESOLINE 7-19 [id number] by mouth 3 st ) 50 MG [...] (affected area in groin) hydrALAZINE Yes 50mg Q.[id number] Take 50 mg [facility] (APRESOLINE 7-19 [id number] by mouth 3 st ) 50 MG [...] area in groin) hydrALAZINE 0 Yes 50mg Q.06748056 Take 50 mg [facility] (APRESOLINE 7-19 [id number] by mouth 3 st ) 50 MG [...] (affected area in groin) hydrALAZINE Yes 50mg Q.38618571 Take 50 mg [facility] (APRESOLINE 7-19 [id number] by mouth 3 st ) 50 MG [...] (affected area in groin) hydrALAZINE Yes 50mg Q.95174865 Take 50 mg [facility] (APRESOLINE 7-19 [id number] mouth 3 st ) 50 MG [...] (affected area in groin) hydrALAZINE Yes 50mg Q.02859932 Take 50 mg [facility] (APRESOLINE 7-19 [id number] [address] mouth 3 st ) 50 MG [...] area in groin) hydrALAZINE 0 Yes 50mg Q.66345704 Take 50 mg [facility] (APRESOLINE 7-19 [id number] mouth 3 st ) 50 MG [...] (affected area in groin) hydrALAZINE Yes 50mg Q.46576602 Take 50 mg [facility] (APRESOLINE 7-19 [address]32461164 by mouth 3 st ) 50 MG [...] area in groin) hydrALAZINE 0 Yes 50mg Q.52614616 Take 50 mg [facility] (APRESOLINE 7-19 [id number] mouth 3 st ) 50 MG [...] area in groin) hydrALAZINE 0 Yes 50mg Q.55481629 Take 50 mg [facility] (APRESOLINE 7-19 [id number] mouth 3 [address] ) 50 MG [...] (affected area in groin) hydrALAZINE Yes 50mg Q.[id number] Take 50 mg [facility] (APRESOLINE 7-[id number] mouth 3 st ) 50 MG [...] (affected area in groin) hydrALAZINE Yes 50mg Q.[id number] Take 50 mg [facility] (APRESOLINE 7-19 [id number] mouth 3 st ) 50 MG [...] area in groin) hydrALAZINE 0 Yes 50mg Q.97695791 Take 50 mg [facility] (APRESOLINE 7-19 1606615[address] mouth 3 st ) 50 MG [...] area in groin) hydrALAZINE 0 Yes 50mg Q.[id number] Take 50 mg [facility] (APRESOLINE 7-19 [id number] [address] mouth 3 st ) 50 MG [...] Yes Q.5D Apply 1 Meth jason (TEMOVATE) 7- applicatio st 0.05 % 10:51: [facility] ointment 25 topically l 2 (two) times a day. (affected area in groin) hydrALAZINE Yes 50mg Q.80803778 Take 50 mg [facility] (APRESOLINE 7-19 [id number] [address] mouth 3 st ) 50 MG [...] area in groin) hydrALAZINE 2020-0 Yes 50mg Q.40638265 Take 50 mg [facility] (APRESOLINE 7-19 [id number] mouth 3 st ) 50 MG [...] area in groin) hydrALAZINE 0 Yes 50mg Q.50699840 Take 50 mg [facility] (APRESOLINE 7-19 [id number] [address] mouth 3 st ) 50 MG [...] (affected area in groin) hydrALAZINE Yes 50mg Q.55940313 Take 50 mg [facility] (APRESOLINE 7-19 [id number] mouth 3 st ) 50 MG [...] area in groin) hydrALAZINE 0 Yes 50mg Q.85510846 Take 50 mg [facility] (APRESOLINE 7-19 [id number] by mouth 3 st ) 50 MG [...] area in groin) hydrALAZINE 2021-0 Yes 50mg Q.[id number] Take 50 mg [facility] (APRESOLINE 7-19 [address] mouth 3 [address] ) 50 MG [...] (affected area in groin) hydrALAZINE Yes 50mg Q.[id number] Take 50 mg [facility] (APRESOLINE 7-[address] mouth 3 [address] ) 50 MG [...] area in groin) hydrALAZINE 0 Yes 50mg Q.[id number] Take 50 mg [facility] (APRESOLINE 7-[id number] mouth 3 st ) 50 MG [...] area in groin) hydrALAZINE 0 Yes 50mg Q.[id number] Take 50 mg [facility] (APRESOLINE 7-[id number] mouth 3 [address] ) 50 MG [...] (affected area in groin) hydrALAZINE Yes 50mg Q.78292148 Take 50 mg [facility] (APRESOLINE 7-19 [address] mouth 3 [address] ) 50 MG [...] (affected area in groin) hydrALAZINE Yes 50mg Q.82129211 Take 50 mg [facility] (APRESOLINE 7-[id number] mouth 3 st ) 50 MG [...] area in groin) hydrALAZINE 0 Yes 50mg Q.25591727 Take 50 mg [facility] (APRESOLINE 7-19 [address] mouth 3 [address] ) 50 MG [...] (affected area in groin) hydrALAZINE Yes 50mg Q.73593070 Take 50 mg [facility] (APRESOLINE 7-19 [address] mouth 3 st ) 50 MG [...] (affected area in groin) hydrALAZINE Yes 50mg Q.14160216 Take 50 mg [facility] (APRESOLINE 7-[id number] mouth 3 st ) 50 MG [...] (affected area in groin) hydrALAZINE Yes 50mg Q.62765464 Take 50 mg [facility] (APRESOLINE 7-[id number] mouth 3 st ) 50 MG [...] area in groin) hydrALAZINE 2020-0 Yes 50mg Q.05324842 Take 50 mg [facility] (APRESOLINE 7-19 [id number] mouth 3 [address] ) 50 MG [...] (affected area in groin) hydrALAZINE Yes 50mg Q.52251035 Take 50 mg [facility] (APRESOLINE 7-[address] mouth 3 [address] ) 50 MG [...] (affected area in groin) hydrALAZINE Yes 50mg Q.[id number] Take 50 mg [facility] (APRESOLINE 7-[address] mouth 3 st ) 50 MG [...] area in groin) hydrALAZINE 0 Yes 50mg Q.20363941 Take 50 mg [facility] (APRESOLINE 7-19 [address] mouth 3 [address] ) 50 MG [...] (affected area in groin) hydrALAZINE Yes 50mg Q.51427438 Take 50 mg [facility] (APRESOLINE 7-[id number] mouth 3 st ) 50 MG [...] (affected area in groin) hydrALAZINE Yes 50mg Q.[id number] Take 50 mg [facility] (APRESOLINE 7-19 [address] mouth 3 st ) 50 MG [...] area in groin) hydrALAZINE 0 Yes 50mg Q.[id number] Take 50 mg [facility] (APRESOLINE 7-19 [address] mouth 3 [address] ) 50 MG [...] area in groin) hydrALAZINE 0 Yes 50mg Q.[id number] Take 50 mg [facility] (APRESOLINE 7-[address] mouth 3 [address] ) 50 MG [...] (affected area in groin) hydrALAZINE Yes 50mg Q.[id number] Take 50 mg [facility] (APRESOLINE 7-[id number] mouth 3 st ) 50 MG [...] area in groin) hydrALAZINE 0 Yes 50mg Q.[id number] Take 50 mg [facility] (APRESOLINE 7-[id number] mouth 3 [address] ) 50 MG [...] tablet 25 daily. l nystatin-tr 0 Yes [id number] Apply to [facility] iamcinolone 7-06 area(s) 3 ity of cream 00:00: (three) [place] 00 times Medical daily. Branch nystatin-tr 2020-0 Yes [id number] Apply to [facility] iamcinolone 7-06 area(s) 3 ity of cream 00:00: (three) [place] 00 times Medical daily. Branch nystatin-tr 202-0 Yes [id number] Apply to [facility] iamcinolone 7-06 area(s) 3 ity of cream 00:00: (three) [place] 00 times Medical daily. Branch nystatin-tr 2021-0 Yes [id number] Apply to [facility] iamcinolone 7-06 area(s) 3 ity of cream 00:00: (three) [place] 00 times Medical daily. Branch nystatin-tr 2021-0 Yes [id number] Apply to [facility] iamcinolone 7-06 area(s) 3 ity of cream 00:00: (three) [place] 00 times Medical daily. Branch nystatin-tr 2021-0 Yes [id number] Apply to [facility] iamcinolone 7-06 area(s) 3 ity of cream 00:00: (three) [place] 00 times Medical daily. Branch nystatin-tr 2021-0 Yes [id number] Apply to [facility] iamcinolone 7-06 area(s) 3 ity of cream 00:00: (three) [place] 00 times Medical daily. Branch nystatin-tr 2021-0 Yes [id number] Apply to [facility] iamcinolone 7-06 area(s) 3 ity of cream 00:00: (three) [place] 00 times Medical daily. Branch nystatin-tr 2021-0 Yes [id number] Apply to [facility] iamcinolone 7-06 area(s) 3 ity of cream 00:00: (three) [place] 00 times Medical daily. Branch nystatin-tr 2021-0 Yes [id number] Apply to [facility] iamcinolone 7-06 area(s) 3 ity of cream 00:00: (three) [place] 00 times Medical daily. Branch nystatin-tr 2021-0 Yes [id number] Apply to [facility] iamcinolone 7-06 area(s) 3 ity of cream 00:00: (three) [place] 00 times Medical daily. Branch nystatin-tr 2021-0 Yes [id number] Apply to [facility] iamcinolone 7-06 area(s) 3 ity of cream 00:00: (three) [place] 00 times Medical daily. Branch nystatin-tr 2021-0 Yes [id number] Apply to [facility] iamcinolone 7-06 area(s) 3 ity of cream 00:00: (three) [place] 00 times Medical daily. Branch nystatin-tr 2021-0 Yes [id number] Apply to [facility] iamcinolone 7-06 area(s) 3 ity of cream 00:00: (three) [place] 00 times Medical daily. Branch nystatin-tr 2021-0 Yes [id number] Apply to [facility] iamcinolone 7-06 area(s) 3 ity of cream 00:00: (three) [place] 00 times Medical daily. Branch nystatin-tr 2021-0 Yes [id number] Apply to [facility] iamcinolone 7-06 area(s) 3 ity of cream 00:00: (three) [place] 00 times Medical daily. Branch nystatin-tr 2021-0 Yes [id number] Apply to [facility] iamcinolone 7-06 area(s) 3 ity of cream 00:00: (three) [place] 00 times Medical daily. Branch nystatin-tr 2021-0 Yes [id number] Apply to [facility] iamcinolone 7-06 area(s) 3 ity of cream 00:00: (three) [place] 00 times Medical daily. Branch nystatin-tr 2021-0 Yes [id number] Apply to [facility] iamcinolone 7-06 area(s) 3 ity of cream 00:00: (three) [place] 00 times Medical daily. Branch nystatin-tr 0 Yes [id number] Apply to [facility] 11-25 area(s) 3 ity of cream 00:00: (three) [place] 00 times Medical daily. Branch budesonide- 2020-0 2021- No 1{puff} QD Inhale 1 [facility] formoteroL 6-25 06-[address] (SYMBICORT) 14:37: 00:00 morning. H [facility]spita 160-4.5 02 :00 l mcg/actuati on inhaler hydrALAZINE 0 Yes [id number] 50mg Q.[id number] Take 1 [facility] (Apresoline 6-11 [id number] tablet (50 Health ) 50 MG 00:00: 3D mg total) tablet 00 by mouth 3 (three) times a day. hydrALAZINE Yes [id number] 50mg Q.[id number] Take 1 [facility] (Apresoline 6-11 [id number] tablet (50 Health ) 50 MG 00:00: [...] % 00:00: ointment 00 nystatin 2020- No [id number] Q.25D Take 5 mL [facility] (MYCOSTATIN 10-06 [...] e 4-10 Tablet l 14:00: should not [place] 00 be chewed or crushed. (Same as: Protonix) Amiodarone No Notes: Memor ia 4-10 (Same as: l 14:00: Cordarone) [place] Amlodipine No Notes: Memor ia 4-10 (Same as: l 14:00: Norvasc) [place] emtricitabi No Notes: Caesar lisa ne 200 MG / 4-10 (Same as: l tenofovir 14:00: Descovy) Herm ariel alafenamide 00 Non-formul 25 MG Oral nancy Tablet [Descovy] Sertraline No Notes: Memor ia 4-10 (Same as: l 14:00: Zoloft) [place] pantoprazol No Notes: [place] lisa e 4-10 Tablet l 14:00: should not [place] 00 be chewed or crushed. (Same as: Protonix) Amiodarone No Notes: Memor ia 4-10 (Same as: l 14:00: Cordarone) [place] Amlodipine No Notes: Memor ia 4-10 (Same as: l 14:00: Norvasc) [place] emtricitabi No Notes: Caesar lisa ne 200 MG / 4-10 (Same as: l tenofovir 14:00: Descovy) Herm ariel alafenamide 00 Non-formul 25 MG Oral nancy Tablet [Descovy] Sertraline No Notes: Memor ia 4-10 (Same as: l 14:00: Zoloft) [place] pantoprazol No Notes: Caesar lisa e 4-10 [...] ia 4-10 (Same as: l 14:00: Zoloft) [place] 00 pantoprazol No Notes: [place] lisa e 4-10 Tablet l 14:00: should not [place] 00 be chewed or crushed. (Same as: Protonix) Amiodarone No Notes: Memor ia 4-10 (Same as: l 14:00: Cordarone) [place] 00 Amlodipine No Notes: Memor ia 4-10 (Same as: l 14:00: Norvasc) [place] emtricitabi No Notes: Caesar lisa ne 200 MG / 4-10 (Same as: l tenofovir 14:00: Descovy) Herm ariel alafenamide 00 Non-formul 25 MG Oral nancy Tablet [Descovy] Sertraline No Notes: Memor ia 4-10 (Same as: l 14:00: Zoloft) [place] 00 pantoprazol No Notes: [place] lisa e 4-10 Tablet l 14:00: should not [place] 00 be chewed or crushed. (Same as: [...] e 4-10 Tablet l 14:00: should not [place] 00 be chewed or crushed. (Same as: [...] 0.9% 4-10 (Same as: l 02:00: BD [place] Posiflush) Eliquis No Notes: Memoria 4-10 Same as: l 02:00: Eliquis [place] 00 Hydralazine No Notes: Caesar lisa Hydrochlori 4-10 (Same as: l de 50 MG 02:00: Apresoline Her mitchell Oral Tablet 00 ) May interfere w/enteral feedings Take With Food Sucralfate No Notes: May M emoria 4-10 interfere l 02:00: w/enteral [place] 00 feeds - Take 1 hr before [...] 0.9% 4-10 (Same as: l 02:00: BD [place] Posiflush) Eliquis No Notes: Memoria 4-10 Same as: l 02:00: Eliquis [place] Hydralazine No Notes: Caesar lisa Hydrochlori 4-10 [...] 02:00: Eliquis [place] 00 Hydralazine No Notes: Acesar lisa Hydrochlori 4-10 (Same as: l de 50 MG 02:00: Apresoline Her mitchell Oral Tablet 00 ) May interfere w/enteral feedings Take With Food Sucralfate No Notes: May M emoria 4-10 interfere l 02:00: w/enteral [place] 00 feeds - Take 1 hr before or 2 hr after antacids, dairy pdt, meals & minerals - On empty stomach. For patients unable to swallow tablet, dissolve in 10mL - 30mL of water or juice and stir before giving. (Same As: Carafate) Saline No Notes: Memoria Flush 0.9% 4-10 (Same as: l 02:00: BD [place] 00 Posiflush) Eliquis No Notes: Memoria 4-10 Same as: l 02:00: Eliquis [place] Hydralazine No Notes: Caesar lisa Hydrochlori 4-10 (Same as: l de 50 MG 02:00: Apresoline Her mitchell Oral Tablet 00 ) May interfere w/enteral feedings Take With Food Sucralfate No Notes: May M emoria 4-10 interfere l 02:00: w/enteral [place] 00 feeds - Take 1 hr before [...] M emoria 4-10 interfere l 02:00: w/enteral [place] 00 feeds - Take 1 hr before or 2 hr after antacids, dairy pdt, meals & minerals - On empty stomach. For patients unable to swallow tablet, dissolve in 10mL - 30mL of water or juice and stir before giving. (Same As: Carafate) Saline No Notes: [facility] Flush 0.9% 4-10 (Same as: l 02:00: BD [place] Posiflush) Eliquis No Notes: Memoria 4-10 Same as: l 02:00: Eliquis [place] 00 Hydralazine No Notes: Caesar lisa Hydrochlori 4-10 (Same as: l de 50 MG 02:00: Apresoline Her mitchell Oral Tablet 00 ) May interfere w/enteral feedings Take With Food acetaminoph No Notes: Do M emoria en-codeine 4-10 not exceed l #3 00:12: 4gm/day of [place] acetaminop hen. (Same as: Tylenol with Codeine # 3) acetaminoph No Notes: Do M emoria en-codeine 4-10 not exceed l #3 00:12: 4gm/day of [place] acetaminop hen. (Same as: Tylenol with Codeine # 3) acetaminoph No Notes: Do M emoria en-codeine 4-10 not exceed l #3 00:12: 4gm/day of [place] acetaminop hen. (Same as: Tylenol with Codeine # 3) acetaminoph No Notes: Do M emoria en-codeine 4-10 not exceed l #3 00:12: 4gm/day of [place] acetaminop hen. (Same as: Tylenol with Codeine # 3) acetaminoph No Notes: Do M emoria en-codeine 4-10 not exceed l #3 00:12: 4gm/day of [place] acetaminop hen. (Same as: Tylenol with Codeine # 3) acetaminoph No Notes: Do M emoria en-codeine 4-10 not exceed l #3 00:12: 4gm/day of [place] acetaminop hen. (Same as: Tylenol with Codeine # 3) acetaminoph No Notes: Do M emoria en-codeine 4-10 not exceed l #3 00:12: 4gm/day of [place] acetaminop hen. (Same as: Tylenol with Codeine [...] tartrate 4-09 tab, l 22:00: Route: PO, [place] Drug form: TAB, BID, Dosing Weight 97.273, [...] tartrate 4-09 tab, l 22:00: Route: PO, [place] Drug form: TAB, BID, Dosing Weight 97.273, [...] oria 4-09 tab, l 22:00: Route: PO, [place] Drug form: TAB, BID, Dosing Weight 97.273, kg, Start date: 08/29/20 17:00:00 CDT, Duration: 30 day, Stop date: 09/28/20 9:00:00 CDT metoprolol 1-0 No 100 mg, 1 Me moria tartrate 4-09 tab, l 22:00: Route: PO, [place] Drug form: TAB, BID, Dosing Weight 97.273, [...] tartrate 4-09 tab, l 22:00: Route: PO, [place] Drug form: TAB, BID, Dosing Weight 97.273, [...] oria -09 tab, l 22:00: Route: PO, [place] 00 Drug form: TAB, BID, Dosing Weight [...] tartrate 4-09 tab, l 22:00: Route: PO, [place] 00 Drug form: TAB, BID, Dosing Weight [...] Notes: Memoria 4-09 (Same l 17:07: as:MORPhin [place] 00 e Sulfate) Morphine No Notes: Memoria 4-09 (Same l 17:07: as:MORPhin [place] 00 e Sulfate) Morphine No Notes: Memoria 4-09 (Same l 17:07: as:MORPhin [place] 00 e Sulfate) Morphine No Notes: Memoria 4- (Same l 17:07: as:MORPhin [place] 00 e Sulfate) Morphine No Notes: Memoria [...] tab, PO, l oral 15:27: Daily, # [place] enteric 00 30 tab, 0 coated Refill(s), tablet Pharmacy: [facility], 162.56, cm, 08/29/20 5:30:00 CDT, Height, 97.273, kg, 08/29/20 5:30:00 CDT, Weight pantoprazol 2020-0 Yes 40 mg = 1 M emoria e 40 mg 4-09 tab, PO, l oral 15:27: Daily, # [place] enteric 00 30 tab, 0 coated Refill(s), tablet Pharmacy: [facility] 149, 162.56, cm, 08/29/20 5:30:00 CDT, Height, 97.273, kg, 08/29/20 5:30:00 CDT, Weight pantoprazol 2020-0 Yes 40 mg = 1 M emoria e 40 mg 4-09 tab, PO, l oral 15:27: Daily, # [place] enteric 00 30 tab, 0 coated Refill(s), tablet Pharmacy: [facility] 149, 162.56, cm, 08/29/20 5:30:00 CDT, Height, 97.273, kg, 08/29/20 5:30:00 CDT, Weight pantoprazol 2021-0 Yes 40 mg = 1 M emoria e 40 mg 4-09 tab, PO, l oral 15:27: Daily, # [place] enteric 00 30 tab, 0 coated Refill(s), tablet Pharmacy: [facility] 149, 162.56, cm, 08/29/20 5:30:00 CDT, Height, 97.273, kg, 08/29/20 5:30:00 CDT, Weight pantoprazol 1-0 Yes 40 mg = 1 M emoria e 40 mg 4-09 tab, PO, l oral 15:27: Daily, # [place] enteric 00 30 tab, 0 coated Refill(s), tablet Pharmacy: [facility] 149, 162.56, cm, 08/29/20 5:30:00 CDT, Height, 97.273, kg, 08/29/20 5:30:00 CDT, Weight pantoprazol 1-0 Yes 40 mg = 1 M emoria e 40 mg 4-09 tab, PO, l oral 15:27: Daily, # [place] enteric 00 30 tab, 0 coated Refill(s), [...] Skylar nn 00 tab, 0 Refill(s), Pharmacy: [place] [id number], 162.56, cm, 08/29/20 5:30:00 CDT, Height, 97.273, kg, 08/29/20 5:30:00 CDT, Weight pantoprazol 2020-0 No 40 mg = 1 M emoria e 40 mg 4-09 tab, PO, l oral 15:26: Daily, # [place] enteric 00 30 tab, 0 coated Refill(s) [...] tab, PO, l oral 15:26: Daily, # [place] enteric 00 30 tab, 0 coated Refill(s) [...] tab, PO, l oral 15:26: Daily, # [place] enteric 00 30 tab, 0 coated Refill(s) [...] tab, PO, l oral 15:26: Daily, # [place] enteric 00 30 tab, 0 coated Refill(s) [...] tab, PO, l oral 15:26: Daily, # [place] enteric 00 30 tab, 0 coated Refill(s) tablet sucralfate Yes 1 gm = 1 Mem oria 1 g oral 4-09 tab, PO, l tablet 15:26: Q12H, # 28 Skylar nn 00 tab, 0 Refill(s), Pharmacy: [facility] 149, 162.56, cm, 08/29/20 5:30:00 CDT, Height, 97.273, kg, 08/29/20 5:30:00 CDT, Weight Saline No Notes: Memoria Flush 0.9% 08-29 (Same as: l 15:25: BD [place] 00 Posiflush) Lorazepam No Notes: Memori a [...] 0.9% 4-09 (Same as: l 15:25: BD [place] 00 Posiflush) Lorazepam No Notes: Memori a 4-09 (Same as: l 15:25: Ativan) Saline No Notes: Memoria Flush 0.9% 4-09 (Same as: l 15:25: BD [place] 00 Posiflush) Lorazepam No Notes: Memori a 4-09 (Same as: l 15:25: Ativan) Saline No Notes: Memoria Flush 0.9% 4-09 (Same as: l 15:25: BD [place] 00 Posiflush) Lorazepam No Notes: Memori a 4-09 (Same as: l 15:25: Ativan) Isuprel HCl No Route: IV, Memoria (ANES) 0.2 4-09 Drug form: l mg + 15:00: INJ, [place] 00 Dosing Weight 97.3, kg, Start date: 08/29/20 10:00:00 CDT, Stop date: 08/29/20 11:00:00 CDT Isuprel HCl 2021-0 No Route: IV, Memoria (ANES) 0.2 08-29 Drug form: l mg + 15:00: INJ, [place] Dosing Weight 97.3, kg, Start date: 08/29/20 [...] 08-29 Drug form: l 14:49: INJ, ONCE, [place] 00 Stop date: 08/29/20 9:49:00 CDT heparin [...] 9:18:00 CDT heparin 2021-0 No Route: IV, Acesar lisa (ANES) 08-29 Drug form: l 14:18: INJ, ONCE, Stop date: 08/29/20 9:18:00 CDT heparin 202-0 No Route: IV, Caesar lisa (ANES) 08-29 Drug form: l 14:18: INJ, ONCE, [place] 00 Stop date: 08/29/20 9:18:00 CDT heparin [...] Memori a 08-29 Route: l 14:01: IVP, [place] 00 Q2MIN, Dosing Weight 97.273, kg, PRN [...] Memori a 08-29 Route: l 14:01: IVP, [place] 00 Q2MIN, Dosing Weight 97.273, kg, PRN [...] 08-29 Route: PO, l 14:01: Drug form: [place] 00 TAB, ONCE, Dosing Weight 97.273, kg, [...] oria ne 08-29 Route: l 14:01: IVP, [place] 00 Q5Min, Dosing Weight 97.273, kg, PRN Pain Score 7-10, Start date: 08/29/20 9:01:00 CDT, Duration: 4 doses or times, Stop date: Limited # of times Flumazenil 1-0 No 0.2 mg, Caesar lisa 08-29 Route: l 14:01: IVP, PRN, [place] 00 Dosing Weight 97.273, kg, PRN Benzodiaze [...] oria ne 08-29 Route: l 14:01: IVP, [place] 00 Q5Min, Dosing Weight 97.273, kg, PRN Pain Score 7-10, Start date: 08/29/20 9:01:00 CDT, Duration: 4 doses or times, Stop date: Limited # of times Labetalol 1-0 No 10 mg, Memori a 08-29 Route: l 14:01: IVP, [place] 00 Q5Min, Dosing Weight 97.273, kg, PRN [...] oria ne 08-29 Route: l 14:01: IVP, [place] 00 Q5Min, Dosing Weight 97.273, kg, PRN [...] Memori a 08-29 Route: l 14:01: IVP, [place] 00 Q2MIN, Dosing Weight 97.273, kg, PRN Narcotic Reversal, Start date: 08/29/20 9:01:00 CDT, Duration: 8 doses or times, Stop date: Limited # of times Flumazenil 1-0 No 0.2 mg, Caesar lisa 08-29 Route: l 14:01: IVP, PRN, [place] Dosing Weight 97.273, kg, PRN Benzodiaze pine Reversal, Initial dose, Start date: 08/29/20 9:01:00 CDT, Duration: 30 day, Stop date: 09/28/20 9:00:00 CDT Ondansetron 2021-0 No 4 mg, Memor ia 08-29 Route: l 14:01: IVP, ONCE, [place] Dosing Weight 97.273, kg, PRN Nausea & [...] ia 08-29 Route: l 14:01: IVP, ONCE, [place] Dosing Weight 97.273, kg, PRN Nausea & Vomiting, Start date: 08/29/20 9:01:00 CDT Labetalol 2021-0 No 10 mg, Memori a 08-29 Route: l 14:01: IVP, [place] 00 Q5Min, Dosing Weight 97.273, kg, PRN [...] Memori a 08-29 Route: l 14:01: IVP, [place] 00 Q2MIN, Dosing Weight 97.273, kg, PRN [...] Memori a 08-29 Route: l 14:01: IVP, [place] 00 Q5Min, Dosing Weight 97.273, kg, PRN Elevated BP, Start date: 08/29/20 9:01:00 CDT, Duration: 5 doses or times, Stop date: Limited # of times Acetaminoph 1-0 No 1,000 mg, M emoria en 08-29 Route: PO, l 14:01: Drug form: [place] 00 TAB, ONCE, Dosing Weight 97.273, kg, [...] Memori a 08-29 Route: l 14:01: IVP, [place] 00 Q2MIN, Dosing Weight 97.273, kg, PRN Narcotic Reversal, Start date: 08/29/20 9:01:00 CDT, Duration: 8 doses or times, Stop date: Limited # of times Ondansetron 2020-0 No 4 mg, Memor ia 08-29 Route: l 14:01: IVP, ONCE, [place] Dosing Weight 97.273, kg, PRN Nausea & Vomiting, Start date: 08/29/20 9:01:00 CDT lidocaine 2020-0 No Route: IV, Me moria (ANES) 08-29 Drug form: l 13:52: INJ, ONCE, [place] 00 Stop date: 08/29/20 8:52:00 CDT rocuronium [...] 08-29 Drug form: l 13:42: INJ, ONCE, [place] 00 Stop date: 08/29/20 8:42:00 CDT fentaNYL 2020-0 No Route: IV, Mem oria (ANES) 08-29 Drug form: l 13:42: INJ, ONCE, [place] Stop date: 08/29/20 8:42:00 CDT fentaNYL 2020-0 [...] Drug form: l 10 13:15: INJ, Start [place] microgram date: 08/29/20 8:15:00 CDT, Stop date: 08/29/20 9:15:00 CDT norepinephr 2020-0 No Route: IV, Memoria ine (ANES) 08-29 Drug form: l 10 13:15: INJ, Start [place] microgram date: 08/29/20 8:15:00 CDT, Stop date: 08/29/20 9:15:00 CDT norepinephr 2020-0 No Route: IV, Memoria ine (ANES) 4- Drug form: l 10 13:15: INJ, Start [place] microgram 00 date: 08/29/20 8:15:00 CDT, Stop [...] 4-09 Total l 0.9% IV 12:30: Volume: [place] (ANES) 1000 00 1,000, mL Start date: 08/29/20 7:30:00 CDT, Stop date: 08/29/20 8:30:00 CDT Sodium 2020-0 No Route: IV, Memor ia Chloride 4-09 Total l 0.9% IV 12:30: Volume: [place] (ANES) 1000 00 1,000, mL Start date: 08/29/20 7:30:00 CDT, Stop date: 08/29/20 8:30:00 CDT Sodium 202-0 No Route: IV, Memor ia Chloride 4-09 Total l 0.9% IV 12:30: Volume: [place] (ANES) 1000 00 1,000, mL Start date: 08/29/20 7:30:00 CDT, Stop date: 08/29/20 8:30:00 CDT Sodium 2020-0 No Route: IV, Memor ia Chloride 4-09 Total l 0.9% IV 12:30: Volume: [place] (ANES) 1000 00 1,000, mL Start date: 08/29/20 7:30:00 CDT, Stop date: 08/29/20 8:30:00 CDT Sodium 2021-0 No Route: IV, [facility] Chloride 4-09 Total l 0.9% IV 12:30: Volume: [place] (ANES) 1000 00 1,000, mL Start date: 08/29/20 7:30:00 CDT, Stop date: 08/29/20 8:30:00 CDT Sodium 1-0 No Route: IV, [facility] Chloride 4-09 Total l 0.9% IV 12:30: Volume: [place] (ANES) 1000 00 1,000, mL Start date: 08/29/20 7:30:00 CDT, Stop date: 08/29/20 8:30:00 CDT Sodium 1-0 No Route: IV, [facility] Chloride 4-09 Total l 0.9% IV 12:30: Volume: [place] (ANES) 1000 00 1,000, mL Start date: [...] PO, l Hydrochlori 11:42: Q24H, # 30 [place] de 150 MG 00 tab, 0 Extended [...] 4-09 Q12H, tab, l Tablet 11:41: 0 [place] [Eliquis] 00 Refill(s), For Atrial Fibrilatio n apixaban Yes 5 mg, PO, Me moria MG Oral 08-29 Q12H, tab, l Tablet 11:41: 0 [place] [Eliquis] 00 Refill(s), For Atrial Fibrilatio n apixaban 5 2020-0 Yes 5 mg, PO, Me moria MG Oral 08-29 Q12H, tab, l Tablet 11:41: 0 [place] [Eliquis] 00 Refill(s), For Atrial Fibrilatio n apixaban 5 2020-0 Yes 5 mg, PO, Me moria MG Oral 08-29 Q12H, tab, l Tablet 11:41: 0 [place] [Eliquis] 00 Refill(s), For Atrial Fibrilatio n apixaban 5 2020-0 Yes 5 mg, PO, Me moria MG Oral 08-29 Q12H, tab, l Tablet 11:41: 0 [place] [Eliquis] 00 Refill(s), For Atrial Fibrilatio n apixaban 5 2020-0 Yes 5 mg, PO, Me moria MG Oral 08-29 Q12H, tab, l Tablet 11:41: 0 [place] [Eliquis] 00 Refill(s), For Atrial Fibrilatio n apixaban 5 2020-0 Yes 5 mg, PO, Me moria MG Oral 08-29 Q12H, tab, l Tablet 11:41: 0 [place] [Eliquis] 00 Refill(s), For Atrial Fibrilatio n AMIODarone 2020-0 Yes 200 mg = 1 M emoria 200 mg oral 08-29 tab, PO, l tablet 11:38: Daily, # [place] 00 90 tab, 3 Refill(s) AMIODarone 2020-0 Yes 200 mg = 1 M em[facility] 200 mg oral -09 tab, PO, l tablet 11:38: Daily, # [place] 00 90 tab, 3 Refill(s) AMIODarone 2020-0 Yes 200 mg = 1 M em[facility] 200 mg oral -09 tab, PO, l tablet 11:38: Daily, # [place] 00 90 tab, 3 Refill(s) AMIODarone 2020-0 Yes 200 mg = 1 M em[facility] 200 mg oral -09 tab, PO, l tablet 11:38: Daily, # [place] 00 90 tab, 3 Refill(s) AMIODarone 2020-0 Yes 200 mg = 1 M [facility] 200 mg oral 4-09 tab, PO, l tablet 11:38: Daily, # [place] 00 90 tab, 3 Refill(s) AMIODarone 2020-0 Yes 200 mg = 1 M [facility] 200 mg oral 4-09 tab, PO, l tablet 11:38: Daily, # [place] 00 90 tab, 3 Refill(s) AMIODarone 2020-0 Yes 200 mg = 1 M [facility] 200 mg oral 4-09 tab, PO, l tablet 11:38: Daily, # [place] 00 90 tab, 3 Refill(s) normal 0 [...] Eliquis 5 2021-0 Yes [facility] mg tablet 3-27 st 00:00: [...] Eliquis 5 2021-0 Yes [facility] mg tablet 3-27 st 00:00: [...] Completed [facility]ive [facility] of PFIZER VACCINE 00:00:00 [facility] SARS-COV-2 COVID-19 2020-07-23 Completed [facility] of PFIZER VACCINE 00:00:00 [facility] SARS-COV-2 COVID-19 2020-07-23 Completed [facility] of PFIZER VACCINE 00:00:00 [facility] SARS-COV-2 COVID-19 2020-07-23 Completed [facility]ive rs[facility] of PFIZER VACCINE 00:00:00 [facility] SARS-COV-2 COVID-19 2020-07-23 Completed [facility]ive [facility] of PFIZER VACCINE 00:00:00 [facility] SARS-COV-2 COVID-19 2020-07-23 Completed [facility] of PFIZER VACCINE 00:00:00 [facility] SARS-COV-2 COVID-19 2020-07-23 Completed [facility] of PFIZER VACCINE 00:00:00 [facility] SARS-COV-2 COVID-19 2020-07-23 Completed [facility] of PFIZER VACCINE 00:00:00 [facility] SARS-COV-2 COVID-19 2020-07-23 Completed [facility] of PFIZER VACCINE 00:00:00 [facility] SARS-COV-2 COVID-19 2020-07-23 Completed [facility] of PFIZER VACCINE 00:00:00 [facility] SARS-COV-2 COVID-19 2020-07-23 Completed [facility] of PFIZER VACCINE 00:00:00 [facility] SARS-COV-2 COVID-19 2020-07-23 Completed [facility] of PFIZER VACCINE 00:00:00 [facility] SARS-COV-2 COVID-19 2020-07-23 Completed [facility]ive rs[facility] of PFIZER VACCINE 00:00:00 [facility] SARS-COV-2 COVID-19 2020-07-23 Completed [facility] rs[facility] of PFIZER VACCINE 00:00:00 [facility] SARS-COV-2 COVID-19 2020-07-23 Completed [facility] rs[facility] of PFIZER VACCINE 00:00:00 [facility] SARS-COV-2 COVID-19 2020-07-23 Completed [facility]ive rs[facility] of PFIZER VACCINE 00:00:00 [facility] PFIZER COVID-19 2020-07-23 Completed [facility] MRNA VACCINATION 00:00:00 [facility] PFIZER COVID-19 2020-07-23 Completed [facility] MRNA VACCINATION 00:00:00 [facility] PFIZER COVID-19 2020-07-23 Completed [facility] MRNA VACCINATION 00:00:00 [facility] PFIZER COVID-19 2020-07-23 Completed [facility] MRNA VACCINATION 00:00:00 [facility] PFIZER COVID-19 2020-07-23 Completed [facility] MRNA VACCINATION 00:00:00 [facility] PFIZER COVID-19 2020-07-23 Completed [facility] MRNA VACCINATION 00:00:00 [facility] PFIZER COVID-19 2020-07-23 Completed [facility] MRNA VACCINATION 00:00:00 [facility] PFIZER COVID-19 2020-07-23 Completed [facility] MRNA VACCINATION 00:00:00 [facility] PFIZER COVID-19 2020-07-23 Completed [facility] MRNA VACCINATION 00:00:00 [facility] PFIZER COVID-19 2020-07-23 Completed [facility] MRNA VACCINATION 00:00:00 [facility] PFIZER COVID-19 2020-07-23 Completed [facility] MRNA VACCINATION 00:00:00 [facility] PFIZER COVID-19 2020-07-23 Completed [facility] MRNA VACCINATION 00:00:00 [facility] PFIZER COVID-19 2020-07-23 Completed [facility] MRNA VACCINATION 00:00:00 [facility] PFIZER COVID-19 2020-07-23 Completed [facility] MRNA VACCINATION 00:00:00 [facility] PFIZER COVID-19 2020-07-23 Completed [facility] MRNA VACCINATION 00:00:00 [facility] PFIZER COVID-19 2020-07-23 Completed [facility] MRNA VACCINATION 00:00:00 [facility] PFIZER COVID-19 2020-07-23 Completed [facility] MRNA VACCINATION 00:00:00 [facility] PFIZER COVID-19 2020-07-23 Completed [facility] MRNA VACCINATION 00:00:00 [facility] PFIZER COVID-19 2020-07-23 Completed [facility] MRNA VACCINATION 00:00:00 [facility] PFIZER COVID-19 2020-07-23 Completed [facility] MRNA VACCINATION 00:00:00 [facility] PFIZER COVID-19 2020-07-23 Completed [facility] MRNA VACCINATION 00:00:00 [facility] PFIZER COVID-19 2020-07-23 Completed [facility] MRNA VACCINATION 00:00:00 [facility] PFIZER COVID-19 2020-07-23 Completed [facility] MRNA VACCINATION 00:00:00 [facility] PFIZER COVID-19 2020-07-23 Completed [facility] MRNA VACCINATION 00:00:00 [facility] PFIZER COVID-19 2020-07-23 Completed [facility] MRNA VACCINATION 00:00:00 [facility] PEG COVID-19 2020-07-23 Completed [facility] MRNA VACCINATION 00:00:00 [facility] PEG COVID-19 2020-07-23 Completed [facility] MRNA VACCINATION 00:00:00 [facility] PFIZER COVID-19 2020-07-23 Completed [facility] MRNA VACCINATION 00:00:00 [facility] PEG COVID-19 2020-07-23 Completed [facility] MRNA VACCINATION 00:00:00 [facility] PFIZER COVID-19 2020-07-23 Completed [facility] MRNA VACCINATION 00:00:00 [facility] PEG COVID-19 2020-07-23 Completed [facility] MRNA VACCINATION 00:00:00 [facility] PFIZER COVID-19 2020-07-23 Completed [facility] MRNA VACCINATION 00:00:00 [facility] PFIZER COVID-19 2020-07-23 Completed [facility] MRNA VACCINATION 00:00:00 [facility] PFIZER COVID-19 2020-07-23 Completed [facility] MRNA VACCINATION 00:00:00 [facility] PFIZER COVID-19 2020-07-23 Completed [facility] MRNA VACCINATION 00:00:00 [facility] PFIZER COVID-19 2020-07-23 Completed [facility] MRNA VACCINATION 00:00:00 [facility] PFIZER COVID-19 2020-07-23 Completed [facility] MRNA VACCINATION 00:00:00 [facility] PFIZER COVID-19 2020-07-23 Completed [facility] MRNA VACCINATION 00:00:00 [facility] PFIZER COVID-19 2020-07-23 Completed [facility] MRNA VACCINATION 00:00:00 [facility] PFIZER COVID-19 2020-07-23 Completed [facility] VACC[facility]ATION 00:00:00 [facility] PFIZ[facility] COVID-19 2020-07-23 Completed [facility] MRNA VACCINATION 00:00:00 [facility] PFIZER COVID-19 2020-07-23 Completed [facility] M[facility] VACCINATION 00:00:00 [facility] PFIZER COVID-19 2020-07-23 Completed [facility] MRNA VACCINATION 00:00:00 [facility] PFIZER COVID-19 2020-07-23 Completed [facility] MRNA VACCINATION 00:00:00 [facility] PFIZER COVID-19 2020-07-23 Completed [facility] MRNA VACCINATION 00:00:00 [facility] PFIZER COVID-19 2020-07-23 Completed [facility] MRNA VACCINATION 00:00:00 [facility] SARS-COV-2 COVID-19 2020-07-02 Completed [facility] of PFIZER VACCINE 00:00:00 [facility] SARS-COV-2 COVID-19 2020-07-02 Completed [facility] of PFIZER VACCINE 00:00:00 [facility] SARS-COV-2 COVID-19 2020-07-02 Completed [facility] of PFIZER VACCINE 00:00:00 [facility] SARS-COV-2 COVID-19 2020-07-02 Completed [facility] of PFIZER VACCINE 00:00:00 [facility] SARS-COV-2 COVID-19 2020-07-02 Completed [facility] of PFIZER VACCINE 00:00:00 [facility] SARS-COV-2 COVID-19 2020-07-02 Completed [facility] of PFIZER VACCINE 00:00:00 [facility] SARS-COV-2 COVID-19 2020-07-02 Completed [facility] of PFIZER VACCINE 00:00:00 [facility] SARS-COV-2 COVID-19 2020-07-02 Completed [facility] of PFIZER VACCINE 00:00:00 [facility] SARS-COV-2 COVID-19 2020-07-02 Completed [facility] of PFIZER VACCINE 00:00:00 [facility] SARS-COV-2 COVID-19 2020-07-02 Completed [facility] of PFIZER VACCINE 00:00:00 [facility] SARS-COV-2 COVID-19 2020-07-02 Completed [facility] of PFIZER VACCINE 00:00:00 [facility] SARS-COV-2 COVID-19 2020-07-02 Completed [facility] of PFIZER VACCINE 00:00:00 [facility] SARS-COV-2 COVID-19 2020-07-02 Completed [facility] of PFIZER VACCINE 00:00:00 [facility] SARS-COV-2 COVID-19 2020-07-02 Completed [facility] of PFIZER VACCINE 00:00:00 [facility] SARS-COV-2 COVID-19 2020-07-02 Completed [facility] of PFIZER VACCINE 00:00:00 [facility] SARS-COV-2 COVID-19 2020-07-02 Completed [facility] of PFIZER VACCINE 00:00:00 [facility] PFIZER COVID-19 2020-07-02 Completed [facility] MRNA VACCINATION 00:00:00 [facility] PFIZER COVID-19 2020-07-02 Completed [facility] MRNA VACCINATION 00:00:00 [facility] PFIZER COVID-19 2020-07-02 Completed [facility] MRNA VACCINATION 00:00:00 [facility] PFIZER COVID-19 2020-07-02 Completed [facility] MRNA VACCINATION 00:00:00 [facility] PFIZER COVID-19 2020-07-02 Completed [facility] MRNA VACCINATION 00:00:00 [facility] PFIZER COVID-19 2020-07-02 Completed [facility] MRNA VACCINATION 00:00:00 [facility] PFIZER COVID-19 2020-07-02 Completed [facility] MRNA VACCINATION 00:00:00 [facility] PFIZER COVID-19 2020-07-02 Completed [facility] MRNA VACCINATION 00:00:00 [facility] PFIZER COVID-19 2020-07-02 Completed [facility] MRNA VACCINATION 00:00:00 [facility] PFIZER COVID-19 2020-07-02 Completed [facility] MRNA VACCINATION 00:00:00 [facility] PFIZER COVID-19 2020-07-02 Completed [facility] M[facility] VACCINATION 00:00:00 [facility] PFIZER COVID-19 2020-07-02 Completed [facility] MRNA VACCINATION 00:00:00 [facility] PFIZER COVID-19 2020-07-02 Completed [facility] MRNA VACCINATION 00:00:00 [facility] PFIZER COVID-19 2020-07-02 Completed [facility] MRNA VACCINATION 00:00:00 [facility] PFIZER COVID-19 2020-07-02 Completed [facility] MRNA VACCINATION 00:00:00 [facility] PFIZER COVID-19 2020-07-02 Completed [facility] MRNA VACCINATION 00:00:00 [facility] PFIZER COVID-19 2020-07-02 Completed [facility] MRNA VACCINATION 00:00:00 [facility] PFIZER COVID-19 2020-07-02 Completed [facility] MRNA VACCINATION 00:00:00 [facility] PFIZER COVID-19 2020-07-02 Completed [facility] MRNA VACCINATION 00:00:00 [facility] PFIZER COVID-19 2020-07-02 Completed [facility] MRNA VACCINATION 00:00:00 [facility] PFIZER COVID-19 2020-07-02 Completed [facility] MRNA VACCINATION 00:00:00 [facility] PFIZER COVID-19 2020-07-02 Completed [facility] MRNA VACCINATION 00:00:00 [facility] PFIZER COVID-19 2020-07-02 Completed [facility] MRNA VACCINATION 00:00:00 [facility] PFIZER COVID-19 2020-07-02 Completed [facility] MRNA VACCINATION 00:00:00 [facility] PFIZER COVID-19 2020-07-02 Completed [facility] MRNA VACCINATION 00:00:00 [facility] PFIZER COVID-19 2020-07-02 Completed [facility] MRNA VACCINATION 00:00:00 [facility] PFIZER COVID-19 2020-07-02 Completed [facility] MRNA VACCINATION 00:00:00 [facility] PFIZER COVID-19 2020-07-02 Completed [facility] MRNA VACCINATION 00:00:00 [facility] PFIZER COVID-19 2020-07-02 Completed [facility] MRNA VACCINATION 00:00:00 [facility] PFIZER COVID-19 2020-07-02 Completed [facility] MRNA VACCINATION 00:00:00 [facility] PFIZER COVID-19 2020-07-02 Completed [facility] MRNA VACCINATION 00:00:00 [facility] PFIZER COVID-19 2020-07-02 Completed [facility] MRNA VACCINATION 00:00:00 [facility] PFIZER COVID-19 2020-07-02 Completed [facility] MRNA VACCINATION 00:00:00 [facility] PFIZER COVID-19 2020-07-02 Completed [facility] MRNA VACCINATION 00:00:00 [facility] PFIZER COVID-19 2020-07-02 Completed [facility] MRNA VACCINATION 00:00:00 [facility] PFIZER COVID-19 2020-07-02 Completed [facility] MRNA VACCINATION 00:00:00 [facility] PFIZER COVID-19 2020-07-02 Completed [facility] MRNA VACCINATION 00:00:00 [facility] PFIZER COVID-19 2020-07-02 Completed [facility] MRNA VACCINATION 00:00:00 [facility] PFIZER COVID-19 2020-07-02 Completed [facility] MRNA VACCINATION 00:00:00 [facility] PFIZER COVID-19 2020-07-02 Completed [facility] MRNA VACCINATION 00:00:00 [facility] PFIZER COVID-19 2020-07-02 Completed [facility] MRNA VACCINATION 00:00:00 [facility] PFIZER COVID-19 2020-07-02 Completed [facility] MRNA VACCINATION 00:00:00 [facility] PFIZER COVID-19 2020-07-02 Completed [facility] MRNA VACCINATION 00:00:00 [facility] PFIZER COVID-19 2020-07-02 Completed [facility] MRNA VACCINATION 00:00:00 [facility] PFIZER COVID-19 2020-07-02 Completed [facility] MRNA VACCINATION 00:00:00 [facility] PFIZER COVID-19 2020-07-02 Completed [facility] MRNA VACCINATION 00:00:00 [facility] Influenza Virus 2017-03-08 Completed [facility] Vaccine 00:00:00 [facility] Influenza Virus 2017-03-08 Completed [facility] of Vaccine 00:00:00 [facility] Influenza Virus 2017-03-08 Completed [facility] of Vaccine 00:00:00 [facility] Influenza Virus 2017-03-08 Completed [facility] of Vaccine 00:00:00 [facility] Influenza Virus 2017-03-08 Completed [facility] of Vaccine 00:00:00 [facility] Influenza Virus 2017-03-08 Completed [facility] of Vaccine 00:00:00 [facility] Influenza Virus 2017-03-08 Completed [facility] of Vaccine 00:00:00 [facility] Influenza Virus 2017-03-08 Completed [facility] of Vaccine 00:00:00 [facility] Influenza Virus 2017-03-08 Completed [facility] of Vaccine 00:00:00 [facility] Influenza Virus 2017-03-08 Completed [facility] of Vaccine 00:00:00 [facility] Influenza Virus 2017-03-08 Completed [facility] of Vaccine 00:00:00 [facility] Influenza Virus 2017-03-08 Completed [facility] of Vaccine 00:00:00 [facility] Influenza Virus 2017-03-08 Completed [facility] of Vaccine 00:00:00 [facility] Influenza Virus 2017-03-08 Completed [facility] of Vaccine 00:00:00 [facility] Influenza Virus 2017-03-08 Completed [facility] of Vaccine 00:00:00 [facility] Influenza Virus 2017-03-08 Completed [facility] of Vaccine 00:00:00 [facility] Influenza Virus 2017-03-08 Completed [facility] of Vaccine 00:00:00 [facility] Influenza Virus 2017-03-08 Completed [facility] of Vaccine 00:00:00 [facility] Influenza Virus 2017-03-08 Completed [facility] of Vaccine 00:00:00 [facility] Influenza Virus 2017-03-08 Completed [facility] of Vaccine 00:00:00 [facility] Influenza Virus 2014-01-30 Completed [facility]it y of Vaccine (3+ yrs) 00:00:00 [facility] d[facility] Branch Pneumococcal 13 2014-01-30 Completed Universit y of Conjugate, PCV13 00:00:00 [facility] dical (Prevnar 13) Branch Influenza Virus 2014-01-30 Completed [facility] y of Vaccine (3+ yrs) 00:00:00 [facility] Pneumococcal 13 2014-01-30 Completed [facility] y of Conjugate, PCV13 00:00:00 [facility] dical (Prevnar 13) Branch Influenza Virus 2014-01-30 Completed Univers[facility] y of Vaccine (3+ yrs) 00:00:00 [facility] Branch Pneumococcal 13 2014-01-30 Completed [facility]it y of Conjugate, PCV13 00:00:00 [facility] dical (Prevnar 13) Branch Influenza Virus 2014-01-30 Completed [facility]it y of Vaccine (3+ yrs) 00:00:00 [facility] Pneumococcal 13 2014-01-30 Completed [facility]it y of Conjugate, PCV13 00:00:00 [facility] dical (Prevnar 13) Branch Influenza Virus 2014-01-30 Completed [facility]it y of Vaccine (3+ yrs) 00:00:00 [facility] Pneumococcal 13 2014-01-30 Completed [facility]it y of Conjugate, PCV13 00:00:00 [facility] (Prevnar 13) Branch Influenza Virus 2014-01-30 Completed [facility] y of Vaccine (3+ yrs) 00:00:00 [facility] Pneumococcal 13 2014-01-30 Completed [facility]it y of Conjugate, PCV13 00:00:00 [facility] (Prevnar 13) Branch Influenza Virus 2014-01-30 Completed [facility] of Vaccine (3+ yrs) 00:00:00 [facility] Pneumococcal 13 2014-01-30 Completed [facility]it y of Conjugate, PCV13 00:00:00 [facility] (Prevnar 13) Branch Influenza Virus 2014-01-30 Completed [facility] y of Vaccine (3+ yrs) 00:00:00 [facility] Pneumococcal 13 2014-01-30 Completed [facility]it y of Conjugate, PCV13 00:00:00 [facility]ical (Prevnar 13) Branch Influenza Virus 2014-01-30 Completed [facility] y of Vaccine (3+ yrs) 00:00:00 [facility] Pneumococcal 13 2014-01-30 Completed [facility] y of Conjugate, PCV13 00:00:00 [facility]ical (Prevnar 13) Branch Influenza Virus 2014-01-30 Completed [facility] of Vaccine (3+ yrs) 00:00:00 [facility] Pneumococcal 13 2014-01-30 Completed [facility] y of Conjugate, PCV13 00:00:00 [facility] (Prevnar 13) Branch Influenza Virus 2014-01-30 Completed [facility] y of Vaccine (3+ yrs) 00:00:00 [facility] Pneumococcal 13 2014-01-30 Completed [facility]it y of Conjugate, PCV13 00:00:00 [facility] dical (Prevnar 13) Branch Influenza Virus 2014-01-30 Completed [facility] y of Vaccine (3+ yrs) 00:00:00 [facility] Pneumococcal 13 2014-01-30 Completed [facility]it y of Conjugate, PCV13 00:00:00 [facility] dical (Prevnar 13) Branch Influenza Virus 2014-01-30 Completed [facility] of Vaccine (3+ yrs) 00:00:00 [facility] Pneumococcal 13 2014-01-30 Completed [facility] y of Conjugate, PCV13 00:00:00 [facility] dical (Prevnar 13) Branch Influenza Virus 2014-01-30 Completed [facility] of Vaccine (3+ yrs) 00:00:00 [facility] Pneumococcal 13 2014-01-30 Completed [facility] y of Conjugate, PCV13 00:00:00 [facility] dical (Prevnar 13) Branch Influenza Virus 2014-01-30 Completed [facility] y of Vaccine (3+ yrs) 00:00:00 [facility] Pneumococcal 13 2014-01-30 Completed [facility] y of Conjugate, PCV13 00:00:00 [facility] dical (Prevnar 13) Branch Influenza Virus 2014-01-30 Completed [facility] y of Vaccine (3+ yrs) 00:00:00 [facility] Pneumococcal 13 2014-01-30 Completed [facility] y of Conjugate, PCV13 00:00:00 [facility] dical (Prevnar 13) Branch Influenza Virus 2014-01-30 Completed [facility] y of Vaccine (3+ yrs) 00:00:00 [facility] Pneumococcal 13 2014-01-30 Completed [facility]it y of Conjugate, PCV13 00:00:00 [facility] dical (Prevnar 13) Branch Influenza Virus 2014-01-30 Completed [facility] y of Vaccine (3+ yrs) 00:00:00 [facility] Pneumococcal 13 2014-01-30 Completed [facility]it y of Conjugate, PCV13 00:00:00 [facility] dical (Prevnar 13) Branch Influenza Virus 2014-01-30 Completed [facility] y of Vaccine (3+ yrs) 00:00:00 [facility] Pneumococcal 13 2014-01-30 Completed [facility]it y of Conjugate, PCV13 00:00:00 [facility] dical (Prevnar 13) Branch Influenza Virus 2014-01-30 Completed [facility] y of Vaccine (3+ yrs) 00:00:00 [facility] Pneumococcal 13 2014-01-30 Completed [facility]it y of Conjugate, PCV13 00:00:00 [facility] dical (Prevnar 13) Branch Pneumococcal 2012-02-16 Completed University o f Polysaccharide, 00:00:00 [facility] ical PPSV23 (PNEUMOVAX) Branch Influenza Virus 2012-02-16 Completed [facility]it y of Vaccine 00:00:00 [facility] PPD (TB) 2012-02-16 Completed University of 00:00:00 [facility] Pneumococcal 2012-02-16 Completed University o f Polysaccharide, 00:00:00 [facility] ical PPSV23 (PNEUMOVAX) Branch Influenza Virus 2012-02-16 Completed [facility] y of Vaccine 00:00:00 [facility] PPD (TB) 2012-02-16 Completed University of 00:00:00 [facility] Pneumococcal 2012-02-16 Completed University o f Polysaccharide, 00:00:00 [facility] ical PPSV23 (PNEUMOVAX) Branch Influenza Virus 2012-02-16 Completed [facility] y of Vaccine 00:00:00 [facility] PPD (TB) 2012-02-16 Completed University of 00:00:00 [facility] Pneumococcal 2012-02-16 Completed University o f Polysaccharide, 00:00:00 [facility] ical PPSV23 (PNEUMOVAX) Branch Influenza Virus 2012-02-16 Completed [facility] y of Vaccine 00:00:00 [facility] PPD (TB) 2012-02-16 Completed University of 00:00:00 [facility] Pneumococcal 2012-02-16 Completed University o f Polysaccharide, 00:00:00 [facility] ical PPSV23 (PNEUMOVAX) Branch Influenza Virus 2012-02-16 Completed [facility] Vaccine 00:00:00 [place] [facility] PPD (TB) 2012-02-16 Completed [facility] 00:00:00 [facility] Pneumococcal 2012-02-16 Completed University o f Polysaccharide, 00:00:00 [facility] PPSV23 (PNEUMOVAX) Branch Influenza Virus 2012-02-16 Completed [facility]it y of Vaccine 00:00:00 [facility] PPD (TB) 2012-02-16 Completed [facility] 00:00:00 [facility] Pneumococcal 2012-02-16 Completed [facility] o f Polysaccharide, 00:00:00 [facility] PPSV23 (PNEUMOVAX) Branch Influenza Virus 2012-02-16 Completed [facility]it [facility] Vaccine 00:00:00 [facility] PPD (TB) 2012-02-16 Completed [facility] 00:00:00 [facility] Pneumococcal 2012-02-16 Completed [facility] o f Polysaccharide, 00:00:00 [facility] PPSV23 (PNEUMOVAX) Branch Influenza Virus 2012-02-16 Completed [facility]it y of Vaccine 00:00:00 [facility] PPD (TB) 2012-02-16 Completed [facility] of 00:00:00 [facility] Pneumococcal 2012-02-16 Completed [facility] o f Polysaccharide, 00:00:00 [facility] PPSV23 (PNEUMOVAX) Branch Influenza Virus 2012-02-16 Completed [facility]it [facility] of Vaccine 00:00:00 [facility] PPD (TB) 2012-02-16 Completed [facility] 00:00:00 [facility] Pneumococcal 2012-02-16 Completed [facility] o f Polysaccharide, 00:00:00 [facility] PPSV23 (PNEUMOVAX) Branch Influenza Virus 2012-02-16 Completed [facility]it [facility] of Vaccine 00:00:00 [facility] PPD (TB) 2012-02-16 Completed [facility] of 00:00:00 [facility] Pneumococcal 2012-02-16 Completed [facility] o f Polysaccharide, 00:00:00 [facility] PPSV23 (PNEUMOVAX) Branch Influenza Virus 2012-02-16 Completed [facility]it [facility] Vaccine 00:00:00 [facility] PPD (TB) 2012-02-16 Completed [facility] 00:00:00 [facility] Pneumococcal 2012-02-16 Completed [facility] o f Polysaccharide, 00:00:00 [facility] PPSV23 (PNEUMOVAX) Branch Influenza Virus 2012-02-16 Completed [facility]it [facility] Vaccine 00:00:00 [facility] PPD (TB) 2012-02-16 Completed [facility] 00:00:00 [facility] Pneumococcal 2012-02-16 Completed [facility] o f Polysaccharide, 00:00:00 [facility] PPSV23 (PNEUMOVAX) Branch Influenza Virus 2012-02-16 Completed [facility]it [facility] of Vaccine 00:00:00 [facility] PPD (TB) 2012-02-16 Completed [facility] 00:00:00 [facility] Pneumococcal 2012-02-16 Completed [facility] o f Polysaccharide, 00:00:00 [facility] PPSV23 (PNEUMOVAX) Branch Influenza Virus 2012-02-16 Completed [facility]it [facility] Vaccine 00:00:00 [facility] PPD (TB) 2012-02-16 Completed [facility] 00:00:00 [facility] Pneumococcal 2012-02-16 Completed [facility] o f Polysaccharide, 00:00:00 [facility] PPSV23 (PNEUMOVAX) Branch Influenza Virus 2012-02-16 Completed [facility]it [facility] of Vaccine 00:00:00 [facility] PPD (TB) 2012-02-16 Completed [facility] 00:00:00 [facility] Pneumococcal 2012-02-16 Completed [facility] o f Polysaccharide, 00:00:00 [facility] PPSV23 (PNEUMOVAX) Branch Influenza Virus 2012-02-16 Completed [facility]it [facility] of Vaccine 00:00:00 [facility] PPD (TB) 2012-02-16 Completed [facility] of 00:00:00 [facility] Pneumococcal 2012-02-16 Completed [facility] o f Polysaccharide, 00:00:00 [facility] PPSV23 (PNEUMOVAX) Branch Influenza Virus 2012-02-16 Completed [facility]it [facility] of Vaccine 00:00:00 [facility] PPD (TB) 2012-02-16 Completed [facility] 00:00:00 [facility] Pneumococcal 2012-02-16 Completed [facility] o f Polysaccharide, 00:00:00 [facility] PPSV23 (PNEUMOVAX) Branch Influenza Virus 2012-02-16 Completed [facility]it [facility] of Vaccine 00:00:00 [facility] PPD (TB) 2012-02-16 Completed [facility] 00:00:00 [facility] Pneumococcal 2012-02-16 Completed [facility] o f Polysaccharide, 00:00:00 [facility] PPSV23 (PNEUMOVAX) Branch Influenza Virus 2012-02-16 Completed [facility]it [facility] of Vaccine 00:00:00 [facility] PPD (TB) 2012-02-16 Completed [facility] 00:00:00 [facility] Pneumococcal 2012-02-16 Completed [facility] o f Polysaccharide, 00:00:00 [facility] PPSV23 (PNEUMOVAX) Branch Influenza Virus 2012-02-16 Completed [facility]it [facility] of Vaccine 00:00:00 [facility] PPD (TB) 2012-02-16 Completed [facility] of 00:00:00 [facility] Hep B, Adol or Pedi 2011-09-01 Completed Unive rsity of Dosage 00:00:00 [facility] Hep B, Adol or Pedi 2011-09-01 Completed Unive rsity of Dosage 00:00:00 [facility] Hep B, Adol or Pedi 2011-09-01 Completed Unive rsity of Dosage 00:00:00 [facility] Hep B, Adol or Pedi 2011-09-01 Completed Unive rsity of Dosage 00:00:00 [facility] Hep B, Adol or Pedi 2011-09-01 Completed Unive rsity of Dosage 00:00:00 [facility] Hep B, Adol or Pedi 2011-09-01 Completed Unive rsity of Dosage 00:00:00 [facility] Hep B, Adol or Pedi 2011-09-01 Completed Unive rsity of Dosage 00:00:00 [facility] Hep B, Adol or Pedi 2011-09-01 Completed Unive rsity of Dosage 00:00:00 [facility] Hep B, Adol or Pedi 2011-09-01 Completed Unive rsity of Dosage 00:00:00 [facility] Hep B, Adol or Pedi 2011-09-01 Completed Unive rsity of Dosage 00:00:00 [facility] Hep B, Adol or Pedi 2011-09-01 [...] 2011-03-17 Completed [facility]ive rsity of Dosage 00:00:00 [facility] Hep B, Adol or Pedi [...] Completed Unive rsity of Dosage 00:00:00 [facility] Hep B, Adol or Pedi 2011-03-17 Completed Unive rsity of Dosage 00:00:00 [facility] Hep B, Adol or Pedi 2011-03-17 Completed Unive rsity of Dosage 00:00:00 [facility] Hep B, Adol or Pedi 2011-03-17 Completed Unive rsity of Dosage 00:00:00 [facility] Hep B, Adol or Pedi 2011-03-17 Completed Unive rsity of Dosage 00:00:00 [facility] Hep B, Adol or Pedi 2011-03-17 Completed Unive rsity of Dosage 00:00:00 [facility] Hep B, Adol or Pedi 2011-03-17 Completed Unive rsity of Dosage 00:00:00 [facility] Hep B, Adol or Pedi 2011-03-17 Completed Unive rsity of Dosage 00:00:00 [facility] Hep B, Adol or Pedi 2011-03-17 Completed Unive rsity of Dosage 00:00:00 [facility] Hep B, Adol or Pedi 2011-03-17 Completed Unive rsity of Dosage 00:00:00 [facility] Hep B, Adol or Pedi 2011-03-17 Completed Unive rsity of Dosage 00:00:00 [facility] Hep B, Adol or Pedi 2011-03-17 Completed Unive rsity of Dosage 00:00:00 [facility] Influenza Virus 2011-02-10 Completed Universit y of Vaccine 00:00:00 [facility] Hep B, Adol or Pedi 2011-02-10 Completed Unive rsity of Dosage 00:00:00 [facility] Influenza Virus 2011-02-10 Completed Universit y of Vaccine 00:00:00 [facility] Hep B, Adol or Pedi 2011-02-10 Completed Unive rsity of Dosage 00:00:00 [facility] Influenza Virus 2011-02-10 Completed [facility]it y of Vaccine 00:00:00 [facility] Hep B, Adol or Pedi 2011-02-10 Completed Unive rsity of Dosage 00:00:00 [facility] Influenza Virus 2011-02-10 Completed [facility]it y of Vaccine 00:00:00 [facility] Hep B, Adol or Pedi 2011-02-10 Completed Unive rsity of Dosage 00:00:00 [facility] Influenza Virus 2011-02-10 Completed [facility]it [facility] of Vaccine 00:00:00 [facility] Hep B, Adol or Pedi 2011-02-10 Completed Unive rsity of Dosage 00:00:00 [facility] Influenza Virus 2011-02-10 Completed [facility]it [facility] of Vaccine 00:00:00 [facility] Hep B, Adol or Pedi 2011-02-10 Completed Unive rsity of Dosage 00:00:00 [facility] Influenza Virus 2011-02-10 Completed [facility]it [facility] of Vaccine 00:00:00 [facility] Hep B, Adol or Pedi 2011-02-10 Completed Unive rsity of Dosage 00:00:00 [facility] Influenza Virus 2011-02-10 Completed [facility]it [facility] of Vaccine 00:00:00 [facility] Hep B, Adol or Pedi 2011-02-10 Completed Unive rsity of Dosage 00:00:00 [facility] Influenza Virus 2011-02-10 Completed [facility]it y of Vaccine 00:00:00 [facility] Hep B, Adol or Pedi 2011-02-10 Completed Unive rsity of Dosage 00:00:00 [facility] Influenza Virus 2011-02-10 Completed [facility]it [facility] of Vaccine 00:00:00 [facility] Hep B, Adol or Pedi 2011-02-10 Completed Unive rsity of Dosage 00:00:00 [facility] Influenza Virus 2011-02-10 Completed [facility]it y of Vaccine 00:00:00 [facility] Hep B, Adol or Pedi 2011-02-10 Completed Unive rsity of Dosage 00:00:00 [facility] Influenza Virus 2011-02-10 Completed [facility]it y of Vaccine 00:00:00 [facility] Hep B, Adol or Pedi 2011-02-10 Completed Unive rsity of Dosage 00:00:00 [facility] Influenza Virus 2011-02-10 Completed [facility]it y of Vaccine 00:00:00 [facility] Hep B, Adol or Pedi 2011-02-10 Completed Unive rsity of Dosage 00:00:00 [facility] Influenza Virus 2011-02-10 Completed [facility]it y of Vaccine 00:00:00 [facility] Hep B, Adol or Pedi 2011-02-10 Completed Unive rsity of Dosage 00:00:00 [facility] Influenza Virus 2011-02-10 Completed [facility]it [facility] of Vaccine 00:00:00 [facility] Hep B, Adol or Pedi 2011-02-10 Completed Unive rsity of Dosage 00:00:00 [facility] Influenza Virus 2011-02-10 Completed [facility]it [facility] of Vaccine 00:00:00 [facility] Hep B, Adol or Pedi 2011-02-10 Completed Unive rsity of Dosage 00:00:00 [facility] Influenza Virus 2011-02-10 Completed [facility]it [facility] of Vaccine 00:00:00 [facility] Hep B, Adol or Pedi 2011-02-10 Completed Unive rsity of Dosage 00:00:00 [facility] Influenza Virus 2011-02-10 Completed [facility]it y of Vaccine 00:00:00 [facility] Hep B, Adol or Pedi 2011-02-10 Completed Unive rsity of Dosage 00:00:00 [facility] Influenza Virus 2011-02-10 Completed [facility]it y of Vaccine 00:00:00 [facility] Hep B, Adol or Pedi 2011-02-10 Completed Unive rsity of Dosage 00:00:00 [facility] Influenza Virus 2011-02-10 Completed [facility]it y of Vaccine 00:00:00 [facility] Hep B, Adol or Pedi 2011-02-10 Completed Unive rsity of Dosage 00:00:00 [facility] PPD (TB) 2010-11-18 Completed [facility] of 00:00:00 [facility] TDAP (ADACEL) 2010-11-18 Completed University of VACCINE 00:00:00 [facility] PPD (TB) 2010-11-18 Completed [facility] of 00:00:00 [facility] TDAP (ADACEL) 2010-11-18 Completed University of VACCINE 00:00:00 [facility] PPD (TB) 2010-11-18 Completed [facility] of 00:00:00 [facility] TDAP (ADACEL) 2010-11-18 Completed University of VACCINE 00:00:00 [facility] PPD (TB) 2010-11-18 Completed [facility] of 00:00:00 [facility] TDAP (ADACEL) 2010-11-18 Completed University of VACCINE 00:00:00 [facility] PPD (TB) 2010-11-18 Completed [facility] of 00:00:00 [facility] TDAP (ADACEL) 2010-11-18 Completed University of VACCINE 00:00:00 [facility] PPD (TB) 2010-11-18 Completed [facility] of 00:00:00 [facility] TDAP (ADACEL) 2010-11-18 Completed University of VACCINE 00:00:00 [facility] PPD (TB) 2010-11-18 Completed [facility] of 00:00:00 [facility] TDAP (ADACEL) 2010-11-18 Completed University of VACCINE 00:00:00 [facility] PPD (TB) 2010-11-18 Completed [facility] of 00:00:00 [facility] TDAP (ADACEL) 2010-11-18 Completed University of VACCINE 00:00:00 [facility] PPD (TB) 2010-11-18 Completed [facility] of 00:00:00 [facility] TDAP (ADACEL) 2010-11-18 Completed University of VACCINE 00:00:00 [facility] PPD (TB) 2010-11-18 Completed [facility] of 00:00:00 [facility] TDAP (ADACEL) 2010-11-18 Completed University of VACCINE 00:00:00 [facility] PPD (TB) 2010-11-18 Completed [facility] of 00:00:00 [facility] TDAP (ADACEL) 2010-11-18 Completed University of VACCINE 00:00:00 [facility] PPD (TB) 2010-11-18 Completed [facility] of 00:00:00 [facility] TDAP (ADACEL) 2010-11-18 Completed University of VACCINE 00:00:00 [facility] PPD (TB) 2010-11-18 Completed [facility] of 00:00:00 [facility] TDAP (ADACEL) 2010-11-18 Completed [facility] of VACCINE 00:00:00 [facility] PPD (TB) 2010-11-18 Completed [facility] of 00:00:00 [facility] TDAP (ADACEL) 2010-11-18 Completed University of VACCINE 00:00:00 [facility] PPD (TB) 2010-11-18 Completed [facility] of 00:00:00 [facility] TDAP (ADACEL) 2010-11-18 Completed University of VACCINE 00:00:00 [facility] PPD (TB) 2010-11-18 Completed [facility] of 00:00:00 [facility] TDAP (ADACEL) 2010-11-18 Completed [facility] of VACCINE 00:00:00 [facility] PPD (TB) 2010-11-18 Completed [facility] of 00:00:00 [facility] TDAP (ADACEL) 2010-11-18 Completed [facility] of VACCINE 00:00:00 [facility] PPD (TB) 2010-11-18 Completed [facility] 00:00:00 [facility] TDAP (ADACEL) 2010-11-18 Completed [facility] of VACCINE 00:00:00 [facility] PPD (TB) 2010-11-18 Completed [facility] of 00:00:00 [facility] TDAP (ADACEL) 2010-11-18 Completed University of VACCINE 00:00:00 [facility] PPD (TB) 2010-11-18 Completed [facility] of 00:00:00 [facility] TDAP (ADACEL) 2010-11-18 Completed University of VACCINE 00:00:00 [facility] HEPATITIS A 2004-03-02 Completed [facility] of 00:00:00 [facility] HEPATITIS A 2004-03-02 Completed [facility] of 00:00:00 [facility] HEPATITIS A 2004-03-02 Completed [facility] of 00:00:00 [facility] HEPATITIS A 2004-03-02 Completed [facility] of 00:00:00 [facility] HEPATITIS A 2004-03-02 Completed [facility] of 00:00:00 [facility] HEPATITIS A 2004-03-02 Completed [facility] of 00:00:00 [facility] HEPATITIS A 2004-03-02 Completed [facility] of 00:00:00 [facility] HEPATITIS A 2004-03-02 Completed [facility] of 00:00:00 [facility] HEPATITIS A 2004-03-02 Completed [facility] of 00:00:00 [facility] HEPATITIS A 2004-03-02 Completed [facility] of 00:00:00 [facility] HEPATITIS A 2004-03-02 Completed [facility] of 00:00:00 [facility] HEPATITIS A 2004-03-02 Completed [facility] of 00:00:00 [facility] HEPATITIS A 2004-03-02 Completed [facility] of 00:00:00 [facility] HEPATITIS A 2004-03-02 Completed [facility] of 00:00:00 [facility] HEPATITIS A 2004-03-02 Completed [facility] of 00:00:00 [facility] HEPATITIS A 2004-03-02 Completed [facility] of 00:00:00 [facility] HEPATITIS A 2004-03-02 Completed [facility] of 00:00:00 [facility] HEPATITIS A 2004-03-02 Completed [facility] of 00:00:00 [facility] HEPATITIS A 2004-03-02 Completed [facility] of 00:00:00 [facility] HEPATITIS A 2004-03-02 Completed [facility] of 00:00:00 [facility] HEPATITIS A 2003-08-01 Completed [facility] of 00:00:00 [facility] HEPATITIS A 2003-08-01 Completed [facility] of 00:00:00 [facility] HEPATITIS A 2003-08-01 Completed [facility] of 00:00:00 [facility] HEPATITIS A 2003-08-01 Completed [facility] of 00:00:00 [facility] HEPATITIS A 2003-08-01 Completed [facility] of 00:00:00 [facility] HEPATITIS A 2003-08-01 Completed [facility] of 00:00:00 [facility] HEPATITIS A 2003-08-01 Completed [facility] of 00:00:00 [facility] HEPATITIS A 2003-08-01 Completed [facility] of 00:00:00 [facility] HEPATITIS A 2003-08-01 Completed [facility] of 00:00:00 [facility] HEPATITIS A 2003-08-01 Completed [facility] of 00:00:00 [facility] HEPATITIS A 2003-08-01 Completed [facility] of 00:00:00 [facility] HEPATITIS A 2003-08-01 Completed [facility] of 00:00:00 [facility] HEPATITIS A 2003-08-01 Completed [facility] of 00:00:00 [facility] HEPATITIS A 2003-08-01 Completed [facility] of 00:00:00 [facility] HEPATITIS A 2003-08-01 Completed [facility] of 00:00:00 [facility] HEPATITIS A 2003-08-01 Completed [facility] of 00:00:00 [facility] HEPATITIS A 2003-08-01 Completed [facility] of 00:00:00 [facility] HEPATITIS A 2003-08-01 Completed [facility] of 00:00:00 [facility] HEPATITIS A 2003-08-01 Completed [facility] of 00:00:00 [facility] HEPATITIS A 2003-08-01 Completed [facility] of 00:00:00 [facility] Pneumococcal 2001-10-04 Completed [facility] o [facility] Polysaccharide, 00:00:00 [facility] PPSV23 (PNEUMOVAX) [facility] PPD (TB) 2001-10-04 Completed [facility] of 00:00:00 [facility] Pneumococcal 2001-10-04 Completed [facility] o f Polysaccharide, 00:00:00 [facility] PPSV23 (PNEUMOVAX) [facility] PPD (TB) 2001-10-04 Completed [facility] 00:00:00 [facility] Pneumococcal 2001-10-04 Completed [facility] o f Polysaccharide, 00:00:00 [facility] PPSV23 (PNEUMOVAX) [facility] PPD (TB) 2001-10-04 Completed [facility] 00:00:00 [facility] Pneumococcal 2001-10-04 Completed [facility] o f Polysaccharide, 00:00:00 [facility] PPSV23 (PNEUMOVAX) [facility] PPD (TB) 2001-10-04 Completed [facility] of 00:00:00 [facility] Pneumococcal 2001-10-04 Completed [facility] o f Polysaccharide, 00:00:00 [facility] PPSV23 (PNEUMOVAX) Branch PPD (TB) 2001-10-04 Completed [facility] of 00:00:00 [facility] Pneumococcal 2001-10-04 Completed [facility] o f Polysaccharide, 00:00:00 [facility] PPSV23 (PNEUMOVAX) Branch PPD (TB) 2001-10-04 Completed [facility] of 00:00:00 [facility] Pneumococcal 2001-10-04 Completed [facility] o f Polysaccharide, 00:00:00 [facility] PPSV23 (PNEUMOVAX) Branch PPD (TB) 2001-10-04 Completed [facility] of 00:00:00 [facility] Pneumococcal 2001-10-04 Completed [facility] o f Polysaccharide, 00:00:00 [facility] PPSV23 (PNEUMOVAX) Branch PPD (TB) 2001-10-04 Completed [facility] of 00:00:00 [facility] Pneumococcal 2001-10-04 Completed [facility] o f Polysaccharide, 00:00:00 [facility] PPSV23 (PNEUMOVAX) Branch PPD (TB) 2001-10-04 Completed [facility] of 00:00:00 [facility] Pneumococcal 2001-10-04 Completed [facility] o f Polysaccharide, 00:00:00 [facility] PPSV23 (PNEUMOVAX) Branch PPD (TB) 2001-10-04 Completed [facility] of 00:00:00 [facility] Pneumococcal 2001-10-04 Completed [facility] o f Polysaccharide, 00:00:00 [facility] PPSV23 (PNEUMOVAX) Branch PPD (TB) 2001-10-04 Completed [facility] of 00:00:00 [facility] Pneumococcal 2001-10-04 Completed [facility] o f Polysaccharide, 00:00:00 [facility] PPSV23 (PNEUMOVAX) Branch PPD (TB) 2001-10-04 Completed [facility] of 00:00:00 [facility] Pneumococcal 2001-10-04 Completed [facility] o f Polysaccharide, 00:00:00 [facility] PPSV23 (PNEUMOVAX) [facility] PPD (TB) 2001-10-04 Completed [facility] of 00:00:00 [facility] Pneumococcal 2001-10-04 Completed [facility] o f Polysaccharide, 00:00:00 [facility] PPSV23 (PNEUMOVAX) [facility] PPD (TB) 2001-10-04 Completed [facility] 00:00:00 [facility] Pneumococcal 2001-10-04 Completed [facility] o f Polysaccharide, 00:00:00 [facility] PPSV23 (PNEUMOVAX) Branch PPD (TB) 2001-10-04 Completed [facility] of 00:00:00 [facility] Pneumococcal 2001-10-04 Completed [facility] o f Polysaccharide, 00:00:00 [facility] PPSV23 (PNEUMOVAX) Branch PPD (TB) 2001-10-04 Completed [facility] of 00:00:00 [facility] Pneumococcal 2001-10-04 Completed [facility] o f Polysaccharide, 00:00:00 [facility] PPSV23 (PNEUMOVAX) Branch PPD (TB) 2001-10-04 Completed [facility] of 00:00:00 [facility] Pneumococcal 2001-10-04 Completed [facility] o f Polysaccharide, 00:00:00 [facility] PPSV23 (PNEUMOVAX) Branch PPD (TB) 2001-10-04 Completed [facility] of 00:00:00 [facility] Pneumococcal 2001-10-04 Completed [facility] o f Polysaccharide, 00:00:00 [facility] PPSV23 (PNEUMOVAX) Branch PPD (TB) 2001-10-04 Completed [facility] of 00:00:00 [facility] Pneumococcal 2001-10-04 Completed [facility] o f Polysaccharide, 00:00:00 [facility] PPSV23 (PNEUMOVAX) Branch PPD (TB) 2001-10-04 Completed [facility] 00:00:00 [facility] Vital Signs Vital Name Observation Time Observation Value Comments Source Systolic blood 2022-05-10 22:00:00 159 mm[Hg] Univer [facility] of pressure [facility] Diastolic blood 2022-05-10 22:00:00 87 mm[Hg] Unive rsity of pressure [facility] Heart rate 2022-05-10 22:00:00 56 /[facility] Body temperature 2022-05-10 22:00:00 36.61 Amina [facility] of [facility] Respiratory rate 2022-05-10 22:00:00 17 /min [facility] Oxygen saturation in 2022-05-10 22:00:00 98 /min [facility] of Arterial blood by [place] [facility] Body weight 2022-05-10 16:29:00 78.926 kg [facility] BMI 2022-05-10 16:29:00 29.87 kg/m2 [facility] Systolic blood 2022-05-08 22:30:00 168 mm[Hg] [facility]iver [facility]ity of pressure [facility] Diastolic blood 2022-05-08 22:30:00 85 mm[Hg] Unive rsity of pressure [facility] Heart rate 2022-05-08 22:30:00 68 /min [facility] Oxygen saturation in 2022-05-08 22:30:00 100 /min [facility] of Arterial blood by [place] [facility] Body temperature 2022-05-08 22:22:00 35.89 Amina [facility] Respiratory rate 2022-05-08 22:22:00 14 [...] 99 /min [facility] of Arterial blood by [place] [facility] Body temperature 2022-05-06 20:12:00 36.5 Amina [facility] Body height 2022-05-06 20:12:00 162.6 cm [facility] Body weight 2022-05-06 20:12:00 78.926 kg [facility] BMI 2022-05-06 20:12:00 29.87 kg/m2 [facility] Systolic blood 2022-04-22 19:50:00 156 mm[Hg] Univer [facility] of pressure [facility] Diastolic blood 2022-04-22 19:50:00 89 mm[Hg] Unive rsity of pressure [facility] Heart rate 2022-04-22 19:50:00 69 /min [facility] Body temperature 2022-04-22 19:50:00 36.67 Amina [facility] Respiratory rate 2022-04-22 19:50:00 17 /min [facility] Body height 2022-04-22 19:50:00 162.6 cm [facility]i ty of [facility] Body weight 2022-04-22 19:50:00 80.74 kg [facility] BMI 2022-04-22 19:50:00 30.55 kg/m2 [facility] Oxygen saturation in 2022-04-22 19:50:00 96 /min [facility] Arterial blood by [facility] Pulse oximetry Branch Systolic blood 2022-03-05 15:23:00 167 mm[Hg] Univer sity of pressure [facility] Diastolic blood 2022-03-05 15:23:00 105 mm[Hg] Unive rsity of pressure [facility] Heart rate 2022-03-05 15:23:00 49 /min [facility] Body temperature 2022-03-05 15:18:00 36.67 Amina [facility] Respiratory rate 2022-03-05 15:18:00 18 /min Univ [facility] Body height 2022-03-05 15:18:00 162.6 cm [facility] Body weight 2022-03-05 15:18:00 74.707 kg [facility] BMI 2022-03-05 15:18:00 28.27 kg/m2 [facility] Systolic blood 2022-02-16 21:41:00 169 mm[Hg] Univer [facility]ity of pressure [facility] Diastolic blood 2022-02-16 21:41:00 86 mm[Hg] Unive rsity of pressure [facility] Heart rate 2022-02-16 21:41:00 51 /min [facility] Body temperature 2022-02-16 21:41:00 36.56 Amina [facility] ersity of [facility] Respiratory rate 2022-02-16 21:41:00 17 /min [facility] Oxygen saturation in 2022-02-16 21:41:00 98 /min [facility] Arterial blood by [facility] Pulse oximetry Branch Body height 2022-02-11 16:02:00 162.6 cm [facility] Body weight 2022-02-11 16:02:00 79.379 kg [facility] BMI 2022-02-11 16:02:00 30.04 kg/m2 [facility] Systolic blood 2021-11-20 13:47:00 165 mm[Hg] Univer sity of pressure [facility] Diastolic blood 2021-11-20 13:47:00 83 mm[Hg] Unive rsity of pressure [facility] Heart rate 2021-11-20 13:47:00 58 /min [facility] Body temperature 2021-11-20 13:42:00 36.39 Amina [facility] ersity of [facility] Respiratory rate 2021-11-20 13:42:00 16 /min [facility] ersity of [facility] Body height 2021-11-20 13:42:00 162.6 cm [facility] Body weight 2021-11-20 13:42:00 84.369 kg [facility] BMI 2021-11-20 13:42:00 31.93 kg/m2 [facility] Systolic blood 2021-07-14 15:18:00 142 [...] 22:00:00 159 mm[Hg] [facility] Diastolic blood 2022-05-10 22:00:00 87 mm[Hg] Unive rsity of pressure [facility] Heart rate 2022-05-10 22:00:00 56 /min [facility] Body temperature 2022-05-10 22:00:00 36.61 Amina [facility] Respiratory rate 2022-05-10 22:00:00 17 /min Univ [facility] Oxygen saturation in 2022-05-10 22:00:00 98 /min [facility] Arterial blood by [place] [employer] [facility] Pulse oximetry Branch Body weight 2022-05-10 16:29:00 78.926 kg [facility] BMI 2022-05-10 16:29:00 29.87 kg/m2 [facility] Body height 2022-05-06 20:12:00 162.6 cm [facility] Systolic blood 2022-03-05 15:23:00 167 mm[Hg] [facility] pressure [facility] Diastolic blood 2022-03-05 15:23:00 105 mm[Hg] Unive rsity of pressure [facility] Heart rate 2022-03-05 15:23:00 49 /min [facility] Body temperature 2022-03-05 15:18:00 36.67 Amina [facility] Respiratory rate 2022-03-05 15:18:00 18 /min Univ [facility] Body height 2022-03-05 15:18:00 162.6 cm [facility] Body weight 2022-03-05 15:18:00 74.707 kg [facility] BMI 2022-03-05 15:18:00 28.27 kg/m2 [facility] Oxygen saturation in 2022-02-16 21:41:00 98 /min [facility]ial blood by [place] [employer] [facility] Pulse oximetry Branch Systolic blood 2020-12-08 15:48:00 125 mm[Hg] [facility] Di[facility] blood 2020-12-08 15:48:00 76 mm[Hg] Metho [facility] pressure Heart rate 2020-12-08 15:48:00 64 /min [facility] Body temperature 2020-12-08 15:48:00 36.61 Amina [facility] Respiratory rate 2020-12-08 15:48:00 17 /min [facility] Body height 2020-12-08 15:48:00 162.6 cm [facility] Body weight 2020-12-08 15:48:00 98.884 kg [facility] BMI 2020-12-08 15:48:00 37.42 kg/m2 [facility] Oxygen saturation in 2020-12-08 15:48:00 97 /min [facility] Arterial blood by Pulse oximetry Respitory Rate 2020-08-30 13:00:00 [facility] [place] Systolic (mm Hg) 2020-08-30 13:00:00 Caesar rial [facility] Diastolic (mm Hg) 2020-08-30 13:00:00 Mem orial [place] Systolic (mm Hg) 2020-08-30 11:00:00 Caesar rial [facility] Diastolic (mm Hg) 2020-08-30 11:00:00 Mem orial [facility] Temperature Oral (F) 2020-08-30 11:00:00 98.4 F [facility] Respitory Rate 2020-08-30 11:00:00 [facility] [place] Respitory Rate 2020-08-30 10:00:00 Mem[facility] Systolic (mm Hg) 2020-08-30 10:00:00 Caesar rial [facility] Diastolic (mm Hg) 2020-08-30 10:00:00 Mem orial [facility] Temperature Oral (F) 2020-08-30 00:00:00 96.9 F [facility] [place] Temperature Oral (F) 2020-08-29 11:26:00 97.6 F [facility] [place] Height 2020-08-29 10:30:00 162.56 cm [facility] Weight 2020-08-29 10:30:00 [facility] BMI Calculated 2020-08-29 10:30:00 [facility] [place] Procedures Procedure Date / Time Performing Clinician Source Performed URINALYSIS 2022-05-10 19:36:00 Home Matthews [facility] TROPONIN I 2022-05-10 18:34:00 Home [facility] COMP. METABOLIC PANEL 2022-05-10 18:34:00 Home Matthews [facility] ([id number]) [facility] CBC WITH DIFF 2022-05-10 18:34:00 Home Matthews [facility] XR CHEST 2 VW 2022-05-10 17:24:58 Home Matthews [facility] CONSENT/REFUSAL FOR 2022-05-10 16:26:23 Doctor Unassigned, [facility] DIAGNOSIS AND TREATMENT Gerster [facility] CONSENT/REFUSAL FOR 2022-05-10 16:26:09 Doctor Unasseunice, [facility] DIAGNOSIS AND TREATMENT Gerster [facility] URINALYSIS 2022-05-08 22:43:00 Theresa Hickman [facility] XR CHEST 2 VW 2022-05-06 22:56:53 Anette Olea [facility] COMP. METABOLIC PANEL 2022-05-06 22:14:00 Anette Olea [facility] ([id number]) Medical Branch CBC WITH DIFF 2022-05-06 22:14:00 Anette Olea [facility] COVID-19 (ID NOW RAPID 2022-05-06 22:14:00 Anette Olea [facility] TESTING) Medical Branch BASIC METABOLIC PANEL (NA, 2022-04-22 21:23:00 Paulette Gray [facility] K, CL, CO2, GLUCOSE, BUN, Medica l Branch CREATININE, CA) CBC WITH DIFF 2022-04-22 21:23:00 [facility] CONSENT/REFUSAL FOR 2022-04-22 19:45:46 Doctor Unassigned, [facility] DIAGNOSIS AND TREATMENT [facility] SARS-COV-2 COVID-19 2022-03-05 16:09:27 [facility] DIMITRIS-SUCROSE VACCINE [address] [place] [address] Branch YRS+, BIVALENT 0.3ML, IM, (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) FLU 2022-03-05 16:09:27 [facility] VACC(),65+YR,0.5 Medica l Branch ML,IM,ADJUVANTED,QUAD(FLUA D) FLU 2022-03-05 16:09:27 [facility] VACC(),65+YR,0.5 Medica l Branch ML,IM,ADJUVANTED,QUAD(FLUA D) SARS-COV-2 COVID-19 2022-03-05 16:09:27 [facility] DIMITRIS-SUCROSE VACCINE 12 Medical Branch YRS+, BIVALENT 0.3ML, IM, (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) MAGNESIUM 2022-02-15 09:41:00 Sofia Garcia [facility] BASIC METABOLIC PANEL (NA, 2022-02-15 09:41:00 Radha Sofia [facility] K, CL, CO2, GLUCOSE, BUN, Medica l Branch CREATININE, CA) CBC WITH DIFF 2022-02-15 09:41:00 Radha [facility] N-TERMINAL PRO-BNP 2022-02-15 09:41:00 Sofia Garcia [facility] CBC WITH DIFF 2022-02-15 09:41:00 Sofia Garcia [facility] BASIC METABOLIC PANEL (NA, 2022-02-15 09:41:00 Sofia Garcia [facility] K, CL, CO2, GLUCOSE, BUN, Medica l Branch CREATININE, CA) MAGNESIUM 2022-02-15 09:41:00 Radha [facility] N-TERMINAL PRO-BNP 2022-02-15 09:41:00 Sofia Garcia [facility] BASIC METABOLIC PANEL (NA, 2022-02-13 09:40:00 Sofia Garcia [facility] K, CL, CO2, GLUCOSE, BUN, Medica l Branch CREATININE, CA) CBC WITH DIFF 2022-02-13 09:40:00 Radha [facility] BASIC METABOLIC PANEL (NA, 2022-02-13 09:40:00 Sofia Garcia [facility] K, CL, CO2, GLUCOSE, BUN, Medica l Branch CREATININE, CA) CBC WITH DIFF 2022-02-13 09:40:00 Radha [facility] TROPONIN I 2022-02-11 23:41:00 [facility]NP 2022-02-11 23:41:00 GarciaSofia [facility] TROPONIN I 2022-02-11 23:41:00 [facility] N-TERMINAL PRO-BNP 2022-02-11 23:41:00 GarciaSofia kauffman [facility] HB ECG ROUTINE & RHYTHM 2022-02-11 22:15:36 [facility] (TTE) 2022-02-11 21:26:50 [facility] (TTE) 2022-02-11 21:26:50 [facility] 2022-02-11 07:45:43 Reilly Means [facility] CONTRAST [facility] CT ABDOMEN PELVIS W 2022-02-11 07:45:43 Miguelangel Reilly [facility] CONTRAST [facility] RAPID INFLUENZA A/B 2022-02-11 06:54:00 Miguelangel [facility] RAPID INFLUENZA A/B 2022-02-11 06:54:00 Miguelangel Reilly [facility] URINALYSIS 2022-02-11 06:45:00 [facility]illy [facility] URINE CULTURE 2022-02-11 06:45:00 Reilly [facility] URINALYSIS 2022-02-11 06:45:00 Reilly [facility] URINE CULTURE 2022-02-11 06:45:00 Reilly [facility] HB ECG ROUTINE & RHYTHM 2022-02-11 05:22:08 Reilly Means [facility] HB ECG ROUTINE & RHYTHM 2022-02-11 05:22:08 Reilly Means [facility] BLOOD CULTURE SCREEN 2022-02-11 04:58:00 Reilly Means [facility] TROPONIN I 2022-02-11 04:58:00 Reilly Means [facility] COMP. METABOLIC PANEL 2022-02-11 04:58:00 Reilly Means [facility] ([id number]) Medical Branch CBC WITH DIFF 2022-02-11 04:58:00 Reilly [facility] PROTHROMBIN TIME / INR 2022-02-11 04:58:00 [facility] ACTIV[facility] PARTIAL THRMPLAS 2022-02-11 04:58:00 Reilly Means [facility] N-TERMINAL PRO-BNP 2022-02-11 04:58:00 Reilly Means [facility] LACTIC ACID WHOLE BLOOD 2022-02-11 04:58:00 Reilly Means [facility] COVID-19 (ID NOW RAPID 2022-02-11 04:58:00 Reilly Means [facility] TESTING) Medical Branch LAB ONLY COVID 2022-02-11 04:58:00 Reilly Means [facility] CBC WITH DIFF 2022-02-11 04:58:00 Reilly [facility] ACTIVATED PARTIAL THRMPLAS 2022-02-11 04:58:00 Reilly Means [facility] PROTHROMBIN TIME / INR 2022-02-11 04:58:00 Reilly Means [facility] COVID-19 (ID NOW RAPID 2022-02-11 04:58:00 Reilly Means [facility] TESTING) Medical Branch COMP. METABOLIC PANEL 2022-02-11 04:58:00 Reilly Means [facility] ([id number]) Medical Branch TROPONIN I 2022-02-11 04:58:00 Reilly [facility] N-TERMINAL PRO-BNP 2022-02-11 04:58:00 Reilly Means [facility] BLOOD CULTURE SCREEN 2022-02-11 04:58:00 Reilly Means [facility] LACTIC ACID WHOLE BLOOD 2022-02-11 04:58:00 Reilly Means [facility] LAB ONLY COVID 2022-02-11 04:58:00 Reilly Means [facility] XR CHEST 1 VW 2022-02-11 04:27:42 Reilly Means [facility] XR CHEST 1 VW 2022-02-11 04:27:42 Miguelangel [facility] HOSPITAL ADMISSION 2022-02-10 05:01:00 Doctor Unassigned, [facility] Name [facility] HOSPITAL ADMISSION 2022-02-10 05:01:00 Doctor Unassigned, [facility] ECG 12-LEAD 2021-07-14 15:14:00 Elan Lira [facility] [id number] 2021-06-17 00:00:00 RIKY CLARK [facility] GASTROINTESTINAL PANEL 2020-12-08 22:21:00 Jailyn [facility] XR ABDOMEN 1 VW 2020-12-08 18:06:32 Eliseo Arce spital OR [place] < 1 HOUR 2020-09-05 22:39:00 Eliseo Arce spital SURGICAL PATHOLOGY REQUEST 2020-09-05 21:54:00 Eliseo Arce [facility] XR CHEST 1 VW PORTABLE 2020-09-05 19:55:00 Jailyn [facility] DISCHARGE PATIENT 2020-09-05 17:27:55 Lucas [facility] [place] AN ELECTIVE 2020-09-05 16:47:23 Kirit Flood [facility] ENDOTRACHEAL AIRWAY EGD, INTRAOPERATIVE 2020-09-05 16:27:00 [facility] 2020-09-05 15:04:00 Sarai Maharaj [facility] TIME (PTT) M. PROTHROMBIN TIME WITH INR 2020-09-05 15:04:00 Mindy Maharaj [facility] M. Plan of Care Planned Activity Planned Date Details Comments Source Future Scheduled 2022-09-10 SHINGLES VACCINES (1 Met [facility] Test 15:06:53 of 2) [code = SHINGLES VACCINES (1 of 2)] Future Scheduled 2022-09-10 BREAST CANCER [facility] Test 15:06:53 SCREENING [code = BREAST CANCER SCREENING] Future Scheduled 2022-09-10 [facility]ONOSCOPY [facility]CREENING [facility] Test 15:06:53 [code = COLONOSCOPY SCREENING] Future Scheduled 2022-09-10 HEPATITIS B VACCINES Met [facility] Test 15:06:53 (1 of 3 - Risk 3-dose series) [code = HEPATITIS B VACCINES (1 of 3 - Risk 3-dose series)] Future Scheduled 2022-09-10 COVID-19 VACCINE (3 - Me [facility] Test 15:06:53 Booster for Pfizer series) [code = COVID-19 VACCINE (3 - Booster for Pfizer series)] Future Scheduled 2022-09-10 65+ [facility]53 VACCINE (4 - PPSV23 if available, else PCV20) [code = 65+ PNEUMOCOCCAL VACCINE (4 - PPSV23 if available, else PCV20)] Future Scheduled 2022-09-10 INFLUENZA VACCINE [facility] Test 15:06:53 [code = INFLUENZA VACCINE] Future Scheduled 2022-09-10 SHINGLES VACCINES (1 Met [facility] Test 15:06:53 of 2) [code = SHINGLES VACCINES (1 of 2)] Future Scheduled 2022-09-10 BREAST CANCER [facility] Test 15:06:53 SCREENING [code = BREAST CANCER SCREENING] Future Scheduled 2022-09-10 COLONOSCOPY SCREENING [facility] Test 15:06:53 [code = COLONOSCOPY SCREENING] Future Scheduled 2022-09-10 HEPATITIS B VACCINES Met [facility] Test 15:06:53 (1 of 3 - Risk 3-dose series) [code = HEPATITIS B VACCINES (1 of 3 - Risk 3-dose series)] Future Scheduled 2022-09-10 COVID-19 VACCINE (3 - [facility] Test 15:06:53 Booster for Pfizer series) [code = COVID-19 VACCINE (3 - Booster for Pfizer series)] Future Scheduled 2022-09-10 65+ [facility]AL [facility] 15:06:53 VACCINE (4 - PPSV23 if available, else PCV20) [code = 65+ PNEUMOCOCCAL VACCINE (4 - PPSV23 if available, else PCV20)] Future Scheduled 2022-09-10 INFLUENZA VACCINE [facility] Test 15:06:53 [code = INFLUENZA VACCINE] Future Scheduled 2022-09-10 SHINGLES VACCINES (1 Met [facility] Test 15:06:53 of 2) [code = SHINGLES VACCINES (1 of 2)] Future Scheduled 2022-09-10 BREAST CANCER [facility] Test 15:06:53 SCREENING [code = BREAST CANCER SCREENING] Future Scheduled 2022-09-10 COLONOSCOPY SCREENING [facility] Test 15:06:53 [code = COLONOSCOPY SCREENING] Future Scheduled 2022-09-10 HEPATITIS B VACCINES Met [facility] Test 15:06:53 (1 of 3 - Risk 3-dose series) [code = HEPATITIS B VACCINES (1 of 3 - Risk 3-dose series)] Future Scheduled 2022-09-10 COVID-19 VACCINE (3 - [facility] Test 15:06:53 Booster for Pfizer series) [code = COVID-19 VACCINE (3 - Booster for Pfizer series)] Future Scheduled 2022-09-10 65+ [facility]AL [facility] 15:06:53 VACCINE (4 - PPSV23 if available, else PCV20) [code = 65+ PNEUMOCOCCAL VACCINE (4 - PPSV23 if available, else PCV20)] Future Scheduled 2022-09-10 INFLUENZA VACCINE Method [facility] Test 15:06:53 [code = INFLUENZA VACCINE] Future Scheduled 2022-09-10 SHINGLES VACCINES (1 Met [facility] Test 15:06:53 of 2) [code = SHINGLES VACCINES (1 of 2)] Future Scheduled 2022-09-10 BREAST CANCER [facility] Test 15:06:53 SCREENING [code = BREAST CANCER SCREENING] Future Scheduled 2022-09-10 COLONOSCOPY SCREENING [facility] Test 15:06:53 [code = COLONOSCOPY SCREENING] Future Scheduled 2022-09-10 HEPATITIS B VACCINES Met [facility] Test 15:06:53 (1 of 3 - Risk 3-dose series) [code = HEPATITIS B VACCINES (1 of 3 - Risk 3-dose series)] Future Scheduled 2022-09-10 COVID-19 VACCINE (3 - [facility] Test 15:06:53 Booster for Pfizer series) [code = COVID-19 VACCINE (3 - Booster for Pfizer series)] Future Scheduled 2022-09-10 65+ [facility]AL [facility] 15:06:53 VACCINE (4 - PPSV23 if available, else PCV20) [code = 65+ PNEUMOCOCCAL VACCINE (4 - PPSV23 if available, else PCV20)] Future Scheduled 2022-09-10 INFLUENZA VACCINE [facility] Test 15:06:53 [code = INFLUENZA VACCINE] Future Scheduled 2022-08-26 SHINGLES VACCINES (1 Met [facility] Test 14:43:48 of 2) [code = SHINGLES VACCINES (1 of 2)] Future Scheduled 2022-08-26 BREAST CANCER [facility] Test 14:43:48 SCREENING [code = BREAST CANCER SCREENING] Future Scheduled 2022-08-26 COLONOSCOPY SCREENING [facility] Test 14:43:48 [code = COLONOSCOPY SCREENING] Future Scheduled 2022-08-26 HEPATITIS B VACCINES Met [facility] Test 14:43:48 (1 of 3 - Risk 3-dose series) [code = HEPATITIS B VACCINES (1 of 3 - Risk 3-dose series)] Future Scheduled 2022-08-26 COVID-19 VACCINE (3 - [facility] Test 14:43:48 Booster for Pfizer series) [code = COVID-19 VACCINE (3 - Booster for Pfizer series)] Future Scheduled 2022-08-26 65+ [facility]CCAL [facility] 14:43:48 VACCINE (4 - PPSV23 if available, else PCV20) [code = 65+ PNEUMOCOCCAL VACCINE (4 - PPSV23 if available, else PCV20)] Future Scheduled 2022-08-26 INFLUENZA VACCINE Method [facility] Test 14:43:48 [code = INFLUENZA VACCINE] Future Scheduled 2022-08-07 SHINGLES VACCINES (1 Met [facility] Test 23:30:11 of 2) [code = SHINGLES VACCINES (1 of 2)] Future Scheduled 2022-08-07 BREAST CANCER [facility] Test 23:30:11 SCREENING [code = BREAST CANCER SCREENING] Future Scheduled 2022-08-07 COLONOSCOPY SCREENING [facility] Test 23:30:11 [code = COLONOSCOPY SCREENING] Future Scheduled 2022-08-07 HEPATITIS B VACCINES Met [facility] Test 23:30:11 (1 of 3 - Risk 3-dose series) [code = HEPATITIS B VACCINES (1 of 3 - Risk 3-dose series)] Future Scheduled 2022-08-07 COVID-19 VACCINE (3 - Me [facility] Test 23:30:11 Booster for Pfizer series) [code = COVID-19 VACCINE (3 - Booster for Pfizer series)] Future Scheduled 2022-08-07 65+ [facility]CCAL [facility] Test 23:30:11 VACCINE (4 - PPSV23 if available, else PCV20) [code = 65+ PNEUMOCOCCAL VACCINE (4 - PPSV23 if available, else PCV20)] Future Scheduled 2022-08-07 INFLUENZA VACCINE Method [facility] Test 23:30:11 [code = INFLUENZA VACCINE] Future Scheduled 2022-08-07 SHINGLES VACCINES (1 Met [facility] Test 23:30:11 of 2) [code = SHINGLES VACCINES (1 of 2)] Future Scheduled 2022-08-07 BREAST CANCER [facility] Test 23:30:11 SCREENING [code = BREAST CANCER SCREENING] Future Scheduled 2022-08-07 COLONOSCOPY SCREENING [facility] Test 23:30:11 [code = COLONOSCOPY SCREENING] Future Scheduled 2022-08-07 HEPATITIS B VACCINES Met [facility] Test 23:30:11 (1 of 3 - Risk 3-dose series) [code = HEPATITIS B VACCINES (1 of 3 - Risk 3-dose series)] Future Scheduled 2022-08-07 COVID-19 VACCINE (3 - [facility] Test 23:30:11 Booster for Pfizer series) [code = COVID-19 VACCINE (3 - Booster for Pfizer series)] Future Scheduled 2022-08-07 65+ [facility]CCAL [facility] Test 23:30:11 VACCINE (4 - PPSV23 if available, else PCV20) [code = 65+ PNEUMOCOCCAL VACCINE (4 - PPSV23 if available, else PCV20)] Future Scheduled 2022-08-07 INFLUENZA VACCINE Method [facility] Test 23:30:11 [code = INFLUENZA VACCINE] Future Scheduled 2022-08-06 SHINGLES VACCINES (1 Met [facility] Test 15:48:02 of 2) [code = SHINGLES VACCINES (1 of 2)] Future Scheduled 2022-08-06 BREAST CANCER [facility] Test 15:48:02 SCREENING [code = BREAST CANCER SCREENING] Future Scheduled 2022-08-06 COLONOSCOPY SCREENING [facility] Test 15:48:02 [code = COLONOSCOPY SCREENING] Future Scheduled 2022-08-06 HEPATITIS B VACCINES Met [facility] Test 15:48:02 (1 of 3 - Risk 3-dose series) [code = HEPATITIS B VACCINES (1 of 3 - Risk 3-dose series)] Future Scheduled 2022-08-06 COVID-19 VACCINE (3 - [facility] Test 15:48:02 Booster for Pfizer series) [code = COVID-19 VACCINE (3 - Booster for Pfizer series)] Future Scheduled 2022-08-06 65+ [facility]CCAL [facility] Test 15:48:02 VACCINE (4 - PPSV23 if available, else PCV20) [code = 65+ PNEUMOCOCCAL VACCINE (4 - PPSV23 if available, else PCV20)] Future Scheduled 2022-08-06 INFLUENZA VACCINE [facility] Test 15:48:02 [code = INFLUENZA VACCINE] Future Scheduled 2022-06-11 SHINGLES VACCINES (1 Met [facility] Test 16:10:12 of 2) [code = SHINGLES VACCINES (1 of 2)] Future Scheduled 2022-06-11 BREAST CANCER [facility] Test 16:10:12 SCREENING [code = BREAST CANCER SCREENING] Future Scheduled 2022-06-11 COLONOSCOPY SCREENING [facility] Test 16:10:12 [code = COLONOSCOPY SCREENING] Future Scheduled 2022-06-11 HEPATITIS B VACCINES Met [facility] Test 16:10:12 (1 of 3 - Risk 3-dose series) [code = HEPATITIS B VACCINES (1 of 3 - Risk 3-dose series)] Future Scheduled 2022-06-11 COVID-19 VACCINE (3 - Me [facility] Test 16:10:12 Booster for Pfizer series) [code = COVID-19 VACCINE (3 - Booster for Pfizer series)] Future Scheduled 2022-06-11 65+ [facility]CCAL [facility] Test 16:10:12 VACCINE (4 - PPSV23 if available, else PCV20) [code = 65+ PNEUMOCOCCAL VACCINE (4 - PPSV23 if available, else PCV20)] Future Scheduled 2022-06-11 INFLUENZA VACCINE [facility] Test 16:10:12 [code = INFLUENZA VACCINE] Future Scheduled 2022-06-11 SHINGLES VACCINES (1 [facility] [place] [facility] Test 16:10:12 of 2) [code = SHINGLES VACCINES (1 of 2)] Future Scheduled 2022-06-11 BREAST CANCER [facility] Test 16:10:12 SCREENING [code = BREAST CANCER SCREENING] Future Scheduled 2022-06-11 COLONOSCOPY SCREENING [facility] Test 16:10:12 [code = COLONOSCOPY SCREENING] Future Scheduled 2022-06-11 HEPATITIS B VACCINES Met [facility] Test 16:10:12 (1 of 3 - Risk 3-dose series) [code = HEPATITIS B VACCINES (1 of 3 - Risk 3-dose series)] Future Scheduled 2022-06-11 COVID-19 VACCINE (3 - Me [facility] Test 16:10:12 Booster for Pfizer series) [code = COVID-19 VACCINE (3 - Booster for Pfizer series)] Future Scheduled 2022-06-11 65+ PNEUMOCOCCAL [facility] Test 16:10:12 VACCINE (4 - PPSV23 if available, else PCV20) [code = 65+ PNEUMOCOCCAL VACCINE (4 - PPSV23 if available, else PCV20)] Future Scheduled 2022-06-11 INFLUENZA VACCINE Method [facility] Test 16:10:12 [code = INFLUENZA VACCINE] Future Scheduled 2022-06-11 SHINGLES VACCINES (1 Met [facility] Test 16:10:12 of 2) [code = SHINGLES VACCINES (1 of 2)] Future Scheduled 2022-06-11 BREAST CANCER [facility] Test 16:10:12 SCREENING [code = BREAST CANCER SCREENING] Future Scheduled 2022-06-11 COLONOSCOPY SCREENING [facility] Test 16:10:12 [code = COLONOSCOPY SCREENING] Future Scheduled 2022-06-11 HEPATITIS B VACCINES Met [facility] Test 16:10:12 (1 of 3 - Risk 3-dose series) [code = HEPATITIS B VACCINES (1 of 3 - Risk 3-dose series)] Future Scheduled 2022-06-11 COVID-19 VACCINE (3 - [facility] Test 16:10:12 Booster for Pfizer series) [code = COVID-19 VACCINE (3 - Booster for Pfizer series)] Future Scheduled 2022-06-11 65+ [facility] Test 16:10:12 VACCINE (4 - PPSV23 if available, else PCV20) [code = 65+ PNEUMOCOCCAL VACCINE (4 - PPSV23 if available, else PCV20)] Future Scheduled 2022-06-11 INFLUENZA VACCINE Method [facility] Test 16:10:12 [code = INFLUENZA VACCINE] Future Scheduled 2022-06-11 SHINGLES VACCINES (1 Met [facility] Test 16:10:12 of 2) [code = SHINGLES VACCINES (1 of 2)] Future Scheduled 2022-06-11 BREAST CANCER [facility] Test 16:10:12 SCREENING [code = BREAST CANCER SCREENING] Future Scheduled 2022-06-11 COLONOSCOPY SCREENING [facility] Test 16:10:12 [code = COLONOSCOPY SCREENING] Future Scheduled 2022-06-11 HEPATITIS B VACCINES Met [facility] Test 16:10:12 (1 of 3 - Risk 3-dose series) [code = HEPATITIS B VACCINES (1 of 3 - Risk 3-dose series)] Future Scheduled 2022-06-11 COVID-19 VACCINE (3 - Me [facility] Test 16:10:12 Booster for Pfizer series) [code = COVID-19 VACCINE (3 - Booster for Pfizer series)] Future Scheduled 2022-06-11 65+ [facility] 16:10:12 VACCINE (4 - PPSV23 if available, else PCV20) [code = 65+ PNEUMOCOCCAL VACCINE (4 - PPSV23 if available, else PCV20)] Future Scheduled 2022-06-11 INFLUENZA VACCINE Method [facility] Test 16:10:12 [code = INFLUENZA VACCINE] Future Scheduled 2022-06-11 SHINGLES VACCINES (1 Met [facility] Test 16:10:12 of 2) [code = SHINGLES VACCINES (1 of 2)] Future Scheduled 2022-06-11 BREAST CANCER [facility] Test 16:10:12 SCREENING [code = BREAST CANCER SCREENING] Future Scheduled 2022-06-11 COLONOSCOPY SCREENING [facility] Test 16:10:12 [code = COLONOSCOPY SCREENING] Future Scheduled 2022-06-11 HEPATITIS B VACCINES Met [facility] Test 16:10:12 (1 of 3 - Risk 3-dose series) [code = HEPATITIS B VACCINES (1 of 3 - Risk 3-dose series)] Future Scheduled 2022-06-11 COVID-19 VACCINE (3 - Me [facility] Test 16:10:12 Booster for Pfizer series) [code = COVID-19 VACCINE (3 - Booster for Pfizer series)] Future Scheduled 2022-06-11 65+ [facility] 16:10:12 VACCINE (4 - PPSV23 if available, else PCV20) [code = 65+ PNEUMOCOCCAL VACCINE (4 - PPSV23 if available, else PCV20)] Future Scheduled 2022-06-11 INFLUENZA VACCINE Method [facility] Test 16:10:12 [code = INFLUENZA VACCINE] Future Scheduled 2022-06-11 SHINGLES VACCINES (1 Met [facility] Test 16:10:12 of 2) [code = SHINGLES VACCINES (1 of 2)] Future Scheduled 2022-06-11 BREAST CANCER [facility] Test 16:10:12 SCREENING [code = BREAST CANCER SCREENING] Future Scheduled 2022-06-11 COLONOSCOPY SCREENING [facility] Test 16:10:12 [code = COLONOSCOPY SCREENING] Future Scheduled 2022-06-11 HEPATITIS B VACCINES Met [facility] Test 16:10:12 (1 of 3 - Risk 3-dose series) [code = HEPATITIS B VACCINES (1 of 3 - Risk 3-dose series)] Future Scheduled 2022-06-11 COVID-19 VACCINE (3 - [facility] Test 16:10:12 Booster for Pfizer series) [code = COVID-19 VACCINE (3 - Booster for Pfizer series)] Future Scheduled 2022-06-11 65+ [facility] Test 16:10:12 VACCINE (4 - PPSV23 if available, else PCV20) [code = 65+ PNEUMOCOCCAL VACCINE (4 - PPSV23 if available, else PCV20)] Future Scheduled 2022-06-11 INFLUENZA VACCINE Method [facility] Test 16:10:12 [code = INFLUENZA VACCINE] Future Scheduled 2022-06-11 SHINGLES VACCINES (1 Met [facility] Test 16:10:12 of 2) [code = SHINGLES VACCINES (1 of 2)] Future Scheduled 2022-06-11 BREAST CANCER [facility] Test 16:10:12 SCREENING [code = BREAST CANCER SCREENING] Future Scheduled 2022-06-11 COLONOSCOPY SCREENING [facility] Test 16:10:12 [code = COLONOSCOPY SCREENING] Future Scheduled 2022-06-11 HEPATITIS B VACCINES Met [facility] Test 16:10:12 (1 of 3 - Risk 3-dose series) [code = HEPATITIS B VACCINES (1 of 3 - Risk 3-dose series)] Future Scheduled 2022-06-11 COVID-19 VACCINE (3 - [facility] Test 16:10:12 Booster for Pfizer series) [code = COVID-19 VACCINE (3 - Booster for Pfizer series)] Future Scheduled 2022-06-11 65[facility]:10:12 VACCINE (4 - PPSV23 if available, else PCV20) [code = 65+ PNEUMOCOCCAL VACCINE (4 - PPSV23 if available, else PCV20)] Future Scheduled 2022-06-11 INFLUENZA VACCINE Method [facility] Test 16:10:12 [code = INFLUENZA VACCINE] Future Scheduled 2022-06-11 SHINGLES VACCINES (1 Met [facility] Test 16:10:12 of 2) [code = SHINGLES VACCINES (1 of 2)] Future Scheduled 2022-06-11 BREAST CANCER [facility] Test 16:10:12 SCREENING [code = BREAST CANCER SCREENING] Future Scheduled 2022-06-11 COLONOSCOPY SCREENING [facility] Test 16:10:12 [code = COLONOSCOPY SCREENING] Future Scheduled 2022-06-11 HEPATITIS B VACCINES Met [facility] Test 16:10:12 (1 of 3 - Risk 3-dose series) [code = HEPATITIS B VACCINES (1 of 3 - Risk 3-dose series)] Future Scheduled 2022-06-11 COVID-19 VACCINE (3 - [facility] Test 16:10:12 Booster for Pfizer series) [code = COVID-19 VACCINE (3 - Booster for Pfizer series)] Future Scheduled 2022-06-11 65[facility] 16:10:12 VACCINE (4 - PPSV23 if available, else PCV20) [code = 65+ PNEUMOCOCCAL VACCINE (4 - PPSV23 if available, else PCV20)] Future Scheduled 2022-06-11 INFLUENZA VACCINE Method [facility] Test 16:10:12 [code = INFLUENZA VACCINE] Future Scheduled 2022-06-11 SHINGLES VACCINES (1 Met [facility] Test 16:10:12 of 2) [code = SHINGLES VACCINES (1 of 2)] Future Scheduled 2022-06-11 BREAST CANCER [facility] Test 16:10:12 SCREENING [code = BREAST CANCER SCREENING] Future Scheduled 2022-06-11 COLONOSCOPY SCREENING [facility] Test 16:10:12 [code = COLONOSCOPY SCREENING] Future Scheduled 2022-06-11 HEPATITIS B VACCINES Met [facility] Test 16:10:12 (1 of 3 - Risk 3-dose series) [code = HEPATITIS B VACCINES (1 of 3 - Risk 3-dose series)] Future Scheduled 2022-06-11 COVID-19 VACCINE (3 - [facility] Test 16:10:12 Booster for Pfizer series) [code = COVID-19 VACCINE (3 - Booster for Pfizer series)] Future Scheduled 2022-06-11 65+ [facility] Test 16:10:12 VACCINE (4 - PPSV23 if available, else PCV20) [code = 65+ PNEUMOCOCCAL VACCINE (4 - PPSV23 if available, else PCV20)] Future Scheduled 2022-06-11 INFLUENZA VACCINE Method [facility] Test 16:10:12 [code = INFLUENZA VACCINE] Future Scheduled 2022-05-10 SHINGLES VACCINES (1 Met [facility] Test 10:21:35 of 2) [code = SHINGLES VACCINES (1 of 2)] Future Scheduled 2022-05-10 BREAST CANCER [facility] Test 10:21:35 SCREENING [code = BREAST CANCER SCREENING] Future Scheduled 2022-05-10 COLONOSCOPY SCREENING [facility] Test 10:21:35 [code = COLONOSCOPY SCREENING] Future Scheduled 2022-05-10 HEPATITIS B VACCINES Met [facility] Test 10:21:35 (1 of 3 - Risk 3-dose series) [code = HEPATITIS B VACCINES (1 of 3 - Risk 3-dose series)] Future Scheduled 2022-05-10 COVID-19 VACCINE (3 - [facility] Test 10:21:35 Booster for Pfizer series) [code = COVID-19 VACCINE (3 - Booster for Pfizer series)] Future Scheduled 2022-05-10 65+ [facility] Test 10:21:35 VACCINE (4 - PPSV23 if available, else PCV20) [code = 65+ PNEUMOCOCCAL VACCINE (4 - PPSV23 if available, else PCV20)] Future Scheduled 2022-05-10 INFLUENZA VACCINE Method [facility] Test 10:21:35 [code = INFLUENZA VACCINE] Future Scheduled 2022-05-10 SHINGLES VACCINES (1 Met [facility] Test 10:21:35 of 2) [code = SHINGLES VACCINES (1 of 2)] Future Scheduled 2022-05-10 BREAST CANCER [facility] Test 10:21:35 SCREENING [code = BREAST CANCER SCREENING] Future Scheduled 2022-05-10 COLONOSCOPY SCREENING [facility] Test 10:21:35 [code = COLONOSCOPY SCREENING] Future Scheduled 2022-05-10 HEPATITIS B VACCINES Met [facility] Test 10:21:35 (1 of 3 - Risk 3-dose series) [code = HEPATITIS B VACCINES (1 of 3 - Risk 3-dose series)] Future Scheduled 2022-05-10 COVID-19 VACCINE (3 - [facility] Test 10:21:35 Booster for Pfizer series) [code = COVID-19 VACCINE (3 - Booster for Pfizer series)] Future Scheduled 2022-05-10 65+ PNEUMOCOCCAL [facility] Test 10:21:35 VACCINE (4 - PPSV23 if available, else PCV20) [code = 65+ PNEUMOCOCCAL VACCINE (4 - PPSV23 if available, else PCV20)] Future Scheduled 2022-05-10 INFLUENZA VACCINE Method [facility] Test 10:21:35 [code = INFLUENZA VACCINE] Future Scheduled 2022-05-06 SHINGLES VACCINES (1 Met [facility] Test 14:03:13 of 2) [code = SHINGLES VACCINES (1 of 2)] Future Scheduled 2022-05-06 BREAST CANCER [facility] Test 14:03:13 SCREENING [code = BREAST CANCER SCREENING] Future Scheduled 2022-05-06 COLONOSCOPY SCREENING [facility] Test 14:03:13 [code = COLONOSCOPY SCREENING] Future Scheduled 2022-05-06 HEPATITIS B VACCINES Met [facility] Test 14:03:13 (1 of 3 - Risk 3-dose series) [code = HEPATITIS B VACCINES (1 of 3 - Risk 3-dose series)] Future Scheduled 2022-05-06 COVID-19 VACCINE (3 - [facility] Test 14:03:13 Booster for Pfizer series) [code = COVID-19 VACCINE (3 - Booster for Pfizer series)] Future Scheduled 2022-05-06 65+ PNEUMOCOCCAL [facility] Test 14:03:13 VACCINE (4 - PPSV23 if available, else PCV20) [code = 65+ PNEUMOCOCCAL VACCINE (4 - PPSV23 if available, else PCV20)] Future Scheduled 2022-05-06 INFLUENZA VACCINE Method [facility] Test 14:03:13 [code = INFLUENZA VACCINE] Future Scheduled 2022-04-30 SHINGLES VACCINES (1 Met [facility] Test 01:07:32 of 2) [code = SHINGLES VACCINES (1 of 2)] Future Scheduled 2022-04-30 BREAST CANCER [facility] Test 01:07:32 SCREENING [code = BREAST CANCER SCREENING] Future Scheduled 2022-04-30 [facility]CREENING [facility] Test 01:07:32 [code = COLONOSCOPY SCREENING] Future Scheduled 2022-04-30 HEPATITIS B VACCINES Met [facility] Test 01:07:32 (1 of 3 - Risk 3-dose series) [code = HEPATITIS B VACCINES (1 of 3 - Risk 3-dose series)] Future Scheduled 2022-04-30 COVID-19 VACCINE (3 - [facility] Test 01:07:32 Booster for Pfizer series) [code = COVID-19 VACCINE (3 - Booster for Pfizer series)] Future Scheduled 2022-04-30 65+ PNEUMOCOCCAL [facility] Test 01:07:32 VACCINE (4 - PPSV23 if available, else PCV20) [code = 65+ PNEUMOCOCCAL VACCINE (4 - PPSV23 if available, else PCV20)] Future Scheduled 2022-04-30 INFLUENZA VACCINE Method [facility] Test 01:07:32 [code = INFLUENZA VACCINE] Future Scheduled 2022-04-30 SHINGLES VACCINES (1 Met [facility] Test 01:07:32 of 2) [code = SHINGLES VACCINES (1 of 2)] Future Scheduled 2022-04-30 BREAST CANCER [facility] Test 01:07:32 SCREENING [code = BREAST CANCER SCREENING] Future Scheduled 2022-04-30 COLONOSCOPY SCREENING [facility] Test 01:07:32 [code = COLONOSCOPY SCREENING] Future Scheduled 2022-04-30 HEPATITIS B VACCINES Met [facility] Test 01:07:32 (1 of 3 - Risk 3-dose series) [code = HEPATITIS B VACCINES (1 of 3 - Risk 3-dose series)] Future Scheduled 2022-04-30 COVID-19 VACCINE (3 - [facility] Test 01:07:32 Booster for Pfizer series) [code = COVID-19 VACCINE (3 - Booster for Pfizer series)] Future Scheduled 2022-04-30 65+ [facility] Test 01:07:32 VACCINE (4 - PPSV23 if available, else PCV20) [code = 65+ PNEUMOCOCCAL VACCINE (4 - PPSV23 if available, else PCV20)] Future Scheduled 2022-04-30 INFLUENZA VACCINE Method [facility] Test 01:07:32 [code = INFLUENZA VACCINE] Future Scheduled 2022-04-30 SHINGLES VACCINES (1 Met [facility] Test 01:07:32 of 2) [code = SHINGLES VACCINES (1 of 2)] Future Scheduled 2022-04-30 BREAST CANCER [facility] Test 01:07:32 SCREENING [code = BREAST CANCER SCREENING] Future Scheduled 2022-04-30 COLONOSCOPY SCREENING [facility] Test 01:07:32 [code = COLONOSCOPY SCREENING] Future Scheduled 2022-04-30 HEPATITIS B VACCINES Met [facility] Test 01:07:32 (1 of 3 - Risk 3-dose series) [code = HEPATITIS B VACCINES (1 of 3 - Risk 3-dose series)] Future Scheduled 2022-04-30 COVID-19 VACCINE (3 - [facility] Test 01:07:32 Booster for Pfizer series) [code = COVID-19 VACCINE (3 - Booster for Pfizer series)] Future Scheduled 2022-04-30 65+ PNEUMOCOCCAL [facility] Test 01:07:32 VACCINE (4 - PPSV23 if available, else PCV20) [code = 65+ PNEUMOCOCCAL VACCINE (4 - PPSV23 if available, else PCV20)] Future Scheduled 2022-04-30 INFLUENZA VACCINE Method [facility] Test 01:07:32 [code = INFLUENZA VACCINE] Future Scheduled 2022-04-25 SHINGLES VACCINES (1 Met [facility] Test 01:45:02 of 2) [code = SHINGLES VACCINES (1 of 2)] Future Scheduled 2022-04-25 BREAST CANCER [facility] Test 01:45:02 SCREENING [code = BREAST CANCER SCREENING] Future Scheduled 2022-04-25 COLONOSCOPY SCREENING [facility] Test 01:45:02 [code = COLONOSCOPY SCREENING] Future Scheduled 2022-04-25 HEPATITIS B VACCINES Met [facility] Test 01:45:02 (1 of 3 - Risk 3-dose series) [code = HEPATITIS B VACCINES (1 of 3 - Risk 3-dose series)] Future Scheduled 2022-04-25 COVID-19 VACCINE (3 - [facility] Test 01:45:02 Booster for Pfizer series) [code = COVID-19 VACCINE (3 - Booster for Pfizer series)] Future Scheduled 2022-04-25 65+ [facility] Test 01:45:02 VACCINE (4 - PPSV23 if available, else PCV20) [code = 65+ PNEUMOCOCCAL VACCINE (4 - PPSV23 if available, else PCV20)] Future Scheduled 2022-04-25 [facility] 01:45:02 [code = INFLUENZA VACCINE] Future Scheduled 2022-03-25 SHINGLES VACCINES (1 Met [facility] Test 14:48:42 of 2) [code = SHINGLES VACCINES (1 of 2)] Future Scheduled 2022-03-25 BREAST CANCER [facility] Test 14:48:42 SCREENING [code = BREAST CANCER SCREENING] Future Scheduled 2022-03-25 COLONOSCOPY SCREENING [facility] Test 14:48:42 [code = COLONOSCOPY SCREENING] Future Scheduled 2022-03-25 HEPATITIS B VACCINES Met [facility] Test 14:48:42 (1 of 3 - Risk 3-dose series) [code = HEPATITIS B VACCINES (1 of 3 - Risk 3-dose series)] Future Scheduled 2022-03-25 COVID-19 VACCINE (3 - [facility] Test 14:48:42 Booster for Pfizer series) [code = COVID-19 VACCINE (3 - Booster for Pfizer series)] Future Scheduled 2022-03-25 65+ [facility]AL [facility] Test 14:48:42 VACCINE (4 - PPSV23 if available, else PCV20) [code = 65+ PNEUMOCOCCAL VACCINE (4 - PPSV23 if available, else PCV20)] Future Scheduled 2022-03-25 INFLUENZA VACCINE [facility] Test 14:48:42 [code = INFLUENZA VACCINE] Future Scheduled 2022-03-25 SHINGLES VACCINES (1 Met [facility] Test 14:48:42 of 2) [code = SHINGLES VACCINES (1 of 2)] Future Scheduled 2022-03-25 BREAST CANCER [facility] Test 14:48:42 SCREENING [code = BREAST CANCER SCREENING] Future Scheduled 2022-03-25 COLONOSCOPY SCREENING [facility] Test 14:48:42 [code = COLONOSCOPY SCREENING] Future Scheduled 2022-03-25 HEPATITIS B VACCINES Met [facility] Test 14:48:42 (1 of 3 - Risk 3-dose series) [code = HEPATITIS B VACCINES (1 of 3 - Risk 3-dose series)] Future Scheduled 2022-03-25 COVID-19 VACCINE (3 - [facility] Test 14:48:42 Booster for Pfizer series) [code = COVID-19 VACCINE (3 - Booster for Pfizer series)] Future Scheduled 2022-03-25 65[facility] Test 14:48:42 VACCINE (4 - PPSV23 if available, else PCV20) [code = 65+ PNEUMOCOCCAL VACCINE (4 - PPSV23 if available, else PCV20)] Future Scheduled 2022-03-25 INFLUENZA VACCINE [facility] Test 14:48:42 [code = INFLUENZA VACCINE] Future Scheduled 2022-03-25 SHINGLES VACCINES (1 Met [facility] Test 14:48:42 of 2) [code = SHINGLES VACCINES (1 of 2)] Future Scheduled 2022-03-25 BREAST CANCER [facility] Test 14:48:42 SCREENING [code = BREAST CANCER SCREENING] Future Scheduled 2022-03-25 COLONOSCOPY SCREENING [facility] Test 14:48:42 [code = COLONOSCOPY SCREENING] Future Scheduled 2022-03-25 HEPATITIS B VACCINES Met [facility] Test 14:48:42 (1 of 3 - Risk 3-dose series) [code = HEPATITIS B VACCINES (1 of 3 - Risk 3-dose series)] Future Scheduled 2022-03-25 COVID-19 VACCINE (3 - [facility] Test 14:48:42 Booster for Pfizer series) [code = COVID-19 VACCINE (3 - Booster for Pfizer series)] Future Scheduled 2022-03-25 65+ [facility]AL [facility] Test 14:48:42 VACCINE (4 - PPSV23 if available, else PCV20) [code = 65+ PNEUMOCOCCAL VACCINE (4 - PPSV23 if available, else PCV20)] Future Scheduled 2022-03-25 INFLUENZA VACCINE Method [facility] Test 14:48:42 [code = INFLUENZA VACCINE] Future Scheduled 2022-03-25 SHINGLES VACCINES (1 Met [facility] Test 14:48:42 of 2) [code = SHINGLES VACCINES (1 of 2)] Future Scheduled 2022-03-25 BREAST CANCER [facility] Test 14:48:42 SCREENING [code = BREAST CANCER SCREENING] Future Scheduled 2022-03-25 COLONOSCOPY SCREENING [facility] Test 14:48:42 [code = COLONOSCOPY SCREENING] Future Scheduled 2022-03-25 HEPATITIS B VACCINES Met [facility] Test 14:48:42 (1 of 3 - Risk 3-dose series) [code = HEPATITIS B VACCINES (1 of 3 - Risk 3-dose series)] Future Scheduled 2022-03-25 COVID-19 VACCINE (3 - [facility] Test 14:48:42 Booster for Pfizer series) [code = COVID-19 VACCINE (3 - Booster for Pfizer series)] Future Scheduled 2022-03-25 65+ [facility]AL [facility] Test 14:48:42 VACCINE (4 - PPSV23 if available, else PCV20) [code = 65+ PNEUMOCOCCAL VACCINE (4 - PPSV23 if available, else PCV20)] Future Scheduled 2022-03-25 INFLUENZA VACCINE [facility] Test 14:48:42 [code = INFLUENZA VACCINE] Future Scheduled 2022-03-25 SHINGLES VACCINES (1 Met [facility] Test 14:48:42 of 2) [code = SHINGLES VACCINES (1 of 2)] Future Scheduled 2022-03-25 BREAST CANCER [facility] Test 14:48:42 SCREENING [code = BREAST CANCER SCREENING] Future Scheduled 2022-03-25 COLONOSCOPY SCREENING [facility] Test 14:48:42 [code = COLONOSCOPY SCREENING] Future Scheduled 2022-03-25 HEPATITIS B VACCINES Met [facility] Test 14:48:42 (1 of 3 - Risk 3-dose series) [code = HEPATITIS B VACCINES (1 of 3 - Risk 3-dose series)] Future Scheduled 2022-03-25 COVID-19 VACCINE (3 - [facility] Test 14:48:42 Booster for Pfizer series) [code = COVID-19 VACCINE (3 - Booster for Pfizer series)] Future Scheduled 2022-03-25 65+ [facility]CCAL [facility] Test 14:48:42 VACCINE (4 - PPSV23 if available, else PCV20) [code = 65+ PNEUMOCOCCAL VACCINE (4 - PPSV23 if available, else PCV20)] Future Scheduled 2022-03-25 INFLUENZA VACCINE [facility] Test 14:48:42 [code = INFLUENZA VACCINE] Future Scheduled 2022-03-25 SHINGLES VACCINES (1 Met [facility] Test 14:48:42 of 2) [code = SHINGLES VACCINES (1 of 2)] Future Scheduled 2022-03-25 BREAST CANCER [facility] Test 14:48:42 SCREENING [code = BREAST CANCER SCREENING] Future Scheduled 2022-03-25 COLONOSCOPY SCREENING [facility] Test 14:48:42 [code = COLONOSCOPY SCREENING] Future Scheduled 2022-03-25 [facility]ES [facility] Test 14:48:42 (1 of 3 - Risk 3-dose series) [code = HEPATITIS B VACCINES (1 of 3 - Risk 3-dose series)] Future Scheduled 2022-03-25 COVID-19 VACCINE (3 - [facility] Test 14:48:42 Booster for Pfizer series) [code = COVID-19 VACCINE (3 - Booster for Pfizer series)] Future Scheduled 2022-03-25 65[facility] 14:48:42 VACCINE (4 - PPSV23 if available, else PCV20) [code = 65+ PNEUMOCOCCAL VACCINE (4 - PPSV23 if available, else PCV20)] Future Scheduled 2022-03-25 INFLUENZA VACCINE [facility] Test 14:48:42 [code = INFLUENZA VACCINE] Future Scheduled 2022-03-25 SHINGLES VACCINES (1 Met [facility] Test 14:48:42 of 2) [code = SHINGLES VACCINES (1 of 2)] Future Scheduled 2022-03-25 BREAST CANCER [facility] Test 14:48:42 SCREENING [code = BREAST CANCER SCREENING] Future Scheduled 2022-03-25 COLONOSCOPY SCREENING [facility] Test 14:48:42 [code = COLONOSCOPY SCREENING] Future Scheduled 2022-03-25 HEPATITIS B VACCINES Met [facility] Test 14:48:42 (1 of 3 - Risk 3-dose series) [code = HEPATITIS B VACCINES (1 of 3 - Risk 3-dose series)] Future Scheduled 2022-03-25 COVID-19 VACCINE (3 - [facility] Test 14:48:42 Booster for Pfizer series) [code = COVID-19 VACCINE (3 - Booster for Pfizer series)] Future Scheduled 2022-03-25 65+ [facility] 14:48:42 VACCINE (4 - PPSV23 if available, else PCV20) [code = 65+ PNEUMOCOCCAL VACCINE (4 - PPSV23 if available, else PCV20)] Future Scheduled 2022-03-25 INFLUENZA VACCINE Method [facility] Test 14:48:42 [code = INFLUENZA VACCINE] Future Scheduled 2022-03-25 SHINGLES VACCINES (1 Met [facility] Test 14:48:42 of 2) [code = SHINGLES VACCINES (1 of 2)] Future Scheduled 2022-03-25 BREAST CANCER [facility] Test 14:48:42 SCREENING [code = BREAST CANCER SCREENING] Future Scheduled 2022-03-25 COLONOSCOPY SCREENING Me [facility] Test 14:48:42 [code = COLONOSCOPY SCREENING] Future Scheduled 2022-03-25 HEPATITIS B VACCINES Met [facility] Test 14:48:42 (1 of 3 - Risk 3-dose series) [code = HEPATITIS B VACCINES (1 of 3 - Risk 3-dose series)] Future Scheduled 2022-03-25 COVID-19 VACCINE (3 - Me [facility] Test 14:48:42 Booster for Pfizer series) [code = COVID-19 VACCINE (3 - Booster for Pfizer series)] Future Scheduled 2022-03-25 65+ [facility]OCCAL [facility] Test 14:48:42 VACCINE (4 - PPSV23 if available, else PCV20) [code = 65+ PNEUMOCOCCAL VACCINE (4 - PPSV23 if available, else PCV20)] Future Scheduled 2022-03-25 INFLUENZA VACCINE Method [facility] Test 14:48:42 [code = INFLUENZA VACCINE] Future Scheduled 2022-03-25 SHINGLES VACCINES (1 Met [facility] Test 14:48:42 of 2) [code = SHINGLES VACCINES (1 of 2)] Future Scheduled 2022-03-25 BREAST CANCER [facility] Test 14:48:42 SCREENING [code = BREAST CANCER SCREENING] Future Scheduled 2022-03-25 COLONOSCOPY SCREENING [facility] Test 14:48:42 [code = COLONOSCOPY SCREENING] Future Scheduled 2022-03-25 HEPATITIS B VACCINES Met [facility] Test 14:48:42 (1 of 3 - Risk 3-dose series) [code = HEPATITIS B VACCINES (1 of 3 - Risk 3-dose series)] Future Scheduled 2022-03-25 COVID-19 VACCINE (3 - Me [facility] Test 14:48:42 Booster for Pfizer [...] of 2)] Future Scheduled 2022-03-04 BREAST CANCER [facility] Test 14:03:57 SCREENING [code = BREAST CANCER SCREENING] Future Scheduled 2022-03-04 COLONOSCOPY SCREENING [facility] Test 14:03:57 [code = COLONOSCOPY SCREENING] Future Scheduled 2022-03-04 HEPATITIS B VACCINES Met [facility] Test 14:03:57 (1 of 3 - Risk 3-dose series) [code = HEPATITIS B VACCINES (1 of 3 - Risk 3-dose series)] Future Scheduled 2022-03-04 COVID-19 VACCINE (3 - [facility] Test 14:03:57 Booster for Pfizer series) [code = COVID-19 VACCINE (3 - Booster for Pfizer series)] Future Scheduled 2022-03-04 65+ PNEUMOCOCCAL [facility] Test 14:03:57 VACCINE (4 - PPSV23 if available, else PCV20) [code = 65+ PNEUMOCOCCAL VACCINE (4 - PPSV23 if available, else PCV20)] Future Scheduled 2022-03-04 INFLUENZA VACCINE [facility] Test 14:03:57 [code = INFLUENZA VACCINE] Future Scheduled 2022-03-04 SHINGLES VACCINES (1 Met [facility] Test 14:03:57 of 2) [code = SHINGLES VACCINES (1 of 2)] Future Scheduled 2022-03-04 BREAST CANCER [facility] Test 14:03:57 SCREENING [code = BREAST CANCER SCREENING] Future Scheduled 2022-03-04 COLONOSCOPY SCREENING [facility] Test 14:03:57 [code = COLONOSCOPY SCREENING] Future Scheduled 2022-03-04 HEPATITIS B VACCINES Met [facility] Test 14:03:57 (1 of 3 - Risk 3-dose series) [code = HEPATITIS B VACCINES (1 of 3 - Risk 3-dose series)] Future Scheduled 2022-03-04 COVID-19 VACCINE (3 - [facility] Test 14:03:57 Booster for Pfizer series) [code = COVID-19 VACCINE (3 - Booster for Pfizer series)] Future Scheduled 2022-03-04 65+ [facility] 14:03:57 VACCINE (4 - PPSV23 if available, else PCV20) [code = 65+ PNEUMOCOCCAL VACCINE (4 - PPSV23 if available, else PCV20)] Future Scheduled 2022-03-04 INFLUENZA VACCINE Method [facility] Test 14:03:57 [code = INFLUENZA VACCINE] Future Scheduled 2022-03-04 SHINGLES VACCINES (1 Met [facility] Test 14:03:57 of 2) [code = SHINGLES VACCINES (1 of 2)] Future Scheduled 2022-03-04 BREAST CANCER [facility] Test 14:03:57 SCREENING [code = BREAST CANCER SCREENING] Future Scheduled 2022-03-04 COLONOSCOPY SCREENING [facility] Test 14:03:57 [code = COLONOSCOPY SCREENING] Future Scheduled 2022-03-04 HEPATITIS B VACCINES Met [facility] Test 14:03:57 (1 of 3 - Risk 3-dose series) [code = HEPATITIS B VACCINES (1 of 3 - Risk 3-dose series)] Future Scheduled 2022-03-04 COVID-19 VACCINE (3 - Me [facility] Test 14:03:57 Booster for Pfizer series) [code = COVID-19 VACCINE (3 - Booster for Pfizer series)] Future Scheduled 2022-03-04 65+ [facility] Test 14:03:57 VACCINE (4 - PPSV23 if available, else PCV20) [code = 65+ PNEUMOCOCCAL VACCINE (4 - PPSV23 if available, else PCV20)] Future Scheduled 2022-03-04 INFLUENZA VACCINE Method [facility] Test 14:03:57 [code = INFLUENZA VACCINE] Future Scheduled 2022-03-04 SHINGLES VACCINES (1 Met [facility] Test 14:03:57 of 2) [code = SHINGLES VACCINES (1 of 2)] Future Scheduled 2022-03-04 BREAST CANCER [facility] Test 14:03:57 SCREENING [code = BREAST CANCER SCREENING] Future Scheduled 2022-03-04 COLONOSCOPY SCREENING [facility] Test 14:03:57 [code = COLONOSCOPY SCREENING] Future Scheduled 2022-03-04 HEPATITIS B VACCINES Met [facility] Test 14:03:57 (1 of 3 - Risk 3-dose series) [code = HEPATITIS B VACCINES (1 of 3 - Risk 3-dose series)] Future Scheduled 2022-03-04 COVID-19 VACCINE (3 - [facility] Test 14:03:57 Booster for Pfizer series) [code = COVID-19 VACCINE (3 - Booster for Pfizer series)] Future Scheduled 2022-03-04 65+ PNEUMOCOCCAL [facility] Test 14:03:57 VACCINE (4 - PPSV23 if available, else PCV20) [code = 65+ PNEUMOCOCCAL VACCINE (4 - PPSV23 if available, else PCV20)] Future Scheduled 2022-03-04 INFLUENZA VACCINE Method [facility] Test 14:03:57 [code = INFLUENZA VACCINE] Future Scheduled 2022-02-11 SHINGLES VACCINES (1 Met [facility] Test 13:39:12 of 2) [code = SHINGLES VACCINES (1 of 2)] Future Scheduled 2022-02-11 BREAST CANCER [facility] Test 13:39:12 SCREENING [code = BREAST CANCER SCREENING] Future Scheduled 2022-02-11 COLONOSCOPY SCREENING [facility] Test 13:39:12 [code = COLONOSCOPY SCREENING] Future Scheduled 2022-02-11 HEPATITIS B VACCINES Met [facility] Test 13:39:12 (1 of 3 - Risk 3-dose series) [code = HEPATITIS B VACCINES (1 of 3 - Risk 3-dose series)] Future Scheduled 2022-02-11 COVID-19 VACCINE (3 - [facility] Test 13:39:12 Booster for Pfizer series) [code = COVID-19 VACCINE (3 - Booster for Pfizer series)] Future Scheduled 2022-02-11 65+ PNEUMOCOCCAL [facility] Test 13:39:12 VACCINE (4 - PPSV23 or PCV20) [code = 65+ PNEUMOCOCCAL VACCINE (4 - PPSV23 or PCV20)] Future Scheduled 2022-02-11 INFLUENZA VACCINE Method [facility] Test 13:39:12 [code = INFLUENZA VACCINE] Future Scheduled 2022-01-29 SHINGLES VACCINES (1 Met [facility] Test 14:07:20 of 2) [code = SHINGLES VACCINES (1 of 2)] Future Scheduled 2022-01-29 BREAST CANCER [facility] Test 14:07:20 SCREENING [code = BREAST CANCER SCREENING] Future Scheduled 2022-01-29 COLONOSCOPY SCREENING [facility] Test 14:07:20 [code = COLONOSCOPY SCREENING] Future Scheduled 2022-01-29 HEPATITIS B VACCINES Met [facility] Test 14:07:20 (1 of 3 - Risk 3-dose series) [code = HEPATITIS B VACCINES (1 of 3 - Risk 3-dose series)] Future Scheduled 2022-01-29 COVID-19 VACCINE (3 - Me [facility] Test 14:07:20 Booster for Pfizer series) [code = COVID-19 VACCINE (3 - Booster for Pfizer series)] Future Scheduled 2022-01-29 65+ PNEUMOCOCCAL [facility] Test 14:07:20 VACCINE (4 - PPSV23 or PCV20) [code = 65+ PNEUMOCOCCAL VACCINE (4 - PPSV23 or PCV20)] Future Scheduled 2022-01-29 INFLUENZA VACCINE Method [facility] Test 14:07:20 [code = INFLUENZA VACCINE] Future Scheduled 2022-01-29 SHINGLES VACCINES (1 Met [facility] Test 14:07:20 of 2) [code = SHINGLES VACCINES (1 of 2)] Future Scheduled 2022-01-29 BREAST CANCER [facility] Test 14:07:20 SCREENING [code = BREAST CANCER SCREENING] Future Scheduled 2022-01-29 COLONOSCOPY SCREENING [facility] Test 14:07:20 [code = COLONOSCOPY SCREENING] Future Scheduled 2022-01-29 HEPATITIS B VACCINES Met [facility] Test 14:07:20 (1 of 3 - Risk 3-dose series) [code = HEPATITIS B VACCINES (1 of 3 - Risk 3-dose series)] Future Scheduled 2022-01-29 COVID-19 VACCINE (3 - [facility] Test 14:07:20 Booster for Pfizer series) [code = COVID-19 VACCINE (3 - Booster for Pfizer series)] Future Scheduled 2022-01-29 65+ PNEUMOCOCCAL [facility] Test 14:07:20 VACCINE (4 - PPSV23 or PCV20) [code = 65+ PNEUMOCOCCAL VACCINE (4 - PPSV23 or PCV20)] Future Scheduled 2022-01-29 INFLUENZA VACCINE Method [facility] Test 14:07:20 [code = INFLUENZA VACCINE] Future Scheduled 2022-01-29 SHINGLES VACCINES (1 Met [facility] Test 14:07:20 of 2) [code = SHINGLES VACCINES (1 of 2)] Future Scheduled 2022-01-29 BREAST CANCER [facility] Test 14:07:20 SCREENING [code = BREAST CANCER SCREENING] Future Scheduled 2022-01-29 COLONOSCOPY SCREENING [facility] Test 14:07:20 [code = COLONOSCOPY SCREENING] Future Scheduled 2022-01-29 HEPATITIS B VACCINES Met [facility] Test 14:07:20 (1 of 3 - Risk 3-dose series) [code = HEPATITIS B VACCINES (1 of 3 - Risk 3-dose series)] Future Scheduled 2022-01-29 COVID-19 VACCINE (3 - [facility] Test 14:07:20 Booster for Pfizer series) [code = COVID-19 VACCINE (3 - Booster for Pfizer series)] Future Scheduled 2022-01-29 65+ PNEUMOCOCCAL [facility] Test 14:07:20 VACCINE (4 - PPSV23 or PCV20) [code = 65+ PNEUMOCOCCAL VACCINE (4 - PPSV23 or PCV20)] Future Scheduled 2022-01-29 INFLUENZA VACCINE Method [facility] Test 14:07:20 [code = INFLUENZA VACCINE] Future Scheduled 2022-01-29 SHINGLES VACCINES (1 Met [facility] Test 14:07:20 of 2) [code = SHINGLES VACCINES (1 of 2)] Future Scheduled 2022-01-29 BREAST CANCER [facility] Test 14:07:20 SCREENING [code = BREAST CANCER SCREENING] Future Scheduled 2022-01-29 COLONOSCOPY SCREENING [facility] Test 14:07:20 [code = COLONOSCOPY SCREENING] Future Scheduled 2022-01-29 HEPATITIS B VACCINES Met [facility] Test 14:07:20 (1 of 3 - Risk 3-dose series) [code = HEPATITIS B VACCINES (1 of 3 - Risk 3-dose series)] Future Scheduled 2022-01-29 COVID-19 VACCINE (3 - [facility] Test 14:07:20 Booster for Pfizer series) [code = COVID-19 VACCINE (3 - Booster for Pfizer series)] Future Scheduled 2022-01-29 65+ PNEUMOCOCCAL [facility] Test 14:07:20 VACCINE (4 - PPSV23 or PCV20) [code = 65+ PNEUMOCOCCAL VACCINE (4 - PPSV23 or PCV20)] Future Scheduled 2022-01-29 INFLUENZA VACCINE Method [facility] Test 14:07:20 [code = INFLUENZA VACCINE] Future Scheduled 2022-01-20 SHINGLES VACCINES (1 Met [facility] Test 06:12:34 of 2) [code = SHINGLES VACCINES (1 of 2)] Future Scheduled 2022-01-20 Screening for [facility] Test 06:12:34 malignant neoplasm of cervix (procedure) [code = [id number]] Future Scheduled 2022-01-20 BREAST CANCER [facility] Test 06:12:34 SCREENING [code = BREAST CANCER SCREENING] Future Scheduled 2022-01-20 COLONOSCOPY SCREENING [facility] Test 06:12:34 [code = COLONOSCOPY SCREENING] Future Scheduled 2022-01-20 HEPATITIS B VACCINES Met [facility] Test 06:12:34 (1 of 3 - Risk 3-dose series) [code = HEPATITIS B VACCINES (1 of 3 - Risk 3-dose series)] Future Scheduled 2022-01-20 COVID-19 VACCINE (3 - [facility] Test 06:12:34 Booster for Pfizer series) [code = COVID-19 VACCINE (3 - Booster for Pfizer series)] Future Scheduled 2022-01-20 65+ PNEUMOCOCCAL [facility] Test 06:12:34 VACCINE (4 - PPSV23 or PCV20) [code = 65+ PNEUMOCOCCAL VACCINE (4 - PPSV23 or PCV20)] Future Scheduled 2022-01-20 INFLUENZA VACCINE Method [facility] Test 06:12:34 [code = INFLUENZA VACCINE] Future Scheduled 2022-01-16 SHINGLES VACCINES (1 Met [facility] Test 12:09:25 of 2) [code = SHINGLES VACCINES (1 of 2)] Future Scheduled 2022-01-16 Screening for [facility] Test 12:09:25 malignant neoplasm of cervix (procedure) [code = [id number]] Future Scheduled 2022-01-16 BREAST CANCER [facility] Test 12:09:25 SCREENING [code = BREAST CANCER SCREENING] Future Scheduled 2022-01-16 COLONOSCOPY SCREENING [facility] Test 12:09:25 [code = COLONOSCOPY SCREENING] Future Scheduled 2022-01-16 HEPATITIS B VACCINES Met [facility] Test 12:09:25 (1 of 3 - Risk 3-dose series) [code = HEPATITIS B VACCINES (1 of 3 - Risk 3-dose series)] Future Scheduled 2022-01-16 COVID-19 VACCINE (3 - [facility] Test 12:09:25 Booster for Pfizer series) [code = COVID-19 VACCINE (3 - Booster for Pfizer series)] Future Scheduled 2022-01-16 65+ PNEUMOCOCCAL [facility] Test 12:09:25 VACCINE (4 - PPSV23 or PCV20) [code = 65+ PNEUMOCOCCAL VACCINE (4 - PPSV23 or PCV20)] Future Scheduled 2022-01-16 INFLUENZA VACCINE Method [facility] Test 12:09:25 [code = INFLUENZA VACCINE] Future Scheduled 2022-01-14 SHINGLES VACCINES (1 Met [facility] Test 04:11:46 of 2) [code = SHINGLES VACCINES (1 of 2)] Future Scheduled 2022-01-14 Screening for [facility] Test 04:11:46 malignant neoplasm of cervix (procedure) [code = [id number]] Future Scheduled 2022-01-14 BREAST CANCER [facility] Test 04:11:46 SCREENING [code = BREAST CANCER SCREENING] Future Scheduled 2022-01-14 COLONOSCOPY SCREENING [facility] Test 04:11:46 [code = COLONOSCOPY SCREENING] Future Scheduled 2022-01-14 HEPATITIS B VACCINES Met [facility] Test 04:11:46 (1 of 3 - Risk 3-dose series) [code = HEPATITIS B VACCINES (1 of 3 - Risk 3-dose series)] Future Scheduled 2022-01-14 COVID-19 VACCINE (3 - [facility] Test 04:11:46 Booster for Pfizer series) [code = COVID-19 VACCINE (3 - Booster for Pfizer series)] Future Scheduled 2022-01-14 65[facility] 04:11:46 VACCINE (4 - PPSV23 or PCV20) [code = 65+ PNEUMOCOCCAL VACCINE (4 - PPSV23 or PCV20)] Future Scheduled 2022-01-14 INFLUENZA VACCINE Method [facility] Test 04:11:46 [code = INFLUENZA VACCINE] Future Scheduled 2021-08-26 Screening for [facility] Test 13:02:23 malignant neoplasm of cervix (procedure) [code = [id number]] Future Scheduled 2021-08-26 BREAST CANCER [facility] Test 13:02:23 SCREENING [code = BREAST CANCER SCREENING] Future Scheduled 2021-08-26 COLONOSCOPY SCREENING [facility] Test 13:02:23 [code = COLONOSCOPY SCREENING] Future Scheduled 2021-08-26 Screening for [facility] Test 13:02:23 malignant neoplasm of lung (procedure) [code = [id number]] Future Scheduled 2021-08-26 SHINGLES VACCINES (#1) [facility] Test 13:02:23 [code = SHINGLES VACCINES (#1)] Future Scheduled 2021-08-26 COVID-19 VACCINE (3 - Me [facility] Test 13:02:23 Pfizer risk 4-dose series) [code = COVID-19 VACCINE (3 - Pfizer risk 4-dose series)] Future Scheduled 2021-08-26 65+ [facility]AL [facility] 13:02:23 VACCINE (4 of 4 - PPSV23) [code = 65+ PNEUMOCOCCAL VACCINE (4 of 4 - PPSV23)] Future Scheduled 2021-08-26 INFLUENZA VACCINE [facility] Test 13:02:23 [code = INFLUENZA VACCINE] Encounters Start End Encounter Admission Attending Care Care Encounter Source Date/Time Date/Time Type Type Clinicians Facility Department ID 2022-02-18 Outpatient [facility] [id number] [place] 14:30:[address] [place] [address] 2021-07-14 Outpatient SADIKOVIC, [facility] [id number] [place] 09:33:51 [facility] 2021-06-02 Outpatient HEMATPOUR, [facility] [id number] [place] 13:58:59 [facility] 2021-04-28 Outpatient [facility] [id number] [place] 11:21:[facility] 2021-03-20 Emergency [facility] [id number] Univers 16:07:40 [facility] 2020-12-12 Outpatient [facility], [facility] [id number] [place] 08:16:46 [facility] 2020-10-31 Outpatient [facility] [id number] [place] 09:44:50 [facility] 2020-09-30 Outpatient [facility], [facility] [id number] [place] 13:16:03 [facility] 2022-09-03 2022-09-03 Outpatient R EAST, [facility] [id number] Univers 11:00:00 11:00:00 SANTIAGO barbosa [facility] 2022-08-24 2022-08-24 Refill Ronald, 1.2.840.6 [id number] Univers 00:00:00 00:00:00 [place] 12534[address]7 [facility]3.229657 Medica l .8 Branch 2022-05-20 2022-05-20 Telephone [facility] 1.2.840.114 [id number] Univers 00:00:00 00:00:00 [facility] [id number] i [id number] [address] 2022-05-10 2022-05-10 Emergency [facility] [id number] Univers 10:30:00 16:31:00 HOME ity [facility] 2022-05-10 2022-05-10 Emergency Byron, TRAUMA 1.2.840.114 [id number] Univers 10:30:00 16:31:00 [facility] [id number] [place] [id number] [facility] [address] 2022-05-10 2022-05-10 Telephone [facility] 1.2.840.114 [id number] Univers 00:00:00 00:00:00 [facility] [id number] i [id number] [address] 2022-05-08 2022-05-08 Emergency X [facility] ERT [id number] Univers 16:18:00 18:42:00 THERESA [facility] 2022-05-08 2022-05-08 [facility] 1.2.840.114 [id number] Univers 16:18:00 18:42:00 Theresa BULLOCK 350.1.13.10 [place] [id number] [address] 2022-05-07 2022-05-07 Telephone [facility] 1.2.840.114 [id number] Univers 00:00:00 00:00:00 [facility] 350.1.13.10 i [place] [id number] [address] 2022-05-06 2022-05-06 Emergency [facility] [id number] Univers 14:13:00 18:19:00 ANETTE barbosa [facility] 2022-05-06 2022-05-06 Emergency [facility] 1.2.373.482 [id number] Univers 14:13:00 18:19:00 Anette BULLOCK 350.1.13.10 ity of [place] 4.2.7.2.686 [facility] [id number] [address] 2022-05-06 2022-05-06 Telephone JOSÉ ANTONIO Cardenas 1.2.840.114 [id number] Univers 00:00:00 00:00:00 [facility] 350.1.13.10 i ty of CLINICS 4.2.7.2.686 [facility] [id number] [address] 2022-04-22 2022-04-22 Emergency [facility] ERT [id number] Univers 13:55:00 17:00:00 PAULETTE [facility] 2022-04-22 2022-04-22 Emergency [facility] [id number] Univers 13:55:00 17:00:00 Paulette BULLOCK 350.1.13.10 i ty [facility] 4.2.7.2.686 [facility] [id number] [address] 2022-04-07 2022-04-07 Outpatient R [facility] [id number] Univers 20:40:00 20:40:00 ATTENDING ity [facility] 2022-04-07 2022-04-07 Telephone Devin 1.2.840.0 [id number] Univers 00:00:00 00:00:00 Robbi Hairston 05818.1.1 i ty of 3.104.2.7 [place] .3.828638 Medica l .8 Branch 2022-03-05 2022-03-05 Productivity Engineer [place] Cardenas 1.2.840.1 [id number] Univers 13:45:00 14:00:00 Visit [facility] 15608.1.1 ity of 3.104.2.7 [place] .3.758996 Medica l .[address] [place] 2022-03-05 2022-03-05 Office [place], [facility] 1.2.376.548 [id number] Univers 13:00:00 13:30:00 Visit Santiago [facility] 350.1.13.10 i ty of CLINICS 4.2.7.2.686 Richi bach [id number] [facility] [address] 2022-03-05 2022-03-05 Outpatient R [facility] [id number] Univers 13:00:00 13:00:00 [facility] 2022-02-26 2022-02-26 Outpatient R [facility] [id number] Univers 08:30:00 08:30:00 [facility] 2022-02-26 2022-02-26 Outpatient R [facility] [id number] Univers 08:30:00 08:30:00 [facility] 2022-02-17 2022-02-17 Transition Stevo, 1.2.840.3 [id number] Univers 00:00:00 00:00:00 of Care Isaias Arredondo 98073.1.1 it y of 3.104.2.7 [place] .3.043979 Medica l .[address] [place] 2022-02-10 2022-02-16 Inpatient X MARIE [facility] FAVIO [id number] Univers 22:59:00 19:27:00 TOMY itcharlie [facility] 2022-02-10 2022-02-16 Hospital Reilly Means 1.2.840.1 [id number] Univers 22:59:00 19:27:00 Encounter Ofe Shields 21530.1.1 ity of [place] 3[place].2.7 [place] .3.025190 Medica [place] .[place] 2022-02-11 2022-02-11 Telephone East, 1.2.840.3 [id number] Univers 00:00:00 00:00:00 [place] 20106.1.1 ity of 3.104.2.7 [place] .3.495945 Medica l .8 Branch 2022-02-10 2022-02-10 Travel 1.2.840.1 [id number] [id number] Univers 00:00:00 00:00:00 69121.1.1 350.1.13.10 ity of 3.104.2.7 4[place]3.698 [place] .3.852505 084.8 Medica l .8 Branch 2022-01-30 2022-01-30 Telephone Ronald, 1.2.840.1 [id number] Univers 00:00:00 00:00:00 [place] 19196.1.1 ity of 3.104.2.7 [place] .3.383424 Medica l .8 Branch 2022-01-06 2022-01-06 Orders Doctor FERMIN 1.2.840.114 [id number] [facility] 00:00:00 00:00:00 Only Unassigned, JACKELINE 350.1.13.10 ity of [facility] 4.2.7.2.686 Yomi as [phone] [address] 2021-12-25 2021-12-25 Orders Doctor FERMIN 1.2.840.114 [id number] [facility] 00:00:00 00:00:00 Only Unassigned, JACKELINE 350.1.13.10 ity of [facility] 4.2.7.2.686 Yomi as [phone] [facility] [address] 2021-12-12 2021-12-13 Emergency X Bill COLES [facility] ERT [id number] Univers 23:53:00 01:52:00 ity of [facility] 2021-12-12 2021-12-13 Emergency Bill Coles [facility] 1.2.840.114 [id number] Univers 23:53:00 01:52:00 Kiersten BULLOCK 350.1.13.10 i ty of MO[place] 4.2.7.2.686 [place] [facility] [phone] [facility] 084 Branch 2021-11-20 2021-11-20 Productivity Engineer [facility] UNIVERSIT 1.2.840.114 9 [id number] Univers 09:45:00 10:00:00 Visit Santiago Cardenas [facility] 350.1.13.10 ity of CL[place]ICS 4.2.[place].2.686 [place] [phone] [facility] 316 Branch 2021-11-20 2021-11-20 Office JOSÉ ANTONIO Cardenas 1.2.920.141 1636 9084 Univers 08:30:00 09:00:00 Visit [facility] 350.1.13.10 i ty of [place] 4.[place].2.[place] [phone] [facility] [address] [place] 2021-11-20 2021-11-20 Outpatient R [facility] [id number] Univers 08:30:00 08:30:00 [facility] 2021-11-20 2021-11-20 Outpatient R [facility] [id number] Univers 08:30:00 08:30:00 [facility] 2021-11-20 2021-11-20 Outpatient R [facility] [id number] Univers 08:30:00 08:30:00 [facility] 2021-11-20 2021-11-20 Outpatient R [facility] [id number] Univers 08:30:00 08:30:00 [facility] 2021-10-24 2021-10-24 Emergency [facility] [id number] Univers 16:27:00 22:26:00 [facility] 2021-10-24 2021-10-24 Emergency X WALKER [facility] ERT [id number] Univers 16:27:00 22:26:00 [facility] 2021-10-24 2021-10-24 Emergency Reilly Means [facility] 1.2.840. 114 [id number] Univers 16:27:00 22:26:00 Charity Mcallister 350.1.13.10 ity of [place] [phone] [facility] [address] [place] 2021-10-23 2021-10-24 Emergency [facility] [id number] Univers 20:22:00 02:57:00 [facility] 2021-10-23 2021-10-24 Emergency [facility] 1.2.765.243 9630 [id number] Univers 20:22:00 02:57:00 Charity Bach [place] 350.1.13.10 ity of [place] 4.2.7.2.686 [place] [facility] [phone] [facility] [address] [place] 2021-09-07 2021-09-07 Outpatient R [facility] [id number] Univers 08:00:00 08:00:00 GADIEL ity o [facility] 2021-09-07 2021-09-07 Outpatient R SELF, [facility] [id number] Univers 08:00:00 08:00:00 GADIEL barbosa o [facility] 2021-08-21 2021-08-21 Outpatient R [facility] [id number] Univers 10:45:00 10:45:00 [facility] 2021-08-21 2021-08-21 Productivity Engineer Santiago Cardenas 1.2.840.1 [id number] Univers 10:45:00 10:45:00 Visit [facility] 32565.1.1 ity of 3.104.2.7 [place] .3.161154 Medica l .8 [place] 2021-08-21 2021-08-21 Office East, 1.2.840.7 [id number] Univers 08:30:00 09:00:00 Visit Santiago 82274.1.1 ity of 3.104.2.7 [place] .3.345109 Medica l .8 [place] 2021-08-21 2021-08-21 Office [place], UNIVERSIT 1.2.977.631 7466 8516 Univers 08:30:00 09:00:00 Visit Santiago [facility] 350.1.13.10 i ty of [facility] 4.2.7.2.686 [facility] [phone] [facility] 089 Branch 2021-08-21 2021-08-21 Outpatient R [facility] [id number] Univers 08:30:00 08:30:00 SANTIAGO ity [facility] 2021-08-21 2021-08-21 Travel 1.2.840.1 1.2.084.187 4262 3865 Univers 00:00:00 00:00:00 51182.1.1 350.1.13.10 ity of 3.104.2.7 4.2.7.3.698 [place] .3.052014 084.8 Medica l .8 [place] 2021-08-14 2021-08-14 Telephone East, 1.2.840.5 [id number] Univers 00:00:00 00:00:00 Santiago 47080.1.1 ity of 3.104.2.7 [place] .3.233375 Medica l .8 [place] 2021-08-13 2021-08-13 Telephone East, 1.2.840.9 [id number] 922 67601 Univers 00:00:00 00:00:00 Santiago 59012.1.1 ity of 3.104.2.7 [place] .3.327101 Medica l .8 [place] 2021-08-11 2021-08-11 Outpatient [facility] [id number] Univers 08:00:00 08:00:00 [facility] 2021-08-05 2021-08-05 In[facility] [id number] [facility] 05:24:00 05:24:00 Mike 31 [facility] 2021-07-20 2021-07-20 Outpatient [facility] [id number] Univers 10:00:00 10:00:00 [facility] 2021-07-14 2021-07-14 Office Pankaj, UTP 6400 1.2.840.114 13 [id number] [place] 08:45:00 09:34:01 Visit Elan ROMERO 350.1.13.58 Health 9.2.7.2.686 [id number] 1 2021-07-09 2021-07-09 Telephone Ap, UTP 6400 1.2.840.114 [id number] [place] 00:00:00 00:00:[address] 350.1.13.58 Health 9.2.7.2.686 [id number] 1 2021-07-09 2021-07-09 Telephone Hematpour, UTP 6400 1.2.840.114 [id number] [place] 00:00:00 00:00:[address] 350.1.13.58 Health 9.2.7.2.686 [id number] 1 2021-07-03 2021-07-03 Outpatient R EAST, [facility] [id number] Univers 08:00:00 08:00:00 SANTIAGO barbosa [facility] 2021-06-17 2021-06-17 Inpatient RAUL Lund, [facility] INTE.02 [id number] [facility] 10:56:00 14:36:00 Mike 47 [facility] 2021-06-15 2021-06-15 Outpatient R SELF, [facility] [id number] Univers 10:15:00 11:07:21 [facility] 2021-06-15 2021-06-15 Outpatient R SELF, [facility] [id number] Univers 10:15:00 10:15:00 [facility] 2021-06-15 2021-06-15 Outpatient R SELF, [facility] [id number] Univers 10:15:00 10:15:00 [facility] 2021-06-15 2021-06-15 Orders Doctor 1.2.840.1 [id number] Univers 00:00:00 00:00:00 Only Unassigned, 03660.1.1 ity of [place] 3.104.2.7 [place] .3.352889 Medica l .8 Branch 2021-06-15 2021-06-15 Travel 1.2.840.1 1.2.513.318 8063 7719 Univers 00:00:00 00:00:00 87721.1.1 350.1.13.10 ity of 3.104.2.7 4.2.7.3.698 [place] .3.755985 084.8 Medica l .8 Branch 2021-06-11 2021-06-11 Refill [facility], UNIVERSIT 1.2.426.356 8342 9185 Univers 00:00:00 00:00:00 [facility] 350.1.13.10 i ty of CL[place] 4.[place] 214.7290064 [facility] 089 Branch 2021-06-11 2021-06-11 Refill East, 1.2.840.4 [id number] 185 Univers 00:00:00 00:00:00 Santiago 97005.1.1 ity of 3.104.2.7 [place] .3.331760 Medica l .8 Branch 2021-06-05 2021-06-05 [facility] R [facility] [id number] Univers 09:00:00 09:00:00 SANTIAGO ity of [facility] 2021-06-02 2021-06-02 Telephone [facility], UNIVERSIT 1.2.840.114 90 [id number] Univers 00:00:00 00:00:00 [facility] 350.1.13.10 i ty of CL[place] 4.2.7.2.686 [place] [phone] [place] 020509 Branch 2021-06-02 2021-06-02 Telephone East, 1.2.840.4 [id number] [id number] Univers 00:00:00 00:00:00 Santiago 16318.1.1 ity of 3.104.2.7 [place] .3.510381 Medica l .8 Branch 2021-05-29 2021-05-29 Telephone East, 1.2.840.6 [id number] 902 08260 Univers 00:00:00 00:00:00 Santiago 00687.1.1 ity of 3.104.2.7 [place] .3.608588 Medica l .8 Branch 2021-05-29 2021-05-29 Telephone East, 1.2.840.1 [id number] 902 95497 Univers 00:00:00 00:00:00 Santiago 20495.1.1 ity of 3.104.2.7 [place] .3.494742 Medica l .8 Branch 2021-05-25 2021-05-25 Outpatient R SELF, [facility] [id number] Univers 08:00:00 08:00:00 GADIEL rodas [facility] 2021-04-29 2021-04-29 Outpatient R LALA, [facility] [id number] Univers 08:00:00 08:00:00 NIKOLAI familia [facility] 2021-04-28 2021-04-28 Telephone Ap [facility] 6400 1.2.840.114 [id number] [place] 00:00:00 00:00:[address] 350.1.13.58 Health 9.2.7.2.686 [id number] 1 2021-04-28 2021-04-28 Telephone Jailyn, 1.2.840.3 [id number] 21 [id number] Methodi 00:00:00 00:00:[address] 3.430.2.7 Hospit a .3.245946 l .8 2021-03-31 2021-03-31 Orders Carol Ann 1.2.840.1 [id number] 21 [id number] Methodi 00:00:00 00:00:00 Only Sarai Lieberman 74044.1.1 979 s t 3.430.2.7 Hospit a .3.294795 l .8 2021-03-30 2021-03-30 Outpatient R SELF, [facility] [id number] Univers 08:45:00 08:45:00 GADIEL rodas [facility] 2021-03-24 2021-03-24 Telephone Jailyn 1.2.840.0 [id number] 21 [id number] Methodi 00:00:00 00:00:[address] 3.430.2.7 Hospit a .3.801499 l .8 2021-02-13 2021-02-13 Telephone Ronald, 1.2.840.2 [id number] 876 [id number] Univers 00:00:00 00:00:00 Santiago 15577.1.1 ity of 3.104.2.7 [place] .3.357813 Medica l .8 Branch 2021-01-28 2021-01-28 Laure REEVES, [facility] [id number] Univers 08:45:00 09:37:00 NIKOLAI ity of [facility] 2021-01-28 2021-01-28 Travel 1.2.840.1 1.2.242.409 7018 9777 Univers 00:00:00 00:00:00 71030.1.1 350.1.13.10 ity of 3.104.2.7 4.2.7.3.698 [place] .3.704024 084.8 Medica l .8 [place] 2021-01-19 2021-01-19 Telephone Prabhu, 1.2.840.1 [id number] 2100 177981 Method 00:00:00 00:00:[address] 3.430.2.7 Hospit a .3.470037 l .8 2021-01-04 2021-01-04 Dmitry Bass, 1.2.840.1 [id number] 79149 696 Univers 00:00:00 00:00:00 (Out) Dagoberto H 59344.1.1 ity of 3.104.2.7 [place] .3.063951 Medica l .8 Branch 2021-01-04 2021-01-04 Letter Shelia, 1.2.840.8 [id number] 696 Univers 00:00:00 00:00:00 (Out) Dagoberto H 12420.1.1 ity of 3.104.2.7 [place] .3.276806 Medica l .8 Branch 2021-01-03 2021-01-03 Letter Shelia, 1.2.840.8 [id number] 24792 790 Univers 00:00:00 00:00:00 (Out) Dagoberto H 69820.1.1 ity of 3.104.2.7 [place] .3.703339 Medica l .8 Branch 2021-01-03 2021-01-03 Letter Shelia, 1.2.840.8 [id number] 790 Univers 00:00:00 00:00:00 (Out) Dagoberto Peterson 22886.1.1 ity of 3.104.2.7 [place] .3.566559 Medica l .8 [place] 2021-01-02 2021-01-02 Outpatient R [facility] [id number] Univers 13:40:00 13:40:00 ity of [facility] 2021-01-02 2021-01-02 Laboratory Cuba Franks 1.2.840.1 [id number] Univers 12:14:13 12:57:34 Only Lab, [place] I 12529.1.1 ity of 3.104.2.7 [place] .3.801528 Medica l .8 [place] 2021-01-02 2021-01-02 Laboratory Cuba Franks 1.2.840.7 [id number] [id number] Univers 12:14:13 12:57:34 Only Lab, Adc Fam Pob I 49901.1.1 ity of 3.104.2.7 [place] .3.957383 Medica l .8 Branch 2021-01-02 2021-01-02 Travel 1.2.840.1 1.2.201.489 0533 2306 Univers 00:00:00 00:00:00 30606.1.1 350.1.13.10 ity of 3.104.2.7 4.2.7.3.698 [place] .3.211902 084.8 Medica l .8 [place] 2021-01-02 2021-01-02 Letter Doctor 1.2.840.4 [id number] 53497 948 Univers 00:00:00 00:00:00 (Out) Unassigned, 89840.1.1 ity of [place] 3.104.2.7 [place] .3.873416 Medica l .8 Branch 2021-01-02 2021-01-02 Letter Doctor 1.2.840.2 [id number] 40667 946 Univers 00:00:00 00:00:00 (Out) Unassigned, 17181.1.1 ity of [place] 3.104.2.7 [place] .3.706761 Medica l .8 Branch 2021-01-02 2021-01-02 Travel 1.2.840.1 1.2.986.516 2083 2306 Univers 00:00:00 00:00:00 73864.1.1 350.1.13.10 ity of 3.104.2.7 4.2.7.3.698 [place] .3.325359 084.8 Medica l .8 [place] 2021-01-02 2021-01-02 Letter Doctor 1.2.840.6 [id number] [id number] 948 Univers 00:00:00 00:00:00 (Out) Unassigned, 43255.1.1 ity of [place] 3.104.2.7 [place] .3.953487 Medica l .8 [place] 2021-01-02 2021-01-02 Letter Doctor 1.2.840.8 [id number] 59669 946 Univers 00:00:00 00:00:00 (Out) Unassigned, 39899.1.1 ity of [place] 3.104.2.7 [place] .3.751661 Medica l .8 [place] 2020-12-22 2020-12-22 Telephone Beltran, 1.2.840.4 [id number] 862 [id number] Univers 00:00:00 00:00:00 Robbi R 48807.1.1 i ty of 3.104.2.7 [place] .3.403968 Medica l .8 [place] 2020-12-22 2020-12-22 Telephone Beltran, 1.2.840.0 [id number] 862 39666 Univers 00:00:00 00:00:00 Eligionda R 07618.1.1 i ty of 3.104.2.7 [place] .3.239444 Medica l .8 [place] 2020-12-12 2020-12-12 Office Hematpour, [facility] 6400 1.2.840.114 12 [id number] [place] 07:42:02 08:18:50 Visit Beverly RUIZ 350.1.13.58 Health 9.2.7.2.686 369.0992589 1 2020-12-12 2020-12-12 Office Hematpour, UTP 6400 1.2.840.114 12 [id number] 07:42:02 08:18:[address] 350.1.13.58 9.2.7.2.686 [id number] 1 2020-12-09 2020-12-09 Telephone Carol Ann, 1.2.840.1 [id number] Methodi 00:00:00 00:00:00 Sarai M. 29141.1.1 316 s t 3.430.2.7 Hospit a .3.553200 l .8 2020-12-08 2020-12-08 [facility], 1.2.840.1 [id number] 2100 684959 Methodi 12:35:54 23:59:00 Encounter Ray 57433.1.[address] 3.430.2.7 Hospit a .3.038446 l .8 2020-12-08 2020-12-08 [facility], 1.2.840.1 [id number] 29999 78285 Methodi 17:25:00 17:30:[address] 3.430.2.7 Hospit a .3.852437 l .8 2020-12-08 2020-12-08 [facility], 1.2.840.1 [id number] 69907 97829 Methodi 10:30:00 11:39:56 Visit Ray 01632.1.[address] 3.430.2.7 Hospit a .3.497460 l .8 2020-12-08 2020-12-08 Travel 1.2.840.1 1.2.075.003 3781 164281 Methodi 00:00:00 00:00:[address] 3.430.2.7 0.2.7.3.698 Ho spita .3.590614 084.8 l .8 2020-12-02 2020-12-02 Productivity Engineer [facility] 1.2.840.114 8 [id number] 10:20:06 10:36:19 Visit [facility] 350.1.13.10 [facility] 4.2.7.2.686 [id number] 316 2020-12-02 2020-12-02 Productivity Engineer Santiago Cardenas 1.2.840.1 [id number] 316 [id number] Univers 10:20:06 10:36:19 Visit [facility] 76794.1.1 ity of 3.104.2.7 [place] .3.306297 Medica l .8 [place] 2020-12-02 2020-12-02 Productivity Engineer Santiago Cardenas 1.2.840.1 [id number] 316 [id number] Univers 10:20:06 10:36:19 Visit [facility] 64370.1.1 ity of 3.104.2.7 [place] .3.079421 Medica l .8 [place] 2020-12-02 2020-12-02 Office Ronald 1.2.840.2 [id number] 85534 528 Univers 08:31:37 09:01:37 Visit Santiago 32890.1.1 ity of 3.104.2.7 [place] .3.057645 Medica l .8 [place] 2020-12-02 2020-12-02 [facility] [id number] Univers 09:00:00 09:00:00 SANTIAGO barbosa of [facility] 2020-11-25 2020-11-25 [facility] 1.2.840.114 [id number] 65 11:06:30 11:58:14 Visit Robbi Hairston [employer] 350.1.13.10 [facility] 4.2.7.2.686 MATERNAL 317.7276136 & CHILD [address] [place] [address] 2020-11-25 2020-11-25 Office Devin 1.2.840.6 [id number] 46932 865 Univers 11:06:30 11:58:14 Visit Robbi Hairston 10919.1.1 i ty of 3.104.2.7 [place] .3.604656 Medica l .8 [place] 2020-11-25 2020-11-25 Office Devin 1.2.840.1 [id number] 12739 865 Univers 11:06:30 11:58:14 Visit Robbi Hairston 12412.1.1 i ty of 3.104.2.7 [place] .3.681290 Medica l .8 [place] 2020-11-25 2020-11-25 Outpatient R [facility] [id number] Univers 11:00:00 11:00:00 ity of [facility] 2020-11-25 2020-11-25 [facility] [place] 1.2.224.646 3650 4592 00:00:00 00:00:00 [facility] 350.1.13.10 [facility] 4.2.7.2.686 [id number] 089 2020-11-25 2020-11-25 [facility] 1.2.687.268 5256 0821 00:00:00 00:00:00 Robbi Hairston [employer] 350.1.13.10 REGIONAL 4.2.7.2.686 MATERNAL 900.6025045 & CHILD [address] [place] [address] 2020-11-25 2020-11-25 Telephone Devin, 1.2.840.8 [id number] 855 72830 Univers 00:00:00 00:00:00 Robbi Hairston 74735.1.1 i ty of 3.104.2.7 [place] .3.109896 Medica l .8 [place] 2020-11-25 2020-11-25 [facility] [place], 1.2.840.3 [id number] 24110 592 Univers 00:00:00 00:00:00 Santiago 84055.1.1 ity of 3.104.2.7 [place] .3.501733 Medica l .8 [place] 2020-11-25 2020-11-25 Travel 1.2.840.1 1.2.325.409 0467 0247 Univers 00:00:00 00:00:00 58973.1.1 350.1.13.10 ity of 3.104.2.7 4.2.7.3.698 [place] .3.964893 084.8 Medica l .8 [place] 2020-11-25 2020-11-25 Orders Doctor 1.2.840.6 [id number] 82999 064 Univers 00:00:00 00:00:00 Only Unassigned, 71666.1.1 ity of [place] 3.104.2.7 [place] .3.636540 Medica l .8 Branch 2020-11-25 2020-11-25 Telephone Devin, 1.2.840.6 [id number] 855 47998 Univers 00:00:00 00:00:00 Robbi Marika 99211.1.1 i ty of 3.104.2.7 [place] .3.315508 Medica l .8 [place] 2020-11-25 2020-11-25 Refill [place], 1.2.840.1 [id number] 88529 592 Univers 00:00:00 00:00:00 Santiago 13970.1.1 ity of 3.104.2.7 [place] .3.366617 Medica l .8 Branch 2020-11-25 2020-11-25 Travel 1.2.840.1 1.2.864.519 3643 0247 Univers 00:00:00 00:00:00 13248.1.1 350.1.13.10 ity of 3.104.2.7 4.2.7.3.698 [place] .3.301252 084.8 Medica l .8 [place] 2020-11-25 2020-11-25 Orders Doctor 1.2.840.9 [id number] 53589 064 Univers 00:00:00 00:00:00 Only Unassigned, 17459.1.1 ity of [place] 3.104.2.7 [place] .3.623391 Medica l .8 [place] 2020-11-14 2020-11-14 Abstract Rodas, 1.2.840.1 [id number] 42768 53827 Methodi 00:00:00 00:00:[address] 3.430.2.7 Hospit a .3.764120 l .8 2020-11-14 2020-11-14 Telephone Rodas, 1.2.840.1 [id number] 2100 324121 Methodi 00:00:00 00:00:[address] 3.430.2.7 Hospit a .3.579519 l .8 2020-11-12 2020-11-12 Outpatient R RONALD [facility] [id number] 323 Univers 08:30:00 08:30:00 SANTIAGO barbosa of [facility] 2020-11-07 2020-11-07 Telephone Agustina Ortiz UTP 6400 1.2.840.11 4 [id number] [place] 00:00:00 00:00:[address] 350.1.13.58 Health 9.2.7.2.686 474.8044869 1 2020-11-07 2020-11-07 Telephone KIMBERLEY Ortiz 6400 1.2.840.114 124 [id number] 00:00:00 00:00:[address] 350.1.13.58 9.2.7.2.686 [id number] 1 2020-10-31 2020-10-31 Office HematpourKIMBERLEY 6400 1.2.840.114 12 [id number] [place] 07:54:00 09:45:[address] 350.1.13.58 Health 9.2.7.2.686 351.2135727 1 2020-10-30 2020-10-30 Abstract Rody Maguire UTP 6400 1.2.840.1 14 [id number] [place] 00:00:00 00:00:[address] 350.1.13.58 Health 9.2.7.2.686 924.9724416 1 2020-10-29 2020-10-29 Refill [place], 1.2.840.2 [id number] 58857 400 Univers 00:00:00 00:00:00 Santiago 77001.1.1 ity of 3.104.2.7 [place] .3.467387 Medica l .8 Branch 2020-10-29 2020-10-29 Refill [place], 1.2.840.5 [id number] 28756 400 Univers 00:00:00 00:00:00 Santiago 10503.1.1 ity of 3.104.2.7 [place] .3.468575 Medica l .8 Branch 2020-10-27 2020-10-27 Telephone Cadea, 1.2.840.4 [id number] 21 [id number] Methodi 00:00:00 00:00:[address] 3.430.2.7 Hospit a .3.284874 l .8 2020-10-24 2020-10-24 Telephone Roads, 1.2.840.1 [id number] 2100 043508 Methodi 00:00:00 00:00:[address] 3.430.2.7 Hospit a .3.698299 l .8 2020-10-22 2020-10-22 Outpatient R SELF, [facility] [id number] 868 Univers 13:00:00 13:00:00 GADIEL vogel [facility] 2020-10-22 2020-10-22 Travel 1.2.840.1 1.2.665.461 9029 3839 Univers 00:00:00 00:00:00 05133.1.1 350.1.13.10 ity of 3.104.2.7 4.2.7.3.698 [place] .3.335339 084.8 Medica l .8 [place] 2020-10-22 2020-10-22 Travel 1.2.840.1 1.2.438.313 6270 3839 Univers 00:00:00 00:00:00 78759.1.1 350.1.13.10 ity of 3.104.2.7 4.2.7.3.698 [place] .3.424298 084.8 Medica l .8 [place] 2020-10-13 2020-10-13 Outpatient R SELF, [facility] [id number] 107 Univers 08:45:00 08:45:00 GADIEL vogel [facility] 2020-10-06 2020-10-12 Telemedici Chihara, 1.2.840.1 [id number] 21 [id number] Methodi 15:30:00 00:08:46 ne Ray 89596.1.[address] 3.430.2.7 Hospit a .3.919628 l .8 2020-09-30 2020-09-30 [facility], 1.2.840.7 [id number] 21 [id number] Methodi 00:00:00 00:00:[address] 3.430.2.7 Hospit a .3.194986 l .8 2020-09-21 2020-09-21 [facility] 1.2.840.1 1.2.841.281 1965 127167 Methodi 00:00:00 00:00:[address] 3.430.2.7 0.2.7.3.698 Ho spita .3.069153 084.8 l .8 2020-09-06 2020-09-06 [facility] 1.2.840.1 [id number] Methodi 17:42:30 23:59:[address] 3.430.2.7 Hospit a .3.398690 l .8 2020-09-06 2020-09-06 [facility], 1.2.840.1 [id number] Methodi 16:50:00 17:41:00 Encounter Ray [address]4535.1.[address] 3.430.2.7 Hospit a .3.639264 l .8 2020-09-05 2020-09-05 [facility], 1.2.840.1 [id number] [id number] Methodi 09:17:00 19:45:00 Encounter Ray [address]645.1.[address] 3.430.2.7 Hospit a .3.824198 l .8 2020-09-05 2020-09-05 [facility], 1.2.840.1 [id number] Methodi 11:30:00 13:15:[address] 3.430.2.7 Hospit a .3.069792 l .8 2020-09-05 2020-09-05 Anesthesia Remigio, 1.2.840.1 [id number] Methodi 11:27:00 12:20:00 Event Kirit 60309.1.1 243 s t V. 3.430.2.7 Hospit a .3.021595 l .8 2020-09-05 2020-09-05 Travel 1.2.840.1 1.2.880.105 [id number] Methodi 00:00:00 00:00:[address] 3.430.2.7 0.2.7.3.698 Ho spita .3.846108 084.8 l .8 2020-09-04 2020-09-04 Telephone [place], 1.2.840.1 [id number] Methodi 00:00:00 00:00:00 Sarai Lieberman 39757.1.1 762 s t 3.430.2.7 Hospit a .3.606777 l .8 2020-09-02 2020-09-02 [facility], 1.2.840.3 [id number] Methodi 00:00:00 00:00:00 Sarai Lieberman 97134.1.1 344 s t 3.430.2.7 Hospit a .3.856278 l .8 2020-08-29 2020-08-30 Bedded [facility] [id number] [facility] 10:20:00 14:10:00 Outpatient r Marty 00 l [facility] 2020-08-29 2020-08-30 Outpatient [facility], [facility] CAR 7500 [facility] 05:20:00 09:10:00 BEVERLY 2020-08-06 2020-08-06 Office Ronald, 1.2.840.8 [id number] [facility] 08:03:23 09:17:49 Visit Santiago 74291.1.1 ity of 3.104.2.7 [place] .3.065823 Medica l .8 [place] 2020-08-06 2020-08-06 Outpatient R RONALD [facility] [id number] [facility] 08:30:00 08:30:00 SANTIAGO barbosa of [facility] 2020-07-14 2020-07-14 Outpatient R SELF, [facility] [id number] Univers 09:30:00 09:30:00 GADIEL rodas [facility] 2020-07-14 2020-07-14 Travel 1.2.840.1 1.2.305.457 [id number] Univers 00:00:00 00:00:00 30449.1.1 350.1.13.10 ity of 3.104.2.7 4[place]7.3.698 [place] .3.303982 084.8 Medica l .8 [place] 2020-07-14 2020-07-14 Orders Doctor 1.2.840.6 [id number] Univers 00:00:00 00:00:00 Only Unassigned, 76358.1.1 ity of [place] 3.104.2.7 [place] .3.517057 Medica l .8 [place] 2020-06-16 2020-06-16 Outpatient R SELF, [facility] [id number] Univers 08:00:00 08:00:00 GADIEL rodas [facility] 2020-06-06 2020-06-06 Telephone Ronald, 1.2.840.6 [id number] Univers 00:00:00 00:00:00 Santiago 98145.1.1 ity of 3.104.2.7 [place] .3.785238 Medica l .8 [place] 2020-06-04 2020-06-04 Productivity Engineer Santiago Cardenas 1.2.840.1 [id number] Univers 09:31:58 09:40:12 Visit [facility] 44635.1.1 ity of 3.104.2.7 [place] .3.101159 Medica l .8 [place] 2020-06-04 2020-06-04 Office JOSÉ ANTONIO Cardenas 1.2.041.636 [id number] Univers 08:13:41 09:28:25 Visit Santiago [facility] 350.1.13.10 i ty of [place] [id number] [facility] 089 [place] 2020-06-04 2020-06-04 Outpatient R EAST, [facility] [id number] Univers 08:30:00 08:30:00 SANTIAGO ity [facility] 2020-06-04 2020-06-04 Orders Doctor 1.2.840.1 [id number] Univers 00:00:00 00:00:00 Only Unassigned, 91912.1.1 ity of [place] 3.104.2.7 [place] .3.814283 Medica l .8 [place] 2020-05-19 2020-05-19 Telephone [place], 1.2.840.8 [id number] Univers 00:00:00 00:00:00 Santiago 63839.1.1 ity of 3.104.2.7 [place] .3.814220 Medica l .8 [place] 2020-04-24 2020-04-24 Telephone [place], 1.2.840.7 [id number] Univers 00:00:00 00:00:00 [place] 68218.1.1 ity of 3.104.2.7 [place] .3.170633 Medica l .8 [place] 2020-04-14 2020-04-14 Outpatient R [facility] [id number] Univers 09:00:00 09:00:00 SANTIAGO ity [facility] 2020-04-14 2020-04-14 Telephone [place], 1.2.840.9 [id number] Univers 00:00:00 00:00:00 Santiago 06136.1.1 ity of 3.104.2.7 [place] .3.135052 [facility] [place] 2020-03-31 2020-03-31 Outpatient R EAST, [facility] [id number] Univers 08:30:00 08:30:00 SANTIAGO maciely [facility] 2020-03-03 2020-03-03 Outpatient R SELF, [facility] [id number] Univers 08:00:00 08:00:00 GADIEL vogel f [facility] 2020-03-03 2020-03-03 Outpatient R SELF, [facility] [id number] Univers 08:00:00 08:00:00 GADIEL barbosa o f [facility] 2020-03-03 2020-03-03 Travel 1.2.840.1 1.2.372.472 [id number] Univers 00:00:00 00:00:00 11691.1.1 350.1.13.10 ity of 3.104.2.7 [place].3.698 [place]3.367723 084.8 [facility] [place] 2020-02-06 2020-02-06 Telephone East, 1.2.840.3 [id number] Univers 00:00:00 00:00:00 [place] 29584.1.1 ity of 3.104.2.7 [place] .3.756156 [facility] [place] 2020-01-26 2020-01-26 Emergency Caridad, 1.2.840.0 [id number] Univers 10:03:00 13:05:00 Cynise 19339.1.1 ity of 3.104.2.7 [place] .3.501245 [facility] [place] 2020-01-26 2020-01-26 Travel 1.2.840.1 1.2.414.630 [id number] Univers 00:00:00 00:00:00 58531.1.1 350.1.13.10 ity of 3.104.2.7 [place].3.698 [place].8828[place] 084.8 [facility] .[facility] [place] 2020-01-25 2020-01-25 Outpatient R [facility] [id number] Univers 08:30:00 08:30:00 SANTIAGO ity of [facility] 2020-01-25 2020-01-25 Telemedici [place], 1.2.840.6 [id number] Univers 07:36:49 08:06:49 ne Visit Santiago 19038.1.1 ity of 3.104.2.7 [place] .3.374072 [facility] [place] 2020-01-16 2020-01-16 Outpatient R [facility] [id number] Univers 08:00:00 08:00:00 SANTIAGO ity [facility] 2020-01-16 2020-01-16 Telephone East, 1.2.840.3 [id number] Univers 00:00:00 00:00:00 Santiago 72710.1.1 ity of 3.104.2.7 [place] .3.462233 [facility] [place] 2020-01-14 2020-01-14 Outpatient R SELF, [facility] [id number] Univers 08:00:00 08:00:00 GADIEL rodas [facility] 2019-12-31 2019-12-31 Outpatient R SELF, [facility] [id number] Univers 08:45:00 08:45:00 GADIELKEI rodas [facility] 2019-10-17 2019-10-17 Outpatient R EAST, [facility] [id number] Univers 08:30:00 08:30:00 SANTIAGO barbosa [facility] 2019-10-12 2019-10-12 Outpatient R EAST, [facility] [id number] Univers 13:00:00 13:00:00 SANTIAGO charlie [facility] 2019-10-12 2019-10-12 Tele[facility] [place], 1.2.840.1 [id number] Univers 07:38:30 08:08:30 ne Visit [place] 26724.1.1 ity of 3.104.2.7 [place] .3.636587 Medica l [address] [place] [address] 2019-10-08 2019-10-08 Outpatient R SELF, [facility] [id number] Univers 10:15:00 10:15:00 GADIEL raheemcharlie lela clark [facility] 2019-10-03 2019-10-03 Case Assman, 1.2.840.1 [id number] Univers 00:00:00 00:00:00 Management Michael Corbin 32655.1.1 i ty of 3.104.2.7 [place] .3.923110 [facility] [place] 2019-09-27 2019-09-27 Telephone East, 1.2.840.8 [id number] Univers 00:00:00 00:00:00 Santiago 12331.1.1 ity of 3.104.2.7 [place] .3.161220 [facility] [place] 2019-09-04 2019-09-04 Refill [place], 1.2.840.9 [id number] Univers 00:00:00 00:00:00 Santiago 33673.1.1 ity of 3.104.2.7 [place] .3.543192 [facility] [place] 2019-07-24 2019-07-24 Outpatient R EAST, [facility] [id number] Univers 08:30:00 08:30:00 SANTIAGO barbosa [facility] 2019-07-17 2019-07-17 Outpatient R EAST, [facility] [id number] Univers 10:00:00 10:00:00 SANTIAGO barbosa [facility] 2019-06-15 2019-06-15 Telephone East, 1.2.840.2 [id number] Univers 00:00:00 00:00:00 Santiago 09005.1.1 ity of 3.104.2.7 [place] .3.065371 Medica l [address] [place] [address] 2019-06-13 2019-06-13 Telephone Team, [facility] 1.2.840.2 [id number] Univers 00:00:00 00:00:00 Health 79725.1.1 [place] .3.331153 [facility] [place] 2019-05-10 2019-05-10 Refill [facility], 1.2.840.7 [id number] Univers 00:00:00 00:00:00 Santiago 55950.1.1 ity of 3.104.2.7 [place] .3.036300 [facility] [place] 2019-05-09 2019-05-09 Refill [facility], 1.2.840.8 [id number] Univers 00:00:00 00:00:00 Santiago 99830.1.1 ity of 3.104.2.7 [place] .3.615641 [facility] [place] 2019-04-30 2019-04-30 Outpatient R SELF, [facility] [id number] Univers 10:15:00 10:33:05 GADIEL barbosa o f [facility] 2019-04-18 2019-04-18 Productivity Engineer [place] Cardenas 1.2.840.1 [id number] Univers 10:00:39 10:44:31 Visit [facility] 71042.1.1 ity of 3.104.2.7 [place] .3.998254 [facility] [place] 2019-04-18 2019-04-18 Outpatient R RONALD [facility] [id number] Univers 10:00:00 10:44:31 SANTIAGO ity of [facility] 2019-04-18 2019-04-18 Office East, 1.2.840.5 [id number] Univers 08:27:44 09:53:27 Visit [place] 57466.1.1 ity of 3.104.2.7 [place] .3.701420 [facility] [place] 2019-04-18 2019-04-18 Orders Doctor 1.2.840.2 [id number] Univers 00:00:00 00:00:00 Only Unassigned, 91157.1.1 ity of [place] 3.104.2.7 [place] .3.585573 [facility] [place] 2019-04-11 2019-04-11 Refill Ronald, 1.2.840.2 [id number] Univers 00:00:00 00:00:00 Santiago 32440.1.1 ity of 3.104.2.7 [place] .3.942985 [facility] [place] 2019-04-09 2019-04-09 Refill Ronald, 1.2.840.5 [id number] Univers 00:00:00 00:00:00 Santiago 21707.1.1 ity of 3.104.2.7 [place] .3.271868 [facility] [place] 2019-04-03 2019-04-03 Telephone Team, [facility] 1.2.840.2 [id number] Univers 00:00:00 00:00:00 Health 41646.1.1 [place].2.[place] .3.440920 [facility] [place] 2019-03-27 2019-03-27 Telephone Self, 1.2.840.8 [id number] Univers 00:00:00 00:00:00 Gadiel 69426.1.1 ity of 3.104.2.7 [place] .3.127324 [facility] 2019-01-17 2019-01-17 Office Ronald, 1.2.840.6 [id number] Univers 07:37:21 10:32:51 Visit Santiago 10410.1.1 ity of 3.104.2.7 [place] .3.050413 [facility] 2019-01-04 2019-01-12 Office Eveline Hansen 1.2.840.3 [id number] Univers 11:19:32 11:08:05 Visit Mariela 26441.1.1 ity of 3.104.2.7 [place] .3.887837 [facility] 2019-01-10 2019-01-10 Telephone Stanislav, 1.2.840.3 [id number] Univers 00:00:00 00:00:00 Eladio Inman 97071.1.1 ity of 3.104.2.7 [place] .3.095951 [facility] 2018-12-18 2018-12-18 Office Alexisryan, 1.2.840.8 [id number] Univers 08:48:45 09:13:43 Visit Leyda 70961.1.1 it y of 3.104.2.7 [place] .3.404147 [facility] [place] 2018-10-30 2018-10-30 Telephone [facility], 1.2.840.0 [id number] Univers 00:00:00 00:00:00 [place] 58132.1.1 ity of 3.104.2.7 [place] .3.420417 [facility] 2018-10-23 2018-10-23 Orders Doctor 1.2.840.4 [id number] Univers 00:00:00 00:00:00 Only Unassigned, 09404.1.1 ity of [place] 3.104.2.7 [place] .3.451243 [facility] 2018-10-23 2018-10-23 Nurse Selvin, 1.2.840.9 [id number] Univers 00:00:00 00:00:00 Triage Stefanie 55358.1.1 ity of 3.104.2.7 [place] .3.037310 [facility] 2018-10-23 2018-10-23 Telephone Self, 1.2.840.2 [id number] Univers 00:00:00 00:00:00 Gadiel 83392.1.1 ity of 3.104.2.7 [place] .3.833225 [facility] 2018-10-20 2018-10-20 Telephone Self, 1.2.840.3 [id number] Univers 00:00:00 00:00:00 Gadiel 51071.1.1 ity of 3.104.2.7 [place] .3.109881 [facility] Results Test Description Test Time Test Comments Results Result Comments Source COMP. METABOLIC PANEL (25383) 2022-05-06 22:42:55 Test Item Value Reference Range Interpretation Comme nts NA (test code = 0625206183) 137 mmol/L 135-145 K (test code = 0196466911) 3.2 mmol/L 3.5-5.0 L CL (test code = 5536337332) 100 mmol/L 98-108 CO2 TOTAL (test code = 6565086511) 23 mmol/L 23-31 AGAP (test code = 9553478347) 2-16 BUN (test code = 5698348603) 41 mg/dL 7-23 H GLUCOSE (test code = 4831724488) 98 mg/dL 70-110 CREATININE (test code = 1.55 mg/dL 0.50-1.04 H 8316032719) TOTAL BILI (test code = 0.8 mg/dL 0.1-1.8 6315547227) CALCIUM (test code = 7572904038) 8.3 mg/dL 8.6-10.6 L T PROTEIN (test code = 9481736541) 6.9 g/dL 6.3-8.2 ALBUMIN (test code = 2103141658) 3.9 g/dL 3.5-5.0 ALK PHOS (test code = 1588196388) 89 U/L 34-122 ALTv (test code = 1742-6) 101 U/L 5-35 H AST(SGOT) (test code = 0385880824) 203 U/L 13-40 H eGFR (test code = 6022404388) mL/min/1.73m2 KYLE (test code = KYLE) Association [...] tests). Lab Interpretation (test code = Abnormal 29274-6) [facility] WITH [id number] 22:33:52 Test Item Value Reference Range Interpretation Comments WBC (test code = See_Comment L [Automated 9454-2) message] The sy stem which generated this result transmitted reference range : 4.30 - 11.10 10*3/?L. The reference range was not used to interpret this result as normal/abnormal . RBC (test code = See_Comment [Automated 839-8) message] The sy stem which [...] RDW-SD (test code = 46.3 fL 39.0-49.9 98878-6) RDW-CV (test code = 13.5 % 12.0-15.5 788-0) PLT (test code = See_Comment L [Automated 777-3) message] The sy stem which generated this result transmitted reference range : 166 - 358 10*3/ ?L. The reference r abbey was not used to interpret this result as normal/abnormal . MPV (test code = 9.5 fL 9.5-12.9 50883-6) NRBC/100 WBC (test See_Comment [Automat ed code = 3852498261) message] The system which generated this result transmitted reference range : 0.0 - 10.0 /100 WBCs. The refer ence range was not u sed to interpret th is result as normal/abnormal . NRBC x10^3 (test code See_Comment [Auto mated = 7884775606) message] The s ystem which generated this result transmitted reference range : 10*3/?L. The reference range was not used to interpret this result as normal/abnormal . GRAN MAT (NEUT) % 58.3 % (test code = 770-8) IMM GRAN % (test code 0.80 % = 6756824970) LYMPH % (test code = 28.1 % 736-9) MONO % (test code = 12.0 % 5905-5) EOS % (test code = 0.5 % 713-8) BASO % (test code = 0.3 % 706-2) GRAN MAT x10^3(ANC) 2.29 10*3/uL 1.88-7.09 (test code = 2886000369) IMM GRAN x10^3 (test 0.03 10*3/uL 0.00-0.06 code = 8689272171) LYMPH x10^3 (test code 1.10 10*3/uL 1.32-3.29 L = 731-0) MONO x10^3 (test code 0.47 10*3/uL 0.33-0.92 = 742-7) EOS x10^3 (test code = 0.03-0.39 L 711-2) BASO x10^3 (test code 0.01-0.07 = 704-7) Lab Interpretation Abnormal (test code = 34717-0) [facility] METABOLIC PANEL (NA, K, CL, CO2, GLUCOSE, BUN, CREATININE, CA)2022-04-22 21:43:42 Test Item Value Reference Range Interpretation Comments NA (test code = 142 mmol/L 135-145 2388239865) K (test code = 3.5 mmol/L 3.5-5.0 7550070613) CL (test code = 106 mmol/L 98-108 3278887850) CO2 TOTAL (test code = 26 mmol/L 23-31 1038615498) AGAP (test code = 2-16 6865786958) BUN (test code = 29 mg/dL 7-23 H 9841714751) GLUCOSE (test code = 84 mg/dL 70-110 4272951400) CREATININE (test code = 1.16 mg/dL 0.50-1.04 H 5030138387) CALCIUM (test code = 8.2 mg/dL 8.6-10.6 L 0755748000) eGFR (test code = mL/min/1.73m2 2322479077) KYLE (test code = KYLE) Association of [...] tests). Lab Interpretation Abnormal (test code = 03456-6) [facility] WITH [id number] 21:33:01 Test Item Value Reference Range Interpretation [...] (test code = 50.7 fL 39.0-49.9 H 82234-7) RDW-CV (test code = 14.6 % 12.0-15.5 788-0) PLT (test code = See_Comment L [Automated 777-3) message] The sy stem which generated this result transmitted reference range : 166 - 358 10*3/ ?L. The reference r abbey was not used to interpret this result as normal/abnormal . MPV (test code = 8.8 fL 9.5-12.9 L 52865-2) NRBC/100 WBC (test See_Comment [Automat ed code = 0516731390) message] The system which generated this result transmitted reference range : 0.0 - 10.0 /100 WBCs. The refer ence range was not u sed to interpret th is result as normal/abnormal . NRBC x10^3 (test code See_Comment [Auto mated = 2487326045) message] The s ystem which generated this result transmitted reference range : 10*3/?L. The reference range was not used to interpret this result as normal/abnormal . GRAN MAT (NEUT) % 70.9 % (test code = 770-8) IMM GRAN % (test code 0.50 % = 2396044351) LYMPH % (test code = 17.4 % 736-9) MONO % (test code = 9.0 % 5905-5) EOS % (test code = 1.7 % 713-8) BASO % (test code = 0.5 % 706-2) GRAN MAT x10^3(ANC) 4.60 10*3/uL 1.88-7.09 (test code = 9434740060) IMM GRAN x10^3 (test 0.03 10*3/uL 0.00-0.06 code = 5124315814) LYMPH x10^3 (test code 1.13 10*3/uL 1.32-3.29 L = 731-0) MONO x10^3 (test code 0.58 10*3/uL 0.33-0.92 = 742-7) EOS x10^3 (test code = 0.11 10*3/uL 0.03-0.39 711-2) BASO x10^3 (test code 0.03 10*3/uL 0.01-0.07 = 704-7) Lab Interpretation Abnormal (test code = 88616-1) [facility] CULTURE [id number] 06:01:07 Test Item Value Reference Range Interpretation Comments Blood Culture-Aerobic No organisms No growth Previo us (test code = 33249-7) isolated prelim inary verified result was Culture [...] Culture-Anaerobic isolated preliminar y (test code = 72141-9) verifi ed result was Culture In Progress [...] CDT Lab Interpretation Normal (test code = 86095-7) [facility] CULTURE [id number] 06:01:07 Test Item Value Reference Range Interpretation Comments Blood Culture-Aerobic No organisms No growth Previo us (test code = 25348-8) isolated prelim inary verified result was Culture [...] Culture-Anaerobic isolated preliminar y (test code = 51435-2) verifi ed result was Culture In Progress [...] CDT Lab Interpretation Normal (test code = 10447-6) [place] [facility] [id number] 06:01:07 Test Item Value Reference Range Interpretation Comments Blood Culture-Aerobic No organisms No growth Previo us (test code = 12400-2) isolated prelim inary verified result was Culture [...] Culture-Anaerobic isolated preliminar y (test code = 35163-9) verifi ed result was Culture In Progress [...] CDT Lab Interpretation Normal (test code = 40922-2) [id number] 10:49:10 Test Item Value Reference Range Interpretation Comments NT-proBNP (test code 2660 pg/mL See_Comment H [Autom ated = 2305747059) message] The system which generated this result transmitted reference range : <=125. The reference range was not used to interpret this result as normal/abnormal . KYLE (test code = KYLE) Biotin has been reported to cause a negative bias, interpret results relative to patient's use of biotin. Lab Interpretation Abnormal (test code = 11011-3) [facility] [id number] 10:49:10 Test Item Value Reference Range Interpretation Comments NT-proBNP (test code 2660 pg/mL See_Comment H [Autom ated = 5219400782) message] The system which generated this result transmitted reference range : <=125. The reference range was not used to interpret this result as normal/abnormal . KYLE (test code = KYLE) Biotin has been reported to cause a negative bias, interpret results relative to patient's use of biotin. Lab Interpretation Abnormal (test code = 87171-1) [facility] METABOLIC PANEL (NA, K, CL, CO2, GLUCOSE, BUN, CREATININE, CA)2022-02-15 10:44:07 Test Item Value Reference Range Interpretation Comments NA (test code = 134 mmol/L 135-145 L 1193823364) K (test code = 3.2 mmol/L 3.5-5 L 3862977799) CL (test code = 98 mmol/L 98-108 1501198355) CO2 TOTAL (test code = 27 mmol/L 23-31 7043454469) AGAP (test code = 2-16 3613062652) BUN (test code = 19 mg/dL 7-23 9361364124) GLUCOSE (test code = 102 mg/dL 70-110 0682892960) CREATININE (test code = 0.95 mg/dL 0.5-1.04 8041649336) CALCIUM (test code = 8.5 mg/dL 8.6-10.6 L 9135894997) eGFR (test code = mL/min/1.73m2 1437157649) KYLE (test code = KYLE) Association of [...] tests). Lab Interpretation Abnormal (test code = 53588-6) [place] [facility] 10:44:07 Test Item Value Reference Range Interpretation Comments MAGNESIUM (test code = 3639999308) 1.8 mg/dL 1.7-2.4 Lab Interpretation (test code = Normal 23939-4) [facility] Test Item Value Reference Range Interpretation Comments MAGNESIUM (test code = 3076283751) 1.8 mg/dL 1.7-2.4 Lab Interpretation (test code = Normal 82736-1) [facility] (NA, K, CL, CO2, GLUCOSE, BUN, CREATININE, CA)2022-02-15 10:44:07 Test Item Value Reference Range Interpretation Comments NA (test code = 134 mmol/L 135-145 L 4508553054) K (test code = 3.2 mmol/L 3.5-5.0 L 7139002682) CL (test code = 98 mmol/L 98-108 0750861540) CO2 TOTAL (test code = 27 mmol/L 23-31 2242590269) AGAP (test code = 2-16 8746423050) BUN (test code = 19 mg/dL 7-23 3061135863) GLUCOSE (test code = 102 mg/dL 70-110 5579734013) CREATININE (test code = 0.95 mg/dL 0.50-1.04 2305928343) CALCIUM (test code = 8.5 mg/dL 8.6-10.6 L 6969974405) eGFR (test code = mL/min/1.73m2 6597103934) KYLE (test code = KYLE) Association of [...] tests). Lab Interpretation Abnormal (test code = 77317-5) [facility] WITH [id number] 10:12:06 Test Item Value Reference Range Interpretation [...] RDW-SD (test code = 47.8 fL 39-49.9 84851-7) RDW-CV (test code = 15.2 % 12-15.5 788-0) PLT (test code = See_Comment L [Automated 777-3) message] The sy stem which generated this result transmitted reference range : 166 - 358 10*3/ ?L. The reference r abbey was not used to interpret this result as normal/abnormal . MPV (test code = 8.9 fL 9.5-12.9 L 86088-1) NRBC/100 WBC (test See_Comment [Automat ed code = 0390464686) message] The system which generated this result transmitted reference range : 0.0 - 10.0 /100 WBCs. The refer ence range was not u sed to interpret th is result as normal/abnormal . NRBC x10^3 (test code See_Comment [Auto mated = 5257999406) message] The s ystem which generated this result transmitted reference range : 10*3/?L. The reference range was not used to interpret this result as normal/abnormal . GRAN MAT (NEUT) % 65.9 % (test code = 770-8) IMM GRAN % (test code 0.30 % = 9417079018) LYMPH % (test code = 21.0 % 736-9) MONO % (test code = 10.1 % 5905-5) EOS % (test code = 2.4 % 713-8) BASO % (test code = 0.3 % 706-2) GRAN MAT x10^3(ANC) 2.49 10*3/uL 1.88-7.09 (test code = 5834680782) IMM GRAN x10^3 (test 0-0.06 code = 0880656189) LYMPH x10^3 (test code 0.79 10*3/uL 1.32-3.29 L = 731-0) MONO x10^3 (test code 0.38 10*3/uL 0.33-0.92 = 742-7) EOS x10^3 (test code = 0.09 10*3/uL 0.03-0.39 711-2) BASO x10^3 (test code 0.01-0.07 = 704-7) Lab Interpretation Abnormal (test code = 43476-3) [facility] WITH [id number] 10:12:06 Test Item Value Reference Range Interpretation [...] RDW-SD (test code = 47.8 fL 39.0-49.9 12349-3) RDW-CV (test code = 15.2 % 12.0-15.5 788-0) PLT (test code = See_Comment L [Automated 777-3) message] The sy stem which generated this result transmitted reference range : 166 - 358 10*3/ ?L. The reference r abbey was not used to interpret this result as normal/abnormal . MPV (test code = 8.9 fL 9.5-12.9 L 39244-9) NRBC/100 WBC (test See_Comment [Automat ed code = 3969776204) message] The system which generated this result transmitted reference range : 0.0 - 10.0 /100 WBCs. The refer ence range was not u sed to interpret th is result as normal/abnormal . NRBC x10^3 (test code See_Comment [Auto mated = 8817525313) message] The s ystem which generated this result transmitted reference range : 10*3/?L. The reference range was not used to interpret this result as normal/abnormal . GRAN MAT (NEUT) % 65.9 % (test code = 770-8) IMM GRAN % (test code 0.30 % = 8359813195) LYMPH % (test code = 21.0 % 736-9) MONO % (test code = 10.1 % 5905-5) EOS % (test code = 2.4 % 713-8) BASO % (test code = 0.3 % 706-2) GRAN MAT x10^3(ANC) 2.49 10*3/uL 1.88-7.09 (test code = 3912398556) IMM GRAN x10^3 (test 0.00-0.06 code = 4229676622) LYMPH x10^3 (test code 0.79 10*3/uL 1.32-3.29 L = 731-0) MONO x10^3 (test code 0.38 10*3/uL 0.33-0.92 = 742-7) EOS x10^3 (test code = 0.09 10*3/uL 0.03-0.39 711-2) BASO x10^3 (test code 0.01-0.07 = 704-7) Lab Interpretation Abnormal (test code = 89606-6) [facility] WITH [id number] 11:18:28 Test Item Value Reference Range Interpretation Comments WBC (test code = See_Comment L [Automated 4490-2) message] The sy stem which [...] RDW-SD (test code = 49.5 fL 39-49.9 98664-9) RDW-CV (test code = 15.5 % 12-15.5 788-0) PLT (test code = See_Comment L [Automated 777-3) message] The sy stem which generated this result transmitted reference range : 166 - 358 10*3/ ?L. The reference r abbey was not used to interpret this result as normal/abnormal . MPV (test code = 11.4 fL 9.5-12.9 07333-9) IPF % (test code = 8.7 % 1.3-7.7 H Platelet count 5125439948) measured by fluorescence method. NRBC/100 WBC (test See_Comment [Automat ed code = 4382149150) message] The system which generated this result transmitted reference range : 0.0 - 10.0 /100 WBCs. The refer ence range was not u sed to interpret th is result as normal/abnormal . NRBC x10^3 (test code See_Comment [Auto mated = 4186765464) message] The s ystem which generated this result transmitted reference range : 10*3/?L. The reference range was not used to interpret this result as normal/abnormal . GRAN MAT (NEUT) % 62.0 % (test code = 770-8) IMM GRAN % (test code 0.80 % = 5357145674) LYMPH % (test code = 22.2 % 736-9) MONO % (test code = 9.6 % 5905-5) EOS % (test code = 5.1 % 713-8) BASO % (test code = 0.3 % 706-2) GRAN MAT x10^3(ANC) 2.21 10*3/uL 1.88-7.09 (test code = 8442998069) IMM GRAN x10^3 (test 0.03 10*3/uL 0-0.06 code = 6684123965) LYMPH x10^3 (test code 0.79 10*3/uL 1.32-3.29 L = 731-0) MONO x10^3 (test code 0.34 10*3/uL 0.33-0.92 = 742-7) EOS x10^3 (test code = 0.18 10*3/uL 0.03-0.39 711-2) BASO x10^3 (test code 0.01-0.07 = 704-7) POLYCHROMASIA (test 2+ See_Comment [Automa arpit code = 97237-5) message] The system which generated this result [...] . Lab Interpretation Abnormal (test code = 62402-4) [facility] METABOLIC PANEL (NA, K, CL, CO2, GLUCOSE, BUN, CREATININE, CA)2022-02-13 10:39:07 Test Item Value Reference Range Interpretation Comments NA (test code = 136 mmol/L 135-145 8924956419) K (test code = 4.1 mmol/L 3.5-5 1050330189) CL (test code = 102 mmol/L 98-108 2595383268) CO2 TOTAL (test code = 27 mmol/L 23-31 8989394453) AGAP (test code = 2-16 0651653674) BUN (test code = 22 mg/dL 7-23 8471202448) GLUCOSE (test code = 94 mg/dL 70-110 6119044627) CREATININE (test code = 0.94 mg/dL 0.5-1.04 9865648130) CALCIUM (test code = 8.1 mg/dL 8.6-10.6 L 5588329619) eGFR (test code = mL/min/1.73m2 5807127592) KYLE (test code = KYLE) Association of [...] tests). Lab Interpretation Abnormal (test code = 72542-9) [facility]10 Test Item Value Reference Range Interpretation Comments Height (test code = in 8931013589) Weight (test code = lbs 6578188324) Systolic BP (test code mmHg = 8669203225) Diastolic BP (test code mmHg = 6584559455) Heart Rate (test code = bpm 1154603732) BSA (test code = 1.85 m2 0199203953) IVS (test code = 1.22 cm 0203065765) Interventricular Septum 1.22 cm Diastolic Thickness by 2D (test code = 8118347) LVIDD (test code = 5.00 cm 6115611379) Left Ventricular End 117.9 mL Diastolic Volume by Teichholz Method (test code = 7186935) LVPWD (test code = 1.22 cm 3513405421) PW (test code = 1.22 cm 0.6-1.1 3033266270) EF(Teich) (test code = 74.60 % 7942142013) LVIDS (test code = 2.80 cm 4722098625) Left Ventricular End 29.9 mL Systolic Volume by Teichholz Method (test code = 6942699) FS (test code = 44 % 2562288258) EF - 2D (test code = 74.60 % 89943623) LVOT diameter (test 2.16 cm code = 0344174183) LVOT area (test code = 3.70 cm2 6745787617) Ao root diam (test code 3.40 cm = 2359174830) Aortic root (test code 3.4 cm = 7717851776) Ao root annulus (test 3.4 cm code = 7879863832) LA size (test code = 3.4 cm 1403452093) TR Peak Spencer (test code 330.0 cm/s = 4313652615) Triscuspid Valve mmHg Regurgitation Peak Gradient (test code = 6318682152) PV REGURGITATION PEAK mmHg GRADIENT (test code = 7288275614) PI dec slope (test code 137.20 cm/s2 = 2310597840) LAV(MOD-sp4) (test code 102.90 mL = 5270766650) MV Peak E Spencer (test 84.1 cm/s code = 6073772650) MV Peak A Spnecer (test 40.1 cm/s code = 8908258926) E/A ratio (test code = ratio 5560758949) MV valve area p 1/2 3.70 cm2 method (test code = 1288086552) MV dec slope (test code 413.00 cm/s2 = 3594624186) MV P1/2t max spencer (test 83.70 cm/s code = 0841710784) MV Prop V (test code = 41.80 cm/s 9427147604) Tapse (test code = 1.83 cm 8614912502) LVOT stroke volume 96.90 cm3 (test code = 2911970124) LVOT peak spencer (test 125.5 cm/s code = 2904296485) LVOT mn grad (test code mmHg = 1044398034) AV LVOT peak gradient mmHg (test code = 4484770150) LVOT peak VTI (test 26.4 cm code = 7946691389) LV V1 mean (test code = 78.10 cm/s 7172494473) Aortic valve mean 103.7 cm/s velocity (test code = 5984026250) Ao peak spencer (test code 165.6 cm/s = 8304902326) Ao VTI (test code = 37.2 cm 7745399363) AV area by cont VTI 2.6 cm2 (test code = 3599139603) AV area peak spencer (test 2.8 cm2 code = 6396830423) Ao max PG (test code = 11.00 mm[Hg] 7687108803) AV peak gradient (test mmHg code = 3884542321) AV valve area (test 2.60 cm2 code = 2341832485) AV mean gradient (test mmHg code = 8262970043) LA Volume Index (BP) 55.2 mL/m2 (test code = 9813325898) LA volume (BP) (test 102.1 mL code = 3728280423) LAV(MOD-sp2) (test code 86.10 mL = 2273267521) A2C EF (test code = 61.20 % 6905337473) EF(sp2-el) (test code = 61.60 % 2290735553) SV(MOD-sp2) (test code 47.10 mL = 5553790865) LV Diastolic Volume 70.7 mL (BP) (test code = 1412046397) A4C EF (test code = 53.00 % 0446688779) EF(MOD-bp) (test code = 56.70 % 1024960163) EF(sp4-el) (test code = 53.90 % 4983177266) LV Systolic Volume (BP) 30.6 mL (test code = 4282650140) SV(MOD-bp) (test code = 40.10 mL 6547891541) SV(MOD-sp4) (test code 32.40 mL = 2482700366) SV(sp4-el) (test code = 33.10 mL 0249917037) EF (test code = 2485604595) Left Ventricular Stroke 40.1 mL Volume by 2-D Biplane-MOD (test code = 2193210) LV Diastolic Volume 38.2 mL/m2 Index (BP) (test code = 4127874756) LV Systolic Volume 16.5 mL/m2 Index (BP) (test code = 9532096244) Radiology Study observation (narrative) (test code = 01210-8) KYLE (test code = KYLE) ?Left?Ventricle: Left [...] 1.00The left ventricular wall motion is normal. [id number] 05:45:01 Test Item Value Reference Interpretation Comments Range TROPONIN I (test See_Comment [Automated code = 1293248073) message] The system which generated this result [...] biotin. Lab Interpretation Normal (test code = 85974-0) [facility] HLF-[id number] 05:41:40 Test Item Value Reference Range Interpretation Comments NT-proBNP (test code 4250 pg/mL See_Comment H [Autom ated = 9191255848) message] The system which generated this result transmitted reference range : <=125. The reference range was not used to interpret this result as normal/abnormal . KYLE (test code = KYLE) Biotin has been reported to cause a negative bias, interpret results relative to patient's use of biotin. Lab Interpretation Abnormal (test code = 50444-7) [facility]ACT[facility] THRMPLAS [id number] 05:35:21 Test Item Value Reference Range Interpretation Comments APTT Patient (test See_Comment [Automat ed code = 3173-2) message] The system which generated this result transmitted reference range : 23 - 38 Seconds . The reference range was not used to interpr et this result as normal/abnormal . KYLE (test code = KYLE) The [facility] patient population mean normal value for aPTT is 30 seconds. Lab Interpretation Normal (test code = 57460-8) [facility] [id number] 05:35:21 Test Item Value Reference Range Interpretation Comments APTT Patient (test See_Comment [Automat ed code = 3173-2) message] The system which generated this result transmitted reference range : 23 - 38 Seconds . The reference range was not used to interpr et this result as normal/abnormal . KYLE (test code = KYLE) The [facility] patient population mean normal value for aPTT is 30 seconds. Lab Interpretation Normal (test code = 09833-2) [facility] CenterPROTHROMBIN TIME / [id number] 05:33:21 Test Item Value Reference Range Interpretation [...] tions. Lab Interpretation (test Normal code = 77293-7) [facility] CenterCOMP. METABOLIC PANEL (31358)2022-02-11 05:33:21 Test Item Value Reference Range Interpretation Comments NA (test code = 137 mmol/L 135-145 2339729546) K (test code = 4.3 mmol/L 3.5-5 5354016423) CL (test code = 103 mmol/L 98-108 4079410439) CO2 TOTAL (test code = 25 mmol/L 23-31 6927803866) AGAP (test code = 2-16 5510120330) BUN (test code = 19 mg/dL 7-23 3097634088) GLUCOSE (test code = 120 mg/dL 70-110 H 5449227270) CREATININE (test code = 1.15 mg/dL 0.5-1.04 H 4355504782) TOTAL BILI (test code = 0.9 mg/dL 0.1-1.5 4261152454) CALCIUM (test code = 8.9 mg/dL 8.6-10.6 1008397654) T PROTEIN (test code = 6.6 g/dL 6.3-8.2 5163778759) ALBUMIN (test code = 4.0 g/dL 3.5-5 7304073370) ALK PHOS (test code = 73 U/L 34-122 9144507397) ALTv (test code = 18 U/L 5-35 1742-6) AST(SGOT) (test code = 31 U/L 13-40 1513706269) eGFR (test code = mL/min/1.73m2 7363190362) KYLE (test code = KYLE) Association of [...] tests). Lab Interpretation Abnormal (test code = 37211-9) [facility]. METABOLIC PANEL (56030)2022-02-11 05:33:21 Test Item Value Reference Range Interpretation Comments NA (test code = 137 mmol/L 135-145 2717899945) K (test code = 4.3 mmol/L 3.5-5.0 4705824121) CL (test code = 103 mmol/L 98-108 0899502777) CO2 TOTAL (test code = 25 mmol/L 23-31 6510310249) AGAP (test code = 2-16 4649472464) BUN (test code = 19 mg/dL 7-23 0857243255) GLUCOSE (test code = 120 mg/dL 70-110 H 2741304236) CREATININE (test code = 1.15 mg/dL 0.50-1.04 H 6729980245) TOTAL BILI (test code = 0.9 mg/dL 0.1-1.1 2407176102) CALCIUM (test code = 8.9 mg/dL 8.6-10.6 9993791820) T PROTEIN (test code = 6.6 g/dL 6.3-8.2 7902775811) ALBUMIN (test code = 4.0 g/dL 3.5-5.0 5610749878) ALK PHOS (test code = 73 U/L 34-122 6122987490) ALTv (test code = 18 U/L 5-35 1742-6) AST(SGOT) (test code = 31 U/L 13-40 7165900063) eGFR (test code = mL/min/1.73m2 0925072239) KYLE (test code = KYLE) Association of [...] tests). Lab Interpretation Abnormal (test code = 73183-0) [facility] CenterPROTHROMBIN TIME / [id number] 05:33:21 Test Item Value Reference Range Interpretation [...] tions. Lab Interpretation (test Normal code = 43466-6) [facility] CenterCBC WITH [id number] 05:14:37 Test Item Value Reference Range Interpretation Comments WBC (test code = See_Comment [Automated 3290-2) message] The sy stem which generated this result transmitted reference range : 4.30 - 11.10 10*3/?L. The reference range was not used to interpret this result as normal/abnormal . RBC (test code = See_Comment L [Automated 619-8) message] The sy stem which generated this [...] RDW-SD (test code = 47.9 fL 39-49.9 42509-8) RDW-CV (test code = 14.9 % 12-15.5 788-0) PLT (test code = See_Comment L [Automated 777-3) message] The sy stem which generated this result transmitted reference range : 166 - 358 10*3/ ?L. The reference r abbey was not used to interpret this result as normal/abnormal . MPV (test code = 9.1 fL 9.5-12.9 L 04879-0) NRBC/100 WBC (test See_Comment [Automat ed code = 7477703381) message] The system which generated this result transmitted reference range : 0.0 - 10.0 /100 WBCs. The refer ence range was not u sed to interpret th is result as normal/abnormal . NRBC x10^3 (test code See_Comment [Auto mated = 7914279463) message] The s ystem which generated this result transmitted reference range : 10*3/?L. The reference range was not used to interpret this result as normal/abnormal . GRAN MAT (NEUT) % 78.5 % (test code = 770-8) IMM GRAN % (test code 0.20 % = 1683494208) LYMPH % (test code = 11.6 % 736-9) MONO % (test code = 8.4 % 5905-5) EOS % (test code = 1.1 % 713-8) BASO % (test code = 0.2 % 706-2) GRAN MAT x10^3(ANC) 3.45 10*3/uL 1.88-7.09 (test code = 8506073669) IMM GRAN x10^3 (test 0-0.06 code = 0665449463) LYMPH x10^3 (test code 0.51 10*3/uL 1.32-3.29 L = 731-0) MONO x10^3 (test code 0.37 10*3/uL 0.33-0.92 = 742-7) EOS x10^3 (test code = 0.05 10*3/uL 0.03-0.39 711-2) BASO x10^3 (test code 0.01-0.07 = 704-7) Lab Interpretation Abnormal (test code = 91383-8) [facility] Coronavirus 2019 Izeymnc0405-19-63 18:08:00 Test Item Value Reference Range Interpretation [...] det ection of nucleic acids f rom plrDOII-FqD-5 v irus and diagnosis of SA RS-CoV-2 virusinfection. It is an Emergency Use Authorization ( EUA) testauthorized by the U.S. FDA. BASIC METABOLIC [id number] 09:37:00 Test Item Value Reference Range Interpretation [...] = 9.0 mg/dL 8.0-10.5 N CA) PROTHROMBIN KVLW0386-43-26 09:32:00 Test Item Value Reference Range Interpretation [...] (to prevent recurrent infar ct). CBC W/AUTO ZAOT3883-13-31 09:32:00 Test Item Value Reference Range Interpretation [...] (test code NO = MDIFF) ECG 12 llqj6620-61-48 15:14:00 Test Item Value Reference Range Interpretation Comments Lab Interpretation (test code = Normal 74671-9) [place] PasaapWQH-ULOJF6329-21-26 08:47:00 Test Item Value Reference Range Interpretation Comments ACT-ISTAT (test code 249 SEC 74-137 H Perform ed by certified = ACTI) simplex operator at [facility] - XR CHEST 1 [id number] 00:00:00 [facility] 1955 Sex: F FAX: Carmenza Kelly [phone] [place]: St: ADM FAX: Mike Scales MD [phone] FAX: Bahman Chopra [phone] Name: LIO WATTS [facility] : 1955 Age/S: 66/F [address] [place] [address] Unit #: [id number] Loc: [place] [address] Phys: Bahman Chopra [facility] Acct: [id number] Dis Date: Status: ADM IN PHONE #: [phone] Exam Date: 06/17/2021 1320 FAX #: [phone] Reason: WATCHMAN EXAMS: CPT CODE: [id number] XR CHEST 1 V 84256 PROCEDURE INFORMATION: Exam: XR Chest Exam date [...] failure/volume loading. 2. Subsegmental atelectasis bilateral. at 1334 Reported and signed by: Lambert Vega M.D. CC: Lele Rahman DO; Mike Lnud MD; Bahman Chopra Technologist: RT Taylor(R) Trnscrd Date/Time/By: 06/17/2021 (4127) : By: IselaKWL Orig Print D/T: S: 06/17/2021 (7368) PAGE 1 Signed ReportCOVID 19 Asymptomatic IH [id number] 12:29:00 Test Item Value Reference Range Interpretation [...] high or waivedcomplexit y tests. BASIC METABOLIC [id number] 11:37:00 Test Item Value Reference Range Interpretation [...] code = 9.0 mg/dL 8.0-10.5 N CA) LHDMUVNMJQ3598-78-96 11:37:00 Test Item Value Reference Range Interpretation Comments PREALBUMIN (test code = PREALB) 24.3 mg/dL 16.0-40.0 N PROTHROMBIN QQJP1019-77-85 11:03:00 Test Item Value Reference Range Interpretation [...] (to prevent recurrent infar ct). CBC W/AUTO YVUC9336-15-90 10:59:00 Test Item Value Reference Range Interpretation [...] 3/uL 0.0-0.1 N NRBC#) - CHEST 2 [id number] 00:00:00 [facility] 1955 Sex: F FAX: Carmenza Kelly DO [phone] [place]: St: PRE FAX: Mike Scales MD [phone] Name: LIO WATTS [facility] : 1955 Age/S: 66/F [address] [place] [address] Unit #: [id number] Loc: [place], [place] [address]Nfaq: Mike Lund MD Acct: [id number] Dis Date: Status: PRE SDC PHONE #: [phone] Exam Date: 06/16/2021 1120 FAX #: [phone] Reason: PREOP EXAMS: CPT CODE: [id number] XR CHEST 2 V 78927 PROCEDURE INFORMATION: Exam: XR Chest Exam date [...] By: [email or web address] Orig Print D/T: S: 06/16/2021 (3874) PAGE 1 Signed ReportGastrointestinal spoiv7263-33-43 04:35:05 Test Item Value Reference Interpretation Comments [...] Rotavirus PCR (test Not Detected code = 9749719) Salmonella PCR (test Not Detected code = [...] Detected (test code = 7124) [facility] dvayzrw7339-30-34 19:30:47 Test Item Value Reference Range Interpretation Comments Case number (test [id number] code = 9519486) Surgical pathology See link below for PDF report (test code = Lab Report 2255) Result status (test This is Supplemental code = 4952154) Report for [id number] [facility]2021-04-09 16:31:00 Test Item Value Reference Range Interpretation Comments POC Activated Clotting Time (test code 153 s = POC Activated Clotting Time) [facility]KeuwovyUSGHMIXEYL3456-02-38 16:31:00 Test Item Value Reference Range Interpretation Comments POC Activated Clotting Time (test code 153 s = POC Activated Clotting Time) [facility] HospitalVaxeljwZGWHPKAFKG3130-04-17 16:31:00 Test Item Value Reference Range Interpretation Comments POC Activated Clotting Time (test code 153 s = POC Activated Clotting Time) [facility] HospitalWamnjjgSYSPTRBPRL5599-37-62 16:31:00 Test Item Value Reference Range Interpretation Comments POC Activated Clotting Time (test code 153 s = POC Activated Clotting Time) [facility] HospitalHlgkymeKQGXIOLRGV2615-44-26 16:31:00 Test Item Value Reference Range Interpretation Comments POC Activated Clotting Time (test code 153 s = POC Activated Clotting Time) [facility] HospitalVtclpsbSLKKJVWXEQ2647-12-47 16:31:00 Test Item Value Reference Range Interpretation Comments POC Activated Clotting Time (test code 153 s = POC Activated Clotting Time) [facility] HospitalYggvuvsAZOSRCSMIU2114-31-62 16:31:00 Test Item Value Reference Range Interpretation Comments POC Activated Clotting Time (test code 153 s = POC Activated Clotting Time) [place] 927831-04-09 14:37:00 Test Item Value Reference Range Interpretation Comments POC Activated Clotting Time (test code 454 s = POC Activated Clotting Time) [place] 927831-04-09 14:37:00 Test Item Value Reference Range Interpretation Comments POC Activated Clotting Time (test code 454 s = POC Activated Clotting Time) [facility] HospitalIxutglkWEVSOQMWBD8197-84-13 14:37:00 Test Item Value Reference Range Interpretation Comments POC Activated Clotting Time (test code 454 s = POC Activated Clotting Time) [facility] HospitalUbrrdimVYCAYXUSSW2063-56-79 14:37:00 Test Item Value Reference Range Interpretation Comments POC Activated Clotting Time (test code 454 s = POC Activated Clotting Time) [facility] HospitalKlhfrmtIVBNZJOAVC3802-51-44 14:37:00 Test Item Value Reference Range Interpretation Comments POC Activated Clotting Time (test code 454 s = POC Activated Clotting Time) [facility] HospitalNxkvvheEVRSDHJANX5319-84-85 14:37:00 Test Item Value Reference Range Interpretation Comments POC Activated Clotting Time (test code 454 s = POC Activated Clotting Time) [facility] HospitalRkjbqkrHLARXEGRHF1155-84-16 14:37:00 Test Item Value Reference Range Interpretation Comments POC Activated Clotting Time (test code 454 s = POC Activated Clotting Time) [facility] HospitalFerykioISJZNRPCXR3984-02-02 14:13:00 Test Item Value Reference Range Interpretation Comments POC Activated Clotting Time (test code 354 s = POC Activated Clotting Time) [facility] HospitalZwvdbmzVCOLETEUIB8792-07-89 14:13:00 Test Item Value Reference Range Interpretation Comments POC Activated Clotting Time (test code 354 s = POC Activated Clotting Time) [facility] HospitalUtxyxohDRLGFKQUYA5429-25-05 14:13:00 Test Item Value Reference Range Interpretation Comments POC Activated Clotting Time (test code 354 s = POC Activated Clotting Time) [facility] HospitalKmjhbgcQOYAGAVNLX2217-00-71 14:13:00 Test Item Value Reference Range Interpretation Comments POC Activated Clotting Time (test code 354 s = POC Activated Clotting Time) [place] 927831-04-09 14:13:00 Test Item Value Reference Range Interpretation Comments POC Activated Clotting Time (test code 354 s = POC Activated Clotting Time) [facility] HospitalNaigyhhFFEYCRKQPX3107-00-12 14:13:00 Test Item Value Reference Range Interpretation Comments POC Activated Clotting Time (test code 354 s = POC Activated Clotting Time) [facility] BtirpecNPCWNSDSPJ1266-73-29 14:13:00 Test Item Value Reference Range Interpretation Comments POC Activated Clotting Time (test code 354 s = POC Activated Clotting Time) [facility] KRIXDTD4056-34-09 10:37:00Negative (08/29/20 5:37 AM) [facility] REWJB7906-08-94 10:37:17090Cxzqatbc HermannCHEM PANEL 2020-08-29 10:37:0028[facility]annCHEM WVALD3643-51-05 10:37:001.01[facility]annCHEM DRLKN0497-03-94 10:37:69529Gmjnbhua HermannCHEM HPVRV2277-29-69 10:37:003.8[facility]annCHEM GQDSP0334-65-98 10:37:07284Gcmwjvij HermannCHEM EIDYO1681-12-12 10:37:0028[facility]annCHEM XHUAK0021-45-80 10:37:009.8 [facility]annCHE[facility] TFGIJ1548-87-39 10:37:0011.8[facility] HermannCHEM PANEL 2020-08-29 10:37:0059[facility] HermannCHEM SKOYW1796-08-32 10:37:002.9[facility] EkbbzraIHHWHZXRJJ7820-51-20 10:37:006.8[facility] BjtnxxdLVQXJIBRAY6178-32-31 10:37:004.47[facility] FsbardtGRDCLGXDEV3123-80-65 10:37:0010.6[facility] QGIUGPTHAT1495-70-19 10:37:0034.0[facility] OnytverZQHKAITBYU1331-78-70 10:37:00 76.1[facility] ZchhmjvGRLBFCCILL5567-03-83 10:37:00 Test Item Value Reference Range Interpretation Comments MCH (test code = MCH) 23.8 pg 27.0-31.0 Memorial QprswrrTVPNWQZBMN8652-76-64 10:37:0031.3[facility]annHEMATOLOGY 2020-08-29 10:37:0018.2[facility] FqebfmlYGHHFEXHUJ7734-31-56 10:37:46786Ncucvzqr RgeibkaRYIMHYEPCP0678-15-47 10:37:007.5[facility] OnbrylcRFDYQBETKG8422-46-90 10:37:00 Test Item Value Reference Range Interpretation Comments PT (test code = PT) 12.8 s 12.0-14.7 [facility] OafmiytEYHXUMKQBO0471-76-23 10:37:00 Test Item Value Reference Range Interpretation Comments INR (test code = INR) 0.97 1 0.85-1.17 [facility] CubwniaTUESZAVOUU9102-95-12 10:37:00 Test Item Value Reference Range Interpretation Comments PTT (test code = PTT) 25.0 s 22.9-35.8 [facility] ShnjxssNWENWYZKCF3773-24-51 10:37:0070.5[facility] HermannHEMATOLOGY 2020-08-29 10:37:0018.8[facility] QqnvsobGVREMKAVMI4610-89-62 10:37:009.5[facility] UyxusacBQXHETQOEC2522-77-59 10:37:000.9[facility] NobxsgaMMKEAMGHBS8346-20-13 10:37:000.3[facility] YihnjviFVLUEUBVPQ3065-23-81 10:37:004.8[facility] CJUERYGDOG8216-24-23 10:37:001.3[facility] MvafwebANNGQRLXCE2500-71-57 10:37:000.6 [facility] VhpxbadXIPDXDTNQP8641-17-06 10:37:000.1[facility]annHEMATOLOGY 2020-08-29 10:37:001+ *ABN*(08/29/20 5:37 AM)[facility] PgioaguKFENWKYRSP7650-05-18 10:37:00Not Detected (08/29/20 5:37 AM)[facility]annBLOOD BANK RESULTS 2020-08-29 10:37:00Negative (08/29/20 5:37 AM)[facility]annCHEM PWIZR4907-16-79 10:37:90836Jrnmvcnu HermannCHEM QPWVR2194-01-85 10:37:0028[facility] HermannCHEM XRYHH8215-74-14 10:37:001.01[facility] HermannCHEM TKZBD1123-40-33 10:37:21133 [facility]annCHEM FYHQI5174-92-31 10:37:003.8[facility] HermannCHEM PANEL 2020-08-29 10:37:81325Xbldglxp HermannCHEM HMTXW7412-99-14 10:37:0028[facility] HermannCHEM KDUVI0450-30-15 10:37:009.8[facility] HermannCHEM OHMEV8575-32-09 10:37:0011.8[facility] HermannCHEM EAVWJ4247-69-94 10:37:0059[facility] HermannCHEM XPHRI0695-64-51 10:37:002.9[facility] AbhrhxaXKZMFDLVAV2753-33-70 10:37:006.8 [facility] JxufzjpLGXDXKJNKU4511-08-04 10:37:004.47[facility]annHEMATOLOGY 2020-08-29 10:37:0010.6[facility] JximyrkTQSUNIAAFE7304-88-87 10:37:0034.0[facility] JaofytkLKMEVMHPPL2663-16-55 10:37:0076.1[facility] GpruzicRVBQMZMTPA0536-71-10 10:37:00 Test Item Value Reference Range Interpretation Comments MCH (test code = MCH) 23.8 pg 27.0-31.0 [facility] CkreadjBTDWDMKUOQ6998-81-66 10:37:0031.3[facility] HermannHEMATOLOGY 2020-08-29 10:37:0018.2[facility] RzpzorsEPXTJYTRRN6907-03-23 10:37:13933Jlesxgdl SrhgdefLOBUQARRYS7950-29-22 10:37:007.5[facility] TjlkxdlVDZATCDSXO9392-84-94 10:37:00 Test Item Value Reference Range Interpretation Comments PT (test code = PT) 12.8 s 12.0-14.7 [facility] UjsibdiJGOEDXNIVA2771-18-49 10:37:00 Test Item Value Reference Range Interpretation Comments INR (test code = INR) 0.97 1 0.85-1.17 [facility] NywecjjQULOZOYJMN7828-21-97 10:37:00 Test Item Value Reference Range Interpretation Comments PTT (test code = PTT) 25.0 s 22.9-35.8 [facility] GnibghuHYPMHWWFFN2516-25-40 10:37:0070.5[facility] HermannHEMATOLOGY 2020-08-29 10:37:0018.8[facility] TldtaasKPOZAEAFDZ7515-43-40 10:37:009.5[facility] PuaigktZKXECZYCGW2024-21-45 10:37:000.9[facility] WmqssnwXBCKYLQOOD0174-28-28 10:37:000.3[facility] RlwcpqxCSQACFBLJM5211-53-27 10:37:004.8[facility] [place] RVYOOUZJFD0153-89-72 10:37:001.3[facility] CwkdshjFPCYHDPMPE6046-78-11 10:37:000.6 [facility] WntnmqsUIHNXEWRYV9699-70-52 10:37:000.1[facility] HermannHEMATOLOGY 2020-08-29 10:37:001+ *ABN*(08/29/20 5:37 AM)[facility] HucwhjjAZMYRDPSAR7194-70-04 10:37:00Not Detected (08/29/20 5:37 AM)[facility]annBLOOD BANK RESULTS 2020-08-29 10:37:00Negative (08/29/20 5:37 AM)[facility] HermannCHEM UMSPJ4624-01-53 10:37:63167Nrujjvor HermannCHEM UIUSM0157-97-54 10:37:0028[facility] HermannCHEM AMMWY1273-60-07 10:37:001.01[facility] HermannCHEM LIDTL3910-87-67 10:37:92435 [facility]annCHEM FABSJ8761-27-03 10:37:003.8[facility] HermannCHEM PANEL 2020-08-29 10:37:73222Dtwddtek HermannCHEM AEQMZ5204-55-43 10:37:0028[facility] HermannCHEM RGIZW2115-59-15 10:37:009.8[facility] HermannCHEM DTUNS3008-84-25 10:37:0011.8[facility] HermannCHEM HPOKL8109-53-26 10:37:0059[facility] HermannCHEM JKACY5503-09-40 10:37:002.9[facility] MbuadfbRBAXSHPDTK1521-01-99 10:37:006.8 [facility] OrxmrzgAHVLWJJWQZ0803-95-19 10:37:004.47[facility] HermannHEMATOLOGY 2020-08-29 10:37:0010.6[facility] UiqrijpXCRCFZCYLH2455-51-12 10:37:0034.0[facility] BxksbtmTXGWTRYFNI8798-80-04 10:37:0076.1[facility] GkntomeFBOQOQHRIN2348-06-69 10:37:00 Test Item Value Reference Range Interpretation Comments MCH (test code = MCH) 23.8 pg 27.0-31.0 [facility] GuwtwntTKZJASJEPW5942-53-52 10:37:0031.3[facility] HermannHEMATOLOGY 2020-08-29 10:37:0018.2[facility] XlgnucsFKOCSRLBOX2435-90-32 10:37:90782Vllbdfje InbpqenWNKEJTYXLS1962-98-76 10:37:007.5[facility] QzlbbhhHFDIEJCOER2785-32-75 10:37:00 Test Item Value Reference Range Interpretation Comments PT (test code = PT) 12.8 s 12.0-14.7 [facility] QesfgptKZLAMEUFNV1040-39-78 10:37:00 Test Item Value Reference Range Interpretation Comments INR (test code = INR) 0.97 1 0.85-1.17 [facility] YxgwngoEODBZGBALF0250-45-58 10:37:00 Test Item Value Reference Range Interpretation Comments PTT (test code = PTT) 25.0 s 22.9-35.8 [facility] OlonzzxJXWPGGIODS0916-90-78 10:37:0070.5[facility]HE[facility]OLOGY 2020-08-29 10:37:0018.8[facility] GvvojzdXNYRSTQDUB7883-69-43 10:37:009.5[facility] GyhutdfDPQYJWAXER4813-21-15 10:37:000.9[facility] XlflyjaDMSTKISOIW1066-85-90 10:37:000.3[facility] IhhagigSNQTFSFPKG2325-80-19 10:37:004.8[facility] SZYJKSHSGV2989-34-32 10:37:001.3[facility] LyybiebIQAONMOGUU9506-78-93 10:37:000.6 [facility] DfvyedeHPQFKJITQH6388-85-53 10:37:000.1[facility]annHEMATOLOGY 2020-08-29 10:37:001+ *ABN*(08/29/20 5:37 AM)[facility] AowcleyKPXWHGSRFT1368-07-05 10:37:00Not Detected (08/29/20 5:37 AM)[facility]BL[facility] RESULTS 2020-08-29 10:37:00Negative (08/29/20 5:37 AM)[facility]annCHEM WMMWJ0359-63-74 10:37:28617Lplaxywb HermannCHEM WLEXZ8332-65-25 10:37:0028[facility]annCHEM ZPOBE5747-77-00 10:37:001.01[facility] HermannCHEM KGPRF0351-70-27 10:37:77831 [facility]annCHEM FOGBV0707-59-11 10:37:003.8[facility]annCHEM PANEL 2020-08-29 10:37:33629Onmevgpm HermannCHEM EPJNC8942-42-65 10:37:0028[facility]annCHEM LIBUM2346-50-92 10:37:009.8[facility] HermannCHEM CMMAX0460-18-34 10:37:0011.8[facility] HermannCHEM XPWVU4084-37-98 10:37:0059[facility]annCHEM ZQJTB6979-42-57 10:37:002.9[facility] JpfrbpeNUVKKCTQIY8279-80-38 10:37:006.8 [facility] CdjmifgWROXVKRMKA0983-77-02 10:37:004.47[facility]annHEMATOLOGY 2020-08-29 10:37:0010.6[facility] HqmelqaKCQODTBFFT5185-54-31 10:37:0034.0[facility] UledetfZJAJVJZQQI1801-16-33 10:37:0076.1[facility] EnakdllDGMBYFOPAM4794-11-01 10:37:00 Test Item Value Reference Range Interpretation Comments MCH (test code = MCH) 23.8 pg 27.0-31.0 [facility] SdimjumLLBUYZNMYS3496-39-72 10:37:0031.3[facility]ann[facility]MATOLOGY 2020-08-29 10:37:0018.2[facility] SheqsesARCGGOQJVL8578-20-77 10:37:32963Arrzqjli VfacmfwRKFSXHVCYO7382-45-31 10:37:007.5[facility] EpbwrxtQHKTRSDRRD0978-67-00 10:37:00 Test Item Value Reference Range Interpretation Comments PT (test code = PT) 12.8 s 12.0-14.7 [facility] HdambvmOBLLPUSPUK5712-33-23 10:37:00 Test Item Value Reference Range Interpretation Comments INR (test code = INR) 0.97 1 0.85-1.17 [facility] KfiprotYKGFJJMNVL5839-64-81 10:37:00 Test Item Value Reference Range Interpretation Comments PTT (test code = PTT) 25.0 s 22.9-35.8 [facility] ZoaeyfmMBPFXGKZRS9336-78-17 10:37:0070.5[facility]annHEMATOLOGY 2020-08-29 10:37:0018.8[facility] FcaidckPZNVSTSURW7132-78-37 10:37:009.5[facility] FtflnpbSJAJYIZXDN4802-28-73 10:37:000.9[facility] SysnonqCOHDWYFYNE1668-81-97 10:37:000.3[facility] ZfehclbVQPPCOCDYL2313-72-16 10:37:004.8[facility] FKNUAKCVHB9403-02-23 10:37:001.3[facility] EjgfrqtWZAQLFVXSO0228-22-75 10:37:000.6 [facility] BjliavyIUIGOHXKPM6510-11-36 10:37:000.1[facility]annHEMATOLOGY 2020-08-29 10:37:001+ *ABN*(08/29/20 5:37 AM)[facility] YxqxxwvWFUEZBATKH3359-51-16 10:37:00Not Detected (08/29/20 5:37 AM)[facility] RESULTS 2020-08-29 10:37:00Negative (08/29/20 5:37 AM)[facility]annCHEM GPPMA7481-95-17 10:37:44595Lovfivbx HermannCHEM MXGDO5780-17-37 10:37:0028[facility]annCHEM OBCFZ0724-31-93 10:37:001.01[facility]annCHEM WWIAV6209-24-06 10:37:20050 [facility]annCHE[facility] RVHUI9701-04-83 10:37:003.8[facility]annCHEM PANEL 2020-08-29 10:37:00865Lbgmlvnu HermannCHEM YQEMP3549-67-46 10:37:0028[facility]annCHEM DLLGG3719-86-78 10:37:009.8[facility]annCHEM JSRBL8224-84-76 10:37:0011.8[facility]annCHEM MINJV5645-47-26 10:37:0059[facility]annCHEM ORNAH0137-02-08 10:37:002.9[facility] FejdvqgAUQFGRHNTT0617-49-49 10:37:006.8 [facility] JtrafhrNMCOYCYVKV0325-54-83 10:37:004.47[facility]annHEMATOLOGY 2020-08-29 10:37:0010.6[facility] JqgbromPBDHWMDNVP9736-61-86 10:37:0034.0[facility] GosufekMEKRCGMICH7326-25-56 10:37:0076.1[facility] IoaijtcHKUTRUNTCH2920-75-71 10:37:00 Test Item Value Reference Range Interpretation Comments MCH (test code = MCH) 23.8 pg 27.0-31.0 [facility] SzgabagFUSAOUAKRQ7276-09-01 10:37:0031.3[facility]annHEMATOLOGY 2020-08-29 10:37:0018.2[facility] DkspmeyGQPNNGBRQA9262-96-43 10:37:89441Ghwyxqup AlnzllkHUYSTXINCC8756-67-79 10:37:007.5[facility] KztplymLBUVFNSVKS2175-27-79 10:37:00 Test Item Value Reference Range Interpretation Comments PT (test code = PT) 12.8 s 12.0-14.7 [facility] SaballrYUAQXVESRT4391-80-60 10:37:00 Test Item Value Reference Range Interpretation Comments INR (test code = INR) 0.97 1 0.85-1.17 [facility] MstlrqiTJEYGVXHIA2306-54-63 10:37:00 Test Item Value Reference Range Interpretation Comments PTT (test code = PTT) 25.0 s 22.9-35.8 [facility] VrrzgspQKXJLGVHMQ9291-36-06 10:37:0070.5[facility]annHEMATOLOGY 2020-08-29 10:37:0018.8[facility] MhzcreiFCPPDQCGFO2406-28-00 10:37:009.5[facility] ZwvzvgiXYERKYNBVN2183-10-55 10:37:000.9[facility] TbgkjsqHIXWZOHWML3904-99-68 10:37:000.3[facility] UjvzsxnHJXLCTXOYY5112-49-13 10:37:004.8[facility] HGYIENXOPW0047-88-75 10:37:001.3[facility] EpuxeidUIZWJHTFNO7641-17-43 10:37:000.6 [facility] AvgdzsvOTDVFWGSLD7882-90-73 10:37:000.1[facility]annHEMATOLOGY 2020-08-29 10:37:001+ *ABN*(08/29/20 5:37 AM)[facility] GmgllimVYCXIMMBJH3632-32-62 10:37:00Not Detected (08/29/20 5:37 AM)[facility]annCHEM DFFUB7701-13-08 10:37:49674Gpjdtpdu HermannCHEM NWSYI4548-78-52 10:37:0028[facility]annCHEM HRTQR1465-41-12 10:37:001.01[facility]annCHEM WHCRV4255-33-93 10:37:69652 [facility]annCHEM HREYO5209-69-76 10:37:003.8[facility]annCHEM PANEL 2020-08-29 10:37:23712Gycwvaqq HermannCHEM CDIYA5532-22-70 10:37:0028[facility]annCHEM MTBTW0437-48-79 10:37:009.8[facility]annCHEM IFNOF0708-78-40 10:37:0011.8[facility]annCHEM QUDBY7026-68-85 10:37:0059[facility]annCHEM RISZH6855-79-75 10:37:002.9[facility] HdhiiuaJQHUQBCSJE2639-76-16 10:37:006.8 [facility] KxpkrsoBLATMNFDSV8169-53-71 10:37:004.47[facility]annHEMATOLOGY 2020-08-29 10:37:0010.6[facility] YqzumadRTSMOGDMRU5628-22-69 10:37:0034.0[facility] BrrigieWGMCGBZSSI6724-50-95 10:37:0076.1[facility] BnnfxpgIBXCGCESHY1110-86-54 10:37:00 Test Item Value Reference Range Interpretation Comments MCH (test code = MCH) 23.8 pg 27.0-31.0 [facility] IavxvzyFNHXHPLGFK2107-63-97 10:37:0031.3[facility]annHEMATOLOGY 2020-08-29 10:37:0018.2[facility] FttlgedSQEXPKQTXZ8010-83-47 10:37:95756Sftfkiei CbbxkfwJZPPGHZAWE1554-37-31 10:37:007.5[facility] DvwhldqIOJRWJDTRU4303-00-63 10:37:00 Test Item Value Reference Range Interpretation Comments PT (test code = PT) 12.8 s 12.0-14.7 [facility] JekaqfsWNTQDYTOAZ7284-37-19 10:37:00 Test Item Value Reference Range Interpretation Comments INR (test code = INR) 0.97 1 0.85-1.17 [facility] VqeuhraDPXDQEWWST0953-78-66 10:37:00 Test Item Value Reference Range Interpretation Comments PTT (test code = PTT) 25.0 s 22.9-35.8 [facility] FstoiifCFLWVCNJUD2302-35-35 10:37:0070.5[facility]annHEMATOLOGY 2020-08-29 10:37:0018.8[facility] MzvclfoJFJALQGBOT3913-71-47 10:37:009.5[facility] QrwudroBYKEIVTJOQ8591-24-50 10:37:000.9[facility] KlhahgwHKSPUSQSML5899-67-52 10:37:000.3[facility] TnjidttPHHXIEZZLK3181-99-85 10:37:004.8[facility] [place] PWQBANUKKR2276-84-95 10:37:001.3[facility] OcumwxeXGJNJWZPSF0815-87-02 10:37:000.6 [facility] BoyoaizHSZCCHMVFF5842-01-40 10:37:000.1[facility]annHEMATOLOGY 2020-08-29 10:37:001+ *ABN*(08/29/20 5:37 AM)[facility] OmqvygyGKZJAVDIYO9783-30-75 10:37:00Not Detected (08/29/20 5:37 AM)[facility]annBLOOD BANK RESULTS 2020-08-29 10:37:00Negative (08/29/20 5:37 AM)[facility]annCHEM MZORT4719-05-65 10:37:61110Krbsdavy HermannCHEM LIZLZ8127-28-31 10:37:0028[facility]annCHEM NIKVB5874-64-76 10:37:001.01[facility]annCHEM HWICJ9657-67-17 10:37:02885 [facility]annCHE[facility] AURLQ9726-13-56 10:37:003.8[facility]annCHEM PANEL 2020-08-29 10:37:09824Hxeuvlbc HermannCHEM HNQAX7924-51-51 10:37:0028[facility]annCHEM ZNVRN8367-01-66 10:37:009.8[facility]annCHEM NDSPN9944-19-34 10:37:0011.8[facility]annCHEM RERDJ6642-31-50 10:37:0059[facility]annCHEM CASTC4432-32-05 10:37:002.9[facility] MntjickGJJCRSAWAH5068-73-16 10:37:006.8 [facility] YyokimtZDQVOEKOVV4046-45-04 10:37:004.47[facility]annHEMATOLOGY 2020-08-29 10:37:0010.6[facility] HakvcqgMVPNOTDLBW4025-55-80 10:37:0034.0[facility] PihzjedLLYEYESTGF9897-67-76 10:37:0076.1[facility] ZisotqjHYYQFNHSQK7265-67-83 10:37:00 Test Item Value Reference Range Interpretation Comments MCH (test code = MCH) 23.8 pg 27.0-31.0 [facility] ZeekvluQERWAQBUMT8399-40-16 10:37:0031.3[facility]annHEMATOLOGY 2020-08-29 10:37:0018.2[facility] DjmkqimWSEWEEHXNW6155-57-86 10:37:29856[place] SogurdtDEIGSAUCEK0091-64-11 10:37:007.5[facility] KtccgczSTHHDMMKIM1574-71-81 10:37:00 Test Item Value Reference Range Interpretation Comments PT (test code = PT) 12.8 s 12.0-14.7 [facility] KcpzioaGYQCNNVLYQ8462-56-24 10:37:00 Test Item Value Reference Range Interpretation Comments INR (test code = INR) 0.97 1 0.85-1.17 [facility] OetljncZHYOIKIDOM8574-28-56 10:37:00 Test Item Value Reference Range Interpretation Comments PTT (test code = PTT) 25.0 s 22.9-35.8 [facility] StbytshPWPOAQBXAZ7004-54-41 10:37:0070.5[facility]annHEMATOLOGY 2020-08-29 10:37:0018.8[facility] NqfbbqeOUBPIOQLER9990-84-94 10:37:009.5[facility] QzqoizkBFXRFDFFAE9405-75-18 10:37:000.9[facility] XupjlrvMWLQAQOQNI3217-64-12 10:37:000.3[facility] BrilrynRHBOLPBNEI5005-87-16 10:37:004.8[facility] [place] LXUVRQREDM9705-04-41 10:37:001.3[facility] SpfnyazBSEQQPTGBC5649-70-99 10:37:000.6 [facility] UjlwefqDNDKITRZVK1710-36-11 10:37:000.1[facility]annHEMATOLOGY 2020-08-29 10:37:001+ *ABN*(08/29/20 5:37 AM)[facility] DdkhrlsTLNHWPPJJL4236-48-75 10:37:00Not Detected (08/29/20 5:37 AM)[facility]annBLO[facility] BANK RESULTS 2020-08-29 10:37:00Negative (08/29/20 5:37 AM)[facility] HermannCHLAMYDIA, GC, TV,PCR, IN JTKQO4196-88-80 15:38:00 Test Item Value Reference Range Interpretation Comments FT (test code = CHTR) Not detected (qualifier Not Detected N value) FT (test code = Not detected (qualifier Not Detected N NGONO) value) FT (test code = TRVG) Not detected (qualifier Not Detected N value) [facility] TWFBRCYQGZH4030-76-64 10:57:00 Test Item Value Reference Range Interpretation Comments Color (test code = UCOLR) Dk. Yellow Clarity (test code = UCLAR) Hazy Glucose (test code = UGLUC) NEGATIVE NEGATIVE N Bilirubin (test code = UBILI) NEGATIVE NEGATIVE N Ketones (test code = UKET) NEGATIVE NEGATIVE N Specific [place] (test code = 1.025 1.005-1.030 A [...] None Seen None Seen N URCRYS) [facility]"
[2022-09-24 10:46] LABS: Absolute Lymphocytes (CBC) 0.8 K/uL (0.7-4.9); Hematocrit 35.7 % (36.0-45.0); Lymphocytes % 12.4 % (15.3-44.8); MCV 85.7 fL (80-100); MPV 7.6 fL (7.6-11.3); RBC Red Blood Cell Count 4.17 M/uL (3.86-4.86)
[2022-09-24] MEDS ORDERED: METHYLPREDNISOLONE 125 MG INJ ONE (10:46)
[2022-09-24] MEDS ORDERED: predniSONE 10 MG TAB ONE (10:46)
[2022-09-24] MEDS ORDERED: LEVALBUTEROL 1.25 MG/3 ML NEB ONE (10:47)
[2022-09-24] MEDS ORDERED: levoFLOXacin 250 MG TAB ONE (10:47)
[2022-09-24 10:51] LABS: Protime INR 1.01
[2022-09-24 11:03] LABS: SARS-CoV-2 Antigen Rapid Res Negative (Negative)
[2022-09-24 11:04] LABS: Albumin 3.3 g/dL (3.4-5.0); Bilirubin Direct 0.2 mg/dL (0-0.2); Bilirubin Total 0.5 mg/dL (0.2-1.0); Magnesium 2.2 mg/dL (1.6-2.4); Potassium 3.2 mEq/L (3.5-5.1); Protein, Total 6.8 g/dL (6.4-8.2); Troponin High Sensitivity 16.9 pg/mL (<58.9)
[2022-09-24] MEDS ORDERED: POTASSIUM 25 MEQ EFFERV TAB ONE (11:49)
--- NOTE | 2022-09-24 12:01 | RAD REPORT ---
EXAM DESCRIPTION: [facility] Pa And Lat (2 Views)09/24/2022 10:15 am CLINICAL HISTORY: Cough;COPD COMPARISON: Chest Single View dated 09/22/2022; Chest Single View dated 09/22/2022; Chest Single View da arpit 09/19/2022; Chest Single View dated 08/27/2022; Chest Abd Pelvis Wo Con dated 08/27/2022; Thorax W/ Co n dated 09/20/2022 TECHNIQUE: PA and lateral views of the chest. FINDINGS: The lungs are clear. No pneumothorax or effusion. Stable cardiomegaly and prominence of th e pulmonary artery shadows. Metallic prosthesis which may represent a left atrial appendage occlusion device is stable. Mediastinal Contours are unremarkable. Bilateral reverse shoulder arthroplasty dimas dware in place. IMPRESSION: No acute cardiopulmonary process. Stable cardiomegaly.
--- NOTE | 2022-09-24 12:08 | EDPHYS ---
Physician Documentation [facility] Name: Marjan Kolb Age: 67 yrs Sex: Female : 1955 Arrival Date: 09/24/2022 Time: 09:21 Bed 5 Private MD: SHEELA Physician Justus Kolb HPI: 09/24 10:01 This 67 yrs old Female presents to ER via Ambulatory with complaints of thomas Breathing Difficulty, Cough. 10:01 The patient has shortness of breath at rest, with light activity. Onset: The thomas symptoms/episode began/occurred 2 day(s) ago. Duration: The symptoms are continuous, and are steadily getting worse. The patient's shortness of breath is aggravated by coughing. Associated signs and symptoms: Pertinent positives: productive cough. Severity of symptoms: At their worst the symptoms were mild in the emergency department the symptoms are unchanged. The patient has not experienced similar symptoms in the past. Historical: - Allergies: 09:30 Azithromycin; iw 09:30 Bactrim; iw 09:30 butorphanol; iw 09:30 Fentanyl; iw 09:30 Reglan; iw 09:30 Sulfa (Sulfonamide Antibiotics); iw 09:30 TRIMETHOPRIM; iw - PMHx: 09:30 angina pectoris; Anxiety; Atrial fibrillation; Bipolar disorder; esophageal varicies; iw Hepatitis; HIV positive; Hypertensive disorder; Migraine; panic attack; - Immunization history:: Adult Immunizations up to date. - Social history:: Smoking status: Patient reports the use of cigarette tobacco products. ROS: 10:02 Constitutional: Negative for fever, chills, and weight loss, Eyes: Negative for injury, thomas pain, redness, and discharge, ENT: Negative for injury, pain, and discharge, Neck: Negative for injury, pain, and swelling, Cardiovascular: Negative for chest pain, palpitations, and edema, Abdomen/GI: Negative for abdominal pain, nausea, vomiting, diarrhea, and constipation, Back: Negative for injury and pain, : Negative for injury, bleeding, discharge, and swelling, MS/Extremity: Negative for injury and deformity, Skin: Negative for injury, rash, and discoloration, Neuro: Negative for headache, weakness, numbness, tingling, and seizure, Psych: Negative for depression, anxiety, suicide ideation, homicidal ideation, and hallucinations, Allergy/Immunology: Negative for hives, rash, and allergies, Endocrine: Negative for neck swelling, polydipsia, polyuria, polyphagia, and marked weight changes, Hematologic/Lymphatic: Negative for swollen nodes, abnormal bleeding, and unusual bruising. 10:02 Respiratory: Positive for cough, shortness of breath, at rest. Exam: 10:02 Constitutional: This is a well developed, well nourished patient who is awake, alert, thomas and in no acute distress. Head/Face: Normocephalic, atraumatic. Eyes: Pupils equal round and reactive to light, extra-ocular motions intact. Lids and lashes normal. Conjunctiva and sclera are non-icteric and not injected. Cornea within normal limits. Periorbital areas with no swelling, redness, or edema. ENT: Nares patent. No nasal discharge, no septal abnormalities noted. Tympanic membranes are normal and external auditory canals are clear. Oropharynx with no redness, swelling, or masses, exudates, or evidence of obstruction, uvula midline. Mucous membranes moist. Neck: Trachea midline, no thyromegaly or masses palpated, and no cervical lymphadenopathy. Supple, full range of motion without nuchal rigidity, or vertebral point tenderness. No Meningismus. Chest/axilla: Normal chest wall appearance and motion. Nontender with no deformity. No lesions are appreciated. Cardiovascular: Regular rate and rhythm with a normal S1 and S2. No gallops, murmurs, or rubs. Normal PMI, no JVD. No pulse deficits. Abdomen/GI: Soft, non-tender, with normal bowel sounds. No distension or tympany. No guarding or rebound. No evidence of tenderness throughout. Back: No spinal tenderness. No costovertebral tenderness. Full range of motion. Female : Normal external genitalia. Skin: Warm, dry with normal turgor. Normal color with no rashes, no lesions, and no evidence of cellulitis. MS/ Extremity: Pulses equal, no cyanosis. Neurovascular intact. Full, normal range of motion. Neuro: Awake and alert, GCS 15, oriented to person, place, time, and situation. Cranial nerves II-XII grossly intact. Motor strength 5/5 in all extremities. Sensory grossly intact. Cerebellar exam normal. Normal gait. Psych: Awake, alert, with orientation to person, place and time. Behavior, mood, and affect are within normal limits. 10:02 Respiratory: mild respiratory distress is noted, Respirations: normal, Breath sounds: bronchial sounds, that are mild, rhonchi, that are mild, are scattered, Respiratory rate: 18 10:02 Musculoskeletal/extremity: DVT Exam: No signs of deep vein thrombosis. no pain, no swelling, no tenderness, negative Homans' sign noted on exam, no appreciated bluish discoloration, no erythema, no increased warmth. 10:49 ECG was reviewed by the Attending Physician. [facility] Vital Signs: 09:29 BP 198 / 106; Pulse 61; Resp 18; Temp 97.2; Pulse Ox 98% on R/A; Weight 80.74 kg; iw Height 5 ft. 4 in. ; 11:35 BP 206 / 104; Pulse 63; Resp 18; Pulse Ox 100% on R/A; hb 12:41 bp 09:29 Body Mass Index 30.55 (80.74 kg, 162.56 cm) iw 12:41 PT REFUSED bp MDM: 09:26 Patient medically screened. [facility] 10:03 Differential diagnosis: Anemia asthma, Bronchitis CHF exacerbation, Chronic Obstructive thomas Pulmonary Disease Myocardial Infarction pneumonia, Pneumothorax pulmonary edema, Pulmonary Embolism reactive airway disease, Sepsis Unstable Angina. Antibiotic administration: The patient is discharged and will get outpatient antibiotics, Levaquin. Differential Diagnosis: Bronchitis Influenza Upper Respiratory Infection Asthma Exacerbation Viral Syndrome Pneumonia. Immunization status: Pneumococcal vaccine: within last 5 years. Influenza vaccine: within last 5 years. Data reviewed: vital signs, nurses notes, lab test result(s), EKG, radiologic studies, plain films. Consideration of Admission/Observation Escalation of care including admission/observation considered. I considered the following discharge prescriptions or medication management in the emergency department Medications were administered in the Emergency Department. See MAR. Test considered but Not performed: CT: no ct chest ro pe. Care significantly affected by the following chronic conditions: Hypertension, anxiety, a fib, bipolar. Counseling: I had a detailed discussion with the patient and/or guardian regarding: the historical points, exam findings, and any diagnostic results supporting the discharge/admit diagnosis, lab results, radiology results, the need for outpatient follow up, for definitive care, a family practitioner, a administration assistant. 09/24 09:51 Order name: Basic Metabolic Panel; Complete Time: 11: [facility] 09/24 09:51 Order name: CBC with Diff; Complete Time: 11: [facility] 09/24 09:51 Order name: LFT's; Complete Time: 11:07 [facility] 09/24 09:51 Order name: Magnesium; Complete Time: 11: [facility] 09/24 09:51 Order name: NT PRO-BNP; Complete Time: 11: [facility] 09/24 09:51 Order name: PT-INR; Complete Time: 11: [facility] 09/24 09:51 Order name: Troponin HS; Complete Time: 11: [facility] 09/24 10:00 Order name: SARS RAPID; Complete Time: 11: [facility] 09/24 10:00 Order name: Influenza Screen (a \T\ B); Complete Time: 11:34 [facility] 09/24 10:00 Order name: Blood Culture Adult (2) 09/24 10:00 Order name: Lactate w/ 2H reflex if indic.; Complete Time: 11:07 [facility] 09/24 09:59 Order name: Chest Pa And Lat (2 Views) XRAY 09/24 09:51 Order name: EKG; Complete Time: 09:52 [facility] 09/24 09:51 Order name: Cardiac monitoring; Complete Time: 10:40 [facility] 09/24 09:51 Order name: EKG - Nurse/Tech; Complete Time: 10:59 [facility] 09/24 09:51 Order name: IV Saline Lock; Complete Time: 10:40 [facility] 09/24 09:51 Order name: Labs collected and sent; Complete Time: 10:40 [facility] 09/24 09:51 Order name: O2 Per Protocol; Complete Time: 10:40 [facility] 09/24 09:51 Order name: O2 Sat Monitoring; Complete Time: 10:40 [facility] EC:49 Rate is 56 beats/min. Rhythm is regular. QRS Morgan is Normal. MA interval is normal. QRS thomas interval is normal. QT interval is normal. No Q waves. T waves are Normal. No ST changes noted. Clinical impression: LVH, Sinus bradycardia, and No evidence of ischemia. Interpreted by me. Reviewed by me. Administered Medications: 10:48 Drug: predniSONE PO 20 mg Route: PO; hb 11:45 Follow up: Response: No adverse reaction bp 10:49 Drug: Levalbuterol Inhalation 2.5 mg Route: Inhalation; hb 10:49 Drug: MethylPrednisoLONE IVP 125 mg Route: IVP; Site: right forearm; hb 11:45 Follow up: Response: No adverse reaction bp 10:49 Drug: LevOfloxacin PO 500 mg Route: PO; hb 11:45 Follow up: Response: No adverse reaction bp 11:45 Drug: Potassium PO Effervescent Tablet 25 mEq Route: PO; bp 11:46 Follow up: Response: No adverse reaction bp 12:41 CANCELLED (Other Intervention Used): morphine IVP or IV 4 mg IVP once over 4 mins bp 12:41 Drug: Ondansetron IVP 4 mg Route: IVP; Site: right forearm; bp 12:41 Follow up: Response: No adverse reaction bp 12:41 Not Given (Patient Refused): [place] PO 10 mg-325 mg 1 tabs PO once bp Disposition Summary: 09/24/22 12:08 Discharge Ordered Location: Home thomas Problem: new thomas Symptoms: have improved thomas Condition: Stable thomas Diagnosis - Acute upper respiratory infection, unspecified thomas - Fever, unspecified thomas - Unspecified kidney failure thomas - Hypokalemia - 3.2 thomas - Essential (primary) hypertension thomas - Cardiomegaly thomas Followup: thomas - With: Private Physician - When: 5 - 6 days - Reason: Recheck today's complaints, Continuance of care, Re-evaluation by your physician Followup: thomas - With: Mike Lund MD - When: 2 - 3 days - Reason: Recheck today's complaints, Re-evaluation by your physician Discharge Instructions: - Discharge Summary Sheet thomas - Fever, Adult thomas - Hypertension, Adult thomas - Cool Mist Vaporizer thomas - Upper Respiratory Infection, Adult, Xmhh-an-Pexp thomas - Hypertension, Adult, Ojuu-vm-Rtbo thomas - How to Take Your Blood Pressure, Aryh-aa-Nqgp thomas - Cough, Adult thomas - Managing Your Hypertension thomas Forms: - Medication Reconciliation Form thomas - Thank You Letter thomas - Antibiotic Education thomas - Prescription Opioid Use thomas Prescriptions: - Prednisone 20 mg Oral Tablet - take 1 tablet by ORAL route once daily for 5 days; 5 tablet; Refills: 0, thomas Product Selection Permitted - Albuterol Sulfate 2.5 mg /3 mL (0.083 %) Inhalation Solution for Nebulization - inhale 1 unit by NEBULIZATION route every 4-6 hours As needed; 25 unit; thomas Refills: 0, Product Selection Permitted - levofloxacin 500 mg Oral Tablet - take 1 tablet by ORAL route once daily for 7 days; 7 tablet; Refills: 0, thomas Product Selection Permitted Signatures: Dispatcher [employer] EDMS Justus Kolb MD MD cha Williams, Irene, [employer] RN, RN RN Carlos Eduardo Madison RN RN bp Corrections: (The following items were deleted from the chart) 10:14 09:51 Chest Single View+RAD.RAD.BRZ ordered. EDMS EDMS 12:41 12:06 morphine IVP or IV 4 mg IVP once over 4 mins ordered. [facility] bp
--- NOTE | 2022-09-24 12:08 | ER ---
Nurse's Notes [facility] Name: Marjan Kolb Age: 67 yrs Sex: Female : 1955 Arrival Date: 09/24/2022 Time: 09:21 Bed 5 Private MD: Diagnosis: Acute upper respiratory infection, unspecified;Fever, unspecified;Unspecified kidney failure;Hypokalemia-3.2;Essential (primary) hypertension;Cardiomegaly Presentation: 09/24 09:29 Chief complaint: Patient states: cough with mucous, and chest pains since yesterday. iw Coronavirus screen: Client presents with at least one sign or symptom that may indicate coronavirus-19. Ebola Screen: Patient negative for fever greater than or equal to 101.5 degrees Fahrenheit, and additional compatible Ebola Virus Disease symptoms Patient denies exposure to infectious person. Patient denies travel to an Ebola-affected area in the 21 days before illness onset. No symptoms or risks identified at this time. Initial Sepsis Screen: Does the patient meet any 2 criteria? No. Patient's initial sepsis screen is negative. Does the patient have a suspected source of infection? No. Patient's initial sepsis screen is negative. Risk Assessment: Do you want to hurt yourself or someone else? Patient reports no desire to harm self or others. 09:29 Method Of Arrival: Ambulatory iw 09:29 Acuity: BLAYNE 3 iw Historical: - Allergies: 09:30 Azithromycin; iw 09:30 Bactrim; iw 09:30 butorphanol; iw 09:30 Fentanyl; iw 09:30 Reglan; iw 09:30 Sulfa (Sulfonamide Antibiotics); iw 09:30 TRIMETHOPRIM; iw - PMHx: 09:30 angina pectoris; Anxiety; Atrial fibrillation; Bipolar disorder; esophageal varicies; iw Hepatitis; HIV positive; Hypertensive disorder; Migraine; panic attack; - Immunization history:: Adult Immunizations up to date. - Social history:: Smoking status: Patient reports the use of cigarette tobacco products. Screenin:36 [facility] ED Fall Risk Assessment (Adult) Score/Fall Risk Level 0 - 2 = Low Risk hb Oriented to surroundings, Maintained a safe environment, Educated pt \T\ family on fall prevention, incl call for assistance when getting out of bed. Abuse screen: Denies threats or abuse. Denies injuries from another. Nutritional screening: No deficits noted. Tuberculosis screening: No symptoms or risk factors identified. Assessment: 10:35 General: Appears in no apparent distress. Behavior is calm, cooperative. Pain: Pain hb currently is 8 out of 10 on a pain scale. Neuro: Level of Consciousness is awake, alert, obeys commands, Oriented to person, place, time, situation. Cardiovascular: Patient's skin is warm and dry. Rhythm is regular. Respiratory: Reports shortness of breath Respiratory effort is even, unlabored, Respiratory pattern is regular, symmetrical. GI: Reports nausea. : No signs and/or symptoms were reported regarding the genitourinary system. EENT: No signs and/or symptoms were reported regarding the EENT system. Derm: Skin is pink, warm \T\ dry. Musculoskeletal: Reports back pain, chronic. 11:35 Reassessment: Patient appears in no apparent distress at this time. Patient and/or hb family updated on plan of care and expected duration. Pain level reassessed. Patient is alert, oriented x 3, equal unlabored respirations, skin warm/dry/pink. Vital Signs: 09:29 BP 198 / 106; Pulse 61; Resp 18; Temp 97.2; Pulse Ox 98% on R/A; Weight 80.74 kg; iw Height 5 ft. 4 in. ; 11:35 BP 206 / 104; Pulse 63; Resp 18; Pulse Ox 100% on R/A; hb 12:41 bp 09:29 Body Mass Index 30.55 (80.74 kg, 162.56 cm) iw 12:41 PT REFUSED bp ED Course: 09:23 Patient arrived in ED. rg4 09:26 Justus Kolb MD is Attending Physician. thomas 09:30 Triage completed. iw 09:31 Arm band placed on. iw 10:17 Chest Pa And Lat (2 Views) XRAY In Process Unspecified. EDMS 10:32 Inserted saline lock: 24 gauge in right forearm, using aseptic technique. Blood hb collected. 10:39 Tata Rivera, RN is Primary Nurse. hb 10:46 Patient has correct armband on for positive identification. Bed in low position. Call mm9 light in reach. Side rails up X 1. Client placed on continuous cardiac and pulse oximetry monitoring. NIBP monitoring applied. truck rental manager on. Pulse ox on. NIBP on. 11:00 Initial lab(s) drawn, by ED staff, sent to lab. EKG done, by ED staff, reviewed by raymond Kolb MD. 11:01 Warm blanket given. mm9 12:07 Mike Lund MD is Referral Physician. [facility] 12:42 No provider procedures requiring assistance completed. IV discontinued, intact, bp bleeding controlled, No redness/swelling at site. Pressure dressing applied. Administered Medications: 10:48 Drug: predniSONE PO 20 mg Route: PO; hb 11:45 Follow up: Response: No adverse reaction bp 10:49 Drug: Levalbuterol Inhalation 2.5 mg Route: Inhalation; hb 10:49 Drug: MethylPrednisoLONE IVP 125 mg Route: IVP; Site: right forearm; hb 11:45 Follow up: Response: No adverse reaction bp 10:49 Drug: LevOfloxacin PO 500 mg Route: PO; hb 11:45 Follow up: Response: No adverse reaction bp 11:45 Drug: Potassium PO Effervescent Tablet 25 mEq Route: PO; bp 11:46 Follow up: Response: No adverse reaction bp 12:41 CANCELLED (Other Intervention Used): morphine IVP or IV 4 mg IVP once over 4 mins bp 12:41 Drug: Ondansetron IVP 4 mg Route: IVP; Site: right forearm; bp 12:41 Follow up: Response: No adverse reaction bp 12:41 Not Given (Patient Refused): Pimento PO 10 mg-325 mg 1 tabs PO once bp Medication: 11:36 VIS not applicable for this client. hb Outcome: 12:08 Discharge ordered by . thomas 12:42 Discharged to home ambulatory. bp 12:42 Condition: stable 12:42 Discharge instructions given to patient, Instructed on discharge instructions, follow up and referral plans. medication usage, Demonstrated understanding of instructions, follow-up care, medications, Prescriptions given X 3. 12:42 Patient left the ED. bp Signatures: Dispatcher [employer] EDMS Justus Kolb MD MD cha Williams, Irene RN Tata Mae RN RN hb Garcia, Rubi rg4 Carlos Eduardo Olivera RN RN bp Martinez, Maria mm9
[2022-09-24] MEDS ORDERED: HYDROCODONE/APAP 10/325 TAB ONE (12:39)
[2022-09-24] MEDS ORDERED: ONDANSETRON 4 MG/2 ML VIAL ONE (12:43)
[2022-09-24 12:55] VITALS: TEMP 97.2
[2022-09-24 13:00] VITALS: BP 206/104; O2SAT 100
== END 2022-09-24 12:42 | disposition home or self-care (01) ==
LOC: ER 09:21
DX: J06.9 Acute upper respiratory infection, unspecified (principal); E87.6 Hypokalemia; I12.9 Hypertensive chronic kidney disease with stage 1 through stage 4 chronic kidney disease, or unspecified chronic kidney disease; N18.9 Chronic kidney disease, unspecified; I51.7 Cardiomegaly; Z20.822 Contact with and (suspected) exposure to COVID-19; Z21 Asymptomatic human immunodeficiency virus [HIV] infection status; Z72.0 Tobacco use; Z88.1 Allergy status to other antibiotic agents; Z88.2 Allergy status to sulfonamides; Z88.3 Allergy status to other anti-infective agents; Z88.5 Allergy status to narcotic agent; Z88.8 Allergy status to other drugs, medicaments and biological substances
CPT/HCPCS: 87040 ×2; 85025; 80048; 36415; 83735; 85610; 80076; 83605; 84484; 83880; 87804 ×2; 71046; 96375; 96374; 99285; 87811; J7512; J7614; J2930; J2405

== ENCOUNTER 2022-10-02 12:30 | Emergency (ER) | payer OTHER ==
--- OUTSIDE RECORDS SUMMARY | 2022-10-02 12:53 | XMS REPORT | Continuity of Care Document ---
:1955 Author Organization [facility] t Address [address] [place] [address] Care Team Providers Name Role Phone Urmila [...] Attending Clinician PAULETTE GRAY Attending Clinician Unavailable Paulette Galvan Attending Clinician UNKNOWN, ATTENDING Attending Clinician Unavailable Robbi Bal [facility]ician Unavailable Isaias Whiteside RN Attending Clinician Unavailable TOMY MARIE Attending Clinician Unavailable Reilly Means MD Attending Clinician Ofe Shields MD Attending Clinician Tomy Marie MD Attending Clinician Doctor Unassigned, [place] Attending Clinician Unavailable Bill COLES Attending Clinician Unavailable Bill Rose Attending Clinician CHARITY MCALLISTER Attending Clinician Unavailable Charity Mcallister MD Attending Clinician GADIEL KOEHLER Attending Clinician Unavailable Mike Lund Attending Clinician Unavailable NIKOLAI REEVES Attending Clinician Unavailable Eliseo Arce MD Attending Clinician Carol Ann IZQUIERDO, Sarai Lieberman Attending Clinician [phone] Ashly Pelletier MA Attending Clinician Unavailable Dagoberto Bass MD Attending Clinician [place] Evangelista Attending Clinician Lab, Ad[facility] Pob I Attending Clinician Unavailable Monica Rodas MA Attending Clinician Unavailable Agustina Ortiz MA Attending Clinician Unavailable Rody Maguire RN Attending Clinician Unavailable Remigio JENKINS Kirit Barnes Attending Clinician HEMATPOUR, BEVERLY Attending Clinician Unavailable Caridad POWERTRAIN DESIGN ENGINEER, Gloria Attending Clinician Xiao RAMIREZ, Michael Corbin Attending Clinician Unavailable Team, [facility] Attending Clinician UnavailDO PORSHA Newell Attending Clinician Unavailable Gadiel Koehler MD Attending Clinician Tyrone JENKINS, Eveline Sierra Attending Clinician Stanislav RAMIREZ, Eladio Inman Attending Clinician Unavailable Geraldine SALGUERO, Leyda Attending Clinician [phone] Selvin RAMIREZ, Stefanie Attending Clinician Unavailable HOME [...] gabino [facility] [id number] 2012 STAR PLUS OON 00:00:00 [facility] [id number] 2019 DUAL COMPLETE HMO 00:00:00 [facility] [id number] 2019 PLUS 00:00:00 [facility] [id number] 2019 [facility] 00:00:00 [employer] MEDICARE ADV [id number] 2019 2019 00:00:00 00:00:00 Problems Condition Condition Condition Status Onset Resolution Last Treating Co mments Source Name Details Category Date Date Treatment Clinician Date Dyspnea, Dyspnea, Disease Active Unive rs unspecifie unspecifie 02-11 it y of d type d type 00:00: [place] [address] Medical Branch Gastropare Gastropare Disease Active Overview : Methodi sis sis 4-[address] 00:[facility] note l might be different from the original. Added automatic ally from request for surgery [id number] Dysphagia Dysphagia Disease Active Overview: Methodi 4-[address] 00:00: [facility] 00 note l might be different from the original. 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 [...] it y of disorder disorder 00:00: [place] 00 Medical Branch Human Human Disease Active Univers [...] N/V [facility] hoxazole - Clear 00:00: [facility] trimetho DA Active SV [facility] prim - Clear 00:00: Garcia [facility] codeine DA Active SV N/V [facility] - Clear 00:00: Garcia [facility] Metoclop Propensi Active [place] ramide ty to 12-12 Health adverse 00:00: reaction 00 s BUTORPHA DRUG Active Unknown-Cmnt Un mtat NOL INGREDI 11-25 ity of 00:00: [place] [facility] Butorpha Drug Active Unknown - [...] Hives Univers INGREDI 208 ity of 00:00: [place] 00 Medical Branch TRIMETHO DRUG Active Hives [...] to Branch drug Bactrim Bactrim Active Memoria mabel Ferguson Family History Family Member Diagnosis Comments Start Date Stop Date Source Natural father Diabetes [facility] Natural father Other - see comments [facility] Natural [facility] Hy[facility] father [facility] mother [facility] Social History Social Habit Start Date Stop Date Quantity Comments Source Gender identity 2020-10-06 Identifies as [facility] 15:23:56 female gender Hospital (finding) History SDOH [facility] Alcohol Frequency Hospita l History SDOH [facility] Alcohol Std Drinks Hospit al History SDOH [facility] Sexual orientation [facility] History of Social 2022-08-26 2022-08-[address] function 00:00:00 00:00:00 Hospital Exposure to 2022-04-30 2022-05-10 Yes University of SARS-CoV-2 (event) 00:00:00 10:25:[address] [facility] Tobacco use and 2022-02-11 2022-02-11 Former smokeless Uni versity of exposure 00:00:00 00:00:00 [facility] Tobacco Comment 2022-02-11 2022-02-11 Smokes approx 1-2 Un iversity of 00:00:00 00:00:00 cigarettes per [facility] day when she Branch smokes Alcohol intake 2020-12-08 2020-12-08 Current drinker [facility] dist 00:00:00 00:00:00 of [facility] (finding) Cigarettes smoked 2020-09-05 2020-09-[address] current (pack per 00:00:00 00:00:00 [facility] day) - Reported Cigarette 2020-09-05 2020-09-05 [facility] pack-years 00:00:00 00:00:00 Hospital Alcohol Comment 2016-09-23 2016-09-23 rare [facility] 00:00:00 00:00:00 Hospital History of tobacco 2011-09-29 User of smokeless University of use 00:00:[address] [facility] Sex Ass[birth year] At [birth year] [facility] 00:00:00 00:00:00 Smoking Status Start Date Stop Date Source Ex-smoker 2022-02-11 00:00:00 2022-02-11 00:00:00 [facility] [place] [facility] [place] Medications Ordered Filled Start Stop Current Ordering Indication Dosage Frequency Signature Comments Components Source Medication Medication Date Date Medication? Clinician (SIG) Name Name GEOFFREY Yes [id number] Take one Univers tablet 5-08 po daily ity of 00:00: [place] 00 Medical Branch raltegravir Yes [id number] 400mg Take 1 Univers (ISENTRESS) 5-08 tablet by ity of 400 mg 00:00: mouth in [place] tablet 00 the Medical morning Branch and 1 tablet in the evening. emtricitabi Yes [id number] Take one Univers ne-tenofovi 4-04 po daily ity of r alafen 00:00: [place] (DESCOVY) 00 Medical tablet Branch emtricitabi Yes [id number] Take one Univers ne-tenofovi 4-04 po daily ity of r alafen 00:00: [place] (DESCOVY) 00 Medical tablet Branch emtricitabi 2022- No [id number] Take one Univers ne-tenofovi 4-04 05-08 po daily ity of r alafen 00:00: 00:00 [place] (DESCOVY) 00 :00 Medical tablet Branch potassium 2021-05 No 10meq 10 mEq, IV Univers chloride in 07-11 Piggyback, i ty of water 10 20:00: 22:00 ONCE, 1 [place] mEq/100 mL 00 :00 dose, On Medic al RTU 10 mEq [facility] 05/10/22 at 1400, Administer over 60 Minutes, 100 mL magnesium 2021-05- No 800mg 800 mg, Uni vers oxide 07-11 Oral, ity of (MAG-OX 20:00: 19:37 ONCE, 1 [place] 400) tablet 00 :00 dose, On Medi porfirio 800 mg [facility] 05/10/22 at 1400, Routine KCL 2021-05- No 40meq 40 mEq, Univers (KLOR-CON 07-11 Oral, ity of M20) tablet 19:15: 19:37 [place]CE, 1 [place] 40 mEq 00 :00 dose, On Medical [facility] 05/10/22 at 1315, JOE hydralAZINE 2021-05- No 10mg 10 mg, Uni vers (APRESOLINE - 12-19 Slow IV ity of ) injection 18:45: 18:42 [place] 10 mg 00 :00 ONCE, 1 Medical dose, On Branch 05/10/22 at 1245, JOE NaCl 0.9% 2021-05 No 1000mL at 999 Uni vers (NS) bolus 2-19 12-19 mL/hr, ity of infusion 17:45: 20:00 1,000 mL, [place] as 1,000 mL 00 :00 IV Medical Infusion, Branch ONCE, 1 dose, On 05/10/22 at 1145, JOE cefpodoxime 2021-05 No [id number] 100mg Take 1 Univers 100 mg 2-17 12-25 tablet by ity of tablet 00:00: 05:59 mouth in [place] 00 :00 the Medical morning Branch and 1 tablet in the evening. Do all this for 7 days. cefpodoxime 2021-05- No [id number] 100mg Take 1 Univers 100 mg 2-17 12-25 tablet by ity of tablet 00:00: 05:59 mouth in [place] 00 :00 the Medical morning Branch and 1 tablet in the evening. Do all this for 7 days. cefpodoxime 2021-05- No [id number] 100mg Take 1 Univers 100 mg 2-17 12-25 tablet by ity of tablet 00:00: 05:59 mouth in [place] 00 :00 the [...] 05/06/22 at 1600, JOE NaCl 0.9% 2021-05 1000mL at 999 Uni vers (NS) bolus [...] 05/06/22 at 1515, JOE ondansetron 2021-05 Yes [id number] 1-2 U nivers 4 mg tablet 2-15 tablets ity o f 00:00: every 8 [place] 00 hours as Medical needed for Branch nausea benzonatate 2021-05 Yes [id number] 200mg Take 1 Univers 200 mg 2-15 capsule by ity of capsule 00:00: mouth 3 [place] 00 (three) Medical times Branch daily as needed for Cough. albuterol 2021-05 Yes [id number] 2{puff} Inhale 2 Univers 90 2-15 Puffs ity of mcg/actuati 00:00: every 4 [place] on inhaler 00 (four) Medical hours as Branch needed for Wheezing or Shortness of Breath. butalbital- 2021-05 Yes [id number] 1{tbl} Take 1 Univers acetaminoph 2-15 tablet by ity of en-caff 00:00: mouth [place] 50-325-40 00 every 4 Medical mg tablet (four) Branch hours as needed (headache) . ondansetron 2021-05 Yes [id number] 1-2 U nivers 4 mg tablet 2-15 tablets ity o f 00:00: every 8 [place] 00 hours as Medical needed for Branch nausea benzonatate 2021-05 Yes [id number] 200mg Take 1 Univers 200 mg 2-15 capsule by ity of capsule 00:00: mouth 3 [place] 00 (three) Medical times Branch daily as needed for Cough. albuterol 2021-05 Yes [id number] 2{puff} Inhale 2 Univers 90 2-15 Puffs ity of mcg/actuati 00:00: every 4 [place] on inhaler 00 (four) Medical hours as Branch needed for Wheezing or Shortness of Breath. butalbital- 2021-05 Yes [id number] 1{tbl} Take 1 Univers acetaminoph 2-15 tablet by ity of en-caff 00:00: mouth [place] 50-325-40 00 every 4 Medical mg tablet (four) Branch hours as needed (headache) . ondansetron 2021-05 Yes [id number] 1-2 U nivers 4 mg tablet 2-15 tablets ity o f 00:00: every 8 [place] 00 hours as Medical needed for Branch nausea benzonatate 2021-05 Yes [id number] 200mg Take 1 Univers 200 mg 2-15 capsule by ity of capsule 00:00: mouth 3 [place] 00 (three) Medical times Branch daily as needed for Cough. albuterol 2021-05 Yes [id number] 2{puff} Inhale 2 Univers 90 2-15 Puffs ity of mcg/actuati 00:00: every 4 [place] on inhaler 00 (four) Medical hours as Branch needed for Wheezing or Shortness of Breath. butalbital- 2021-05 Yes [id number] 1{tbl} Take 1 Univers acetaminoph 2-15 tablet by ity of en-caff 00:00: mouth [place] 50-325-40 00 every 4 Medical mg tablet (four) Branch hours as needed (headache) . ondansetron 2021-05 Yes [id number] 1-2 U nivers 4 mg tablet 2-15 tablets ity o f 00:00: every 8 [place] 00 hours as Medical needed for Branch nausea benzonatate 2021-05 Yes [id number] 200mg Take 1 Univers 200 mg 2-15 capsule by ity of capsule 00:00: mouth 3 [place] 00 (three) Medical times Branch daily as needed for Cough. albuterol 2021-05 Yes [id number] 2{puff} Inhale 2 Univers 90 2-15 Puffs ity of mcg/actuati 00:00: every 4 [place] on inhaler 00 (four) Medical hours as Branch needed for Wheezing or Shortness of Breath. butalbital- 2021-05 Yes [id number] 1{tbl} Take 1 Univers acetaminoph 2-15 tablet by ity of en-caff 00:00: mouth [place] 50-325-40 00 every 4 Medical mg tablet (four) Branch hours as needed (headache) . ondansetron 2021-05 Yes [id number] 1-2 U nivers 4 mg tablet 2-15 tablets ity o f 00:00: every 8 [place] 00 hours as Medical needed for Branch nausea benzonatate 2021-05 Yes [id number] 200mg Take 1 Univers 200 mg 2-15 capsule by ity of capsule 00:00: mouth 3 [place] 00 (three) Medical times Branch daily as needed for Cough. albuterol 2021-05 Yes [id number] 2{puff} Inhale 2 Univers 90 2-15 Puffs ity of mcg/actuati 00:00: every 4 [place] on inhaler 00 (four) Medical hours as Branch needed for Wheezing or Shortness of Breath. butalbital- 2021-05 Yes [id number] 1{tbl} Take 1 Univers acetaminoph 2-15 tablet by ity of en-caff 00:00: mouth [place] 50-325-40 00 every 4 Medical mg tablet (four) Branch hours as needed (headache) . ondansetron 2021-05 Yes [id number] 1-2 U nivers 4 mg tablet 2-15 tablets ity o f 00:00: every 8 [place] 00 hours as Medical needed for Branch nausea benzonatate 2021-05 Yes [id number] 200mg Take 1 Univers 200 mg 2-15 capsule by ity of capsule 00:00: mouth 3 [place] 00 (three) Medical times Branch daily as needed for Cough. albuterol 2021-05 Yes [id number] 2{puff} Inhale 2 Univers 90 2-15 Puffs ity of mcg/actuati 00:00: every 4 [place] on inhaler 00 (four) Medical hours as Branch needed for Wheezing or Shortness of Breath. butalbital- 2021-05 Yes [id number] 1{tbl} Take 1 Univers acetaminoph 2-15 tablet by ity of en-caff 00:00: mouth [place] 50-325-40 00 every 4 Medical mg tablet (four) Branch hours as needed (headache) . ondansetron 2021-05 Yes [id number] 1-2 U nivers 4 mg tablet 2-15 tablets ity o f 00:00: every 8 [place] 00 hours as Medical needed for Branch nausea benzonatate 2021-05 Yes [id number] 200mg Take 1 Univers 200 mg 2-15 capsule by ity of capsule 00:00: mouth 3 [place] 00 (three) Medical times Branch daily as needed for Cough. albuterol 2021-05 Yes [id number] 2{puff} Inhale 2 Univers 90 2-15 Puffs ity of mcg/actuati 00:00: every 4 [place] on inhaler 00 (four) Medical hours as Branch needed for Wheezing or Shortness of Breath. butalbital- 2021-05 Yes [id number] 1{tbl} Take 1 Univers acetaminoph 2-15 tablet by ity of en-caff 00:00: mouth [place] 50-325-40 00 every 4 Medical mg tablet (four) Branch hours as needed (headache) . ondansetron 2021-05 Yes [id number] 1-2 U nivers 4 mg tablet 2-15 tablets ity o f 00:00: every 8 [place] 00 hours as Medical needed for Branch nausea benzonatate 2021-05 Yes [id number] 200mg Take 1 Univers 200 mg 2-15 capsule by ity of capsule 00:00: mouth 3 00 (three) Medical times Branch daily as needed for Cough. albuterol 2021-05 Yes [id number] 2{puff} Inhale 2 Univers 90 2-15 Puffs ity of mcg/actuati 00:00: every 4 [place] on inhaler 00 (four) Medical hours as Branch needed for Wheezing or Shortness of Breath. butalbital- 2021-05 Yes [id number] 1{tbl} Take 1 Univers acetaminoph 2-15 tablet by ity of en-caff 00:00: mouth [place] 50-325-40 00 every 4 Medical mg tablet (four) Branch hours as needed (headache) . ondansetron 2021-05 Yes [id number] 1-2 U nivers 4 mg tablet 2-15 tablets ity o f 00:00: every 8 [place] 00 hours as Medical needed for Branch nausea benzonatate 2021-05 Yes [id number] 200mg Take 1 Univers 200 mg 2-15 capsule by ity of capsule 00:00: mouth 3 [place] 00 (three) Medical times Branch daily as needed for Cough. albuterol 2021-05 Yes [id number] 2{puff} Inhale 2 Univers 90 2-15 Puffs ity of mcg/actuati 00:00: every 4 [place] on inhaler 00 (four) Medical hours as Branch needed for Wheezing or Shortness of Breath. butalbital- 2021-05 Yes [id number] 1{tbl} Take 1 Univers acetaminoph 2-15 tablet by ity of en-caff 00:00: mouth [place] 50-325-40 00 every 4 Medical mg tablet (four) Branch hours as needed (headache) . [facility] 2021-05- No [id number] 2{tbl} Take 2 Univers r-ritonavir 2-15 12-21 tablets by i ty of (PAXLOVID, 00:00: 05:59 mouth in [place] EUA,) 300 00 :00 the Medical mg (150 mg morning Branch x 2)-100 mg and 2 tablet tablets in the evening. Do all this for 5 days. nirmatrelvi 2021-05- No [id number] 2{tbl} Take 2 Univers r-ritonavir 2-15 12-21 tablets by i ty of (PAXLOVID, 00:00: 05:59 mouth [place] EUA,) 300 00 :00 the Medical mg (150 mg morning Branch x 2)-100 mg and 2 tablet tablets in the evening. Do all this for 5 days. nirmatrelvi 2021-05- No [id number] 2{tbl} Take 2 Univers r-ritonavir 2-15 12-21 tablets by i ty of (PAXLOVID, 00:00: 05:59 mouth [place] EUA,) 300 00 :00 the Medical mg (150 mg morning Branch x 2)-100 mg and 2 tablet tablets in the evening. Do all this for 5 days. nirmatrelvi 2021-05- No [id number] 2{tbl} Take 2 Univers r-ritonavir 2-15 12-21 tablets by i ty of (PAXLOVID, 00:00: 05:59 mouth in [place] EUA,) 300 00 :00 the Medical mg (150 mg morning Branch x 2)-100 mg and 2 tablet tablets in the evening. Do all this for 5 days. ondansetron 2021-05 4mg 4 mg, Univ ers (ZOFRAN-ODT 06-23 Oral, ity of ) 22:45: 21:53 ONCE, 1 [place] disintegrat 00 :00 dose, On Medi porfirio ing tablet [place] Branch 4 mg 04/22/22 at 1645, Routine amoxicillin 2021-05 Yes [id number] 1{tbl} Take 1 Univers -clavulanat 2- [id number] tablet by i ty of e 875-125 00:00: mouth [place] mg per 00 every 12 Medical tablet (twelve) Branch hours. ondansetron 2021-05 Yes [id number] 4mg Take 1 Univers 4 mg 2- [id number] tablet by ity of disintegrat 00:00: mouth [place] ing tablet 00 every 8 Medica l (eight) Branch hours as needed for Nausea and Vomiting (N/V). amoxicillin 2021-05 Yes [id number] 1{tbl} Take 1 Univers -clavulanat 2- [id number] tablet by i ty of e 875-125 00:00: mouth [place] mg per 00 every 12 Medical tablet (twelve) Branch hours. ondansetron 2021-05 Yes [id number] 4mg Take 1 Univers 4 mg 2- [id number] tablet by ity of disintegrat 00:00: mouth [place] ing tablet 00 every 8 Medica l (eight) Branch hours as needed for Nausea and Vomiting (N/V). amoxicillin 2021-05 Yes [id number] 1{tbl} Take 1 Univers -clavulanat 2-01 [id number] tablet by i ty of e 875-125 00:00: mouth [place] mg per 00 every 12 Medical tablet (twelve) Branch hours. ondansetron 2021-05 Yes [id number] 4mg Take 1 Univers 4 mg 2- [id number] tablet by ity of disintegrat 00:00: mouth [place] ing tablet 00 every 8 Medica l (eight) Branch hours as needed for Nausea and Vomiting (N/V). amoxicillin 2021-05 Yes [id number] 1{tbl} Take 1 Univers -clavulanat 2-01 [id number] tablet by i ty of e 875-125 00:00: mouth [place] mg per 00 every 12 Medical tablet (twelve) Branch hours. ondansetron 2021-05 Yes [id number] 4mg Take 1 Univers 4 mg 2- [id number] tablet by ity of disintegrat 00:00: mouth [place] ing tablet 00 every 8 Medica l (eight) Branch hours as needed for Nausea and Vomiting (N/V). amoxicillin 2021-05 Yes [id number] 1{tbl} Take 1 Univers -clavulanat 2-01 [id number] tablet by i ty of e 875-125 00:00: mouth [place] mg per 00 every 12 Medical tablet (twelve) Branch hours. ondansetron 2021-05 Yes [id number] 4mg Take 1 Univers 4 mg 2- [id number] tablet by ity of disintegrat 00:00: mouth [place] ing tablet 00 every 8 Medica l (eight) Branch hours as needed for Nausea and Vomiting (N/V). amoxicillin 2021-05 Yes [id number] 1{tbl} Take 1 Univers -clavulanat 2-01 [id number] tablet by i ty of e 875-125 00:00: mouth [place] mg per 00 every 12 Medical tablet (twelve) Branch hours. ondansetron 2021-05 Yes [id number] 4mg Take 1 Univers 4 mg 2- [id number] tablet by ity of disintegrat 00:00: mouth [place] ing tablet 00 every 8 Medica l (eight) Branch hours as needed for Nausea and Vomiting (N/V). amoxicillin 2021-05 Yes [id number] 1{tbl} Take 1 Univers -clavulanat 2-01 [id number] tablet by i ty of e 875-125 00:00: mouth [place] mg per 00 every 12 Medical tablet (twelve) Branch hours. ondansetron 2021-05 Yes [id number] 4mg Take 1 Univers 4 mg 2-01 [id number] tablet by ity of disintegrat 00:00: mouth [place] ing tablet 00 every 8 Medica l (eight) Branch hours as needed for Nausea and Vomiting (N/V). amoxicillin 2021-05 Yes [id number] 1{tbl} Take 1 Univers -clavulanat 2-01 [id number] tablet by i ty of e 875-125 00:00: mouth [place] mg per 00 every 12 Medical tablet (twelve) Branch hours. ondansetron 2021-05 Yes [id number] 4mg Take 1 Univers 4 mg 2-01 [id number] tablet by ity of disintegrat 00:00: mouth [place] ing tablet 00 every 8 Medica l (eight) Branch hours as needed for Nausea and Vomiting (N/V). amoxicillin 2021-05 Yes [id number] 1{tbl} Take 1 Univers -clavulanat 2-01 [id number] tablet by i ty of e 875-125 00:00: mouth [place] mg per 00 every 12 Medical tablet (twelve) Branch hours. ondansetron 2021-05 Yes [id number] 4mg Take 1 Univers 4 mg 2- [id number] tablet by ity of disintegrat 00:00: mouth [place] ing tablet 00 every 8 Medica l (eight) Branch hours as needed for Nausea and Vomiting (N/V). amoxicillin 2021-05 Yes [id number] 1{tbl} Take 1 Univers -clavulanat 2-01 [id number] tablet by i ty of e 875-125 00:00: mouth [place] mg per 00 every 12 Medical tablet (twelve) Branch hours. ondansetron 2021-05 Yes [id number] 4mg Take 1 Univers 4 mg 2- [id number] tablet by ity of disintegrat 00:00: mouth [place] ing tablet 00 every 8 Medica l (eight) Branch hours as needed for Nausea and Vomiting (N/V). amoxicillin 2021-05 Yes [id number] 1{tbl} Take 1 Univers -clavulanat 2-01 [id number] tablet by i ty of e 875-125 00:00: mouth [place] mg per 00 every 12 Medical tablet (twelve) Branch hours. ondansetron 2021-05 Yes [id number] 4mg Take 1 Univers 4 mg 2-01 [id number] tablet by ity of disintegrat 00:00: mouth [place] ing tablet 00 every 8 Medica l (eight) Branch hours as needed for Nausea and Vomiting (N/V). zoster 2021-05- No [id number] .5mL 0.5 mL by Univers vaccine, 0-14 10-15 9104 Intramuscu ity of recombinant 00:00: 04:59 lar route [place] (SHINGRIX, 00 :00 once now Medic al PF,) for 1 Branch injection dose. And repeat in 2-6 months zoster 2021-05- No [id number] .5mL 0.5 mL by Univers vaccine, 0-05 03-04 Intramuscu ity of recombinant 00:00: 04:59 lar route [place] (SHINGRIX, 00 :00 once now Medic al PF,) for 1 Branch injection dose. And repeat in 2-6 months zoster 2021-05- No [id number] .5mL 0.5 mL by Univers vaccine, 0-9103 Intramuscu ity of recombinant 00:00: 04:59 lar [...] o f 1 mg tablet 19:28: at [place] [address] bedtime. Medical Branch traZODone 0 Yes 50mg Take 50 mg Un matt 100 mg 9-27 by mouth ity of tablet 19:28: at [place] [address] bedtime. Medical Branch hydralAZINE Yes 25mg Take [...] o f 1 mg tablet 19:28: at [place] [address] bedtime. Medical Branch traZODone 2021-0 Yes 50mg Take 50 mg Un matt 100 mg 9-27 by mouth ity of tablet 19:28: at [place] [address] bedtime. Medical Branch hydralAZINE 2021-0 Yes 25mg [...] o f 1 mg tablet 19:28: at [place] [address] bedtime. Medical Branch traZODone 2-0 Yes 50mg Take 50 mg Un matt 100 mg 9-27 by mouth ity of tablet 19:28: at [place] [address] bedtime. Medical Branch hydralAZINE 2-0 Yes 25mg [...] o f 1 mg tablet 19:28: at [place] [address] bedtime. Medical Branch traZODone 2-0 Yes 50mg Take 50 mg Un matt 100 mg 9-27 by mouth ity of tablet 19:28: at [place] [address] bedtime. Medical Branch hydralAZINE 2021-0 Yes 25mg [...] o f 1 mg tablet 19:28: at [place] [address] bedtime. Medical Branch traZODone 2-0 Yes 50mg Take 50 mg Un matt 100 mg 9-27 by mouth ity of tablet 19:28: at [place] [address] bedtime. Medical Branch hydralAZINE 2021-0 Yes 25mg [...] o f 1 mg tablet 19:28: at [place] [address] bedtime. Medical Branch traZODone 2021-0 Yes 50mg Take 50 mg Un matt 100 mg 9-27 by mouth ity of tablet 19:28: at [place] [address] bedtime. Medical Branch hydralAZINE 2021-0 Yes 25mg [...] o f 1 mg tablet 19:28: at [place] [address] bedtime. Medical Branch traZODone 2021-0 Yes 50mg Take 50 mg Un matt 100 mg 9-27 by mouth ity of tablet 19:28: at [place] [address] bedtime. Medical Branch hydralAZINE 2021-0 Yes 25mg [...] o f 1 mg tablet 19:28: at [place] [address] bedtime. Medical Branch traZODone 2021-0 Yes 50mg Take 50 mg Un matt 100 mg 9- by mouth ity of tablet 19:28: at [place] [address] bedtime. Medical Branch hydralAZINE 2021-0 Yes 25mg [...] o f 1 mg tablet 19:28: at [place] [address] bedtime. Medical Branch traZODone 2021-0 Yes 50mg Take 50 mg Un matt 100 mg 9-27 by mouth ity of tablet 19:28: at [place] [address] bedtime. Medical Branch hydralAZINE 2021-0 Yes 25mg [...] o f 1 mg tablet 19:28: at [place] [address] bedtime. Medical Branch traZODone 2021-0 Yes 50mg Take 50 mg Un matt 100 mg 9-27 by mouth ity of tablet 19:28: at [place] [address] bedtime. Medical Branch hydralAZINE 2021-0 Yes 25mg [...] o f 1 mg tablet 19:28: at [place] [address] bedtime. Medical Branch traZODone 2021-0 Yes 50mg Take 50 mg Un matt 100 mg 9-27 by mouth ity of tablet 19:28: at [place] [address] bedtime. Medical Branch hydralAZINE 2021-0 Yes 25mg Take 25 mg Univers (APRESOLINE 9-27 by mouth ity of ) 25 mg 19:28: daily. [place] tablet 04 Medical Branch lisinopril 2021-0 Yes 40mg Take 40 mg U nivers (PRINIVIL,Z 9-27 by mouth 2 it y of ESTRIL) 40 19:28: (two) [place] mg tablet 04 times [facility] daily. Branch metoprolol 2021-0 Yes 100mg Take 100 Un matt tartrate 9-27 mg by ity of (LOPRESSOR) 19:28: mouth 2 [place] 100 mg 04 (two) Medical tablet times [place] daily. amLODIPine 2021-0 Yes 10mg Take 10 mg U nivers (NORVASC) 9-27 by mouth ity of 10 mg 19:28: daily. [place] tablet 04 Medical Branch clonazePAM 2021-0 Yes 1mg Take 1 mg Un matt (KLONOPIN) 9-27 by mouth ity o f 1 mg tablet 19:28: at [place] [address] bedtime. Medical Branch traZODone 2021-0 Yes 50mg Take 50 mg Un matt 100 mg 9-27 by mouth ity of tablet 19:28: at [place] [address] bedtime. Medical Branch hydralAZINE 2021-0 Yes 25mg [...] o f 1 mg tablet 19:28: at [place] 04 bedtime. Medical Branch traZODone 2021-0 Yes 50mg Take 50 mg Un matt 100 mg 9-27 by mouth ity of tablet 19:28: at [place] [address] bedtime. Medical Branch hydralAZINE 2021-0 Yes 25mg [...] o f 1 mg tablet 19:28: at [place] [address] bedtime. Medical Branch traZODone 2021-0 Yes 50mg Take 50 mg Un matt 100 mg 9-27 by mouth ity of tablet 19:28: at [place] [address] bedtime. Medical Branch hydralAZINE 2021-0 Yes 25mg [...] o f 1 mg tablet 19:28: at [place] [address] bedtime. Medical Branch traZODone 2021-0 Yes 50mg Take 50 mg Un matt 100 mg 9-27 by mouth ity of tablet 19:28: at [place] [address] bedtime. Medical Branch hydralAZINE 2021-0 Yes 25mg [...] 100 mg 04 (two) Medical tablet times [place] daily. amLODIPine 2-0 Yes 10mg Take 10 mg U nivers (NORVASC) 9-27 by mouth ity of 10 mg 19:28: daily. [place] tablet 04 Medical Branch clonazePAM 2021-0 Yes 1mg Take 1 mg Un matt (KLONOPIN) 9-27 by mouth ity o f 1 mg tablet 19:28: at [place] [address] bedtime. Medical Branch traZODone 2-0 Yes 50mg Take 50 mg Un matt 100 mg 9-27 by mouth ity of tablet 19:28: at [place] [address] bedtime. Medical Branch hydralAZINE 2-0 Yes 25mg [...] o f 1 mg tablet 19:28: at [place] [address] bedtime. Medical Branch traZODone 2-0 Yes 50mg Take 50 mg Un matt 100 mg 9-27 by mouth ity of tablet 19:28: at [place] [address] bedtime. Medical Branch hydralAZINE 2-0 Yes 25mg [...] 19:28: daily. tablet 04 Medical Branch clonazePAM 2-0 Yes 1mg Take 1 mg Un matt (KLONOPIN) 9-27 by mouth ity o f 1 mg tablet 19:28: at [place] [address] bedtime. Medical Branch traZODone 2022-0 Yes 50mg Take 50 mg Un matt 100 mg 9-27 by mouth ity of tablet 19:28: at [place] [address] bedtime. Medical Branch hydralAZINE 2022-0 Yes 25mg Take 25 mg [facility] (APRESOLINE 02-16 by mouth ity of ) 25 mg 19:28: daily. [place] tablet 04 Medical Branch lisinopril 0 Yes 40mg Take 40 mg U nivers (PRINIVIL,Z 02-16 by mouth 2 it y of ESTRIL) 40 19:28: (two) [place] mg tablet 04 times Medical daily. Branch metoprolol 0 Yes [...] o f 1 mg tablet 19:28: at [place] [address] bedtime. Medical Branch traZODone Yes 50mg Take 50 mg Un matt 100 mg 02-16 by mouth ity of tablet 19:28: at [place] [address] bedtime. Medical Branch cefpodoxime 2021- No [id number] 200mg Take 1 [facility] 200 mg 02-16 tablet by ity of tablet 00:00: 04:59 mouth in [place] 00 :00 the Medical morning Branch and 1 tablet in the evening. Do all this for 3 days. cefpodoxime 2021-2021- No [id number] 200mg Take 1 [facility] 200 mg 02-16 [...] 00 :00 dose, On Medi porfirio mg [facility] Branch 02/15/22 at 0400, Routine hydroCHLORO 0 Yes 25mg 25 mg, Univ ers thiazide 9-25 Oral, ity of (ESIDRIX) 14:00: DAILY, [place] capsule 25 00 First dose Med ical mg on Tue [place] 02/14/22 at 0900, Until Discontinu ed, Routine butalbital- 2021-0 Yes 1{tbl} 1 tablet, Univers acetaminoph 02-13 Oral, ity of en-caff 18:46: Q6HPRN, [place] (ESGIC) 06 Starting Medical 50-325-40 [facility] mg tablet 1 02/13/22 at tablet 1346, Until Discontinu ed, Routine, headaches dicyclomine Yes 10mg 10 mg, Univ ers (BENTYL) 02-13 Oral, QID, ity o f capsule 10 17:00: First dose [place] mg 00 on [facility] 02/13/22 at Branch 1200, Until Discontinu ed, Routine tiZANidine Yes 4mg 4 mg, Univer s (ZANAFLEX) 02-12 Oral, Q8H, ity of tablet 4 mg 19:00: First dose [place] 00 on Tue [facility] 02/12/22 at Branch 1400, Until Discontinu ed, Routine HYDROmorpho Yes 4mg 4 mg, Unive rs ne 02-12 Oral, ity of (DILAUDID) 17:37: Q6HPRN, [place] 4 mg 07 Starting Medi porfirio on Tue [place] 02/12/22 at 1237, Until Discontinu ed, Routine, Pain (scale 4-6) morpHINE (2 2021- No 2mg 2 mg, Slow Univers mg/mL) 02-12 IV Push, ity of injection 2 17:36: 20:36 Q6HPRN, [place] mg 46 :24 Starting Medical on Tue [place] 02/12/22 at 1236, Until [place] 02/14/22 at 1536, Routine, Pain (scale 7-10) [...] uration of Therapy: Other (see Comments) hydrALAZINE 2021-0 Yes 75mg 75 mg, Univ ers (APRESOLINE [...] 1700, Until Discontinu ed, Routine aspirin 0 202- No 325mg 325 mg, Unive rs [...] [place] mg 37 Starting Medical on [facility] Branch 02/11/22 at 1618, Until Discontinu [...] dose [place] tablet [address] [facility] Medical mg 02/11/22 at Branch 1300, Until Discontinu ed, Routine lisinopriL 2021-0 Yes 40mg 40 mg, Unive rs (PRINIVIL,Z 02-11 Oral, BID, it y of ESTRIL) 18:00: [place] dose [place] tablet 40 00 on [place] [facility] mg 02/11/22 at Branch 1300, Until Discontinu ed, Routine emtricitabi 2021-0 Yes 1{tbl} 1 tablet, Univers ne-tenofovi 02-11 Oral, ity of r alafen 18:00: DAILY, [place] (DESCOVY) 00 First dose Medi porfirio tablet [address] [facility] Branch tablet 02/11/22 at 1300, Until Discontinu ed, Routine ipratropium 2022-0 Yes .5mg 0.5 mg, Uni vers (ATROVENT) [...] at 1237, Routine, Pain (scale 4-6) sennosides- 2022-0 Yes 1{tbl} 1 tablet, Univers docusate 02-11 Oral, ity of sodium 14:06: QDAILYPRN, [place] (SENOKOT-S) 09 Starting Medi porfirio 8.6-50 mg [...] ity of ) 25 mg 09:10: daily. [facility] 54 Medical Branch amLODIPine 0 Yes 10mg Take 10 mg U nivers (NORVASC) 02-11 by mouth ity of 10 mg 09:10: daily. [place] tablet 54 Medical Branch piperacilli 2021-0 2021- No 3.375g 3.375 g, Univers n-tazobacta [...] of therapy: 72 hours iopamidol 2021- No [id number] 60mL 60 mL, Univers (ISOVUE 02-11 Intravenou [...] Branch 02/11/22 at 0015, JOE emtricitabi Yes [id number] Take one Univers ne-tenofovi 9-12 po daily ity of r alafen 00:00: [place] (DESCOVY) 00 Medical tablet Branch emtricitabi Yes [id number] Take one Univers ne-tenofovi 9-12 po daily ity of r alafen 00:00: [place] (DESCOVY) 00 Medical tablet Branch emtricitabi Yes [id number] Take one Univers ne-tenofovi 9-12 po daily ity of r alafen 00:00: [place] (DESCOVY) 00 Medical tablet Branch emtricita Yes [id number] Take one Univers ne-tenofovi 9-12 po daily ity of r alafen 00:00: [place] (DESCOVY) 00 Medical tablet Branch emtricita Yes [id number] Take one Univers ne-tenofovi 9-12 po daily ity of r alafen 00:00: [place] (DESCOVY) 00 Medical tablet Branch emtricitabi Yes [id number] Take one Univers ne-tenofovi 9-12 po daily ity of r alafen 00:00: [place] (DESCOVY) 00 Medical tablet Branch emtricita Yes [id number] Take one Univers ne-tenofovi 9-12 po daily ity of r alafen 00:00: [place] (DESCOVY) 00 Medical tablet Branch emtricita Yes [id number] Take one Univers ne-tenofovi 9-12 po daily ity of r alafen 00:00: [place] (DESCOVY) 00 Medical tablet Branch emtricita Yes [id number] Take one Univers ne-tenofovi 9-12 po daily ity of r alafen 00:00: [place] (DESCOVY) 00 Medical tablet Branch emtricita Yes [id number] Take one Univers ne-tenofovi 9-12 po daily ity of r alafen 00:00: [place] (DESCOVY) 00 Medical tablet Branch emtricitabi Yes [id number] Take one Univers ne-tenofovi 9-12 po daily ity of r alafen 00:00: [place] (DESCOVY) 00 Medical tablet Branch emtricitabi Yes [id number] Take one Univers ne-tenofovi 9-12 po daily ity of r alafen 00:00: [place] (DESCOVY) 00 Medical tablet Branch emtricitabi 2022-0 Yes [id number] Take one Univers ne-tenofovi 9-12 po daily ity of r alafen 00:00: [place] (DESCOVY) 00 Medical tablet Branch emtricitabi 0 Yes [id number] Take one Univers ne-tenofovi 9-12 po daily ity of r alafen 00:00: [place] (DESCOVY) 00 Medical tablet Branch emtricitabi 0 Yes [id number] Take one Univers ne-tenofovi 9-12 po daily ity of r alafen 00:00: [place] (DESCOVY) 00 Medical tablet Branch emtricitabi 0 Yes [id number] Take one Univers ne-tenofovi 9-12 po daily ity of r alafen 00:00: [place] (DESCOVY) 00 Medical tablet Branch emtricitabi Yes [id number] Take one Univers ne-tenofovi 9-12 po daily ity of r alafen 00:00: [place] (DESCOVY) 00 Medical tablet Branch emtricitabi 2023- No [id number] Take one Univers ne-tenofovi 9-12 04-04 po daily ity of r alafen 00:00: 00:00 [place] (DESCOVY) 00 :00 Medical tablet Branch emtricitabi 0 2023- No [id number] Take one Univers ne-tenofovi 9-12 04-04 po daily ity of r alafen 00:00: 00:00 [place] (DESCOVY) 00 :00 Medical tablet Branch naproxen 2021-0 Yes [id number] 500mg Take 1 U nivers (NAPROSYN) 7-24 tablet by ity of 500 mg 00:00: mouth in [place] tablet 00 the Medical morning Branch and 1 tablet in the evening. Take with meals. methocarbam 2021-0 Yes [id number] 500mg Take 1 Univers oL 500 mg 7-24 tablet by ity o f tablet 00:00: mouth 4 [place] 00 (four) Medical times Branch daily. naproxen 2021-0 Yes [id number] 500mg Take 1 U nivers (NAPROSYN) 7-24 tablet by ity of 500 mg 00:00: mouth in [place] tablet 00 the Medical morning Branch and 1 tablet in the evening. Take with meals. methocarbam 2021-0 Yes [id number] 500mg Take 1 Univers oL 500 mg 7-24 tablet by ity o f tablet 00:00: mouth 4 [place] 00 (four) Medical times Branch daily. naproxen 2021-0 Yes [id number] 500mg Take 1 U nivers (NAPROSYN) 7-24 tablet by ity of 500 mg 00:00: mouth in [place] tablet 00 the Medical morning Branch and 1 tablet in the evening. Take with meals. methocarbam 2021-0 Yes [id number] 500mg Take 1 Univers oL 500 mg 7-24 tablet by ity o f tablet 00:00: mouth 4 [place] 00 (four) Medical times Branch daily. naproxen 2021-0 2021- No [id number] 500mg Take 1 Univers (NAPROSYN) 7-24 10-14 tablet by ity of 500 mg 00:00: 00:00 mouth in [place] tablet 00 :00 the Medical morning Branch and 1 tablet in the evening. Take with meals. methocarbam 2021-0 2021- No [id number] 500mg Take 1 [facility] oL 500 mg 7-24 10-14 tablet by ity of tablet 00:00: 00:00 mouth 4 [place] 00 :00 (four) Medical times Branch daily. naproxen 2021-0 2021- No [id number] 500mg Take 1 Univers (NAPROSYN) 7-24 10-14 tablet by ity of 500 mg 00:00: 00:00 mouth in [place] tablet 00 :00 the Medical morning Branch and 1 tablet in the evening. Take with meals. methocarbam 2021-0 2021- No [id number] 500mg Take 1 Univers oL 500 mg 7-24 10-14 tablet by ity of tablet 00:00: 00:00 mouth 4 [place] 00 :00 (four) Medical times Branch daily. esomeprazol 2021-2021- No 40mg Take 40 mg Univers e (NEXIUM) 11-20 by mouth 2 it y of 40 mg 09:12: 00:00 (two) [place] capsule 03 :00 times Medical daily. Branch amiodarone 2021- No 100mg Take 100 U nivers 100 mg 11-20 mg by ity of tablet 09:11: 00:00 mouth [place] 57 :00 daily. Medical Branch apixaban 5mg Take 5 mg Uni vers (ELIQUIS) 5 11-20 by mouth 2 i ty of mg tablet 09:11: 00:00 (two) [place] 35 :00 times Medical daily. Branch traZODONE Take by [facility] ers (DESYREL) 11-20 mouth at ity o f 10 mg/mL 09:10: 00:00 bedtime. [place] oral 28 :00 Medical suspension Branch hydralAZINE Yes 25mg Take 25 mg Univers (APRESOLINE 11-20 by mouth ity of ) 25 mg 08:47: daily. [place] tablet 47 Medical Branch cephALEXin 2021- No [id number] 500mg Take 1 Univers (KEFLEX) 10-24 capsule by ity of 500 mg 00:00: 00:00 mouth 4 [place] capsule 00 :00 (four) Medical times Branch daily. acetaminoph No [id number] 1{tbl} Take 1 U nivers en-codeine 10-24 tablet by ity of (TYLENOL-CO 00:00: 00:00 mouth [place] DEINE #3) 00 :00 every 4 Medical 300-30 mg (four) Branch tablet hours as needed for Pain (scale 7-10). Indication s: acute pain buPROPion Yes [id number] 150mg Take 1 U nivers XL 4-12 tablet by ity of (WELLBUTRIN 00:00: mouth [place] XL) 150 mg 00 daily. Medical 24 hr Branch tablet busPIRone Yes [id number] 30mg Take 1 Un matt 30 mg 4-12 tablet by ity of tablet 00:00: mouth 2 [place] 00 (two) Medical times Branch daily. SERTraline Yes [id number] 200mg Take 2 Univers 100 mg 4-12 tablets by ity of tablet 00:00: mouth [place] 00 daily. Medical Branch buPROPion Yes [id number] 150mg Take 1 U nivers XL 4-12 tablet by ity of (WELLBUTRIN 00:00: mouth [place] XL) 150 mg 00 daily. Medical 24 hr Branch tablet busPIRone Yes [id number] 30mg Take 1 Un matt 30 mg 4-12 tablet by ity of tablet 00:00: mouth 2 [place] 00 (two) Medical times Branch daily. SERTraline 2021-0 Yes [id number] 200mg Take 2 Univers 100 mg 4-12 tablets by ity of tablet 00:00: mouth [place] 00 daily. Medical Branch buPROPion 2021-0 Yes [id number] 150mg Take 1 U nivers XL 4-12 tablet by ity of (WELLBUTRIN 00:00: mouth [place] XL) 150 mg 00 daily. Medical 24 hr Branch tablet busPIRone 2021-0 Yes [id number] 30mg Take 1 Un matt 30 mg 4-12 tablet by ity of tablet 00:00: mouth 2 [place] 00 (two) Medical times Branch daily. SERTraline 2021-0 Yes [id number] 200mg Take 2 Univers 100 mg 4-12 tablets by ity of tablet 00:00: mouth [place] 00 daily. Medical Branch buPROPion 2021-0 Yes [id number] 150mg Take 1 U nivers XL 4-12 tablet by ity of (WELLBUTRIN 00:00: mouth [place] XL) 150 mg 00 daily. Medical 24 hr Branch tablet busPIRone 2021-0 Yes [id number] 30mg Take 1 Un matt 30 mg 4-12 tablet by ity of tablet 00:00: mouth 2 [place] 00 (two) Medical times Branch daily. SERTraline 0 Yes [id number] 200mg Take 2 [facility] 100 mg 4-12 tablets by ity of tablet 00:00: mouth [place] 00 daily. Medical Branch buPROPion 2021-0 Yes [id number] 150mg Take 1 U nivers XL 4-12 tablet by ity of (WELLBUTRIN 00:00: mouth [place] XL) 150 mg 00 daily. Medical 24 hr Branch tablet busPIRone 2021-0 Yes [id number] 30mg Take 1 Un matt 30 mg 4-12 tablet by ity of tablet 00:00: mouth 2 [place] 00 (two) Medical times Branch daily. SERTraline 2021-0 Yes [id number] 200mg Take 2 Univers 100 mg 4-12 tablets by ity of tablet 00:00: mouth [place] 00 daily. Medical Branch buPROPion 2021-0 Yes [id number] 150mg Take 1 U nivers XL 4-12 tablet by ity of (WELLBUTRIN 00:00: mouth [place] XL) 150 mg 00 daily. Medical 24 hr Branch tablet busPIRone 2021-0 Yes [id number] 30mg Take 1 Un matt 30 mg 4-12 tablet by ity of tablet 00:00: mouth 2 [place] 00 (two) Medical times Branch daily. SERTraline 2021-0 Yes [id number] 200mg Take 2 Univers 100 mg 4-12 tablets by ity of tablet 00:00: mouth [place] 00 daily. Medical Branch buPROPion 2021-0 Yes [id number] 150mg Take 1 U nivers XL 4-12 tablet by ity of (WELLBUTRIN 00:00: mouth [place] XL) 150 mg 00 daily. Medical 24 hr Branch tablet busPIRone 2021-0 Yes [id number] 30mg Take 1 Un matt 30 mg 4-12 tablet by ity of tablet 00:00: mouth 2 (two) Medical times Branch daily. SERTraline 2021-0 Yes [id number] 200mg Take 2 Univers 100 mg 4-12 tablets by ity of tablet 00:00: mouth [place] 00 daily. Medical Branch buPROPion 2021-0 Yes [id number] 150mg Take 1 U nivers XL 4-12 tablet by ity of (WELLBUTRIN 00:00: mouth [place] XL) 150 mg 00 daily. Medical 24 hr Branch tablet busPIRone 2021-0 Yes [id number] 30mg Take 1 Un matt 30 mg 4-12 tablet by ity of tablet 00:00: mouth 2 00 (two) Medical times Branch daily. SERTraline 2021-0 Yes [id number] 200mg Take 2 Univers 100 mg 4-12 tablets by ity of tablet 00:00: mouth [place] 00 daily. Medical Branch buPROPion 2021-0 Yes [id number] 150mg Take 1 U nivers XL 4-12 tablet by ity of (WELLBUTRIN 00:00: mouth [place] XL) 150 mg 00 daily. Medical 24 hr Branch tablet busPIRone 2021-0 Yes [id number] 30mg Take 1 Un matt 30 mg 4-12 tablet by ity of tablet 00:00: mouth 2 00 (two) Medical times Branch daily. SERTraline 2021-0 Yes [id number] 200mg Take 2 Univers 100 mg 4-12 tablets by ity of tablet 00:00: mouth [place] 00 daily. Medical Branch buPROPion 2021-0 Yes [id number] 150mg Take 1 U nivers XL 4-12 tablet by ity of (WELLBUTRIN 00:00: mouth [place] XL) 150 mg 00 daily. Medical 24 hr Branch tablet busPIRone 2021-0 Yes [id number] 30mg Take 1 Un matt 30 mg 4-12 tablet by ity of tablet 00:00: mouth 2 [place] 00 (two) Medical times Branch daily. SERTraline 2021-0 Yes [id number] 200mg Take 2 Univers 100 mg 4-12 tablets by ity of tablet 00:00: mouth [place] 00 daily. Medical Branch buPROPion 2021-0 Yes [id number] 150mg Take 1 U nivers XL 4-12 tablet by ity of (WELLBUTRIN 00:00: mouth [place] XL) 150 mg 00 daily. Medical 24 hr Branch tablet busPIRone 2021-0 Yes [id number] 30mg Take 1 Un matt 30 mg 4-12 tablet by ity of tablet 00:00: mouth 2 [place] 00 (two) Medical times Branch daily. SERTraline 2021-0 Yes [id number] 200mg Take 2 Univers 100 mg 4-12 tablets by ity of tablet 00:00: mouth [place] 00 daily. Medical Branch buPROPion 2021-0 Yes [id number] 150mg Take 1 U nivers XL 4-12 tablet by ity of (WELLBUTRIN 00:00: mouth [place] XL) 150 mg 00 daily. Medical 24 hr Branch tablet busPIRone 2021-0 Yes [id number] 30mg Take 1 Un matt 30 mg 4-12 tablet by ity of tablet 00:00: mouth 2 [place] 00 (two) Medical times Branch daily. SERTraline 2021-0 Yes [id number] 200mg Take 2 Univers 100 mg 4-12 tablets by ity of tablet 00:00: mouth [place] 00 daily. Medical Branch buPROPion 2021-0 Yes [id number] 150mg Take 1 U nivers XL 4-12 tablet by ity of (WELLBUTRIN 00:00: mouth [place] XL) 150 mg 00 daily. Medical 24 hr Branch tablet busPIRone 2021-0 Yes [id number] 30mg Take 1 Un matt 30 mg 4-12 tablet by ity of tablet 00:00: mouth 2 [place] 00 (two) Medical times Branch daily. SERTraline 2021-0 Yes [id number] 200mg Take 2 [facility] 100 mg 4-12 tablets by ity of tablet 00:00: mouth [place] 00 daily. Medical Branch buPROPion 2021-0 Yes [id number] 150mg Take 1 U nivers XL 4-12 tablet by ity of (WELLBUTRIN 00:00: mouth [place] XL) 150 mg 00 daily. Medical 24 hr Branch tablet busPIRone 2021-0 Yes [id number] 30mg Take 1 Un matt 30 mg 4-12 tablet by ity of tablet 00:00: mouth 2 [place] 00 (two) Medical times Branch daily. SERTraline 2021-0 Yes [id number] 200mg Take 2 [facility] 100 mg 4-12 tablets by ity of tablet 00:00: mouth [place] 00 daily. Medical Branch buPROPion 2021-0 Yes [id number] 150mg Take 1 U nivers XL 4-12 tablet by ity of (WELLBUTRIN 00:00: mouth [place] XL) 150 mg 00 daily. Medical 24 hr Branch tablet busPIRone 2021-0 Yes [id number] 30mg Take 1 Un matt 30 mg 4-12 tablet by ity of tablet 00:00: mouth 2 00 (two) Medical times Branch daily. SERTraline 2021-0 Yes [id number] 200mg Take 2 [facility] 100 mg 4-12 tablets by ity of tablet 00:00: mouth [place] 00 daily. Medical Branch buPROPion 2021-0 Yes [id number] 150mg Take 1 U nivers XL 4-12 tablet by ity of (WELLBUTRIN 00:00: mouth [place] XL) 150 mg 00 daily. Medical 24 hr Branch tablet busPIRone 2021-0 Yes [id number] 30mg Take 1 Un matt 30 mg 4-12 tablet by ity of tablet 00:00: mouth 2 [place] 00 (two) Medical times Branch daily. SERTraline 2021-0 Yes [id number] 200mg Take 2 [facility] 100 mg 4-12 tablets by ity of tablet 00:00: mouth [place] 00 daily. Medical Branch buPROPion 2021-0 Yes [id number] 150mg Take 1 U nivers XL 4-12 tablet by ity of (WELLBUTRIN 00:00: mouth [place] XL) 150 mg 00 daily. Medical 24 hr Branch tablet busPIRone 2021-0 Yes [id number] 30mg Take 1 Un matt 30 mg 4-12 tablet by ity of tablet 00:00: mouth 2 [place] 00 (two) Medical times Branch daily. SERTraline 2021-0 Yes [id number] 200mg Take 2 [facility] 100 mg 4-12 tablets by ity of tablet 00:00: mouth [place] 00 daily. Medical Branch buPROPion 2021-0 Yes [id number] 150mg Take 1 U nivers XL 4-12 tablet by ity of (WELLBUTRIN 00:00: mouth [place] XL) 150 mg 00 daily. Medical 24 hr Branch tablet busPIRone 2021-0 Yes [id number] 30mg Take 1 Un matt 30 mg 4-12 tablet by ity of tablet 00:00: mouth 2 [place] 00 (two) Medical times Branch daily. SERTraline 2021-0 Yes [id number] 200mg Take 2 [facility] 100 mg 4-12 tablets by ity of tablet 00:00: mouth [place] 00 daily. Medical Branch buPROPion 2021-0 Yes [id number] 150mg Take 1 U nivers XL 4-12 tablet by ity of (WELLBUTRIN 00:00: mouth [place] XL) 150 mg 00 daily. Medical 24 hr Branch tablet busPIRone 2021-0 Yes [id number] 30mg Take 1 Un matt 30 mg 4-12 tablet by ity of tablet 00:00: mouth 2 [place] 00 (two) Medical times Branch daily. SERTraline 2021-0 Yes [id number] 200mg Take 2 [facility] 100 mg 4-12 tablets by ity of tablet 00:00: mouth [place] 00 daily. Medical Branch buPROPion 2021-0 Yes [id number] 150mg Take 1 U nivers XL 4-12 tablet by ity of (WELLBUTRIN 00:00: mouth [place] XL) 150 mg 00 daily. Medical 24 hr Branch tablet busPIRone 2021-0 Yes [id number] 30mg Take 1 Un matt 30 mg 4-12 tablet by ity of tablet 00:00: mouth 2 [place] 00 (two) Medical times Branch daily. SERTraline 2021-0 Yes [id number] 200mg Take 2 [facility] 100 mg 4-12 tablets by ity of tablet 00:00: mouth [place] 00 daily. Medical Branch buPROPion 2021-0 Yes [id number] 150mg Take 1 U nivers XL 4-12 tablet by ity of (WELLBUTRIN 00:00: mouth [place] XL) 150 mg 00 daily. Medical 24 hr Branch tablet busPIRone 2021-0 Yes [id number] 30mg Take 1 Un matt 30 mg 4-12 tablet by ity of tablet 00:00: mouth 2 [place] 00 (two) Medical times Branch daily. SERTraline 2021-0 Yes [id number] 200mg Take 2 [facility] 100 mg 4-12 tablets by ity of tablet 00:00: mouth [place] 00 daily. Medical Branch raltegravir 2021-0 Yes [id number] 400mg Take 1 Univers (ISENTRESS) 3-28 tablet by ity of 400 mg 00:00: mouth 2 [place] tablet 00 (two) Medical times Branch daily. raltegravir 2021-0 Yes [id number] 400mg Take 1 [facility] (ISENTRESS) 3-28 tablet by ity of 400 mg 00:00: mouth 2 [place] tablet 00 (two) Medical times Branch daily. raltegravir 2021-0 Yes [id number] 400mg Take 1 [facility] (ISENTRESS) 3-28 tablet by ity of 400 mg 00:00: mouth 2 [place] tablet 00 (two) Medical times Branch daily. raltegravir 2021-0 Yes [id number] 400mg Take 1 Univers (ISENTRESS) 3-28 tablet by ity of 400 mg 00:00: mouth 2 [place] tablet 00 (two) Medical times Branch daily. raltegravir 2021-0 Yes [id number] 400mg Take 1 [facility] (ISENTRESS) 3-28 tablet by ity of 400 mg 00:00: mouth 2 [place] tablet 00 (two) Medical times Branch daily. raltegravir 2021-0 Yes [id number] 400mg Take 1 Univers (ISENTRESS) 3-28 tablet by ity of 400 mg 00:00: mouth 2 [place] tablet 00 (two) Medical times Branch daily. raltegravir 2021-0 Yes [id number] 400mg Take 1 [facility] (ISENTRESS) 3-28 tablet by ity of 400 mg 00:00: mouth 2 [place] tablet 00 (two) Medical times Branch daily. raltegravir 2021-0 Yes [id number] 400mg Take 1 Univers (ISENTRESS) 3-28 tablet by ity of 400 mg 00:00: mouth 2 [place] tablet 00 (two) Medical times Branch daily. raltegravir 2022-0 Yes [id number] 400mg Take 1 Univers (ISENTRESS) 3-28 tablet by ity of 400 mg 00:00: mouth 2 [place] tablet 00 (two) Medical times Branch daily. raltegravir 2022-0 Yes [id number] 400mg Take 1 Univers (ISENTRESS) 3-28 tablet by ity of 400 mg 00:00: mouth 2 [place] tablet 00 (two) Medical times Branch daily. raltegravir 2022-0 Yes [id number] 400mg Take 1 Univers (ISENTRESS) 3-28 tablet by ity of 400 mg 00:00: mouth 2 [place] tablet 00 (two) Medical times Branch daily. raltegravir 2022-0 Yes [id number] 400mg Take 1 Univers (ISENTRESS) 3-28 tablet by ity of 400 mg 00:00: mouth 2 [place] tablet 00 (two) Medical times Branch daily. raltegravir 2-0 Yes [id number] 400mg Take 1 Univers (ISENTRESS) 3-28 tablet by ity of 400 mg 00:00: mouth 2 [place] tablet 00 (two) Medical times Branch daily. raltegravir 2022-0 Yes [id number] 400mg Take 1 Univers (ISENTRESS) 3-28 tablet by ity of 400 mg 00:00: mouth 2 [place] tablet 00 (two) Medical times Branch daily. raltegravir 2022-0 Yes [id number] 400mg Take 1 Univers (ISENTRESS) 3-28 tablet by ity of 400 mg 00:00: mouth 2 [place] tablet 00 (two) Medical times Branch daily. raltegravir 2022-0 Yes [id number] 400mg Take 1 Univers (ISENTRESS) 3-28 tablet by ity of 400 mg 00:00: mouth 2 [place] tablet 00 (two) Medical times Branch daily. raltegravir 2022-0 Yes [id number] 400mg Take 1 Univers (ISENTRESS) 3-28 tablet by ity of 400 mg 00:00: mouth 2 [place] tablet 00 (two) Medical times Branch daily. raltegravir 2022-0 Yes [id number] 400mg Take 1 Univers (ISENTRESS) 3-28 tablet by ity of 400 mg 00:00: mouth 2 [place] tablet 00 (two) Medical times Branch daily. raltegravir 2021- Yes [id number] 400mg Take 1 Univers (ISENTRESS) 3-28 tablet by ity of 400 mg 00:00: mouth 2 [place] tablet 00 (two) Medical times Branch daily. raltegravir Yes [id number] 400mg Take 1 [facility] (ISENTRESS) 3-28 tablet by ity of 400 mg 00:00: mouth 2 [place] tablet 00 (two) Medical times Branch daily. raltegravir 2022- No [id number] 400mg Take 1 [facility] (ISENTRESS) 3-28 05-08 tablet by it y of 400 mg 00:00: 00:00 mouth 2 [place] tablet 00 :00 (two) Medical times Branch daily. LORazepam 1 2021- No [id number] 1mg Take 1 [facility] mg tablet 3- 07- tablet by ity of 00:00: 00:00 [...] times a tablet day. emtricitabi 2021- No [id number] Take one [facility] ne-tenofovi 1-20 09-12 po daily ity of r alafen 00:00: 00:00 [place] (DESCOVY) 00 :00 Medical tablet Branch metoprolol 0 Yes [id number] Take 1 [facility] tartrate 7-26 tablet [facility] (Lopressor) 00:00: (100 mg 100 MG 00 total) by tablet mouth 2 (two) times a day AND 0.5 tablets (50 mg total) every night. metoprolol Yes [id number] Take 1 [facility] tartrate 7-26 tablet [facility] [...] (affected area in groin) hydrALAZINE Yes 50mg Q.54888813 Take 50 mg [facility] (APRESOLINE 7-19 [id number] mouth 3 [address] ) 50 MG [...] area in groin) hydrALAZINE 0 Yes 50mg Q.25738949 Take 50 mg [facility] (APRESOLINE 7-19 [id number] [address] mouth 3 st ) 50 MG [...] area in groin) hydrALAZINE 0 Yes 50mg Q.[id number] Take 50 mg [facility] (APRESOLINE 7-19 [id number] [address] mouth 3 st ) 50 MG [...] (affected area in groin) hydrALAZINE Yes 50mg Q.40988810 Take 50 mg [facility] (APRESOLINE 7-19 [id number] by mouth 3 st ) 50 MG [...] area in groin) hydrALAZINE 0 Yes 50mg Q.[id number] Take 50 mg [facility] (APRESOLINE 7-19 [id number] mouth 3 st ) 50 MG [...] area in groin) hydrALAZINE 2020-0 Yes 50mg Q.64873469 Take 50 mg [facility] (APRESOLINE 7-19 [id number] by mouth 3 st ) 50 MG [...] (affected area in groin) hydrALAZINE Yes 50mg Q.34458310 Take 50 mg [facility] (APRESOLINE 7-19 [id number] [address] mouth 3 st ) 50 MG [...] area in groin) hydrALAZINE 0 Yes 50mg Q.69875660 Take 50 mg [facility] (APRESOLINE 7-19 [id number] mouth 3 st ) 50 MG [...] area in groin) hydrALAZINE 0 Yes 50mg Q.18625005 Take 50 mg [facility] (APRESOLINE 7-[id number] [address] mouth 3 [address] ) 50 MG [...] (affected area in groin) hydrALAZINE Yes 50mg Q.08710523 Take 50 mg [facility] (APRESOLINE 7-[address] [id number] [address] mouth 3 st ) 50 MG [...] area in groin) hydrALAZINE 0 Yes 50mg Q.27594830 Take 50 mg [facility] (APRESOLINE 7-19 [id number] [address] mouth 3 st ) 50 MG [...] Take 2 mg [facility] (ATIVAN) [address] MG tablet 10:51: nightly as [facility] 25 needed for l anxiety. sertraline 0 Yes 200mg QD Take 200 [facility] (ZOLOFT) 7-[address] 100 MG 10:51: mouth [facility] tablet 25 daily. l clobetasol 2020-0 Yes Q.5D Apply 1 [facility] (TEMOVATE) [address] 0.05 % 10:51: n [facility] ointment 25 topically l 2 (two) times a day. (affected area in groin) hydrALAZINE 2020-0 Yes 50mg Q.[id number] Take 50 mg [facility] (APRESOLINE 7-19 [id number] by mouth 3 st ) 50 MG [...] area in groin) hydrALAZINE 0 Yes 50mg Q.53636234 Take 50 mg [facility] (APRESOLINE 7-19 [id number] mouth 3 st ) 50 MG [...] (affected area in groin) hydrALAZINE Yes 50mg Q.11552992 Take 50 mg [facility] (APRESOLINE 7-19 [id number] mouth 3 st ) 50 MG [...] (affected area in groin) hydrALAZINE Yes 50mg Q.[id number] Take 50 mg [facility] (APRESOLINE 7-19 [id number] [address] mouth 3 st ) 50 MG [...] area in groin) hydrALAZINE 0 Yes 50mg Q.58361228 Take 50 mg [facility] (APRESOLINE 7-[id number] mouth 3 [address] ) 50 MG [...] (affected area in groin) hydrALAZINE Yes 50mg Q.43359066 Take 50 mg [facility] (APRESOLINE 7-[id number] mouth 3 [address] ) 50 MG [...] (affected area in groin) hydrALAZINE Yes 50mg Q.94827888 Take 50 mg [facility] (APRESOLINE 7-19 [id number] mouth 3 st ) 50 MG [...] area in groin) hydrALAZINE 0 Yes 50mg Q.95572128 Take 50 mg [facility] (APRESOLINE 7-19 [id number] mouth 3 st ) 50 MG [...] (affected area in groin) hydrALAZINE Yes 50mg Q.[id number] Take 50 mg [facility] (APRESOLINE 7-[id number] mouth 3 st ) 50 MG [...] (affected area in groin) hydrALAZINE Yes 50mg Q.[id number] Take 50 mg [facility] (APRESOLINE 7-[id number] mouth 3 [address] ) 50 MG [...] (affected area in groin) hydrALAZINE Yes 50mg Q.92764413 Take 50 mg [facility] (APRESOLINE 7-19 [id number] by mouth 3 st ) 50 MG [...] area in groin) hydrALAZINE 0 Yes 50mg Q.37640837 Take 50 mg [facility] (APRESOLINE 7-19 [id number] mouth 3 st ) 50 MG [...] (affected area in groin) hydrALAZINE Yes 50mg Q.64603796 Take 50 mg [facility] (APRESOLINE 7-19 [id number] [address] mouth 3 st ) 50 MG [...] area in groin) hydrALAZINE 0 Yes 50mg Q.25870312 Take 50 mg [facility] (APRESOLINE 7-19 [id number] by mouth 3 st ) 50 MG [...] area in groin) hydrALAZINE 0 Yes 50mg Q.62415138 Take 50 mg [facility] (APRESOLINE 7-19 [id number] by mouth 3 st ) 50 MG [...] (affected area in groin) hydrALAZINE Yes 50mg Q.78930544 Take 50 mg [facility] (APRESOLINE 7-[id number] mouth 3 [address] ) 50 MG [...] area in groin) hydrALAZINE 0 Yes 50mg Q.[id number] Take 50 mg [facility] (APRESOLINE 7-19 [id number] mouth 3 [address] ) 50 MG [...] area in groin) hydrALAZINE 2020-0 Yes 50mg Q.58272364 Take 50 mg [facility] (APRESOLINE 7-[id number] mouth 3 [address] ) 50 MG [...] (affected area in groin) hydrALAZINE Yes 50mg Q.08309717 Take 50 mg [facility] (APRESOLINE 7-19 [id number] mouth 3 st ) 50 MG [...] (affected area in groin) hydrALAZINE Yes 50mg Q.14269923 Take 50 mg [facility] (APRESOLINE 7-19 [id number] mouth 3 [address] ) 50 MG [...] area in groin) hydrALAZINE 0 Yes 50mg Q.69183918 Take 50 mg [facility] (APRESOLINE 7-19 [id number] [address] mouth 3 st ) 50 MG [...] (affected area in groin) hydrALAZINE Yes 50mg Q.78260652 Take 50 mg [facility] (APRESOLINE 7-[id number] mouth 3 [address] ) 50 MG [...] (affected area in groin) hydrALAZINE Yes 50mg Q.66749536 Take 50 mg [facility] (APRESOLINE 7-19 [id number] [address] mouth 3 st ) 50 MG [...] area in groin) hydrALAZINE 0 Yes 50mg Q.43054060 Take 50 mg [facility] (APRESOLINE 7-[id number] mouth 3 [address] ) 50 MG [...] (affected area in groin) hydrALAZINE Yes 50mg Q.49511845 Take 50 mg [facility] (APRESOLINE 7-19 [id number] by mouth 3 st ) 50 MG [...] (affected area in groin) hydrALAZINE Yes 50mg Q.[id number] Take 50 mg [facility] (APRESOLINE 7-[id number] mouth 3 [address] ) 50 MG [...] Yes Q.5D Apply 1 Meth jason (TEMOVATE) - applicatio st 0.05 % 10:51: n [facility] ointment 25 topically l 2 (two) times a day. (affected area in groin) hydrALAZINE 0 Yes 50mg Q.58382108 Take 50 mg [facility] (APRESOLINE - [id number] by mouth 3 st ) 50 MG [...] area in groin) hydrALAZINE 0 Yes 50mg Q.98173230 Take 50 mg [facility] (APRESOLINE 7-[address] [id number] mouth 3 st ) 50 MG [...] (affected area in groin) hydrALAZINE Yes 50mg Q.[id number] Take 50 mg [facility] (APRESOLINE 7-[id number] mouth 3 st ) 50 MG [...] area in groin) hydrALAZINE 0 Yes 50mg Q.92638584 Take 50 mg [facility] (APRESOLINE 7-19 [id number] by mouth 3 st ) 50 MG [...] area in groin) hydrALAZINE 2021-0 Yes 50mg Q.44685153 Take 50 mg [facility] (APRESOLINE 7-[id number] mouth 3 [address] ) 50 MG [...] area in groin) hydrALAZINE 0 Yes 50mg Q.40794862 Take 50 mg [facility] (APRESOLINE 7-[id number] mouth 3 [address] ) 50 MG [...] area in groin) hydrALAZINE 0 Yes 50mg Q.06611590 Take 50 mg [facility] (APRESOLINE 7-19 [id number] mouth 3 st ) 50 MG [...] area in groin) hydrALAZINE 0 Yes 50mg Q.[id number] Take 50 mg [facility] (APRESOLINE 7-[id number] mouth 3 [address] ) 50 MG [...] (affected area in groin) hydrALAZINE Yes 50mg Q.[id number] Take 50 mg [facility] (APRESOLINE 7-19 [id number] mouth 3 st ) 50 MG [...] 1{appli Q.5D Apply 1 M [facility] (TEMOVATE) 7- cation} applicatio st 0.05 % 10:51: n [facility] ointment 25 topically l 2 (two) times a day. (affected area in groin) hydrALAZINE Yes 50mg Q.[id number] Take 50 mg [facility] (APRESOLINE - [id number] by mouth 3 st ) 50 MG [...] [facility]osp[facility] tablet 25 l nystatin-tr 2020-0 Yes [id number] Apply to [facility] iainolone 7-06 area(s) 3 ity of cream 00:00: (three) [place] 00 times Medical daily. Branch nystatin-tr 2021-0 Yes [id number] Apply to [facility] iainolone 7-06 area(s) 3 ity of cream 00:00: (three) [place] 00 times Medical daily. Branch nystatin-tr 2021-0 Yes [id number] Apply to [facility] iamcinolone 7-06 area(s) 3 ity of cream 00:00: (three) [place] 00 times Medical daily. Branch nystatin-tr 2021-0 Yes [id number] Apply to [facility] iamcinolone 7-06 area(s) 3 ity of cream 00:00: (three) [place] 00 times Medical daily. Branch nystatin-tr 2021-0 Yes [id number] Apply to [facility] iamcinolone 7-06 area(s) 3 ity of cream 00:00: (three) [place] 00 times Medical daily. Branch nystatin-tr 2021-0 Yes [id number] Apply to [facility] iamcinolone 7-06 area(s) 3 ity of cream 00:00: (three) [place] 00 times Medical daily. Branch nystatin-tr 2021-0 Yes [id number] Apply to [facility] iamcinolone 7-06 area(s) 3 ity of cream 00:00: (three) [place] 00 times Medical daily. Branch nystatin-tr 2021-0 Yes [id number] Apply to [facility] iamcinolone 7-06 area(s) 3 ity of cream 00:00: (three) [place] 00 times Medical daily. Branch nystatin-tr 2021-0 Yes [id number] Apply to [facility] iamcinolone 7-06 area(s) 3 ity of cream 00:00: (three) [place] 00 times Medical daily. Branch nystatin-tr 2021-0 Yes [id number] Apply to [facility] iamcinolone 7-06 area(s) 3 ity of cream 00:00: (three) [place] 00 times Medical daily. Branch nystatin-tr 2021-0 Yes [id number] Apply to [facility] iamcinolone 7-06 area(s) 3 ity of cream 00:00: (three) [place] 00 times Medical daily. Branch nystatin-tr 2021-0 Yes [id number] Apply to [facility] iamcinolone 7-06 area(s) 3 ity of cream 00:00: (three) [place] 00 times Medical daily. Branch nystatin-tr 2021-0 Yes [id number] Apply to [facility] iamcinolone 7-06 area(s) 3 ity of cream 00:00: (three) [place] 00 times Medical daily. Branch nystatin-tr 2021-0 Yes [id number] Apply to [facility] iamcinolone 7-06 area(s) 3 ity of cream 00:00: (three) [place] 00 times Medical daily. Branch nystatin-tr 2021-0 Yes [id number] Apply to [facility] iamcinolone 7-06 area(s) 3 ity of cream 00:00: (three) [place] 00 times Medical daily. Branch nystatin-tr 2021-0 Yes [id number] Apply to [facility] iamcinolone 7-06 area(s) 3 ity of cream 00:00: (three) [place] 00 times Medical daily. Branch nystatin-tr 2021-0 Yes [id number] Apply to [facility] iamcinolone 7-06 area(s) 3 ity of cream 00:00: (three) [place] 00 times Medical daily. Branch nystatin-tr 2020-0 Yes [id number] Apply to [facility] iainolone 7-06 area(s) 3 ity of cream 00:00: (three) [place] 00 times Medical daily. Branch nystatin-tr 2020-0 Yes [id number] Apply to [facility] iamcinolone 7-06 area(s) 3 ity of cream 00:00: (three) [place] 00 times Medical daily. Branch nystatin-tr 2020-0 Yes [id number] Apply to [facility] iamcinolone 7-06 area(s) 3 ity of cream 00:00: (three) [place] 00 times Medical daily. Branch nystatin-tr 2020-0 Yes [id number] Apply to [facility] iainolone 7-06 area(s) 3 ity of cream 00:00: (three) [place] 00 times Medical daily. Branch budesonide- 2020- No 1{puff} QD Inhale 1 [facility] formoteroL 6-25 06-[address] (SYMBICORT) 14:37: 00:00 morning. H [facility]spita 160-4.5 02 :00 l mcg/actuati on inhaler hydrALAZINE Yes [id number] 50mg Q.[id number] Take 1 [facility] (Apresoline 6-11 [id number] tablet (50 Health ) 50 MG 00:00: 3D mg total) tablet 00 by mouth 3 (three) times a day. hydrALAZINE Yes [id number] 50mg Q.[id number] Take 1 [facility] (Apresoline 6-11 [id number] tablet (50 Health ) 50 MG 00:00: [...] % 00:00: ointment 00 nystatin 2020- No [id number] Q.25D Take 5 mL [facility] (MYCOSTATIN 10-06 [...] (one) time tablet 00 each day. clobetasol 2021-0 Yes 1{appli Q12H Apply 1 U T [...] e 4-10 Tablet l 14:00: should not [place] 00 be chewed or crushed. (Same as: Protonix) Amiodarone No Notes: Memor ia 4-10 (Same as: l 14:00: Cordarone) [place] 00 Amlodipine No Notes: Memor ia 4-10 (Same as: l 14:00: Norvasc) [place] 00 emtricitabi No Notes: Caesar lisa ne 200 MG / 4-10 (Same as: l tenofovir 14:00: Descovy) Herm ariel alafenamide 00 Non-formul 25 MG Oral nancy Tablet [Descovy] Sertraline No Notes: Memor ia 4-10 (Same as: l 14:00: Zoloft) [place] Sertraline No Notes: Memor ia 4-10 (Same as: l 14:00: Zoloft) [place] pantoprazol No Notes: Caesar lisa e 4-10 Tablet l 14:00: should not [place] 00 be chewed or crushed. (Same as: Protonix) Amiodarone No Notes: Memor ia 4-10 (Same as: l 14:00: Cordarone) [place] 00 Amlodipine No Notes: Memor ia [...] ia 4-10 (Same as: l 14:00: Cordarone) [place] Amlodipine No Notes: Memor ia 4-10 [...] ia 4-10 (Same as: l 14:00: Cordarone) [place] Amlodipine No Notes: Memor ia 4-10 (Same as: l 14:00: Norvasc) [place] emtricitabi No Notes: Caesar lisa ne 200 MG / 4-10 (Same as: l tenofovir 14:00: Descovy) Herm ariel alafenamide 00 Non-formul 25 MG Oral nancy Tablet [Descovy] Sertraline No Notes: Memor ia 4-10 (Same as: l 14:00: Zoloft) [place] pantoprazol No Notes: Caesar lisa e 4-10 Tablet l 14:00: should not [place] 00 be chewed or crushed. (Same as: Protonix) Amiodarone No Notes: Memor ia 4-10 (Same as: l 14:00: Cordarone) [place] Amlodipine No Notes: Memor ia 4-10 (Same as: l 14:00: Norvasc) [place] emtricitabi No Notes: Caesar lisa ne 200 MG / 4-10 (Same as: l tenofovir 14:00: Descovy) Herm ariel alafenamide 00 Non-formul 25 MG Oral nancy Tablet [Descovy] Sertraline No Notes: Memor ia 4-10 (Same as: l 14:00: Zoloft) [place] pantoprazol No Notes: Ceasar lisa e 4-10 Tablet l 14:00: should not [place] 00 be chewed or crushed. (Same as: Protonix) Amiodarone No Notes: Memor ia 4-10 (Same as: l 14:00: Cordarone) [place] 00 Amlodipine No Notes: Memor ia [...] e 4-10 Tablet l 14:00: should not [place] 00 be chewed or crushed. (Same as: Protonix) Amiodarone No Notes: Memor ia 4-10 (Same as: l 14:00: Cordarone) [place] 00 Sucralfate No Notes: May M emoria 4-10 interfere l 02:00: w/enteral [place] 00 feeds - Take 1 hr before or 2 hr after antacids, dairy pdt, meals & minerals - On empty stomach. For patients unable to swallow tablet, dissolve in 10mL - 30mL of water or juice and stir before giving. (Same As: Carafate) Saline No Notes: Memoria Flush 0.9% 4-10 (Same as: l 02:00: BD [place] Posiflush) Eliquis No Notes: Memoria 4-10 Same as: l 02:00: Eliquis [place] 00 Hydralazine No Notes: Caesar lisa Hydrochlori 4-10 (Same as: l de 50 MG 02:00: Apresoline Her mitchell Oral Tablet 00 ) May interfere w/enteral feedings Take With Food Sucralfate No Notes: May M emoria 4-10 interfere l 02:00: w/enteral [place] 00 feeds - Take 1 hr before or 2 hr after antacids, dairy pdt, meals & minerals - On empty stomach. For patients unable to swallow tablet, dissolve in 10mL - 30mL of water or juice and stir before giving. (Same As: Carafate) Saline No Notes: Memoria Flush 0.9% 4-10 (Same as: l 02:00: BD [place] Posiflush) Eliquis No Notes: Memoria 4-10 [...] 0.9% 4-10 (Same as: l 02:00: BD [place] 00 Posiflush) Eliquis No Notes: Memoria 4-10 Same as: l 02:00: Eliquis [place] 00 Hydralazine No Notes: Caesar ilsa Hydrochlori 4-10 (Same as: l de 50 MG 02:00: Apresoline Her mitchell Oral Tablet 00 ) May interfere w/enteral feedings Take With Food Sucralfate No Notes: May M emoria 4-10 interfere l 02:00: w/enteral [place] 00 feeds - Take 1 hr [...] 0.9% 4-10 (Same as: l 02:00: BD [place] 00 Posiflush) Eliquis No Notes: Memoria 4-10 Same as: l 02:00: Eliquis [place] 00 Hydralazine No Notes: Caesar lisa Hydrochlori 4-10 (Same as: l de 50 MG 02:00: Apresoline Her mit[place] Oral Tablet 00 ) May interfere w/enteral feedings Take With Food Sucralfate No Notes: May M emoria 4-10 interfere l 02:00: w/enteral [place] 00 feeds - Take 1 hr [...] Memoria 4-10 Same as: l 02:00: Eliquis [place] Hydralazine No Notes: Caesar lisa Hydrochlori 4-10 [...] Memoria 4-10 Same as: l 02:00: Eliquis [place] 00 Hydralazine No Notes: Caesar lisa [...] not exceed l #3 00:12: 4gm/day of [place] acetaminop hen. (Same as: Tylenol with Codeine # 3) acetaminoph No Notes: Do M emoria en-codeine 4-10 not exceed l #3 00:12: 4gm/day of [place] acetaminop hen. (Same as: Tylenol with Codeine # 3) acetaminoph No Notes: Do M emoria en-codeine 4-10 not exceed l #3 00:12: 4gm/day of [place] acetaminop hen. (Same as: Tylenol with Codeine # 3) acetaminoph No Notes: Do M emoria en-codeine 4-10 not exceed l #3 00:12: 4gm/day of [place] acetaminop hen. (Same as: Tylenol with Codeine # 3) acetaminoph No Notes: Do M emoria en-codeine 4-10 not exceed l #3 00:12: 4gm/day of [place] 00 acetaminop hen. (Same as: Tylenol with Codeine # 3) acetaminoph No Notes: Do M emoria en-codeine 4-10 not exceed l #3 00:12: 4gm/day of [place] acetaminop hen. (Same as: Tylenol with Codeine # 3) Buspirone No Notes: Memori a 4-09 (Same As: l 22:00: BuSpar) [place] Lisinopril 2020-0 No 40 mg, 1 Mem oria 4-09 tab, l 22:00: Route: PO, [place] 00 Drug form: TAB, BID, Dosing [...] PO, [place] Drug form: TAB, BID, Dosing Weight 97.273, [...] 0 Buspirone 1-0 No Notes: Memori a -09 (Same As: l 22:00: BuSpar) Lisinopril 1-0 No 40 mg, 1 Mem oria 4-09 tab, l 22:00: Route: PO, [place] 00 Drug form: TAB, BID, Dosing [...] oria 4-09 tab, l 22:00: Route: PO, [place] 00 Drug form: TAB, BID, Dosing [...] oria 4-09 tab, l 22:00: Route: PO, [place] 00 Drug form: TAB, BID, Dosing [...] Notes: Memoria 4-09 (Same l 17:07: as:MORPhin [place] 00 e Sulfate) Morphine No Notes: Memoria 4-09 (Same l 17:07: as:MORPhin [place] 00 e Sulfate) Morphine No Notes: Memoria 4-09 (Same l 17:07: as:MORPhin [place] 00 e Sulfate) Morphine No Notes: Memoria 4-09 (Same l 17:07: as:MORPhin [place] 00 e Sulfate) Morphine No Notes: Memoria 4-09 (Same l 17:07: as:MORPhin [place] 00 e Sulfate) Morphine No Notes: Memoria 4-09 (Same l 17:07: as:MORPhin [place] 00 e Sulfate) buPROPion 2020-0 No 150 [...] 0 coated Refill(s), tablet Pharmacy: [facility] 149, 162.56, cm, 08/29/20 5:30:00 CDT, Height, 97.273, kg, 08/29/20 5:30:00 CDT, Weight pantoprazol 2020-0 Yes 40 mg = 1 M emoria e 40 mg 4-09 tab, PO, l oral 15:27: Daily, # [place] enteric 00 30 tab, 0 coated Refill(s), tablet Pharmacy: [facility] 149, 162.56, cm, 08/29/20 5:30:00 CDT, Height, 97.273, kg, 08/29/20 5:30:00 CDT, Weight pantoprazol 2021-0 Yes 40 mg = 1 M emoria e 40 mg 4-09 tab, PO, l oral 15:27: Daily, # [place] enteric 00 30 tab, 0 coated Refill(s), tablet Pharmacy: [facility] 149, 162.56, cm, 08/29/20 5:30:00 CDT, Height, 97.273, kg, 08/29/20 5:30:00 CDT, Weight pantoprazol 1-0 Yes 40 mg = 1 M emoria e 40 mg 4-09 tab, PO, l oral 15:27: Daily, # [place] enteric 00 30 tab, 0 coated Refill(s), tablet Pharmacy: [facility] 149, 162.56, cm, 08/29/20 5:30:00 CDT, Height, 97.273, kg, 08/29/20 5:30:00 CDT, Weight pantoprazol 1-0 Yes 40 mg = 1 M emoria e 40 mg 4-09 tab, PO, l oral 15:27: Daily, # [place] enteric 00 30 tab, 0 coated Refill(s), tablet Pharmacy: [facility] 149, 162.56, cm, 08/29/20 5:30:00 CDT, Height, 97.273, kg, 08/29/20 5:30:00 CDT, Weight pantoprazol 1-0 Yes 40 mg = 1 M emoria e 40 mg 4-09 tab, PO, l oral 15:27: Daily, # [place] enteric 00 30 tab, 0 coated Refill(s), tablet Pharmacy: [facility] 149, 162.56, cm, 08/29/20 5:30:00 CDT, Height, 97.273, kg, 08/29/20 5:30:00 CDT, Weight pantoprazol 2021-0 Yes 40 mg = 1 M emoria e 40 mg 4-09 tab, PO, l oral 15:27: Daily, # [place] enteric 00 30 tab, 0 coated Refill(s), tablet Pharmacy: [facility] 149, 162.56, cm, 08/29/20 5:30:00 CDT, [...] 00 tab, 0 Refill(s), Pharmacy: [facility] 149, 162.56, cm, 08/29/20 5:30:00 CDT, [...] Skylar nn 00 tab, 0 Refill(s), Pharmacy: [place] [id number], 162.56, cm, 08/29/20 5:30:00 CDT, Height, 97.273, [...] 00 tab, 0 Refill(s), Pharmacy: [facility] 149, 162.56, cm, 08/29/20 5:30:00 CDT, Height, 97.273, kg, 08/29/20 5:30:00 CDT, Weight pantoprazol 2020-0 No 40 mg = 1 M emoria e 40 mg 4-09 tab, PO, l oral 15:26: Daily, # [place] enteric 00 30 tab, 0 coated Refill(s) tablet sucralfate 2020-0 Yes 1 gm = 1 Mem oria 1 g oral 4-09 tab, PO, l tablet 15:26: Q12H, # 28 Skylar nn 00 tab, 0 Refill(s), Pharmacy: [facility] 149, 162.56, cm, 08/29/20 5:30:00 CDT, Height, 97.273, kg, 08/29/20 5:30:00 CDT, Weight pantoprazol 2020-0 No 40 mg = 1 M emoria e 40 mg 4-09 tab, PO, l oral 15:26: Daily, # [place] enteric 00 30 tab, 0 coated Refill(s) tablet sucralfate 2020-0 Yes 1 gm = 1 Mem oria 1 g oral 4-09 tab, PO, l tablet 15:26: Q12H, # 28 Skylar nn 00 tab, 0 Refill(s), Pharmacy: [facility] 149, 162.56, cm, 08/29/20 5:30:00 CDT, Height, 97.273, kg, 08/29/20 5:30:00 CDT, Weight pantoprazol 2020-0 No 40 mg = 1 M emoria e 40 mg 4-09 tab, PO, l oral 15:26: Daily, # [place] enteric 00 30 tab, 0 coated Refill(s) tablet sucralfate 2020-0 Yes 1 gm = 1 Mem oria 1 g oral 4-09 tab, PO, l tablet 15:26: Q12H, # 28 Skylar nn 00 tab, 0 Refill(s), Pharmacy: [facility] 149, 162.56, cm, 08/29/20 5:30:00 CDT, [...] nn 00 tab, 0 Refill(s), Pharmacy: [facility] 149, 162.56, cm, 08/29/20 5:30:00 CDT, Height, 97.273, kg, 08/29/20 5:30:00 CDT, Weight Saline No Notes: Memoria Flush 0.9% 4-09 (Same as: l 15:25: BD [place] 00 Posiflush) Lorazepam No Notes: Memori a 4-09 (Same as: l 15:25: Ativan) [place] Saline No Notes: Memoria Flush 0.9% 4-09 (Same as: l 15:25: BD [place] 00 Posiflush) Lorazepam No Notes: Memori a 4-09 (Same as: l 15:25: Ativan) [place] Saline No Notes: Memoria Flush 0.9% 4-09 (Same as: l 15:25: BD [place] 00 Posiflush) Saline No Notes: Memoria [...] a 4-09 (Same as: l 15:25: Ativan) [place] Saline No Notes: Memoria Flush 0.9% 4-09 (Same as: l 15:25: BD [place] 00 Posiflush) Lorazepam No Notes: Memori [...] 08-29 Drug form: l 14:18: INJ, ONCE, [place] 00 Stop date: 08/29/20 9:18:00 CDT heparin [...] 08-29 Drug form: l 14:18: INJ, ONCE, [place] Stop date: 08/29/20 9:18:00 CDT Labetalol 2020-0 No 10 mg, Memori a 08-29 Route: l 14:01: IVP, [place] 00 Q5Min, Dosing Weight 97.273, kg, PRN Elevated BP, Start date: 08/29/20 9:01:00 CDT, Duration: 5 doses or times, Stop date: Limited # of times Acetaminoph 0 No 1,000 mg, M emoria en 08-29 Route: PO, l 14:01: Drug form: [place] 00 TAB, ONCE, Dosing Weight 97.273, [...] Memori a 08-29 Route: l 14:01: IVP, [place] 00 Q2MIN, Dosing Weight 97.273, kg, PRN Narcotic Reversal, Start date: 08/29/20 9:01:00 CDT, Duration: 8 doses or times, Stop date: Limited # of times Ondansetron 1-0 No 4 mg, Memor ia 08-29 Route: l 14:01: IVP, ONCE, [place] 00 Dosing Weight 97.273, kg, PRN [...] oria ne 08-29 Route: l 14:01: IVP, [place] 00 Q5Min, Dosing Weight 97.273, kg, PRN Pain Score 7-10, Start date: 08/29/20 9:01:00 CDT, Duration: 4 doses or times, Stop date: Limited # of times Flumazenil 1-0 No 0.2 mg, Caesar lisa 08-29 Route: l 14:01: IVP, PRN, [place] 00 Dosing Weight 97.273, kg, PRN Benzodiaze pine Reversal, Initial dose, Start date: 08/29/20 9:01:00 CDT, Duration: 30 day, Stop date: 09/28/20 9:00:00 CDT Naloxone 1-0 No 0.4 mg, Memori a 08-29 Route: l 14:01: IVP, [place] 00 Q2MIN, Dosing Weight 97.273, kg, [...] 08-29 Route: PO, l 14:01: Drug form: [place] 00 TAB, ONCE, Dosing Weight 97.273, [...] oria ne 08-29 Route: l 14:01: IVP, [place] 00 Q5Min, Dosing Weight 97.273, kg, PRN Pain Score 7-10, Start date: 08/29/20 9:01:00 CDT, Duration: 4 doses or times, Stop date: Limited # of times Flumazenil 1-0 No 0.2 mg, Caesar lisa 08-29 Route: l 14:01: IVP, PRN, [place] 00 Dosing Weight 97.273, kg, PRN [...] Memori a 08-29 Route: l 14:01: IVP, [place] 00 Q5Min, Dosing Weight 97.273, kg, PRN Elevated BP, Start date: 08/29/20 9:01:00 CDT, Duration: 5 doses or times, Stop date: Limited # of times Acetaminoph 2020-0 No 1,000 mg, M emoria en 08-29 Route: PO, l 14:01: Drug form: [place] 00 TAB, ONCE, Dosing Weight 97.273, [...] oria ne 08-29 Route: l 14:01: IVP, [place] 00 Q5Min, Dosing Weight 97.273, kg, PRN Pain Score 7-10, Start date: 08/29/20 9:01:00 CDT, Duration: 4 doses or times, Stop date: Limited # of times Flumazenil 1-0 No 0.2 mg, Caesar lisa 08-29 Route: l 14:01: IVP, PRN, [place] Dosing Weight 97.273, kg, PRN Benzodiaze pine [...] ia 08-29 Route: l 14:01: IVP, ONCE, [place] 00 Dosing Weight 97.273, kg, PRN Nausea & Vomiting, Start date: 08/29/20 9:01:00 CDT Naloxone 2021-0 No 0.4 mg, Memori a 08-29 Route: l 14:01: IVP, [place] 00 Q2MIN, Dosing Weight 97.273, kg, PRN Narcotic Reversal, Start date: 08/29/20 9:01:00 CDT, Duration: 8 doses or times, Stop date: Limited # of times Ondansetron 2021-0 No 4 mg, Memor ia 08-29 Route: l 14:01: IVP, ONCE, [place] 00 Dosing Weight 97.273, kg, PRN [...] lisa 08-29 Route: l 14:01: IVP, PRN, [place] 00 Dosing Weight 97.273, kg, PRN [...] lisa 08-29 Route: l 14:01: IVP, PRN, [place] 00 Dosing Weight 97.273, kg, PRN [...] Drug form: l 10 13:15: INJ, Start [place] microgram date: 08/29/20 8:15:00 CDT, Stop date: 08/29/20 9:15:00 CDT norepinephr 2020-0 No Route: IV, Memoria ine (ANES) 08-29 Drug form: l 10 13:15: INJ, Start [place] microgram 00 date: 08/29/20 8:15:00 CDT, Stop date: 08/29/20 9:15:00 CDT norepinephr 2020-0 No Route: IV, Memoria ine (ANES) 08-29 Drug form: l 10 13:15: INJ, Start [place] microgram date: 08/29/20 8:15:00 CDT, Stop date: 08/29/20 9:15:00 CDT norepinephr 2020-0 No Route: IV, Memoria ine (ANES) 08-29 Drug form: l 10 13:15: INJ, Start [place] microgram date: 08/29/20 8:15:00 CDT, Stop date: 08/29/20 9:15:00 CDT norepinephr 2020-0 No Route: IV, Memoria ine (ANES) 08-29 Drug form: l 10 13:15: INJ, Start [place] microgram date: 08/29/20 8:15:00 CDT, Stop date: 08/29/20 9:15:00 CDT norepinephr 2020-0 No Route: IV, Memoria ine (ANES) 08-29 Drug form: l 10 13:15: INJ, Start [place] microgram date: 08/29/20 8:15:00 CDT, Stop date: 08/29/20 9:15:00 CDT Sodium 2020-0 No Route: IV, Memor ia Chloride 4-09 Total l 0.9% IV 12:30: Volume: [place] (ANES) 1000 00 1,000, mL Start date: 08/29/20 7:30:00 CDT, Stop date: 08/29/20 8:30:00 CDT Sodium 2020-0 No Route: IV, Memor ia Chloride 4-09 Total l 0.9% IV 12:30: Volume: [place] (ANES) 1000 00 1,000, mL Start date: 08/29/20 7:30:00 CDT, Stop date: 08/29/20 8:30:00 CDT Sodium 2020-0 No Route: IV, Memor ia Chloride 4-09 Total l 0.9% IV 12:30: Volume: [place] (ANES) 1000 00 1,000, mL Start date: 08/29/20 7:30:00 CDT, Stop date: 08/29/20 8:30:00 CDT Sodium 2021-0 No Route: IV, Memor ia Chloride 4-09 Total l 0.9% IV 12:30: Volume: [place] (ANES) 1000 00 1,000, mL Start [...] 4-09 Total l 0.9% IV 12:30: Volume: [place] (ANES) 1000 00 1,000, mL Start [...] PO, l Hydrochlori 11:42: Q24H, # 30 [place] de 150 MG 00 tab, 0 [...] PO, l Hydrochlori 11:42: Q24H, # 30 [place] de 150 MG 00 tab, 0 [...] 4-09 Q12H, tab, l Tablet 11:41: 0 [place] [Eliquis] 00 Refill(s), For Atrial Fibrilatio n apixaban 5 2020-0 Yes 5 mg, PO, Me moria MG Oral 4-09 Q12H, tab, l Tablet 11:41: 0 [place] [Eliquis] 00 Refill(s), For Atrial Fibrilatio n apixaban 5 2020-0 Yes 5 mg, PO, Me moria MG Oral 4-09 Q12H, tab, l Tablet 11:41: 0 [place] [Eliquis] 00 Refill(s), For Atrial Fibrilatio n apixaban 5 2020-0 Yes 5 mg, PO, Me moria MG Oral 4-09 Q12H, tab, l Tablet 11:41: 0 [place] [Eliquis] 00 Refill(s), For Atrial Fibrilatio n apixaban 5 2020-0 Yes 5 mg, PO, Me moria MG Oral 4-09 Q12H, tab, l Tablet 11:41: 0 [place] [Eliquis] 00 Refill(s), For Atrial Fibrilatio n AMIODarone 2020- Yes 200 mg = 1 M emoria [...] tab, PO, l tablet 11:38: Daily, # [place] 00 90 tab, 3 Refill(s) normal No [...] [place]cov[place] 1-21 200 mg-25 [facility] r AF 00:00: mg tablet (Descovy) [...] Filled Immunization Date Status Comments [facility] e Immunization Name Name SARS-COV-2 COVID-19 [...] YRS+, Branch BIVALENT 0.3ML, IM, (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) Influenza Virus 2022-03-05 Completed [facility] [place] [facility] PFIZER COVID-19 2020-07-23 Completed [facility] M[facility] VACCINATION 00:00:00 [facility] PFIZER COVID-19 2020-07-23 Completed [facility] MRNA VACCINATION 00:00:00 [facility] PFIZER COVID-19 2020-07-23 Completed [facility] MRNA VACCINATION 00:00:00 [facility] PFIZER COVID-19 2020-07-23 Completed [facility] MRNA VACCINATION 00:00:00 [facility] PFIZER COVID-19 2020-07-23 Completed [facility] MRNA VACCINATION 00:00:00 [facility] PFIZER COVID-19 2020-07-23 Completed [facility] MRNA VACCINATION 00:00:00 [facility] PFIZER COVID-19 2020-07-23 Completed [facility] MRNA VACCINATION 00:00:00 [facility] PFIZER COVID-19 2020-07-23 Completed [facility] MRNA VACCINATION 00:00:00 [facility] PFIZER COVID-19 2020-07-23 Completed [facility] MRNA VACCINATION 00:00:00 [facility] PFIZER COVID-19 2020-07-23 Completed [facility] MRNA VACCINATION 00:00:00 [facility] PFIZER COVID-19 2020-07-23 Completed [facility] MRNA VACCINATION 00:00:00 [facility] PFIZER COVID-19 2020-07-23 Completed [facility] MRNA VACCINATION 00:00:00 [facility] PFIZER COVID-19 2020-07-23 Completed [facility] MRNA VACCINATION 00:00:00 [facility] PFIZER COVID-19 2020-07-23 Completed [facility] MRNA VACCINATION 00:00:00 [facility] PFIZER COVID-19 2020-07-23 Completed [facility] MRNA VACCINATION 00:00:00 [facility] PFIZER COVID-19 2020-07-23 Completed [facility] MRNA VACCINATION 00:00:00 [facility] PFIZER COVID-19 2020-07-23 Completed [facility] MRNA VACCINATION 00:00:00 [facility] PFIZER COVID-19 2020-07-23 Completed [facility] MRNA VACCINATION 00:00:00 [facility] PFIZER COVID-19 2020-07-23 Completed [facility] MRNA VACCINATION 00:00:00 [facility] PFIZER COVID-19 2020-07-23 Completed [facility] MRNA VACCINATION 00:00:00 [facility] PFIZER COVID-19 2020-07-23 Completed [facility] MRNA VACCINATION 00:00:00 [facility] PFIZER COVID-19 2020-07-23 Completed [facility] MRNA VACCINATION 00:00:00 [facility] PFIZER COVID-19 2020-07-23 Completed [facility] MRNA VACCINATION 00:00:00 [facility] PFIZER COVID-19 2020-07-23 Completed [facility] MRNA VACCINATION 00:00:00 [facility] PFIZER COVID-19 2020-07-23 Completed [facility] MRNA VACCINATION 00:00:00 [facility] PFIZER COVID-19 2020-07-23 Completed [facility] MRNA VACCINATION 00:00:00 [facility] PFIZER COVID-19 2020-07-23 Completed [facility] MRNA VACCINATION 00:00:00 [facility] PFIZER COVID-19 2020-07-23 Completed [facility] MRNA VACCINATION 00:00:00 [facility] PFIZER COVID-19 2020-07-23 Completed [facility] MRNA VACCINATION 00:00:00 [facility] PFIZER COVID-19 2020-07-23 Completed [facility] MRNA VACCINATION 00:00:00 [facility] PFIZER COVID-19 2020-07-23 Completed [facility] M[facility] VACCINATION 00:00:00 [facility] PEG COVID-19 2020-07-23 Completed [facility] MRNA VACCINATION 00:00:00 [facility] PEG COVID-19 2020-07-23 Completed [facility] MRNA VACCINATION 00:00:00 [facility] PEG COVID-19 2020-07-23 Completed [facility] MRNA VACCINATION 00:00:00 [facility] PFIZER COVID-19 2020-07-23 Completed [facility] MRNA VACCINATION 00:00:00 [facility] PEG COVID-19 2020-07-23 Completed [facility] MRNA VACCINATION 00:00:00 [facility] PEG COVID-19 2020-07-23 Completed [facility] MRNA VACCINATION 00:00:00 [facility] PEG COVID-19 2020-07-23 Completed [facility] MRNA VACCINATION 00:00:00 [facility] PFIZER COVID-19 2020-07-23 Completed [facility] MRNA VACCINATION 00:00:00 [facility] PFIZER COVID-19 2020-07-23 Completed [facility] MRNA VACCINATION 00:00:00 [facility] PFIZER COVID-19 2020-07-23 Completed [facility] MRNA VACCINATION 00:00:00 [facility] PFIZER COVID-19 2020-07-23 Completed [facility] MRNA VACCINATION 00:00:00 [facility] PFIZER COVID-19 2020-07-23 Completed [facility] MRNA VACCINATION 00:00:00 [facility] PFIZER COVID-19 2020-07-23 Completed [facility] MRNA VACCINATION 00:00:00 [facility] PFIZER COVID-19 2020-07-23 Completed [facility] MRNA VACCINATION 00:00:00 [facility] PFIZER COVID-19 2020-07-23 Completed [facility] MRNA VACCINATION 00:00:00 [facility] SARS-COV-2 COVID-19 2020-07-23 Completed [facility]ive rsity of PFIZER VACCINE 00:00:00 [facility] SARS-COV-2 COVID-19 2020-07-23 Completed Unive rsity of PFIZER VACCINE 00:00:00 [facility] SARS-COV-2 COVID-19 2020-07-23 Completed Unive rsity of PFIZER VACCINE 00:00:00 [facility] SARS-COV-2 COVID-19 2020-07-23 Completed Unive rsity of PFIZER VACCINE 00:00:00 [facility] SARS-COV-2 COVID-19 2020-07-23 Completed Unive rsity of PFIZER VACCINE 00:00:00 [facility] SARS-COV-2 COVID-19 2020-07-23 Completed Unive rsity of PFIZER VACCINE 00:00:00 [facility] SARS-COV-2 COVID-19 2020-07-23 Completed Unive rsity of PFIZER VACCINE 00:00:00 [facility] SARS-COV-2 COVID-19 2020-07-23 Completed Unive rsity of PFIZER VACCINE 00:00:00 [facility] SARS-COV-2 COVID-19 2020-07-23 Completed Unive rsity of PFIZER VACCINE 00:00:00 [facility] SARS-COV-2 COVID-19 2020-07-23 Completed Unive rsity of PFIZER VACCINE 00:00:00 [facility] SARS-COV-2 COVID-19 2020-07-23 Completed Unive rsity of PFIZER VACCINE 00:00:00 [facility] SARS-COV-2 COVID-19 2020-07-23 Completed Unive rsity of PFIZER VACCINE 00:00:00 [facility] SARS-COV-2 COVID-19 2020-07-23 Completed Unive rsity of PFIZER VACCINE 00:00:00 [facility] SARS-COV-2 COVID-19 2020-07-23 Completed Unive rsity of PFIZER VACCINE 00:00:00 [facility] SARS-COV-2 COVID-19 2020-07-23 Completed Unive rsity of PFIZER VACCINE 00:00:00 [facility] SARS-COV-2 COVID-19 2020-07-23 Completed Unive rsity of PFIZER VACCINE 00:00:00 [facility] SARS-COV-2 COVID-19 2020-07-23 Completed Unive rsity of PFIZER VACCINE 00:00:00 [facility] PFIZER COVID-19 2020-07-23 Completed [facility] M[facility] VACCINATION 00:00:00 [facility] PFIZER COVID-19 2020-07-02 Completed [facility] VACCIN[facility] 00:00:00 [facility] PFIZER COVID-19 2020-07-02 Completed [facility] VACCINATION 00:00:00 [facility] PFIZER COVID-19 2020-07-02 Completed [facility] M[facility] VACCINATION 00:00:00 [facility] PFIZER COVID-19 2020-07-02 Completed [facility] MRNA VACCINATION 00:00:00 [facility] PFIZER COVID-19 2020-07-02 Completed [facility] MRNA VACCINATION 00:00:00 [facility] PFIZER COVID-19 2020-07-02 Completed [facility] MRNA VACCINATION 00:00:00 [facility] PFIZER COVID-19 2020-07-02 Completed [facility] MRNA VACCINATION 00:00:00 [facility] PFIZER COVID-19 2020-07-02 Completed [facility] MRNA VACCINATION 00:00:00 [facility] PFIZER COVID-19 2020-07-02 Completed [facility] M[facility] VACCINATION 00:00:00 [facility] PFIZER COVID-19 2020-07-02 Completed [facility] MRNA VACCINATION 00:00:00 [facility] PFIZER COVID-19 2020-07-02 Completed [facility] M[facility] VACCINATION 00:00:00 [facility] PFIZER COVID-19 2020-07-02 Completed [facility] M[facility] VACCINATION 00:00:00 [facility] PFIZER COVID-19 2020-07-02 Completed [facility] M[facility] VACCINATION 00:00:00 [facility] PFIZER COVID-19 2020-07-02 Completed [facility] MRNA VACCINATION 00:00:00 [facility] PFIZER COVID-19 2020-07-02 Completed [facility] MRNA VACCINATION 00:00:00 [facility] PFIZER COVID-19 2020-07-02 Completed [facility] MRNA VACCINATION 00:00:00 [facility] PFIZER COVID-19 2020-07-02 Completed [facility] MRNA VACCINATION 00:00:00 [facility] PFIZER COVID-19 2020-07-02 Completed [facility] MRNA VACCINATION 00:00:00 [facility] PFIZER COVID-19 2020-07-02 Completed [facility] MRNA VACCINATION 00:00:00 [facility] PFIZER COVID-19 2020-07-02 Completed [facility] MRNA VACCINATION 00:00:00 [facility] PFIZER COVID-19 2020-07-02 Completed [facility] MRNA VACCINATION 00:00:00 [facility] PFIZER COVID-19 2020-07-02 Completed [facility] MRNA VACCINATION 00:00:00 [facility] PFIZER COVID-19 2020-07-02 Completed [facility] MRNA VACCINATION 00:00:00 [facility] PFIZER COVID-19 2020-07-02 Completed [facility] MRNA VACCINATION 00:00:00 [facility] PFIZER COVID-19 2020-07-02 Completed [facility] MRNA VACCINATION 00:00:00 [facility] PFIZER COVID-19 2020-07-02 Completed [facility] MRNA VACCINATION 00:00:00 [facility] PFIZER COVID-19 2020-07-02 Completed [facility] M[facility] VACCINATION 00:00:00 [facility] PFIZER COVID-19 2020-07-02 Completed [facility] M[facility] VACCINATION 00:00:00 [facility] PFIZER COVID-19 2020-07-02 Completed [facility] M[facility] VACCINATION 00:00:00 [facility] PFIZER COVID-19 2020-07-02 Completed [facility] MRNA VACCINATION 00:00:00 [facility] PFIZER COVID-19 2020-07-02 Completed [facility] MRNA VACCINATION 00:00:00 [facility] PFIZER COVID-19 2020-07-02 Completed [facility] MRNA VACCINATION 00:00:00 [facility] PFIZER COVID-19 2020-07-02 Completed [facility] MRNA VACCINATION 00:00:00 [facility] PFIZER COVID-19 2020-07-02 Completed [facility] MRNA VACCINATION 00:00:00 [facility] PFIZER COVID-19 2020-07-02 Completed [facility] MRNA VACCINATION 00:00:00 [facility] PFIZER COVID-19 2020-07-02 Completed [facility] MRNA VACCINATION 00:00:00 [facility] PFIZER COVID-19 2020-07-02 Completed [facility] MRNA VACCINATION 00:00:00 [facility] PFIZER COVID-19 2020-07-02 Completed [facility] MRNA VACCINATION 00:00:00 [facility] PFIZER COVID-19 2020-07-02 Completed [facility] MRNA VACCINATION 00:00:00 [facility] PFIZER COVID-19 2020-07-02 Completed [facility] MRNA VACCINATION 00:00:00 [facility] PFIZER COVID-19 2020-07-02 Completed [facility] MRNA VACCINATION 00:00:00 [facility] PFIZER COVID-19 2020-07-02 Completed [facility] MRNA VACCINATION 00:00:00 [facility] PFIZER COVID-19 2020-07-02 Completed [facility] VACCINATION 00:00:00 [facility] PFIZER COVID-19 2020-07-02 Completed [facility] VACCINATION 00:00:00 [facility] PFIZER COVID-19 2020-07-02 Completed [facility] MRNA VACCINATION 00:00:00 [facility] PFIZER COVID-19 2020-07-02 Completed [facility] MRNA VACCINATION 00:00:00 [facility] SARS-COV-2 COVID-19 2020-07-02 Completed Unive rsity of PFIZER VACCINE 00:00:00 [facility] SARS-COV-2 COVID-19 2020-07-02 Completed Unive rsity of PFIZER VACCINE 00:00:00 [facility] SARS-COV-2 COVID-19 2020-07-02 Completed Unive rsity of PFIZER VACCINE 00:00:00 [facility] SARS-COV-2 COVID-19 2020-07-02 Completed Unive rsity of PFIZER VACCINE 00:00:00 [facility] SARS-COV-2 COVID-19 2020-07-02 Completed Unive rsity of PFIZER VACCINE 00:00:00 [facility] SARS-COV-2 COVID-19 2020-07-02 Completed Unive rsity of PFIZER VACCINE 00:00:00 [facility] SARS-COV-2 COVID-19 2020-07-02 Completed Unive rsity of PFIZER VACCINE 00:00:00 [facility] SARS-COV-2 COVID-19 2020-07-02 Completed Unive rsity of PFIZER VACCINE 00:00:00 [facility] SARS-COV-2 COVID-19 2020-07-02 Completed Unive rsity of PFIZER VACCINE 00:00:00 [facility] SARS-COV-2 COVID-19 2020-07-02 Completed Unive rsity of PFIZER VACCINE 00:00:00 [facility] SARS-COV-2 COVID-19 2020-07-02 Completed Unive rsity of PFIZER VACCINE 00:00:00 [facility] SARS-COV-2 COVID-19 2020-07-02 Completed Unive rsity of PFIZER VACCINE 00:00:00 [facility] SARS-COV-2 COVID-19 2020-07-02 Completed Unive rsity of PFIZER VACCINE 00:00:00 [facility] SARS-COV-2 COVID-19 2020-07-02 Completed Unive rsity of PFIZER VACCINE 00:00:00 [facility] SARS-COV-2 COVID-19 2020-07-02 Completed Unive rsity of PFIZER VACCINE 00:00:00 [facility] SARS-COV-2 COVID-19 2020-07-02 Completed Unive rsity of PFIZER VACCINE 00:00:00 [facility] SARS-COV-2 COVID-19 2020-07-02 Completed Unive rsity of PFIZER VACCINE 00:00:00 [facility] PFIZER COVID-19 2020-07-02 Completed [facility] MRNA VACCINATION 00:00:00 [facility] Influenza Virus 2017-03-08 Completed [facility] Vaccine 00:00:[address] [facility] Influenza Virus 2017-03-08 Completed [facility] of Vaccine 00:00:[address] [facility] Influenza Virus 2017-03-08 Completed [facility] of Vaccine 00:00:[address] [facility] Influenza Virus 2017-03-08 Completed [facility] of Vaccine 00:00:[address] [facility] Influenza Virus 2017-03-08 Completed [facility] of Vaccine 00:00:[address] [facility] Influenza Virus 2017-03-08 Completed [facility] of Vaccine 00:00:[address] [facility] Influenza Virus 2017-03-08 Completed [facility] of Vaccine 00:00:[address] [facility] Influenza Virus 2017-03-08 Completed [facility] of Vaccine 00:00:[address] [facility] Influenza Virus 2017-03-08 Completed [facility] of Vaccine 00:00:[address] [facility] Influenza Virus 2017-03-08 Completed [facility] of Vaccine 00:00:[address] [facility] Influenza Virus 2017-03-08 Completed [facility] of Vaccine 00:00:[address] [facility] Influenza Virus 2017-03-08 Completed [facility] of Vaccine 00:00:[address] [facility] Influenza Virus 2017-03-08 Completed [facility] y of Vaccine 00:00:[address] [facility] Influenza Virus 2017-03-08 Completed [facility] of Vaccine 00:00:[address] [facility] Influenza Virus 2017-03-08 Completed [facility] y of Vaccine 00:00:[address] [facility] Influenza Virus 2017-03-08 Completed [facility] y of Vaccine 00:00:[address] [facility] Influenza Virus 2017-03-08 Completed [facility] y of Vaccine 00:00:[address] [facility] Influenza Virus 2017-03-08 Completed [facility] of Vaccine 00:00:[address] [facility] Influenza Virus 2017-03-08 Completed [facility] y of Vaccine 00:00:[address] [facility] Influenza Virus 2017-03-08 Completed [facility] y of Vaccine 00:00:[address] [facility] Influenza Virus 2017-03-08 Completed [facility] y of Vaccine 00:00:[address] [facility] Influenza Virus 2014-01-30 Completed [facility] Vaccine (3+ yrs) 00:00[facility] Pneum[facility] 13 2014-01-30 Completed Universit y of Conjugate, PCV13 00:00:00 [facility] dical (Prevnar 13) Branch Influenza Virus 2014-01-30 Completed [facility] y of Vaccine (3+ yrs) 00:00:00 [facility] Pneumococcal 13 2014-01-30 Completed Universit y of Conjugate, PCV13 00:00:00 [facility] dical (Prevnar 13) Branch Influenza Virus 2014-01-30 Completed [facility] of Vaccine (3+ yrs) 00:00:00 [facility] Pneumococcal 13 2014-01-30 Completed [facility]it y of Conjugate, PCV13 00:00:00 [facility] dical (Prevnar 13) Branch Influenza Virus 2014-01-30 Completed [facility] of Vaccine (3+ yrs) 00:00:00 [facility] Pneumococcal 13 2014-01-30 Completed [facility]it y of Conjugate, PCV13 00:00:00 [facility] dical (Prevnar 13) Branch Influenza Virus 2014-01-30 Completed [facility] of Vaccine (3+ yrs) 00:00:00 [facility] Pneumococcal 13 2014-01-30 Completed Universit y of Conjugate, PCV13 00:00:00 [facility] dical (Prevnar 13) Branch Influenza Virus 2014-01-30 Completed [facility]it y of Vaccine (3+ yrs) 00:00:00 [facility] dical Branch Pneumococcal 13 2014-01-30 Completed Universit y of Conjugate, PCV13 00:00:00 [facility] dical (Prevnar 13) Branch Influenza Virus 2014-01-30 Completed [facility] of Vaccine (3+ yrs) 00:00:00 [facility] Pneumococcal 13 2014-01-30 Completed [facility]it y of Conjugate, PCV13 00:00:00 [facility] dical (Prevnar 13) Branch Influenza Virus [...] y of Vaccine (3+ yrs) 00:00:00 [place] [facility] Pneumococcal 13 2014-01-30 Completed Universit y of Conjugate, PCV13 00:00:00 [place] [facility] (Prevnar 13) [facility] Influenza Virus 2014-01-30 Completed [facility] of Vaccine (3+ yrs) 00:00:00 [place] [facility] Pneumococcal 13 2014-01-30 Completed [facility] y of Conjugate, PCV13 00:00:00 [place] [facility] (Prevnar 13) Branch Influenza Virus 2014-01-30 Completed [facility] of Vaccine (3+ yrs) 00:00:00 [place] [facility] Pneumococcal 13 2014-01-30 Completed [facility] of Conjugate, PCV13 00:00:00 [place] [facility] (Prevnar 13) Branch Influenza Virus 2014-01-30 Completed [facility] of Vaccine (3+ yrs) 00:00:00 [place] [facility] Pneumococcal 13 2014-01-30 Completed [facility] y of Conjugate, PCV13 00:00:00 [place] [facility] (Prevnar 13) Branch Influenza Virus 2014-01-30 Completed [facility] y of Vaccine (3+ yrs) 00:00:00 [place] [facility] Pneumococcal 13 2014-01-30 Completed [facility]it y of Conjugate, PCV13 00:00:00 [place] [facility] (Prevnar 13) Branch Influenza Virus 2014-01-30 Completed [facility]it y of Vaccine (3+ yrs) 00:00:00 [facility] dical Branch Pneumococcal 13 2014-01-30 Completed Universit y of Conjugate, PCV13 00:00:00 [facility] dical (Prevnar 13) Branch Influenza Virus 2014-01-30 Completed Universit y of Vaccine (3+ yrs) 00:00:00 [facility]ical Branch Pneumococcal 13 2014-01-30 Completed Universit y of Conjugate, PCV13 00:00:00 [facility] dical (Prevnar 13) Branch Influenza Virus 2014-01-30 Completed [facility]it y of Vaccine (3+ yrs) 00:00:00 [facility] dical Branch Pneumococcal 13 2014-01-30 Completed Universit y of Conjugate, PCV13 00:00:00 [facility] dical (Prevnar 13) Branch Influenza Virus 2014-01-30 Completed [facility] y of Vaccine (3+ yrs) 00:00:00 [facility] Branch Pneumococcal 13 2014-01-30 Completed [facility]it y of Conjugate, PCV13 00:00:00 [facility] dical (Prevnar 13) Branch Influenza Virus 2014-01-30 Completed [facility]it y of Vaccine (3+ yrs) 00:00:00 [facility] Branch Pneumococcal 13 2014-01-30 Completed Universit y of Conjugate, PCV13 00:00:00 [facility] dical (Prevnar 13) Branch Influenza Virus [...] Vaccine 00:00:00 [facility] [facility] PPD (TB) 2012-02-16 Completed [facility] 00:00:[address] [facility] Pneumococcal 2012-02-16 Completed University o f Polysaccharide, 00:00:00 [place] [facility] PPSV23 (PNEUMOVAX) Branch Influenza Virus 2012-02-16 Completed Universit y of Vaccine 00:00:[address] [facility] PPD (TB) 2012-02-16 Completed [facility] of 00:00:[address] [facility] Pneumococcal 2012-02-16 Completed University o f Polysaccharide, 00:00:00 [place] [facility] PPSV23 (PNEUMOVAX) [facility] Influenza Virus 2012-02-16 Completed [facility]it y of Vaccine 00:00:[address] [facility] PPD (TB) 2012-02-16 Completed [facility] 00:00:[address] [facility] Pneumococcal 2012-02-16 Completed [facility] o f Polysaccharide, 00:00:00 [place] [facility] PPSV23 (PNEUMOVAX) [facility] Influenza Virus 2012-02-16 Completed Universit y of Vaccine 00:00:[address] [facility] PPD (TB) 2012-02-16 Completed [facility] of 00:00:[address] [facility] Pneumococcal 2012-02-16 Completed [facility] o f Polysaccharide, 00:00:00 [place] [facility] PPSV23 (PNEUMOVAX) [facility] Influenza Virus 2012-02-16 Completed [facility]it [facility] of Vaccine 00:00:[address] [facility] PPD (TB) 2012-02-16 Completed [facility] 00:00:[address] [facility] Pneumococcal 2012-02-16 Completed [facility] o f Polysaccharide, 00:00:00 [place] [facility] PPSV23 (PNEUMOVAX) [facility] Influenza Virus 2012-02-16 Completed Universit y of Vaccine 00:00:[address] [facility] PPD (TB) 2012-02-16 Completed [facility] 00:00:[address] [facility] Pneumococcal 2012-02-16 Completed [facility] o f Polysaccharide, 00:00:00 [place] [facility] PPSV23 (PNEUMOVAX) [facility] Influenza Virus 2012-02-16 Completed [facility]it y of Vaccine 00:00:[address] [facility] PPD (TB) 2012-02-16 Completed [facility] of 00:00:[address] [facility] Pneumococcal 2012-02-16 Completed [facility] o f Polysaccharide, 00:00:00 [place] [facility] PPSV23 (PNEUMOVAX) [facility] Influenza Virus 2012-02-16 Completed [facility]it [facility] of Vaccine 00:00:[address] [facility] PPD (TB) 2012-02-16 Completed [facility] 00:00:[address] [facility] Pneumococcal 2012-02-16 Completed [facility] o f Polysaccharide, 00:00:00 [place] [facility] PPSV23 (PNEUMOVAX) [facility] Influenza Virus 2012-02-16 Completed [facility]it [facility] of Vaccine 00:00:[address] [facility] PPD (TB) 2012-02-16 Completed [facility] of 00:00:[address] [facility] Pneumococcal 2012-02-16 Completed [facility] o f Polysaccharide, 00:00:00 [place] [facility] PPSV23 (PNEUMOVAX) [facility] Influenza Virus 2012-02-16 Completed [facility]it y of Vaccine 00:00:[address] [facility] PPD (TB) 2012-02-16 Completed [facility] of 00:00:[address] [facility] Pneumococcal 2012-02-16 Completed [facility] o f Polysaccharide, 00:00:00 [place] [facility] PPSV23 (PNEUMOVAX) [facility] Influenza Virus 2012-02-16 Completed [facility]it y of Vaccine 00:00:[address] [facility] PPD (TB) 2012-02-16 Completed [facility] of 00:00:[address] [facility] Pneumococcal 2012-02-16 Completed [facility] o f Polysaccharide, 00:00:00 [place] [facility] PPSV23 (PNEUMOVAX) [facility] Influenza Virus 2012-02-16 Completed [facility]it y of Vaccine 00:00:[address] [facility] PPD (TB) 2012-02-16 Completed [facility] of 00:00:[address] [facility] Pneumococcal 2012-02-16 Completed [facility] o f Polysaccharide, 00:00:00 [place] [facility] PPSV23 (PNEUMOVAX) [facility] Influenza Virus 2012-02-16 Completed [facility]it y of Vaccine 00:00:[address] [facility] PPD (TB) 2012-02-16 Completed [facility] 00:00:[address] [facility] Pneumococcal 2012-02-16 Completed [facility] o f Polysaccharide, 00:00:00 [place] [facility] PPSV23 (PNEUMOVAX) [facility] Influenza Virus 2012-02-16 Completed [facility]it [facility] of Vaccine 00:00:[address] [facility] PPD (TB) 2012-02-16 Completed [facility] of 00:00:[address] [facility] Pneumococcal 2012-02-16 Completed [facility] o f Polysaccharide, 00:00:00 [place] [facility] PPSV23 (PNEUMOVAX) [facility] Influenza Virus 2012-02-16 Completed [facility]it [facility] of Vaccine 00:00:[address] [facility] PPD (TB) 2012-02-16 Completed [facility] of 00:00:[address] [facility] Pneumococcal 2012-02-16 Completed [facility] o f Polysaccharide, 00:00:00 [place] [facility] PPSV23 (PNEUMOVAX) [facility] Influenza Virus 2012-02-16 Completed [facility]it [facility] of Vaccine 00:00:[address] [facility] PPD (TB) 2012-02-16 Completed [facility] of 00:00:[address] [facility] Pneumococcal 2012-02-16 Completed [facility] o f Polysaccharide, 00:00:00 [place] [facility] PPSV23 (PNEUMOVAX) [facility] Influenza Virus 2012-02-16 Completed [facility]it [facility] of Vaccine 00:00:[address] [facility] PPD (TB) 2012-02-16 Completed [facility] of 00:00:[address] [facility] Pneumococcal 2012-02-16 Completed [facility] o f Polysaccharide, 00:00:00 [place] [facility] PPSV23 (PNEUMOVAX) [facility] Influenza Virus 2012-02-16 Completed [facility]it [facility] of Vaccine 00:00:[address] [facility] PPD (TB) 2012-02-16 Completed [facility] of 00:00:[address] [facility] Pneumococcal 2012-02-16 Completed [facility] o f Polysaccharide, 00:00:00 [place] [facility] PPSV23 (PNEUMOVAX) [facility] Influenza Virus 2012-02-16 Completed [facility]it [facility] of Vaccine 00:00:[address] [facility] PPD (TB) 2012-02-16 Completed [facility] of 00:00:[address] [facility] Pneumococcal 2012-02-16 Completed [facility] o f Polysaccharide, 00:00:00 [place] [facility] PPSV23 (PNEUMOVAX) [facility] Influenza Virus 2012-02-16 Completed [facility]it [facility] of Vaccine 00:00:[address] [facility] PPD (TB) 2012-02-16 Completed [facility] of 00:00:[address] [facility] Pneumococcal 2012-02-16 Completed [facility] o f Polysaccharide, 00:00:00 [place] [facility] PPSV23 (PNEUMOVAX) [facility] Influenza Virus 2012-02-16 Completed [facility]it [facility] of Vaccine 00:00:[address] [facility] PPD (TB) 2012-02-16 Completed [facility] of 00:00:[address] [facility] Hep B, Adol or Pedi 2011-09-01 Completed Unive rsity of Dosage 00:00:[address] [facility] Hep B, Adol or Pedi 2011-09-01 Completed Unive rsity of Dosage 00:00:[address] [facility] Hep B, Adol or Pedi 2011-09-01 Completed Unive rsity of Dosage 00:00:[address] [facility] Hep B, Adol or Pedi 2011-09-01 Completed Unive rsity of Dosage 00:00:[address] [facility] Hep B, Adol or Pedi 2011-09-01 Completed Unive rsity of Dosage 00:00:[address] [facility] Hep B, Adol or Pedi 2011-09-01 Completed Unive rsity of Dosage 00:00:[address] [facility] Hep B, Adol or Pedi [...] Completed Unive rsity of Dosage 00:00:00 [facility] [place] [facility] Hep B, Adol or Pedi 2011-03-17 Completed Unive rsity of Dosage 00:00:00 [facility] [place] [facility] Hep B, Adol or Pedi 2011-03-17 Completed Unive rsity of Dosage 00:00:00 [place] [facility] Hep B, Adol or Pedi 2011-03-17 Completed Unive rsity of Dosage 00:00:00 [facility] [place] [facility] Hep B, Adol or Pedi 2011-03-17 Completed Unive rsity of Dosage 00:00:00 [facility] [place] [facility] Hep B, Adol or Pedi 2011-03-17 Completed Unive rsity of Dosage 00:00:00 [facility] [place] [facility] Hep B, Adol or Pedi 2011-03-17 Completed Unive rsity of Dosage 00:00:00 [place] [facility] Hep B, Adol or Pedi 2011-03-17 Completed Unive rsity of Dosage 00:00:00 [facility] [place] [facility] Hep B, Adol or Pedi 2011-03-17 Completed Unive rsity of Dosage 00:00:00 [facility] [place] [facility] Hep B, Adol or Pedi 2011-03-17 Completed Unive rsity of Dosage 00:00:00 [facility] [place] [facility] Hep B, Adol or Pedi 2011-03-17 Completed Unive rsity of Dosage 00:00:00 [facility] [place] [facility] Hep B, Adol or Pedi 2011-03-17 Completed Unive rsity of Dosage 00:00:[address] [facility] Influenza Virus 2011-02-10 Completed Universit y of Vaccine 00:00:[address] [facility] Hep B, Adol or Pedi 2011-02-10 Completed Unive rsity of Dosage 00:00:[address] [facility] Influenza Virus 2011-02-10 Completed [facility]it [facility] Vaccine 00:00:00 [facility] Hep B, Adol or Pedi 2011-02-10 Completed Unive rsity of Dosage 00:00:[address] [facility] Influenza Virus 2011-02-10 Completed Universit [facility] Vaccine 00:00:00 [facility] Hep B, Adol or Pedi 2011-02-10 Completed Unive rsity of Dosage 00:00:[address] [facility] Influenza Virus 2011-02-10 Completed Universit y of Vaccine 00:00:[address] [facility] Hep B, Adol or Pedi 2011-02-10 Completed Unive rsity of Dosage 00:00:[address] [facility] Influenza Virus 2011-02-10 Completed [facility]it y of Vaccine 00:00:[address] [facility] Hep B, Adol or Pedi 2011-02-10 Completed Unive rsity of Dosage 00:00:[address] [facility] Influenza Virus 2011-02-10 Completed [facility]it [facility] of Vaccine 00:00:[address] [facility] Hep B, Adol or Pedi 2011-02-10 Completed Unive rsity of Dosage 00:00:[address] [facility] Influenza Virus 2011-02-10 Completed [facility]it [facility] Vaccine 00:00:00 [facility] Hep B, Adol or Pedi 2011-02-10 Completed Unive rsity of Dosage 00:00:[address] [facility] Influenza Virus 2011-02-10 Completed [facility]it [facility] Vaccine 00:00:00 [facility] Hep B, Adol or Pedi 2011-02-10 Completed Unive rsity of Dosage 00:00:[address] [facility] Influenza Virus 2011-02-10 Completed [facility]it [facility] Vaccine 00:00:00 [facility] Hep B, Adol or Pedi 2011-02-10 Completed Unive rsity of Dosage 00:00:[address] [facility] Influenza Virus 2011-02-10 Completed [facility]it [facility] Vaccine 00:00:00 [facility] Hep B, Adol or Pedi 2011-02-10 Completed Unive rsity of Dosage 00:00:[address] [facility] Influenza Virus 2011-02-10 Completed [facility]it y of Vaccine 00:00:[address] [facility] Hep B, Adol or Pedi 2011-02-10 Completed Unive rsity of Dosage 00:00:[address] [facility] Influenza Virus 2011-02-10 Completed [facility] Vaccine 00:00:00 [facility] Hep B, Adol or Pedi 2011-02-10 Completed Unive rsity of Dosage 00:00:[address] [facility] Influenza Virus 2011-02-10 Completed [facility]it [facility] Vaccine 00:00:00 [facility] Hep B, Adol or Pedi 2011-02-10 Completed Unive rsity of Dosage 00:00:[address] [facility] Influenza Virus 2011-02-10 Completed [facility]it y of Vaccine 00:00:[address] [facility] Hep B, Adol or Pedi 2011-02-10 Completed Unive rsity of Dosage 00:00:[address] [facility] Influenza Virus 2011-02-10 Completed [facility]it y of Vaccine 00:00:[address] [facility] Hep B, Adol or Pedi 2011-02-10 Completed Unive rsity of Dosage 00:00:[address] [facility] Influenza Virus 2011-02-10 Completed [facility]it y of Vaccine 00:00:[address] [facility] Hep B, Adol or Pedi 2011-02-10 Completed Unive rsity of Dosage 00:00:[address] [facility] Influenza Virus 2011-02-10 Completed [facility]it y of Vaccine 00:00:[address] [facility] Hep B, Adol or Pedi 2011-02-10 Completed Unive rsity of Dosage 00:00:[address] [facility] Influenza Virus 2011-02-10 Completed [facility] Vaccine 00:00:00 [facility] Hep B, Adol or Pedi 2011-02-10 Completed Unive rsity of Dosage 00:00:[address] [facility] Influenza Virus 2011-02-10 Completed [facility]it [facility] Vaccine 00:00:00 [facility] Hep B, Adol or Pedi 2011-02-10 Completed Unive rsity of Dosage 00:00:[address] [facility] Influenza Virus 2011-02-10 Completed [facility] Vaccine 00:00:00 [facility] Hep B, Adol or Pedi 2011-02-10 Completed Unive rsity of Dosage 00:00:[address] [facility] Influenza Virus 2011-02-10 Completed [facility]it [facility] Vaccine 00:00:00 [facility] Hep B, Adol or Pedi 2011-02-10 Completed Unive rsity of Dosage 00:00:[address] [facility] PPD (TB) 2010-11-18 Completed [facility] of 00:00:[address] [facility] TDAP (ADACEL) 2010-11-18 Completed University of VACCINE 00:00:[address] [facility] PPD (TB) 2010-11-18 Completed [facility] 00:00:00 [facility] TDAP (ADACEL) 2010-11-18 Completed University of VACCINE 00:00:[address] [facility] PPD (TB) 2010-11-18 Completed [facility] 00:00:00 [facility] TDAP (ADACEL) 2010-11-18 Completed University of VACCINE 00:00:[address] [facility] PPD (TB) 2010-11-18 Completed [facility] of 00:00:[address] [facility] TDAP (ADACEL) 2010-11-18 Completed [facility] of VACCINE 00:00:[address] [facility] PPD (TB) 2010-11-18 Completed [facility] of 00:00:[address] [facility] TDAP (ADACEL) 2010-11-18 Completed [facility] of VACCINE 00:00:[address] [facility] PPD (TB) 2010-11-18 Completed [facility] of 00:00:[address] [facility] TDAP (ADACEL) 2010-11-18 Completed [facility] of VACCINE 00:00:[address] [facility] PPD (TB) 2010-11-18 Completed [facility] of 00:00:[address] [facility] TDAP (ADACEL) 2010-11-18 Completed [facility] of VACCINE 00:00:[address] [facility] PPD (TB) 2010-11-18 Completed [facility] of 00:00:[address] [facility] TDAP (ADACEL) 2010-11-18 Completed [facility] of VACCINE 00:00:[address] [facility] PPD (TB) 2010-11-18 Completed [facility] 00:00:00 [facility] TDAP (ADACEL) 2010-11-18 Completed [facility] of VACCINE 00:00:[address] [facility] PPD (TB) 2010-11-18 Completed [facility] 00:00:00 [facility] TDAP (ADACEL) 2010-11-18 Completed [facility] of VACCINE 00:00:[address] [facility] PPD (TB) 2010-11-18 Completed [facility] 00:00:00 [facility] TDAP (ADACEL) 2010-11-18 Completed [facility] of VACCINE 00:00:00 [facility] PPD (TB) 2010-11-18 Completed [facility] 00:00:00 [facility] TDAP (ADACEL) 2010-11-18 Completed [facility] of VACCINE 00:00:00 [facility] PPD (TB) 2010-11-18 Completed [facility] 00:00:00 [facility] TDAP (ADACEL) 2010-11-18 Completed [facility] of VACCINE 00:00:[address] [facility] PPD (TB) 2010-11-18 Completed [facility] 00:00:00 [facility] TDAP (ADACEL) 2010-11-18 Completed [facility] of VACCINE 00:00:[address] [facility] PPD (TB) 2010-11-18 Completed [facility] 00:00:00 [facility] TDAP (ADACEL) 2010-11-18 Completed [facility] of VACCINE 00:00:[address] [facility] PPD (TB) 2010-11-18 Completed [facility] 00:00:00 [facility] TDAP (ADACEL) 2010-11-18 Completed [facility] of VACCINE 00:00:[address] [facility] PPD (TB) 2010-11-18 Completed [facility] 00:00:00 [facility] TDAP (ADACEL) 2010-11-18 Completed [facility] of VACCINE 00:00:[address] [facility] PPD (TB) 2010-11-18 Completed [facility] of 00:00:[address] [facility] TDAP (ADACEL) 2010-11-18 Completed [facility] of VACCINE 00:00:[address] [facility] PPD (TB) 2010-11-18 Completed [facility] of 00:00:[address] [facility] TDAP (ADACEL) 2010-11-18 Completed [facility] of VACCINE 00:00:[address] [facility] PPD (TB) 2010-11-18 Completed [facility] 00:00:00 [facility] TDAP (ADACEL) 2010-11-18 Completed [facility] of VACCINE 00:00:[address] [facility] PPD (TB) 2010-11-18 Completed [facility] 00:00:00 [facility] TDAP (ADACEL) 2010-11-18 Completed [facility] of VACCINE 00:00:00 [facility] HEPATITIS A 2004-03-02 Completed [facility] of 00:00:00 [facility] HEPATITIS A 2004-03-02 Completed [facility] 00:00:00 [facility] HEPATITIS A 2004-03-02 Completed [facility] 00:00:00 [facility] HEPATITIS A 2004-03-02 Completed [facility] 00:00:00 [facility] HEPATITIS A 2004-03-02 Completed [facility] 00:00:00 [facility] [place] [facility] HEPATITIS A 2004-03-02 Completed [facility] 00:00:00 [facility] [place] [facility] HEPATITIS A 2004-03-02 Completed [facility] 00:00:00 [facility] [place] [facility] HEPATITIS A 2004-03-02 Completed [facility] 00:00:00 [facility] [place] [facility] HEPATITIS A 2004-03-02 Completed [facility] 00:00:00 [facility] HEPATITIS A 2004-03-02 Completed [facility] 00:00:00 [facility] [place] [facility] HEPATITIS A 2004-03-02 Completed [facility] 00:00:00 [facility] [place] [facility] HEPATITIS A 2004-03-02 Completed [facility] 00:00:00 [facility] HEPATITIS A 2004-03-02 Completed [facility] 00:00:00 [facility] HEPATITIS A 2004-03-02 Completed [facility] 00:00:00 [facility] HEPATITIS A 2004-03-02 Completed [facility] 00:00:00 [facility] HEPATITIS A 2004-03-02 Completed [facility] 00:00:00 [facility] HEPATITIS A 2004-03-02 Completed [facility] 00:00:00 [facility] HEPATITIS A 2004-03-02 Completed [facility] 00:00:00 [facility] HEPATITIS A 2004-03-02 Completed [facility] 00:00:00 [facility] HEPATITIS A 2004-03-02 Completed [facility] of 00:00:00 [facility] HEPATITIS A 2004-03-02 Completed [facility] 00:00:00 [facility] HEPATITIS A 2003-08-01 Completed [facility] 00:00:00 [facility] HEPATITIS A 2003-08-01 Completed [facility] 00:00:00 [facility] HEPATITIS A 2003-08-01 Completed [facility] 00:00:00 [facility] [place] [facility] HEPATITIS A 2003-08-01 Completed [facility] 00:00:00 [facility] [place] [facility] HEPATITIS A 2003-08-01 Completed [facility] 00:00:00 [facility] [place] [facility] HEPATITIS A 2003-08-01 Completed [facility] 00:00:00 [facility] [place] [facility] HEPATITIS A 2003-08-01 Completed [facility] 00:00:00 [facility] [place] [facility] HEPATITIS A 2003-08-01 Completed [facility] 00:00:00 [facility] [place] [facility] HEPATITIS A 2003-08-01 Completed [facility] 00:00:00 [facility] [place] [facility] HEPATITIS A 2003-08-01 Completed [facility] 00:00:00 [facility] [place] [facility] HEPATITIS A 2003-08-01 Completed [facility] 00:00:00 [place] [facility] HEPATITIS A 2003-08-01 Completed [facility] of 00:00:[address] [facility] HEPATITIS A 2003-08-01 Completed [facility] of 00:00:[address] [facility] HEPATITIS A 2003-08-01 Completed [facility] of 00:00:[address] [facility] HEPATITIS A 2003-08-01 Completed [facility] 00:00:00 [facility] HEPATITIS A 2003-08-01 Completed [facility] 00:00:00 [facility] HEPATITIS A 2003-08-01 Completed [facility] 00:00:00 [facility] HEPATITIS A 2003-08-01 Completed [facility] 00:00:00 [facility] HEPATITIS A 2003-08-01 Completed [facility] of 00:00:[address] [facility] HEPATITIS A 2003-08-01 Completed [facility] of 00:00:[address] [facility] HEPATITIS A 2003-08-01 Completed [facility] of 00:00:[address] [facility] Pneumococcal 2001-10-04 Completed University o f Polysaccharide, 00:00:00 [place] [facility] PPSV23 (PNEUMOVAX) Branch PPD (TB) 2001-10-04 Completed [facility] of 00:00:[address] [facility] Pneumococcal 2001-10-04 Completed [facility] o f Polysaccharide, 00:00:00 [place] [facility] PPSV23 (PNEUMOVAX) [facility] PPD (TB) 2001-10-04 Completed [facility] of 00:00:[address] [facility] Pneumococcal 2001-10-04 Completed [facility] o f Polysaccharide, 00:00:00 [place] [facility] PPSV23 (PNEUMOVAX) [facility] PPD (TB) 2001-10-04 Completed [facility] of 00:00:[address] [facility] Pneumococcal 2001-10-04 Completed [facility] o f Polysaccharide, 00:00:00 [place] [facility] PPSV23 (PNEUMOVAX) Branch PPD (TB) 2001-10-04 Completed [facility] of 00:00:[address] [facility] Pneumococcal 2001-10-04 Completed [facility] o f Polysaccharide, 00:00:00 [place] [facility] PPSV23 (PNEUMOVAX) Branch PPD (TB) 2001-10-04 Completed [facility] of 00:00:[address] [facility] Pneumococcal 2001-10-04 Completed [facility] o f Polysaccharide, 00:00:00 [place] [facility] PPSV23 (PNEUMOVAX) [facility] PPD (TB) 2001-10-04 Completed [facility] of 00:00:[address] [facility] Pneumococcal 2001-10-04 Completed [facility] o f Polysaccharide, 00:00:00 [place] [facility] PPSV23 (PNEUMOVAX) Branch PPD (TB) 2001-10-04 Completed University of 00:00:[address] [facility] Pneumococcal 2001-10-04 Completed University o f Polysaccharide, 00:00:00 [place] [facility] PPSV23 (PNEUMOVAX) Branch PPD (TB) 2001-10-04 Completed University of 00:00:[address] [facility] Pneumococcal 2001-10-04 Completed University o f Polysaccharide, 00:00:00 [place] [facility] PPSV23 (PNEUMOVAX) Branch PPD (TB) 2001-10-04 Completed University of 00:00:[address] [facility] Pneumococcal 2001-10-04 Completed University o f Polysaccharide, 00:00:00 [place] [facility] PPSV23 (PNEUMOVAX) Branch PPD (TB) 2001-10-04 Completed University of 00:00:[address] [facility] Pneumococcal 2001-10-04 Completed University o f Polysaccharide, 00:00:00 [place] [facility] PPSV23 (PNEUMOVAX) Branch PPD (TB) 2001-10-04 Completed University of 00:00:[address] [facility] Pneumococcal 2001-10-04 Completed University o f Polysaccharide, 00:00:00 [place] [facility] PPSV23 (PNEUMOVAX) Branch PPD (TB) 2001-10-04 Completed University of 00:00:[address] [facility] Pneumococcal 2001-10-04 Completed University o f Polysaccharide, 00:00:00 [place] [facility] PPSV23 (PNEUMOVAX) Branch PPD (TB) 2001-10-04 Completed University of 00:00:[address] [facility] Pneumococcal 2001-10-04 Completed University o f Polysaccharide, 00:00:00 [place] [facility] PPSV23 (PNEUMOVAX) Branch PPD (TB) 2001-10-04 Completed University of 00:00:[address] [facility] Pneumococcal 2001-10-04 Completed University o f Polysaccharide, 00:00:00 [place] [facility] PPSV23 (PNEUMOVAX) Branch PPD (TB) 2001-10-04 Completed [facility] of 00:00:[address] [facility] Pneumococcal 2001-10-04 Completed University o f Polysaccharide, 00:00:00 [place] [facility] PPSV23 (PNEUMOVAX) Branch PPD (TB) 2001-10-04 Completed [facility] of 00:00:[address] [facility] Pneumococcal 2001-10-04 Completed University o f Polysaccharide, 00:00:00 [place] [facility] PPSV23 (PNEUMOVAX) Branch PPD (TB) 2001-10-04 Completed [facility] of 00:00:[address] [facility] Pneumococcal 2001-10-04 Completed University o f Polysaccharide, 00:00:00 [place] [facility] PPSV23 (PNEUMOVAX) Branch PPD (TB) 2001-10-04 Completed [facility] of 00:00:[address] [facility] Pneumococcal 2001-10-04 Completed University o f Polysaccharide, 00:00:00 [place] [facility] PPSV23 (PNEUMOVAX) Branch PPD (TB) 2001-10-04 Completed [facility] of 00:00:[address] [facility] Pneumococcal 2001-10-04 Completed University o f Polysaccharide, 00:00:00 [place] [facility] PPSV23 (PNEUMOVAX) Branch PPD (TB) 2001-10-04 Completed [facility] of 00:00:[address] [facility] Pneumococcal 2001-10-04 Completed University o f Polysaccharide, 00:00:00 [place] [facility] PPSV23 (PNEUMOVAX) Branch PPD (TB) 2001-10-04 Completed [facility] of 00:00:[address] [facility] Vital Signs Vital Name Observation Time Observation Value Comments Source Systolic blood 2022-05-10 22:00:00 159 mm[Hg] Univer sity of pressure [facility] Diastolic blood 2022-05-10 22:00:00 87 mm[Hg] Unive rsity of [facility] Heart rate 2022-05-10 22:00:00 56 /min [facility] Body temperature 2022-05-10 22:00:00 36.61 Amina [facility] 2022-05-10 22:00:00 17 /min [facility] Oxygen saturation in 2022-05-10 22:00:00 98 /min [facility] Arterial blood by [facility] Pulse oximetry Branch Body weight 2022-05-10 16:29:00 78.926 kg [facility] BMI 2022-05-10 16:29:00 29.87 kg/m2 [facility] Systolic blood 2022-05-08 22:30:00 168 mm[Hg] Univer sity of pressure [facility] Diastolic blood 2022-05-08 22:30:00 85 mm[Hg] Unive rsity of [facility] Heart rate 2022-05-08 22:30:00 68 /min [facility] [place] [facility] Oxygen saturation in 2022-05-08 22:30:00 100 /min University of Arterial blood by [place] [employer] [facility] Pulse oximetry Branch Body temperature 2022-05-08 22:22:00 35.89 Amian Univ ersity of [place] [facility] Respiratory rate 2022-05-08 22:22:00 14 /min Univ ersity of [place] [facility] Body weight 2022-05-08 22:22:00 78.926 kg [facility] [place] [facility] BMI 2022-05-08 22:22:00 29.87 kg/m2 [facility] [place] [facility] Systolic blood 2022-05-07 00:00:00 149 mm[Hg] Univer sity of pressure [facility] [place] [facility] Diastolic blood 2022-05-07 00:00:00 132 mm[Hg] Unive rsity of pressure [facility] [place] [facility] Heart rate 2022-05-07 00:00:00 59 /min [facility] [place] [facility] Respiratory rate 2022-05-07 00:00:00 14 /min Univ ersity of [place] [facility] Oxygen saturation in 2022-05-07 00:00:00 99 /min University of Arterial blood by [facility] porfirio Pulse oximetry Branch Body temperature 2022-05-06 20:12:00 36.5 Amina Univ ersity [facility] [place] [facility] Body height 2022-05-06 20:12:00 162.6 cm [facility] [place] [facility] Body weight 2022-05-06 20:12:00 78.926 kg [facility] [place] [facility] BMI 2022-05-06 20:12:00 29.87 kg/m2 [facility] [place] [facility] Systolic blood 2022-04-22 19:50:00 156 mm[Hg] Univer sity of pressure [facility] [place] [facility] Diastolic blood 2022-04-22 19:50:00 89 mm[Hg] Unive rsity of pressure [facility] [place] [facility] Heart rate 2022-04-22 19:50:00 69 /min [facility] [place] [facility] Body temperature 2022-04-22 19:50:00 36.67 Amina Univ ers[facility] [place] [facility] Respiratory rate 2022-04-22 19:50:00 17 /min Univ ersity [facility] [place] [facility] Body height 2022-04-22 19:50:00 162.6 cm [facility] [place] [facility] Body weight 2022-04-22 19:50:00 80.74 kg [facility] [place] [facility] BMI 2022-04-22 19:50:00 30.55 kg/m2 [facility] [place] [facility] Oxygen saturation in 2022-04-22 19:50:00 96 /min University of Arterial blood by [place] [employer] [facility] Pulse oximetry Branch Systolic blood 2022-03-05 15:23:00 167 mm[Hg] Univer sity of pressure [facility] [place] [facility] Diastolic blood 2022-03-05 15:23:00 105 mm[Hg] Unive rsity of pressure [facility] [place] [facility] Heart rate 2022-03-05 15:23:00 49 /min [facility] [place] [facility] Body temperature 2022-03-05 15:18:00 36.67 Amina Univ ers[facility] [place] [facility] Respiratory rate 2022-03-05 15:18:00 18 /min Univ ersity [facility] [place] [facility] Body height 2022-03-05 15:18:00 162.6 cm [facility] [place] [facility] Body weight 2022-03-05 15:18:00 74.707 kg [facility] [place] [facility] BMI 2022-03-05 15:18:00 28.27 kg/m2 [facility] [place] [facility] Systolic blood 2022-02-16 21:41:00 169 mm[Hg] Univer sity of pressure [facility] [place] [facility] Diastolic blood 2022-02-16 21:41:00 86 mm[Hg] Unive rsity of pressure [facility] [place] [facility] Heart rate 2022-02-16 21:41:00 51 /min [facility] [place] [facility] Body temperature 2022-02-16 21:41:00 36.56 Amina Univ [facility] [place] [facility] Respiratory rate 2022-02-16 21:41:00 17 /min Univ ersity of [place] [facility] Oxygen saturation in 2022-02-16 21:41:00 98 /min University of Arterial blood by [place] [employer] [facility] Pulse oximetry Branch Body height 2022-02-11 16:02:00 162.6 cm [facility] [place] [facility] Body weight 2022-02-11 16:02:00 79.379 kg [facility] [place] [facility] BMI 2022-02-11 16:02:00 30.04 kg/m2 Universi ty of [facility] Systolic blood 2021-11-20 13:47:00 165 mm[Hg] Univer sity of pressure [facility] Diastolic blood 2021-11-20 13:47:00 83 mm[Hg] Unive rsity of pressure [facility] Heart rate 2021-11-20 13:47:00 58 /min Universi ty of [facility] Body temperature 2021-11-20 13:42:00 36.39 Amina [facility] ersity of [facility] Respiratory rate 2021-11-20 13:42:00 16 /min Univ ersity of [facility] Body height 2021-11-20 13:42:00 162.6 cm Universi ty of [facility] Body weight 2021-11-20 13:42:00 84.369 kg Universi ty of [facility] BMI 2021-11-20 13:42:00 31.93 kg/m2 Universi ty [facility] Systolic blood 2021-07-14 15:18:00 142 [...] of pressure [facility] Diastolic blood 2022-05-10 22:00:00 87 mm[Hg] Unive rsity of pressure [facility] Heart rate 2022-05-10 22:00:00 56 /min Universi ty of [facility] Body temperature 2022-05-10 22:00:00 36.61 Amina [facility] Respiratory rate 2022-05-10 22:00:00 17 /min [facility] Oxygen saturation in 2022-05-10 22:00:00 98 /min [facility] Arterial blood by [facility] Pulse oximetry Branch Body weight 2022-05-10 16:29:00 78.926 kg [facility] [place] [facility] [place] BMI 2022-05-10 16:29:00 29.87 kg/m2 Universi ty of [facility] Body height 2022-05-06 20:12:00 162.6 cm Universi ty of [facility] Systolic blood 2022-03-05 15:23:00 167 mm[Hg] Univer sity of pressure [facility] Diastolic blood 2022-03-05 15:23:00 105 mm[Hg] Unive rsity of pressure [facility] Heart rate 2022-03-05 15:23:00 49 /min Universi ty of [facility] Body temperature 2022-03-05 15:18:00 36.67 Amina Univ ersity of [facility] Respiratory rate 2022-03-05 15:18:00 18 /min Univ ersity of [facility] Body height 2022-03-05 15:18:00 162.6 cm Universi ty of [facility] Body weight 2022-03-05 15:18:00 74.707 kg [facility] [place] [facility] [place] BMI 2022-03-05 15:18:00 28.27 kg/m2 Universi ty [facility] Oxygen saturation in 2022-02-16 21:41:00 98 /min University of Arterial blood by [facility] Pulse oximetry Branch Systolic blood 2020-12-08 15:48:00 125 mm[Hg] Method [facility] pressure Diastolic blood 2020-12-08 15:48:00 76 mm[Hg] [facility] pressure Heart rate 2020-12-08 15:48:00 64 /min [facility] Body temperature 2020-12-08 15:48:00 36.61 Amina [facility] Respiratory rate 2020-12-08 15:48:00 17 /min [facility] Body height 2020-12-08 15:48:00 162.6 cm [facility] Body weight 2020-12-08 15:48:00 98.884 kg [facility] BMI 2020-12-08 15:48:00 37.42 kg/m2 [facility] Oxygen saturation in 2020-12-08 15:48:00 97 /min [facility] Arterial blood by Pulse oximetry Respitory Rate 2020-08-30 13:00:00 Memori al [place] Systolic (mm Hg) 2020-08-30 13:00:00 Caesar rial [place] Diastolic (mm Hg) 2020-08-30 13:00:00 Mem orial [place] Systolic (mm Hg) 2020-08-30 11:00:00 Caesar rial [place] Diastolic (mm Hg) 2020-08-30 11:00:00 Mem orial [place] Temperature Oral (F) 2020-08-30 11:00:00 98.4 F [facility] [place] Respitory Rate 2020-08-30 11:00:00 Memori al [place] Respitory Rate 2020-08-30 10:00:00 Memori al [place] Systolic (mm Hg) 2020-08-30 10:00:00 Caesar rial [place] Diastolic (mm Hg) 2020-08-30 10:00:00 Mem orial [place] Temperature Oral (F) 2020-08-30 00:00:00 96.9 F [facility] Temperature Oral (F) 2020-08-29 11:26:00 97.6 F [facility] [place] Height 2020-08-29 10:30:00 162.56 cm [facility] Weight 2020-08-29 10:30:00 [facility] BMI Calculated 2020-08-29 10:30:00 Memraymond andre [facility] Procedures Procedure Date / Time Performing Clinician Source Performed URINALYSIS 2022-05-10 19:36:00 Home Matthews [facility] TROPONIN I 2022-05-10 18:34:00 Home Matthews [facility] COMP. METABOLIC PANEL 2022-05-10 18:34:00 Home Matthews [facility] ([id number]) [facility] CBC WITH DIFF 2022-05-10 18:34:00 Home Matthews [facility] XR CHEST 2 VW 2022-05-10 17:24:58 Home Matthews [facility] CONSENT/REFUSAL FOR 2022-05-10 16:26:23 Doctor Unassigned, [facility] DIAGNOSIS AND TREATMENT [place] [facility] CONSENT/REFUSAL FOR 2022-05-10 16:26:09 Doctor Unassigned, [facility] DIAGNOSIS AND TREATMENT [place] [facility] [place] URINALYSIS 2022-05-08 22:43:00 Theresa [facility] XR CHEST 2 VW 2022-05-06 22:56:53 Anette Olea [facility] COMP. METABOLIC PANEL 2022-05-06 22:14:[address] [facility] ([id number]) Medical Branch CBC WITH DIFF 2022-05-06 22:14:00 Anette Olea [facility] COVID-19 (ID NOW RAPID 2022-05-06 22:14:00 Anette Olea [facility] TESTING) Medical Branch BASIC METABOLIC PANEL (NA, 2022-04-22 21:23:00 Paulette Gray [facility] K, CL, CO2, GLUCOSE, BUN, Medica l Branch CREATININE, [place]) CBC WITH DIFF 2022-04-22 21:23:00 P[facility] CONSENT/REFUSAL FOR 2022-04-22 19:45:46 Doctor Unassigned, [facility] DIAGNOSIS AND TREATMENT [place] [facility] SARS-COV-2 COVID-19 2022-03-05 16:09:27 [facility] DIMITRIS-SUCROSE VACCINE [address] [place] [address] YRS+, BIVALENT 0.3ML, IM, (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) FLU 2022-03-05 16:09:27 [facility] VACC(),65+YR,0.5 Medica l Branch ML,IM,ADJUVANTED,QUAD(FLUA D) FLU 2022-03-05 16:09:27 [facility] VACC(),65+YR,0.5 Medica l Branch ML,IM,ADJUVANTED,QUAD(FLUA D) SARS-COV-2 COVID-19 2022-03-05 16:09:27 [facility] DIMITRIS-SUCROSE VACCINE [address] [place] [address] YRS+, BIVALENT 0.3ML, IM, (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) MAGNESIUM 2022-02-15 09:41:00 [facility] (NA, 2022-02-15 09:41:00 Sofia Garcia [facility] K, CL, CO2, GLUCOSE, BUN, Medica l Branch CREATININE, CA) CBC WITH DIFF 2022-02-15 09:41:00 Sofia Garcia [facility] N-TERMINAL PRO-BNP 2022-02-15 09:41:00 Sofia Garcia [facility] CBC WITH DIFF 2022-02-15 09:41:[address] [facility] (NA, 2022-02-15 09:41:00 Sofia Garcia [facility] K, CL, CO2, GLUCOSE, BUN, Medica l Branch CREATININE, CA) MAGNESIUM 2022-02-15 09:41:00 Sofia Garcia [facility] N-TERMINAL PRO-BNP 2022-02-15 09:41:00 Sofia Garcia [facility] BASIC METABOLIC PANEL (NA, 2022-02-13 09:40:00 Sofia Garcia [facility] K, CL, CO2, GLUCOSE, BUN, Medica l Branch CREATININE, CA) CBC WITH DIFF 2022-02-13 09:40:00 Radha Sofia [facility] BASIC METABOLIC PANEL (NA, 2022-02-13 09:40:00 Sofia Garcia [facility] K, CL, CO2, GLUCOSE, BUN, Medica l Branch CREATININE, CA) CBC WITH DIFF 2022-02-13 09:40:00 Sofia Garcia [facility] TROPONIN I 2022-02-11 23:41:00 Sofia Garcia [facility] N-TERMINAL PRO-BNP 2022-02-11 23:41:00 Sofia Garcia [facility] TROPONIN I 2022-02-11 23:41:00 Sofia Garcia [facility] N-TERMINAL PRO-BNP 2022-02-11 23:41:00 Sofia Garcia [facility] HB ECG ROUTINE & RHYTHM 2022-02-11 22:15:36 Sofia Garcia [facility] TRANSTHORACIC ECHO (TTE) 2022-02-11 21:26:50 [facility] 2022-02-11 21:26:50 [facility] 2022-02-11 07:45:43 Reilly Means [facility] CONTRAST [facility] CT ABDOMEN PELVIS W 2022-02-11 07:45:43 Reilly Means [facility] CONTRAST [facility] RAPID INFLUENZA A/B 2022-02-11 06:54:00 Reilly Means [...] BLOOD CULTURE SCREEN 2022-02-11 04:58:00 Reilly Means [facility] TROPONIN I 2022-02-11 04:58:00 [facility] COMP. METABOLIC PANEL 2022-02-11 04:58:00 Reilly Means [facility] ([id number]) [facility] CBC WITH DIFF 2022-02-11 04:58:00 [facility] PROTHROMBIN TIME / INR 2022-02-11 04:58:00 Reilly Means [facility] ACTIVATED PARTIAL THRMPLAS 2022-02-11 04:58:00 Reilly Means [facility] N-TERMINAL PRO-BNP 2022-02-11 04:58:00 Reilly Means [facility] LACTIC ACID WHOLE BLOOD 2022-02-11 04:58:00 Reilly Means [facility] COVID-19 (ID NOW RAPID 2022-02-11 04:58:00 eRilly Means [facility] TESTING) Medical Branch LAB ONLY COVID 2022-02-11 04:58:00 Reilly Means [facility] CBC WITH DIFF 2022-02-11 04:58:00 Reilly [facility] ACTIVATED PARTIAL THRMPLAS 2022-02-11 04:58:00 Reilly Means [facility] PROTHROMBIN TIME / INR 2022-02-11 04:58:00 Reilly Means [facility] COVID-19 (ID NOW RAPID 2022-02-11 04:58:00 Reilly Means [facility] TESTING) Medical Branch COMP. METABOLIC PANEL 2022-02-11 04:58:00 Reilly Means [facility] ([id number]) Medical Branch TROPONIN I 2022-02-11 04:58:00 Reilly [facility] N-TERMINAL PRO-BNP 2022-02-11 04:58:00 Reilly Means [facility] BLOOD CULTURE SCREEN 2022-02-11 04:58:00 Reilly Means [facility] LACTIC ACID WHOLE BLOOD 2022-02-11 04:58:00 Reilly Means [facility] LAB ONLY COVID 2022-02-11 04:58:00 Reilly Means [facility] XR CHEST 1 VW 2022-02-11 04:27:42 Reilly Means [facility] [place] XR CHEST 1 VW 2022-02-11 04:27:42 [facility] HOSPITAL ADMISSION 2022-02-10 05:01:00 Doctor Unassigned, [facility] Name Medical [place] HOSPITAL ADMISSION 2022-02-10 05:01:00 Doctor Unassigned, [facility] Name Medical Branch ECG 12-LEAD 2021-07-14 15:14:00 Elan Lira [facility] [id number] 2021-06-17 00:00:00 RIKY Freedman [facility] GASTROINTESTINAL PANEL 2020-12-08 22:21:00 CadeEliseo arredondo [facility] XR ABDOMEN 1 VW 2020-12-08 18:06:32 Jailyn Eliseo Jean spital OR [place] < 1 HOUR 2020-09-05 22:39:00 Jailyn Elise[facility] SURGICAL PATHOLOGY REQUEST 2020-09-05 21:54:00 Eliseo Arce [facility] XR CHEST 1 VW PORTABLE 2020-09-05 19:55:00 [facility] DIS[facility]GE PATIENT 2020-09-05 17:27:55 Lucas Harris [facility] MI AN ELECTIVE 2020-09-05 16:47:23 [facility], INTRAOPERATIVE 2020-09-05 16:27:00 [facility] 2020-09-05 15:04:00 [facility] TIME (PTT) M. PROTHROMBIN TIME WITH INR 2020-09-05 15:04:00 Mindy Maharaj [facility] M. Plan of Care Planned Activity Planned Date Details Comments Source Future Scheduled 2022-09-10 SHINGLES VACCINES (1 Met [facility] Test 15:06:53 of 2) [code = SHINGLES VACCINES (1 of 2)] Future Scheduled 2022-09-10 BREAST CANCER [facility] Test 15:06:53 SCREENING [code = BREAST CANCER SCREENING] Future Scheduled 2022-09-10 COLONOSCOPY SCREENING [facility] Test 15:06:53 [code = COLONOSCOPY SCREENING] Future Scheduled 2022-09-10 HEPATITIS B VACCINES Met [facility] Test 15:06:53 (1 of 3 - Risk 3-dose series) [code = HEPATITIS B VACCINES (1 of 3 - Risk 3-dose series)] Future Scheduled 2022-09-10 COVID-19 VACCINE (3 - [facility] Test 15:06:53 Booster for Pfizer series) [code = COVID-19 VACCINE (3 - Booster for Pfizer series)] Future Scheduled 2022-09-10 65+ PNEUMOCOCCAL [facility] Test 15:06:53 VACCINE (4 - PPSV23 if available, else PCV20) [code = 65+ PNEUMOCOCCAL VACCINE (4 - PPSV23 if available, else PCV20)] Future Scheduled 2022-09-10 INFLUENZA VACCINE Method [facility] Test 15:06:53 [code = INFLUENZA VACCINE] Future Scheduled 2022-09-10 SHINGLES VACCINES (1 Met [facility] Test 15:06:53 of 2) [code = SHINGLES VACCINES (1 of 2)] Future Scheduled 2022-09-10 BREAST CANCER [facility] Test 15:06:53 SCREENING [code = BREAST CANCER SCREENING] Future Scheduled 2022-09-10 COLONOSCOPY SCREENING [facility] Test 15:06:53 [code = COLONOSCOPY SCREENING] Future Scheduled 2022-09-10 HEPATITIS B VACCINES Met [facility] Test 15:06:53 (1 of 3 - Risk 3-dose series) [code = HEPATITIS B VACCINES (1 of 3 - Risk 3-dose series)] Future Scheduled 2022-09-10 COVID-19 VACCINE (3 - Me [facility] Test 15:06:53 Booster for Pfizer series) [code = COVID-19 VACCINE (3 - Booster for Pfizer series)] Future Scheduled 2022-09-10 65+ [facility]AL [facility]:06:53 VACCINE (4 - PPSV23 if available, else PCV20) [code = 65+ PNEUMOCOCCAL VACCINE (4 - PPSV23 if available, else PCV20)] Future Scheduled 2022-09-10 INFLUENZA VACCINE Method [facility] Test 15:06:53 [code = INFLUENZA VACCINE] Future Scheduled 2022-09-10 SHINGLES VACCINES (1 Met [facility] Test 15:06:53 of 2) [code = SHINGLES VACCINES (1 of 2)] Future Scheduled 2022-09-10 BREAST CANCER [facility] Test 15:06:53 SCREENING [code = BREAST CANCER SCREENING] Future Scheduled 2022-09-10 COLONOSCOPY SCREENING [facility] Test 15:06:53 [code = COLONOSCOPY SCREENING] Future Scheduled 2022-09-10 HEPATITIS B VACCINES Met [facility] Test 15:06:53 (1 of 3 - Risk 3-dose series) [code = HEPATITIS B VACCINES (1 of 3 - Risk 3-dose series)] Future Scheduled 2022-09-10 COVID-19 VACCINE (3 - Me [facility] Test 15:06:53 Booster for Pfizer series) [code = COVID-19 VACCINE (3 - Booster for Pfizer series)] Future Scheduled 2022-09-10 65+ PNEUMOCOCCAL [facility] Test 15:06:53 VACCINE (4 - PPSV23 if available, else PCV20) [code = 65+ PNEUMOCOCCAL VACCINE (4 - PPSV23 if available, else PCV20)] Future Scheduled 2022-09-10 INFLUENZA VACCINE Method [facility] Test 15:06:53 [code = INFLUENZA VACCINE] Future Scheduled 2022-09-10 SHINGLES VACCINES (1 Met [facility] Test 15:06:53 of 2) [code = SHINGLES VACCINES (1 of 2)] Future Scheduled 2022-09-10 BREAST CANCER [facility] Test 15:06:53 SCREENING [code = BREAST CANCER SCREENING] Future Scheduled 2022-09-10 COLONOSCOPY SCREENING [facility] Test 15:06:53 [code = COLONOSCOPY SCREENING] Future Scheduled 2022-09-10 HEPATITIS B VACCINES Met [facility] Test 15:06:53 (1 of 3 - Risk 3-dose series) [code = HEPATITIS B VACCINES (1 of 3 - Risk 3-dose series)] Future Scheduled 2022-09-10 COVID-19 VACCINE (3 - [facility] Test 15:06:53 Booster for Pfizer series) [code = COVID-19 VACCINE (3 - Booster for Pfizer series)] Future Scheduled 2022-09-10 65+ PNEUMOCOCCAL [facility] Test 15:06:53 VACCINE (4 - PPSV23 if available, else PCV20) [code = 65+ PNEUMOCOCCAL VACCINE (4 - PPSV23 if available, else PCV20)] Future Scheduled 2022-09-10 INFLUENZA VACCINE Method [facility] Test 15:06:53 [code = INFLUENZA VACCINE] Future Scheduled 2022-09-10 SHINGLES VACCINES (1 Met [facility] Test 15:06:53 of 2) [code = SHINGLES VACCINES (1 of 2)] Future Scheduled 2022-09-10 BREAST CANCER [facility] Test 15:06:53 SCREENING [code = BREAST CANCER SCREENING] Future Scheduled 2022-09-10 COLONOSCOPY SCREENING [facility] Test 15:06:53 [code = COLONOSCOPY SCREENING] Future Scheduled 2022-09-10 HEPATITIS B VACCINES Met [facility] Test 15:06:53 (1 of 3 - Risk 3-dose series) [code = HEPATITIS B VACCINES (1 of 3 - Risk 3-dose series)] Future Scheduled 2022-09-10 COVID-19 VACCINE (3 - Me [facility] Test 15:06:53 Booster for Pfizer series) [code = COVID-19 VACCINE (3 - Booster for Pfizer series)] Future Scheduled 2022-09-10 65[facility]:53 VACCINE (4 - PPSV23 if available, else PCV20) [code = 65+ PNEUMOCOCCAL VACCINE (4 - PPSV23 if available, else PCV20)] Future Scheduled 2022-09-10 INFLUENZA VACCINE Method [facility] Test 15:06:53 [code = INFLUENZA VACCINE] Future Scheduled 2022-08-26 SHINGLES VACCINES (1 Met [facility] Test 14:43:48 of 2) [code = SHINGLES VACCINES (1 of 2)] Future Scheduled 2022-08-26 BREAST CANCER [facility] Test 14:43:48 SCREENING [code = BREAST CANCER SCREENING] Future Scheduled 2022-08-26 COLONOSCOPY SCREENING [facility] Test 14:43:48 [code = COLONOSCOPY SCREENING] Future Scheduled 2022-08-26 HEPATITIS B VACCINES Met [facility] Test 14:43:48 (1 of 3 - Risk 3-dose series) [code = HEPATITIS B VACCINES (1 of 3 - Risk 3-dose series)] Future Scheduled 2022-08-26 COVID-19 VACCINE (3 - [facility] Test 14:43:48 Booster for Pfizer series) [code = COVID-19 VACCINE (3 - Booster for Pfizer series)] Future Scheduled 2022-08-26 65+ [facility] 14:43:48 VACCINE (4 - PPSV23 if available, else PCV20) [code = 65+ PNEUMOCOCCAL VACCINE (4 - PPSV23 if available, else PCV20)] Future Scheduled 2022-08-26 INFLUENZA VACCINE Method [facility] Test 14:43:48 [code = INFLUENZA VACCINE] Future Scheduled 2022-08-07 SHINGLES VACCINES (1 Met [facility] Test 23:30:11 of 2) [code = SHINGLES VACCINES (1 of 2)] Future Scheduled 2022-08-07 BREAST CANCER [facility] Test 23:30:11 SCREENING [code = BREAST CANCER SCREENING] Future Scheduled 2022-08-07 COLONOSCOPY SCREENING [facility] Test 23:30:11 [code = COLONOSCOPY SCREENING] Future Scheduled 2022-08-07 HEPATITIS B VACCINES Met [facility] Test 23:30:11 (1 of 3 - Risk 3-dose series) [code = HEPATITIS B VACCINES (1 of 3 - Risk 3-dose series)] Future Scheduled 2022-08-07 COVID-19 VACCINE (3 - Me [facility] Test 23:30:11 Booster for Pfizer series) [code = COVID-19 VACCINE (3 - Booster for Pfizer series)] Future Scheduled 2022-08-07 65+ [facility] 23:30:11 VACCINE (4 - PPSV23 if available, else PCV20) [code = 65+ PNEUMOCOCCAL VACCINE (4 - PPSV23 if available, else PCV20)] Future Scheduled 2022-08-07 INFLUENZA VACCINE Method [facility] Test 23:30:11 [code = INFLUENZA VACCINE] Future Scheduled 2022-08-07 SHINGLES VACCINES (1 Met [facility] Test 23:30:11 of 2) [code = SHINGLES VACCINES (1 of 2)] Future Scheduled 2022-08-07 BREAST CANCER [facility] Test 23:30:11 SCREENING [code = BREAST CANCER SCREENING] Future Scheduled 2022-08-07 COLONOSCOPY SCREENING [facility] Test 23:30:11 [code = COLONOSCOPY SCREENING] Future Scheduled 2022-08-07 HEPATITIS B VACCINES Met [facility] Test 23:30:11 (1 of 3 - Risk 3-dose series) [code = HEPATITIS B VACCINES (1 of 3 - Risk 3-dose series)] Future Scheduled 2022-08-07 COVID-19 VACCINE (3 - Me [facility] Test 23:30:11 Booster for Pfizer series) [code = COVID-19 VACCINE (3 - Booster for Pfizer series)] Future Scheduled 2022-08-07 65+ [facility] 23:30:11 VACCINE (4 - PPSV23 if available, else PCV20) [code = 65+ PNEUMOCOCCAL VACCINE (4 - PPSV23 if available, else PCV20)] Future Scheduled 2022-08-07 INFLUENZA VACCINE Method [facility] Test 23:30:11 [code = INFLUENZA VACCINE] Future Scheduled 2022-08-06 SHINGLES VACCINES (1 Met [facility] Test 15:48:02 of 2) [code = SHINGLES VACCINES (1 of 2)] Future Scheduled 2022-08-06 BREAST CANCER [facility] Test 15:48:02 SCREENING [code = BREAST CANCER SCREENING] Future Scheduled 2022-08-06 COLONOSCOPY SCREENING [facility] Test 15:48:02 [code = COLONOSCOPY SCREENING] Future Scheduled 2022-08-06 HEPATITIS B VACCINES Met [facility] Test 15:48:02 (1 of 3 - Risk 3-dose series) [code = HEPATITIS B VACCINES (1 of 3 - Risk 3-dose series)] Future Scheduled 2022-08-06 COVID-19 VACCINE (3 - Me [facility] Test 15:48:02 Booster for Pfizer series) [code = COVID-19 VACCINE (3 - Booster for Pfizer series)] Future Scheduled 2022-08-06 65+ [facility] 15:48:02 VACCINE (4 - PPSV23 if available, else PCV20) [code = 65+ PNEUMOCOCCAL VACCINE (4 - PPSV23 if available, else PCV20)] Future Scheduled 2022-08-06 INFLUENZA VACCINE Method [facility] Test 15:48:02 [code = INFLUENZA VACCINE] Future Scheduled 2022-06-11 SHINGLES VACCINES (1 Met [facility] Test 16:10:12 of 2) [code = SHINGLES VACCINES (1 of 2)] Future Scheduled 2022-06-11 BREAST CANCER [facility] Test 16:10:12 SCREENING [code = BREAST CANCER SCREENING] Future Scheduled 2022-06-11 COLONOSCOPY SCREENING [facility] Test 16:10:12 [code = COLONOSCOPY SCREENING] Future Scheduled 2022-06-11 HEPATITIS B VACCINES Met [facility] Test 16:10:12 (1 of 3 - Risk 3-dose series) [code = HEPATITIS B VACCINES (1 of 3 - Risk 3-dose series)] Future Scheduled 2022-06-11 COVID-19 VACCINE (3 - Me [facility] Test 16:10:12 Booster for Pfizer series) [code = COVID-19 VACCINE (3 - Booster for Pfizer series)] Future Scheduled 2022-06-11 65[facility]:10[facility]12 VACCINE (4 - PPSV23 if available, else PCV20) [code = 65+ PNEUMOCOCCAL VACCINE (4 - PPSV23 if available, else PCV20)] Future Scheduled 2022-06-11 INFLUENZA VACCINE Method [facility] Test 16:10:12 [code = INFLUENZA VACCINE] Future Scheduled 2022-06-11 SHINGLES VACCINES (1 Met [facility] Test 16:10:12 of 2) [code = SHINGLES VACCINES (1 of 2)] Future Scheduled 2022-06-11 BREAST CANCER [facility] Test 16:10:12 SCREENING [code = BREAST CANCER SCREENING] Future Scheduled 2022-06-11 COLONOSCOPY SCREENING [facility] Test 16:10:12 [code = COLONOSCOPY SCREENING] Future Scheduled 2022-06-11 HEPATITIS B VACCINES Met [facility] Test 16:10:12 (1 of 3 - Risk 3-dose series) [code = HEPATITIS B VACCINES (1 of 3 - Risk 3-dose series)] Future Scheduled 2022-06-11 COVID-19 VACCINE (3 - Me [facility] Test 16:10:12 Booster for Pfizer series) [code = COVID-19 VACCINE (3 - Booster for Pfizer series)] Future Scheduled 2022-06-11 65+ [facility] 16:10:12 VACCINE (4 - PPSV23 if available, else PCV20) [code = 65+ PNEUMOCOCCAL VACCINE (4 - PPSV23 if available, else PCV20)] Future Scheduled 2022-06-11 INFLUENZA VACCINE Method [facility] Test 16:10:12 [code = INFLUENZA VACCINE] Future Scheduled 2022-06-11 SHINGLES VACCINES (1 Met [facility] Test 16:10:12 of 2) [code = SHINGLES VACCINES (1 of 2)] Future Scheduled 2022-06-11 BREAST CANCER [facility] Test 16:10:12 SCREENING [code = BREAST CANCER SCREENING] Future Scheduled 2022-06-11 COLONOSCOPY SCREENING [facility] Test 16:10:12 [code = COLONOSCOPY SCREENING] Future Scheduled 2022-06-11 HEPATITIS B VACCINES Met [facility] Test 16:10:12 (1 of 3 - Risk 3-dose series) [code = HEPATITIS B VACCINES (1 of 3 - Risk 3-dose series)] Future Scheduled 2022-06-11 COVID-19 VACCINE (3 - [facility] Test 16:10:12 Booster for Pfizer series) [code = COVID-19 VACCINE (3 - Booster for Pfizer series)] Future Scheduled 2022-06-11 65+ [facility] 16:10:12 VACCINE (4 - PPSV23 if available, else PCV20) [code = 65+ PNEUMOCOCCAL VACCINE (4 - PPSV23 if available, else PCV20)] Future Scheduled 2022-06-11 INFLUENZA VACCINE Method [facility] Test 16:10:12 [code = INFLUENZA VACCINE] Future Scheduled 2022-06-11 SHINGLES VACCINES (1 Met [facility] Test 16:10:12 of 2) [code = SHINGLES VACCINES (1 of 2)] Future Scheduled 2022-06-11 BREAST CANCER [facility] Test 16:10:12 SCREENING [code = BREAST CANCER SCREENING] Future Scheduled 2022-06-11 COLONOSCOPY SCREENING [facility] Test 16:10:12 [code = COLONOSCOPY SCREENING] Future Scheduled 2022-06-11 HEPATITIS B VACCINES Met [facility] Test 16:10:12 (1 of 3 - Risk 3-dose series) [code = HEPATITIS B VACCINES (1 of 3 - Risk 3-dose series)] Future Scheduled 2022-06-11 COVID-19 VACCINE (3 - [facility] Test 16:10:12 Booster for Pfizer series) [code = COVID-19 VACCINE (3 - Booster for Pfizer series)] Future Scheduled 2022-06-11 65+ PNEUMOCOCCAL [facility] Test 16:10:12 VACCINE (4 - PPSV23 if available, else PCV20) [code = 65+ PNEUMOCOCCAL VACCINE (4 - PPSV23 if available, else PCV20)] Future Scheduled 2022-06-11 INFLUENZA VACCINE Method [facility] Test 16:10:12 [code = INFLUENZA VACCINE] Future Scheduled 2022-06-11 SHINGLES VACCINES (1 Met [facility] Test 16:10:12 of 2) [code = SHINGLES VACCINES (1 of 2)] Future Scheduled 2022-06-11 BREAST CANCER [facility] Test 16:10:12 SCREENING [code = BREAST CANCER SCREENING] Future Scheduled 2022-06-11 COLONOSCOPY SCREENING [facility] Test 16:10:12 [code = COLONOSCOPY SCREENING] Future Scheduled 2022-06-11 HEPATITIS B VACCINES Met [facility] Test 16:10:12 (1 of 3 - Risk 3-dose series) [code = HEPATITIS B VACCINES (1 of 3 - Risk 3-dose series)] Future Scheduled 2022-06-11 COVID-19 VACCINE (3 - Me [facility] Test 16:10:12 Booster for Pfizer series) [code = COVID-19 VACCINE (3 - Booster for Pfizer series)] Future Scheduled 2022-06-11 65[facility]:10[facility]12 VACCINE (4 - PPSV23 if available, else PCV20) [code = 65+ PNEUMOCOCCAL VACCINE (4 - PPSV23 if available, else PCV20)] Future Scheduled 2022-06-11 INFLUENZA VACCINE Method [facility] Test 16:10:12 [code = INFLUENZA VACCINE] Future Scheduled 2022-06-11 SHINGLES VACCINES (1 Met [facility] Test 16:10:12 of 2) [code = SHINGLES VACCINES (1 of 2)] Future Scheduled 2022-06-11 BREAST CANCER [facility] Test 16:10:12 SCREENING [code = BREAST CANCER SCREENING] Future Scheduled 2022-06-11 COLONOSCOPY SCREENING [facility] Test 16:10:12 [code = COLONOSCOPY SCREENING] Future Scheduled 2022-06-11 HEPATITIS B VACCINES Met [facility] Test 16:10:12 (1 of 3 - Risk 3-dose series) [code = HEPATITIS B VACCINES (1 of 3 - Risk 3-dose series)] Future Scheduled 2022-06-11 COVID-19 VACCINE (3 - Me [facility] Test 16:10:12 Booster for Pfizer series) [code = COVID-19 VACCINE (3 - Booster for Pfizer series)] Future Scheduled 2022-06-11 65+ [facility] 16:10:12 VACCINE (4 - PPSV23 if available, else PCV20) [code = 65+ PNEUMOCOCCAL VACCINE (4 - PPSV23 if available, else PCV20)] Future Scheduled 2022-06-11 INFLUENZA VACCINE Method [facility] Test 16:10:12 [code = INFLUENZA VACCINE] Future Scheduled 2022-06-11 SHINGLES VACCINES (1 Met [facility] Test 16:10:12 of 2) [code = SHINGLES VACCINES (1 of 2)] Future Scheduled 2022-06-11 BREAST CANCER [facility] Test 16:10:12 SCREENING [code = BREAST CANCER SCREENING] Future Scheduled 2022-06-11 COLONOSCOPY SCREENING [facility] Test 16:10:12 [code = COLONOSCOPY SCREENING] Future Scheduled 2022-06-11 HEPATITIS B VACCINES Met [facility] Test 16:10:12 (1 of 3 - Risk 3-dose series) [code = HEPATITIS B VACCINES (1 of 3 - Risk 3-dose series)] Future Scheduled 2022-06-11 COVID-19 VACCINE (3 - Me [facility] Test 16:10:12 Booster for Pfizer series) [code = COVID-19 VACCINE (3 - Booster for Pfizer series)] Future Scheduled 2022-06-11 65+ [facility] 16:10:12 VACCINE (4 - PPSV23 if available, else PCV20) [code = 65+ PNEUMOCOCCAL VACCINE (4 - PPSV23 if available, else PCV20)] Future Scheduled 2022-06-11 INFLUENZA VACCINE Method [facility] Test 16:10:12 [code = INFLUENZA VACCINE] Future Scheduled 2022-06-11 SHINGLES VACCINES (1 Met [facility] Test 16:10:12 of 2) [code = SHINGLES VACCINES (1 of 2)] Future Scheduled 2022-06-11 BREAST CANCER [facility] Test 16:10:12 SCREENING [code = BREAST CANCER SCREENING] Future Scheduled 2022-06-11 COLONOSCOPY SCREENING [facility] Test 16:10:12 [code = COLONOSCOPY SCREENING] Future Scheduled 2022-06-11 HEPATITIS B VACCINES Met [facility] Test 16:10:12 (1 of 3 - Risk 3-dose series) [code = HEPATITIS B VACCINES (1 of 3 - Risk 3-dose series)] Future Scheduled 2022-06-11 COVID-19 VACCINE (3 - [facility] Test 16:10:12 Booster for Pfizer series) [code = COVID-19 VACCINE (3 - Booster for Pfizer series)] Future Scheduled 2022-06-11 65+ [facility] 16:10:12 VACCINE (4 - PPSV23 if available, else PCV20) [code = 65+ PNEUMOCOCCAL VACCINE (4 - PPSV23 if available, else PCV20)] Future Scheduled 2022-06-11 INFLUENZA VACCINE Method [facility] Test 16:10:12 [code = INFLUENZA VACCINE] Future Scheduled 2022-06-11 SHINGLES VACCINES (1 Met [facility] Test 16:10:12 of 2) [code = SHINGLES VACCINES (1 of 2)] Future Scheduled 2022-06-11 BREAST CANCER [facility] Test 16:10:12 SCREENING [code = BREAST CANCER SCREENING] Future Scheduled 2022-06-11 COLONOSCOPY SCREENING Me [facility] Test 16:10:12 [code = COLONOSCOPY SCREENING] Future Scheduled 2022-06-11 HEPATITIS B VACCINES Met [facility] Test 16:10:12 (1 of 3 - [...] Future Scheduled 2022-05-10 SHINGLES VACCINES (1 Met [facility] Test 10:21:35 of 2) [code = SHINGLES VACCINES (1 of 2)] Future Scheduled 2022-05-10 BREAST CANCER [facility] Test 10:21:35 SCREENING [code = BREAST CANCER SCREENING] Future Scheduled 2022-05-10 COLONOSCOPY SCREENING [facility] Test 10:21:35 [code = COLONOSCOPY SCREENING] Future Scheduled 2022-05-10 HEPATITIS B VACCINES Met [facility] Test 10:21:35 (1 of 3 - [...] Future Scheduled 2022-05-10 SHINGLES VACCINES (1 Met [facility] Test 10:21:35 of 2) [code = SHINGLES VACCINES (1 of 2)] Future Scheduled 2022-05-10 BREAST CANCER [facility] Test 10:21:35 SCREENING [code = BREAST CANCER SCREENING] Future Scheduled 2022-05-10 COLONOSCOPY SCREENING [facility] Test 10:21:35 [code = COLONOSCOPY SCREENING] Future Scheduled 2022-05-10 HEPATITIS B VACCINES Met [facility] Test 10:21:35 (1 of 3 - Risk 3-dose series) [code = HEPATITIS B VACCINES (1 of 3 - Risk 3-dose series)] Future Scheduled 2022-05-10 COVID-19 VACCINE (3 - [facility] Test 10:21:35 Booster for Pfizer series) [code = COVID-19 VACCINE (3 - Booster for Pfizer series)] Future Scheduled 2022-05-10 65+ PNEUMOCOCCAL [facility] Test 10:21:35 VACCINE (4 - PPSV23 if available, else PCV20) [code = 65+ PNEUMOCOCCAL VACCINE (4 - PPSV23 if available, else PCV20)] Future Scheduled 2022-05-10 INFLUENZA VACCINE Method [facility] Test 10:21:35 [code = INFLUENZA VACCINE] Future Scheduled 2022-05-06 SHINGLES VACCINES (1 Met [facility] Test 14:03:13 of 2) [code = SHINGLES VACCINES (1 of 2)] Future Scheduled 2022-05-06 BREAST CANCER [facility] Test 14:03:13 SCREENING [code = BREAST CANCER SCREENING] Future Scheduled 2022-05-06 COLONOSCOPY SCREENING [facility] Test 14:03:13 [code = COLONOSCOPY SCREENING] Future Scheduled 2022-05-06 HEPATITIS B VACCINES Met [facility] Test 14:03:13 (1 of 3 - Risk 3-dose series) [code = HEPATITIS B VACCINES (1 of 3 - Risk 3-dose series)] Future Scheduled 2022-05-06 COVID-19 VACCINE (3 - [facility] Test 14:03:13 Booster for Pfizer series) [code = COVID-19 VACCINE (3 - Booster for Pfizer series)] Future Scheduled 2022-05-06 65[facility]:03:13 VACCINE (4 - PPSV23 if available, else PCV20) [code = 65+ PNEUMOCOCCAL VACCINE (4 - PPSV23 if available, else PCV20)] Future Scheduled 2022-05-06 INFLUENZA VACCINE Method [facility] Test 14:03:13 [code = INFLUENZA VACCINE] Future Scheduled 2022-04-30 SHINGLES VACCINES (1 Met [facility] Test 01:07:32 of 2) [code = SHINGLES VACCINES (1 of 2)] Future Scheduled 2022-04-30 BREAST CANCER [facility] Test 01:07:32 SCREENING [code = BREAST CANCER SCREENING] Future Scheduled 2022-04-30 COLONOSCOPY SCREENING [facility] Test 01:07:32 [code = COLONOSCOPY SCREENING] Future Scheduled 2022-04-30 HEPATITIS B VACCINES Met [facility] Test 01:07:32 (1 of 3 - Risk 3-dose series) [code = HEPATITIS B VACCINES (1 of 3 - Risk 3-dose series)] Future Scheduled 2022-04-30 COVID-19 VACCINE (3 - [facility] Test 01:07:32 Booster for Pfizer series) [code = COVID-19 VACCINE (3 - Booster for Pfizer series)] Future Scheduled 2022-04-30 65+ [facility] 01:07:32 VACCINE (4 - PPSV23 if available, else PCV20) [code = 65+ PNEUMOCOCCAL VACCINE (4 - PPSV23 if available, else PCV20)] Future Scheduled 2022-04-30 INFLUENZA VACCINE Method [facility] Test 01:07:32 [code = INFLUENZA VACCINE] Future Scheduled 2022-04-30 SHINGLES VACCINES (1 Met [facility] Test 01:07:32 of 2) [code = SHINGLES VACCINES (1 of 2)] Future Scheduled 2022-04-30 BREAST CANCER [facility] Test 01:07:32 SCREENING [code = BREAST CANCER SCREENING] Future Scheduled 2022-04-30 COLONOSCOPY SCREENING [facility] Test 01:07:32 [code = COLONOSCOPY SCREENING] Future Scheduled 2022-04-30 HEPATITIS B VACCINES Met [facility] Test 01:07:32 (1 of 3 - Risk 3-dose series) [code = HEPATITIS B VACCINES (1 of 3 - Risk 3-dose series)] Future Scheduled 2022-04-30 COVID-19 VACCINE (3 - [facility] Test 01:07:32 Booster for Pfizer series) [code = COVID-19 VACCINE (3 - Booster for Pfizer series)] Future Scheduled 2022-04-30 65+ PNEUMOCOCCAL [facility] Test 01:07:32 VACCINE (4 - PPSV23 if available, else PCV20) [code = 65+ PNEUMOCOCCAL VACCINE (4 - PPSV23 if available, else PCV20)] Future Scheduled 2022-04-30 INFLUENZA VACCINE Method [facility] Test 01:07:32 [code = INFLUENZA VACCINE] Future Scheduled 2022-04-30 SHINGLES VACCINES (1 Met [facility] Test 01:07:32 of 2) [code = SHINGLES VACCINES (1 of 2)] Future Scheduled 2022-04-30 BREAST CANCER [facility] Test 01:07:32 SCREENING [code = BREAST CANCER SCREENING] Future Scheduled 2022-04-30 COLONOSCOPY SCREENING [facility] Test 01:07:32 [code = COLONOSCOPY SCREENING] Future Scheduled 2022-04-30 HEPATITIS B VACCINES Met [facility] Test 01:07:32 (1 of 3 - Risk 3-dose series) [code = HEPATITIS B VACCINES (1 of 3 - Risk 3-dose series)] Future Scheduled 2022-04-30 COVID-19 VACCINE (3 - [facility] Test 01:07:32 Booster for Pfizer series) [code = COVID-19 VACCINE (3 - Booster for Pfizer series)] Future Scheduled 2022-04-30 65+ PNEUMOCOCCAL [facility] Test 01:07:32 VACCINE (4 - PPSV23 if available, else PCV20) [code = 65+ PNEUMOCOCCAL VACCINE (4 - PPSV23 if available, else PCV20)] Future Scheduled 2022-04-30 INFLUENZA VACCINE Method [facility] Test 01:07:32 [code = INFLUENZA VACCINE] Future Scheduled 2022-04-25 SHINGLES VACCINES (1 Met [facility] Test 01:45:02 of 2) [code = SHINGLES VACCINES (1 of 2)] Future Scheduled 2022-04-25 BREAST CANCER [facility] Test 01:45:02 SCREENING [code = BREAST CANCER SCREENING] Future Scheduled 2022-04-25 COLONOSCOPY SCREENING [facility] Test 01:45:02 [code = COLONOSCOPY SCREENING] Future Scheduled 2022-04-25 HEPATITIS B VACCINES Met [facility] Test 01:45:02 (1 of 3 - Risk 3-dose series) [code = HEPATITIS B VACCINES (1 of 3 - Risk 3-dose series)] Future Scheduled 2022-04-25 COVID-19 VACCINE (3 - Me [facility] Test 01:45:02 Booster for Pfizer series) [code = COVID-19 VACCINE (3 - Booster for Pfizer series)] Future Scheduled 2022-04-25 65+ [facility]AL [facility] 01:[facility]:02 VACCINE (4 - PPSV23 if available, else PCV20) [code = 65+ PNEUMOCOCCAL VACCINE (4 - PPSV23 if available, else PCV20)] Future Scheduled 2022-04-25 INFLUENZA VACCINE Method [facility] Test 01:45:02 [code = INFLUENZA VACCINE] Future Scheduled 2022-03-25 SHINGLES VACCINES (1 Met [facility] Test 14:48:42 of 2) [code = SHINGLES VACCINES (1 of 2)] Future Scheduled 2022-03-25 BREAST CANCER [facility] Test 14:48:42 SCREENING [code = BREAST CANCER SCREENING] Future Scheduled 2022-03-25 COLONOSCOPY SCREENING [facility] Test 14:48:42 [code = COLONOSCOPY SCREENING] Future Scheduled 2022-03-25 HEPATITIS B VACCINES Met [facility] Test 14:48:42 (1 of 3 - Risk 3-dose series) [code = HEPATITIS B VACCINES (1 of 3 - Risk 3-dose series)] Future Scheduled 2022-03-25 COVID-19 VACCINE (3 - [facility] Test 14:48:42 Booster for Pfizer series) [...] Future Scheduled 2022-03-25 SHINGLES VACCINES (1 Met [facility] Test 14:48:42 of 2) [code = SHINGLES VACCINES (1 of 2)] Future Scheduled 2022-03-25 BREAST CANCER [facility] Test 14:48:42 SCREENING [code = BREAST CANCER SCREENING] Future Scheduled 2022-03-25 COLONOSCOPY SCREENING [facility] Test 14:48:42 [code = COLONOSCOPY SCREENING] Future Scheduled 2022-03-25 HEPATITIS B VACCINES Met [facility] Test 14:48:42 (1 of 3 - [...] Future Scheduled 2022-03-25 SHINGLES VACCINES (1 Met [facility] Test 14:48:42 of 2) [code = SHINGLES VACCINES (1 of 2)] Future Scheduled 2022-03-25 BREAST CANCER [facility] Test 14:48:42 SCREENING [code = BREAST CANCER SCREENING] Future Scheduled 2022-03-25 COLONOSCOPY SCREENING [facility] Test 14:48:42 [code = COLONOSCOPY SCREENING] Future Scheduled 2022-03-25 HEPATITIS B VACCINES Met [facility] Test 14:48:42 (1 of 3 - [...] Future Scheduled 2022-03-25 SHINGLES VACCINES (1 Met [facility] Test 14:48:42 of 2) [code = SHINGLES VACCINES (1 of 2)] Future Scheduled 2022-03-25 BREAST CANCER [facility] Test 14:48:42 SCREENING [code = BREAST CANCER SCREENING] Future Scheduled 2022-03-25 COLONOSCOPY SCREENING [facility] Test 14:48:42 [code = COLONOSCOPY SCREENING] Future Scheduled 2022-03-25 HEPATITIS B VACCINES Met [facility] Test 14:48:42 (1 of 3 - Risk 3-dose series) [code = HEPATITIS B VACCINES (1 of 3 - Risk 3-dose series)] Future Scheduled 2022-03-25 COVID-19 VACCINE (3 - Me [facility] Test 14:48:42 Booster for Pfizer series) [...] Future Scheduled 2022-03-25 SHINGLES VACCINES (1 Met [facility] Test 14:48:42 of 2) [code = SHINGLES VACCINES (1 of 2)] Future Scheduled 2022-03-25 BREAST CANCER [facility] Test 14:48:42 SCREENING [code = BREAST CANCER SCREENING] Future Scheduled 2022-03-25 COLONOSCOPY SCREENING [facility] Test 14:48:42 [code = COLONOSCOPY SCREENING] Future Scheduled 2022-03-25 HEPATITIS B VACCINES Met [facility] Test 14:48:42 (1 of 3 - Risk 3-dose series) [code = HEPATITIS B VACCINES (1 of 3 - Risk 3-dose series)] Future Scheduled 2022-03-25 COVID-19 VACCINE (3 - [facility] Test 14:48:42 Booster [...] Future Scheduled 2022-03-25 SHINGLES VACCINES (1 Met [facility] Test 14:48:42 of 2) [code = SHINGLES VACCINES (1 of 2)] Future Scheduled 2022-03-25 BREAST CANCER [facility] Test 14:48:42 SCREENING [code = BREAST CANCER SCREENING] Future Scheduled 2022-03-25 COLONOSCOPY SCREENING [facility] Test 14:48:42 [code = COLONOSCOPY SCREENING] Future Scheduled 2022-03-25 HEPATITIS B VACCINES Met [facility] Test 14:48:42 (1 of 3 - Risk 3-dose series) [code = HEPATITIS B VACCINES (1 of 3 - Risk 3-dose series)] Future Scheduled 2022-03-25 COVID-19 VACCINE (3 - [facility] Test 14:48:42 Booster for Pfizer series) [...] Future Scheduled 2022-03-25 SHINGLES VACCINES (1 Met [facility] Test 14:48:42 of 2) [code = SHINGLES VACCINES (1 of 2)] Future Scheduled 2022-03-25 BREAST CANCER [facility] Test 14:48:42 SCREENING [code = BREAST CANCER SCREENING] Future Scheduled 2022-03-25 COLONOSCOPY SCREENING [facility] Test 14:48:42 [code = COLONOSCOPY SCREENING] Future Scheduled 2022-03-25 HEPATITIS B VACCINES Met [facility] Test 14:48:42 (1 of 3 - Risk 3-dose series) [code = HEPATITIS B VACCINES (1 of 3 - Risk 3-dose series)] Future Scheduled 2022-03-25 COVID-19 VACCINE (3 - [facility] Test 14:48:42 Booster for Pfizer series) [code = COVID-19 VACCINE (3 - Booster for Pfizer series)] Future Scheduled 2022-03-25 65+ [facility] 14:[facility]:42 VACCINE (4 - PPSV23 if available, else PCV20) [code = 65+ PNEUMOCOCCAL VACCINE (4 - PPSV23 if available, else PCV20)] Future Scheduled 2022-03-25 INFLUENZA VACCINE Method [facility] Test 14:48:42 [code = INFLUENZA VACCINE] Future Scheduled 2022-03-25 SHINGLES VACCINES (1 Met [facility] Test 14:48:42 of 2) [code = SHINGLES VACCINES (1 of 2)] Future Scheduled 2022-03-25 BREAST CANCER [facility] Test 14:48:42 SCREENING [code = BREAST CANCER SCREENING] Future Scheduled 2022-03-25 COLONOSCOPY SCREENING [facility] Test 14:48:42 [code = COLONOSCOPY SCREENING] Future Scheduled 2022-03-25 HEPATITIS B VACCINES Met [facility] Test 14:48:42 (1 of 3 - Risk 3-dose series) [code = HEPATITIS B VACCINES (1 of 3 - Risk 3-dose series)] Future Scheduled 2022-03-25 COVID-19 VACCINE (3 - [facility] Test 14:48:42 Booster for Pfizer series) [code = COVID-19 VACCINE (3 - Booster for Pfizer series)] Future Scheduled 2022-03-25 65+ PNEUMOCOCCAL [facility] Test 14:48:42 VACCINE (4 - PPSV23 if available, else PCV20) [code = 65+ PNEUMOCOCCAL VACCINE (4 - PPSV23 if available, else PCV20)] Future Scheduled 2022-03-25 INFLUENZA VACCINE Method [facility] Test 14:48:42 [code = INFLUENZA VACCINE] Future Scheduled 2022-03-25 SHINGLES VACCINES (1 Met [facility] Test 14:48:42 of 2) [code = SHINGLES VACCINES (1 of 2)] Future Scheduled 2022-03-25 BREAST CANCER [facility] Test 14:48:42 SCREENING [code = BREAST CANCER SCREENING] Future Scheduled 2022-03-25 COLONOSCOPY SCREENING [facility] Test 14:48:42 [code = COLONOSCOPY SCREENING] Future Scheduled 2022-03-25 HEPATITIS B VACCINES Met [facility] Test 14:48:42 (1 of 3 - Risk 3-dose series) [code = HEPATITIS B VACCINES (1 of 3 - Risk 3-dose series)] Future Scheduled 2022-03-25 COVID-19 VACCINE (3 - Me [facility] Test 14:48:42 Booster for Pfizer series) [...] Future Scheduled 2022-03-04 SHINGLES VACCINES (1 Met [facility] Test 14:03:57 of 2) [code = SHINGLES VACCINES (1 of 2)] Future Scheduled 2022-03-04 BREAST CANCER [facility] Test 14:03:57 SCREENING [code = BREAST CANCER SCREENING] Future Scheduled 2022-03-04 COLONOSCOPY SCREENING [facility] Test 14:03:57 [code = COLONOSCOPY SCREENING] Future Scheduled 2022-03-04 HEPATITIS B VACCINES Met [facility] Test 14:03:57 (1 of 3 - Risk 3-dose series) [code = HEPATITIS B VACCINES (1 of 3 - Risk 3-dose series)] Future Scheduled 2022-03-04 COVID-19 VACCINE (3 - [facility] Test 14:03:57 Booster for Pfizer series) [code = COVID-19 VACCINE (3 - Booster for Pfizer series)] Future Scheduled 2022-03-04 65+ PNEUMOCOCCAL [facility] Test 14:03:57 VACCINE (4 - PPSV23 if available, else PCV20) [code = 65+ PNEUMOCOCCAL VACCINE (4 - PPSV23 if available, else PCV20)] Future Scheduled 2022-03-04 INFLUENZA VACCINE Method [facility] Test 14:03:57 [code = INFLUENZA VACCINE] Future Scheduled 2022-03-04 SHINGLES VACCINES (1 Met [facility] Test 14:03:57 of 2) [code = SHINGLES VACCINES (1 of 2)] Future Scheduled 2022-03-04 BREAST CANCER [facility] Test 14:03:57 SCREENING [code = BREAST CANCER SCREENING] Future Scheduled 2022-03-04 COLONOSCOPY SCREENING [facility] Test 14:03:57 [code = COLONOSCOPY SCREENING] Future Scheduled 2022-03-04 HEPATITIS B VACCINES Met [facility] Test 14:03:57 (1 of 3 - Risk 3-dose series) [code = HEPATITIS B VACCINES (1 of 3 - Risk 3-dose series)] Future Scheduled 2022-03-04 COVID-19 VACCINE (3 - [facility] Test 14:03:57 Booster for Pfizer series) [code = COVID-19 VACCINE (3 - Booster for Pfizer series)] Future Scheduled 2022-03-04 65+ PNEUMOCOCCAL [facility] Test 14:03:57 VACCINE (4 - PPSV23 if available, else PCV20) [code = 65+ PNEUMOCOCCAL VACCINE (4 - PPSV23 if available, else PCV20)] Future Scheduled 2022-03-04 INFLUENZA VACCINE Method [facility] Test 14:03:57 [code = INFLUENZA VACCINE] Future Scheduled 2022-03-04 SHINGLES VACCINES (1 Met [facility] Test 14:03:57 of 2) [code = SHINGLES VACCINES (1 of 2)] Future Scheduled 2022-03-04 BREAST CANCER [facility] Test 14:03:57 SCREENING [code = BREAST CANCER SCREENING] Future Scheduled 2022-03-04 COLONOSCOPY SCREENING [facility] Test 14:03:57 [code = COLONOSCOPY SCREENING] Future Scheduled 2022-03-04 HEPATITIS B VACCINES Met [facility] Test 14:03:57 (1 of 3 - Risk 3-dose series) [code = HEPATITIS B VACCINES (1 of 3 - Risk 3-dose series)] Future Scheduled 2022-03-04 COVID-19 VACCINE (3 - [facility] Test 14:03:57 Booster for Pfizer series) [...] Future Scheduled 2022-03-04 SHINGLES VACCINES (1 Met [facility] Test 14:03:57 of 2) [code = SHINGLES VACCINES (1 of 2)] Future Scheduled 2022-03-04 BREAST CANCER [facility] Test 14:03:57 SCREENING [code = BREAST CANCER SCREENING] Future Scheduled 2022-03-04 COLONOSCOPY SCREENING Me [facility] Test 14:03:57 [code = COLONOSCOPY SCREENING] Future Scheduled 2022-03-04 HEPATITIS B VACCINES Met [facility] Test 14:03:57 (1 of 3 - Risk 3-dose series) [code = HEPATITIS B VACCINES (1 of 3 - Risk 3-dose series)] Future Scheduled 2022-03-04 COVID-19 VACCINE (3 - [facility] Test 14:03:57 Booster for Pfizer series) [...] Future Scheduled 2022-02-11 SHINGLES VACCINES (1 Met [facility] Test 13:39:12 of 2) [code = SHINGLES VACCINES (1 of 2)] Future Scheduled 2022-02-11 BREAST CANCER [facility] Test 13:39:12 SCREENING [code = BREAST CANCER SCREENING] Future Scheduled 2022-02-11 COLONOSCOPY SCREENING [facility] Test 13:39:12 [code = COLONOSCOPY SCREENING] Future Scheduled 2022-02-11 HEPATITIS B VACCINES Met [facility] Test 13:39:12 (1 of 3 - Risk 3-dose series) [code = HEPATITIS B VACCINES (1 of 3 - Risk 3-dose series)] Future Scheduled 2022-02-11 COVID-19 VACCINE (3 - [facility] Test 13:39:12 Booster for Pfizer series) [...] Future Scheduled 2022-01-29 SHINGLES VACCINES (1 Met [facility] Test 14:07:20 of 2) [code = SHINGLES VACCINES (1 of 2)] Future Scheduled 2022-01-29 BREAST CANCER [facility] Test 14:07:20 SCREENING [code = BREAST CANCER SCREENING] Future Scheduled 2022-01-29 COLONOSCOPY SCREENING [facility] Test 14:07:20 [code = COLONOSCOPY SCREENING] Future Scheduled 2022-01-29 HEPATITIS B VACCINES Met [facility] Test 14:07:20 (1 of 3 - Risk 3-dose series) [code = HEPATITIS B VACCINES (1 of 3 - Risk 3-dose series)] Future Scheduled 2022-01-29 COVID-19 VACCINE (3 - [facility] Test 14:07:20 Booster for Pfizer series) [code = COVID-19 VACCINE (3 - Booster for Pfizer series)] Future Scheduled 2022-01-29 65+ PNEUMOCOCCAL [facility] Test 14:07:20 VACCINE (4 - PPSV23 or PCV20) [code = 65+ PNEUMOCOCCAL VACCINE (4 - PPSV23 or PCV20)] Future Scheduled 2022-01-29 INFLUENZA VACCINE Method [facility] Test 14:07:20 [code = INFLUENZA VACCINE] Future Scheduled 2022-01-29 SHINGLES VACCINES (1 Met [facility] Test 14:07:20 of 2) [code = SHINGLES VACCINES (1 of 2)] Future Scheduled 2022-01-29 BREAST CANCER [facility] Test 14:07:20 SCREENING [code = BREAST CANCER SCREENING] Future Scheduled 2022-01-29 COLONOSCOPY SCREENING [facility] Test 14:07:20 [code = COLONOSCOPY SCREENING] Future Scheduled 2022-01-29 HEPATITIS B VACCINES Met [facility] Test 14:07:20 (1 of 3 - Risk 3-dose series) [code = HEPATITIS B VACCINES (1 of 3 - Risk 3-dose series)] Future Scheduled 2022-01-29 COVID-19 VACCINE (3 - [facility] Test 14:07:20 Booster for Pfizer series) [code = COVID-19 VACCINE (3 - Booster for Pfizer series)] Future Scheduled 2022-01-29 65+ PNEUMOCOCCAL [facility] Test 14:07:20 VACCINE (4 - PPSV23 or PCV20) [code = 65+ PNEUMOCOCCAL VACCINE (4 - PPSV23 or PCV20)] Future Scheduled 2022-01-29 INFLUENZA VACCINE Method [facility] Test 14:07:20 [code = INFLUENZA VACCINE] Future Scheduled 2022-01-29 SHINGLES VACCINES (1 Met [facility] Test 14:07:20 of 2) [code = SHINGLES VACCINES (1 of 2)] Future Scheduled 2022-01-29 BREAST CANCER [facility] Test 14:07:20 SCREENING [code = BREAST CANCER SCREENING] Future Scheduled 2022-01-29 COLONOSCOPY SCREENING [facility] Test 14:07:20 [code = COLONOSCOPY SCREENING] Future Scheduled 2022-01-29 HEPATITIS B VACCINES Met [facility] Test 14:07:20 (1 of 3 - Risk 3-dose series) [code = HEPATITIS B VACCINES (1 of 3 - Risk 3-dose series)] Future Scheduled 2022-01-29 COVID-19 VACCINE (3 - [facility] Test 14:07:20 Booster for Pfizer series) [code = COVID-19 VACCINE (3 - Booster for Pfizer series)] Future Scheduled 2022-01-29 65+ PNEUMOCOCCAL [facility] Test 14:07:20 VACCINE (4 - PPSV23 or PCV20) [code = 65+ PNEUMOCOCCAL VACCINE (4 - PPSV23 or PCV20)] Future Scheduled 2022-01-29 INFLUENZA VACCINE Method [facility] Test 14:07:20 [code = INFLUENZA VACCINE] Future Scheduled 2022-01-29 SHINGLES VACCINES (1 Met [facility] Test 14:07:20 of 2) [code = SHINGLES VACCINES (1 of 2)] Future Scheduled 2022-01-29 BREAST CANCER [facility] Test 14:07:20 SCREENING [code = BREAST CANCER SCREENING] Future Scheduled 2022-01-29 COLONOSCOPY SCREENING [facility] Test 14:07:20 [code = COLONOSCOPY SCREENING] Future Scheduled 2022-01-29 HEPATITIS B VACCINES Met [facility] Test 14:07:20 (1 of 3 - Risk 3-dose series) [code = HEPATITIS B VACCINES (1 of 3 - Risk 3-dose series)] Future Scheduled 2022-01-29 COVID-19 VACCINE (3 - [facility] Test 14:07:20 Booster for Pfizer series) [code = COVID-19 VACCINE (3 - Booster for Pfizer series)] Future Scheduled 2022-01-29 65+ PNEUMOCOCCAL [facility] Test 14:07:20 VACCINE (4 - PPSV23 or PCV20) [code = 65+ PNEUMOCOCCAL VACCINE (4 - PPSV23 or PCV20)] Future Scheduled 2022-01-29 INFLUENZA VACCINE Method [facility] Test 14:07:20 [code = INFLUENZA VACCINE] Future Scheduled 2022-01-20 SHINGLES VACCINES (1 Met [facility] Test 06:12:34 of 2) [code = SHINGLES VACCINES (1 of 2)] Future Scheduled 2022-01-20 Screening for [facility] Test 06:12:34 malignant neoplasm of cervix (procedure) [code = [id number]] Future Scheduled 2022-01-20 BREAST CANCER [facility] Test 06:12:34 SCREENING [code = BREAST CANCER SCREENING] Future Scheduled 2022-01-20 COLONOSCOPY SCREENING [facility] Test 06:12:34 [code = COLONOSCOPY SCREENING] Future Scheduled 2022-01-20 HEPATITIS B VACCINES Met [facility] Test 06:12:34 (1 of 3 - Risk 3-dose series) [code = HEPATITIS B VACCINES (1 of 3 - Risk 3-dose series)] Future Scheduled 2022-01-20 COVID-19 VACCINE (3 - [facility] Test 06:12:34 Booster for Pfizer series) [code = COVID-19 VACCINE (3 - Booster for Pfizer series)] Future Scheduled 2022-01-20 65+ PNEUMOCOCCAL [facility] Test 06:12:34 VACCINE (4 - PPSV23 or PCV20) [code = 65+ PNEUMOCOCCAL VACCINE (4 - PPSV23 or PCV20)] Future Scheduled 2022-01-20 INFLUENZA VACCINE Method [facility] Test 06:12:34 [code = INFLUENZA VACCINE] Future Scheduled 2022-01-16 SHINGLES VACCINES (1 Met [facility] Test 12:09:25 of 2) [code = SHINGLES VACCINES (1 of 2)] Future Scheduled 2022-01-16 Screening for [facility] Test 12:09:25 malignant neoplasm of cervix (procedure) [code = [id number]] Future Scheduled 2022-01-16 BREAST CANCER [facility] Test 12:09:25 SCREENING [code = BREAST CANCER SCREENING] Future Scheduled 2022-01-16 COLONOSCOPY SCREENING [facility] Test 12:09:25 [code = COLONOSCOPY SCREENING] Future Scheduled 2022-01-16 HEPATITIS B VACCINES Met [facility] Test 12:09:25 (1 of 3 - Risk 3-dose series) [code = HEPATITIS B VACCINES (1 of 3 - Risk 3-dose series)] Future Scheduled 2022-01-16 COVID-19 VACCINE (3 - [facility] Test 12:09:25 Booster for Pfizer series) [code = COVID-19 VACCINE (3 - Booster for Pfizer series)] Future Scheduled 2022-01-16 65+ PNEUMOCOCCAL [facility] Test 12:09:25 VACCINE (4 - PPSV23 or PCV20) [code = 65+ PNEUMOCOCCAL VACCINE (4 - PPSV23 or PCV20)] Future Scheduled 2022-01-16 INFLUENZA VACCINE Method [facility] Test 12:09:25 [code = INFLUENZA VACCINE] Future Scheduled 2022-01-14 SHINGLES VACCINES (1 Met [facility] Test 04:11:46 of 2) [code = SHINGLES VACCINES (1 of 2)] Future Scheduled 2022-01-14 Screening for [facility] Test 04:11:46 malignant neoplasm of cervix (procedure) [code = [id number]] Future Scheduled 2022-01-14 BREAST CANCER [facility] Test 04:11:46 SCREENING [code = BREAST CANCER SCREENING] Future Scheduled 2022-01-14 COLONOSCOPY SCREENING [facility] Test 04:11:46 [code = COLONOSCOPY SCREENING] Future Scheduled 2022-01-14 HEPATITIS B VACCINES Met [facility] Test 04:11:46 (1 of 3 - Risk 3-dose series) [code = HEPATITIS B VACCINES (1 of 3 - Risk 3-dose series)] Future Scheduled 2022-01-14 COVID-19 VACCINE (3 - [facility] Test 04:11:46 Booster for Pfizer series) [code = COVID-19 VACCINE (3 - Booster for Pfizer series)] Future Scheduled 2022-01-14 65+ PNEUMOCOCCAL [facility] Test 04:11:46 VACCINE (4 - PPSV23 or PCV20) [code = 65+ PNEUMOCOCCAL VACCINE (4 - PPSV23 or PCV20)] Future Scheduled 2022-01-14 INFLUENZA VACCINE Method [facility] Test 04:11:46 [code = INFLUENZA VACCINE] Future Scheduled 2021-08-26 Screening for [facility] Test 13:02:23 malignant neoplasm of cervix (procedure) [code = [id number]] Future Scheduled 2021-08-26 BREAST CANCER [facility] Test 13:02:23 SCREENING [code = BREAST CANCER SCREENING] Future Scheduled 2021-08-26 COLONOSCOPY SCREENING [facility] Test 13:02:23 [code = COLONOSCOPY SCREENING] Future Scheduled 2021-08-26 Screening for [facility] Test 13:02:23 malignant neoplasm of lung (procedure) [code = [id number]] Future Scheduled 2021-08-26 SHINGLES VACCINES (#1) M [facility] Test 13:02:23 [code = SHINGLES VACCINES (#1)] Future Scheduled 2021-08-26 COVID-19 VACCINE (3 - [facility] Test 13:02:23 Pfizer risk 4-dose series) [code = COVID-19 VACCINE (3 - Pfizer risk 4-dose series)] Future Scheduled 2021-08-26 65[facility] 13:02:23 VACCINE (4 of 4 - PPSV23) [code = 65+ PNEUMOCOCCAL VACCINE (4 of 4 - PPSV23)] Future Scheduled 2021-08-26 INFLUENZA VACCINE Method [facility] Test 13:02:23 [code = INFLUENZA VACCINE] Encounters Start End Encounter Admission Attending Care Care Encounter Source Date/Time Date/Time Type Type Clinicians Facility Department ID 2022-02-18 Outpatient [facility] [id number] [place] 14:30:[address] [place] [address] 2021-07-14 Outpatient SADIKOVIC, [facility] [id number] [place] 09:33:51 [facility] [address] 2021-06-02 Outpatient HEMATPOUR, [facility] [id number] [place] 13:58:59 [facility]alt 2021-04-28 Outpatient HEMATPOUR, [facility] [id number] [place] 11:21:22 [facility] Healt h 2021-03-[address] [facility] [id number] [facility]12 Outpatient HEM[facility]OUR, [facility] [id number] [place] 08:16:46 [facility] Healt [facility] 2020-10-31 Outpatient HEMATPOUR, [facility] [id number] [place] 09:44:50 [facility] 2020-09-30 Outpatient HEMATPOUR, [facility] [id number] [place] 13:16:03 BEVERLY peterson 2022-09-26 2022-09-26 [facility] [id number] Univers 00:00:00 00:00:00 [facility] [id number] i ty [id number] [id number] [place] 2022-09-03 2022-09-03 Outpatient R [facility] [id number] Univers 11:00:00 11:00:00 [facility]-08-24 2022-08-24 Refill [facility], [id number] Univers 00:00:00 00:00:00 [place] [id number] ity of [id number] Medica l .8 Branch 2022-05-20 2022-05-20 Telephone [facility] [id number] Univers 00:00:00 00:00:00 [facility] [id number] i [id number] [id number] [address] 2022-05-10 2022-05-10 Emergency X [place], [facility] ERT [id number] Univers 10:30:00 16:31:00 HOME ity [facility] 2022-05-10 2022-05-10 Emergency [place], TRAUMA 1.2.840.114 99 [id number] Univers 10:30:00 16:31:00 Home B CENTER 350.1.13.10 [place] y [place].2.[address] [place] [id number] [facility] 014 [address] 2022-05-10 2022-05-10 Telephone [facility] 1.2.840.114 99 [id number] Univers 00:00:00 00:00:00 [facility] 350.1.13.10 i ty of [place] [id number] [address] 2022-05-08 2022-05-08 Emergency [facility] [id number] Univers 16:18:00 18:42:[address] [facility] 2022-05-08 2022-05-08 Emergency [facility] 1.2.840.114 99 [id number] Univers 16:18:00 18:42:00 Theresa BULLOCK 350.1.13.10 ity of [place] 4.2.7.2.686 [facility] [phone] [address] 2022-05-07 2022-05-07 Telephone [facility] 1.2.840.114 99 [id number] Univers 00:00:00 00:00:00 [facility] 350.1.13.10 i ty [place] [id number] [address] 2022-05-06 2022-05-06 Emergency [facility] ERT [id number] Univers 14:13:00 18:19:[address] [facility] 2022-05-06 2022-05-06 Emergency [facility] 1.2.967.773 [id number] Univers 14:13:00 18:19:00 Anette BULLOCK 350.1.13.10 ity of [place] 4.2.7.2.686 [facility] [id number] [address] 2022-05-06 2022-05-06 Telephone [facility] 1.2.840.114 99 [id number] Univers 00:00:00 00:00:00 [facility] 350.1.13.10 i ty [place] [id number] [address] 2022-04-22 2022-04-22 Emergency David [facility] ERT [id number] Univers 13:55:00 17:00:[address] [facility] 2022-04-22 2022-04-22 Emergency [facility] 1.2.287.133 [id number] Univers 13:55:00 17:00:00 Paulette BULLOCK 350.1.13.10 i ty [place] [id number] [facility] [address] [place] 2022-04-07 2022-04-07 Outpatient R [facility] [id number] Univers 20:40:00 20:40:[address] [facility] 2022-04-07 2022-04-07 Telephone Devin, 1.2.840.4 [id number] [id number] Univers 00:00:00 00:00:00 Robbi Hairston 36738.1.1 i ty of 3.104.2.7 [place] .3.245005 Medica l .8 [place] 2022-03-05 2022-03-05 Enterprise Architect Santiago Cardenas 1.2.840.1 [id number] Univers 13:45:00 14:00:[address] [facility] 73038.1.1 ity of 3.104.2.7 [place] .3.764921 Medica l .8 [place] 2022-03-05 2022-03-05 Office RonaldJOSÉ ANTONIO 1.2.178.552 8773 8469 Univers 13:00:00 13:30:00 Visit Santiago [facility] 350.1.13.10 i ty of [facility] 4.2.7.2.686 [facility] [phone] [place] 983959 [place] 2022-03-05 2022-03-05 Outpatient R [facility] [id number] Univers 13:00:00 13:00:[address] [facility] 2022-02-26 2022-02-26 Outpatient R [facility] [id number] Univers 08:30:00 08:30:[address] [facility] 2022-02-26 2022-02-26 Outpatient R [facility] [id number] Univers 08:30:00 08:30:00 SANTIAGO [facility] 2022-02-17 2022-02-17 Transition Stevo, 1.2.840.1 [id number] Univers 00:00:00 00:00:00 of Care Isaias Arredondo 92067.1.1 it y of 3.104.2.7 [place] .3.342452 Medica l .8 Branch 2022-02-10 2022-02-16 Inpatient X FRANK [facility] FAVIO [id number] Univers 22:59:00 19:27:00 PETER ity of [facility] 2022-02-10 2022-02-16 Hospital Reilly Means 1.2.840.1 [id number] Univers 22:59:00 19:27:00 Encounter Ofe Shields 85340.1.1 ity of [place] 3.[place].2.7 [place] .3.421776 Medica l .8 Branch 2022-02-11 2022-02-11 Telephone East, 1.2.840.1 [id number] Univers 00:00:00 00:00:00 Santiago 74800.1.1 ity of 3.104.2.7 [place] .3.760014 Medica l .8 Branch 2022-02-10 2022-02-10 Travel 1.2.840.1 1.2.865.107 4234 [id number] Univers 00:00:00 00:00:00 32942.1.1 350.1.13.10 ity of 3.104.2.7 4.[place].7.3.698 [place] .3.916125 084.8 Medica l .8 [place] 2022-01-30 2022-01-30 Telephone East, 1.2.840.5 [id number] Univers 00:00:00 00:00:00 Santiago 00973.1.1 ity of 3.104.2.7 [place] .3.989848 Medica l .8 Branch 2022-01-06 2022-01-06 Orders Doctor FERMIN 1.2.840.114 [id number] Univers 00:00:00 00:00:00 Only Unassigned, JACKELINE 350.1.13.10 ity of [place] [facility] 4.2.7.2.686 Yomi as [phone] [facility] porfirio 00[address] [place] 2021-12-25 2021-12-25 Orders Doctor CHRISTENSEN 1.2.840.114 [id number] Univers 00:00:00 00:00:00 Only Unassigned, JACKELINE 350.1.13.10 ity of [place] [facility] 4.2.7.2.[id number] [facility] 009 [address] 2021-12-12 2021-12-13 Emergency X Bill COLES [facility] ERT [id number] Univers 23:53:00 01:52:[address] [facility] 2021-12-12 2021-12-13 Emergency Bill Coles [facility] 1.2.840.114 [id number] Univers 23:53:00 01:52:00 Kiersten BULLOCK 350.1.13.10 i ty [place]7.2.[place] [facility] [id number] [facility] 084 [address] 2021-11-20 2021-11-[address] [facility]ERSIT 1.2.840.114 [id number] Univers 09:45:00 10:00:00 Visit [facility] 350.1.13.10 ity of [facility] 4.2.7.2.[address] [place] [id number] [facility] 316 [address] 2021-11-20 2021-11-20 Office [facility] 1.2.917.050 0159 9084 Univers 08:30:00 09:00:00 Visit [facility] 350.1.13.10 i ty of [facility] 4.2.7.2.[address] [place] [id number] [facility] 089 [address] 2021-11-20 2021-11-20 Outpatient R [facility] [id number] Univers 08:30:00 08:30:00 [facility] 2021-11-20 2021-11-20 Outpatient R [facility] [id number] Univers 08:30:00 08:30:00 [facility] 2021-11-20 2021-11-20 Outpatient R [facility] [id number] Univers 08:30:00 08:30:00 [facility] 2021-11-20 2021-11-20 Outpatient R [facility] [id number] Univers 08:30:00 08:30:00 [facility] 2021-10-24 2021-10-24 Emergency X ESVIN, [facility] ERT [id number] Univers 16:27:00 22:26:[address] [facility] 2021-10-24 2021-10-24 Emergency X ESVIN [facility] ERT [id number] Univers 16:27:00 22:26:[address] [facility] 2021-10-24 2021-10-24 Emergency Reilly Means [facility] 1.2.840. 114 [id number] Univers 16:27:00 22:26:00 Charity Mcallister 350.1.13.10 ity of [place] 4.2.7.2.686 [facility] [id number] [address] 2021-10-23 2021-10-24 Emergency X ESVIN, [facility] ERT [id number] Univers 20:22:00 02:57:[address] [facility] 2021-10-23 2021-10-24 Emergency Esvin [facility] 1.2.215.065 [id number] Univers 20:22:00 02:57:00 Charity BULLOCK 350.1.13.10 ity of [place] 4.2.7.2.686 [facility] [id number] [address] 2021-09-07 2021-09-07 Outpatient R SELF [facility] [id number] Univers 08:00:00 08:00:[address] [facility] 2021-09-07 2021-09-07 Outpatient R SELF, [facility] [id number] Univers 08:00:00 08:00:[address] [facility] 2021-08-21 2021-08-21 Outpatient R RONALD [facility] [id number] Univers 10:45:00 10:45:[address] [facility] 2021-08-21 2021-08-21 Enterprise Architect Santiago Cardenas 1.2.840.1 [id number] Univers 10:45:00 10:45:[address] [facility] 36296.1.1 ity of 3.104.2.7 [place] .3.105916 Medica l .8 Branch 2021-08-21 2021-08-21 Office East, 1.2.840.5 [id number] Univers 08:30:00 09:00:00 Visit Santiago 87066.1.1 ity of 3.104.2.7 [place] .3.951591 Medica l .8 Branch 2021-08-21 2021-08-21 Office East, UNIVERSIT 1.2.887.238 [id number] Univers 08:30:00 09:00:00 Visit Santiago [facility] 350.1.13.10 i ty of CLINICS 4[place].7.2.[address] [place] [id number] [facility] [address] [place] 2021-08-21 2021-08-21 Outpatient R [facility] [id number] Univers 08:30:00 08:30:[address] [facility] 2021-08-21 2021-08-21 Travel 1.2.840.1 1.2.563.608 4589 3865 Univers 00:00:00 00:00:00 22121.1.1 350.1.13.10 ity of 3.104.2.7 4.2.7.3.698 [place] .3.066269 084.8 Medica l .8 [place] 2021-08-14 2021-08-14 Telephone East, 1.2.840.1 [id number] Univers 00:00:00 00:00:00 Santiago 69603.1.1 ity of 3.104.2.7 [place] .3.121546 Medica l .8 [place] 2021-08-13 2021-08-13 Telephone East, 1.2.840.9 [id number] Univers 00:00:00 00:00:00 Santiago 08080.1.1 ity of 3.104.2.7 [place] .3.720816 Medica l .8 [place] 2021-08-11 2021-08-11 Outpatient R [facility] [id number] Univers 08:00:00 08:00:00 SANT[facility]AGO [facility] 2021-08-05 2021-08-05 Inpatient EDUARDO LealCL OUTD [id number] [facility] 05:24:00 05:24:00 Mike 31 [facility] 2021-07-20 2021-07-20 Outpatient R [facility] [id number] Univers 10:00:00 10:00:00 [facility] 2021-07-14 2021-07-14 Office Pankaj, UTP 6400 1.2.840.114 13 [id number] [place] 08:45:00 09:34:[address] 350.1.13.58 Health 9.2.7.2.686 [id number] 1 2021-07-09 2021-07-09 Telephone Maryjanepour, UTP 6400 1.2.840.114 [id number] [place] 00:00:00 00:00:[address] 350.1.13.58 Health 9.2.7.2.686 [id number] 1 2021-07-09 2021-07-09 Telephone Hematpour, UTP 6400 1.2.840.114 [id number] [place] 00:00:00 00:00:[address] 350.1.13.58 Health 9.2.7.2.686 [id number] 1 2021-07-03 2021-07-03 Outpatient R [facility] [id number] Univers 08:00:00 08:00:00 [facility] 2021-06-17 2021-06-17 Inpatient EDUARDO LealCL INTE.02 [id number] [facility] 10:56:00 14:36:00 Mike 47 [facility] 2021-06-15 2021-06-15 Outpatient R SELF, [facility] [id number] Univers 10:15:00 11:07:[address] [facility] 2021-06-15 2021-06-15 Outpatient R SELF, [facility] [id number] Univers 10:15:00 10:15:[address] [facility] 2021-06-15 2021-06-15 Outpatient R SELF, [facility] [id number] Univers 10:15:00 10:15:00 GADIEL maciely o f [facility] 2021-06-15 2021-06-15 Orders Doctor 1.2.840.4 [id number] Univers 00:00:00 00:00:00 Only Unassigned, 27866.1.1 ity of [place] 3.104.2.7 [place] .3.956676 Medica l .8 [place] 2021-06-15 2021-06-15 Travel 1.2.840.1 1.2.714.180 1013 [id number] Univers 00:00:00 00:00:00 22493.1.1 350.1.13.10 ity of 3.104.2.7 4.2.7.3.698 [place] .3.421573 084.8 Medica l .8 [place] 2021-06-11 2021-06-11 Refill East, UN[facility]ERS[facility] 1.2.428.906 1533 9185 Univers 00:00:00 00:00:00 [facility] 350.1.13.10 i ty of CL[place].2.[place] 130.6128475 [place] 983959 [place] 2021-06-11 2021-06-11 Refill East, 1.2.840.9 [id number] 185 Univers 00:00:00 00:00:00 Santiago 81663.1.1 ity of 3.104.2.7 [place] .3.791242 Medica l .8 [place] 2021-06-05 2021-06-05 Outpatient R EAST, [facility] [id number] Univers 09:00:00 09:00:00 SANTIAGO ity of [facility] 2021-06-02 2021-06-02 Telephone [facility], UNIVERSIT 1.2.840.114 [id number] Univers 00:00:00 00:00:00 [facility] 350.1.13.10 i ty of [place] [id number] [address] 2021-06-02 2021-06-02 Telephone East, 1.2.840.3 [id number] [id number] Univers 00:00:00 00:00:00 Santiago 03281.1.1 ity of 3.104.2.7 [place] .3.930490 Medica l .8 Branch 2021-05-29 2021-05-29 Telephone East, 1.2.840.9 [id number] [id number] Univers 00:00:00 00:00:00 Santiago 02220.1.1 ity of 3.104.2.7 [place] .3.036194 Medica l .8 Branch 2021-05-29 2021-05-29 Telephone East, 1.2.840.5 [id number] [id number] Univers 00:00:00 00:00:00 Santiago 19358.1.1 ity of 3.104.2.7 [place] .3.023560 Medica l .8 [place] 2021-05-25 2021-05-25 Outpatient R RODO, [facility] [id number] Univers 08:00:00 08:00:00 GADIEL barbosa o f [facility] 2021-04-29 2021-04-29 [facility] [id number] Univers 08:00:00 08:00:[address] [facility] 2021-04-28 2021-04-28 Telephone [place], UTP 6400 1.2.840.114 [id number] [place] 00:00:00 00:00:[address] 350.1.13.58 Health 9.2.7.2.686 [id number] 1 2021-04-28 2021-04-28 Telephone Jailyn, 1.2.840.8 [id number] 21 [id number] Methodi 00:00:00 00:00:[address] 3.430.2.7 Hospit a .3.767625 l .8 2021-03-31 2021-03-31 Orders Carol Ann, 1.2.840.1 [id number] 21 [id number] Methodi 00:00:00 00:00:00 Only Sarai M. 31407.1.1 979 s t 3.430.2.7 Hospit a .3.745864 l .8 2021-03-30 2021-03-30 Outpatient R RODO, [facility] [id number] Univers 08:45:00 08:45:00 GADIEL barbosa o f [facility] 2021-03-24 2021-03-24 Telephone Jailyn, 1.2.840.5 [id number] Methodi 00:00:00 00:00:[address] 3.430.2.7 Hospit a .3.896927 l .8 2021-02-13 2021-02-13 Telephone Ronald, 1.2.840.3 [id number] 876 [id number] Univers 00:00:00 00:00:00 Santiago 96916.1.1 ity of 3.104.2.7 [place] .3.249956 Medica l .8 [place] 2021-01-28 2021-01-28 [facility] [id number] Univers 08:45:00 09:37:00 NIKOLAI barbosa of [facility] 2021-01-28 2021-01-28 Travel 1.2.840.1 1.2.019.939 7830 9777 Univers 00:00:00 00:00:00 92400.1.1 350.1.13.10 ity of 3.104.2.7 4.[place].7.3.698 [place] .3.085894 084.8 Medica l .8 [place] 2021-01-19 2021-01-19 Telephone Pelletier, 1.2.840.1 [id number] 2100 [id number] Methodi 00:00:00 00:00:[address] 3.430.2.7 Hospit a .3.756039 l .8 2021-01-04 2021-01-04 Letter Shelia, 1.2.840.5 [id number] 696 Univers 00:00:00 00:00:00 (Out) Dagoberto Peterson 06055.1.1 ity of 3.104.2.7 [place] .3.564386 Medica l .8 Branch 2021-01-04 2021-01-04 Dmitry Bass, 1.2.840.2 [id number] 696 Univers 00:00:00 00:00:00 (Out) Dagoberto H 80294.1.1 ity of 3.104.2.7 [place] .3.270671 Medica l .8 Branch 2021-01-03 2021-01-03 Dmitry Bass, 1.2.840.6 [id number] [id number] 790 Univers 00:00:00 00:00:00 (Out) Dagoberto H 59337.1.1 ity of 3.104.2.7 [place] .3.838066 Medica l .8 Branch 2021-01-03 2021-01-03 Dmitry Bass, 1.2.840.0 [id number] 10868 790 Univers 00:00:00 00:00:00 (Out) Dagoberto H 20776.1.1 ity of 3.104.2.7 [place] .3.452521 Medica l .8 [place] 2021-01-02 2021-01-02 Outpatient R [facility] [id number] Univers 13:40:00 13:40:[address] [facility] 2021-01-02 2021-01-02 Laboratory Cuba Franks 1.2.840.6 [id number] [id number] Univers 12:14:13 12:57:34 Only Lab, [facility] [place] 86115.1.1 ity of 3.104.2.7 [place] .3.792462 Medica l .8 [place] 2021-01-02 2021-01-02 Laboratory [place] Franks 1.2.840.6 [id number] [id number] Univers 12:14:13 12:57:34 Only Lab, Adc [place]ob I 13321.1.1 ity of 3.104.2.7 [place] .3.332040 Medica l .8 [place] 2021-01-02 2021-01-02 Travel 1.2.840.1 1.2.320.920 9183 2306 Univers 00:00:00 00:00:00 59577.1.1 350.1.13.10 ity of 3.104.2.7 4.2.7.3.698 [place] .3.861723 084.8 Medica l .8 Branch 2021-01-02 2021-01-02 Letter Doctor 1.2.840.3 [id number] 948 Univers 00:00:00 00:00:00 (Out) Unassigned, 17543.1.1 ity of [place] 3.104.2.7 [place] .3.655327 Medica l .8 Branch 2021-01-02 2021-01-02 Letter Doctor 1.2.840.4 [id number] 946 Univers 00:00:00 00:00:00 (Out) Unassigned, 97511.1.1 ity of [place] 3.104.2.7 [place] .3.092675 Medica l .8 [place] 2021-01-02 2021-01-02 Travel 1.2.840.1 1.2.162.642 3938 2306 Univers 00:00:00 00:00:00 94001.1.1 350.1.13.10 ity of 3.104.2.7 4.2.7.3.698 [place] .3.211052 084.8 Medica l .8 Branch 2021-01-02 2021-01-02 Letter Doctor 1.2.840.7 [id number] 948 Univers 00:00:00 00:00:00 (Out) Unassigned, 20248.1.1 ity of [place] 3.104.2.7 [place] .3.776693 Medica l .8 Branch 2021-01-02 2021-01-02 Letter Doctor 1.2.840.5 [id number] 79875 946 Univers 00:00:00 00:00:00 (Out) Unassigned, 82847.1.1 ity of [place] 3.104.2.7 [place] .3.693913 Medica l .8 Branch 2020-12-22 2020-12-22 Telephone Devin, 1.2.840.6 [id number] 862 [id number] Univers 00:00:00 00:00:00 Rossandynda R 65023.1.1 i ty of 3.104.2.7 [place] .3.099462 Medica l .8 [place] 2020-12-22 2020-12-22 Telephone Devin, 1.2.840.5 [id number] 862 34166 [facility] 00:00:00 00:00:00 Roshunda R 03584.1.1 i ty of 3.104.2.7 [place] .3.124317 Medica l .8 [place] 2020-12-12 2020-12-12 Office Hematpour, UTP 6400 1.2.840.114 12 [id number] [place] 07:42:02 08:18:50 [facility] [facility] 350.1.13.58 Health 9.2.7.2.686 [id number] 1 2020-12-12 2020-12-12 Office Hematpour, UTP 6400 1.2.840.114 12 [id number] 07:42:02 08:18:50 [facility] [address] [facility] 350.1.13.58 9.2.7.2.686 [id number] 1 2020-12-09 2020-12-09 Telephone Carol Ann, 1.2.840.1 [id number] Methodi 00:00:00 00:00:00 Sarai CorbinChelsie 61075.1.1 316 s t 3.430.2.7 Hospit a .3.327536 l .8 2020-12-08 2020-12-08 [facility], 1.2.840.1 [id number] 2100 [id number] Methodi 12:35:54 23:59:00 Encounter Ray [address]54.1.[address] 3.430.2.7 Hospit a .3.099691 l .8 2020-12-08 2020-12-08 [facility], 1.2.840.1 [id number] 86905 44024 Methodi 17:25:00 17:30:[address] 3.430.2.7 Hospit a .3.320377 l .8 2020-12-08 2020-12-08 Office Jerehara, 1.2.840.1 [id number] 62269 75171 Methodi 10:30:00 11:39:56 Visit Ray [address]41.1.[address] 3.430.2.7 Hospit a .3.552038 l .8 2020-12-08 2020-12-08 Travel 1.2.840.1 1.2.713.292 6346 067671 Methodi 00:00:00 00:00:[address] 3.430.2.7 0.2.7.3.698 Ho spita .3.476427 084.8 l .8 2020-12-02 2020-12-02 Enterprise Architect Santiago Cardenas 1.2.840.1 [id number] Univers 10:20:06 10:36:[address] [facility] 77577.1.1 ity of 3.104.2.7 [place] .3.789477 Medica l .8 [place] 2020-12-02 2020-12-02 Enterprise Architect Santiago Cardenas 1.2.840.1 [id number] 316 [id number] Univers 10:20:06 10:36:[address] [facility] 46954.1.1 ity of 3.104.2.7 [place] .3.460338 Medica l .8 [place] 2020-12-02 2020-12-[address] [facility] UNIVERSIT 1.2.840.114 8 [id number] 10:20:06 10:36:19 Visit [facility] 350.1.13.10 CLINICS 4.2.7.2.686 [id number] 316 2020-12-02 2020-12-02 Office Ronald 1.2.840.8 [id number] 528 Univers 08:31:37 09:01:37 Visit Santiago 97650.1.1 ity of 3.104.2.7 [place] .3.926092 Medica l .8 [place] 2020-12-02 2020-12-02 Outpatient R RONALD [facility] [id number] Univers 09:00:00 09:00:00 SANTIAGO ity of [facility] 2020-11-25 2020-11-25 Office Devin, 1.2.840.7 [id number] 865 Univers 11:06:30 11:58:14 Visit Robbi Hairston 29607.1.1 i ty of 3.104.2.7 [place] .3.623345 Medica l .8 [place] 2020-11-25 2020-11-25 Office Devin, 1.2.840.1 [id number] 43490 865 Univers 11:06:30 11:58:14 Visit Robbi R 54504.1.1 i ty of 3.104.2.7 [place] .3.660203 Medica l .8 [place] 2020-11-25 2020-11-25 [facility] 1.2.840.114 [id number] 11:06:30 11:58:14 Visit Robbi Hairston [employer] TECHNICIAN 350.1.13.10 REGIONAL 4.2.7.2.686 MATERNAL [id number] & CHILD [address] [place] [address] 2020-11-25 2020-11-25 Outpatient R [facility] [id number] Univers 11:00:00 11:00:[address] [facility] 2020-11-25 2020-11-25 Telephone Devin, 1.2.840.7 [id number] 855 [id number] Univers 00:00:00 00:00:00 Robbi Hairston 84226.1.1 i ty of 3.104.2.7 [place] .3.784083 Medica l .8 [place] 2020-11-25 2020-11-25 [facility] 1.2.840.7 [id number] 02120 592 Univers 00:00:00 00:00:00 [place] 42648.1.1 ity of 3.104.2.7 [place] .3.031760 Medica l .8 [place] 2020-11-25 2020-11-25 Travel 1.2.840.1 1.2.455.748 4419 0247 Univers 00:00:00 00:00:00 25806.1.1 350.1.13.10 ity of 3.104.2.7 4[place].3.698 [place] .3.732391 084.8 Medica l .8 [place] 2020-11-25 2020-11-25 Orders Doctor 1.2.840.3 [id number] 87064 064 Univers 00:00:00 00:00:00 Only Unassigned, 59017.1.1 ity of [place] 3.104.2.7 [place] .3.299076 Medica l .8 Branch 2020-11-25 2020-11-25 Telephone Beltran, 1.2.840.7 [id number] 855 [id number] Univers 00:00:00 00:00:00 Rossandynda R 74263.1.1 i ty of 3.104.2.7 [place] .3.807355 Medica l .8 Branch 2020-11-25 2020-11-25 Refill [facility], 1.2.840.4 [id number] 40506 592 Univers 00:00:00 00:00:00 [place] 36900.1.1 ity of 3.104.2.7 [place] .3.381777 Medica l .8 [place] 2020-11-25 2020-11-25 Travel 1.2.840.1 1.2.941.950 9441 0247 Univers 00:00:00 00:00:00 75516.1.1 350.1.13.10 ity of 3.104.2.7 4.[place]7.3.698 [place] .3.560057 084.8 Medica l .8 Branch 2020-11-25 2020-11-25 Orders Doctor 1.2.840.4 [id number] 41232 064 Univers 00:00:00 00:00:00 Only Unassigned, 89825.1.1 ity of [place] 3.104.2.7 [place] .3.946314 Medica l .8 Branch 2020-11-25 2020-11-25 [facility] 1.2.746.884 2183 4592 00:00:00 00:00:00 [facility] 350.1.13.10 CLINICS 4.2.7.2.686 [id number] 089 2020-11-25 2020-11-25 [facility] 1.2.381.031 5978 0821 00:00:00 00:00:00 Robbi Marika [employer] SET UP TECHNICIAN 350.1.13.10 [facility] 4.2.7.2.686 MATERNAL [id number] & CHILD [address] [place] [address] 2020-11-14 2020-11-14 Abstract Clark, 1.2.840.1 [id number] 00543 54293 Methodi 00:00:00 00:00:[address] 3.430.2.7 Hospit a .3.500265 l .8 2020-11-14 2020-11-14 Telephone Clark 1.2.840.1 [id number] 2100 085445 Methodi 00:00:00 00:00:[address] 3.430.2.7 Hospit a .3.470316 l .8 2020-11-12 2020-11-12 Outpatient R [facility] [id number] Univers 08:30:00 08:30:[address] [facility] 2020-11-07 2020-11-07 Telephone Agustina Ortiz 6400 1.2.840.11 4 [id number] [place] 00:00:00 00:00:[address] 350.1.13.58 Health 9.2.7.2.686 [id number] 1 2020-11-07 2020-11-07 Telephone KIMBERLEY Ortiz 6400 1.2.840.114 124 [id number] 00:00:00 00:00:[address] 350.1.13.58 9.2.7.2.686 [id number] 1 2020-10-31 2020-10-31 Office KIMBERLEY Layton 6400 1.2.840.114 12 [id number] [place] 07:54:00 09:45:[address] 350.1.13.58 Health 9.2.7.2.686 [id number] 1 2020-10-30 2020-10-30 Abstract Rody Maguire UTP 6400 1.2.840.1 14 [id number] [place] 00:00:00 00:00:[address] 350.1.13.58 Health 9.2.7.2.686 [id number] 1 2020-10-29 2020-10-29 Refill [place], 1.2.840.2 [id number] 76451 400 Univers 00:00:00 00:00:00 [place] 89416.1.1 ity of 3.104.2.7 [place] .3.551046 Medica l .8 [place] 2020-10-29 2020-10-29 Refill [place], 1.2.840.9 [id number] 48496 400 Univers 00:00:00 00:00:00 [place] 88424.1.1 ity of 3.104.2.7 [place] .3.386941 Medica l .8 [place] 2020-10-27 2020-10-27 Telephone Cadea, 1.2.840.9 [id number] 21 [id number] Methodi 00:00:00 00:00:[address] 3.430.2.7 Hospit a .3.202235 l .8 2020-10-24 2020-10-24 Telephone Rodas, 1.2.840.1 [id number] 2100 089547 Methodi 00:00:00 00:00:[address] 3.430.2.7 Hospit a .3.303111 l .8 2020-10-22 2020-10-22 Outpatient R SELF, [facility] [id number] Univers 13:00:00 13:00:[address] [facility] 2020-10-22 2020-10-22 Travel 1.2.840.1 1.2.714.568 9636 3839 Univers 00:00:00 00:00:00 84510.1.1 350.1.13.10 ity of 3.104.2.7 [place].3.698 [place] .3.255759 084.8 Medica l .8 Branch 2020-10-22 2020-10-22 Travel 1.2.840.1 1.2.918.611 [id number] [facility] 00:00:00 00:00:00 98277.1.1 350.1.13.10 ity of 3.104.2.7 4[place].3.698 [place] .3.615558 084.8 Medica l .8 Branch 2020-10-13 2020-10-13 Outpatient R SELF, [facility] [id number] Univers 08:45:00 08:45:00 GADIEL ity o f [facility] 2020-10-06 2020-10-12 TelemedicVA [facility], 1.2.840.1 [id number] Methodi 15:30:00 00:08:46 ne Ray [address]38.1.[address] 3.430.2.7 Hospit a .3.237831 l .8 2020-09-30 2020-09-30 [facility] 1.2.840.1 [id number] Methodi 00:00:00 00:00:[address] 3.430.2.7 Hospit a .3.245792 l .8 2020-09-21 2020-09-21 Travel 1.2.840.1 1.2.853.221 8864 [id number] Methodi 00:00:00 00:00:[address] 3.430.2.7 0.2.7.3.698 Ho spita .3.688241 084.8 l .8 2020-09-06 2020-09-06 [facility] 1.2.840.1 [id number] Methodi 17:42:30 23:59:[address] 3.430.2.7 Hospit a .3.717195 l .8 2020-09-06 2020-09-06 [facility], 1.2.840.1 [id number] Methodi 16:50:00 17:41:00 Encounter Ray [address]644.1.[address] 3.430.2.7 Hospit a .3.023926 l .8 2020-09-05 2020-09-05 [facility], 1.2.840.1 [id number] Methodi 09:17:00 19:45:00 Encounter Ray [address]204.1.[address] 3.430.2.7 Hospit a .3.475826 l .8 2020-09-05 2020-09-05 Surgery [facility], 1.2.840.1 [id number] Methodi 11:30:00 13:15:[address] 3.430.2.7 Hospit a .3.340650 l .8 2020-09-05 2020-09-05 Anesthesia Remigio, 1.2.840.1 [id number] [id number] Methodi 11:27:00 12:20:00 Event Saraswathi 46566.1.1 243 s t V. 3.430.2.7 Hospit a .3.106762 l .8 2020-09-05 2020-09-05 Travel 1.2.840.1 1.2.055.909 4430 [id number] Methodi 00:00:00 00:00:[address] 3.430.2.7 0.2.7.3.698 spita .3.518049 084.8 l .8 2020-09-04 2020-09-04 Telephone Carol Ann, 1.2.840.1 [id number] Methodi 00:00:00 00:00:00 Sarai M. 26901.1.1 762 s t 3.430.2.7 Hospit a .3.504127 l .8 2020-09-02 2020-09-02 Telephone Carol Ann, 1.2.840.6 [id number] Methodi 00:00:00 00:00:00 Sarai M. 56069.1.1 344 s t 3.430.2.7 Hospit a .3.861989 l .8 2020-08-29 2020-08-30 [facility] [id number] [facility] 10:20:00 14:10:00 Outpatient r [place] 00 l [facility] 2020-08-29 2020-08-30 Outpatient HEMATPOUR, [facility] CAR 7500 [facility] 05:20:00 09:10:00 [place] 2020-08-06 2020-08-06 Office [place], 1.2.840.5 [id number] Univers 08:03:23 09:17:49 Visit Santiago 61429.1.1 ity of 3.104.2.7 [place] .3.608144 Medica l .8 [place] 2020-08-06 2020-08-06 Outpatient R [facility] [id number] Univers 08:30:00 08:30:[address] [facility] 2020-07-14 2020-07-14 Outpatient R [facility] [id number] Univers 09:30:00 09:30:00 GADIEL barbosa o clark [facility] 2020-07-14 2020-07-14 Travel 1.2.840.1 1.2.286.160 0974 [id number] Univers 00:00:00 00:00:00 68565.1.1 350.1.13.10 ity of 3.104.2.7 4[place]7.3.698 [place] .3.925390 084.8 Medica l .8 [place] 2020-07-14 2020-07-14 Orders Doctor 1.2.840.8 [id number] Univers 00:00:00 00:00:00 Only Unassigned, 24790.1.1 ity of [place] 3.104.2.7 [place] .3.056288 Medica l .8 [place] 2020-06-16 2020-06-16 [facility] [id number] Univers 08:00:00 08:00:00 GADIEL barbosa o clark [facility] 2020-06-06 2020-06-06 Telephone East, 1.2.840.1 [id number] Univers 00:00:00 00:00:00 [place] 37852.1.1 ity of 3.104.2.7 [place] .3.957699 Medica l .8 Branch 2020-06-04 2020-06-04 Enterprise Architect [place] Cardenas 1.2.840.1 [id number] Univers 09:31:58 09:40:[address] [facility] 04082.1.1 ity of 3.104.2.7 [place] .3.277684 Medica l .8 Branch 2020-06-04 2020-06-04 Office FRANCO Cardenas 1.2.669.494 4787 [id number] Univers 08:13:41 09:28:25 Visit [place] [facility] 350..13.10 i ty of CLINICS 4[place].[address] [place] [address] [facility] 089 Branch 2020-06-04 2020-06-04 Outpatient R [facility] [id number] Univers 08:30:00 08:30:00 SANTIAGO ity of [facility] 2020-06-04 2020-06-04 Orders Doctor 1.2.840.1 [id number] Univers 00:00:00 00:00:00 Only Unassigned, 60925.1.1 ity of [place] 3.104.2.7 [place] .3.158041 Medica l .8 Branch 2020-05-19 2020-05-19 Telephone East, 1.2.840.9 [id number] Univers 00:00:00 00:00:00 [place] 14761.1.1 ity of 3.104.2.7 [place] .3.204281 Medica l .8 Branch 2020-04-24 2020-04-24 Telephone [place], 1.2.840.5 [id number] Univers 00:00:00 00:00:00 [place] 67826.1.1 ity of 3.104.2.7 [place] .3.021722 Medica l .8 Branch 2020-04-14 2020-04-14 Outpatient R [facility] [id number] Univers 09:00:00 09:00:[address] [facility] 2020-04-14 2020-04-14 Telephone East, 1.2.840.6 [id number] Univers 00:00:00 00:00:00 [place] 66185.1.1 ity of 3.104.2.7 [place] .3.417597 Medica l .8 [place] 2020-03-31 2020-03-31 Outpatient R EAST, [facility] [id number] Univers 08:30:00 08:30:[address] [facility] 2020-03-03 2020-03-03 Outpatient R SELF, [facility] [id number] Univers 08:00:00 08:00:[address] [facility] 2020-03-03 2020-03-03 Outpatient R SELF, [facility] [id number] Univers 08:00:00 08:00:[address] [facility] 2020-03-03 2020-03-03 Travel 1.2.840.1 1.2.150.395 [id number] Univers 00:00:00 00:00:00 20283.1.1 350.1.13.10 ity of 3.104.2.7 4[place]7.3.698 [place] .3.565565 084.8 Medica l .8 [place] 2020-02-06 2020-02-06 Telephone East, 1.2.840.8 [id number] [id number] Univers 00:00:00 00:00:00 [place] 24034.1.1 ity of 3.104.2.7 [place] .3.379299 Medica l .8 [place] 2020-01-26 2020-01-26 Emergency Caridad, 1.2.840.9 [id number] [id number] Univers 10:03:00 13:05:00 Cynise 17697.1.1 ity of 3.104.2.7 [place] .3.615299 Medica l .8 Branch 2020-01-26 2020-01-26 Travel 1.2.840.1 1.2.399.124 [id number] [id number] Univers 00:00:00 00:00:00 71112.1.1 350.1.13.10 ity of 3.104.2.7 4[place]7.3.698 [place] .3.648483 084.8 Medica l .8 [place] 2020-01-25 2020-01-25 Outpatient R EAST, [facility] [id number] Univers 08:30:00 08:30:00 SANTIAGO ity of [facility] 2020-01-25 2020-01-25 Telemedici [place], 1.2.840.0 [id number] Univers 07:36:49 08:06:49 ne Visit [place] 99257.1.1 ity of 3.104.2.7 [place] .3.738225 Medica l .8 [place] 2020-01-16 2020-01-16 Outpatient R EAST, [facility] [id number] Univers 08:00:00 08:00:[address] [facility] 2020-01-16 2020-01-16 Telephone East, 1.2.840.5 [id number] Univers 00:00:00 00:00:00 [place] 81384.1.1 ity of 3.104.2.7 [place] .3.219986 Medica l .8 [place] 2020-01-14 2020-01-14 Outpatient R SELF, [facility] [id number] Univers 08:00:00 08:00:00 GADIEL barbosa o f [facility] 2019-12-31 2019-12-31 Outpatient R SELF, [facility] [id number] Univers 08:45:00 08:45:00 GADIEL ity o f [facility] 2019-10-17 2019-10-17 Outpatient R EAST, [facility] [id number] Univers 08:30:00 08:30:[address] [facility] 2019-10-12 2019-10-12 Outpatient R EAST, [facility] [id number] Univers 13:00:00 13:00:[address] [facility] 2019-10-12 2019-10-12 Telemedici [place], 1.2.840.5 [id number] Univers 07:38:30 08:08:30 ne Visit Santiago 35480.1.1 ity of 3.104.2.7 [place] .3.455632 Medica l .8 [place] 2019-10-08 2019-10-08 Outpatient R SELF, [facility] [id number] Univers 10:15:00 10:15:00 GADIEL ity o f [facility] 2019-10-03 2019-10-03 Jorge Hagen, 1.2.840.5 [id number] Univers 00:00:00 00:00:00 Management Michael Corbin 87304.1.1 i ty of 3.104.2.7 [place] .3.384558 Medica l .8 [place] 2019-09-27 2019-09-27 Telephone East, 1.2.840.1 [id number] Univers 00:00:00 00:00:00 [place] 48357.1.1 ity of 3.104.2.7 [place] .3.850106 Medica l .8 [place] 2019-09-04 2019-09-04 Refill East, 1.2.840.2 [id number] Univers 00:00:00 00:00:00 [place] 94446.1.1 ity of 3.104.2.7 [place] .3.019478 Medica l .8 [place] 2019-07-24 2019-07-24 [facility] [id number] Univers 08:30:00 08:30:[address] [facility] 2019-07-17 2019-07-17 Outpatient R [facility] [id number] Univers 10:00:00 10:00:[address] [facility] 2019-06-15 2019-06-15 Telephone East, 1.2.840.8 [id number] Univers 00:00:00 00:00:00 [place] 70183.1.1 ity of 3.104.2.7 [place] .3.752372 Medica l .8 [place] 2019-06-13 2019-06-13 Telephone Team, [facility] 1.2.840.2 [id number] Univers 00:00:00 00:00:00 Health 55004.1.1 [place]y [place].2.[place] .3.376853 Medica l .8 Branch 2019-05-10 2019-05-10 Refill Ronald, 1.2.840.1 [id number] Univers 00:00:00 00:00:00 [place] 07826.1.1 ity of 3.104.2.7 [place] .3.172340 Medica l .8 Branch 2019-05-09 2019-05-09 Refill Ronald, 1.2.840.2 [id number] Univers 00:00:00 00:00:00 [place] 46192.1.1 ity of 3.104.2.7 [place] .3.722693 Medica l .8 Branch 2019-04-30 2019-04-30 Outpatient R RODO [facility] [id number] Univers 10:15:00 10:33:05 GADIEL barbosa o f [facility] 2019-04-18 2019-04-18 Enterprise Architect RonaldSantiago 1.2.840.1 [id number] Univers 10:00:39 10:44:[address] [facility] 20862.1.1 ity of 3.104.2.7 [place] .3.197019 Medica l .8 Branch 2019-04-18 2019-04-18 Outpatient R RONALD [facility] [id number] Univers 10:00:00 10:44:31 SANTIAGO ity of [facility] 2019-04-18 2019-04-18 Office Ronald, 1.2.840.2 [id number] Univers 08:27:44 09:53:27 Visit [place] 35460.1.1 ity of 3.104.2.7 [place] .3.661963 Medica l .8 Branch 2019-04-18 2019-04-18 Orders Doctor 1.2.840.2 [id number] Univers 00:00:00 00:00:00 Only Unassigned, 99313.1.1 ity of [place] 3.104.2.7 [place] .3.987857 Medica l .8 Branch 2019-04-11 2019-04-11 Refill Ronald, 1.2.840.3 [id number] Univers 00:00:00 00:00:00 [place] 26995.1.1 ity of 3.104.2.7 [place] .3.753224 Medica l .8 Branch 2019-04-09 2019-04-09 Refill East, 1.2.840.4 [id number] Univers 00:00:00 00:00:00 [place] 00676.1.1 ity of 3.104.2.7 [place] .3.422164 Medica l .8 Branch 2019-04-03 2019-04-03 Telephone Team, [facility] 1.2.840.4 [id number] Univers 00:00:00 00:00:00 Health 63084.1.1 [place].2.[place] .3.815178 Medica l .8 Branch 2019-03-27 2019-03-27 Telephone Self, 1.2.840.4 [id number] Univers 00:00:00 00:00:00 Gadiel 90680.1.1 ity of 3.104.2.7 [place] .3.310340 Medica l .8 Branch 2019-01-17 2019-01-17 Office Ronald, 1.2.840.9 [id number] Univers 07:37:21 10:32:51 Visit Santiago 73366.1.1 ity of 3.104.2.7 [place] .3.041197 Medica l .8 Branch 2019-01-04 2019-01-12 Office Eveline Hansen 1.2.840.8 [id number] Univers 11:19:32 11:08:05 Visit Mariela 90852.1.1 ity of 3.104.2.7 [place] .3.594276 Medica l .8 Branch 2019-01-10 2019-01-10 Telephone Stanislav, 1.2.840.2 [id number] [id number] Univers 00:00:00 00:00:00 Eladio Inman 34334.1.1 ity of 3.104.2.7 [place] .3.039363 Medica l .8 Branch 2018-12-18 2018-12-18 Office Geraldine, 1.2.840.1 [id number] Univers 08:48:45 09:13:43 Visit Leyda 02129.1.1 it y of 3.104.2.7 [place] .3.587873 Medica l .8 [place] 2018-10-30 2018-10-30 Telephone East, 1.2.840.9 [id number] Univers 00:00:00 00:00:00 [place] 89440.1.1 ity of 3.104.2.7 [place] .3.004857 Medica l .8 [place] 2018-10-23 2018-10-23 Orders Doctor 1.2.840.9 [id number] Univers 00:00:00 00:00:00 Only Unassigned, 05225.1.1 ity of [place] 3.104.2.7 [place] .3.325397 Medica l .8 [place] 2018-10-23 2018-10-23 Nurse Selvin, 1.2.840.8 [id number] Univers 00:00:00 00:00:00 Triage Stefanie 69832.1.1 ity of 3.104.2.7 [place] .3.547884 Medica l .8 [place] 2018-10-23 2018-10-23 Telephone Self, 1.2.840.1 [id number] Univers 00:00:00 00:00:00 Gadiel 14133.1.1 ity of 3.104.2.7 [place] .3.614548 Medica l .8 [place] 2018-10-20 2018-10-20 Telephone Self, 1.2.840.5 [id number] Univers 00:00:00 00:00:00 Gadiel 73794.1.1 ity of 3.104.2.7 [place] .3.783602 Medica l .8 [place] Results Test Description Test Time Test Comments Results Result Comments Source COMP. METABOLIC PANEL (08054) 2022-05-06 22:42:55 Test Item Value Reference Range Interpretation Comme nts NA (test code = 8096230812) 137 mmol/L 135-145 K (test code = 1983076097) 3.2 mmol/L 3.5-5.0 L CL (test code = 7453872395) 100 mmol/L 98-108 CO2 TOTAL (test code = 0171325549) 23 mmol/L 23-31 AGAP (test code = 2165374440) 2-16 BUN (test code = 7497937178) 41 mg/dL 7-23 H GLUCOSE (test code = 3684452096) 98 mg/dL 70-110 CREATININE (test code = 1.55 mg/dL 0.50-1.04 H 1078067562) TOTAL BILI (test code = 0.8 mg/dL 0.1-1.6 6058785756) CALCIUM (test code = 9240494706) 8.3 mg/dL 8.6-10.6 L T PROTEIN (test code = 1737571506) 6.9 g/dL 6.3-8.2 ALBUMIN (test code = 4322029105) 3.9 g/dL 3.5-5.0 ALK PHOS (test code = 9063281689) 89 U/L 34-122 ALTv (test code = 1742-6) 101 U/L 5-35 H AST(SGOT) (test code = 7487261810) 203 U/L 13-40 H eGFR (test code = 0263092490) mL/min/1.73m2 KYLE (test code = KYLE) Association [...] tests). Lab Interpretation (test code = Abnormal 38162-1) [facility] WITH [id number] 22:33:52 Test Item Value Reference Range Interpretation [...] RDW-SD (test code = 46.3 fL 39.0-49.9 23597-3) RDW-CV (test code = 13.5 % 12.0-15.5 788-0) PLT (test code = See_Comment L [Automated 777-3) message] The sy stem which generated this result transmitted reference range : 166 - 358 10*3/ ?L. The reference r abbey was not used to interpret this result as normal/abnormal . MPV (test code = 9.5 fL 9.5-12.9 56743-0) NRBC/100 WBC (test See_Comment [Automat ed code = 5445947591) message] The system which generated this result transmitted reference range : 0.0 - 10.0 /100 WBCs. The refer ence range was not u sed to interpret th is result as normal/abnormal . NRBC x10^3 (test code See_Comment [Auto mated = 7586296758) message] The s ystem which generated this result transmitted reference range : 10*3/?L. The reference range was not used to interpret this result as normal/abnormal . GRAN MAT (NEUT) % 58.3 % (test code = 770-8) IMM GRAN % (test code 0.80 % = 8644571495) LYMPH % (test code = 28.1 % 736-9) MONO % (test code = 12.0 % 5905-5) EOS % (test code = 0.5 % 713-8) BASO % (test code = 0.3 % 706-2) GRAN MAT x10^3(ANC) 2.29 10*3/uL 1.88-7.09 (test code = 2651383400) IMM GRAN x10^3 (test 0.03 10*3/uL 0.00-0.06 code = 9721015290) LYMPH x10^3 (test code 1.10 10*3/uL 1.32-3.29 L = 731-0) MONO x10^3 (test code 0.47 10*3/uL 0.33-0.92 = 742-7) EOS x10^3 (test code = 0.03-0.39 L 711-2) BASO x10^3 (test code 0.01-0.07 = 704-7) Lab Interpretation Abnormal (test code = 27300-7) [facility] METABOLIC PANEL (NA, K, CL, CO2, GLUCOSE, BUN, CREATININE, CA)2022-04-22 21:43:42 Test Item Value Reference Range Interpretation Comments NA (test code = 142 mmol/L 135-145 7847534730) K (test code = 3.5 mmol/L 3.5-5.0 7358589026) CL (test code = 106 mmol/L 98-108 5364699294) CO2 TOTAL (test code = 26 mmol/L 23-31 4863244772) AGAP (test code = 2-16 3222400510) BUN (test code = 29 mg/dL 7-23 H 1245867462) GLUCOSE (test code = 84 mg/dL 70-110 4149391098) CREATININE (test code = 1.16 mg/dL 0.50-1.04 H 1424050630) CALCIUM (test code = 8.2 mg/dL 8.6-10.6 L 8830599679) eGFR (test code = mL/min/1.73m2 3002629970) KYLE (test code = KYLE) Association of [...] tests). Lab Interpretation Abnormal (test code = 46408-8) [facility] WITH [id number] 21:33:01 Test Item Value Reference Range Interpretation [...] (test code = 50.7 fL 39.0-49.9 H 94024-9) RDW-CV (test code = 14.6 % 12.0-15.5 788-0) PLT (test code = See_Comment L [Automated 777-3) message] The sy stem which generated this result transmitted reference range : 166 - 358 10*3/ ?L. The reference r abbey was not used to interpret this result as normal/abnormal . MPV (test code = 8.8 fL 9.5-12.9 L 73760-6) NRBC/100 WBC (test See_Comment [Automat ed code = 0873617658) message] The system which generated this result transmitted reference range : 0.0 - 10.0 /100 WBCs. The refer ence range was not u sed to interpret th is result as normal/abnormal . NRBC x10^3 (test code See_Comment [Auto mated = 8329155716) message] The s ystem which generated this result transmitted reference range : 10*3/?L. The reference range was not used to interpret this result as normal/abnormal . GRAN MAT (NEUT) % 70.9 % (test code = 770-8) IMM GRAN % (test code 0.50 % = 9752570705) LYMPH % (test code = 17.4 % 736-9) MONO % (test code = 9.0 % 5905-5) EOS % (test code = 1.7 % 713-8) BASO % (test code = 0.5 % 706-2) GRAN MAT x10^3(ANC) 4.60 10*3/uL 1.88-7.09 (test code = 3591164397) IMM GRAN x10^3 (test 0.03 10*3/uL 0.00-0.06 code = 7090196236) LYMPH x10^3 (test code 1.13 10*3/uL 1.32-3.29 L = 731-0) MONO x10^3 (test code 0.58 10*3/uL 0.33-0.92 = 742-7) EOS x10^3 (test code = 0.11 10*3/uL 0.03-0.39 711-2) BASO x10^3 (test code 0.03 10*3/uL 0.01-0.07 = 704-7) Lab Interpretation Abnormal (test code = 62144-6) [facility] CULTURE [id number] 06:01:07 Test Item Value Reference Range Interpretation Comments Blood Culture-Aerobic No organisms No growth Previo us (test code = 65597-6) isolated prelim inary verified result was Culture [...] Culture-Anaerobic isolated preliminar y (test code = 47684-7) verifi ed result was Culture In Progress [...] CDT Lab Interpretation Normal (test code = 40038-0) [facility] CULTURE [id number] 06:01:07 Test Item Value Reference Range Interpretation Comments Blood Culture-Aerobic No organisms No growth Previo us (test code = 32915-0) isolated prelim inary verified result was Culture [...] Culture-Anaerobic isolated preliminar y (test code = 39767-6) verifi ed result was Culture In Progress [...] CDT Lab Interpretation Normal (test code = 70537-3) [facility] [id number] 06:01:07 Test Item Value Reference Range Interpretation Comments Blood Culture-Aerobic No organisms No growth Previo us (test code = 09596-5) isolated prelim inary verified result was Culture [...] Culture-Anaerobic isolated preliminar y (test code = 78274-2) verifi ed result was Culture In Progress [...] CDT Lab Interpretation Normal (test code = 15276-9) [facility] [id number] 10:49:10 Test Item Value Reference Range Interpretation Comments NT-proBNP (test code 2660 pg/mL See_Comment H [Autom ated = 0860751550) message] The system which generated this result transmitted reference range : <=125. The reference range was not used to interpret this result as normal/abnormal . KYLE (test code = KYLE) Biotin has been reported to cause a negative bias, interpret results relative to patient's use of biotin. Lab Interpretation Abnormal (test code = 60602-4) [facility] [id number] 10:49:10 Test Item Value Reference Range Interpretation Comments NT-proBNP (test code 2660 pg/mL See_Comment H [Autom ated = 3274797111) message] The system which generated this result transmitted reference range : <=125. The reference range was not used to interpret this result as normal/abnormal . KYLE (test code = KYLE) Biotin has been reported to cause a negative bias, interpret results relative to patient's use of biotin. Lab Interpretation Abnormal (test code = 44627-9) [facility] (NA, K, CL, CO2, GLUCOSE, BUN, CREATININE, CA)2022-02-15 10:44:07 Test Item Value Reference Range Interpretation Comments NA (test code = 134 mmol/L 135-145 L 1736949427) K (test code = 3.2 mmol/L 3.5-5 L 6502629907) CL (test code = 98 mmol/L 98-108 0060609984) CO2 TOTAL (test code = 27 mmol/L 23-31 8748742785) AGAP (test code = 2-16 2023290695) BUN (test code = 19 mg/dL 7-23 0903919044) GLUCOSE (test code = 102 mg/dL 70-110 4509741585) CREATININE (test code = 0.95 mg/dL 0.5-1.04 3195202127) CALCIUM (test code = 8.5 mg/dL 8.6-10.6 L 2908577355) eGFR (test code = mL/min/1.73m2 4584344160) KYLE (test code = KYLE) Association of [...] tests). Lab Interpretation Abnormal (test code = 45469-2) [facility] Test Item Value Reference Range Interpretation Comments MAGNESIUM (test code = 4614067502) 1.8 mg/dL 1.7-2.4 Lab Interpretation (test code = Normal 57999-5) [facility] Test Item Value Reference Range Interpretation Comments MAGNESIUM (test code = 1345167158) 1.8 mg/dL 1.7-2.4 Lab Interpretation (test code = Normal 35962-4) [facility] (NA, K, CL, CO2, GLUCOSE, BUN, CREATININE, CA)2022-02-15 10:44:07 Test Item Value Reference Range Interpretation Comments NA (test code = 134 mmol/L 135-145 L 2400141403) K (test code = 3.2 mmol/L 3.5-5.0 L 9614524014) CL (test code = 98 mmol/L 98-108 0098602792) CO2 TOTAL (test code = 27 mmol/L 23-31 9183815533) AGAP (test code = 2-16 1277982642) BUN (test code = 19 mg/dL 7-23 4876397133) GLUCOSE (test code = 102 mg/dL 70-110 1792482321) CREATININE (test code = 0.95 mg/dL 0.50-1.04 3001950757) CALCIUM (test code = 8.5 mg/dL 8.6-10.6 L 3534386982) eGFR (test code = mL/min/1.73m2 2833132250) KYLE (test code = KYLE) Association of [...] tests). Lab Interpretation Abnormal (test code = 05275-7) [facility] WITH [id number] 10:12:06 Test Item Value Reference Range Interpretation [...] RDW-SD (test code = 47.8 fL 39-49.9 80761-4) RDW-CV (test code = 15.2 % 12-15.5 788-0) PLT (test code = See_Comment L [Automated 777-3) message] The sy stem which generated this result transmitted reference range : 166 - 358 10*3/ ?L. The reference r abbey was not used to interpret this result as normal/abnormal . MPV (test code = 8.9 fL 9.5-12.9 L 02213-4) NRBC/100 WBC (test See_Comment [Automat ed code = 1379003689) message] The system which generated this result transmitted reference range : 0.0 - 10.0 /100 WBCs. The refer ence range was not u sed to interpret th is result as normal/abnormal . NRBC x10^3 (test code See_Comment [Auto mated = 0479409961) message] The s ystem which generated this result transmitted reference range : 10*3/?L. The reference range was not used to interpret this result as normal/abnormal . GRAN MAT (NEUT) % 65.9 % (test code = 770-8) IMM GRAN % (test code 0.30 % = 3803415376) LYMPH % (test code = 21.0 % 736-9) MONO % (test code = 10.1 % 5905-5) EOS % (test code = 2.4 % 713-8) BASO % (test code = 0.3 % 706-2) GRAN MAT x10^3(ANC) 2.49 10*3/uL 1.88-7.09 (test code = 8633306992) IMM GRAN x10^3 (test 0-0.06 code = 9935214078) LYMPH x10^3 (test code 0.79 10*3/uL 1.32-3.29 L = 731-0) MONO x10^3 (test code 0.38 10*3/uL 0.33-0.92 = 742-7) EOS x10^3 (test code = 0.09 10*3/uL 0.03-0.39 711-2) BASO x10^3 (test code 0.01-0.07 = 704-7) Lab Interpretation Abnormal (test code = 86690-9) [facility] WITH [id number] 10:12:06 Test Item Value Reference Range Interpretation [...] RDW-SD (test code = 47.8 fL 39.0-49.9 85278-8) RDW-CV (test code = 15.2 % 12.0-15.5 788-0) PLT (test code = See_Comment L [Automated 777-3) message] The sy stem which generated this result transmitted reference range : 166 - 358 10*3/ ?L. The reference r abbey was not used to interpret this result as normal/abnormal . MPV (test code = 8.9 fL 9.5-12.9 L 55008-0) NRBC/100 WBC (test See_Comment [Automat ed code = 3637234317) message] The system which generated this result transmitted reference range : 0.0 - 10.0 /100 WBCs. The refer ence range was not u sed to interpret th is result as normal/abnormal . NRBC x10^3 (test code See_Comment [Auto mated = 8995151651) message] The s ystem which generated this result transmitted reference range : 10*3/?L. The reference range was not used to interpret this result as normal/abnormal . GRAN MAT (NEUT) % 65.9 % (test code = 770-8) IMM GRAN % (test code 0.30 % = 4402832302) LYMPH % (test code = 21.0 % 736-9) MONO % (test code = 10.1 % 5905-5) EOS % (test code = 2.4 % 713-8) BASO % (test code = 0.3 % 706-2) GRAN MAT x10^3(ANC) 2.49 10*3/uL 1.88-7.09 (test code = 2376239780) IMM GRAN x10^3 (test 0.00-0.06 code = 0118309957) LYMPH x10^3 (test code 0.79 10*3/uL 1.32-3.29 L = 731-0) MONO x10^3 (test code 0.38 10*3/uL 0.33-0.92 = 742-7) EOS x10^3 (test code = 0.09 10*3/uL 0.03-0.39 711-2) BASO x10^3 (test code 0.01-0.07 = 704-7) Lab Interpretation Abnormal (test code = 43793-7) [facility] WITH [id number] 11:18:28 Test Item Value Reference Range Interpretation [...] RDW-SD (test code = 49.5 fL 39-49.9 37263-8) RDW-CV (test code = 15.5 % 12-15.5 788-0) PLT (test code = See_Comment L [Automated 777-3) message] The sy stem which generated this result transmitted reference range : 166 - 358 10*3/ ?L. The reference r abbey was not used to interpret this result as normal/abnormal . MPV (test code = 11.4 fL 9.5-12.9 58271-1) IPF % (test code = 8.7 % 1.3-7.7 H Platelet count 4215932274) measured by fluorescence method. NRBC/100 WBC (test See_Comment [Automat ed code = 8354339929) message] The system which generated this result transmitted reference range : 0.0 - 10.0 /100 WBCs. The refer ence range was not u sed to interpret th is result as normal/abnormal . NRBC x10^3 (test code See_Comment [Auto mated = 0143529956) message] The s ystem which generated this result transmitted reference range : 10*3/?L. The reference range was not used to interpret this result as normal/abnormal . GRAN MAT (NEUT) % 62.0 % (test code = 770-8) IMM GRAN % (test code 0.80 % = 5839092458) LYMPH % (test code = 22.2 % 736-9) MONO % (test code = 9.6 % 5905-5) EOS % (test code = 5.1 % 713-8) BASO % (test code = 0.3 % 706-2) GRAN MAT x10^3(ANC) 2.21 10*3/uL 1.88-7.09 (test code = 8639746255) IMM GRAN x10^3 (test 0.03 10*3/uL 0-0.06 code = 0388751732) LYMPH x10^3 (test code 0.79 10*3/uL 1.32-3.29 L = 731-0) MONO x10^3 (test code 0.34 10*3/uL 0.33-0.92 = 742-7) EOS x10^3 (test code = 0.18 10*3/uL 0.03-0.39 711-2) BASO x10^3 (test code 0.01-0.07 = 704-7) POLYCHROMASIA (test 2+ See_Comment [Automa arpit code = 36275-1) message] The system which generated this result [...] . Lab Interpretation Abnormal (test code = 51705-8) [facility] METABOLIC PANEL (NA, K, CL, CO2, GLUCOSE, BUN, CREATININE, CA)2022-02-13 10:39:07 Test Item Value Reference Range Interpretation Comments NA (test code = 136 mmol/L 135-145 8361723237) K (test code = 4.1 mmol/L 3.5-5 4476400544) CL (test code = 102 mmol/L 98-108 8161738002) CO2 TOTAL (test code = 27 mmol/L 23-31 2350054875) AGAP (test code = 2-16 5830602303) BUN (test code = 22 mg/dL 7-23 5694213223) GLUCOSE (test code = 94 mg/dL 70-110 4150201156) CREATININE (test code = 0.94 mg/dL 0.5-1.04 5418890522) CALCIUM (test code = 8.1 mg/dL 8.6-10.6 L 6692958978) eGFR (test code = mL/min/1.73m2 7476658659) KYLE (test code = KYLE) Association of [...] tests). Lab Interpretation Abnormal (test code = 64595-4) [facility] 01:50:10 Test Item Value Reference Range Interpretation Comments Height (test code = in 1777130869) Weight (test code = lbs 5251673271) Systolic BP (test code mmHg = 1507295914) Diastolic BP (test code mmHg = 7467414694) Heart Rate (test code = bpm 7779135585) BSA (test code = 1.85 m2 4489058501) IVS (test code = 1.22 cm 2522817749) Interventricular Septum 1.22 cm Diastolic Thickness by 2D (test code = 1015137) LVIDD (test code = 5.00 cm 3460864084) Left Ventricular End 117.9 mL Diastolic Volume by Teichholz Method (test code = 5831474) LVPWD (test code = 1.22 cm 4175258353) PW (test code = 1.22 cm 0.6-1.8 2685536029) EF(Teich) (test code = 74.60 % 2266661934) LVIDS (test code = 2.80 cm 3593666301) Left Ventricular End 29.9 mL Systolic Volume by Teichholz Method (test code = 2240148) FS (test code = 44 % 3597556018) EF - 2D (test code = 74.60 % 59634717) LVOT diameter (test 2.16 cm code = 2789330996) LVOT area (test code = 3.70 cm2 4029710139) Ao root diam (test code 3.40 cm = 8001040812) Aortic root (test code 3.4 cm = 4978275243) Ao root annulus (test 3.4 cm code = 0715018636) LA size (test code = 3.4 cm 4066686775) TR Peak Spencer (test code 330.0 cm/s = 5969148322) Triscuspid Valve mmHg Regurgitation Peak Gradient (test code = 1281029858) PV REGURGITATION PEAK mmHg GRADIENT (test code = 4405283051) PI dec slope (test code 137.20 cm/s2 = 7127927465) LAV(MOD-sp4) (test code 102.90 mL = 1942450177) MV Peak E Spencer (test 84.1 cm/s code = 4033952603) MV Peak A Spencer (test 40.1 cm/s code = 2569230628) E/A ratio (test code = ratio 2183844846) MV valve area p 1/2 3.70 cm2 method (test code = 1317551203) MV dec slope (test code 413.00 cm/s2 = 1493830156) MV P1/2t max spencer (test 83.70 cm/s code = 4931051712) MV Prop V (test code = 41.80 cm/s 8057728510) Tapse (test code = 1.83 cm 3070297519) LVOT stroke volume 96.90 cm3 (test code = 9665079140) LVOT peak spencer (test 125.5 cm/s code = 8379590795) LVOT mn grad (test code mmHg = 6978900472) AV LVOT peak gradient mmHg (test code = 2283614274) LVOT peak VTI (test 26.4 cm code = 6261825860) LV V1 mean (test code = 78.10 cm/s 7510598051) Aortic valve mean 103.7 cm/s velocity (test code = 2185978453) Ao peak spencer (test code 165.6 cm/s = 8293805647) Ao VTI (test code = 37.2 cm 1297058404) AV area by cont VTI 2.6 cm2 (test code = 1058407785) AV area peak spencer (test 2.8 cm2 code = 6459180466) Ao max PG (test code = 11.00 mm[Hg] 8092886017) AV peak gradient (test mmHg code = 9802675965) AV valve area (test 2.60 cm2 code = 7412915101) AV mean gradient (test mmHg code = 5419151079) LA Volume Index (BP) 55.2 mL/m2 (test code = 4864694519) LA volume (BP) (test 102.1 mL code = 8176447266) LAV(MOD-sp2) (test code 86.10 mL = 9676098357) A2C EF (test code = 61.20 % 7887149729) EF(sp2-el) (test code = 61.60 % 6067361819) SV(MOD-sp2) (test code 47.10 mL = 4954567338) LV Diastolic Volume 70.7 mL (BP) (test code = 3436232617) A4C EF (test code = 53.00 % 8126957471) EF(MOD-bp) (test code = 56.70 % 3865091959) EF(sp4-el) (test code = 53.90 % 9549703561) LV Systolic Volume (BP) 30.6 mL (test code = 8295445208) SV(MOD-bp) (test code = 40.10 mL 4693129723) SV(MOD-sp4) (test code 32.40 mL = 2956991363) SV(sp4-el) (test code = 33.10 mL 7255993560) EF (test code = 8944307084) Left Ventricular Stroke 40.1 mL Volume by 2-D Biplane-MOD (test code = 2223703) LV Diastolic Volume 38.2 mL/m2 Index (BP) (test code = 0811084035) LV Systolic Volume 16.5 mL/m2 Index (BP) (test code = 6245928703) Radiology Study observation (narrative) (test code = 12024-7) KYLE (test code = KYLE) ?Left?Ventricle: Left [...] 1.00The left ventricular wall motion is normal. [facility] HospitalTR[facility]IN [id number] 05:45:01 Test Item Value Reference Interpretation Comments Range TROPONIN I (test See_Comment [Automated code = 0572483813) message] The system which generated this result [...] biotin. Lab Interpretation Normal (test code = 82005-0) [facility] Hospital[facility]MINAL [id number]-[id number] 05:41:40 Test Item Value Reference Range Interpretation Comments NT-proBNP (test code 4250 pg/mL See_Comment H [Autom ated = 5215377332) message] The system which generated this result transmitted reference range : <=125. The reference range was not used to interpret this result as normal/abnormal . KYLE (test code = KYLE) Biotin has been reported to cause a negative bias, interpret results relative to patient's use of biotin. Lab Interpretation Abnormal (test code = 18446-2) [facility]ACT[facility] THRMPLAS [id number] 05:35:21 Test Item Value Reference Range Interpretation [...] seconds. Lab Interpretation Normal (test code = 33586-5) [facility] [id number] 05:35:21 Test Item Value Reference Range Interpretation [...] seconds. Lab Interpretation Normal (test code = 73646-1) [facility] HospitalPROTHROMBIN TIME / [id number] 05:33:21 Test Item Value Reference Range Interpretation [...] tions. Lab Interpretation (test Normal code = 79714-3) [facility] HospitalCOMP. METABOLIC PANEL (18020)2022-02-11 05:33:21 Test Item Value Reference Range Interpretation Comments NA (test code = 137 mmol/L 135-145 6008684907) K (test code = 4.3 mmol/L 3.5-5 4409984563) CL (test code = 103 mmol/L 98-108 9018161995) CO2 TOTAL (test code = 25 mmol/L 23-31 1473556770) AGAP (test code = 2-16 6746564885) BUN (test code = 19 mg/dL 7-23 4388767882) GLUCOSE (test code = 120 mg/dL 70-110 H 9833099852) CREATININE (test code = 1.15 mg/dL 0.5-1.04 H 6923771621) TOTAL BILI (test code = 0.9 mg/dL 0.1-1.8 4149160833) CALCIUM (test code = 8.9 mg/dL 8.6-10.6 6379611782) T PROTEIN (test code = 6.6 g/dL 6.3-8.2 5020366772) ALBUMIN (test code = 4.0 g/dL 3.5-5 4713528239) ALK PHOS (test code = 73 U/L 34-122 2152198717) ALTv (test code = 18 U/L 5-35 1742-6) AST(SGOT) (test code = 31 U/L 13-40 4727334404) eGFR (test code = mL/min/1.73m2 7920292455) KYLE (test code = KYLE) Association of [...] tests). Lab Interpretation Abnormal (test code = 26694-7) [facility]. METABOLIC PANEL (59111)2022-02-11 05:33:21 Test Item Value Reference Range Interpretation Comments NA (test code = 137 mmol/L 135-145 0856121811) K (test code = 4.3 mmol/L 3.5-5.0 5037503582) CL (test code = 103 mmol/L 98-108 9818961728) CO2 TOTAL (test code = 25 mmol/L 23-31 6601986107) AGAP (test code = 2-16 8826236675) BUN (test code = 19 mg/dL 7-23 9615900690) GLUCOSE (test code = 120 mg/dL 70-110 H 8807295288) CREATININE (test code = 1.15 mg/dL 0.50-1.04 H 7648973104) TOTAL BILI (test code = 0.9 mg/dL 0.1-1.6 4642775994) CALCIUM (test code = 8.9 mg/dL 8.6-10.6 8237427998) T PROTEIN (test code = 6.6 g/dL 6.3-8.2 2258023414) ALBUMIN (test code = 4.0 g/dL 3.5-5.0 9685258619) ALK PHOS (test code = 73 U/L 34-122 0397617307) ALTv (test code = 18 U/L 5-35 1742-6) AST(SGOT) (test code = 31 U/L 13-40 6949216012) eGFR (test code = mL/min/1.73m2 9468848964) KYLE (test code = KYLE) Association of [...] tests). Lab Interpretation Abnormal (test code = 92598-3) [facility] HospitalPROTHROMBIN TIME / [id number] 05:33:21 Test Item Value Reference Range Interpretation Comments PROTIME PATIENT (test See_Comment [Auto mated message] code = 5964-2) The system [employer] generated this result transmitted ref erence range: 12.0 - 1 4.7 Seconds. The re ference range was not u sed to interpret this result as normal/abnor mal. INR (test code = 6301-6) Nor mal INR <1.1; Warfarin Therap eutic range 2.0 to 3. 0 or 2.5 to 3.5, dep ending upon the indica tions. Lab Interpretation (test Normal code = 24855-1) [facility] WITH [id number] 05:14:37 Test Item Value Reference Range Interpretation [...] RDW-SD (test code = 47.9 fL 39-49.9 34935-8) RDW-CV (test code = 14.9 % 12-15.5 788-0) PLT (test code = See_Comment L [Automated 777-3) message] The sy stem which generated this result transmitted reference range : 166 - 358 10*3/ ?L. The reference r abbey was not used to interpret this result as normal/abnormal . MPV (test code = 9.1 fL 9.5-12.9 L 68918-2) NRBC/100 WBC (test See_Comment [Automat ed code = 7421782736) message] The system which generated this result transmitted reference range : 0.0 - 10.0 /100 WBCs. The refer ence range was not u sed to interpret th is result as normal/abnormal . NRBC x10^3 (test code See_Comment [Auto mated = 6126733669) message] The s ystem which generated this result transmitted reference range : 10*3/?L. The reference range was not used to interpret this result as normal/abnormal . GRAN MAT (NEUT) % 78.5 % (test code = 770-8) IMM GRAN % (test code 0.20 % = 6023398852) LYMPH % (test code = 11.6 % 736-9) MONO % (test code = 8.4 % 5905-5) EOS % (test code = 1.1 % 713-8) BASO % (test code = 0.2 % 706-2) GRAN MAT x10^3(ANC) 3.45 10*3/uL 1.88-7.09 (test code = 4528129839) IMM GRAN x10^3 (test 0-0.06 code = 9643683426) LYMPH x10^3 (test code 0.51 10*3/uL 1.32-3.29 L = 731-0) MONO x10^3 (test code 0.37 10*3/uL 0.33-0.92 = 742-7) EOS x10^3 (test code = 0.05 10*3/uL 0.03-0.39 711-2) BASO x10^3 (test code 0.01-0.07 = 704-7) Lab Interpretation Abnormal (test code = 14447-5) [facility] Coronavirus 2019 Bolxhqp4392-71-03 18:08:00 Test Item Value Reference Range Interpretation [...] det ection of nucleic acids f rom cqoPKIX-RdS-8 v irus and diagnosis of SA RS-CoV-2 virusinfection. It is an Emergency Use Authorization ( EUA) testauthorized by the U.S. FDA. BASIC METABOLIC [id number] 09:37:00 Test Item Value Reference Range Interpretation [...] = 9.0 mg/dL 8.0-10.5 N CA) PROTHROMBIN [id number] 09:32:00 Test Item Value Reference Range Interpretation [...] (to prevent recurrent infar ct). 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 [facility] - XR CHEST 1 [id number] 00:00:00 [facility] 1955 Sex: F FAX: Carmenza Kelly DO [phone] [place]: St: ADM FAX: Mike Scales MD [phone] FAX: Bahman Chopra [phone] Name: LIO WATTS [facility] : 1955 Age/S: 66/F [address] [place] [address] Unit #: [id number] Loc: KWABENA Bernstein [address] Phys: Bahman Chopra [employer]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 There is no consolidation. Technically limited asses sment of the lateral left base. Nodular opacities [...] Technologist: Jass Moreno RT(R) Trnscrd Date/Time/By: 06/17/2021 (9723) : By: Susanna Orig Print D/T: S: 06/17/2021 (2680) PAGE 1 Signed ReportCOVID 19 Asymptomatic IH [id number] 12:29:00 Test Item Value Reference Range Interpretation [...] high or waivedcomplexit y tests. BASIC METABOLIC [id number] 11:37:00 Test Item Value Reference Range Interpretation [...] code = 9.0 mg/dL 8.0-10.5 N CA) [id number] 11:37:00 Test Item Value Reference Range Interpretation Comments PREALBUMIN (test code = PREALB) 24.3 mg/dL 16.0-40.0 N PROTHROMBIN [id number] 11:03:00 Test Item Value Reference Range Interpretation [...] (to prevent recurrent infar ct). CBC W/AUTO [id number] 10:59:00 Test Item Value Reference Range Interpretation [...] 0.0-0.1 N NRBC#) - XR CHEST 2 [id number] 00:00:00 [facility] : 1955 Sex: F FAX: RobinCarmenza Singh Kristen VARELA [phone] [place]: St: PRE FAX: Mike Scales MD [phone] Name: LIO WATTS [facility] : 1955 Age/S: 66/F [address] [place] [address] Unit #: [id number] Loc: [place], [place] [address]Hxec: Mike Lund MD Acct: [id number] Dis Date: Status: [place] [facility] [place] #: [phone] Exam Date: 06/16/2021 1120 FAX #: [phone] Reason: PREOP EXAMS: CPT CODE: [id number] XR CHEST 2 V 36263 PROCEDURE INFORMATION: Exam: XR Chest Exam date [...] Mike Lund MD Technologist: Danielle Nix, RT(R) [facility] Date/Time/By: 06/16/2021 (2079) : By: [email or web address] Orig Print D/T: S: 06/16/2021 (9322) PAGE 1 Signed ReportGastrointestinal jmwgl0516-38-92 04:35:05 Test Item Value Reference Interpretation Comments [...] Rotavirus PCR (test Not Detected code = 9156779) Salmonella PCR (test Not Detected code = [...] PCR Not Detected (test code = 7124) [facility] qgswywx1096-27-53 19:30:47 Test Item Value Reference Range Interpretation Comments Case number (test [id number] code = 6662401) Surgical pathology See link below for PDF report (test code = Lab Report 2255) Result status (test This is Supplemental code = 0924782) Report for [id number] [facility]ukDUARGLBQWP0635-59-53 16:31:00 Test Item Value Reference Range Interpretation Comments POC Activated Clotting Time (test code 153 s = POC Activated Clotting Time) [facility]IczslmkNTFGJWHYMN2418-00-79 16:31:00 Test Item Value Reference Range Interpretation Comments POC Activated Clotting Time (test code 153 s = POC Activated Clotting Time) [facility] CenterLsmqhdqQOCOXIZIZS7688-98-78 16:31:00 Test Item Value Reference Range Interpretation Comments POC Activated Clotting Time (test code 153 s = POC Activated Clotting Time) [place] [id number] 16:31:00 Test Item Value Reference Range Interpretation Comments POC Activated Clotting Time (test code 153 s = POC Activated Clotting Time) [place] 056091-04-09 16:31:00 Test Item Value Reference Range Interpretation Comments POC Activated Clotting Time (test code 153 s = POC Activated Clotting Time) [facility] CenterCvraungEKSKGWDSGJ3887-07-43 16:31:00 Test Item Value Reference Range Interpretation Comments POC Activated Clotting Time (test code 153 s = POC Activated Clotting Time) [facility] CenterKibqfufVJTTRHKPGV2310-69-41 16:31:00 Test Item Value Reference Range Interpretation Comments POC Activated Clotting Time (test code 153 s = POC Activated Clotting Time) [facility] CenterHhpkunpSEQXHVTYKP1603-97-31 14:37:00 Test Item Value Reference Range Interpretation Comments POC Activated Clotting Time (test code 454 s = POC Activated Clotting Time) [facility] CenterWaxwdkmEVGSIPZWBQ7869-54-08 14:37:00 Test Item Value Reference Range Interpretation Comments POC Activated Clotting Time (test code 454 s = POC Activated Clotting Time) [facility] CenterHicxezyZFNTXDPIQW9953-59-96 14:37:00 Test Item Value Reference Range Interpretation Comments POC Activated Clotting Time (test code 454 s = POC Activated Clotting Time) [facility] CenterHofwyfnNSHTYMKJAN5000-90-88 14:37:00 Test Item Value Reference Range Interpretation Comments POC Activated Clotting Time (test code 454 s = POC Activated Clotting Time) [facility] CenterQvjftxeLMBWNIBJAE0967-79-42 14:37:00 Test Item Value Reference Range Interpretation Comments POC Activated Clotting Time (test code 454 s = POC Activated Clotting Time) [place] 056091-04-09 14:37:00 Test Item Value Reference Range Interpretation Comments POC Activated Clotting Time (test code 454 s = POC Activated Clotting Time) [facility] CenterQoytksfEBDIAFGQXS0522-41-11 14:37:00 Test Item Value Reference Range Interpretation Comments POC Activated Clotting Time (test code 454 s = POC Activated Clotting Time) [facility] CenterGaaucnpQBASTJYUGY5229-29-65 14:13:00 Test Item Value Reference Range Interpretation Comments POC Activated Clotting Time (test code 354 s = POC Activated Clotting Time) [facility] CenterJicqnsvBLCZQLXVDU4433-00-16 14:13:00 Test Item Value Reference Range Interpretation Comments POC Activated Clotting Time (test code 354 s = POC Activated Clotting Time) [facility] CenterGvwbgorMSEBCXGRYY0508-41-82 14:13:00 Test Item Value Reference Range Interpretation Comments POC Activated Clotting Time (test code 354 s = POC Activated Clotting Time) [facility] CenterEwcxfokDHECWJHEEZ1214-38-96 14:13:00 Test Item Value Reference Range Interpretation Comments POC Activated Clotting Time (test code 354 s = POC Activated Clotting Time) [facility] CenterTgvfiwsJTWQIWHHQV1326-02-81 14:13:00 Test Item Value Reference Range Interpretation Comments POC Activated Clotting Time (test code 354 s = POC Activated Clotting Time) [facility] CenterPdioiiqKLERRIQUIT1687-03-28 14:13:00 Test Item Value Reference Range Interpretation Comments POC Activated Clotting Time (test code 354 s = POC Activated Clotting Time) [facility] CenterEwldpwdTOXNSUICLP4789-56-43 14:13:00 Test Item Value Reference Range Interpretation Comments POC Activated Clotting Time (test code 354 s = POC Activated Clotting Time) [facility] PDIQFAP6196-20-10 10:37:00Negative (08/29/20 5:37 AM) [facility]CHE[facility] IPXWJ7547-57-17 10:37:39016Hfrzhanj HermannCHEM PANEL 2020-08-29 10:37:0028[facility] HermannCHEM DLRDM3872-78-43 10:37:001.01[facility] HermannCHEM ZKVWG9124-65-71 10:37:00380Kcdbqedu HermannCHEM RWTZJ0028-36-23 10:37:003.8[facility] HermannCHEM KRSNZ4493-47-32 10:37:14160Cfenddab HermannCHEM SUDLI8986-12-76 10:37:0028[facility] HermannCHEM MPCJL5459-88-87 10:37:009.8 [facility]annCHEM ZNMVD4940-49-86 10:37:0011.8[facility] HermannCHEM PANEL 2020-08-29 10:37:0059[facility] HermannCHEM AFNWN3208-98-20 10:37:002.9[facility] AzzoyziPWJYVCQTTB8222-99-96 10:37:006.8[facility] QxdkzqdYUAFZSHLAK7075-01-13 10:37:004.47[facility] FvkktvlCFBTFMEOMQ1234-43-83 10:37:0010.6[facility] CMRAMPMDXO5637-45-66 10:37:0034.0[facility] HumfcheIITMVFUOEO4482-80-02 10:37:00 76.1[facility] RbxrgvmFYYYCZFESI1539-49-47 10:37:00 Test Item Value Reference Range Interpretation Comments MCH (test code = MCH) 23.8 pg 27.0-31.0 [facility] VnlnfqkXRTILNHLMP5357-48-30 10:37:0031.3[facility] HermannHEMATOLOGY 2020-08-29 10:37:0018.2[facility] YctbeepDCNLFZIXKS3679-19-53 10:37:73912Ipziasix SrjreixUTJVSRLXQT6658-28-64 10:37:007.5[facility] FbgsfoaTIBHKWLEDW8848-25-77 10:37:00 Test Item Value Reference Range Interpretation Comments PT (test code = PT) 12.8 s 12.0-14.7 [facility] JnctibaQSANYMEVPJ0641-42-36 10:37:00 Test Item Value Reference Range Interpretation Comments INR (test code = INR) 0.97 1 0.85-1.17 [facility] QxxjtfhJAEWEGHHJM1785-05-99 10:37:00 Test Item Value Reference Range Interpretation Comments PTT (test code = PTT) 25.0 s 22.9-35.8 [facility] MckmozsOGXMAJGYPW0492-23-94 10:37:0070.5[facility] HermannHEMATOLOGY 2020-08-29 10:37:0018.8[facility] QamdlimOGWXFSRECG8082-71-46 10:37:009.5[facility] OipxfnbIWQMVCCLPP2540-58-44 10:37:000.9[facility] ZukvumlQWAKIDCNQU9991-70-16 10:37:000.3[facility] EvydheuKCYIQKLGOM0459-93-07 10:37:004.8[facility] JYTAJHWUXH1960-05-05 10:37:001.3[facility] CwjwowlFARBAQQCFW8206-41-07 10:37:000.6 [facility] FcqqintTLUBPQRSDN7282-53-54 10:37:000.1[facility]annHEMATOLOGY 2020-08-29 10:37:001+ *ABN*(08/29/20 5:37 AM)[facility] VapfbxqXHJAYUNDNV4377-36-31 10:37:00Not Detected (08/29/20 5:37 AM)[facility] RESULTS 2020-08-29 10:37:00Negative (08/29/20 5:37 AM)[facility] HermannCHEM JCEHX0083-54-47 10:37:86968Nhlpyybz HermannCHEM WKHDA8110-14-97 10:37:0028[facility] HermannCHEM PFMZH8717-48-29 10:37:001.01[facility] HermannCHEM HVKVX1847-03-56 10:37:71783 [facility]annCHEM CQNEY7364-48-75 10:37:003.8[facility] HermannCHEM PANEL 2020-08-29 10:37:96382Bqvgpolu HermannCHEM XCUVH2889-23-33 10:37:0028[facility] HermannCHEM UPBPF4350-91-30 10:37:009.8[facility]annCHEM QKNSV0146-80-05 10:37:0011.8[facility]annCHEM DOWZG6443-79-49 10:37:0059[facility]annCHEM KAMDU1424-56-68 10:37:002.9[facility] XzyhkkdFUVJPYFQWZ5335-71-58 10:37:006.8 [facility] XiusgrgQEYWUACXPM9209-77-86 10:37:004.47[facility]annHEMATOLOGY 2020-08-29 10:37:0010.6[facility] OhzyyngFKSPTKQSQD4973-58-89 10:37:0034.0[facility] DeaqpaeLZEKGONAWT3749-34-08 10:37:0076.1[facility] FlpcjhnWSBXLHJNRS1790-30-25 10:37:00 Test Item Value Reference Range Interpretation Comments MCH (test code = MCH) 23.8 pg 27.0-31.0 [facility] CigfnxmUVKMMTQWKD5214-61-33 10:37:0031.3[facility]annHEMATOLOGY 2020-08-29 10:37:0018.2[facility] IredyggPFQFJCOXUL9328-29-62 10:37:44755Emufkkdr RicsfcuOVXMWSLTSR7929-91-87 10:37:007.5[facility] NlchbztCMOCAIFTLD7532-84-67 10:37:00 Test Item Value Reference Range Interpretation Comments PT (test code = PT) 12.8 s 12.0-14.7 [facility] CpsxporGRNMFFZTUE8979-80-18 10:37:00 Test Item Value Reference Range Interpretation Comments INR (test code = INR) 0.97 1 0.85-1.17 [facility] IpkhpehIACJTLBRKE2770-76-74 10:37:00 Test Item Value Reference Range Interpretation Comments PTT (test code = PTT) 25.0 s 22.9-35.8 [facility] IwldlxePTDMFXNLIW1910-57-51 10:37:0070.5[facility]annHEMATOLOGY 2020-08-29 10:37:0018.8[facility] ZrxabmxHSUVUGGAUQ9948-93-62 10:37:009.5[facility] EzwutunWANBPEFXAH1785-79-95 10:37:000.9[facility] YmjjvdlXTDHKCNPJK9103-40-40 10:37:000.3[facility] OenjiafWJNBMJKLYW2449-98-64 10:37:004.8[facility] VWGUWGKBLS9728-61-33 10:37:001.3[facility] KlqcmtnBQUPCUVESJ2326-96-05 10:37:000.6 [facility] BnauzfeBHADZFPCHI2379-90-68 10:37:000.1[facility]annHEMATOLOGY 2020-08-29 10:37:001+ *ABN*(08/29/20 5:37 AM)[facility] FugskijQDANYXUAUA4236-80-50 10:37:00Not Detected (08/29/20 5:37 AM)[facility]ann[facility]OD BANK RESULTS 2020-08-29 10:37:00Negative (08/29/20 5:37 AM)[facility]annCHEM BAGWP5450-02-02 10:37:85364Cfolvdle HermannCHEM WIQYE7161-77-49 10:37:0028[facility]annCHE[facility] EPSCX7024-07-00 10:37:001.01[facility]annCHE[facility] YRARL6935-48-65 10:37:00296 [facility] XRXIH1573-96-50 10:37:003.8[facility]annCHEM PANEL 2020-08-29 10:37:60415Avydqtkb HermannCHEM WFMZY4824-72-30 10:37:0028[facility]annCHE[facility] KMGOW1865-82-67 10:37:009.8[facility]annCHE[facility] XGRUP3129-35-07 10:37:0011.8[facility]annCHE[facility] XDTUP9581-33-49 10:37:0059[facility]annCHEM OFXLH9576-77-25 10:37:002.9[facility] TwrcpcaFAVASXMSCF4396-15-79 10:37:006.8 [facility] HvebsxzQCIWCRWUHZ8118-24-61 10:37:004.47[facility]annHEMATOLOGY 2020-08-29 10:37:0010.6[facility] CtdkjgeYFZOZCLXCY8063-94-90 10:37:0034.0[facility] AllmawoXUCQXHQFKZ4263-16-73 10:37:0076.1[facility] AbusnqmFDCCTPTNIL7998-65-68 10:37:00 Test Item Value Reference Range Interpretation Comments MCH (test code = MCH) 23.8 pg 27.0-31.0 [facility] HvcdcgnFWIDEUEBYQ6634-93-09 10:37:0031.3[facility]annHEMATOLOGY 2020-08-29 10:37:0018.2[facility] XdnqiugUWXJZCLRVZ8246-80-14 10:37:33942Hznpbwjf XsdwwjqEVITZWFFDP7591-82-75 10:37:007.5[facility] WpfjxvmMADTXDGUIN3668-02-71 10:37:00 Test Item Value Reference Range Interpretation Comments PT (test code = PT) 12.8 s 12.0-14.7 [facility] GmlaimrFJKIUXXIIQ0279-90-23 10:37:00 Test Item Value Reference Range Interpretation Comments INR (test code = INR) 0.97 1 0.85-1.17 [facility] KomwevbBUMGKOBMFI4049-44-43 10:37:00 Test Item Value Reference Range Interpretation Comments PTT (test code = PTT) 25.0 s 22.9-35.8 [facility] SmljumpIHNSDGQQUI3001-64-58 10:37:0070.5[facility]annHEMATOLOGY 2020-08-29 10:37:0018.8[facility] JgrljjkDMHDUQAPEU9063-35-97 10:37:009.5[facility] KwsasrsMCZRDUIBRH8215-10-55 10:37:000.9[facility] WlaqpkkWMVKDDPXPL1980-01-08 10:37:000.3[facility] HappusfHEAFAOUHAV4329-95-90 10:37:004.8[facility] [place] FQNHWTBDHW7967-08-67 10:37:001.3[facility] GesozbgECSGBZWSRI8146-75-88 10:37:000.6 [facility] IcpwwmcSNQPPTATBC0758-63-88 10:37:000.1[facility]annHEMATOLOGY 2020-08-29 10:37:001+ *ABN*(08/29/20 5:37 AM)[facility] RpxmhkhFSDSWKQLFR3122-08-17 10:37:00Not Detected (08/29/20 5:37 AM)[facility]annBL[facility]OD BANK RESULTS 2020-08-29 10:37:00Negative (08/29/20 5:37 AM)[facility]annCHEM XONYC8964-53-58 10:37:50602Oazjqmhx HermannCHEM CGOEF2685-01-97 10:37:0028[facility]annCHE[facility] SGWNE1463-77-67 10:37:001.01[facility]annCHEM DHYRX2406-64-71 10:37:96786 [facility]annCHE[facility] JOLEX7714-63-79 10:37:003.8[facility]annCHEM PANEL 2020-08-29 10:37:74473Fpcclfoc HermannCHEM MRFHE2499-58-95 10:37:0028[facility]annCHEM EIOSE0639-08-95 10:37:009.8[facility]annCHEM ZPTTH9917-80-37 10:37:0011.8[facility]annCHEM SOLBA4260-51-33 10:37:0059[facility]annCHEM EQEIV8381-76-51 10:37:002.9[facility] ZjvjvtuIUOGMMTJFI6159-07-89 10:37:006.8 [facility] LyyqtrvBCMWKGYXFV8097-93-76 10:37:004.47[facility]annHEMATOLOGY 2020-08-29 10:37:0010.6[facility] ZwkxbupOEHCSXDEWO6816-68-08 10:37:0034.0[facility] QvdfhcaDWQJMFUYBZ3636-52-71 10:37:0076.1[facility] LoawozqUSJVXCPTKU1280-41-63 10:37:00 Test Item Value Reference Range Interpretation Comments MCH (test code = MCH) 23.8 pg 27.0-31.0 [facility] KabnrauOJQMWQHRKF3902-22-60 10:37:0031.3[facility]annHEMATOLOGY 2020-08-29 10:37:0018.2[facility] DeodebwCXIKZCCPOL1152-41-38 10:37:66602Ewzwkosr EuhdowwFPDETUBCMJ1987-90-20 10:37:007.5[facility] KiekvbxTJZOUTKVWM6404-42-10 10:37:00 Test Item Value Reference Range Interpretation Comments PT (test code = PT) 12.8 s 12.0-14.7 [facility] MlrbzwjBCXCMGRQZG7854-99-13 10:37:00 Test Item Value Reference Range Interpretation Comments INR (test code = INR) 0.97 1 0.85-1.17 [facility] HdphpnrAXYJXJQLCZ9716-77-30 10:37:00 Test Item Value Reference Range Interpretation Comments PTT (test code = PTT) 25.0 s 22.9-35.8 [facility] LqxyphnXEVQQCITKM7342-63-13 10:37:0070.5[facility] HermannHEMATOLOGY 2020-08-29 10:37:0018.8[facility] JyubuaiAMOTTCXFCY0761-56-84 10:37:009.5[facility] XejyiguPGUMLGTQBF3978-81-16 10:37:000.9[facility] DndzgxvKTIOWABMXS2513-76-77 10:37:000.3[facility] CekcrvsJXYZERAGMC4279-29-06 10:37:004.8[facility] [place] VOCYFLVYVP5278-45-06 10:37:001.3[facility] OmgjrqkEPNFYLBOTX0108-01-61 10:37:000.6 [facility] UzuwwjqSPDGJEOXLG7583-34-55 10:37:000.1[facility]annHEMATOLOGY 2020-08-29 10:37:001+ *ABN*(08/29/20 5:37 AM)[facility] NaijtrxTJZJQCJQBU1818-58-84 10:37:00Not Detected (08/29/20 5:37 AM)[facility]annBLOOD BANK RESULTS 2020-08-29 10:37:00Negative (08/29/20 5:37 AM)[facility]annCHEM RPSRO8215-49-42 10:37:66586Ypoxkejz HermannCHEM QQDLU7421-51-52 10:37:0028[facility]annCHEM YQVSO7266-01-37 10:37:001.01[facility]annCHEM FMAPT0529-60-61 10:37:14088 [facility]annCHE[facility] QSNCS8172-29-43 10:37:003.8[facility] HermannCHEM PANEL 2020-08-29 10:37:78896Sbaueegb HermannCHEM MDDEL7898-96-58 10:37:0028[facility]annCHEM MLHHI1914-50-51 10:37:009.8[facility] HermannCHEM DJDZN0195-40-05 10:37:0011.8[facility]annCHEM XNTAO7759-42-09 10:37:0059[facility]annCHEM WQTTZ6614-75-03 10:37:002.9[facility] ZqnoimkKIUYRTBAUP5482-58-86 10:37:006.8 [facility] OolunflFCDCNVITTU8121-46-87 10:37:004.47[facility] HermannHEMATOLOGY 2020-08-29 10:37:0010.6[facility] UfpfotlRVDCNWVMOZ6888-69-28 10:37:0034.0[facility] MksgdisOUKGMSHXQZ0564-31-14 10:37:0076.1[facility] JdpvgeuHSWJMRULBX1072-00-18 10:37:00 Test Item Value Reference Range Interpretation Comments MCH (test code = MCH) 23.8 pg 27.0-31.0 [facility] ZdrsbmvTIROSSDCLM0846-64-34 10:37:0031.3[facility] HermannHEMATOLOGY 2020-08-29 10:37:0018.2[facility] HfniqzpCWNJOYJJHD7659-51-06 10:37:38505Ywvtjfde ShxglfkNQUPUVYUKA3238-82-04 10:37:007.5[facility] RsouxwhZEQDINZINC0902-70-47 10:37:00 Test Item Value Reference Range Interpretation Comments PT (test code = PT) 12.8 s 12.0-14.7 [facility] FsxczrjDJPOYHABRJ0601-11-52 10:37:00 Test Item Value Reference Range Interpretation Comments INR (test code = INR) 0.97 1 0.85-1.17 [facility] NglkewbDXBOAPGOBB7298-61-70 10:37:00 Test Item Value Reference Range Interpretation Comments PTT (test code = PTT) 25.0 s 22.9-35.8 [facility] CunsuaaKSONKWLMCU4038-30-38 10:37:0070.5[facility]annHEMATOLOGY 2020-08-29 10:37:0018.8[facility] CtogoguTTEVEOJTAG9826-73-90 10:37:009.5[facility] OgxqkduCISTRPAKWK2963-52-89 10:37:000.9[facility] IqjdohrNBGWKDEMVA3717-76-00 10:37:000.3[facility] AhkdrflLZXVCIYNWQ9812-50-58 10:37:004.8[facility] [place] UXEUXPFFYJ3870-13-90 10:37:001.3[facility] WgdimxuJRPAVWRSMI1178-33-06 10:37:000.6 [facility] IwlbwidYEZNPMCIHG3854-40-15 10:37:000.1[facility]annHEMATOLOGY 2020-08-29 10:37:001+ *ABN*(08/29/20 5:37 AM)[facility] AxgpttmWWXOINUAPR6534-18-68 10:37:00Not Detected (08/29/20 5:37 AM)[facility] HermannBLOOD BANK RESULTS 2020-08-29 10:37:00Negative (08/29/20 5:37 AM)[facility]annCHEM AKBQM5134-67-61 10:37:45899Vcqeimqy HermannCHEM RJHEF4958-07-59 10:37:0028[facility]annCHEM WBQFC4594-28-11 10:37:001.01[facility]annCHEM ZXSFW0672-65-46 10:37:18069 [facility]CHE[facility] DQIXX8784-05-35 10:37:003.8[facility] HermannCHEM PANEL 2020-08-29 10:37:80095Oqvbdssr HermannCHEM ENQSV0954-19-39 10:37:0028[facility]annCHEM XNLAM0687-93-85 10:37:009.8[facility]annCHEM VTQBD3913-40-90 10:37:0011.8[facility]annCHEM QOFPO2739-27-66 10:37:0059[facility] HermannCHEM GOSON5921-37-85 10:37:002.9[facility] JuuonzaIGJHWNTRJO9994-00-38 10:37:006.8 [facility] XmlhqqqUNXEGDKWRI5661-51-26 10:37:004.47[facility]annHEMATOLOGY 2020-08-29 10:37:0010.6[facility] OwtmobmOJHQAAIIHS4940-16-43 10:37:0034.0[facility] OhmzrlzKLFPOYSXLR3649-17-97 10:37:0076.1[facility] KnncrjtQVFSOPNCXZ3620-44-77 10:37:00 Test Item Value Reference Range Interpretation Comments MCH (test code = MCH) 23.8 pg 27.0-31.0 [facility] ZluytfcSUCLWMUKOD6633-49-31 10:37:0031.3[facility]annHEMATOLOGY 2020-08-29 10:37:0018.2[facility] CrrsujaDKHNPXQVPQ5945-65-93 10:37:14076Uoegxwzn NgxllodMKACTNSAVP5506-19-13 10:37:007.5[facility] ByjhlqjQIIZSBXPPV5913-92-65 10:37:00 Test Item Value Reference Range Interpretation Comments PT (test code = PT) 12.8 s 12.0-14.7 [facility] RtwvjemXOOCHCRBIL4020-78-59 10:37:00 Test Item Value Reference Range Interpretation Comments INR (test code = INR) 0.97 1 0.85-1.17 [facility] FtzcbzpAOCEAQETYM4474-16-59 10:37:00 Test Item Value Reference Range Interpretation Comments PTT (test code = PTT) 25.0 s 22.9-35.8 [facility] TsrrvctZVJAAFNMPW1406-58-67 10:37:0070.5[facility]annHEMATOLOGY 2020-08-29 10:37:0018.8[facility] WwdadluGCJLJXMLYT4909-91-59 10:37:009.5[facility] BrjmhblDKMTEISZZK8516-21-10 10:37:000.9[facility] UewqafdHZOMGIAXIV3412-04-15 10:37:000.3[facility] CjiqafrHXMJQTWXXZ9767-74-16 10:37:004.8[facility] [place] JPZGMDZUNA5196-29-60 10:37:001.3[facility] XumjqjoDISHZYQRZB3398-08-06 10:37:000.6 [facility] TckvbovIUYZXGTUFY8971-74-76 10:37:000.1[facility]annHEMATOLOGY 2020-08-29 10:37:001+ *ABN*(08/29/20 5:37 AM)[facility] XrqdsufCIJOGQETGL1807-81-37 10:37:00Not Detected (08/29/20 5:37 AM)[facility] HermannBLOOD BANK RESULTS 2020-08-29 10:37:00Negative (08/29/20 5:37 AM)[facility]annCHEM MBUSK2766-24-69 10:37:75012Udkhwaqg HermannCHEM DKWAU9265-15-86 10:37:0028[facility]annCHEM SAPJV1825-05-05 10:37:001.01[facility]annCHEM BAAAD2953-65-70 10:37:73787 [facility]annCHEM OHFPP2214-43-55 10:37:003.8[facility] HermannCHEM PANEL 2020-08-29 10:37:19112Nznejpsm HermannCHEM OOZID8229-23-77 10:37:0028[facility]annCHEM UQBLB2443-19-77 10:37:009.8[facility]annCHEM ISCSV2650-86-15 10:37:0011.8[facility] HermannCHEM LBAMO4958-16-51 10:37:0059[facility]annCHEM SFKXM0515-90-40 10:37:002.9[facility] UzzzsigVXEJYYQPUH9994-94-66 10:37:006.8 [facility] SklhdtrGQANSEIDMF3911-71-12 10:37:004.47[facility]annHEMATOLOGY 2020-08-29 10:37:0010.6[facility] YoozctrZOGQQFCIGF5519-79-65 10:37:0034.0[facility] VfhicydHKHZGKWBZF5931-39-58 10:37:0076.1[facility] ZgwbcutWHOJJAUUVJ5223-95-00 10:37:00 Test Item Value Reference Range Interpretation Comments MCH (test code = MCH) 23.8 pg 27.0-31.0 [facility] EzlbgksJOJUZLPHQA3889-09-52 10:37:0031.3[facility]annHEMATOLOGY 2020-08-29 10:37:0018.2[facility] MoajllwTNJNBLNESB8706-92-12 10:37:97323Hvrrtedd GwvdiahTIBNIXKDTC4880-37-27 10:37:007.5[facility] DitkjygKCDPUNQJLE4623-31-25 10:37:00 Test Item Value Reference Range Interpretation Comments PT (test code = PT) 12.8 s 12.0-14.7 [facility] KkdkijuISYBVOBEXM5528-24-83 10:37:00 Test Item Value Reference Range Interpretation Comments INR (test code = INR) 0.97 1 0.85-1.17 [facility] XujemcyYDIWZXWIZP0275-57-85 10:37:00 Test Item Value Reference Range Interpretation Comments PTT (test code = PTT) 25.0 s 22.9-35.8 [facility] MpemxnjBQWRIHQJEJ2616-77-10 10:37:0070.5[facility]annHEMATOLOGY 2020-08-29 10:37:0018.8[facility] UjdwzfkWRNIRJLKFI2357-65-58 10:37:009.5[facility] UftrcjhTUREVVKSKT6997-00-49 10:37:000.9[facility] OszjfvhXMQHBKFXQB9836-69-21 10:37:000.3[facility] RieyifxVULYCWRYMG7534-27-33 10:37:004.8[facility] [place] UIFGYQBEQD8534-07-24 10:37:001.3[facility] XwdwxdmBMSOHQLCPQ3089-23-61 10:37:000.6 [facility] JqoeuwuSEIUHWFUEH4266-60-75 10:37:000.1[facility]annHEMATOLOGY 2020-08-29 10:37:001+ *ABN*(08/29/20 5:37 AM)[facility] LeshovfPLQOGJCUXO2803-31-64 10:37:00Not Detected (08/29/20 5:37 AM)[facility] GC, TV,PCR, IN EKAVV4618-36-92 15:38:00 Test Item Value Reference Range Interpretation Comments FT (test code = CHTR) Not detected (qualifier Not Detected N value) FT (test code = Not detected (qualifier Not Detected N NGONO) value) FT (test code = TRVG) Not detected (qualifier Not Detected N value) [facility] BQAHLMZCBIU5885-00-62 10:57:00 Test Item Value Reference Range Interpretation Comments Color (test code = UCOLR) Dk. Yellow Clarity (test code = UCLAR) Hazy Glucose (test code = UGLUC) NEGATIVE NEGATIVE N Bilirubin (test code = UBILI) NEGATIVE NEGATIVE N Ketones (test code = UKET) NEGATIVE NEGATIVE N Specific Sunset (test code = 1.025 1.005-1.030 A USPGR) [...] = None Seen None Seen N URCRYS) [facility]"
--- NOTE | 2022-10-02 13:53 | RAD REPORT ---
EXAM DESCRIPTION: RAD - Chest Single View - 10/02/2022 1:43 pm CLINICAL HISTORY: Chest pain;Cough COMPARISON: Chest Pa And Lat (2 Views) dated 09/24/2022; Chest Single View dated 09/22/2022; Chest Singl e View dated 09/22/2022; Chest Single View dated 09/19/2022; Thorax W/ Con dated 09/20/2022 FINDINGS: Lines: None. Lungs: No evidence of edema or pneumonia. Pleural: No significant pleural effusions or pneumothorax. Cardiac: Cardiomegaly. Mediastinum: Within normal limits. Bones: No acute fractures. Bilateral shoulder arthroplasty . Other: None IMPRESSION: No acute cardiopulmonary disease.
--- NOTE | 2022-10-02 14:18 | ER ---
Nurse's Notes [facility] Name: Marjan Kolb Age: 67 yrs Sex: Female : 1955 Arrival Date: 10/02/2022 Time: 12:30 Bed IW1 Private MD: Diagnosis: Headache Presentation: 10/02 12:39 Chief complaint: Patient states: frontal headache that began today around 0430. Pt aa5 reports nausea, denies vomiting. EMS reports BP 200/100 upon scene arrival and pt reported taking hydralazine and metoprolol prior to EMS arrival. Pt reports hx of migraines. Coronavirus screen: headache. Ebola Screen: Patient denies travel to an Ebola-affected area in the 21 days before illness onset. Initial Sepsis Screen: Does the patient meet any 2 criteria? No. Patient's initial sepsis screen is negative. Does the patient have a suspected source of infection? No. Patient's initial sepsis screen is negative. Risk Assessment: Do you want to hurt yourself or someone else? Patient reports no desire to harm self or others. Onset of symptoms was October 02, 2022. 12:39 Method Of Arrival: EMS: [facility] aa5 12:39 Acuity: BLAYNE 3 aa5 Historical: - Allergies: 12:41 Azithromycin; aa5 12:41 Bactrim; aa5 12:41 butorphanol; aa5 12:41 Fentanyl; aa5 12:41 Reglan; aa5 12:41 Sulfa (Sulfonamide Antibiotics); aa5 12:41 TRIMETHOPRIM; aa5 - PMHx: 12:41 angina pectoris; Anxiety; Atrial fibrillation; Bipolar disorder; esophageal varicies; aa5 Hepatitis; HIV positive; Hypertensive disorder; Migraine; panic attack; - Immunization history:: Adult Immunizations unknown. - Social history:: Smoking status: Patient denies any tobacco usage or history of. Vital Signs: 12:39 BP 169 / 81; Pulse 61; Resp 16 S; Temp 98(TE); Pulse Ox 97% on R/A; Weight 80.74 kg aa5 (R); Height 5 ft. 4 in. (R); 12:39 Body Mass Index 30.55 (80.74 kg, 162.56 cm) aa5 ED Course: 12:33 Patient arrived in ED. ts1 12:39 Arm band placed on. aa5 12:41 Triage completed. aa5 12:55 Sameer Merrill MD is Attending Physician. bs3 13:45 XRAY Chest (1 view) In Process Unspecified. EDMS Administered Medications: 14:36 Drug: Ketorolac IM 30 mg Route: IM; Site: right deltoid; hb Outcome: 14:18 Discharge ordered by . bs3 14:36 Patient left the ED. hb Signatures: Dispatcher [employer] EDMS Lindsay Schulz RN RN aa5 Tata Rivera RN RN Sameer Merrill MD MD bs3 Abena Rasheed, PAS PAS ts1
--- NOTE | 2022-10-02 14:18 | EDPHYS ---
Physician Documentation [facility] Name: Marjan Kolb Age: 67 yrs Sex: Female : 1955 Arrival Date: 10/02/2022 Time: 12:30 Bed IW1 Private MD: ED Physician Sameer Merrill HPI: 10/02 13:06 This 67 yrs old Female presents to ER via EMS with complaints of Headache, bs3 Dizziness. 13:06 67-year-old female history of anxiety, angina, A-fib, bipolar disorder, HIV history of bs3 chronic headaches and chronic pain presents with 2 complaints she notes chest palpitations and a headache, she notes having these symptoms multiple times. 13:09 Per the patient she notes she was sleeping at about 3 AM she woke up with a headache bs3 similar to her prior headaches she did not take anything for it but then developed palpitations she denies shortness of breath the headache was gradual in onset not the worst headache she has ever had she did not have loss of consciousness with it was not so severe that she felt like she needed to come to the hospital. Patient notes that she did not have her ride to the hospital and she was waiting because her is out of town. Historical: - Allergies: 12:41 Azithromycin; aa5 12:41 Bactrim; aa5 12:41 butorphanol; aa5 12:41 Fentanyl; aa5 12:41 Reglan; aa5 12:41 Sulfa (Sulfonamide Antibiotics); aa5 12:41 TRIMETHOPRIM; aa5 - PMHx: 12:41 angina pectoris; Anxiety; Atrial fibrillation; Bipolar disorder; esophageal varicies; aa5 Hepatitis; HIV positive; Hypertensive disorder; Migraine; panic attack; - Immunization history:: Adult Immunizations unknown. - Social history:: Smoking status: Patient denies any tobacco usage or history of. ROS: 13:09 Constitutional: Negative for fever, chills bs3 13:09 All other systems are negative. Exam: 13:09 Constitutional: This is a well developed, well nourished patient who is awake, alert, bs3 and in no acute distress. Head/Face: Normocephalic, atraumatic. Eyes: Pupils equal round and reactive to light, extra-ocular motions intact. Lids and lashes normal. ENT: mmm, no posterior phyarngeal erythema Neck: Trachea midline, no thyromegaly, no neck stiffness Chest/axilla: Normal chest wall appearance and motion. Nontender with no deformity. No lesions are appreciated. Cardiovascular: Regular rate and rhythm with a normal S1 and S2. symmetric pulses in upper extremities Respiratory: Lungs have equal breath sounds bilaterally, clear to auscultation, no respiratory distress Abdomen/GI: Soft, non-tender, no rebound or guarding Skin: Warm, dry with normal turgor. Normal color with no rashes, no lesions, and no evidence of cellulitis. MS/ Extremity: Pulses equal, no cyanosis. Neurovascular intact. Full, normal range of motion. Neuro: Awake and alert, GCS 15, oriented to person, place, time, and situation. Cranial nerves II-XII grossly intact. Motor strength 5/5 in all extremities. Sensory grossly intact. 14:17 EKG is atrial fibrillation at [address] elevations or depressions QTc is 478 as bs3 interpreted by myself Vital Signs: 12:39 BP 169 / 81; Pulse 61; Resp 16 S; Temp 98(TE); Pulse Ox 97% on R/A; Weight 80.74 kg aa5 (R); Height 5 ft. 4 in. (R); 12:39 Body Mass Index 30.55 (80.74 kg, 162.56 cm) aa5 MDM: 12:54 Patient medically screened. bs3 13:16 Data reviewed: vital signs, nurses notes. ED course: Patient is very well-appearing bs3 with normal oxygen normal heart rate normal temperature she has over 10 visits since May 23 I do not think she has a subarachnoid hemorrhage meningitis or encephalitis I do not think she has a cerebral venous sinus thrombosis or other life-threatening process she also is unlikely to have ACS given the symptom description we will treat pain will reassess. 14:25 ED course: there may be a component of chronic pain as pt stating that toradol doesn't bs3 work and is requesting morphine or dilaudid. 10/02 13:05 Order name: XRAY Chest (1 view); Complete Time: 14:02 bs3 10/02 13:03 Order name: EKG - Nurse/Tech; Complete Time: 14:12 bs3 Administered Medications: 14:36 Drug: Ketorolac IM 30 mg Route: IM; Site: right deltoid; hb Disposition Summary: 10/02/22 14:18 Discharge Ordered Location: Home bs3 Problem: new bs3 Symptoms: have improved bs3 Condition: Stable bs3 Diagnosis - Headache bs3 Followup: bs3 - With: Private Physician - When: 5 - 6 days - Reason: Re-evaluation by your physician Discharge Instructions: - Discharge Summary Sheet bs3 - General Headache Without Cause bs3 - Palpitations, Xkhh-ri-Obgv bs3 Forms: - Medication Reconciliation Form bs3 - Thank You Letter bs3 - Antibiotic Education bs3 - Prescription Opioid Use bs3 Signatures: Dispatcher [employer] EDLindsay Whelan RN RN aa5 Tata Rivera RN RN hb Sameer Merrill MD MD bs3
[2022-10-02] MEDS ORDERED: KETOROLAC 30 MG/ML INJ ONE (14:34)
[2022-10-02 14:47] VITALS: BP 169/81; TEMP 98; O2SAT 97
== END 2022-10-02 14:36 | disposition home or self-care (01) ==
LOC: ER 12:30
DX: R51.9 Headache, unspecified (principal); R00.2 Palpitations; I48.91 Unspecified atrial fibrillation; Z21 Asymptomatic human immunodeficiency virus [HIV] infection status; I10 Essential (primary) hypertension; Z88.1 Allergy status to other antibiotic agents; Z88.2 Allergy status to sulfonamides; Z88.3 Allergy status to other anti-infective agents; Z88.8 Allergy status to other drugs, medicaments and biological substances
CPT/HCPCS: 71045; 96372; 99284

== ENCOUNTER 2022-10-05 19:39 | Emergency (ER) | payer OTHER ==
--- OUTSIDE RECORDS SUMMARY | 2022-10-05 20:00 | XMS REPORT | Continuity of Care Document ---
:1955 Author Organization [facility] t Address [address] [place] [address] Care Team Providers Name Role Phone Urmila [...] Attending Clinician Unavailable Robbi Bal Attending Clinician [facility] Attending Clinician Unavailable Isaias Whiteside RN Attending Clinician Unavailable TOMY MARIE Attending Clinician Unavailable Reilly Means MD Attending Clinician Ofe Shields MD Attending Clinician Tomy Marie MD Attending Clinician Doctor Unassigned, [place] Attending Clinician Unavailable Bill COLES Attending Clinician Unavailable Bill Rose Attending Clinician CHARITY MCALLISTER Attending Clinician Unavailable Charity Mcallister MD Attending Clinician GADIEL KOEHLER Attending Clinician Unavailable Mike Lund Attending Clinician Unavailable NIKOLAI REEVES Attending Clinician Unavailable Eliseo Arce MD Attending Clinician Carol Ann IZQUIERDO, Sarai Lieberman Attending Clinician [phone] Ashly Pelletier MA Attending Clinician Unavailable Dagoberto Bass MD Attending Clinician [place] Evangelista Attending Clinician Lab, [facility] Pob I Attending Clinician Unavailable Monica Rodas MA Attending Clinician Unavailable Agustina Ortiz MA Attending Clinician Unavailable Rody Maguire RN Attending Clinician Unavailable Remigio MD, Saraswathi V. Attending Clinician HEMATPOUR, BEVERLY Attending Clinician Unavailable Caridad SALGUERO, Gloria Attending Clinician Xiao RAMIREZ, Michael Corbin Attending Clinician Unavailable Team, [facility] Attending Clinician UnavailDO PORSHA Newell Attending Clinician Unavailable Gadiel Koehler MD Attending Clinician Tyrone JENKINS, Eveline Sierra Attending Clinician Eladio Colorado RN Attending Clinician Unavailable Geraldine SALGUERO, Leyda Attending Clinician [phone] Selvin RAMIREZ, Stefanie Attending Clinician Unavailable HOEM MATTHEWS Admitting Clinician Unavailable ANETTE OLEA Admitting Clinician Unavailable TOMY MARIE Admitting Clinician Unavailable Frank JENKINS, Tomy Admitting Clinician Bill COLES Admitting Clinician Unavailable Lacey UrmilaBibianaFrancisco Kritsen Admitting Clinician Unavailable Mike Lund Admitting Clinician Unavailable ELISEO ARCE Admitting Clinician Unavailable DO PORSHA STREETER Admitting Clinician Unavailable Payers Payer Name Policy Type Policy Number Effective Date Expiration Date S gabino [facility] COMMUNITY PLAN [id number] 2012 STAR PLUS OON 00:00:00 [facility] [id number] 2019 DUAL COMPLETE HMO 00:00:00 [facility] [id number] 2019 PLUS 00:00:00 [facility] [id number] 2019 [facility] [place] STAR 00:00:00 [employer] MEDICARE ADV [id number] 2019 2019 00:00:00 00:00:00 Problems Condition Condition Condition Status Onset Resolution Last Treating Co mments Source Name Details Category Date Date Treatment Clinician Date Dyspnea, Dyspnea, Disease Active Unive rs unspecifie unspecifie 02-11 it y of d type d type 00:00: [place] [address] Medical Branch Gastropare Gastropare Disease Active Overview : Methodi sis sis 4-[address] 00:00: [facility] note l might be different from the original. Added automatic ally from request for surgery [id number] Dysphagia Dysphagia Disease Active Overview: Methodi 4-[address] 00:00: [facility] 00 note l might be different from the original. Added automatic ally from request for surgery [id number] CCL / EPS CCL / EPS Diagnosis Active 2020-10-15 Get PVI PVI 3-30 17:07:00 l ABLATION ABLATION 00:00: Patel n W/ CARTO / W/ CARTO / 00 GA / T GA / T Active 08/19/2020 [facility] Food Food Disease Active [...] Active 2014-05 Univers 0-03 ity of 00:00: [place] [facility] Hypovolemi Hypovolemi Disease Active 2014-05 [...] hoxazole 1-25 Clear 00:00: Garcia 00 [facility] trimetho DA Active SV [facility] prim 1-25 Clear 00:00: Garcia [facility] codeine DA Active SV N/V [facility] 1-25 Clear 00:00: Garcia [facility] Metoclop Propensi Active [place] ramide ty to 12-12 Health adverse 00:00: reaction 00 s BUTORPHA DRUG Active Unknown-Cmnt Un matt NOL INGREDI 11-25 ity of 00:00: [place] [facility] Butorpha Drug Active Unknown - [...] 2017- Univers INGREDI 2-08 ity of 00:00: [place] [facility] TRIMETHO DRUG Active Hives Univers [...] Date Stop Date Source Natural father Diabetes [facility] Natural father Other - see comments [facility] Natural [facility] father [facility] Natural mother [facility] Social History Social Habit Start Date Stop Date Quantity Comments Source Gender identity 2020-10-06 Identifies as Method ist 15:23:56 female gender Hospital (finding) History SDOH [facility] Alcohol Frequency Hospita l History SDOH [facility] Alcohol Std Drinks Hospit al History SDOH [facility] Alcohol Binge Hospital Sexual orientation [facility] History of Social 2022-08-26 2022-08-[address] function 00:00:00 00:00:00 Hospital Exposure to 2022-04-30 2022-05-10 Yes University of SARS-CoV-2 (event) 00:00:00 10:25:00 [facility] Tobacco use and 2022-02-11 2022-02-11 Former smokeless Uni versity of exposure 00:00:00 00:00:00 tobacco user [facility] Tobacco Comment 2022-02-11 2022-02-11 Smokes approx 1-2 Un iversity of 00:00:00 00:00:00 cigarettes per [facility] day when she Branch smokes Alcohol intake 2020-12-08 2020-12-08 Current drinker [facility] 00:00:00 00:00:00 of [facility] (finding) Cigarettes smoked 2020-09-05 2020-09-[address] current (pack per 00:00:00 00:00:00 Hospita l day) - Reported Cigarette 2020-09-05 2020-09-05 [facility] pack-years 00:00:00 00:00:00 Hospital Alcohol Comment 2016-09-23 2016-09-23 rare [facility] 00:00:00 00:00:00 Hospital History of tobacco 2011-09-29 User of smokeless University of use 00:00:00 tobacco [facility] Sex Ass[birth year] At [birth year] [facility] 00:00:00 00:00:00 Smoking Status Start Date Stop Date Source Ex-smoker 2022-02-11 00:00:00 2022-02-11 00:00:00 [facility] [place] [facility] Medications Ordered Filled Start Stop Current Ordering Indication Dosage Frequency Signature Comments Components Source Medication Medication Date Date Medication? Clinician (SIG) Name Name GEOFFREY Yes [id number] Take one Univers tablet 5-08 po daily ity of 00:00: [place] 00 Medical Branch raltegravir Yes [id number] 400mg Take 1 Univers (ISENTRESS) 5-08 tablet by ity of 400 mg 00:00: mouth in [place] tablet 00 the Medical morning Branch and 1 tablet in the evening. emtricitabi Yes [id number] Take one Univers ne-tenofovi 4-04 po daily ity of r alafen 00:00: [place] (DESCOVY) 00 Medical tablet Branch emtricitabi Yes [id number] Take one Univers ne-tenofovi 4-04 po daily ity of r alafen 00:00: [place] (DESCOVY) 00 Medical tablet Branch emtricitabi 2022- No [id number] Take one Univers ne-tenofovi 4-04 05-08 po daily ity of r alafen 00:00: 00:00 [place] (DESCOVY) 00 :00 Medical tablet Branch potassium 2021-05 No 10meq 10 mEq, IV Univers chloride in 07-11 Piggyback, i ty of water 10 20:00: 22:00 ONCE, 1 [place] mEq/100 mL 00 :00 dose, On Medic al RTU 10 mEq [facility] 05/10/22 at 1400, Administer over 60 Minutes, 100 mL magnesium 2021-05 No 800mg 800 mg, Uni vers oxide 07-11 Oral, ity of (MAG-OX 20:00: 19:37 ONCE, 1 [place] 400) tablet 00 :00 dose, On Medi porfirio 800 mg [facility] 05/10/22 at 1400, Routine KCL 2021-05 No 40meq 40 mEq, Univers (KLOR-CON 07-11 Oral, ity of M20) tablet 19:15: 19:37 [place]CE, 1 [place] 40 mEq 00 :00 dose, On Medical [facility] 05/10/22 at 1315, JOE hydralAZINE 2021-05 No 10mg 10 mg, Uni vers (APRESOLINE 2-19 12-19 Slow IV ity of ) injection 18:45: 18:42 [place] 10 mg 00 :00 ONCE, 1 Medical dose, On Branch 05/10/22 at 1245, JOE NaCl 0.9% 2021-05 No 1000mL at 999 Uni vers (NS) bolus - 12-19 mL/hr, ity of infusion 17:45: 20:00 1,000 mL, [place] as 1,000 mL 00 :00 IV Medical Infusion, Branch ONCE, 1 dose, On 05/10/22 at 1145, JOE cefpodoxime 2021-05- No [id number] 100mg Take 1 Univers 100 mg 2-17 12-25 tablet by ity of tablet 00:00: 05:59 mouth in [place] 00 :00 the Medical morning Branch and 1 tablet in the evening. Do all this for 7 days. cefpodoxime 2021-05- No [id number] 100mg Take 1 Univers 100 mg 2-17 12-25 tablet by ity of tablet 00:00: 05:59 mouth in [place] 00 :00 the Medical morning Branch and 1 tablet in the evening. Do all this for 7 days. cefpodoxime 2021-05- No [id number] 100mg Take 1 Univers 100 mg 2-17 12-25 tablet by ity of tablet 00:00: 05:59 mouth in [place] 00 :00 the Medical morning Branch and [...] 1 Medical dose, On Branch [facility] 05/06/22 at 1600, JOE NaCl 0.9% 2021-05 1000mL at 999 Uni vers (NS) bolus 2-15 12-15 mL/hr, ity of infusion 22:00: 23:41 1,000 mL, [place] as 1,000 mL 00 :00 IV Medical Infusion, Branch ONCE, 1 dose, On [place] 05/06/22 at 1600, JOE ondansetron 2021-05 8mg 8 mg, Slow Univers (ZOFRAN 2-15 12-15 IV Push, ity of (PF)) 21:15: 22:19 ONCE, 1 [place] injection 8 00 :00 dose, On Medi porfirio mg [place] 05/06/22 at 1515, JOE ondansetron 2021-05 Yes [id number] 1-2 U nivers 4 mg tablet 2-15 tablets ity o f 00:00: every 8 [place] 00 hours as Medical needed for Branch nausea benzonatate 2021-05 Yes [id number] 200mg Take 1 Univers 200 mg 2-15 capsule by ity of capsule 00:00: mouth 3 [place] 00 (three) Medical times Branch daily as needed for Cough. albuterol 2021-05 Yes [id number] 2{puff} Inhale 2 Univers 90 2-15 Puffs ity of mcg/actuati 00:00: every 4 [place] on inhaler 00 (four) Medical hours as Branch needed for Wheezing or Shortness of Breath. butalbital- 2021-05 Yes [id number] 1{tbl} Take 1 Univers acetaminoph 2-15 tablet by ity of en-caff 00:00: mouth [place] 50-325-40 00 every 4 Medical mg tablet (four) Branch hours as needed (headache) . ondansetron 2021-05 Yes [id number] 1-2 U nivers 4 mg tablet 2-15 tablets ity o f 00:00: every 8 [place] 00 hours as Medical needed for Branch nausea benzonatate 2021-05 Yes [id number] 200mg Take 1 Univers 200 mg 2-15 capsule by ity of capsule 00:00: mouth 3 (three) Medical times Branch daily as needed for Cough. albuterol 2021-05 Yes [id number] 2{puff} Inhale 2 Univers 90 2-15 Puffs ity of mcg/actuati 00:00: every 4 [place] on inhaler 00 (four) Medical hours as Branch needed for Wheezing or Shortness of Breath. butalbital- 2021-05 Yes [id number] 1{tbl} Take 1 Univers acetaminoph 2-15 tablet by ity of en-caff 00:00: mouth [place] 50-325-40 00 every 4 Medical mg tablet (four) Branch hours as needed (headache) . ondansetron 2021-05 Yes [id number] 1-2 U nivers 4 mg tablet 2-15 tablets ity o f 00:00: every 8 [place] 00 hours as Medical needed for Branch nausea benzonatate 2021-05 Yes [id number] 200mg Take 1 Univers 200 mg 2-15 capsule by ity of capsule 00:00: mouth 3 (three) Medical times Branch daily as needed for Cough. albuterol 2021-05 Yes [id number] 2{puff} Inhale 2 Univers 90 2-15 Puffs ity of mcg/actuati 00:00: every 4 [place] on inhaler 00 (four) Medical hours as Branch needed for Wheezing or Shortness of Breath. butalbital- 2021-05 Yes [id number] 1{tbl} Take 1 Univers acetaminoph 2-15 tablet by ity of en-caff 00:00: mouth [place] 50-325-40 00 every 4 Medical mg tablet (four) Branch hours as needed (headache) . ondansetron 2021-05 Yes [id number] 1-2 U nivers 4 mg tablet 2-15 tablets ity o f 00:00: every 8 [place] 00 hours as Medical needed for Branch nausea benzonatate 2021-05 Yes [id number] 200mg Take 1 Univers 200 mg 2-15 capsule by ity of capsule 00:00: mouth 3 00 (three) Medical times Branch daily as needed for Cough. albuterol 2021-05 Yes [id number] 2{puff} Inhale 2 Univers 90 2-15 Puffs ity of mcg/actuati 00:00: every 4 [place] on inhaler 00 (four) Medical hours as Branch needed for Wheezing or Shortness of Breath. butalbital- 2021-05 Yes [id number] 1{tbl} Take 1 Univers acetaminoph 2-15 tablet by ity of en-caff 00:00: mouth [place] 50-325-40 00 every 4 Medical mg tablet (four) Branch hours as needed (headache) . ondansetron 2021-05 Yes [id number] 1-2 U nivers 4 mg tablet 2-15 tablets ity o f 00:00: every 8 [place] 00 hours as Medical needed for Branch nausea benzonatate 2021-05 Yes [id number] 200mg Take 1 Univers 200 mg 2-15 capsule by ity of capsule 00:00: mouth 3 [place] 00 (three) Medical times Branch daily as needed for Cough. albuterol 2021-05 Yes [id number] 2{puff} Inhale 2 Univers 90 2-15 Puffs ity of mcg/actuati 00:00: every 4 [place] on inhaler 00 (four) Medical hours as Branch needed for Wheezing or Shortness of Breath. butalbital- 2021-05 Yes [id number] 1{tbl} Take 1 Univers acetaminoph 2-15 tablet by ity of en-caff 00:00: mouth [place] 50-325-40 00 every 4 Medical mg tablet (four) Branch hours as needed (headache) . ondansetron 2021-05 Yes [id number] 1-2 U nivers 4 mg tablet 2-15 tablets ity o f 00:00: every 8 [place] 00 hours as Medical needed for Branch nausea benzonatate 2021-05 Yes [id number] 200mg Take 1 Univers 200 mg 2-15 capsule by ity of capsule 00:00: mouth 3 [place] 00 (three) Medical times Branch daily as needed for Cough. albuterol 2021-05 Yes [id number] 2{puff} Inhale 2 Univers 90 2-15 Puffs ity of mcg/actuati 00:00: every 4 [place] on inhaler 00 (four) Medical hours as Branch needed for Wheezing or Shortness of Breath. butalbital- 2021-05 Yes [id number] 1{tbl} Take 1 Univers acetaminoph 2-15 tablet by ity of en-caff 00:00: mouth [place] 50-325-40 00 every 4 Medical mg tablet (four) Branch hours as needed (headache) . ondansetron 2021-05 Yes [id number] 1-2 U nivers 4 mg tablet 2-15 tablets ity o f 00:00: every 8 [place] 00 hours as Medical needed for Branch nausea benzonatate 2021-05 Yes [id number] 200mg Take 1 Univers 200 mg 2-15 capsule by ity of capsule 00:00: mouth 3 [place] 00 (three) Medical times Branch daily as needed for Cough. albuterol 2021-05 Yes [id number] 2{puff} Inhale 2 Univers 90 2-15 Puffs ity of mcg/actuati 00:00: every 4 [place] on inhaler 00 (four) Medical hours as Branch needed for Wheezing or Shortness of Breath. butalbital- 2021-05 Yes [id number] 1{tbl} Take 1 Univers acetaminoph 2-15 tablet by ity of en-caff 00:00: mouth [place] 50-325-40 00 every 4 Medical mg tablet (four) Branch hours as needed (headache) . ondansetron 2021-05 Yes [id number] 1-2 U nivers 4 mg tablet 2-15 tablets ity o f 00:00: every 8 [place] 00 hours as Medical needed for Branch nausea benzonatate 2021-05 Yes [id number] 200mg Take 1 Univers 200 mg 2-15 capsule by ity of capsule 00:00: mouth 3 00 (three) Medical times Branch daily as needed for Cough. albuterol 2021-05 Yes [id number] 2{puff} Inhale 2 Univers 90 2-15 Puffs ity of mcg/actuati 00:00: every 4 [place] on inhaler 00 (four) Medical hours as Branch needed for Wheezing or Shortness of Breath. butalbital- 2021-05 Yes [id number] 1{tbl} Take 1 Univers acetaminoph 2-15 tablet by ity of en-caff 00:00: mouth [place] 50-325-40 00 every 4 Medical mg tablet (four) Branch hours as needed (headache) . ondansetron 2021-05 Yes [id number] 1-2 U nivers 4 mg tablet 2-15 tablets ity o f 00:00: every 8 [place] 00 hours as Medical needed for Branch nausea benzonatate 2021-05 Yes [id number] 200mg Take 1 Univers 200 mg 2-15 capsule by ity of capsule 00:00: mouth 3 [place] 00 (three) Medical times Branch daily as needed for Cough. albuterol 2021-05 Yes [id number] 2{puff} Inhale 2 Univers 90 2-15 Puffs ity of mcg/actuati 00:00: every 4 [place] on inhaler 00 (four) Medical hours as Branch needed for Wheezing or Shortness of Breath. butalbital- 2021-05 Yes [id number] 1{tbl} Take 1 Univers acetaminoph 2-15 tablet by ity of en-caff 00:00: mouth [place] 50-325-40 00 every 4 Medical mg tablet (four) Branch hours as needed (headache) . [facility]- No [id number] 2{tbl} Take 2 Univers r-ritonavir 2-15 12-21 tablets by i ty of (PAXLOVID, 00:00: 05:59 mouth in [place] EUA,) 300 00 :00 the Medical mg (150 mg morning Branch x 2)-100 mg and 2 tablet tablets in the evening. Do all this for 5 days. nirmatrelvi 2021-05- No [id number] 2{tbl} Take 2 Univers r-ritonavir 2-15 12-21 tablets by i ty of (PAXLOVID, 00:00: 05:59 mouth [place] EUA,) 300 00 :00 the Medical mg (150 mg morning Branch x 2)-100 mg and 2 tablet tablets in the evening. Do all this for 5 days. nircttrelvi 2021-05- No [id number] 2{tbl} Take 2 Univers r-ritonavir 2-15 12-21 tablets by i ty of (PAXLOVID, 00:00: 05:59 mouth in [place] EUA,) 300 00 :00 the Medical mg (150 mg morning Branch x 2)-100 mg and 2 tablet tablets in the evening. Do all this for 5 days. nirmatrelvi 2021-05- No [id number] 2{tbl} Take 2 Univers r-ritonavir 2-15 12-21 [...] 04/22/22 at 1645, Routine amoxicillin 2021-05 Yes [id number] 1{tbl} Take 1 Univers -clavulanat 2- [id number] tablet by i ty of e 875-125 00:00: mouth [place] mg per 00 every 12 Medical tablet (twelve) Branch hours. ondansetron 2021-05 Yes [id number] 4mg Take 1 Univers 4 mg 2- [id number] tablet by ity of disintegrat 00:00: mouth [place] ing tablet 00 every 8 Medica l (eight) Branch hours as needed for Nausea and Vomiting (N/V). amoxicillin 2021-05 Yes [id number] 1{tbl} Take 1 Univers -clavulanat 2- [id number] tablet by i ty of e 875-125 00:00: mouth [place] mg per 00 every 12 Medical tablet (twelve) Branch hours. ondansetron 2021-05 Yes [id number] 4mg Take 1 Univers 4 mg 2- [id number] tablet by ity of disintegrat 00:00: mouth [place] ing tablet 00 every 8 Medica l (eight) Branch hours as needed for Nausea and Vomiting (N/V). amoxicillin 2021-05 Yes [id number] 1{tbl} Take 1 Univers -clavulanat 2-01 [id number] tablet by i ty of e 875-125 00:00: mouth [place] mg per 00 every 12 Medical tablet (twelve) Branch hours. ondansetron 2021-05 Yes [id number] 4mg Take 1 Univers 4 mg 2- [id number] tablet by ity of disintegrat 00:00: mouth [place] ing tablet 00 every 8 Medica l (eight) Branch hours as needed for Nausea and Vomiting (N/V). amoxicillin 2021-05 Yes [id number] 1{tbl} Take 1 Univers -clavulanat 2-01 [id number] tablet by i ty of e 875-125 00:00: mouth [place] mg per 00 every 12 Medical tablet (twelve) Branch hours. ondansetron 2021-05 Yes [id number] 4mg Take 1 Univers 4 mg 2-01 [id number] tablet by ity of disintegrat 00:00: mouth [place] ing tablet 00 every 8 Medica l (eight) Branch hours as needed for Nausea and Vomiting (N/V). amoxicillin 2021-05 Yes [id number] 1{tbl} Take 1 Univers -clavulanat 2-01 [id number] tablet by i ty of e 875-125 00:00: mouth [place] mg per 00 every 12 Medical tablet (twelve) Branch hours. ondansetron 2021-05 Yes [id number] 4mg Take 1 Univers 4 mg 2- [id number] tablet by ity of disintegrat 00:00: mouth [place] ing tablet 00 every 8 Medica l (eight) Branch hours as needed for Nausea and Vomiting (N/V). amoxicillin 2021-05 Yes [id number] 1{tbl} Take 1 Univers -clavulanat 2-01 [id number] tablet by i ty of e 875-125 00:00: mouth [place] mg per 00 every 12 Medical tablet (twelve) Branch hours. ondansetron 2021-05 Yes [id number] 4mg Take 1 Univers 4 mg 2- [id number] tablet by ity of disintegrat 00:00: mouth [place] ing tablet 00 every 8 Medica l (eight) Branch hours as needed for Nausea and Vomiting (N/V). amoxicillin 2021-05 Yes [id number] 1{tbl} Take 1 Univers -clavulanat 2-01 [id number] tablet by i ty of e 875-125 00:00: mouth [place] mg per 00 every 12 Medical tablet (twelve) Branch hours. ondansetron 2021-05 Yes [id number] 4mg Take 1 Univers 4 mg 2-01 [id number] tablet by ity of disintegrat 00:00: mouth [place] ing tablet 00 every 8 Medica l (eight) Branch hours as needed for Nausea and Vomiting (N/V). amoxicillin 2021-05 Yes [id number] 1{tbl} Take 1 Univers -clavulanat 2-01 [id number] tablet by i ty of e 875-125 00:00: mouth [place] mg per 00 every 12 Medical tablet (twelve) Branch hours. ondansetron 2021-05 Yes [id number] 4mg Take 1 Univers 4 mg 2-01 [id number] tablet by ity of disintegrat 00:00: mouth [place] ing tablet 00 every 8 Medica l (eight) Branch hours as needed for Nausea and Vomiting (N/V). amoxicillin 2021-05 Yes [id number] 1{tbl} Take 1 Univers -clavulanat 2-01 [id number] tablet by i ty of e 875-125 00:00: mouth [place] mg per 00 every 12 Medical tablet (twelve) Branch hours. ondansetron 2021-05 Yes [id number] 4mg Take 1 Univers 4 mg 2- 745000 tablet by ity of disintegrat 00:00: mouth [place] ing tablet 00 every 8 Medica l (eight) Branch hours as needed for Nausea and Vomiting (N/V). amoxicillin 2021-05 Yes [id number] 1{tbl} Take 1 Univers -clavulanat 2-01 [id number] tablet by i ty of e 875-125 00:00: mouth [place] mg per 00 every 12 Medical tablet (twelve) Branch hours. ondansetron 2021-05 Yes [id number] 4mg Take 1 Univers 4 mg 2- [id number] tablet by ity of disintegrat 00:00: mouth [place] ing tablet 00 every 8 Medica l (eight) Branch hours as needed for Nausea and Vomiting (N/V). amoxicillin 2021-05 Yes [id number] 1{tbl} Take 1 Univers -clavulanat 2-01 [id number] tablet by i ty of e 875-125 00:00: mouth [place] mg per 00 every 12 Medical tablet (twelve) Branch hours. ondansetron 2021-05 Yes [id number] 4mg Take 1 Univers 4 mg 2-01 [id number] tablet by ity of disintegrat 00:00: mouth [place] ing tablet 00 every 8 Medica l (eight) Branch hours as needed for Nausea and Vomiting (N/V). zoster 2021-05- No [id number] .5mL 0.5 mL by Univers vaccine, 0-14 10-15 9104 Intramuscu ity of recombinant 00:00: 04:59 lar route [place] (SHINGRIX, 00 :00 once now Medic al PF,) for 1 Branch injection dose. And repeat in 2-6 months zoster 2021-05- No [id number] .5mL 0.5 mL by Univers vaccine, 0- 9104 Intramuscu ity of recombinant 00:00: 04:59 lar route [place] (SHINGRIX, 00 :00 once now Medic al PF,) for 1 Branch injection dose. And repeat in 2-6 months zoster 2021-05- No [id number] .5mL 0.5 mL by Univers vaccine, 0- [...] o f 1 mg tablet 19:28: at [place] [address] bedtime. Medical Branch traZODone Yes 50mg Take 50 mg Un matt 100 mg 9-27 by mouth ity of tablet 19:28: at [place] [address] bedtime. Medical Branch hydralAZINE Yes 25mg Take [...] o f 1 mg tablet 19:28: at [place] [address] bedtime. Medical Branch traZODone 2021-0 Yes 50mg Take 50 mg Un matt 100 mg 9- by mouth ity of tablet 19:28: at [place] [address] bedtime. Medical Branch hydralAZINE 2021-0 Yes 25mg [...] 100 mg 04 (two) Medical tablet times [place] daily. amLODIPine 2021-0 Yes 10mg Take 10 mg U nivers (NORVASC) 9-27 by mouth ity of 10 mg 19:28: daily. [place] tablet 04 Medical Branch clonazePAM 2021-0 Yes 1mg Take 1 mg Un matt (KLONOPIN) 9- by mouth ity o f 1 mg tablet 19:28: at [place] [address] bedtime. Medical Branch traZODone 2021-0 Yes 50mg Take 50 mg Un matt 100 mg 9-27 by mouth ity of tablet 19:28: at [place] [address] bedtime. Medical Branch hydralAZINE 2021-0 Yes 25mg [...] o f 1 mg tablet 19:28: at [place] [address] bedtime. Medical Branch traZODone 2021-0 Yes 50mg Take 50 mg Un matt 100 mg 9-27 by mouth ity of tablet 19:28: at [place] [address] bedtime. Medical Branch hydralAZINE 2021-0 Yes 25mg [...] mouth ity of 10 mg 19:28: daily. [place] tablet 04 Medical Branch clonazePAM 2021-0 Yes 1mg Take 1 mg Un matt (KLONOPIN) 9-27 by mouth ity o f 1 mg tablet 19:28: at [place] [address] bedtime. Medical Branch traZODone 2-0 Yes 50mg Take 50 mg Un matt 100 mg 9-27 by mouth ity of tablet 19:28: at [place] [address] bedtime. Medical Branch hydralAZINE 2022-0 Yes 25mg [...] o f 1 mg tablet 19:28: at [place] [address] bedtime. Medical Branch traZODone 2-0 Yes 50mg Take 50 mg Un matt 100 mg 9-27 by mouth ity of tablet 19:28: at [place] [address] bedtime. Medical Branch hydralAZINE 2-0 Yes 25mg [...] o f 1 mg tablet 19:28: at [place] [address] bedtime. Medical Branch traZODone 2021-0 Yes 50mg Take 50 mg Un matt 100 mg 9-27 by mouth ity of tablet 19:28: at [place] [address] bedtime. Medical Branch hydralAZINE 2021-0 Yes 25mg [...] o f 1 mg tablet 19:28: at [place] [address] bedtime. Medical Branch traZODone 2021-0 Yes 50mg Take 50 mg Un matt 100 mg 9-27 by mouth ity of tablet 19:28: at [place] [address] bedtime. Medical Branch hydralAZINE 2021-0 Yes 25mg [...] o f 1 mg tablet 19:28: at [place] [address] bedtime. Medical Branch traZODone 2021-0 Yes 50mg Take 50 mg Un matt 100 mg 9-27 by mouth ity of tablet 19:28: at [place] [address] bedtime. Medical Branch hydralAZINE 2021-0 Yes 25mg [...] o f 1 mg tablet 19:28: at [place] [address] bedtime. Medical Branch traZODone 2021-0 Yes 50mg Take 50 mg Un matt 100 mg 9- by mouth ity of tablet 19:28: at [place] [address] bedtime. Medical Branch hydralAZINE 2021-0 Yes 25mg [...] o f 1 mg tablet 19:28: at [place] [address] bedtime. Medical Branch traZODone 2021-0 Yes 50mg Take 50 mg Un matt 100 mg 9-27 by mouth ity of tablet 19:28: at [place] [address] bedtime. Medical Branch hydralAZINE 2021-0 Yes 25mg [...] o f 1 mg tablet 19:28: at [place] [address] bedtime. Medical Branch traZODone 2021-0 Yes 50mg Take 50 mg Un matt 100 mg 9-27 by mouth ity of tablet 19:28: at [place] [address] bedtime. Medical Branch hydralAZINE 2021-0 Yes 25mg [...] o f 1 mg tablet 19:28: at [place] [address] bedtime. Medical Branch traZODone 2021-0 Yes 50mg Take 50 mg Un matt 100 mg 9-27 by mouth ity of tablet 19:28: at [place] [address] bedtime. Medical Branch hydralAZINE 2021-0 Yes 25mg [...] 100 mg 04 (two) Medical tablet times [place] daily. amLODIPine 2021-0 Yes 10mg Take 10 mg U nivers (NORVASC) 9-27 by mouth ity of 10 mg 19:28: daily. [place] tablet 04 Medical Branch clonazePAM 2021-0 Yes 1mg Take 1 mg Un matt (KLONOPIN) 9-27 by mouth ity o f 1 mg tablet 19:28: at [place] [address] bedtime. Medical Branch traZODone 2021-0 Yes 50mg Take 50 mg Un matt 100 mg 9-27 by mouth ity of tablet 19:28: at [place] [address] bedtime. Medical Branch hydralAZINE 2021-0 Yes 25mg [...] o f 1 mg tablet 19:28: at [place] [address] bedtime. Medical Branch traZODone 2021-0 Yes 50mg Take 50 mg Un matt 100 mg 9-27 by mouth ity of tablet 19:28: at [place] [address] bedtime. Medical Branch hydralAZINE 2021-0 Yes 25mg [...] 100 mg 04 (two) Medical tablet times [place] daily. amLODIPine 2021-0 Yes 10mg Take 10 mg U nivers (NORVASC) 9-27 by mouth ity of 10 mg 19:28: daily. [place] tablet 04 Medical Branch clonazePAM 2021-0 Yes 1mg Take 1 mg Un matt (KLONOPIN) 9-27 by mouth ity o f 1 mg tablet 19:28: at [place] [address] bedtime. Medical Branch traZODone 2021-0 Yes 50mg Take 50 mg Un matt 100 mg 9-27 by mouth ity of tablet 19:28: at [place] [address] bedtime. Medical Branch hydralAZINE 2021-0 Yes 25mg [...] o f 1 mg tablet 19:28: at [place] [address] bedtime. Medical Branch traZODone 2-0 Yes 50mg Take 50 mg Un matt 100 mg 9-27 by mouth ity of tablet 19:28: at [place] [address] bedtime. Medical Branch hydralAZINE 2021-0 Yes 25mg [...] o f 1 mg tablet 19:28: at [place] [address] bedtime. Medical Branch traZODone 2-0 Yes 50mg Take 50 mg Un matt 100 mg 9-27 by mouth ity of tablet 19:28: at [place] [address] bedtime. Medical Branch hydralAZINE 2-0 Yes 25mg [...] mouth ity of 10 mg 19:28: daily. [place] tablet 04 [facility] Branch clonazePAM 0 Yes 1mg Take 1 mg Un matt (KLONOPIN) 02-16 by mouth ity o f 1 mg tablet 19:28: at [place] [address] bedtime. Medical Branch traZODone 0 Yes 50mg Take 50 mg Un matt 100 mg 02-16 by mouth ity of tablet 19:28: at [place] [address] bedtime. Medical Branch cefpodoxime 2021-0 202- No [id number] 200mg Take 1 [facility] 200 mg 02-16 tablet by ity of tablet 00:00: 04:59 mouth in [place] 00 :00 the Medical morning Branch and 1 tablet in the evening. Do all this for 3 days. cefpodoxime 2021-0 2022- No [id number] 200mg Take 1 [facility] 200 mg 02-16 tablet by ity of tablet 00:00: 04:59 mouth in [place] 00 :00 the [facility] morning Branch and 1 tablet in the evening. Do all this for 3 days. haloperidol 2021-0 2021- No 2mg 2 mg, Slow Univers [...] [place] (ESGIC) 06 Starting Medical 50-325-40 on [facility] Branch mg tablet 1 02/13/22 at tablet 1346, Until Discontinu ed, Routine, headaches dicyclomine Yes 10mg 10 mg, Univ ers (BENTYL) 02-13 Oral, QID, ity o f capsule 10 17:00: First dose [place] mg 00 on [facility] 02/13/22 at Branch 1200, Until Discontinu ed, Routine tiZANidine Yes 4mg 4 mg, Univer s (ZANAFLEX) 02-12 Oral, Q8H, ity of tablet 4 mg 19:00: First dose [place] 00 on Tue [facility] 02/12/22 at Branch 1400, Until Discontinu ed, Routine HYDROmorpho Yes 4mg 4 mg, Unive rs ne 02-12 Oral, ity of (DILAUDID) 17:37: Q6HPRN, [place] tablet 4 mg 07 Starting Medi porfirio on Tue [place] 02/12/22 at 1237, Until Discontinu ed, Routine, Pain (scale 4-6) morpHINE (2 2021- No 2mg 2 mg, Slow Univers mg/mL) 02-12 IV Push, ity of injection 2 17:36: 20:36 Q6HPRN, [place] mg 46 :24 Starting Medical on Tue [place] 02/12/22 at 1236, Until [place] 02/14/22 at 1536, Routine, Pain (scale 7-10) cefTRIAXone 2021-0 202- No 2000mg 2,000 mg, Univers (ROCEPHIN) 02-12 IV ity of 2,000 mg in 17:00: 18:24 Piggyback, [place] NaCl 0.9% 00 :00 Q24H ABX, Medic [...] s mg 37 Starting Medical on [facility] Branch 02/11/22 at 1618, Until Discontinu ed, Routine, SBP > 170 nystatin-tr 2021-0 Yes Topical, Un matt iamcinolone 02-11 TID, First it y of (MYCOLOG) 19:00: dose on [place] cream 00 [facility] Medical 02/11/22 at Branch 1400, Until Discontinu ed, Routine busPIRone 2021-0 Yes 30mg 30 mg, Univer s (BUSPAR) 02-11 Oral, BID, ity o f tablet 30 18:00: First dose [place] mg 00 on [facility] Medical 02/11/22 at Branch 1300, Until Discontinu ed, Routine raltegravir 2021-0 Yes 400mg 400 mg, Un matt (ISENTRESS) 02-11 Oral, BID, it y of tablet 400 18:00: First dose [place] mg 00 on [facility] Medical 02/11/22 at Branch 1300, Until Discontinu ed, JOE metoprolol 2021-0 Yes 100mg 100 mg, Uni vers tartrate 02-11 Oral, BID, ity o f (LOPRESSOR) 18:00: First dose [place] tablet 100 00 on [facility] Medical mg 02/11/22 at Branch 1300, Until Discontinu ed, Routine lisinopriL 2021-0 Yes 40mg 40 mg, Unive rs (PRINIVIL,Z 02-11 Oral, BID, it y of ESTRIL) 18:00: First dose [place] tablet 40 00 on [facility] Medical mg 02/11/22 at Branch 1300, Until Discontinu ed, Routine emtricitabi 2021-0 Yes 1{tbl} 1 tablet, Univers ne-tenofovi 02-11 Oral, ity of r alafen 18:00: DAILY, [place] (DESCOVY) 00 First dose Medi porfirio tablet 1 on [facility] Branch tablet 02/11/22 at 1300, Until Discontinu ed, Routine ipratropium 2021-0 Yes .5mg 0.5 mg, Uni vers (ATROVENT) 02-11 Inhalation ity of 0.02 % 17:57: , QIDPRN, [place] nebulizer 10 Starting Medica l solution on [facility] Branch 0.5 mg 02/11/22 at 1257, Until Discontinu ed, Routine, Wheezing, Shortness of Breath amLODIPine Yes 10mg 10 mg, Unive rs (NORVASC) 02-11 Oral, ity of tablet 10 17:30: DAILY, [place] mg 00 First dose Medical (after Branch last modificati on) on [facility] 02/11/22 at 1230, Until Discontinu ed, Routine hydrALAZINE 2021- No 25mg 25 mg, Uni vers (APRESOLINE 02-11 Oral, ity of ) tablet 25 17:30: 12:54 DAILY, [place] mg 00 :55 First dose Medical (after Branch last modificati on) on [facility] 02/11/22 at 1230, Until Discontinu ed, Routine HYDROcodone 2021- No 1{tbl} 1 tablet, Univers -acetaminop 02-11 Oral, ity of [place] (NORCO 14:11: 17:37 Q6HPRN, [place] 5) 5-325 mg 03 :24 Starting Medi porfirio tablet 1 on [facility] Branch tablet 02/11/22 at 0911, Until Tue02/12/22 at 1237, Routine, Pain (scale 7-10) melatonin Yes 3mg 3 mg, Univers (MELATIN) 02-11 Oral, ity of tablet 3 mg 14:08: QHSPRN, [place] 17 Starting Medical on [facility] Branch 02/11/22 at 0908, Until Discontinu ed, Routine, Insomnia acetaminoph 2021- No 1{tbl} 1 tablet, Univers en-codeine 02-11 Oral, ity of (TYLENOL 14:06: 17:37 Q6HPRN, [place] #3) 300-30 19 :24 Starting Medic al mg tablet 1 on [facility] Branch tablet 02/11/22 at 0906, Until Tue02/12/22 at 1237, Routine, Pain (scale 4-6) sennosides- Yes 1{tbl} 1 tablet, Univers docusate 02-11 Oral, ity of sodium 14:06: QDAILYPRN, [place] (SENOKOT-S) 09 Starting Medi porfirio 8.6-50 mg on [place] Branch per tablet 02/11/22 at 1 tablet 0906, Until Discontinu ed, Routine, Constipati on ondansetron 2021-0 Yes 4mg 4 mg, Slow Univers (ZOFRAN 02-11 IV Push, ity of (PF)) 14:05: Q6HPRN, [place] injection 4 59 Starting Medi porfirio mg on [place] Branch 02/11/22 at 0905, Until Discontinu ed, Routine, Nausea and Vomiting (N/V) acetaminoph 2021-0 Yes 650mg 650 mg, Un matt en 02-11 Oral, ity of (TYLENOL) 14:04: Q6HPRN, [place] tablet 650 37 Starting Medic al mg [...] (two) Medical tablet times Branch daily. hydralAZINE 2021-0 Yes 25mg Take 25 mg Univers (APRESOLINE 02-11 by mouth ity of ) 25 mg 09:10: daily. [place] tablet 54 Medical Branch amLODIPine 2021-0 Yes 10mg Take 10 mg U nivers (NORVASC) 02-11 by mouth ity of 10 mg 09:10: daily. [place] tablet 54 Medical Branch piperacilli 2021-0 202- [...] of therapy: 72 hours iopamidol 2021- No [id number] 60mL 60 mL, Univers (ISOVUE 02-11 Intravenou [...] Branch 02/11/22 at 0015, JOE emtricitabi Yes [id number] Take one Univers ne-tenofovi 9-12 po daily ity of r alafen 00:00: [place] (DESCOVY) 00 Medical tablet Branch emtricitabi Yes [id number] Take one Univers ne-tenofovi 9-12 po daily ity of r alafen 00:00: [place] (DESCOVY) 00 Medical tablet [facility] [id number] Take one Univers ne-tenofovi 9-12 po daily ity of r alafen 00:00: [place] (DESCOVY) 00 Medical tablet Branch emtricita Yes [id number] Take one Univers ne-tenofovi 9-12 po daily ity of r alafen 00:00: [place] (DESCOVY) 00 Medical tablet Branch emtricita Yes [id number] Take one Univers ne-tenofovi 9-12 po daily ity of r alafen 00:00: [place] (DESCOVY) 00 Medical tablet Branch emtricita Yes [id number] Take one Univers ne-tenofovi 9-12 po daily ity of r alafen 00:00: [place] (DESCOVY) 00 Medical tablet Branch [facility] [id number] Take one Univers ne-tenofovi 9-12 po daily ity of r alafen 00:00: [place] (DESCOVY) 00 Medical tablet Branch [facility] [id number] Take one Univers ne-tenofovi 9-12 po daily ity of r alafen 00:00: [place] (DESCOVY) 00 Medical tablet Branch emtricita Yes [id number] Take one Univers ne-tenofovi 9-12 po daily ity of r alafen 00:00: [place] (DESCOVY) 00 Medical tablet Branch emtricita Yes [id number] Take one Univers ne-tenofovi 9-12 po daily ity of r alafen 00:00: [place] (DESCOVY) 00 Medical tablet Branch emtricita Yes [id number] Take one Univers ne-tenofovi 9-12 po daily ity of r alafen 00:00: [place] (DESCOVY) 00 Medical tablet Branch emtricita Yes [id number] Take one Univers ne-tenofovi 9-12 po daily ity of r alafen 00:00: [place] (DESCOVY) 00 Medical tablet Branch emtricita Yes [id number] Take one Univers ne-tenofovi 9-12 po daily ity of r alafen 00:00: [place] (DESCOVY) 00 Medical tablet Branch emtricitabi 0 Yes [id number] Take one Univers ne-tenofovi 9-12 po daily ity of r alafen 00:00: [place] (DESCOVY) 00 Medical tablet Branch emtricitabi 0 Yes [id number] Take one Univers ne-tenofovi 9-12 po daily ity of r alafen 00:00: [place] (DESCOVY) 00 Medical tablet Branch emtricitabi 0 Yes [id number] Take one Univers ne-tenofovi 9-12 po daily ity of r alafen 00:00: [place] (DESCOVY) 00 Medical tablet Branch emtricitabi Yes [id number] Take one Univers ne-tenofovi 9-12 po daily ity of r alafen 00:00: [place] (DESCOVY) 00 Medical tablet Branch emtricitabi 2023- No [id number] Take one Univers ne-tenofovi 9-12 04-04 po daily ity of r alafen 00:00: 00:00 [place] (DESCOVY) 00 :00 Medical tablet Branch emtricitabi 0 2023- No [id number] Take one Univers ne-tenofovi 9-12 04-04 po daily ity of r alafen 00:00: 00:00 [place] (DESCOVY) 00 :00 Medical tablet Branch naproxen 2021-0 Yes [id number] 500mg Take 1 U nivers (NAPROSYN) 7-24 tablet by ity of 500 mg 00:00: mouth in [place] tablet 00 the Medical morning Branch and 1 tablet in the evening. Take with meals. methocarbam 2021-0 Yes [id number] 500mg Take 1 Univers oL 500 mg 7-24 tablet by ity o f tablet 00:00: mouth 4 [place] 00 (four) Medical times Branch daily. naproxen 2021-0 Yes [id number] 500mg Take 1 U nivers (NAPROSYN) 7-24 tablet by ity of 500 mg 00:00: mouth in [place] tablet 00 the Medical morning Branch and 1 tablet in the evening. Take with meals. methocarbam 2021-0 Yes [id number] 500mg Take 1 Univers oL 500 mg 7-24 tablet by ity o f tablet 00:00: mouth 4 [place] 00 (four) Medical times [place] daily. naproxen 2021-0 Yes [id number] 500mg Take 1 U nivers (NAPROSYN) 7-24 tablet by ity of 500 mg 00:00: mouth in [place] tablet 00 the Medical morning Branch and 1 tablet in the evening. Take with meals. methocarbam 2021-0 Yes [id number] 500mg Take 1 Univers oL 500 mg 7-24 tablet by ity o f tablet 00:00: mouth 4 [place] 00 ([facility]) Medical times Branch daily. naproxen 2021-2021- No [id number] 500mg Take 1 Univers (NAPROSYN) 7-24 10-14 tablet by ity of 500 mg 00:00: 00:00 mouth in [place] tablet 00 :00 the Medical morning Branch and 1 tablet in the evening. Take with meals. methocarbam 2021- No [id number] 500mg Take 1 Univers oL 500 mg 7-24 10-14 tablet by ity of tablet 00:00: 00:00 mouth 4 [place] 00 :00 ([facility]) [facility] times [place] daily. naproxen 2021-2021- No [id number] 500mg Take 1 Univers (NAPROSYN) 7-24 10-14 tablet by ity of 500 mg 00:00: 00:00 mouth in [place] tablet 00 :00 the [facility] morning Branch and 1 tablet in the evening. Take with meals. methocarbam 2021- No [id number] 500mg Take 1 Univers oL 500 mg 7-24 10-14 tablet by ity of tablet 00:00: 00:00 mouth 4 [place] 00 :00 ([facility]) Medical times [place] daily. esomeprazol 2021- No 40mg Take 40 [...] ty of mg tablet 09:11: 00:00 (two) [place] 35 :00 times Medical daily. Branch traZODONE 2021- No Take by [facility] ers (DESYREL) 11-20 mouth at ity o f 10 mg/mL 09:10: 00:00 bedtime. [place] oral 28 :00 Medical suspension Branch hydralAZINE Yes 25mg Take 25 mg Univers (APRESOLINE 11-20 by mouth ity of ) 25 mg 08:47: daily. [place] tablet 47 Medical Branch cephALEXin 2021- No [id number] 500mg Take 1 Univers (KEFLEX) 10-24 capsule [...] 7-10). Indication s: acute pain buPROPion Yes [id number] 150mg Take 1 U nivers XL 4-12 tablet by ity of (WELLBUTRIN 00:00: mouth [place] XL) 150 mg 00 daily. Medical 24 hr Branch tablet busPIRone Yes [id number] 30mg Take 1 Un matt 30 mg 4-12 tablet by ity of tablet 00:00: mouth 2 [place] 00 (two) Medical times Branch daily. SERTraline Yes [id number] 200mg Take 2 Univers 100 mg 4-12 tablets by ity of tablet 00:00: mouth [place] 00 daily. Medical Branch buPROPion Yes [id number] 150mg Take 1 U nivers XL 4-12 tablet by ity of (WELLBUTRIN 00:00: mouth [place] XL) 150 mg 00 daily. Medical 24 hr Branch tablet busPIRone Yes [id number] 30mg Take 1 Un matt 30 mg 4-12 tablet by ity of tablet 00:00: mouth 2 [place] 00 (two) Medical times Branch daily. SERTraline 2021-0 Yes [id number] 200mg Take 2 Univers 100 mg 4-12 tablets by ity of tablet 00:00: mouth [place] 00 daily. Medical Branch buPROPion 2021-0 Yes [id number] 150mg Take 1 U nivers XL 4-12 tablet by ity of (WELLBUTRIN 00:00: mouth [place] XL) 150 mg 00 daily. Medical 24 hr Branch tablet busPIRone 2021-0 Yes [id number] 30mg Take 1 Un matt 30 mg 4-12 tablet by ity of tablet 00:00: mouth 2 [place] 00 (two) Medical times Branch daily. SERTraline 2021-0 Yes [id number] 200mg Take 2 Univers 100 mg 4-12 tablets by ity of tablet 00:00: mouth [place] 00 daily. Medical Branch buPROPion 2021-0 Yes [id number] 150mg Take 1 U nivers XL 4-12 tablet by ity of (WELLBUTRIN 00:00: mouth [place] XL) 150 mg 00 daily. Medical 24 hr Branch tablet busPIRone 2021-0 Yes [id number] 30mg Take 1 Un matt 30 mg 4-12 tablet by ity of tablet 00:00: mouth 2 00 (two) Medical times Branch daily. SERTraline 2021-0 Yes [id number] 200mg Take 2 Univers 100 mg 4-12 tablets by ity of tablet 00:00: mouth [place] 00 daily. Medical Branch buPROPion 2021-0 Yes [id number] 150mg Take 1 U nivers XL 4-12 tablet by ity of (WELLBUTRIN 00:00: mouth [place] XL) 150 mg 00 daily. Medical 24 hr Branch tablet busPIRone 2021-0 Yes [id number] 30mg Take 1 Un matt 30 mg 4-12 tablet by ity of tablet 00:00: mouth 2 [place] 00 (two) Medical times Branch daily. SERTraline 2021-0 Yes [id number] 200mg Take 2 Univers 100 mg 4-12 tablets by ity of tablet 00:00: mouth [place] 00 daily. Medical Branch buPROPion 2021-0 Yes [id number] 150mg Take 1 U nivers XL 4-12 tablet by ity of (WELLBUTRIN 00:00: mouth [place] XL) 150 mg 00 daily. Medical 24 hr Branch tablet busPIRone 2021-0 Yes [id number] 30mg Take 1 Un matt 30 mg 4-12 tablet by ity of tablet 00:00: mouth 2 [place] 00 (two) Medical times Branch daily. SERTraline 2021-0 Yes [id number] 200mg Take 2 Univers 100 mg 4-12 tablets by ity of tablet 00:00: mouth [place] 00 daily. Medical Branch buPROPion 2021-0 Yes [id number] 150mg Take 1 U nivers XL 4-12 tablet by ity of (WELLBUTRIN 00:00: mouth [place] XL) 150 mg 00 daily. Medical 24 hr Branch tablet busPIRone 2021-0 Yes [id number] 30mg Take 1 Un matt 30 mg 4-12 tablet by ity of tablet 00:00: mouth 2 [place] 00 (two) Medical times Branch daily. SERTraline 2021-0 Yes [id number] 200mg Take 2 Univers 100 mg 4-12 tablets by ity of tablet 00:00: mouth [place] 00 daily. Medical Branch buPROPion 2021-0 Yes [id number] 150mg Take 1 U nivers XL 4-12 tablet by ity of (WELLBUTRIN 00:00: mouth [place] XL) 150 mg 00 daily. Medical 24 hr Branch tablet busPIRone 2021-0 Yes [id number] 30mg Take 1 Un matt 30 mg 4-12 tablet by ity of tablet 00:00: mouth 2 [place] 00 (two) Medical times Branch daily. SERTraline 2021-0 Yes [id number] 200mg Take 2 Univers 100 mg 4-12 tablets by ity of tablet 00:00: mouth [place] 00 daily. Medical Branch buPROPion 2021-0 Yes [id number] 150mg Take 1 U nivers XL 4-12 tablet by ity of (WELLBUTRIN 00:00: mouth [place] XL) 150 mg 00 daily. Medical 24 hr Branch tablet busPIRone 2021-0 Yes [id number] 30mg Take 1 Un matt 30 mg 4-12 tablet by ity of tablet 00:00: mouth 2 [place] 00 (two) Medical times Branch daily. SERTraline 2021-0 Yes [id number] 200mg Take 2 Univers 100 mg 4-12 tablets by ity of tablet 00:00: mouth [place] 00 daily. Medical Branch buPROPion 2021-0 Yes [id number] 150mg Take 1 U nivers XL 4-12 tablet by ity of (WELLBUTRIN 00:00: mouth [place] XL) 150 mg 00 daily. Medical 24 hr Branch tablet busPIRone 2021-0 Yes [id number] 30mg Take 1 Un matt 30 mg 4-12 tablet by ity of tablet 00:00: mouth 2 00 (two) Medical times Branch daily. SERTraline 2021-0 Yes [id number] 200mg Take 2 Univers 100 mg 4-12 tablets by ity of tablet 00:00: mouth [place] 00 daily. Medical Branch buPROPion 2021-0 Yes [id number] 150mg Take 1 U nivers XL 4-12 tablet by ity of (WELLBUTRIN 00:00: mouth [place] XL) 150 mg 00 daily. Medical 24 hr Branch tablet busPIRone 2021-0 Yes [id number] 30mg Take 1 Un matt 30 mg 4-12 tablet by ity of tablet 00:00: mouth 2 (two) Medical times Branch daily. SERTraline 2021-0 Yes [id number] 200mg Take 2 Univers 100 mg 4-12 tablets by ity of tablet 00:00: mouth [place] 00 daily. Medical Branch buPROPion 2021-0 Yes [id number] 150mg Take 1 U nivers XL 4-12 tablet by ity of (WELLBUTRIN 00:00: mouth [place] XL) 150 mg 00 daily. Medical 24 hr Branch tablet busPIRone 2021-0 Yes [id number] 30mg Take 1 Un matt 30 mg 4-12 tablet by ity of tablet 00:00: mouth 2 (two) Medical times Branch daily. SERTraline 2021-0 Yes [id number] 200mg Take 2 Univers 100 mg 4-12 tablets by ity of tablet 00:00: mouth [place] 00 daily. Medical Branch buPROPion 2021-0 Yes [id number] 150mg Take 1 U nivers XL 4-12 tablet by ity of (WELLBUTRIN 00:00: mouth [place] XL) 150 mg 00 daily. Medical 24 hr Branch tablet busPIRone 2021-0 Yes [id number] 30mg Take 1 Un matt 30 mg 4-12 tablet by ity of tablet 00:00: mouth 2 (two) Medical times Branch daily. SERTraline 2021-0 Yes [id number] 200mg Take 2 Univers 100 mg 4-12 tablets by ity of tablet 00:00: mouth [place] 00 daily. Medical Branch buPROPion 2021-0 Yes [id number] 150mg Take 1 U nivers XL 4-12 tablet by ity of (WELLBUTRIN 00:00: mouth [place] XL) 150 mg 00 daily. Medical 24 hr Branch tablet busPIRone 2021-0 Yes [id number] 30mg Take 1 Un matt 30 mg 4-12 tablet by ity of tablet 00:00: mouth 2 [place] 00 (two) Medical times Branch daily. SERTraline 2021-0 Yes [id number] 200mg Take 2 Univers 100 mg 4-12 tablets by ity of tablet 00:00: mouth [place] 00 daily. Medical Branch buPROPion 2021-0 Yes [id number] 150mg Take 1 U nivers XL 4-12 tablet by ity of (WELLBUTRIN 00:00: mouth [place] XL) 150 mg 00 daily. Medical 24 hr Branch tablet busPIRone 2021-0 Yes [id number] 30mg Take 1 Un matt 30 mg 4-12 tablet by ity of tablet 00:00: mouth 2 [place] 00 (two) Medical times Branch daily. SERTraline 2021-0 Yes [id number] 200mg Take 2 Univers 100 mg 4-12 tablets by ity of tablet 00:00: mouth [place] 00 daily. Medical Branch buPROPion 2021-0 Yes [id number] 150mg Take 1 U nivers XL 4-12 tablet by ity of (WELLBUTRIN 00:00: mouth [place] XL) 150 mg 00 daily. Medical 24 hr Branch tablet busPIRone 2021-0 Yes [id number] 30mg Take 1 Un matt 30 mg 4-12 tablet by ity of tablet 00:00: mouth 2 [place] 00 (two) Medical times Branch daily. SERTraline 2021-0 Yes [id number] 200mg Take 2 Univers 100 mg 4-12 tablets by ity of tablet 00:00: mouth [place] 00 daily. Medical Branch buPROPion 2021-0 Yes [id number] 150mg Take 1 U nivers XL 4-12 tablet by ity of (WELLBUTRIN 00:00: mouth [place] XL) 150 mg 00 daily. Medical 24 hr Branch tablet busPIRone 2021-0 Yes [id number] 30mg Take 1 Un matt 30 mg 4-12 tablet by ity of tablet 00:00: mouth 2 [place] 00 (two) Medical times Branch daily. SERTraline 2021-0 Yes [id number] 200mg Take 2 Univers 100 mg 4-12 tablets by ity of tablet 00:00: mouth [place] 00 daily. Medical Branch buPROPion 0 Yes [id number] 150mg Take 1 U nivers XL 4-12 tablet by ity of (WELLBUTRIN 00:00: mouth [place] XL) 150 mg 00 daily. Medical 24 hr Branch tablet busPIRone 2021-0 Yes [id number] 30mg Take 1 Un matt 30 mg 4-12 tablet by ity of tablet 00:00: mouth 2 [place] 00 (two) Medical times Branch daily. SERTraline 0 Yes [id number] 200mg Take 2 Univers 100 mg 4-12 tablets by ity of tablet 00:00: mouth [place] 00 daily. Medical Branch buPROPion 0 Yes [id number] 150mg Take 1 U nivers XL 4-12 tablet by ity of (WELLBUTRIN 00:00: mouth [place] XL) 150 mg 00 daily. Medical 24 hr Branch tablet busPIRone 2021-0 Yes [id number] 30mg Take 1 Un matt 30 mg 4-12 tablet by ity of tablet 00:00: mouth 2 [place] 00 (two) Medical times Branch daily. SERTraline 2021-0 Yes [id number] 200mg Take 2 Univers 100 mg 4-12 tablets by ity of tablet 00:00: mouth [place] 00 daily. Medical Branch buPROPion 0 Yes [id number] 150mg Take 1 U nivers XL 4-12 tablet by ity of (WELLBUTRIN 00:00: mouth [place] XL) 150 mg 00 daily. Medical 24 hr Branch tablet busPIRone 2021-0 Yes [id number] 30mg Take 1 Un matt 30 mg 4-12 tablet by ity of tablet 00:00: mouth 2 [place] 00 (two) Medical times Branch daily. SERTraline 2021-0 Yes [id number] 200mg Take 2 Univers 100 mg 4-12 tablets by ity of tablet 00:00: mouth [place] 00 daily. Medical Branch buPROPion 2021-0 Yes [id number] 150mg Take 1 U nivers XL 4-12 tablet by ity of (WELLBUTRIN 00:00: mouth [place] XL) 150 mg 00 daily. Medical 24 hr Branch tablet busPIRone 2021-0 Yes [id number] 30mg Take 1 Un matt 30 mg 4-12 tablet by ity of tablet 00:00: mouth 2 [place] 00 (two) Medical times Branch daily. SERTraline 2021-0 Yes [id number] 200mg Take 2 Univers 100 mg 4-12 tablets by ity of tablet 00:00: mouth [place] 00 daily. Medical Branch raltegravir 2021-0 Yes [id number] 400mg Take 1 Univers (ISENTRESS) 3-28 tablet by ity of 400 mg 00:00: mouth 2 [place] tablet 00 (two) Medical times Branch daily. raltegravir 2021-0 Yes [id number] 400mg Take 1 Univers (ISENTRESS) 3-28 tablet by ity of 400 mg 00:00: mouth 2 [place] tablet 00 (two) Medical times Branch daily. raltegravir 2021-0 Yes [id number] 400mg Take 1 Univers (ISENTRESS) 3-28 tablet by ity of 400 mg 00:00: mouth 2 [place] tablet 00 (two) Medical times Branch daily. raltegravir 2021-0 Yes [id number] 400mg Take 1 Univers (ISENTRESS) 3-28 tablet by ity of 400 mg 00:00: mouth 2 [place] tablet 00 (two) Medical times Branch daily. raltegravir 2021-0 Yes [id number] 400mg Take 1 Univers (ISENTRESS) 3-28 tablet by ity of 400 mg 00:00: mouth 2 [place] tablet 00 (two) Medical times Branch daily. raltegravir 2021-0 Yes [id number] 400mg Take 1 Univers (ISENTRESS) 3-28 tablet by ity of 400 mg 00:00: mouth 2 [place] tablet 00 (two) Medical times Branch daily. raltegravir 2021-0 Yes [id number] 400mg Take 1 [facility] ([facility]TRESS) 3-28 tablet by ity of 400 mg 00:00: mouth 2 [place] tablet 00 (two) Medical times Branch daily. raltegravir 2021-0 Yes [id number] 400mg Take 1 [facility] (ISENTRESS) 3-28 tablet by ity of 400 mg 00:00: mouth 2 [place] tablet 00 (two) Medical times Branch daily. raltegravir 2022-0 Yes [id number] 400mg Take 1 [facility] (ISENTRESS) 3-28 tablet by ity of 400 mg 00:00: mouth 2 [place] tablet 00 (two) Medical times Branch daily. raltegravir 2022-0 Yes [id number] 400mg Take 1 [facility] (ISENTRESS) 3-28 tablet by ity of 400 mg 00:00: mouth 2 [place] tablet 00 (two) Medical times Branch daily. raltegravir 2022-0 Yes [id number] 400mg Take 1 [facility] (ISENTRESS) 3-28 tablet by ity of 400 mg 00:00: mouth 2 [place] tablet 00 (two) Medical times Branch daily. raltegravir 2022-0 Yes [id number] 400mg Take 1 [facility] (ISENTRESS) 3-28 tablet by ity of 400 mg 00:00: mouth 2 [place] tablet 00 (two) Medical times Branch daily. raltegravir 2-0 Yes [id number] 400mg Take 1 [facility] (ISENTRESS) 3-28 tablet by ity of 400 mg 00:00: mouth 2 [place] tablet 00 (two) Medical times Branch daily. raltegravir 2-0 Yes [id number] 400mg Take 1 [facility] (ISENTRESS) 3-28 tablet by ity of 400 mg 00:00: mouth 2 [place] tablet 00 (two) Medical times Branch daily. raltegravir 2022-0 Yes [id number] 400mg Take 1 [facility] (ISENTRESS) 3-28 tablet by ity of 400 mg 00:00: mouth 2 [place] tablet 00 (two) Medical times Branch daily. raltegravir 2022-0 Yes [id number] 400mg Take 1 [facility] (ISENTRESS) 3-28 tablet by ity of 400 mg 00:00: mouth 2 [place] tablet 00 (two) Medical times Branch daily. raltegravir 2022-0 Yes [id number] 400mg Take 1 [facility] (ISENTRESS) 3-28 tablet by ity of 400 mg 00:00: mouth 2 [place] tablet 00 (two) Medical times Branch daily. raltegravir 2022-0 Yes [id number] 400mg Take 1 [facility] (ISENTRESS) 3-28 tablet by ity of 400 mg 00:00: mouth 2 [place] tablet 00 (two) Medical times Branch daily. raltegravir Yes [id number] 400mg Take 1 [facility] (ISENTRESS) 3-28 tablet by ity of 400 mg 00:00: mouth 2 [place] tablet 00 (two) Medical times Branch daily. raltegravir Yes [id number] 400mg Take 1 [facility] (ISENTRESS) 3-28 tablet by ity of 400 mg 00:00: mouth 2 [place] tablet 00 (two) Medical times Branch daily. raltegravir 2022- No [id number] 400mg Take 1 [facility] (ISENTRESS) 3-28 05-08 tablet by it y of 400 mg 00:00: 00:00 mouth 2 [place] tablet 00 :00 (two) Medical times Branch daily. LORazepam 1 2021- No [id number] 1mg Take 1 [facility] mg tablet 3-10 [...] times a tablet day. emtricitabi 2021- No [id number] Take one [facility] ne-tenofovi 1-20 09-12 po daily ity of r alafen 00:00: 00:00 [place] (DESCOVY) 00 :00 Medical tablet Branch metoprolol Yes [id number] Take 1 [facility] tartrate 7-26 tablet [facility] (Lopressor) 00:00: (100 mg 100 MG 00 total) by tablet mouth 2 (two) times a day AND 0.5 tablets (50 mg total) every night. metoprolol Yes [id number] Take 1 [facility] tartrate 7-26 [facility] (Lopressor) 00:00: (100 mg 100 MG 00 total) by tablet mouth 2 (two) times a day AND 0.5 tablets (50 mg total) every night. raltegravir 0 Yes 400mg Q.5D Take 400 [facility] (Isentress) 7-23 mg by Health 400 MG 08:03: mouth 2 tablet 05 (two) times a day. LORAZepam 0 Yes 2mg QD Take 2 [...] (affected area in groin) hydrALAZINE Yes 50mg Q.[id number] Take 50 mg [facility] (APRESOLINE 7-19 [id number] [address] mouth [facility] ) 50 MG [...] area in groin) hydrALAZINE 0 Yes 50mg Q.34646550 Take 50 mg [facility] (APRESOLINE 7-19 [id number] [address] mouth [facility] ) 50 MG [...] area in groin) hydrALAZINE 0 Yes 50mg Q.51364751 Take 50 mg [facility] (APRESOLINE 7-[id number] mouth [facility] ) 50 MG [...] (affected area in groin) hydrALAZINE Yes 50mg Q.69070827 Take 50 mg [facility] (APRESOLINE 7-[id number] mouth [address] ) 50 MG [...] area in groin) hydrALAZINE 0 Yes 50mg Q.23026352 Take 50 mg [facility] (APRESOLINE 7-[id number] mouth 3 [address] ) 50 MG [...] area in groin) hydrALAZINE 0 Yes 50mg Q.91425990 Take 50 mg [facility] (APRESOLINE 7-[id number] mouth [address] ) 50 MG [...] (affected area in groin) hydrALAZINE Yes 50mg Q.[id number] Take 50 mg [facility] (APRESOLINE 7-19 [id number] [address] mouth 3 [address] ) 50 MG [...] (affected area in groin) hydrALAZINE Yes 50mg Q.[id number] Take 50 mg [facility] (APRESOLINE 7-19 [id number] [address] mouth [address] ) 50 MG [...] area in groin) hydrALAZINE 0 Yes 50mg Q.82737555 Take 50 mg [facility] (APRESOLINE 7-19 [id number] mouth [address] ) 50 MG [...] (affected area in groin) hydrALAZINE Yes 50mg Q.72777881 Take 50 mg [facility] (APRESOLINE 7-[id number] mouth [address] ) 50 MG [...] (affected area in groin) hydrALAZINE Yes 50mg Q.82296990 Take 50 mg [facility] (APRESOLINE 7-[id number] mouth [address] ) 50 MG [...] area in groin) hydrALAZINE 2020-0 Yes 50mg Q.01976162 Take 50 mg [facility] (APRESOLINE 7-[address] [id number] [address] mouth [address] ) 50 MG [...] area in groin) hydrALAZINE 0 Yes 50mg Q.71532565 Take 50 mg [facility] (APRESOLINE 7-19 [id number] [address] mouth [address] ) 50 MG [...] (affected area in groin) hydrALAZINE Yes 50mg Q.21218935 Take 50 mg [facility] (APRESOLINE 7-[id number] mouth [address] ) 50 MG [...] QD Take 10 mg M [facility] (NORVASC) [address] 10 mg 10:51: daily. [...] area in groin) hydrALAZINE 0 Yes 50mg Q.08155333 Take 50 mg [facility] (APRESOLINE -19 [id number] mouth [address] ) 50 MG [...] area in groin) hydrALAZINE 0 Yes 50mg Q.27536716 Take 50 mg [facility] (APRESOLINE 7-[id number] mouth 3 [address] ) 50 MG [...] (affected area in groin) hydrALAZINE Yes 50mg Q.49332848 Take 50 mg [facility] (APRESOLINE 7-19 [id number] mouth 3 [address] ) 50 MG [...] (affected area in groin) hydrALAZINE Yes 50mg Q.07464456 Take 50 mg [facility] (APRESOLINE 7-19 [id number] [address] mouth 3 [address] ) 50 MG [...] area in groin) hydrALAZINE 0 Yes 50mg Q.26702689 Take 50 mg [facility] (APRESOLINE 7-19 [id number] mouth 3 [address] ) 50 MG [...] (affected area in groin) hydrALAZINE Yes 50mg Q.52856009 Take 50 mg [facility] (APRESOLINE 7-[id number] mouth 3 [address] ) 50 MG [...] (affected area in groin) hydrALAZINE Yes 50mg Q.12093789 Take 50 mg [facility] (APRESOLINE 7-[id number] mouth [address] ) 50 MG [...] area in groin) hydrALAZINE 2020-0 Yes 50mg Q.63880648 Take 50 mg [facility] (APRESOLINE 7-[id number] mouth [address] ) 50 MG [...] area in groin) hydrALAZINE 0 Yes 50mg Q.11419806 Take 50 mg [facility] (APRESOLINE 7-[id number] mouth [address] ) 50 MG [...] (affected area in groin) hydrALAZINE Yes 50mg Q.55732869 Take 50 mg [facility] (APRESOLINE 7-[id number] mouth [address] ) 50 MG [...] (affected area in groin) hydrALAZINE Yes 50mg Q.34319261 Take 50 mg [facility] (APRESOLINE 7-[id number] mouth [address] ) 50 MG [...] area in groin) hydrALAZINE 0 Yes 50mg Q.26508285 Take 50 mg [facility] (APRESOLINE 7-[id number] mouth 3 [address] ) 50 MG [...] (affected area in groin) hydrALAZINE Yes 50mg Q.43228365 Take 50 mg [facility] (APRESOLINE 7-[id number] mouth [address] ) 50 MG [...] area in groin) hydrALAZINE 0 Yes 50mg Q.62461368 Take 50 mg [facility] (APRESOLINE 7-[id number] mouth [address] ) 50 MG [...] area in groin) hydrALAZINE 0 Yes 50mg Q.71515188 Take 50 mg [facility] (APRESOLINE 7-19 [id number] [address] mouth 3 [address] ) 50 MG [...] (affected area in groin) hydrALAZINE Yes 50mg Q.67619277 Take 50 mg [facility] (APRESOLINE 7-[id number] mouth [address] ) 50 MG [...] area in groin) hydrALAZINE 0 Yes 50mg Q.79302576 Take 50 mg [facility] (APRESOLINE 7-[id number] mouth [address] ) 50 MG [...] area in groin) hydrALAZINE 0 Yes 50mg Q.94951924 Take 50 mg [facility] (APRESOLINE 7-[id number] mouth [address] ) 50 MG [...] (affected area in groin) hydrALAZINE Yes 50mg Q.06256056 Take 50 mg [facility] (APRESOLINE 7-[id number] mouth [address] ) 50 MG [...] (affected area in groin) hydrALAZINE Yes 50mg Q.49677255 Take 50 mg [facility] (APRESOLINE 7-[id number] mouth [address] ) 50 MG [...] area in groin) hydrALAZINE 0 Yes 50mg Q.94887790 Take 50 mg [facility] (APRESOLINE 7-[id number] mouth [address] ) 50 MG [...] (affected area in groin) hydrALAZINE Yes 50mg Q.[id number] Take 50 mg [facility] (APRESOLINE 7-[id number] mouth [address] ) 50 MG [...] (affected area in groin) hydrALAZINE Yes 50mg Q.12339160 Take 50 mg [facility] (APRESOLINE 7-[id number] mouth [address] ) 50 MG [...] (affected area in groin) hydrALAZINE Yes 50mg Q.49498984 Take 50 mg [facility] (APRESOLINE 7-[id number] mouth [address] ) 50 MG [...] area in groin) hydrALAZINE 0 Yes 50mg Q.26525440 Take 50 mg [facility] (APRESOLINE 7-[id number] mouth [address] ) 50 MG [...] (affected area in groin) hydrALAZINE Yes 50mg Q.72719634 Take 50 mg [facility] (APRESOLINE 7-[id number] mouth [address] ) 50 MG [...] area in groin) hydrALAZINE 0 Yes 50mg Q.24785749 Take 50 mg [facility] (APRESOLINE 7-[id number] mouth [address] ) 50 MG [...] area in groin) hydrALAZINE 0 Yes 50mg Q.11287172 Take 50 mg [facility] (APRESOLINE 7-[id number] mouth [address] ) 50 MG [...] (affected area in groin) hydrALAZINE Yes 50mg Q.[id number] Take 50 mg [facility] (APRESOLINE 7-[id number] mouth [address] ) 50 MG [...] (affected area in groin) hydrALAZINE Yes 50mg Q.[id number] Take 50 mg [facility] (APRESOLINE 7-[id number] mouth [address] ) 50 MG [...] area in groin) hydrALAZINE 0 Yes 50mg Q.47895877 Take 50 mg [facility] (APRESOLINE 7-[id number] mouth [address] ) 50 MG [...] area in groin) hydrALAZINE 0 Yes 50mg Q.81834420 Take 50 mg [facility] (APRESOLINE 7-[id number] mouth [address] ) 50 MG [...] (affected area in groin) hydrALAZINE Yes 50mg Q.[id number] Take 50 mg [facility] (APRESOLINE 7-[id number] mouth [address] ) 50 MG [...] area in groin) hydrALAZINE 0 Yes 50mg Q.[id number] Take 50 mg [facility] (APRESOLINE 7-[id number] mouth [address] ) 50 MG [...] daily. [facility] 25 l nystatin-tr Yes [id number] Apply to [facility] hospital[facility] 7- area(s) 3 ity of cream 00:00: (three) [place] 00 times Medical daily. Branch nystatin-tr 2020-0 Yes [id number] Apply to [facility] iainolone 7- area(s) 3 ity of cream 00:00: (three) [place] 00 times Medical daily. Branch nystatin-tr 2020-0 Yes [id number] Apply to [facility] iamcinolone 7-06 area(s) 3 ity of cream 00:00: (three) [place] 00 times Medical daily. Branch nystatin-tr 2021-0 Yes [id number] Apply to [facility] iamcinolone 7-06 area(s) 3 ity of cream 00:00: (three) [place] 00 times Medical daily. Branch nystatin-tr 2021-0 Yes [id number] Apply to [facility] iamcinolone 7-06 area(s) 3 ity of cream 00:00: (three) [place] 00 times Medical daily. Branch nystatin-tr 2021-0 Yes [id number] Apply to [facility] iamcinolone 7-06 area(s) 3 ity of cream 00:00: (three) [place] 00 times Medical daily. Branch nystatin-tr 2021-0 Yes [id number] Apply to [facility] iamcinolone 7-06 area(s) 3 ity of cream 00:00: (three) [place] 00 times Medical daily. Branch nystatin-tr 2021-0 Yes [id number] Apply to [facility] iamcinolone 7-06 area(s) 3 ity of cream 00:00: (three) [place] 00 times Medical daily. Branch nystatin-tr 2021-0 Yes [id number] Apply to [facility] iamcinolone 7-06 area(s) 3 ity of cream 00:00: (three) [place] 00 times Medical daily. Branch nystatin-tr 2021-0 Yes [id number] Apply to [facility] iamcinolone 7-06 area(s) 3 ity of cream 00:00: (three) [place] 00 times Medical daily. Branch nystatin-tr 2021-0 Yes [id number] Apply to [facility] iamcinolone 7-06 area(s) 3 ity of cream 00:00: (three) [place] 00 times Medical daily. Branch nystatin-tr 2021-0 Yes [id number] Apply to [facility] iamcinolone 7-06 area(s) 3 ity of cream 00:00: (three) [place] 00 times Medical daily. Branch nystatin-tr 2021-0 Yes [id number] Apply to [facility] iamcinolone 7-06 area(s) 3 ity of cream 00:00: (three) [place] 00 times Medical daily. Branch nystatin-tr 2021-0 Yes [id number] Apply to [facility] iamcinolone 7-06 area(s) 3 ity of cream 00:00: (three) [place] 00 times Medical daily. Branch nystatin-tr 2021-0 Yes [id number] Apply to [facility] iamcinolone 7-06 area(s) 3 ity of cream 00:00: (three) [place] 00 times Medical daily. Branch nystatin-tr 2021-0 Yes [id number] Apply to [facility] iamcinolone 7-06 area(s) 3 ity of cream 00:00: (three) [place] 00 times Medical daily. Branch nystatin-tr 2021-0 Yes [id number] Apply to [facility] iamcinolone 7-06 area(s) 3 ity of cream 00:00: (three) [place] 00 times Medical daily. Branch nystatin-tr 2021-0 Yes [id number] Apply to [facility] iamcinolone 7-06 area(s) 3 ity of cream 00:00: (three) [place] 00 times Medical daily. Branch nystatin-tr 2021-0 Yes [id number] Apply to [facility] iamcinolone 7-06 area(s) 3 ity of cream 00:00: (three) [place] 00 times Medical daily. Branch nystatin-tr 2021-0 Yes [id number] Apply to [facility] iamcinolone 7-06 area(s) 3 ity of cream 00:00: (three) [place] 00 times Medical daily. Branch nystatin-tr 2021-0 Yes [id number] Apply to [facility] iamcinolone 7-06 area(s) 3 ity of cream 00:00: (three) [place] 00 times Medical daily. Branch budesonide- 2020-0 2021- No 1{puff} QD Inhale 1 [facility] formoteroL 6-25 06-[address] (SYMBICORT) 14:37: 00:00 morning. H ospita 160-4.5 02 :00 l mcg/actuati on inhaler hydrALAZINE 0 Yes [id number] 50mg Q.[id number] Take 1 [facility] (Apresoline 6-11 [id number] tablet (50 Health ) 50 MG 00:00: 3D mg total) tablet 00 by mouth 3 (three) times a day. hydrALAZINE 0 Yes [id number] 50mg Q.[id number] Take 1 [facility] (Apresoline 6-11 [id number] tablet (50 Health ) 50 MG 00:00: 3D mg total) tablet 00 by mouth 3 (three) times a day. Breztri Yes [facility] Aerosphere 6-09 Health 160-9-4.8 [...] % 00:00: ointment 00 nystatin 2020- No [id number] Q.25D Take 5 mL [facility] (MYCOSTATIN 10-06 [...] ia 4-10 (Same as: l 14:00: Norvasc) [place] 00 emtricitabi No Notes: Caesar lisa ne [...] ia 4-10 (Same as: l 14:00: Norvasc) [place] emtricitabi No Notes: Caesar lisa ne 200 MG / 4-10 (Same as: l tenofovir 14:00: Descovy) Herm ariel alafenamide 00 Non-formul 25 MG Oral nancy Tablet [Descovy] Sertraline No Notes: Memor ia 4-10 (Same as: l 14:00: Zoloft) Marty Sertraline No Notes: Memor ia 4-10 (Same as: l 14:00: Zoloft) [place] 00 pantoprazol No Notes: Caesar lisa e [...] e 4-10 Tablet l 14:00: should not [place] 00 be chewed or crushed. (Same as: [...] e 4-10 Tablet l 14:00: should not [place] 00 be chewed or crushed. (Same as: Protonix) Amiodarone No Notes: Memor ia 4-10 (Same as: l 14:00: Cordarone) Amlodipine No Notes: Memor ia 4-10 (Same as: l 14:00: Norvasc) [place] 00 emtricitabi No Notes: Caesar lisa ne 200 MG / 4-10 (Same as: l tenofovir 14:00: Descovy) Herm ariel alafenamide 00 Non-formul 25 MG Oral nancy Tablet [Descovy] Sertraline No Notes: Memor ia 4-10 (Same as: l 14:00: Zoloft) [place] 00 pantoprazol No Notes: Caesar lisa e 4-10 Tablet l 14:00: should not Marty 00 be chewed or crushed. (Same as: Protonix) Amiodarone No Notes: Memor ia 4-10 (Same as: l 14:00: Cordarone) Amlodipine No Notes: Memor ia 4-10 (Same as: l 14:00: Norvasc) emtricitabi No Notes: Ceasar lisa ne 200 MG / 4-10 (Same as: l tenofovir 14:00: Descovy) Herm alafenamide 00 Non-formul 25 MG Oral nancy Tablet [Descovy] Sertraline No Notes: Memor ia 4-10 (Same as: l 14:00: Zoloft) pantoprazol No Notes: Caesar lisa e 4-10 Tablet l 14:00: should not [place] 00 be chewed or crushed. (Same as: [...] M emoria 4-10 interfere l 02:00: w/enteral [place] 00 feeds - Take 1 hr before [...] Memoria 4-10 Same as: l 02:00: Eliquis [place] Hydralazine No Notes: Caesar lisa Hydrochlori 4-10 [...] 0.9% 4-10 (Same as: l 02:00: BD [place] 00 Posiflush) Eliquis No Notes: Memoria 4-10 Same as: l 02:00: Eliquis [place] Hydralazine No Notes: Caesar lisa Hydrochlori 4-10 (Same as: l de 50 MG 02:00: Apresoline Her mitchell Oral Tablet 00 ) May interfere w/enteral feedings Take With Food Sucralfate No Notes: May M emoria 4-10 interfere l 02:00: w/enteral [place] 00 feeds - Take 1 hr before or 2 hr after antacids, dairy pdt, meals & minerals - On empty stomach. For patients unable to swallow tablet, dissolve in 10mL - 30mL of water or juice and stir before giving. (Same As: Carafate) Saline No Notes: Memoria Flush 0.9% 4-10 (Same as: l 02:00: BD [place] Posiflush) Eliquis No Notes: Memoria 4-10 Same as: l 02:00: Eliquis [place] Hydralazine No Notes: Caesar lisa Hydrochlori 4-10 (Same as: l de 50 MG 02:00: Apresoline Her mitchell Oral Tablet 00 ) May interfere w/enteral feedings Take With Food Sucralfate No Notes: May M emoria 4-10 interfere l 02:00: w/enteral [place] 00 feeds - Take 1 hr before or 2 hr after antacids, dairy pdt, meals & minerals - On empty stomach. For patients unable to swallow tablet, dissolve in 10mL - 30mL of water or juice and stir before giving. (Same As: Carafate) Saline No Notes: Memoria Flush 0.9% 4-10 (Same as: l 02:00: BD [place] Posiflush) Eliquis No Notes: Memoria 4-10 Same as: l 02:00: Eliquis Marty 00 Hydralazine No Notes: Caesar lisa Hydrochlori 4-10 (Same as: l de 50 MG 02:00: Apresoline Her mitchell Oral Tablet 00 ) May interfere w/enteral feedings Take With Food Sucralfate No Notes: May M emoria 4-10 interfere l 02:00: w/enteral [place] 00 feeds - Take 1 hr before or 2 hr after antacids, dairy pdt, meals & minerals - On empty stomach. For patients unable to swallow tablet, dissolve in 10mL - 30mL of water or juice and stir before giving. (Same As: Carafate) Saline No Notes: Memoria Flush 0.9% 4-10 (Same as: l 02:00: BD [place] Posiflush) Eliquis No Notes: Memoria 4-10 Same [...] not exceed l #3 00:12: 4gm/day of [place] acetaminop hen. (Same as: Tylenol with Codeine [...] not exceed l #3 00:12: 4gm/day of [place] 00 acetaminop hen. (Same as: Tylenol with Codeine # 3) Buspirone 0 No Notes: Memori a 08-29 (Same As: l 22:00: BuSpar) Lisinopril 0 No 40 mg, 1 Mem oria 4-09 tab, l 22:00: Route: PO, [place] 00 Drug form: TAB, BID, Dosing Weight 97.273, kg, Start date: 08/29/20 17:00:00 CDT, Duration: 30 day, Stop date: 09/28/20 9:00:00 CDT metoprolol No 100 mg, 1 Me moria tartrate - tab, l 22:00: Route: PO, [place] 00 Drug form: TAB, BID, Dosing Weight [...] oria 4-09 tab, l 22:00: Route: PO, [place] 00 Drug form: TAB, BID, Dosing Weight 97.273, kg, Start date: 08/29/20 17:00:00 CDT, Duration: 30 day, Stop date: 09/28/20 9:00:00 CDT metoprolol 1-0 No 100 mg, 1 Me moria tartrate 4-09 tab, l 22:00: Route: PO, [place] 00 Drug form: TAB, BID, Dosing Weight [...] 0 Buspirone 1-0 No Notes: Memori a 4-09 (Same As: [...] l Tablet 22:00: Route: [facility], [facility]ylar [facility] Drug form: TAB, BID, Dosing Weight 97.273, kg, Start date: 08/29/20 17:00:00 CDT, Duration: 30 day, Stop date: 09/28/20 9:00:00 CDT, 0 Buspirone 2020-0 No Notes: Memori a 08-29 (Same As: l 22:00: BuSpar) Lisinopril 2020-0 No 40 mg, 1 Mem oria - tab, l 22:00: Route: PO, [place] 00 Drug form: TAB, BID, Dosing Weight [...] oria 4-09 tab, l 22:00: Route: PO, [place] 00 Drug form: TAB, BID, Dosing Weight 97.273, kg, Start date: 08/29/20 17:00:00 CDT, Duration: 30 day, Stop date: 09/28/20 9:00:00 CDT metoprolol 2020-0 No 100 mg, 1 Me moria tartrate 4- tab, l 22:00: Route: PO, [place] 00 Drug form: TAB, BID, Dosing Weight [...] Notes: Memoria 4-09 (Same l 17:07: as:MORPhin [place] 00 e Sulfate) Morphine No Notes: Memoria 4-09 (Same l 17:07: as:MORPhin [place] 00 e Sulfate) Morphine No Notes: Memoria 4-09 (Same l 17:07: as:MORPhin [place] 00 e Sulfate) Morphine No Notes: Memoria 4-09 (Same l 17:07: as:MORPhin [place] 00 e Sulfate) Morphine No Notes: Memoria 4-09 (Same l 17:07: as:MORPhin [place] 00 e Sulfate) Morphine No Notes: Memoria 4-09 (Same l 17:07: as:MORPhin [place] 00 e Sulfate) buPROPion No 150 mg, [...] 0 coated Refill(s), tablet [facility]: [facility], 162.56, cm, 08/29/20 5:30:00 CDT, Height, 97.273, kg, 08/29/20 5:30:00 CDT, Weight pantoprazol 2021-0 Yes 40 mg = 1 M emoria e 40 mg 4-09 tab, PO, l oral 15:27: Daily, # Marty enteric 00 30 tab, 0 coated Refill(s), tablet Pharmacy: [facility] 149, 162.56, cm, 08/29/20 5:30:00 CDT, Height, 97.273, kg, 08/29/20 5:30:00 CDT, Weight pantoprazol 2021-0 Yes 40 mg = 1 M emoria e 40 mg 4-09 tab, PO, l oral 15:27: Daily, # [place] enteric 00 30 tab, 0 coated Refill(s), tablet Pharmacy: [facility] [place], 162.56, cm, 08/29/20 5:30:00 CDT, Height, 97.273, kg, 08/29/20 5:30:00 CDT, Weight pantoprazol 2021-0 Yes 40 mg = 1 M emoria e 40 mg 4-09 tab, PO, l oral 15:27: Daily, # Marty enteric 00 30 tab, 0 coated Refill(s), tablet Pharmacy: [facility] 149, 162.56, cm, 08/29/20 5:30:00 CDT, Height, 97.273, kg, 08/29/20 5:30:00 CDT, Weight pantoprazol 2021-0 Yes 40 mg = 1 M emoria e 40 mg 4-09 tab, PO, l oral 15:27: Daily, # [place] enteric 00 30 tab, 0 coated Refill(s), tablet Pharmacy: [facility] 149, 162.56, cm, 08/29/20 5:30:00 CDT, Height, 97.273, kg, 08/29/20 5:30:00 CDT, Weight pantoprazol 2021-0 Yes 40 mg = 1 M emoria e 40 mg 4-09 tab, PO, l oral 15:27: Daily, # [place] enteric 00 30 tab, 0 coated Refill(s), tablet Pharmacy: [facility] 149, 162.56, cm, 08/29/20 5:30:00 CDT, Height, 97.273, kg, 08/29/20 5:30:00 CDT, Weight pantoprazol 1-0 Yes 40 mg = 1 M emoria e 40 mg 4-09 tab, PO, l oral 15:27: Daily, # [place] enteric 00 30 tab, 0 coated Refill(s), tablet Pharmacy: [facility] 149, 162.56, cm, 08/29/20 5:30:00 CDT, Height, 97.273, kg, 08/29/20 5:30:00 CDT, Weight pantoprazol 1-0 No 40 mg = 1 M emoria e 40 mg 4-09 tab, PO, l oral 15:26: Daily, # [place] enteric 00 30 tab, 0 coated Refill(s) tablet sucralfate 2020-0 Yes 1 gm = 1 Mem oria 1 g oral 4-09 tab, PO, l tablet 15:26: Q12H, # 28 Skylar nn 00 tab, 0 Refill(s), Pharmacy: [facility] 149, 162.56, cm, [...] nn 00 tab, 0 Refill(s), Pharmacy: [facility] 149, 162.56, cm, 08/29/20 5:30:00 CDT, Height, 97.273, kg, 08/29/20 5:30:00 CDT, Weight pantoprazol 1-0 No 40 mg = 1 M emoria e 40 mg 4-09 tab, PO, l oral 15:26: Daily, # [place] enteric 00 30 tab, 0 coated Refill(s) tablet sucralfate 2020-0 Yes 1 gm = 1 Mem oria 1 g oral 4-09 tab, PO, l tablet 15:26: Q12H, # 28 Skylar nn 00 tab, 0 Refill(s), Pharmacy: [facility] 149, 162.56, cm, [...] Skylar nn 00 tab, 0 Refill(s), Pharmacy: [place] [address], 162.56, cm, 08/29/20 5:30:00 CDT, Height, 97.273, kg, 08/29/20 5:30:00 CDT, Weight pantoprazol 2020-0 No 40 mg = 1 M emoria e 40 mg 4-09 tab, PO, l oral 15:26: Daily, # [place] enteric 00 30 tab, 0 coated Refill(s) tablet sucralfate 2020-0 Yes 1 gm = 1 Mem oria 1 g oral 4-09 tab, PO, l tablet 15:26: Q12H, # 28 Skylar nn 00 tab, 0 Refill(s), Pharmacy: [place] [address], 162.56, cm, 08/29/20 5:30:00 CDT, Height, 97.273, [...] nn 00 tab, 0 Refill(s), Pharmacy: [facility] 149, 162.56, cm, [...] nn 00 tab, 0 Refill(s), Pharmacy: [facility] 149, 162.56, cm, [...] 0.9% 4-09 (Same as: l 15:25: BD [place] 00 Posiflush) Saline No Notes: Memoria Flush 0.9% 4-09 (Same as: l 15:25: BD [place] 00 Posiflush) Lorazepam No Notes: Memori a 4-09 (Same as: l 15:25: Ativan) Marty Lorazepam No Notes: Memori a 4-09 (Same as: l 15:25: Ativan) Hollis Saline No Notes: Memoria Flush 0.9% 4-09 (Same as: l 15:25: BD Marty Posiflush) Lorazepam No Notes: Memori a 4-09 (Same as: l 15:25: Ativan) Marty 00 Saline No Notes: Memoria Flush 0.9% 4-09 (Same as: l 15:25: BD Hollis 00 Posiflush) Lorazepam No Notes: Memori a 4-09 (Same as: l 15:25: Ativan) Hollis 00 Saline No Notes: Memoria Flush 0.9% [...] Drug form: l mg + 15:00: INJ, Hollis 00 Dosing Weight 97.3, kg, Start date: [...] 08-29 Drug form: l 14:18: INJ, ONCE, Hollis 00 Stop date: 08/29/20 9:18:00 CDT heparin 0 No Route: IV, Caesar lisa (ANES) 08-29 Drug form: l 14:18: INJ, ONCE, Hollis 00 Stop date: 08/29/20 9:18:00 CDT heparin [...] Memori a 08-29 Route: l 14:01: IVP, Hollis 00 Q5Min, Dosing Weight 97.273, kg, PRN Elevated BP, Start date: 08/29/20 9:01:00 CDT, Duration: 5 doses or times, Stop date: Limited # of times Acetaminoph 0 No 1,000 mg, M emoria en 08-29 Route: PO, l 14:01: Drug form: Hollis 00 TAB, ONCE, Dosing Weight 97.273, kg, [...] oria ne 08-29 Route: l 14:01: IVP, Hollis 00 Q5Min, Dosing Weight 97.273, kg, PRN Pain Score 7-10, Start date: 08/29/20 9:01:00 CDT, Duration: 4 doses or times, Stop date: Limited # of times Flumazenil 1-0 No 0.2 mg, Caesar lisa 08-29 Route: l 14:01: IVP, PRN, Hollis 00 Dosing Weight 97.273, kg, PRN Benzodiaze pine Reversal, Initial dose, Start date: 08/29/20 9:01:00 CDT, Duration: 30 day, Stop date: 09/28/20 9:00:00 CDT Naloxone 1-0 No 0.4 mg, Memori a 08-29 Route: l 14:01: IVP, Hollis 00 Q2MIN, Dosing Weight 97.273, kg, PRN [...] Memori a 08-29 Route: l 14:01: IVP, Hollis 00 Q5Min, Dosing Weight 97.273, kg, PRN [...] oria ne 08-29 Route: l 14:01: IVP, Hollis 00 Q5Min, Dosing Weight 97.273, kg, PRN [...] Memori a 08-29 Route: l 14:01: IVP, Hollis 00 Q2MIN, Dosing Weight 97.273, kg, PRN [...] Memori a 08-29 Route: l 14:01: IVP, Hollis 00 Q5Min, Dosing Weight 97.273, kg, PRN Elevated BP, Start date: 08/29/20 9:01:00 CDT, Duration: 5 doses or times, Stop date: Limited # of times Acetaminoph 2021-0 No 1,000 mg, M emoria en 08-29 Route: PO, l 14:01: Drug form: Hollis 00 TAB, ONCE, Dosing Weight 97.273, kg, [...] oria ne 08-29 Route: l 14:01: IVP, Hollis 00 Q5Min, Dosing Weight 97.273, kg, PRN [...] Memori a 08-29 Route: l 14:01: IVP, Hollis 00 Q5Min, Dosing Weight 97.273, kg, PRN [...] oria ne 08-29 Route: l 14:01: IVP, Hollis 00 Q5Min, Dosing Weight 97.273, kg, PRN [...] 08-29 Route: PO, l 14:01: Drug form: Hollis 00 TAB, ONCE, Dosing Weight 97.273, kg, [...] ia 08-29 Route: l 14:01: IVP, ONCE, Hollis 00 Dosing Weight 97.273, kg, PRN Nausea & Vomiting, Start date: 08/29/20 9:01:00 CDT Labetalol 2020-0 No 10 mg, Memori a 08-29 Route: l 14:01: IVP, Hollis 00 Q5Min, Dosing Weight 97.273, kg, PRN [...] oria ne 08-29 Route: l 14:01: IVP, [place]is 00 Q5Min, Dosing Weight 97.273, kg, PRN Pain Score 7-10, Start date: 08/29/20 9:01:00 CDT, Duration: 4 doses or times, Stop date: Limited # of times Flumazenil 2020-0 No 0.2 mg, Caesar lisa 08-29 Route: l 14:01: IVP, PRN, Hollis 00 Dosing Weight 97.273, kg, PRN Benzodiaze [...] ia 08-29 Route: l 14:01: IVP, ONCE, Hollis 00 Dosing Weight 97.273, kg, PRN Nausea [...] 08-29 Route: PO, l 14:01: Drug form: Hollis 00 TAB, ONCE, Dosing Weight 97.273, kg, [...] oria ne 08-29 Route: l 14:01: IVP, Hollis 00 Q5Min, Dosing Weight 97.273, kg, PRN Pain Score 7-10, Start date: 08/29/20 9:01:00 CDT, Duration: 4 doses or times, Stop date: Limited # of times Flumazenil 2020-0 No 0.2 mg, Caesar lisa 08-29 Route: l 14:01: IVP, PRN, Hollis 00 Dosing Weight 97.273, kg, PRN Benzodiaze [...] ONCE, Stop date: 08/29/20 8:42:00 CDT norepinephr 2021-0 No Route: IV, Memoria ine (ANES) 08-29 Drug form: l 10 13:15: INJ, Start Hollis microgram 00 date: 08/29/20 8:15:00 CDT, Stop date: 08/29/20 9:15:00 CDT norepinephr 2020-0 No Route: IV, Memoria ine (ANES) 08-29 Drug form: l 10 13:15: INJ, Start Hollis microgram date: 08/29/20 8:15:00 CDT, Stop date: 08/29/20 9:15:00 CDT norepinephr 2020-0 No Route: IV, Memoria ine (ANES) 08-29 Drug form: l 10 13:15: INJ, Start Hollis microgram date: 08/29/20 8:15:00 CDT, Stop date: 08/29/20 9:15:00 CDT norepinephr 2020-0 No Route: IV, Memoria ine (ANES) 08-29 Drug form: l 10 13:15: INJ, Start Hollis microgram date: 08/29/20 8:15:00 CDT, Stop date: 08/29/20 9:15:00 CDT norepinephr 2020-0 No Route: IV, Memoria ine (ANES) 08-29 Drug form: l 10 13:15: INJ, Start Marty microgram date: 08/29/20 8:15:00 CDT, Stop date: 08/29/20 9:15:00 CDT norepinephr 2020-0 No Route: IV, Memoria ine (ANES) 08-29 Drug form: l 10 13:15: INJ, Start Hollis microgram 00 date: 08/29/20 8:15:00 CDT, Stop date: 08/29/20 9:15:00 CDT norepinephr 2020-0 No Route: IV, Memoria ine (ANES) 08-29 Drug form: l 10 13:15: INJ, Start Hollis microgram 00 date: 08/29/20 8:15:00 CDT, Stop date: 08/29/20 9:15:00 CDT Sodium 2020-0 No Route: IV, Memor ia Chloride 08-29 Total l 0.9% IV 12:30: Volume: Hollis (ANES) 1000 00 1,000, mL Start date: 08/29/20 7:30:00 CDT, Stop date: 08/29/20 8:30:00 CDT Sodium 2021-0 No Route: IV, Memor ia Chloride 4-09 Total l 0.9% IV 12:30: Volume: Hollis (ANES) 1000 00 1,000, mL Start date: 08/29/20 7:30:00 CDT, Stop date: 08/29/20 8:30:00 CDT Sodium 2021-0 No Route: IV, Memor ia Chloride 4-09 Total l 0.9% IV 12:30: Volume: Hollis (ANES) 1000 00 1,000, mL Start date: 08/29/20 7:30:00 CDT, Stop date: 08/29/20 8:30:00 CDT Sodium 2021-0 No Route: IV, Memor ia Chloride 4-09 Total l 0.9% IV 12:30: Volume: Marty (ANES) 1000 00 1,000, mL Start date: 08/29/20 7:30:00 CDT, Stop date: 08/29/20 8:30:00 CDT Sodium 202-0 No Route: IV, Memor ia Chloride 4-09 Total l 0.9% IV 12:30: Volume: Hollis (ANES) 1000 00 1,000, mL Start date: 08/29/20 7:30:00 CDT, Stop date: 08/29/20 8:30:00 CDT Sodium 2021-0 No Route: IV, Memor ia Chloride 4-09 Total l 0.9% IV 12:30: Volume: Hollis (ANES) 1000 00 1,000, mL Start date: [...] PO, l Hydrochlori 11:42: Q24H, # 30 Hollis de 150 MG 00 tab, 0 Extended [...] PO, l Hydrochlori 11:42: Q24H, # 30 Hollis de 150 MG 00 tab, 0 Extended [...] 08-29 Q12H, tab, l Tablet 11:41: 0 Hollis [Eliquis] 00 Refill(s), For Atrial Fibrilatio n [...] - Q12H, tab, l Tablet 11:41: 0 Hollis [Eliquis] 00 Refill(s), For Atrial Fibrilatio n [...] tab, PO, l tablet 11:38: Daily, # Hollis 00 90 tab, 3 Refill(s) AMIODarone Yes [...] tab, PO, l tablet 11:38: Daily, # Hollis 00 90 tab, 3 Refill(s) AMIODarone 0 [...] tablet 08-16 00:00: [facility] l predniSONE 2021-0 Yes [place] (Deltasone) [facility] 20 MG [...] [place] PFIZER COVID-19 2020-07-23 Completed [facility] MRNA VACCINATION 00:00:00 [facility] PFIZER COVID-19 2020-07-23 Completed [facility] MRNA VACCINATION 00:00:00 [facility] PFIZER COVID-19 2020-07-23 Completed [facility] MRNA VACCINATION 00:00:00 [facility] PFIZER COVID-19 2020-07-23 Completed [facility] MRNA VACCINATION 00:00:00 [facility] PFIZER COVID-19 2020-07-23 Completed [facility] MRNA VACCINATION 00:00:00 [facility] PFIZER COVID-19 2020-07-23 Completed [facility] MRNA VACCINATION 00:00:00 [facility] PFIZER COVID-19 2020-07-23 Completed [facility] MRNA VACCINATION 00:00:00 [facility] PFIZER COVID-19 2020-07-23 Completed [facility] MRNA VACCINATION 00:00:00 [facility] PFIZER COVID-19 2020-07-23 Completed [facility] MRNA VACCINATION 00:00:00 [facility] PFIZER COVID-19 2020-07-23 Completed [facility] MRNA VACCINATION 00:00:00 [facility] PFIZER COVID-19 2020-07-23 Completed [facility] MRNA VACCINATION 00:00:00 [facility] PFIZER COVID-19 2020-07-23 Completed [facility] MRNA VACCINATION 00:00:00 [facility] PFIZER COVID-19 2020-07-23 Completed [facility] MRNA VACCINATION 00:00:00 [facility] PFIZER COVID-19 2020-07-23 Completed [facility] MRNA VACCINATION 00:00:00 [facility] PFIZER COVID-19 2020-07-23 Completed [facility] MRNA VACCINATION 00:00:00 [facility] PFIZER COVID-19 2020-07-23 Completed [facility] MRNA VACCINATION 00:00:00 [facility] PFIZER COVID-19 2020-07-23 Completed [facility] MRNA VACCINATION 00:00:00 [facility] PFIZER COVID-19 2020-07-23 Completed [facility] MRNA VACCINATION 00:00:00 [facility] PFIZER COVID-19 2020-07-23 Completed [facility] MRNA VACCINATION 00:00:00 [facility] PFIZER COVID-19 2020-07-23 Completed [facility] MRNA VACCINATION 00:00:00 [facility] PFIZER COVID-19 2020-07-23 Completed [facility] MRNA VACCINATION 00:00:00 [facility] PFIZER COVID-19 2020-07-23 Completed [facility] MRNA VACCINATION 00:00:00 [facility] PFIZER COVID-19 2020-07-23 Completed [facility] MRNA VACCINATION 00:00:00 [facility] PFIZER COVID-19 2020-07-23 Completed [facility] MRNA VACCINATION 00:00:00 [facility] PFIZER COVID-19 2020-07-23 Completed [facility] MRNA VACCINATION 00:00:00 [facility] PFIZER COVID-19 2020-07-23 Completed [facility] MRNA VACCINATION 00:00:00 [facility] PFIZER COVID-19 2020-07-23 Completed [facility] MRNA VACCINATION 00:00:00 [facility] PFIZER COVID-19 2020-07-23 Completed [facility] MRNA VACCINATION 00:00:00 [facility] PFIZER COVID-19 2020-07-23 Completed [facility] MRNA VACCINATION 00:00:00 [facility] PFIZER COVID-19 2020-07-23 Completed [facility] MRNA VACCINATION 00:00:00 [facility] PFIZER COVID-19 2020-07-23 Completed [facility] MRNA VACCINATION 00:00:00 [facility] PFIZER COVID-19 2020-07-23 Completed [facility] MRNA VACCINATION 00:00:00 [facility] PFIZER COVID-19 2020-07-23 Completed [facility] MRNA VACCINATION 00:00:00 [facility] PFIZER COVID-19 2020-07-23 Completed [facility] MRNA VACCINATION 00:00:00 [facility] PFIZER COVID-19 2020-07-23 Completed [facility] MRNA VACCINATION 00:00:00 [facility] PFIZER COVID-19 2020-07-23 Completed [facility] MRNA VACCINATION 00:00:00 [facility] PFIZER COVID-19 2020-07-23 Completed [facility] MRNA VACCINATION 00:00:00 [facility] PFIZER COVID-19 2020-07-23 Completed [facility] MRNA VACCINATION 00:00:00 [facility] PFIZER COVID-19 2020-07-23 Completed [facility] MRNA VACCINATION 00:00:00 [facility] PFIZER COVID-19 2020-07-23 Completed [facility] MRNA VACCINATION 00:00:00 [facility] PFIZER COVID-19 2020-07-23 Completed [facility] MRNA VACCINATION 00:00:00 [facility] PFIZER COVID-19 2020-07-23 Completed [facility] MRNA VACCINATION 00:00:00 [facility] PFIZER COVID-19 2020-07-23 Completed [facility] MRNA VACCINATION 00:00:00 [facility] PFIZER COVID-19 2020-07-23 Completed [facility] MRNA VACCINATION 00:00:00 [facility] PFIZER COVID-19 2020-07-23 Completed [facility] MRNA VACCINATION 00:00:00 [facility] PFIZER COVID-19 2020-07-23 Completed [facility] MRNA VACCINATION 00:00:00 [facility] PFIZER COVID-19 2020-07-23 Completed [facility] MRNA VACCINATION 00:00:00 [facility] SARS-COV-2 COVID-19 2020-07-23 Completed [facility] PFIZER VACCINE 00:00:00 [facility] SARS-COV-2 COVID-19 2020-07-23 Completed [facility] of PFIZER VACCINE 00:00:00 [facility] SARS-COV-2 COVID-19 2020-07-23 Completed [facility] of PFIZER VACCINE 00:00:00 [facility] SARS-COV-2 COVID-19 2020-07-23 Completed [facility] of PFIZER VACCINE 00:00:00 [facility] SARS-COV-2 COVID-19 2020-07-23 Completed [facility] of PFIZER VACCINE 00:00:00 [facility] SARS-COV-2 COVID-19 2020-07-23 Completed [facility] PFIZER VACCINE 00:00:00 [facility] SARS-COV-2 COVID-19 2020-07-23 Completed [facility] PFIZER VACCINE 00:00:00 [facility] SARS-COV-2 COVID-19 2020-07-23 Completed [facility] of PFIZER VACCINE 00:00:00 [facility] SARS-COV-2 COVID-19 2020-07-23 Completed [facility] PFIZER VACCINE 00:00:00 [facility] SARS-COV-2 COVID-19 2020-07-23 Completed [facility] PFIZER VACCINE 00:00:00 [facility] SARS-COV-2 COVID-19 2020-07-23 Completed [facility] of PFIZER VACCINE 00:00:00 [facility] SARS-COV-2 COVID-19 2020-07-23 Completed [facility] PFIZER VACCINE 00:00:00 [facility] SARS-COV-2 COVID-19 2020-07-23 Completed [facility] of PFIZER VACCINE 00:00:00 [facility] SARS-COV-2 COVID-19 2020-07-23 Completed [facility] PFIZER VACCINE 00:00:00 [facility] SARS-COV-2 COVID-19 2020-07-23 Completed [facility] PFIZER VACCINE 00:00:00 [facility] SARS-COV-2 COVID-19 2020-07-23 Completed [facility] of PFIZER VACCINE 00:00:00 [facility] SARS-COV-2 COVID-19 2020-07-23 Completed [facility] PFIZER VACCINE 00:00:00 [facility] PFIZER COVID-19 2020-07-23 Completed [facility] MRNA VACCINATION 00:00:00 [facility] PFIZER COVID-19 2020-07-02 Completed [facility] MRNA VACCINATION 00:00:00 [facility] PFIZER COVID-19 2020-07-02 Completed [facility] MRNA VACCINATION 00:00:00 [facility] PFIZER COVID-19 2020-07-02 Completed [facility] MRNA VACCINATION 00:00:00 [facility] PFIZER COVID-19 2020-07-02 Completed [facility] MRNA VACCINATION 00:00:00 [facility] PFIZER COVID-19 2020-07-02 Completed [facility] MRNA VACCINATION 00:00:00 [facility] PFIZER COVID-19 2020-07-02 Completed [facility] MRNA VACCINATION 00:00:00 [facility] PFIZER COVID-19 2020-07-02 Completed [facility] MRNA VACCINATION 00:00:00 [facility] PFIZER COVID-19 2020-07-02 Completed [facility] MRNA VACCINATION 00:00:00 [facility] PFIZER COVID-19 2020-07-02 Completed [facility] MRNA VACCINATION 00:00:00 [facility] PFIZER COVID-19 2020-07-02 Completed [facility] MRNA VACCINATION 00:00:00 [facility] PFIZER COVID-19 2020-07-02 Completed [facility] MRNA VACCINATION 00:00:00 [facility] PFIZER COVID-19 2020-07-02 Completed [facility] MRNA VACCINATION 00:00:00 [facility] PFIZER COVID-19 2020-07-02 Completed [facility] MRNA VACCINATION 00:00:00 [facility] PFIZER COVID-19 2020-07-02 Completed [facility] MRNA VACCINATION 00:00:00 [facility] PFIZER COVID-19 2020-07-02 Completed [facility] MRNA VACCINATION 00:00:00 [facility] PFIZER COVID-19 2020-07-02 Completed [facility] MRNA VACCINATION 00:00:00 [facility] PEG COVID-19 2020-07-02 Completed [facility] MRNA VACCINATION 00:00:00 [facility] PEG COVID-19 2020-07-02 Completed [facility] MRNA VACCINATION 00:00:00 [facility] PFIZER COVID-19 2020-07-02 Completed [facility] MRNA VACCINATION 00:00:00 [facility] PFIZER COVID-19 2020-07-02 Completed [facility] MRNA VACCINATION 00:00:00 [facility] PFIZER COVID-19 2020-07-02 Completed [facility] MRNA VACCINATION 00:00:00 [facility] PFIZER COVID-19 2020-07-02 Completed [facility] MRNA VACCINATION 00:00:00 [facility] PFIZER COVID-19 2020-07-02 Completed [facility] MRNA VACCINATION 00:00:00 [facility] PFIZER COVID-19 2020-07-02 Completed [facility] MRNA VACCINATION 00:00:00 [facility] PFIZER COVID-19 2020-07-02 Completed [facility] MRNA VACCINATION 00:00:00 [facility] PFIZER COVID-19 2020-07-02 Completed [facility] MRNA VACCINATION 00:00:00 [facility] PFIZER COVID-19 2020-07-02 Completed [facility] MRNA VACCINATION 00:00:00 [facility] PFIZER COVID-19 2020-07-02 Completed [facility] MRNA VACCINATION 00:00:00 [facility] PFIZER COVID-19 2020-07-02 Completed [facility] MRNA VACCINATION 00:00:00 [facility] PFIZER COVID-19 2020-07-02 Completed [facility] MRNA VACCINATION 00:00:00 [facility] PFIZER COVID-19 2020-07-02 Completed [facility] MRNA VACCINATION 00:00:00 [facility] PFIZER COVID-19 2020-07-02 Completed [facility] MRNA VACCINATION 00:00:00 [facility] PFIZER COVID-19 2020-07-02 Completed [facility] MRNA VACCINATION 00:00:00 [facility] PFIZER COVID-19 2020-07-02 Completed [facility] MRNA VACCINATION 00:00:00 [facility] PFIZER COVID-19 2020-07-02 Completed [facility] MRNA VACCINATION 00:00:00 [facility] PFIZER COVID-19 2020-07-02 Completed [facility] MRNA VACCINATION 00:00:00 [facility] PFIZER COVID-19 2020-07-02 Completed [facility] MRNA VACCINATION 00:00:00 [facility] PFIZER COVID-19 2020-07-02 Completed [facility] MRNA VACCINATION 00:00:00 [facility] PFIZER COVID-19 2020-07-02 Completed [facility] MRNA VACCINATION 00:00:00 [facility] PFIZER COVID-19 2020-07-02 Completed [facility] MRNA VACCINATION 00:00:00 [facility] PFIZER COVID-19 2020-07-02 Completed [facility] MRNA VACCINATION 00:00:00 [facility] PFIZER COVID-19 2020-07-02 Completed [facility] MRNA VACCINATION 00:00:00 [facility] PFIZER COVID-19 2020-07-02 Completed [facility] MRNA VACCINATION 00:00:00 [facility] PFIZER COVID-19 2020-07-02 Completed [facility] MRNA VACCINATION 00:00:00 [facility] PFIZER COVID-19 2020-07-02 Completed [facility] MRNA VACCINATION 00:00:00 [facility] PFIZER COVID-19 2020-07-02 Completed [facility] MRNA VACCINATION 00:00:00 [facility] PFIZER COVID-19 2020-07-02 Completed [facility] MRNA VACCINATION 00:00:00 [facility] SARS-COV-2 COVID-19 2020-07-02 Completed [facility] PFIZER VACCINE 00:00:00 [facility] SARS-COV-2 COVID-19 2020-07-02 Completed [facility] of PFIZER VACCINE 00:00:00 [facility] SARS-COV-2 COVID-19 2020-07-02 Completed [facility] of PFIZER VACCINE 00:00:00 [facility] SARS-COV-2 COVID-19 2020-07-02 Completed [facility] of PFIZER VACCINE 00:00:00 [facility] SARS-COV-2 COVID-19 2020-07-02 Completed [facility] of PFIZER VACCINE 00:00:00 [facility] SARS-COV-2 COVID-19 2020-07-02 Completed [facility] of PFIZER VACCINE 00:00:00 [facility] SARS-COV-2 COVID-19 2020-07-02 Completed [facility] of PFIZER VACCINE 00:00:00 [facility] SARS-COV-2 COVID-19 2020-07-02 Completed [facility] of PFIZER VACCINE 00:00:00 [facility] SARS-COV-2 COVID-19 2020-07-02 Completed [facility] of PFIZER VACCINE 00:00:00 [facility] SARS-COV-2 COVID-19 2020-07-02 Completed [facility] of PFIZER VACCINE 00:00:00 [facility] SARS-COV-2 COVID-19 2020-07-02 Completed [facility] of PFIZER VACCINE 00:00:00 [facility] SARS-COV-2 COVID-19 2020-07-02 Completed [facility] of PFIZER VACCINE 00:00:00 [facility] SARS-COV-2 COVID-19 2020-07-02 Completed [facility] of PFIZER VACCINE 00:00:00 [facility] SARS-COV-2 COVID-19 2020-07-02 Completed [facility] of PFIZER VACCINE 00:00:00 [facility] SARS-COV-2 COVID-19 2020-07-02 Completed [facility] of PFIZER VACCINE 00:00:00 [facility] SARS-COV-2 COVID-19 2020-07-02 Completed [facility] of PFIZER VACCINE 00:00:00 [facility] SARS-COV-2 COVID-19 2020-07-02 Completed [facility] PFIZER VACCINE 00:00:00 [facility] PFIZER COVID-19 2020-07-02 Completed [facility] MRNA VACCINATION 00:00:00 [facility] Influenza Virus 2017-03-08 Completed [facility] Vaccine 00:00:00 [facility] Influenza Virus 2017-03-08 Completed [facility] Vaccine 00:00:00 [facility] Influenza Virus 2017-03-08 Completed [facility] Vaccine 00:00:00 [facility] Influenza Virus 2017-03-08 Completed [facility] Vaccine 00:00:00 [facility] Influenza Virus 2017-03-08 Completed [facility] Vaccine 00:00:00 [facility] Influenza Virus 2017-03-08 Completed [facility] Vaccine 00:00:00 [facility] Influenza Virus 2017-03-08 Completed [facility] Vaccine 00:00:00 [facility] Influenza Virus 2017-03-08 Completed [facility] Vaccine 00:00:00 [facility] Influenza Virus 2017-03-08 Completed [facility] Vaccine 00:00:00 [facility] Influenza Virus 2017-03-08 Completed [facility] Vaccine 00:00:00 [facility] Influenza Virus 2017-03-08 Completed [facility] Vaccine 00:00:00 [facility] Influenza Virus 2017-03-08 Completed [facility] Vaccine 00:00:00 [facility] Influenza Virus 2017-03-08 Completed [facility] Vaccine 00:00:00 [facility] Influenza Virus 2017-03-08 Completed [facility] Vaccine 00:00:00 [facility] Influenza Virus 2017-03-08 Completed [facility] Vaccine 00:00:00 [facility] Influenza Virus 2017-03-08 Completed [facility] Vaccine 00:00:00 [facility] Influenza Virus 2017-03-08 Completed [facility] Vaccine 00:00:00 [facility] Influenza Virus 2017-03-08 Completed [facility] Vaccine 00:00:00 [facility] Influenza Virus 2017-03-08 Completed [facility] Vaccine 00:00:00 [facility] Influenza Virus 2017-03-08 Completed [facility] Vaccine 00:00:00 [facility] Influenza Virus 2017-03-08 Completed [facility] Vaccine 00:00:00 [facility] Influenza Virus 2014-01-30 Completed [facility] Vaccine (3+ yrs) [facility] 2014-01-30 Completed [facility] of Conjugate, PCV13 00:00:00 [facility] dical (Prevnar 13) Branch Influenza Virus 2014-01-30 Completed [facility] of Vaccine (3+ yrs) 00:00:00 [facility] dical Branch Pneumococcal 13 2014-01-30 Completed [facility] of Conjugate, PCV13 00:00:00 [facility] dical (Prevnar 13) [place] Influenza Virus 2014-01-30 Completed [facility] Vaccine (3+ yrs) 00:00:00 [facility] Pneumococcal 13 2014-01-30 Completed [facility] Conjugate, PCV13 00:00:00 [place] [facility] (Prevnar 13) Branch Influenza Virus 2014-01-30 Completed [facility] Vaccine (3+ yrs) 00:00:00 [place] [facility] Pneumococcal 13 2014-01-30 Completed [facility] Conjugate, PCV13 00:00:00 [place] [facility] (Prevnar 13) Branch Influenza Virus 2014-01-30 Completed [facility] Vaccine (3+ yrs) 00:00:00 [place] [facility] Pneumococcal 13 2014-01-30 Completed [facility] of Conjugate, PCV13 00:00:00 [place] [facility] (Prevnar 13) Branch Influenza Virus 2014-01-30 Completed [facility] Vaccine (3+ yrs) 00:00:00 [place] [facility] Pneumococcal 13 2014-01-30 Completed [facility] of Conjugate, PCV13 00:00:00 [place] [facility] (Prevnar 13) Branch Influenza Virus 2014-01-30 Completed [facility] Vaccine (3+ yrs) 00:00:00 [facility] dical Branch Pneumococcal 13 2014-01-30 Completed [facility] of Conjugate, PCV13 00:00:00 [place] [facility] (Prevnar 13) Branch Influenza Virus 2014-01-30 Completed [facility] Vaccine (3+ yrs) 00:00:00 [facility] dical Branch Pneumococcal 13 2014-01-30 Completed [facility] of Conjugate, PCV13 00:00:00 [facility] dical (Prevnar 13) Branch Influenza Virus 2014-01-30 Completed [facility] of Vaccine (3+ yrs) 00:00:00 [facility] dical Branch Pneumococcal 13 2014-01-30 Completed [facility] of Conjugate, PCV13 00:00:00 [place] [facility] (Prevnar 13) Branch Influenza Virus 2014-01-30 Completed [facility] Vaccine (3+ yrs) 00:00:00 [place] [facility] Pneumococcal 13 2014-01-30 Completed [facility] of Conjugate, PCV13 00:00:00 [facility] dical (Prevnar 13) Branch Influenza Virus 2014-01-30 Completed [facility] Vaccine (3+ yrs) 00:00:00 [facility] dical Branch Pneumococcal 13 2014-01-30 Completed [facility] Conjugate, PCV13 00:00:00 [place] [facility] (Prevnar 13) Branch Influenza Virus 2014-01-30 Completed [facility] Vaccine (3+ yrs) 00:00:00 [place] [facility] Pneumococcal 13 2014-01-30 Completed [facility] Conjugate, PCV13 00:00:00 [place] [facility] (Prevnar 13) Branch Influenza Virus 2014-01-30 Completed [facility] Vaccine (3+ yrs) 00:00:00 [place] [facility] Pneumococcal 13 2014-01-30 Completed [facility] Conjugate, PCV13 00:00:00 [facility] (Prevnar 13) [facility] Influenza Virus 2014-01-30 Completed [facility] Vaccine (3+ yrs) 00:00:00 [facility] Pneumococcal 13 2014-01-30 Completed [facility] of Conjugate, PCV13 00:00:00 [facility] dical (Prevnar 13) Branch Influenza Virus 2014-01-30 Completed [facility] of Vaccine (3+ yrs) 00:00:00 [facility] dical Branch Pneumococcal 13 2014-01-30 Completed [facility]it [facility] of Conjugate, PCV13 00:00:00 [facility] dical (Prevnar 13) Branch Influenza Virus 2014-01-30 Completed [facility] of Vaccine (3+ yrs) 00:00:00 [facility] dical Branch Pneumococcal 13 2014-01-30 Completed [facility]it [facility] of Conjugate, PCV13 00:00:00 [facility] dical (Prevnar 13) Branch Influenza Virus 2014-01-30 Completed [facility] of Vaccine (3+ yrs) 00:00:00 [facility] dical Branch Pneumococcal 13 2014-01-30 Completed [facility] of Conjugate, PCV13 00:00:00 [facility] (Prevnar 13) [facility] Influenza Virus 2014-01-30 Completed [facility] Vaccine (3+ yrs) 00:00:00 [facility] Pneumococcal 13 2014-01-30 Completed [facility] Conjugate, PCV13 00:00:00 [facility] (Prevnar 13) Branch Influenza Virus 2014-01-30 Completed [facility] Vaccine (3+ yrs) 00:00:00 [facility] dical Branch Pneumococcal 13 2014-01-30 Completed [facility]it [facility] of Conjugate, PCV13 00:00:00 [facility] dical (Prevnar 13) Branch Influenza Virus 2014-01-30 Completed [facility] of Vaccine (3+ yrs) 00:00:00 [facility] dical Branch Pneumococcal 13 2014-01-30 Completed [facility]it [facility] of Conjugate, PCV13 00:00:00 [facility] dical (Prevnar 13) Branch Influenza Virus 2014-01-30 Completed [facility] of Vaccine (3+ yrs) 00:00:00 [facility] dical Branch Pneumococcal 13 2014-01-30 Completed [facility]it [facility] of Conjugate, PCV13 00:00:00 [facility] dical (Prevnar 13) Branch Pneumococcal 2012-02-16 Completed [facility] o f Polysaccharide, 00:00:00 [facility] PPSV23 (PNEUMOVAX) Branch Influenza Virus 2012-02-16 Completed [facility] Vaccine 00:00:00 [facility] PPD (TB) 2012-02-16 Completed [facility] of 00:00:00 [facility] Pneumococcal 2012-02-16 Completed [facility] o f Polysaccharide, 00:00:00 [facility] PPSV23 (PNEUMOVAX) Branch Influenza Virus 2012-02-16 Completed [facility] of Vaccine 00:00:00 [facility] PPD (TB) 2012-02-16 Completed [facility] of 00:00:00 [facility] Pneumococcal 2012-02-16 Completed [facility] o f Polysaccharide, 00:00:00 [facility] PPSV23 (PNEUMOVAX) Branch Influenza Virus 2012-02-16 Completed [facility] of Vaccine 00:00:00 [facility] PPD (TB) 2012-02-16 Completed [facility] of 00:00:00 [facility] Pneumococcal 2012-02-16 Completed [facility] o f Polysaccharide, 00:00:00 [facility] PPSV23 (PNEUMOVAX) Branch Influenza Virus 2012-02-16 Completed [facility] of Vaccine 00:00:00 [facility] PPD (TB) 2012-02-16 Completed [facility] of 00:00:00 [facility] Pneumococcal 2012-02-16 Completed [facility] o f Polysaccharide, 00:00:00 [facility] PPSV23 (PNEUMOVAX) Branch Influenza Virus 2012-02-16 Completed [facility] of Vaccine 00:00:00 [facility] PPD (TB) 2012-02-16 Completed [facility] of 00:00:00 [facility] Pneumococcal 2012-02-16 Completed [facility] o f Polysaccharide, 00:00:00 [facility] PPSV23 (PNEUMOVAX) Branch Influenza Virus 2012-02-16 Completed [facility] of Vaccine 00:00:00 [facility] PPD (TB) 2012-02-16 Completed [facility] of 00:00:00 [facility] Pneumococcal 2012-02-16 Completed [facility] o f Polysaccharide, 00:00:00 [facility] PPSV23 (PNEUMOVAX) Branch Influenza Virus 2012-02-16 Completed [facility] of Vaccine 00:00:00 [facility] PPD (TB) 2012-02-16 Completed [facility] of 00:00:00 [facility] Pneumococcal 2012-02-16 Completed [facility] o f Polysaccharide, 00:00:00 [place] [facility] PPSV23 (PNEUMOVAX) Branch Influenza Virus 2012-02-16 Completed [facility] of Vaccine 00:00:00 [facility] PPD (TB) 2012-02-16 Completed [facility] of 00:00:00 [facility] Pneumococcal 2012-02-16 Completed [facility] o f Polysaccharide, 00:00:00 [place] [facility] PPSV23 (PNEUMOVAX) Branch Influenza Virus 2012-02-16 Completed [facility] of Vaccine 00:00:00 [facility] PPD (TB) 2012-02-16 Completed [facility] of 00:00:00 [facility] Pneumococcal 2012-02-16 Completed [facility] o f Polysaccharide, 00:00:00 [place] [facility] PPSV23 (PNEUMOVAX) Branch Influenza Virus 2012-02-16 Completed [facility] of Vaccine 00:00:00 [facility] PPD (TB) 2012-02-16 Completed [facility] of 00:00:00 [facility] Pneumococcal 2012-02-16 Completed [facility] o f Polysaccharide, 00:00:00 [facility] PPSV23 (PNEUMOVAX) Branch Influenza Virus 2012-02-16 Completed [facility] of Vaccine 00:00:00 [facility] PPD (TB) 2012-02-16 Completed [facility] of 00:00:00 [facility] Pneumococcal 2012-02-16 Completed [facility] o f Polysaccharide, 00:00:00 [place] [facility] PPSV23 (PNEUMOVAX) Branch Influenza Virus 2012-02-16 Completed [facility] of Vaccine 00:00:00 [facility] PPD (TB) 2012-02-16 Completed [facility] of 00:00:00 [facility] Pneumococcal 2012-02-16 Completed [facility] o f Polysaccharide, 00:00:00 [place] [facility] PPSV23 (PNEUMOVAX) Branch Influenza Virus 2012-02-16 Completed [facility] of Vaccine 00:00:00 [facility] PPD (TB) 2012-02-16 Completed [facility] of 00:00:00 [facility] Pneumococcal 2012-02-16 Completed [facility] o f Polysaccharide, 00:00:00 [place] [facility] PPSV23 (PNEUMOVAX) Branch Influenza Virus 2012-02-16 Completed [facility] of Vaccine 00:00:00 [facility] PPD (TB) 2012-02-16 Completed [facility] of 00:00:00 [facility] Pneumococcal 2012-02-16 Completed [facility] o f Polysaccharide, 00:00:00 [place] [facility] PPSV23 (PNEUMOVAX) Branch Influenza Virus 2012-02-16 Completed [facility] of Vaccine 00:00:00 [facility] PPD (TB) 2012-02-16 Completed [facility] of 00:00:00 [facility] Pneumococcal 2012-02-16 Completed [facility] o f Polysaccharide, 00:00:00 [place] [facility] PPSV23 (PNEUMOVAX) Branch Influenza Virus 2012-02-16 Completed [facility] of Vaccine 00:00:00 [facility] PPD (TB) 2012-02-16 Completed [facility] of 00:00:00 [facility] Pneumococcal 2012-02-16 Completed [facility] o f Polysaccharide, 00:00:00 [place] [facility] PPSV23 (PNEUMOVAX) Branch Influenza Virus 2012-02-16 Completed [facility] of Vaccine 00:00:00 [facility] PPD (TB) 2012-02-16 Completed [facility] of 00:00:00 [facility] Pneumococcal 2012-02-16 Completed [facility] o f Polysaccharide, 00:00:00 [place] [facility] PPSV23 (PNEUMOVAX) Branch Influenza Virus 2012-02-16 Completed [facility] of Vaccine 00:00:00 [facility] PPD (TB) 2012-02-16 Completed [facility] of 00:00:00 [facility] Pneumococcal 2012-02-16 Completed [facility] o f Polysaccharide, 00:00:00 [place] [facility] PPSV23 (PNEUMOVAX) Branch Influenza Virus 2012-02-16 Completed [facility] of Vaccine 00:00:00 [facility] PPD (TB) 2012-02-16 Completed [facility] of 00:00:00 [facility] Pneumococcal 2012-02-16 Completed [facility] o f Polysaccharide, 00:00:00 [place] [facility] PPSV23 (PNEUMOVAX) Branch Influenza Virus 2012-02-16 Completed [facility] of Vaccine 00:00:00 [facility] PPD (TB) 2012-02-16 Completed [facility] of 00:00:00 [facility] Pneumococcal 2012-02-16 Completed [facility] o f Polysaccharide, 00:00:00 [facility] PPSV23 (PNEUMOVAX) [place] Influenza Virus 2012-02-16 Completed [facility] of Vaccine 00:00:00 [facility] PPD (TB) 2012-02-16 Completed [facility] of 00:00:00 [facility] Hep B, Adol or Pedi 2011-09-01 Completed Unive rsity of Dosage 00:00:00 [facility] Hep B, Adol or Pedi 2011-09-01 Completed Unive rsity of Dosage 00:00:00 [facility] Hep B, Adol or Pedi 2011-09-01 Completed Unive rsity of Dosage 00:00:00 [facility] Hep B, Adol or Pedi 2011-09-01 Completed Unive rsity of Dosage 00:00:00 [facility] Hep B, Adol or Pedi 2011-09-01 Completed Unive rsity of Dosage 00:00:00 [facility] Hep B, Adol or Pedi 2011-09-01 Completed Unive rsity of Dosage 00:00:00 [facility] Hep B, Adol or Pedi 2011-09-01 Completed Unive rsity of Dosage 00:00:00 [facility] Hep B, Adol or Pedi 2011-09-01 Completed Unive rsity of Dosage 00:00:00 [facility] Hep B, Adol or Pedi 2011-09-01 Completed Unive rsity of Dosage 00:00:00 [facility] Hep B, Adol or Pedi 2011-09-01 Completed Unive rsity of Dosage 00:00:00 [facility] Hep B, Adol or Pedi 2011-09-01 Completed Unive rsity of Dosage 00:00:00 [facility] Hep B, Adol or Pedi 2011-09-01 Completed Unive rsity of Dosage 00:00:00 [facility] Hep B, Adol or Pedi 2011-09-01 Completed Unive rsity of Dosage 00:00:00 [facility] Hep B, Adol or Pedi 2011-09-01 Completed Unive rsity of Dosage 00:00:00 [facility] Hep B, Adol or Pedi 2011-09-01 Completed [...] 2011-03-17 Completed [facility]ive rsity of Dosage 00:00:00 [facility] Hep B, Adol or Pedi 2011-03-17 Completed Unive rsity of Dosage 00:00:00 [facility] Hep B, Adol or Pedi 2011-03-17 Completed Unive rsity of Dosage 00:00:00 [facility] Hep B, Adol or Pedi 2011-03-17 Completed Unive rsity of Dosage 00:00:00 [facility] Hep B, Adol or Pedi 2011-03-17 Completed Unive rsity of Dosage 00:00:00 [facility] Hep B, Adol or Pedi 2011-03-17 Completed [facility]ive rsity of Dosage 00:00:00 [facility] Hep B, Adol or Pedi 2011-03-17 Completed Unive rsity of Dosage 00:00:00 [facility] Hep B, Adol or Pedi 2011-03-17 Completed Unive rsity of Dosage 00:00:00 [facility] Hep B, Adol or Pedi 2011-03-17 Completed Unive rsity of Dosage 00:00:00 [facility] Hep B, Adol or Pedi 2011-03-17 Completed Unive rsity of Dosage 00:00:00 [facility] Influenza Virus 2011-02-10 Completed [facility] of Vaccine 00:00:00 [facility] Hep B, Adol or Pedi 2011-02-10 Completed Unive rsity of Dosage 00:00:00 [facility] Influenza Virus 2011-02-10 Completed [facility] of Vaccine 00:00:00 [facility] Hep B, Adol or Pedi 2011-02-10 Completed Unive rsity of Dosage 00:00:00 [facility] Influenza Virus 2011-02-10 Completed [facility] of Vaccine 00:00:00 [facility] Hep B, Adol or Pedi 2011-02-10 Completed [facility]ive rsity of Dosage 00:00:00 [facility] Influenza Virus 2011-02-10 Completed [facility] of Vaccine 00:00:00 [facility] Hep B, Adol or Pedi 2011-02-10 Completed [facility]ive rsity of Dosage 00:00:00 [facility] Influenza Virus 2011-02-10 Completed [facility] of Vaccine 00:00:00 [facility] Hep B, Adol or Pedi 2011-02-10 Completed [facility]ive rsity of Dosage 00:00:00 [facility] Influenza Virus 2011-02-10 Completed [facility] of Vaccine 00:00:00 [facility] Hep B, Adol or Pedi 2011-02-10 Completed [facility]ive rsity of Dosage 00:00:00 [facility] Influenza Virus 2011-02-10 Completed [facility] of Vaccine 00:00:00 [facility] Hep B, Adol or Pedi 2011-02-10 Completed [facility]ive rsity of Dosage 00:00:00 [facility] Influenza Virus 2011-02-10 Completed [facility] of Vaccine 00:00:00 [facility] Hep B, Adol or Pedi 2011-02-10 Completed [facility]ive rsity of Dosage 00:00:00 [facility] Influenza Virus 2011-02-10 Completed [facility] of Vaccine 00:00:00 [facility] Hep B, Adol or Pedi 2011-02-10 Completed [facility]ive rsity of Dosage 00:00:00 [facility] Influenza Virus 2011-02-10 Completed [facility] of Vaccine 00:00:00 [facility] Hep B, Adol or Pedi 2011-02-10 Completed [facility]ive rsity of Dosage 00:00:00 [facility] Influenza Virus 2011-02-10 Completed [facility] of Vaccine 00:00:00 [facility] Hep B, Adol or Pedi 2011-02-10 Completed [facility]ive rsity of Dosage 00:00:00 [facility] Influenza Virus 2011-02-10 Completed [facility] of Vaccine 00:00:00 [facility] Hep B, Adol or Pedi 2011-02-10 Completed [facility] rsity of Dosage 00:00:00 [facility] Influenza Virus 2011-02-10 Completed [facility] of Vaccine 00:00:00 [facility] Hep B, Adol or Pedi 2011-02-10 Completed [facility] rs[facility] of Dosage 00:00:00 [facility] Influenza Virus 2011-02-10 Completed [facility] of Vaccine 00:00:00 [facility] Hep B, Adol or Pedi 2011-02-10 Completed [facility] rsity of Dosage 00:00:00 [facility] Influenza Virus 2011-02-10 Completed [facility] of Vaccine 00:00:00 [facility] Hep B, Adol or Pedi 2011-02-10 Completed [facility] rsity of Dosage 00:00:00 [facility] Influenza Virus 2011-02-10 Completed [facility] of Vaccine 00:00:00 [facility] Hep B, Adol or Pedi 2011-02-10 Completed [facility] rsity of Dosage 00:00:00 [facility] Influenza Virus 2011-02-10 Completed [facility] of Vaccine 00:00:00 [facility] Hep B, Adol or Pedi 2011-02-10 Completed [facility] rsity of Dosage 00:00:00 [facility] Influenza Virus 2011-02-10 Completed [facility] of Vaccine 00:00:00 [facility] Hep B, Adol or Pedi 2011-02-10 Completed [facility] rsity of Dosage 00:00:00 [facility] Influenza Virus 2011-02-10 Completed [facility] of Vaccine 00:00:00 [facility] Hep B, Adol or Pedi 2011-02-10 Completed [facility] rsity of Dosage 00:00:00 [facility] Influenza Virus 2011-02-10 Completed [facility] of Vaccine 00:00:00 [facility] Hep B, Adol or Pedi 2011-02-10 Completed [facility] rsity of Dosage 00:00:00 [facility] Influenza Virus 2011-02-10 Completed [facility] of Vaccine 00:00:00 [facility] Hep B, Adol or Pedi 2011-02-10 Completed [facility] rs[facility] of Dosage 00:00:00 [facility] PPD (TB) 2010-11-18 Completed [facility] of 00:00:00 [facility] TDAP (ADACEL) 2010-11-18 Completed University of VACCINE 00:00:00 [facility] PPD (TB) 2010-11-18 Completed [facility] of 00:00:00 [facility] TDAP (ADACEL) 2010-11-18 Completed [facility] of VACCINE 00:00:00 [facility] PPD (TB) 2010-11-18 Completed [facility] of 00:00:00 [facility] TDAP (ADACEL) 2010-11-18 Completed [facility] of VACCINE 00:00:00 [facility] PPD (TB) 2010-11-18 Completed [facility] of 00:00:00 [facility] TDAP (ADACEL) 2010-11-18 Completed [facility] of VACCINE 00:00:00 [facility] PPD (TB) 2010-11-18 Completed [facility] of 00:00:00 [facility] TDAP (ADACEL) 2010-11-18 Completed [facility] of VACCINE 00:00:00 [facility] PPD (TB) 2010-11-18 Completed [facility] of 00:00:00 [facility] TDAP (ADACEL) 2010-11-18 Completed [facility] of VACCINE 00:00:00 [facility] PPD (TB) 2010-11-18 Completed [facility] of 00:00:00 [facility] TDAP (ADACEL) 2010-11-18 Completed [facility] of VACCINE 00:00:00 [facility] PPD (TB) 2010-11-18 Completed [facility] of 00:00:00 [facility] TDAP (ADACEL) 2010-11-18 Completed [facility] of VACCINE 00:00:00 [facility] PPD (TB) 2010-11-18 Completed [facility] of 00:00:00 [facility] TDAP (ADACEL) 2010-11-18 Completed [facility] of VACCINE 00:00:00 [facility] PPD (TB) 2010-11-18 Completed [facility] of 00:00:00 [facility] TDAP (ADACEL) 2010-11-18 Completed [facility] of VACCINE 00:00:00 [facility] PPD (TB) 2010-11-18 Completed [facility] of 00:00:00 [facility] TDAP (ADACEL) 2010-11-18 Completed [facility] of VACCINE 00:00:00 [facility] PPD (TB) 2010-11-18 Completed [facility] of 00:00:00 [facility] TDAP (ADACEL) 2010-11-18 Completed [facility] of VACCINE 00:00:00 [facility] PPD (TB) 2010-11-18 Completed [facility] of 00:00:00 [facility] TDAP (ADACEL) 2010-11-18 Completed [facility] of VACCINE 00:00:00 [facility] PPD (TB) 2010-11-18 Completed [facility] of 00:00:00 [facility] TDAP (ADACEL) 2010-11-18 Completed [facility] of VACCINE 00:00:00 [facility] PPD (TB) 2010-11-18 Completed [facility] of 00:00:00 [facility] TDAP (ADACEL) 2010-11-18 Completed [facility] of VACCINE 00:00:00 [facility] PPD (TB) 2010-11-18 Completed [facility] of 00:00:00 [facility] TDAP (ADACEL) 2010-11-18 Completed [facility] of VACCINE 00:00:00 [facility] PPD (TB) 2010-11-18 Completed [facility] of 00:00:00 [facility] TDAP (ADACEL) 2010-11-18 Completed [facility] of VACCINE 00:00:00 [facility] PPD (TB) 2010-11-18 Completed [facility] of 00:00:00 [facility] TDAP (ADACEL) 2010-11-18 Completed [facility] of VACCINE 00:00:00 [facility] PPD (TB) 2010-11-18 Completed [facility] of 00:00:00 [facility] TDAP (ADACEL) 2010-11-18 Completed [facility] of VACCINE 00:00:00 [facility] PPD (TB) 2010-11-18 Completed [facility] of 00:00:00 [facility] TDAP (ADACEL) 2010-11-18 Completed [facility] of VACCINE 00:00:00 [facility] PPD (TB) 2010-11-18 Completed [facility] of 00:00:00 [facility] TDAP (ADACEL) 2010-11-18 Completed [facility] of VACCINE 00:00:00 [facility] HEPATITIS A 2004-03-02 Completed [facility] of 00:00:00 [facility] HEPATITIS A 2004-03-02 Completed [facility] of 00:00:00 [facility] HEPATITIS A 2004-03-02 Completed [facility] of 00:00:00 [facility] HEPATITIS A 2004-03-02 Completed [facility] of 00:00:00 [facility] HEPATITIS A 2004-03-02 Completed [facility] of 00:00:00 [facility] HEPATITIS A 2004-03-02 Completed [facility] of 00:00:00 [facility] HEPATITIS A 2004-03-02 Completed [facility] of 00:00:00 [facility] HEPATITIS A 2004-03-02 Completed [facility] of 00:00:00 [facility] HEPATITIS A 2004-03-02 Completed [facility] of 00:00:00 [facility] HEPATITIS A 2004-03-02 Completed [facility] of 00:00:00 [facility] HEPATITIS A 2004-03-02 Completed [facility] of 00:00:00 [facility] HEPATITIS A 2004-03-02 Completed [facility] of 00:00:00 [facility] HEPATITIS A 2004-03-02 Completed [facility] of 00:00:00 [facility] HEPATITIS A 2004-03-02 Completed [facility] of 00:00:00 [facility] HEPATITIS A 2004-03-02 Completed [facility] of 00:00:00 [facility] HEPATITIS A 2004-03-02 Completed [facility] of 00:00:00 [facility] HEPATITIS A 2004-03-02 Completed [facility] of 00:00:00 [facility] HEPATITIS A 2004-03-02 Completed [facility] of 00:00:00 [facility] HEPATITIS A 2004-03-02 Completed [facility] of 00:00:00 [facility] HEPATITIS A 2004-03-02 Completed [facility] of 00:00:00 [facility] HEPATITIS A 2004-03-02 Completed [facility] of 00:00:00 [facility] HEPATITIS A 2003-08-01 Completed [facility] of 00:00:00 [facility] HEPATITIS A 2003-08-01 Completed [facility] of 00:00:00 [facility] HEPATITIS A 2003-08-01 Completed [facility] of 00:00:00 [facility] HEPATITIS A 2003-08-01 Completed [facility] of 00:00:00 [facility] HEPATITIS A 2003-08-01 Completed [facility] of 00:00:00 [facility] HEPATITIS A 2003-08-01 Completed [facility] of 00:00:00 [facility] HEPATITIS A 2003-08-01 Completed [facility] of 00:00:00 [facility] HEPATITIS A 2003-08-01 Completed [facility] of 00:00:00 [facility] HEPATITIS A 2003-08-01 Completed [facility] of 00:00:00 [facility] HEPATITIS A 2003-08-01 Completed [facility] of 00:00:00 [facility] HEPATITIS A 2003-08-01 Completed [facility] of 00:00:00 [facility] HEPATITIS A 2003-08-01 Completed [facility] of 00:00:00 [facility] HEPATITIS A 2003-08-01 Completed [facility] of 00:00:00 [facility] HEPATITIS A 2003-08-01 Completed [facility] of 00:00:00 [facility] HEPATITIS A 2003-08-01 Completed [facility] of 00:00:00 [facility] HEPATITIS A 2003-08-01 Completed [facility] of 00:00:00 [facility] HEPATITIS A 2003-08-01 Completed [facility] of 00:00:00 [facility] HEPATITIS A 2003-08-01 Completed [facility] of 00:00:00 [facility] HEPATITIS A 2003-08-01 Completed [facility] of 00:00:00 [facility] HEPATITIS A 2003-08-01 Completed [facility] of 00:00:00 [facility] HEPATITIS A 2003-08-01 Completed [facility] of 00:00:00 [facility] Pneumococcal 2001-10-04 Completed [facility] o f Polysaccharide, 00:00:00 [facility] PPSV23 (PNEUMOVAX) Branch PPD (TB) 2001-10-04 Completed [facility] of 00:00:00 [facility] Pneumococcal 2001-10-04 Completed [facility] o f Polysaccharide, 00:00:00 [place] [facility] PPSV23 (PNEUMOVAX) Branch PPD (TB) 2001-10-04 Completed [facility] of 00:00:00 [facility] Pneumococcal 2001-10-04 Completed [facility] o f Polysaccharide, 00:00:00 [facility] PPSV23 (PNEUMOVAX) Branch PPD (TB) 2001-10-04 Completed [facility] of 00:00:00 [facility] Pneumococcal 2001-10-04 Completed [facility] o f Polysaccharide, 00:00:00 [place] [facility] PPSV23 (PNEUMOVAX) Branch PPD (TB) 2001-10-04 Completed [facility] of 00:00:00 [facility] Pneumococcal 2001-10-04 Completed [facility] o f Polysaccharide, 00:00:00 [facility] PPSV23 (PNEUMOVAX) Branch PPD (TB) 2001-10-04 Completed [facility] of 00:00:00 [facility] Pneumococcal 2001-10-04 Completed [facility] o f Polysaccharide, 00:00:00 [facility] PPSV23 (PNEUMOVAX) Branch PPD (TB) 2001-10-04 Completed [facility] of 00:00:00 [facility] Pneumococcal 2001-10-04 Completed [facility] o f Polysaccharide, 00:00:00 [facility] PPSV23 (PNEUMOVAX) Branch PPD (TB) 2001-10-04 Completed [facility] of 00:00:00 [facility] Pneumococcal 2001-10-04 Completed [facility] o f Polysaccharide, 00:00:00 [facility] PPSV23 (PNEUMOVAX) Branch PPD (TB) 2001-10-04 Completed [facility] of 00:00:00 [facility] Pneumococcal 2001-10-04 Completed [facility] o f Polysaccharide, 00:00:00 [facility] PPSV23 (PNEUMOVAX) Branch PPD (TB) 2001-10-04 Completed [facility] 00:00:00 [facility] Pneumococcal 2001-10-04 Completed [facility] o f Polysaccharide, 00:00:00 [facility] PPSV23 (PNEUMOVAX) Branch PPD (TB) 2001-10-04 Completed [facility] 00:00:00 [facility] Pneumococcal 2001-10-04 Completed [facility] o f Polysaccharide, 00:00:00 [place] [facility] PPSV23 (PNEUMOVAX) Branch PPD (TB) 2001-10-04 Completed University of 00:00:00 [facility] Pneumococcal 2001-10-04 Completed University o f Polysaccharide, 00:00:00 [place] [facility] PPSV23 (PNEUMOVAX) Branch PPD (TB) 2001-10-04 Completed University of 00:00:00 [facility] Pneumococcal 2001-10-04 Completed University o f Polysaccharide, 00:00:00 [place] [facility] PPSV23 (PNEUMOVAX) Branch PPD (TB) 2001-10-04 Completed University of 00:00:00 [facility] Pneumococcal 2001-10-04 Completed University o f Polysaccharide, 00:00:00 [place] [facility] PPSV23 (PNEUMOVAX) Branch PPD (TB) 2001-10-04 Completed University of 00:00:00 [facility] Pneumococcal 2001-10-04 Completed University o f Polysaccharide, 00:00:00 [place] [facility] PPSV23 (PNEUMOVAX) Branch PPD (TB) 2001-10-04 Completed University of 00:00:00 [facility] Pneumococcal 2001-10-04 Completed University o f Polysaccharide, 00:00:00 [place] [facility] PPSV23 (PNEUMOVAX) Branch PPD (TB) 2001-10-04 Completed University of 00:00:00 [facility] Pneumococcal 2001-10-04 Completed University o f Polysaccharide, 00:00:00 [place] [facility] PPSV23 (PNEUMOVAX) Branch PPD (TB) 2001-10-04 Completed University of 00:00:00 [facility] Pneumococcal 2001-10-04 Completed University o f Polysaccharide, 00:00:00 [place] [facility] PPSV23 (PNEUMOVAX) Branch PPD (TB) 2001-10-04 Completed University of 00:00:00 [facility] Pneumococcal 2001-10-04 Completed University o f Polysaccharide, 00:00:00 [place] [facility] PPSV23 (PNEUMOVAX) Branch PPD (TB) 2001-10-04 Completed University of 00:00:00 [facility] Pneumococcal 2001-10-04 Completed University o f Polysaccharide, 00:00:00 [place] [facility] PPSV23 (PNEUMOVAX) Branch PPD (TB) 2001-10-04 Completed University of 00:00:00 [facility] Pneumococcal 2001-10-04 Completed University o f Polysaccharide, 00:00:00 [place] [facility] PPSV23 (PNEUMOVAX) Branch PPD (TB) 2001-10-04 Completed [facility] 00:00:00 [place] [facility] Vital Signs Vital Name Observation Time Observation Value Comments Source Systolic blood 2022-05-10 22:00:00 159 mm[Hg] Univer sity of pressure [place] [facility] Diastolic blood 2022-05-10 22:00:00 87 mm[Hg] Unive rsity of pressure [facility] Heart rate 2022-05-10 22:00:00 56 /min [facility] [place] [facility] Body temperature 2022-05-10 22:00:00 36.61 Amina Univ ers[facility] [place] [facility] Respiratory rate 2022-05-10 22:00:00 17 /min Univ ers[facility] [place] [facility] Oxygen saturation in 2022-05-10 22:00:00 98 /min University of Arterial blood by [facility] Pulse oximetry Branch Body weight 2022-05-10 16:29:00 78.926 kg [facility] [place] [facility] BMI 2022-05-10 16:29:00 29.87 kg/m2 [facility] [place] [facility] Systolic blood 2022-05-08 22:30:00 168 mm[Hg] Univer sity of pressure [facility] Diastolic blood 2022-05-08 22:30:00 85 mm[Hg] Unive rsity of pressure [place] [facility] Heart rate 2022-05-08 22:30:00 68 /min [facility] [place] [facility] Oxygen saturation in 2022-05-08 22:30:00 100 /min University of Arterial blood by [facility] Pulse oximetry Branch Body temperature 2022-05-08 22:22:00 35.89 Amina [facility] [place] [facility] Respiratory rate 2022-05-08 22:22:00 14 /min [facility] [place] [facility] Body weight 2022-05-08 22:22:00 78.926 kg [facility] [place] [facility] BMI 2022-05-08 22:22:00 29.87 kg/m2 [facility] [place] [facility] Systolic blood 2022-05-07 00:00:00 149 mm[Hg] Univer sity of pressure [place] [facility] Diastolic blood 2022-05-07 00:00:00 132 mm[Hg] Unive rsity of pressure [facility] Heart rate 2022-05-07 00:00:00 59 /min [facility] [place] [facility] Respiratory rate 2022-05-07 00:00:00 14 /min Univ ers[facility] [place] [facility] Oxygen saturation in 2022-05-07 00:00:00 99 /min University of Arterial blood by [facility] Pulse oximetry Branch Body temperature 2022-05-06 20:12:00 36.5 Amina [facility] [place] [facility] Body height 2022-05-06 20:12:00 162.6 cm [facility] [place] [facility] Body weight 2022-05-06 20:12:00 78.926 kg [facility] [place] [facility] BMI 2022-05-06 20:12:00 29.87 kg/m2 [facility] [place] [facility] Systolic blood 2022-04-22 19:50:00 156 mm[Hg] Univer sity of pressure [place] [facility] Diastolic blood 2022-04-22 19:50:00 89 mm[Hg] Unive rsity of pressure [facility] Heart rate 2022-04-22 19:50:00 69 /min [facility] [place] [facility] Body temperature 2022-04-22 19:50:00 36.67 Amina [facility] [place] [facility] Respiratory rate 2022-04-22 19:50:00 17 /min [facility] [place] [facility] Body height 2022-04-22 19:50:00 162.6 cm [facility] [place] [facility] Body weight 2022-04-22 19:50:00 80.74 kg [facility] [place] [facility] BMI 2022-04-22 19:50:00 30.55 kg/m2 [facility] [place] [facility] Oxygen saturation in 2022-04-22 19:50:00 96 /min University of Arterial blood by [facility] Pulse oximetry Branch Systolic blood 2022-03-05 15:23:00 167 mm[Hg] Univer sity of pressure [place] [facility] Diastolic blood 2022-03-05 15:23:00 105 mm[Hg] Unive rsity of pressure [place] [facility] Heart rate 2022-03-05 15:23:00 49 /min [facility] [place] [facility] Body temperature 2022-03-05 15:18:00 36.67 Amina [facility] [place] [facility] Respiratory rate 2022-03-05 15:18:00 18 /min [facility] [place] [facility] Body height 2022-03-05 15:18:00 162.6 cm [facility] [place] [facility] Body weight 2022-03-05 15:18:00 74.707 kg [facility] [place] [facility] BMI 2022-03-05 15:18:00 28.27 kg/m2 [facility] [place] [facility] Systolic blood 2022-02-16 21:41:00 169 mm[Hg] Univer sity of pressure [place] [facility] Diastolic blood 2022-02-16 21:41:00 86 mm[Hg] Unive rsity of pressure [place] [facility] Heart rate 2022-02-16 21:41:00 51 /min [facility] [place] [facility] Body temperature 2022-02-16 21:41:00 36.56 Amina [facility] [place] [facility] Respiratory rate 2022-02-16 21:41:00 17 /min Univ ersity of [facility] Oxygen saturation in 2022-02-16 21:41:00 98 /min University of Arterial blood by [facility] Pulse oximetry Branch Body height 2022-02-11 16:02:00 162.6 cm [facility] [place] [facility] Body weight 2022-02-11 16:02:00 79.379 kg [facility] [place] [facility] BMI 2022-02-11 16:02:00 30.04 kg/m2 [facility] [place] [facility] Systolic blood 2021-11-20 13:47:00 165 mm[Hg] Univer sity of [facility] [place] [facility] Diastolic blood 2021-11-20 13:47:00 83 mm[Hg] Unive rsity of pressure [facility] Heart rate 2021-11-20 13:47:00 58 /min [facility] [place] [facility] Body temperature 2021-11-20 13:42:00 36.39 Amina Univ ersity of [facility] Branch Respiratory rate 2021-11-20 13:42:00 16 /min [facility] [place] [facility] Body height 2021-11-20 13:42:00 162.6 cm [facility] [place] [facility] Body weight 2021-11-20 13:42:00 84.369 kg [facility] [place] [facility] BMI 2021-11-20 13:42:00 31.93 kg/m2 [facility] [place] [facility] Systolic blood 2021-07-14 15:18:00 142 [...] 22:00:00 159 mm[Hg] Univer sity of pressure [place] [facility] Diastolic blood 2022-05-10 22:00:00 87 mm[Hg] Unive rsity of pressure [place] [facility] Heart rate 2022-05-10 22:00:00 56 /min [facility] [place] [facility] Body temperature 2022-05-10 22:00:00 36.61 Amina Univ ersity of [facility] Branch Respiratory rate 2022-05-10 22:00:00 17 /min Univ ersity of [facility] Oxygen saturation in 2022-05-10 22:00:00 98 /min University of Arterial blood by [facility] Pulse oximetry Branch Body weight 2022-05-10 16:29:00 78.926 kg [facility] [place] [facility] BMI 2022-05-10 16:29:00 29.87 kg/m2 [facility] [place] [facility] Body height 2022-05-06 20:12:00 162.6 cm [facility] [place] [facility] Systolic blood 2022-03-05 15:23:00 167 mm[Hg] Univer sity of pressure [facility] Diastolic blood 2022-03-05 15:23:00 105 mm[Hg] Unive rsity of pressure [place] [facility] Heart rate 2022-03-05 15:23:00 49 /min [facility] [place] [facility] Body temperature 2022-03-05 15:18:00 36.67 Amina Univ ersity of [facility] Branch Respiratory rate 2022-03-05 15:18:00 18 /min [facility] [place] [facility] Body height 2022-03-05 15:18:00 162.6 cm [facility] Body weight 2022-03-05 15:18:00 74.707 kg [facility] BMI 2022-03-05 15:18:00 28.27 kg/m2 [facility] Oxygen saturation in 2022-02-16 21:41:00 98 /min [facility] Arterial blood by [facility] Pulse oximetry Branch Systolic blood 2020-12-08 15:48:00 125 mm[Hg] Method [facility] pressure Diastolic blood 2020-12-08 15:48:00 76 mm[Hg] [facility] pressure Heart rate 2020-12-08 15:48:00 64 /min [facility] Body temperature 2020-12-08 15:48:00 36.61 Amina [facility] Respiratory rate 2020-12-08 15:48:00 17 /min [facility] Body height 2020-12-08 15:48:00 162.6 cm [facility] Body weight 2020-12-08 15:48:00 98.884 kg [facility] BMI 2020-12-08 15:48:00 37.42 kg/m2 [facility] Oxygen saturation in 2020-12-08 15:48:00 97 /min [facility] Arterial blood by Pulse oximetry Respitory Rate 2020-08-30 13:00:00 Memori al Marty Systolic (mm Hg) 2020-08-30 13:00:00 Caesar rial Marty Diastolic (mm Hg) 2020-08-30 13:00:00 Mem orial Hollis Systolic (mm Hg) 2020-08-30 11:00:00 Caesar rial Marty Diastolic (mm Hg) 2020-08-30 11:00:00 Mem orial [place]is Temperature Oral (F) 2020-08-30 11:00:00 98.4 F [facility] Respitory Rate 2020-08-30 11:00:00 Memori al Hollis Respitory Rate 2020-08-30 10:00:00 Memori al Hollis Systolic (mm Hg) 2020-08-30 10:00:00 Caesar rial [place] Diastolic (mm Hg) 2020-08-30 10:00:00 Mem orial [place]is Temperature Oral (F) 2020-08-30 00:00:00 96.9 F [facility] Temperature Oral (F) 2020-08-29 11:26:00 97.6 F Claude Ferguson Height 2020-08-29 10:30:00 162.56 cm [facility] Weight 2020-08-29 10:30:00 [facility] BMI Calculated 2020-08-29 10:30:00 Darien Hammond Procedures Procedure Date / Time Performing Clinician Source Performed URINALYSIS 2022-05-10 19:36:00 Home [facility] TROPONIN I 2022-05-10 18:34:00 Home [facility] COMP. METABOLIC PANEL 2022-05-10 18:34:00 Home [facility] ([id number]) [facility] CBC WITH DIFF 2022-05-10 18:34:00 Home [facility] XR CHEST 2 VW 2022-05-10 17:24:58 Byron Home [facility] CONSENT/REFUSAL FOR 2022-05-10 16:26:23 Doctor Unassigned, [facility] DIAGNOSIS AND TREATMENT [place] [facility] CONSENT/REFUSAL FOR 2022-05-10 16:26:09 Doctor Unassigned, [facility] DIAGNOSIS AND TREATMENT [place] [facility] URINALYSIS 2022-05-08 22:43:00 Theresa Hickman [facility] XR CHEST 2 VW 2022-05-06 22:56:53 Anette Olea [facility] COMP. METABOLIC PANEL 2022-05-06 22:14:00 Anette Olea [facility] ([id number]) Medical Neal CBC WITH DIFF 2022-05-06 22:14:00 Anette Olea [facility] COVID-19 (ID NOW RAPID 2022-05-06 22:14:00 Anette Olea [facility] TESTING) Medical Branch BASIC METABOLIC PANEL (NA, 2022-04-22 21:23:00 Paulette Gray [facility] K, CL, CO2, GLUCOSE, BUN, Medica l Branch CREATININE, [place]) CBC WITH DIFF 2022-04-22 21:23:00 Paulette Gray [facility] CONSENT/REFUSAL FOR 2022-04-22 19:45:46 Doctor Unassigned, [facility] DIAGNOSIS AND TREATMENT [place] [facility] Branch SARS-COV-2 COVID-19 2022-03-05 16:09:27 [facility] DIMITRIS-SUCROSE VACCINE [address] [place] [address] YRS+, BIVALENT 0.3ML, IM, (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) FLU 2022-03-05 16:09:27 [facility] VACC(),65+YR,0.5 Medica l Branch ML,IM,ADJUVANTED,QUAD(FLUA D) FLU 2022-03-05 16:09:27 [facility] VACC(),65+YR,0.5 Medica l Branch ML,IM,ADJUVANTED,QUAD(FLUA D) SARS-COV-2 COVID-19 2022-03-05 16:09:27 [facility] DIMITRIS-SUCROSE VACCINE [address] [place] [address] YRS+, BIVALENT 0.3ML, IM, (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) MAGNESIUM 2022-02-15 09:41:00 Radha Sofia [facility] BASIC METABOLIC PANEL (NA, 2022-02-15 09:41:00 Radha [facility] K, CL, CO2, GLUCOSE, BUN, Medica l Branch CREATININE, CA) CBC WITH DIFF 2022-02-15 09:41:00 Radha [facility] N-TERMINAL PRO-BNP 2022-02-15 09:41:00 Radha Sofia [facility] CBC WITH DIFF 2022-02-15 09:41:00 Radha Sofia [facility] BASIC METABOLIC PANEL (NA, 2022-02-15 09:41:00 Radha Sofia [facility] K, CL, CO2, GLUCOSE, BUN, Medica l Branch CREATININE, CA) MAGNESIUM 2022-02-15 09:41:00 Radha [facility] N-TERMINAL PRO-BNP 2022-02-15 09:41:00 Sofia Garcia [facility] BASIC METABOLIC PANEL (NA, 2022-02-13 09:40:00 [facility], CO2, GLUCOSE, BUN, Medica l Branch CREATININE, CA) CBC WITH DIFF 2022-02-13 09:40:00 [facility] (NA, 2022-02-13 09:40:00 [facility], CL, CO2, GLUCOSE, BUN, Medica l Branch CREATININE, CA) CBC WITH DIFF 2022-02-13 09:40:00 Radha [facility] TROPONIN I 2022-02-11 23:41:00 Radha [facility] N-TERMINAL PRO-BNP 2022-02-11 23:41:00 Sofia Garcia [facility] TROPONIN I 2022-02-11 23:41:00 Radha [facility] N-TERMINAL PRO-BNP 2022-02-11 23:41:00 Sofia Garcia [facility] HB ECG ROUTINE & RHYTHM 2022-02-11 22:15:36 Sofia Garcia Uni versity [facility] STRIP [facility] TRANSTHORACIC ECHO (TTE) 2022-02-11 21:26:50 Sofia Garcia Un iversity [facility] TRANSTHORACIC ECHO (TTE) 2022-02-11 21:26:50 Sofia Garcia Un iversity [facility] CT ABDOMEN PELVIS W 2022-02-11 07:45:43 Reilly Means [facility] CT ABDOMEN PELVIS W 2022-02-11 07:45:43 Reilly Means [facility] CONTRAST [facility] RAPID INFLUENZA A/B 2022-02-11 06:54:00 Reilly Means [facility] RAPID INFLUENZA A/B 2022-02-11 06:54:00 Reilly Means [facility] URINALYSIS 2022-02-11 06:45:00 Reilly Means o [facility] URINE CULTURE 2022-02-11 06:45:00 Reilly Means [place] [facility] URINALYSIS 2022-02-11 06:45:00 Reilyl Means [facility] URINE CULTURE 2022-02-11 06:45:00 Reilly Means [facility] HB ECG ROUTINE & RHYTHM 2022-02-11 05:22:08 Reilly Means [facility] HB ECG ROUTINE & RHYTHM 2022-02-11 05:22:08 Reilly Means [facility] BLOOD CULTURE SCREEN 2022-02-11 04:58:00 Reilly Means [facility] TROPONIN I 2022-02-11 04:58:00 Reilly Means [facility] COMP. METABOLIC PANEL 2022-02-11 04:58:00 Reilly Means [facility] ([id number]) Medical Branch CBC WITH DIFF 2022-02-11 04:58:00 Reilly Means [facility] PROTHROMBIN TIME / INR 2022-02-11 04:58:00 Reilly Means [facility] ACTIVATED PARTIAL THRMPLAS 2022-02-11 04:58:00 Reilly Means [facility] N-TERMINAL PRO-BNP 2022-02-11 04:58:00 Reilly Means [facility] LACTIC ACID WHOLE BLOOD 2022-02-11 04:58:00 Reilly Means [facility] COVID-19 (ID NOW RAPID 2022-02-11 04:58:00 Reilly Means [facility] TESTING) Medical Branch LAB ONLY COVID 2022-02-11 04:58:00 Reilly Means [facility] INTERPRETATION [facility] CBC WITH DIFF 2022-02-11 04:58:00 Reilly Maens [facility] ACTIVATED PARTIAL THRMPLAS 2022-02-11 04:58:00 Reilly Means [facility] PROTHROMBIN TIME / INR 2022-02-11 04:58:00 Reilly Means [facility] COVID-19 (ID NOW RAPID 2022-02-11 04:58:00 Reilly Means [facility] TESTING) Medical Branch COMP. METABOLIC PANEL 2022-02-11 04:58:00 Reilly Means [facility] ([id number]) Medical Branch TROPONIN I 2022-02-11 04:58:00 Miguelangel [facility] N-TERMINAL PRO-BNP 2022-02-11 04:58:00 Reilly Means [facility] BLOOD CULTURE SCREEN 2022-02-11 04:58:00 Reilly Means [facility] LACTIC ACID WHOLE BLOOD 2022-02-11 04:58:00 Reilly Means [facility] LAB ONLY COVID 2022-02-11 04:58:00 Reilly Means [facility] INTERPRETATION [facility] XR CHEST 1 VW 2022-02-11 [facility]:27[facility] 2022-02-11 04:27:42 Miguelangel Reilly [facility] HOSPITAL ADMISSION 2022-02-10 05:01:00 Doctor Unassigned, [facility] HOSPITAL ADMISSION 2022-02-10 05:01:00 Doctor Unassigned, [facility] ECG 12-LEAD 2021-07-14 15:14:00 Elan Lira [facility] [id number] 2021-06-17 00:00:00 RASSA [facility] GASTROINTESTINAL PANEL 2020-12-08 22:21:00 Eliseo Arce [facility] XR ABDOMEN 1 2020-12-08 18:06:32 Eliseo Arce spital OR [place] < 1 HOUR 2020-09-05 22:39:00 Eliseo Arce spital SURGICAL PATHOLOGY REQUEST 2020-09-05 21:54:00 Eliseo Arce [facility] XR CHEST 1 VW PORTABLE 2020-09-05 19:55:00 Jailyn [facility] DISCHARGE PATIENT 2020-09-05 17:27:55 Lucas Harris [facility] [place] AN ELECTIVE 2020-09-05 16:47:23 [facility]GD, INTRAOPERATIVE 2020-09-05 16:27[facility] 2020-09-05 15:04:00 Sarai Maharaj [facility] TIME (PTT) M. PROTHROMBIN TIME WITH INR 2020-09-05 15:04:00 Mindy Maharaj [facility] MChelsie Plan of Care Planned Activity Planned Date Details Comments Source Future Scheduled 2022-09-10 SHINGLES VACCINES (1 Met [facility] Test 15:06:53 of 2) [code = SHINGLES VACCINES (1 of 2)] Future Scheduled 2022-09-10 BREAST CANCER [facility] Test 15:06:53 SCREENING [code = BREAST CANCER SCREENING] Future Scheduled 2022-09-10 COLONOSCOPY SCREENING [facility] Test 15:06:53 [code = COLONOSCOPY SCREENING] Future Scheduled 2022-09-10 HEPATITIS B VACCINES Met [facility] Test 15:06:53 (1 of 3 - Risk 3-dose series) [code = HEPATITIS B VACCINES (1 of 3 - Risk 3-dose series)] Future Scheduled 2022-09-10 COVID-19 VACCINE (3 - [facility] Test 15:06:53 Booster for Pfizer series) [code = COVID-19 VACCINE (3 - Booster for Pfizer series)] Future Scheduled 2022-09-10 65+ PNEUMOCOCCAL [facility] Test 15:06:53 VACCINE (4 - PPSV23 if available, else PCV20) [code = 65+ PNEUMOCOCCAL VACCINE (4 - PPSV23 if available, else PCV20)] Future Scheduled 2022-09-10 INFLUENZA VACCINE Method [facility] Test 15:06:53 [code = INFLUENZA VACCINE] Future Scheduled 2022-09-10 SHINGLES VACCINES (1 Met [facility] Test 15:06:53 of 2) [code = SHINGLES VACCINES (1 of 2)] Future Scheduled 2022-09-10 BREAST CANCER [facility] Test 15:06:53 SCREENING [code = BREAST CANCER SCREENING] Future Scheduled 2022-09-10 COLONOSCOPY SCREENING [facility] Test 15:06:53 [code = COLONOSCOPY SCREENING] Future Scheduled 2022-09-10 HEPATITIS B VACCINES Met [facility] Test 15:06:53 (1 of 3 - Risk 3-dose series) [code = HEPATITIS B VACCINES (1 of 3 - Risk 3-dose series)] Future Scheduled 2022-09-10 COVID-19 VACCINE (3 - [facility] Test 15:06:53 Booster for Pfizer series) [code = COVID-19 VACCINE (3 - Booster for Pfizer series)] Future Scheduled 2022-09-10 65+ [facility]CCAL [facility]:06[facility]53 VACCINE (4 - PPSV23 if available, else PCV20) [code = 65+ PNEUMOCOCCAL VACCINE (4 - PPSV23 if available, else PCV20)] Future Scheduled 2022-09-10 INFLUENZA VACCINE Method [facility] Test 15:06:53 [code = INFLUENZA VACCINE] Future Scheduled 2022-09-10 SHINGLES VACCINES (1 Met [facility] Test 15:06:53 of 2) [code = SHINGLES VACCINES (1 of 2)] Future Scheduled 2022-09-10 BREAST CANCER [facility] Test 15:06:53 SCREENING [code = BREAST CANCER SCREENING] Future Scheduled 2022-09-10 COLONOSCOPY SCREENING [facility] Test 15:06:53 [code = COLONOSCOPY SCREENING] Future Scheduled 2022-09-10 HEPATITIS B VACCINES Met [facility] Test 15:06:53 (1 of 3 - Risk 3-dose series) [code = HEPATITIS B VACCINES (1 of 3 - Risk 3-dose series)] Future Scheduled 2022-09-10 COVID-19 VACCINE (3 - Me [facility] Test 15:06:53 Booster for Pfizer series) [code = COVID-19 VACCINE (3 - Booster for Pfizer series)] Future Scheduled 2022-09-10 65+ [facility]OCOCCAL [facility] Test 15:06:53 VACCINE (4 - PPSV23 if available, else PCV20) [code = 65+ PNEUMOCOCCAL VACCINE (4 - PPSV23 if available, else PCV20)] Future Scheduled 2022-09-10 INFLUENZA VACCINE Method [facility] Test 15:06:53 [code = INFLUENZA VACCINE] Future Scheduled 2022-09-10 SHINGLES VACCINES (1 Met [facility] Test 15:06:53 of 2) [code = SHINGLES VACCINES (1 of 2)] Future Scheduled 2022-09-10 BREAST CANCER [facility] Test 15:06:53 SCREENING [code = BREAST CANCER SCREENING] Future Scheduled 2022-09-10 COLONOSCOPY SCREENING [facility] Test 15:06:53 [code = COLONOSCOPY SCREENING] Future Scheduled 2022-09-10 HEPATITIS B VACCINES Met [facility] Test 15:06:53 (1 of 3 - Risk 3-dose series) [code = HEPATITIS B VACCINES (1 of 3 - Risk 3-dose series)] Future Scheduled 2022-09-10 COVID-19 VACCINE (3 - Me [facility] Test 15:06:53 Booster for Pfizer series) [code = COVID-19 VACCINE (3 - Booster for Pfizer series)] Future Scheduled 2022-09-10 65+ PNEUMOCOCCAL [facility] Test 15:06:53 VACCINE (4 - PPSV23 if available, else PCV20) [code = 65+ PNEUMOCOCCAL VACCINE (4 - PPSV23 if available, else PCV20)] Future Scheduled 2022-09-10 INFLUENZA VACCINE Method [facility] Test 15:06:53 [code = INFLUENZA VACCINE] Future Scheduled 2022-09-10 SHINGLES VACCINES (1 Met [facility] Test 15:06:53 of 2) [code = SHINGLES VACCINES (1 of 2)] Future Scheduled 2022-09-10 BREAST CANCER [facility] Test 15:06:53 SCREENING [code = BREAST CANCER SCREENING] Future Scheduled 2022-09-10 COLONOSCOPY SCREENING [facility] Test 15:06:53 [code = COLONOSCOPY SCREENING] Future Scheduled 2022-09-10 HEPATITIS B VACCINES Met [facility] Test 15:06:53 (1 of 3 - Risk 3-dose series) [code = HEPATITIS B VACCINES (1 of 3 - Risk 3-dose series)] Future Scheduled 2022-09-10 COVID-19 VACCINE (3 - [facility] Test 15:06:53 Booster for Pfizer series) [code = COVID-19 VACCINE (3 - Booster for Pfizer series)] Future Scheduled 2022-09-10 65+ [facility] 15:06:53 VACCINE (4 - PPSV23 if available, else PCV20) [code = 65+ PNEUMOCOCCAL VACCINE (4 - PPSV23 if available, else PCV20)] Future Scheduled 2022-09-10 INFLUENZA VACCINE Method [facility] Test 15:06:53 [code = INFLUENZA VACCINE] Future Scheduled 2022-09-10 SHINGLES VACCINES (1 Met [facility] Test 15:06:53 of 2) [code = SHINGLES VACCINES (1 of 2)] Future Scheduled 2022-09-10 BREAST CANCER [facility] Test 15:06:53 SCREENING [code = BREAST CANCER SCREENING] Future Scheduled 2022-09-10 COLONOSCOPY SCREENING [facility] Test 15:06:53 [code = COLONOSCOPY SCREENING] Future Scheduled 2022-09-10 HEPATITIS B VACCINES Met [facility] Test 15:06:53 (1 of 3 - Risk 3-dose series) [code = HEPATITIS B VACCINES (1 of 3 - Risk 3-dose series)] Future Scheduled 2022-09-10 COVID-19 VACCINE (3 - [facility] Test 15:06:53 Booster for Pfizer series) [code = COVID-19 VACCINE (3 - Booster for Pfizer series)] Future Scheduled 2022-09-10 65+ [facility]AL [facility] Test 15:06:53 VACCINE (4 - PPSV23 if available, else PCV20) [code = 65+ PNEUMOCOCCAL VACCINE (4 - PPSV23 if available, else PCV20)] Future Scheduled 2022-09-10 INFLUENZA VACCINE Method [facility] Test 15:06:53 [code = INFLUENZA VACCINE] Future Scheduled 2022-08-26 SHINGLES VACCINES (1 Met [facility] Test 14:43:48 of 2) [code = SHINGLES VACCINES (1 of 2)] Future Scheduled 2022-08-26 BREAST CANCER [facility] Test 14:43:48 SCREENING [code = BREAST CANCER SCREENING] Future Scheduled 2022-08-26 COLONOSCOPY SCREENING [facility] Test 14:43:48 [code = COLONOSCOPY SCREENING] Future Scheduled 2022-08-26 HEPATITIS B VACCINES Met [facility] Test 14:43:48 (1 of 3 - Risk 3-dose series) [code = HEPATITIS B VACCINES (1 of 3 - Risk 3-dose series)] Future Scheduled 2022-08-26 COVID-19 VACCINE (3 - Me [facility] Test 14:43:48 Booster for Pfizer series) [code = COVID-19 VACCINE (3 - Booster for Pfizer series)] Future Scheduled 2022-08-26 65+ [facility] 14:43:48 VACCINE (4 - PPSV23 if available, else PCV20) [code = 65+ PNEUMOCOCCAL VACCINE (4 - PPSV23 if available, else PCV20)] Future Scheduled 2022-08-26 INFLUENZA VACCINE Method [facility] Test 14:43:48 [code = INFLUENZA VACCINE] Future Scheduled 2022-08-07 SHINGLES VACCINES (1 Met [facility] Test 23:30:11 of 2) [code = SHINGLES VACCINES (1 of 2)] Future Scheduled 2022-08-07 BREAST CANCER [facility] Test 23:30:11 SCREENING [code = BREAST CANCER SCREENING] Future Scheduled 2022-08-07 COLONOSCOPY SCREENING [facility] Test 23:30:11 [code = COLONOSCOPY SCREENING] Future Scheduled 2022-08-07 HEPATITIS B VACCINES Met [facility] Test 23:30:11 (1 of 3 - Risk 3-dose series) [code = HEPATITIS B VACCINES (1 of 3 - Risk 3-dose series)] Future Scheduled 2022-08-07 COVID-19 VACCINE (3 - [facility] Test 23:30:11 Booster for Pfizer series) [code = COVID-19 VACCINE (3 - Booster for Pfizer series)] Future Scheduled 2022-08-07 65+ PNEUMOCOCCAL [facility] Test 23:30:11 VACCINE (4 - PPSV23 if available, else PCV20) [code = 65+ PNEUMOCOCCAL VACCINE (4 - PPSV23 if available, else PCV20)] Future Scheduled 2022-08-07 INFLUENZA VACCINE Method [facility] Test 23:30:11 [code = INFLUENZA VACCINE] Future Scheduled 2022-08-07 SHINGLES VACCINES (1 Met [facility] Test 23:30:11 of 2) [code = SHINGLES VACCINES (1 of 2)] Future Scheduled 2022-08-07 BREAST CANCER [facility] Test 23:30:11 SCREENING [code = BREAST CANCER SCREENING] Future Scheduled 2022-08-07 COLONOSCOPY SCREENING [facility] Test 23:30:11 [code = COLONOSCOPY SCREENING] Future Scheduled 2022-08-07 HEPATITIS B VACCINES Met [facility] Test 23:30:11 (1 of 3 - Risk 3-dose series) [code = HEPATITIS B VACCINES (1 of 3 - Risk 3-dose series)] Future Scheduled 2022-08-07 COVID-19 VACCINE (3 - [facility] Test 23:30:11 Booster for Pfizer series) [code = COVID-19 VACCINE (3 - Booster for Pfizer series)] Future Scheduled 2022-08-07 65+ [facility]CCAL [facility] Test 23:30:11 VACCINE (4 - PPSV23 if available, else PCV20) [code = 65+ PNEUMOCOCCAL VACCINE (4 - PPSV23 if available, else PCV20)] Future Scheduled 2022-08-07 INFLUENZA VACCINE Method [facility] Test 23:30:11 [code = INFLUENZA VACCINE] Future Scheduled 2022-08-06 SHINGLES VACCINES (1 Met [facility] Test 15:48:02 of 2) [code = SHINGLES VACCINES (1 of 2)] Future Scheduled 2022-08-06 BREAST CANCER [facility] Test 15:48:02 SCREENING [code = BREAST CANCER SCREENING] Future Scheduled 2022-08-06 COLONOSCOPY SCREENING [facility] Test 15:48:02 [code = COLONOSCOPY SCREENING] Future Scheduled 2022-08-06 HEPATITIS B VACCINES Met [facility] Test 15:48:02 (1 of 3 - Risk 3-dose series) [code = HEPATITIS B VACCINES (1 of 3 - Risk 3-dose series)] Future Scheduled 2022-08-06 COVID-19 VACCINE (3 - [facility] Test 15:48:02 Booster for Pfizer series) [code = COVID-19 VACCINE (3 - Booster for Pfizer series)] Future Scheduled 2022-08-06 65+ [facility] 15:48:02 VACCINE (4 - PPSV23 if available, else PCV20) [code = 65+ PNEUMOCOCCAL VACCINE (4 - PPSV23 if available, else PCV20)] Future Scheduled 2022-08-06 INFLUENZA VACCINE Method [facility] Test 15:48:02 [code = INFLUENZA VACCINE] Future Scheduled 2022-06-11 SHINGLES VACCINES (1 Met [facility] Test 16:10:12 of 2) [code = SHINGLES VACCINES (1 of 2)] Future Scheduled 2022-06-11 BREAST CANCER [facility] Test 16:10:12 SCREENING [code = BREAST CANCER SCREENING] Future Scheduled 2022-06-11 COLONOSCOPY SCREENING [facility] Test 16:10:12 [code = COLONOSCOPY SCREENING] Future Scheduled 2022-06-11 HEPATITIS B VACCINES Met [facility] Test 16:10:12 (1 of 3 - Risk 3-dose series) [code = HEPATITIS B VACCINES (1 of 3 - Risk 3-dose series)] Future Scheduled 2022-06-11 COVID-19 VACCINE (3 - [facility] Test 16:10:12 Booster for Pfizer series) [code = COVID-19 VACCINE (3 - Booster for Pfizer series)] Future Scheduled 2022-06-11 65+ [facility] 16:10:12 VACCINE (4 - PPSV23 if available, else PCV20) [code = 65+ PNEUMOCOCCAL VACCINE (4 - PPSV23 if available, else PCV20)] Future Scheduled 2022-06-11 INFLUENZA VACCINE Method [facility] Test 16:10:12 [code = INFLUENZA VACCINE] Future Scheduled 2022-06-11 SHINGLES VACCINES (1 Met [facility] Test 16:10:12 of 2) [code = SHINGLES VACCINES (1 of 2)] Future Scheduled 2022-06-11 BREAST CANCER [facility] Test 16:10:12 SCREENING [code = BREAST CANCER SCREENING] Future Scheduled 2022-06-11 COLONOSCOPY SCREENING [facility] Test 16:10:12 [code = COLONOSCOPY SCREENING] Future Scheduled 2022-06-11 HEPATITIS B VACCINES Met [facility] Test 16:10:12 (1 of 3 - Risk 3-dose series) [code = HEPATITIS B VACCINES (1 of 3 - Risk 3-dose series)] Future Scheduled 2022-06-11 COVID-19 VACCINE (3 - [facility] Test 16:10:12 Booster for Pfizer series) [code = COVID-19 VACCINE (3 - Booster for Pfizer series)] Future Scheduled 2022-06-11 65+ [facility]CCAL [facility] Test 16:10:12 VACCINE (4 - PPSV23 if available, else PCV20) [code = 65+ PNEUMOCOCCAL VACCINE (4 - PPSV23 if available, else PCV20)] Future Scheduled 2022-06-11 INFLUENZA VACCINE Method [facility] Test 16:10:12 [code = INFLUENZA VACCINE] Future Scheduled 2022-06-11 SHINGLES VACCINES (1 Met [facility] Test 16:10:12 of 2) [code = SHINGLES VACCINES (1 of 2)] Future Scheduled 2022-06-11 BREAST CANCER [facility] Test 16:10:12 SCREENING [code = BREAST CANCER SCREENING] Future Scheduled 2022-06-11 COLONOSCOPY SCREENING [facility] Test 16:10:12 [code = COLONOSCOPY SCREENING] Future Scheduled 2022-06-11 HEPATITIS B VACCINES Met [facility] Test 16:10:12 (1 of 3 - Risk 3-dose series) [code = HEPATITIS B VACCINES (1 of 3 - Risk 3-dose series)] Future Scheduled 2022-06-11 COVID-19 VACCINE (3 - [facility] Test 16:10:12 Booster for Pfizer series) [code = COVID-19 VACCINE (3 - Booster for Pfizer series)] Future Scheduled 2022-06-11 65+ [facility] 16:10:12 VACCINE (4 - PPSV23 if available, else PCV20) [code = 65+ PNEUMOCOCCAL VACCINE (4 - PPSV23 if available, else PCV20)] Future Scheduled 2022-06-11 INFLUENZA VACCINE Method [facility] Test 16:10:12 [code = INFLUENZA VACCINE] Future Scheduled 2022-06-11 SHINGLES VACCINES (1 Met [facility] Test 16:10:12 of 2) [code = SHINGLES VACCINES (1 of 2)] Future Scheduled 2022-06-11 BREAST CANCER [facility] Test 16:10:12 SCREENING [code = BREAST CANCER SCREENING] Future Scheduled 2022-06-11 COLONOSCOPY SCREENING Me [facility] Test 16:10:12 [code = COLONOSCOPY SCREENING] Future Scheduled 2022-06-11 HEPATITIS B VACCINES Met [facility] Test 16:10:12 (1 of 3 - Risk 3-dose series) [code = HEPATITIS B VACCINES (1 of 3 - Risk 3-dose series)] Future Scheduled 2022-06-11 COVID-19 VACCINE (3 - [facility] Test 16:10:12 Booster for Pfizer series) [code = COVID-19 VACCINE (3 - Booster for Pfizer series)] Future Scheduled 2022-06-11 65+ [facility] 16:10:12 VACCINE (4 - PPSV23 if available, else PCV20) [code = 65+ PNEUMOCOCCAL VACCINE (4 - PPSV23 if available, else PCV20)] Future Scheduled 2022-06-11 INFLUENZA VACCINE Method [facility] Test 16:10:12 [code = INFLUENZA VACCINE] Future Scheduled 2022-06-11 SHINGLES VACCINES (1 Met [facility] Test 16:10:12 of 2) [code = SHINGLES VACCINES (1 of 2)] Future Scheduled 2022-06-11 BREAST CANCER [facility] Test 16:10:12 SCREENING [code = BREAST CANCER SCREENING] Future Scheduled 2022-06-11 COLONOSCOPY SCREENING [facility] Test 16:10:12 [code = COLONOSCOPY SCREENING] Future Scheduled 2022-06-11 HEPATITIS B VACCINES Met [facility] Test 16:10:12 (1 of 3 - Risk 3-dose series) [code = HEPATITIS B VACCINES (1 of 3 - Risk 3-dose series)] Future Scheduled 2022-06-11 COVID-19 VACCINE (3 - Me [facility] Test 16:10:12 Booster for Pfizer series) [code = COVID-19 VACCINE (3 - Booster for Pfizer series)] Future Scheduled 2022-06-11 65+ [facility]CCAL [facility] Test 16:10:12 VACCINE (4 - PPSV23 if available, else PCV20) [code = 65+ PNEUMOCOCCAL VACCINE (4 - PPSV23 if available, else PCV20)] Future Scheduled 2022-06-11 INFLUENZA VACCINE Method [facility] Test 16:10:12 [code = INFLUENZA VACCINE] Future Scheduled 2022-06-11 SHINGLES VACCINES (1 Met [facility] Test 16:10:12 of 2) [code = SHINGLES VACCINES (1 of 2)] Future Scheduled 2022-06-11 BREAST CANCER [facility] Test 16:10:12 SCREENING [code = BREAST CANCER SCREENING] Future Scheduled 2022-06-11 COLONOSCOPY SCREENING [facility] Test 16:10:12 [code = COLONOSCOPY SCREENING] Future Scheduled 2022-06-11 HEPATITIS B VACCINES Met [facility] Test 16:10:12 (1 of 3 - Risk 3-dose series) [code = HEPATITIS B VACCINES (1 of 3 - Risk 3-dose series)] Future Scheduled 2022-06-11 COVID-19 VACCINE (3 - [facility] Test 16:10:12 Booster for Pfizer series) [code = COVID-19 VACCINE (3 - Booster for Pfizer series)] Future Scheduled 2022-06-11 65+ [facility]CCAL [facility] Test 16:10:12 VACCINE (4 - PPSV23 if available, else PCV20) [code = 65+ PNEUMOCOCCAL VACCINE (4 - PPSV23 if available, else PCV20)] Future Scheduled 2022-06-11 INFLUENZA VACCINE Method [facility] Test 16:10:12 [code = INFLUENZA VACCINE] Future Scheduled 2022-06-11 SHINGLES VACCINES (1 Met [facility] Test 16:10:12 of 2) [code = SHINGLES VACCINES (1 of 2)] Future Scheduled 2022-06-11 BREAST CANCER [facility] Test 16:10:12 SCREENING [code = BREAST CANCER SCREENING] Future Scheduled 2022-06-11 COLONOSCOPY SCREENING [facility] Test 16:10:12 [code = COLONOSCOPY SCREENING] Future Scheduled 2022-06-11 HEPATITIS B VACCINES Met [facility] Test 16:10:12 (1 of 3 - Risk 3-dose series) [code = HEPATITIS B VACCINES (1 of 3 - Risk 3-dose series)] Future Scheduled 2022-06-11 COVID-19 VACCINE (3 - Me [facility] Test 16:10:12 Booster for Pfizer series) [code = COVID-19 VACCINE (3 - Booster for Pfizer series)] Future Scheduled 2022-06-11 65+ [facility]CCAL [facility] Test 16:10:12 VACCINE (4 - PPSV23 if available, else PCV20) [code = 65+ PNEUMOCOCCAL VACCINE (4 - PPSV23 if available, else PCV20)] Future Scheduled 2022-06-11 INFLUENZA VACCINE Method [facility] Test 16:10:12 [code = INFLUENZA VACCINE] Future Scheduled 2022-06-11 SHINGLES VACCINES (1 Met [facility] Test 16:10:12 of 2) [code = SHINGLES VACCINES (1 of 2)] Future Scheduled 2022-06-11 BREAST CANCER [facility] Test 16:10:12 SCREENING [code = BREAST CANCER SCREENING] Future Scheduled 2022-06-11 COLONOSCOPY SCREENING [facility] Test 16:10:12 [code = COLONOSCOPY SCREENING] Future Scheduled 2022-06-11 HEPATITIS B VACCINES Met [facility] Test 16:10:12 (1 of 3 - Risk 3-dose series) [code = HEPATITIS B VACCINES (1 of 3 - Risk 3-dose series)] Future Scheduled 2022-06-11 COVID-19 VACCINE (3 - [facility] Test 16:10:12 Booster for Pfizer series) [code = COVID-19 VACCINE (3 - Booster for Pfizer series)] Future Scheduled 2022-06-11 65+ [facility] 16:10:12 VACCINE (4 - PPSV23 if available, else PCV20) [code = 65+ PNEUMOCOCCAL VACCINE (4 - PPSV23 if available, else PCV20)] Future Scheduled 2022-06-11 INFLUENZA VACCINE Method [facility] Test 16:10:12 [code = INFLUENZA VACCINE] Future Scheduled 2022-06-11 SHINGLES VACCINES (1 Met [facility] Test 16:10:12 of 2) [code = SHINGLES VACCINES (1 of 2)] Future Scheduled 2022-06-11 BREAST CANCER [facility] Test 16:10:12 SCREENING [code = BREAST CANCER SCREENING] Future Scheduled 2022-06-11 COLONOSCOPY SCREENING [facility] Test 16:10:12 [code = COLONOSCOPY SCREENING] Future Scheduled 2022-06-11 HEPATITIS B VACCINES Met [facility] Test 16:10:12 (1 of 3 - Risk 3-dose series) [code = HEPATITIS B VACCINES (1 of 3 - Risk 3-dose series)] Future Scheduled 2022-06-11 COVID-19 VACCINE (3 - Me [facility] Test 16:10:12 Booster for Pfizer series) [code = COVID-19 VACCINE (3 - Booster for Pfizer series)] Future Scheduled 2022-06-11 65+ [facility] 16:10:12 VACCINE (4 - PPSV23 if available, else PCV20) [code = 65+ PNEUMOCOCCAL VACCINE (4 - PPSV23 if available, else PCV20)] Future Scheduled 2022-06-11 INFLUENZA VACCINE [facility] Test 16:10:12 [code = INFLUENZA VACCINE] Future Scheduled 2022-05-10 SHINGLES VACCINES (1 Met [facility] Test 10:21:35 of 2) [code = SHINGLES VACCINES (1 of 2)] Future Scheduled 2022-05-10 BREAST CANCER [facility] Test 10:21:35 SCREENING [code = BREAST CANCER SCREENING] Future Scheduled 2022-05-10 COLONOSCOPY SCREENING [facility] Test 10:21:35 [code = COLONOSCOPY SCREENING] Future Scheduled 2022-05-10 HEPATITIS B VACCINES Met [facility] Test 10:21:35 (1 of 3 - Risk 3-dose series) [code = HEPATITIS B VACCINES (1 of 3 - Risk 3-dose series)] Future Scheduled 2022-05-10 COVID-19 VACCINE (3 - [facility] Test 10:21:35 Booster for Pfizer series) [code = COVID-19 VACCINE (3 - Booster for Pfizer series)] Future Scheduled 2022-05-10 65+ [facility] 10:21:35 VACCINE (4 - PPSV23 if available, else PCV20) [code = 65+ PNEUMOCOCCAL VACCINE (4 - PPSV23 if available, else PCV20)] Future Scheduled 2022-05-10 INFLUENZA VACCINE [facility] Test 10:21:35 [code = INFLUENZA VACCINE] Future Scheduled 2022-05-10 SHINGLES VACCINES (1 Met [facility] Test 10:21:35 of 2) [code = SHINGLES VACCINES (1 of 2)] Future Scheduled 2022-05-10 BREAST CANCER [facility] Test 10:21:35 SCREENING [code = BREAST CANCER SCREENING] Future Scheduled 2022-05-10 COLONOSCOPY SCREENING [facility] Test 10:21:35 [code = COLONOSCOPY SCREENING] Future Scheduled 2022-05-10 HEPATITIS B VACCINES Met [facility] Test 10:21:35 (1 of 3 - Risk 3-dose series) [code = HEPATITIS B VACCINES (1 of 3 - Risk 3-dose series)] Future Scheduled 2022-05-10 COVID-19 VACCINE (3 - [facility] Test 10:21:35 Booster for Pfizer series) [code = COVID-19 VACCINE (3 - Booster for Pfizer series)] Future Scheduled 2022-05-10 65+ [facility] 10:21:35 VACCINE (4 - PPSV23 if available, else PCV20) [code = 65+ PNEUMOCOCCAL VACCINE (4 - PPSV23 if available, else PCV20)] Future Scheduled 2022-05-10 INFLUENZA VACCINE Method [facility] Test 10:21:35 [code = INFLUENZA VACCINE] Future Scheduled 2022-05-06 SHINGLES VACCINES (1 Met [facility] Test 14:03:13 of 2) [code = SHINGLES VACCINES (1 of 2)] Future Scheduled 2022-05-06 BREAST CANCER [facility] Test 14:03:13 SCREENING [code = BREAST CANCER SCREENING] Future Scheduled 2022-05-06 COLONOSCOPY SCREENING [facility] Test 14:03:13 [code = COLONOSCOPY SCREENING] Future Scheduled 2022-05-06 HEPATITIS B VACCINES Met [facility] Test 14:03:13 (1 of 3 - Risk 3-dose series) [code = HEPATITIS B VACCINES (1 of 3 - Risk 3-dose series)] Future Scheduled 2022-05-06 COVID-19 VACCINE (3 - [facility] Test 14:03:13 Booster for Pfizer series) [code = COVID-19 VACCINE (3 - Booster for Pfizer series)] Future Scheduled 2022-05-06 65+ PNEUMOCOCCAL [facility] Test 14:03:13 VACCINE (4 - PPSV23 if available, else PCV20) [code = 65+ PNEUMOCOCCAL VACCINE (4 - PPSV23 if available, else PCV20)] Future Scheduled 2022-05-06 INFLUENZA VACCINE Method [facility] Test 14:03:13 [code = INFLUENZA VACCINE] Future Scheduled 2022-04-30 SHINGLES VACCINES (1 Met [facility] Test 01:07:32 of 2) [code = SHINGLES VACCINES (1 of 2)] Future Scheduled 2022-04-30 BREAST CANCER [facility] Test 01:07:32 SCREENING [code = BREAST CANCER SCREENING] Future Scheduled 2022-04-30 COLONOSCOPY SCREENING [facility] Test 01:07:32 [code = COLONOSCOPY SCREENING] Future Scheduled 2022-04-30 HEPATITIS B VACCINES Met [facility] Test 01:07:32 (1 of 3 - Risk 3-dose series) [code = HEPATITIS B VACCINES (1 of 3 - Risk 3-dose series)] Future Scheduled 2022-04-30 COVID-19 VACCINE (3 - [facility] Test 01:07:32 Booster for Pfizer series) [code = COVID-19 VACCINE (3 - Booster for Pfizer series)] Future Scheduled 2022-04-30 65+ PNEUMOCOCCAL [facility] Test 01:07:32 VACCINE (4 - PPSV23 if available, else PCV20) [code = 65+ PNEUMOCOCCAL VACCINE (4 - PPSV23 if available, else PCV20)] Future Scheduled 2022-04-30 INFLUENZA VACCINE Method [facility] Test 01:07:32 [code = INFLUENZA VACCINE] Future Scheduled 2022-04-30 SHINGLES VACCINES (1 Met [facility] Test 01:07:32 of 2) [code = SHINGLES VACCINES (1 of 2)] Future Scheduled 2022-04-30 BREAST CANCER [facility] Test 01:07:32 SCREENING [code = BREAST CANCER SCREENING] Future Scheduled 2022-04-30 COLONOSCOPY SCREENING [facility] Test 01:07:32 [code = COLONOSCOPY SCREENING] Future Scheduled 2022-04-30 HEPATITIS B VACCINES Met [facility] Test 01:07:32 (1 of 3 - Risk 3-dose series) [code = HEPATITIS B VACCINES (1 of 3 - Risk 3-dose series)] Future Scheduled 2022-04-30 COVID-19 VACCINE (3 - [facility] Test 01:07:32 Booster for Pfizer series) [code = COVID-19 VACCINE (3 - Booster for Pfizer series)] Future Scheduled 2022-04-30 65+ PNEUMOCOCCAL [facility] Test 01:07:32 VACCINE (4 - PPSV23 if available, else PCV20) [code = 65+ PNEUMOCOCCAL VACCINE (4 - PPSV23 if available, else PCV20)] Future Scheduled 2022-04-30 INFLUENZA VACCINE Method [facility] Test 01:07:32 [code = INFLUENZA VACCINE] Future Scheduled 2022-04-30 SHINGLES VACCINES (1 Met [facility] Test 01:07:32 of 2) [code = SHINGLES VACCINES (1 of 2)] Future Scheduled 2022-04-30 BREAST CANCER [facility] Test 01:07:32 SCREENING [code = BREAST CANCER SCREENING] Future Scheduled 2022-04-30 COLONOSCOPY SCREENING [facility] Test 01:07:32 [code = COLONOSCOPY SCREENING] Future Scheduled 2022-04-30 HEPATITIS B VACCINES Met [facility] Test 01:07:32 (1 of 3 - Risk 3-dose series) [code = HEPATITIS B VACCINES (1 of 3 - Risk 3-dose series)] Future Scheduled 2022-04-30 COVID-19 VACCINE (3 - [facility] Test 01:07:32 Booster for Pfizer series) [code = COVID-19 VACCINE (3 - Booster for Pfizer series)] Future Scheduled 2022-04-30 65+ PNEUMOCOCCAL [facility] Test 01:07:32 VACCINE (4 - PPSV23 if available, else PCV20) [code = 65+ PNEUMOCOCCAL VACCINE (4 - PPSV23 if available, else PCV20)] Future Scheduled 2022-04-30 INFLUENZA VACCINE Method [facility] Test 01:07:32 [code = INFLUENZA VACCINE] Future Scheduled 2022-04-25 SHINGLES VACCINES (1 Met [facility] Test 01:45:02 of 2) [code = SHINGLES VACCINES (1 of 2)] Future Scheduled 2022-04-25 BREAST CANCER [facility] Test 01:45:02 SCREENING [code = BREAST CANCER SCREENING] Future Scheduled 2022-04-25 COLONOSCOPY SCREENING [facility] Test 01:45:02 [code = COLONOSCOPY SCREENING] Future Scheduled 2022-04-25 HEPATITIS B VACCINES Met [facility] Test 01:45:02 (1 of 3 - Risk 3-dose series) [code = HEPATITIS B VACCINES (1 of 3 - Risk 3-dose series)] Future Scheduled 2022-04-25 COVID-19 VACCINE (3 - Me [facility] Test 01:45:02 Booster for Pfizer series) [code = COVID-19 VACCINE (3 - Booster for Pfizer series)] Future Scheduled 2022-04-25 65+ PNEUMOCOCCAL [facility] Test 01:45:02 VACCINE (4 - PPSV23 if available, else PCV20) [code = 65+ PNEUMOCOCCAL VACCINE (4 - PPSV23 if available, else PCV20)] Future Scheduled 2022-04-25 INFLUENZA VACCINE Method [facility] Test 01:45:02 [code = INFLUENZA VACCINE] Future Scheduled 2022-03-25 SHINGLES VACCINES (1 Met [facility] Test 14:48:42 of 2) [code = SHINGLES VACCINES (1 of 2)] Future Scheduled 2022-03-25 BREAST CANCER [facility] Test 14:48:42 SCREENING [code = BREAST CANCER SCREENING] Future Scheduled 2022-03-25 COLONOSCOPY SCREENING [facility] Test 14:48:42 [code = COLONOSCOPY SCREENING] Future Scheduled 2022-03-25 HEPATITIS B VACCINES Met [facility] Test 14:48:42 (1 of 3 - Risk 3-dose series) [code = HEPATITIS B VACCINES (1 of 3 - Risk 3-dose series)] Future Scheduled 2022-03-25 COVID-19 VACCINE (3 - Me [facility] Test 14:48:42 Booster for Pfizer series) [code = COVID-19 VACCINE (3 - Booster for Pfizer series)] Future Scheduled 2022-03-25 65+ [facility] 14:[facility]:42 VACCINE (4 - PPSV23 if available, else PCV20) [code = 65+ PNEUMOCOCCAL VACCINE (4 - PPSV23 if available, else PCV20)] Future Scheduled 2022-03-25 INFLUENZA VACCINE Method [facility] Test 14:48:42 [code = INFLUENZA VACCINE] Future Scheduled 2022-03-25 SHINGLES VACCINES (1 Met [facility] Test 14:48:42 of 2) [code = SHINGLES VACCINES (1 of 2)] Future Scheduled 2022-03-25 BREAST CANCER [facility] Test 14:48:42 SCREENING [code = BREAST CANCER SCREENING] Future Scheduled 2022-03-25 COLONOSCOPY SCREENING [facility] Test 14:48:42 [code = COLONOSCOPY SCREENING] Future Scheduled 2022-03-25 HEPATITIS B VACCINES Met [facility] Test 14:48:42 (1 of 3 - Risk 3-dose series) [code = HEPATITIS B VACCINES (1 of 3 - Risk 3-dose series)] Future Scheduled 2022-03-25 COVID-19 VACCINE (3 - Me [facility] Test 14:48:42 Booster for [...] Future Scheduled 2022-03-25 SHINGLES VACCINES (1 Met [facility] Test 14:48:42 of 2) [code = SHINGLES VACCINES (1 of 2)] Future Scheduled 2022-03-25 BREAST CANCER [facility] Test 14:48:42 SCREENING [code = BREAST CANCER SCREENING] Future Scheduled 2022-03-25 COLONOSCOPY SCREENING [facility] Test 14:48:42 [code = COLONOSCOPY SCREENING] Future Scheduled 2022-03-25 HEPATITIS B VACCINES Met [facility] Test 14:48:42 (1 of 3 - Risk 3-dose series) [code = HEPATITIS B VACCINES (1 of 3 - Risk 3-dose series)] Future Scheduled 2022-03-25 COVID-19 VACCINE (3 - [facility] Test 14:48:42 Booster for Pfizer series) [code = COVID-19 VACCINE (3 - Booster for Pfizer series)] Future Scheduled 2022-03-25 65+ [facility] 14:48:42 VACCINE (4 - PPSV23 if available, else PCV20) [code = 65+ PNEUMOCOCCAL VACCINE (4 - PPSV23 if available, else PCV20)] Future Scheduled 2022-03-25 INFLUENZA VACCINE Method [facility] Test 14:48:42 [code = INFLUENZA VACCINE] Future Scheduled 2022-03-25 SHINGLES VACCINES (1 Met [facility] Test 14:48:42 of 2) [code = SHINGLES VACCINES (1 of 2)] Future Scheduled 2022-03-25 BREAST CANCER [facility] Test 14:48:42 SCREENING [code = BREAST CANCER SCREENING] Future Scheduled 2022-03-25 COLONOSCOPY SCREENING [facility] Test 14:48:42 [code = COLONOSCOPY SCREENING] Future Scheduled 2022-03-25 HEPATITIS B VACCINES Met [facility] Test 14:48:42 (1 of 3 - Risk 3-dose series) [code = HEPATITIS B VACCINES (1 of 3 - Risk 3-dose series)] Future Scheduled 2022-03-25 COVID-19 VACCINE (3 - [facility] Test 14:48:42 Booster for Pfizer series) [code [...] Future Scheduled 2022-03-25 SHINGLES VACCINES (1 Met [facility] Test 14:48:42 of 2) [code = SHINGLES VACCINES (1 of 2)] Future Scheduled 2022-03-25 BREAST CANCER [facility] Test 14:48:42 SCREENING [code = BREAST CANCER SCREENING] Future Scheduled 2022-03-25 COLONOSCOPY SCREENING [facility] Test 14:48:42 [code = COLONOSCOPY SCREENING] Future Scheduled 2022-03-25 HEPATITIS B VACCINES Met [facility] Test 14:48:42 (1 of 3 - Risk 3-dose series) [code = HEPATITIS B VACCINES (1 of 3 - Risk 3-dose series)] Future Scheduled 2022-03-25 COVID-19 VACCINE (3 - [facility] Test 14:48:42 Booster for Pfizer series) [code = COVID-19 VACCINE (3 - Booster for Pfizer series)] Future Scheduled 2022-03-25 65[facility] 14:48:42 VACCINE (4 - PPSV23 if available, else PCV20) [code = 65+ PNEUMOCOCCAL VACCINE (4 - PPSV23 if available, else PCV20)] Future Scheduled 2022-03-25 INFLUENZA VACCINE Method [facility] Test 14:48:42 [code = INFLUENZA VACCINE] Future Scheduled 2022-03-25 SHINGLES VACCINES (1 Met [facility] Test 14:48:42 of 2) [code = SHINGLES VACCINES (1 of 2)] Future Scheduled 2022-03-25 BREAST CANCER [facility] Test 14:48:42 SCREENING [code = BREAST CANCER SCREENING] Future Scheduled 2022-03-25 COLONOSCOPY SCREENING [facility] Test 14:48:42 [code = COLONOSCOPY SCREENING] Future Scheduled 2022-03-25 HEPATITIS B VACCINES Met [facility] Test 14:48:42 (1 of 3 - Risk 3-dose series) [code = HEPATITIS B VACCINES (1 of 3 - Risk 3-dose series)] Future Scheduled 2022-03-25 COVID-19 VACCINE (3 - [facility] Test 14:48:42 Booster for Pfizer series) [code = COVID-19 VACCINE (3 - Booster for Pfizer series)] Future Scheduled 2022-03-25 65+ [facility]42 VACCINE (4 - PPSV23 if available, else PCV20) [code = 65+ PNEUMOCOCCAL VACCINE (4 - PPSV23 if available, else PCV20)] Future Scheduled 2022-03-25 INFLUENZA VACCINE Method [facility] Test 14:48:42 [code = INFLUENZA VACCINE] Future Scheduled 2022-03-25 SHINGLES VACCINES (1 Met [facility] Test 14:48:42 of 2) [code = SHINGLES VACCINES (1 of 2)] Future Scheduled 2022-03-25 BREAST CANCER [facility] Test 14:48:42 SCREENING [code = BREAST CANCER SCREENING] Future Scheduled 2022-03-25 COLONOSCOPY SCREENING [facility] Test 14:48:42 [code = COLONOSCOPY SCREENING] Future Scheduled 2022-03-25 HEPATITIS B VACCINES Met [facility] Test 14:48:42 (1 of 3 - Risk 3-dose series) [code = HEPATITIS B VACCINES (1 of 3 - Risk 3-dose series)] Future Scheduled 2022-03-25 COVID-19 VACCINE (3 - [facility] Test 14:48:42 Booster for Pfizer series) [code = COVID-19 VACCINE (3 - Booster for Pfizer series)] Future Scheduled 2022-03-25 65+ [facility] 14:48:42 VACCINE (4 - PPSV23 if available, else PCV20) [code = 65+ PNEUMOCOCCAL VACCINE (4 - PPSV23 if available, else PCV20)] Future Scheduled 2022-03-25 INFLUENZA VACCINE Method [facility] Test 14:48:42 [code = INFLUENZA VACCINE] Future Scheduled 2022-03-25 SHINGLES VACCINES (1 Met [facility] Test 14:48:42 of 2) [code = SHINGLES VACCINES (1 of 2)] Future Scheduled 2022-03-25 BREAST CANCER [facility] Test 14:48:42 SCREENING [code = BREAST CANCER SCREENING] Future Scheduled 2022-03-25 COLONOSCOPY SCREENING Me [facility] Test 14:48:42 [code = COLONOSCOPY SCREENING] Future Scheduled 2022-03-25 HEPATITIS B VACCINES Met [facility] Test 14:48:42 (1 of 3 - Risk 3-dose series) [code = HEPATITIS B VACCINES (1 of 3 - Risk 3-dose series)] Future Scheduled 2022-03-25 COVID-19 VACCINE (3 - [facility] Test 14:48:42 Booster for Pfizer [...] Future Scheduled 2022-03-25 SHINGLES VACCINES (1 Met [facility] Test 14:48:42 of 2) [code = SHINGLES VACCINES (1 of 2)] Future Scheduled 2022-03-25 BREAST CANCER [facility] Test 14:48:42 SCREENING [code = BREAST CANCER SCREENING] Future Scheduled 2022-03-25 COLONOSCOPY SCREENING [facility] Test 14:48:42 [code = COLONOSCOPY SCREENING] Future Scheduled 2022-03-25 HEPATITIS B VACCINES Met [facility] Test 14:48:42 (1 of 3 - Risk 3-dose series) [code = HEPATITIS B VACCINES (1 of 3 - Risk 3-dose series)] Future Scheduled 2022-03-25 COVID-19 VACCINE (3 - Me [facility] Test 14:48:42 Booster for Pfizer series) [code = COVID-19 VACCINE (3 - Booster for Pfizer series)] Future Scheduled 2022-03-25 65+ PNEUMOCOCCAL [facility] Test 14:48:42 VACCINE (4 - PPSV23 if available, else PCV20) [code = 65+ PNEUMOCOCCAL VACCINE (4 - PPSV23 if available, else PCV20)] Future Scheduled 2022-03-25 INFLUENZA VACCINE Method [facility] Test 14:48:42 [code = INFLUENZA VACCINE] Future Scheduled 2022-03-04 SHINGLES VACCINES (1 Met [facility] Test 14:03:57 of 2) [code = SHINGLES VACCINES (1 of 2)] Future Scheduled 2022-03-04 BREAST CANCER [facility] Test 14:03:57 SCREENING [code = BREAST CANCER SCREENING] Future Scheduled 2022-03-04 COLONOSCOPY SCREENING [facility] Test 14:03:57 [code = COLONOSCOPY SCREENING] Future Scheduled 2022-03-04 HEPATITIS B VACCINES Met [facility] Test 14:03:57 (1 of 3 - Risk 3-dose series) [code = HEPATITIS B VACCINES (1 of 3 - Risk 3-dose series)] Future Scheduled 2022-03-04 COVID-19 VACCINE (3 - [facility] Test 14:03:57 Booster for Pfizer series) [code [...] Future Scheduled 2022-03-04 SHINGLES VACCINES (1 Met [facility] Test 14:03:57 of 2) [code = SHINGLES VACCINES (1 of 2)] Future Scheduled 2022-03-04 BREAST CANCER [facility] Test 14:03:57 SCREENING [code = BREAST CANCER SCREENING] Future Scheduled 2022-03-04 COLONOSCOPY SCREENING Me [facility] Test 14:03:57 [code = COLONOSCOPY SCREENING] Future Scheduled 2022-03-04 HEPATITIS B VACCINES Met [facility] Test 14:03:57 (1 of 3 - Risk 3-dose series) [code = HEPATITIS B VACCINES (1 of 3 - Risk 3-dose series)] Future Scheduled 2022-03-04 COVID-19 VACCINE (3 - Me [facility] Test 14:03:57 Booster for Pfizer series) [code = COVID-19 VACCINE (3 - Booster for Pfizer series)] Future Scheduled 2022-03-04 65+ [facility] 14:03:57 VACCINE (4 - PPSV23 if available, else PCV20) [code = 65+ PNEUMOCOCCAL VACCINE (4 - PPSV23 if available, else PCV20)] Future Scheduled 2022-03-04 INFLUENZA VACCINE Method [facility] Test 14:03:57 [code = INFLUENZA VACCINE] Future Scheduled 2022-03-04 SHINGLES VACCINES (1 Met [facility] Test 14:03:57 of 2) [code = SHINGLES VACCINES (1 of 2)] Future Scheduled 2022-03-04 BREAST CANCER [facility] Test 14:03:57 SCREENING [code = BREAST CANCER SCREENING] Future Scheduled 2022-03-04 COLONOSCOPY SCREENING [facility] Test 14:03:57 [code = COLONOSCOPY SCREENING] Future Scheduled 2022-03-04 HEPATITIS B VACCINES Met [facility] Test 14:03:57 (1 of 3 - Risk 3-dose series) [code = HEPATITIS B VACCINES (1 of 3 - Risk 3-dose series)] Future Scheduled 2022-03-04 COVID-19 VACCINE (3 - Me [facility] Test 14:03:57 Booster for [...] Future Scheduled 2022-03-04 SHINGLES VACCINES (1 Met [facility] Test 14:03:57 of 2) [code = SHINGLES VACCINES (1 of 2)] Future Scheduled 2022-03-04 BREAST CANCER [facility] Test 14:03:57 SCREENING [code = BREAST CANCER SCREENING] Future Scheduled 2022-03-04 COLONOSCOPY SCREENING [facility] Test 14:03:57 [code = COLONOSCOPY SCREENING] Future Scheduled 2022-03-04 HEPATITIS B VACCINES Met [facility] Test 14:03:57 (1 of 3 - Risk 3-dose series) [code = HEPATITIS B VACCINES (1 of 3 - Risk 3-dose series)] Future Scheduled 2022-03-04 COVID-19 VACCINE (3 - [facility] Test 14:03:57 Booster for Pfizer series) [code = COVID-19 VACCINE (3 - Booster for Pfizer series)] Future Scheduled 2022-03-04 65+ PNEUMOCOCCAL [facility] Test 14:03:57 VACCINE (4 - PPSV23 if available, else PCV20) [code = 65+ PNEUMOCOCCAL VACCINE (4 - PPSV23 if available, else PCV20)] Future Scheduled 2022-03-04 INFLUENZA VACCINE Method [facility] Test 14:03:57 [code = INFLUENZA VACCINE] Future Scheduled 2022-02-11 SHINGLES VACCINES (1 Met [facility] Test 13:39:12 of 2) [code = SHINGLES VACCINES (1 of 2)] Future Scheduled 2022-02-11 BREAST CANCER [facility] Test 13:39:12 SCREENING [code = BREAST CANCER SCREENING] Future Scheduled 2022-02-11 COLONOSCOPY SCREENING [facility] Test 13:39:12 [code = COLONOSCOPY SCREENING] Future Scheduled 2022-02-11 HEPATITIS B VACCINES Met [facility] Test 13:39:12 (1 of 3 - Risk 3-dose series) [code = HEPATITIS B VACCINES (1 of 3 - Risk 3-dose series)] Future Scheduled 2022-02-11 COVID-19 VACCINE (3 - [facility] Test 13:39:12 Booster for Pfizer series) [code = COVID-19 VACCINE (3 - Booster for Pfizer series)] Future Scheduled 2022-02-11 65[facility] 13:39:12 VACCINE (4 - PPSV23 or PCV20) [code = 65+ PNEUMOCOCCAL VACCINE (4 - PPSV23 or PCV20)] Future Scheduled 2022-02-11 INFLUENZA VACCINE Method [facility] Test 13:39:12 [code = INFLUENZA VACCINE] Future Scheduled 2022-01-29 SHINGLES VACCINES (1 Met [facility] Test 14:07:20 of 2) [code = SHINGLES VACCINES (1 of 2)] Future Scheduled 2022-01-29 BREAST CANCER [facility] Test 14:07:20 SCREENING [code = BREAST CANCER SCREENING] Future Scheduled 2022-01-29 COLONOSCOPY SCREENING [facility] Test 14:07:20 [code = COLONOSCOPY SCREENING] Future Scheduled 2022-01-29 HEPATITIS B VACCINES Met [facility] Test 14:07:20 (1 of 3 - Risk 3-dose series) [code = HEPATITIS B VACCINES (1 of 3 - Risk 3-dose series)] Future Scheduled 2022-01-29 COVID-19 VACCINE (3 - [facility] Test 14:07:20 Booster for Pfizer series) [code = COVID-19 VACCINE (3 - Booster for Pfizer series)] Future Scheduled 2022-01-29 65+ [facility]CCAL [facility] 14:07:20 VACCINE (4 - PPSV23 or PCV20) [code = 65+ PNEUMOCOCCAL VACCINE (4 - PPSV23 or PCV20)] Future Scheduled 2022-01-29 INFLUENZA VACCINE Method [facility] Test 14:07:20 [code = INFLUENZA VACCINE] Future Scheduled 2022-01-29 SHINGLES VACCINES (1 Met [facility] Test 14:07:20 of 2) [code = SHINGLES VACCINES (1 of 2)] Future Scheduled 2022-01-29 BREAST CANCER [facility] Test 14:07:20 SCREENING [code = BREAST CANCER SCREENING] Future Scheduled 2022-01-29 COLONOSCOPY SCREENING [facility] Test 14:07:20 [code = COLONOSCOPY SCREENING] Future Scheduled 2022-01-29 HEPATITIS B VACCINES Met [facility] Test 14:07:20 (1 of 3 - Risk 3-dose series) [code = HEPATITIS B VACCINES (1 of 3 - Risk 3-dose series)] Future Scheduled 2022-01-29 COVID-19 VACCINE (3 - [facility] Test 14:07:20 Booster for Pfizer series) [code = COVID-19 VACCINE (3 - Booster for Pfizer series)] Future Scheduled 2022-01-29 65+ PNEUMOCOCCAL [facility] Test 14:07:20 VACCINE (4 - PPSV23 or PCV20) [code = 65+ PNEUMOCOCCAL VACCINE (4 - PPSV23 or PCV20)] Future Scheduled 2022-01-29 INFLUENZA VACCINE Method [facility] Test 14:07:20 [code = INFLUENZA VACCINE] Future Scheduled 2022-01-29 SHINGLES VACCINES (1 Met [facility] Test 14:07:20 of 2) [code = SHINGLES VACCINES (1 of 2)] Future Scheduled 2022-01-29 BREAST CANCER [facility] Test 14:07:20 SCREENING [code = BREAST CANCER SCREENING] Future Scheduled 2022-01-29 COLONOSCOPY SCREENING [facility] Test 14:07:20 [code = COLONOSCOPY SCREENING] Future Scheduled 2022-01-29 HEPATITIS B VACCINES Met [facility] Test 14:07:20 (1 of 3 - Risk 3-dose series) [code = HEPATITIS B VACCINES (1 of 3 - Risk 3-dose series)] Future Scheduled 2022-01-29 COVID-19 VACCINE (3 - [facility] Test 14:07:20 Booster for Pfizer series) [code = COVID-19 VACCINE (3 - Booster for Pfizer series)] Future Scheduled 2022-01-29 65+ PNEUMOCOCCAL [facility] Test 14:07:20 VACCINE (4 - PPSV23 or PCV20) [code = 65+ PNEUMOCOCCAL VACCINE (4 - PPSV23 or PCV20)] Future Scheduled 2022-01-29 INFLUENZA VACCINE Method [facility] Test 14:07:20 [code = INFLUENZA VACCINE] Future Scheduled 2022-01-29 SHINGLES VACCINES (1 Met [facility] Test 14:07:20 of 2) [code = SHINGLES VACCINES (1 of 2)] Future Scheduled 2022-01-29 BREAST CANCER [facility] Test 14:07:20 SCREENING [code = BREAST CANCER SCREENING] Future Scheduled 2022-01-29 COLONOSCOPY SCREENING [facility] Test 14:07:20 [code = COLONOSCOPY SCREENING] Future Scheduled 2022-01-29 HEPATITIS B VACCINES Met [facility] Test 14:07:20 (1 of 3 - Risk 3-dose series) [code = HEPATITIS B VACCINES (1 of 3 - Risk 3-dose series)] Future Scheduled 2022-01-29 COVID-19 VACCINE (3 - Me [facility] Test 14:07:20 Booster for Pfizer series) [code = COVID-19 VACCINE (3 - Booster for Pfizer series)] Future Scheduled 2022-01-29 65+ PNEUMOCOCCAL [facility] Test 14:07:20 VACCINE (4 - PPSV23 or PCV20) [code = 65+ PNEUMOCOCCAL VACCINE (4 - PPSV23 or PCV20)] Future Scheduled 2022-01-29 INFLUENZA VACCINE Method [facility] Test 14:07:20 [code = INFLUENZA VACCINE] Future Scheduled 2022-01-20 SHINGLES VACCINES (1 Met [facility] Test 06:12:34 of 2) [code = SHINGLES VACCINES (1 of 2)] Future Scheduled 2022-01-20 Screening for [facility] Test 06:12:34 malignant neoplasm of cervix (procedure) [code = [id number]] Future Scheduled 2022-01-20 BREAST CANCER [facility] Test 06:12:34 SCREENING [code = BREAST CANCER SCREENING] Future Scheduled 2022-01-20 COLONOSCOPY SCREENING [facility] Test 06:12:34 [code = COLONOSCOPY SCREENING] Future Scheduled 2022-01-20 HEPATITIS B VACCINES Met [facility] Test 06:12:34 (1 of 3 - Risk 3-dose series) [code = HEPATITIS B VACCINES (1 of 3 - Risk 3-dose series)] Future Scheduled 2022-01-20 COVID-19 VACCINE (3 - Me [facility] Test 06:12:34 Booster for Pfizer series) [code = COVID-19 VACCINE (3 - Booster for Pfizer series)] Future Scheduled 2022-01-20 65+ PNEUMOCOCCAL [facility] Test 06:12:34 VACCINE (4 - PPSV23 or PCV20) [code = 65+ PNEUMOCOCCAL VACCINE (4 - PPSV23 or PCV20)] Future Scheduled 2022-01-20 INFLUENZA VACCINE Method [facility] Test 06:12:34 [code = INFLUENZA VACCINE] Future Scheduled 2022-01-16 SHINGLES VACCINES (1 Met [facility] Test 12:09:25 of 2) [code = SHINGLES VACCINES (1 of 2)] Future Scheduled 2022-01-16 Screening for [facility] Test 12:09:25 malignant neoplasm of cervix (procedure) [code = [id number]] Future Scheduled 2022-01-16 BREAST CANCER [facility] Test 12:09:25 SCREENING [code = BREAST CANCER SCREENING] Future Scheduled 2022-01-16 COLONOSCOPY SCREENING [facility] Test 12:09:25 [code = COLONOSCOPY SCREENING] Future Scheduled 2022-01-16 HEPATITIS B VACCINES Met [facility] Test 12:09:25 (1 of 3 - Risk 3-dose series) [code = HEPATITIS B VACCINES (1 of 3 - Risk 3-dose series)] Future Scheduled 2022-01-16 COVID-19 VACCINE (3 - [facility] Test 12:09:25 Booster for Pfizer series) [code = COVID-19 VACCINE (3 - Booster for Pfizer series)] Future Scheduled 2022-01-16 65+ PNEUMOCOCCAL [facility] Test 12:09:25 VACCINE (4 - PPSV23 or PCV20) [code = 65+ PNEUMOCOCCAL VACCINE (4 - PPSV23 or PCV20)] Future Scheduled 2022-01-16 INFLUENZA VACCINE Method [facility] Test 12:09:25 [code = INFLUENZA VACCINE] Future Scheduled 2022-01-14 SHINGLES VACCINES (1 Met [facility] Test 04:11:46 of 2) [code = SHINGLES VACCINES (1 of 2)] Future Scheduled 2022-01-14 Screening for [facility] Test 04:11:46 malignant neoplasm of cervix (procedure) [code = [id number]] Future Scheduled 2022-01-14 BREAST CANCER [facility] Test 04:11:46 SCREENING [code = BREAST CANCER SCREENING] Future Scheduled 2022-01-14 COLONOSCOPY SCREENING [facility] Test 04:11:46 [code = COLONOSCOPY SCREENING] Future Scheduled 2022-01-14 HEPATITIS B VACCINES Met [facility] Test 04:11:46 (1 of 3 - Risk 3-dose series) [code = HEPATITIS B VACCINES (1 of 3 - Risk 3-dose series)] Future Scheduled 2022-01-14 COVID-19 VACCINE (3 - [facility] Test 04:11:46 Booster for Pfizer series) [code = COVID-19 VACCINE (3 - Booster for Pfizer series)] Future Scheduled 2022-01-14 65+ PNEUMOCOCCAL [facility] Test 04:11:46 VACCINE (4 - PPSV23 or PCV20) [code = 65+ PNEUMOCOCCAL VACCINE (4 - PPSV23 or PCV20)] Future Scheduled 2022-01-14 INFLUENZA VACCINE Method [facility] Test 04:11:46 [code = INFLUENZA VACCINE] Future Scheduled 2021-08-26 Screening for [facility] Test 13:02:23 malignant neoplasm of cervix (procedure) [code = [id number]] Future Scheduled 2021-08-26 BREAST CANCER [facility] Test 13:02:23 SCREENING [code = BREAST CANCER SCREENING] Future Scheduled 2021-08-26 COLONOSCOPY SCREENING [facility] Test 13:02:23 [code = COLONOSCOPY SCREENING] Future Scheduled 2021-08-26 Screening for [facility] Test 13:02:23 malignant neoplasm of lung (procedure) [code = [id number]] Future Scheduled 2021-08-26 SHINGLES VACCINES (#1) [facility] Test 13:02:23 [code = SHINGLES VACCINES (#1)] Future Scheduled 2021-08-26 COVID-19 VACCINE (3 - [facility] Test 13:02:23 Pfizer risk 4-dose series) [code = COVID-19 VACCINE (3 - Pfizer risk 4-dose series)] Future Scheduled 2021-08-26 65+ PNEUMOCOCCAL [facility] Test 13:02:23 VACCINE (4 of 4 - PPSV23) [code = 65+ PNEUMOCOCCAL VACCINE (4 of 4 - PPSV23)] Future Scheduled 2021-08-26 INFLUENZA VACCINE Method [facility] ([facility] Test 13:02:23 [code = INFLUENZA VACCINE] Encounters Start End Encounter Admission Attending Care Care Encounter Source Date/Time Date/Time Type Type Clinicians Facility Department ID 2022-02-18 Outpatient CHW W [id number] [place] 14:30:[address] [place] [address] 2021-07-14 Outpatient SADIKOVIC, [facility] [id number] [place] 09:33:51 [facility] 2021-06-02 Outpatient HEMATPOUR, [facility] [id number] [place] 13:58:59 [facility] 2021-04-28 Outpatient HEMATPOUR, [facility] [id number] [place] 11:21:22 [facility] 2021-03-20 Emergency [facility] [id number] Univers 16:07:40 ity [facility] 2020-12-12 Outpatient HEMATPOUR, [facility] [id number] [place] 08:16:46 BEVERLY Laird 2020-10-31 Outpatient HEMATPOUR, [facility] [id number] [place] 09:44:50 BEVERLY [facility] 2020-09-30 Outpatient HEMATPOUR, [facility] [id number] [place] 13:16:03 [facility] 2022-10-06 2022-10-06 Outpatient R [facility] [id number] Univers 09:30:00 09:30:00 SANTIAGO [facility] 2022-09-26 2022-09-26 Refill [facility], UNIVERSIT 1.2.692.957 [id number] Univers 00:00:00 00:00:00 [facility] 350.1.13.10 i [place] [id number] [address] 2022-09-03 2022-09-03 Outpatient R [facility] [id number] Univers 11:00:00 11:00:00 [facility] 2022-08-24 2022-08-24 Refill [facility], 1.2.840.2 [id number] Univers 00:00:00 00:00:00 Santiago 61618.1.1 ity of 3.104.2.7 [place] .3.616263 Medica l .8 Branch 2022-05-20 2022-05-20 Telephone [facility], UNIVERSIT 1.2.840.114 99 [id number] Univers 00:00:00 00:00:00 [facility] 350.1.13.10 i [place] [id number] [address] 2022-05-10 2022-05-10 Emergency X BYRON, [facility] ERT [id number] Univers 10:30:00 16:31:00 HOME [facility] 2022-05-10 2022-05-10 Emergency Byron, TRAUMA 1.2.840.114 99 [id number] Univers 10:30:00 16:31:00 Home B CENTER 350.1.13.10 [place] [id number] [facility] 014 Neal 2022-05-10 2022-05-10 Telephone [facility] 1.2.840.114 99 [id number] Univers 00:00:00 00:00:00 [facility] HEALTH 350.1.13.10 i ty [place] [id number] [address] 2022-05-08 2022-05-08 Emergency [facility] [id number] Univers 16:18:00 18:42:00 THERESA barbosa [facility] 2022-05-08 2022-05-08 Emergency [facility] 1.2.840.114 99 [id number] Univers 16:18:00 18:42:00 Theresa BULLOCK 350.1.13.10 ity [place] [id number] [address] 2022-05-07 2022-05-07 Telephone [facility] 1.2.840.114 99 [id number] Univers 00:00:00 00:00:00 [facility] 350.1.13.10 i [place] [id number] [address] 2022-05-06 2022-05-06 Emergency X [facility] [id number] Univers 14:13:00 18:19:00 ANETTE macielcharlie [facility] 2022-05-06 2022-05-06 Emergency [facility] 1.2.831.198 [id number] Univers 14:13:00 18:19:00 Anette BULLOCK 350.1.13.10 it[place] [id number] [address] 2022-05-06 2022-05-06 Telephone [facility] 1.2.840.114 99 [id number] Univers 00:00:00 00:00:00 [facility] HEALTH 350.1.13.10 i ty [place] [id number] [address] 2022-04-22 2022-04-22 Emergency X [facility]RT [id number] Univers 13:55:00 17:00:00 PAULETTE [facility] 2022-04-22 2022-04-22 Emergency [facility] 1.2.541.875 [id number] [id number] Univers 13:55:00 17:00:00 Paulette Gonzales [place] 350.1.13.10 i ty [place] [id number] [address] 2022-04-07 2022-04-07 Outpatient R [facility] [id number] Univers 20:40:00 20:40:00 [facility] 2022-04-07 2022-04-07 Telephone Beltran, 1.2.840.3 [id number] Univers 00:00:00 00:00:00 Robbi R 79983.1.1 i ty of 3.104.2.7 [place] .3.373082 Medica l .8 Neal 2022-03-05 2022-03-05 Jointer Machine Operator Santiago Cardenas 1.2.840.1 [id number] Univers 13:45:00 14:00:00 Visit [facility] 74607.1.1 ity of 3.104.2.7 [place] .3.241074 Medica l .8 Neal 2022-03-05 2022-03-05 Office RonaldJOSÉ ANTONIO 1.2.278.968 [id number] [id number] Univers 13:00:00 13:30:00 Visit [facility] 350.1.13.10 i ty of [facility] 4.2.7.2.686 [facility] [id number] [address] 2022-03-05 2022-03-05 Outpatient R [facility] [id number] Univers 13:00:00 13:00:00 SANTIAGO [facility] 2022-02-26 2022-02-26 Outpatient R [facility] [id number] Univers 08:30:00 08:30:00 SANTIAGO [facility] 2022-02-26 2022-02-26 Outpatient R [facility], [facility] [id number] Univers 08:30:00 08:30:00 SANTIAGO ity of [facility] 2022-02-17 2022-02-17 Transition Stevo, 1.2.840.6 [id number] Univers 00:00:00 00:00:00 of Care Isaias Arredondo 23882.1.1 it y of 3.104.2.7 [place] .3.181451 Medica l .8 Neal 2022-02-10 2022-02-16 Inpatient X FRANK [facility] FAVOI [id number] Univers 22:59:00 19:27:00 TOMY ity of [facility] 2022-02-10 2022-02-16 Hospital Reilly Means 1.2.840.1 [id number] Univers 22:59:00 19:27:00 Encounter Ofe Shields 57956.1.1 ity of [place] 3.104.2.7 [place] .3.023313 Medica l .8 Neal 2022-02-11 2022-02-11 Telephone East, 1.2.840.6 [id number] Univers 00:00:00 00:00:00 Santiago 28472.1.1 ity of 3.104.2.7 [place] .3.970765 Medica l .8 Branch 2022-02-10 2022-02-10 Travel 1.2.840.1 1.2.020.690 5945 [id number] Univers 00:00:00 00:00:00 65521.1.1 350.1.13.10 ity of 3.104.2.7 4.2.7.3.698 [place] .3.802305 084.8 Medica l .8 Neal 2022-01-30 2022-01-30 Telephone East, 1.2.840.8 [id number] [id number] Univers 00:00:00 00:00:00 Santiago 96171.1.1 ity of 3.104.2.7 [place] .3.964133 Medica l .8 Neal 2022-01-06 2022-01-06 Orders Doctor FERMIN 1.2.840.114 [id number] Univers 00:00:00 00:00:00 Only Unassigned, JACKELINE 350.1.13.10 ity of [place] [facility] 4.2.7.2.686 Yomi as [id number] [facility] 009 Branch 2021-12-25 2021-12-25 Orders Doctor FERMIN 1.2.840.114 [id number] Univers 00:00:00 00:00:00 Only Unassigned, JACKELINE 350.1.13.10 ity of [place] [facility] 4.2.7.2.686 Yomi as [id number] [facility] 009 Branch 2021-12-12 2021-12-13 Emergency X Bill COLES [facility] ERT [id number] Univers 23:53:00 01:52:00 ity of [facility] 2021-12-12 2021-12-13 Emergency Bill Coles [facility] 1.2.840.114 95 [id number] Univers 23:53:00 01:52:00 Kiersten BULLOCK 350.1.13.10 i ty of [place].2.[place] [id number] [facility] 084 Branch 2021-11-20 2021-11-20 Jointer Machine Operator [facility] 1.2.840.114 9 [id number] Univers 09:45:00 10:00:00 Visit [facility] 350.1.13.10 ity of CLINICS 4.[place] [id number] [facility] 316 Branch 2021-11-20 2021-11-20 Office [facility] 1.2.238.659 2976 9084 Univers 08:30:00 09:00:00 Visit [facility] 350.1.13.10 i ty of [facility] 4.2.7.2.[place] 135.7067382 [facility] 089 Branch 2021-11-20 2021-11-20 Outpatient R [facility] [id number] Univers 08:30:00 08:30:00 SANTIAGO ity [facility] 2021-11-20 2021-11-20 Outpatient R [facility] [id number] Univers 08:30:00 08:30:00 SANTIAGO barbosa [facility] 2021-11-20 2021-11-20 Outpatient R EAST, [facility] [id number] Univers 08:30:00 08:30:00 SANTIAGO barbosa [facility] 2021-11-20 2021-11-20 Outpatient R EAST, [facility] [id number] Univers 08:30:00 08:30:00 SANTIAGO barbosa [facility] 2021-10-24 2021-10-24 Emergency X ESVIN [facility] ERT [id number] Univers 16:27:00 22:26:00 CHARITY barbosa [facility] 2021-10-24 2021-10-24 Emergency X ESVIN [facility] ERT [id number] Univers 16:27:00 22:26:00 CHARITY barbosa [facility] 2021-10-24 2021-10-24 Emergency Reilly Means [facility] 1.2.840. 114 [id number] Univers 16:27:00 22:26:00 Charity Mcallister [place] 350.1.13.10 ity [facility] 4.2.7.2.686 [facility] [id number] [address] 2021-10-23 2021-10-24 Emergency X ESVIN [facility] ERT [id number] Univers 20:22:00 02:57:00 CHARITY charlie [facility] 2021-10-23 2021-10-24 Emergency [facility] 1.2.712.220 [id number] [id number] Univers 20:22:00 02:57:00 Charity [facility] 350.1.13.10 ity [facility] 4.2.7.2.686 [facility] [id number] [address] 2021-09-07 2021-09-07 Outpatient R SELF, [facility] [id number] Univers 08:00:00 08:00:00 GADIEL barbosa o f [facility] 2021-09-07 2021-09-07 Outpatient R SELF, [facility] [id number] Univers 08:00:00 08:00:00 GADIEL barbosa o f [facility] 2021-08-21 2021-08-21 Outpatient R [facility] [id number] Univers 10:45:00 10:45:00 SANTIAGO barbosa [facility] 2021-08-21 2021-08-21 Jointer Machine Operator Santiago Cardenas 1.2.840.1 [id number] Univers 10:45:00 10:45:00 Visit [facility] 30045.1.1 ity of 3.104.2.7 [place] .3.471281 Medica l .8 Neal 2021-08-21 2021-08-21 Office East, 1.2.840.5 [id number] Univers 08:30:00 09:00:00 Visit Santiago 74623.1.1 ity of 3.104.2.7 [place] .3.673401 Medica l .8 Neal 2021-08-21 2021-08-21 Office [facility], UNIVERSIT 1.2.899.779 1167 8516 Univers 08:30:00 09:00:00 Visit Santiago [facility] 350.1.13.10 i ty of CL[place]ICS 4.[place] 475.7772195 [facility] 089 Neal 2021-08-21 2021-08-21 Outpatient R [facility] [id number] Univers 08:30:00 08:30:00 SANTIAGO barbosa [facility] 2021-08-21 2021-08-21 Travel 1.2.840.1 1.2.299.839 [id number] 3865 Univers 00:00:00 00:00:00 85342.1.1 350.1.13.10 ity of 3.104.2.7 4.2.7.3.698 [place] .3.687788 084.8 Medica l .8 Neal 2021-08-14 2021-08-14 Telephone East, 1.2.840.8 [id number] Univers 00:00:00 00:00:00 Santiago 09226.1.1 ity of 3.104.2.7 [place] .3.379188 Medica l .8 Neal 2021-08-13 2021-08-13 Telephone East, 1.2.840.7 [id number] Univers 00:00:00 00:00:00 Santiago 74770.1.1 [facility] 3.104.2.7 [place] [facility]3.553973 Medica l Branch 2021-08-11 2021-08-11 Outpatient [facility] [id number] Univers 08:00:00 08:00:00 [facility] 2021-08-05 2021-08-05 Inpatient RAUL StoneEDUARDO vegaCL OUTD [id number] [facility] 05:24:00 05:24:00 Mike 31 [facility] 2021-07-20 2021-07-20 Outpatient [facility] [id number] [facility] 10:00:00 10:00:00 [facility] 2021-07-14 2021-07-14 Office Pankaj, UTP 6400 1.2.840.114 13 [id number] [place] 08:45:00 09:34:[address] 350.1.13.58 Health 9.2.7.2.686 [id number] 1 2021-07-09 2021-07-09 Telephone Hematpour, UTP 6400 1.2.840.114 [id number] [place] 00:00:00 00:00:[address] 350.1.13.58 Health 9.2.7.2.686 [id number] 1 2021-07-09 2021-07-09 Telephone Hematpour, UTP 6400 1.2.840.114 [id number] [place] 00:00:00 00:00:[address] 350.1.13.58 Health 9.2.7.2.686 [id number] 1 2021-07-03 2021-07-03 Outpatient [facility] [id number] Univers 08:00:00 08:00:00 [facility] 2021-06-17 2021-06-17 Inpatient RAUL EDUARDO LundCL INTE.02 [id number] [facility] 10:56:00 14:36:00 Mike 47 [facility] 2021-06-15 2021-06-15 Outpatient R SELF, [facility] [id number] Univers 10:15:00 11:07:21 GADIEL rodas [facility] 2021-06-15 2021-06-15 Outpatient R SELF, [facility] [id number] Univers 10:15:00 10:15:00 GADIEL rodas [facility] 2021-06-15 2021-06-15 Outpatient R SELF, [facility] [id number] Univers 10:15:00 10:15:00 GADIEL rodas [facility] 2021-06-15 2021-06-15 Orders Doctor 1.2.840.1 [id number] Univers 00:00:00 00:00:00 Only Unassigned, 16028.1.1 ity of [place] 3.104.2.7 [place] .3.492675 Medica l .8 Neal 2021-06-15 2021-06-15 Travel 1.2.840.1 1.2.126.726 3155 7719 Univers 00:00:00 00:00:00 12897.1.1 350.1.13.10 ity of 3.104.2.7 4.2.7.3.698 [place] .3.740909 084.8 Medica l .8 Branch 2021-06-11 2021-06-11 Refill East, UNIVERSIT 1.2.523.359 6998 9185 Univers 00:00:00 00:00:00 [facility] 350.1.13.10 i ty of CLINICS 4.2.7.2.[place] 373.3160469 Medi porfirio 089 Branch 2021-06-11 2021-06-11 Refill East, 1.2.840.2 [id number] 185 Univers 00:00:00 00:00:00 Santiago 29865.1.1 ity of 3.104.2.7 [place] .3.620972 Medica l .8 Branch 2021-06-05 2021-06-05 Outpatient R EAST, [facility] [id number] Univers 09:00:00 09:00:00 SANTIAGO barbosa of [facility] 2021-06-02 2021-06-02 Telephone East, UNIVERSIT 1.2.840.114 [id number] Univers 00:00:00 00:00:00 Santiago HEALTH 350.1.13.10 i ty of CL[place]ICS 4[place].2.[place] 143.6907473 [facility] 089 Neal 2021-06-02 2021-06-02 Telephone East, 1.2.840.3 [id number] [id number] Univers 00:00:00 00:00:00 Santiago 89009.1.1 ity of 3.104.2.7 [place] .3.829134 Medica l .8 Neal 2021-05-29 2021-05-29 Telephone East, 1.2.840.2 [id number] [id number] Univers 00:00:00 00:00:00 Santiago 14592.1.1 ity of 3.104.2.7 [place] .3.659030 Medica l .8 Neal 2021-05-29 2021-05-29 Telephone East, 1.2.840.4 [id number] 902 [id number] Univers 00:00:00 00:00:00 Santiago 96137.1.1 ity of 3.104.2.7 [place] .3.660398 Medica l .8 Neal 2021-05-25 2021-05-25 Outpatient R RODO, [facility] [id number] Univers 08:00:00 08:00:00 GADIEL barbosa o f [facility] 2021-04-29 2021-04-29 Outpatient R LALA, [facility] [id number] Univers 08:00:00 08:00:00 NIKOLAI barbosa [facility] 2021-04-28 2021-04-28 Telephone Hematporay, UTP 6400 1.2.840.114 [id number] [place] 00:00:00 00:00:00 Beverly RUIZ 350.1.13.58 Health 9.2.7.2.686 [id number] 1 2021-04-28 2021-04-28 Telephone Jailyn 1.2.840.3 [id number] 21 [id number] Methodi 00:00:00 00:00:[address] 3.430.2.7 Hospit a .3.759149 l .8 2021-03-31 2021-03-31 Orders Carol Ann, 1.2.840.1 [id number] 21 [id number] Methodi 00:00:00 00:00:00 Only Sarai Lieberman 94722.1.1 979 s t 3.430.2.7 Hospit a .3.726314 l .8 2021-03-30 2021-03-30 Outpatient R RODO, [facility] [id number] Univers 08:45:00 08:45:00 GADIEL rodas [facility] 2021-03-24 2021-03-24 Telephone Jailyn, 1.2.840.3 [id number] 21 [id number] Methodi 00:00:00 00:00:[address] 3.430.2.7 Hospit a .3.099038 l .8 2021-02-13 2021-02-13 Telephone Ronald, 1.2.840.8 [id number] 876 63623 [facility] 00:00:00 00:00:00 Santiago 76856.1.1 ity of 3.104.2.7 [place] 3.370310 Medica l .8 Neal 2021-01-28 2021-01-28 Outpatient [facility] [id number] Univers 08:45:00 09:37:00 NIKOLAI barbosa of [facility] 2021-01-28 2021-01-28 Travel 1.2.840.1 1.2.913.360 3599 9777 Univers 00:00:00 00:00:00 67564.1.1 350.1.13.10 ity of 3.104.2.7 4.2.7.3.698 [place] .3.526409 084.8 Medica l .8 Neal 2021-01-19 2021-01-19 Telephone Prabhu 1.2.840.1 [id number] 2100 [id number] Methodi 00:00:00 00:00:[address] 3.430.2.7 Hospit a .3.731934 l .8 2021-01-04 2021-01-04 Dmitry Bass, 1.2.840.2 [id number] 93340 696 Univers 00:00:00 00:00:00 (Out) Dagoberto H 31220.1.1 ity of 3.104.2.7 [place] .3.664337 Medica l .8 Branch 2021-01-04 2021-01-04 Dmitry Bass, 1.2.840.4 [id number] 75192 696 Univers 00:00:00 00:00:00 (Out) Dagoberto H 71061.1.1 ity of 3.104.2.7 [place] .3.464369 Medica l .8 Branch 2021-01-03 2021-01-03 Dmitry Bass, 1.2.840.2 [id number] 73482 790 Univers 00:00:00 00:00:00 (Out) Dagoberto H 04352.1.1 ity of 3.104.2.7 [place] .3.754058 Medica l .8 Branch 2021-01-03 2021-01-03 Dmitry Bass, 1.2.840.6 [id number] 56050 790 Univers 00:00:00 00:00:00 (Out) Dagoberto H 24061.1.1 ity of 3.104.2.7 [place] .3.656392 Medica l .8 Branch 2021-01-02 2021-01-02 Outpatient R [facility] [id number] Univers 13:40:00 13:40:00 ity of [facility] 2021-01-02 2021-01-02 Laboratory [place] Franks 1.2.840.5 [id number] Univers 12:14:13 12:57:34 Only Lab, [place] I 73567.1.1 ity of 3.104.2.7 [place] .3.925979 Medica l .8 Branch 2021-01-02 2021-01-02 Laboratory [place] Franks 1.2.840.0 [id number] [id number] Univers 12:14:13 12:57:34 Only Lab, Adc Fam [place]ob I 24717.1.1 ity of 3.104.2.7 [place] .3.695834 Medica l .8 Branch 2021-01-02 2021-01-02 Travel 1.2.840.1 1.2.006.479 5396 2306 Univers 00:00:00 00:00:00 12929.1.1 350.1.13.10 ity of 3.104.2.7 4.2.7.3.698 [place] .3.485144 084.8 Medica l .8 Branch 2021-01-02 2021-01-02 Letter Doctor 1.2.840.4 [id number] 948 Univers 00:00:00 00:00:00 (Out) Unassigned, 96163.1.1 ity of [place] 3.104.2.7 [place] .3.923395 Medica l .8 Branch 2021-01-02 2021-01-02 Letter Doctor 1.2.840.2 [id number] 946 Univers 00:00:00 00:00:00 (Out) Unassigned, 90323.1.1 ity of [place] 3.104.2.7 [place] .3.643911 Medica l .8 Branch 2021-01-02 2021-01-02 Travel 1.2.840.1 1.2.347.563 6848 2306 Univers 00:00:00 00:00:00 61965.1.1 350.1.13.10 ity of 3.104.2.7 4.2.7.3.698 [place] .3.685902 084.8 Medica l .8 Branch 2021-01-02 2021-01-02 Letter Doctor 1.2.840.6 [id number] 35202 948 Univers 00:00:00 00:00:00 (Out) Unassigned, 40720.1.1 ity of [place] 3.104.2.7 [place] .3.873657 Medica l .8 Branch 2021-01-02 2021-01-02 Letter Doctor 1.2.840.2 [id number] 54378 946 Univers 00:00:00 00:00:00 (Out) Unassigned, 46929.1.1 ity of [place] 3.104.2.7 [place] .3.189643 Medica l .8 Branch 2020-12-22 2020-12-22 Telephone Beltran, 1.2.840.9 [id number] 862 54134 Univers 00:00:00 00:00:00 Eligionda R 22779.1.1 i ty of 3.104.2.7 [place] .3.326235 Medica l .8 Branch 2020-12-22 2020-12-22 Telephone Beltran, 1.2.840.7 [id number] 862 11778 Univers 00:00:00 00:00:00 Eligionda R 64705.1.1 i ty of 3.104.2.7 [place] .3.825976 Medica l .8 Neal 2020-12-12 2020-12-12 Office Hematpour, UTP 6400 1.2.840.114 12 [id number] [place] 07:42:02 08:18:[address] 350.1.13.58 Health 9.2.7.2.686 [id number] 1 2020-12-12 2020-12-12 Office Hematpour, UTP 6400 1.2.840.114 12 [id number] 07:42:02 08:18:[address] 350.1.13.58 9.2.7.2.686 [id number] 1 2020-12-09 2020-12-09 Telephone Meisenbach, 1.2.840.1 [id number] Methodi 00:00:00 00:00:00 Sarai M. 61286.1.1 316 s t 3.430.2.7 Hospit a .3.746584 l .8 2020-12-08 2020-12-08 [facility], 1.2.840.1 [id number] 2100 354065 Methodi 12:35:54 23:59:00 Encounter Ray 16049.1.[address] 3.430.2.7 Hospit a .3.592883 l .8 2020-12-08 2020-12-08 Lab Jailyn, 1.2.840.1 [id number] 37171 43446 Methodi 17:25:00 17:30:[address] 3.430.2.7 Hospit a .3.227500 l .8 2020-12-08 2020-12-08 Office Jailyn, 1.2.840.1 [id number] 76685 78351 Methodi 10:30:00 11:39:56 Visit Ray [address]3280.1.[address] 3.430.2.7 Hospit a .3.587957 l .8 2020-12-08 2020-12-08 Travel 1.2.840.1 1.2.910.669 4829 563845 Methodi 00:00:00 00:00:[address] 3.430.2.7 0.2.7.3.698 Ho spita .3.100893 084.8 l .8 2020-12-02 2020-12-02 Jointer Machine Operator Santiago Cardenas 1.2.840.1 [id number] [facility] 10:20:06 10:36:19 Visit [facility] 57968.1.1 ity of 3.104.2.7 [place] .3.914102 Medica l .8 Neal 2020-12-02 2020-12-02 Jointer Machine Operator Santiago Cardenas 1.2.840.1 [id number] [facility] 10:20:06 10:36:19 Visit [facility] 72217.1.1 ity of 3.104.2.7 [place] .3.002258 Medica l .8 Neal 2020-12-02 2020-12-02 Jointer Machine Operator [facility]ERSIT 1.2.840.114 [id number] 10:20:06 10:36:19 Visit [facility] 350.1.13.10 CLINICS 4.2.7.2.686 [id number] 316 2020-12-02 2020-12-02 Office [place], 1.2.840.3 [id number] Univers 08:31:37 09:01:37 Visit Santiago 32411.1.1 ity of 3.104.2.7 [place] .3.590113 Medica l .8 Neal 2020-12-02 2020-12-02 [facility] [id number] Univers 09:00:00 09:00:00 [place] ity [facility] 2020-11-25 2020-11-25 Office [place], 1.2.840.7 [id number] [id number] Univers 11:06:30 11:58:14 Visit Amarilisjolie Hairston 75159.1.1 i ty of 3.104.2.7 [place] .3.836221 Medica l .8 Neal 2020-11-25 2020-11-25 Office Devin, 1.2.840.2 [id number] 865 Univers 11:06:30 11:58:14 Visit Robbi Hairston 13066.1.1 i ty of 3.104.2.7 [place] .3.797322 Medica l .8 Neal 2020-11-25 2020-11-25 [facility] 1.2.840.114 [id number] 11:06:30 11:58:14 Visit Devinaleshia Hairston ONLINE MARKETING SPECIALIST 350.1.13.10 [facility] 4.2.7.2.686 MATERNAL [id number] & CHILD [address] [place] [address] 2020-11-25 2020-11-25 Outpatient R [facility] [id number] Univers 11:00:00 11:00:00 ity of [facility] 2020-11-25 2020-11-25 Telephone Devin, 1.2.840.7 [id number] Univers 00:00:00 00:00:00 Eligiomeredith Hairston 13854.1.1 i ty of 3.104.2.7 [place] .3.269674 Medica l .8 Neal 2020-11-25 2020-11-25 Refill [place], 1.2.840.8 [id number] 592 Univers 00:00:00 00:00:00 Santiago 04851.1.1 ity of 3.104.2.7 [place] .3.312338 Medica l .8 Branch 2020-11-25 2020-11-25 Travel 1.2.840.1 1.2.619.189 0860 0247 Univers 00:00:00 00:00:00 01980.1.1 350.1.13.10 ity of 3.104.2.7 4[place]7.3.698 [place] .3.001102 084.8 Medica l .8 Branch 2020-11-25 2020-11-25 Orders Doctor 1.2.840.2 [id number] 064 Univers 00:00:00 00:00:00 Only Unassigned, 69617.1.1 ity of [place] 3.104.2.7 [place] .3.273169 Medica l .8 Branch 2020-11-25 2020-11-25 Telephone [place]tran, 1.2.840.8 [id number] [id number] Univers 00:00:00 00:00:00 Robbi Hariston 43793.1.1 i ty of 3.104.2.7 [place] .3.136399 Medica l .8 Branch 2020-11-25 2020-11-25 Refill [place], 1.2.840.0 [id number] 592 Univers 00:00:00 00:00:00 Santiago 20428.1.1 ity of 3.104.2.7 [place] .3.153796 Medica l .8 Branch 2020-11-25 2020-11-25 Travel 1.2.840.1 1.2.006.275 5154 0247 Univers 00:00:00 00:00:00 84282.1.1 350.1.13.10 ity of 3.104.2.7 4.2.7.3.698 [place] .3.712621 084.8 Medica l .8 Branch 2020-11-25 2020-11-25 Orders Doctor 1.2.840.9 [id number] 064 Univers 00:00:00 00:00:00 Only Unassigned, 66890.1.1 ity of [place] 3.104.2.7 [place] .3.716192 Medica l 8 Neal 2020-11-25 2020-11-25 [facility] 1.2.817.376 5334 [id number] 00:00:00 00:00:00 [facility] 350.1.13.10 [facility] 4.2.7.2.686 [id number] 089 2020-11-25 2020-11-25 Telephone [facility] 1.2.184.238 [id number] 0821 00:00:00 00:00:00 Robbi Hairston ONLINE MARKETING SPECIALIST 350.1.13.10 [facility] 4.2.7.2.686 MATERNAL [id number] & CHILD [address] [place] [address] 2020-11-14 2020-11-14 Abstract Rodas, 1.2.840.1 [id number] Methodi 00:00:00 00:00:[address] 3.430.2.7 Hospit a .3.555136 l .8 2020-11-14 2020-11-14 Telephone [place] 1.2.840.1 [id number] [id number] Methodi 00:00:00 00:00:00 Monica 94845.1.1 [address] 3.430.2.7 Hospit a .3.291824 l .8 2020-11-12 2020-11-12 Outpatient [facility] [id number] Univers 08:30:00 08:30:00 SANTIAGO ity of [facility] 2020-11-07 2020-11-07 Telephone Agustina Ortiz 6400 1.2.840.11 4 [id number] [place] 00:00:00 00:00:[address] 350.1.13.58 [facility] 9.2.7.2.686 [id number] 1 2020-11-07 2020-11-07 Telephone KIMBERLEY Ortiz 6400 1.2.840.114 124 [id number] 00:00:00 00:00:[address] 350.1.13.58 9.2.7.2.686 [id number] 1 2020-10-31 2020-10-31 Office Maryjaneporay UTP 6400 1.2.840.114 12 [id number] [place] 07:54:00 09:45:[address] 350.1.13.58 Health 9.2.7.2.686 [id number] 1 2020-10-30 2020-10-30 Abstract Rody Maguire UTP 6400 1.2.840.1 14 [id number] [place] 00:00:00 00:00:[address] 350.1.13.58 Health 9.2.7.2.686 [id number] 1 2020-10-29 2020-10-29 Refill East, 1.2.840.0 [id number] 400 Univers 00:00:00 00:00:00 Santiago 63512.1.1 ity of 3.104.2.7 [place] .3.467741 Medica l .8 Branch 2020-10-29 2020-10-29 Refill East, 1.2.840.0 [id number] 400 Univers 00:00:00 00:00:00 Santiago 71127.1.1 ity of 3.104.2.7 [place] .3.885098 Medica l .8 Branch 2020-10-27 2020-10-27 Telephone Jailyn, 1.2.840.6 [id number] 21 [id number] Methodi 00:00:00 00:00:[address] 3.430.2.7 Hospit a .3.908633 l .8 2020-10-24 2020-10-24 Telephone Clark, 1.2.840.1 [id number] 2100 [id number] Methodi 00:00:00 00:00:[address] 3.430.2.7 Hospit a .3.485507 l .8 2020-10-22 2020-10-22 Outpatient R SELF, [facility] [id number] Univers 13:00:00 13:00:00 GADIEL rodas [facility] 2020-10-22 2020-10-22 Travel 1.2.840.1 1.2.866.344 6844 3839 Univers 00:00:00 00:00:00 72072.1.1 350.1.13.10 ity of 3.104.2.[place].3.698 [place] .3.275219 084.8 Medica l .8 Branch 2020-10-22 2020-10-22 Travel 1.2.840.1 1.2.204.215 9148 3839 [facility] 00:00:00 00:00:00 73545.1.1 350.1.13.10 ity of 3.104.2.7 [place].3.698 [place] .3.308980 084.8 Medica l .8 Neal 2020-10-13 2020-10-13 Outpatient R [facility], [facility] [id number] Univers 08:45:00 08:45:00 GADIEL rodas [facility] 2020-10-06 2020-10-12 Telemedici Chihara, 1.2.840.1 [id number] 21 [id number] Methodi 15:30:00 00:08:46 ne Ray 34522.1.[address] 3.430.2.7 Hospit a .3.678362 l .8 2020-09-30 2020-09-30 Telephone Chihara, 1.2.840.0 [id number] 21 [id number] Methodi 00:00:00 00:00:[address] 3.430.2.7 Hospit a .3.660437 l .8 2020-09-21 2020-09-21 Travel 1.2.840.1 1.2.562.071 6539 517324 Methodi 00:00:00 00:00:[address] 3.430.2.7 0.2.7.3.698 Ho spita .3.440450 084.8 l .8 2020-09-06 2020-09-06 [facility] 1.2.840.1 [id number] 12918 98169 Methodi 17:42:30 23:59:[address] 3.430.2.7 Hospit a .3.654826 l .8 2020-09-06 2020-09-06 [facility], 1.2.840.1 [id number] 2100 [id number] Methodi 16:50:00 17:41:00 Encounter Ray 82335.1.[address] 3.430.2.7 Hospit a .3.954141 l .8 2020-09-05 2020-09-05 [facility], 1.2.840.1 [id number] 2099 [id number] Methodi 09:17:00 19:45:00 Encounter Ray [address]09.1.[address] 3.430.2.7 Hospit a .3.734731 l .8 2020-09-05 2020-09-05 [facility], 1.2.840.1 [id number] 36504 96019 Methodi 11:30:00 13:15:[address] 3.430.2.7 Hospit a .3.773216 l .8 2020-09-05 2020-09-05 Anesthesia [facility], 1.2.840.1 [id number] Methodi 11:27:00 12:20:00 Event Anupamwathi 10090.1.1 243 s t V. 3.430.2.7 Hospit a .3.762965 l .8 2020-09-05 2020-09-05 Travel 1.2.840.1 1.2.968.302 7526 889855 Methodi 00:00:00 00:00:[address] 3.430.2.7 0.2.7.3.698 Ho spita .3.366313 084.8 l .8 2020-09-04 2020-09-04 Telephone Carol Ann, 1.2.840.1 [id number] Methodi 00:00:00 00:00:00 Sarai Lieberman 52452.1.1 762 s t 3.430.2.7 Hospit a .3.516077 l .8 2020-09-02 2020-09-02 Telephone Jillbrennalion, 1.2.840.6 [id number] Methodi 00:00:00 00:00:00 Sarai Lieberman 08356.1.1 344 s t 3.430.2.7 Hospit a .3.992460 l .8 2020-08-29 2020-08-30 [facility]ded [facility] [id number] [facility] 10:20:00 14:10:00 Outpatient r Hollis 00 l [facility] 2020-08-29 2020-08-30 Outpatient HEMATPOUR, [facility] CAR 7500 [facility] 05:20:00 09:10:00 BEVERLY 2020-08-06 2020-08-06 Office East, 1.2.840.0 [id number] Univers 08:03:23 09:17:49 Visit Santiago 82854.1.1 ity of 3.104.2.7 [place] .3.926535 Medica l .8 Neal 2020-08-06 2020-08-06 Outpatient R [facility] [id number] Univers 08:30:00 08:30:00 SANTIAGO barbosa of [facility] 2020-07-14 2020-07-14 Outpatient R [facility], [facility] [id number] Univers 09:30:00 09:30:00 GADIEL barbosa o f [facility] 2020-07-14 2020-07-14 Travel 1.2.840.1 1.2.038.551 9856 2575 Univers 00:00:00 00:00:00 29114.1.1 350.1.13.10 ity of 3.104.2.7 4[place]7.3.698 [place] .3.052480 084.8 Medica l .8 Neal 2020-07-14 2020-07-14 Orders Doctor 1.2.840.3 [id number] Univers 00:00:00 00:00:00 Only Unassigned, 82511.1.1 ity of [place] 3.104.2.7 [place] .3.879828 Medica l .8 Neal 2020-06-16 2020-06-16 Outpatient R SELF, [facility] [id number] Univers 08:00:00 08:00:00 GADIEL ity o f [facility] 2020-06-06 2020-06-06 Telephone East, 1.2.840.6 [id number] [id number] Univers 00:00:00 00:00:00 Santiago 65510.1.1 ity of 3.104.2.7 [place] .3.933888 Medica l .8 Neal 2020-06-04 2020-06-04 Jointer 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 1.2.814.820 6234 9729 Univers 08:13:41 09:28:25 Visit Santiago [facility] 350.1.13.10 i ty of [place] 197.5764[place] [facility] 089 Neal 2020-06-04 2020-06-04 Outpatient R [facility] [id number] Univers 08:30:00 08:30:00 SANTIAGO barbosa of [facility] 2020-06-04 2020-06-04 Orders Doctor 1.2.840.8 [id number] 079 Univers 00:00:00 00:00:00 Only Unassigned, 03877.1.1 ity of [place] 3.104.2.7 [place] .3.232793 Medica l .8 Neal 2020-05-19 2020-05-19 Telephone East, 1.2.840.3 [id number] [id number] Univers 00:00:00 00:00:00 Santiago 04633.1.1 ity of 3.104.2.7 [place] .3.076624 Medica l .8 Branch 2020-04-24 2020-04-24 Telephone [place], 1.2.840.0 [id number] 799 [id number] Univers 00:00:00 00:00:00 Santiago 90695.1.1 ity of 3.104.2.7 [place] .3.013577 Medica l .8 Neal 2020-04-14 2020-04-14 Outpatient R EAST, [facility] [id number] Univers 09:00:00 09:00:00 SANTIAGO ity of [facility] 2020-04-14 2020-04-14 Telephone [place], 1.2.840.5 [id number] 797 [id number] Univers 00:00:00 00:00:00 Santiago 39273.1.1 ity of 3.104.2.7 [place] .3.136533 Medica l .8 Neal 2020-03-31 2020-03-31 Outpatient R EAST, [facility] [id number] Univers 08:30:00 08:30:00 SANTIAGO ity of [facility] 2020-03-03 2020-03-03 Outpatient R SELF, [facility] [id number] Univers 08:00:00 08:00:00 GADIEL maciely o f [facility] 2020-03-03 2020-03-03 Outpatient R SELF, [facility] [id number] Univers 08:00:00 08:00:00 GADIEL maciely o f [facility] 2020-03-03 2020-03-03 Travel 1.2.840.1 1.2.893.184 1147 5480 Univers 00:00:00 00:00:00 91148.1.1 350.1.13.10 ity of 3.104.2.7 [place].3.698 [place] .3.483648 084.8 Medica l .8 Neal 2020-02-06 2020-02-06 Telephone East, 1.2.840.1 [id number] [id number] Univers 00:00:00 00:00:00 Santiago 12716.1.1 ity of 3.104.2.7 [place] .3.460596 Medica l .8 Neal 2020-01-26 2020-01-26 Emergency Caridad, 1.2.840.3 [id number] 779 [id number] Univers 10:03:00 13:05:00 Cynise 61745.1.1 ity of 3.104.2.7 [place] .3.258332 Medica l .8 Neal 2020-01-26 2020-01-26 Travel 1.2.840.1 1.2.071.251 5580 0120 Univers 00:00:00 00:00:00 62380.1.1 350.1.13.10 ity of 3.104.2.7 4[place]7.3.698 [place] .3.872562 084.8 Medica l .8 Neal 2020-01-25 2020-01-25 Outpatient R EAST, [facility] [id number] Univers 08:30:00 08:30:00 SANTIAGO [facility] 2020-01-25 2020-01-25 Telemedici [place], 1.2.840.8 [id number] Univers 07:36:49 08:06:49 ne Visit Santiago 63321.1.1 ity of 3.104.2.7 [place] .3.427043 Medica l .8 Neal 2020-01-16 2020-01-16 Outpatient R EAST, [facility] [id number] Univers 08:00:00 08:00:00 SANTIAGO [facility] 2020-01-16 2020-01-16 Telephone East, 1.2.840.0 [id number] Univers 00:00:00 00:00:00 Santiago 66206.1.1 ity of 3.104.2.7 [place] .3.413534 Medica l .8 Neal 2020-01-14 2020-01-14 Outpatient R SELF, [facility] [id number] Univers 08:00:00 08:00:00 GADIEL vogel f [facility] 2019-12-31 2019-12-31 Outpatient R SELF, [facility] [id number] Univers 08:45:00 08:45:00 GADIEL vogel f [facility] 2019-10-17 2019-10-17 Outpatient R [facility]AST, [facility] [id number] Univers 08:30:00 08:30:00 SANTIAGO barbosa [facility] 2019-10-12 2019-10-12 Outpatient R EAST, [facility] [id number] Univers 13:00:00 13:00:00 SANTIAGO ity [facility] 2019-10-12 2019-10-12 Telemedici [place], 1.2.840.7 [id number] Univers 07:38:30 08:08:30 ne Visit Santiago 64555.1.1 ity of 3.104.2.7 [place] .3.443967 Medica l .8 Neal 2019-10-08 2019-10-08 Outpatient R SELF, [facility] [id number] Univers 10:15:00 10:15:00 GADIEL ity o f [facility] 2019-10-03 2019-10-03 Case Xiao, 1.2.840.8 [id number] Univers 00:00:00 00:00:00 Management Michael Corbin 79010.1.1 i ty of 3.104.2.7 [place] .3.526577 Medica l .8 Neal 2019-09-27 2019-09-27 Telephone East, 1.2.840.2 [id number] [id number] Univers 00:00:00 00:00:00 Santiago 91060.1.1 ity of 3.104.2.7 [place] .3.069540 Medica l .8 Neal 2019-09-04 2019-09-04 Refill East, 1.2.840.9 [id number] Univers 00:00:00 00:00:00 Santiago 57903.1.1 ity of 3.104.2.7 [place] .3.017275 Medica l .8 Neal 2019-07-24 2019-07-24 Outpatient R [facility] [id number] Univers 08:30:00 08:30:00 SANTIAGO ity [facility] 2019-07-17 2019-07-17 Outpatient R EAST, [facility] [id number] Univers 10:00:00 10:00:00 SANTIAGO ity [facility] 2019-06-15 2019-06-15 Telephone East, 1.2.840.3 [id number] [id number] Univers 00:00:00 00:00:00 Santiago 83149.1.1 ity of 3.104.2.7 [place] .3.078568 Medica l .8 Neal 2019-06-13 2019-06-13 Telephone Team, [facility] 1.2.840.1 [id number] Univers 00:00:00 00:00:00 Health 82230.1.1 ity [place].2.[place] .3.689955 Medica l .8 Neal 2019-05-10 2019-05-10 Refill Ronald, 1.2.840.7 [id number] Univers 00:00:00 00:00:00 Santiago 49055.1.1 ity of 3.104.2.7 [place] .3.264147 Medica l .8 Neal 2019-05-09 2019-05-09 Refill Ronald, 1.2.840.2 [id number] [id number] Univers 00:00:00 00:00:00 Santiago 92543.1.1 ity of 3.104.2.7 [place] .3.985276 Medica l .8 Neal 2019-04-30 2019-04-30 Outpatient R SELF, [facility] [id number] Univers 10:15:00 10:33:05 GADIEL vogel f [facility] 2019-04-18 2019-04-18 Jointer Machine Operator [place] Cardenas 1.2.840.1 [id number] Univers 10:00:39 10:44:31 Visit [facility] 70201.1.1 ity of 3.104.2.7 [place] .3.134315 Medica l .8 Neal 2019-04-18 2019-04-18 Outpatient R RONALD [facility] [id number] Univers 10:00:00 10:44:31 SANTIAGO itcharlie of [facility] 2019-04-18 2019-04-18 Office Ronald, 1.2.840.5 [id number] 005 Univers 08:27:44 09:53:27 Visit Santiago 54762.1.1 ity of 3.104.2.7 [place] .3.298823 Medica l .8 Neal 2019-04-18 2019-04-18 Orders Doctor 1.2.840.6 [id number] Univers 00:00:00 00:00:00 Only Unassigned, 18029.1.1 ity of [place] 3.104.2.7 [place] .3.587069 Medica l .8 Neal 2019-04-11 2019-04-11 Refill East, 1.2.840.6 [id number] 033 Univers 00:00:00 00:00:00 Santiago 60079.1.1 ity of 3.104.2.7 [place] .3.814791 Medica l .8 Neal 2019-04-09 2019-04-09 Refill East, 1.2.840.2 [id number] Univers 00:00:00 00:00:00 Santiago 68981.1.1 ity of 3.104.2.7 [place] .3.137289 Medica l .8 Neal 2019-04-03 2019-04-03 Telephone Team, [facility] 1.2.840.7 [id number] Univers 00:00:00 00:00:00 Health 93209.1.1 ity [place].2.[place] .3.428014 Medica l .8 Neal 2019-03-27 2019-03-27 Telephone Self, 1.2.840.6 [id number] 723 [id number] Univers 00:00:00 00:00:00 Gadiel 58032.1.1 ity of 3.104.2.7 [place] .3.517822 Medica l .8 Neal 2019-01-17 2019-01-17 Office Ronald, 1.2.840.3 [id number] Univers 07:37:21 10:32:51 Visit Santiago 56466.1.1 ity of 3.104.2.7 [place] .3.248664 Medica l .8 Neal 2019-01-04 2019-01-12 Office Eveline Hansen 1.2.840.7 [id number] Univers 11:19:32 11:08:05 Visit Mariela 63867.1.1 ity of 3.104.2.7 [place] .3.228953 Medica l .8 Neal 2019-01-10 2019-01-10 Telephone Stanislav, 1.2.840.2 [id number] [id number] Univers 00:00:00 00:00:00 Eladio Inman 89188.1.1 ity of 3.104.2.7 [place] .3.047483 Medica l .8 Neal 2018-12-18 2018-12-18 Office Geraldine, 1.2.840.4 [id number] Univers 08:48:45 09:13:43 Visit Leyda 80493.1.1 it y of 3.104.2.7 [place] .3.772728 Medica l .8 Neal 2018-10-30 2018-10-30 Telephone East, 1.2.840.3 [id number] [id number] Univers 00:00:00 00:00:00 Santiago 46784.1.1 ity of 3.104.2.7 [place] .3.263098 Medica l .8 Neal 2018-10-23 2018-10-23 Orders Doctor 1.2.840.9 [id number] Univers 00:00:00 00:00:00 Only Unassigned, 31426.1.1 ity of [place] 3.104.2.7 [place] .3.543220 Medica l .8 Neal 2018-10-23 2018-10-23 Nurse Selvin, 1.2.840.2 [id number] Univers 00:00:00 00:00:00 Triage Stefanie 38239.1.1 ity of 3.104.2.7 [place] .3.824078 Medica l .8 Neal 2018-10-23 2018-10-23 Telephone Self, 1.2.840.1 [id number] [id number] Univers 00:00:00 00:00:00 Gadiel 33093.1.1 ity of 3.104.2.7 [place] .3.545775 Medica l .8 Neal 2018-10-20 2018-10-20 Telephone Self, 1.2.840.4 [id number] [id number] Univers 00:00:00 00:00:00 Gadiel 12998.1.1 ity of 3.104.2.7 [place] .3.245455 Medica l .8 Branch Results Test Description Test Time Test Comments Results Result Comments Source COMP. METABOLIC PANEL (83495) 2022-05-06 22:42:55 Test Item Value Reference Range Interpretation Comme nts NA (test code = 0145234050) 137 mmol/L 135-145 K (test code = 8055350316) 3.2 mmol/L 3.5-5.0 L CL (test code = 6529688699) 100 mmol/L 98-108 CO2 TOTAL (test code = 5343978959) 23 mmol/L 23-31 AGAP (test code = 1999892451) 2-16 BUN (test code = 5222083609) 41 mg/dL 7-23 H GLUCOSE (test code = 8200790832) 98 mg/dL 70-110 CREATININE (test code = 1.55 mg/dL 0.50-1.04 H 8969191037) TOTAL BILI (test code = 0.8 mg/dL 0.1-1.4 5668028633) CALCIUM (test code = 4038026992) 8.3 mg/dL 8.6-10.6 L T PROTEIN (test code = 0721650035) 6.9 g/dL 6.3-8.2 ALBUMIN (test code = 3837699904) 3.9 g/dL 3.5-5.0 ALK PHOS (test code = 0083602816) 89 U/L 34-122 ALTv (test code = 1742-6) 101 U/L 5-35 H AST(SGOT) (test code = 9363146186) 203 U/L 13-40 H eGFR (test code = 9837608349) mL/min/1.73m2 KYLE (test code = KYLE) Association [...] tests). Lab Interpretation (test code = Abnormal 45146-0) [facility] WITH [id number] 22:33:52 Test Item Value Reference Range Interpretation [...] RDW-SD (test code = 46.3 fL 39.0-49.9 15016-0) RDW-CV (test code = 13.5 % 12.0-15.5 788-0) PLT (test code = See_Comment L [Automated 777-3) message] The sy stem which generated this result transmitted reference range : 166 - 358 10*3/ ?L. The reference r abbey was not used to interpret this result as normal/abnormal . MPV (test code = 9.5 fL 9.5-12.9 72283-2) NRBC/100 WBC (test See_Comment [Automat ed code = 0304899392) message] The system which generated this result transmitted reference range : 0.0 - 10.0 /100 WBCs. The refer ence range was not u sed to interpret th is result as normal/abnormal . NRBC x10^3 (test code See_Comment [Auto mated = 3204623457) message] The s ystem which generated this result transmitted reference range : 10*3/?L. The reference range was not used to interpret this result as normal/abnormal . GRAN MAT (NEUT) % 58.3 % (test code = 770-8) IMM GRAN % (test code 0.80 % = 9535254635) LYMPH % (test code = 28.1 % 736-9) MONO % (test code = 12.0 % 5905-5) EOS % (test code = 0.5 % 713-8) BASO % (test code = 0.3 % 706-2) GRAN MAT x10^3(ANC) 2.29 10*3/uL 1.88-7.09 (test code = 3157740177) IMM GRAN x10^3 (test 0.03 10*3/uL 0.00-0.06 code = 7345099216) LYMPH x10^3 (test code 1.10 10*3/uL 1.32-3.29 L = 731-0) MONO x10^3 (test code 0.47 10*3/uL 0.33-0.92 = 742-7) EOS x10^3 (test code = 0.03-0.39 L 711-2) BASO x10^3 (test code 0.01-0.07 = 704-7) Lab Interpretation Abnormal (test code = 54173-4) [facility] METABOLIC PANEL (NA, K, CL, CO2, GLUCOSE, BUN, CREATININE, CA)2022-04-22 21:43:42 Test Item Value Reference Range Interpretation Comments NA (test code = 142 mmol/L 135-145 5282743492) K (test code = 3.5 mmol/L 3.5-5.0 4393669861) CL (test code = 106 mmol/L 98-108 4447019735) CO2 TOTAL (test code = 26 mmol/L 23-31 3610341663) AGAP (test code = 2-16 1625974225) BUN (test code = 29 mg/dL 7-23 H 1476907685) GLUCOSE (test code = 84 mg/dL 70-110 2126146259) CREATININE (test code = 1.16 mg/dL 0.50-1.04 H 7510865444) CALCIUM (test code = 8.2 mg/dL 8.6-10.6 L 5677963121) eGFR (test code = mL/min/1.73m2 8734115691) KYLE (test code = KYLE) Association of [...] tests). Lab Interpretation Abnormal (test code = 93881-0) [facility] WITH [id number] 21:33:01 Test Item Value Reference Range Interpretation [...] (test code = 50.7 fL 39.0-49.9 H 86697-4) RDW-CV (test code = 14.6 % 12.0-15.5 788-0) PLT (test code = See_Comment L [Automated 777-3) message] The sy stem which generated this result transmitted reference range : 166 - 358 10*3/ ?L. The reference r abbey was not used to interpret this result as normal/abnormal . MPV (test code = 8.8 fL 9.5-12.9 L 35951-4) NRBC/100 WBC (test See_Comment [Automat ed code = 9451085086) message] The system which generated this result transmitted reference range : 0.0 - 10.0 /100 WBCs. The refer ence range was not u sed to interpret th is result as normal/abnormal . NRBC x10^3 (test code See_Comment [Auto mated = 7242632746) message] The s ystem which generated this result transmitted reference range : 10*3/?L. The reference range was not used to interpret this result as normal/abnormal . GRAN MAT (NEUT) % 70.9 % (test code = 770-8) IMM GRAN % (test code 0.50 % = 9153345999) LYMPH % (test code = 17.4 % 736-9) MONO % (test code = 9.0 % 5905-5) EOS % (test code = 1.7 % 713-8) BASO % (test code = 0.5 % 706-2) GRAN MAT x10^3(ANC) 4.60 10*3/uL 1.88-7.09 (test code = 4817193618) IMM GRAN x10^3 (test 0.03 10*3/uL 0.00-0.06 code = 4952118202) LYMPH x10^3 (test code 1.13 10*3/uL 1.32-3.29 L = 731-0) MONO x10^3 (test code 0.58 10*3/uL 0.33-0.92 = 742-7) EOS x10^3 (test code = 0.11 10*3/uL 0.03-0.39 711-2) BASO x10^3 (test code 0.03 10*3/uL 0.01-0.07 = 704-7) Lab Interpretation Abnormal (test code = 96315-6) [id number]:01:07 Test Item Value Reference Range Interpretation Comments Blood Culture-Aerobic No organisms No growth Previo us (test code = 96847-6) isolated prelim inary verified result was Culture [...] Culture-Anaerobic isolated preliminar y (test code = 99328-5) verifi ed result was Culture In Progress [...] CDT Lab Interpretation Normal (test code = 75697-7) [facility] CULTURE [id number] 06:01:07 Test Item Value Reference Range Interpretation Comments Blood Culture-Aerobic No organisms No growth Previo us (test code = 89750-4) isolated prelim inary verified result was Culture [...] Culture-Anaerobic isolated preliminar y (test code = 71379-9) verifi ed result was Culture In Progress [...] CDT Lab Interpretation Normal (test code = 10160-6) [facility] CULTURE [id number] 06:01:07 Test Item Value Reference Range Interpretation Comments Blood Culture-Aerobic No organisms No growth Previo us (test code = 11155-9) isolated prelim inary verified result was Culture [...] Culture-Anaerobic isolated preliminar y (test code = 93604-2) verifi ed result was Culture In Progress [...] CDT Lab Interpretation Normal (test code = 35825-9) [id number] 10:49:10 Test Item Value Reference Range Interpretation Comments NT-proBNP (test code 2660 pg/mL See_Comment H [Autom ated = 2523775762) message] The system which generated this result transmitted reference range : <=125. The reference range was not used to interpret this result as normal/abnormal . KYLE (test code = KYLE) Biotin has been reported to cause a negative bias, interpret results relative to patient's use of biotin. Lab Interpretation Abnormal (test code = 46191-7) [id number] 10:49:10 Test Item Value Reference Range Interpretation Comments NT-proBNP (test code 2660 pg/mL See_Comment H [Autom ated = [id number]) message] The system which generated this result transmitted reference range : <=125. The reference range was not used to interpret this result as normal/abnormal . KYLE (test code = KYLE) Biotin has been reported to cause a negative bias, interpret results relative to patient's use of biotin. Lab Interpretation Abnormal (test code = 80220-6) [facility] (NA, K, CL, CO2, GLUCOSE, BUN, CREATININE, CA)2022-02-15 10:44:07 Test Item Value Reference Range Interpretation Comments NA (test code = 134 mmol/L 135-145 L 6434724056) K (test code = 3.2 mmol/L 3.5-5 L 5672945061) CL (test code = 98 mmol/L 98-108 2460987849) CO2 TOTAL (test code = 27 mmol/L 23-31 3198887624) AGAP (test code = 2-16 5178055523) BUN (test code = 19 mg/dL 7-23 2530585583) GLUCOSE (test code = 102 mg/dL 70-110 0744038785) CREATININE (test code = 0.95 mg/dL 0.5-1.04 3774469602) CALCIUM (test code = 8.5 mg/dL 8.6-10.6 L 9347164112) eGFR (test code = mL/min/1.73m2 2710261685) KYLE (test code = KYLE) Association of [...] tests). Lab Interpretation Abnormal (test code = 35535-4) [facility]2022-09-26 10:44:07 Test Item Value Reference Range Interpretation Comments MAGNESIUM (test code = 0125815077) 1.8 mg/dL 1.7-2.4 Lab Interpretation (test code = Normal 67821-0) [facility]2022-09-26 10:44:07 Test Item Value Reference Range Interpretation Comments MAGNESIUM (test code = 5707517499) 1.8 mg/dL 1.7-2.4 Lab Interpretation (test code = Normal 45750-4) [facility] METABOLIC PANEL (NA, K, CL, CO2, GLUCOSE, BUN, CREATININE, CA)2022-02-15 10:44:07 Test Item Value Reference Range Interpretation Comments NA (test code = 134 mmol/L 135-145 L 9717670182) K (test code = 3.2 mmol/L 3.5-5.0 L 3436567331) CL (test code = 98 mmol/L 98-108 7564796861) CO2 TOTAL (test code = 27 mmol/L 23-31 1868615300) AGAP (test code = 2-16 4794159431) BUN (test code = 19 mg/dL 7-23 4685226334) GLUCOSE (test code = 102 mg/dL 70-110 4804540665) CREATININE (test code = 0.95 mg/dL 0.50-1.04 0576238535) CALCIUM (test code = 8.5 mg/dL 8.6-10.6 L 1779563519) eGFR (test code = mL/min/1.73m2 4639565795) KYLE (test code = KYLE) Association of [...] tests). Lab Interpretation Abnormal (test code = 02898-8) [facility] WITH [id number] 10:12:06 Test Item Value Reference Range Interpretation [...] RDW-SD (test code = 47.8 fL 39-49.9 29291-3) RDW-CV (test code = 15.2 % 12-15.5 788-0) PLT (test code = See_Comment L [Automated 777-3) message] The sy stem which generated this result transmitted reference range : 166 - 358 10*3/ ?L. The reference r abbey was not used to interpret this result as normal/abnormal . MPV (test code = 8.9 fL 9.5-12.9 L 84597-0) NRBC/100 WBC (test See_Comment [Automat ed code = 1528573056) message] The system which generated this result transmitted reference range : 0.0 - 10.0 /100 WBCs. The refer ence range was not u sed to interpret th is result as normal/abnormal . NRBC x10^3 (test code See_Comment [Auto mated = 4923019838) message] The s ystem which generated this result transmitted reference range : 10*3/?L. The reference range was not used to interpret this result as normal/abnormal . GRAN MAT (NEUT) % 65.9 % (test code = 770-8) IMM GRAN % (test code 0.30 % = 7841986266) LYMPH % (test code = 21.0 % 736-9) MONO % (test code = 10.1 % 5905-5) EOS % (test code = 2.4 % 713-8) BASO % (test code = 0.3 % 706-2) GRAN MAT x10^3(ANC) 2.49 10*3/uL 1.88-7.09 (test code = 5645055150) IMM GRAN x10^3 (test 0-0.06 code = 8439869813) LYMPH x10^3 (test code 0.79 10*3/uL 1.32-3.29 L = 731-0) MONO x10^3 (test code 0.38 10*3/uL 0.33-0.92 = 742-7) EOS x10^3 (test code = 0.09 10*3/uL 0.03-0.39 711-2) BASO x10^3 (test code 0.01-0.07 = 704-7) Lab Interpretation Abnormal (test code = 71466-8) [facility] WITH [id number] 10:12:06 Test Item Value Reference Range Interpretation Comments WBC (test code = See_Comment L [Automated 0490-2) message] The sy stem which generated this result transmitted reference range : 4.30 - 11.10 10*3/?L. The reference range was not used to interpret this result as normal/abnormal . RBC (test code = See_Comment L [Automated 869-8) message] The sy stem which generated this [...] RDW-SD (test code = 47.8 fL 39.0-49.9 60958-9) RDW-CV (test code = 15.2 % 12.0-15.5 788-0) PLT (test code = See_Comment L [Automated 777-3) message] The sy stem which generated this result transmitted reference range : 166 - 358 10*3/ ?L. The reference r abbey was not used to interpret this result as normal/abnormal . MPV (test code = 8.9 fL 9.5-12.9 L 68452-3) NRBC/100 WBC (test See_Comment [Automat ed code = 8047739950) message] The system which generated this result transmitted reference range : 0.0 - 10.0 /100 WBCs. The refer ence range was not u sed to interpret th is result as normal/abnormal . NRBC x10^3 (test code See_Comment [Auto mated = 6671689541) message] The s ystem which generated this result transmitted reference range : 10*3/?L. The reference range was not used to interpret this result as normal/abnormal . GRAN MAT (NEUT) % 65.9 % (test code = 770-8) IMM GRAN % (test code 0.30 % = 8975922262) LYMPH % (test code = 21.0 % 736-9) MONO % (test code = 10.1 % 5905-5) EOS % (test code = 2.4 % 713-8) BASO % (test code = 0.3 % 706-2) GRAN MAT x10^3(ANC) 2.49 10*3/uL 1.88-7.09 (test code = 9914559669) IMM GRAN x10^3 (test 0.00-0.06 code = 3525478866) LYMPH x10^3 (test code 0.79 10*3/uL 1.32-3.29 L = 731-0) MONO x10^3 (test code 0.38 10*3/uL 0.33-0.92 = 742-7) EOS x10^3 (test code = 0.09 10*3/uL 0.03-0.39 711-2) BASO x10^3 (test code 0.01-0.07 = 704-7) Lab Interpretation Abnormal (test code = 11571-1) [facility] WITH [id number] 11:18:28 Test Item Value Reference Range Interpretation [...] RDW-SD (test code = 49.5 fL 39-49.9 50772-1) RDW-CV (test code = 15.5 % 12-15.5 788-0) PLT (test code = See_Comment L [Automated 777-3) message] The sy stem which generated this result transmitted reference range : 166 - 358 10*3/ ?L. The reference r abbey was not used to interpret this result as normal/abnormal . MPV (test code = 11.4 fL 9.5-12.9 24529-3) IPF % (test code = 8.7 % 1.3-7.7 H Platelet count 1869234540) measured by fluorescence method. NRBC/100 WBC (test See_Comment [Automat ed code = 9843584607) message] The system which generated this result transmitted reference range : 0.0 - 10.0 /100 WBCs. The refer ence range was not u sed to interpret th is result as normal/abnormal . NRBC x10^3 (test code See_Comment [Auto mated = 4690777286) message] The s ystem which generated this result transmitted reference range : 10*3/?L. The reference range was not used to interpret this result as normal/abnormal . GRAN MAT (NEUT) % 62.0 % (test code = 770-8) IMM GRAN % (test code 0.80 % = 8450121788) LYMPH % (test code = 22.2 % 736-9) MONO % (test code = 9.6 % 5905-5) EOS % (test code = 5.1 % 713-8) BASO % (test code = 0.3 % 706-2) GRAN MAT x10^3(ANC) 2.21 10*3/uL 1.88-7.09 (test code = 7052194710) IMM GRAN x10^3 (test 0.03 10*3/uL 0-0.06 code = 6161447298) LYMPH x10^3 (test code 0.79 10*3/uL 1.32-3.29 L = 731-0) MONO x10^3 (test code 0.34 10*3/uL 0.33-0.92 = 742-7) EOS x10^3 (test code = 0.18 10*3/uL 0.03-0.39 711-2) BASO x10^3 (test code 0.01-0.07 = 704-7) POLYCHROMASIA (test 2+ See_Comment [Automa arpit code = 32735-7) message] The system which generated this result [...] . Lab Interpretation Abnormal (test code = 41128-6) [facility] METABOLIC PANEL (NA, K, CL, CO2, GLUCOSE, BUN, CREATININE, CA)2022-02-13 10:39:07 Test Item Value Reference Range Interpretation Comments NA (test code = 136 mmol/L 135-145 2655917926) K (test code = 4.1 mmol/L 3.5-5 9437849736) CL (test code = 102 mmol/L 98-108 5523883194) CO2 TOTAL (test code = 27 mmol/L 23-31 0055202123) AGAP (test code = 2-16 8418207194) BUN (test code = 22 mg/dL 7-23 9973267955) GLUCOSE (test code = 94 mg/dL 70-110 0217997285) CREATININE (test code = 0.94 mg/dL 0.5-1.04 8608789808) CALCIUM (test code = 8.1 mg/dL 8.6-10.6 L 1277778493) eGFR (test code = mL/min/1.73m2 2777738163) KYLE (test code = KYLE) Association of [...] tests). Lab Interpretation Abnormal (test code = 62868-8) [facility] 01:50:10 Test Item Value Reference Range Interpretation Comments Height (test code = in 5211354702) Weight (test code = lbs 5652600362) Systolic BP (test code mmHg = 5422331290) Diastolic BP (test code mmHg = 4237057792) Heart Rate (test code = bpm 7925587640) BSA (test code = 1.85 m2 7367534200) IVS (test code = 1.22 cm 6413960626) Interventricular Septum 1.22 cm Diastolic Thickness by 2D (test code = 6541233) LVIDD (test code = 5.00 cm 9177318959) Left Ventricular End 117.9 mL Diastolic Volume by Teichholz Method (test code = 7350623) LVPWD (test code = 1.22 cm 9404455603) PW (test code = 1.22 cm 0.6-1.3 7149236038) EF(Teich) (test code = 74.60 % 8387524755) LVIDS (test code = 2.80 cm 2449957113) Left Ventricular End 29.9 mL Systolic Volume by Teichholz Method (test code = 4247673) FS (test code = 44 % 5944702585) EF - 2D (test code = 74.60 % 18303010) LVOT diameter (test 2.16 cm code = 2881453999) LVOT area (test code = 3.70 cm2 5065605280) Ao root diam (test code 3.40 cm = 5422294389) Aortic root (test code 3.4 cm = 0724414422) Ao root annulus (test 3.4 cm code = 1694854778) LA size (test code = 3.4 cm 4855081585) TR Peak Spencer (test code 330.0 cm/s = 6624795934) Triscuspid Valve mmHg Regurgitation Peak Gradient (test code = 1505936624) PV REGURGITATION PEAK mmHg GRADIENT (test code = 9978529689) PI dec slope (test code 137.20 cm/s2 = 9653661474) LAV(MOD-sp4) (test code 102.90 mL = 0995312305) MV Peak E Spencer (test 84.1 cm/s code = 9427044118) MV Peak A Spencer (test 40.1 cm/s code = 9428258424) E/A ratio (test code = ratio 9163046922) MV valve area p 1/2 3.70 cm2 method (test code = 9364063855) MV dec slope (test code 413.00 cm/s2 = 4328653122) MV P1/2t max spencer (test 83.70 cm/s code = 2803725331) MV Prop V (test code = 41.80 cm/s 9321067431) Tapse (test code = 1.83 cm 1255230407) LVOT stroke volume 96.90 cm3 (test code = 2079941945) LVOT peak spencer (test 125.5 cm/s code = 0234236846) LVOT mn grad (test code mmHg = 0478621709) AV LVOT peak gradient mmHg (test code = 5784349007) LVOT peak VTI (test 26.4 cm code = 9358930700) LV V1 mean (test code = 78.10 cm/s 7145264002) Aortic valve mean 103.7 cm/s velocity (test code = 3940237931) Ao peak spencer (test code 165.6 cm/s = 0330934608) Ao VTI (test code = 37.2 cm 4744933993) AV area by cont VTI 2.6 cm2 (test code = 1818006517) AV area peak spencer (test 2.8 cm2 code = 3951816091) Ao max PG (test code = 11.00 mm[Hg] 3455289923) AV peak gradient (test mmHg code = 3778454338) AV valve area (test 2.60 cm2 code = 6698177512) AV mean gradient (test mmHg code = 7307042241) LA Volume Index (BP) 55.2 mL/m2 (test code = 6049567593) LA volume (BP) (test 102.1 mL code = 5546990721) LAV(MOD-sp2) (test code 86.10 mL = 6333598299) A2C EF (test code = 61.20 % 7015245418) EF(sp2-el) (test code = 61.60 % 4834027512) SV(MOD-sp2) (test code 47.10 mL = 7024252598) LV Diastolic Volume 70.7 mL (BP) (test code = 6894463895) A4C EF (test code = 53.00 % 7452913996) EF(MOD-bp) (test code = 56.70 % 9776218351) EF(sp4-el) (test code = 53.90 % 5995958235) LV Systolic Volume (BP) 30.6 mL (test code = 8393165936) SV(MOD-bp) (test code = 40.10 mL 8974415696) SV(MOD-sp4) (test code 32.40 mL = 6803502483) SV(sp4-el) (test code = 33.10 mL 9115231315) EF (test code = 9001008984) Left Ventricular Stroke 40.1 mL Volume by 2-D Biplane-MOD (test code = 9766790) LV Diastolic Volume 38.2 mL/m2 Index (BP) (test code = 9381754827) LV Systolic Volume 16.5 mL/m2 Index (BP) (test code = 1621567522) Radiology Study observation (narrative) (test code = 13626-3) KYLE (test code = KYLE) ?Left?Ventricle: Left [...] 1.00The left ventricular wall motion is normal. [facility] [id number] 05:45:01 Test Item Value Reference Interpretation Comments Range TROPONIN I (test See_Comment [Automated code = 4721713151) message] The system which generated this result [...] biotin. Lab Interpretation Normal (test code = 83103-5) [facility] [id number] 05:41:40 Test Item Value Reference Range Interpretation Comments NT-proBNP (test code 4250 pg/mL See_Comment H [Autom ated = 7064272707) message] The system which generated this result transmitted reference range : <=125. The reference range was not used to interpret this result as normal/abnormal . KYLE (test code = KYLE) Biotin has been reported to cause a negative bias, interpret results relative to patient's use of biotin. Lab Interpretation Abnormal (test code = 53056-7) [facility] [id number] 05:35:21 Test Item Value Reference Range Interpretation Comments APTT Patient (test See_Comment [Automat ed code = 3173-2) message] The system which generated this result transmitted reference range : 23 - 38 Seconds . The reference range was not used to interpr et this result as normal/abnormal . KYLE (test code = KYLE) The [facility] patient population mean normal value for aPTT is 30 seconds. Lab Interpretation Normal (test code = 15681-5) [facility] [id number] 05:35:21 Test Item Value Reference Range Interpretation Comments APTT Patient (test See_Comment [Automat ed code = 3173-2) message] The system which generated this result transmitted reference range : 23 - 38 Seconds . The reference range was not used to interpr et this result as normal/abnormal . KYLE (test code = KYLE) The [facility] patient population mean normal value for aPTT is 30 seconds. Lab Interpretation Normal (test code = 25243-2) [facility] / [id number] 05:33:21 Test Item Value Reference Range Interpretation [...] tions. Lab Interpretation (test Normal code = 74911-3) [facility]. METABOLIC PANEL (40289)2022-02-11 05:33:21 Test Item Value Reference Range Interpretation Comments NA (test code = 137 mmol/L 135-145 3023305864) K (test code = 4.3 mmol/L 3.5-5 2101936109) CL (test code = 103 mmol/L 98-108 7206777233) CO2 TOTAL (test code = 25 mmol/L 23-31 9470698015) AGAP (test code = 2-16 5650628194) BUN (test code = 19 mg/dL 7-23 6156398007) GLUCOSE (test code = 120 mg/dL 70-110 H 3930907939) CREATININE (test code = 1.15 mg/dL 0.5-1.04 H 0075534125) TOTAL BILI (test code = 0.9 mg/dL 0.1-1.7 0374705465) CALCIUM (test code = 8.9 mg/dL 8.6-10.6 1614446235) T PROTEIN (test code = 6.6 g/dL 6.3-8.2 9506376688) ALBUMIN (test code = 4.0 g/dL 3.5-5 3358378384) ALK PHOS (test code = 73 U/L 34-122 8395251106) ALTv (test code = 18 U/L 5-35 1742-6) AST(SGOT) (test code = 31 U/L 13-40 0229955216) eGFR (test code = mL/min/1.73m2 1426348626) KYLE (test code = KYLE) Association of [...] tests). Lab Interpretation Abnormal (test code = 27621-6) [facility]. METABOLIC PANEL (04616)2022-02-11 05:33:21 Test Item Value Reference Range Interpretation Comments NA (test code = 137 mmol/L 135-145 5494133294) K (test code = 4.3 mmol/L 3.5-5.0 6894033753) CL (test code = 103 mmol/L 98-108 3144152458) CO2 TOTAL (test code = 25 mmol/L 23-31 8854991072) AGAP (test code = 2-16 0963538893) BUN (test code = 19 mg/dL 7-23 5245333846) GLUCOSE (test code = 120 mg/dL 70-110 H 9585577680) CREATININE (test code = 1.15 mg/dL 0.50-1.04 H 6355944967) TOTAL BILI (test code = 0.9 mg/dL 0.1-1.5 2396853041) CALCIUM (test code = 8.9 mg/dL 8.6-10.6 0072133796) T PROTEIN (test code = 6.6 g/dL 6.3-8.2 2292893025) ALBUMIN (test code = 4.0 g/dL 3.5-5.0 4087840385) ALK PHOS (test code = 73 U/L 34-122 2072280945) ALTv (test code = 18 U/L 5-35 1742-6) AST(SGOT) (test code = 31 U/L 13-40 7808626546) eGFR (test code = mL/min/1.73m2 4660494666) KYLE (test code = KYLE) Association of [...] tests). Lab Interpretation Abnormal (test code = 58320-5) [facility] / [id number] 05:33:21 Test Item Value Reference Range Interpretation Comments PROTIME PATIENT (test See_Comment [Auto mated message] code = 5964-2) The system [employer] generated this result transmitted ref erence range: 12.0 - 1 4.7 Seconds. The re ference range was not u sed to interpret this result as normal/abnor mal. INR (test code = 6301-6) Nor mal INR <1.1; Warfarin Therap eutic range 2.0 to 3. 0 or 2.5 to 3.5, dep ending upon the indica tions. Lab Interpretation (test Normal code = 87352-4) [facility] WITH [id number] 05:14:37 Test Item Value Reference Range Interpretation [...] RDW-SD (test code = 47.9 fL 39-49.9 31473-2) RDW-CV (test code = 14.9 % 12-15.5 788-0) PLT (test code = See_Comment L [Automated 777-3) message] The sy stem which generated this result transmitted reference range : 166 - 358 10*3/ ?L. The reference r abbey was not used to interpret this result as normal/abnormal . MPV (test code = 9.1 fL 9.5-12.9 L 95425-1) NRBC/100 WBC (test See_Comment [Automat ed code = 1200518381) message] The system which generated this result transmitted reference range : 0.0 - 10.0 /100 WBCs. The refer ence range was not u sed to interpret th is result as normal/abnormal . NRBC x10^3 (test code See_Comment [Auto mated = 4104225913) message] The s ystem which generated this result transmitted reference range : 10*3/?L. The reference range was not used to interpret this result as normal/abnormal . GRAN MAT (NEUT) % 78.5 % (test code = 770-8) IMM GRAN % (test code 0.20 % = 7671636096) LYMPH % (test code = 11.6 % 736-9) MONO % (test code = 8.4 % 5905-5) EOS % (test code = 1.1 % 713-8) BASO % (test code = 0.2 % 706-2) GRAN MAT x10^3(ANC) 3.45 10*3/uL 1.88-7.09 (test code = 3110094981) IMM GRAN x10^3 (test 0-0.06 code = 9588055674) LYMPH x10^3 (test code 0.51 10*3/uL 1.32-3.29 L = 731-0) MONO x10^3 (test code 0.37 10*3/uL 0.33-0.92 = 742-7) EOS x10^3 (test code = 0.05 10*3/uL 0.03-0.39 711-2) BASO x10^3 (test code 0.01-0.07 = 704-7) Lab Interpretation Abnormal (test code = 65597-8) [facility] Coronavirus 2019 Lwzgluq2886-80-55 18:08:00 Test Item Value Reference Range Interpretation [...] det ection of nucleic acids f rom uwtOJXP-ShB-9 v irus and diagnosis of SA RS-CoV-2 virusinfection. It is an Emergency Use Authorization ( EUA) testauthorized by the U.S. FDA. BASIC METABOLIC [id number] 09:37:00 Test Item Value Reference Range Interpretation [...] = 9.0 mg/dL 8.0-10.5 N CA) PROTHROMBIN [id number] 09:32:00 Test Item Value Reference Range Interpretation [...] (to prevent recurrent infar ct). 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 [facility] - XR CHEST 1 [id number] 00:00:00 [facility] : 1955 Sex: F FAX: Carmenza Kelly [facility] [phone] [place]: St: ADM FAX: Mike Scales MD [phone] FAX: Bahman Chopra [phone] Name: MARJAN FLEMING [facility] : 1955 Age/S: 66/F [address] [place] [address] Unit #: [id number] Loc: [place] [address] 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 CC: UrmilaFrancisco Kristen Rahman DO; Mike Lund MD; Bahman Chopra Technologist: RT Taylor(R) Trnscrd Date/Time/By: 06/17/2021 (8543) : By: IselaKWL Orig Print D/T: S: 06/17/2021 (3783) PAGE 1 Signed ReportCOVID 19 Asymptomatic IH [id number] 12:29:00 Test Item Value Reference Range Interpretation [...] viable (live) and non-viable,SARS -CoV, and SARS-CoV-2. Mitlon t performance dep ends on theamount of vi ethel (antigen) in th e sample.This milton t has not been FDA cleare d or approved; the t est hasbeen authori zed by FDA under an Em ergency Use Authorizati on(EUA) for use by labo ratories certified under the CLIA thatmeet the requirements to perform moderate, high or waivedcomplexit y tests. BASIC METABOLIC [id number] 11:37:00 Test Item Value Reference Range Interpretation [...] code = 9.0 mg/dL 8.0-10.5 N CA) [id number] 11:37:00 Test Item Value Reference Range Interpretation Comments PREALBUMIN (test code = PREALB) 24.3 mg/dL 16.0-40.0 N PROTHROMBIN [id number] 11:03:00 Test Item Value Reference Range Interpretation [...] (to prevent recurrent infar ct). CBC W/AUTO [id number] 10:59:00 Test Item Value Reference Range Interpretation [...] 0.0-0.1 N NRBC#) - XR CHEST 2 [id number] 00:00:00 [facility] ELEN GARCIAName: MARJAN FLEMING : 1955 Sex: F FAX: Carmenza Kelly DO [phone] [place]: St: PRE FAX: Mike Scales MD [phone] Name: MARJAN FLEMING [facility] Elen Garcia : 1955 Age/S: 66/F [address] [place] [address] Unit #: [id number] Loc: [place] [address] Phys: Mike Lund MD Acct: [id number] Dis Date: Status: PRE [facility] PHONE #: [phone] Exam Date : 06/16/2021 1120 FAX #: [phone] Reason: PREOP EXAMS: CPT CODE: [id number] XR CHEST 2 V 45904 PROCEDURE INFORMATION: Exam: XR Chest Exam date [...] Technologist: Danielle Nix RT(R) Trnscrd Date/Time/By: 06/16/2021 (8856) : By: [email or web address] Orig Print D/T: S: 06/16/2021 (4273) PAGE 1 Signed ReportGastrointestinal [id number] 04:35:05 Test Item Value Reference Interpretation Comments [...] Rotavirus PCR (test Not Detected code = 6001278) Salmonella PCR (test Not Detected code = [...] PCR Not Detected (test code = 7124) [facility] [id number] 19:30:47 Test Item Value Reference Range Interpretation Comments Case number (test [id number] code = 7182292) Surgical pathology See link below for PDF report (test code = Lab Report 2255) Result status (test This is Supplemental code = 0499861) Report for [id number] [facility]2021-04-09 16:31:00 Test Item Value Reference Range Interpretation Comments POC Activated Clotting Time (test code 153 s = POC Activated Clotting Time) [facility]JjpfykzKMNCJDVHAX6237-64-14 16:31:00 Test Item Value Reference Range Interpretation Comments POC Activated Clotting Time (test code 153 s = POC Activated Clotting Time) [place] [id number] 16:31:00 Test Item Value Reference Range Interpretation Comments POC Activated Clotting Time (test code 153 s = POC Activated Clotting Time) [facility]neyLggohtmRURZVVHDVV8262-04-57 16:31:00 Test Item Value Reference Range Interpretation Comments POC Activated Clotting Time (test code 153 s = POC Activated Clotting Time) [facility]neyGzxxsvbLDGSSZVYKI5919-35-26 16:31:00 Test Item Value Reference Range Interpretation Comments POC Activated Clotting Time (test code 153 s = POC Activated Clotting Time) [facility] McKinneyTokxrrjYRCSWZVFLM3220-49-07 16:31:00 Test Item Value Reference Range Interpretation Comments POC Activated Clotting Time (test code 153 s = POC Activated Clotting Time) [facility] McKinneyFcblvalPAHEWEJZYJ1601-51-92 16:31:00 Test Item Value Reference Range Interpretation Comments POC Activated Clotting Time (test code 153 s = POC Activated Clotting Time) [facility] McKinneyQfwlyekQZDLPSOSJY1717-12-24 14:37:00 Test Item Value Reference Range Interpretation Comments POC Activated Clotting Time (test code 454 s = POC Activated Clotting Time) [place] [id number] 14:37:00 Test Item Value Reference Range Interpretation Comments POC Activated Clotting Time (test code 454 s = POC Activated Clotting Time) [place] 977141-04-09 14:37:00 Test Item Value Reference Range Interpretation Comments POC Activated Clotting Time (test code 454 s = POC Activated Clotting Time) [place] [address]-04-09 14:37:00 Test Item Value Reference Range Interpretation Comments POC Activated Clotting Time (test code 454 s = POC Activated Clotting Time) [place] 977141-04-09 14:37:00 Test Item Value Reference Range Interpretation Comments POC Activated Clotting Time (test code 454 s = POC Activated Clotting Time) [facility]neyPxjzdjoHNMREZYSWQ0091-89-98 14:37:00 Test Item Value Reference Range Interpretation Comments POC Activated Clotting Time (test code 454 s = POC Activated Clotting Time) [facility] McKinneyNsoxefcSGUIJGEUXN4706-21-37 14:37:00 Test Item Value Reference Range Interpretation Comments POC Activated Clotting Time (test code 454 s = POC Activated Clotting Time) [facility] McKinneyUrrznqzXDFKMLGVVO5591-17-45 14:13:00 Test Item Value Reference Range Interpretation Comments POC Activated Clotting Time (test code 354 s = POC Activated Clotting Time) [facility] McKinneyFjbvrfcSEJGDYDDSI6874-34-92 14:13:00 Test Item Value Reference Range Interpretation Comments POC Activated Clotting Time (test code 354 s = POC Activated Clotting Time) [facility] McKinneyIlsqlywSFMYXHRPBP5459-83-04 14:13:00 Test Item Value Reference Range Interpretation Comments POC Activated Clotting Time (test code 354 s = POC Activated Clotting Time) [facility] McKinneyMrfdporKIBYSTEYIV6729-00-75 14:13:00 Test Item Value Reference Range Interpretation Comments POC Activated Clotting Time (test code 354 s = POC Activated Clotting Time) [facility] McKinneyYklnszoSSXTFQNOUU0294-69-45 14:13:00 Test Item Value Reference Range Interpretation Comments POC Activated Clotting Time (test code 354 s = POC Activated Clotting Time) [facility] McKinneyHowzjdyVMEVGBNRYT4213-77-20 14:13:00 Test Item Value Reference Range Interpretation Comments POC Activated Clotting Time (test code 354 s = POC Activated Clotting Time) [facility] McKinneyLuowmrjZNIBNPWZMS2552-35-36 14:13:00 Test Item Value Reference Range Interpretation Comments POC Activated Clotting Time (test code 354 s = POC Activated Clotting Time) [facility] [id number] 10:37:00Negative (08/29/20 5:37 AM) [facility] [id number] 10:37:62279Jsxtjajp HermannCHEM PANEL 2020-08-29 10:37:0028[facility] [id number] 10:37:001.01[facility] [id number] 10:37:68951Dnrtglhc HermannCHEM [id number] 10:37:003.8[facility]annCHEM CJHRO4781-19-72 10:37:98442Edfigzci HermannCHEM ZIAKF8338-24-59 10:37:0028[facility]annCHEM OJFEU8227-27-14 10:37:009.8 [facility]annCHE[facility] IKHVR8405-16-48 10:37:0011.8[facility] HermannCHEM PANEL 2020-08-29 10:37:0059[facility] HermannCHEM AYWOD1296-00-95 10:37:002.9[facility] FngncjjDWIQVRKKWJ7545-17-56 10:37:006.8[facility] UiaotujROEFPJMEOP2977-17-47 10:37:004.47[facility] MyrumuaDARRNNCYVI8388-82-59 10:37:0010.6[facility] RLZCULJGPT3072-26-35 10:37:0034.0[facility] CywfcerQKWTRZAVEF0641-22-75 10:37:00 76.1[facility] OsealeoYUQXRUDEEA2329-83-33 10:37:00 Test Item Value Reference Range Interpretation Comments MCH (test code = MCH) 23.8 pg 27.0-31.0 [facility] AmwkvtbBKZXBWYBTW1488-95-27 10:37:0031.3[facility] HermannHEMATOLOGY 2020-08-29 10:37:0018.2[facility] BgcoynhTYWXPAKVPO9831-64-61 10:37:31882Qvphfxen GgjbxidZKBFXNINEI6321-78-69 10:37:007.5[facility] PofqqdmQYKCGUQVNH5381-60-52 10:37:00 Test Item Value Reference Range Interpretation Comments PT (test code = PT) 12.8 s 12.0-14.7 [facility] CekgrmtONDQOKETNR8312-40-10 10:37:00 Test Item Value Reference Range Interpretation Comments INR (test code = INR) 0.97 1 0.85-1.17 [facility] NcitacnCEIPIQFLIV2973-97-30 10:37:00 Test Item Value Reference Range Interpretation Comments PTT (test code = PTT) 25.0 s 22.9-35.8 [facility] IxnubtuSAEOAEQZRC4987-70-90 10:37:0070.5[facility] HermannHEMATOLOGY 2020-08-29 10:37:0018.8[facility] LkigxvgMQDQQMZLLT4350-30-95 10:37:009.5[facility] SmeviqeJHQWTHIUWR7362-19-25 10:37:000.9[facility] ZrwdgpiZDWOKTUWXC1917-69-89 10:37:000.3[facility] QlafdjgPUNXHZZKWI7026-26-32 10:37:004.8[facility] VCGATNXKLH4719-73-96 10:37:001.3[facility] MjydekxYFKGMUUQEZ7643-24-20 10:37:000.6 [facility] IatezciNGGPSPMJSZ0565-50-00 10:37:000.1[facility] HermannHEMATOLOGY 2020-08-29 10:37:001+ *ABN*(08/29/20 5:37 AM)[facility] WgdssssYYGEROMMBN6801-75-26 10:37:00Not Detected (08/29/20 5:37 AM)[facility] HermannBLOOD BANK RESULTS 2020-08-29 10:37:00Negative (08/29/20 5:37 AM)[facility] HermannCHEM FOFRV1037-88-77 10:37:18584Jdanpaae HermannCHEM SVYEH9415-66-52 10:37:0028[facility] HermannCHEM VVPQT5998-88-11 10:37:001.01[facility] HermannCHEM PESQN4721-51-01 10:37:84238 [facility]annCHEM HJPJZ6542-24-79 10:37:003.8[facility] HermannCHEM PANEL 2020-08-29 10:37:81854Bimxcnib HermannCHEM XNILG2164-99-14 10:37:0028[facility] HermannCHEM CPOYD2471-76-65 10:37:009.8[facility] HermannCHEM WVKAB3890-90-98 10:37:0011.8[facility] HermannCHEM NDEUG5592-82-26 10:37:0059[facility] HermannCHEM KOAGI9105-21-24 10:37:002.9[facility] LlthlgoGTPOXXAFTJ9731-77-46 10:37:006.8 [facility] TzgilkuQNMHFECRFI7315-39-01 10:37:004.47[facility] HermannHEMATOLOGY 2020-08-29 10:37:0010.6[facility] IycnxicFBAIDEIXNL6695-54-36 10:37:0034.0[facility] PthnxmuACXTVEKFTQ2805-81-50 10:37:0076.1[facility] FymmguiJPOXKCFJNI7685-32-65 10:37:00 Test Item Value Reference Range Interpretation Comments MCH (test code = MCH) 23.8 pg 27.0-31.0 [facility] RuspruxSXIFJXEXSV5934-37-52 10:37:0031.3[facility] HermannHEMATOLOGY 2020-08-29 10:37:0018.2[facility] DxywtkyPTQSAUMARG2889-60-37 10:37:25331Dtrawano NrixypdEBLVKVALEJ6434-25-35 10:37:007.5[facility] RpfqajpUPZRZLFEHI7825-81-47 10:37:00 Test Item Value Reference Range Interpretation Comments PT (test code = PT) 12.8 s 12.0-14.7 [facility] IdhcvseOQQHWUAJCQ8494-58-33 10:37:00 Test Item Value Reference Range Interpretation Comments INR (test code = INR) 0.97 1 0.85-1.17 [facility] KfangngGUBJHTXXNR9495-76-95 10:37:00 Test Item Value Reference Range Interpretation Comments PTT (test code = PTT) 25.0 s 22.9-35.8 [facility] OdzqoadUHOTJNDXSS1557-04-41 10:37:0070.5[facility] HermannHEMATOLOGY 2020-08-29 10:37:0018.8[facility] VuicqxuISHLIWPSGK7878-63-06 10:37:009.5[facility] WihlcuxPIFKBFOCBE2650-84-42 10:37:000.9[facility] CkrliydXIIGLGGGYP0130-49-21 10:37:000.3[facility] RpkrqjlBPUEPPGEYH5612-79-08 10:37:004.8[facility] JOVKLVEHIF6273-54-48 10:37:001.3[facility] FpfoatbSNERGGICDX0490-83-48 10:37:000.6 [facility] BxqowkqIHJSOCNSWB6128-78-89 10:37:000.1[facility] HermannHEMATOLOGY 2020-08-29 10:37:001+ *ABN*(08/29/20 5:37 AM)[facility] MdaqyzzZUIWHYSYIZ2821-38-16 10:37:00Not Detected (08/29/20 5:37 AM)[facility] HermannBLOOD BANK RESULTS 2020-08-29 10:37:00Negative (08/29/20 5:37 AM)[facility] HermannCHEM EUWEM2559-10-31 10:37:74418Vpmjictn HermannCHEM FVMLG9168-88-52 10:37:0028[facility] HermannCHEM IVSVT9302-20-58 10:37:001.01[facility] HermannCHEM JAFQE1543-96-73 10:37:58123 [facility] HermannCHEM DABJX1430-66-17 10:37:003.8[facility] HermannCHEM PANEL 2020-08-29 10:37:78770Xkgrxajj HermannCHEM GIQIO2870-42-85 10:37:0028[facility] HermannCHEM PANOT9496-19-76 10:37:009.8[facility] HermannCHEM SYRBS6649-20-49 10:37:0011.8[facility] HermannCHEM XCYVC7414-31-94 10:37:0059[facility] HermannCHEM YYUIJ9198-19-89 10:37:002.9[facility] ZaywtiiNZBUBUENSM3415-19-73 10:37:006.8 [facility] MgptkhwNBPKPLNMNM4742-49-25 10:37:004.47[facility] HermannHEMATOLOGY 2020-08-29 10:37:0010.6[facility] BetcfosAXUECQOPSC8822-61-91 10:37:0034.0[facility] RnfpcffEAPIEXIEUU6170-88-12 10:37:0076.1[facility] UazztxhOAVODXQENP0179-15-91 10:37:00 Test Item Value Reference Range Interpretation Comments MCH (test code = MCH) 23.8 pg 27.0-31.0 [facility] HmnmxvuRWVQFKNFBN0989-56-35 10:37:0031.3[facility] HermannHEMATOLOGY 2020-08-29 10:37:0018.2[facility] KzrgsxdKKHKWPNSYZ9020-26-49 10:37:18088Nnkuzcxk OikatyoPNTCHPTWSP3040-30-06 10:37:007.5[facility] FaqbnpnNIVMNANUHK7345-74-05 10:37:00 Test Item Value Reference Range Interpretation Comments PT (test code = PT) 12.8 s 12.0-14.7 [facility] TmrbjyhNLIJUGOZAM2950-89-14 10:37:00 Test Item Value Reference Range Interpretation Comments INR (test code = INR) 0.97 1 0.85-1.17 [facility] KwusgpeZTMBNZEMCW5880-38-30 10:37:00 Test Item Value Reference Range Interpretation Comments PTT (test code = PTT) 25.0 s 22.9-35.8 [facility] WytxuziTUYYKUWBFL1247-48-29 10:37:0070.5[facility] HermannHEMATOLOGY 2020-08-29 10:37:0018.8[facility] OtmvvxySJQUDGRXTU4344-76-32 10:37:009.5[facility] GinnwswMGRUHYSLIZ1771-77-61 10:37:000.9[facility] VuslwqaECGFRPIPFO0860-77-47 10:37:000.3[facility] RgcknzjXMJIFPGWWH5023-84-33 10:37:004.8[facility] GFQHJRXIRB6039-83-28 10:37:001.3[facility] OnbiitmNOOFXAWGIB2568-51-66 10:37:000.6 [facility] EjubqroPSXRAJNYPA1643-30-48 10:37:000.1[facility] HermannHEMATOLOGY 2020-08-29 10:37:001+ *ABN*(08/29/20 5:37 AM)[facility] AhhnqolVRJUSSULZV1215-33-63 10:37:00Not Detected (08/29/20 5:37 AM)[facility] HermannBLOOD BANK RESULTS 2020-08-29 10:37:00Negative (08/29/20 5:37 AM)[facility] HermannCHEM TPPHN4594-35-12 10:37:38166Mnjhreqs HermannCHEM PQSNB0214-67-40 10:37:0028[facility] HermannCHEM HVTXS9740-76-96 10:37:001.01[facility] HermannCHEM VPWJR9863-10-58 10:37:54136 [facility] HermannCHEM TZMIE4895-87-72 10:37:003.8[facility] HermannCHEM PANEL 2020-08-29 10:37:84887Ouzsyeve HermannCHEM VAGLE4025-42-98 10:37:0028[facility] HermannCHEM PARED8528-58-65 10:37:009.8[facility] HermannCHEM HKPIS3443-75-03 10:37:0011.8[facility] HermannCHEM TLJHB6399-50-03 10:37:0059[facility] HermannCHEM JNFTY9318-56-89 10:37:002.9[facility] EythfwwTSIBQVAZSZ2610-33-34 10:37:006.8 [facility] QjsnpktAOFTBIZGRU6676-07-33 10:37:004.47[facility] HermannHEMATOLOGY 2020-08-29 10:37:0010.6[facility] VgwnowvHIUFUVEAMX2699-54-14 10:37:0034.0[facility] IlzjtisQCFBFYDOGK2872-78-30 10:37:0076.1[facility] NrpwfjoFJBKNAEZHW4038-48-05 10:37:00 Test Item Value Reference Range Interpretation Comments MCH (test code = MCH) 23.8 pg 27.0-31.0 [facility] OpkttynCEKUOVIFJZ0823-91-16 10:37:0031.3[facility] HermannHEMATOLOGY 2020-08-29 10:37:0018.2[facility] QcjxjyvUNVDROPHQB2718-68-74 10:37:21719Mtayjirq SgicaqcWICITCBFAV6444-39-79 10:37:007.5[facility] VuzdlavWTFMRFYZMV8045-34-43 10:37:00 Test Item Value Reference Range Interpretation Comments PT (test code = PT) 12.8 s 12.0-14.7 [facility] GaogsbmWQLOZKYUNF4341-25-70 10:37:00 Test Item Value Reference Range Interpretation Comments INR (test code = INR) 0.97 1 0.85-1.17 [facility]kzxorjGKVCYOHCUL4160-23-66 10:37:00 Test Item Value Reference Range Interpretation Comments PTT (test code = PTT) 25.0 s 22.9-35.8 [facility] ThqbemcNOLAEDGNKY4460-48-92 10:37:0070.5[facility] HermannHEMATOLOGY 2020-08-29 10:37:0018.8[facility] NbbxlceEOHBJIXTBM8687-23-17 10:37:009.5[facility] JeywxhwOFOWACWFVO3205-11-82 10:37:000.9[facility] GudrykqLOGFQLETMG1589-37-17 10:37:000.3[facility] GmwdldiLHCUJWEMYU1355-22-79 10:37:004.8[facility] BDENYICFNU8502-99-43 10:37:001.3[facility] MnyvszrPAIONGKGVI7355-52-51 10:37:000.6 [facility] TyeynuuMIODNQIXPR1743-81-21 10:37:000.1[facility] HermannHEMATOLOGY 2020-08-29 10:37:001+ *ABN*(08/29/20 5:37 AM)[facility] OyemrdfMOTTAZGXHJ2910-79-76 10:37:00Not Detected (08/29/20 5:37 AM)[facility] HermannBLOOD BANK RESULTS 2020-08-29 10:37:00Negative (08/29/20 5:37 AM)[facility] HermannCHEM DROJI0609-72-48 10:37:26592Mhmmhjox HermannCHEM GHRHZ4151-00-02 10:37:0028[facility] HermannCHEM NIEHL4887-32-54 10:37:001.01[facility] HermannCHEM BFAKC4230-03-83 10:37:83767 [facility]annCHEM BZJEB7157-26-74 10:37:003.8[facility] HermannCHEM PANEL 2020-08-29 10:37:99832Jqhuaiph HermannCHEM YDNDU1298-68-48 10:37:0028[facility] HermannCHEM BBJHV8545-05-79 10:37:009.8[facility] HermannCHEM CKQLV3317-23-97 10:37:0011.8[facility] HermannCHEM GIFGS7260-03-97 10:37:0059[facility] HermannCHEM AFXLE8156-35-01 10:37:002.9[facility] HhppiofZZYQVFWZIN8793-70-95 10:37:006.8 [facility] YrbwpvvHTIXWNIRFY1920-86-26 10:37:004.47[facility] HermannHEMATOLOGY 2020-08-29 10:37:0010.6[facility] BedzikvZWATCPTJVT0537-91-38 10:37:0034.0[facility] LzqvypfWLYYCMYYGU2833-36-86 10:37:0076.1[facility] LpabxoaVNLRFEHVDB3447-89-15 10:37:00 Test Item Value Reference Range Interpretation Comments MCH (test code = MCH) 23.8 pg 27.0-31.0 [facility] DrbsziiRKMPZEOEKJ0435-69-89 10:37:0031.3[facility] HermannHEMATOLOGY 2020-08-29 10:37:0018.2[facility] TclaohvYUIUMITCXY0071-01-89 10:37:33746Mxokxmyd VqjullrCXHVLIYHDV4199-34-53 10:37:007.5[facility] CstsjdfZKARDRJJSZ0149-67-15 10:37:00 Test Item Value Reference Range Interpretation Comments PT (test code = PT) 12.8 s 12.0-14.7 [facility] IwolknjHVPRLMHFDN1110-00-43 10:37:00 Test Item Value Reference Range Interpretation Comments INR (test code = INR) 0.97 1 0.85-1.17 [facility] HvgkswrPXDFDBIZKL2070-86-99 10:37:00 Test Item Value Reference Range Interpretation Comments PTT (test code = PTT) 25.0 s 22.9-35.8 [facility] JlsuervSJBDZIFQNE5961-70-18 10:37:0070.5[facility] HermannHEMATOLOGY 2020-08-29 10:37:0018.8[facility] WupsyetODNQZHALUP0875-65-36 10:37:009.5[facility] RntavrdVYNRDTIKLG0974-80-32 10:37:000.9[facility] QmikibtUCOEBLUVVK5533-54-52 10:37:000.3[facility] GdxuqicEEYQQMGSFK8555-44-95 10:37:004.8[facility] YQQIFNKVPN7084-79-36 10:37:001.3[facility] BfkxubiOQKVFJHUEY3554-25-95 10:37:000.6 [facility] MavjzkjRBBHFYRFST9108-46-24 10:37:000.1[facility] HermannHEMATOLOGY 2020-08-29 10:37:001+ *ABN*(08/29/20 5:37 AM)[facility] ZqxgbfhUYVHNWBJAN2991-99-37 10:37:00Not Detected (08/29/20 5:37 AM)[facility] HermannBLOOD BANK RESULTS 2020-08-29 10:37:00Negative (08/29/20 5:37 AM)[facility] HermannCHEM FRNTI3421-14-89 10:37:31044Fvriided HermannCHEM UOWWS6648-09-90 10:37:0028[facility] HermannCHEM NOZWT0454-84-53 10:37:001.01[facility] HermannCHEM AGACC8973-25-87 10:37:27855 [facility] HermannCHEM DABDA0331-25-43 10:37:003.8[facility] HermannCHEM PANEL 2020-08-29 10:37:58440Weckxijo HermannCHEM FCKKV0866-67-44 10:37:0028[facility] HermannCHEM TDMVS1372-73-28 10:37:009.8[facility] HermannCHEM VTPWF0822-06-48 10:37:0011.8[facility] HermannCHEM BTLLN3880-15-12 10:37:0059[facility] HermannCHEM FZIWT5897-33-49 10:37:002.9[facility] EuemqzwZPOGUOJTIV4477-88-62 10:37:006.8 [facility] JsjjimdXDEUYLWPYU3763-48-98 10:37:004.47[facility] HermannHEMATOLOGY 2020-08-29 10:37:0010.6[facility] WuvnyxnNBBCJQOMXS9999-17-89 10:37:0034.0[facility] MmwptqsLFQYPXLHPW7939-62-49 10:37:0076.1[facility] TgrvuanPMXUUSBNEV8161-36-30 10:37:00 Test Item Value Reference Range Interpretation Comments MCH (test code = MCH) 23.8 pg 27.0-31.0 [facility] TrpzinbCKJXFPVZFE6311-90-62 10:37:0031.3[facility] HermannHEMATOLOGY 2020-08-29 10:37:0018.2[facility] JwvpliwQVNJDBYJIY3271-36-89 10:37:73024Ncrshwci XfuiyqoYDGSSYYLVY3819-62-87 10:37:007.5[facility] PdkwzhiQACVHKPAUN7962-11-19 10:37:00 Test Item Value Reference Range Interpretation Comments PT (test code = PT) 12.8 s 12.0-14.7 [facility] TtdqcdpNUSNSKINZE8912-56-28 10:37:00 Test Item Value Reference Range Interpretation Comments INR (test code = INR) 0.97 1 0.85-1.17 [facility] RdkyxtwSHGBKZANWT1383-00-64 10:37:00 Test Item Value Reference Range Interpretation Comments PTT (test code = PTT) 25.0 s 22.9-35.8 [facility] BxaynbiTWXTUNBWGP0712-73-24 10:37:0070.5[facility] HermannHEMATOLOGY 2020-08-29 10:37:0018.8[facility] ZppeyqnRKRYCPFCCZ4995-97-81 10:37:009.5[facility] QjkbcuiMSRNWJRASH7090-33-26 10:37:000.9[facility] EfolhxjUSUONLIPHB5822-24-60 10:37:000.3[facility] AugpfjjCHKJWRYPDD6277-26-20 10:37:004.8[facility] KQNDQOCGZO9350-89-63 10:37:001.3[facility] WszfwxoYRWZXCSFIF3964-42-48 10:37:000.6 [facility] KjqaycdITZVGDJMQA8380-29-24 10:37:000.1[facility] HermannHEMATOLOGY 2020-08-29 10:37:001+ *ABN*(08/29/20 5:37 AM)[facility] NowdszcHHIMVBRHKX6953-00-26 10:37:00Not Detected (08/29/20 5:37 AM)[facility]annBLOOD BANK RESULTS 2020-08-29 10:37:00Negative (08/29/20 5:37 AM)[facility] HermannCHEM PYNMA7526-78-48 10:37:00749Qhtqdthx HermannCHEM SJUAA5110-48-70 10:37:0028[facility] HermannCHEM OGFFP5003-18-25 10:37:001.01[facility] HermannCHEM FRUWB9009-69-85 10:37:15222 [facility] HermannCHEM UXQVS5250-20-69 10:37:003.8[facility] HermannCHEM PANEL 2020-08-29 10:37:51012Jmxuvtuz HermannCHEM FZJDA6607-55-98 10:37:0028[facility] HermannCHEM TKTOA2398-04-62 10:37:009.8[facility] HermannCHEM ZEIDN2946-24-76 10:37:0011.8[facility] HermannCHEM RXSAH5975-42-08 10:37:0059[facility] HermannCHEM FFGTW9510-25-00 10:37:002.9[facility] EzptskpLUCTTCGSNR0275-43-51 10:37:006.8 [facility] PaayaukLXFWDYQDBV1179-77-01 10:37:004.47[facility] HermannHEMATOLOGY 2020-08-29 10:37:0010.6[facility] RjblnxdUMDDINPLTU0554-36-65 10:37:0034.0[facility] ExlvyjmGXPYDHTZQO1932-63-48 10:37:0076.1[facility] AoogiyiUUPHNMCBYX5520-31-38 10:37:00 Test Item Value Reference Range Interpretation Comments MCH (test code = MCH) 23.8 pg 27.0-31.0 [facility] FqsdbrlQMRTBUHWZC6666-35-98 10:37:0031.3[facility] HermannHEMATOLOGY 2020-08-29 10:37:0018.2[facility] SgpfibvDOXMOWBKGB9313-40-09 10:37:75790Peliobfr HwdjqlnBFUCWCCONL0948-48-45 10:37:007.5[facility] MbusnefVFDUMQPZKQ0042-13-91 10:37:00 Test Item Value Reference Range Interpretation Comments PT (test code = PT) 12.8 s 12.0-14.7 [facility] HlqbjnnPUVVYEUQSS5325-82-64 10:37:00 Test Item Value Reference Range Interpretation Comments INR (test code = INR) 0.97 1 0.85-1.17 [facility] RfwyzatPLTJZKLVZA1196-30-08 10:37:00 Test Item Value Reference Range Interpretation Comments PTT (test code = PTT) 25.0 s 22.9-35.8 [facility] OdhomhmKCIDIEHZID0302-66-40 10:37:0070.5[facility] HermannHEMATOLOGY 2020-08-29 10:37:0018.8[facility] DcuxaeqKZKGAQAHJZ7411-75-40 10:37:009.5[facility] AblbdwqRYMWPDIMAN2573-92-40 10:37:000.9[facility] ClnclkdXLTBQPNJIR4822-97-82 10:37:000.3[facility] TenfygnGNLJUGPWIT0936-50-22 10:37:004.8[facility] XWFADBYZCJ9764-28-36 10:37:001.3[facility] OhxifijVUJXFCRVLT9786-71-08 10:37:000.6 [facility] VkjfmkvJTPKJJOFVY0397-55-28 10:37:000.1[facility] HermannHEMATOLOGY 2020-08-29 10:37:001+ *ABN*(08/29/20 5:37 AM)[facility] LloysitFHTUHDSUDO2685-89-37 10:37:00Not Detected (08/29/20 5:37 AM)[facility], TV,PCR, IN MFNHB3348-52-71 15:38:00 Test Item Value Reference Range Interpretation Comments FT (test code = CHTR) Not detected (qualifier Not Detected N value) FT (test code = Not detected (qualifier Not Detected N NGONO) value) FT (test code = TRVG) Not detected (qualifier Not Detected N value) [facility] XYPZKCROUUB3841-56-81 10:57:00 Test Item Value Reference Range Interpretation Comments Color (test code = UCOLR) Dk. Yellow Clarity (test code = UCLAR) Hazy Glucose (test code = UGLUC) NEGATIVE NEGATIVE N Bilirubin (test code = UBILI) NEGATIVE NEGATIVE N Ketones (test code = UKET) NEGATIVE NEGATIVE N Specific [place] (test code = 1.025 1.005-1.030 A USPGR) [...] N URCRYS) [facility] Notes Date/Time Note Provider Source 2021-08-05 14:08:00-00:00 [id number] [place] [address] PATIENT NAME: MARJAN FLEMING ADMIT DATE: 08/05/21 ACCOUNT NO: [id number] ROOM NO: AGE: 66 REPORT TYPE: eTRANSESOPHAGEAL ECHO REPORT SEX: F ADMITTING PHYSICIAN: ATTENDING PHYSICIAN:Mike Lund MD *[place] [address] Transesophageal Echocardiogram Patient: Marjan Fleming Study Date: 08/05/2021 BP: 158 / 92 Location: [facility] URN: [id number] : 1955 Age: 66 Height: / Gender: F Weight: / BMI/BSA: / *Ordering Physician: * Mike Lund *Interpreting Physician: * Ashely Mckeon MD *Senior Visual Designer: * [place] [employer] Indications: POST WATCHMAN. Study data: Consent: The risks, benefits, and al ternatives to the procedure were explained to the patient and info rmed consent was obtained. Procedure: Initial setup: The patient was brought to the laboratory in the fasting state.Intravenous acce ss was obtained. Surface ECG leads and pulse oximetric signals were monit ored. Sedation. Moderate sedation was administered by cardiology staff. T ransesophageal echocardiography was performed. Topical anesthes ia was obtained using benzocaine spray. A transesophageal probe (SN: [id number]) was inserted by the attending voice studies director without difficulty. L ocation: CV PREP. Patient status: Outpatient. Study completion: patient tolerated the procedure well. There were no complications. Findings Left ventricle: The cavity size is normal. Wall thickness is normal. Systolic function is normal. The estimated eject ion fraction is 60-64%. Wall motion is normal; there are no regional wal l motion abnormalities. PATIENT NAME: MARJAN FLEMING 1 Left atrium: The atrium is normal in size. Post Watchman: There is no evidence of residual flow around the Watchman oc cluder device. Atrial septum: No defect or patent foramen ovale is identified. Aortic valve: The valve is structurally normal. The valve is trileaflet. There is no evidence of stenosis. Mitral valve: The valve is structurally normal. There is mild regurgitation. Tricuspid valve: The valve is structurally robe l. There is trivial regurgitation. Conclusions Summary: 1. Procedure narrative: Initial setup: The patie nt was brought to the laboratory in the fasting state.Intravenous acc ess was obtained. Surface ECG leads and pulse oximetric signals w ere monitored. Sedation. Moderate sedation was administered by cardiology staff. Transesophageal echocardiography was performed. Topical anesthesia was obtained using benzocaine spray. A transeso phageal probe (SN: [id number]) was inserted by the attending cardiolog ist without difficulty. 2. Left ventricle: The cavity size is normal. Wa ll thickness is normal. Systolic function is normal. The estimated ejec tion fraction is 60-64%. Wall motion is normal; there are no reg ional wall motion abnormalities. 3. Left atrium: Post Watchman: There is no evide nce of residual flow around the Watchman occluder device. 4. Atrial septum: No defect or patent foramen ov jonh is identified. 5. Mitral valve: There is mild regurgitation. 6. Tricuspid valve: There is trivial regurgitati on. Prepared and electronically signed by Ashely Mckeon MD 08/05/2021 14:08 Electronically Signed by Mike Lund MD on at 1408 PATIENT NAME: MARJAN FLEMING 32 2021-06-24 11:18:00-00:00 [id number] [place] [address] PATIENT NAME: MARJAN FLEMING ADMIT DATE: 06/17/21 ACCOUNT NO: [id number] ROOM NO: [facility] AGE: 66 REPORT TYPE: eTRANSESOPHAGEAL ECHO REPORT SEX: F ADMITTING PHYSICIAN:Mike Lund MD ATTENDING PHYSICIAN:Mike Lund MD *[place] [address] Transesophageal Echocardiogram for Watchman Patient: Marjan Fleming Study Date: 06/17/2021 BP: Location: [facility] URN: [id number] 2647 : 1955 Age: 66 Height: / Gender: F Weight: / BMI/BSA: / *Ordering Physician: * Mike Lund *Interpreting Physician: * Ashely Mckeon MD Indications: Watchman procedure. Study data: Transesophageal Echocardiogram for Dewey goetz. Consent: The risks, benefits, and alternatives to the procedu re and sedation were explained to the patient and informed consent wa s obtained. Procedure: Initial setup: The patient was [facility] in the fasting state.Intravenous access was obtained. Surface E CG leads, blood pressure measurements, and pulse oximetric signals were m onitored. Sedation. Sedation was administered by anesthesiology samreen rodas. Transesophageal echocardiography was performed. A transesophagea l probe was inserted by the anesthesiologist. Images were obtained using a [place] cardiac ultrasound machine. Location: Catheterization laboratory. Christian woodruff completion: The patient tolerated the procedure well. There were no complications. Findings Conclusions Summary: PATIENT NAME: MARJAN FLEMING 48 1. Study data: Transesophageal Echocardiogram fo r Watchman. 2. Procedure narrative: Transesophageal echocard iography was performed. A transesophageal probe was inserted by the [place] sthesiologist. Images were obtained using a [place] cardiac ultrasound mac dalton. Impressions: Patient with paroxysmal atrial fibr illation, CHADSVASC score of 5, and intolerance to long-term anticoa gulation due to anemia, CVA, and recurrent falls. Patient is s/p successful implantation of a 24mm Watchman device in the left atrial appendage. Patient tolerated the procedure without post-op complications. No thrombus was identified in the pre-/intra-op WESLEY. Postoperatively, chest x-ray is negative for any acute process. Post-op echo did not show a pericardial effusion. Patient ambulated without any difficulty, and he art rate and blood pressure are stable. Right groin suture removed by this COSMETIC DENTIST. No infect ion, bleeding, or hematoma. Dermabond applied and intact. Patient was provided with post-Watchman discharg e instructions. Patient is to follow up with PCP and voice studies director in 1 t o 2 weeks post discharge. Patient is to follow up with voice studies director for th e 45-day WESLEY, and for anticoagulation recommendation. Prepared and electronically signed by Ashely Mckeon MD 06/24/2021 11:18 Electronically Signed by Mike Lund MD on at [id number] PATIENT NAME: MARJAN FLEMING 7 2021-06-17 18:10:00-00:00 [id number] [place] [id number] PATIENT NAME: MARJAN FLEMING ADMIT DATE: 06/17/21 ACCOUNT NO: [id number] ROOM NO: [facility] AGE: 66 REPORT TYPE: eECHOCARDIOGRAM REPORT SEX: F ADMITTING PHYSICIAN:Mike Lund MD ATTENDING PHYSICIAN:Mike Lund MD *[place] [address] Limited Transthoracic Echocardiogram Patient: Marjan Fleming Study Date: 06/17/2021 BP: 117 / 82 Location: [facility] URN: [id number] 2647 : 1955 Age: 66 Height: 64 in / 162.6 cm Gender: F Weight: 210 lb / 95.5 kg BMI/BSA: 36.1 kg/m 2 / 2.12 m 2 *Ordering Physician: * Bahman Choprap *Interpreting Physician: * Kevin Merino MD *Senior Visual Designer: * Tiarra Loja Indications: Post Watchman/Rule out pericardial effusion. Study data: Transthoracic echocardiogram, limite d study. Procedure: Transthoracic echocardiography was performed. Im age quality was adequate. Limited 2D and limited spectral Dopple r. Location: [facility]. Patient status: Outpatient. Study status: Routin e. Rhythm: Sinus Bradycardia. Findings Left ventricle: The cavity size is normal. Wall thickness is normal. Systolic function is normal. The estimated eject ion fraction is 60-64%. Wall motion is normal; there are no regional wal l motion abnormalities. Left ventricular diastolic function parameters a re normal for the patient's age. Left atrium: The atrium is normal in size. PATIENT NAME: MARJAN FLEMING 8 Right atrium: The atrium is dilated. Aorta: Aortic root: The aortic root is normal in size. Aortic valve: The valve is structurally normal. The valve is trileaflet. There is no evidence of stenosis. Th ere is no regurgitation. Mitral valve: The valve is structurally normal. There is no evidence of stenosis. There is trivial regurgita tion. Tricuspid valve: Estimated right ventricle systo lic pressure is 32.30 mmHg. The valve is structurally normal. There is mild regurgitation. Pulmonic valve: The valve is structurally normal . There is mild regurgitation. Pericardium: A small/Trivial pericardial effusio n versus fat pad is identified anterior to the heart. Pulmonary arteries: The main pulmonary artery is normal-sized. Systemic veins: Inferior vena cava: The vessel is normal in size . Measurements Left ventricle Value Ref ANALI, LAX 4.6 cm 3.8 - 5.2 ESD, LAX 3.0 cm 2.2 - 3.5 ESD/bsa, LAX 1.4 cm/m 2 1.3 - 2.1 FS, LAX 34 % 27 - 45 ESD/bsa major ax, A4C 3.1 cm/m 2 --------- ANALI/bsa minor ax, A4C 3.1 cm/m 2 --------- ANALI major ax, A2C 8.2 cm --------- ESD major ax, A2C 7.4 cm --------- ANALI/bsa major ax, A2C 3.9 cm/m 2 --------- ESD/bsa major ax, A2C 3.5 cm/m 2 --------- PW, ED 1.1 cm 0.6 - 0.9 IVS/PW, ED 1.13 --------- EF 64 % 54 - 74 E', lat ariel, TDI 10.6 cm/sec >=10.0 E/e', lat ariel, TDI 9 --------- E', med ariel, TDI 5.2 cm/sec >=7.0 E/e', med ariel, TDI 19 --------- E', avg, TDI 7.9 cm/sec --------- E/e', avg, TDI 12 <=14 LVOT Value Ref Diam, S 2.02 cm --------- Area 3.2 cm 2 --------- Ventricular septum Value Ref IVS, ED 1.2 cm 0.6 - 0.9 Right ventricle Value Ref ANLAI, LAX 3.0 cm --------- RVOT Value Ref Peak v, S 1.04 m/sec --------- PATIENT NAME: MARJAN FLEMING 7 Peak grad, S 4 mm Hg --------- Left atrium Value Ref Vol/bsa, ES, 1-p A4C 30 ml/m 2 11 - 40 Vol, ES, 2-p 62 ml --------- Vol/bsa, ES, 2-p 29 ml/m 2 16 - 34 Vol/bsa, ES, A/L 31 ml/m 2 16 - 34 Right atrium Value Ref Area, ES 19 cm 2 10 - 18 Mitral valve Value Ref Peak E 0.08 m/sec --------- Peak A 0.61 m/sec --------- Mean v, D 0.47 m/sec --------- VTI leaflet coapt 28.6 cm --------- Decel time 202 ms --------- PHT 56 ms --------- Mean grad, D 1.0 mm Hg --------- Peak grad, D 2.6 mm Hg --------- Peak E/A ratio 1.6 --------- MVA, PHT 3.9 cm 2 --------- Tricuspid valve Value Ref TR peak v 2.36 m/sec <=2.8 Peak RV-RA grad, S 22 mm Hg --------- Conclusions Summary: 1. Left ventricle: The cavity size is normal. Wa ll thickness is normal. Systolic function is normal. The estimated ejec tion fraction is 60-64%. Wall motion is normal; there are no reg ional wall motion abnormalities. Left ventricular diastolic funct ion parameters are normal for the patient's age. 2. Right atrium: The atrium is dilated. 3. Tricuspid valve: Estimated right ventricle sy stolic pressure is 32.30 mmHg. There is mild regurgitation. 4. Pulmonic valve: There is mild regurgitation. 5. Pericardium, extracardiac: A small/Trivial pe ricardial effusion versus fat pad is identified anterior to the he art. Prepared and electronically signed by Kevin Merino MD 06/17/2021 18:10 Electronically Signed by Kevin Merino MD on 0 06/17/21 at 1810 PATIENT NAME: MARJAN FLEMING 7 2021-06-17 11:12:00-00:00 [facility] Discharge Summary REPORT#:[id number] REPORT STATUS: Signed DATE:06/17/21 TIME: 1112 PATIENT: MARJAN FLEMING UNIT #: [id number] ROOM/BED: [place] [id number] : 56 AGE: 67 SEX: F ATTEND: René Lund MD ADM AUTHOR: Bahman Chopra * ALL edits or amendments must be made on the el [employer]/computer document * PCP PCP Discharge to: home General Information Discharge date: 06/17/21 Hospital course: Patient with paroxysmal atrial fibrillation, JAMIE DSVASC score of 5, and intolerance to long-term anticoagulation due to anemia, CVA, and recurrent falls. Patient is s/p successful implantation of a 24mm Watchman device in the left atrial appendage. Patient tolerated the procedure without post-op complications. No thrombus was identified in the pre-/intra-op WESLEY. Postoperatively, chest x-ray is negative for any acute process. Post-op echo did not show a pericardial effusion. Patient ambulated without an y difficulty, and heart rate and blood pressure are stable. Right groin suture removed by this COSMETIC DENTIST. No infect ion, bleeding, or hematoma. Dermabond applied and intact. [facility]. Patient is to follow up with PCP and voice studies director in 1 to 2 we eks post discharge. Patient is to follow up with voice studies director for th e 45-day WESLEY, and for anticoagulation recommendation. Patient is to continue Eliquis until the 45-day WESLEY. If the 45-day WESLEY shows a we ll-seated watchman device with no leaks or thrombus, then Eliquis will be discontinued and th e patient will be initiated on aspirin and Plavix. Duration of aspirin is lifelong. Duration of Plavix is 6 months post 45-day WESLEY. Post-Watchman discharge instructions given to th e patient who verbalized understanding, and patient w as instructed to report any complaints of chest pain , shortness of breath, lightheadedness, or dizzi ness to the voice studies director. Dispo: It is medically necessary that patients u ndergoing percutaneous left atrial appendage occlusion are admitted as an in patient. This patient had a recovery that was earlier than expected and can be discharged today. Med Rec PCP PCP: PCP: Lele Rahman DO Med Rec Discharge meds: Continue taking these medications: METOPROLOL TARTRATE (LOPRESSOR) 100 MG TAB 100 MILLIGRAM ORAL TWICE DAILY. LISINOPRIL (ZESTRIL) 40 MG TAB 40 MILLIGRAM ORAL TWICE DAILY. hydrALAZINE (APRESOLINE) 25 MG TAB 25 MILLIGRAM ORAL THREE TIMES A DAY. Emtricitabine/Tenofov Alafenam (DESCOVY 200-25 M G Tablet) 200 MG-25 MG TAB 1 TABLET ORAL DAILY. RALTEGRAVIR (ISENTRESS) 400 MG TAB 400 MILLIGRAM ORAL TWICE DAILY. LORazepam (ATIVAN) 2 MG TAB 2 MILLIGRAM ORAL TWICE DAILY NEEDED. as need ed for ANXIETY buPROPion HCL SR (WELLBUTRIN SR) 150 MG TAB.SA 150 MILLIGRAM ORAL DAILY. busPIRone (BUSPAR) 30 MG TAB 30 MILLIGRAM ORAL TWICE DAILY. ESOMEPRAZOLE MAG DR (NexIUM) 40 MG CAP.DR 40 MILLIGRAM ORAL TWICE DAILY. SERTRALINE (ZOLOFT) 100 MG TAB 200 MILLIGRAM ORAL DAILY. APIXABAN (ELIQUIS) 5 MG TAB 5 MILLIGRAM ORAL TWICE DAILY. amLODIPine (NORVASC) 10 MG TAB 10 MILLIGRAM ORAL DAILY. AMIODARONE (CORDARONE) 100 MG TAB 100 MILLIGRAM ORAL TWICE DAILY. Objective VS/I O Last Documented: Result Date Time O2 Delivery Nasal cannula 06/17 1022 O2 Flow Rate 3.5 06/17 1022 Pulse Ox 96 06/17 628 B/P 228/108 06/17 628 Temp 36.0 06/17 628 Pulse 62 06/17 06 Resp 18 06/17 628 24 hour I O ending at 0700: 06/17 0700 06/16 1900 Intake Total Output Total Balance Patient 95.7 kg 97.2 kg Weight Weight Stated/Reported Standing scale Measurement Method PATIENT WEIGHT: Weight (lb): 210 Weight (oz): 15.72 Weight (kg): 95.700 General appearance: alert, awake, oriented Cardiovascular: regular rate rhythm Respiratory: clear to auscultation, no distress GI: soft, non-tender Extremities: moves all Neuro/MRI TECHNICIAN: alert, oriented X 3 Skin: dry Wound/incision: Location: Right groin suture removed by this COSMETIC DENTIST. No infect ion, bleeding, or hematoma. Dermabond applied and intact. Results Findings/Data: Laboratory Tests: 06/17 06/16 0834 1200 Coagulation Activated Coag Time (74 - 137 SEC) 249 H Serology SARS-CoV-2 Ag (Rapid) (Negative) Negative Treatments Procedures Imaging: Recent Impressions: RADIOLOGY - XR CHEST 2 V 06/16 1120 Report Impression - Status: SIGNED Entered: 06/16/2021 1135 IMPRESSION: No acute cardiopulmonary findings Impression By: [email or web address] Bibiana Collins D.O. Discharge Instructions PCP PCP: PCP: Lele Rahman DO )( Discharge to: Home/Self Care Discharge Instructions Additional Discharge Routines: Attending Follow- Up )( Diet: Cardiac )( Activity: As Tolerated Follow-up Appointments Attending Physician: Attending Physician: Mike Lund MD Attending physician follow up timeframe: In 1-2 weeks Electronically Signed by Bahman Chopra o rodger 06/17/21 at 1613 Electronically Signed by Mike Lund MD on 07/14 at 0946 RPT #:[id number] END OF REPORT 2021-06-17 09:43:00-00:00 [id number] [place] [address] PATIENT NAME: MARJAN FLEMING ADMIT DATE: 06/17/21 ACCOUNT NO: [id number] ROOM NO: ADDIS AGE: 66 REPORT TYPE: eELECTROCARDIOGRAM REPORT SEX: F ADMITTING PHYSICIAN:Mike Lund MD ATTENDING PHYSICIAN:Mike Lund MD Order: [id number] Test Reason : S/P WATCHMAN Test Date/Time Stamp: TueJun 17 2021 09:43:45 Blood Pressure : / mmHG Vent. Rate : 062 BPM Atrial Rate : 062 BPM P-R Int : 176 ms QRS Dur : 086 ms QT Int : 500 ms P-R-T Axes : 071 013 -04 degree s QTc Int : 507 ms Sinus rhythm with premature atrial complexes Minimal voltage criteria for LVH, may be normal variant Nonspecific ST and T wave abnormality Prolonged QT Abnormal ECG Confirmed by ARMANDO FISHER MD ([id number]) on 06/17/19 6:07:19 PM Referred By: Mike Lund Confirmed by:ARMANDO RICHARDS MD at 1807 PATIENT NAME: MARJAN FLEMING 7 2021-06-17 08:54:00-00:00 [id number] [place] [id number] PATIENT NAME: MARJAN FLEMING ADMIT DATE: 06/17/21 ACCOUNT NO: [id number] ROOM NO: ADDIS AGE: 66 REPORT TYPE: CARDIAC CATHETERIZATION REPORT SEX: F ADMITTING PHYSICIAN:Mike Lund MD ATTENDING PHYSICIAN:Mike Lund MD PROCEDURE DATE: 06/17/2021 PROCEDURE PERFORMED: Left atrial appendage closu re using a 24 mm Watchman FLX closure device. ACCESS: Right femoral vein, 16-Peruvian closed wit h [id number]-[id number]-srhgu suture. PROFESSOR/NURSE ANESTHETIST: Mike Lund MD. SECONDARY VISITOR SERVICES SPECIALIST: Kevin Merino MD. COMPLICATIONS: None. BLEEDING: Less than 20 mL. INDICATIONS: Atrial fibrillation with hi gh risk for stroke and multiple falls. DESCRIPTION OF PROCEDURE: After risks, benefits, and alternatives were explained, the patient agreed to proceed and sig vida informed consent. The patient was brought into the cardiac catheteriza tion laboratory, prepped and draped in usual sterile fashion. After general a nesthesia was applied and WESLEY probe was inserted by anesthesia, a preprocedure WESLEY was reviewed and no thrombus was found in the appendage and then I t ook a micropuncture kit and under ultrasound guidance, I accessed right femo ral vein, placed 8-Peruvian Stevenson sheath. Subsequently, upgraded to 16-Peruvian sheath and gave a partial dose of heparin, then took the SL1 sheat h into the SVC over a wire with Kinston needle inside, descended under the fluor oscopy and WESLEY guidance in the low mid position. Transseptal puncture was performed. LA pressure was recorded at 21 mmHg. I took ProTrack wire into the left atrium, exchanged for a Watchman double curve sheath and then took a pigtail through the Watchman sheath into the left atrium and navigated that into the appendag e and telescoped the Watchman sheath over to the appendage and appenda ge angiogram was performed, determined the 24-mm device will be suitable for closure. T he device was prepped and de-aired in usual sterile fashion. Then, pigtail was removed and after good bleed back from the sheath and with the positive flush through the delivery system, delivery system was advanced through the Watchman sheath into the appendage and then device was deployed under flu oroscopy and WESLEY guidance and PASS criteria were all evaluated and met. Device was stable, such it was released in position and the patient tolerated t he procedure very well. I removed the Watchman sheath and the 16-Peruvian sheath and placed dpaeac-[id number]-imptd suture for hemostasis, then achieved a good hemo stasis. CONCLUSION: Left atrial appendage closure using a 24 mm Watchman FLX closure PATIENT NAME: MARJAN FLEMING 47 device. Dictated By: Mike Lund MD WT: CATH:GAYLE/RIKY/ALLA Conf#: [id number]/DID#: [id number] Authenticated by Miek Lund MD On 07/01/2021 12:30:01 PM Electronically Signed by Mike Lund MD on at 1230 PATIENT NAME: MARJAN FLEMING 7 2021-06-16 10:36:00-00:00 [id number] [place] [address] PATIENT NAME: MARJAN FLEMING ADMIT DATE: ACCOUNT NO: [id number] ROOM NO: AGE: 66 REPORT TYPE: eELECTROCARDIOGRAM REPORT SEX: F ADMITTING PHYSICIAN: ATTENDING PHYSICIAN:Mike Lund MD Order: [id number] Test Reason : PREOP Test Date/Time Stamp: TueJun 16 2021 10:36:24 Blood Pressure : / mmHG Vent. Rate : 062 BPM Atrial Rate : 062 BPM P-R Int : 148 ms QRS Dur : 078 ms QT Int : 464 ms P-R-T Axes : 008 022 033 degree s QTc Int : 470 ms Normal sinus rhythm Nonspecific ST and T wave abnormality Prolonged QT Abnormal ECG PRE_OP Confirmed by ARMANDO FISHER MD ([id number]) on 06/16/19 11:29:35 AM Referred By: Mike Lund Confirmed by:ARMANDO RICHARDS MD at 1129 PATIENT NAME: MARJAN FLEMING 7"
[2022-10-05] MEDS ORDERED: HYDROCODONE/APAP 7.5/325 MG TAB ONE (20:07)
--- NOTE | 2022-10-05 20:28 | RAD REPORT ---
EXAM DESCRIPTION: RAD - Knee Left 3 View - 10/05/2022 8:19 pm CLINICAL HISTORY: PAIN COMPARISON: Knee Left 3 View dated 04/03/2021; Knee Left 3 View dated 03/31/2021 FINDINGS: No fracture or dislocation seen. No joint effusion.
--- NOTE | 2022-10-05 20:29 | RAD REPORT ---
EXAM DESCRIPTION: RAD - Knee Right 3 View - 10/05/2022 8:19 pm CLINICAL HISTORY: fall;Pain COMPARISON: Knee Right 3 View dated 01/09/2022; Knee Right 3 View dated 01/02/2018 FINDINGS: No bone or joint abnormality is detected.
--- NOTE | 2022-10-05 20:38 | RAD REPORT ---
EXAM DESCRIPTION: CT - Abdomen Pelvis Wo Contrast - 10/05/2022 8:26 pm CLINICAL HISTORY: Abdominal pain. fall COMPARISON: Abdomen Pelvis Wo Contrast dated 07/04/2022 TECHNIQUE: CT imaging of the abdomen and pelvis was performed without contrast. Solid organ, bowel a nd vascular assessment is limited due to lack of IV and oral contrast. All CT scans are performed using dose optimization technique as appropriate and may include automated exposure control or mA/KV adjustment according to patient size. FINDINGS: The lower lung patel are clear.Cholecystectomy clips. The liver, spleen, pancreas, adrenal glands and kidneys are within normal limits for a limited non-co ntrast examination.Bilateral renal cysts are present. No bowel obstruction, free air, free fluid or abscess. Moderate stool is retained throughout the colo n. Nonvisualized appendix. The osseous structures are within normal limits.No fracture is visualized. IMPRESSION: No acute intra-abdominal or pelvic findings. A limited non-contrast examination was performed as detailed.
[2022-10-05] MEDS ORDERED: KETOROLAC 30 MG/ML INJ ONE (21:13)
[2022-10-05] MEDS ORDERED: cloNIDine HCL 0.1 MG TAB ONE (22:21)
--- NOTE | 2022-10-05 23:21 | EDPHYS ---
Physician Documentation [facility] Name: Marjan Kolb Age: 67 yrs Sex: Female : 1955 Arrival Date: 10/05/2022 Time: 19:39 Bed 20 Private MD: ED Physician Jose Shah HPI: 10/05 20:00 This 67 yrs old Female presents to ER via EMS with complaints of Fall. cp 20:00 Patient is a 67-year-old female brought to the emergency department by EMS. Patient cp reports a slip and fall in her kitchen this evening in which she fell forward landing on both knees. Patient denies loss of consciousness, syncope and denies hitting her head but complains of continued headache since previous visit. Patient is well-known to this emergency department. Patient also complains of low back pain. Historical: - Allergies: 19:51 Bactrim; pf1 19:51 Azithromycin; pf1 19:51 butorphanol; pf1 19:51 Fentanyl; pf1 19:51 Reglan; pf1 19:51 Sulfa (Sulfonamide Antibiotics); pf1 19:51 TRIMETHOPRIM; pf1 - Immunization history:: Adult Immunizations unknown. - Social history:: Smoking status: unknown. ROS: 20:05 Constitutional: Negative for body aches, chills, fever, poor PO intake. cp 20:05 Eyes: Negative for injury, pain, redness, and discharge. cp 20:05 Neck: Negative for pain with movement, pain at rest, stiffness. 20:05 Cardiovascular: Negative for chest pain, edema, palpitations. 20:05 Respiratory: Negative for cough, shortness of breath, wheezing. 20:05 Abdomen/GI: Negative for abdominal pain, nausea, vomiting, and diarrhea. 20:05 Back: Positive for pain at rest, pain with movement, of the low back. 20:05 MS/extremity: Positive for pain, of the right knee and left knee, Negative for decreased range of motion, deformity, paresthesias. 20:05 Neuro: Negative for altered mental status, dizziness, headache, numbness, syncope, weakness. 20:05 All other systems are negative. Exam: 20:10 Constitutional: The patient appears in no acute distress, alert, awake, cp non-diaphoretic, non-toxic, well developed, well nourished, overweight 20:10 Head/Face: Normocephalic, atraumatic. cp 20:10 Eyes: Pupils: equal, round, and reactive to light and accomodation, Conjunctiva: normal, no exudate, no injection, Sclera: no appreciated abnormality, Lids and lashes: appear normal, bilaterally. 20:10 ENT: External ear(s): are unremarkable, Nose: is normal, Mouth: Lips: moist, Oral mucosa: moist, Posterior pharynx: is normal, airway is patent, no erythema, no exudate. 20:10 Neck: C-spine: vertebral tenderness, is not appreciated, crepitus, is not appreciated, ROM/movement: is normal, is supple, without pain, no range of motions limitations. 20:10 Chest/axilla: Inspection: normal, Palpation: is normal, no crepitus, no tenderness. 20:10 Cardiovascular: Rate: bradycardic, Rhythm: regular, Edema: is not appreciated, JVD: is not appreciated. 20:10 Respiratory: the patient does not display signs of respiratory distress, Respirations: normal, no use of accessory muscles, no retractions, labored breathing, is not present, Breath sounds: are clear throughout, no decreased breath sounds, no stridor, no wheezing. 20:10 Abdomen/GI: Inspection: abdomen appears normal, Bowel sounds: active, all quadrants, Palpation: soft, in all quadrants, mild abdominal tenderness, in the right lower quadrant and left lower quadrant. 20:10 Back: pain, that is moderate, of the low back area, ROM is painful, with all movement. 20:10 Musculoskeletal/extremity: Extremities: grossly normal except: noted in the right knee and left knee: pain, tenderness, There is no evidence of decreased ROM, deformity, ROM: limited passive range of motion due to pain, in the right knee and left knee. 20:10 Neuro: Orientation: to person, place \T\ time. Mentation: is normal, Motor: moves all fours, strength is normal. Vital Signs: 19:47 BP 169 / 93; Pulse 56; Resp 18; Temp 98.3; Pulse Ox 97% on R/A; Weight 80.74 kg; Height pf1 5 ft. 4 in. ; Pain 10/10; 21:12 BP 189 / 96; Pulse 52; Resp 18 S; Pulse Ox 96% on R/A; aa9 22:06 BP 206 / 104; Pulse 51; Pulse Ox 99% on 2 lpm NC; aa9 22:38 BP 193 / 106; Pulse 51; Resp 18 S; Pulse Ox 99% on R/A; aa9 23:21 BP 188 / 93; Pulse 52; Resp 17; Temp 98.6(O); Pulse Ox 99% on 2 lpm NC; aa9 23:34 BP 182 / 90; Pulse 57; Resp 18; Temp 98.4; Pulse Ox 99% on 2 lpm NC; aa9 19:47 Body Mass Index 30.55 (80.74 kg, 162.56 cm) pf1 19:47 Pain Scale: Adult pf1 22:06 notified provider aa9 MDM: 19:49 Patient medically screened. cp 23:20 Data reviewed: vital signs, nurses notes, radiologic studies, CT scan, plain films. cp 23:20 Differential diagnosis: closed head injury, contusion, fracture, multiple trauma. I cp considered the following discharge prescriptions or medication management in the emergency department Medications were administered in the Emergency Department. See MAR. Counseling: I had a detailed discussion with the patient and/or guardian regarding: the historical points, exam findings, and any diagnostic results supporting the discharge/admit diagnosis, radiology results, to return to the emergency department if symptoms worsen or persist or if there are any questions or concerns that arise at home. Response to treatment: the patient's symptoms have markedly improved after treatment, and as a result, I will discharge patient. Special discussion: I discussed with the patient their frequent requests for pain medications. Instructions have been given, that in the best interests of the patient, further pain Rx's must come from the patient's PCP or a custom motorcycle painter. 10/05 19:44 Order name: XRAY Knee RIGHT 3 view; Complete Time: 20:58 cp 10/05 20:58 Interpretation: Report reviewed. cp 10/05 19:44 Order name: XRAY Knee LEFT 3 view; Complete Time: 20:58 cp 10/05 20:59 Interpretation: Report reviewed. cp 10/05 19:44 Order name: CT Abd/Pelvis - Without Contrast; Complete Time: 20:58 cp 10/05 20:59 Interpretation: Report reviewed. cp Administered Medications: 20:03 Drug: Hydrocodone-Acetaminophen PO (7.5 mg-325 mg) 1 tabs Route: PO; aa9 21:11 Follow up: Response: No adverse reaction aa9 21:11 Drug: Ketorolac IM 30 mg Route: IM; Site: right deltoid; aa9 23:21 Follow up: Response: No adverse reaction; Pain is decreased aa9 22:16 Drug: cloNIDine PO 0.2 mg Route: PO; aa9 23:21 Follow up: Response: No adverse reaction; Blood sugar is lowered aa9 Disposition Summary: 10/05/22 23:20 Discharge Ordered Location: Home cp Problem: new cp Symptoms: have improved cp Condition: Stable cp Diagnosis - Fall on same level, unspecified cp - Pain in knee - bilateral cp - Low back pain cp Followup: cp - With: Private Physician - When: 2 - 3 days - Reason: Recheck today's complaints Discharge Instructions: - Discharge Summary Sheet cp - Acute Back Pain, Adult cp - Acute Knee Pain, Adult cp - Back Exercises cp Forms: - Medication Reconciliation Form cp - Thank You Letter cp - Antibiotic Education cp - Prescription Opioid Use cp Prescriptions: - Mobic 7.5 mg Oral Tablet - take 1 tablet by ORAL route once daily take with food; 20 tablet; Refills: 0, cp Product Selection Permitted Signatures: Dispatcher [employer] EDMS Justus Neil PA PA cp Angelica Carlson RN RN aa9 Kay Castrejon RN RN pf1 Corrections: (The following items were deleted from the chart) 10/06 23:17 23:15 This 67 yrs old Female presents to ER via EMS with complaints of Fall. cp cp
--- NOTE | 2022-10-05 23:21 | ER ---
Nurse's Notes [facility] Name: Marjan Kolb Age: 67 yrs Sex: Female : 1955 Arrival Date: 10/05/2022 Time: 19:39 Bed 20 Private MD: Diagnosis: Fall on same level, unspecified;Pain in knee-bilateral;Low back pain Presentation: 10/05 19:47 Chief complaint: Patient states: lower back pain of 10, S/P fall [employer]. Patient stated pf1 was mopping her floor, fell forward, landed onto abdomen, denies any head injury. Coronavirus screen: Vaccine status: Patient reports receiving the 2nd dose of the covid vaccine. 3 doses of pfizer Client denies travel out of the [place] in the last 14 days. At this time, the client does not indicate any symptoms associated with coronavirus-19. Ebola Screen: Patient negative for fever greater than or equal to 101.5 degrees Fahrenheit, and additional compatible Ebola Virus Disease symptoms. Initial Sepsis Screen: Does the patient meet any 2 criteria? No. Patient's initial sepsis screen is negative. Does the patient have a suspected source of infection? No. Patient's initial sepsis screen is negative. Risk Assessment: Do you want to hurt yourself or someone else? Patient reports no desire to harm self or others. 19:47 Method Of Arrival: EMS: [facility] pf1 19:47 Acuity: BLAYNE 3 pf1 23:35 Onset of symptoms was October 05, 2022. aa9 Historical: - Allergies: 19:51 Bactrim; pf1 19:51 Azithromycin; pf1 19:51 butorphanol; pf1 19:51 Fentanyl; pf1 19:51 Reglan; pf1 19:51 Sulfa (Sulfonamide Antibiotics); pf1 19:51 TRIMETHOPRIM; pf1 - Immunization history:: Adult Immunizations unknown. - Social history:: Smoking status: unknown. Screenin:52 [facility] ED Fall Risk Assessment (Adult) History of falling in the last 3 months, aa9 including since admission Yes- single mechanical fall (1 pt) Confusion or Disorientation No (0 pts) Intoxicated or Sedated No (0 pts) Impaired Gait Yes (1 pt) Mobility Assist Device Used Yes (1 pt) Altered Elimination No (0 pt) Score/Fall Risk Level 3 or more points = High Risk Oriented to surroundings, Maintained a safe environment, Educated pt \T\ family on fall prevention, incl call for assistance when getting out of bed. Abuse screen: Denies threats or abuse. Denies injuries from another. Nutritional screening: No deficits noted. Tuberculosis screening: No symptoms or risk factors identified. Assessment: 20:03 General: Appears uncomfortable, obese, unkempt, Behavior is calm, cooperative. aa9 Cardiovascular: Patient's skin is warm and dry. Respiratory: Airway is patent Respiratory effort is even, unlabored. GI: Patient currently denies diarrhea, nausea, vomiting. Derm: Skin is intact, is fragile, is thin. 21:12 Reassessment: Patient appears in no apparent distress at this time. Patient and/or aa9 family updated on plan of care and expected duration. Pain level reassessed. Patient is alert, oriented x 3, equal unlabored respirations, skin warm/dry/pink. 22:23 Reassessment: Patient appears in no apparent distress at this time. Patient and/or aa9 family updated on plan of care and expected duration. Pain level reassessed. Patient is alert, oriented x 3, equal unlabored respirations, skin warm/dry/pink. Patient states symptoms have improved. 23:34 Reassessment: Patient appears in no apparent distress at this time. Patient and/or aa9 family updated on plan of care and expected duration. Pain level reassessed. Patient is alert, oriented x 3, equal unlabored respirations, skin warm/dry/pink. Patient states feeling better. Vital Signs: 19:47 BP 169 / 93; Pulse 56; Resp 18; Temp 98.3; Pulse Ox 97% on R/A; Weight 80.74 kg; Height pf1 5 ft. 4 in. ; Pain 10/10; 21:12 BP 189 / 96; Pulse 52; Resp 18 S; Pulse Ox 96% on R/A; aa9 22:06 BP 206 / 104; Pulse 51; Pulse Ox 99% on 2 lpm NC; aa9 22:38 BP 193 / 106; Pulse 51; Resp 18 S; Pulse Ox 99% on R/A; aa9 23:21 BP 188 / 93; Pulse 52; Resp 17; Temp 98.6(O); Pulse Ox 99% on 2 lpm NC; aa9 23:34 BP 182 / 90; Pulse 57; Resp 18; Temp 98.4; Pulse Ox 99% on 2 lpm NC; aa9 19:47 Body Mass Index 30.55 (80.74 kg, 162.56 cm) pf1 19:47 Pain Scale: Adult pf1 22:06 notified provider aa9 ED Course: 19:43 Patient arrived in ED. aa9 19:43 Justus Neil PA is PHCP. cp 19:43 Jose Shah DO is Attending Physician. cp 19:44 Angelica Carlson, ASHLYE is Primary Nurse. aa9 19:51 Triage completed. pf1 20:00 Patient placed in an exam room. aa9 20:03 Diet: Patient given ice chips. Patient given water. Tolerated well. aa9 20:20 XRAY Knee RIGHT 3 view In Process Unspecified. EDMS 20:20 XRAY Knee LEFT 3 view In Process Unspecified. EDMS 20:28 CT Abd/Pelvis - Without Contrast In Process Unspecified. EDMS 20:52 Patient has correct armband on for positive identification. Bed in low position. Call aa9 light in reach. Side rails up X 1. Pulse ox on. NIBP on. 21:15 Door closed. Lights dimmed. aa9 23:34 No provider procedures requiring assistance completed. Patient did not have IV access aa9 during this emergency room visit. Administered Medications: 20:03 Drug: Hydrocodone-Acetaminophen PO (7.5 mg-325 mg) 1 tabs Route: PO; aa9 21:11 Follow up: Response: No adverse reaction aa9 21:11 Drug: Ketorolac IM 30 mg Route: IM; Site: right deltoid; aa9 23:21 Follow up: Response: No adverse reaction; Pain is decreased aa9 22:16 Drug: cloNIDine PO 0.2 mg Route: PO; aa9 23:21 Follow up: Response: No adverse reaction; Blood sugar is lowered aa9 Medication: 20:53 VIS not applicable for this client. aa9 Outcome: 23:20 Discharge ordered by . cp 23:35 Discharged to home via wheelchair. aa9 23:35 Condition: stable 23:35 Discharge instructions given to patient, Instructed on discharge instructions, follow up and referral plans. medication usage, Demonstrated understanding of instructions, follow-up care, medications, Prescriptions given X 1. 23:35 Patient left the ED. aa9 Signatures: Dispatcher [employer] SHEELAMS Justus Neil PA PA cp Avalos, Aylin, RN RN aa9 Kay Castrejon RN RN pf1
[2022-10-06 00:31] VITALS: O2SAT 99
[2022-10-06 00:35] VITALS: BP 182/90; TEMP 98.4
== END 2022-10-05 23:35 | disposition home or self-care (01) ==
LOC: ER 19:39
DX: M25.562 Pain in left knee (principal); M25.561 Pain in right knee; M54.50 Low back pain, unspecified; W18.30XA Fall on same level, unspecified, initial encounter; Z88.1 Allergy status to other antibiotic agents; Z88.2 Allergy status to sulfonamides; Z88.3 Allergy status to other anti-infective agents; Z88.5 Allergy status to narcotic agent; Z88.8 Allergy status to other drugs, medicaments and biological substances
CPT/HCPCS: 74176

== ENCOUNTER 2022-10-08 05:45 | Emergency (ER) | payer OTHER ==
--- NOTE | 2022-10-08 05:56 | EDPHYS ---
Physician Documentation [facility] Name: Marjan Kolb Age: 67 yrs Sex: Female : 1955 Arrival Date: 10/08/2022 Time: 05:45 Bed 18 Private MD: ED Physician Heladio Collins HPI: 10/08 05:50 This 67 yrs old Female presents to ER via Unassigned with complaints of Abdominal pain. sp3 05:50 67-year-old female with extensive medical records here and chronic abdominal pain sp3 presents again via EMS for diffuse abdominal pain since 2 AM. Patient denies vomiting, diarrhea, fever, back pain, chest pain, shortness of breath, headache, travel history, bad food, or any other signs or symptoms at this time. Patient is asking for pain medication immediately upon arrival. . Historical: - Allergies: 05:54 Azithromycin; lg3 05:54 Bactrim; lg3 05:54 butorphanol; lg3 05:54 Fentanyl; lg3 05:54 Reglan; lg3 05:54 Sulfa (Sulfonamide Antibiotics); lg3 05:54 TRIMETHOPRIM; lg3 - Home Meds: 05:54 lisinopril Oral [Active]; Metoprolol Tartrate Oral [Active]; lg3 - PMHx: 05:54 angina pectoris; Anxiety; Atrial fibrillation; Bipolar disorder; esophageal varicies; lg3 Hepatitis; HIV positive; Hypertensive disorder; Migraine; panic attack; Angina pectoris; - Immunization history:: Adult Immunizations up to date. - Social history:: Smoking status: Patient denies any tobacco usage or history of. Patient/guardian denies using alcohol, street drugs. ROS: 05:52 Constitutional: Negative for fever, chills, and weight loss, Eyes: Negative for injury, sp3 pain, redness, and discharge, ENT: Negative for injury, pain, and discharge, Neck: Negative for injury, pain, and swelling, Cardiovascular: Negative for chest pain, palpitations, and edema, Respiratory: Negative for shortness of breath, cough, wheezing, and pleuritic chest pain, Back: Negative for injury and pain, MS/Extremity: Negative for injury and deformity, Skin: Negative for injury, rash, and discoloration, Neuro: Negative for headache, weakness, numbness, tingling, and seizure. 05:52 All other systems are negative. Exam: 05:53 Constitutional: This is a well developed, well nourished patient who is awake, alert, sp3 and in no acute distress. Head/Face: Normocephalic, atraumatic. Eyes: Pupils equal round and reactive to light, extra-ocular motions intact. Lids and lashes normal. Conjunctiva and sclera are non-icteric and not injected. Cornea within normal limits. Periorbital areas with no swelling, redness, or edema. Neck: Trachea midline, no thyromegaly or masses palpated, and no cervical lymphadenopathy. Supple, full range of motion without nuchal rigidity, or vertebral point tenderness. No Meningismus. Chest/axilla: Normal chest wall appearance and motion. Nontender with no deformity. No lesions are appreciated. Cardiovascular: Regular rate and rhythm with a normal S1 and S2. No gallops, murmurs, or rubs. Normal PMI, no JVD. No pulse deficits. Respiratory: Lungs have equal breath sounds bilaterally, clear to auscultation and percussion. No rales, rhonchi or wheezes noted. No increased work of breathing, no retractions or nasal flaring. Abdomen/GI: Soft, non-tender, with normal bowel sounds. No distension or tympany. No guarding or rebound. No evidence of tenderness throughout. Skin: Warm, dry with normal turgor. Normal color with no rashes, no lesions, and no evidence of cellulitis. MS/ Extremity: Pulses equal, no cyanosis. Neurovascular intact. Full, normal range of motion. Neuro: Awake and alert, GCS 15, oriented to person, place, time, and situation. Cranial nerves II-XII grossly intact. Motor strength 5/5 in all extremities. Sensory grossly intact. Cerebellar exam normal. Normal gait. 05:53 Abdomen/GI: Abdomen is soft without peritoneal signs, rebound or guarding. Patient sp3 states that it hurts diffusely in the time her abdomen is depressed.. Vital Signs: 05:49 BP 174 / 85; Pulse 59; Resp 16 S; Temp 98.6(O); Pulse Ox 98% on R/A; Weight 80.74 kg lg3 (R); Height 5 ft. 4 in. (R); 05:49 Body Mass Index 30.55 (80.74 kg, 162.56 cm) lg3 MDM: 05:50 Patient medically screened. sp3 05:53 Data reviewed: vital signs, nurses notes, EMS record. sp3 05:54 ED course: Patient is here for her chronic pain. I do not believe patient has any sp3 surgical abdomen or emergency of any kind. She has not in sepsis, shock have any vascular abnormalities, ACS, PE, or any other critical findings at this time. She is repeatedly asking for Dr. Kolb and demanding pain medications. She is being extremely rude and unprofessional to the staff. I believe she is exhibiting drug-seeking behavior and I referred her to chronic pain follow-up for her symptoms. She will be discharged from the emergency department at this time. All vital signs are normal.. Administered Medications: No medications were administered Disposition Summary: 10/08/22 05:55 Discharge Ordered Location: Home sp3 Condition: Stable sp3 Diagnosis - Abdominal pain, Generalized sp3 Followup: sp3 - With: Private Physician - When: Upon discharge from the Emergency Department - Reason: Continuance of care Discharge Instructions: - Discharge Summary Sheet sp3 - Chronic Pain, Adult sp3 Forms: - Medication Reconciliation Form sp3 - Thank You Letter sp3 - Antibiotic Education sp3 - Prescription Opioid Use sp3 Signatures: Christine Perdomo RN RN lg3 Heladio Collins MD MD sp3
--- NOTE | 2022-10-08 05:56 | ER ---
Nurse's Notes [facility] Name: Marjan Kolb Age: 67 yrs Sex: Female : 1955 Arrival Date: 10/08/2022 Time: 05:45 Bed 18 Private MD: Diagnosis: Abdominal pain, Generalized Presentation: 10/08 05:49 Chief complaint: Patient states: nausea and headache since 0200. Coronavirus screen: lg3 Client denies travel out of the [place] in the last 14 days. At this time, the client does not indicate any symptoms associated with coronavirus-19. Ebola Screen: No symptoms or risks identified at this time. Initial Sepsis Screen: Does the patient meet any 2 criteria? No. Patient's initial sepsis screen is negative. Does the patient have a suspected source of infection? No. Patient's initial sepsis screen is negative. Risk Assessment: Do you want to hurt yourself or someone else? Patient reports no desire to harm self or others. Onset of symptoms was October 08, 2022. 05:49 Method Of Arrival: EMS: [facility] 3 05:49 Acuity: BLAYNE 4 lg3 Triage Assessment: 05:54 General: Appears in no apparent distress. comfortable, Behavior is calm, cooperative. lg3 Pain: Complains of pain in head and epigastric region Pain does not radiate. EENT: No deficits noted. No signs and/or symptoms were reported regarding the EENT system. Neuro: No deficits noted. Gonzalez Agitation-Sedation Scale (RASS): 0 - Alert and Calm Level of Consciousness is awake, alert, obeys commands, Oriented to person, place, time, situation. Cardiovascular: No deficits noted. Denies chest pain, shortness of breath, Capillary refill < 3 seconds Clubbing of nail beds is absent JVD is absent Patient's skin is warm and dry. Respiratory: No deficits noted. Airway is patent Respiratory effort is even, unlabored, Respiratory pattern is regular, symmetrical. GI: No deficits noted. Abdomen is round non-distended, Bowel sounds present X 4 quads. Abd is soft X 4 quads. : No deficits noted. No signs and/or symptoms were reported regarding the genitourinary system. Derm: No deficits noted. No signs and/or symptoms reported regarding the dermatologic system. Skin is intact, is healthy with good turgor, Skin is dry, Skin is normal, Skin temperature is warm. Musculoskeletal: No deficits noted. No signs and/or symptoms reported regarding the musculoskeletal system. Circulation, motion, and sensation intact. Range of motion: intact in all extremities. Historical: - Allergies: 05:54 Azithromycin; lg3 05:54 Bactrim; lg3 05:54 butorphanol; lg3 05:54 Fentanyl; lg3 05:54 Reglan; lg3 05:54 Sulfa (Sulfonamide Antibiotics); lg3 05:54 TRIMETHOPRIM; lg3 - Home Meds: 05:54 lisinopril Oral [Active]; Metoprolol Tartrate Oral [Active]; lg3 - PMHx: 05:54 angina pectoris; Anxiety; Atrial fibrillation; Bipolar disorder; esophageal varicies; lg3 Hepatitis; HIV positive; Hypertensive disorder; Migraine; panic attack; Angina pectoris; - Immunization history:: Adult Immunizations up to date. - Social history:: Smoking status: Patient denies any tobacco usage or history of. Patient/guardian denies using alcohol, street drugs. Screenin:00 [facility] ED Fall Risk Assessment (Adult) History of falling in the last 3 months, lg3 including since admission No falls in past 3 months (0 pts). Abuse screen: Denies threats or abuse. Denies injuries from another. Nutritional screening: No deficits noted. Tuberculosis screening: No symptoms or risk factors identified. Assessment: 05:59 General: see triage assessment . lg3 06:00 General: PT departed ED prior to signing DC paperwork. lg3 Vital Signs: 05:49 BP 174 / 85; Pulse 59; Resp 16 S; Temp 98.6(O); Pulse Ox 98% on R/A; Weight 80.74 kg lg3 (R); Height 5 ft. 4 in. (R); 05:49 Body Mass Index 30.55 (80.74 kg, 162.56 cm) lg3 ED Course: 05:49 Patient arrived in ED. lg3 05:49 Christine Perdomo, RN is Primary Nurse. lg3 05:50 Heladio Collins MD is Attending Physician. sp3 05:53 Triage completed. lg3 05:54 Arm band placed on pt refused. lg3 06:00 Bed in low position. Call light in reach. Side rails up X 1. Client placed on lg3 continuous cardiac and pulse oximetry monitoring. NIBP monitoring applied. Door closed. Noise minimized. Warm blanket given. 06:00 No provider procedures requiring assistance completed. Patient did not have IV access lg3 during this emergency room visit. Administered Medications: No medications were administered Medication: 06:00 VIS not applicable for this client. lg3 Outcome: 05:55 Discharge ordered by . sp3 06:00 Discharged to home ambulatory. lg3 06:00 Condition: stable 06:01 Patient left the ED. lg3 Signatures: Christine Perdomo, RN RN lg3 Heladio Collins MD MD sp3
--- OUTSIDE RECORDS SUMMARY | 2022-10-08 06:05 | XMS REPORT | Continuity of Care Document ---
:1955 Author Organization [facility] t Address [address] [place] [address] Care Team Providers Name Role Phone Urmila Rahman Primary Care Physician SHARAN ALVARADO Attending Clinician Unavailable KINJALBEVERLY Attending Clinician Unavailable [...] Unavailable Robbi Bal Attending Clinician [facility] Attending Clinician Unavailable Isaias Whiteside RN Attending Clinician Unavailable TOMY MARIE Attending Clinician Unavailable Reilly Means MD Attending Clinician Ofe Shields MD Attending Clinician Tomy Marie MD Attending Clinician Doctor Unassigned, [place] Attending Clinician Unavailable Bill COLES Attending Clinician Unavailable Bill Rose Attending Clinician CHARITY MCALLISTER Attending Clinician Unavailable Charity Mcallister MD Attending Clinician GADIEL KOEHLER Attending Clinician Unavailable Mike Lund Attending Clinician Unavailable NIKOLAI REEVES Attending Clinician Unavailable Eliseo Arce MD Attending Clinician Carol Ann IZQUIERDO, Sarai Lieberman Attending Clinician [phone] Ashly Pelletier MA Attending Clinician Unavailable Dagoberto Bass MD Attending Clinician [place] Evangelista Attending Clinician Lab, [facility] Pob I Attending Clinician Unavailable Monica Rodas MA Attending Clinician Unavailable Agustina Ortiz MA Attending Clinician Unavailable Rody Maguire RN Attending Clinician Unavailable Remigio MD, Saraswathi V. Attending Clinician HEMATPOUR, BEVERLY Attending Clinician Unavailable Caridad SALGUERO, Gloria Attending Clinician Xiao RAMIREZ, Michael Corbin Attending Clinician Unavailable Team, [facility] Attending Clinician UnavailDO PORSHA Newell Attending Clinician Unavailable Gadeil Koehler MD Attending Clinician Tyrone JENKINS, Eveline Sierra Attending Clinician Eladio Colorado RN Attending Clinician Unavailable Geraldine SALGUERO, Leyda Attending Clinician [phone] Selvin RAMIREZ, Stefanie Attending Clinician Unavailable HOME MATTHEWS Admitting Clinician Unavailable ANETTE OLEA Admitting Clinician Unavailable TOMY MARIE Admitting Clinician Unavailable Frank EJNKINS, Tomy Admitting Clinician Bill COLES Admitting Clinician Unavailable Lacey UrmilaBibianaFrancisco Kristen Admitting Clinician Unavailable Mike Lund Admitting Clinician Unavailable ELISEO ARCE Admitting Clinician Unavailable DO PORSHA STREETER Admitting Clinician Unavailable Payers Payer Name Policy Type Policy Number Effective Date Expiration Date S gabino [facility] COMM[facility]ITY [facility] [id number] 2012 STAR PLUS OON 00:00:00 [facility] [id number] 2019 DUAL COMPLETE HMO 00:00:00 [facility] [id number] 2019 PLUS 00:00:00 [facility] [id number] 2019 [facility] [place] STAR 00:00:00 [employer] MEDICARE ADV [id number] 2019 2019 00:00:00 00:00:00 Problems Condition Condition Condition Status Onset Resolution Last Treating Co mments Source Name Details Category Date Date Treatment Clinician Date Dyspnea, Dyspnea, Disease Active Unive rs unspecifie unspecifie 02-11 it y of d type d type 00:00: [place] [address] Medical Branch Gastropare Gastropare Disease Active Overview : Methodi sis sis 4-[address] 00:00: [facility] note l might be different from the original. Added automatic ally from request for surgery [id number] Dysphagia Dysphagia Disease Active Overview: Methodi 4-[address] 00:00: [facility] 00 note l might be different from the original. Added automatic ally from request for surgery [id number] CCL / EPS CCL / EPS Diagnosis Active 2020-10-15 Get PVI PVI 3-30 17:07:00 l ABLATION ABLATION 00:00: Patel n W/ CARTO / W/ CARTO / 00 GA / T GA / T Active 08/19/2020 [place] [facility] Food Food Disease Active 2019-05 Methodi intoleranc [...] Active 2014-05 Univers 0-03 ity of 00:00: [place] [facility] Hypovolemi Hypovolemi Disease Active 2014-05 [...] [facility] hoxazole 1-25 Clear 00:00: Garcia 00 [facility] trimetho DA Active SV [facility] prim 1-25 Clear 00:00: Garcia [facility] codeine DA Active SV N/V [facility] 1-25 Clear 00:00: Garcia [facility] Metoclop Propensi Active [place] ramide ty to 12-12 Health adverse 00:00: reaction 00 s BUTORPHA DRUG Active Unknown-Cmnt Un matt NOL INGREDI 11-25 ity of 00:00: [place] [facility] Butorpha Drug Active Unknown - [...] 2017- Univers INGREDI 2-08 ity of 00:00: [place] [facility] TRIMETHO DRUG Active Hives Univers [...] Date Stop Date Source Natural father Diabetes [facility] Natural father Other - see comments [facility] father [facility] Natural mother [facility] Social History Social Habit Start Date Stop Date Quantity Comments Source Gender identity 2020-10-06 Identifies as [facility] 15:23:56 female gender Hospital (finding) History SDOH [facility] Alcohol Frequency Hospita l History SDOH [facility] Alcohol Std Drinks Hospit al History SDOH [facility] Sexual orientation [facility] History of Social 2022-08-26 2022-08-[address] function 00:00:00 00:00:00 Hospital Exposure to 2022-04-30 2022-05-10 Yes University of SARS-CoV-2 (event) 00:00:00 10:25:00 [facility] Tobacco use and 2022-02-11 2022-02-11 Former smokeless Uni versity of exposure 00:00:00 00:00:00 tobacco user [facility] Tobacco Comment 2022-02-11 2022-02-11 Smokes approx 1-2 Un iversity of 00:00:00 00:00:00 cigarettes per [facility] day when she Branch smokes Alcohol intake 2020-12-08 2020-12-08 Current drinker [facility] dist 00:00:00 00:00:00 of [facility] Hospital (finding) Cigarettes smoked 2020-09-05 2020-09-[address] current (pack per 00:00:00 00:00:00 Hospita l day) - Reported Cigarette 2020-09-05 2020-09-05 [facility] pack-years 00:00:00 00:00:00 Hospital Alcohol Comment 2016-09-23 2016-09-23 rare [facility] 00:00:00 00:00:00 Hospital History of tobacco 2011-09-29 User of smokeless University of use 00:00:00 tobacco [facility] Sex Assigned At [birth year] [facility] 00:00:00 00:00:00 Smoking Status Start Date Stop Date Source Ex-smoker 2022-02-11 00:00:00 2022-02-11 00:00:00 [facility] [place] [facility] Medications Ordered Filled Start Stop Current Ordering Indication Dosage Frequency Signature Comments Components Source Medication Medication Date Date Medication? Clinician (SIG) Name Name GEOFFREY Yes [id number] Take one Univers tablet 5-08 po daily ity of 00:00: [place] 00 Medical Branch raltegravir Yes [id number] 400mg Take 1 Univers (ISENTRESS) 5-08 tablet by ity of 400 mg 00:00: mouth in [place] tablet 00 the Medical morning Branch and 1 tablet in the evening. emtricitabi Yes [id number] Take one Univers ne-tenofovi 4-04 po daily ity of r alafen 00:00: [place] (DESCOVY) 00 Medical tablet Branch emtricitabi Yes [id number] Take one Univers ne-tenofovi 4-04 po daily ity of r alafen 00:00: [place] (DESCOVY) 00 Medical tablet Branch emtricitabi 2022- No [id number] Take one Univers ne-tenofovi 4-04 05-08 po [...] ity of infusion 17:45: 20:00 1,000 mL, [place] as 1,000 mL 00 :00 IV Medical Infusion, Branch ONCE, 1 dose, On 05/10/22 at 1145, JOE cefpodoxime 2021-05- No [id number] 100mg Take 1 Univers 100 mg 2-17 12-25 tablet by ity of tablet 00:00: 05:59 mouth in [place] 00 :00 the Medical morning Branch and 1 tablet in the evening. Do all this for 7 days. cefpodoxime 2021-05- No [id number] 100mg Take 1 Univers 100 mg 2-17 12-25 tablet by ity of tablet 00:00: 05:59 mouth in [place] 00 :00 the Medical morning Branch and 1 tablet in the evening. Do all this for 7 days. cefpodoxime 2021-05- No [id number] 100mg Take 1 Univers 100 mg 2-17 [...] :00 ONCE, 1 Medical dose, On Branch [facility] 05/06/22 at 1600, JOE NaCl 0.9% [...] :00 dose, On Medi porfirio mg [place] 05/06/22 at 1515, JOE ondansetron 2021-05 Yes [id number] 1-2 U nivers 4 mg tablet 2-15 tablets ity o f 00:00: every 8 [place] 00 hours as Medical needed for Branch nausea benzonatate 2021-05 Yes [id number] 200mg Take 1 Univers 200 mg 2-15 capsule by ity of capsule 00:00: mouth 3 [place] 00 (three) Medical times Branch daily as needed for Cough. albuterol 2021-05 Yes [id number] 2{puff} Inhale 2 Univers 90 2-15 Puffs ity of mcg/actuati 00:00: every 4 [place] as on inhaler 00 (four) Medical hours as Branch needed for Wheezing or Shortness of Breath. butalbital- 2021-05 Yes [id number] 1{tbl} Take 1 Univers acetaminoph 2-15 tablet by ity of en-caff 00:00: mouth [place] 50-325-40 00 every 4 Medical mg tablet (four) Branch hours as needed (headache) . ondansetron 2021-05 Yes [id number] 1-2 U nivers 4 mg tablet 2-15 tablets ity o f 00:00: every 8 [place] 00 hours as Medical needed for Branch nausea benzonatate 2021-05 Yes [id number] 200mg Take 1 Univers 200 mg 2-15 capsule by ity of capsule 00:00: mouth 3 (three) Medical times Branch daily as needed for Cough. albuterol 2021-05 Yes [id number] 2{puff} Inhale 2 Univers 90 2-15 Puffs ity of mcg/actuati 00:00: every 4 [place] as on inhaler 00 (four) Medical hours as Branch needed for Wheezing or Shortness of Breath. butalbital- 2021-05 Yes [id number] 1{tbl} Take 1 Univers acetaminoph 2-15 tablet by ity of en-caff 00:00: mouth [place] 50-325-40 00 every 4 Medical mg tablet (four) Branch hours as needed (headache) . ondansetron 2021-05 Yes [id number] 1-2 U nivers 4 mg tablet 2-15 tablets ity o f 00:00: every 8 [place] 00 hours as Medical needed for Branch nausea benzonatate 2021-05 Yes [id number] 200mg Take 1 Univers 200 mg 2-15 capsule by ity of capsule 00:00: mouth 3 (three) Medical times Branch daily as needed for Cough. albuterol 2021-05 Yes [id number] 2{puff} Inhale 2 Univers 90 2-15 Puffs ity of mcg/actuati 00:00: every 4 [place] on inhaler 00 (four) Medical hours as Branch needed for Wheezing or Shortness of Breath. butalbital- 2021-05 Yes [id number] 1{tbl} Take 1 Univers acetaminoph 2-15 tablet by ity of en-caff 00:00: mouth [place] 50-325-40 00 every 4 Medical mg tablet (four) Branch hours as needed (headache) . ondansetron 2021-05 Yes [id number] 1-2 U nivers 4 mg tablet 2-15 tablets ity o f 00:00: every 8 [place] 00 hours as Medical needed for Branch nausea benzonatate 2021-05 Yes [id number] 200mg Take 1 Univers 200 mg 2-15 capsule by ity of capsule 00:00: mouth 3 00 (three) Medical times Branch daily as needed for Cough. albuterol 2021-05 Yes [id number] 2{puff} Inhale 2 Univers 90 2-15 Puffs ity of mcg/actuati 00:00: every 4 [place] on inhaler 00 (four) Medical hours as Branch needed for Wheezing or Shortness of Breath. butalbital- 2021-05 Yes [id number] 1{tbl} Take 1 Univers acetaminoph 2-15 tablet by ity of en-caff 00:00: mouth [place] 50-325-40 00 every 4 Medical mg tablet (four) Branch hours as needed (headache) . ondansetron 2021-05 Yes [id number] 1-2 U nivers 4 mg tablet 2-15 tablets ity o f 00:00: every 8 [place] 00 hours as Medical needed for Branch nausea benzonatate 2021-05 Yes [id number] 200mg Take 1 Univers 200 mg 2-15 capsule by ity of capsule 00:00: mouth 3 [place] 00 (three) Medical times Branch daily as needed for Cough. albuterol 2021-05 Yes [id number] 2{puff} Inhale 2 Univers 90 2-15 Puffs ity of mcg/actuati 00:00: every 4 [place] on inhaler 00 (four) Medical hours as Branch needed for Wheezing or Shortness of Breath. butalbital- 2021-05 Yes [id number] 1{tbl} Take 1 Univers acetaminoph 2-15 tablet by ity of en-caff 00:00: mouth [place] 50-325-40 00 every 4 Medical mg tablet (four) Branch hours as needed (headache) . ondansetron 2021-05 Yes [id number] 1-2 U nivers 4 mg tablet 2-15 tablets ity o f 00:00: every 8 [place] 00 hours as Medical needed for Branch nausea benzonatate 2021-05 Yes [id number] 200mg Take 1 Univers 200 mg 2-15 capsule by ity of capsule 00:00: mouth 3 [place] 00 (three) Medical times Branch daily as needed for Cough. albuterol 2021-05 Yes [id number] 2{puff} Inhale 2 Univers 90 2-15 Puffs ity of mcg/actuati 00:00: every 4 [place] on inhaler 00 (four) Medical hours as Branch needed for Wheezing or Shortness of Breath. butalbital- 2021-05 Yes [id number] 1{tbl} Take 1 Univers acetaminoph 2-15 tablet by ity of en-caff 00:00: mouth [place] 50-325-40 00 every 4 Medical mg tablet (four) Branch hours as needed (headache) . ondansetron 2021-05 Yes [id number] 1-2 U nivers 4 mg tablet 2-15 tablets ity o f 00:00: every 8 [place] 00 hours as Medical needed for Branch nausea benzonatate 2021-05 Yes [id number] 200mg Take 1 Univers 200 mg 2-15 capsule by ity of capsule 00:00: mouth 3 [place] 00 (three) Medical times Branch daily as needed for Cough. albuterol 2021-05 Yes [id number] 2{puff} Inhale 2 Univers 90 2-15 Puffs ity of mcg/actuati 00:00: every 4 [place] on inhaler 00 (four) Medical hours as Branch needed for Wheezing or Shortness of Breath. butalbital- 2021-05 Yes [id number] 1{tbl} Take 1 Univers acetaminoph 2-15 tablet by ity of en-caff 00:00: mouth [place] 50-325-40 00 every 4 Medical mg tablet (four) Branch hours as needed (headache) . ondansetron 2021-05 Yes [id number] 1-2 U nivers 4 mg tablet 2-15 tablets ity o f 00:00: every 8 [place] 00 hours as Medical needed for Branch nausea benzonatate 2021-05 Yes [id number] 200mg Take 1 Univers 200 mg 2-15 capsule by ity of capsule 00:00: mouth 3 00 (three) Medical times Branch daily as needed for Cough. albuterol 2021-05 Yes [id number] 2{puff} Inhale 2 Univers 90 2-15 Puffs ity of mcg/actuati 00:00: every 4 [place] on inhaler 00 (four) Medical hours as Branch needed for Wheezing or Shortness of Breath. butalbital- 2021-05 Yes [id number] 1{tbl} Take 1 Univers acetaminoph 2-15 tablet by ity of en-caff 00:00: mouth [place] 50-325-40 00 every 4 Medical mg tablet (four) Branch hours as needed (headache) . ondansetron 2021-05 Yes [id number] 1-2 U nivers 4 mg tablet 2-15 tablets ity o f 00:00: every 8 [place] 00 hours as Medical needed for Branch nausea benzonatate 2021-05 Yes [id number] 200mg Take 1 Univers 200 mg 2-15 capsule by ity of capsule 00:00: mouth 3 [place] 00 (three) Medical times Branch daily as needed for Cough. albuterol 2021-05 Yes [id number] 2{puff} Inhale 2 Univers 90 2-15 Puffs ity of mcg/actuati 00:00: every 4 [place] as on inhaler 00 (four) Medical hours as Branch needed for Wheezing or Shortness of Breath. butalbital- 2021-05 Yes [id number] 1{tbl} Take 1 Univers acetaminoph 2-15 tablet by ity of en-caff 00:00: mouth [place] 50-325-40 00 every 4 Medical mg tablet (four) Branch hours as needed (headache) . [facility]- No [id number] 2{tbl} Take 2 Univers r-ritonavir 2-15 12-21 tablets by i ty of (PAXLOVID, 00:00: 05:59 mouth in [place] EUA,) 300 00 :00 the Medical mg (150 mg morning Branch x 2)-100 mg and 2 tablet tablets in the evening. Do all this for 5 days. nirmatrelvi 2021-05- No [id number] 2{tbl} Take 2 Univers r-ritonavir 2-15 12-21 tablets by i ty of (PAXLOVID, 00:00: 05:59 mouth [place] EUA[place] 300 00 :00 the Medical mg (150 mg morning Branch x 2)-100 mg and 2 tablet tablets in the evening. Do all this for 5 days. nirkytrelvi 2021-05- No [id number] 2{tbl} Take 2 Univers r-ritonavir 2-15 12-21 tablets by i ty of (PAXLOVID, 00:00: 05:59 mouth [place] EUA[place] 300 00 :00 the Medical mg (150 mg morning Branch x 2)-100 mg and 2 tablet tablets in the evening. Do all this for 5 days. nirmatrelvi 2021-05- No [id number] 2{tbl} Take 2 Univers r-ritonavir 2-15 12-21 [...] 04/22/22 at 1645, Routine amoxicillin 2021-05 Yes [id number] 1{tbl} Take 1 Univers -clavulanat 2- [id number] tablet by i ty of e 875-125 00:00: mouth [place] mg per 00 every 12 Medical tablet (twelve) Branch hours. ondansetron 2021-05 Yes [id number] 4mg Take 1 Univers 4 mg 2- 202038 tablet by ity of disintegrat 00:00: mouth [place] ing tablet 00 every 8 Medica l (eight) Branch hours as needed for Nausea and Vomiting (N/V). amoxicillin 2021-05 Yes [id number] 1{tbl} Take 1 Univers -clavulanat 2- [id number] tablet by i ty of e 875-125 00:00: mouth [place] mg per 00 every 12 Medical tablet (twelve) Branch hours. ondansetron 2021-05 Yes [id number] 4mg Take 1 Univers 4 mg 2- [id number] tablet by ity of disintegrat 00:00: mouth [place] ing tablet 00 every 8 Medica l (eight) Branch hours as needed for Nausea and Vomiting (N/V). amoxicillin 2021-05 Yes [id number] 1{tbl} Take 1 Univers -clavulanat 2-01 [id number] tablet by i ty of e 875-125 00:00: mouth [place] mg per 00 every 12 Medical tablet (twelve) Branch hours. ondansetron 2021-05 Yes [id number] 4mg Take 1 Univers 4 mg 2- [id number] tablet by ity of disintegrat 00:00: mouth [place] ing tablet 00 every 8 Medica l (eight) Branch hours as needed for Nausea and Vomiting (N/V). amoxicillin 2021-05 Yes [id number] 1{tbl} Take 1 Univers -clavulanat 2-01 [id number] tablet by i ty of e 875-125 00:00: mouth [place] mg per 00 every 12 Medical tablet (twelve) Branch hours. ondansetron 2021-05 Yes [id number] 4mg Take 1 Univers 4 mg 2-01 [id number] tablet by ity of disintegrat 00:00: mouth [place] ing tablet 00 every 8 Medica l (eight) Branch hours as needed for Nausea and Vomiting (N/V). amoxicillin 2021-05 Yes [id number] 1{tbl} Take 1 Univers -clavulanat 2-01 [id number] tablet by i ty of e 875-125 00:00: mouth [place] mg per 00 every 12 Medical tablet (twelve) Branch hours. ondansetron 2021-05 Yes [id number] 4mg Take 1 Univers 4 mg 2- [id number] tablet by ity of disintegrat 00:00: mouth [place] ing tablet 00 every 8 Medica l (eight) Branch hours as needed for Nausea and Vomiting (N/V). amoxicillin 2021-05 Yes [id number] 1{tbl} Take 1 Univers -clavulanat 2-01 [id number] tablet by i ty of e 875-125 00:00: mouth [place] mg per 00 every 12 Medical tablet (twelve) Branch hours. ondansetron 2021-05 Yes [id number] 4mg Take 1 Univers 4 mg 2- [id number] tablet by ity of disintegrat 00:00: mouth [place] ing tablet 00 every 8 Medica l (eight) Branch hours as needed for Nausea and Vomiting (N/V). amoxicillin 2021-05 Yes [id number] 1{tbl} Take 1 Univers -clavulanat 2-01 [id number] tablet by i ty of e 875-125 00:00: mouth [place] mg per 00 every 12 Medical tablet (twelve) Branch hours. ondansetron 2021-05 Yes [id number] 4mg Take 1 Univers 4 mg 2-01 [id number] tablet by ity of disintegrat 00:00: mouth [place] ing tablet 00 every 8 Medica l (eight) Branch hours as needed for Nausea and Vomiting (N/V). amoxicillin 2021-05 Yes [id number] 1{tbl} Take 1 Univers -clavulanat 2-01 [id number] tablet by i ty of e 875-125 00:00: mouth [place] mg per 00 every 12 Medical tablet (twelve) Branch hours. ondansetron 2021-05 Yes [id number] 4mg Take 1 Univers 4 mg 2-01 [id number] tablet by ity of disintegrat 00:00: mouth [place] ing tablet 00 every 8 Medica l (eight) Branch hours as needed for Nausea and Vomiting (N/V). amoxicillin 2021-05 Yes [id number] 1{tbl} Take 1 Univers -clavulanat 2-01 [id number] tablet by i ty of e 875-125 00:00: mouth [place] mg per 00 every 12 Medical tablet (twelve) Branch hours. ondansetron 2021-05 Yes [id number] 4mg Take 1 Univers 4 mg 2- [id number] tablet by ity of disintegrat 00:00: mouth [place] ing tablet 00 every 8 Medica l (eight) Branch hours as needed for Nausea and Vomiting (N/V). amoxicillin 2021-05 Yes [id number] 1{tbl} Take 1 Univers -clavulanat 2-01 [id number] tablet by i ty of e 875-125 00:00: mouth [place] mg per 00 every 12 Medical tablet (twelve) Branch hours. ondansetron 2021-05 Yes [id number] 4mg Take 1 Univers 4 mg 2- [id number] tablet by ity of disintegrat 00:00: mouth [place] ing tablet 00 every 8 Medica l (eight) Branch hours as needed for Nausea and Vomiting (N/V). amoxicillin 2021-05 Yes [id number] 1{tbl} Take 1 Univers -clavulanat 2-01 [id number] tablet by i ty of e 875-125 00:00: mouth [place] mg per 00 every 12 Medical tablet (twelve) Branch hours. ondansetron 2021-05 Yes [id number] 4mg Take 1 Univers 4 mg 2-01 [id number] tablet by ity of disintegrat 00:00: mouth [place] ing tablet 00 every 8 Medica l (eight) Branch hours as needed for Nausea and Vomiting (N/V). zoster 2021-05- No [id number] .5mL 0.5 mL by Univers vaccine, 0-14 10-15 9104 Intramuscu ity of recombinant 00:00: 04:59 lar route [place] (SHINGRIX, 00 :00 once now Medic al PF,) for 1 Branch injection dose. And repeat in 2-6 months zoster 2021-05- No [id number] .5mL 0.5 mL by Univers vaccine, 0- 9104 Intramuscu ity of recombinant 00:00: 04:59 lar route [place] (SHINGRIX, 00 :00 once now Medic al PF,) for 1 Branch injection dose. And repeat in 2-6 months zoster 2021-05- No [id number] .5mL 0.5 mL by Univers vaccine, 0- [...] o f 1 mg tablet 19:28: at [place] [address] bedtime. Medical Branch traZODone Yes 50mg Take 50 mg Un matt 100 mg 9-27 by mouth ity of tablet 19:28: at [place] [address] bedtime. Medical Branch hydralAZINE Yes 25mg Take [...] o f 1 mg tablet 19:28: at [place] [address] bedtime. Medical Branch traZODone 2021-0 Yes 50mg Take 50 mg Un matt 100 mg 9- by mouth ity of tablet 19:28: at [place] [address] bedtime. Medical Branch hydralAZINE 2021-0 Yes 25mg [...] 100 mg 04 (two) Medical tablet times [place] daily. amLODIPine 2021-0 Yes 10mg Take 10 mg U nivers (NORVASC) 9-27 by mouth ity of 10 mg 19:28: daily. [place] tablet 04 Medical Branch clonazePAM 2021-0 Yes 1mg Take 1 mg Un matt (KLONOPIN) 9- by mouth ity o f 1 mg tablet 19:28: at [place] [address] bedtime. Medical Branch traZODone 2021-0 Yes 50mg Take 50 mg Un matt 100 mg 9-27 by mouth ity of tablet 19:28: at [place] [address] bedtime. Medical Branch hydralAZINE 2021-0 Yes 25mg [...] o f 1 mg tablet 19:28: at [place] [address] bedtime. Medical Branch traZODone 2021-0 Yes 50mg Take 50 mg Un matt 100 mg 9-27 by mouth ity of tablet 19:28: at [place] [address] bedtime. Medical Branch hydralAZINE 2021-0 Yes 25mg [...] mouth ity of 10 mg 19:28: daily. [place] tablet 04 Medical Branch clonazePAM 2021-0 Yes 1mg Take 1 mg Un matt (KLONOPIN) 9-27 by mouth ity o f 1 mg tablet 19:28: at [place] [address] bedtime. Medical Branch traZODone 2-0 Yes 50mg Take 50 mg Un matt 100 mg 9-27 by mouth ity of tablet 19:28: at [place] [address] bedtime. Medical Branch hydralAZINE 2022-0 Yes 25mg [...] o f 1 mg tablet 19:28: at [place] [address] bedtime. Medical Branch traZODone 2-0 Yes 50mg Take 50 mg Un matt 100 mg 9-27 by mouth ity of tablet 19:28: at [place] [address] bedtime. Medical Branch hydralAZINE 2-0 Yes 25mg [...] o f 1 mg tablet 19:28: at [place] [address] bedtime. Medical Branch traZODone 2021-0 Yes 50mg Take 50 mg Un matt 100 mg 9-27 by mouth ity of tablet 19:28: at [place] [address] bedtime. Medical Branch hydralAZINE 2021-0 Yes 25mg [...] o f 1 mg tablet 19:28: at [place] [address] bedtime. Medical Branch traZODone 2021-0 Yes 50mg Take 50 mg Un matt 100 mg 9-27 by mouth ity of tablet 19:28: at [place] [address] bedtime. Medical Branch hydralAZINE 2021-0 Yes 25mg [...] o f 1 mg tablet 19:28: at [place] [address] bedtime. Medical Branch traZODone 2021-0 Yes 50mg Take 50 mg Un matt 100 mg 9-27 by mouth ity of tablet 19:28: at [place] [address] bedtime. Medical Branch hydralAZINE 2021-0 Yes 25mg [...] o f 1 mg tablet 19:28: at [place] [address] bedtime. Medical Branch traZODone 2021-0 Yes 50mg Take 50 mg Un matt 100 mg 9- by mouth ity of tablet 19:28: at [place] [address] bedtime. Medical Branch hydralAZINE 2021-0 Yes 25mg [...] o f 1 mg tablet 19:28: at [place] [address] bedtime. Medical Branch traZODone 2021-0 Yes 50mg Take 50 mg Un matt 100 mg 9-27 by mouth ity of tablet 19:28: at [place] [address] bedtime. Medical Branch hydralAZINE 2021-0 Yes 25mg [...] o f 1 mg tablet 19:28: at [place] [address] bedtime. Medical Branch traZODone 2021-0 Yes 50mg Take 50 mg Un matt 100 mg 9-27 by mouth ity of tablet 19:28: at [place] [address] bedtime. Medical Branch hydralAZINE 2021-0 Yes 25mg [...] o f 1 mg tablet 19:28: at [place] [address] bedtime. Medical Branch traZODone 2021-0 Yes 50mg Take 50 mg Un matt 100 mg 9-27 by mouth ity of tablet 19:28: at [place] [address] bedtime. Medical Branch hydralAZINE 2021-0 Yes 25mg [...] 100 mg 04 (two) Medical tablet times [place] daily. amLODIPine 2021-0 Yes 10mg Take 10 mg U nivers (NORVASC) 9-27 by mouth ity of 10 mg 19:28: daily. [place] tablet 04 Medical Branch clonazePAM 2021-0 Yes 1mg Take 1 mg Un matt (KLONOPIN) 9-27 by mouth ity o f 1 mg tablet 19:28: at [place] [address] bedtime. Medical Branch traZODone 2021-0 Yes 50mg Take 50 mg Un matt 100 mg 9-27 by mouth ity of tablet 19:28: at [place] [address] bedtime. Medical Branch hydralAZINE 2021-0 Yes 25mg [...] o f 1 mg tablet 19:28: at [place] [address] bedtime. Medical Branch traZODone 2021-0 Yes 50mg Take 50 mg Un matt 100 mg 9-27 by mouth ity of tablet 19:28: at [place] [address] bedtime. Medical Branch hydralAZINE 2021-0 Yes 25mg [...] 100 mg 04 (two) Medical tablet times [place] daily. amLODIPine 2021-0 Yes 10mg Take 10 mg U nivers (NORVASC) 9-27 by mouth ity of 10 mg 19:28: daily. [place] tablet 04 Medical Branch clonazePAM 2021-0 Yes 1mg Take 1 mg Un matt (KLONOPIN) 9-27 by mouth ity o f 1 mg tablet 19:28: at [place] [address] bedtime. Medical Branch traZODone 2021-0 Yes 50mg Take 50 mg Un matt 100 mg 9-27 by mouth ity of tablet 19:28: at [place] [address] bedtime. Medical Branch hydralAZINE 2021-0 Yes 25mg [...] o f 1 mg tablet 19:28: at [place] [address] bedtime. Medical Branch traZODone 2-0 Yes 50mg Take 50 mg Un matt 100 mg 9-27 by mouth ity of tablet 19:28: at [place] [address] bedtime. Medical Branch hydralAZINE 2021-0 Yes 25mg [...] o f 1 mg tablet 19:28: at [place] [address] bedtime. Medical Branch traZODone 2-0 Yes 50mg Take 50 mg Un matt 100 mg 9-27 by mouth ity of tablet 19:28: at [place] [address] bedtime. Medical Branch hydralAZINE 2-0 Yes 25mg [...] mouth ity of 10 mg 19:28: daily. [place] tablet 04 [facility] Branch clonazePAM 0 Yes 1mg Take 1 mg Un matt (KLONOPIN) 02-16 by mouth ity o f 1 mg tablet 19:28: at [place] [address] bedtime. Medical Branch traZODone 0 Yes 50mg Take 50 mg Un matt 100 mg 02-16 by mouth ity of tablet 19:28: at [place] [address] bedtime. Medical Branch cefpodoxime 2021-0 202- No [id number] 200mg Take 1 [facility] 200 mg 02-16 tablet by ity of tablet 00:00: 04:59 mouth in [place] 00 :00 the Medical morning Branch and 1 tablet in the evening. Do all this for 3 days. cefpodoxime 2021-0 2022- No [id number] 200mg Take 1 Univers 200 mg 02-16 tablet by ity of tablet 00:00: 04:59 mouth in [place] 00 :00 the [facility] morning Branch and 1 tablet [...] Sherrie (ESGIC) 06 Starting Medical 50-325-40 on [facility] Branch mg tablet 1 02/13/22 at tablet 1346, Until Discontinu ed, Routine, headaches dicyclomine Yes 10mg 10 mg, Univ ers (BENTYL) 02-13 Oral, QID, ity o f capsule 10 17:00: First dose [place] mg 00 on [facility] 02/13/22 at Branch 1200, Until Discontinu ed, Routine tiZANidine Yes 4mg 4 mg, Univer s (ZANAFLEX) 02-12 Oral, Q8H, ity of tablet 4 mg 19:00: First dose [place] 00 on Tue [facility] 02/12/22 at Branch 1400, Until Discontinu ed, Routine HYDROmorpho Yes 4mg 4 mg, Unive rs ne 02-12 Oral, ity of (DILAUDID) 17:37: Q6HPRN, [place] tablet 4 mg 07 Starting Medi porfirio on Tue [place] 02/12/22 at 1237, Until Discontinu ed, Routine, Pain (scale 4-6) morpHINE (2 2021- No 2mg 2 mg, Slow Univers mg/mL) 02-12 IV Push, ity of injection 2 17:36: 20:36 Q6HPRN, [place] mg 46 :24 Starting Medical on Tue [place] 02/12/22 at 1236, Until [place] 02/14/22 at 1536, Routine, Pain (scale 7-10) [...] [place] mg 37 Starting Medical on [facility] Branch 02/11/22 at 1618, Until Discontinu ed, Routine, SBP > 170 nystatin-tr 2021-0 Yes Topical, Un matt iamcinolone 02-11 TID, First it y of (MYCOLOG) 19:00: dose on [place] cream 00 [facility] Medical 02/11/22 at Branch 1400, Until Discontinu ed, Routine busPIRone 2021-0 Yes 30mg 30 mg, Univer s (BUSPAR) 02-11 Oral, BID, ity o f tablet 30 18:00: First dose [place] mg 00 on [facility] Medical 02/11/22 at Branch 1300, Until Discontinu ed, Routine raltegravir 2021-0 Yes 400mg 400 mg, Un matt (ISENTRESS) 02-11 Oral, BID, it y of tablet 400 18:00: First dose [place] mg 00 on [facility] Medical 02/11/22 at Branch 1300, Until Discontinu ed, JOE metoprolol 2021-0 Yes 100mg 100 mg, Uni vers tartrate 02-11 Oral, BID, ity o f (LOPRESSOR) 18:00: First dose [place] tablet 100 00 on [facility] Medical mg 02/11/22 at Branch 1300, Until Discontinu ed, Routine lisinopriL 2021-0 Yes 40mg 40 mg, Unive rs (PRINIVIL,Z 02-11 Oral, BID, it y of ESTRIL) 18:00: [place] tablet 40 00 on [facility] Medical mg 02/11/22 at Branch 1300, Until Discontinu ed, Routine emtricitabi 2021-0 Yes 1{tbl} 1 tablet, Univers ne-tenofovi 02-11 Oral, ity of r alafen 18:00: DAILY, [place] (DESCOVY) 00 First dose Medi porfirio tablet 1 on [facility] Branch tablet 02/11/22 at 1300, Until Discontinu ed, Routine ipratropium 2021-0 Yes .5mg 0.5 mg, Uni vers (ATROVENT) 02-11 Inhalation ity of 0.02 % 17:57: , QIDPRN, [place] nebulizer 10 Starting Medica l solution on [facility] Branch 0.5 mg 02/11/22 at 1257, Until Discontinu ed, Routine, Wheezing, Shortness of Breath amLODIPine Yes 10mg 10 mg, Unive rs (NORVASC) 02-11 Oral, ity of tablet 10 17:30: DAILY, [place] mg 00 First dose Medical (after Branch last modificati on) on [facility] 02/11/22 at 1230, Until Discontinu ed, Routine hydrALAZINE 2021- No 25mg 25 mg, Uni vers (APRESOLINE 02-11 Oral, ity of ) tablet 25 17:30: 12:54 DAILY, [place] mg 00 :55 First dose Medical (after Branch last modificati on) on [facility] 02/11/22 at 1230, Until Discontinu ed, Routine HYDROcodone 2021- No 1{tbl} 1 tablet, Univers -acetaminop 02-11 Oral, ity of [place] (NORCO 14:11: 17:37 Q6HPRN, [place] 5) 5-325 mg 03 :24 Starting Medi porfirio tablet 1 on [facility] Branch tablet 02/11/22 at 0911, Until Tue02/12/22 at 1237, Routine, Pain (scale 7-10) melatonin Yes 3mg 3 mg, Univers (MELATIN) 02-11 Oral, ity of tablet 3 mg 14:08: QHSPRN, [place] 17 Starting Medical on [facility] Branch 02/11/22 at 0908, Until Discontinu ed, Routine, Insomnia acetaminoph 2021- No 1{tbl} 1 tablet, Univers en-codeine 02-11 Oral, ity of (TYLENOL 14:06: 17:37 Q6HPRN, [place] #3) 300-30 19 :24 Starting Medic al mg tablet 1 on [facility] Branch tablet 02/11/22 at 0906, Until [...] IV Push, ity of (PF)) 14:05: Q6HPRN, [place] injection 4 59 Starting Medi porfirio mg on [place] Branch 02/11/22 at 0905, Until Discontinu ed, Routine, Nausea and Vomiting (N/V) acetaminoph 2021-0 Yes 650mg 650 mg, Un matt en 02-11 Oral, ity of (TYLENOL) 14:04: Q6HPRN, [place] tablet 650 37 Starting Medic al mg [...] 25 mg 09:10: daily. [place] tablet 54 Medical Branch amLODIPine 2021-0 Yes 10mg Take 10 mg U nivers (NORVASC) 02-11 by mouth ity of 10 mg 09:10: daily. [place] tablet 54 Medical Branch piperacilli 2021-0 202- [...] of therapy: 72 hours iopamidol 2021- No [id number] 60mL 60 mL, Univers (ISOVUE 02-11 Intravenou [...] Branch 02/11/22 at 0015, JOE emtricitabi Yes [id number] Take one Univers ne-tenofovi 9-12 po daily ity of r alafen 00:00: [place] (DESCOVY) 00 Medical tablet Branch emtricitabi Yes [id number] Take one Univers ne-tenofovi 9-12 po daily ity of r alafen 00:00: [place] (DESCOVY) 00 Medical [facility] [id number] Take one Univers ne-tenofovi 9-12 po daily ity of r alafen 00:00: [place] (DESCOVY) 00 Medical tablet Branch emtricita Yes [id number] Take one Univers ne-tenofovi 9-12 po daily ity of r alafen 00:00: [place] (DESCOVY) 00 Medical tablet Branch emtricita Yes [id number] Take one Univers ne-tenofovi 9-12 po daily ity of r alafen 00:00: [place] (DESCOVY) 00 Medical tablet Branch emtricita Yes [id number] Take one Univers ne-tenofovi 9-12 po daily ity of r alafen 00:00: [place] (DESCOVY) 00 Medical tablet Branch [facility] [id number] Take one Univers ne-tenofovi 9-12 po daily ity of r alafen 00:00: [place] (DESCOVY) 00 Medical tablet Branch [facility] [id number] Take one Univers ne-tenofovi 9-12 po daily ity of r alafen 00:00: [place] (DESCOVY) 00 Medical tablet Branch emtricita Yes [id number] Take one Univers ne-tenofovi 9-12 po daily ity of r alafen 00:00: [place] (DESCOVY) 00 Medical tablet Branch emtricita Yes [id number] Take one Univers ne-tenofovi 9-12 po daily ity of r alafen 00:00: [place] (DESCOVY) 00 Medical tablet Branch emtricita Yes [id number] Take one Univers ne-tenofovi 9-12 po daily ity of r alafen 00:00: [place] (DESCOVY) 00 Medical tablet Branch emtricita Yes [id number] Take one Univers ne-tenofovi 9-12 po daily ity of r alafen 00:00: [place] (DESCOVY) 00 Medical tablet Branch emtricita Yes [id number] Take one Univers ne-tenofovi 9-12 po daily ity of r alafen 00:00: [place] (DESCOVY) 00 Medical tablet Branch emtricitabi 0 Yes [id number] Take one Univers ne-tenofovi 9-12 po daily ity of r alafen 00:00: [place] (DESCOVY) 00 Medical tablet Branch emtricitabi 0 Yes [id number] Take one Univers ne-tenofovi 9-12 po daily ity of r alafen 00:00: [place] (DESCOVY) 00 Medical tablet Branch emtricitabi 0 Yes [id number] Take one Univers ne-tenofovi 9-12 po daily ity of r alafen 00:00: [place] (DESCOVY) 00 Medical tablet Branch emtricitabi Yes [id number] Take one Univers ne-tenofovi 9-12 po daily ity of r alafen 00:00: [place] (DESCOVY) 00 Medical tablet Branch emtricitabi 2023- No [id number] Take one Univers ne-tenofovi 9-12 04-04 po daily ity of r alafen 00:00: 00:00 [place] (DESCOVY) 00 :00 Medical tablet Branch emtricitabi 0 2023- No [id number] Take one Univers ne-tenofovi 9-12 04-04 po daily ity of r alafen 00:00: 00:00 [place] (DESCOVY) 00 :00 Medical tablet Branch naproxen 2021-0 Yes [id number] 500mg Take 1 U nivers (NAPROSYN) 7-24 tablet by ity of 500 mg 00:00: mouth in [place] tablet 00 the Medical morning Branch and 1 tablet in the evening. Take with meals. methocarbam 2021-0 Yes [id number] 500mg Take 1 Univers oL 500 mg 7-24 tablet by ity o f tablet 00:00: mouth 4 [place] 00 (four) Medical times Branch daily. naproxen 2021-0 Yes [id number] 500mg Take 1 U nivers (NAPROSYN) 7-24 tablet by ity of 500 mg 00:00: mouth in [place] tablet 00 the Medical morning Branch and 1 tablet in the evening. Take with meals. methocarbam 2021-0 Yes [id number] 500mg Take 1 Univers oL 500 mg 7-24 tablet by ity o f tablet 00:00: mouth 4 [place] 00 (four) Medical times [place] daily. naproxen 2021-0 Yes [id number] 500mg Take 1 U nivers (NAPROSYN) 7-24 tablet by ity of 500 mg 00:00: mouth in [place] tablet 00 the Medical morning Branch and 1 tablet in the evening. Take with meals. methocarbam 2021-0 Yes [id number] 500mg Take 1 Univers oL 500 mg 7-24 tablet by ity o f tablet 00:00: mouth 4 [place] 00 ([facility]) Medical times Branch daily. naproxen 2021-2021- No [id number] 500mg Take 1 Univers (NAPROSYN) 7-24 10-14 tablet by ity of 500 mg 00:00: 00:00 mouth in [place] tablet 00 :00 the Medical morning Branch and 1 tablet in the evening. Take with meals. methocarbam 2021- No [id number] 500mg Take 1 Univers oL 500 mg 7-24 10-14 tablet by ity of tablet 00:00: 00:00 mouth 4 [place] 00 :00 ([facility]) [facility] times [place] daily. naproxen 2021-2021- No [id number] 500mg Take 1 Univers (NAPROSYN) 7-24 10-14 tablet by ity of 500 mg 00:00: 00:00 mouth in [place] tablet 00 :00 the [facility] morning Branch and 1 tablet in the evening. Take with meals. methocarbam 2021- No [id number] 500mg Take 1 Univers oL 500 mg 7-24 10-14 tablet by ity of tablet 00:00: 00:00 mouth 4 [place] 00 :00 ([facility]) Medical times [place] daily. esomeprazol 2021- No 40mg Take 40 [...] No Take by [facility] ers (DESYREL) 11-20 mouth at ity o f 10 mg/mL 09:10: 00:00 bedtime. [place] oral 28 :00 Medical suspension Branch hydralAZINE Yes 25mg Take 25 mg Univers (APRESOLINE 11-20 by mouth ity of ) 25 mg 08:47: daily. [place] tablet 47 Medical Branch cephALEXin 2021- No [id number] 500mg Take 1 Univers (KEFLEX) 10-24 capsule [...] 7-10). Indication s: acute pain buPROPion Yes [id number] 150mg Take 1 U nivers XL 4-12 tablet by ity of (WELLBUTRIN 00:00: mouth [place] XL) 150 mg 00 daily. Medical 24 hr Branch tablet busPIRone Yes [id number] 30mg Take 1 Un matt 30 mg 4-12 tablet by ity of tablet 00:00: mouth 2 [place] 00 (two) Medical times Branch daily. SERTraline Yes [id number] 200mg Take 2 Univers 100 mg 4-12 tablets by ity of tablet 00:00: mouth [place] 00 daily. Medical Branch buPROPion Yes [id number] 150mg Take 1 U nivers XL 4-12 tablet by ity of (WELLBUTRIN 00:00: mouth [place] XL) 150 mg 00 daily. Medical 24 hr Branch tablet busPIRone Yes [id number] 30mg Take 1 Un mtat 30 mg 4-12 tablet by ity of tablet 00:00: mouth 2 [place] 00 (two) Medical times Branch daily. SERTraline 2021-0 Yes [id number] 200mg Take 2 Univers 100 mg 4-12 tablets by ity of tablet 00:00: mouth [place] 00 daily. Medical Branch buPROPion 2021-0 Yes [id number] 150mg Take 1 U nivers XL 4-12 tablet by ity of (WELLBUTRIN 00:00: mouth [place] XL) 150 mg 00 daily. Medical 24 hr Branch tablet busPIRone 2021-0 Yes [id number] 30mg Take 1 Un matt 30 mg 4-12 tablet by ity of tablet 00:00: mouth 2 [place] 00 (two) Medical times Branch daily. SERTraline 2021-0 Yes [id number] 200mg Take 2 Univers 100 mg 4-12 tablets by ity of tablet 00:00: mouth [place] 00 daily. Medical Branch buPROPion 2021-0 Yes [id number] 150mg Take 1 U nivers XL 4-12 tablet by ity of (WELLBUTRIN 00:00: mouth [place] XL) 150 mg 00 daily. Medical 24 hr Branch tablet busPIRone 2021-0 Yes [id number] 30mg Take 1 Un matt 30 mg 4-12 tablet by ity of tablet 00:00: mouth 2 00 (two) Medical times Branch daily. SERTraline 2021-0 Yes [id number] 200mg Take 2 Univers 100 mg 4-12 tablets by ity of tablet 00:00: mouth [place] 00 daily. Medical Branch buPROPion 2021-0 Yes [id number] 150mg Take 1 U nivers XL 4-12 tablet by ity of (WELLBUTRIN 00:00: mouth [place] XL) 150 mg 00 daily. Medical 24 hr Branch tablet busPIRone 2021-0 Yes [id number] 30mg Take 1 Un matt 30 mg 4-12 tablet by ity of tablet 00:00: mouth 2 [place] 00 (two) Medical times Branch daily. SERTraline 2021-0 Yes [id number] 200mg Take 2 Univers 100 mg 4-12 tablets by ity of tablet 00:00: mouth [place] 00 daily. Medical Branch buPROPion 2021-0 Yes [id number] 150mg Take 1 U nivers XL 4-12 tablet by ity of (WELLBUTRIN 00:00: mouth [place] XL) 150 mg 00 daily. Medical 24 hr Branch tablet busPIRone 2021-0 Yes [id number] 30mg Take 1 Un matt 30 mg 4-12 tablet by ity of tablet 00:00: mouth 2 [place] 00 (two) Medical times Branch daily. SERTraline 2021-0 Yes [id number] 200mg Take 2 Univers 100 mg 4-12 tablets by ity of tablet 00:00: mouth [place] 00 daily. Medical Branch buPROPion 2021-0 Yes [id number] 150mg Take 1 U nivers XL 4-12 tablet by ity of (WELLBUTRIN 00:00: mouth [place] XL) 150 mg 00 daily. Medical 24 hr Branch tablet busPIRone 2021-0 Yes [id number] 30mg Take 1 Un matt 30 mg 4-12 tablet by ity of tablet 00:00: mouth 2 [place] 00 (two) Medical times Branch daily. SERTraline 2021-0 Yes [id number] 200mg Take 2 Univers 100 mg 4-12 tablets by ity of tablet 00:00: mouth [place] 00 daily. Medical Branch buPROPion 2021-0 Yes [id number] 150mg Take 1 U nivers XL 4-12 tablet by ity of (WELLBUTRIN 00:00: mouth [place] XL) 150 mg 00 daily. Medical 24 hr Branch tablet busPIRone 2021-0 Yes [id number] 30mg Take 1 Un matt 30 mg 4-12 tablet by ity of tablet 00:00: mouth 2 [place] 00 (two) Medical times Branch daily. SERTraline 2021-0 Yes [id number] 200mg Take 2 Univers 100 mg 4-12 tablets by ity of tablet 00:00: mouth [place] 00 daily. Medical Branch buPROPion 2021-0 Yes [id number] 150mg Take 1 U nivers XL 4-12 tablet by ity of (WELLBUTRIN 00:00: mouth [place] XL) 150 mg 00 daily. Medical 24 hr Branch tablet busPIRone 2021-0 Yes [id number] 30mg Take 1 Un matt 30 mg 4-12 tablet by ity of tablet 00:00: mouth 2 [place] 00 (two) Medical times Branch daily. SERTraline 2021-0 Yes [id number] 200mg Take 2 Univers 100 mg 4-12 tablets by ity of tablet 00:00: mouth [place] 00 daily. Medical Branch buPROPion 2021-0 Yes [id number] 150mg Take 1 U nivers XL 4-12 tablet by ity of (WELLBUTRIN 00:00: mouth [place] XL) 150 mg 00 daily. Medical 24 hr Branch tablet busPIRone 2021-0 Yes [id number] 30mg Take 1 Un matt 30 mg 4-12 tablet by ity of tablet 00:00: mouth 2 00 (two) Medical times Branch daily. SERTraline 2021-0 Yes [id number] 200mg Take 2 Univers 100 mg 4-12 tablets by ity of tablet 00:00: mouth [place] 00 daily. Medical Branch buPROPion 2021-0 Yes [id number] 150mg Take 1 U nivers XL 4-12 tablet by ity of (WELLBUTRIN 00:00: mouth [place] XL) 150 mg 00 daily. Medical 24 hr Branch tablet busPIRone 2021-0 Yes [id number] 30mg Take 1 Un matt 30 mg 4-12 tablet by ity of tablet 00:00: mouth 2 (two) Medical times Branch daily. SERTraline 2021-0 Yes [id number] 200mg Take 2 Univers 100 mg 4-12 tablets by ity of tablet 00:00: mouth [place] 00 daily. Medical Branch buPROPion 2021-0 Yes [id number] 150mg Take 1 U nivers XL 4-12 tablet by ity of (WELLBUTRIN 00:00: mouth [place] XL) 150 mg 00 daily. Medical 24 hr Branch tablet busPIRone 2021-0 Yes [id number] 30mg Take 1 Un matt 30 mg 4-12 tablet by ity of tablet 00:00: mouth 2 (two) Medical times Branch daily. SERTraline 2021-0 Yes [id number] 200mg Take 2 Univers 100 mg 4-12 tablets by ity of tablet 00:00: mouth [place] 00 daily. Medical Branch buPROPion 2021-0 Yes [id number] 150mg Take 1 U nivers XL 4-12 tablet by ity of (WELLBUTRIN 00:00: mouth [place] XL) 150 mg 00 daily. Medical 24 hr Branch tablet busPIRone 2021-0 Yes [id number] 30mg Take 1 Un matt 30 mg 4-12 tablet by ity of tablet 00:00: mouth 2 (two) Medical times Branch daily. SERTraline 2021-0 Yes [id number] 200mg Take 2 Univers 100 mg 4-12 tablets by ity of tablet 00:00: mouth [place] 00 daily. Medical Branch buPROPion 2021-0 Yes [id number] 150mg Take 1 U nivers XL 4-12 tablet by ity of (WELLBUTRIN 00:00: mouth [place] XL) 150 mg 00 daily. Medical 24 hr Branch tablet busPIRone 2021-0 Yes [id number] 30mg Take 1 Un matt 30 mg 4-12 tablet by ity of tablet 00:00: mouth 2 [place] 00 (two) Medical times Branch daily. SERTraline 2021-0 Yes [id number] 200mg Take 2 Univers 100 mg 4-12 tablets by ity of tablet 00:00: mouth [place] 00 daily. Medical Branch buPROPion 2021-0 Yes [id number] 150mg Take 1 U nivers XL 4-12 tablet by ity of (WELLBUTRIN 00:00: mouth [place] XL) 150 mg 00 daily. Medical 24 hr Branch tablet busPIRone 2021-0 Yes [id number] 30mg Take 1 Un matt 30 mg 4-12 tablet by ity of tablet 00:00: mouth 2 [place] 00 (two) Medical times Branch daily. SERTraline 2021-0 Yes [id number] 200mg Take 2 Univers 100 mg 4-12 tablets by ity of tablet 00:00: mouth [place] 00 daily. Medical Branch buPROPion 2021-0 Yes [id number] 150mg Take 1 U nivers XL 4-12 tablet by ity of (WELLBUTRIN 00:00: mouth [place] XL) 150 mg 00 daily. Medical 24 hr Branch tablet busPIRone 2021-0 Yes [id number] 30mg Take 1 Un matt 30 mg 4-12 tablet by ity of tablet 00:00: mouth 2 [place] 00 (two) Medical times Branch daily. SERTraline 2021-0 Yes [id number] 200mg Take 2 Univers 100 mg 4-12 tablets by ity of tablet 00:00: mouth [place] 00 daily. Medical Branch buPROPion 2021-0 Yes [id number] 150mg Take 1 U nivers XL 4-12 tablet by ity of (WELLBUTRIN 00:00: mouth [place] XL) 150 mg 00 daily. Medical 24 hr Branch tablet busPIRone 2021-0 Yes [id number] 30mg Take 1 Un matt 30 mg 4-12 tablet by ity of tablet 00:00: mouth 2 [place] 00 (two) Medical times Branch daily. SERTraline 2021-0 Yes [id number] 200mg Take 2 Univers 100 mg 4-12 tablets by ity of tablet 00:00: mouth [place] 00 daily. Medical Branch buPROPion 0 Yes [id number] 150mg Take 1 U nivers XL 4-12 tablet by ity of (WELLBUTRIN 00:00: mouth [place] XL) 150 mg 00 daily. Medical 24 hr Branch tablet busPIRone 2021-0 Yes [id number] 30mg Take 1 Un matt 30 mg 4-12 tablet by ity of tablet 00:00: mouth 2 [place] 00 (two) Medical times Branch daily. SERTraline 0 Yes [id number] 200mg Take 2 Univers 100 mg 4-12 tablets by ity of tablet 00:00: mouth [place] 00 daily. Medical Branch buPROPion 0 Yes [id number] 150mg Take 1 U nivers XL 4-12 tablet by ity of (WELLBUTRIN 00:00: mouth [place] XL) 150 mg 00 daily. Medical 24 hr Branch tablet busPIRone 2021-0 Yes [id number] 30mg Take 1 Un matt 30 mg 4-12 tablet by ity of tablet 00:00: mouth 2 [place] 00 (two) Medical times Branch daily. SERTraline 2021-0 Yes [id number] 200mg Take 2 Univers 100 mg 4-12 tablets by ity of tablet 00:00: mouth [place] 00 daily. Medical Branch buPROPion 0 Yes [id number] 150mg Take 1 U nivers XL 4-12 tablet by ity of (WELLBUTRIN 00:00: mouth [place] XL) 150 mg 00 daily. Medical 24 hr Branch tablet busPIRone 2021-0 Yes [id number] 30mg Take 1 Un matt 30 mg 4-12 tablet by ity of tablet 00:00: mouth 2 [place] 00 (two) Medical times Branch daily. SERTraline 2021-0 Yes [id number] 200mg Take 2 Univers 100 mg 4-12 tablets by ity of tablet 00:00: mouth [place] 00 daily. Medical Branch buPROPion 2021-0 Yes [id number] 150mg Take 1 U nivers XL 4-12 tablet by ity of (WELLBUTRIN 00:00: mouth [place] XL) 150 mg 00 daily. Medical 24 hr Branch tablet busPIRone 2021-0 Yes [id number] 30mg Take 1 Un matt 30 mg 4-12 tablet by ity of tablet 00:00: mouth 2 [place] 00 (two) Medical times Branch daily. SERTraline 2021-0 Yes [id number] 200mg Take 2 Univers 100 mg 4-12 tablets by ity of tablet 00:00: mouth [place] 00 daily. Medical Branch raltegravir 2021-0 Yes [id number] 400mg Take 1 Univers (ISENTRESS) 3-28 tablet by ity of 400 mg 00:00: mouth 2 [place] tablet 00 (two) Medical times Branch daily. raltegravir 2021-0 Yes [id number] 400mg Take 1 Univers (ISENTRESS) 3-28 tablet by ity of 400 mg 00:00: mouth 2 [place] tablet 00 (two) Medical times Branch daily. raltegravir 2021-0 Yes [id number] 400mg Take 1 Univers (ISENTRESS) 3-28 tablet by ity of 400 mg 00:00: mouth 2 [place] tablet 00 (two) Medical times Branch daily. raltegravir 2021-0 Yes [id number] 400mg Take 1 Univers (ISENTRESS) 3-28 tablet by ity of 400 mg 00:00: mouth 2 [place] tablet 00 (two) Medical times Branch daily. raltegravir 2021-0 Yes [id number] 400mg Take 1 Univers (ISENTRESS) 3-28 tablet by ity of 400 mg 00:00: mouth 2 [place] tablet 00 (two) Medical times Branch daily. raltegravir 2021-0 Yes [id number] 400mg Take 1 Univers (ISENTRESS) 3-28 tablet by ity of 400 mg 00:00: mouth 2 [place] tablet 00 (two) Medical times Branch daily. raltegravir 2021-0 Yes [id number] 400mg Take 1 Univers (ISENTRESS) 3-28 tablet by ity of 400 mg 00:00: mouth 2 [place] tablet 00 (two) Medical times Branch daily. raltegravir 2021-0 Yes [id number] 400mg Take 1 Univers (ISENTRESS) 3-28 tablet by ity of 400 mg 00:00: mouth 2 [place] tablet 00 (two) Medical times Branch daily. raltegravir 2022-0 Yes [id number] 400mg Take 1 Univers (ISENTRESS) 3-28 tablet by ity of 400 mg 00:00: mouth 2 [place] tablet 00 (two) Medical times Branch daily. raltegravir 2022-0 Yes [id number] 400mg Take 1 Univers (ISENTRESS) 3-28 tablet by ity of 400 mg 00:00: mouth 2 [place] tablet 00 (two) Medical times Branch daily. raltegravir 2022-0 Yes [id number] 400mg Take 1 Univers (ISENTRESS) 3-28 tablet by ity of 400 mg 00:00: mouth 2 [place] tablet 00 (two) Medical times Branch daily. raltegravir 2022-0 Yes [id number] 400mg Take 1 Univers (ISENTRESS) 3-28 tablet by ity of 400 mg 00:00: mouth 2 [place] tablet 00 (two) Medical times Branch daily. raltegravir 2-0 Yes [id number] 400mg Take 1 Univers (ISENTRESS) 3-28 tablet by ity of 400 mg 00:00: mouth 2 [place] tablet 00 (two) Medical times Branch daily. raltegravir 2-0 Yes [id number] 400mg Take 1 Univers (ISENTRESS) 3-28 tablet by ity of 400 mg 00:00: mouth 2 [place] tablet 00 (two) Medical times Branch daily. raltegravir 2022-0 Yes [id number] 400mg Take 1 Univers (ISENTRESS) 3-28 tablet by ity of 400 mg 00:00: mouth 2 [place] tablet 00 (two) Medical times Branch daily. raltegravir 2022-0 Yes [id number] 400mg Take 1 Univers (ISENTRESS) 3-28 tablet by ity of 400 mg 00:00: mouth 2 [place] tablet 00 (two) Medical times Branch daily. raltegravir 2022-0 Yes [id number] 400mg Take 1 Univers (ISENTRESS) 3-28 tablet by ity of 400 mg 00:00: mouth 2 [place] tablet 00 (two) Medical times Branch daily. raltegravir 2022-0 Yes [id number] 400mg Take 1 [facility] (ISENTRESS) 3-28 tablet by ity of 400 mg 00:00: mouth 2 [place] tablet 00 (two) Medical times Branch daily. raltegravir Yes [id number] 400mg Take 1 [facility] (ISENTRESS) 3-28 tablet by ity of 400 mg 00:00: mouth 2 [place] tablet 00 (two) Medical times Branch daily. raltegravir Yes [id number] 400mg Take 1 [facility] (ISENTRESS) 3-28 tablet by ity of 400 mg 00:00: mouth 2 [place] tablet 00 (two) Medical times Branch daily. raltegravir 2022- No [id number] 400mg Take 1 [facility] (ISENTRESS) 3-28 05-08 tablet by it y of 400 mg 00:00: 00:00 mouth 2 [place] tablet 00 :00 (two) Medical times Branch daily. LORazepam 1 2021- No [id number] 1mg Take 1 [facility] mg tablet 3-10 [...] times a tablet day. emtricitabi 2021- No [id number] Take one [facility] ne-tenofovi 1-20 09-12 po daily ity of r alafen 00:00: 00:00 [place] (DESCOVY) 00 :00 Medical tablet Branch metoprolol Yes [id number] Take 1 [facility] tartrate 7-26 tablet [facility] (Lopressor) 00:00: (100 mg 100 MG 00 total) by tablet mouth 2 (two) times a day AND 0.5 tablets (50 mg total) every night. metoprolol Yes [id number] Take 1 [facility] tartrate 7-26 tablet [facility] [...] (affected area in groin) hydrALAZINE Yes 50mg Q.41624862 Take 50 mg [facility] (APRESOLINE 7-19 [id number] by mouth 3 st ) 50 MG [...] area in groin) hydrALAZINE 0 Yes 50mg Q.05333801 Take 50 mg [facility] (APRESOLINE 7-19 [id number] [facility] mouth 3 st ) 50 MG [...] area in groin) hydrALAZINE 0 Yes 50mg Q.33946626 Take 50 mg [facility] (APRESOLINE 7-19 [id number] by mouth 3 st ) 50 MG [...] (affected area in groin) hydrALAZINE Yes 50mg Q.41193787 Take 50 mg [facility] (APRESOLINE 7-19 3921543682 by mouth 3 st ) 50 MG [...] area in groin) hydrALAZINE 0 Yes 50mg Q.62453816 Take 50 mg [facility] (APRESOLINE 7-19 6042314099 by mouth 3 st ) 50 MG [...] area in groin) hydrALAZINE 0 Yes 50mg Q.58063905 Take 50 mg [facility] (APRESOLINE 7-19 2749029165 [address] mouth 3 [facility] ) 50 MG [...] (affected area in groin) hydrALAZINE Yes 50mg Q.18630532 Take 50 mg [facility] (APRESOLINE 7-19 3607672754 by mouth 3 st ) 50 MG [...] (affected area in groin) hydrALAZINE Yes 50mg Q.31729468 Take 50 mg [facility] (APRESOLINE 7-19 [address]6513[address]48 [address] mouth 3 st ) 50 MG [...] area in groin) hydrALAZINE 0 Yes 50mg Q.36441963 Take 50 mg [facility] (APRESOLINE 7-19 2060524647 [address] mouth 3 [facility] ) 50 MG [...] (affected area in groin) hydrALAZINE Yes 50mg Q.44343188 Take 50 mg [facility] (APRESOLINE 7-19 [id number] [address] mouth 3 [address] ) 50 MG [...] (affected area in groin) hydrALAZINE Yes 50mg Q.94530120 Take 50 mg [facility] (APRESOLINE 7-19 [id number] [address] mouth 3 st ) 50 MG [...] area in groin) hydrALAZINE 2020-0 Yes 50mg Q.27607416 Take 50 mg [facility] (APRESOLINE 7-19 2565023397 by mouth 3 st ) 50 MG [...] area in groin) hydrALAZINE 0 Yes 50mg Q.20735092 Take 50 mg [facility] (APRESOLINE 7-19 16895[address] mouth 3 st ) 50 MG [...] (affected area in groin) hydrALAZINE Yes 50mg Q.06989996 Take 50 mg [facility] (APRESOLINE 7-19 [address]1220[address]23 [address] mouth 3 st ) 50 MG [...] area in groin) hydrALAZINE 0 Yes 50mg Q.65949228 Take 50 mg [facility] (APRESOLINE -19 [id number] by mouth 3 [facility] ) 50 MG [...] area in groin) hydrALAZINE 0 Yes 50mg Q.97841556 Take 50 mg [facility] (APRESOLINE 7-19 [address] mouth 3 [address] ) 50 MG [...] (affected area in groin) hydrALAZINE Yes 50mg Q.51780562 Take 50 mg [facility] (APRESOLINE 7-[id number] mouth 3 [address] ) 50 MG [...] area in groin) hydrALAZINE 0 Yes 50mg Q.12830879 Take 50 mg [facility] (APRESOLINE 7-19 [id number] [address] mouth 3 [facility] ) 50 MG [...] area in groin) hydrALAZINE 0 Yes 50mg Q.86856547 Take 50 mg [facility] (APRESOLINE 7-19 [id number] mouth 3 [address] ) 50 MG [...] (affected area in groin) hydrALAZINE Yes 50mg Q.27510701 Take 50 mg [facility] (APRESOLINE 7-[address] mouth 3 [address] ) 50 MG [...] (affected area in groin) hydrALAZINE Yes 50mg Q.11258166 Take 50 mg [facility] (APRESOLINE 7-19 [address]33625176 [address] mouth 3 [address] ) 50 MG [...] area in groin) hydrALAZINE 0 Yes 50mg Q.24716835 Take 50 mg [facility] (APRESOLINE 7-[address]190[address] mouth 3 [address] ) 50 MG [...] area in groin) hydrALAZINE 0 Yes 50mg Q.31020482 Take 50 mg [facility] (APRESOLINE 7-19 [id number] mouth 3 [address] ) 50 MG [...] (affected area in groin) hydrALAZINE Yes 50mg Q.71884336 Take 50 mg [facility] (APRESOLINE 7-[address]25[address] mouth 3 [address] ) 50 MG [...] (affected area in groin) hydrALAZINE Yes 50mg Q.11180144 Take 50 mg [facility] (APRESOLINE 7-19 [id number] [address] mouth 3 [address] ) 50 MG [...] area in groin) hydrALAZINE 0 Yes 50mg Q.43431173 Take 50 mg [facility] (APRESOLINE 7-[id number] mouth 3 [address] ) 50 MG [...] (affected area in groin) hydrALAZINE Yes 50mg Q.59837171 Take 50 mg [facility] (APRESOLINE 7-19 [address] mouth 3 [address] ) 50 MG [...] area in groin) hydrALAZINE 0 Yes 50mg Q.00015545 Take 50 mg [facility] (APRESOLINE 7-19 [address]800[address] mouth 3 [address] ) 50 MG [...] area in groin) hydrALAZINE 0 Yes 50mg Q.93569532 Take 50 mg [facility] (APRESOLINE 7-[address] mouth 3 [address] ) 50 MG [...] (affected area in groin) hydrALAZINE Yes 50mg Q.61594570 Take 50 mg [facility] (APRESOLINE 7-[address] mouth 3 [address] ) 50 MG [...] (affected area in groin) hydrALAZINE Yes 50mg Q.51479618 Take 50 mg [facility] (APRESOLINE 7-[address] mouth 3 [address] ) 50 MG [...] (affected area in groin) hydrALAZINE Yes 50mg Q.73104632 Take 50 mg [facility] (APRESOLINE 7-[address] mouth 3 [address] ) 50 MG [...] (affected area in groin) hydrALAZINE Yes 50mg Q.67145841 Take 50 mg [facility] (APRESOLINE 7-[address] mouth [address] ) 50 MG [...] (affected area in groin) hydrALAZINE Yes 50mg Q.58634477 Take 50 mg [facility] (APRESOLINE 7-[address] mouth [address] ) 50 MG [...] area in groin) hydrALAZINE 0 Yes 50mg Q.33836046 Take 50 mg [facility] (APRESOLINE 7-[address] mouth [address] ) 50 MG [...] area in groin) hydrALAZINE 0 Yes 50mg Q.69078359 Take 50 mg [facility] (APRESOLINE 7-[address] mouth 3 [address] ) 50 MG [...] (affected area in groin) hydrALAZINE Yes 50mg Q.63530564 Take 50 mg [facility] (APRESOLINE 7-[address]25[address] mouth 3 [address] ) 50 MG [...] area in groin) hydrALAZINE 0 Yes 50mg Q.24797768 Take 50 mg [facility] (APRESOLINE 7-[address] mouth 3 [address] ) 50 MG [...] area in groin) hydrALAZINE 0 Yes 50mg Q.15895192 Take 50 mg [facility] (APRESOLINE 7-[address] mouth 3 [address] ) 50 MG [...] area in groin) hydrALAZINE 0 Yes 50mg Q.81427339 Take 50 mg [facility] (APRESOLINE 7-[address] mouth 3 [address] ) 50 MG [...] (affected area in groin) hydrALAZINE Yes 50mg Q.93057826 Take 50 mg [facility] (APRESOLINE 7-[address] mouth 3 [address] ) 50 MG [...] area in groin) hydrALAZINE 0 Yes 50mg Q.88233939 Take 50 mg [facility] (APRESOLINE 7-[address] mouth 3 [address] ) 50 MG [...] area in groin) hydrALAZINE 0 Yes 50mg Q.17680781 Take 50 mg [facility] (APRESOLINE 7-[id number] mouth 3 [address] ) 50 MG [...] (affected area in groin) hydrALAZINE Yes 50mg Q.80861912 Take 50 mg [facility] (APRESOLINE 7-[address] mouth 3 [address] ) 50 MG [...] area in groin) hydrALAZINE 0 Yes 50mg Q.90907146 Take 50 mg [facility] (APRESOLINE 7-[id number] mouth 3 [address] ) 50 MG [...] area in groin) hydrALAZINE 0 Yes 50mg Q.72620523 Take 50 mg [facility] (APRESOLINE 7-[address] mouth [address] ) 50 MG [...] (affected area in groin) hydrALAZINE Yes 50mg Q.[id number] Take 50 mg [facility] (APRESOLINE 7-[address] mouth 3 [address] ) 50 MG [...] area in groin) hydrALAZINE 0 Yes 50mg Q.65239154 Take 50 mg [facility] (APRESOLINE 7-19 [address]1339[address] mouth 3 st ) 50 MG [...] area in groin) hydrALAZINE 0 Yes 50mg Q.[id number] Take 50 mg [facility] (APRESOLINE 7-[address] mouth [address] ) 50 MG [...] [facility] tablet 25 l nystatin-tr 2021-0 Yes [id number] Apply to [facility] iamcinolone 7-06 area(s) 3 ity of cream 00:00: (three) [place] 00 times Medical daily. Branch nystatin-tr 2021-0 Yes [id number] Apply to [facility] iamcinolone 7-06 area(s) 3 ity of cream 00:00: (three) [place] 00 times Medical daily. Branch nystatin-tr 2021-0 Yes [id number] Apply to [facility] iamcinolone 7-06 area(s) 3 ity of cream 00:00: (three) [place] 00 times Medical daily. Branch nystatin-tr 2021-0 Yes [id number] Apply to [facility] iamcinolone 7-06 area(s) 3 ity of cream 00:00: (three) [place] 00 times Medical daily. Branch nystatin-tr 2021-0 Yes [id number] Apply to [facility] iamcinolone 7-06 area(s) 3 ity of cream 00:00: (three) [place] 00 times Medical daily. Branch nystatin-tr 2021-0 Yes [id number] Apply to [facility] iamcinolone 7-06 area(s) 3 ity of cream 00:00: (three) [place] 00 times Medical daily. Branch nystatin-tr 2021-0 Yes [id number] Apply to [facility] iamcinolone 7-06 area(s) 3 ity of cream 00:00: (three) [place] 00 times Medical daily. Branch nystatin-tr 2021-0 Yes [id number] Apply to [facility] iamcinolone 7-06 area(s) 3 ity of cream 00:00: (three) [place] 00 times Medical daily. Branch nystatin-tr 2021-0 Yes [id number] Apply to [facility] iamcinolone 7-06 area(s) 3 ity of cream 00:00: (three) [place] 00 times Medical daily. Branch nystatin-tr 2021-0 Yes [id number] Apply to [facility] iamcinolone 7-06 area(s) 3 ity of cream 00:00: (three) [place] 00 times Medical daily. Branch nystatin-tr 2021-0 Yes [id number] Apply to [facility] iamcinolone 7-06 area(s) 3 ity of cream 00:00: (three) [place] 00 times Medical daily. Branch nystatin-tr 2021-0 Yes [id number] Apply to [facility] iamcinolone 7-06 area(s) 3 ity of cream 00:00: (three) [place] 00 times Medical daily. Branch nystatin-tr 2021-0 Yes [id number] Apply to [facility] iamcinolone 7-06 area(s) 3 ity of cream 00:00: (three) [place] 00 times Medical daily. Branch nystatin-tr 2021-0 Yes [id number] Apply to [facility] iamcinolone 7-06 area(s) 3 ity of cream 00:00: (three) [place] 00 times Medical daily. Branch nystatin-tr 2021-0 Yes [id number] Apply to [facility] iamcinolone 7-06 area(s) 3 ity of cream 00:00: (three) [place] 00 times Medical daily. Branch nystatin-tr 2021-0 Yes [id number] Apply to [facility] iamcinolone 7-06 area(s) 3 ity of cream 00:00: (three) [place] 00 times Medical daily. Branch nystatin-tr 2021-0 Yes [id number] Apply to [facility] iamcinolone 7-06 area(s) 3 ity of cream 00:00: (three) [place] 00 times Medical daily. Branch nystatin-tr 2021-0 Yes [id number] Apply to [facility] iamcinolone 7-06 area(s) 3 ity of cream 00:00: (three) [place] 00 times Medical daily. Branch nystatin-tr 2021-0 Yes [id number] Apply to [facility] iamcinolone 7-06 area(s) 3 ity of cream 00:00: (three) [place] 00 times Medical daily. Branch nystatin-tr 2021-0 Yes [id number] Apply to [facility] iamcinolone 7-06 area(s) 3 ity of cream 00:00: (three) [place] 00 times Medical daily. Branch nystatin-tr 2021-0 Yes [id number] Apply to [facility] iamcinolone 7-06 area(s) 3 ity of cream 00:00: (three) [place] 00 times Medical daily. Branch budesonide- 2020-0 202- No 1{puff} QD Inhale 1 [facility] formoteroL 6-25 06-[address] (SYMBICORT) 14:37: 00:00 morning. H ospita 160-4.5 02 :00 l mcg/actuati on inhaler hydrALAZINE 2020-0 Yes [id number] 50mg Q.[id number] Take 1 [facility] (Apresoline 6-11 [id number] tablet (50 Health ) 50 MG 00:00: 3D mg total) tablet 00 by mouth 3 (three) times a day. hydrALAZINE 0 Yes [id number] 50mg Q.[id number] Take 1 [facility] (Apresoline 6-11 [id number] tablet (50 Health ) 50 MG 00:00: [...] Health 2 % 00:00: ointment 00 nystatin 2021-0 2021- No [id number] Q.25D Take 5 mL [facility] (MYCOSTATIN 17 [...] as: l 14:00: Norvasc) emtricitabi No Notes: Acesar lisa ne 200 MG / 4-10 (Same [...] ia 4-10 (Same as: l 14:00: Zoloft) [place] 00 pantoprazol No Notes: Caesar lisa e 4-10 Tablet l 14:00: should not Marty 00 be chewed or crushed. (Same as: Protonix) Amiodarone No Notes: Memor ia 4-10 (Same as: l 14:00: Cordarone) [place] 00 Amlodipine No Notes: [facility] ia 4-10 (Same as: l 14:00: Norvasc) [place] 00 emtricitabi No Notes: Caesar lisa ne [...] ia 4-10 (Same as: l 14:00: Norvasc) [place] 00 emtricitabi No Notes: Caesar lisa ne 200 MG / 4-10 (Same as: l tenofovir 14:00: Descovy) Herm ariel alafenamide 00 Non-formul 25 MG Oral nancy Tablet [Descovy] Sertraline No Notes: [facility] ia 4-10 (Same as: l 14:00: Zoloft) [place] 00 pantoprazol No Notes: Caesar lisa e 4-10 Tablet l 14:00: should not Marty 00 be chewed or crushed. (Same as: Protonix) Amiodarone No Notes: [facility] ia 4-10 (Same as: l 14:00: Cordarone) [place] Amlodipine No Notes: [facility] ia 4-10 (Same [...] e 4-10 Tablet l 14:00: should not [place] 00 be chewed or crushed. (Same as: Protonix) Amiodarone No Notes: Mem[facility] ia 4-10 (Same as: l 14:00: Cordarone) [place] Amlodipine No Notes: [facility] ia 4-10 (Same as: l 14:00: Norvasc) [place] 00 emtricitabi No Notes: Caesar lisa ne 200 MG / 4-10 (Same as: l tenofovir 14:00: Descovy) Herm ariel alafenamide 00 Non-formul 25 MG Oral nancy Tablet [Descovy] Sertraline No Notes: [facility] ia 4-10 (Same as: l 14:00: Zoloft) pantoprazol No Notes: [place] lisa e 4-10 Tablet l 14:00: should not [place] 00 be chewed or crushed. (Same as: Protonix) Amiodarone No Notes: [facility] ia 4-10 (Same as: l 14:00: Cordarone) [place] 00 Sucralfate No Notes: Susan Corbin emoria [...] 0.9% 4-10 (Same as: l 02:00: BD [place] Posiflush) Eliquis No Notes: [facility] 4-10 Same as: l 02:00: Eliquis [place] 00 Hydralazine No Notes: Caesar lisa Hydrochlori 4-10 (Same as: l de 50 MG 02:00: Apresoline Her mitchell Oral Tablet 00 ) May interfere w/enteral feedings Take With Food Sucralfate No Notes: May M emoria 4-10 interfere l 02:00: w/enteral [place] 00 feeds - Take 1 hr before or 2 hr after antacids, dairy pdt, meals & minerals - On empty stomach. For patients unable to swallow tablet, dissolve in 10mL - 30mL of water or juice and stir before giving. (Same As: Carafate) Saline No Notes: [facility] Flush 0.9% 4-10 (Same as: l 02:00: BD [place] 00 Posiflush) Eliquis No Notes: [facility] 4-10 Same as: l 02:00: Eliquis [place] Hydralazine No Notes: Caesar lisa Hydrochlori 4-10 (Same as: l de 50 MG 02:00: Apresoline Her mitchell Oral Tablet 00 ) May interfere w/enteral feedings Take With Food Sucralfate No Notes: May M emoria 4-10 interfere l 02:00: w/enteral [place] 00 feeds - Take 1 hr before or 2 hr after antacids, dairy pdt, meals & minerals - On empty stomach. For patients unable to swallow tablet, dissolve in 10mL - 30mL of water or juice and stir before giving. (Same As: Carafate) Saline No Notes: [facility] Flush 0.9% 4-10 (Same as: l 02:00: BD [place] 00 Posiflush) Eliquis No Notes: [facility] 4-10 Same as: l 02:00: Eliquis [place] Hydralazine No Notes: Caesar lisa Hydrochlori 4-10 (Same as: l de 50 MG 02:00: Apresoline Her mitchell Oral Tablet 00 ) May interfere w/enteral feedings Take With Food Sucralfate No Notes: May M emoria 4-10 interfere l 02:00: w/enteral [place] 00 feeds - Take 1 hr before [...] [facility] 4-10 Same as: l 02:00: Eliquis [place] Hydralazine No Notes: Caesar lisa Hydrochlori 4-10 (Same as: l de 50 MG 02:00: Apresoline Her mitchell Oral Tablet 00 ) May interfere w/enteral feedings Take With Food Sucralfate No Notes: May M emoria 4-10 interfere l 02:00: w/enteral [place] 00 feeds - Take 1 hr before [...] not exceed l #3 00:12: 4gm/day of [place] acetaminop hen. (Same as: Tylenol with Codeine # 3) acetaminoph No Notes: Do M emoria en-codeine 4-10 not exceed l #3 00:12: 4gm/day of [place] acetaminop hen. (Same as: Tylenol with Codeine [...] not exceed l #3 00:12: 4gm/day of [place] acetaminop hen. (Same as: Tylenol with Codeine # 3) acetaminoph No Notes: Do M emoria en-codeine 4-10 not exceed l #3 00:12: 4gm/day of [place] acetaminop hen. (Same as: Tylenol with Codeine [...] Tablet 22:00: [facility]: [facility] Drug form: TAB, BID, Dosing Weight [...] 22:00: Route: [facility], [facility] Drug form: TAB, BID, Dosing Weight [...] oria 4-09 tab, l 22:00: Route: PO, [place] Drug form: TAB, BID, Dosing Weight 97.273, [...] oria 4-09 tab, l 22:00: Route: PO, [place] 00 Drug form: TAB, BID, Dosing Weight 97.273, kg, Start date: 08/29/20 17:00:00 CDT, Duration: 30 day, Stop date: 09/28/20 9:00:00 CDT metoprolol 1-0 No 100 mg, 1 Me moria tartrate 4-09 tab, l 22:00: Route: PO, [place] 00 Drug form: TAB, BID, Dosing Weight [...] tartrate 4- tab, l 22:00: Route: PO, [place] 00 Drug form: TAB, BID, Dosing Weight [...] Notes: [facility] 4-09 (Same l 17:07: as:MORPhin [place] 00 e Sulfate) Morphine No Notes: [facility] 4-09 (Same l 17:07: as:MORPhin [place] 00 e Sulfate) Morphine No Notes: [facility] 4-09 (Same l 17:07: as:MORPhin [place] 00 e Sulfate) Morphine No Notes: [facility] 4-09 (Same l 17:07: as:MORPhin [place] 00 e Sulfate) Morphine No Notes: [facility] 4-09 (Same l 17:07: as:MORPhin [place] 00 e Sulfate) Morphine No Notes: [facility] 4-09 (Same l 17:07: as:MORPhin [place] 00 e Sulfate) Morphine 2020-0 No Notes: [facility] 08-29 (Same l 17:07: as:MORPhin [place] 00 e Sulfate) buPROPion 1-0 No 150 [...] 30 tab, 0 coated Refill(s), tablet Pharmacy: [facility], 162.56, cm, 08/29/20 5:30:00 CDT, Height, 97.273, kg, 08/29/20 5:30:00 CDT, Weight pantoprazol 2020-0 Yes 40 mg = 1 M emoria e 40 mg 4-09 tab, PO, l oral 15:27: Daily, # [place] enteric 00 30 tab, 0 coated Refill(s), tablet Pharmacy: [facility] 149, 162.56, cm, 08/29/20 5:30:00 CDT, Height, 97.273, kg, 08/29/20 5:30:00 CDT, Weight pantoprazol 2021-0 Yes 40 mg = 1 M emoria e 40 mg 4-09 tab, PO, l oral 15:27: Daily, # [place] enteric 00 30 tab, 0 coated Refill(s), tablet Pharmacy: [facility] 149, 162.56, cm, 08/29/20 5:30:00 CDT, Height, 97.273, kg, 08/29/20 5:30:00 CDT, Weight pantoprazol 2021-0 Yes 40 mg = 1 M emoria e 40 mg 4-09 tab, PO, l oral 15:27: Daily, # [place] enteric 00 30 tab, 0 coated Refill(s), tablet Pharmacy: [facility] 149, 162.56, cm, 08/29/20 5:30:00 CDT, Height, 97.273, kg, 08/29/20 5:30:00 CDT, Weight pantoprazol 2020-0 Yes 40 mg = 1 M emoria e 40 mg 4-09 tab, PO, l oral 15:27: Daily, # [place] enteric 00 30 tab, 0 coated Refill(s), tablet Pharmacy: [facility] 149, 162.56, cm, 08/29/20 5:30:00 CDT, Height, 97.273, kg, 08/29/20 5:30:00 CDT, Weight pantoprazol 2020-0 Yes 40 mg = 1 M emoria e 40 mg 4-09 tab, PO, l oral 15:27: Daily, # [place] enteric 00 30 tab, 0 coated Refill(s), tablet Pharmacy: [facility] 149, 162.56, cm, 08/29/20 5:30:00 CDT, Height, 97.273, kg, 08/29/20 5:30:00 CDT, Weight pantoprazol 2020-0 Yes 40 mg = 1 M emoria e 40 mg 4-09 tab, PO, l oral 15:27: Daily, # [place] enteric 00 30 tab, 0 coated Refill(s), tablet Pharmacy: [place] [address], 162.56, cm, 08/29/20 5:30:00 CDT, Height, 97.273, [...] Skylar nn 00 tab, 0 Refill(s), Pharmacy: [facility] 149, 162.56, cm, 08/29/20 5:30:00 [...] Skylar nn 00 tab, 0 Refill(s), Pharmacy: [facility] 149, 162.56, cm, 08/29/20 5:30:00 CDT, Height, 97.273, kg, 08/29/20 5:30:00 CDT, Weight pantoprazol 2020-0 No 40 mg = 1 M emoria e 40 mg 4-09 tab, PO, l oral 15:26: Daily, # [place] enteric 00 30 tab, 0 coated Refill(s) tablet sucralfate 2020-0 Yes 1 gm = 1 Mem oria 1 g oral 4-09 tab, PO, l tablet 15:26: Q12H, # 28 Skylar nn 00 tab, 0 Refill(s), Pharmacy: [place] [address], 162.56, cm, 08/29/20 5:30:00 CDT, Height, 97.273, kg, 08/29/20 5:30:00 CDT, Weight pantoprazol 2020-0 No 40 mg = 1 M emoria e 40 mg 4-09 tab, PO, l oral 15:26: Daily, # [place] enteric 00 30 tab, 0 coated Refill(s) tablet sucralfate 2020-0 Yes 1 gm = 1 Mem oria 1 g oral 4-09 tab, PO, l tablet 15:26: Q12H, # 28 Skylar nn 00 tab, 0 Refill(s), Pharmacy: [place] [address], 162.56, cm, 08/29/20 5:30:00 CDT, Height, 97.273, kg, 08/29/20 5:30:00 CDT, Weight pantoprazol 2020-0 No 40 mg = 1 M emoria e 40 mg 4-09 tab, PO, l oral 15:26: Daily, # [place] enteric 00 30 tab, 0 coated Refill(s) tablet sucralfate 2020-0 Yes 1 gm = 1 Mem oria 1 g oral 4-09 tab, PO, l tablet 15:26: Q12H, # 28 Skylar nn 00 tab, 0 Refill(s), Pharmacy: [facility] 149, 162.56, cm, 08/29/20 5:30:00 CDT, Height, 97.273, kg, 08/29/20 5:30:00 CDT, Weight pantoprazol No 40 mg = 1 M emoria e 40 mg 4-09 tab, PO, l oral 15:26: Daily, # [place] enteric 00 30 tab, 0 coated Refill(s) tablet sucralfate Yes 1 gm = 1 Mem oria 1 g oral 4-09 tab, PO, l tablet 15:26: Q12H, # 28 Skylar nn 00 tab, 0 Refill(s), Pharmacy: [facility] 149, 162.56, cm, 08/29/20 5:30:00 [...] Skylar nn 00 tab, 0 Refill(s), Pharmacy: [facility] 149, 162.56, cm, 08/29/20 5:30:00 [...] a 4-09 (Same as: l 15:25: Ativan) [place] Saline No Notes: Memoria Flush 0.9% 4-09 (Same as: l 15:25: BD Marty 00 Posiflush) Saline No Notes: Memoria Flush 0.9% 4-09 (Same as: l 15:25: BD [place] 00 Posiflush) Lorazepam No Notes: Memori a 4-09 (Same as: l 15:25: Ativan) Marty 00 Lorazepam No Notes: Memori a 4-09 (Same as: l 15:25: Ativan) [place] 00 Saline No Notes: Memoria Flush 0.9% 4-09 (Same as: l 15:25: BD [place] 00 Posiflush) Lorazepam No Notes: Memori a 4-09 (Same as: l 15:25: Ativan) Saline No Notes: Memoria Flush 0.9% 4-09 (Same as: l 15:25: BD [place] 00 Posiflush) Lorazepam No Notes: Memori a 4-09 (Same as: l 15:25: Ativan) Saline No Notes: Memoria Flush 0.9% 4-09 (Same as: l 15:25: BD [place] 00 Posiflush) Lorazepam No Notes: Memori a 4-09 (Same as: l 15:25: Ativan) Isuprel HCl No Route: IV, Memoria (ANES) 0.2 08-29 Drug form: l mg + 15:00: INJ, [place] Dosing Weight 97.3, kg, Start date: 08/29/20 10:00:00 CDT, Stop date: 08/29/20 11:00:00 CDT Isuprel HCl No Route: IV, Memoria (ANES) 0.2 08-29 Drug form: l mg + 15:00: INJ, [place] Dosing Weight 97.3, kg, Start date: 08/29/20 [...] CDT heparin 2020-0 No Route: IV, Caesar ilsa (ANES) 08-29 Drug form: l 14:49: INJ, [...] 08-29 Drug form: l 14:18: INJ, ONCE, [place] 00 Stop date: 08/29/20 9:18:00 CDT Labetalol 2020-0 No 10 mg, Memori a 08-29 Route: l 14:01: IVP, Marty 00 Q5Min, Dosing Weight 97.273, kg, PRN Elevated BP, Start date: 08/29/20 9:01:00 CDT, Duration: 5 doses or times, Stop date: Limited # of times Acetaminoph 1-0 No 1,000 mg, M emoria en 08-29 Route: PO, l 14:01: Drug form: [place] 00 TAB, ONCE, Dosing Weight 97.273, kg, [...] oria ne 08-29 Route: l 14:01: IVP, [place] 00 Q5Min, Dosing Weight 97.273, kg, PRN Pain Score 7-10, Start date: 08/29/20 9:01:00 CDT, Duration: 4 doses or times, Stop date: Limited # of times Flumazenil 2020-0 No 0.2 mg, Caesar lisa 08-29 Route: l 14:01: IVP, PRN, [place] 00 Dosing Weight 97.273, kg, PRN Benzodiaze pine Reversal, Initial dose, Start date: 08/29/20 9:01:00 CDT, Duration: 30 day, Stop date: 09/28/20 9:00:00 CDT Naloxone 1-0 No 0.4 mg, Memori a 08-29 Route: l 14:01: IVP, [place] 00 Q2MIN, Dosing Weight 97.273, kg, PRN [...] oria ne 08-29 Route: l 14:01: IVP, [place] 00 Q5Min, Dosing Weight 97.273, kg, PRN [...] Memori a 08-29 Route: l 14:01: IVP, [place] 00 Q2MIN, Dosing Weight 97.273, kg, PRN [...] 08-29 Route: PO, l 14:01: Drug form: [place] 00 TAB, ONCE, Dosing Weight 97.273, kg, [...] oria ne 08-29 Route: l 14:01: IVP, [place] 00 Q5Min, Dosing Weight 97.273, kg, PRN [...] ia 08-29 Route: l 14:01: IVP, ONCE, [place] 00 Dosing Weight 97.273, kg, PRN Nausea [...] lisa 08-29 Route: l 14:01: IVP, PRN, [place] 00 Dosing Weight 97.273, kg, PRN Benzodiaze [...] lisa 08-29 Route: l 14:01: IVP, PRN, [place] 00 Dosing Weight 97.273, kg, PRN Benzodiaze pine Reversal, Initial dose, Start date: 08/29/20 9:01:00 CDT, Duration: 30 day, Stop date: 09/28/20 9:00:00 CDT Ondansetron 2021-0 No 4 mg, Memor ia 08-29 Route: l 14:01: IVP, ONCE, [place] 00 Dosing Weight 97.273, kg, PRN Nausea & Vomiting, Start date: 08/29/20 9:01:00 CDT Naloxone 2021-0 No 0.4 mg, Memori a 08-29 Route: l 14:01: IVP, [place] 00 Q2MIN, Dosing Weight 97.273, kg, PRN Narcotic Reversal, Start date: 08/29/20 9:01:00 CDT, Duration: 8 doses or times, Stop date: Limited # of times Ondansetron 2021-0 No 4 mg, Memor ia 08-29 Route: l 14:01: IVP, ONCE, [place] 00 Dosing Weight 97.273, kg, PRN Nausea [...] 08-29 Route: PO, l 14:01: Drug form: [place] 00 TAB, ONCE, Dosing Weight 97.273, kg, [...] lisa 08-29 Route: l 14:01: IVP, PRN, [place] 00 Dosing Weight 97.273, kg, PRN Benzodiaze pine Reversal, Initial dose, Start date: 08/29/20 9:01:00 CDT, Duration: 30 day, Stop date: 09/28/20 9:00:00 CDT Naloxone 2020-0 No 0.4 mg, Memori a 08-29 Route: l 14:01: IVP, [place] 00 Q2MIN, Dosing Weight 97.273, kg, PRN [...] 08-29 Drug form: l 13:42: INJ, ONCE, [place] Stop date: 08/29/20 8:42:00 CDT norepinephr 2020-0 No Route: IV, Memoria ine (ANES) 08-29 Drug form: l 10 13:15: INJ, Start [facility] microgram date: 08/29/20 8:15:00 CDT, Stop date: 08/29/20 9:15:00 CDT norepinephr 2020-0 No Route: IV, [facility] (ANES) 08-29 Drug form: l 10 13:15: INJ, Start [place] microgram date: 08/29/20 8:15:00 CDT, Stop date: 08/29/20 9:15:00 CDT norepinephr 2020-0 No Route: IV, [facility] (ANES) 08-29 Drug form: l 10 13:15: INJ, Start [facility] microgram 00 date: 08/29/20 8:15:00 CDT, Stop date: 08/29/20 9:15:00 CDT norepinephr 2020-0 No Route: IV, [facility] (ANES) 08-29 Drug form: l 10 13:15: INJ, Start [place] microgram date: 08/29/20 8:15:00 CDT, Stop date: [...] Drug form: l 10 13:15: INJ, Start [place] microgram 00 date: 08/29/20 8:15:00 CDT, Stop date: 08/29/20 9:15:00 CDT Sodium 2020-0 No Route: IV, [facility] Chloride 4-09 Total l 0.9% IV 12:30: Volume: [place] (ANES) 1000 00 1,000, mL Start date: 08/29/20 7:30:00 CDT, Stop date: 08/29/20 8:30:00 CDT Sodium 2020-0 No Route: IV, [facility] Chloride 4-09 Total l 0.9% IV 12:30: Volume: [facility] (ANES) 1000 00 1,000, mL Start date: 08/29/20 7:30:00 CDT, Stop date: 08/29/20 8:30:00 CDT Sodium 2020-0 No Route: IV, [facility] Chloride 4-09 Total l 0.9% IV 12:30: Volume: [place] (ANES) 1000 00 1,000, mL Start date: [...] 4-09 Total l 0.9% IV 12:30: Volume: [place] (ANES) 1000 00 1,000, mL Start date: 08/29/20 7:30:00 CDT, Stop date: 08/29/20 8:30:00 CDT Sodium 2020-0 No Route: IV, [facility] Chloride 4-09 Total l 0.9% IV 12:30: Volume: [place] (ANES) 1000 00 1,000, mL Start date: [...] PO, l Hydrochlori 11:42: Q24H, # 30 [place] de 150 MG 00 tab, 0 Extended [...] - Q12H, tab, l Tablet 11:41: 0 [place] [Eliquis] 00 Refill(s), For Atrial Fibrilatio n [...] tab, PO, l tablet 11:38: Daily, # [place] 00 90 tab, 3 Refill(s) AMIODarone 2020-0 [...] tab, PO, l tablet 11:38: Daily, # [place] 90 tab, 3 Refill(s) AMIODarone Yes 200 [...] Filled Immunization Date Status Comments [facility] e Immunization Name Name SARS-COV-2 COVID-19 [...] [place] [facility] PFIZER COVID-19 2020-07-23 Completed [facility] VACCINATION 00:00:00 [facility] PFIZER COVID-19 2020-07-23 Completed [facility] M[facility] VACCINATION 00:00:00 [facility] PFIZER COVID-19 2020-07-23 Completed [facility] VACCINATION 00:00:00 [facility] PFIZER COVID-19 2020-07-23 Completed [facility] VACCINATION 00:00:00 [facility] PEG COVID-19 2020-07-23 Completed [facility] VACCINATION 00:00:00 [facility] PEG COVID-19 2020-07-23 Completed [facility] VACCINATION 00:00:00 [facility] PFIZER COVID-19 2020-07-23 Completed [facility] M[facility] VACCINATION 00:00:00 [facility] PEG COVID-19 2020-07-23 Completed [facility] VACCINATION 00:00:00 [facility] PEG COVID-19 2020-07-23 Completed [facility] VACCINATION 00:00:00 [facility] PEG COVID-19 2020-07-23 Completed [facility] VACCINATION 00:00:00 [facility] PEG COVID-19 2020-07-23 Completed [facility] VACCINATION 00:00:00 [facility] PEG COVID-19 2020-07-23 Completed [facility] VACCINATION 00:00:00 [facility] PEG COVID-19 2020-07-23 Completed [facility] VACCINATION 00:00:00 [facility] PEG COVID-19 2020-07-23 Completed [facility] M[facility] VACCINATION 00:00:00 [facility] PEG COVID-19 2020-07-23 Completed [facility] VACCINATION 00:00:00 [facility] PEG COVID-19 2020-07-23 Completed [facility] VACCINATION 00:00:00 [facility] PEG COVID-19 2020-07-23 Completed [facility] VACCINATION 00:00:00 [facility] PFIZER COVID-19 2020-07-23 Completed [facility] VACCINATION 00:00:00 [facility] PEG COVID-19 2020-07-23 Completed [facility] VACCINATION 00:00:00 [facility] PFIZER COVID-19 2020-07-23 Completed [facility] VACCINATION 00:00:00 [facility] PFIZER COVID-19 2020-07-23 Completed [facility] VACCINATION 00:00:00 [facility] PFIZER COVID-19 2020-07-23 Completed [facility] VACCINATION 00:00:00 [facility] PFIZER COVID-19 2020-07-23 Completed [facility] M[facility] VACCINATION 00:00:00 [facility] PFIZER COVID-19 2020-07-23 Completed [facility] VACCINATION 00:00:00 [facility] PFIZER COVID-19 2020-07-23 Completed [facility] M[facility] VACCINATION 00:00:00 [facility] PFIZER COVID-19 2020-07-23 Completed [facility] VACCINATION 00:00:00 [facility] PFIZER COVID-19 2020-07-23 Completed [facility] VACCINATION 00:00:00 [facility] PFIZER COVID-19 2020-07-23 Completed [facility] M[facility] VACCINATION 00:00:00 [facility] PFIZER COVID-19 2020-07-23 Completed [facility] VACCINATION 00:00:00 [facility] PFIZER COVID-19 2020-07-23 Completed [facility] VACCINATION 00:00:00 [facility] PFIZER COVID-19 2020-07-23 Completed [facility] M[facility] VACCINATION 00:00:00 [facility] PFIZER COVID-19 2020-07-23 Completed [facility] M[facility] VACCINATION 00:00:00 [facility] PFIZER COVID-19 2020-07-23 Completed [facility] VACCINATION 00:00:00 [facility] PFIZER COVID-19 2020-07-23 Completed [facility] VACCINATION 00:00:00 [facility] PFIZER COVID-19 2020-07-23 Completed [facility] VACCINATION 00:00:00 [facility] PFIZER COVID-19 2020-07-23 Completed [facility] VACCINATION 00:00:00 [facility] PFIZER COVID-19 2020-07-23 Completed [facility] M[facility] VACCINATION 00:00:00 [facility] PFIZER COVID-19 2020-07-23 Completed [facility] M[facility] VACCINATION 00:00:00 [facility] PFIZER COVID-19 2020-07-23 Completed [facility] VACCINATION 00:00:00 [facility] PFIZER COVID-19 2020-07-23 Completed [facility] M[facility] VACCINATION 00:00:00 [facility] PFIZER COVID-19 2020-07-23 Completed [facility] VACCINATION 00:00:00 [facility] PFIZER COVID-19 2020-07-23 Completed [facility] VACCINATION 00:00:00 [facility] PFIZER COVID-19 2020-07-23 Completed [facility] VACCINATION 00:00:00 [facility] PFIZER COVID-19 2020-07-23 Completed [facility] VACCINATION 00:00:00 [facility] PFIZER COVID-19 2020-07-23 Completed [facility] M[facility] VACCINATION 00:00:00 [facility] PFIZER COVID-19 2020-07-23 Completed [facility] M[facility] VACCINATION 00:00:00 [facility] PFIZER COVID-19 2020-07-23 Completed [facility] VACCINATION 00:00:00 [facility] PFIZER COVID-19 2020-07-23 Completed [facility] VACCINATION 00:00:00 [facility] SARS-COV-2 COVID-19 2020-07-23 Completed [facility] PFIZER VACCINE 00:00:00 [facility] SARS-COV-2 COVID-19 2020-07-23 Completed [facility] of PFIZER VACCINE 00:00:00 [facility] SARS-COV-2 COVID-19 2020-07-23 Completed [facility]ive rsity of PFIZER VACCINE 00:00:00 [facility] SARS-COV-2 COVID-19 2020-07-23 Completed [facility] rs[facility] of PFIZER VACCINE 00:00:00 [facility] SARS-COV-2 COVID-19 2020-07-23 Completed [facility] rs[facility] of PFIZER VACCINE 00:00:00 [facility] SARS-COV-2 COVID-19 2020-07-23 Completed [facility] of PFIZER VACCINE 00:00:00 [facility] SARS-COV-2 COVID-19 2020-07-23 Completed [facility] of PFIZER VACCINE 00:00:00 [facility] SARS-COV-2 COVID-19 2020-07-23 Completed [facility] rsity of PFIZER VACCINE 00:00:00 [facility] SARS-COV-2 COVID-19 2020-07-23 Completed [facility] rs[facility] of PFIZER VACCINE 00:00:00 [facility] SARS-COV-2 COVID-19 2020-07-23 Completed [facility] of PFIZER VACCINE 00:00:00 [facility] SARS-COV-2 COVID-19 2020-07-23 Completed [facility] rs[facility] of PFIZER VACCINE 00:00:00 [facility] SARS-COV-2 COVID-19 2020-07-23 Completed [facility] rs[facility] of PFIZER VACCINE 00:00:00 [facility] SARS-COV-2 COVID-19 2020-07-23 Completed [facility] of PFIZER VACCINE 00:00:00 [facility] SARS-COV-2 COVID-19 2020-07-23 Completed [facility] rs[facility] of PFIZER VACCINE 00:00:00 [facility] SARS-COV-2 COVID-19 2020-07-23 Completed [facility] of PFIZER VACCINE 00:00:00 [facility] SARS-COV-2 COVID-19 2020-07-23 Completed [facility] of PFIZER VACCINE 00:00:00 [facility] SARS-COV-2 COVID-19 2020-07-23 Completed [facility] of PFIZER VACCINE 00:00:00 [facility] PFIZER COVID-19 2020-07-23 Completed [facility] VACCINATION 00:00:00 [facility] PFIZER COVID-19 2020-07-02 Completed [facility] VACCINATION 00:00:00 [facility] PFIZER COVID-19 2020-07-02 Completed [facility] M[facility] VACCINATION 00:00:00 [facility] PFIZER COVID-19 2020-07-02 Completed [facility] M[facility] VACCINATION 00:00:00 [facility] PFIZER COVID-19 2020-07-02 Completed [facility] VACCINATION 00:00:00 [facility] PFIZER COVID-19 2020-07-02 Completed [facility] VACCINATION 00:00:00 [facility] PFIZER COVID-19 2020-07-02 Completed [facility] M[facility] VACCINATION 00:00:00 [facility] PFIZER COVID-19 2020-07-02 Completed [facility] VACCINATION 00:00:00 [facility] PFIZER COVID-19 2020-07-02 Completed [facility] M[facility] VACCINATION 00:00:00 [facility] PFIZER COVID-19 2020-07-02 Completed [facility] VACCINATION 00:00:00 [facility] PFIZER COVID-19 2020-07-02 Completed [facility] VACCINATION 00:00:00 [facility] PFIZER COVID-19 2020-07-02 Completed [facility] VACCINATION 00:00:00 [facility] PFIZER COVID-19 2020-07-02 Completed [facility] VACCINATION 00:00:00 [facility] PFIZER COVID-19 2020-07-02 Completed [facility] VACCINATION 00:00:00 [facility] PFIZER COVID-19 2020-07-02 Completed [facility] VACCINATION 00:00:00 [facility] PFIZER COVID-19 2020-07-02 Completed [facility] VACCINATION 00:00:00 [facility] PFIZER COVID-19 2020-07-02 Completed [facility] VACCINATION 00:00:00 [facility] PFIZER COVID-19 2020-07-02 Completed [facility] VACCINATION 00:00:00 [facility] PFIZER COVID-19 2020-07-02 Completed [facility] VACCINATION 00:00:00 [facility] PFIZER COVID-19 2020-07-02 Completed [facility] M[facility] VACCINATION 00:00:00 [facility] PFIZER COVID-19 2020-07-02 Completed [facility] M[facility] VACCINATION 00:00:00 [facility] PFIZER COVID-19 2020-07-02 Completed [facility] VACCINATION 00:00:00 [facility] PEG FELIZID-19 2020-07-02 Completed [facility] VACCINATION 00:00:00 [facility] PEG COVID-19 2020-07-02 Completed [facility] VACCINATION 00:00:00 [facility] PFIZER COVID-19 2020-07-02 Completed [facility] VACCINATION 00:00:00 [facility] PFIZER COVID-19 2020-07-02 Completed [facility] VACCINATION 00:00:00 [facility] PFIZER COVID-19 2020-07-02 Completed [facility] M[facility] VACCINATION 00:00:00 [facility] PEG FELIZID-19 2020-07-02 Completed [facility] M[facility] VACCINATION 00:00:00 [facility] PEG FELIZID-19 2020-07-02 Completed [facility] M[facility] VACCINATION 00:00:00 [facility] PEG COVID-19 2020-07-02 Completed [facility] M[facility] VACCINATION 00:00:00 [facility] PFIZER COVID-19 2020-07-02 Completed [facility] M[facility] VACCINATION 00:00:00 [facility] PEG COVID-19 2020-07-02 Completed [facility] VACCINATION 00:00:00 [facility] PEG COVID-19 2020-07-02 Completed [facility] M[facility] VACCINATION 00:00:00 [facility] PEG COVID-19 2020-07-02 Completed [facility] VACCINATION 00:00:00 [facility] PFIZER COVID-19 2020-07-02 Completed [facility] VACCINATION 00:00:00 [facility] PFIZER COVID-19 2020-07-02 Completed [facility] VACCINATION 00:00:00 [facility] PFIZER COVID-19 2020-07-02 Completed [facility] M[facility] VACCINATION 00:00:00 [facility] PFIZER COVID-19 2020-07-02 Completed [facility] M[facility] VACCINATION 00:00:00 [facility] PFIZER COVID-19 2020-07-02 Completed [facility] M[facility] VACCINATION 00:00:00 [facility] PFIZER COVID-19 2020-07-02 Completed [facility] M[facility] VACCINATION 00:00:00 [facility] PFIZER COVID-19 2020-07-02 Completed [facility] M[facility] VACCINATION 00:00:00 [facility] PFIZER COVID-19 2020-07-02 Completed [facility] M[facility] VACCINATION 00:00:00 [facility] PFIZER COVID-19 2020-07-02 Completed [facility] VACCINATION 00:00:00 [facility] PFIZER COVID-19 2020-07-02 Completed [facility] VACCINATION 00:00:00 [facility] PFIZER COVID-19 2020-07-02 Completed [facility] VACCINATION 00:00:00 [facility] PFIZER COVID-19 2020-07-02 Completed [facility] VACCINATION 00:00:00 [facility] PFIZER COVID-19 2020-07-02 Completed [facility] VACCINATION 00:00:00 [facility] PFIZER COVID-19 2020-07-02 Completed [facility] MRNA VACCINATION 00:00:00 [facility] PFIZER COVID-19 2020-07-02 Completed [facility] M[facility] VACCINATION 00:00:00 [facility] SARS-COV-2 COVID-19 2020-07-02 Completed [facility] PFIZER VACCINE 00:00:00 [facility] SARS-COV-2 COVID-19 2020-07-02 Completed [facility] of PFIZER VACCINE 00:00:00 [facility] SARS-COV-2 COVID-19 2020-07-02 Completed [facility] of PFIZER VACCINE 00:00:00 [facility] SARS-COV-2 COVID-19 2020-07-02 Completed [facility] of PFIZER VACCINE 00:00:00 [facility] SARS-COV-2 COVID-19 2020-07-02 Completed [facility] of PFIZER VACCINE 00:00:00 [facility] SARS-COV-2 COVID-19 2020-07-02 Completed [facility] of PFIZER VACCINE 00:00:00 [facility] SARS-COV-2 COVID-19 2020-07-02 Completed [facility] of PFIZER VACCINE 00:00:00 [facility] SARS-COV-2 COVID-19 2020-07-02 Completed [facility] of PFIZER VACCINE 00:00:00 [facility] SARS-COV-2 COVID-19 2020-07-02 Completed [facility] of PFIZER VACCINE 00:00:00 [facility] SARS-COV-2 COVID-19 2020-07-02 Completed [facility] of PFIZER VACCINE 00:00:00 [facility] SARS-COV-2 COVID-19 2020-07-02 Completed [facility] of PFIZER VACCINE 00:00:00 [facility] SARS-COV-2 COVID-19 2020-07-02 Completed [facility] of PFIZER VACCINE 00:00:00 [facility] SARS-COV-2 COVID-19 2020-07-02 Completed [facility] of PFIZER VACCINE 00:00:00 [facility] SARS-COV-2 COVID-19 2020-07-02 Completed [facility] of PFIZER VACCINE 00:00:00 [facility] SARS-COV-2 COVID-19 2020-07-02 Completed [facility] of PFIZER VACCINE 00:00:00 [facility] SARS-COV-2 COVID-19 2020-07-02 Completed [facility] of PFIZER VACCINE 00:00:00 [facility] SARS-COV-2 COVID-19 2020-07-02 Completed [facility] of PFIZER VACCINE 00:00:00 [facility] PFIZER COVID-19 2020-07-02 Completed [facility] VACCINATION 00:00:00 [facility] Influenza Virus 2017-03-08 Completed [facility] Vaccine 00:00:00 [facility] Influenza Virus 2017-03-08 Completed [facility] of Vaccine 00:00:00 [facility] Influenza Virus 2017-03-08 Completed [facility] of Vaccine 00:00:00 [facility] Influenza Virus 2017-03-08 Completed [facility] of Vaccine 00:00:00 [facility] Influenza Virus 2017-03-08 Completed [facility] of Vaccine 00:00:00 [facility] Influenza Virus 2017-03-08 Completed [facility] of Vaccine 00:00:00 [facility] Influenza Virus 2017-03-08 Completed [facility] of Vaccine 00:00:00 [facility] Influenza Virus 2017-03-08 Completed [facility] of Vaccine 00:00:00 [facility] Influenza Virus 2017-03-08 Completed [facility] of Vaccine 00:00:00 [facility] Influenza Virus 2017-03-08 Completed [facility] of Vaccine 00:00:00 [facility] Influenza Virus 2017-03-08 Completed [facility] of Vaccine 00:00:00 [facility] Influenza Virus 2017-03-08 Completed [facility] of Vaccine 00:00:00 [facility] Influenza Virus 2017-03-08 Completed [facility] of Vaccine 00:00:00 [facility] Influenza Virus 2017-03-08 Completed [facility] of Vaccine 00:00:00 [facility] Influenza Virus 2017-03-08 Completed [facility] of Vaccine 00:00:00 [facility] Influenza Virus 2017-03-08 Completed [facility] of Vaccine 00:00:00 [facility] Influenza Virus 2017-03-08 Completed [facility] of Vaccine 00:00:00 [facility] Influenza Virus 2017-03-08 Completed [facility] of Vaccine 00:00:00 [facility] Influenza Virus 2017-03-08 Completed [facility] of Vaccine 00:00:00 [facility] Influenza Virus 2017-03-08 Completed [facility] of Vaccine 00:00:00 [facility] Influenza Virus 2017-03-08 Completed [facility] of Vaccine 00:00:00 [facility] Influenza Virus 2014-01-30 Completed [facility] of Vaccine (3+ yrs) 00:00:00 [facility] Pneumococcal 13 2014-01-30 Completed [facility] y of Conjugate, PCV13 00:00:00 [facility] (Prevnar 13) [facility] Influenza Virus 2014-01-30 Completed [facility] of Vaccine (3+ yrs) 00:00:00 [facility] Pneumococcal 13 2014-01-30 Completed [facility] Conjugate, PCV13 00:00:00 [facility] Influenza Virus 2014-01-30 Completed [facility] of Vaccine (3+ yrs) 00:00:00 [facility] Pneumococcal 13 2014-01-30 Completed [facility] of Conjugate, PCV13 00:00:00 [facility] Influenza Virus 2014-01-30 Completed [facility] of Vaccine (3+ yrs) 00:00:00 [facility] Pneumococcal 13 2014-01-30 Completed [facility] of Conjugate, PCV13 00:00:00 [facility] Influenza Virus 2014-01-30 Completed [facility] of Vaccine (3+ yrs) 00:00:00 [facility] Pneumococcal 13 2014-01-30 Completed [facility] of Conjugate, PCV13 00:00:00 [facility] Influenza Virus 2014-01-30 Completed [facility] of Vaccine (3+ yrs) 00:00:00 [facility] Pneumococcal 13 2014-01-30 Completed [facility] of Conjugate, PCV13 00:00:00 [facility] (Prevnar 13) [facility] Influenza Virus 2014-01-30 Completed [facility] Vaccine (3+ yrs) 00:00:00 [facility] Pneumococcal 13 2014-01-30 Completed [facility] of Conjugate, PCV13 00:00:00 [facility] (Prevnar 13) [facility] Influenza Virus 2014-01-30 Completed [facility] of Vaccine (3+ yrs) 00:00:00 [facility] Pneumococcal 13 2014-01-30 Completed [facility] of Conjugate, PCV13 00:00:00 [facility] (Prevnar 13) [facility] Influenza Virus 2014-01-30 Completed [facility] of Vaccine (3+ yrs) 00:00:00 [facility] Pneumococcal 13 2014-01-30 Completed [facility] of Conjugate, PCV13 00:00:00 [facility] dical (Prevnar 13) Branch Influenza Virus 2014-01-30 Completed [facility] y of Vaccine (3+ yrs) 00:00:00 [facility] Pneumococcal 13 2014-01-30 Completed [facility] of Conjugate, PCV13 00:00:00 [facility] (Prevnar 13) [facility] Influenza Virus 2014-01-30 Completed [facility] of Vaccine (3+ yrs) 00:00:00 [facility] Pneumococcal 13 2014-01-30 Completed [facility] y of Conjugate, PCV13 00:00:00 [facility] dical (Prevnar 13) Branch Influenza Virus 2014-01-30 Completed [facility] of Vaccine (3+ yrs) 00:00:00 [facility] Pneumococcal 13 2014-01-30 Completed [facility] of Conjugate, PCV13 00:00:00 [facility] (Prevnar 13) [facility] Influenza Virus 2014-01-30 Completed [facility] of Vaccine (3+ yrs) 00:00:00 [facility] Pneumococcal 13 2014-01-30 Completed [facility] of Conjugate, PCV13 00:00:00 [facility] (Prevnar 13) [facility] Influenza Virus 2014-01-30 Completed [facility] of Vaccine (3+ yrs) 00:00:00 [facility] Pneumococcal 13 2014-01-30 Completed [facility] y of Conjugate, PCV13 00:00:00 [facility] dical (Prevnar 13) Branch Influenza Virus 2014-01-30 Completed [facility] of Vaccine (3+ yrs) 00:00:00 [facility] Pneumococcal 13 2014-01-30 Completed [facility] of Conjugate, PCV13 00:00:00 [facility] (Prevnar 13) [facility] Influenza Virus 2014-01-30 Completed [facility] of Vaccine (3+ yrs) 00:00:00 [facility] Pneumococcal 13 2014-01-30 Completed [facility] of Conjugate, PCV13 00:00:00 [facility] dical (Prevnar 13) Branch Influenza Virus 2014-01-30 Completed [facility] of Vaccine (3+ yrs) 00:00:00 [facility] Pneumococcal 13 2014-01-30 Completed [facility] of Conjugate, PCV13 00:00:00 [facility] dical (Prevnar 13) Branch Influenza Virus 2014-01-30 Completed [facility] of Vaccine (3+ yrs) 00:00:00 [facility] Pneumococcal 13 2014-01-30 Completed [facility] of Conjugate, PCV13 00:00:00 [facility] dical (Prevnar 13) Branch Influenza Virus 2014-01-30 Completed [facility] of Vaccine (3+ yrs) 00:00:00 [facility] Pneumococcal 13 2014-01-30 Completed [facility] of Conjugate, PCV13 00:00:00 [facility] dical (Prevnar 13) Branch Influenza Virus 2014-01-30 Completed [facility] of Vaccine (3+ yrs) 00:00:00 [facility] Pneumococcal 13 2014-01-30 Completed [facility] y of Conjugate, PCV13 00:00:00 [facility] d[facility] (Prevnar 13) Branch Influenza Virus 2014-01-30 Completed [facility] of Vaccine (3+ yrs) 00:00:00 [facility] Pneumococcal 13 2014-01-30 Completed [facility] of Conjugate, PCV13 00:00:00 [facility] (Prevnar 13) Branch Pneumococcal 2012-02-16 Completed [facility] f Polysaccharide, 00:00:00 [facility] PPSV23 (PNEUMOVAX) Branch Influenza Virus 2012-02-16 Completed [facility] of Vaccine 00:00:00 [facility] PPD (TB) 2012-02-16 Completed University of 00:00:00 [facility] Pneumococcal 2012-02-16 Completed [facility] o f Polysaccharide, 00:00:00 [facility] PPSV23 (PNEUMOVAX) Branch Influenza Virus 2012-02-16 Completed [facility] of Vaccine 00:00:00 [facility] PPD (TB) 2012-02-16 Completed [facility] of 00:00:00 [facility] Pneumococcal 2012-02-16 Completed [facility] o f Polysaccharide, 00:00:00 [facility] PPSV23 (PNEUMOVAX) Branch Influenza Virus 2012-02-16 Completed [facility] of Vaccine 00:00:00 [facility] PPD (TB) 2012-02-16 Completed [facility] of 00:00:00 [facility] Pneumococcal 2012-02-16 Completed [facility] o f Polysaccharide, 00:00:00 [place] [facility] PPSV23 (PNEUMOVAX) Branch Influenza Virus 2012-02-16 Completed [facility] of Vaccine 00:00:00 [facility] PPD (TB) 2012-02-16 Completed [facility] of 00:00:00 [facility] Pneumococcal 2012-02-16 Completed [facility] o f Polysaccharide, 00:00:00 [facility] PPSV23 (PNEUMOVAX) Branch Influenza Virus 2012-02-16 Completed [facility] of Vaccine 00:00:00 [facility] PPD (TB) 2012-02-16 Completed [facility] of 00:00:00 [facility] Pneumococcal 2012-02-16 Completed [facility] o f Polysaccharide, 00:00:00 [place] [facility] PPSV23 (PNEUMOVAX) Branch Influenza Virus 2012-02-16 Completed [facility] Vaccine 00:00:00 [facility] PPD (TB) 2012-02-16 Completed [facility] 00:00:00 [facility] Pneumococcal 2012-02-16 Completed University o f Polysaccharide, 00:00:00 [place] [facility] PPSV23 (PNEUMOVAX) Branch Influenza Virus 2012-02-16 Completed Universit y of Vaccine 00:00:00 [facility] PPD (TB) 2012-02-16 Completed [facility] 00:00:00 [facility] Pneumococcal 2012-02-16 Completed [facility] o f Polysaccharide, 00:00:00 [place] [facility] PPSV23 (PNEUMOVAX) Branch Influenza Virus 2012-02-16 Completed [facility]it [facility] of Vaccine 00:00:00 [facility] PPD (TB) 2012-02-16 Completed [facility] 00:00:00 [facility] Pneumococcal 2012-02-16 Completed [facility] o f Polysaccharide, 00:00:00 [place] [facility] PPSV23 (PNEUMOVAX) Branch Influenza Virus 2012-02-16 Completed [facility]it [facility] of Vaccine 00:00:00 [facility] PPD (TB) 2012-02-16 Completed [facility] 00:00:00 [facility] Pneumococcal 2012-02-16 Completed [facility] o f Polysaccharide, 00:00:00 [place] [facility] PPSV23 (PNEUMOVAX) Branch Influenza Virus 2012-02-16 Completed Universit y of Vaccine 00:00:00 [facility] PPD (TB) 2012-02-16 Completed [facility] 00:00:00 [facility] Pneumococcal 2012-02-16 Completed [facility] o f Polysaccharide, 00:00:00 [place] [facility] PPSV23 (PNEUMOVAX) Branch Influenza Virus 2012-02-16 Completed [facility]it y of Vaccine 00:00:00 [facility] PPD (TB) 2012-02-16 Completed [facility] 00:00:00 [facility] Pneumococcal 2012-02-16 Completed [facility] o f Polysaccharide, 00:00:00 [place] [facility] PPSV23 (PNEUMOVAX) Branch Influenza Virus 2012-02-16 Completed [facility]it [facility] of Vaccine 00:00:00 [facility] PPD (TB) 2012-02-16 Completed [facility] 00:00:00 [facility] Pneumococcal 2012-02-16 Completed [facility] o f Polysaccharide, 00:00:00 [place] [facility] PPSV23 (PNEUMOVAX) Branch Influenza Virus 2012-02-16 Completed [facility]it [facility] of Vaccine 00:00:00 [facility] PPD (TB) 2012-02-16 Completed [facility] 00:00:00 [facility] Pneumococcal 2012-02-16 Completed [facility] o f Polysaccharide, 00:00:00 [place] [facility] PPSV23 (PNEUMOVAX) Branch Influenza Virus 2012-02-16 Completed [facility]it [facility] of Vaccine 00:00:00 [facility] PPD (TB) 2012-02-16 Completed [facility] 00:00:00 [facility] Pneumococcal 2012-02-16 Completed [facility] o f Polysaccharide, 00:00:00 [place] [facility] PPSV23 (PNEUMOVAX) Branch Influenza Virus 2012-02-16 Completed [facility]it [facility] of Vaccine 00:00:00 [facility] PPD (TB) 2012-02-16 Completed [facility] 00:00:00 [facility] Pneumococcal 2012-02-16 Completed [facility] o f Polysaccharide, 00:00:00 [place] [facility] PPSV23 (PNEUMOVAX) Branch Influenza Virus 2012-02-16 Completed [facility]it [facility] of Vaccine 00:00:00 [facility] PPD (TB) 2012-02-16 Completed [facility] 00:00:00 [facility] Pneumococcal 2012-02-16 Completed [facility] o f Polysaccharide, 00:00:00 [place] [facility] PPSV23 (PNEUMOVAX) Branch Influenza Virus 2012-02-16 Completed [facility]it [facility] of Vaccine 00:00:00 [facility] PPD (TB) 2012-02-16 Completed [facility] 00:00:00 [facility] Pneumococcal 2012-02-16 Completed [facility] o f Polysaccharide, 00:00:00 [place] [facility] PPSV23 (PNEUMOVAX) Branch Influenza Virus 2012-02-16 Completed [facility]it [facility] of Vaccine 00:00:00 [facility] PPD (TB) 2012-02-16 Completed [facility] 00:00:00 [facility] Pneumococcal 2012-02-16 Completed [facility] o f Polysaccharide, 00:00:00 [place] [facility] PPSV23 (PNEUMOVAX) Branch Influenza Virus 2012-02-16 Completed [facility]it [facility] of Vaccine 00:00:00 [facility] PPD (TB) 2012-02-16 Completed [facility] 00:00:00 [facility] Pneumococcal 2012-02-16 Completed [facility] o f Polysaccharide, 00:00:00 [place] [facility] PPSV23 (PNEUMOVAX) Branch Influenza Virus 2012-02-16 Completed [facility]it [facility] of Vaccine 00:00:00 [facility] PPD (TB) 2012-02-16 Completed [facility] 00:00:00 [facility] Pneumococcal 2012-02-16 Completed [facility] o f Polysaccharide, 00:00:00 [place] [facility] PPSV23 (PNEUMOVAX) Branch Influenza Virus 2012-02-16 Completed [facility]it [facility] of Vaccine 00:00:00 [facility] PPD (TB) 2012-02-16 Completed [facility] of 00:00:00 [facility] Hep B, Adol or Pedi 2011-09-01 Completed Unive rsity of Dosage 00:00:00 [facility] Hep B, Adol or Pedi 2011-09-01 Completed Unive rsity of Dosage 00:00:00 [facility] Hep B, Adol or Pedi 2011-09-01 Completed Unive rsity of Dosage 00:00:00 [facility] Hep B, Adol or Pedi 2011-09-01 Completed [facility] Hep B, Adol or Pedi 2011-03-17 Completed Unive rsity of Dosage 00:00:00 [facility] Hep B, Adol or Pedi 2011-03-17 Completed Unive rsity of Dosage 00:00:00 [facility] Influenza Virus 2011-02-10 Completed Universit y of Vaccine 00:00:00 [facility] Hep B, Adol or Pedi 2011-02-10 Completed Unive rsity of Dosage 00:00:00 [facility] Influenza Virus 2011-02-10 Completed [facility]it [facility] of Vaccine 00:00:00 [facility] Hep B, Adol or Pedi 2011-02-10 Completed Unive rsity of Dosage 00:00:00 [facility] Influenza Virus 2011-02-10 Completed [facility]it [facility] of Vaccine 00:00:00 [facility] Hep B, Adol or Pedi 2011-02-10 Completed Unive rsity of Dosage 00:00:00 [facility] Influenza Virus 2011-02-10 Completed [facility]it [facility] of Vaccine 00:00:00 [facility] Hep B, Adol or Pedi 2011-02-10 Completed Unive rsity of Dosage 00:00:00 [facility] Influenza Virus 2011-02-10 Completed [facility]it [facility] of Vaccine 00:00:00 [facility] Hep B, Adol or Pedi 2011-02-10 Completed Unive rsity of Dosage 00:00:00 [facility] Influenza Virus 2011-02-10 Completed [facility]it [facility] of Vaccine 00:00:00 [facility] Hep B, Adol or Pedi 2011-02-10 Completed Unive rsity of Dosage 00:00:00 [facility] Influenza Virus 2011-02-10 Completed Universit y of Vaccine 00:00:00 [facility] Hep B, Adol or Pedi 2011-02-10 Completed Unive rsity of Dosage 00:00:00 [facility] Influenza Virus 2011-02-10 Completed Universit y of Vaccine 00:00:00 [facility] Hep B, Adol or Pedi 2011-02-10 Completed Unive rsity of Dosage 00:00:00 [facility] Influenza Virus 2011-02-10 Completed Universit y of Vaccine 00:00:00 [facility] Hep B, Adol or Pedi 2011-02-10 Completed Unive rsity of Dosage 00:00:00 [facility] Influenza Virus 2011-02-10 Completed Universit y of Vaccine 00:00:00 [facility] Hep B, Adol or Pedi 2011-02-10 Completed Unive rsity of Dosage 00:00:00 [facility] Influenza Virus 2011-02-10 Completed [facility]it [facility] of Vaccine 00:00:00 [facility] Hep B, Adol or Pedi 2011-02-10 Completed Unive rsity of Dosage 00:00:00 [facility] Influenza Virus 2011-02-10 Completed Universit y of Vaccine 00:00:00 [facility] Hep B, Adol or Pedi 2011-02-10 Completed Unive rsity of Dosage 00:00:00 [facility] Influenza Virus 2011-02-10 Completed Universit y of Vaccine 00:00:00 [facility] Hep B, Adol or Pedi 2011-02-10 Completed Unive rsity of Dosage 00:00:00 [facility] Influenza Virus 2011-02-10 Completed Universit [facility] of Vaccine 00:00:00 [facility] Hep B, Adol or Pedi 2011-02-10 Completed Unive rsity of Dosage 00:00:00 [facility] Influenza Virus 2011-02-10 Completed Universit y of Vaccine 00:00:00 [facility] Hep B, Adol or Pedi 2011-02-10 Completed Unive rsity of Dosage 00:00:00 [facility] Influenza Virus 2011-02-10 Completed [facility]it [facility] of Vaccine 00:00:00 [facility] Hep B, Adol or Pedi 2011-02-10 Completed Unive rsity of Dosage 00:00:00 [facility] Influenza Virus 2011-02-10 Completed Universit [facility] of Vaccine 00:00:00 [facility] Hep B, Adol or Pedi 2011-02-10 Completed Unive rsity of Dosage 00:00:00 [facility] Influenza Virus 2011-02-10 Completed [facility]it [facility] of Vaccine 00:00:00 [facility] Hep B, Adol or Pedi 2011-02-10 Completed Unive rsity of Dosage 00:00:00 [facility] Influenza Virus 2011-02-10 Completed [facility]it [facility] of Vaccine 00:00:00 [facility] Hep B, Adol or Pedi 2011-02-10 Completed Unive rsity of Dosage 00:00:00 [facility] Influenza Virus 2011-02-10 Completed [facility]it [facility] of Vaccine 00:00:00 [facility] Hep B, Adol or Pedi 2011-02-10 Completed Unive rsity of Dosage 00:00:00 [facility] Influenza Virus 2011-02-10 Completed Universit [facility] of Vaccine 00:00:00 [facility] Hep B, Adol or Pedi 2011-02-10 Completed Unive rsity of Dosage 00:00:00 [facility] PPD (TB) 2010-11-18 Completed [facility] 00:00:00 [facility] TDAP (ADACEL) 2010-11-18 Completed University of VACCINE 00:00:00 [facility] PPD (TB) 2010-11-18 Completed [facility] of 00:00:00 [facility] TDAP (ADACEL) 2010-11-18 Completed University of VACCINE 00:00:00 [facility] PPD (TB) 2010-11-18 Completed [facility] of 00:00:00 [facility] TDAP (ADACEL) 2010-11-18 Completed University of VACCINE 00:00:00 [facility] PPD (TB) 2010-11-18 Completed [facility] of 00:00:00 [facility] TDAP (ADACEL) 2010-11-18 Completed University of VACCINE 00:00:00 [facility] PPD (TB) 2010-11-18 Completed [facility] of 00:00:00 [facility] TDAP (ADACEL) 2010-11-18 Completed University of VACCINE 00:00:00 [facility] PPD (TB) 2010-11-18 Completed [facility] of 00:00:00 [facility] TDAP (ADACEL) 2010-11-18 Completed University of VACCINE 00:00:00 [facility] PPD (TB) 2010-11-18 Completed [facility] of 00:00:00 [facility] TDAP (ADACEL) 2010-11-18 Completed University of VACCINE 00:00:00 [facility] PPD (TB) 2010-11-18 Completed [facility] of 00:00:00 [facility] TDAP (ADACEL) 2010-11-18 Completed University of VACCINE 00:00:00 [facility] PPD (TB) 2010-11-18 Completed [facility] of 00:00:00 [facility] TDAP (ADACEL) 2010-11-18 Completed University of VACCINE 00:00:00 [facility] PPD (TB) 2010-11-18 Completed [facility] of 00:00:00 [facility] TDAP (ADACEL) 2010-11-18 Completed University of VACCINE 00:00:00 [facility] PPD (TB) 2010-11-18 Completed [facility] of 00:00:00 [facility] TDAP (ADACEL) 2010-11-18 Completed University of VACCINE 00:00:00 [facility] PPD (TB) 2010-11-18 Completed [facility] of 00:00:00 [facility] TDAP (ADACEL) 2010-11-18 Completed University of VACCINE 00:00:00 [facility] PPD (TB) 2010-11-18 Completed [facility] of 00:00:00 [facility] TDAP (ADACEL) 2010-11-18 Completed University of VACCINE 00:00:00 [facility] PPD (TB) 2010-11-18 Completed [facility] of 00:00:00 [facility] TDAP (ADACEL) 2010-11-18 Completed University of VACCINE 00:00:00 [facility] PPD (TB) 2010-11-18 Completed [facility] of 00:00:00 [facility] TDAP (ADACEL) 2010-11-18 Completed [facility] of VACCINE 00:00:00 [facility] PPD (TB) 2010-11-18 Completed [facility] of 00:00:00 [facility] TDAP (ADACEL) 2010-11-18 Completed University of VACCINE 00:00:00 [facility] PPD (TB) 2010-11-18 Completed [facility] of 00:00:00 [facility] TDAP (ADACEL) 2010-11-18 Completed University of VACCINE 00:00:00 [facility] PPD (TB) 2010-11-18 Completed [facility] of 00:00:00 [facility] TDAP (ADACEL) 2010-11-18 Completed [facility] of VACCINE 00:00:00 [facility] PPD (TB) 2010-11-18 Completed [facility] of 00:00:00 [facility] TDAP (ADACEL) 2010-11-18 Completed University of VACCINE 00:00:00 [facility] PPD (TB) 2010-11-18 Completed [facility] of 00:00:00 [facility] TDAP (ADACEL) 2010-11-18 Completed University of VACCINE 00:00:00 [facility] PPD (TB) 2010-11-18 Completed [facility] of 00:00:00 [facility] TDAP (ADACEL) 2010-11-18 Completed University of VACCINE 00:00:00 [facility] HEPATITIS A 2004-03-02 Completed [facility] 00:00:00 [facility] HEPATITIS A 2004-03-02 Completed [facility] 00:00:00 [facility] HEPATITIS A 2004-03-02 Completed [facility] 00:00:00 [facility] HEPATITIS A 2004-03-02 Completed University [...] HEPATITIS A 2003-08-01 Completed [facility] 00:00:00 [facility] HEPATITIS A 2003-08-01 Completed [facility] 00:00:00 [facility] HEPATITIS A 2003-08-01 Completed [facility] 00:00:00 [facility] HEPATITIS A 2003-08-01 Completed [facility] 00:00:00 [facility] HEPATITIS A 2003-08-01 Completed [facility] 00:00:00 [facility] HEPATITIS A 2003-08-01 Completed [facility] 00:00:00 [facility] HEPATITIS A 2003-08-01 Completed [facility] of 00:00:00 [facility] HEPATITIS A 2003-08-01 Completed [facility] of 00:00:00 [facility] HEPATITIS A 2003-08-01 Completed [facility] 00:00:00 [facility] HEPATITIS A 2003-08-01 Completed [facility] 00:00:00 [facility] HEPATITIS A 2003-08-01 Completed [facility] of 00:00:00 [facility] HEPATITIS A 2003-08-01 Completed [facility] of 00:00:00 [facility] HEPATITIS A 2003-08-01 Completed [facility] of 00:00:00 [facility] HEPATITIS A 2003-08-01 Completed [facility] 00:00:00 [facility] HEPATITIS A 2003-08-01 Completed [facility] of 00:00:00 [facility] HEPATITIS A 2003-08-01 Completed [facility] of 00:00:00 [facility] HEPATITIS A 2003-08-01 Completed [facility] of 00:00:00 [facility] HEPATITIS A 2003-08-01 Completed [facility] of 00:00:00 [facility] HEPATITIS A 2003-08-01 Completed [facility] of 00:00:00 [facility] HEPATITIS A 2003-08-01 Completed [facility] 00:00:00 [facility] Pneumococcal 2001-10-04 Completed University o f Polysaccharide, 00:00:00 [place] [facility] PPSV23 (PNEUMOVAX) Branch PPD (TB) 2001-10-04 Completed [facility] 00:00:00 [facility] Pneumococcal 2001-10-04 Completed University o f Polysaccharide, 00:00:00 [place] [facility] PPSV23 (PNEUMOVAX) Branch PPD (TB) 2001-10-04 Completed [facility] 00:00:00 [facility] Pneumococcal 2001-10-04 Completed University o f Polysaccharide, 00:00:00 [place] [facility] PPSV23 (PNEUMOVAX) Branch PPD (TB) 2001-10-04 Completed [facility] 00:00:00 [facility] Pneumococcal 2001-10-04 Completed [facility] o f Polysaccharide, 00:00:00 [place] [facility] PPSV23 (PNEUMOVAX) Branch PPD (TB) 2001-10-04 Completed [facility] 00:00:00 [facility] Pneumococcal 2001-10-04 Completed University o f Polysaccharide, 00:00:00 [place] [facility] PPSV23 (PNEUMOVAX) Branch PPD (TB) 2001-10-04 Completed [facility] 00:00:00 [facility] Pneumococcal 2001-10-04 Completed [facility] o f Polysaccharide, 00:00:00 [place] [facility] PPSV23 (PNEUMOVAX) Branch PPD (TB) 2001-10-04 Completed [facility] 00:00:00 [facility] Pneumococcal 2001-10-04 Completed [facility] o f Polysaccharide, 00:00:00 [place] [facility] PPSV23 (PNEUMOVAX) Branch PPD (TB) 2001-10-04 Completed [facility] 00:00:00 [facility] Pneumococcal 2001-10-04 Completed University o f Polysaccharide, 00:00:00 [place] [facility] PPSV23 (PNEUMOVAX) Branch PPD (TB) 2001-10-04 Completed [facility] 00:00:00 [facility] Pneumococcal 2001-10-04 Completed [facility] o f Polysaccharide, 00:00:00 [place] [facility] PPSV23 (PNEUMOVAX) Branch PPD (TB) 2001-10-04 Completed [facility] 00:00:00 [facility] Pneumococcal 2001-10-04 Completed [facility] o f Polysaccharide, 00:00:00 [place] [facility] PPSV23 (PNEUMOVAX) Branch PPD (TB) 2001-10-04 Completed [facility] 00:00:00 [facility] Pneumococcal 2001-10-04 Completed [facility] o f Polysaccharide, 00:00:00 [place] [facility] PPSV23 (PNEUMOVAX) Branch PPD (TB) 2001-10-04 Completed [facility] 00:00:00 [facility] Pneumococcal 2001-10-04 Completed [facility] o f Polysaccharide, 00:00:00 [place] [facility] PPSV23 (PNEUMOVAX) Branch PPD (TB) 2001-10-04 Completed [facility] 00:00:00 [facility] Pneumococcal 2001-10-04 Completed [facility] o f Polysaccharide, 00:00:00 [place] [facility] PPSV23 (PNEUMOVAX) Branch PPD (TB) 2001-10-04 Completed [facility] 00:00:00 [facility] Pneumococcal 2001-10-04 Completed [facility] o f Polysaccharide, 00:00:00 [place] [facility] PPSV23 (PNEUMOVAX) Branch PPD (TB) 2001-10-04 Completed [facility] 00:00:00 [facility] Pneumococcal 2001-10-04 Completed [facility] o f Polysaccharide, 00:00:00 [place] [facility] PPSV23 (PNEUMOVAX) Branch PPD (TB) 2001-10-04 Completed [facility] 00:00:00 [facility] Pneumococcal 2001-10-04 Completed [facility] o f Polysaccharide, 00:00:00 [place] [facility] PPSV23 (PNEUMOVAX) Branch PPD (TB) 2001-10-04 Completed [facility] 00:00:00 [facility] Pneumococcal 2001-10-04 Completed [facility] o f Polysaccharide, 00:00:00 [place] [facility] PPSV23 (PNEUMOVAX) Branch PPD (TB) 2001-10-04 Completed [facility] 00:00:00 [facility] Pneumococcal 2001-10-04 Completed [facility] o f Polysaccharide, 00:00:00 [place] [facility] PPSV23 (PNEUMOVAX) Branch PPD (TB) 2001-10-04 Completed [facility] 00:00:00 [facility] Pneumococcal 2001-10-04 Completed [facility] o f Polysaccharide, 00:00:00 [place] [facility] PPSV23 (PNEUMOVAX) Branch PPD (TB) 2001-10-04 Completed [facility] 00:00:00 [facility] Pneumococcal 2001-10-04 Completed [facility] o f Polysaccharide, 00:00:00 [place] [facility] PPSV23 (PNEUMOVAX) Branch PPD (TB) 2001-10-04 Completed [facility] 00:00:00 [facility] Pneumococcal 2001-10-04 Completed [facility] o f Polysaccharide, 00:00:00 [place] [facility] PPSV23 (PNEUMOVAX) Branch PPD (TB) 2001-10-04 Completed [facility] 00:00:00 [facility] Vital Signs Vital Name Observation Time Observation Value Comments Source Systolic blood 2022-05-10 22:00:00 159 mm[Hg] Univer sity of pressure [facility] Diastolic blood 2022-05-10 22:00:00 87 mm[Hg] Unive rsity of pressure [facility] Heart rate 2022-05-10 22:00:00 56 /min [facility] Body temperature 2022-05-10 22:00:00 36.61 Amina [facility] 2022-05-10 22:00:00 17 /min [facility] Oxygen saturation in 2022-05-10 22:00:00 98 /min [facility] Arterial blood by [facility] Pulse oximetry Branch Body weight 2022-05-10 16:29:00 78.926 kg [facility] BMI 2022-05-10 16:29:00 29.87 kg/m2 [facility] Systolic blood 2022-05-08 22:30:00 168 mm[Hg] [facility] of pressure [facility] Diastolic blood 2022-05-08 22:30:00 85 mm[Hg] Unive rsity of pressure [facility] Heart rate 2022-05-08 22:30:00 68 /min [facility] Oxygen saturation in 2022-05-08 22:30:00 100 /min [facility] Arterial blood by [place] [employer] [facility] Pulse oximetry Branch Body temperature 2022-05-08 22:22:00 35.89 Amina [facility] Respiratory rate 2022-05-08 22:22:00 14 /min [facility] Body weight 2022-05-08 22:22:00 78.926 kg [facility] BMI 2022-05-08 22:22:00 29.87 kg/m2 [facility] Systolic blood 2022-05-07 00:00:00 149 mm[Hg] [facility]ity of pressure [facility] Diastolic blood 2022-05-07 00:00:00 132 mm[Hg] [facility] Heart rate 2022-05-07 00:00:00 59 /min [facility] Respiratory rate 2022-05-07 00:00:00 14 /min [facility] Oxygen saturation in 2022-05-07 00:00:00 99 /min [facility] Arterial blood by [place] [employer] [facility] Pulse oximetry Branch Body temperature 2022-05-06 [...] 69 /min [facility] Body temperature 2022-04-22 19:50:00 36.67 Amina [facility] Respiratory rate 2022-04-22 19:50:00 17 /min [facility] Body height 2022-04-22 19:50:00 162.6 cm [facility] Body weight 2022-04-22 19:50:00 80.74 kg [facility] BMI 2022-04-22 19:50:00 30.55 kg/m2 [facility] Oxygen saturation in 2022-04-22 19:50:00 96 /min University Arterial blood by [facility] Pulse oximetry Branch Systolic blood 2022-03-05 [...] 21:41:00 86 mm[Hg] [facility] Heart rate 2022-02-16 21:41:00 51 /min [facility] Body temperature 2022-02-16 21:41:00 36.56 Amina [facility] Respiratory rate 2022-02-16 21:41:00 17 /min [facility] Oxygen saturation in 2022-02-16 21:41:00 98 /min [facility] Arterial blood by [facility] Pulse oximetry [place] Body height 2022-02-11 16:02:00 162.6 cm Universi ty of [facility] Body weight 2022-02-11 16:02:00 79.379 kg Universi ty of [facility] BMI 2022-02-11 16:02:00 30.04 kg/m2 Universi ty [facility] Systolic blood 2021-11-20 13:47:00 165 mm[Hg] Univer [facility]ity of [facility] Diastolic blood 2021-11-20 13:47:00 83 mm[Hg] [facility] Heart rate 2021-11-20 13:47:00 58 /min Universi ty [facility] Body temperature 2021-11-20 13:42:00 36.39 Amina [facility] 2021-11-20 13:42:00 16 /[facility] Body height 2021-11-20 13:42:00 162.6 cm Universi ty [facility] Body weight 2021-11-20 13:42:00 84.369 kg Universi ty [facility] BMI 2021-11-20 13:42:00 31.93 kg/m2 Univers[facility] ty [facility] Systolic blood 2021-07-14 15:18:00 142 mm[Hg] [...] 2022-05-10 22:00:00 159 mm[Hg] [facility] Diastolic blood 2022-05-10 22:00:00 87 mm[Hg] [facility] Heart rate 2022-05-10 22:00:00 56 /min [facility] Body temperature 2022-05-10 22:00:00 36.61 Amina [facility] Respiratory rate 2022-05-10 22:00:00 17 /min [facility] Oxygen saturation in 2022-05-10 22:00:00 98 /min [facility] Arterial blood by [facility] Pulse oximetry Branch Body weight 2022-05-10 16:29:00 78.926 kg [facility] BMI 2022-05-10 16:29:00 29.87 kg/m2 [facility] Body height 2022-05-06 20:12:00 162.6 cm [facility] Systolic blood 2022-03-05 15:23:00 167 mm[Hg] [facility] Diastolic blood 2022-03-05 15:23:00 105 mm[Hg] [facility] Heart rate 2022-03-05 15:23:00 49 [...] /min [facility] Arterial blood by [facility] Pulse oximetry Branch Systolic blood 2020-12-08 15:48:00 125 mm[Hg] Method ist [facility] pressure Diastolic blood 2020-12-08 15:48:00 76 mm[Hg] [facility] pressure Heart rate 2020-12-08 15:48:00 64 /min Methodis t [facility] Body temperature 2020-12-08 15:48:00 36.61 Amina [facility] Respiratory rate 2020-12-08 15:48:00 17 /min [facility] Body height 2020-12-08 15:48:00 162.6 cm [facility] Body weight 2020-12-08 15:48:00 98.884 kg [facility] BMI 2020-12-08 15:48:00 37.42 kg/m2 [facility] Oxygen saturation in 2020-12-08 15:48:00 97 /min [facility] Arterial blood by Pulse oximetry [place] Rate 2020-08-30 13:00:00 [facility] [place] Systolic (mm Hg) 2020-08-30 13:00:00 Caesar [facility] [place] Diastolic (mm Hg) 2020-08-30 13:00:00 Mem orial [place] Systolic (mm Hg) 2020-08-30 11:00:00 Caesar [facility] [place] Diastolic (mm Hg) 2020-08-30 11:00:00 Mem orial [place] Temperature Oral (F) 2020-08-30 11:00:00 98.4 F [facility] Respitory Rate 2020-08-30 11:00:00 [facility] Respitory Rate 2020-08-30 10:00:00 [facility] [place] Systolic (mm Hg) 2020-08-30 10:00:00 Caesar [facility] [place] Diastolic (mm Hg) 2020-08-30 10:00:00 Mem orial [facility] Temperature Oral (F) 2020-08-30 00:00:00 96.9 F [facility] Temperature Oral (F) 2020-08-29 11:26:00 97[facility]6 [facility] Height 2020-08-29 10:30:00 162.56 cm [facility] Weight 2020-08-29 10:30:00 [facility] BMI Calculated 2020-08-29 10:30:00 [facility] [place] Procedures Procedure Date / Time Performing Clinician Source Performed URINALYSIS 2022-05-10 19:36:00 Home [facility] TROPONIN I 2022-05-10 18:34:00 Home [facility] COMP. METABOLIC PANEL 2022-05-10 18:34:00 Home Matthews [facility] ([id number]) [facility] CBC WITH DIFF 2022-05-10 18:34:00 Home [facility] XR CHEST 2 VW 2022-05-10 17:24:58 Home [facility] CONSENT/REFUSAL FOR 2022-05-10 16:26:23 Doctor Daron [facility] DIAGNOSIS AND TREATMENT [place] [facility] CONSENT/REFUSAL FOR 2022-05-10 16:26:09 Doctor Daron [facility] DIAGNOSIS AND TREATMENT [place] [facility] URINALYSIS 2022-05-08 22:43:00 Theresa Hickman [facility] XR CHEST 2 VW 2022-05-06 22:56:53 Anette Olea [facility] COMP. METABOLIC PANEL 2022-05-06 22:14:00 Anette Olea [facility] ([id number]) Medical Branch CBC WITH DIFF 2022-05-06 22:14:00 Anette Olea [facility] COVID-19 (ID NOW RAPID 2022-05-06 22:14:[address] [facility] TESTING) Medical Branch BASIC METABOLIC PANEL (NA, 2022-04-22 21:23:00 Paulette Gray [facility] K, CL, CO2, GLUCOSE, BUN, Medica l [place] CREATININE, [place]) CBC WITH DIFF 2022-04-22 21:23:00 Paulette Gray [facility] CONSENT/REFUSAL FOR 2022-04-22 19:45:46 Doctor Daron [facility] DIAGNOSIS AND TREATMENT [place] [facility] SARS-COV-2 COVID-19 2022-03-05 16:09:27 [facility] DIMITRIS-SUCROSE VACCINE [address] [place] [address] YRS+, BIVALENT 0.3ML, IM, (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) FLU 2022-03-05 16:09:[address] [facility] VACC(),65+YR,0.5 Medica l Branch ML,IM,ADJUVANTED,QUAD(FLUA D) FLU 2022-03-05 16:09:[address] [facility] VACC(),65+YR,0.5 Medica l Branch ML,IM,ADJUVANTED,QUAD(FLUA D) SARS-COV-2 COVID-19 2022-03-05 16:09:27 [facility] DIMITRIS-SUCROSE VACCINE 12 Medical Branch YRS+, BIVALENT 0.3ML, IM, (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) MAGNESIUM 2022-02-15 09:41:00 Sofia Garcia [facility] BASIC METABOLIC PANEL (NA, 2022-02-15 09:41:00 Sofia Garcia [facility] K, CL, CO2, GLUCOSE, BUN, Medica l Branch CREATININE, [place]) CBC WITH DIFF 2022-02-15 09:41:00 Radha [facility] N-TERMINAL PRO-BNP 2022-02-15 09:41:00 Radha Sofia [facility] CBC WITH DIFF 2022-02-15 09:41:00 Radha [facility] BASIC METABOLIC PANEL (NA, 2022-02-15 09:41:00 Sofia Garcia [facility] K, CL, CO2, GLUCOSE, BUN, Medica l Branch CREATININE, CA) MAGNESIUM 2022-02-15 09:41:00 Radha [facility] N-TERMINAL PRO-BNP 2022-02-15 09:41:00 Sofia Garcia [facility] BASIC METABOLIC PANEL (NA, 2022-02-13 09:40:00 Sofia Garcia [facility] K, CL, CO2, GLUCOSE, BUN, Medica l Branch CREATININE, CA) CBC WITH DIFF 2022-02-13 09:40:00 Radha [facility] BASIC METABOLIC PANEL (NA, 2022-02-13 09:40:00 Sofia Garcia [facility] K, CL, CO2, GLUCOSE, BUN, Medica l Branch CREATININE, CA) CBC WITH DIFF 2022-02-13 09:40:00 Radha Sofia [facility] TROPONIN I 2022-02-11 23:41:00 Radha [facility] N-TERMINAL PRO-BNP 2022-02-11 23:41:00 Sofia Garcia [facility] TROPONIN I 2022-02-11 23:41:00 Sofia Garcia [facility] N-TERMINAL PRO-BNP 2022-02-11 23:41:00 Sofia Garcia [facility] HB ECG ROUTINE & RHYTHM 2022-02-11 22:15:36 Sofia Garcia [facility] TRANSTHORACIC ECHO (TTE) 2022-02-11 21:26:50 [facility] 2022-02-11 21:26:50 Sofia Garcia Un [facility] CT ABDOMEN PELVIS W 2022-02-11 07:45:43 Miguelangel Reilly [facility] CONTRAST [facility] CT ABDOMEN PELVIS W 2022-02-11 07:45:43 Miguelangel Reilly [facility] CONTRAST [facility] RAPID INFLUENZA A/B 2022-02-11 06:54:00 Miguelangel Reilly [facility] RAPID INFLUENZA A/B 2022-02-11 06:54:00 Reilly Means [facility] URINALYSIS 2022-02-11 06:45:00 Reilly Means [facility] URINE CULTURE 2022-02-11 06:45:00 Miguelangel Reilly [facility] URINALYSIS 2022-02-11 06:45:00 Miguelangel Reilly [facility] URINE CULTURE 2022-02-11 06:45:00 Reilly Means [facility] HB ECG ROUTINE & RHYTHM 2022-02-11 05:22:08 Reilly Means [facility] HB ECG ROUTINE & RHYTHM 2022-02-11 05:22:08 Reilly Means [facility] BLOOD CULTURE SCREEN 2022-02-11 04:58:00 Reilly Means [facility] TROPONIN I 2022-02-11 04:58:00 Reilly Means [facility] COMP. METABOLIC PANEL 2022-02-11 04:58:00 Reilly Means [facility] ([id number]) [facility] CBC WITH DIFF 2022-02-11 04:58:00 Reilly Means [facility] PROTHROMBIN TIME / INR 2022-02-11 04:58:00 Reilly Means [facility] ACTIVATED PARTIAL THRMPLAS 2022-02-11 04:58:[address] [facility] N-TERMINAL PRO-BNP 2022-02-11 04:58:00 Reilly Means [facility] LACTIC ACID WHOLE BLOOD 2022-02-11 04:58:00 Reilly Means [facility] COVID-19 (ID NOW RAPID 2022-02-11 04:58:00 Reilly Means [facility] TESTING) Medical Branch LAB ONLY COVID 2022-02-11 04:58:00 Reilly Means [facility] CBC WITH DIFF 2022-02-11 04:58:00 Reilly Means [facility] ACTIVATED PARTIAL THRMPLAS 2022-02-11 04:58:[address] [facility] PROTHROMBIN TIME / INR 2022-02-11 04:58:00 Reilly Means [facility] COVID-19 (ID NOW RAPID 2022-02-11 04:58:00 Reilly Means [facility] TESTING) Medical Branch COMP. METABOLIC PANEL 2022-02-11 04:58:00 Reilly Means [facility] ([id number]) [facility] TROPONIN I 2022-02-11 04:58:00 Reilly Means [facility] N-TERMINAL PRO-BNP 2022-02-11 04:58:00 Reilly Means [facility] BLOOD CULTURE SCREEN 2022-02-11 04:58:00 Reilly Means [facility] LACTIC ACID WHOLE BLOOD 2022-02-11 04:58:00 Reilly Means [facility] LAB ONLY COVID 2022-02-11 04:58:00 Reilly Means [facility] XR CHEST 1 VW 2022-02-11 04:27:42 Reilly Means [facility] XR CHEST 1 VW 2022-02-11 04:27:42 Reilly Means [facility] HOSPITAL ADMISSION 2022-02-10 05:01:00 Doctor Unassigned, [facility] Name Medical Branch HOSPITAL ADMISSION 2022-02-10 05:01:00 Doctor Unassigned, [facility] Name Medical Branch ECG 12-LEAD 2021-07-14 15:14:00 AnaHolly centenoanishamaria elena [facility] [id number] 2021-06-17 00:00:00 RIKY Freedman [facility] GASTROINTESTINAL PANEL 2020-12-08 22:21[facility]00 [facility] XR ABDOMEN 1 VW 2020-12-08 18:06:32 Eliseo Arce [facility] [place] < 1 HOUR 2020-09-05 22:39:00 Eliseo Arce [facility] SURGICAL PATHOLOGY REQUEST 2020-09-05 21:54:00 [facility] XR CHEST 1 VW PORTABLE 2020-09-05 19:55:00 [facility] DISCHARGE PATIENT 2020-09-05 17:27:55 Lucas Harris [facility] [place] AN ELECTIVE 2020-09-05 16:47:23 [facility], INTRAOPERATIVE 2020-09-05 16:27:00 [facility] 2020-09-05 15:04[facility]00 [facility] TIME (PTT) M. PROTHROMBIN TIME WITH INR 2020-09-05 15:04:00 [facility] M. Plan of Care Planned Activity Planned Date Details Comments Source Future Scheduled 2022-09-10 SHINGLES VACCINES (1 Met [facility] Test 15:06:53 of 2) [code = SHINGLES VACCINES (1 of 2)] Future Scheduled 2022-09-10 BREAST CANCER [facility] Test 15:06:53 SCREENING [code = BREAST CANCER SCREENING] Future Scheduled 2022-09-10 COLONOSCOPY SCREENING [facility] Test 15:06:53 [code = COLONOSCOPY SCREENING] Future Scheduled 2022-09-10 HEPATITIS B VACCINES Met [facility] Test 15:06:53 (1 of 3 - Risk 3-dose series) [code = HEPATITIS B VACCINES (1 of 3 - Risk 3-dose series)] Future Scheduled 2022-09-10 COVID-19 VACCINE (3 - Me [facility] Test 15:06:53 Booster for Pfizer series) [code = COVID-19 VACCINE (3 - Booster for Pfizer series)] Future Scheduled 2022-09-10 65+ [facility] VACCINE (4 - PPSV23 if available, else PCV20) [code = 65+ PNEUMOCOCCAL VACCINE (4 - PPSV23 if available, else PCV20)] Future Scheduled 2022-09-10 INFLUENZA VACCINE Method [facility] Test 15:06:53 [code = INFLUENZA VACCINE] Future Scheduled 2022-09-10 SHINGLES VACCINES (1 Met [facility] Test 15:06:53 of 2) [code = SHINGLES VACCINES (1 of 2)] Future Scheduled 2022-09-10 BREAST CANCER [facility] Test 15:06:53 SCREENING [code = BREAST CANCER SCREENING] Future Scheduled 2022-09-10 COLONOSCOPY SCREENING [facility] Test 15:06:53 [code = COLONOSCOPY SCREENING] Future Scheduled 2022-09-10 HEPATITIS B VACCINES Met [facility] Test 15:06:53 (1 of 3 - Risk 3-dose series) [code = HEPATITIS B VACCINES (1 of 3 - Risk 3-dose series)] Future Scheduled 2022-09-10 COVID-19 VACCINE (3 - Me [facility] Test 15:06:53 Booster for Pfizer series) [code = COVID-19 VACCINE (3 - Booster for Pfizer series)] Future Scheduled 2022-09-10 65+ [facility]AL [facility] Test 15:06:53 VACCINE (4 - PPSV23 if available, else PCV20) [code = 65+ PNEUMOCOCCAL VACCINE (4 - PPSV23 if available, else PCV20)] Future Scheduled 2022-09-10 INFLUENZA VACCINE Method [facility] Test 15:06:53 [code = INFLUENZA VACCINE] Future Scheduled 2022-09-10 SHINGLES VACCINES (1 Met [facility] Test 15:06:53 of 2) [code = SHINGLES VACCINES (1 of 2)] Future Scheduled 2022-09-10 BREAST CANCER [facility] Test 15:06:53 SCREENING [code = BREAST CANCER SCREENING] Future Scheduled 2022-09-10 COLONOSCOPY SCREENING [facility] Test 15:06:53 [code = COLONOSCOPY SCREENING] Future Scheduled 2022-09-10 HEPATITIS B VACCINES Met [facility] Test 15:06:53 (1 of 3 - Risk 3-dose series) [code = HEPATITIS B VACCINES (1 of 3 - Risk 3-dose series)] Future Scheduled 2022-09-10 COVID-19 VACCINE (3 - Me [facility] Test 15:06:53 Booster for Pfizer series) [code = COVID-19 VACCINE (3 - Booster for Pfizer series)] Future Scheduled 2022-09-10 65+ PNEUMOCOCCAL [facility] Test 15:06:53 VACCINE (4 - PPSV23 if available, else PCV20) [code = 65+ PNEUMOCOCCAL VACCINE (4 - PPSV23 if available, else PCV20)] Future Scheduled 2022-09-10 INFLUENZA VACCINE Method [facility] Test 15:06:53 [code = INFLUENZA VACCINE] Future Scheduled 2022-09-10 SHINGLES VACCINES (1 Met [facility] Test 15:06:53 of 2) [code = SHINGLES VACCINES (1 of 2)] Future Scheduled 2022-09-10 BREAST CANCER [facility] Test 15:06:53 SCREENING [code = BREAST CANCER SCREENING] Future Scheduled 2022-09-10 COLONOSCOPY SCREENING [facility] Test 15:06:53 [code = COLONOSCOPY SCREENING] Future Scheduled 2022-09-10 HEPATITIS B VACCINES Met [facility] Test 15:06:53 (1 of 3 - Risk 3-dose series) [code = HEPATITIS B VACCINES (1 of 3 - Risk 3-dose series)] Future Scheduled 2022-09-10 COVID-19 VACCINE (3 - [facility] Test 15:06:53 Booster for Pfizer series) [code = COVID-19 VACCINE (3 - Booster for Pfizer series)] Future Scheduled 2022-09-10 65+ [facility]AL [facility] Test 15:06:53 VACCINE (4 - PPSV23 if available, else PCV20) [code = 65+ PNEUMOCOCCAL VACCINE (4 - PPSV23 if available, else PCV20)] Future Scheduled 2022-09-10 INFLUENZA VACCINE Method [facility] Test 15:06:53 [code = INFLUENZA VACCINE] Future Scheduled 2022-09-10 SHINGLES VACCINES (1 Met [facility] Test 15:06:53 of 2) [code = SHINGLES VACCINES (1 of 2)] Future Scheduled 2022-09-10 BREAST CANCER [facility] Test 15:06:53 SCREENING [code = BREAST CANCER SCREENING] Future Scheduled 2022-09-10 COLONOSCOPY SCREENING [facility] Test 15:06:53 [code = COLONOSCOPY SCREENING] Future Scheduled 2022-09-10 HEPATITIS B VACCINES Met [facility] Test 15:06:53 (1 of 3 - Risk 3-dose series) [code = HEPATITIS B VACCINES (1 of 3 - Risk 3-dose series)] Future Scheduled 2022-09-10 COVID-19 VACCINE (3 - Me [facility] Test 15:06:53 Booster for Pfizer series) [code = COVID-19 VACCINE (3 - Booster for Pfizer series)] Future Scheduled 2022-09-10 65+ [facility]CCAL [facility] Test 15:06:53 VACCINE (4 - PPSV23 if available, else PCV20) [code = 65+ PNEUMOCOCCAL VACCINE (4 - PPSV23 if available, else PCV20)] Future Scheduled 2022-09-10 INFLUENZA VACCINE Method [facility] Test 15:06:53 [code = INFLUENZA VACCINE] Future Scheduled 2022-09-10 SHINGLES VACCINES (1 Met [facility] Test 15:06:53 of 2) [code = SHINGLES VACCINES (1 of 2)] Future Scheduled 2022-09-10 BREAST CANCER [facility] Test 15:06:53 SCREENING [code = BREAST CANCER SCREENING] Future Scheduled 2022-09-10 COLONOSCOPY SCREENING [facility] Test 15:06:53 [code = COLONOSCOPY SCREENING] Future Scheduled 2022-09-10 HEPATITIS B VACCINES Met [facility] Test 15:06:53 (1 of 3 - Risk 3-dose series) [code = HEPATITIS B VACCINES (1 of 3 - Risk 3-dose series)] Future Scheduled 2022-09-10 COVID-19 VACCINE (3 - Me [facility] Test 15:06:53 Booster for Pfizer series) [code = COVID-19 VACCINE (3 - Booster for Pfizer series)] Future Scheduled 2022-09-10 65+ [facility]CCAL [facility] Test 15:06:53 VACCINE (4 - PPSV23 if available, else PCV20) [code = 65+ PNEUMOCOCCAL VACCINE (4 - PPSV23 if available, else PCV20)] Future Scheduled 2022-09-10 INFLUENZA VACCINE [facility] Test 15:06:53 [code = INFLUENZA VACCINE] Future Scheduled 2022-09-10 SHINGLES VACCINES (1 Met [facility] Test 15:06:53 of 2) [code = SHINGLES VACCINES (1 of 2)] Future Scheduled 2022-09-10 BREAST CANCER [facility] Test 15:06:53 SCREENING [code = BREAST CANCER SCREENING] Future Scheduled 2022-09-10 COLONOSCOPY SCREENING [facility] Test 15:06:53 [code = COLONOSCOPY SCREENING] Future Scheduled 2022-09-10 HEPATITIS B VACCINES Met [facility] Test 15:06:53 (1 of 3 - Risk 3-dose series) [code = HEPATITIS B VACCINES (1 of 3 - Risk 3-dose series)] Future Scheduled 2022-09-10 COVID-19 VACCINE (3 - [facility] Test 15:06:53 Booster for Pfizer series) [code = COVID-19 VACCINE (3 - Booster for Pfizer series)] Future Scheduled 2022-09-10 65+ [facility]CCAL [facility] Test 15:06:53 VACCINE (4 - PPSV23 if available, else PCV20) [code = 65+ PNEUMOCOCCAL VACCINE (4 - PPSV23 if available, else PCV20)] Future Scheduled 2022-09-10 INFLUENZA VACCINE [facility] Test 15:06:53 [code = INFLUENZA VACCINE] Future Scheduled 2022-08-26 SHINGLES VACCINES (1 Met [facility] Test 14:43:48 of 2) [code = SHINGLES VACCINES (1 of 2)] Future Scheduled 2022-08-26 BREAST CANCER [facility] Test 14:43:48 SCREENING [code = BREAST CANCER SCREENING] Future Scheduled 2022-08-26 COLONOSCOPY SCREENING [facility] Test 14:43:48 [code = COLONOSCOPY SCREENING] Future Scheduled 2022-08-26 HEPATITIS B VACCINES Met [facility] Test 14:43:48 (1 of 3 - Risk 3-dose series) [code = HEPATITIS B VACCINES (1 of 3 - Risk 3-dose series)] Future Scheduled 2022-08-26 COVID-19 VACCINE (3 - [facility] Test 14:43:48 Booster for Pfizer series) [code = COVID-19 VACCINE (3 - Booster for Pfizer series)] Future Scheduled 2022-08-26 65+ [facility]AL [facility] 14:43:48 VACCINE (4 - PPSV23 if available, else PCV20) [code = 65+ PNEUMOCOCCAL VACCINE (4 - PPSV23 if available, else PCV20)] Future Scheduled 2022-08-26 INFLUENZA VACCINE [facility] Test 14:43:48 [code = INFLUENZA VACCINE] Future Scheduled 2022-08-07 SHINGLES VACCINES (1 Met [facility] Test 23:30:11 of 2) [code = SHINGLES VACCINES (1 of 2)] Future Scheduled 2022-08-07 BREAST CANCER [facility] Test 23:30:11 SCREENING [code = BREAST CANCER SCREENING] Future Scheduled 2022-08-07 COLONOSCOPY SCREENING [facility] Test 23:30:11 [code = COLONOSCOPY SCREENING] Future Scheduled 2022-08-07 HEPATITIS B VACCINES Met [facility] Test 23:30:11 (1 of 3 - Risk 3-dose series) [code = HEPATITIS B VACCINES (1 of 3 - Risk 3-dose series)] Future Scheduled 2022-08-07 COVID-19 VACCINE (3 - [facility] Test 23:30:11 Booster for Pfizer series) [code = COVID-19 VACCINE (3 - Booster for Pfizer series)] Future Scheduled 2022-08-07 65+ [facility]AL [facility] 23:30:11 VACCINE (4 - PPSV23 if available, else PCV20) [code = 65+ PNEUMOCOCCAL VACCINE (4 - PPSV23 if available, else PCV20)] Future Scheduled 2022-08-07 INFLUENZA VACCINE Method [facility] Test 23:30:11 [code = INFLUENZA VACCINE] Future Scheduled 2022-08-07 SHINGLES VACCINES (1 Met [facility] Test 23:30:11 of 2) [code = SHINGLES VACCINES (1 of 2)] Future Scheduled 2022-08-07 BREAST CANCER [facility] Test 23:30:11 SCREENING [code = BREAST CANCER SCREENING] Future Scheduled 2022-08-07 [facility] [facility] 23:30:11 [code = COLONOSCOPY SCREENING] Future Scheduled 2022-08-07 HEPATITIS B VACCINES [facility] Test 23:30:11 (1 of 3 - Risk 3-dose series) [code = HEPATITIS B VACCINES (1 of 3 - Risk 3-dose series)] Future Scheduled 2022-08-07 COVID-19 VACCINE (3 - [facility] Test 23:30:11 Booster for Pfizer series) [code = COVID-19 VACCINE (3 - Booster for Pfizer series)] Future Scheduled 2022-08-07 65+ PNEUMOCOCCAL [facility] Test 23:30:11 VACCINE (4 - PPSV23 if available, else PCV20) [code = 65+ PNEUMOCOCCAL VACCINE (4 - PPSV23 if available, else PCV20)] Future Scheduled 2022-08-07 INFLUENZA VACCINE Method [facility] Test 23:30:11 [code = INFLUENZA VACCINE] Future Scheduled 2022-08-06 SHINGLES VACCINES (1 [facility] Test 15:48:02 of 2) [code = SHINGLES VACCINES (1 of 2)] Future Scheduled 2022-08-06 BREAST CANCER [facility] Test 15:48:02 SCREENING [code = BREAST CANCER SCREENING] Future Scheduled 2022-08-06 COLONOSCOPY SCREENING [facility] Test 15:48:02 [code = COLONOSCOPY SCREENING] Future Scheduled 2022-08-06 HEPATITIS B VACCINES [facility] Test 15:48:02 (1 of 3 - Risk 3-dose series) [code = HEPATITIS B VACCINES (1 of 3 - Risk 3-dose series)] Future Scheduled 2022-08-06 COVID-19 VACCINE (3 - [facility] Test 15:48:02 Booster for Pfizer series) [code = COVID-19 VACCINE (3 - Booster for Pfizer series)] Future Scheduled 2022-08-06 65+ [facility] VACCINE (4 - PPSV23 if available, else PCV20) [code = 65+ PNEUMOCOCCAL VACCINE (4 - PPSV23 if available, else PCV20)] Future Scheduled 2022-08-06 INFLUENZA VACCINE Method [facility] Test 15:48:02 [code = INFLUENZA VACCINE] Future Scheduled 2022-06-11 SHINGLES VACCINES (1 [facility] Test 16:10:12 of 2) [code = SHINGLES VACCINES (1 of 2)] Future Scheduled 2022-06-11 BREAST CANCER [facility] Test 16:10:12 SCREENING [code = BREAST CANCER SCREENING] Future Scheduled 2022-06-11 COLONOSCOPY SCREENING [facility] Test 16:10:12 [code = COLONOSCOPY SCREENING] Future Scheduled 2022-06-11 HEPATITIS B VACCINES [facility] Test 16:10:12 (1 of 3 - Risk 3-dose series) [code = HEPATITIS B VACCINES (1 of 3 - Risk 3-dose series)] Future Scheduled 2022-06-11 COVID-19 VACCINE (3 - [facility] Test 16:10:12 Booster for Pfizer series) [code = COVID-19 VACCINE (3 - Booster for Pfizer series)] Future Scheduled 2022-06-11 65[facility] 16:10:12 VACCINE (4 - PPSV23 if available, else PCV20) [code = 65+ PNEUMOCOCCAL VACCINE (4 - PPSV23 if available, else PCV20)] Future Scheduled 2022-06-11 [facility]ZA VACCINE [facility] 16:10:12 [code = INFLUENZA VACCINE] Future Scheduled 2022-06-11 SHINGLES VACCINES (1 [facility] Test 16:10:12 of 2) [code = SHINGLES VACCINES (1 of 2)] Future Scheduled 2022-06-11 BREAST CANCER [facility] Test 16:10:12 SCREENING [code = BREAST CANCER SCREENING] Future Scheduled 2022-06-11 COLONOSCOPY SCREENING [facility] Test 16:10:12 [code = COLONOSCOPY SCREENING] Future Scheduled 2022-06-11 HEPATITIS B VACCINES [facility] Test 16:10:12 (1 of 3 - Risk 3-dose series) [code = HEPATITIS B VACCINES (1 of 3 - Risk 3-dose series)] Future Scheduled 2022-06-11 COVID-19 VACCINE (3 - [facility] Test 16:10:12 Booster for Pfizer series) [code = COVID-19 VACCINE (3 - Booster for Pfizer series)] Future Scheduled 2022-06-11 65+ [facility] 16:10:12 VACCINE (4 - PPSV23 if available, else PCV20) [code = 65+ PNEUMOCOCCAL VACCINE (4 - PPSV23 if available, else PCV20)] Future Scheduled 2022-06-11 INFLUENZA VACCINE [facility] 16:10:12 [code = INFLUENZA VACCINE] Future Scheduled 2022-06-11 SHINGLES VACCINES (1 [facility] Test 16:10:12 of 2) [code = SHINGLES VACCINES (1 of 2)] Future Scheduled 2022-06-11 BREAST CANCER [facility] Test 16:10:12 SCREENING [code = BREAST CANCER SCREENING] Future Scheduled 2022-06-11 COLONOSCOPY SCREENING Me [facility] Test 16:10:12 [code = COLONOSCOPY SCREENING] Future Scheduled 2022-06-11 HEPATITIS B VACCINES [facility] Test 16:10:12 (1 of 3 - Risk 3-dose series) [code = HEPATITIS B VACCINES (1 of 3 - Risk 3-dose series)] Future Scheduled 2022-06-11 COVID-19 VACCINE (3 - [facility] Test 16:10:12 Booster for Pfizer series) [code = COVID-19 VACCINE (3 - Booster for Pfizer series)] Future Scheduled 2022-06-11 65+ [facility] 16:10:12 VACCINE (4 - PPSV23 if available, else PCV20) [code = 65+ PNEUMOCOCCAL VACCINE (4 - PPSV23 if available, else PCV20)] Future Scheduled 2022-06-11 INFLUENZA VACCINE [facility] 16:10:12 [code = INFLUENZA VACCINE] Future Scheduled 2022-06-11 SHINGLES VACCINES (1 [facility] Test 16:10:12 of 2) [code = SHINGLES VACCINES (1 of 2)] Future Scheduled 2022-06-11 BREAST CANCER [facility] Test 16:10:12 SCREENING [code = BREAST CANCER SCREENING] Future Scheduled 2022-06-11 COLONOSCOPY SCREENING [facility] 16:10:12 [code = COLONOSCOPY SCREENING] Future Scheduled 2022-06-11 HEPATITIS B VACCINES [facility] Test 16:10:12 (1 of 3 - Risk 3-dose series) [code = HEPATITIS B VACCINES (1 of 3 - Risk 3-dose series)] Future Scheduled 2022-06-11 COVID-19 VACCINE (3 - [facility] Test 16:10:12 Booster for Pfizer series) [...] Future Scheduled 2022-06-11 SHINGLES VACCINES (1 [facility] Test 16:10:12 of 2) [code = SHINGLES VACCINES (1 of 2)] Future Scheduled 2022-06-11 BREAST CANCER [facility] Test 16:10:12 SCREENING [code = BREAST CANCER SCREENING] Future Scheduled 2022-06-11 COLONOSCOPY SCREENING [facility] 16:10:12 [code = COLONOSCOPY SCREENING] Future Scheduled 2022-06-11 HEPATITIS B VACCINES [facility] Test 16:10:12 (1 of 3 - Risk 3-dose series) [code = HEPATITIS B VACCINES (1 of 3 - Risk 3-dose series)] Future Scheduled 2022-06-11 COVID-19 VACCINE (3 - Me [facility] Test 16:10:12 Booster for Pfizer series) [code = COVID-19 VACCINE (3 - Booster for Pfizer series)] Future Scheduled 2022-06-11 65+ PNEUMOCOCCAL [facility] Test 16:10:12 VACCINE (4 - PPSV23 if available, else PCV20) [code = 65+ PNEUMOCOCCAL VACCINE (4 - PPSV23 if available, else PCV20)] Future Scheduled 2022-06-11 INFLUENZA VACCINE [facility] 16:10:12 [code = INFLUENZA VACCINE] Future Scheduled 2022-06-11 SHINGLES VACCINES (1 [facility] Test 16:10:12 of 2) [code = SHINGLES VACCINES (1 of 2)] Future Scheduled 2022-06-11 BREAST CANCER [facility] Test 16:10:12 SCREENING [code = BREAST CANCER SCREENING] Future Scheduled 2022-06-11 COLONOSCOPY SCREENING [facility] 16:10:12 [code = COLONOSCOPY SCREENING] Future Scheduled 2022-06-11 HEPATITIS B VACCINES [facility] Test 16:10:12 (1 of 3 - Risk 3-dose series) [code = HEPATITIS B VACCINES (1 of 3 - Risk 3-dose series)] Future Scheduled 2022-06-11 COVID-19 VACCINE (3 - Me [facility] Test 16:10:12 Booster for Pfizer series) [code = COVID-19 VACCINE (3 - Booster for Pfizer series)] Future Scheduled 2022-06-11 65+ [facility]:10[facility]12 VACCINE (4 - PPSV23 if available, else PCV20) [code = 65+ PNEUMOCOCCAL VACCINE (4 - PPSV23 if available, else PCV20)] Future Scheduled 2022-06-11 INFLUENZA VACCINE Method [facility] Test 16:10:12 [code = INFLUENZA VACCINE] Future Scheduled 2022-06-11 SHINGLES VACCINES (1 [facility] Test 16:10:12 of 2) [code = SHINGLES VACCINES (1 of 2)] Future Scheduled 2022-06-11 BREAST CANCER [facility] Test 16:10:12 SCREENING [code = BREAST CANCER SCREENING] Future Scheduled 2022-06-11 COLONOSCOPY SCREENING [facility] 16:10:12 [code = COLONOSCOPY SCREENING] Future Scheduled 2022-06-11 HEPATITIS B VACCINES [facility] Test 16:10:12 (1 of 3 - Risk 3-dose series) [code = HEPATITIS B VACCINES (1 of 3 - Risk 3-dose series)] Future Scheduled 2022-06-11 COVID-19 VACCINE (3 - Me [facility] Test 16:10:12 Booster for Pfizer series) [code = COVID-19 VACCINE (3 - Booster for Pfizer series)] Future Scheduled 2022-06-11 65+ [facility] 16:10:12 VACCINE (4 - PPSV23 if available, else PCV20) [code = 65+ PNEUMOCOCCAL VACCINE (4 - PPSV23 if available, else PCV20)] Future Scheduled 2022-06-11 INFLUENZA VACCINE [facility] 16:10:12 [code = INFLUENZA VACCINE] Future Scheduled 2022-06-11 SHINGLES VACCINES (1 [facility] Test 16:10:12 of 2) [code = SHINGLES VACCINES (1 of 2)] Future Scheduled 2022-06-11 BREAST CANCER [facility] Test 16:10:12 SCREENING [code = BREAST CANCER SCREENING] Future Scheduled 2022-06-11 COLONOSCOPY SCREENING [facility] 16:10:12 [code = COLONOSCOPY SCREENING] Future Scheduled 2022-06-11 HEPATITIS B VACCINES [facility] Test 16:10:12 (1 of 3 - Risk 3-dose series) [code = HEPATITIS B VACCINES (1 of 3 - Risk 3-dose series)] Future Scheduled 2022-06-11 COVID-19 VACCINE (3 - [facility] Test 16:10:12 Booster for Pfizer series) [code = COVID-19 VACCINE (3 - Booster for Pfizer series)] Future Scheduled 2022-06-11 65+ [facility] 16:10:12 VACCINE (4 - PPSV23 if available, else PCV20) [code = 65+ PNEUMOCOCCAL VACCINE (4 - PPSV23 if available, else PCV20)] Future Scheduled 2022-06-11 INFLUENZA VACCINE [facility] 16:10:12 [code = INFLUENZA VACCINE] Future Scheduled 2022-06-11 SHINGLES VACCINES (1 [facility] Test 16:10:12 of 2) [code = SHINGLES VACCINES (1 of 2)] Future Scheduled 2022-06-11 BREAST CANCER [facility] Test 16:10:12 SCREENING [code = BREAST CANCER SCREENING] Future Scheduled 2022-06-11 COLONOSCOPY SCREENING [facility] 16:10:12 [code = COLONOSCOPY SCREENING] Future Scheduled 2022-06-11 HEPATITIS B VACCINES [facility] Test 16:10:12 (1 of 3 - Risk 3-dose series) [code = HEPATITIS B VACCINES (1 of 3 - Risk 3-dose series)] Future Scheduled 2022-06-11 COVID-19 VACCINE (3 - [facility] 16:10:12 Booster for Pfizer series) [code = COVID-19 VACCINE (3 - Booster for Pfizer series)] Future Scheduled 2022-06-11 65+ [facility] 16:10[facility]12 VACCINE (4 - PPSV23 if available, else PCV20) [code = 65+ PNEUMOCOCCAL VACCINE (4 - PPSV23 if available, else PCV20)] Future Scheduled 2022-06-11 INFLUENZA VACCINE [facility] 16:10:12 [code = INFLUENZA VACCINE] Future Scheduled 2022-05-10 SHINGLES VACCINES (1 [facility] Test 10:21:35 of 2) [code = SHINGLES VACCINES (1 of 2)] Future Scheduled 2022-05-10 BREAST CANCER [facility] Test 10:21:35 SCREENING [code = BREAST CANCER SCREENING] Future Scheduled 2022-05-10 COLONOSCOPY SCREENING [facility] 10:21:35 [code = COLONOSCOPY SCREENING] Future Scheduled 2022-05-10 HEPATITIS B VACCINES [facility] Test 10:21:35 (1 of 3 - Risk 3-dose series) [code = HEPATITIS B VACCINES (1 of 3 - Risk 3-dose series)] Future Scheduled 2022-05-10 COVID-19 VACCINE (3 - [facility] Test 10:21:35 Booster for Pfizer series) [code = COVID-19 VACCINE (3 - Booster for Pfizer series)] Future Scheduled 2022-05-10 65[facility] 10:21:35 VACCINE (4 - PPSV23 if available, else PCV20) [code = 65+ PNEUMOCOCCAL VACCINE (4 - PPSV23 if available, else PCV20)] Future Scheduled 2022-05-10 INFLUENZA VACCINE [facility] 10:21:35 [code = INFLUENZA VACCINE] Future Scheduled 2022-05-10 SHINGLES VACCINES (1 [facility] Test 10:21:35 of 2) [code = SHINGLES VACCINES (1 of 2)] Future Scheduled 2022-05-10 BREAST CANCER [facility] Test 10:21:35 SCREENING [code = BREAST CANCER SCREENING] Future Scheduled 2022-05-10 COLONOSCOPY SCREENING [facility] 10:21:35 [code = COLONOSCOPY SCREENING] Future Scheduled 2022-05-10 HEPATITIS B VACCINES [facility] Test 10:21:35 (1 of 3 - Risk 3-dose series) [code = HEPATITIS B VACCINES (1 of 3 - Risk 3-dose series)] Future Scheduled 2022-05-10 COVID-19 VACCINE (3 - [facility] Test 10:21:35 Booster for Pfizer series) [code = COVID-19 VACCINE (3 - Booster for Pfizer series)] Future Scheduled 2022-05-10 65+ [facility] 10:21:35 VACCINE (4 - PPSV23 if available, else PCV20) [code = 65+ PNEUMOCOCCAL VACCINE (4 - PPSV23 if available, else PCV20)] Future Scheduled 2022-05-10 INFLUENZA VACCINE [facility] 10:21:35 [code = INFLUENZA VACCINE] Future Scheduled 2022-05-06 SHINGLES VACCINES (1 [facility] Test 14:03:13 of 2) [code = SHINGLES VACCINES (1 of 2)] Future Scheduled 2022-05-06 BREAST CANCER [facility] Test 14:03:13 SCREENING [code = BREAST CANCER SCREENING] Future Scheduled 2022-05-06 COLONOSCOPY SCREENING [facility] Test 14:03:13 [code = COLONOSCOPY SCREENING] Future Scheduled 2022-05-06 HEPATITIS B VACCINES [facility] Test 14:03:13 (1 of 3 - Risk 3-dose series) [code = HEPATITIS B VACCINES (1 of 3 - Risk 3-dose series)] Future Scheduled 2022-05-06 COVID-19 VACCINE (3 - [facility] Test 14:03:13 Booster for Pfizer series) [code = COVID-19 VACCINE (3 - Booster for Pfizer series)] Future Scheduled 2022-05-06 65+ PNEUMOCOCCAL [facility] Test 14:03:13 VACCINE (4 - PPSV23 if available, else PCV20) [code = 65+ PNEUMOCOCCAL VACCINE (4 - PPSV23 if available, else PCV20)] Future Scheduled 2022-05-06 INFLUENZA VACCINE Method [facility] Test 14:03:13 [code = INFLUENZA VACCINE] Future Scheduled 2022-04-30 SHINGLES VACCINES (1 [facility] Test 01:07:32 of 2) [code = SHINGLES VACCINES (1 of 2)] Future Scheduled 2022-04-30 BREAST CANCER [facility] Test 01:07:32 SCREENING [code = BREAST CANCER SCREENING] Future Scheduled 2022-04-30 COLONOSCOPY SCREENING [facility] 01:07:32 [code = COLONOSCOPY SCREENING] Future Scheduled 2022-04-30 HEPATITIS B VACCINES [facility] Test 01:07:32 (1 of 3 - Risk 3-dose series) [code = HEPATITIS B VACCINES (1 of 3 - Risk 3-dose series)] Future Scheduled 2022-04-30 COVID-19 VACCINE (3 - [facility] 01:07:32 Booster for Pfizer series) [code = COVID-19 VACCINE (3 - Booster for Pfizer series)] Future Scheduled 2022-04-30 65+ PNEUMOCOCCAL [facility] Test 01:07:32 VACCINE (4 - PPSV23 if available, else PCV20) [code = 65+ PNEUMOCOCCAL VACCINE (4 - PPSV23 if available, else PCV20)] Future Scheduled 2022-04-30 INFLUENZA VACCINE Method [facility] Test 01:07:32 [code = INFLUENZA VACCINE] Future Scheduled 2022-04-30 SHINGLES VACCINES (1 [facility] Test 01:07:32 of 2) [code = SHINGLES VACCINES (1 of 2)] Future Scheduled 2022-04-30 BREAST CANCER [facility] Test 01:07:32 SCREENING [code = BREAST CANCER SCREENING] Future Scheduled 2022-04-30 COLONOSCOPY SCREENING [facility] 01:07:32 [code = COLONOSCOPY SCREENING] Future Scheduled 2022-04-30 HEPATITIS B VACCINES [facility] Test 01:07:32 (1 of 3 - Risk 3-dose series) [code = HEPATITIS B VACCINES (1 of 3 - Risk 3-dose series)] Future Scheduled 2022-04-30 COVID-19 VACCINE (3 - [facility] Test 01:07:32 Booster for Pfizer series) [code = COVID-19 VACCINE (3 - Booster for Pfizer series)] Future Scheduled 2022-04-30 65+ [facility] 01:07:32 VACCINE (4 - PPSV23 if available, else PCV20) [code = 65+ PNEUMOCOCCAL VACCINE (4 - PPSV23 if available, else PCV20)] Future Scheduled 2022-04-30 INFLUENZA VACCINE Method [facility] Test 01:07:32 [code = INFLUENZA VACCINE] Future Scheduled 2022-04-30 SHINGLES VACCINES (1 [facility] Test 01:07:32 of 2) [code = SHINGLES VACCINES (1 of 2)] Future Scheduled 2022-04-30 BREAST CANCER [facility] Test 01:07:32 SCREENING [code = BREAST CANCER SCREENING] Future Scheduled 2022-04-30 COLONOSCOPY SCREENING [facility] 01:07:32 [code = COLONOSCOPY SCREENING] Future Scheduled 2022-04-30 HEPATITIS B VACCINES [facility] Test 01:07:32 (1 of 3 - Risk 3-dose series) [code = HEPATITIS B VACCINES (1 of 3 - Risk 3-dose series)] Future Scheduled 2022-04-30 COVID-19 VACCINE (3 - Me [facility] Test 01:07:32 Booster for Pfizer series) [code = COVID-19 VACCINE (3 - Booster for Pfizer series)] Future Scheduled 2022-04-30 65+ [facility] 01:07:32 VACCINE (4 - PPSV23 if available, else PCV20) [code = 65+ PNEUMOCOCCAL VACCINE (4 - PPSV23 if available, else PCV20)] Future Scheduled 2022-04-30 INFLU[facility]ZA VACCINE [facility] 01:07:32 [code = INFLUENZA VACCINE] Future Scheduled 2022-04-25 SHINGLES VACCINES (1 [facility] Test 01:45:02 of 2) [code = SHINGLES VACCINES (1 of 2)] Future Scheduled 2022-04-25 BREAST CANCER [facility] Test 01:45:02 SCREENING [code = BREAST CANCER SCREENING] Future Scheduled 2022-04-25 COLONOSCOPY SCREENING [facility] 01:45:02 [code = COLONOSCOPY SCREENING] Future Scheduled 2022-04-25 HEPATITIS B VACCINES [facility] Test 01:45:02 (1 of 3 - Risk 3-dose series) [code = HEPATITIS B VACCINES (1 of 3 - Risk 3-dose series)] Future Scheduled 2022-04-25 COVID-19 VACCINE (3 - [facility] Test 01:45:02 Booster for Pfizer series) [code = COVID-19 VACCINE (3 - Booster for Pfizer series)] Future Scheduled 2022-04-25 65+ [facility] 01:45:02 VACCINE (4 - PPSV23 if available, else PCV20) [code = 65+ PNEUMOCOCCAL VACCINE (4 - PPSV23 if available, else PCV20)] Future Scheduled 2022-04-25 INFLUENZA VACCINE [facility] 01:45:02 [code = INFLUENZA VACCINE] Future Scheduled 2022-03-25 SHINGLES VACCINES (1 [facility] Test 14:48:42 of 2) [code = SHINGLES VACCINES (1 of 2)] Future Scheduled 2022-03-25 BREAST CANCER [facility] Test 14:48:42 SCREENING [code = BREAST CANCER SCREENING] Future Scheduled 2022-03-25 COLONOSCOPY SCREENING [facility] Test 14:48:42 [code = COLONOSCOPY SCREENING] Future Scheduled 2022-03-25 HEPATITIS B VACCINES [facility] Test 14:48:42 (1 of 3 - Risk 3-dose series) [code = HEPATITIS B VACCINES (1 of 3 - Risk 3-dose series)] Future Scheduled 2022-03-25 COVID-19 VACCINE (3 - [facility] Test 14:48:42 Booster for Pfizer series) [code = COVID-19 VACCINE (3 - Booster for Pfizer series)] Future Scheduled 2022-03-25 65[facility] 14:48:42 VACCINE (4 - PPSV23 if available, else PCV20) [code = 65+ PNEUMOCOCCAL VACCINE (4 - PPSV23 if available, else PCV20)] Future Scheduled 2022-03-25 INFLUENZA VACCINE [facility] 14:48:42 [code = INFLUENZA VACCINE] Future Scheduled 2022-03-25 SHINGLES VACCINES (1 [facility] Test 14:48:42 of 2) [code = SHINGLES VACCINES (1 of 2)] Future Scheduled 2022-03-25 BREAST CANCER [facility] Test 14:48:42 SCREENING [code = BREAST CANCER SCREENING] Future Scheduled 2022-03-25 COLONOSCOPY SCREENING [facility] 14:48:42 [code = COLONOSCOPY SCREENING] Future Scheduled 2022-03-25 HEPATITIS B VACCINES [facility] Test 14:48:42 (1 of 3 - Risk 3-dose series) [code = HEPATITIS B VACCINES (1 of 3 - Risk 3-dose series)] Future Scheduled 2022-03-25 COVID-19 VACCINE (3 - [facility] Test 14:48:42 Booster for Pfizer series) [code = COVID-19 VACCINE (3 - Booster for Pfizer series)] Future Scheduled 2022-03-25 65[facility] 14:48:42 VACCINE (4 - PPSV23 if available, else PCV20) [code = 65+ PNEUMOCOCCAL VACCINE (4 - PPSV23 if available, else PCV20)] Future Scheduled 2022-03-25 INFLUENZA VACCINE [facility] 14:48:42 [code = INFLUENZA VACCINE] Future Scheduled 2022-03-25 SHINGLES VACCINES (1 [facility] Test 14:48:42 of 2) [code = SHINGLES VACCINES (1 of 2)] Future Scheduled 2022-03-25 BREAST CANCER [facility] Test 14:48:42 SCREENING [code = BREAST CANCER SCREENING] Future Scheduled 2022-03-25 COLONOSCOPY SCREENING [facility] 14:48:42 [code = COLONOSCOPY SCREENING] Future Scheduled 2022-03-25 HEPATITIS B VACCINES [facility] Test 14:48:42 (1 of 3 - Risk 3-dose series) [code = HEPATITIS B VACCINES (1 of 3 - Risk 3-dose series)] Future Scheduled 2022-03-25 COVID-19 VACCINE (3 - [facility] Test 14:48:42 Booster for Pfizer series) [code = COVID-19 VACCINE (3 - Booster for Pfizer series)] Future Scheduled 2022-03-25 65+ [facility] 14:48:42 VACCINE (4 - PPSV23 if available, else PCV20) [code = 65+ PNEUMOCOCCAL VACCINE (4 - PPSV23 if available, else PCV20)] Future Scheduled 2022-03-25 INFLUENZA VACCINE Method [facility] Test 14:48:42 [code = INFLUENZA VACCINE] Future Scheduled 2022-03-25 SHINGLES VACCINES (1 [facility] Test 14:48:42 of 2) [code = SHINGLES VACCINES (1 of 2)] Future Scheduled 2022-03-25 BREAST CANCER [facility] Test 14:48:42 SCREENING [code = BREAST CANCER SCREENING] Future Scheduled 2022-03-25 COLONOSCOPY SCREENING [facility] 14:48:42 [code = COLONOSCOPY SCREENING] Future Scheduled 2022-03-25 HEPATITIS B VACCINES [facility] Test 14:48:42 (1 of 3 - Risk 3-dose series) [code = HEPATITIS B VACCINES (1 of 3 - Risk 3-dose series)] Future Scheduled 2022-03-25 COVID-19 VACCINE (3 - [facility] Test 14:48:42 Booster for Pfizer series) [code = COVID-19 VACCINE (3 - Booster for Pfizer series)] Future Scheduled 2022-03-25 65+ [facility] 14:48:42 VACCINE (4 - PPSV23 if available, else PCV20) [code = 65+ PNEUMOCOCCAL VACCINE (4 - PPSV23 if available, else PCV20)] Future Scheduled 2022-03-25 INFLUENZA VACCINE [facility] 14:48:42 [code = INFLUENZA VACCINE] Future Scheduled 2022-03-25 SHINGLES VACCINES (1 [facility] Test 14:48:42 of 2) [code = SHINGLES VACCINES (1 of 2)] Future Scheduled 2022-03-25 BREAST CANCER [facility] Test 14:48:42 SCREENING [code = BREAST CANCER SCREENING] Future Scheduled 2022-03-25 COLONOSCOPY SCREENING [facility] Test 14:48:42 [code = COLONOSCOPY SCREENING] Future Scheduled 2022-03-25 HEPATITIS B VACCINES [facility] Test 14:48:42 (1 of 3 - Risk 3-dose series) [code = HEPATITIS B VACCINES (1 of 3 - Risk 3-dose series)] Future Scheduled 2022-03-25 COVID-19 VACCINE (3 - Me [facility] Test 14:48:42 Booster for Pfizer series) [code = COVID-19 VACCINE (3 - Booster for Pfizer series)] Future Scheduled 2022-03-25 65+ [facility] Test 14:48:42 VACCINE (4 - PPSV23 if available, else PCV20) [code = 65+ PNEUMOCOCCAL VACCINE (4 - PPSV23 if available, else PCV20)] Future Scheduled 2022-03-25 INFLUENZA VACCINE [facility] Test 14:48:42 [code = INFLUENZA VACCINE] Future Scheduled 2022-03-25 SHINGLES VACCINES (1 [facility] Test 14:48:42 of 2) [code = SHINGLES VACCINES (1 of 2)] Future Scheduled 2022-03-25 BREAST CANCER [facility] Test 14:48:42 SCREENING [code = BREAST CANCER SCREENING] Future Scheduled 2022-03-25 COLONOSCOPY SCREENING [facility] Test 14:48:42 [code = COLONOSCOPY SCREENING] Future Scheduled 2022-03-25 HEPATITIS B VACCINES [facility] Test 14:48:42 (1 of 3 - Risk 3-dose series) [code = HEPATITIS B VACCINES (1 of 3 - Risk 3-dose series)] Future Scheduled 2022-03-25 COVID-19 VACCINE (3 - [facility] Test 14:48:42 Booster for Pfizer series) [code = COVID-19 VACCINE (3 - Booster for Pfizer series)] Future Scheduled 2022-03-25 65+ [facility] Test 14:48:42 VACCINE (4 - PPSV23 if available, else PCV20) [code = 65+ PNEUMOCOCCAL VACCINE (4 - PPSV23 if available, else PCV20)] Future Scheduled 2022-03-25 INFLUENZA VACCINE [facility] Test 14:48:42 [code = INFLUENZA VACCINE] Future Scheduled 2022-03-25 SHINGLES VACCINES (1 [facility] Test 14:48:42 of 2) [code = SHINGLES VACCINES (1 of 2)] Future Scheduled 2022-03-25 BREAST CANCER [facility] Test 14:48:42 SCREENING [code = BREAST CANCER SCREENING] Future Scheduled 2022-03-25 COLONOSCOPY SCREENING Me [facility] Test 14:48:42 [code = COLONOSCOPY SCREENING] Future Scheduled 2022-03-25 HEPATITIS B VACCINES Met [facility] Test 14:48:42 (1 of 3 - Risk 3-dose series) [code = HEPATITIS B VACCINES (1 of 3 - Risk 3-dose series)] Future Scheduled 2022-03-25 COVID-19 VACCINE (3 - Me [facility] Test 14:48:42 Booster for Pfizer series) [code = COVID-19 VACCINE (3 - Booster for Pfizer series)] Future Scheduled 2022-03-25 65+ [facility] 14:48:42 VACCINE (4 - PPSV23 if available, else PCV20) [code = 65+ PNEUMOCOCCAL VACCINE (4 - PPSV23 if available, else PCV20)] Future Scheduled 2022-03-25 INFLUENZA VACCINE [facility] Test 14:48:42 [code = INFLUENZA VACCINE] Future Scheduled 2022-03-25 SHINGLES VACCINES (1 [facility] Test 14:48:42 of 2) [code = SHINGLES VACCINES (1 of 2)] Future Scheduled 2022-03-25 [facility]ER [facility] Test 14:48:42 SCREENING [code = BREAST CANCER SCREENING] Future Scheduled 2022-03-25 COLONOSCOPY SCREENING [facility] Test 14:48:42 [code = COLONOSCOPY SCREENING] Future Scheduled 2022-03-25 HEPATITIS B VACCINES [facility] Test 14:48:42 (1 of 3 - Risk 3-dose series) [code = HEPATITIS B VACCINES (1 of 3 - Risk 3-dose series)] Future Scheduled 2022-03-25 COVID-19 VACCINE (3 - Me [facility] Test 14:48:42 Booster for Pfizer series) [...] Future Scheduled 2022-03-25 SHINGLES VACCINES (1 Met [facility] Test 14:48:42 of 2) [code = SHINGLES VACCINES (1 of 2)] Future Scheduled 2022-03-25 BREAST CANCER [facility] Test 14:48:42 SCREENING [code = BREAST CANCER SCREENING] Future Scheduled 2022-03-25 COLONOSCOPY SCREENING [facility] Test 14:48:42 [code = COLONOSCOPY SCREENING] Future Scheduled 2022-03-25 HEPATITIS B VACCINES [facility] Test 14:48:42 (1 of 3 - Risk 3-dose series) [code = HEPATITIS B VACCINES (1 of 3 - Risk 3-dose series)] Future Scheduled 2022-03-25 COVID-19 VACCINE (3 - [facility] Test 14:48:42 Booster for Pfizer series) [code = COVID-19 VACCINE (3 - Booster for Pfizer series)] Future Scheduled 2022-03-25 65+ PNEUMOCOCCAL [facility] Test 14:48:42 VACCINE (4 - PPSV23 if available, else PCV20) [code = 65+ PNEUMOCOCCAL VACCINE (4 - PPSV23 if available, else PCV20)] Future Scheduled 2022-03-25 IN[facility]ZA VACCINE [facility] Test 14:48:42 [code = INFLUENZA VACCINE] Future Scheduled 2022-03-04 SHINGLES VACCINES (1 [facility] Test 14:03:57 of 2) [code = SHINGLES VACCINES (1 of 2)] Future Scheduled 2022-03-04 BREAST CANCER [facility] Test 14:03:57 SCREENING [code = BREAST CANCER SCREENING] Future Scheduled 2022-03-04 COLONOSCOPY SCREENING [facility] Test 14:03:57 [code = COLONOSCOPY SCREENING] Future Scheduled 2022-03-04 HEPATITIS B VACCINES [facility] Test 14:03:57 (1 of 3 - Risk 3-dose series) [code = HEPATITIS B VACCINES (1 of 3 - Risk 3-dose series)] Future Scheduled 2022-03-04 COVID-19 VACCINE (3 - [facility] Test 14:03:57 Booster for Pfizer series) [code = COVID-19 VACCINE (3 - Booster for Pfizer series)] Future Scheduled 2022-03-04 65+ [facility] Test 14:03:57 VACCINE (4 - PPSV23 if available, else PCV20) [code = 65+ PNEUMOCOCCAL VACCINE (4 - PPSV23 if available, else PCV20)] Future Scheduled 2022-03-04 INFLUENZA VACCINE Method [facility] Test 14:03:57 [code = INFLUENZA VACCINE] Future Scheduled 2022-03-04 SHINGLES VACCINES (1 Met [facility] Test 14:03:57 of 2) [code = SHINGLES VACCINES (1 of 2)] Future Scheduled 2022-03-04 BREAST CANCER [facility] Test 14:03:57 SCREENING [code = BREAST CANCER SCREENING] Future Scheduled 2022-03-04 COLONOSCOPY SCREENING [facility] Test 14:03:57 [code = COLONOSCOPY SCREENING] Future Scheduled 2022-03-04 HEPATITIS B VACCINES [facility] Test 14:03:57 (1 of 3 - Risk 3-dose series) [code = HEPATITIS B VACCINES (1 of 3 - Risk 3-dose series)] Future Scheduled 2022-03-04 COVID-19 VACCINE (3 - [facility] Test 14:03:57 Booster for Pfizer series) [code = COVID-19 VACCINE (3 - Booster for Pfizer series)] Future Scheduled 2022-03-04 65+ PNEUMOCOCCAL [facility] Test 14:03:57 VACCINE (4 - PPSV23 if available, else PCV20) [code = 65+ PNEUMOCOCCAL VACCINE (4 - PPSV23 if available, else PCV20)] Future Scheduled 2022-03-04 INFLUENZA VACCINE Method [facility] Test 14:03:57 [code = INFLUENZA VACCINE] Future Scheduled 2022-03-04 SHINGLES VACCINES (1 Met [facility] Test 14:03:57 of 2) [code = SHINGLES VACCINES (1 of 2)] Future Scheduled 2022-03-04 BREAST CANCER [facility] Test 14:03:57 SCREENING [code = BREAST CANCER SCREENING] Future Scheduled 2022-03-04 COLONOSCOPY SCREENING [facility] Test 14:03:57 [code = COLONOSCOPY SCREENING] Future Scheduled 2022-03-04 HEPATITIS B VACCINES [facility] Test 14:03:57 (1 of 3 - Risk 3-dose series) [code = HEPATITIS B VACCINES (1 of 3 - Risk 3-dose series)] Future Scheduled 2022-03-04 COVID-19 VACCINE (3 - Me [facility] Test 14:03:57 Booster for Pfizer series) [code = COVID-19 VACCINE (3 - Booster for Pfizer series)] Future Scheduled 2022-03-04 65+ [facility] Test 14:03:57 VACCINE (4 - PPSV23 if available, else PCV20) [code = 65+ PNEUMOCOCCAL VACCINE (4 - PPSV23 if available, else PCV20)] Future Scheduled 2022-03-04 INFLUENZA VACCINE Method [facility] Test 14:03:57 [code = INFLUENZA VACCINE] Future Scheduled 2022-03-04 SHINGLES VACCINES (1 [facility] Test 14:03:57 of 2) [code = SHINGLES VACCINES (1 of 2)] Future Scheduled 2022-03-04 BREAST CANCER [facility] Test 14:03:57 SCREENING [code = BREAST CANCER SCREENING] Future Scheduled 2022-03-04 COLONOSCOPY SCREENING [facility] Test 14:03:57 [code = COLONOSCOPY SCREENING] Future Scheduled 2022-03-04 HEPATITIS B VACCINES [facility] Test 14:03:57 (1 of 3 - Risk 3-dose series) [code = HEPATITIS B VACCINES (1 of 3 - Risk 3-dose series)] Future Scheduled 2022-03-04 COVID-19 VACCINE (3 - [facility] Test 14:03:57 Booster for Pfizer series) [code = COVID-19 VACCINE (3 - Booster for Pfizer series)] Future Scheduled 2022-03-04 65+ PNEUMOCOCCAL [facility] Test 14:03:57 VACCINE (4 - PPSV23 if available, else PCV20) [code = 65+ PNEUMOCOCCAL VACCINE (4 - PPSV23 if available, else PCV20)] Future Scheduled 2022-03-04 INFLUENZA VACCINE Method [facility] Test 14:03:57 [code = INFLUENZA VACCINE] Future Scheduled 2022-02-11 SHINGLES VACCINES (1 [facility] Test 13:39:12 of 2) [code = SHINGLES VACCINES (1 of 2)] Future Scheduled 2022-02-11 BREAST CANCER [facility] Test 13:39:12 SCREENING [code = BREAST CANCER SCREENING] Future Scheduled 2022-02-11 COLONOSCOPY SCREENING [facility] Test 13:39:12 [code = COLONOSCOPY SCREENING] Future Scheduled 2022-02-11 HEPATITIS B VACCINES [facility] Test 13:39:12 (1 of 3 - Risk 3-dose series) [code = HEPATITIS B VACCINES (1 of 3 - Risk 3-dose series)] Future Scheduled 2022-02-11 COVID-19 VACCINE (3 - Me [facility] Test 13:39:12 Booster for Pfizer series) [code = COVID-19 VACCINE (3 - Booster for Pfizer series)] Future Scheduled 2022-02-11 65+ PNEUMOCOCCAL [facility] Test 13:39:12 VACCINE (4 - PPSV23 or PCV20) [code = 65+ PNEUMOCOCCAL VACCINE (4 - PPSV23 or PCV20)] Future Scheduled 2022-02-11 INFLUENZA VACCINE Method [facility] Test 13:39:12 [code = INFLUENZA VACCINE] Future Scheduled 2022-01-29 SHINGLES VACCINES (1 Met [facility] Test 14:07:20 of 2) [code = SHINGLES VACCINES (1 of 2)] Future Scheduled 2022-01-29 BREAST CANCER [facility] Test 14:07:20 SCREENING [code = BREAST CANCER SCREENING] Future Scheduled 2022-01-29 COLONOSCOPY SCREENING [facility] Test 14:07:20 [code = COLONOSCOPY SCREENING] Future Scheduled 2022-01-29 HEPATITIS B VACCINES [facility] Test 14:07:20 (1 of 3 - Risk 3-dose series) [code = HEPATITIS B VACCINES (1 of 3 - Risk 3-dose series)] Future Scheduled 2022-01-29 COVID-19 VACCINE (3 - [facility] Test 14:07:20 Booster for Pfizer series) [code = COVID-19 VACCINE (3 - Booster for Pfizer series)] Future Scheduled 2022-01-29 65+ PNEUMOCOCCAL [facility] Test 14:07:20 VACCINE (4 - PPSV23 or PCV20) [code = 65+ PNEUMOCOCCAL VACCINE (4 - PPSV23 or PCV20)] Future Scheduled 2022-01-29 INFLUENZA VACCINE Method [facility] Test 14:07:20 [code = INFLUENZA VACCINE] Future Scheduled 2022-01-29 SHINGLES VACCINES (1 Met [facility] Test 14:07:20 of 2) [code = SHINGLES VACCINES (1 of 2)] Future Scheduled 2022-01-29 BREAST CANCER [facility] Test 14:07:20 SCREENING [code = BREAST CANCER SCREENING] Future Scheduled 2022-01-29 COLONOSCOPY SCREENING [facility] Test 14:07:20 [code = COLONOSCOPY SCREENING] Future Scheduled 2022-01-29 HEPATITIS B VACCINES [facility] Test 14:07:20 (1 of 3 - Risk 3-dose series) [code = HEPATITIS B VACCINES (1 of 3 - Risk 3-dose series)] Future Scheduled 2022-01-29 COVID-19 VACCINE (3 - [facility] Test 14:07:20 Booster for Pfizer series) [code = COVID-19 VACCINE (3 - Booster for Pfizer series)] Future Scheduled 2022-01-29 65+ PNEUMOCOCCAL [facility] Test 14:07:20 VACCINE (4 - PPSV23 or PCV20) [code = 65+ PNEUMOCOCCAL VACCINE (4 - PPSV23 or PCV20)] Future Scheduled 2022-01-29 INFLUENZA VACCINE Method [facility] Test 14:07:20 [code = INFLUENZA VACCINE] Future Scheduled 2022-01-29 SHINGLES VACCINES (1 Met [facility] Test 14:07:20 of 2) [code = SHINGLES VACCINES (1 of 2)] Future Scheduled 2022-01-29 BREAST CANCER [facility] Test 14:07:20 SCREENING [code = BREAST CANCER SCREENING] Future Scheduled 2022-01-29 COLONOSCOPY SCREENING [facility] Test 14:07:20 [code = COLONOSCOPY SCREENING] Future Scheduled 2022-01-29 HEPATITIS B VACCINES [facility] Test 14:07:20 (1 of 3 - Risk 3-dose series) [code = HEPATITIS B VACCINES (1 of 3 - Risk 3-dose series)] Future Scheduled 2022-01-29 COVID-19 VACCINE (3 - [facility] Test 14:07:20 Booster for Pfizer series) [code = COVID-19 VACCINE (3 - Booster for Pfizer series)] Future Scheduled 2022-01-29 65+ PNEUMOCOCCAL [facility] Test 14:07:20 VACCINE (4 - PPSV23 or PCV20) [code = 65+ PNEUMOCOCCAL VACCINE (4 - PPSV23 or PCV20)] Future Scheduled 2022-01-29 INFLUENZA VACCINE Method [facility] Test 14:07:20 [code = INFLUENZA VACCINE] Future Scheduled 2022-01-29 SHINGLES VACCINES (1 Met [facility] Test 14:07:20 of 2) [code = SHINGLES VACCINES (1 of 2)] Future Scheduled 2022-01-29 BREAST CANCER [facility] Test 14:07:20 SCREENING [code = BREAST CANCER SCREENING] Future Scheduled 2022-01-29 COLONOSCOPY SCREENING [facility] Test 14:07:20 [code = COLONOSCOPY SCREENING] Future Scheduled 2022-01-29 HEPATITIS B VACCINES [facility] Test 14:07:20 (1 of 3 - Risk 3-dose series) [code = HEPATITIS B VACCINES (1 of 3 - Risk 3-dose series)] Future Scheduled 2022-01-29 COVID-19 VACCINE (3 - [facility] Test 14:07:20 Booster for Pfizer series) [code = COVID-19 VACCINE (3 - Booster for Pfizer series)] Future Scheduled 2022-01-29 65+ PNEUMOCOCCAL [facility] Test 14:07:20 VACCINE (4 - PPSV23 or PCV20) [code = 65+ PNEUMOCOCCAL VACCINE (4 - PPSV23 or PCV20)] Future Scheduled 2022-01-29 INFLUENZA VACCINE Method [facility] Test 14:07:20 [code = INFLUENZA VACCINE] Future Scheduled 2022-01-20 SHINGLES VACCINES (1 Met [facility] Test 06:12:34 of 2) [code = SHINGLES VACCINES (1 of 2)] Future Scheduled 2022-01-20 Screening for [facility] Test 06:12:34 malignant neoplasm of cervix (procedure) [code = [id number]] Future Scheduled 2022-01-20 BREAST CANCER [facility] Test 06:12:34 SCREENING [code = BREAST CANCER SCREENING] Future Scheduled 2022-01-20 COLONOSCOPY SCREENING [facility] Test 06:12:34 [code = COLONOSCOPY SCREENING] Future Scheduled 2022-01-20 HEPATITIS B VACCINES [facility] Test 06:12:34 (1 of 3 - Risk 3-dose series) [code = HEPATITIS B VACCINES (1 of 3 - Risk 3-dose series)] Future Scheduled 2022-01-20 COVID-19 VACCINE (3 - [facility] Test 06:12:34 Booster for Pfizer series) [code = COVID-19 VACCINE (3 - Booster for Pfizer series)] Future Scheduled 2022-01-20 65+ PNEUMOCOCCAL [facility] Test 06:12:34 VACCINE (4 - PPSV23 or PCV20) [code = 65+ PNEUMOCOCCAL VACCINE (4 - PPSV23 or PCV20)] Future Scheduled 2022-01-20 INFLUENZA VACCINE Method [facility] Test 06:12:34 [code = INFLUENZA VACCINE] Future Scheduled 2022-01-16 SHINGLES VACCINES (1 Met [facility] Test 12:09:25 of 2) [code = SHINGLES VACCINES (1 of 2)] Future Scheduled 2022-01-16 Screening for [facility] Test 12:09:25 malignant neoplasm of cervix (procedure) [code = [id number]] Future Scheduled 2022-01-16 BREAST CANCER [facility] Test 12:09:25 SCREENING [code = BREAST CANCER SCREENING] Future Scheduled 2022-01-16 COLONOSCOPY SCREENING [facility] Test 12:09:25 [code = COLONOSCOPY SCREENING] Future Scheduled 2022-01-16 HEPATITIS B VACCINES [facility] Test 12:09:25 (1 of 3 - Risk 3-dose series) [code = HEPATITIS B VACCINES (1 of 3 - Risk 3-dose series)] Future Scheduled 2022-01-16 COVID-19 VACCINE (3 - [facility] Test 12:09:25 Booster for Pfizer series) [code = COVID-19 VACCINE (3 - Booster for Pfizer series)] Future Scheduled 2022-01-16 65+ PNEUMOCOCCAL [facility] Test 12:09:25 VACCINE (4 - PPSV23 or PCV20) [code = 65+ PNEUMOCOCCAL VACCINE (4 - PPSV23 or PCV20)] Future Scheduled 2022-01-16 [facility] 12:09:25 [code = INFLUENZA VACCINE] Future Scheduled 2022-01-14 SHINGLES VACCINES (1 Met [facility] Test 04:11:46 of 2) [code = SHINGLES VACCINES (1 of 2)] Future Scheduled 2022-01-14 Screening for [facility] Test 04:11:46 malignant neoplasm of cervix (procedure) [code = [id number]] Future Scheduled 2022-01-14 BREAST CANCER [facility] Test 04:11:46 SCREENING [code = BREAST CANCER SCREENING] Future Scheduled 2022-01-14 COLONOSCOPY SCREENING [facility] Test 04:11:46 [code = COLONOSCOPY SCREENING] Future Scheduled 2022-01-14 HEPATITIS B VACCINES [facility] Test 04:11:46 (1 of 3 - Risk 3-dose series) [code = HEPATITIS B VACCINES (1 of 3 - Risk 3-dose series)] Future Scheduled 2022-01-14 COVID-19 VACCINE (3 - [facility] Test 04:11:46 Booster for Pfizer series) [code = COVID-19 VACCINE (3 - Booster for Pfizer series)] Future Scheduled 2022-01-14 65+ PNEUMOCOCCAL [facility] Test 04:11:46 VACCINE (4 - PPSV23 or PCV20) [code = 65+ PNEUMOCOCCAL VACCINE (4 - PPSV23 or PCV20)] Future Scheduled 2022-01-14 [facility]INE [facility] Test 04:11:46 [code = INFLUENZA VACCINE] Future Scheduled 2021-08-26 Screening for [facility] Test 13:02:23 malignant neoplasm of cervix (procedure) [code = [id number]] Future Scheduled 2021-08-26 BREAST CANCER [facility] Test 13:02:23 SCREENING [code = BREAST CANCER SCREENING] Future Scheduled 2021-08-26 COLONOSCOPY SCREENING [facility] Test 13:02:23 [code = COLONOSCOPY SCREENING] Future Scheduled 2021-08-26 Screening for [facility] Test 13:02:23 malignant neoplasm of lung (procedure) [code = [id number]] Future Scheduled 2021-08-26 SHINGLES VACCINES (#1) [facility] Test 13:02:23 [code = SHINGLES VACCINES (#1)] Future Scheduled 2021-08-26 COVID-19 VACCINE (3 - Me [facility] Test 13:02:23 Pfizer risk 4-dose series) [code = COVID-19 VACCINE (3 - Pfizer risk 4-dose series)] Future Scheduled 2021-08-26 65+ PNEUMOCOCCAL [facility] Test 13:02:23 VACCINE (4 of 4 - PPSV23) [code = 65+ PNEUMOCOCCAL VACCINE (4 of 4 - PPSV23)] Future Scheduled 2021-08-26 [facility]ACCINE [facility] Test 13:02:23 [code = INFLUENZA VACCINE] Encounters Start End Encounter Admission Attending Care Care Encounter Source Date/Time Date/Time Type Type Clinicians Facility Department ID 2022-02-18 Outpatient [place] [id number] [place] 14:30:[address] [place] [address] 2021-07-14 Outpatient PANKAJ, [facility] [id number] [place] 09:[facility] 2021-06-02 Outpatient KINJAL, [facility] [id number] [place] 13:58:59 [facility] 2021-04-28 Outpatient HEMATPOUR, [facility] [id number] [place] 11:21:22 ASH [facility] 2021-03-20 Emergency [facility] [id number] Univers 16:07:40 [facility] 2020-12-12 Outpatient HEMATPOUR, [facility] [id number] [place] 08:16:46 ASH [facility] 2020-10-31 Outpatient HEMATPOUR, [facility] [id number] [place] 09:44:50 ASH [facility] 2020-09-30 Outpatient HEMATPOUR, [facility] [id number] [place] 13:16[facility] 2022-10-06 2022-10-06 Outpatient R EAST, [facility] [id number] Univers 09:30:00 09:30:00 SANTIAGO [facility] 2022-09-26 2022-09-26 Refill [facility], UNIVERSIT [id number] Univers 00:00:00 00:00:00 [facility] [id number] i [id number] [address] 2022-09-03 2022-09-03 Outpatient R [facility] [id number] Univers 11:00:00 11:00:00 [facility] 2022-08-24 2022-08-24 Refill [facility], [id number] Univers 00:00:00 00:00:00 [place] [id number] [facility] [id number] [place] [id number] Medica l .8 [place] 2022-05-20 2022-05-20 Telephone [place], UNIVERSIT [id number] Univers 00:00:00 00:00:00 [facility] [id number] [id number] [address] 2022-05-10 2022-05-10 Emergency X [place], [facility] ERT [id number] Univers 10:30:00 16:31:00 HOME ity [facility] 2022-05-10 2022-05-10 Emergency Gerardo, TRAUMA [id number] Univers 10:30:00 16:31:00 [facility] [id number] [id number] [address] 2022-05-10 2022-05-10 Telephone [facility] [id number] Univers 00:00:00 00:00:00 [facility] [id number] [id number] [id number] [address] 2022-05-08 2022-05-08 Emergency [facility] [id number] Univers 16:18:00 18:42:00 THERESA [facility] 2022-05-08 2022-05-08 Emergency [facility] [id number] Univers 16:18:00 18:42:00 Theresa BULLOCK [id number] [place]y of [id number] [id number] [address] 2022-05-07 2022-05-07 Telephone [facility] [id number] Univers 00:00:00 00:00:00 [facility] [id number] [id number] [id number] [address] 2022-05-06 2022-05-06 Emergency [facility] [id number] Univers 14:13:00 18:19:00 [facility] 2022-05-06 2022-05-06 Emergency [facility] [id number] Univers 14:13:00 18:19:00 Anette BULLOCK [id number] ity of [place] [id number] [address] 2022-05-06 2022-05-06 Telephone JOSÉ ANTONIO Cardenas [id number] Univers 00:00:00 00:00:00 [facility] [id number] [id number] [id number] [address] 2022-04-22 2022-04-22 Emergency X [facility] ERT [id number] Univers 13:55:00 17:00:00 PAULETTE ity of [facility] 2022-04-22 2022-04-22 Emergency [facility] [id number] Univers 13:55:00 17:00:00 Paulette S DENTON [id number] i ty [place] 4[place]2.[place].2.[place] [id number] [address] 2022-04-07 2022-04-07 Outpatient R [facility] [id number] Univers 20:40:00 20:40:00 ATTENDING ity of [facility] 2022-04-07 2022-04-07 Telephone Devin, 1.2.840.3 [id number] Univers 00:00:00 00:00:00 Robbi Hairston 84737.1.1 i ty of 3.104.2.7 [place] .3.739005 Medica l .8 [place] 2022-03-05 2022-03-05 Chief Controller Santiago Cardenas 1.2.840.1 [id number] Univers 13:45:00 14:00:00 Visit [facility] 47254.1.1 ity of 3.104.2.7 [place] .3.976013 Medica l .8 [place] 2022-03-05 2022-03-05 Office JOSÉ ANTONIO Cardenas 1.2.426.850 7870 8469 Univers 13:00:00 13:30:00 Visit [facility] 350.1.13.10 i ty of [place] [phone] [address] 2022-03-05 2022-03-05 Outpatient R [facility] [id number] Univers 13:00:00 13:00:00 SANTIAGO [facility] 2022-02-26 2022-02-26 Outpatient R [facility] [id number] Univers 08:30:00 08:30:00 [facility]AGO [facility] 2022-02-26 2022-02-26 Outpatient R [facility] [id number] Univers 08:30:00 08:30:00 [facility] 2022-02-17 2022-02-17 Transition Stevo, 1.2.840.3 [id number] Univers 00:00:00 00:00:00 of Care Isaias Maria Elena 16137.1.1 it y of 3.104.2.7 [place] .3.723423 Medica l .8 [place] 2022-02-10 2022-02-16 Inpatient X FRANK [facility] [id number] Univers 22:59:00 19:27:00 TOMY barbosa [facility] 2022-02-10 2022-02-16 [facility] Reilly Means 1.2.840.1 [id number] Univers 22:59:00 19:27:00 Encounter Ofe Shields 59778.1.1 ity of [place] 3.[place].2.7 [place] .3.136521 Medica [place] .8 [place] 2022-02-11 2022-02-11 Telephone East, 1.2.840.9 [id number] [id number] Univers 00:00:00 00:00:00 Santiago 50101.1.1 ity of 3.104.2.7 [place] .3.139478 Medica l .8 [place] 2022-02-10 2022-02-10 Travel 1.2.840.1 1.2.903.031 2434 [id number] Univers 00:00:00 00:00:00 79046.1.1 350.1.13.10 ity of 3.104.2.7 4.[place].7.3.698 [place] .3.384131 084.8 Medica l .8 [place] 2022-01-30 2022-01-30 Telephone East, 1.2.840.3 [id number] [id number] Univers 00:00:00 00:00:00 Santiago 82256.1.1 ity of 3.104.2.7 [place] .3.015364 Medica l .8 Branch 2022-01-06 2022-01-06 Orders Doctor FERMIN 1.2.840.114 [id number] Univers 00:00:00 00:00:00 Only Unassigned, JACKELINE 350.1.13.10 ity of [place] [facility] 4.2.7.2.686 Yomi as [phone] [facility] 009 Branch 2021-12-25 2021-12-25 Orders Doctor FERMIN 1.2.840.114 [id number] Univers 00:00:00 00:00:00 Only Unassigned, JACKELINE 350.1.13.10 ity of [place] [facility] 4.2.7.2.686 Yomi as [phone] [facility] 009 [place] 2021-12-12 2021-12-13 Emergency X Bill COLES [facility] ERT [id number] Univers 23:53:00 01:52:00 ity of [facility] 2021-12-12 2021-12-13 Emergency Bill Coles [facility] 1.2.840.114 [id number] Univers 23:53:00 01:52:00 Kiersten KOBE 350.1.13.10 i ty of [place].2.7.2.[place] [phone] [facility] 084 Branch 2021-11-20 2021-11-20 Chief Controller [facility] 1.2.840.114 [id number] Univers 09:45:00 10:00:00 Visit [facility] 350.1.13.10 ity of [place] [phone] [facility] 316 Branch 2021-11-20 2021-11-20 Office [facility] 1.2.524.720 4068 9084 Univers 08:30:00 09:00:00 Visit [facility] 350.1.13.10 i ty [place] [phone] [address] 2021-11-20 2021-11-20 Outpatient R EAST, [facility] [id number] Univers 08:30:00 08:30:00 SANTIAGO barbosa [facility] 2021-11-20 2021-11-20 Outpatient R EAST, [facility] [id number] Univers 08:30:00 08:30:00 SANTIAGO barbosa [facility] 2021-11-20 2021-11-20 Outpatient R EAST, [facility] [id number] Univers 08:30:00 08:30:00 SANTIAGO barbosa [facility] 2021-11-20 2021-11-20 Outpatient R EAST, [facility] [id number] Univers 08:30:00 08:30:00 SANTIAGO [facility] 2021-10-24 2021-10-24 Emergency [facility] [id number] Univers 16:27:00 22:26:00 [facility] 2021-10-24 2021-10-24 [facility] [id number] Univers 16:27:00 22:26:00 [facility] 2021-10-24 2021-10-24 Emergency Reilly Means [facility] 1.2.840. 114 [id number] Univers 16:27:00 22:26:00 [facility] 350.1.13.10 ity [facility] 4.2.7.2.686 [facility] [id number] [address] 2021-10-23 2021-10-24 Emergency [facility] [id number] Univers 20:22:00 02:57:00 CHARITY [facility] 2021-10-23 2021-10-24 Emergency [facility] 1.2.995.098 6047 [id number] Univers 20:22:00 02:57:00 Charity [facility] 350.1.13.10 ity [facility] 4.2.7.2.686 [facility] [phone] [address] 2021-09-07 2021-09-07 Outpatient R SELF, [facility] [id number] Univers 08:00:00 08:00:00 GADIEL barbosa o f [facility] 2021-09-07 2021-09-07 [facility] [id number] Univers 08:00:00 08:00:00 GADIEL barbosa o f [facility] 2021-08-21 2021-08-21 Outpatient R [facility] [id number] Univers 10:45:00 10:45:00 SANTIAGO charlie [facility] 2021-08-21 2021-08-21 Chief Controller Santiago Cardenas 1.2.840.1 [id number] Univers 10:45:00 10:45:00 Visit [facility] 69025.1.1 ity of 3.104.2.7 [place] .3.443309 Medica l .8 [place] 2021-08-21 2021-08-21 Office [facility], 1.2.840.3 [id number] Univers 08:30:00 09:00:00 Visit Santiago 32013.1.1 ity of 3.104.2.7 [place] .3.148648 Medica l .8 [place] 2021-08-21 2021-08-21 Office [facility] 1.2.732.090 [id number] 8516 Univers 08:30:00 09:00:00 Visit Santiago [facility] 350.1.13.10 i ty of CL[place] 4[place] [phone] [facility] porfirio 089 [place] 2021-08-21 2021-08-21 Outpatient R [facility] [id number] Univers 08:30:00 08:30:00 SANTIAGO charlie [facility] 2021-08-21 2021-08-21 Travel 1.2.840.1 1.2.272.223 3417 [id number] Univers 00:00:00 00:00:00 72355.1.1 350.1.13.10 ity of 3.104.2.7 4.2.7.3.698 [place] .3.382532 084.8 Medica l .8 [place] 2021-08-14 2021-08-14 Telephone East, 1.2.840.3 [id number] Univers 00:00:00 00:00:00 Santiago 79465.1.1 ity of 3.104.2.7 [place] .3.165870 Medica l .8 Branch 2021-08-13 2021-08-13 Telephone Ronald, 1.2.840.8 [id number] Univers 00:00:00 00:00:00 Santiago 98481.1.1 ity of 3.104.2.7 [place] .3.011897 Medica l .8 Branch 2021-08-11 2021-08-11 Outpatient [facility] [id number] Univers 08:00:00 08:00:00 [facility] 2021-08-05 2021-08-05 Inpatient RAUL Lund, [facility] OUTD [id number] [facility] 05:24:00 05:24:00 Mike 31 [facility] 2021-07-20 2021-07-20 Outpatient [facility] [id number] Univers 10:00:00 10:00:00 [facility] 2021-07-14 2021-07-14 Office Pankaj, UTP 6400 1.2.840.114 13 [id number] [place] 08:45:00 09:34:01 Visit Hollyanishamaria elena [address] 350.1.13.58 Health 9.2.7.2.686 [id number] 1 2021-07-09 2021-07-09 Telephone [place], UTP 6400 1.2.840.114 [id number] [place] 00:00:00 00:00:[address] 350.1.13.58 Health 9.2.7.2.686 [id number] 1 2021-07-09 2021-07-09 Telephone [place], UTP 6400 1.2.840.114 [id number] [place] 00:00:00 00:00:[address] 350.1.13.58 Health 9.2.7.2.686 [id number] 1 2021-07-03 2021-07-03 Outpatient R EAST, [facility] [id number] Univers 08:00:00 08:00:00 SANTIAGO [facility] 2021-06-17 2021-06-17 Inpatient WINTER Leal INTE.02 [id number] [facility] 10:56:00 14:36:00 Mike Villeda [facility] 2021-06-15 2021-06-15 Outpatient R SELF, [facility] [id number] Univers 10:15:00 11:07:21 GADIEL barbosa o clark [facility] 2021-06-15 2021-06-15 Outpatient R SELF, [facility] [id number] Univers 10:15:00 10:15:00 GADIEL vogel [facility] 2021-06-15 2021-06-15 Outpatient R SELF, [facility] [id number] Univers 10:15:00 10:15:00 GADIEL vogel [facility] 2021-06-15 2021-06-15 Orders Doctor 1.2.840.8 [id number] Univers 00:00:00 00:00:00 Only Unassigned, 76893.1.1 ity of [place] 3.104.2.7 [place] .3.284713 Medica l .8 [place] 2021-06-15 2021-06-15 Travel 1.2.840.1 1.2.343.198 9241 [id number] Univers 00:00:00 00:00:00 41138.1.1 350.1.13.10 ity of 3.104.2.7 4.2.7.3.698 [place] .3.842144 084.8 Medica l .8 Branch 2021-06-11 2021-06-11 Refill East, UNIVERSIT 1.2.248.610 2715 9185 Univers 00:00:00 00:00:00 [facility] 350.1.13.10 i ty of CL[place] 4.[place] [phone] [facility] 089 Branch 2021-06-11 2021-06-11 Refill East, 1.2.840.4 [id number] Univers 00:00:00 00:00:00 Santiago 70376.1.1 ity of 3.104.2.7 [place] .3.968430 Medica l .8 Branch 2021-06-05 2021-06-05 Outpatient R EAST, [facility] [id number] Univers 09:00:00 09:00:00 SANTIAGO ity of [facility] 2021-06-02 2021-06-02 Telephone East, UNIVERSIT 1.2.840.114 [id number] Univers 00:00:00 00:00:00 Santiago [facility] 350.1.13.10 i ty of [facility] 4.2.7.2.686 [place] [phone] [facility] porfirio 089 [place] 2021-06-02 2021-06-02 Telephone East, 1.2.840.0 [id number] [id number] Univers 00:00:00 00:00:00 Santiago 37359.1.1 ity of 3.104.2.7 [place] .3.245714 Medica l .8 Branch 2021-05-29 2021-05-29 Telephone East, 1.2.840.9 [id number] [id number] Univers 00:00:00 00:00:00 Santiago 82852.1.1 ity of 3.104.2.7 [place] .3.233054 Medica l .8 Branch 2021-05-29 2021-05-29 Telephone East, 1.2.840.9 [id number] [id number] Univers 00:00:00 00:00:00 Santiago 98214.1.1 ity of 3.104.2.7 [place] .3.911921 Medica l .8 [place] 2021-05-25 2021-05-25 Outpatient R SELF, [facility] [id number] Univers 08:00:00 08:00:00 GADIEL rodas [facility] 2021-04-29 2021-04-29 Outpatient R LALA, [facility] [id number] Univers 08:00:00 08:00:00 NIKOLAI barbosa of [facility] 2021-04-28 2021-04-28 Telephone Hematporay, [facility] 6400 1.2.840.114 [id number] [place] 00:00:00 00:00:[address] 350.1.13.58 Health 9.2.7.2.686 [id number] 1 2021-04-28 2021-04-28 Telephone Jialyn, 1.2.840.5 [id number] 21 [id number] Methodi 00:00:00 00:00:[address] 3.430.2.7 Hospit a .3.979252 l .8 2021-03-31 2021-03-31 Orders Carol Ann, 1.2.840.1 [id number] 21 [id number] Methodi 00:00:00 00:00:00 Only Sarai Lieberman 90380.1.1 979 s t 3.430.2.7 Hospit a .3.331382 l .8 2021-03-30 2021-03-30 Outpatient R RODO [facility] [id number] Univers 08:45:00 08:45:00 GADIEL rodas [facility] 2021-03-24 2021-03-24 Telephone Jailyn, 1.2.840.8 [id number] 21 [id number] Methodi 00:00:00 00:00:[address] 3.430.2.7 Hospit a .3.351666 l .8 2021-02-13 2021-02-13 Telephone Ronald, 1.2.840.5 [id number] 876 [id number] [facility] 00:00:00 00:00:00 Santiago 02625.1.1 ity of 3.104.2.7 [facility]3.343336 Medica l 8 Branch 2021-01-28 2021-01-28 Outpatient R LALA, [facility] [id number] Univers 08:45:00 09:37:00 NIKOLAI barbosa [facility] 2021-01-28 2021-01-28 Travel 1.2.840.1 1.2.930.496 8389 [id number] Univers 00:00:00 00:00:00 46150.1.1 350.1.13.10 ity of 3.104.2.7 4.2.7.3.698 [place] .3.425904 084.8 Medica l .8 Branch 2021-01-19 2021-01-19 Telephone Prabhu, 1.2.840.1 [id number] 2100 035731 Methodi 00:00:00 00:00:[address] 3.430.2.7 Hospit a .3.946426 l .8 2021-01-04 2021-01-04 Letter Shelia, 1.2.840.6 [id number] 696 Univers 00:00:00 00:00:00 (Out) Dagoberto H 20040.1.1 ity of 3.104.2.7 [place] .3.883136 Medica l .8 Branch 2021-01-04 2021-01-04 Letter Shelia, 1.2.840.9 [id number] 02186 696 Univers 00:00:00 00:00:00 (Out) Dagoberto H 16822.1.1 ity of 3.104.2.7 [place] .3.474216 Medica l .8 Branch 2021-01-03 2021-01-03 Dmitry Bass, 1.2.840.0 [id number] 51465 790 Univers 00:00:00 00:00:00 (Out) Dagoberto H 16488.1.1 ity of 3.104.2.7 [place] .3.991927 Medica l .8 Branch 2021-01-03 2021-01-03 Dmitry Bass, 1.2.840.3 [id number] 06617 790 Univers 00:00:00 00:00:00 (Out) Dagoberto H 78837.1.1 ity of 3.104.2.7 [place] .3.943779 Medica l .8 [place] 2021-01-02 2021-01-02 Outpatient R [facility] [id number] Univers 13:40:00 13:40:00 ity of [facility] 2021-01-02 2021-01-02 Laboratory Cuba Franks 1.2.840.1 [id number] Univers 12:14:13 12:57:34 Only Lab, Adc Fam Pob I 15699.1.1 ity of 3.104.2.7 [place] .3.467474 Medica l .8 [place] 2021-01-02 2021-01-02 Laboratory Cuba Franks 1.2.840.1 [id number] [facility] :14:13 12:57:34 Only Lab, Adc Fam Pob I 70971.1.1 ity of 3.104.2.7 [place] .3.042593 Medica l .8 Branch 2021-01-02 2021-01-02 Travel 1.2.840.1 1.2.380.655 4199 2306 Univers 00:00:00 00:00:00 69279.1.1 350.1.13.10 ity of 3.104.2.7 4.2.7.3.698 [place] .3.643012 084.8 Medica l .8 [place] 2021-01-02 2021-01-02 Letter Doctor 1.2.840.9 [id number] 58615 948 Univers 00:00:00 00:00:00 (Out) Unassigned, 39844.1.1 ity of [place] 3.104.2.7 [place] .3.741291 Medica l .8 [place] 2021-01-02 2021-01-02 Letter Doctor 1.2.840.8 [id number] 946 Univers 00:00:00 00:00:00 (Out) Unassigned, 15311.1.1 ity of [place] 3.104.2.7 [place] .3.149270 Medica l .8 Branch 2021-01-02 2021-01-02 Travel 1.2.840.1 1.2.196.155 5649 2306 Univers 00:00:00 00:00:00 58485.1.1 350.1.13.10 ity of 3.104.2.7 4.2.7.3.698 [place] .3.951785 084.8 Medica l .8 Branch 2021-01-02 2021-01-02 Letter Doctor 1.2.840.7 [id number] 21473 948 Univers 00:00:00 00:00:00 (Out) Unassigned, 25382.1.1 ity of [place] 3.104.2.7 [place] .3.247743 Medica l .8 [place] 2021-01-02 2021-01-02 Letter Doctor 1.2.840.3 [id number] 946 Univers 00:00:00 00:00:00 (Out) Unassigned, 56273.1.1 ity of [place] 3.104.2.7 [place] .3.428877 Medica l .8 [place] 2020-12-22 2020-12-22 Telephone Beltran, 1.2.840.0 [id number] 862 52898 Univers 00:00:00 00:00:00 Devina R 29969.1.1 i ty of 3.104.2.7 [place] .3.410786 Medica l .8 [place] 2020-12-22 2020-12-22 Telephone Beltran, 1.2.840.4 [id number] 862 28553 Univers 00:00:00 00:00:00 Amarilissandynda R 50068.1.1 i ty of 3.104.2.7 [place] .3.159676 Medica l .8 [place] 2020-12-12 2020-12-12 Office H[place]pour, UTP 6400 1.2.840.114 12 [id number] [place] 07:42:02 08:18:[address] 350.1.13.58 Health 9.2.7.2.686 [id number] 1 2020-12-12 2020-12-12 Office Hematpour, UTP 6400 1.2.840.114 12 [id number] 07:42:02 08:18:[address] 350.1.13.58 9.2.7.2.686 [id number] 1 2020-12-09 2020-12-09 Telephone Meisenbach, 1.2.840.1 [id number] Methodi 00:00:00 00:00:00 Sarai Lieberman 96479.1.1 316 s t 3.430.2.7 Hospit a .3.435370 l .8 2020-12-08 2020-12-08 [facility], 1.2.840.1 [id number] 2100 054590 Methodi 12:35:54 23:59:00 Encounter Ray [address]604.1.[address] 3.430.2.7 Hospit a .3.441734 l .8 2020-12-08 2020-12-08 [facility], 1.2.840.1 [id number] 94550 63778 Methodi 17:25:00 17:30:[address] 3.430.2.7 Hospit a .3.757694 l .8 2020-12-08 2020-12-08 [facility], 1.2.840.1 [id number] 12822 13495 Methodi 10:30:00 11:39:56 Visit Ray 30870.1.[address] 3.430.2.7 Hospit a .3.885130 l .8 2020-12-08 2020-12-08 Travel 1.2.840.1 1.2.030.725 3714 091632 Methodi 00:00:00 00:00:[address] 3.430.2.7 0.2.7.3.698 Ho spita .3.999859 084.8 l .8 2020-12-02 2020-12-02 Chief Controller Santiago Cardenas 1.2.840.1 [id number] [facility] 10:20:06 10:36:19 Visit [facility] 44924.1.1 ity of 3.104.2.7 [place] .3.309299 Medica l .8 [place] 2020-12-02 2020-12-02 Chief Controller Santiago Cardenas 1.2.840.1 [id number] [facility] 10:20:06 10:36:19 Visit c-Lab 49942.1.1 ity of 3.104.2.7 [place] .3.783328 Medica l .8 [place] 2020-12-02 2020-12-02 Chief Controller [facility] UNIVERSIT 1.2.840.114 8 [id number] 10:20:06 10:36:19 Visit [facility] 350.1.13.10 [facility] 4.2.7.2.686 [id number] [facility] 2020-12-02 2020-12-02 Office Ronald, 1.2.840.3 [id number] 34195 528 Univers 08:31:37 09:01:37 Visit Santiago 17561.1.1 ity of 3.104.2.7 [place] .3.795530 Medica l .8 [place] 2020-12-02 2020-12-02 Outpatient R [facility] [id number] Univers 09:00:00 09:00:00 SANTIAGO ity [facility] 2020-11-25 2020-11-25 Office Devin, 1.2.840.3 [id number] 04160 865 Univers 11:06:30 11:58:14 Visit Robbi Hairston 32518.1.1 i ty of 3.104.2.7 [place] .3.546211 Medica l .8 [place] 2020-11-25 2020-11-25 Office Devin, 1.2.840.4 [id number] 43339 865 Univers 11:06:30 11:58:14 Visit Robbi Hiarston 56312.1.1 i ty of 3.104.2.7 [place] .3.805849 Medica l .8 [place] 2020-11-25 2020-11-25 [facility] 1.2.840.114 [id number] [id number] 11:06:30 11:58:14 Visit Robbi Hairston MAJOR GIFTS DIRECTOR 350.1.13.10 [facility] 4.2.7.2.686 MATERNAL [id number] & CHILD [address] [place] [address] 2020-11-25 2020-11-25 Outpatient R [facility] [id number] Univers 11:00:00 11:00:00 ity [facility] 2020-11-25 2020-11-25 Telephone Devin, 1.2.840.6 [id number] [id number] Univers 00:00:00 00:00:00 Roshunda R 37533.1.1 i ty of 3.104.2.7 [place] .3.762164 Medica l .8 Branch 2020-11-25 2020-11-25 Refill [facility], 1.2.840.0 [id number] 47322 592 Univers 00:00:00 00:00:00 Santiago 61255.1.1 ity of 3.104.2.7 [place] .3.833863 Medica l .8 Branch 2020-11-25 2020-11-25 Travel 1.2.840.1 1.2.044.324 1034 0247 Univers 00:00:00 00:00:00 75400.1.1 350.1.13.10 ity of 3.104.2.7 4.2.7.3.698 [place] .3.140511 084.8 Medica l .8 [place] 2020-11-25 2020-11-25 Orders Doctor 1.2.840.5 [id number] 064 Univers 00:00:00 00:00:00 Only Unassigned, 69621.1.1 ity of [place] 3.104.2.7 [place] .3.609020 Medica l .8 [place] 2020-11-25 2020-11-25 Telephone Beltran, 1.2.840.1 [id number] 855 89368 Univers 00:00:00 00:00:00 Robbi R 60650.1.1 i ty of 3.104.2.7 [place] .3.682656 Medica l .8 [place] 2020-11-25 2020-11-[facility] 1.2.840.2 [id number] 71893 592 Univers 00:00:00 00:00:00 Santiago 49645.1.1 ity of 3.104.2.7 [place] .3.145009 Medica l .8 Branch 2020-11-25 2020-11-25 Travel 1.2.840.1 1.2.765.858 3760 0247 Univers 00:00:00 00:00:00 82725.1.1 350.1.13.10 ity of 3.104.2.7 4.2.7.3.698 [place] .3.848229 084.8 Medica l .8 Branch 2020-11-25 2020-11-25 Orders Doctor 1.2.840.3 [id number] 14155 064 Univers 00:00:00 00:00:00 Only Unassigned, 21027.1.1 ity of [place] 3.104.2.7 [place] .3.618322 Medica l .8 Branch 2020-11-25 2020-11-25 [facility] 1.2.466.217 6539 4592 00:00:00 00:00:00 [facility] 350.1.13.10 [facility] 4.2.7.2.686 [id number] 089 2020-11-25 2020-11-25 Telephone [facility] 1.2.397.238 7243 0821 00:00:00 00:00:00 Robbi Hairston MAJOR GIFTS DIRECTOR 350.1.13.10 [facility] 4.2.7.2.686 MATERNAL [id number] & CHILD [address] [place] [address] 2020-11-14 2020-11-14 Abstract Clark, 1.2.840.1 [id number] [id number] Methodi 00:00:00 00:00:[address] 3.430.2.7 Hospit a .3.428181 l .8 2020-11-14 2020-11-14 Telephone Clark 1.2.840.1 [id number] 2100 [id number] Methodi 00:00:00 00:00:[address] 3.430.2.7 Hospit a .3.000802 l .8 2020-11-12 2020-11-12 Outpatient [facility] [id number] Univers 08:30:00 08:30:00 SANTIAGO barbosa [facility] 2020-11-07 2020-11-07 Telephone Agustina Ortiz 6400 1.2.840.11 4 [id number] [place] 00:00:00 00:00:[address] 350.1.13.58 Health 9.2.7.2.686 [id number] 1 2020-11-07 2020-11-07 Telephone Diana UTP 6400 1.2.840.114 124 [id number] 00:00:00 00:00:[address] 350.1.13.58 9.2.7.2.686 [id number] 1 2020-10-31 2020-10-31 Office Hematpour UTP 6400 1.2.840.114 12 [id number] [place] 07:54:00 09:45:[address] 350.1.13.58 Health 9.2.7.2.686 [id number] 1 2020-10-30 2020-10-30 Abstract Rody Maguire UTP 6400 1.2.840.1 14 [id number] [place] 00:00:00 00:00:[address] 350.1.13.58 Health 9.2.7.2.686 [id number] 1 2020-10-29 2020-10-29 Refill [place], 1.2.840.8 [id number] 400 Univers 00:00:00 00:00:00 Santiago 03963.1.1 ity of 3.104.2.7 [place] .3.517723 Medica l .8 Branch 2020-10-29 2020-10-29 Refill [place], 1.2.840.0 [id number] 400 Univers 00:00:00 00:00:00 Santiago 35963.1.1 ity of 3.104.2.7 [place] .3.227174 Medica l .8 Branch 2020-10-27 2020-10-27 Telephone Jailyn, 1.2.840.5 [id number] 21 [id number] Methodi 00:00:00 00:00:[address] 3.430.2.7 Hospit a .3.027314 l .8 2020-10-24 2020-10-24 Telephone Clark, 1.2.840.1 [id number] 2100 [id number] Methodi 00:00:00 00:00:[address] 3.430.2.7 Hospit a .3.006144 l .8 2020-10-22 2020-10-22 Outpatient R SELF, [facility] [id number] Univers 13:00:00 13:00:00 GADIEL vogel [facility] 2020-10-22 2020-10-22 Travel 1.2.840.1 1.2.500.903 4175 3839 [facility] 00:00:00 00:00:00 68449.1.1 350.1.13.10 ity of 3.104.2.7 4.[place].7.3.698 [place] .3.743244 084.8 Medica l .8 [place] 2020-10-22 2020-10-22 Travel 1.2.840.1 1.2.470.906 7309 3839 [facility] 00:00:00 00:00:00 51380.1.1 350.1.13.10 ity of 3.104.2.7 4.[place]7.3.698 [place] .3.248970 084.8 Medica l .8 [place] 2020-10-13 2020-10-13 Outpatient R SELF, [facility] [id number] Univers 08:45:00 08:45:00 GADIEL vogel [facility] 2020-10-06 2020-10-12 Telemedici Cadea, 1.2.840.1 [id number] 21 [id number] Methodi 15:30:00 00:08:46 ne Ray [address]12.1.[address] 3.430.2.7 Hospit a .3.649773 l .8 2020-09-30 2020-09-30 Telephone Chidimasa, 1.2.840.1 [id number] 21 [id number] Methodi 00:00:00 00:00:[address] 3.430.2.7 Hospit a .3.659598 l .8 2020-09-21 2020-09-21 Travel 1.2.840.1 1.2.619.991 8899 111017 Methodi 00:00:00 00:00:[address] 3.430.2.7 0.2.7.3.698 Ho spita .3.116560 084.8 l .8 2020-09-06 2020-09-06 [facility] 1.2.840.1 [id number] 19128 Methodi 17:42:30 23:59:[address] 3.430.2.7 Hospit a .3.407856 l .8 2020-09-06 2020-09-06 [facility], 1.2.840.1 [id number] 2100 [id number] Methodi 16:50:00 17:41:00 Encounter Ray [address]41.1.[address] 3.430.2.7 Hospit a .3.627428 l .8 2020-09-05 2020-09-05 [facility], 1.2.840.1 [id number] 2099 [id number] Methodi 09:17:00 19:45:00 Encounter Ray [address].1.[address] 3.430.2.7 Hospit a .3.719674 l .8 2020-09-05 2020-09-05 [facility], 1.2.840.1 [id number] 82749 55774 Methodi 11:30:00 13:15:[address] 3.430.2.7 Hospit a .3.324908 l .8 2020-09-05 2020-09-05 Anesthesia [facility], 1.2.840.1 [id number] Methodi 11:27:00 12:20:00 Event Johnathanthi 45687.1.1 [address] V. 3.430.2.7 Hospit a .3.117905 l .8 2020-09-05 2020-09-05 Travel 1.2.840.1 1.2.339.249 [id number] Methodi 00:00:00 00:00:[address] 3.430.2.7 0.2.7.3.698 Ho spita .3.295531 084.8 l .8 2020-09-04 2020-09-04 Telephone Meisen[place], 1.2.840.1 [id number] Methodi 00:00:00 00:00:00 Sarai Lieberman 07123.1.1 762 s t 3.430.2.7 Hospit a .3.710722 l .8 2020-09-02 2020-09-02 Telephone Meisenbach, 1.2.840.7 [id number] Methodi 00:00:00 00:00:00 Sarai Lieberman 70381.1.1 344 s t 3.430.2.7 Hospit a .3.795436 l .8 2020-08-29 2020-08-30 Bedded [facility] [id number] [facility] 10:20:00 14:10:00 Outpatient r [place] 00 [facility] 2020-08-29 2020-08-30 Outpatient [facility], [facility] CAR 7500 [facility] 05:20:00 09:10:00 [place] 2020-08-06 2020-08-06 Office East, 1.2.840.6 [id number] [facility] 08:03:23 09:17:49 Visit Santiago 38451.1.1 ity of 3.104.2.7 [place] .3.626606 Medica l .8 Branch 2020-08-06 2020-08-06 Outpatient R EAST, [facility] [id number] Univers 08:30:00 08:30:00 SANTIAGO ity of [facility] 2020-07-14 2020-07-14 Outpatient R SELF, [facility] [id number] Univers 09:30:00 09:30:00 GADIEL vogel f [facility] 2020-07-14 2020-07-14 Travel 1.2.840.1 1.2.597.844 [id number] Univers 00:00:00 00:00:00 42428.1.1 350.1.13.10 ity of 3.104.2.7 [place].3.698 [place] .3.[place] 084.8 Medica l .8 [place] 2020-07-14 2020-07-14 Orders Doctor 1.2.840.0 [id number] Univers 00:00:00 00:00:00 Only Unassigned, 64384.1.1 ity of [place] 3.104.2.7 [place] .3.797074 Medica l .8 [place] 2020-06-16 2020-06-16 Outpatient R [facility], [facility] [id number] Univers 08:00:00 08:00:00 GADIEL barbosa o f [facility] 2020-06-06 2020-06-06 Telephone East, 1.2.840.1 [id number] Univers 00:00:00 00:00:00 [place] 26846.1.1 ity of 3.104.2.7 [place] .3.721569 Medica l .8 [place] 2020-06-04 2020-06-04 Chief Controller Santiago Cardenas 1.2.840.1 [id number] Univers 09:31:58 09:40:12 Visit [facility] 71550.1.1 ity of 3.104.2.7 [place] .3.631569 Medica l .8 [place] 2020-06-04 2020-06-04 Office [facility], [place] 1.2.578.626 [id number] Univers 08:13:41 09:28:25 Visit Santiago [facility] 350.1.13.10 i ty of CL[place]ICS [place] 467.3074448 Medi porfirio 089 [place] 2020-06-04 2020-06-04 Outpatient R [facility] [id number] Univers 08:30:00 08:30:00 SANTIAGO barbosa of [facility] 2020-06-04 2020-06-04 Orders Doctor 1.2.840.8 [id number] Univers 00:00:00 00:00:00 Only Unassigned, 78448.1.1 ity of [place] 3.104.2.7 [place] .3.760848 Medica l .8 Branch 2020-05-19 2020-05-19 Telephone East, 1.2.840.3 [id number] Univers 00:00:00 00:00:00 [place] 25395.1.1 ity of 3.104.2.7 [place] .3.168744 Medica l .8 [place] 2020-04-24 2020-04-24 Telephone East, 1.2.840.2 [id number] Univers 00:00:00 00:00:00 [place] 93122.1.1 ity of 3.104.2.7 [place] .3.981833 Medica l .8 [place] 2020-04-14 2020-04-14 Outpatient R EAST, [facility] [id number] Univers 09:00:00 09:00:00 SANTIAGO ity of [facility] 2020-04-14 2020-04-14 Telephone East, 1.2.840.5 [id number] Univers 00:00:00 00:00:00 [place] 23900.1.1 ity of 3.104.2.7 [place] .3.603487 Medica l .8 [place] 2020-03-31 2020-03-31 Outpatient R EAST, [facility] [id number] Univers 08:30:00 08:30:00 SANTIAGO ity of [facility] 2020-03-03 2020-03-03 Outpatient R SELF, [facility] [id number] Univers 08:00:00 08:00:00 GADIEL barbosa o f [facility] 2020-03-03 2020-03-03 Outpatient R SELF, [facility] [id number] Univers 08:00:00 08:00:00 GADIEL barbosa o f [facility] 2020-03-03 2020-03-03 Travel 1.2.840.1 1.2.137.317 [id number] Univers 00:00:00 00:00:00 38935.1.1 350.1.13.10 ity of 3.104.2.7 4.[place].7.3.698 [place] .3.884820 084.8 Medica l .8 [place] 2020-02-06 2020-02-06 Telephone East, 1.2.840.9 [id number] Univers 00:00:00 00:00:00 [place] 90757.1.1 ity of 3.104.2.7 [place] .3.367808 Medica l .8 [place] 2020-01-26 2020-01-26 Emergency Caridad, 1.2.840.1 [id number] Univers 10:03:00 13:05:00 Cynise 68879.1.1 ity of 3.104.2.7 [place] .3.085580 Medica l .8 Branch 2020-01-26 2020-01-26 Travel 1.2.840.1 1.2.063.657 [id number] Univers 00:00:00 00:00:00 92131.1.1 350.1.13.10 ity of 3.104.2.7 4[place]7.3.698 [place] .3.203720 084.8 Medica l .8 [place] 2020-01-25 2020-01-25 Outpatient R [facility] [id number] Univers 08:30:00 08:30:00 SANTIAGO ity of [facility] 2020-01-25 2020-01-25 Telemedici East, 1.2.840.2 [id number] Univers 07:36:49 08:06:49 ne Visit [place] 08725.1.1 ity of 3.104.2.7 [place] .3.009234 Medica l .8 [place] 2020-01-16 2020-01-16 Outpatient R [facility] [id number] Univers 08:00:00 08:00:00 SANTIAGO ity of [facility] 2020-01-16 2020-01-16 Telephone East, 1.2.840.9 [id number] Univers 00:00:00 00:00:00 [place] 27825.1.1 ity of 3.104.2.7 [place] .3.543881 Medica l .8 [place] 2020-01-14 2020-01-14 Outpatient R [facility] [id number] Univers 08:00:00 08:00:00 GADIEL maciely o f [facility] 2019-12-31 2019-12-31 Outpatient R SELF, [facility] [id number] Univers 08:45:00 08:45:00 GADIEL vogel f [facility] 2019-10-17 2019-10-17 Outpatient R EAST, [facility] [id number] Univers 08:30:00 08:30:00 SANTIAGO barbosa [facility] 2019-10-12 2019-10-12 Outpatient R EAST, [facility] [id number] Univers 13:00:00 13:00:00 SANTIAGO ity [facility] 2019-10-12 2019-10-12 Telemedici [place], 1.2.840.4 [id number] Univers 07:38:30 08:08:30 ne Visit [place] 57260.1.1 ity of 3.104.2.7 [place] .3.463540 Medica l .8 [place] 2019-10-08 2019-10-08 Outpatient R SELF, [facility] [id number] Univers 10:15:00 10:15:00 GADIEL rodas [facility] 2019-10-03 2019-10-03 Case Assman, 1.2.840.1 [id number] Univers 00:00:00 00:00:00 Management Michael Corbin 14400.1.1 i ty of 3.104.2.7 [place] .3.903567 Medica l .8 [place] 2019-09-27 2019-09-27 Telephone East, 1.2.840.0 [id number] Univers 00:00:00 00:00:00 [place] 49771.1.1 ity of 3.104.2.7 [place] .3.239658 Medica l .8 [place] 2019-09-04 2019-09-04 Refill East, 1.2.840.2 [id number] Univers 00:00:00 00:00:00 [place] 03280.1.1 ity of 3.104.2.7 [place] .3.414446 Medica l .8 [place] 2019-07-24 2019-07-24 Outpatient R EAST, [facility] [id number] Univers 08:30:00 08:30:00 SANTIAGO barbosa [facility] 2019-07-17 2019-07-17 [facility]patient [facility] [id number] Univers 10:00:00 10:00:00 SANTIAGO itcharlie of [facility] 2019-06-15 2019-06-15 Telephone East, 1.2.840.7 [id number] Univers 00:00:00 00:00:00 [place] 43350.1.1 ity of 3.104.2.7 [place] .3.530999 Medica l .8 [place] 2019-06-13 2019-06-13 Telephone Team, [facility] 1.2.840.6 [id number] Univers 00:00:00 00:00:00 Health 33954.1.1 [place] .3.617538 Medica [place] .8 [place] 2019-05-10 2019-05-10 Refill Ronald, 1.2.840.1 [id number] Univers 00:00:00 00:00:00 [place] 88185.1.1 ity of 3.104.2.7 [place] .3.550027 Medica l .8 [place] 2019-05-09 2019-05-09 Refill Ronald, 1.2.840.9 [id number] Univers 00:00:00 00:00:00 [place] 77169.1.1 ity of 3.104.2.7 [place] .3.791641 Medica l .8 [place] 2019-04-30 2019-04-30 Outpatient R SELF, [facility] [id number] Univers 10:15:00 10:33:05 GADIEL barbosa o f [facility] 2019-04-18 2019-04-18 Chief Controller [place] Cardenas 1.2.840.1 [id number] Univers 10:00:39 10:44:31 Visit [facility] 21150.1.1 ity of 3.104.2.7 [place] .3.620033 Medica l .8 [place] 2019-04-18 2019-04-18 Outpatient [facility] [id number] Univers 10:00:00 10:44:31 SANTIAGO barbosa of [facility] 2019-04-18 2019-04-18 Office East, 1.2.840.5 [id number] Univers 08:27:44 09:53:27 Visit [place] 62345.1.1 ity of 3.104.2.7 [place] .3.710340 Medica l .8 [place] 2019-04-18 2019-04-18 Orders Doctor 1.2.840.5 [id number] Univers 00:00:00 00:00:00 Only Unassigned, 55858.1.1 ity of [place] 3.104.2.7 [place] .3.381543 Medica l .8 [place] 2019-04-11 2019-04-11 Refill East, 1.2.840.6 [id number] Univers 00:00:00 00:00:00 [place] 21632.1.1 ity of 3.104.2.7 [place] .3.073074 Medica l .8 [place] 2019-04-09 2019-04-09 Refill East, 1.2.840.6 [id number] Univers 00:00:00 00:00:00 [place] 47909.1.1 ity of 3.104.2.7 [place] .3.589345 Medica l .8 [place] 2019-04-03 2019-04-03 Telephone Team, [facility] 1.2.840.9 [id number] Univers 00:00:00 00:00:00 Health 73257.1.1 [place].2.[place] .3.178403 Medica [place] .8 [place] 2019-03-27 2019-03-27 Telephone Self, 1.2.840.5 [id number] Univers 00:00:00 00:00:00 Gadiel 47754.1.1 ity of 3.104.2.7 [place] .3.467908 Medica l .8 [place] 2019-01-17 2019-01-17 Office East, 1.2.840.3 [id number] Univers 07:37:21 10:32:51 Visit [place] 04898.1.1 ity of 3.104.2.7 [place] .3.246098 Medica l .8 [place] 2019-01-04 2019-01-12 Office Eveline Hansen 1.2.840.3 [id number] Univers 11:19:32 11:08:05 Visit Mariela 57084.1.1 ity of 3.104.2.7 [place] .3.730967 Medica l .8 [place] 2019-01-10 2019-01-10 Telephone Stanislav, 1.2.840.8 [id number] Univers 00:00:00 00:00:00 Eladio Inman 86026.1.1 ity of 3.104.2.7 [place] .3.549961 Medica l .8 [place] 2018-12-18 2018-12-18 Office Geraldine, 1.2.840.7 [id number] Univers 08:48:45 09:13:43 Visit Leyda 26181.1.1 it y of 3.104.2.7 [place] .3.575745 Medica l .8 [place] 2018-10-30 2018-10-30 Telephone East, 1.2.840.3 [id number] Univers 00:00:00 00:00:00 [place] 42141.1.1 ity of 3.104.2.7 [place] .3.630012 Medica l .8 [place] 2018-10-23 2018-10-23 Orders Doctor 1.2.840.9 [id number] Univers 00:00:00 00:00:00 Only Unassigned, 84938.1.1 ity of [place] 3.104.2.7 [place] .3.998261 Medica l .8 [place] 2018-10-23 2018-10-23 Nurse Selvin, 1.2.840.0 [id number] Univers 00:00:00 00:00:00 Triage Stefanie 16686.1.1 ity of 3.104.2.7 [place] .3.106318 Medica l .8 [place] 2018-10-23 2018-10-23 Telephone Self, 1.2.840.0 [id number] Univers 00:00:00 00:00:00 Gadiel 83923.1.1 ity of 3.104.2.7 [place] .3.678417 Medica l .8 [place] 2018-10-20 2018-10-20 Telephone Self, 1.2.840.6 [id number] Univers 00:00:00 00:00:00 Gadiel 02107.1.1 ity of 3.104.2.7 [place] .3.893115 Medica l .8 Branch Results Test Description Test Time Test Comments Results Result Comments Source COMP. METABOLIC PANEL (62987) 2022-05-06 22:42:55 Test Item Value Reference Range Interpretation Comme nts NA (test code = 5863685191) 137 mmol/L 135-145 K (test code = 3252831163) 3.2 mmol/L 3.5-5.0 L CL (test code = 9765974839) 100 mmol/L 98-108 CO2 TOTAL (test code = 1964295640) 23 mmol/L 23-31 AGAP (test code = 3732170433) 2-16 BUN (test code = 9264357264) 41 mg/dL 7-23 H GLUCOSE (test code = 6308990477) 98 mg/dL 70-110 CREATININE (test code = 1.55 mg/dL 0.50-1.04 H 1063453128) TOTAL BILI (test code = 0.8 mg/dL 0.1-1.8 0083540107) CALCIUM (test code = 4826260197) 8.3 mg/dL 8.6-10.6 L T PROTEIN (test code = 4727718827) 6.9 g/dL 6.3-8.2 ALBUMIN (test code = 0558587757) 3.9 g/dL 3.5-5.0 ALK PHOS (test code = 2749218441) 89 U/L 34-122 ALTv (test code = 1742-6) 101 U/L 5-35 H AST(SGOT) (test code = 4628533863) 203 U/L 13-40 H eGFR (test code = 7038874293) mL/min/1.73m2 KYLE (test code = KYLE) Association [...] tests). Lab Interpretation (test code = Abnormal 61770-7) [facility] WITH [id number] 22:33:52 Test Item Value Reference Range Interpretation Comments WBC (test code = See_Comment L [Automated 5935-2) message] The sy stem which generated this result transmitted reference range : 4.30 - 11.10 10*3/?L. The reference range was not used to interpret this result as normal/abnormal . RBC (test code = See_Comment [Automated 235-8) message] The sy stem which generated this [...] RDW-SD (test code = 46.3 fL 39.0-49.9 85405-5) RDW-CV (test code = 13.5 % 12.0-15.5 788-0) PLT (test code = See_Comment L [Automated 777-3) message] The sy stem which generated this result transmitted reference range : 166 - 358 10*3/ ?L. The reference r abbey was not used to interpret this result as normal/abnormal . MPV (test code = 9.5 fL 9.5-12.9 48351-9) NRBC/100 WBC (test See_Comment [Automat ed code = 0645785087) message] The system which generated this result transmitted reference range : 0.0 - 10.0 /100 WBCs. The refer ence range was not u sed to interpret th is result as normal/abnormal . NRBC x10^3 (test code See_Comment [Auto mated = 1855596961) message] The s ystem which generated this result transmitted reference range : 10*3/?L. The reference range was not used to interpret this result as normal/abnormal . GRAN MAT (NEUT) % 58.3 % (test code = 770-8) IMM GRAN % (test code 0.80 % = 6471796216) LYMPH % (test code = 28.1 % 736-9) MONO % (test code = 12.0 % 5905-5) EOS % (test code = 0.5 % 713-8) BASO % (test code = 0.3 % 706-2) GRAN MAT x10^3(ANC) 2.29 10*3/uL 1.88-7.09 (test code = 6850661627) IMM GRAN x10^3 (test 0.03 10*3/uL 0.00-0.06 code = 0826167154) LYMPH x10^3 (test code 1.10 10*3/uL 1.32-3.29 L = 731-0) MONO x10^3 (test code 0.47 10*3/uL 0.33-0.92 = 742-7) EOS x10^3 (test code = 0.03-0.39 L 711-2) BASO x10^3 (test code 0.01-0.07 = 704-7) Lab Interpretation Abnormal (test code = 38046-5) [facility] METABOLIC PANEL (NA, K, CL, CO2, GLUCOSE, BUN, CREATININE, CA)2022-04-22 21:43:42 Test Item Value Reference Range Interpretation Comments NA (test code = 142 mmol/L 135-145 1247296156) K (test code = 3.5 mmol/L 3.5-5.0 1133873724) CL (test code = 106 mmol/L 98-108 2474575502) CO2 TOTAL (test code = 26 mmol/L 23-31 7802589594) AGAP (test code = 2-16 1977089959) BUN (test code = 29 mg/dL 7-23 H 2055049479) GLUCOSE (test code = 84 mg/dL 70-110 4173172495) CREATININE (test code = 1.16 mg/dL 0.50-1.04 H 4349429037) CALCIUM (test code = 8.2 mg/dL 8.6-10.6 L 1484397167) eGFR (test code = mL/min/1.73m2 3461853558) KYLE (test code = KYLE) Association of [...] tests). Lab Interpretation Abnormal (test code = 69713-6) [facility] WITH [id number] 21:33:01 Test Item Value Reference Range Interpretation [...] (test code = 50.7 fL 39.0-49.9 H 83555-0) RDW-CV (test code = 14.6 % 12.0-15.5 788-0) PLT (test code = See_Comment L [Automated 777-3) message] The sy stem which generated this result transmitted reference range : 166 - 358 10*3/ ?L. The reference r abbey was not used to interpret this result as normal/abnormal . MPV (test code = 8.8 fL 9.5-12.9 L 87312-5) NRBC/100 WBC (test See_Comment [Automat ed code = 1776988665) message] The system which generated this result transmitted reference range : 0.0 - 10.0 /100 WBCs. The refer ence range was not u sed to interpret th is result as normal/abnormal . NRBC x10^3 (test code See_Comment [Auto mated = 1729299614) message] The s ystem which generated this result transmitted reference range : 10*3/?L. The reference range was not used to interpret this result as normal/abnormal . GRAN MAT (NEUT) % 70.9 % (test code = 770-8) IMM GRAN % (test code 0.50 % = 9319102200) LYMPH % (test code = 17.4 % 736-9) MONO % (test code = 9.0 % 5905-5) EOS % (test code = 1.7 % 713-8) BASO % (test code = 0.5 % 706-2) GRAN MAT x10^3(ANC) 4.60 10*3/uL 1.88-7.09 (test code = 0074926601) IMM GRAN x10^3 (test 0.03 10*3/uL 0.00-0.06 code = 8722295147) LYMPH x10^3 (test code 1.13 10*3/uL 1.32-3.29 L = 731-0) MONO x10^3 (test code 0.58 10*3/uL 0.33-0.92 = 742-7) EOS x10^3 (test code = 0.11 10*3/uL 0.03-0.39 711-2) BASO x10^3 (test code 0.03 10*3/uL 0.01-0.07 = 704-7) Lab Interpretation Abnormal (test code = 10805-7) [id number]07 Test Item Value Reference Range Interpretation Comments Blood Culture-Aerobic No organisms No growth Previo us (test code = 49842-1) isolated prelim inary verified result was Culture [...] Culture-Anaerobic isolated preliminar y (test code = 94320-6) verifi ed result was Culture In Progress [...] CDT Lab Interpretation Normal (test code = 97925-4) [facility] CULTURE [id number] 06:01:07 Test Item Value Reference Range Interpretation Comments Blood Culture-Aerobic No organisms No growth Previo us (test code = 67197-1) isolated prelim inary verified result was Culture [...] Culture-Anaerobic isolated preliminar y (test code = 80104-6) verifi ed result was Culture In Progress [...] CDT Lab Interpretation Normal (test code = 49348-7) [facility] CULTURE [id number] 06:01:07 Test Item Value Reference Range Interpretation Comments Blood Culture-Aerobic No organisms No growth Previo us (test code = 73481-1) isolated prelim inary verified result was Culture [...] Culture-Anaerobic isolated preliminar y (test code = 84867-3) verifi ed result was Culture In Progress [...] CDT Lab Interpretation Normal (test code = 92899-0) [facility] [id number] 10:49:10 Test Item Value Reference Range Interpretation Comments NT-proBNP (test code 2660 pg/mL See_Comment H [Autom ated = 5856265085) message] The system which generated this result transmitted reference range : <=125. The reference range was not used to interpret this result as normal/abnormal . KYLE (test code = KYLE) Biotin has been reported to cause a negative bias, interpret results relative to patient's use of biotin. Lab Interpretation Abnormal (test code = 97904-1) [facility]-TERMINAL [id number] 10:49:10 Test Item Value Reference Range Interpretation Comments NT-proBNP (test code 2660 pg/mL See_Comment H [Autom ated = 5222507834) message] The system which generated this result transmitted reference range : <=125. The reference range was not used to interpret this result as normal/abnormal . KYLE (test code = KYLE) Biotin has been reported to cause a negative bias, interpret results relative to patient's use of biotin. Lab Interpretation Abnormal (test code = 22154-7) [facility] METABOLIC PANEL (NA, K, CL, CO2, GLUCOSE, BUN, CREATININE, CA)2022-02-15 10:44:07 Test Item Value Reference Range Interpretation Comments NA (test code = 134 mmol/L 135-145 L 9373753598) K (test code = 3.2 mmol/L 3.5-5 L 1714409049) CL (test code = 98 mmol/L 98-108 3217113692) CO2 TOTAL (test code = 27 mmol/L 23-31 2266173388) AGAP (test code = 2-16 3994757297) BUN (test code = 19 mg/dL 7-23 1821974202) GLUCOSE (test code = 102 mg/dL 70-110 8932360606) CREATININE (test code = 0.95 mg/dL 0.5-1.04 0414071684) CALCIUM (test code = 8.5 mg/dL 8.6-10.6 L 7178702286) eGFR (test code = mL/min/1.73m2 6632753625) KYLE (test code = KYLE) Association of [...] tests). Lab Interpretation Abnormal (test code = 37687-8) [facility] Test Item Value Reference Range Interpretation Comments MAGNESIUM (test code = 3463574663) 1.8 mg/dL 1.7-2.4 Lab Interpretation (test code = Normal 07493-1) [facility] 10:44[facility]07 Test Item Value Reference Range Interpretation Comments MAGNESIUM (test code = 4221584603) 1.8 mg/dL 1.7-2.4 Lab Interpretation (test code = Normal 15336-7) [facility] METABOLIC PANEL (NA, K, CL, CO2, GLUCOSE, BUN, CREATININE, CA)2022-02-15 10:44:07 Test Item Value Reference Range Interpretation Comments NA (test code = 134 mmol/L 135-145 L 7768129940) K (test code = 3.2 mmol/L 3.5-5.0 L 4363123646) CL (test code = 98 mmol/L 98-108 6738841042) CO2 TOTAL (test code = 27 mmol/L 23-31 3214332097) AGAP (test code = 2-16 6081037543) BUN (test code = 19 mg/dL 7-23 1935706616) GLUCOSE (test code = 102 mg/dL 70-110 1136564375) CREATININE (test code = 0.95 mg/dL 0.50-1.04 2917625702) CALCIUM (test code = 8.5 mg/dL 8.6-10.6 L 8712812275) eGFR (test code = mL/min/1.73m2 5441259778) KYLE (test code = KYLE) Association of [...] tests). Lab Interpretation Abnormal (test code = 10794-5) [facility] WITH [id number] 10:12:06 Test Item Value Reference Range Interpretation [...] RDW-SD (test code = 47.8 fL 39-49.9 22871-6) RDW-CV (test code = 15.2 % 12-15.5 788-0) PLT (test code = See_Comment L [Automated 777-3) message] The sy stem which generated this result transmitted reference range : 166 - 358 10*3/ ?L. The reference r abbey was not used to interpret this result as normal/abnormal . MPV (test code = 8.9 fL 9.5-12.9 L 15333-0) NRBC/100 WBC (test See_Comment [Automat ed code = [id number]) message] The system which generated this result transmitted reference range : 0.0 - 10.0 /100 WBCs. The refer ence range was not u sed to interpret th is result as normal/abnormal . NRBC x10^3 (test code See_Comment [Auto mated = [id number]) message] The s ystem which generated this result transmitted reference range : 10*3/?L. The reference range was not used to interpret this result as normal/abnormal . GRAN MAT (NEUT) % 65.9 % (test code = 770-8) IMM GRAN % (test code 0.30 % = [id number]) LYMPH % (test code = 21.0 % 736-9) MONO % (test code = 10.1 % 5905-5) EOS % (test code = 2.4 % 713-8) BASO % (test code = 0.3 % 706-2) GRAN MAT x10^3(ANC) 2.49 10*3/uL 1.88-7.09 (test code = [id number]) IMM GRAN x10^3 (test 0-0.06 code = [id number]) LYMPH x10^3 (test code 0.79 10*3/uL 1.32-3.29 L = 731-0) MONO x10^3 (test code 0.38 10*3/uL 0.33-0.92 = 742-7) EOS x10^3 (test code = 0.09 10*3/uL 0.03-0.39 711-2) BASO x10^3 (test code 0.01-0.07 = 704-7) Lab Interpretation Abnormal (test code = 32170-5) [facility] WITH [id number] 10:12:06 Test Item Value Reference Range Interpretation [...] RDW-SD (test code = 47.8 fL 39.0-49.9 82552-0) RDW-CV (test code = 15.2 % 12.0-15.5 788-0) PLT (test code = See_Comment L [Automated 777-3) message] The sy stem which generated this result transmitted reference range : 166 - 358 10*3/ ?L. The reference r abbey was not used to interpret this result as normal/abnormal . MPV (test code = 8.9 fL 9.5-12.9 L 63783-6) NRBC/100 WBC (test See_Comment [Automat ed code = [id number]) message] The system which generated this result transmitted reference range : 0.0 - 10.0 /100 WBCs. The refer ence range was not u sed to interpret th is result as normal/abnormal . NRBC x10^3 (test code See_Comment [Auto mated = [id number]) message] The s ystem which generated this result transmitted reference range : 10*3/?L. The reference range was not used to interpret this result as normal/abnormal . GRAN MAT (NEUT) % 65.9 % (test code = 770-8) IMM GRAN % (test code 0.30 % = [id number]) LYMPH % (test code = 21.0 % 736-9) MONO % (test code = 10.1 % 5905-5) EOS % (test code = 2.4 % 713-8) BASO % (test code = 0.3 % 706-2) GRAN MAT x10^3(ANC) 2.49 10*3/uL 1.88-7.09 (test code = [id number]) IMM GRAN x10^3 (test 0.00-0.06 code = [id number]) LYMPH x10^3 (test code 0.79 10*3/uL 1.32-3.29 L = 731-0) MONO x10^3 (test code 0.38 10*3/uL 0.33-0.92 = 742-7) EOS x10^3 (test code = 0.09 10*3/uL 0.03-0.39 711-2) BASO x10^3 (test code 0.01-0.07 = 704-7) Lab Interpretation Abnormal (test code = 77110-0) [facility] WITH [id number] 11:18:28 Test Item Value Reference Range Interpretation [...] RDW-SD (test code = 49.5 fL 39-49.9 06969-9) RDW-CV (test code = 15.5 % 12-15.5 788-0) PLT (test code = See_Comment L [Automated 777-3) message] The sy stem which generated this result transmitted reference range : 166 - 358 10*3/ ?L. The reference r abbey was not used to interpret this result as normal/abnormal . MPV (test code = 11.4 fL 9.5-12.9 44465-5) IPF % (test code = 8.7 % 1.3-7.7 H Platelet count 4659170156) measured by fluorescence method. NRBC/100 WBC (test See_Comment [Automat ed code = 3512914118) message] The system which generated this result transmitted reference range : 0.0 - 10.0 /100 WBCs. The refer ence range was not u sed to interpret th is result as normal/abnormal . NRBC x10^3 (test code See_Comment [Auto mated = 5857385826) message] The s ystem which generated this result transmitted reference range : 10*3/?L. The reference range was not used to interpret this result as normal/abnormal . GRAN MAT (NEUT) % 62.0 % (test code = 770-8) IMM GRAN % (test code 0.80 % = 7197849514) LYMPH % (test code = 22.2 % 736-9) MONO % (test code = 9.6 % 5905-5) EOS % (test code = 5.1 % 713-8) BASO % (test code = 0.3 % 706-2) GRAN MAT x10^3(ANC) 2.21 10*3/uL 1.88-7.09 (test code = 7222458560) IMM GRAN x10^3 (test 0.03 10*3/uL 0-0.06 code = 7793111958) LYMPH x10^3 (test code 0.79 10*3/uL 1.32-3.29 L = 731-0) MONO x10^3 (test code 0.34 10*3/uL 0.33-0.92 = 742-7) EOS x10^3 (test code = 0.18 10*3/uL 0.03-0.39 711-2) BASO x10^3 (test code 0.01-0.07 = 704-7) POLYCHROMASIA (test 2+ See_Comment [Automa arpit code = 20459-0) message] The system which generated this result [...] . Lab Interpretation Abnormal (test code = 68968-5) [facility] METABOLIC PANEL (NA, K, CL, CO2, GLUCOSE, BUN, CREATININE, CA)2022-02-13 10:39:07 Test Item Value Reference Range Interpretation Comments NA (test code = 136 mmol/L 135-145 5375154337) K (test code = 4.1 mmol/L 3.5-5 6410143352) CL (test code = 102 mmol/L 98-108 6695480591) CO2 TOTAL (test code = 27 mmol/L 23-31 6405131449) AGAP (test code = 2-16 7169652112) BUN (test code = 22 mg/dL 7-23 4291706373) GLUCOSE (test code = 94 mg/dL 70-110 3454982396) CREATININE (test code = 0.94 mg/dL 0.5-1.04 1318128007) CALCIUM (test code = 8.1 mg/dL 8.6-10.6 L 5192117234) eGFR (test code = mL/min/1.73m2 6560023181) KYLE (test code = KYLE) Association of [...] tests). Lab Interpretation Abnormal (test code = 02843-0) [facility] 01:50:10 Test Item Value Reference Range Interpretation Comments Height (test code = in 8957130157) Weight (test code = lbs 8092661769) Systolic BP (test code mmHg = 2589542571) Diastolic BP (test code mmHg = 8338295645) Heart Rate (test code = bpm 6314157557) BSA (test code = 1.85 m2 5935574369) IVS (test code = 1.22 cm 5748502875) Interventricular Septum 1.22 cm Diastolic Thickness by 2D (test code = 6345679) LVIDD (test code = 5.00 cm 2629776840) Left Ventricular End 117.9 mL Diastolic Volume by Teichholz Method (test code = 6572390) LVPWD (test code = 1.22 cm 5361559795) PW (test code = 1.22 cm 0.6-1.0 0346660437) EF(Teich) (test code = 74.60 % 7530451604) LVIDS (test code = 2.80 cm 1064526483) Left Ventricular End 29.9 mL Systolic Volume by Teichholz Method (test code = 7699704) FS (test code = 44 % 7436475614) EF - 2D (test code = 74.60 % 44764877) LVOT diameter (test 2.16 cm code = 4180790646) LVOT area (test code = 3.70 cm2 1712571999) Ao root diam (test code 3.40 cm = 5018537592) Aortic root (test code 3.4 cm = 6198715033) Ao root annulus (test 3.4 cm code = 9755319620) LA size (test code = 3.4 cm 0551074832) TR Peak Spencer (test code 330.0 cm/s = 9136042918) Triscuspid Valve mmHg Regurgitation Peak Gradient (test code = 0565960789) PV REGURGITATION PEAK mmHg GRADIENT (test code = 0778567598) PI dec slope (test code 137.20 cm/s2 = 4836319937) LAV(MOD-sp4) (test code 102.90 mL = 9156795811) MV Peak E Spencer (test 84.1 cm/s code = 7025750053) MV Peak A Spencer (test 40.1 cm/s code = 4083333166) E/A ratio (test code = ratio 6599886552) MV valve area p 1/2 3.70 cm2 method (test code = 0865233031) MV dec slope (test code 413.00 cm/s2 = 0293043607) MV P1/2t max spencer (test 83.70 cm/s code = 3057996734) MV Prop V (test code = 41.80 cm/s 0551524870) Tapse (test code = 1.83 cm 3620344729) LVOT stroke volume 96.90 cm3 (test code = 7207519390) LVOT peak spencer (test 125.5 cm/s code = 9595333776) LVOT mn grad (test code mmHg = 0612508439) AV LVOT peak gradient mmHg (test code = 3154422941) LVOT peak VTI (test 26.4 cm code = 1769378482) LV V1 mean (test code = 78.10 cm/s 7267171405) Aortic valve mean 103.7 cm/s velocity (test code = 6554527252) Ao peak spencer (test code 165.6 cm/s = 2425442513) Ao VTI (test code = 37.2 cm 5916352175) AV area by cont VTI 2.6 cm2 (test code = 9839646486) AV area peak sepncer (test 2.8 cm2 code = 8138219483) Ao max PG (test code = 11.00 mm[Hg] 0838535213) AV peak gradient (test mmHg code = 6974362066) AV valve area (test 2.60 cm2 code = 0806815960) AV mean gradient (test mmHg code = 1215314862) LA Volume Index (BP) 55.2 mL/m2 (test code = 6447748674) LA volume (BP) (test 102.1 mL code = 2783913226) LAV(MOD-sp2) (test code 86.10 mL = 6194072730) A2C EF (test code = 61.20 % 4274576988) EF(sp2-el) (test code = 61.60 % 3980064923) SV(MOD-sp2) (test code 47.10 mL = 1547534238) LV Diastolic Volume 70.7 mL (BP) (test code = 4572204366) A4C EF (test code = 53.00 % 8215027637) EF(MOD-bp) (test code = 56.70 % 5393605887) EF(sp4-el) (test code = 53.90 % 0172991077) LV Systolic Volume (BP) 30.6 mL (test code = 4927603548) SV(MOD-bp) (test code = 40.10 mL 2129885292) SV(MOD-sp4) (test code 32.40 mL = 6972210466) SV(sp4-el) (test code = 33.10 mL 5218342238) EF (test code = 9661214038) Left Ventricular Stroke 40.1 mL Volume by 2-D Biplane-MOD (test code = 4514483) LV Diastolic Volume 38.2 mL/m2 Index (BP) (test code = 4393204406) LV Systolic Volume 16.5 mL/m2 Index (BP) (test code = 9839566801) Radiology Study observation (narrative) (test code = 15719-8) KYLE (test code = KYLE) ?Left?Ventricle: Left [...] 1.00The left ventricular wall motion is normal. [facility] [id number] 05:45:01 Test Item Value Reference Interpretation Comments Range TROPONIN I (test See_Comment [Automated code = 7291011974) message] The system which generated this result [...] biotin. Lab Interpretation Normal (test code = 76804-6) [facility] [id number] 05:41:40 Test Item Value Reference Range Interpretation Comments NT-proBNP (test code 4250 pg/mL See_Comment H [Autom ated = 9317087879) message] The system which generated this result transmitted reference range : <=125. The reference range was not used to interpret this result as normal/abnormal . KYLE (test code = KYLE) Biotin has been reported to cause a negative bias, interpret results relative to patient's use of biotin. Lab Interpretation Abnormal (test code = 76386-0) [facility] [id number] 05:35:21 Test Item Value Reference Range Interpretation Comments APTT Patient (test See_Comment [Automat ed code = 3173-2) message] The system which generated this result transmitted reference range : 23 - 38 Seconds . The reference range was not used to interpr et this result as normal/abnormal . KYLE (test code = KYLE) The [facility] patient population mean normal value for aPTT is 30 seconds. Lab Interpretation Normal (test code = 04243-4) [facility] [id number] 05:35:21 Test Item Value Reference Range Interpretation Comments APTT Patient (test See_Comment [Automat ed code = 3173-2) message] The system which generated this result transmitted reference range : 23 - 38 Seconds . The reference range was not used to interpr et this result as normal/abnormal . KYLE (test code = KYLE) The [facility] patient population mean normal value for aPTT is 30 seconds. Lab Interpretation Normal (test code = 44407-7) [facility] / [id number] 05:33:21 Test Item Value Reference Range Interpretation Comments PROTIME PATIENT (test See_Comment [Auto mated message] code = 5964-2) The system Verafin generated this result transmitted ref erence range: 12.0 - 1 4.7 Seconds. The re ference range was not u sed to interpret this result as normal/abnor mal. INR (test code = 6301-6) Nor mal INR <1.1; Warfarin Therap eutic range 2.0 to 3. 0 or 2.5 to 3.5, dep ending upon the indica tions. Lab Interpretation (test Normal code = 02889-0) [facility]. METABOLIC PANEL (01179)2022-02-11 05:33:21 Test Item Value Reference Range Interpretation Comments NA (test code = 137 mmol/L 135-145 6437954321) K (test code = 4.3 mmol/L 3.5-5 2485704163) CL (test code = 103 mmol/L 98-108 0681754815) CO2 TOTAL (test code = 25 mmol/L 23-31 3254091615) AGAP (test code = 2-16 9192414802) BUN (test code = 19 mg/dL 7-23 5058097779) GLUCOSE (test code = 120 mg/dL 70-110 H 4332920253) CREATININE (test code = 1.15 mg/dL 0.5-1.04 H 3159466307) TOTAL BILI (test code = 0.9 mg/dL 0.1-1.2 0610288518) CALCIUM (test code = 8.9 mg/dL 8.6-10.6 0974188492) T PROTEIN (test code = 6.6 g/dL 6.3-8.2 7640720373) ALBUMIN (test code = 4.0 g/dL 3.5-5 8195537915) ALK PHOS (test code = 73 U/L 34-122 6665636429) ALTv (test code = 18 U/L 5-35 1742-6) AST(SGOT) (test code = 31 U/L 13-40 9565994964) eGFR (test code = mL/min/1.73m2 6912454466) KYLE (test code = KYLE) Association of [...] tests). Lab Interpretation Abnormal (test code = 27313-0) [facility]. METABOLIC PANEL (63938)2022-02-11 05:33:21 Test Item Value Reference Range Interpretation Comments NA (test code = 137 mmol/L 135-145 5695795766) K (test code = 4.3 mmol/L 3.5-5.0 4376265929) CL (test code = 103 mmol/L 98-108 8334705814) CO2 TOTAL (test code = 25 mmol/L 23-31 1526692162) AGAP (test code = 2-16 4641367222) BUN (test code = 19 mg/dL 7-23 4229201430) GLUCOSE (test code = 120 mg/dL 70-110 H 9718242314) CREATININE (test code = 1.15 mg/dL 0.50-1.04 H 3548601409) TOTAL BILI (test code = 0.9 mg/dL 0.1-1.5 1573108612) CALCIUM (test code = 8.9 mg/dL 8.6-10.6 3333012740) T PROTEIN (test code = 6.6 g/dL 6.3-8.2 2816603840) ALBUMIN (test code = 4.0 g/dL 3.5-5.0 0885957279) ALK PHOS (test code = 73 U/L 34-122 9674788888) ALTv (test code = 18 U/L 5-35 1742-6) AST(SGOT) (test code = 31 U/L 13-40 5362784348) eGFR (test code = mL/min/1.73m2 3785343709) KYLE (test code = KYLE) Association of [...] tests). Lab Interpretation Abnormal (test code = 88286-5) [facility] / [id number] 05:33:21 Test Item Value Reference Range Interpretation [...] tions. Lab Interpretation (test Normal code = 09548-2) [facility] WITH [id number] 05:14:37 Test Item Value Reference Range Interpretation Comments WBC (test code = See_Comment [Automated 0690-2) message] The sy stem which generated this [...] RDW-SD (test code = 47.9 fL 39-49.9 84344-3) RDW-CV (test code = 14.9 % 12-15.5 788-0) PLT (test code = See_Comment L [Automated 777-3) message] The sy stem which generated this result transmitted reference range : 166 - 358 10*3/ ?L. The reference r abbey was not used to interpret this result as normal/abnormal . MPV (test code = 9.1 fL 9.5-12.9 L 63604-3) NRBC/100 WBC (test See_Comment [Automat ed code = 7199587776) message] The system which generated this result transmitted reference range : 0.0 - 10.0 /100 WBCs. The refer ence range was not u sed to interpret th is result as normal/abnormal . NRBC x10^3 (test code See_Comment [Auto mated = 6783667584) message] The s ystem which generated this result transmitted reference range : 10*3/?L. The reference range was not used to interpret this result as normal/abnormal . GRAN MAT (NEUT) % 78.5 % (test code = 770-8) IMM GRAN % (test code 0.20 % = 4032524720) LYMPH % (test code = 11.6 % 736-9) MONO % (test code = 8.4 % 5905-5) EOS % (test code = 1.1 % 713-8) BASO % (test code = 0.2 % 706-2) GRAN MAT x10^3(ANC) 3.45 10*3/uL 1.88-7.09 (test code = 2630246639) IMM GRAN x10^3 (test 0-0.06 code = 7088365516) LYMPH x10^3 (test code 0.51 10*3/uL 1.32-3.29 L = 731-0) MONO x10^3 (test code 0.37 10*3/uL 0.33-0.92 = 742-7) EOS x10^3 (test code = 0.05 10*3/uL 0.03-0.39 711-2) BASO x10^3 (test code 0.01-0.07 = 704-7) Lab Interpretation Abnormal (test code = 33617-5) [facility] Coronavirus 2018 Sihbqbj2595-06-52 18:08:00 Test Item Value Reference Range Interpretation [...] det ection of nucleic acids f rom avxXEAO-XkJ-3 v irus and diagnosis of SA RS-CoV-2 virusinfection. It is an Emergency Use Authorization ( EUA) testauthorized by the U.S. FDA. BASIC METABOLIC [id number] 09:37:00 Test Item Value Reference Range Interpretation [...] = 9.0 mg/dL 8.0-10.5 N CA) PROTHROMBIN [id number] 09:32:00 Test Item Value Reference Range Interpretation [...] (to prevent recurrent infar ct). 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 [facility] - XR CHEST 1 [id number] 00:00:00 [facility]AN FLE[facility]ING : 1955 Sex: F FAX: Carmenza Kelly DO [phone] [place]: St: ADM FAX: Mike Scales MD [phone] FAX: Bahman Chopra [phone] Name: MARJAN FLEMING [facility] : 1955 Age/S: 66/F [address] [place] [address] Unit #: [id number] Loc: [place] [address] Phys: Bahman Chopra [facility] Acct: [id number] Dis Date: Status: ADM IN PHONE #: [phone] Exam Date: 06/17/2021 1320 FAX #: [phone] Reason: WATCHMAN EXAMS: CPT CODE: [id number] XR CHEST 1 V 10038 PROCEDURE INFORMATION: Exam: XR Chest Exam date [...] Chopra Technologist: RT Taylor(R) Trnscrd Date/Time/By: 06/17/2021 (3246) : By: Susanna Orig Print D/T: S: 06/17/2021 (5041) PAGE 1 Signed ReportCOVID 19 Asymptomatic IH [...] high or waivedcomplexit y tests. BASIC METABOLIC [id number] 11:37:00 Test Item Value Reference Range Interpretation [...] code = 9.0 mg/dL 8.0-10.5 N CA) [id number] 11:37:00 Test Item Value Reference Range Interpretation Comments PREALBUMIN (test code = PREALB) 24.3 mg/dL 16.0-40.0 N PROTHROMBIN [id number] 11:03:00 Test Item Value Reference Range Interpretation [...] (to prevent recurrent infar ct). CBC W/AUTO [id number] 10:59:00 Test Item Value Reference Range Interpretation [...] 0.0-0.1 N NRBC#) - XR CHEST 2 [id number] 00:00:00 [facility] 1955 Sex: F FAX: Carmenza Oliveraankristen Peterson [phone] [place]: St: PRE FAX: Mike Scales MD [phone] Name: MARJAN FLEMING [facility] : 1955 Age/S: 66/F [address] [place] [address] Unit #: [id number] Loc: [place] [address] Phys: Mike Lund MD Acct: [id number] Dis Date: Status: PRE [facility] PHONE #: [phone] Exam Date: 06/16/2021 1120 FAX #: [phone] Reason: PREOP EXAMS: CPT CODE: [id number] XR CHEST 2 V 62448 PROCEDURE INFORMATION: Exam: XR Chest Exam date [...] MD Technologist: RT Andree(R) Trnscrd Date/Time/By: 06/16/2021 (8089) : By: [email or web address] Orig Print D/T: S: 06/16/2021 (9747) PAGE 1 Signed ReportGastrointestinal [id number] 04:35:05 Test Item Value Reference Interpretation Comments [...] Rotavirus PCR (test Not Detected code = 4970417) Salmonella PCR (test Not Detected code = [...] PCR Not Detected (test code = 7124) [facility] wpakiyu2369[facility]07 19:30:47 Test Item Value Reference Range Interpretation Comments Case number (test [id number] code = 1404012) Surgical pathology See link below for PDF report (test code = Lab Report 2255) Result status (test This is Supplemental code = 9062813) Report for [id number] [facility]2021-04-09 16:31:00 Test Item Value Reference Range Interpretation Comments POC Activated Clotting Time (test code 153 s = POC Activated Clotting Time) [facility] HospitalHoyugxnYZHGASFGHA6533-94-65 16:31:00 Test Item Value Reference Range Interpretation Comments POC Activated Clotting Time (test code 153 s = POC Activated Clotting Time) [facility] HospitalQdulasdLMBKXJKEXY8971-28-08 16:31:00 Test Item Value Reference Range Interpretation Comments POC Activated Clotting Time (test code 153 s = POC Activated Clotting Time) [facility] HospitalLfbugxwASINIRKZBA4208-77-88 16:31:00 Test Item Value Reference Range Interpretation Comments POC Activated Clotting Time (test code 153 s = POC Activated Clotting Time) [facility] HospitalEcvdnrwZPZSCFVYFS0830-72-76 16:31:00 Test Item Value Reference Range Interpretation Comments POC Activated Clotting Time (test code 153 s = POC Activated Clotting Time) [facility] HospitalMepamjuUQLSQVNNXH8560-54-87 16:31:00 Test Item Value Reference Range Interpretation Comments POC Activated Clotting Time (test code 153 s = POC Activated Clotting Time) [facility] HospitalZudxpyrDLZGNYAISL9736-50-20 16:31:00 Test Item Value Reference Range Interpretation Comments POC Activated Clotting Time (test code 153 s = POC Activated Clotting Time) [facility] HospitalFsoaizmBEUZYTKHNL0149-94-62 14:37:00 Test Item Value Reference Range Interpretation Comments POC Activated Clotting Time (test code 454 s = POC Activated Clotting Time) [facility] HospitalQbjpdlyAYWHNKKCCX9100-58-73 14:37:00 Test Item Value Reference Range Interpretation Comments POC Activated Clotting Time (test code 454 s = POC Activated Clotting Time) [facility] HospitalFoxetbcZLVJAOZTGF0833-01-95 14:37:00 Test Item Value Reference Range Interpretation Comments POC Activated Clotting Time (test code 454 s = POC Activated Clotting Time) [facility] HospitalEsmnddcYVESUSIEUX7108-01-08 14:37:00 Test Item Value Reference Range Interpretation Comments POC Activated Clotting Time (test code 454 s = POC Activated Clotting Time) [facility] HospitalQkzgxreDLIMFNSLZN9817-61-86 14:37:00 Test Item Value Reference Range Interpretation Comments POC Activated Clotting Time (test code 454 s = POC Activated Clotting Time) [facility] HospitalLpxodkyEVXKHSGNHQ4542-41-57 14:37:00 Test Item Value Reference Range Interpretation Comments POC Activated Clotting Time (test code 454 s = POC Activated Clotting Time) [facility] HospitalBpxvuoeKFFWSZRFED1492-29-16 14:37:00 Test Item Value Reference Range Interpretation Comments POC Activated Clotting Time (test code 454 s = POC Activated Clotting Time) [facility] HospitalUbyerunSLODALOYQR9077-17-49 14:13:00 Test Item Value Reference Range Interpretation Comments POC Activated Clotting Time (test code 354 s = POC Activated Clotting Time) [facility] HospitalZsxgizpQDHVRPKVRZ2054-88-81 14:13:00 Test Item Value Reference Range Interpretation Comments POC Activated Clotting Time (test code 354 s = POC Activated Clotting Time) [facility] HospitalIixafnyERLGRZVMYZ8966-47-73 14:13:00 Test Item Value Reference Range Interpretation Comments POC Activated Clotting Time (test code 354 s = POC Activated Clotting Time) [facility] HospitalZyqklvvTSIXRUPXRO6473-51-40 14:13:00 Test Item Value Reference Range Interpretation Comments POC Activated Clotting Time (test code 354 s = POC Activated Clotting Time) [facility] HospitalClxbwcrDVJKFGQTCN7721-32-80 14:13:00 Test Item Value Reference Range Interpretation Comments POC Activated Clotting Time (test code 354 s = POC Activated Clotting Time) [facility] HospitalRetwkgrCVWTBRAQBM7283-87-13 14:13:00 Test Item Value Reference Range Interpretation Comments POC Activated Clotting Time (test code 354 s = POC Activated Clotting Time) [facility] HospitalCwulsryADTHHWFFBV2664-25-94 14:13:00 Test Item Value Reference Range Interpretation Comments POC Activated Clotting Time (test code 354 s = POC Activated Clotting Time) [facility] YIMUDKM1287-33-14 10:37:00Negative (08/29/20 5:37 AM) [facility]CHE[facility] RWNFX1364-12-03 10:37:96123Qpuhreni Red LionCHEM PANEL 2020-08-29 10:37:0028[facility]CHE[facility] JBUUZ4308-86-43 10:37:001.01[facility]annCHEM EEGHI8003-31-71 10:37:68941Tdoejgdg HermannCHEM ZUNTU4084-43-53 10:37:003.8[facility]annCHEM OHNAD1603-88-83 10:37:28824Ppgkryqd HermannCHEM YKSFK5019-78-18 10:37:0028[facility]annCHEM SGVBP8595-75-50 10:37:009.8 [facility]annCHE[facility] BWNQT8021-29-03 10:37:0011.8[facility]annCHEM PANEL 2020-08-29 10:37:0059[facility]annCHEM EXEPF3862-72-42 10:37:002.9[facility] FkzcrxrQBMUNPMMEL3761-00-81 10:37:006.8[facility] ZzjpmbdVEJNNVOWWT2259-18-83 10:37:004.47[facility] HxkkrlmPSWHAPPLTN9097-28-43 10:37:0010.6[facility] KSWTTXNIUC1071-34-14 10:37:0034.0[facility] YrsbpusBUYBEYSRXQ4517-95-16 10:37:00 76.1[facility] MjjqvxmOYVPSBSDUD3217-64-71 10:37:00 Test Item Value Reference Range Interpretation Comments MCH (test code = MCH) 23.8 pg 27.0-31.0 [facility] LywdzdqNCKGPKJQAV6956-50-48 10:37:0031.3[facility]annHEMATOLOGY 2020-08-29 10:37:0018.2[facility] UvoymtxWZLJLTESCK6801-39-16 10:37:14250Hqbfntmf StmzyfiCSTPOWBSNL6189-87-05 10:37:007.5[facility] SnsdskbHRVCKLGKCO6652-83-58 10:37:00 Test Item Value Reference Range Interpretation Comments PT (test code = PT) 12.8 s 12.0-14.7 [facility] DuxflreIFKRCAIKKC5155-00-76 10:37:00 Test Item Value Reference Range Interpretation Comments INR (test code = INR) 0.97 1 0.85-1.17 [facility] QxssaswPKSUGKTMXE5648-34-04 10:37:00 Test Item Value Reference Range Interpretation Comments PTT (test code = PTT) 25.0 s 22.9-35.8 [facility] VslyzwfLPRJSHIJMG3178-58-81 10:37:0070.5[facility]annHEMATOLOGY 2020-08-29 10:37:0018.8[facility] GldmgpiQBPFWKOMRR7989-97-06 10:37:009.5[facility] IrstdeoHXNLLKSWJR7029-61-80 10:37:000.9[facility] PlelihzRHXJVCLDMI8434-18-25 10:37:000.3[facility] CisgrvbLETBIGIWJZ0938-48-87 10:37:004.8[facility] DAOYEDLJNY4999-48-90 10:37:001.3[facility] MzrsyhzCYSCGVUGFZ7813-26-17 10:37:000.6 [facility] RapgxqpYDEQNIFWYV9007-16-78 10:37:000.1[facility]annHEMATOLOGY 2020-08-29 10:37:001+ *ABN*(08/29/20 5:37 AM)[facility] TlltvopWLGAZAOUCW6164-78-54 10:37:00Not Detected (08/29/20 5:37 AM)[facility]annBLOOD BANK RESULTS 2020-08-29 10:37:00Negative (08/29/20 5:37 AM)[facility]annCHEM BNHJF3932-31-51 10:37:82978Ilucqicj HermannCHEM NGVMO8912-45-95 10:37:0028[facility]annCHEM PDJKI0869-23-58 10:37:001.01[facility] HermannCHEM GEEUD4424-30-48 10:37:48067 [facility]annCHEM BNNMH9542-86-11 10:37:003.8[facility]ann[facility] PANEL 2020-08-29 10:37:21107Lgavsjsf HermannCHEM CLYZA3456-77-67 10:37:0028[facility]annCHE[facility] OLIBW2504-34-88 10:37:009.8[facility]annCHE[facility] IPULT1323-42-50 10:37:0011.8[facility]annCHE[facility] NSJBU7156-83-03 10:37:0059[facility]annCHE[facility] QZKKZ6725-47-58 10:37:002.9[facility] AsbnoplQINVLKLGIJ4508-70-84 10:37:006.8 [facility] KkhqogdYRZLOKVANT9370-57-32 10:37:004.47[facility]annHEMATOLOGY 2020-08-29 10:37:0010.6[facility] ThcmqldHWYTHOFYCG9448-81-69 10:37:0034.0[facility] QfgamhjTQOSMSVQNL6219-70-85 10:37:0076.1[facility] GxgdlpxSHSUUIKVLS7667-63-97 10:37:00 Test Item Value Reference Range Interpretation Comments MCH (test code = MCH) 23.8 pg 27.0-31.0 [facility] XffvbifYFXCVAPCSA5170-34-99 10:37:0031.3[facility]annHEMATOLOGY 2020-08-29 10:37:0018.2[facility] TkgmokxEKCVRYKFVA0824-07-53 10:37:26100Gtzezzmn EzfqamwPCRRTQKYJT9592-42-54 10:37:007.5[facility] EbuegvrRXTQDRCXCX7931-35-82 10:37:00 Test Item Value Reference Range Interpretation Comments PT (test code = PT) 12.8 s 12.0-14.7 [facility] GaewrwsDPQWTNRFII6220-37-48 10:37:00 Test Item Value Reference Range Interpretation Comments INR (test code = INR) 0.97 1 0.85-1.17 [facility] MnmdjrrJXCWZEBGEM9619-96-59 10:37:00 Test Item Value Reference Range Interpretation Comments PTT (test code = PTT) 25.0 s 22.9-35.8 [facility] EiqjtvfDREQSDTAIW4612-16-83 10:37:0070.5[facility] 2020-08-29 10:37:0018.8[facility] BrzjakhYQPSGDMYFI5172-10-98 10:37:009.5[facility] WahfnfrOOXVNSADZM3141-43-62 10:37:000.9[facility] VmfxmfkFTDHBTMJRN2592-78-30 10:37:000.3[facility] ZjfgepoNGQJAHRYAB0627-63-54 10:37:004.8[facility] EZYVOUCPVR2791-46-77 10:37:001.3[facility] VvasaydZZLBBTKUPK8317-19-55 10:37:000.6 [facility] YrgekokWXTMHDSJMP3463-48-90 10:37:000.1[facility]ann[facility]OLOGY 2020-08-29 10:37:001+ *ABN*(08/29/20 5:37 AM)[facility] NngqjkpCIQYXZHFIL2747-44-77 10:37:00Not Detected (08/29/20 5:37 AM)[facility] RESULTS 2020-08-29 10:37:00Negative (08/29/20 5:37 AM)[facility]annCHEM DIJKI2995-47-91 10:37:97950Hpbymmeb HermannCHEM FFQBM4131-29-32 10:37:0028[facility]annCHEM LUJON1713-01-93 10:37:001.01[facility]annCHE[facility] HJYKX1685-49-96 10:37:90861 [facility]annCHE[facility] SKCZU5308-74-81 10:37:003.8[facility]annCHEM PANEL 2020-08-29 10:37:05314Syszhdjv HermannCHEM CCBSF8906-97-25 10:37:0028[facility]annCHE[facility] TGCBE7206-37-09 10:37:009.8[facility]annCHEM EVWTV7040-15-68 10:37:0011.8[facility]annCHEM FKGDF4191-33-73 10:37:0059[facility]annCHE[facility] EQCCI7976-08-50 10:37:002.9[facility] ZgllcjaTQMOFQDXWT1749-25-00 10:37:006.8 [facility] GnbegawRCZMHRFOZH8779-91-37 10:37:004.47[facility]annHEMATOLOGY 2020-08-29 10:37:0010.6[facility] PbzxpsxKFNXSDRCYX0994-72-99 10:37:0034.0[facility] VasmmsnWQPNEPJPOA3336-85-08 10:37:0076.1[facility] RwkgndtBZTKMMVONN0785-10-77 10:37:00 Test Item Value Reference Range Interpretation Comments MCH (test code = MCH) 23.8 pg 27.0-31.0 [facility] KhnlkysUHUZNGEQKJ7589-84-78 10:37:0031.3[facility]annHEMATOLOGY 2020-08-29 10:37:0018.2[facility] AglylrnWEYWOOQKAC4130-03-58 10:37:32622Qbrgynwv TucmrnkNQLXFNFTXB3641-92-79 10:37:007.5[facility] BlataqqRGZKKYMSAV1057-24-46 10:37:00 Test Item Value Reference Range Interpretation Comments PT (test code = PT) 12.8 s 12.0-14.7 [facility] FtxqobtLBPKPPKFWK5284-41-75 10:37:00 Test Item Value Reference Range Interpretation Comments INR (test code = INR) 0.97 1 0.85-1.17 [facility] WtemmxxBJWDQVIJBC7966-24-97 10:37:00 Test Item Value Reference Range Interpretation Comments PTT (test code = PTT) 25.0 s 22.9-35.8 [facility] KsvbrdjHIUXPGPSAW7352-81-19 10:37:0070.5[facility]annHEMATOLOGY 2020-08-29 10:37:0018.8[facility] NafesfmRBRJCUTDHV4485-40-95 10:37:009.5[facility] DqejuesUWTPQFBTGR8331-43-50 10:37:000.9[facility] MqjnhmtGDXBRLMYDN3820-31-63 10:37:000.3[facility] DrrjdalCRIXMEIOZU9136-84-40 10:37:004.8[facility] QVYDTZBPXK8909-32-28 10:37:001.3[facility] VdxiygqKSCDDISLYV5133-94-47 10:37:000.6 [facility] NjqyhyqYHXVZBOIFP8154-56-19 10:37:000.1[facility]annHEMATOLOGY 2020-08-29 10:37:001+ *ABN*(08/29/20 5:37 AM)[facility] EjgivtsHEEWEWNJJU8506-22-34 10:37:00Not Detected (08/29/20 5:37 AM)[facility] RESULTS 2020-08-29 10:37:00Negative (08/29/20 5:37 AM)[facility]annCHEM XDIPQ3780-30-69 10:37:30026Xwkflkbc HermannCHEM FNMRX5813-65-04 10:37:0028[facility]annCHEM IOAIO1767-29-12 10:37:001.01[facility]annCHEM YGGMA0543-72-11 10:37:13200 [facility]annCHE[facility] WARXK8914-29-53 10:37:003.8[facility] HermannCHEM PANEL 2020-08-29 10:37:10829Tdbzbryl HermannCHEM SZLFN3472-75-41 10:37:0028[facility]annCHEM VGQLS4620-71-88 10:37:009.8[facility]annCHEM BNGIM6634-36-22 10:37:0011.8[facility]annCHEM GSNBM0632-38-88 10:37:0059[facility]annCHEM NEVWG3225-05-15 10:37:002.9[facility] CtqelvdTAVEQYELYS6012-98-16 10:37:006.8 [facility] RfksjfjQNOGCLAFNF4585-46-60 10:37:004.47[facility]annHEMATOLOGY 2020-08-29 10:37:0010.6[facility] GsbegdgRKTJYRTLTB1178-40-09 10:37:0034.0[facility] YqlhjtjMXAAUPHVHY3760-32-18 10:37:0076.1[facility] IyqkzokRDEBUDIPSL1885-43-80 10:37:00 Test Item Value Reference Range Interpretation Comments MCH (test code = MCH) 23.8 pg 27.0-31.0 [facility] PqhvmcuGETZWOJBBT1068-17-66 10:37:0031.3[facility]annHEMATOLOGY 2020-08-29 10:37:0018.2[facility] LhrysvbRTGRDGCLGL3380-73-48 10:37:16543Eqxwwjdq KfkjabvUZKGKKNVRU2981-82-59 10:37:007.5[facility] DranwuhVUDYMYLXTK8588-34-10 10:37:00 Test Item Value Reference Range Interpretation Comments PT (test code = PT) 12.8 s 12.0-14.7 [facility] UsiazftLDEFXBUPIB3300-57-98 10:37:00 Test Item Value Reference Range Interpretation Comments INR (test code = INR) 0.97 1 0.85-1.17 [facility] MakemruKBKKBWWIPB5668-09-47 10:37:00 Test Item Value Reference Range Interpretation Comments PTT (test code = PTT) 25.0 s 22.9-35.8 [facility] IwsckqgAYROQXKIVV3027-64-47 10:37:0070.5[facility]annHEMATOLOGY 2020-08-29 10:37:0018.8[facility] NlehafyWKKSRLKJJR0364-43-00 10:37:009.5[facility] RqfwduzSISNRQCLNX0907-31-62 10:37:000.9[facility] OhdeygzRIBPQKXLWD4009-01-42 10:37:000.3[facility] KcgkxijKWQVKFSEUM3748-42-03 10:37:004.8[facility] KWYESIAZCL7823-51-36 10:37:001.3[facility] ZabltikZHFQGVEICT8348-68-91 10:37:000.6 [facility] RpgxvpyKOBUIRSXSL6498-80-42 10:37:000.1[facility]annHEMATOLOGY 2020-08-29 10:37:001+ *ABN*(08/29/20 5:37 AM)[facility] ErsuwqpISDYNEQVBE4931-71-40 10:37:00Not Detected (08/29/20 5:37 AM)[facility] HermannBLOOD BANK RESULTS 2020-08-29 10:37:00Negative (08/29/20 5:37 AM)[facility]annCHEM SLUBN4262-77-25 10:37:09400Eixgyrak HermannCHEM NZEOZ8029-58-21 10:37:0028[facility]annCHE[facility] LMANS9760-24-86 10:37:001.01[facility]annCHEM CPDML6716-82-66 10:37:51716 [facility] URJMG8287-11-14 10:37:003.8[facility] HermannCHEM PANEL 2020-08-29 10:37:33314Urajcist HermannCHEM RTYYP5086-77-94 10:37:0028[facility]annCHEM XWULC5708-00-81 10:37:009.8[facility]annCHEM OLJQB5405-80-21 10:37:0011.8[facility] HermannCHEM GAAVA9364-50-86 10:37:0059[facility]annCHEM XJQYH6989-05-11 10:37:002.9[facility] LjrwfdtDTKTGAUEZW5443-02-76 10:37:006.8 [facility] KlwaapuTAIOIEWEDX5091-96-82 10:37:004.47[facility]annHEMATOLOGY 2020-08-29 10:37:0010.6[facility] DsguzjuHIDRZWZPYG2881-66-23 10:37:0034.0[facility] QvswqhuNTSQEQCUYS4971-98-48 10:37:0076.1[facility] ByxdiiqZAUKEVCYPK7161-44-47 10:37:00 Test Item Value Reference Range Interpretation Comments MCH (test code = MCH) 23.8 pg 27.0-31.0 [facility] MkcysxwEUPKJXCOGS5923-03-44 10:37:0031.3[facility]annHEMATOLOGY 2020-08-29 10:37:0018.2[facility] KrjiiajDSTORYVDHG5236-26-99 10:37:61496Zynmiute RpyrzutEZNWPPVKNU8194-09-57 10:37:007.5[facility] QudgofvVQHZAUGQCF0374-69-04 10:37:00 Test Item Value Reference Range Interpretation Comments PT (test code = PT) 12.8 s 12.0-14.7 [facility] CabvpmwXTAFXOWOGJ4418-61-23 10:37:00 Test Item Value Reference Range Interpretation Comments INR (test code = INR) 0.97 1 0.85-1.17 [facility] WrvsovtALLHXOUWKW8067-56-88 10:37:00 Test Item Value Reference Range Interpretation Comments PTT (test code = PTT) 25.0 s 22.9-35.8 [facility] GbgvzhuOKJRNMRLTZ2335-73-87 10:37:0070.5[facility]annHEMATOLOGY 2020-08-29 10:37:0018.8[facility] GxebbufNXVLBWNILB3636-89-98 10:37:009.5[facility] WhudyhePDZBTGIDEN9640-17-33 10:37:000.9[facility] UrkcfulOQNVPZCBVB5084-87-33 10:37:000.3[facility] OvdtxacYMOUNGUJWK5407-15-61 10:37:004.8[facility] FTOBHYHKYC1815-35-19 10:37:001.3[facility] VvpmjbdZQPIIKLKED2260-44-84 10:37:000.6 [facility] CngfaunISYUINUXAR7696-14-98 10:37:000.1[facility]annHEMATOLOGY 2020-08-29 10:37:001+ *ABN*(08/29/20 5:37 AM)[facility] IskgzwrVUVINQJZQJ7508-47-36 10:37:00Not Detected (08/29/20 5:37 AM)[facility]annBLOOD BANK RESULTS 2020-08-29 10:37:00Negative (08/29/20 5:37 AM)[facility]annCHEM TEXTI0197-26-65 10:37:54279Xtpakhwx HermannCHEM RWQNX2811-11-51 10:37:0028[facility]annCHEM PQZCU7849-76-38 10:37:001.01[facility]annCHEM JSTGK3037-22-27 10:37:96569 [facility]annCHE[facility] AGJVS9278-58-14 10:37:003.8[facility] HermannCHEM PANEL 2020-08-29 10:37:09487Srpyvpir HermannCHEM FJSGW4606-97-66 10:37:0028[facility]annCHEM ICKED1139-06-10 10:37:009.8[facility]annCHEM JYTAC5135-49-09 10:37:0011.8[facility]annCHEM UJTTV5561-86-19 10:37:0059[facility]annCHEM CQYQW3301-28-60 10:37:002.9[facility] ScicsscQPMTXCQKMN6430-39-79 10:37:006.8 [facility] KxbdribMZQSGWPZPG2020-50-47 10:37:004.47[facility]annHEMATOLOGY 2020-08-29 10:37:0010.6[facility] JokwagnHNJONDIZJA7443-58-31 10:37:0034.0[facility] ZvyivbtHXIINOSYQF2143-71-73 10:37:0076.1[facility] HmkjnovHBJFQHDZXJ2482-66-87 10:37:00 Test Item Value Reference Range Interpretation Comments MCH (test code = MCH) 23.8 pg 27.0-31.0 [facility] ZyldaboETBFPWBKIZ 31.3[facility]annHEMATOLOGY 2020-08-29 10:37:0018.2[facility] TqyaqywSVECZKDXGX7996-15-43 10:37:67038Bofiinee NxcgsyeASGGIANJLF4911-21-85 10:37:007.5[facility] QzkbaefAEKIYUAJYT7608-96-91 10:37:00 Test Item Value Reference Range Interpretation Comments PT (test code = PT) 12.8 s 12.0-14.7 [facility] CyjxoviQWRNGQJWJT3380-44-07 10:37:00 Test Item Value Reference Range Interpretation Comments INR (test code = INR) 0.97 1 0.85-1.17 [facility] FvcurilNRFRQYMJVY6559-06-40 10:37:00 Test Item Value Reference Range Interpretation Comments PTT (test code = PTT) 25.0 s 22.9-35.8 [facility] YmksyzvFVMYVFXPAM0015-14-80 10:37:0070.5[facility]annHEMATOLOGY 2020-08-29 10:37:0018.8[facility] JehadoxXMOHRSQJNC8401-51-75 10:37:009.5[facility] JbyjoosMFCDFQVDOG5539-57-51 10:37:000.9[facility] MurtlfiMTGJPNIRLN2975-21-37 10:37:000.3[facility] JpyizbeRZPFHEPVQP2241-26-10 10:37:004.8[facility] YEUONXSZVE0599-27-50 10:37:001.3[facility] LlblrqgFROQFLMQCT9460-41-99 10:37:000.6 [facility] HmlutcgAKASOSZUGB2034-03-01 10:37:000.1[facility]annHEMATOLOGY 2020-08-29 10:37:001+ *ABN*(08/29/20 5:37 AM)[facility] SdoutztVJNJNLZDKK4504-99-62 10:37:00Not Detected (08/29/20 5:37 AM)[facility] HermannBLOOD BANK RESULTS 2020-08-29 10:37:00Negative (08/29/20 5:37 AM)[facility]annCHEM FXBPU3658-89-10 10:37:93722Lhdnhgxt HermannCHEM WFOLT4986-97-66 10:37:0028[facility]annCHEM NAFOT5093-35-01 10:37:001.01[facility] HermannCHEM CHCFY7660-27-17 10:37:55851 [facility]annCHE[facility] MJMEA6243-39-95 10:37:003.8[facility] HermannCHEM PANEL 2020-08-29 10:37:19479Dlejoksh HermannCHEM JLIQB9767-30-49 10:37:0028[facility]annCHEM CZANX3229-16-67 10:37:009.8[facility] HermannCHEM RPSNH4290-34-65 10:37:0011.8[facility]annCHEM GKFYH4461-47-54 10:37:0059[facility]annCHEM XPNCM3632-84-10 10:37:002.9[facility] GhbbcqfYYLCADUGWC1159-98-67 10:37:006.8 [facility] AjztqvzPQRDEVPJIP5596-78-18 10:37:004.47[facility]annHEMATOLOGY 2020-08-29 10:37:0010.6[facility] EehldysNOIGYTPGUG9183-90-62 10:37:0034.0[facility] EypxwsxMYKNQAUSXW2856-57-60 10:37:0076.1[facility] NtqhjrbVUNITUCHAJ5191-99-44 10:37:00 Test Item Value Reference Range Interpretation Comments MCH (test code = MCH) 23.8 pg 27.0-31.0 [facility] QvtlijvFPNGWPVPIX5698-44-79 10:37:0031.3[facility]annHEMATOLOGY 2020-08-29 10:37:0018.2[facility] DhxjdsxQOBGPEJMZX5074-94-03 10:37:21637Foxbgghs TkffojzLYEGKIJGBJ3739-82-37 10:37:007.5[facility] MhqlhdjPPLZLTDWDH3679-02-20 10:37:00 Test Item Value Reference Range Interpretation Comments PT (test code = PT) 12.8 s 12.0-14.7 [facility] UgumfxcNKUBTZBGMU6077-48-14 10:37:00 Test Item Value Reference Range Interpretation Comments INR (test code = INR) 0.97 1 0.85-1.17 [facility] QaooyfsMHNYUCDXPE2602-24-23 10:37:00 Test Item Value Reference Range Interpretation Comments PTT (test code = PTT) 25.0 s 22.9-35.8 [facility] GczimddAADMBAHUVR9866-17-51 10:37:0070.5[facility]annHEMATOLOGY 2020-08-29 10:37:0018.8[facility] ThfsqotXPXHFQMSYI5978-76-07 10:37:009.5[facility] QhiwxplRFWVIVMOVF9372-51-66 10:37:000.9[facility] RlhyvxpUOTNYNOHWS5885-30-80 10:37:000.3[facility] VoqvliaUAPGENNFWV3733-55-44 10:37:004.8[facility] LLUYNHQFWU8817-97-14 10:37:001.3[facility] RtkcuzjBCYYPRQPKL2340-91-07 10:37:000.6 [facility] XnoymspPUJHRPEWHK7625-48-51 10:37:000.1[facility]annHEMATOLOGY 2020-08-29 10:37:001+ *ABN*(08/29/20 5:37 AM)[facility] FrthwbdFMKICJLWHO9055-25-47 10:37:00Not Detected (08/29/20 5:37 AM)[facility], GC, TV,PCR, IN TZHRH8966-29-10 15:38:00 Test Item Value Reference Range Interpretation Comments FT (test code = CHTR) Not detected (qualifier Not Detected N value) FT (test code = Not detected (qualifier Not Detected N NGONO) value) FT (test code = TRVG) Not detected (qualifier Not Detected N value) [facility] BELPVAGKGME5544-51-18 10:57:00 Test Item Value Reference Range Interpretation Comments Color (test code = UCOLR) Dk. Yellow Clarity (test code = UCLAR) Hazy Glucose (test code = UGLUC) NEGATIVE NEGATIVE N Bilirubin (test code = UBILI) NEGATIVE NEGATIVE N Ketones (test code = UKET) NEGATIVE NEGATIVE N Specific [place] (test code = 1.025 1.005-1.030 A [...] Seen N URCRYS) [facility] Notes Date/Time Note Provider Source 2021-08-05 14:08:00-00:00 [id number] [place] [address] PATIENT NAME: MARJAN FLEMING ADMIT DATE: 08/05/21 ACCOUNT NO: [id number] ROOM NO: AGE: 66 REPORT TYPE: eTRANSESOPHAGEAL ECHO REPORT SEX: F ADMITTING PHYSICIAN: ATTENDING PHYSICIAN:Mike Lund MD *[place] [address] Transesophageal Echocardiogram Patient: Marjan Fleming Study Date: 08/05/2021 BP: 158 / 92 Location: [facility] URN: [id number] : 1955 Age: 66 Height: / Gender: F Weight: / BMI/BSA: / *Ordering Physician: * Mike Lund *Interpreting Physician: * Ashely Mckeon MD *Licensing Representative: * Odessa Interiano Indications: POST WATCHMAN. Study [...] benzocaine spray. A transesophageal probe (SN: [id number]) was inserted by the attending retail pricing coordinator without difficulty. L ocation: CV PREP. Patient [...] benzocaine spray. A transeso phageal probe (SN: [id number]) was inserted by the attending cardiolog ist [...] on at 1408 PATIENT NAME: MARJAN FLEMING 2021-06-24 11:18:00-00:00 [phone] [place] [address] PATIENT NAME: MARJAN FLEMING ADMIT DATE: 06/17/21 ACCOUNT NO: [id number] ROOM NO: ADDIS AGE: 66 REPORT TYPE: eTRANSESOPHAGEAL ECHO REPORT SEX: F ADMITTING PHYSICIAN:Mike Lund MD ATTENDING PHYSICIAN:Mike Lund MD *[facility]* [address] [place] [address] Transesophageal Echocardiogram for Watchman Patient: Marjan Fleming Study Date: 06/17/2021 BP: Location: [facility] URN: [id number] : 1955 Age: 66 Height: / Gender: F Weight: / BMI/BSA: / *Ordering Physician: Mike Vizcaino *Interpreting Physician: Ghassan Mckeon MD Indications: Watchman procedure. Study data: Transesophageal Echocardiogram for Dewey goetz. Consent: The risks, benefits, and alternatives to the procedu re and sedation were explained to the patient and informed consent wa s obtained. Procedure: Initial setup: The patient was brought to the [facility] in the fasting state.Intravenous access was obtained. Surface E CG leads, blood pressure measurements, and pulse oximetric signals were m onitored. Sedation. Sedation was administered by anesthesiology samreen rodas. Transesophageal echocardiography was performed. A transesophagea l probe was inserted by the anesthesiologist. Images were obtained using a [employer] cardiac ultrasound machine. Location: Catheterization laboratory. Christian woodruff completion: The patient tolerated the procedure well. There were no complications. Findings Conclusions Summary: PATIENT NAME: MARJAN FLEMING 7 1. Study data: Transesophageal Echocardiogram fo r Watchman. 2. Procedure narrative: Transesophageal echocard iography was performed. A transesophageal probe was inserted by the [facility] sthesiologist. Images were obtained using a [employer] cardiac ultrasound mac dalton. Impressions: Patient with [...] stable. Right groin suture removed by this BLOCK CLEANER. No infect ion, bleeding, or hematoma. Dermabond applied and intact. Patient was provided with post-Watchman discharg e instructions. Patient is to follow up with PCP and retail pricing coordinator in 1 t o 2 weeks post discharge. Patient is to follow up with retail pricing coordinator for th e 45-day WESLEY, and for anticoagulation recommendation. Prepared and electronically signed by Ashely Mckeon MD 06/24/2021 11:18 Electronically Signed by Mike Lund MD on at 1118 PATIENT NAME: MARJAN FLEMING 7 2021-06-17 18:10:00-00:00 [id number] [address] PATIENT NAME: MARJAN FLEMING ADMIT DATE: 06/17/21 ACCOUNT NO: [id number] ROOM NO: ADDIS AGE: 66 REPORT TYPE: eECHOCARDIOGRAM REPORT SEX: F ADMITTING PHYSICIAN:Mike Lund MD ATTENDING PHYSICIAN:Mike Lund MD *[address] [address] Limited Transthoracic Echocardiogram Patient: Marjan Fleming Study Date: 06/17/2021 BP: 117 / 82 Location: [facility] URN: [id number] : 1955 Age: 66 Height: 64 in / 162.6 cm Gender: F Weight: 210 lb / 95.5 kg BMI/BSA: 36.1 kg/m 2 / 2.12 m 2 *Ordering Physician: * Bahman Chopra *Interpreting Physician: * Kevin Merino MD *Licensing Representative: * Tiarra Loja Indications: Post Watchman/Rule out pericardial effusion. Study data: Transthoracic echocardiogram, limite d study. Procedure: Transthoracic echocardiography was performed. Im age quality was adequate. Limited 2D and limited spectral Dopple r. Location: [facility]. Patient status: Outpatient. Study status: [...] 0.6 - 0.9 Right ventricle Value Ref ANALI, LAX 3.0 cm --------- RVOT Value Ref [...] he art. Prepared and electronically signed by Keivn Merino MD 06/17/2021 18:10 Electronically Signed by Kevin Merino MD on 0 06/17/21 at 1810 PATIENT NAME: MARJAN FLEMING 7 2021-06-17 11:12:00-00:00 [facility] Discharge Summary REPORT#:[id number] REPORT STATUS: Signed DATE:06/17/21 TIME: 1112 PATIENT: MARJAN FLEMING UNIT #: [id number] ROOM/BED: RAFFAELE : 56 AGE: 67 SEX: F ATTEND: René Lund MD ADM AUTHOR: Bahman Chopra * ALL edits or amendments must be made on the el [employer]/computer document * PCP PCP Discharge to: home [...] stable. Right groin suture removed by this BLOCK CLEANER. No infect ion, bleeding, or hematoma. Dermabond applied and intact. [facility]. Patient is to follow up with PCP and retail pricing coordinator in 1 to 2 we eks post discharge. Patient is to follow up with retail pricing coordinator for th e 45-day WESLEY, and for [...] breath, lightheadedness, or dizzi ness to the retail pricing coordinator. Dispo: It is medically necessary that patients [...] B/P 228/108 06/17 628 Temp 36.0 06/17 06 Pulse 62 06/17 0629 Resp 18 06/17 06 24 hour I O ending at 0700: 06/17 0700 06/16 1900 Intake Total Output Total Balance Patient 95.7 kg 97.2 kg Weight Weight Stated/Reported Standing scale Measurement Method PATIENT WEIGHT: Weight (lb): 210 Weight (oz): 15.72 Weight (kg): 95.700 General appearance: alert, awake, oriented Cardiovascular: regular rate rhythm Respiratory: clear to auscultation, no distress GI: soft, non-tender Extremities: moves all Neuro/CUSTODIAL AIDE: alert, oriented X 3 Skin: dry Wound/incision: Location: Right groin suture removed by this BLOCK CLEANER. No infect ion, bleeding, or hematoma. Dermabond applied and intact. Results Findings/Data: Laboratory Tests: 06/17 06/16 0834 1200 Coagulation Activated Coag Time (74 - 137 SEC) 249 H Serology SARS-CoV-2 Ag (Rapid) (Negative) Negative Treatments Procedures Imaging: Recent Impressions: RADIOLOGY - XR CHEST 2 V 06/16 1120 Report Impression - Status: SIGNED Entered: 06/16/2021 1135 IMPRESSION: No acute cardiopulmonary findings Impression By: IselaMPMelba Collins D.O. Discharge Instructions PCP PCP: PCP: Lele Rahman DO )( Discharge to: Home/Self Care Discharge Instructions Additional Discharge Routines: Attending Follow- Up )( Diet: Cardiac )( Activity: As Tolerated Follow-up Appointments Attending Physician: Attending Physician: Mike Lund MD Attending physician follow up timeframe: In 1-2 weeks Electronically Signed by Bahman Chopra 06/17/21 at 1613 Electronically Signed by Mike Lund MD on 07/14 at 0946 RPT #:[id number] END OF REPORT 2021-06-17 09:43:00-00:00 [phone] [place] [address] PATIENT NAME: MARJAN FLEMING ADMIT DATE: 06/17/21 ACCOUNT NO: [id number] ROOM NO: [facility] AGE: 66 REPORT TYPE: eELECTROCARDIOGRAM REPORT SEX: F ADMITTING PHYSICIAN:Mike Lund MD ATTENDING PHYSICIAN:Mike Lund MD Order: [id number] Test Reason : S/P WATCHMAN Test Date/Time [...] PATIENT NAME: MARJAN FLEMING 7 2021-06-17 08:54:00-00:00 [phone] [place] [id number] PATIENT NAME: MARJAN FLEMING ADMIT DATE: 06/17/21 ACCOUNT NO: [id number] ROOM NO: ADDIS AGE: 66 REPORT TYPE: CARDIAC CATHETERIZATION REPORT SEX: F ADMITTING PHYSICIAN:Mike Lund MD ATTENDING PHYSICIAN:Mike Lund MD PROCEDURE DATE: 06/17/2021 PROCEDURE PERFORMED: Left atrial appendage closu re using a 24 mm Watchman FLX closure device. ACCESS: Right femoral vein, 16-Tanzanian closed wit h tvkjlk-er-aqhvj suture. TEXTILE CLOTHING AND FOOTWEAR MECHANIC: Mike Lund MD. SECONDARY RADIATION ONCOLOGY NURSE: Kevin Merino MD. COMPLICATIONS: None. BLEEDING: Less [...] I accessed right femo ral vein, placed 8-Tanzanian Mccoll sheath. Subsequently, upgraded to 16-Tanzanian sheath and gave a partial dose of heparin, then took the SL1 sheat h into the SVC over a wire with [place] Fox[place] needle inside, descended under the fluor oscopy [...] I removed the Watchman sheath and the 16-Tanzanian sheath and placed eqmryd-la-tvpzi suture for hemostasis, then achieved a good hemo stasis. CONCLUSION: Left atrial appendage closure using a 24 mm Watchman FLX closure PATIENT NAME: MARJAN FLEMING 7 device. Dictated By: Mike Lund MD WT: CATH:GAYLE/RIKY/ALLA Conf#: [id number]/DID#: [id number] Authenticated by Mike Lund MD On 07/01/2021 12:30:01 PM Electronically Signed by Mike Lund MD on at 1230 PATIENT NAME: MARJAN FLEMING 7 2021-06-16 10:36:00-00:00 [id number] [place] [id number] PATIENT NAME: MARJAN FLEMING ADMIT DATE: ACCOUNT NO: [id number] ROOM NO: AGE: 66 REPORT TYPE: eELECTROCARDIOGRAM REPORT SEX: F ADMITTING PHYSICIAN: ATTENDING PHYSICIAN:Mike Lund MD Order: [id number] Test Reason : PREOP Test Date/Time Stamp: [...]
[2022-10-08 06:06] VITALS: BP 174/85; TEMP 98.6; O2SAT 98
== END 2022-10-08 06:01 | disposition home or self-care (01) ==
LOC: ER 05:45
DX: R10.84 Generalized abdominal pain (principal)

== ENCOUNTER 2022-10-08 20:56 | Emergency (ER) | payer OTHER ==
[2022-10-08] MEDS ORDERED: ACETAMINOPHEN 500 MG TAB ONE (21:13)
--- OUTSIDE RECORDS SUMMARY | 2022-10-08 21:21 | XMS REPORT | Continuity of Care Document ---
:1955 Author Organization [facility] t Address [address] [place] [address] Care Team Providers Name Role Phone Urmila [...] Attending Clinician Unavailable Robbi Bal Attending Clinician [facility] Attending Clinician Unavailable Isaias Whiteside RN Attending Clinician Unavailable TOMY MARIE Attending Clinician Unavailable Reilly Means MD Attending Clinician Ofe Shields MD Attending Clinician Tomy Marie MD Attending Clinician Doctor Unassigned, [place] Attending Clinician Unavailable Bill COLES Attending Clinician Unavailable Bill Rose Attending Clinician CHARITY MCALLISTER Attending Clinician Unavailable Charity Mcallister MD Attending Clinician GADIEL KOEHLER Attending Clinician Unavailable Mike Lund Attending Clinician Unavailable NIKOLAI REEVES Attending Clinician Unavailable Eliseo Arce MD Attending Clinician Carol Ann IZQUIERDO, Sarai Lieberman Attending Clinician [phone] Ashly Pelletier MA Attending Clinician Unavailable Dagoberto Bass MD Attending Clinician [place] Evangelista Attending Clinician Lab, [facility] Attending Clinician Unavailable Monica Rodas MA Attending Clinician Unavailable Agustina Ortiz MA Attending Clinician Unavailable Rody Maguire RN Attending Clinician Unavailable Remigio MD, Saraswathi V. Attending Clinician HEMATPOUR, BEVERLY Attending Clinician Unavailable Caridad SALGUERO, Gloria Attending Clinician Xiao RAMIREZ, Michael Corbin Attending Clinician Unavailable Team, [facility] Attending Clinician UnavailDO PORSHA Newell Attending Clinician Unavailable Gadiel Koehler MD Attending Clinician Tyrone JENKINS, Eveline Sierra Attending Clinician Eladio Colorado RN Attending Clinician Unavailable Geraldine SALGUERO, Leyda Attending Clinician [phone] Selvin RAMIREZ, Stefanie Attending Clinician Unavailable [...] S gabino [facility] [id number] 2012 STAR PLUS OON 00:00:00 [facility] [id number] 2019 DUAL COMPLETE HMO 00:00:00 [facility] [id number] 2019 PLUS 00:00:00 [facility] [id number] 2019 [facility] [place] STAR 00:00:00 [employer] MEDICARE ADV [id number] 2019 2019 00:00:00 00:00:00 Problems Condition Condition Condition Status Onset Resolution Last Treating Co mments Source Name Details Category Date Date Treatment Clinician Date Dyspnea, Dyspnea, Disease Active Unive rs unspecifie unspecifie 02-11 it y of d type d type 00:00: [place] [address] Medical Branch Gastropare Gastropare Disease Active Overview : Methodi sis sis 4-[address] 00:00: [facility] note l might be different from the original. Added automatic ally from request for surgery [id number] Dysphagia Dysphagia Disease Active Overview: Methodi 4-[address] 00:00: [facility] 00 note l might be different from the original. Added automatic ally from request for surgery [id number] CCL / EPS CCL / EPS Diagnosis [...] 1-25 Clear 00:00: Garcia 00 [facility] trimetho DA Active [facility] prim 1-25 Clear 00:00: Garcia [facility] codeine DA Active SV N/V [facility] 1-25 Clear 00:00: Garcia [facility] Metoclop Propensi Active UT ramide ty to [...] 2017- Univers INGREDI 2-08 ity of 00:00: [place] [facility] TRIMETHO DRUG Active Hives Univers [...] Natural father Diabetes [facility] Natural father Other - see comments [facility] Hy[facility] father [facility] mother [facility] Social History Social Habit Start Date Stop Date Quantity Comments Source Gender identity 2020-10-06 Identifies as Method ist 15:23:56 female gender Hospital (finding) History SDOH Muslim Alcohol Frequency Hospita l History SDOH Muslim Alcohol Std Drinks Hospit al History SDOH Muslim Alcohol Binge Hospital Sexual orientation [facility] History of Social 2022-08-26 2022-08-[address] function 00:00:00 00:00:00 Hospital Exposure to 2022-04-30 2022-05-10 Yes University of SARS-CoV-2 (event) 00:00:00 10:25:00 [facility] Tobacco use and 2022-02-11 2022-02-11 Former smokeless Uni versity of exposure 00:00:00 00:00:00 tobacco user [facility] Tobacco Comment 2022-02-11 2022-02-11 Smokes approx 1-2 Un iversity of 00:00:00 00:00:00 cigarettes per [facility] day when she Branch smokes Alcohol intake 2020-12-08 2020-12-08 Current drinker [facility] dist 00:00:00 00:00:00 of [facility] Hospital (finding) Cigarettes smoked 2020-09-05 2020-09-[address] current (pack per 00:00:00 00:00:00 Hospita l day) - Reported Cigarette 2020-09-05 2020-09-05 Muslim pack-years 00:00:00 00:00:00 Hospital Alcohol Comment 2016-09-23 2016-09-23 rare Muslim 00:00:00 00:00:00 Hospital History of tobacco 2011-09-29 User of smokeless University of use 00:00:00 tobacco [facility] Sex Assigned At [birth year] [facility] 00:00:00 00:00:00 Smoking Status Start Date Stop Date Source Ex-smoker 2022-02-11 00:00:00 2022-02-11 00:00:00 [facility] [place] [facility] Medications Ordered Filled Start Stop Current Ordering Indication Dosage Frequency Signature Comments Components Source Medication Medication Date Date Medication? Clinician (SIG) Name Name GEOFFREY Yes [id number] Take one Univers tablet 5-08 po daily ity of 00:00: [place] 00 Medical Branch raltegravir Yes [id number] 400mg Take 1 Univers (ISENTRESS) 5-08 tablet by ity of 400 mg 00:00: mouth in [place] tablet 00 the Medical morning Branch and 1 tablet in the evening. emtricitabi Yes [id number] Take one Univers ne-tenofovi 4-04 po daily ity of r alafen 00:00: [place] (DESCOVY) 00 Medical tablet Branch emtricitabi Yes [id number] Take one Univers ne-tenofovi 4-04 po daily ity of r alafen 00:00: [place] (DESCOVY) 00 Medical tablet Branch emtricitabi 2022- No [id number] Take one Univers ne-tenofovi 4-04 05-08 po daily ity of r alafen 00:00: 00:00 [place] (DESCOVY) 00 :00 Medical tablet Branch potassium 2021-05 No 10meq 10 mEq, IV Univers chloride in 07-11 Piggyback, i ty of water 10 20:00: 22:00 ONCE, 1 [place] mEq/100 mL 00 :00 dose, On Medic al RTU 10 mEq [facility] 05/10/22 at 1400, Administer over 60 Minutes, 100 mL magnesium 2021-05 No 800mg 800 mg, Uni vers oxide 07-11 Oral, ity of (MAG-OX 20:00: 19:37 ONCE, 1 [place] 400) tablet 00 :00 dose, On Medi porfirio 800 mg [facility] 05/10/22 at 1400, Routine KCL 2021-05 No 40meq 40 mEq, Univers (KLOR-CON 07-11 Oral, ity of M20) tablet 19:15: 19:37 ONCE, 1 [place] 40 mEq 00 :00 dose, On Medical [facility] 05/10/22 at 1315, JOE hydralAZINE 2021-05 No [...] 05/10/22 at 1145, JOE cefpodoxime 2021-05- No [id number] 100mg Take 1 Univers 100 mg 2-17 12-25 tablet by ity of tablet 00:00: 05:59 mouth in [place] 00 :00 the Medical morning Branch and 1 tablet in the evening. Do all this for 7 days. cefpodoxime 2021-05- No [id number] 100mg Take 1 Univers 100 mg 2-17 12-25 tablet by ity of tablet 00:00: 05:59 mouth in [place] 00 :00 the Medical morning Branch and 1 tablet in the evening. Do all this for 7 days. cefpodoxime 2021-05- No [id number] 100mg Take 1 Univers 100 mg 2-17 12-25 tablet by ity of tablet 00:00: 05:59 mouth in [place] 00 :00 the Medical [...] :00 ONCE, 1 Medical dose, On Branch [facility] 05/06/22 at 1600, JOE NaCl 0.9% [...] :00 dose, On Medi porfirio mg [place] 05/06/22 at 1515, JOE ondansetron 2021-05 Yes [id number] 1-2 U nivers 4 mg tablet 2-15 tablets ity o f 00:00: every 8 [place] 00 hours as Medical needed for Branch nausea benzonatate 2021-05 Yes [id number] 200mg Take 1 Univers 200 mg 2-15 capsule by ity of capsule 00:00: mouth 3 [place] 00 (three) Medical times Branch daily as needed for Cough. albuterol 2021-05 Yes [id number] 2{puff} Inhale 2 Univers 90 2-15 Puffs ity of mcg/actuati 00:00: every 4 [place] as on inhaler 00 (four) Medical hours as Branch needed for Wheezing or Shortness of Breath. butalbital- 2021-05 Yes [id number] 1{tbl} Take 1 Univers acetaminoph 2-15 tablet by ity of en-caff 00:00: mouth [place] 50-325-40 00 every 4 Medical mg tablet (four) Branch hours as needed (headache) . ondansetron 2021-05 Yes [id number] 1-2 U nivers 4 mg tablet 2-15 tablets ity o f 00:00: every 8 [place] 00 hours as Medical needed for Branch nausea benzonatate 2021-05 Yes [id number] 200mg Take 1 Univers 200 mg 2-15 capsule by ity of capsule 00:00: mouth 3 (three) Medical times Branch daily as needed for Cough. albuterol 2021-05 Yes [id number] 2{puff} Inhale 2 Univers 90 2-15 Puffs ity of mcg/actuati 00:00: every 4 [place] as on inhaler 00 (four) Medical hours as Branch needed for Wheezing or Shortness of Breath. butalbital- 2021-05 Yes [id number] 1{tbl} Take 1 Univers acetaminoph 2-15 tablet by ity of en-caff 00:00: mouth [place] 50-325-40 00 every 4 Medical mg tablet (four) Branch hours as needed (headache) . ondansetron 2021-05 Yes [id number] 1-2 U nivers 4 mg tablet 2-15 tablets ity o f 00:00: every 8 [place] 00 hours as Medical needed for Branch nausea benzonatate 2021-05 Yes [id number] 200mg Take 1 Univers 200 mg 2-15 capsule by ity of capsule 00:00: mouth 3 (three) Medical times Branch daily as needed for Cough. albuterol 2021-05 Yes [id number] 2{puff} Inhale 2 Univers 90 2-15 Puffs ity of mcg/actuati 00:00: every 4 [place] on inhaler 00 (four) Medical hours as Branch needed for Wheezing or Shortness of Breath. butalbital- 2021-05 Yes [id number] 1{tbl} Take 1 Univers acetaminoph 2-15 tablet by ity of en-caff 00:00: mouth [place] 50-325-40 00 every 4 Medical mg tablet (four) Branch hours as needed (headache) . ondansetron 2021-05 Yes [id number] 1-2 U nivers 4 mg tablet 2-15 tablets ity o f 00:00: every 8 [place] 00 hours as Medical needed for Branch nausea benzonatate 2021-05 Yes [id number] 200mg Take 1 Univers 200 mg 2-15 capsule by ity of capsule 00:00: mouth 3 00 (three) Medical times Branch daily as needed for Cough. albuterol 2021-05 Yes [id number] 2{puff} Inhale 2 Univers 90 2-15 Puffs ity of mcg/actuati 00:00: every 4 [place] on inhaler 00 (four) Medical hours as Branch needed for Wheezing or Shortness of Breath. butalbital- 2021-05 Yes [id number] 1{tbl} Take 1 Univers acetaminoph 2-15 tablet by ity of en-caff 00:00: mouth [place] 50-325-40 00 every 4 Medical mg tablet (four) Branch hours as needed (headache) . ondansetron 2021-05 Yes [id number] 1-2 U nivers 4 mg tablet 2-15 tablets ity o f 00:00: every 8 [place] 00 hours as Medical needed for Branch nausea benzonatate 2021-05 Yes [id number] 200mg Take 1 Univers 200 mg 2-15 capsule by ity of capsule 00:00: mouth 3 [place] 00 (three) Medical times Branch daily as needed for Cough. albuterol 2021-05 Yes [id number] 2{puff} Inhale 2 Univers 90 2-15 Puffs ity of mcg/actuati 00:00: every 4 [place] on inhaler 00 (four) Medical hours as Branch needed for Wheezing or Shortness of Breath. butalbital- 2021-05 Yes [id number] 1{tbl} Take 1 Univers acetaminoph 2-15 tablet by ity of en-caff 00:00: mouth [place] 50-325-40 00 every 4 Medical mg tablet (four) Branch hours as needed (headache) . ondansetron 2021-05 Yes [id number] 1-2 U nivers 4 mg tablet 2-15 tablets ity o f 00:00: every 8 [place] 00 hours as Medical needed for Branch nausea benzonatate 2021-05 Yes [id number] 200mg Take 1 Univers 200 mg 2-15 capsule by ity of capsule 00:00: mouth 3 [place] 00 (three) Medical times Branch daily as needed for Cough. albuterol 2021-05 Yes [id number] 2{puff} Inhale 2 Univers 90 2-15 Puffs ity of mcg/actuati 00:00: every 4 [place] on inhaler 00 (four) Medical hours as Branch needed for Wheezing or Shortness of Breath. butalbital- 2021-05 Yes [id number] 1{tbl} Take 1 Univers acetaminoph 2-15 tablet by ity of en-caff 00:00: mouth [place] 50-325-40 00 every 4 Medical mg tablet (four) Branch hours as needed (headache) . ondansetron 2021-05 Yes [id number] 1-2 U nivers 4 mg tablet 2-15 tablets ity o f 00:00: every 8 [place] 00 hours as Medical needed for Branch nausea benzonatate 2021-05 Yes [id number] 200mg Take 1 Univers 200 mg 2-15 capsule by ity of capsule 00:00: mouth 3 [place] 00 (three) Medical times Branch daily as needed for Cough. albuterol 2021-05 Yes [id number] 2{puff} Inhale 2 Univers 90 2-15 Puffs ity of mcg/actuati 00:00: every 4 [place] on inhaler 00 (four) Medical hours as Branch needed for Wheezing or Shortness of Breath. butalbital- 2021-05 Yes [id number] 1{tbl} Take 1 Univers acetaminoph 2-15 tablet by ity of en-caff 00:00: mouth [place] 50-325-40 00 every 4 Medical mg tablet (four) Branch hours as needed (headache) . ondansetron 2021-05 Yes [id number] 1-2 U nivers 4 mg tablet 2-15 tablets ity o f 00:00: every 8 [place] 00 hours as Medical needed for Branch nausea benzonatate 2021-05 Yes [id number] 200mg Take 1 Univers 200 mg 2-15 capsule by ity of capsule 00:00: mouth 3 00 (three) Medical times Branch daily as needed for Cough. albuterol 2021-05 Yes [id number] 2{puff} Inhale 2 Univers 90 2-15 Puffs ity of mcg/actuati 00:00: every 4 [place] on inhaler 00 (four) Medical hours as Branch needed for Wheezing or Shortness of Breath. butalbital- 2021-05 Yes [id number] 1{tbl} Take 1 Univers acetaminoph 2-15 tablet by ity of en-caff 00:00: mouth [place] 50-325-40 00 every 4 Medical mg tablet (four) Branch hours as needed (headache) . ondansetron 2021-05 Yes [id number] 1-2 U nivers 4 mg tablet 2-15 tablets ity o f 00:00: every 8 [place] 00 hours as Medical needed for Branch nausea benzonatate 2021-05 Yes [id number] 200mg Take 1 Univers 200 mg 2-15 capsule by ity of capsule 00:00: mouth 3 [place] 00 (three) Medical times Branch daily as needed for Cough. albuterol 2021-05 Yes [id number] 2{puff} Inhale 2 Univers 90 2-15 Puffs ity of mcg/actuati 00:00: every 4 [place] as on inhaler 00 (four) Medical hours as Branch needed for Wheezing or Shortness of Breath. butalbital- 2021-05 Yes [id number] 1{tbl} Take 1 Univers acetaminoph 2-15 tablet by ity of en-caff 00:00: mouth [place] 50-325-40 00 every 4 Medical mg tablet (four) Branch hours as needed (headache) . [facility]- No [id number] 2{tbl} Take 2 Univers r-ritonavir 2-15 12-21 tablets by i ty of (PAXLOVID, 00:00: 05:59 mouth in [place] EUA,) 300 00 :00 the Medical mg (150 mg morning Branch x 2)-100 mg and 2 tablet tablets in the evening. Do all this for 5 days. nirmatrelvi 2021-05- No [id number] 2{tbl} Take 2 Univers r-ritonavir 2-15 12-21 tablets by i ty of (PAXLOVID, 00:00: 05:59 mouth in [place] EUA,) 300 00 :00 the Medical mg (150 mg morning Branch x 2)-100 mg and 2 tablet tablets in the evening. Do all this for 5 days. nirsctrelvi 2021-05- No [id number] 2{tbl} Take 2 Univers r-ritonavir 2-15 12-21 tablets by i ty of (PAXLOVID, 00:00: 05:59 mouth in [place] EUA,) 300 00 :00 the Medical mg (150 mg morning Branch x 2)-100 mg and 2 tablet tablets in the evening. Do all this for 5 days. nirmatrelvi 2021-05- No [id number] 2{tbl} Take 2 Univers r-ritonavir 2-15 12-21 [...] 04/22/22 at 1645, Routine amoxicillin 2021-05 Yes [id number] 1{tbl} Take 1 Univers -clavulanat 2- [id number] tablet by i ty of e 875-125 00:00: mouth [place] mg per 00 every 12 Medical tablet (twelve) Branch hours. ondansetron 2021-05 Yes [id number] 4mg Take 1 Univers 4 mg 2- [id number] tablet by ity of disintegrat 00:00: mouth [place] ing tablet 00 every 8 Medica l (eight) Branch hours as needed for Nausea and Vomiting (N/V). amoxicillin 2021-05 Yes [id number] 1{tbl} Take 1 Univers -clavulanat 2- [id number] tablet by i ty of e 875-125 00:00: mouth [place] mg per 00 every 12 Medical tablet (twelve) Branch hours. ondansetron 2021-05 Yes [id number] 4mg Take 1 Univers 4 mg 2- [id number] tablet by ity of disintegrat 00:00: mouth [place] ing tablet 00 every 8 Medica l (eight) Branch hours as needed for Nausea and Vomiting (N/V). amoxicillin 2021-05 Yes [id number] 1{tbl} Take 1 Univers -clavulanat 2-01 [id number] tablet by i ty of e 875-125 00:00: mouth [place] mg per 00 every 12 Medical tablet (twelve) Branch hours. ondansetron 2021-05 Yes [id number] 4mg Take 1 Univers 4 mg 2- [id number] tablet by ity of disintegrat 00:00: mouth [place] ing tablet 00 every 8 Medica l (eight) Branch hours as needed for Nausea and Vomiting (N/V). amoxicillin 2021-05 Yes [id number] 1{tbl} Take 1 Univers -clavulanat 2-01 [id number] tablet by i ty of e 875-125 00:00: mouth [place] mg per 00 every 12 Medical tablet (twelve) Branch hours. ondansetron 2021-05 Yes [id number] 4mg Take 1 Univers 4 mg 2-01 [id number] tablet by ity of disintegrat 00:00: mouth [place] ing tablet 00 every 8 Medica l (eight) Branch hours as needed for Nausea and Vomiting (N/V). amoxicillin 2021-05 Yes [id number] 1{tbl} Take 1 Univers -clavulanat 2-01 [id number] tablet by i ty of e 875-125 00:00: mouth [place] mg per 00 every 12 Medical tablet (twelve) Branch hours. ondansetron 2021-05 Yes [id number] 4mg Take 1 Univers 4 mg 2- [id number] tablet by ity of disintegrat 00:00: mouth [place] ing tablet 00 every 8 Medica l (eight) Branch hours as needed for Nausea and Vomiting (N/V). amoxicillin 2021-05 Yes [id number] 1{tbl} Take 1 Univers -clavulanat 2-01 [id number] tablet by i ty of e 875-125 00:00: mouth [place] mg per 00 every 12 Medical tablet (twelve) Branch hours. ondansetron 2021-05 Yes [id number] 4mg Take 1 Univers 4 mg 2- [id number] tablet by ity of disintegrat 00:00: mouth [place] ing tablet 00 every 8 Medica l (eight) Branch hours as needed for Nausea and Vomiting (N/V). amoxicillin 2021-05 Yes [id number] 1{tbl} Take 1 Univers -clavulanat 2-01 [id number] tablet by i ty of e 875-125 00:00: mouth [place] mg per 00 every 12 Medical tablet (twelve) Branch hours. ondansetron 2021-05 Yes [id number] 4mg Take 1 Univers 4 mg 2-01 [id number] tablet by ity of disintegrat 00:00: mouth [place] ing tablet 00 every 8 Medica l (eight) Branch hours as needed for Nausea and Vomiting (N/V). amoxicillin 2021-05 Yes [id number] 1{tbl} Take 1 Univers -clavulanat 2-01 [id number] tablet by i ty of e 875-125 00:00: mouth [place] mg per 00 every 12 Medical tablet (twelve) Branch hours. ondansetron 2021-05 Yes [id number] 4mg Take 1 Univers 4 mg 2-01 [id number] tablet by ity of disintegrat 00:00: mouth [place] ing tablet 00 every 8 Medica l (eight) Branch hours as needed for Nausea and Vomiting (N/V). amoxicillin 2021-05 Yes [id number] 1{tbl} Take 1 Univers -clavulanat 2-01 [id number] tablet by i ty of e 875-125 00:00: mouth [place] mg per 00 every 12 Medical tablet (twelve) Branch hours. ondansetron 2021-05 Yes [id number] 4mg Take 1 Univers 4 mg 2- 288866 tablet by ity of disintegrat 00:00: mouth [place] ing tablet 00 every 8 Medica l (eight) Branch hours as needed for Nausea and Vomiting (N/V). amoxicillin 2021-05 Yes [id number] 1{tbl} Take 1 Univers -clavulanat 2-01 [id number] tablet by i ty of e 875-125 00:00: mouth [place] mg per 00 every 12 Medical tablet (twelve) Branch hours. ondansetron 2021-05 Yes [id number] 4mg Take 1 Univers 4 mg 2- [id number] tablet by ity of disintegrat 00:00: mouth [place] ing tablet 00 every 8 Medica l (eight) Branch hours as needed for Nausea and Vomiting (N/V). amoxicillin 2021-05 Yes [id number] 1{tbl} Take 1 Univers -clavulanat 2-01 [id number] tablet by i ty of e 875-125 00:00: mouth [place] mg per 00 every 12 Medical tablet (twelve) Branch hours. ondansetron 2021-05 Yes [id number] 4mg Take 1 Univers 4 mg 2-01 [id number] tablet by ity of disintegrat 00:00: mouth [place] ing tablet 00 every 8 Medica l (eight) Branch hours as needed for Nausea and Vomiting (N/V). zoster 2021-05- No [id number] .5mL 0.5 mL by Univers vaccine, 0-14 10-15 9104 Intramuscu ity of recombinant 00:00: 04:59 lar route [place] (SHINGRIX, 00 :00 once now Medic al PF,) for 1 Branch injection dose. And repeat in 2-6 months zoster 2021-05- No [id number] .5mL 0.5 mL by Univers vaccine, 0- 9104 Intramuscu ity of recombinant 00:00: 04:59 lar route [place] (SHINGRIX, 00 :00 once now Medic al PF,) for 1 Branch injection dose. And repeat in 2-6 months zoster 2021-05- No [id number] .5mL 0.5 mL by Univers vaccine, 0- [...] o f 1 mg tablet 19:28: at [place] [address] bedtime. Medical Branch traZODone Yes 50mg Take 50 mg Un matt 100 mg 9-27 by mouth ity of tablet 19:28: at [place] [address] bedtime. Medical Branch hydralAZINE Yes 25mg Take [...] o f 1 mg tablet 19:28: at [place] [address] bedtime. Medical Branch traZODone 2021-0 Yes 50mg Take 50 mg Un matt 100 mg 9- by mouth ity of tablet 19:28: at [place] [address] bedtime. Medical Branch hydralAZINE 2021-0 Yes 25mg [...] 100 mg 04 (two) Medical tablet times [place] daily. amLODIPine 2021-0 Yes 10mg Take 10 mg U nivers (NORVASC) 9-27 by mouth ity of 10 mg 19:28: daily. [place] tablet 04 Medical Branch clonazePAM 2021-0 Yes 1mg Take 1 mg Un matt (KLONOPIN) 9- by mouth ity o f 1 mg tablet 19:28: at [place] [address] bedtime. Medical Branch traZODone 2021-0 Yes 50mg Take 50 mg Un matt 100 mg 9-27 by mouth ity of tablet 19:28: at [place] [address] bedtime. Medical Branch hydralAZINE 2021-0 Yes 25mg [...] o f 1 mg tablet 19:28: at [place] [address] bedtime. Medical Branch traZODone 2021-0 Yes 50mg Take 50 mg Un matt 100 mg 9-27 by mouth ity of tablet 19:28: at [place] [address] bedtime. Medical Branch hydralAZINE 2021-0 Yes 25mg [...] mouth ity of 10 mg 19:28: daily. [place] tablet 04 Medical Branch clonazePAM 2021-0 Yes 1mg Take 1 mg Un matt (KLONOPIN) 9-27 by mouth ity o f 1 mg tablet 19:28: at [place] [address] bedtime. Medical Branch traZODone 2-0 Yes 50mg Take 50 mg Un matt 100 mg 9-27 by mouth ity of tablet 19:28: at [place] [address] bedtime. Medical Branch hydralAZINE 2022-0 Yes 25mg [...] o f 1 mg tablet 19:28: at [place] [address] bedtime. Medical Branch traZODone 2-0 Yes 50mg Take 50 mg Un matt 100 mg 9-27 by mouth ity of tablet 19:28: at [place] [address] bedtime. Medical Branch hydralAZINE 2-0 Yes 25mg [...] o f 1 mg tablet 19:28: at [place] [address] bedtime. Medical Branch traZODone 2021-0 Yes 50mg Take 50 mg Un matt 100 mg 9-27 by mouth ity of tablet 19:28: at [place] [address] bedtime. Medical Branch hydralAZINE 2021-0 Yes 25mg [...] o f 1 mg tablet 19:28: at [place] [address] bedtime. Medical Branch traZODone 2021-0 Yes 50mg Take 50 mg Un matt 100 mg 9-27 by mouth ity of tablet 19:28: at [place] [address] bedtime. Medical Branch hydralAZINE 2021-0 Yes 25mg [...] o f 1 mg tablet 19:28: at [place] [address] bedtime. Medical Branch traZODone 2021-0 Yes 50mg Take 50 mg Un matt 100 mg 9-27 by mouth ity of tablet 19:28: at [place] [address] bedtime. Medical Branch hydralAZINE 2021-0 Yes 25mg [...] o f 1 mg tablet 19:28: at [place] [address] bedtime. Medical Branch traZODone 2021-0 Yes 50mg Take 50 mg Un matt 100 mg 9- by mouth ity of tablet 19:28: at [place] [address] bedtime. Medical Branch hydralAZINE 2021-0 Yes 25mg [...] o f 1 mg tablet 19:28: at [place] [address] bedtime. Medical Branch traZODone 2021-0 Yes 50mg Take 50 mg Un matt 100 mg 9-27 by mouth ity of tablet 19:28: at [place] [address] bedtime. Medical Branch hydralAZINE 2021-0 Yes 25mg [...] o f 1 mg tablet 19:28: at [place] [address] bedtime. Medical Branch traZODone 2021-0 Yes 50mg Take 50 mg Un matt 100 mg 9-27 by mouth ity of tablet 19:28: at [place] [address] bedtime. Medical Branch hydralAZINE 2021-0 Yes 25mg [...] o f 1 mg tablet 19:28: at [place] [address] bedtime. Medical Branch traZODone 2021-0 Yes 50mg Take 50 mg Un matt 100 mg 9-27 by mouth ity of tablet 19:28: at [place] [address] bedtime. Medical Branch hydralAZINE 2021-0 Yes 25mg [...] 100 mg 04 (two) Medical tablet times [place] daily. amLODIPine 2021-0 Yes 10mg Take 10 mg U nivers (NORVASC) 9-27 by mouth ity of 10 mg 19:28: daily. [place] tablet 04 Medical Branch clonazePAM 2021-0 Yes 1mg Take 1 mg Un matt (KLONOPIN) 9-27 by mouth ity o f 1 mg tablet 19:28: at [place] [address] bedtime. Medical Branch traZODone 2021-0 Yes 50mg Take 50 mg Un matt 100 mg 9-27 by mouth ity of tablet 19:28: at [place] [address] bedtime. Medical Branch hydralAZINE 2021-0 Yes 25mg [...] o f 1 mg tablet 19:28: at [place] [address] bedtime. Medical Branch traZODone 2021-0 Yes 50mg Take 50 mg Un matt 100 mg 9-27 by mouth ity of tablet 19:28: at [place] [address] bedtime. Medical Branch hydralAZINE 2021-0 Yes 25mg [...] 100 mg 04 (two) Medical tablet times [place] daily. amLODIPine 2021-0 Yes 10mg Take 10 mg U nivers (NORVASC) 9-27 by mouth ity of 10 mg 19:28: daily. [place] tablet 04 Medical Branch clonazePAM 2021-0 Yes 1mg Take 1 mg Un matt (KLONOPIN) 9-27 by mouth ity o f 1 mg tablet 19:28: at [place] [address] bedtime. Medical Branch traZODone 2021-0 Yes 50mg Take 50 mg Un matt 100 mg 9-27 by mouth ity of tablet 19:28: at [place] [address] bedtime. Medical Branch hydralAZINE 2021-0 Yes 25mg [...] o f 1 mg tablet 19:28: at [place] [address] bedtime. Medical Branch traZODone 2-0 Yes 50mg Take 50 mg Un matt 100 mg 9-27 by mouth ity of tablet 19:28: at [place] [address] bedtime. Medical Branch hydralAZINE 2021-0 Yes 25mg [...] o f 1 mg tablet 19:28: at [place] [address] bedtime. Medical Branch traZODone 2-0 Yes 50mg Take 50 mg Un matt 100 mg 9-27 by mouth ity of tablet 19:28: at [place] [address] bedtime. Medical Branch hydralAZINE 2-0 Yes 25mg [...] mouth ity of 10 mg 19:28: daily. [place] tablet 04 [facility] Branch clonazePAM 0 Yes 1mg Take 1 mg Un matt (KLONOPIN) 02-16 by mouth ity o f 1 mg tablet 19:28: at [place] [address] bedtime. Medical Branch traZODone 0 Yes 50mg Take 50 mg Un matt 100 mg 02-16 by mouth ity of tablet 19:28: at [place] [address] bedtime. Medical Branch cefpodoxime 2021-0 202- No [id number] 200mg Take 1 [facility] 200 mg 02-16 tablet by ity of tablet 00:00: 04:59 mouth in [place] 00 :00 the Medical morning Branch and 1 tablet in the evening. Do all this for 3 days. cefpodoxime 2021-0 2022- No [id number] 200mg Take 1 [facility] 200 mg 02-16 tablet by ity of tablet 00:00: 04:59 mouth in [place] 00 :00 the [facility] morning [...] Sherrie (ESGIC) 06 Starting Medical 50-325-40 on [facility] Branch mg tablet 1 02/13/22 [...] 19:00: First dose [place] 00 on Tue [facility] 02/12/22 at Branch 1400, Until Discontinu ed, Routine HYDROmorpho Yes 4mg 4 mg, Unive rs ne 02-12 Oral, ity of (DILAUDID) 17:37: Q6HPRN, [place] tablet 4 mg 07 Starting Medi porfirio on Tue [place] 02/12/22 at 1237, Until Discontinu ed, Routine, Pain (scale 4-6) morpHINE (2 2021- No 2mg 2 mg, Slow Univers mg/mL) 02-12 IV Push, ity of injection 2 17:36: 20:36 Q6HPRN, [place] mg 46 :24 Starting Medical on Tue [place] 02/12/22 at 1236, Until [place] 02/14/22 at 1536, Routine, Pain (scale 7-10) cefTRIAXone 2021-0 202- No 2000mg 2,000 mg, Univers (ROCEPHIN) 02-12 IV ity of 2,000 mg in 17:00: 18:24 Piggyback, [place] NaCl 0.9% 00 :00 Q24H ABX, Medic [...] [place] mg 37 Starting Medical on [facility] Branch 02/11/22 at 1618, Until Discontinu ed, Routine, SBP > 170 nystatin-tr 2021-0 Yes Topical, Un matt iamcinolone 02-11 TID, First it y of (MYCOLOG) 19:00: dose on [place] cream 00 [facility] Medical 02/11/22 at Branch 1400, Until Discontinu ed, Routine busPIRone 2021-0 Yes 30mg 30 mg, Univer s (BUSPAR) 02-11 Oral, BID, ity o f tablet 30 18:00: First dose [place] mg 00 on [facility] Medical 02/11/22 at Branch 1300, Until Discontinu ed, Routine raltegravir 2021-0 Yes 400mg 400 mg, Un matt (ISENTRESS) 02-11 Oral, BID, it y of tablet 400 18:00: First dose [place] mg 00 on [facility] Medical 02/11/22 at Branch 1300, Until Discontinu ed, JOE metoprolol 2021-0 Yes 100mg 100 mg, Uni vers tartrate 02-11 Oral, BID, ity o f (LOPRESSOR) 18:00: First dose [place] tablet 100 00 on [facility] Medical mg 02/11/22 at Branch 1300, Until Discontinu ed, Routine lisinopriL 2021-0 Yes 40mg 40 mg, Unive rs (PRINIVIL,Z 02-11 Oral, BID, it y of ESTRIL) 18:00: First [place] tablet 40 00 on [facility] Medical mg 02/11/22 at Branch 1300, Until Discontinu ed, Routine emtricitabi 2021-0 Yes 1{tbl} 1 tablet, Univers ne-tenofovi 02-11 Oral, ity of r alafen 18:00: DAILY, [place] (DESCOVY) 00 First dose Medi porfirio tablet 1 on [facility] Branch tablet 02/11/22 at 1300, Until Discontinu ed, Routine ipratropium 2021-0 Yes .5mg 0.5 mg, Uni vers (ATROVENT) 02-11 Inhalation ity of 0.02 % 17:57: , QIDPRN, [place] nebulizer 10 Starting Medica l solution on [facility] Branch 0.5 mg 02/11/22 at 1257, Until Discontinu ed, Routine, Wheezing, Shortness of Breath amLODIPine Yes 10mg 10 mg, Unive rs (NORVASC) 02-11 Oral, ity of tablet 10 17:30: DAILY, [place] mg 00 First dose Medical (after Branch last modificati on) on [facility] 02/11/22 at 1230, Until Discontinu ed, Routine hydrALAZINE 2021- No 25mg 25 mg, Uni vers (APRESOLINE 02-11 Oral, ity of ) tablet 25 17:30: 12:54 DAILY, [place] mg 00 :55 First dose Medical (after Branch last modificati on) on [facility] 02/11/22 at 1230, Until Discontinu ed, Routine HYDROcodone 2021- No 1{tbl} 1 tablet, Univers -acetaminop 02-11 Oral, ity of hen (NORCO 14:11: 17:37 Q6HPRN, [place] 5) 5-325 mg 03 :24 Starting Medi porfirio tablet 1 on [facility] Branch tablet 02/11/22 at 0911, Until Tue02/12/22 at 1237, Routine, Pain (scale 7-10) melatonin Yes 3mg 3 mg, Univers (MELATIN) 02-11 Oral, ity of tablet 3 mg 14:08: QHSPRN, [place] 17 Starting Medical on [facility] Branch 02/11/22 at 0908, Until Discontinu ed, Routine, Insomnia acetaminoph 2021- No 1{tbl} 1 tablet, Univers en-codeine 02-11 Oral, ity of (TYLENOL 14:06: 17:37 Q6HPRN, [place] #3) 300-30 19 :24 Starting Medic al mg tablet 1 on [facility] Branch tablet 02/11/22 at 0906, Until [...] 02-11 Oral, ity of (TYLENOL) 14:04: Q6HPRN, [place] tablet 650 37 Starting Medic al mg [...] daily. [place] tablet 54 Medical Branch amLODIPine 2021-0 Yes 10mg Take 10 mg U nivers (NORVASC) 02-11 by mouth ity of 10 mg 09:10: daily. [place] tablet 54 Medical Branch piperacilli 2021-0 202- [...] of therapy: 72 hours iopamidol 2021- No [id number] 60mL 60 mL, Univers (ISOVUE 02-11 Intravenou [...] Branch 02/11/22 at 0015, JOE emtricitabi Yes [id number] Take one Univers ne-tenofovi 9-12 po daily ity of r alafen 00:00: [place] (DESCOVY) 00 Medical tablet Branch emtricitabi Yes [id number] Take one Univers ne-tenofovi 9-12 po daily ity of r alafen 00:00: [place] (DESCOVY) 00 Medical tablet Branch [facility] [id number] Take one Univers ne-tenofovi 9-12 po daily ity of r alafen 00:00: [place] (DESCOVY) 00 Medical tablet Branch emtricita Yes [id number] Take one Univers ne-tenofovi 9-12 po daily ity of r alafen 00:00: [place] (DESCOVY) 00 Medical tablet Branch emtricita Yes [id number] Take one Univers ne-tenofovi 9-12 po daily ity of r alafen 00:00: [place] (DESCOVY) 00 Medical tablet Branch emtricita Yes [id number] Take one Univers ne-tenofovi 9-12 po daily ity of r alafen 00:00: [place] (DESCOVY) 00 Medical tablet [facility] [id number] Take one Univers ne-tenofovi 9-12 po daily ity of r alafen 00:00: [place] (DESCOVY) 00 Medical tablet [facility] [id number] Take one Univers ne-tenofovi 9-12 po daily ity of r alafen 00:00: [place] (DESCOVY) 00 Medical tablet Branch emtricita Yes [id number] Take one Univers ne-tenofovi 9-12 po daily ity of r alafen 00:00: [place] (DESCOVY) 00 Medical tablet Branch emtricita Yes [id number] Take one Univers ne-tenofovi 9-12 po daily ity of r alafen 00:00: [place] (DESCOVY) 00 Medical tablet Branch emtricita Yes [id number] Take one Univers ne-tenofovi 9-12 po daily ity of r alafen 00:00: [place] (DESCOVY) 00 Medical tablet Branch emtricita Yes [id number] Take one Univers ne-tenofovi 9-12 po daily ity of r alafen 00:00: [place] (DESCOVY) 00 Medical tablet Branch emtricita Yes [id number] Take one Univers ne-tenofovi 9-12 po daily ity of r alafen 00:00: [place] (DESCOVY) 00 Medical tablet Branch emtricitabi 0 Yes [id number] Take one Univers ne-tenofovi 9-12 po daily ity of r alafen 00:00: [place] (DESCOVY) 00 Medical tablet Branch emtricitabi 0 Yes [id number] Take one Univers ne-tenofovi 9-12 po daily ity of r alafen 00:00: [place] (DESCOVY) 00 Medical tablet Branch emtricitabi 0 Yes [id number] Take one Univers ne-tenofovi 9-12 po daily ity of r alafen 00:00: [place] (DESCOVY) 00 Medical tablet Branch emtricitabi Yes [id number] Take one Univers ne-tenofovi 9-12 po daily ity of r alafen 00:00: [place] (DESCOVY) 00 Medical tablet Branch emtricitabi 2023- No [id number] Take one Univers ne-tenofovi 9-12 04-04 po daily ity of r alafen 00:00: 00:00 [place] (DESCOVY) 00 :00 Medical tablet Branch emtricitabi 0 2023- No [id number] Take one Univers ne-tenofovi 9-12 04-04 po daily ity of r alafen 00:00: 00:00 [place] (DESCOVY) 00 :00 Medical tablet Branch naproxen 2021-0 Yes [id number] 500mg Take 1 U nivers (NAPROSYN) 7-24 tablet by ity of 500 mg 00:00: mouth in [place] tablet 00 the Medical morning Branch and 1 tablet in the evening. Take with meals. methocarbam 2021-0 Yes [id number] 500mg Take 1 Univers oL 500 mg 7-24 tablet by ity o f tablet 00:00: mouth 4 [place] 00 (four) Medical times Branch daily. naproxen 2021-0 Yes [id number] 500mg Take 1 U nivers (NAPROSYN) 7-24 tablet by ity of 500 mg 00:00: mouth in [place] tablet 00 the Medical morning Branch and 1 tablet in the evening. Take with meals. methocarbam 2021-0 Yes [id number] 500mg Take 1 Univers oL 500 mg 7-24 tablet by ity o f tablet 00:00: mouth 4 [place] 00 (four) Medical times [place] daily. naproxen 2021-0 Yes [id number] 500mg Take 1 U nivers (NAPROSYN) 7-24 tablet by ity of 500 mg 00:00: mouth in [place] tablet 00 the Medical morning Branch and 1 tablet in the evening. Take with meals. methocarbam 2021-0 Yes [id number] 500mg Take 1 Univers oL 500 mg 7-24 tablet by ity o f tablet 00:00: mouth 4 [place] 00 ([facility]) Medical times Branch daily. naproxen 2021-2021- No [id number] 500mg Take 1 Univers (NAPROSYN) 7-24 10-14 tablet by ity of 500 mg 00:00: 00:00 mouth in [place] tablet 00 :00 the Medical morning Branch and 1 tablet in the evening. Take with meals. methocarbam 2021- No [id number] 500mg Take 1 Univers oL 500 mg 7-24 10-14 tablet by ity of tablet 00:00: 00:00 mouth 4 [place] 00 :00 ([facility]) [facility] times [place] daily. naproxen 2021-2021- No [id number] 500mg Take 1 Univers (NAPROSYN) 7-24 10-14 tablet by ity of 500 mg 00:00: 00:00 mouth in [place] tablet 00 :00 the [facility] morning Branch and 1 tablet in the evening. Take with meals. methocarbam 2021- No [id number] 500mg Take 1 Univers oL 500 mg 7-24 10-14 tablet by ity of tablet 00:00: 00:00 mouth 4 [place] 00 :00 ([facility]) Medical times [place] daily. esomeprazol 2021- No 40mg Take 40 [...] daily. Branch traZODONE 2021- No Take by [facility] ers (DESYREL) 11-20 mouth at ity o f 10 mg/mL 09:10: 00:00 bedtime. [place] oral 28 :00 Medical suspension Branch hydralAZINE Yes 25mg Take 25 mg Univers (APRESOLINE 11-20 by mouth ity of ) 25 mg 08:47: daily. [place] tablet 47 Medical Branch cephALEXin 2021- No [id number] 500mg Take 1 Univers (KEFLEX) 10-24 capsule [...] 7-10). Indication s: acute pain buPROPion Yes [id number] 150mg Take 1 U nivers XL 4-12 tablet by ity of (WELLBUTRIN 00:00: mouth [place] XL) 150 mg 00 daily. Medical 24 hr Branch tablet busPIRone Yes [id number] 30mg Take 1 Un matt 30 mg 4-12 tablet by ity of tablet 00:00: mouth 2 [place] 00 (two) Medical times Branch daily. SERTraline Yes [id number] 200mg Take 2 Univers 100 mg 4-12 tablets by ity of tablet 00:00: mouth [place] 00 daily. Medical Branch buPROPion Yes [id number] 150mg Take 1 U nivers XL 4-12 tablet by ity of (WELLBUTRIN 00:00: mouth [place] XL) 150 mg 00 daily. Medical 24 hr Branch tablet busPIRone Yes [id number] 30mg Take 1 Un matt 30 mg 4-12 tablet by ity of tablet 00:00: mouth 2 [place] 00 (two) Medical times Branch daily. SERTraline 2021-0 Yes [id number] 200mg Take 2 Univers 100 mg 4-12 tablets by ity of tablet 00:00: mouth [place] 00 daily. Medical Branch buPROPion 2021-0 Yes [id number] 150mg Take 1 U nivers XL 4-12 tablet by ity of (WELLBUTRIN 00:00: mouth [place] XL) 150 mg 00 daily. Medical 24 hr Branch tablet busPIRone 2021-0 Yes [id number] 30mg Take 1 Un matt 30 mg 4-12 tablet by ity of tablet 00:00: mouth 2 [place] 00 (two) Medical times Branch daily. SERTraline 2021-0 Yes [id number] 200mg Take 2 Univers 100 mg 4-12 tablets by ity of tablet 00:00: mouth [place] 00 daily. Medical Branch buPROPion 2021-0 Yes [id number] 150mg Take 1 U nivers XL 4-12 tablet by ity of (WELLBUTRIN 00:00: mouth [place] XL) 150 mg 00 daily. Medical 24 hr Branch tablet busPIRone 2021-0 Yes [id number] 30mg Take 1 Un matt 30 mg 4-12 tablet by ity of tablet 00:00: mouth 2 00 (two) Medical times Branch daily. SERTraline 2021-0 Yes [id number] 200mg Take 2 Univers 100 mg 4-12 tablets by ity of tablet 00:00: mouth [place] 00 daily. Medical Branch buPROPion 2021-0 Yes [id number] 150mg Take 1 U nivers XL 4-12 tablet by ity of (WELLBUTRIN 00:00: mouth [place] XL) 150 mg 00 daily. Medical 24 hr Branch tablet busPIRone 2021-0 Yes [id number] 30mg Take 1 Un matt 30 mg 4-12 tablet by ity of tablet 00:00: mouth 2 [place] 00 (two) Medical times Branch daily. SERTraline 2021-0 Yes [id number] 200mg Take 2 Univers 100 mg 4-12 tablets by ity of tablet 00:00: mouth [place] 00 daily. Medical Branch buPROPion 2021-0 Yes [id number] 150mg Take 1 U nivers XL 4-12 tablet by ity of (WELLBUTRIN 00:00: mouth [place] XL) 150 mg 00 daily. Medical 24 hr Branch tablet busPIRone 2021-0 Yes [id number] 30mg Take 1 Un matt 30 mg 4-12 tablet by ity of tablet 00:00: mouth 2 [place] 00 (two) Medical times Branch daily. SERTraline 2021-0 Yes [id number] 200mg Take 2 Univers 100 mg 4-12 tablets by ity of tablet 00:00: mouth [place] 00 daily. Medical Branch buPROPion 2021-0 Yes [id number] 150mg Take 1 U nivers XL 4-12 tablet by ity of (WELLBUTRIN 00:00: mouth [place] XL) 150 mg 00 daily. Medical 24 hr Branch tablet busPIRone 2021-0 Yes [id number] 30mg Take 1 Un matt 30 mg 4-12 tablet by ity of tablet 00:00: mouth 2 [place] 00 (two) Medical times Branch daily. SERTraline 2021-0 Yes [id number] 200mg Take 2 Univers 100 mg 4-12 tablets by ity of tablet 00:00: mouth [place] 00 daily. Medical Branch buPROPion 2021-0 Yes [id number] 150mg Take 1 U nivers XL 4-12 tablet by ity of (WELLBUTRIN 00:00: mouth [place] XL) 150 mg 00 daily. Medical 24 hr Branch tablet busPIRone 2021-0 Yes [id number] 30mg Take 1 Un matt 30 mg 4-12 tablet by ity of tablet 00:00: mouth 2 [place] 00 (two) Medical times Branch daily. SERTraline 2021-0 Yes [id number] 200mg Take 2 Univers 100 mg 4-12 tablets by ity of tablet 00:00: mouth [place] 00 daily. Medical Branch buPROPion 2021-0 Yes [id number] 150mg Take 1 U nivers XL 4-12 tablet by ity of (WELLBUTRIN 00:00: mouth [place] XL) 150 mg 00 daily. Medical 24 hr Branch tablet busPIRone 2021-0 Yes [id number] 30mg Take 1 Un matt 30 mg 4-12 tablet by ity of tablet 00:00: mouth 2 [place] 00 (two) Medical times Branch daily. SERTraline 2021-0 Yes [id number] 200mg Take 2 Univers 100 mg 4-12 tablets by ity of tablet 00:00: mouth [place] 00 daily. Medical Branch buPROPion 2021-0 Yes [id number] 150mg Take 1 U nivers XL 4-12 tablet by ity of (WELLBUTRIN 00:00: mouth [place] XL) 150 mg 00 daily. Medical 24 hr Branch tablet busPIRone 2021-0 Yes [id number] 30mg Take 1 Un matt 30 mg 4-12 tablet by ity of tablet 00:00: mouth 2 00 (two) Medical times Branch daily. SERTraline 2021-0 Yes [id number] 200mg Take 2 Univers 100 mg 4-12 tablets by ity of tablet 00:00: mouth [place] 00 daily. Medical Branch buPROPion 2021-0 Yes [id number] 150mg Take 1 U nivers XL 4-12 tablet by ity of (WELLBUTRIN 00:00: mouth [place] XL) 150 mg 00 daily. Medical 24 hr Branch tablet busPIRone 2021-0 Yes [id number] 30mg Take 1 Un matt 30 mg 4-12 tablet by ity of tablet 00:00: mouth 2 (two) Medical times Branch daily. SERTraline 2021-0 Yes [id number] 200mg Take 2 Univers 100 mg 4-12 tablets by ity of tablet 00:00: mouth [place] 00 daily. Medical Branch buPROPion 2021-0 Yes [id number] 150mg Take 1 U nivers XL 4-12 tablet by ity of (WELLBUTRIN 00:00: mouth [place] XL) 150 mg 00 daily. Medical 24 hr Branch tablet busPIRone 2021-0 Yes [id number] 30mg Take 1 Un matt 30 mg 4-12 tablet by ity of tablet 00:00: mouth 2 (two) Medical times Branch daily. SERTraline 2021-0 Yes [id number] 200mg Take 2 Univers 100 mg 4-12 tablets by ity of tablet 00:00: mouth [place] 00 daily. Medical Branch buPROPion 2021-0 Yes [id number] 150mg Take 1 U nivers XL 4-12 tablet by ity of (WELLBUTRIN 00:00: mouth [place] XL) 150 mg 00 daily. Medical 24 hr Branch tablet busPIRone 2021-0 Yes [id number] 30mg Take 1 Un matt 30 mg 4-12 tablet by ity of tablet 00:00: mouth 2 (two) Medical times Branch daily. SERTraline 2021-0 Yes [id number] 200mg Take 2 Univers 100 mg 4-12 tablets by ity of tablet 00:00: mouth [place] 00 daily. Medical Branch buPROPion 2021-0 Yes [id number] 150mg Take 1 U nivers XL 4-12 tablet by ity of (WELLBUTRIN 00:00: mouth [place] XL) 150 mg 00 daily. Medical 24 hr Branch tablet busPIRone 2021-0 Yes [id number] 30mg Take 1 Un matt 30 mg 4-12 tablet by ity of tablet 00:00: mouth 2 [place] 00 (two) Medical times Branch daily. SERTraline 2021-0 Yes [id number] 200mg Take 2 Univers 100 mg 4-12 tablets by ity of tablet 00:00: mouth [place] 00 daily. Medical Branch buPROPion 2021-0 Yes [id number] 150mg Take 1 U nivers XL 4-12 tablet by ity of (WELLBUTRIN 00:00: mouth [place] XL) 150 mg 00 daily. Medical 24 hr Branch tablet busPIRone 2021-0 Yes [id number] 30mg Take 1 Un matt 30 mg 4-12 tablet by ity of tablet 00:00: mouth 2 [place] 00 (two) Medical times Branch daily. SERTraline 2021-0 Yes [id number] 200mg Take 2 Univers 100 mg 4-12 tablets by ity of tablet 00:00: mouth [place] 00 daily. Medical Branch buPROPion 2021-0 Yes [id number] 150mg Take 1 U nivers XL 4-12 tablet by ity of (WELLBUTRIN 00:00: mouth [place] XL) 150 mg 00 daily. Medical 24 hr Branch tablet busPIRone 2021-0 Yes [id number] 30mg Take 1 Un matt 30 mg 4-12 tablet by ity of tablet 00:00: mouth 2 [place] 00 (two) Medical times Branch daily. SERTraline 2021-0 Yes [id number] 200mg Take 2 Univers 100 mg 4-12 tablets by ity of tablet 00:00: mouth [place] 00 daily. Medical Branch buPROPion 2021-0 Yes [id number] 150mg Take 1 U nivers XL 4-12 tablet by ity of (WELLBUTRIN 00:00: mouth [place] XL) 150 mg 00 daily. Medical 24 hr Branch tablet busPIRone 2021-0 Yes [id number] 30mg Take 1 Un matt 30 mg 4-12 tablet by ity of tablet 00:00: mouth 2 [place] 00 (two) Medical times Branch daily. SERTraline 2021-0 Yes [id number] 200mg Take 2 Univers 100 mg 4-12 tablets by ity of tablet 00:00: mouth [place] 00 daily. Medical Branch buPROPion 0 Yes [id number] 150mg Take 1 U nivers XL 4-12 tablet by ity of (WELLBUTRIN 00:00: mouth [place] XL) 150 mg 00 daily. Medical 24 hr Branch tablet busPIRone 2021-0 Yes [id number] 30mg Take 1 Un matt 30 mg 4-12 tablet by ity of tablet 00:00: mouth 2 [place] 00 (two) Medical times Branch daily. SERTraline 0 Yes [id number] 200mg Take 2 Univers 100 mg 4-12 tablets by ity of tablet 00:00: mouth [place] 00 daily. Medical Branch buPROPion 0 Yes [id number] 150mg Take 1 U nivers XL 4-12 tablet by ity of (WELLBUTRIN 00:00: mouth [place] XL) 150 mg 00 daily. Medical 24 hr Branch tablet busPIRone 2021-0 Yes [id number] 30mg Take 1 Un matt 30 mg 4-12 tablet by ity of tablet 00:00: mouth 2 [place] 00 (two) Medical times Branch daily. SERTraline 2021-0 Yes [id number] 200mg Take 2 Univers 100 mg 4-12 tablets by ity of tablet 00:00: mouth [place] 00 daily. Medical Branch buPROPion 0 Yes [id number] 150mg Take 1 U nivers XL 4-12 tablet by ity of (WELLBUTRIN 00:00: mouth [place] XL) 150 mg 00 daily. Medical 24 hr Branch tablet busPIRone 2021-0 Yes [id number] 30mg Take 1 Un matt 30 mg 4-12 tablet by ity of tablet 00:00: mouth 2 [place] 00 (two) Medical times Branch daily. SERTraline 2021-0 Yes [id number] 200mg Take 2 Univers 100 mg 4-12 tablets by ity of tablet 00:00: mouth [place] 00 daily. Medical Branch buPROPion 2021-0 Yes [id number] 150mg Take 1 U nivers XL 4-12 tablet by ity of (WELLBUTRIN 00:00: mouth [place] XL) 150 mg 00 daily. Medical 24 hr Branch tablet busPIRone 2021-0 Yes [id number] 30mg Take 1 Un matt 30 mg 4-12 tablet by ity of tablet 00:00: mouth 2 [place] 00 (two) Medical times Branch daily. SERTraline 2021-0 Yes [id number] 200mg Take 2 Univers 100 mg 4-12 tablets by ity of tablet 00:00: mouth [place] 00 daily. Medical Branch raltegravir 2021-0 Yes [id number] 400mg Take 1 Univers (ISENTRESS) 3-28 tablet by ity of 400 mg 00:00: mouth 2 [place] tablet 00 (two) Medical times Branch daily. raltegravir 2021-0 Yes [id number] 400mg Take 1 Univers (ISENTRESS) 3-28 tablet by ity of 400 mg 00:00: mouth 2 [place] tablet 00 (two) Medical times Branch daily. raltegravir 2021-0 Yes [id number] 400mg Take 1 Univers (ISENTRESS) 3-28 tablet by ity of 400 mg 00:00: mouth 2 [place] tablet 00 (two) Medical times Branch daily. raltegravir 2021-0 Yes [id number] 400mg Take 1 Univers (ISENTRESS) 3-28 tablet by ity of 400 mg 00:00: mouth 2 [place] tablet 00 (two) Medical times Branch daily. raltegravir 2021-0 Yes [id number] 400mg Take 1 Univers (ISENTRESS) 3-28 tablet by ity of 400 mg 00:00: mouth 2 [place] tablet 00 (two) Medical times Branch daily. raltegravir 2021-0 Yes [id number] 400mg Take 1 Univers (ISENTRESS) 3-28 tablet by ity of 400 mg 00:00: mouth 2 [place] tablet 00 (two) Medical times Branch daily. raltegravir 2021-0 Yes [id number] 400mg Take 1 Univers (ISENTRESS) 3-28 tablet by ity of 400 mg 00:00: mouth 2 [place] tablet 00 (two) Medical times Branch daily. raltegravir 2021-0 Yes [id number] 400mg Take 1 Univers (ISENTRESS) 3-28 tablet by ity of 400 mg 00:00: mouth 2 [place] tablet 00 (two) Medical times Branch daily. raltegravir 2022-0 Yes [id number] 400mg Take 1 Univers (ISENTRESS) 3-28 tablet by ity of 400 mg 00:00: mouth 2 [place] tablet 00 (two) Medical times Branch daily. raltegravir 2022-0 Yes [id number] 400mg Take 1 Univers (ISENTRESS) 3-28 tablet by ity of 400 mg 00:00: mouth 2 [place] tablet 00 (two) Medical times Branch daily. raltegravir 2022-0 Yes [id number] 400mg Take 1 Univers (ISENTRESS) 3-28 tablet by ity of 400 mg 00:00: mouth 2 [place] tablet 00 (two) Medical times Branch daily. raltegravir 2022-0 Yes [id number] 400mg Take 1 Univers (ISENTRESS) 3-28 tablet by ity of 400 mg 00:00: mouth 2 [place] tablet 00 (two) Medical times Branch daily. raltegravir 2-0 Yes [id number] 400mg Take 1 Univers (ISENTRESS) 3-28 tablet by ity of 400 mg 00:00: mouth 2 [place] tablet 00 (two) Medical times Branch daily. raltegravir 2-0 Yes [id number] 400mg Take 1 Univers (ISENTRESS) 3-28 tablet by ity of 400 mg 00:00: mouth 2 [place] tablet 00 (two) Medical times Branch daily. raltegravir 2022-0 Yes [id number] 400mg Take 1 Univers (ISENTRESS) 3-28 tablet by ity of 400 mg 00:00: mouth 2 [place] tablet 00 (two) Medical times Branch daily. raltegravir 2022-0 Yes [id number] 400mg Take 1 Univers (ISENTRESS) 3-28 tablet by ity of 400 mg 00:00: mouth 2 [place] tablet 00 (two) Medical times Branch daily. raltegravir 2022-0 Yes [id number] 400mg Take 1 Univers (ISENTRESS) 3-28 tablet by ity of 400 mg 00:00: mouth 2 [place] tablet 00 (two) Medical times Branch daily. raltegravir 2022-0 Yes [id number] 400mg Take 1 Univers (ISENTRESS) 3-28 tablet by ity of 400 mg 00:00: mouth 2 [place] tablet 00 (two) Medical times Branch daily. raltegravir Yes [id number] 400mg Take 1 Univers (ISENTRESS) 3-28 tablet by ity of 400 mg 00:00: mouth 2 [place] tablet 00 (two) Medical times Branch daily. raltegravir Yes [id number] 400mg Take 1 Univers (ISENTRESS) 3-28 tablet by ity of 400 mg 00:00: mouth 2 [place] tablet 00 (two) Medical times Branch daily. raltegravir 2022- No [id number] 400mg Take 1 Univers (ISENTRESS) 3-28 05-08 tablet by it y of 400 mg 00:00: 00:00 mouth 2 [place] tablet 00 :00 (two) Medical times Branch daily. LORazepam 1 2021- No [id number] 1mg Take 1 Univers mg tablet 3-10 [...] times a tablet day. emtricitabi 2021- No [id number] Take one [facility] ne-tenofovi 1-20 09-12 po daily ity of r alafen 00:00: 00:00 [place] (DESCOVY) 00 :00 Medical tablet Branch metoprolol Yes [id number] Take 1 [facility] tartrate 7-26 tablet Health (Lopressor) 00:00: (100 mg 100 MG 00 total) by tablet mouth 2 (two) times a day AND 0.5 tablets (50 mg total) every night. metoprolol Yes [id number] Take 1 [place] tartrate 7-26 tablet Health [...] (affected area in groin) hydrALAZINE Yes 50mg Q.41627206 Take 50 mg [facility] (APRESOLINE 7-19 [id number] by mouth 3 st ) 50 MG [...] area in groin) hydrALAZINE 0 Yes 50mg Q.05090138 Take 50 mg [facility] (APRESOLINE 7-19 [id number] by mouth 3 st ) 50 MG [...] area in groin) hydrALAZINE 0 Yes 50mg Q.49441448 Take 50 mg [facility] (APRESOLINE 7-19 5104402543 by mouth 3 st ) 50 MG [...] (affected area in groin) hydrALAZINE Yes 50mg Q.75474523 Take 50 mg [facility] (APRESOLINE 7-19 [id number] by mouth 3 st ) 50 MG [...] area in groin) hydrALAZINE 0 Yes 50mg Q.08751110 Take 50 mg [facility] (APRESOLINE 7-19 [id number] mouth 3 st ) 50 MG [...] area in groin) hydrALAZINE 0 Yes 50mg Q.03659445 Take 50 mg [facility] (APRESOLINE 7-19 0364609860 [address] mouth 3 st ) 50 MG [...] (affected area in groin) hydrALAZINE Yes 50mg Q.22782889 Take 50 mg [facility] (APRESOLINE 7-19 60987[address] mouth 3 st ) 50 MG [...] (affected area in groin) hydrALAZINE Yes 50mg Q.13007168 Take 50 mg [facility] (APRESOLINE 7-19 [address]17 [address] mouth 3 st ) 50 MG [...] area in groin) hydrALAZINE 0 Yes 50mg Q.65955162 Take 50 mg [facility] (APRESOLINE 7-19 [address]19222554 by mouth 3 st ) 50 MG [...] (affected area in groin) hydrALAZINE Yes 50mg Q.54657415 Take 50 mg [facility] (APRESOLINE 7-19 3657[address] by mouth 3 st ) 50 MG [...] (affected area in groin) hydrALAZINE Yes 50mg Q.29922952 Take 50 mg [facility] (APRESOLINE 7-19 1766677708 by mouth 3 st ) 50 MG [...] area in groin) hydrALAZINE 2020-0 Yes 50mg Q.72860617 Take 50 mg [facility] (APRESOLINE 7-19 [address]9212231 by mouth 3 st ) 50 MG [...] area in groin) hydrALAZINE 0 Yes 50mg Q.55992178 Take 50 mg [facility] (APRESOLINE 7-19 [address]27[address] by mouth 3 st ) 50 MG [...] (affected area in groin) hydrALAZINE Yes 50mg Q.86629017 Take 50 mg [facility] (APRESOLINE 7-19 1056[address] mouth 3 st ) 50 MG [...] area in groin) hydrALAZINE 0 Yes 50mg Q.55287509 Take 50 mg [facility] (APRESOLINE -19 9158581136 by mouth 3 st ) 50 MG [...] area in groin) hydrALAZINE 0 Yes 50mg Q.36757005 Take 50 mg [facility] (APRESOLINE 7-19 9444[address] by mouth 3 st ) 50 MG [...] area in groin) hydrALAZINE 0 Yes 50mg Q.91089191 Take 50 mg [facility] (APRESOLINE 7-19 [address]00[address]68 by mouth 3 st ) 50 MG [...] (affected area in groin) hydrALAZINE Yes 50mg Q.20877556 Take 50 mg [facility] (APRESOLINE 7-19 9587127458 by mouth 3 st ) 50 MG [...] area in groin) hydrALAZINE 0 Yes 50mg Q.46335901 Take 50 mg [facility] (APRESOLINE 7-[address] mouth 3 st ) 50 MG [...] (affected area in groin) hydrALAZINE Yes 50mg Q.22682369 Take 50 mg [facility] (APRESOLINE 7-19 [address]79357[address]64 by mouth 3 st ) 50 MG [...] (affected area in groin) hydrALAZINE Yes 50mg Q.92032546 Take 50 mg [facility] (APRESOLINE 7-[address]2839[address] by mouth 3 st ) 50 MG [...] area in groin) hydrALAZINE 0 Yes 50mg Q.08920918 Take 50 mg [facility] (APRESOLINE 7-[id number] mouth 3 st ) 50 MG [...] area in groin) hydrALAZINE 0 Yes 50mg Q.08025746 Take 50 mg [facility] (APRESOLINE 7-[address] mouth 3 st ) 50 MG [...] (affected area in groin) hydrALAZINE Yes 50mg Q.61559476 Take 50 mg [facility] (APRESOLINE 7-19 2689711[address] mouth 3 [address] ) 50 MG [...] (affected area in groin) hydrALAZINE Yes 50mg Q.87595238 Take 50 mg [facility] (APRESOLINE 7-19 19775[address]27 by mouth 3 st ) 50 MG [...] area in groin) hydrALAZINE 0 Yes 50mg Q.34446008 Take 50 mg [facility] (APRESOLINE 7-19 [address]15[address] mouth 3 [address] ) 50 MG [...] (affected area in groin) hydrALAZINE Yes 50mg Q.80948103 Take 50 mg [facility] (APRESOLINE 7-19 [address]2569[address]21 by mouth 3 [address] ) 50 MG [...] area in groin) hydrALAZINE 0 Yes 50mg Q.79738749 Take 50 mg [facility] (APRESOLINE 7-19 [address]12[address] mouth 3 [address] ) 50 MG [...] area in groin) hydrALAZINE 0 Yes 50mg Q.11145843 Take 50 mg [facility] (APRESOLINE 7-19 [address]50[address] mouth 3 [address] ) 50 MG [...] (affected area in groin) hydrALAZINE Yes 50mg Q.66738436 Take 50 mg [facility] (APRESOLINE 7-[address] 32938[address] mouth [address] ) 50 MG [...] (affected area in groin) hydrALAZINE Yes 50mg Q.58362749 Take 50 mg [facility] (APRESOLINE 7-19 [address]0627[address] by mouth 3 st ) 50 MG [...] area in groin) hydrALAZINE 0 Yes 50mg Q.18902893 Take 50 mg [facility] (APRESOLINE 7-19 [id number] mouth 3 st ) 50 MG [...] area in groin) hydrALAZINE 0 Yes 50mg Q.68223737 Take 50 mg [facility] (APRESOLINE 7-19 [address] mouth [address] ) 50 MG [...] (affected area in groin) hydrALAZINE Yes 50mg Q.27109725 Take 50 mg [facility] (APRESOLINE 7-19 [address] mouth 3 st ) 50 MG [...] area in groin) hydrALAZINE 2020-0 Yes 50mg Q.00895018 Take 50 mg [facility] (APRESOLINE 7-19 1678[address] mouth 3 [address] ) 50 MG [...] area in groin) hydrALAZINE 2020-0 Yes 50mg Q.18282240 Take 50 mg [facility] (APRESOLINE 7-19 [address]32 [address] mouth 3 st ) 50 MG [...] (affected area in groin) hydrALAZINE Yes 50mg Q.80707392 Take 50 mg [facility] (APRESOLINE 7-[id number] mouth [address] ) 50 MG [...] area in groin) hydrALAZINE 0 Yes 50mg Q.50875169 Take 50 mg [facility] (APRESOLINE 7-[address]45[address] mouth 3 [address] ) 50 MG [...] area in groin) hydrALAZINE 2020-0 Yes 50mg Q.08985051 Take 50 mg [facility] (APRESOLINE 7-[address] mouth [address] ) 50 MG [...] area in groin) hydrALAZINE 0 Yes 50mg Q.76322775 Take 50 mg [facility] (APRESOLINE 7-[address] mouth [address] ) 50 MG [...] [facility] tablet 25 daily. l clobetasol Yes Q.5D Apply 1 Meth jason (TEMOVATE) 12-[address] 0.05 % 10:51: n [facility] ointment 25 topically l 2 (two) times a day. (affected area in groin) hydrALAZINE Yes 50mg Q.35209757 Take 50 mg [facility] (APRESOLINE - [id number] by mouth 3 st ) 50 MG [...] area in groin) hydrALAZINE 0 Yes 50mg Q.[id number] Take 50 mg [facility] (APRESOLINE 7-19 3626527[address] mouth 3 [address] ) 50 MG [...] (affected area in groin) hydrALAZINE Yes 50mg Q.09049867 Take 50 mg [facility] (APRESOLINE 7-19 [address]242998[address] mouth 3 [address] ) 50 MG [...] (affected area in groin) hydrALAZINE Yes 50mg Q.[id number] Take 50 mg [facility] (APRESOLINE 7-[address] mouth 3 [address] ) 50 MG [...] area in groin) hydrALAZINE 0 Yes 50mg Q.[id number] Take 50 mg [facility] (APRESOLINE 7-[id number] mouth 3 [address] ) 50 MG [...] area in groin) hydrALAZINE 0 Yes 50mg Q.[id number] Take 50 mg [facility] (APRESOLINE 7-[address] mouth [address] ) 50 MG [...] (affected area in groin) hydrALAZINE Yes 50mg Q.[id number] Take 50 mg [facility] (APRESOLINE 7-[address] mouth [address] ) 50 MG [...] area in groin) hydrALAZINE 0 Yes 50mg Q.[id number] Take 50 mg [facility] (APRESOLINE 7-[address] mouth 3 [address] ) 50 MG [...] area in groin) hydrALAZINE 0 Yes 50mg Q.[id number] Take 50 mg [facility] (APRESOLINE 7-[address] mouth [address] ) 50 MG [...] (affected area in groin) hydrALAZINE Yes 50mg Q.[id number] Take 50 mg [facility] (APRESOLINE 7-[address] mouth 3 [address] ) 50 MG [...] [facility] tablet 25 l nystatin-tr 2020-0 Yes [id number] Apply to [facility] iamcinolone 7-06 area(s) 3 ity of cream 00:00: (three) [place] 00 times Medical daily. Branch nystatin-tr 2021-0 Yes [id number] Apply to [facility] iamcinolone 7-06 area(s) 3 ity of cream 00:00: (three) [place] 00 times Medical daily. Branch nystatin-tr 2021-0 Yes [id number] Apply to [facility] iamcinolone 7-06 area(s) 3 ity of cream 00:00: (three) [place] 00 times Medical daily. Branch nystatin-tr 2021-0 Yes [id number] Apply to [facility] iamcinolone 7-06 area(s) 3 ity of cream 00:00: (three) [place] 00 times Medical daily. Branch nystatin-tr 2021-0 Yes [id number] Apply to [facility] iamcinolone 7-06 area(s) 3 ity of cream 00:00: (three) [place] 00 times Medical daily. Branch nystatin-tr 2021-0 Yes [id number] Apply to [facility] iamcinolone 7-06 area(s) 3 ity of cream 00:00: (three) [place] 00 times Medical daily. Branch nystatin-tr 2021-0 Yes [id number] Apply to [facility] iamcinolone 7-06 area(s) 3 ity of cream 00:00: (three) [place] 00 times Medical daily. Branch nystatin-tr 2021-0 Yes [id number] Apply to [facility] iamcinolone 7-06 area(s) 3 ity of cream 00:00: (three) [place] 00 times Medical daily. Branch nystatin-tr 2021-0 Yes [id number] Apply to [facility] iamcinolone 7-06 area(s) 3 ity of cream 00:00: (three) [place] 00 times Medical daily. Branch nystatin-tr 2021-0 Yes [id number] Apply to [facility] iamcinolone 7-06 area(s) 3 ity of cream 00:00: (three) [place] 00 times Medical daily. Branch nystatin-tr 2021-0 Yes [id number] Apply to [facility] iamcinolone 7-06 area(s) 3 ity of cream 00:00: (three) [place] 00 times Medical daily. Branch nystatin-tr 2021-0 Yes [id number] Apply to [facility] iamcinolone 7-06 area(s) 3 ity of cream 00:00: (three) [place] 00 times Medical daily. Branch nystatin-tr 2021-0 Yes [id number] Apply to [facility] iamcinolone 7-06 area(s) 3 ity of cream 00:00: (three) [place] 00 times Medical daily. Branch nystatin-tr 2021-0 Yes [id number] Apply to [facility] iamcinolone 7-06 area(s) 3 ity of cream 00:00: (three) [place] 00 times Medical daily. Branch nystatin-tr 2021-0 Yes [id number] Apply to [facility] iamcinolone 7-06 area(s) 3 ity of cream 00:00: (three) [place] 00 times Medical daily. Branch nystatin-tr 2021-0 Yes [id number] Apply to [facility] iamcinolone 7-06 area(s) 3 ity of cream 00:00: (three) [place] 00 times Medical daily. Branch nystatin-tr 2021-0 Yes [id number] Apply to [facility] iamcinolone 7-06 area(s) 3 ity of cream 00:00: (three) [place] 00 times Medical daily. Branch nystatin-tr 2021-0 Yes [id number] Apply to [facility] iamcinolone 7-06 area(s) 3 ity of cream 00:00: (three) [place] 00 times Medical daily. Branch nystatin-tr 2021-0 Yes [id number] Apply to [facility] iainolone 7 area(s) 3 ity of cream 00:00: (three) [place] 00 times Medical daily. Branch nystatin-tr 2020-0 Yes [id number] Apply to [facility] iainolone 7 area(s) 3 ity of cream 00:00: (three) [place] 00 times Medical daily. Branch nystatin-tr 2020-0 Yes [id number] [facility] of cream 00:00: (three) [place] 00 times Medical daily. Branch budesonide- 2021- No 1{puff} QD Inhale 1 [facility] formoteroL 6-25 06-[address] (SYMBICORT) 14:37: 00:00 morning. H ospita 160-4.5 02 :00 l mcg/actuati on inhaler hydrALAZINE Yes [id number] 50mg Q.[id number] Take 1 [place] (Apresoline 6-11 [id number] tablet (50 Health ) 50 MG 00:00: 3D mg total) tablet 00 by mouth 3 (three) times a day. hydrALAZINE Yes [id number] 50mg Q.[id number] Take 1 [place] (Apresoline 6-11 [id number] tablet (50 Health ) 50 MG 00:00: [...] % 00:00: ointment 00 nystatin 2020- No [id number] Q.25D Take 5 mL [facility] (MYCOSTATIN 10-06- [...] 4-10 (Same as: l 14:00: Zoloft) [place] pantoprazol No Notes: Caesar lisa e 4-10 Tablet l 14:00: should not [place] 00 be chewed or crushed. (Same as: Protonix) Amiodarone No Notes: Memor ia 4-10 (Same as: l 14:00: Cordarone) [place] Amlodipine No Notes: [facility] ia 4-10 (Same as: l 14:00: Norvasc) [place] emtricitabi No Notes: [place] lisa ne 200 [...] 4-10 Tablet l 14:00: should not [place] 00 be chewed or crushed. (Same as: Protonix) Amiodarone No Notes: Memor ia 4-10 (Same as: l 14:00: Cordarone) [place] Amlodipine No Notes: Memor ia 4-10 (Same as: l 14:00: Norvasc) Maryt emtricitabi No Notes: Caesar lisa ne 200 MG / 4-10 (Same as: l tenofovir 14:00: Descovy) Herm ariel alafenamide 00 Non-formul 25 MG Oral nancy Tablet [Descovy] Sertraline No Notes: Memor ia 4-10 (Same as: l 14:00: Zoloft) [place] pantoprazol No Notes: [place] lisa e 4-10 [...] 4-10 (Same as: l 14:00: Zoloft) [place] pantoprazol No Notes: [place] lisa e 4-10 Tablet l 14:00: should not [place] 00 be chewed or crushed. (Same as: Protonix) Amiodarone No Notes: Memor ia 4-10 (Same as: l 14:00: Cordarone) [place] 00 Amlodipine No Notes: Memor ia 4-10 (Same as: l 14:00: Norvasc) [place] emtricitabi No Notes: Caesar lisa ne 200 MG / 4-10 (Same as: l tenofovir 14:00: Descovy) Herm ariel alafenamide 00 Non-formul 25 MG Oral nancy Tablet [Descovy] Sertraline No Notes: Mem[facility] ia 4-10 (Same as: l 14:00: Zoloft) [place] 00 pantoprazol No Notes: [place] lisa e 4-10 Tablet l 14:00: should not [place] 00 be chewed or crushed. (Same as: Protonix) Amiodarone No Notes: Memor ia 4-10 (Same as: l 14:00: Cordarone) [place] 00 Sucralfate No Notes: May M emoria 4-10 interfere l 02:00: w/enteral [place] 00 feeds - Take 1 hr before or 2 hr after antacids, dairy pdt, meals & minerals - On empty stomach. For patients unable to swallow tablet, dissolve in 10mL - 30mL of water or juice and stir before giving. (Same As: Carafate) Saline No Notes: [facility] Flush 0.9% 4-10 (Same as: l 02:00: BD [place] Posiflush) Eliquis No Notes: [facility]oria 4-10 Same as: l 02:00: Eliquis Hydralazine No Notes: Caesar lisa Hydrochlori 4-10 (Same as: l de 50 MG 02:00: Apresoline Her mitchell Oral Tablet 00 ) May interfere w/enteral feedings Take With Food Sucralfate No Notes: May M emoria 4-10 interfere l 02:00: w/enteral [place] 00 feeds - Take 1 hr before [...] emoria 4-10 interfere l 02:00: w/enteral [place] 00 feeds - Take 1 hr before or 2 hr after antacids, dairy pdt, meals & minerals - On empty stomach. For patients unable to swallow tablet, dissolve in 10mL - 30mL of water or juice and stir before giving. (Same As: Carafate) Saline No Notes: [facility] Flush 0.9% 4-10 (Same as: l 02:00: BD [place] Posiflush) Eliquis No Notes: Memoria 4-10 Same as: l 02:00: Eliquis [place] Hydralazine No Notes: Caesar lisa Hydrochlori 4-10 [...] 4-10 (Same as: l 02:00: BD [place] Posiflush) Eliquis No Notes: [facility] 4-10 Same as: l 02:00: Eliquis [place] Hydralazine No Notes: Caesar lisa Hydrochlori 4-10 [...] 4-10 Same as: l 02:00: Eliquis [place] 00 Hydralazine No Notes: Caesar lisa Hydrochlori [...] 4-10 (Same as: l 02:00: BD [place] Posiflush) Eliquis No Notes: Memoria 4-10 Same as: l 02:00: Eliquis [place] Hydralazine No Notes: Caesar lisa Hydrochlori 4-10 [...] exceed l #3 00:12: 4gm/day of [place] acetaminop hen. (Same as: Tylenol with Codeine # 3) acetaminoph No Notes: Do M emoria en-codeine 4-10 not exceed l #3 00:12: 4gm/day of [place] acetaminop hen. (Same as: Tylenol with Codeine # 3) acetaminoph No Notes: Do M emoria en-codeine 4-10 not exceed l #3 00:12: 4gm/day of [place] acetaminop hen. (Same as: Tylenol with Codeine # 3) acetaminoph No Notes: Do M emoria en-codeine 4-10 not exceed l #3 00:12: 4gm/day of [place] acetaminop hen. (Same as: Tylenol with Codeine # 3) acetaminoph No Notes: Do M emoria en-codeine 4-10 not exceed l #3 00:12: 4gm/day of [place] acetaminop hen. (Same as: Tylenol with Codeine [...] 4-09 tab, l 22:00: Route: PO, [place] 00 Drug form: TAB, BID, Dosing Weight [...] 4-09 tab, l 22:00: Route: PO, [place] 00 Drug form: TAB, BID, Dosing Weight [...] oria 4- tab, l 22:00: Route: PO, [place] Drug form: TAB, BID, Dosing Weight 97.273, [...] [facility] form: TAB, BID, Dosing Weight 97.273, [...] 4-09 tab, l 22:00: Route: PO, [place] 00 Drug form: TAB, BID, Dosing Weight [...] 4-09 tab, l 22:00: Route: PO, [place] 00 Drug form: TAB, BID, Dosing Weight 97.273, kg, Start date: 08/29/20 17:00:00 CDT, Duration: 30 day, Stop date: 09/28/20 9:00:00 CDT metoprolol 1-0 No 100 mg, 1 Me moria tartrate 4-09 tab, l 22:00: Route: PO, [place] 00 Drug form: TAB, BID, Dosing Weight [...] 4-09 tab, l 22:00: Route: PO, [place] 00 Drug form: TAB, BID, Dosing Weight 97.273, kg, Start date: 08/29/20 17:00:00 CDT, Duration: 30 day, Stop date: 09/28/20 9:00:00 CDT metoprolol 2021-0 No 100 mg, 1 Me moria tartrate 4-09 tab, l 22:00: Route: PO, [place] 00 Drug form: TAB, BID, Dosing Weight [...] 4-09 tab, l 22:00: Route: PO, [place] 00 Drug form: TAB, BID, Dosing Weight [...] Memoria 4-09 (Same l 17:07: as:MORPhin [place] 00 e Sulfate) Morphine No Notes: Memoria 4-09 (Same l 17:07: as:MORPhin [place] 00 e Sulfate) Morphine No Notes: Memoria 4- (Same l 17:07: as:MORPhin [place] 00 e Sulfate) Morphine No Notes: [facility] 4-09 (Same l 17:07: as:MORPhin [place] 00 e Sulfate) Morphine No Notes: [facility] 4-09 (Same l 17:07: as:MORPhin [place] 00 e Sulfate) Morphine No Notes: Memoria [...] 30 tab, 0 coated Refill(s), tablet Pharmacy: [facility] 149, 162.56, cm, 08/29/20 5:30:00 CDT, Height, 97.273, kg, 08/29/20 5:30:00 CDT, Weight pantoprazol 0 Yes 40 mg = 1 M emoria e 40 mg 4-09 tab, PO, l oral 15:27: Daily, # [place] enteric 00 30 tab, 0 coated Refill(s), tablet Pharmacy: [facility] 149, 162.56, cm, 08/29/20 5:30:00 CDT, Height, 97.273, kg, 08/29/20 5:30:00 CDT, Weight pantoprazol 2020-0 Yes 40 mg = 1 M emoria e 40 mg 4-09 tab, PO, l oral 15:27: Daily, # [place] enteric 00 30 tab, 0 coated Refill(s), tablet Pharmacy: [facility] 149, 162.56, cm, 08/29/20 5:30:00 CDT, Height, 97.273, kg, 08/29/20 5:30:00 CDT, Weight pantoprazol 2021-0 Yes 40 mg = 1 M emoria e 40 mg 4-09 tab, PO, l oral 15:27: Daily, # [place] enteric 00 30 tab, 0 coated Refill(s), tablet [facility], 162.56, cm, 08/29/20 5:30:00 CDT, Height, 97.273, kg, 08/29/20 5:30:00 CDT, Weight pantoprazol 2021-0 Yes 40 mg = 1 M emoria e 40 mg 4-09 tab, PO, l oral 15:27: Daily, # [place] enteric 00 30 tab, 0 coated Refill(s), tablet [facility], 162.56, cm, 08/29/20 5:30:00 CDT, Height, 97.273, kg, 08/29/20 5:30:00 CDT, Weight pantoprazol 2021-0 Yes 40 mg = 1 M emoria e 40 mg 4-09 tab, PO, l oral 15:27: Daily, # [place] enteric 00 30 tab, 0 coated Refill(s), tablet [facility], 162.56, cm, 08/29/20 5:30:00 CDT, Height, 97.273, kg, 08/29/20 5:30:00 CDT, Weight pantoprazol 2021-0 Yes 40 mg = 1 M emoria e 40 mg 4-09 tab, PO, l oral 15:27: Daily, # [place] enteric 00 30 tab, 0 coated Refill(s), tablet [facility], 162.56, cm, 08/29/20 5:30:00 CDT, Height, 97.273, kg, 08/29/20 5:30:00 CDT, Weight pantoprazol 2021-0 No 40 mg = 1 M emoria e 40 mg 4-09 tab, PO, l oral 15:26: Daily, # [place] enteric 00 30 tab, 0 coated Refill(s) tablet sucralfate 2020-0 Yes 1 gm = 1 Mem oria 1 g oral 4-09 tab, PO, l tablet 15:26: Q12H, # 28 Skylar nn 00 tab, 0 Refill(s), Pharmacy: [facility] 149, 162.56, cm, 08/29/20 5:30:00 CDT, [...] Skyl[place] nn 00 tab, 0 Refill(s), Pharmacy: [facility] 149, 162.56, cm, 08/29/20 5:30:00 CDT, Height, 97.273, kg, 08/29/20 5:30:00 CDT, Weight pantoprazol 2020-0 No 40 mg = 1 M emoria e 40 mg 4-09 tab, PO, l oral 15:26: Daily, # [place] enteric 00 30 tab, 0 coated Refill(s) tablet sucralfate 2020-0 Yes 1 gm = 1 Mem oria 1 g oral 4-09 tab, PO, l tablet 15:26: Q12H, # 28 Skylar nn 00 tab, 0 Refill(s), Pharmacy: [facility] 149, 162.56, cm, 08/29/20 5:30:00 CDT, [...] Skylar nn 00 tab, 0 Refill(s), Pharmacy: [facility] 149, 162.56, cm, 08/29/20 5:30:00 CDT, [...] [place]yl[place] nn 00 tab, 0 Refill(s), Pharmacy: [facility] 149, 162.56, cm, 08/29/20 5:30:00 CDT, [...] [place]ylar nn 00 tab, 0 Refill(s), Pharmacy: [facility] 149, 162.56, cm, 08/29/20 5:30:00 CDT, Height, 97.273, kg, 08/29/20 5:30:00 CDT, Weight pantoprazol 2020-0 No 40 mg = 1 M emoria e 40 mg 4-09 tab, PO, l oral 15:26: Daily, # [place] enteric 00 30 tab, 0 coated Refill(s) tablet sucralfate 2020-0 Yes 1 gm = 1 Mem oria 1 g oral 4-09 tab, PO, l tablet 15:26: Q12H, # 28 Skylar nn 00 tab, 0 Refill(s), Pharmacy: [facility] 149, 162.56, cm, 08/29/20 5:30:00 CDT, Height, 97.273, kg, 08/29/20 5:30:00 CDT, Weight Saline No Notes: Memoria Flush 0.9% 4-09 (Same as: l 15:25: BD [place] 00 Posiflush) Lorazepam No Notes: Memori a 4-09 (Same as: l 15:25: Ativan) [place] Saline No Notes: Mem[facility] Flush 0.9% 4-09 (Same as: l 15:25: BD [place] 00 Posiflush) Lorazepam No Notes: Memori a 4-09 (Same as: l 15:25: Ativan) [place] 00 Saline No Notes: Memoria Flush 0.9% 4-09 (Same as: l 15:25: BD [place] 00 Posiflush) Saline No Notes: Memoria Flush 0.9% 4-09 (Same as: l 15:25: BD [place] 00 Posiflush) Lorazepam No Notes: Memori a 4-09 (Same as: l 15:25: Ativan) [place] 00 Lorazepam No Notes: Memori a 4-09 (Same as: l 15:25: Ativan) [place] Saline No Notes: Memoria Flush 0.9% 4-09 (Same as: l 15:25: BD [place] 00 Posiflush) Lorazepam No Notes: Memori a 4-09 (Same as: l 15:25: Ativan) [place] 00 Saline No Notes: Memoria Flush 0.9% 4-09 (Same as: l 15:25: BD [place] 00 Posiflush) Lorazepam No Notes: Memori a 4-09 (Same as: l 15:25: Ativan) [place] 00 Saline No Notes: Memoria Flush 0.9% 4-09 (Same as: l 15:25: BD [place] 00 Posiflush) Lorazepam No Notes: Memori a 4-09 (Same as: l 15:25: Ativan) Isuprel HCl No Route: IV, Memoria (ANES) 0.2 4-09 Drug form: l mg + 15:00: INJ, [place] Dosing Weight 97.3, kg, Start date: 08/29/20 10:00:00 CDT, Stop date: 08/29/20 11:00:00 CDT Isuprel HCl 2020-0 No Route: IV, Memoria (ANES) 0.2 08-29 Drug form: l mg + 15:00: INJ, [place] Dosing Weight 97.3, kg, Start date: 08/29/20 10:00:00 CDT, Stop date: 08/29/20 11:00:00 CDT Isuprel HCl 2020-0 No Route: IV, Memoria (ANES) 0.2 08-29 Drug form: l mg + 15:00: INJ, [place] Dosing Weight 97.3, kg, Start date: 08/29/20 10:00:00 CDT, Stop date: 08/29/20 11:00:00 CDT Isuprel HCl 2020-0 No Route: IV, Memoria (ANES) 0.2 08-29 Drug form: l mg + 15:00: INJ, [place] Dosing Weight 97.3, kg, Start date: 08/29/20 10:00:00 CDT, Stop date: 08/29/20 11:00:00 CDT Isuprel HCl 2020-0 No Route: IV, Memoria (ANES) 0.2 08-29 Drug form: l mg + 15:00: INJ, [place] Dosing Weight 97.3, kg, Start date: 08/29/20 10:00:00 CDT, Stop date: 08/29/20 11:00:00 CDT Isuprel HCl 2020-0 No Route: IV, Memoria (ANES) 0.2 08-29 Drug form: l mg + 15:00: INJ, [place] Dosing Weight 97.3, kg, Start date: 08/29/20 10:00:00 CDT, Stop date: 08/29/20 11:00:00 CDT Isuprel HCl 2020-0 No Route: IV, Memoria (ANES) 0.2 08-29 Drug form: l mg + 15:00: INJ, [place] Dosing Weight 97.3, kg, Start date: 08/29/20 [...] ONCE, [place] Stop date: 08/29/20 9:18:00 CDT Labetalol 2020-0 No 10 mg, Memori a 08-29 Route: l 14:01: IVP, [place] 00 Q5Min, Dosing Weight 97.273, kg, PRN Elevated BP, Start date: 08/29/20 9:01:00 CDT, Duration: 5 doses or times, Stop date: Limited # of times Acetaminoph 2020-0 No 1,000 mg, M emoria en 08-29 Route: PO, l 14:01: Drug form: [place] 00 TAB, ONCE, Dosing Weight 97.273, kg, [...] 08-29 Route: l 14:01: IVP, PRN, [place] 00 Dosing Weight 97.273, kg, PRN Benzodiaze pine Reversal, Initial dose, Start date: 08/29/20 9:01:00 CDT, Duration: 30 day, Stop date: 09/28/20 9:00:00 CDT Naloxone 2021-0 No 0.4 mg, Memori a 08-29 Route: l 14:01: IVP, [place] 00 Q2MIN, Dosing Weight 97.273, kg, PRN Narcotic Reversal, Start date: 08/29/20 9:01:00 CDT, Duration: 8 doses or times, Stop date: Limited # of times Ondansetron 1-0 No 4 mg, Memor ia 08-29 Route: l 14:01: IVP, ONCE, [place] 00 Dosing Weight 97.273, kg, PRN Nausea & Vomiting, Start date: 08/29/20 9:01:00 CDT Labetalol 1-0 No 10 mg, Memori a 08-29 Route: l 14:01: IVP, [place] 00 Q5Min, Dosing Weight 97.273, kg, PRN [...] ne 08-29 Route: l 14:01: IVP, [place] 00 Q5Min, Dosing Weight 97.273, kg, PRN Pain Score 7-10, Start date: 08/29/20 9:01:00 CDT, Duration: 4 doses or times, Stop date: Limited # of times Flumazenil 1-0 No 0.2 mg, Caesar lisa 08-29 Route: l 14:01: IVP, PRN, [place] 00 Dosing Weight 97.273, kg, PRN Benzodiaze pine Reversal, Initial dose, Start date: 08/29/20 9:01:00 CDT, Duration: 30 day, Stop date: 09/28/20 9:00:00 CDT Naloxone 1-0 No 0.4 mg, Memori a 08-29 Route: l 14:01: IVP, [place] 00 Q2MIN, Dosing Weight 97.273, kg, PRN Narcotic Reversal, Start date: 08/29/20 9:01:00 CDT, Duration: 8 doses or times, Stop date: Limited # of times Ondansetron 1-0 No 4 mg, Memor ia 08-29 Route: l 14:01: IVP, ONCE, [place] 00 Dosing Weight 97.273, kg, PRN Nausea & Vomiting, Start date: 08/29/20 9:01:00 CDT Labetalol 1-0 No 10 mg, Memori a 08-29 Route: l 14:01: IVP, [place] 00 Q5Min, Dosing Weight 97.273, kg, PRN [...] 08-29 Route: l 14:01: IVP, PRN, [place] 00 Dosing Weight 97.273, kg, PRN Benzodiaze [...] ne 08-29 Route: l 14:01: IVP, [place] 00 Q5Min, Dosing Weight 97.273, kg, PRN Pain Score 7-10, Start date: 08/29/20 9:01:00 CDT, Duration: 4 doses or times, Stop date: Limited # of times Labetalol 2021-0 No 10 mg, Memori a 08-29 Route: l 14:01: IVP, [place] 00 Q5Min, Dosing Weight 97.273, kg, PRN [...] 08-29 Route: l 14:01: IVP, PRN, [place] 00 Dosing Weight 97.273, kg, PRN Benzodiaze [...] 08-29 Route: l 14:01: IVP, PRN, [place] Dosing Weight 97.273, kg, PRN Benzodiaze pine Reversal, Initial dose, Start date: 08/29/20 9:01:00 CDT, Duration: 30 day, Stop date: 09/28/20 9:00:00 CDT Ondansetron 2021-0 No 4 mg, Memor ia 08-29 Route: l 14:01: IVP, ONCE, [place] 00 Dosing Weight 97.273, kg, PRN Nausea & Vomiting, Start date: 08/29/20 9:01:00 CDT Naloxone 2021-0 No 0.4 mg, Memori a 08-29 Route: l 14:01: IVP, [place] 00 Q2MIN, Dosing Weight 97.273, kg, PRN [...] 08-29 Route: l 14:01: IVP, PRN, [place] 00 Dosing Weight 97.273, kg, PRN Benzodiaze pine Reversal, Initial dose, Start date: 08/29/20 9:01:00 CDT, Duration: 30 day, Stop date: 09/28/20 9:00:00 CDT Naloxone 1-0 No 0.4 mg, Memori a 08-29 Route: l 14:01: IVP, [place] 00 Q2MIN, Dosing Weight 97.273, kg, PRN [...] ne 08-29 Route: l 14:01: IVP, [place] 00 Q5Min, Dosing Weight 97.273, kg, PRN Pain Score 7-10, Start date: 08/29/20 9:01:00 CDT, Duration: 4 doses or times, Stop date: Limited # of times Flumazenil 2020-0 No 0.2 mg, Caesar lisa 08-29 Route: l 14:01: IVP, PRN, [place] 00 Dosing Weight 97.273, kg, PRN Benzodiaze [...] form: l 10 13:15: INJ, Start [place] microgram date: 08/29/20 8:15:00 CDT, Stop date: [...] form: l 10 13:15: INJ, Start [place] microgram 00 date: 08/29/20 8:15:00 CDT, Stop date: 08/29/20 9:15:00 CDT norepinephr 2020-0 No Route: IV, Memoria ine (ANES) 08-29 Drug form: l 10 13:15: INJ, Start [place] microgram date: 08/29/20 8:15:00 CDT, Stop date: 08/29/20 9:15:00 CDT norepinephr 2020-0 No Route: IV, [facility] ine (ANES) 08-29 Drug form: l 10 13:15: INJ, Start [place] microgram 00 date: 08/29/20 8:15:00 CDT, Stop date: 08/29/20 9:15:00 CDT Sodium 2020-0 No Route: IV, [facility] Chloride 4-09 Total l 0.9% IV 12:30: Volume: [place] (ANES) 1000 00 1,000, mL Start date: 08/29/20 7:30:00 CDT, Stop date: 08/29/20 8:30:00 CDT Sodium 2020-0 No Route: IV, [facility] Chloride 4-09 Total l 0.9% IV 12:30: Volume: [place] (ANES) 1000 00 1,000, mL Start date: 08/29/20 7:30:00 CDT, Stop date: 08/29/20 8:30:00 CDT Sodium 2020-0 No Route: IV, [facility] Chloride 4-09 Total l 0.9% IV 12:30: Volume: [place] (ANES) 1000 00 1,000, mL Start date: [...] Total l 0.9% IV 12:30: Volume: [place] (ANES) 1000 00 1,000, mL Start date: [...] l Hydrochlori 11:42: Q24H, # 30 [place] de 150 MG 00 tab, 0 Extended Refill(s) Release Tablet 24 HR Yes 150 mg = 1 Memori a Bupropion 4-09 tab, PO, l Hydrochlori 11:42: Q24H, # 30 [place] de 150 MG 00 tab, 0 Extended Refill(s) Release Tablet 24 HR Yes 150 mg = 1 [facility] Bupropion 4-09 tab, PO, l Hydrochlori 11:42: Q24H, # 30 [place] de 150 MG 00 tab, 0 Extended Refill(s) Release Tablet 24 HR Yes 150 mg = 1 [facility] Bupropion 4-09 tab, PO, l Hydrochlori 11:42: Q24H, # 30 [place] de 150 MG 00 tab, 0 Extended [...] Q12H, tab, l Tablet 11:41: 0 [place] [Eliquis] 00 Refill(s), For Atrial Fibrilatio n apixaban 5 2020-0 Yes 5 mg, PO, Me moria MG Oral 08-29 Q12H, tab, l Tablet 11:41: 0 [place] [Eliquis] 00 Refill(s), For Atrial Fibrilatio n apixaban 5 2020-0 Yes 5 mg, PO, Me moria MG Oral 08-29 Q12H, tab, l Tablet 11:41: 0 [place] [Eliquis] 00 Refill(s), For Atrial Fibrilatio n apixaban 5 2020-0 Yes 5 mg, PO, Me moria MG Oral 08-29 Q12H, tab, l Tablet 11:41: 0 [place] [Eliquis] 00 Refill(s), For Atrial Fibrilatio n apixaban 5 2020-0 Yes 5 mg, PO, Me moria MG Oral 08-29 Q12H, tab, l Tablet 11:41: 0 [place] [Eliquis] 00 Refill(s), For Atrial Fibrilatio n [...] PO, l tablet 11:38: Daily, # [place] 00 90 tab, 3 Refill(s) AMIODarone 2020-0 Yes 200 mg = 1 M emoria 200 mg oral 4-09 tab, PO, l tablet 11:38: Daily, # [place] 00 90 tab, 3 Refill(s) AMIODarone 2020-0 Yes 200 mg = 1 M emoria 200 mg oral 4-09 tab, PO, l tablet 11:38: Daily, # [place] 00 90 tab, 3 Refill(s) AMIODarone 2020-0 Yes 200 mg = 1 M emoria 200 mg oral 4-09 tab, PO, l tablet 11:38: Daily, # [place] 00 90 tab, 3 Refill(s) AMIODarone 2020-0 [...] PO, l tablet 11:38: Daily, # [place] 00 90 tab, 3 Refill(s) normal 0 [...] 09/28/20 5:29:00 CDT, 2.13, m2, 0 pantoprazol 2021-0 2021- No Metho di e 08-29 st (PROTONIX) [...] [place]-Tenofovi 1-21 200 mg-25 [facility] r AF 00:00: mg tablet (Descovy) 00 200-25 MG tablet Emtricitabi 2018-05 Yes [place]-Tenof[place] 1-21 200 mg-25 [facility] r AF 00:00: mg tablet (Descovy) [...] Ordered Filled Immunization Date Status Comments [facility] e Immunization Name Name SARS-COV-2 COVID-19 2022-03-05 [...] [place] 65[place] PFIZER COVID-19 2020-07-23 Completed Muslim MRNA VACCINATION 00:00:00 [facility] PFIZER COVID-19 2020-07-23 Completed Muslim MRNA VACCINATION 00:00:00 [facility] PFIZER COVID-19 2020-07-23 Completed Muslim MRNA VACCINATION 00:00:00 [facility] PFIZER COVID-19 2020-07-23 Completed Muslim MRNA VACCINATION 00:00:00 [facility] PFIZER COVID-19 2020-07-23 Completed Muslim MRNA VACCINATION 00:00:00 [facility] PFIZER COVID-19 2020-07-23 Completed Muslim MRNA VACCINATION 00:00:00 [facility] PFIZER COVID-19 2020-07-23 Completed Muslim MRNA VACCINATION 00:00:00 [facility] PFIZER COVID-19 2020-07-23 Completed Muslim MRNA VACCINATION 00:00:00 [facility] PFIZER COVID-19 2020-07-23 Completed Muslim MRNA VACCINATION 00:00:00 [facility] PFIZER COVID-19 2020-07-23 Completed Muslim MRNA VACCINATION 00:00:00 [facility] PFIZER COVID-19 2020-07-23 Completed Muslim MRNA VACCINATION 00:00:00 [facility] PFIZER COVID-19 2020-07-23 Completed Muslim MRNA VACCINATION 00:00:00 [facility] PFIZER COVID-19 2020-07-23 Completed Muslim MRNA VACCINATION 00:00:00 [facility] PEG COVID-19 2020-07-23 Completed Muslim MRNA VACCINATION 00:00:00 [facility] PEG COVID-19 2020-07-23 Completed Muslim MRNA VACCINATION 00:00:00 [facility] PEG COVID-19 2020-07-23 Completed Muslim MRNA VACCINATION 00:00:00 [facility] PEG COVID-19 2020-07-23 Completed Muslim MRNA VACCINATION 00:00:00 [facility] PEG COVID-19 2020-07-23 Completed Muslim MRNA VACCINATION 00:00:00 [facility] PEG COVID-19 2020-07-23 Completed Muslim MRNA VACCINATION 00:00:00 [facility] PEG COVID-19 2020-07-23 Completed Muslim MRNA VACCINATION 00:00:00 [facility] PEG COVID-19 2020-07-23 Completed Muslim MRNA VACCINATION 00:00:00 [facility] PEG FELIZID-19 2020-07-23 Completed Muslim MRNA VACCINATION 00:00:00 [facility] PEG COVID-19 2020-07-23 Completed Muslim MRNA VACCINATION 00:00:00 [facility] PEG COVID-19 2020-07-23 Completed Muslim MRNA VACCINATION 00:00:00 [facility] PEG COVID-19 2020-07-23 Completed Muslim MRNA VACCINATION 00:00:00 [facility] PEG COVID-19 2020-07-23 Completed Muslim MRNA VACCINATION 00:00:00 [facility] PEG COVID-19 2020-07-23 Completed Muslim MRNA VACCINATION 00:00:00 [facility] PEG COVID-19 2020-07-23 Completed Muslim MRNA VACCINATION 00:00:00 [facility] PEG COVID-19 2020-07-23 Completed Muslim MRNA VACCINATION 00:00:00 [facility] PEG COVID-19 2020-07-23 Completed Muslim MRNA VACCINATION 00:00:00 [facility] PEG COVID-19 2020-07-23 Completed Muslim MRNA VACCINATION 00:00:00 [facility] PFIZER COVID-19 2020-07-23 Completed Muslim MRNA VACCINATION 00:00:00 [facility] PEG COVID-19 2020-07-23 Completed Muslim MRNA VACCINATION 00:00:00 [facility] PEG COVID-19 2020-07-23 Completed Muslim MRNA VACCINATION 00:00:00 [facility] PEG COVID-19 2020-07-23 Completed Muslim MRNA VACCINATION 00:00:00 [facility] PFIZER COVID-19 2020-07-23 Completed Muslim MRNA VACCINATION 00:00:00 [facility] PFIZER COVID-19 2020-07-23 Completed Muslim MRNA VACCINATION 00:00:00 [facility] PFIZER COVID-19 2020-07-23 Completed Muslim MRNA VACCINATION 00:00:00 [facility] PFIZER COVID-19 2020-07-23 Completed Muslim MRNA VACCINATION 00:00:00 [facility] PFIZER COVID-19 2020-07-23 Completed Muslim MRNA VACCINATION 00:00:00 [facility] PFIZER COVID-19 2020-07-23 Completed Muslim MRNA VACCINATION 00:00:00 [facility] PFIZER COVID-19 2020-07-23 Completed Muslim MRNA VACCINATION 00:00:00 [facility] PFIZER COVID-19 2020-07-23 Completed Muslim MRNA VACCINATION 00:00:00 [facility] PFIZER COVID-19 2020-07-23 Completed Muslim MRNA VACCINATION 00:00:00 [facility] PFIZER COVID-19 2020-07-23 Completed Muslim MRNA VACCINATION 00:00:00 [facility] PFIZER COVID-19 2020-07-23 Completed Muslim MRNA VACCINATION 00:00:00 [facility] PFIZER COVID-19 2020-07-23 Completed Muslim MRNA VACCINATION 00:00:00 [facility] PFIZER COVID-19 2020-07-23 Completed Muslim MRNA VACCINATION 00:00:00 [facility] PFIZER COVID-19 2020-07-23 Completed Muslim MRNA VACCINATION 00:00:00 [facility] SARS-COV-2 COVID-19 2020-07-23 Completed [facility] of PFIZER VACCINE 00:00:00 [facility] SARS-COV-2 COVID-19 2020-07-23 Completed Unive rsity of PFIZER VACCINE 00:00:00 [facility] SARS-COV-2 COVID-19 2020-07-23 Completed [facility]ive rs[facility] of PFIZER VACCINE 00:00:00 [facility] SARS-COV-2 COVID-19 2020-07-23 Completed [facility]ive rsity of PFIZER VACCINE 00:00:00 [facility] SARS-COV-2 COVID-19 2020-07-23 Completed [facility] rs[facility] of PFIZER VACCINE 00:00:00 [facility] SARS-COV-2 COVID-19 2020-07-23 Completed [facility] of PFIZER VACCINE 00:00:00 [facility] SARS-COV-2 COVID-19 2020-07-23 Completed [facility] of PFIZER VACCINE 00:00:00 [facility] SARS-COV-2 COVID-19 2020-07-23 Completed [facility]ive rsity of PFIZER VACCINE 00:00:00 [facility] SARS-COV-2 COVID-19 2020-07-23 Completed Unive rsity of PFIZER VACCINE 00:00:00 [facility] SARS-COV-2 COVID-19 2020-07-23 Completed Unive rsity of PFIZER VACCINE 00:00:00 [facility] SARS-COV-2 COVID-19 2020-07-23 Completed Unive rsity of PFIZER VACCINE 00:00:00 [facility] SARS-COV-2 COVID-19 2020-07-23 Completed Unive rsity of PFIZER VACCINE 00:00:00 [facility] SARS-COV-2 COVID-19 2020-07-23 Completed Unive rsity of PFIZER VACCINE 00:00:00 [facility] SARS-COV-2 COVID-19 2020-07-23 Completed Unive rsity of PFIZER VACCINE 00:00:00 [facility] SARS-COV-2 COVID-19 2020-07-23 Completed Unive rsity of PFIZER VACCINE 00:00:00 [facility] SARS-COV-2 COVID-19 2020-07-23 Completed [facility]ive rs[facility] of PFIZER VACCINE 00:00:00 [facility] SARS-COV-2 COVID-19 2020-07-23 Completed [facility]ive rs[facility] of PFIZER VACCINE 00:00:00 [facility] PFIZER COVID-19 2020-07-23 Completed Muslim MRNA VACCINATION 00:00:00 [facility] PFIZER COVID-19 2020-07-02 Completed Muslim MRNA VACCINATION 00:00:00 [facility] PFIZER COVID-19 2020-07-02 Completed [facility] VACCINATION 00:00:00 [facility] PFIZER COVID-19 2020-07-02 Completed Muslim MRNA VACCINATION 00:00:00 [facility] PFIZER COVID-19 2020-07-02 Completed Muslim MRNA VACCINATION 00:00:00 [facility] PFIZER COVID-19 2020-07-02 Completed Muslim MRNA VACCINATION 00:00:00 [facility] PFIZER COVID-19 2020-07-02 Completed Muslim MRNA VACCINATION 00:00:00 [facility] PFIZER COVID-19 2020-07-02 Completed Muslim MRNA VACCINATION 00:00:00 [facility] PFIZER COVID-19 2020-07-02 Completed Muslim MRNA VACCINATION 00:00:00 [facility] PFIZER COVID-19 2020-07-02 Completed Muslim MRNA VACCINATION 00:00:00 [facility] PFIZER COVID-19 2020-07-02 Completed Muslim MRNA VACCINATION 00:00:00 [facility] PFIZER COVID-19 2020-07-02 Completed Muslim MRNA VACCINATION 00:00:00 [facility] PFIZER COVID-19 2020-07-02 Completed Muslim MRNA VACCINATION 00:00:00 [facility] PFIZER COVID-19 2020-07-02 Completed Muslim MRNA VACCINATION 00:00:00 [facility] PFIZER COVID-19 2020-07-02 Completed Muslim MRNA VACCINATION 00:00:00 [facility] PFIZER COVID-19 2020-07-02 Completed Muslim MRNA VACCINATION 00:00:00 [facility] PFIZER COVID-19 2020-07-02 Completed Muslim MRNA VACCINATION 00:00:00 [facility] PFIZER COVID-19 2020-07-02 Completed Muslim MRNA VACCINATION 00:00:00 [facility] PFIZER COVID-19 2020-07-02 Completed Muslim MRNA VACCINATION 00:00:00 [facility] PFIZER COVID-19 2020-07-02 Completed Muslim MRNA VACCINATION 00:00:00 [facility] PFIZER COVID-19 2020-07-02 Completed Muslim MRNA VACCINATION 00:00:00 [facility] PFIZER COVID-19 2020-07-02 Completed Muslim MRNA VACCINATION 00:00:00 [facility] PFIZER COVID-19 2020-07-02 Completed Muslim MRNA VACCINATION 00:00:00 [facility] PFIZER COVID-19 2020-07-02 Completed Muslim MRNA VACCINATION 00:00:00 [facility] PFIZER COVID-19 2020-07-02 Completed Muslim MRNA VACCINATION 00:00:00 [facility] PFIZER COVID-19 2020-07-02 Completed Muslim MRNA VACCINATION 00:00:00 [facility] PFIZER COVID-19 2020-07-02 Completed Muslim MRNA VACCINATION 00:00:00 [facility] PFIZER COVID-19 2020-07-02 Completed Muslim MRNA VACCINATION 00:00:00 [facility] PFIZER COVID-19 2020-07-02 Completed Muslim MRNA VACCINATION 00:00:00 [facility] PFIZER COVID-19 2020-07-02 Completed Muslim MRNA VACCINATION 00:00:00 [facility] PFIZER COVID-19 2020-07-02 Completed [facility] MRNA VACCINATION 00:00:00 [facility] PFIZER COVID-19 2020-07-02 Completed Muslim MRNA VACCINATION 00:00:00 [facility] PFIZER COVID-19 2020-07-02 Completed Muslim MRNA VACCINATION 00:00:00 [facility] PFIZER COVID-19 2020-07-02 Completed Muslim MRNA VACCINATION 00:00:00 [facility] PFIZER COVID-19 2020-07-02 Completed Muslim MRNA VACCINATION 00:00:00 [facility] PFIZER COVID-19 2020-07-02 Completed Muslim MRNA VACCINATION 00:00:00 [facility] PFIZER COVID-19 2020-07-02 Completed Muslim MRNA VACCINATION 00:00:00 [facility] PFIZER COVID-19 2020-07-02 Completed Muslim MRNA VACCINATION 00:00:00 [facility] PFIZER COVID-19 2020-07-02 Completed Muslim MRNA VACCINATION 00:00:00 [facility] PFIZER COVID-19 2020-07-02 Completed Muslim MRNA VACCINATION 00:00:00 [facility] PFIZER COVID-19 2020-07-02 Completed Muslim MRNA VACCINATION 00:00:00 [facility] PFIZER COVID-19 2020-07-02 Completed Muslim MRNA VACCINATION 00:00:00 [facility] PFIZER COVID-19 2020-07-02 Completed Muslim MRNA VACCINATION 00:00:00 [facility] PFIZER COVID-19 2020-07-02 Completed Muslim MRNA VACCINATION 00:00:00 [facility] PFIZER COVID-19 2020-07-02 Completed Muslim MRNA VACCINATION 00:00:00 [facility] PFIZER COVID-19 2020-07-02 Completed Muslim MRNA VACCINATION 00:00:00 [facility] PFIZER COVID-19 2020-07-02 Completed Muslim MRNA VACCINATION 00:00:00 [facility] PFIZER COVID-19 2020-07-02 Completed Muslim MRNA VACCINATION 00:00:00 [facility] PFIZER COVID-19 2020-07-02 Completed Muslim MRNA VACCINATION 00:00:00 [facility] PFIZER COVID-19 2020-07-02 Completed Muslim MRNA VACCINATION 00:00:00 [facility] SARS-COV-2 COVID-19 2020-07-02 Completed [facility] of PFIZER VACCINE 00:00:00 [facility] SARS-COV-2 COVID-19 2020-07-02 Completed Unive rs[facility] of PFIZER VACCINE 00:00:00 [facility] SARS-COV-2 COVID-19 2020-07-02 Completed Unive rsity of PFIZER VACCINE 00:00:00 [facility] SARS-COV-2 COVID-19 2020-07-02 Completed Unive [facility] of PFIZER VACCINE 00:00:00 [facility] SARS-COV-2 COVID-19 2020-07-02 Completed [facility]ive [facility] of PFIZER VACCINE 00:00:00 [facility] SARS-COV-2 COVID-19 2020-07-02 Completed [facility]ive [facility] of PFIZER VACCINE 00:00:00 [facility] SARS-COV-2 COVID-19 2020-07-02 Completed [facility]ive [facility] of PFIZER VACCINE 00:00:00 [facility] SARS-COV-2 COVID-19 2020-07-02 Completed [facility]ive [facility] of PFIZER VACCINE 00:00:00 [facility] SARS-COV-2 COVID-19 2020-07-02 Completed [facility]ive [facility] of PFIZER VACCINE 00:00:00 [facility] SARS-COV-2 COVID-19 2020-07-02 Completed [facility]ive [facility] of PFIZER VACCINE 00:00:00 [facility] SARS-COV-2 COVID-19 2020-07-02 Completed [facility]ive rs[facility] of PFIZER VACCINE 00:00:00 [facility] SARS-COV-2 COVID-19 2020-07-02 Completed Unive rsity of PFIZER VACCINE 00:00:00 [facility] SARS-COV-2 COVID-19 2020-07-02 Completed [facility]ive rs[facility] of PFIZER VACCINE 00:00:00 [facility] SARS-COV-2 COVID-19 2020-07-02 Completed [facility]ive rs[facility] of PFIZER VACCINE 00:00:00 [facility] SARS-COV-2 COVID-19 2020-07-02 Completed Unive rs[facility] of PFIZER VACCINE 00:00:00 [facility] SARS-COV-2 COVID-19 2020-07-02 Completed Unive rsity of PFIZER VACCINE 00:00:00 [facility] SARS-COV-2 COVID-19 2020-07-02 Completed [facility]ive rs[facility] of PFIZER VACCINE 00:00:00 [facility] PFIZER COVID-19 2020-07-02 Completed Muslim MRNA VACCINATION 00:00:00 [facility] Influenza Virus 2017-03-08 Completed [facility] Vaccine 00:00:00 [facility] Influenza Virus 2017-03-08 Completed [facility] Vaccine 00:00:00 [facility] Influenza Virus 2017-03-08 Completed [facility] of Vaccine 00:00:00 [facility] Influenza Virus 2017-03-08 Completed [facility] of Vaccine 00:00:00 [facility] Influenza Virus 2017-03-08 Completed [facility] of Vaccine 00:00:00 [facility] Influenza Virus 2017-03-08 Completed [facility] of Vaccine 00:00:00 [facility] Influenza Virus 2017-03-08 Completed [facility] of Vaccine 00:00:00 [facility] Influenza Virus 2017-03-08 Completed [facility] of Vaccine 00:00:00 [facility] Influenza Virus 2017-03-08 Completed [facility] of Vaccine 00:00:00 [facility] Influenza Virus 2017-03-08 Completed [facility] of Vaccine 00:00:00 [facility] Influenza Virus 2017-03-08 Completed [facility] of Vaccine 00:00:00 [facility] Influenza Virus 2017-03-08 Completed [facility] of Vaccine 00:00:00 [facility] Influenza Virus 2017-03-08 Completed [facility] of Vaccine 00:00:00 [facility] Influenza Virus 2017-03-08 Completed [facility] of Vaccine 00:00:00 [facility] Influenza Virus 2017-03-08 Completed [facility] of Vaccine 00:00:00 [facility] Influenza Virus 2017-03-08 Completed [facility] of Vaccine 00:00:00 [facility] Influenza Virus 2017-03-08 Completed [facility] of Vaccine 00:00:00 [facility] Influenza Virus 2017-03-08 Completed [facility] of Vaccine 00:00:00 [facility] Influenza Virus 2017-03-08 Completed [facility] of Vaccine 00:00:00 [facility] Influenza Virus 2017-03-08 Completed [facility] of Vaccine 00:00:00 [facility] Influenza Virus 2017-03-08 Completed [facility] of Vaccine 00:00:00 [facility] Influenza Virus 2014-01-30 Completed [facility] of Vaccine (3+ yrs) 00:00:00 [facility] Pneumococcal 13 2014-01-30 Completed [facility] of Conjugate, PCV13 00:00:00 [facility] (Prevnar 13) [facility] Influenza Virus 2014-01-30 Completed [facility] Vaccine (3+ yrs) 00:00:00 [facility] Pneumococcal 13 2014-01-30 Completed [facility] of Conjugate, PCV13 00:00:00 [facility] (Prevnar 13) [facility] Influenza Virus 2014-01-30 Completed [facility] Vaccine (3+ yrs) 00:00:00 [facility] Pneumococcal 13 2014-01-30 Completed [facility] of Conjugate, PCV13 00:00:00 [facility] (Prevnar 13) [facility] Influenza Virus 2014-01-30 [...] [facility] of Conjugate, PCV13 00:00:00 [facility] (Prevnar 13) [facility] Influenza Virus 2014-01-30 [...] [facility] of Conjugate, PCV13 00:00:00 [facility] (Prevnar 13) [facility] Influenza Virus 2014-01-30 Completed [facility] Vaccine (3+ yrs) 00:00:00 [facility] Pneumococcal 13 2014-01-30 Completed [facility] of Conjugate, PCV13 00:00:00 [facility] (Prevnar 13) [facility] Influenza Virus 2014-01-30 [...] [facility] of Conjugate, PCV13 00:00:00 [facility] (Prevnar 13) [facility] Influenza Virus 2014-01-30 Completed [facility] of Vaccine (3+ yrs) 00:00:00 [facility] Pneumococcal 13 2014-01-30 Completed [facility] of Conjugate, PCV13 00:00:00 [facility] (Prevnar 13) [facility] Influenza Virus 2014-01-30 [...] [facility] of Conjugate, PCV13 00:00:00 [facility] (Prevnar 13) [facility] Influenza Virus 2014-01-30 [...] Polysaccharide, 00:00:[address] [facility] ical PPSV23 (PNEUMOVAX) Branch Influenza Virus 2012-02-16 Completed [facility] of Vaccine 00:00:00 [facility] PPD (TB) 2012-02-16 Completed [facility] of 00:00:00 [facility] Pneumococcal 2012-02-16 Completed University o f Polysaccharide, 00:00:[address] [facility] ical PPSV23 (PNEUMOVAX) Branch Influenza Virus 2012-02-16 Completed [facility] of Vaccine 00:00:00 [facility] PPD (TB) 2012-02-16 Completed [facility] 00:00:00 [facility] Pneumococcal 2012-02-16 Completed University o f Polysaccharide, 00:00:[address] [facility] ical PPSV23 (PNEUMOVAX) Branch Influenza Virus 2012-02-16 Completed [facility] of Vaccine 00:00:00 [facility] PPD (TB) 2012-02-16 Completed [facility] of 00:00:00 [facility] Pneumococcal 2012-02-16 Completed University o f Polysaccharide, 00:00:[address] [facility] ical PPSV23 (PNEUMOVAX) Branch Influenza Virus 2012-02-16 Completed [facility] of Vaccine 00:00:00 [facility] PPD (TB) 2012-02-16 Completed [facility] 00:00:00 [facility] Pneumococcal 2012-02-16 Completed [facility] o f Polysaccharide, 00:00:00 [facility] PPSV23 (PNEUMOVAX) Branch Influenza Virus 2012-02-16 Completed [facility] of Vaccine 00:00:00 [facility] PPD (TB) 2012-02-16 Completed [facility] 00:00:00 [facility] Pneumococcal 2012-02-16 Completed [facility] o f Polysaccharide, 00:00:00 [place] [facility] PPSV23 (PNEUMOVAX) Branch Influenza Virus 2012-02-16 Completed [facility] of Vaccine 00:00:00 [facility] PPD (TB) 2012-02-16 Completed [facility] 00:00:00 [facility] Pneumococcal 2012-02-16 Completed University o f Polysaccharide, 00:00:00 [place] [facility] PPSV23 (PNEUMOVAX) Branch Influenza Virus 2012-02-16 Completed [facility] of Vaccine 00:00:00 [facility] PPD (TB) 2012-02-16 Completed [facility] 00:00:00 [facility] Pneumococcal 2012-02-16 Completed University o f Polysaccharide, 00:00:00 [place] [facility] PPSV23 (PNEUMOVAX) Branch Influenza Virus 2012-02-16 Completed [facility] of Vaccine 00:00:00 [facility] PPD (TB) 2012-02-16 Completed [facility] 00:00:00 [facility] Pneumococcal 2012-02-16 Completed University o f Polysaccharide, 00:00:00 [place] [facility] PPSV23 (PNEUMOVAX) Branch Influenza Virus 2012-02-16 Completed [facility] of Vaccine 00:00:00 [facility] PPD (TB) 2012-02-16 Completed [facility] 00:00:00 [facility] Pneumococcal 2012-02-16 Completed University o f Polysaccharide, 00:00:00 [place] [facility] PPSV23 (PNEUMOVAX) Branch Influenza Virus 2012-02-16 Completed [facility] of Vaccine 00:00:00 [facility] PPD (TB) 2012-02-16 Completed [facility] of 00:00:00 [facility] Pneumococcal 2012-02-16 Completed University o f Polysaccharide, 00:00:00 [place] [facility] PPSV23 (PNEUMOVAX) Branch Influenza Virus 2012-02-16 Completed [facility] of Vaccine 00:00:00 [facility] PPD (TB) 2012-02-16 Completed [facility] of 00:00:00 [facility] Pneumococcal 2012-02-16 Completed University o f Polysaccharide, 00:00:00 [place] [facility] PPSV23 (PNEUMOVAX) Branch Influenza Virus 2012-02-16 Completed Universit y of Vaccine 00:00:00 [facility] PPD (TB) 2012-02-16 Completed University of 00:00:00 [facility] Pneumococcal 2012-02-16 Completed University o f Polysaccharide, 00:00:00 [place] [facility] PPSV23 (PNEUMOVAX) Branch Influenza Virus 2012-02-16 Completed Universit y of Vaccine 00:00:00 [facility] PPD (TB) 2012-02-16 Completed University of 00:00:00 [facility] Pneumococcal 2012-02-16 Completed [facility] o f Polysaccharide, 00:00:00 [facility] PPSV23 (PNEUMOVAX) Branch Influenza Virus 2012-02-16 Completed Universit y of Vaccine 00:00:00 [facility] PPD (TB) 2012-02-16 Completed University of 00:00:00 [facility] Pneumococcal 2012-02-16 Completed [facility] o f Polysaccharide, 00:00:00 [facility] PPSV23 (PNEUMOVAX) Branch Influenza Virus 2012-02-16 Completed Universit y of Vaccine 00:00:00 [facility] PPD (TB) 2012-02-16 Completed University of 00:00:00 [facility] Pneumococcal 2012-02-16 Completed [facility] o f Polysaccharide, 00:00:00 [facility] PPSV23 (PNEUMOVAX) Branch Influenza Virus 2012-02-16 Completed Universit y of Vaccine 00:00:00 [facility] PPD (TB) 2012-02-16 Completed University of 00:00:00 [facility] Pneumococcal 2012-02-16 Completed [facility] o f Polysaccharide, 00:00:00 [facility] PPSV23 (PNEUMOVAX) Branch Influenza Virus 2012-02-16 Completed Universit y of Vaccine 00:00:00 [facility] PPD (TB) 2012-02-16 Completed University of 00:00:00 [facility] Pneumococcal 2012-02-16 Completed [facility] o f Polysaccharide, 00:00:00 [facility] PPSV23 (PNEUMOVAX) Branch Influenza Virus 2012-02-16 Completed Universit y of Vaccine 00:00:00 [facility] PPD (TB) 2012-02-16 Completed University of 00:00:00 [facility] Pneumococcal 2012-02-16 Completed [facility] o f Polysaccharide, 00:00:00 [facility] PPSV23 (PNEUMOVAX) Branch Influenza Virus 2012-02-16 Completed Universit y of Vaccine 00:00:00 [facility] PPD (TB) 2012-02-16 Completed University of 00:00:00 [facility] Pneumococcal 2012-02-16 Completed [facility] o f Polysaccharide, 00:00:00 [facility] PPSV23 (PNEUMOVAX) Branch Influenza Virus 2012-02-16 Completed [facility]it y of Vaccine 00:00:00 [facility] PPD (TB) 2012-02-16 Completed University of 00:00:00 [facility] Pneumococcal 2012-02-16 Completed [facility] o f Polysaccharide, 00:00:00 [facility] PPSV23 (PNEUMOVAX) Branch Influenza Virus 2012-02-16 Completed Universit y of Vaccine 00:00:00 [facility] PPD (TB) 2012-02-16 Completed University of 00:00:00 [facility] Hep B, Adol or Pedi 2011-09-01 Completed Unive rsity of Dosage 00:00:00 [facility] Hep B, Adol or Pedi 2011-09-01 Completed Unive rsity of Dosage 00:00:00 [facility] Hep B, Adol or Pedi 2011-09-01 Completed Unive rsity of Dosage 00:00:00 [facility] Hep B, Adol or Pedi 2011-09-01 Completed Unive rsity of Dosage 00:00:00 [facility] Hep B, Adol or Pedi 2011-09-01 Completed Unive rsity of Dosage 00:00:00 [facility] Hep B, Adol or Pedi 2011-09-01 Completed Unive rsity of Dosage 00:00:00 [facility] Hep B, Adol or Pedi 2011-09-01 Completed Unive rsity of Dosage 00:00:00 [facility] Hep B, Adol or Pedi 2011-09-01 Completed Unive rsity of Dosage 00:00:00 [facility] Hep B, Adol or Pedi 2011-09-01 Completed Unive rsity of Dosage 00:00:00 [facility] Hep B, Adol or Pedi 2011-09-01 Completed Unive rsity of Dosage 00:00:00 [facility] Hep B, Adol [...] 2011-03-17 Completed Unive rsity of Dosage 00:00:00 [facility] Influenza Virus 2011-02-10 Completed Universit y of Vaccine 00:00:00 [facility] Hep B, Adol or Pedi 2011-02-10 Completed Unive rsity of Dosage 00:00:00 [facility] Influenza Virus 2011-02-10 Completed Universit y of Vaccine 00:00:00 [facility] Hep B, Adol or Pedi 2011-02-10 Completed Unive rsity of Dosage 00:00:00 [facility] Influenza Virus 2011-02-10 Completed Universit y of Vaccine 00:00:00 [facility] Hep B, Adol or Pedi 2011-02-10 Completed Unive rsity of Dosage 00:00:00 [facility] Influenza Virus 2011-02-10 Completed Universit y of Vaccine 00:00:00 [facility] Hep B, Adol or Pedi 2011-02-10 Completed Unive rsity of Dosage 00:00:00 [facility] Influenza Virus 2011-02-10 Completed Universit y of Vaccine 00:00:00 [facility] Hep B, Adol or Pedi 2011-02-10 Completed Unive rsity of Dosage 00:00:00 [facility] Influenza Virus 2011-02-10 Completed Universit y of Vaccine 00:00:00 [facility] Hep B, Adol or Pedi 2011-02-10 Completed Unive rsity of Dosage 00:00:00 [facility] Influenza Virus 2011-02-10 Completed Universit y of Vaccine 00:00:00 [facility] Hep B, Adol or Pedi 2011-02-10 Completed Unive rsity of Dosage 00:00:00 [facility] Influenza Virus 2011-02-10 Completed Universit y of Vaccine 00:00:00 [facility] Hep B, Adol or Pedi 2011-02-10 Completed Unive rsity of Dosage 00:00:00 [facility] Influenza Virus 2011-02-10 Completed Universit y of Vaccine 00:00:00 [facility] Hep B, Adol or Pedi 2011-02-10 Completed Unive rsity of Dosage 00:00:00 [facility] Influenza Virus 2011-02-10 Completed Universit y of Vaccine 00:00:00 [facility] Hep B, Adol or Pedi 2011-02-10 Completed Unive rsity of Dosage 00:00:00 [facility] Influenza Virus 2011-02-10 Completed Universit y of Vaccine 00:00:00 [facility] Hep B, Adol or Pedi 2011-02-10 Completed Unive rsity of Dosage 00:00:00 [facility] Influenza Virus 2011-02-10 Completed [facility]it y of Vaccine 00:00:00 [facility] Hep B, Adol or Pedi 2011-02-10 Completed Unive rsity of Dosage 00:00:00 [facility] Influenza Virus 2011-02-10 Completed [facility]it y of Vaccine 00:00:00 [facility] Hep B, Adol or Pedi 2011-02-10 Completed Unive rsity of Dosage 00:00:00 [facility] Influenza Virus 2011-02-10 Completed Universit y of Vaccine 00:00:00 [facility] Hep B, Adol or Pedi 2011-02-10 Completed Unive rsity of Dosage 00:00:00 [facility] Influenza Virus 2011-02-10 Completed [facility]it y of Vaccine 00:00:00 [facility] Hep B, Adol or Pedi 2011-02-10 Completed Unive rsity of Dosage 00:00:00 [facility] Influenza Virus 2011-02-10 Completed [facility]it y of Vaccine 00:00:00 [facility] Hep B, Adol or Pedi 2011-02-10 Completed Unive rsity of Dosage 00:00:00 [facility] Influenza Virus 2011-02-10 Completed Universit y of Vaccine 00:00:00 [facility] Hep B, Adol or Pedi 2011-02-10 Completed Unive rsity of Dosage 00:00:00 [facility] Influenza Virus 2011-02-10 Completed Universit y of Vaccine 00:00:00 [facility] Hep B, Adol or Pedi 2011-02-10 Completed Unive rsity of Dosage 00:00:00 [facility] Influenza Virus 2011-02-10 Completed Universit y of Vaccine 00:00:00 [facility] Hep B, Adol or Pedi 2011-02-10 Completed Unive rsity of Dosage 00:00:00 [facility] Influenza Virus 2011-02-10 Completed Universit y of Vaccine 00:00:00 [facility] Hep B, Adol or Pedi 2011-02-10 Completed Unive rsity of Dosage 00:00:00 [facility] Influenza Virus 2011-02-10 Completed Universit y of Vaccine 00:00:00 [facility] Hep B, Adol or Pedi 2011-02-10 Completed Unive rsity of Dosage 00:00:00 [facility] PPD (TB) 2010-11-18 Completed University of 00:00:00 [facility] TDAP (ADACEL) 2010-11-18 Completed University of VACCINE 00:00:00 [facility] PPD (TB) 2010-11-18 Completed University of 00:00:00 [facility] TDAP (ADACEL) 2010-11-18 Completed University of VACCINE 00:00:00 [facility] PPD (TB) 2010-11-18 Completed University of 00:00:00 [facility] TDAP (ADACEL) 2010-11-18 Completed University of VACCINE 00:00:00 [facility] PPD (TB) 2010-11-18 Completed University of 00:00:00 [facility] TDAP (ADACEL) 2010-11-18 Completed University of VACCINE 00:00:00 [facility] PPD (TB) 2010-11-18 Completed University of 00:00:00 [facility] TDAP (ADACEL) 2010-11-18 Completed University of VACCINE 00:00:00 [facility] PPD (TB) 2010-11-18 Completed University of 00:00:00 [facility] TDAP (ADACEL) 2010-11-18 Completed University of VACCINE 00:00:00 [facility] PPD (TB) 2010-11-18 Completed University of 00:00:00 [facility] TDAP (ADACEL) 2010-11-18 Completed University of VACCINE 00:00:00 [facility] PPD (TB) 2010-11-18 Completed University of 00:00:00 [facility] TDAP (ADACEL) 2010-11-18 Completed University of VACCINE 00:00:00 [facility] PPD (TB) 2010-11-18 Completed University of 00:00:00 [facility] TDAP (ADACEL) 2010-11-18 Completed University of VACCINE 00:00:00 [facility] PPD (TB) 2010-11-18 Completed University of 00:00:00 [facility] TDAP (ADACEL) 2010-11-18 Completed University of VACCINE 00:00:00 [facility] PPD (TB) 2010-11-18 Completed University of 00:00:00 [facility] TDAP (ADACEL) 2010-11-18 Completed University of VACCINE 00:00:00 [facility] PPD (TB) 2010-11-18 Completed University of 00:00:00 [facility] TDAP (ADACEL) 2010-11-18 Completed University of VACCINE 00:00:00 [facility] PPD (TB) 2010-11-18 Completed University of 00:00:00 [facility] TDAP (ADACEL) 2010-11-18 Completed University of VACCINE 00:00:00 [facility] PPD (TB) 2010-11-18 Completed University of 00:00:00 [facility] TDAP (ADACEL) 2010-11-18 Completed University of VACCINE 00:00:00 [facility] PPD (TB) 2010-11-18 Completed University of 00:00:00 [facility] TDAP (ADACEL) 2010-11-18 Completed University of VACCINE 00:00:00 [facility] PPD (TB) 2010-11-18 Completed University of 00:00:00 [facility] TDAP (ADACEL) 2010-11-18 Completed University of VACCINE 00:00:00 [facility] PPD (TB) 2010-11-18 Completed University of 00:00:00 [facility] TDAP (ADACEL) 2010-11-18 Completed University of VACCINE 00:00:00 [facility] PPD (TB) 2010-11-18 Completed University of 00:00:00 [facility] TDAP (ADACEL) 2010-11-18 Completed University of VACCINE 00:00:00 [facility] PPD (TB) 2010-11-18 Completed University of 00:00:00 [facility] TDAP (ADACEL) 2010-11-18 Completed University of VACCINE 00:00:00 [facility] PPD (TB) 2010-11-18 Completed University of 00:00:00 [facility] TDAP (ADACEL) 2010-11-18 Completed University of VACCINE 00:00:00 [facility] PPD (TB) 2010-11-18 Completed University of 00:00:00 [facility] TDAP (ADACEL) 2010-11-18 Completed University of VACCINE 00:00:00 [facility] HEPATITIS A 2004-03-02 Completed University of 00:00:00 [facility] HEPATITIS A 2004-03-02 Completed University of 00:00:00 [facility] HEPATITIS A 2004-03-02 Completed University of 00:00:00 [facility] HEPATITIS A 2004-03-02 Completed University of 00:00:00 [facility] HEPATITIS A 2004-03-02 Completed University of 00:00:00 [facility] HEPATITIS A 2004-03-02 Completed University of 00:00:00 [facility] HEPATITIS A 2004-03-02 Completed University of 00:00:00 [facility] HEPATITIS A 2004-03-02 Completed University of 00:00:00 [facility] HEPATITIS A 2004-03-02 Completed University of 00:00:00 [facility] HEPATITIS A 2004-03-02 Completed University of 00:00:00 [facility] HEPATITIS A 2004-03-02 Completed University of 00:00:00 [facility] HEPATITIS A 2004-03-02 Completed University of 00:00:00 [facility] HEPATITIS A 2004-03-02 Completed University of 00:00:00 [facility] HEPATITIS A 2004-03-02 Completed University of 00:00:00 [facility] HEPATITIS A 2004-03-02 Completed University of 00:00:00 [facility] HEPATITIS A 2004-03-02 Completed University of 00:00:00 [facility] HEPATITIS A 2004-03-02 Completed University of 00:00:00 [facility] HEPATITIS A 2004-03-02 Completed University of 00:00:00 [facility] HEPATITIS A 2004-03-02 Completed University of 00:00:00 [facility] HEPATITIS A 2004-03-02 Completed University of 00:00:00 [facility] HEPATITIS A 2004-03-02 Completed University of 00:00:00 [facility] HEPATITIS A 2003-08-01 Completed University of 00:00:00 [facility] HEPATITIS A 2003-08-01 Completed University of 00:00:00 [facility] HEPATITIS A 2003-08-01 Completed University of 00:00:00 [facility] HEPATITIS A 2003-08-01 Completed University of 00:00:00 [facility] HEPATITIS A 2003-08-01 Completed University of 00:00:00 [facility] HEPATITIS A 2003-08-01 Completed University of 00:00:00 [facility] HEPATITIS A 2003-08-01 Completed University of 00:00:00 [facility] HEPATITIS A 2003-08-01 Completed University of 00:00:00 [facility] HEPATITIS A 2003-08-01 Completed University of 00:00:00 [facility] HEPATITIS A 2003-08-01 [...] HEPATITIS A 2003-08-01 Completed University of 00:00:00 [facility] HEPATITIS A 2003-08-01 Completed University of 00:00:00 [facility] HEPATITIS A 2003-08-01 Completed University of 00:00:00 [facility] HEPATITIS A 2003-08-01 Completed University of 00:00:00 [facility] Pneumococcal 2001-10-04 Completed [facility] o f Polysaccharide, 00:00:00 [place] [facility] PPSV23 (PNEUMOVAX) Branch PPD (TB) 2001-10-04 Completed University of 00:00:00 [facility] Pneumococcal 2001-10-04 Completed [facility] o f Polysaccharide, 00:00:00 [facility] PPSV23 (PNEUMOVAX) Branch PPD (TB) 2001-10-04 Completed University of 00:00:00 [facility] Pneumococcal 2001-10-04 Completed University o f Polysaccharide, 00:00:00 [facility] PPSV23 (PNEUMOVAX) Branch PPD (TB) 2001-10-04 Completed University of 00:00:00 [facility] Pneumococcal 2001-10-04 Completed [facility] o f Polysaccharide, 00:00:00 [facility] PPSV23 (PNEUMOVAX) Branch PPD (TB) 2001-10-04 Completed University of 00:00:00 [facility] Pneumococcal 2001-10-04 Completed University o f Polysaccharide, 00:00:00 [place] [facility] PPSV23 (PNEUMOVAX) Branch PPD (TB) 2001-10-04 Completed University of 00:00:00 [facility] Pneumococcal 2001-10-04 Completed University o f Polysaccharide, 00:00:00 [place] [facility] PPSV23 (PNEUMOVAX) Branch PPD (TB) 2001-10-04 Completed University of 00:00:00 [facility] Pneumococcal 2001-10-04 Completed [facility] o f Polysaccharide, 00:00:00 [place] [facility] PPSV23 (PNEUMOVAX) Branch PPD (TB) 2001-10-04 Completed University of 00:00:00 [facility] Pneumococcal 2001-10-04 Completed [facility] o f Polysaccharide, 00:00:00 [place] [facility] PPSV23 (PNEUMOVAX) Branch PPD (TB) 2001-10-04 Completed University of 00:00:00 [facility] Pneumococcal 2001-10-04 Completed [facility] o f Polysaccharide, 00:00:00 [place] [facility] PPSV23 (PNEUMOVAX) Branch PPD (TB) 2001-10-04 Completed University of 00:00:00 [facility] Pneumococcal 2001-10-04 Completed University o f Polysaccharide, 00:00:00 [place] [facility] PPSV23 (PNEUMOVAX) Branch PPD (TB) 2001-10-04 Completed University of 00:00:00 [facility] Pneumococcal 2001-10-04 Completed [facility] o f Polysaccharide, 00:00:00 [facility] PPSV23 (PNEUMOVAX) Branch PPD (TB) 2001-10-04 Completed University of 00:00:00 [facility] Pneumococcal 2001-10-04 Completed [facility] o f Polysaccharide, 00:00:00 [place] [facility] PPSV23 (PNEUMOVAX) Branch PPD (TB) 2001-10-04 Completed University of 00:00:00 [facility] Pneumococcal 2001-10-04 Completed University o f Polysaccharide, 00:00:00 [facility] PPSV23 (PNEUMOVAX) Branch PPD (TB) 2001-10-04 Completed University of 00:00:00 [facility] Pneumococcal 2001-10-04 Completed University o f Polysaccharide, 00:00:00 [facility] PPSV23 (PNEUMOVAX) Branch PPD (TB) 2001-10-04 Completed University of 00:00:00 [facility] Pneumococcal 2001-10-04 Completed University o f Polysaccharide, 00:00:00 [facility] PPSV23 (PNEUMOVAX) Branch PPD (TB) 2001-10-04 Completed University of 00:00:00 [facility] Pneumococcal 2001-10-04 Completed University o f Polysaccharide, 00:00:00 [facility] PPSV23 (PNEUMOVAX) Branch PPD (TB) 2001-10-04 Completed University of 00:00:00 [facility] Pneumococcal 2001-10-04 Completed University o f Polysaccharide, 00:00:00 [facility] PPSV23 (PNEUMOVAX) Branch PPD (TB) 2001-10-04 Completed University of 00:00:00 [facility] Pneumococcal 2001-10-04 Completed University o f Polysaccharide, 00:00:00 [place] [facility] PPSV23 (PNEUMOVAX) Branch PPD (TB) 2001-10-04 Completed University of 00:00:00 [facility] Pneumococcal 2001-10-04 Completed University o f Polysaccharide, 00:00:00 [facility] PPSV23 (PNEUMOVAX) Branch PPD (TB) 2001-10-04 Completed University of 00:00:00 [facility] Pneumococcal 2001-10-04 Completed University o f Polysaccharide, 00:00:00 [facility] PPSV23 (PNEUMOVAX) Branch PPD (TB) 2001-10-04 Completed University of 00:00:00 [facility] Pneumococcal 2001-10-04 Completed University o f Polysaccharide, 00:00:00 [facility] PPSV23 (PNEUMOVAX) Branch PPD (TB) 2001-10-04 Completed University 00:00:00 [facility] Vital Signs Vital Name Observation Time Observation Value Comments Source Systolic blood 2022-05-10 22:00:00 159 mm[Hg] Univer sity of pressure [facility] Diastolic blood 2022-05-10 22:00:00 87 mm[Hg] Unive rsity of pressure [facility] Heart rate 2022-05-10 22:00:00 56 /min Universi ty [facility] Body temperature 2022-05-10 22:00:00 36.61 Amina Univ ersity of [facility] Respiratory rate 2022-05-10 22:00:00 17 /min Univ ersity of [facility] Oxygen saturation in 2022-05-10 22:00:00 98 /min University of Arterial blood by [facility] Pulse oximetry Branch Body weight 2022-05-10 16:29:00 78.926 kg Universi ty [facility] BMI 2022-05-10 16:29:00 29.87 kg/m2 Universi [facility] Systolic blood 2022-05-08 22:30:00 168 mm[Hg] Univer sity of pressure [facility] Diastolic blood 2022-05-08 22:30:00 85 mm[Hg] Unive rsity of pressure [facility] Heart rate 2022-05-08 22:30:00 68 /min Universi ty [facility] Oxygen saturation in 2022-05-08 22:30:00 100 /min University of Arterial blood by [facility] Pulse oximetry Branch Body temperature 2022-05-08 22:22:00 35.89 Amina Univ ersity of [facility] Respiratory rate 2022-05-08 22:22:00 14 /min [facility] ers[facility] Body weight 2022-05-08 22:22:00 78.926 kg Universi ty [facility] BMI 2022-05-08 22:22:00 29.87 kg/m2 Universi ty of [facility] Systolic blood 2022-05-07 00:00:00 149 mm[Hg] Univer sity of pressure [facility] Diastolic blood 2022-05-07 00:00:00 132 mm[Hg] Unive rsity of pressure [facility] Heart rate 2022-05-07 00:00:00 59 /min [facility]i ty [facility] Respiratory rate 2022-05-07 00:00:00 14 /min Univ ersity of [facility] Oxygen saturation in 2022-05-07 00:00:00 99 /min University of Arterial blood by [facility] porfirio Pulse oximetry Branch Body temperature 2022-05-06 [...] 2022-04-22 19:50:00 30.55 kg/m2 Univers[facility] ty [facility] Oxygen saturation in 2022-04-22 19:50:00 96 /min University of Arterial blood by [facility] porfirio Pulse oximetry Branch Systolic blood 2022-03-05 15:23:00 167 mm[Hg] Univer sity of pressure [facility] Diastolic blood 2022-03-05 15:23:00 105 mm[Hg] Unive rsity of pressure [facility] Heart rate 2022-03-05 15:23:00 49 /min [facility] ty [facility] Body temperature 2022-03-05 15:18:00 36.67 Amina Univ ers[facility] Respiratory rate 2022-03-05 15:18:00 18 [...] of pressure [facility] Heart rate 2022-02-16 21:41:00 51 /min [facility] ty [facility] Body temperature 2022-02-16 21:41:00 36.56 Amina Univ ers[facility] of [facility] Respiratory rate 2022-02-16 21:41:00 17 /min Univ ersity of [facility] Oxygen saturation in 2022-02-16 21:41:00 98 /min University Arterial blood by [facility] Pulse oximetry Branch Body height 2022-02-11 16:02:00 162.6 cm Universi ty [facility] Body weight 2022-02-11 16:02:00 79.379 kg Universi ty [facility] BMI 2022-02-11 16:02:00 30.04 kg/m2 [facility] Systolic blood 2021-11-20 13:47:00 165 mm[Hg] Univer sity of pressure [facility] Diastolic blood 2021-11-20 13:47:00 83 mm[Hg] Unive rsity of pressure [facility] Heart rate 2021-11-20 13:47:00 58 /min [facility] ty [facility] Body temperature 2021-11-20 13:42:00 36.39 Amina Univ ers[facility] of [facility] Respiratory rate 2021-11-20 13:42:00 16 /min Univ ersity of [facility] Body height 2021-11-20 13:42:00 162.6 cm [facility] ty [facility] Body weight 2021-11-20 13:42:00 84.369 kg [facility] BMI 2021-11-20 13:42:00 31.93 kg/m2 Universi ty of [facility] Systolic blood 2021-07-14 15:18:00 142 [...] 2022-05-10 22:00:00 159 mm[Hg] Univer [facility]ity of [facility] Diastolic blood 2022-05-10 22:00:00 87 mm[Hg] Unive rsity of pressure [facility] Heart rate 2022-05-10 22:00:00 56 /min [facility] Body temperature 2022-05-10 22:00:00 36.61 Amina [facility] Respiratory rate 2022-05-10 22:00:00 17 /[facility] in 2022-05-10 22:00:00 98 /min [facility] Arterial blood by [facility] Pulse oximetry Branch Body weight 2022-05-10 16:29:00 78.926 kg [facility] BMI 2022-05-10 16:29:00 29.87 kg/m2 [facility] Body height 2022-05-06 20:12:00 162.6 cm [facility] Systolic blood 2022-03-05 15:23:00 167 mm[Hg] Univer sity of pressure [facility] Diastolic blood 2022-03-05 15:23:00 105 mm[Hg] Unive rsity of pressure [facility] Heart rate 2022-03-05 15:23:00 49 /min [facility] Body temperature 2022-03-05 15:18:00 36.67 Amina [facility] Respiratory rate 2022-03-05 15:18:00 18 /min [facility] Body height 2022-03-05 15:18:00 162.6 cm Universi [facility] Body weight 2022-03-05 15:18:00 74.707 kg Universi [facility] BMI 2022-03-05 15:18:00 28.27 kg/m2 [facility] Oxygen saturation in 2022-02-16 21:41:00 98 /min [facility] Arterial blood by [facility] Pulse oximetry Branch Systolic blood 2020-12-08 15:48:00 125 mm[Hg] [facility] pressure Diastolic blood 2020-12-08 15:48:00 76 mm[Hg] [facility] pressure Heart rate 2020-12-08 15:48:00 64 /min [facility] Body temperature 2020-12-08 15:48:00 36.61 Amina [facility] Respiratory rate 2020-12-08 15:48:00 17 /min [facility] Body height 2020-12-08 15:48:00 162.6 cm [facility] Body weight 2020-12-08 15:48:00 98.884 kg [facility] BMI 2020-12-08 15:48:00 37.42 kg/m2 [facility] Oxygen saturation in 2020-12-08 15:48:00 97 /min [facility] Arterial blood by Pulse oximetry Respitory Rate 2020-08-30 13:00:00 [facility] [facility] [place] Systolic (mm Hg) 2020-08-30 13:00:00 Caesar rial [place] Diastolic (mm Hg) 2020-08-30 13:00:00 Mem orial [place] Systolic (mm Hg) 2020-08-30 11:00:00 Caesar rial [place] Diastolic (mm Hg) 2020-08-30 11:00:00 Mem orial [place] Temperature Oral (F) 2020-08-30 11:00:00 98.4 F [facility] [place] Respitory Rate 2020-08-30 11:00:00 [facility] [place] Respitory Rate 2020-08-30 10:00:00 Memori al [place] Systolic (mm Hg) 2020-08-30 10:00:00 Caesar jonatan [place] Diastolic (mm Hg) 2020-08-30 10:00:00 Mem orial [place] Temperature Oral (F) 2020-08-30 00:00:00 96.9 F [facility] [place] Temperature Oral (F) 2020-08-29 11:26:00 97.6 F [facility] [place] Height 2020-08-29 10:30:00 162.56 cm [facility] [place] Weight 2020-08-29 10:30:00 [facility] [place] BMI Calculated 2020-08-29 10:30:00 [place] andre Marty Procedures Procedure Date / Time Performing Clinician Source Performed URINALYSIS 2022-05-10 19:36:00 Home Matthews [facility] TROPONIN I 2022-05-10 18:34:00 Home Matthews [facility] COMP. METABOLIC PANEL 2022-05-10 18:34:[address] [facility] ([id number]) [facility] CBC WITH DIFF 2022-05-10 18:34:00 Hmoe Matthews [facility] XR CHEST 2 VW 2022-05-10 17:24:58 Byron Home B [facility] CONSENT/REFUSAL FOR 2022-05-10 16:26:23 Doctor Unassigned, [facility] DIAGNOSIS AND TREATMENT [place] [facility] CONSENT/REFUSAL FOR 2022-05-10 16:26:09 Doctor Unassigned, [facility] DIAGNOSIS AND TREATMENT [place] [facility] URINALYSIS 2022-05-08 22:43:00 Theresa Hickman [facility] XR CHEST 2 VW 2022-05-06 22:56:53 Anette Olea [facility] COMP. METABOLIC PANEL 2022-05-06 22:14:00 Anette Olea [facility] ([id number]) Medical Java CBC WITH DIFF 2022-05-06 22:14:00 Anette Olea [facility] COVID-19 (ID NOW RAPID 2022-05-06 22:14:00 Anette Olea [facility] TESTING) Medical Java BASIC METABOLIC PANEL (NA, 2022-04-22 21:23:00 [facility] K, CL, CO2, GLUCOSE, BUN, Medica l Branch CREATININE, [place]) CBC WITH DIFF 2022-04-22 21:23:00 [facility] CONSENT/REFUSAL FOR 2022-04-22 19:45:46 Doctor Unassigned, [facility] DIAGNOSIS AND TREATMENT [place] Medical [facility] SARS-COV-2 COVID-19 2022-03-05 16:09:27 [facility] DIMITRIS-SUCROSE VACCINE [address] [place] [address] YRS+, BIVALENT 0.3ML, IM, (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) FLU 2022-03-05 16:09:27 [facility] VACC(),65+YR,0.5 Medica l Branch ML,IM,ADJUVANTED,QUAD(FLUA D) FLU 2022-03-05 16:09:27 [facility] VACC(),65+YR,0.5 Medica l Branch ML,IM,ADJUVANTED,QUAD(FLUA D) SARS-COV-2 COVID-19 2022-03-05 16:09:27 [facility] DIMITRIS-SUCROSE VACCINE [address] [place] [address] YRS+, BIVALENT 0.3ML, IM, (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) MAGNESIUM 2022-02-15 09:41:00 Sofia Garcia [facility] BASIC METABOLIC PANEL (NA, 2022-02-15 09:41:00 Sofia Garcia [facility] K, CL, CO2, GLUCOSE, BUN, Medica l Branch CREATININE, CA) CBC WITH DIFF 2022-02-15 09:41:00 Radha Sofia [facility] N-TERMINAL PRO-BNP 2022-02-15 09:41:00 Sofia Garcia [facility] CBC WITH DIFF 2022-02-15 09:41:00 Sofia Garcia [facility] BASIC METABOLIC PANEL (NA, 2022-02-15 09:41:00 Sofia Garcia [facility] K, CL, CO2, GLUCOSE, BUN, Medica l Branch CREATININE, CA) MAGNESIUM 2022-02-15 09:41:00 Sofia Garcia [facility] N-TERMINAL PRO-BNP 2022-02-15 09:41:00 Sofia Garcia [facility] BASIC METABOLIC PANEL (NA, 2022-02-13 09:40:00 Sofia Garcia [facility] K, CL, CO2, GLUCOSE, BUN, Medica l Branch CREATININE, CA) CBC WITH DIFF 2022-02-13 09:40:00 Radha Sofia [facility] BASIC METABOLIC PANEL (NA, 2022-02-13 09:40:00 Sofia Garcia [facility] K, CL, CO2, GLUCOSE, BUN, Medica l Branch CREATININE, CA) CBC WITH DIFF 2022-02-13 09:40:00 Sofia Garcia [facility] TROPONIN I 2022-02-11 23:41:00 Radha [facility] N-TERMINAL PRO-BNP 2022-02-11 23:41:00 Radha Sofia [facility] TROPONIN I 2022-02-11 23:41:00 Sofia Garcia [facility] N-TERMINAL PRO-BNP 2022-02-11 23:41:00 Sofia Garcia [facility] HB ECG ROUTINE & RHYTHM 2022-02-11 22:15:36 [facility] ([facility] 2022-02-11 21:26:50 [facility] (TTE) 2022-02-11 21:26:50 [facility] 2022-02-11 07:45:43 [facility] CT ABDOMEN PELVIS W 2022-02-11 07:45:43 Reilly Means [facility] RAPID INFLUENZA A/B 2022-02-11 06:54:00 Reilly Means [facility] RAPID INFLUENZA A/B 2022-02-11 06:54:00 Reilly Means [facility] URINALYSIS 2022-02-11 06:45:00 [facility] URINE CULTURE 2022-02-11 06:45:00 [facility] URINALYSIS 2022-02-11 06:45:00 [facility] URINE CULTURE 2022-02-11 06:45:00 [facility] HB ECG ROUTINE & RHYTHM 2022-02-11 05:22:08 Reilly Means [facility] HB ECG ROUTINE & RHYTHM 2022-02-11 05:22:08 Reilly Means [facility] BLOOD CULTURE SCREEN 2022-02-11 04:58:00 Reilly Means [facility] TROPONIN I 2022-02-11 04:58:00 [facility]illy [facility] COMP. METABOLIC PANEL 2022-02-11 04:58:00 Reilly Means [facility] ([id number]) Medical Branch CBC WITH DIFF 2022-02-11 04:58:00 [facility] PROTHROMBIN TIME / INR 2022-02-11 04:58:00 Reilly Means [facility] ACTIVATED PARTIAL THRMPLAS 2022-02-11 04:58:00 Reilly Means [facility] N-TERMINAL PRO-BNP 2022-02-11 04:58:00 Reilly Means [facility] LACTIC ACID WHOLE BLOOD 2022-02-11 04:58:00 Reilly Means [facility] COVID-19 (ID NOW RAPID 2022-02-11 04:58:00 Reilly Means [facility] TESTING) Medical Branch LAB ONLY COVID 2022-02-11 04:58:00 Reilly Means [facility] CBC WITH DIFF 2022-02-11 04:58:00 Reilly [facility] ACTIVATED PARTIAL THRMPLAS 2022-02-11 04:58:00 Reilly Means [facility] PROTHROMBIN TIME / INR 2022-02-11 04:58:00 Reilly Means [facility] COVID-19 (ID NOW RAPID 2022-02-11 04:58:00 Reilly Means [facility] TESTING) Medical Java COMP. METABOLIC PANEL 2022-02-11 04:58:00 Reilly Means [facility] ([id number]) Medical Java TROPONIN I 2022-02-11 04:58:00 [facility] N-TERMINAL PRO-BNP 2022-02-11 04:58:00 Reilly Means [facility] BLOOD CULTURE SCREEN 2022-02-11 04:58:00 Reilly Means [facility] LACTIC ACID WHOLE BLOOD 2022-02-11 04:58:00 Reilly Means [facility] LAB ONLY COVID 2022-02-11 04:58:00 Reilly Means [facility] XR CHEST 1 VW 2022-02-11 04:27:42 Miguelangel [facility] XR CHEST 1 VW 2022-02-11 04:27:42 Miguelangel [facility] HOSPITAL ADMISSION 2022-02-10 05:01:00 Doctor Unassigned, [facility] Name Medical Java HOSPITAL ADMISSION 2022-02-10 05:01:00 Doctor Unassigned, [facility] Name Medical Java ECG 12-LEAD 2021-07-14 15:14:00 Elan Lira [facility] [id number] 2021-06-17 00:00:00 RASSA [facility] GASTROINTESTINAL PANEL 2020-12-08 22:21:00 [facility]o [facility]ce [facility] XR ABDOMEN 1 VW 2020-12-08 18:06:32 Eliseo Arce spital OR [place] < 1 HOUR 2020-09-05 22:39:00 Eliseo Arce spital SURGICAL PATHOLOGY REQUEST 2020-09-05 21:54:00 Eliseo Arce [facility] XR CHEST 1 VW PORTABLE 2020-09-05 19:55:00 Eliseo Arce [facility] DISCHARGE PATIENT 2020-09-05 17:27:55 Lucas Harris [facility] UT AN ELECTIVE 2020-09-05 16:47:23 Kirit Flood [facility] ENDOTRACHEAL AIRWAY EGD, INTRAOPERATIVE 2020-09-05 16:27:00 [facility] 2020-09-05 15:04:00 Sarai Maharaj [facility] TIME (PTT) M. PROTHROMBIN TIME WITH INR 2020-09-05 15:04:00 Mindy Maharaj [facility] M. Plan of Care Planned Activity Planned Date Details Comments Source Future Scheduled 2022-09-10 SHINGLES VACCINES (1 Met [facility] Test 15:06:53 of 2) [code = SHINGLES VACCINES (1 of 2)] Future Scheduled 2022-09-10 BREAST CANCER [facility] Test 15:06:53 SCREENING [code = BREAST CANCER SCREENING] Future Scheduled 2022-09-10 COLONOSCOPY SCREENING [facility] Test 15:06:53 [code = COLONOSCOPY SCREENING] Future Scheduled 2022-09-10 HEPATITIS B VACCINES Met [facility] Test 15:06:53 (1 of 3 - Risk 3-dose series) [code = HEPATITIS B VACCINES (1 of 3 - Risk 3-dose series)] Future Scheduled 2022-09-10 COVID-19 VACCINE (3 - [facility] Test 15:06:53 Booster for Pfizer series) [code = COVID-19 VACCINE (3 - Booster for Pfizer series)] Future Scheduled 2022-09-10 65+ PNEUMOCOCCAL [facility] Test 15:06:53 VACCINE (4 - PPSV23 if available, else PCV20) [code = 65+ PNEUMOCOCCAL VACCINE (4 - PPSV23 if available, else PCV20)] Future Scheduled 2022-09-10 INFLUENZA VACCINE Method [facility] Test 15:06:53 [code = INFLUENZA VACCINE] Future Scheduled 2022-09-10 SHINGLES VACCINES (1 Met [facility] Test 15:06:53 of 2) [code = SHINGLES VACCINES (1 of 2)] Future Scheduled 2022-09-10 BREAST CANCER [facility] Test 15:06:53 SCREENING [code = BREAST CANCER SCREENING] Future Scheduled 2022-09-10 COLONOSCOPY SCREENING [facility] Test 15:06:53 [code = COLONOSCOPY SCREENING] Future Scheduled 2022-09-10 HEPATITIS B VACCINES Met [facility] Test 15:06:53 (1 of 3 - Risk 3-dose series) [code = HEPATITIS B VACCINES (1 of 3 - Risk 3-dose series)] Future Scheduled 2022-09-10 COVID-19 VACCINE (3 - Me [facility] Test 15:06:53 Booster for Pfizer series) [code = COVID-19 VACCINE (3 - Booster for Pfizer series)] Future Scheduled 2022-09-10 65+ [facility] 15:06:53 VACCINE (4 - PPSV23 if available, else PCV20) [code = 65+ PNEUMOCOCCAL VACCINE (4 - PPSV23 if available, else PCV20)] Future Scheduled 2022-09-10 INFLUENZA VACCINE Method [facility] Test 15:06:53 [code = INFLUENZA VACCINE] Future Scheduled 2022-09-10 SHINGLES VACCINES (1 Met [facility] Test 15:06:53 of 2) [code = SHINGLES VACCINES (1 of 2)] Future Scheduled 2022-09-10 BREAST CANCER [facility] Test 15:06:53 SCREENING [code = BREAST CANCER SCREENING] Future Scheduled 2022-09-10 COLONOSCOPY SCREENING [facility] Test 15:06:53 [code = COLONOSCOPY SCREENING] Future Scheduled 2022-09-10 HEPATITIS B VACCINES Met [facility] Test 15:06:53 (1 of 3 - Risk 3-dose series) [code = HEPATITIS B VACCINES (1 of 3 - Risk 3-dose series)] Future Scheduled 2022-09-10 COVID-19 VACCINE (3 - Me [facility] Test 15:06:53 Booster for Pfizer series) [code = COVID-19 VACCINE (3 - Booster for Pfizer series)] Future Scheduled 2022-09-10 65+ [facility] VACCINE (4 - PPSV23 if available, else PCV20) [code = 65+ PNEUMOCOCCAL VACCINE (4 - PPSV23 if available, else PCV20)] Future Scheduled 2022-09-10 INFLUENZA VACCINE Method [facility] Test 15:06:53 [code = INFLUENZA VACCINE] Future Scheduled 2022-09-10 SHINGLES VACCINES (1 Met [facility] Test 15:06:53 of 2) [code = SHINGLES VACCINES (1 of 2)] Future Scheduled 2022-09-10 BREAST CANCER [facility] Test 15:06:53 SCREENING [code = BREAST CANCER SCREENING] Future Scheduled 2022-09-10 COLONOSCOPY SCREENING [facility] Test 15:06:53 [code = COLONOSCOPY SCREENING] Future Scheduled 2022-09-10 HEPATITIS B VACCINES Met [facility] Test 15:06:53 (1 of 3 - Risk 3-dose series) [code = HEPATITIS B VACCINES (1 of 3 - Risk 3-dose series)] Future Scheduled 2022-09-10 COVID-19 VACCINE (3 - Me [facility] Test 15:06:53 Booster for Pfizer series) [code = COVID-19 VACCINE (3 - Booster for Pfizer series)] Future Scheduled 2022-09-10 65+ PNEUMOCOCCAL [facility] Test 15:06:53 VACCINE (4 - PPSV23 if available, else PCV20) [code = 65+ PNEUMOCOCCAL VACCINE (4 - PPSV23 if available, else PCV20)] Future Scheduled 2022-09-10 INFLUENZA VACCINE Method [facility] Test 15:06:53 [code = INFLUENZA VACCINE] Future Scheduled 2022-09-10 SHINGLES VACCINES (1 Met [facility] Test 15:06:53 of 2) [code = SHINGLES VACCINES (1 of 2)] Future Scheduled 2022-09-10 BREAST CANCER [facility] Test 15:06:53 SCREENING [code = BREAST CANCER SCREENING] Future Scheduled 2022-09-10 COLONOSCOPY SCREENING [facility] Test 15:06:53 [code = COLONOSCOPY SCREENING] Future Scheduled 2022-09-10 HEPATITIS B VACCINES Met [facility] Test 15:06:53 (1 of 3 - Risk 3-dose series) [code = HEPATITIS B VACCINES (1 of 3 - Risk 3-dose series)] Future Scheduled 2022-09-10 COVID-19 VACCINE (3 - [facility] Test 15:06:53 Booster for Pfizer series) [code = COVID-19 VACCINE (3 - Booster for Pfizer series)] Future Scheduled 2022-09-10 65+ [facility] 15:06:53 VACCINE (4 - PPSV23 if available, else PCV20) [code = 65+ PNEUMOCOCCAL VACCINE (4 - PPSV23 if available, else PCV20)] Future Scheduled 2022-09-10 INFLUENZA VACCINE Method [facility] Test 15:06:53 [code = INFLUENZA VACCINE] Future Scheduled 2022-09-10 SHINGLES VACCINES (1 Met [facility] Test 15:06:53 of 2) [code = SHINGLES VACCINES (1 of 2)] Future Scheduled 2022-09-10 BREAST CANCER [facility] Test 15:06:53 SCREENING [code = BREAST CANCER SCREENING] Future Scheduled 2022-09-10 COLONOSCOPY SCREENING [facility] Test 15:06:53 [code = COLONOSCOPY SCREENING] Future Scheduled 2022-09-10 HEPATITIS B VACCINES Met [facility] Test 15:06:53 (1 of 3 - Risk 3-dose series) [code = HEPATITIS B VACCINES (1 of 3 - Risk 3-dose series)] Future Scheduled 2022-09-10 COVID-19 VACCINE (3 - [facility] Test 15:06:53 Booster for Pfizer series) [code = COVID-19 VACCINE (3 - Booster for Pfizer series)] Future Scheduled 2022-09-10 65+ PNEUMOCOCCAL [facility] Test 15:06:53 VACCINE (4 - PPSV23 if available, else PCV20) [code = 65+ PNEUMOCOCCAL VACCINE (4 - PPSV23 if available, else PCV20)] Future Scheduled 2022-09-10 INFLUENZA VACCINE Method [facility] Test 15:06:53 [code = INFLUENZA VACCINE] Future Scheduled 2022-09-10 SHINGLES VACCINES (1 Met [facility] Test 15:06:53 of 2) [code = SHINGLES VACCINES (1 of 2)] Future Scheduled 2022-09-10 BREAST CANCER [facility] Test 15:06:53 SCREENING [code = BREAST CANCER SCREENING] Future Scheduled 2022-09-10 COLONOSCOPY SCREENING [facility] Test 15:06:53 [code = COLONOSCOPY SCREENING] Future Scheduled 2022-09-10 HEPATITIS B VACCINES Met [facility] Test 15:06:53 (1 of 3 - Risk 3-dose series) [code = HEPATITIS B VACCINES (1 of 3 - Risk 3-dose series)] Future Scheduled 2022-09-10 COVID-19 VACCINE (3 - [facility] Test 15:06:53 Booster for Pfizer series) [code = COVID-19 VACCINE (3 - Booster for Pfizer series)] Future Scheduled 2022-09-10 65+ [facility] 15:06:53 VACCINE (4 - PPSV23 if available, else PCV20) [code = 65+ PNEUMOCOCCAL VACCINE (4 - PPSV23 if available, else PCV20)] Future Scheduled 2022-09-10 INFLUENZA VACCINE Method [facility] Test 15:06:53 [code = INFLUENZA VACCINE] Future Scheduled 2022-09-10 SHINGLES VACCINES (1 Met [facility] Test 15:06:53 of 2) [code = SHINGLES VACCINES (1 of 2)] Future Scheduled 2022-09-10 BREAST CANCER [facility] Test 15:06:53 SCREENING [code = BREAST CANCER SCREENING] Future Scheduled 2022-09-10 COLONOSCOPY SCREENING [facility] Test 15:06:53 [code = COLONOSCOPY SCREENING] Future Scheduled 2022-09-10 HEPATITIS B VACCINES Met [facility] Test 15:06:53 (1 of 3 - Risk 3-dose series) [code = HEPATITIS B VACCINES (1 of 3 - Risk 3-dose series)] Future Scheduled 2022-09-10 COVID-19 VACCINE (3 - [facility] Test 15:06:53 Booster for Pfizer series) [code = COVID-19 VACCINE (3 - Booster for Pfizer series)] Future Scheduled 2022-09-10 65+ PNEUMOCOCCAL [facility] Test 15:06:53 VACCINE (4 - PPSV23 if available, else PCV20) [code = 65+ PNEUMOCOCCAL VACCINE (4 - PPSV23 if available, else PCV20)] Future Scheduled 2022-09-10 INFLUENZA VACCINE Method [facility] Test 15:06:53 [code = INFLUENZA VACCINE] Future Scheduled 2022-08-26 SHINGLES VACCINES (1 Met [facility] Test 14:43:48 of 2) [code = SHINGLES VACCINES (1 of 2)] Future Scheduled 2022-08-26 BREAST CANCER [facility] Test 14:43:48 SCREENING [code = BREAST CANCER SCREENING] Future Scheduled 2022-08-26 COLONOSCOPY SCREENING [facility] Test 14:43:48 [code = COLONOSCOPY SCREENING] Future Scheduled 2022-08-26 HEPATITIS B VACCINES Met [facility] Test 14:43:48 (1 of 3 - Risk 3-dose series) [code = HEPATITIS B VACCINES (1 of 3 - Risk 3-dose series)] Future Scheduled 2022-08-26 COVID-19 VACCINE (3 - Me [facility] Test 14:43:48 Booster for Pfizer series) [code = COVID-19 VACCINE (3 - Booster for Pfizer series)] Future Scheduled 2022-08-26 65+ PNEUMOCOCCAL [facility] Test 14:43:48 VACCINE (4 - PPSV23 if available, else PCV20) [code = 65+ PNEUMOCOCCAL VACCINE (4 - PPSV23 if available, else PCV20)] Future Scheduled 2022-08-26 INFLUENZA VACCINE Method [facility] Test 14:43:48 [code = INFLUENZA VACCINE] Future Scheduled 2022-08-07 SHINGLES VACCINES (1 Met [facility] Test 23:30:11 of 2) [code = SHINGLES VACCINES (1 of 2)] Future Scheduled 2022-08-07 BREAST CANCER [facility] Test 23:30:11 SCREENING [code = BREAST CANCER SCREENING] Future Scheduled 2022-08-07 COLONOSCOPY SCREENING [facility] Test 23:30:11 [code = COLONOSCOPY SCREENING] Future Scheduled 2022-08-07 HEPATITIS B VACCINES Met [facility] Test 23:30:11 (1 of 3 - Risk 3-dose series) [code = HEPATITIS B VACCINES (1 of 3 - Risk 3-dose series)] Future Scheduled 2022-08-07 COVID-19 VACCINE (3 - Me [facility] Test 23:30:11 Booster for Pfizer series) [code = COVID-19 VACCINE (3 - Booster for Pfizer series)] Future Scheduled 2022-08-07 65+ [facility] 23:30:11 VACCINE (4 - PPSV23 if available, else PCV20) [code = 65+ PNEUMOCOCCAL VACCINE (4 - PPSV23 if available, else PCV20)] Future Scheduled 2022-08-07 INFLUENZA VACCINE Method [facility] Test 23:30:11 [code = INFLUENZA VACCINE] Future Scheduled 2022-08-07 SHINGLES VACCINES (1 Met [facility] Test 23:30:11 of 2) [code = SHINGLES VACCINES (1 of 2)] Future Scheduled 2022-08-07 BREAST CANCER [facility] Test 23:30:11 SCREENING [code = BREAST CANCER SCREENING] Future Scheduled 2022-08-07 COLONOSCOPY SCREENING [facility] Test 23:30:11 [code = COLONOSCOPY SCREENING] Future Scheduled 2022-08-07 HEPATITIS B VACCINES Met [facility] Test 23:30:11 (1 of 3 - Risk 3-dose series) [code = HEPATITIS B VACCINES (1 of 3 - Risk 3-dose series)] Future Scheduled 2022-08-07 COVID-19 VACCINE (3 - [facility] Test 23:30:11 Booster for Pfizer series) [code = COVID-19 VACCINE (3 - Booster for Pfizer series)] Future Scheduled 2022-08-07 65+ PNEUMOCOCCAL [facility] Test 23:30:11 VACCINE (4 - PPSV23 if available, else PCV20) [code = 65+ PNEUMOCOCCAL VACCINE (4 - PPSV23 if available, else PCV20)] Future Scheduled 2022-08-07 INFLUENZA VACCINE Method [facility] Test 23:30:11 [code = INFLUENZA VACCINE] Future Scheduled 2022-08-06 SHINGLES VACCINES (1 Met [facility] Test 15:48:02 of 2) [code = SHINGLES VACCINES (1 of 2)] Future Scheduled 2022-08-06 BREAST CANCER [facility] Test 15:48:02 SCREENING [code = BREAST CANCER SCREENING] Future Scheduled 2022-08-06 COLONOSCOPY SCREENING [facility] Test 15:48:02 [code = COLONOSCOPY SCREENING] Future Scheduled 2022-08-06 HEPATITIS B VACCINES Met [facility] Test 15:48:02 (1 of 3 - Risk 3-dose series) [code = HEPATITIS B VACCINES (1 of 3 - Risk 3-dose series)] Future Scheduled 2022-08-06 COVID-19 VACCINE (3 - [facility] Test 15:48:02 Booster for Pfizer series) [code = COVID-19 VACCINE (3 - Booster for Pfizer series)] Future Scheduled 2022-08-06 65+ [facility] 15:48:02 VACCINE (4 - PPSV23 if available, else PCV20) [code = 65+ PNEUMOCOCCAL VACCINE (4 - PPSV23 if available, else PCV20)] Future Scheduled 2022-08-06 INFLUENZA VACCINE Method [facility] Test 15:48:02 [code = INFLUENZA VACCINE] Future Scheduled 2022-06-11 SHINGLES VACCINES (1 Met [facility] Test 16:10:12 of 2) [code = SHINGLES VACCINES (1 of 2)] Future Scheduled 2022-06-11 BREAST CANCER [facility] Test 16:10:12 SCREENING [code = BREAST CANCER SCREENING] Future Scheduled 2022-06-11 COLONOSCOPY SCREENING Me [facility] Test 16:10:12 [code = COLONOSCOPY SCREENING] Future Scheduled 2022-06-11 HEPATITIS B VACCINES Met [facility] Test 16:10:12 (1 of 3 - Risk 3-dose series) [code = HEPATITIS B VACCINES (1 of 3 - Risk 3-dose series)] Future Scheduled 2022-06-11 COVID-19 VACCINE (3 - [facility] Test 16:10:12 Booster for Pfizer series) [code = COVID-19 VACCINE (3 - Booster for Pfizer series)] Future Scheduled 2022-06-11 65+ [facility] 16:10:12 VACCINE (4 - PPSV23 if available, else PCV20) [code = 65+ PNEUMOCOCCAL VACCINE (4 - PPSV23 if available, else PCV20)] Future Scheduled 2022-06-11 INFLUENZA VACCINE Method [facility] Test 16:10:12 [code = INFLUENZA VACCINE] Future Scheduled 2022-06-11 SHINGLES VACCINES (1 Met [facility] Test 16:10:12 of 2) [code = SHINGLES VACCINES (1 of 2)] Future Scheduled 2022-06-11 BREAST CANCER [facility] Test 16:10:12 SCREENING [code = BREAST CANCER SCREENING] Future Scheduled 2022-06-11 COLONOSCOPY SCREENING [facility] Test 16:10:12 [code = COLONOSCOPY SCREENING] Future Scheduled 2022-06-11 HEPATITIS B VACCINES Met [facility] Test 16:10:12 (1 of 3 - Risk 3-dose series) [code = HEPATITIS B VACCINES (1 of 3 - Risk 3-dose series)] Future Scheduled 2022-06-11 COVID-19 VACCINE (3 - Me [facility] Test 16:10:12 Booster for Pfizer series) [code = COVID-19 VACCINE (3 - Booster for Pfizer series)] Future Scheduled 2022-06-11 65[facility] 16:10:12 VACCINE (4 - PPSV23 if available, else PCV20) [code = 65+ PNEUMOCOCCAL VACCINE (4 - PPSV23 if available, else PCV20)] Future Scheduled 2022-06-11 INFLUENZA VACCINE Method [facility] Test 16:10:12 [code = INFLUENZA VACCINE] Future Scheduled 2022-06-11 SHINGLES VACCINES (1 Met [facility] Test 16:10:12 of 2) [code = SHINGLES VACCINES (1 of 2)] Future Scheduled 2022-06-11 BREAST CANCER [facility] Test 16:10:12 SCREENING [code = BREAST CANCER SCREENING] Future Scheduled 2022-06-11 COLONOSCOPY SCREENING [facility] Test 16:10:12 [code = COLONOSCOPY SCREENING] Future Scheduled 2022-06-11 HEPATITIS B VACCINES Met [facility] Test 16:10:12 (1 of 3 - Risk 3-dose series) [code = HEPATITIS B VACCINES (1 of 3 - Risk 3-dose series)] Future Scheduled 2022-06-11 COVID-19 VACCINE (3 - [facility] Test 16:10:12 Booster for Pfizer series) [code = COVID-19 VACCINE (3 - Booster for Pfizer series)] Future Scheduled 2022-06-11 65+ [facility] 16:10:12 VACCINE (4 - PPSV23 if available, else PCV20) [code = 65+ PNEUMOCOCCAL VACCINE (4 - PPSV23 if available, else PCV20)] Future Scheduled 2022-06-11 INFLUENZA VACCINE Method [facility] Test 16:10:12 [code = INFLUENZA VACCINE] Future Scheduled 2022-06-11 SHINGLES VACCINES (1 Met [facility] Test 16:10:12 of 2) [code = SHINGLES VACCINES (1 of 2)] Future Scheduled 2022-06-11 BREAST CANCER [facility] Test 16:10:12 SCREENING [code = BREAST CANCER SCREENING] Future Scheduled 2022-06-11 COLONOSCOPY SCREENING [facility] Test 16:10:12 [code = COLONOSCOPY SCREENING] Future Scheduled 2022-06-11 HEPATITIS B VACCINES Met [facility] Test 16:10:12 (1 of 3 - Risk 3-dose series) [code = HEPATITIS B VACCINES (1 of 3 - Risk 3-dose series)] Future Scheduled 2022-06-11 COVID-19 VACCINE (3 - [facility] Test 16:10:12 Booster for Pfizer series) [code = COVID-19 VACCINE (3 - Booster for Pfizer series)] Future Scheduled 2022-06-11 [facility]:10[facility]12 VACCINE (4 - PPSV23 if available, else PCV20) [code = 65+ PNEUMOCOCCAL VACCINE (4 - PPSV23 if available, else PCV20)] Future Scheduled 2022-06-11 INFLUENZA VACCINE Method [facility] Test 16:10:12 [code = INFLUENZA VACCINE] Future Scheduled 2022-06-11 SHINGLES VACCINES (1 Met [facility] Test 16:10:12 of 2) [code = SHINGLES VACCINES (1 of 2)] Future Scheduled 2022-06-11 BREAST CANCER [facility] Test 16:10:12 SCREENING [code = BREAST CANCER SCREENING] Future Scheduled 2022-06-11 COLONOSCOPY SCREENING [facility] Test 16:10:12 [code = COLONOSCOPY SCREENING] Future Scheduled 2022-06-11 HEPATITIS B VACCINES Met [facility] Test 16:10:12 (1 of 3 - Risk 3-dose series) [code = HEPATITIS B VACCINES (1 of 3 - Risk 3-dose series)] Future Scheduled 2022-06-11 COVID-19 VACCINE (3 - Me [facility] Test 16:10:12 Booster for Pfizer series) [code = COVID-19 VACCINE (3 - Booster for Pfizer series)] Future Scheduled 2022-06-11 65[facility]:10[facility]12 VACCINE (4 - PPSV23 if available, else PCV20) [code = 65+ PNEUMOCOCCAL VACCINE (4 - PPSV23 if available, else PCV20)] Future Scheduled 2022-06-11 INFLUENZA VACCINE Method [facility] Test 16:10:12 [code = INFLUENZA VACCINE] Future Scheduled 2022-06-11 SHINGLES VACCINES (1 Met [facility] Test 16:10:12 of 2) [code = SHINGLES VACCINES (1 of 2)] Future Scheduled 2022-06-11 BREAST CANCER [facility] Test 16:10:12 SCREENING [code = BREAST CANCER SCREENING] Future Scheduled 2022-06-11 COLONOSCOPY SCREENING [facility] Test 16:10:12 [code = COLONOSCOPY SCREENING] Future Scheduled 2022-06-11 HEPATITIS B VACCINES Met [facility] Test 16:10:12 (1 of 3 - Risk 3-dose series) [code = HEPATITIS B VACCINES (1 of 3 - Risk 3-dose series)] Future Scheduled 2022-06-11 COVID-19 VACCINE (3 - Me [facility] Test 16:10:12 Booster for Pfizer series) [code = COVID-19 VACCINE (3 - Booster for Pfizer series)] Future Scheduled 2022-06-11 65+ [facility] 16:10:12 VACCINE (4 - PPSV23 if available, else PCV20) [code = 65+ PNEUMOCOCCAL VACCINE (4 - PPSV23 if available, else PCV20)] Future Scheduled 2022-06-11 INFLUENZA VACCINE Method [facility] Test 16:10:12 [code = INFLUENZA VACCINE] Future Scheduled 2022-06-11 SHINGLES VACCINES (1 Met [facility] Test 16:10:12 of 2) [code = SHINGLES VACCINES (1 of 2)] Future Scheduled 2022-06-11 BREAST CANCER [facility] Test 16:10:12 SCREENING [code = BREAST CANCER SCREENING] Future Scheduled 2022-06-11 COLONOSCOPY SCREENING [facility] Test 16:10:12 [code = COLONOSCOPY SCREENING] Future Scheduled 2022-06-11 HEPATITIS B VACCINES Met [facility] Test 16:10:12 (1 of 3 - Risk 3-dose series) [code = HEPATITIS B VACCINES (1 of 3 - Risk 3-dose series)] Future Scheduled 2022-06-11 COVID-19 VACCINE (3 - Me [facility] Test 16:10:12 Booster for Pfizer series) [code = COVID-19 VACCINE (3 - Booster for Pfizer series)] Future Scheduled 2022-06-11 65+ [facility] 16:10:12 VACCINE (4 - PPSV23 if available, else PCV20) [code = 65+ PNEUMOCOCCAL VACCINE (4 - PPSV23 if available, else PCV20)] Future Scheduled 2022-06-11 INFLUENZA VACCINE Method [facility] Test 16:10:12 [code = INFLUENZA VACCINE] Future Scheduled 2022-06-11 SHINGLES VACCINES (1 Met [facility] Test 16:10:12 of 2) [code = SHINGLES VACCINES (1 of 2)] Future Scheduled 2022-06-11 BREAST CANCER [facility] Test 16:10:12 SCREENING [code = BREAST CANCER SCREENING] Future Scheduled 2022-06-11 COLONOSCOPY SCREENING [facility] Test 16:10:12 [code = COLONOSCOPY SCREENING] Future Scheduled 2022-06-11 HEPATITIS B VACCINES Met [facility] Test 16:10:12 (1 of 3 - Risk 3-dose series) [code = HEPATITIS B VACCINES (1 of 3 - Risk 3-dose series)] Future Scheduled 2022-06-11 COVID-19 VACCINE (3 - Me [facility] Test 16:10:12 Booster for Pfizer series) [code = COVID-19 VACCINE (3 - Booster for Pfizer series)] Future Scheduled 2022-06-11 [facility]:10:12 VACCINE (4 - PPSV23 if available, else PCV20) [code = 65+ PNEUMOCOCCAL VACCINE (4 - PPSV23 if available, else PCV20)] Future Scheduled 2022-06-11 INFLUENZA VACCINE Method [facility] Test 16:10:12 [code = INFLUENZA VACCINE] Future Scheduled 2022-06-11 SHINGLES VACCINES (1 Met [facility] Test 16:10:12 of 2) [code = SHINGLES VACCINES (1 of 2)] Future Scheduled 2022-06-11 BREAST CANCER [facility] Test 16:10:12 SCREENING [code = BREAST CANCER SCREENING] Future Scheduled 2022-06-11 COLONOSCOPY SCREENING Me [facility] Test 16:10:12 [code = COLONOSCOPY SCREENING] Future Scheduled 2022-06-11 HEPATITIS B VACCINES Met [facility] Test 16:10:12 (1 of 3 - Risk 3-dose series) [code = HEPATITIS B VACCINES (1 of 3 - Risk 3-dose series)] Future Scheduled 2022-06-11 COVID-19 VACCINE (3 - [facility] Test 16:10:12 Booster for Pfizer series) [code = COVID-19 VACCINE (3 - Booster for Pfizer series)] Future Scheduled 2022-06-11 65[facility] 16:10:12 VACCINE (4 - PPSV23 if available, else PCV20) [code = 65+ PNEUMOCOCCAL VACCINE (4 - PPSV23 if available, else PCV20)] Future Scheduled 2022-06-11 INFLUENZA VACCINE Method [facility] Test 16:10:12 [code = INFLUENZA VACCINE] Future Scheduled 2022-05-10 SHINGLES VACCINES (1 Met [facility] Test 10:21:35 of 2) [code = SHINGLES VACCINES (1 of 2)] Future Scheduled 2022-05-10 BREAST CANCER [facility] Test 10:21:35 SCREENING [code = BREAST CANCER SCREENING] Future Scheduled 2022-05-10 COLONOSCOPY SCREENING Me [facility] Test 10:21:35 [code = COLONOSCOPY SCREENING] Future Scheduled 2022-05-10 HEPATITIS B VACCINES Met [facility] Test 10:21:35 (1 of 3 - Risk 3-dose series) [code = HEPATITIS B VACCINES (1 of 3 - Risk 3-dose series)] Future Scheduled 2022-05-10 COVID-19 VACCINE (3 - Me [facility] Test 10:21:35 Booster for Pfizer series) [code = COVID-19 VACCINE (3 - Booster for Pfizer series)] Future Scheduled 2022-05-10 65[facility] 10:21:35 VACCINE (4 - PPSV23 if available, else PCV20) [code = 65+ PNEUMOCOCCAL VACCINE (4 - PPSV23 if available, else PCV20)] Future Scheduled 2022-05-10 INFLUENZA VACCINE Method [facility] Test 10:21:35 [code = INFLUENZA VACCINE] Future Scheduled 2022-05-10 SHINGLES VACCINES (1 Met [facility] Test 10:21:35 of 2) [code = SHINGLES VACCINES (1 of 2)] Future Scheduled 2022-05-10 BREAST CANCER [facility] Test 10:21:35 SCREENING [code = BREAST CANCER SCREENING] Future Scheduled 2022-05-10 COLONOSCOPY SCREENING [facility] Test 10:21:35 [code = COLONOSCOPY SCREENING] Future Scheduled 2022-05-10 HEPATITIS B VACCINES Met [facility] Test 10:21:35 (1 of 3 - Risk 3-dose series) [code = HEPATITIS B VACCINES (1 of 3 - Risk 3-dose series)] Future Scheduled 2022-05-10 COVID-19 VACCINE (3 - [facility] Test 10:21:35 Booster for Pfizer series) [code = COVID-19 VACCINE (3 - Booster for Pfizer series)] Future Scheduled 2022-05-10 65[facility] 10:21:35 VACCINE (4 - PPSV23 if available, else PCV20) [code = 65+ PNEUMOCOCCAL VACCINE (4 - PPSV23 if available, else PCV20)] Future Scheduled 2022-05-10 INFLUENZA VACCINE Method [facility] Test 10:21:35 [code = INFLUENZA VACCINE] Future Scheduled 2022-05-06 SHINGLES VACCINES ([address] [facility] Test 14:03:13 of 2) [code = SHINGLES VACCINES (1 of 2)] Future Scheduled 2022-05-06 BREAST CANCER [facility] Test 14:03:13 SCREENING [code = BREAST CANCER SCREENING] Future Scheduled 2022-05-06 COLONOSCOPY SCREENING [facility] Test 14:03:13 [code = COLONOSCOPY SCREENING] Future Scheduled 2022-05-06 HEPATITIS B VACCINES Met [facility] Test 14:03:13 (1 of 3 - Risk 3-dose series) [code = HEPATITIS B VACCINES (1 of 3 - Risk 3-dose series)] Future Scheduled 2022-05-06 COVID-19 VACCINE (3 - [facility] Test 14:03:13 Booster for Pfizer series) [code = COVID-19 VACCINE (3 - Booster for Pfizer series)] Future Scheduled 2022-05-06 65+ PNEUMOCOCCAL [facility] Test 14:03:13 VACCINE (4 - PPSV23 if available, else PCV20) [code = 65+ PNEUMOCOCCAL VACCINE (4 - PPSV23 if available, else PCV20)] Future Scheduled 2022-05-06 INFLUENZA VACCINE Method [facility] Test 14:03:13 [code = INFLUENZA VACCINE] Future Scheduled 2022-04-30 SHINGLES VACCINES (1 Met [facility] Test 01:07:32 of 2) [code = SHINGLES VACCINES (1 of 2)] Future Scheduled 2022-04-30 BREAST CANCER [facility] Test 01:07:32 SCREENING [code = BREAST CANCER SCREENING] Future Scheduled 2022-04-30 COLONOSCOPY SCREENING [facility] Test 01:07:32 [code = COLONOSCOPY SCREENING] Future Scheduled 2022-04-30 HEPATITIS B VACCINES Met [facility] Test 01:07:32 (1 of 3 - Risk 3-dose series) [code = HEPATITIS B VACCINES (1 of 3 - Risk 3-dose series)] Future Scheduled 2022-04-30 COVID-19 VACCINE (3 - [facility] Test 01:07:32 Booster for Pfizer series) [code = COVID-19 VACCINE (3 - Booster for Pfizer series)] Future Scheduled 2022-04-30 65+ PNEUMOCOCCAL [facility] Test 01:07:32 VACCINE (4 - PPSV23 if available, else PCV20) [code = 65+ PNEUMOCOCCAL VACCINE (4 - PPSV23 if available, else PCV20)] Future Scheduled 2022-04-30 INFLUENZA VACCINE Method [facility] Test 01:07:32 [code = INFLUENZA VACCINE] Future Scheduled 2022-04-30 SHINGLES VACCINES (1 Met [facility] Test 01:07:32 of 2) [code = SHINGLES VACCINES (1 of 2)] Future Scheduled 2022-04-30 BREAST CANCER [facility] Test 01:07:32 SCREENING [code = BREAST CANCER SCREENING] Future Scheduled 2022-04-30 COLONOSCOPY SCREENING [facility] Test 01:07:32 [code = COLONOSCOPY SCREENING] Future Scheduled 2022-04-30 HEPATITIS B VACCINES Met [facility] Test 01:07:32 (1 of 3 - Risk 3-dose series) [code = HEPATITIS B VACCINES (1 of 3 - Risk 3-dose series)] Future Scheduled 2022-04-30 COVID-19 VACCINE (3 - [facility] Test 01:07:32 Booster for Pfizer series) [code = COVID-19 VACCINE (3 - Booster for Pfizer series)] Future Scheduled 2022-04-30 65+ PNEUMOCOCCAL [facility] Test 01:07:32 VACCINE (4 - PPSV23 if available, else PCV20) [code = 65+ PNEUMOCOCCAL VACCINE (4 - PPSV23 if available, else PCV20)] Future Scheduled 2022-04-30 INFLUENZA VACCINE Method [facility] Test 01:07:32 [code = INFLUENZA VACCINE] Future Scheduled 2022-04-30 SHINGLES VACCINES (1 Met [facility] Test 01:07:32 of 2) [code = SHINGLES VACCINES (1 of 2)] Future Scheduled 2022-04-30 BREAST CANCER [facility] Test 01:07:32 SCREENING [code = BREAST CANCER SCREENING] Future Scheduled 2022-04-30 COLONOSCOPY SCREENING [facility] Test 01:07:32 [code = COLONOSCOPY SCREENING] Future Scheduled 2022-04-30 HEPATITIS B VACCINES Met [facility] Test 01:07:32 (1 of 3 - Risk 3-dose series) [code = HEPATITIS B VACCINES (1 of 3 - Risk 3-dose series)] Future Scheduled 2022-04-30 COVID-19 VACCINE (3 - [facility] Test 01:07:32 Booster for Pfizer series) [code = COVID-19 VACCINE (3 - Booster for Pfizer series)] Future Scheduled 2022-04-30 65+ PNEUMOCOCCAL [facility] Test 01:07:32 VACCINE (4 - PPSV23 if available, else PCV20) [code = 65+ PNEUMOCOCCAL VACCINE (4 - PPSV23 if available, else PCV20)] Future Scheduled 2022-04-30 INFLUENZA VACCINE Method [facility] Test 01:07:32 [code = INFLUENZA VACCINE] Future Scheduled 2022-04-25 SHINGLES VACCINES (1 Met [facility] Test 01:45:02 of 2) [code = SHINGLES VACCINES (1 of 2)] Future Scheduled 2022-04-25 BREAST CANCER [facility] Test 01:45:02 SCREENING [code = BREAST CANCER SCREENING] Future Scheduled 2022-04-25 COLONOSCOPY SCREENING [facility] Test 01:45:02 [code = COLONOSCOPY SCREENING] Future Scheduled 2022-04-25 HEPATITIS B VACCINES Met [facility] Test 01:45:02 (1 of 3 - Risk 3-dose series) [code = HEPATITIS B VACCINES (1 of 3 - Risk 3-dose series)] Future Scheduled 2022-04-25 COVID-19 VACCINE (3 - [facility] Test 01:45:02 Booster for Pfizer series) [code = COVID-19 VACCINE (3 - Booster for Pfizer series)] Future Scheduled 2022-04-25 65+ PNEUMOCOCCAL [facility] Test 01:45:02 VACCINE (4 - PPSV23 if available, else PCV20) [code = 65+ PNEUMOCOCCAL VACCINE (4 - PPSV23 if available, else PCV20)] Future Scheduled 2022-04-25 INFLUENZA VACCINE Method [facility] Test 01:45:02 [code = INFLUENZA VACCINE] Future Scheduled 2022-03-25 SHINGLES VACCINES (1 Met [facility] Test 14:48:42 of 2) [code = SHINGLES VACCINES (1 of 2)] Future Scheduled 2022-03-25 BREAST CANCER [facility] Test 14:48:42 SCREENING [code = BREAST CANCER SCREENING] Future Scheduled 2022-03-25 COLONOSCOPY SCREENING [facility] Test 14:48:42 [code = COLONOSCOPY SCREENING] Future Scheduled 2022-03-25 HEPATITIS B VACCINES Met [facility] Test 14:48:42 (1 of 3 - Risk 3-dose series) [code = HEPATITIS B VACCINES (1 of 3 - Risk 3-dose series)] Future Scheduled 2022-03-25 COVID-19 VACCINE (3 - Me [facility] Test 14:48:42 Booster for Pfizer series) [code = COVID-19 VACCINE (3 - Booster for Pfizer series)] Future Scheduled 2022-03-25 65+ [facility] 14:48:42 VACCINE (4 - PPSV23 if available, else PCV20) [code = 65+ PNEUMOCOCCAL VACCINE (4 - PPSV23 if available, else PCV20)] Future Scheduled 2022-03-25 INFLUENZA VACCINE Method [facility] Test 14:48:42 [code = INFLUENZA VACCINE] Future Scheduled 2022-03-25 SHINGLES VACCINES (1 Met [facility] Test 14:48:42 of 2) [code = SHINGLES VACCINES (1 of 2)] Future Scheduled 2022-03-25 BREAST CANCER [facility] Test 14:48:42 SCREENING [code = BREAST CANCER SCREENING] Future Scheduled 2022-03-25 COLONOSCOPY SCREENING [facility] Test 14:48:42 [code = COLONOSCOPY SCREENING] Future Scheduled 2022-03-25 HEPATITIS B VACCINES Met [facility] Test 14:48:42 (1 of 3 - Risk 3-dose series) [code = HEPATITIS B VACCINES (1 of 3 - Risk 3-dose series)] Future Scheduled 2022-03-25 COVID-19 VACCINE (3 - Me [facility] Test 14:48:42 Booster for Pfizer series) [code = COVID-19 VACCINE (3 - Booster for Pfizer series)] Future Scheduled 2022-03-25 65+ [facility] 14:48:42 VACCINE (4 - PPSV23 if available, else PCV20) [code = 65+ PNEUMOCOCCAL VACCINE (4 - PPSV23 if available, else PCV20)] Future Scheduled 2022-03-25 INFLUENZA VACCINE Method [facility] Test 14:48:42 [code = INFLUENZA VACCINE] Future Scheduled 2022-03-25 SHINGLES VACCINES (1 Met [facility] Test 14:48:42 of 2) [code = SHINGLES VACCINES (1 of 2)] Future Scheduled 2022-03-25 BREAST CANCER [facility] Test 14:48:42 SCREENING [code = BREAST CANCER SCREENING] Future Scheduled 2022-03-25 COLONOSCOPY SCREENING [facility] Test 14:48:42 [code = COLONOSCOPY SCREENING] Future Scheduled 2022-03-25 HEPATITIS B VACCINES Met [facility] Test 14:48:42 (1 of 3 - Risk 3-dose series) [code = HEPATITIS B VACCINES (1 of 3 - Risk 3-dose series)] Future Scheduled 2022-03-25 COVID-19 VACCINE (3 - Me [facility] Test 14:48:42 Booster for Pfizer series) [code = COVID-19 VACCINE (3 - Booster for Pfizer series)] Future Scheduled 2022-03-25 65+ [facility] 14:48:42 VACCINE (4 - PPSV23 if available, else PCV20) [code = 65+ PNEUMOCOCCAL VACCINE (4 - PPSV23 if available, else PCV20)] Future Scheduled 2022-03-25 INFLUENZA VACCINE Method [facility] Test 14:48:42 [code = INFLUENZA VACCINE] Future Scheduled 2022-03-25 SHINGLES VACCINES (1 Met [facility] Test 14:48:42 of 2) [code = SHINGLES VACCINES (1 of 2)] Future Scheduled 2022-03-25 BREAST CANCER [facility] Test 14:48:42 SCREENING [code = BREAST CANCER SCREENING] Future Scheduled 2022-03-25 COLONOSCOPY SCREENING [facility] Test 14:48:42 [code = COLONOSCOPY SCREENING] Future Scheduled 2022-03-25 HEPATITIS B VACCINES Met [facility] Test 14:48:42 (1 of 3 - Risk 3-dose series) [code = HEPATITIS B VACCINES (1 of 3 - Risk 3-dose series)] Future Scheduled 2022-03-25 COVID-19 VACCINE (3 - [facility] Test 14:48:42 Booster for Pfizer series) [code = COVID-19 VACCINE (3 - Booster for Pfizer series)] Future Scheduled 2022-03-25 65+ [facility] 14:48:42 VACCINE (4 - PPSV23 if available, else PCV20) [code = 65+ PNEUMOCOCCAL VACCINE (4 - PPSV23 if available, else PCV20)] Future Scheduled 2022-03-25 INFLUENZA VACCINE Method [facility] Test 14:48:42 [code = INFLUENZA VACCINE] Future Scheduled 2022-03-25 SHINGLES VACCINES (1 Met [facility] Test 14:48:42 of 2) [code = SHINGLES VACCINES (1 of 2)] Future Scheduled 2022-03-25 BREAST CANCER [facility] Test 14:48:42 SCREENING [code = BREAST CANCER SCREENING] Future Scheduled 2022-03-25 COLONOSCOPY SCREENING Me [facility] Test 14:48:42 [code = COLONOSCOPY SCREENING] Future Scheduled 2022-03-25 HEPATITIS B VACCINES Met [facility] Test 14:48:42 (1 of 3 - Risk 3-dose series) [code = HEPATITIS B VACCINES (1 of 3 - Risk 3-dose series)] Future Scheduled 2022-03-25 COVID-19 VACCINE (3 - [facility] Test 14:48:42 Booster for Pfizer series) [code = COVID-19 VACCINE (3 - Booster for Pfizer series)] Future Scheduled 2022-03-25 65+ [facility] 14:48:42 VACCINE (4 - PPSV23 if available, else PCV20) [code = 65+ PNEUMOCOCCAL VACCINE (4 - PPSV23 if available, else PCV20)] Future Scheduled 2022-03-25 INFLUENZA VACCINE Method [facility] Test 14:48:42 [code = INFLUENZA VACCINE] Future Scheduled 2022-03-25 SHINGLES VACCINES (1 Met [facility] Test 14:48:42 of 2) [code = SHINGLES VACCINES (1 of 2)] Future Scheduled 2022-03-25 BREAST CANCER [facility] Test 14:48:42 SCREENING [code = BREAST CANCER SCREENING] Future Scheduled 2022-03-25 COLONOSCOPY SCREENING [facility] Test 14:48:42 [code = COLONOSCOPY SCREENING] Future Scheduled 2022-03-25 HEPATITIS B VACCINES Met [facility] Test 14:48:42 (1 of 3 - Risk 3-dose series) [code = HEPATITIS B VACCINES (1 of 3 - Risk 3-dose series)] Future Scheduled 2022-03-25 COVID-19 VACCINE (3 - Me [facility] Test 14:48:42 Booster for Pfizer series) [code = COVID-19 VACCINE (3 - Booster for Pfizer series)] Future Scheduled 2022-03-25 65+ [facility] 14:48:42 VACCINE (4 - PPSV23 if available, else PCV20) [code = 65+ PNEUMOCOCCAL VACCINE (4 - PPSV23 if available, else PCV20)] Future Scheduled 2022-03-25 INFLUENZA VACCINE Method [facility] Test 14:48:42 [code = INFLUENZA VACCINE] Future Scheduled 2022-03-25 SHINGLES VACCINES (1 Met [facility] Test 14:48:42 of 2) [code = SHINGLES VACCINES (1 of 2)] Future Scheduled 2022-03-25 BREAST CANCER [facility] Test 14:48:42 SCREENING [code = BREAST CANCER SCREENING] Future Scheduled 2022-03-25 COLONOSCOPY SCREENING [facility] Test 14:48:42 [code = COLONOSCOPY SCREENING] Future Scheduled 2022-03-25 HEPATITIS B VACCINES Met [facility] Test 14:48:42 (1 of 3 - Risk 3-dose series) [code = HEPATITIS B VACCINES (1 of 3 - Risk 3-dose series)] Future Scheduled 2022-03-25 COVID-19 VACCINE (3 - Me [facility] Test 14:48:42 Booster for Pfizer series) [code = COVID-19 VACCINE (3 - Booster for Pfizer series)] Future Scheduled 2022-03-25 65+ [facility] 14:48:42 VACCINE (4 - PPSV23 if available, else PCV20) [code = 65+ PNEUMOCOCCAL VACCINE (4 - PPSV23 if available, else PCV20)] Future Scheduled 2022-03-25 INFLUENZA VACCINE Method [facility] Test 14:48:42 [code = INFLUENZA VACCINE] Future Scheduled 2022-03-25 SHINGLES VACCINES (1 Met [facility] Test 14:48:42 of 2) [code = SHINGLES VACCINES (1 of 2)] Future Scheduled 2022-03-25 BREAST CANCER [facility] Test 14:48:42 SCREENING [code = BREAST CANCER SCREENING] Future Scheduled 2022-03-25 COLONOSCOPY SCREENING [facility] Test 14:48:42 [code = COLONOSCOPY SCREENING] Future Scheduled 2022-03-25 HEPATITIS B VACCINES Met [facility] Test 14:48:42 (1 of 3 - Risk 3-dose series) [code = HEPATITIS B VACCINES (1 of 3 - Risk 3-dose series)] Future Scheduled 2022-03-25 COVID-19 VACCINE (3 - [facility] Test 14:48:42 Booster for Pfizer series) [code = COVID-19 VACCINE (3 - Booster for Pfizer series)] Future Scheduled 2022-03-25 65[facility] 14:48:42 VACCINE (4 - PPSV23 if available, else PCV20) [code = 65+ PNEUMOCOCCAL VACCINE (4 - PPSV23 if available, else PCV20)] Future Scheduled 2022-03-25 INFLUENZA VACCINE Method [facility] Test 14:48:42 [code = INFLUENZA VACCINE] Future Scheduled 2022-03-25 SHINGLES VACCINES (1 Met [facility] Test 14:48:42 of 2) [code = SHINGLES VACCINES (1 of 2)] Future Scheduled 2022-03-25 BREAST CANCER [facility] Test 14:48:42 SCREENING [code = BREAST CANCER SCREENING] Future Scheduled 2022-03-25 COLONOSCOPY SCREENING [facility] Test 14:48:42 [code = COLONOSCOPY SCREENING] Future Scheduled 2022-03-25 HEPATITIS B VACCINES Met [facility] Test 14:48:42 (1 of 3 - Risk 3-dose series) [code = HEPATITIS B VACCINES (1 of 3 - Risk 3-dose series)] Future Scheduled 2022-03-25 COVID-19 VACCINE (3 - [facility] Test 14:48:42 Booster for Pfizer series) [code = COVID-19 VACCINE (3 - Booster for Pfizer series)] Future Scheduled 2022-03-25 65[facility] 14:48:42 VACCINE (4 - PPSV23 if available, else PCV20) [code = 65+ PNEUMOCOCCAL VACCINE (4 - PPSV23 if available, else PCV20)] Future Scheduled 2022-03-25 INFLUENZA VACCINE Method [facility] Test 14:48:42 [code = INFLUENZA VACCINE] Future Scheduled 2022-03-04 SHINGLES VACCINES (1 Met [facility] Test 14:03:57 of 2) [code = SHINGLES VACCINES (1 of 2)] Future Scheduled 2022-03-04 BREAST CANCER [facility] Test 14:03:57 SCREENING [code = BREAST CANCER SCREENING] Future Scheduled 2022-03-04 COLONOSCOPY SCREENING [facility] Test 14:03:57 [code = COLONOSCOPY SCREENING] Future Scheduled 2022-03-04 HEPATITIS B VACCINES Met [facility] Test 14:03:57 (1 of 3 - Risk 3-dose series) [code = HEPATITIS B VACCINES (1 of 3 - Risk 3-dose series)] Future Scheduled 2022-03-04 COVID-19 VACCINE (3 - [facility] Test 14:03:57 Booster for Pfizer series) [code = COVID-19 VACCINE (3 - Booster for Pfizer series)] Future Scheduled 2022-03-04 65+ PNEUMOCOCCAL [facility] Test 14:03:57 VACCINE (4 - PPSV23 if available, else PCV20) [code = 65+ PNEUMOCOCCAL VACCINE (4 - PPSV23 if available, else PCV20)] Future Scheduled 2022-03-04 INFLUENZA VACCINE Method [facility] Test 14:03:57 [code = INFLUENZA VACCINE] Future Scheduled 2022-03-04 SHINGLES VACCINES (1 Met [facility] Test 14:03:57 of 2) [code = SHINGLES VACCINES (1 of 2)] Future Scheduled 2022-03-04 BREAST CANCER [facility] Test 14:03:57 SCREENING [code = BREAST CANCER SCREENING] Future Scheduled 2022-03-04 COLONOSCOPY SCREENING [facility] Test 14:03:57 [code = COLONOSCOPY SCREENING] Future Scheduled 2022-03-04 HEPATITIS B VACCINES Met [facility] Test 14:03:57 (1 of 3 - Risk 3-dose series) [code = HEPATITIS B VACCINES (1 of 3 - Risk 3-dose series)] Future Scheduled 2022-03-04 COVID-19 VACCINE (3 - Me [facility] Test 14:03:57 Booster for Pfizer series) [code = COVID-19 VACCINE (3 - Booster for Pfizer series)] Future Scheduled 2022-03-04 65+ PNEUMOCOCCAL [facility] Test 14:03:57 VACCINE (4 - PPSV23 if available, else PCV20) [code = 65+ PNEUMOCOCCAL VACCINE (4 - PPSV23 if available, else PCV20)] Future Scheduled 2022-03-04 INFLUENZA VACCINE Method [facility] Test 14:03:57 [code = INFLUENZA VACCINE] Future Scheduled 2022-03-04 SHINGLES VACCINES (1 Met [facility] Test 14:03:57 of 2) [code = SHINGLES VACCINES (1 of 2)] Future Scheduled 2022-03-04 BREAST CANCER [facility] Test 14:03:57 SCREENING [code = BREAST CANCER SCREENING] Future Scheduled 2022-03-04 COLONOSCOPY SCREENING [facility] Test 14:03:57 [code = COLONOSCOPY SCREENING] Future Scheduled 2022-03-04 HEPATITIS B VACCINES Met [facility] Test 14:03:57 (1 of 3 - Risk 3-dose series) [code = HEPATITIS B VACCINES (1 of 3 - Risk 3-dose series)] Future Scheduled 2022-03-04 COVID-19 VACCINE (3 - [facility] Test 14:03:57 Booster for Pfizer series) [code = COVID-19 VACCINE (3 - Booster for Pfizer series)] Future Scheduled 2022-03-04 65+ PNEUMOCOCCAL [facility] Test 14:03:57 VACCINE (4 - PPSV23 if available, else PCV20) [code = 65+ PNEUMOCOCCAL VACCINE (4 - PPSV23 if available, else PCV20)] Future Scheduled 2022-03-04 INFLUENZA VACCINE Method [facility] Test 14:03:57 [code = INFLUENZA VACCINE] Future Scheduled 2022-03-04 SHINGLES VACCINES (1 Met [facility] Test 14:03:57 of 2) [code = SHINGLES VACCINES (1 of 2)] Future Scheduled 2022-03-04 BREAST CANCER [facility] Test 14:03:57 SCREENING [code = BREAST CANCER SCREENING] Future Scheduled 2022-03-04 COLONOSCOPY SCREENING [facility] Test 14:03:57 [code = COLONOSCOPY SCREENING] Future Scheduled 2022-03-04 HEPATITIS B VACCINES Met [facility] Test 14:03:57 (1 of 3 - Risk 3-dose series) [code = HEPATITIS B VACCINES (1 of 3 - Risk 3-dose series)] Future Scheduled 2022-03-04 COVID-19 VACCINE (3 - [facility] Test 14:03:57 Booster for Pfizer series) [code = COVID-19 VACCINE (3 - Booster for Pfizer series)] Future Scheduled 2022-03-04 65+ PNEUMOCOCCAL [facility] Test 14:03:57 VACCINE (4 - PPSV23 if available, else PCV20) [code = 65+ PNEUMOCOCCAL VACCINE (4 - PPSV23 if available, else PCV20)] Future Scheduled 2022-03-04 INFLUENZA VACCINE Method [facility] Test 14:03:57 [code = INFLUENZA VACCINE] Future Scheduled 2022-02-11 SHINGLES VACCINES (1 Met [facility] Test 13:39:12 of 2) [code = SHINGLES VACCINES (1 of 2)] Future Scheduled 2022-02-11 BREAST CANCER [facility] Test 13:39:12 SCREENING [code = BREAST CANCER SCREENING] Future Scheduled 2022-02-11 COLONOSCOPY SCREENING [facility] Test 13:39:12 [code = COLONOSCOPY SCREENING] Future Scheduled 2022-02-11 HEPATITIS B VACCINES Met [facility] Test 13:39:12 (1 of 3 - Risk 3-dose series) [code = HEPATITIS B VACCINES (1 of 3 - Risk 3-dose series)] Future Scheduled 2022-02-11 COVID-19 VACCINE (3 - Me [facility] Test 13:39:12 Booster for Pfizer series) [code = COVID-19 VACCINE (3 - Booster for Pfizer series)] Future Scheduled 2022-02-11 65+ [facility] 13:39:12 VACCINE (4 - PPSV23 or PCV20) [code = 65+ PNEUMOCOCCAL VACCINE (4 - PPSV23 or PCV20)] Future Scheduled 2022-02-11 INFLUENZA VACCINE Method [facility] Test 13:39:12 [code = INFLUENZA VACCINE] Future Scheduled 2022-01-29 SHINGLES VACCINES (1 Met [facility] Test 14:07:20 of 2) [code = SHINGLES VACCINES (1 of 2)] Future Scheduled 2022-01-29 BREAST CANCER [facility] Test 14:07:20 SCREENING [code = BREAST CANCER SCREENING] Future Scheduled 2022-01-29 COLONOSCOPY SCREENING [facility] Test 14:07:20 [code = COLONOSCOPY SCREENING] Future Scheduled 2022-01-29 HEPATITIS B VACCINES Met [facility] Test 14:07:20 (1 of 3 - Risk 3-dose series) [code = HEPATITIS B VACCINES (1 of 3 - Risk 3-dose series)] Future Scheduled 2022-01-29 COVID-19 VACCINE (3 - [facility] Test 14:07:20 Booster for Pfizer series) [code = COVID-19 VACCINE (3 - Booster for Pfizer series)] Future Scheduled 2022-01-29 65+ [facility] 14:07:20 VACCINE (4 - PPSV23 or PCV20) [code = 65+ PNEUMOCOCCAL VACCINE (4 - PPSV23 or PCV20)] Future Scheduled 2022-01-29 INFLUENZA VACCINE Method [facility] Test 14:07:20 [code = INFLUENZA VACCINE] Future Scheduled 2022-01-29 SHINGLES VACCINES (1 Met [facility] Test 14:07:20 of 2) [code = SHINGLES VACCINES (1 of 2)] Future Scheduled 2022-01-29 BREAST CANCER [facility] Test 14:07:20 SCREENING [code = BREAST CANCER SCREENING] Future Scheduled 2022-01-29 COLONOSCOPY SCREENING [facility] Test 14:07:20 [code = COLONOSCOPY SCREENING] Future Scheduled 2022-01-29 HEPATITIS B VACCINES Met [facility] Test 14:07:20 (1 of 3 - Risk 3-dose series) [code = HEPATITIS B VACCINES (1 of 3 - Risk 3-dose series)] Future Scheduled 2022-01-29 COVID-19 VACCINE (3 - [facility] Test 14:07:20 Booster for Pfizer series) [code = COVID-19 VACCINE (3 - Booster for Pfizer series)] Future Scheduled 2022-01-29 65+ PNEUMOCOCCAL [facility] Test 14:07:20 VACCINE (4 - PPSV23 or PCV20) [code = 65+ PNEUMOCOCCAL VACCINE (4 - PPSV23 or PCV20)] Future Scheduled 2022-01-29 INFLUENZA VACCINE Method [facility] Test 14:07:20 [code = INFLUENZA VACCINE] Future Scheduled 2022-01-29 SHINGLES VACCINES (1 Met [facility] Test 14:07:20 of 2) [code = SHINGLES VACCINES (1 of 2)] Future Scheduled 2022-01-29 BREAST CANCER [facility] Test 14:07:20 SCREENING [code = BREAST CANCER SCREENING] Future Scheduled 2022-01-29 COLONOSCOPY SCREENING [facility] Test 14:07:20 [code = COLONOSCOPY SCREENING] Future Scheduled 2022-01-29 HEPATITIS B VACCINES Met [facility] Test 14:07:20 (1 of 3 - Risk 3-dose series) [code = HEPATITIS B VACCINES (1 of 3 - Risk 3-dose series)] Future Scheduled 2022-01-29 COVID-19 VACCINE (3 - [facility] Test 14:07:20 Booster for Pfizer series) [code = COVID-19 VACCINE (3 - Booster for Pfizer series)] Future Scheduled 2022-01-29 65+ [facility] 14:07:20 VACCINE (4 - PPSV23 or PCV20) [code = 65+ PNEUMOCOCCAL VACCINE (4 - PPSV23 or PCV20)] Future Scheduled 2022-01-29 INFLUENZA VACCINE Method [facility] Test 14:07:20 [code = INFLUENZA VACCINE] Future Scheduled 2022-01-29 SHINGLES VACCINES (1 Met [facility] Test 14:07:20 of 2) [code = SHINGLES VACCINES (1 of 2)] Future Scheduled 2022-01-29 BREAST CANCER [facility] Test 14:07:20 SCREENING [code = BREAST CANCER SCREENING] Future Scheduled 2022-01-29 COLONOSCOPY SCREENING [facility] Test 14:07:20 [code = COLONOSCOPY SCREENING] Future Scheduled 2022-01-29 HEPATITIS B VACCINES Met [facility] Test 14:07:20 (1 of 3 - Risk 3-dose series) [code = HEPATITIS B VACCINES (1 of 3 - Risk 3-dose series)] Future Scheduled 2022-01-29 COVID-19 VACCINE (3 - [facility] Test 14:07:20 Booster for Pfizer series) [code = COVID-19 VACCINE (3 - Booster for Pfizer series)] Future Scheduled 2022-01-29 65+ [facility] 14:07:20 VACCINE (4 - PPSV23 or PCV20) [code = 65+ PNEUMOCOCCAL VACCINE (4 - PPSV23 or PCV20)] Future Scheduled 2022-01-29 INFLUENZA VACCINE Method [facility] Test 14:07:20 [code = INFLUENZA VACCINE] Future Scheduled 2022-01-20 SHINGLES VACCINES (1 Met [facility] Test 06:12:34 of 2) [code = SHINGLES VACCINES (1 of 2)] Future Scheduled 2022-01-20 Screening for [facility] Test 06:12:34 malignant neoplasm of cervix (procedure) [code = [id number]] Future Scheduled 2022-01-20 BREAST CANCER [facility] Test 06:12:34 SCREENING [code = BREAST CANCER SCREENING] Future Scheduled 2022-01-20 COLONOSCOPY SCREENING [facility] Test 06:12:34 [code = COLONOSCOPY SCREENING] Future Scheduled 2022-01-20 HEPATITIS B VACCINES Met [facility] Test 06:12:34 (1 of 3 - Risk 3-dose series) [code = HEPATITIS B VACCINES (1 of 3 - Risk 3-dose series)] Future Scheduled 2022-01-20 COVID-19 VACCINE (3 - [facility] Test 06:12:34 Booster for Pfizer series) [code = COVID-19 VACCINE (3 - Booster for Pfizer series)] Future Scheduled 2022-01-20 65+ [facility] 06:12:34 VACCINE (4 - PPSV23 or PCV20) [code = 65+ PNEUMOCOCCAL VACCINE (4 - PPSV23 or PCV20)] Future Scheduled 2022-01-20 INFLUENZA VACCINE Method [facility] Test 06:12:34 [code = INFLUENZA VACCINE] Future Scheduled 2022-01-16 SHINGLES VACCINES (1 Met [facility] Test 12:09:25 of 2) [code = SHINGLES VACCINES (1 of 2)] Future Scheduled 2022-01-16 Screening for [facility] Test 12:09:25 malignant neoplasm of cervix (procedure) [code = [id number]] Future Scheduled 2022-01-16 BREAST CANCER [facility] Test 12:09:25 SCREENING [code = BREAST CANCER SCREENING] Future Scheduled 2022-01-16 COLONOSCOPY SCREENING [facility] Test 12:09:25 [code = COLONOSCOPY SCREENING] Future Scheduled 2022-01-16 HEPATITIS B VACCINES Met [facility] Test 12:09:25 (1 of 3 - Risk 3-dose series) [code = HEPATITIS B VACCINES (1 of 3 - Risk 3-dose series)] Future Scheduled 2022-01-16 COVID-19 VACCINE (3 - [facility] Test 12:09:25 Booster for Pfizer series) [code = COVID-19 VACCINE (3 - Booster for Pfizer series)] Future Scheduled 2022-01-16 65+ PNEUMOCOCCAL [facility] Test 12:09:25 VACCINE (4 - PPSV23 or PCV20) [code = 65+ PNEUMOCOCCAL VACCINE (4 - PPSV23 or PCV20)] Future Scheduled 2022-01-16 INFLUENZA VACCINE Method [facility] Test 12:09:25 [code = INFLUENZA VACCINE] Future Scheduled 2022-01-14 SHINGLES VACCINES (1 Met [facility] Test 04:11:46 of 2) [code = SHINGLES VACCINES (1 of 2)] Future Scheduled 2022-01-14 Screening for [facility] Test 04:11:46 malignant neoplasm of cervix (procedure) [code = [id number]] Future Scheduled 2022-01-14 BREAST CANCER [facility] Test 04:11:46 SCREENING [code = BREAST CANCER SCREENING] Future Scheduled 2022-01-14 COLONOSCOPY SCREENING [facility] Test 04:11:46 [code = COLONOSCOPY SCREENING] Future Scheduled 2022-01-14 HEPATITIS B VACCINES Met [facility] Test 04:11:46 (1 of 3 - Risk 3-dose series) [code = HEPATITIS B VACCINES (1 of 3 - Risk 3-dose series)] Future Scheduled 2022-01-14 COVID-19 VACCINE (3 - [facility] Test 04:11:46 Booster for Pfizer series) [code = COVID-19 VACCINE (3 - Booster for Pfizer series)] Future Scheduled 2022-01-14 65+ PNEUMOCOCCAL [facility] Test 04:11:46 VACCINE (4 - PPSV23 or PCV20) [code = 65+ PNEUMOCOCCAL VACCINE (4 - PPSV23 or PCV20)] Future Scheduled 2022-01-14 INFLUENZA VACCINE Method [facility] Test 04:11:46 [code = INFLUENZA VACCINE] Future Scheduled 2021-08-26 Screening for [facility] Test 13:02:23 malignant neoplasm of cervix (procedure) [code = [id number]] Future Scheduled 2021-08-26 BREAST CANCER [facility] Test 13:02:23 SCREENING [code = BREAST CANCER SCREENING] Future Scheduled 2021-08-26 COLONOSCOPY SCREENING [facility] Test 13:02:23 [code = COLONOSCOPY SCREENING] Future Scheduled 2021-08-26 Screening for [facility] Test 13:02:23 malignant neoplasm of lung (procedure) [code = [id number]] Future Scheduled 2021-08-26 SHINGLES VACCINES (#1) [facility] Test 13:02:23 [code = SHINGLES VACCINES (#1)] Future Scheduled 2021-08-26 COVID-19 VACCINE (3 - [facility] Test 13:02:23 Pfizer risk 4-dose series) [code = COVID-19 VACCINE (3 - Pfizer risk 4-dose series)] Future Scheduled 2021-08-26 65+ PNEUMOCOCCAL [facility] Test 13:02:23 VACCINE (4 of 4 - PPSV23) [code = 65+ PNEUMOCOCCAL VACCINE (4 of 4 - PPSV23)] Future Scheduled 2021-08-26 INFLUENZA VACCINE Method [facility] Test 13:02:23 [code = INFLUENZA VACCINE] Encounters Start End Encounter Admission Attending Care Care Encounter Source Date/Time Date/Time Type Type Clinicians Facility Department ID 2022-02-18 Outpatient [facility]W [facility] [id number] [place] 14:30:[address] [place] [address] [facility] 2021-07-14 Outpatient SADIKOVIC, [facility] [id number] [place] 09:33:51 ALIMERI [facility] 2021-06-02 Outpatient HEMATPOUR, [facility] [id number] [place] 13:58:59 [facility] 2021-04-28 Outpatient HEMATPOUR, [facility] [id number] [place] 11:21:22 [facility] 2021-03-20 Emergency [facility] [id number] [facility] HEMATPOUR, [facility] [id number] [place] 08:16:46 [facility] 2020-10-31 Outpatient HEMATPOUR, [facility] [id number] [place] 09:44:50 [facility] 2020-09-30 Outpatient HEMATPOUR, [facility] [id number] [place] 13:16:03 [facility] 2022-10-06 2022-10-06 Outpatient R RONALD, [facility] [id number] Univers 09:30:00 09:30:00 [facility]22-[facility]-26 2022-09-26 Refill FRANCO CardenasIT [id number] Univers 00:00:00 00:00:00 [facility] [id number] i [id number] [id number] [facility] [address] [place] 2022-09-03 2022-09-03 [facility] [id number] Univers 11:00:00 11:00:[address] [facility] 2022-08-24 2022-08-24 Refill Ronald, 1.2.840.1 [id number] Univers 00:00:00 00:00:00 [place] [address]7 [facility]3.818514 Medica l .8 [place] 2022-05-20 2022-05-20 Telephone Ronald, FRANCOIT [id number] Univers 00:00:00 00:00:00 [facility] [id number] [id number] [address] 2022-05-10 2022-05-10 Emergency [facility] [id number] Univers 10:30:00 16:31:00 HOME ity [facility] 2022-05-10 2022-05-10 Emergency [place], TRAUMA [id number] Univers 10:30:00 16:31:00 [facility] [id number] [id number] [id number] [address] 2022-05-10 2022-05-10 Telephone [facility] [id number] Univers 00:00:00 00:00:00 [facility] [id number] i [id number] [id number] [address] 2022-05-08 2022-05-08 Emergency [facility] [id number] Univers 16:18:00 18:42:00 [facility] 2022-05-08 2022-05-08 [facility] 1.2.840.114 [id number] Univers 16:18:00 18:42:00 Theresa BULLOCK [id number] ity [place] [id number] [address] 2022-05-07 2022-05-07 Telephone [facility] 1.2.840.114 [id number] Univers 00:00:00 00:00:00 [facility] [id number] i [place] [id number] [address] 2022-05-06 2022-05-06 Emergency [facility] ERT [id number] Univers 14:13:00 18:19:00 ANETTE barbsoa [facility] 2022-05-06 2022-05-06 Emergency [facility] [id number] Univers 14:13:00 18:19:00 Anette Krause KOBE [id number] ity [facility] 4.2.7.2.686 [facility] [id number] [address] 2022-05-06 2022-05-06 Telephone JOSÉ ANTONIO Cardenas 1.2.840.114 [id number] Univers 00:00:00 00:00:00 [facility] [id number] i ty of [facility] 4.2.7.2.686 [facility] [id number] [address] 2022-04-22 2022-04-22 Emergency X [facility] ERT [id number] Univers 13:55:00 17:00:00 PAULETTE ity [facility] 2022-04-22 2022-04-22 Emergency [facility] [id number] Univers 13:55:00 17:00:00 Pauletteronaldo CHAMBERSJEREMY [id number] i ty [facility] 4.2.7.2.686 [facility] [id number] [address] 2022-04-07 2022-04-07 Outpatient R COUNTS INCLUDE 234 [facility] [id number] Univers 20:40:00 20:40:00 ATTENDING ity of [facility] 2022-04-07 2022-04-07 Telephone Devin, 1.2.840.0 [id number] Univers 00:00:00 00:00:00 Robbi Hairston 72659.1.1 i ty of 3.104.2.7 [place] .[id number] Medica l .8 [employer] 2022-03-05 2022-03-05 [employer] Santiago Cardenas 1.2.840.1 [id number] Univers 13:45:00 14:00:00 Visit [facility] 78893.1.1 ity of 3.104.2.7 [place] .3.381207 Medica l .8 [employer] 2022-03-05 2022-03-05 Office JOSÉ ANTONIO Cardenas 1.2.459.638 [id number] Univers 13:00:00 13:30:00 Visit [facility] 350.1.13.10 i ty of CLINICS 4.2.7.2.686 Richi bach [id number] [facility] 089 Java 2022-03-05 2022-03-05 Outpatient R [facility] [id number] Univers 13:00:00 13:00:00 [facility] 2022-02-26 2022-02-26 Outpatient R [facility] [id number] Univers 08:30:00 08:30:00 [facility] 2022-02-26 2022-02-26 Outpatient [facility] [id number] Univers 08:30:00 08:30:00 [facility] 2022-02-17 2022-02-17 Transition Stevo, 1.2.840.5 [id number] Univers 00:00:00 00:00:00 of Care Isaias Arredondo 22539.1.1 it y of 3.104.2.7 [place] .3.883171 Medica l .8 Java 2022-02-10 2022-02-16 Inpatient X [facility] [id number] Univers 22:59:00 19:27:00 [facility] 2022-02-10 2022-02-16 Hospital Reilly Means 1.2.840.1 [id number] Univers 22:59:00 19:27:00 Encounter Ofe Shields 14576.1.1 ity of MarieTomy hairston 3.104.2.7 [place] .3.935990 Medica l .8 [place] 2022-02-11 2022-02-11 Telephone East, 1.2.840.2 [id number] [id number] Univers 00:00:00 00:00:00 Santiago 16270.1.1 ity of 3.104.2.7 [place] .3.146418 Medica l .8 Java 2022-02-10 2022-02-10 Travel 1.2.840.1 1.2.256.836 2949 9827 Univers 00:00:00 00:00:00 39576.1.1 350.1.13.10 ity of 3.104.2.7 4.[place].7.3.698 [place] .3.735109 084.8 Medica l .8 Branch 2022-01-30 2022-01-30 Telephone Ronald, 1.2.840.1 [id number] 965 [id number] Univers 00:00:00 00:00:00 Santiago 07035.1.1 ity of 3.104.2.7 [place] .3.250339 Medica l .8 Branch 2022-01-06 2022-01-06 Orders Doctor FERMIN 1.2.840.114 [id number] Univers 00:00:00 00:00:00 Only Unassigned, JACKELINE 350.1.13.10 ity of [place] [facility] 4.2.7.2.686 Yomi as [id number] [facility] 009 Java 2021-12-25 2021-12-25 Orders Doctor FERMIN 1.2.840.114 [id number] Univers 00:00:00 00:00:00 Only Unassigned, JACKELINE 350.1.13.10 ity of [place] [facility] 4.2.7.2.686 Yomi as [phone] [facility] 009 Branch 2021-12-12 2021-12-13 Emergency X Bill COLES [facility] ERT [id number] Univers 23:53:00 01:52:00 ity of [facility] 2021-12-12 2021-12-13 Emergency Bill Coles [facility] 1.2.840.114 [id number] Univers 23:53:00 01:52:00 Kiersten BULLOCK 350.1.13.10 i ty of [place].2.7.2.686 [place] [phone] [facility] 084 Branch 2021-11-20 2021-11-20 [employer] [facility] UNIVERSIT 1.2.840.114 9 [id number] Univers 09:45:00 10:00:00 Visit Santiago Cardenas [facility] 350.1.13.10 ity of CL[place]ICS 4.2.[place].2.[place] [id number] [facility] 316 Branch 2021-11-202021-11-20 Office Ronald [facility] 1.2.938.407 5899 9084 Univers 08:30:00 09:00:00 Visit Santiago [facility] 350.1.13.10 i ty [facility] 4.2.7.2.686 [facility] [phone] [address] 2021-11-20 2021-11-20 Outpatient R [facility] [id number] Univers 08:30:00 08:30:00 [facility] 2021-11-20 2021-11-20 Outpatient R [facility] [id number] Univers 08:30:00 08:30:00 [facility] 2021-11-20 2021-11-20 Outpatient R [facility] [id number] Univers 08:30:00 08:30:00 [facility] 2021-11-20 2021-11-20 Outpatient R [facility] [id number] Univers 08:30:00 08:30:00 [facility] 2021-10-24 2021-10-24 Emergency X [facility] ERT [id number] Univers 16:27:00 22:26:00 [facility] 2021-10-24 2021-10-24 Emergency X [facility] ERT [id number] Univers 16:27:00 22:26:00 [facility] 2021-10-24 2021-10-24 Emergency Reilly Means [facility] 1.2.840. 114 [id number] Univers 16:27:00 22:26:00 Charity Mcallister 350.1.13.10 [facility] 4.2.7.2.686 [facility] [phone] [address] 2021-10-23 2021-10-24 Emergency [facility] [id number] Univers 20:22:00 02:57:00 [facility] 2021-10-23 2021-10-24 Emergency [facility] 1.2.510.470 [id number] [id number] Univers 20:22:00 02:57:[address] [facility] 350.1.13.10 ity of [place].2.[place] [id number] [place] 883714 Java 2021-09-07 2021-09-07 Outpatient R [facility], [facility] [id number] Univers 08:00:00 08:00:00 GADIEL ity o f [facility] 2021-09-07 2021-09-07 Outpatient R SELF, [facility] [id number] Univers 08:00:00 08:00:00 GADIEL ity o [facility] 2021-08-21 2021-08-21 Outpatient R [facility] [id number] Univers 10:45:00 10:45:00 SANTIAGO [facility] 2021-08-21 2021-08-21 [employer] [place] Cardenas 1.2.840.1 [id number] Univers 10:45:00 10:45:00 Visit [facility] 83435.1.1 ity of 3.104.2.7 [place] .3.682758 Medica l .8 Java 2021-08-21 2021-08-21 Office Ronald, 1.2.840.0 [id number] [id number] Univers 08:30:00 09:00:00 Visit Santiago 29252.1.1 ity of 3.104.2.7 [place] .3.851475 Medica l .8 Java 2021-08-21 2021-08-21 Office [facility], [facility] 1.2.449.304 7479 8516 Univers 08:30:00 09:00:00 Visit Santiago [facility] 350.1.13.10 i ty of [facility] 4.2.7.2.686 [place] [phone] [place] 883719 Java 2021-08-21 2021-08-21 [facility] [id number] Univers 08:30:00 08:30:00 SANTIAGO charlie [place] [facility] 2021-08-21 2021-08-21 Travel 1.2.840.1 1.2.404.652 7717 3865 Univers 00:00:00 00:00:00 24237.1.1 350.1.13.10 ity of 3.104.2.7 4.2.7.3.698 [place] .3.253370 084.8 Medica l .8 Java 2021-08-14 2021-08-14 Telephone East, 1.2.840.3 [id number] Univers 00:00:00 00:00:00 Santiago 75319.1.1 ity of 3.104.2.7 [place] .3.869119 Medica l .8 Java 2021-08-13 2021-08-13 Telephone East, 1.2.840.4 [id number] Univers 00:00:00 00:00:00 Santiago 48318.1.1 ity of 3.104.2.7 [place] .3.822096 Medica l .8 Java 2021-08-11 2021-08-11 Outpatient [facility] [id number] Univers 08:00:00 08:00:00 [facility] 2021-08-05 2021-08-05 In[facility] [id number] [facility] 05:24:00 05:24:00 Mike 31 [facility] 2021-07-20 2021-07-20 Outpatient [facility] [id number] Univers 10:00:00 10:00:00 [facility] 2021-07-14 2021-07-14 Office KIMBERLEY Lira 6400 1.2.840.114 13 [id number] [place] 08:45:00 09:34:[address] 350.1.13.58 Health 9.2.7.2.686 [id number] 1 2021-07-09 2021-07-09 Telephone KIMBERLEY De Souza 6400 1.2.840.114 [id number] [place] 00:00:00 00:00:[address] 350.1.13.58 Health 9.2.7.2.686 [id number] 1 2021-07-09 2021-07-09 Telephone Hematpour, [facility] 6400 1.2.840.114 [id number] [place] 00:00:00 00:00:00 Beverly RUIZ 350.1.13.58 [facility] 9.2.7.2.686 [id number] 1 2021-07-03 2021-07-03 Outpatient R EAST, [facility] [id number] Univers 08:00:00 08:00:00 SANTIAGO barbosa [place] [facility] 2021-06-17 2021-06-17 Inpatient RAUL Lund, [facility] INTE.02 [id number] [facility] 10:56:00 14:36:00 Mike 47 [facility] 2021-06-15 2021-06-15 Outpatient R SELF, [facility] [id number] Univers 10:15:00 11:07:21 GADIEL vogel [facility] 2021-06-15 2021-06-15 Outpatient R SELF, [facility] [id number] Univers 10:15:00 10:15:00 GADIEL macielcharlie vogel [facility] 2021-06-15 2021-06-15 Outpatient R SELF, [facility] [id number] Univers 10:15:00 10:15:00 [facility] 2021-06-15 2021-06-15 Orders Doctor 1.2.840.4 [id number] Univers 00:00:00 00:00:00 Only Unassigned, 24521.1.1 ity of [place] 3.104.2.7 [place] .3.958695 Medica l .8 Java 2021-06-15 2021-06-15 Travel 1.2.840.1 1.2.509.377 7245 7719 Univers 00:00:00 00:00:00 20344.1.1 350.1.13.10 ity of 3.104.2.7 4.2.7.3.698 [place] .3.064402 084.8 Medica l .8 Branch 2021-06-11 2021-06-11 Reflamonte Cardenas, UNIVERSIT 1.2.996.826 9256 9185 Univers 00:00:00 00:00:00 [facility] 350.1.13.10 i ty of CLINICS 4[place].2.[place] [id number] [facility] 089 Branch 2021-06-11 2021-06-11 Refill East, 1.2.840.2 [id number] 185 Univers 00:00:00 00:00:00 Santiago 13480.1.1 ity of 3.104.2.7 [place] .3.989928 Medica l .8 Branch 2021-06-05 2021-06-05 Outpatient R EAST, [facility] [id number] Univers 09:00:00 09:00:00 SANTIAGO ity of [facility] 2021-06-02 2021-06-02 Telephone East, UNIVERSIT 1.2.840.114 90 [id number] Univers 00:00:00 00:00:00 [facility] 350.1.13.10 i ty of CLINICS 4.2.7.2.[place] [id number] [place] 883719 Branch 2021-06-02 2021-06-02 Telephone East, 1.2.840.2 [id number] [id number] Univers 00:00:00 00:00:00 Santiago 00363.1.1 ity of 3.104.2.7 [place] .3.360838 Medica l .8 Branch 2021-05-29 2021-05-29 Telephone East, 1.2.840.2 [id number] 902 [id number] Univers 00:00:00 00:00:00 Santiago 48942.1.1 ity of 3.104.2.7 [place] .3.717207 Medica l .8 Branch 2021-05-29 2021-05-29 Telephone East, 1.2.840.0 [id number] 902 [id number] Univers 00:00:00 00:00:00 Santiago 66760.1.1 ity of 3.104.2.7 [place] .3.508167 Medica l .8 Branch 2021-05-25 2021-05-25 Outpatient R SELF, [facility] [id number] Univers 08:00:00 08:00:00 GADIEL rodas [facility] 2021-04-29 2021-04-29 Outpatient R LALA, [facility] [id number] Univers 08:00:00 08:00:00 NIKOLAI barbosa [place] [facility] 2021-04-28 2021-04-28 Telephone KIMBERLEY De Souza 6400 1.2.840.114 [id number] [place] 00:00:00 00:00:[address] 350.1.13.58 Health 9.2.7.2.686 [id number] 1 2021-04-28 2021-04-28 Telephone Jailyn, 1.2.840.4 [id number] 21 [id number] Methodi 00:00:00 00:00:[address] 3.430.2.7 Hospit a .3.169476 l .8 2021-03-31 2021-03-31 Orders Carol Ann, 1.2.840.1 [id number] Methodi 00:00:00 00:00:00 Only Sarai Lieberman 93251.1.1 979 s t 3.430.2.7 Hospit a .3.766501 l .8 2021-03-30 2021-03-30 Outpatient R RODO, [facility] [id number] Univers 08:45:00 08:45:00 GADIEL vogel f [facility] 2021-03-24 2021-03-24 Telephone Jeredimasaleshia, 1.2.840.2 [id number] 21 [id number] Methodi 00:00:00 00:00:[address] 3.430.2.7 Hospit a .3.548456 l .8 2021-02-13 2021-02-13 Telephone Ronald, 1.2.840.0 [id number] 876 07049 Univers 00:00:00 00:00:00 Santiago 30734.1.1 ity of 3.104.2.7 [place] .3.906630 Medica l .8 Branch 2021-01-28 2021-01-28 Outpatient Marika REEVES, [facility] [id number] Univers 08:45:00 09:37:00 NIKOLAI barbosa [facility] 2021-01-28 2021-01-28 Travel 1.2.840.1 1.2.904.378 8664 9777 Univers 00:00:00 00:00:00 82088.1.1 350.1.13.10 ity of 3.104.2.7 4.2.7.3.698 [place] .3.816349 084.8 Medica l .8 Branch 2021-01-19 2021-01-19 Telephone Prabhu, 1.2.840.1 [id number] [id number] Methodi 00:00:00 00:00:[address] 3.430.2.7 Hospit a .3.520026 l .8 2021-01-04 2021-01-04 Dmitry Bass, 1.2.840.1 [id number] 03466 696 Univers 00:00:00 00:00:00 (Out) Dagoberto H 09310.1.1 ity of 3.104.2.7 [place] .3.221269 Medica l .8 Branch 2021-01-04 2021-01-04 Dmitry Bass, 1.2.840.8 [id number] 696 Univers 00:00:00 00:00:00 (Out) Dagoberto H 23597.1.1 ity of 3.104.2.7 [place] .3.843267 Medica l .8 Branch 2021-01-03 2021-01-03 Dmitry Bass, 1.2.840.0 [id number] 790 Univers 00:00:00 00:00:00 (Out) Dagoberto H 53285.1.1 ity of 3.104.2.7 [place] .3.157560 Medica l .8 Branch 2021-01-03 2021-01-03 Dmitry Bass, 1.2.840.5 [id number] 790 Univers 00:00:00 00:00:00 (Out) Dagoberto H 80399.1.1 ity of 3.104.2.7 [place] .3.115106 Medica l .8 Branch 2021-01-02 2021-01-02 Outpatient R [facility] [id number] Univers 13:40:00 13:40:00 ity of [facility] 2021-01-02 2021-01-02 Laboratory Cuba Franks 1.2.840.1 [id number] [id number] Univers 12:: 12:57:34 Only Lab, [place] 70825.1.1 ity of 3.104.2.7 [place] .3.280777 Medica l .8 Java 2021-01-02 2021-01-02 Laboratory [place] Franks 1.2.840.7 359029 1262 [id number] Univers 12::13 12:57:34 Only Lab, [facility] Fam Pob I 91476.1.1 ity of 3.104.2.7 [place] .3.342672 Medica l .8 Java 2021-01-02 2021-01-02 Travel 1.2.840.1 1.2.309.826 6282 2306 Univers 00:00:00 00:00:00 47348.1.1 350.1.13.10 ity of 3.104.2.7 4.2.7.3.698 [place] .3.397271 084.8 Medica l .8 [place] 2021-01-02 2021-01-02 Letter Doctor 1.2.840.5 [id number] 948 Univers 00:00:00 00:00:00 (Out) Unassigned, 96264.1.1 ity of [place] 3.104.2.7 [place] .3.024808 Medica l .8 Java 2021-01-02 2021-01-02 Letter Doctor 1.2.840.7 [id number] 946 Univers 00:00:00 00:00:00 (Out) Unassigned, 67344.1.1 ity of [place] 3.104.2.7 [place] .3.997974 Medica l .8 Java 2021-01-02 2021-01-02 Travel 1.2.840.1 1.2.371.837 6621 2306 Univers 00:00:00 00:00:00 22090.1.1 350.1.13.10 ity of 3.104.2.7 4.2.7.3.698 [place] .3.486936 084.8 Medica l .8 [place] 2021-01-02 2021-01-02 Letter Doctor 1.2.840.1 [id number] 13778 948 Univers 00:00:00 00:00:00 (Out) Unassigned, 60351.1.1 ity of [place] 3.104.2.7 [place] .3.048393 Medica l .8 Java 2021-01-02 2021-01-02 Letter Doctor 1.2.840.0 [id number] 96784 946 Univers 00:00:00 00:00:00 (Out) Unassigned, 50517.1.1 ity of [place] 3.104.2.7 [place] .3.942382 Medica l .8 Java 2020-12-22 2020-12-22 Telephone Beltran, 1.2.840.3 [id number] 862 80927 Univers 00:00:00 00:00:00 Eligionda R 18615.1.1 i ty of 3.104.2.7 [place] .3.300575 Medica l .8 Java 2020-12-22 2020-12-22 Telephone Beltran, 1.2.840.3 [id number] 862 58385 Univers 00:00:00 00:00:00 Roshunda R 47631.1.1 i ty of 3.104.2.7 [place] .3.502306 Medica l .8 Java 2020-12-12 2020-12-12 Office Hematpour, UTP 6400 1.2.840.114 12 [id number] [place] 07:42:02 08:18:[address] 350.1.13.58 Health 9.2.7.2.686 [id number] 1 2020-12-12 2020-12-12 Office Hematpour, UTP 6400 1.2.840.114 12 [id number] 07:42:02 08:18:50 Visit [address]ika J[address] 350.1.13.58 9.2.7.2.686 [id number] 1 2020-12-09 2020-12-09 [facility], 1.2.840.1 [id number] Methodi 00:00:00 00:00:00 Sarai Lieberman 93766.1.1 316 s t 3.430.2.7 Hospit a .3.381096 l .8 2020-12-08 2020-12-08 [facility], 1.2.840.1 [id number] 2100 972768 Methodi 12:35:54 23:59:00 Encounter Ray 83948.1.[address] 3.430.2.7 Hospit a .3.342612 l .8 2020-12-08 2020-12-08 Lab [facility], 1.2.840.1 [id number] 09697 69711 Methodi 17:25:00 17:30:[address] 3.430.2.7 Hospit a .3.479395 l .8 2020-12-08 2020-12-08 [facility], 1.2.840.1 [id number] 79225 76828 Methodi 10:30:00 11:39:56 Visit Ray 03841.1.[address] 3.430.2.7 Hospit a .3.938044 l .8 2020-12-08 2020-12-08 Travel 1.2.840.1 1.2.498.101 8958 963561 Methodi 00:00:00 00:00:[address] 3.430.2.7 0.2.7.3.698 Ho spita .3.535917 084.8 l .8 2020-12-02 2020-12-02 [employer] Santiago Cardenas 1.2.840.1 [id number] [facility] 10:20:06 10:36:19 Visit [facility] 23967.1.1 ity of 3.104.2.7 [place] .3.277108 Medica l .8 Java 2020-12-02 2020-12-02 [employer] Santiago Cardenas 1.2.840.1 [id number] 316 [id number] Univers 10:20:06 10:36:19 Visit [facility] 65426.1.1 ity of 3.104.2.7 [place] .3.570809 Medica l .8 Java 2020-12-02 2020-12-02 [employer] [facility] UNIVERSIT 1.2.840.114 8 [id number] 10:20:06 10:36:19 Visit [facility] 350.1.13.10 [facility] 4.2.7.2.686 [id number] 316 2020-12-02 2020-12-02 Office Ronald, 1.2.840.1 [id number] 02055 528 Univers 08:31:37 09:01:37 Visit Santiago 31077.1.1 ity of 3.104.2.7 [place] .3.336960 Medica l .8 Java 2020-12-02 2020-12-02 [facility]patient [facility] [id number] Univers 09:00:00 09:00:00 SANTIAGO ity of [facility] 2020-11-25 2020-11-25 Office Beltran, 1.2.840.2 [id number] 07017 865 Univers 11:06:30 11:58:14 Visit Robbi Hairston 53779.1.1 i ty of 3.104.2.7 [place] .3.539462 Medica l .8 Java 2020-11-25 2020-11-25 Office Devin, 1.2.840.3 [id number] 38920 865 Univers 11:06:30 11:58:14 Visit Robbi Hairston 29075.1.1 i ty of 3.104.2.7 [place] .3.209625 Medica l .8 Java 2020-11-25 2020-11-25 Office [facility] 1.2.840.114 [id number] 11:06:30 11:58:14 Visit Robbi Hairston [employer]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 350.1.13.10 REGIONAL 4.2.7.2.686 MATERNAL [id number] & CHILD [address] [place] [address] 2020-11-25 2020-11-25 Outpatient R [facility] [id number] 288 Univers 11:00:00 11:00:00 ity of [facility] 2020-11-25 2020-11-25 Telephone Beltran, 1.2.840.2 [id number] 855 00532 Univers 00:00:00 00:00:00 Devinaleshia R 88493.1.1 i ty of 3.104.2.7 [place] .3.581131 Medica l .8 Branch 2020-11-25 2020-11-25 Refill East, 1.2.840.8 [id number] 84380 592 Univers 00:00:00 00:00:00 Santiago 23302.1.1 ity of 3.104.2.7 [place] .3.328821 Medica l .8 Branch 2020-11-25 2020-11-25 Travel 1.2.840.1 1.2.486.016 0543 0247 Univers 00:00:00 00:00:00 90703.1.1 350.1.13.10 ity of 3.104.2.7 4.2.7.3.698 [place] .3.369636 084.8 Medica l .8 Branch 2020-11-25 2020-11-25 Orders Doctor 1.2.840.3 [id number] 24463 064 Univers 00:00:00 00:00:00 Only Unassigned, 23786.1.1 ity of [place] 3.104.2.7 [place] .3.479119 Medica l .8 Branch 2020-11-25 2020-11-25 Telephone Beltran, 1.2.840.7 [id number] 855 37085 Univers 00:00:00 00:00:00 Eligionda R 95756.1.1 i ty of 3.104.2.7 [place] .3.006902 Medica l .8 Branch 2020-11-25 2020-11-25 Refill East, 1.2.840.5 [id number] 39574 592 Univers 00:00:00 00:00:00 Santiago 87305.1.1 ity of 3.104.2.7 [place] .3.928166 Medica l .8 Branch 2020-11-25 2020-11-25 Travel 1.2.840.1 1.2.774.911 6582 0247 Univers 00:00:00 00:00:00 03261.1.1 350.1.13.10 ity of 3.104.2.7 4.2.7.3.698 [place] .3.212491 084.8 Medica l .8 Branch 2020-11-25 2020-11-25 Orders Doctor 1.2.840.0 [id number] 97574 064 Univers 00:00:00 00:00:00 Only Unassigned, 51792.1.1 ity of [place] 3.104.2.7 [place] .3.649227 Medica l .8 Java 2020-11-25 2020-11-25 [facility] 1.2.469.004 4645 4592 00:00:00 00:00:00 [facility] 350.1.13.10 [facility] 4.2.7.2.686 [id number] 089 2020-11-25 2020-11-25 Telephone [facility] 1.2.869.339 4908 0821 00:00:00 00:00:00 Robbi Hairston 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 350.1.13.10 [facility] 4.2.7.2.686 MATERNAL [id number] & CHILD [address] [place] [address] 2020-11-14 2020-11-14 Abstract Clark 1.2.840.1 [id number] 65732 88374 Methodi 00:00:00 00:00:[address] 3.430.2.7 Hospit a .3.314419 l .8 2020-11-14 2020-11-14 Telephone Clark 1.2.840.1 [id number] 2100 726912 Methodi 00:00:00 00:00:[address] 3.430.2.7 Hospit a .3.557053 l .8 2020-11-12 2020-11-12 Outpatient [facility] [id number] 323 Univers 08:30:00 08:30:00 SANTIAGO ity of [facility] 2020-11-07 2020-11-07 Telephone Agustina Ortiz UTP 6400 1.2.840.11 4 [id number] [place] 00:00:00 00:00:[address] 350.1.13.58 Health 9.2.7.2.686 [id number] 1 2020-11-07 2020-11-07 Telephone KIMBERLEY Ortiz 6400 1.2.840.114 124 [id number] 00:00:00 00:00:[address] 350.1.13.58 9.2.7.2.686 548.7079757 1 2020-10-31 2020-10-31 Office HematpourKIMBERLEY 6400 1.2.840.114 12 [id number] [place] 07:54:00 09:45:[address] 350.1.13.58 Health 9.2.7.2.686 [id number] 1 2020-10-30 2020-10-30 Abstract Rody Maguire UTP 6400 1.2.840.1 14 [id number] [place] 00:00:00 00:00:[address] 350.1.13.58 Health 9.2.7.2.686 [id number] 1 2020-10-29 2020-10-29 Refill [place], 1.2.840.5 [id number] 400 Univers 00:00:00 00:00:00 [place] 73610.1.1 ity of 3.104.2.7 [place] .3.409413 Medica l .8 Branch 2020-10-29 2020-10-29 Refill [place], 1.2.840.3 [id number] 01507 400 Univers 00:00:00 00:00:00 Santiago 31846.1.1 ity of 3.104.2.7 [place] .3.856780 Medica l .8 Branch 2020-10-27 2020-10-27 Telephone Jailyn 1.2.840.6 [id number] 21 [id number] Methodi 00:00:00 00:00:[address] 3.430.2.7 Hospit a .3.426008 l .8 2020-10-24 2020-10-24 Telephone Rodas, 1.2.840.1 [id number] 2100 [id number] Methodi 00:00:00 00:00:[address] 3.430.2.7 Hospit a .3.945270 l .8 2020-10-22 2020-10-22 Outpatient R SELF, [facility] [id number] Univers 13:00:00 13:00:00 GADIEL barbosa [facility] 2020-10-22 2020-10-22 Travel 1.2.840.1 1.2.253.813 2787 3839 Univers 00:00:00 00:00:00 33597.1.1 350.1.13.10 ity of 3.104.2.7 4[place].3.698 [place] .3.622086 084.8 Medica l .8 [place] 2020-10-22 2020-10-22 Travel 1.2.840.1 1.2.940.330 2295 3839 Univers 00:00:00 00:00:00 80998.1.1 350.1.13.10 ity of 3.104.2.7 [place].3.698 [place] .3.345520 084.8 Medica l .8 [place] 2020-10-13 2020-10-13 Outpatient R SELF, [facility] [id number] Univers 08:45:00 08:45:00 GADIEL vogel [facility] 2020-10-06 2020-10-12 Telemedici Jailyn, 1.2.840.1 [id number] 21 [id number] Methodi 15:30:00 00:08:46 ne Ray 0[address]07.1.[address] 3.430.2.7 Hospit a .3.054381 l .8 2020-09-30 2020-09-30 Telephone Jailyn, 1.2.840.9 [id number] 21 [id number] Methodi 00:00:00 00:00:[address] 3.430.2.7 Hospit a .3.649783 l .8 2020-09-21 2020-09-21 [facility] 1.2.840.1 1.2.835.383 7274 [id number] Methodi 00:00:00 00:00:[address] 3.430.2.7 0.2.7.3.698 Ho spita .3.039405 084.8 l .8 2020-09-06 2020-09-06 [facility] 1.2.840.1 [id number] 62839 Methodi 17:42:30 23:59:[address] 3.430.2.7 Hospit a .3.157722 l .8 2020-09-06 2020-09-06 [facility], 1.2.840.1 [id number] 2099 [id number] Methodi 16:50:00 17:41:00 Encounter Ray [address]36.1.[address] 3.430.2.7 Hospit a .3.683710 l .8 2020-09-05 2020-09-05 [facility], 1.2.840.1 [id number] 2099 [id number] Methodi 09:17:00 19:45:00 Encounter Ray [address]1765.1.[address] 3.430.2.7 Hospit a .3.063877 l .8 2020-09-05 2020-09-05 Surgery [facility] 1.2.840.1 [id number] 08882 60352 Methodi 11:30:00 13:15:[address] 3.430.2.7 Hospit a .3.745044 l .8 2020-09-05 2020-09-05 Anesthesia [facility], 1.2.840.1 [id number] 739 [id number] Methodi 11:27:00 12:20:00 Event Saraswathi 16248.1.1 243 s t V. 3.430.2.7 Hospit a .3.372701 l .8 2020-09-05 2020-09-05 Travel 1.2.840.1 1.2.604.462 8796 [id number] Methodi 00:00:00 00:00:[address] 3.430.2.7 0.2.7.3.698 Ho spita .3.638231 084.8 l .8 2020-09-04 2020-09-04 Telephone Meisenbach, 1.2.840.1 [id number] Methodi 00:00:00 00:00:00 Sarai Corbin. 75404.1.1 762 s t 3.430.2.7 Hospit a .3.987310 l .8 2020-09-02 2020-09-02 Telephone [place]isen[place], 1.2.840.5 [id number] Methodi 00:00:00 00:00:00 Sarai Corbin. 83109.1.1 344 s t 3.430.2.7 Hospit a .3.769320 l .8 2020-08-29 2020-08-30 [facility] [id number] [facility] 10:20:00 14:10:00 Outpatient r Marty 00 [facility] 2020-08-29 2020-08-30 Outpatient HEMATPOUR, [facility] CAR [address] [facility] 05:20:00 09:10:00 BEVERLY 2020-08-06 2020-08-06 Office Ronald, 1.2.840.1 [id number] 416 [facility] 08:03:23 09:17:49 Visit [place] [facility].1 [facility]104[facility]7 [facility].635727 Medica [facility] 2020-08-06 2020-08-06 Outpatient R RONALD [facility] [id number] Univers 08:30:00 08:30:00 SANTIAGO barbosa [facility] 2020-07-14 2020-07-14 Outpatient R RODO [facility] [id number] Univers 09:30:00 09:30:00 GADIEL rodas [facility] 2020-07-14 2020-07-14 Travel 1.2.840.1 1.2.551.782 [id number] Univers 00:00:00 00:00:00 09731.1.1 350.1.13.10 ity of 3[place]104.2.[place]698 [place]3.98[place]01 084.8 Medica l .8 [place] 2020-07-14 2020-07-14 Orders Doctor 1.2.840.2 [id number] Univers 00:00:00 00:00:00 Only Unassigned, 00034.1.1 ity of [place] 3.104.2.7 [place] .3.731845 Medica l .8 [place] 2020-06-16 2020-06-16 Outpatient R [facility] [id number] Univers 08:00:00 08:00:00 GADIEL rodas [facility] 2020-06-06 2020-06-06 Telephone East, 1.2.840.1 [id number] Univers 00:00:00 00:00:00 Santiago 55455.1.1 ity of 3.104.2.7 [place] .3.007120 Medica l .8 [place] 2020-06-04 2020-06-04 [employer] [place] Cardenas 1.2.840.1 [id number] Univers 09:31:58 09:40:12 Visit [facility] 52876.1.1 ity of 3.104.2.7 [place] .3.548706 Medica l .8 [place] 2020-06-04 2020-06-04 Office East, [facility] 1.2.694.048 [id number] Univers 08:13:41 09:28:25 Visit Santiago [facility] 350.1.13.10 i ty of CLINICS 4.2.7.2.686 Richi bach [id number] [facility] porfirio 089 Java 2020-06-04 2020-06-04 Outpatient R [facility] [id number] Univers 08:30:00 08:30:00 SANTIAGO barbosa [facility] 2020-06-04 2020-06-04 Orders Doctor 1.2.840.3 [id number] Univers 00:00:00 00:00:00 Only Unassigned, 21605.1.1 ity of [place] 3.104.2.7 [place] .3.398471 Medica l .8 [place] 2020-05-19 2020-05-19 Telephone East, 1.2.840.3 [id number] Univers 00:00:00 00:00:00 Santiago 62214.1.1 ity of 3.104.2.7 [place] .3.816815 Medica l .8 [place] 2020-04-24 2020-04-24 Telephone East, 1.2.840.8 [id number] Univers 00:00:00 00:00:00 Santiago 74375.1.1 ity of 3.104.2.7 [place] .3.494114 Medica l .8 [place] 2020-04-14 2020-04-14 Outpatient R EAST, [facility] [id number] Univers 09:00:00 09:00:00 SANTIAGO ity [facility] 2020-04-14 2020-04-14 Telephone East, 1.2.840.1 [id number] Univers 00:00:00 00:00:00 Santiago 80539.1.1 ity of 3.104.2.7 [place] .3.965196 Medica l .8 [place] 2020-03-31 2020-03-31 [facility] [id number] Univers 08:30:00 08:30:00 SANTIAGO ity [facility] 2020-03-03 2020-03-03 Outpatient R SELF, [facility] [id number] Univers 08:00:00 08:00:00 GADIEL familia vogel [facility] 2020-03-03 2020-03-03 Outpatient R SELF, [facility] [id number] Univers 08:00:00 08:00:00 GADIEL vogel f [facility] 2020-03-03 2020-03-03 Travel 1.2.840.1 1.2.172.332 [id number] Univers 00:00:00 00:00:00 27909.1.1 350.1.13.10 ity of 3.104.2.[place]3.698 [place]3.9037[place] 084.8 Medica l .8 [place] 2020-02-06 2020-02-06 Telephone East, 1.2.840.6 [id number] Univers 00:00:00 00:00:00 Santiago 19348.1.1 ity of 3.104.2.7 [place] .3.383631 Medica l .8 [place] 2020-01-26 2020-01-26 Emergency Caridad, 1.2.840.6 [id number] [id number] Univers 10:03:00 13:05:00 Cynise 77580.1.1 ity of 3.104.2.7 [place] .3.821997 Medica l .8 [place] 2020-01-26 2020-01-26 Travel 1.2.840.1 1.2.564.058 [id number] Univers 00:00:00 00:00:00 78926.1.1 350.1.13.10 ity of 3.104.2.[place]3.698 [place]3.466861 084.8 Medica l .8 [place] 2020-01-25 2020-01-25 Outpatient R [facility] [id number] Univers 08:30:00 08:30:00 SANTIAGO ity of [facility] 2020-01-25 2020-01-25 Telemedici [facility], 1.2.840.8 [id number] Univers 07:36:49 08:06:49 ne Visit Santiago 22039.1.1 ity of 3.104.2.7 [place] .3.968564 Medica l .8 [place] 2020-01-16 2020-01-16 Outpatient R [facility] [id number] Univers 08:00:00 08:00:00 SANTIAGO ity of [facility] 2020-01-16 2020-01-16 Telephone East, 1.2.840.0 [id number] Univers 00:00:00 00:00:00 Santiago 40452.1.1 ity of 3.104.2.7 [place] .3.172758 Medica l .8 [place] 2020-01-14 2020-01-14 Outpatient R SELF, [facility] [id number] Univers 08:00:00 08:00:00 GADIEL rodas [facility] 2019-12-31 2019-12-31 Outpatient R SELF, [facility] [id number] Univers 08:45:00 08:45:00 GADIEL rodas [facility] 2019-10-17 2019-10-17 Outpatient R EAST, [facility] [id number] Univers 08:30:00 08:30:00 SANTIAGO barbosa [facility] 2019-10-12 2019-10-12 Outpatient R EAST, [facility] [id number] Univers 13:00:00 13:00:00 SANTIAGO barbosa [facility] 2019-10-12 2019-10-12 Telemedici East, 1.2.840.4 [id number] Univers 07:38:30 08:08:30 ne Visit Santiago 91386.1.1 ity of 3.104.2.7 [place] .3.102370 Medica l .8 [place] 2019-10-08 2019-10-08 Outpatient R SELF, [facility] [id number] Univers 10:15:00 10:15:00 GADIEL rodas [facility] 2019-10-03 2019-10-03 Case Assman, 1.2.840.7 [id number] Univers 00:00:00 00:00:00 Management Michael Corbin 78648.1.1 i ty of 3.104.2.7 [place] .3.199207 Medica l .8 [place] 2019-09-27 2019-09-27 Telephone East, 1.2.840.5 [id number] Univers 00:00:00 00:00:00 Santiago 90982.1.1 ity of 3.104.2.7 [place] .3.405461 Medica l .8 Java 2019-09-04 2019-09-04 Refill East, 1.2.840.4 [id number] Univers 00:00:00 00:00:00 Santiago 97814.1.1 ity of 3.104.2.7 [place] .3.193623 Medica l .8 [place] 2019-07-24 2019-07-24 Outpatient R EAST, [facility] [id number] Univers 08:30:00 08:30:00 SANTIAGO ity [facility] 2019-07-17 2019-07-17 Outpatient R EAST, [facility] [id number] Univers 10:00:00 10:00:00 SANTIAGO ity [place] [facility] 2019-06-15 2019-06-15 Telephone East, 1.2.840.5 [id number] Univers 00:00:00 00:00:00 Santiago 53715.1.1 ity of 3.104.2.7 [place] .3.826749 Medica l .8 Java 2019-06-13 2019-06-13 Telephone Team, [facility] 1.2.840.8 [id number] Univers 00:00:00 00:00:00 Health 39889.1.1 [place] .3.902837 [place] .8 [place] 2019-05-10 2019-05-10 Refill Ronald, 1.2.840.1 [id number] Univers 00:00:00 00:00:00 Santiago 15658.1.1 ity of 3.104.2.7 [place] .3.632383 Medica l .8 Java 2019-05-09 2019-05-09 Refill Ronald, 1.2.840.0 [id number] Univers 00:00:00 00:00:00 Santiago 19252.1.1 ity of 3.104.2.7 [place] .3.782775 Medica l .8 [place] 2019-04-30 2019-04-30 Outpatient R SELF, [facility] [id number] Univers 10:15:00 10:33:05 GADIEL ity o f [facility] 2019-04-18 2019-04-18 [employer] [place] Cardenas 1.2.840.1 [id number] Univers 10:00:39 10:44:31 Visit [facility] 02423.1.1 ity of 3.104.2.7 [place] .3.335883 Medica l .8 Branch 2019-04-18 2019-04-18 Outpatient R EAST, [facility] [id number] Univers 10:00:00 10:44:31 SANTIAGO ity of [facility] 2019-04-18 2019-04-18 Office East, 1.2.840.9 [id number] Univers 08:27:44 09:53:27 Visit Santiago 04417.1.1 ity of 3.104.2.7 [place] .3.465269 Medica l .8 Branch 2019-04-18 2019-04-18 Orders Doctor 1.2.840.0 [id number] Univers 00:00:00 00:00:00 Only Unassigned, 73414.1.1 ity of [place] 3.104.2.7 [place] .3.961101 Medica l .8 Branch 2019-04-11 2019-04-11 Refill East, 1.2.840.6 [id number] Univers 00:00:00 00:00:00 [place] 18666.1.1 ity of 3.104.2.7 [place] .3.124970 Medica l .8 Branch 2019-04-09 2019-04-09 Refill East, 1.2.840.7 [id number] Univers 00:00:00 00:00:00 [place] 39200.1.1 ity of 3.104.2.7 [place] .3.002585 Medica l .8 Java 2019-04-03 2019-04-03 Telephone Team, [facility] 1.2.840.8 [id number] Univers 00:00:00 00:00:00 Health 50572.1.1 [place].2.[place] .3.231191 Med[place] l .8 Branch 2019-03-27 2019-03-27 Telephone Self, 1.2.840.4 [id number] Univers 00:00:00 00:00:00 Gadiel 82609.1.1 ity of 3.104.2.7 [place] .3.474558 Medica l .8 Branch 2019-01-17 2019-01-17 Office Ronald, 1.2.840.4 [id number] Univers 07:37:21 10:32:51 Visit Santiago 14844.1.1 ity of 3.104.2.7 [place] .3.958441 Medica l .8 Java 2019-01-04 2019-01-12 Office Eveline Hansen 1.2.840.7 [id number] Univers 11:19:32 11:08:05 Visit Mariela 88897.1.1 ity of 3.104.2.7 [place] .3.934673 Medica l .8 Java 2019-01-10 2019-01-10 Telephone Ephraimcharlie, 1.2.840.5 [id number] Univers 00:00:00 00:00:00 Eladio Inman 83718.1.1 ity of 3.104.2.7 [place] .3.955756 Medica l .8 Java 2018-12-18 2018-12-18 Office Geraldine, 1.2.840.1 [id number] Univers 08:48:45 09:13:43 Visit Leyda 58692.1.1 it y of 3.104.2.7 [place] .3.834048 Medica l .8 Java 2018-10-30 2018-10-30 Telephone Ronald, 1.2.840.6 [id number] Univers 00:00:00 00:00:00 [place] 29056.1.1 ity of 3.104.2.7 [place] .3.574780 Medica l .8 Java 2018-10-23 2018-10-23 Orders Doctor 1.2.840.9 [id number] Univers 00:00:00 00:00:00 Only Unassigned, 02926.1.1 ity of [place] 3.104.2.7 [place] .3.054304 Medica l .8 Java 2018-10-23 2018-10-23 Nurse Selvin, 1.2.840.9 [id number] Univers 00:00:00 00:00:00 Triage Stefanie 16390.1.1 ity of 3.104.2.7 [place] .3.409899 Medica l .8 Branch 2018-10-23 2018-10-23 Telephone Self, 1.2.840.4 [id number] Univers 00:00:00 00:00:00 Gadiel 12382.1.1 ity of 3.104.2.7 [place] .3.240954 Medica l .8 Branch 2018-10-20 2018-10-20 Telephone Self, 1.2.840.6 [id number] Univers 00:00:00 00:00:00 Gadiel 65655.1.1 ity of 3.104.2.7 [place] .3.981901 Medica l .8 Branch Results Test Description Test Time Test Comments Results Result Comments Source COMP. METABOLIC PANEL (68667) 2022-05-06 22:42:55 Test Item Value Reference Range Interpretation Comme nts NA (test code = 4830333053) 137 mmol/L 135-145 K (test code = 8687319831) 3.2 mmol/L 3.5-5.0 L CL (test code = 4422656297) 100 mmol/L 98-108 CO2 TOTAL (test code = 9060988703) 23 mmol/L 23-31 AGAP (test code = 2274351423) 2-16 BUN (test code = 4582306369) 41 mg/dL 7-23 H GLUCOSE (test code = 8183464660) 98 mg/dL 70-110 CREATININE (test code = 1.55 mg/dL 0.50-1.04 H 2313963264) TOTAL BILI (test code = 0.8 mg/dL 0.1-1.3 2417956795) CALCIUM (test code = 1921308581) 8.3 mg/dL 8.6-10.6 L T PROTEIN (test code = 9459235156) 6.9 g/dL 6.3-8.2 ALBUMIN (test code = 9523230466) 3.9 g/dL 3.5-5.0 ALK PHOS (test code = 9473774615) 89 U/L 34-122 ALTv (test code = 1742-6) 101 U/L 5-35 H AST(SGOT) (test code = 6836250349) 203 U/L 13-40 H eGFR (test code = 0447283581) mL/min/1.73m2 KYLE (test code = KYLE) Association [...] tests). Lab Interpretation (test code = Abnormal 51996-3) [facility] WITH [id number] 22:33:52 Test Item Value Reference Range Interpretation Comments WBC (test code = See_Comment L [Automated 2194-2) message] The sy stem which generated this result transmitted reference range : 4.30 - 11.10 10*3/?L. The reference range was not used to interpret this result as normal/abnormal . RBC (test code = See_Comment [Automated 982-8) message] The sy stem which generated this [...] RDW-SD (test code = 46.3 fL 39.0-49.9 07209-7) RDW-CV (test code = 13.5 % 12.0-15.5 788-0) PLT (test code = See_Comment L [Automated 777-3) message] The sy stem which generated this result transmitted reference range : 166 - 358 10*3/ ?L. The reference r abbey was not used to interpret this result as normal/abnormal . MPV (test code = 9.5 fL 9.5-12.9 09344-8) NRBC/100 WBC (test See_Comment [Automat ed code = 7393337893) message] The system which generated this result transmitted reference range : 0.0 - 10.0 /100 WBCs. The refer ence range was not u sed to interpret th is result as normal/abnormal . NRBC x10^3 (test code See_Comment [Auto mated = 9620357838) message] The s ystem which generated this result transmitted reference range : 10*3/?L. The reference range was not used to interpret this result as normal/abnormal . GRAN MAT (NEUT) % 58.3 % (test code = 770-8) IMM GRAN % (test code 0.80 % = 7363554416) LYMPH % (test code = 28.1 % 736-9) MONO % (test code = 12.0 % 5905-5) EOS % (test code = 0.5 % 713-8) BASO % (test code = 0.3 % 706-2) GRAN MAT x10^3(ANC) 2.29 10*3/uL 1.88-7.09 (test code = 0625018134) IMM GRAN x10^3 (test 0.03 10*3/uL 0.00-0.06 code = 2837646361) LYMPH x10^3 (test code 1.10 10*3/uL 1.32-3.29 L = 731-0) MONO x10^3 (test code 0.47 10*3/uL 0.33-0.92 = 742-7) EOS x10^3 (test code = 0.03-0.39 L 711-2) BASO x10^3 (test code 0.01-0.07 = 704-7) Lab Interpretation Abnormal (test code = 86918-3) [facility] METABOLIC PANEL (NA, K, CL, CO2, GLUCOSE, BUN, CREATININE, CA)2022-04-22 21:43:42 Test Item Value Reference Range Interpretation Comments NA (test code = 142 mmol/L 135-145 1374544191) K (test code = 3.5 mmol/L 3.5-5.0 6321388014) CL (test code = 106 mmol/L 98-108 6539782295) CO2 TOTAL (test code = 26 mmol/L 23-31 3722488196) AGAP (test code = 2-16 9217691782) BUN (test code = 29 mg/dL 7-23 H 3776869720) GLUCOSE (test code = 84 mg/dL 70-110 1209839291) CREATININE (test code = 1.16 mg/dL 0.50-1.04 H 5349836675) CALCIUM (test code = 8.2 mg/dL 8.6-10.6 L 5846634922) eGFR (test code = mL/min/1.73m2 8935574763) KYLE (test code = KYLE) Association of [...] tests). Lab Interpretation Abnormal (test code = 96058-7) [facility] WITH [id number] 21:33:01 Test Item Value Reference Range Interpretation Comments WBC (test code = See_Comment [Automated 7890-2) message] The sy stem which generated this [...] (test code = 50.7 fL 39.0-49.9 H 95748-9) RDW-CV (test code = 14.6 % 12.0-15.5 788-0) PLT (test code = See_Comment L [Automated 777-3) message] The sy stem which generated this result transmitted reference range : 166 - 358 10*3/ ?L. The reference r abbey was not used to interpret this result as normal/abnormal . MPV (test code = 8.8 fL 9.5-12.9 L 89273-0) NRBC/100 WBC (test See_Comment [Automat ed code = 8785374088) message] The system which generated this result transmitted reference range : 0.0 - 10.0 /100 WBCs. The refer ence range was not u sed to interpret th is result as normal/abnormal . NRBC x10^3 (test code See_Comment [Auto mated = 5680918639) message] The s ystem which generated this result transmitted reference range : 10*3/?L. The reference range was not used to interpret this result as normal/abnormal . GRAN MAT (NEUT) % 70.9 % (test code = 770-8) IMM GRAN % (test code 0.50 % = 4917656794) LYMPH % (test code = 17.4 % 736-9) MONO % (test code = 9.0 % 5905-5) EOS % (test code = 1.7 % 713-8) BASO % (test code = 0.5 % 706-2) GRAN MAT x10^3(ANC) 4.60 10*3/uL 1.88-7.09 (test code = 7919291838) IMM GRAN x10^3 (test 0.03 10*3/uL 0.00-0.06 code = 7792977993) LYMPH x10^3 (test code 1.13 10*3/uL 1.32-3.29 L = 731-0) MONO x10^3 (test code 0.58 10*3/uL 0.33-0.92 = 742-7) EOS x10^3 (test code = 0.11 10*3/uL 0.03-0.39 711-2) BASO x10^3 (test code 0.03 10*3/uL 0.01-0.07 = 704-7) Lab Interpretation Abnormal (test code = 60524-9) [facility] [id number] 06:01:07 Test Item Value Reference Range Interpretation Comments Blood Culture-Aerobic No organisms No growth Previo us (test code = 25587-0) isolated prelim inary verified result was Culture [...] Culture-Anaerobic isolated preliminar y (test code = 29463-2) verifi ed result was Culture In Progress [...] CDT Lab Interpretation Normal (test code = 80094-3) [facility] [id number] 06:01:07 Test Item Value Reference Range Interpretation Comments Blood Culture-Aerobic No organisms No growth Previo us (test code = 14104-0) isolated prelim inary verified result was Culture [...] Culture-Anaerobic isolated preliminar y (test code = 29848-4) verifi ed result was Culture In Progress [...] CDT Lab Interpretation Normal (test code = 42435-3) [facility] [id number] 06:01:07 Test Item Value Reference Range Interpretation Comments Blood Culture-Aerobic No organisms No growth Previo us (test code = 18946-6) isolated prelim inary verified result was Culture [...] Culture-Anaerobic isolated preliminar y (test code = 22760-1) verifi ed result was Culture In Progress [...] CDT Lab Interpretation Normal (test code = 77809-7) [facility] [id number] 10:49:10 Test Item Value Reference Range Interpretation Comments NT-proBNP (test code 2660 pg/mL See_Comment H [Autom ated = 5868929177) message] The system which generated this result transmitted reference range : <=125. The reference range was not used to interpret this result as normal/abnormal . KYLE (test code = KYLE) Biotin has been reported to cause a negative bias, interpret results relative to patient's use of biotin. Lab Interpretation Abnormal (test code = 20612-8) [facility] [id number] 10:49:10 Test Item Value Reference Range Interpretation Comments NT-proBNP (test code 2660 pg/mL See_Comment H [Autom ated = 9320292870) message] The system which generated this result transmitted reference range : <=125. The reference range was not used to interpret this result as normal/abnormal . KYLE (test code = KYLE) Biotin has been reported to cause a negative bias, interpret results relative to patient's use of biotin. Lab Interpretation Abnormal (test code = 97839-9) [facility] (NA, K, CL, CO2, GLUCOSE, BUN, CREATININE, CA)2022-02-15 10:44:07 Test Item Value Reference Range Interpretation Comments NA (test code = 134 mmol/L 135-145 L 8775899405) K (test code = 3.2 mmol/L 3.5-5 L 6495485966) CL (test code = 98 mmol/L 98-108 8653684403) CO2 TOTAL (test code = 27 mmol/L 23-31 1498720293) AGAP (test code = 2-16 2778278159) BUN (test code = 19 mg/dL 7-23 5430984844) GLUCOSE (test code = 102 mg/dL 70-110 3147837159) CREATININE (test code = 0.95 mg/dL 0.5-1.04 9672674994) CALCIUM (test code = 8.5 mg/dL 8.6-10.6 L 2947667424) eGFR (test code = mL/min/1.73m2 4931012827) KYLE (test code = KYLE) Association of [...] tests). Lab Interpretation Abnormal (test code = 15765-8) [facility]07 Test Item Value Reference Range Interpretation Comments MAGNESIUM (test code = 1957884200) 1.8 mg/dL 1.7-2.4 Lab Interpretation (test code = Normal 88890-8) [facility] 10:44:07 Test Item Value Reference Range Interpretation Comments MAGNESIUM (test code = 5151233927) 1.8 mg/dL 1.7-2.4 Lab Interpretation (test code = Normal 24492-5) [facility] METABOLIC PANEL (NA, K, CL, CO2, GLUCOSE, BUN, CREATININE, CA)2022-02-15 10:44:07 Test Item Value Reference Range Interpretation Comments NA (test code = 134 mmol/L 135-145 L 9152163180) K (test code = 3.2 mmol/L 3.5-5.0 L 8964438375) CL (test code = 98 mmol/L 98-108 3552369864) CO2 TOTAL (test code = 27 mmol/L 23-31 0479588601) AGAP (test code = 2-16 9452238639) BUN (test code = 19 mg/dL 7-23 2659331232) GLUCOSE (test code = 102 mg/dL 70-110 0834278558) CREATININE (test code = 0.95 mg/dL 0.50-1.04 8847657649) CALCIUM (test code = 8.5 mg/dL 8.6-10.6 L 6832981480) eGFR (test code = mL/min/1.73m2 1480342621) KYLE (test code = KYLE) Association of [...] tests). Lab Interpretation Abnormal (test code = 80527-3) [facility] WITH [id number] 10:12:06 Test Item Value Reference Range Interpretation Comments WBC (test code = See_Comment L [Automated 0890-2) message] The sy stem which generated this result transmitted reference range : 4.30 - 11.10 10*3/?L. The reference range was not used to interpret this result as normal/abnormal . RBC (test code = See_Comment L [Automated 279-8) message] The sy stem which generated this [...] RDW-SD (test code = 47.8 fL 39-49.9 14658-9) RDW-CV (test code = 15.2 % 12-15.5 788-0) PLT (test code = See_Comment L [Automated 777-3) message] The sy stem which generated this result transmitted reference range : 166 - 358 10*3/ ?L. The reference r abbey was not used to interpret this result as normal/abnormal . MPV (test code = 8.9 fL 9.5-12.9 L 09475-7) NRBC/100 WBC (test See_Comment [Automat ed code = 4219317169) message] The system which generated this result transmitted reference range : 0.0 - 10.0 /100 WBCs. The refer ence range was not u sed to interpret th is result as normal/abnormal . NRBC x10^3 (test code See_Comment [Auto mated = 3845162797) message] The s ystem which generated this result transmitted reference range : 10*3/?L. The reference range was not used to interpret this result as normal/abnormal . GRAN MAT (NEUT) % 65.9 % (test code = 770-8) IMM GRAN % (test code 0.30 % = 4790128200) LYMPH % (test code = 21.0 % 736-9) MONO % (test code = 10.1 % 5905-5) EOS % (test code = 2.4 % 713-8) BASO % (test code = 0.3 % 706-2) GRAN MAT x10^3(ANC) 2.49 10*3/uL 1.88-7.09 (test code = 9119087686) IMM GRAN x10^3 (test 0-0.06 code = 4838218375) LYMPH x10^3 (test code 0.79 10*3/uL 1.32-3.29 L = 731-0) MONO x10^3 (test code 0.38 10*3/uL 0.33-0.92 = 742-7) EOS x10^3 (test code = 0.09 10*3/uL 0.03-0.39 711-2) BASO x10^3 (test code 0.01-0.07 = 704-7) Lab Interpretation Abnormal (test code = 23292-9) [facility] WITH [id number] 10:12:06 Test Item Value Reference Range Interpretation [...] RDW-SD (test code = 47.8 fL 39.0-49.9 12335-2) RDW-CV (test code = 15.2 % 12.0-15.5 788-0) PLT (test code = See_Comment L [Automated 777-3) message] The sy stem which generated this result transmitted reference range : 166 - 358 10*3/ ?L. The reference r abbey was not used to interpret this result as normal/abnormal . MPV (test code = 8.9 fL 9.5-12.9 L 23923-3) NRBC/100 WBC (test See_Comment [Automat ed code = [id number]) message] The system which generated this result transmitted reference range : 0.0 - 10.0 /100 WBCs. The refer ence range was not u sed to interpret th is result as normal/abnormal . NRBC x10^3 (test code See_Comment [Auto mated = [id number]) message] The s ystem which generated this result transmitted reference range : 10*3/?L. The reference range was not used to interpret this result as normal/abnormal . GRAN MAT (NEUT) % 65.9 % (test code = 770-8) IMM GRAN % (test code 0.30 % = [id number]) LYMPH % (test code = 21.0 % 736-9) MONO % (test code = 10.1 % 5905-5) EOS % (test code = 2.4 % 713-8) BASO % (test code = 0.3 % 706-2) GRAN MAT x10^3(ANC) 2.49 10*3/uL 1.88-7.09 (test code = [id number]) IMM GRAN x10^3 (test 0.00-0.06 code = [id number]) LYMPH x10^3 (test code 0.79 10*3/uL 1.32-3.29 L = 731-0) MONO x10^3 (test code 0.38 10*3/uL 0.33-0.92 = 742-7) EOS x10^3 (test code = 0.09 10*3/uL 0.03-0.39 711-2) BASO x10^3 (test code 0.01-0.07 = 704-7) Lab Interpretation Abnormal (test code = 06780-9) [facility] WITH [id number] 11:18:28 Test Item Value Reference Range Interpretation [...] RDW-SD (test code = 49.5 fL 39-49.9 62143-9) RDW-CV (test code = 15.5 % 12-15.5 788-0) PLT (test code = See_Comment L [Automated 777-3) message] The sy stem which generated this result transmitted reference range : 166 - 358 10*3/ ?L. The reference r abbey was not used to interpret this result as normal/abnormal . MPV (test code = 11.4 fL 9.5-12.9 41862-0) IPF % (test code = 8.7 % 1.3-7.7 H Platelet count [id number]) measured by fluorescence method. NRBC/100 WBC (test See_Comment [Automat ed code = [id number]) message] The system which generated this result transmitted reference range : 0.0 - 10.0 /100 WBCs. The refer ence range was not u sed to interpret th is result as normal/abnormal . NRBC x10^3 (test code See_Comment [Auto mated = [id number]) message] The s ystem which generated this result transmitted reference range : 10*3/?L. The reference range was not used to interpret this result as normal/abnormal . GRAN MAT (NEUT) % 62.0 % (test code = 770-8) IMM GRAN % (test code 0.80 % = 5692602251) LYMPH % (test code = 22.2 % 736-9) MONO % (test code = 9.6 % 5905-5) EOS % (test code = 5.1 % 713-8) BASO % (test code = 0.3 % 706-2) GRAN MAT x10^3(ANC) 2.21 10*3/uL 1.88-7.09 (test code = 3431577097) IMM GRAN x10^3 (test 0.03 10*3/uL 0-0.06 code = 9070029241) LYMPH x10^3 (test code 0.79 10*3/uL 1.32-3.29 L = 731-0) MONO x10^3 (test code 0.34 10*3/uL 0.33-0.92 = 742-7) EOS x10^3 (test code = 0.18 10*3/uL 0.03-0.39 711-2) BASO x10^3 (test code 0.01-0.07 = 704-7) POLYCHROMASIA (test 2+ See_Comment [Automa arpit code = 30019-6) message] The system which generated this result [...] . Lab Interpretation Abnormal (test code = 56561-7) [facility] METABOLIC PANEL (NA, K, CL, CO2, GLUCOSE, BUN, CREATININE, CA)2022-02-13 10:39:07 Test Item Value Reference Range Interpretation Comments NA (test code = 136 mmol/L 135-145 7651964931) K (test code = 4.1 mmol/L 3.5-5 4393680549) CL (test code = 102 mmol/L 98-108 6234918784) CO2 TOTAL (test code = 27 mmol/L 23-31 8357725195) AGAP (test code = 2-16 7683437796) BUN (test code = 22 mg/dL 7-23 0230167780) GLUCOSE (test code = 94 mg/dL 70-110 8692312878) CREATININE (test code = 0.94 mg/dL 0.5-1.04 3008646662) CALCIUM (test code = 8.1 mg/dL 8.6-10.6 L 9847061165) eGFR (test code = mL/min/1.73m2 9572183614) KYLE (test code = KYLE) Association of [...] tests). Lab Interpretation Abnormal (test code = 45591-8) [facility]2022-02-12 01:50:10 Test Item Value Reference Range Interpretation Comments Height (test code = in 8365311295) Weight (test code = lbs 4461142473) Systolic BP (test code mmHg = 3152570670) Diastolic BP (test code mmHg = 1716676945) Heart Rate (test code = bpm 1025874111) BSA (test code = 1.85 m2 2219088149) IVS (test code = 1.22 cm 7475632910) Interventricular Septum 1.22 cm Diastolic Thickness by 2D (test code = 5695400) LVIDD (test code = 5.00 cm 5923565267) Left Ventricular End 117.9 mL Diastolic Volume by Teichholz Method (test code = 8862800) LVPWD (test code = 1.22 cm 6056460495) PW (test code = 1.22 cm 0.6-1.6 7425145495) EF(Teich) (test code = 74.60 % 3742254038) LVIDS (test code = 2.80 cm 5724914887) Left Ventricular End 29.9 mL Systolic Volume by Teichholz Method (test code = 3386569) FS (test code = 44 % 3949198388) EF - 2D (test code = 74.60 % 73416560) LVOT diameter (test 2.16 cm code = 6021510337) LVOT area (test code = 3.70 cm2 7279542966) Ao root diam (test code 3.40 cm = 4671385168) Aortic root (test code 3.4 cm = 6588714418) Ao root annulus (test 3.4 cm code = 1428525371) LA size (test code = 3.4 cm 2705017974) TR Peak Spencer (test code 330.0 cm/s = 4333309536) Triscuspid Valve mmHg Regurgitation Peak Gradient (test code = 4177578052) PV REGURGITATION PEAK mmHg GRADIENT (test code = 4936184060) PI dec slope (test code 137.20 cm/s2 = 0135807483) LAV(MOD-sp4) (test code 102.90 mL = 7198426695) MV Peak E Spencer (test 84.1 cm/s code = 1423648037) MV Peak A Spencer (test 40.1 cm/s code = 6028427949) E/A ratio (test code = ratio 7941113288) MV valve area p 1/2 3.70 cm2 method (test code = 2982201255) MV dec slope (test code 413.00 cm/s2 = 2006981542) MV P1/2t max spencer (test 83.70 cm/s code = 5904200524) MV Prop V (test code = 41.80 cm/s 5665627533) Tapse (test code = 1.83 cm 9847130611) LVOT stroke volume 96.90 cm3 (test code = 2897994918) LVOT peak spencer (test 125.5 cm/s code = 5577417728) LVOT mn grad (test code mmHg = 4518163810) AV LVOT peak gradient mmHg (test code = 5342583847) LVOT peak VTI (test 26.4 cm code = 5354350125) LV V1 mean (test code = 78.10 cm/s 2063806315) Aortic valve mean 103.7 cm/s velocity (test code = 3282157433) Ao peak spencer (test code 165.6 cm/s = 2105610921) Ao VTI (test code = 37.2 cm 3062698401) AV area by cont VTI 2.6 cm2 (test code = 3448145434) AV area peak spencer (test 2.8 cm2 code = 3484464304) Ao max PG (test code = 11.00 mm[Hg] 3111426382) AV peak gradient (test mmHg code = 2339036674) AV valve area (test 2.60 cm2 code = 8138772880) AV mean gradient (test mmHg code = 7316453737) LA Volume Index (BP) 55.2 mL/m2 (test code = 9408613156) LA volume (BP) (test 102.1 mL code = 0998066436) LAV(MOD-sp2) (test code 86.10 mL = 3041810931) A2C EF (test code = 61.20 % 5022619224) EF(sp2-el) (test code = 61.60 % 8717924342) SV(MOD-sp2) (test code 47.10 mL = 0751573140) LV Diastolic Volume 70.7 mL (BP) (test code = 8494761587) A4C EF (test code = 53.00 % 3447322693) EF(MOD-bp) (test code = 56.70 % 6322211313) EF(sp4-el) (test code = 53.90 % 9804542599) LV Systolic Volume (BP) 30.6 mL (test code = 7956748275) SV(MOD-bp) (test code = 40.10 mL 5482787829) SV(MOD-sp4) (test code 32.40 mL = 0538237463) SV(sp4-el) (test code = 33.10 mL 3528085915) EF (test code = 0000682807) Left Ventricular Stroke 40.1 mL Volume by 2-D Biplane-MOD (test code = 6049044) LV Diastolic Volume 38.2 mL/m2 Index (BP) (test code = 8682407641) LV Systolic Volume 16.5 mL/m2 Index (BP) (test code = 8079515465) Radiology Study observation (narrative) (test code = 84095-1) KYLE (test code = KYLE) ?Left?Ventricle: Left [...] motion is normal. [facility] CampusTROP[facility] Q5671-11-03 05:45:01 Test Item Value Reference Interpretation Comments Range TROPONIN I (test See_Comment [Automated code = 3740225772) message] The system which generated this result [...] biotin. Lab Interpretation Normal (test code = 26927-3) [facility]N-TERMINAL HBW-XIZ7341-59-22 05:41:40 Test Item Value Reference Range Interpretation Comments NT-proBNP (test code 4250 pg/mL See_Comment H [Autom ated = 1411761455) message] The system which generated this result transmitted reference range : <=125. The reference range was not used to interpret this result as normal/abnormal . KYLE (test code = KYLE) Biotin has been reported to cause a negative bias, interpret results relative to patient's use of biotin. Lab Interpretation Abnormal (test code = 95031-0) [facility] CampusACTIVATED PARTIAL THRMPLAS HSH0615-75-30 05:35:21 Test Item Value Reference Range Interpretation [...] seconds. Lab Interpretation Normal (test code = 59919-1) [facility] CampusACTIVATED PARTIAL THRMPLAS GEZ2754-37-70 05:35:21 Test Item Value Reference Range Interpretation [...] seconds. Lab Interpretation Normal (test code = 77545-5) [facility] CampusPROTHROMBIN TIME / [id number] 05:33:21 Test Item Value Reference Range Interpretation [...] tions. Lab Interpretation (test Normal code = 30046-9) [facility]. METABOLIC PANEL (64608)2022-02-11 05:33:21 Test Item Value Reference Range Interpretation Comments NA (test code = 137 mmol/L 135-145 1358879230) K (test code = 4.3 mmol/L 3.5-5 9654319877) CL (test code = 103 mmol/L 98-108 5825452932) CO2 TOTAL (test code = 25 mmol/L 23-31 9959501563) AGAP (test code = 2-16 6221072500) BUN (test code = 19 mg/dL 7-23 7642661432) GLUCOSE (test code = 120 mg/dL 70-110 H 6037211248) CREATININE (test code = 1.15 mg/dL 0.5-1.04 H 8726074503) TOTAL BILI (test code = 0.9 mg/dL 0.1-1.9 5256039160) CALCIUM (test code = 8.9 mg/dL 8.6-10.6 9430352454) T PROTEIN (test code = 6.6 g/dL 6.3-8.2 3335171627) ALBUMIN (test code = 4.0 g/dL 3.5-5 2346494974) ALK PHOS (test code = 73 U/L 34-122 3747817916) ALTv (test code = 18 U/L 5-35 2-6) AST(SGOT) (test code = 31 U/L 13-40 6854733677) eGFR (test code = mL/min/1.73m2 0066045094) KYLE (test code = KYLE) Association of [...] tests). Lab Interpretation Abnormal (test code = 45529-4) [facility]. METABOLIC PANEL (96538)2022-02-11 05:33:21 Test Item Value Reference Range Interpretation Comments NA (test code = 137 mmol/L 135-145 1376594854) K (test code = 4.3 mmol/L 3.5-5.0 7857642764) CL (test code = 103 mmol/L 98-108 4023987264) CO2 TOTAL (test code = 25 mmol/L 23-31 8556585311) AGAP (test code = 2-16 8361378836) BUN (test code = 19 mg/dL 7-23 3026074213) GLUCOSE (test code = 120 mg/dL 70-110 H 0516628514) CREATININE (test code = 1.15 mg/dL 0.50-1.04 H 7977378731) TOTAL BILI (test code = 0.9 mg/dL 0.1-1.0 7468275259) CALCIUM (test code = 8.9 mg/dL 8.6-10.6 4926776289) T PROTEIN (test code = 6.6 g/dL 6.3-8.2 6652904285) ALBUMIN (test code = 4.0 g/dL 3.5-5.0 8585026664) ALK PHOS (test code = 73 U/L 34-122 9201485446) ALTv (test code = 18 U/L 5-35 1742-6) AST(SGOT) (test code = 31 U/L 13-40 5885094065) eGFR (test code = mL/min/1.73m2 6930333171) KYLE (test code = KYLE) Association of [...] tests). Lab Interpretation Abnormal (test code = 08664-3) [facility] CampusPROTHROMBIN TIME / [id number] 05:33:21 Test Item Value Reference Range Interpretation [...] tions. Lab Interpretation (test Normal code = 10799-7) [facility] CampusCB WITH KCEY9220-05-17 05:14:37 Test Item Value Reference Range Interpretation [...] RDW-SD (test code = 47.9 fL 39-49.9 20195-5) RDW-CV (test code = 14.9 % 12-15.5 788-0) PLT (test code = See_Comment L [Automated 777-3) message] The sy stem which generated this result transmitted reference range : 166 - 358 10*3/ ?L. The reference r abbey was not used to interpret this result as normal/abnormal . MPV (test code = 9.1 fL 9.5-12.9 L 41972-9) NRBC/100 WBC (test See_Comment [Automat ed code = 2868189540) message] The system which generated this result transmitted reference range : 0.0 - 10.0 /100 WBCs. The refer ence range was not u sed to interpret th is result as normal/abnormal . NRBC x10^3 (test code See_Comment [Auto mated = 2131762680) message] The s ystem which generated this result transmitted reference range : 10*3/?L. The reference range was not used to interpret this result as normal/abnormal . GRAN MAT (NEUT) % 78.5 % (test code = 770-8) IMM GRAN % (test code 0.20 % = 4232746059) LYMPH % (test code = 11.6 % 736-9) MONO % (test code = 8.4 % 5905-5) EOS % (test code = 1.1 % 713-8) BASO % (test code = 0.2 % 706-2) GRAN MAT x10^3(ANC) 3.45 10*3/uL 1.88-7.09 (test code = 0409385650) IMM GRAN x10^3 (test 0-0.06 code = 8990723148) LYMPH x10^3 (test code 0.51 10*3/uL 1.32-3.29 L = 731-0) MONO x10^3 (test code 0.37 10*3/uL 0.33-0.92 = 742-7) EOS x10^3 (test code = 0.05 10*3/uL 0.03-0.39 711-2) BASO x10^3 (test code 0.01-0.07 = 704-7) Lab Interpretation Abnormal (test code = 56032-8) [facility] Coronavirus 2019 Bvrwsvb2326-73-87 18:08:00 Test Item Value Reference Range Interpretation [...] det ection of nucleic acids f rom admFVAK-ExM-7 v irus and diagnosis of SA RS-CoV-2 virusinfection. It is an Emergency Use Authorization ( EUA) testauthorized by the U.S. FDA. BASIC METABOLIC [id number] 09:37:00 Test Item Value Reference Range Interpretation [...] = 9.0 mg/dL 8.0-10.5 N CA) PROTHROMBIN QDXE6019-07-56 09:32:00 Test Item Value Reference Range Interpretation [...] (to prevent recurrent infar ct). 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 - XR CHEST 1 K7990-28-40 00:00:00 [facility] [place]EN [place]: MARJAN FLEMING : 1955 Sex: F FAX: Carmenza Kelly DO [phone] [place]: St: ADM FAX: Mike Scales MD [phone] FAX: Bahman Chopra [phone] Name: MARJAN [facility]LEMING [facility] Elen Garcia : 1955 Age/S: 66/F [address] [place] [address] Unit #: [id number] Loc: [place] [address] Phys: Bahman Chopra GEOTECH[employer]ICAL INTERN Acct: [id number] Dis Date: Status: ADM IN PHONE #: [phone] Exam Date: 06/17/2021 1320 FAX #: [phone] Reason: WATCHMAN EXAMS: CPT CODE: [id number] XR CHEST 1 V 88184 PROCEDURE INFORMATION: Exam: XR Chest Exam date [...] Chopra Technologist: RT Taylor(R) Trnscrd Date/Time/By: 06/17/2021 (7937) : By: Susanna Orig Print D/T: S: 06/17/2021 (3792) PAGE 1 Signed ReportCOVID 19 Asymptomatic IH MD1737-84-95 12:29:00 Test Item Value Reference Range Interpretation [...] high or waivedcomplexit y tests. BASIC METABOLIC APUOT4088-28-59 11:37:00 Test Item Value Reference Range Interpretation [...] code = 9.0 mg/dL 8.0-10.5 N CA) QKAWQNGMSX7566-29-84 11:37:00 Test Item Value Reference Range Interpretation Comments PREALBUMIN (test code = PREALB) 24.3 mg/dL 16.0-40.0 N PROTHROMBIN ZPPR4636-04-58 11:03:00 Test Item Value Reference Range Interpretation [...] (to prevent recurrent infar ct). CBC W/AUTO FGOQ5372-87-60 10:59:00 Test Item Value Reference Range Interpretation [...] 0.0-0.1 N NRBC#) - XR CHEST 2 V2022-91-59 00:00:00 [facility] : 1955 Sex: F FAX: Carmenza Kelly DO [phone] [place]: St: PRE FAX: Mike Scales MD [phone] Name: MARJAN FLEMING [facility] : 1955 Age/S: 66/F [address] [place], [place] [address] Unit #: [id number] Loc: [place] [address] Phys: Mike Lund MD Acct: [id number] Dis Date: Status: PRE [facility] PHONE #: [phone] Exam Date: 06/16/2021 1120 FAX #: [phone] Reason: PREOP EXAMS: CPT CODE: [id number] XR CHEST 2 V 78092 PROCEDURE INFORMATION: Exam: XR Chest Exam date [...] By: [email or web address] Orig Print D/T: S: 06/16/2021 (5815) PAGE 1 Signed ReportGastrointestinal mngpj4960-38-46 04:35:05 Test Item Value Reference Interpretation Comments [...] Rotavirus PCR (test Not Detected code = 3567674) Salmonella PCR (test Not Detected code = [...] PCR Not Detected (test code = 7124) [facility] bmuevpk1366-72-36 19:30:47 Test Item Value Reference Range Interpretation Comments Case number (test [id number] code = 2014272) Surgical pathology See link below for PDF report (test code = Lab Report 2255) Result status (test This is Supplemental code = 3056281) Report for [id number] [facility]2021-04-09 16:31:00 Test Item Value Reference Range Interpretation Comments POC Activated Clotting Time (test code 153 s = POC Activated Clotting Time) [facility]PohwmooKCUUHIVZCD5882-53-17 16:31:00 Test Item Value Reference Range Interpretation Comments POC Activated Clotting Time (test code 153 s = POC Activated Clotting Time) [facility] HospitalVdvdohbCONIQGZGHV4311-93-38 16:31:00 Test Item Value Reference Range Interpretation Comments POC Activated Clotting Time (test code 153 s = POC Activated Clotting Time) [facility] HospitalNvhvmuhZJXQPIRAEM8009-50-49 16:31:00 Test Item Value Reference Range Interpretation Comments POC Activated Clotting Time (test code 153 s = POC Activated Clotting Time) [facility] HospitalSwshcalFDGLOTMNSD1730-62-15 16:31:00 Test Item Value Reference Range Interpretation Comments POC Activated Clotting Time (test code 153 s = POC Activated Clotting Time) [facility] HospitalKwymsddIBFZHEJYXY2053-06-46 16:31:00 Test Item Value Reference Range Interpretation Comments POC Activated Clotting Time (test code 153 s = POC Activated Clotting Time) [facility] HospitalFtztbgzXUXQSSAWRM7806-25-97 16:31:00 Test Item Value Reference Range Interpretation Comments POC Activated Clotting Time (test code 153 s = POC Activated Clotting Time) [facility] HospitalTcxvqzhBBIAQYHOXJ2203-93-40 14:37:00 Test Item Value Reference Range Interpretation Comments POC Activated Clotting Time (test code 454 s = POC Activated Clotting Time) [facility] HospitalDihmhzjMYQRFMWCRU9274-11-80 14:37:00 Test Item Value Reference Range Interpretation Comments POC Activated Clotting Time (test code 454 s = POC Activated Clotting Time) [facility] HospitalYkgtqltVCZJGEMKQF4036-48-88 14:37:00 Test Item Value Reference Range Interpretation Comments POC Activated Clotting Time (test code 454 s = POC Activated Clotting Time) [place] 741701-04-09 14:37:00 Test Item Value Reference Range Interpretation Comments POC Activated Clotting Time (test code 454 s = POC Activated Clotting Time) [facility] HospitalYxwftnuLWSZXSNAWA2098-87-78 14:37:00 Test Item Value Reference Range Interpretation Comments POC Activated Clotting Time (test code 454 s = POC Activated Clotting Time) [facility] HospitalDrwzeveOHZASKGQGY1627-35-32 14:37:00 Test Item Value Reference Range Interpretation Comments POC Activated Clotting Time (test code 454 s = POC Activated Clotting Time) [facility] HospitalCiweprpPYXAJQYJZQ6456-58-34 14:37:00 Test Item Value Reference Range Interpretation Comments POC Activated Clotting Time (test code 454 s = POC Activated Clotting Time) [facility] HospitalJnypbitTHZTLAIXQQ9418-26-12 14:13:00 Test Item Value Reference Range Interpretation Comments POC Activated Clotting Time (test code 354 s = POC Activated Clotting Time) [facility] HospitalBvlkktpTLDMWVYGAU9745-30-82 14:13:00 Test Item Value Reference Range Interpretation Comments POC Activated Clotting Time (test code 354 s = POC Activated Clotting Time) [facility] HospitalOudjfgiDOJBNDUIYW8928-78-55 14:13:00 Test Item Value Reference Range Interpretation Comments POC Activated Clotting Time (test code 354 s = POC Activated Clotting Time) [facility] HospitalQcsnafqQIPHHYHTUG6104-45-35 14:13:00 Test Item Value Reference Range Interpretation Comments POC Activated Clotting Time (test code 354 s = POC Activated Clotting Time) [facility] HospitalQinmshvWMMQNNPZNQ6560-34-21 14:13:00 Test Item Value Reference Range Interpretation Comments POC Activated Clotting Time (test code 354 s = POC Activated Clotting Time) [facility] HospitalMlydfhpSXRNUTDZWH0432-67-91 14:13:00 Test Item Value Reference Range Interpretation Comments POC Activated Clotting Time (test code 354 s = POC Activated Clotting Time) [facility] HospitalGqdfarpCEPZCCDJDT5119-28-90 14:13:00 Test Item Value Reference Range Interpretation Comments POC Activated Clotting Time (test code 354 s = POC Activated Clotting Time) [facility]annBL[facility] B[facility] DRFYBIG2230-30-23 10:37:00Negative (08/29/20 5:37 AM) [facility] HKDJD8521-48-31 10:37:07549Uqirsnpv HermannCHEM PANEL 2020-08-29 10:37:0028[facility]annCHEM ETTKF7686-68-72 10:37:001.01[facility]annCHEM GNSVC1524-37-59 10:37:99306Hhepniue HermannCHEM ZMAIY4856-91-00 10:37:003.8[facility]annCHEM NNUFZ6187-03-97 10:37:30495Nxxxpylo HermannCHEM TSPXR1834-09-31 10:37:0028[facility]annCHEM TGHIJ2466-66-56 10:37:009.8 [facility]annCHEM VYWWX8324-66-35 10:37:0011.8[facility]annCHEM PANEL 2020-08-29 10:37:0059[facility]annCHEM MLINY5145-88-66 10:37:002.9[facility] BverjcqOSJQHRSDXO2468-55-79 10:37:006.8[facility] JscqteaBPFBHZTFOC8865-85-25 10:37:004.47[facility] TkqhgygMOSBFNDRPD9824-72-53 10:37:0010.6[facility] CEMLZWEPRU1192-34-48 10:37:0034.0[facility] TrpifnpICBPJTWMQL2563-24-71 10:37:00 76.1[facility] XsmxhwjDHYMVKTHMA2110-45-73 10:37:00 Test Item Value Reference Range Interpretation Comments MCH (test code = MCH) 23.8 pg 27.0-31.0 [facility] VyayxtpRZKQOJZXWD5498-02-03 10:37:0031.3[facility]annHEMATOLOGY 2020-08-29 10:37:0018.2[facility] TckcesjJPEAXKTPBD8693-28-63 10:37:82884Mztbmxjx XnidjqqBPIKOOTZPJ3468-84-86 10:37:007.5[facility] RixbhejJZHHGUGBIM7380-01-86 10:37:00 Test Item Value Reference Range Interpretation Comments PT (test code = PT) 12.8 s 12.0-14.7 [facility] KysfnscGNQPBRUFCF2440-68-63 10:37:00 Test Item Value Reference Range Interpretation Comments INR (test code = INR) 0.97 1 0.85-1.17 [facility] QebxhjfBTXMRDYTWT6947-46-91 10:37:00 Test Item Value Reference Range Interpretation Comments PTT (test code = PTT) 25.0 s 22.9-35.8 [facility] WyovmisDVFYRSNQGO4188-69-18 10:37:0070.5[facility] HermannHEMATOLOGY 2020-08-29 10:37:0018.8[facility] DmconlwRFGXEBDJZW8169-33-51 10:37:009.5[facility] MotmjpqHXTLCTBMSM0391-00-22 10:37:000.9[facility] TdsqwjeRDBBYMGZDE8947-99-00 10:37:000.3[facility] VzlauvfLGHKWCHIMG1588-50-27 10:37:004.8[facility] QULDGPYERX2281-82-94 10:37:001.3[facility] RqrtkrtIEJXHXTJFW7157-40-46 10:37:000.6 [facility] SpmawhtZKQHFLYLLZ3493-23-27 10:37:000.1[facility]annHEMATOLOGY 2020-08-29 10:37:001+ *ABN*(08/29/20 5:37 AM)[facility] BgtrvctKAUIKSINWF7094-63-25 10:37:00Not Detected (08/29/20 5:37 AM)[facility]annBLOOD BANK RESULTS 2020-08-29 10:37:00Negative (08/29/20 5:37 AM)[facility]annCHEM LIEEV3135-42-29 10:37:29338Hmjbqyyj HermannCHEM VADWE4620-66-64 10:37:0028[facility]annCHEM XAKQF9013-18-07 10:37:001.01[facility] HermannCHEM AWTQP1799-44-97 10:37:13958 [facility]annCHEM USHTW2492-78-09 10:37:003.8[facility]annCHEM PANEL 2020-08-29 10:37:74900Ubxscyhq HermannCHEM MCRSF6712-52-98 10:37:0028[facility]annCHEM JVLTI5323-42-50 10:37:009.8[facility]annCHEM NNPHG7476-49-17 10:37:0011.8[facility]annCHEM ISVFZ6967-49-90 10:37:0059[facility]annCHEM QRFQG4616-90-49 10:37:002.9[facility] SdnwsysAYZGUXDMTE3543-95-58 10:37:006.8 [facility] RrnbqvuZXGGITTLIF6543-81-61 10:37:004.47[facility]annHEMATOLOGY 2020-08-29 10:37:0010.6[facility] HuqihtcEODXQZIXTB4529-74-19 10:37:0034.0[facility] SlvaxheNGAOVOGPPH6480-95-31 10:37:0076.1[facility] QzlwhpbHQCWERLDAA6134-12-96 10:37:00 Test Item Value Reference Range Interpretation Comments MCH (test code = MCH) 23.8 pg 27.0-31.0 [facility] ZbtcbabCCQDEUWTXR0648-99-03 10:37:0031.3[facility] HermannHEMATOLOGY 2020-08-29 10:37:0018.2[facility] EmynuymONBKZUHKBG7011-51-81 10:37:07221Cutocybj YzsrczcKDPODSUYTO3974-94-36 10:37:007.5[facility] TsqpwhiENSRJDHKJC6547-29-16 10:37:00 Test Item Value Reference Range Interpretation Comments PT (test code = PT) 12.8 s 12.0-14.7 [facility] UelujrlVWZGIFXXDM1758-71-36 10:37:00 Test Item Value Reference Range Interpretation Comments INR (test code = INR) 0.97 1 0.85-1.17 [facility] HpsxeggZVZHQDIFAN4255-34-08 10:37:00 Test Item Value Reference Range Interpretation Comments PTT (test code = PTT) 25.0 s 22.9-35.8 [facility] OpizzxxVLETOWECVF9924-49-00 10:37:0070.5[facility]annHEMATOLOGY 2020-08-29 10:37:0018.8[facility] BsujyoeWZGYJVFXVH9071-68-11 10:37:009.5[facility] GgeabxkRKMFKTDHPH6633-50-33 10:37:000.9[facility] VbozptdZILMNVPRVD3316-18-08 10:37:000.3[facility] VwmpgkfBKXTUUAOEF5826-50-15 10:37:004.8[facility] CWKQZEOVVI4013-16-50 10:37:001.3[facility] MbjrqvyRVZPHXDCYQ7492-53-83 10:37:000.6 [facility] PnvcgdeORMWXVPIUR8405-71-29 10:37:000.1[facility]annHEMATOLOGY 2020-08-29 10:37:001+ *ABN*(08/29/20 5:37 AM)[facility] XfxmkkqSPNBFHAZFP9648-89-88 10:37:00Not Detected (08/29/20 5:37 AM)[facility] RESULTS 2020-08-29 10:37:00Negative (08/29/20 5:37 AM)[facility]annCHEM TPDHI4836-32-85 10:37:04594Huoyvpfv HermannCHEM MWBPH3779-99-64 10:37:0028[facility]annCHEM ZAQCJ5340-93-90 10:37:001.01[facility]annCHEM VJRDO9687-48-42 10:37:04138 [facility]annCHEM RHVUE4400-78-06 10:37:003.8[facility]annCHEM PANEL 2020-08-29 10:37:54337Viarodue HermannCHEM PPDCO9290-54-28 10:37:0028[facility]annCHEM FTZOW7503-65-56 10:37:009.8[facility]annCHEM HTAJE0968-42-63 10:37:0011.8[facility]annCHEM LAHFK5490-80-49 10:37:0059[facility]annCHEM ULDLH1304-93-15 10:37:002.9[facility] CunjuffJKBQQRDNKC3660-17-43 10:37:006.8 [facility] BlpwwzoZFPSCRYOLJ7804-17-50 10:37:004.47[facility]annHEMATOLOGY 2020-08-29 10:37:0010.6[facility] IfukxiyEQKVNRKJLZ1310-80-06 10:37:0034.0[facility] JttefgwFGZRHSWOSK8646-34-42 10:37:0076.1[facility] MduzcjaLZXJBSTRTR4248-95-19 10:37:00 Test Item Value Reference Range Interpretation Comments MCH (test code = MCH) 23.8 pg 27.0-31.0 [facility] EqgxvemQRWCQASYJH0413-49-52 10:37:0031.3[facility]annHEMATOLOGY 2020-08-29 10:37:0018.2[facility] QstkhywPLRQXBFWMJ1161-70-77 10:37:81597Xlbwzttm EacqikfLGFNFWJHVC7343-57-68 10:37:007.5[facility] MffvrifMNJNRQLMNE8417-01-61 10:37:00 Test Item Value Reference Range Interpretation Comments PT (test code = PT) 12.8 s 12.0-14.7 [facility] LyrqeroIOCCGZRUCK5883-31-83 10:37:00 Test Item Value Reference Range Interpretation Comments INR (test code = INR) 0.97 1 0.85-1.17 [facility] DzxyajtLWRWPWLHDA1787-21-45 10:37:00 Test Item Value Reference Range Interpretation Comments PTT (test code = PTT) 25.0 s 22.9-35.8 [facility] JbhefblTRQPIVSJKB5474-23-13 10:37:0070.5[facility]annHEMATOLOGY 2020-08-29 10:37:0018.8[facility] FgqkkhzMQKBJUMTIL2537-72-50 10:37:009.5[facility] IpavsmfNRUYOMJSME8145-68-07 10:37:000.9[facility] MvtzhwcMSIWGUMZWS2373-19-66 10:37:000.3[facility] AbwrsmxQWPPXTARMP1225-41-07 10:37:004.8[facility] EZKDPZFGOF9341-87-72 10:37:001.3[facility] CoebrttOAGGDFPPAB2643-04-08 10:37:000.6 [facility] OjmauweZVVZKCCVTJ0289-04-87 10:37:000.1[facility]annHEMATOLOGY 2020-08-29 10:37:001+ *ABN*(08/29/20 5:37 AM)[facility] MbboxwtVAIUJDPQWS7363-81-80 10:37:00Not Detected (08/29/20 5:37 AM)[facility]ann[facility]OD BANK RESULTS 2020-08-29 10:37:00Negative (08/29/20 5:37 AM)[facility] HermannCHEM FVAGZ0355-11-39 10:37:63199Omgjdhok HermannCHEM UIFAH9083-31-27 10:37:0028[facility]annCHEM HYAWN3249-02-61 10:37:001.01[facility]annCHEM JQOPB1930-14-11 10:37:20351 [facility]annCHE[facility] TUDHX3678-70-60 10:37:003.8[facility]annCHEM PANEL 2020-08-29 10:37:80769Vhrbmokm HermannCHEM DJMRN3232-90-38 10:37:0028[facility]annCHEM ZHLYM7988-82-37 10:37:009.8[facility]annCHEM EDYHL8465-38-84 10:37:0011.8[facility]annCHEM BJSUZ2574-29-42 10:37:0059[facility]annCHEM JNYZF0656-61-02 10:37:002.9[facility] AzksqirBLEUFKAFZG0731-20-35 10:37:006.8 [facility] XnreoncKHZIHTQHDY6492-58-49 10:37:004.47[facility]annHEMATOLOGY 2020-08-29 10:37:0010.6[facility] YmqnqhmYFWDGMLWSQ2961-81-03 10:37:0034.0[facility] ZtoneusEFUNSOQREJ2126-13-77 10:37:0076.1[facility] KwadhkdWFKTNSGURK2487-96-81 10:37:00 Test Item Value Reference Range Interpretation Comments MCH (test code = MCH) 23.8 pg 27.0-31.0 [facility] DpflpkaWBXQTKQJJF3975-09-39 10:37:0031.3[facility]annHEMATOLOGY 2020-08-29 10:37:0018.2[facility] WhwnojoLTAAZURBXR5295-23-47 10:37:98962Ovviqquo SlbenxdGUJDNIXIAQ8006-49-80 10:37:007.5[facility] AeltmvjETIPZSEDQB6509-33-42 10:37:00 Test Item Value Reference Range Interpretation Comments PT (test code = PT) 12.8 s 12.0-14.7 [facility] PxfvtxnXZZUXTGLRS1283-74-66 10:37:00 Test Item Value Reference Range Interpretation Comments INR (test code = INR) 0.97 1 0.85-1.17 [facility] FvretyuPAMSUVHVGM1367-84-21 10:37:00 Test Item Value Reference Range Interpretation Comments PTT (test code = PTT) 25.0 s 22.9-35.8 [facility] YpgzyqwCYCSCPXTMZ1438-46-70 10:37:0070.5[facility]annHEMATOLOGY 2020-08-29 10:37:0018.8[facility] KundutsEKSWBARJFR3723-98-59 10:37:009.5[facility] OvunetyPBGQKAOYSQ0845-82-15 10:37:000.9[facility] VokgeobAJXBPTPZQJ6556-68-63 10:37:000.3[facility] MbrmlfzKLMEETWVYE0480-56-27 10:37:004.8[facility] QYDTGDJYTF9687-97-93 10:37:001.3[facility] NkdhcqbWHATMPDYQS1762-57-23 10:37:000.6 [facility] FzoehkcDRBATUFQKH9386-55-05 10:37:000.1[facility]annHEMATOLOGY 2020-08-29 10:37:001+ *ABN*(08/29/20 5:37 AM)[facility] OtijgvkXLXUJBKFBS3654-60-57 10:37:00Not Detected (08/29/20 5:37 AM)[facility]annBLOOD BANK RESULTS 2020-08-29 10:37:00Negative (08/29/20 5:37 AM)[facility]annCHEM VYWCJ2692-18-56 10:37:68384Cluoxjbd HermannCHEM YJUIO3029-20-78 10:37:0028[facility]annCHEM ECMAJ0505-90-62 10:37:001.01[facility]annCHEM ZAHYM5841-08-58 10:37:40278 [facility]annCHE[facility] JBFIP3226-88-11 10:37:003.8[facility]annCHEM PANEL 2020-08-29 10:37:10265Qkoufymr HermannCHEM HTPBE3502-38-17 10:37:0028[facility]annCHEM CXQPT0572-80-74 10:37:009.8[facility]annCHEM CUAHY9482-21-24 10:37:0011.8[facility]annCHEM YDAKM3929-76-99 10:37:0059[facility]annCHEM EPVFW2091-48-38 10:37:002.9[facility] BbxzqjuTGYVDZJIRW8193-05-83 10:37:006.8 [facility] McfhuynIHNHHBWCTQ4733-69-54 10:37:004.47[facility]annHEMATOLOGY 2020-08-29 10:37:0010.6[facility] PsdbcuyWFEDNSNHBZ5371-48-25 10:37:0034.0[facility] VorhzdzYUYFUQTCSP0962-60-27 10:37:0076.1[facility] SccuhjvTATQGIDMKI5702-39-06 10:37:00 Test Item Value Reference Range Interpretation Comments MCH (test code = MCH) 23.8 pg 27.0-31.0 [facility] ZpxnbwtOAKRIDVWYV6429-59-77 10:37:0031.3[facility]annHEMATOLOGY 2020-08-29 10:37:0018.2[facility] UilyquwDWGMHYTDIX8472-54-47 10:37:77988Mytcvwjr ZqzqcacXPYYSTYMBF7462-21-86 10:37:007.5[facility] KdkiseuDSZAFWTFCQ8185-73-66 10:37:00 Test Item Value Reference Range Interpretation Comments PT (test code = PT) 12.8 s 12.0-14.7 [facility] QkneitvHBVRDAWXDW1529-74-06 10:37:00 Test Item Value Reference Range Interpretation Comments INR (test code = INR) 0.97 1 0.85-1.17 [facility] GmrnhikQYLXTMYPHB4055-38-88 10:37:00 Test Item Value Reference Range Interpretation Comments PTT (test code = PTT) 25.0 s 22.9-35.8 [facility] FbfeojbFAKFGFEDRN3840-41-73 10:37:0070.5[facility]annHEMATOLOGY 2020-08-29 10:37:0018.8[facility] IdkivfvELWKQEYGBL7294-94-22 10:37:009.5[facility] QbqikwaHKFROOQGSC0042-22-98 10:37:000.9[facility] RyjorgcEXSXDVXRCO9095-57-95 10:37:000.3[facility] DbbgnpzCJIIITSSCI0639-11-38 10:37:004.8[facility] LVAAVGXIIR5591-63-69 10:37:001.3[facility] QeoqlxlFRXWJQCPZY8476-11-37 10:37:000.6 [facility] ZuvlbxpJBWTRUTEOF3400-92-90 10:37:000.1[facility]annHEMATOLOGY 2020-08-29 10:37:001+ *ABN*(08/29/20 5:37 AM)[facility] HdqnfasPBLHUOELID7813-51-11 10:37:00Not Detected (08/29/20 5:37 AM)[facility]annBLOOD BANK RESULTS 2020-08-29 10:37:00Negative (08/29/20 5:37 AM)[facility]annCHEM IGOKN8759-68-61 10:37:75572Xenkpjsv HermannCHEM NCINK1815-34-09 10:37:0028[facility]annCHEM IJJIF3778-27-05 10:37:001.01[facility]annCHEM TYETJ8612-55-53 10:37:64912 [facility]annCHEM RAYPR5407-49-20 10:37:003.8[facility] HermannCHEM PANEL 2020-08-29 10:37:24745Pkslzbkl HermannCHEM SAJER5363-57-85 10:37:0028[facility]annCHEM ZWJSB7136-16-70 10:37:009.8[facility] HermannCHEM BJYOS4553-80-39 10:37:0011.8[facility]annCHEM VXINF9354-69-85 10:37:0059[facility]annCHEM SCCRC3649-11-57 10:37:002.9[facility] LuzyyusRUJYPAZDTW9617-14-16 10:37:006.8 [facility] RkkmeicQGRRZXEPDT1327-01-19 10:37:004.47[facility]annHEMATOLOGY 2020-08-29 10:37:0010.6[facility] YywrhpmIPNJWCFGPK8004-37-19 10:37:0034.0[facility] EouzdtgAGXFPIIGUB6828-92-18 10:37:0076.1[facility] DpshjliBKUPSLSFBO2693-09-11 10:37:00 Test Item Value Reference Range Interpretation Comments MCH (test code = MCH) 23.8 pg 27.0-31.0 [facility] KzmmdmwZSQZLDDUZP3835-85-08 10:37:0031.3[facility]annHEMATOLOGY 2020-08-29 10:37:0018.2[facility] EzxqfmiQUYILVCZIB0543-85-15 10:37:52214Bgiqolkr VlemgboYUCKKGUWVD8801-07-32 10:37:007.5[facility] AsiovwvBSIRSRXIEG8440-84-92 10:37:00 Test Item Value Reference Range Interpretation Comments PT (test code = PT) 12.8 s 12.0-14.7 [facility] MvazfijLONGVWEEJC1029-02-61 10:37:00 Test Item Value Reference Range Interpretation Comments INR (test code = INR) 0.97 1 0.85-1.17 [facility] NnkmwjeEATXAVJHDY1571-72-22 10:37:00 Test Item Value Reference Range Interpretation Comments PTT (test code = PTT) 25.0 s 22.9-35.8 [facility] QlsrkhtTSKLMCVLHU8608-94-83 10:37:0070.5[facility]annHEMATOLOGY 2020-08-29 10:37:0018.8[facility] PwcjlvjBOKRZMUYHB2855-31-29 10:37:009.5[facility] KpemnecNEWPVHDJVZ6797-18-84 10:37:000.9[facility] UmiqjwcBAOIJYZGBJ7400-53-27 10:37:000.3[facility] DncbemhSQIFVJRCRQ8952-81-20 10:37:004.8[facility] CTYTDGIOTZ5326-22-74 10:37:001.3[facility] KlyttllXXJJOZSURT9621-03-62 10:37:000.6 [facility] BpqnpzrPQZAGZRTNP7504-90-99 10:37:000.1[facility]annHEMATOLOGY 2020-08-29 10:37:001+ *ABN*(08/29/20 5:37 AM)[facility] FqyxdmvWWRZPFJFHL7380-92-90 10:37:00Not Detected (08/29/20 5:37 AM)[facility]annBLOOD BANK RESULTS 2020-08-29 10:37:00Negative (08/29/20 5:37 AM)[facility]annCHEM AIKWU6391-81-82 10:37:90963Agcfnlgw HermannCHEM CFVGN5633-72-44 10:37:0028[facility]annCHEM JNXDX6839-49-35 10:37:001.01[facility]annCHEM TBKBJ5125-35-11 10:37:40318 [facility]annCHE[facility] LTTSH8106-77-12 10:37:003.8[facility] HermannCHEM PANEL 2020-08-29 10:37:22869Nhjeiogy HermannCHEM GJCXV5714-41-60 10:37:0028[facility] HermannCHEM OFPAT1256-68-46 10:37:009.8[facility]annCHEM XDGOX6200-14-60 10:37:0011.8[facility] HermannCHEM RTRNS5680-07-14 10:37:0059[facility]annCHEM BOISC6983-39-37 10:37:002.9[facility] JmbclqaPFXLJVRJRD1152-92-03 10:37:006.8 [facility] HgqkqmjKQSNCQCJWK5192-88-10 10:37:004.47[facility]annHEMATOLOGY 2020-08-29 10:37:0010.6[facility] MrolgwgUROYFRRMHI9723-46-09 10:37:0034.0[facility] DkelkduJSEZLNYVAB1042-09-99 10:37:0076.1[facility] TirtsxdRGWEUNGFVD4158-87-17 10:37:00 Test Item Value Reference Range Interpretation Comments MCH (test code = MCH) 23.8 pg 27.0-31.0 [facility] HyoonojYMAXDWSWOG0461-30-75 10:37:0031.3[facility]annHEMATOLOGY 2020-08-29 10:37:0018.2[facility] VmieeqdTYDIZYEZTX4801-77-24 10:37:41836Pvdxjlac RfcpiijEFPXGIRXMX3525-89-60 10:37:007.5[facility] VxggtkgAOIRINKETJ3477-36-98 10:37:00 Test Item Value Reference Range Interpretation Comments PT (test code = PT) 12.8 s 12.0-14.7 [facility] SslhhexNAVSRWAQFG7089-47-11 10:37:00 Test Item Value Reference Range Interpretation Comments INR (test code = INR) 0.97 1 0.85-1.17 [facility] CtpezmfPRVJAAAQHS1227-33-38 10:37:00 Test Item Value Reference Range Interpretation Comments PTT (test code = PTT) 25.0 s 22.9-35.8 [facility] QkujzyqISKWTVDNYQ6901-87-42 10:37:0070.5[facility]annHEMATOLOGY 2020-08-29 10:37:0018.8[facility] FfuyglfKPTKXHJBLJ1063-13-07 10:37:009.5[facility] UkteikiFUFEJVFJJB9253-12-99 10:37:000.9[facility] LshthnlZKIHTMAFVS3923-06-35 10:37:000.3[facility] IpeerugGCIKNWOBEL5209-60-54 10:37:004.8[facility] WAIHCMDWXF0788-73-96 10:37:001.3[facility] IruwxizMZMXJSYRUQ6128-74-73 10:37:000.6 [facility] KskhkchQMGSDXKXEH0268-07-61 10:37:000.1[facility]annHEMATOLOGY 2020-08-29 10:37:001+ *ABN*(08/29/20 5:37 AM)[facility] JiflgbyYOUYWVZZQB5112-48-04 10:37:00Not Detected (08/29/20 5:37 AM)[facility] TexasannCHLAMYDIA, GC, TV,PCR, IN IOVWV4553-37-63 15:38:00 Test Item Value Reference Range Interpretation Comments FT (test code = CHTR) Not detected (qualifier Not Detected N value) FT (test code = Not detected (qualifier Not Detected N NGONO) value) FT (test code = TRVG) Not detected (qualifier Not Detected N value) [facility] WITH OLKDLEPBHJJ9519-79-46 10:57:00 Test Item Value Reference Range Interpretation Comments Color (test code = UCOLR) Dk. Yellow Clarity (test code = UCLAR) Hazy Glucose (test code = UGLUC) NEGATIVE NEGATIVE N Bilirubin (test code = UBILI) NEGATIVE NEGATIVE N Ketones (test code = UKET) NEGATIVE NEGATIVE N Specific [place] (test code = 1.025 1.005-1.030 A USPGR) [...] None Seen None Seen N URCRYS) [facility] Notes Date/Time Note Provider Source 2021-08-05 14:08:00-00:00 [id number] [place] [address] PATIENT NAME: MARJAN FLEMING ADMIT DATE: 08/05/21 ACCOUNT NO: [id number] ROOM NO: AGE: 66 REPORT TYPE: eTRANSESOPHAGEAL ECHO REPORT SEX: F ADMITTING PHYSICIAN: ATTENDING PHYSICIAN:Mike Lund MD *[place] [address] Transesophageal Echocardiogram Patient: Marjan Fleming Study Date: 08/05/2021 BP: 158 / 92 Location: [facility] URN: [id number] : 1955 Age: 66 Height: / Gender: F Weight: / BMI/BSA: / *Ordering Physician: * Mike Lund *Interpreting Physician: * Ashely Mckeon MD *Mine Laborer: * Odessa Interiano Indications: POST WATCHMAN. Study [...] benzocaine spray. A transesophageal probe (SN: [id number]) was inserted by the attending test pilot without difficulty. L ocation: CV PREP. Patient [...] benzocaine spray. A transeso phageal probe (SN: [id number]) was inserted by the attending cardiolog ist [...] septum: No defect or patent foramen ov jamel is identified. 5. Mitral valve: There is mild regurgitation. 6. Tricuspid valve: There is trivial regurgitati on. Prepared and electronically signed by Ashely Mckeon MD 08/05/2021 14:08 Electronically Signed by Mike Lund MD on at 1408 PATIENT NAME: MARJAN FLEMING 1 2021-06-24 11:18:00-00:00 [phone] [address] PATIENT NAME: MARJAN FLEMING ADMIT DATE: 06/17/21 ACCOUNT NO: [id number] ROOM NO: ADDIS AGE: 66 REPORT TYPE: eTRANSESOPHAGEAL ECHO REPORT SEX: F ADMITTING PHYSICIAN:Mike Lund MD ATTENDING PHYSICIAN:Mike Lund MD *[address] [place] [address] Transesophageal Echocardiogram for Watchman Patient: Marjan Fleming Study Date: 06/17/2021 BP: Location: [facility] URN: [id number] 2647 : 1955 Age: 66 Height: / Gender: F Weight: / BMI/BSA: / *Ordering Physician: * Mike Lund *Interpreting Physician: Ghassan Mckeon MD Indications: Watchman procedure. Study data: Transesophageal Echocardiogram for Dewey goetz. Consent: The risks, benefits, and alternatives to the procedu re and sedation were explained to the patient and informed consent wa s obtained. Procedure: Initial setup: The patient was brought to the [facility] in the fasting state.Intravenous access was obtained. Surface E CG leads, blood pressure measurements, and pulse oximetric signals were m onitored. Sedation. Sedation was administered by anesthesiology samreen rodas. Transesophageal echocardiography was performed. A transesophagea l probe was inserted by the anesthesiologist. Images were obtained using a [employer] cardiac ultrasound machine. Location: Catheterization laboratory. Christian woodruff completion: The patient tolerated the procedure well. There were no complications. Findings Conclusions Summary: PATIENT NAME: MARJAN FLEMING 7 1. Study data: Transesophageal Echocardiogram fo r Watchman. 2. Procedure narrative: Transesophageal echocard iography was performed. A transesophageal probe was inserted by the dayton sthesiologist. Images were obtained using a [employer] cardiac ultrasound mac dalton. Impressions: Patient with [...] stable. Right groin suture removed by this CASINO OPERATIONS SUPERVISOR. No infect ion, bleeding, or hematoma. Dermabond applied and intact. Patient was provided with post-Watchman discharg e instructions. Patient is to follow up with PCP and test pilot in 1 t o 2 weeks post discharge. Patient is to follow up with test pilot for th e 45-day WESLEY, and for anticoagulation recommendation. Prepared and electronically signed by Ashely Mckeon MD 06/24/2021 11:18 Electronically Signed by Mike Lund MD on at 1118 PATIENT NAME: MARJAN FLEMING 7 2021-06-17 18:10:00-00:00 [id number] [place] [id number] PATIENT NAME: MARJAN FLEMING ADMIT DATE: 06/17/21 ACCOUNT NO: [id number] ROOM NO: ADDIS AGE: 66 REPORT TYPE: eECHOCARDIOGRAM REPORT SEX: F ADMITTING PHYSICIAN:Mike Lund MD ATTENDING PHYSICIAN:Mike Lund MD *[address] [address] Limited Transthoracic Echocardiogram Patient: Marjan Fleming Study Date: 06/17/2021 BP: 117 / 82 Location: [facility] URN: [id number] 2647 : 1955 Age: 66 Height: 64 in / 162.6 cm Gender: F Weight: 210 lb / 95.5 kg BMI/BSA: 36.1 kg/m 2 / 2.12 m 2 *Ordering Physician: * Bahman Chopra *Interpreting Physician: * Kevin Merino MD *Mine Laborer: * Tiarra Loja Indications: Post Watchman/Rule out pericardial effusion. Study data: Transthoracic echocardiogram, limite d study. Procedure: Transthoracic echocardiography was performed. Im age quality was adequate. Limited 2D and limited spectral Dopple r. Location: [facility]. Patient status: Outpatient. Study status: Routin e. [...] NAME: MARJAN FLEMING 7 2021-06-17 11:12:00-00:00 [facility]) Discharge Summary REPORT#:[id number] REPORT STATUS: Signed DATE:06/17/21 TIME: 1112 PATIENT: MARJAN FLEMING UNIT #: [id number] ROOM/BED: [place] [address] : [birth year] AGE: 67 SEX: F ATTEND: René Lund MD ADM AUTHOR: Bahman Chopra * ALL edits or amendments must be made on the Zift[employer]/computer document * PCP PCP Discharge to: home [...] stable. Right groin suture removed by this CASINO OPERATIONS SUPERVISOR. No infect ion, bleeding, or hematoma. Dermabond applied and intact. Patient was provided with post-Watchman discharg e instructions. Patient is to follow up with PCP and test pilot in 1 to 2 we eks post discharge. Patient is to follow up with test pilot for th e 45-day WESLEY, and for [...] breath, lightheadedness, or dizzi ness to the test pilot. Dispo: It is medically necessary that patients [...] 3.5 06/17 1022 Pulse Ox 96 06/17 06 B/P 228/108 06/17 06 Temp 36.0 06/17 06 Pulse 62 06/17 [...] distress GI: soft, non-tender Extremities: moves all Neuro/SEAT MAKER: alert, oriented X 3 Skin: dry Wound/incision: Location: Right groin suture removed by this CASINO OPERATIONS SUPERVISOR. No infect ion, bleeding, or hematoma. Dermabond applied and intact. Results Findings/Data: Laboratory Tests: 06/17 06/16 0834 1200 Coagulation Activated Coag Time (74 - 137 SEC) 249 H Serology SARS-CoV-2 Ag (Rapid) (Negative) Negative Treatments Procedures Imaging: Recent Impressions: RADIOLOGY - XR CHEST 2 V 06/16 1120 Report Impression - Status: SIGNED Entered: 06/16/2021 1135 IMPRESSION: No acute cardiopulmonary findings Impression By: [email or web address] - Selene Collins D.O. Discharge Instructions PCP PCP: PCP: Lele Rahman DO )( Discharge to: Home/Self Care Discharge Instructions Additional Discharge Routines: Attending Follow- Up )( Diet: Cardiac )( Activity: As Tolerated Follow-up Appointments Attending Physician: Attending Physician: Mike Lund MD Attending physician follow up timeframe: In 1-2 weeks Electronically Signed by Bahman Chopra o n 06/17/21 at 1613 Electronically Signed by Mike Lund MD on 07/14 at 0946 RPT #:[id number] END OF REPORT 2021-06-17 09:43:00-00:00 [id number] [place] [address] PATIENT NAME: MARJAN FLEMING ADMIT DATE: 06/17/21 ACCOUNT NO: [id number] ROOM NO: ADDIS AGE: 66 REPORT TYPE: eELECTROCARDIOGRAM REPORT SEX: F ADMITTING PHYSICIAN:Mike Lund MD ATTENDING PHYSICIAN:Mike Lund MD Order: [id number] Test Reason : S/P WATCHMAN Test Date/Time [...] PATIENT NAME: MARJAN FLEMING 7 2021-06-17 08:54:00-00:00 [id number] [address] PATIENT NAME: MARJAN FLEMING ADMIT DATE: 06/17/21 ACCOUNT NO: [id number] ROOM NO: ADDIS AGE: 66 REPORT TYPE: CARDIAC CATHETERIZATION REPORT SEX: F ADMITTING PHYSICIAN:Mike Lund MD ATTENDING PHYSICIAN:Mike Lund MD PROCEDURE DATE: 06/17/2021 PROCEDURE PERFORMED: Left atrial appendage closu re using a 24 mm Watchman FLX closure device. ACCESS: Right femoral vein, 16-Bangladeshi closed wit h dokifs-xs-chrtd suture. CONSUMER RECRUITER: Mike Lund MD. SECONDARY WEB CONTENT DEVELOPER: Kevin Merino MD. COMPLICATIONS: None. BLEEDING: Less [...] I accessed right femo ral vein, placed 8-Bangladeshi Cabot sheath. Subsequently, upgraded to 16-Bangladeshi sheath and gave a partial dose of heparin, then took the SL1 sheat h into the SVC over a wire with Proctor needle inside, descended under the fluor oscopy [...] I removed the Watchman sheath and the 16-Bangladeshi sheath and placed qgsnnj-fy-ccfas suture for hemostasis, then achieved a good hemo stasis. CONCLUSION: Left atrial appendage closure using a 24 mm Watchman FLX closure PATIENT NAME: MARJAN FLEMING 7 device. Dictated By: Mike Lund MD WT: CATH:GAYLE/RIKY/ALLA Conf#: [id number]/DID#: [id number] Authenticated by Mike Lund MD On 07/01/2021 12:30:01 PM Electronically Signed by Mike Lund MD on at 1230 PATIENT NAME: MARJAN FLEMING 7 2021-06-16 10:36:00-00:00 [id number] [place] [address] PATIENT NAME: MARJAN FLEMING ADMIT DATE: ACCOUNT NO: [id number] ROOM NO: AGE: 66 REPORT TYPE: eELECTROCARDIOGRAM REPORT SEX: F ADMITTING PHYSICIAN: ATTENDING PHYSICIAN:Mike Lund MD Order: [id number] Test Reason : PREOP Test Date/Time Stamp: [...] Mike Lund Confirmed by:ARMANDO RICHARDS MD at 1122 PATIENT NAME: MARJAN FLEMING 7"
--- NOTE | 2022-10-08 21:42 | RAD REPORT ---
EXAM DESCRIPTION: CT - CTHCSPWOC - 10/08/2022 9:21 pm CLINICAL HISTORY: Trauma, head and neck injury. fall COMPARISON: Soft Tissue Neck W/Contr dated 09/20/2022; Head C Spine Mpr Wo Con dated 06/24/2022; Head C Spine Mpr Wo Con dated 04/16/2022; Head C Spine Mpr Wo Con dated 01/04/2022 TECHNIQUE: Axial 5 mm thick images of the head were obtained. Axial 2 mm thick images of the cervical spine were obtained with sagittal and coronal reconstruction images generated and reviewed. All CT scans are performed using dose optimization technique as appropriate and may include automated exposure control or mA/KV adjustment according to patient size. FINDINGS: CT HEAD WITHOUT CONTRAST: No acute hemorrhage, hydrocephalus or extra-axial collection is identified.Mild generalized brain atr ophy is present with mild periventricular and deep white matter chronic microvascular ischemic change s.No areas of brain edema or midline shift. The paranasal sinuses and mastoids are clear.The calvarium is intact. CT CERVICAL SPINE WITHOUT CONTRAST: No fracture or subluxation.Moderate lower cervical degenerative changes.No prevertebral soft tissues swelling is identified. IMPRESSION: No acute intracranial or cervical spine findings.
--- NOTE | 2022-10-08 21:43 | RAD REPORT ---
EXAM DESCRIPTION: RAD - Pelvis - 10/08/2022 9:13 pm CLINICAL HISTORY: fall COMPARISON: Pelvis dated 01/04/2022 FINDINGS: No fracture, dislocation or radiographic evidence of AVN. IMPRESSION: Negative study.
--- NOTE | 2022-10-08 22:12 | EDPHYS ---
Physician Documentation [facility] Name: Marjan Kolb Age: 67 yrs Sex: Female : 1955 Arrival Date: 10/08/2022 Time: 20:56 Bed 3 Private MD: ED Physician Sameer Merrill HPI: 10/08 21:03 This 67 yrs old Female presents to ER via EMS with complaints of head pain bs3 and low back pain after a fall. 21:03 67-year-old female history of A-fib bipolar disorder angina, well-known to the [facility] emergency department patient with multiple visits over the past several days and months presents after a fall she notes that her legs gave out and she fell hitting the back of her head against the toilet she thinks she blacked out for just a second she needed assistance getting up she is complaining of low back pain and head pain denies any numbness tingling or weakness in her extremities she denies any prefall headache chest pain shortness of breath abdominal pain she does not feel like she was getting get weak and dizzy and then fell. Historical: - Allergies: 20:59 Azithromycin; lg3 20:59 Bactrim; lg3 20:59 butorphanol; lg3 20:59 Fentanyl; lg3 20:59 Reglan; lg3 20:59 Sulfa (Sulfonamide Antibiotics); lg3 20:59 TRIMETHOPRIM; lg3 - Home Meds: 20:59 lisinopril Oral [Active]; Metoprolol Tartrate Oral [Active]; lg3 - PMHx: 20:59 angina pectoris; angina pectoris; Anxiety; Atrial fibrillation; Bipolar disorder; lg3 esophageal varicies; Hepatitis; HIV positive; Hypertensive disorder; Migraine; panic attack; - Immunization history:: Adult Immunizations up to date, Client reports receiving the 2nd dose of the Covid vaccine, Flu vaccine is up to date. - Social history:: Smoking status: Patient denies any tobacco usage or history of. Patient/guardian denies using alcohol, street drugs. ROS: 21:03 Constitutional: Negative for fever, chills bs3 21:03 All other systems are negative. Exam: 21:03 Constitutional: Patient is disheveled she appears frail and unkempt Head/Face: bs3 Normocephalic, atraumatic. Eyes: Pupils equal round and reactive to light, extra-ocular motions intact. Lids and lashes normal. ENT: mmm, no posterior phyarngeal erythema Neck: Trachea midline, no thyromegaly, no neck stiffness Chest/axilla: Normal chest wall appearance and motion. Nontender with no deformity. No lesions are appreciated. Cardiovascular: Regular rate and rhythm with a normal S1 and S2. symmetric pulses in upper extremities Respiratory: Lungs have equal breath sounds bilaterally, clear to auscultation, no respiratory distress Abdomen/GI: Soft, non-tender, no rebound or guarding Back: No spinal tenderness. No costovertebral tenderness. Full range of motion. She does have right lumbar paraspinal tenderness to palpation Skin: Warm, dry with normal turgor. Normal color with no rashes, no lesions, and no evidence of cellulitis. MS/ Extremity: Pulses equal, no cyanosis. Neurovascular intact. Patient has no significant pain with logrolling of her bilateral lower extremities or axial loading her feet are very dirty she has dried dirt on them Neuro: Awake and alert, GCS 15, oriented to person, place, time, and situation. Cranial nerves II-XII grossly intact. Motor strength 5/5 in all extremities. Sensory grossly intact. Psych: Awake, alert, with orientation to person, place and time. Behavior, mood, and affect are within normal limits. Vital Signs: 20:58 BP 199 / 110; Pulse 55; Resp 17 S; Temp 98.1(O); Pulse Ox 99% on R/A; Weight 90.72 kg lg3 (R); Height 5 ft. 4 in. (R); 20:58 Body Mass Index 34.33 (90.72 kg, 162.56 cm) lg3 MDM: 20:58 Patient medically screened. bs3 21:03 Differential diagnosis: Contusion of Hematoma on Intracranial bleed- Concussion lumbar bs3 strain. Data reviewed: vital signs, nurses notes. ED course: Patient with multiple visits over the past several months per EMS and per the patient she states that she fell in the bathroom however EMS found her sitting on the couch watching TV when they got there there may be the a component of secondary gain given the multiple visits will rule out intracranial hemorrhage C-spine fracture will rule out obvious pelvic fracture she is no midline lumbar spine tenderness to indicate a lumbar spine fracture will treat pain. 21:58 Independent interpretation of the following test(s) in the Emergency Department CT bs3 Scan: My interpretation is No intracranial hemorrhage. 10/08 21:02 Order name: CT Head C Spine; Complete Time: 21:57 bs3 10/08 21:02 Order name: Pelvis XRAY; Complete Time: 21:57 bs3 Administered Medications: 21:12 Drug: Acetaminophen PO 500 mg Route: PO; lg3 22:19 Follow up: Response: No adverse reaction lg3 Disposition Summary: 10/08/22 22:11 Discharge Ordered Location: Home bs3 Problem: new bs3 Symptoms: have improved bs3 Condition: Stable bs3 Diagnosis - Unspecified injury of head, initial encounter bs3 - Low back pain bs3 Followup: bs3 - With: Private Physician - When: 48 Hours - Reason: Re-evaluation by your physician Discharge Instructions: - Discharge Summary Sheet bs3 - Acute Back Pain, Adult bs3 - Head Injury, Adult bs3 Forms: - Medication Reconciliation Form bs3 - Thank You Letter bs3 - Antibiotic Education bs3 - Prescription Opioid Use bs3 Signatures: Dispatcher [employer] Christine Perry, RN RN lg3 Sameer Merrill MD MD bs3
--- NOTE | 2022-10-08 22:12 | ER ---
Nurse's Notes [facility] Name: Marjan Kolb Age: 67 yrs Sex: Female : 1955 Arrival Date: 10/08/2022 Time: 20:56 Bed 3 Private MD: Diagnosis: Unspecified injury of head, initial encounter;Low back pain Presentation: 10/08 20:58 Chief complaint: Patient states: i fell in the bathroom around an hour ago. i hit my lg3 head on the toilet. complaints of head and back pain. denies LOC. Coronavirus screen: Client denies travel out of the [place] in the last 14 days. At this time, the client does not indicate any symptoms associated with coronavirus-19. Ebola Screen: No symptoms or risks identified at this time. Initial Sepsis Screen: Does the patient meet any 2 criteria? No. Patient's initial sepsis screen is negative. Does the patient have a suspected source of infection? No. Patient's initial sepsis screen is negative. Risk Assessment: Do you want to hurt yourself or someone else? Patient reports no desire to harm self or others. Onset of symptoms was October 08, 2022. 20:58 Method Of Arrival: EMS: [facility] lg3 20:58 Acuity: BLAYNE 3 lg3 Triage Assessment: 20:59 General: Appears in no apparent distress. comfortable, Behavior is calm, cooperative. lg3 Pain: Complains of pain in head and back. EENT: No deficits noted. No signs and/or symptoms were reported regarding the EENT system. Neuro: No deficits noted. Gonzalez Agitation-Sedation Scale (RASS): 0 - Alert and Calm Level of Consciousness is awake, alert, obeys commands, Oriented to person, place, time, situation. Cardiovascular: No deficits noted. Capillary refill < 3 seconds Clubbing of nail beds is absent JVD is absent Patient's skin is warm and dry. Respiratory: No deficits noted. Airway is patent Respiratory effort is even, unlabored, Respiratory pattern is regular, symmetrical. GI: No deficits noted. No signs and/or symptoms were reported involving the gastrointestinal system. Abdomen is round non-distended, Bowel sounds present X 4 quads. : No deficits noted. No signs and/or symptoms were reported regarding the genitourinary system. Derm: No deficits noted. No signs and/or symptoms reported regarding the dermatologic system. Skin is intact, is healthy with good turgor, Skin is dry, Skin is normal, Skin temperature is warm. Musculoskeletal: No deficits noted. Circulation, motion, and sensation intact. Range of motion: intact in all extremities, Reports pain all over. Historical: - Allergies: 20:59 Azithromycin; lg3 20:59 Bactrim; lg3 20:59 butorphanol; lg3 20:59 Fentanyl; lg3 20:59 Reglan; lg3 20:59 Sulfa (Sulfonamide Antibiotics); lg3 20:59 TRIMETHOPRIM; lg3 - Home Meds: 20:59 lisinopril Oral [Active]; Metoprolol Tartrate Oral [Active]; lg3 - PMHx: 20:59 angina pectoris; angina pectoris; Anxiety; Atrial fibrillation; Bipolar disorder; lg3 esophageal varicies; Hepatitis; HIV positive; Hypertensive disorder; Migraine; panic attack; - Immunization history:: Adult Immunizations up to date, Client reports receiving the 2nd dose of the Covid vaccine, Flu vaccine is up to date. - Social history:: Smoking status: Patient denies any tobacco usage or history of. Patient/guardian denies using alcohol, street drugs. Screenin:03 [facility] ED Fall Risk Assessment (Adult) History of falling in the last 3 months, lg3 including since admission Yes- single mechanical fall (1 pt) Confusion or Disorientation No (0 pts) Intoxicated or Sedated No (0 pts) Impaired Gait No (0 pts) Mobility Assist Device Used No (0 pt) Altered Elimination No (0 pt) Score/Fall Risk Level 0 - 2 = Low Risk Oriented to surroundings, Maintained a safe environment, Educated pt \T\ family on fall prevention, incl call for assistance when getting out of bed, Provided non-skid footwear. Abuse screen: Denies threats or abuse. Denies injuries from another. Nutritional screening: No deficits noted. Tuberculosis screening: No symptoms or risk factors identified. Assessment: 21:02 General: see triage assessment . lg3 22:18 Reassessment: Patient appears in no apparent distress at this time. No changes from lg3 previously documented assessment. Patient and/or family updated on plan of care and expected duration. Pain level reassessed. Patient is alert, oriented x 3, equal unlabored respirations, skin warm/dry/pink. Vital Signs: 20:58 BP 199 / 110; Pulse 55; Resp 17 S; Temp 98.1(O); Pulse Ox 99% on R/A; Weight 90.72 kg lg3 (R); Height 5 ft. 4 in. (R); 20:58 Body Mass Index 34.33 (90.72 kg, 162.56 cm) lg3 ED Course: 20:58 Patient arrived in ED. lg3 20:58 Christine Perdomo, RN is Primary Nurse. lg3 20:58 Sameer Merrill MD is Attending Physician. bs3 20:59 Triage completed. lg3 20:59 Arm band placed on right wrist. lg3 21:03 Patient has correct armband on for positive identification. Placed in gown. Bed in low lg3 position. Call light in reach. Side rails up X 1. Client placed on continuous cardiac and pulse oximetry monitoring. NIBP monitoring applied. Door closed. Noise minimized. Warm blanket given. 21:03 Patient maintains SpO2 saturation greater than 95% on room air. lg3 21:15 Pelvis XRAY In Process Unspecified. EDMS 21:22 CT Head C Spine In Process Unspecified. EDMS 22:27 No provider procedures requiring assistance completed. Patient did not have IV access jb4 during this emergency room visit. Administered Medications: 21:12 Drug: Acetaminophen PO 500 mg Route: PO; lg3 22:19 Follow up: Response: No adverse reaction lg3 Outcome: 22:11 Discharge ordered by . bs3 22:27 Discharged to home via wheelchair. jb4 22:27 Condition: stable 22:27 Discharge instructions given to patient, Instructed on discharge instructions, follow up and referral plans. Demonstrated understanding of instructions, follow-up care. 22:28 Patient left the ED. jb4 Signatures: Dispatcher [employer] Mode Serrano RN RN jb4 Christine Perdomo, ASHLEY RAMIREZ lg3 Sameer Merrill MD MD bs3
[2022-10-08 22:33] VITALS: BP 199/110; TEMP 98.1; O2SAT 99
== END 2022-10-08 22:28 | disposition home or self-care (01) ==
LOC: ER 20:56
DX: S09.90XA Unspecified injury of head, initial encounter (principal); M54.50 Low back pain, unspecified; R51.9 Headache, unspecified; Z88.1 Allergy status to other antibiotic agents; Z88.2 Allergy status to sulfonamides; Z88.3 Allergy status to other anti-infective agents; Z88.5 Allergy status to narcotic agent; Z88.8 Allergy status to other drugs, medicaments and biological substances
CPT/HCPCS: 70450; 72125; 72170

== ENCOUNTER 2022-11-07 06:38 | Emergency (ER) | payer OTHER ==
--- OUTSIDE RECORDS SUMMARY | 2022-11-07 07:06 | XMS REPORT | Continuity of Care Document ---
:1955 Author Organization [facility] t Address [address] [place] [address] Care Team Providers Name Role Phone Urmila Rahman Primary Care Physician ELAN LIRA Attending Clinician Unavailable KINJALBEVERLY Attending Clinician Unavailable SANTIAGO CARDENAS Attending Clinician Unavailable Santiago Sanchez Attending Clinician HOME MATTHEWS Attending Clinician Unavailable Home Santamaria Attending Clinician THERESA HICKMAN Attending Clinician Unavailable Theresa Hickman DO Attending Clinician ANETTE OELA Attending Clinician Unavailable Anette Olea MD Attending Clinician PAULETTE GRAY Attending Clinician Unavailable Isaac PAC, Paulette S Attending Clinician UNKNOWN, ATTENDING Attending Clinician Unavailable Robbi Bal Attending Clinician [facility] Attending Clinician Unavailable Isaias Whiteside RN Attending Clinician Unavailable TOMY MARIE Attending Clinician Unavailable Reilly Means MD Attending Clinician Ofe Shields MD Attending Clinician Tomy Marie MD Attending Clinician Doctor Unassigned, [place] Attending Clinician Unavailable Bill COLES Attending Clinician Unavailable Bill Rose Attending Clinician CHARITY MCALLISTER Attending Clinician Unavailable Charity Mcallister MD Attending Clinician GADIEL KOEHLER Attending Clinician Unavailable Mike Lund Attending Clinician Unavailable NIKOLAI REEVES Attending Clinician Unavailable Eliseo Arce MD Attending Clinician Carol Ann IZQUIERDO, Sarai Lieberman Attending Clinician [phone] Ashly Pelletier MA Attending Clinician Unavailable Dagoberto Bass MD Attending Clinician [place] Evangelista Attending Clinician Lab, [facility] Attending Clinician Unavailable Monica Rodas MA Attending Clinician Unavailable Agustina Ortiz MA Attending Clinician Unavailable Rody Maguire RN Attending Clinician Unavailable Remigio MD, Saraswathi V. Attending Clinician HEMATPOUR, BEVERLY Attending Clinician Unavailable Caridad SALGUERO, Gloria Attending Clinician Xiao RAMIREZ, Michael Corbin Attending Clinician Unavailable Team, [facility] Attending Clinician UnavailDO PORSHA Newell Attending Clinician Unavailable Gadiel Koehler MD Attending Clinician Tyrone JENKINS, Eveline Sierra Attending Clinician Eladio Colorado RN Attending Clinician Unavailable Geraldine SALGUERO, Leyda Attending Clinician [phone] Selvin RAMIREZ, Stefanie Attending Clinician Unavailable [...] Number Effective Date Expiration Date S gabino [employer] [id number] 2012 STAR PLUS OON 00:00:00 [facility] [id number] 2019 DUAL COMPLETE HMO 00:00:00 [facility] [id number] 2019 PLUS 00:00:00 [facility] [id number] 2019 [facility] [place] STAR 00:00:00 [employer] MEDICARE ADV [id number] 2019 2019 00:00:00 00:00:00 Problems Condition Condition Condition Status Onset Resolution Last Treating Co mments Source Name Details Category Date Date Treatment Clinician Date Dyspnea, Dyspnea, Disease Active Unive rs unspecifie unspecifie 02-11 it y of d type d type 00:00: [place] [address] Medical Branch Gastropare Gastropare Disease Active Overview : Methodi sis sis 4-[address] 00:00: [facility] 00 note l might be different from the original. Added automatic ally from request for surgery [id number] Dysphagia Dysphagia Disease Active Overview: Methodi 4-[address] 00:00: g of this [facility] 00 note l might be different from the original. 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 2020-10-15 Get PVI PVI 3-30 17:07:00 l ABLATION ABLATION 00:00: Patel n W/ CARTO / W/ CARTO / 00 GA / T GA / T Active 08/19/2020 [facility] Food Food Disease Active 2019-05 [...] [facility] hoxazole 1-25 Clear 00:00: Garcia 00 [facility] trimetho DA Active SV [facility] prim 1-25 Clear 00:00: Garcia [facility] codeine DA Active SV N/V [facility] 1-25 Clear 00:00: Garcia [facility] Metoclop Propensi Active [place] ramide ty to 12-12 Health adverse 00:00: reaction 00 s BUTORPHA DRUG Active Unknown-Cmnt Un matt NOL INGREDI 11-25 ity of 00:00: [place] [facility] Butorpha Drug Active Unknown [...] Univers INGREDI 2-08 ity of 00:00: [place] [facility] TRIMETHO DRUG Active Hives [...] – [place] [facility] Hy[facility] father [facility] Natural mother [facility] Social History Social Habit Start Date Stop Date Quantity Comments Source Gender identity 2020-10-06 Identifies as [facility] 15:23:56 female gender Hospital (finding) History SDOH [facility] Alcohol Frequency Hospita l History SDOH [facility] Alcohol Std Drinks Hospit al History SDOH [facility] Alcohol Binge Hospital Sexual orientation [facility] History of Social 2022-08-26 2022-08-[address] function 00:00:00 00:00:00 Hospital Exposure to 2022-04-30 2022-05-10 Yes University of SARS-CoV-2 (event) 00:00:00 10:25:00 [facility] Tobacco use and 2022-02-11 2022-02-11 Former smokeless Uni versity of exposure 00:00:00 00:00:00 tobacco user [facility] Tobacco Comment 2022-02-11 2022-02-11 Smokes approx 1-2 Un iversity of 00:00:00 00:00:00 cigarettes per [facility] day when she Branch smokes Alcohol intake 2020-12-08 2020-12-08 Current drinker [facility] 00:00:00 00:00:00 of [facility] (finding) Cigarettes smoked 2020-09-05 2020-09-[address] current (pack per 00:00:00 00:00:00 Hospita l day) - Reported Cigarette 2020-09-05 2020-09-05 [facility] pack-years 00:00:00 00:00:00 Hospital Alcohol Comment 2016-09-23 2016-09-23 rare [facility] 00:00:00 00:00:00 Hospital History of tobacco 2011-09-29 User of smokeless University of use 00:00:00 tobacco [facility] Sex Assigned At [birth year] [facility] 00:00:00 00:00:00 Smoking Status Start Date Stop Date Source Ex-smoker 2022-02-11 00:00:00 2022-02-11 00:00:00 [facility] [place] [facility] Medications Ordered Filled Start Stop Current Ordering Indication Dosage Frequency Signature Comments Components Source Medication Medication Date Date Medication? Clinician (SIG) Name Name pelontay Yes [id number] Take one Univers ne-tenofovi 6-12 po daily ity of r alafen 00:00: [place] (DESCOVY) 00 Medical tablet Branch raltegravir Yes [id number] 400mg Take 1 Univers (ISENTRESS) 6-12 tablet by ity of 400 mg 00:00: mouth in [place] tablet 00 the Medical morning Branch and 1 tablet in the evening. DESCOVY Yes [id number] Take one Univers tablet 5-08 po daily ity of 00:00: [place] 00 Medical Branch raltegravir Yes [id number] 400mg Take 1 Univers (ISENTRESS) 5-08 tablet by ity of 400 mg 00:00: mouth in [place] tablet 00 the Medical morning Branch and 1 tablet in the evening. DESCOVY 2022- No [id number] Take one Univers tablet 5-08 06-12 po daily ity of 00:00: 00:00 [place] 00 :00 Medical Branch raltegravir 2022- No [id number] 400mg Take 1 Univers (ISENTRESS) 5-08 06-12 tablet by it y of 400 mg 00:00: 00:00 mouth in [place] tablet 00 :00 the Medical morning Branch and 1 tablet in the evening. emtricitabi Yes [id number] Take one Univers ne-tenofovi 4-04 po daily ity of r alafen 00:00: [place] (DESCOVY) 00 Medical tablet Branch emtricitabi Yes [id number] Take one Univers ne-tenofovi 4-04 po daily ity of r alafen 00:00: [place] (DESCOVY) 00 Medical tablet Branch emtricitabi 2022- No [id number] Take one Univers ne-tenofovi 4-04 05-08 po daily ity of r alafen 00:00: 00:00 [place] (DESCOVY) 00 :00 Medical tablet Branch potassium 2021-05- No 10meq 10 mEq, IV Univers chloride in 2-19 12-19 Piggyback, i ty of water 10 20:00: 22:00 ONCE, 1 [place] mEq/100 mL 00 :00 dose, On Medic al RTU 10 mEq [facility] 05/10/22 at 1400, Administer over 60 Minutes, 100 mL magnesium 2021-05 No 800mg 800 mg, Uni vers oxide 07-11 Oral, ity of (MAG-OX 20:00: 19:37 ONCE, 1 [place] 400) tablet 00 :00 dose, On Medi porfirio 800 mg [facility] 05/10/22 at 1400, Routine KCL 2021-05 No 40meq 40 mEq, Univers (KLOR-CON 07-11 Oral, ity of M20) tablet 19:15: 19:37 [place]CE, 1 [place] 40 mEq 00 :00 dose, On Medical [facility] 05/10/22 at 1315, JOE [...] Medical Infusion, Branch ONCE, 1 dose, On [facility] 05/10/22 at 1145, JOE cefpodoxime 2021-05- No [id number] 100mg Take 1 Univers 100 mg 2-17 12-25 tablet by ity of tablet 00:00: 05:59 mouth in [place] 00 :00 the [facility] and 1 tablet in the evening. Do all this for 7 days. cefpodoxime 2021-05- No [id number] 100mg Take 1 Univers 100 mg 2-17 12-25 tablet by ity of tablet 00:00: 05:59 mouth in [place] 00 :00 the [facility] and 1 tablet in the evening. Do all this for 7 days. cefpodoxime 2021-05- No [id number] 100mg Take 1 Univers 100 mg 2-17 12-25 tablet by ity of tablet 00:00: 05:59 mouth in [place] 00 :00 the Medical morning Branch and [...] :00 dose, On Medi porfirio mg [place] 05/06/22 at 1515, JOE ondansetron 2021-05 Yes [id number] 1-2 U nivers 4 mg tablet 2-15 tablets ity o f 00:00: every 8 [place] 00 hours as Medical needed for Branch nausea benzonatate 2021-05 Yes [id number] 200mg Take 1 Univers 200 mg 2-15 capsule by ity of capsule 00:00: mouth 3 [place] 00 (three) Medical times Branch daily as needed for Cough. albuterol 2021-05 Yes [id number] 2{puff} Inhale 2 Univers 90 2-15 Puffs ity of mcg/actuati 00:00: every 4 [place] on inhaler 00 (four) Medical hours as Branch needed for Wheezing or Shortness of Breath. butalbital- 2021-05 Yes [id number] 1{tbl} Take 1 Univers acetaminoph 2-15 tablet by ity of en-caff 00:00: mouth [place] 50-325-40 00 every 4 Medical mg tablet (four) Branch hours as needed (headache) . ondansetron 2021-05 Yes [id number] 1-2 U nivers 4 mg tablet 2-15 tablets ity o f 00:00: every 8 [place] 00 hours as Medical needed for Branch nausea benzonatate 2021-05 Yes [id number] 200mg Take 1 Univers 200 mg 2-15 capsule by ity of capsule 00:00: mouth 3 [place] 00 (three) Medical times Branch daily as needed for Cough. albuterol 2021-05 Yes [id number] 2{puff} Inhale 2 Univers 90 2-15 Puffs ity of mcg/actuati 00:00: every 4 [place] on inhaler 00 (four) Medical hours as Branch needed for Wheezing or Shortness of Breath. butalbital- 2021-05 Yes [id number] 1{tbl} Take 1 Univers acetaminoph 2-15 tablet by ity of en-caff 00:00: mouth [place] 50-325-40 00 every 4 Medical mg tablet (four) Branch hours as needed (headache) . ondansetron 2021-05 Yes [id number] 1-2 U nivers 4 mg tablet 2-15 tablets ity o f 00:00: every 8 [place] 00 hours as Medical needed for Branch nausea benzonatate 2021-05 Yes [id number] 200mg Take 1 Univers 200 mg 2-15 capsule by ity of capsule 00:00: mouth 3 [place] 00 (three) Medical times Branch daily as needed for Cough. albuterol 2021-05 Yes [id number] 2{puff} Inhale 2 Univers 90 2-15 Puffs ity of mcg/actuati 00:00: every 4 [place] on inhaler 00 (four) Medical hours as Branch needed for Wheezing or Shortness of Breath. butalbital- 2021-05 Yes [id number] 1{tbl} Take 1 Univers acetaminoph 2-15 tablet by ity of en-caff 00:00: mouth [place] 50-325-40 00 every 4 Medical mg tablet (four) Branch hours as needed (headache) . ondansetron 2021-05 Yes [id number] 1-2 U nivers 4 mg tablet 2-15 tablets ity o f 00:00: every 8 [place] 00 hours as Medical needed for Branch nausea benzonatate 2021-05 Yes [id number] 200mg Take 1 Univers 200 mg 2-15 capsule by ity of capsule 00:00: mouth 3 [place] 00 (three) Medical times Branch daily as needed for Cough. albuterol 2021-05 Yes [id number] 2{puff} Inhale 2 Univers 90 2-15 Puffs ity of mcg/actuati 00:00: every 4 [place] on inhaler 00 (four) Medical hours as Branch needed for Wheezing or Shortness of Breath. butalbital2021-05 Yes [id number] 1{tbl} Take 1 Univers acetaminoph 2-15 tablet by ity of en-caff 00:00: mouth [place] 50-325-40 00 every 4 Medical mg tablet (four) Branch hours as needed (headache) . ondansetron 2021-05 Yes [id number] 1-2 U nivers 4 mg tablet 2-15 tablets ity o f 00:00: every 8 [place] 00 hours as Medical needed for Branch nausea benzonatate 2021-05 Yes [id number] 200mg Take 1 Univers 200 mg 2-15 capsule by ity of capsule 00:00: mouth 3 [place] 00 (three) Medical times Branch daily as needed for Cough. albuterol 2021-05 Yes [id number] 2{puff} Inhale 2 Univers 90 2-15 Puffs ity of mcg/actuati 00:00: every 4 [place] on inhaler 00 (four) Medical hours as Branch needed for Wheezing or Shortness of Breath. butalbital- 2021-05 Yes [id number] 1{tbl} Take 1 Univers acetaminoph 2-15 tablet by ity of en-caff 00:00: mouth [place] 50-325-40 00 every 4 Medical mg tablet (four) Branch hours as needed (headache) . ondansetron 2021-05 Yes [id number] 1-2 U nivers 4 mg tablet 2-15 tablets ity o f 00:00: every 8 [place] 00 hours as Medical needed for Branch nausea benzonatate 2021-05 Yes [id number] 200mg Take 1 Univers 200 mg 2-15 capsule by ity of capsule 00:00: mouth 3 [place] 00 (three) Medical times Branch daily as needed for Cough. albuterol 2021-05 Yes [id number] 2{puff} Inhale 2 Univers 90 2-15 Puffs ity of mcg/actuati 00:00: every 4 [place] on inhaler 00 (four) Medical hours as Branch needed for Wheezing or Shortness of Breath. butalbital- 2021-05 Yes [id number] 1{tbl} Take 1 Univers acetaminoph 2-15 tablet by ity of en-caff 00:00: mouth [place] 50-325-40 00 every 4 Medical mg tablet (four) Branch hours as needed (headache) . ondansetron 2021-05 Yes [id number] 1-2 U nivers 4 mg tablet 2-15 tablets ity o f 00:00: every 8 [place] 00 hours as Medical needed for Branch nausea benzonatate 2021-05 Yes [id number] 200mg Take 1 Univers 200 mg 2-15 capsule by ity of capsule 00:00: mouth 3 [place] 00 (three) Medical times Branch daily as needed for Cough. albuterol 2021-05 Yes [id number] 2{puff} Inhale 2 Univers 90 2-15 Puffs ity of mcg/actuati 00:00: every 4 [place] on inhaler 00 (four) Medical hours as Branch needed for Wheezing or Shortness of Breath. butalbital- 2021-05 Yes [id number] 1{tbl} Take 1 Univers acetaminoph 2-15 tablet by ity of en-caff 00:00: mouth [place] 50-325-40 00 every 4 Medical mg tablet (four) Branch hours as needed (headache) . ondansetron 2021-05 Yes [id number] 1-2 U nivers 4 mg tablet 2-15 tablets ity o f 00:00: every 8 [place] 00 hours as Medical needed for Branch nausea benzonatate 2021-05 Yes [id number] 200mg Take 1 Univers 200 mg 2-15 capsule by ity of capsule 00:00: mouth 3 [place] 00 (three) Medical times Branch daily as needed for Cough. albuterol 2021-05 Yes [id number] 2{puff} Inhale 2 Univers 90 2-15 Puffs ity of mcg/actuati 00:00: every 4 [place] on inhaler 00 (four) Medical hours as Branch needed for Wheezing or Shortness of Breath. butalbital- 2021-05 Yes [id number] 1{tbl} Take 1 Univers acetaminoph 2-15 tablet by ity of en-caff 00:00: mouth [place] 50-325-40 00 every 4 Medical mg tablet (four) Branch hours as needed (headache) . ondansetron 2021-05 Yes [id number] 1-2 U nivers 4 mg tablet 2-15 tablets ity o f 00:00: every 8 [place] 00 hours as Medical needed for Branch nausea benzonatate 2021-05 Yes [id number] 200mg Take 1 Univers 200 mg 2-15 capsule by ity of capsule 00:00: mouth 3 [place] 00 (three) Medical times Branch daily as needed for Cough. albuterol 2021-05 Yes [id number] 2{puff} Inhale 2 Univers 90 2-15 Puffs ity of mcg/actuati 00:00: every 4 [place] as on inhaler 00 (four) Medical hours as Branch needed for Wheezing or Shortness of Breath. butalbital- 2021-05 Yes [id number] 1{tbl} Take 1 Univers acetaminoph 2-15 tablet by ity of en-caff 00:00: mouth [place] 50-325-40 00 every 4 Medical mg tablet (four) Branch hours as needed (headache) . ondansetron 2021-05 Yes [id number] 1-2 U nivers 4 mg tablet 2-15 tablets ity o f 00:00: every 8 [place] 00 hours as Medical needed for Branch nausea benzonatate 2021-05 Yes [id number] 200mg Take 1 Univers 200 mg 2-15 capsule by ity of capsule 00:00: mouth 3 [place] 00 (three) Medical times Branch daily as needed for Cough. albuterol 2021-05 Yes [id number] 2{puff} Inhale 2 Univers 90 2-15 Puffs ity of mcg/actuati 00:00: every 4 [place] on inhaler 00 (four) Medical hours as Branch needed for Wheezing or Shortness of Breath. butalbital- 2021-05 Yes [id number] 1{tbl} Take 1 Univers acetaminoph 2-15 tablet by ity of en-caff 00:00: mouth [place] 50-325-40 00 every 4 Medical mg tablet (four) Branch hours as needed (headache) . [facility] 2021-05- No [id number] 2{tbl} Take 2 Univers r-ritonavir 2-15 12-21 tablets by i ty of (PAXLOVID, 00:00: 05:59 mouth in [place] EUA,) 300 00 :00 the Medical mg (150 mg morning Branch x 2)-100 mg and 2 tablet tablets in the evening. Do all this for 5 days. [facility] 2021-05- No [id number] 2{tbl} Take 2 Univers r-ritonavir 2-15 12-21 tablets by i ty of (PAXLOVID, 00:00: 05:59 mouth in [place] EUA,) 300 00 :00 the Medical mg (150 mg morning Branch x 2)-100 mg and 2 tablet tablets in the evening. Do all this for 5 days. [facility] 2021-05- No [id number] 2{tbl} Take 2 Univers r-ritonavir 2-15 12-21 tablets by i ty of (PAXLOVID, 00:00: 05:59 mouth in [place] EUA,) 300 00 :00 the Medical mg (150 mg morning Branch x 2)-100 mg and 2 tablet tablets in the evening. Do all this for 5 days. [facility] 2021-05- No [id number] 2{tbl} Take 2 Univers r-ritonavir 2-15 12-21 tablets by i ty of (PAXLOVID, 00:00: 05:59 mouth in [place] EUA,) 300 00 :00 the Medical mg (150 mg morning Branch x 2)-100 mg and 2 tablet tablets in the evening. Do all this for 5 days. ondansetron 2022-1 2022- No 4mg 4 mg, Univ ers (ZOFRAN-ODT 2-04-22 Oral, ity of ) 22:45: 21:53 ONCE, 1 [place] disintegrat 00 :00 dose, On Medi porfirio ing tablet [place] Branch 4 mg 04/22/22 at 1645, Routine amoxicillin 2021-05 Yes [id number] 1{tbl} Take 1 Univers -clavulanat 2-01 [id number] tablet by i ty of e 875-125 00:00: mouth [place] mg per 00 every 12 Medical tablet (twelve) Branch hours. ondansetron 2021-05 Yes [id number] 4mg Take 1 Univers 4 mg 2- [id number] tablet by ity of disintegrat 00:00: mouth [place] ing tablet 00 every 8 Medica l (eight) Branch hours as needed for Nausea and Vomiting (N/V). amoxicillin 2021-05 Yes [id number] 1{tbl} Take 1 Univers -clavulanat 2- [id number] tablet by i ty of e 875-125 00:00: mouth [place] mg per 00 every 12 Medical tablet (twelve) Branch hours. ondansetron 2021-05 Yes [id number] 4mg Take 1 Univers 4 mg 2- [id number] tablet by ity of disintegrat 00:00: mouth [place] ing tablet 00 every 8 Medica l (eight) Branch hours as needed for Nausea and Vomiting (N/V). amoxicillin 2021-05 Yes [id number] 1{tbl} Take 1 Univers -clavulanat 2-01 [id number] tablet by i ty of e 875-125 00:00: mouth [place] mg per 00 every 12 Medical tablet (twelve) Branch hours. ondansetron 2021-05 Yes [id number] 4mg Take 1 Univers 4 mg 2-01 [id number] tablet by ity of disintegrat 00:00: mouth [place] ing tablet 00 every 8 Medica l (eight) Branch hours as needed for Nausea and Vomiting (N/V). amoxicillin 2021-05 Yes [id number] 1{tbl} Take 1 Univers -clavulanat 2-01 [id number] tablet by i ty of e 875-125 00:00: mouth [place] mg per 00 every 12 Medical tablet (twelve) Branch hours. ondansetron 2021-05 Yes [id number] 4mg Take 1 Univers 4 mg 2-01 [id number] tablet by ity of disintegrat 00:00: mouth [place] ing tablet 00 every 8 Medica l (eight) Branch hours as needed for Nausea and Vomiting (N/V). amoxicillin 2021-05 Yes [id number] 1{tbl} Take 1 Univers -clavulanat 2-01 [id number] tablet by i ty of e 875-125 00:00: mouth [place] mg per 00 every 12 Medical tablet (twelve) Branch hours. ondansetron 2021-05 Yes [id number] 4mg Take 1 Univers 4 mg 2- [id number] tablet by ity of disintegrat 00:00: mouth [place] ing tablet 00 every 8 Medica l (eight) Branch hours as needed for Nausea and Vomiting (N/V). amoxicillin 2021-05 Yes [id number] 1{tbl} Take 1 Univers -clavulanat 2- [id number] tablet by i ty of e 875-125 00:00: mouth [place] mg per 00 every 12 Medical tablet (twelve) Branch hours. ondansetron 2021-05 Yes [id number] 4mg Take 1 Univers 4 mg 2- [id number] tablet by ity of disintegrat 00:00: mouth [place] ing tablet 00 every 8 Medica l (eight) Branch hours as needed for Nausea and Vomiting (N/V). amoxicillin 2021-05 Yes [id number] 1{tbl} Take 1 Univers -clavulanat 2- [id number] tablet by i ty of e 875-125 00:00: mouth [place] mg per 00 every 12 Medical tablet (twelve) Branch hours. ondansetron 2021-05 Yes [id number] 4mg Take 1 Univers 4 mg 2- [id number] tablet by ity of disintegrat 00:00: mouth [place] ing tablet 00 every 8 Medica l (eight) Branch hours as needed for Nausea and Vomiting (N/V). amoxicillin 2021-05 Yes [id number] 1{tbl} Take 1 Univers -clavulanat 2-01 [id number] tablet by i ty of e 875-125 00:00: mouth [place] mg per 00 every 12 Medical tablet (twelve) Branch hours. ondansetron 2021-05 Yes [id number] 4mg Take 1 Univers 4 mg 2- [id number] tablet by ity of disintegrat 00:00: mouth [place] ing tablet 00 every 8 Medica l (eight) Branch hours as needed for Nausea and Vomiting (N/V). amoxicillin 2021-05 Yes [id number] 1{tbl} Take 1 Univers -clavulanat 2-01 [id number] tablet by i ty of e 875-125 00:00: mouth [place] mg per 00 every 12 Medical tablet (twelve) Branch hours. ondansetron 2021-05 Yes [id number] 4mg Take 1 Univers 4 mg 2-01 [id number] tablet by ity of disintegrat 00:00: mouth [place] ing tablet 00 every 8 Medica l (eight) Branch hours as needed for Nausea and Vomiting (N/V). amoxicillin 2021-05 Yes [id number] 1{tbl} Take 1 Univers -clavulanat 2-01 [id number] tablet by i ty of e 875-125 00:00: mouth [place] mg per 00 every 12 Medical tablet (twelve) Branch hours. ondansetron 2021-05 Yes [id number] 4mg Take 1 Univers 4 mg 2- 190487 tablet by ity of disintegrat 00:00: mouth [place] ing tablet 00 every 8 Medica l (eight) Branch hours as needed for Nausea and Vomiting (N/V). amoxicillin 2021-05 Yes [id number] 1{tbl} Take 1 Univers -clavulanat 2-01 [id number] tablet by i ty of e 875-125 00:00: mouth [place] mg per 00 every 12 Medical tablet (twelve) Branch hours. ondansetron 2021-05 Yes [id number] 4mg Take 1 Univers 4 mg 2-01 [id number] tablet by ity of disintegrat 00:00: mouth [place] ing tablet 00 every 8 Medica l (eight) Branch hours as needed for Nausea and Vomiting (N/V). amoxicillin 2021-05 Yes [id number] 1{tbl} Take 1 Univers -clavulanat 2-01 [id number] tablet by i ty of e 875-125 00:00: mouth [place] mg per 00 every 12 Medical tablet (twelve) Branch hours. ondansetron 2021-05 Yes [id number] 4mg Take 1 Univers 4 mg 2-01 [id number] tablet by ity of disintegrat 00:00: mouth [place] ing tablet 00 every 8 Medica l (eight) Branch hours as needed for Nausea and Vomiting (N/V). zoster 2021-05- No [id number] .5mL 0.5 mL by Univers vaccine, 0-05 03-15 9104 Intramuscu ity of recombinant 00:00: 04:59 lar route [place] (SHINGRIX, 00 :00 once now Medic al PF,) for 1 Branch injection dose. And repeat in 2-6 months zoster 2021-05- No [id number] .5mL 0.5 mL by Univers vaccine, 0-05 03- 9104 Intramuscu ity of recombinant 00:00: 04:59 lar route [place] (SHINGRIX, 00 :00 once now Medic al PF,) for 1 Branch injection dose. And repeat in 2-6 months zoster 2021-05- No [id number] .5mL 0.5 mL by Univers vaccine, 0-05 [...] 10mg Take 10 mg U nivers (NORVASC) -27 by mouth ity of 10 mg 19:28: daily. [place] tablet 04 Medical Branch clonazePAM 0 Yes 1mg Take 1 mg Un matt (KLONOPIN) 9- by mouth ity o f 1 mg tablet 19:28: at [place] [address] bedtime. Medical Branch traZODone 0 Yes 50mg Take 50 mg Un matt 100 mg 9-27 by mouth ity of tablet 19:28: at [place] [address] bedtime. Medical Branch hydralAZINE 2022-0 Yes 25mg [...] o f 1 mg tablet 19:28: at [place] [address] bedtime. Medical Branch traZODone 2021-0 Yes 50mg Take 50 mg Un matt 100 mg 9-27 by mouth ity of tablet 19:28: at [place] [address] bedtime. Medical Branch hydralAZINE 2021-0 Yes 25mg [...] 100 mg 04 (two) Medical tablet times [place] daily. amLODIPine 2021-0 Yes 10mg Take 10 mg U nivers (NORVASC) 9-27 by mouth ity of 10 mg 19:28: daily. [place] tablet 04 Medical Branch clonazePAM 2021-0 Yes 1mg Take 1 mg Un matt (KLONOPIN) 9-27 by mouth ity o f 1 mg tablet 19:28: at [place] [address] bedtime. Medical Branch traZODone 2-0 Yes 50mg Take 50 mg Un matt 100 mg 9-27 by mouth ity of tablet 19:28: at [place] [address] bedtime. Medical Branch hydralAZINE 2021-0 Yes 25mg [...] 100 mg 04 (two) Medical tablet times [place] daily. amLODIPine 2021-0 Yes 10mg Take 10 mg U nivers (NORVASC) 9-27 by mouth ity of 10 mg 19:28: daily. [place] tablet 04 Medical Branch clonazePAM 2021-0 Yes 1mg Take 1 mg Un matt (KLONOPIN) 9-27 by mouth ity o f 1 mg tablet 19:28: at [place] [address] bedtime. Medical Branch traZODone 2021-0 Yes 50mg Take 50 mg Un matt 100 mg 9-27 by mouth ity of tablet 19:28: at [place] [address] bedtime. Medical Branch hydralAZINE 2021-0 Yes 25mg [...] o f 1 mg tablet 19:28: at [place] [address] bedtime. Medical Branch traZODone 2022-0 Yes 50mg Take 50 mg Un matt 100 mg 9-27 by mouth ity of tablet 19:28: at [place] [address] bedtime. Medical Branch hydralAZINE 2-0 Yes 25mg [...] o f 1 mg tablet 19:28: at [place] [address] bedtime. Medical Branch traZODone 2-0 Yes 50mg Take 50 mg Un matt 100 mg 9-27 by mouth ity of tablet 19:28: at [place] [address] bedtime. Medical Branch hydralAZINE 2-0 Yes 25mg [...] o f 1 mg tablet 19:28: at [place] [address] bedtime. Medical Branch traZODone 2021-0 Yes 50mg Take 50 mg Un matt 100 mg 9-27 by mouth ity of tablet 19:28: at [place] [address] bedtime. Medical Branch hydralAZINE 2021-0 Yes 25mg [...] o f 1 mg tablet 19:28: at [place] [address] bedtime. Medical Branch traZODone 2021-0 Yes 50mg Take 50 mg Un matt 100 mg 9-27 by mouth ity of tablet 19:28: at [place] [address] bedtime. Medical Branch hydralAZINE 2021-0 Yes 25mg [...] o f 1 mg tablet 19:28: at [place] [address] bedtime. Medical Branch traZODone 2021-0 Yes 50mg Take 50 mg Un matt 100 mg 9-27 by mouth ity of tablet 19:28: at [place] [address] bedtime. Medical Branch hydralAZINE 2021-0 Yes 25mg [...] o f 1 mg tablet 19:28: at [place] [address] bedtime. Medical Branch traZODone 2021-0 Yes 50mg Take 50 mg Un matt 100 mg 9-27 by mouth ity of tablet 19:28: at [place] [address] bedtime. Medical Branch hydralAZINE 2021-0 Yes 25mg [...] o f 1 mg tablet 19:28: at [place] [address] bedtime. Medical Branch traZODone 2021-0 Yes 50mg Take 50 mg Un matt 100 mg 9-27 by mouth ity of tablet 19:28: at [place] [address] bedtime. Medical Branch hydralAZINE 2021-0 Yes 25mg [...] 100 mg 04 (two) Medical tablet times [place] daily. amLODIPine 2021-0 Yes 10mg Take 10 mg U nivers (NORVASC) 9-27 by mouth ity of 10 mg 19:28: daily. [place] tablet 04 Medical Branch clonazePAM 2021-0 Yes 1mg Take 1 mg Un matt (KLONOPIN) 9-27 by mouth ity o f 1 mg tablet 19:28: at [place] [address] bedtime. Medical Branch traZODone 2021-0 Yes 50mg Take 50 mg Un matt 100 mg 9-27 by mouth ity of tablet 19:28: at [place] [address] bedtime. Medical Branch hydralAZINE 2021-0 Yes 25mg [...] o f 1 mg tablet 19:28: at [place] [address] bedtime. Medical Branch traZODone 2021-0 Yes 50mg Take 50 mg Un matt 100 mg 9-27 by mouth ity of tablet 19:28: at [place] [address] bedtime. Medical Branch hydralAZINE 2021-0 Yes 25mg [...] 100 mg 04 (two) Medical tablet times [place] daily. amLODIPine 2-0 Yes 10mg Take 10 mg U nivers (NORVASC) 9-27 by mouth ity of 10 mg 19:28: daily. [place] tablet 04 Medical Branch clonazePAM 2021-0 Yes 1mg Take 1 mg Un matt (KLONOPIN) 9-27 by mouth ity o f 1 mg tablet 19:28: at [place] [address] bedtime. Medical Branch traZODone 2-0 Yes 50mg Take 50 mg Un matt 100 mg 9-27 by mouth ity of tablet 19:28: at [place] [address] bedtime. Medical Branch hydralAZINE 2-0 Yes 25mg [...] by ity of (LOPRESSOR) 19:28: mouth 2 [place] 100 mg 04 (two) Medical tablet times Branch daily. amLODIPine 2-0 Yes 10mg Take 10 mg U nivers (NORVASC) 9-27 by mouth ity of 10 mg 19:28: daily. [place] tablet 04 Medical Branch clonazePAM 2021-0 Yes 1mg Take 1 mg Un matt (KLONOPIN) 9-27 by mouth ity o f 1 mg tablet 19:28: at [place] [address] bedtime. Medical Branch traZODone 2021-0 Yes 50mg Take 50 mg Un matt 100 mg 9-27 by mouth ity of tablet 19:28: at [place] [address] bedtime. Medical Branch hydralAZINE 2021-0 Yes 25mg [...] o f 1 mg tablet 19:28: at [place] [address] bedtime. Medical Branch traZODone 2-0 Yes 50mg Take 50 mg Un matt 100 mg 9-27 by mouth ity of tablet 19:28: at [place] [address] bedtime. Medical Branch hydralAZINE 2022-0 Yes 25mg [...] o f 1 mg tablet 19:28: at [place] [address] bedtime. Medical Branch traZODone 2021-0 Yes 50mg Take 50 mg Un matt 100 mg 9-27 by mouth ity of tablet 19:28: at [place] [address] bedtime. Medical Branch hydralAZINE 2021-0 Yes 25mg [...] o f 1 mg tablet 19:28: at [place] [address] bedtime. Medical Branch traZODone 2-0 Yes 50mg Take 50 mg Un matt 100 mg 9-27 by mouth ity of tablet 19:28: at [place] [address] bedtime. Medical Branch hydralAZINE 2021-0 Yes 25mg [...] 100 mg 04 (two) Medical tablet times [place] daily. amLODIPine 2021-0 Yes 10mg Take 10 mg U nivers (NORVASC) 9-27 by mouth ity of 10 mg 19:28: daily. [place] tablet 04 Medical Branch clonazePAM 2021-0 Yes 1mg Take 1 mg Un matt (KLONOPIN) 9-27 by mouth ity o f 1 mg tablet 19:28: at [place] [address] bedtime. Medical Branch traZODone 2021-0 Yes 50mg Take 50 mg Un matt 100 mg 9-27 by mouth ity of tablet 19:28: at [place] [address] bedtime. Medical Branch hydralAZINE 2021-0 Yes 25mg [...] o f 1 mg tablet 19:28: at [place] [address] bedtime. Medical Branch traZODone Yes 50mg Take 50 mg Un matt 100 mg 02-16 by mouth ity of tablet 19:28: at [place] [address] bedtime. [facility] Branch cefpodoxime 2021- No [id number] 200mg Take 1 Univers 200 mg 02-16 tablet by ity of tablet 00:00: 04:59 mouth in [place] 00 :00 the [facility] morning Branch and 1 tablet in the evening. Do all this for 3 days. cefpodoxime 0 2021- No [id number] 200mg Take 1 Univers 200 mg 02-16 tablet by ity of tablet 00:00: 04:59 mouth in [place] 00 :00 the [facility] and 1 tablet in the evening. Do all this for 3 days. haloperidol 2021- No 2mg 2 mg, Slow Univers lactate 02-15 IV Push, ity of (HALDOL) 09:00: 09:12 ONCE, 1 [place] injection 2 00 :00 dose, On Medi porfirio mg [facility] 02/15/22 at 0400, Routine hydroCHLORO Yes 25mg 25 mg, Univ ers thiazide 9-25 Oral, ity of (ESIDRIX) 14:00: DAILY, [place] capsule 25 00 First dose Med ical mg on [place] Branch 02/14/22 at 0900, Until Discontinu ed, Routine butalbital- Yes 1{tbl} 1 tablet, Univers acetaminoph 02-13 Oral, ity of en-caff 18:46: Q6HPRN, [place] (ESGIC) 06 Starting Medical 50-325-40 on Sat Branch mg tablet 1 02/13/22 at tablet 1346, Until Discontinu ed, Routine, headaches dicyclomine Yes 10mg 10 mg, Univ ers (BENTYL) 9-24 Oral, QID, ity o f capsule 10 17:00: First dose [place] mg 00 on Sat Medical 02/13/22 at Branch 1200, Until Discontinu ed, Routine tiZANidine 0 Yes 4mg 4 mg, Univer s (ZANAFLEX) 9-23 Oral, Q8H, ity of tablet 4 mg 19:00: First dose [place] 00 on Tue Medical 02/12/22 at Branch 1400, Until Discontinu [...] 2,000 mg in 17:00: 18:24 Piggyback, [place] NaCl 0.9% 00 :00 Q24H ABX, [...] (MYCOLOG) 19:00: dose on [place] cream 00 [place] [facility] 02/11/22 at Branch 1400, Until Discontinu ed, Routine busPIRone 0 Yes 30mg 30 mg, Univer s (BUSPAR) 02-11 Oral, BID, ity o f tablet 30 18:00: First dose [place] mg 00 on [facility] 02/11/22 at Branch 1300, Until Discontinu ed, Routine raltegravir 0 Yes 400mg 400 mg, Un matt (ISENTRESS) 02-11 Oral, BID, it y of tablet 400 18:00: First dose [place] mg 00 on [facility] 02/11/22 at Branch 1300, Until Discontinu [...] [place] tablet [address] [facility] Medical mg 02/11/22 at Branch 1300, Until Discontinu ed, Routine emtricitabi 0 Yes 1{tbl} 1 tablet, [facility] ne-tenofovi 02-11 Oral, ity of r alafen 18:00: DAILY, [place] (DESCOVY) 00 First dose Medi porfirio tablet 1 on [facility] tablet 02/11/22 at 1300, Until Discontinu ed, Routine ipratropium 0 Yes .5mg 0.5 mg, Uni vers (ATROVENT) 02-11 Inhalation ity of 0.02 % 17:57: , QIDPRN, [place] nebulizer 10 Starting Medica l solution on [facility] 0.5 mg 02/11/22 at 1257, [...] No 25mg 25 mg, Uni vers (APRESOLINE 02-11-23 Oral, ity of ) tablet 25 17:30: [...] ity of (TYLENOL 14:06: 17:37 Q6HPN, [place] #3) 300-30 19 :24 Starting Medic al mg tablet 1 on [facility] tablet 02/11/22 at 0906, Until Tue02/12/22 at 1237, Routine, Pain (scale 4-6) sennosides- Yes 1{tbl} 1 tablet, Univers docusate 02-11 Oral, ity of sodium 14:06: QDAILYPRN [place] (SENOKOT-S) 09 Starting Medi porfirio 8.6-50 mg on [facility] per tablet 02/11/22 at 1 tablet 0906, Until Discontinu ed, Routine, Constipati on ondansetron Yes 4mg 4 mg, Slow Univers (ZOFRAN 02-11 IV Push, ity of (PF)) 14:05: Q6HPRN, [place] injection 4 59 Starting Medi porfirio mg on [facility] Branch 02/11/22 at 0905, Until Discontinu ed, Routine, Nausea and Vomiting (N/V) acetaminoph Yes 650mg 650 mg, Un matt en 02-11 Oral, ity of (TYLENOL) 14:04: Q6HPRN, [place] tablet 650 37 Starting Medic al mg on [facility] Branch 02/11/22 at 0904, Until Discontinu ed, [...] ity of ) 25 mg 09:10: daily. [address] Branch amLODIPine Yes 10mg Take 10 mg U nivers (NORVASC) 02-11 by mouth ity of 10 mg 09:10: daily. [address] Branch piperacilli 2021- No 3.375g 3.375 g, [...] of therapy: 72 hours iopamidol 2021- No [id number] 60mL 60 mL, Univers (ISOVUE 02-11 Intravenou [...] [place] [facility] 02/11/22 at 0300, STAT ondansetron 0 2021- No 4mg 4 mg, Slow Univers (ZOFRAN 02-11 IV Push, ity of (PF)) 07:45: 07:49 ONCE, 1 [place] injection 4 00 :00 dose, On Medi porfirio mg [place] [facility] 02/11/22 at 0300, JOE ondansetron 0 2021- No 4mg 4 mg, Slow Univers [...] 02/11/22 at 0015, JOE emtricitabi 0 Yes [id number] Take one Univers ne-tenofovi 9-12 po daily ity of r alafen 00:00: [place] (DESCOVY) 00 Medical tablet Branch emtricitabi Yes [id number] Take one Univers ne-tenofovi 9-12 po daily ity of r alafen 00:00: [place] (DESCOVY) 00 Medical tablet Branch emtricitabi Yes [id number] Take one Univers ne-tenofovi 9-12 po daily ity of r alafen 00:00: [place] (DESCOVY) 00 Medical tablet Branch emtricitabi 0 Yes [id number] Take one Univers ne-tenofovi 9-12 po daily ity of r alafen 00:00: [place] (DESCOVY) 00 Medical tablet Branch emtricitabi Yes [id number] Take one Univers ne-tenofovi 9-12 po daily ity of r alafen 00:00: [place] (DESCOVY) 00 Medical tablet Branch emtricitabi Yes [id number] Take one Univers ne-tenofovi 9-12 po daily ity of r alafen 00:00: [place] (DESCOVY) 00 Medical tablet Branch emtricita Yes [id number] Take one Univers ne-tenofovi 9-12 po daily ity of r alafen 00:00: [place] (DESCOVY) 00 Medical tablet Branch emtricitabi Yes [id number] Take one Univers ne-tenofovi 9-12 po daily ity of r alafen 00:00: [place] (DESCOVY) 00 Medical tablet Branch emtricita Yes [id number] Take one Univers ne-tenofovi 9-12 po daily ity of r alafen 00:00: [place] (DESCOVY) 00 Medical tablet Branch emtricita Yes [id number] Take one Univers ne-tenofovi 9-12 po daily ity of r alafen 00:00: [place] (DESCOVY) 00 Medical tablet Branch emtricita Yes [id number] Take one Univers ne-tenofovi 9-12 po daily ity of r alafen 00:00: [place] (DESCOVY) 00 Medical tablet Branch emtricita Yes [id number] Take one Univers ne-tenofovi 9-12 po daily ity of r alafen 00:00: [place] (DESCOVY) 00 Medical tablet Branch emtricita Yes [id number] Take one Univers ne-tenofovi 9-12 po daily ity of r alafen 00:00: [place] (DESCOVY) 00 Medical tablet Branch emtricita Yes [id number] Take one Univers ne-tenofovi 9-12 po daily ity of r alafen 00:00: [place] (DESCOVY) 00 Medical tablet Branch emtricita Yes [id number] Take one Univers ne-tenofovi 9-12 po daily ity of r alafen 00:00: [place] (DESCOVY) 00 Medical tablet Branch emtricitabi Yes [id number] Take one Univers ne-tenofovi 9-12 po daily ity of r alafen 00:00: [place] (DESCOVY) 00 Medical tablet Branch emtricita Yes [id number] Take one Univers ne-tenofovi 9-12 po daily ity of r alafen 00:00: [place] (DESCOVY) 00 Medical tablet Branch emtricitabi 2021-0 3- No [id number] Take one Univers ne-tenofovi 02-01 po daily ity of r alafen 00:00: 00:00 [place] (DESCOVY) 00 :00 Medical tablet Branch emtricitabi 2021-0 3- No [id number] Take one Univers ne-tenofovi 02-01 po daily ity of r alafen 00:00: 00:00 [place] (DESCOVY) 00 :00 Medical tablet Branch naproxen 2021-0 Yes [id number] 500mg Take 1 U nivers (NAPROSYN) 7-24 tablet by ity of 500 mg 00:00: mouth in [place] tablet 00 the Medical morning Branch and 1 tablet in the evening. Take with meals. methocarbam 2021-0 Yes [id number] 500mg Take 1 Univers oL 500 mg 7-24 tablet by ity o f tablet 00:00: mouth 4 [place] ([facility]) Medical times [place] daily. naproxen 2021-0 Yes [id number] 500mg Take 1 U nivers (NAPROSYN) 7-24 tablet by ity of 500 mg 00:00: mouth in [place] tablet 00 the Medical morning Branch and 1 tablet in the evening. Take with meals. methocarbam 2-0 Yes [id number] 500mg Take 1 Univers oL 500 mg 7-24 tablet by ity o f tablet 00:00: mouth 4 [place] ([facility]) Medical times Branch daily. naproxen 2-0 Yes [id number] 500mg Take 1 U nivers (NAPROSYN) 7-24 tablet by ity of 500 mg 00:00: mouth in [place] tablet 00 the Medical morning Branch and 1 tablet in the evening. Take with meals. methocarbam 2-0 Yes [id number] 500mg Take 1 Univers oL 500 mg 7-24 tablet by ity o f tablet 00:00: mouth 4 [place] ([facility]) Medical times [place] daily. naproxen 2-0 2022- No [id number] 500mg Take 1 Univers (NAPROSYN) 7-24 10-14 tablet by ity of 500 mg 00:00: 00:00 mouth in [place] tablet 00 :00 the Medical morning Branch and 1 tablet in the evening. Take with meals. methocarbam 2021- No [id number] 500mg Take 1 Univers oL 500 mg 12-13-14 tablet by ity of tablet 00:00: 00:00 mouth 4 [place] 00 :00 (four) Medical times [place] daily. naproxen 2021- No [id number] 500mg Take 1 Univers (NAPROSYN) 12-13 10-14 tablet by ity of 500 mg 00:00: 00:00 mouth in [place] tablet 00 :00 the Medical morning Branch and 1 tablet in the evening. Take with meals. methocarbam 2021- No [id number] 500mg Take 1 Univers oL 500 mg 12-13-14 tablet by ity of tablet 00:00: 00:00 mouth 4 [place] 00 :00 (four) Medical times [place] daily. esomeprazol 2021- No 40mg Take 40 mg Univers e (NEXIUM) 11-20 by mouth 2 it y of 40 mg 09:12: 00:00 (two) [place] capsule 03 :00 times Medical daily. Branch amiodarone 2021- No 100mg Take 100 U nivers 100 mg 11-20 mg by ity of tablet 09:11: 00:00 mouth [place] 57 :00 daily. Medical Branch apixaban 2021- No 5mg Take 5 mg Uni vers (ELIQUIS) 5 11-20 by mouth 2 i ty of mg tablet 09:11: 00:00 (two) [place] 35 :00 times Medical daily. Branch traZODONE 2021- No Take by [facility] ers (DESYREL) 11-20 mouth at ity o f 10 mg/mL 09:10: 00:00 bedtime. [place] oral 28 :00 Medical suspension Branch hydralAZINE Yes 25mg Take 25 mg Univers (APRESOLINE 11-20 by mouth ity of ) 25 mg 08:47: daily. [place] tablet 47 Medical Branch cephALEXin 2021- No [id number] 500mg Take 1 Univers (KEFLEX) 10-24 capsule by ity of 500 mg 00:00: 00:00 mouth 4 [place] capsule 00 :00 (four) Medical times [place] daily. acetaminoph 2021- No [id number] 1{tbl} Take 1 U nivers en-codeine 6-08 27- tablet by ity of (TYLENOL-CO 00:00: 00:00 mouth [place] DEINE #3) 00 :00 every 4 Medical 300-30 mg (four) Branch tablet hours as needed for Pain (scale 7-10). Indication s: acute pain buPROPion 2021-0 Yes [id number] 150mg Take 1 U nivers XL 4-12 tablet by ity of (WELLBUTRIN 00:00: mouth [place] XL) 150 mg 00 daily. Medical 24 hr Branch tablet busPIRone 2021-0 Yes [id number] 30mg Take 1 Un matt 30 mg 4-12 tablet by ity of tablet 00:00: mouth 2 [place] 00 (two) Medical times Branch daily. SERTraline Yes [id number] 200mg Take 2 Univers 100 mg 4-12 tablets by ity of tablet 00:00: mouth [place] 00 daily. Medical Branch buPROPion 0 Yes [id number] 150mg Take 1 U nivers XL 4-12 tablet by ity of (WELLBUTRIN 00:00: mouth [place] XL) 150 mg 00 daily. Medical 24 hr Branch tablet busPIRone 2021-0 Yes [id number] 30mg Take 1 Un matt 30 mg 4-12 tablet by ity of tablet 00:00: mouth 2 [place] 00 (two) Medical times Branch daily. SERTraline 2021-0 Yes [id number] 200mg Take 2 Univers 100 mg 4-12 tablets by ity of tablet 00:00: mouth [place] 00 daily. Medical Branch buPROPion 0 Yes [id number] 150mg Take 1 U nivers XL 4-12 tablet by ity of (WELLBUTRIN 00:00: mouth [place] XL) 150 mg 00 daily. Medical 24 hr Branch tablet busPIRone 2021-0 Yes [id number] 30mg Take 1 Un matt 30 mg 4-12 tablet by ity of tablet 00:00: mouth 2 [place] 00 (two) Medical times Branch daily. SERTraline 2021-0 Yes [id number] 200mg Take 2 Univers 100 mg 4-12 tablets by ity of tablet 00:00: mouth [place] 00 daily. Medical Branch buPROPion 2021-0 Yes [id number] 150mg Take 1 U nivers XL 4-12 tablet by ity of (WELLBUTRIN 00:00: mouth [place] XL) 150 mg 00 daily. Medical 24 hr Branch tablet busPIRone 2021-0 Yes [id number] 30mg Take 1 Un matt 30 mg 4-12 tablet by ity of tablet 00:00: mouth 2 (two) Medical times Branch daily. SERTraline 2021-0 Yes [id number] 200mg Take 2 Univers 100 mg 4-12 tablets by ity of tablet 00:00: mouth [place] 00 daily. Medical Branch buPROPion 2021-0 Yes [id number] 150mg Take 1 U nivers XL 4-12 tablet by ity of (WELLBUTRIN 00:00: mouth [place] XL) 150 mg 00 daily. Medical 24 hr Branch tablet busPIRone 2021-0 Yes [id number] 30mg Take 1 Un matt 30 mg 4-12 tablet by ity of tablet 00:00: mouth 2 (two) Medical times Branch daily. SERTraline 2021-0 Yes [id number] 200mg Take 2 Univers 100 mg 4-12 tablets by ity of tablet 00:00: mouth [place] 00 daily. Medical Branch buPROPion 2021-0 Yes [id number] 150mg Take 1 U nivers XL 4-12 tablet by ity of (WELLBUTRIN 00:00: mouth [place] XL) 150 mg 00 daily. Medical 24 hr Branch tablet busPIRone 2021-0 Yes [id number] 30mg Take 1 Un matt 30 mg 4-12 tablet by ity of tablet 00:00: mouth 2 (two) Medical times Branch daily. SERTraline 2021-0 Yes [id number] 200mg Take 2 Univers 100 mg 4-12 tablets by ity of tablet 00:00: mouth [place] 00 daily. Medical Branch buPROPion 2021-0 Yes [id number] 150mg Take 1 U nivers XL 4-12 tablet by ity of (WELLBUTRIN 00:00: mouth [place] XL) 150 mg 00 daily. Medical 24 hr Branch tablet busPIRone 2021-0 Yes [id number] 30mg Take 1 Un matt 30 mg 4-12 tablet by ity of tablet 00:00: mouth 2 (two) Medical times Branch daily. SERTraline 2021-0 Yes [id number] 200mg Take 2 Univers 100 mg 4-12 tablets by ity of tablet 00:00: mouth [place] 00 daily. Medical Branch buPROPion 2021-0 Yes [id number] 150mg Take 1 U nivers XL 4-12 tablet by ity of (WELLBUTRIN 00:00: mouth [place] XL) 150 mg 00 daily. Medical 24 hr Branch tablet busPIRone 2021-0 Yes [id number] 30mg Take 1 Un matt 30 mg 4-12 tablet by ity of tablet 00:00: mouth 2 [place] 00 (two) Medical times Branch daily. SERTraline 2021-0 Yes [id number] 200mg Take 2 Univers 100 mg 4-12 tablets by ity of tablet 00:00: mouth [place] 00 daily. Medical Branch buPROPion 0 Yes [id number] 150mg Take 1 U nivers XL 4-12 tablet by ity of (WELLBUTRIN 00:00: mouth [place] XL) 150 mg 00 daily. Medical 24 hr Branch tablet busPIRone 2021-0 Yes [id number] 30mg Take 1 Un matt 30 mg 4-12 tablet by ity of tablet 00:00: mouth 2 [place] 00 (two) Medical times Branch daily. SERTraline 2021-0 Yes [id number] 200mg Take 2 Univers 100 mg 4-12 tablets by ity of tablet 00:00: mouth [place] 00 daily. Medical Branch buPROPion 2021-0 Yes [id number] 150mg Take 1 U nivers XL 4-12 tablet by ity of (WELLBUTRIN 00:00: mouth [place] XL) 150 mg 00 daily. Medical 24 hr Branch tablet busPIRone 2021-0 Yes [id number] 30mg Take 1 Un matt 30 mg 4-12 tablet by ity of tablet 00:00: mouth 2 [place] 00 (two) Medical times Branch daily. SERTraline 2021-0 Yes [id number] 200mg Take 2 Univers 100 mg 4-12 tablets by ity of tablet 00:00: mouth [place] 00 daily. Medical Branch buPROPion 2021-0 Yes [id number] 150mg Take 1 U nivers XL 4-12 tablet by ity of (WELLBUTRIN 00:00: mouth [place] XL) 150 mg 00 daily. Medical 24 hr Branch tablet busPIRone 2021-0 Yes [id number] 30mg Take 1 Un matt 30 mg 4-12 tablet by ity of tablet 00:00: mouth 2 [place] 00 (two) Medical times Branch daily. SERTraline 2021-0 Yes [id number] 200mg Take 2 Univers 100 mg 4-12 tablets by ity of tablet 00:00: mouth [place] 00 daily. Medical Branch buPROPion 2021-0 Yes [id number] 150mg Take 1 U nivers XL 4-12 tablet by ity of (WELLBUTRIN 00:00: mouth [place] XL) 150 mg 00 daily. Medical 24 hr Branch tablet busPIRone 2021-0 Yes [id number] 30mg Take 1 Un matt 30 mg 4-12 tablet by ity of tablet 00:00: mouth 2 [place] 00 (two) Medical times Branch daily. SERTraline 2021-0 Yes [id number] 200mg Take 2 Univers 100 mg 4-12 tablets by ity of tablet 00:00: mouth [place] 00 daily. Medical Branch buPROPion 2021-0 Yes [id number] 150mg Take 1 U nivers XL 4-12 tablet by ity of (WELLBUTRIN 00:00: mouth [place] XL) 150 mg 00 daily. Medical 24 hr Branch tablet busPIRone 2021-0 Yes [id number] 30mg Take 1 Un matt 30 mg 4-12 tablet by ity of tablet 00:00: mouth 2 [place] 00 (two) Medical times Branch daily. SERTraline 2021-0 Yes [id number] 200mg Take 2 Univers 100 mg 4-12 tablets by ity of tablet 00:00: mouth [place] 00 daily. Medical Branch buPROPion 2021-0 Yes [id number] 150mg Take 1 U nivers XL 4-12 tablet by ity of (WELLBUTRIN 00:00: mouth [place] XL) 150 mg 00 daily. Medical 24 hr Branch tablet busPIRone 2021-0 Yes [id number] 30mg Take 1 Un matt 30 mg 4-12 tablet by ity of tablet 00:00: mouth 2 [place] 00 (two) Medical times Branch daily. SERTraline 2021-0 Yes [id number] 200mg Take 2 Univers 100 mg 4-12 tablets by ity of tablet 00:00: mouth [place] 00 daily. Medical Branch buPROPion 2021-0 Yes [id number] 150mg Take 1 U nivers XL 4-12 tablet by ity of (WELLBUTRIN 00:00: mouth [place] XL) 150 mg 00 daily. Medical 24 hr Branch tablet busPIRone 2021-0 Yes [id number] 30mg Take 1 Un matt 30 mg 4-12 tablet by ity of tablet 00:00: mouth 2 00 (two) Medical times Branch daily. SERTraline 2021-0 Yes [id number] 200mg Take 2 Univers 100 mg 4-12 tablets by ity of tablet 00:00: mouth [place] 00 daily. Medical Branch buPROPion 2021-0 Yes [id number] 150mg Take 1 U nivers XL 4-12 tablet by ity of (WELLBUTRIN 00:00: mouth [place] XL) 150 mg 00 daily. Medical 24 hr Branch tablet busPIRone 2021-0 Yes [id number] 30mg Take 1 Un matt 30 mg 4-12 tablet by ity of tablet 00:00: mouth 2 (two) Medical times Branch daily. SERTraline 2021-0 Yes [id number] 200mg Take 2 Univers 100 mg 4-12 tablets by ity of tablet 00:00: mouth [place] 00 daily. Medical Branch buPROPion 2021-0 Yes [id number] 150mg Take 1 U nivers XL 4-12 tablet by ity of (WELLBUTRIN 00:00: mouth [place] XL) 150 mg 00 daily. Medical 24 hr Branch tablet busPIRone 2021-0 Yes [id number] 30mg Take 1 Un matt 30 mg 4-12 tablet by ity of tablet 00:00: mouth 2 00 (two) Medical times Branch daily. SERTraline 2021-0 Yes [id number] 200mg Take 2 Univers 100 mg 4-12 tablets by ity of tablet 00:00: mouth [place] 00 daily. Medical Branch buPROPion 2021-0 Yes [id number] 150mg Take 1 U nivers XL 4-12 tablet by ity of (WELLBUTRIN 00:00: mouth [place] XL) 150 mg 00 daily. Medical 24 hr Branch tablet busPIRone 2021-0 Yes [id number] 30mg Take 1 Un matt 30 mg 4-12 tablet by ity of tablet 00:00: mouth 2 00 (two) Medical times Branch daily. SERTraline 2021-0 Yes [id number] 200mg Take 2 Univers 100 mg 4-12 tablets by ity of tablet 00:00: mouth [place] 00 daily. Medical Branch buPROPion 2021-0 Yes [id number] 150mg Take 1 U nivers XL 4-12 tablet by ity of (WELLBUTRIN 00:00: mouth [place] XL) 150 mg 00 daily. Medical 24 hr Branch tablet busPIRone 2021-0 Yes [id number] 30mg Take 1 Un matt 30 mg 4-12 tablet by ity of tablet 00:00: mouth 2 [place] 00 (two) Medical times Branch daily. SERTraline 0 Yes [id number] 200mg Take 2 Univers 100 mg 4-12 tablets by ity of tablet 00:00: mouth [place] 00 daily. Medical Branch buPROPion 0 Yes [id number] 150mg Take 1 U nivers XL 4-12 tablet by ity of (WELLBUTRIN 00:00: mouth [place] XL) 150 mg 00 daily. Medical 24 hr Branch tablet busPIRone 2021-0 Yes [id number] 30mg Take 1 Un matt 30 mg 4-12 tablet by ity of tablet 00:00: mouth 2 [place] 00 (two) Medical times Branch daily. SERTraline 2021-0 Yes [id number] 200mg Take 2 [facility] 100 mg 4-12 tablets by ity of tablet 00:00: mouth [place] 00 daily. Medical Branch buPROPion 2021-0 Yes [id number] 150mg Take 1 U nivers XL 4-12 tablet by ity of (WELLBUTRIN 00:00: mouth [place] XL) 150 mg 00 daily. Medical 24 hr Branch tablet busPIRone 2021-0 Yes [id number] 30mg Take 1 Un matt 30 mg 4-12 tablet by ity of tablet 00:00: mouth 2 [place] 00 (two) Medical times Branch daily. SERTraline 2021-0 Yes [id number] 200mg Take 2 [facility] 100 mg 4-12 tablets by ity of tablet 00:00: mouth [place] 00 daily. Medical Branch buPROPion 2021-0 Yes [id number] 150mg Take 1 U nivers XL 4-12 tablet by ity of (WELLBUTRIN 00:00: mouth [place] XL) 150 mg 00 daily. Medical 24 hr Branch tablet busPIRone 2021-0 Yes [id number] 30mg Take 1 Un matt 30 mg 4-12 tablet by ity of tablet 00:00: mouth 2 [place] 00 (two) Medical times Branch daily. SERTraline 2021-0 Yes [id number] 200mg Take 2 [facility] 100 mg 4-12 tablets by ity of tablet 00:00: mouth [place] 00 daily. Medical Branch raltegravir 2021-0 Yes [id number] 400mg Take 1 [facility] (ISENTRESS) 3-28 tablet by ity of 400 mg 00:00: mouth 2 [place] tablet 00 (two) Medical times Branch daily. raltegravir 2021-0 Yes [id number] 400mg Take 1 [facility] (ISENTRESS) 3-28 tablet by ity of 400 mg 00:00: mouth 2 [place] tablet 00 (two) Medical times Branch daily. raltegravir 2021-0 Yes [id number] 400mg Take 1 [facility] (ISENTRESS) 3-28 tablet by ity of 400 mg 00:00: mouth 2 [place] tablet 00 (two) Medical times Branch daily. raltegravir 2021-0 Yes [id number] 400mg Take 1 [facility] (ISENTRESS) 3-28 tablet by ity of 400 mg 00:00: mouth 2 [place] tablet 00 (two) Medical times Branch daily. raltegravir 2021-0 Yes [id number] 400mg Take 1 [facility] (ISENTRESS) 3-28 tablet by ity of 400 mg 00:00: mouth 2 [place] tablet 00 (two) Medical times Branch daily. raltegravir 2021-0 Yes [id number] 400mg Take 1 [facility] (ISENTRESS) 3-28 tablet by ity of 400 mg 00:00: mouth 2 [place] tablet 00 (two) Medical times Branch daily. raltegravir 2021-0 Yes [id number] 400mg Take 1 [facility] (ISENTRESS) 3-28 tablet by ity of 400 mg 00:00: mouth 2 [place] tablet 00 (two) Medical times Branch daily. raltegravir 202-0 Yes [id number] 400mg Take 1 [facility] (ISENTRESS) 3-28 tablet by ity of 400 mg 00:00: mouth 2 [place] tablet 00 (two) Medical times Branch daily. raltegravir 2021-0 Yes [id number] 400mg Take 1 [facility] (ISENTRESS) 3-28 tablet by ity of 400 mg 00:00: mouth 2 [place] tablet 00 (two) Medical times Branch daily. raltegravir 2022-0 Yes [id number] 400mg Take 1 [facility] (ISENTRESS) 3-28 tablet by ity of 400 mg 00:00: mouth 2 [place] tablet 00 (two) Medical times Branch daily. raltegravir 2022-0 Yes [id number] 400mg Take 1 [facility] (ISENTRESS) 3-28 tablet by ity of 400 mg 00:00: mouth 2 [place] tablet 00 (two) Medical times Branch daily. raltegravir 2022-0 Yes [id number] 400mg Take 1 [facility] (ISENTRESS) 3-28 tablet by ity of 400 mg 00:00: mouth 2 [place] tablet 00 (two) Medical times Branch daily. raltegravir 2-0 Yes [id number] 400mg Take 1 [facility] (ISENTRESS) 3-28 tablet by ity of 400 mg 00:00: mouth 2 [place] tablet 00 (two) Medical times Branch daily. raltegravir 2-0 Yes [id number] 400mg Take 1 [facility] (ISENTRESS) 3-28 tablet by ity of 400 mg 00:00: mouth 2 [place] tablet 00 (two) Medical times Branch daily. raltegravir 2-0 Yes [id number] 400mg Take 1 [facility] (ISENTRESS) 3-28 tablet by ity of 400 mg 00:00: mouth 2 [place] tablet 00 (two) Medical times Branch daily. raltegravir 2-0 Yes [id number] 400mg Take 1 [facility] (ISENTRESS) 3-28 tablet by ity of 400 mg 00:00: mouth 2 [place] tablet 00 (two) Medical times Branch daily. raltegravir 2-0 Yes [id number] 400mg Take 1 [facility] (ISENTRESS) 3-28 tablet by ity of 400 mg 00:00: mouth 2 [place] tablet 00 (two) Medical times Branch daily. raltegravir 2022-0 Yes [id number] 400mg Take 1 [facility] (ISENTRESS) 3-28 tablet by ity of 400 mg 00:00: mouth 2 [place] tablet 00 (two) Medical times Branch daily. raltegravir 2022-0 Yes [id number] 400mg Take 1 [facility] (ISENTRESS) 3-28 tablet by ity of 400 mg 00:00: mouth 2 [place] tablet 00 (two) Medical times Branch daily. raltegravir 2022-0 Yes [id number] 400mg Take 1 [facility] (ISENTRESS) 3-28 tablet by ity of 400 mg 00:00: mouth 2 [place] tablet 00 (two) Medical times Branch daily. raltegravir 2022- No [id number] 400mg Take 1 [facility] (ISENTRESS) 3-28 05-08 tablet by it y of 400 mg 00:00: 00:00 mouth 2 [place] tablet 00 :00 (two) Medical times Branch daily. LORazepam 1 2021- No [id number] 1mg Take 1 [facility] mg tablet 3- [...] times a tablet day. emtricitabi 2021- No [id number] Take one [facility] ne-tenofovi 1-20 09-12 po daily ity of r alafen 00:00: 00:00 [place] (DESCOVY) 00 :00 Medical tablet Branch metoprolol Yes [id number] Take 1 [facility] tartrate 7-26 tablet [facility] (Lopressor) 00:00: (100 mg 100 MG 00 total) by tablet mouth 2 (two) times a day AND 0.5 tablets (50 mg total) every night. metoprolol Yes [id number] Take 1 [facility] tartrate 7-26 [facility] [...] (affected area in groin) hydrALAZINE Yes 50mg Q.[id number] Take 50 mg [facility] (APRESOLINE 7-19 [id number] [address] mouth [facility] ) 50 MG [...] area in groin) hydrALAZINE 0 Yes 50mg Q.[id number] Take 50 mg [facility] (APRESOLINE 7-19 [id number] [address] mouth 3 st ) 50 MG [...] area in groin) hydrALAZINE 0 Yes 50mg Q.[id number] Take 50 mg [facility] (APRESOLINE 7-19 [id number] [address] mouth 3 st ) 50 MG [...] (affected area in groin) hydrALAZINE Yes 50mg Q.[id number] Take 50 mg [facility] (APRESOLINE 7-19 [id number] [address] mouth 3 st ) 50 MG [...] area in groin) hydrALAZINE 0 Yes 50mg Q.[id number] Take 50 mg [facility] (APRESOLINE 7-19 [id number] [address] mouth 3 st ) 50 MG [...] (affected area in groin) hydrALAZINE Yes 50mg Q.[id number] Take 50 mg [facility] (APRESOLINE 7-19 [id number] [address] mouth 3 [address] ) 50 MG [...] (affected area in groin) hydrALAZINE Yes 50mg Q.[id number] Take 50 mg [facility] (APRESOLINE 7-19 [id number] [address] mouth 3 st ) 50 MG [...] (affected area in groin) hydrALAZINE Yes 50mg Q.[id number] Take 50 mg [facility] (APRESOLINE 7-19 [id number] by mouth 3 st ) 50 MG [...] area in groin) hydrALAZINE 0 Yes 50mg Q.[id number] Take 50 mg [facility] (APRESOLINE 7-19 [id number] [address] mouth 3 st ) 50 MG [...] area in groin) hydrALAZINE 0 Yes 50mg Q.[id number] Take 50 mg [facility] (APRESOLINE 7-19 [id number] mouth 3 st ) 50 MG [...] (affected area in groin) hydrALAZINE Yes 50mg Q.[id number] Take 50 mg [facility] (APRESOLINE - [id number] by mouth 3 st ) 50 MG [...] area in groin) hydrALAZINE 0 Yes 50mg Q.[id number] Take 50 mg [facility] (APRESOLINE -19 [id number] by mouth 3 st ) 50 MG [...] area in groin) hydrALAZINE 0 Yes 50mg Q.[id number] Take 50 mg [facility] (APRESOLINE 7-19 [id number] by mouth 3 st ) 50 MG [...] (affected area in groin) hydrALAZINE Yes 50mg Q.[id number] Take 50 mg [facility] (APRESOLINE 7-19 [id number] [address] mouth 3 [address] ) 50 MG [...] area in groin) hydrALAZINE 0 Yes 50mg Q.[id number] Take 50 mg [facility] (APRESOLINE - [id number] by mouth 3 st ) 50 MG [...] area in groin) hydrALAZINE 0 Yes 50mg Q.[id number] Take 50 mg [facility] (APRESOLINE 7-19 [id number] [address] mouth 3 [facility] ) 50 MG [...] area in groin) hydrALAZINE 0 Yes 50mg Q.[id number] Take 50 mg [facility] (APRESOLINE 7-19 [id number] by mouth 3 st ) 50 MG [...] (affected area in groin) hydrALAZINE Yes 50mg Q.[id number] Take 50 mg [facility] (APRESOLINE 7-19 [id number] by mouth 3 st ) 50 MG [...] area in groin) hydrALAZINE 0 Yes 50mg Q.[id number] Take 50 mg [facility] (APRESOLINE 7-19 [id number] [address] mouth 3 st ) 50 MG [...] area in groin) hydrALAZINE 0 Yes 50mg Q.[id number] Take 50 mg [facility] (APRESOLINE 7-19 [id number] [address] mouth 3 [facility] ) 50 MG [...] (affected area in groin) hydrALAZINE Yes 50mg Q.[id number] Take 50 mg [facility] (APRESOLINE 7-19 [id number] [address] mouth 3 [address] ) 50 MG [...] area in groin) hydrALAZINE 0 Yes 50mg Q.[id number] Take 50 mg [facility] (APRESOLINE 7-19 [id number] [address] mouth 3 [facility] ) 50 MG [...] area in groin) hydrALAZINE 0 Yes 50mg Q.[id number] Take 50 mg [facility] (APRESOLINE 7-19 [id number] [address] mouth 3 [facility] ) 50 MG [...] (affected area in groin) hydrALAZINE Yes 50mg Q.[id number] Take 50 mg [facility] (APRESOLINE 7-19 [id number] by mouth 3 st ) 50 MG [...] area in groin) hydrALAZINE 0 Yes 50mg Q.[id number] Take 50 mg [facility] (APRESOLINE 7-19 [id number] by mouth 3 [facility] ) 50 MG [...] area in groin) hydrALAZINE 0 Yes 50mg Q.[id number] Take 50 mg [facility] (APRESOLINE 7-19 [id number] mouth 3 [address] ) 50 MG [...] (affected area in groin) hydrALAZINE Yes 50mg Q.[id number] Take 50 mg [facility] (APRESOLINE 7-19 [id number] by mouth 3 st ) 50 MG [...] (affected area in groin) hydrALAZINE Yes 50mg Q.[id number] Take 50 mg [facility] (APRESOLINE 7-19 [id number] [address] mouth 3 [address] ) 50 MG [...] area in groin) hydrALAZINE 0 Yes 50mg Q.[id number] Take 50 mg [facility] (APRESOLINE 7-19 [id number] by mouth 3 [facility] ) 50 MG [...] area in groin) hydrALAZINE 0 Yes 50mg Q.[id number] Take 50 mg [facility] (APRESOLINE 7-19 [id number] by mouth 3 [facility] ) 50 MG [...] (affected area in groin) hydrALAZINE Yes 50mg Q.[id number] Take 50 mg [facility] (APRESOLINE 7-19 [id number] [address] mouth 3 [facility] ) 50 MG [...] (affected area in groin) hydrALAZINE Yes 50mg Q.[id number] Take 50 mg [facility] (APRESOLINE 7-19 [id number] [address] mouth 3 [address] ) 50 MG [...] area in groin) hydrALAZINE 0 Yes 50mg Q.[id number] Take 50 mg [facility] (APRESOLINE 7-19 [id number] [address] mouth 3 [address] ) 50 MG [...] (affected area in groin) hydrALAZINE Yes 50mg Q.[id number] Take 50 mg [facility] (APRESOLINE 7-19 [id number] [address] mouth 3 [facility] ) 50 MG [...] area in groin) hydrALAZINE 0 Yes 50mg Q.[id number] Take 50 mg [facility] (APRESOLINE 7-19 [id number] [address] mouth 3 [facility] ) 50 MG [...] area in groin) hydrALAZINE 0 Yes 50mg Q.[id number] Take 50 mg [facility] (APRESOLINE 7-19 [id number] [address] mouth 3 [address] ) 50 MG [...] (affected area in groin) hydrALAZINE Yes 50mg Q.[id number] Take 50 mg [facility] (APRESOLINE 7-19 [id number] [address] mouth 3 [facility] ) 50 MG [...] (affected area in groin) hydrALAZINE Yes 50mg Q.[id number] Take 50 mg [facility] (APRESOLINE 7-19 [id number] by mouth 3 [address] ) 50 MG [...] area in groin) hydrALAZINE 0 Yes 50mg Q.[id number] Take 50 mg [facility] (APRESOLINE 7-19 [id number] [address] mouth 3 [facility] ) 50 MG [...] (affected area in groin) hydrALAZINE Yes 50mg Q.[id number] Take 50 mg [facility] (APRESOLINE 7-[id number] mouth 3 [facility] ) 50 MG [...] (affected area in groin) hydrALAZINE Yes 50mg Q.[id number] Take 50 mg [facility] (APRESOLINE 7-19 [id number] by mouth 3 st ) 50 MG [...] area in groin) hydrALAZINE 0 Yes 50mg Q.[id number] Take 50 mg [facility] (APRESOLINE 7-19 [id number] [address] mouth 3 [facility] ) 50 MG [...] area in groin) hydrALAZINE 0 Yes 50mg Q.[id number] Take 50 mg [facility] (APRESOLINE 7-19 [id number] by mouth 3 [facility] ) 50 MG [...] (affected area in groin) hydrALAZINE Yes 50mg Q.[id number] Take 50 mg [facility] (APRESOLINE 7-19 [id number] mouth 3 [facility] ) 50 MG [...] area in groin) hydrALAZINE 0 Yes 50mg Q.[id number] Take 50 mg [facility] (APRESOLINE 7-[id number] mouth 3 [address] ) 50 MG [...] area in groin) hydrALAZINE 2020-0 Yes 50mg Q.[id number] Take 50 mg [facility] (APRESOLINE 7-19 [id number] mouth 3 [facility] ) 50 MG [...] (affected area in groin) hydrALAZINE Yes 50mg Q.[id number] Take 50 mg [facility] (APRESOLINE 7-19 [id number] by mouth 3 [facility] ) 50 MG [...] (affected area in groin) hydrALAZINE Yes 50mg Q.[id number] Take 50 mg [facility] (APRESOLINE 7-[id number] mouth 3 [address] ) 50 MG [...] area in groin) hydrALAZINE 0 Yes 50mg Q.[id number] Take 50 mg [facility] (APRESOLINE 7-[id number] mouth 3 [address] ) 50 MG [...] (affected area in groin) hydrALAZINE Yes 50mg Q.[id number] Take 50 mg [facility] (APRESOLINE 7-[id number] mouth 3 [address] ) 50 MG [...] (affected area in groin) hydrALAZINE Yes 50mg Q.[id number] Take 50 mg [facility] (APRESOLINE 7-19 [id number] by mouth 3 [facility] ) 50 MG [...] [facility]osp[facility] tablet 25 l nystatin-tr 2020-0 Yes [id number] Apply to [facility] iainolone 7-06 area(s) 3 ity of cream 00:00: (three) [place] 00 times Medical daily. Branch nystatin-tr 1-0 Yes [id number] Apply to [facility] iainolone 7-06 area(s) 3 ity of cream 00:00: (three) [place] 00 times Medical daily. Branch nystatin-tr 2021-0 Yes [id number] Apply to [facility] iamcinolone 7-06 area(s) 3 ity of cream 00:00: (three) [place] 00 times Medical daily. Branch nystatin-tr 2021-0 Yes [id number] Apply to [facility] iainolone 7-06 area(s) 3 ity of cream 00:00: (three) [place] 00 times Medical daily. Branch nystatin-tr 2021-0 Yes [id number] Apply to [facility] iainolone 7-06 area(s) 3 ity of cream 00:00: (three) [place] 00 times Medical daily. Branch nystatin-tr 2021-0 Yes [id number] Apply to [facility] iamcinolone 7-06 area(s) 3 ity of cream 00:00: (three) [place] 00 times Medical daily. Branch nystatin-tr 2021-0 Yes [id number] Apply to [facility] iamcinolone 7-06 area(s) 3 ity of cream 00:00: (three) [place] 00 times Medical daily. Branch nystatin-tr 2021-0 Yes [id number] Apply to [facility] iamcinolone 7-06 area(s) 3 ity of cream 00:00: (three) [place] 00 times Medical daily. Branch nystatin-tr 2021-0 Yes [id number] Apply to [facility] iamcinolone 7-06 area(s) 3 ity of cream 00:00: (three) [place] 00 times Medical daily. Branch nystatin-tr 2021-0 Yes [id number] Apply to [facility] iamcinolone 7-06 area(s) 3 ity of cream 00:00: (three) [place] 00 times Medical daily. Branch nystatin-tr 2021-0 Yes [id number] Apply to [facility] iamcinolone 7-06 area(s) 3 ity of cream 00:00: (three) [place] 00 times Medical daily. Branch nystatin-tr 2021-0 Yes [id number] Apply to [facility] iamcinolone 7-06 area(s) 3 ity of cream 00:00: (three) [place] 00 times Medical daily. Branch nystatin-tr 2021-0 Yes [id number] Apply to [facility] iamcinolone 7-06 area(s) 3 ity of cream 00:00: (three) [place] 00 times Medical daily. Branch nystatin-tr 2021-0 Yes [id number] Apply to [facility] iamcinolone 7-06 area(s) 3 ity of cream 00:00: (three) [place] 00 times Medical daily. Branch nystatin-tr 2021-0 Yes [id number] Apply to [facility] iamcinolone 7-06 area(s) 3 ity of cream 00:00: (three) [place] 00 times Medical daily. Branch nystatin-tr 2021-0 Yes [id number] Apply to [facility] iamcinolone 7-06 area(s) 3 ity of cream 00:00: (three) [place] 00 times Medical daily. Branch nystatin-tr 2021-0 Yes [id number] Apply to [facility] iainolone 7-06 area(s) 3 ity of cream 00:00: (three) [place] 00 times Medical daily. Branch nystatin-tr 1-0 Yes [id number] Apply to [facility] iamcinolone 7-06 area(s) 3 ity of cream 00:00: (three) [place] 00 times Medical daily. Branch nystatin-tr 2020-0 Yes [id number] Apply to [facility] iamcinolone 7-06 area(s) 3 ity of cream 00:00: (three) [place] 00 times Medical daily. Branch nystatin-tr 2020-0 Yes [id number] Apply to [facility] iamcinolone 7-06 area(s) 3 ity of cream 00:00: (three) [place] 00 times Medical daily. Branch nystatin-tr 2020-0 Yes [id number] Apply to [facility] iamcinolone 7-06 area(s) 3 ity of cream 00:00: (three) [place] 00 times Medical daily. Branch nystatin-tr 2020-0 Yes [id number] Apply to [facility] iamcinolone 7-06 area(s) 3 ity of cream 00:00: (three) [place] 00 times Medical daily. Branch budesonide- 2020-0 202- No 1{puff} QD Inhale 1 [facility] formoteroL 6-25 06-[address] (SYMBICORT) 14:37: 00:00 morning. H ospita 160-4.5 02 :00 l mcg/actuati on inhaler hydrALAZINE 0 Yes [id number] 50mg Q.[id number] Take 1 [facility] (Apresoline 6-11 [id number] tablet (50 Health ) 50 MG 00:00: 3D mg total) tablet 00 by mouth 3 (three) times a day. hydrALAZINE 0 Yes [id number] 50mg Q.[id number] Take 1 [facility] (Apresoline 6-11 [id number] tablet (50 Health ) 50 MG 00:00: [...] % 00:00: ointment 00 nystatin 2020- No [id number] Q.25D Take 5 mL [facility] (MYCOSTATIN 10-06 [...] (Same as: l 14:00: Zoloft) [place] 00 pantoprazol No Notes: Caesar lisa e [...] (Same as: l 14:00: Zoloft) [place] 00 pantoprazol No Notes: Caesar lisa e [...] (Same as: l 14:00: Zoloft) [place] 00 pantoprazol No Notes: Caesar lisa e [...] (Same as: l 14:00: Zoloft) [place] 00 pantoprazol No Notes: Caesar lisa e [...] (Same as: l 14:00: Zoloft) [place] 00 pantoprazol No Notes: Caesar lisa e [...] 02:00: Eliquis [place] 00 Hydralazine No Notes: Caeasr lisa Hydrochlori 4-10 (Same as: l de [...] 4-10 Same as: l 02:00: Eliquis [place] 00 Hydralazine No Notes: Caesar lisa Hydrochlori [...] exceed l #3 00:12: 4gm/day of [place] 00 acetaminop hen. (Same as: Tylenol with [...] oria -09 tab, l 22:00: Route: PO, [place] [facility] [...] 00 Stop date: 08/29/20 10:40:00 CDT neostigmine No [...] tab, 0 coated Refill(s), tablet Pharmacy: [facility], 162.56, cm, 08/29/20 5:30:00 CDT, Height, 97.273, kg, 08/29/20 5:30:00 CDT, Weight pantoprazol 2021-0 Yes 40 mg = 1 M emoria e 40 mg 4-09 tab, PO, l oral 15:27: Daily, # [place] enteric 00 30 tab, 0 coated Refill(s), tablet Pharmacy: [facility] 149, 162.56, cm, 08/29/20 5:30:00 CDT, Height, 97.273, kg, 08/29/20 5:30:00 CDT, Weight pantoprazol 2021-0 Yes 40 mg = 1 M emoria e 40 mg 4-09 tab, PO, l oral 15:27: Daily, # [place] [facility] 00 30 tab, 0 coated Refill(s), tablet Pharmacy: [facility] 149, 162.56, cm, 08/29/20 5:30:00 CDT, Height, 97.273, kg, 08/29/20 5:30:00 CDT, Weight pantoprazol 1-0 Yes 40 mg = 1 M emoria e 40 mg 4-09 tab, PO, l oral 15:27: Daily, # [place] [facility] 00 30 tab, 0 coated Refill(s), tablet Pharmacy: [facility] 149, 162.56, cm, 08/29/20 5:30:00 CDT, Height, 97.273, kg, 08/29/20 5:30:00 CDT, Weight pantoprazol 1-0 Yes 40 mg = 1 M emoria e 40 mg 4-09 tab, PO, l oral 15:27: Daily, # [place] [facility] 00 30 tab, 0 coated Refill(s), tablet Pharmacy: [facility] 149, 162.56, cm, 08/29/20 5:30:00 CDT, Height, 97.273, kg, 08/29/20 5:30:00 CDT, Weight pantoprazol 2021-0 Yes 40 mg = 1 M emoria e 40 mg 4-09 tab, PO, l oral 15:27: Daily, # [place] enteric 00 30 tab, 0 coated Refill(s), tablet Pharmacy: [facility] 149, 162.56, cm, 08/29/20 5:30:00 CDT, Height, 97.273, kg, 08/29/20 5:30:00 CDT, Weight pantoprazol 2021-0 Yes 40 mg = 1 M emoria e 40 mg 4-09 tab, PO, l oral 15:27: Daily, # [place] [facility] 00 30 tab, 0 coated Refill(s), tablet Pharmacy: [place] [address], 162.56, cm, 08/29/20 5:30:00 CDT, Height, 97.273, [...] 00 tab, 0 Refill(s), Pharmacy: [place] [address], 162.56, cm, 08/29/20 5:30:00 CDT, Height, 97.273, [...] 00 tab, 0 Refill(s), Pharmacy: [place] [address], 162.56, cm, 08/29/20 5:30:00 CDT, Height, 97.273, [...] 00 tab, 0 Refill(s), Pharmacy: [place] [address], 162.56, cm, 08/29/20 5:30:00 CDT, Height, 97.273, [...] nn 00 tab, 0 Refill(s), Pharmacy: [facility] 149, 162.56, cm, 08/29/20 5:30:00 [...] nn 00 tab, 0 Refill(s), Pharmacy: [facility] 149, 162.56, cm, 08/29/20 5:30:00 [...] nn 00 tab, 0 Refill(s), Pharmacy: [facility] 149, 162.56, cm, 08/29/20 5:30:00 [...] nn 00 tab, 0 Refill(s), Pharmacy: [facility] 149, 162.56, cm, 08/29/20 5:30:00 CDT, Height, 97.273, kg, 08/29/20 5:30:00 CDT, Weight Saline No Notes: Memoria Flush 0.9% 4-09 (Same as: l 15:25: BD [place] 00 Posiflush) Lorazepam No Notes: Memori a 4-09 (Same as: l 15:25: Ativan) Saline No Notes: [facility] Flush 0.9% 4-09 (Same as: l 15:25: BD [place] 00 Posiflush) Lorazepam No Notes: Memori a 4-09 (Same as: l 15:25: Ativan) Saline No Notes: [facility] Flush 0.9% 4-09 (Same as: l 15:25: BD [place] 00 Posiflush) Saline No Notes: [facility] Flush 0.9% 4-09 (Same as: l 15:25: BD [place] 00 Posiflush) Lorazepam No Notes: Memori a [...] 2021-0 No Route: IV, Caesar lisa (ANES) - Drug form: l 14:18: INJ, ONCE, Stop [...] Naloxone 2021-0 No 0.4 mg, Memori a - Route: l 14:01: IVP, [place] 00 Q2MIN, [...] ia 4- Route: l 14:01: IVP, ONCE, [place] 00 [...] form: l 10 13:15: INJ, Start [place] 00 date: 08/29/20 8:15:00 CDT, Stop date: [...] # [place] 00 90 tab, 3 Refill(s) normal No [...] 00:00: mouth [facility] 00 daily. l DESCOVY 0 Yes 1{tbl} QD Take 1 [...] Immunizations Ordered Filled Immunization Date Status Comments [facility] Immunization Name Name SARS-COV-2 COVID-19 [...] [facility] 65+ PFIZER COVID-19 2020-07-23 Completed [facility] VACCINATION 00:00:00 [facility] PFIZER COVID-19 2020-07-23 Completed [facility] MRNA VACCINATION 00:00:00 [facility] PFIZER COVID-19 2020-07-23 Completed [facility] MRNA VACCINATION 00:00:00 [facility] PFIZER COVID-19 2020-07-23 Completed [facility] MRNA VACCINATION 00:00:00 [facility] PFIZER COVID-19 2020-07-23 Completed [facility] MRNA VACCINATION 00:00:00 [facility] PFIZER COVID-19 2020-07-23 Completed [facility] MRNA VACCINATION 00:00:00 [facility] PFIZER COVID-19 2020-07-23 Completed [facility] MRNA VACCINATION 00:00:00 [facility] PFIZER COVID-19 2020-07-23 Completed [facility] MRNA VACCINATION 00:00:00 [facility] PFIZER COVID-19 2020-07-23 Completed [facility] MRNA VACCINATION 00:00:00 [facility] PFIZER COVID-19 2020-07-23 Completed [facility] MRNA VACCINATION 00:00:00 [facility] PFIZER COVID-19 2020-07-23 Completed [facility] MRNA VACCINATION 00:00:00 [facility] PFIZER COVID-19 2020-07-23 Completed [facility] MRNA VACCINATION 00:00:00 [facility] PFIZER COVID-19 2020-07-23 Completed [facility] MRNA VACCINATION 00:00:00 [facility] PFIZER COVID-19 2020-07-23 Completed [facility] MRNA VACCINATION 00:00:00 [facility] PFIZER COVID-19 2020-07-23 Completed [facility] MRNA VACCINATION 00:00:00 [facility] PFIZER COVID-19 2020-07-23 Completed [facility] MRNA VACCINATION 00:00:00 [facility] PFIZER COVID-19 2020-07-23 Completed [facility] MRNA VACCINATION 00:00:00 [facility] PFIZER COVID-19 2020-07-23 Completed [facility] MRNA VACCINATION 00:00:00 [facility] PFIZER COVID-19 2020-07-23 Completed [facility] MRNA VACCINATION 00:00:00 [facility] PFIZER COVID-19 2020-07-23 Completed [facility] MRNA VACCINATION 00:00:00 [facility] PFIZER COVID-19 2020-07-23 Completed [facility] MRNA VACCINATION 00:00:00 [facility] PFIZER COVID-19 2020-07-23 Completed [facility] MRNA VACCINATION 00:00:00 [facility] PFIZER COVID-19 2020-07-23 Completed [facility] MRNA VACCINATION 00:00:00 [facility] PFIZER COVID-19 2020-07-23 Completed [facility] MRNA VACCINATION 00:00:00 [facility] PFIZER COVID-19 2020-07-23 Completed [facility] MRNA VACCINATION 00:00:00 [facility] PFIZER COVID-19 2020-07-23 Completed [facility] MRNA VACCINATION 00:00:00 [facility] PFIZER COVID-19 2020-07-23 Completed [facility] MRNA VACCINATION 00:00:00 [facility] PFIZER COVID-19 2020-07-23 Completed [facility] MRNA VACCINATION 00:00:00 [facility] PFIZER COVID-19 2020-07-23 Completed [facility] MRNA VACCINATION 00:00:00 [facility] PFIZER COVID-19 2020-07-23 Completed [facility] MRNA VACCINATION 00:00:00 [facility] PFIZER COVID-19 2020-07-23 Completed [facility] MRNA VACCINATION 00:00:00 [facility] PFIZER COVID-19 2020-07-23 Completed [facility] MRNA VACCINATION 00:00:00 [facility] PFIZER COVID-19 2020-07-23 Completed [facility] MRNA VACCINATION 00:00:00 [facility] PFIZER COVID-19 2020-07-23 Completed [facility] MRNA VACCINATION 00:00:00 [facility] PFIZER COVID-19 2020-07-23 Completed [facility] MRNA VACCINATION 00:00:00 [facility] PFIZER COVID-19 2020-07-23 Completed [facility] MRNA VACCINATION 00:00:00 [facility] PFIZER COVID-19 2020-07-23 Completed [facility] MRNA VACCINATION 00:00:00 [facility] PFIZER COVID-19 2020-07-23 Completed [facility] MRNA VACCINATION 00:00:00 [facility] PFIZER COVID-19 2020-07-23 Completed [facility] MRNA VACCINATION 00:00:00 [facility] PFIZER COVID-19 2020-07-23 Completed [facility] MRNA VACCINATION 00:00:00 [facility] PFIZER COVID-19 2020-07-23 Completed [facility] MRNA VACCINATION 00:00:00 [facility] PFIZER COVID-19 2020-07-23 Completed [facility] MRNA VACCINATION 00:00:00 [facility] PFIZER COVID-19 2020-07-23 Completed [facility] VACCINATION 00:00:00 [facility] PFIZER COVID-19 2020-07-23 Completed [facility] MRNA VACCINATION 00:00:00 [facility] PFIZER COVID-19 2020-07-23 Completed [facility] MRNA VACCINATION 00:00:00 [facility] PFIZER COVID-19 2020-07-23 Completed [facility] MRNA VACCINATION 00:00:00 [facility] PFIZER COVID-19 2020-07-23 Completed [facility] M[facility] VACCINATION 00:00:00 [facility] PFIZER COVID-19 2020-07-23 Completed [facility] MRNA VACCINATION 00:00:00 [facility] PFIZER COVID-19 2020-07-23 Completed [facility] M[facility] VACCINATION 00:00:00 [facility] PFIZER COVID-19 2020-07-23 Completed [facility] M[facility] VACCINATION 00:00:00 [facility] SARS-COV-2 COVID-19 2020-07-23 Completed [facility] [...] [facility]-19 2020-07-23 Completed [facility] MRNA VACCINATION 00:00:00 [facility] PFIZER COVID-19 2020-07-02 Completed [facility] MRNA VACCINATION 00:00:00 [facility] PFIZER COVID-19 2020-07-02 Completed [facility] MRNA VACCINATION 00:00:00 [facility] PFIZER COVID-19 2020-07-02 Completed [facility] MRNA VACCINATION 00:00:00 [facility] PFIZER COVID-19 2020-07-02 Completed [facility] MRNA VACCINATION 00:00:00 [facility] PFIZER COVID-19 2020-07-02 Completed [facility] VACCINATION 00:00:00 [facility] PFIZER COVID-19 2020-07-02 Completed [facility] MRNA VACCINATION 00:00:00 [facility] PFIZER COVID-19 2020-07-02 Completed [facility] MRNA VACCINATION 00:00:00 [facility] PFIZER COVID-19 2020-07-02 Completed [facility] MRNA VACCINATION 00:00:00 [facility] PFIZER COVID-19 2020-07-02 Completed [facility] MRNA VACCINATION 00:00:00 [facility] PFIZER COVID-19 2020-07-02 Completed [facility] MRNA VACCINATION 00:00:00 [facility] PFIZER COVID-19 2020-07-02 Completed [facility] MRNA VACCINATION 00:00:00 [facility] PFIZER COVID-19 2020-07-02 Completed [facility] MRNA VACCINATION 00:00:00 [facility] PFIZER COVID-19 2020-07-02 Completed [facility] MRNA VACCINATION 00:00:00 [facility] PFIZER COVID-19 2020-07-02 Completed [facility] MRNA VACCINATION 00:00:00 [facility] PFIZER COVID-19 2020-07-02 Completed [facility] MRNA VACCINATION 00:00:00 [facility] PFIZER COVID-19 2020-07-02 Completed [facility] MRNA VACCINATION 00:00:00 [facility] PFIZER COVID-19 2020-07-02 Completed [facility] M[facility] VACCINATION 00:00:00 [facility] PFIZER COVID-19 2020-07-02 Completed [facility] MRNA VACCINATION 00:00:00 [facility] PFIZER COVID-19 2020-07-02 Completed [facility] MRNA VACCINATION 00:00:00 [facility] PFIZER COVID-19 2020-07-02 Completed [facility] MRNA VACCINATION 00:00:00 [facility] PFIZER COVID-19 2020-07-02 Completed [facility] MRNA VACCINATION 00:00:00 [facility] PFIZER COVID-19 2020-07-02 Completed [facility] MRNA VACCINATION 00:00:00 [facility] PFIZER COVID-19 2020-07-02 Completed [facility] MRNA VACCINATION 00:00:00 [facility] PFIZER COVID-19 2020-07-02 Completed [facility] MRNA VACCINATION 00:00:00 [facility] PFIZER COVID-19 2020-07-02 Completed [facility] MRNA VACCINATION 00:00:00 [facility] PFIZER COVID-19 2020-07-02 Completed [facility] MRNA VACCINATION 00:00:00 [facility] PFIZER COVID-19 2020-07-02 Completed [facility] MRNA VACCINATION 00:00:00 [facility] PFIZER COVID-19 2020-07-02 Completed [facility] MRNA VACCINATION 00:00:00 [facility] PFIZER COVID-19 2020-07-02 Completed [facility] MRNA VACCINATION 00:00:00 [facility] PFIZER COVID-19 2020-07-02 Completed [facility] MRNA VACCINATION 00:00:00 [facility] PFIZER COVID-19 2020-07-02 Completed [facility] MRNA VACCINATION 00:00:00 [facility] PFIZER COVID-19 2020-07-02 Completed [facility] MRNA VACCINATION 00:00:00 [facility] PFIZER COVID-19 2020-07-02 Completed [facility] MRNA VACCINATION 00:00:00 [facility] PFIZER COVID-19 2020-07-02 Completed [facility] MRNA VACCINATION 00:00:00 [facility] PFIZER COVID-19 2020-07-02 Completed [facility] MRNA VACCINATION 00:00:00 [facility] PFIZER COVID-19 2020-07-02 Completed [facility] MRNA VACCINATION 00:00:00 [facility] PFIZER COVID-19 2020-07-02 Completed [facility] MRNA VACCINATION 00:00:00 [facility] PFIZER COVID-19 2020-07-02 Completed [facility] MRNA VACCINATION 00:00:00 [facility] PFIZER COVID-19 2020-07-02 Completed [facility] M[facility] VACCINATION 00:00:00 [facility] PFIZER COVID-19 2020-07-02 Completed [facility] MRNA VACCINATION 00:00:00 [facility] PFIZER COVID-19 2020-07-02 Completed [facility] MRNA VACCINATION 00:00:00 [facility] PFIZER COVID-19 2020-07-02 Completed [facility] MRNA VACCINATION 00:00:00 [facility] PFIZER COVID-19 2020-07-02 Completed [facility] MRNA VACCINATION 00:00:00 [facility] PFIZER COVID-19 2020-07-02 Completed [facility] MRNA VACCINATION 00:00:00 [facility] PFIZER COVID-19 2020-07-02 Completed [facility] MRNA VACCINATION 00:00:00 [facility] PFIZER COVID-19 2020-07-02 Completed [facility] MRNA VACCINATION 00:00:00 [facility] PFIZER COVID-19 2020-07-02 Completed [facility] MRNA VACCINATION 00:00:00 [facility] PFIZER COVID-19 2020-07-02 Completed [facility] MRNA VACCINATION 00:00:00 [facility] PFIZER COVID-19 2020-07-02 Completed [facility] MRNA VACCINATION 00:00:00 [facility] PFIZER COVID-19 2020-07-02 Completed [facility] MRNA VACCINATION 00:00:00 [facility] SARS-COV-2 COVID-19 2020-07-02 Completed Unive [...] Completed Unive rsity of PFIZER VACCINE 00:00:00 [facility] SARS-COV-2 COVID-19 2020-07-02 Completed Unive rsity of PFIZER VACCINE 00:00:00 [facility] SARS-COV-2 COVID-19 2020-07-02 Completed Unive rsity of PFIZER VACCINE 00:00:00 [facility] SARS-COV-2 COVID-19 2020-07-02 Completed Unive rsity of PFIZER VACCINE 00:00:00 [facility] SARS-COV-2 COVID-19 2020-07-02 Completed Unive rsity of PFIZER VACCINE 00:00:00 [facility] SARS-COV-2 COVID-19 2020-07-02 Completed Unive rsity of PFIZER VACCINE 00:00:00 [facility] SARS-COV-2 COVID-19 2020-07-02 Completed Unive rsity of PFIZER VACCINE 00:00:00 [facility] SARS-COV-2 COVID-19 2020-07-02 Completed [facility] [...] [facility] 2020-07-02 Completed [facility] M[facility] VACCINATION 00:00:00 [facility] Influenza Virus 2017-03-08 Completed Universit [...] y of Vaccine (3+ yrs) 00:00:00 [place] [facility] Pneumococcal 13 2014-01-30 Completed Universit y of Conjugate, PCV13 00:00:00 [facility] (Prevnar 13) [facility] Influenza Virus 2014-01-30 Completed [facility]it y of Vaccine (3+ yrs) 00:00:00 [place] [facility] Pneumococcal 13 2014-01-30 Completed Universit [...] Universit y of Conjugate, PCV13 00:00:00 [place] [facility] (Prevnar 13) [facility] Influenza Virus 2014-01-30 [...] y of Vaccine (3+ yrs) 00:00:00 [place] [facility] Pneumococcal 13 2014-01-30 Completed [facility]it y [facility] Conjugate, PCV13 00:00:00 [place] [facility] (Prevnar 13) [facility] Influenza Virus 2014-01-30 Completed [facility]it y of Vaccine (3+ yrs) 00:00:00 [place] [facility] Pneumococcal 13 2014-01-30 Completed [facility]it y of Conjugate, PCV13 00:00:00 [place] [facility] (Prevnar 13) [facility] Influenza Virus 2014-01-30 Completed [facility]it y of Vaccine (3+ yrs) 00:00:00 [place] [facility] Pneumococcal 13 2014-01-30 Completed [facility]it y of Conjugate, PCV13 00:00:00 [place] [facility] (Prevnar 13) [facility] Influenza Virus 2014-01-30 Completed [facility]it y of Vaccine (3+ yrs) 00:00:00 [facility] Pneumococcal 13 2014-01-30 Completed Universit y of Conjugate, PCV13 00:00:00 [facility] (Prevnar 13) Branch Influenza Virus 2014-01-30 Completed [facility]it y of Vaccine (3+ yrs) 00:00:00 [facility] Pneumococcal 13 2014-01-30 Completed Universit y of Conjugate, PCV13 00:00:00 [place] [facility] (Prevnar 13) [facility] Influenza Virus 2014-01-30 [...] Completed University o f Polysaccharide, 00:00:00 [place] [facility] PPSV23 (PNEUMOVAX) Branch Influenza Virus 2012-02-16 Completed Universit y of Vaccine 00:00:00 [facility] PPD (TB) 2012-02-16 Completed [facility] of 00:00:00 [facility] Pneumococcal 2012-02-16 Completed University o f Polysaccharide, 00:00:00 [place] [facility] PPSV23 (PNEUMOVAX) Branch Influenza Virus 2012-02-16 Completed Universit y of Vaccine 00:00:00 [facility] PPD (TB) 2012-02-16 Completed [facility] of 00:00:00 [facility] Pneumococcal 2012-02-16 Completed [facility] o f Polysaccharide, 00:00:00 [place] [facility] PPSV23 (PNEUMOVAX) Branch Influenza Virus 2012-02-16 Completed [facility]it y of Vaccine 00:00:00 [facility] PPD (TB) 2012-02-16 Completed [facility] of 00:00:00 [facility] Pneumococcal 2012-02-16 Completed [facility] o f Polysaccharide, 00:00:00 [place] [facility] PPSV23 (PNEUMOVAX) Branch Influenza [...] Completed University o f Polysaccharide, 00:00:00 [place] [facility] PPSV23 (PNEUMOVAX) Branch Influenza Virus 2012-02-16 Completed [facility]it [facility] of Vaccine 00:00:00 [facility] PPD (TB) 2012-02-16 Completed [facility] of 00:00:00 [facility] Pneumococcal 2012-02-16 Completed [facility] o f Polysaccharide, 00:00:00 [place] [facility] PPSV23 (PNEUMOVAX) Branch Influenza Virus 2012-02-16 Completed [facility]it y of Vaccine 00:00:00 [facility] PPD (TB) 2012-02-16 Completed [facility] of 00:00:00 [facility] Pneumococcal 2012-02-16 Completed University o f Polysaccharide, 00:00:00 [place] [facility] PPSV23 (PNEUMOVAX) Branch Influenza Virus 2012-02-16 Completed [facility]it y of Vaccine 00:00:00 [facility] PPD (TB) 2012-02-16 Completed [facility] of 00:00:00 [facility] Pneumococcal 2012-02-16 Completed [facility] o f Polysaccharide, 00:00:00 [place] [facility] PPSV23 (PNEUMOVAX) Branch Influenza Virus 2012-02-16 Completed [facility]it y of Vaccine 00:00:00 [facility] PPD (TB) 2012-02-16 Completed [facility] of 00:00:00 [facility] Pneumococcal 2012-02-16 Completed [facility] o f Polysaccharide, 00:00:00 [place] [facility] PPSV23 (PNEUMOVAX) Branch Influenza [...] Completed University o f Polysaccharide, 00:00:00 [place] [facility] PPSV23 (PNEUMOVAX) Branch Influenza Virus 2012-02-16 Completed [facility]it y of Vaccine 00:00:00 [facility] PPD (TB) 2012-02-16 Completed [facility] of 00:00:00 [facility] Pneumococcal 2012-02-16 Completed University o f Polysaccharide, 00:00:00 [place] [facility] PPSV23 (PNEUMOVAX) Branch Influenza Virus 2012-02-16 Completed [facility]it y of Vaccine 00:00:00 [facility] PPD (TB) 2012-02-16 Completed [facility] of 00:00:00 [facility] Pneumococcal 2012-02-16 Completed [facility] o f Polysaccharide, 00:00:00 [place] [facility] PPSV23 (PNEUMOVAX) Branch Influenza Virus 2012-02-16 Completed [facility]it y of Vaccine 00:00:00 [facility] PPD (TB) 2012-02-16 Completed [facility] of 00:00:00 [facility] Pneumococcal 2012-02-16 Completed [facility] o f Polysaccharide, 00:00:00 [place] [facility] PPSV23 (PNEUMOVAX) Branch Influenza Virus 2012-02-16 Completed [facility] of Vaccine 00:00:00 [facility] PPD (TB) 2012-02-16 Completed [facility] of 00:00:00 [facility] Pneumococcal 2012-02-16 Completed [facility] o f Polysaccharide, 00:00:00 [place] [facility] PPSV23 (PNEUMOVAX) Branch Influenza [...] Completed [facility] o f Polysaccharide, 00:00:00 [place] [facility] PPSV23 (PNEUMOVAX) Branch Influenza Virus 2012-02-16 Completed [facility] of Vaccine 00:00:00 [facility] PPD (TB) 2012-02-16 Completed [facility] of 00:00:00 [facility] Pneumococcal 2012-02-16 Completed [facility] o f Polysaccharide, 00:00:00 [place] [facility] PPSV23 (PNEUMOVAX) Branch Influenza [...] Completed Unive rsity of Dosage 00:00:00 [facility] Hep B, Adol or Pedi 2011-03-17 Completed Unive rsity of Dosage 00:00:00 [facility] Hep B, Adol or Pedi 2011-03-17 Completed Unive rsity of Dosage 00:00:00 [facility] Hep B, Adol or Pedi 2011-03-17 Completed Unive rsity of Dosage 00:00:00 [facility] Hep B, Adol or Pedi 2011-03-17 Completed Unive rsity of Dosage 00:00:00 [facility] Hep B, Adol or [...] Completed Universit y of Vaccine 00:00:00 [facility] Hep B, Adol or Pedi 2011-02-10 Completed Unive rsity of Dosage 00:00:00 [facility] Influenza Virus 2011-02-10 Completed Universit y of Vaccine 00:00:00 [facility] Hep B, Adol or Pedi 2011-02-10 [...] Completed Universit y of Vaccine 00:00:00 [facility] Hep B, Adol or Pedi 2011-02-10 [...] Completed Universit y of Vaccine 00:00:00 [facility] Hep B, Adol or Pedi 2011-02-10 Completed Unive rsity of Dosage 00:00:00 [facility] Influenza Virus 2011-02-10 Completed Universit y of Vaccine 00:00:00 [facility] Hep B, Adol or Pedi 2011-02-10 [...] Completed Universit y of Vaccine 00:00:00 [facility] Hep B, Adol or Pedi 2011-02-10 Completed Unive rsity of Dosage 00:00:00 [facility] Influenza Virus 2011-02-10 Completed Universit y of Vaccine 00:00:00 [facility] Hep B, Adol or Pedi 2011-02-10 Completed Unive rsity of Dosage 00:00:00 [facility] Influenza Virus 2011-02-10 Completed Universit y of Vaccine 00:00:00 [facility] Hep B, Adol or Pedi 2011-02-10 Completed Unive rsity of Dosage 00:00:00 [facility] Influenza Virus 2011-02-10 Completed Universit y of Vaccine 00:00:00 [facility] Hep B, Adol or Pedi 2011-02-10 [...] PPD (TB) 2010-11-18 Completed University of 00:00:00 [facility] TDAP (ADACEL) 2010-11-18 Completed University of VACCINE 00:00:00 [facility] PPD (TB) 2010-11-18 Completed University of 00:00:00 [facility] TDAP (ADACEL) 2010-11-18 Completed University of VACCINE 00:00:00 [facility] PPD (TB) 2010-11-18 Completed University of 00:00:00 [facility] TDAP (ADACEL) 2010-11-18 Completed University of VACCINE 00:00:00 [facility] PPD (TB) 2010-11-18 Completed [facility] of 00:00:00 [facility] TDAP (ADACEL) 2010-11-18 Completed University of [...] PPD (TB) 2010-11-18 Completed University of 00:00:00 [facility] TDAP (ADACEL) 2010-11-18 Completed University of VACCINE 00:00:00 [facility] PPD (TB) 2010-11-18 Completed [facility] of 00:00:00 [facility] TDAP (ADACEL) 2010-11-18 Completed University of VACCINE 00:00:00 [facility] PPD (TB) 2010-11-18 Completed [facility] of 00:00:00 [facility] TDAP (ADACEL) 2010-11-18 Completed University of VACCINE 00:00:00 [facility] PPD (TB) 2010-11-18 Completed University of [...] HEPATITIS A 2004-03-02 Completed University of 00:00:00 [facility] HEPATITIS A 2004-03-02 Completed [facility] of 00:00:00 [facility] HEPATITIS A 2004-03-02 Completed [facility] of 00:00:00 [facility] HEPATITIS A 2004-03-02 Completed [facility] of 00:00:00 [facility] HEPATITIS A 2004-03-02 Completed [facility] of 00:00:00 [facility] HEPATITIS A 2004-03-02 Completed [facility] of 00:00:00 [facility] HEPATITIS A 2004-03-02 Completed [facility] of 00:00:00 [facility] HEPATITIS A 2004-03-02 Completed [facility] of 00:00:00 [facility] HEPATITIS A 2004-03-02 Completed [facility] of 00:00:00 [facility] HEPATITIS A 2004-03-02 Completed [facility] of 00:00:00 [facility] HEPATITIS A 2004-03-02 Completed [facility] of 00:00:00 [facility] HEPATITIS A 2004-03-02 Completed [facility] of 00:00:00 [facility] HEPATITIS A 2004-03-02 Completed [facility] of 00:00:00 [facility] HEPATITIS A 2004-03-02 Completed [facility] of 00:00:00 [facility] HEPATITIS A 2004-03-02 Completed [facility] of 00:00:00 [facility] HEPATITIS A 2004-03-02 Completed [facility] of 00:00:00 [facility] HEPATITIS A 2004-03-02 Completed [facility] of 00:00:00 [facility] HEPATITIS A 2004-03-02 Completed [facility] of 00:00:00 [facility] HEPATITIS A 2004-03-02 Completed [facility] of 00:00:00 [facility] HEPATITIS A 2004-03-02 Completed [facility] of 00:00:00 [facility] HEPATITIS A 2004-03-02 Completed [facility] of 00:00:00 [facility] HEPATITIS A 2004-03-02 Completed University of 00:00:00 [facility] HEPATITIS A 2003-08-01 Completed [facility] of 00:00:00 [facility] HEPATITIS A 2003-08-01 Completed [facility] of 00:00:00 [facility] HEPATITIS A 2003-08-01 Completed [facility] of 00:00:00 [facility] HEPATITIS A 2003-08-01 Completed [facility] of 00:00:00 [facility] HEPATITIS A 2003-08-01 Completed [facility] of 00:00:00 [facility] HEPATITIS A 2003-08-01 Completed [facility] of 00:00:00 [facility] HEPATITIS A 2003-08-01 Completed [facility] of 00:00:00 [facility] HEPATITIS A 2003-08-01 Completed [facility] of 00:00:00 [facility] HEPATITIS A 2003-08-01 Completed [facility] of 00:00:00 [facility] HEPATITIS A 2003-08-01 Completed [facility] of 00:00:00 [facility] HEPATITIS A 2003-08-01 Completed [facility] of 00:00:00 [facility] HEPATITIS A 2003-08-01 Completed [facility] of 00:00:00 [facility] HEPATITIS A 2003-08-01 Completed [facility] of 00:00:00 [facility] HEPATITIS A 2003-08-01 Completed [facility] of 00:00:00 [facility] HEPATITIS A 2003-08-01 Completed [facility] of 00:00:00 [facility] HEPATITIS A 2003-08-01 Completed [facility] of 00:00:00 [facility] HEPATITIS A 2003-08-01 Completed [facility] of 00:00:00 [facility] HEPATITIS A 2003-08-01 Completed [facility] of 00:00:00 [facility] HEPATITIS A 2003-08-01 Completed [facility] of 00:00:00 [facility] HEPATITIS A 2003-08-01 Completed [facility] of 00:00:00 [facility] HEPATITIS A 2003-08-01 Completed [facility] of 00:00:00 [facility] HEPATITIS A 2003-08-01 Completed [facility] of 00:00:00 [facility] Pneumococcal 2001-10-04 Completed [facility] o f Polysaccharide, 00:00:00 [place] [facility] PPSV23 (PNEUMOVAX) Branch PPD (TB) 2001-10-04 Completed [facility] of 00:00:00 [facility] Pneumococcal 2001-10-04 Completed [facility] o f Polysaccharide, 00:00:00 [place] [facility] PPSV23 (PNEUMOVAX) Branch PPD (TB) 2001-10-04 Completed [facility] of 00:00:00 [facility] Pneumococcal 2001-10-04 Completed [facility] o f Polysaccharide, 00:00:00 [place] [facility] PPSV23 (PNEUMOVAX) Branch PPD (TB) 2001-10-04 Completed [facility] of 00:00:00 [facility] Pneumococcal 2001-10-04 Completed [facility] o f Polysaccharide, 00:00:00 [place] [facility] PPSV23 (PNEUMOVAX) Branch PPD (TB) 2001-10-04 Completed [facility] of 00:00:00 [facility] Pneumococcal 2001-10-04 Completed [facility] o f Polysaccharide, 00:00:00 [place] [facility] PPSV23 (PNEUMOVAX) Branch PPD (TB) 2001-10-04 Completed [facility] of 00:00:00 [facility] Pneumococcal 2001-10-04 Completed [facility] o f Polysaccharide, 00:00:00 [place] [facility] PPSV23 (PNEUMOVAX) Branch PPD (TB) 2001-10-04 Completed [facility] of 00:00:00 [facility] Pneumococcal 2001-10-04 Completed [facility] o f Polysaccharide, 00:00:00 [place] [facility] PPSV23 (PNEUMOVAX) Branch PPD (TB) 2001-10-04 Completed [facility] of 00:00:00 [facility] Pneumococcal 2001-10-04 Completed [facility] o f Polysaccharide, 00:00:00 [place] [facility] PPSV23 (PNEUMOVAX) Branch PPD (TB) 2001-10-04 Completed [facility] of 00:00:00 [facility] Pneumococcal 2001-10-04 Completed [facility] o f Polysaccharide, 00:00:00 [place] [facility] PPSV23 (PNEUMOVAX) Branch PPD (TB) 2001-10-04 Completed [facility] of 00:00:00 [facility] Pneumococcal 2001-10-04 Completed [facility] o f Polysaccharide, 00:00:00 [place] [facility] PPSV23 (PNEUMOVAX) Branch PPD (TB) 2001-10-04 Completed [facility] of 00:00:00 [facility] Pneumococcal 2001-10-04 Completed University o f Polysaccharide, 00:00:00 [place] [facility] PPSV23 (PNEUMOVAX) Branch PPD (TB) 2001-10-04 Completed [facility] of 00:00:00 [facility] Pneumococcal 2001-10-04 Completed University o f Polysaccharide, 00:00:00 [place] [facility] PPSV23 (PNEUMOVAX) Branch PPD (TB) 2001-10-04 Completed University of 00:00:00 [facility] Pneumococcal 2001-10-04 Completed University o f Polysaccharide, 00:00:00 [place] [facility] PPSV23 (PNEUMOVAX) Branch PPD (TB) 2001-10-04 Completed University of 00:00:00 [facility] Pneumococcal 2001-10-04 Completed University o f Polysaccharide, 00:00:00 [place] [facility] PPSV23 (PNEUMOVAX) Branch PPD (TB) 2001-10-04 Completed [facility] of 00:00:00 [facility] Pneumococcal 2001-10-04 Completed University o f Polysaccharide, 00:00:00 [place] [facility] PPSV23 (PNEUMOVAX) Branch PPD (TB) 2001-10-04 Completed University of 00:00:00 [facility] Pneumococcal 2001-10-04 Completed University o f Polysaccharide, 00:00:00 [place] [facility] PPSV23 (PNEUMOVAX) Branch PPD (TB) 2001-10-04 Completed [facility] of 00:00:00 [facility] Pneumococcal 2001-10-04 Completed University o f Polysaccharide, 00:00:00 [place] [facility] PPSV23 (PNEUMOVAX) Branch PPD (TB) 2001-10-04 Completed [facility] of 00:00:00 [facility] Pneumococcal 2001-10-04 Completed University o f Polysaccharide, 00:00:00 [place] [facility] PPSV23 (PNEUMOVAX) Branch PPD (TB) 2001-10-04 Completed [facility] of 00:00:00 [facility] Pneumococcal 2001-10-04 Completed University o f Polysaccharide, 00:00:00 [place] [facility] PPSV23 (PNEUMOVAX) Branch PPD (TB) 2001-10-04 Completed [facility] of 00:00:00 [facility] Pneumococcal 2001-10-04 Completed University o f Polysaccharide, 00:00:00 [place] [facility] PPSV23 (PNEUMOVAX) Branch PPD (TB) 2001-10-04 Completed [facility] of 00:00:00 [facility] Pneumococcal 2001-10-04 Completed University o f Polysaccharide, 00:00:00 [place] [facility] PPSV23 (PNEUMOVAX) Branch PPD (TB) 2001-10-04 Completed [facility] of 00:00:00 [facility] Pneumococcal 2001-10-04 Completed University o f Polysaccharide, 00:00:00 [place] [facility] PPSV23 (PNEUMOVAX) Branch PPD (TB) 2001-10-04 Completed [facility] of 00:00:00 [facility] Vital Signs Vital Name Observation Time Observation Value Comments Source Systolic blood 2022-05-10 22:00:00 159 mm[Hg] Univer sity of pressure [facility] Diastolic blood 2022-05-10 22:00:00 87 mm[Hg] Unive rsity of pressure [place] [facility] Heart rate 2022-05-10 22:00:00 56 /min [facility] [place] [facility] Body temperature 2022-05-10 22:00:00 36.61 Amina Univ ersity [facility] [place] [facility] Respiratory rate 2022-05-10 22:00:00 17 /min Univ ers[facility] [place] [facility] Oxygen saturation in 2022-05-10 22:00:00 98 /min University of Arterial blood by [facility] porfirio Pulse oximetry Branch Body weight 2022-05-10 [...] /min University of Arterial blood by [place] [employer] porfirio Pulse oximetry Branch Body temperature 2022-05-08 [...] Medi porfirio Pulse oximetry Branch Body temperature 2022-05-06 20:12:00 36.5 Amina [facility] [place] [facility] Body height 2022-05-06 20:12:00 162.6 cm [facility] [place] [facility] Body weight 2022-05-06 20:12:00 78.926 kg [facility] [place] [facility] BMI 2022-05-06 20:12:00 29.87 kg/m2 [facility] [place] [facility] Systolic blood 2022-04-22 19:50:00 156 mm[Hg] Univer sity of pressure [place] [facility] Diastolic blood 2022-04-22 19:50:00 89 mm[Hg] Unive rsity of pressure [facility] [place] [facility] Heart rate 2022-04-22 19:50:00 69 /min [facility] [place] [facility] Body temperature 2022-04-22 19:50:00 36.67 Amina Univ ers[facility] [place] [facility] Respiratory rate 2022-04-22 19:50:00 17 /min Univ ersity [facility] [place] [facility] Body height 2022-04-22 19:50:00 162.6 cm [facility] [place] [facility] Body weight 2022-04-22 19:50:00 80.74 kg [facility] [place] [facility] BMI 2022-04-22 19:50:00 30.55 kg/m2 [facility] [place] [facility] Oxygen saturation in 2022-04-22 19:50:00 96 /min University of Arterial blood by [facility] Pulse oximetry Branch Systolic blood 2022-03-05 15:23:00 167 mm[Hg] Univer sity of pressure [facility] [place] [facility] Diastolic blood 2022-03-05 15:23:00 105 mm[Hg] Unive rsity of pressure [facility] [place] [facility] Heart rate 2022-03-05 15:23:00 49 /min [facility] [place] [facility] Body temperature 2022-03-05 15:18:00 36.67 Amina [facility] [place] [facility] Respiratory rate 2022-03-05 15:18:00 18 /min Univ ersity [facility] [place] [facility] Body height 2022-03-05 15:18:00 162.6 cm [facility] [place] [facility] Body weight 2022-03-05 15:18:00 74.707 kg [facility] [place] [facility] BMI 2022-03-05 15:18:00 28.27 kg/m2 [facility] [place] [facility] Systolic blood 2022-02-16 21:41:00 169 mm[Hg] Univer sity of pressure [facility] [place] [facility] Diastolic blood 2022-02-16 21:41:00 86 mm[Hg] Unive rsity of pressure [facility] Heart rate 2022-02-16 21:41:00 51 /min [facility] [place] [facility] [place] Body temperature 2022-02-16 21:41:00 36.56 Amina Univ [facility] [place] [facility] Respiratory rate 2022-02-16 21:41:00 17 /min Univ ersity of [facility] Oxygen saturation in 2022-02-16 21:41:00 98 /min [facility] Arterial blood by [facility] Pulse oximetry Branch Body height 2022-02-11 16:02:00 162.6 cm [facility] [place] [facility] [place] Body weight 2022-02-11 16:02:00 79.379 kg [facility] [place] [facility] [place] BMI 2022-02-11 16:02:00 30.04 kg/m2 [facility] [place] [facility] Systolic blood 2021-11-20 13:47:00 165 mm[Hg] Univer sity of pressure [place] [facility] [place] Diastolic blood 2021-11-20 13:47:00 83 mm[Hg] Unive rsity of pressure [facility] Heart rate 2021-11-20 13:47:00 58 /min [facility] [place] [facility] [place] Body temperature 2021-11-20 13:42:00 36.39 Amina Univ ersity of [facility] Respiratory rate 2021-11-20 13:42:00 16 /min Univ ersity [facility] [place] [facility] [place] Body height 2021-11-20 13:42:00 162.6 cm [facility] [place] [facility] Body weight 2021-11-20 13:42:00 84.369 kg [facility] [place] [facility] BMI 2021-11-20 13:42:00 31.93 kg/m2 [facility] [place] [facility] Systolic blood 2021-07-14 15:18:00 142 [...] 22:00:00 159 mm[Hg] Univer sity of pressure [facility] [place] [facility] Diastolic blood 2022-05-10 22:00:00 87 mm[Hg] Unive rsity of pressure [facility] [place] [facility] Heart rate 2022-05-10 22:00:00 56 /min [facility] [place] [facility] Body temperature 2022-05-10 22:00:00 36.61 Amina [facility] [place] [facility] Respiratory rate 2022-05-10 22:00:00 17 /min [facility] [place] [facility] Oxygen saturation in 2022-05-10 22:00:00 98 /min University Arterial blood by [facility] Pulse oximetry Branch Body weight 2022-05-10 16:29:00 78.926 kg [facility] [place] [facility] BMI 2022-05-10 16:29:00 29.87 kg/m2 [facility] [place] [facility] Body height 2022-05-06 20:12:00 162.6 cm [facility] [place] [facility] Systolic blood 2022-03-05 15:23:00 167 mm[Hg] Univer sity of pressure [facility] [place] [facility] Diastolic blood 2022-03-05 15:23:00 105 mm[Hg] Unive rsity of pressure [facility] [place] [facility] Heart rate 2022-03-05 15:23:00 49 /min [facility] [place] [facility] Body temperature 2022-03-05 15:18:00 36.67 Amina [facility] [place] [facility] Respiratory rate 2022-03-05 15:18:00 18 /min Univ [facility] [place] [facility] Body height 2022-03-05 15:18:00 162.6 cm [facility] [place] [facility] Body weight 2022-03-05 15:18:00 74.707 kg [facility] [place] [facility] BMI 2022-03-05 15:18:00 28.27 kg/m2 [facility] [place] [facility] Oxygen saturation in 2022-02-16 21:41:00 98 /min University of Arterial blood by [facility] Pulse oximetry Branch Systolic blood 2020-12-08 15:48:00 125 mm[Hg] Method [facility] pressure Diastolic blood 2020-12-08 15:48:00 76 mm[Hg] [facility] pressure Heart rate 2020-12-08 15:48:00 64 /min [facility] Body temperature 2020-12-08 15:48:00 36.61 Amina [facility] Respiratory rate 2020-12-08 15:48:00 17 /min [facility] Body height 2020-12-08 15:48:00 162.6 cm [facility] Body weight 2020-12-08 15:48:00 98.884 kg [facility] BMI 2020-12-08 15:48:00 37.42 kg/m2 [facility] Oxygen saturation in 2020-12-08 15:48:00 97 /min [facility] Arterial blood by Pulse oximetry Respitory Rate 2020-08-30 13:00:00 Memori al [place] Systolic (mm Hg) 2020-08-30 13:00:00 Caesar rial [place] Diastolic (mm Hg) 2020-08-30 13:00:00 Mem orial [place] Systolic (mm Hg) 2020-08-30 11:00:00 Caesar rial [place] Diastolic (mm Hg) 2020-08-30 11:00:00 Mem orial [place] Temperature Oral (F) 2020-08-30 11:00:00 98.4 F [facility] [place] Respitory Rate 2020-08-30 11:00:00 Memori al [place] Respitory Rate 2020-08-30 10:00:00 Memori al [place] Systolic (mm Hg) 2020-08-30 10:00:00 Caesar rial [place] Diastolic (mm Hg) 2020-08-30 10:00:00 Mem orial [place] Temperature Oral (F) 2020-08-30 00:00:00 96.9 F [facility] [place] Temperature Oral (F) 2020-08-29 11:26:00 97.6 F [facility] Height 2020-08-29 10:30:00 162.56 cm [facility] [place] Weight 2020-08-29 10:30:00 [facility] Calculated 2020-08-29 10:30:00 Darien Hammond Procedures Procedure Date / Time Performing Clinician Source Performed URINALYSIS 2022-05-10 19:36:00 Home Matthews [facility] TROPONIN I 2022-05-10 18:34:00 Home Matthews [facility] COMP. METABOLIC PANEL 2022-05-10 18:34:00 Home Matthews [facility] ([id number]) [facility] CBC WITH DIFF 2022-05-10 18:34:00 Home Matthews [facility] XR CHEST 2 VW 2022-05-10 17:24:58 Home Matthwes [facility] CONSENT/REFUSAL FOR 2022-05-10 16:26:23 Doctor Unaeunice [facility] DIAGNOSIS AND TREATMENT [place] [facility] CONSENT/REFUSAL FOR 2022-05-10 16:26:09 Doctor Unasimone, [facility] 2022-05-08 22:43:00 Theresa Hickman [facility] XR CHEST 2 VW 2022-05-06 22:56:53 Anette Olea [facility] COMP. METABOLIC PANEL 2022-05-06 22:14:00 Anette Olea [facility] ([id number]) Medical Branch CBC WITH DIFF 2022-05-06 22:14:00 Anette Olea [facility] COVID-19 (ID NOW RAPID 2022-05-06 22:14:00 Anette Olea [facility] TESTING) Medical Branch BASIC METABOLIC PANEL (NA, 2022-04-22 21:23:00 Paulette Gray [facility] K, CL, CO2, GLUCOSE, BUN, Medica l Branch CREATININE, CA) CBC WITH DIFF 2022-04-22 21:23:00 Paulette Gray Geary o [facility] CONSENT/REFUSAL FOR 2022-04-22 19:45:46 Doctor Daron [facility] DIAGNOSIS [facility] SARS-COV-2 COVID-19 2022-03-05 16:09:27 [facility] DIMITRIS-SUCROSE VACCINE 12 [facility] YRS+, BIVALENT 0.3ML, IM, (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) FLU 2022-03-05 16:09:27 [facility] VACC(),65+YR,0.5 Medica l Branch ML,IM,ADJUVANTED,QUAD(FLUA D) FLU 2022-03-05 16:09:27 [facility] VACC(),65+YR,0.5 Medica l Branch ML,IM,ADJUVANTED,QUAD(FLUA D) SARS-COV-2 COVID-19 2022-03-05 16:09:27 [facility] DIMITRIS-SUCROSE VACCINE [address] [place] [address] YRS+, BIVALENT 0.3ML, IM, (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) MAGNESIUM 2022-02-15 09:41:00 Sofia Garcia [facility] BASIC METABOLIC PANEL (NA, 2022-02-15 09:41:00 Radha [facility] K, CL, CO2, GLUCOSE, BUN, Medica l Branch CREATININE, CA) CBC WITH DIFF 2022-02-15 09:41:00 Radha [facility] N-TERMINAL PRO-BNP 2022-02-15 09:41:00 Sofia [facility] CBC WITH DIFF 2022-02-15 09:41:00 Sofia Garcia [facility] BASIC METABOLIC PANEL (NA, 2022-02-15 09:41:00 Sofia Garcia [facility] K, CL, CO2, GLUCOSE, BUN, Medica l Branch CREATININE, CA) MAGNESIUM 2022-02-15 09:41:00 Radha Sofia [facility] N-TERMINAL PRO-BNP 2022-02-15 09:41:00 Sofia Garcia [facility] BASIC METABOLIC PANEL (NA, 2022-02-13 09:40:00 Sofia Garcia [facility] K, CL, CO2, GLUCOSE, BUN, Medica l Branch CREATININE, CA) CBC WITH DIFF 2022-02-13 09:40:00 Garcia, [facility] BASIC METABOLIC PANEL (NA, 2022-02-13 09:40:00 Radha [facility] K, CL, CO2, GLUCOSE, BUN, Medica l Branch CREATININE, CA) CBC WITH DIFF 2022-02-13 09:40:00 Radha [facility] TROPONIN I 2022-02-11 23:41:00 Radha [facility] N-TERMINAL PRO-BNP 2022-02-11 23:41:00 Radha [facility] TROPONIN I 2022-02-11 23:41:00 Radha [facility] N-TERMINAL PRO-BNP 2022-02-11 23:41:00 [facility] & RHYTHM 2022-02-11 22:15:36 Sofia Garcia [facility] TRANSTHORACIC ECHO (TTE) 2022-02-11 21:26:50 Sofia Garcia [facility] TRANSTHORACIC ECHO (TTE) 2022-02-11 21:26:50 Sofia Garcia [facility] CT ABDOMEN PELVIS W 2022-02-11 07:45:43 Reilly Means [facility] CT ABDOMEN PELVIS W 2022-02-11 07:45:43 Reilly Means [facility] RAPID INFLUENZA A/B 2022-02-11 06:54:00 Reilly Means [facility] RAPID INFLUENZA A/B 2022-02-11 06:54:00 Reilly Means [facility] URINALYSIS 2022-02-11 06:45:00 Miguelangel Reilly [facility] URINE CULTURE 2022-02-11 06:45:00 Reilly Means [facility] URINALYSIS 2022-02-11 06:45:00 Reilly Means [facility] URINE CULTURE 2022-02-11 06:45:00 Reilly Means [facility] HB ECG ROUTINE & RHYTHM 2022-02-11 05:22:08 Reilly Means [facility] HB ECG ROUTINE & RHYTHM 2022-02-11 05:22:08 Reilly Means [facility] BLOOD CULTURE SCREEN 2022-02-11 04:58:00 Reilly Means [facility] TROPONIN I 2022-02-11 04:58:00 Reilly Means [facility] COMP. METABOLIC PANEL 2022-02-11 04:58:00 Reilly Means [facility] ([id number]) Medical Branch CBC WITH DIFF 2022-02-11 04:58:00 Reilly Means [facility] PROTHROMBIN TIME / INR 2022-02-11 04:58:00 Reilly Means [facility] ACTIVATED PARTIAL THRMPLAS 2022-02-11 04:58:00 Reilly Means [facility] N-TERMINAL PRO-BNP 2022-02-11 04:58:00 Reilly Means [facility] LACTIC ACID WHOLE BLOOD 2022-02-11 04:58:00 Rielly Means [facility] COVID-19 (ID NOW RAPID 2022-02-11 04:58:00 Reilly Means [facility] TESTING) Medical Branch LAB ONLY COVID 2022-02-11 04:58:00 Reilly Means [facility] Branch CBC WITH DIFF 2022-02-11 04:58:00 Reilly Means [facility] ACTIVATED PARTIAL THRMPLAS 2022-02-11 04:58:00 Reilly Means [facility] PROTHROMBIN TIME / INR 2022-02-11 04:58:00 Reilly Means [facility] COVID-19 (ID NOW RAPID 2022-02-11 04:58:00 Reilly Means [facility] TESTING) Medical Branch COMP. METABOLIC PANEL 2022-02-11 04:58:00 Reilly Means [facility] ([id number]) Medical Branch TROPONIN I 2022-02-11 04:58:00 Reilly Means [facility] N-TERMINAL PRO-BNP 2022-02-11 04:58:00 Reilly Means [facility] BLOOD CULTURE SCREEN 2022-02-11 04:58:00 Reilly Means [facility] LACTIC ACID WHOLE BLOOD 2022-02-11 04:58:00 Reilly Means [facility] LAB ONLY COVID 2022-02-11 04:58:00 Reilly Means [facility] INTERPRETATION [facility] XR CHEST 1 VW 2022-02-11 04:27:42 Miguelangel Reilly [facility] XR CHEST 1 VW 2022-02-11 04:27:42 Reilly Means [facility] HOSPITAL ADMISSION 2022-02-10 05:01:00 Doctor Unassigned, [facility] Name [facility] HOSPITAL ADMISSION 2022-02-10 05:01:00 Doctor Unassigned, [facility] ECG 12-LEAD 2021-07-14 15:14:00 Elan Lira [facility] [id number] 2021-06-17 00:00:00 GRACEA [facility] GASTROINTESTINAL PANEL 2020-12-08 22:21:00 Jailyn [facility] XR ABDOMEN 1 VW 2020-12-08 18:06:32 Eliseo Arce [facility] [place] < 1 HOUR 2020-09-05 22:39:00 Eliseo Arce [facility] SURGICAL PATHOLOGY REQUEST 2020-09-05 21:54:00 Eliseo Arce [facility] XR CHEST 1 VW PORTABLE 2020-09-05 19:55:00 Jailyn [facility] DISCHARGE PATIENT 2020-09-05 17:27:55 Lucas Harris [facility] OR AN ELECTIVE 2020-09-05 16:47:23 Kirit Flood V. [facility] ENDOTRACHEAL AIRWAY EGD, INTRAOPERATIVE 2020-09-05 16:27:00 [facility] 2020-09-05 15:04:00 Sarai Maharaj [facility] TIME (PTT) M. PROTHROMBIN TIME WITH INR 2020-09-05 15:04:00 Mindy Maharaj [facility] M. Plan of Care Planned Activity Planned Date Details Comments Source Future Scheduled 2022-10-27 Screening for [facility] Test 22:40:19 malignant neoplasm of colon (procedure) [code = 900572484] Future Scheduled 2022-10-27 Screening for [facility] Test 22:40:19 malignant neoplasm of colon (procedure) [code = 197359991] Future Scheduled 2022-10-27 Screening for [facility] Test 22:40:19 malignant neoplasm of colon (procedure) [code = [id number]] Future Scheduled 2022-10-27 SHINGLES VACCINES (1 Met [facility] Test 22:40:19 of 2) [code = SHINGLES VACCINES (1 of 2)] Future Scheduled 2022-10-27 BREAST CANCER [facility] Test 22:40:19 SCREENING [code = BREAST CANCER SCREENING] Future Scheduled 2022-10-27 Screening for [facility] Test 22:40:19 malignant neoplasm of colon (procedure) [code = 247561380] Future Scheduled 2022-10-27 Screening for [facility] Test 22:40:19 malignant neoplasm of colon (procedure) [code = [id number]] Future Scheduled 2022-10-27 HEPATITIS B VACCINES Met [facility] Test 22:40:19 (1 of 3 - Risk 3-dose series) [code = HEPATITIS B VACCINES (1 of 3 - Risk 3-dose series)] Future Scheduled 2022-10-27 COVID-19 VACCINE (3 - [facility] Test 22:40:19 Pfizer series) [code = COVID-19 VACCINE (3 - Pfizer series)] Future Scheduled 2022-10-27 65+ [facility]AL [facility]:19 VACCINE (4 - PPSV23 if available, else PCV20) [code = 65+ PNEUMOCOCCAL VACCINE (4 - PPSV23 if available, else PCV20)] Future Scheduled 2022-10-27 INFLUENZA VACCINE Method [facility] Test 22:40:19 [code = INFLUENZA VACCINE] Future Scheduled 2022-09-10 SHINGLES VACCINES (1 Met [facility] Test 15:06:53 of 2) [code = SHINGLES VACCINES (1 of 2)] Future Scheduled 2022-09-10 BREAST CANCER [facility] Test 15:06:53 SCREENING [code = BREAST CANCER SCREENING] Future Scheduled 2022-09-10 COLONOSCOPY SCREENING [facility] Test 15:06:53 [code = COLONOSCOPY SCREENING] Future Scheduled 2022-09-10 HEPATITIS B VACCINES Met [facility] Test 15:06:53 (1 of 3 - Risk 3-dose series) [code = HEPATITIS B VACCINES (1 of 3 - Risk 3-dose series)] Future Scheduled 2022-09-10 COVID-19 VACCINE (3 - [facility] Test 15:06:53 Booster for Pfizer series) [code = COVID-19 VACCINE (3 - Booster for Pfizer series)] Future Scheduled 2022-09-10 65+ [facility]CCAL [facility] 15:06:53 VACCINE (4 - PPSV23 if available, else PCV20) [code = 65+ PNEUMOCOCCAL VACCINE (4 - PPSV23 if available, else PCV20)] Future Scheduled 2022-09-10 INFLUENZA VACCINE Method [facility] Test 15:06:53 [code = INFLUENZA VACCINE] Future Scheduled 2022-09-10 SHINGLES VACCINES (1 Met [facility] Test 15:06:53 of 2) [code = SHINGLES VACCINES (1 of 2)] Future Scheduled 2022-09-10 BREAST CANCER [facility] Test 15:06:53 SCREENING [code = BREAST CANCER SCREENING] Future Scheduled 2022-09-10 COLONOSCOPY SCREENING [facility] Test 15:06:53 [code = COLONOSCOPY SCREENING] Future Scheduled 2022-09-10 HEPATITIS B VACCINES Met [facility] Test 15:06:53 (1 of 3 - Risk 3-dose series) [code = HEPATITIS B VACCINES (1 of 3 - Risk 3-dose series)] Future Scheduled 2022-09-10 COVID-19 VACCINE (3 - Me [facility] Test 15:06:53 Booster for Pfizer series) [code = COVID-19 VACCINE (3 - Booster for Pfizer series)] Future Scheduled 2022-09-10 65+ [facility]CCAL [facility] 15:06:53 VACCINE (4 - PPSV23 if available, else PCV20) [code = 65+ PNEUMOCOCCAL VACCINE (4 - PPSV23 if available, else PCV20)] Future Scheduled 2022-09-10 INFLUENZA VACCINE [facility] Test 15:06:53 [code = INFLUENZA VACCINE] Future Scheduled 2022-09-10 SHINGLES VACCINES (1 Met [facility] Test 15:06:53 of 2) [code = SHINGLES VACCINES (1 of 2)] Future Scheduled 2022-09-10 BREAST CANCER [facility] Test 15:06:53 SCREENING [code = BREAST CANCER SCREENING] Future Scheduled 2022-09-10 COLONOSCOPY SCREENING [facility] Test 15:06:53 [code = COLONOSCOPY SCREENING] Future Scheduled 2022-09-10 HEPATITIS B VACCINES Met [facility] Test 15:06:53 (1 of 3 - Risk 3-dose series) [code = HEPATITIS B VACCINES (1 of 3 - Risk 3-dose series)] Future Scheduled 2022-09-10 COVID-19 VACCINE (3 - Me [facility] Test 15:06:53 Booster for Pfizer series) [code = COVID-19 VACCINE (3 - Booster for Pfizer series)] Future Scheduled 2022-09-10 65+ [facility]CCAL [facility] 15:06:53 VACCINE (4 - PPSV23 if available, else PCV20) [code = 65+ PNEUMOCOCCAL VACCINE (4 - PPSV23 if available, else PCV20)] Future Scheduled 2022-09-10 INFLUENZA VACCINE [facility] Test 15:06:53 [code = INFLUENZA VACCINE] Future Scheduled 2022-09-10 SHINGLES VACCINES (1 Met [facility] Test 15:06:53 of 2) [code = SHINGLES VACCINES (1 of 2)] Future Scheduled 2022-09-10 BREAST CANCER [facility] Test 15:06:53 SCREENING [code = BREAST CANCER SCREENING] Future Scheduled 2022-09-10 COLONOSCOPY SCREENING [facility] Test 15:06:53 [code = COLONOSCOPY SCREENING] Future Scheduled 2022-09-10 HEPATITIS B VACCINES Met [facility] Test 15:06:53 (1 of 3 - Risk 3-dose series) [code = HEPATITIS B VACCINES (1 of 3 - Risk 3-dose series)] Future Scheduled 2022-09-10 COVID-19 VACCINE (3 - [facility] Test 15:06:53 Booster for Pfizer series) [code = COVID-19 VACCINE (3 - Booster for Pfizer series)] Future Scheduled 2022-09-10 65+ [facility] 15:06:53 VACCINE (4 - PPSV23 if available, else PCV20) [code = 65+ PNEUMOCOCCAL VACCINE (4 - PPSV23 if available, else PCV20)] Future Scheduled 2022-09-10 [facility]ACCINE [facility] 15:06:53 [code = INFLUENZA VACCINE] Future Scheduled 2022-09-10 SHINGLES VACCINES (1 [facility] Test 15:06:53 of 2) [code = SHINGLES VACCINES (1 of 2)] Future Scheduled 2022-09-10 BREAST CANCER [facility] Test 15:06:53 SCREENING [code = BREAST CANCER SCREENING] Future Scheduled 2022-09-10 COLONOSCOPY SCREENING [facility] Test 15:06:53 [code = COLONOSCOPY SCREENING] Future Scheduled 2022-09-10 HEPATITIS B VACCINES [facility] Test 15:06:53 (1 of 3 - Risk 3-dose series) [code = HEPATITIS B VACCINES (1 of 3 - Risk 3-dose series)] Future Scheduled 2022-09-10 COVID-19 VACCINE (3 - [facility] Test 15:06:53 Booster for Pfizer series) [code = COVID-19 VACCINE (3 - Booster for Pfizer series)] Future Scheduled 2022-09-10 65+ [facility]:06:[facility] VACCINE (4 - PPSV23 if available, else PCV20) [code = 65+ PNEUMOCOCCAL VACCINE (4 - PPSV23 if available, else PCV20)] Future Scheduled 2022-09-10 INFLUENZA VACCINE [facility] Test 15:06:53 [code = INFLUENZA VACCINE] Future Scheduled 2022-09-10 SHINGLES VACCINES (1 Met [facility] Test 15:06:53 of 2) [code = SHINGLES VACCINES (1 of 2)] Future Scheduled 2022-09-10 BREAST CANCER [facility] Test 15:06:53 SCREENING [code = BREAST CANCER SCREENING] Future Scheduled 2022-09-10 COLONOSCOPY SCREENING [facility] Test 15:06:53 [code = COLONOSCOPY SCREENING] Future Scheduled 2022-09-10 HEPATITIS B VACCINES [facility] Test 15:06:53 (1 of 3 - Risk 3-dose series) [code = HEPATITIS B VACCINES (1 of 3 - Risk 3-dose series)] Future Scheduled 2022-09-10 COVID-19 VACCINE (3 - [facility] Test 15:06:53 Booster for Pfizer series) [code = COVID-19 VACCINE (3 - Booster for Pfizer series)] Future Scheduled 2022-09-10 65+ [facility] Test 15:06:[facility] VACCINE (4 - PPSV23 if available, else PCV20) [code = 65+ PNEUMOCOCCAL VACCINE (4 - PPSV23 if available, else PCV20)] Future Scheduled 2022-09-10 INFLUENZA VACCINE [facility] Test 15:06:53 [code = INFLUENZA VACCINE] Future Scheduled 2022-09-10 SHINGLES VACCINES (1 Met [facility] Test 15:06:53 of 2) [code = SHINGLES VACCINES (1 of 2)] Future Scheduled 2022-09-10 BREAST CANCER [facility] Test 15:06:53 SCREENING [code = BREAST CANCER SCREENING] Future Scheduled 2022-09-10 COLONOSCOPY SCREENING [facility] Test 15:06:53 [code = COLONOSCOPY SCREENING] Future Scheduled 2022-09-10 HEPATITIS B VACCINES Met [facility] Test 15:06:53 (1 of 3 - Risk 3-dose series) [code = HEPATITIS B VACCINES (1 of 3 - Risk 3-dose series)] Future Scheduled 2022-09-10 COVID-19 VACCINE (3 - [facility] Test 15:06:53 Booster for Pfizer series) [code = COVID-19 VACCINE (3 - Booster for Pfizer series)] Future Scheduled 2022-09-10 65+ [facility] Test 15:06:53 VACCINE (4 - PPSV23 if available, else PCV20) [code = 65+ PNEUMOCOCCAL VACCINE (4 - PPSV23 if available, else PCV20)] Future Scheduled 2022-09-10 INFLUENZA VACCINE [facility] Test 15:06:53 [code = INFLUENZA VACCINE] Future Scheduled 2022-09-10 SHINGLES VACCINES (1 Met [facility] Test 15:06:53 of 2) [code = SHINGLES VACCINES (1 of 2)] Future Scheduled 2022-09-10 BREAST CANCER [facility] Test 15:06:53 SCREENING [code = BREAST CANCER SCREENING] Future Scheduled 2022-09-10 COLONOSCOPY SCREENING [facility] Test 15:06:53 [code = COLONOSCOPY SCREENING] Future Scheduled 2022-09-10 HEPATITIS B VACCINES [facility] Test 15:06:53 (1 of 3 - Risk 3-dose series) [code = HEPATITIS B VACCINES (1 of 3 - Risk 3-dose series)] Future Scheduled 2022-09-10 COVID-19 VACCINE (3 - [facility] Test 15:06:53 Booster for Pfizer series) [code = COVID-19 VACCINE (3 - Booster for Pfizer series)] Future Scheduled 2022-09-10 65+ [facility] Test 15:06:53 VACCINE (4 - PPSV23 if available, else PCV20) [code = 65+ PNEUMOCOCCAL VACCINE (4 - PPSV23 if available, else PCV20)] Future Scheduled 2022-09-10 INFLUENZA VACCINE [facility] Test 15:06:53 [code = INFLUENZA VACCINE] Future Scheduled 2022-08-26 SHINGLES VACCINES (1 Met [facility] Test 14:43:48 of 2) [code = SHINGLES VACCINES (1 of 2)] Future Scheduled 2022-08-26 BREAST CANCER [facility] Test 14:43:48 SCREENING [code = BREAST CANCER SCREENING] Future Scheduled 2022-08-26 COLONOSCOPY SCREENING [facility] Test 14:43:48 [code = COLONOSCOPY SCREENING] Future Scheduled 2022-08-26 HEPATITIS B VACCINES [facility] Test 14:43:48 (1 of 3 - Risk 3-dose series) [code = HEPATITIS B VACCINES (1 of 3 - Risk 3-dose series)] Future Scheduled 2022-08-26 COVID-19 VACCINE (3 - [facility] Test 14:43:48 Booster for Pfizer series) [code [...] 2022-08-07 SHINGLES VACCINES (1 Met [facility] Test 23:30:11 of 2) [code = SHINGLES VACCINES (1 of 2)] Future Scheduled 2022-08-07 BREAST CANCER [facility] Test 23:30:11 SCREENING [code = BREAST CANCER SCREENING] Future Scheduled 2022-08-07 COLONOSCOPY SCREENING [facility] Test 23:30:11 [code = COLONOSCOPY SCREENING] Future Scheduled 2022-08-07 HEPATITIS B VACCINES [facility] Test 23:30:11 (1 of 3 - Risk 3-dose series) [code = HEPATITIS B VACCINES (1 of 3 - Risk 3-dose series)] Future Scheduled 2022-08-07 COVID-19 VACCINE (3 - [facility] Test 23:30:11 Booster for Pfizer series) [code = COVID-19 VACCINE (3 - Booster for Pfizer series)] Future Scheduled 2022-08-07 65+ PNEUMOCOCCAL [facility] Test 23:30:11 VACCINE (4 - PPSV23 if available, else PCV20) [code = 65+ PNEUMOCOCCAL VACCINE (4 - PPSV23 if available, else PCV20)] Future Scheduled 2022-08-07 INFLUENZA VACCINE [facility] Test 23:30:11 [code = INFLUENZA VACCINE] Future Scheduled 2022-08-07 SHINGLES VACCINES (1 Met [facility] Test 23:30:11 of 2) [code = SHINGLES VACCINES (1 of 2)] Future Scheduled 2022-08-07 BREAST CANCER [facility] Test 23:30:11 SCREENING [code = BREAST CANCER SCREENING] Future Scheduled 2022-08-07 COLONOSCOPY SCREENING [facility] Test 23:30:11 [code = COLONOSCOPY SCREENING] Future Scheduled 2022-08-07 HEPATITIS B VACCINES [facility] Test 23:30:11 (1 of 3 - Risk 3-dose series) [code = HEPATITIS B VACCINES (1 of 3 - Risk 3-dose series)] Future Scheduled 2022-08-07 COVID-19 VACCINE (3 - [facility] Test 23:30:11 Booster for Pfizer [...] 2022-08-06 SHINGLES VACCINES (1 Met [facility] Test 15:48:02 of 2) [code = SHINGLES VACCINES (1 of 2)] Future Scheduled 2022-08-06 BREAST CANCER [facility] Test 15:48:02 SCREENING [code = BREAST CANCER SCREENING] Future Scheduled 2022-08-06 COLONOSCOPY SCREENING [facility] Test 15:48:02 [code = COLONOSCOPY SCREENING] Future Scheduled 2022-08-06 HEPATITIS B VACCINES [facility] Test 15:48:02 (1 of 3 - Risk 3-dose series) [code = HEPATITIS B VACCINES (1 of 3 - Risk 3-dose series)] Future Scheduled 2022-08-06 COVID-19 VACCINE (3 - [facility] Test 15:48:02 Booster for Pfizer series) [code = COVID-19 VACCINE (3 - Booster for Pfizer series)] Future Scheduled 2022-08-06 65+ [facility]AL [facility] 15:48:02 VACCINE (4 - PPSV23 if available, else PCV20) [code = 65+ PNEUMOCOCCAL VACCINE (4 - PPSV23 if available, else PCV20)] Future Scheduled 2022-08-06 INFLUENZA VACCINE [facility] Test 15:48:02 [code = INFLUENZA VACCINE] Future Scheduled 2022-06-11 SHINGLES VACCINES (1 Met [facility] Test 16:10:12 of 2) [code = SHINGLES VACCINES (1 of 2)] Future Scheduled 2022-06-11 BREAST CANCER [facility] Test 16:10:12 SCREENING [code = BREAST CANCER SCREENING] Future Scheduled 2022-06-11 COLONOSCOPY SCREENING [facility] Test 16:10:12 [code = COLONOSCOPY SCREENING] Future Scheduled 2022-06-11 HEPATITIS B VACCINES Met [facility] Test 16:10:12 (1 of 3 - Risk 3-dose series) [code = HEPATITIS B VACCINES (1 of 3 - Risk 3-dose series)] Future Scheduled 2022-06-11 COVID-19 VACCINE (3 - [facility] Test 16:10:12 Booster for Pfizer series) [...] 2022-06-11 SHINGLES VACCINES (1 Met [facility] Test 16:10:12 of 2) [code = SHINGLES VACCINES (1 of 2)] Future Scheduled 2022-06-11 BREAST CANCER [facility] Test 16:10:12 SCREENING [code = BREAST CANCER SCREENING] Future Scheduled 2022-06-11 COLONOSCOPY SCREENING [facility] Test 16:10:12 [code = COLONOSCOPY SCREENING] Future Scheduled 2022-06-11 HEPATITIS B VACCINES Met [facility] Test 16:10:12 (1 of 3 - Risk 3-dose series) [code = HEPATITIS B VACCINES (1 of 3 - Risk 3-dose series)] Future Scheduled 2022-06-11 COVID-19 VACCINE (3 - [facility] Test 16:10:12 Booster for Pfizer series) [code = COVID-19 VACCINE (3 - Booster for Pfizer series)] Future Scheduled 2022-06-11 65+ PNEUMOCOCCAL [facility] Test 16:10:12 VACCINE (4 - PPSV23 if available, else PCV20) [code = 65+ PNEUMOCOCCAL VACCINE (4 - PPSV23 if available, else PCV20)] Future Scheduled 2022-06-11 INFLUENZA VACCINE [facility] Test 16:10:12 [code = INFLUENZA VACCINE] Future Scheduled 2022-06-11 SHINGLES VACCINES (1 Met [facility] Test 16:10:12 of 2) [code = SHINGLES VACCINES (1 of 2)] Future Scheduled 2022-06-11 BREAST CANCER [facility] Test 16:10:12 SCREENING [code = BREAST CANCER SCREENING] Future Scheduled 2022-06-11 COLONOSCOPY SCREENING [facility] Test 16:10:12 [code = COLONOSCOPY SCREENING] Future Scheduled 2022-06-11 HEPATITIS B VACCINES Met [facility] Test 16:10:12 (1 of 3 - Risk 3-dose series) [code = HEPATITIS B VACCINES (1 of 3 - Risk 3-dose series)] Future Scheduled 2022-06-11 COVID-19 VACCINE (3 - [facility] Test 16:10:12 Booster for Pfizer series) [code = COVID-19 VACCINE (3 - Booster for Pfizer series)] Future Scheduled 2022-06-11 65+ [facility] Test 16:10:12 VACCINE (4 - PPSV23 if available, else PCV20) [code = 65+ PNEUMOCOCCAL VACCINE (4 - PPSV23 if available, else PCV20)] Future Scheduled 2022-06-11 INFLUENZA VACCINE [facility] Test 16:10:12 [code = INFLUENZA VACCINE] Future Scheduled 2022-06-11 SHINGLES VACCINES (1 Met [facility] Test 16:10:12 of 2) [code = SHINGLES VACCINES (1 of 2)] Future Scheduled 2022-06-11 BREAST CANCER [facility] Test 16:10:12 SCREENING [code = BREAST CANCER SCREENING] Future Scheduled 2022-06-11 COLONOSCOPY SCREENING [facility] Test 16:10:12 [code = COLONOSCOPY SCREENING] Future Scheduled 2022-06-11 HEPATITIS B VACCINES [facility] Test 16:10:12 (1 of 3 - Risk 3-dose series) [code = HEPATITIS B VACCINES (1 of 3 - Risk 3-dose series)] Future Scheduled 2022-06-11 COVID-19 VACCINE (3 - [facility] Test 16:10:12 Booster for Pfizer series) [code = COVID-19 VACCINE (3 - Booster for Pfizer series)] Future Scheduled 2022-06-11 65+ [facility] 16:10:12 VACCINE (4 - PPSV23 if available, else PCV20) [code = 65+ PNEUMOCOCCAL VACCINE (4 - PPSV23 if available, else PCV20)] Future Scheduled 2022-06-11 INFLUENZA VACCINE [facility] Test 16:10:12 [code = INFLUENZA VACCINE] Future Scheduled 2022-06-11 SHINGLES VACCINES (1 Met [facility] Test 16:10:12 of 2) [code = SHINGLES VACCINES (1 of 2)] Future Scheduled 2022-06-11 BREAST CANCER [facility] Test 16:10:12 SCREENING [code = BREAST CANCER SCREENING] Future Scheduled 2022-06-11 COLONOSCOPY SCREENING [facility] Test 16:10:12 [code = COLONOSCOPY SCREENING] Future Scheduled 2022-06-11 HEPATITIS B VACCINES Met [facility] Test 16:10:12 (1 of 3 - [...] Future Scheduled 2022-06-11 INFLUENZA VACCINE [facility] Test 16:10:12 [code = INFLUENZA VACCINE] Future Scheduled 2022-06-11 SHINGLES VACCINES (1 Met [facility] Test 16:10:12 of 2) [code = SHINGLES VACCINES (1 of 2)] Future Scheduled 2022-06-11 BREAST CANCER [facility] Test 16:10:12 SCREENING [code = BREAST CANCER SCREENING] Future Scheduled 2022-06-11 COLONOSCOPY SCREENING [facility] Test 16:10:12 [code = COLONOSCOPY SCREENING] Future Scheduled 2022-06-11 HEPATITIS B VACCINES Met [facility] Test 16:10:12 (1 of 3 - Risk 3-dose series) [code = HEPATITIS B VACCINES (1 of 3 - Risk 3-dose series)] Future Scheduled 2022-06-11 COVID-19 VACCINE (3 - [facility] Test 16:10:12 Booster for Pfizer [...] 2022-06-11 SHINGLES VACCINES (1 Met [facility] Test 16:10:12 of 2) [code = SHINGLES VACCINES (1 of 2)] Future Scheduled 2022-06-11 BREAST CANCER [facility] Test 16:10:12 SCREENING [code = BREAST CANCER SCREENING] Future Scheduled 2022-06-11 COLONOSCOPY SCREENING [facility] Test 16:10:12 [code = COLONOSCOPY SCREENING] Future Scheduled 2022-06-11 HEPATITIS B VACCINES [facility] Test 16:10:12 (1 of 3 - Risk 3-dose series) [code = HEPATITIS B VACCINES (1 of 3 - Risk 3-dose series)] Future Scheduled 2022-06-11 COVID-19 VACCINE (3 - [facility] Test 16:10:12 Booster for Pfizer series) [code = COVID-19 VACCINE (3 - Booster for Pfizer series)] Future Scheduled 2022-06-11 65+ [facility]AL [facility] 16:10:12 VACCINE (4 - PPSV23 if available, else PCV20) [code = 65+ PNEUMOCOCCAL VACCINE (4 - PPSV23 if available, else PCV20)] Future Scheduled 2022-06-11 INFLUENZA VACCINE [facility] Test 16:10:12 [code = INFLUENZA VACCINE] Future Scheduled 2022-06-11 SHINGLES VACCINES (1 Met [facility] Test 16:10:12 of 2) [code = SHINGLES VACCINES (1 of 2)] Future Scheduled 2022-06-11 BREAST CANCER [facility] Test 16:10:12 SCREENING [code = BREAST CANCER SCREENING] Future Scheduled 2022-06-11 COLONOSCOPY SCREENING [facility] Test 16:10:12 [code = COLONOSCOPY SCREENING] Future Scheduled 2022-06-11 HEPATITIS B VACCINES [facility] Test 16:10:12 (1 of 3 - Risk 3-dose series) [code = HEPATITIS B VACCINES (1 of 3 - Risk 3-dose series)] Future Scheduled 2022-06-11 COVID-19 VACCINE (3 - [facility] Test 16:10:12 Booster for Pfizer series) [code = COVID-19 VACCINE (3 - Booster for Pfizer series)] Future Scheduled 2022-06-11 65+ [facility]AL [facility] 16:10:12 VACCINE (4 - PPSV23 if available, else PCV20) [code = 65+ PNEUMOCOCCAL VACCINE (4 - PPSV23 if available, else PCV20)] Future Scheduled 2022-06-11 INFLUENZA VACCINE [facility] Test 16:10:12 [code = INFLUENZA VACCINE] Future Scheduled 2022-06-11 SHINGLES VACCINES (1 Met [facility] Test 16:10:12 of 2) [code = SHINGLES VACCINES (1 of 2)] Future Scheduled 2022-06-11 BREAST CANCER [facility] Test 16:10:12 SCREENING [code = BREAST CANCER SCREENING] Future Scheduled 2022-06-11 COLONOSCOPY SCREENING [facility] Test 16:10:12 [code = COLONOSCOPY SCREENING] Future Scheduled 2022-06-11 HEPATITIS B VACCINES [facility] Test 16:10:12 (1 of 3 - Risk 3-dose series) [code = HEPATITIS B VACCINES (1 of 3 - Risk 3-dose series)] Future Scheduled 2022-06-11 COVID-19 VACCINE (3 - [facility] Test 16:10:12 Booster for Pfizer series) [code = COVID-19 VACCINE (3 - Booster for Pfizer series)] Future Scheduled 2022-06-11 65+ [facility]AL [facility] 16:10:12 VACCINE (4 - PPSV23 if available, else PCV20) [code = 65+ PNEUMOCOCCAL VACCINE (4 - PPSV23 if available, else PCV20)] Future Scheduled 2022-06-11 INFLUENZA VACCINE [facility] Test 16:10:12 [code = INFLUENZA VACCINE] Future Scheduled 2022-05-10 SHINGLES VACCINES (1 Met [facility] Test 10:21:35 of 2) [code = SHINGLES VACCINES (1 of 2)] Future Scheduled 2022-05-10 BREAST CANCER [facility] Test 10:21:35 SCREENING [code = BREAST CANCER SCREENING] Future Scheduled 2022-05-10 COLONOSCOPY SCREENING [facility] Test 10:21:35 [code = COLONOSCOPY SCREENING] Future Scheduled 2022-05-10 HEPATITIS B VACCINES [facility] Test 10:21:35 (1 of 3 - Risk 3-dose series) [code = HEPATITIS B VACCINES (1 of 3 - Risk 3-dose series)] Future Scheduled 2022-05-10 COVID-19 VACCINE (3 - [facility] Test 10:21:35 Booster for Pfizer series) [code = COVID-19 VACCINE (3 - Booster for Pfizer series)] Future Scheduled 2022-05-10 65+ [facility]AL [facility] 10:21:35 VACCINE (4 - PPSV23 if available, else PCV20) [code = 65+ PNEUMOCOCCAL VACCINE (4 - PPSV23 if available, else PCV20)] Future Scheduled 2022-05-10 INFLUENZA VACCINE [facility] Test 10:21:35 [code = INFLUENZA VACCINE] Future Scheduled 2022-05-10 SHINGLES VACCINES (1 Met [facility] Test 10:21:35 of 2) [code = SHINGLES VACCINES (1 of 2)] Future Scheduled 2022-05-10 BREAST CANCER [facility] Test 10:21:35 SCREENING [code = BREAST CANCER SCREENING] Future Scheduled 2022-05-10 COLONOSCOPY SCREENING [facility] Test 10:21:35 [code = COLONOSCOPY SCREENING] Future Scheduled 2022-05-10 HEPATITIS B VACCINES [facility] Test 10:21:35 (1 of 3 - [...] 2022-05-06 SHINGLES VACCINES (1 Met [facility] Test 14:03:13 of 2) [code = SHINGLES VACCINES (1 of 2)] Future Scheduled 2022-05-06 BREAST CANCER [facility] Test 14:03:13 SCREENING [code = BREAST CANCER SCREENING] Future Scheduled 2022-05-06 COLONOSCOPY SCREENING [facility] Test 14:03:13 [code = COLONOSCOPY SCREENING] Future Scheduled 2022-05-06 HEPATITIS B VACCINES [facility] Test 14:03:13 (1 of 3 - Risk 3-dose series) [code = HEPATITIS B VACCINES (1 of 3 - Risk 3-dose series)] Future Scheduled 2022-05-06 COVID-19 VACCINE (3 - [facility] Test 14:03:13 Booster for Pfizer series) [code = COVID-19 VACCINE (3 - Booster for Pfizer series)] Future Scheduled 2022-05-06 65+ [facility] 14:03:13 VACCINE (4 - PPSV23 if available, else PCV20) [code = 65+ PNEUMOCOCCAL VACCINE (4 - PPSV23 if available, else PCV20)] Future Scheduled 2022-05-06 [facility] 14:03:13 [code = INFLUENZA VACCINE] Future Scheduled 2022-04-30 SHINGLES VACCINES (1 Met [facility] Test 01:07:32 of 2) [code = SHINGLES VACCINES (1 of 2)] Future Scheduled 2022-04-30 BREAST CANCER [facility] Test 01:07:32 SCREENING [code = BREAST CANCER SCREENING] Future Scheduled 2022-04-30 COLONOSCOPY SCREENING [facility] Test 01:07:32 [code = COLONOSCOPY SCREENING] Future Scheduled 2022-04-30 HEPATITIS B VACCINES [facility] Test 01:07:32 (1 of 3 - Risk 3-dose series) [code = HEPATITIS B VACCINES (1 of 3 - Risk 3-dose series)] Future Scheduled 2022-04-30 COVID-19 VACCINE (3 - [facility] Test 01:07:32 Booster for Pfizer series) [code = COVID-19 VACCINE (3 - Booster for Pfizer series)] Future Scheduled 2022-04-30 65+ PNEUMOCOCCAL [facility] Test 01:07:32 VACCINE (4 - PPSV23 if available, else PCV20) [code = 65+ PNEUMOCOCCAL VACCINE (4 - PPSV23 if available, else PCV20)] Future Scheduled 2022-04-30 INFLUENZA VACCINE [facility] Test 01:07:32 [code = INFLUENZA VACCINE] Future Scheduled 2022-04-30 SHINGLES VACCINES (1 Met [facility] Test 01:07:32 of 2) [code = SHINGLES VACCINES (1 of 2)] Future Scheduled 2022-04-30 BREAST CANCER [facility] Test 01:07:32 SCREENING [code = BREAST CANCER SCREENING] Future Scheduled 2022-04-30 COLONOSCOPY SCREENING [facility] Test 01:07:32 [code = COLONOSCOPY SCREENING] Future Scheduled 2022-04-30 HEPATITIS B VACCINES [facility] Test 01:07:32 (1 of 3 - Risk 3-dose series) [code = HEPATITIS B VACCINES (1 of 3 - Risk 3-dose series)] Future Scheduled 2022-04-30 COVID-19 VACCINE (3 - [facility] Test 01:07:32 Booster for Pfizer series) [...] 2022-04-30 SHINGLES VACCINES (1 [facility] Test 01:07:32 of 2) [code = SHINGLES VACCINES (1 of 2)] Future Scheduled 2022-04-30 BREAST CANCER [facility] Test 01:07:32 SCREENING [code = BREAST CANCER SCREENING] Future Scheduled 2022-04-30 COLONOSCOPY SCREENING [facility] Test 01:07:32 [code = COLONOSCOPY SCREENING] Future Scheduled 2022-04-30 HEPATITIS B VACCINES [facility] Test 01:07:32 (1 of 3 - Risk 3-dose series) [code = HEPATITIS B VACCINES (1 of 3 - Risk 3-dose series)] Future Scheduled 2022-04-30 COVID-19 VACCINE (3 - [facility] Test 01:07:32 Booster for Pfizer series) [code = COVID-19 VACCINE (3 - Booster for Pfizer series)] Future Scheduled 2022-04-30 65+ [facility] 01:07:32 VACCINE (4 - PPSV23 if available, else PCV20) [code = 65+ PNEUMOCOCCAL VACCINE (4 - PPSV23 if available, else PCV20)] Future Scheduled 2022-04-30 INFLUENZA VACCINE [facility] Test 01:07:32 [code = INFLUENZA VACCINE] Future Scheduled 2022-04-25 SHINGLES VACCINES (1 Met [facility] Test 01:45:02 of 2) [code = SHINGLES VACCINES (1 of 2)] Future Scheduled 2022-04-25 BREAST CANCER [facility] Test 01:45:02 SCREENING [code = BREAST CANCER SCREENING] Future Scheduled 2022-04-25 COLONOSCOPY SCREENING [facility] Test 01:45:02 [code = COLONOSCOPY SCREENING] Future Scheduled 2022-04-25 HEPATITIS B VACCINES [facility] Test 01:45:02 (1 of 3 - Risk 3-dose series) [code = HEPATITIS B VACCINES (1 of 3 - Risk 3-dose series)] Future Scheduled 2022-04-25 COVID-19 VACCINE (3 - [facility] Test 01:45:02 Booster for Pfizer series) [...] 2022-03-25 SHINGLES VACCINES (1 [facility] Test 14:48:42 of 2) [code = SHINGLES VACCINES (1 of 2)] Future Scheduled 2022-03-25 BREAST CANCER [facility] Test 14:48:42 SCREENING [code = BREAST CANCER SCREENING] Future Scheduled 2022-03-25 COLONOSCOPY SCREENING [facility] Test 14:48:42 [code = COLONOSCOPY SCREENING] Future Scheduled 2022-03-25 HEPATITIS B VACCINES [facility] Test 14:48:42 (1 of 3 - [...] 2022-03-25 SHINGLES VACCINES (1 [facility] Test 14:48:42 of 2) [code = SHINGLES VACCINES (1 of 2)] Future Scheduled 2022-03-25 BREAST CANCER [facility] Test 14:48:42 SCREENING [code = BREAST CANCER SCREENING] Future Scheduled 2022-03-25 COLONOSCOPY SCREENING [facility] Test 14:48:42 [code = COLONOSCOPY SCREENING] Future Scheduled 2022-03-25 HEPATITIS B VACCINES [facility] Test 14:48:42 (1 of 3 - Risk 3-dose series) [code = HEPATITIS B VACCINES (1 of 3 - Risk 3-dose series)] Future Scheduled 2022-03-25 COVID-19 VACCINE (3 - [facility] Test 14:48:42 Booster for Pfizer series) [...] 2022-03-25 SHINGLES VACCINES (1 Met [facility] Test 14:48:42 of 2) [code = SHINGLES VACCINES (1 of 2)] Future Scheduled 2022-03-25 BREAST CANCER [facility] Test 14:48:42 SCREENING [code = BREAST CANCER SCREENING] Future Scheduled 2022-03-25 COLONOSCOPY SCREENING [facility] Test 14:48:42 [code = COLONOSCOPY SCREENING] Future Scheduled 2022-03-25 HEPATITIS B VACCINES Met [facility] Test 14:48:42 (1 of 3 - Risk 3-dose series) [code = HEPATITIS B VACCINES (1 of 3 - Risk 3-dose series)] Future Scheduled 2022-03-25 COVID-19 VACCINE (3 - Me [facility] Test 14:48:42 Booster for Pfizer series) [code = COVID-19 VACCINE (3 - Booster for Pfizer series)] Future Scheduled 2022-03-25 65+ [facility] Test 14:48:42 VACCINE (4 - PPSV23 if available, else PCV20) [code = 65+ PNEUMOCOCCAL VACCINE (4 - PPSV23 if available, else PCV20)] Future Scheduled 2022-03-25 INFLUENZA VACCINE [facility] Test 14:48:42 [code = INFLUENZA VACCINE] Future Scheduled 2022-03-25 SHINGLES VACCINES (1 Met [facility] Test 14:48:42 of 2) [code = SHINGLES VACCINES (1 of 2)] Future Scheduled 2022-03-25 BREAST CANCER [facility] Test 14:48:42 SCREENING [code = BREAST CANCER SCREENING] Future Scheduled 2022-03-25 COLONOSCOPY SCREENING Me [facility] Test 14:48:42 [code = COLONOSCOPY SCREENING] Future Scheduled 2022-03-25 HEPATITIS B VACCINES Met [facility] Test 14:48:42 (1 of 3 - Risk 3-dose series) [code = HEPATITIS B VACCINES (1 of 3 - Risk 3-dose series)] Future Scheduled 2022-03-25 COVID-19 VACCINE (3 - Me [facility] Test 14:48:42 Booster for Pfizer series) [...] 2022-03-25 SHINGLES VACCINES (1 Met [facility] Test 14:48:42 of 2) [code = SHINGLES VACCINES (1 of 2)] Future Scheduled 2022-03-25 BREAST CANCER [facility] Test 14:48:42 SCREENING [code = BREAST CANCER SCREENING] Future Scheduled 2022-03-25 COLONOSCOPY SCREENING [facility] Test 14:48:42 [code = COLONOSCOPY SCREENING] Future Scheduled 2022-03-25 HEPATITIS B VACCINES Met [facility] Test 14:48:42 (1 of 3 - Risk 3-dose series) [code = HEPATITIS B VACCINES (1 of 3 - Risk 3-dose series)] Future Scheduled 2022-03-25 COVID-19 VACCINE (3 - [facility] Test 14:48:42 Booster for Pfizer series) [...] 2022-03-25 SHINGLES VACCINES (1 Met [facility] Test 14:48:42 of 2) [code = SHINGLES VACCINES (1 of 2)] Future Scheduled 2022-03-25 BREAST CANCER [facility] Test 14:48:42 SCREENING [code = BREAST CANCER SCREENING] Future Scheduled 2022-03-25 COLONOSCOPY SCREENING [facility] Test 14:48:42 [code = COLONOSCOPY SCREENING] Future Scheduled 2022-03-25 HEPATITIS B VACCINES Met [facility] Test 14:48:42 (1 of 3 - Risk 3-dose series) [code = HEPATITIS B VACCINES (1 of 3 - Risk 3-dose series)] Future Scheduled 2022-03-25 COVID-19 VACCINE (3 - [facility] Test 14:48:42 Booster for Pfizer [...] 2022-03-25 SHINGLES VACCINES (1 Met [facility] Test 14:48:42 of 2) [code = SHINGLES VACCINES (1 of 2)] Future Scheduled 2022-03-25 BREAST CANCER [facility] Test 14:48:42 SCREENING [code = BREAST CANCER SCREENING] Future Scheduled 2022-03-25 COLONOSCOPY SCREENING [facility] Test 14:48:42 [code = COLONOSCOPY SCREENING] Future Scheduled 2022-03-25 HEPATITIS B VACCINES Met [facility] Test 14:48:42 (1 of 3 - Risk 3-dose series) [code = HEPATITIS B VACCINES (1 of 3 - Risk 3-dose series)] Future Scheduled 2022-03-25 COVID-19 VACCINE (3 - [facility] Test 14:48:42 Booster for Pfizer series) [code = COVID-19 VACCINE (3 - Booster for Pfizer series)] Future Scheduled 2022-03-25 65+ [facility]CCAL [facility] Test 14:48:42 VACCINE (4 - PPSV23 if available, else PCV20) [code = 65+ PNEUMOCOCCAL VACCINE (4 - PPSV23 if available, else PCV20)] Future Scheduled 2022-03-25 INFLUENZA VACCINE [facility] Test 14:48:42 [code = INFLUENZA VACCINE] Future Scheduled 2022-03-25 SHINGLES VACCINES (1 Met [facility] Test 14:48:42 of 2) [code = SHINGLES VACCINES (1 of 2)] Future Scheduled 2022-03-25 BREAST CANCER [facility] Test 14:48:42 SCREENING [code = BREAST CANCER SCREENING] Future Scheduled 2022-03-25 COLONOSCOPY SCREENING [facility] Test 14:48:42 [code = COLONOSCOPY SCREENING] Future Scheduled 2022-03-25 HEPATITIS B VACCINES Met [facility] Test 14:48:42 (1 of 3 - Risk 3-dose series) [code = HEPATITIS B VACCINES (1 of 3 - Risk 3-dose series)] Future Scheduled 2022-03-25 COVID-19 VACCINE (3 - [facility] Test 14:48:42 Booster for Pfizer series) [code = COVID-19 VACCINE (3 - Booster for Pfizer series)] Future Scheduled 2022-03-25 65+ [facility]CCAL [facility] Test 14:48:42 VACCINE (4 - PPSV23 if available, else PCV20) [code = 65+ PNEUMOCOCCAL VACCINE (4 - PPSV23 if available, else PCV20)] Future Scheduled 2022-03-25 INFLUENZA VACCINE [facility] Test 14:48:42 [code = INFLUENZA VACCINE] Future Scheduled 2022-03-25 SHINGLES VACCINES (1 Met [facility] Test 14:48:42 of 2) [code = SHINGLES VACCINES (1 of 2)] Future Scheduled 2022-03-25 BREAST CANCER [facility] Test 14:48:42 SCREENING [code = BREAST CANCER SCREENING] Future Scheduled 2022-03-25 COLONOSCOPY SCREENING [facility] Test 14:48:42 [code = COLONOSCOPY SCREENING] Future Scheduled 2022-03-25 HEPATITIS B VACCINES Met [facility] Test 14:48:42 (1 of 3 - Risk 3-dose series) [code = HEPATITIS B VACCINES (1 of 3 - Risk 3-dose series)] Future Scheduled 2022-03-25 COVID-19 VACCINE (3 - Me [facility] Test 14:48:42 Booster for Pfizer series) [code = COVID-19 VACCINE (3 - Booster for Pfizer series)] Future Scheduled 2022-03-25 65+ PNEUMOCOCCAL [facility] Test 14:48:42 VACCINE (4 - PPSV23 if available, else PCV20) [code = 65+ PNEUMOCOCCAL VACCINE (4 - PPSV23 if available, else PCV20)] Future Scheduled 2022-03-25 INFLUENZA VACCINE Method [facility] Test 14:48:42 [code = INFLUENZA VACCINE] Future Scheduled 2022-03-04 SHINGLES VACCINES (1 Met [facility] Test 14:03:57 of 2) [code = SHINGLES VACCINES (1 of 2)] Future Scheduled 2022-03-04 BREAST CANCER [facility] Test 14:03:57 SCREENING [code = BREAST CANCER SCREENING] Future Scheduled 2022-03-04 COLONOSCOPY SCREENING [facility] Test 14:03:57 [code = COLONOSCOPY SCREENING] Future Scheduled 2022-03-04 HEPATITIS B VACCINES Met [facility] Test 14:03:57 (1 of 3 - Risk 3-dose series) [code = HEPATITIS B VACCINES (1 of 3 - Risk 3-dose series)] Future Scheduled 2022-03-04 COVID-19 VACCINE (3 - [facility] Test 14:03:57 Booster for Pfizer series) [code = COVID-19 VACCINE (3 - Booster for Pfizer series)] Future Scheduled 2022-03-04 65+ PNEUMOCOCCAL [facility] Test 14:03:57 VACCINE (4 - PPSV23 if available, else PCV20) [code = 65+ PNEUMOCOCCAL VACCINE (4 - PPSV23 if available, else PCV20)] Future Scheduled 2022-03-04 INFLUENZA VACCINE Method [facility] Test 14:03:57 [code = INFLUENZA VACCINE] Future Scheduled 2022-03-04 SHINGLES VACCINES (1 Met [facility] Test 14:03:57 of 2) [code = SHINGLES VACCINES (1 of 2)] Future Scheduled 2022-03-04 BREAST CANCER [facility] Test 14:03:57 SCREENING [code = BREAST CANCER SCREENING] Future Scheduled 2022-03-04 COLONOSCOPY SCREENING [facility] Test 14:03:57 [code = COLONOSCOPY SCREENING] Future Scheduled 2022-03-04 HEPATITIS B VACCINES Met [facility] Test 14:03:57 (1 of 3 - [...] 2022-03-04 SHINGLES VACCINES (1 Met [facility] Test 14:03:57 of 2) [code = SHINGLES VACCINES (1 of 2)] Future Scheduled 2022-03-04 BREAST CANCER [facility] Test 14:03:57 SCREENING [code = BREAST CANCER SCREENING] Future Scheduled 2022-03-04 COLONOSCOPY SCREENING [facility] Test 14:03:57 [code = COLONOSCOPY SCREENING] Future Scheduled 2022-03-04 HEPATITIS B VACCINES Met [facility] Test 14:03:57 (1 of 3 - Risk 3-dose series) [code = HEPATITIS B VACCINES (1 of 3 - Risk 3-dose series)] Future Scheduled 2022-03-04 COVID-19 VACCINE (3 - [facility] Test 14:03:57 Booster for Pfizer [...] 2022-03-04 SHINGLES VACCINES (1 Met [facility] Test 14:03:57 of 2) [code = SHINGLES VACCINES (1 of 2)] Future Scheduled 2022-03-04 BREAST CANCER [facility] Test 14:03:57 SCREENING [code = BREAST CANCER SCREENING] Future Scheduled 2022-03-04 COLONOSCOPY SCREENING [facility] Test 14:03:57 [code = COLONOSCOPY SCREENING] Future Scheduled 2022-03-04 HEPATITIS B VACCINES Met [facility] Test 14:03:57 (1 of 3 - [...] 2022-02-11 SHINGLES VACCINES (1 Met [facility] Test 13:39:12 of 2) [code = SHINGLES VACCINES (1 of 2)] Future Scheduled 2022-02-11 BREAST CANCER [facility] Test 13:39:12 SCREENING [code = BREAST CANCER SCREENING] Future Scheduled 2022-02-11 COLONOSCOPY SCREENING [facility] Test 13:39:12 [code = COLONOSCOPY SCREENING] Future Scheduled 2022-02-11 HEPATITIS B VACCINES Met [facility] Test 13:39:12 (1 of 3 - Risk 3-dose series) [code = HEPATITIS B VACCINES (1 of 3 - Risk 3-dose series)] Future Scheduled 2022-02-11 COVID-19 VACCINE (3 - [facility] Test 13:39:12 Booster for Pfizer series) [code = COVID-19 VACCINE (3 - Booster for Pfizer series)] Future Scheduled 2022-02-11 65+ [facility]AL [facility] Test 13:39:12 VACCINE (4 - PPSV23 or PCV20) [code = 65+ PNEUMOCOCCAL VACCINE (4 - PPSV23 or PCV20)] Future Scheduled 2022-02-11 INFLUENZA VACCINE [facility] Test 13:39:12 [code = INFLUENZA VACCINE] Future Scheduled 2022-01-29 SHINGLES VACCINES (1 Met [facility] Test 14:07:20 of 2) [code = SHINGLES VACCINES (1 of 2)] Future Scheduled 2022-01-29 BREAST CANCER [facility] Test 14:07:20 SCREENING [code = BREAST CANCER SCREENING] Future Scheduled 2022-01-29 COLONOSCOPY SCREENING [facility] Test 14:07:20 [code = COLONOSCOPY SCREENING] Future Scheduled 2022-01-29 HEPATITIS B VACCINES Met [facility] Test 14:07:20 (1 of 3 - Risk 3-dose series) [code = HEPATITIS B VACCINES (1 of 3 - Risk 3-dose series)] Future Scheduled 2022-01-29 COVID-19 VACCINE (3 - [facility] Test 14:07:20 Booster for Pfizer series) [code = COVID-19 VACCINE (3 - Booster for Pfizer series)] Future Scheduled 2022-01-29 65+ PNEUMOCOCCAL [facility] Test 14:07:20 VACCINE (4 - PPSV23 or PCV20) [code = 65+ PNEUMOCOCCAL VACCINE (4 - PPSV23 or PCV20)] Future Scheduled 2022-01-29 INFLUENZA VACCINE Method [facility] Test 14:07:20 [code = INFLUENZA VACCINE] Future Scheduled 2022-01-29 SHINGLES VACCINES (1 Met [facility] Test 14:07:20 of 2) [code = SHINGLES VACCINES (1 of 2)] Future Scheduled 2022-01-29 BREAST CANCER [facility] Test 14:07:20 SCREENING [code = BREAST CANCER SCREENING] Future Scheduled 2022-01-29 COLONOSCOPY SCREENING [facility] Test 14:07:20 [code = COLONOSCOPY SCREENING] Future Scheduled 2022-01-29 HEPATITIS B VACCINES Met [facility] Test 14:07:20 (1 of 3 - Risk 3-dose series) [code = HEPATITIS B VACCINES (1 of 3 - Risk 3-dose series)] Future Scheduled 2022-01-29 COVID-19 VACCINE (3 - [facility] Test 14:07:20 Booster for Pfizer series) [...] 2022-01-29 SHINGLES VACCINES (1 Met [facility] Test 14:07:20 of 2) [code = SHINGLES VACCINES (1 of 2)] Future Scheduled 2022-01-29 BREAST CANCER [facility] Test 14:07:20 SCREENING [code = BREAST CANCER SCREENING] Future Scheduled 2022-01-29 COLONOSCOPY SCREENING [facility] Test 14:07:20 [code = COLONOSCOPY SCREENING] Future Scheduled 2022-01-29 HEPATITIS B VACCINES Met [facility] Test 14:07:20 (1 of 3 - Risk 3-dose series) [code = HEPATITIS B VACCINES (1 of 3 - Risk 3-dose series)] Future Scheduled 2022-01-29 COVID-19 VACCINE (3 - [facility] Test 14:07:20 Booster for Pfizer series) [code = COVID-19 VACCINE (3 - Booster for Pfizer series)] Future Scheduled 2022-01-29 65+ PNEUMOCOCCAL [facility] Test 14:07:20 VACCINE (4 - PPSV23 or PCV20) [code = 65+ PNEUMOCOCCAL VACCINE (4 - PPSV23 or PCV20)] Future Scheduled 2022-01-29 INFLUENZA VACCINE [facility] Test 14:07:20 [code = INFLUENZA VACCINE] Future Scheduled 2022-01-29 SHINGLES VACCINES (1 Met [facility] Test 14:07:20 of 2) [code = SHINGLES VACCINES (1 of 2)] Future Scheduled 2022-01-29 BREAST CANCER [facility] Test 14:07:20 SCREENING [code = BREAST CANCER SCREENING] Future Scheduled 2022-01-29 COLONOSCOPY SCREENING [facility] Test 14:07:20 [code = COLONOSCOPY SCREENING] Future Scheduled 2022-01-29 HEPATITIS B VACCINES Met [facility] Test 14:07:20 (1 of 3 - Risk 3-dose series) [code = HEPATITIS B VACCINES (1 of 3 - Risk 3-dose series)] Future Scheduled 2022-01-29 COVID-19 VACCINE (3 - [facility] Test 14:07:20 Booster for Pfizer series) [code = COVID-19 VACCINE (3 - Booster for Pfizer series)] Future Scheduled 2022-01-29 65+ PNEUMOCOCCAL [facility] Test 14:07:20 VACCINE (4 - PPSV23 or PCV20) [code = 65+ PNEUMOCOCCAL VACCINE (4 - PPSV23 or PCV20)] Future Scheduled 2022-01-29 INFLUENZA VACCINE [facility] Test 14:07:20 [code = INFLUENZA VACCINE] Future Scheduled 2022-01-20 SHINGLES VACCINES (1 Met [facility] Test 06:12:34 of 2) [code = SHINGLES VACCINES (1 of 2)] Future Scheduled 2022-01-20 Screening for [facility] Test 06:12:34 malignant neoplasm of cervix (procedure) [code = [id number]] Future Scheduled 2022-01-20 BREAST CANCER [facility] Test 06:12:34 SCREENING [code = BREAST CANCER SCREENING] Future Scheduled 2022-01-20 COLONOSCOPY SCREENING [facility] Test 06:12:34 [code = COLONOSCOPY SCREENING] Future Scheduled 2022-01-20 HEPATITIS B VACCINES Met [facility] Test 06:12:34 (1 of 3 - Risk 3-dose series) [code = HEPATITIS B VACCINES (1 of 3 - Risk 3-dose series)] Future Scheduled 2022-01-20 COVID-19 VACCINE (3 - [facility] Test 06:12:34 Booster for Pfizer series) [code = COVID-19 VACCINE (3 - Booster for Pfizer series)] Future Scheduled 2022-01-20 65+ [facility]CCAL [facility] 06:12:34 VACCINE (4 - PPSV23 or PCV20) [code = 65+ PNEUMOCOCCAL VACCINE (4 - PPSV23 or PCV20)] Future Scheduled 2022-01-20 INFLUENZA VACCINE Method [facility] Test 06:12:34 [code = INFLUENZA VACCINE] Future Scheduled 2022-01-16 SHINGLES VACCINES (1 Met [facility] Test 12:09:25 of 2) [code = SHINGLES VACCINES (1 of 2)] Future Scheduled 2022-01-16 Screening for [facility] Test 12:09:25 malignant neoplasm of cervix (procedure) [code = [id number]] Future Scheduled 2022-01-16 BREAST CANCER [facility] Test 12:09:25 SCREENING [code = BREAST CANCER SCREENING] Future Scheduled 2022-01-16 COLONOSCOPY SCREENING [facility] Test 12:09:25 [code = COLONOSCOPY SCREENING] Future Scheduled 2022-01-16 HEPATITIS B VACCINES Met [facility] Test 12:09:25 (1 of 3 - Risk 3-dose series) [code = HEPATITIS B VACCINES (1 of 3 - Risk 3-dose series)] Future Scheduled 2022-01-16 COVID-19 VACCINE (3 - Me [facility] Test 12:09:25 Booster for Pfizer series) [code = COVID-19 VACCINE (3 - Booster for Pfizer series)] Future Scheduled 2022-01-16 65+ PNEUMOCOCCAL [facility] Test 12:09:25 VACCINE (4 - PPSV23 or PCV20) [code = 65+ PNEUMOCOCCAL VACCINE (4 - PPSV23 or PCV20)] Future Scheduled 2022-01-16 INFLUENZA VACCINE Method [facility] Test 12:09:25 [code = INFLUENZA VACCINE] Future Scheduled 2022-01-14 SHINGLES VACCINES (1 Met [facility] Test 04:11:46 of 2) [code = SHINGLES VACCINES (1 of 2)] Future Scheduled 2022-01-14 Screening for [facility] Test 04:11:46 malignant neoplasm of cervix (procedure) [code = [id number]] Future Scheduled 2022-01-14 BREAST CANCER [facility] Test 04:11:46 SCREENING [code = BREAST CANCER SCREENING] Future Scheduled 2022-01-14 COLONOSCOPY SCREENING [facility] Test 04:11:46 [code = COLONOSCOPY SCREENING] Future Scheduled 2022-01-14 HEPATITIS B VACCINES Met [facility] Test 04:11:46 (1 of 3 - Risk 3-dose series) [code = HEPATITIS B VACCINES (1 of 3 - Risk 3-dose series)] Future Scheduled 2022-01-14 COVID-19 VACCINE (3 - [facility] Test 04:11:46 Booster for Pfizer series) [code = COVID-19 VACCINE (3 - Booster for Pfizer series)] Future Scheduled 2022-01-14 65+ PNEUMOCOCCAL [facility] Test 04:11:46 VACCINE (4 - PPSV23 or PCV20) [code = 65+ PNEUMOCOCCAL VACCINE (4 - PPSV23 or PCV20)] Future Scheduled 2022-01-14 INFLUENZA VACCINE [facility] Test 04:11:46 [code = INFLUENZA VACCINE] Future Scheduled 2021-08-26 Screening for [facility] Test 13:02:23 malignant neoplasm of cervix (procedure) [code = [id number]] Future Scheduled 2021-08-26 BREAST CANCER [facility] Test 13:02:23 SCREENING [code = BREAST CANCER SCREENING] Future Scheduled 2021-08-26 COLONOSCOPY SCREENING [facility] Test 13:02:23 [code = COLONOSCOPY SCREENING] Future Scheduled 2021-08-26 Screening for [facility] Test 13:02:23 malignant neoplasm of lung (procedure) [code = [id number]] Future Scheduled 2021-08-26 SHINGLES VACCINES (#1) [facility] Test 13:02:23 [code = SHINGLES VACCINES (#1)] Future Scheduled 2021-08-26 COVID-19 VACCINE (3 - [facility] Test 13:02:23 Pfizer risk 4-dose series) [...] Facility Department ID 2022-02-18 Outpatient [facility] W [id number] [place] 14:30:[address] [place] [address] 2021-07-14 Outpatient SADIKOVIC, [facility] [id number] [place] 09:33:51 [facility] 2021-06-02 Outpatient HEMATPOUR, [facility] [id number] [place] 13:58:59 [facility] 2021-04-28 Outpatient HEMATPOUR, [facility] [id number] [place] 11:21:22 [facility] 2021-03-20 Emergency [facility] [id number] [facility]12 [facility], [facility] [id number] [place] 08:16:46 [facility] 2020-10-31 Outpatient HEMATPOUR, [facility] [id number] [place] 09:44:50 [facility] 2020-09-30 Outpatient HEMATP[facility], [facility] [id number] [place] 13:16:03 [facility] 2022-11-02 2022-11-02 Outpatient R [facility] [id number] Univers 08:30:00 08:30:00 SANTIAGO barbosa [facility] 2022-10-27 2022-10-27 [facility]phone [facility] [id number] Univers 00:00:00 00:00:00 Santiago [facility] [id number] i [place] [id number] [address] 2022-10-06 2022-10-06 Outpatient [facility] [id number] Univers 09:30:00 09:30:00 SANTIAGO charlie [facility] 2022-09-26 2022-09-26 [facility] [id number] Univers 00:00:00 00:00:00 [facility] [id number] [place] [id number] [address] 2022-09-03 2022-09-03 Outpatient [facility] [id number] Univers 11:00:00 11:00:00 SANTIAGO charlie [facility] 2022-08-24 2022-08-24 [facility] 1.2.840.4 [id number] Univers 00:00:00 00:00:00 [place] [id number] ity of 3.104.2.7 [place] .3.620455 Medica l .[place] 2022-05-20 2022-05-20 [facility] [id number] Univers 00:00:00 00:00:00 [facility] [id number] [place] [id number] [address] 2022-05-10 2022-05-10 Emergency X BYRON, [facility] ERT [id number] Univers 10:30:00 16:31:00 HOME [facility] 2022-05-10 2022-05-10 Emergency Byron, [facility] 1.2.840.114 [id number] Univers 10:30:00 16:31:00 [facility] [id number] [place] [id number] [facility] [address] [place] 2022-05-10 2022-05-10 Telephone [facility], [facility] 1.2.840.114 [id number] Univers 00:00:00 00:00:00 [facility] [id number] i [place] [id number] [address] 2022-05-08 2022-05-08 Emergency X [facility] ERT [id number] Univers 16:18:00 18:42:00 THERESA barbosa [facility] 2022-05-08 2022-05-08 [facility] 1.2.840.114 [id number] Univers 16:18:00 18:42:00 Theresa BULLOCK [id number] ity of [place] 4.2.7.2.686 [facility] [id number] [address] 2022-05-07 2022-05-07 Telephone [facility] 1.2.840.114 [id number] Univers 00:00:00 00:00:00 [facility] [id number] i [place] [id number] [address] 2022-05-06 2022-05-06 Emergency [facility] ERT [id number] Univers 14:13:00 18:19:00 ANETTE barbosa [facility] 2022-05-06 2022-05-06 Emergency [facility] [id number] Univers 14:13:00 18:19:00 Anette BULLOCK [id number] ity of [place] 4.2.7.2.686 [facility] [id number] [address] 2022-05-06 2022-05-06 Telephone [facility] 1.2.840.114 [id number] Univers 00:00:00 00:00:00 [facility] [id number] i [place] [id number] [address] 2022-04-22 2022-04-22 Emergency X GRAY [facility] ERT [id number] Univers 13:55:00 17:00:00 PAULETTE ity of [facility] 2022-04-22 2022-04-22 Emergency [facility] [id number] Univers 13:55:00 17:00:00 Paulette S [place] [id number] i ty of [place] [id number] [place] [id number] [place] 2022-04-07 2022-04-07 Outpatient R [facility] [id number] Univers 20:40:00 20:40:00 ATTENDING ity [facility] [place] 2022-04-07 2022-04-07 Telephone Devin, 1.2.840.5 [id number] Univers 00:00:00 00:00:00 Robbi R [id number] i ty of 3.104.2.7 [place] .[id number] Medica l .8 [place] 2022-03-05 2022-03-05 Rn Post Partum Santiago Cardenas 1.2.840.1 [id number] Univers 13:45:00 14:00:00 Visit [facility] 53939.1.1 ity of 3.104.2.7 [place] .3.610374 Medica l .8 [place] 2022-03-05 2022-03-05 Office RonaldJOSÉ ANTONIO [id number] Univers 13:00:00 13:30:00 [facility]1.13[facility]10 [facility] [place] [id number] [address] 2022-03-05 2022-03-05 Outpatient R [facility] [id number] Univers 13:00:00 13:00:00 SANTIAGO itcharlie [facility] [place] 2022-02-26 2022-02-26 Outpatient R [facility] [id number] Univers 08:30:00 08:30:00 SANTIAGO ity of [facility] 2022-02-26 2022-02-26 Outpatient R RONALD, [facility] [id number] Univers 08:30:00 08:30:00 SANTIAGO ity of [facility] 2022-02-17 2022-02-17 Transition Stevo, 1.2.840.9 [id number] Univers 00:00:00 00:00:00 of Care Isaias Arredondo 36381.1.1 it y of 3.104.2.7 [place] .3.509490 Medica l .[place] 2022-02-10 2022-02-16 Inpatient X FRANK [facility] FAVIO [id number] Univers 22:59:00 19:27:00 TOMY ity of [facility] 2022-02-10 2022-02-16 Hospital Reilly Means 1.2.840.1 [id number] Univers 22:59:00 19:27:00 Encounter Ofe Shields 64913.1.1 ity of [place].2.7 [place] .3.008075 Medica [place] .8 [place] 2022-02-11 2022-02-11 Telephone East, 1.2.840.8 [id number] [id number] Univers 00:00:00 00:00:00 Santiago 26412.1.1 ity of 3.104.2.7 [place] .3.502432 Medica l .8 [place] 2022-02-10 2022-02-10 Travel 1.2.840.1 1.2.265.747 9961 9827 Univers 00:00:00 00:00:00 46264.1.1 350.1.13.10 ity of 3.104.2.7 4.[place].7.3.698 [place] .3.963025 084.8 Medica l .8 [place] 2022-01-30 2022-01-30 Telephone East, 1.2.840.6 [id number] [id number] Univers 00:00:00 00:00:00 Santiago 39146.1.1 ity of 3.104.2.7 [place] .3.498040 Medica l .8 Branch 2022-01-06 2022-01-06 Orders Doctor FERMIN 1.2.840.114 [id number] Univers 00:00:00 00:00:00 Only Unassigned, JACKELINE 350.1.13.10 ity of [place] [facility] 4.2.7.2.686 Yomi as [phone] [facility] 009 Branch 2021-12-25 2021-12-25 Orders Doctor FERMIN 1.2.840.114 [id number] Univers 00:00:00 00:00:00 Only Unassigned, JACKELINE 350.1.13.10 ity of [place] [facility] 4.2.7.2.686 Yomi as [phone] [facility] 009 Branch 2021-12-12 2021-12-13 Emergency X Bill COLES [facility] ERT [id number] Univers 23:53:00 01:52:00 ity of [facility] 2021-12-12 2021-12-13 Emergency Bill Coles [facility] 1.2.840.114 [id number] Univers 23:53:00 01:52:00 Kiersten BULLOCK 350.1.13.10 i ty of [place] [id number] [facility] 084 Branch 2021-11-20 2021-11-20 Rn Post Partum [facility] UNIVERSIT 1.2.840.114 9 [id number] Univers 09:45:00 10:00:00 Visit [facility] 350.1.13.10 ity of [place] 800.8554502 [facility] 316 Branch 2021-11-20 2021-11-20 Office [facility] 1.2.361.438 8073 9084 Univers 08:30:00 09:00:00 Visit [facility] 350.1.13.[address] [facility] [place] [id number] [facility] 089 Branch 2021-11-20 2021-11-20 Outpatient R [facility] [id number] Univers 08:30:00 08:30:00 SANTIAGO ity [facility] [place] 2021-11-20 2021-11-20 Outpatient R RONALD [facility] [id number] Univers 08:30:00 08:30:00 SANTIAGO barbosa [facility] [place] 2021-11-20 2021-11-20 Outpatient R RONALD [facility] [id number] Univers 08:30:00 08:30:00 SANTIAGO charlie [facility] [place] 2021-11-20 2021-11-20 Outpatient R RONALD [facility] [id number] Univers 08:30:00 08:30:00 SANTIAGO charlie [facility] [place] 2021-10-24 2021-10-24 [facility] [id number] Univers 16:27:00 [facility]:26[facility]-10-[facility] 2021-10-24 [facility] [id number] Univers 16:27:00 22:26:00 CHARITY [facility] 2021-10-24 2021-10-24 Emergency Reilly Means [facility] 1.2.840. 114 [id number] Univers 16:27:00 22:26:00 [facility] 350.1.13.10 ity [facility] 4.2.7.2.686 [facility] [id number] [address] 2021-10-23 2021-10-24 [facility] [id number] Univers 20:22:00 02:57:00 CHARITY [facility] 2021-10-23 2021-10-24 [facility] 1.2.050.160 [id number] [id number] Univers 20:22:00 02:57:00 [facility] 350.1.13.10 ity [facility] 4.2.7.2.686 [facility] [id number] [address] 2021-09-07 2021-09-07 Outpatient R SELF, [facility] [id number] Univers 08:00:00 08:00:00 GADIEL barbosa o f [facility] 2021-09-07 2021-09-07 Outpatient R SELF, [facility] [id number] Univers 08:00:00 08:00:00 GADIEL barbosa o f [facility] 2021-08-21 2021-08-21 Outpatient R [facility] [id number] Univers 10:45:00 10:45:00 SANTIAGO barbosa [facility] [place] 2021-08-21 2021-08-21 Rn Post Partum Santiago Cardenas 1.2.840.1 [id number] Univers 10:45:00 10:45:00 Visit [facility] 45067.1.1 ity of 3.104.2.7 [place] .3.690655 Medica l .8 [place] 2021-08-21 2021-08-21 Office [facility], 1.2.840.1 [id number] [id number] Univers 08:30:00 09:00:00 Visit Santiago 09893.1.1 ity of 3.104.2.7 [place] .3.742915 Medica l .8 [place] 2021-08-21 2021-08-21 Office [facility], [facility] 1.2.219.947 5971 8516 Univers 08:30:00 09:00:00 Visit Santiago [facility] 350.1.13.10 i ty of [place] [id number] [facility] porfirio 089 [place] 2021-08-21 2021-08-21 Outpatient R [facility] [id number] Univers 08:30:00 08:30:00 SANTIAGO barbosa [facility] [place] 2021-08-21 2021-08-21 Travel 1.2.840.1 1.2.868.350 0257 3865 Univers 00:00:00 00:00:00 55759.1.1 350.1.13.10 ity of 3.104.2.7 4.2.7.3.698 [place] .3.306506 084.8 Medica l .8 [place] 2021-08-14 2021-08-14 Telephone East, 1.2.840.4 [id number] Univers 00:00:00 00:00:00 Santiago 35141.1.1 ity of 3.104.2.7 [place] .3.254606 Medica l .8 Branch 2021-08-13 2021-08-13 Telephone Ronald, 1.2.840.3 [id number] Univers 00:00:00 00:00:00 Santiago 04533.1.1 ity of 3.104.2.7 [place] .3.431916 Medica l .8 Branch 2021-08-11 2021-08-11 Outpatient [facility] [id number] Univers 08:00:00 08:00:00 [facility] 2021-08-05 2021-08-05 Inpatient RAUL Lund, HCACL OUTD [id number] [facility] 05:24:00 05:24:00 Mike 31 [facility] 2021-07-20 2021-07-20 Outpatient [facility] [id number] Univers 10:00:00 10:00:00 [facility] 2021-07-14 2021-07-14 Office Pankaj, UTP 6400 1.2.840.114 13 [id number] [place] 08:45:00 09:34:[address] 350.1.13.58 Health 9.2.7.2.686 [id number] 1 2021-07-09 2021-07-09 Telephone [facility], UTP 6400 1.2.840.114 [id number] [place] 00:00:00 00:00:[address] 350.1.13.58 Health 9.2.7.2.686 [id number] 1 2021-07-09 2021-07-09 Telephone [place], UTP 6400 1.2.840.114 [id number] DC 00:00:00 00:00:[address] 350.1.13.58 Health 9.2.7.2.686 [id number] 1 2021-07-03 2021-07-03 Outpatient [facility] [id number] Univers 08:00:00 08:00:00 [facility] 2021-06-17 2021-06-17 Inpatient EDUARDO LealCL INTE.02 [id number] [facility] 10:56:00 14:36:00 Mike Christiana [facility] 2021-06-15 2021-06-15 Outpatient R SELF, [facility] [id number] Univers 10:15:00 11:07:21 GADIEL barbosa o clark [facility] 2021-06-15 2021-06-15 Outpatient R SELF, [facility] [id number] Univers 10:15:00 10:15:00 GADIEL ity o f [facility] 2021-06-15 2021-06-15 Outpatient R SELF, [facility] [id number] Univers 10:15:00 10:15:00 GADIEL barbosa o clark [facility] 2021-06-15 2021-06-15 Orders Doctor 1.2.840.3 [id number] Univers 00:00:00 00:00:00 Only Unassigned, 08376.1.1 ity of [place] 3.104.2.7 [place] .3.079816 Medica l .8 Branch 2021-06-15 2021-06-15 Travel 1.2.840.1 1.2.592.382 8263 7719 Univers 00:00:00 00:00:00 16183.1.1 350.1.13.10 ity of 3.104.2.7 4.2.7.3.698 [place] .3.395237 084.8 Medica l .8 Branch 2021-06-11 2021-06-11 Refill East, UNIVERSIT 1.2.412.249 2751 9185 Univers 00:00:00 00:00:00 [facility] 350.1.13.10 i ty of [place] 061.7522424 [facility] 089 Branch 2021-06-11 2021-06-11 Refill East, 1.2.840.0 [id number] 185 Univers 00:00:00 00:00:00 Santiago 13073.1.1 ity of 3.104.2.7 [place] .3.485089 Medica l .8 Branch 2021-06-05 2021-06-05 Outpatient R EAST, [facility] [id number] Univers 09:00:00 09:00:00 SANTIAGO ity of [facility] 2021-06-02 2021-06-02 Telephone East, UNIVERSIT 1.2.840.114 90 [id number] Univers 00:00:00 00:00:00 Santiago Y HEALTH 350.1.13.10 i ty of [place] 538.1634533 [facility] 089 [place] 2021-06-02 2021-06-02 Telephone East, 1.2.840.7 [id number] [id number] Univers 00:00:00 00:00:00 Santiago 67487.1.1 ity of 3.104.2.7 [place] .3.946205 Medica l .8 [place] 2021-05-29 2021-05-29 Telephone East, 1.2.840.9 [id number] 902 10282 Univers 00:00:00 00:00:00 Santiago 99269.1.1 ity of 3.104.2.7 [place] .3.923868 Medica l .8 [place] 2021-05-29 2021-05-29 Telephone East, 1.2.840.5 [id number] 902 [id number] Univers 00:00:00 00:00:00 Santiago 21065.1.1 ity of 3.104.2.7 [place] .3.484260 Medica l .8 [place] 2021-05-25 2021-05-25 Outpatient R SELF, [facility] [id number] Univers 08:00:00 08:00:00 GADIEL barbosa o f [facility] 2021-04-29 2021-04-29 Outpatient R LALA, [facility] [id number] Univers 08:00:00 08:00:00 NIKOLAI barbosa of [facility] 2021-04-28 2021-04-28 Telephone [place], UTP 6400 1.2.840.114 [id number] DC 00:00:00 00:00:00 Beverly RUIZ 350.1.13.58 Health 9.2.7.2.686 [id number] 1 2021-04-28 2021-04-28 Telephone Jeredimasaleshia, 1.2.840.1 [id number] 21 [id number] Methodi 00:00:00 00:00:[address] 3.430.2.7 Hospit a .3.285829 l .8 2021-03-31 2021-03-31 Orders Carol Ann, 1.2.840.1 [id number] 21 [id number] Methodi 00:00:00 00:00:00 Only Sarai Lieberman 04325.1.1 979 s t 3.430.2.7 Hospit a .3.613422 l .8 2021-03-30 2021-03-30 [facility] [id number] Univers 08:45:00 08:45:00 GADIEL rodas [facility] 2021-03-24 2021-03-24 Telephone Jailyn, 1.2.840.7 [id number] 21 [id number] Methodi 00:00:00 00:00:[address] 3.430.2.7 Hospit a .3.249716 l .8 2021-02-13 2021-02-13 Telephone Ronald, 1.2.840.4 [id number] 876 [id number] Univers 00:00:00 00:00:00 Santiago 63812.1.1 ity of 3.104.2.7 [place] .3.673923 Medica l .8 [place] 2021-01-28 2021-01-28 [facility] [id number] Univers 08:45:00 09:37:00 NIKOLAI barbosa of [facility] 2021-01-28 2021-01-28 Travel 1.2.840.1 1.2.522.452 5329 9777 Univers 00:00:00 00:00:00 80059.1.1 350.1.13.10 ity of 3.104.2.7 4.2.7.3.698 [place] .3.320375 084.8 Medica l .8 [place] 2021-01-19 2021-01-19 Telephone Shelby Pelletier.2.840.1 [id number] 2100 [id number] Methodi 00:00:00 00:00:[address] 3.430.2.7 Hospit a .3.552819 l .8 2021-01-04 2021-01-04 Letter Shelia, 1.2.840.2 [id number] 65593 696 Univers 00:00:00 00:00:00 (Out) Dagoberto H 76331.1.1 ity of 3.104.2.7 [place] .3.874379 Medica l .8 Branch 2021-01-04 2021-01-04 Letter Shelia, 1.2.840.5 [id number] 72547 696 Univers 00:00:00 00:00:00 (Out) Dagoberto H 39996.1.1 ity of 3.104.2.7 [place] .3.223326 Medica l .8 Branch 2021-01-03 2021-01-03 Dmitry Bass, 1.2.840.3 [id number] 08913 790 Univers 00:00:00 00:00:00 (Out) Dagoberto H 98125.1.1 ity of 3.104.2.7 [place] .3.020188 Medica l .8 [place] 2021-01-03 2021-01-03 Letter Shelia, 1.2.840.6 [id number] 86816 790 Univers 00:00:00 00:00:00 (Out) Dagoberto H 84100.1.1 ity of 3.104.2.7 [place] .3.577422 Medica l .8 [place] 2021-01-02 2021-01-02 Outpatient R [facility] [id number] Univers 13:40:00 13:40:00 ity of [facility] 2021-01-02 2021-01-02 Laboratory Cuba Franks 1.2.840.4 [id number] [id number] Univers 12:14:13 12:57:34 Only Lab, Adc Fam Pob I 11400.1.1 ity of 3.104.2.7 [place] .3.932934 Medica l .8 [place] 2021-01-02 2021-01-02 Laboratory Cuba Franks 1.2.840.8 [id number] [id number] Univers 12:14:13 12:57:34 Only Lab, Star Drew I 91936.1.1 ity of 3.104.2.7 [place] .3.577956 Medica l .8 [place] 2021-01-02 2021-01-02 Travel 1.2.840.1 1.2.954.856 4400 2306 Univers 00:00:00 00:00:00 70198.1.1 350.1.13.10 ity of 3.104.2.7 4.2.7.3.698 [place] .3.692780 084.8 Medica l .8 [place] 2021-01-02 2021-01-02 Letter Doctor 1.2.840.8 [id number] 87530 948 Univers 00:00:00 00:00:00 (Out) Unassigned, 85143.1.1 ity of [place] 3.104.2.7 [place] .3.027307 Medica l .8 [place] 2021-01-02 2021-01-02 Letter Doctor 1.2.840.6 [id number] 60637 946 Univers 00:00:00 00:00:00 (Out) Unassigned, 44724.1.1 ity of [place] 3.104.2.7 [place] .3.498896 Medica l .8 [place] 2021-01-02 2021-01-02 Travel 1.2.840.1 1.2.285.825 1706 2306 Univers 00:00:00 00:00:00 60272.1.1 350.1.13.10 ity of 3.104.2.7 4.2.7.3.698 [place] .3.196873 084.8 Medica l .8 [place] 2021-01-02 2021-01-02 Letter Doctor 1.2.840.6 [id number] 82569 948 Univers 00:00:00 00:00:00 (Out) Unassigned, 14155.1.1 ity of [place] 3.104.2.7 [place] .3.888085 Medica l .8 Branch 2021-01-02 2021-01-02 Letter Doctor 1.2.840.0 [id number] 946 Univers 00:00:00 00:00:00 (Out) Unassigned, 51700.1.1 ity of [place] 3.104.2.7 [place] .3.016103 Medica l .8 [place] 2020-12-22 2020-12-22 Telephone Beltran, 1.2.840.1 [id number] 862 11526 Univers 00:00:00 00:00:00 Devina R 85194.1.1 i ty of 3.104.2.7 [place] .3.445443 Medica l .8 Branch 2020-12-22 2020-12-22 Telephone Beltran, 1.2.840.0 [id number] 862 60699 Univers 00:00:00 00:00:00 Robbi R 96961.1.1 i ty of 3.104.2.7 [place] .3.246161 Medica l .8 [place] 2020-12-12 2020-12-12 Office [facility], UTP 6400 1.2.840.114 12 [id number] DC 07:42:02 08:18:[address] [facility] [address] 350.1.13.58 Health 9.2.7.2.686 [id number] 1 2020-12-12 2020-12-12 Office Hematpour, UTP 6400 1.2.840.114 12 [id number] 07:42:02 08:18:[address] [facility] [address] 350.1.13.58 9.2.7.2.686 [id number] 1 2020-12-09 2020-12-09 [facility] 1.2.840.1 [id number] Methodi 00:00:00 00:00:00 Sarai Lieberman 69218.1.1 316 s t 3.430.2.7 Hospit a .3.974734 l .8 2020-12-08 2020-12-08 [facility], 1.2.840.1 [id number] 2100 [id number] Methodi 12:35:54 23:59:00 Encounter Ray 60849.1.[address] 3.430.2.7 Hospit a .3.834835 l .8 2020-12-08 2020-12-08 Lab Jailyn, 1.2.840.1 [id number] 32068 53733 Methodi 17:25:00 17:30:[address] 3.430.2.7 Hospit a .3.768162 l .8 2020-12-08 2020-12-08 Office Jailyn, 1.2.840.1 [id number] 60427 44983 Methodi 10:30:00 11:39:56 Visit Ray [address]288.1.[address] 3.430.2.7 Hospit a .3.068624 l .8 2020-12-08 2020-12-08 Travel 1.2.840.1 1.2.783.716 7843 828631 Methodi 00:00:00 00:00:[address] 3.430.2.7 0.2.7.3.698 Ho spita .3.613157 084.8 l .8 2020-12-02 2020-12-02 Rn Post Partum [facility] UNIVERS 1.2.840.114 8 [id number] 10:20:06 10:36:19 Visit HEALTH 350.1.13.10 CLINICS 4.2.7.2.686 748.9728839 316 2020-12-02 2020-12-02 Rn Post Partum Santiago Cardenas 1.2.840.1 [id number] 316 [id number] Univers 10:20:06 10:36:19 Visit [facility] 64403.1.1 ity of 3.104.2.7 [place] .3.675771 Medica l .8 [place] 2020-12-02 2020-12-02 Rn Post Partum Santiago Cardenas 1.2.840.1 [id number] 316 [id number] Univers 10:20:06 10:36:19 Visit [facility] 04107.1.1 ity of 3.104.2.7 [place] .3.416457 Medica l .8 [place] 2020-12-02 2020-12-02 Office Ronald, 1.2.840.3 [id number] 10572 528 Univers 08:31:37 09:01:37 Visit Santiago 56511.1.1 ity of 3.104.2.7 [place] .3.860656 Medica l .8 [place] 2020-12-02 2020-12-02 [facility] [id number] Univers 09:00:00 09:00:00 SANTIAGO ity of [facility] 2020-11-25 2020-11-25 [facility] 1.2.840.114 [id number] 11:06:30 11:58:14 Visit Robbi Hairston [employer] CUSTODIAN 350.1.13.10 [facility] 4.2.7.2.686 MATERNAL [id number] & CHILD [address] [place] [address] 2020-11-25 2020-11-25 Office Beltran, 1.2.840.7 [id number] 865 Univers 11:06:30 11:58:14 Visit Eligiomeredith Hairston 50330.1.1 i ty of 3.104.2.7 [place] .3.286447 Medica l .8 [place] 2020-11-25 2020-11-25 Office Devin, 1.2.840.1 [id number] 865 Univers 11:06:30 11:58:14 Visit Eligiomeredith Hairston 22738.1.1 i ty of 3.104.2.7 [place] .3.893737 Medica l .8 [place] 2020-11-25 2020-11-25 Outpatient R [facility] [id number] Univers 11:00:00 11:00:00 ity of [facility] 2020-11-25 2020-11-25 Refill FRANCO CardenasIT 1.2.227.056 3577 4592 00:00:00 00:00:[address] [facility] [address] [facility] 4.2.7.2.686 [id number] 089 2020-11-25 2020-11-25 [facility] 1.2.675.810 8628 0821 00:00:00 00:00:00 Robbi Hairston BLOOD BANK CUSTODIAN 350.1.13.10 [facility] 4.2.7.2.686 MATERNAL [id number] & CHILD [address] [place] [address] 2020-11-25 2020-11-25 Cynthia Beltran, 1.2.840.2 [id number] 855 58680 Univers 00:00:00 00:00:00 Eligionda R 98889.1.1 i ty of 3.104.2.7 [place] .3.749392 Medica l .8 [place] 2020-11-25 2020-11-25 Refill East, 1.2.840.0 [id number] 54457 592 Univers 00:00:00 00:00:00 Santiago 49349.1.1 ity of 3.104.2.7 [place] .3.171254 Medica l .8 [place] 2020-11-25 2020-11-25 Travel 1.2.840.1 1.2.360.452 1483 0247 Univers 00:00:00 00:00:00 69699.1.1 350.1.13.10 ity of 3.104.2.7 4.2.7.3.698 [place] .3.294748 084.8 Medica l .8 [place] 2020-11-25 2020-11-25 Orders Doctor 1.2.840.2 [id number] 12128 064 Univers 00:00:00 00:00:00 Only Unassigned, 92273.1.1 ity of [place] 3.104.2.7 [place] .3.259284 Medica l .8 [place] 2020-11-25 2020-11-25 Cynthia Beltran, 1.2.840.8 [id number] 855 50914 Univers 00:00:00 00:00:00 Eligionda R 57806.1.1 i ty of 3.104.2.7 [place] .3.580927 Medica l .8 [place] 2020-11-25 2020-11-25 Refill East, 1.2.840.0 [id number] 64245 592 Univers 00:00:00 00:00:00 Santiago 44660.1.1 ity of 3.104.2.7 [place] .3.725185 Medica l .8 Branch 2020-11-25 2020-11-25 Travel 1.2.840.1 1.2.176.941 1124 0247 Univers 00:00:00 00:00:00 03411.1.1 350.1.13.10 ity of 3.104.2.7 4.2.7.3.698 [place] .3.479518 084.8 Medica l .8 Branch 2020-11-25 2020-11-25 Orders Doctor 1.2.840.1 [id number] [id number] 064 Univers 00:00:00 00:00:00 Only Unassigned, 94415.1.1 ity of [place] 3.104.2.7 [place] .3.433372 Medica l .8 [place] 2020-11-14 2020-11-14 Abstract Clark, 1.2.840.1 [id number] 20838 24867 Methodi 00:00:00 00:00:[address] 3.430.2.7 Hospit a .3.701143 l .8 2020-11-14 2020-11-14 Telephone Clark, 1.2.840.1 [id number] 2100 [id number] Methodi 00:00:00 00:00:[address] 3.430.2.7 Hospit a .3.088340 l .8 2020-11-12 2020-11-12 Outpatient [facility] [id number] Univers 08:30:00 08:30:00 SANTIAGO itcharlie of [facility] 2020-11-07 2020-11-07 Telephone Agustina Ortiz 6400 1.2.840.11 4 [id number] DC 00:00:00 00:00:[address] 350.1.13.58 Health 9.2.7.2.686 [id number] 1 2020-11-07 2020-11-07 Telephone KIMBERLEY Oritz 6400 1.2.840.114 124 [id number] 00:00:00 00:00:[address] 350.1.13.58 9.2.7.2.686 510.6322035 1 2020-10-31 2020-10-31 Office Maryjaneporay UTP 6400 1.2.840.114 12 [id number] [place] 07:54:00 09:45:[address] 350.1.13.58 Health 9.2.7.2.686 [id number] 1 2020-10-30 2020-10-30 Abstract Rody Maguire UTP 6400 1.2.840.1 14 [id number] [place] 00:00:00 00:00:[address] 350.1.13.58 Health 9.2.7.2.686 [id number] 1 2020-10-29 2020-10-29 Refill [place], 1.2.840.9 [id number] 400 Univers 00:00:00 00:00:00 [place] 27077.1.1 ity of 3.104.2.7 [place] .3.624334 Medica l .8 [place] 2020-10-29 2020-10-29 Refill [place], 1.2.840.7 [id number] 400 Univers 00:00:00 00:00:00 [place] 96113.1.1 ity of 3.104.2.7 [place] .3.673368 Medica l .8 [place] 2020-10-27 2020-10-27 Telephone Jailyn, 1.2.840.3 [id number] 21 [id number] Methodi 00:00:00 00:00:[address] 3.430.2.7 Hospit a .3.268659 l .8 2020-10-24 2020-10-24 Telephone Rodas, 1.2.840.1 [id number] 2100 [id number] Methodi 00:00:00 00:00:[address] 3.430.2.7 Hospit a .3.962114 l .8 2020-10-22 2020-10-22 Outpatient R SELF, [facility] [id number] Univers 13:00:00 13:00:00 GADIEL rodas [facility] 2020-10-22 2020-10-22 Travel 1.2.840.1 1.2.883.701 9896 3839 Univers 00:00:00 00:00:00 62237.1.1 350.1.13.10 ity of 3.104.2.7 4[place].3.698 [place] .3.272511 084.8 Medica l .8 [place] 2020-10-22 2020-10-22 Travel 1.2.840.1 1.2.890.134 3910 3839 [facility] 00:00:00 00:00:00 10823.1.1 350.1.13.10 ity of 3.104.2.7 [place].3.698 [place] .3.983324 084.8 Medica l .8 [place] 2020-10-13 2020-10-13 Outpatient R SELF, [facility] [id number] Univers 08:45:00 08:45:00 GADIEL rodas [facility] 2020-10-06 2020-10-12 Telemedici Jeredimasa, 1.2.840.1 [id number] 21 [id number] Methodi 15:30:00 00:08:46 ne Ray 06440.1.[address] 3.430.2.7 Hospit a .3.557670 l .8 2020-09-30 2020-09-30 Telephone Chidimasa, 1.2.840.1 [id number] 21 [id number] Methodi 00:00:00 00:00:[address] 3.430.2.7 Hospit a .3.936291 l .8 2020-09-21 2020-09-21 Travel 1.2.840.1 1.2.709.212 4413 [id number] Methodi 00:00:00 00:00:[address] 3.430.2.7 0.2.7.3.698 Ho spita .3.918554 084.8 l .8 2020-09-06 2020-09-06 [facility] 1.2.840.1 [id number] 80614 01153 Methodi 17:42:30 23:59:[address] 3.430.2.7 Hospit a .3.707208 l .8 2020-09-06 2020-09-06 [facility], 1.2.840.1 [id number] 2100 [id number] Methodi 16:50:00 17:41:00 Encounter Ray [address]2694.1.[address] 3.430.2.7 Hospit a .3.094033 l .8 2020-09-05 2020-09-05 [facility], 1.2.840.1 [id number] 2099 [id number] Methodi 09:17:00 19:45:00 Encounter Ray [address]003.1.[address] 3.430.2.7 Hospit a .3.966502 l .8 2020-09-05 2020-09-05 Surgery [facility], 1.2.840.1 [id number] 00775 Methodi 11:30:00 13:15:[address] 3.430.2.7 Hospit a .3.568358 l .8 2020-09-05 2020-09-05 Anesthesia Remigio, 1.2.840.1 [id number] 047 [id number] Methodi 11:27:00 12:20:00 Event Saraswathi 38316.1.1 243 s t V. 3.430.2.7 Hospit a .3.653695 l .8 2020-09-05 2020-09-05 Travel 1.2.840.1 1.2.863.236 3752 [id number] Methodi 00:00:00 00:00:[address] 3.430.2.7 0.2.7.3.698 Ho spita .3.140019 084.8 l .8 2020-09-04 2020-09-04 Telephone [place], 1.2.840.1 [id number] Methodi 00:00:00 00:00:00 Sarai Lieberman 56545.1.1 762 s t 3.430.2.7 Hospit a .3.442416 l .8 2020-09-02 2020-09-02 Telephone [place], 1.2.840.0 [id number] Methodi 00:00:00 00:00:00 Sarai Lieberman 36675.1.1 344 s t 3.430.2.7 Hospit a .3.632179 l .8 2020-08-29 2020-08-30 Bedded [facility] [id number] [facility] 10:20:00 14:10:00 Outpatient r [address] 2020-08-29 2020-08-30 Outpatient [facility], [facility] [address] [facility] 05:20:00 09:10:00 BEVERLY 2020-08-06 2020-08-06 Office [place], 1.2.840.4 [id number] 416 [facility] 08:03:23 09:17:49 Visit [place] 69484.1.1 ity of 3.104.2.7 [place] .3.994921 Medica l .8 [place] 2020-08-06 2020-08-06 [facility] [id number] Univers 08:30:00 08:30:00 SANTIAGO barbosa of [facility] 2020-07-14 2020-07-14 Outpatient R SELF, [facility] [id number] Univers 09:30:00 09:30:00 GADIEL barbosa [facility] [facility] 2020-07-14 2020-07-14 Travel 1.2.840.1 1.2.286.189 [id number] Univers 00:00:00 00:00:00 32268.1.1 350.1.13.10 ity of 3.104.2.[place].3.698 [place] .3.624[place] 084.8 Medica l .8 [place] 2020-07-14 2020-07-14 Orders Doctor 1.2.840.4 [id number] Univers 00:00:00 00:00:00 Only Unassigned, 27197.1.1 ity of [place] 3.104.2.7 [place] .3.158462 Medica [place] .[facility] [place] 2020-06-16 2020-06-16 Outpatient R [facility] [id number] Univers 08:00:00 08:00:00 GADIEL barbosa o f [facility] 2020-06-06 2020-06-06 Telephone East, 1.2.840.0 [id number] Univers 00:00:00 00:00:00 Santiago 97155.1.1 ity of 3.104.2.7 [place] .3.054615 Medica l .8 [place] 2020-06-04 2020-06-04 Rn Post Partum RonaldSantiago 1.2.840.1 [id number] Univers 09:31:58 09:40:12 Visit [facility] 82362.1.1 ity of 3.104.2.7 [place] .3.353042 Medica l .8 [place] 2020-06-04 2020-06-04 Office [facility], [facility] 1.2.770.658 [id number] Univers 08:13:41 09:28:25 Visit [place] [facility] 350.1.13.10 i ty of [place] 203.5978049 [facility] porfirio 089 [place] 2020-06-04 2020-06-04 Outpatient R [facility] [id number] Univers 08:30:00 08:30:00 SANTIAGO itcharlie of [facility] 2020-06-04 2020-06-04 Orders Doctor 1.2.840.4 [id number] Univers 00:00:00 00:00:00 Only Unassigned, 50648.1.1 ity of [place] 3.104.2.7 [place] .3.222028 Medica l .8 [place] 2020-05-19 2020-05-19 Telephone East, 1.2.840.6 [id number] Univers 00:00:00 00:00:00 [place] 76274.1.1 ity of 3.104.2.7 [place] .3.729431 Medica l .8 [place] 2020-04-24 2020-04-24 Telephone East, 1.2.840.4 [id number] Univers 00:00:00 00:00:00 Santiago 82278.1.1 ity of 3.104.2.7 [place] .3.330246 Medica l .8 [place] 2020-04-14 2020-04-14 Outpatient R [facility], [facility] [id number] Univers 09:00:00 09:00:00 SANTIAGO ity of [facility] 2020-04-14 2020-04-14 Telephone East, 1.2.840.4 [id number] Univers 00:00:00 00:00:00 [place] 06933.1.1 ity of 3.104.2.7 [place] .3.825866 Medica l .8 [place] 2020-03-31 2020-03-31 Outpatient R [facility], [facility] [id number] Univers 08:30:00 08:30:00 SANTIAGO ity of [facility] 2020-03-03 2020-03-03 Outpatient R SELF, [facility] [id number] Univers 08:00:00 08:00:00 GADIEL raheemcharlie o f [facility] 2020-03-03 2020-03-03 Outpatient R SELF, [facility] [id number] Univers 08:00:00 08:00:00 GADIEL barbosa o f [facility] 2020-03-03 2020-03-03 Travel 1.2.840.1 1.2.604.170 [id number] Univers 00:00:00 00:00:00 08412.1.1 350.1.13.10 ity of 3.104.2.[place]3.698 [place] .[place].217[place] 084.8 Medica l .8 [place] 2020-02-06 2020-02-06 Telephone East, 1.2.840.3 [id number] Univers 00:00:00 00:00:00 [place] 53727.1.1 ity of 3.104.2.7 [place] .3.931524 Medica l .8 [place] 2020-01-26 2020-01-26 Emergency Caridad, 1.2.840.9 [id number] Univers 10:03:00 13:05:00 Cynise 93103.1.1 ity of 3.104.2.7 [place] .3.161168 Medica l .8 [place] 2020-01-26 2020-01-26 Travel 1.2.840.1 1.2.196.194 [id number] Univers 00:00:00 00:00:00 47877.1.1 350.1.13.10 ity of 3.104.2.[place] 4[place].3.698 [place] .3.886[place] 084.8 Medica l .8 [place] 2020-01-25 2020-01-25 Outpatient R [facility], [facility] [id number] Univers 08:30:00 08:30:00 SANTIAGO ity of [facility] 2020-01-25 2020-01-25 Telemedici East, 1.2.840.7 [id number] Univers 07:36:49 08:06:49 ne Visit [place] 80203.1.1 ity of 3.104.2.7 [place] .3.702950 Medica l .8 [place] 2020-01-16 2020-01-16 Outpatient R [facility], [facility] [id number] Univers 08:00:00 08:00:00 SANTIAGO ity of [facility] 2020-01-16 2020-01-16 Telephone East, 1.2.840.7 [id number] Univers 00:00:00 00:00:00 [place] 63760.1.1 ity of 3.104.2.7 [place] .3.970511 Medica l .[place] 2020-01-14 2020-01-14 Outpatient R SELF, [facility] [id number] Univers 08:00:00 08:00:00 GADIEL rodas [facility] 2019-12-31 2019-12-31 Outpatient R SELF, [facility] [id number] Univers 08:45:00 08:45:00 GADIEL rodas [facility] 2019-10-17 2019-10-17 Outpatient R [facility] [id number] Univers 08:30:00 08:30:00 SANTIAGO ity [facility] [place] 2019-10-12 2019-10-12 Outpatient R EAST, [facility] [id number] Univers 13:00:00 13:00:00 SANTIAGO ity [facility] [place] 2019-10-12 2019-10-12 Telemedici [place], 1.2.840.2 [id number] Univers 07:38:30 08:08:30 ne Visit [place] 16401.1.1 ity of 3.104.2.7 [place] .3.177792 Medica [place] .[place] 2019-10-08 2019-10-08 [id number] Univers 10:15:00 10:15:00 GADIEL barbosa o f [facility] 2019-10-03 2019-10-03 Case Assman, 1.2.840.8 [id number] Univers 00:00:00 00:00:00 Management Michael Corbin 32981.1.1 i ty of 3.104.2.7 [place] .3.234728 Medica [place] .[place] 2019-09-27 2019-09-27 Telephone East, 1.2.840.3 [id number] Univers 00:00:00 00:00:00 [place] 15170.1.1 ity of 3.104.2.7 [place] .3.714026 Medica l .[place] 2019-09-04 2019-09-04 Refill East, 1.2.840.0 [id number] Univers 00:00:00 00:00:00 [place] 71936.1.1 ity of 3.104.2.7 [place] .3.845640 Medica l .[place] 2019-07-24 2019-07-24 Outpatient R [facility] [id number] Univers 08:30:00 08:30:00 SANTIAGO maciely [facility] [place] 2019-07-17 2019-07-17 Outpatient R [facility] [id number] Univers 10:00:00 10:00:00 SANTIAGO ity [facility] [place] 2019-06-15 2019-06-15 Telephone Ronald, 1.2.840.5 [id number] Univers 00:00:00 00:00:00 [place] 57474.1.1 ity of 3.104.2.7 [place] .3.662629 Medica l .[place] 2019-06-13 2019-06-13 Telephone Team, [facility] 1.2.840.4 [id number] Univers 00:00:00 00:00:00 Health 56691.1.1 [place] .3.091236 Medica [place] .8 [place] 2019-05-10 2019-05-10 Refill Ronald, 1.2.840.2 [id number] Univers 00:00:00 00:00:00 [place] 77326.1.1 ity of 3.104.2.7 [place] .3.888876 Medica l .[place] 2019-05-09 2019-05-09 Refill Ronald, 1.2.840.5 [id number] Univers 00:00:00 00:00:00 [place] 11873.1.1 ity of 3.104.2.7 [place] .3.274286 Medica l .[place] 2019-04-30 2019-04-30 Outpatient R SELF, [facility] [id number] Univers 10:15:00 10:33:05 GADIEL barbosa o f [facility] 2019-04-18 2019-04-18 Rn Post Partum [place] Cardenas 1.2.840.1 [id number] Univers 10:00:39 10:44:31 Visit [facility] 78593.1.1 ity of 3.104.2.7 [place] .3.662946 Medica l .[place] 2019-04-18 2019-04-18 Outpatient R RONALD [facility] [id number] Univers 10:00:00 10:44:31 SANTIAGO ity of [facility] 2019-04-18 2019-04-18 Office Ronald, 1.2.840.9 [id number] Univers 08:27:44 09:53:27 Visit [place] 67601.1.1 ity of 3.104.2.7 [place] .3.429316 Medica l .[place] 2019-04-18 2019-04-18 Orders Doctor 1.2.840.3 [id number] Univers 00:00:00 00:00:00 Only Unassigned, 74543.1.1 ity of [place] 3.104.2.7 [place] .3.660489 Medica l .[place] 2019-04-11 2019-04-11 Refill East, 1.2.840.6 [id number] Univers 00:00:00 00:00:00 [place] 32682.1.1 ity of 3.104.2.7 [place] .3.687883 Medica l .8 [place] 2019-04-09 2019-04-09 Refill East, 1.2.840.2 [id number] Univers 00:00:00 00:00:00 [place] 42733.1.1 ity of 3.104.2.7 [place] .3.670022 Medica l .8 [place] 2019-04-03 2019-04-03 Telephone Team, [facility] 1.2.840.6 [id number] Univers 00:00:00 00:00:00 Health 27915.1.1 [place].2.[place] .3.935607 [place] .[place] 2019-03-27 2019-03-27 Telephone Self, 1.2.840.6 [id number] Univers 00:00:00 00:00:00 Gadiel 97887.1.1 ity of 3.104.2.7 [place] .3.163026 Medica l .[place] 2019-01-17 2019-01-17 Office East, 1.2.840.9 [id number] Univers 07:37:21 10:32:51 Visit [place] 18426.1.1 ity of 3.104.2.7 [place] .3.744310 Medica l .[place] 2019-01-04 2019-01-12 Office Eveline Hansen 1.2.840.7 [id number] Univers 11:19:32 11:08:05 Visit Mariela 93259.1.1 ity of 3.104.2.7 [place] .3.425264 Medica l .8 [facility] 2019-01-10 2019-01-10 Telephone Stanislav, 1.2.840.1 [id number] Univers 00:00:00 00:00:00 Eladio Inman 85199.1.1 ity of 3.104.2.7 [place] .3.935854 Medica l .8 [facility] 2018-12-18 2018-12-18 Office Geraldine, 1.2.840.1 [id number] Univers 08:48:45 09:13:43 Visit Leyda 39392.1.1 it y of 3.104.2.7 [place] .3.085694 Medica l .8 [facility] 2018-10-30 2018-10-30 Telephone East, 1.2.840.8 [id number] Univers 00:00:00 00:00:00 [place] 74931.1.1 ity of 3.104.2.7 [place] .3.071187 Medica l .8 [facility] 2018-10-23 2018-10-23 Orders Doctor 1.2.840.5 [id number] Univers 00:00:00 00:00:00 Only Unassigned, 89332.1.1 ity of [place] 3.104.2.7 [place] .3.763425 Medica l .8 [facility] 2018-10-23 2018-10-23 Nurse Selvin, 1.2.840.9 [id number] Univers 00:00:00 00:00:00 Triage Tsefanie 02755.1.1 ity of 3.104.2.7 [place] .3.573944 Medica l .8 [facility] 2018-10-23 2018-10-23 Telephone Self, 1.2.840.7 [id number] Univers 00:00:00 00:00:00 Gadiel 90736.1.1 ity of 3.104.2.7 [place] .3.225845 Medica l .8 [facility] 2018-10-20 2018-10-20 Telephone Self, 1.2.840.2 [id number] Univers 00:00:00 00:00:00 Gadiel 66790.1.1 ity of 3.104.2.7 [place] .3.483476 Medica l .8 [facility] Results Test Description Test Time Test Comments Results Result Comments Source COMP. METABOLIC PANEL (93628) 2022-05-06 22:42:55 Test Item Value Reference Range Interpretation Comme nts NA (test code = 3845151860) 137 mmol/L 135-145 K (test code = 8774287112) 3.2 mmol/L 3.5-5.0 L CL (test code = 8219590050) 100 mmol/L 98-108 CO2 TOTAL (test code = 1259940221) 23 mmol/L 23-31 AGAP (test code = 3850745918) 2-16 BUN (test code = 5533428455) 41 mg/dL 7-23 H GLUCOSE (test code = 2865499095) 98 mg/dL 70-110 CREATININE (test code = 1.55 mg/dL 0.50-1.04 H 1451418031) TOTAL BILI (test code = 0.8 mg/dL 0.1-1.8 8924814447) CALCIUM (test code = 6228759100) 8.3 mg/dL 8.6-10.6 L T PROTEIN (test code = 1593412271) 6.9 g/dL 6.3-8.2 ALBUMIN (test code = 3128913990) 3.9 g/dL 3.5-5.0 ALK PHOS (test code = 1667160621) 89 U/L 34-122 ALTv (test code = 1742-6) 101 U/L 5-35 H AST(SGOT) (test code = 9198711331) 203 U/L 13-40 H eGFR (test code = 6969714891) mL/min/1.73m2 KYLE (test code = KYLE) Association [...] tests). Lab Interpretation (test code = Abnormal 30543-3) [facility] WITH [id number] 22:33:52 Test Item Value Reference Range Interpretation Comments WBC (test code = See_Comment L [Automated 6990-2) message] The sy stem which generated this result transmitted reference range : 4.30 - 11.10 10*3/?L. The reference range was not used to interpret this result as normal/abnormal . RBC (test code = See_Comment [Automated 899-8) message] The sy stem which generated this [...] RDW-SD (test code = 46.3 fL 39.0-49.9 55427-8) RDW-CV (test code = 13.5 % 12.0-15.5 788-0) PLT (test code = See_Comment L [Automated 777-3) message] The sy stem which generated this result transmitted reference range : 166 - 358 10*3/ ?L. The reference r abbey was not used to interpret this result as normal/abnormal . MPV (test code = 9.5 fL 9.5-12.9 70560-2) NRBC/100 WBC (test See_Comment [Automat ed code = 1149382783) message] The system which generated this result transmitted reference range : 0.0 - 10.0 /100 WBCs. The refer ence range was not u sed to interpret th is result as normal/abnormal . NRBC x10^3 (test code See_Comment [Auto mated = 6800705312) message] The s ystem which generated this result transmitted reference range : 10*3/?L. The reference range was not used to interpret this result as normal/abnormal . GRAN MAT (NEUT) % 58.3 % (test code = 770-8) IMM GRAN % (test code 0.80 % = 1213448211) LYMPH % (test code = 28.1 % 736-9) MONO % (test code = 12.0 % 5905-5) EOS % (test code = 0.5 % 713-8) BASO % (test code = 0.3 % 706-2) GRAN MAT x10^3(ANC) 2.29 10*3/uL 1.88-7.09 (test code = 6266361547) IMM GRAN x10^3 (test 0.03 10*3/uL 0.00-0.06 code = 0077519333) LYMPH x10^3 (test code 1.10 10*3/uL 1.32-3.29 L = 731-0) MONO x10^3 (test code 0.47 10*3/uL 0.33-0.92 = 742-7) EOS x10^3 (test code = 0.03-0.39 L 711-2) BASO x10^3 (test code 0.01-0.07 = 704-7) Lab Interpretation Abnormal (test code = 99737-5) [facility] METABOLIC PANEL (NA, K, CL, CO2, GLUCOSE, BUN, CREATININE, CA)2022-04-22 21:43:42 Test Item Value Reference Range Interpretation Comments NA (test code = 142 mmol/L 135-145 6568838028) K (test code = 3.5 mmol/L 3.5-5.0 4733773184) CL (test code = 106 mmol/L 98-108 7075139294) CO2 TOTAL (test code = 26 mmol/L 23-31 6332291524) AGAP (test code = 2-16 0216418582) BUN (test code = 29 mg/dL 7-23 H 3944466818) GLUCOSE (test code = 84 mg/dL 70-110 0944712828) CREATININE (test code = 1.16 mg/dL 0.50-1.04 H 2432645780) CALCIUM (test code = 8.2 mg/dL 8.6-10.6 L 1853869848) eGFR (test code = mL/min/1.73m2 0614505107) KYLE (test code = KYLE) Association of [...] tests). Lab Interpretation Abnormal (test code = 57959-3) [facility] WITH [id number] 21:33:01 Test Item Value Reference Range Interpretation [...] (test code = 50.7 fL 39.0-49.9 H 08383-3) RDW-CV (test code = 14.6 % 12.0-15.5 788-0) PLT (test code = See_Comment L [Automated 777-3) message] The sy stem which generated this result transmitted reference range : 166 - 358 10*3/ ?L. The reference r abbey was not used to interpret this result as normal/abnormal . MPV (test code = 8.8 fL 9.5-12.9 L 05138-3) NRBC/100 WBC (test See_Comment [Automat ed code = 3725922703) message] The system which generated this result transmitted reference range : 0.0 - 10.0 /100 WBCs. The refer ence range was not u sed to interpret th is result as normal/abnormal . NRBC x10^3 (test code See_Comment [Auto mated = 0344408993) message] The s ystem which generated this result transmitted reference range : 10*3/?L. The reference range was not used to interpret this result as normal/abnormal . GRAN MAT (NEUT) % 70.9 % (test code = 770-8) IMM GRAN % (test code 0.50 % = 5825686841) LYMPH % (test code = 17.4 % 736-9) MONO % (test code = 9.0 % 5905-5) EOS % (test code = 1.7 % 713-8) BASO % (test code = 0.5 % 706-2) GRAN MAT x10^3(ANC) 4.60 10*3/uL 1.88-7.09 (test code = 1897948662) IMM GRAN x10^3 (test 0.03 10*3/uL 0.00-0.06 code = 3184227579) LYMPH x10^3 (test code 1.13 10*3/uL 1.32-3.29 L = 731-0) MONO x10^3 (test code 0.58 10*3/uL 0.33-0.92 = 742-7) EOS x10^3 (test code = 0.11 10*3/uL 0.03-0.39 711-2) BASO x10^3 (test code 0.03 10*3/uL 0.01-0.07 = 704-7) Lab Interpretation Abnormal (test code = 04483-4) [facility] [id number] 06:01:07 Test Item Value Reference Range Interpretation Comments Blood Culture-Aerobic No organisms No growth Previo us (test code = 60255-5) isolated prelim inary verified result was Culture [...] Culture-Anaerobic isolated preliminar y (test code = 19275-2) verifi ed result was Culture In Progress [...] CDT Lab Interpretation Normal (test code = 62097-6) [facility] CULTURE [id number] 06:01:07 Test Item Value Reference Range Interpretation Comments Blood Culture-Aerobic No organisms No growth Previo us (test code = 49145-1) isolated prelim inary verified result was Culture [...] Culture-Anaerobic isolated preliminar y (test code = 33017-2) verifi ed result was Culture In Progress [...] CDT Lab Interpretation Normal (test code = 06539-8) [facility] CULTURE [id number] 06:01:07 Test Item Value Reference Range Interpretation Comments Blood Culture-Aerobic No organisms No growth Previo us (test code = 37922-3) isolated prelim inary verified result was Culture [...] Culture-Anaerobic isolated preliminar y (test code = 76622-7) verifi ed result was Culture In Progress [...] CDT Lab Interpretation Normal (test code = 41996-2) [facility] [id number] 10:49:10 Test Item Value Reference Range Interpretation Comments NT-proBNP (test code 2660 pg/mL See_Comment H [Autom ated = 6618017247) message] The system which generated this result transmitted reference range : <=125. The reference range was not used to interpret this result as normal/abnormal . KYLE (test code = KYLE) Biotin has been reported to cause a negative bias, interpret results relative to patient's use of biotin. Lab Interpretation Abnormal (test code = 06015-5) [facility] [id number] 10:49:10 Test Item Value Reference Range Interpretation Comments NT-proBNP (test code 2660 pg/mL See_Comment H [Autom ated = 6635706766) message] The system which generated this result transmitted reference range : <=125. The reference range was not used to interpret this result as normal/abnormal . KYLE (test code = KYLE) Biotin has been reported to cause a negative bias, interpret results relative to patient's use of biotin. Lab Interpretation Abnormal (test code = 13695-1) [facility] METABOLIC PANEL (NA, K, CL, CO2, GLUCOSE, BUN, CREATININE, CA)2022-02-15 10:44:07 Test Item Value Reference Range Interpretation Comments NA (test code = 134 mmol/L 135-145 L 2110112086) K (test code = 3.2 mmol/L 3.5-5 L 0156842853) CL (test code = 98 mmol/L 98-108 6724646387) CO2 TOTAL (test code = 27 mmol/L 23-31 6583834231) AGAP (test code = 2-16 9202300607) BUN (test code = 19 mg/dL 7-23 8326648847) GLUCOSE (test code = 102 mg/dL 70-110 1669709523) CREATININE (test code = 0.95 mg/dL 0.5-1.04 4858558621) CALCIUM (test code = 8.5 mg/dL 8.6-10.6 L 5528188067) eGFR (test code = mL/min/1.73m2 7103619559) KYLE (test code = KYLE) Association of [...] tests). Lab Interpretation Abnormal (test code = 69284-7) [facility] Test Item Value Reference Range Interpretation Comments MAGNESIUM (test code = 2196175191) 1.8 mg/dL 1.7-2.4 Lab Interpretation (test code = Normal 14811-6) [facility] 10:44:07 Test Item Value Reference Range Interpretation Comments MAGNESIUM (test code = 7085423313) 1.8 mg/dL 1.7-2.4 Lab Interpretation (test code = Normal 20767-9) [facility] (NA, K, CL, CO2, GLUCOSE, BUN, CREATININE, CA)2022-02-15 10:44:07 Test Item Value Reference Range Interpretation Comments NA (test code = 134 mmol/L 135-145 L 6013387120) K (test code = 3.2 mmol/L 3.5-5.0 L 6071592772) CL (test code = 98 mmol/L 98-108 5273368108) CO2 TOTAL (test code = 27 mmol/L 23-31 2219376505) AGAP (test code = 2-16 9505756917) BUN (test code = 19 mg/dL 7-23 1965128612) GLUCOSE (test code = 102 mg/dL 70-110 5248222527) CREATININE (test code = 0.95 mg/dL 0.50-1.04 2631844485) CALCIUM (test code = 8.5 mg/dL 8.6-10.6 L 8888494627) eGFR (test code = mL/min/1.73m2 1203933717) KYLE (test code = KYLE) Association of [...] tests). Lab Interpretation Abnormal (test code = 26788-9) [facility] WITH [id number] 10:12:06 Test Item Value Reference Range Interpretation [...] RDW-SD (test code = 47.8 fL 39-49.9 39972-1) RDW-CV (test code = 15.2 % 12-15.5 788-0) PLT (test code = See_Comment L [Automated 777-3) message] The sy stem which generated this result transmitted reference range : 166 - 358 10*3/ ?L. The reference r abbey was not used to interpret this result as normal/abnormal . MPV (test code = 8.9 fL 9.5-12.9 L 19424-3) NRBC/100 WBC (test See_Comment [Automat ed code = 3284400347) message] The system which generated this result transmitted reference range : 0.0 - 10.0 /100 WBCs. The refer ence range was not u sed to interpret th is result as normal/abnormal . NRBC x10^3 (test code See_Comment [Auto mated = 3372724481) message] The s ystem which generated this result transmitted reference range : 10*3/?L. The reference range was not used to interpret this result as normal/abnormal . GRAN MAT (NEUT) % 65.9 % (test code = 770-8) IMM GRAN % (test code 0.30 % = 2571445647) LYMPH % (test code = 21.0 % 736-9) MONO % (test code = 10.1 % 5905-5) EOS % (test code = 2.4 % 713-8) BASO % (test code = 0.3 % 706-2) GRAN MAT x10^3(ANC) 2.49 10*3/uL 1.88-7.09 (test code = 9543198147) IMM GRAN x10^3 (test 0-0.06 code = 1766926942) LYMPH x10^3 (test code 0.79 10*3/uL 1.32-3.29 L = 731-0) MONO x10^3 (test code 0.38 10*3/uL 0.33-0.92 = 742-7) EOS x10^3 (test code = 0.09 10*3/uL 0.03-0.39 711-2) BASO x10^3 (test code 0.01-0.07 = 704-7) Lab Interpretation Abnormal (test code = 37420-1) [facility] WITH [id number] 10:12:06 Test Item Value Reference Range Interpretation [...] RDW-SD (test code = 47.8 fL 39.0-49.9 18867-3) RDW-CV (test code = 15.2 % 12.0-15.5 788-0) PLT (test code = See_Comment L [Automated 777-3) message] The sy stem which generated this result transmitted reference range : 166 - 358 10*3/ ?L. The reference r abbey was not used to interpret this result as normal/abnormal . MPV (test code = 8.9 fL 9.5-12.9 L 50830-2) NRBC/100 WBC (test See_Comment [Automat ed code = 8161794495) message] The system which generated this result transmitted reference range : 0.0 - 10.0 /100 WBCs. The refer ence range was not u sed to interpret th is result as normal/abnormal . NRBC x10^3 (test code See_Comment [Auto mated = [id number]) message] The s ystem which generated this result transmitted reference range : 10*3/?L. The reference range was not used to interpret this result as normal/abnormal . GRAN MAT (NEUT) % 65.9 % (test code = 770-8) IMM GRAN % (test code 0.30 % = [id number]) LYMPH % (test code = 21.0 % 736-9) MONO % (test code = 10.1 % 5905-5) EOS % (test code = 2.4 % 713-8) BASO % (test code = 0.3 % 706-2) GRAN MAT x10^3(ANC) 2.49 10*3/uL 1.88-7.09 (test code = [id number]) IMM GRAN x10^3 (test 0.00-0.06 code = [id number]) LYMPH x10^3 (test code 0.79 10*3/uL 1.32-3.29 L = 731-0) MONO x10^3 (test code 0.38 10*3/uL 0.33-0.92 = 742-7) EOS x10^3 (test code = 0.09 10*3/uL 0.03-0.39 711-2) BASO x10^3 (test code 0.01-0.07 = 704-7) Lab Interpretation Abnormal (test code = 58043-6) [facility] WITH [id number] 11:18:28 Test Item Value Reference Range Interpretation [...] RDW-SD (test code = 49.5 fL 39-49.9 32003-9) RDW-CV (test code = 15.5 % 12-15.5 788-0) PLT (test code = See_Comment L [Automated 777-3) message] The sy stem which generated this result transmitted reference range : 166 - 358 10*3/ ?L. The reference r abbey was not used to interpret this result as normal/abnormal . MPV (test code = 11.4 fL 9.5-12.9 65969-0) IPF % (test code = 8.7 % 1.3-7.7 H Platelet count [id number]) measured by fluorescence method. NRBC/100 WBC (test See_Comment [Automat ed code = [id number]) message] The system which generated this result transmitted reference range : 0.0 - 10.0 /100 WBCs. The refer ence range was not u sed to interpret th is result as normal/abnormal . NRBC x10^3 (test code See_Comment [Auto mated = [id number]) message] The s ystem which generated this result transmitted reference range : 10*3/?L. The reference range was not used to interpret this result as normal/abnormal . GRAN MAT (NEUT) % 62.0 % (test code = 770-8) IMM GRAN % (test code 0.80 % = [id number]) LYMPH % (test code = 22.2 % 736-9) MONO % (test code = 9.6 % 5905-5) EOS % (test code = 5.1 % 713-8) BASO % (test code = 0.3 % 706-2) GRAN MAT x10^3(ANC) 2.21 10*3/uL 1.88-7.09 (test code = [id number]) IMM GRAN x10^3 (test 0.03 10*3/uL 0-0.06 code = [id number]) LYMPH x10^3 (test code 0.79 10*3/uL 1.32-3.29 L = 731-0) MONO x10^3 (test code 0.34 10*3/uL 0.33-0.92 = 742-7) EOS x10^3 (test code = 0.18 10*3/uL 0.03-0.39 711-2) BASO x10^3 (test code 0.01-0.07 = 704-7) POLYCHROMASIA (test 2+ See_Comment [Automa arpit code = 66775-2) message] The system which generated this result [...] . Lab Interpretation Abnormal (test code = 28176-6) [facility] METABOLIC PANEL (NA, K, CL, CO2, GLUCOSE, BUN, CREATININE, CA)2022-02-13 10:39:07 Test Item Value Reference Range Interpretation Comments NA (test code = 136 mmol/L 135-145 6635088294) K (test code = 4.1 mmol/L 3.5-5 3486504252) CL (test code = 102 mmol/L 98-108 7082031833) CO2 TOTAL (test code = 27 mmol/L 23-31 4841188240) AGAP (test code = 2-16 6338387469) BUN (test code = 22 mg/dL 7-23 6192522867) GLUCOSE (test code = 94 mg/dL 70-110 7809147942) CREATININE (test code = 0.94 mg/dL 0.5-1.04 7342778157) CALCIUM (test code = 8.1 mg/dL 8.6-10.6 L 8683789284) eGFR (test code = mL/min/1.73m2 0792565243) KYLE (test code = KYLE) Association of [...] tests). Lab Interpretation Abnormal (test code = 06030-9) [facility]2022-02-12 01:50:10 Test Item Value Reference Range Interpretation Comments Height (test code = in 5552433526) Weight (test code = lbs 8058346454) Systolic BP (test code mmHg = 8058962119) Diastolic BP (test code mmHg = 5550685550) Heart Rate (test code = bpm 0481479940) BSA (test code = 1.85 m2 4566329922) IVS (test code = 1.22 cm 2216415798) Interventricular Septum 1.22 cm Diastolic Thickness by 2D (test code = 8870496) LVIDD (test code = 5.00 cm 0508781981) Left Ventricular End 117.9 mL Diastolic Volume by Teichholz Method (test code = 7113613) LVPWD (test code = 1.22 cm 1398257974) PW (test code = 1.22 cm 0.6-1.0 8553017028) EF(Teich) (test code = 74.60 % 1682517314) LVIDS (test code = 2.80 cm 3618447157) Left Ventricular End 29.9 mL Systolic Volume by Teichholz Method (test code = 3456276) FS (test code = 44 % 0921676599) EF - 2D (test code = 74.60 % 82373474) LVOT diameter (test 2.16 cm code = 2413758341) LVOT area (test code = 3.70 cm2 7780083072) Ao root diam (test code 3.40 cm = 5530590809) Aortic root (test code 3.4 cm = 8558901928) Ao root annulus (test 3.4 cm code = 3228981313) LA size (test code = 3.4 cm 2136152908) TR Peak Spencer (test code 330.0 cm/s = 0241839439) Triscuspid Valve mmHg Regurgitation Peak Gradient (test code = 6703120539) PV REGURGITATION PEAK mmHg GRADIENT (test code = 3819940392) PI dec slope (test code 137.20 cm/s2 = 5082241437) LAV(MOD-sp4) (test code 102.90 mL = 9113763855) MV Peak E Spencer (test 84.1 cm/s code = 2153753183) MV Peak A Spencer (test 40.1 cm/s code = 9608592444) E/A ratio (test code = ratio 9434224865) MV valve area p 1/2 3.70 cm2 method (test code = 7024658670) MV dec slope (test code 413.00 cm/s2 = 5372192097) MV P1/2t max spencer (test 83.70 cm/s code = 1697367385) MV Prop V (test code = 41.80 cm/s 6403133536) Tapse (test code = 1.83 cm 5097069828) LVOT stroke volume 96.90 cm3 (test code = 1458477812) LVOT peak spencer (test 125.5 cm/s code = 8151566776) LVOT mn grad (test code mmHg = 2959196359) AV LVOT peak gradient mmHg (test code = 8287790615) LVOT peak VTI (test 26.4 cm code = 9925362665) LV V1 mean (test code = 78.10 cm/s 1685392281) Aortic valve mean 103.7 cm/s velocity (test code = 8039634865) Ao peak spencer (test code 165.6 cm/s = 4465566552) Ao VTI (test code = 37.2 cm 3099019721) AV area by cont VTI 2.6 cm2 (test code = 6154465416) AV area peak spencer (test 2.8 cm2 code = 9691803212) Ao max PG (test code = 11.00 mm[Hg] 4534889652) AV peak gradient (test mmHg code = 8383008128) AV valve area (test 2.60 cm2 code = 4305815116) AV mean gradient (test mmHg code = 0397212798) LA Volume Index (BP) 55.2 mL/m2 (test code = 1078607918) LA volume (BP) (test 102.1 mL code = 8217189805) LAV(MOD-sp2) (test code 86.10 mL = 4844688227) A2C EF (test code = 61.20 % 2081682635) EF(sp2-el) (test code = 61.60 % 1662704764) SV(MOD-sp2) (test code 47.10 mL = 5760458261) LV Diastolic Volume 70.7 mL (BP) (test code = 3485153466) A4C EF (test code = 53.00 % 4889314652) EF(MOD-bp) (test code = 56.70 % 0144811762) EF(sp4-el) (test code = 53.90 % 0957422112) LV Systolic Volume (BP) 30.6 mL (test code = 7671649604) SV(MOD-bp) (test code = 40.10 mL 5922138800) SV(MOD-sp4) (test code 32.40 mL = 8184939006) SV(sp4-el) (test code = 33.10 mL 4199508824) EF (test code = 8492831027) Left Ventricular Stroke 40.1 mL Volume by 2-D Biplane-MOD (test code = 1489980) LV Diastolic Volume 38.2 mL/m2 Index (BP) (test code = 0637411145) LV Systolic Volume 16.5 mL/m2 Index (BP) (test code = 5216208981) Radiology Study observation (narrative) (test code = 30079-0) KYLE (test code = KYLE) ?Left?Ventricle: Left [...] normal. [facility]STEFANI [id number] 05:45:01 Test Item Value Reference Interpretation Comments Range TROPONIN I (test See_Comment [Automated code = 2340171449) message] The system which generated this result [...] biotin. Lab Interpretation Normal (test code = 73398-2) [facility]MIN[facility] PTD-KRR6827-28-22 05:41:40 Test Item Value Reference Range Interpretation Comments NT-proBNP (test code 4250 pg/mL See_Comment H [Autom ated = 8394219227) message] The system which generated this result transmitted reference range : <=125. The reference range was not used to interpret this result as normal/abnormal . KYLE (test code = KYLE) Biotin has been reported to cause a negative bias, interpret results relative to patient's use of biotin. Lab Interpretation Abnormal (test code = 51282-5) [facility] THRMPLAS [id number] 05:35:21 Test Item Value Reference Range Interpretation [...] seconds. Lab Interpretation Normal (test code = 67772-7) [facility] THRM[facility]AS [id number] 05:35:21 Test Item Value Reference Range Interpretation [...] seconds. Lab Interpretation Normal (test code = 29370-9) [facility] SouthPROTHROMBIN TIME / [id number] 05:33:21 Test Item Value Reference Range Interpretation Comments PROTIME PATIENT (test See_Comment [Auto mated message] code = 5964-2) The system Quikly generated this result transmitted ref erence range: 12.0 - 1 4.7 Seconds. The re ference range was not u sed to interpret this result as normal/abnor mal. INR (test code = 6301-6) Nor mal INR <1.1; Warfarin Therap eutic range 2.0 to 3. 0 or 2.5 to 3.5, dep ending upon the indica tions. Lab Interpretation (test Normal code = 10482-1) [facility]. METABOLIC PANEL (11058)2022-02-11 05:33:21 Test Item Value Reference Range Interpretation Comments NA (test code = 137 mmol/L 135-145 4837543449) K (test code = 4.3 mmol/L 3.5-5 9176822382) CL (test code = 103 mmol/L 98-108 3495463161) CO2 TOTAL (test code = 25 mmol/L 23-31 6593788001) AGAP (test code = 2-16 0667045601) BUN (test code = 19 mg/dL 7-23 4705875289) GLUCOSE (test code = 120 mg/dL 70-110 H 5158685469) CREATININE (test code = 1.15 mg/dL 0.5-1.04 H 6675216123) TOTAL BILI (test code = 0.9 mg/dL 0.1-1.4 8538898392) CALCIUM (test code = 8.9 mg/dL 8.6-10.6 1534148331) T PROTEIN (test code = 6.6 g/dL 6.3-8.2 5163273355) ALBUMIN (test code = 4.0 g/dL 3.5-5 3461480602) ALK PHOS (test code = 73 U/L 34-122 0261959853) ALTv (test code = 18 U/L 5-35 1742-6) AST(SGOT) (test code = 31 U/L 13-40 4481325270) eGFR (test code = mL/min/1.73m2 7534242003) KYLE (test code = KYLE) Association of [...] tests). Lab Interpretation Abnormal (test code = 24377-1) [facility]. METABOLIC PANEL (55702)2022-02-11 05:33:21 Test Item Value Reference Range Interpretation Comments NA (test code = 137 mmol/L 135-145 3415408008) K (test code = 4.3 mmol/L 3.5-5.0 6413354323) CL (test code = 103 mmol/L 98-108 3360799714) CO2 TOTAL (test code = 25 mmol/L 23-31 5630069219) AGAP (test code = 2-16 6430624469) BUN (test code = 19 mg/dL 7-23 0606807418) GLUCOSE (test code = 120 mg/dL 70-110 H 0919890996) CREATININE (test code = 1.15 mg/dL 0.50-1.04 H 0887491314) TOTAL BILI (test code = 0.9 mg/dL 0.1-1.0 5582212044) CALCIUM (test code = 8.9 mg/dL 8.6-10.6 5931223559) T PROTEIN (test code = 6.6 g/dL 6.3-8.2 5428216314) ALBUMIN (test code = 4.0 g/dL 3.5-5.0 7632714327) ALK PHOS (test code = 73 U/L 34-122 3854039983) ALTv (test code = 18 U/L 5-35 1742-6) AST(SGOT) (test code = 31 U/L 13-40 8294387556) eGFR (test code = mL/min/1.73m2 3331433538) KYLE (test code = KYLE) Association of [...] tests). Lab Interpretation Abnormal (test code = 12573-3) [facility]OM[facility] / [id number] 05:33:21 Test Item Value Reference Range Interpretation [...] tions. Lab Interpretation (test Normal code = 87090-3) [facility] WITH [id number] 05:14:37 Test Item Value Reference Range Interpretation Comments WBC (test code = See_Comment [Automated 1190-2) message] The sy stem which generated this [...] RDW-SD (test code = 47.9 fL 39-49.9 74234-7) RDW-CV (test code = 14.9 % 12-15.5 788-0) PLT (test code = See_Comment L [Automated 777-3) message] The sy stem which generated this result transmitted reference range : 166 - 358 10*3/ ?L. The reference r abbey was not used to interpret this result as normal/abnormal . MPV (test code = 9.1 fL 9.5-12.9 L 03312-5) NRBC/100 WBC (test See_Comment [Automat ed code = 5640564646) message] The system which generated this result transmitted reference range : 0.0 - 10.0 /100 WBCs. The refer ence range was not u sed to interpret th is result as normal/abnormal . NRBC x10^3 (test code See_Comment [Auto mated = 9209719092) message] The s ystem which generated this result transmitted reference range : 10*3/?L. The reference range was not used to interpret this result as normal/abnormal . GRAN MAT (NEUT) % 78.5 % (test code = 770-8) IMM GRAN % (test code 0.20 % = 7799603166) LYMPH % (test code = 11.6 % 736-9) MONO % (test code = 8.4 % 5905-5) EOS % (test code = 1.1 % 713-8) BASO % (test code = 0.2 % 706-2) GRAN MAT x10^3(ANC) 3.45 10*3/uL 1.88-7.09 (test code = 8811405253) IMM GRAN x10^3 (test 0-0.06 code = 1114244976) LYMPH x10^3 (test code 0.51 10*3/uL 1.32-3.29 L = 731-0) MONO x10^3 (test code 0.37 10*3/uL 0.33-0.92 = 742-7) EOS x10^3 (test code = 0.05 10*3/uL 0.03-0.39 711-2) BASO x10^3 (test code 0.01-0.07 = 704-7) Lab Interpretation Abnormal (test code = 71846-0) [facility] Coronavirus 2018 Yecjbfw1208-51-63 18:08:00 Test Item Value Reference Range Interpretation [...] det ection of nucleic acids f rom voxQFJI-HtP-6 v irus and diagnosis of SA RS-CoV-2 virusinfection. It is an Emergency Use Authorization ( EUA) testauthorized by the U.S. FDA. BASIC METABOLIC [id number] 09:37:00 Test Item Value Reference Range Interpretation [...] = 9.0 mg/dL 8.0-10.5 N CA) PROTHROMBIN [id number] 09:32:00 Test Item Value Reference Range Interpretation [...] (to prevent recurrent infar ct). 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 [facility] - XR CHEST 1 [id number] 00:00:00 [facility] : 1955 Sex: F FAX: Carmenza Kelly DO [phone] Wake: St: [facility] FAX: Mike Scales MD [phone] FAX: Bahman Chopra [phone] Name: MARJAN FLEMING [facility] : 1955 Age/S: 66/F [address] [place] [address] Unit #: [id number] Loc: [place] [address] Phys: Bahman Chopra MEDICAL OFFICE TECHNOLOGIST Acct: [id number] Dis Date: Status: ADM IN PHONE #: [phone] Exam Date: 06/17/2021 1320 FAX #: [phone] Reason: WATCHMAN EXAMS: CPT CODE: [id number] XR CHEST 1 V 16694 PROCEDURE INFORMATION: Exam: XR Chest Exam date [...] By: Susanna Orig Print D/T: S: 06/17/2021 (9474) PAGE 1 Signed ReportCOVID 19 Asymptomatic IH [id number] 12:29:00 Test Item Value Reference Range Interpretation [...] high or waivedcomplexit y tests. BASIC METABOLIC [id number] 11:37:00 Test Item Value Reference Range Interpretation [...] code = 9.0 mg/dL 8.0-10.5 N CA) FXVSNRIXYZ9044-04-72 11:37:00 Test Item Value Reference Range Interpretation Comments PREALBUMIN (test code = PREALB) 24.3 mg/dL 16.0-40.0 N PROTHROMBIN [id number] 11:03:00 Test Item Value Reference Range Interpretation [...] (to prevent recurrent infar ct). CBC W/AUTO BLVZ2683-58-09 10:59:00 Test Item Value Reference Range Interpretation [...] 0.0-0.1 N NRBC#) - XR CHEST 2 [id number] 00:00:[address] [facility] : 1955 Sex: F FAX: Carmenza Kelly [phone] Wake: St: PRE FAX: Mike Scales MD [phone] Name: MARJAN FLEMING [facility] : 1955 Age/S: 66/F [address] [place] [address] Unit #: [id number] Loc: [place], [place] [address]Mqfy: Mike Lund MD Acct: [id number] Dis Date: Status: PRE [facility] PHONE #: [phone] Exam Date: 06/16/2021 1120 FAX #: [phone] Reason: PREOP EXAMS: CPT CODE: [id number] XR CHEST 2 V 95247 PROCEDURE INFORMATION: Exam: XR Chest Exam date [...] Technologist: Danielle Nix RT(R) Trnscrd Date/Time/By: 06/16/2021 (5348) : By: [email or web address] Orig Print D/T: S: 06/16/2021 (2030) PAGE 1 Signed ReportGastrointestinal beofr5813-63-14 04:35:05 Test Item Value Reference Interpretation Comments [...] Rotavirus PCR (test Not Detected code = 8139269) Salmonella PCR (test Not Detected code = [...] 7124) [facility] jyvaiop2793-78-10 19:30:47 Test Item Value Reference Range Interpretation Comments Case number (test [id number] code = 6903040) Surgical pathology See link below for PDF report (test code = Lab Report 2255) Result status (test This is Supplemental code = 9271635) Report for [id number] [facility]2021-04-09 16:31:00 Test Item Value Reference Range Interpretation Comments POC Activated Clotting Time (test code 153 s = POC Activated Clotting Time) [facility]WRWD[facility] 16:31:00 Test Item Value Reference Range Interpretation Comments POC Activated Clotting Time (test code 153 s = POC Activated Clotting Time) [facility] HospitalJfektysRDYHHBDIHV4925-02-53 16:31:00 Test Item Value Reference Range Interpretation Comments POC Activated Clotting Time (test code 153 s = POC Activated Clotting Time) [facility] HospitalOgywzhqMPCWXRCUWF8334-16-23 16:31:00 Test Item Value Reference Range Interpretation Comments POC Activated Clotting Time (test code 153 s = POC Activated Clotting Time) [facility] HospitalQixgoojNKMIJZUJGN2351-86-16 16:31:00 Test Item Value Reference Range Interpretation Comments POC Activated Clotting Time (test code 153 s = POC Activated Clotting Time) [facility] HospitalKinujusAYJWXLKHBL7486-68-50 16:31:00 Test Item Value Reference Range Interpretation Comments POC Activated Clotting Time (test code 153 s = POC Activated Clotting Time) [facility] HospitalSoqzldfQSXJCFGKEB4929-40-59 16:31:00 Test Item Value Reference Range Interpretation Comments POC Activated Clotting Time (test code 153 s = POC Activated Clotting Time) [facility] HospitalOwazsgqMYGIVVEHMF6630-13-47 14:37:00 Test Item Value Reference Range Interpretation Comments POC Activated Clotting Time (test code 454 s = POC Activated Clotting Time) [facility] HospitalDfsbcvmPQDOQJALYL1510-48-19 14:37:00 Test Item Value Reference Range Interpretation Comments POC Activated Clotting Time (test code 454 s = POC Activated Clotting Time) [place] [id number] 14:37:00 Test Item Value Reference Range Interpretation Comments POC Activated Clotting Time (test code 454 s = POC Activated Clotting Time) [facility] HospitalKjilobgUIECEMZZPV3836-73-60 14:37:00 Test Item Value Reference Range Interpretation Comments POC Activated Clotting Time (test code 454 s = POC Activated Clotting Time) [facility] HospitalNfbthwfLHDJALCSPN2325-11-48 14:37:00 Test Item Value Reference Range Interpretation Comments POC Activated Clotting Time (test code 454 s = POC Activated Clotting Time) [facility] HospitalMchpscuRYTSJOECWE2894-55-86 14:37:00 Test Item Value Reference Range Interpretation Comments POC Activated Clotting Time (test code 454 s = POC Activated Clotting Time) [facility] HospitalUabyllePVHWCBVNWP3822-39-09 14:37:00 Test Item Value Reference Range Interpretation Comments POC Activated Clotting Time (test code 454 s = POC Activated Clotting Time) [facility] HospitalAwggorbZANQXSAVET5657-98-19 14:13:00 Test Item Value Reference Range Interpretation Comments POC Activated Clotting Time (test code 354 s = POC Activated Clotting Time) [facility] HospitalKcntpklTVCYFSPELT2608-33-30 14:13:00 Test Item Value Reference Range Interpretation Comments POC Activated Clotting Time (test code 354 s = POC Activated Clotting Time) [facility] HospitalXgscrlcTOUVDIMHCP7057-58-86 14:13:00 Test Item Value Reference Range Interpretation Comments POC Activated Clotting Time (test code 354 s = POC Activated Clotting Time) [facility] HospitalFhfgvdgJUPCANQHGJ7291-99-51 14:13:00 Test Item Value Reference Range Interpretation Comments POC Activated Clotting Time (test code 354 s = POC Activated Clotting Time) [facility] HospitalIeslpvuAPXRZXGMZC5722-52-85 14:13:00 Test Item Value Reference Range Interpretation Comments POC Activated Clotting Time (test code 354 s = POC Activated Clotting Time) [facility] HospitalShseainRYQMZXTUBP8279-20-05 14:13:00 Test Item Value Reference Range Interpretation Comments POC Activated Clotting Time (test code 354 s = POC Activated Clotting Time) [facility] HospitalBiyntqxVZKXFJOPWE5744-35-09 14:13:00 Test Item Value Reference Range Interpretation Comments POC Activated Clotting Time (test code 354 s = POC Activated Clotting Time) [facility] BANK ISSPEVN3910-40-16 10:37:00Negative (08/29/20 5:37 AM) [facility]CHE[facility] OZFFJ9701-65-73 10:37:81175Ghamhipc HermannCHEM PANEL 2020-08-29 10:37:0028[facility] HermannCHEM DYBBY6727-12-82 10:37:001.01[facility] HermannCHEM XORLV2423-38-66 10:37:30440Mojbugag HermannCHEM BTONT9778-32-34 10:37:003.8[facility] HermannCHEM YUPSA6027-95-50 10:37:62675Hhdggzja HermannCHEM GSQQB9582-26-42 10:37:0028[facility] HermannCHEM YXOZK5106-46-75 10:37:009.8 [facility] HermannCHEM SMOGL0058-63-21 10:37:0011.8[facility] HermannCHEM PANEL 2020-08-29 10:37:0059[facility] HermannCHEM GXSLO9715-61-71 10:37:002.9[facility] HlniudmLFEGVNQNCY8139-84-87 10:37:006.8[facility] AoplrvtSSLEPEYPSJ7220-86-55 10:37:004.47[facility] DuvsniaAJSSAUABBN4316-61-12 10:37:0010.6[facility] [place] VQBZCIIMBH9649-96-69 10:37:0034.0[facility] ZdqwxojJHZCRNLSHC1923-38-45 10:37:00 76.1[facility] EltxhpnQFYZFYQQOL9373-54-26 10:37:00 Test Item Value Reference Range Interpretation Comments MCH (test code = MCH) 23.8 pg 27.0-31.0 [facility] IsaiiclORKWYJUHCP7924-30-71 10:37:0031.3[facility] HermannHEMATOLOGY 2020-08-29 10:37:0018.2[facility] IgpazdoOUQFIFWTSX2805-95-59 10:37:71356Umezcqee IjznwvoHDRBDCLFZS3517-18-65 10:37:007.5[facility] QzamnwzKZNJTRCNQT2856-84-56 10:37:00 Test Item Value Reference Range Interpretation Comments PT (test code = PT) 12.8 s 12.0-14.7 [facility] LkqknoqOUEILSTRLB3434-51-12 10:37:00 Test Item Value Reference Range Interpretation Comments INR (test code = INR) 0.97 1 0.85-1.17 [facility] PeqvjzlMNMAEBLSYA7744-73-40 10:37:00 Test Item Value Reference Range Interpretation Comments PTT (test code = PTT) 25.0 s 22.9-35.8 [facility] XfrvvjyKKIGCYDEHZ7493-97-72 10:37:0070.5[facility] HermannHEMATOLOGY 2020-08-29 10:37:0018.8[facility] GuzpdslSDUKVHJIXS3978-17-90 10:37:009.5[facility] TaapemoKMFEGCVHGQ1378-45-94 10:37:000.9[facility] VhcaalsXTRHNCTDXC0914-76-69 10:37:000.3[facility] BptboyeVIKBMLVLBJ3672-71-79 10:37:004.8[facility] Marty CBFOIEEZFI3327-11-85 10:37:001.3[facility] InweqbrQXJTDOAOGF4987-20-04 10:37:000.6 [facility] ObduvzmYGSQUIMHDV3749-06-96 10:37:000.1[facility] HermannHEMATOLOGY 2020-08-29 10:37:001+ *ABN*(08/29/20 5:37 AM)[facility] ApokckpHLZQPWTPEJ8613-52-89 10:37:00Not Detected (08/29/20 5:37 AM)[facility] HermannBLOOD BANK RESULTS 2020-08-29 10:37:00Negative (08/29/20 5:37 AM)[facility] HermannCHEM FUONA6734-99-69 10:37:75542Frkgbnsa HermannCHEM MWAMT4572-12-30 10:37:0028[facility] HermannCHEM HRMAL1136-36-41 10:37:001.01[facility] HermannCHEM JTBTF8465-11-00 10:37:46683 [facility] HermannCHEM AKRLP9796-58-33 10:37:003.8[facility] HermannCHEM PANEL 2020-08-29 10:37:95785Arpjmbha HermannCHEM GBEEY7673-22-41 10:37:0028[facility] HermannCHEM IQYGW6791-37-84 10:37:009.8[facility] HermannCHEM AKIFH6992-31-29 10:37:0011.8[facility] HermannCHEM VPRXX6314-50-40 10:37:0059[facility] HermannCHEM GRMCB1729-40-50 10:37:002.9[facility] NszhjylXTQXGEGVFV0886-16-68 10:37:006.8 Memorial HhlrvxbFXKJZWDWPF5975-63-02 10:37:004.47[facility] HermannHEMATOLOGY 2020-08-29 10:37:0010.6[facility] ZicrlftBBWTOJBFGS7971-30-33 10:37:0034.0[facility] FmnzsvyBGENXLJLDL0923-53-80 10:37:0076.1[facility] MqzgibsSOGMHMETSH9507-03-35 10:37:00 Test Item Value Reference Range Interpretation Comments MCH (test code = MCH) 23.8 pg 27.0-31.0 Memorial GxdxxslECXLUXKVSI3594-68-09 10:37:0031.3[facility] HermannHEMATOLOGY 2020-08-29 10:37:0018.2[facility] IkmtcckVGPMNZAJVA0867-76-15 10:37:85598Ywijcpoy WfoxfkaFWQZCMDYKK8546-15-68 10:37:007.5[facility] EfkimijBXOITBVFPN6677-25-71 10:37:00 Test Item Value Reference Range Interpretation Comments PT (test code = PT) 12.8 s 12.0-14.7 Memorial TxzkcflADWZMMQNXP2291-70-93 10:37:00 Test Item Value Reference Range Interpretation Comments INR (test code = INR) 0.97 1 0.85-1.17 [facility] OcyodseBPCKQQCRAC1728-61-70 10:37:00 Test Item Value Reference Range Interpretation Comments PTT (test code = PTT) 25.0 s 22.9-35.8 [facility] VfkbsoeZDNKXWTORW3147-05-90 10:37:0070.5[facility] HermannHEMATOLOGY 2020-08-29 10:37:0018.8[facility] RwbdhmgEXBVMJDWSV3651-96-46 10:37:009.5[facility] JyifzalZBWFCJNRJV6275-34-90 10:37:000.9[facility] TwtdxstMNKUZYHNTO5577-71-43 10:37:000.3[facility] XxxaqlkFGZFCZSXMN9605-81-14 10:37:004.8[facility] [place] JYYHFUYWFI4005-61-77 10:37:001.3[facility] EzluqcyXAHNBFNFUD4678-05-52 10:37:000.6 [facility] DkcmbieJQWCBMFONL9459-27-85 10:37:000.1[facility] HermannHEMATOLOGY 2020-08-29 10:37:001+ *ABN*(08/29/20 5:37 AM)[facility] UvkmjgbLOXLTSWWRX2198-47-87 10:37:00Not Detected (08/29/20 5:37 AM)[facility]annBL[facility] RESULTS 2020-08-29 10:37:00Negative (08/29/20 5:37 AM)[facility]annCHEM RKVGC8859-11-49 10:37:64222Odalftqr HermannCHEM WITXS7380-15-13 10:37:0028[facility]annCHEM APMRB3716-71-28 10:37:001.01[facility]annCHEM XSLEC2873-66-64 10:37:91249 [facility]annCHE[facility] HTQQO2234-86-30 10:37:003.8[facility]annCHEM PANEL 2020-08-29 10:37:59965Kmakyukv HermannCHEM ASPOQ5261-33-39 10:37:0028[facility]annCHEM MCEPV7837-24-28 10:37:009.8[facility]annCHEM UJGTL5193-35-74 10:37:0011.8[facility]annCHEM XTBXF0822-28-29 10:37:0059[facility]annCHEM GZGIH6129-32-51 10:37:002.9[facility] QoqcpyiVYSRPZYGUS9984-06-28 10:37:006.8 [facility] RneulbgPMOBCZYXIR0853-51-42 10:37:004.47[facility]annHEMATOLOGY 2020-08-29 10:37:0010.6[facility] PiuqrjjCYMPYAQNMY2172-23-77 10:37:0034.0[facility] JzcvmtiKREVQQXLOD2548-56-32 10:37:0076.1[facility] QpfhqgrYREUPHSYCV5851-05-46 10:37:00 Test Item Value Reference Range Interpretation Comments MCH (test code = MCH) 23.8 pg 27.0-31.0 [facility] WdcwiyhVNHEQJCATF1664-20-38 10:37:0031.3[facility]annHEMATOLOGY 2020-08-29 10:37:0018.2[facility] DliadfqTILSXWCZXY7015-11-10 10:37:38925Jxrkoyrk LfcwsuwRILLZTQNFB1722-55-16 10:37:007.5[facility] DrgddkmTOZBVZHAEM4722-26-48 10:37:00 Test Item Value Reference Range Interpretation Comments PT (test code = PT) 12.8 s 12.0-14.7 [facility] OmcftpmUFHFGTUQWO8931-56-98 10:37:00 Test Item Value Reference Range Interpretation Comments INR (test code = INR) 0.97 1 0.85-1.17 [facility] BdlwtkwQKYDVEGHUD8067-64-67 10:37:00 Test Item Value Reference Range Interpretation Comments PTT (test code = PTT) 25.0 s 22.9-35.8 [facility] CvgvoviGOFZKKHVTU9514-37-65 10:37:0070.5[facility]annHEMATOLOGY 2020-08-29 10:37:0018.8[facility] CajozaxALGDHLSCQF6524-86-06 10:37:009.5[facility] AgljncbJIZJZSTXSP0240-81-35 10:37:000.9[facility] EmxvejuOQLYDUQTOS1072-63-12 10:37:000.3[facility] UwbhprkQVVKYVEHEP5580-36-38 10:37:004.8[facility] AWGSFEXVUH5700-28-60 10:37:001.3[facility] ZbshrqlTGQBGGWZBS4463-86-26 10:37:000.6 [facility] IsmontnRUNIDSNTLD5064-62-32 10:37:000.1[facility]annHEMATOLOGY 2020-08-29 10:37:001+ *ABN*(08/29/20 5:37 AM)[facility] ImurebhQVIORHCLIL7649-85-65 10:37:00Not Detected (08/29/20 5:37 AM)[facility]annBLOOD BANK RESULTS 2020-08-29 10:37:00Negative (08/29/20 5:37 AM)[facility] HermannCHEM GIOFU9514-06-85 10:37:47227Vhurzeup HermannCHEM OHEQK9297-25-63 10:37:0028[facility] HermannCHEM DLBFE8564-22-69 10:37:001.01[facility] HermannCHEM JYCWO7368-12-10 10:37:83888 [facility]annCHEM AESCN6762-54-99 10:37:003.8[facility] HermannCHEM PANEL 2020-08-29 10:37:44293Ilgszruq HermannCHEM QPFQM2983-77-33 10:37:0028[facility]annCHEM WVEUF8499-60-79 10:37:009.8[facility] HermannCHEM QJSXF7401-19-57 10:37:0011.8[facility] HermannCHEM AMCUM4363-92-39 10:37:0059[facility]annCHEM VXYJE2265-59-14 10:37:002.9[facility] WbqnwezHAMWBDSPQL9020-30-59 10:37:006.8 [facility] AlbblcdKJGMXZFZHQ7605-31-77 10:37:004.47[facility]annHEMATOLOGY 2020-08-29 10:37:0010.6[facility] TzcakaiRMGUPNJEDT6591-76-89 10:37:0034.0[facility] JhdimdeVEMGLZXTDX5353-71-15 10:37:0076.1[facility] OjkzqjfWRHFCORBKW9017-37-06 10:37:00 Test Item Value Reference Range Interpretation Comments MCH (test code = MCH) 23.8 pg 27.0-31.0 [facility] RjppkbfVGLHQJELKR5624-31-20 10:37:0031.3[facility] HermannHEMATOLOGY 2020-08-29 10:37:0018.2[facility] PhuqwnnYHYGQQSDBX9194-21-18 10:37:99763Yepmojod XgddqqoGEWIFAYWVE6674-21-14 10:37:007.5[facility] OkirdtpWCWXFFGWNA0352-95-59 10:37:00 Test Item Value Reference Range Interpretation Comments PT (test code = PT) 12.8 s 12.0-14.7 [facility] TqnzjdwPPSUPMZCCD5523-54-50 10:37:00 Test Item Value Reference Range Interpretation Comments INR (test code = INR) 0.97 1 0.85-1.17 [facility] RuyfvsiFGSDXPHCWG0103-03-31 10:37:00 Test Item Value Reference Range Interpretation Comments PTT (test code = PTT) 25.0 s 22.9-35.8 [facility] YwctkkbDAODTNWWJH9115-87-28 10:37:0070.5[facility] HermannHEMATOLOGY 2020-08-29 10:37:0018.8[facility] FcqravjBFYJIHCKYQ1139-05-88 10:37:009.5[facility] HrgknxwJNXUYTGXFA9496-41-10 10:37:000.9[facility] OtbnnqqOKJFSIQIBC3726-50-45 10:37:000.3[facility] SllvcktDSRUEZCNJH6678-86-61 10:37:004.8[facility] OGWKOFXXJB8941-24-80 10:37:001.3[facility] XbkuxqsNOMUZRTGZJ4964-62-09 10:37:000.6 [facility] VqldmuxUDBVQLHQHM8989-20-50 10:37:000.1[facility]annHEMATOLOGY 2020-08-29 10:37:001+ *ABN*(08/29/20 5:37 AM)[facility] WgvnluuKUTQZEWKEL7599-65-15 10:37:00Not Detected (08/29/20 5:37 AM)[facility]annBLOOD BANK RESULTS 2020-08-29 10:37:00Negative (08/29/20 5:37 AM)[facility] HermannCHEM VGYAN5137-31-63 10:37:20542Zhnsnsqw HermannCHEM TXEKP5436-56-41 10:37:0028[facility]annCHEM BMISX4714-69-74 10:37:001.01[facility] HermannCHEM BEDUC2884-90-60 10:37:43609 [facility]annCHEM MFVNT0383-79-23 10:37:003.8[facility] HermannCHEM PANEL 2020-08-29 10:37:98300Lgdsokfy HermannCHEM RPMFE6318-93-07 10:37:0028[facility] HermannCHEM FWJSM4905-38-08 10:37:009.8[facility] HermannCHEM LFXOK0039-07-88 10:37:0011.8[facility] HermannCHEM GETIW9835-36-87 10:37:0059[facility]annCHEM XKDKM0405-82-64 10:37:002.9[facility] IvneyldVLFHOMSEDP0864-20-33 10:37:006.8 [facility] ZrdokxlZZPSYMOUXZ4044-76-70 10:37:004.47[facility]annHEMATOLOGY 2020-08-29 10:37:0010.6[facility] QojoyvvIOKKDZBEGJ4843-68-95 10:37:0034.0[facility] SnborlkOJPXLJBLGG8279-46-96 10:37:0076.1[facility] TzpcqbeMXSEDHSMVG6244-98-67 10:37:00 Test Item Value Reference Range Interpretation Comments MCH (test code = MCH) 23.8 pg 27.0-31.0 [facility] SfudnnmCWYPAHGKNC6797-92-74 10:37:0031.3[facility] HermannHEMATOLOGY 2020-08-29 10:37:0018.2[facility] PaiavufKTDAWGQAOA2239-14-04 10:37:61977Lkydutdc KvydbiqSLBQAVOVHG7403-06-86 10:37:007.5[facility] JnxrdisZNVJATBSBP7854-32-82 10:37:00 Test Item Value Reference Range Interpretation Comments PT (test code = PT) 12.8 s 12.0-14.7 [facility] MxexbycZSWPKSEUJZ2278-67-61 10:37:00 Test Item Value Reference Range Interpretation Comments INR (test code = INR) 0.97 1 0.85-1.17 [facility] TzpwpxaEAOMTCITHI9388-82-80 10:37:00 Test Item Value Reference Range Interpretation Comments PTT (test code = PTT) 25.0 s 22.9-35.8 [facility] WligktoHHHGNBBOXO3779-60-93 10:37:0070.5[facility] HermannHEMATOLOGY 2020-08-29 10:37:0018.8[facility] DtbpklgSVINKBUSQV2390-71-02 10:37:009.5[facility] OpjcxqiEQHWXKHTOQ7585-60-64 10:37:000.9[facility] OarosvaCCLOPSMMXK5349-40-66 10:37:000.3[facility] XxtjybdEFVXDJTUTL5119-09-25 10:37:004.8[facility] PGJBLHDMAT7199-68-55 10:37:001.3[facility] GsywdksYWPIZJWVWS9947-90-37 10:37:000.6 [facility] LypqbcvCPCYKTNHBA0648-74-03 10:37:000.1[facility] HermannHEMATOLOGY 2020-08-29 10:37:001+ *ABN*(08/29/20 5:37 AM)[facility] ClqonndLYXVNJWGUO4590-55-05 10:37:00Not Detected (08/29/20 5:37 AM)[facility]annBLOOD BANK RESULTS 2020-08-29 10:37:00Negative (08/29/20 5:37 AM)[facility] HermannCHEM SQYOO4061-45-19 10:37:58864Qvimlnff HermannCHEM OUHHA5313-79-13 10:37:0028[facility] HermannCHEM AHAOG2446-38-04 10:37:001.01[facility] HermannCHEM JSTJU0764-26-34 10:37:99215 [facility]annCHEM EBEKJ0465-46-73 10:37:003.8[facility] HermannCHEM PANEL 2020-08-29 10:37:56943Xfibkgnm HermannCHEM GWMUA3379-62-48 10:37:0028[facility] HermannCHEM SSFGZ0255-87-16 10:37:009.8[facility] HermannCHEM ENCIA8127-57-93 10:37:0011.8[facility] HermannCHEM LQAKO8945-31-72 10:37:0059[facility]annCHEM SDBAZ7964-86-24 10:37:002.9[facility] RkgvulgUTMGZHDOIT6040-54-77 10:37:006.8 [facility] ZijanloDASSFUPFSS4970-86-02 10:37:004.47[facility]annHEMATOLOGY 2020-08-29 10:37:0010.6[facility] QqslttgBFTRUIJZWB1813-17-89 10:37:0034.0[facility] ZskkxilATHNUXUGUP4638-15-51 10:37:0076.1[facility] ZfwaoliTHSCBNYFDI7462-58-89 10:37:00 Test Item Value Reference Range Interpretation Comments MCH (test code = MCH) 23.8 pg 27.0-31.0 [facility] XbaijkmDPJFZGLGWV4622-27-83 10:37:0031.3[facility] HermannHEMATOLOGY 2020-08-29 10:37:0018.2[facility] HprojitOEJYXHOWIY9244-89-01 10:37:94980Wubvgzly LsjcmrrFCDVVGATFR8954-06-93 10:37:007.5[facility] OdrvbasXMMWZXVWBU4040-62-46 10:37:00 Test Item Value Reference Range Interpretation Comments PT (test code = PT) 12.8 s 12.0-14.7 [facility] HooegqrXVJIDDXIOP1303-30-22 10:37:00 Test Item Value Reference Range Interpretation Comments INR (test code = INR) 0.97 1 0.85-1.17 [facility] JhhimeiKWGLAHQCUE6675-74-85 10:37:00 Test Item Value Reference Range Interpretation Comments PTT (test code = PTT) 25.0 s 22.9-35.8 [facility] NakbcznOWQYKUTIYR3114-54-00 10:37:0070.5[facility] HermannHEMATOLOGY 2020-08-29 10:37:0018.8[facility] VamajptMHQRVYCTTL3154-02-93 10:37:009.5[facility] KnlvsipVZAYJPTRPB0640-62-41 10:37:000.9[facility] PzfgfsaUHQESOLIXT0902-43-75 10:37:000.3[facility] GigkddvZLETVFMJBB2291-82-10 10:37:004.8[facility] HOTJNWVBCO4707-66-21 10:37:001.3[facility] IkfhegdAQYVDCESBD2755-93-05 10:37:000.6 [facility] NmocpqcVWAWKSDZFO5450-00-53 10:37:000.1[facility] HermannHEMATOLOGY 2020-08-29 10:37:001+ *ABN*(08/29/20 5:37 AM)[facility] KknajikZSMFCMEKHL0687-91-34 10:37:00Not Detected (08/29/20 5:37 AM)[facility] HermannBLOOD BANK RESULTS 2020-08-29 10:37:00Negative (08/29/20 5:37 AM)[facility] HermannCHEM GMACW7752-91-25 10:37:87677Yxcarzjh HermannCHEM NXZZW1080-21-51 10:37:0028[facility] HermannCHEM ZLTFQ9641-02-16 10:37:001.01[facility] HermannCHEM ITNBJ3446-05-45 10:37:60188 [facility]annCHEM VUVEW9133-89-42 10:37:003.8[facility] HermannCHEM PANEL 2020-08-29 10:37:74795Fauutvpg HermannCHEM IHCBM2833-07-60 10:37:0028[facility] HermannCHEM OLUDZ0793-37-11 10:37:009.8[facility] HermannCHEM WPAZF0156-10-74 10:37:0011.8[facility] HermannCHEM DAFLP6652-51-94 10:37:0059[facility] HermannCHEM IPFMN3564-87-54 10:37:002.9[facility] MiumjkoGHGRMPMHKH0431-39-24 10:37:006.8 [facility] BkkkjhdCUSURKKKUH6174-25-96 10:37:004.47[facility]annHEMATOLOGY 2020-08-29 10:37:0010.6[facility] SicjekcLJQMBJRFNM3907-06-45 10:37:0034.0[facility] OjcenxuHNGEBKAFAB7189-17-20 10:37:0076.1[facility] LzbdfdkETBFKSPOOA8245-14-16 10:37:00 Test Item Value Reference Range Interpretation Comments MCH (test code = MCH) 23.8 pg 27.0-31.0 [facility] GgzdermBRNYHXZZAE8854-77-65 10:37:0031.3[facility] HermannHEMATOLOGY 2020-08-29 10:37:0018.2[facility] WgnlbmrGHBUGXIUPV6183-45-81 10:37:49869Sdhhwdqd UfqengpKVAFYOTHNO1604-32-90 10:37:007.5[facility] LjdiikhJYOCPSJXUO0577-90-70 10:37:00 Test Item Value Reference Range Interpretation Comments PT (test code = PT) 12.8 s 12.0-14.7 [facility] CdatpfuCBEYRBNMES9505-76-86 10:37:00 Test Item Value Reference Range Interpretation Comments INR (test code = INR) 0.97 1 0.85-1.17 [facility] FvpzdvrOTQQPNASFI5953-37-13 10:37:00 Test Item Value Reference Range Interpretation Comments PTT (test code = PTT) 25.0 s 22.9-35.8 [facility] MfgffrqKIBZXNUVDJ0886-47-64 10:37:0070.5[facility] HermannHEMATOLOGY 2020-08-29 10:37:0018.8[facility] FanrybwHYZCDCXUID7929-96-01 10:37:009.5[facility] DqpecdhIYRDZXACEC6084-15-13 10:37:000.9[facility] FkfmmwlQAFVTJOJZA1207-08-23 10:37:000.3[facility] ChbterxIFMNNRHTAY2272-06-37 10:37:004.8[facility] NXBIOOGVWC2523-19-59 10:37:001.3[facility] JhtdkkxHWPLSVARVO4968-82-40 10:37:000.6 [facility] UzaxbdzTQPXEPQLOQ7025-93-02 10:37:000.1[facility] HermannHEMATOLOGY 2020-08-29 10:37:001+ *ABN*(08/29/20 5:37 AM)[facility]LAQSGXVQW6303-76-82 10:37:00Not Detected (08/29/20 5:37 AM)[facility], TV,PCR, IN XMJKO7756-59-40 15:38:00 Test Item Value Reference Range Interpretation Comments FT (test code = CHTR) Not detected (qualifier Not Detected N value) FT (test code = Not detected (qualifier Not Detected N NGONO) value) FT (test code = TRVG) Not detected (qualifier Not Detected N value) [facility] PUGHMGFKITJ9247-02-19 10:57:00 Test Item Value Reference Range Interpretation Comments Color (test code = UCOLR) Dk. Yellow Clarity (test code = UCLAR) Hazy Glucose (test code = UGLUC) NEGATIVE NEGATIVE N Bilirubin (test code = UBILI) NEGATIVE NEGATIVE N Ketones (test code = UKET) NEGATIVE NEGATIVE N Specific Industry (test code = 1.025 1.005-1.030 A USPGR) [...] = None Seen None Seen N URCRYS) [facility] Notes Date/Time Note Provider Source 2021-08-05 14:08:00-00:00 [id number] [place] [address] PATIENT NAME: MARJAN FLEMING ADMIT DATE: 08/05/21 ACCOUNT NO: [id number] ROOM NO: AGE: 66 REPORT TYPE: eTRANSESOPHAGEAL ECHO REPORT SEX: F ADMITTING PHYSICIAN: ATTENDING PHYSICIAN:Mike Lund MD *[place] [address] Transesophageal Echocardiogram Patient: Marjan Fleming Study Date: 08/05/2021 BP: 158 / 92 Location: [facility] URN: [id number] : 1955 Age: 66 Height: / Gender: F Weight: / BMI/BSA: / *Ordering Physician: * Mike Lund *Interpreting Physician: * Ashely Mckeon MD *Fare Enforcement Officer: * Odessa Interiano Indications: POST WATCHMAN. Study [...] benzocaine spray. A transesophageal probe (SN: [id number]) was inserted by the attending system designer without difficulty. L ocation: CV PREP. Patient [...] benzocaine spray. A transeso phageal probe (SN: [id number]) was inserted by the attending cardiolog ist [...] PATIENT NAME: MARJAN FLEMING 1 2021-06-24 11:18:00-00:00 [phone] [place] [address] PATIENT NAME: MARJAN FLEMING ADMIT DATE: 06/17/21 ACCOUNT NO: [id number] ROOM NO: ADDIS AGE: 66 REPORT TYPE: eTRANSESOPHAGEAL ECHO REPORT SEX: F ADMITTING PHYSICIAN:Mike Lund MD ATTENDING PHYSICIAN:Mike Lund MD *[place] [address] Transesophageal Echocardiogram for Watchman Patient: Marjan Fleming Study Date: 06/17/2021 BP: Location: [facility] URN: [id number] 2647 : 1955 Age: 66 Height: / [...] the anesthesiologist. Images were obtained using a Feedback cardiac ultrasound machine. Location: Catheterization laboratory. Christian woodruff completion: The patient tolerated the procedure well. There were no complications. Findings Conclusions Summary: PATIENT NAME: MARJAN FLEMING 7 1. Study data: Transesophageal Echocardiogram fo r Watchman. 2. Procedure narrative: Transesophageal echocard iography was performed. A transesophageal probe was inserted by the dayton sthesiologist. Images were obtained using a GE cardiac ultrasound mac dalton. Impressions: Patient with [...] stable. Right groin suture removed by this ENTERPRISE SOFTWARE DEVELOPER. No infect ion, bleeding, or hematoma. Dermabond applied and intact. Patient was provided with post-Watchman discharg e instructions. Patient is to follow up with PCP and system designer in 1 t o 2 weeks post discharge. Patient is to follow up with system designer for th e 45-day WESLEY, and for anticoagulation recommendation. Prepared and electronically signed by Ashely Mckeon MD 06/24/2021 11:18 Electronically Signed by Mike Lund MD on at 1118 PATIENT NAME: MARJAN FLEMING 7 2021-06-17 18:10:00-00:00 [phone] [place] [address] PATIENT NAME: MARJAN FLEMING ADMIT DATE: 06/17/21 ACCOUNT NO: [id number] ROOM NO: [facility] AGE: 66 REPORT TYPE: eECHOCARDIOGRAM REPORT SEX: F ADMITTING PHYSICIAN:Mike Lund MD ATTENDING PHYSICIAN:Mike Lund MD *[address] [place] [address] Limited Transthoracic Echocardiogram Patient: Marjan Fleming Study Date: 06/17/2021 BP: 117 / 82 Location: [facility] URN: [id number] 2647 : 1955 Age: 66 Height: 64 in / 162.6 cm Gender: F Weight: 210 lb / 95.5 kg BMI/BSA: 36.1 kg/m 2 / 2.12 m 2 *Ordering Physician: * Bahman Chopra *Interpreting Physician: * Kevin Merino MD *Fare Enforcement Officer: * Tiarra Loja Indications: Post Watchman/Rule out pericardial effusion. Study data: Transthoracic echocardiogram, limite d study. Procedure: Transthoracic echocardiography was performed. Im age quality was adequate. Limited 2D and limited spectral Dopple r. Location: [facility]. Patient status: Outpatient. Study status: Routin e. [...] PATIENT NAME: MARJAN FLEMING 7 2021-06-17 11:12:00-00:[address] [facility] [place], [place] ([facility]) Discharge Summary REPORT#:[id number] REPORT STATUS: Signed DATE:06/17/21 TIME: 1112 PATIENT: MARJAN FLEMING UNIT #: [id number] ROOM/BED: [place] [address] : [birth year] AGE: 67 SEX: F ATTEND: René Lund MD ADM AUTHOR: Bahman Chopra * ALL edits or amendments must be made on the el ectronic/computer document * PCP PCP Discharge to: home [...] stable. Right groin suture removed by this ENTERPRISE SOFTWARE DEVELOPER. No infect ion, bleeding, or hematoma. Dermabond applied and intact. [facility]. Patient is to follow up with PCP and system designer in 1 to 2 we eks post discharge. Patient is to follow up with system designer for th e 45-day WESLEY, and for [...] breath, lightheadedness, or dizzi ness to the system designer. Dispo: It is medically necessary that patients [...] distress GI: soft, non-tender Extremities: moves all Neuro/CENTRIFUGAL CHILLER TECHNICIAN: alert, oriented X 3 Skin: dry Wound/incision: Location: Right groin suture removed by this ENTERPRISE SOFTWARE DEVELOPER. No infect ion, bleeding, or hematoma. Dermabond [...] Lund MD on 07/14 at 0946 RPT #:[id number] END OF REPORT 2021-06-17 09:43:00-00:00 [id number] [place] [address] PATIENT NAME: MARJAN FLEMING ADMIT DATE: 06/17/21 ACCOUNT NO: [id number] ROOM NO: ADDIS AGE: 66 REPORT TYPE: eELECTROCARDIOGRAM REPORT SEX: F ADMITTING PHYSICIAN:Mike Lund MD ATTENDING PHYSICIAN:Mike Lund MD Order: [id number] Test Reason : S/P WATCHMAN Test Date/Time [...] PATIENT NAME: MARJAN FLEMING 7 2021-06-17 08:54:00-00:00 [phone] [place] [address] PATIENT NAME: MARJAN FLEMING ADMIT DATE: 06/17/21 ACCOUNT NO: [id number] ROOM NO: ADDIS AGE: 66 REPORT TYPE: CARDIAC CATHETERIZATION REPORT SEX: F ADMITTING PHYSICIAN:Mike Lund MD ATTENDING PHYSICIAN:Mike Lund MD PROCEDURE DATE: 06/17/2021 PROCEDURE PERFORMED: Left atrial appendage closu re using a 24 mm Watchman FLX closure device. ACCESS: Right femoral vein, 16-Spanish closed wit h fmwngn-ot-goyob suture. DATA CENTER OPERATOR: Mike Lund MD. SECONDARY ENGINEERING INSPECTION ASSISTANT: Kevin Merino MD. COMPLICATIONS: None. BLEEDING: Less [...] I accessed right femo ral vein, placed 8-Spanish D Hanis sheath. Subsequently, upgraded to 16-Spanish sheath and gave a partial dose of heparin, then took the SL1 sheat h into the SVC over a wire with [place] needle inside, descended under the fluor oscopy [...] I removed the Watchman sheath and the 16-Spanish sheath and placed siplrd-hz-zxphn suture for hemostasis, then achieved a good hemo stasis. CONCLUSION: Left atrial appendage closure using a 24 mm Watchman FLX closure PATIENT NAME: MARJAN FLEMING 7 device. Dictated By: Mike Lund MD WT: CATH:GAYLE/RIKY/ALLA Conf#: [id number]/DID#: [id number] Authenticated by Mike Lund MD On 07/01/2021 12:30:01 PM Electronically Signed by Mike Lund MD on at 1230 PATIENT NAME: MARJAN FLEMING 48 2021-06-16 10:36:00-00:00 [id number] [place] [address] PATIENT NAME: MARJAN FLEMING ADMIT DATE: ACCOUNT NO: [id number] ROOM NO: AGE: 66 REPORT TYPE: eELECTROCARDIOGRAM REPORT SEX: F ADMITTING PHYSICIAN: ATTENDING PHYSICIAN:Mike Lund MD Order: [id number] Test Reason : PREOP Test Date/Time Stamp: [...]
[2022-11-07 07:54] LABS: Absolute Lymphocytes (CBC) 0.9 K/uL (0.7-4.9); Hematocrit 36.4 % (36.0-45.0); Lymphocytes % 18.7 % (15.3-44.8); MCV 82.7 fL (80-100)
[2022-11-07] MEDS ORDERED: NA CHLORIDE 0.9% 500 ML ONE (07:59)
[2022-11-07 08:03] LABS: Potassium 3.6 mEq/L (3.5-5.1); Troponin High Sensitivity 17.9 pg/mL (<58.9)
--- NOTE | 2022-11-07 08:23 | EDPHYS ---
Physician Documentation [facility] Name: Marjan Kolb Age: 67 yrs Sex: Female : 1955 Arrival Date: 11/07/2022 Time: 06:38 Bed 14 Private MD: ED Physician Heladio Collins HPI: 11/07 07:31 This 67 yrs old Female presents to ER via EMS with complaints of Shortness of breath. sp3 07:31 67-year-old female with history of bipolar disease, atrial fibrillation, angina, sp3 anxiety, among others with extensive documentation of her past medical history here due to her multiple visits now presents again for recurrent shortness of breath and anxiety type symptoms. She states she is compliant with her medications although she has not been in the past. She denies current chest pain, headache, fever, abdominal pain, nausea, vomiting, diarrhea, rash, or any other new signs or symptoms at this time.. Historical: - Allergies: 06:46 Azithromycin; aa9 06:46 Bactrim; aa9 06:46 butorphanol; aa9 06:46 Fentanyl; aa9 06:46 Reglan; aa9 06:46 Sulfa (Sulfonamide Antibiotics); aa9 06:46 TRIMETHOPRIM; aa9 - Home Meds: 09:00 lisinopril Oral [Active]; Metoprolol Tartrate Oral [Active]; sg5 - PMHx: 06:46 angina pectoris; angina pectoris; Anxiety; Atrial fibrillation; Bipolar disorder; aa9 esophageal varicies; Hepatitis; HIV positive; Hypertensive disorder; Migraine; panic attack; - Immunization history:: Adult Immunizations up to date. - Social history:: Smoking status: Patient/guardian denies using tobacco, the patient reports quitting approximately 1 years ago. ROS: 07:32 Constitutional: Negative for fever, chills, and weight loss, Eyes: Negative for injury, sp3 pain, redness, and discharge, ENT: Negative for injury, pain, and discharge, Neck: Negative for injury, pain, and swelling, Cardiovascular: Negative for chest pain, palpitations, and edema, Abdomen/GI: Negative for abdominal pain, nausea, vomiting, diarrhea, and constipation, Back: Negative for injury and pain, MS/Extremity: Negative for injury and deformity, Skin: Negative for injury, rash, and discoloration, Neuro: Negative for headache, weakness, numbness, tingling, and seizure, Psych: Negative for depression, anxiety, suicide ideation, homicidal ideation, and hallucinations, Allergy/Immunology: Negative for hives, rash, and allergies, Endocrine: Negative for neck swelling, polydipsia, polyuria, polyphagia, and marked weight changes. 07:32 All other systems are negative. Exam: 07:33 Constitutional: This is a well developed, well nourished patient who is awake, alert, sp3 and in no acute distress. Head/Face: Normocephalic, atraumatic. Eyes: Pupils equal round and reactive to light, extra-ocular motions intact. Lids and lashes normal. Conjunctiva and sclera are non-icteric and not injected. Cornea within normal limits. Periorbital areas with no swelling, redness, or edema. Neck: Trachea midline, no thyromegaly or masses palpated, and no cervical lymphadenopathy. Supple, full range of motion without nuchal rigidity, or vertebral point tenderness. No Meningismus. Chest/axilla: Normal chest wall appearance and motion. Nontender with no deformity. No lesions are appreciated. Cardiovascular: Regular rate and rhythm with a normal S1 and S2. No gallops, murmurs, or rubs. Normal PMI, no JVD. No pulse deficits. Respiratory: Lungs have equal breath sounds bilaterally, clear to auscultation and percussion. No rales, rhonchi or wheezes noted. No increased work of breathing, no retractions or nasal flaring. Abdomen/GI: Soft, non-tender, with normal bowel sounds. No distension or tympany. No guarding or rebound. No evidence of tenderness throughout. Back: No spinal tenderness. No costovertebral tenderness. Full range of motion. Skin: Warm, dry with normal turgor. Normal color with no rashes, no lesions, and no evidence of cellulitis. 07:58 ECG was reviewed by the Attending Physician. EKG demonstrates normal sinus rhythm at 60 sp3 bpm with normal intervals and borderline QTc of 488 with mildly leftward axis nonspecific diffuse ST/T changes without evidence of acute ischemia. Vital Signs: 06:44 BP 216 / 125; Pulse 65; Resp 21; Temp 97.9; Pulse Ox 99% on 3 lpm NC; Weight 81.65 kg; aa9 Height 5 ft. 4 in. ; 07:10 Pulse Ox 96% on R/A; sg5 07:10 BP 190 / 162; Pulse 61; Resp 18; Pulse Ox 100% on 3 lpm NC; Pain 5/10; sg5 08:30 BP 206 / 111; Pulse 63; Resp 20; Pulse Ox 98% on 3 lpm NC; Pain 5/10; sg5 06:44 Body Mass Index 30.90 (81.65 kg, 162.56 cm) aa9 07:10 Pain Scale: Adult sg5 08:30 Pain Scale: Adult sg5 MDM: 07:01 Patient medically screened. sp3 07:33 Data reviewed: vital signs, nurses notes, lab test result(s), EKG. ED course: sp3 67-year-old female with extensive past medical history and multiple recurrent visits now here for recurrent shortness of breath. She is currently not in any acute distress in room air pulse ox is 97%. Respiratory rate is 14-16. She is hypertensive but likely is not taking her medications due to her multiple noncompliance in the past. We will obtain chest x-ray, EKG, laboratory values and if negative safely discharge her home. I am not highly suspicious for acute coronary syndrome, PE, TAD, TIA/CVA spectrum, infection/pneumonia, pneumothorax, or any other critical pathology at this time.. 08:21 ED course: Chest x-ray demonstrates cardiomegaly which is old and no acute other 3 abnormality. Laboratory values are negative including troponin. We will safely discharge patient home at this time.. 11/07 07:21 Order name: Basic Metabolic Panel; Complete Time: 08:21 [facility] 11/07 07:21 Order name: CBC with Diff; Complete Time: 08:21 3 11/07 07:21 Order name: Troponin HS; Complete Time: 08:21 [facility] 11/07 07:21 Order name: XRAY Chest (1 view) [facility] 11/07 07:21 Order name: EKG; Complete Time: 07:22 [facility] 11/07 07:21 Order name: Cardiac monitoring; Complete Time: 08:01 [facility] 11/07 07:21 Order name: EKG - Nurse/Tech; Complete Time: 08:01 [facility] 11/07 07:21 Order name: IV Saline Lock; Complete Time: 07:41 [facility] 11/07 07:21 Order name: Labs collected and sent; Complete Time: 07:41 sp3 11/07 07:21 Order name: O2 Sat Monitoring; Complete Time: 07:41 sp3 Administered Medications: 07:53 Drug: NS 0.9% IV 500 ml Route: IV; Rate: bolus; Site: right hand; sg5 08:58 Follow up: IV Status: Completed infusion; IV Intake: 500ml sg5 Disposition Summary: 11/07/22 08:22 Discharge Ordered Location: Home sp3 Condition: Stable sp3 Diagnosis - Dyspnea now resolved, hypertension sp3 Discharge Instructions: - Discharge Summary Sheet sp3 - Hypertension, Adult sp3 - Shortness of Breath, Adult sp3 Forms: - Medication Reconciliation Form sp3 - Thank You Letter sp3 - Antibiotic Education sp3 - Prescription Opioid Use sp3 Signatures: Dispatcher [employer] Heladio Jang MD MD sp3 Angelica Carlson RN RN aa9 Leyda Maguire RN RN sg5
--- NOTE | 2022-11-07 08:23 | ER ---
Nurse's Notes [facility] Name: Marjan Kolb Age: 67 yrs Sex: Female : 1955 Arrival Date: 11/07/2022 Time: 06:38 Bed 14 Private MD: Diagnosis: Dyspnea now resolved, hypertension Presentation: 11/07 06:44 Chief complaint: Patient states: I feel like I can't catch my breath. Ebola Screen: No aa9 symptoms or risks identified at this time. Initial Sepsis Screen: Does the patient meet any 2 criteria? No. Patient's initial sepsis screen is negative. Does the patient have a suspected source of infection? No. Patient's initial sepsis screen is negative. Risk Assessment: Do you want to hurt yourself or someone else? Patient reports no desire to harm self or others. Onset of symptoms was November 07, 2022. 06:44 Method Of Arrival: EMS: [facility] aa9 06:44 Acuity: BLAYNE 3 aa9 09:00 Coronavirus screen: At this time, the client does not indicate any symptoms associated sg5 with coronavirus-19. Triage Assessment: 06:46 General: Appears uncomfortable, unkempt, Behavior is calm, cooperative. Pain: Complains aa9 of pain in headache Pain currently is 5 out of 10 on a pain scale. Also complains of nausea. Neuro: Level of Consciousness is awake, alert, obeys commands, Oriented to person, place, time, situation. Cardiovascular: Denies chest pain. Respiratory: Airway is patent Respiratory effort is even, unlabored. GI: Reports nausea, Patient currently denies vomiting. : No signs and/or symptoms were reported regarding the genitourinary system. Derm: Skin is intact, is fragile, is thin. Historical: - Allergies: 06:46 Azithromycin; aa9 06:46 Bactrim; aa9 06:46 butorphanol; aa9 06:46 Fentanyl; aa9 06:46 Reglan; aa9 06:46 Sulfa (Sulfonamide Antibiotics); aa9 06:46 TRIMETHOPRIM; aa9 - Home Meds: 09:00 lisinopril Oral [Active]; Metoprolol Tartrate Oral [Active]; sg5 - PMHx: 06:46 angina pectoris; angina pectoris; Anxiety; Atrial fibrillation; Bipolar disorder; aa9 esophageal varicies; Hepatitis; HIV positive; Hypertensive disorder; Migraine; panic attack; - Immunization history:: Adult Immunizations up to date. - Social history:: Smoking status: Patient/guardian denies using tobacco, the patient reports quitting approximately 1 years ago. Screenin:53 [facility] ED Fall Risk Assessment (Adult) History of falling in the last 3 months, sg5 including since admission No falls in past 3 months (0 pts). Abuse screen: Denies threats or abuse. Nutritional screening: No deficits noted. Tuberculosis screening: No symptoms or risk factors identified. Assessment: 07:53 General: Appears in no apparent distress. comfortable. Pain: Complains of pain in head. sg5 Neuro: Level of Consciousness is awake, alert, obeys commands, Oriented to person, place, time, situation, Appropriate for age. Cardiovascular: Capillary refill < 3 seconds Patient's skin is warm and dry. Respiratory: Airway is patent Trachea midline Respiratory effort is even, unlabored, Respiratory pattern is regular, symmetrical. Respiratory: Reports shortness of breath on exertion. GI: No signs and/or symptoms were reported involving the gastrointestinal system. : No signs and/or symptoms were reported regarding the genitourinary system. EENT: No signs and/or symptoms were reported regarding the EENT system. Derm: No signs and/or symptoms reported regarding the dermatologic system. Musculoskeletal: No signs and/or symptoms reported regarding the musculoskeletal system. 08:59 Reassessment: per provider patient needs to take morning blood pressure medication as sg5 indicated and directed. Vital Signs: 06:44 BP 216 / 125; Pulse 65; Resp 21; Temp 97.9; Pulse Ox 99% on 3 lpm NC; Weight 81.65 kg; aa9 Height 5 ft. 4 in. ; 07:10 Pulse Ox 96% on R/A; sg5 07:10 BP 190 / 162; Pulse 61; Resp 18; Pulse Ox 100% on 3 lpm NC; Pain 5/10; sg5 08:30 BP 206 / 111; Pulse 63; Resp 20; Pulse Ox 98% on 3 lpm NC; Pain 5/10; sg5 06:44 Body Mass Index 30.90 (81.65 kg, 162.56 cm) aa9 07:10 Pain Scale: Adult sg5 08:30 Pain Scale: Adult sg5 ED Course: 06:44 Patient arrived in ED. aa9 06:46 Triage completed. aa9 06:47 Arm band placed on. aa9 06:47 Patient has correct armband on for positive identification. Bed in low position. Call aa9 light in reach. Side rails up X2. Client placed on continuous cardiac and pulse oximetry monitoring. NIBP monitoring applied. 07:00 Heladio Collins MD is Attending Physician. sp3 07:41 Basic Metabolic Panel Sent. ss 07:41 CBC with Diff Sent. ss 07:41 Troponin HS Sent. ss 07:41 Inserted saline lock: 24 gauge in right hand, using aseptic technique. Blood collected. ss 07:49 Leyda Maguire, RN is Primary Nurse. sg5 07:53 XRAY Chest (1 view) In Process Unspecified. EDMS 09:00 No provider procedures requiring assistance completed. IV discontinued. sg5 Administered Medications: 07:53 Drug: NS 0.9% IV 500 ml Route: IV; Rate: bolus; Site: right hand; sg5 08:58 Follow up: IV Status: Completed infusion; IV Intake: 500ml sg5 Medication: 09:01 VIS not applicable for this client. sg5 Intake: 08:58 IV: 500ml; Total: 500ml. sg5 Outcome: 08:22 Discharge ordered by . sp3 09:00 Discharged to home ambulatory. sg5 09:00 Condition: good 09:00 Discharge instructions given to patient, Instructed on discharge instructions, follow up and referral plans. 09:01 Patient left the ED. sg5 Signatures: Dispatcher [employer] EDGA Sandra Green RN RN Heladio Collins MD MD sp3 Angelica Carlson RN RN [facility] Leyda Maguire, RN RN sg5 Corrections: (The following items were deleted from the chart) 08:04 07:42 BP 190 / 62; Pulse 62bpm; ss ss
--- NOTE | 2022-11-07 08:33 | RAD REPORT ---
EXAM DESCRIPTION: RADChest Single View11/07/2022 7:51 am CLINICAL HISTORY: CHEST PAIN COMPARISON: Chest Single View dated 10/02/2022; Chest Pa And Lat (2 Views) dated 09/24/2022; Chest Sing le View dated 09/22/2022; Chest Single View dated 09/22/2022 TECHNIQUE: Portable AP view of the chest. FINDINGS: New central interstitial prominence and left basilar fluffy opacities. No pneumothorax or effusion. The cardiomediastinal contours are unremarkable. IMPRESSION: New central interstitial prominence and left basal fluffy opacities. Findings suggest mi ld central congestion, however superimposed left basilar early pneumonia or atelectasis cannot be ent irely excluded.
[2022-11-07 09:32] VITALS: TEMP 97.9
[2022-11-07 09:35] VITALS: BP 206/111; O2SAT 98
--- NOTE | 2022-11-08 17:51 | EKG ---
Test Date: 2022-11-07 Test Time: 07:49:17 Injection Molding Operator: JA MEASUREMENT RESULTS: Intervals: Rate: 60 NC: 194 QRSD: 90 QT: 488 QTc: 488 [place]: P: 18 NC: 194 QRS: -7 T: -23 INTERPRETIVE STATEMENTS: Normal sinus rhythm Voltage criteria for left ventricular hypertrophy Nonspecific ST and T wave abnormality Prolonged QT Abnormal ECG Compared to ECG 09/24/2022 10:54:32 ST (T wave) deviation now present Prolonged QT interval now present Sinus bradycardia no longer present Early repolarization no longer present Electronically Signed On 11-08-22 17:49:31 CDT by Mike Lund
== END 2022-11-07 09:01 | disposition home or self-care (01) ==
LOC: ER 06:38
DX: I10 Essential (primary) hypertension (principal); I48.91 Unspecified atrial fibrillation; F41.9 Anxiety disorder, unspecified; Z21 Asymptomatic human immunodeficiency virus [HIV] infection status; Z88.1 Allergy status to other antibiotic agents; Z88.2 Allergy status to sulfonamides; Z88.3 Allergy status to other anti-infective agents; Z88.8 Allergy status to other drugs, medicaments and biological substances
CPT/HCPCS: 93005; 85025; 80048; 36415; 84484; 71045; 96360; 99284; J7040

== ENCOUNTER 2022-11-09 12:16 | Emergency (ER) | payer OTHER ==
--- OUTSIDE RECORDS SUMMARY | 2022-11-09 12:39 | XMS REPORT | Continuity of Care Document ---
:1955 Author Organization [facility] t Address [address] [place] [address] Care Team Providers Name Role Phone Urmila [...] Attending Clinician Unavailable Robbi Bal Attending Clinician [facility] Attending Clinician Unavailable Isaias Whiteside RN Attending Clinician Unavailable TOMY MARIE Attending Clinician Unavailable Reilly Means MD Attending Clinician Ofe Shields MD Attending Clinician Tomy Marie MD Attending Clinician Doctor Unassigned, Corinne Attending Clinician Unavailable Bill COLES Attending Clinician Unavailable Bill Rose Attending Clinician CHARITY MCALLISTER Attending Clinician Unavailable Charity Mcallister MD Attending Clinician GADIEL KOEHLER Attending Clinician Unavailable Mike Lund Attending Clinician Unavailable NIKOLAI REEVES Attending Clinician Unavailable Eliseo Arce MD Attending Clinician Carol Ann IZQUIERDO, Sarai Lieberman Attending Clinician [phone] Ashly Pelletier MA Attending Clinician Unavailable [...] RAMIREZ, Michael Corbin Attending Clinician Unavailable Team, [facility] Attending Clinician UnavailDO PORSHA Newell Attending Clinician Unavailable Gadiel Koehler MD Attending Clinician Tyrone JENKINS, Eveline Sierra Attending Clinician Eladio Colorado RN Attending Clinician Unavailable Geraldine SALGUERO, Leyda Attending Clinician [phone] Selvin RAMIREZ, Stefanie Attending Clinician Unavailable [...] Number Effective Date Expiration Date S gabino [facility] [id number] 2012 STAR PLUS OON 00:00:00 [facility] [id number] 2019 DUAL COMPLETE HMO 00:00:00 FORMERLY [facility] [id number] 2019 PLUS 00:00:00 [facility] [id number] 2019 [facility] STAR 00:00:00 [employer] MEDICARE ADV [id number] 2019 2019 00:00:00 00:00:00 Problems Condition Condition Condition Status Onset Resolution Last Treating Co mments Source Name Details Category Date Date Treatment Clinician Date Dyspnea, Dyspnea, Disease Active Unive rs unspecifie unspecifie 02-11 it y of d type d type 00:00: [place] [address] Medical Branch Gastropare Gastropare Disease Active Overview : Methodi sis sis 4-[address] 00:00: [facility] note l might be different from the original. Added automatic ally from request for surgery [id number] Dysphagia Dysphagia Disease Active Overview: Methodi 4-[address] 00:00: [facility] 00 note l might be different from the original. Added automatic ally from request for surgery [id number] CCL / EPS CCL / EPS Diagnosis Active 2020-10-15 Get PVI PVI 3-30 17:07:00 l ABLATION ABLATION 00:00: Patel n W/ CARTO / W/ CARTO / 00 GA / T GA / T Active 08/19/2020 [facility] Food Food Disease Active 2019-05 Methodi [...] [facility] hoxazole 1-25 Clear 00:00: Garcia 00 [facility] trimetho DA Active SV [facility] prim 1-25 Clear 00:00: Garcia [facility] codeine DA Active SV N/V [facility] 1-25 Clear 00:00: Garcia [facility] Metoclop Propensi Active [place] ramide [...] 2017- Univers INGREDI 2-08 ity of 00:00: [place] [facility] TRIMETHO DRUG Active Hives Univers [...] Stop Date Source Natural father Diabetes [facility] Natural father Other - see comments [facility] Hy[facility] father [facility] Natural mother [facility] Social History Social Habit Start Date Stop Date Quantity Comments Source Gender identity 2020-10-06 Identifies as Method ist 15:23:56 female gender Hospital (finding) History SDOH [facility] Alcohol Frequency Hospita l History SDOH [facility] Alcohol Std Drinks Hospit al History SDOH [facility] Binge [facility] Sexual orientation [facility] History of Social 2022-08-26 2022-08-[address] function 00:00:00 00:00:00 Hospital Exposure to 2022-04-30 2022-05-10 Yes University of SARS-CoV-2 (event) 00:00:00 10:25:00 [facility] Tobacco use and 2022-02-11 2022-02-11 Former smokeless Uni versity of exposure 00:00:00 00:00:[address] [facility] Tobacco Comment 2022-02-11 2022-02-11 Smokes approx 1-2 Un iversity of 00:00:00 00:00:00 cigarettes per [facility] day when she Branch smokes Alcohol intake 2020-12-08 2020-12-08 Current drinker [facility] 00:00:00 00:00:[address] [facility] Hospital (finding) Cigarettes smoked 2020-09-05 2020-09-[address] current (pack per 00:00:00 00:00:00 Hospita l day) - Reported Cigarette 2020-09-05 2020-09-05 [facility] pack-years 00:00:00 00:00:00 Hospital Alcohol Comment 2016-09-23 2016-09-23 rare [facility] 00:00:00 00:00:00 Hospital History of tobacco 2011-09-29 User of smokeless University of use 00:00:00 tobacco [facility] Sex Assigned At [birth year] [facility] 00:00:00 00:00:00 Smoking Status Start Date Stop Date Source Ex-smoker 2022-02-11 00:00:00 2022-02-11 00:00:00 [facility] [place] [facility] Medications Ordered Filled Start Stop Current Ordering Indication Dosage Frequency Signature Comments Components Source Medication Medication Date Date Medication? Clinician (SIG) Name Name pelontay Yes [id number] Take one Univers ne-tenofovi 6-12 po daily ity of r alafen 00:00: [place] (DESCOVY) 00 Medical tablet Branch raltegravir Yes [id number] 400mg Take 1 Univers (ISENTRESS) 6-12 tablet by ity of 400 mg 00:00: mouth in [place] tablet 00 the Medical morning Branch and 1 tablet in the evening. DESCOVY Yes [id number] Take one Univers tablet 5-08 po daily ity of 00:00: [place] 00 Medical Branch raltegravir Yes [id number] 400mg Take 1 Univers (ISENTRESS) 5-08 tablet by ity of 400 mg 00:00: mouth in [place] tablet 00 the Medical morning Branch and 1 tablet in the evening. DESCOVY 2022- No [id number] Take one Univers tablet 5-08 06-12 po daily ity of 00:00: 00:00 [place] 00 :00 Medical Branch raltegravir 2022- No [id number] 400mg Take 1 Univers (ISENTRESS) 5-08 06-12 tablet by it y of 400 mg 00:00: 00:00 mouth in [place] tablet 00 :00 the Medical morning Branch and 1 tablet in the evening. emtricitabi Yes [id number] Take one Univers ne-tenofovi 4-04 po daily ity of r alafen 00:00: [place] (DESCOVY) 00 Medical tablet Branch emtricitabi Yes [id number] Take one Univers ne-tenofovi 4-04 po daily ity of r alafen 00:00: [place] (DESCOVY) 00 Medical tablet Branch emtricitabi 2022- No [id number] Take one Univers ne-tenofovi 4-04 05-08 po daily ity of r alafen 00:00: 00:00 [place] (DESCOVY) 00 :00 Medical tablet Branch potassium 2021-05- No 10meq 10 mEq, IV Univers chloride in 2-19 12-19 Piggyback, i ty of water 10 20:00: 22:00 ONCE, 1 [place] mEq/100 mL 00 :00 dose, On Medic al RTU 10 mEq [facility] 05/10/22 at 1400, Administer over 60 Minutes, 100 mL magnesium 2021-05 No 800mg 800 mg, Uni vers oxide 07-11 Oral, ity of (MAG-OX 20:00: 19:37 ONCE, 1 [place] 400) tablet 00 :00 dose, On Medi porfirio 800 mg [facility] 05/10/22 at 1400, Routine KCL 2021-05 No 40meq 40 mEq, Univers (KLOR-CON 07-11 Oral, ity of M20) tablet 19:15: 19:37 [place]CE, 1 [place] 40 mEq 00 :00 dose, On Medical [facility] 05/10/22 at 1315, JOE hydralAZINE 2021-05 No 10mg 10 mg, Uni vers (APRESOLINE 07-11 Slow IV ity of ) injection 18:45: 18:42 [place] 10 mg 00 :00 ONCE, 1 Medical dose, On [facility] 05/10/22 at 1245, JOE NaCl 0.9% 2021-05 No 1000mL at 999 Uni vers (NS) bolus 07-11 mL/hr, ity of infusion 17:45: 20:00 1,000 mL, [place] 1,000 mL 00 :00 IV Medical Infusion, Branch ONCE, 1 dose, On [facility] 05/10/22 at 1145, JOE cefpodoxime 2021-05- No [id number] 100mg Take 1 Univers 100 mg 2-17 12-25 tablet by ity of tablet 00:00: 05:59 mouth in [place] 00 :00 the [facility] and 1 tablet in the evening. Do all this for 7 days. cefpodoxime 2021-05- No [id number] 100mg Take 1 Univers 100 mg 2-17 12-25 tablet by ity of tablet 00:00: 05:59 mouth in [place] 00 :00 the [facility] and 1 tablet in the evening. Do all this for 7 days. cefpodoxime 2021-05- No [id number] 100mg Take 1 Univers 100 mg 2-17 [...] Medical ONCE, 1 Branch dose, On [facility] 05/06/22 at 1800, JOE ketorolac 2021-05 No 15mg 15 mg, Unive rs (TORADOL) 2-15 12-15 Slow IV ity of injection 22:00: 22:19 Push, [place] 15 mg 00 :00 ONCE, 1 Medical dose, On Branch [facility] 05/06/22 at 1600, JOE NaCl 0.9% 2021-05- No 1000mL at 999 Uni vers (NS) bolus 2-15 12-15 mL/hr, ity of infusion 22:00: 23:41 1,000 mL, [place] 1,000 mL 00 :00 IV Medical Infusion, Branch ONCE, 1 dose, On [facility] 05/06/22 at 1600, JOE ondansetron 2021-05- No 8mg 8 mg, Slow Univers (ZOFRAN 2-15 12-15 IV Push, ity of (PF)) 21:15: 22:19 ONCE, 1 [place] injection 8 00 :00 dose, On Medi porfirio mg [place] 05/06/22 at 1515, JOE ondansetron 2021-05 Yes [id number] 1-2 U nivers 4 mg tablet 2-15 tablets ity o f 00:00: every 8 [place] 00 hours as Medical needed for Branch nausea benzonatate 2021-05 Yes [id number] 200mg Take 1 Univers 200 mg 2-15 capsule by ity of capsule 00:00: mouth 3 [place] 00 (three) Medical times Branch daily as needed for Cough. albuterol 2021-05 Yes [id number] 2{puff} Inhale 2 Univers 90 2-15 Puffs ity of mcg/actuati 00:00: every 4 [place] on inhaler 00 (four) Medical hours as Branch needed for Wheezing or Shortness of Breath. butalbital- 2021-05 Yes [id number] 1{tbl} Take 1 Univers acetaminoph 2-15 tablet by ity of en-caff 00:00: mouth [place] 50-325-40 00 every 4 Medical mg tablet (four) Branch hours as needed (headache) . ondansetron 2021-05 Yes [id number] 1-2 U nivers 4 mg tablet 2-15 tablets ity o f 00:00: every 8 [place] 00 hours as Medical needed for Branch nausea benzonatate 2021-05 Yes [id number] 200mg Take 1 Univers 200 mg 2-15 capsule by ity of capsule 00:00: mouth 3 [place] 00 (three) Medical times Branch daily as needed for Cough. albuterol 2021-05 Yes [id number] 2{puff} Inhale 2 Univers 90 2-15 Puffs ity of mcg/actuati 00:00: every 4 [place] on inhaler 00 (four) Medical hours as Branch needed for Wheezing or Shortness of Breath. butalbital- 2021-05 Yes [id number] 1{tbl} Take 1 Univers acetaminoph 2-15 tablet by ity of en-caff 00:00: mouth [place] 50-325-40 00 every 4 Medical mg tablet (four) Branch hours as needed (headache) . ondansetron 2021-05 Yes [id number] 1-2 U nivers 4 mg tablet 2-15 tablets ity o f 00:00: every 8 [place] 00 hours as Medical needed for Branch nausea benzonatate 2021-05 Yes [id number] 200mg Take 1 Univers 200 mg 2-15 capsule by ity of capsule 00:00: mouth 3 [place] 00 (three) Medical times Branch daily as needed for Cough. albuterol 2021-05 Yes [id number] 2{puff} Inhale 2 Univers 90 2-15 Puffs ity of mcg/actuati 00:00: every 4 [place] on inhaler 00 (four) Medical hours as Branch needed for Wheezing or Shortness of Breath. butalbital- 2021-05 Yes [id number] 1{tbl} Take 1 Univers acetaminoph 2-15 tablet by ity of en-caff 00:00: mouth [place] 50-325-40 00 every 4 Medical mg tablet (four) Branch hours as needed (headache) . ondansetron 2021-05 Yes [id number] 1-2 U nivers 4 mg tablet 2-15 tablets ity o f 00:00: every 8 [place] 00 hours as Medical needed for Branch nausea benzonatate 2021-05 Yes [id number] 200mg Take 1 Univers 200 mg 2-15 capsule by ity of capsule 00:00: mouth 3 [place] 00 (three) Medical times Branch daily as needed for Cough. albuterol 2021-05 Yes [id number] 2{puff} Inhale 2 Univers 90 2-15 Puffs ity of mcg/actuati 00:00: every 4 [place] on inhaler 00 (four) Medical hours as Branch needed for Wheezing or Shortness of Breath. butalbital2021-05 Yes [id number] 1{tbl} Take 1 Univers acetaminoph 2-15 tablet by ity of en-caff 00:00: mouth [place] 50-325-40 00 every 4 Medical mg tablet (four) Branch hours as needed (headache) . ondansetron 2021-05 Yes [id number] 1-2 U nivers 4 mg tablet 2-15 tablets ity o f 00:00: every 8 [place] 00 hours as Medical needed for Branch nausea benzonatate 2021-05 Yes [id number] 200mg Take 1 Univers 200 mg 2-15 capsule by ity of capsule 00:00: mouth 3 [place] 00 (three) Medical times Branch daily as needed for Cough. albuterol 2021-05 Yes [id number] 2{puff} Inhale 2 Univers 90 2-15 Puffs ity of mcg/actuati 00:00: every 4 [place] on inhaler 00 (four) Medical hours as Branch needed for Wheezing or Shortness of Breath. butalbital- 2021-05 Yes [id number] 1{tbl} Take 1 Univers acetaminoph 2-15 tablet by ity of en-caff 00:00: mouth [place] 50-325-40 00 every 4 Medical mg tablet (four) Branch hours as needed (headache) . ondansetron 2021-05 Yes [id number] 1-2 U nivers 4 mg tablet 2-15 tablets ity o f 00:00: every 8 [place] 00 hours as Medical needed for Branch nausea benzonatate 2021-05 Yes [id number] 200mg Take 1 Univers 200 mg 2-15 capsule by ity of capsule 00:00: mouth 3 [place] 00 (three) Medical times Branch daily as needed for Cough. albuterol 2021-05 Yes [id number] 2{puff} Inhale 2 Univers 90 2-15 Puffs ity of mcg/actuati 00:00: every 4 [place] on inhaler 00 (four) Medical hours as Branch needed for Wheezing or Shortness of Breath. butalbital- 2021-05 Yes [id number] 1{tbl} Take 1 Univers acetaminoph 2-15 tablet by ity of en-caff 00:00: mouth [place] 50-325-40 00 every 4 Medical mg tablet (four) Branch hours as needed (headache) . ondansetron 2021-05 Yes [id number] 1-2 U nivers 4 mg tablet 2-15 tablets ity o f 00:00: every 8 [place] 00 hours as Medical needed for Branch nausea benzonatate 2021-05 Yes [id number] 200mg Take 1 Univers 200 mg 2-15 capsule by ity of capsule 00:00: mouth 3 [place] 00 (three) Medical times Branch daily as needed for Cough. albuterol 2021-05 Yes [id number] 2{puff} Inhale 2 Univers 90 2-15 Puffs ity of mcg/actuati 00:00: every 4 [place] on inhaler 00 (four) Medical hours as Branch needed for Wheezing or Shortness of Breath. butalbital- 2021-05 Yes [id number] 1{tbl} Take 1 Univers acetaminoph 2-15 tablet by ity of en-caff 00:00: mouth [place] 50-325-40 00 every 4 Medical mg tablet (four) Branch hours as needed (headache) . ondansetron 2021-05 Yes [id number] 1-2 U nivers 4 mg tablet 2-15 tablets ity o f 00:00: every 8 [place] 00 hours as Medical needed for Branch nausea benzonatate 2021-05 Yes [id number] 200mg Take 1 Univers 200 mg 2-15 capsule by ity of capsule 00:00: mouth 3 [place] 00 (three) Medical times Branch daily as needed for Cough. albuterol 2021-05 Yes [id number] 2{puff} Inhale 2 Univers 90 2-15 Puffs ity of mcg/actuati 00:00: every 4 [place] on inhaler 00 (four) Medical hours as Branch needed for Wheezing or Shortness of Breath. butalbital- 2021-05 Yes [id number] 1{tbl} Take 1 Univers acetaminoph 2-15 tablet by ity of en-caff 00:00: mouth [place] 50-325-40 00 every 4 Medical mg tablet (four) Branch hours as needed (headache) . ondansetron 2021-05 Yes [id number] 1-2 U nivers 4 mg tablet 2-15 tablets ity o f 00:00: every 8 [place] 00 hours as Medical needed for Branch nausea benzonatate 2021-05 Yes [id number] 200mg Take 1 Univers 200 mg 2-15 capsule by ity of capsule 00:00: mouth 3 [place] 00 (three) Medical times Branch daily as needed for Cough. albuterol 2021-05 Yes [id number] 2{puff} Inhale 2 Univers 90 2-15 Puffs ity of mcg/actuati 00:00: every 4 [place] on inhaler 00 (four) Medical hours as Branch needed for Wheezing or Shortness of Breath. butalbital- 2021-05 Yes [id number] 1{tbl} Take 1 Univers acetaminoph 2-15 tablet by ity of en-caff 00:00: mouth [place] 50-325-40 00 every 4 Medical mg tablet (four) Branch hours as needed (headache) . ondansetron 2021-05 Yes [id number] 1-2 U nivers 4 mg tablet 2-15 tablets ity o f 00:00: every 8 [place] 00 hours as Medical needed for Branch nausea benzonatate 2021-05 Yes [id number] 200mg Take 1 Univers 200 mg 2-15 capsule by ity of capsule 00:00: mouth 3 [place] 00 (three) Medical times Branch daily as needed for Cough. albuterol 2021-05 Yes [id number] 2{puff} Inhale 2 Univers 90 2-15 Puffs ity of mcg/actuati 00:00: every 4 [place] on inhaler 00 (four) Medical hours as Branch needed for Wheezing or Shortness of Breath. butalbital- 2021-05 Yes [id number] 1{tbl} Take 1 Univers acetaminoph 2-15 tablet by ity of en-caff 00:00: mouth [place] 50-325-40 00 every 4 Medical mg tablet (four) Branch hours as needed (headache) . [facility] 2021-05- No [id number] 2{tbl} Take 2 Univers r-ritonavir 2-15 12-21 tablets by i ty of (PAXLOVID, 00:00: 05:59 mouth in [place] EUA,) 300 00 :00 the Medical mg (150 mg morning Branch x 2)-100 mg and 2 tablet tablets in the evening. Do all this for 5 days. [facility] 2021-05- No [id number] 2{tbl} Take 2 Univers r-ritonavir 2-15 12-21 tablets by i ty of (PAXLOVID, 00:00: 05:59 mouth [place] EUA,) 300 00 :00 the Medical mg (150 mg morning Branch x 2)-100 mg and 2 tablet tablets in the evening. Do all this for 5 days. [facility] 2021-05- No [id number] 2{tbl} Take 2 Univers r-ritonavir 2-15 12-21 tablets by i ty of (PAXLOVID, 00:00: 05:59 mouth in [place] EUA,) 300 00 :00 the Medical mg (150 mg morning Branch x 2)-100 mg and 2 tablet tablets in the evening. Do all this for 5 days. [facility] 2021-05- No [id number] 2{tbl} Take 2 Univers r-ritonavir 2-15 12-21 [...] 04/22/22 at 1645, Routine amoxicillin 2021-05 Yes [id number] 1{tbl} Take 1 Univers -clavulanat 2-01 [id number] tablet by i ty of e 875-125 00:00: mouth [place] mg per 00 every 12 Medical tablet (twelve) Branch hours. ondansetron 2021-05 Yes [id number] 4mg Take 1 Univers 4 mg 2- 050028 tablet by ity of disintegrat 00:00: mouth [place] ing tablet 00 every 8 Medica l (eight) Branch hours as needed for Nausea and Vomiting (N/V). amoxicillin 2021-05 Yes [id number] 1{tbl} Take 1 Univers -clavulanat 2- [id number] tablet by i ty of e 875-125 00:00: mouth [place] mg per 00 every 12 Medical tablet (twelve) Branch hours. ondansetron 2021-05 Yes [id number] 4mg Take 1 Univers 4 mg 2- [id number] tablet by ity of disintegrat 00:00: mouth [place] ing tablet 00 every 8 Medica l (eight) Branch hours as needed for Nausea and Vomiting (N/V). amoxicillin 2021-05 Yes [id number] 1{tbl} Take 1 Univers -clavulanat 2-01 [id number] tablet by i ty of e 875-125 00:00: mouth [place] mg per 00 every 12 Medical tablet (twelve) Branch hours. ondansetron 2021-05 Yes [id number] 4mg Take 1 Univers 4 mg 2-01 [id number] tablet by ity of disintegrat 00:00: mouth [place] ing tablet 00 every 8 Medica l (eight) Branch hours as needed for Nausea and Vomiting (N/V). amoxicillin 2021-05 Yes [id number] 1{tbl} Take 1 Univers -clavulanat 2-01 [id number] tablet by i ty of e 875-125 00:00: mouth [place] mg per 00 every 12 Medical tablet (twelve) Branch hours. ondansetron 2021-05 Yes [id number] 4mg Take 1 Univers 4 mg 2-01 268412 tablet by ity of disintegrat 00:00: mouth [place] ing tablet 00 every 8 Medica l (eight) Branch hours as needed for Nausea and Vomiting (N/V). amoxicillin 2021-05 Yes [id number] 1{tbl} Take 1 Univers -clavulanat 2-01 [id number] tablet by i ty of e 875-125 00:00: mouth [place] mg per 00 every 12 Medical tablet (twelve) Branch hours. ondansetron 2021-05 Yes [id number] 4mg Take 1 Univers 4 mg 2- [id number] tablet by ity of disintegrat 00:00: mouth [place] ing tablet 00 every 8 Medica l (eight) Branch hours as needed for Nausea and Vomiting (N/V). amoxicillin 2021-05 Yes [id number] 1{tbl} Take 1 Univers -clavulanat 2- [id number] tablet by i ty of e 875-125 00:00: mouth [place] mg per 00 every 12 Medical tablet (twelve) Branch hours. ondansetron 2021-05 Yes [id number] 4mg Take 1 Univers 4 mg 2- [id number] tablet by ity of disintegrat 00:00: mouth [place] ing tablet 00 every 8 Medica l (eight) Branch hours as needed for Nausea and Vomiting (N/V). amoxicillin 2021-05 Yes [id number] 1{tbl} Take 1 Univers -clavulanat 2- [id number] tablet by i ty of e 875-125 00:00: mouth [place] mg per 00 every 12 Medical tablet (twelve) Branch hours. ondansetron 2021-05 Yes [id number] 4mg Take 1 Univers 4 mg 2- 141674 tablet by ity of disintegrat 00:00: mouth [place] ing tablet 00 every 8 Medica l (eight) Branch hours as needed for Nausea and Vomiting (N/V). amoxicillin 2021-05 Yes [id number] 1{tbl} Take 1 Univers -clavulanat 2-01 [id number] tablet by i ty of e 875-125 00:00: mouth [place] mg per 00 every 12 Medical tablet (twelve) Branch hours. ondansetron 2021-05 Yes [id number] 4mg Take 1 Univers 4 mg 2- [id number] tablet by ity of disintegrat 00:00: mouth [place] ing tablet 00 every 8 Medica l (eight) Branch hours as needed for Nausea and Vomiting (N/V). amoxicillin 2021-05 Yes [id number] 1{tbl} Take 1 Univers -clavulanat 2-01 [id number] tablet by i ty of e 875-125 00:00: mouth [place] mg per 00 every 12 Medical tablet (twelve) Branch hours. ondansetron 2021-05 Yes [id number] 4mg Take 1 Univers 4 mg 2-01 [id number] tablet by ity of disintegrat 00:00: mouth [place] ing tablet 00 every 8 Medica l (eight) Branch hours as needed for Nausea and Vomiting (N/V). amoxicillin 2021-05 Yes [id number] 1{tbl} Take 1 Univers -clavulanat 2-01 [id number] tablet by i ty of e 875-125 00:00: mouth [place] mg per 00 every 12 Medical tablet (twelve) Branch hours. ondansetron 2021-05 Yes [id number] 4mg Take 1 Univers 4 mg 2- [id number] tablet by ity of disintegrat 00:00: mouth [place] ing tablet 00 every 8 Medica l (eight) Branch hours as needed for Nausea and Vomiting (N/V). amoxicillin 2021-05 Yes [id number] 1{tbl} Take 1 Univers -clavulanat 2-01 [id number] tablet by i ty of e 875-125 00:00: mouth [place] mg per 00 every 12 Medical tablet (twelve) Branch hours. ondansetron 2021-05 Yes [id number] 4mg Take 1 Univers 4 mg 2-01 [id number] tablet by ity of disintegrat 00:00: mouth [place] ing tablet 00 every 8 Medica l (eight) Branch hours as needed for Nausea and Vomiting (N/V). amoxicillin 2021-05 Yes [id number] 1{tbl} Take 1 Univers -clavulanat 2-01 [id number] tablet by i ty of e 875-125 00:00: mouth [place] mg per 00 every 12 Medical tablet (twelve) Branch hours. ondansetron 2021-05 Yes [id number] 4mg Take 1 Univers 4 mg 2-01 [id number] tablet by ity of disintegrat 00:00: mouth [place] ing tablet 00 every 8 Medica l (eight) Branch hours as needed for Nausea and Vomiting (N/V). zoster 2021-05- No [id number] .5mL 0.5 mL by Univers vaccine, 0-05 03-15 9104 Intramuscu ity of recombinant 00:00: 04:59 lar route [place] (SHINGRIX, 00 :00 once now Medic al PF,) for 1 Branch injection dose. And repeat in 2-6 months zoster 2021-05- No [id number] .5mL 0.5 mL by Univers vaccine, 0-05 03- 9104 Intramuscu ity of recombinant 00:00: 04:59 lar route [place] (SHINGRIX, 00 :00 once now Medic al PF,) for 1 Branch injection dose. And repeat in 2-6 months zoster 2021-05- No [id number] .5mL 0.5 mL by Univers vaccine, 0-05 [...] o f 1 mg tablet 19:28: at [place] [address] bedtime. Medical Branch traZODone 0 Yes 50mg Take 50 mg Un matt 100 mg 9-27 by mouth ity of tablet 19:28: at [place] [address] bedtime. Medical Branch hydralAZINE 2022-0 Yes 25mg [...] o f 1 mg tablet 19:28: at [place] [address] bedtime. Medical Branch traZODone 2021-0 Yes 50mg Take 50 mg Un matt 100 mg 9-27 by mouth ity of tablet 19:28: at [place] [address] bedtime. Medical Branch hydralAZINE 2021-0 Yes 25mg [...] 100 mg 04 (two) Medical tablet times [place] daily. amLODIPine 2021-0 Yes 10mg Take 10 mg U nivers (NORVASC) 9-27 by mouth ity of 10 mg 19:28: daily. [place] tablet 04 Medical Branch clonazePAM 2021-0 Yes 1mg Take 1 mg Un matt (KLONOPIN) 9-27 by mouth ity o f 1 mg tablet 19:28: at [place] [address] bedtime. Medical Branch traZODone 2-0 Yes 50mg Take 50 mg Un matt 100 mg 9-27 by mouth ity of tablet 19:28: at [place] [address] bedtime. Medical Branch hydralAZINE 2021-0 Yes 25mg [...] 100 mg 04 (two) Medical tablet times [place] daily. amLODIPine 2021-0 Yes 10mg Take 10 mg U nivers (NORVASC) 9-27 by mouth ity of 10 mg 19:28: daily. [place] tablet 04 Medical Branch clonazePAM 2021-0 Yes 1mg Take 1 mg Un matt (KLONOPIN) 9-27 by mouth ity o f 1 mg tablet 19:28: at [place] [address] bedtime. Medical Branch traZODone 2021-0 Yes 50mg Take 50 mg Un matt 100 mg 9-27 by mouth ity of tablet 19:28: at [place] [address] bedtime. Medical Branch hydralAZINE 2021-0 Yes 25mg [...] o f 1 mg tablet 19:28: at [place] [address] bedtime. Medical Branch traZODone 2022-0 Yes 50mg Take 50 mg Un matt 100 mg 9-27 by mouth ity of tablet 19:28: at [place] [address] bedtime. Medical Branch hydralAZINE 2-0 Yes 25mg [...] o f 1 mg tablet 19:28: at [place] [address] bedtime. Medical Branch traZODone 2-0 Yes 50mg Take 50 mg Un matt 100 mg 9-27 by mouth ity of tablet 19:28: at [place] [address] bedtime. Medical Branch hydralAZINE 2-0 Yes 25mg [...] o f 1 mg tablet 19:28: at [place] [address] bedtime. Medical Branch traZODone 2021-0 Yes 50mg Take 50 mg Un matt 100 mg 9-27 by mouth ity of tablet 19:28: at [place] [address] bedtime. Medical Branch hydralAZINE 2021-0 Yes 25mg [...] o f 1 mg tablet 19:28: at [place] [address] bedtime. Medical Branch traZODone 2021-0 Yes 50mg Take 50 mg Un matt 100 mg 9-27 by mouth ity of tablet 19:28: at [place] [address] bedtime. Medical Branch hydralAZINE 2021-0 Yes 25mg [...] o f 1 mg tablet 19:28: at [place] [address] bedtime. Medical Branch traZODone 2021-0 Yes 50mg Take 50 mg Un matt 100 mg 9-27 by mouth ity of tablet 19:28: at [place] [address] bedtime. Medical Branch hydralAZINE 2021-0 Yes 25mg [...] o f 1 mg tablet 19:28: at [place] [address] bedtime. Medical Branch traZODone 2021-0 Yes 50mg Take 50 mg Un matt 100 mg 9-27 by mouth ity of tablet 19:28: at [place] [address] bedtime. Medical Branch hydralAZINE 2021-0 Yes 25mg [...] o f 1 mg tablet 19:28: at [place] [address] bedtime. Medical Branch traZODone 2021-0 Yes 50mg Take 50 mg Un matt 100 mg 9-27 by mouth ity of tablet 19:28: at [place] [address] bedtime. Medical Branch hydralAZINE 2021-0 Yes 25mg [...] 100 mg 04 (two) Medical tablet times [place] daily. amLODIPine 2021-0 Yes 10mg Take 10 mg U nivers (NORVASC) 9-27 by mouth ity of 10 mg 19:28: daily. [place] tablet 04 Medical Branch clonazePAM 2021-0 Yes 1mg Take 1 mg Un matt (KLONOPIN) 9-27 by mouth ity o f 1 mg tablet 19:28: at [place] [address] bedtime. Medical Branch traZODone 2021-0 Yes 50mg Take 50 mg Un matt 100 mg 9-27 by mouth ity of tablet 19:28: at [place] [address] bedtime. Medical Branch hydralAZINE 2021-0 Yes 25mg [...] o f 1 mg tablet 19:28: at [place] [address] bedtime. Medical Branch traZODone 2021-0 Yes 50mg Take 50 mg Un matt 100 mg 9-27 by mouth ity of tablet 19:28: at [place] [address] bedtime. Medical Branch hydralAZINE 2021-0 Yes 25mg [...] 100 mg 04 (two) Medical tablet times [place] daily. amLODIPine 2-0 Yes 10mg Take 10 mg U nivers (NORVASC) 9-27 by mouth ity of 10 mg 19:28: daily. [place] tablet 04 Medical Branch clonazePAM 2021-0 Yes 1mg Take 1 mg Un matt (KLONOPIN) 9-27 by mouth ity o f 1 mg tablet 19:28: at [place] [address] bedtime. Medical Branch traZODone 2-0 Yes 50mg Take 50 mg Un matt 100 mg 9-27 by mouth ity of tablet 19:28: at [place] [address] bedtime. Medical Branch hydralAZINE 2-0 Yes 25mg [...] o f 1 mg tablet 19:28: at [place] [address] bedtime. Medical Branch traZODone 2021-0 Yes 50mg Take 50 mg Un matt 100 mg 9-27 by mouth ity of tablet 19:28: at [place] [address] bedtime. Medical Branch hydralAZINE 2021-0 Yes 25mg [...] o f 1 mg tablet 19:28: at [place] [address] bedtime. Medical Branch traZODone 2-0 Yes 50mg Take 50 mg Un matt 100 mg 9-27 by mouth ity of tablet 19:28: at [place] [address] bedtime. Medical Branch hydralAZINE 2022-0 Yes 25mg [...] o f 1 mg tablet 19:28: at [place] [address] bedtime. Medical Branch traZODone 2021-0 Yes 50mg Take 50 mg Un matt 100 mg 9-27 by mouth ity of tablet 19:28: at [place] [address] bedtime. Medical Branch hydralAZINE 2021-0 Yes 25mg [...] o f 1 mg tablet 19:28: at [place] [address] bedtime. Medical Branch traZODone 2-0 Yes 50mg Take 50 mg Un matt 100 mg 9-27 by mouth ity of tablet 19:28: at [place] [address] bedtime. Medical Branch hydralAZINE 2021-0 Yes 25mg [...] 100 mg 04 (two) Medical tablet times [place] daily. amLODIPine 2021-0 Yes 10mg Take 10 mg U nivers (NORVASC) 9-27 by mouth ity of 10 mg 19:28: daily. [place] tablet 04 Medical Branch clonazePAM 2021-0 Yes 1mg Take 1 mg Un matt (KLONOPIN) 9-27 by mouth ity o f 1 mg tablet 19:28: at [place] [address] bedtime. Medical Branch traZODone 2021-0 Yes 50mg Take 50 mg Un matt 100 mg 9-27 by mouth ity of tablet 19:28: at [place] [address] bedtime. Medical Branch hydralAZINE 2021-0 Yes 25mg [...] o f 1 mg tablet 19:28: at [place] [address] bedtime. Medical Branch traZODone Yes 50mg Take 50 mg Un matt 100 mg 02-16 by mouth ity of tablet 19:28: at [place] [address] bedtime. [facility] Branch cefpodoxime 2021- No [id number] 200mg Take 1 Univers 200 mg 02-16 tablet by ity of tablet 00:00: 04:59 mouth in [place] 00 :00 the [facility] morning Branch and 1 tablet in the evening. Do all this for 3 days. cefpodoxime 0 2021- No [id number] 200mg Take 1 Univers 200 mg 02-16 tablet by ity of tablet 00:00: 04:59 mouth in [place] 00 :00 the [facility] and 1 tablet in the evening. Do all this for 3 days. haloperidol 2021- No 2mg 2 mg, Slow Univers lactate 02-15 IV Push, ity of (HALDOL) 09:00: 09:12 ONCE, 1 [place] injection 2 00 :00 dose, On Medi porfirio mg [facility] 02/15/22 at 0400, Routine hydroCHLORO Yes 25mg 25 mg, Univ ers thiazide 9-25 Oral, ity of (ESIDRIX) 14:00: DAILY, [place] capsule 25 00 First dose Med ical mg on [place] Branch 02/14/22 at 0900, Until Discontinu ed, Routine butalbital- Yes 1{tbl} 1 tablet, Univers acetaminoph 02-13 Oral, ity of en-caff 18:46: Q6HPRN, [place] (ESGIC) 06 Starting Medical 50-325-40 on Sat [...] [place] EC tablet 00 First dose Medi porfiiro 40 mg on Tue Branch 02/12/22 at [...] First dose [place] mg 00 on [facility] 02/11/22 at Branch 1300, Until Discontinu ed, Routine raltegravir 0 Yes 400mg 400 mg, Un matt (ISENTRESS) 02-11 Oral, BID, it y of tablet 400 18:00: First dose [place] mg 00 on [facility] 02/11/22 at Branch 1300, Until Discontinu ed, JOE metoprolol 0 Yes 100mg 100 mg, Uni vers tartrate 02-11 Oral, BID, ity o f (LOPRESSOR) 18:00: First dose [place] tablet 100 00 on [facility] Medical mg 02/11/22 at Branch 1300, Until Discontinu ed, Routine lisinopriL 0 Yes 40mg 40 mg, Unive rs (PRINIVIL,Z 02-11 Oral, BID, it y of ESTRIL) 18:00: First [place] tablet 40 00 on [facility] Medical mg 02/11/22 at Branch 1300, Until Discontinu ed, Routine emtricitabi 0 Yes 1{tbl} 1 tablet, [facility] ne-tenofovi 02-11 Oral, ity of r alafen 18:00: DAILY, [place] (DESCOVY) 00 First dose Medi porfirio tablet 1 on [facility] tablet 02/11/22 at 1300, Until Discontinu ed, Routine ipratropium 0 Yes .5mg 0.5 mg, Uni vers (ATROVENT) 02-11 Inhalation ity of 0.02 % 17:57: , QIDPRN, [place] nebulizer 10 Starting Medica l solution on [facility] 0.5 mg 02/11/22 at 1257, Until Discontinu ed, Routine, Wheezing, Shortness of Breath amLODIPine 0 Yes 10mg 10 mg, Unive rs (NORVASC) 02-11 Oral, ity of tablet 10 17:30: DAILY, [place] mg 00 First dose Medical (after Branch last modificati on) on [facility] 02/11/22 at 1230, Until Discontinu ed, [...] Starting Medi porfirio tablet 1 on [facility] Branch tablet 02/11/22 at 0911, Until Tue02/12/22 at 1237, Routine, Pain (scale 7-10) melatonin Yes 3mg 3 mg, Univers (MELATIN) 02-11 Oral, ity of tablet 3 mg 14:08: QHSPRN, [place] 17 Starting Medical on [facility] Branch 02/11/22 at 0908, Until Discontinu ed, Routine, Insomnia acetaminoph 2021- No 1{tbl} 1 tablet, Univers en-codeine 02-11 Oral, ity of (TYLENOL 14:06: 17:37 Q6HPN, [place] #3) 300-30 19 :24 Starting Medic al mg tablet 1 on [facility] tablet 02/11/22 at 0906, Until Tue02/12/22 at 1237, Routine, Pain (scale 4-6) sennosides- Yes 1{tbl} 1 tablet, Univers docusate 02-11 Oral, ity of sodium 14:06: QDAILYPRN [place] (SENOKOT-S) 09 Starting Medi porfirio 8.6-50 mg on [facility] per tablet 02/11/22 at 1 tablet 0906, Until Discontinu ed, Routine, Constipati on ondansetron Yes 4mg 4 mg, Slow Univers (ZOFRAN 02-11 IV Push, ity of (PF)) 14:05: Q6HPRN, [place] injection 4 59 Starting Medi porfirio mg on [facility] Branch 02/11/22 at 0905, Until Discontinu ed, Routine, Nausea and Vomiting (N/V) acetaminoph Yes 650mg 650 mg, Un matt en 02-11 Oral, ity of (TYLENOL) 14:04: Q6HPRN, [place] tablet 650 37 Starting Medic al mg on [facility] Branch 02/11/22 at 0904, Until Discontinu [...] ity of ) 25 mg 09:10: daily. [address] Branch amLODIPine Yes 10mg Take 10 mg U nivers (NORVASC) 02-11 by mouth ity of 10 mg 09:10: daily. [address] Branch piperacilli 2021- No 3.375g 3.375 [...] of therapy: 72 hours iopamidol 2021- No [id number] 60mL 60 mL, Univers (ISOVUE 02-11 Intravenou [...] 02/11/22 at 0015, JOE emtricitabi 0 Yes [id number] Take one Univers ne-tenofovi 9-12 po daily ity of r alafen 00:00: [place] (DESCOVY) 00 Medical tablet Branch emtricitabi Yes [id number] Take one Univers ne-tenofovi 9-12 po daily ity of r alafen 00:00: [place] (DESCOVY) 00 Medical tablet Branch emtricitabi Yes [id number] Take one Univers ne-tenofovi 9-12 po daily ity of r alafen 00:00: [place] (DESCOVY) 00 Medical tablet Branch emtricitabi 0 Yes [id number] Take one Univers ne-tenofovi 9-12 po daily ity of r alafen 00:00: [place] (DESCOVY) 00 Medical tablet Branch emtricitabi Yes [id number] Take one Univers ne-tenofovi 9-12 po daily ity of r alafen 00:00: [place] (DESCOVY) 00 Medical tablet Branch emtricitabi Yes [id number] Take one Univers ne-tenofovi 9-12 po daily ity of r alafen 00:00: [place] (DESCOVY) 00 Medical tablet Branch emtricita Yes [id number] Take one Univers ne-tenofovi 9-12 po daily ity of r alafen 00:00: [place] (DESCOVY) 00 Medical tablet Branch emtricitabi Yes [id number] Take one Univers ne-tenofovi 9-12 po daily ity of r alafen 00:00: [place] (DESCOVY) 00 Medical tablet Branch emtricita Yes [id number] Take one Univers ne-tenofovi 9-12 po daily ity of r alafen 00:00: [place] (DESCOVY) 00 Medical tablet Branch emtricita Yes [id number] Take one Univers ne-tenofovi 9-12 po daily ity of r alafen 00:00: [place] (DESCOVY) 00 Medical tablet Branch emtricita Yes [id number] Take one Univers ne-tenofovi 9-12 po daily ity of r alafen 00:00: [place] (DESCOVY) 00 Medical tablet Branch emtricita Yes [id number] Take one Univers ne-tenofovi 9-12 po daily ity of r alafen 00:00: [place] (DESCOVY) 00 Medical tablet Branch emtricita Yes [id number] Take one Univers ne-tenofovi 9-12 po daily ity of r alafen 00:00: [place] (DESCOVY) 00 Medical tablet Branch emtricita Yes [id number] Take one Univers ne-tenofovi 9-12 po daily ity of r alafen 00:00: [place] (DESCOVY) 00 Medical tablet Branch emtricita Yes [id number] Take one Univers ne-tenofovi 9-12 po daily ity of r alafen 00:00: [place] (DESCOVY) 00 Medical tablet Branch emtricitabi Yes [id number] Take one Univers ne-tenofovi 9-12 po daily ity of r alafen 00:00: [place] (DESCOVY) 00 Medical tablet Branch emtricita Yes [id number] Take one Univers ne-tenofovi 9-12 po daily ity of r alafen 00:00: [place] (DESCOVY) 00 Medical tablet Branch emtricitabi 2021-0 3- No [id number] Take one Univers ne-tenofovi 02-01 po daily ity of r alafen 00:00: 00:00 [place] (DESCOVY) 00 :00 Medical tablet Branch emtricitabi 2021-0 3- No [id number] Take one Univers ne-tenofovi 02-01 po daily ity of r alafen 00:00: 00:00 [place] (DESCOVY) 00 :00 Medical tablet Branch naproxen 2021-0 Yes [id number] 500mg Take 1 U nivers (NAPROSYN) 7-24 tablet by ity of 500 mg 00:00: mouth in [place] tablet 00 the Medical morning Branch and 1 tablet in the evening. Take with meals. methocarbam 2021-0 Yes [id number] 500mg Take 1 Univers oL 500 mg 7-24 tablet by ity o f tablet 00:00: mouth 4 [place] ([facility]) Medical times [place] daily. naproxen 2021-0 Yes [id number] 500mg Take 1 U nivers (NAPROSYN) 7-24 tablet by ity of 500 mg 00:00: mouth in [place] tablet 00 the Medical morning Branch and 1 tablet in the evening. Take with meals. methocarbam 2-0 Yes [id number] 500mg Take 1 Univers oL 500 mg 7-24 tablet by ity o f tablet 00:00: mouth 4 [place] ([facility]) Medical times Branch daily. naproxen 2-0 Yes [id number] 500mg Take 1 U nivers (NAPROSYN) 7-24 tablet by ity of 500 mg 00:00: mouth in [place] tablet 00 the Medical morning Branch and 1 tablet in the evening. Take with meals. methocarbam 2-0 Yes [id number] 500mg Take 1 Univers oL 500 mg 7-24 tablet by ity o f tablet 00:00: mouth 4 [place] ([facility]) Medical times [place] daily. naproxen 2-0 2022- No [id number] 500mg Take 1 Univers (NAPROSYN) 7-24 10-14 tablet by ity of 500 mg 00:00: 00:00 mouth in [place] tablet 00 :00 the Medical morning Branch and 1 tablet in the evening. Take with meals. methocarbam 2021- No [id number] 500mg Take 1 Univers oL 500 mg 12-13-14 tablet by ity of tablet 00:00: 00:00 mouth 4 [place] 00 :00 (four) Medical times [place] daily. naproxen 2021- No [id number] 500mg Take 1 Univers (NAPROSYN) 12-13 10-14 tablet by ity of 500 mg 00:00: 00:00 mouth in [place] tablet 00 :00 the Medical morning Branch and 1 tablet in the evening. Take with meals. methocarbam 2021- No [id number] 500mg Take 1 Univers oL 500 mg 12-13-14 tablet by ity of tablet 00:00: 00:00 mouth 4 [place] 00 :00 (four) Medical times [place] daily. esomeprazol 2021- No 40mg Take 40 mg Univers e (NEXIUM) 11-20 by mouth 2 it y of 40 mg 09:12: 00:00 (two) [place] capsule 03 :00 times Medical daily. Branch amiodarone 2021- No 100mg Take 100 U nivers 100 mg 11-20 mg by ity of tablet 09:11: 00:00 mouth [place] 57 :00 daily. Medical Branch apixaban 2021- No 5mg Take 5 mg Uni vers (ELIQUIS) 5 11-20 by mouth 2 i ty of mg tablet 09:11: 00:00 (two) [place] 35 :00 times Medical daily. Branch traZODONE 2021- No Take by [facility] ers (DESYREL) 11-20 mouth at ity o f 10 mg/mL 09:10: 00:00 bedtime. [place] oral 28 :00 Medical suspension Branch hydralAZINE Yes 25mg Take 25 mg Univers (APRESOLINE 11-20 by mouth ity of ) 25 mg 08:47: daily. [place] tablet 47 Medical Branch cephALEXin 2021- No [id number] 500mg Take 1 Univers (KEFLEX) 10-24 capsule by ity of 500 mg 00:00: 00:00 mouth 4 [place] capsule 00 :00 (four) Medical times [place] daily. acetaminoph 2021- No 4647 1{tbl} Take 1 U nivers en-codeine 6-08 27- tablet by ity of (TYLENOL-CO 00:00: 00:00 mouth [place] DEINE #3) 00 :00 every 4 Medical 300-30 mg (four) Branch tablet hours as needed for Pain (scale 7-10). Indication s: acute pain buPROPion 2021-0 Yes [id number] 150mg Take 1 U nivers XL 4-12 tablet by ity of (WELLBUTRIN 00:00: mouth [place] XL) 150 mg 00 daily. Medical 24 hr Branch tablet busPIRone 2021-0 Yes [id number] 30mg Take 1 Un matt 30 mg 4-12 tablet by ity of tablet 00:00: mouth 2 [place] 00 (two) Medical times Branch daily. SERTraline Yes [id number] 200mg Take 2 Univers 100 mg 4-12 tablets by ity of tablet 00:00: mouth [place] 00 daily. Medical Branch buPROPion 0 Yes [id number] 150mg Take 1 U nivers XL 4-12 tablet by ity of (WELLBUTRIN 00:00: mouth [place] XL) 150 mg 00 daily. Medical 24 hr Branch tablet busPIRone 2021-0 Yes [id number] 30mg Take 1 Un matt 30 mg 4-12 tablet by ity of tablet 00:00: mouth 2 [place] 00 (two) Medical times Branch daily. SERTraline 2021-0 Yes [id number] 200mg Take 2 Univers 100 mg 4-12 tablets by ity of tablet 00:00: mouth [place] 00 daily. Medical Branch buPROPion 0 Yes [id number] 150mg Take 1 U nivers XL 4-12 tablet by ity of (WELLBUTRIN 00:00: mouth [place] XL) 150 mg 00 daily. Medical 24 hr Branch tablet busPIRone 2021-0 Yes [id number] 30mg Take 1 Un matt 30 mg 4-12 tablet by ity of tablet 00:00: mouth 2 [place] 00 (two) Medical times Branch daily. SERTraline 2021-0 Yes [id number] 200mg Take 2 Univers 100 mg 4-12 tablets by ity of tablet 00:00: mouth [place] 00 daily. Medical Branch buPROPion 2021-0 Yes [id number] 150mg Take 1 U nivers XL 4-12 tablet by ity of (WELLBUTRIN 00:00: mouth [place] XL) 150 mg 00 daily. Medical 24 hr Branch tablet busPIRone 2021-0 Yes [id number] 30mg Take 1 Un matt 30 mg 4-12 tablet by ity of tablet 00:00: mouth 2 (two) Medical times Branch daily. SERTraline 2021-0 Yes [id number] 200mg Take 2 Univers 100 mg 4-12 tablets by ity of tablet 00:00: mouth [place] 00 daily. Medical Branch buPROPion 2021-0 Yes [id number] 150mg Take 1 U nivers XL 4-12 tablet by ity of (WELLBUTRIN 00:00: mouth [place] XL) 150 mg 00 daily. Medical 24 hr Branch tablet busPIRone 2021-0 Yes [id number] 30mg Take 1 Un matt 30 mg 4-12 tablet by ity of tablet 00:00: mouth 2 (two) Medical times Branch daily. SERTraline 2021-0 Yes [id number] 200mg Take 2 Univers 100 mg 4-12 tablets by ity of tablet 00:00: mouth [place] 00 daily. Medical Branch buPROPion 2021-0 Yes [id number] 150mg Take 1 U nivers XL 4-12 tablet by ity of (WELLBUTRIN 00:00: mouth [place] XL) 150 mg 00 daily. Medical 24 hr Branch tablet busPIRone 2021-0 Yes [id number] 30mg Take 1 Un matt 30 mg 4-12 tablet by ity of tablet 00:00: mouth 2 (two) Medical times Branch daily. SERTraline 2021-0 Yes [id number] 200mg Take 2 Univers 100 mg 4-12 tablets by ity of tablet 00:00: mouth [place] 00 daily. Medical Branch buPROPion 2021-0 Yes [id number] 150mg Take 1 U nivers XL 4-12 tablet by ity of (WELLBUTRIN 00:00: mouth [place] XL) 150 mg 00 daily. Medical 24 hr Branch tablet busPIRone 2021-0 Yes [id number] 30mg Take 1 Un matt 30 mg 4-12 tablet by ity of tablet 00:00: mouth 2 (two) Medical times Branch daily. SERTraline 2021-0 Yes [id number] 200mg Take 2 Univers 100 mg 4-12 tablets by ity of tablet 00:00: mouth [place] 00 daily. Medical Branch buPROPion 2021-0 Yes [id number] 150mg Take 1 U nivers XL 4-12 tablet by ity of (WELLBUTRIN 00:00: mouth [place] XL) 150 mg 00 daily. Medical 24 hr Branch tablet busPIRone 2021-0 Yes [id number] 30mg Take 1 Un matt 30 mg 4-12 tablet by ity of tablet 00:00: mouth 2 [place] 00 (two) Medical times Branch daily. SERTraline 2021-0 Yes [id number] 200mg Take 2 Univers 100 mg 4-12 tablets by ity of tablet 00:00: mouth [place] 00 daily. Medical Branch buPROPion 0 Yes [id number] 150mg Take 1 U nivers XL 4-12 tablet by ity of (WELLBUTRIN 00:00: mouth [place] XL) 150 mg 00 daily. Medical 24 hr Branch tablet busPIRone 2021-0 Yes [id number] 30mg Take 1 Un matt 30 mg 4-12 tablet by ity of tablet 00:00: mouth 2 [place] 00 (two) Medical times Branch daily. SERTraline 2021-0 Yes [id number] 200mg Take 2 Univers 100 mg 4-12 tablets by ity of tablet 00:00: mouth [place] 00 daily. Medical Branch buPROPion 2021-0 Yes [id number] 150mg Take 1 U nivers XL 4-12 tablet by ity of (WELLBUTRIN 00:00: mouth [place] XL) 150 mg 00 daily. Medical 24 hr Branch tablet busPIRone 2021-0 Yes [id number] 30mg Take 1 Un matt 30 mg 4-12 tablet by ity of tablet 00:00: mouth 2 [place] 00 (two) Medical times Branch daily. SERTraline 2021-0 Yes [id number] 200mg Take 2 Univers 100 mg 4-12 tablets by ity of tablet 00:00: mouth [place] 00 daily. Medical Branch buPROPion 2021-0 Yes [id number] 150mg Take 1 U nivers XL 4-12 tablet by ity of (WELLBUTRIN 00:00: mouth [place] XL) 150 mg 00 daily. Medical 24 hr Branch tablet busPIRone 2021-0 Yes [id number] 30mg Take 1 Un matt 30 mg 4-12 tablet by ity of tablet 00:00: mouth 2 [place] 00 (two) Medical times Branch daily. SERTraline 2021-0 Yes [id number] 200mg Take 2 Univers 100 mg 4-12 tablets by ity of tablet 00:00: mouth [place] 00 daily. Medical Branch buPROPion 2021-0 Yes [id number] 150mg Take 1 U nivers XL 4-12 tablet by ity of (WELLBUTRIN 00:00: mouth [place] XL) 150 mg 00 daily. Medical 24 hr Branch tablet busPIRone 2021-0 Yes [id number] 30mg Take 1 Un matt 30 mg 4-12 tablet by ity of tablet 00:00: mouth 2 [place] 00 (two) Medical times Branch daily. SERTraline 2021-0 Yes [id number] 200mg Take 2 Univers 100 mg 4-12 tablets by ity of tablet 00:00: mouth [place] 00 daily. Medical Branch buPROPion 2021-0 Yes [id number] 150mg Take 1 U nivers XL 4-12 tablet by ity of (WELLBUTRIN 00:00: mouth [place] XL) 150 mg 00 daily. Medical 24 hr Branch tablet busPIRone 2021-0 Yes [id number] 30mg Take 1 Un matt 30 mg 4-12 tablet by ity of tablet 00:00: mouth 2 [place] 00 (two) Medical times Branch daily. SERTraline 2021-0 Yes [id number] 200mg Take 2 Univers 100 mg 4-12 tablets by ity of tablet 00:00: mouth [place] 00 daily. Medical Branch buPROPion 2021-0 Yes [id number] 150mg Take 1 U nivers XL 4-12 tablet by ity of (WELLBUTRIN 00:00: mouth [place] XL) 150 mg 00 daily. Medical 24 hr Branch tablet busPIRone 2021-0 Yes [id number] 30mg Take 1 Un matt 30 mg 4-12 tablet by ity of tablet 00:00: mouth 2 [place] 00 (two) Medical times Branch daily. SERTraline 2021-0 Yes [id number] 200mg Take 2 Univers 100 mg 4-12 tablets by ity of tablet 00:00: mouth [place] 00 daily. Medical Branch buPROPion 2021-0 Yes [id number] 150mg Take 1 U nivers XL 4-12 tablet by ity of (WELLBUTRIN 00:00: mouth [place] XL) 150 mg 00 daily. Medical 24 hr Branch tablet busPIRone 2021-0 Yes [id number] 30mg Take 1 Un matt 30 mg 4-12 tablet by ity of tablet 00:00: mouth 2 00 (two) Medical times Branch daily. SERTraline 2021-0 Yes [id number] 200mg Take 2 Univers 100 mg 4-12 tablets by ity of tablet 00:00: mouth [place] 00 daily. Medical Branch buPROPion 2021-0 Yes [id number] 150mg Take 1 U nivers XL 4-12 tablet by ity of (WELLBUTRIN 00:00: mouth [place] XL) 150 mg 00 daily. Medical 24 hr Branch tablet busPIRone 2021-0 Yes [id number] 30mg Take 1 Un matt 30 mg 4-12 tablet by ity of tablet 00:00: mouth 2 (two) Medical times Branch daily. SERTraline 2021-0 Yes [id number] 200mg Take 2 Univers 100 mg 4-12 tablets by ity of tablet 00:00: mouth [place] 00 daily. Medical Branch buPROPion 2021-0 Yes [id number] 150mg Take 1 U nivers XL 4-12 tablet by ity of (WELLBUTRIN 00:00: mouth [place] XL) 150 mg 00 daily. Medical 24 hr Branch tablet busPIRone 2021-0 Yes [id number] 30mg Take 1 Un matt 30 mg 4-12 tablet by ity of tablet 00:00: mouth 2 00 (two) Medical times Branch daily. SERTraline 2021-0 Yes [id number] 200mg Take 2 Univers 100 mg 4-12 tablets by ity of tablet 00:00: mouth [place] 00 daily. Medical Branch buPROPion 2021-0 Yes [id number] 150mg Take 1 U nivers XL 4-12 tablet by ity of (WELLBUTRIN 00:00: mouth [place] XL) 150 mg 00 daily. Medical 24 hr Branch tablet busPIRone 2021-0 Yes [id number] 30mg Take 1 Un matt 30 mg 4-12 tablet by ity of tablet 00:00: mouth 2 00 (two) Medical times Branch daily. SERTraline 2021-0 Yes [id number] 200mg Take 2 Univers 100 mg 4-12 tablets by ity of tablet 00:00: mouth [place] 00 daily. Medical Branch buPROPion 2021-0 Yes [id number] 150mg Take 1 U nivers XL 4-12 tablet by ity of (WELLBUTRIN 00:00: mouth [place] XL) 150 mg 00 daily. Medical 24 hr Branch tablet busPIRone 2021-0 Yes [id number] 30mg Take 1 Un matt 30 mg 4-12 tablet by ity of tablet 00:00: mouth 2 [place] 00 (two) Medical times Branch daily. SERTraline 0 Yes [id number] 200mg Take 2 Univers 100 mg 4-12 tablets by ity of tablet 00:00: mouth [place] 00 daily. Medical Branch buPROPion 0 Yes [id number] 150mg Take 1 U nivers XL 4-12 tablet by ity of (WELLBUTRIN 00:00: mouth [place] XL) 150 mg 00 daily. Medical 24 hr Branch tablet busPIRone 2021-0 Yes [id number] 30mg Take 1 Un matt 30 mg 4-12 tablet by ity of tablet 00:00: mouth 2 [place] 00 (two) Medical times Branch daily. SERTraline 2021-0 Yes [id number] 200mg Take 2 Univers 100 mg 4-12 tablets by ity of tablet 00:00: mouth [place] 00 daily. Medical Branch buPROPion 2021-0 Yes [id number] 150mg Take 1 U nivers XL 4-12 tablet by ity of (WELLBUTRIN 00:00: mouth [place] XL) 150 mg 00 daily. Medical 24 hr Branch tablet busPIRone 2021-0 Yes [id number] 30mg Take 1 Un matt 30 mg 4-12 tablet by ity of tablet 00:00: mouth 2 [place] 00 (two) Medical times Branch daily. SERTraline 2021-0 Yes [id number] 200mg Take 2 Univers 100 mg 4-12 tablets by ity of tablet 00:00: mouth [place] 00 daily. Medical Branch buPROPion 2021-0 Yes [id number] 150mg Take 1 U nivers XL 4-12 tablet by ity of (WELLBUTRIN 00:00: mouth [place] XL) 150 mg 00 daily. Medical 24 hr Branch tablet busPIRone 2021-0 Yes [id number] 30mg Take 1 Un matt 30 mg 4-12 tablet by ity of tablet 00:00: mouth 2 [place] 00 (two) Medical times Branch daily. SERTraline 2021-0 Yes [id number] 200mg Take 2 Univers 100 mg 4-12 tablets by ity of tablet 00:00: mouth [place] 00 daily. Medical Branch raltegravir 2021-0 Yes [id number] 400mg Take 1 Univers (ISENTRESS) 3-28 tablet by ity of 400 mg 00:00: mouth 2 [place] tablet 00 (two) Medical times Branch daily. raltegravir 2021-0 Yes [id number] 400mg Take 1 [facility] ([facility]TRESS) 3-28 tablet by ity of 400 mg 00:00: mouth 2 [place] tablet 00 (two) Medical times Branch daily. raltegravir 2021-0 Yes [id number] 400mg Take 1 [facility] (ISENTRESS) 3-28 tablet by ity of 400 mg 00:00: mouth 2 [place] tablet 00 (two) Medical times Branch daily. raltegravir 2021-0 Yes [id number] 400mg Take 1 [facility] (ISENTRESS) 3-28 tablet by ity of 400 mg 00:00: mouth 2 [place] tablet 00 (two) Medical times Branch daily. raltegravir 2021-0 Yes [id number] 400mg Take 1 [facility] (ISENTRESS) 3-28 tablet by ity of 400 mg 00:00: mouth 2 [place] tablet 00 (two) Medical times Branch daily. raltegravir 2021-0 Yes [id number] 400mg Take 1 [facility] (ISENTRESS) 3-28 tablet by ity of 400 mg 00:00: mouth 2 [place] tablet 00 (two) Medical times Branch daily. raltegravir 2021-0 Yes [id number] 400mg Take 1 [facility] (ISENTRESS) 3-28 tablet by ity of 400 mg 00:00: mouth 2 [place] tablet 00 (two) Medical times Branch daily. raltegravir 202-0 Yes [id number] 400mg Take 1 [facility] (ISENTRESS) 3-28 tablet by ity of 400 mg 00:00: mouth 2 [place] tablet 00 (two) Medical times Branch daily. raltegravir 2021-0 Yes [id number] 400mg Take 1 [facility] (ISENTRESS) 3-28 tablet by ity of 400 mg 00:00: mouth 2 [place] tablet 00 (two) Medical times Branch daily. raltegravir 2022-0 Yes [id number] 400mg Take 1 [facility] (ISENTRESS) 3-28 tablet by ity of 400 mg 00:00: mouth 2 [place] tablet 00 (two) Medical times Branch daily. raltegravir 2022-0 Yes [id number] 400mg Take 1 [facility] (ISENTRESS) 3-28 tablet by ity of 400 mg 00:00: mouth 2 [place] tablet 00 (two) Medical times Branch daily. raltegravir 2022-0 Yes [id number] 400mg Take 1 [facility] (ISENTRESS) 3-28 tablet by ity of 400 mg 00:00: mouth 2 [place] tablet 00 (two) Medical times Branch daily. raltegravir 2-0 Yes [id number] 400mg Take 1 [facility] (ISENTRESS) 3-28 tablet by ity of 400 mg 00:00: mouth 2 [place] tablet 00 (two) Medical times Branch daily. raltegravir 2-0 Yes [id number] 400mg Take 1 [facility] (ISENTRESS) 3-28 tablet by ity of 400 mg 00:00: mouth 2 [place] tablet 00 (two) Medical times Branch daily. raltegravir 2-0 Yes [id number] 400mg Take 1 [facility] (ISENTRESS) 3-28 tablet by ity of 400 mg 00:00: mouth 2 [place] tablet 00 (two) Medical times Branch daily. raltegravir 2-0 Yes [id number] 400mg Take 1 [facility] (ISENTRESS) 3-28 tablet by ity of 400 mg 00:00: mouth 2 [place] tablet 00 (two) Medical times Branch daily. raltegravir 2-0 Yes [id number] 400mg Take 1 [facility] (ISENTRESS) 3-28 tablet by ity of 400 mg 00:00: mouth 2 [place] tablet 00 (two) Medical times Branch daily. raltegravir 2022-0 Yes [id number] 400mg Take 1 [facility] (ISENTRESS) 3-28 tablet by ity of 400 mg 00:00: mouth 2 [place] tablet 00 (two) Medical times Branch daily. raltegravir 2022-0 Yes [id number] 400mg Take 1 [facility] (ISENTRESS) 3-28 tablet by ity of 400 mg 00:00: mouth 2 [place] tablet 00 (two) Medical times Branch daily. raltegravir 2022-0 Yes [id number] 400mg Take 1 [facility] (ISENTRESS) 3-28 tablet by ity of 400 mg 00:00: mouth 2 [place] tablet 00 (two) Medical times Branch daily. raltegravir 2022- No [id number] 400mg Take 1 [facility] (ISENTRESS) 3-28 05-08 tablet by it y of 400 mg 00:00: 00:00 mouth 2 [place] tablet 00 :00 (two) Medical times Branch daily. LORazepam 1 2021- No [id number] 1mg Take 1 [facility] mg tablet 3- [...] times a tablet day. emtricitabi 2021- No [id number] Take one [facility] ne-tenofovi 1-20 09-12 po daily ity of r alafen 00:00: 00:00 [place] (DESCOVY) 00 :00 Medical tablet Branch metoprolol Yes [id number] Take 1 [facility] tartrate 7-26 tablet [facility] (Lopressor) 00:00: (100 mg 100 MG 00 total) by tablet mouth 2 (two) times a day AND 0.5 tablets (50 mg total) every night. metoprolol Yes [id number] Take 1 [facility] tartrate 7-[facility] [...] (affected area in groin) hydrALAZINE Yes 50mg Q.[id number] Take 50 mg [facility] (APRESOLINE 7-19 [id number] by mouth 3 st ) 50 MG [...] area in groin) hydrALAZINE 0 Yes 50mg Q.[id number] Take 50 mg [facility] (APRESOLINE 7-19 [id number] mouth 3 [facility] ) 50 MG [...] area in groin) hydrALAZINE 0 Yes 50mg Q.[id number] Take 50 mg [facility] (APRESOLINE 7-19 [id number] [address] mouth 3 st ) 50 MG [...] (affected area in groin) hydrALAZINE Yes 50mg Q.[id number] Take 50 mg [facility] (APRESOLINE 7-19 [id number] [address] mouth 3 [facility] ) 50 MG [...] area in groin) hydrALAZINE 0 Yes 50mg Q.[id number] Take 50 mg [facility] (APRESOLINE 7-19 [id number] [address] mouth 3 st ) 50 MG [...] (affected area in groin) hydrALAZINE Yes 50mg Q.[id number] Take 50 mg [facility] (APRESOLINE 7-19 [id number] [address] mouth 3 [address] ) 50 MG [...] (affected area in groin) hydrALAZINE Yes 50mg Q.[id number] Take 50 mg [facility] (APRESOLINE 7-19 [id number] [address] mouth 3 [address] ) 50 MG [...] (affected area in groin) hydrALAZINE Yes 50mg Q.[id number] Take 50 mg [facility] (APRESOLINE 7-19 [id number] mouth 3 [address] ) 50 MG [...] area in groin) hydrALAZINE 0 Yes 50mg Q.[id number] Take 50 mg [facility] (APRESOLINE 7-19 [id number] mouth 3 [address] ) 50 MG [...] area in groin) hydrALAZINE 0 Yes 50mg Q.[id number] Take 50 mg [facility] (APRESOLINE 7-19 [id number] [address] mouth 3 [address] ) 50 MG [...] (affected area in groin) hydrALAZINE Yes 50mg Q.[id number] Take 50 mg [facility] (APRESOLINE - [id number] by mouth 3 st ) 50 MG [...] area in groin) hydrALAZINE 0 Yes 50mg Q.[id number] Take 50 mg [facility] (APRESOLINE -19 [id number] by mouth 3 st ) 50 MG [...] area in groin) hydrALAZINE 0 Yes 50mg Q.[id number] Take 50 mg [facility] (APRESOLINE 7-19 [id number] [address] mouth 3 st ) 50 MG [...] (affected area in groin) hydrALAZINE Yes 50mg Q.[id number] Take 50 mg [facility] (APRESOLINE 7-19 [id number] mouth 3 [address] ) 50 MG [...] area in groin) hydrALAZINE 0 Yes 50mg Q.[id number] Take 50 mg [facility] (APRESOLINE - [id number] by mouth 3 st ) 50 MG [...] area in groin) hydrALAZINE 0 Yes 50mg Q.[id number] Take 50 mg [facility] (APRESOLINE 7-19 [id number] by mouth 3 [facility] ) 50 MG [...] area in groin) hydrALAZINE 0 Yes 50mg Q.65001406 Take 50 mg [facility] (APRESOLINE 7-19 [id number] [address] mouth 3 [facility] ) 50 MG [...] (affected area in groin) hydrALAZINE Yes 50mg Q.[id number] Take 50 mg [facility] (APRESOLINE 7-19 [id number] [address] mouth 3 [address] ) 50 MG [...] area in groin) hydrALAZINE 2020-0 Yes 50mg Q.[id number] Take 50 mg [facility] (APRESOLINE 7-19 [id number] mouth 3 [address] ) 50 MG [...] area in groin) hydrALAZINE 0 Yes 50mg Q.[id number] Take 50 mg [facility] (APRESOLINE 7-19 [id number] mouth 3 [address] ) 50 MG [...] (affected area in groin) hydrALAZINE Yes 50mg Q.[id number] Take 50 mg [facility] (APRESOLINE 7-[id number] mouth [address] ) 50 MG [...] area in groin) hydrALAZINE 0 Yes 50mg Q.[id number] Take 50 mg [facility] (APRESOLINE 7-19 [id number] [address] mouth 3 [address] ) 50 MG [...] area in groin) hydrALAZINE 2021-0 Yes 50mg Q.[id number] Take 50 mg [facility] (APRESOLINE 7-19 [id number] mouth 3 [address] ) 50 MG [...] (affected area in groin) hydrALAZINE Yes 50mg Q.[id number] Take 50 mg [facility] (APRESOLINE 7-19 [id number] [address] mouth 3 [address] ) 50 MG [...] area in groin) hydrALAZINE 0 Yes 50mg Q.[id number] Take 50 mg [facility] (APRESOLINE 7-19 [id number] [address] mouth 3 [facility] ) 50 MG [...] area in groin) hydrALAZINE 0 Yes 50mg Q.[id number] Take 50 mg [facility] (APRESOLINE 7-19 [id number] [address] mouth 3 [address] ) 50 MG [...] (affected area in groin) hydrALAZINE Yes 50mg Q.[id number] Take 50 mg [facility] (APRESOLINE 7-19 [id number] [address] mouth 3 [address] ) 50 MG [...] (affected area in groin) hydrALAZINE Yes 50mg Q.30302935 Take 50 mg [facility] (APRESOLINE 7-19 [id number] mouth 3 [address] ) 50 MG [...] area in groin) hydrALAZINE 0 Yes 50mg Q.54191807 Take 50 mg [facility] (APRESOLINE 7-19 [id number] [address] mouth 3 [address] ) 50 MG [...] area in groin) hydrALAZINE 0 Yes 50mg Q.[id number] Take 50 mg [facility] (APRESOLINE 7-19 [id number] [address] mouth 3 [address] ) 50 MG [...] (affected area in groin) hydrALAZINE Yes 50mg Q.[id number] Take 50 mg [facility] (APRESOLINE 7-19 [id number] mouth 3 [address] ) 50 MG [...] (affected area in groin) hydrALAZINE Yes 50mg Q.[id number] Take 50 mg [facility] (APRESOLINE 7-19 [id number] [address] mouth 3 [address] ) 50 MG [...] area in groin) hydrALAZINE 0 Yes 50mg Q.[id number] Take 50 mg [facility] (APRESOLINE 7-19 [id number] [address] mouth 3 [address] ) 50 MG [...] (affected area in groin) hydrALAZINE Yes 50mg Q.[id number] Take 50 mg [facility] (APRESOLINE 7-19 [id number] [address] mouth 3 [address] ) 50 MG [...] (affected area in groin) hydrALAZINE Yes 50mg Q.[id number] Take 50 mg [facility] (APRESOLINE 7-19 [id number] mouth 3 [address] ) 50 MG [...] area in groin) hydrALAZINE 0 Yes 50mg Q.[id number] Take 50 mg [facility] (APRESOLINE 7-19 [id number] mouth 3 [address] ) 50 MG [...] (affected area in groin) hydrALAZINE Yes 50mg Q.[id number] Take 50 mg [facility] (APRESOLINE 7-19 [id number] mouth 3 [address] ) 50 MG [...] (affected area in groin) hydrALAZINE Yes 50mg Q.[id number] Take 50 mg [facility] (APRESOLINE 7-19 [id number] [address] mouth 3 [address] ) 50 MG [...] (affected area in groin) hydrALAZINE Yes 50mg Q.[id number] Take 50 mg [facility] (APRESOLINE 7-19 [id number] by mouth 3 [address] ) 50 MG [...] area in groin) hydrALAZINE 0 Yes 50mg Q.[id number] Take 50 mg [facility] (APRESOLINE 7-[id number] mouth 3 [address] ) 50 MG [...] (affected area in groin) hydrALAZINE Yes 50mg Q.[id number] Take 50 mg [facility] (APRESOLINE 7-[id number] mouth 3 [address] ) 50 MG [...] area in groin) hydrALAZINE 0 Yes 50mg Q.38162851 Take 50 mg [facility] (APRESOLINE 7-19 [id number] [address] mouth 3 [address] ) 50 MG [...] area in groin) hydrALAZINE 0 Yes 50mg Q.30521508 Take 50 mg [facility] (APRESOLINE 7-19 [id number] mouth 3 [address] ) 50 MG [...] (affected area in groin) hydrALAZINE Yes 50mg Q.[id number] Take 50 mg [facility] (APRESOLINE 7-19 [id number] mouth 3 [address] ) 50 MG [...] area in groin) hydrALAZINE 0 Yes 50mg Q.[id number] Take 50 mg [facility] (APRESOLINE 7-19 [id number] [address] mouth 3 [address] ) 50 MG [...] area in groin) hydrALAZINE 0 Yes 50mg Q.[id number] Take 50 mg [facility] (APRESOLINE 7-[id number] mouth [address] ) 50 MG [...] (affected area in groin) hydrALAZINE Yes 50mg Q.[id number] Take 50 mg [facility] (APRESOLINE 7-[id number] mouth 3 [address] ) 50 MG [...] area in groin) hydrALAZINE 0 Yes 50mg Q.[id number] Take 50 mg [facility] (APRESOLINE 7-19 [id number] mouth 3 [address] ) 50 MG [...] area in groin) hydrALAZINE 0 Yes 50mg Q.[id number] Take 50 mg [facility] (APRESOLINE 7-[id number] mouth 3 [address] ) 50 MG [...] (affected area in groin) hydrALAZINE Yes 50mg Q.[id number] Take 50 mg [facility] (APRESOLINE 7-[id number] mouth 3 [address] ) 50 MG [...] (affected area in groin) hydrALAZINE Yes 50mg Q.[id number] Take 50 mg [facility] (APRESOLINE 7-[id number] mouth [address] ) 50 MG [...] area in groin) hydrALAZINE 0 Yes 50mg Q.[id number] Take 50 mg [facility] (APRESOLINE 7-[id number] mouth [address] ) 50 MG [...] [facility] 25 l nystatin-tr 2020-0 Yes [id number] Apply to [facility] 11-25 area(s) 3 ity of cream 00:00: (three) [place] 00 times Medical daily. Branch nystatin-tr 2020-0 Yes [id number] Apply to [facility] 7- area(s) 3 ity of cream 00:00: (three) [place] 00 times Medical daily. Branch nystatin-tr 2021-0 Yes [id number] Apply to [facility] iamcinolone 7-06 area(s) 3 ity of cream 00:00: (three) [place] 00 times Medical daily. Branch nystatin-tr 2021-0 Yes [id number] Apply to [facility] iamcinolone 7-06 area(s) 3 ity of cream 00:00: (three) [place] 00 times Medical daily. Branch nystatin-tr 2021-0 Yes [id number] Apply to [facility] iamcinolone 7-06 area(s) 3 ity of cream 00:00: (three) [place] 00 times Medical daily. Branch nystatin-tr 2021-0 Yes [id number] Apply to [facility] iamcinolone 7-06 area(s) 3 ity of cream 00:00: (three) [place] 00 times Medical daily. Branch nystatin-tr 2021-0 Yes [id number] Apply to [facility] iamcinolone 7-06 area(s) 3 ity of cream 00:00: (three) [place] 00 times Medical daily. Branch nystatin-tr 2021-0 Yes [id number] Apply to [facility] iamcinolone 7-06 area(s) 3 ity of cream 00:00: (three) [place] 00 times Medical daily. Branch nystatin-tr 2021-0 Yes [id number] Apply to [facility] iamcinolone 7-06 area(s) 3 ity of cream 00:00: (three) [place] 00 times Medical daily. Branch nystatin-tr 2021-0 Yes [id number] Apply to [facility] iamcinolone 7-06 area(s) 3 ity of cream 00:00: (three) [place] 00 times Medical daily. Branch nystatin-tr 2021-0 Yes [id number] Apply to [facility] iamcinolone 7-06 area(s) 3 ity of cream 00:00: (three) [place] 00 times Medical daily. Branch nystatin-tr 2021-0 Yes [id number] Apply to [facility] iamcinolone 7-06 area(s) 3 ity of cream 00:00: (three) [place] 00 times Medical daily. Branch nystatin-tr 2021-0 Yes [id number] Apply to [facility] iamcinolone 7-06 area(s) 3 ity of cream 00:00: (three) [place] 00 times Medical daily. Branch nystatin-tr 2021-0 Yes [id number] Apply to [facility] iamcinolone 7-06 area(s) 3 ity of cream 00:00: (three) [place] 00 times Medical daily. Branch nystatin-tr 2021-0 Yes [id number] Apply to [facility] iamcinolone 7-06 area(s) 3 ity of cream 00:00: (three) [place] 00 times Medical daily. Branch nystatin-tr 2021-0 Yes [id number] Apply to [facility] iamcinolone 7-06 area(s) 3 ity of cream 00:00: (three) [place] 00 times Medical daily. Branch nystatin-tr 2021-0 Yes [id number] Apply to [facility] iamcinolone 7-06 area(s) 3 ity of cream 00:00: (three) [place] 00 times Medical daily. Branch nystatin-tr 2021-0 Yes [id number] Apply to [facility] iamcinolone 7-06 area(s) 3 ity of cream 00:00: (three) [place] 00 times Medical daily. Branch nystatin-tr 2021-0 Yes [id number] Apply to [facility] iamcinolone 7-06 area(s) 3 ity of cream 00:00: (three) [place] 00 times Medical daily. Branch nystatin-tr 2021-0 Yes [id number] Apply to [facility] iamcinolone 7-06 area(s) 3 ity of cream 00:00: (three) [place] 00 times Medical daily. Branch nystatin-tr 2021-0 Yes [id number] Apply to [facility] iamcinolone 7-06 area(s) 3 ity of cream 00:00: (three) [place] 00 times Medical daily. Branch nystatin-tr 1-0 Yes [id number] Apply to [facility] iamcinolone 7-06 area(s) 3 ity of cream 00:00: (three) [place] 00 times Medical daily. Branch budesonide- 2020-0 2020- No 1{puff} QD Inhale 1 [facility] formoteroL 6-25 06-[address] (SYMBICORT) 14:37: 00:00 morning. H ospita 160-4.5 02 :00 l mcg/actuati on inhaler hydrALAZINE 2020-0 Yes [id number] 50mg Q.[id number] Take 1 [facility] (Apresoline - [id number] tablet (50 Health ) 50 MG 00:00: 3D mg total) tablet 00 by mouth 3 (three) times a day. hydrALAZINE 0 Yes [id number] 50mg Q.[id number] Take 1 [facility] (Apresoline 6- [id number] tablet (50 Health ) 50 MG 00:00: [...] 00:00: ointment 00 nystatin 2020-0 1- No [id number] Q.25D Take 5 mL [facility] (MYCOSTATIN 5-17 [...] e 4-10 Tablet l 14:00: should not [place] 00 be chewed or crushed. (Same as: Protonix) Amiodarone No Notes: Memor ia 4-10 (Same as: l 14:00: Cordarone) [place] Amlodipine No Notes: [facility] ia 4-10 (Same as: l 14:00: Norvasc) [place] emtricitabi No Notes: Caesar lisa ne 200 [...] ia 4-10 (Same as: l 14:00: Cordarone) [place] Amlodipine No Notes: Memor ia 4-10 (Same as: l 14:00: Norvasc) [place] emtricitabi No Notes: Caesar lisa ne 200 MG / 4-10 (Same as: l tenofovir 14:00: Descovy) Herm ariel alafenamide 00 Non-formul 25 MG Oral nancy Tablet [Descovy] Sertraline No Notes: Memor ia 4-10 (Same as: l 14:00: Zoloft) [place] 00 pantoprazol No Notes: [place] lisa e 4-10 Tablet l 14:00: should not [place] 00 be chewed or crushed. (Same as: [...] e 4-10 Tablet l 14:00: should not [place] 00 be chewed or crushed. (Same as: Protonix) Amiodarone No Notes: Memor ia 4-10 (Same as: l 14:00: Cordarone) [place] Amlodipine No Notes: Memor ia 4-10 (Same as: l 14:00: Norvasc) [place] emtricitabi No Notes: Caesar lisa ne 200 MG / 4-10 (Same as: l tenofovir 14:00: Descovy) Herm ariel alafenamide 00 Non-formul 25 MG Oral nancy Tablet [Descovy] Sertraline No Notes: Memor ia 4-10 (Same as: l 14:00: Zoloft) [place] pantoprazol No Notes: [place] lisa e 4-10 Tablet l 14:00: should not [place] 00 be chewed or crushed. (Same as: Protonix) Amiodarone No Notes: Memor ia 4-10 (Same as: l 14:00: Cordarone) [place] Amlodipine No Notes: Memor ia 4-10 (Same [...] ia 4-10 (Same as: l 14:00: Norvasc) [place] emtricitabi No Notes: Caesar lisa ne 200 [...] M emoria 4-10 interfere l 02:00: w/enteral [place] 00 feeds - Take 1 hr before or 2 hr after antacids, dairy pdt, meals & minerals - On empty stomach. For patients unable to swallow tablet, dissolve in 10mL - 30mL of water or juice and stir before giving. (Same As: Carafate) Saline No Notes: [facility]oria Flush 0.9% 4-10 (Same as: l 02:00: BD [place] 00 Posiflush) Eliquis No Notes: Memoria 4-10 Same as: l 02:00: Eliquis [place] 00 Hydralazine No Notes: Caesar lisa Hydrochlori 4-10 (Same as: l de 50 MG 02:00: Apresoline Her mitchell Oral Tablet 00 ) May interfere w/enteral feedings Take With Food Sucralfate No Notes: May M emoria 4-10 interfere l 02:00: w/enteral [place] 00 feeds - Take 1 hr before or 2 hr after antacids, dairy pdt, meals & minerals - On empty stomach. For patients unable to swallow tablet, dissolve in 10mL - 30mL of water or juice and stir before giving. (Same As: Carafate) Saline No Notes: [facility] Flush 0.9% 4-10 (Same as: l 02:00: BD [place] 00 Posiflush) Eliquis No Notes: Memoria 4-10 Same as: l 02:00: Eliquis [place] 00 Hydralazine No Notes: Caesar lisa Hydrochlori 4-10 (Same as: l de 50 MG 02:00: Apresoline Her [place] Oral Tablet 00 ) May interfere w/enteral feedings Take With Food Sucralfate No Notes: May M emoria 4-10 interfere l 02:00: w/enteral [place] 00 feeds - Take 1 hr before or 2 hr after antacids, dairy pdt, meals & minerals - On empty stomach. For patients unable to swallow tablet, dissolve in 10mL - 30mL of water or juice and stir before giving. (Same As: Carafate) Saline No Notes: [facility] Flush 0.9% 4-10 (Same as: l 02:00: BD [place] 00 Posiflush) Eliquis No Notes: Memoria 4-10 Same as: l 02:00: Eliquis [place] Hydralazine No Notes: Caesar lisa Hydrochlori 4-10 [...] 0.9% 4-10 (Same as: l 02:00: BD [place] 00 Posiflush) Eliquis No Notes: Memoria 4-10 Same as: l 02:00: Eliquis [place] 00 Hydralazine No Notes: Caesar lisa Hydrochlori 4-10 (Same as: l de 50 MG 02:00: Apresoline Her [place] Oral Tablet 00 ) May interfere w/enteral feedings Take With Food Sucralfate No Notes: May M emoria 4-10 interfere l 02:00: w/enteral [place] 00 feeds - Take 1 hr before or 2 hr after antacids, dairy pdt, meals & minerals - On empty stomach. For patients unable to swallow tablet, dissolve in 10mL - 30mL of water or juice and stir before giving. (Same As: Carafate) Saline No Notes: [facility]oria Flush 0.9% 4-10 (Same as: l 02:00: BD [place] 00 Posiflush) Eliquis No Notes: Memoria 4-10 Same as: l 02:00: Eliquis [place] Hydralazine No Notes: Caesar lisa Hydrochlori 4-10 [...] 0.9% 4-10 (Same as: l 02:00: BD [place] 00 Posiflush) Eliquis No Notes: Memoria 4-10 [...] not exceed l #3 00:12: 4gm/day of [place] acetaminop hen. (Same as: Tylenol with Codeine # 3) acetaminoph No Notes: Do M emoria en-codeine 4-10 not exceed l #3 00:12: 4gm/day of [place] acetaminop hen. (Same as: Tylenol with Codeine [...] not exceed l #3 00:12: 4gm/day of [place] 00 acetaminop hen. (Same as: Tylenol with Codeine # 3) Buspirone No Notes: Memori a - (Same As: l 22:00: BuSpar) Lisinopril 0 No 40 mg, 1 Mem oria 4- tab, l 22:00: Route: PO, [place] Drug form: TAB, BID, Dosing Weight 97.273, [...] oria 4-09 tab, l 22:00: Route: PO, [place] 00 Drug form: TAB, BID, Dosing Weight [...] oria 4-09 tab, l 22:00: Route: PO, [place] 00 Drug form: TAB, BID, Dosing Weight [...] oria 4-09 tab, l 22:00: Route: PO, [place] 00 Drug form: TAB, BID, Dosing Weight [...] Notes: Memoria 4-09 (Same l 17:07: as:MORPhin [place] 00 e Sulfate) Morphine No Notes: Memoria 4-09 (Same l 17:07: as:MORPhin [place] 00 e Sulfate) Morphine No Notes: [facility]oria 4-09 (Same l 17:07: as:MORPhin [place] 00 e Sulfate) Morphine No Notes: [facility]oria 4-09 (Same l 17:07: as:MORPhin [place] 00 e Sulfate) Morphine No Notes: [facility]oria 4-09 (Same l 17:07: as:MORPhin [place] 00 e Sulfate) Morphine No Notes: Memoria [...] 08-29 Drug form: l 15:40: INJ, ONCE, [place] 00 Stop date: 08/29/20 10:40:00 CDT pantoprazol 2020-0 Yes 40 mg = 1 M emoria e 40 mg 4-09 tab, PO, l oral 15:27: Daily, # [place] enteric 00 30 tab, 0 coated Refill(s), [...] tab, PO, l oral 15:27: Daily, # [place] enter[facility] 00 30 tab, 0 coated Refill(s), tablet Pharmacy: [facility] [id number], 162.56, cm, 08/29/20 5:30:00 CDT, Height, 97.273, kg, 08/29/20 5:30:00 CDT, Weight pantoprazol 2020-0 Yes 40 mg = 1 M emoria e 40 mg 4-09 tab, PO, l oral 15:27: Daily, # [place] enteric 00 30 tab, 0 coated Refill(s), tablet Pharmacy: [facility], 162.56, cm, 08/29/20 5:30:00 CDT, Height, 97.273, kg, 08/29/20 5:30:00 CDT, Weight pantoprazol 2020-0 Yes 40 mg = 1 M emoria e 40 mg 4-09 tab, PO, l oral 15:27: Daily, # [place] enteric 00 30 tab, 0 coated Refill(s), tablet Pharmacy: [facility] [id number], 162.56, cm, 08/29/20 5:30:00 CDT, Height, 97.273, [...] tab, PO, l oral 15:27: Daily, # [place] enter[facility] 00 30 tab, 0 coated Refill(s), tablet Pharmacy: [facility] [address], 162.56, cm, 08/29/20 5:30:00 CDT, Height, 97.273, [...] Skylar nn 00 tab, 0 Refill(s), Pharmacy: [facility] [address], 162.56, cm, 08/29/20 5:30:00 CDT, Height, 97.273, [...] Skylar nn 00 tab, 0 Refill(s), Pharmacy: [facility] [address], 162.56, cm, 08/29/20 5:30:00 CDT, Height, 97.273, kg, 08/29/20 5:30:00 CDT, Weight pantoprazol 1-0 No 40 mg = 1 M emoria e 40 mg 4-09 tab, PO, l oral 15:26: Daily, # [place] enteric 00 30 tab, 0 coated Refill(s) [...] tab, PO, l oral 15:26: Daily, # [place] enteric 00 30 tab, 0 coated Refill(s) [...] tab, PO, l oral 15:26: Daily, # [place] enter[facility] 00 30 tab, 0 coated Refill(s) tablet sucralfate Yes 1 gm = 1 Mem oria 1 g oral 4-09 tab, PO, l tablet 15:26: Q12H, # 28 Skylar nn 00 tab, 0 Refill(s), Pharmacy: [facility], 162.56, cm, 08/29/20 5:30:00 CDT, Height, 97.273, kg, 08/29/20 5:30:00 CDT, Weight Saline No Notes: Memoria Flush 0.9% 4-09 (Same as: l 15:25: BD [place] 00 Posiflush) Lorazepam No Notes: Memori a 4-09 (Same as: l 15:25: Ativan) [place] 00 Saline No Notes: Memoria Flush 0.9% 4-09 (Same as: l 15:25: BD [place] 00 Posiflush) Lorazepam No Notes: Memori a [...] 0.9% 4-09 (Same as: l 15:25: BD [place] 00 Posiflush) Lorazepam No Notes: Memori a [...] 08-29 Drug form: l 14:29: INJ, ONCE, [place] 00 Stop date: 08/29/20 9:29:00 CDT propofol [...] Memori a 08-29 Route: l 14:01: IVP, [place] 00 Q5Min, Dosing Weight 97.273, kg, PRN [...] oria ne 08-29 Route: l 14:01: IVP, [place] 00 Q5Min, Dosing Weight 97.273, kg, PRN Pain Score 7-10, Start date: 08/29/20 9:01:00 CDT, Duration: 4 doses or times, Stop date: Limited # of times Flumazenil 2020-0 No 0.2 mg, Caesar lisa 08-29 Route: l 14:01: IVP, PRN, [place] 00 Dosing Weight 97.273, kg, PRN Benzodiaze pine Reversal, Initial dose, Start date: 08/29/20 9:01:00 CDT, Duration: 30 day, Stop date: 09/28/20 9:00:00 CDT Naloxone 1-0 No 0.4 mg, Memori a 08-29 Route: l 14:01: IVP, [place] 00 Q2MIN, Dosing Weight 97.273, kg, PRN [...] Memori a 08-29 Route: l 14:01: IVP, [place] 00 Q5Min, Dosing Weight 97.273, kg, PRN Elevated BP, Start date: 08/29/20 9:01:00 CDT, Duration: 5 doses or times, Stop date: Limited # of times Acetaminoph 2021-0 No 1,000 mg, M emoria en 08-29 Route: PO, l 14:01: Drug form: [place] 00 TAB, ONCE, Dosing Weight 97.273, kg, [...] oria ne 08-29 Route: l 14:01: IVP, [place] 00 Q5Min, Dosing Weight 97.273, kg, PRN Pain Score 7-10, Start date: 08/29/20 9:01:00 CDT, Duration: 4 doses or times, Stop date: Limited # of times Flumazenil 2020-0 No 0.2 mg, Caesar lisa 08-29 Route: l 14:01: IVP, PRN, [place] 00 Dosing Weight 97.273, kg, PRN Benzodiaze [...] Memori a 08-29 Route: l 14:01: IVP, [place] 00 Q5Min, Dosing Weight 97.273, kg, PRN Elevated BP, Start date: 08/29/20 9:01:00 CDT, Duration: 5 doses or times, Stop date: Limited # of times Acetaminoph 2021-0 No 1,000 mg, M emoria en 08-29 Route: PO, l 14:01: Drug form: [place] 00 TAB, ONCE, Dosing Weight 97.273, kg, [...] lisa 08-29 Route: l 14:01: IVP, PRN, [place] 00 Dosing Weight 97.273, kg, PRN Benzodiaze [...] Memori a 08-29 Route: l 14:01: IVP, [place] 00 Q5Min, Dosing Weight 97.273, kg, PRN Elevated BP, Start date: 08/29/20 9:01:00 CDT, Duration: 5 doses or times, Stop date: Limited # of times Acetaminoph 2021-0 No 1,000 mg, M emoria en 08-29 Route: PO, l 14:01: Drug form: [place] 00 TAB, ONCE, Dosing Weight 97.273, kg, [...] oria ne 08-29 Route: l 14:01: IVP, [place] 00 Q5Min, Dosing Weight 97.273, kg, PRN [...] lisa 08-29 Route: l 14:01: IVP, PRN, [place] 00 Dosing Weight 97.273, kg, PRN Benzodiaze pine Reversal, Initial dose, Start date: 08/29/20 9:01:00 CDT, Duration: 30 day, Stop date: 09/28/20 9:00:00 CDT Naloxone 1-0 No 0.4 mg, Memori a 08-29 Route: l 14:01: IVP, [place] 00 Q2MIN, Dosing Weight 97.273, kg, PRN Narcotic Reversal, Start date: 08/29/20 9:01:00 CDT, Duration: 8 doses or times, Stop date: Limited # of times Flumazenil 1-0 No 0.2 mg, Caesar lisa 08-29 Route: l 14:01: IVP, PRN, [place] 00 Dosing Weight 97.273, kg, PRN Benzodiaze [...] Memori a 08-29 Route: l 14:01: IVP, [place] 00 Q2MIN, Dosing Weight 97.273, kg, PRN [...] 08-29 Route: PO, l 14:01: Drug form: [place] 00 TAB, ONCE, Dosing Weight 97.273, kg, [...] lisa 08-29 Route: l 14:01: IVP, PRN, [place] 00 Dosing Weight 97.273, kg, PRN Benzodiaze [...] ia 08-29 Route: l 14:01: IVP, ONCE, [place] 00 Dosing Weight 97.273, kg, PRN Nausea [...] Memori a 08-29 Route: l 14:01: IVP, [place] 00 Q2MIN, Dosing Weight 97.273, kg, PRN [...] Drug form: l 10 13:15: INJ, Start [place] microgram date: 08/29/20 8:15:00 CDT, Stop date: 08/29/20 9:15:00 CDT norepinephr 2020-0 No Route: IV, Memoria ine (ANES) 08-29 Drug form: l 10 13:15: INJ, Start [place] microgram date: 08/29/20 8:15:00 CDT, Stop date: 08/29/20 9:15:00 CDT norepinephr 2020-0 No Route: IV, [facility] in[facility] (ANES) 08-29 Drug form: l 10 13:15: INJ, Start [place] microgram date: 08/29/20 8:15:00 CDT, Stop date: 08/29/20 9:15:00 CDT norepinephr 2020-0 No Route: IV, [facility] in[facility] (ANES) 08-29 Drug form: l 10 13:15: INJ, Start [place] microgram 00 date: 08/29/20 8:15:00 CDT, Stop date: 08/29/20 9:15:00 CDT norepinephr 2020-0 No Route: IV, [facility] in[facility] (ANES) 08-29 Drug form: l 10 13:15: INJ, Start [place] microgram date: 08/29/20 8:15:00 CDT, Stop date: 08/29/20 9:15:00 CDT norepinephr 2020-0 No Route: IV, [facility] in[facility] (ANES) 08-29 Drug form: l 10 13:15: INJ, Start [place] microgram 00 date: 08/29/20 8:15:00 CDT, Stop date: 08/29/20 9:15:00 CDT norepinephr 2020-0 No Route: IV, [facility] ine (ANES) 4-09 Drug form: l 10 13:15: INJ, Start [place] microgram 00 date: 08/29/20 8:15:00 CDT, Stop date: 08/29/20 9:15:00 CDT Sodium 2021-0 No Route: IV, Memor ia Chloride 4-09 Total l 0.9% IV 12:30: Volume: [place] (ANES) 1000 00 1,000, mL Start date: 08/29/20 7:30:00 CDT, Stop date: 08/29/20 8:30:00 CDT Sodium 2021-0 No Route: IV, [facility]or ia Chloride 4-09 Total l 0.9% IV 12:30: Volume: [place] (ANES) 1000 00 1,000, mL Start date: 08/29/20 7:30:00 CDT, Stop date: 08/29/20 8:30:00 CDT Sodium 2021-0 No Route: IV, [facility] Chloride 4-09 Total l 0.9% IV 12:30: Volume: [place] (ANES) 1000 00 1,000, mL Start date: 08/29/20 7:30:00 CDT, Stop date: 08/29/20 8:30:00 CDT Sodium 2021-0 No Route: IV, [facility] Chloride 4-09 Total l 0.9% IV 12:30: Volume: [place] (ANES) 1000 00 1,000, mL Start date: 08/29/20 7:30:00 CDT, Stop date: 08/29/20 8:30:00 CDT Sodium 2021-0 No Route: IV, [facility] Chloride 4-09 Total l 0.9% IV 12:30: Volume: [place] (ANES) 1000 00 1,000, mL Start date: 08/29/20 7:30:00 CDT, Stop date: 08/29/20 8:30:00 CDT Sodium 2021-0 No Route: IV, [facility] Chloride 4-09 Total l 0.9% IV 12:30: Volume: [place] (ANES) 1000 00 1,000, mL Start date: 08/29/20 7:30:00 CDT, Stop date: 08/29/20 8:30:00 CDT Sodium 2021-0 No Route: IV, [facility] Chloride 4-09 Total l 0.9% IV 12:30: Volume: [place] (ANES) 1000 00 1,000, mL Start date: [...] PO, l Hydrochlori 11:42: Q24H, # 30 [place] de 150 MG 00 tab, 0 Extended Refill(s) Release Tablet 24 HR 2020-0 Yes 150 mg = 1 Memori a Bupropion 4-09 tab, PO, l Hydrochlori 11:42: Q24H, # 30 [place] de 150 MG 00 tab, 0 Extended Refill(s) Release Tablet 24 HR Yes 150 mg = 1 [facility] a Bupropion 4-09 tab, PO, l Hydrochlori 11:42: Q24H, # 30 [place] de 150 MG 00 tab, 0 Extended [...] PO, l Hydrochlori 11:42: Q24H, # 30 [place] de 150 MG 00 tab, 0 Extended Refill(s) Release Tablet 24 Yes 150 mg = 1 [facility] a Bupropion -09 tab, PO, l Hydrochlori 11:42: Q24H, # 30 [place] de 150 MG 00 tab, 0 Extended Refill(s) Release Tablet apixaban 0 Yes 5 mg, PO, Me moria MG Oral 4- Q12H, tab, l Tablet 11:41: 0 [place] [Eliquis] 00 Refill(s), For Atrial Fibrilatio n [...] 4-09 Q12H, tab, l Tablet 11:41: 0 [place] [Eliquis] 00 Refill(s), For Atrial Fibrilatio n apixaban 2020-0 Yes 5 mg, PO, Me moria MG Oral 4-09 Q12H, tab, l Tablet 11:41: 0 [place] [Eliquis] 00 Refill(s), For Atrial Fibrilatio n apixaban 5 0 Yes 5 mg, PO, Me moria MG Oral 4-09 Q12H, tab, l Tablet 11:41: 0 [place] [Eliquis] 00 Refill(s), For Atrial Fibrilatio n apixaban 5 0 Yes 5 mg, PO, Me moria MG Oral 4 Q12H, tab, l Tablet 11:41: 0 [place] [Eliquis] 00 Refill(s), For Atrial Fibrilatio n AMIODarone Yes 200 mg = 1 M emoria 200 mg oral -09 tab, PO, l tablet 11:38: Daily, # [place] 00 90 tab, 3 Refill(s) AMIODarone Yes 200 mg = 1 M em[place] 200 mg oral 4-09 tab, PO, l tablet 11:38: Daily, # [place] 00 90 tab, 3 Refill(s) AMIODarone Yes 200 mg = 1 M emoria 200 mg oral -09 tab, PO, l tablet 11:38: Daily, # [place] 00 90 tab, 3 Refill(s) AMIODarone Yes [...] Immunizations Ordered Filled Immunization Date Status Comments [facility] e Immunization Name Name SARS-COV-2 COVID-19 [...] [place] [facility] PFIZER COVID-19 2020-07-23 Completed [facility] VACCINATION 00:00:00 [facility] PFIZER COVID-19 2020-07-23 Completed [facility] VACCINATION 00:00:00 [facility] PFIZER COVID-19 2020-07-23 Completed [facility] VACCINATION 00:00:00 [facility] PFIZER COVID-19 2020-07-23 Completed [facility] VACCINATION 00:00:00 [facility] PFIZER COVID-19 2020-07-23 Completed [facility] VACCINATION 00:00:00 [facility] PFIZER COVID-19 2020-07-23 Completed [facility] VACCINATION 00:00:00 [facility] PFIZER COVID-19 2020-07-23 Completed [facility] VACCINATION 00:00:00 [facility] PFIZER COVID-19 2020-07-23 Completed [facility] VACCINATION 00:00:00 [facility] PEG COVID-19 2020-07-23 Completed [facility] VACCINATION 00:00:00 [facility] PFIZER COVID-19 2020-07-23 Completed [facility] VACCINATION 00:00:00 [facility] PEG COVID-19 2020-07-23 Completed [facility] VACCINATION 00:00:00 [facility] PEG COVID-19 2020-07-23 Completed [facility] VACCINATION 00:00:00 [facility] PEG COVID-19 2020-07-23 Completed [facility]RNA VACCINATION 00:00:00 [facility] PEG COVID-19 2020-07-23 Completed [facility]RNA VACCINATION 00:00:00 [facility] PEG COVID-19 2020-07-23 Completed [facility] VACCINATION 00:00:00 [facility] PEG COVID-19 2020-07-23 Completed [facility] MRNA VACCINATION 00:00:00 [facility] PEG COVID-19 2020-07-23 Completed [facility] VACCINATION 00:00:00 [facility] PEG COVID-19 2020-07-23 Completed [facility] VACCINATION 00:00:00 [facility] PEG COVID-19 2020-07-23 Completed [facility] MRNA VACCINATION 00:00:00 [facility] PEG COVID-19 2020-07-23 Completed [facility]RNA VACCINATION 00:00:00 [facility] PEG COVID-19 2020-07-23 Completed [facility] VACCINATION 00:00:00 [facility] PEG COVID-19 2020-07-23 Completed [facility] VACCINATION 00:00:00 [facility] PEG COVID-19 2020-07-23 Completed [facility]RNA VACCINATION 00:00:00 [facility] PEG COVID-19 2020-07-23 Completed [facility]RNA VACCINATION 00:00:00 [facility] PEG COVID-19 2020-07-23 Completed [facility]RNA VACCINATION 00:00:00 [facility] PFIZER COVID-19 2020-07-23 Completed [facility]RNA VACCINATION 00:00:00 [facility] PFIZER COVID-19 2020-07-23 Completed [facility]RNA VACCINATION 00:00:00 [facility] PFIZER COVID-19 2020-07-23 Completed [facility]RNA VACCINATION 00:00:00 [facility] PEG COVID-19 2020-07-23 Completed [facility] VACCINATION 00:00:00 [facility] PFIZER COVID-19 2020-07-23 Completed [facility] VACCINATION 00:00:00 [facility] PFIZER COVID-19 2020-07-23 Completed [facility] VACCINATION 00:00:00 [facility] PFIZER COVID-19 2020-07-23 Completed [facility]RNA VACCINATION 00:00:00 [facility] PFIZER COVID-19 2020-07-23 Completed [facility]RNA VACCINATION 00:00:00 [facility] PFIZER COVID-19 2020-07-23 Completed [facility] VACCINATION 00:00:00 [facility] PFIZER COVID-19 2020-07-23 Completed [facility] VACCINATION 00:00:00 [facility] PFIZER COVID-19 2020-07-23 Completed [facility] MRNA VACCINATION 00:00:00 [facility] PFIZER COVID-19 2020-07-23 Completed [facility] MRNA VACCINATION 00:00:00 [facility] PFIZER COVID-19 2020-07-23 Completed [facility] MRNA VACCINATION 00:00:00 [facility] PFIZER COVID-19 2020-07-23 Completed [facility] M[facility] VACCINATION 00:00:00 [facility] PFIZER COVID-19 2020-07-23 Completed [facility] MRNA VACCINATION 00:00:00 [facility] PFIZER COVID-19 2020-07-23 Completed [facility] MRNA VACCINATION 00:00:00 [facility] PFIZER COVID-19 2020-07-23 Completed [facility] MRNA VACCINATION 00:00:00 [facility] PFIZER COVID-19 2020-07-23 Completed [facility] MRNA VACCINATION 00:00:00 [facility] PFIZER COVID-19 2020-07-23 Completed [facility] MRNA VACCINATION 00:00:00 [facility] PFIZER COVID-19 2020-07-23 Completed [facility] MRNA VACCINATION 00:00:00 [facility] PFIZER COVID-19 2020-07-23 Completed [facility] MRNA VACCINATION 00:00:00 [facility] PFIZER COVID-19 2020-07-23 Completed [facility] MRNA VACCINATION 00:00:00 [facility] PFIZER COVID-19 2020-07-23 Completed [facility] MRNA VACCINATION 00:00:00 [facility] PFIZER COVID-19 2020-07-23 Completed [facility] MRNA VACCINATION 00:00:00 [facility] PFIZER COVID-19 2020-07-23 Completed [facility] MRNA VACCINATION 00:00:00 [facility] PFIZER COVID-19 2020-07-23 Completed [facility] VACCINATION 00:00:00 [facility] SARS-COV-2 COVID-19 2020-07-23 Completed [facility] PFIZER VACCINE 00:00:00 [place] [facility] SARS-COV-2 COVID-19 2020-07-23 Completed [facility] of PFIZER VACCINE 00:00:00 [facility] SARS-COV-2 COVID-19 2020-07-23 Completed [facility]ive [facility] of PFIZER VACCINE 00:00:00 [facility] SARS-COV-2 COVID-19 2020-07-23 Completed [facility] of PFIZER VACCINE 00:00:00 [facility] SARS-COV-2 COVID-19 2020-07-23 Completed [facility] of PFIZER VACCINE 00:00:00 [facility] SARS-COV-2 COVID-19 2020-07-23 Completed [facility] of PFIZER VACCINE 00:00:00 [facility] SARS-COV-2 COVID-19 2020-07-23 Completed [facility] of PFIZER VACCINE 00:00:00 [facility] SARS-COV-2 COVID-19 2020-07-23 Completed [facility] of PFIZER VACCINE 00:00:00 [facility] SARS-COV-2 COVID-19 2020-07-23 Completed [facility] of PFIZER VACCINE 00:00:00 [facility] SARS-COV-2 COVID-19 2020-07-23 Completed [facility] of PFIZER VACCINE 00:00:00 [facility] SARS-COV-2 COVID-19 2020-07-23 Completed [facility] of PFIZER VACCINE 00:00:00 [facility] SARS-COV-2 COVID-19 2020-07-23 Completed [facility]ive rs[facility] of PFIZER VACCINE 00:00:00 [facility] SARS-COV-2 COVID-19 2020-07-23 Completed [facility] of PFIZER VACCINE 00:00:00 [facility] SARS-COV-2 COVID-19 2020-07-23 Completed [facility] of PFIZER VACCINE 00:00:00 [facility] SARS-COV-2 COVID-19 2020-07-23 Completed [facility] of PFIZER VACCINE 00:00:00 [facility] SARS-COV-2 COVID-19 2020-07-23 Completed [facility] of PFIZER VACCINE 00:00:00 [facility] SARS-COV-2 COVID-19 2020-07-23 Completed [facility] of PFIZER VACCINE 00:00:00 [facility] SARS-COV-2 COVID-19 2020-07-23 Completed [facility]ive [facility] of PFIZER VACCINE 00:00:00 [facility] PFIZER COVID-19 2020-07-23 Completed [facility] VACCINATION 00:00:00 [facility] PFIZER COVID-19 2020-07-02 Completed [facility] VACCINATION 00:00:00 [facility] PFIZER COVID-19 2020-07-02 Completed [facility] VACCINATION 00:00:00 [facility] PFIZER COVID-19 2020-07-02 Completed [facility] MRNA VACCINATION 00:00:00 [facility] PFIZER COVID-19 2020-07-02 Completed [facility] MRNA VACCINATION 00:00:00 [facility] PFIZER COVID-19 2020-07-02 Completed [facility] MRNA VACCINATION 00:00:00 [facility] PFIZER COVID-19 2020-07-02 Completed [facility] MRNA VACCINATION 00:00:00 [facility] PFIZER COVID-19 2020-07-02 Completed [facility] MRNA VACCINATION 00:00:00 [facility] PFIZER COVID-19 2020-07-02 Completed [facility] MRNA VACCINATION 00:00:00 [facility] PFIZER COVID-19 2020-07-02 Completed [facility] MRNA VACCINATION 00:00:00 [facility] PFIZER COVID-19 2020-07-02 Completed [facility] MRNA VACCINATION 00:00:00 [facility] PFIZER COVID-19 2020-07-02 Completed [facility] MRNA VACCINATION 00:00:00 [facility] PFIZER COVID-19 2020-07-02 Completed [facility] MRNA VACCINATION 00:00:00 [facility] PFIZER COVID-19 2020-07-02 Completed [facility] MRNA VACCINATION 00:00:00 [facility] PFIZER COVID-19 2020-07-02 Completed [facility] MRNA VACCINATION 00:00:00 [facility] PFIZER COVID-19 2020-07-02 Completed [facility] MRNA VACCINATION 00:00:00 [facility] PFIZER COVID-19 2020-07-02 Completed [facility] MRNA VACCINATION 00:00:00 [facility] PFIZER COVID-19 2020-07-02 Completed [facility] MRNA VACCINATION 00:00:00 [facility] PFIZER COVID-19 2020-07-02 Completed [facility] MRNA VACCINATION 00:00:00 [facility] PFIZER COVID-19 2020-07-02 Completed [facility] MRNA VACCINATION 00:00:00 [facility] PFIZER COVID-19 2020-07-02 Completed [facility] MRNA VACCINATION 00:00:00 [facility] PFIZER COVID-19 2020-07-02 Completed [facility] MRNA VACCINATION 00:00:00 [facility] PFIZER COVID-19 2020-07-02 Completed [facility] MRNA VACCINATION 00:00:00 [facility] PFIZER COVID-19 2020-07-02 Completed [facility] MRNA VACCINATION 00:00:00 [facility] PFIZER COVID-19 2020-07-02 Completed [facility] MRNA VACCINATION 00:00:00 [facility] PFIZER COVID-19 2020-07-02 Completed [facility] MRNA VACCINATION 00:00:00 [facility] PFIZER COVID-19 2020-07-02 Completed [facility] MRNA VACCINATION 00:00:00 [facility] PFIZER COVID-19 2020-07-02 Completed [facility] MRNA VACCINATION 00:00:00 [facility] PFIZER COVID-19 2020-07-02 Completed [facility] MRNA VACCINATION 00:00:00 [facility] PFIZER COVID-19 2020-07-02 Completed [facility] MRNA VACCINATION 00:00:00 [facility] PFIZER COVID-19 2020-07-02 Completed [facility] MRNA VACCINATION 00:00:00 [facility] PFIZER COVID-19 2020-07-02 Completed [facility] MRNA VACCINATION 00:00:00 [facility] PFIZER COVID-19 2020-07-02 Completed [facility] MRNA VACCINATION 00:00:00 [facility] PFIZER COVID-19 2020-07-02 Completed [facility] MRNA VACCINATION 00:00:00 [facility] PFIZER COVID-19 2020-07-02 Completed [facility] MRNA VACCINATION 00:00:00 [facility] PFIZER COVID-19 2020-07-02 Completed [facility] MRNA VACCINATION 00:00:00 [facility] PFIZER COVID-19 2020-07-02 Completed [facility] MRNA VACCINATION 00:00:00 [facility] PFIZER COVID-19 2020-07-02 Completed [facility] MRNA VACCINATION 00:00:00 [facility] PFIZER COVID-19 2020-07-02 Completed [facility] MRNA VACCINATION 00:00:00 [facility] PFIZER COVID-19 2020-07-02 Completed [facility] MRNA VACCINATION 00:00:00 [facility] PFIZER COVID-19 2020-07-02 Completed [facility] MRNA VACCINATION 00:00:00 [facility] PFIZER COVID-19 2020-07-02 Completed [facility] MRNA VACCINATION 00:00:00 [facility] PFIZER COVID-19 2020-07-02 Completed [facility] MRNA VACCINATION 00:00:00 [facility] PFIZER COVID-19 2020-07-02 Completed [facility] MRNA VACCINATION 00:00:00 [facility] PFIZER COVID-19 2020-07-02 Completed [facility] VACCINATION 00:00:00 [facility] PFIZER COVID-19 2020-07-02 Completed [facility] VACCINATION 00:00:00 [facility] PFIZER COVID-19 2020-07-02 Completed [facility] VACCINATION 00:00:00 [facility] PFIZER COVID-19 2020-07-02 Completed [facility] VACCINATION 00:00:00 [facility] PFIZER COVID-19 2020-07-02 Completed [facility] MRNA VACCINATION 00:00:00 [facility] PFIZER COVID-19 2020-07-02 Completed [facility] MRNA VACCINATION 00:00:00 [facility] PFIZER COVID-19 2020-07-02 Completed [facility] MRNA VACCINATION 00:00:00 [facility] PFIZER COVID-19 2020-07-02 Completed [facility] MRNA VACCINATION 00:00:00 [facility] SARS-COV-2 COVID-19 2020-07-02 Completed [facility] of PFIZER VACCINE 00:00:00 [facility] SARS-COV-2 COVID-19 2020-07-02 Completed [facility] of PFIZER VACCINE 00:00:00 [facility] SARS-COV-2 COVID-19 2020-07-02 Completed [facility] of PFIZER VACCINE 00:00:00 [facility] SARS-COV-2 COVID-19 2020-07-02 Completed [facility] of PFIZER VACCINE 00:00:00 [facility] SARS-COV-2 COVID-19 2020-07-02 Completed [facility] of PFIZER VACCINE 00:00:00 [facility] SARS-COV-2 COVID-19 2020-07-02 Completed [facility] of PFIZER VACCINE 00:00:00 [facility] SARS-COV-2 COVID-19 2020-07-02 Completed [facility] of PFIZER VACCINE 00:00:00 [facility] SARS-COV-2 COVID-19 2020-07-02 Completed [facility] of PFIZER VACCINE 00:00:00 [facility] SARS-COV-2 COVID-19 2020-07-02 Completed [facility] of PFIZER VACCINE 00:00:00 [facility] SARS-COV-2 COVID-19 2020-07-02 Completed [facility] of PFIZER VACCINE 00:00:00 [facility] SARS-COV-2 COVID-19 2020-07-02 Completed [facility] of PFIZER VACCINE 00:00:00 [facility] SARS-COV-2 COVID-19 2020-07-02 Completed [facility] of PFIZER VACCINE 00:00:00 [facility] SARS-COV-2 COVID-19 2020-07-02 Completed [facility] of PFIZER VACCINE 00:00:00 [facility] SARS-COV-2 COVID-19 2020-07-02 Completed [facility] of PFIZER VACCINE 00:00:00 [facility] SARS-COV-2 COVID-19 2020-07-02 Completed [facility] of PFIZER VACCINE 00:00:00 [facility] SARS-COV-2 COVID-19 2020-07-02 Completed [facility] of PFIZER VACCINE 00:00:00 [facility] SARS-COV-2 COVID-19 2020-07-02 Completed [facility] of PFIZER VACCINE 00:00:00 [facility] SARS-COV-2 COVID-19 2020-07-02 Completed [facility] of PFIZER VACCINE 00:00:00 [facility] PFIZER COVID-19 2020-07-02 Completed [facility] VACCINATION 00:00:00 [facility] Influenza Virus 2017-03-08 Completed [facility] Vaccine 00:00:00 [facility] Influenza Virus 2017-03-08 Completed [facility] Vaccine 00:00:00 [facility] Influenza Virus 2017-03-08 Completed [facility] Vaccine 00:00:00 [facility] Influenza Virus 2017-03-08 Completed [facility] Vaccine 00:00:00 [facility] Influenza Virus 2017-03-08 Completed [facility] Vaccine 00:00:00 [facility] Influenza Virus 2017-03-08 Completed [facility] Vaccine 00:00:00 [facility] Influenza Virus 2017-03-08 Completed [facility] Vaccine 00:00:00 [facility] Influenza Virus 2017-03-08 Completed [facility] Vaccine 00:00:00 [facility] Influenza Virus 2017-03-08 Completed [facility] Vaccine 00:00:00 [facility] Influenza Virus 2017-03-08 Completed [facility] Vaccine 00:00:00 [facility] Influenza Virus 2017-03-08 Completed [facility] Vaccine 00:00:00 [facility] Influenza Virus 2017-03-08 Completed [facility] Vaccine 00:00:00 [facility] Influenza Virus 2017-03-08 Completed [facility] Vaccine 00:00:00 [facility] Influenza Virus 2017-03-08 Completed [facility] of Vaccine 00:00:00 [facility] Influenza Virus 2017-03-08 Completed [facility] Vaccine 00:00:00 [facility] Influenza Virus 2017-03-08 Completed [facility] of Vaccine 00:00:00 [facility] Influenza Virus 2017-03-08 Completed [facility] Vaccine 00:00:00 [facility] Influenza Virus 2017-03-08 Completed [facility] of Vaccine 00:00:00 [facility] Influenza Virus 2017-03-08 Completed [facility] of Vaccine 00:00:00 [facility] Influenza Virus 2017-03-08 Completed [facility] of Vaccine 00:00:00 [facility] Influenza Virus 2017-03-08 Completed [facility] Vaccine 00:00:00 [facility] Influenza Virus 2017-03-08 Completed [facility] Vaccine 00:00:00 [facility] Influenza Virus 2014-01-30 Completed [facility] Vaccine (3+ yrs) 00:00:00 [facility] Pneumococcal 13 2014-01-30 Completed [facility] Conjugate, PCV13 00:00[facility] [place] Influenza Virus 2014-01-30 Completed [facility] Vaccine (3+ yrs) 00:00:00 [facility] Pneumococcal 13 2014-01-30 Completed [facility] of Conjugate, PCV13 00:00:00 [facility] (Prevnar 13) [facility] Influenza Virus 2014-01-30 Completed [facility] of Vaccine (3+ yrs) 00:00:00 [facility] Pneumococcal 13 2014-01-30 Completed [facility] Conjugate, PCV13 00:00:00 [facility] Influenza Virus 2014-01-30 Completed [facility] Vaccine (3+ yrs) 00:00:00 [facility] Pneumococcal 13 2014-01-30 Completed [facility] Conjugate, PCV13 00:00:00 [facility] Influenza Virus 2014-01-30 Completed [facility] Vaccine (3+ yrs) 00:00:00 [facility] Pneumococcal 13 2014-01-30 Completed [facility] Conjugate, PCV13 00:00:00 [facility] (Prevnar 13) [facility] Influenza Virus 2014-01-30 Completed [facility] Vaccine (3+ yrs) 00:00:00 [place] [facility] Pneumococcal 13 2014-01-30 Completed [facility] Conjugate, PCV13 00:00:00 [place] [facility] (Prevnar 13) [facility] Influenza Virus 2014-01-30 Completed [facility] Vaccine (3+ yrs) 00:00:00 [place] [facility] Pneumococcal 13 2014-01-30 Completed [facility] Conjugate, PCV13 00:00:00 [place] [facility] (Prevnar 13) [facility] Influenza Virus 2014-01-30 Completed [facility] Vaccine (3+ yrs) 00:00:00 [facility] Pneumococcal 13 2014-01-30 Completed [facility] of Conjugate, PCV13 00:00:00 [facility] (Prevnar 13) [facility] Influenza Virus 2014-01-30 Completed [facility] Vaccine (3+ yrs) 00:00:00 [facility] Pneumococcal 13 2014-01-30 Completed [facility] Conjugate, PCV13 00:00:00 [place] [facility] (Prevnar 13) [facility] Influenza Virus 2014-01-30 Completed [facility] Vaccine (3+ yrs) 00:00:00 [facility] Pneumococcal 13 2014-01-30 Completed [facility] of Conjugate, PCV13 00:00:00 [facility] dical (Prevnar 13) Branch Influenza Virus 2014-01-30 Completed [facility] Vaccine (3+ yrs) 00:00:00 [facility] Branch Pneumococcal 13 2014-01-30 Completed [facility]it [facility] of Conjugate, PCV13 00:00:00 [facility] (Prevnar 13) Branch Influenza Virus 2014-01-30 Completed [facility] of Vaccine (3+ yrs) 00:00:00 [facility] Branch Pneumococcal 13 2014-01-30 Completed [facility]it [facility] of Conjugate, PCV13 00:00:00 [facility] (Prevnar 13) Branch Influenza Virus 2014-01-30 Completed [facility] of Vaccine (3+ yrs) 00:00:00 [facility] Branch Pneumococcal 13 2014-01-30 Completed [facility] of Conjugate, PCV13 00:00:00 [facility] (Prevnar 13) Branch Influenza Virus 2014-01-30 Completed [facility] of Vaccine (3+ yrs) 00:00:00 [facility] Pneumococcal 13 2014-01-30 Completed [facility] of Conjugate, PCV13 00:00:00 [facility] (Prevnar 13) Branch Influenza Virus 2014-01-30 Completed [facility] Vaccine (3+ yrs) 00:00:00 [facility] Pneumococcal 13 2014-01-30 Completed [facility] of Conjugate, PCV13 00:00:00 [facility] (Prevnar 13) Branch Influenza Virus 2014-01-30 Completed [facility] Vaccine (3+ yrs) 00:00:00 [facility] Pneumococcal 13 2014-01-30 Completed [facility] of Conjugate, PCV13 00:00:00 [facility] d[facility] (Prevnar 13) Branch Influenza Virus 2014-01-30 Completed [facility] of Vaccine (3+ yrs) 00:00:00 [facility] Branch Pneumococcal 13 2014-01-30 Completed [facility] of Conjugate, PCV13 00:00:00 [facility] (Prevnar 13) Branch Influenza Virus 2014-01-30 Completed [facility] of Vaccine (3+ yrs) 00:00:00 [facility] Branch Pneumococcal 13 2014-01-30 Completed [facility] of Conjugate, PCV13 00:00:00 [facility] (Prevnar 13) Branch Influenza Virus 2014-01-30 Completed [facility] of Vaccine (3+ yrs) 00:00:00 [facility] Branch Pneumococcal 13 2014-01-30 Completed [facility] of Conjugate, PCV13 00:00:00 [facility] (Prevnar 13) Branch Influenza Virus 2014-01-30 Completed [facility] of Vaccine (3+ yrs) 00:00:00 [facility] Branch Pneumococcal 13 2014-01-30 Completed [facility] of Conjugate, PCV13 00:00:00 [facility] (Prevnar 13) Branch Influenza Virus 2014-01-30 Completed [facility] of Vaccine (3+ yrs) 00:00:00 [facility] Branch Pneumococcal 13 2014-01-30 Completed [facility] of Conjugate, PCV13 00:00:00 [facility] (Prevnar 13) Branch Influenza Virus 2014-01-30 Completed [facility] of Vaccine (3+ yrs) 00:00:00 [facility] Pneumococcal 13 2014-01-30 Completed [facility] of Conjugate, PCV13 00:00:00 [facility] d[facility] (Prevnar 13) Branch Pneumococcal 2012-02-16 Completed University o f Polysaccharide, 00:00:00 [facility] PPSV23 (PNEUMOVAX) Branch Influenza Virus 2012-02-16 Completed [facility] of Vaccine 00:00:00 [facility] PPD (TB) 2012-02-16 Completed [facility] of 00:00:00 [facility] Pneumococcal 2012-02-16 Completed [facility] o f Polysaccharide, 00:00:00 [facility] PPSV23 (PNEUMOVAX) Branch Influenza Virus 2012-02-16 Completed [facility] Vaccine 00:00:00 [facility] PPD (TB) 2012-02-16 Completed [facility] of 00:00:00 [facility] Pneumococcal 2012-02-16 Completed [facility] o f Polysaccharide, 00:00:00 [facility] PPSV23 (PNEUMOVAX) Branch Influenza Virus 2012-02-16 Completed [facility] of Vaccine 00:00:00 [facility] PPD (TB) 2012-02-16 Completed [facility] of 00:00:00 [facility] Pneumococcal 2012-02-16 Completed [facility] o f Polysaccharide, 00:00:00 [facility] PPSV23 (PNEUMOVAX) Branch Influenza Virus 2012-02-16 Completed [facility] of Vaccine 00:00:00 [facility] PPD (TB) 2012-02-16 Completed [facility] of 00:00:00 [facility] Pneumococcal 2012-02-16 Completed [facility] o f Polysaccharide, 00:00:00 [facility] PPSV23 (PNEUMOVAX) Branch Influenza Virus 2012-02-16 Completed [facility] of Vaccine 00:00:00 [facility] PPD (TB) 2012-02-16 Completed [facility] of 00:00:00 [facility] Pneumococcal 2012-02-16 Completed [facility] o f Polysaccharide, 00:00:00 [facility] PPSV23 (PNEUMOVAX) Branch Influenza Virus 2012-02-16 Completed [facility] of Vaccine 00:00:00 [facility] PPD (TB) 2012-02-16 Completed [facility] of 00:00:00 [facility] Pneumococcal 2012-02-16 Completed [facility] o f Polysaccharide, 00:00:00 [facility] PPSV23 (PNEUMOVAX) Branch Influenza Virus 2012-02-16 Completed [facility] of Vaccine 00:00:00 [facility] PPD (TB) 2012-02-16 Completed [facility] of 00:00:00 [facility] Pneumococcal 2012-02-16 Completed [facility] o f Polysaccharide, 00:00:00 [facility] PPSV23 (PNEUMOVAX) Branch Influenza Virus 2012-02-16 Completed [facility] of Vaccine 00:00:00 [facility] PPD (TB) 2012-02-16 Completed [facility] of 00:00:00 [facility] Pneumococcal 2012-02-16 Completed [facility] o f Polysaccharide, 00:00:00 [facility] PPSV23 (PNEUMOVAX) Branch Influenza Virus 2012-02-16 Completed [facility] of Vaccine 00:00:00 [facility] PPD (TB) 2012-02-16 Completed [facility] of 00:00:00 [facility] Pneumococcal 2012-02-16 Completed [facility] o f Polysaccharide, 00:00:00 [facility] PPSV23 (PNEUMOVAX) Branch Influenza Virus 2012-02-16 Completed [facility] of Vaccine 00:00:00 [facility] PPD (TB) 2012-02-16 Completed [facility] of 00:00:00 [facility] Pneumococcal 2012-02-16 Completed [facility] o f Polysaccharide, 00:00:00 [facility] PPSV23 (PNEUMOVAX) Branch Influenza Virus 2012-02-16 Completed [facility] Vaccine 00:00:00 [facility] PPD (TB) 2012-02-16 Completed [facility] of 00:00:00 [facility] Pneumococcal 2012-02-16 Completed [facility] o f Polysaccharide, 00:00:00 [facility] PPSV23 (PNEUMOVAX) Branch Influenza Virus 2012-02-16 Completed [facility] of Vaccine 00:00:00 [facility] PPD (TB) 2012-02-16 Completed [facility] of 00:00:00 [facility] Pneumococcal 2012-02-16 Completed [facility] o f Polysaccharide, 00:00:00 [facility] PPSV23 (PNEUMOVAX) Branch Influenza Virus 2012-02-16 Completed [facility] of Vaccine 00:00:00 [facility] PPD (TB) 2012-02-16 Completed [facility] of 00:00:00 [facility] Pneumococcal 2012-02-16 Completed [facility] o f Polysaccharide, 00:00:00 [facility] PPSV23 (PNEUMOVAX) Branch Influenza Virus 2012-02-16 Completed [facility] of Vaccine 00:00:00 [facility] PPD (TB) 2012-02-16 Completed [facility] of 00:00:00 [facility] Pneumococcal 2012-02-16 Completed [facility] o f Polysaccharide, 00:00:00 [facility] PPSV23 (PNEUMOVAX) Branch Influenza Virus 2012-02-16 Completed [facility] of Vaccine 00:00:00 [facility] PPD (TB) 2012-02-16 Completed [facility] of 00:00:00 [facility] Pneumococcal 2012-02-16 Completed [facility] f Polysaccharide, 00:00:00 [facility] PPSV23 (PNEUMOVAX) Branch Influenza Virus 2012-02-16 Completed [facility] of Vaccine 00:00:00 [facility] PPD (TB) 2012-02-16 Completed [facility] of 00:00:00 [facility] Pneumococcal 2012-02-16 Completed [facility] o f Polysaccharide, 00:00:00 [facility] PPSV23 (PNEUMOVAX) Branch Influenza Virus 2012-02-16 Completed [facility] of Vaccine 00:00:00 [facility] PPD (TB) 2012-02-16 Completed [facility] of 00:00:00 [facility] Pneumococcal 2012-02-16 Completed [facility] o f Polysaccharide, 00:00:00 [facility] PPSV23 (PNEUMOVAX) Branch Influenza Virus 2012-02-16 Completed [facility] of Vaccine 00:00:00 [facility] PPD (TB) 2012-02-16 Completed [facility] of 00:00:00 [facility] Pneumococcal 2012-02-16 Completed [facility] o f Polysaccharide, 00:00:00 [facility] PPSV23 (PNEUMOVAX) Branch Influenza Virus 2012-02-16 Completed [facility] of Vaccine 00:00:00 [facility] PPD (TB) 2012-02-16 Completed [facility] of 00:00:00 [facility] Pneumococcal 2012-02-16 Completed [facility] o f Polysaccharide, 00:00:00 [facility] PPSV23 (PNEUMOVAX) Branch Influenza Virus 2012-02-16 Completed [facility] of Vaccine 00:00:00 [facility] PPD (TB) 2012-02-16 Completed [facility] of 00:00:00 [facility] Pneumococcal 2012-02-16 Completed [facility] o f Polysaccharide, 00:00:00 [facility] PPSV23 (PNEUMOVAX) Branch Influenza Virus 2012-02-16 Completed [facility] of Vaccine 00:00:00 [facility] PPD (TB) 2012-02-16 Completed [facility] of 00:00:00 [facility] Pneumococcal 2012-02-16 Completed [facility] o f Polysaccharide, 00:00:00 [facility] PPSV23 (PNEUMOVAX) [place] Influenza Virus 2012-02-16 Completed [facility] of Vaccine 00:00:00 [facility] PPD (TB) 2012-02-16 Completed University of 00:00:00 [facility] Hep B, Adol or Pedi 2011-09-01 Completed Unive rsity of Dosage 00:00:00 [facility] Hep B, Adol or Pedi 2011-09-01 Completed Unive rsity of Dosage 00:00:00 [facility] Hep B, Adol or Pedi 2011-09-01 Completed Unive rsity of Dosage 00:00:00 [facility] Hep B, Adol or Pedi 2011-09-01 Completed Unive rsity of Dosage 00:00:00 [facility] Hep B, Adol or Pedi 2011-09-01 Completed Unive rsity of Dosage 00:00:00 [facility] Hep B, Adol or Pedi 2011-09-01 Completed [facility]ive rsity of Dosage 00:00:00 [facility] Hep B, Adol or Pedi 2011-09-01 Completed [facility]ive rsity of Dosage 00:00:00 [facility] Hep B, Adol or Pedi 2011-09-01 Completed [facility]ive rsity of Dosage 00:00:00 [facility] Hep B, Adol or Pedi 2011-09-01 Completed [facility] Dosage 00:00:00 [facility] Hep B, Adol or Pedi 2011-09-01 Completed [facility]ive rsity of Dosage 00:00:00 [facility] Hep B, Adol or Pedi 2011-09-01 Completed [facility]ive rsity of Dosage 00:00:00 [facility] Hep B, Adol or Pedi 2011-09-01 Completed [facility]ive rsity of Dosage 00:00:00 [facility] Hep B, Adol or Pedi 2011-09-01 Completed [facility]ive rsity of Dosage 00:00:00 [facility] Hep B, Adol or Pedi [...] Unive rsity of Dosage 00:00:00 [facility] Hep B, Adol or Pedi 2011-03-17 Completed [facility]ive rsity of Dosage 00:00:00 [facility] Influenza Virus 2011-02-10 Completed [facility] Vaccine 00:00:00 [facility] Hep B, Adol or Pedi 2011-02-10 Completed [facility]ive rs[facility] of Dosage 00:00:00 [facility] Influenza Virus 2011-02-10 Completed [facility] Vaccine 00:00:00 [facility] Hep B, Adol or Pedi 2011-02-10 Completed [facility]ive rs[facility] of Dosage 00:00:00 [facility] Influenza Virus 2011-02-10 Completed [facility] Vaccine 00:00:00 [facility] Hep B, Adol or Pedi 2011-02-10 Completed [facility]ive rs[facility] of Dosage 00:00:00 [facility] Influenza Virus 2011-02-10 Completed [facility] of Vaccine 00:00:00 [facility] Hep B, Adol or Pedi 2011-02-10 Completed Unive rsity of Dosage 00:00:00 [facility] Influenza Virus 2011-02-10 Completed [facility] Vaccine 00:00:00 [facility] Hep B, Adol or Pedi 2011-02-10 Completed Unive rsity of Dosage 00:00:00 [facility] Influenza Virus 2011-02-10 Completed [facility] Vaccine 00:00:00 [facility] Hep B, Adol or Pedi 2011-02-10 Completed Unive rsity of Dosage 00:00:00 [facility] Influenza Virus 2011-02-10 Completed [facility] of Vaccine 00:00:00 [facility] Hep B, Adol or Pedi 2011-02-10 Completed Unive rsity of Dosage 00:00:00 [facility] Influenza Virus 2011-02-10 Completed [facility] of Vaccine 00:00:00 [facility] Hep B, Adol or Pedi 2011-02-10 Completed [facility]ive rsity of Dosage 00:00:00 [facility] Influenza Virus 2011-02-10 Completed [facility] of Vaccine 00:00:00 [facility] Hep B, Adol or Pedi 2011-02-10 Completed [facility]ive rs[facility] of Dosage 00:00:00 [facility] Influenza Virus 2011-02-10 Completed [facility] of Vaccine 00:00:00 [facility] Hep B, Adol or Pedi 2011-02-10 Completed [facility]ive rs[facility] of Dosage 00:00:00 [facility] Influenza Virus 2011-02-10 Completed [facility] Vaccine 00:00:00 [facility] Hep B, Adol or Pedi 2011-02-10 Completed [facility] rs[facility] of Dosage 00:00:00 [facility] Influenza Virus 2011-02-10 Completed [facility] Vaccine 00:00:00 [facility] Hep B, Adol or Pedi 2011-02-10 Completed [facility]ive rs[facility] of Dosage 00:00:00 [facility] Influenza Virus 2011-02-10 Completed [facility] Vaccine 00:00:00 [facility] Hep B, Adol or Pedi 2011-02-10 Completed [facility] rs[facility] of Dosage 00:00:00 [facility] Influenza Virus 2011-02-10 Completed [facility] Vaccine 00:00:00 [facility] Hep B, Adol or Pedi 2011-02-10 Completed [facility]ive rs[facility] of Dosage 00:00:00 [facility] Influenza Virus 2011-02-10 Completed [facility] Vaccine 00:00:00 [facility] Hep B, Adol or Pedi 2011-02-10 Completed [facility] rs[facility] of Dosage 00:00:00 [facility] Influenza Virus 2011-02-10 Completed [facility] of Vaccine 00:00:00 [facility] Hep B, Adol or Pedi 2011-02-10 Completed [facility] rs[facility] of Dosage 00:00:00 [facility] Influenza Virus 2011-02-10 Completed [facility] Vaccine 00:00:00 [facility] Hep B, Adol or Pedi 2011-02-10 Completed [facility] rs[facility] of Dosage 00:00:00 [facility] Influenza Virus 2011-02-10 Completed [facility] Vaccine 00:00:00 [facility] Hep B, Adol or Pedi 2011-02-10 Completed [facility] rs[facility] of Dosage 00:00:00 [facility] Influenza Virus 2011-02-10 Completed [facility] Vaccine 00:00:00 [facility] Hep B, Adol or Pedi 2011-02-10 Completed [facility] rs[facility] of Dosage 00:00:00 [facility] Influenza Virus 2011-02-10 Completed [facility] Vaccine 00:00:00 [facility] Hep B, Adol or Pedi 2011-02-10 Completed [facility] rs[facility] of Dosage 00:00:00 [facility] Influenza Virus 2011-02-10 Completed [facility] Vaccine 00:00:00 [facility] Hep B, Adol or Pedi 2011-02-10 Completed [facility] rs[facility] of Dosage 00:00:00 [facility] Influenza Virus 2011-02-10 Completed [facility] Vaccine 00:00:00 [facility] Hep B, Adol or Pedi 2011-02-10 Completed [facility] rs[facility] of Dosage 00:00:00 [facility] PPD (TB) 2010-11-18 Completed [facility] of 00:00:00 [facility] TDAP (ADACEL) 2010-11-18 Completed [facility] of VACCINE 00:00:00 [facility] PPD (TB) 2010-11-18 Completed [facility] of 00:00:00 [facility] TDAP (ADACEL) 2010-11-18 Completed [facility] of VACCINE 00:00:00 [facility] PPD (TB) 2010-11-18 Completed [facility] 00:00:00 [facility] TDAP (ADACEL) 2010-11-18 Completed [facility] of VACCINE 00:00:00 [facility] PPD (TB) 2010-11-18 Completed [facility] 00:00:00 [facility] TDAP (ADACEL) 2010-11-18 Completed [facility] of VACCINE 00:00:00 [facility] PPD (TB) 2010-11-18 Completed [facility] 00:00:00 [facility] TDAP (ADACEL) 2010-11-18 Completed [facility] of VACCINE 00:00:00 [facility] PPD (TB) 2010-11-18 Completed [facility] 00:00:00 [facility] TDAP (ADACEL) 2010-11-18 Completed [facility] of VACCINE 00:00:00 [facility] PPD (TB) 2010-11-18 Completed [facility] 00:00:00 [facility] TDAP (ADACEL) 2010-11-18 Completed [facility] of VACCINE 00:00:00 [facility] PPD (TB) 2010-11-18 Completed [facility] 00:00:00 [facility] TDAP (ADACEL) 2010-11-18 Completed [facility] of VACCINE 00:00:00 [facility] PPD (TB) 2010-11-18 Completed [facility] 00:00:00 [facility] TDAP (ADACEL) 2010-11-18 Completed [facility] of VACCINE 00:00:00 [facility] PPD (TB) 2010-11-18 Completed [facility] of 00:00:00 [facility] TDAP (ADACEL) 2010-11-18 Completed [facility] of VACCINE 00:00:00 [facility] PPD (TB) 2010-11-18 Completed [facility] 00:00:00 [facility] TDAP (ADACEL) 2010-11-18 Completed [facility] of VACCINE 00:00:00 [facility] PPD (TB) 2010-11-18 Completed [facility] 00:00:00 [facility] TDAP (ADACEL) 2010-11-18 Completed [facility] of VACCINE 00:00:00 [facility] PPD (TB) 2010-11-18 Completed [facility] 00:00:00 [facility] TDAP (ADACEL) 2010-11-18 Completed [facility] of VACCINE 00:00:00 [facility] PPD (TB) 2010-11-18 Completed [facility] 00:00:00 [facility] TDAP (ADACEL) 2010-11-18 Completed [facility] of VACCINE 00:00:00 [facility] PPD (TB) 2010-11-18 Completed [facility] 00:00:00 [facility] TDAP (ADACEL) 2010-11-18 Completed [facility] of VACCINE 00:00:00 [facility] PPD (TB) 2010-11-18 Completed [facility] 00:00:00 [facility] TDAP (ADACEL) 2010-11-18 Completed [facility] of VACCINE 00:00:00 [facility] PPD (TB) 2010-11-18 Completed [facility] 00:00:00 [facility] TDAP (ADACEL) 2010-11-18 Completed [facility] of VACCINE 00:00:00 [facility] PPD (TB) 2010-11-18 Completed [facility] 00:00:00 [facility] TDAP (ADACEL) 2010-11-18 Completed [facility] of VACCINE 00:00:00 [facility] PPD (TB) 2010-11-18 Completed [facility] of 00:00:00 [facility] TDAP (ADACEL) 2010-11-18 Completed [facility] of VACCINE 00:00:00 [facility] PPD (TB) 2010-11-18 Completed [facility] of 00:00:00 [facility] TDAP (ADACEL) 2010-11-18 Completed [facility] of VACCINE 00:00:00 [facility] PPD (TB) 2010-11-18 Completed [facility] of 00:00:00 [facility] TDAP (ADACEL) 2010-11-18 Completed [facility] of VACCINE 00:00:00 [facility] PPD (TB) 2010-11-18 Completed [facility] of 00:00:00 [facility] TDAP (ADACEL) 2010-11-18 Completed [facility] of VACCINE 00:00:00 [facility] HEPATITIS A 2004-03-02 Completed [facility] 00:00:00 [facility] HEPATITIS A 2004-03-02 Completed [facility] 00:00:00 [facility] HEPATITIS A 2004-03-02 Completed [facility] 00:00:00 [facility] HEPATITIS A 2004-03-02 Completed [facility] 00:00:00 [facility] HEPATITIS A 2004-03-02 Completed [facility] 00:00:00 [facility] HEPATITIS A 2004-03-02 Completed [facility] 00:00:00 [facility] HEPATITIS A 2004-03-02 Completed [facility] 00:00:00 [facility] HEPATITIS A 2004-03-02 Completed [facility] 00:00:00 [facility] HEPATITIS A 2004-03-02 Completed [facility] 00:00:00 [facility] HEPATITIS A 2004-03-02 Completed [facility] 00:00:00 [facility] HEPATITIS A 2004-03-02 Completed [facility] 00:00:00 [facility] HEPATITIS A 2004-03-02 Completed [facility] 00:00:00 [facility] HEPATITIS A 2004-03-02 Completed [facility] 00:00:00 [facility] HEPATITIS A 2004-03-02 Completed [facility] 00:00:00 [facility] HEPATITIS A 2004-03-02 Completed [facility] 00:00:00 [facility] HEPATITIS A 2004-03-02 Completed [facility] 00:00:00 [facility] HEPATITIS A 2004-03-02 Completed [facility] 00:00:00 [facility] HEPATITIS A 2004-03-02 Completed [facility] 00:00:00 [facility] HEPATITIS A 2004-03-02 Completed [facility] 00:00:00 [facility] HEPATITIS A 2004-03-02 Completed [facility] 00:00:00 [facility] HEPATITIS A 2004-03-02 Completed [facility] 00:00:00 [facility] HEPATITIS A 2004-03-02 Completed [facility] 00:00:00 [facility] HEPATITIS A 2003-08-01 Completed [facility] 00:00:00 [facility] HEPATITIS A 2003-08-01 Completed [facility] 00:00:00 [facility] HEPATITIS A 2003-08-01 Completed [facility] 00:00:00 [facility] HEPATITIS A 2003-08-01 Completed [facility] 00:00:00 [facility] HEPATITIS A 2003-08-01 Completed [facility] 00:00:00 [facility] HEPATITIS A 2003-08-01 Completed [facility] 00:00:00 [facility] HEPATITIS A 2003-08-01 Completed [facility] 00:00:00 [facility] HEPATITIS A 2003-08-01 Completed [facility] 00:00:00 [facility] HEPATITIS A 2003-08-01 Completed [facility] 00:00:00 [facility] HEPATITIS A 2003-08-01 Completed [facility] 00:00:00 [facility] HEPATITIS A 2003-08-01 Completed [facility] 00:00:00 [facility] HEPATITIS A 2003-08-01 Completed [facility] 00:00:00 [facility] HEPATITIS A 2003-08-01 Completed [facility] 00:00:00 [facility] HEPATITIS A 2003-08-01 Completed [facility] of 00:00:00 [facility] HEPATITIS A 2003-08-01 Completed [facility] of 00:00:00 [facility] HEPATITIS A 2003-08-01 Completed [facility] of 00:00:00 [facility] HEPATITIS A 2003-08-01 Completed [facility] of 00:00:00 [facility] HEPATITIS A 2003-08-01 Completed [facility] of 00:00:00 [facility] HEPATITIS A 2003-08-01 Completed [facility] of 00:00:00 [facility] HEPATITIS A 2003-08-01 Completed [facility] of 00:00:00 [facility] HEPATITIS A 2003-08-01 Completed [facility] of 00:00:00 [facility] HEPATITIS A 2003-08-01 Completed [facility] 00:00:00 [facility] Pneumococcal 2001-10-04 Completed [facility] o f Polysaccharide, 00:00:00 [facility] PPSV23 (PNEUMOVAX) [facility] PPD (TB) 2001-10-04 Completed [facility] of 00:00:00 [facility] Pneumococcal 2001-10-04 Completed [facility] o f Polysaccharide, 00:00:00 [facility] PPSV23 (PNEUMOVAX) Branch PPD (TB) 2001-10-04 Completed [facility] of 00:00:00 [facility] Pneumococcal 2001-10-04 Completed [facility] o f Polysaccharide, 00:00:00 [facility] PPSV23 (PNEUMOVAX) Branch PPD (TB) 2001-10-04 Completed [facility] 00:00:00 [facility] Pneumococcal 2001-10-04 Completed [facility] o f Polysaccharide, 00:00:00 [facility] PPSV23 (PNEUMOVAX) Branch PPD (TB) 2001-10-04 Completed [facility] 00:00:00 [facility] Pneumococcal 2001-10-04 Completed [facility] o f Polysaccharide, 00:00:00 [facility] PPSV23 (PNEUMOVAX) Branch PPD (TB) 2001-10-04 Completed [facility] 00:00:00 [facility] Pneumococcal 2001-10-04 Completed [facility] o f Polysaccharide, 00:00:00 [facility] PPSV23 (PNEUMOVAX) Branch PPD (TB) 2001-10-04 Completed [facility] 00:00:00 [facility] Pneumococcal 2001-10-04 Completed [facility] o f Polysaccharide, 00:00:00 [facility] PPSV23 (PNEUMOVAX) Branch PPD (TB) 2001-10-04 Completed [facility] 00:00:00 [facility] Pneumococcal 2001-10-04 Completed [facility] o f Polysaccharide, 00:00:00 [facility] PPSV23 (PNEUMOVAX) Branch PPD (TB) 2001-10-04 Completed [facility] 00:00:00 [facility] Pneumococcal 2001-10-04 Completed [facility] o f Polysaccharide, 00:00:00 [facility] PPSV23 (PNEUMOVAX) Branch PPD (TB) 2001-10-04 Completed [facility] 00:00:00 [facility] Pneumococcal 2001-10-04 Completed [facility] o f Polysaccharide, 00:00:00 [facility] PPSV23 (PNEUMOVAX) Branch PPD (TB) 2001-10-04 Completed [facility] 00:00:00 [facility] Pneumococcal 2001-10-04 Completed University o f Polysaccharide, 00:00:00 [place] [facility] PPSV23 (PNEUMOVAX) Branch PPD (TB) 2001-10-04 Completed University of 00:00:00 [facility] Pneumococcal 2001-10-04 Completed University o f Polysaccharide, 00:00:00 [place] [facility] PPSV23 (PNEUMOVAX) Branch PPD (TB) 2001-10-04 Completed University of 00:00:00 [facility] Pneumococcal 2001-10-04 Completed University o f Polysaccharide, 00:00:00 [place] [facility] PPSV23 (PNEUMOVAX) Branch PPD (TB) 2001-10-04 Completed University of 00:00:00 [facility] Pneumococcal 2001-10-04 Completed University o f Polysaccharide, 00:00:00 [place] [facility] PPSV23 (PNEUMOVAX) Branch PPD (TB) 2001-10-04 Completed University of 00:00:00 [facility] Pneumococcal 2001-10-04 Completed University o f Polysaccharide, 00:00:00 [place] [facility] PPSV23 (PNEUMOVAX) Branch PPD (TB) 2001-10-04 Completed University of 00:00:00 [facility] Pneumococcal 2001-10-04 Completed University o f Polysaccharide, 00:00:00 [place] [facility] PPSV23 (PNEUMOVAX) Branch PPD (TB) 2001-10-04 Completed University of 00:00:00 [facility] Pneumococcal 2001-10-04 Completed University o f Polysaccharide, 00:00:00 [place] [facility] PPSV23 (PNEUMOVAX) Branch PPD (TB) 2001-10-04 Completed University of 00:00:00 [facility] Pneumococcal 2001-10-04 Completed University o f Polysaccharide, 00:00:00 [place] [facility] PPSV23 (PNEUMOVAX) Branch PPD (TB) 2001-10-04 Completed University of 00:00:00 [facility] Pneumococcal 2001-10-04 Completed University o f Polysaccharide, 00:00:00 [place] [facility] PPSV23 (PNEUMOVAX) Branch PPD (TB) 2001-10-04 Completed University of 00:00:00 [facility] Pneumococcal 2001-10-04 Completed University o f Polysaccharide, 00:00:00 [place] [facility] PPSV23 (PNEUMOVAX) Branch PPD (TB) 2001-10-04 Completed University of 00:00:00 [facility] Pneumococcal 2001-10-04 Completed University o f Polysaccharide, 00:00:00 [place] [facility] PPSV23 (PNEUMOVAX) Branch PPD (TB) 2001-10-04 Completed University of 00:00:00 [facility] Pneumococcal 2001-10-04 Completed University o f Polysaccharide, 00:00:00 [place] [facility] PPSV23 (PNEUMOVAX) Branch PPD (TB) 2001-10-04 Completed University of 00:00:00 [facility] Vital Signs Vital Name Observation Time Observation Value Comments Source Systolic blood 2022-05-10 22:00:00 159 mm[Hg] Univer sity of pressure [facility] Diastolic blood 2022-05-10 22:00:00 87 mm[Hg] Unive rsity of [facility] Heart rate 2022-05-10 22:00:00 56 /min [facility] Body temperature 2022-05-10 22:00:00 36.61 [facility] 2022-05-10 22:00:00 17 /min [facility] Oxygen saturation in 2022-05-10 22:00:00 98 /min [facility] Arterial blood by [facility] Pulse oximetry Branch Body weight 2022-05-10 16:29:00 78.926 kg [facility] BMI 2022-05-10 16:29:00 29.87 kg/m2 [facility] Systolic blood 2022-05-08 22:30:00 168 mm[Hg] Univer sity of pressure [facility] Diastolic blood 2022-05-08 22:30:00 85 mm[Hg] Unive rsity of pressure [facility] Heart rate 2022-05-08 22:30:00 68 /min [facility] Oxygen saturation in 2022-05-08 22:30:00 100 /min University of Arterial blood by [facility] Pulse oximetry Branch Body temperature 2022-05-08 22:22:00 35.89 Amina Univ ersity [facility] Respiratory rate 2022-05-08 22:22:00 14 /min Univ ersity [facility] Body weight 2022-05-08 22:22:00 78.926 kg [facility] BMI 2022-05-08 22:22:00 29.87 kg/m2 [facility] [place] [facility] Systolic blood 2022-05-07 00:00:00 149 mm[Hg] Univer sity of pressure [facility] Diastolic blood 2022-05-07 00:00:00 132 mm[Hg] Unive rsity of pressure [facility] Heart rate 2022-05-07 00:00:00 59 /min [facility] Respiratory rate 2022-05-07 00:00:00 14 /min Univ ersity of [place] [facility] Oxygen saturation in 2022-05-07 00:00:00 99 /min University of Arterial blood by [facility] Pulse oximetry Branch Body temperature 2022-05-06 20:12:00 36.5 Amina Univ ersity [facility] [place] [facility] Body height 2022-05-06 20:12:00 162.6 cm [facility] [place] [facility] Body weight 2022-05-06 20:12:00 78.926 [...] 2022-04-22 19:50:00 30.55 kg/m2 [facility] [place] [facility] Oxygen saturation in 2022-04-22 19:50:00 96 /min University of Arterial blood by [place] [employer] [facility] Pulse oximetry Branch Systolic blood 2022-03-05 15:23:00 167 mm[Hg] Univer sity of pressure [facility] Diastolic blood 2022-03-05 15:23:00 105 mm[Hg] Unive rsity of pressure [facility] Heart rate 2022-03-05 15:23:00 49 /min [facility] [place] [facility] Body temperature 2022-03-05 15:18:00 36.67 Amina Univ ers[facility] [place] [facility] Respiratory rate 2022-03-05 15:18:00 18 /min Univ ersity [facility] [place] [facility] Body height 2022-03-05 15:18:00 162.6 cm [facility] Body weight 2022-03-05 15:18:00 74.707 kg [facility] [place] [facility] BMI 2022-03-05 15:18:00 28.27 kg/m2 [...] 2022-02-16 21:41:00 17 /min Univ ers[facility] Oxygen saturation in 2022-02-16 21:41:00 98 /min University of Arterial blood by [place] [employer] [facility] Pulse oximetry Branch Body height 2022-02-11 16:02:00 162.6 cm [facility] Body weight 2022-02-11 16:02:00 79.379 kg [facility] [place] [facility] BMI 2022-02-11 16:02:00 30.04 kg/m2 [facility] [place] [facility] Systolic blood 2021-11-20 13:47:00 165 mm[Hg] Univer sity of pressure [facility] Diastolic blood 2021-11-20 13:47:00 83 mm[Hg] Unive rsity of pressure [facility] Heart rate 2021-11-20 13:47:00 58 /min [facility] [place] [facility] Body temperature 2021-11-20 13:42:00 36.39 Amina Univ ersity [facility] [place] [facility] Respiratory rate 2021-11-20 13:42:00 16 /min Univ ersity [facility] [place] [facility] [place] Body height 2021-11-20 13:42:00 162.6 cm [facility] [place] [facility] [place] Body weight 2021-11-20 13:42:00 84.369 kg [facility] [place] [facility] BMI 2021-11-20 13:42:00 31.93 kg/m2 [facility] [place] [facility] Systolic blood 2021-07-14 15:18:00 142 [...] 22:00:00 159 mm[Hg] Univer sity of pressure [facility] Diastolic blood 2022-05-10 22:00:00 87 mm[Hg] Unive rsity of pressure [facility] Heart rate 2022-05-10 22:00:00 56 /min [facility] [place] [facility] [place] Body temperature 2022-05-10 22:00:00 36.61 Amina Univ ersity [facility] [place] [facility] [place] Respiratory rate 2022-05-10 22:00:00 17 /min [facility] Oxygen saturation in 2022-05-10 22:00:00 98 /min University of Arterial blood by [facility] Pulse oximetry Branch Body weight 2022-05-10 16:29:00 78.926 kg Universi ty of [facility] BMI 2022-05-10 16:29:00 29.87 kg/m2 Universi ty [facility] Body height 2022-05-06 20:12:00 162.6 [address] [facility] Systolic blood 2022-03-05 15:23:00 167 mm[Hg] Univer sity of pressure [facility] Diastolic blood 2022-03-05 15:23:00 105 mm[Hg] Unive rsity of [facility] Heart rate 2022-03-05 15:23:00 49 /min Universi ty [facility] Body temperature 2022-03-05 15:18:00 36.67 [facility]a [facility] Respiratory rate 2022-03-05 15:18:00 18 /min [facility] Body height 2022-03-05 15:18:00 162.6 [address] [facility] Body weight 2022-03-05 15:18:00 74.[address] [facility] BMI 2022-03-05 15:18:00 28.27 kg/m2 Universi ty [facility] Oxygen saturation in 2022-02-16 21:41:00 98 /min University of Arterial blood by [facility] Pulse oximetry Branch Systolic blood 2020-12-08 15:48:00 125 mm[Hg] Method [facility] pressure Diastolic blood 2020-12-08 15:48:00 76 mm[Hg] [facility] pressure Heart rate 2020-12-08 15:48:00 64 /min [facility] Body temperature 2020-12-08 15:48:00 36.61 Amina [facility] Respiratory rate 2020-12-08 15:48:00 17 /min [facility] Body height 2020-12-08 15:48:00 162.6 cm [facility] Body weight 2020-12-08 15:48:00 98.884 kg [facility] BMI 2020-12-08 15:48:00 37.42 kg/m2 [facility] Oxygen saturation in 2020-12-08 15:48:00 97 /min [facility] [place] Arterial blood by Pulse oximetry Respitory Rate 2020-08-30 13:00:00 Memori al Marty Systolic (mm Hg) 2020-08-30 13:00:00 Caesar rial [place] Diastolic (mm Hg) 2020-08-30 13:00:00 Mem orial [place] Systolic (mm Hg) 2020-08-30 11:00:00 Caesar rial [place] Diastolic (mm Hg) 2020-08-30 11:00:00 Mem orial [place] Temperature Oral (F) 2020-08-30 11:00:00 98.4 F [facility] [place] Respitory Rate 2020-08-30 11:00:00 Memori al [place] Respitory Rate 2020-08-30 10:00:00 Memori al [place] Systolic (mm Hg) 2020-08-30 10:00:00 Caesar rial [place] Diastolic (mm Hg) 2020-08-30 10:00:00 Mem orial [place] Temperature Oral (F) 2020-08-30 00:00:00 96.9 F [facility] Temperature Oral (F) 2020-08-29 11:26:00 97.6 [facility] Height 2020-08-29 10:30:00 162.56 cm [facility] Weight 2020-08-29 10:30:00 [facility] BMI Calculated 2020-08-29 10:30:00 Darien andre [place] Procedures Procedure Date / Time Performing Clinician Source Performed URINALYSIS 2022-05-10 19:36:00 Home [facility] TROPONIN I 2022-05-10 18:34:00 Home [facility] COMP. METABOLIC PANEL 2022-05-10 18:34:00 Home Matthews [facility] ([id number]) [facility] CBC WITH DIFF 2022-05-10 18:34:00 Home [facility] XR CHEST 2 VW 2022-05-10 17:24:58 Home [facility] CONSENT/REFUSAL FOR 2022-05-10 16:26:23 Doctor Unassigned, [facility] DIAGNOSIS AND TREATMENT Corinne [facility] CONSENT/REFUSAL FOR 2022-05-10 16:26:09 Doctor Unasseunice, [facility] DIAGNOSIS AND TREATMENT Corinne [facility] URINALYSIS 2022-05-08 22:43:00 Theresa H[facility]man [facility] XR CHEST 2 VW 2022-05-06 22:56:53 Anette Olea [facility] COMP. METABOLIC PANEL 2022-05-06 22:14:00 Anette Olea [facility] ([id number]) Medical Branch CBC WITH DIFF 2022-05-06 22:14:00 Emmie [facility] COVID-19 (ID NOW RAPID 2022-05-06 22:14:00 Anette Olea [facility] TESTING) Medical Branch BASIC METABOLIC PANEL (NA, 2022-04-22 21:23:00 Paulette Gray [facility] K, CL, CO2, GLUCOSE, BUN, Medica l Branch CREATININE, CA) CBC WITH DIFF 2022-04-22 21:23:00 Paulette Gray [facility] CONSENT/REFUSAL FOR 2022-04-22 19:45:46 Doctor Unasimone, [facility] DIAGNOSIS AND TREATMENT Corinne [facility] SARS-COV-2 COVID-19 2022-03-05 16:09:27 [facility] DIMITRIS-SUCROSE VACCINE [address] [place] [address] YRS+, BIVALENT 0.3ML, IM, (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) FLU 2022-03-05 16:09:27 [facility] VACC(),65+YR,0.5 Medica l Branch ML,IM,ADJUVANTED,QUAD(FLUA D) FLU 2022-03-05 16:09:27 [facility] VACC(),65+YR,0.5 Medica l Branch ML,IM,ADJUVANTED,QUAD(FLUA D) SARS-COV-2 COVID-19 2022-03-05 16:09:27 [facility] DIMITRIS-SUCROSE VACCINE [address] [place] [address] YRS+, BIVALENT 0.3ML, IM, (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) MAGNESIUM 2022-02-15 09:41:00 Sofia Garcia [facility] BASIC METABOLIC PANEL (NA, 2022-02-15 09:41:00 Sofia Garcia [facility] K, CL, CO2, GLUCOSE, BUN, Medica l Branch CREATININE, CA) CBC WITH DIFF 2022-02-15 09:41:00 Sofia Garcia [facility] N-TERMINAL PRO-BNP 2022-02-15 09:41:00 Sofia Garcia [facility] CBC WITH DIFF 2022-02-15 09:41:00 Radha [facility] BASIC METABOLIC PANEL (NA, 2022-02-15 09:41:00 Sofia Garcia [facility] K, CL, CO2, GLUCOSE, BUN, Medica l Branch CREATININE, CA) MAGNESIUM 2022-02-15 09:41:00 [facility] 2022-02-15 09:41:00 Sofia Garcia [facility] BASIC METABOLIC PANEL (NA, 2022-02-13 09:40:00 Sofia Garcia [facility] K, CL, CO2, GLUCOSE, BUN, Medica l Branch CREATININE, CA) CBC WITH DIFF 2022-02-13 09:40:00 Radha [facility] BASIC METABOLIC PANEL (NA, 2022-02-13 09:40:00 Sofia Garcia [facility] K, CL, CO2, GLUCOSE, BUN, Medica l Branch CREATININE, CA) CBC WITH DIFF 2022-02-13 09:40:00 Radha [facility] TROPONIN I 2022-02-11 23:41:00 [facility] N-TERMINAL PRO-BNP 2022-02-11 23:41:00 Sofia Garcia [facility] TROPONIN I 2022-02-11 23:41:00 Sofia Garcia [facility] N-TERMINAL PRO-BNP 2022-02-11 23:41:00 Sofia Garcia [facility] HB ECG ROUTINE & RHYTHM 2022-02-11 22:15:36 [facility] 2022-02-11 21:26:50 [facility] (TTE) 2022-02-11 21:26:50 [facility] 2022-02-11 07:45:43 Reilly Means [facility] CONTRAST [facility] CT ABDOMEN PELVIS W 2022-02-11 07:45:43 Reilly Means [facility] RAPID INFLUENZA A/B 2022-02-11 06:54:00 Reilly Means [facility] RAPID INFLUENZA A/B 2022-02-11 06:54:00 Reilly Means [facility] URINALYSIS 2022-02-11 06:45:00 Reilly Means [facility] URINE CULTURE 2022-02-11 06:45:00 Reilly Means [facility] URINALYSIS 2022-02-11 06:45:00 Reilly Means [facility] URINE CULTURE 2022-02-11 06:45:00 Reilly Means [facility] HB ECG ROUTINE & RHYTHM 2022-02-11 05:22:08 Reilly Means [facility] HB ECG ROUTINE & RHYTHM 2022-02-11 05:22:08 Reilly Means [facility] BLOOD CULTURE SCREEN 2022-02-11 04:58:00 Reilly Means [facility] TROPONIN I 2022-02-11 04:58:00 Reilly Means [facility] COMP. METABOLIC PANEL 2022-02-11 04:58:00 Reilly Means [facility] ([id number]) [facility] CBC WITH DIFF 2022-02-11 04:58:00 Reilly Means [facility] PROTHROMBIN TIME / INR 2022-02-11 04:58:00 Reilly Means [facility] ACTIVATED PARTIAL THRMPLAS 2022-02-11 04:58:00 Reilly Means [facility] N-TERMINAL PRO-BNP 2022-02-11 04:58:00 Reilly Means [facility] LACTIC ACID WHOLE BLOOD 2022-02-11 04:58:00 Reilly Means [facility] COVID-19 (ID NOW RAPID 2022-02-11 04:58:00 Reilly Means [facility] TESTING) Medical Branch LAB ONLY COVID 2022-02-11 04:58:00 Reilly Means [facility] CBC WITH DIFF 2022-02-11 04:58:00 Reilly Means [facility] ACTIVATED PARTIAL THRMPLAS 2022-02-11 04:58:[address] [facility] PROTHROMBIN TIME / INR 2022-02-11 04:58:00 Reilly Means [facility] COVID-19 (ID NOW RAPID 2022-02-11 04:58:00 Reilly Means [facility] TESTING) Medical Branch COMP. METABOLIC PANEL 2022-02-11 04:58:00 Reilly Means [facility] ([id number]) Medical Branch TROPONIN I 2022-02-11 04:58:00 Reilly Means [facility] N-TERMINAL PRO-BNP 2022-02-11 04:58:00 Reilly Means [facility] BLOOD CULTURE SCREEN 2022-02-11 04:58:00 Reilly Means [facility] LACTIC ACID WHOLE BLOOD 2022-02-11 04:58:00 Reilly Means [facility] LAB ONLY COVID 2022-02-11 04:58:00 Reilly Means [facility] XR CHEST 1 VW 2022-02-11 04:27:42 Reilly Means [facility] XR CHEST 1 VW 2022-02-11 04:27:42 Reilly Means [facility] HOSPITAL ADMISSION 2022-02-10 05:01:00 Doctor Unassigned, [facility] Name [facility] [place] HOSPITAL ADMISSION 2022-02-10 05:01:00 Doctor Unassigned, [facility] Name Medical Branch ECG 12-LEAD 2021-07-14 15:14:00 Elan Lira [address] 2021-06-17 00:00:00 RIKY CLARK [place] GASTROINTESTINAL PANEL 2020-12-08 22:21:00 Eliseo Arce [facility] XR ABDOMEN 1 VW 2020-12-08 18:06:32 Eliseo Arce Ho spital [place] < 1 HOUR 2020-09-05 22:39:00 Eliseo Arce Ho spital SURGICAL PATHOLOGY REQUEST 2020-09-05 21:54:00 Eliseo Arce [facility] XR CHEST 1 VW PORTABLE 2020-09-05 19:55:00 [facility] DIS[facility] PATIENT 2020-09-05 17:27:[address] [facility] [place] AN ELECTIVE 2020-09-05 16:47:23 [facility] EGD, INTRAOPERATIVE 2020-09-05 16:27:00 [facility] 2020-09-05 15:04[facility]00 [facility] TIME (PTT) M. PROTHROMBIN TIME WITH INR 2020-09-05 15:04:00 [facility] Plan of Care Planned Activity Planned Date Details Comments Source Future Scheduled 2022-10-[address] [facility] [place] Test 22:40:19 malignant neoplasm of colon (procedure) [code = 749622073] Future Scheduled 2022-10-[address] [facility] [place] Test 22:40:19 malignant neoplasm of colon (procedure) [code = 572130578] Future Scheduled 2022-10-[address] [facility] [place] Test 22:40:19 malignant neoplasm of colon (procedure) [code = 288176462] Future Scheduled 2022-10-27 SHINGLES VACCINES (1 [facility] Test 22:40:19 of 2) [code = SHINGLES VACCINES (1 of 2)] Future Scheduled 2022-10-[address] [facility] [place] Test 22:40:19 SCREENING [code = BREAST CANCER SCREENING] Future Scheduled 2022-10-[address] [facility] [place] Test 22:40:19 malignant neoplasm of colon (procedure) [code = 039580812] Future Scheduled 2022-10-[address] [facility] [place] Test 22:40:19 malignant neoplasm of colon (procedure) [code = 621864433] Future Scheduled 2022-10-27 HEPATITIS B VACCINES [facility] Test 22:40:19 (1 of 3 - Risk 3-dose series) [code = HEPATITIS B VACCINES (1 of 3 - Risk 3-dose series)] Future Scheduled 2022-10-27 COVID-19 VACCINE (3 - [facility] Test 22:40:19 Pfizer series) [code = COVID-19 VACCINE (3 - Pfizer series)] Future Scheduled 2022-10-27 65+ PNEUMOCOCCAL [facility] Test 22:40:19 VACCINE (4 - PPSV23 if available, else PCV20) [code = 65+ PNEUMOCOCCAL VACCINE (4 - PPSV23 if available, else PCV20)] Future Scheduled 2022-10-27 INFLUENZA VACCINE [facility] Test 22:40:19 [code = INFLUENZA VACCINE] Future Scheduled 2022-10-[address] [facility] [place] Test 22:40:19 malignant neoplasm of colon (procedure) [code = 035499602] Future Scheduled 2022-10-[address] [facility] [place] Test 22:40:19 malignant neoplasm of colon (procedure) [code = 692848644] Future Scheduled 2022-10-[address] [facility] [place] Test 22:40:19 malignant neoplasm of colon (procedure) [code = 652826641] Future Scheduled 2022-10-27 SHINGLES VACCINES (1 [facility] Test 22:40:19 of 2) [code = SHINGLES VACCINES (1 of 2)] Future Scheduled 2022-10-[address] [facility] [place] Test 22:40:19 SCREENING [code = BREAST CANCER SCREENING] Future Scheduled 2022-10-[address] [facility] [place] Test 22:40:19 malignant neoplasm of colon (procedure) [code = 543776506] Future Scheduled 2022-10-[address] [facility] [place] Test 22:40:19 malignant neoplasm of colon (procedure) [code = 513311560] Future Scheduled 2022-10-27 HEPATITIS B VACCINES [facility] Test 22:40:19 (1 of 3 - Risk 3-dose series) [code = HEPATITIS B VACCINES (1 of 3 - Risk 3-dose series)] Future Scheduled 2022-10-27 COVID-19 VACCINE (3 - Me [facility] Test 22:40:19 Pfizer series) [code = COVID-19 VACCINE (3 - Pfizer series)] Future Scheduled 2022-10-27 65+ [facility]19 VACCINE (4 - PPSV23 if available, else PCV20) [code = 65+ PNEUMOCOCCAL VACCINE (4 - PPSV23 if available, else PCV20)] Future Scheduled 2022-10-27 INFLUENZA VACCINE [facility] Test 22:40:19 [code = INFLUENZA VACCINE] Future Scheduled 2022-09-10 SHINGLES VACCINES (1 [facility] Test 15:06:53 of 2) [code = SHINGLES VACCINES (1 of 2)] Future Scheduled 2022-09-[address] [facility] [place] Test 15:06:53 SCREENING [code = BREAST CANCER SCREENING] Future Scheduled 2022-09-10 COLONOSCOPY SCREENING [facility] Test 15:06:53 [code = COLONOSCOPY SCREENING] Future Scheduled 2022-09-10 HEPATITIS B VACCINES [facility] Test 15:06:53 (1 of 3 - Risk 3-dose series) [code = HEPATITIS B VACCINES (1 of 3 - Risk 3-dose series)] Future Scheduled 2022-09-10 COVID-19 VACCINE (3 - [facility] Test 15:06:53 Booster for Pfizer series) [code = COVID-19 VACCINE (3 - Booster for Pfizer series)] Future Scheduled 2022-09-10 65+ [facility] 15:06:[facility] VACCINE (4 - PPSV23 if available, else PCV20) [code = 65+ PNEUMOCOCCAL VACCINE (4 - PPSV23 if available, else PCV20)] Future Scheduled 2022-09-[address] [facility] Test 15:06:53 [code = INFLUENZA VACCINE] Future Scheduled 2022-09-10 SHINGLES VACCINES (1 [facility] Test 15:06:53 of 2) [code = SHINGLES VACCINES (1 of 2)] Future Scheduled 2022-09-[address] [facility] [place] Test 15:06:53 SCREENING [code = BREAST CANCER SCREENING] Future Scheduled 2022-09-10 COLONOSCOPY SCREENING [facility] Test 15:06:53 [code = COLONOSCOPY SCREENING] Future Scheduled 2022-09-10 HEPATITIS B VACCINES [facility] Test 15:06:53 (1 of 3 - Risk 3-dose series) [code = HEPATITIS B VACCINES (1 of 3 - Risk 3-dose series)] Future Scheduled 2022-09-10 COVID-19 VACCINE (3 - Me [facility] Test 15:06:53 Booster for Pfizer series) [code = COVID-19 VACCINE (3 - Booster for Pfizer series)] Future Scheduled 2022-09-10 65+ PNEUMOCOCCAL [facility] Test 15:06:53 VACCINE (4 - PPSV23 if available, else PCV20) [code = 65+ PNEUMOCOCCAL VACCINE (4 - PPSV23 if available, else PCV20)] Future Scheduled 2022-09-[address] [facility] Test 15:06:53 [code = INFLUENZA VACCINE] Future Scheduled 2022-09-10 SHINGLES VACCINES (1 [facility] Test 15:06:53 of 2) [code = SHINGLES VACCINES (1 of 2)] Future Scheduled 2022-09-[address] [facility] [place] Test 15:06:53 SCREENING [code = BREAST CANCER SCREENING] Future Scheduled 2022-09-10 COLONOSCOPY SCREENING [facility] Test 15:06:53 [code = COLONOSCOPY SCREENING] Future Scheduled 2022-09-10 HEPATITIS B VACCINES [facility] Test 15:06:53 (1 of 3 - Risk 3-dose series) [code = HEPATITIS B VACCINES (1 of 3 - Risk 3-dose series)] Future Scheduled 2022-09-10 COVID-19 VACCINE (3 - [facility] Test 15:06:53 Booster for Pfizer series) [code = COVID-19 VACCINE (3 - Booster for Pfizer series)] Future Scheduled 2022-09-10 65[facility] VACCINE (4 - PPSV23 if available, else PCV20) [code = 65+ PNEUMOCOCCAL VACCINE (4 - PPSV23 if available, else PCV20)] Future Scheduled 2022-09-[address] [facility] Test 15:06:53 [code = INFLUENZA VACCINE] Future Scheduled 2022-09-10 SHINGLES VACCINES (1 [facility] Test 15:06:53 of 2) [code = SHINGLES VACCINES (1 of 2)] Future Scheduled 2022-09-[address] [facility] [place] Test 15:06:53 SCREENING [code = BREAST CANCER SCREENING] Future Scheduled 2022-09-10 COLONOSCOPY SCREENING [facility] Test 15:06:53 [code = COLONOSCOPY SCREENING] Future Scheduled 2022-09-10 HEPATITIS B VACCINES [facility] Test 15:06:53 (1 of 3 - Risk 3-dose series) [code = HEPATITIS B VACCINES (1 of 3 - Risk 3-dose series)] Future Scheduled 2022-09-10 COVID-19 VACCINE (3 - [facility] Test 15:06:53 Booster for Pfizer series) [code = COVID-19 VACCINE (3 - Booster for Pfizer series)] Future Scheduled 2022-09-10 65+ [facility] 15:06:[facility] VACCINE (4 - PPSV23 if available, else PCV20) [code = 65+ PNEUMOCOCCAL VACCINE (4 - PPSV23 if available, else PCV20)] Future Scheduled 2022-09-[address] [facility] Test 15:06:53 [code = INFLUENZA VACCINE] Future Scheduled 2022-09-10 SHINGLES VACCINES (1 [facility] Test 15:06:53 of 2) [code = SHINGLES VACCINES (1 of 2)] Future Scheduled 2022-09-[address] [facility] [place] Test 15:06:53 SCREENING [code = BREAST CANCER SCREENING] Future Scheduled 2022-09-10 COLONOSCOPY SCREENING [facility] Test 15:06:53 [code = COLONOSCOPY SCREENING] Future Scheduled 2022-09-10 HEPATITIS B VACCINES [facility] Test 15:06:53 (1 of 3 - Risk 3-dose series) [code = HEPATITIS B VACCINES (1 of 3 - Risk 3-dose series)] Future Scheduled 2022-09-10 COVID-19 VACCINE (3 - [facility] Test 15:06:53 Booster for Pfizer series) [code = COVID-19 VACCINE (3 - Booster for Pfizer series)] Future Scheduled 2022-09-10 65+ [facility] 15:06:[facility] VACCINE (4 - PPSV23 if available, else PCV20) [code = 65+ PNEUMOCOCCAL VACCINE (4 - PPSV23 if available, else PCV20)] Future Scheduled 2022-09-10 INFLUENZA VACCINE [facility] Test 15:06:53 [code = INFLUENZA VACCINE] Future Scheduled 2022-09-10 SHINGLES VACCINES (1 [facility] Test 15:06:53 of 2) [code = SHINGLES VACCINES (1 of 2)] Future Scheduled 2022-09-[address] [facility] [place] Test 15:06:53 SCREENING [code = BREAST CANCER SCREENING] Future Scheduled 2022-09-10 COLONOSCOPY SCREENING [facility] Test 15:06:53 [code = COLONOSCOPY SCREENING] Future Scheduled 2022-09-10 HEPATITIS B VACCINES [facility] Test 15:06:53 (1 of 3 - Risk 3-dose series) [code = HEPATITIS B VACCINES (1 of 3 - Risk 3-dose series)] Future Scheduled 2022-09-10 COVID-19 VACCINE (3 - [facility] Test 15:06:53 Booster for Pfizer series) [code = COVID-19 VACCINE (3 - Booster for Pfizer series)] Future Scheduled 2022-09-10 65[facility] 15:06:[facility] VACCINE (4 - PPSV23 if available, else PCV20) [code = 65+ PNEUMOCOCCAL VACCINE (4 - PPSV23 if available, else PCV20)] Future Scheduled 2022-09-10 INFLUENZA VACCINE [facility] Test 15:06:53 [code = INFLUENZA VACCINE] Future Scheduled 2022-09-10 SHINGLES VACCINES (1 [facility] Test 15:06:53 of 2) [code = SHINGLES VACCINES (1 of 2)] Future Scheduled 2022-09-[address] [facility] [place] Test 15:06:53 SCREENING [code = BREAST CANCER SCREENING] Future Scheduled 2022-09-10 COLONOSCOPY SCREENING [facility] Test 15:06:53 [code = COLONOSCOPY SCREENING] Future Scheduled 2022-09-10 HEPATITIS B VACCINES [facility] Test 15:06:53 (1 of 3 - Risk 3-dose series) [code = HEPATITIS B VACCINES (1 of 3 - Risk 3-dose series)] Future Scheduled 2022-09-10 COVID-19 VACCINE (3 - [facility] Test 15:06:53 Booster for Pfizer series) [code = COVID-19 VACCINE (3 - Booster for Pfizer series)] Future Scheduled 2022-09-10 65+ [facility] 15:06:53 VACCINE (4 - PPSV23 if available, else PCV20) [code = 65+ PNEUMOCOCCAL VACCINE (4 - PPSV23 if available, else PCV20)] Future Scheduled 2022-09-10 INFLUENZA VACCINE [facility] Test 15:06:53 [code = INFLUENZA VACCINE] Future Scheduled 2022-09-10 SHINGLES VACCINES (1 [facility] Test 15:06:53 of 2) [code = SHINGLES VACCINES (1 of 2)] Future Scheduled 2022-09-[address] [facility] [place] [place] Test 15:06:53 SCREENING [code = BREAST CANCER SCREENING] Future Scheduled 2022-09-10 COLONOSCOPY SCREENING [facility] Test 15:06:53 [code = COLONOSCOPY SCREENING] Future Scheduled 2022-09-10 HEPATITIS B VACCINES [facility] Test 15:06:53 (1 of 3 - Risk 3-dose series) [code = HEPATITIS B VACCINES (1 of 3 - Risk 3-dose series)] Future Scheduled 2022-09-10 COVID-19 VACCINE (3 - [facility] Test 15:06:53 Booster for Pfizer series) [code = COVID-19 VACCINE (3 - Booster for Pfizer series)] Future Scheduled 2022-09-10 65+ [facility] 15:06:53 VACCINE (4 - PPSV23 if available, else PCV20) [code = 65+ PNEUMOCOCCAL VACCINE (4 - PPSV23 if available, else PCV20)] Future Scheduled 2022-09-[address] [facility] Test 15:06:53 [code = INFLUENZA VACCINE] Future Scheduled 2022-08-26 SHINGLES VACCINES (1 [facility] Test 14:43:48 of 2) [code = SHINGLES VACCINES (1 of 2)] Future Scheduled 2022-08-[address] [facility] [place] Test 14:43:48 SCREENING [code = BREAST CANCER SCREENING] Future Scheduled 2022-08-26 COLONOSCOPY SCREENING [facility] Test 14:43:48 [code = COLONOSCOPY SCREENING] Future Scheduled 2022-08-26 HEPATITIS B VACCINES [facility] Test 14:43:48 (1 of 3 - Risk 3-dose series) [code = HEPATITIS B VACCINES (1 of 3 - Risk 3-dose series)] Future Scheduled 2022-08-26 COVID-19 VACCINE (3 - [facility] Test 14:43:48 Booster for Pfizer series) [code = COVID-19 VACCINE (3 - Booster for Pfizer series)] Future Scheduled 2022-08-26 65[facility] 14:43:[facility] VACCINE (4 - PPSV23 if available, else PCV20) [code = 65+ PNEUMOCOCCAL VACCINE (4 - PPSV23 if available, else PCV20)] Future Scheduled 2022-08-[address] [facility] Test 14:43:48 [code = INFLUENZA VACCINE] Future Scheduled 2022-08-07 SHINGLES VACCINES (1 [facility] Test 23:30:11 of 2) [code = SHINGLES VACCINES (1 of 2)] Future Scheduled 2022-08-[address] [facility] [place] Test 23:30:11 SCREENING [code = BREAST CANCER SCREENING] Future Scheduled 2022-08-07 COLONOSCOPY SCREENING [facility] Test 23:30:11 [code = COLONOSCOPY SCREENING] Future Scheduled 2022-08-07 HEPATITIS B VACCINES [facility] Test 23:30:11 (1 of 3 - Risk 3-dose series) [code = HEPATITIS B VACCINES (1 of 3 - Risk 3-dose series)] Future Scheduled 2022-08-07 COVID-19 VACCINE (3 - [facility] Test 23:30:11 Booster for Pfizer series) [code = COVID-19 VACCINE (3 - Booster for Pfizer series)] Future Scheduled 2022-08-07 65+ [facility] 23:30:11 VACCINE (4 - PPSV23 if available, else PCV20) [code = 65+ PNEUMOCOCCAL VACCINE (4 - PPSV23 if available, else PCV20)] Future Scheduled 2022-08-[address] [facility] Test 23:30:11 [code = INFLUENZA VACCINE] Future Scheduled 2022-08-07 SHINGLES VACCINES (1 [facility] Test 23:30:11 of 2) [code = SHINGLES VACCINES (1 of 2)] Future Scheduled 2022-08-[address] [facility] [place] [place] Test 23:30:11 SCREENING [code = BREAST CANCER SCREENING] Future Scheduled 2022-08-07 COLONOSCOPY SCREENING [facility] Test 23:30:11 [code = COLONOSCOPY SCREENING] Future Scheduled 2022-08-07 HEPATITIS B VACCINES [facility] Test 23:30:11 (1 of 3 - Risk 3-dose series) [code = HEPATITIS B VACCINES (1 of 3 - Risk 3-dose series)] Future Scheduled 2022-08-07 COVID-19 VACCINE (3 - [facility] Test 23:30:11 Booster for Pfizer series) [code = COVID-19 VACCINE (3 - Booster for Pfizer series)] Future Scheduled 2022-08-07 65+ [facility] 23:30:11 VACCINE (4 - PPSV23 if available, else PCV20) [code = 65+ PNEUMOCOCCAL VACCINE (4 - PPSV23 if available, else PCV20)] Future Scheduled 2022-08-07 INFLUENZA VACCINE [facility] Test 23:30:11 [code = INFLUENZA VACCINE] Future Scheduled 2022-08-06 SHINGLES VACCINES (1 [facility] Test 15:48:02 of 2) [code = SHINGLES VACCINES (1 of 2)] Future Scheduled 2022-08-[address] [facility] [place] [place] Test 15:48:02 SCREENING [code = BREAST CANCER SCREENING] Future Scheduled 2022-08-06 COLONOSCOPY SCREENING [facility] Test 15:48:02 [code = COLONOSCOPY SCREENING] Future Scheduled 2022-08-06 HEPATITIS B VACCINES [facility] Test 15:48:02 (1 of 3 - Risk 3-dose series) [code = HEPATITIS B VACCINES (1 of 3 - Risk 3-dose series)] Future Scheduled 2022-08-06 COVID-19 VACCINE (3 - [facility] Test 15:48:02 Booster for Pfizer series) [code = COVID-19 VACCINE (3 - Booster for Pfizer series)] Future Scheduled 2022-08-06 65+ [facility] Test 15:48:02 VACCINE (4 - PPSV23 if available, else PCV20) [code = 65+ PNEUMOCOCCAL VACCINE (4 - PPSV23 if available, else PCV20)] Future Scheduled 2022-08-06 INFLUENZA VACCINE [facility] Test 15:48:02 [code = INFLUENZA VACCINE] Future Scheduled 2022-06-11 SHINGLES VACCINES (1 [facility] Test 16:10:12 of 2) [code = SHINGLES VACCINES (1 of 2)] Future Scheduled 2022-06-[address] [facility] [place] Test 16:10:12 SCREENING [code = BREAST CANCER SCREENING] Future Scheduled 2022-06-11 COLONOSCOPY SCREENING [facility] Test 16:10:12 [code = COLONOSCOPY SCREENING] Future Scheduled 2022-06-11 HEPATITIS B VACCINES [facility] Test 16:10:12 (1 of 3 - Risk 3-dose series) [code = HEPATITIS B VACCINES (1 of 3 - Risk 3-dose series)] Future Scheduled 2022-06-11 COVID-19 VACCINE (3 - [facility] Test 16:10:12 Booster for Pfizer series) [code = COVID-19 VACCINE (3 - Booster for Pfizer series)] Future Scheduled 2022-06-11 65[facility] 16:10:12 VACCINE (4 - PPSV23 if available, else PCV20) [code = 65+ PNEUMOCOCCAL VACCINE (4 - PPSV23 if available, else PCV20)] Future Scheduled 2022-06-11 INFLUENZA VACCINE [facility] Test 16:10:12 [code = INFLUENZA VACCINE] Future Scheduled 2022-06-11 SHINGLES VACCINES (1 [facility] Test 16:10:12 of 2) [code = SHINGLES VACCINES (1 of 2)] Future Scheduled 2022-06-11 BREAST CANCER [facility] Test 16:10:12 SCREENING [code = BREAST CANCER SCREENING] Future Scheduled 2022-06-11 COLONOSCOPY SCREENING [facility] Test 16:10:12 [code = COLONOSCOPY SCREENING] Future Scheduled 2022-06-11 HEPATITIS B VACCINES [facility] Test 16:10:12 (1 of 3 - Risk 3-dose series) [code = HEPATITIS B VACCINES (1 of 3 - Risk 3-dose series)] Future Scheduled 2022-06-11 COVID-19 VACCINE (3 - [facility] Test 16:10:12 Booster for Pfizer series) [code = COVID-19 VACCINE (3 - Booster for Pfizer series)] Future Scheduled 2022-06-11 65[facility] 16:10:12 VACCINE (4 - PPSV23 if available, else PCV20) [code = 65+ PNEUMOCOCCAL VACCINE (4 - PPSV23 if available, else PCV20)] Future Scheduled 2022-06-11 INFLUENZA VACCINE [facility] Test 16:10:12 [code = INFLUENZA VACCINE] Future Scheduled 2022-06-11 SHINGLES VACCINES (1 [facility] Test 16:10:12 of 2) [code = SHINGLES VACCINES (1 of 2)] Future Scheduled 2022-06-[address] [facility] [place] [place] Test 16:10:12 SCREENING [code = BREAST CANCER SCREENING] Future Scheduled 2022-06-11 COLONOSCOPY SCREENING [facility] Test 16:10:12 [code = COLONOSCOPY SCREENING] Future Scheduled 2022-06-11 HEPATITIS B VACCINES [facility] Test 16:10:12 (1 of 3 - Risk 3-dose series) [code = HEPATITIS B VACCINES (1 of 3 - Risk 3-dose series)] Future Scheduled 2022-06-11 COVID-19 VACCINE (3 - [facility] Test 16:10:12 Booster for Pfizer series) [code = COVID-19 VACCINE (3 - Booster for Pfizer series)] Future Scheduled 2022-06-11 65+ PNEUMOCOCCAL [facility] Test 16:10:12 VACCINE (4 - PPSV23 if available, else PCV20) [code = 65+ PNEUMOCOCCAL VACCINE (4 - PPSV23 if available, else PCV20)] Future Scheduled 2022-06-11 INFLUENZA VACCINE [facility] Test 16:10:12 [code = INFLUENZA VACCINE] Future Scheduled 2022-06-11 SHINGLES VACCINES (1 [facility] Test 16:10:12 of 2) [code = SHINGLES VACCINES (1 of 2)] Future Scheduled 2022-06-[address] [facility] [place] [place] Test 16:10:12 SCREENING [code = BREAST CANCER SCREENING] Future Scheduled 2022-06-11 COLONOSCOPY SCREENING [facility] Test 16:10:12 [code = COLONOSCOPY SCREENING] Future Scheduled 2022-06-11 HEPATITIS B VACCINES [facility] Test 16:10:12 (1 of 3 - Risk 3-dose series) [code = HEPATITIS B VACCINES (1 of 3 - Risk 3-dose series)] Future Scheduled 2022-06-11 COVID-19 VACCINE (3 - [facility] Test 16:10:12 Booster for Pfizer series) [code = COVID-19 VACCINE (3 - Booster for Pfizer series)] Future Scheduled 2022-06-11 65[facility] 16:10:12 VACCINE (4 - PPSV23 if available, else PCV20) [code = 65+ PNEUMOCOCCAL VACCINE (4 - PPSV23 if available, else PCV20)] Future Scheduled 2022-06-[address] [facility] Test 16:10:12 [code = INFLUENZA VACCINE] Future Scheduled 2022-06-11 SHINGLES VACCINES (1 [facility] Test 16:10:12 of 2) [code = SHINGLES VACCINES (1 of 2)] Future Scheduled 2022-06-[address] [facility] [place] [place] Test 16:10:12 SCREENING [code = BREAST CANCER SCREENING] Future Scheduled 2022-06-11 COLONOSCOPY SCREENING [facility] Test 16:10:12 [code = COLONOSCOPY SCREENING] Future Scheduled 2022-06-11 HEPATITIS B VACCINES [facility] Test 16:10:12 (1 of 3 - Risk 3-dose series) [code = HEPATITIS B VACCINES (1 of 3 - Risk 3-dose series)] Future Scheduled 2022-06-11 COVID-19 VACCINE (3 - [facility] Test 16:10:12 Booster for Pfizer series) [code = COVID-19 VACCINE (3 - Booster for Pfizer series)] Future Scheduled 2022-06-11 65+ [facility] 16:10:12 VACCINE (4 - PPSV23 if available, else PCV20) [code = 65+ PNEUMOCOCCAL VACCINE (4 - PPSV23 if available, else PCV20)] Future Scheduled 2022-06-11 INFLUENZA VACCINE [facility] Test 16:10:12 [code = INFLUENZA VACCINE] Future Scheduled 2022-06-11 SHINGLES VACCINES (1 [facility] Test 16:10:12 of 2) [code = SHINGLES VACCINES (1 of 2)] Future Scheduled 2022-06-[address] [facility] [place] [place] Test 16:10:12 SCREENING [code = BREAST CANCER SCREENING] Future Scheduled 2022-06-11 COLONOSCOPY SCREENING [facility] Test 16:10:12 [code = COLONOSCOPY SCREENING] Future Scheduled 2022-06-11 HEPATITIS B VACCINES [facility] Test 16:10:12 (1 of 3 - Risk 3-dose series) [code = HEPATITIS B VACCINES (1 of 3 - Risk 3-dose series)] Future Scheduled 2022-06-11 COVID-19 VACCINE (3 - [facility] Test 16:10:12 Booster for Pfizer series) [code = COVID-19 VACCINE (3 - Booster for Pfizer series)] Future Scheduled 2022-06-11 65+ [facility] 16:10:12 VACCINE (4 - PPSV23 if available, else PCV20) [code = 65+ PNEUMOCOCCAL VACCINE (4 - PPSV23 if available, else PCV20)] Future Scheduled 2022-06-[address] [facility] Test 16:10:12 [code = INFLUENZA VACCINE] Future Scheduled 2022-06-11 SHINGLES VACCINES (1 [facility] Test 16:10:12 of 2) [code = SHINGLES VACCINES (1 of 2)] Future Scheduled 2022-06-[address] [facility] [place] [place] Test 16:10:12 SCREENING [code = BREAST CANCER SCREENING] Future Scheduled 2022-06-11 COLONOSCOPY SCREENING [facility] Test 16:10:12 [code = COLONOSCOPY SCREENING] Future Scheduled 2022-06-11 HEPATITIS B VACCINES [facility] Test 16:10:12 (1 of 3 - Risk 3-dose series) [code = HEPATITIS B VACCINES (1 of 3 - Risk 3-dose series)] Future Scheduled 2022-06-11 COVID-19 VACCINE (3 - [facility] Test 16:10:12 Booster for Pfizer series) [code = COVID-19 VACCINE (3 - Booster for Pfizer series)] Future Scheduled 2022-06-11 65+ PNEUMOCOCCAL [facility] Test 16:10:12 VACCINE (4 - PPSV23 if available, else PCV20) [code = 65+ PNEUMOCOCCAL VACCINE (4 - PPSV23 if available, else PCV20)] Future Scheduled 2022-06-[address] [facility] Test 16:10:12 [code = INFLUENZA VACCINE] Future Scheduled 2022-06-11 SHINGLES VACCINES (1 [facility] Test 16:10:12 of 2) [code = SHINGLES VACCINES (1 of 2)] Future Scheduled 2022-06-[address] [facility] [place] [place] Test 16:10:12 SCREENING [code = BREAST CANCER SCREENING] Future Scheduled 2022-06-11 COLONOSCOPY SCREENING [facility] Test 16:10:12 [code = COLONOSCOPY SCREENING] Future Scheduled 2022-06-11 HEPATITIS B VACCINES [facility] Test 16:10:12 (1 of 3 - Risk 3-dose series) [code = HEPATITIS B VACCINES (1 of 3 - Risk 3-dose series)] Future Scheduled 2022-06-11 COVID-19 VACCINE (3 - [facility] Test 16:10:12 Booster for Pfizer series) [code = COVID-19 VACCINE (3 - Booster for Pfizer series)] Future Scheduled 2022-06-11 65+ [facility] 16:10:12 VACCINE (4 - PPSV23 if available, else PCV20) [code = 65+ PNEUMOCOCCAL VACCINE (4 - PPSV23 if available, else PCV20)] Future Scheduled 2022-06-11 INFLUENZA VACCINE [facility] Test 16:10:12 [code = INFLUENZA VACCINE] Future Scheduled 2022-06-11 SHINGLES VACCINES (1 [facility] Test 16:10:12 of 2) [code = SHINGLES VACCINES (1 of 2)] Future Scheduled 2022-06-[address] [facility] [place] [place] Test 16:10:12 SCREENING [code = BREAST CANCER SCREENING] Future Scheduled 2022-06-11 COLONOSCOPY SCREENING [facility] Test 16:10:12 [code = COLONOSCOPY SCREENING] Future Scheduled 2022-06-11 HEPATITIS B VACCINES [facility] Test 16:10:12 (1 of 3 - Risk 3-dose series) [code = HEPATITIS B VACCINES (1 of 3 - Risk 3-dose series)] Future Scheduled 2022-06-11 COVID-19 VACCINE (3 - [facility] Test 16:10:12 Booster for Pfizer series) [code = COVID-19 VACCINE (3 - Booster for Pfizer series)] Future Scheduled 2022-06-11 65[facility] 16:10:12 VACCINE (4 - PPSV23 if available, else PCV20) [code = 65+ PNEUMOCOCCAL VACCINE (4 - PPSV23 if available, else PCV20)] Future Scheduled 2022-06-11 INFLUENZA VACCINE [facility] Test 16:10:12 [code = INFLUENZA VACCINE] Future Scheduled 2022-05-10 SHINGLES VACCINES (1 [facility] Test 10:21:35 of 2) [code = SHINGLES VACCINES (1 of 2)] Future Scheduled 2022-05-[address] [facility] [place] [place] Test 10:21:35 SCREENING [code = BREAST CANCER SCREENING] Future Scheduled 2022-05-10 COLONOSCOPY SCREENING [facility] Test 10:21:35 [code = COLONOSCOPY SCREENING] Future Scheduled 2022-05-10 HEPATITIS B VACCINES [facility] Test 10:21:35 (1 of 3 - Risk 3-dose series) [code = HEPATITIS B VACCINES (1 of 3 - Risk 3-dose series)] Future Scheduled 2022-05-10 COVID-19 VACCINE (3 - [facility] Test 10:21:35 Booster for Pfizer series) [code = COVID-19 VACCINE (3 - Booster for Pfizer series)] Future Scheduled 2022-05-10 65+ PNEUMOCOCCAL [facility] Test 10:21:35 VACCINE (4 - PPSV23 if available, else PCV20) [code = 65+ PNEUMOCOCCAL VACCINE (4 - PPSV23 if available, else PCV20)] Future Scheduled 2022-05-10 INFLUENZA VACCINE [facility] Test 10:21:35 [code = INFLUENZA VACCINE] Future Scheduled 2022-05-10 SHINGLES VACCINES (1 [facility] Test 10:21:35 of 2) [code = SHINGLES VACCINES (1 of 2)] Future Scheduled 2022-05-[address] [facility] [place] [place] Test 10:21:35 SCREENING [code = BREAST CANCER SCREENING] Future Scheduled 2022-05-10 COLONOSCOPY SCREENING [facility] Test 10:21:35 [code = COLONOSCOPY SCREENING] Future Scheduled 2022-05-10 HEPATITIS B VACCINES [facility] Test 10:21:35 (1 of 3 - Risk 3-dose series) [code = HEPATITIS B VACCINES (1 of 3 - Risk 3-dose series)] Future Scheduled 2022-05-10 COVID-19 VACCINE (3 - [facility] Test 10:21:35 Booster for Pfizer series) [code = COVID-19 VACCINE (3 - Booster for Pfizer series)] Future Scheduled 2022-05-10 65[facility] 10:21:35 VACCINE (4 - PPSV23 if available, else PCV20) [code = 65+ PNEUMOCOCCAL VACCINE (4 - PPSV23 if available, else PCV20)] Future Scheduled 2022-05-10 INFLUENZA VACCINE [facility] Test 10:21:35 [code = INFLUENZA VACCINE] Future Scheduled 2022-05-06 SHINGLES VACCINES (1 [facility] Test 14:03:13 of 2) [code = SHINGLES VACCINES (1 of 2)] Future Scheduled 2022-05-[address] [facility] [place] [place] Test 14:03:13 SCREENING [code = BREAST CANCER SCREENING] Future Scheduled 2022-05-06 COLONOSCOPY SCREENING [facility] Test 14:03:13 [code = COLONOSCOPY SCREENING] Future Scheduled 2022-05-06 HEPATITIS B VACCINES [facility] Test 14:03:13 (1 of 3 - Risk 3-dose series) [code = HEPATITIS B VACCINES (1 of 3 - Risk 3-dose series)] Future Scheduled 2022-05-06 COVID-19 VACCINE (3 - Me [facility] Test 14:03:13 Booster for Pfizer series) [code = COVID-19 VACCINE (3 - Booster for Pfizer series)] Future Scheduled 2022-05-06 65+ PNEUMOCOCCAL [facility] Test 14:03:13 VACCINE (4 - PPSV23 if available, else PCV20) [code = 65+ PNEUMOCOCCAL VACCINE (4 - PPSV23 if available, else PCV20)] Future Scheduled 2022-05-[address] [facility] Test 14:03:13 [code = INFLUENZA VACCINE] Future Scheduled 2022-04-30 SHINGLES VACCINES (1 [facility] Test 01:07:32 of 2) [code = SHINGLES VACCINES (1 of 2)] Future Scheduled 2022-04-[address] [facility] [place] [place] Test 01:07:32 SCREENING [code = BREAST CANCER SCREENING] Future Scheduled 2022-04-30 COLONOSCOPY SCREENING [facility] Test 01:07:32 [code = COLONOSCOPY SCREENING] Future Scheduled 2022-04-30 HEPATITIS B VACCINES [facility] Test 01:07:32 (1 of 3 - Risk 3-dose series) [code = HEPATITIS B VACCINES (1 of 3 - Risk 3-dose series)] Future Scheduled 2022-04-30 COVID-19 VACCINE (3 - [facility] Test 01:07:32 Booster for Pfizer series) [code = COVID-19 VACCINE (3 - Booster for Pfizer series)] Future Scheduled 2022-04-30 65[facility] VACCINE (4 - PPSV23 if available, else PCV20) [code = 65+ PNEUMOCOCCAL VACCINE (4 - PPSV23 if available, else PCV20)] Future Scheduled 2022-04-30 INFLUENZA VACCINE [facility] Test 01:07:32 [code = INFLUENZA VACCINE] Future Scheduled 2022-04-30 SHINGLES VACCINES (1 [facility] Test 01:07:32 of 2) [code = SHINGLES VACCINES (1 of 2)] Future Scheduled 2022-04-[address] [facility] [place] [place] Test 01:07:32 SCREENING [code = BREAST CANCER SCREENING] Future Scheduled 2022-04-30 COLONOSCOPY SCREENING [facility] Test 01:07:32 [code = COLONOSCOPY SCREENING] Future Scheduled 2022-04-30 HEPATITIS B VACCINES [facility] Test 01:07:32 (1 of 3 - Risk 3-dose series) [code = HEPATITIS B VACCINES (1 of 3 - Risk 3-dose series)] Future Scheduled 2022-04-30 COVID-19 VACCINE (3 - [facility] Test 01:07:32 Booster for Pfizer series) [code = COVID-19 VACCINE (3 - Booster for Pfizer series)] Future Scheduled 2022-04-30 65+ PNEUMOCOCCAL [facility] Test 01:07:32 VACCINE (4 - PPSV23 if available, else PCV20) [code = 65+ PNEUMOCOCCAL VACCINE (4 - PPSV23 if available, else PCV20)] Future Scheduled 2022-04-30 INFLUENZA VACCINE [facility] Test 01:07:32 [code = INFLUENZA VACCINE] Future Scheduled 2022-04-30 SHINGLES VACCINES (1 [facility] Test 01:07:32 of 2) [code = SHINGLES VACCINES (1 of 2)] Future Scheduled 2022-04-[address] [facility] [place] [place] Test 01:07:32 SCREENING [code = BREAST CANCER SCREENING] Future Scheduled 2022-04-30 COLONOSCOPY SCREENING [facility] Test 01:07:32 [code = COLONOSCOPY SCREENING] Future Scheduled 2022-04-30 HEPATITIS B VACCINES [facility] Test 01:07:32 (1 of 3 - Risk 3-dose series) [code = HEPATITIS B VACCINES (1 of 3 - Risk 3-dose series)] Future Scheduled 2022-04-30 COVID-19 VACCINE (3 - [facility] Test 01:07:32 Booster for Pfizer series) [code = COVID-19 VACCINE (3 - Booster for Pfizer series)] Future Scheduled 2022-04-30 65+ [facility] 01:07:32 VACCINE (4 - PPSV23 if available, else PCV20) [code = 65+ PNEUMOCOCCAL VACCINE (4 - PPSV23 if available, else PCV20)] Future Scheduled 2022-04-30 INFLUENZA VACCINE [facility] Test 01:07:32 [code = INFLUENZA VACCINE] Future Scheduled 2022-04-25 SHINGLES VACCINES (1 [facility] Test 01:45:02 of 2) [code = SHINGLES VACCINES (1 of 2)] Future Scheduled 2022-04-[address] [facility] [place] [place] Test 01:45:02 SCREENING [code = BREAST CANCER SCREENING] Future Scheduled 2022-04-25 COLONOSCOPY SCREENING [facility] Test 01:45:02 [code = COLONOSCOPY SCREENING] Future Scheduled 2022-04-25 HEPATITIS B VACCINES [facility] Test 01:45:02 (1 of 3 - Risk 3-dose series) [code = HEPATITIS B VACCINES (1 of 3 - Risk 3-dose series)] Future Scheduled 2022-04-25 COVID-19 VACCINE (3 - [facility] Test 01:45:02 Booster for Pfizer series) [code = COVID-19 VACCINE (3 - Booster for Pfizer series)] Future Scheduled 2022-04-25 65+ [facility] 01:[facility]:02 VACCINE (4 - PPSV23 if available, else PCV20) [code = 65+ PNEUMOCOCCAL VACCINE (4 - PPSV23 if available, else PCV20)] Future Scheduled 2022-04-[address] [facility] Test 01:45:02 [code = INFLUENZA VACCINE] Future Scheduled 2022-03-25 SHINGLES VACCINES (1 [facility] Test 14:48:42 of 2) [code = SHINGLES VACCINES (1 of 2)] Future Scheduled 2022-03-[address] [facility] [place] [place] Test 14:48:42 SCREENING [code = BREAST CANCER SCREENING] Future Scheduled 2022-03-25 COLONOSCOPY SCREENING [facility] Test 14:48:42 [code = COLONOSCOPY SCREENING] Future Scheduled 2022-03-25 HEPATITIS B VACCINES [facility] Test 14:48:42 (1 of 3 - Risk 3-dose series) [code = HEPATITIS B VACCINES (1 of 3 - Risk 3-dose series)] Future Scheduled 2022-03-25 COVID-19 VACCINE (3 - [facility] Test 14:48:42 Booster for Pfizer series) [code = COVID-19 VACCINE (3 - Booster for Pfizer series)] Future Scheduled 2022-03-25 65[facility] VACCINE (4 - PPSV23 if available, else PCV20) [code = 65+ PNEUMOCOCCAL VACCINE (4 - PPSV23 if available, else PCV20)] Future Scheduled 2022-03-[address] [facility] Test 14:48:42 [code = INFLUENZA VACCINE] Future Scheduled 2022-03-25 SHINGLES VACCINES (1 [facility] Test 14:48:42 of 2) [code = SHINGLES VACCINES (1 of 2)] Future Scheduled 2022-03-[address] [facility] [place] [place] Test 14:48:42 SCREENING [code = BREAST CANCER SCREENING] Future Scheduled 2022-03-25 COLONOSCOPY SCREENING [facility] Test 14:48:42 [code = COLONOSCOPY SCREENING] Future Scheduled 2022-03-25 HEPATITIS B VACCINES [facility] Test 14:48:42 (1 of 3 - Risk 3-dose series) [code = HEPATITIS B VACCINES (1 of 3 - Risk 3-dose series)] Future Scheduled 2022-03-25 COVID-19 VACCINE (3 - [facility] Test 14:48:42 Booster for Pfizer series) [code = COVID-19 VACCINE (3 - Booster for Pfizer series)] Future Scheduled 2022-03-25 65+ PNEUMOCOCCAL [facility] Test 14:48:42 VACCINE (4 - PPSV23 if available, else PCV20) [code = 65+ PNEUMOCOCCAL VACCINE (4 - PPSV23 if available, else PCV20)] Future Scheduled 2022-03-[address] [facility] Test 14:48:42 [code = INFLUENZA VACCINE] Future Scheduled 2022-03-25 SHINGLES VACCINES (1 [facility] Test 14:48:42 of 2) [code = SHINGLES VACCINES (1 of 2)] Future Scheduled 2022-03-[address] [facility] [place] [place] Test 14:48:42 SCREENING [code = BREAST CANCER SCREENING] Future Scheduled 2022-03-25 COLONOSCOPY SCREENING [facility] Test 14:48:42 [code = COLONOSCOPY SCREENING] Future Scheduled 2022-03-25 HEPATITIS B VACCINES [facility] Test 14:48:42 (1 of 3 - Risk 3-dose series) [code = HEPATITIS B VACCINES (1 of 3 - Risk 3-dose series)] Future Scheduled 2022-03-25 COVID-19 VACCINE (3 - [facility] Test 14:48:42 Booster for Pfizer series) [code = COVID-19 VACCINE (3 - Booster for Pfizer series)] Future Scheduled 2022-03-25 65+ [facility] 14:48:42 VACCINE (4 - PPSV23 if available, else PCV20) [code = 65+ PNEUMOCOCCAL VACCINE (4 - PPSV23 if available, else PCV20)] Future Scheduled 2022-03-25 INFLUENZA VACCINE [facility] Test 14:48:42 [code = INFLUENZA VACCINE] Future Scheduled 2022-03-25 SHINGLES VACCINES (1 [facility] Test 14:48:42 of 2) [code = SHINGLES VACCINES (1 of 2)] Future Scheduled 2022-03-[address] [facility] [place] [place] Test 14:48:42 SCREENING [code = BREAST CANCER SCREENING] Future Scheduled 2022-03-25 COLONOSCOPY SCREENING [facility] Test 14:48:42 [code = COLONOSCOPY SCREENING] Future Scheduled 2022-03-25 HEPATITIS B VACCINES [facility] Test 14:48:42 (1 of 3 - Risk 3-dose series) [code = HEPATITIS B VACCINES (1 of 3 - Risk 3-dose series)] Future Scheduled 2022-03-25 COVID-19 VACCINE (3 - [facility] Test 14:48:42 Booster for Pfizer series) [code = COVID-19 VACCINE (3 - Booster for Pfizer series)] Future Scheduled 2022-03-25 65+ [facility] 14:48:42 VACCINE (4 - PPSV23 if available, else PCV20) [code = 65+ PNEUMOCOCCAL VACCINE (4 - PPSV23 if available, else PCV20)] Future Scheduled 2022-03-25 INFLUENZA VACCINE [facility] Test 14:48:42 [code = INFLUENZA VACCINE] Future Scheduled 2022-03-25 SHINGLES VACCINES (1 [facility] Test 14:48:42 of 2) [code = SHINGLES VACCINES (1 of 2)] Future Scheduled 2022-03-[address] [facility] [place] [place] Test 14:48:42 SCREENING [code = BREAST CANCER SCREENING] Future Scheduled 2022-03-25 COLONOSCOPY SCREENING [facility] Test 14:48:42 [code = COLONOSCOPY SCREENING] Future Scheduled 2022-03-25 HEPATITIS B VACCINES [facility] Test 14:48:42 (1 of 3 [...] Future Scheduled 2022-03-25 SHINGLES VACCINES (1 [facility] Test 14:48:42 of 2) [code = SHINGLES VACCINES (1 of 2)] Future Scheduled 2022-03-25 BREAST CANCER [facility] Test 14:48:42 SCREENING [code = BREAST CANCER SCREENING] Future Scheduled 2022-03-25 COLONOSCOPY SCREENING [facility] Test 14:48:42 [code = COLONOSCOPY SCREENING] Future Scheduled 2022-03-25 HEPATITIS B VACCINES [facility] Test 14:48:42 (1 of 3 - [...] Future Scheduled 2022-03-25 SHINGLES VACCINES (1 [facility] Test 14:48:42 of 2) [code = SHINGLES VACCINES (1 of 2)] Future Scheduled 2022-03-[address] [facility] [place] [place] Test 14:48:42 SCREENING [code = BREAST CANCER SCREENING] Future Scheduled 2022-03-25 COLONOSCOPY SCREENING [facility] Test 14:48:42 [code = COLONOSCOPY SCREENING] Future Scheduled 2022-03-25 HEPATITIS B VACCINES [facility] Test 14:48:42 (1 of 3 - Risk 3-dose series) [code = HEPATITIS B VACCINES (1 of 3 - Risk 3-dose series)] Future Scheduled 2022-03-25 COVID-19 VACCINE (3 - [facility] Test 14:48:42 Booster for Pfizer series) [code = COVID-19 VACCINE (3 - Booster for Pfizer series)] Future Scheduled 2022-03-25 65+ PNEUMOCOCCAL [facility] Test 14:48:42 VACCINE (4 - PPSV23 if available, else PCV20) [code = 65+ PNEUMOCOCCAL VACCINE (4 - PPSV23 if available, else PCV20)] Future Scheduled 2022-03-25 INFLUENZA VACCINE [facility] Test 14:48:42 [code = INFLUENZA VACCINE] Future Scheduled 2022-03-25 SHINGLES VACCINES (1 [facility] Test 14:48:42 of 2) [code = SHINGLES VACCINES (1 of 2)] Future Scheduled 2022-03-[address] [facility] [place] [place] Test 14:48:42 SCREENING [code = BREAST CANCER SCREENING] Future Scheduled 2022-03-25 COLONOSCOPY SCREENING [facility] Test 14:48:42 [code = COLONOSCOPY SCREENING] Future Scheduled 2022-03-25 HEPATITIS B VACCINES [facility] Test 14:48:42 (1 of 3 - Risk 3-dose series) [code = HEPATITIS B VACCINES (1 of 3 - Risk 3-dose series)] Future Scheduled 2022-03-25 COVID-19 VACCINE (3 - [facility] Test 14:48:42 Booster for Pfizer series) [code = COVID-19 VACCINE (3 - Booster for Pfizer series)] Future Scheduled 2022-03-25 65[facility] 14:48[facility] VACCINE (4 - PPSV23 if available, else PCV20) [code = 65+ PNEUMOCOCCAL VACCINE (4 - PPSV23 if available, else PCV20)] Future Scheduled 2022-03-[address] [facility] Test 14:48:42 [code = INFLUENZA VACCINE] Future Scheduled 2022-03-25 SHINGLES VACCINES (1 [facility] Test 14:48:42 of 2) [code = SHINGLES VACCINES (1 of 2)] Future Scheduled 2022-03-[address] [facility] [place] [place] Test 14:48:42 SCREENING [code = BREAST CANCER SCREENING] Future Scheduled 2022-03-25 COLONOSCOPY SCREENING [facility] Test 14:48:42 [code = COLONOSCOPY SCREENING] Future Scheduled 2022-03-25 HEPATITIS B VACCINES [facility] Test 14:48:42 (1 of 3 - Risk 3-dose series) [code = HEPATITIS B VACCINES (1 of 3 - Risk 3-dose series)] Future Scheduled 2022-03-25 COVID-19 VACCINE (3 - [facility] Test 14:48:42 Booster for Pfizer series) [code = COVID-19 VACCINE (3 - Booster for Pfizer series)] Future Scheduled 2022-03-25 65+ PNEUMOCOCCAL [facility] Test 14:48:42 VACCINE (4 - PPSV23 if available, else PCV20) [code = 65+ PNEUMOCOCCAL VACCINE (4 - PPSV23 if available, else PCV20)] Future Scheduled 2022-03-[address] [facility] Test 14:48:42 [code = INFLUENZA VACCINE] Future Scheduled 2022-03-04 SHINGLES VACCINES (1 [facility] Test 14:03:57 of 2) [code = SHINGLES VACCINES (1 of 2)] Future Scheduled 2022-03-[address] [facility] [place] [place] Test 14:03:57 SCREENING [code = BREAST CANCER SCREENING] Future Scheduled 2022-03-04 COLONOSCOPY SCREENING [facility] Test 14:03:57 [code = COLONOSCOPY SCREENING] Future Scheduled 2022-03-04 HEPATITIS B VACCINES [facility] Test 14:03:57 (1 of 3 - Risk 3-dose series) [code = HEPATITIS B VACCINES (1 of 3 - Risk 3-dose series)] Future Scheduled 2022-03-04 COVID-19 VACCINE (3 - [facility] Test 14:03:57 Booster for Pfizer series) [code = COVID-19 VACCINE (3 - Booster for Pfizer series)] Future Scheduled 2022-03-04 65[facility] 14:03:57 VACCINE (4 - PPSV23 if available, else PCV20) [code = 65+ PNEUMOCOCCAL VACCINE (4 - PPSV23 if available, else PCV20)] Future Scheduled 2022-03-[address] [facility] Test 14:03:57 [code = INFLUENZA VACCINE] Future Scheduled 2022-03-04 SHINGLES VACCINES (1 [facility] Test 14:03:57 of 2) [code = SHINGLES VACCINES (1 of 2)] Future Scheduled 2022-03-[address] [facility] [place] [place] Test 14:03:57 SCREENING [code = BREAST CANCER SCREENING] Future Scheduled 2022-03-04 COLONOSCOPY SCREENING [facility] Test 14:03:57 [code = COLONOSCOPY SCREENING] Future Scheduled 2022-03-04 HEPATITIS B VACCINES [facility] Test 14:03:57 (1 of 3 - Risk 3-dose series) [code = HEPATITIS B VACCINES (1 of 3 - Risk 3-dose series)] Future Scheduled 2022-03-04 COVID-19 VACCINE (3 - [facility] Test 14:03:57 Booster for Pfizer series) [code = COVID-19 VACCINE (3 - Booster for Pfizer series)] Future Scheduled 2022-03-04 65+ PNEUMOCOCCAL [facility] Test 14:03:57 VACCINE (4 - PPSV23 if available, else PCV20) [code = 65+ PNEUMOCOCCAL VACCINE (4 - PPSV23 if available, else PCV20)] Future Scheduled 2022-03-[address] [facility] Test 14:03:57 [code = INFLUENZA VACCINE] Future Scheduled 2022-03-04 SHINGLES VACCINES (1 [facility] Test 14:03:57 of 2) [code = SHINGLES VACCINES (1 of 2)] Future Scheduled 2022-03-[address] [facility] [place] [place] Test 14:03:57 SCREENING [code = BREAST CANCER SCREENING] Future Scheduled 2022-03-04 COLONOSCOPY SCREENING [facility] Test 14:03:57 [code = COLONOSCOPY SCREENING] Future Scheduled 2022-03-04 HEPATITIS B VACCINES [facility] Test 14:03:57 (1 of 3 - Risk 3-dose series) [code = HEPATITIS B VACCINES (1 of 3 - Risk 3-dose series)] Future Scheduled 2022-03-04 COVID-19 VACCINE (3 - [facility] Test 14:03:57 Booster for Pfizer series) [code = COVID-19 VACCINE (3 - Booster for Pfizer series)] Future Scheduled 2022-03-04 65[facility] 14:03:[facility] VACCINE (4 - PPSV23 if available, else PCV20) [code = 65+ PNEUMOCOCCAL VACCINE (4 - PPSV23 if available, else PCV20)] Future Scheduled 2022-03-04 INFLUENZA VACCINE [facility] Test 14:03:57 [code = INFLUENZA VACCINE] Future Scheduled 2022-03-04 SHINGLES VACCINES (1 [facility] Test 14:03:57 of 2) [code = SHINGLES VACCINES (1 of 2)] Future Scheduled 2022-03-[address] [facility] [place] [place] Test 14:03:57 SCREENING [code = BREAST CANCER SCREENING] Future Scheduled 2022-03-04 COLONOSCOPY SCREENING [facility] Test 14:03:57 [code = COLONOSCOPY SCREENING] Future Scheduled 2022-03-04 HEPATITIS B VACCINES [facility] Test 14:03:57 (1 of 3 - Risk 3-dose series) [code = HEPATITIS B VACCINES (1 of 3 - Risk 3-dose series)] Future Scheduled 2022-03-04 COVID-19 VACCINE (3 - [facility] Test 14:03:57 Booster for Pfizer series) [code = COVID-19 VACCINE (3 - Booster for Pfizer series)] Future Scheduled 2022-03-04 65+ PNEUMOCOCCAL [facility] Test 14:03:57 VACCINE (4 - PPSV23 if available, else PCV20) [code = 65+ PNEUMOCOCCAL VACCINE (4 - PPSV23 if available, else PCV20)] Future Scheduled 2022-03-[address] [facility] Test 14:03:57 [code = INFLUENZA VACCINE] Future Scheduled 2022-02-11 SHINGLES VACCINES (1 [facility] Test 13:39:12 of 2) [code = SHINGLES VACCINES (1 of 2)] Future Scheduled 2022-02-[address] [facility] [place] [place] Test 13:39:12 SCREENING [code = BREAST CANCER SCREENING] Future Scheduled 2022-02-11 COLONOSCOPY SCREENING [facility] Test 13:39:12 [code = COLONOSCOPY SCREENING] Future Scheduled 2022-02-11 HEPATITIS B VACCINES [facility] Test 13:39:12 (1 of 3 - Risk 3-dose series) [code = HEPATITIS B VACCINES (1 of 3 - Risk 3-dose series)] Future Scheduled 2022-02-11 COVID-19 VACCINE (3 - [facility] Test 13:39:12 Booster for Pfizer series) [code = COVID-19 VACCINE (3 - Booster for Pfizer series)] Future Scheduled 2022-02-11 65+ PNEUMOCOCCAL [facility] Test 13:39:12 VACCINE (4 - PPSV23 or PCV20) [code = 65+ PNEUMOCOCCAL VACCINE (4 - PPSV23 or PCV20)] Future Scheduled 2022-02-[address] [facility] Test 13:39:12 [code = INFLUENZA VACCINE] Future Scheduled 2022-01-29 SHINGLES VACCINES (1 [facility] Test 14:07:20 of 2) [code = SHINGLES VACCINES (1 of 2)] Future Scheduled 2022-01-[address] [facility] [place] [place] Test 14:07:20 SCREENING [code = BREAST CANCER SCREENING] Future Scheduled 2022-01-29 COLONOSCOPY SCREENING [facility] Test 14:07:20 [code = COLONOSCOPY SCREENING] Future Scheduled 2022-01-29 HEPATITIS B VACCINES [facility] Test 14:07:20 (1 of 3 - Risk 3-dose series) [code = HEPATITIS B VACCINES (1 of 3 - Risk 3-dose series)] Future Scheduled 2022-01-29 COVID-19 VACCINE (3 - [facility] Test 14:07:20 Booster for Pfizer series) [code = COVID-19 VACCINE (3 - Booster for Pfizer series)] Future Scheduled 2022-01-29 65+ PNEUMOCOCCAL [facility] Test 14:07:20 VACCINE (4 - PPSV23 or PCV20) [code = 65+ PNEUMOCOCCAL VACCINE (4 - PPSV23 or PCV20)] Future Scheduled 2022-01-[address] [facility] Test 14:07:20 [code = INFLUENZA VACCINE] Future Scheduled 2022-01-29 SHINGLES VACCINES (1 [facility] Test 14:07:20 of 2) [code = SHINGLES VACCINES (1 of 2)] Future Scheduled 2022-01-[address] [facility] [place] [place] Test 14:07:20 SCREENING [code = BREAST CANCER SCREENING] Future Scheduled 2022-01-29 COLONOSCOPY SCREENING [facility] Test 14:07:20 [code = COLONOSCOPY SCREENING] Future Scheduled 2022-01-29 HEPATITIS B VACCINES [facility] Test 14:07:20 (1 of 3 - Risk 3-dose series) [code = HEPATITIS B VACCINES (1 of 3 - Risk 3-dose series)] Future Scheduled 2022-01-29 COVID-19 VACCINE (3 - [facility] Test 14:07:20 Booster for Pfizer series) [code = COVID-19 VACCINE (3 - Booster for Pfizer series)] Future Scheduled 2022-01-29 65[facility]:07[facility] VACCINE (4 - PPSV23 or PCV20) [code = 65+ PNEUMOCOCCAL VACCINE (4 - PPSV23 or PCV20)] Future Scheduled 2022-01-[address] [facility] Test 14:07:20 [code = INFLUENZA VACCINE] Future Scheduled 2022-01-29 SHINGLES VACCINES (1 [facility] Test 14:07:20 of 2) [code = SHINGLES VACCINES (1 of 2)] Future Scheduled 2022-01-[address] [facility] [place] [place] Test 14:07:20 SCREENING [code = BREAST CANCER SCREENING] Future Scheduled 2022-01-29 COLONOSCOPY SCREENING [facility] Test 14:07:20 [code = COLONOSCOPY SCREENING] Future Scheduled 2022-01-29 HEPATITIS B VACCINES [facility] Test 14:07:20 (1 of 3 - Risk 3-dose series) [code = HEPATITIS B VACCINES (1 of 3 - Risk 3-dose series)] Future Scheduled 2022-01-29 COVID-19 VACCINE (3 - [facility] Test 14:07:20 Booster for Pfizer series) [...] SHINGLES VACCINES (1 [facility] Test 14:07:20 of 2) [code = SHINGLES VACCINES (1 of 2)] Future Scheduled 2022-01-[address] [facility] [place] [place] Test 14:07:20 SCREENING [code = BREAST CANCER SCREENING] Future Scheduled 2022-01-29 COLONOSCOPY SCREENING [facility] Test 14:07:20 [code = COLONOSCOPY SCREENING] Future Scheduled 2022-01-29 HEPATITIS B VACCINES [facility] Test 14:07:20 (1 of 3 - Risk 3-dose series) [code = HEPATITIS B VACCINES (1 of 3 - Risk 3-dose series)] Future Scheduled 2022-01-29 COVID-19 VACCINE (3 - [facility] Test 14:07:20 Booster for Pfizer series) [code = COVID-19 VACCINE (3 - Booster for Pfizer series)] Future Scheduled 2022-01-29 65+ PNEUMOCOCCAL [facility] Test 14:07:20 VACCINE (4 - PPSV23 or PCV20) [code = 65+ PNEUMOCOCCAL VACCINE (4 - PPSV23 or PCV20)] Future Scheduled 2022-01-[address] [facility] Test 14:07:20 [code = INFLUENZA VACCINE] Future Scheduled 2022-01-20 SHINGLES VACCINES (1 [facility] Test 06:12:34 of 2) [code = SHINGLES VACCINES (1 of 2)] Future Scheduled 2022-01-[address] [facility] [place] Test 06:12:34 malignant neoplasm of cervix (procedure) [code = 607588988] Future Scheduled 2022-01-[address] [facility] [place] Test 06:12:34 SCREENING [code = BREAST CANCER SCREENING] Future Scheduled 2022-01-20 COLONOSCOPY SCREENING [facility] Test 06:12:34 [code = COLONOSCOPY SCREENING] Future Scheduled 2022-01-20 HEPATITIS B VACCINES [facility] Test 06:12:34 (1 of 3 - Risk 3-dose series) [code = HEPATITIS B VACCINES (1 of 3 - Risk 3-dose series)] Future Scheduled 2022-01-20 COVID-19 VACCINE (3 - [facility] Test 06:12:34 Booster for Pfizer series) [code = COVID-19 VACCINE (3 - Booster for Pfizer series)] Future Scheduled 2022-01-20 65+ PNEUMOCOCCAL [facility] Test 06:12:34 VACCINE (4 - PPSV23 or PCV20) [code = 65+ PNEUMOCOCCAL VACCINE (4 - PPSV23 or PCV20)] Future Scheduled 2022-01-[address] [facility] Test 06:12:34 [code = INFLUENZA VACCINE] Future Scheduled 2022-01-16 SHINGLES VACCINES (1 [facility] Test 12:09:25 of 2) [code = SHINGLES VACCINES (1 of 2)] Future Scheduled 2022-01-[address] [facility] [place] Test 12:09:25 malignant neoplasm of cervix (procedure) [code = 109496155] Future Scheduled 2022-01-[address] [facility] Test 12:09:25 SCREENING [code = BREAST CANCER SCREENING] Future Scheduled 2022-01-16 COLONOSCOPY SCREENING [facility] Test 12:09:25 [code = COLONOSCOPY SCREENING] Future Scheduled 2022-01-16 HEPATITIS B VACCINES [facility] Test 12:09:25 (1 of 3 - Risk 3-dose series) [code = HEPATITIS B VACCINES (1 of 3 - Risk 3-dose series)] Future Scheduled 2022-01-16 COVID-19 VACCINE (3 - [facility] Test 12:09:25 Booster for Pfizer series) [code = COVID-19 VACCINE (3 - Booster for Pfizer series)] Future Scheduled 2022-01-16 65+ [facility] 12:09:25 VACCINE (4 - PPSV23 or PCV20) [code = 65+ PNEUMOCOCCAL VACCINE (4 - PPSV23 or PCV20)] Future Scheduled 2022-01-[address] [facility] Test 12:09:25 [code = INFLUENZA VACCINE] Future Scheduled 2022-01-14 SHINGLES VACCINES (1 [facility] Test 04:11:46 of 2) [code = SHINGLES VACCINES (1 of 2)] Future Scheduled 2022-01-[address] [facility] Test 04:11:46 malignant neoplasm of cervix (procedure) [code = 978901014] Future Scheduled 2022-01-[address] [facility] Test 04:11:46 SCREENING [code = BREAST CANCER SCREENING] Future Scheduled 2022-01-14 COLONOSCOPY SCREENING [facility] Test 04:11:46 [code = COLONOSCOPY SCREENING] Future Scheduled 2022-01-14 HEPATITIS B VACCINES [facility] Test 04:11:46 (1 of 3 - Risk 3-dose series) [code = HEPATITIS B VACCINES (1 of 3 - Risk 3-dose series)] Future Scheduled 2022-01-14 COVID-19 VACCINE (3 - [facility] Test 04:11:46 Booster for Pfizer series) [code = COVID-19 VACCINE (3 - Booster for Pfizer series)] Future Scheduled 2022-01-14 65+ PNEUMOCOCCAL [facility] [place] [facility] Test 04:11:46 VACCINE (4 - PPSV23 or PCV20) [code = 65+ PNEUMOCOCCAL VACCINE (4 - PPSV23 or PCV20)] Future Scheduled 2022-01-[address] [facility] Test 04:11:46 [code = INFLUENZA VACCINE] Future Scheduled 2021-08-[address] [facility] Test 13:02:23 malignant neoplasm of cervix (procedure) [code = 512430897] Future Scheduled 2021-08-[address] [facility] Test 13:02:23 SCREENING [code = BREAST CANCER SCREENING] Future Scheduled 2021-08-26 COLONOSCOPY SCREENING [facility] Test 13:02:23 [code = COLONOSCOPY SCREENING] Future Scheduled 2021-08-[address] [facility] [place] Test 13:02:23 malignant neoplasm of lung (procedure) [code = 665534469] Future Scheduled 2021-08-26 SHINGLES VACCINES (#1) [facility] Test 13:02:23 [code = SHINGLES VACCINES (#1)] Future Scheduled 2021-08-26 COVID-19 VACCINE (3 - [facility] Test 13:02:23 Pfizer risk 4-dose series) [code = COVID-19 VACCINE (3 - Pfizer risk 4-dose series)] Future Scheduled 2021-08-26 65+ PNEUMOCOCCAL [facility] Test 13:02:23 VACCINE (4 of 4 - PPSV23) [code = 65+ PNEUMOCOCCAL VACCINE (4 of 4 - PPSV23)] Future Scheduled 2021-08-[address] [facility] Test 13:02:23 [code = INFLUENZA VACCINE] Encounters Start End Encounter Admission Attending Care Care Encounter Source Date/Time Date/Time Type Type Clinicians Facility Department ID 2022-02-18 Outpatient W [facility] [id number] [place] 14:30:[address] [place] [address] 2021-07-14 Outpatient JENNY 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 [id number] [place] 09:33:[facility] 2021-06-02 Outpatient HEMATPOUR, 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 [id number] [place] 13:58:59 [facility] 2021-04-28 Outpatient HEMATPOUR, 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 [id number] [place] 11:21:22 [facility]AYAR [facility]alt [facility] 2021-03-20 Emergency [facility] [id number] Univers 16:07:40 [facility] 2020-12-12 Outpatient HEMATPOUR, 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 [id number] [place] 08:16:46 KHASHAYAR [facility]alt [facility] 2020-10-31 Outpatient HEMATPOUR, 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 [id number] [place] 09:44:50 [facility]HASHAYAR [facility]alt [facility] 2020-09-30 Outpatient HEMATPOUR, 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 [id number] [place] 13:16:03 [facility]AYAR [facility]alt [facility] 2022-11-02 2022-11-02 Outpatient R [facility] [id number] Univers 08:30:00 08:30:00 [facility] 2022-10-27 2022-10-27 Telephone [place], UNIVERSIT 1.2.840.114 [id number] Univers 00:00:00 00:00:00 [facility] 350.1.13.10 i [place] [id number] [address] 2022-10-06 2022-10-06 Outpatient R [facility] [id number] Univers 09:30:00 09:30:00 [facility] 2022-09-26 2022-09-26 Refill [facility], UNIVERSIT 1.2.600.943 [id number] Univers 00:00:00 00:00:00 [facility] 350.1.13.10 i [place] [id number] [address] 2022-09-03 2022-09-03 Outpatient R [facility] [id number] Univers 11:00:00 11:00:00 [facility] 2022-08-24 2022-08-24 Refill [place], 1.2.840.0 [id number] Univers 00:00:00 00:00:00 Eloy 93929.1.1 ity of 3.104.2.7 [place] .3.710927 Medica l .8 Branch 2022-05-20 2022-05-20 Telephone [facility] 1.2.840.114 [id number] Univers 00:00:00 00:00:00 [facility] 350.1.13.10 i [place] [id number] [address] 2022-05-10 2022-05-10 Emergency [facility] [id number] Univers 10:30:00 16:31:[address] [facility] 2022-05-10 2022-05-10 Emergency [place], TRAUMA 1.2.840.114 [id number] Univers 10:30:00 16:31:00 [facility] 350.1.13.10 [place] [id number] [facility] 014 Branch 2022-05-10 2022-05-10 Telephone [facility] 1.2.840.114 [id number] Univers 00:00:00 00:00:00 [facility] 350.1.13.10 i [place] [id number] [address] 2022-05-08 2022-05-08 Emergency [facility] [id number] Univers 16:18:00 18:42:[address] [facility] 2022-05-08 2022-05-08 Emergency [facility] 1.2.840.114 [id number] Univers 16:18:00 18:42:00 Theresa BULLOCK 350.1.13.10 [place] [id number] [address] 2022-05-07 2022-05-07 Telephone [facility] 1.2.840.114 [id number] Univers 00:00:00 00:00:00 [facility] 350.1.13.10 i [place] [id number] [address] 2022-05-06 2022-05-06 Emergency X EMMIE [facility] ERT [id number] Univers 14:13:00 18:19:[address] [facility] 2022-05-06 2022-05-06 [facility] 1.2.294.370 [id number] Univers 14:13:00 18:19:00 Anette BULLOCK 350.1.13.10 [place] of [place] 4.2.7.2.686 [facility] [id number] [address] 2022-05-06 2022-05-06 Telephone RonaldJOSÉ ANTONIO 1.2.840.114 [id number] Univers 00:00:00 00:00:00 [facility] 350.1.13.10 i [place] [id number] [address] 2022-04-22 2022-04-22 Emergency [facility] [id number] Univers 13:55:00 17:00:00 PAULETTE [facility] 2022-04-22 2022-04-22 Emergency [facility] 1.2.074.492 [id number] Univers 13:55:00 17:00:00 [facility] 350.1.13.10 i [place] of [place] 4.2.7.2.686 [facility] [id number] [address] 2022-04-07 2022-04-07 Outpatient R ADRIAN, [facility] [id number] Univers 20:40:00 20:40:[address] [facility] 2022-04-07 2022-04-07 Telephone Devin 1.2.840.7 [id number] Univers 00:00:00 00:00:00 Robbi Hairston 46713.1.1 i ty of 3.104.2.7 [place] .3.091861 Medica l Chelsie8 [place] 2022-03-05 2022-03-05 Digital Account Manager Santiago Cardenas 1.2.840.1 [id number] Univers 13:45:00 14:00:00 Visit [facility] 69692.1.1 ity of 3.104.2.7 [place] .3.453537 Medica l .8 [place] 2022-03-05 2022-03-05 Office [facility] 1.2.040.323 [id number] Univers 13:00:00 13:30:00 Visit Santiago [facility] 350.1.13.10 i ty of [place] [id number] [facility] porfirio 089 [place] 2022-03-05 2022-03-05 Outpatient R [facility] [id number] Univers 13:00:00 13:00:00 [facility] 2022-02-26 2022-02-26 Outpatient R [facility] [id number] Univers 08:30:00 08:30:00 [facility] 2022-02-26 2022-02-26 Outpatient R [facility] [id number] Univers 08:30:00 08:30:00 [facility] 2022-02-17 2022-02-17 Transition Stevo, 1.2.840.7 [id number] Univers 00:00:00 00:00:00 of Care Isaias Arredondo 69456.1.1 it y of 3.104.2.7 [place] .3.970000 Medica l .8 [place] 2022-02-10 2022-02-16 Inpatient X [facility] [id number] Univers 22:59:00 19:27:[address] [facility] 2022-02-10 2022-02-16 Hospital Reilly Means 1.2.840.1 [id number] Univers 22:59:00 19:27:00 Encounter Ofe Shields 04973.1.1 ity of [place] 3.104.2.7 [place] .3.060124 Medica l .8 [place] 2022-02-11 2022-02-11 Telephone [place], 1.2.840.3 [id number] Univers 00:00:00 00:00:00 Santiago 75497.1.1 ity of 3.104.2.7 [place] .3.977514 Medica l .8 [place] 2022-02-10 2022-02-10 Travel 1.2.840.1 1.2.013.683 [id number] Univers 00:00:00 00:00:00 22697.1.1 350.1.13.10 ity of 3.104.2.7 4.2.7.3.698 [place] .3.952708 084.8 Medica l .8 Branch 2022-01-30 2022-01-30 Telephone [place], 1.2.840.4 [id number] Univers 00:00:00 00:00:00 Santiago 80830.1.1 ity of 3.104.2.7 [place] .3.715803 Medica l .8 [place] 2022-01-06 2022-01-06 Orders Doctor FERMIN 1.2.840.114 [id number] Univers 00:00:00 00:00:00 Only Unassigned, JACKELINE 350.1.13.10 ity of [place] [facility] 4.2.7.2.686 Yomi as [id number] [address] 2021-12-25 2021-12-25 Orders Doctor FERMIN 1.2.840.114 [id number] Univers 00:00:00 00:00:00 Only Unassigned, JACKELINE 350.1.13.10 ity of [place] [facility] 4.2.7.2.686 Yomi as [id number] [address] 2021-12-12 2021-12-13 Emergency X Bill COLES [facility] ERT [id number] Univers 23:53:00 01:52:00 ity of [facility] 2021-12-12 2021-12-13 Emergency Bill Coles [facility] 1.2.840.114 [id number] Univers 23:53:00 01:52:00 Kiersten BULLOCK 350.1.13.10 [place] [id number] [facility] 084 Branch 2021-11-20 2021-11-20 Digital Account Manager [facility] UNIVERSIT 1.2.840.114 [id number] Univers 09:45:00 10:00:00 [facility] 350.1.13.10 it[place] of [place] 487.6508802 [facility] 316 Branch 2021-11-20 2021-11-20 Office [facility] 1.2.831.454 [id number] Univers 08:30:00 09:00:00 Visit [facility] 350.1.13.10 i ty of [place] [id number] [facility] 089 [place] 2021-11-20 2021-11-20 Outpatient R [facility] [id number] Univers 08:30:00 08:30:00 [facility] 2021-11-20 2021-11-20 Outpatient R [facility] [id number] Univers 08:30:00 08:30:00 [facility] 2021-11-20 2021-11-20 Outpatient R [facility] [id number] Univers 08:30:00 08:30:00 [facility] 2021-11-20 2021-11-20 Outpatient R [facility] [id number] Univers 08:30:00 08:30:00 [facility] 2021-10-24 2021-10-24 Emergency X WALKER [facility] ERT [id number] Univers 16:27:00 22:26:00 [facility] 2021-10-24 2021-10-24 Emergency X WALKER [facility] ERT [id number] Univers 16:27:00 22:26:00 [facility] 2021-10-24 2021-10-24 Emergency Reilly Means [facility] 1.2.840. 114 [id number] Univers 16:27:00 22:26:00 Charity Mcallister [facility] 350.1.13.10 ity [facility] 4.2.7.2.686 [facility] [id number] [address] 2021-10-23 2021-10-24 [facility] ERT [id number] Univers 20:22:00 02:57:[address] [facility] 2021-10-23 2021-10-24 Emergency [facility] 1.2.698.074 [id number] Univers 20:22:00 02:57:00 [facility] 350.1.13.10 [place] of [place] 4.2.7.2.686 [facility] [id number] [address] 2021-09-07 2021-09-07 Outpatient R SELF, [facility] [id number] Univers 08:00:00 08:00:00 GADIEL familia vogel clark [facility] 2021-09-07 2021-09-07 Outpatient R SELF, [facility] [id number] Univers 08:00:00 08:00:00 GADIEL rodas [facility] 2021-08-21 2021-08-21 Outpatient R EAST, [facility] [id number] Univers 10:45:00 10:45:[address] [facility] 2021-08-21 2021-08-21 Digital Account Manager Santiago Cardenas 1.2.840.1 [id number] Univers 10:45:00 10:45:00 Visit [facility] 11964.1.1 ity of 3.104.2.7 [place] .3.253765 Medica l .8 [place] 2021-08-21 2021-08-21 Office Ronald, 1.2.840.1 [id number] Univers 08:30:00 09:00:00 Visit Santiago 47988.1.1 ity of 3.104.2.7 [place] .3.783010 Medica l .8 [place] 2021-08-21 2021-08-21 Office [facility], UNIVERSIT 1.2.118.041 [id number] Univers 08:30:00 09:00:00 Visit Santiago [facility] 350.1.13.10 i ty of [facility] 4.2.7.2.686 [facility] [id number] [facility] porfirio 089 [place] 2021-08-21 2021-08-21 Outpatient [facility] [id number] Univers 08:30:00 08:30:[address] [facility] 2021-08-21 2021-08-21 Travel 1.2.840.1 1.2.352.573 [id number] Univers 00:00:00 00:00:00 63092.1.1 350.1.13.10 ity of 3.104.2.7 4.2.7.3.698 [place] .3.492063 084.8 Medica l .8 [place] 2021-08-14 2021-08-14 Telephone [place], 1.2.840.8 [id number] Univers 00:00:00 00:00:00 Santiago 90531.1.1 ity of 3.104.2.7 [place] .3.627826 Medica l .8 [place] 2021-08-13 2021-08-13 Telephone [place], 1.2.840.5 [id number] Univers 00:00:00 00:00:00 Santiago 41210.1.1 ity of 3.104.2.7 [place] .3.180050 Medica l .8 [place] 2021-08-11 2021-08-11 Outpatient [facility] [id number] Univers 08:00:00 08:00:00 [facility] 2021-08-05 2021-08-05 Inpatient RAUL Lund, [facility] [id number] [facility] 05:24:00 05:24:00 Mike 31 [facility] 2021-07-20 2021-07-20 Outpatient [facility] [id number] Univers 10:00:00 10:00:00 [facility] 2021-07-14 2021-07-14 Office KIMBERLEY Lira 6400 1.2.840.114 [id number] [place] 08:45:00 09:34:01 Visit Elan ROMERO 350.1.13.58 [facility] 9.2.7.2.686 [id number] 1 2021-07-09 2021-07-09 Telephone Hematpour, UTP 6400 1.2.840.114 [id number] [place] 00:00:00 00:00:[address] 350.1.13.58 Health 9.2.7.2.686 [id number] 1 2021-07-09 2021-07-09 Telephone Maryjanepour, UTP 6400 1.2.840.114 [id number] [place] 00:00:00 00:00:[address] 350.1.13.58 Health 9.2.7.2.686 [id number] 1 2021-07-03 2021-07-03 Outpatient R EAST, [facility] [id number] Univers 08:00:00 08:00:[address] [facility] 2021-06-17 2021-06-17 Inpatient EL Raslan, HCACL INTE.02 [id number] [facility] 10:56:00 14:36:00 Mike 47 [facility] 2021-06-15 2021-06-15 Outpatient R SELF, [facility] [id number] Univers 10:15:00 11:07:21 GADIEL barbosa [facility] 2021-06-15 2021-06-15 Outpatient R SELF, [facility] [id number] Univers 10:15:00 [facility]:15[facility] 2021-06-15 Outpatient R SELF, [facility] [id number] Univers 10:15:00 10:15:00 GADIEL familia [facility] 2021-06-15 2021-06-15 Orders Doctor 1.2.840.0 [id number] Univers 00:00:00 00:00:00 Only Unassigned, 33827.1.1 ity of [place] 3.104.2.7 [place] .3.744087 Medica l .8 Branch 2021-06-15 2021-06-15 Travel 1.2.840.1 1.2.675.562 [id number] Univers 00:00:00 00:00:00 90258.1.1 350.1.13.10 ity of 3.104.2.7 4.2.7.3.698 [place] .3.826871 084.8 Medica l .8 Branch 2021-06-11 2021-06-11 Refill [place], UNIVERSIT 1.2.766.684 [id number] Univers 00:00:00 00:00:00 [facility] 350.1.13.10 i ty of CL[place] 4[place] [id number] [facility] 089 Branch 2021-06-11 2021-06-11 Refill [place], 1.2.840.9 [id number] Univers 00:00:00 00:00:00 Santiago 71853.1.1 ity of 3.104.2.7 [place] .3.321238 Medica l .8 [place] 2021-06-05 2021-06-05 Outpatient R [facility] [id number] Univers 09:00:00 09:00:00 SANTIAGO ity of [facility] 2021-06-02 2021-06-02 Telephone [facility], UNIVERSIT 1.2.840.114 [id number] Univers 00:00:00 00:00:00 [facility] 350.1.13.10 i ty of [place] [id number] [address] 2021-06-02 2021-06-02 Telephone East, 1.2.840.1 [id number] Univers 00:00:00 00:00:00 Santiago 71433.1.1 ity of 3.104.2.7 [place] .3.162708 Medica l .8 Branch 2021-05-29 2021-05-29 Telephone [place], 1.2.840.3 [id number] Univers 00:00:00 00:00:00 Santiago 05601.1.1 ity of 3.104.2.7 [place] .3.588626 Medica l .8 Branch 2021-05-29 2021-05-29 Telephone [place], 1.2.840.6 [id number] [id number] [facility] 00:00:00 00:00:00 [place] 12085.1.1 [facility] 3.104.2.7 [place] 12281.060446 Medica [facility] Branch 2021-05-25 2021-05-25 Outpatient R SELF, [facility] [id number] Univers 08:00:00 08:00:00 GADIEL familia o [facility] 2021-04-29 2021-04-29 Outpatient R LALA, [facility] [id number] Univers 08:00:00 08:00:[address] [facility] 2021-04-28 2021-04-28 Telephone Maryjanedale, [facility] 6400 1.2.840.114 [id number] [place] 00:00:00 00:00:[address] 350.1.13.58 Health 9.2.7.2.686 [id number] 1 2021-04-28 2021-04-28 Telephone Jailyn 1.2.840.6 [id number] 21 [id number] Methodi 00:00:00 00:00:[address] 3.430.2.7 Hospit a .3.354475 l .8 2021-03-31 2021-03-31 Orders Carol Ann 1.2.840.1 [id number] Methodi 00:00:00 00:00:00 Only Sarai CorbinChelsie 43483.1.1 979 s t 3.430.2.7 Hospit a .3.916451 l .8 2021-03-30 2021-03-30 Outpatient R SELF, [facility] [id number] Univers 08:45:00 08:45:00 GADIEL rodas [facility] 2021-03-24 2021-03-24 Telephone Jailyn 1.2.840.1 [id number] Methodi 00:00:00 00:00:[address] 3.430.2.7 Hospit a .3.044922 l .8 2021-02-13 2021-02-13 Telephone Ronald, 1.2.840.9 [id number] Univers 00:00:00 00:00:00 Santiago 84913.1.1 ity of 3.104.2.7 [place] .3.744159 Medica l .8 [place] 2021-01-28 2021-01-28 Laure REEVES, [facility] [id number] Univers 08:45:00 09:37:00 NIKOLAI ity of [facility] 2021-01-28 2021-01-28 Travel 1.2.840.1 1.2.749.326 [id number] Univers 00:00:00 00:00:00 32750.1.1 350.1.13.10 ity of 3.104.2.7 4.2.7.3.698 [place] .3.872063 084.8 Medica l .8 [place] 2021-01-19 2021-01-19 Telephone [place], 1.2.840.1 [id number] Method 00:00:00 00:00:[address] 3.430.2.7 Hospit a .3.565901 l .8 2021-01-04 2021-01-04 Dmitry Bass, 1.2.840.8 [id number] 696 Univers 00:00:00 00:00:00 (Out) Dagoberto H 32507.1.1 ity of 3.104.2.7 [place] .3.537577 Medica l .8 [place] 2021-01-04 2021-01-04 Dmitry Bass, 1.2.840.9 [id number] 696 Univers 00:00:00 00:00:00 (Out) Dagoberto H 38103.1.1 ity of 3.104.2.7 [place] .3.949612 Medica l .8 [place] 2021-01-03 2021-01-03 Dmitry Bass, 1.2.840.2 [id number] 790 Univers 00:00:00 00:00:00 (Out) Dagoberto H 23034.1.1 ity of 3.104.2.7 [place] .3.380838 Medica l .8 [place] 2021-01-03 2021-01-03 Letter Shelia, 1.2.840.1 [id number] 790 Univers 00:00:00 00:00:00 (Out) Dagoberto 75266.1.1 ity of 3.104.2.7 [place] .3.036763 Medica l .8 Branch 2021-01-02 2021-01-02 Outpatient R [facility] [id number] Univers 13:40:00 13:40:00 ity of [facility] 2021-01-02 2021-01-02 Laboratory [place] Franks 1.2.840.5 [id number] Univers 12:14:13 12:57:34 Only Lab, [facility] [place] [address].1.1 ity of 3.104.2.7 [place] .3.097327 Medica l .8 [place] 2021-01-02 2021-01-02 Laboratory [place] Franks 1.2.840.8 [id number] Univers 12:14:13 12:57:34 Only Lab, [facility] [place] I 05653.1.1 ity of 3.104.2.7 [place] .3.591086 Medica l .8 Branch 2021-01-02 2021-01-02 Travel 1.2.840.1 1.2.661.213 1758 2306 Univers 00:00:00 00:00:00 90767.1.1 350.1.13.10 ity of 3.104.2.7 4[place].3.698 [place] .3.972067 084.8 Medica l .8 [place] 2021-01-02 2021-01-02 Letter Doctor 1.2.840.1 [id number] 948 Univers 00:00:00 00:00:00 (Out) Unassigned, 58055.1.1 ity of [place] 3.104.2.7 [place] .3.386949 Medica l .8 Branch 2021-01-02 2021-01-02 Letter Doctor 1.2.840.4 [id number] 946 Univers 00:00:00 00:00:00 (Out) Unassigned, 41753.1.1 ity of [place] 3.104.2.7 [place] .3.733890 Medica l .8 [place] 2021-01-02 2021-01-02 Travel 1.2.840.1 1.2.087.514 7877 2306 Univers 00:00:00 00:00:00 86781.1.1 350.1.13.10 ity of 3.104.2.7 4[place]7.3.698 [place] .3.526753 084.8 Medica l .8 [place] 2021-01-02 2021-01-02 Letter Doctor 1.2.840.4 [id number] 948 Univers 00:00:00 00:00:00 (Out) Unassigned, 57043.1.1 ity of [place] 3.104.2.7 [place] .3.543641 Medica l .8 [place] 2021-01-02 2021-01-02 Letter Doctor 1.2.840.6 [id number] 946 Univers 00:00:00 00:00:00 (Out) Unassigned, 16406.1.1 ity of [place] 3.104.2.7 [place] .3.001038 Medica l .8 [place] 2020-12-22 2020-12-22 Telephone Beltran, 1.2.840.2 [id number] [id number] Univers 00:00:00 00:00:00 Robbi Hairston 85451.1.1 i ty of 3.104.2.7 [place] .3.549421 Medica l .8 [place] 2020-12-22 2020-12-22 Telephone Beltran, 1.2.840.2 [id number] [id number] Univers 00:00:00 00:00:00 Eligionda R 30533.1.1 i ty of 3.104.2.7 [place] .3.065412 Medica l .8 [place] 2020-12-12 2020-12-12 Office Hematpour, UTP 6400 1.2.840.114 12 [id number] [place] 07:42:02 08:18:[address] 350.1.13.58 Health 9.2.7.2.686 [id number] 1 2020-12-12 2020-12-12 Office Hematporay, UTP 6400 1.2.840.114 12 [id number] 07:42:02 08:18:[address] 350.1.13.58 9.2.7.2.686 [id number] 1 2020-12-09 2020-12-09 Telephone [facility], 1.2.840.1 [id number] Methodi 00:00:00 00:00:00 Sarai Corbin. 95018.1.1 316 s t 3.430.2.7 Hospit a .3.691143 l .8 2020-12-08 2020-12-08 [facility], 1.2.840.1 [id number] 2100 093853 Methodi 12:35:54 23:59:00 Encounter Ray [address]8705.1.[address] 3.430.2.7 Hospit a .3.809083 l .8 2020-12-08 2020-12-08 [facility], 1.2.840.1 [id number] 96321 00403 Methodi 17:25:00 17:30:[address] 3.430.2.7 Hospit a .3.806399 l .8 2020-12-08 2020-12-08 Office [facility], 1.2.840.1 [id number] 17516 14194 Methodi 10:30:00 11:39:56 Visit Ray [address]200.1.[address] 3.430.2.7 Hospit a .3.569109 l .8 2020-12-08 2020-12-08 Travel 1.2.840.1 1.2.563.045 0440 585652 Methodi 00:00:00 00:00:[address] 3.430.2.7 0.2.7.3.698 Ho spita .3.452259 084.8 l .8 2020-12-02 2020-12-02 Digital Account Manager Santiago Cardenas 1.2.840.1 [id number] Univers 10:20:06 10:36:19 Visit [facility] 30508.1.1 ity of 3.104.2.7 [place] .3.906986 Medica l .8 [place] 2020-12-02 2020-12-02 Digital Account Manager Santiago Cardenas 1.2.840.1 [id number] [facility] 10:20:06 10:36:19 Visit [facility] 83759.1.1 ity of 3.104.2.7 [place] .3.668351 Medica l .8 [place] 2020-12-02 2020-12-02 Digital Account Manager [facility] 1.2.840.114 8 [id number] 10:20:06 10:36:19 Visit [facility] 350.1.13.10 [facility] 4.2.7.2.686 [id number] [facility] 2020-12-02 2020-12-02 Office Ronald, 1.2.840.1 [id number] 528 Univers 08:31:37 09:01:37 Visit Santiago 06292.1.1 ity of 3.104.2.7 [place] .3.062298 Medica l .8 [place] 2020-12-02 2020-12-02 Outpatient R RONALD, [facility] [id number] Univers 09:00:00 09:00:00 SANTIAGO itcharlie of [facility] 2020-11-25 2020-11-25 Office Devin, 1.2.840.3 [id number] 75467 865 Univers 11:06:30 11:58:14 Visit Robbi Hairston 80035.1.1 i ty of 3.104.2.7 [place] .3.229899 Medica l .8 [place] 2020-11-25 2020-11-25 Office Devin, 1.2.840.0 [id number] 865 Univers 11:06:30 11:58:14 Visit Robbi Hairston 48268.1.1 i ty of 3.104.2.7 [place] .3.071040 Medica l .8 [place] 2020-11-25 2020-11-25 Office Devin, [facility] 1.2.840.114 [id number] 11:06:30 11:58:14 Visit Robbi Hairston [employer]EL[employer] 350.1.13.10 [facility] 4.2.7.2.686 MATERNAL [id number] & CHILD [address] [place] [address] 2020-11-25 2020-11-25 Outpatient R [facility] [id number] Univers 11:00:00 11:00:00 ity of [facility] 2020-11-25 2020-11-25 Telephone Devin, 1.2.840.8 [id number] 855 09932 Univers 00:00:00 00:00:00 Robbi Hairston 37644.1.1 i ty of 3.104.2.7 [place] .3.996760 Medica l .8 [place] 2020-11-25 2020-11-25 Refill [place], 1.2.840.8 [id number] 10510 592 Univers 00:00:00 00:00:00 Santiago 36574.1.1 ity of 3.104.2.7 [place] .3.349294 Medica l .8 [place] 2020-11-25 2020-11-25 Travel 1.2.840.1 1.2.294.516 8279 0247 Univers 00:00:00 00:00:00 72203.1.1 350.1.13.10 ity of 3.104.2.7 4.2.7.3.698 [place] .3.578961 084.8 Medica l .8 [place] 2020-11-25 2020-11-25 Orders Doctor 1.2.840.5 [id number] 064 Univers 00:00:00 00:00:00 Only Unassigned, 40848.1.1 ity of Corinne 3.104.2.7 [place] .3.868862 Medica l .8 [place] 2020-11-25 2020-11-25 Telephone Devin, 1.2.840.9 [id number] 855 81165 Univers 00:00:00 00:00:00 Roshunda R 10490.1.1 i ty of 3.104.2.7 [place] .3.610373 Medica l .8 [place] 2020-11-25 2020-11-25 Refill East, 1.2.840.9 [id number] 57218 592 Univers 00:00:00 00:00:00 Santiago 67470.1.1 ity of 3.104.2.7 [place] .3.724898 Medica l .8 [place] 2020-11-25 2020-11-25 Travel 1.2.840.1 1.2.011.536 1860 0247 Univers 00:00:00 00:00:00 96436.1.1 350.1.13.10 ity of 3.104.2.7 4.2.7.3.698 [place] .3.051735 084.8 Medica l .8 [place] 2020-11-25 2020-11-25 Orders Doctor 1.2.840.5 [id number] 064 Univers 00:00:00 00:00:00 Only Unassigned, 41841.1.1 ity of [place]in[place] 3.104.2.7 [place] .3.232549 Medica l .8 Branch 2020-11-25 2020-11-25 [facility] 1.2.829.983 7822 4592 00:00:00 00:00:00 [facility] 350.1.13.10 [facility] 4.2.7.2.686 [id number] 089 2020-11-25 2020-11-25 Telephone Devin [facility] 1.2.615.195 2030 0821 00:00:00 00:00:00 Robbi Hairston [employer]EL[employer] 350.1.13.10 REGIONAL 4.2.7.2.686 MATERNAL [id number] & CHILD [address] [place] [address] 2020-11-14 2020-11-14 Abstract Clark, 1.2.840.1 [id number] 67756 00835 Methodi 00:00:00 00:00:[address] 3.430.2.7 Hospit a .3.593974 l .8 2020-11-14 2020-11-14 Telephone Clark, 1.2.840.1 [id number] 2100 137553 Method 00:00:00 00:00:[address] 3.430.2.7 Hospit a .3.866812 l .8 2020-11-12 2020-11-12 [id number] [facility] 08:30:00 08:30:[address] [facility] 2020-11-07 2020-11-07 Telephone Agustina Ortiz UTP 6400 1.2.840.11 4 [id number] [place] 00:00:00 00:00:[address] 350.1.13.58 Health 9.2.7.2.686 [id number] 1 2020-11-07 2020-11-07 Telephone Diana IKMBERLEY 6400 1.2.840.114 124 [id number] 00:00:00 00:00:[address] 350.1.13.58 9.2.7.2.686 [id number] 1 2020-10-31 2020-10-31 Office Hematpour UTP 6400 1.2.840.114 12 [id number] [place] 07:54:00 09:45:[address] 350.1.13.58 Health 9.2.7.2.686 [id number] 1 2020-10-30 2020-10-30 Abstract MaguireRody jasso UTP 6400 1.2.840.1 14 [id number] [place] 00:00:00 00:00:[address] 350.1.13.58 Health 9.2.7.2.686 [id number] 1 2020-10-29 2020-10-29 Refill Ronald, 1.2.840.2 [id number] 10806 400 [facility] 00:00:00 00:00:00 Santiago 09977.1.1 [facility] 3.104.2.7 [place] .3.953123 Medica l 8 [place] 2020-10-292020-10-29 Refill [place], 1.2.840.6 [id number] 83064 400 Univers 00:00:00 00:00:00 Santiago 81173.1.1 ity of 3.104.2.7 [place] .3.164211 Medica l .8 [place] 2020-10-27 2020-10-27 Telephone Jailyn, 1.2.840.6 [id number] 21 [id number] Methodi 00:00:00 00:00:[address] 3.430.2.7 Hospit a .3.837310 l .8 2020-10-24 2020-10-24 Telephone Clark, 1.2.840.1 [id number] 2100 142071 Methodi 00:00:00 00:00:[address] 3.430.2.7 Hospit a .3.110935 l .8 2020-10-22 2020-10-22 Outpatient R SELF, [facility] [id number] 868 Univers 13:00:00 13:00:00 GADIEL barbosa [facility] 2020-10-22 2020-10-22 Travel 1.2.840.1 1.2.049.547 9734 3839 Univers 00:00:00 00:00:00 06858.1.1 350.1.13.10 ity of 3.104.2.7 4.2.7.3.698 [place] .3.814938 084.8 Medica l .8 [place] 2020-10-22 2020-10-22 Travel 1.2.840.1 1.2.665.102 7148 3839 Univers 00:00:00 00:00:00 57752.1.1 350.1.13.10 ity of 3.104.2.7 4.2.7.3.698 [place] .3.945174 084.8 Medica l .8 [place] 2020-10-13 2020-10-13 Outpatient R SELF, [facility] [id number] Univers 08:45:00 08:45:00 GADIEL barbosa o [facility] 2020-10-06 2020-10-12 Telemedici [facility], 1.2.840.1 [id number] 21 [id number] Methodi 15:30:00 00:08:46 ne Ray 16148.1.[address] 3.430.2.7 Hospit a .3.479946 l .8 2020-09-30 2020-09-30 [facility], 1.2.840.7 [id number] Methodi 00:00:00 00:00:[address] 3.430.2.7 Hospit a .3.563936 l .8 2020-09-21 2020-09-21 Travel 1.2.840.1 1.2.772.549 3225 924652 Methodi 00:00:00 00:00:[address] 3.430.2.7 0.2.7.3.698 spita .3.245252 084.8 l .8 2020-09-06 2020-09-06 [facility] 1.2.840.1 [id number] 45639 80500 Methodi 17:42:30 23:59:[address] 3.430.2.7 Hospit a .3.585395 l .8 2020-09-06 2020-09-06 [facility], 1.2.840.1 [id number] 2100 704136 Methodi 16:50:00 17:41:00 Encounter Ray 25414.1.[address] 3.430.2.7 Hospit a .3.156010 l .8 2020-09-05 2020-09-05 [facility], 1.2.840.1 [id number] 2099 763740 Methodi 09:17:00 19:45:00 Encounter Ray [address]609.1.[address] 3.430.2.7 Hospit a .3.679667 l .8 2020-09-05 2020-09-05 [facility], 1.2.840.1 [id number] 43596 58178 Methodi 11:30:00 13:15:[address] 3.430.2.7 Hospit a .3.295220 l .8 2020-09-05 2020-09-05 Anesthesia Remigio, 1.2.840.1 [id number] 757 [id number] Methodi 11:27:00 12:20:00 Event Kirit 44161.1.1 243 s t V. 3.430.2.7 Hospit a .3.676386 l .8 2020-09-05 2020-09-05 Travel 1.2.840.1 1.2.833.412 4884 504201 Methodi 00:00:00 00:00:[address] 3.430.2.7 0.2.7.3.698 Ho spita .3.140171 084.8 l .8 2020-09-04 2020-09-04 Telephone [facility], 1.2.840.1 [id number] Methodi 00:00:00 00:00:00 Sarai M. 62406.1.1 762 s t 3.430.2.7 Hospit a .3.597782 l .8 2020-09-02 2020-09-02 Telephone [facility], 1.2.840.8 [id number] Methodi 00:00:00 00:00:00 Sarai M. 15162.1.1 344 s t 3.430.2.7 Hospit a .3.339681 l .8 2020-08-29 2020-08-30 [facility] [id number] [facility] 10:20:00 14:10:00 Outpatient r [place] [address] [facility] 2020-08-29 2020-08-30 Outpatient HEMATPOUR, [facility] CAR 7500 [facility] 05:20:00 09:10:00 BEVERLY 2020-08-06 2020-08-06 Office [place], 1.2.840.5 [id number] 416 [facility] 08:03:23 09:17:49 Visit Santiago 11019.1.1 ity of 3.104.2.7 [place] .3.585207 Medica l .8 [place] 2020-08-06 2020-08-06 Outpatient R EAST, [facility] [id number] Univers 08:30:00 08:30:00 SANTIAGO ity of [facility] 2020-07-14 2020-07-14 Outpatient R SELF, [facility] [id number] Univers 09:30:00 09:30:00 GADIEL familia o f [facility] 2020-07-14 2020-07-14 Travel 1.2.840.1 1.2.821.136 7723 2575 Univers 00:00:00 00:00:00 96970.1.1 350.1.13.10 ity of 3.104.2.7 4.2.7.3.698 [place] .3.356418 084.8 Medica l .8 [place] 2020-07-14 2020-07-14 Orders Doctor 1.2.840.6 [id number] 309 Univers 00:00:00 00:00:00 Only Unassigned, 20892.1.1 ity of [place] 3.104.2.7 [place] .3.427879 Medica l .8 [place] 2020-06-16 2020-06-16 Outpatient R SELF, [facility] [id number] Univers 08:00:00 08:00:00 GADIEL familia o clark [facility] 2020-06-06 2020-06-06 Telephone Ronald, 1.2.840.4 [id number] 809 75922 Univers 00:00:00 00:00:00 Santiago 05173.1.1 ity of 3.104.2.7 [place] .3.662974 Medica l .8 [place] 2020-06-04 2020-06-04 Digital Account Manager Santiago Cardenas 1.2.840.1 [id number] Univers 09:31:58 09:40:12 Visit [facility] 05139.1.1 ity of 3.104.2.7 [place] .3.584662 Medica l .8 [place] 2020-06-04 2020-06-04 Office JOSÉ ANTONIO Cardenas 1.2.505.506 5466 9729 Univers 08:13:41 09:28:25 Visit Santiago [facility] 350.1.13.10 i ty of CLINICS 4.2.7.2.686 Richi bach 249.2831164 [facility] porfirio 089 [place] 2020-06-04 2020-06-04 Outpatient R [facility] [id number] Univers 08:30:00 08:30:00 [facility] 2020-06-04 2020-06-04 Orders Doctor 1.2.840.7 [id number] 079 Univers 00:00:00 00:00:00 Only Unassigned, 88574.1.1 ity of [place]inne 3.104.2.7 [place] .3.622084 Medica l .8 [place] 2020-05-19 2020-05-19 Telephone [place], 1.2.840.3 [id number] 804 [id number] Univers 00:00:00 00:00:00 Santiago 13391.1.1 ity of 3.104.2.7 [place] .3.613419 Medica l .8 [place] 2020-04-24 2020-04-24 Telephone [place], 1.2.840.8 [id number] 799 [id number] Univers 00:00:00 00:00:00 Santiaog 27757.1.1 ity of 3.104.2.7 [place] .3.776052 Medica l .8 [place] 2020-04-14 2020-04-14 Outpatient R [facility] [id number] Univers 09:00:00 09:00:00 [facility] 2020-04-14 2020-04-14 Telephone [place], 1.2.840.8 [id number] 797 77930 Univers 00:00:00 00:00:00 Santiago 10655.1.1 ity of 3.104.2.7 [place] .3.418902 Medica l .8 [place] 2020-03-31 2020-03-31 Outpatient R [facility] [id number] Univers 08:30:00 08:30:00 [facility] 2020-03-03 2020-03-03 Outpatient R [facility], [facility] [id number] Univers 08:00:00 08:00:00 GADIEL barbosa o f [facility] 2020-03-03 2020-03-03 Outpatient R SELF, [facility] [id number] Univers 08:00:00 08:00:00 GADIEL maciely o f [facility] 2020-03-03 2020-03-03 Travel 1.2.840.1 1.2.434.325 6683 5480 Univers 00:00:00 00:00:00 36503.1.1 350.1.13.10 ity of 3.104.2.7 4.2.7.3.698 [place] .3.058395 084.8 Medica l .8 [place] 2020-02-06 2020-02-06 Telephone East, 1.2.840.1 [id number] 781 [id number] Univers 00:00:00 00:00:00 Santiago 85923.1.1 ity of 3.104.2.7 [place] .3.484552 Medica l .8 Branch 2020-01-26 2020-01-26 Emergency Caridad, 1.2.840.0 [id number] 779 74665 Univers 10:03:00 13:05:00 Cynise 12568.1.1 ity of 3.104.2.7 [place] .3.090760 Medica l .8 Branch 2020-01-26 2020-01-26 Travel 1.2.840.1 1.2.472.221 9377 0120 Univers 00:00:00 00:00:00 52602.1.1 350.1.13.10 ity of 3.104.2.7 4.2.7.3.698 [place] .3.116288 084.8 Medica l .8 [place] 2020-01-25 2020-01-25 Outpatient R EAST, [facility] [id number] Univers 08:30:00 08:30:00 SANTIAGO ity of [facility] 2020-01-25 2020-01-25 Telemedici [place], 1.2.840.3 [id number] Univers 07:36:49 08:06:49 ne Visit Santiago 75021.1.1 ity of 3.104.2.7 [place] .3.294512 Medica l .8 [place] 2020-01-16 2020-01-16 Outpatient R EAST, [facility] [id number] Univers 08:00:00 08:00:[address] [facility] 2020-01-16 2020-01-16 Telephone East, 1.2.840.1 [id number] Univers 00:00:00 00:00:00 Santiago 70468.1.1 ity of 3.104.2.7 [place] .3.396815 Medica l .8 [place] 2020-01-14 2020-01-14 Outpatient R SELF, [facility] [id number] Univers 08:00:00 08:00:00 GADIEL maciely o f [facility] 2019-12-31 2019-12-31 Outpatient R SELF, [facility] [id number] Univers 08:45:00 08:45:00 GADIEL maciely o f [facility] 2019-10-17 2019-10-17 Outpatient R EAST, [facility] [id number] Univers 08:30:00 08:30:[address] [facility] 2019-10-12 2019-10-12 Outpatient R EAST, [facility] [id number] Univers 13:00:00 13:00:[address] [facility] 2019-10-12 2019-10-12 Telemedici [place], 1.2.840.5 [id number] Univers 07:38:30 08:08:30 ne Visit Santiago 32183.1.1 ity of 3.104.2.7 [place] .3.198501 Medica l .8 [place] 2019-10-08 2019-10-08 Outpatient R SELF, [facility] [id number] Univers 10:15:00 10:15:00 GADIEL barbosa o f [facility] 2019-10-03 2019-10-03 Case Assman, 1.2.840.4 [id number] Univers 00:00:00 00:00:00 Management Michael Corbin 36843.1.1 i ty of 3.104.2.7 [place] .3.929327 Medica l .8 [place] 2019-09-27 2019-09-27 Telephone East, 1.2.840.0 [id number] 755 [id number] Univers 00:00:00 00:00:00 Santiago 50608.1.1 ity of 3.104.2.7 [place] .3.609474 Medica l .8 [place] 2019-09-04 2019-09-04 Refill East, 1.2.840.1 [id number] 497 Univers 00:00:00 00:00:00 Santiago 64111.1.1 ity of 3.104.2.7 [place] .3.619123 Medica l .8 [place] 2019-07-24 2019-07-24 Outpatient R EAST, [facility] [id number] Univers 08:30:00 08:30:00 SANTIAGO ity of [facility] 2019-07-17 2019-07-17 Outpatient R EAST, [facility] [id number] Univers 10:00:00 10:00:00 SANTIAGO ity of [facility] 2019-06-15 2019-06-15 Telephone East, 1.2.840.8 [id number] 738 [id number] Univers 00:00:00 00:00:00 Santiago 68752.1.1 ity of 3.104.2.7 [place] .3.741114 Medica l .8 [place] 2019-06-13 2019-06-13 Telephone Team, [facility] 1.2.840.0 [id number] Univers 00:00:00 00:00:00 Health 13265.1.1 ity of [place].104.2.7 [place] .3.092273 Medica l .8 [place] 2019-05-10 2019-05-10 Refill [place], 1.2.840.0 [id number] 022 Univers 00:00:00 00:00:00 Santiago 67140.1.1 ity of 3.104.2.7 [place] .3.708968 Medica l .8 [place] 2019-05-09 2019-05-09 Refill East, 1.2.840.8 [id number] 260 Univers 00:00:00 00:00:00 Santiago 93134.1.1 ity of 3.104.2.7 [place] .3.568183 Medica l .8 [place] 2019-04-30 2019-04-30 Outpatient R SELF, [facility] [id number] Univers 10:15:00 10:33:05 GADIEL itcharlie o f [facility] 2019-04-18 2019-04-18 Digital Account Manager Santiago Cardenas 1.2.840.1 [id number] Univers 10:00:39 10:44:31 Visit [facility] 46947.1.1 ity of 3.104.2.7 [place] .3.190758 Medica l .8 [place] 2019-04-18 2019-04-18 Outpatient R RONALD, [facility] [id number] Univers 10:00:00 10:44:31 SANTIAGO ity of [facility] 2019-04-18 2019-04-18 Office Ronald, 1.2.840.0 [id number] 005 Univers 08:27:44 09:53:27 Visit Santiago 05425.1.1 ity of 3.104.2.7 [place] .3.125282 Medica l .8 [place] 2019-04-18 2019-04-18 Orders Doctor 1.2.840.8 [id number] [id number] Univers 00:00:00 00:00:00 Only Unassigned, 94884.1.1 ity of [place]inne 3.104.2.7 [place] .3.014666 Medica l .8 [place] 2019-04-11 2019-04-11 Refill Ronald, 1.2.840.8 [id number] 033 Univers 00:00:00 00:00:00 Santiago 18997.1.1 ity of 3.104.2.7 [place] .3.419985 Medica l .8 [place] 2019-04-09 2019-04-09 Refill Ronald, 1.2.840.6 [id number] Univers 00:00:00 00:00:00 Santiago 04997.1.1 ity of 3.104.2.7 [place] .3.511586 Medica l .8 [place] 2019-04-03 2019-04-03 Telephone Team, [facility] 1.2.840.7 [id number] Univers 00:00:00 00:00:00 Health 15497.1.1 ity of [place].104.2.7 [place] .3.065265 Medica l .8 [place] 2019-03-27 2019-03-27 Telephone Self, 1.2.840.3 [id number] 723 [id number] Univers 00:00:00 00:00:00 Gadiel 21903.1.1 ity of 3.104.2.7 [place] .3.697860 Medica l .8 Branch 2019-01-17 2019-01-17 Office East, 1.2.840.4 [id number] 820 Univers 07:37:21 10:32:51 Visit Santiago 94592.1.1 ity of 3.104.2.7 [place] .3.318721 Medica l .8 Branch 2019-01-04 2019-01-12 Office Eveline Hansen 1.2.840.6 [id number] Univers 11:19:32 11:08:05 Visit Mariela 36229.1.1 ity of 3.104.2.7 [place] .3.950124 Medica l .8 Branch 2019-01-10 2019-01-10 Telephone Stanislav, 1.2.840.2 [id number] 709 [id number] Univers 00:00:00 00:00:00 Eladio Inman 82893.1.1 ity of 3.104.2.7 [place] .3.308429 Medica l .8 [place] 2018-12-18 2018-12-18 Office Geraldine, 1.2.840.2 [id number] Univers 08:48:45 09:13:43 Visit Leyda 52397.1.1 it y of 3.104.2.7 [place] .3.966573 Medica l .8 Branch 2018-10-30 2018-10-30 Telephone East, 1.2.840.1 [id number] [id number] Univers 00:00:00 00:00:00 Santiago 84876.1.1 ity of 3.104.2.7 [place] .3.372473 Medica l .8 Branch 2018-10-23 2018-10-23 Orders Doctor 1.2.840.2 [id number] Univers 00:00:00 00:00:00 Only Unassigned, 75406.1.1 ity of Corinne 3.104.2.7 [place] .3.166741 Medica l .8 [place] 2018-10-23 2018-10-23 Nurse Selvin, 1.2.840.7 [id number] Univers 00:00:00 00:00:00 Triage Stefanie 65272.1.1 ity of 3.104.2.7 [place] .3.105646 Medica l .8 [place] 2018-10-23 2018-10-23 Telephone Self, 1.2.840.9 [id number] 695 [id number] Univers 00:00:00 00:00:00 Gadiel 81654.1.1 ity of 3.104.2.7 [place] .3.112045 Medica l .8 [place] 2018-10-20 2018-10-20 Telephone Self, 1.2.840.9 [id number] [facility] 00:00:00 00:00:00 Gadiel 62188.1.1 ity of 3.104.2.7 [place] .3.034549 Medica l .8 [place] Results Test Description Test Time Test Comments Results Result Comments Source COMP. METABOLIC PANEL (13903) 2022-05-06 22:42:55 Test Item Value Reference Range Interpretation Comme nts NA (test code = 8292504261) 137 mmol/L 135-145 K (test code = 2904982295) 3.2 mmol/L 3.5-5.0 L CL (test code = 1151122273) 100 mmol/L 98-108 CO2 TOTAL (test code = 6470909775) 23 mmol/L 23-31 AGAP (test code = 1864054409) 2-16 BUN (test code = 7493889682) 41 mg/dL 7-23 H GLUCOSE (test code = 0611020957) 98 mg/dL 70-110 CREATININE (test code = 1.55 mg/dL 0.50-1.04 H 0150530311) TOTAL BILI (test code = 0.8 mg/dL 0.1-1.4 4748667317) CALCIUM (test code = 9795501162) 8.3 mg/dL 8.6-10.6 L T PROTEIN (test code = 6159355178) 6.9 g/dL 6.3-8.2 ALBUMIN (test code = 1899649776) 3.9 g/dL 3.5-5.0 ALK PHOS (test code = 7044967882) 89 U/L 34-122 ALTv (test code = 1742-6) 101 U/L 5-35 H AST(SGOT) (test code = 6863448808) 203 U/L 13-40 H eGFR (test code = 9236711173) mL/min/1.73m2 KYLE (test code = KYLE) Association [...] tests). Lab Interpretation (test code = Abnormal 16021-5) [facility] WITH [id number] 22:33:52 Test Item Value Reference Range Interpretation [...] RDW-SD (test code = 46.3 fL 39.0-49.9 80227-1) RDW-CV (test code = 13.5 % 12.0-15.5 788-0) PLT (test code = See_Comment L [Automated 777-3) message] The sy stem which generated this result transmitted reference range : 166 - 358 10*3/ ?L. The reference r abbey was not used to interpret this result as normal/abnormal . MPV (test code = 9.5 fL 9.5-12.9 92506-7) NRBC/100 WBC (test See_Comment [Automat ed code = 2133272139) message] The system which generated this result transmitted reference range : 0.0 - 10.0 /100 WBCs. The refer ence range was not u sed to interpret th is result as normal/abnormal . NRBC x10^3 (test code See_Comment [Auto mated = 6723863980) message] The s ystem which generated this result transmitted reference range : 10*3/?L. The reference range was not used to interpret this result as normal/abnormal . GRAN MAT (NEUT) % 58.3 % (test code = 770-8) IMM GRAN % (test code 0.80 % = 7730866218) LYMPH % (test code = 28.1 % 736-9) MONO % (test code = 12.0 % 5905-5) EOS % (test code = 0.5 % 713-8) BASO % (test code = 0.3 % 706-2) GRAN MAT x10^3(ANC) 2.29 10*3/uL 1.88-7.09 (test code = 7763092692) IMM GRAN x10^3 (test 0.03 10*3/uL 0.00-0.06 code = 2567317370) LYMPH x10^3 (test code 1.10 10*3/uL 1.32-3.29 L = 731-0) MONO x10^3 (test code 0.47 10*3/uL 0.33-0.92 = 742-7) EOS x10^3 (test code = 0.03-0.39 L 711-2) BASO x10^3 (test code 0.01-0.07 = 704-7) Lab Interpretation Abnormal (test code = 01765-4) [facility] METABOLIC PANEL (NA, K, CL, CO2, GLUCOSE, BUN, CREATININE, CA)2022-04-22 21:43:42 Test Item Value Reference Range Interpretation Comments NA (test code = 142 mmol/L 135-145 6704462260) K (test code = 3.5 mmol/L 3.5-5.0 3386336527) CL (test code = 106 mmol/L 98-108 9952146644) CO2 TOTAL (test code = 26 mmol/L 23-31 0884602874) AGAP (test code = 2-16 7149400411) BUN (test code = 29 mg/dL 7-23 H 3806788357) GLUCOSE (test code = 84 mg/dL 70-110 8852962928) CREATININE (test code = 1.16 mg/dL 0.50-1.04 H 2534595093) CALCIUM (test code = 8.2 mg/dL 8.6-10.6 L 9905431159) eGFR (test code = mL/min/1.73m2 3984371969) KYLE (test code = KYLE) Association of [...] tests). Lab Interpretation Abnormal (test code = 64047-1) [facility] WITH [id number] 21:33:01 Test Item Value Reference Range Interpretation Comments WBC (test code = See_Comment [Automated 6290-2) message] The sy stem which generated this [...] (test code = 50.7 fL 39.0-49.9 H 08074-0) RDW-CV (test code = 14.6 % 12.0-15.5 788-0) PLT (test code = See_Comment L [Automated 777-3) message] The sy stem which generated this result transmitted reference range : 166 - 358 10*3/ ?L. The reference r abbey was not used to interpret this result as normal/abnormal . MPV (test code = 8.8 fL 9.5-12.9 L 82611-2) NRBC/100 WBC (test See_Comment [Automat ed code = 4498396283) message] The system which generated this result transmitted reference range : 0.0 - 10.0 /100 WBCs. The refer ence range was not u sed to interpret th is result as normal/abnormal . NRBC x10^3 (test code See_Comment [Auto mated = 2131434536) message] The s ystem which generated this result transmitted reference range : 10*3/?L. The reference range was not used to interpret this result as normal/abnormal . GRAN MAT (NEUT) % 70.9 % (test code = 770-8) IMM GRAN % (test code 0.50 % = 9915502429) LYMPH % (test code = 17.4 % 736-9) MONO % (test code = 9.0 % 5905-5) EOS % (test code = 1.7 % 713-8) BASO % (test code = 0.5 % 706-2) GRAN MAT x10^3(ANC) 4.60 10*3/uL 1.88-7.09 (test code = 4478495038) IMM GRAN x10^3 (test 0.03 10*3/uL 0.00-0.06 code = 8759708058) LYMPH x10^3 (test code 1.13 10*3/uL 1.32-3.29 L = 731-0) MONO x10^3 (test code 0.58 10*3/uL 0.33-0.92 = 742-7) EOS x10^3 (test code = 0.11 10*3/uL 0.03-0.39 711-2) BASO x10^3 (test code 0.03 10*3/uL 0.01-0.07 = 704-7) Lab Interpretation Abnormal (test code = 96047-5) [facility] CULTURE [id number] 06:01:07 Test Item Value Reference Range Interpretation Comments Blood Culture-Aerobic No organisms No growth Previo us (test code = 04792-6) isolated prelim inary verified result was Culture [...] Culture-Anaerobic isolated preliminar y (test code = 64702-4) verifi ed result was Culture In Progress [...] CDT Lab Interpretation Normal (test code = 55430-8) [facility] CULTURE [id number] 06:01:07 Test Item Value Reference Range Interpretation Comments Blood Culture-Aerobic No organisms No growth Previo us (test code = 54239-9) isolated prelim inary verified result was Culture [...] Culture-Anaerobic isolated preliminar y (test code = 10441-5) verifi ed result was Culture In Progress [...] CDT Lab Interpretation Normal (test code = 48767-4) [facility] [id number] 06:01:07 Test Item Value Reference Range Interpretation Comments Blood Culture-Aerobic No organisms No growth Previo us (test code = 30489-2) isolated prelim inary verified result was Culture [...] Culture-Anaerobic isolated preliminar y (test code = 78072-8) verifi ed result was Culture In Progress [...] CDT Lab Interpretation Normal (test code = 93764-2) [facility] [id number] 10:49:10 Test Item Value Reference Range Interpretation Comments NT-proBNP (test code 2660 pg/mL See_Comment H [Autom ated = 4063426223) message] The system which generated this result transmitted reference range : <=125. The reference range was not used to interpret this result as normal/abnormal . KYLE (test code = KYLE) Biotin has been reported to cause a negative bias, interpret results relative to patient's use of biotin. Lab Interpretation Abnormal (test code = 22433-5) [facility] [id number] 10:49:10 Test Item Value Reference Range Interpretation Comments NT-proBNP (test code 2660 pg/mL See_Comment H [Autom ated = 3164902909) message] The system which generated this result transmitted reference range : <=125. The reference range was not used to interpret this result as normal/abnormal . KYLE (test code = KYLE) Biotin has been reported to cause a negative bias, interpret results relative to patient's use of biotin. Lab Interpretation Abnormal (test code = 05164-7) [facility] (NA, K, CL, CO2, GLUCOSE, BUN, CREATININE, CA)2022-02-15 10:44:07 Test Item Value Reference Range Interpretation Comments NA (test code = 134 mmol/L 135-145 L 7860006797) K (test code = 3.2 mmol/L 3.5-5 L 9464000590) CL (test code = 98 mmol/L 98-108 8181698696) CO2 TOTAL (test code = 27 mmol/L 23-31 0640333815) AGAP (test code = 2-16 8751599128) BUN (test code = 19 mg/dL 7-23 2099679470) GLUCOSE (test code = 102 mg/dL 70-110 2095455405) CREATININE (test code = 0.95 mg/dL 0.5-1.04 0997416521) CALCIUM (test code = 8.5 mg/dL 8.6-10.6 L 6945521119) eGFR (test code = mL/min/1.73m2 1511296349) KYLE (test code = KYLE) Association of [...] tests). Lab Interpretation Abnormal (test code = 62218-5) [facility] Test Item Value Reference Range Interpretation Comments MAGNESIUM (test code = 9244960937) 1.8 mg/dL 1.7-2.4 Lab Interpretation (test code = Normal 53530-1) [facility] 10:44:07 Test Item Value Reference Range Interpretation Comments MAGNESIUM (test code = 7192731210) 1.8 mg/dL 1.7-2.4 Lab Interpretation (test code = Normal 87283-4) [facility] (NA, K, CL, CO2, GLUCOSE, BUN, CREATININE, CA)2022-02-15 10:44:07 Test Item Value Reference Range Interpretation Comments NA (test code = 134 mmol/L 135-145 L 2225592016) K (test code = 3.2 mmol/L 3.5-5.0 L 7743670752) CL (test code = 98 mmol/L 98-108 2135846039) CO2 TOTAL (test code = 27 mmol/L 23-31 3599937720) AGAP (test code = 2-16 6869750551) BUN (test code = 19 mg/dL 7-23 0242121737) GLUCOSE (test code = 102 mg/dL 70-110 4534641745) CREATININE (test code = 0.95 mg/dL 0.50-1.04 0807005045) CALCIUM (test code = 8.5 mg/dL 8.6-10.6 L 8734658668) eGFR (test code = mL/min/1.73m2 5601652298) KYLE (test code = KYLE) Association of [...] tests). Lab Interpretation Abnormal (test code = 15515-9) [facility] WITH [id number] 10:12:06 Test Item Value Reference Range Interpretation [...] RDW-SD (test code = 47.8 fL 39-49.9 69131-9) RDW-CV (test code = 15.2 % 12-15.5 788-0) PLT (test code = See_Comment L [Automated 777-3) message] The sy stem which generated this result transmitted reference range : 166 - 358 10*3/ ?L. The reference r abbey was not used to interpret this result as normal/abnormal . MPV (test code = 8.9 fL 9.5-12.9 L 14914-1) NRBC/100 WBC (test See_Comment [Automat ed code = 3090613223) message] The system which generated this result transmitted reference range : 0.0 - 10.0 /100 WBCs. The refer ence range was not u sed to interpret th is result as normal/abnormal . NRBC x10^3 (test code See_Comment [Auto mated = 2099330903) message] The s ystem which generated this result transmitted reference range : 10*3/?L. The reference range was not used to interpret this result as normal/abnormal . GRAN MAT (NEUT) % 65.9 % (test code = 770-8) IMM GRAN % (test code 0.30 % = 7612919551) LYMPH % (test code = 21.0 % 736-9) MONO % (test code = 10.1 % 5905-5) EOS % (test code = 2.4 % 713-8) BASO % (test code = 0.3 % 706-2) GRAN MAT x10^3(ANC) 2.49 10*3/uL 1.88-7.09 (test code = 7888283295) IMM GRAN x10^3 (test 0-0.06 code = 4669682430) LYMPH x10^3 (test code 0.79 10*3/uL 1.32-3.29 L = 731-0) MONO x10^3 (test code 0.38 10*3/uL 0.33-0.92 = 742-7) EOS x10^3 (test code = 0.09 10*3/uL 0.03-0.39 711-2) BASO x10^3 (test code 0.01-0.07 = 704-7) Lab Interpretation Abnormal (test code = 75733-2) [facility] WITH [id number] 10:12:06 Test Item Value Reference Range Interpretation [...] RDW-SD (test code = 47.8 fL 39.0-49.9 47888-9) RDW-CV (test code = 15.2 % 12.0-15.5 788-0) PLT (test code = See_Comment L [Automated 777-3) message] The sy stem which generated this result transmitted reference range : 166 - 358 10*3/ ?L. The reference r abbey was not used to interpret this result as normal/abnormal . MPV (test code = 8.9 fL 9.5-12.9 L 54199-5) NRBC/100 WBC (test See_Comment [Automat ed code = 4557448873) message] The system which generated this result transmitted reference range : 0.0 - 10.0 /100 WBCs. The refer ence range was not u sed to interpret th is result as normal/abnormal . NRBC x10^3 (test code See_Comment [Auto mated = 6858318340) message] The s ystem which generated this result transmitted reference range : 10*3/?L. The reference range was not used to interpret this result as normal/abnormal . GRAN MAT (NEUT) % 65.9 % (test code = 770-8) IMM GRAN % (test code 0.30 % = 6506897856) LYMPH % (test code = 21.0 % 736-9) MONO % (test code = 10.1 % 5905-5) EOS % (test code = 2.4 % 713-8) BASO % (test code = 0.3 % 706-2) GRAN MAT x10^3(ANC) 2.49 10*3/uL 1.88-7.09 (test code = 8383829658) IMM GRAN x10^3 (test 0.00-0.06 code = 5297457157) LYMPH x10^3 (test code 0.79 10*3/uL 1.32-3.29 L = 731-0) MONO x10^3 (test code 0.38 10*3/uL 0.33-0.92 = 742-7) EOS x10^3 (test code = 0.09 10*3/uL 0.03-0.39 711-2) BASO x10^3 (test code 0.01-0.07 = 704-7) Lab Interpretation Abnormal (test code = 01871-5) [facility] WITH [id number] 11:18:28 Test Item Value Reference Range Interpretation Comments WBC (test code = See_Comment L [Automated 3490-2) message] The sy stem which generated this [...] RDW-SD (test code = 49.5 fL 39-49.9 63117-2) RDW-CV (test code = 15.5 % 12-15.5 788-0) PLT (test code = See_Comment L [Automated 777-3) message] The sy stem which generated this result transmitted reference range : 166 - 358 10*3/ ?L. The reference r abbey was not used to interpret this result as normal/abnormal . MPV (test code = 11.4 fL 9.5-12.9 87755-3) IPF % (test code = 8.7 % 1.3-7.7 H Platelet count 1585188200) measured by fluorescence method. NRBC/100 WBC (test See_Comment [Automat ed code = 0308556583) message] The system which generated this result transmitted reference range : 0.0 - 10.0 /100 WBCs. The refer ence range was not u sed to interpret th is result as normal/abnormal . NRBC x10^3 (test code See_Comment [Auto mated = 0414530426) message] The s ystem which generated this result transmitted reference range : 10*3/?L. The reference range was not used to interpret this result as normal/abnormal . GRAN MAT (NEUT) % 62.0 % (test code = 770-8) IMM GRAN % (test code 0.80 % = 5224322783) LYMPH % (test code = 22.2 % 736-9) MONO % (test code = 9.6 % 5905-5) EOS % (test code = 5.1 % 713-8) BASO % (test code = 0.3 % 706-2) GRAN MAT x10^3(ANC) 2.21 10*3/uL 1.88-7.09 (test code = 0979942998) IMM GRAN x10^3 (test 0.03 10*3/uL 0-0.06 code = 1585460843) LYMPH x10^3 (test code 0.79 10*3/uL 1.32-3.29 L = 731-0) MONO x10^3 (test code 0.34 10*3/uL 0.33-0.92 = 742-7) EOS x10^3 (test code = 0.18 10*3/uL 0.03-0.39 711-2) BASO x10^3 (test code 0.01-0.07 = 704-7) POLYCHROMASIA (test 2+ See_Comment [Automa arpit code = 03428-7) message] The system which generated this result [...] . Lab Interpretation Abnormal (test code = 13301-4) [facility] METABOLIC PANEL (NA, K, CL, CO2, GLUCOSE, BUN, CREATININE, CA)2022-02-13 10:39:07 Test Item Value Reference Range Interpretation Comments NA (test code = 136 mmol/L 135-145 1891579713) K (test code = 4.1 mmol/L 3.5-5 3974253126) CL (test code = 102 mmol/L 98-108 2570622541) CO2 TOTAL (test code = 27 mmol/L 23-31 0616297825) AGAP (test code = 2-16 9938243462) BUN (test code = 22 mg/dL 7-23 1155777955) GLUCOSE (test code = 94 mg/dL 70-110 5306002019) CREATININE (test code = 0.94 mg/dL 0.5-1.04 6371360184) CALCIUM (test code = 8.1 mg/dL 8.6-10.6 L 3516647254) eGFR (test code = mL/min/1.73m2 2275441850) KYLE (test code = KYLE) Association of [...] tests). Lab Interpretation Abnormal (test code = 21837-2) [facility]2022-02-12 01:50:10 Test Item Value Reference Range Interpretation Comments Height (test code = in 5759685219) Weight (test code = lbs 6476133390) Systolic BP (test code mmHg = 6430119327) Diastolic BP (test code mmHg = 3045669308) Heart Rate (test code = bpm 0175883203) BSA (test code = 1.85 m2 5153146501) IVS (test code = 1.22 cm 6136276169) Interventricular Septum 1.22 cm Diastolic Thickness by 2D (test code = 1196568) LVIDD (test code = 5.00 cm 0233694550) Left Ventricular End 117.9 mL Diastolic Volume by Teichholz Method (test code = 3542860) LVPWD (test code = 1.22 cm 2294107414) PW (test code = 1.22 cm 0.6-1.6 4071184026) EF(Teich) (test code = 74.60 % 6975557038) LVIDS (test code = 2.80 cm 8609094222) Left Ventricular End 29.9 mL Systolic Volume by Teichholz Method (test code = 8371542) FS (test code = 44 % 3338779419) EF - 2D (test code = 74.60 % 45212771) LVOT diameter (test 2.16 cm code = 8845126987) LVOT area (test code = 3.70 cm2 0475569660) Ao root diam (test code 3.40 cm = 2955814669) Aortic root (test code 3.4 cm = 4698484499) Ao root annulus (test 3.4 cm code = 2075517553) LA size (test code = 3.4 cm 8404277973) TR Peak Spencer (test code 330.0 cm/s = 5598710789) Triscuspid Valve mmHg Regurgitation Peak Gradient (test code = 7411650530) PV REGURGITATION PEAK mmHg GRADIENT (test code = 9497876392) PI dec slope (test code 137.20 cm/s2 = 4992457606) LAV(MOD-sp4) (test code 102.90 mL = 0860845920) MV Peak E Spencer (test 84.1 cm/s code = 7642390661) MV Peak A Spencer (test 40.1 cm/s code = 5101645016) E/A ratio (test code = ratio 0599487264) MV valve area p 1/2 3.70 cm2 method (test code = 5780616545) MV dec slope (test code 413.00 cm/s2 = 2200545453) MV P1/2t max spencer (test 83.70 cm/s code = 3192365355) MV Prop V (test code = 41.80 cm/s 5055617159) Tapse (test code = 1.83 cm 2666698352) LVOT stroke volume 96.90 cm3 (test code = 8995601619) LVOT peak spencer (test 125.5 cm/s code = 0008855964) LVOT mn grad (test code mmHg = 5972278475) AV LVOT peak gradient mmHg (test code = 1220250192) LVOT peak VTI (test 26.4 cm code = 7218987085) LV V1 mean (test code = 78.10 cm/s 4268501577) Aortic valve mean 103.7 cm/s velocity (test code = 1316784828) Ao peak spencer (test code 165.6 cm/s = 0948555431) Ao VTI (test code = 37.2 cm 9855961600) AV area by cont VTI 2.6 cm2 (test code = 9133692847) AV area peak spencer (test 2.8 cm2 code = 7866104451) Ao max PG (test code = 11.00 mm[Hg] 7024197945) AV peak gradient (test mmHg code = 7677346478) AV valve area (test 2.60 cm2 code = 3936608874) AV mean gradient (test mmHg code = 7120079108) LA Volume Index (BP) 55.2 mL/m2 (test code = 8530182167) LA volume (BP) (test 102.1 mL code = 3364661335) LAV(MOD-sp2) (test code 86.10 mL = 8172061348) A2C EF (test code = 61.20 % 9818693748) EF(sp2-el) (test code = 61.60 % 4757257741) SV(MOD-sp2) (test code 47.10 mL = 8222902260) LV Diastolic Volume 70.7 mL (BP) (test code = 6363074365) A4C EF (test code = 53.00 % 1643765356) EF(MOD-bp) (test code = 56.70 % 3787736917) EF(sp4-el) (test code = 53.90 % 4306398269) LV Systolic Volume (BP) 30.6 mL (test code = 0249269593) SV(MOD-bp) (test code = 40.10 mL 3711678510) SV(MOD-sp4) (test code 32.40 mL = 7434102991) SV(sp4-el) (test code = 33.10 mL 0764269765) EF (test code = 0743017289) Left Ventricular Stroke 40.1 mL Volume by 2-D Biplane-MOD (test code = 3854877) LV Diastolic Volume 38.2 mL/m2 Index (BP) (test code = 8105903796) LV Systolic Volume 16.5 mL/m2 Index (BP) (test code = 0231544097) Radiology Study observation (narrative) (test code = 80673-0) KYLE (test code = KYLE) ?Left?Ventricle: Left [...] 1.00The left ventricular wall motion is normal. [facility]ville[facility] [id number] 05:45:01 Test Item Value Reference Interpretation Comments Range TROPONIN I (test See_Comment [Automated code = 7683396147) message] The system which generated this result [...] biotin. Lab Interpretation Normal (test code = 29704-1) [facility] [id number] 05:41:40 Test Item Value Reference Range Interpretation Comments NT-proBNP (test code 4250 pg/mL See_Comment H [Autom ated = 4106676904) message] The system which generated this result transmitted reference range : <=125. The reference range was not used to interpret this result as normal/abnormal . KYLE (test code = KYLE) Biotin has been reported to cause a negative bias, interpret results relative to patient's use of biotin. Lab Interpretation Abnormal (test code = 34074-6) [facility]villeACTIV[facility] PART[facility] THRMPLAS [id number] 05:35:21 Test Item Value Reference Range Interpretation [...] seconds. Lab Interpretation Normal (test code = 58797-2) [facility]villeACTIV[facility] PART[facility] THRMPLAS [id number] 05:35:21 Test Item Value Reference Range Interpretation [...] seconds. Lab Interpretation Normal (test code = 79869-5) [facility]villePROTHROMBIN TIME / [id number] 05:33:21 Test Item Value Reference Range Interpretation [...] tions. Lab Interpretation (test Normal code = 12990-2) [facility]ville[facility] METABOLIC PANEL (08814)2022-02-11 05:33:21 Test Item Value Reference Range Interpretation Comments NA (test code = 137 mmol/L 135-145 4010102556) K (test code = 4.3 mmol/L 3.5-5 6954723522) CL (test code = 103 mmol/L 98-108 7235377402) CO2 TOTAL (test code = 25 mmol/L 23-31 0512552082) AGAP (test code = 2-16 8863147785) BUN (test code = 19 mg/dL 7-23 7285649511) GLUCOSE (test code = 120 mg/dL 70-110 H 0368619366) CREATININE (test code = 1.15 mg/dL 0.5-1.04 H 0165781617) TOTAL BILI (test code = 0.9 mg/dL 0.1-1.3 1431163912) CALCIUM (test code = 8.9 mg/dL 8.6-10.6 2346137812) T PROTEIN (test code = 6.6 g/dL 6.3-8.2 3670387614) ALBUMIN (test code = 4.0 g/dL 3.5-5 7472570854) ALK PHOS (test code = 73 U/L 34-122 3913882863) ALTv (test code = 18 U/L 5-35 1742-6) AST(SGOT) (test code = 31 U/L 13-40 2463248785) eGFR (test code = mL/min/1.73m2 3791593282) KYLE (test code = KYLE) Association of [...] tests). Lab Interpretation Abnormal (test code = 16634-9) [facility]ville[facility]OL[facility] PANEL (68331)2022-02-11 05:33:21 Test Item Value Reference Range Interpretation Comments NA (test code = 137 mmol/L 135-145 6815104535) K (test code = 4.3 mmol/L 3.5-5.0 9078068698) CL (test code = 103 mmol/L 98-108 9768774138) CO2 TOTAL (test code = 25 mmol/L 23-31 6952209639) AGAP (test code = 2-16 5171192623) BUN (test code = 19 mg/dL 7-23 6106453693) GLUCOSE (test code = 120 mg/dL 70-110 H 7837640984) CREATININE (test code = 1.15 mg/dL 0.50-1.04 H 5923378519) TOTAL BILI (test code = 0.9 mg/dL 0.1-1.7 4195934763) CALCIUM (test code = 8.9 mg/dL 8.6-10.6 9412069968) T PROTEIN (test code = 6.6 g/dL 6.3-8.2 4587059848) ALBUMIN (test code = 4.0 g/dL 3.5-5.0 8837798505) ALK PHOS (test code = 73 U/L 34-122 8717170971) ALTv (test code = 18 U/L 5-35 1742-6) AST(SGOT) (test code = 31 U/L 13-40 0698964359) eGFR (test code = mL/min/1.73m2 0736546686) KYLE (test code = KYLE) Association of [...] tests). Lab Interpretation Abnormal (test code = 50272-0) [facility]villePROTHROMBIN [facility] / [id number] 05:33:21 Test Item Value Reference Range Interpretation Comments PROTIME PATIENT (test See_Comment [Auto mated message] code = 5964-2) The system [employer] ich generated this result transmitted ref erence range: 12.0 - 1 4.7 Seconds. The re ference range was not u sed to interpret this result as normal/abnor mal. INR (test code = 6301-6) Nor mal INR <1.1; Warfarin Therap eutic range 2.0 to 3. 0 or 2.5 to 3.5, dep ending upon the indica tions. Lab Interpretation (test Normal code = 83115-6) [facility]villeCB WITH [id number] 05:14:37 Test Item Value Reference Range Interpretation Comments WBC (test code = See_Comment [Automated 2190-2) message] The sy stem which generated this result transmitted reference range : 4.30 - 11.10 10*3/?L. The reference range was not used to interpret this result as normal/abnormal . RBC (test code = See_Comment L [Automated 479-8) message] The sy stem which generated this [...] RDW-SD (test code = 47.9 fL 39-49.9 60811-9) RDW-CV (test code = 14.9 % 12-15.5 788-0) PLT (test code = See_Comment L [Automated 777-3) message] The sy stem which generated this result transmitted reference range : 166 - 358 10*3/ ?L. The reference r abbey was not used to interpret this result as normal/abnormal . MPV (test code = 9.1 fL 9.5-12.9 L 78314-4) NRBC/100 WBC (test See_Comment [Automat ed code = 9570816836) message] The system which generated this result transmitted reference range : 0.0 - 10.0 /100 WBCs. The refer ence range was not u sed to interpret th is result as normal/abnormal . NRBC x10^3 (test code See_Comment [Auto mated = 9991975608) message] The s ystem which generated this result transmitted reference range : 10*3/?L. The reference range was not used to interpret this result as normal/abnormal . GRAN MAT (NEUT) % 78.5 % (test code = 770-8) IMM GRAN % (test code 0.20 % = 8905305483) LYMPH % (test code = 11.6 % 736-9) MONO % (test code = 8.4 % 5905-5) EOS % (test code = 1.1 % 713-8) BASO % (test code = 0.2 % 706-2) GRAN MAT x10^3(ANC) 3.45 10*3/uL 1.88-7.09 (test code = 0299781665) IMM GRAN x10^3 (test 0-0.06 code = 2434787832) LYMPH x10^3 (test code 0.51 10*3/uL 1.32-3.29 L = 731-0) MONO x10^3 (test code 0.37 10*3/uL 0.33-0.92 = 742-7) EOS x10^3 (test code = 0.05 10*3/uL 0.03-0.39 711-2) BASO x10^3 (test code 0.01-0.07 = 704-7) Lab Interpretation Abnormal (test code = 19702-0) [facility] Coronavirus 2019 [id number] 18:08:00 Test Item Value Reference Range Interpretation [...] det ection of nucleic acids f rom lhaAKDF-NxG-5 v irus and diagnosis of SA RS-CoV-2 virusinfection. It is an Emergency Use Authorization ( EUA) testauthorized by the U.S. FDA. BASIC METABOLIC [id number] 09:37:00 Test Item Value Reference Range Interpretation [...] = 9.0 mg/dL 8.0-10.5 N CA) PROTHROMBIN [id number] 09:32:00 Test Item Value Reference Range Interpretation [...] (to prevent recurrent infar ct). 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 at [facility] - XR CHEST 1 [id number] 00:00:00 [facility] : 1955 Sex: F FAX: Carmenza Kelly DO [phone] [place]: St: ADM FAX: Mike Scales MD [phone] FAX: Bahman Chopra [phone] Name: MARJAN FLEMING [facility] : 1955 Age/S: 66/F [address] [place] [address] Unit #: [id number] Loc: [place] Bernstein [address] Phys: Bahman ChopraP Acct: [id number] Dis Date: Status: ADM IN PHONE #: [phone] Exam Date: 06/17/2021 1320 FAX #: [phone] Reason: WATCHMAN EXAMS: CPT CODE: [id number] XR CHEST 1 V 11386 PROCEDURE INFORMATION: Exam: XR Chest Exam date [...] Chopra Technologist: RT Taylor(R) Trnscrd Date/Time/By: 06/17/2021 (3922) : By: Susanna Orig Print D/T: S: 06/17/2021 (2506) PAGE 1 Signed ReportCOVID 19 Asymptomatic IH [id number] 12:29:00 Test Item Value Reference Range Interpretation [...] high or waivedcomplexit y tests. BASIC METABOLIC [id number] 11:37:00 Test Item Value Reference Range Interpretation [...] code = 9.0 mg/dL 8.0-10.5 N CA) [id number] 11:37:00 Test Item Value Reference Range Interpretation Comments PREALBUMIN (test code = PREALB) 24.3 mg/dL 16.0-40.0 N PROTHROMBIN [id number] 11:03:00 Test Item Value Reference Range Interpretation [...] (to prevent recurrent infar ct). CBC W/AUTO [id number] 10:59:00 Test Item Value Reference Range Interpretation [...] 3/uL 0.0-0.1 N NRBC#) - CHEST 2 [id number] 00:00:00 [facility] : 1955 Sex: F FAX: Carmenza Kelly DO [phone] [place]: St: PRE FAX: Mike Scales MD [phone] Name: MARJAN FLEMING [facility] Kegley : 1955 Age/S: 66/F [address] [place] [address] Unit #: [id number] Loc: [place] [address]Quuv: Mike Lund MD Acct: [id number] Dis Date: Status: PRE SDC PHONE #: [phone] Exam Date: 06/16/2021 1120 FAX #: [phone] Reason: PREOP EXAMS: CPT CODE: [id number] XR CHEST 2 V 72157 PROCEDURE INFORMATION: Exam: XR Chest Exam date [...] Technologist: Danielle Nix RT(R) Trnscrd Date/Time/By: 06/16/2021 (113) : By: [email or web address] Orig Print D/T: S: 06/16/2021 (2832)PAGE 1 Signed ReportGastrointestinal [id number] 04:35:05 Test Item Value Reference Interpretation Comments [...] Rotavirus PCR (test Not Detected code = 1660405) Salmonella PCR (test Not Detected code = [...] PCR Not Detected (test code = 7124) [facility] [id number] 19:30:47 Test Item Value Reference Range Interpretation Comments Case number (test [id number] code = [id number]) Surgical pathology See link below for PDF report (test code = Lab Report 2255) Result status (test This is Supplemental code = [id number]) Report for [id number] [facility]2021-04-09 16:31:00 Test Item Value Reference Range Interpretation Comments POC Activated Clotting Time (test code 153 s = POC Activated Clotting Time) [facility] HospitalGopexjiNQJBTMFSDE6549-63-37 16:31:00 Test Item Value Reference Range Interpretation Comments POC Activated Clotting Time (test code 153 s = POC Activated Clotting Time) [facility] HospitalOukkusdJAIBOHOZHT7666-84-02 16:31:00 Test Item Value Reference Range Interpretation Comments POC Activated Clotting Time (test code 153 s = POC Activated Clotting Time) [facility] HospitalSewovowLUOWSBOZEO0236-79-00 16:31:00 Test Item Value Reference Range Interpretation Comments POC Activated Clotting Time (test code 153 s = POC Activated Clotting Time) [facility] HospitalBlpabvaBCFRZGWXNM6218-79-03 16:31:00 Test Item Value Reference Range Interpretation Comments POC Activated Clotting Time (test code 153 s = POC Activated Clotting Time) [facility] HospitalDbjcdxrHAQEVBIEOA2367-84-60 16:31:00 Test Item Value Reference Range Interpretation Comments POC Activated Clotting Time (test code 153 s = POC Activated Clotting Time) [facility] HospitalYhfltvqBQAXVQWUZH5281-35-93 16:31:00 Test Item Value Reference Range Interpretation Comments POC Activated Clotting Time (test code 153 s = POC Activated Clotting Time) [facility] HospitalVosliccOABYHVSDWU3033-76-93 14:37:00 Test Item Value Reference Range Interpretation Comments POC Activated Clotting Time (test code 454 s = POC Activated Clotting Time) [facility] HospitalHadkbluXPYXIAAJDW0554-88-55 14:37:00 Test Item Value Reference Range Interpretation Comments POC Activated Clotting Time (test code 454 s = POC Activated Clotting Time) [facility] HospitalKxoxcybFNWGAMHUSL1776-81-08 14:37:00 Test Item Value Reference Range Interpretation Comments POC Activated Clotting Time (test code 454 s = POC Activated Clotting Time) [facility] HospitalTffrdqzEBUITWYVKM1388-72-52 14:37:00 Test Item Value Reference Range Interpretation Comments POC Activated Clotting Time (test code 454 s = POC Activated Clotting Time) [facility] HospitalZdxbkwzNHGRJXYXRI6070-70-80 14:37:00 Test Item Value Reference Range Interpretation Comments POC Activated Clotting Time (test code 454 s = POC Activated Clotting Time) [facility] HospitalQaqilwvGQQRWAXUUK0500-64-08 14:37:00 Test Item Value Reference Range Interpretation Comments POC Activated Clotting Time (test code 454 s = POC Activated Clotting Time) [facility] HospitalExlpagwMUGIKBKACX5677-53-53 14:37:00 Test Item Value Reference Range Interpretation Comments POC Activated Clotting Time (test code 454 s = POC Activated Clotting Time) [facility] HospitalOjtyofxBFPTSGXYEP7389-05-99 14:13:00 Test Item Value Reference Range Interpretation Comments POC Activated Clotting Time (test code 354 s = POC Activated Clotting Time) [facility] HospitalNkhzkcuPFVYFUMXJK7361-76-54 14:13:00 Test Item Value Reference Range Interpretation Comments POC Activated Clotting Time (test code 354 s = POC Activated Clotting Time) [facility] HospitalFiwnrixBWOBNZVHEX5442-74-88 14:13:00 Test Item Value Reference Range Interpretation Comments POC Activated Clotting Time (test code 354 s = POC Activated Clotting Time) [facility] HospitalJagqxteCHXAUBPBZW0644-22-14 14:13:00 Test Item Value Reference Range Interpretation Comments POC Activated Clotting Time (test code 354 s = POC Activated Clotting Time) [facility] HospitalJhnjwngXWFJFRRFDV2570-03-66 14:13:00 Test Item Value Reference Range Interpretation Comments POC Activated Clotting Time (test code 354 s = POC Activated Clotting Time) [facility]TjbrwbvHOFHEOVFEE5043-26-59 14:13:00 Test Item Value Reference Range Interpretation Comments POC Activated Clotting Time (test code 354 s = POC Activated Clotting Time) [facility]UiwslhgSCVKSOCGOG4734-46-65 14:13:00 Test Item Value Reference Range Interpretation Comments POC Activated Clotting Time (test code 354 s = POC Activated Clotting Time) [facility] BANK ZJSUFMZ5025-68-85 10:37:00Negative (08/29/20 5:37 AM) [facility] HermannCHEM ZBSGK2157-45-76 10:37:59979Osboreva HermannCHEM PANEL 2020-08-29 10:37:0028[facility] HermannCHEM YBZXD6661-05-16 10:37:001.01[facility] HermannCHEM DQDRT0556-76-75 10:37:92586Olurdmod HermannCHEM SAZWU2069-00-54 10:37:003.8[facility] HermannCHEM MMLZH4570-91-52 10:37:65838Najyviac HermannCHEM JJZMY9830-65-12 10:37:0028[facility] HermannCHEM HCEXD0467-52-20 10:37:009.8 [facility] HermannCHEM MNGXS4984-32-22 10:37:0011.8[facility] HermannCHEM PANEL 2020-08-29 10:37:0059[facility] HermannCHEM EAXKY4723-96-79 10:37:002.9[facility] HryvwluRTDDKBSPET8022-51-27 10:37:006.8[facility] SalvndfZNKJLULPQW9997-65-38 10:37:004.47[facility] HahrwsfSTMOLYPBIH1303-41-94 10:37:0010.6[facility] TKGJRQESPK8332-06-28 10:37:0034.0[facility] ImliqocQWPHMJMIMN3314-51-40 10:37:00 76.1[facility] TjhenunJVSUYPWOAC5925-87-86 10:37:00 Test Item Value Reference Range Interpretation Comments MCH (test code = MCH) 23.8 pg 27.0-31.0 [facility] IsdjptvZZGPGMDAYE8341-53-16 10:37:0031.3[facility] HermannHEMATOLOGY 2020-08-29 10:37:0018.2[facility] KufhgvlRFIJTJRUTN9931-25-94 10:37:36894Bippdkna VbeykwlYTPPAVYQQN9125-56-63 10:37:007.5[facility] IynwwewMXMTKCBARR0360-61-12 10:37:00 Test Item Value Reference Range Interpretation Comments PT (test code = PT) 12.8 s 12.0-14.7 [facility] NwanqehXPXGGZKZEB7227-99-85 10:37:00 Test Item Value Reference Range Interpretation Comments INR (test code = INR) 0.97 1 0.85-1.17 [facility] GiegdouZLOCKBXEED3075-32-15 10:37:00 Test Item Value Reference Range Interpretation Comments PTT (test code = PTT) 25.0 s 22.9-35.8 [facility] DdqzcmlNLGEXAKCPF4704-46-25 10:37:0070.5[facility] HermannHEMATOLOGY 2020-08-29 10:37:0018.8[facility] UcypuyjUUAWXJEZJY0284-94-61 10:37:009.5[facility] UmbsagiFRICCMRXUI7825-53-61 10:37:000.9[facility] TbdyabbWMFAIBEILO3387-75-89 10:37:000.3[facility] OncholmLOJXQWDCTT6910-12-45 10:37:004.8[facility] KFOWAGCNUH5552-00-68 10:37:001.3[facility] PhwkjgyNRKLRRQXUS5302-80-31 10:37:000.6 [facility] SbdceaoIZDZLCBHAV3204-99-45 10:37:000.1[facility] HermannHEMATOLOGY 2020-08-29 10:37:001+ *ABN*(08/29/20 5:37 AM)[facility] CjligvkKSDQEFSQLJ4804-65-34 10:37:00Not Detected (08/29/20 5:37 AM)[facility] HermannBLOOD BANK RESULTS 2020-08-29 10:37:00Negative (08/29/20 5:37 AM)[facility] HermannCHEM MTDTX5444-25-93 10:37:20631Pcydzrep HermannCHEM KDXSB4003-80-58 10:37:0028[facility] HermannCHEM PVYUM8057-11-01 10:37:001.01[facility] HermannCHEM WOWWG6443-92-25 10:37:96064 [facility] HermannCHEM WRIXY7117-25-60 10:37:003.8[facility] HermannCHEM PANEL 2020-08-29 10:37:82519Zixuqjtb HermannCHEM RNAEC3300-56-03 10:37:0028[facility] HermannCHEM GLHMY7442-91-71 10:37:009.8[facility] HermannCHEM PWTMH8596-32-11 10:37:0011.8[facility] HermannCHEM JXUZT4210-31-99 10:37:0059[facility] HermannCHEM ATBLN3891-56-38 10:37:002.9[facility] HvhhzodRMLIOITPII3467-38-62 10:37:006.8 [facility] XzgyckfNIGSUKBZVT1789-12-17 10:37:004.47[facility] HermannHEMATOLOGY 2020-08-29 10:37:0010.6[facility] UozihypBLBXKVITCS2128-06-95 10:37:0034.0[facility] UriignzDXPCCCTBBO0813-21-10 10:37:0076.1[facility] TkljmjwZZHQSMWGYW6130-09-24 10:37:00 Test Item Value Reference Range Interpretation Comments MCH (test code = MCH) 23.8 pg 27.0-31.[address] [facility] KnxsgcdIYMKDXWMQS0642-45-48 10:37:0031.3[facility] HermannHEMATOLOGY 2020-08-29 10:37:0018.2[facility] IsbggkpYVSPHYPCDF9464-12-29 10:37:15011Nxtqknai LqrwllgTVRCAMQEJP9887-63-22 10:37:007.5[facility] SqbebgaHTVCIJUWVN1721-37-08 10:37:00 Test Item Value Reference Range Interpretation Comments PT (test code = PT) 12.8 s 12.0-14.[address] [facility] HngoflpTBXKCNXJJX5554-71-78 10:37:00 Test Item Value Reference Range Interpretation Comments INR (test code = INR) 0.97 1 0.85-1.17 [facility] RhgbfxeMQCISGXGCW0997-38-11 10:37:00 Test Item Value Reference Range Interpretation Comments PTT (test code = PTT) 25.0 s 22.9-35.8 [facility] KhpbjbeASSDQZVWPC8281-39-48 10:37:0070.5[facility] HermannHEMATOLOGY 2020-08-29 10:37:0018.8[facility] OmwpgcyZCVMGNHYDC4150-12-56 10:37:009.5[facility] LwvwbgyZQNAAEWUJO9699-38-62 10:37:000.9[facility] NizfepyVAPAAAQEOH1003-95-09 10:37:000.3[facility] RbdzjkwIZFRKHUAKZ3667-86-00 10:37:004.8[facility] [place] [facility] CLKQDSSQLE7053-58-91 10:37:001.3[facility] IyxtcrdRFECLCDPCK0442-66-17 10:37:000.6 [facility] KngvsrxQIBUGTIZSI3149-80-31 10:37:000.1[facility] HermannHEMATOLOGY 2020-08-29 10:37:001+ *ABN*(08/29/20 5:37 AM)[facility] ZlrrtlkUZBERDDNTJ8801-94-15 10:37:00Not Detected (08/29/20 5:37 AM)[facility] HermannBLOOD BANK RESULTS 2020-08-29 10:37:00Negative (08/29/20 5:37 AM)[facility] HermannCHEM EIOTX9836-35-71 10:37:16751Galhxnvy HermannCHEM OPVNJ4553-84-61 10:37:0028[facility] HermannCHEM QXQQN7877-14-44 10:37:001.01[facility] HermannCHEM ZPTPH3225-68-45 10:37:29486 [facility] HermannCHEM PYSNC2003-45-36 10:37:003.8[facility] HermannCHEM PANEL 2020-08-29 10:37:55046Utcwdieh HermannCHEM JFSED1789-39-48 10:37:0028[facility] HermannCHEM KDZMX6472-10-19 10:37:009.8[facility] HermannCHEM ULQUH8007-95-35 10:37:0011.8[facility] HermannCHEM TQYQF4244-57-19 10:37:0059[facility] HermannCHEM SCQAT7561-57-83 10:37:002.9[facility] LakkcnnPUSVJYOGLC9195-53-70 10:37:006.8 [facility] ZwaocnsJJYUJYSMOC2026-71-87 10:37:004.47[facility] HermannHEMATOLOGY 2020-08-29 10:37:0010.6[facility] DcdeosiUJWARUCSNO9280-45-40 10:37:0034.0[facility] HtduciwQEFFLEBPBB2417-27-22 10:37:0076.1[facility] MsvrivbLZFPDBIIJJ4218-42-85 10:37:00 Test Item Value Reference Range Interpretation Comments MCH (test code = MCH) 23.8 pg 27.0-31.[address] [facility] YeglexpVFNENHINTU0602-80-89 10:37:0031.3[facility] HermannHEMATOLOGY 2020-08-29 10:37:0018.2[facility] KjhtddiQTVBVWSLEH0120-16-65 10:37:67974Jrnwzhpn DhbduoeICXNPEEDKX9418-51-07 10:37:007.5[facility] CjicjmqLPVSMPRBRL6229-04-50 10:37:00 Test Item Value Reference Range Interpretation Comments PT (test code = PT) 12.8 s 12.0-14.[address] [facility] CxmtvdqYWTXVJOJAD6789-39-98 10:37:00 Test Item Value Reference Range Interpretation Comments INR (test code = INR) 0.97 1 0.85-1.[address] [facility] OshjuohUMYECUIOJE2257-49-28 10:37:00 Test Item Value Reference Range Interpretation Comments PTT (test code = PTT) 25.0 s 22.9-35.[address] [facility] LumdhsyVKFJSVWAWX7158-62-14 10:37:0070.5[facility] HermannHEMATOLOGY 2020-08-29 10:37:0018.8[facility] NhoeyzrYGBQWUHCFU4187-40-03 10:37:009.5[facility] ExfrfykEIHYCIMKYM6688-19-89 10:37:000.9[facility] RefijxxLBLGCRMMCW5127-05-63 10:37:000.3[facility] QypcvqyPJYQWESWQJ0591-14-84 10:37:004.8[facility] [place] JNAEAVIMJY2856-07-89 10:37:001.3[facility] YchabigKLESNLHJOV1476-94-44 10:37:000.6 [facility] SufzkslBNBWGGSQHD3154-45-51 10:37:000.1[facility] HermannHEMATOLOGY 2020-08-29 10:37:001+ *ABN*(08/29/20 5:37 AM)[facility] XsmpldqLRJMIEPCND9208-67-29 10:37:00Not Detected (08/29/20 5:37 AM)[facility] HermannBLOOD BANK RESULTS 2020-08-29 10:37:00Negative (08/29/20 5:37 AM)[facility] HermannCHEM EYAPN1440-96-25 10:37:11132Bmoccaem HermannCHEM PPHBQ4734-56-68 10:37:0028[facility] HermannCHEM RSHFS6937-28-75 10:37:001.01[facility] HermannCHEM KGUNW5237-09-00 10:37:78437 [facility] HermannCHEM KUFRO6094-59-94 10:37:003.8[facility] HermannCHEM PANEL 2020-08-29 10:37:91946Vizvwhav HermannCHEM MMQMA7485-53-97 10:37:0028[facility] HermannCHEM EXQAC5205-27-88 10:37:009.8[facility] HermannCHEM ROIIB1443-98-05 10:37:0011.8[facility] HermannCHEM ZSZYC6028-18-84 10:37:0059[facility] HermannCHEM LSZNR1387-49-80 10:37:002.9[facility] UcqhxhvMHBEFYQIBL8575-01-32 10:37:006.8 [facility] KqntvtrPENZYBQHOI9450-46-84 10:37:004.47[facility] HermannHEMATOLOGY 2020-08-29 10:37:0010.6[facility] UjaowgfVJMJEHKDHE0321-07-91 10:37:0034.0[facility] LznldhqZTYLLOVQUC6632-55-90 10:37:0076.1[facility] UbrodykCNUBLIPMTI3408-75-30 10:37:00 Test Item Value Reference Range Interpretation Comments MCH (test code = MCH) 23.8 pg 27.0-31.0 [facility] SlyqyrrPNKTUWXGMQ9774-59-04 10:37:0031.3[facility] HermannHEMATOLOGY 2020-08-29 10:37:0018.2[facility] VigbllpPODEKZYIJA3053-22-79 10:37:29360Kdrgvdtr XmabderBOMBTRLYPW9158-46-22 10:37:007.5[facility] XwtlgtxSUZHTPKSCK4651-60-58 10:37:00 Test Item Value Reference Range Interpretation Comments PT (test code = PT) 12.8 s 12.0-14.7 [facility] GnlmxycXDIXUVTQLQ9675-39-72 10:37:00 Test Item Value Reference Range Interpretation Comments INR (test code = INR) 0.97 1 0.85-1.17 [facility] CcwftilXWUAEMNPIG6554-09-27 10:37:00 Test Item Value Reference Range Interpretation Comments PTT (test code = PTT) 25.0 s 22.9-35.8 [facility] QbjehigRPZJFHOJDN3467-71-16 10:37:0070.5[facility] HermannHEMATOLOGY 2020-08-29 10:37:0018.8[facility] MgtlmewSEZMCQQQOC4373-73-05 10:37:009.5[facility] XreekfuDVBPRTLSWS8616-41-80 10:37:000.9[facility] PtrfaenWGRHOKXWTV6537-25-79 10:37:000.3[facility] DcbuxcxSGQHHFJNGJ9389-83-13 10:37:004.8[facility] [place] FEYISCYYOG5955-59-26 10:37:001.3[facility] AbscxfvVXTBYQXOLY8742-67-38 10:37:000.6 [facility] JgvqagpBMFQGGXLFO5066-32-95 10:37:000.1[facility] HermannHEMATOLOGY 2020-08-29 10:37:001+ *ABN*(08/29/20 5:37 AM)[facility] IkfhaqiZRSDQCPNIL3488-56-61 10:37:00Not Detected (08/29/20 5:37 AM)[facility] HermannBLOOD BANK RESULTS 2020-08-29 10:37:00Negative (08/29/20 5:37 AM)[facility] HermannCHEM YTZSJ4133-24-11 10:37:21944Lxvdbnhq HermannCHEM VCHIX2769-21-06 10:37:0028[facility] HermannCHEM AWPGO7398-73-06 10:37:001.01[facility] HermannCHEM VXBUN7218-53-15 10:37:67447 [facility] HermannCHEM UVOSP0084-05-08 10:37:003.8[facility] HermannCHEM PANEL 2020-08-29 10:37:34745Rdnvkkoz HermannCHEM KUYGO2871-68-54 10:37:0028[facility] HermannCHEM DQIIT1548-51-76 10:37:009.8[facility] HermannCHEM QGZGA2656-88-10 10:37:0011.8[facility] HermannCHEM FTNDU0981-95-46 10:37:0059[facility] HermannCHEM EVZGF8955-40-44 10:37:002.9[facility] QkmncmaPTEQTNSTFU8098-56-59 10:37:006.8 [facility] GmrhdstQGBDXJGKNU3480-66-85 10:37:004.47[facility] HermannHEMATOLOGY 2020-08-29 10:37:0010.6[facility] KjjhyyvVRRTGHBYDX2539-40-85 10:37:0034.0[facility] EfbomdkSPFXLKMGZH6205-77-17 10:37:0076.1[facility] IzxttotGXMAJNEKPZ4075-26-08 10:37:00 Test Item Value Reference Range Interpretation Comments MCH (test code = MCH) 23.8 pg 27.0-31.0 [facility] RiubskfZKSSHUDBAC9283-52-67 10:37:0031.3[facility] HermannHEMATOLOGY 2020-08-29 10:37:0018.2[facility] CvufvloAINNPJBGGE7719-29-52 10:37:37652Ybveaglm TtcxhpqQOVTKTOLXW3858-88-91 10:37:007.5[facility] SsppmhpUQROFIZIDT4779-86-77 10:37:00 Test Item Value Reference Range Interpretation Comments PT (test code = PT) 12.8 s 12.0-14.7 [facility] FxyttjkJTIUXMHKBV2485-95-91 10:37:00 Test Item Value Reference Range Interpretation Comments INR (test code = INR) 0.97 1 0.85-1.17 [facility] GtbjdacRPDQVIWRHJ6696-37-76 10:37:00 Test Item Value Reference Range Interpretation Comments PTT (test code = PTT) 25.0 s 22.9-35.8 [facility] ZzhmbwyOAACPBSARI2632-45-03 10:37:0070.5[facility] HermannHEMATOLOGY 2020-08-29 10:37:0018.8[facility] AngckgwHHPMIVIHPK0826-89-15 10:37:009.5[facility] YufvufgFVAWJHBOIA4275-74-76 10:37:000.9[facility] SxcqhgxAQTKZKDXIY4727-67-05 10:37:000.3[facility] NkxlygsMQHUCVBVEX9552-34-12 10:37:004.8[facility] PVDTLSLJWN0969-07-66 10:37:001.3[facility] UileypjXEJIBRAFVO3205-20-53 10:37:000.6 [facility] KvcijdoBZEZOZYFBM5572-92-18 10:37:000.1[facility] HermannHEMATOLOGY 2020-08-29 10:37:001+ *ABN*(08/29/20 5:37 AM)[facility] RwkkocpWLTVOOUJXL7049-48-06 10:37:00Not Detected (08/29/20 5:37 AM)[facility] HermannBLOOD BANK RESULTS 2020-08-29 10:37:00Negative (08/29/20 5:37 AM)[facility] HermannCHEM SHKMZ0554-30-37 10:37:96870Zkhrqbrv HermannCHEM UJUQI8371-70-52 10:37:0028[facility] HermannCHEM MLHQQ6331-49-27 10:37:001.01[facility] HermannCHEM APNPL2263-28-28 10:37:93259 [facility] HermannCHEM NKVQB9062-68-74 10:37:003.8[facility] HermannCHEM PANEL 2020-08-29 10:37:72041Bazvboum HermannCHEM JDOVQ4879-27-17 10:37:0028[facility] HermannCHEM XOUKT8499-17-77 10:37:009.8[facility] HermannCHEM PRCFX3541-37-23 10:37:0011.8[facility] HermannCHEM UBBMN8253-56-47 10:37:0059[facility] HermannCHEM WVJHK7400-16-12 10:37:002.9[facility] QtepyeyUOHDZNTRVN8954-31-59 10:37:006.8 [facility] UejeckzCMFNUGKJKS9670-12-41 10:37:004.47[facility] HermannHEMATOLOGY 2020-08-29 10:37:0010.6[facility] WxqiljpADFEZLEFGK4334-11-15 10:37:0034.0[facility] HvpcaemRUOGYOUETP2762-74-85 10:37:0076.1[facility] NrtmoteTUPGOSEIIT6688-96-63 10:37:00 Test Item Value Reference Range Interpretation Comments MCH (test code = MCH) 23.8 pg 27.0-31.[address] [facility] IofhjozBPZKBZLALY1612-54-48 10:37:0031.3[facility] HermannHEMATOLOGY 2020-08-29 10:37:0018.2[facility] TtqxhcuOSDDAIHZYP9729-29-06 10:37:56323Ywlmugho CiyolayMEMLDWQEAC3536-95-49 10:37:007.5[facility] JcnomoqNPFVAWQNOZ0587-90-36 10:37:00 Test Item Value Reference Range Interpretation Comments PT (test code = PT) 12.8 s 12.0-14.[address] [facility] HjiynqfULIOPQYJDH3805-04-87 10:37:00 Test Item Value Reference Range Interpretation Comments INR (test code = INR) 0.97 1 0.85-1.[address] [facility] AwprcwbMCSBOTGYBQ8452-42-49 10:37:00 Test Item Value Reference Range Interpretation Comments PTT (test code = PTT) 25.0 s 22.9-35.[address] [facility] ElzelcnMOFGSLECSZ1358-68-06 10:37:0070.5[facility] HermannHEMATOLOGY 2020-08-29 10:37:0018.8[facility] IzlcbfvWBSPUZAEOM5447-74-82 10:37:009.5[facility] IgnckrnHTZYZPTXKJ7352-05-43 10:37:000.9[facility] FawphciSHLQGDQSSY7836-01-69 10:37:000.3[facility] JwgixhaVBJMNFJLHK0637-89-00 10:37:004.8[facility] QDPVHDXQRO4421-55-79 10:37:001.3[facility] XpozgvvZPZVJAJYFF8768-77-24 10:37:000.6 [facility] XvlijpqTFCSAXPSQU6883-85-08 10:37:000.1[facility] HermannHEMATOLOGY 2020-08-29 10:37:001+ *ABN*(08/29/20 5:37 AM)[facility] RrthbgxYPQIONESTW3195-29-32 10:37:00Not Detected (08/29/20 5:37 AM)[facility] HermannBLOOD BANK RESULTS 2020-08-29 10:37:00Negative (08/29/20 5:37 AM)[facility] HermannCHEM FPCZU0093-23-07 10:37:08284Ooezzhqa HermannCHEM JKACC3077-79-88 10:37:0028[facility] HermannCHEM WTGPF1575-95-20 10:37:001.01[facility] HermannCHEM KAVGR4276-63-23 10:37:30977 [facility] HermannCHEM TLGYY2827-14-77 10:37:003.8[facility] HermannCHEM PANEL 2020-08-29 10:37:09421Qrulnrdn HermannCHEM RWFSK7392-42-40 10:37:0028[facility] HermannCHEM AOSGB5651-33-13 10:37:009.8[facility] HermannCHEM CUOHI8086-36-72 10:37:0011.8[facility] HermannCHEM FGPVP3462-85-75 10:37:0059[facility] HermannCHEM UIAST5478-99-93 10:37:002.9[facility] UlkouzlIAKTRSXSNH4718-23-63 10:37:006.8 [facility] FwwcydeJUQJBKUEYX4385-27-78 10:37:004.47[facility] HermannHEMATOLOGY 2020-08-29 10:37:0010.6[facility] DudpeatEZRLUPXOAR0712-71-59 10:37:0034.0[facility] XxkfcbeGRCWOBXHQU1272-90-47 10:37:0076.1[facility] SaugxroBLTPCECERM4264-66-26 10:37:00 Test Item Value Reference Range Interpretation Comments MCH (test code = MCH) 23.8 pg 27.0-31.0 [facility] FunfhnqWKKZRIQDPL5743-34-86 10:37:0031.3[facility] HermannHEMATOLOGY 2020-08-29 10:37:0018.2[facility] EaboludGREVNDWOEL6063-11-55 10:37:58179Dvcikhhy EjglxprUGGFKDAYYO2277-64-39 10:37:007.5[facility] LvlgnhiHBHVDTAUHK1069-02-03 10:37:00 Test Item Value Reference Range Interpretation Comments PT (test code = PT) 12.8 s 12.0-14.7 [facility] ZynvvquCZTPKDSRHR0409-92-76 10:37:00 Test Item Value Reference Range Interpretation Comments INR (test code = INR) 0.97 1 0.85-1.17 [facility] IqthlwmASXJKKZSSH2342-99-06 10:37:00 Test Item Value Reference Range Interpretation Comments PTT (test code = PTT) 25.0 s 22.9-35.8 [facility] SgxgkfqGOQJZDHPRL4314-95-01 10:37:0070.5[facility] HermannHEMATOLOGY 2020-08-29 10:37:0018.8[facility] UtutgjtVWZAEEMRIQ3368-01-53 10:37:009.5[facility] UhmwrzyIFZPKVYYLD6795-40-48 10:37:000.9[facility] LhtmakpCOSVKFNYWI3636-55-07 10:37:000.3[facility] EsbzorsBIZVJXZHDQ6729-20-56 10:37:004.8[facility] FWEZDWWFWT4736-38-11 10:37:001.3[facility] KpesribXBEXGGTHRN6103-38-78 10:37:000.6 [facility] CbqikfpJDISXRDTFW7087-03-32 10:37:000.1[facility] 2020-08-29 10:37:001+ *ABN*(08/29/20 5:37 AM)[facility] LxroeknVOPVRGRPBJ6868-34-74 10:37:00Not Detected (08/29/20 5:37 AM)[facility] HermannCHLAMYDIA, GC, TV,PCR, IN [id number] 15:38:00 Test Item Value Reference Range Interpretation Comments FT (test code = CHTR) Not detected (qualifier Not Detected N value) FT (test code = Not detected (qualifier Not Detected N NGONO) value) FT (test code = TRVG) Not detected (qualifier Not Detected N value) [facility] [id number] 10:57:00 Test Item Value Reference Range Interpretation Comments Color (test code = UCOLR) Dk. Yellow Clarity (test code = UCLAR) Hazy Glucose (test code = UGLUC) NEGATIVE NEGATIVE N Bilirubin (test code = UBILI) NEGATIVE NEGATIVE N Ketones (test code = UKET) NEGATIVE NEGATIVE N Specific Hortense (test code = 1.025 1.005-1.030 A USPGR) [...] Notes Date/Time Note Provider Source 2021-08-05 14:08:00-00:00 [id number] [address] PATIENT NAME: MARJAN FLEMING ADMIT DATE: 08/05/21 ACCOUNT NO: [id number] ROOM NO: AGE: 66 REPORT TYPE: eTRANSESOPHAGEAL ECHO REPORT SEX: F ADMITTING PHYSICIAN: ATTENDING PHYSICIAN:Mike Lund MD *[facility]* [address] [place] [address] [place] [address] Transesophageal Echocardiogram Patient: Marjan Fleming Study Date: 08/05/2021 BP: 158 / 92 Location: [facility] URN: [id number] : 1955 Age: 66 Height: / Gender: F Weight: / BMI/BSA: / *Ordering Physician: * Mike Lund *Interpreting Physician: * Ashely Mckeon MD *Nurse Practitioner Physician Assistant: * Odessa Interiano Indications: POST WATCHMAN. Study [...] benzocaine spray. A transesophageal probe (SN: [id number]) was inserted by the attending kidney trimmer without difficulty. L ocation: CV PREP. Patient [...] benzocaine spray. A transeso phageal probe (SN: [id number]) was inserted by the attending cardiolog ist [...] PATIENT NAME: MARJAN FLEMING 1 2021-06-24 11:18:00-00:00 [id number] [place] [id number] PATIENT NAME: MARJAN FLEMING ADMIT DATE: 06/17/21 ACCOUNT NO: [id number] ROOM NO: ADDIS AGE: 66 REPORT TYPE: eTRANSESOPHAGEAL ECHO REPORT SEX: F ADMITTING PHYSICIAN:Mike Lund MD ATTENDING PHYSICIAN:Mike Lund MD *[address] [place] [address] Transesophageal Echocardiogram for [place] Patient: Marjan Fleming Study Date: 06/17/2021 BP: Location: [facility] URN: [id number] : 1955 Age: 66 Height: / Gender: [...] setup: The patient was brought to the [facility] in the fasting state.Intravenous access was obtained. Surface E CG leads, blood pressure measurements, and pulse oximetric signals were m onitored. Sedation. Sedation was administered by anesthesiology samreen rodas. Transesophageal echocardiography was performed. A transesophagea l probe was inserted by the anesthesiologist. Images were obtained using a [employer] cardiac ultrasound machine. Location: Catheterization laboratory. Christian woodruff completion: The patient tolerated the procedure well. There were no complications. Findings Conclusions Summary: PATIENT NAME: MARJAN FLEMING 7 1. Study data: Transesophageal Echocardiogram fo r Watchman. 2. Procedure narrative: Transesophageal echocard iography was performed. A transesophageal probe was inserted by the ane sthesiologist. Images were obtained using a [employer] cardiac ultrasound mac dalton. Impressions: Patient with [...] stable. Right groin suture removed by this PROFESSOR OF LAW. No infect ion, bleeding, or hematoma. Dermabond applied and intact. Patient was provided with post-Watchman discharg e instructions. Patient is to follow up with PCP and kidney trimmer in 1 t o 2 weeks post discharge. Patient is to follow up with kidney trimmer for th e 45-day WESLEY, and for anticoagulation recommendation. Prepared and electronically signed by Ashely Mckeon MD 06/24/2021 11:18 Electronically Signed by Mike Lund MD on at 1118 PATIENT NAME: MARJAN FLEMING 7 2021-06-17 18:10:00-00:00 [id number] [place] [address] PATIENT NAME: MARJAN FLEMING ADMIT DATE: 06/17/21 ACCOUNT NO: [id number] ROOM NO: ADDIS AGE: 66 REPORT TYPE: eECHOCARDIOGRAM REPORT SEX: F ADMITTING PHYSICIAN:Mike Lund MD ATTENDING PHYSICIAN:Mike Lund MD *[place] [address] Limited Transthoracic Echocardiogram Patient: Marjan Fleming Study Date: 06/17/2021 BP: 117 / 82 Location: [facility] URN: [id number] 2647 : 1955 Age: 66 Height: 64 in / 162.6 cm Gender: F Weight: 210 lb / 95.5 kg BMI/BSA: 36.1 kg/m 2 / 2.12 m 2 *Ordering Physician: * Bahman Choprap *Interpreting Physician: * Kevin Merino MD *Nurse Practitioner Physician Assistant: * Tiarra Loja Indications: Post Watchman/Rule out pericardial effusion. Study data: Transthoracic echocardiogram, limite d study. Procedure: Transthoracic echocardiography was performed. Im age quality was adequate. Limited 2D and limited spectral Dopple r. Location: [facility]. Patient status: Outpatient. Study status: Routin [...] MARJAN FLEMING 7 2021-06-17 11:12:00-00:00 [facility]L [facility] ([facility]) Discharge Summary REPORT#:[id number] REPORT STATUS: Signed DATE:06/17/21 TIME: 1112 PATIENT: MARJAN FLEMING UNIT #: [id number] ROOM/BED: [place] [address] : [birth year] AGE: 67 SEX: F ATTEND: René Lund MD ADM AUTHOR: Bahman Chopra * ALL edits or amendments must be made on the Hyper[employer]/computer document * PCP PCP Discharge to: home [...] stable. Right groin suture removed by this PROFESSOR OF LAW. No infect ion, bleeding, or hematoma. Dermabond applied and intact. Patient was provided with post-Watchman discharg e instructions. Patient is to follow up with PCP and kidney trimmer in 1 to 2 we eks post discharge. Patient is to follow up with kidney trimmer for th e 45-day WESLEY, and for [...] breath, lightheadedness, or dizzi ness to the kidney trimmer. Dispo: It is medically necessary that patients [...] Temp 36.0 06/17 628 Pulse 62 06/17 628 Resp 18 06/17 628 24 hour I [...] distress GI: soft, non-tender Extremities: moves all Neuro/ACOUSTICAL INSTALLER: alert, oriented X 3 Skin: dry Wound/incision: Location: Right groin suture removed by this PROFESSOR OF LAW. No infect ion, bleeding, or hematoma. Dermabond [...] Mike Lund MD on 07/14 at 0946 [facility] #:[id number] END OF REPORT 2021-06-17 09:43:00-00:00 [id number] [place] [id number] PATIENT NAME: MARJAN FLEMING ADMIT DATE: 06/17/21 ACCOUNT NO: [id number] ROOM NO: ADDIS AGE: 66 REPORT TYPE: eELECTROCARDIOGRAM REPORT SEX: F ADMITTING PHYSICIAN:Mike Lund MD ATTENDING PHYSICIAN:Mike Lund MD Order: [id number] Test Reason : S/P WATCHMAN Test Date/Time [...] PATIENT NAME: MARJAN FLEMING 7 2021-06-17 08:54:00-00:00 [phone] [place] [address] PATIENT NAME: MARJAN FLEMING ADMIT DATE: 06/17/21 ACCOUNT NO: [id number] ROOM NO: [facility] AGE: 66 REPORT TYPE: CARDIAC CATHETERIZATION REPORT SEX: F ADMITTING PHYSICIAN:Mike Lund MD ATTENDING PHYSICIAN:Mike Lund MD PROCEDURE DATE: 06/17/2021 PROCEDURE PERFORMED: Left atrial appendage closu re using a 24 mm Watchman FLX closure device. ACCESS: Right femoral vein, 16-Czech closed wit h iyjxuk-mp-mynbe suture. DAIRY SCIENTIST: Mike Lnud MD. SECONDARY DESIGN ENGINEERING INTERN: Kevin Merino MD. COMPLICATIONS: None. BLEEDING: Less [...] I accessed right femo ral vein, placed 8-Czech [place] sheath. Subsequently, upgraded to 16-Czech sheath and gave a partial dose of heparin, then took the SL1 sheat h into the SVC over a wire with [place] needle inside, descended under the fluor oscopy [...] I removed the Watchman sheath and the 16-Czech sheath and placed axtikd-cp-aqasf suture for hemostasis, then achieved a good hemo stasis. CONCLUSION: Left atrial appendage closure using a 24 mm Watchman FLX closure PATIENT NAME: MARJAN FLEMING 7 device. Dictated By: Mike Lund MD WT: CATH:GAYLE/RIKY/ALLA Conf#: [id number]/DID#: [id number] Authenticated by Mike Lund MD On 07/01/2021 12:30:01 PM Electronically Signed by Mike Lund MD on at 1230 PATIENT NAME: MARJAN FLEMING 7 2021-06-16 10:36:00-00:00 [phone] [address] PATIENT NAME: MARJAN FLEMING ADMIT DATE: ACCOUNT NO: [id number] ROOM NO: AGE: 66 REPORT TYPE: eELECTROCARDIOGRAM REPORT SEX: F ADMITTING PHYSICIAN: ATTENDING PHYSICIAN:Mike Lund MD Order: [id number] Test Reason : PREOP Test Date/Time Stamp: [...] Prolonged QT Abnormal ECG PRE_OP Confirmed by PHILLIP JENKINS, ARMANDO ([id number]) on 06/16/19 11:29:35 AM Referred By: Mike Lund Confirmed by:ARMANDO RICHARDS MD at 1123 PATIENT NAME: MARJAN FLEMING 7"
--- NOTE | 2022-11-09 13:22 | RAD REPORT ---
EXAM DESCRIPTION: Patrick Single View11/09/2022 12:46 pm CLINICAL HISTORY: Chest pain COMPARISON: October 2022 FINDINGS: The lungs appear clear of acute infiltrate. The heart is mildly to moderately enlarged IMPRESSION: No acute abnormalities displayed
[2022-11-09 13:28] LABS: Lymphocytes % 20.9 % (15.3-44.8); MCV 82.7 fL (80-100); MPV 7.1 fL (7.6-11.3); RBC Red Blood Cell Count 4.59 M/uL (3.86-4.86)
[2022-11-09 13:31] LABS: Protime INR 0.99
[2022-11-09 13:46] LABS: Albumin 3.5 g/dL (3.4-5.0); Bilirubin Direct 0.2 mg/dL (0-0.2); Bilirubin Indirect, Calculated 0.2 mg/dL (0.2-0.8); Bilirubin Total 0.4 mg/dL (0.2-1.0); Magnesium 2.4 mg/dL (1.6-2.4); Potassium 3.1 mEq/L (3.5-5.1); Protein, Total 7.4 g/dL (6.4-8.2); Troponin High Sensitivity 20.4 pg/mL (<58.9)
[2022-11-09 14:05] LABS: Specific Gravity 1.018 (1.005-1.030); Urine Bacteria None Seen /HPF (<20); Urine Bilirubin NEGATIVE (Negative); Urine Blood Trace (Negative); Urine Clarity Clear (Clear); Urine Color Light-Yellow (Yellow); Urine Glucose NEGATIVE (Negative); Urine Mucus Slight /HPF (None Seen); Urine Protein TRACE (Negative); Urine Urobilinogen Normal (Normal)
--- NOTE | 2022-11-09 15:01 | ER ---
Nurse's Notes [facility] Name: Marjan Kolb Age: 67 yrs Sex: Female : 1955 Arrival Date: 11/09/2022 Time: 12:16 Bed 19 Private MD: Diagnosis: Chest pain, unspecified;Essential (primary) hypertension;Hypokalemia;Asymptomatic human immunodeficiency virus [HIV] infection status;Dyspnea Presentation: 11/09 12:18 Chief complaint: EMS states: patient from home via EMS. here yesterday for similar db complaint. SOB, left under breast CP, fall yesterday. Bruise to face. states took BP medication. hypertensive. Coronavirus screen: Vaccine status: Patient reports receiving the 2nd dose of the covid vaccine. Client denies travel out of the [place] in the last 14 days. At this time, the client does not indicate any symptoms associated with coronavirus-19. Ebola Screen: Patient negative for fever greater than or equal to 101.5 degrees Fahrenheit, and additional compatible Ebola Virus Disease symptoms Patient denies exposure to infectious person. Patient denies travel to an Ebola-affected area in the 21 days before illness onset. No symptoms or risks identified at this time. Initial Sepsis Screen: Does the patient meet any 2 criteria? No. Patient's initial sepsis screen is negative. Does the patient have a suspected source of infection? No. Patient's initial sepsis screen is negative. Risk Assessment: Do you want to hurt yourself or someone else? Patient reports no desire to harm self or others. Onset of symptoms was November 09, 2022. 12:18 Method Of Arrival: EMS: [facility] db 12:18 Acuity: BLAYNE 2 db Triage Assessment: 12:27 General: Appears in no apparent distress. comfortable, Behavior is calm, cooperative. db Pain: Complains of pain in chest. Cardiovascular: Reports chest pain, Capillary refill < 3 seconds. Respiratory: Airway is patent Respiratory effort is even, unlabored, Respiratory pattern is regular, symmetrical. Historical: - Allergies: 12:27 Azithromycin; db 12:27 Bactrim; db 12:27 butorphanol; db 12:27 Fentanyl; db 12:27 Reglan; db 12:27 Sulfa (Sulfonamide Antibiotics); db 12:27 TRIMETHOPRIM; db - Home Meds: 12:27 Metoprolol Tartrate Oral [Active]; lisinopril Oral [Active]; db - PMHx: 12:27 angina pectoris; angina pectoris; Atrial fibrillation; Bipolar disorder; esophageal db varicies; Hepatitis; HIV positive; Hypertensive disorder; Anxiety; Migraine; panic attack; - Immunization history:: Adult Immunizations unknown, Client reports receiving the 2nd dose of the Covid vaccine. - Social history:: Smoking status: Patient/guardian denies using tobacco, the patient reports quitting approximately 2 years ago. - Family history:: not pertinent. Screenin:25 [facility] ED Fall Risk Assessment (Adult) History of falling in the last 3 months, db including since admission Yes- fall prone (multiple falls) (3 pts) Confusion or Disorientation No (0 pts) Intoxicated or Sedated No (0 pts) Impaired Gait Yes (1 pt) Mobility Assist Device Used Yes (1 pt) Altered Elimination No (0 pt) Score/Fall Risk Level 3 or more points = High Risk Oriented to surroundings, Maintained a safe environment, Hourly rounding (assess needs \T\ fall precautionary measures) done, Remained with patient while ambulating. Abuse screen: Denies threats or abuse. Denies injuries from another. Nutritional screening: No deficits noted. Tuberculosis screening: No symptoms or risk factors identified. Assessment: 12:29 Reassessment: see triage for assessment. db 13:24 Reassessment: Patient appears in no apparent distress at this time. Patient and/or db family updated on plan of care and expected duration. Pain level reassessed. Patient is alert, oriented x 3, equal unlabored respirations, skin warm/dry/pink. patient to restroom via wheelchair. General: Appears in no apparent distress. comfortable, Behavior is calm, cooperative. Pain: Complains of pain in chest Pain does not radiate. Pain currently is 10 out of 10 on a pain scale. Pain began suddenly. Respiratory: Reports shortness of breath Airway is patent Respiratory effort is even, unlabored, Respiratory pattern is regular, symmetrical. 14:40 Reassessment: Dr. Kolb is at bedside. Pain: Complains of pain in right eye above db bruising. Derm: Bruising that is bright red, dark purple, on right eye. 15:51 Reassessment: Patient appears in no apparent distress at this time. Patient and/or db family updated on plan of care and expected duration. Pain level reassessed. Patient is alert, oriented x 3, equal unlabored respirations, skin warm/dry/pink. Patient states feeling better. Patient states symptoms have improved. Vital Signs: 12:18 BP 191 / 100; Pulse 61; Resp 16; Temp 98.4(O); Pulse Ox 96% ; Weight 78.93 kg; Height 5 db ft. 4 in. ; Pain 10/10; 12:30 BP 183 / 99; Pulse 58; Resp 16; Pulse Ox 96% on R/A; db 13:30 BP 189 / 122; Pulse 64; Resp 16; Pulse Ox 96% on R/A; db 14:30 BP 196 / 130; Pulse 63; Resp 18; Pulse Ox 97% on R/A; db 15:51 BP 184 / 111; Pulse 65; Resp 18; Pulse Ox 98% on R/A; db 12:18 Body Mass Index 29.87 (78.93 kg, 162.56 cm) db 12:18 Pain Scale: Adult db ED Course: 12:19 Patient arrived in ED. iw 12:19 Justus Kolb MD is Attending Physician. thomas 12:24 Alejandrina Fairchild RN is Primary Nurse. db 12:27 Triage completed. db 12:28 Arm band placed on Patient placed in an exam room. db 12:48 XRAY Chest (1 view) In Process Unspecified. EDMS 13:05 Placed in gown. Bed in low position. Call light in reach. Side rails up X 1. Client mb9 placed on continuous cardiac and pulse oximetry monitoring. NIBP monitoring applied. house repairer on. 13:20 Inserted saline lock: 24 gauge in right forearm, using aseptic technique. Blood mb9 collected. 14:58 Mike Lund MD is Referral Physician. thomas 15:51 No provider procedures requiring assistance completed. IV discontinued, intact, db bleeding controlled, No redness/swelling at site. Patient maintains SpO2 saturation greater than 95% on room air. Administered Medications: 15:05 Drug: hydrALAZINE IVP 10 mg Route: IVP; Site: right forearm; db 15:51 Follow up: Response: No adverse reaction db 15:05 Drug: Furosemide IVP 20 mg Route: IVP; Site: right forearm; db 15:51 Follow up: Response: No adverse reaction db 15:05 Drug: Aspirin PO Chewable Tablet 162 mg Route: PO; db 15:45 Follow up: Response: No adverse reaction db 15:06 Drug: Potassium PO Effervescent Tablet 50 mEq Route: PO; db 15:51 Follow up: Response: No adverse reaction db 15:22 Drug: HydrALAZINE PO 50 mg Route: PO; db 15:44 Follow up: Response: No adverse reaction db Medication: 15:51 VIS not applicable for this client. db Outcome: 15:00 Discharge ordered by . thomas 15:46 Patient left the ED. [place] 15:51 Discharged to home ambulatory, via wheelchair. db 15:51 Condition: stable 15:51 Discharge instructions given to patient, Instructed on discharge instructions, follow up and referral plans. 15:53 Instructed on Prescriptions given X 2. db Signatures: Dispatcher [employer] Justus Long MD MD cha Williams, Irene, RN Madyson Narayanan RN RN [id number] Alejandrina Fairchild RN RN Jessie Ortiz RN RN mb9
--- NOTE | 2022-11-09 15:01 | EDPHYS ---
Physician Documentation [facility] Name: Marjan Kolb Age: 67 yrs Sex: Female : 1955 Arrival Date: 11/09/2022 Time: 12:16 Bed 19 Private MD: Justus Cervantes HPI: 11/09 14:50 This 67 yrs old Female presents to ER via EMS with complaints of Chest Pain. thomas 14:50 The patient or guardian reports chest pain that is located primarily in the anterior thomas chest wall, left. Onset: 3 day(s) ago. The pain does not radiate. Associated signs and symptoms: Pertinent positives: shortness of breath. The chest pain is described as sharp. Modifying factors: The symptoms are alleviated by nothing. the symptoms are aggravated by movement, palpation of area. Severity of pain: At its worst the pain was mild in the emergency department the pain has improved mildly. The patient has experienced similar episodes in the past, multiple times. Historical: - Allergies: 12:27 Azithromycin; db 12:27 Bactrim; db 12:27 butorphanol; db 12:27 Fentanyl; db 12:27 Reglan; db 12:27 Sulfa (Sulfonamide Antibiotics); db 12:27 TRIMETHOPRIM; db - Home Meds: 12:27 Metoprolol Tartrate Oral [Active]; lisinopril Oral [Active]; db - PMHx: 12:27 angina pectoris; angina pectoris; Atrial fibrillation; Bipolar disorder; esophageal db varicies; Hepatitis; HIV positive; Hypertensive disorder; Anxiety; Migraine; panic attack; - Immunization history:: Adult Immunizations unknown, Client reports receiving the 2nd dose of the Covid vaccine. - Social history:: Smoking status: Patient/guardian denies using tobacco, the patient reports quitting approximately 2 years ago. - Family history:: not pertinent. ROS: 14:50 Constitutional: Negative for fever, chills, and weight loss, Eyes: Negative for injury, thomas pain, redness, and discharge, ENT: Negative for injury, pain, and discharge, Neck: Negative for injury, pain, and swelling, Abdomen/GI: Negative for abdominal pain, nausea, vomiting, diarrhea, and constipation, Back: Negative for injury and pain, : Negative for injury, bleeding, discharge, and swelling, MS/Extremity: Negative for injury and deformity, Skin: Negative for injury, rash, and discoloration, Neuro: Negative for headache, weakness, numbness, tingling, and seizure, Psych: Negative for depression, anxiety, suicide ideation, homicidal ideation, and hallucinations, Allergy/Immunology: Negative for hives, rash, and allergies, Endocrine: Negative for neck swelling, polydipsia, polyuria, polyphagia, and marked weight changes, Hematologic/Lymphatic: Negative for swollen nodes, abnormal bleeding, and unusual bruising. 14:50 Cardiovascular: Positive for chest pain, of the left lateral posterior chest and left lateral anterior chest. 14:50 Respiratory: Positive for shortness of breath. Exam: 14:50 Constitutional: This is a well developed, well nourished patient who is awake, alert, thomas and in no acute distress. Head/Face: Normocephalic, atraumatic. Eyes: Pupils equal round and reactive to light, extra-ocular motions intact. Lids and lashes normal. Conjunctiva and sclera are non-icteric and not injected. Cornea within normal limits. Periorbital areas with no swelling, redness, or edema. ENT: Nares patent. No nasal discharge, no septal abnormalities noted. Tympanic membranes are normal and external auditory canals are clear. Oropharynx with no redness, swelling, or masses, exudates, or evidence of obstruction, uvula midline. Mucous membranes moist. Neck: Trachea midline, no thyromegaly or masses palpated, and no cervical lymphadenopathy. Supple, full range of motion without nuchal rigidity, or vertebral point tenderness. No Meningismus. Chest/axilla: Normal chest wall appearance and motion. Nontender with no deformity. No lesions are appreciated. Cardiovascular: Regular rate and rhythm with a normal S1 and S2. No gallops, murmurs, or rubs. Normal PMI, no JVD. No pulse deficits. Respiratory: Lungs have equal breath sounds bilaterally, clear to auscultation and percussion. No rales, rhonchi or wheezes noted. No increased work of breathing, no retractions or nasal flaring. Abdomen/GI: Soft, non-tender, with normal bowel sounds. No distension or tympany. No guarding or rebound. No evidence of tenderness throughout. Back: No spinal tenderness. No costovertebral tenderness. Full range of motion. Female : Normal external genitalia. Skin: Warm, dry with normal turgor. Normal color with no rashes, no lesions, and no evidence of cellulitis. MS/ Extremity: Pulses equal, no cyanosis. Neurovascular intact. Full, normal range of motion. Neuro: Awake and alert, GCS 15, oriented to person, place, time, and situation. Cranial nerves II-XII grossly intact. Motor strength 5/5 in all extremities. Sensory grossly intact. Cerebellar exam normal. Normal gait. Psych: Awake, alert, with orientation to person, place and time. Behavior, mood, and affect are within normal limits. 14:50 ECG was reviewed by the Attending Physician. Vital Signs: 12:18 BP 191 / 100; Pulse 61; Resp 16; Temp 98.4(O); Pulse Ox 96% ; Weight 78.93 kg; Height 5 db ft. 4 in. ; Pain 10/10; 12:30 BP 183 / 99; Pulse 58; Resp 16; Pulse Ox 96% on R/A; db 13:30 BP 189 / 122; Pulse 64; Resp 16; Pulse Ox 96% on R/A; db 14:30 BP 196 / 130; Pulse 63; Resp 18; Pulse Ox 97% on R/A; db 15:51 BP 184 / 111; Pulse 65; Resp 18; Pulse Ox 98% on R/A; db 12:18 Body Mass Index 29.87 (78.93 kg, 162.56 cm) db 12:18 Pain Scale: Adult db MDM: 12:19 Patient medically screened. [facility] 11/09 12:21 Order name: Basic Metabolic Panel; Complete Time: 14:49 11/09 12:21 Order name: CBC with Diff; Complete Time: 14:49 11/09 12:21 Order name: LFT's; Complete Time: 14:49 11/09 12:21 Order name: Magnesium; Complete Time: 14:49 11/09 12:21 Order name: NT PRO-BNP; Complete Time: 14:49 11/09 12:21 Order name: PT-INR; Complete Time: 14:49 11/09 12:21 Order name: Troponin HS; Complete Time: 14:49 11/09 12:21 Order name: Lipase; Complete Time: 14:49 11/09 12:21 Order name: Urinalysis W/Microscopic; Complete Time: 14:49 20 12:21 Order name: XRAY Chest (1 view); Complete Time: 14:49 [facility] 11/09 12:21 Order name: EKG; Complete Time: 12:22 [facility] 11/09 12:21 Order name: Cardiac monitoring; Complete Time: 12:32 [facility] 11/09 12:21 Order name: EKG - Nurse/Tech; Complete Time: 12:32 [facility] 11/09 12:21 Order name: IV Saline Lock; Complete Time: 14:13 [facility] 11/09 12:21 Order name: Labs collected and sent; Complete Time: 14:13 [facility] 11/09 12:21 Order name: O2 Per Protocol; Complete Time: 12:32 [facility] 11/09 12:21 Order name: O2 Sat Monitoring; Complete Time: 12:32 [facility] EC:50 Rate is 56 beats/min. Rhythm is regular. QRS [place] is Normal. [place] interval is normal. QRS thomas interval is normal. QT interval is normal. No Q waves. T waves are Normal. No ST changes noted. Clinical impression: LVH and Sinus bradycardia. Interpreted by me. Reviewed by me. Administered Medications: 15:05 Drug: hydrALAZINE IVP 10 mg Route: IVP; Site: right forearm; db 15:51 Follow up: Response: No adverse reaction db 15:05 Drug: Furosemide IVP 20 mg Route: IVP; Site: right forearm; db 15:51 Follow up: Response: No adverse reaction db 15:05 Drug: Aspirin PO Chewable Tablet 162 mg Route: PO; db 15:45 Follow up: Response: No adverse reaction db 15:06 Drug: Potassium PO Effervescent Tablet 50 mEq Route: PO; db 15:51 Follow up: Response: No adverse reaction db 15:22 Drug: HydrALAZINE PO 50 mg Route: PO; db 15:44 Follow up: Response: No adverse reaction db Disposition Summary: 11/09/22 15:00 Discharge Ordered Location: Home thomas Problem: new thomas Symptoms: have improved thomas Condition: Stable thomas Diagnosis - Chest pain, unspecified thomas - Essential (primary) hypertension thomas - Hypokalemia thomas - Asymptomatic human immunodeficiency virus [HIV] infection status thomas - Dyspnea thomas Followup: thomas - With: Private Physician - When: 2 - 3 days - Reason: Recheck today's complaints, Re-evaluation by your physician Followup: thomas - With: Mike Lund MD - When: 2 - 3 days - Reason: Recheck today's complaints, Re-evaluation by your physician Discharge Instructions: - Discharge Summary Sheet thomas - Nonspecific Chest Pain, Adult thomas - Potassium Content of Foods thomas - Hypertension, Adult thomas - Nonspecific Chest Pain, Adult, Sfki-hx-Kgzv thomas - Hypertension, Adult, Cizy-cp-Npup thomas - How to Take Your Blood Pressure, Mpmf-tp-[id number] thomas - Aspirin and Your Heart thomas - Managing Your Hypertension thomas Forms: - Medication Reconciliation Form thomas - Thank You Letter thomas - Antibiotic Education thomas - Prescription Opioid Use [facility] Prescriptions: - hydralazine 50 mg Oral tablet - take 1 tablet by ORAL route 3 times per day; 60 tablet; Refills: 0, Product thomas Selection Permitted - Plavix 75 mg Oral Tablet - take 1 tablet by ORAL route once daily; 20 tablet; Refills: 0, Product thomas Selection Permitted Signatures: Dispatcher [employer] Justus Long MD MD cha Benton, Danielle, RN RN db
[2022-11-09] MEDS ORDERED: FUROSEMIDE 20 MG/ 2ML VIAL ONE (15:08)
[2022-11-09] MEDS ORDERED: HYDRALAZINE HCL 20 MG/ML VIAL ONE (15:09)
[2022-11-09] MEDS ORDERED: POTASSIUM 25 MEQ EFFERV TAB ONE (15:09)
[2022-11-09] MEDS ORDERED: ASPIRIN EC 81 MG TAB PO ONE (15:09)
[2022-11-09] MEDS ORDERED: ASPIRIN 81 MG CHEWABLE TABLET ONE (15:10)
[2022-11-09] MEDS ORDERED: HYDRALAZINE HCL 25 MG TABLET ONE (15:29)
[2022-11-09 16:00] VITALS: TEMP 98.4
[2022-11-09 16:05] VITALS: BP 196/130; O2SAT 97
--- NOTE | 2022-11-10 19:12 | EKG ---
Test Date: 2022-11-09 Test Time: 12:34:38 Piston Maker: KYLEE MEASUREMENT RESULTS: Intervals: Rate: 56 WI: 176 QRSD: 96 QT: 526 QTc: 507 [place]: P: 81 WI: 176 QRS: 11 T: 246 INTERPRETIVE STATEMENTS: Sinus bradycardia with sinus arrhythmia Left ventricular hypertrophy with repolarization abnormality Abnormal ECG Compared to ECG 11/07/2022 07:49:17 Early repolarization now present Sinus rhythm no longer present ST (T wave) deviation no longer present Prolonged QT interval no longer present Electronically Signed On 11-10-22 19:09:39 CDT by Mike Lund
== END 2022-11-09 15:46 | disposition home or self-care (01) ==
LOC: ER 12:16
DX: R07.89 Other chest pain (principal); I10 Essential (primary) hypertension; E87.6 Hypokalemia; R06.00 Dyspnea, unspecified; Z21 Asymptomatic human immunodeficiency virus [HIV] infection status; Z88.1 Allergy status to other antibiotic agents; Z88.2 Allergy status to sulfonamides; Z88.5 Allergy status to narcotic agent; Z88.8 Allergy status to other drugs, medicaments and biological substances
CPT/HCPCS: 85025; 81001; 80048; 36415; 83735; 85610; 80076; 84484; 83690; 83880; 71045; J0360; J1940; 93005

== ENCOUNTER 2022-11-15 05:07 | Emergency (ER) | payer OTHER ==
--- OUTSIDE RECORDS SUMMARY | 2022-11-15 05:30 | XMS REPORT | Continuity of Care Document ---
:1955 Author Organization [facility] t Address [address] [facility] [place] [place] [address] Care Team Providers Name Role Phone Urmila [...] PAULETTE GRAY Attending Clinician Unavailable Paulette Galvan S Attending Clinician UNKNOWN, ATTENDING Attending Clinician Unavailable Robbi Bal Attending Clinician [facility] Attending Clinician Unavailable Isaias Whiteside RN Attending Clinician Unavailable TOMY MARIE Attending Clinician Unavailable Reilly Means MD Attending Clinician Ofe Shields MD Attending Clinician Tomy Marie MD Attending Clinician Doctor Unassigned, [place] Attending Clinician Unavailable Bill COLES Attending Clinician Unavailable Bill Rose Attending Clinician CHARITY MCALLISTER Attending Clinician Unavailable Charity Mcallister MD Attending Clinician GADIEL KOEHLER Attending Clinician Unavailable Mike Lund Attending Clinician Unavailable NIKOLAI REEVES Attending Clinician Unavailable Eliseo Arce MD Attending Clinician Carol Ann IZQUIERDO, Sarai Lieberman Attending Clinician [phone] Ashly Pelletier MA Attending Clinician Unavailable Dagoberto Bass MD Attending Clinician [place] Evangelista Attending Clinician Lab, Adc Fam Pob I Attending Clinician Unavailable Monica Rodas MA Attending Clinician Unavailable Agustina Ortiz MA Attending Clinician Unavailable Andrez RAMIREZ, Rody Attending Clinician Unavailable Johnathan Flood MDthi V. Attending Clinician HEMATPOURBEVERLY Attending Clinician Unavailable Caridad OIL LEASE OPERATOR, Gloria Attending Clinician Xiao RAMIREZ, Michael Corbin Attending Clinician Unavailable Team, [facility] Attending Clinician UnavailDO PORSHA Newell Attending Clinician Unavailable Rodo JENKINS, Gadiel Attending Clinician Tyrone JENKINS, Eveline Sierra Attending Clinician Stanislav RAMIREZ, Eladio Inman Attending Clinician Unavailable Geraldine SALGUERO, Leyda Attending Clinician [phone] Selvin RAMIREZ, Stefanie Attending Clinician Unavailable HOME MATTHEWS Admitting Clinician Unavailable ANETTE OLEA Admitting Clinician Unavailable TOMY MARIE Admitting Clinician Unavailable Tomy Marie MD Admitting Clinician Bill COLES Admitting Clinician Unavailable Lacey UrmilaGregoriaFrancisco Kristen Admitting Clinician Unavailable Mike Lund Admitting Clinician Unavailable ELISEO ARCE Admitting Clinician Unavailable DO PORSAH STREETER Admitting Clinician Unavailable Payers Payer Name Policy Type Policy Number Effective Date Expiration Date S gabino [facility] [id number] 2012 STAR PLUS OON 00:00:00 [facility] [id number] 2019 DUAL COMPLETE HMO 00:00:00 [facility] [id number] 2019 PLUS 00:00:00 [facility] [id number] 2019 [facility] 00:00:00 [employer] MEDICARE ADV [id number] 2019 2019 00:00:00 00:00:00 Problems Condition Condition Condition Status Onset Resolution Last Treating Co mments Source Name Details Category Date Date Treatment Clinician Date Dyspnea, Dyspnea, Disease Active Unive rs unspecifie unspecifie 02-11 it y of d type d type 00:00: [place] [address] Medical Branch Gastropare Gastropare Disease Active Overview : Methodi sis sis 4-[address] 00:[facility] note l might be different from the original. Added automatic ally from request for surgery [id number] Dysphagia Dysphagia Disease Active Overview: Methodi 4-[address] 00:00: [facility] 00 note l might be different from the original. 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 2020-10-15 Memoria PVI EPS PVI 330 17:07:00 l ABLATION ABLATION 00:00: Patel n W/ CARTO / W/ CARTO / 00 GA / T GA / T Active 08/19/2020 [facility] Food Food Disease Active 2019-05 [...] N/V [facility] hoxazole 1-25 Clear 00:00: [facility] trimetho DA Active SV [facility] prim - Clear 00:00: [facility] codeine DA Active SV N/V H[facility] -25 Clear 00:00: [facility] Metoclop Propensi Active [place] ramide ty [...] DRUG Active Hives 2017- Univers PRIM INGREDI 2- ity of 00:00: Medical Branch Fentanyl Drug Active Other - See Unknown Un matt Allergy comments 2 reaction ity o f 00:00: Medical Branch Trimetho Propensi Active Hives 2018-0 [...] s to drug METOCLOP DRUG Active Anxiety 2014- Univers RAMIDE [...] Date Stop Date Source Natural father Diabetes [facility] Natural father Other - see comments [facility] Natural father [facility] father [facility] mother [facility] Social History Social Habit Start Date Stop Date Quantity Comments Source Gender identity 2020-10-06 Identifies as Method ist 15:23:56 female gender Hospital (finding) History SDOH [facility] Alcohol Frequency Hospita l History SDOH [facility] Alcohol Std Drinks Hospit al History SDOH [facility] Alcohol Binge [facility] Sexual orientation [facility] History of Social 2022-08-26 2022-08-[address] function 00:00:00 00:00:00 Hospital Exposure to 2022-04-30 2022-05-10 Yes University of SARS-CoV-2 (event) 00:00:00 10:25:00 [facility] Tobacco use and 2022-02-11 2022-02-11 Former smokeless Uni versity of exposure 00:00:00 00:00:00 tobacco user [facility] Tobacco Comment 2022-02-11 2022-02-11 Smokes approx 1-2 Un iversity of 00:00:00 00:00:00 cigarettes per [facility] day when she Branch smokes Alcohol intake 2020-12-08 2020-12-08 Current drinker [facility] 00:00:00 00:00:00 of [facility] (finding) Cigarettes smoked 2020-09-05 2020-09-[address] current (pack per 00:00:00 00:00:00 [facility] day) - Reported Cigarette 2020-09-05 2020-09-05 [facility] pack-years 00:00:00 00:00:00 Hospital Alcohol Comment 2016-09-23 2016-09-23 rare [facility] 00:00:00 00:00:00 Hospital History of tobacco 2011-09-29 User of smokeless University of use 00:00:00 tobacco [facility] Sex Ass[birth year] At [birth year] [facility] 00:00:00 00:00:00 Smoking Status Start Date Stop Date Source Ex-smoker 2022-02-11 00:00:00 2022-02-11 00:00:00 [facility] [place] [facility] Medications Ordered Filled Start Stop Current Ordering Indication Dosage Frequency Signature Comments Components Source Medication Medication Date Date Medication? Clinician (SIG) Name Name ravindra Yes [id number] Take one Univers ne-tenofovi 6-12 po daily ity of r alafen 00:00: [place] (DESCOVY) 00 Medical tablet Branch raltegravir Yes [id number] 400mg Take 1 Univers (ISENTRESS) 6-12 tablet by ity of 400 mg 00:00: mouth in [place] tablet 00 the Medical morning Branch and 1 tablet in the evening. DESCOVY Yes [id number] Take one Univers tablet 5-08 po daily ity of 00:00: [place] 00 Medical Branch raltegravir Yes [id number] 400mg Take 1 Univers (ISENTRESS) 5-08 tablet by ity of 400 mg 00:00: mouth in [place] tablet 00 the Medical morning Branch and 1 tablet in the evening. DESCOVY 2022- No [id number] Take one Univers tablet 5-08 06-12 po daily ity of 00:00: 00:00 [place] 00 :00 Medical Branch raltegravir 2022- No [id number] 400mg Take 1 Univers (ISENTRESS) 5-08 06-12 tablet by it y of 400 mg 00:00: 00:00 mouth in [place] tablet 00 :00 the Medical morning Branch and 1 tablet in the evening. emtricsorenbi Yes [id number] Take one Univers ne-tenofovi 4-04 po daily ity of r alafen 00:00: [place] (DESCOVY) 00 Medical tablet Branch emtricitabi Yes [id number] Take one Univers ne-tenofovi 4-04 po daily ity of r alafen 00:00: [place] (DESCOVY) 00 Medical tablet Branch emtricitabi 2022- No [id number] Take one Univers ne-tenofovi 4-04 05-08 po daily ity of r alafen 00:00: 00:00 [place] (DESCOVY) 00 :00 Medical tablet Branch potassium 2021-05- No 10meq 10 mEq, IV Univers chloride in 07-11 Piggyback, i ty of water 10 20:00: 22:00 ONCE, 1 [place] mEq/100 mL 00 :00 dose, On Medic al RTU 10 mEq [facility] 05/10/22 at 1400, Administer over 60 Minutes, 100 mL magnesium 2021-05 No 800mg 800 mg, Uni vers oxide 07-11 Oral, ity of (MAG-OX 20:00: 19:37 ONCE, 1 [place] 400) tablet 00 :00 dose, On Medi porfirio 800 mg [facility] 05/10/22 at 1400, Routine KCL 2021-05 No 40meq 40 mEq, Univers (KLOR-CON 07-11 Oral, ity of M20) tablet 19:15: 19:37 [place]CE[place] 1 [place] 40 mEq 00 :00 dose, On Medical [facility] 05/10/22 at 1315, JOE hydralAZINE 2021-05 No 10mg 10 mg, Uni vers (APRESOLINE 07-11 Slow IV ity of ) injection 18:45: 18:42 [place] 10 mg 00 :00 ONCE, 1 Medical dose, On [facility] 05/10/22 at 1245, JOE NaCl 0.9% 2021-05 No 1000mL at 999 Uni vers (NS) bolus 07-11 mL/hr, ity of infusion 17:45: 20:00 1,000 mL, [place] 1,000 mL 00 :00 IV Medical Infusion, Branch ONCE, 1 dose, On [facility] 05/10/22 at 1145, JOE cefpodoxime 2021-05- No [id number] 100mg Take 1 Univers 100 mg 2-17 12-25 tablet by ity of tablet 00:00: 05:59 mouth in [place] 00 :00 the Medical morning Branch and 1 tablet in the evening. Do all this for 7 days. cefpodoxime 2021-05- No [id number] 100mg Take 1 Univers 100 mg 2-17 12-25 tablet by ity of tablet 00:00: 05:59 mouth in [place] 00 :00 the Medical morning Branch and 1 tablet in the evening. Do all this for 7 days. cefpodoxime 2021-05- No [id number] 100mg Take 1 Univers 100 mg 2-17 12-25 tablet by ity of tablet 00:00: 05:59 mouth in [place] 00 :00 the Medical morning Branch and 1 tablet in the evening. Do all this for 7 days. butalbital- 2021-05- No 1{tbl} 1 tablet, Univers acetaminoph 2-16 12-15 Oral, ity of en-caff 00:15: 23:19 ONCE, 1 [place] (ESGIC) 00 :00 dose, On Medical 50-325-40 [...] 00 :00 dose, On Medi porfirio mg [facility] 05/06/22 at 1515, JEO ondansetron 2021-05 Yes [id number] 1-2 U nivers 4 mg tablet 2-15 tablets ity o f 00:00: every 8 [place] 00 hours as Medical needed for Branch nausea benzonatate 2021-05 Yes [id number] 200mg Take 1 Univers 200 mg 2-15 capsule by ity of capsule 00:00: mouth 3 [place] 00 (three) Medical times Branch daily as needed for Cough. albuterol 2021-05 Yes [id number] 2{puff} Inhale 2 Univers 90 2-15 Puffs ity of mcg/actuati 00:00: every 4 [place] on inhaler 00 (four) Medical hours as Branch needed for Wheezing or Shortness of Breath. butalbital- 2021-05 Yes [id number] 1{tbl} Take 1 Univers acetaminoph 2-15 tablet by ity of en-caff 00:00: mouth [place] 50-325-40 00 every 4 Medical mg tablet (four) Branch hours as needed (headache) . ondansetron 2021-05 Yes [id number] 1-2 U nivers 4 mg tablet 2-15 tablets ity o f 00:00: every 8 [place] 00 hours as Medical needed for Branch nausea benzonatate 2021-05 Yes [id number] 200mg Take 1 Univers 200 mg 2-15 capsule by ity of capsule 00:00: mouth 3 (three) Medical times Branch daily as needed for Cough. albuterol 2021-05 Yes [id number] 2{puff} Inhale 2 Univers 90 2-15 Puffs ity of mcg/actuati 00:00: every 4 [place] on inhaler 00 (four) Medical hours as Branch needed for Wheezing or Shortness of Breath. butalbital- 2021-05 Yes [id number] 1{tbl} Take 1 Univers acetaminoph 2-15 tablet by ity of en-caff 00:00: mouth [place] 50-325-40 00 every 4 Medical mg tablet (four) Branch hours as needed (headache) . ondansetron 2021-05 Yes [id number] 1-2 U nivers 4 mg tablet 2-15 tablets ity o f 00:00: every 8 [place] 00 hours as Medical needed for Branch nausea benzonatate 2021-05 Yes [id number] 200mg Take 1 Univers 200 mg 2-15 capsule by ity of capsule 00:00: mouth 3 00 (three) Medical times Branch daily as needed for Cough. albuterol 2021-05 Yes [id number] 2{puff} Inhale 2 Univers 90 2-15 Puffs ity of mcg/actuati 00:00: every 4 [place] on inhaler 00 (four) Medical hours as Branch needed for Wheezing or Shortness of Breath. butalbital- 2021-05 Yes [id number] 1{tbl} Take 1 Univers acetaminoph 2-15 tablet by ity of en-caff 00:00: mouth [place] 50-325-40 00 every 4 Medical mg tablet (four) Branch hours as needed (headache) . ondansetron 2021-05 Yes [id number] 1-2 U nivers 4 mg tablet 2-15 tablets ity o f 00:00: every 8 [place] 00 hours as Medical needed for Branch nausea benzonatate 2021-05 Yes [id number] 200mg Take 1 Univers 200 mg 2-15 capsule by ity of capsule 00:00: mouth 3 [place] 00 (three) Medical times Branch daily as needed for Cough. albuterol 2021-05 Yes [id number] 2{puff} Inhale 2 Univers 90 2-15 Puffs ity of mcg/actuati 00:00: every 4 [place] on inhaler 00 (four) Medical hours as Branch needed for Wheezing or Shortness of Breath. butalbital- 2021-05 Yes [id number] 1{tbl} Take 1 Univers acetaminoph 2-15 tablet by ity of en-caff 00:00: mouth [place] 50-325-40 00 every 4 Medical mg tablet (four) Branch hours as needed (headache) . ondansetron 2021-05 Yes [id number] 1-2 U nivers 4 mg tablet 2-15 tablets ity o f 00:00: every 8 [place] 00 hours as Medical needed for Branch nausea benzonatate 2021-05 Yes [id number] 200mg Take 1 Univers 200 mg 2-15 capsule by ity of capsule 00:00: mouth 3 [place] 00 (three) Medical times Branch daily as needed for Cough. albuterol 2021-05 Yes [id number] 2{puff} Inhale 2 Univers 90 2-15 Puffs ity of mcg/actuati 00:00: every 4 [place] on inhaler 00 (four) Medical hours as Branch needed for Wheezing or Shortness of Breath. butalbital- 2021-05 Yes [id number] 1{tbl} Take 1 Univers acetaminoph 2-15 tablet by ity of en-caff 00:00: mouth [place] 50-325-40 00 every 4 Medical mg tablet (four) Branch hours as needed (headache) . ondansetron 2021-05 Yes [id number] 1-2 U nivers 4 mg tablet 2-15 tablets ity o f 00:00: every 8 [place] 00 hours as Medical needed for Branch nausea benzonatate 2021-05 Yes [id number] 200mg Take 1 Univers 200 mg 2-15 capsule by ity of capsule 00:00: mouth 3 [place] 00 (three) Medical times Branch daily as needed for Cough. albuterol 2021-05 Yes [id number] 2{puff} Inhale 2 Univers 90 2-15 Puffs ity of mcg/actuati 00:00: every 4 [place] on inhaler 00 (four) Medical hours as Branch needed for Wheezing or Shortness of Breath. butalbital- 2021-05 Yes [id number] 1{tbl} Take 1 Univers acetaminoph 2-15 tablet by ity of en-caff 00:00: mouth [place] 50-325-40 00 every 4 Medical mg tablet (four) Branch hours as needed (headache) . ondansetron 2021-05 Yes [id number] 1-2 U nivers 4 mg tablet 2-15 tablets ity o f 00:00: every 8 [place] 00 hours as Medical needed for Branch nausea benzonatate 2021-05 Yes [id number] 200mg Take 1 Univers 200 mg 2-15 capsule by ity of capsule 00:00: mouth 3 00 (three) Medical times Branch daily as needed for Cough. albuterol 2021-05 Yes [id number] 2{puff} Inhale 2 Univers 90 2-15 Puffs ity of mcg/actuati 00:00: every 4 [place] on inhaler 00 (four) Medical hours as Branch needed for Wheezing or Shortness of Breath. butalbital- 2021-05 Yes [id number] 1{tbl} Take 1 Univers acetaminoph 2-15 tablet by ity of en-caff 00:00: mouth [place] 50-325-40 00 every 4 Medical mg tablet (four) Branch hours as needed (headache) . ondansetron 2021-05 Yes [id number] 1-2 U nivers 4 mg tablet 2-15 tablets ity o f 00:00: every 8 [place] 00 hours as Medical needed for Branch nausea benzonatate 2021-05 Yes [id number] 200mg Take 1 Univers 200 mg 2-15 capsule by ity of capsule 00:00: mouth 3 [place] 00 (three) Medical times Branch daily as needed for Cough. albuterol 2021-05 Yes [id number] 2{puff} Inhale 2 Univers 90 2-15 Puffs ity of mcg/actuati 00:00: every 4 [place] on inhaler 00 (four) Medical hours as Branch needed for Wheezing or Shortness of Breath. butalbital- 2021-05 Yes [id number] 1{tbl} Take 1 Univers acetaminoph 2-15 tablet by ity of en-caff 00:00: mouth [place] 50-325-40 00 every 4 Medical mg tablet (four) Branch hours as needed (headache) . ondansetron 2021-05 Yes [id number] 1-2 U nivers 4 mg tablet 2-15 tablets ity o f 00:00: every 8 [place] 00 hours as Medical needed for Branch nausea benzonatate 2021-05 Yes [id number] 200mg Take 1 Univers 200 mg 2-15 capsule by ity of capsule 00:00: mouth 3 00 (three) Medical times Branch daily as needed for Cough. albuterol 2021-05 Yes [id number] 2{puff} Inhale 2 Univers 90 2-15 Puffs ity of mcg/actuati 00:00: every 4 [place] on inhaler 00 (four) Medical hours as Branch needed for Wheezing or Shortness of Breath. butalbital- 2021-05 Yes [id number] 1{tbl} Take 1 Univers acetaminoph 2-15 tablet by ity of en-caff 00:00: mouth [place] 50-325-40 00 every 4 Medical mg tablet (four) Branch hours as needed (headache) . ondansetron 2021-05 Yes [id number] 1-2 U nivers 4 mg tablet 2-15 tablets ity o f 00:00: every 8 [place] 00 hours as Medical needed for Branch nausea benzonatate 2021-05 Yes [id number] 200mg Take 1 Univers 200 mg 2-15 capsule by ity of capsule 00:00: mouth 3 [place] 00 (three) Medical times Branch daily as needed for Cough. albuterol 2021-05 Yes [id number] 2{puff} Inhale 2 Univers 90 2-15 Puffs ity of mcg/actuati 00:00: every 4 [place] on inhaler 00 (four) Medical hours as Branch needed for Wheezing or Shortness of Breath. butalbital- 2021-05 Yes [id number] 1{tbl} Take 1 Univers acetaminoph 2-15 tablet by ity of en-caff 00:00: mouth [place] 50-325-40 00 every 4 Medical mg tablet (four) Branch hours as needed (headache) . [facility] 2021-05- No [id number] 2{tbl} Take 2 Univers r-ritonavir 2-15 12-21 tablets by i ty of (PAXLOVID, 00:00: 05:59 mouth in [place] EUA,) 300 00 :00 the Medical mg (150 mg morning Branch x 2)-100 mg and 2 tablet tablets in the evening. Do all this for 5 days. [facility] 2021-05- No [id number] 2{tbl} Take 2 Univers r-ritonavir 2-15 12-21 tablets by i ty of (PAXLOVID, 00:00: 05:59 [place] EUA,) 300 00 :00 the Medical mg (150 mg morning Branch x 2)-100 mg and 2 tablet tablets in the evening. Do all this for 5 days. [facility] 2021-05- No [id number] 2{tbl} Take 2 Univers r-ritonavir 2-15 12-21 tablets by i ty of (PAXLOVID, 00:00: 05:59 mouth [place] EUA,) 300 00 :00 the Medical mg (150 mg morning Branch x 2)-100 mg and 2 tablet tablets in the evening. Do all this for 5 days. [facility] 2021-05- No [id number] 2{tbl} Take 2 Univers r-ritonavir 2-15 12-21 tablets by i ty of (PAXLOVID, 00:00: 05:59 mouth [place] EUA,) 300 00 :00 the Medical mg (150 mg morning Branch x 2)-100 mg and 2 tablet tablets in the evening. Do all this for 5 days. ondansetron 2021-05 4mg 4 mg, Univ ers (ZOFRAN-ODT -04-22 Oral, ity of ) 22:45: 21:53 ONCE, 1 [place] disintegrat 00 :00 dose, On Medi porfiroi ing tablet [place] Branch 4 mg 04/22/22 at 1645, Routine amoxicillin 2021-05 Yes [id number] 1{tbl} Take 1 Univers -clavulanat 2-01 [id number] tablet by i ty of e 875-125 00:00: mouth [place] mg per 00 every 12 Medical tablet (twelve) Branch hours. ondansetron 2021-05 Yes [id number] 4mg Take 1 Univers 4 mg 2- [id number] tablet by ity of disintegrat 00:00: mouth [place] ing tablet 00 every 8 Medica l (eight) Branch hours as needed for Nausea and Vomiting (N/V). amoxicillin 2021-05 Yes [id number] 1{tbl} Take 1 Univers -clavulanat 2- [id number] tablet by i ty of e 875-125 00:00: mouth [place] mg per 00 every 12 Medical tablet (twelve) Branch hours. ondansetron 2021-05 Yes [id number] 4mg Take 1 Univers 4 mg 2- [id number] tablet by ity of disintegrat 00:00: mouth [place] ing tablet 00 every 8 Medica l (eight) Branch hours as needed for Nausea and Vomiting (N/V). amoxicillin 2021-05 Yes [id number] 1{tbl} Take 1 Univers -clavulanat 2-01 [id number] tablet by i ty of e 875-125 00:00: mouth [place] mg per 00 every 12 Medical tablet (twelve) Branch hours. ondansetron 2021-05 Yes [id number] 4mg Take 1 Univers 4 mg 2-01 [id number] tablet by ity of disintegrat 00:00: mouth [place] ing tablet 00 every 8 Medica l (eight) Branch hours as needed for Nausea and Vomiting (N/V). amoxicillin 2021-05 Yes [id number] 1{tbl} Take 1 Univers -clavulanat 2-01 [id number] tablet by i ty of e 875-125 00:00: mouth [place] mg per 00 every 12 Medical tablet (twelve) Branch hours. ondansetron 2021-05 Yes [id number] 4mg Take 1 Univers 4 mg 2-01 [id number] tablet by ity of disintegrat 00:00: mouth [place] ing tablet 00 every 8 Medica l (eight) Branch hours as needed for Nausea and Vomiting (N/V). amoxicillin 2021-05 Yes [id number] 1{tbl} Take 1 Univers -clavulanat 2-01 [id number] tablet by i ty of e 875-125 00:00: mouth [place] mg per 00 every 12 Medical tablet (twelve) Branch hours. ondansetron 2021-05 Yes [id number] 4mg Take 1 Univers 4 mg 2-01 [id number] tablet by ity of disintegrat 00:00: mouth [place] ing tablet 00 every 8 Medica l (eight) Branch hours as needed for Nausea and Vomiting (N/V). amoxicillin 2021-05 Yes [id number] 1{tbl} Take 1 Univers -clavulanat 2-01 [id number] tablet by i ty of e 875-125 00:00: mouth [place] mg per 00 every 12 Medical tablet (twelve) Branch hours. ondansetron 2021-05 Yes [id number] 4mg Take 1 Univers 4 mg 2-01 [id number] tablet by ity of disintegrat 00:00: mouth [place] ing tablet 00 every 8 Medica l (eight) Branch hours as needed for Nausea and Vomiting (N/V). amoxicillin 2021-05 Yes [id number] 1{tbl} Take 1 Univers -clavulanat 2-01 [id number] tablet by i ty of e 875-125 00:00: mouth [place] mg per 00 every 12 Medical tablet (twelve) Branch hours. ondansetron 2021-05 Yes [id number] 4mg Take 1 Univers 4 mg 2-01 [id number] tablet by ity of disintegrat 00:00: mouth [place] ing tablet 00 every 8 Medica l (eight) Branch hours as needed for Nausea and Vomiting (N/V). amoxicillin 2021-05 Yes [id number] 1{tbl} Take 1 Univers -clavulanat 2-01 [id number] tablet by i ty of e 875-125 00:00: mouth [place] mg per 00 every 12 Medical tablet (twelve) Branch hours. ondansetron 2021-05 Yes [id number] 4mg Take 1 Univers 4 mg 2-01 [id number] tablet by ity of disintegrat 00:00: mouth [place] ing tablet 00 every 8 Medica l (eight) Branch hours as needed for Nausea and Vomiting (N/V). amoxicillin 2021-05 Yes [id number] 1{tbl} Take 1 Univers -clavulanat 2-01 [id number] tablet by i ty of e 875-125 00:00: mouth [place] mg per 00 every 12 Medical tablet (twelve) Branch hours. ondansetron 2021-05 Yes [id number] 4mg Take 1 Univers 4 mg 2-01 [id number] tablet by ity of disintegrat 00:00: mouth [place] ing tablet 00 every 8 Medica l (eight) Branch hours as needed for Nausea and Vomiting (N/V). amoxicillin 2021-05 Yes [id number] 1{tbl} Take 1 Univers -clavulanat 2-01 [id number] tablet by i ty of e 875-125 00:00: mouth [place] mg per 00 every 12 Medical tablet (twelve) Branch hours. ondansetron 2021-05 Yes [id number] 4mg Take 1 Univers 4 mg 2- [id number] tablet by ity of disintegrat 00:00: mouth [place] ing tablet 00 every 8 Medica l (eight) Branch hours as needed for Nausea and Vomiting (N/V). amoxicillin 2021-05 Yes [id number] 1{tbl} Take 1 Univers -clavulanat 2-01 [id number] tablet by i ty of e 875-125 00:00: mouth [place] mg per 00 every 12 Medical tablet (twelve) Branch hours. ondansetron 2021-05 Yes [id number] 4mg Take 1 Univers 4 mg 2-01 [id number] tablet by ity of disintegrat 00:00: mouth [place] ing tablet 00 every 8 Medica l (eight) Branch hours as needed for Nausea and Vomiting (N/V). amoxicillin 2021-05 Yes [id number] 1{tbl} Take 1 Univers -clavulanat 2-01 [id number] tablet by i ty of e 875-125 00:00: mouth [place] mg per 00 every 12 Medical tablet (twelve) Branch hours. ondansetron 2021-05 Yes [id number] 4mg Take 1 Univers 4 mg 2-01 [id number] tablet by ity of disintegrat 00:00: mouth [place] ing tablet 00 every 8 Medica l (eight) Branch hours as needed for Nausea and Vomiting (N/V). zoster 2021-05- No [id number] .5mL 0.5 mL by Univers vaccine, 0-14 -15 9104 Intramuscu ity of recombinant 00:00: 04:59 lar route [place] (SHINGRIX, 00 :00 once now Medic al PF,) for 1 Branch injection dose. And repeat in 2-6 months zoster 2021-05- No [id number] .5mL 0.5 mL by Univers vaccine, 0-14 -15 9104 Intramuscu ity of recombinant 00:00: 04:59 lar route [place] (SHINGRIX, 00 :00 once now Medic al PF,) for 1 Branch injection dose. And repeat in 2-6 months zoster 2021-05- No [id number] .5mL 0.5 mL by Univers vaccine, 0-05 [...] o f 1 mg tablet 19:28: at [place] [address] bedtime. Medical Branch traZODone 0 Yes 50mg Take 50 mg Un matt 100 mg 9-27 by mouth ity of tablet 19:28: at [place] [address] bedtime. Medical Branch hydralAZINE 2021-0 Yes 25mg [...] o f 1 mg tablet 19:28: at [place] [address] bedtime. Medical Branch traZODone 2021-0 Yes 50mg Take 50 mg Un matt 100 mg 9-27 by mouth ity of tablet 19:28: at [place] [address] bedtime. Medical Branch hydralAZINE 2021-0 Yes 25mg [...] o f 1 mg tablet 19:28: at [place] [address] bedtime. Medical Branch traZODone 2-0 Yes 50mg Take 50 mg Un matt 100 mg 9-27 by mouth ity of tablet 19:28: at [place] [address] bedtime. Medical Branch hydralAZINE 2021-0 Yes 25mg [...] o f 1 mg tablet 19:28: at [place] [address] bedtime. Medical Branch traZODone 2021-0 Yes 50mg Take 50 mg Un matt 100 mg 9-27 by mouth ity of tablet 19:28: at [place] [address] bedtime. Medical Branch hydralAZINE 2021-0 Yes 25mg [...] o f 1 mg tablet 19:28: at [place] [address] bedtime. Medical Branch traZODone 2021-0 Yes 50mg Take 50 mg Un matt 100 mg 9-27 by mouth ity of tablet 19:28: at [place] [address] bedtime. Medical Branch hydralAZINE 2021-0 Yes 25mg [...] o f 1 mg tablet 19:28: at [place] [address] bedtime. Medical Branch traZODone 2021-0 Yes 50mg Take 50 mg Un matt 100 mg 9-27 by mouth ity of tablet 19:28: at [place] [address] bedtime. Medical Branch hydralAZINE 2021-0 Yes 25mg [...] o f 1 mg tablet 19:28: at [place] [address] bedtime. Medical Branch traZODone 2021-0 Yes 50mg Take 50 mg Un matt 100 mg 9-27 by mouth ity of tablet 19:28: at [place] [address] bedtime. Medical Branch hydralAZINE 2021-0 Yes 25mg [...] o f 1 mg tablet 19:28: at [place] [address] bedtime. Medical Branch traZODone 2021-0 Yes 50mg Take 50 mg Un matt 100 mg 9-27 by mouth ity of tablet 19:28: at [place] [address] bedtime. Medical Branch hydralAZINE 2021-0 Yes 25mg Take 25 mg [facility] (APRESOLINE 9-27 by mouth ity of ) 25 mg 19:28: daily. [place] tablet 04 Medical Branch lisinopril 2021-0 Yes 40mg Take 40 mg U nivers (PRINIVIL,Z 9-27 by mouth 2 it y of ESTRIL) 40 19:28: (two) [place] mg tablet 04 times Medical daily. Branch metoprolol 2-0 Yes 100mg Take 100 Un amtt tartrate 9-27 mg by ity of (LOPRESSOR) 19:28: mouth 2 [place] 100 mg 04 (two) Medical tablet times [place] daily. amLODIPine 2021-0 Yes 10mg Take 10 mg U nivers (NORVASC) 9-27 by mouth ity of 10 mg 19:28: daily. [place] tablet 04 Medical Branch clonazePAM 2021-0 Yes 1mg Take 1 mg Un matt (KLONOPIN) 9-27 by mouth ity o f 1 mg tablet 19:28: at [place] [address] bedtime. Medical Branch traZODone 2021-0 Yes 50mg Take 50 mg Un matt 100 mg 9-27 by mouth ity of tablet 19:28: at [place] [address] bedtime. Medical Branch hydralAZINE 2021-0 Yes 25mg [...] 100 mg 04 (two) Medical tablet times [place] daily. amLODIPine 2021-0 Yes 10mg Take 10 mg U nivers (NORVASC) 9-27 by mouth ity of 10 mg 19:28: daily. [place] tablet 04 Medical Branch clonazePAM 2021-0 Yes 1mg Take 1 mg Un matt (KLONOPIN) 9-27 by mouth ity o f 1 mg tablet 19:28: at [place] [address] bedtime. Medical Branch traZODone 2021-0 Yes 50mg Take 50 mg Un matt 100 mg 9-27 by mouth ity of tablet 19:28: at [place] [address] bedtime. Medical Branch hydralAZINE 2021-0 Yes 25mg [...] o f 1 mg tablet 19:28: at [place] [address] bedtime. Medical Branch traZODone 2021-0 Yes 50mg Take 50 mg Un matt 100 mg 9-27 by mouth ity of tablet 19:28: at [place] [address] bedtime. Medical Branch hydralAZINE 2021-0 Yes 25mg [...] 100 mg 04 (two) Medical tablet times [place] daily. amLODIPine 2021-0 Yes 10mg Take 10 mg U nivers (NORVASC) 9-27 by mouth ity of 10 mg 19:28: daily. [place] tablet 04 Medical Branch clonazePAM 2021-0 Yes 1mg Take 1 mg Un matt (KLONOPIN) 9-27 by mouth ity o f 1 mg tablet 19:28: at [place] [address] bedtime. Medical Branch traZODone 2021-0 Yes 50mg Take 50 mg Un matt 100 mg 9-27 by mouth ity of tablet 19:28: at [place] [address] bedtime. Medical Branch hydralAZINE 2021-0 Yes 25mg [...] o f 1 mg tablet 19:28: at [place] [address] bedtime. Medical Branch traZODone 2021-0 Yes 50mg Take 50 mg Un matt 100 mg 9- by mouth ity of tablet 19:28: at [place] [address] bedtime. Medical Branch hydralAZINE 2021-0 Yes 25mg [...] o f 1 mg tablet 19:28: at [place] [address] bedtime. Medical Branch traZODone 2-0 Yes 50mg Take 50 mg Un matt 100 mg 9-27 by mouth ity of tablet 19:28: at [place] [address] bedtime. Medical Branch hydralAZINE 2-0 Yes 25mg [...] o f 1 mg tablet 19:28: at [place] [address] bedtime. Medical Branch traZODone 2-0 Yes 50mg Take 50 mg Un matt 100 mg 9-27 by mouth ity of tablet 19:28: at [place] [address] bedtime. Medical Branch hydralAZINE 2021-0 Yes 25mg [...] o f 1 mg tablet 19:28: at [place] [address] bedtime. Medical Branch traZODone 2022-0 Yes 50mg Take 50 mg Un matt 100 mg 9-27 by mouth ity of tablet 19:28: at [place] [address] bedtime. Medical Branch hydralAZINE 2021-0 Yes 25mg [...] o f 1 mg tablet 19:28: at [place] [address] bedtime. Medical Branch traZODone 2021-0 Yes 50mg Take 50 mg Un matt 100 mg 9-27 by mouth ity of tablet 19:28: at [place] [address] bedtime. Medical Branch hydralAZINE 2021-0 Yes 25mg [...] o f 1 mg tablet 19:28: at [place] [address] bedtime. Medical Branch traZODone 2021-0 Yes 50mg Take 50 mg Un matt 100 mg 9-27 by mouth ity of tablet 19:28: at [place] [address] bedtime. Medical Branch hydralAZINE 2021-0 Yes 25mg [...] o f 1 mg tablet 19:28: at [place] [address] bedtime. Medical Branch traZODone 2021-0 Yes 50mg Take 50 mg Un matt 100 mg 9-27 by mouth ity of tablet 19:28: at [place] [address] bedtime. Medical Branch hydralAZINE 2021-0 Yes 25mg [...] o f 1 mg tablet 19:28: at [place] [address] bedtime. Medical Branch traZODone Yes 50mg Take 50 mg Un matt 100 mg 02-16 by mouth ity of tablet 19:28: at [place] [address] bedtime. [facility] Branch cefpodoxime 2021- No [id number] 200mg Take 1 Univers 200 mg 02-16 tablet by ity of tablet 00:00: 04:59 mouth in [place] 00 :00 the Medical morning Branch and 1 tablet in the evening. Do all this for 3 days. cefpodoxime 2021- No [id number] 200mg Take 1 Univers 200 mg 02-16 tablet by ity of tablet 00:00: 04:59 mouth in [place] 00 :00 the [facility] morning [place] and 1 tablet in the evening. Do [...] ed, Routine butalbital- Yes 1{tbl} 1 tablet, [place] [facility] acetaminoph 24 Oral, ity of en-caff 18:46: Q6HPRN, [place] (ESGIC) 06 Starting Medical 50-325-40 on Unm [...] Yes 4mg 4 mg, Univer s (ZANAFLEX) 9- Oral, Q8H, ity of tablet 4 mg [...] at 0900, Until Discontinu ed, Routine SERTraline 2022-0 Yes 200mg 200 mg, Uni vers (ZOLOFT) [...] First dose [place] tablet 100 00 on [facility] Medical mg 02/11/22 at Branch 1300, Until Discontinu ed, Routine lisinopriL 0 Yes 40mg 40 mg, Unive rs (PRINIVIL,Z 02-11 Oral, BID, it y of ESTRIL) 18:00: [place] tablet 40 00 on [facility] Medical mg 02/11/22 at Branch 1300, Until Discontinu ed, Routine emtricitabi 0 Yes 1{tbl} 1 tablet, [facility] Oral, ity of r alafen 18:00: DAILY, [place] (DESCOVY) 00 First dose Medi porfirio tablet 1 on [facility] tablet 02/11/22 at 1300, Until Discontinu ed, Routine ipratropium 0 Yes .5mg 0.5 mg, Uni vers (ATROVENT) 02-11 Inhalation ity of 0.02 % 17:57: , QIDPRN, [place] nebulizer 10 Starting Medica l solution on [facility] 0.5 mg 02/11/22 at 1257, Until Discontinu ed, Routine, Wheezing, Shortness of Breath amLODIPine 0 Yes 10mg 10 mg, Unive rs (NORVASC) 02-11 Oral, ity of tablet 10 17:30: DAILY, [place] mg 00 First dose Medical (after Branch last modificati on) on [facility] 02/11/22 at 1230, Until Discontinu ed, Routine hydrALAZINE 2021-0 2022- No 25mg 25 mg, Uni vers (APRESOLINE 02-11-23 Oral, ity of ) tablet 25 17:30: 12:54 DAILY, [place] mg 00 :55 First dose Medical (after Branch last modificati on) on [facility] 02/11/22 at 1230, Until Discontinu ed, Routine HYDROcodone 0 202- No 1{tbl} 1 tablet, Univers -acetaminop 02-11 Oral, ity of hen (NORCO 14:11: 17:37 Q6HPRN, [place] 5) 5-325 mg 03 :24 Starting Medi porfirio tablet 1 on [facility] tablet 02/11/22 at 0911, Until Tue02/12/22 at 1237, Routine, Pain (scale 7-10) melatonin 0 Yes 3mg 3 mg, Univers (MELATIN) 02-11 Oral, ity of tablet 3 mg 14:08: QHSPRN, [place] 17 Starting Medical on [facility] Branch 02/11/22 at 0908, Until Discontinu ed, Routine, Insomnia acetaminoph 0 2022- No 1{tbl} 1 tablet, Univers en-codeine 02-11 Oral, ity of (TYLENOL 14:06: 17:37 Q6HPN, [place] #3) 300-30 19 :24 Starting Medic al mg tablet 1 on [facility] tablet 02/11/22 at 0906, Until Tue02/12/22 at 1237, Routine, Pain (scale 4-6) sennosides- Yes 1{tbl} 1 tablet, Univers docusate 02-11 Oral, ity of sodium 14:06: QDAILYPRN [place] (SENOKOT-S) 09 Starting Medi porfirio 8.6-50 mg on [facility] per tablet 02/11/22 at 1 tablet 0906, Until Discontinu ed, Routine, Constipati on ondansetron 0 Yes 4mg 4 mg, Slow Univers (ZOFRAN 02-11 IV Push, ity of (PF)) 14:05: Q6HPRNCrab [place], [place] injection 4 59 Starting Medi porfirio mg on [facility] Branch 02/11/22 at 0905, Until Discontinu ed, Routine, Nausea and Vomiting (N/V) acetaminoph 0 Yes 650mg 650 mg, Un matt en 02-11 Oral, ity of (TYLENOL) 14:04: Q6HPRNCrab [place], [place] tablet 650 37 Starting Medic al [...] mg 09:10: daily. [place] tablet 54 Medical Branch amLODIPine Yes 10mg Take 10 mg U nivers (NORVASC) 02-11 by mouth ity of 10 mg 09:10: daily. [place] [facility] 54 [facility] Branch piperacilli 2021- No 3.375g [...] of therapy: 72 hours iopamidol 2021- No [id number] 60mL 60 mL, Univers (ISOVUE 02-11 Intravenou [...] Branch 02/11/22 at 0015, JOE emtricitabi Yes [id number] Take one Univers ne-tenofovi 9-12 po daily ity of r alafen 00:00: [place] (DESCOVY) Medical tablet Branch emtricitabi Yes [id number] Take one Univers ne-tenofovi 9-12 po daily ity of r alafen 00:00: [place] (DESCOVY) 00 Medical tablet Branch emtricitabi Yes [id number] Take one Univers ne-tenofovi 9-12 po daily ity of r alafen 00:00: [place] (DESCOVY) 00 Medical tablet Branch emtricitabi Yes [id number] Take one Univers ne-tenofovi 9-12 po daily ity of r alafen 00:00: [place] (DESCOVY) 00 Medical tablet Branch emtricitabi Yes [id number] Take one Univers ne-tenofovi 9-12 po daily ity of r alafen 00:00: [place] (DESCOVY) 00 Medical tablet Branch emtricitabi Yes [id number] Take one Univers ne-tenofovi 9-12 po daily ity of r alafen 00:00: [place] (DESCOVY) 00 Medical tablet Branch emtricita Yes [id number] Take one Univers ne-tenofovi 9-12 po daily ity of r alafen 00:00: [place] (DESCOVY) 00 Medical tablet Branch emtricita Yes [id number] Take one Univers ne-tenofovi 9-12 po daily ity of r alafen 00:00: [place] (DESCOVY) 00 Medical tablet Branch emtricita Yes [id number] Take one Univers ne-tenofovi 9-12 po daily ity of r alafen 00:00: [place] (DESCOVY) 00 Medical tablet Branch emtricita Yes [id number] Take one Univers ne-tenofovi 9-12 po daily ity of r alafen 00:00: [place] (DESCOVY) 00 Medical tablet Branch emtricita Yes [id number] Take one Univers ne-tenofovi 9-12 po daily ity of r alafen 00:00: [place] (DESCOVY) 00 Medical tablet Branch emtricita Yes [id number] Take one Univers ne-tenofovi 9-12 po daily ity of r alafen 00:00: [place] (DESCOVY) 00 Medical tablet Branch emtricita Yes [id number] Take one Univers ne-tenofovi 9-12 po daily ity of r alafen 00:00: [place] (DESCOVY) 00 Medical tablet Branch emtricita Yes [id number] Take one Univers ne-tenofovi 9-12 po daily ity of r alafen 00:00: [place] (DESCOVY) 00 Medical tablet Branch emtricita Yes [id number] Take one Univers ne-tenofovi 9-12 po daily ity of r alafen 00:00: [place] (DESCOVY) 00 Medical tablet Branch emtricita Yes [id number] Take one Univers ne-tenofovi 9-12 po daily ity of r alafen 00:00: [place] (DESCOVY) 00 Medical tablet Branch emtricita Yes [id number] Take one Univers ne-tenofovi 9-12 po daily ity of r alafen 00:00: [place] (DESCOVY) 00 Medical tablet Branch emtricitabi 2021-2022- No [id number] Take one Univers ne-tenofovi 02-01-04 po daily ity of r alafen 00:00: 00:00 [place] (DESCOVY) 00 :00 Medical tablet Branch emtricitabi 2021-0 3- No [id number] Take one Univers ne-arianofovi 02-01- po daily ity of r alafen 00:00: 00:00 [place] (DESCOVY) 00 :00 Medical tablet Branch naproxen 2021-0 Yes [id number] 500mg Take 1 U nivers (NAPROSYN) 7-24 tablet by ity of 500 mg 00:00: mouth in [place] tablet 00 the Medical morning Branch and 1 tablet in the evening. Take with meals. methocarbam 2021-0 Yes [id number] 500mg Take 1 Univers oL 500 mg 7-24 tablet by ity o f tablet 00:00: mouth 4 [place] ([facility]) Medical times Branch daily. naproxen 2021-0 Yes [id number] 500mg Take 1 U nivers (NAPROSYN) 7-24 tablet by ity of 500 mg 00:00: mouth in [place] tablet 00 the Medical morning Branch and 1 tablet in the evening. Take with meals. methocarbam 2021-0 Yes [id number] 500mg Take 1 Univers oL 500 mg 7-24 tablet by ity o f tablet 00:00: mouth 4 [place] ([facility]) Medical times Branch daily. naproxen 2-0 Yes [id number] 500mg Take 1 U nivers (NAPROSYN) 7-24 tablet by ity of 500 mg 00:00: mouth in [place] tablet 00 the Medical morning Branch and 1 tablet in the evening. Take with meals. methocarbam 2022-0 Yes [id number] 500mg Take 1 Univers oL 500 mg 7-24 tablet by ity o f tablet 00:00: mouth 4 [place] ([facility]) Medical times Branch daily. naproxen 2-0 2022- No [id number] 500mg Take 1 Univers (NAPROSYN) 7-24 10-14 tablet by ity of 500 mg 00:00: 00:00 mouth in [place] tablet 00 :00 the Medical morning Branch and 1 tablet in the evening. Take with meals. methocarbam 2021- No [id number] 500mg Take 1 Univers oL 500 mg 12-13 tablet by ity of tablet 00:00: 00:00 mouth 4 [place] 00 :00 (four) Medical times Branch daily. naproxen 2021- No [id number] 500mg Take 1 Univers (NAPROSYN) 12-13 tablet by ity of 500 mg 00:00: 00:00 mouth in [place] tablet 00 :00 the Medical morning Branch and 1 tablet in the evening. Take with meals. methocarbam 2021- No [id number] 500mg Take 1 Univers oL 500 mg 12-13 tablet by ity of tablet 00:00: 00:00 mouth 4 [place] 00 :00 (four) Medical times [place] daily. esomeprazol 2021- No 40mg Take 40 mg Univers e (NEXIUM) 11-20 by mouth 2 it y of 40 mg 09:12: 00:00 (two) [place] capsule 03 :00 times Medical daily. Branch amiodarone 2021- No 100mg Take 100 U nivers 100 mg 11-20 mg by ity of tablet 09:11: 00:00 mouth [place] 57 :00 daily. Medical Branch apixaban 2021- No 5mg Take 5 mg Uni vers (ELIQUIS) 5 11-20 by mouth 2 i ty of mg tablet 09:11: 00:00 (two) [place] 35 :00 times Medical daily. Branch traZODONE 2021- No Take by [facility] ers (DESYREL) 11-20 mouth at ity o f 10 mg/mL 09:10: 00:00 bedtime. [place] oral 28 :00 Medical suspension Branch hydralAZINE Yes 25mg Take 25 mg Univers (APRESOLINE 11-20 by mouth ity of ) 25 mg 08:47: daily. [place] tablet 47 Medical Branch cephALEXin 2021- No [id number] 500mg Take 1 Univers (KEFLEX) 10-24 capsule by ity of 500 mg 00:00: 00:00 mouth 4 [place] capsule 00 :00 (four) Medical times Branch daily. acetaminoph 2021- No [id number] 1{tbl} Take 1 U nivers en-codeine 611-20 tablet by ity of (TYLENOL-CO 00:00: 00:00 mouth [place] DE[place] #3) 00 :00 every 4 Medical 300-30 mg (four) Branch tablet hours as needed for Pain (scale 7-10). Indication s: acute pain buPROPion 2021-0 Yes [id number] 150mg Take 1 U nivers XL 4-12 tablet by ity of (WELLBUTRIN 00:00: mouth [place] XL) 150 mg 00 daily. Medical 24 hr Branch tablet busPIRone 2021-0 Yes [id number] 30mg Take 1 Un matt 30 mg 4-12 tablet by ity of tablet 00:00: mouth 2 [place] 00 (two) Medical times Branch daily. SERTraline 0 Yes [id number] 200mg Take 2 Univers 100 mg 4-12 tablets by ity of tablet 00:00: mouth [place] 00 daily. Medical Branch buPROPion 0 Yes [id number] 150mg Take 1 U nivers XL 4-12 tablet by ity of (WELLBUTRIN 00:00: mouth [place] XL) 150 mg 00 daily. Medical 24 hr Branch tablet busPIRone 2021-0 Yes [id number] 30mg Take 1 Un matt 30 mg 4-12 tablet by ity of tablet 00:00: mouth 2 [place] 00 (two) Medical times Branch daily. SERTraline 2021-0 Yes [id number] 200mg Take 2 Univers 100 mg 4-12 tablets by ity of tablet 00:00: mouth [place] 00 daily. Medical Branch buPROPion 2021-0 Yes [id number] 150mg Take 1 U nivers XL 4-12 tablet by ity of (WELLBUTRIN 00:00: mouth [place] XL) 150 mg 00 daily. Medical 24 hr Branch tablet busPIRone 2021-0 Yes [id number] 30mg Take 1 Un matt 30 mg 4-12 tablet by ity of tablet 00:00: mouth 2 [place] 00 (two) Medical times Branch daily. SERTraline 2021-0 Yes [id number] 200mg Take 2 Univers 100 mg 4-12 tablets by ity of tablet 00:00: mouth [place] 00 daily. Medical Branch buPROPion 2021-0 Yes [id number] 150mg Take 1 U nivers XL 4-12 tablet by ity of (WELLBUTRIN 00:00: mouth [place] XL) 150 mg 00 daily. Medical 24 hr Branch tablet busPIRone 2021-0 Yes [id number] 30mg Take 1 Un matt 30 mg 4-12 tablet by ity of tablet 00:00: mouth 2 [place] 00 (two) Medical times Branch daily. SERTraline 2021-0 Yes [id number] 200mg Take 2 Univers 100 mg 4-12 tablets by ity of tablet 00:00: mouth [place] 00 daily. Medical Branch buPROPion 2021-0 Yes [id number] 150mg Take 1 U nivers XL 4-12 tablet by ity of (WELLBUTRIN 00:00: mouth [place] XL) 150 mg 00 daily. Medical 24 hr Branch tablet busPIRone 2021-0 Yes [id number] 30mg Take 1 Un matt 30 mg 4-12 tablet by ity of tablet 00:00: mouth 2 [place] 00 (two) Medical times Branch daily. SERTraline 2021-0 Yes [id number] 200mg Take 2 Univers 100 mg 4-12 tablets by ity of tablet 00:00: mouth [place] 00 daily. Medical Branch buPROPion 2021-0 Yes [id number] 150mg Take 1 U nivers XL 4-12 tablet by ity of (WELLBUTRIN 00:00: mouth [place] XL) 150 mg 00 daily. Medical 24 hr Branch tablet busPIRone 2021-0 Yes [id number] 30mg Take 1 Un matt 30 mg 4-12 tablet by ity of tablet 00:00: mouth 2 [place] 00 (two) Medical times Branch daily. SERTraline 2021-0 Yes [id number] 200mg Take 2 Univers 100 mg 4-12 tablets by ity of tablet 00:00: mouth [place] 00 daily. Medical Branch buPROPion 2021-0 Yes [id number] 150mg Take 1 U nivers XL 4-12 tablet by ity of (WELLBUTRIN 00:00: mouth [place] XL) 150 mg 00 daily. Medical 24 hr Branch tablet busPIRone 2021-0 Yes [id number] 30mg Take 1 Un matt 30 mg 4-12 tablet by ity of tablet 00:00: mouth 2 [place] 00 (two) Medical times Branch daily. SERTraline 2021-0 Yes [id number] 200mg Take 2 Univers 100 mg 4-12 tablets by ity of tablet 00:00: mouth [place] 00 daily. Medical Branch buPROPion 2021-0 Yes [id number] 150mg Take 1 U nivers XL 4-12 tablet by ity of (WELLBUTRIN 00:00: mouth [place] XL) 150 mg 00 daily. Medical 24 hr Branch tablet busPIRone 2021-0 Yes [id number] 30mg Take 1 Un matt 30 mg 4-12 tablet by ity of tablet 00:00: mouth 2 [place] 00 (two) Medical times Branch daily. SERTraline 2021-0 Yes [id number] 200mg Take 2 Univers 100 mg 4-12 tablets by ity of tablet 00:00: mouth [place] 00 daily. Medical Branch buPROPion 2021-0 Yes [id number] 150mg Take 1 U nivers XL 4-12 tablet by ity of (WELLBUTRIN 00:00: mouth [place] XL) 150 mg 00 daily. Medical 24 hr Branch tablet busPIRone 2021-0 Yes [id number] 30mg Take 1 Un matt 30 mg 4-12 tablet by ity of tablet 00:00: mouth 2 [place] 00 (two) Medical times Branch daily. SERTraline 2021-0 Yes [id number] 200mg Take 2 Univers 100 mg 4-12 tablets by ity of tablet 00:00: mouth [place] 00 daily. Medical Branch buPROPion 2021-0 Yes [id number] 150mg Take 1 U nivers XL 4-12 tablet by ity of (WELLBUTRIN 00:00: mouth [place] XL) 150 mg 00 daily. Medical 24 hr Branch tablet busPIRone 2021-0 Yes [id number] 30mg Take 1 Un matt 30 mg 4-12 tablet by ity of tablet 00:00: mouth 2 [place] 00 (two) Medical times Branch daily. SERTraline 2021-0 Yes [id number] 200mg Take 2 Univers 100 mg 4-12 tablets by ity of tablet 00:00: mouth [place] 00 daily. Medical Branch buPROPion 2021-0 Yes [id number] 150mg Take 1 U nivers XL 4-12 tablet by ity of (WELLBUTRIN 00:00: mouth [place] XL) 150 mg 00 daily. Medical 24 hr Branch tablet busPIRone 2021-0 Yes [id number] 30mg Take 1 Un matt 30 mg 4-12 tablet by ity of tablet 00:00: mouth 2 [place] 00 (two) Medical times Branch daily. SERTraline 2021-0 Yes [id number] 200mg Take 2 Univers 100 mg 4-12 tablets by ity of tablet 00:00: mouth [place] 00 daily. Medical Branch buPROPion 2021-0 Yes [id number] 150mg Take 1 U nivers XL 4-12 tablet by ity of (WELLBUTRIN 00:00: mouth [place] XL) 150 mg 00 daily. Medical 24 hr Branch tablet busPIRone 2021-0 Yes [id number] 30mg Take 1 Un matt 30 mg 4-12 tablet by ity of tablet 00:00: mouth 2 [place] 00 (two) Medical times Branch daily. SERTraline 2021-0 Yes [id number] 200mg Take 2 Univers 100 mg 4-12 tablets by ity of tablet 00:00: mouth [place] 00 daily. Medical Branch buPROPion 2021-0 Yes [id number] 150mg Take 1 U nivers XL 4-12 tablet by ity of (WELLBUTRIN 00:00: mouth [place] XL) 150 mg 00 daily. Medical 24 hr Branch tablet busPIRone 2021-0 Yes [id number] 30mg Take 1 Un matt 30 mg 4-12 tablet by ity of tablet 00:00: mouth 2 [place] 00 (two) Medical times Branch daily. SERTraline 2021-0 Yes [id number] 200mg Take 2 Univers 100 mg 4-12 tablets by ity of tablet 00:00: mouth [place] 00 daily. Medical Branch buPROPion 2021-0 Yes [id number] 150mg Take 1 U nivers XL 4-12 tablet by ity of (WELLBUTRIN 00:00: mouth [place] XL) 150 mg 00 daily. Medical 24 hr Branch tablet busPIRone 2021-0 Yes [id number] 30mg Take 1 Un matt 30 mg 4-12 tablet by ity of tablet 00:00: mouth 2 [place] 00 (two) Medical times Branch daily. SERTraline 2021-0 Yes [id number] 200mg Take 2 Univers 100 mg 4-12 tablets by ity of tablet 00:00: mouth [place] 00 daily. Medical Branch buPROPion 2021-0 Yes [id number] 150mg Take 1 U nivers XL 4-12 tablet by ity of (WELLBUTRIN 00:00: mouth [place] XL) 150 mg 00 daily. Medical 24 hr Branch tablet busPIRone 2021-0 Yes [id number] 30mg Take 1 Un matt 30 mg 4-12 tablet by ity of tablet 00:00: mouth 2 00 (two) Medical times Branch daily. SERTraline 2021-0 Yes [id number] 200mg Take 2 Univers 100 mg 4-12 tablets by ity of tablet 00:00: mouth [place] 00 daily. Medical Branch buPROPion 2021-0 Yes [id number] 150mg Take 1 U nivers XL 4-12 tablet by ity of (WELLBUTRIN 00:00: mouth [place] XL) 150 mg 00 daily. Medical 24 hr Branch tablet busPIRone 0 Yes [id number] 30mg Take 1 Un matt 30 mg 4-12 tablet by ity of tablet 00:00: mouth 2 (two) Medical times Branch daily. SERTraline 0 Yes [id number] 200mg Take 2 Univers 100 mg 4-12 tablets by ity of tablet 00:00: mouth [place] 00 daily. Medical Branch buPROPion 2021-0 Yes [id number] 150mg Take 1 U nivers XL 4-12 tablet by ity of (WELLBUTRIN 00:00: mouth [place] XL) 150 mg 00 daily. Medical 24 hr Branch tablet busPIRone 2021-0 Yes [id number] 30mg Take 1 Un matt 30 mg 4-12 tablet by ity of tablet 00:00: mouth 2 (two) Medical times Branch daily. SERTraline 2021-0 Yes [id number] 200mg Take 2 Univers 100 mg 4-12 tablets by ity of tablet 00:00: mouth [place] 00 daily. Medical Branch buPROPion 2021-0 Yes [id number] 150mg Take 1 U nivers XL 4-12 tablet by ity of (WELLBUTRIN 00:00: mouth [place] XL) 150 mg 00 daily. Medical 24 hr Branch tablet busPIRone 2021-0 Yes [id number] 30mg Take 1 Un matt 30 mg 4-12 tablet by ity of tablet 00:00: mouth 2 (two) Medical times Branch daily. SERTraline 2021-0 Yes [id number] 200mg Take 2 Univers 100 mg 4-12 tablets by ity of tablet 00:00: mouth [place] 00 daily. Medical Branch buPROPion 2021-0 Yes [id number] 150mg Take 1 U nivers XL 4-12 tablet by ity of (WELLBUTRIN 00:00: mouth [place] XL) 150 mg 00 daily. Medical 24 hr Branch tablet busPIRone 2021-0 Yes [id number] 30mg Take 1 Un matt 30 mg 4-12 tablet by ity of tablet 00:00: mouth 2 [place] 00 (two) Medical times Branch daily. SERTraline 2021-0 Yes [id number] 200mg Take 2 Univers 100 mg 4-12 tablets by ity of tablet 00:00: mouth [place] 00 daily. Medical Branch buPROPion 0 Yes [id number] 150mg Take 1 U nivers XL 4-12 tablet by ity of (WELLBUTRIN 00:00: mouth [place] XL) 150 mg 00 daily. Medical 24 hr Branch tablet busPIRone 2021-0 Yes [id number] 30mg Take 1 Un matt 30 mg 4-12 tablet by ity of tablet 00:00: mouth 2 [place] 00 (two) Medical times Branch daily. SERTraline 2021-0 Yes [id number] 200mg Take 2 Univers 100 mg 4-12 tablets by ity of tablet 00:00: mouth [place] 00 daily. Medical Branch buPROPion 0 Yes [id number] 150mg Take 1 U nivers XL 4-12 tablet by ity of (WELLBUTRIN 00:00: mouth [place] XL) 150 mg 00 daily. Medical 24 hr Branch tablet busPIRone 2021-0 Yes [id number] 30mg Take 1 Un matt 30 mg 4-12 tablet by ity of tablet 00:00: mouth 2 [place] 00 (two) Medical times Branch daily. SERTraline 2021-0 Yes [id number] 200mg Take 2 [facility] 100 mg 4-12 tablets by [facility] of tablet 00:00: mouth [place] 00 daily. Medical Branch buPROPion 0 Yes [id number] 150mg Take 1 U n[facility] XL 4-12 tablet by ity of (WELLBUTRIN 00:00: mouth [place] XL) 150 mg 00 daily. Medical 24 hr Branch tablet busPIRone 2021-0 Yes [id number] 30mg Take 1 Un matt 30 mg 4-12 tablet by ity of tablet 00:00: mouth 2 [place] 00 (two) Medical times Branch daily. SERTraline 2021-0 Yes [id number] 200mg Take 2 [facility] 100 mg 4-12 tablets by ity of tablet 00:00: mouth [place] 00 daily. Medical Branch raltegravir 2021-0 Yes [id number] 400mg Take 1 [facility] (ISENTRESS) 3-28 tablet by ity of 400 mg 00:00: mouth 2 [place] tablet 00 (two) Medical times Branch daily. raltegravir 2021-0 Yes [id number] 400mg Take 1 [facility] (ISENTRESS) 3-28 tablet by ity of 400 mg 00:00: mouth 2 [place] tablet 00 (two) Medical times Branch daily. raltegravir 2021-0 Yes [id number] 400mg Take 1 [facility] (ISENTRESS) 3-28 tablet by ity of 400 mg 00:00: mouth 2 [place] tablet 00 (two) Medical times Branch daily. raltegravir 2021-0 Yes [id number] 400mg Take 1 [facility] (ISENTRESS) 3-28 tablet by ity of 400 mg 00:00: mouth 2 [place] tablet 00 (two) Medical times Branch daily. raltegravir 2021-0 Yes [id number] 400mg Take 1 [facility] (ISENTRESS) 3-28 tablet by ity of 400 mg 00:00: mouth 2 [place] tablet 00 (two) Medical times Branch daily. raltegravir 2021-0 Yes [id number] 400mg Take 1 [facility] (ISENTRESS) 3-28 tablet by ity of 400 mg 00:00: mouth 2 [place] tablet 00 (two) Medical times Branch daily. raltegravir 2021-0 Yes [id number] 400mg Take 1 [facility] (ISENTRESS) 3-28 tablet by ity of 400 mg 00:00: mouth 2 [place] tablet 00 (two) Medical times Branch daily. raltegravir 2021-0 Yes [id number] 400mg Take 1 [facility] (ISENTRESS) 3-28 tablet by ity of 400 mg 00:00: mouth 2 [place] tablet 00 (two) Medical times Branch daily. raltegravir 2021-0 Yes [id number] 400mg Take 1 [facility] (ISENTRESS) 3-28 tablet by ity of 400 mg 00:00: mouth 2 [place] tablet 00 (two) Medical times Branch daily. raltegravir 2022-0 Yes [id number] 400mg Take 1 [facility] (ISENTRESS) 3-28 tablet by ity of 400 mg 00:00: mouth 2 [place] tablet 00 (two) Medical times Branch daily. raltegravir 2022-0 Yes [id number] 400mg Take 1 [facility] (ISENTRESS) 3-28 tablet by ity of 400 mg 00:00: mouth 2 [place] tablet 00 (two) Medical times Branch daily. raltegravir 2022-0 Yes [id number] 400mg Take 1 [facility] (ISENTRESS) 3-28 tablet by ity of 400 mg 00:00: mouth 2 [place] tablet 00 (two) Medical times Branch daily. raltegravir 2022-0 Yes [id number] 400mg Take 1 [facility] (ISENTRESS) 3-28 tablet by ity of 400 mg 00:00: mouth 2 [place] tablet 00 (two) Medical times Branch daily. raltegravir 2022-0 Yes [id number] 400mg Take 1 [facility] (ISENTRESS) 3-28 tablet by ity of 400 mg 00:00: mouth 2 [place] tablet 00 (two) Medical times Branch daily. raltegravir 2022-0 Yes [id number] 400mg Take 1 [facility] (ISENTRESS) 3-28 tablet by ity of 400 mg 00:00: mouth 2 [place] tablet 00 (two) Medical times Branch daily. raltegravir 2022-0 Yes [id number] 400mg Take 1 [facility] (ISENTRESS) 3-28 tablet by ity of 400 mg 00:00: mouth 2 [place] tablet 00 (two) Medical times Branch daily. raltegravir 2022-0 Yes [id number] 400mg Take 1 [facility] (ISENTRESS) 3-28 tablet by ity of 400 mg 00:00: mouth 2 [place] tablet 00 (two) Medical times Branch daily. raltegravir 2022-0 Yes [id number] 400mg Take 1 [facility] (ISENTRESS) 3-28 tablet by ity of 400 mg 00:00: mouth 2 [place] tablet 00 (two) Medical times Branch daily. raltegravir 2022-0 Yes [id number] 400mg Take 1 [facility] (ISENTRESS) 3-28 tablet by ity of 400 mg 00:00: mouth 2 [place] tablet 00 (two) Medical times Branch daily. raltegravir Yes [id number] 400mg Take 1 [facility] (ISENTRESS) 3-28 tablet by ity of 400 mg 00:00: mouth 2 [place] tablet 00 (two) Medical times Branch daily. raltegravir 2022- No [id number] 400mg Take 1 [facility] (ISENTRESS) 3-28 05-08 tablet by it y of 400 mg 00:00: 00:00 mouth 2 [place] tablet 00 :00 (two) Medical times Branch daily. LORazepam 1 2021- No [id number] 1mg Take 1 [facility] mg tablet 3- [...] times a tablet day. emtricitabi 2021- No [id number] Take one [facility] ne-tenofovi 1-20 09-12 po daily ity of r alafen 00:00: 00:00 [place] (DESCOVY) 00 :00 Medical tablet Branch metoprolol 0 Yes [id number] Take 1 [facility] tartrate 7-26 tablet [facility] (Lopressor) 00:00: (100 mg 100 MG 00 total) by tablet mouth 2 (two) times a day AND 0.5 tablets (50 mg total) every night. metoprolol 0 Yes [id number] Take 1 [facility] tartrate 7-26 [facility] (Lopressor) 00:00: (100 mg 100 MG 00 total) by tablet mouth 2 (two) times a day AND 0.5 tablets (50 mg total) every night. raltegravir 2021-0 Yes 400mg Q.5D Take 400 [facility] (Isentress) 7-23 mg by Health 400 MG 08:03: mouth 2 tablet 05 (two) times a day. esomeprazol 0 Yes 20mg QD Take 20 [...] area in groin) hydrALAZINE 0 Yes 50mg Q.16409002 Take 50 mg [facility] (APRESOLINE 7-19 [id number] [address] mouth [facility] ) 50 MG [...] area in groin) hydrALAZINE 0 Yes 50mg Q.[id number] Take 50 mg [facility] (APRESOLINE 7-19 [id number] mouth [facility] ) 50 MG [...] (affected area in groin) hydrALAZINE Yes 50mg Q.98138574 Take 50 mg [facility] (APRESOLINE 7-19 [id number] mouth 3 [facility] ) 50 MG [...] area in groin) hydrALAZINE 0 Yes 50mg Q.21519566 Take 50 mg [facility] (APRESOLINE 7-19 [id number] [address] mouth 3 [address] ) 50 MG [...] area in groin) hydrALAZINE 0 Yes 50mg Q.73774590 Take 50 mg [facility] (APRESOLINE 7-19 [id number] [address] mouth [facility] ) 50 MG [...] (affected area in groin) hydrALAZINE Yes 50mg Q.56856969 Take 50 mg [facility] (APRESOLINE 7-19 [id number] [address] mouth 3 [address] ) 50 MG [...] area in groin) hydrALAZINE 0 Yes 50mg Q.[id number] Take 50 mg [facility] (APRESOLINE 7-19 [id number] [address] mouth 3 [facility] ) 50 MG [...] area in groin) hydrALAZINE 2021-0 Yes 50mg Q.[id number] Take 50 mg [facility] (APRESOLINE 7-[id number] mouth [address] ) 50 MG [...] (affected area in groin) hydrALAZINE Yes 50mg Q.18951367 Take 50 mg [facility] (APRESOLINE 7-19 [id number] [address] mouth 3 [facility] ) 50 MG [...] area in groin) hydrALAZINE 0 Yes 50mg Q.40812428 Take 50 mg [facility] (APRESOLINE 7-19 [id number] by mouth 3 st ) 50 MG [...] area in groin) hydrALAZINE 0 Yes 50mg Q.60707703 Take 50 mg [facility] (APRESOLINE 7-19 [id number] mouth 3 [address] ) 50 MG [...] (affected area in groin) hydrALAZINE Yes 50mg Q.[id number] Take 50 mg [facility] (APRESOLINE 7-19 [id number] [address] mouth 3 [facility] ) 50 MG [...] (affected area in groin) hydrALAZINE Yes 50mg Q.[id number] Take 50 mg [facility] (APRESOLINE 7-19 [id number] [address] mouth 3 [address] ) 50 MG [...] area in groin) hydrALAZINE 0 Yes 50mg Q.55979721 Take 50 mg [facility] (APRESOLINE 7-19 [id number] [address] mouth 3 [facility] ) 50 MG [...] area in groin) hydrALAZINE 0 Yes 50mg Q.27933041 Take 50 mg [facility] (APRESOLINE 7-19 [id number] [address] mouth [address] ) 50 MG [...] (affected area in groin) hydrALAZINE Yes 50mg Q.06389587 Take 50 mg [facility] (APRESOLINE 7-[id number] mouth [address] ) 50 MG [...] (affected area in groin) hydrALAZINE Yes 50mg Q.85552157 Take 50 mg [facility] (APRESOLINE 7-19 [id number] [address] mouth [facility] ) 50 MG [...] area in groin) hydrALAZINE 0 Yes 50mg Q.66949889 Take 50 mg [facility] (APRESOLINE 7-19 [id number] mouth [address] ) 50 MG [...] (affected area in groin) hydrALAZINE Yes 50mg Q.10271289 Take 50 mg [facility] (APRESOLINE 7-[id number] mouth [address] ) 50 MG [...] Q.5D Take 40 mg M [facility] (PRINIVIL,Z -[address] ESTRIL) 40 10:51: [...] area in groin) hydrALAZINE 0 Yes 50mg Q.59823250 Take 50 mg [facility] (APRESOLINE - [id number] by mouth 3 st ) 50 MG [...] QD Take 10 mg M [facility] (NORVASC) - by mouth st 10 mg 10:51: daily. [...] area in groin) hydrALAZINE 0 Yes 50mg Q.10718622 Take 50 mg [facility] (APRESOLINE 7-[id number] mouth [address] ) 50 MG [...] area in groin) hydrALAZINE 0 Yes 50mg Q.08422551 Take 50 mg [facility] (APRESOLINE 7- [id number] by mouth 3 st ) 50 MG [...] (affected area in groin) hydrALAZINE Yes 50mg Q.94418308 Take 50 mg [facility] (APRESOLINE 7-19 [id number] mouth [address] ) 50 MG [...] area in groin) hydrALAZINE 2020-0 Yes 50mg Q.75435810 Take 50 mg [facility] (APRESOLINE -19 [id number] [address] mouth [facility] ) 50 MG [...] area in groin) hydrALAZINE 0 Yes 50mg Q.92097136 Take 50 mg [facility] (APRESOLINE 7-19 [id number] mouth [address] ) 50 MG [...] (affected area in groin) hydrALAZINE Yes 50mg Q.37458896 Take 50 mg [facility] (APRESOLINE -19 [id number] [address] mouth [facility] [address] ) 50 MG [...] area in groin) hydrALAZINE 0 Yes 50mg Q.71771042 Take 50 mg [facility] (APRESOLINE -19 [id number] mouth [address] ) 50 MG [...] area in groin) hydrALAZINE 0 Yes 50mg Q.94953532 Take 50 mg [facility] (APRESOLINE 7-[id number] mouth [address] ) 50 MG [...] (affected area in groin) hydrALAZINE Yes 50mg Q.22175649 Take 50 mg [facility] (APRESOLINE 7-19 [id number] mouth [address] ) 50 MG [...] area in groin) hydrALAZINE 0 Yes 50mg Q.69801851 Take 50 mg [facility] (APRESOLINE 7-[id number] mouth [address] ) 50 MG [...] area in groin) hydrALAZINE 0 Yes 50mg Q.44409328 Take 50 mg [facility] (APRESOLINE 7-19 [id number] mouth 3 [address] ) 50 MG [...] (affected area in groin) hydrALAZINE Yes 50mg Q.07248343 Take 50 mg [facility] (APRESOLINE 7-[id number] mouth [address] ) 50 MG [...] (affected area in groin) hydrALAZINE Yes 50mg Q.03604419 Take 50 mg [facility] (APRESOLINE 7-[id number] mouth [address] ) 50 MG [...] area in groin) hydrALAZINE 0 Yes 50mg Q.92013515 Take 50 mg [facility] (APRESOLINE 7-[id number] mouth [address] ) 50 MG [...] area in groin) hydrALAZINE 0 Yes 50mg Q.89293062 Take 50 mg [facility] (APRESOLINE 7-[id number] mouth [address] ) 50 MG [...] (affected area in groin) hydrALAZINE Yes 50mg Q.44530449 Take 50 mg [facility] (APRESOLINE 7-[id number] mouth [address] ) 50 MG [...] (affected area in groin) hydrALAZINE Yes 50mg Q.29429021 Take 50 mg [facility] (APRESOLINE 7-[id number] mouth [address] ) 50 MG [...] area in groin) hydrALAZINE 0 Yes 50mg Q.54311489 Take 50 mg [facility] (APRESOLINE 7-[id number] mouth [address] ) 50 MG [...] (affected area in groin) hydrALAZINE Yes 50mg Q.[id number] Take 50 mg [facility] (APRESOLINE 7-[id number] mouth [address] ) 50 MG [...] area in groin) hydrALAZINE 0 Yes 50mg Q.02257903 Take 50 mg [facility] (APRESOLINE 7-[id number] mouth [address] ) 50 MG [...] area in groin) hydrALAZINE 0 Yes 50mg Q.65129203 Take 50 mg [facility] (APRESOLINE 7-19 [id number] mouth 3 [address] ) 50 MG [...] (affected area in groin) hydrALAZINE Yes 50mg Q.63032007 Take 50 mg [facility] (APRESOLINE 7-[id number] mouth [address] ) 50 MG [...] (affected area in groin) hydrALAZINE Yes 50mg Q.29729612 Take 50 mg [facility] (APRESOLINE 7-[id number] mouth [address] ) 50 MG [...] (affected area in groin) hydrALAZINE Yes 50mg Q.02570212 Take 50 mg [facility] (APRESOLINE 7-[id number] mouth 3 [address] ) 50 MG [...] (affected area in groin) hydrALAZINE Yes 50mg Q.92401349 Take 50 mg [facility] (APRESOLINE 7-[id number] mouth [address] ) 50 MG [...] (affected area in groin) hydrALAZINE Yes 50mg Q.12204398 Take 50 mg [facility] (APRESOLINE 7-[id number] mouth [address] ) 50 MG [...] area in groin) hydrALAZINE 0 Yes 50mg Q.86019638 Take 50 mg [facility] (APRESOLINE 7-[id number] mouth [address] ) 50 MG [...] area in groin) hydrALAZINE 0 Yes 50mg Q.24996552 Take 50 mg [facility] (APRESOLINE 7-[id number] mouth [address] ) 50 MG [...] (affected area in groin) hydrALAZINE Yes 50mg Q.11808162 Take 50 mg [facility] (APRESOLINE 7-[id number] mouth [address] ) 50 MG [...] area in groin) hydrALAZINE 0 Yes 50mg Q.88313187 Take 50 mg [facility] (APRESOLINE 7-[id number] mouth [address] ) 50 MG [...] area in groin) hydrALAZINE 2020-0 Yes 50mg Q.[id number] Take 50 mg [facility] (APRESOLINE 7-[id number] mouth [address] ) 50 MG [...] area in groin) hydrALAZINE 0 Yes 50mg Q.[id number] Take 50 mg [facility] (APRESOLINE 7-[id number] mouth [address] ) 50 MG [...] (affected area in groin) hydrALAZINE Yes 50mg Q.[id number] Take 50 mg [facility] (APRESOLINE - [id number] by mouth 3 st ) 50 MG [...] [facility] daily. l nystatin-tr 2021-0 Yes [id number] Apply to [facility] iamcinolone 7-06 area(s) 3 ity of cream 00:00: (three) [place] 00 times Medical daily. Branch nystatin-tr 2021-0 Yes [id number] Apply to [facility] iamcinolone 7-06 area(s) 3 ity of cream 00:00: (three) [place] 00 times Medical daily. Branch nystatin-tr 2021-0 Yes [id number] Apply to [facility] iamcinolone 7-06 area(s) 3 ity of cream 00:00: (three) [place] 00 times Medical daily. Branch nystatin-tr 2021-0 Yes [id number] Apply to [facility] iamcinolone 7-06 area(s) 3 ity of cream 00:00: (three) [place] 00 times Medical daily. Branch nystatin-tr 2021-0 Yes [id number] Apply to [facility] iamcinolone 7-06 area(s) 3 ity of cream 00:00: (three) [place] 00 times Medical daily. Branch nystatin-tr 2021-0 Yes [id number] Apply to [facility] iamcinolone 7-06 area(s) 3 ity of cream 00:00: (three) [place] 00 times Medical daily. Branch nystatin-tr 2021-0 Yes [id number] Apply to [facility] iamcinolone 7-06 area(s) 3 ity of cream 00:00: (three) [place] 00 times Medical daily. Branch nystatin-tr 2021-0 Yes [id number] Apply to [facility] iamcinolone 7-06 area(s) 3 ity of cream 00:00: (three) [place] 00 times Medical daily. Branch nystatin-tr 2021-0 Yes [id number] Apply to [facility] iamcinolone 7-06 area(s) 3 ity of cream 00:00: (three) [place] 00 times Medical daily. Branch nystatin-tr 2021-0 Yes [id number] Apply to [facility] iamcinolone 7-06 area(s) 3 ity of cream 00:00: (three) [place] 00 times Medical daily. Branch nystatin-tr 2021-0 Yes [id number] Apply to [facility] iamcinolone 7-06 area(s) 3 ity of cream 00:00: (three) [place] 00 times Medical daily. Branch nystatin-tr 2021-0 Yes [id number] Apply to [facility] iamcinolone 7-06 area(s) 3 ity of cream 00:00: (three) [place] 00 times Medical daily. Branch nystatin-tr 2021-0 Yes [id number] Apply to [facility] iamcinolone 7-06 area(s) 3 ity of cream 00:00: (three) [place] 00 times Medical daily. Branch nystatin-tr 2021-0 Yes [id number] Apply to [facility] iamcinolone 7-06 area(s) 3 ity of cream 00:00: (three) [place] 00 times Medical daily. Branch nystatin-tr 2021-0 Yes [id number] Apply to [facility] iamcinolone 7-06 area(s) 3 ity of cream 00:00: (three) [place] 00 times Medical daily. Branch nystatin-tr 2021-0 Yes [id number] Apply to [facility] iamcinolone 7-06 area(s) 3 ity of cream 00:00: (three) [place] 00 times Medical daily. Branch nystatin-tr 2021-0 Yes [id number] Apply to [facility] iamcinolone 7-06 area(s) 3 ity of cream 00:00: (three) [place] 00 times Medical daily. Branch nystatin-tr 2021-0 Yes [id number] Apply to [facility] iamcinolone 7-06 area(s) 3 ity of cream 00:00: (three) [place] 00 times Medical daily. Branch nystatin-tr 2021-0 Yes [id number] Apply to [facility] iamcinolone 7-06 area(s) 3 ity of cream 00:00: (three) [place] 00 times Medical daily. Branch nystatin-tr 2021-0 Yes [id number] Apply to [facility] iamcinolone 7-06 area(s) 3 ity of cream 00:00: (three) [place] 00 times Medical daily. Branch nystatin-tr 2021-0 Yes [id number] Apply to [facility] iamcinolone 7-06 area(s) 3 ity of cream 00:00: (three) [place] 00 times Medical daily. Branch nystatin-tr Yes [id number] [facility] ity of cream 00:00: (three) [place] 00 times Medical daily. Branch budesonide- 2020-0 2021- No 1{puff} QD Inhale 1 [facility] formoteroL 6-25 06-[address] (SYMBICORT) 14:37: 00:00 morning. [facility] 160-4.5 02 :00 l mcg/actuati on inhaler hydrALAZINE 0 Yes [id number] 50mg Q.15665861 Take 1 [facility] (Apresoline 6-11 [id number] tablet (50 Health ) 50 MG 00:00: 3D mg total) tablet 00 by mouth 3 (three) times a day. hydrALAZINE Yes [id number] 50mg Q.25458653 Take 1 [facility] (Apresoline 6-11 [id number] tablet (50 Health ) 50 MG 00:00: [...] % 00:00: ointment 00 nystatin 2020- No [id number] Q.25D Take 5 mL [facility] (MYCOSTATIN 10-06 [...] e 4-10 Tablet l 14:00: should not [place] 00 be chewed or crushed. (Same as: [...] ia 4-10 (Same as: l 14:00: Zoloft) [place] 00 Sertraline No Notes: Memor ia 4-10 (Same as: l 14:00: Zoloft) [place] 00 pantoprazol No Notes: [facility] lisa e 4-10 Tablet l 14:00: should not [place] 00 be chewed or crushed. (Same as: Protonix) Amiodarone No Notes: [facility] ia 4-10 (Same as: l 14:00: Cordarone) [place] Amlodipine No Notes: [facility] ia 4-10 (Same [...] e 4-10 Tablet l 14:00: should not [place] 00 be chewed or crushed. (Same as: Protonix) Amiodarone No Notes: [facility] ia 4-10 (Same as: l 14:00: Cordarone) [place] 00 Amlodipine No Notes: [facility] 4-10 [...] e 4-10 Tablet l 14:00: should not [place] 00 be chewed or crushed. (Same as: Protonix) Amiodarone No Notes: [facility] ia 4-10 (Same as: l 14:00: Cordarone) [place] 00 Amlodipine No Notes: [facility] ia 4-10 (Same as: l 14:00: Norvasc) [place] emtricitabi No Notes: Caesar lisa ne 200 MG / 4-10 (Same as: l tenofovir 14:00: Descovy) Herm ariel alafenamide 00 Non-formul 25 MG Oral nancy Tablet [Descovy] Sertraline No Notes: [facility] ia 4-10 (Same as: l 14:00: Zoloft) [place] 00 pantoprazol No Notes: [place] lisa e 4-10 Tablet l 14:00: should not [place] 00 be chewed or crushed. (Same as: Protonix) Amiodarone No Notes: [facility] ia 4-10 (Same as: l 14:00: Cordarone) [place] 00 Amlodipine No Notes: [facility] ia 4-10 (Same as: l 14:00: Norvasc) [place] 00 emtricitabi No Notes: [place] lisa ne 200 MG / 4-10 (Same as: l tenofovir 14:00: Descovy) Herm ariel alafenamide 00 Non-formul 25 MG Oral nancy Tablet [Descovy] Sertraline No Notes: [facility] ia 4-10 (Same as: l 14:00: Zoloft) [place] 00 pantoprazol No Notes: [facility] lisa e 4-10 Tablet l 14:00: should not [place] 00 be chewed or crushed. (Same as: Protonix) Amiodarone No Notes: [facility] ia 4-10 (Same as: l 14:00: Cordarone) [place] Sucralfate No Notes: May M emoria 4-10 interfere l 02:00: w/enteral [place] 00 feeds - Take 1 hr before or 2 hr after antacids, dairy pdt, meals & minerals - On empty stomach. For patients unable to swallow tablet, dissolve in 10mL - 30mL of water or juice and stir before giving. (Same As: Carafate) Saline No Notes: [facility] Flush 0.9% 4-10 (Same as: l 02:00: BD [place] Posiflush) Eliquis No Notes: [facility] 4-10 Same [...] 0.9% 4-10 (Same as: l 02:00: BD [place] 00 Posiflush) Eliquis No Notes: [facility] 4-10 [...] 0.9% 4-10 (Same as: l 02:00: BD [place] 00 Posiflush) Eliquis No Notes: [facility] 4-10 Same as: l 02:00: Eliquis [place] Hydralazine No Notes: Caesar lisa Hydrochlori 4-10 (Same as: l de 50 MG 02:00: Apresoline Her mitchell Oral Tablet 00 ) May interfere w/enteral feedings Take With Food Sucralfate No Notes: May M emoria 4-10 interfere l 02:00: w/enteral [place] 00 feeds - Take 1 hr before or 2 hr after antacids, dairy pdt, meals & minerals - On empty stomach. For patients unable to swallow tablet, dissolve in 10mL - 30mL of water or juice and stir before giving. (Same As: Carafate) Saline No Notes: [facility] Flush 0.9% 4-10 (Same as: l 02:00: BD [place] Posiflush) Eliquis No Notes: [facility] 4-10 Same as: l 02:00: Eliquis [place] 00 Hydralazine No Notes: Caesar lisa Hydrochlori [...] 0.9% 4-10 (Same as: l 02:00: BD [place] 00 Posiflush) Eliquis No Notes: [facility] 4-10 Same as: l 02:00: Eliquis [place] Hydralazine No Notes: Caesar lisa Hydrochlori 4-10 (Same as: l de 50 MG 02:00: Apresoline Her mit[place] Oral Tablet 00 ) May interfere w/enteral feedings Take With Food Sucralfate No Notes: May M emoria 4-10 interfere l 02:00: w/enteral [place] 00 feeds - Take 1 hr before or 2 hr after antacids, dairy pdt, meals & minerals - On empty stomach. For patients unable to swallow tablet, dissolve in 10mL - 30mL of water or juice and stir before giving. (Same As: Carafate) Saline No Notes: [facility] Flush 0.9% 4-10 (Same as: l 02:00: BD [place] Posiflush) Eliquis No Notes: [facility] 4-10 Same [...] not exceed l #3 00:12: 4gm/day of [place] acetaminop hen. (Same as: Tylenol with Codeine # 3) acetaminoph No Notes: Do M emoria en-codeine 4-10 not exceed l #3 00:12: 4gm/day of [place] acetaminop hen. (Same as: Tylenol with Codeine # 3) acetaminoph No Notes: Do M emoria en-codeine 4-10 not exceed l #3 00:12: 4gm/day of [place] acetaminop hen. (Same as: Tylenol with Codeine [...] oria 4-09 tab, l 22:00: Route: PO, [place] 00 Drug form: TAB, BID, Dosing Weight [...] tartrate 4-09 tab, l 22:00: Route: PO, [place] Drug form: TAB, BID, Dosing Weight 97.273, [...] oria 4-09 tab, l 22:00: Route: PO, [place] Drug form: TAB, BID, Dosing Weight 97.273, [...] oria 4-09 tab, l 22:00: Route: PO, [place] 00 Drug form: TAB, BID, Dosing Weight 97.273, kg, Start date: 08/29/20 17:00:00 CDT, Duration: 30 day, Stop date: 09/28/20 9:00:00 CDT metoprolol 1-0 No 100 mg, 1 Me moria tartrate 4-09 tab, l 22:00: Route: PO, [place] Drug form: TAB, BID, Dosing Weight 97.273, [...] oria -09 tab, l 22:00: Route: PO, [place] 00 Drug form: TAB, BID, Dosing Weight [...] tartrate 4-09 tab, l 22:00: Route: PO, [place] 00 Drug form: TAB, BID, Dosing Weight [...] Notes: Memoria 4-09 (Same l 17:07: as:MORPhin [place] 00 e Sulfate) Morphine No Notes: [facility] 4-09 (Same l 17:07: as:MORPhin [place] 00 e Sulfate) Morphine No Notes: [facility] 4-09 (Same l 17:07: as:MORPhin [place] 00 e Sulfate) Morphine No Notes: [facility]oria 4- (Same l 17:07: as:MORPhin [place] 00 e Sulfate) Morphine No Notes: [facility]oria 4- (Same l 17:07: as:MORPhin [place] 00 e Sulfate) Morphine No Notes: [facility] 4- (Same l 17:07: as:MORPhin [place] 00 e Sulfate) Morphine No Notes: [facility] 4- (Same l 17:07: as:MORPhin [place] 00 e Sulfate) buPROPion 2020-0 No 150 [...] tab, PO, l oral 15:27: Daily, # [place] enteric 00 30 tab, 0 coated Refill(s), [...] tab, PO, l oral 15:27: Daily, # [place] enteric 00 30 tab, 0 coated Refill(s), [...] tab, PO, l oral 15:27: Daily, # [place] enteric 00 30 tab, 0 coated Refill(s), tablet Pharmacy: [facility] 149, 162.56, cm, 08/29/20 5:30:00 CDT, Height, 97.273, kg, 08/29/20 5:30:00 CDT, Weight pantoprazol 1-0 Yes 40 mg = 1 M emoria e 40 mg 4-09 tab, PO, l oral 15:27: Daily, # [place] enteric 00 30 tab, 0 coated Refill(s), tablet Pharmacy: [facility] 149, 162.56, cm, 08/29/20 5:30:00 CDT, Height, 97.273, kg, 08/29/20 5:30:00 CDT, Weight pantoprazol 1-0 Yes 40 mg = 1 M emoria e 40 mg 4-09 tab, PO, l oral 15:27: Daily, # [place] enteric 00 30 tab, 0 coated Refill(s), [...] tab, PO, l oral 15:26: Daily, # [place] enteric 00 30 tab, 0 coated Refill(s) [...] tab, PO, l oral 15:26: Daily, # [place] enteric 00 30 tab, 0 coated Refill(s) [...] 0.9% 08-29 (Same as: l 15:25: BD [place] 00 Posiflush) Lorazepam No Notes: Memori a 4-09 (Same as: l 15:25: Ativan) Saline No Notes: [facility] Flush 0.9% 4-09 (Same as: l 15:25: BD [place] 00 Posiflush) Lorazepam No Notes: Memori a 4-09 (Same as: l 15:25: Ativan) Saline No Notes: [facility] Flush 0.9% 4-09 (Same as: l 15:25: BD [place] 00 Posiflush) Saline No Notes: [facility] Flush 0.9% 4-09 (Same as: l 15:25: BD [place] 00 Posiflush) Lorazepam No Notes: Memori a 4-09 (Same as: l 15:25: Ativan) Lorazepam No Notes: Memori a 4-09 (Same as: l 15:25: Ativan) Saline No Notes: [facility]oria Flush 0.9% 4-09 (Same as: l 15:25: BD [place] 00 Posiflush) Lorazepam No Notes: Memori a [...] Drug form: l mg + 15:00: INJ, [place] Dosing Weight 97.3, kg, Start date: 08/29/20 [...] CDT, Stop date: 08/29/20 11:00:00 CDT heparin 2020- No Route: IV, Caesar lisa (ANES) 08-29 [...] 08-29 Drug form: l 14:29: INJ, ONCE, [place] 00 Stop date: 08/29/20 9:29:00 CDT propofol [...] 08-29 Drug form: l 14:18: INJ, ONCE, [place] 00 Stop date: 08/29/20 9:18:00 CDT heparin 202-0 No Route: IV, Caesar lisa (ANES) 08-29 Drug form: l 14:18: INJ, ONCE, [place] 00 Stop date: 08/29/20 9:18:00 CDT Labetalol 1-0 No 10 mg, Memori a 08-29 Route: l 14:01: IVP, [place] 00 Q5Min, Dosing Weight 97.273, kg, PRN [...] oria ne 08-29 Route: l 14:01: IVP, [place] 00 Q5Min, Dosing Weight 97.273, kg, PRN Pain Score 7-10, Start date: 08/29/20 9:01:00 CDT, Duration: 4 doses or times, Stop date: Limited # of times Flumazenil 2020-0 No 0.2 mg, Caesar lisa 08-29 Route: l 14:01: IVP, PRN, Edmond 00 Dosing Weight 97.273, kg, PRN Benzodiaze [...] 08-29 Route: PO, l 14:01: Drug form: Edmond 00 TAB, ONCE, Dosing Weight 97.273, kg, [...] oria ne 08-29 Route: l 14:01: IVP, Edmond 00 Q5Min, Dosing Weight 97.273, kg, PRN Pain Score 7-10, Start date: 08/29/20 9:01:00 CDT, Duration: 4 doses or times, Stop date: Limited # of times Flumazenil 2020-0 No 0.2 mg, Caesar lisa 08-29 Route: l 14:01: IVP, PRN, Ed[place] 00 Dosing Weight 97.273, kg, PRN Benzodiaze pine Reversal, Initial dose, Start date: 08/29/20 9:01:00 CDT, Duration: 30 day, Stop date: 09/28/20 9:00:00 CDT Naloxone 1-0 No 0.4 mg, Memori a 08-29 Route: l 14:01: IVP, Edmond 00 Q2MIN, Dosing Weight 97.273, kg, PRN [...] Memori a 08-29 Route: l 14:01: IVP, [place] 00 Q5Min, Dosing Weight 97.273, kg, PRN Elevated BP, Start date: 08/29/20 9:01:00 CDT, Duration: 5 doses or times, Stop date: Limited # of times Acetaminoph 1-0 No 1,000 mg, M emoria en 08-29 Route: PO, l 14:01: Drug form: Edmond 00 TAB, ONCE, Dosing Weight 97.273, kg, [...] oria ne 08-29 Route: l 14:01: IVP, [place] 00 Q5Min, Dosing Weight 97.273, kg, PRN Pain Score 7-10, Start date: 08/29/20 9:01:00 CDT, Duration: 4 doses or times, Stop date: Limited # of times Flumazenil 1-0 No 0.2 mg, Caesar lisa 08-29 Route: l 14:01: IVP, PRN, Edmond 00 Dosing Weight 97.273, kg, PRN Benzodiaze [...] ia 08-29 Route: l 14:01: IVP, ONCE, Edmond 00 Dosing Weight 97.273, kg, PRN Nausea [...] oria ne 08-29 Route: l 14:01: IVP, [place] 00 Q5Min, Dosing Weight 97.273, kg, PRN [...] oria ne 08-29 Route: l 14:01: IVP, [place] 00 Q5Min, Dosing Weight 97.273, kg, PRN Pain Score 7-10, Start date: 08/29/20 9:01:00 CDT, Duration: 4 doses or times, Stop date: Limited # of times Flumazenil 1-0 No 0.2 mg, Caesar lisa 08-29 Route: l 14:01: IVP, PRN, Edmond 00 Dosing Weight 97.273, kg, PRN Benzodiaze pine Reversal, Initial dose, Start date: 08/29/20 9:01:00 CDT, Duration: 30 day, Stop date: 09/28/20 9:00:00 CDT Naloxone 1-0 No 0.4 mg, Memori a 08-29 Route: l 14:01: IVP, [place] 00 Q2MIN, Dosing Weight 97.273, kg, PRN [...] ia 08-29 Route: l 14:01: IVP, ONCE, Edmond 00 Dosing Weight 97.273, kg, PRN Nausea [...] ia 08-29 Route: l 14:01: IVP, ONCE, Ed[place] 00 Dosing Weight 97.273, kg, PRN Nausea & Vomiting, Start date: 08/29/20 9:01:00 CDT Labetalol 1-0 No 10 mg, Memori a 08-29 Route: l 14:01: IVP, [place] 00 Q5Min, Dosing Weight 97.273, kg, PRN Elevated BP, Start date: 08/29/20 9:01:00 CDT, Duration: 5 doses or times, Stop date: Limited # of times Acetaminoph 2021-0 No 1,000 mg, M emoria en 09 Route: PO, l 14:01: Drug form: Marty [...] oria ne 08-29 Route: l 14:01: IVP, [place] 00 Q5Min, Dosing Weight 97.273, kg, PRN [...] Memori a 08-29 Route: l 14:01: IVP, [place] 00 Q5Min, Dosing Weight 97.273, kg, PRN Elevated BP, Start date: 08/29/20 9:01:00 CDT, Duration: 5 doses or times, Stop date: Limited # of times Acetaminoph 2021-0 No 1,000 mg, M emoria en 08-29 Route: PO, l 14:01: Drug form: Edmond 00 TAB, ONCE, Dosing Weight 97.273, kg, [...] oria ne 08-29 Route: l 14:01: IVP, [place] 00 Q5Min, Dosing Weight 97.273, kg, PRN [...] Memori a 08-29 Route: l 14:01: IVP, [place] 00 Q2MIN, Dosing Weight 97.273, kg, PRN [...] 08-29 Drug form: l 13:42: INJ, ONCE, Edmond Stop date: 08/29/20 8:42:00 CDT fentaNYL No [...] Drug form: l 10 13:15: INJ, Start Edmond microgram date: 08/29/20 8:15:00 CDT, Stop date: 08/29/20 9:15:00 CDT norepinephr 0 No Route: IV, Memoria ine (ANES) 08-29 Drug form: l 10 13:15: INJ, Start Marty microgram 00 date: 08/29/20 8:15:00 CDT, Stop date: 08/29/20 9:15:00 CDT norepinephr 2020-0 No Route: IV, Memoria ine (ANES) 4- Drug form: l 10 13:15: INJ, Start Edmond microgram 00 date: 08/29/20 8:15:00 CDT, Stop date: 08/29/20 9:15:00 CDT norepinephr 2020-0 No Route: IV, Memoria ine (ANES) 4- Drug form: l 10 13:15: INJ, Start Marty microgram 00 date: 08/29/20 8:15:00 CDT, Stop date: 08/29/20 9:15:00 CDT norepinephr 2020-0 No Route: IV, Memoria ine (ANES) 08-29 Drug form: l 10 13:15: INJ, Start Edmond microgram date: 08/29/20 8:15:00 CDT, Stop date: 08/29/20 9:15:00 CDT Sodium 2020-0 No Route: IV, Memor ia Chloride 4-09 Total l 0.9% IV 12:30: Volume: Edmond (ANES) 1000 00 1,000, mL Start date: [...] 4-09 Total l 0.9% IV 12:30: Volume: Edmond (ANES) 1000 00 1,000, mL Start date: 08/29/20 7:30:00 CDT, Stop date: 08/29/20 8:30:00 CDT Sodium 2021-0 No Route: IV, Memor ia Chloride 4-09 Total l 0.9% IV 12:30: Volume: Edmond (ANES) 1000 00 1,000, mL Start date: [...] PO, l Hydrochlori 11:42: Q24H, # 30 Edmond de 150 MG 00 tab, 0 Extended Refill(s) Release Tablet 24 HR Yes 150 mg = 1 Memori a Bupropion -09 tab, PO, l Hydrochlori 11:42: Q24H, # 30 Edmond de 150 MG 00 tab, 0 Extended Refill(s) Release Tablet 24 HR Yes 150 mg = 1 Memori a Bupropion - tab, PO, l Hydrochlori 11:42: Q24H, # 30 Edmond de 150 MG 00 tab, 0 Extended Refill(s) Release Tablet 24 HR Yes 150 mg = 1 Memori a Bupropion -09 tab, PO, l Hydrochlori 11:42: Q24H, # 30 Edmond de 150 MG 00 tab, 0 Extended Refill(s) Release Tablet 24 HR Yes 150 mg = 1 Memori a Bupropion -09 tab, PO, l Hydrochlori 11:42: Q24H, # 30 Edmond de 150 MG 00 tab, 0 Extended Refill(s) Release Tablet 24 HR Yes 150 mg = 1 Memori a Bupropion -09 tab, PO, l Hydrochlori 11:42: Q24H, # 30 Marty de 150 MG 00 tab, 0 Extended Refill(s) Release Tablet 24 HR Yes 150 mg = 1 Memori a Bupropion -09 tab, PO, l Hydrochlori 11:42: Q24H, # 30 Edmond de 150 MG 00 tab, 0 Extended Refill(s) Release Tablet apixaban Yes 5 mg, PO, Me moria MG Oral 4- Q12H, tab, l Tablet 11:41: 0 Marty [Eliquis] 00 Refill(s), For Atrial Fibrilatio n apixaban 5 2021-0 Yes 5 mg, PO, Me moria MG Oral 08-29 Q12H, tab, l Tablet 11:41: 0 Edmond [Eliquis] 00 Refill(s), For Atrial Fibrilatio n apixaban 5 2020-0 Yes 5 mg, PO, Me moria MG Oral - Q12H, tab, l Tablet 11:41: 0 Marty [Eliquis] 00 Refill(s), For Atrial Fibrilatio n apixaban 5 2020-0 Yes 5 mg, PO, Me moria MG Oral 08-29 Q12H, tab, l Tablet 11:41: 0 [place] [Eliquis] 00 Refill(s), For Atrial Fibrilatio n apixaban 5 2020-0 Yes 5 mg, PO, Me moria MG Oral 08-29 Q12H, tab, l Tablet 11:41: 0 [place] [Eliquis] 00 Refill(s), For Atrial Fibrilatio n apixaban 5 2020-0 Yes 5 mg, PO, Me moria MG Oral 08-29 Q12H, tab, l Tablet 11:41: 0 [place] [Eliquis] 00 Refill(s), For Atrial Fibrilatio n apixaban 5 2020-0 Yes 5 mg, PO, Me moria MG Oral 08-29 Q12H, tab, l Tablet 11:41: 0 [place] [Eliquis] 00 Refill(s), For Atrial Fibrilatio n AMIODarone 2020-0 Yes 200 mg = 1 M emoria 200 mg oral -09 tab, PO, l tablet 11:38: Daily, # Edmond 00 90 tab, 3 Refill(s) AMIODarone 2020-0 Yes 200 mg = 1 M emoria 200 mg oral -09 tab, PO, l tablet 11:38: Daily, # [place] 00 90 tab, 3 Refill(s) AMIODarone 2020-0 [...] tab, PO, l tablet 11:38: Daily, # Edmond 00 90 tab, 3 Refill(s) normal 0 [...] Descovy [place]-Tenofovi 1-21 200 mg-25 [facility] AF 00:00: mg tablet (Descovy) 00 200-25 MG tablet Emtricitabi 2018-05 Yes Descovy [place]-Ten[place] 1-21 200 mg-25 [facility] r AF 00:00: mg tablet (Descovy) [...] Filled Immunization Date Status Comments [facility] e Immunization Name Name SARS-COV-2 COVID-19 [...] Unive rsity of PFIZER VACCINE 00:00:00 [facility] SARS-COV-2 COVID-19 2020-07-23 Completed Unive rsity of PFIZER VACCINE 00:00:00 [facility] SARS-COV-2 COVID-19 2020-07-23 Completed Unive rsity of PFIZER VACCINE 00:00:00 [facility] SARS-COV-2 COVID-19 2020-07-23 Completed Unive rsity of PFIZER VACCINE 00:00:00 [facility] SARS-COV-2 COVID-19 2020-07-23 Completed Unive rsity of PFIZER VACCINE 00:00:00 [facility] SARS-COV-2 COVID-19 2020-07-23 Completed Unive rsity of PFIZER VACCINE 00:00:00 [facility] SARS-COV-2 COVID-19 2020-07-23 Completed Unive rsity of PFIZER VACCINE 00:00:00 [facility] SARS-COV-2 COVID-19 2020-07-23 Completed Unive rsity of PFIZER VACCINE 00:00:00 [facility] SARS-COV-2 COVID-19 2020-07-23 Completed Unive rsity of PFIZER VACCINE 00:00:00 [facility] SARS-COV-2 COVID-19 2020-07-23 Completed Unive rsity of PFIZER VACCINE 00:00:00 [facility] SARS-COV-2 COVID-19 2020-07-23 Completed Unive rsity of PFIZER VACCINE 00:00:00 [facility] SARS-COV-2 COVID-19 2020-07-23 Completed Unive rsity of PFIZER VACCINE 00:00:00 [facility] SARS-COV-2 COVID-19 2020-07-23 Completed Unive rsity of PFIZER VACCINE 00:00:00 [facility] SARS-COV-2 COVID-19 2020-07-23 Completed Unive rsity of PFIZER VACCINE 00:00:00 [facility] SARS-COV-2 COVID-19 2020-07-23 Completed Unive rsity of PFIZER VACCINE 00:00:00 [facility] SARS-COV-2 COVID-19 2020-07-23 Completed Unive rsity of PFIZER VACCINE 00:00:00 [facility] SARS-COV-2 COVID-19 2020-07-23 Completed Unive rsity of PFIZER VACCINE 00:00:00 [facility] SARS-COV-2 COVID-19 2020-07-23 Completed Unive rsity of PFIZER VACCINE 00:00:00 [facility] PFIZER COVID-19 2020-07-23 Completed [facility] MRNA VACCINATION 00:00:00 [facility] PFIZER COVID-19 2020-07-23 Completed Shinto MRNA VACCINATION 00:00:00 [facility] PFIZER COVID-19 2020-07-23 Completed Shinto MRNA VACCINATION 00:00:00 [facility] PFIZER COVID-19 2020-07-23 Completed Shinto MRNA VACCINATION 00:00:00 [facility] PFIZER COVID-19 2020-07-23 Completed Shinto MRNA VACCINATION 00:00:00 [facility] PFIZER COVID-19 2020-07-23 Completed Shinto MRNA VACCINATION 00:00:00 [facility] PFIZER COVID-19 2020-07-23 Completed Shinto MRNA VACCINATION 00:00:00 [facility] PFIZER COVID-19 2020-07-23 Completed Shinto MRNA VACCINATION 00:00:00 [facility] PFIZER COVID-19 2020-07-23 Completed Shinto MRNA VACCINATION 00:00:00 [facility] PFIZER COVID-19 2020-07-23 Completed Shinto MRNA VACCINATION 00:00:00 [facility] PFIZER COVID-19 2020-07-23 Completed Shinto MRNA VACCINATION 00:00:00 [facility] PFIZER COVID-19 2020-07-23 Completed Shinto MRNA VACCINATION 00:00:00 [facility] PFIZER COVID-19 2020-07-23 Completed Shinto MRNA VACCINATION 00:00:00 [facility] PFIZER COVID-19 2020-07-23 Completed Shinto MRNA VACCINATION 00:00:00 [facility] PFIZER COVID-19 2020-07-23 Completed Shinto MRNA VACCINATION 00:00:00 [facility] PFIZER COVID-19 2020-07-23 Completed Shinto MRNA VACCINATION 00:00:00 [facility] PFIZER COVID-19 2020-07-23 Completed Shinto MRNA VACCINATION 00:00:00 [facility] PEG COVID-19 2020-07-23 Completed Shinto MRNA VACCINATION 00:00:00 [facility] PEG COVID-19 2020-07-23 Completed Shinto MRNA VACCINATION 00:00:00 [facility] PFIZER COVID-19 2020-07-23 Completed Shinto MRNA VACCINATION 00:00:00 [facility] PEG COVID-19 2020-07-23 Completed Shinto MRNA VACCINATION 00:00:00 [facility] PFIZER COVID-19 2020-07-23 Completed Shinto MRNA VACCINATION 00:00:00 [facility] PEG COVID-19 2020-07-23 Completed Shinto MRNA VACCINATION 00:00:00 [facility] PEG COVID-19 2020-07-23 Completed Shinto MRNA VACCINATION 00:00:00 [facility] PEG COVID-19 2020-07-23 Completed Shinto MRNA VACCINATION 00:00:00 [facility] PEG COVID-19 2020-07-23 Completed Shinto MRNA VACCINATION 00:00:00 [facility] PEG COVID-19 2020-07-23 Completed Shinto MRNA VACCINATION 00:00:00 [facility] PEG COVID-19 2020-07-23 Completed Shinto MRNA VACCINATION 00:00:00 [facility] PEG COVID-19 2020-07-23 Completed Shinto MRNA VACCINATION 00:00:00 [facility] PEG COVID-19 2020-07-23 Completed Shinto MRNA VACCINATION 00:00:00 [facility] PFIZER COVID-19 2020-07-23 Completed Shinto MRNA VACCINATION 00:00:00 [facility] PFIZER COVID-19 2020-07-23 Completed Shinto MRNA VACCINATION 00:00:00 [facility] PFIZER COVID-19 2020-07-23 Completed Shinto MRNA VACCINATION 00:00:00 [facility] PFIZER COVID-19 2020-07-23 Completed Shinto MRNA VACCINATION 00:00:00 [facility] PFIZER COVID-19 2020-07-23 Completed Shinto MRNA VACCINATION 00:00:00 [facility] PFIZER COVID-19 2020-07-23 Completed Shinto MRNA VACCINATION 00:00:00 [facility] PFIZER COVID-19 2020-07-23 Completed [facility] MRNA VACCINATION 00:00:00 [facility] PFIZER COVID-19 2020-07-23 Completed Shinto MRNA VACCINATION 00:00:00 [facility] PFIZER COVID-19 2020-07-23 Completed Shinto MRNA VACCINATION 00:00:00 [facility] PFIZER COVID-19 2020-07-23 Completed Shinto MRNA VACCINATION 00:00:00 [facility] PFIZER COVID-19 2020-07-23 Completed Shinto MRNA VACCINATION 00:00:00 [facility] PFIZER COVID-19 2020-07-23 Completed Shinto MRNA VACCINATION 00:00:00 [facility] PFIZER COVID-19 2020-07-23 Completed Shinto MRNA VACCINATION 00:00:00 [facility] PFIZER COVID-19 2020-07-23 Completed Shinto MRNA VACCINATION 00:00:00 [facility] PFIZER COVID-19 2020-07-23 Completed Shinto MRNA VACCINATION 00:00:00 [facility] PFIZER COVID-19 2020-07-23 Completed Shinto MRNA VACCINATION 00:00:00 [facility] PFIZER COVID-19 2020-07-23 Completed Shinto MRNA VACCINATION 00:00:00 [facility] PFIZER COVID-19 2020-07-23 Completed Shinto MRNA VACCINATION 00:00:00 [facility] PFIZER COVID-19 2020-07-23 Completed Shinto MRNA VACCINATION 00:00:00 [facility] PFIZER COVID-19 2020-07-23 Completed Shinto MRNA VACCINATION 00:00:00 [facility] PFIZER COVID-19 2020-07-23 Completed Shinto MRNA VACCINATION 00:00:00 [facility] PFIZER COVID-19 2020-07-23 Completed Shinto MRNA VACCINATION 00:00:00 [facility] PFIZER COVID-19 2020-07-23 Completed Shinto MRNA VACCINATION 00:00:00 [facility] SARS-COV-2 COVID-19 2020-07-02 Completed Unive rsity of PFIZER VACCINE 00:00:00 [facility] SARS-COV-2 COVID-19 2020-07-02 Completed Unive rsity of PFIZER VACCINE 00:00:00 [facility] SARS-COV-2 COVID-19 2020-07-02 Completed Unive rsity of PFIZER VACCINE 00:00:00 [facility] SARS-COV-2 COVID-19 2020-07-02 Completed Unive rsity of PFIZER VACCINE 00:00:00 [facility] SARS-COV-2 COVID-19 2020-07-02 Completed Unive rsity of PFIZER VACCINE 00:00:00 [facility] SARS-COV-2 COVID-19 2020-07-02 Completed Unive rsity of PFIZER VACCINE 00:00:00 [facility] SARS-COV-2 COVID-19 2020-07-02 Completed Unive rsity of PFIZER VACCINE 00:00:00 [facility] SARS-COV-2 COVID-19 2020-07-02 Completed Unive rsity of PFIZER VACCINE 00:00:00 [facility] SARS-COV-2 COVID-19 2020-07-02 Completed Unive rsity of PFIZER VACCINE 00:00:00 [facility] SARS-COV-2 COVID-19 2020-07-02 Completed Unive rsity of PFIZER VACCINE 00:00:00 [facility] SARS-COV-2 COVID-19 2020-07-02 Completed Unive rsity of PFIZER VACCINE 00:00:00 [facility] SARS-COV-2 COVID-19 2020-07-02 Completed Unive rsity of PFIZER VACCINE 00:00:00 [facility] SARS-COV-2 COVID-19 2020-07-02 Completed Unive rsity of PFIZER VACCINE 00:00:00 [facility] SARS-COV-2 COVID-19 2020-07-02 Completed Unive rsity of PFIZER VACCINE 00:00:00 [facility] SARS-COV-2 COVID-19 2020-07-02 Completed Unive rsity of PFIZER VACCINE 00:00:00 [facility] SARS-COV-2 COVID-19 2020-07-02 Completed Unive rsity of PFIZER VACCINE 00:00:00 [facility] SARS-COV-2 COVID-19 2020-07-02 Completed Unive rsity of PFIZER VACCINE 00:00:00 [facility] SARS-COV-2 COVID-19 2020-07-02 Completed Unive rsity of PFIZER VACCINE 00:00:00 [facility] PFIZER COVID-19 2020-07-02 Completed Sh[facility] MRNA VACCINATION 00:00:00 [facility] PFIZER COVID-19 2020-07-02 Completed [facility] MRNA VACCINATION 00:00:00 Hospital PFIZER COVID-19 2020-07-02 Completed Shinto MRNA VACCINATION 00:00:00 [facility] PFIZER COVID-19 2020-07-02 Completed Shinto MRNA VACCINATION 00:00:00 [facility] PFIZER COVID-19 2020-07-02 Completed Shinto MRNA VACCINATION 00:00:00 [facility] PFIZER COVID-19 2020-07-02 Completed Shinto MRNA VACCINATION 00:00:00 [facility] PFIZER COVID-19 2020-07-02 Completed Shinto MRNA VACCINATION 00:00:00 [facility] PFIZER COVID-19 2020-07-02 Completed Shinto MRNA VACCINATION 00:00:00 [facility] PFIZER COVID-19 2020-07-02 Completed Shinto MRNA VACCINATION 00:00:00 [facility] PFIZER COVID-19 2020-07-02 Completed Shinto MRNA VACCINATION 00:00:00 [facility] PFIZER COVID-19 2020-07-02 Completed Shinto MRNA VACCINATION 00:00:00 [facility] PFIZER COVID-19 2020-07-02 Completed Shinto MRNA VACCINATION 00:00:00 [facility] PFIZER TRAYID-19 2020-07-02 Completed Shinto MRNA VACCINATION 00:00:00 [facility] PFIZER COVID-19 2020-07-02 Completed Shinto MRNA VACCINATION 00:00:00 [facility] PFIZER COVID-19 2020-07-02 Completed Shinto MRNA VACCINATION 00:00:00 [facility] PFIZER COVID-19 2020-07-02 Completed Shinto MRNA VACCINATION 00:00:00 [facility] PFIZER COVID-19 2020-07-02 Completed Shinto MRNA VACCINATION 00:00:00 [facility] PFIZER COVID-19 2020-07-02 Completed Shinto MRNA VACCINATION 00:00:00 [facility] PFIZER COVID-19 2020-07-02 Completed Shinto MRNA VACCINATION 00:00:00 [facility] PFIZER COVID-19 2020-07-02 Completed Shinto MRNA VACCINATION 00:00:00 [facility] PFIZER COVID-19 2020-07-02 Completed Shinto MRNA VACCINATION 00:00:00 [facility] PFIZER COVID-19 2020-07-02 Completed Shinto MRNA VACCINATION 00:00:00 [facility] PFIZER COVID-19 2020-07-02 Completed Shinto MRNA VACCINATION 00:00:00 [facility] PFIZER COVID-19 2020-07-02 Completed Shinto MRNA VACCINATION 00:00:00 [facility] PFIZER COVID-19 2020-07-02 Completed Shinto MRNA VACCINATION 00:00:00 [facility] PFIZER COVID-19 2020-07-02 Completed Shinto MRNA VACCINATION 00:00:00 [facility] PFIZER COVID-19 2020-07-02 Completed Shinto MRNA VACCINATION 00:00:00 [facility] PFIZER COVID-19 2020-07-02 Completed Shinto MRNA VACCINATION 00:00:00 [facility] PFIZER COVID-19 2020-07-02 Completed Shinto MRNA VACCINATION 00:00:00 [facility] PFIZER COVID-19 2020-07-02 Completed Shinto MRNA VACCINATION 00:00:00 [facility] PFIZER COVID-19 2020-07-02 Completed Shinto MRNA VACCINATION 00:00:00 [facility] PFIZER COVID-19 2020-07-02 Completed Shinto MRNA VACCINATION 00:00:00 [facility] PFIZER COVID-19 2020-07-02 Completed Shinto MRNA VACCINATION 00:00:00 [facility] PFIZER COVID-19 2020-07-02 Completed Shinto MRNA VACCINATION 00:00:00 [facility] PEG COVID-19 2020-07-02 Completed Shinto MRNA VACCINATION 00:00:00 [facility] PEG FELIZID-19 2020-07-02 Completed Shinto MRNA VACCINATION 00:00:00 [facility] PFIZER COVID-19 2020-07-02 Completed Shinto MRNA VACCINATION 00:00:00 [facility] PFIZER COVID-19 2020-07-02 Completed Shinto MRNA VACCINATION 00:00:00 [facility] PFIZER COVID-19 2020-07-02 Completed Shinto MRNA VACCINATION 00:00:00 [facility] PFIZER COVID-19 2020-07-02 Completed Shinto MRNA VACCINATION 00:00:00 [facility] PEG COVID-19 2020-07-02 Completed Shinto MRNA VACCINATION 00:00:00 [facility] PFIZER COVID-19 2020-07-02 Completed Shinto MRNA VACCINATION 00:00:00 [facility] PFIZER COVID-19 2020-07-02 Completed Shinto MRNA VACCINATION 00:00:00 [facility] PFIZER COVID-19 2020-07-02 Completed Shinto MRNA VACCINATION 00:00:00 [facility] PFIZER COVID-19 2020-07-02 Completed Shinto MRNA VACCINATION 00:00:00 [facility] PFIZER COVID-19 2020-07-02 Completed Shinto MRNA VACCINATION 00:00:00 [facility] PFIZER COVID-19 2020-07-02 Completed Shinto MRNA VACCINATION 00:00:00 [facility] PFIZER COVID-19 2020-07-02 Completed Shinto MRNA VACCINATION 00:00:00 [facility] PFIZER COVID-19 2020-07-02 Completed Shinto MRNA VACCINATION 00:00:00 [facility] PFIZER COVID-19 2020-07-02 Completed [facility] MRNA VACCINATION 00:00:00 Hospital PFIZER COVID-19 2020-07-02 Completed Shinto MRNA VACCINATION 00:00:00 [facility] PFIZER COVID-19 2020-07-02 Completed Shinto MRNA VACCINATION 00:00:00 [facility] PFIZER COVID-19 2020-07-02 Completed [facility] MRNA VACCINATION 00:00:00 [facility] Influenza Virus 2017-03-08 Completed [facility]ine 00:00:00 [facility] Influenza Virus 2017-03-08 Completed [facility] Vaccine 00:00:00 [facility] Influenza Virus 2017-03-08 Completed [facility] Vaccine 00:00:00 [facility] Influenza Virus 2017-03-08 Completed [facility] Vaccine 00:00:00 [facility] Influenza Virus 2017-03-08 Completed [facility] Vaccine 00:00:00 [facility] Influenza Virus 2017-03-08 Completed [facility] Vaccine 00:00:00 [facility] Influenza Virus 2017-03-08 Completed [facility] Vaccine 00:00:00 [facility] Influenza Virus 2017-03-08 Completed [facility] Vaccine 00:00:00 [facility] Influenza Virus 2017-03-08 Completed [facility] Vaccine 00:00:00 [facility] Influenza Virus 2017-03-08 Completed [facility] Vaccine 00:00:00 [facility] Influenza Virus 2017-03-08 Completed [facility] Vaccine 00:00:00 [facility] Influenza Virus 2017-03-08 Completed [facility] Vaccine 00:00:00 [facility] Influenza Virus 2017-03-08 Completed [facility] Vaccine 00:00:00 [facility] Influenza Virus 2017-03-08 Completed [facility] Vaccine 00:00:00 [facility] Influenza Virus 2017-03-08 Completed [facility] Vaccine 00:00:00 [facility] Influenza Virus 2017-03-08 Completed [facility] Vaccine 00:00:00 [facility] Influenza Virus 2017-03-08 Completed [facility] Vaccine 00:00:00 [facility] Influenza Virus 2017-03-08 Completed [facility] Vaccine 00:00:00 [facility] Influenza Virus 2017-03-08 Completed [facility] Vaccine 00:00:00 [facility] Influenza Virus 2017-03-08 Completed [facility] Vaccine 00:00:00 [facility] Influenza Virus 2017-03-08 Completed [facility] Vaccine 00:00:00 [facility] Influenza Virus 2017-03-08 Completed [facility] Vaccine 00:00:00 [facility] Influenza Virus 2014-01-30 Completed [facility] Vaccine (3+ yrs) 00:00:00 [facility] Pneum[facility] 13 2014-01-30 Completed [facility] Conjugate, PCV13 00:00:00 [facility] dical (Prevnar 13) Branch Influenza Virus 2014-01-30 Completed [facility] Vaccine (3+ yrs) 00:00:00 [facility] dical Branch Pneumococcal 13 2014-01-30 Completed [facility]it y of Conjugate, PCV13 00:00:00 [facility] dical (Prevnar 13) Branch Influenza Virus 2014-01-30 Completed [facility] Vacc[facility] (3+ yrs) 00:[facility] 2014-01-30 Completed [facility]it [facility] of Conjugate, PCV13 00:00:00 [facility] dical (Prevnar 13) Branch Influenza Virus 2014-01-30 Completed [facility]it [facility] of Vaccine (3+ yrs) 00:00:00 [facility] dical Branch Pneumococcal 13 2014-01-30 Completed [facility]it y of Conjugate, PCV13 00:00:00 [facility] dical (Prevnar 13) Branch Influenza Virus 2014-01-30 Completed [facility] of Vaccine (3+ yrs) 00:00:00 [facility] dical Branch Pneumococcal 13 2014-01-30 Completed [facility]it [facility] of Conjugate, PCV13 00:00:00 [facility] dical (Prevnar 13) Branch Influenza Virus 2014-01-30 Completed [facility]it [facility] of Vaccine (3+ yrs) 00:00:00 [facility] dical Branch Pneumococcal 13 2014-01-30 Completed [facility]it y of Conjugate, PCV13 00:00:00 [facility] dical (Prevnar 13) Branch Influenza Virus 2014-01-30 Completed [facility] of Vaccine (3+ yrs) 00:00:00 [facility] dical Branch Pneumococcal 13 2014-01-30 Completed [facility]it [facility] of Conjugate, PCV13 00:00:00 [facility] dical (Prevnar 13) Branch Influenza Virus 2014-01-30 Completed [facility] of Vaccine (3+ yrs) 00:00:00 [place] [facility] Pneumococcal 13 2014-01-30 Completed [facility]it [facility] of Conjugate, PCV13 00:00:00 [place] [facility] (Prevnar 13) Branch Influenza Virus 2014-01-30 Completed [facility] of Vaccine (3+ yrs) 00:00:00 [place] [facility] Pneumococcal 13 2014-01-30 Completed [facility]it y of Conjugate, PCV13 00:00:00 [facility] dical (Prevnar 13) Branch Influenza Virus 2014-01-30 Completed [facility] of Vaccine (3+ yrs) 00:00:00 [place] [facility] Pneumococcal 13 2014-01-30 Completed [facility] of Conjugate, PCV13 00:00:00 [place] [facility] (Prevnar 13) Branch Influenza Virus 2014-01-30 Completed [facility] of Vaccine (3+ yrs) 00:00:00 [facility] dical Branch Pneumococcal 13 2014-01-30 Completed [facility]it y of Conjugate, PCV13 00:00:00 [facility] dical (Prevnar 13) Branch Influenza Virus 2014-01-30 Completed [facility] of Vaccine (3+ yrs) 00:00:00 [facility] dical Branch Pneumococcal 13 2014-01-30 Completed [facility] of Conjugate, PCV13 00:00:00 [facility] dical (Prevnar 13) Branch Influenza Virus 2014-01-30 Completed [facility] of Vaccine (3+ yrs) 00:00:00 [facility] dical Branch Pneumococcal 13 2014-01-30 Completed [facility]it y of Conjugate, PCV13 00:00:00 [facility] dical (Prevnar 13) Branch Influenza Virus 2014-01-30 Completed [facility] of Vaccine (3+ yrs) 00:00:00 [facility] dical Branch Pneumococcal 13 2014-01-30 Completed [facility]it y of Conjugate, PCV13 00:00:00 [facility] dical (Prevnar 13) Branch Influenza Virus 2014-01-30 Completed [facility] of Vaccine (3+ yrs) 00:00:00 [facility] dical Branch Pneumococcal 13 2014-01-30 Completed [facility]it [facility] of Conjugate, PCV13 00:00:00 [facility] dical (Prevnar 13) Branch Influenza Virus 2014-01-30 Completed [facility] of Vaccine (3+ yrs) 00:00:00 [facility] dical Branch Pneumococcal 13 2014-01-30 Completed [facility]it [facility] of Conjugate, PCV13 00:00:00 [facility] dical (Prevnar 13) Branch Influenza Virus 2014-01-30 Completed [facility] of Vaccine (3+ yrs) 00:00:00 [facility] dical Branch Pneumococcal 13 2014-01-30 Completed [facility]it [facility] of Conjugate, PCV13 00:00:00 [facility] dical (Prevnar 13) Branch Influenza Virus 2014-01-30 Completed [facility] of Vaccine (3+ yrs) 00:00:00 [facility] dical Branch Pneumococcal 13 2014-01-30 Completed [facility]it [facility] of Conjugate, PCV13 00:00:00 [facility] dical (Prevnar 13) Branch Influenza Virus 2014-01-30 Completed [facility] of Vaccine (3+ yrs) 00:00:00 [facility] dical Branch Pneumococcal 13 2014-01-30 Completed [facility]it [facility] of Conjugate, PCV13 00:00:00 [facility] dical (Prevnar 13) Branch Influenza Virus 2014-01-30 Completed [facility]it [facility] of Vaccine (3+ yrs) 00:00:00 [facility] dical Branch Pneumococcal 13 2014-01-30 Completed [facility]it [facility] of Conjugate, PCV13 00:00:00 [facility] dical (Prevnar 13) Branch Influenza Virus 2014-01-30 Completed [facility] of Vaccine (3+ yrs) 00:00:00 [facility] dical Branch Pneumococcal 13 2014-01-30 Completed [facility]it y of Conjugate, PCV13 00:00:00 [facility] dical (Prevnar 13) Branch Influenza Virus 2014-01-30 Completed [facility] of Vaccine (3+ yrs) 00:00:00 [facility] dical Branch Pneumococcal 13 2014-01-30 Completed [facility]it y of Conjugate, PCV13 00:00:00 [facility] dical (Prevnar 13) Branch Pneumococcal 2012-02-16 Completed University o f Polysaccharide, 00:00:00 [facility] ical PPSV23 (PNEUMOVAX) Branch Influenza Virus 2012-02-16 Completed [facility]it y of Vaccine 00:00:00 [facility] PPD (TB) 2012-02-16 Completed University of 00:00:00 [facility] Pneumococcal 2012-02-16 Completed University o f Polysaccharide, 00:00:00 [facility] ical PPSV23 (PNEUMOVAX) Branch Influenza Virus 2012-02-16 Completed [facility]it [facility] of Vaccine 00:00:00 [facility] PPD (TB) 2012-02-16 Completed [facility] of 00:00:00 [facility] Pneumococcal 2012-02-16 Completed University o f Polysaccharide, 00:00:00 [place] [facility] PPSV23 (PNEUMOVAX) Branch Influenza Virus 2012-02-16 Completed [facility]it [facility] of Vaccine 00:00:00 [facility] PPD (TB) 2012-02-16 Completed [facility] of 00:00:00 [facility] Pneumococcal 2012-02-16 Completed University o f Polysaccharide, 00:00:00 [place] [facility] PPSV23 (PNEUMOVAX) Branch Influenza Virus 2012-02-16 Completed [facility]it [facility] of Vaccine 00:00:00 [facility] PPD (TB) 2012-02-16 Completed [facility] of 00:00:00 [facility] Pneumococcal 2012-02-16 Completed [facility] o f Polysaccharide, 00:00:00 [place] [facility] PPSV23 (PNEUMOVAX) Branch Influenza Virus 2012-02-16 Completed [facility]it [facility] of Vaccine 00:00:00 [facility] PPD (TB) 2012-02-16 Completed University of 00:00:00 [facility] Pneumococcal 2012-02-16 Completed University o f Polysaccharide, 00:00:00 [place] [facility] PPSV23 (PNEUMOVAX) Branch Influenza Virus 2012-02-16 Completed [facility] of Vaccine 00:00:00 [facility] PPD (TB) 2012-02-16 Completed [facility] of 00:00:00 [facility] Pneumococcal 2012-02-16 Completed [facility] o f Polysaccharide, 00:00:00 [place] [facility] PPSV23 (PNEUMOVAX) Branch Influenza Virus 2012-02-16 Completed [facility] of Vaccine 00:00:00 [facility] PPD (TB) 2012-02-16 Completed [facility] of 00:00:00 [facility] Pneumococcal 2012-02-16 Completed [facility] o f Polysaccharide, 00:00:00 [place] [facility] PPSV23 (PNEUMOVAX) Branch Influenza Virus 2012-02-16 Completed [facility] of Vaccine 00:00:00 [facility] PPD (TB) 2012-02-16 Completed [facility] of 00:00:00 [facility] Pneumococcal 2012-02-16 Completed [facility] o f Polysaccharide, 00:00:00 [place] [facility] PPSV23 (PNEUMOVAX) Branch Influenza Virus 2012-02-16 Completed [facility] of Vaccine 00:00:00 [facility] PPD (TB) 2012-02-16 Completed [facility] of 00:00:00 [facility] Pneumococcal 2012-02-16 Completed [facility] o f Polysaccharide, 00:00:00 [place] [facility] PPSV23 (PNEUMOVAX) Branch Influenza Virus 2012-02-16 Completed [facility] of Vaccine 00:00:00 [facility] PPD (TB) 2012-02-16 Completed [facility] of 00:00:00 [facility] Pneumococcal 2012-02-16 Completed [facility] o f Polysaccharide, 00:00:00 [place] [facility] PPSV23 (PNEUMOVAX) Branch Influenza Virus 2012-02-16 Completed [facility]it [facility] of Vaccine 00:00:00 [facility] PPD (TB) 2012-02-16 Completed University of 00:00:00 [facility] Pneumococcal 2012-02-16 Completed [facility] o f Polysaccharide, 00:00:00 [place] [facility] PPSV23 (PNEUMOVAX) Branch Influenza Virus 2012-02-16 Completed [facility]it [facility] of Vaccine 00:00:00 [facility] PPD (TB) 2012-02-16 Completed University of 00:00:00 [facility] Pneumococcal 2012-02-16 Completed [facility] o f Polysaccharide, 00:00:00 [place] [facility] PPSV23 (PNEUMOVAX) Branch Influenza Virus 2012-02-16 Completed [facility] of Vaccine 00:00:00 [facility] PPD (TB) 2012-02-16 Completed University of 00:00:00 [facility] Pneumococcal 2012-02-16 Completed [facility] o f Polysaccharide, 00:00:00 [place] [facility] PPSV23 (PNEUMOVAX) Branch Influenza Virus 2012-02-16 Completed [facility]it [facility] of Vaccine 00:00:00 [facility] PPD (TB) 2012-02-16 Completed University of 00:00:00 [facility] Pneumococcal 2012-02-16 Completed [facility] o f Polysaccharide, 00:00:00 [place] [facility] PPSV23 (PNEUMOVAX) Branch Influenza Virus 2012-02-16 Completed [facility]it [facility] of Vaccine 00:00:00 [facility] PPD (TB) 2012-02-16 Completed University of 00:00:00 [facility] Pneumococcal 2012-02-16 Completed [facility] o f Polysaccharide, 00:00:00 [place] [facility] PPSV23 (PNEUMOVAX) Branch Influenza Virus 2012-02-16 Completed [facility] of Vaccine 00:00:00 [facility] PPD (TB) 2012-02-16 Completed University of 00:00:00 [facility] Pneumococcal 2012-02-16 Completed [facility] o f Polysaccharide, 00:00:00 [place] [facility] PPSV23 (PNEUMOVAX) Branch Influenza Virus 2012-02-16 Completed [facility]it [facility] of Vaccine 00:00:00 [facility] PPD (TB) 2012-02-16 Completed [facility] of 00:00:00 [facility] Pneumococcal 2012-02-16 Completed [facility] o f Polysaccharide, 00:00:00 [place] [facility] PPSV23 (PNEUMOVAX) Branch Influenza Virus 2012-02-16 Completed [facility]it [facility] of Vaccine 00:00:00 [facility] PPD (TB) 2012-02-16 Completed [facility] of 00:00:00 [facility] Pneumococcal 2012-02-16 Completed [facility] o f Polysaccharide, 00:00:00 [place] [facility] PPSV23 (PNEUMOVAX) Branch Influenza Virus 2012-02-16 Completed [facility] of Vaccine 00:00:00 [facility] PPD (TB) 2012-02-16 Completed University of 00:00:00 [facility] Pneumococcal 2012-02-16 Completed [facility] o f Polysaccharide, 00:00:00 [place] [facility] PPSV23 (PNEUMOVAX) Branch Influenza Virus 2012-02-16 Completed [facility]it [facility] of Vaccine 00:00:00 [facility] PPD (TB) 2012-02-16 Completed [facility] of 00:00:00 [facility] Pneumococcal 2012-02-16 Completed [facility] o f Polysaccharide, 00:00:00 [place] [facility] PPSV23 (PNEUMOVAX) Branch Influenza Virus 2012-02-16 Completed [facility] of Vaccine 00:00:00 [facility] PPD (TB) 2012-02-16 Completed [facility] of 00:00:00 [facility] Pneumococcal 2012-02-16 Completed [facility] o f Polysaccharide, 00:00:00 [place] [facility] PPSV23 (PNEUMOVAX) Branch Influenza Virus 2012-02-16 Completed [facility] of Vaccine 00:00:00 [facility] PPD (TB) 2012-02-16 Completed University of 00:00:00 [facility] Hep B, Adol or Pedi 2011-09-01 Completed Unive rsity of Dosage 00:00:00 [facility] Hep B, Adol or Pedi 2011-09-01 Completed Unive rsity of Dosage 00:00:00 [facility] Hep B, Adol or Pedi [...] Unive rsity of Dosage 00:00:00 [facility] Hep B, Adol or Pedi 2011-03-17 Completed Unive rsity of Dosage 00:00:00 [facility] Hep B, Adol or Pedi 2011-03-17 Completed Unive rsity of Dosage 00:00:00 [facility] Hep B, Adol or Pedi 2011-03-17 Completed Unive rsity of Dosage 00:00:00 [facility] Hep B, Adol or Pedi 2011-03-17 Completed Unive rsity of Dosage 00:00:00 [facility] Hep B, Adol or Pedi 2011-03-17 Completed Unive rsity of Dosage 00:00:00 [facility] Influenza Virus 2011-02-10 Completed [facility]it y of Vaccine 00:00:00 [facility] Hep B, Adol or Pedi 2011-02-10 Completed Unive rsity of Dosage 00:00:00 [facility] Influenza Virus 2011-02-10 Completed [facility] of Vaccine 00:00:00 [facility] Hep B, Adol or Pedi 2011-02-10 Completed Unive rsity of Dosage 00:00:00 [facility] Influenza Virus 2011-02-10 Completed [facility]it y of Vaccine 00:00:00 [facility] Hep B, Adol or Pedi 2011-02-10 Completed Unive rsity of Dosage 00:00:00 [facility] Influenza Virus 2011-02-10 Completed [facility] of Vaccine 00:00:00 [facility] Hep B, Adol or Pedi 2011-02-10 Completed Unive rsity of Dosage 00:00:00 [facility] Influenza Virus 2011-02-10 Completed [facility] of Vaccine 00:00:00 [facility] Hep B, Adol or Pedi 2011-02-10 Completed Unive rsity of Dosage 00:00:00 [facility] Influenza Virus 2011-02-10 Completed [facility] y of Vaccine 00:00:00 [facility] Hep B, Adol or Pedi 2011-02-10 Completed Unive rsity of Dosage 00:00:00 [facility] Influenza Virus 2011-02-10 Completed [facility] of Vaccine 00:00:00 [facility] Hep B, Adol or Pedi 2011-02-10 Completed Unive rsity of Dosage 00:00:00 [facility] Influenza Virus 2011-02-10 Completed [facility] y of Vaccine 00:00:00 [facility] Hep B, Adol or Pedi 2011-02-10 Completed Unive rsity of Dosage 00:00:00 [facility] Influenza Virus 2011-02-10 Completed [facility] y of Vaccine 00:00:00 [facility] Hep B, Adol or Pedi 2011-02-10 Completed Unive rsity of Dosage 00:00:00 [facility] Influenza Virus 2011-02-10 Completed [facility] y of Vaccine 00:00:00 [facility] Hep B, Adol or Pedi 2011-02-10 Completed Unive rsity of Dosage 00:00:00 [facility] Influenza Virus 2011-02-10 Completed [facility] y of Vaccine 00:00:00 [facility] Hep B, Adol or Pedi 2011-02-10 Completed Unive rsity of Dosage 00:00:00 [facility] Influenza Virus 2011-02-10 Completed [facility] y of Vaccine 00:00:00 [facility] Hep B, Adol or Pedi 2011-02-10 Completed Unive rsity of Dosage 00:00:00 [facility] Influenza Virus 2011-02-10 Completed [facility] y of Vaccine 00:00:00 [facility] Hep B, Adol or Pedi 2011-02-10 Completed Unive rsity of Dosage 00:00:00 [facility] Influenza Virus 2011-02-10 Completed [facility] of Vaccine 00:00:00 [facility] Hep B, Adol or Pedi 2011-02-10 Completed Unive rsity of Dosage 00:00:00 [facility] Influenza Virus 2011-02-10 Completed [facility] of Vaccine 00:00:00 [facility] Hep B, Adol or Pedi 2011-02-10 Completed Unive rsity of Dosage 00:00:00 [facility] Influenza Virus 2011-02-10 Completed [facility] y of Vaccine 00:00:00 [facility] Hep B, Adol or Pedi 2011-02-10 Completed Unive rsity of Dosage 00:00:00 [facility] Influenza Virus 2011-02-10 Completed [facility] of Vaccine 00:00:00 [facility] Hep B, Adol or Pedi 2011-02-10 Completed Unive rsity of Dosage 00:00:00 [facility] Influenza Virus 2011-02-10 Completed [facility] y of Vaccine 00:00:00 [facility] Hep B, Adol or Pedi 2011-02-10 Completed Unive rsity of Dosage 00:00:00 [facility] Influenza Virus 2011-02-10 Completed [facility] y of Vaccine 00:00:00 [facility] Hep B, Adol or Pedi 2011-02-10 Completed Unive rsity of Dosage 00:00:00 [facility] Influenza Virus 2011-02-10 Completed [facility] of Vaccine 00:00:00 [facility] Hep B, Adol or Pedi 2011-02-10 Completed Unive rsity of Dosage 00:00:00 [facility] Influenza Virus 2011-02-10 Completed [facility] y of Vaccine 00:00:00 [facility] Hep B, Adol or Pedi 2011-02-10 Completed Unive rsity of Dosage 00:00:00 [facility] Influenza Virus 2011-02-10 Completed [facility] of Vaccine 00:00:00 [facility] Hep B, Adol or Pedi 2011-02-10 Completed Unive rsity of Dosage 00:00:00 [facility] PPD (TB) 2010-11-18 Completed University of 00:00:00 [facility] TDAP (ADACEL) 2010-11-18 Completed University of VACCINE 00:00:00 [facility] PPD (TB) 2010-11-18 Completed University of 00:00:00 [facility] TDAP (ADACEL) 2010-11-18 Completed University of VACCINE 00:00:00 [facility] PPD (TB) 2010-11-18 Completed University of 00:00:00 [facility] TDAP (ADACEL) 2010-11-18 Completed University of VACCINE 00:00:00 [facility] PPD (TB) 2010-11-18 Completed University of 00:00:00 [facility] TDAP (ADACEL) 2010-11-18 Completed University of VACCINE 00:00:00 [facility] PPD (TB) 2010-11-18 Completed [facility] of 00:00:00 [facility] TDAP (ADACEL) 2010-11-18 Completed University of VACCINE 00:00:00 [facility] PPD (TB) 2010-11-18 Completed [facility] of 00:00:00 [facility] TDAP (ADACEL) 2010-11-18 Completed University of VACCINE 00:00:00 [facility] PPD (TB) 2010-11-18 Completed [facility] of 00:00:00 [facility] TDAP (ADACEL) 2010-11-18 Completed University of VACCINE 00:00:00 [facility] PPD (TB) 2010-11-18 Completed University of 00:00:00 [facility] TDAP (ADACEL) 2010-11-18 Completed University of VACCINE 00:00:00 [facility] PPD (TB) 2010-11-18 Completed University of 00:00:00 [facility] TDAP (ADACEL) 2010-11-18 Completed University of VACCINE 00:00:00 [facility] PPD (TB) 2010-11-18 Completed University of 00:00:00 [facility] TDAP (ADACEL) 2010-11-18 Completed University of VACCINE 00:00:00 [facility] PPD (TB) 2010-11-18 Completed University of 00:00:00 [facility] TDAP (ADACEL) 2010-11-18 Completed University of VACCINE 00:00:00 [facility] PPD (TB) 2010-11-18 Completed [facility] of 00:00:00 [facility] TDAP (ADACEL) 2010-11-18 Completed University of VACCINE 00:00:00 [facility] PPD (TB) 2010-11-18 Completed University of 00:00:00 [facility] TDAP (ADACEL) 2010-11-18 Completed University of VACCINE 00:00:00 [facility] PPD (TB) 2010-11-18 Completed [facility] of 00:00:00 [facility] TDAP (ADACEL) 2010-11-18 Completed University of VACCINE 00:00:00 [facility] PPD (TB) 2010-11-18 Completed [facility] of 00:00:00 [facility] TDAP (ADACEL) 2010-11-18 Completed University of VACCINE 00:00:00 [facility] PPD (TB) 2010-11-18 Completed [facility] of 00:00:00 [facility] TDAP (ADACEL) 2010-11-18 Completed University of VACCINE 00:00:00 [facility] PPD (TB) 2010-11-18 Completed University of 00:00:00 [facility] TDAP (ADACEL) 2010-11-18 Completed University of VACCINE 00:00:00 [facility] PPD (TB) 2010-11-18 Completed University of 00:00:00 [facility] TDAP (ADACEL) 2010-11-18 Completed University of VACCINE 00:00:00 [facility] PPD (TB) 2010-11-18 Completed [facility] of 00:00:00 [facility] TDAP (ADACEL) 2010-11-18 Completed University of VACCINE 00:00:00 [facility] PPD (TB) 2010-11-18 Completed [facility] of 00:00:00 [facility] TDAP (ADACEL) 2010-11-18 Completed University of VACCINE 00:00:00 [facility] PPD (TB) 2010-11-18 Completed [facility] of 00:00:00 [facility] TDAP (ADACEL) 2010-11-18 Completed University of VACCINE 00:00:00 [facility] PPD (TB) 2010-11-18 Completed [facility] of 00:00:00 [facility] TDAP (ADACEL) 2010-11-18 Completed University of VACCINE 00:00:00 [facility] HEPATITIS A 2004-03-02 Completed University of 00:00:00 [facility] HEPATITIS A 2004-03-02 Completed [facility] of 00:00:00 [facility] HEPATITIS A 2004-03-02 Completed University of 00:00:00 [facility] HEPATITIS A 2004-03-02 Completed [facility] of 00:00:00 [facility] HEPATITIS A 2004-03-02 Completed [facility] of 00:00:00 [facility] HEPATITIS A 2004-03-02 Completed [facility] of 00:00:00 [facility] HEPATITIS A 2004-03-02 Completed [facility] of 00:00:00 [facility] HEPATITIS A 2004-03-02 Completed [facility] of 00:00:00 [facility] HEPATITIS A 2004-03-02 Completed [facility] of 00:00:00 [facility] HEPATITIS A 2004-03-02 Completed [facility] of 00:00:00 [facility] HEPATITIS A 2004-03-02 Completed [facility] of 00:00:00 [facility] HEPATITIS A 2004-03-02 Completed [facility] of 00:00:00 [facility] HEPATITIS A 2004-03-02 Completed [facility] of 00:00:00 [facility] HEPATITIS A 2004-03-02 Completed [facility] of 00:00:00 [facility] HEPATITIS A 2004-03-02 Completed [facility] of 00:00:00 [facility] HEPATITIS A 2004-03-02 Completed [facility] of 00:00:00 [facility] HEPATITIS A 2004-03-02 Completed [facility] of 00:00:00 [facility] HEPATITIS A 2004-03-02 Completed [facility] of 00:00:00 [facility] HEPATITIS A 2004-03-02 Completed [facility] of 00:00:00 [facility] HEPATITIS A 2004-03-02 Completed [facility] of 00:00:00 [facility] HEPATITIS A 2004-03-02 Completed [facility] of 00:00:00 [facility] HEPATITIS A 2004-03-02 Completed [facility] of 00:00:00 [facility] HEPATITIS A 2003-08-01 Completed [facility] of 00:00:00 [facility] HEPATITIS A 2003-08-01 Completed [facility] of 00:00:00 [facility] HEPATITIS A 2003-08-01 Completed [facility] of 00:00:00 [facility] HEPATITIS A 2003-08-01 Completed [facility] of 00:00:00 [facility] HEPATITIS A 2003-08-01 Completed [facility] of 00:00:00 [facility] HEPATITIS A 2003-08-01 Completed [facility] of 00:00:00 [facility] HEPATITIS A 2003-08-01 Completed [facility] of 00:00:00 [facility] HEPATITIS A 2003-08-01 Completed [facility] of 00:00:00 [facility] HEPATITIS A 2003-08-01 Completed [facility] of 00:00:00 [facility] HEPATITIS A 2003-08-01 Completed [facility] of 00:00:00 [facility] HEPATITIS A 2003-08-01 Completed [facility] of 00:00:00 [facility] HEPATITIS A 2003-08-01 Completed [facility] of 00:00:00 [facility] HEPATITIS A 2003-08-01 Completed [facility] of 00:00:00 [facility] HEPATITIS A 2003-08-01 Completed [facility] of 00:00:00 [facility] HEPATITIS A 2003-08-01 Completed University of 00:00:00 [facility] HEPATITIS A 2003-08-01 Completed University of 00:00:00 [facility] HEPATITIS A 2003-08-01 Completed University of 00:00:00 [facility] HEPATITIS A 2003-08-01 Completed University of 00:00:00 [facility] HEPATITIS A 2003-08-01 Completed University of 00:00:00 [facility] HEPATITIS A 2003-08-01 Completed University of 00:00:00 [facility] HEPATITIS A 2003-08-01 Completed University of 00:00:00 [facility] HEPATITIS A 2003-08-01 Completed University of 00:00:00 [facility] Pneumococcal 2001-10-04 Completed University o f Polysaccharide, 00:00:00 [place] [facility] PPSV23 (PNEUMOVAX) Branch PPD (TB) 2001-10-04 Completed University of 00:00:00 [facility] Pneumococcal 2001-10-04 Completed University o f Polysaccharide, 00:00:00 [place] [facility] PPSV23 (PNEUMOVAX) Branch PPD (TB) 2001-10-04 Completed University of 00:00:00 [facility] Pneumococcal 2001-10-04 Completed University o f Polysaccharide, 00:00:00 [place] [facility] PPSV23 (PNEUMOVAX) Branch PPD (TB) 2001-10-04 Completed University of 00:00:00 [facility] Pneumococcal 2001-10-04 Completed University o f Polysaccharide, 00:00:00 [place] [facility] PPSV23 (PNEUMOVAX) Branch PPD (TB) 2001-10-04 Completed University of 00:00:00 [facility] Pneumococcal 2001-10-04 Completed University o f Polysaccharide, 00:00:00 [place] [facility] PPSV23 (PNEUMOVAX) Branch PPD (TB) 2001-10-04 Completed University of 00:00:00 [facility] Pneumococcal 2001-10-04 Completed University o f Polysaccharide, 00:00:00 [place] [facility] PPSV23 (PNEUMOVAX) Branch PPD (TB) 2001-10-04 Completed University of 00:00:00 [facility] Pneumococcal 2001-10-04 Completed University o f Polysaccharide, 00:00:00 [place] [facility] PPSV23 (PNEUMOVAX) Branch PPD (TB) 2001-10-04 Completed University of 00:00:00 [facility] Pneumococcal 2001-10-04 Completed University o f Polysaccharide, 00:00:00 [place] [facility] PPSV23 (PNEUMOVAX) Branch PPD (TB) 2001-10-04 Completed University of 00:00:00 [facility] Pneumococcal 2001-10-04 Completed University o f Polysaccharide, 00:00:00 [place] [facility] PPSV23 (PNEUMOVAX) Branch PPD (TB) 2001-10-04 Completed University of 00:00:00 [facility] Pneumococcal 2001-10-04 Completed University o f Polysaccharide, 00:00:00 [place] [facility] PPSV23 (PNEUMOVAX) Branch PPD (TB) 2001-10-04 Completed University of 00:00:00 [facility] Pneumococcal 2001-10-04 Completed University o f Polysaccharide, 00:00:00 [place] [facility] PPSV23 (PNEUMOVAX) Branch PPD (TB) 2001-10-04 Completed University of 00:00:00 [facility] Pneumococcal 2001-10-04 Completed University o f Polysaccharide, 00:00:00 [place] [facility] PPSV23 (PNEUMOVAX) Branch PPD (TB) 2001-10-04 Completed University of 00:00:00 [facility] Pneumococcal 2001-10-04 Completed University o f Polysaccharide, 00:00:00 [place] [facility] PPSV23 (PNEUMOVAX) Branch PPD (TB) 2001-10-04 Completed University of 00:00:00 [facility] Pneumococcal 2001-10-04 Completed University o f Polysaccharide, 00:00:00 [place] [facility] PPSV23 (PNEUMOVAX) Branch PPD (TB) 2001-10-04 Completed University of 00:00:00 [facility] Pneumococcal 2001-10-04 Completed University o f Polysaccharide, 00:00:00 [place] [facility] PPSV23 (PNEUMOVAX) Branch PPD (TB) 2001-10-04 Completed University of 00:00:00 [facility] Pneumococcal 2001-10-04 Completed University o f Polysaccharide, 00:00:00 [place] [facility] PPSV23 (PNEUMOVAX) Branch PPD (TB) 2001-10-04 Completed University of 00:00:00 [facility] Pneumococcal 2001-10-04 Completed University o f Polysaccharide, 00:00:00 [place] [facility] PPSV23 (PNEUMOVAX) Branch PPD (TB) 2001-10-04 Completed University of 00:00:00 [facility] Pneumococcal 2001-10-04 Completed University o f Polysaccharide, 00:00:00 [place] [facility] PPSV23 (PNEUMOVAX) Branch PPD (TB) 2001-10-04 Completed University of 00:00:00 [facility] Pneumococcal 2001-10-04 Completed University o f Polysaccharide, 00:00:00 [place] [facility] PPSV23 (PNEUMOVAX) Branch PPD (TB) 2001-10-04 Completed University of 00:00:00 [facility] Pneumococcal 2001-10-04 Completed University o f Polysaccharide, 00:00:00 [place] [facility] PPSV23 (PNEUMOVAX) Branch PPD (TB) 2001-10-04 Completed University of 00:00:00 [facility] Pneumococcal 2001-10-04 Completed University o f Polysaccharide, 00:00:00 [place] [facility] PPSV23 (PNEUMOVAX) Branch PPD (TB) 2001-10-04 Completed [facility] of 00:00:00 [place] [facility] Pneumococcal 2001-10-04 Completed [facility] o f Polysaccharide, 00:00:00 [facility] ical PPSV23 (PNEUMOVAX) Branch PPD (TB) 2001-10-04 Completed University 00:00:00 [facility] Vital Signs Vital Name Observation Time Observation Value Comments Source Systolic blood 2022-05-10 22:00:00 159 mm[Hg] Univer sity of pressure [facility] Diastolic blood 2022-05-10 22:00:00 87 mm[Hg] Unive rsity of pressure [facility] Heart rate 2022-05-10 22:00:00 56 /min Universi ty of [facility] Body temperature 2022-05-10 22:00:00 36.61 Amina Univ ersity of [facility] Respiratory rate 2022-05-10 22:00:00 17 /min Univ ersity of [facility] Oxygen saturation in 2022-05-10 22:00:00 98 /min University of Arterial blood by [facility] Pulse oximetry Branch Body weight 2022-05-10 16:29:00 78.926 kg Universi ty of [facility] BMI 2022-05-10 16:29:00 29.87 kg/m2 Universi ty of [facility] Systolic blood 2022-05-08 22:30:00 168 mm[Hg] Univer sity of pressure [place] [facility] [place] Diastolic blood 2022-05-08 22:30:00 85 mm[Hg] Unive rsity of pressure [facility] Heart rate 2022-05-08 22:30:00 68 /min Universi ty of [facility] Oxygen saturation in 2022-05-08 22:30:00 100 /min University of Arterial blood by [facility] porfirio Pulse oximetry Branch Body temperature 2022-05-08 22:22:00 35.89 Amina Univ ersity of [facility] Respiratory rate 2022-05-08 22:22:00 14 /min Univ ersity of [place] [facility] [place] Body weight 2022-05-08 22:22:00 78.926 kg Universi ty of [place] [facility] [place] BMI 2022-05-08 22:22:00 29.87 kg/m2 Universi ty of [facility] Systolic blood 2022-05-07 00:00:00 149 mm[Hg] [...] [facility] Pulse oximetry Branch Body temperature [...] cm Universi ty of [place] [facility] [place] Body weight 2022-03-05 15:18:00 74.707 kg [facility]i ty of [place] [facility] BMI 2022-03-05 15:18:00 28.27 kg/m2 Universi ty of [facility] Systolic blood 2022-02-16 21:41:00 169 mm[Hg] Univer sity of pressure [place] [facility] Diastolic blood 2022-02-16 21:41:00 86 mm[Hg] Unive rsity of pressure [facility] Heart rate 2022-02-16 21:41:00 51 /min Universi ty of [facility] Body temperature 2022-02-16 21:41:00 36.56 Amina Univ ersity of [facility] Respiratory rate 2022-02-16 21:41:00 17 /min Univ ersity of [facility] Oxygen saturation in 2022-02-16 21:41:00 98 /min University of Arterial blood by [facility] Pulse oximetry Branch Body height 2022-02-11 16:02:00 162.6 cm Universi ty of [place] [facility] [place] Body weight 2022-02-11 16:02:00 79.379 kg Universi ty of [facility] BMI 2022-02-11 16:02:00 30.04 kg/m2 Universi ty of [facility] Systolic blood 2021-11-20 13:47:00 165 mm[Hg] Univer sity of pressure [facility] Diastolic blood 2021-11-20 13:47:00 83 mm[Hg] Unive rsity of pressure [facility] Heart rate 2021-11-20 13:47:00 58 /min Universi ty of [facility] Body temperature 2021-11-20 13:42:00 36.39 Amina Univ ersity of [facility] Respiratory rate 2021-11-20 13:42:00 16 /min Univ ersity of [facility] Body height 2021-11-20 13:42:00 162.6 cm [facility]i ty of [place] [facility] Body weight 2021-11-20 13:42:00 84.369 kg [facility]i ty of [place] [facility] BMI 2021-11-20 13:42:00 31.93 kg/m2 Universi ty of [facility] Systolic blood 2021-07-14 15:18:00 142 [...] 2022-05-10 22:00:00 159 mm[Hg] Univer sity of [facility] Diastolic blood 2022-05-10 22:00:00 87 mm[Hg] Unive rsity of [facility] Heart rate 2022-05-10 22:00:00 56 /min Universi ty of [place] [facility] [place] Body temperature 2022-05-10 22:00:00 36.61 Amina Univ ersity of [facility] Respiratory rate 2022-05-10 22:00:00 17 /min [facility] Oxygen saturation in 2022-05-10 22:00:00 98 /min University Arterial blood by [facility] Pulse oximetry Branch Body weight 2022-05-10 16:29:00 78.926 kg Universi ty of [place] [facility] BMI 2022-05-10 16:29:00 29.87 kg/m2 [facility] ty [facility] [place] [facility] Body height 2022-05-06 20:12:00 162.6 cm Universi ty of [facility] Systolic blood 2022-03-05 15:23:00 167 mm[Hg] Univer sity of pressure [facility] Diastolic blood 2022-03-05 15:23:00 105 mm[Hg] Unive rsity of pressure [facility] Heart rate 2022-03-05 15:23:00 49 /min Universi ty of [facility] Body temperature 2022-03-05 15:18:[address] [facility] Respiratory rate 2022-03-05 15:18:00 18 /min [facility] Body height 2022-03-05 15:18:00 162.6 cm [facility] Body weight 2022-03-05 15:18:00 74.707 kg [facility] BMI 2022-03-05 15:18:00 28.27 kg/m2 [facility] Oxygen saturation in 2022-02-16 21:41:00 98 /min [facility] Arterial blood by [facility] Pulse oximetry Branch Systolic blood 2020-12-08 15:48:00 125 mm[Hg] [facility] pressure Diastolic blood 2020-12-08 15:48:00 76 mm[Hg] [facility] pressure Heart rate 2020-12-08 15:48:00 64 /min [facility] Body temperature 2020-12-08 15:48:00 36.61 Amina [facility] Respiratory rate 2020-12-08 15:48:00 17 /min [facility] Body height 2020-12-08 15:48:00 162.6 cm [facility] Body weight 2020-12-08 15:48:00 98.884 kg [facility] BMI 2020-12-08 15:48:00 37.42 kg/m2 [facility] Oxygen saturation in 2020-12-08 15:48:00 97 /min [facility] Arterial blood by Pulse oximetry Respitory Rate 2020-08-30 13:00:00 Memori al [facility] Systolic (mm Hg) 2020-08-30 13:00:00 Caesar rial [place] Diastolic (mm Hg) 2020-08-30 13:00:00 Mem orial [place] Systolic (mm Hg) 2020-08-30 11:00:00 Caesar rial [place] Diastolic (mm Hg) 2020-08-30 11:00:00 Mem orial Amrty Temperature Oral (F) 2020-08-30 11:00:00 98.4 F [facility] Respitory Rate 2020-08-30 11:00:00 [facility] Respitory Rate 2020-08-30 10:00:00 Mem[facility] al [facility] Systolic (mm Hg) 2020-08-30 10:00:00 Caesar riamabel [facility] Diastolic (mm Hg) 2020-08-30 10:00:00 Mem orial Marty Temperature Oral (F) 2020-08-30 00:00:00 96.9 F [facility] Temperature Oral (F) 2020-08-29 11:26:00 97.6 F [facility] Height 2020-08-29 10:30:00 162.56 cm [facility] Weight 2020-08-29 10:30:00 [facility] BMI Calculated 2020-08-29 10:30:00 Memori al [facility] Procedures Procedure Date / Time Performing Clinician Source Performed URINALYSIS 2022-05-10 19:36:00 Home Matthews [facility] TROPONIN I 2022-05-10 18:34:00 Home Matthews [facility] COMP. METABOLIC PANEL 2022-05-10 18:34:00 Home Matthews [facility] ([id number]) [facility] CBC WITH DIFF 2022-05-10 18:34:00 Home Matthews [facility] XR CHEST 2 VW 2022-05-10 17:24:58 Home Matthews [facility] CONSENT/REFUSAL FOR 2022-05-10 16:26:23 [facility] DIAGNOSIS AND TREATMENT [place] [facility] CONSENT/REFUSAL FOR 2022-05-10 16:26:09 Doctor Unassigned, [facility] DIAGNOSIS AND TREATMENT [place] [facility] URINALYSIS 2022-05-08 22:43:00 Theresa Hickman [facility] XR CHEST 2 VW 2022-05-06 22:56:53 Anette Olea [facility] COMP. METABOLIC PANEL 2022-05-06 22:14:00 Anette Olea [facility] ([id number]) [facility] CBC WITH DIFF 2022-05-06 22:14:00 Anette Olea [facility] COVID-19 (ID NOW RAPID 2022-05-06 22:14:00 Anette Olea [facility] TESTING) [facility] [place] BASIC METABOLIC PANEL (NA, 2022-04-22 21:23:00 Paulette Gray [facility] K, CL, CO2, GLUCOSE, BUN, Medica l Branch CREATININE, [place]) CBC WITH DIFF 2022-04-22 21:23:00 Paulette Gray [facility] CONSENT/REFUSAL FOR 2022-04-22 19:45:46 Doctor Unassigned, [facility] DIAGNOSIS AND TREATMENT [place] [facility] SARS-COV-2 COVID-19 2022-03-05 16:09:27 [facility] DIMITRIS-SUCROSE VACCINE [address] [place] [address] YRS+, BIVALENT 0.3ML, IM, (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) FLU 2022-03-05 16:09:27 [facility] VACC(),65+YR,0.5 Medica l Branch ML,IM,ADJUVANTED,QUAD(FLUA D) FLU 2022-03-05 16:09:27 [facility] VACC(),65+YR,0.5 Medica l Branch ML,IM,ADJUVANTED,QUAD(FLUA D) SARS-COV-2 COVID-19 2022-03-05 16:09:27 [facility] DIMITRIS-SUCROSE VACCINE [address] [place] [address] YRS+, BIVALENT 0.3ML, IM, (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) MAGNESIUM 2022-02-15 09:41:00 Sofia Garcia [facility] BASIC METABOLIC PANEL (NA, 2022-02-15 09:41:00 Sofia Garcia [facility] K, CL, CO2, GLUCOSE, BUN, Medica l Branch CREATININE, CA) CBC WITH DIFF 2022-02-15 09:41:00 Sofia Garcia [facility] N-TERMINAL PRO-BNP 2022-02-15 09:41:00 Sofia Garcia [facility] CBC WITH DIFF 2022-02-15 09:41:00 Sofia Garcia [facility] BASIC METABOLIC PANEL (NA, 2022-02-15 09:41:00 Sofia Garcia [facility] K, CL, CO2, GLUCOSE, BUN, Medica l Branch CREATININE, CA) MAGNESIUM 2022-02-15 09:41:00 Sofia Garcia [facility] N-TERMINAL PRO-BNP 2022-02-15 09:41:00 Sofia Garcia [facility] BASIC METABOLIC PANEL (NA, 2022-02-13 09:40:00 [facility], CO2, GLUCOSE, BUN, Medica l Branch CREATININE, CA) CBC WITH DIFF 2022-02-13 09:40:00 Sofia Garcia [facility] BASIC METABOLIC PANEL (NA, 2022-02-13 09:40:00 Radha [facility] K, CL, CO2, GLUCOSE, BUN, Medica l Branch CREATININE, CA) CBC WITH DIFF 2022-02-13 09:40:00 Radha [facility] TROPONIN I 2022-02-11 23:41:00 Radha [facility] N-TERMINAL PRO-BNP 2022-02-11 23:41:00 Sofia Garcia [facility] TROPONIN I 2022-02-11 23:41:00 Radha [facility] N-TERMINAL PRO-BNP 2022-02-11 23:41:00 Sofia Garcia [facility] HB ECG ROUTINE & RHYTHM 2022-02-11 22:15:36 Sofia Garcia [facility] TRANSTHORACIC ECHO (TTE) 2022-02-11 21:26:50 [facility] 2022-02-11 21:26:50 [facility]EL[facility] W 2022-02-11 07:45:43 Reilly Means [facility] CT ABDOMEN PELVIS W 2022-02-11 07:45:43 Reilly Means [facility] RAPID INFLUENZA A/B 2022-02-11 06:54:00 Reilly Means [facility] RAPID INFLUENZA A/B 2022-02-11 06:54:00 Reilly Means [facility] URINALYSIS 2022-02-11 06:45:00 Reilly Means [facility] URINE CULTURE 2022-02-11 06:45:00 Reilly Means [facility] URINALYSIS 2022-02-11 06:45:00 Reilly Means [facility] URINE CULTURE 2022-02-11 06:45:00 Reilly Means [facility] HB ECG ROUTINE & RHYTHM 2022-02-11 05:22:08 Reilly Menas [facility] HB ECG ROUTINE & RHYTHM 2022-02-11 05:22:08 Reilly Means [facility] BLOOD CULTURE SCREEN 2022-02-11 04:58:00 Reilly Means [facility] TROPONIN I 2022-02-11 04:58:00 Reilly Means [facility] COMP. METABOLIC PANEL 2022-02-11 04:58:00 Reilly Means [facility] ([id number]) Medical Branch CBC WITH DIFF 2022-02-11 04:58:00 Reilly Means [facility] PROTHROMBIN TIME / INR 2022-02-11 04:58:00 Reilly Means [facility] ACTIVATED PARTIAL THRMPLAS 2022-02-11 04:58:00 Reilly Means [facility] N-TERMINAL PRO-BNP 2022-02-11 04:58:00 Reilly Means [facility] LACTIC ACID WHOLE BLOOD 2022-02-11 04:58:[address] [facility] COVID-19 (ID NOW RAPID 2022-02-11 04:58:00 Reilly Means [facility] TESTING) Medical Branch LAB ONLY COVID 2022-02-11 04:58:00 Reilly Means [facility] CBC WITH DIFF 2022-02-11 04:58:00 Reilly Means [facility] ACTIVATED PARTIAL THRMPLAS 2022-02-11 04:58:00 Reilly Means [facility] PROTHROMBIN TIME / INR 2022-02-11 04:58:00 Reilly Means [facility] COVID-19 (ID NOW RAPID 2022-02-11 04:58:00 Reilly Means [facility] TESTING) Medical Branch COMP. METABOLIC PANEL 2022-02-11 04:58:00 Reilly Means [facility] ([id number]) [facility] [place] TROPONIN I 2022-02-11 04:58:00 Miguelangel Reilly [facility] N-TERMINAL PRO-BNP 2022-02-11 04:58:00 Reilly Means [facility] BLOOD CULTURE SCREEN 2022-02-11 04:58:00 Reilly Means [facility] LACTIC ACID WHOLE BLOOD 2022-02-11 04:58:[address] [facility] LAB ONLY COVID 2022-02-11 04:58:00 Reilly Means [facility] INTERPRETATION [facility] XR CHEST 1 VW 2022-02-11 04:27:42 Miguelangel Reilly [facility] XR CHEST 1 2022-02-11 04:27:42 Miguelangel Reilly [facility] HOSPITAL ADMISSION 2022-02-10 05:01:00 Doctor Unassigned, [facility] [place] [facility] HOSPITAL ADMISSION 2022-02-10 05:01:00 Doctor Unassigned, [facility] Name [facility] ECG 12-LEAD 2021-07-14 15:14:00 Elan Lira [facility] [id number] 2021-06-17 00:00:00 RASSA [facility] GASTROINTESTINAL PANEL 2020-12-08 22:21:00 Eliseo Arce [facility] XR ABDOMEN 1 2020-12-08 18:06:32 Eliseo Arce spital OR [place] < 1 HOUR 2020-09-05 22:39:00 Eliseo Arce spital SURGICAL PATHOLOGY REQUEST 2020-09-05 21:54:00 Eliseo Arce [facility] XR CHEST 1 PORTABLE 2020-09-05 19:55:[address] [facility] DISCHARGE PATIENT 2020-09-05 17:27:55 Lucas Harris [facility] ND AN ELECTIVE 2020-09-05 16:47:[address] ENDOTRACHEAL AIRWAY EGD, INTRAOPERATIVE 2020-09-05 16:27:00 Eliseo Arce [facility] PARTIAL THROMBOPLASTIN 2020-09-05 15:04:00 Sarai Maharaj [facility] TIME (PTT) M. PROTHROMBIN TIME WITH INR 2020-09-05 15:04:00 Mindy Maharaj [facility] M. Plan of Care Planned Activity Planned Date Details Comments Source Future Scheduled 2022-11-11 Screening for [facility] Test 09:27:47 malignant neoplasm of colon (procedure) [code = 211230161] Future Scheduled 2022-11-11 Screening for [facility] Test 09:27:47 malignant neoplasm of colon (procedure) [code = 186940313] Future Scheduled 2022-11-11 Screening for [facility] Test 09:27:47 malignant neoplasm of colon (procedure) [code = 834156320] Future Scheduled 2022-11-11 SHINGLES VACCINES (1 Met [facility] Test 09:27:47 of 2) [code = SHINGLES VACCINES (1 of 2)] Future Scheduled 2022-11-11 BREAST CANCER [facility] Test 09:27:47 SCREENING [code = BREAST CANCER SCREENING] Future Scheduled 2022-11-11 Screening for [facility] Test 09:27:47 malignant neoplasm of colon (procedure) [code = 640774756] Future Scheduled 2022-11-11 Screening for [facility] Test 09:27:47 malignant neoplasm of colon (procedure) [code = 509668534] Future Scheduled 2022-11-11 HEPATITIS B VACCINES Met [facility] Test 09:27:47 (1 of 3 - Risk 3-dose series) [code = HEPATITIS B VACCINES (1 of 3 - Risk 3-dose series)] Future Scheduled 2022-11-11 COVID-19 VACCINE (3 - Me [facility] Test 09:27:47 Pfizer series) [code = COVID-19 VACCINE (3 - Pfizer series)] Future Scheduled 2022-11-11 65+ PNEUMOCOCCAL [facility] Test 09:27:47 VACCINE (4 - PPSV23 if available, else PCV20) [code = 65+ PNEUMOCOCCAL VACCINE (4 - PPSV23 if available, else PCV20)] Future Scheduled 2022-11-11 INFLUENZA VACCINE Method [facility] Test 09:27:47 [code = INFLUENZA VACCINE] Future Scheduled 2022-10-27 Screening for [facility] Test 22:40:19 malignant neoplasm of colon (procedure) [code = 768074097] Future Scheduled 2022-10-27 Screening for [facility] Test 22:40:19 malignant neoplasm of colon (procedure) [code = 641748658] Future Scheduled 2022-10-27 Screening for [facility] Test 22:40:19 malignant neoplasm of colon (procedure) [code = 463009728] Future Scheduled 2022-10-27 SHINGLES VACCINES (1 Met [facility] Test 22:40:19 of 2) [code = SHINGLES VACCINES (1 of 2)] Future Scheduled 2022-10-27 BREAST CANCER [facility] Test 22:40:19 SCREENING [code = BREAST CANCER SCREENING] Future Scheduled 2022-10-27 Screening for [facility] Test 22:40:19 malignant neoplasm of colon (procedure) [code = 503564256] Future Scheduled 2022-10-27 Screening for [facility] Test 22:40:19 malignant neoplasm of colon (procedure) [code = 958068414] Future Scheduled 2022-10-27 HEPATITIS B VACCINES Met [facility] Test 22:40:19 (1 of 3 - Risk 3-dose series) [code = HEPATITIS B VACCINES (1 of 3 - Risk 3-dose series)] Future Scheduled 2022-10-27 COVID-19 VACCINE (3 - Me [facility] Test 22:40:19 Pfizer series) [code = COVID-19 VACCINE (3 - Pfizer series)] Future Scheduled 2022-10-27 65+ [facility] 22:40:19 VACCINE (4 - PPSV23 if available, else PCV20) [code = 65+ PNEUMOCOCCAL VACCINE (4 - PPSV23 if available, else PCV20)] Future Scheduled 2022-10-27 INFLUENZA VACCINE Method [facility] Test 22:40:19 [code = INFLUENZA VACCINE] Future Scheduled 2022-10-27 Screening for [facility] Test 22:40:19 malignant neoplasm of colon (procedure) [code = 897877998] Future Scheduled 2022-10-27 Screening for [facility] Test 22:40:19 malignant neoplasm of colon (procedure) [code = 108665572] Future Scheduled 2022-10-27 Screening for [facility] Test 22:40:19 malignant neoplasm of colon (procedure) [code = 281032640] Future Scheduled 2022-10-27 SHINGLES VACCINES (1 Met [facility] Test 22:40:19 of 2) [code = SHINGLES VACCINES (1 of 2)] Future Scheduled 2022-10-27 BREAST CANCER [facility] Test 22:40:19 SCREENING [code = BREAST CANCER SCREENING] Future Scheduled 2022-10-27 Screening for [facility] Test 22:40:19 malignant neoplasm of colon (procedure) [code = [id number]] Future Scheduled 2022-10-27 Screening for [facility] Test 22:40:19 malignant neoplasm of colon (procedure) [code = [id number]] Future Scheduled 2022-10-27 HEPATITIS B VACCINES Met [facility] Test 22:40:19 (1 of 3 - Risk 3-dose series) [code = HEPATITIS B VACCINES (1 of 3 - Risk 3-dose series)] Future Scheduled 2022-10-27 COVID-19 VACCINE (3 - [facility] Test 22:40:19 Pfizer series) [code = COVID-19 VACCINE (3 - Pfizer series)] Future Scheduled 2022-10-27 65+ PNEUMOCOCCAL [facility] Test 22:40:19 VACCINE (4 - PPSV23 if available, else PCV20) [code = 65+ PNEUMOCOCCAL VACCINE (4 - PPSV23 if available, else PCV20)] Future Scheduled 2022-10-27 INFLUENZA VACCINE Method [facility] Test 22:40:19 [code = INFLUENZA VACCINE] Future Scheduled 2022-09-10 SHINGLES VACCINES (1 [facility] Test 15:06:53 of 2) [code = SHINGLES VACCINES (1 of 2)] Future Scheduled 2022-09-10 BREAST CANCER [facility] Test 15:06:53 SCREENING [code = BREAST CANCER SCREENING] Future Scheduled 2022-09-10 COLONOSCOPY SCREENING [facility] Test 15:06:53 [code = COLONOSCOPY SCREENING] Future Scheduled 2022-09-10 HEPATITIS B VACCINES [facility] Test 15:06:53 (1 of 3 - Risk 3-dose series) [code = HEPATITIS B VACCINES (1 of 3 - Risk 3-dose series)] Future Scheduled 2022-09-10 COVID-19 VACCINE (3 - Me [facility] Test 15:06:53 Booster for Pfizer series) [code = COVID-19 VACCINE (3 - Booster for Pfizer series)] Future Scheduled 2022-09-10 65[facility] VACCINE (4 - PPSV23 if available, else PCV20) [code = 65+ PNEUMOCOCCAL VACCINE (4 - PPSV23 if available, else PCV20)] Future Scheduled 2022-09-10 INFLUENZA VACCINE Method [facility] Test 15:06:53 [code = INFLUENZA VACCINE] Future Scheduled 2022-09-10 SHINGLES VACCINES (1 [facility] Test 15:06:53 of 2) [code = SHINGLES VACCINES (1 of 2)] Future Scheduled 2022-09-10 BREAST CANCER [facility] Test 15:06:53 SCREENING [code = BREAST CANCER SCREENING] Future Scheduled 2022-09-10 COLONOSCOPY SCREENING [facility] Test 15:06:53 [code = COLONOSCOPY SCREENING] Future Scheduled 2022-09-10 HEPATITIS B VACCINES [facility] Test 15:06:53 (1 of 3 - Risk 3-dose series) [code = HEPATITIS B VACCINES (1 of 3 - Risk 3-dose series)] Future Scheduled 2022-09-10 COVID-19 VACCINE (3 - Me [facility] Test 15:06:53 Booster for Pfizer series) [code = COVID-19 VACCINE (3 - Booster for Pfizer series)] Future Scheduled 2022-09-10 65+ PNEUMOCOCCAL [facility] Test 15:06:53 VACCINE (4 - PPSV23 if available, else PCV20) [code = 65+ PNEUMOCOCCAL VACCINE (4 - PPSV23 if available, else PCV20)] Future Scheduled 2022-09-10 INFLUENZA VACCINE Method [facility] Test 15:06:53 [code = INFLUENZA VACCINE] Future Scheduled 2022-09-10 SHINGLES VACCINES (1 Met [facility] Test 15:06:53 of 2) [code = SHINGLES VACCINES (1 of 2)] Future Scheduled 2022-09-10 BREAST CANCER [facility] Test 15:06:53 SCREENING [code = BREAST CANCER SCREENING] Future Scheduled 2022-09-10 COLONOSCOPY SCREENING [facility] Test 15:06:53 [code = COLONOSCOPY SCREENING] Future Scheduled 2022-09-10 HEPATITIS B VACCINES [facility] Test 15:06:53 (1 of 3 - Risk 3-dose series) [code = HEPATITIS B VACCINES (1 of 3 - Risk 3-dose series)] Future Scheduled 2022-09-10 COVID-19 VACCINE (3 - [facility] Test 15:06:53 Booster for Pfizer series) [code = COVID-19 VACCINE (3 - Booster for Pfizer series)] Future Scheduled 2022-09-10 65+ PNEUMOCOCCAL [facility] Test 15:06:53 VACCINE (4 - PPSV23 if available, else PCV20) [code = 65+ PNEUMOCOCCAL VACCINE (4 - PPSV23 if available, else PCV20)] Future Scheduled 2022-09-10 INFLUENZA VACCINE Method [facility] Test 15:06:53 [code = INFLUENZA VACCINE] Future Scheduled 2022-09-10 SHINGLES VACCINES (1 Met [facility] Test 15:06:53 of 2) [code = SHINGLES VACCINES (1 of 2)] Future Scheduled 2022-09-10 BREAST CANCER [facility] Test 15:06:53 SCREENING [code = BREAST CANCER SCREENING] Future Scheduled 2022-09-10 COLONOSCOPY SCREENING [facility] Test 15:06:53 [code = COLONOSCOPY SCREENING] Future Scheduled 2022-09-10 HEPATITIS B VACCINES [facility] Test 15:06:53 (1 of 3 - Risk 3-dose series) [code = HEPATITIS B VACCINES (1 of 3 - Risk 3-dose series)] Future Scheduled 2022-09-10 COVID-19 VACCINE (3 - [facility] Test 15:06:53 Booster for Pfizer series) [code = COVID-19 VACCINE (3 - Booster for Pfizer series)] Future Scheduled 2022-09-10 65[facility] VACCINE (4 - PPSV23 if available, else PCV20) [code = 65+ PNEUMOCOCCAL VACCINE (4 - PPSV23 if available, else PCV20)] Future Scheduled 2022-09-10 INFLUENZA VACCINE Method [facility] Test 15:06:53 [code = INFLUENZA VACCINE] Future Scheduled 2022-09-10 SHINGLES VACCINES (1 Met [facility] Test 15:06:53 of 2) [code = SHINGLES VACCINES (1 of 2)] Future Scheduled 2022-09-10 BREAST CANCER [facility] Test 15:06:53 SCREENING [code = BREAST CANCER SCREENING] Future Scheduled 2022-09-10 COLONOSCOPY SCREENING [facility] Test 15:06:53 [code = COLONOSCOPY SCREENING] Future Scheduled 2022-09-10 HEPATITIS B VACCINES [facility] Test 15:06:53 (1 of 3 - Risk 3-dose series) [code = HEPATITIS B VACCINES (1 of 3 - Risk 3-dose series)] Future Scheduled 2022-09-10 COVID-19 VACCINE (3 - Me [facility] Test 15:06:53 Booster for Pfizer series) [code = COVID-19 VACCINE (3 - Booster for Pfizer series)] Future Scheduled 2022-09-10 65[facility] VACCINE (4 - PPSV23 if available, else PCV20) [code = 65+ PNEUMOCOCCAL VACCINE (4 - PPSV23 if available, else PCV20)] Future Scheduled 2022-09-10 INFLUENZA VACCINE Method [facility] Test 15:06:53 [code = INFLUENZA VACCINE] Future Scheduled 2022-09-10 SHINGLES VACCINES (1 Met [facility] Test 15:06:53 of 2) [code = SHINGLES VACCINES (1 of 2)] Future Scheduled 2022-09-10 BREAST CANCER [facility] Test 15:06:53 SCREENING [code = BREAST CANCER SCREENING] Future Scheduled 2022-09-10 COLONOSCOPY SCREENING [facility] Test 15:06:53 [code = COLONOSCOPY SCREENING] Future Scheduled 2022-09-10 HEPATITIS B VACCINES [facility] Test 15:06:53 (1 of 3 - Risk 3-dose series) [code = HEPATITIS B VACCINES (1 of 3 - Risk 3-dose series)] Future Scheduled 2022-09-10 COVID-19 VACCINE (3 - Me [facility] Test 15:06:53 Booster for Pfizer series) [code = COVID-19 VACCINE (3 - Booster for Pfizer series)] Future Scheduled 2022-09-10 65+ [facility] 15:06:53 VACCINE (4 - PPSV23 if available, else PCV20) [code = 65+ PNEUMOCOCCAL VACCINE (4 - PPSV23 if available, else PCV20)] Future Scheduled 2022-09-10 INFLUENZA VACCINE Method [facility] Test 15:06:53 [code = INFLUENZA VACCINE] Future Scheduled 2022-09-10 SHINGLES VACCINES (1 Met [facility] Test 15:06:53 of 2) [code = SHINGLES VACCINES (1 of 2)] Future Scheduled 2022-09-10 BREAST CANCER [facility] Test 15:06:53 SCREENING [code = BREAST CANCER SCREENING] Future Scheduled 2022-09-10 COLONOSCOPY SCREENING [facility] Test 15:06:53 [code = COLONOSCOPY SCREENING] Future Scheduled 2022-09-10 HEPATITIS B VACCINES [facility] Test 15:06:53 (1 of 3 - Risk 3-dose series) [code = HEPATITIS B VACCINES (1 of 3 - Risk 3-dose series)] Future Scheduled 2022-09-10 COVID-19 VACCINE (3 - Me [facility] Test 15:06:53 Booster for Pfizer series) [code = COVID-19 VACCINE (3 - Booster for Pfizer series)] Future Scheduled 2022-09-10 65[facility] VACCINE (4 - PPSV23 if available, else PCV20) [code = 65+ PNEUMOCOCCAL VACCINE (4 - PPSV23 if available, else PCV20)] Future Scheduled 2022-09-10 INFLUENZA VACCINE Method [facility] Test 15:06:53 [code = INFLUENZA VACCINE] Future Scheduled 2022-09-10 SHINGLES VACCINES (1 Met [facility] Test 15:06:53 of 2) [code = SHINGLES VACCINES (1 of 2)] Future Scheduled 2022-09-10 BREAST CANCER [facility] Test 15:06:53 SCREENING [code = BREAST CANCER SCREENING] Future Scheduled 2022-09-10 COLONOSCOPY SCREENING [facility] Test 15:06:53 [code = COLONOSCOPY SCREENING] Future Scheduled 2022-09-10 HEPATITIS B VACCINES [facility] Test 15:06:53 (1 of 3 - Risk 3-dose series) [code = HEPATITIS B VACCINES (1 of 3 - Risk 3-dose series)] Future Scheduled 2022-09-10 COVID-19 VACCINE (3 - Me [facility] Test 15:06:53 Booster for Pfizer series) [code = COVID-19 VACCINE (3 - Booster for Pfizer series)] Future Scheduled 2022-09-10 65+ [facility] 15:06:53 VACCINE (4 - PPSV23 if available, else PCV20) [code = 65+ PNEUMOCOCCAL VACCINE (4 - PPSV23 if available, else PCV20)] Future Scheduled 2022-09-10 INFLUENZA VACCINE Method [facility] Test 15:06:53 [code = INFLUENZA VACCINE] Future Scheduled 2022-08-26 SHINGLES VACCINES (1 Met [facility] Test 14:43:48 of 2) [code = SHINGLES VACCINES (1 of 2)] Future Scheduled 2022-08-26 BREAST CANCER [facility] Test 14:43:48 SCREENING [code = BREAST CANCER SCREENING] Future Scheduled 2022-08-26 COLONOSCOPY SCREENING [facility] Test 14:43:48 [code = COLONOSCOPY SCREENING] Future Scheduled 2022-08-26 HEPATITIS B VACCINES [facility] Test 14:43:48 (1 of 3 - Risk 3-dose series) [code = HEPATITIS B VACCINES (1 of 3 - Risk 3-dose series)] Future Scheduled 2022-08-26 COVID-19 VACCINE (3 - [facility] Test 14:43:48 Booster for Pfizer series) [code = COVID-19 VACCINE (3 - Booster for Pfizer series)] Future Scheduled 2022-08-26 65+ [facility] 14:43:48 VACCINE (4 - PPSV23 if available, else PCV20) [code = 65+ PNEUMOCOCCAL VACCINE (4 - PPSV23 if available, else PCV20)] Future Scheduled 2022-08-26 INFLUENZA VACCINE Method [facility] Test 14:43:48 [code = INFLUENZA VACCINE] Future Scheduled 2022-08-07 SHINGLES VACCINES (1 Met [facility] Test 23:30:11 of 2) [code = SHINGLES VACCINES (1 of 2)] Future Scheduled 2022-08-07 BREAST CANCER [facility] Test 23:30:11 SCREENING [code = BREAST CANCER SCREENING] Future Scheduled 2022-08-07 COLONOSCOPY SCREENING [facility] Test 23:30:11 [code = COLONOSCOPY SCREENING] Future Scheduled 2022-08-07 HEPATITIS B VACCINES [facility] Test 23:30:11 (1 of 3 - Risk 3-dose series) [code = HEPATITIS B VACCINES (1 of 3 - Risk 3-dose series)] Future Scheduled 2022-08-07 COVID-19 VACCINE (3 - Me [facility] Test 23:30:11 Booster for Pfizer series) [code = COVID-19 VACCINE (3 - Booster for Pfizer series)] Future Scheduled 2022-08-07 65+ PNEUMOCOCCAL [facility] Test 23:30:11 VACCINE (4 - PPSV23 if available, else PCV20) [code = 65+ PNEUMOCOCCAL VACCINE (4 - PPSV23 if available, else PCV20)] Future Scheduled 2022-08-07 INFLUENZA VACCINE Method [facility] Test 23:30:11 [code = INFLUENZA VACCINE] Future Scheduled 2022-08-07 SHINGLES VACCINES (1 Met [facility] Test 23:30:11 of 2) [code = SHINGLES VACCINES (1 of 2)] Future Scheduled 2022-08-07 BREAST CANCER [facility] Test 23:30:11 SCREENING [code = BREAST CANCER SCREENING] Future Scheduled 2022-08-07 COLONOSCOPY SCREENING [facility] Test 23:30:11 [code = COLONOSCOPY SCREENING] Future Scheduled 2022-08-07 HEPATITIS B VACCINES [facility] Test 23:30:11 (1 of 3 - Risk 3-dose series) [code = HEPATITIS B VACCINES (1 of 3 - Risk 3-dose series)] Future Scheduled 2022-08-07 COVID-19 VACCINE (3 - Me [facility] Test 23:30:11 Booster for Pfizer series) [code = COVID-19 VACCINE (3 - Booster for Pfizer series)] Future Scheduled 2022-08-07 65+ PNEUMOCOCCAL [facility] Test 23:30:11 VACCINE (4 - PPSV23 if available, else PCV20) [code = 65+ PNEUMOCOCCAL VACCINE (4 - PPSV23 if available, else PCV20)] Future Scheduled 2022-08-07 INFLUENZA VACCINE Method [facility] Test 23:30:11 [code = INFLUENZA VACCINE] Future Scheduled 2022-08-06 SHINGLES VACCINES (1 Met [facility] Test 15:48:02 of 2) [code = SHINGLES VACCINES (1 of 2)] Future Scheduled 2022-08-06 BREAST CANCER [facility] Test 15:48:02 SCREENING [code = BREAST CANCER SCREENING] Future Scheduled 2022-08-06 COLONOSCOPY SCREENING [facility] Test 15:48:02 [code = COLONOSCOPY SCREENING] Future Scheduled 2022-08-06 HEPATITIS B VACCINES [facility] Test 15:48:02 (1 of 3 - Risk 3-dose series) [code = HEPATITIS B VACCINES (1 of 3 - Risk 3-dose series)] Future Scheduled 2022-08-06 COVID-19 VACCINE (3 - Me [facility] Test 15:48:02 Booster for Pfizer series) [code = COVID-19 VACCINE (3 - Booster for Pfizer series)] Future Scheduled 2022-08-06 65+ [facility] 15:48:02 VACCINE (4 - PPSV23 if available, else PCV20) [code = 65+ PNEUMOCOCCAL VACCINE (4 - PPSV23 if available, else PCV20)] Future Scheduled 2022-08-06 INFLUENZA VACCINE Method [facility] Test 15:48:02 [code = INFLUENZA VACCINE] Future Scheduled 2022-06-11 SHINGLES VACCINES (1 Met [facility] Test 16:10:12 of 2) [code = SHINGLES VACCINES (1 of 2)] Future Scheduled 2022-06-11 BREAST CANCER [facility] Test 16:10:12 SCREENING [code = BREAST CANCER SCREENING] Future Scheduled 2022-06-11 COLONOSCOPY SCREENING [facility] Test 16:10:12 [code = COLONOSCOPY SCREENING] Future Scheduled 2022-06-11 HEPATITIS B VACCINES [facility] Test 16:10:12 (1 of 3 - Risk 3-dose series) [code = HEPATITIS B VACCINES (1 of 3 - Risk 3-dose series)] Future Scheduled 2022-06-11 COVID-19 VACCINE (3 - [facility] Test 16:10:12 Booster for Pfizer series) [code = COVID-19 VACCINE (3 - Booster for Pfizer series)] Future Scheduled 2022-06-11 65+ [facility] 16:10:12 VACCINE (4 - PPSV23 if available, else PCV20) [code = 65+ PNEUMOCOCCAL VACCINE (4 - PPSV23 if available, else PCV20)] Future Scheduled 2022-06-11 INFLUENZA VACCINE Method [facility] Test 16:10:12 [code = INFLUENZA VACCINE] Future Scheduled 2022-06-11 SHINGLES VACCINES (1 Met [facility] Test 16:10:12 of 2) [code = SHINGLES VACCINES (1 of 2)] Future Scheduled 2022-06-11 BREAST CANCER [facility] Test 16:10:12 SCREENING [code = BREAST CANCER SCREENING] Future Scheduled 2022-06-11 COLONOSCOPY SCREENING [facility] Test 16:10:12 [code = COLONOSCOPY SCREENING] Future Scheduled 2022-06-11 HEPATITIS B VACCINES [facility] Test 16:10:12 (1 of 3 - Risk 3-dose series) [code = HEPATITIS B VACCINES (1 of 3 - Risk 3-dose series)] Future Scheduled 2022-06-11 COVID-19 VACCINE (3 - Me [facility] Test 16:10:12 Booster for Pfizer series) [code = COVID-19 VACCINE (3 - Booster for Pfizer series)] Future Scheduled 2022-06-11 65+ [facility] 16:10:12 VACCINE (4 - PPSV23 if available, else PCV20) [code = 65+ PNEUMOCOCCAL VACCINE (4 - PPSV23 if available, else PCV20)] Future Scheduled 2022-06-11 INFLUENZA VACCINE Method [facility] Test 16:10:12 [code = INFLUENZA VACCINE] Future Scheduled 2022-06-11 SHINGLES VACCINES (1 Met [facility] Test 16:10:12 of 2) [code = SHINGLES VACCINES (1 of 2)] Future Scheduled 2022-06-11 BREAST CANCER [facility] Test 16:10:12 SCREENING [code = BREAST CANCER SCREENING] Future Scheduled 2022-06-11 COLONOSCOPY SCREENING [facility] Test 16:10:12 [code = COLONOSCOPY SCREENING] Future Scheduled 2022-06-11 HEPATITIS B VACCINES [facility] Test 16:10:12 (1 of 3 - Risk 3-dose series) [code = HEPATITIS B VACCINES (1 of 3 - Risk 3-dose series)] Future Scheduled 2022-06-11 COVID-19 VACCINE (3 - Me [facility] Test 16:10:12 Booster for Pfizer series) [code = COVID-19 VACCINE (3 - Booster for Pfizer series)] Future Scheduled 2022-06-11 65[facility] 16:10:12 VACCINE (4 - PPSV23 if available, else PCV20) [code = 65+ PNEUMOCOCCAL VACCINE (4 - PPSV23 if available, else PCV20)] Future Scheduled 2022-06-11 INFLUENZA VACCINE Method [facility] Test 16:10:12 [code = INFLUENZA VACCINE] Future Scheduled 2022-06-11 SHINGLES VACCINES (1 Met [facility] Test 16:10:12 of 2) [code = SHINGLES VACCINES (1 of 2)] Future Scheduled 2022-06-11 BREAST CANCER [facility] Test 16:10:12 SCREENING [code = BREAST CANCER SCREENING] Future Scheduled 2022-06-11 COLONOSCOPY SCREENING [facility] Test 16:10:12 [code = COLONOSCOPY SCREENING] Future Scheduled 2022-06-11 HEPATITIS B VACCINES [facility] Test 16:10:12 (1 of 3 - Risk 3-dose series) [code = HEPATITIS B VACCINES (1 of 3 - Risk 3-dose series)] Future Scheduled 2022-06-11 COVID-19 VACCINE (3 - [facility] Test 16:10:12 Booster for Pfizer series) [code = COVID-19 VACCINE (3 - Booster for Pfizer series)] Future Scheduled 2022-06-11 65+ PNEUMOCOCCAL [facility] Test 16:10:12 VACCINE (4 - PPSV23 if available, else PCV20) [code = 65+ PNEUMOCOCCAL VACCINE (4 - PPSV23 if available, else PCV20)] Future Scheduled 2022-06-11 INFLUENZA VACCINE Method [facility] Test 16:10:12 [code = INFLUENZA VACCINE] Future Scheduled 2022-06-11 SHINGLES VACCINES (1 Met [facility] Test 16:10:12 of 2) [code = SHINGLES VACCINES (1 of 2)] Future Scheduled 2022-06-11 BREAST CANCER [facility] Test 16:10:12 SCREENING [code = BREAST CANCER SCREENING] Future Scheduled 2022-06-11 COLONOSCOPY SCREENING [facility] Test 16:10:12 [code = COLONOSCOPY SCREENING] Future Scheduled 2022-06-11 HEPATITIS B VACCINES [facility] Test 16:10:12 (1 of 3 - Risk 3-dose series) [code = HEPATITIS B VACCINES (1 of 3 - Risk 3-dose series)] Future Scheduled 2022-06-11 COVID-19 VACCINE (3 - Me [facility] Test 16:10:12 Booster for Pfizer series) [code = COVID-19 VACCINE (3 - Booster for Pfizer series)] Future Scheduled 2022-06-11 65[facility] VACCINE (4 - PPSV23 if available, else PCV20) [code = 65+ PNEUMOCOCCAL VACCINE (4 - PPSV23 if available, else PCV20)] Future Scheduled 2022-06-11 INFLUENZA VACCINE Method [facility] Test 16:10:12 [code = INFLUENZA VACCINE] Future Scheduled 2022-06-11 SHINGLES VACCINES (1 Met [facility] Test 16:10:12 of 2) [code = SHINGLES VACCINES (1 of 2)] Future Scheduled 2022-06-11 BREAST CANCER [facility] Test 16:10:12 SCREENING [code = BREAST CANCER SCREENING] Future Scheduled 2022-06-11 COLONOSCOPY SCREENING [facility] Test 16:10:12 [code = COLONOSCOPY SCREENING] Future Scheduled 2022-06-11 HEPATITIS B VACCINES [facility] Test 16:10:12 (1 of 3 - Risk 3-dose series) [code = HEPATITIS B VACCINES (1 of 3 - Risk 3-dose series)] Future Scheduled 2022-06-11 COVID-19 VACCINE (3 - [facility] Test 16:10:12 Booster for Pfizer series) [code = COVID-19 VACCINE (3 - Booster for Pfizer series)] Future Scheduled 2022-06-11 65[facility] VACCINE (4 - PPSV23 if available, else PCV20) [code = 65+ PNEUMOCOCCAL VACCINE (4 - PPSV23 if available, else PCV20)] Future Scheduled 2022-06-11 INFLUENZA VACCINE Method [facility] Test 16:10:12 [code = INFLUENZA VACCINE] Future Scheduled 2022-06-11 SHINGLES VACCINES (1 Met [facility] Test 16:10:12 of 2) [code = SHINGLES VACCINES (1 of 2)] Future Scheduled 2022-06-11 BREAST CANCER [facility] Test 16:10:12 SCREENING [code = BREAST CANCER SCREENING] Future Scheduled 2022-06-11 COLONOSCOPY SCREENING [facility] Test 16:10:12 [code = COLONOSCOPY SCREENING] Future Scheduled 2022-06-11 HEPATITIS B VACCINES [facility] Test 16:10:12 (1 of 3 - Risk 3-dose series) [code = HEPATITIS B VACCINES (1 of 3 - Risk 3-dose series)] Future Scheduled 2022-06-11 COVID-19 VACCINE (3 - [facility] Test 16:10:12 Booster for Pfizer series) [code = COVID-19 VACCINE (3 - Booster for Pfizer series)] Future Scheduled 2022-06-11 65[facility] VACCINE (4 - PPSV23 if available, else PCV20) [code = 65+ PNEUMOCOCCAL VACCINE (4 - PPSV23 if available, else PCV20)] Future Scheduled 2022-06-11 INFLUENZA VACCINE Method [facility] Test 16:10:12 [code = INFLUENZA VACCINE] Future Scheduled 2022-06-11 SHINGLES VACCINES (1 Met [facility] Test 16:10:12 of 2) [code = SHINGLES VACCINES (1 of 2)] Future Scheduled 2022-06-11 BREAST CANCER [facility] Test 16:10:12 SCREENING [code = BREAST CANCER SCREENING] Future Scheduled 2022-06-11 COLONOSCOPY SCREENING [facility] Test 16:10:12 [code = COLONOSCOPY SCREENING] Future Scheduled 2022-06-11 HEPATITIS B VACCINES [facility] Test 16:10:12 (1 of 3 - Risk 3-dose series) [code = HEPATITIS B VACCINES (1 of 3 - Risk 3-dose series)] Future Scheduled 2022-06-11 COVID-19 VACCINE (3 - [facility] Test 16:10:12 Booster for Pfizer series) [code = COVID-19 VACCINE (3 - Booster for Pfizer series)] Future Scheduled 2022-06-11 65+ PNEUMOCOCCAL [facility] Test 16:10:12 VACCINE (4 - PPSV23 if available, else PCV20) [code = 65+ PNEUMOCOCCAL VACCINE (4 - PPSV23 if available, else PCV20)] Future Scheduled 2022-06-11 INFLUENZA VACCINE Method [facility] Test 16:10:12 [code = INFLUENZA VACCINE] Future Scheduled 2022-06-11 SHINGLES VACCINES (1 Met [facility] Test 16:10:12 of 2) [code = SHINGLES VACCINES (1 of 2)] Future Scheduled 2022-06-11 BREAST CANCER [facility] Test 16:10:12 SCREENING [code = BREAST CANCER SCREENING] Future Scheduled 2022-06-11 COLONOSCOPY SCREENING [facility] Test 16:10:12 [code = COLONOSCOPY SCREENING] Future Scheduled 2022-06-11 HEPATITIS B VACCINES Met [facility] Test 16:10:12 (1 of 3 - Risk 3-dose series) [code = HEPATITIS B VACCINES (1 of 3 - Risk 3-dose series)] Future Scheduled 2022-06-11 COVID-19 VACCINE (3 - Me [facility] Test 16:10:12 Booster for Pfizer series) [code = COVID-19 VACCINE (3 - Booster for Pfizer series)] Future Scheduled 2022-06-11 65+ [facility] 16:10:12 VACCINE (4 - PPSV23 if available, else PCV20) [code = 65+ PNEUMOCOCCAL VACCINE (4 - PPSV23 if available, else PCV20)] Future Scheduled 2022-06-11 INFLUENZA VACCINE Method [facility] Test 16:10:12 [code = INFLUENZA VACCINE] Future Scheduled 2022-05-10 SHINGLES VACCINES (1 Met [facility] Test 10:21:35 of 2) [code = SHINGLES VACCINES (1 of 2)] Future Scheduled 2022-05-10 BREAST CANCER [facility] Test 10:21:35 SCREENING [code = BREAST CANCER SCREENING] Future Scheduled 2022-05-10 COLONOSCOPY SCREENING [facility] Test 10:21:35 [code = COLONOSCOPY SCREENING] Future Scheduled 2022-05-10 HEPATITIS B VACCINES Met [facility] Test 10:21:35 (1 of 3 - Risk 3-dose series) [code = HEPATITIS B VACCINES (1 of 3 - Risk 3-dose series)] Future Scheduled 2022-05-10 COVID-19 VACCINE (3 - Me [facility] Test 10:21:35 Booster for Pfizer series) [code = COVID-19 VACCINE (3 - Booster for Pfizer series)] Future Scheduled 2022-05-10 65[facility] VACCINE (4 - PPSV23 if available, else PCV20) [code = 65+ PNEUMOCOCCAL VACCINE (4 - PPSV23 if available, else PCV20)] Future Scheduled 2022-05-10 INFLUENZA VACCINE Method [facility] Test 10:21:35 [code = INFLUENZA VACCINE] Future Scheduled 2022-05-10 SHINGLES VACCINES (1 Met [facility] Test 10:21:35 of 2) [code = SHINGLES VACCINES (1 of 2)] Future Scheduled 2022-05-10 BREAST CANCER [facility] Test 10:21:35 SCREENING [code = BREAST CANCER SCREENING] Future Scheduled 2022-05-10 COLONOSCOPY SCREENING [facility] Test 10:21:35 [code = COLONOSCOPY SCREENING] Future Scheduled 2022-05-10 HEPATITIS B VACCINES Met [facility] Test 10:21:35 (1 of 3 - Risk 3-dose series) [code = HEPATITIS B VACCINES (1 of 3 - Risk 3-dose series)] Future Scheduled 2022-05-10 COVID-19 VACCINE (3 - [facility] Test 10:21:35 Booster for Pfizer series) [code = COVID-19 VACCINE (3 - Booster for Pfizer series)] Future Scheduled 2022-05-10 65+ PNEUMOCOCCAL [facility] Test 10:21:35 VACCINE (4 - PPSV23 if available, else PCV20) [code = 65+ PNEUMOCOCCAL VACCINE (4 - PPSV23 if available, else PCV20)] Future Scheduled 2022-05-10 INFLUENZA VACCINE Method [facility] Test 10:21:35 [code = INFLUENZA VACCINE] Future Scheduled 2022-05-06 SHINGLES VACCINES (1 Met [facility] Test 14:03:13 of 2) [code = SHINGLES VACCINES (1 of 2)] Future Scheduled 2022-05-06 BREAST CANCER [facility] Test 14:03:13 SCREENING [code = BREAST CANCER SCREENING] Future Scheduled 2022-05-06 COLONOSCOPY SCREENING [facility] Test 14:03:13 [code = COLONOSCOPY SCREENING] Future Scheduled 2022-05-06 HEPATITIS B VACCINES Met [facility] Test 14:03:13 (1 of 3 - Risk 3-dose series) [code = HEPATITIS B VACCINES (1 of 3 - Risk 3-dose series)] Future Scheduled 2022-05-06 COVID-19 VACCINE (3 - [facility] Test 14:03:13 Booster for Pfizer series) [code = COVID-19 VACCINE (3 - Booster for Pfizer series)] Future Scheduled 2022-05-06 65+ PNEUMOCOCCAL [facility] Test 14:03:13 VACCINE (4 - PPSV23 if available, else PCV20) [code = 65+ PNEUMOCOCCAL VACCINE (4 - PPSV23 if available, else PCV20)] Future Scheduled 2022-05-06 INFLUENZA VACCINE Method [facility] Test 14:03:13 [code = INFLUENZA VACCINE] Future Scheduled 2022-04-30 SHINGLES VACCINES (1 Met [facility] Test 01:07:32 of 2) [code = SHINGLES VACCINES (1 of 2)] Future Scheduled 2022-04-30 BREAST CANCER [facility] Test 01:07:32 SCREENING [code = BREAST CANCER SCREENING] Future Scheduled 2022-04-30 COLONOSCOPY SCREENING [facility] Test 01:07:32 [code = COLONOSCOPY SCREENING] Future Scheduled 2022-04-30 HEPATITIS B VACCINES Met [facility] Test 01:07:32 (1 of 3 - Risk 3-dose series) [code = HEPATITIS B VACCINES (1 of 3 - Risk 3-dose series)] Future Scheduled 2022-04-30 COVID-19 VACCINE (3 - Me [facility] Test 01:07:32 Booster for Pfizer series) [code = COVID-19 VACCINE (3 - Booster for Pfizer series)] Future Scheduled 2022-04-30 65+ PNEUMOCOCCAL [facility] Test 01:07:32 VACCINE (4 - PPSV23 if available, else PCV20) [code = 65+ PNEUMOCOCCAL VACCINE (4 - PPSV23 if available, else PCV20)] Future Scheduled 2022-04-30 INFLUENZA VACCINE Method [facility] Test 01:07:32 [code = INFLUENZA VACCINE] Future Scheduled 2022-04-30 SHINGLES VACCINES (1 Met [facility] Test 01:07:32 of 2) [code = SHINGLES VACCINES (1 of 2)] Future Scheduled 2022-04-30 BREAST CANCER [facility] Test 01:07:32 SCREENING [code = BREAST CANCER SCREENING] Future Scheduled 2022-04-30 COLONOSCOPY SCREENING [facility] Test 01:07:32 [code = COLONOSCOPY SCREENING] Future Scheduled 2022-04-30 HEPATITIS B VACCINES Met [facility] Test 01:07:32 (1 of 3 - Risk 3-dose series) [code = HEPATITIS B VACCINES (1 of 3 - Risk 3-dose series)] Future Scheduled 2022-04-30 COVID-19 VACCINE (3 - Me [facility] Test 01:07:32 Booster for Pfizer series) [code = COVID-19 VACCINE (3 - Booster for Pfizer series)] Future Scheduled 2022-04-30 65[facility]:07[facility] VACCINE (4 - PPSV23 if available, else PCV20) [code = 65+ PNEUMOCOCCAL VACCINE (4 - PPSV23 if available, else PCV20)] Future Scheduled 2022-04-30 INFLUENZA VACCINE Method [facility] Test 01:07:32 [code = INFLUENZA VACCINE] Future Scheduled 2022-04-30 SHINGLES VACCINES (1 Met [facility] Test 01:07:32 of 2) [code = SHINGLES VACCINES (1 of 2)] Future Scheduled 2022-04-30 BREAST CANCER [facility] Test 01:07:32 SCREENING [code = BREAST CANCER SCREENING] Future Scheduled 2022-04-30 COLONOSCOPY SCREENING [facility] Test 01:07:32 [code = COLONOSCOPY SCREENING] Future Scheduled 2022-04-30 HEPATITIS B VACCINES Met [facility] Test 01:07:32 (1 of 3 - Risk 3-dose series) [code = HEPATITIS B VACCINES (1 of 3 - Risk 3-dose series)] Future Scheduled 2022-04-30 COVID-19 VACCINE (3 - [facility] Test 01:07:32 Booster for Pfizer series) [code = COVID-19 VACCINE (3 - Booster for Pfizer series)] Future Scheduled 2022-04-30 65+ PNEUMOCOCCAL [facility] Test 01:07:32 VACCINE (4 - PPSV23 if available, else PCV20) [code = 65+ PNEUMOCOCCAL VACCINE (4 - PPSV23 if available, else PCV20)] Future Scheduled 2022-04-30 INFLUENZA VACCINE Method [facility] Test 01:07:32 [code = INFLUENZA VACCINE] Future Scheduled 2022-04-25 SHINGLES VACCINES (1 Met [facility] Test 01:45:02 of 2) [code = SHINGLES VACCINES (1 of 2)] Future Scheduled 2022-04-25 BREAST CANCER [facility] Test 01:45:02 SCREENING [code = BREAST CANCER SCREENING] Future Scheduled 2022-04-25 COLONOSCOPY SCREENING [facility] Test 01:45:02 [code = COLONOSCOPY SCREENING] Future Scheduled 2022-04-25 HEPATITIS B VACCINES Met [facility] Test 01:45:02 (1 of 3 - Risk 3-dose series) [code = HEPATITIS B VACCINES (1 of 3 - Risk 3-dose series)] Future Scheduled 2022-04-25 COVID-19 VACCINE (3 - [facility] Test 01:45:02 Booster for Pfizer series) [code = COVID-19 VACCINE (3 - Booster for Pfizer series)] Future Scheduled 2022-04-25 65[facility] 01:45:02 VACCINE (4 - PPSV23 if available, else PCV20) [code = 65+ PNEUMOCOCCAL VACCINE (4 - PPSV23 if available, else PCV20)] Future Scheduled 2022-04-25 INFLUENZA VACCINE Method [facility] Test 01:45:02 [code = INFLUENZA VACCINE] Future Scheduled 2022-03-25 SHINGLES VACCINES (1 Met [facility] Test 14:48:42 of 2) [code = SHINGLES VACCINES (1 of 2)] Future Scheduled 2022-03-25 BREAST CANCER [facility] Test 14:48:42 SCREENING [code = BREAST CANCER SCREENING] Future Scheduled 2022-03-25 COLONOSCOPY SCREENING [facility] Test 14:48:42 [code = COLONOSCOPY SCREENING] Future Scheduled 2022-03-25 HEPATITIS B VACCINES Met [facility] Test 14:48:42 (1 of 3 - Risk 3-dose series) [code = HEPATITIS B VACCINES (1 of 3 - Risk 3-dose series)] Future Scheduled 2022-03-25 COVID-19 VACCINE (3 - [facility] Test 14:48:42 Booster for Pfizer series) [code = COVID-19 VACCINE (3 - Booster for Pfizer series)] Future Scheduled 2022-03-25 65+ [facility] 14:48:42 VACCINE (4 - PPSV23 if available, else PCV20) [code = 65+ PNEUMOCOCCAL VACCINE (4 - PPSV23 if available, else PCV20)] Future Scheduled 2022-03-25 INFLUENZA VACCINE Method [facility] Test 14:48:42 [code = INFLUENZA VACCINE] Future Scheduled 2022-03-25 SHINGLES VACCINES (1 Met [facility] Test 14:48:42 of 2) [code = SHINGLES VACCINES (1 of 2)] Future Scheduled 2022-03-25 BREAST CANCER [facility] Test 14:48:42 SCREENING [code = BREAST CANCER SCREENING] Future Scheduled 2022-03-25 COLONOSCOPY SCREENING [facility] Test 14:48:42 [code = COLONOSCOPY SCREENING] Future Scheduled 2022-03-25 HEPATITIS B VACCINES Met [facility] Test 14:48:42 (1 of 3 - Risk 3-dose series) [code = HEPATITIS B VACCINES (1 of 3 - Risk 3-dose series)] Future Scheduled 2022-03-25 COVID-19 VACCINE (3 - [facility] Test 14:48:42 Booster for Pfizer series) [code = COVID-19 VACCINE (3 - Booster for Pfizer series)] Future Scheduled 2022-03-25 65+ PNEUMOCOCCAL [facility] Test 14:48:42 VACCINE (4 - PPSV23 if available, else PCV20) [code = 65+ PNEUMOCOCCAL VACCINE (4 - PPSV23 if available, else PCV20)] Future Scheduled 2022-03-25 INFLUENZA VACCINE Method [facility] Test 14:48:42 [code = INFLUENZA VACCINE] Future Scheduled 2022-03-25 SHINGLES VACCINES (1 Met [facility] Test 14:48:42 of 2) [code = SHINGLES VACCINES (1 of 2)] Future Scheduled 2022-03-25 BREAST CANCER [facility] Test 14:48:42 SCREENING [code = BREAST CANCER SCREENING] Future Scheduled 2022-03-25 COLONOSCOPY SCREENING [facility] Test 14:48:42 [code = COLONOSCOPY SCREENING] Future Scheduled 2022-03-25 HEPATITIS B VACCINES Met [facility] Test 14:48:42 (1 of 3 - Risk 3-dose series) [code = HEPATITIS B VACCINES (1 of 3 - Risk 3-dose series)] Future Scheduled 2022-03-25 COVID-19 VACCINE (3 - [facility] Test 14:48:42 Booster for Pfizer series) [code = COVID-19 VACCINE (3 - Booster for Pfizer series)] Future Scheduled 2022-03-25 65+ PNEUMOCOCCAL [facility] Test 14:48:42 VACCINE (4 - PPSV23 if available, else PCV20) [code = 65+ PNEUMOCOCCAL VACCINE (4 - PPSV23 if available, else PCV20)] Future Scheduled 2022-03-25 INFLUENZA VACCINE Method [facility] Test 14:48:42 [code = INFLUENZA VACCINE] Future Scheduled 2022-03-25 SHINGLES VACCINES (1 Met [facility] Test 14:48:42 of 2) [code = SHINGLES VACCINES (1 of 2)] Future Scheduled 2022-03-25 BREAST CANCER [facility] Test 14:48:42 SCREENING [code = BREAST CANCER SCREENING] Future Scheduled 2022-03-25 COLONOSCOPY SCREENING [facility] Test 14:48:42 [code = COLONOSCOPY SCREENING] Future Scheduled 2022-03-25 HEPATITIS B VACCINES Met [facility] Test 14:48:42 (1 of 3 - Risk 3-dose series) [code = HEPATITIS B VACCINES (1 of 3 - Risk 3-dose series)] Future Scheduled 2022-03-25 COVID-19 VACCINE (3 - Me [facility] Test 14:48:42 Booster for Pfizer series) [code = COVID-19 VACCINE (3 - Booster for Pfizer series)] Future Scheduled 2022-03-25 65[facility] 14:[facility] VACCINE (4 - PPSV23 if available, else PCV20) [code = 65+ PNEUMOCOCCAL VACCINE (4 - PPSV23 if available, else PCV20)] Future Scheduled 2022-03-25 INFLUENZA VACCINE Method [facility] Test 14:48:42 [code = INFLUENZA VACCINE] Future Scheduled 2022-03-25 SHINGLES VACCINES (1 Met [facility] Test 14:48:42 of 2) [code = SHINGLES VACCINES (1 of 2)] Future Scheduled 2022-03-25 BREAST CANCER [facility] Test 14:48:42 SCREENING [code = BREAST CANCER SCREENING] Future Scheduled 2022-03-25 COLONOSCOPY SCREENING [facility] Test 14:48:42 [code = COLONOSCOPY SCREENING] Future Scheduled 2022-03-25 HEPATITIS B VACCINES Met [facility] Test 14:48:42 (1 of 3 - Risk 3-dose series) [code = HEPATITIS B VACCINES (1 of 3 - Risk 3-dose series)] Future Scheduled 2022-03-25 COVID-19 VACCINE (3 - [facility] Test 14:48:42 Booster for Pfizer series) [code = COVID-19 VACCINE (3 - Booster for Pfizer series)] Future Scheduled 2022-03-25 65+ [facility] 14:48:42 VACCINE (4 - PPSV23 if available, else PCV20) [code = 65+ PNEUMOCOCCAL VACCINE (4 - PPSV23 if available, else PCV20)] Future Scheduled 2022-03-25 INFLUENZA VACCINE Method [facility] Test 14:48:42 [code = INFLUENZA VACCINE] Future Scheduled 2022-03-25 SHINGLES VACCINES (1 Met [facility] Test 14:48:42 of 2) [code = SHINGLES VACCINES (1 of 2)] Future Scheduled 2022-03-25 BREAST CANCER [facility] Test 14:48:42 SCREENING [code = BREAST CANCER SCREENING] Future Scheduled 2022-03-25 COLONOSCOPY SCREENING Me [facility] Test 14:48:42 [code = COLONOSCOPY SCREENING] Future Scheduled 2022-03-25 HEPATITIS B VACCINES Met [facility] Test 14:48:42 (1 of 3 - Risk 3-dose series) [code = HEPATITIS B VACCINES (1 of 3 - Risk 3-dose series)] Future Scheduled 2022-03-25 COVID-19 VACCINE (3 - Me [facility] Test 14:48:42 Booster for Pfizer series) [code = COVID-19 VACCINE (3 - Booster for Pfizer series)] Future Scheduled 2022-03-25 65+ [facility] Test 14:48:42 VACCINE (4 - PPSV23 if available, else PCV20) [code = 65+ PNEUMOCOCCAL VACCINE (4 - PPSV23 if available, else PCV20)] Future Scheduled 2022-03-25 INFLUENZA VACCINE Method [facility] Test 14:48:42 [code = INFLUENZA VACCINE] Future Scheduled 2022-03-25 SHINGLES VACCINES (1 Met [facility] Test 14:48:42 of 2) [code = SHINGLES VACCINES (1 of 2)] Future Scheduled 2022-03-25 BREAST CANCER [facility] Test 14:48:42 SCREENING [code = BREAST CANCER SCREENING] Future Scheduled 2022-03-25 COLONOSCOPY SCREENING [facility] Test 14:48:42 [code = COLONOSCOPY SCREENING] Future Scheduled 2022-03-25 HEPATITIS B VACCINES Met [facility] Test 14:48:42 (1 of 3 - Risk 3-dose series) [code = HEPATITIS B VACCINES (1 of 3 - Risk 3-dose series)] Future Scheduled 2022-03-25 COVID-19 VACCINE (3 - Me [facility] Test 14:48:42 Booster for Pfizer series) [code = COVID-19 VACCINE (3 - Booster for Pfizer series)] Future Scheduled 2022-03-25 65+ [facility] 14:48:42 VACCINE (4 - PPSV23 if available, else PCV20) [code = 65+ PNEUMOCOCCAL VACCINE (4 - PPSV23 if available, else PCV20)] Future Scheduled 2022-03-25 INFLUENZA VACCINE Method [facility] Test 14:48:42 [code = INFLUENZA VACCINE] Future Scheduled 2022-03-25 SHINGLES VACCINES (1 Met [facility] Test 14:48:42 of 2) [code = SHINGLES VACCINES (1 of 2)] Future Scheduled 2022-03-25 BREAST CANCER [facility] Test 14:48:42 SCREENING [code = BREAST CANCER SCREENING] Future Scheduled 2022-03-25 COLONOSCOPY SCREENING [facility] Test 14:48:42 [code = COLONOSCOPY SCREENING] Future Scheduled 2022-03-25 HEPATITIS B VACCINES Met [facility] Test 14:48:42 (1 of 3 [...] PCV20)] Future Scheduled 2022-03-25 INFLUENZA VACCINE Method [facility] Test 14:48:42 [code = INFLUENZA VACCINE] Future Scheduled 2022-03-25 SHINGLES VACCINES (1 Met [facility] Test 14:48:42 of 2) [code = SHINGLES VACCINES (1 of 2)] Future Scheduled 2022-03-25 BREAST CANCER [facility] Test 14:48:42 SCREENING [code = BREAST CANCER SCREENING] Future Scheduled 2022-03-25 COLONOSCOPY SCREENING [facility] Test 14:48:42 [code = COLONOSCOPY SCREENING] Future Scheduled 2022-03-25 HEPATITIS B VACCINES Met [facility] Test 14:48:42 (1 of 3 - Risk 3-dose series) [code = HEPATITIS B VACCINES (1 of 3 - Risk 3-dose series)] Future Scheduled 2022-03-25 COVID-19 VACCINE (3 - [facility] Test 14:48:42 Booster for Pfizer series) [code = COVID-19 VACCINE (3 - Booster for Pfizer series)] Future Scheduled 2022-03-25 65[facility]:48[facility] VACCINE (4 - PPSV23 if available, else PCV20) [code = 65+ PNEUMOCOCCAL VACCINE (4 - PPSV23 if available, else PCV20)] Future Scheduled 2022-03-25 INFLUENZA VACCINE Method [facility] Test 14:48:42 [code = INFLUENZA VACCINE] Future Scheduled 2022-03-04 SHINGLES VACCINES (1 Met [facility] Test 14:03:57 of 2) [code = SHINGLES VACCINES (1 of 2)] Future Scheduled 2022-03-04 BREAST CANCER [facility] Test 14:03:57 SCREENING [code = BREAST CANCER SCREENING] Future Scheduled 2022-03-04 COLONOSCOPY SCREENING [facility] Test 14:03:57 [code = COLONOSCOPY SCREENING] Future Scheduled 2022-03-04 HEPATITIS B VACCINES Met [facility] Test 14:03:57 (1 of 3 - Risk 3-dose series) [code = HEPATITIS B VACCINES (1 of 3 - Risk 3-dose series)] Future Scheduled 2022-03-04 COVID-19 VACCINE (3 - [facility] Test 14:03:57 Booster for Pfizer series) [code = COVID-19 VACCINE (3 - Booster for Pfizer series)] Future Scheduled 2022-03-04 65+ PNEUMOCOCCAL [facility] Test 14:03:57 VACCINE (4 - PPSV23 if available, else PCV20) [code = 65+ PNEUMOCOCCAL VACCINE (4 - PPSV23 if available, else PCV20)] Future Scheduled 2022-03-04 INFLUENZA VACCINE Method [facility] Test 14:03:57 [code = INFLUENZA VACCINE] Future Scheduled 2022-03-04 SHINGLES VACCINES (1 Met [facility] Test 14:03:57 of 2) [code = SHINGLES VACCINES (1 of 2)] Future Scheduled 2022-03-04 BREAST CANCER [facility] Test 14:03:57 SCREENING [code = BREAST CANCER SCREENING] Future Scheduled 2022-03-04 COLONOSCOPY SCREENING [facility] Test 14:03:57 [code = COLONOSCOPY SCREENING] Future Scheduled 2022-03-04 HEPATITIS B VACCINES Met [facility] Test 14:03:57 (1 of 3 - Risk 3-dose series) [code = HEPATITIS B VACCINES (1 of 3 - Risk 3-dose series)] Future Scheduled 2022-03-04 COVID-19 VACCINE (3 - [facility] Test 14:03:57 Booster for Pfizer series) [code = COVID-19 VACCINE (3 - Booster for Pfizer series)] Future Scheduled 2022-03-04 65[facility]:03:[facility] VACCINE (4 - PPSV23 if available, else PCV20) [code = 65+ PNEUMOCOCCAL VACCINE (4 - PPSV23 if available, else PCV20)] Future Scheduled 2022-03-04 INFLUENZA VACCINE Method [facility] Test 14:03:57 [code = INFLUENZA VACCINE] Future Scheduled 2022-03-04 SHINGLES VACCINES (1 Met [facility] Test 14:03:57 of 2) [code = SHINGLES VACCINES (1 of 2)] Future Scheduled 2022-03-04 BREAST CANCER [facility] Test 14:03:57 SCREENING [code = BREAST CANCER SCREENING] Future Scheduled 2022-03-04 COLONOSCOPY SCREENING [facility] Test 14:03:57 [code = COLONOSCOPY SCREENING] Future Scheduled 2022-03-04 HEPATITIS B VACCINES Met [facility] Test 14:03:57 (1 of 3 - Risk 3-dose series) [code = HEPATITIS B VACCINES (1 of 3 - Risk 3-dose series)] Future Scheduled 2022-03-04 COVID-19 VACCINE (3 - [facility] Test 14:03:57 Booster for Pfizer series) [code = COVID-19 VACCINE (3 - Booster for Pfizer series)] Future Scheduled 2022-03-04 65+ PNEUMOCOCCAL [facility] Test 14:03:57 VACCINE (4 - PPSV23 if available, else PCV20) [code = 65+ PNEUMOCOCCAL VACCINE (4 - PPSV23 if available, else PCV20)] Future Scheduled 2022-03-04 INFLUENZA VACCINE Method [facility] Test 14:03:57 [code = INFLUENZA VACCINE] Future Scheduled 2022-03-04 SHINGLES VACCINES (1 Met [facility] Test 14:03:57 of 2) [code = SHINGLES VACCINES (1 of 2)] Future Scheduled 2022-03-04 BREAST CANCER [facility] Test 14:03:57 SCREENING [code = BREAST CANCER SCREENING] Future Scheduled 2022-03-04 COLONOSCOPY SCREENING [facility] Test 14:03:57 [code = COLONOSCOPY SCREENING] Future Scheduled 2022-03-04 HEPATITIS B VACCINES Met [facility] Test 14:03:57 (1 of 3 - Risk 3-dose series) [code = HEPATITIS B VACCINES (1 of 3 - Risk 3-dose series)] Future Scheduled 2022-03-04 COVID-19 VACCINE (3 - [facility] Test 14:03:57 Booster for Pfizer series) [code = COVID-19 VACCINE (3 - Booster for Pfizer series)] Future Scheduled 2022-03-04 65+ PNEUMOCOCCAL [facility] Test 14:03:57 VACCINE (4 - PPSV23 if available, else PCV20) [code = 65+ PNEUMOCOCCAL VACCINE (4 - PPSV23 if available, else PCV20)] Future Scheduled 2022-03-04 INFLUENZA VACCINE Method [facility] Test 14:03:57 [code = INFLUENZA VACCINE] Future Scheduled 2022-02-11 SHINGLES VACCINES (1 Met [facility] Test 13:39:12 of 2) [code = SHINGLES VACCINES (1 of 2)] Future Scheduled 2022-02-11 BREAST CANCER [facility] Test 13:39:12 SCREENING [code = BREAST CANCER SCREENING] Future Scheduled 2022-02-11 COLONOSCOPY SCREENING [facility] Test 13:39:12 [code = COLONOSCOPY SCREENING] Future Scheduled 2022-02-11 HEPATITIS B VACCINES Met [facility] Test 13:39:12 (1 of 3 - Risk 3-dose series) [code = HEPATITIS B VACCINES (1 of 3 - Risk 3-dose series)] Future Scheduled 2022-02-11 COVID-19 VACCINE (3 - [facility] Test 13:39:12 Booster for Pfizer series) [code = COVID-19 VACCINE (3 - Booster for Pfizer series)] Future Scheduled 2022-02-11 65+ PNEUMOCOCCAL [facility] Test 13:39:12 VACCINE (4 - PPSV23 or PCV20) [code = 65+ PNEUMOCOCCAL VACCINE (4 - PPSV23 or PCV20)] Future Scheduled 2022-02-11 INFLUENZA VACCINE Method [facility] Test 13:39:12 [code = INFLUENZA VACCINE] Future Scheduled 2022-01-29 SHINGLES VACCINES (1 Met [facility] Test 14:07:20 of 2) [code = SHINGLES VACCINES (1 of 2)] Future Scheduled 2022-01-29 BREAST CANCER [facility] Test 14:07:20 SCREENING [code = BREAST CANCER SCREENING] Future Scheduled 2022-01-29 COLONOSCOPY SCREENING [facility] Test 14:07:20 [code = COLONOSCOPY SCREENING] Future Scheduled 2022-01-29 HEPATITIS B VACCINES Met [facility] Test 14:07:20 (1 of 3 - Risk 3-dose series) [code = HEPATITIS B VACCINES (1 of 3 - Risk 3-dose series)] Future Scheduled 2022-01-29 COVID-19 VACCINE (3 - Me [facility] Test 14:07:20 Booster for Pfizer series) [code = COVID-19 VACCINE (3 - Booster for Pfizer series)] Future Scheduled 2022-01-29 65+ PNEUMOCOCCAL [facility] Test 14:07:20 VACCINE (4 - PPSV23 or PCV20) [code = 65+ PNEUMOCOCCAL VACCINE (4 - PPSV23 or PCV20)] Future Scheduled 2022-01-29 INFLUENZA VACCINE Method [facility] Test 14:07:20 [code = INFLUENZA VACCINE] Future Scheduled 2022-01-29 SHINGLES VACCINES (1 Met [facility] Test 14:07:20 of 2) [code = SHINGLES VACCINES (1 of 2)] Future Scheduled 2022-01-29 BREAST CANCER [facility] Test 14:07:20 SCREENING [code = BREAST CANCER SCREENING] Future Scheduled 2022-01-29 COLONOSCOPY SCREENING [facility] Test 14:07:20 [code = COLONOSCOPY SCREENING] Future Scheduled 2022-01-29 HEPATITIS B VACCINES Met [facility] Test 14:07:20 (1 of 3 - Risk 3-dose series) [code = HEPATITIS B VACCINES (1 of 3 - Risk 3-dose series)] Future Scheduled 2022-01-29 COVID-19 VACCINE (3 - Me [facility] Test 14:07:20 Booster for Pfizer series) [code = COVID-19 VACCINE (3 - Booster for Pfizer series)] Future Scheduled 2022-01-29 65+ PNEUMOCOCCAL [facility] Test 14:07:20 VACCINE (4 - PPSV23 or PCV20) [code = 65+ PNEUMOCOCCAL VACCINE (4 - PPSV23 or PCV20)] Future Scheduled 2022-01-29 INFLUENZA VACCINE Method [facility] Test 14:07:20 [code = INFLUENZA VACCINE] Future Scheduled 2022-01-29 SHINGLES VACCINES (1 Met [facility] Test 14:07:20 of 2) [code = SHINGLES VACCINES (1 of 2)] Future Scheduled 2022-01-29 BREAST CANCER [facility] Test 14:07:20 SCREENING [code = BREAST CANCER SCREENING] Future Scheduled 2022-01-29 COLONOSCOPY SCREENING [facility] Test 14:07:20 [code = COLONOSCOPY SCREENING] Future Scheduled 2022-01-29 HEPATITIS B VACCINES Met [facility] Test 14:07:20 (1 of 3 - Risk 3-dose series) [code = HEPATITIS B VACCINES (1 of 3 - Risk 3-dose series)] Future Scheduled 2022-01-29 COVID-19 VACCINE (3 - Me [facility] Test 14:07:20 Booster for Pfizer series) [code = COVID-19 VACCINE (3 - Booster for Pfizer series)] Future Scheduled 2022-01-29 65[facility] VACCINE (4 - PPSV23 or PCV20) [code = 65+ PNEUMOCOCCAL VACCINE (4 - PPSV23 or PCV20)] Future Scheduled 2022-01-29 INFLUENZA VACCINE Method [facility] Test 14:07:20 [code = INFLUENZA VACCINE] Future Scheduled 2022-01-29 SHINGLES VACCINES (1 Met [facility] Test 14:07:20 of 2) [code = SHINGLES VACCINES (1 of 2)] Future Scheduled 2022-01-29 BREAST CANCER [facility] Test 14:07:20 SCREENING [code = BREAST CANCER SCREENING] Future Scheduled 2022-01-29 COLONOSCOPY SCREENING [facility] Test 14:07:20 [code = COLONOSCOPY SCREENING] Future Scheduled 2022-01-29 HEPATITIS B VACCINES Met [facility] Test 14:07:20 (1 of 3 - Risk 3-dose series) [code = HEPATITIS B VACCINES (1 of 3 - Risk 3-dose series)] Future Scheduled 2022-01-29 COVID-19 VACCINE (3 - [facility] Test 14:07:20 Booster for Pfizer series) [code = COVID-19 VACCINE (3 - Booster for Pfizer series)] Future Scheduled 2022-01-29 65[facility] 14:[facility]:20 VACCINE (4 - PPSV23 or PCV20) [code = 65+ PNEUMOCOCCAL VACCINE (4 - PPSV23 or PCV20)] Future Scheduled 2022-01-29 INFLUENZA VACCINE Method [facility] Test 14:07:20 [code = INFLUENZA VACCINE] Future Scheduled 2022-01-20 SHINGLES VACCINES (1 Met [facility] Test 06:12:34 of 2) [code = SHINGLES VACCINES (1 of 2)] Future Scheduled 2022-01-20 Screening for [facility] Test 06:12:34 malignant neoplasm of cervix (procedure) [code = 765761753] Future Scheduled 2022-01-20 BREAST CANCER [facility] Test 06:12:34 SCREENING [code = BREAST CANCER SCREENING] Future Scheduled 2022-01-20 COLONOSCOPY SCREENING [facility] Test 06:12:34 [code = COLONOSCOPY SCREENING] Future Scheduled 2022-01-20 HEPATITIS B VACCINES Met [facility] Test 06:12:34 (1 of 3 - Risk 3-dose series) [code = HEPATITIS B VACCINES (1 of 3 - Risk 3-dose series)] Future Scheduled 2022-01-20 COVID-19 VACCINE (3 - [facility] Test 06:12:34 Booster for Pfizer series) [code = COVID-19 VACCINE (3 - Booster for Pfizer series)] Future Scheduled 2022-01-20 65[facility] 06:12:34 VACCINE (4 - PPSV23 or PCV20) [code = 65+ PNEUMOCOCCAL VACCINE (4 - PPSV23 or PCV20)] Future Scheduled 2022-01-20 INFLUENZA VACCINE Method [facility] Test 06:12:34 [code = INFLUENZA VACCINE] Future Scheduled 2022-01-16 SHINGLES VACCINES (1 Met [facility] Test 12:09:25 of 2) [code = SHINGLES VACCINES (1 of 2)] Future Scheduled 2022-01-16 Screening for [facility] Test 12:09:25 malignant neoplasm of cervix (procedure) [code = 847127672] Future Scheduled 2022-01-16 BREAST CANCER [facility] Test 12:09:25 SCREENING [code = BREAST CANCER SCREENING] Future Scheduled 2022-01-16 COLONOSCOPY SCREENING [facility] Test 12:09:25 [code = COLONOSCOPY SCREENING] Future Scheduled 2022-01-16 HEPATITIS B VACCINES Met [facility] Test 12:09:25 (1 of 3 - Risk 3-dose series) [code = HEPATITIS B VACCINES (1 of 3 - Risk 3-dose series)] Future Scheduled 2022-01-16 COVID-19 VACCINE (3 - [facility] Test 12:09:25 Booster for Pfizer series) [code = COVID-19 VACCINE (3 - Booster for Pfizer series)] Future Scheduled 2022-01-16 65[facility] 12:09:25 VACCINE (4 - PPSV23 or PCV20) [code = 65+ PNEUMOCOCCAL VACCINE (4 - PPSV23 or PCV20)] Future Scheduled 2022-01-16 INFLUENZA VACCINE Method [facility] Test 12:09:25 [code = INFLUENZA VACCINE] Future Scheduled 2022-01-14 SHINGLES VACCINES (1 Met [facility] Test 04:11:46 of 2) [code = SHINGLES VACCINES (1 of 2)] Future Scheduled 2022-01-14 Screening for [facility] Test 04:11:46 malignant neoplasm of cervix (procedure) [code = [id number]] Future Scheduled 2022-01-14 BREAST CANCER [facility] Test 04:11:46 SCREENING [code = BREAST CANCER SCREENING] Future Scheduled 2022-01-14 COLONOSCOPY SCREENING [facility] Test 04:11:46 [code = COLONOSCOPY SCREENING] Future Scheduled 2022-01-14 HEPATITIS B VACCINES Met [facility] Test 04:11:46 (1 of 3 - Risk 3-dose series) [code = HEPATITIS B VACCINES (1 of 3 - Risk 3-dose series)] Future Scheduled 2022-01-14 COVID-19 VACCINE (3 - [facility] Test 04:11:46 Booster for Pfizer series) [code = COVID-19 VACCINE (3 - Booster for Pfizer series)] Future Scheduled 2022-01-14 65+ PNEUMOCOCCAL [facility] Test 04:11:46 VACCINE (4 - PPSV23 or PCV20) [code = 65+ PNEUMOCOCCAL VACCINE (4 - PPSV23 or PCV20)] Future Scheduled 2022-01-14 INFLUENZA VACCINE Method [facility] Test 04:11:46 [code = INFLUENZA VACCINE] Future Scheduled 2021-08-26 Screening for [facility] Test 13:02:23 malignant neoplasm of cervix (procedure) [code = [id number]] Future Scheduled 2021-08-26 BREAST CANCER [facility] Test 13:02:23 SCREENING [code = BREAST CANCER SCREENING] Future Scheduled 2021-08-26 COLONOSCOPY SCREENING [facility] Test 13:02:23 [code = COLONOSCOPY SCREENING] Future Scheduled 2021-08-26 Screening for [facility] Test 13:02:23 malignant neoplasm of lung (procedure) [code = 435113080] Future Scheduled 2021-08-26 SHINGLES [facility]ACCINES (#[facility]:02:23 [code = SHINGLES VACCINES (#1)] Future Scheduled 2021-08-26 COVID-19 [facility]ACCINE ([facility] Test 13:02:23 Pfizer risk 4-dose series) [code = COVID-19 VACCINE (3 - Pfizer risk 4-dose series)] Future Scheduled 2021-08-26 65+ [facility] Test 13:02:23 VACCINE (4 of 4 - PPSV23) [code = 65+ PNEUMOCOCCAL VACCINE (4 of 4 - PPSV23)] Future Scheduled 2021-08-26 [facility]ZA [facility]ACCINE [facility] Test 13:02:23 [code = INFLUENZA VACCINE] Encounters Start End Encounter Admission Attending Care Care Encounter Source Date/Time Date/Time Type Type Clinicians Facility Department ID 2022-02-18 Outpatient CHW [facility] [id number] [place] 14:30:[address] [place] [address] 2021-07-14 Outpatient SADIKOVIC, [facility] [id number] [place] 09:33:51 [facility] 2021-06-02 Outpatient HEMATPOUR, [facility] [id number] [place] 13:58:59 [facility] 2021-04-28 Outpatient HEMATPOUR, [facility] [id number] [place] 11:21:22 [facility] 2021-03-20 Emergency [facility] [id number] Univers 16:07:40 [facility] 2020-12-12 Outpatient HEMATPOUR, [facility] [id number] [place] 08:16:46 [facility] 2020-10-31 Outpatient HEMATPOUR, [facility] [id number] [place] 09:44:50 [facility] 2020-09-30 Outpatient HEMATPOUR, [facility] [id number] [place] 13:16:03 [facility] 2022-11-15 2022-11-15 Outpatient R [facility] [id number] Univers 08:30:[facility]-02 2022-11-02 Outpatient R EAST, [facility] [id number] Univers 08:30:00 08:30:[address] [facility] 2022-10-27 2022-10-27 Telephone [facility], UN[facility] 1.2.840.114 [id number] Univers 00:00:00 00:00:00 [facility] 350.1.13.10 i [place] [id number] [address] 2022-10-06 2022-10-06 Outpatient R [facility] [id number] Univers 09:30:00 09:30:[address] [facility] 2022-09-26 2022-09-26 Refill [facility] 1.2.018.776 [id number] Univers 00:00:00 00:00:00 [facility] 350.1.13.10 i [place] [id number] [address] 2022-09-03 2022-09-03 Outpatient [facility] [id number] Univers 11:00:00 11:00:[facility] 2022-08-24 [facility]22[facility] 1.2.840.2 [id number] Univers 00:00:00 00:00:00 [place] 39761.1.1 ity of 3.104.2.7 [place] .3.924659 Medica l .8 [place] 2022-05-20 2022-05-20 Telephone [facility] 1.2.840.114 [id number] Univers 00:00:00 00:00:00 [facility] 350.1.13.10 i [place] [id number] [address] 2022-05-10 2022-05-10 Emergency X BYRON, [facility] ERT [id number] Univers 10:30:00 16:31:[address] [facility] 2022-05-10 2022-05-10 Emergency Maxwell, TRAUMA 1.2.840.114 [id number] Univers 10:30:00 16:31:00 Home B CENTER 350.1.13.10 [place] [id number] [address] 2022-05-10 2022-05-10 Telephone [facility] 1.2.840.114 [id number] Univers 00:00:00 00:00:00 [facility] 350.1.13.10 i [place] [id number] [address] 2022-05-08 2022-05-08 Emergency [facility] [id number] Univers 16:18:00 18:42:00 THERESA barbosa [facility] 2022-05-08 2022-05-08 [facility] 1.2.840.114 [id number] Univers 16:18:00 18:42:00 Theresa BULLOCK 350.1.13.10 ity of [place] [id number] [address] 2022-05-07 2022-05-07 Telephone [facility] 1.2.840.114 [id number] Univers 00:00:00 00:00:00 [facility] 350.1.13.10 i [place] [id number] [address] 2022-05-06 2022-05-06 [facility] [id number] Univers 14:13:00 18:19:00 ANETTE barbosa [facility] 2022-05-06 2022-05-06 Emergency [facility] 1.2.875.948 [id number] Univers 14:13:00 18:19:00 Anette BULLOCK 350.1.13.10 ity of [place] [id number] [address] 2022-05-06 2022-05-06 Telephone [facility] 1.2.840.114 [id number] Univers 00:00:00 00:00:00 [facility] 350.1.13.10 i [place] [id number] [address] 2022-04-22 2022-04-22 Emergency [facility] [id number] Univers 13:55:00 17:00:[address] [facility] 2022-04-22 2022-04-22 [facility] 1.2.143.465 [id number] Univers 13:55:00 17:00:00 Paulette Gonzales [place] 350.1.13.10 i ty [place] [id number] [place] 874684 [place] 2022-04-07 2022-04-07 Outpatient R [facility] [id number] Univers 20:40:00 20:40:00 [facility] 2022-04-07 2022-04-07 Telephone Devin, 1.2.840.0 [id number] Univers 00:00:00 00:00:00 Robbi Hairston 36153.1.1 i ty of 3.104.2.7 [place] .3.204273 Medica l .8 [place] 2022-03-05 2022-03-05 Network Programmer RonaldSantiago 1.2.840.1 [id number] Univers 13:45:00 14:00:00 Visit [facility] 92495.1.1 ity of 3.104.2.7 [place] .3.794332 Medica l .8 [place] 2022-03-05 2022-03-05 Office RonaldJOSÉ ANTONIO 1.2.944.642 [id number] Univers 13:00:00 13:30:00 Visit [facility] 350.1.13.10 i ty of [facility] 4.[place] [id number] [address] 2022-03-05 2022-03-05 Outpatient R [facility] [id number] Univers 13:00:00 13:00:[facility] 2022-02-26 2022-02-26 Outpatient R [facility] [id number] Univers 08:30:00 08:30:00 [facility] 2022-02-26 2022-02-26 Outpatient R [facility] [id number] Univers 08:30:00 08:30:00 SANTIAGO ity of [facility] 2022-02-17 2022-02-17 Transition Stevo, 1.2.840.6 [id number] Univers 00:00:00 00:00:00 of Care Isaias Arredondo 75879.1.1 it y of 3.104.2.7 [place] .3.059238 Medica [place] .8 [place] 2022-02-10 2022-02-16 Inpatient X FRANK [facility] FAVIO [id number] Univers 22:59:00 19:27:00 TOMY ity of [facility] 2022-02-10 2022-02-16 Hospital Reilly Means 1.2.840.1 [id number] Univers 22:59:00 19:27:00 Encounter Ofe Shields 88574.1.1 ity of [place] 3.104.2.7 [place] .3.729532 Medica l .8 [place] 2022-02-11 2022-02-11 Telephone [place], 1.2.840.4 [id number] Univers 00:00:00 00:00:00 [place] 65186.1.1 ity of 3.104.2.7 [place] .3.111665 Medica l .8 [place] 2022-02-10 2022-02-10 Travel 1.2.840.1 1.2.378.423 [id number] Univers 00:00:00 00:00:00 17944.1.1 350.1.13.10 ity of 3.104.2.7 4.[place].7.3.698 [place] .3.445111 084.8 Medica l .8 [place] 2022-01-30 2022-01-30 Telephone East, 1.2.840.8 [id number] Univers 00:00:00 00:00:00 [place] 85712.1.1 ity of 3.104.2.7 [place] .3.467458 Medica l .8 [place] 2022-01-06 2022-01-06 Orders Doctor FERMIN 1.2.840.114 [id number] Univers 00:00:00 00:00:00 Only Unassigned, JACKELINE 350.1.13.10 ity of [place] [facility] 4.2.7.2.686 Yomi as [id number] [facility] 009 [place] 2021-12-25 2021-12-25 Orders Doctor FERMIN 1.2.840.114 [id number] Univers 00:00:00 00:00:00 Only Unassigned, JACKELINE 350.1.13.10 ity of [place] [facility] 4.2.7.2.686 Yomi as [id number] [facility] 009 [place] 2021-12-12 2021-12-13 Emergency X Bill COLES [facility] ERT [id number] Univers 23:53:00 01:52:00 ity of [facility] 2021-12-12 2021-12-13 Emergency Bill Coles [facility] 1.2.840.114 [id number] Univers 23:53:00 01:52:00 Kiersten BULLOCK 350.1.13.10 i ty of [place] [id number] [facility] 084 [place] 2021-11-20 2021-11-20 Network Programmer [facility] UNIVERSIT 1.2.840.114 [id number] Univers 09:45:00 10:00:00 Visit [facility] 350.1.13.10 ity of [place] 4[place] [id number] [facility] 316 [place] 2021-11-20 2021-11-20 Office [facility] 1.2.319.435 [id number] Univers 08:30:00 09:00:00 Visit [facility] 350.1.13.10 i ty of [facility] 4.2.7.[place] [id number] [facility] 089 [place] 2021-11-20 2021-11-20 Outpatient [facility] [id number] Univers 08:30:00 08:30:00 [facility] 2021-11-20 2021-11-20 Outpatient R [facility] [id number] Univers 08:30:00 08:30:00 SANTIAGO barbosa [facility] 2021-11-20 2021-11-20 Outpatient R RONALD [facility] [id number] Univers 08:30:00 08:30:00 SANTIAGO barbosa [facility] 2021-11-20 2021-11-20 Outpatient R RONALD [facility] [id number] Univers 08:30:00 08:30:00 SANTIAGO barbosa [facility] 2021-10-24 2021-10-24 Emergency X WALKER [facility] ERT [id number] Univers 16:27:00 22:26:00 CHARITY charlie [facility] 2021-10-24 2021-10-24 Emergency X WALKER [facility] ERT [id number] Univers 16:27:00 22:26:00 CHARITY charlie [facility] 2021-10-24 2021-10-24 Emergency Reilly Means [facility] 1.2.840. 114 [id number] Univers 16:27:00 22:26:00 Charity Mcallister [place] 350.1.13.10 ity [facility] 4.2.7.2.686 [facility] [id number] [address] 2021-10-23 2021-10-24 Emergency X WALKER [facility] ERT [id number] Univers 20:22:00 02:57:00 CHARITY charlie [facility] 2021-10-23 2021-10-24 [facility] 1.2.890.623 [id number] Univers 20:22:00 02:57:00 Charity Gonzales [place] 350.1.13.10 ity [facility] 4.2.7.2.686 [facility] [id number] [address] 2021-09-07 2021-09-07 Outpatient R SELF, [facility] [id number] Univers 08:00:00 08:00:00 GADIEL barbosa o f [facility] 2021-09-07 2021-09-07 Outpatient R SELF, [facility] [id number] Univers 08:00:00 08:00:00 GADIEL ity o f [facility] 2021-08-21 2021-08-21 Outpatient R [facility] [id number] Univers 10:45:00 10:45:00 SANTIAGO barbosa [facility] 2021-08-21 2021-08-21 Network Programmer [place] Cardenas 1.2.840.1 [id number] Univers 10:45:00 10:45:00 Visit [facility] 84993.1.1 ity of 3.104.2.7 [place] .3.819587 Medica l .8 [place] 2021-08-21 2021-08-21 Office Ronald, 1.2.840.6 [id number] Univers 08:30:00 09:00:00 Visit [place] 66838.1.1 ity of 3.104.2.7 [place] .3.986268 Medica l .8 [place] 2021-08-21 2021-08-21 Office [facility], [facility] 1.2.901.642 [id number] Univers 08:30:00 09:00:00 Visit [place] [facility] 350.1.13.10 i ty of [place] 4[place] [id number] Medi porfirio 089 [place] 2021-08-21 2021-08-21 Outpatient R [facility] [id number] Univers 08:30:00 08:30:00 SANTIAGO barbosa [facility] 2021-08-21 2021-08-21 Travel 1.2.840.1 1.2.715.653 [id number] Univers 00:00:00 00:00:00 37376.1.1 350.1.13.10 ity of 3.104.2.7 4.[place].7.3.698 [place] .3.085816 084.8 Medica l .8 [place] 2021-08-14 2021-08-14 Telephone East, 1.2.840.5 [id number] Univers 00:00:00 00:00:00 [place] 02191.1.1 ity of 3.104.2.7 [place] .3.950801 Medica l .8 [place] 2021-08-13 2021-08-13 Telephone [place], 1.2.840.1 [id number] Univers 00:00:00 00:00:00 [place] 78976.1.1 [facility] 3.104.2.7 [facility]3.599672 [place] [address] [place] 2021-08-11 2021-08-11 Outpatient Marika [facility] [id number] Univers 08:00:00 08:00:[address] [facility] 2021-08-05 2021-08-05 Inpatient WINTER Leal OUTD [id number] [facility] 05:24:00 05:24:00 Mike 31 [facility] 2021-07-20 2021-07-20 Outpatient Marika [facility] [id number] [facility] 10:00:00 10:00:00 [facility] 2021-07-14 2021-07-14 Office Pankaj, UTP 6400 1.2.840.114 [id number] [place] 08:45:00 09:34:[address] 350.1.13.58 Health 9.2.7.2.686 [id number] 1 2021-07-09 2021-07-09 Telephone [facility], UTP 6400 1.2.840.114 [id number] [place] 00:00:00 00:00:[address] 350.1.13.58 Health 9.2.7.2.686 [id number] 1 2021-07-09 2021-07-09 Telephone [facility], UTP 6400 1.2.840.114 [id number] [place] 00:00:00 00:00:[address] 350.1.13.58 Health 9.2.7.2.686 [id number] 1 2021-07-03 2021-07-03 Outpatient Marika [facility] [id number] Univers 08:00:00 08:00:[address] [facility] 2021-06-17 2021-06-17 Inpatient WINTER Leal INTE.02 [id number] [facility] 10:56:00 14:36:00 Mike 47 [facility] 2021-06-15 2021-06-15 Outpatient R SELF, [facility] [id number] Univers 10:15:00 11:07:21 GADIEL rodas [facility] 2021-06-15 2021-06-15 Outpatient R SELF, [facility] [id number] Univers 10:15:00 10:15:00 GADIEL barbosa o clark [facility] 2021-06-15 2021-06-15 Outpatient R SELF, [facility] [id number] Univers 10:15:00 10:15:00 GADIEL rodas [facility] 2021-06-15 2021-06-15 Orders Doctor 1.2.840.4 [id number] Univers 00:00:00 00:00:00 Only Unassigned, 26855.1.1 ity of [place] 3.104.2.7 [place] .3.590327 Medica l .8 [place] 2021-06-15 2021-06-15 Travel 1.2.840.1 1.2.956.913 [id number] Univers 00:00:00 00:00:00 63653.1.1 350.1.13.10 ity of 3.104.2.7 4.2.7.3.698 [place] .3.781072 084.8 Medica l .8 [place] 2021-06-11 2021-06-11 Refill [place], UNIVERSIT 1.2.294.979 [id number] Univers 00:00:00 00:00:00 [facility] 350.1.13.10 i ty of [place] [id number] Medi porfirio 089 [place] 2021-06-11 2021-06-11 Refill [place], 1.2.840.1 [id number] Univers 00:00:00 00:00:00 [place] 13843.1.1 ity of 3.104.2.7 [place] .3.184054 Medica l .8 [place] 2021-06-05 2021-06-05 Outpatient R EAST, [facility] [id number] Univers 09:00:00 09:00:00 SANTIAGO barbosa of [facility] 2021-06-02 2021-06-02 Telephone [place], UNIVERSIT 1.2.840.114 [id number] Univers 00:00:00 00:00:00 [place] [facility]ALTH 350.1.13.10 i ty of [facility] 4[place].2.[place] [phone] [facility] 089 [place] 2021-06-02 2021-06-02 Telephone [place], 1.2.840.6 [id number] Univers 00:00:00 00:00:00 [place] 86148.1.1 ity of 3.104.2.7 [place] .3.348289 Medica l .8 [place] 2021-05-29 2021-05-29 Telephone [place], 1.2.840.4 [id number] Univers 00:00:00 00:00:00 [place] 36373.1.1 ity of 3.104.2.7 [place] .3.071267 Medica l .8 [place] 2021-05-29 2021-05-29 Telephone [place], 1.2.840.6 [id number] Univers 00:00:00 00:00:00 [place] 78453.1.1 ity of 3.104.2.7 [place] .3.346539 Medica l .8 [place] 2021-05-25 2021-05-25 Outpatient R RODO, [facility] [id number] Univers 08:00:00 08:00:00 GADIEL vogel f [facility] 2021-04-29 2021-04-29 Outpatient R LALA, [facility] [id number] Univers 08:00:00 08:00:00 NIKOLAI barbosa [place] [facility] 2021-04-28 2021-04-28 Telephone Hematporay, UTP 6400 1.2.840.114 [id number] [place] 00:00:00 00:00:[address] 350.1.13.58 Health 9.2.7.2.686 [id number] 1 2021-04-28 2021-04-28 Telephone Chihara, 1.2.840.8 [id number] 21 [id number] Methodi 00:00:00 00:00:[address] 3.430.2.7 Hospit a .3.616405 l .8 2021-03-31 2021-03-31 Orders Carol Ann, 1.2.840.1 [id number] 21 [id number] Methodi 00:00:00 00:00:00 Only Sarai Lieberman 23744.1.1 979 s t 3.430.2.7 Hospit a .3.623316 l .8 2021-03-30 2021-03-30 Outpatient R RODO, [facility] [id number] Univers 08:45:00 08:45:00 GADIEL rodas [facility] 2021-03-24 2021-03-24 Telephone Jailyn, 1.2.840.8 [id number] 21 [id number] Methodi 00:00:00 00:00:[address] 3.430.2.7 Hospit a .3.131301 l .8 2021-02-13 2021-02-13 Telephone Ronald, 1.2.840.9 [id number] 876 80185 Univers 00:00:00 00:00:00 Santiago 09164.1.1 ity of 3.104.2.7 [place] 3.642327 Medica l .8 [place] 2021-01-28 2021-01-28 Outpatient R LALA, [facility] [id number] Univers 08:45:00 09:37:00 NIKOLAI barbosa of [facility] 2021-01-28 2021-01-28 Travel 1.2.840.1 1.2.642.465 3063 9777 Univers 00:00:00 00:00:00 49905.1.1 350.1.13.10 ity of 3.104.2.7 4.[place].7.3.698 [place] .3.981322 084.8 Medica l .8 [place] 2021-01-19 2021-01-19 Telephone Prabhu, 1.2.840.1 [id number] 2100 979497 Methodi 00:00:00 00:00:[address] 3.430.2.7 Hospit a .3.984513 l .8 2021-01-04 2021-01-04 Dmitry Bass, 1.2.840.4 [id number] 82054 696 Univers 00:00:00 00:00:00 (Out) Dagoberto H 90230.1.1 ity of 3.104.2.7 [place] .3.861715 Medica l .8 Branch 2021-01-04 2021-01-04 Letter Shelia, 1.2.840.7 [id number] 11366 696 Univers 00:00:00 00:00:00 (Out) Dagoberto H 45596.1.1 ity of 3.104.2.7 [place] .3.632118 Medica l .8 Branch 2021-01-03 2021-01-03 Dmitry Bass, 1.2.840.1 [id number] 09610 790 Univers 00:00:00 00:00:00 (Out) Dagoberto H 01748.1.1 ity of 3.104.2.7 [place] .3.717109 Medica l .8 Branch 2021-01-03 2021-01-03 Dmitry Bass, 1.2.840.8 [id number] 94176 790 Univers 00:00:00 00:00:00 (Out) Dagoberto H 36371.1.1 ity of 3.104.2.7 [place] .3.194636 Medica l .8 [place] 2021-01-02 2021-01-02 Outpatient R [facility] [id number] 786 Univers 13:40:00 13:40:00 ity of [facility] 2021-01-02 2021-01-02 Laboratory Cuba Franks 1.2.840.1 [id number] [id number] Univers 12:14:13 12:57:34 Only Lab, [place] I 73558.1.1 ity of 3.104.2.7 [place] .3.947604 Medica l .8 [place] 2021-01-02 2021-01-02 Laboratory [place] Franks 1.2.840.3 [id number] [id number] Univers 12:14:13 12:57:34 Only Lab, Adc Fam [place]ob I 85033.1.1 ity of 3.104.2.7 [place] .3.812246 Medica l .8 [place] 2021-01-02 2021-01-02 Travel 1.2.840.1 1.2.872.192 6351 2306 Univers 00:00:00 00:00:00 16633.1.1 350.1.13.10 ity of 3.104.2.7 4.[place].7.3.698 [place] .3.096084 084.8 Medica l .8 Branch 2021-01-02 2021-01-02 Letter Doctor 1.2.840.5 [id number] 41295 948 Univers 00:00:00 00:00:00 (Out) Unassigned, 80001.1.1 ity of [place] 3.104.2.7 [place] .3.167393 Medica l .8 [place] 2021-01-02 2021-01-02 Letter Doctor 1.2.840.4 [id number] 11746 946 Univers 00:00:00 00:00:00 (Out) Unassigned, 39195.1.1 ity of [place] 3.104.2.7 [place] .3.875459 Medica l .8 [place] 2021-01-02 2021-01-02 Travel 1.2.840.1 1.2.521.539 1813 2306 Univers 00:00:00 00:00:00 03131.1.1 350.1.13.10 ity of 3.104.2.7 4.2.7.3.698 [place] .3.149549 084.8 Medica l .8 Branch 2021-01-02 2021-01-02 Letter Doctor 1.2.840.9 [id number] 40525 948 Univers 00:00:00 00:00:00 (Out) Unassigned, 34049.1.1 ity of [place] 3.104.2.7 [place] .3.459700 Medica l .8 [place] 2021-01-022021-01-02 Letter Doctor 1.2.840.3 [id number] 53792 946 Univers 00:00:00 00:00:00 (Out) Unassigned, 94623.1.1 ity of [place] 3.104.2.7 [place] .3.809325 Medica l .8 Branch 2020-12-22 2020-12-22 Telephone Beltran, 1.2.840.5 [id number] 862 06168 Univers 00:00:00 00:00:00 Eligionda R 92322.1.1 i ty of 3.104.2.7 [place] .3.966192 Medica l .8 Branch 2020-12-22 2020-12-22 Telephone Beltran, 1.2.840.8 [id number] 862 58703 Univers 00:00:00 00:00:00 Eligionda R 90022.1.1 i ty of 3.104.2.7 [place] .3.678722 Medica l .8 [place] 2020-12-12 2020-12-12 Office Hematpour, UTP 6400 1.2.840.114 12 [id number] [place] 07:42:02 08:18:[address] 350.1.13.58 Health 9.2.7.2.686 176.7383864 1 2020-12-12 2020-12-12 Office Hematpour, UTP 6400 1.2.840.114 12 [id number] 07:42:02 08:18:[address] 350.1.13.58 9.2.7.2.686 535.2395326 1 2020-12-09 2020-12-09 Telephone Meisenbach, 1.2.840.1 [id number] Methodi 00:00:00 00:00:00 Sarai Lieberman 32093.1.1 316 s t 3.430.2.7 Hospit a .3.838577 l .8 2020-12-08 2020-12-08 [facility], 1.2.840.1 [id number] 2100 083018 Methodi 12:35:54 23:59:00 Encounter Ray 14146.1.[address] 3.430.2.7 Hospit a .3.459740 l .8 2020-12-08 2020-12-08 Lab Jailyn, 1.2.840.1 [id number] 70263 31841 Methodi 17:25:00 17:30:[address] 3.430.2.7 Hospit a .3.574538 l .8 2020-12-08 2020-12-08 Office Jailyn, 1.2.840.1 [id number] 98190 82334 Methodi 10:30:00 11:39:56 Visit Ray 50265.1.[address] 3.430.2.7 Hospit a .3.432427 l .8 2020-12-08 2020-12-08 Travel 1.2.840.1 1.2.441.561 0653 172593 Methodi 00:00:00 00:00:[address] 3.430.2.7 0.2.7.3.698 Ho spita .3.415941 084.8 l .8 2020-12-02 2020-12-02 Network Programmer [facility] 1.2.840.114 8 [id number] 10:20:06 10:36:19 Visit [facility] 350.1.13.10 CLINICS 4.2.7.2.686 182.0918277 316 2020-12-02 2020-12-02 Network Programmer Santiago Cardenas 1.2.840.1 [id number] [facility] 10:20:06 10:36:19 Visit [facility] 41685.1.1 ity of 3.104.2.7 [place] .3.271339 Medica l .8 Branch 2020-12-02 2020-12-02 Network Programmer [place] Cardenas 1.2.840.1 [id number] [facility] 10:20:06 10:36:19 Visit [facility] 36502.1.1 ity of 3.104.2.7 [place] .3.063254 Medica l .8 Branch 2020-12-02 2020-12-02 Office Ronald, 1.2.840.8 [id number] 72159 528 Univers 08:31:37 09:01:37 Visit Santiago 23264.1.1 ity of 3.104.2.7 [place] .3.599832 Medica l .8 [place] 2020-12-02 2020-12-02 Outpatient R [facility] [id number] 304 Univers 09:00:00 09:00:00 [facility] 2020-11-25 [facility] 1.2.840.114 [id number] 11:06:30 11:58:14 Visit Robbi Hairston OPERATING ROOM ORDERLY 350.1.13.10 REGIONAL 4.2.7.2.686 MATERNAL 699.1403224 & [address] 2020-11-25 2020-11-25 Office Beltran, 1.2.840.8 [id number] 89124 865 Univers 11:06:30 11:58:14 Visit Devinaleshia Hairston 80135.1.1 i ty of 3.104.2.7 [place] .3.169581 Medica l .8 [place] 2020-11-25 2020-11-25 Office Devin, 1.2.840.5 [id number] 10414 865 Univers 11:06:30 11:58:14 Visit Robbi Marika 04328.1.1 i ty of 3.104.2.7 [place] .3.302380 Medica l .8 [place] 2020-11-25 2020-11-25 Outpatient R [facility] [id number] 288 Univers 11:00:00 11:00:00 ity of [facility] 2020-11-25 2020-11-25 Refill [facility], UN[facility]ERS[facility] 1.2.327.717 9792 4592 00:00:00 00:00:00 [facility] 350.1.13.10 [facility] 4.2.7.2.686 328.8834607 089 2020-11-25 2020-11-25 Telephone Devin, 1.2.840.7 [id number] 855 11407 Univers 00:00:00 00:00:00 Roshunda R 51316.1.1 i ty of 3.104.2.7 [place] .3.377311 Medica l .8 [place] 2020-11-25 2020-11-25 Telephone [facility] 1.2.302.459 6083 0821 00:00:00 00:00:00 Eligiomeredith R OPERATING ROOM ORDERLY 350.1.13.10 REGIONAL 4.2.7.2.686 MATERNAL 747.0358457 & CHILD [address] [place] [address] 2020-11-25 2020-11-25 Refill [facility], 1.2.840.6 [id number] 78909 592 Univers 00:00:00 00:00:00 Santiago 23361.1.1 ity of 3.104.2.7 [place] .3.564123 Medica l .8 [place] 2020-11-25 2020-11-25 Travel 1.2.840.1 1.2.538.457 0842 0247 Univers 00:00:00 00:00:00 11603.1.1 350.1.13.10 ity of 3.104.2.7 4.2.7.3.698 [place] .3.206011 084.8 Medica l .8 [place] 2020-11-25 2020-11-25 Orders Doctor 1.2.840.6 [id number] [id number] 064 Univers 00:00:00 00:00:00 Only Unassigned, 77936.1.1 ity of [place] 3.104.2.7 [place] .3.098952 Medica l .8 [place] 2020-11-25 2020-11-25 [facility], 1.2.840.4 [id number] 855 36912 Univers 00:00:00 00:00:00 Eligionda R 37489.1.1 i ty of 3.104.2.7 [place] .3.685650 Medica l .8 [place] 2020-11-25 2020-11-25 Refill [facility], 1.2.840.1 [id number] 46416 592 Univers 00:00:00 00:00:00 Santiago 58248.1.1 ity of 3.104.2.7 [place] .3.048340 Medica l .8 Branch 2020-11-25 2020-11-25 Travel 1.2.840.1 1.2.368.190 3806 0247 Univers 00:00:00 00:00:00 84224.1.1 350.1.13.10 ity of 3.104.2.7 4.2.7.3.698 [place] .3.716835 084.8 Medica l .8 Branch 2020-11-25 2020-11-25 Orders Doctor 1.2.840.7 [id number] 21537 064 Univers 00:00:00 00:00:00 Only Unassigned, 16487.1.1 ity of [place] 3.104.2.7 [place] .3.108970 Medica l .8 Branch 2020-11-14 2020-11-14 Abstract Rodas, 1.2.840.1 [id number] 09270 47508 Methodi 00:00:00 00:00:[address] 3.430.2.7 Hospit a .3.358195 l .8 2020-11-14 2020-11-14 Telephone Rodas, 1.2.840.1 [id number] 2100 358294 Methodi 00:00:00 00:00:[address] 3.430.2.7 Hospit a .3.727552 l .8 2020-11-12 2020-11-12 Outpatient [facility] [id number] Univers 08:30:00 08:30:00 SANTIAGO itcharlie of [facility] 2020-11-07 2020-11-07 Telephone Agustina Ortiz 6400 1.2.840.11 4 [id number] [place] 00:00:00 00:00:[address] 350.1.13.58 Health 9.2.7.2.686 619.9965595 1 2020-11-07 2020-11-07 Telephone KIMBERLEY Ortiz 6400 1.2.840.114 124 [id number] 00:00:00 00:00:[address] 350.1.13.58 9.2.7.2.686 645.9815826 1 2020-10-31 2020-10-31 Office KIMBERLEY Layton 6400 1.2.840.114 12 [id number] [place] 07:54:00 09:45:[address] 350.1.13.58 Health 9.2.7.2.686 931.1887555 1 2020-10-30 2020-10-30 Abstract Rody Maguire UTP 6400 1.2.840.1 14 [id number] [place] 00:00:00 00:00:[address] 350.1.13.58 Health 9.2.7.2.686 [id number] 1 2020-10-29 2020-10-29 Refill East, 1.2.840.0 [id number] 79845 400 Univers 00:00:00 00:00:00 Santiago 17057.1.1 ity of 3.104.2.7 [place] .3.857200 Medica l .8 Branch 2020-10-29 2020-10-29 Refill East, 1.2.840.6 [id number] 99102 400 Univers 00:00:00 00:00:00 Santiago 81871.1.1 ity of 3.104.2.7 [place] .3.644474 Medica l .8 Branch 2020-10-27 2020-10-27 Telephone Jailyn, 1.2.840.7 [id number] 21 [id number] Methodi 00:00:00 00:00:[address] 3.430.2.7 Hospit a .3.787784 l .8 2020-10-24 2020-10-24 Telephone Clark, 1.2.840.1 [id number] 2100 942560 Methodi 00:00:00 00:00:[address] 3.430.2.7 Hospit a .3.762077 l .8 2020-10-22 2020-10-22 Outpatient R SELF, [facility] [id number] [place] [facility] 13:00:00 13:00:00 GADIEL rodas [facility] 2020-10-22 2020-10-22 Travel 1.2.840.1 1.2.173.044 1771 3839 Univers 00:00:00 00:00:00 38518.1.1 350.1.13.10 ity of 3.104.2.7 4.2.7.3.698 [place] .3.513391 084.8 Medica l .8 [place] 2020-10-22 2020-10-22 Travel 1.2.840.1 1.2.382.945 6220 3839 Univers 00:00:00 00:00:00 20031.1.1 350.1.13.10 ity of 3.104.2.7 4.2.7.3.698 [place] .3.175694 084.8 Medica l .8 [place] 2020-10-13 2020-10-13 Outpatient R SELF, [facility] [id number] Univers 08:45:00 08:45:00 GADIEL rodas [facility] 2020-10-06 2020-10-12 Telemedici Chihara, 1.2.840.1 [id number] 21 [id number] Methodi 15:30:00 00:08:46 ne Ray 27757.1.[address] 3.430.2.7 Hospit a .3.551243 l .8 2020-09-30 2020-09-30 Telephone Chihara, 1.2.840.0 [id number] 21 [id number] Methodi 00:00:00 00:00:[address] 3.430.2.7 Hospit a .3.254820 l .8 2020-09-21 2020-09-21 Travel 1.2.840.1 1.2.371.104 4419 306258 Methodi 00:00:00 00:00:[address] 3.430.2.7 0.2.7.3.698 Ho spita .3.452278 084.8 l .8 2020-09-06 2020-09-06 [facility] 1.2.840.1 [id number] 54800 16970 Methodi 17:42:30 23:59:[address] 3.430.2.7 Hospit a .3.545016 l .8 2020-09-06 2020-09-06 [facility], 1.2.840.1 [id number] 2100 409304 Methodi 16:50:00 17:41:00 Encounter Ray [address]288.1.[address] 3.430.2.7 Hospit a .3.550697 l .8 2020-09-05 2020-09-05 [facility], 1.2.840.1 [id number] 2100 745544 Methodi 09:17:00 19:45:00 Encounter Ray [address]12.1.[address] 3.430.2.7 Hospit a .3.444002 l .8 2020-09-05 2020-09-05 [facility], 1.2.840.1 [id number] 94899 97619 Methodi 11:30:00 13:15:[address] 3.430.2.7 Hospit a .3.165008 l .8 2020-09-05 2020-09-05 Anesthesia [facility], 1.2.840.1 [id number] 501 [id number] Methodi 11:27:00 12:20:00 Event Anupamwathi 13030.1.1 243 s t V. 3.430.2.7 Hospit a .3.102139 l .8 2020-09-05 2020-09-05 Travel 1.2.840.1 1.2.047.137 7911 772221 Methodi 00:00:00 00:00:[address] 3.430.2.7 0.2.7.3.698 Ho spita .3.185018 084.8 l .8 2020-09-04 2020-09-04 Telephone Carol Ann, 1.2.840.1 [id number] Methodi 00:00:00 00:00:00 Sarai Lieberman 45103.1.1 762 s t 3.430.2.7 Hospit a .3.375267 l .8 2020-09-02 2020-09-02 Telephone Carol Ann, 1.2.840.6 [id number] Methodi 00:00:00 00:00:00 Sarai Lieberman 52450.1.1 344 s t 3.430.2.7 Hospit a .3.276457 l .8 2020-08-29 2020-08-30 [facility] [id number] [facility] 10:20:00 14:10:00 Outpatient r Edmond 00 l [facility] 2020-08-29 2020-08-30 Outpatient HEMATPOUR, [facility] CAR 7500 [facility] 05:20:00 09:10:00 BEVERLY 2020-08-06 2020-08-06 Office [place], 1.2.840.8 [id number] 416 Univers 08:03:23 09:17:49 Visit Santiago 63343.1.1 ity of 3.104.2.7 [place] .3.005267 Medica l .8 [place] 2020-08-06 2020-08-06 Outpatient R EAST, [facility] [id number] Univers 08:30:00 08:30:00 SANTIAGO ity of [facility] 2020-07-14 2020-07-[address] [facility], [facility] [id number] Univers 09:30:00 09:30:00 GADIEL ity o f [facility] 2020-07-14 2020-07-14 Travel 1.2.840.1 1.2.727.703 7665 2575 Univers 00:00:00 00:00:00 95228.1.1 350.1.13.10 ity of 3.104.2.7 4.2.7.3.698 [place] .3.515977 084.8 Medica l .8 [place] 2020-07-14 2020-07-14 Orders Doctor 1.2.840.7 [id number] 309 Univers 00:00:00 00:00:00 Only Unassigned, 04918.1.1 ity of [place] 3.104.2.7 [place] .3.620301 Medica l .8 [place] 2020-06-16 2020-06-[address] [facility] [id number] Univers 08:00:00 08:00:00 GADIEL barbosa o f [facility] 2020-06-06 2020-06-06 Telephone East, 1.2.840.3 [id number] 809 04116 Univers 00:00:00 00:00:00 Santiago 79914.1.1 ity of 3.104.2.7 [place] .3.736646 Medica l .8 [place] 2020-06-04 2020-06-04 Network Programmer Santiago Cardenas 1.2.840.1 [id number] Univers 09:31:58 09:40:12 Visit [facility] 79232.1.1 ity of 3.104.2.7 [place] .3.563852 Medica l .8 [place] 2020-06-04 2020-06-04 Office [facility], [facility] 1.2.529.615 2793 9729 Univers 08:13:41 09:28:25 Visit Santiago [facility] 350.1.13.10 i ty of CLINICS 4.2.7.2.686 [place] 940.3743202 [facility] 089 [place] 2020-06-04 2020-06-04 Outpatient R [facility] [id number] Univers 08:30:00 08:30:00 SANTIAGO barbosa of [facility] 2020-06-04 2020-06-04 Orders Doctor 1.2.840.5 [id number] 00434 079 Univers 00:00:00 00:00:00 Only Unassigned, 37733.1.1 ity of [place] 3.104.2.7 [place] .3.579590 Medica l .8 [place] 2020-05-19 2020-05-19 Telephone East, 1.2.840.3 [id number] 804 16694 Univers 00:00:00 00:00:00 Santiago 56678.1.1 ity of 3.104.2.7 [place] .3.267988 Medica l .8 Branch 2020-04-24 2020-04-24 Telephone East, 1.2.840.5 [id number] 799 25304 Univers 00:00:00 00:00:00 Santiago 69846.1.1 ity of 3.104.2.7 [place] .3.571973 Medica l .8 Branch 2020-04-14 2020-04-14 Outpatient R [facility]AST, [facility] [id number] Univers 09:00:00 09:00:00 SANTIAGO ity of [facility] 2020-04-14 2020-04-14 Telephone [place], 1.2.840.8 [id number] 797 03569 Univers 00:00:00 00:00:00 Santiago 72577.1.1 ity of 3.104.2.7 [place] .3.050689 Medica l .8 [place] 2020-03-31 2020-03-31 Outpatient R [facility]AST, [facility] [id number] Univers 08:30:00 08:30:00 SANTIAGO ity of [facility] 2020-03-03 2020-03-03 Outpatient R SELF, [facility] [id number] Univers 08:00:00 08:00:00 GADIEL barbosa o f [facility] 2020-03-03 2020-03-03 Outpatient R SELF, [facility] [id number] Univers 08:00:00 08:00:00 GADIEL maciely o f [facility] 2020-03-03 2020-03-03 Travel 1.2.840.1 1.2.721.620 2965 5480 Univers 00:00:00 00:00:00 39316.1.1 350.1.13.10 ity of 3.104.2.7 4.2.7.3.698 [place] .3.788225 084.8 Medica l .8 Branch 2020-02-06 2020-02-06 Telephone East, 1.2.840.5 [id number] 781 [id number] Univers 00:00:00 00:00:00 Santiago 48367.1.1 ity of 3.104.2.7 [place] .3.181790 Medica l .8 Branch 2020-01-26 2020-01-26 Emergency Caridad, 1.2.840.2 [id number] 779 70745 Univers 10:03:00 13:05:00 Cynise 23488.1.1 ity of 3.104.2.7 [place] .3.068117 Medica l .8 [place] 2020-01-26 2020-01-26 Travel 1.2.840.1 1.2.439.799 4508 0120 Univers 00:00:00 00:00:00 07526.1.1 350.1.13.10 ity of 3.104.2.7 4.2.7.3.698 [place] .3.863811 084.8 Medica l .8 [place] 2020-01-25 2020-01-25 Outpatient R EAST, [facility] [id number] Univers 08:30:00 08:30:00 SANTIAGO ity of [facility] 2020-01-25 2020-01-25 Telemedici [place], 1.2.840.2 [id number] Univers 07:36:49 08:06:49 ne Visit Santiago 36140.1.1 ity of 3.104.2.7 [place] .3.187477 Medica l .8 [place] 2020-01-16 2020-01-16 [facility] [id number] Univers 08:00:00 08:00:00 SANTIAGO ity of [facility] 2020-01-16 2020-01-16 Telephone East, 1.2.840.6 [id number] Univers 00:00:00 00:00:00 Santiago 83615.1.1 ity of 3.104.2.7 [place] .3.998039 Medica l .8 [place] 2020-01-14 2020-01-14 Outpatient R SELF, [facility] [id number] Univers 08:00:00 08:00:00 GADIEL vogel f [facility] 2019-12-31 2019-12-31 Outpatient R SELF, [facility] [id number] Univers 08:45:00 08:45:00 GADIEL vogel f [facility] 2019-10-17 2019-10-17 Outpatient R [facility], [facility] [id number] Univers 08:30:00 08:30:00 SANTIAGO itcharlie [facility] 2019-10-12 2019-10-12 Outpatient R [facility]AST, [facility] [id number] Univers 13:00:00 13:00:00 SANTIAGO ity [facility] 2019-10-12 2019-10-12 Telemedici [place], 1.2.840.0 [id number] Univers 07:38:30 08:08:30 ne Visit Santiago 67233.1.1 ity of 3.104.2.7 [place] .3.582432 Medica l .8 [place] 2019-10-08 2019-10-08 Outpatient R SELF, [facility] [id number] Univers 10:15:00 10:15:00 GADIEL barbosa o f [facility] 2019-10-03 2019-10-03 Case Xiao, 1.2.840.8 [id number] 383 Univers 00:00:00 00:00:00 Management Michael Corbin 28094.1.1 i ty of 3.104.2.7 [place] .3.782674 Medica l .8 [place] 2019-09-27 2019-09-27 Telephone East, 1.2.840.6 [id number] 755 [id number] Univers 00:00:00 00:00:00 Santiago 02732.1.1 ity of 3.104.2.7 [place] .3.400624 Medica l .8 [place] 2019-09-04 2019-09-04 Refill [place], 1.2.840.6 [id number] Univers 00:00:00 00:00:00 Santiago 52854.1.1 ity of 3.104.2.7 [place] .3.015914 Med[facility] .8 [place] 2019-07-24 2019-07-24 Outpatient R EAST, [facility] [id number] Univers 08:30:00 08:30:00 [place] ity [facility] 2019-07-17 2019-07-17 Outpatient R EAST, [facility] [id number] Univers 10:00:00 10:00:00 [place] ity [facility] 2019-06-15 2019-06-15 Telephone East, 1.2.840.3 [id number] Univers 00:00:00 00:00:00 [place] 00225.1.1 ity of 3.104.2.7 [place] .3.803922 Med[facility] .8 [place] 2019-06-13 2019-06-13 Telephone Team, [facility] 1.2.840.1 [id number] Univers 00:00:00 00:00:00 Health 68192.1.1 [place] .3.[place] [facility] [facility] [place] 2019-05-10 2019-05-10 Refill Ronald, 1.2.840.7 [id number] Univers 00:00:00 00:00:00 [place] 11574.1.1 ity of 3.104.2.7 [place] .3.257506 [facility] .[facility] [place] 2019-05-09 2019-05-09 Refill Ronald, 1.2.840.1 [id number] Univers 00:00:00 00:00:00 [place] 34612.1.1 ity of 3.104.2.7 [place] .3.859458 [facility] .[facility] [place] 2019-04-30 2019-04-30 Outpatient R SELF, [facility] [id number] Univers 10:15:00 10:33:05 GADIEL rodas [facility] 2019-04-18 2019-04-18 Network Programmer [place] Cardenas 1.2.840.1 [id number] Univers 10:00:39 10:44:31 Visit [facility] 84240.1.1 ity of 3.104.2.7 [place] .3.251971 Medica l .8 [place] 2019-04-18 2019-04-18 Outpatient R RONALD [facility] [id number] Univers 10:00:00 10:44:31 SANTI[place]O itcharlie of [facility] 2019-04-18 2019-04-18 Office Ronald, 1.2.840.8 [id number] Univers 08:27:44 09:53:27 Visit [place] 18784.1.1 ity of 3.104.2.7 [place] .3.385332 Medica [facility] .[facility] [place] 2019-04-18 2019-04-18 Orders Doctor 1.2.840.2 [id number] Univers 00:00:00 00:00:00 Only Unassigned, 87483.1.1 ity of [place] 3.104.2.7 [place] .3.887083 Medica l .8 [place] 2019-04-11 2019-04-11 Refill East, 1.2.840.1 [id number] Univers 00:00:00 00:00:00 [place] 64376.1.1 ity of 3.104.2.7 [place] .3.347368 Med[facility] l .8 [place] 2019-04-09 2019-04-09 Refill East, 1.2.840.4 [id number] Univers 00:00:00 00:00:00 [place] 42503.1.1 ity of 3.104.2.7 [place] .3.845982 [facility] .[facility] [place] 2019-04-03 2019-04-03 Telephone Team, [facility] 1.2.840.3 [id number] Univers 00:00:00 00:00:00 Health 01746.1.1 [place].2.[place] .3.8[place]95 [facility] [place] 2019-03-27 2019-03-27 Telephone Self, 1.2.840.4 [id number] Univers 00:00:00 00:00:00 Gadiel 17804.1.1 ity of 3.104.2.7 [place] .3.468429 [facility] .[facility] [place] 2019-01-17 2019-01-17 Office [facility], 1.2.840.7 [id number] Univers 07:37:21 10:32:51 Visit [place] 77381.1.1 ity of 3.104.2.7 [place] .3.473255 [facility] .[facility] [place] 2019-01-04 2019-01-12 Office Eveline Hansen 1.2.840.0 [id number] Univers 11:19:32 11:08:05 Visit Mariela 15580.1.1 ity of 3.104.2.7 [place] .3.866520 [facility] .[facility] [place] 2019-01-10 2019-01-10 Telephone Stanislav, 1.2.840.0 [id number] Univers 00:00:00 00:00:00 Eladio Inman 54521.1.1 ity of 3.104.2.7 [place] .3.748205 [facility] .[facility] [place] 2018-12-18 2018-12-18 Office Dallinaliviarafiq, 1.2.840.5 [id number] Univers 08:48:45 09:13:43 Visit Leyda 97486.1.1 it y of 3.104.2.7 [place] .3.334489 [facility] .[facility] [place] 2018-10-30 2018-10-30 Telephone East, 1.2.840.5 [id number] Univers 00:00:00 00:00:00 [place] 78403.1.1 ity of 3.104.2.7 [place] .3.272559 [facility] .[facility] [place] 2018-10-23 2018-10-23 Orders Doctor 1.2.840.4 [id number] Univers 00:00:00 00:00:00 Only Unassigned, 49821.1.1 ity of [place] 3.104.2.7 [place] .3.072821 [facility] .[facility] [place] 2018-10-23 2018-10-23 Nurse Selvin, 1.2.840.9 [id number] Univers 00:00:00 00:00:00 Triage Stefanie 98663.1.1 ity of 3.104.2.7 [place] .3.356875 [facility] .[facility] [place] 2018-10-23 2018-10-23 Telephone Self, 1.2.840.0 [id number] Univers 00:00:00 00:00:00 Gadiel 76157.1.1 ity of 3.104.2.7 [place] .3.137396 [facility] .[facility] [place] 2018-10-20 2018-10-20 Telephone Self, 1.2.840.6 [id number] Univers 00:00:00 00:00:00 Gadiel 01585.1.1 ity of 3.104.2.7 [place] .3.443270 Medica l .8 [facility] Results Test Description Test Time Test Comments Results Result Comments Source COMP. METABOLIC PANEL (74609) 2022-05-06 22:42:55 Test Item Value Reference Range Interpretation Comme nts NA (test code = 4155539395) 137 mmol/L 135-145 K (test code = 5805176795) 3.2 mmol/L 3.5-5.0 L CL (test code = 0439664143) 100 mmol/L 98-108 CO2 TOTAL (test code = 1936930890) 23 mmol/L 23-31 AGAP (test code = 3632003511) 2-16 BUN (test code = 6190115713) 41 mg/dL 7-23 H GLUCOSE (test code = 5897454959) 98 mg/dL 70-110 CREATININE (test code = 1.55 mg/dL 0.50-1.04 H [id number]) TOTAL BILI (test code = 0.8 mg/dL 0.1-1.6 8729183911) CALCIUM (test code = 3799221691) 8.3 mg/dL 8.6-10.6 L T PROTEIN (test code = 1275070001) 6.9 g/dL 6.3-8.2 ALBUMIN (test code = 9335547835) 3.9 g/dL 3.5-5.0 ALK PHOS (test code = 5220543204) 89 U/L 34-122 ALTv (test code = 1742-6) 101 U/L 5-35 H AST(SGOT) (test code = 3043997388) 203 U/L 13-40 H eGFR (test code = 2180642812) mL/min/1.73m2 KYLE (test code = KYLE) Association [...] tests). Lab Interpretation (test code = Abnormal 69250-0) [facility] WITH [id number] 22:33:52 Test Item Value Reference Range Interpretation Comments WBC (test code = See_Comment L [Automated 5990-2) message] The sy stem which generated this result transmitted reference range : 4.30 - 11.10 10*3/?L. The reference range was not used to interpret this result as normal/abnormal . RBC (test code = See_Comment [Automated 369-8) message] The sy stem which generated this [...] RDW-SD (test code = 46.3 fL 39.0-49.9 86235-4) RDW-CV (test code = 13.5 % 12.0-15.5 788-0) PLT (test code = See_Comment L [Automated 777-3) message] The sy stem which generated this result transmitted reference range : 166 - 358 10*3/ ?L. The reference r abbey was not used to interpret this result as normal/abnormal . MPV (test code = 9.5 fL 9.5-12.9 57443-0) NRBC/100 WBC (test See_Comment [Automat ed code = 5694013963) message] The system which generated this result transmitted reference range : 0.0 - 10.0 /100 WBCs. The refer ence range was not u sed to interpret th is result as normal/abnormal . NRBC x10^3 (test code See_Comment [Auto mated = 4849890977) message] The s ystem which generated this result transmitted reference range : 10*3/?L. The reference range was not used to interpret this result as normal/abnormal . GRAN MAT (NEUT) % 58.3 % (test code = 770-8) IMM GRAN % (test code 0.80 % = 5198239474) LYMPH % (test code = 28.1 % 736-9) MONO % (test code = 12.0 % 5905-5) EOS % (test code = 0.5 % 713-8) BASO % (test code = 0.3 % 706-2) GRAN MAT x10^3(ANC) 2.29 10*3/uL 1.88-7.09 (test code = 5553185144) IMM GRAN x10^3 (test 0.03 10*3/uL 0.00-0.06 code = 7688243834) LYMPH x10^3 (test code 1.10 10*3/uL 1.32-3.29 L = 731-0) MONO x10^3 (test code 0.47 10*3/uL 0.33-0.92 = 742-7) EOS x10^3 (test code = 0.03-0.39 L 711-2) BASO x10^3 (test code 0.01-0.07 = 704-7) Lab Interpretation Abnormal (test code = 24607-4) [facility] METABOLIC PANEL (NA, K, CL, CO2, GLUCOSE, BUN, CREATININE, CA)2022-04-22 21:43:42 Test Item Value Reference Range Interpretation Comments NA (test code = 142 mmol/L 135-145 8847310806) K (test code = 3.5 mmol/L 3.5-5.0 7668482758) CL (test code = 106 mmol/L 98-108 9444002323) CO2 TOTAL (test code = 26 mmol/L 23-31 1142315243) AGAP (test code = 2-16 6500605867) BUN (test code = 29 mg/dL 7-23 H 3926471944) GLUCOSE (test code = 84 mg/dL 70-110 5237027904) CREATININE (test code = 1.16 mg/dL 0.50-1.04 H 3446987920) CALCIUM (test code = 8.2 mg/dL 8.6-10.6 L 5895242506) eGFR (test code = mL/min/1.73m2 3440065909) KYEL (test code = KYLE) Association of Glomerular [...] tests). Lab Interpretation Abnormal (test code = 19347-1) [facility] WITH [id number] 21:33:01 Test Item Value Reference Range Interpretation [...] (test code = 50.7 fL 39.0-49.9 H 67624-9) RDW-CV (test code = 14.6 % 12.0-15.5 788-0) PLT (test code = See_Comment L [Automated 777-3) message] The sy stem which generated this result transmitted reference range : 166 - 358 10*3/ ?L. The reference r abbey was not used to interpret this result as normal/abnormal . MPV (test code = 8.8 fL 9.5-12.9 L 88939-6) NRBC/100 WBC (test See_Comment [Automat ed code = 5455285158) message] The system which generated this result transmitted reference range : 0.0 - 10.0 /100 WBCs. The refer ence range was not u sed to interpret th is result as normal/abnormal . NRBC x10^3 (test code See_Comment [Auto mated = 3498868076) message] The [employer] which generated this result transmitted reference range : 10*3/?L. The reference range was not used to interpret this result as normal/abnormal . GRAN MAT (NEUT) % 70.9 % (test code = 770-8) IMM GRAN % (test code 0.50 % = 6721375512) LYMPH % (test code = 17.4 % 736-9) MONO % (test code = 9.0 % 5905-5) EOS % (test code = 1.7 % 713-8) BASO % (test code = 0.5 % 706-2) GRAN MAT x10^3(ANC) 4.60 10*3/uL 1.88-7.09 (test code = 9068757923) IMM GRAN x10^3 (test 0.03 10*3/uL 0.00-0.06 code = 5155856195) LYMPH x10^3 (test code 1.13 10*3/uL 1.32-3.29 L = 731-0) MONO x10^3 (test code 0.58 10*3/uL 0.33-0.92 = 742-7) EOS x10^3 (test code = 0.11 10*3/uL 0.03-0.39 711-2) BASO x10^3 (test code 0.03 10*3/uL 0.01-0.07 = 704-7) Lab Interpretation Abnormal (test code = 46670-5) [id number]:01:07 Test Item Value Reference Range Interpretation Comments Blood Culture-Aerobic No organisms No growth Previo us (test code = 01266-1) isolated prelim inary verified result was Culture [...] Culture-Anaerobic isolated preliminar y (test code = 28730-5) verifi ed result was Culture In Progress [...] CDT Lab Interpretation Normal (test code = 62441-2) [facility] CULTURE [id number] 06:01:07 Test Item Value Reference Range Interpretation Comments Blood Culture-Aerobic No organisms No growth Previo us (test code = 60187-8) isolated prelim inary verified result was Culture [...] Culture-Anaerobic isolated preliminar y (test code = 22233-7) verifi ed result was Culture In Progress [...] CDT Lab Interpretation Normal (test code = 56969-0) [facility] CULTURE [id number] 06:01:07 Test Item Value Reference Range Interpretation Comments Blood Culture-Aerobic No organisms No growth Previo us (test code = 59449-0) isolated prelim inary verified result was Culture [...] Culture-Anaerobic isolated preliminar y (test code = 23369-7) verifi ed result was Culture In Progress [...] CDT Lab Interpretation Normal (test code = 68764-0) [facility] [id number] 10:49:10 Test Item Value Reference Range Interpretation Comments NT-proBNP (test code 2660 pg/mL See_Comment H [Autom ated = 7147314550) message] The system which generated this result transmitted reference range : <=125. The reference range was not used to interpret this result as normal/abnormal . KYLE (test code = KYLE) Biotin has been reported to cause a negative bias, interpret results relative to patient's use of biotin. Lab Interpretation Abnormal (test code = 48302-2) [facility] [id number] 10:49:10 Test Item Value Reference Range Interpretation Comments NT-proBNP (test code 2660 pg/mL See_Comment H [Autom ated = 8638956528) message] The system which generated this result transmitted reference range : <=125. The reference range was not used to interpret this result as normal/abnormal . KYLE (test code = KYLE) Biotin has been reported to cause a negative bias, interpret results relative to patient's use of biotin. Lab Interpretation Abnormal (test code = 65678-4) [facility] (NA, K, CL, CO2, GLUCOSE, BUN, CREATININE, CA)2022-02-15 10:44:07 Test Item Value Reference Range Interpretation Comments NA (test code = 134 mmol/L 135-145 L 0782918418) K (test code = 3.2 mmol/L 3.5-5 L 9629595990) CL (test code = 98 mmol/L 98-108 7287937417) CO2 TOTAL (test code = 27 mmol/L 23-31 7875824463) AGAP (test code = 2-16 1684963306) BUN (test code = 19 mg/dL 7-23 9009668660) GLUCOSE (test code = 102 mg/dL 70-110 1291398808) CREATININE (test code = 0.95 mg/dL 0.5-1.04 2988487385) CALCIUM (test code = 8.5 mg/dL 8.6-10.6 L 5863569831) eGFR (test code = mL/min/1.73m2 4872335729) KYLE (test code = KYLE) Association of [...] tests). Lab Interpretation Abnormal (test code = 64943-4) [facility]2022-09-26 10:44:07 Test Item Value Reference Range Interpretation Comments MAGNESIUM (test code = 6856133156) 1.8 mg/dL 1.7-2.4 Lab Interpretation (test code = Normal 62288-5) [facility]07 Test Item Value Reference Range Interpretation Comments MAGNESIUM (test code = 2329059601) 1.8 mg/dL 1.7-2.4 Lab Interpretation (test code = Normal 73604-4) [facility] METABOLIC PANEL (NA, K, CL, CO2, GLUCOSE, BUN, CREATININE, CA)2022-02-15 10:44:07 Test Item Value Reference Range Interpretation Comments NA (test code = 134 mmol/L 135-145 L 3215063132) K (test code = 3.2 mmol/L 3.5-5.0 L 7309275482) CL (test code = 98 mmol/L 98-108 5618461228) CO2 TOTAL (test code = 27 mmol/L 23-31 2282428511) AGAP (test code = 2-16 5843107061) BUN (test code = 19 mg/dL 7-23 9540747443) GLUCOSE (test code = 102 mg/dL 70-110 6777413645) CREATININE (test code = 0.95 mg/dL 0.50-1.04 9610883238) CALCIUM (test code = 8.5 mg/dL 8.6-10.6 L 1849210134) eGFR (test code = mL/min/1.73m2 4882487551) KYLE (test code = KYLE) Association of [...] tests). Lab Interpretation Abnormal (test code = 48820-2) [facility] WITH [id number] 10:12:06 Test Item Value Reference Range Interpretation [...] RDW-SD (test code = 47.8 fL 39-49.9 35536-3) RDW-CV (test code = 15.2 % 12-15.5 788-0) PLT (test code = See_Comment L [Automated 777-3) message] The sy stem which generated this result transmitted reference range : 166 - 358 10*3/ ?L. The reference r abbey was not used to interpret this result as normal/abnormal . MPV (test code = 8.9 fL 9.5-12.9 L 48056-7) NRBC/100 WBC (test See_Comment [Automat ed code = 1451249925) message] The system which generated this result transmitted reference range : 0.0 - 10.0 /100 WBCs. The refer ence range was not u sed to interpret th is result as normal/abnormal . NRBC x10^3 (test code See_Comment [Auto mated = 9481043848) message] The s ystem which generated this result transmitted reference range : 10*3/?L. The reference range was not used to interpret this result as normal/abnormal . GRAN MAT (NEUT) % 65.9 % (test code = 770-8) IMM GRAN % (test code 0.30 % = 5135686058) LYMPH % (test code = 21.0 % 736-9) MONO % (test code = 10.1 % 5905-5) EOS % (test code = 2.4 % 713-8) BASO % (test code = 0.3 % 706-2) GRAN MAT x10^3(ANC) 2.49 10*3/uL 1.88-7.09 (test code = 5316840932) IMM GRAN x10^3 (test 0-0.06 code = 8875712525) LYMPH x10^3 (test code 0.79 10*3/uL 1.32-3.29 L = 731-0) MONO x10^3 (test code 0.38 10*3/uL 0.33-0.92 = 742-7) EOS x10^3 (test code = 0.09 10*3/uL 0.03-0.39 711-2) BASO x10^3 (test code 0.01-0.07 = 704-7) Lab Interpretation Abnormal (test code = 49982-8) [facility] WITH [id number] 10:12:06 Test Item Value Reference Range Interpretation Comments WBC (test code = See_Comment L [Automated 6690-2) message] The sy stem which generated this result transmitted reference range : 4.30 - 11.10 10*3/?L. The reference range was not used to interpret this result as normal/abnormal . RBC (test code = See_Comment L [Automated 059-8) message] The sy stem which generated this [...] RDW-SD (test code = 47.8 fL 39.0-49.9 99287-7) RDW-CV (test code = 15.2 % 12.0-15.5 788-0) PLT (test code = See_Comment L [Automated 777-3) message] The sy stem which generated this result transmitted reference range : 166 - 358 10*3/ ?L. The reference r abbey was not used to interpret this result as normal/abnormal . MPV (test code = 8.9 fL 9.5-12.9 L 39886-5) NRBC/100 WBC (test See_Comment [Automat ed code = 2499584775) message] The system which generated this result transmitted reference range : 0.0 - 10.0 /100 WBCs. The refer ence range was not u sed to interpret th is result as normal/abnormal . NRBC x10^3 (test code See_Comment [Auto mated = 2866761392) message] The s ystem which generated this result transmitted reference range : 10*3/?L. The reference range was not used to interpret this result as normal/abnormal . GRAN MAT (NEUT) % 65.9 % (test code = 770-8) IMM GRAN % (test code 0.30 % = 2671511729) LYMPH % (test code = 21.0 % 736-9) MONO % (test code = 10.1 % 5905-5) EOS % (test code = 2.4 % 713-8) BASO % (test code = 0.3 % 706-2) GRAN MAT x10^3(ANC) 2.49 10*3/uL 1.88-7.09 (test code = 5545774024) IMM GRAN x10^3 (test 0.00-0.06 code = 4875012042) LYMPH x10^3 (test code 0.79 10*3/uL 1.32-3.29 L = 731-0) MONO x10^3 (test code 0.38 10*3/uL 0.33-0.92 = 742-7) EOS x10^3 (test code = 0.09 10*3/uL 0.03-0.39 711-2) BASO x10^3 (test code 0.01-0.07 = 704-7) Lab Interpretation Abnormal (test code = 73996-7) [facility] WITH [id number] 11:18:28 Test Item Value Reference Range Interpretation Comments WBC (test code = See_Comment L [Automated 7890-2) message] The sy stem which [...] RDW-SD (test code = 49.5 fL 39-49.9 15161-7) RDW-CV (test code = 15.5 % 12-15.5 788-0) PLT (test code = See_Comment L [Automated 777-3) message] The sy stem which generated this result transmitted reference range : 166 - 358 10*3/ ?L. The reference r abbey was not used to interpret this result as normal/abnormal . MPV (test code = 11.4 fL 9.5-12.9 77690-4) IPF % (test code = 8.7 % 1.3-7.7 H Platelet count 2555847227) measured by fluorescence method. NRBC/100 WBC (test See_Comment [Automat ed code = 4239868899) message] The system which generated this result transmitted reference range : 0.0 - 10.0 /100 WBCs. The refer ence range was not u sed to interpret th is result as normal/abnormal . NRBC x10^3 (test code See_Comment [Auto mated = 7622840069) message] The s ystem which generated this result transmitted reference range : 10*3/?L. The reference range was not used to interpret this result as normal/abnormal . GRAN MAT (NEUT) % 62.0 % (test code = 770-8) IMM GRAN % (test code 0.80 % = 5168536639) LYMPH % (test code = 22.2 % 736-9) MONO % (test code = 9.6 % 5905-5) EOS % (test code = 5.1 % 713-8) BASO % (test code = 0.3 % 706-2) GRAN MAT x10^3(ANC) 2.21 10*3/uL 1.88-7.09 (test code = 7736775365) IMM GRAN x10^3 (test 0.03 10*3/uL 0-0.06 code = 6917933455) LYMPH x10^3 (test code 0.79 10*3/uL 1.32-3.29 L = 731-0) MONO x10^3 (test code 0.34 10*3/uL 0.33-0.92 = 742-7) EOS x10^3 (test code = 0.18 10*3/uL 0.03-0.39 711-2) BASO x10^3 (test code 0.01-0.07 = 704-7) POLYCHROMASIA (test 2+ See_Comment [Automa arpit code = 85065-4) message] The system which generated this result [...] . Lab Interpretation Abnormal (test code = 32815-7) [facility] METABOLIC PANEL (NA, K, CL, CO2, GLUCOSE, BUN, CREATININE, CA)2022-02-13 10:39:07 Test Item Value Reference Range Interpretation Comments NA (test code = 136 mmol/L 135-145 8494923314) K (test code = 4.1 mmol/L 3.5-5 0343962848) CL (test code = 102 mmol/L 98-108 4982988321) CO2 TOTAL (test code = 27 mmol/L 23-31 4202201975) AGAP (test code = 2-16 6111436225) BUN (test code = 22 mg/dL 7-23 2501807687) GLUCOSE (test code = 94 mg/dL 70-110 0793230976) CREATININE (test code = 0.94 mg/dL 0.5-1.04 5295190216) CALCIUM (test code = 8.1 mg/dL 8.6-10.6 L 4939999994) eGFR (test code = mL/min/1.73m2 8644796259) KYLE (test code = KYLE) Association of [...] tests). Lab Interpretation Abnormal (test code = 89345-4) [facility] 01:50:10 Test Item Value Reference Range Interpretation Comments Height (test code = in 1792386441) Weight (test code = lbs 4027460049) Systolic BP (test code mmHg = 2654939134) Diastolic BP (test code mmHg = 3099227195) Heart Rate (test code = bpm 8831999830) BSA (test code = 1.85 m2 7650912345) IVS (test code = 1.22 cm 2173245590) Interventricular Septum 1.22 cm Diastolic Thickness by 2D (test code = 9561204) LVIDD (test code = 5.00 cm 6227182367) Left Ventricular End 117.9 mL Diastolic Volume by Teichholz Method (test code = 0937107) LVPWD (test code = 1.22 cm 0919567069) PW (test code = 1.22 cm 0.6-1.7 7594315808) EF(Teich) (test code = 74.60 % 7898717237) LVIDS (test code = 2.80 cm 0407032106) Left Ventricular End 29.9 mL Systolic Volume by Teichholz Method (test code = 0001334) FS (test code = 44 % 7861097277) EF - 2D (test code = 74.60 % 95800713) LVOT diameter (test 2.16 cm code = 5278773499) LVOT area (test code = 3.70 cm2 6438155183) Ao root diam (test code 3.40 cm = 1273449544) Aortic root (test code 3.4 cm = 5468178054) Ao root annulus (test 3.4 cm code = 5418583932) LA size (test code = 3.4 cm 9449222985) TR Peak Spencer (test code 330.0 cm/s = 7769992438) Triscuspid Valve mmHg Regurgitation Peak Gradient (test code = 4677825181) PV REGURGITATION PEAK mmHg GRADIENT (test code = 2845878118) PI dec slope (test code 137.20 cm/s2 = 4649328024) LAV(MOD-sp4) (test code 102.90 mL = 6806906379) MV Peak E Spencer (test 84.1 cm/s code = 1306146791) MV Peak A Spencer (test 40.1 cm/s code = 5244997142) E/A ratio (test code = ratio 0733190655) MV valve area p 1/2 3.70 cm2 method (test code = 9972174531) MV dec slope (test code 413.00 cm/s2 = 0192683006) MV P1/2t max spencer (test 83.70 cm/s code = 2601164222) MV Prop V (test code = 41.80 cm/s 7574708341) Tapse (test code = 1.83 cm 3164323180) LVOT stroke volume 96.90 cm3 (test code = 6291344302) LVOT peak spencer (test 125.5 cm/s code = 5933838151) LVOT mn grad (test code mmHg = 6590165853) AV LVOT peak gradient mmHg (test code = 6090330544) LVOT peak VTI (test 26.4 cm code = 2711343137) LV V1 mean (test code = 78.10 cm/s 8776617702) Aortic valve mean 103.7 cm/s velocity (test code = 7290274604) Ao peak spencer (test code 165.6 cm/s = 2324242184) Ao VTI (test code = 37.2 cm 2729755060) AV area by cont VTI 2.6 cm2 (test code = 4311896756) AV area peak spencer (test 2.8 cm2 code = 1031473878) Ao max PG (test code = 11.00 mm[Hg] 0215013613) AV peak gradient (test mmHg code = 3717943121) AV valve area (test 2.60 cm2 code = 7430457362) AV mean gradient (test mmHg code = 8231605691) LA Volume Index (BP) 55.2 mL/m2 (test code = 5953391377) LA volume (BP) (test 102.1 mL code = 2156212522) LAV(MOD-sp2) (test code 86.10 mL = 9317793233) A2C EF (test code = 61.20 % 1083675711) EF(sp2-el) (test code = 61.60 % 5701226745) SV(MOD-sp2) (test code 47.10 mL = 9845904832) LV Diastolic Volume 70.7 mL (BP) (test code = 1843028597) A4C EF (test code = 53.00 % 3018511300) EF(MOD-bp) (test code = 56.70 % 9625188481) EF(sp4-el) (test code = 53.90 % 0259333616) LV Systolic Volume (BP) 30.6 mL (test code = 0013976246) SV(MOD-bp) (test code = 40.10 mL 4444886530) SV(MOD-sp4) (test code 32.40 mL = 4607820616) SV(sp4-el) (test code = 33.10 mL 4002758598) EF (test code = 3638990344) Left Ventricular Stroke 40.1 mL Volume by 2-D Biplane-MOD (test code = 0978947) LV Diastolic Volume 38.2 mL/m2 Index (BP) (test code = 8532689344) LV Systolic Volume 16.5 mL/m2 Index (BP) (test code = 4013635061) Radiology Study observation (narrative) (test code = 00493-7) KYLE (test code = KYLE) ?Left?Ventricle: Left [...] ventricular wall motion is normal. [facility] [place], [place] [id number] 05:45:01 Test Item Value Reference Interpretation Comments Range TROPONIN I (test See_Comment [Automated code = 2190182296) message] The system which generated this result [...] biotin. Lab Interpretation Normal (test code = 31409-2) [id number] 05:41:40 Test Item Value Reference Range Interpretation Comments NT-proBNP (test code 4250 pg/mL See_Comment H [Autom ated = 4146837468) message] The system which generated this result transmitted reference range : <=125. The reference range was not used to interpret this result as normal/abnormal . KYLE (test code = KYLE) Biotin has been reported to cause a negative bias, interpret results relative to patient's use of biotin. Lab Interpretation Abnormal (test code = 88574-2) [facility] [id number] 05:35:21 Test Item Value Reference Range Interpretation [...] seconds. Lab Interpretation Normal (test code = 00511-0) [facility] [id number] 05:35:21 Test Item Value Reference Range Interpretation [...] seconds. Lab Interpretation Normal (test code = 69210-7) [facility] / [id number] 05:33:21 Test Item Value Reference Range Interpretation [...] tions. Lab Interpretation (test Normal code = 33156-3) [facility]. METABOLIC PANEL ([id number])2022-02-11 05:33:21 Test Item Value Reference Range Interpretation Comments NA (test code = 137 mmol/L 135-145 0733295235) K (test code = 4.3 mmol/L 3.5-5 9485073299) CL (test code = 103 mmol/L 98-108 1439937568) CO2 TOTAL (test code = 25 mmol/L 23-31 3167868956) AGAP (test code = 2-16 9158458078) BUN (test code = 19 mg/dL 7-23 0212884362) GLUCOSE (test code = 120 mg/dL 70-110 H 5541343638) CREATININE (test code = 1.15 mg/dL 0.5-1.04 H 7473403109) TOTAL BILI (test code = 0.9 mg/dL 0.1-1.8 5038422367) CALCIUM (test code = 8.9 mg/dL 8.6-10.6 2543433492) T PROTEIN (test code = 6.6 g/dL 6.3-8.2 1669623170) ALBUMIN (test code = 4.0 g/dL 3.5-5 3752224827) ALK PHOS (test code = 73 U/L 34-122 6843307801) ALTv (test code = 18 U/L 5-35 1742-6) AST(SGOT) (test code = 31 U/L 13-40 0288801536) eGFR (test code = mL/min/1.73m2 7506489589) KYLE (test code = KYLE) Association of [...] tests). Lab Interpretation Abnormal (test code = 31324-8) [facility]. METABOLIC PANEL ([id number])2022-02-11 05:33:21 Test Item Value Reference Range Interpretation Comments NA (test code = 137 mmol/L 135-145 7748677702) K (test code = 4.3 mmol/L 3.5-5.0 0285782745) CL (test code = 103 mmol/L 98-108 7788608824) CO2 TOTAL (test code = 25 mmol/L 23-31 3844516805) AGAP (test code = 2-16 5005494568) BUN (test code = 19 mg/dL 7-23 5433034975) GLUCOSE (test code = 120 mg/dL 70-110 H 3948463045) CREATININE (test code = 1.15 mg/dL 0.50-1.04 H 5559298118) TOTAL BILI (test code = 0.9 mg/dL 0.1-1.9 3050693180) CALCIUM (test code = 8.9 mg/dL 8.6-10.6 6129246647) T PROTEIN (test code = 6.6 g/dL 6.3-8.2 9185602074) ALBUMIN (test code = 4.0 g/dL 3.5-5.0 8181892883) ALK PHOS (test code = 73 U/L 34-122 0920154746) ALTv (test code = 18 U/L 5-35 1742-6) AST(SGOT) (test code = 31 U/L 13-40 2034323486) eGFR (test code = mL/min/1.73m2 4583268168) KYLE (test code = KYLE) Association of [...] tests). Lab Interpretation Abnormal (test code = 51103-6) [facility] / [id number] 05:33:21 Test Item Value Reference Range Interpretation [...] tions. Lab Interpretation (test Normal code = 35404-0) [facility] WITH [id number] 05:14:37 Test Item Value Reference Range Interpretation Comments WBC (test code = See_Comment [Automated 9990-2) message] The sy stem which generated this [...] RDW-SD (test code = 47.9 fL 39-49.9 71993-3) RDW-CV (test code = 14.9 % 12-15.5 788-0) PLT (test code = See_Comment L [Automated 777-3) message] The sy stem which generated this result transmitted reference range : 166 - 358 10*3/ ?L. The reference r abbey was not used to interpret this result as normal/abnormal . MPV (test code = 9.1 fL 9.5-12.9 L 02428-5) NRBC/100 WBC (test See_Comment [Automat ed code = 1617388065) message] The system which generated this result transmitted reference range : 0.0 - 10.0 /100 WBCs. The refer ence range was not u sed to interpret th is result as normal/abnormal . NRBC x10^3 (test code See_Comment [Auto mated = [id number]) message] The s ystem which generated this result transmitted reference range : 10*3/?L. The reference range was not used to interpret this result as normal/abnormal . GRAN MAT (NEUT) % 78.5 % (test code = 770-8) IMM GRAN % (test code 0.20 % = [id number]) LYMPH % (test code = 11.6 % 736-9) MONO % (test code = 8.4 % 5905-5) EOS % (test code = 1.1 % 713-8) BASO % (test code = 0.2 % 706-2) GRAN MAT x10^3(ANC) 3.45 10*3/uL 1.88-7.09 (test code = [id number]) IMM GRAN x10^3 (test 0-0.06 code = [id number]) LYMPH x10^3 (test code 0.51 10*3/uL 1.32-3.29 L = 731-0) MONO x10^3 (test code 0.37 10*3/uL 0.33-0.92 = 742-7) EOS x10^3 (test code = 0.05 10*3/uL 0.03-0.39 711-2) BASO x10^3 (test code 0.01-0.07 = 704-7) Lab Interpretation Abnormal (test code = 67651-6) General acute hospital Coronavirus 2019 [id number] 18:08:00 Test Item Value Reference Range Interpretation [...] det ection of nucleic acids f rom jrmBCEF-YpU-3 v irus and diagnosis of SA RS-CoV-2 virusinfection. It is an Emergency Use Authorization ( EUA) testauthorized by the U.S. FDA. BASIC METABOLIC [id number] 09:37:00 Test Item Value Reference Range Interpretation [...] = 9.0 mg/dL 8.0-10.5 N CA) PROTHROMBIN [id number] 09:32:00 Test Item Value Reference Range Interpretation [...] (to prevent recurrent infar ct). 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[facility] - XR CHEST 1 [id number] 00:00:00 [facility] : 1955 Sex: F FAX: Carmenza Kelly DO [phone] Talent: St: ADM FAX: Mike Scales MD [phone] FAX: Bahman Chopra [phone] Name: MARJAN FLEMING [facility] Leslie : 1955 Age/S: 66/F [address] [place] [address] Unit #: [id number] Loc: [place] [address] 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 Views: 1 view. Other [...] Lambert Vega M.D. CC: Carmenza Rahman DO; iMke Lund MD; Bahman Chopra Technologist: RT Taylor(R) Trnscrd Date/Time/By: 06/17/2021 (7138) : By: [email or web address] Orig Print D/T: S: 06/17/2021 (0604) PAGE 1 Signed ReportCOVID 19 Asymptomatic IH [...] high or waivedcomplexit y tests. BASIC METABOLIC [id number] 11:37:00 Test Item Value Reference Range Interpretation [...] code = 9.0 mg/dL 8.0-10.5 N CA) IHVLPYECXZ7453-07-14 11:37:00 Test Item Value Reference Range Interpretation Comments PREALBUMIN (test code = PREALB) 24.3 mg/dL 16.0-40.0 N PROTHROMBIN [id number] 11:03:00 Test Item Value Reference Range Interpretation [...] (to prevent recurrent infar ct). CBC W/AUTO BROB1980-05-97 10:59:00 Test Item Value Reference Range Interpretation [...] 0.0-0.1 N NRBC#) - XR CHEST 2 [id number] 00:00:00 [facility] [place]: [place] FLE[place] : 1955 Sex: F FAX: Carmenza Kelly DO [phone] Talent: St: PRE FAX: Mike Scales MD [phone] Name: MARJAN FLEMING [facility] Leslie : 1955 Age/S: 66/F [address] [place] [address] Unit #: [id number] Loc: [place] [address] Phys: Mike Lund MD Acct: [id number] Dis Date: Status: PRE [facility] PHONE #: [phone] Exam Date: 06/16/2021 1120 FAX #: [phone] Reason: PREOP EXAMS: CPT CODE: [id number] XR CHEST 2 V 25716 PROCEDURE INFORMATION: Exam: XR Chest Exam date [...] Technologist: Danielle Nix RT(R) Trnscrd Date/Time/By: 06/16/2021 (6601) : By: [email or web address] Orig Print D/T: S: 06/16/2021 (3646) PAGE 1 Signed ReportGastrointestinal cvbbz8536-51-11 04:35:05 Test Item Value Reference Interpretation Comments [...] Rotavirus PCR (test Not Detected code = 7231835) Salmonella PCR (test Not Detected code = [...] PCR Not Detected (test code = 7124) [facility] izqszhd1670-12-02 19:30:47 Test Item Value Reference Range Interpretation Comments Case number (test [id number] code = 8943603) Surgical pathology See link below for PDF report (test code = Lab Report 2255) Result status (test This is Supplemental code = 9863892) [facility] [id number] [facility] 16:31:00 Test Item Value Reference Range Interpretation Comments POC Activated Clotting Time (test code 153 s = POC Activated Clotting Time) [facility] CenterMyrhldwGTEMJFMXMU6740-97-57 16:31:00 Test Item Value Reference Range Interpretation Comments POC Activated Clotting Time (test code 153 s = POC Activated Clotting Time) [facility] CenterLrznkycLTYHMXXEQP1478-80-68 16:31:00 Test Item Value Reference Range Interpretation Comments POC Activated Clotting Time (test code 153 s = POC Activated Clotting Time) [facility] CenterFfwpbzdJIHHFOECKE0181-19-69 16:31:00 Test Item Value Reference Range Interpretation Comments POC Activated Clotting Time (test code 153 s = POC Activated Clotting Time) [facility] CenterXubyfjkOLRCZDPWDZ2775-08-93 16:31:00 Test Item Value Reference Range Interpretation Comments POC Activated Clotting Time (test code 153 s = POC Activated Clotting Time) [facility] CenterGcyxycfVNERBLIDFZ4927-35-65 16:31:00 Test Item Value Reference Range Interpretation Comments POC Activated Clotting Time (test code 153 s = POC Activated Clotting Time) [facility] CenterVpgkafnGWIGAUUVBM2519-88-66 16:31:00 Test Item Value Reference Range Interpretation Comments POC Activated Clotting Time (test code 153 s = POC Activated Clotting Time) [facility] CenterKzanzrmNWQSKJSGDK8421-03-57 14:37:00 Test Item Value Reference Range Interpretation Comments POC Activated Clotting Time (test code 454 s = POC Activated Clotting Time) [facility] CenterBwpjhczJHAKTCHVSM2720-33-44 14:37:00 Test Item Value Reference Range Interpretation Comments POC Activated Clotting Time (test code 454 s = POC Activated Clotting Time) [facility] CenterQlpyujnNQBNVQFICW9223-77-15 14:37:00 Test Item Value Reference Range Interpretation Comments POC Activated Clotting Time (test code 454 s = POC Activated Clotting Time) [facility] CenterQmoyhsbNTFEIUKWMA7386-71-28 14:37:00 Test Item Value Reference Range Interpretation Comments POC Activated Clotting Time (test code 454 s = POC Activated Clotting Time) [facility] CenterFvttluvSAKRRJICRG3994-38-27 14:37:00 Test Item Value Reference Range Interpretation Comments POC Activated Clotting Time (test code 454 s = POC Activated Clotting Time) [facility] CenterWiadzufFTLWKUHCBC2114-55-34 14:37:00 Test Item Value Reference Range Interpretation Comments POC Activated Clotting Time (test code 454 s = POC Activated Clotting Time) [facility] CenterMzduvkfBYSQHLNXZM3395-57-17 14:37:00 Test Item Value Reference Range Interpretation Comments POC Activated Clotting Time (test code 454 s = POC Activated Clotting Time) [facility] CenterKhggljxDJYKENDFJE5654-53-22 14:13:00 Test Item Value Reference Range Interpretation Comments POC Activated Clotting Time (test code 354 s = POC Activated Clotting Time) [facility] CenterJyzmbdoLVRBYOTQQW2612-01-26 14:13:00 Test Item Value Reference Range Interpretation Comments POC Activated Clotting Time (test code 354 s = POC Activated Clotting Time) [facility] CenterHxywgzgSFUQQCJIHT9112-15-58 14:13:00 Test Item Value Reference Range Interpretation Comments POC Activated Clotting Time (test code 354 s = POC Activated Clotting Time) [facility] CenterTlkidvdBEGIZLCYYE3769-02-29 14:13:00 Test Item Value Reference Range Interpretation Comments POC Activated Clotting Time (test code 354 s = POC Activated Clotting Time) [facility] CenterKfsnonpEIGAYBXBBJ5766-90-18 14:13:00 Test Item Value Reference Range Interpretation Comments POC Activated Clotting Time (test code 354 s = POC Activated Clotting Time) [facility] CenterGryoijoBSBHMENTGQ2828-65-46 14:13:00 Test Item Value Reference Range Interpretation Comments POC Activated Clotting Time (test code 354 s = POC Activated Clotting Time) [facility] CenterJwmmdzlXXESLORIXO6312-87-09 14:13:00 Test Item Value Reference Range Interpretation Comments POC Activated Clotting Time (test code 354 s = POC Activated Clotting Time) [facility] UBYNUUI0405-69-67 10:37:00Negative (08/29/20 5:37 AM) [facility]CHE[facility] SRNEP6029-30-01 10:37:64905Puwmanzc HermannCHEM PANEL 2020-08-29 10:37:0028[facility] HermannCHEM AHKPW6439-47-81 10:37:001.01[facility] HermannCHEM NYBRG8283-29-17 10:37:76039Hysdsnbp HermannCHEM GKMCN9936-76-36 10:37:003.8[facility] HermannCHEM MRFZH4961-65-14 10:37:36700Juwupuyn HermannCHEM WBORB7698-85-30 10:37:0028[facility] HermannCHEM SEWNX1527-38-04 10:37:009.8 [facility] HermannCHEM KSJDH6991-35-43 10:37:0011.8[facility] HermannCHEM PANEL 2020-08-29 10:37:0059[facility] HermannCHEM DSUEP1516-79-14 10:37:002.9[facility] PkktlnsRNWYSCNJKE8148-22-21 10:37:006.8[facility] NqabtkpXPGXEMISHT6411-06-77 10:37:004.47[facility] TaolybcLFPANLOLCR5116-88-98 10:37:0010.6[facility] EZYQGJGQWZ6738-59-68 10:37:0034.0[facility] EeyiygwXPLAGBXOMG9820-58-72 10:37:00 76.1[facility] ZzhrdauIOKJHWAOCL4568-68-83 10:37:00 Test Item Value Reference Range Interpretation Comments MCH (test code = MCH) 23.8 pg 27.0-31.0 [facility] JuzuywnFGQGPYUECO4554-93-81 10:37:0031.3[facility] HermannHEMATOLOGY 2020-08-29 10:37:0018.2[facility] XzhgfwdACFBTNREBR2349-97-90 10:37:26617Xznyebqq OeadpfrYENMTRRDAT3029-21-39 10:37:007.5[facility] QvmlqhbMPTMXASVKK1245-97-09 10:37:00 Test Item Value Reference Range Interpretation Comments PT (test code = PT) 12.8 s 12.0-14.7 [facility] OaarulqIBEWRRNHBS5853-21-89 10:37:00 Test Item Value Reference Range Interpretation Comments INR (test code = INR) 0.97 1 0.85-1.17 [facility] UxykejoCJTJARHJYO8046-34-68 10:37:00 Test Item Value Reference Range Interpretation Comments PTT (test code = PTT) 25.0 s 22.9-35.8 [facility] WcqnxfjXYMYIRXEWM4037-02-23 10:37:0070.5[facility] HermannHEMATOLOGY 2020-08-29 10:37:0018.8[facility] JblfpggQPTQLIISFL0282-43-93 10:37:009.5[facility] FksnqonMPTJZCJMTD0156-39-42 10:37:000.9[facility] TbvjvbuPXDCQXUZLP0826-92-87 10:37:000.3[facility] MydljnvZVGEXMGUKP9152-20-10 10:37:004.8[facility] YQCQWZPMGX1237-97-99 10:37:001.3[facility] MqoudxbTJSPAMGUUF3363-15-01 10:37:000.6 [facility] QmevjbgUCONZCEESR5588-71-32 10:37:000.1[facility] HermannHEMATOLOGY 2020-08-29 10:37:001+ *ABN*(08/29/20 5:37 AM)[facility] LpgdskuCVYQOZPZIF6354-69-97 10:37:00Not Detected (08/29/20 5:37 AM)[facility] HermannBLOOD BANK RESULTS 2020-08-29 10:37:00Negative (08/29/20 5:37 AM)[facility] HermannCHEM YWGUY6251-90-74 10:37:25238Eulvqogm HermannCHEM CELSL0809-45-88 10:37:0028[facility] HermannCHEM OZUDE3098-59-57 10:37:001.01[facility] HermannCHEM VUWMZ4933-23-63 10:37:73148 [facility] HermannCHEM ZOJGF5190-90-65 10:37:003.8[facility] HermannCHEM PANEL 2020-08-29 10:37:02372Pnmptzfk HermannCHEM OCAMV7585-40-92 10:37:0028[facility] HermannCHEM ULPQA7819-67-51 10:37:009.8[facility] HermannCHEM CKAKV4226-01-95 10:37:0011.8[facility] HermannCHEM KHDMA9360-60-91 10:37:0059[facility] HermannCHEM LEQUE9430-43-96 10:37:002.9[facility] ZwyrhkwBULFQCOTQW4833-01-71 10:37:006.8 Memorial LydvzcdHAAWIYOJIV6210-71-56 10:37:004.47[facility] HermannHEMATOLOGY 2020-08-29 10:37:0010.6[facility] FhvjgzuVKHYAURPBV3261-81-31 10:37:0034.0[facility] RynmiggOCKHJBIXUD0541-62-75 10:37:0076.1[facility] WkahbrtTOLLYMEHHU9639-40-10 10:37:00 Test Item Value Reference Range Interpretation Comments MCH (test code = MCH) 23.8 pg 27.0-31.0 [facility] VbonpxnWLJYJZYZDM1905-39-91 10:37:0031.3[facility] HermannHEMATOLOGY 2020-08-29 10:37:0018.2[facility] IwwcpipIAADMHIYDD0370-06-80 10:37:90727Uyljjhcm EwumyizFILIQOWLRJ1982-35-33 10:37:007.5[facility] OzpnbunNLGAKFVTWC9048-18-87 10:37:00 Test Item Value Reference Range Interpretation Comments PT (test code = PT) 12.8 s 12.0-14.7 [facility] QpgbdzhHDCSCUTSRI9197-47-57 10:37:00 Test Item Value Reference Range Interpretation Comments INR (test code = INR) 0.97 1 0.85-1.17 [facility] EjfktubOEUMQHHRUX6286-28-36 10:37:00 Test Item Value Reference Range Interpretation Comments PTT (test code = PTT) 25.0 s 22.9-35.8 [facility] GzvntlpGPQDULWIQD1624-24-62 10:37:0070.5[facility] HermannHEMATOLOGY 2020-08-29 10:37:0018.8[facility] QocbysyRJKEJSPBUY2201-62-55 10:37:009.5[facility] DqdkmmfYOMXZRHQEM9421-65-47 10:37:000.9[facility] EacobsqJKICXDDZES2671-60-94 10:37:000.3[facility] RjeztilEZPYKNYZVZ4254-51-93 10:37:004.8[facility] WVNHMQOOYB5217-14-50 10:37:001.3[facility] QvdtdquSTNNAFQKLL5239-25-53 10:37:000.6 [facility] CfytgfmGFJHWCWWMB8367-64-42 10:37:000.1[facility] HermannHEMATOLOGY 2020-08-29 10:37:001+ *ABN*(08/29/20 5:37 AM)[facility] BecwcwiSKPRLJUCQX1220-41-94 10:37:00Not Detected (08/29/20 5:37 AM)[facility] HermannBLOOD BANK RESULTS 2020-08-29 10:37:00Negative (08/29/20 5:37 AM)[facility] HermannCHEM TDDAQ5115-92-64 10:37:34997Tuwwoeys HermannCHEM YAVHX0171-78-09 10:37:0028[facility] HermannCHEM QDRMS4695-14-54 10:37:001.01[facility] HermannCHEM FFPND1845-08-64 10:37:29217 [facility] HermannCHEM FXFFT8035-51-89 10:37:003.8[facility] HermannCHEM PANEL 2020-08-29 10:37:48110Nejwxwqy HermannCHEM OVADQ4954-58-44 10:37:0028[facility] HermannCHEM PWOAV3331-18-32 10:37:009.8[facility] HermannCHEM QYHBW5445-88-75 10:37:0011.8[facility] HermannCHEM ZSDYZ2444-23-16 10:37:0059[facility] HermannCHEM DBIKB8463-93-67 10:37:002.9[facility] YzpjrmkCRCFMWPQDS3774-90-05 10:37:006.8 [facility] YwojrigVYXTHNBTIE9654-10-81 10:37:004.47[facility] HermannHEMATOLOGY 2020-08-29 10:37:0010.6[facility] IgefeylHAOTRVZHGX0616-51-58 10:37:0034.0[facility] JtezagfDDVAXONOPM8553-03-62 10:37:0076.1[facility] NwpgfxmLOVEBJQDDT1643-76-32 10:37:00 Test Item Value Reference Range Interpretation Comments MCH (test code = MCH) 23.8 pg 27.0-31.0 [facility] VlbgxeyYPFYNBKOHV7501-02-73 10:37:0031.3[facility] HermannHEMATOLOGY 2020-08-29 10:37:0018.2[facility] WvxxtnhZYVECVQXVF2592-02-05 10:37:04147Jbruyqlc DopftkhWSJZTKPWKL2968-77-21 10:37:007.5[facility] WpouwxfCOABTYIBLE7648-71-54 10:37:00 Test Item Value Reference Range Interpretation Comments PT (test code = PT) 12.8 s 12.0-14.7 [facility] KpareqaJIWJYHSVMT9155-15-96 10:37:00 Test Item Value Reference Range Interpretation Comments INR (test code = INR) 0.97 1 0.85-1.17 [facility] XtgnousYKAJFIBFNI2624-92-17 10:37:00 Test Item Value Reference Range Interpretation Comments PTT (test code = PTT) 25.0 s 22.9-35.8 [facility] BkasjjwUAKJTEFRGM8698-48-03 10:37:0070.5[facility] HermannHEMATOLOGY 2020-08-29 10:37:0018.8[facility] ZintpnlPTTHADENSG8162-25-87 10:37:009.5[facility] AcbhcwpWTPYJQZKXG0537-41-97 10:37:000.9[facility] GsrkoxpGRHYFTPVHR9922-51-18 10:37:000.3[facility] OvlazvcNUBIIRQDNY9383-43-73 10:37:004.8[facility] HHXTMAROET6343-02-41 10:37:001.3[facility] VzbfwqfXDRUVGHNVD9997-75-63 10:37:000.6 [facility] MssqwlcQLXABMTJMO4613-76-28 10:37:000.1[facility] HermannHEMATOLOGY 2020-08-29 10:37:001+ *ABN*(08/29/20 5:37 AM)[facility] FylwrojQRBFEOOHNV9484-68-32 10:37:00Not Detected (08/29/20 5:37 AM)[facility] HermannBLOOD BANK RESULTS 2020-08-29 10:37:00Negative (08/29/20 5:37 AM)[facility] HermannCHEM YJGIS7601-08-87 10:37:85261Gzewogny HermannCHEM QXKBU2305-12-05 10:37:0028[facility] HermannCHEM VOECJ4161-64-68 10:37:001.01[facility] HermannCHEM SIOQA2060-08-99 10:37:88295 [facility] HermannCHEM AVDKU3810-48-67 10:37:003.8[facility] HermannCHEM PANEL 2020-08-29 10:37:78720Lnwpztfj HermannCHEM WHVXE8150-54-35 10:37:0028[facility] HermannCHEM EJQVQ9010-84-85 10:37:009.8[facility] HermannCHEM FFUIM8066-68-31 10:37:0011.8[facility] HermannCHEM GVNQR6494-10-55 10:37:0059[facility] HermannCHEM FBOYG2921-81-94 10:37:002.9[facility] WaulmklYTPXBOHUPK9221-55-10 10:37:006.8 [facility] DvcjfhpOMARDVSWGB7959-31-37 10:37:004.47[facility] HermannHEMATOLOGY 2020-08-29 10:37:0010.6[facility] IbyyccsWHHFYMWPFN7521-91-52 10:37:0034.0[facility] IguqvsyVXIFHIPFYZ6424-60-17 10:37:0076.1[facility] ZlerxopWKTJYKJCCD0468-32-36 10:37:00 Test Item Value Reference Range Interpretation Comments MCH (test code = MCH) 23.8 pg 27.0-31.0 [facility] UhoiygxQUOSWEWRKY5664-71-52 10:37:0031.3[facility] HermannHEMATOLOGY 2020-08-29 10:37:0018.2[facility] CxisyaoFLIIDBCIRP9884-03-65 10:37:19642Xvuvoeau HwdngsiPRVLDSAYRK2008-90-57 10:37:007.5[facility] KspebgeQMRUJGMFYD9594-94-52 10:37:00 Test Item Value Reference Range Interpretation Comments PT (test code = PT) 12.8 s 12.0-14.7 [facility] GuhnlyuMNZVMAJVYD7774-83-77 10:37:00 Test Item Value Reference Range Interpretation Comments INR (test code = INR) 0.97 1 0.85-1.17 [facility] BrjpkiwDYCJWXLQKL0498-44-03 10:37:00 Test Item Value Reference Range Interpretation Comments PTT (test code = PTT) 25.0 s 22.9-35.8 [facility] JwrbsmoYOUCMCTPUA5923-18-00 10:37:0070.5[facility] HermannHEMATOLOGY 2020-08-29 10:37:0018.8[facility] YlgobsdGEVNFEVKOG0018-76-95 10:37:009.5[facility] MyvjydbEFUGYCGDTE0321-68-50 10:37:000.9[facility] DoqtkfbTCHEMWUUHJ9232-46-33 10:37:000.3[facility] VsrpxoyHCFXEQDGJG2502-19-00 10:37:004.8[facility] XBFQVODFUQ9571-51-40 10:37:001.3[facility] QmgqwzxHYPJQDVISU3579-05-98 10:37:000.6 [facility] VyvwpapYZFWEAFFWS5689-15-10 10:37:000.1[facility] HermannHEMATOLOGY 2020-08-29 10:37:001+ *ABN*(08/29/20 5:37 AM)[facility] EbkozcyZOJKWPHHVB4778-51-86 10:37:00Not Detected (08/29/20 5:37 AM)[facility] HermannBLOOD BANK RESULTS 2020-08-29 10:37:00Negative (08/29/20 5:37 AM)[facility] HermannCHEM MHYXE2875-01-95 10:37:57735Rhxgmolv HermannCHEM SCKCQ4801-94-09 10:37:0028[facility] HermannCHEM GFZIW3656-22-96 10:37:001.01[facility] HermannCHEM RWEEA6429-36-38 10:37:37173 [facility] HermannCHEM KQUWK2516-77-07 10:37:003.8[facility] HermannCHEM PANEL 2020-08-29 10:37:71984Zkdedary HermannCHEM FTNQA6223-33-08 10:37:0028[facility] HermannCHEM FDVVJ6123-68-41 10:37:009.8[facility] HermannCHEM DSDCC6841-56-44 10:37:0011.8[facility] HermannCHEM AADXE5519-46-18 10:37:0059[facility] HermannCHEM AEBCV9181-08-93 10:37:002.9[facility] KjgppupZCEUFYNHAP5441-99-50 10:37:006.8 [facility] MnoruxyBFHMRHVERG2534-22-23 10:37:004.47[facility] HermannHEMATOLOGY 2020-08-29 10:37:0010.6[facility] BfbvghuXBTWBZYTKP3793-52-22 10:37:0034.0[facility] ZuslumtDFMOLOIBLO1066-16-96 10:37:0076.1[facility] RqbxeruFCZRYRZEGL5708-74-67 10:37:00 Test Item Value Reference Range Interpretation Comments MCH (test code = MCH) 23.8 pg 27.0-31.0 [facility] GdmccwyFRHYCTLHRK1454-26-78 10:37:0031.3[facility] HermannHEMATOLOGY 2020-08-29 10:37:0018.2[facility] MxpjqbgOCMKLHXAMK2279-39-54 10:37:20813Wtuwuicg SdfhigwDVJFDPGAII3999-45-24 10:37:007.5[facility] SyiqeolMWLHHBFJZJ8916-60-80 10:37:00 Test Item Value Reference Range Interpretation Comments PT (test code = PT) 12.8 s 12.0-14.7 [facility] MfwsfifNOCSAFSTZV3324-29-62 10:37:00 Test Item Value Reference Range Interpretation Comments INR (test code = INR) 0.97 1 0.85-1.17 [facility] VpbdlrrEJEHGBSVWK9714-66-70 10:37:00 Test Item Value Reference Range Interpretation Comments PTT (test code = PTT) 25.0 s 22.9-35.8 [facility] EthhyuwLBAIFSHKIL9496-00-08 10:37:0070.5[facility] HermannHEMATOLOGY 2020-08-29 10:37:0018.8[facility] LwcjoxwGEFCDFOXUT2861-70-37 10:37:009.5[facility] MtkbrxeGKYTWTOCVX4452-99-68 10:37:000.9[facility] QyuvjhhWFIYKBKQFQ7792-15-06 10:37:000.3[facility] MhwcdowHKCESUFSTH8048-27-41 10:37:004.8[facility] ZYPNSUIGMD7541-57-80 10:37:001.3[facility] UxmpcfbRIWUBGKFOL6943-27-35 10:37:000.6 [facility] IpocawnPLFQYBMEZV1246-58-40 10:37:000.1[facility] HermannHEMATOLOGY 2020-08-29 10:37:001+ *ABN*(08/29/20 5:37 AM)[facility] DceevgiEUKOJVVXCS5598-21-66 10:37:00Not Detected (08/29/20 5:37 AM)[facility] HermannBLOOD BANK RESULTS 2020-08-29 10:37:00Negative (08/29/20 5:37 AM)[facility] HermannCHEM HGTUH2071-54-97 10:37:53204Avgvshws HermannCHEM MEGKS3531-48-95 10:37:0028[facility] HermannCHEM MJVOF6340-64-27 10:37:001.01[facility] HermannCHEM WVKJI2538-01-40 10:37:31056 [facility] HermannCHEM PACSE3572-68-54 10:37:003.8[facility] HermannCHEM PANEL 2020-08-29 10:37:21370Cgavyxva HermannCHEM KVMTV2442-32-73 10:37:0028[facility] HermannCHEM NECWK6633-92-09 10:37:009.8[facility] HermannCHEM GOGMG5398-12-66 10:37:0011.8[facility] HermannCHEM SANEC1539-60-32 10:37:0059[facility] HermannCHEM QSHHR4813-38-09 10:37:002.9[facility] YwpkgtfTKJQIOGZTV0392-71-55 10:37:006.8 [facility] JjgbkkcAZRAWEKZFB9491-01-00 10:37:004.47[facility] HermannHEMATOLOGY 2020-08-29 10:37:0010.6[facility] RscighjTYXBANCXDQ8369-72-69 10:37:0034.0[facility] MfzxyafMXHARJEVZV7274-22-79 10:37:0076.1[facility] XnbvzlsMQQTXVTTUQ1485-15-12 10:37:00 Test Item Value Reference Range Interpretation Comments MCH (test code = MCH) 23.8 pg 27.0-31.0 [facility] OxgdcbwOSPORCTMVZ4673-60-03 10:37:0031.3[facility] HermannHEMATOLOGY 2020-08-29 10:37:0018.2[facility] ArvrkyjFETWAQXSEC7491-19-45 10:37:61701Qgdckgxy HnbnzsvBUDDOHMTNY6791-52-46 10:37:007.5[facility] ZgapjldOSDYFMWTML3518-04-55 10:37:00 Test Item Value Reference Range Interpretation Comments PT (test code = PT) 12.8 s 12.0-14.7 [facility] EmrpsduHSTYCNCPFI8374-25-69 10:37:00 Test Item Value Reference Range Interpretation Comments INR (test code = INR) 0.97 1 0.85-1.17 [facility] HmafloxBQQRWUDGZV3377-08-18 10:37:00 Test Item Value Reference Range Interpretation Comments PTT (test code = PTT) 25.0 s 22.9-35.8 [facility] PzbhxznZUERNNUIDO9203-18-57 10:37:0070.5[facility]annHEMATOLOGY 2020-08-29 10:37:0018.8[facility] KjbpciaHDECSKMWOU1032-09-46 10:37:009.5[facility] YcfvpeeFWRYDWVRLP4104-09-31 10:37:000.9[facility] DosfnoxSBNYJJOGDG2673-49-07 10:37:000.3[facility] KfodncbHUJJBXBUCH2744-40-55 10:37:004.8[facility] FQRBHTEOJR1692-97-37 10:37:001.3[facility] JhlpcskAACFSOKWMV9782-16-81 10:37:000.6 [facility] EkepehvHWHUVPKGWN4489-79-43 10:37:000.1[facility]annHEMATOLOGY 2020-08-29 10:37:001+ *ABN*(08/29/20 5:37 AM)[facility] HzcefklWSDEAEQOCY6193-74-38 10:37:00Not Detected (08/29/20 5:37 AM)[facility] RES[facility] 2020-08-29 10:37:00Negative (08/29/20 5:37 AM)[facility] HermannCHEM ODOOF8517-56-91 10:37:60891Phscidtl HermannCHEM XASLB5645-59-01 10:37:0028[facility] HermannCHEM UKCMI5207-79-66 10:37:001.01[facility] HermannCHEM WQUHV5507-44-39 10:37:50414 [facility]annCHEM FBOFU5608-84-87 10:37:003.8[facility]annCHEM PANEL 2020-08-29 10:37:61018Mrycuure HermannCHEM BLHUT5232-22-65 10:37:0028[facility]annCHEM EWKVK9509-21-43 10:37:009.8[facility] HermannCHEM CCCYH5153-52-89 10:37:0011.8[facility]annCHEM VNQZF1009-11-89 10:37:0059[facility]annCHEM BFQXV4520-10-52 10:37:002.9[facility] CpicjbtUBTUTDQLHK0217-27-12 10:37:006.8 [facility] WuoifqbVPRGGLWGWD4188-87-80 10:37:004.47[facility]annHEMATOLOGY 2020-08-29 10:37:0010.6[facility] AbdiwzyGOOJNUMUCU6960-39-32 10:37:0034.0[facility] AinidmkLDHYUTPENV0718-28-05 10:37:0076.1[facility] OuknwesDQYRWNJOWU9289-85-06 10:37:00 Test Item Value Reference Range Interpretation Comments MCH (test code = MCH) 23.8 pg 27.0-31.0 [facility] RwnnarfXRPQLKUYVU3242-09-93 10:37:0031.3[facility]annHEMATOLOGY 2020-08-29 10:37:0018.2[facility] QjipazsCFAYKFISOU2666-70-11 10:37:00636Nvlpuxyp PmqwzbeKXAXGIHFJM4926-25-09 10:37:007.5[facility] DaghgcmHVANNWZKOJ4113-02-06 10:37:00 Test Item Value Reference Range Interpretation Comments PT (test code = PT) 12.8 s 12.0-14.7 [facility] VofrpjmUCYIWPXJPS3669-50-89 10:37:00 Test Item Value Reference Range Interpretation Comments INR (test code = INR) 0.97 1 0.85-1.17 [facility] ItpcdayVMAZIQAHOT4633-44-72 10:37:00 Test Item Value Reference Range Interpretation Comments PTT (test code = PTT) 25.0 s 22.9-35.8 [facility] GscbwsmPOWDRYRDWD3750-71-39 10:37:0070.5[facility]annHEMATOLOGY 2020-08-29 10:37:0018.8[facility] UjwufwfDKDHVOLCMR6953-32-23 10:37:009.5[facility] OgbpufaWIBNSZGDAC2247-56-54 10:37:000.9[facility] GkxibxjIXBLVNCXSS2424-50-25 10:37:000.3[facility] BjfjgayPTKSPUVWGR3469-28-97 10:37:004.8[facility] SQKXNOBZZL2822-41-03 10:37:001.3[facility] CitjzezPHAWYZNTXA6530-23-17 10:37:000.6 [facility] XjumxsjQJBKRZXVXK6212-27-18 10:37:000.1[facility]annHEMATOLOGY 2020-08-29 10:37:001+ *ABN*(08/29/20 5:37 AM)[facility]LamapvlDTWJEBVAGC6865-06-56 10:37:00Not Detected (08/29/20 5:37 AM)[facility] ZFNNG4038-72-24 15:38:00 Test Item Value Reference Range Interpretation Comments FT (test code = CHTR) Not detected (qualifier Not Detected N value) FT (test code = Not detected (qualifier Not Detected N NGONO) value) FT (test code = TRVG) Not detected (qualifier Not Detected N value) [facility] [id number] 10:57:00 Test Item Value Reference Range Interpretation Comments Color (test code = UCOLR) Dk. Yellow Clarity (test code = UCLAR) Hazy Glucose (test code = UGLUC) NEGATIVE NEGATIVE N Bilirubin (test code = UBILI) NEGATIVE NEGATIVE N Ketones (test code = UKET) NEGATIVE NEGATIVE N Specific [place] (test code = 1.025 1.005-1.030 A [...] [facility] Notes Date/Time Note Provider Source 2021-08-05 14:08:00-00:00 [id number] [place] [address] PATIENT NAME: MARJAN FLEMING ADMIT DATE: 08/05/21 ACCOUNT NO: [id number] ROOM NO: AGE: 66 REPORT TYPE: eTRANSESOPHAGEAL ECHO REPORT SEX: F ADMITTING PHYSICIAN: ATTENDING PHYSICIAN:Mike uLnd MD *[place] [address] Transesophageal Echocardiogram Patient: Marjan Fleming Study Date: 08/05/2021 BP: 158 / 92 Location: [facility] URN: [id number] : 1955 Age: 66 Height: / Gender: F Weight: / BMI/BSA: / *Ordering Physician: * Mike Lund *Interpreting Physician: * Ashely Mckeon MD *Central Supply Technician: * Odessa Interiano Indications: POST WATCHMAN. Study [...] benzocaine spray. A transesophageal probe (SN: [id number]) was inserted by the attending layboy operator without difficulty. L ocation: CV PREP. Patient status: Outpatient. Study completion: e patient tolerated the procedure well. There were no complications. Findings Left ventricle: The cavity size is normal. Wall thickness is normal. Systolic function is normal. The estimated eject ion fraction is 60-64%. Wall motion is normal; there are no regional wal l motion abnormalities. PATIENT NAME: MARJAN FLEMING 31 Left atrium: The atrium is normal in [...] benzocaine spray. A transeso phageal probe (SN: [id number]) was inserted by the attending cardiolog ist [...] PATIENT NAME: MARJAN FLEMING 1 2021-06-24 11:18:00-00:00 [id number] [place] [address] PATIENT NAME: MARJAN FLEMING ADMIT DATE: 06/17/21 ACCOUNT NO: [id number] ROOM NO: [facility] AGE: 66 REPORT TYPE: eTRANSESOPHAGEAL ECHO REPORT SEX: F ADMITTING PHYSICIAN:Mike Lund MD ATTENDING PHYSICIAN:Mike Lund MD *[place] [address] Transesophageal Echocardiogram for Watchman Patient: Marjan Fleming Study Date: 06/17/2021 BP: Location: [facility] URN: [id number] : 1955 Age: 66 Height: / [...] setup: The patient was brought to the [facility] in the fasting state.Intravenous access was obtained. Surface E CG leads, blood pressure measurements, and pulse oximetric signals were m onitored. Sedation. Sedation was administered by anesthesiology samreen rodas. Transesophageal echocardiography was performed. A transesophagea l probe was inserted by the anesthesiologist. Images were obtained using a Bench cardiac ultrasound machine. Location: Catheterization laboratory. ranjan completion: The patient tolerated the procedure well. There were no complications. Findings Conclusions Summary: PATIENT NAME: MARJAN FLEMING 7 1. Study data: Transesophageal Echocardiogram fo r Watchman. 2. Procedure narrative: Transesophageal echocard iography was performed. A transesophageal probe was inserted by the dayton sthesiologist. Images were obtained using a Bench cardiac ultrasound mac dalton. Impressions: Patient with [...] stable. Right groin suture removed by this MANAGER CATEGORY. No infect ion, bleeding, or hematoma. Dermabond applied and intact. Patient was provided with post-Watchman discharg e instructions. Patient is to follow up with PCP and layboy operator in 1 t o 2 weeks post discharge. Patient is to follow up with layboy operator for th e 45-day WESLEY, and for anticoagulation recommendation. Prepared and electronically signed by Ashely Mckeon MD 06/24/2021 11:18 Electronically Signed by Mike Lund MD on at 1118 PATIENT NAME: MARJAN FLEMING 7 2021-06-17 18:10:00-00:00 [id number] [place] [address] PATIENT NAME: MARJAN FLEMING ADMIT DATE: 06/17/21 ACCOUNT NO: [id number] ROOM NO: ADDIS AGE: 66 REPORT TYPE: eECHOCARDIOGRAM REPORT SEX: F ADMITTING PHYSICIAN:Mike Lnud MD ATTENDING PHYSICIAN:Mike Lund MD *[facility]* [address] [place] [address]. [place] [id number] Limited Transthoracic Echocardiogram Patient: Marjan Fleming Study Date: 06/17/2021 BP: 117 / 82 Location: [facility] URN: [id number] 2647 : 1955 Age: 66 Height: 64 in / 162.6 cm Gender: F Weight: 210 lb / 95.5 kg BMI/BSA: 36.1 kg/m 2 / 2.12 m 2 *Ordering Physician: * Bahman Chopra *Interpreting Physician: * Kevin Merino MD *Central Supply Technician: * Tiarra Loja Indications: Post Watchman/Rule out pericardial effusion. Study data: Transthoracic echocardiogram, limite d study. Procedure: Transthoracic echocardiography was performed. Im age quality was adequate. Limited 2D and limited spectral Dopple r. Location: [facility]. Patient status: Outpatient. Study status: Routin [...] PATIENT NAME: MARJAN FLEMING 7 2021-06-17 11:12:00-00:00 [facility] Discharge Summary REPORT#:[id number] REPORT STATUS: Signed DATE:06/17/21 TIME: 1112 PATIENT: MARJAN FLEMING UNIT #: [id number] ROOM/BED: [place] [id number] : [birth year] AGE: 67 SEX: F ATTEND: René Lund MD ADM AUTHOR: Bahman Chopra * ALL edits or amendments must be made on the [employer]/computer document * PCP PCP Discharge to: home [...] stable. Right groin suture removed by this MANAGER CATEGORY. No infect ion, bleeding, or hematoma. Dermabond applied and intact. [facility]. Patient is to follow up with PCP and layboy operator in 1 to 2 we eks post discharge. Patient is to follow up with layboy operator for th e 45-day WESLEY, and for [...] breath, lightheadedness, or dizzi ness to the layboy operator. Dispo: It is medically necessary that patients [...] Date Time O2 Delivery Nasal cannula 06/17 102 O2 Flow Rate 3.5 06/17 1022 Pulse [...] distress GI: soft, non-tender Extremities: moves all Neuro/SALES ENGINEER ACCOUNT MANAGER: alert, oriented X 3 Skin: dry Wound/incision: Location: Right groin suture removed by this MANAGER CATEGORY. No infect ion, bleeding, or hematoma. Dermabond [...] Lund MD on 07/14 at 0946 RPT #:[id number] END OF REPORT 2021-06-17 09:43:00-00:00 [id number] [place] [address] PATIENT NAME: MARJAN FLEMING ADMIT DATE: 06/17/21 ACCOUNT NO: [id number] ROOM NO: ADDIS AGE: 66 REPORT TYPE: eELECTROCARDIOGRAM REPORT SEX: F ADMITTING PHYSICIAN:Mike Lund MD ATTENDING PHYSICIAN:Mike Lund MD Order: [id number] Test Reason : S/P WATCHMAN Test Date/Time [...] MD at 1807 PATIENT NAME: MARJAN FLEMING 47 2021-06-17 08:54:00-00:00 [id number] [place] [address] PATIENT NAME: MARJAN FLEMING ADMIT DATE: 06/17/21 ACCOUNT NO: [id number] ROOM NO: ADDIS AGE: 66 REPORT TYPE: CARDIAC CATHETERIZATION REPORT SEX: F ADMITTING PHYSICIAN:Mike Lund MD ATTENDING PHYSICIAN:Mike Lund MD PROCEDURE DATE: 06/17/2021 PROCEDURE PERFORMED: Left atrial appendage closu re using a 24 mm Watchman FLX closure device. ACCESS: Right femoral vein, 16-Mexican closed wit h cekkpe-qs-uyoja suture. SEAL EXTRUSION OPERATOR: Mike Lund MD. SECONDARY HEEL NAIL RASPER: Kevin Merino MD. COMPLICATIONS: None. BLEEDING: Less [...] I accessed right femo ral vein, placed 8-Mexican [place] sheath. Subsequently, upgraded to 16-Mexican sheath and gave a partial dose of heparin, then took the SL1 sheat h into the SVC over a wire with [place] needle inside, descended under the fluor oscopy [...] I removed the Watchman sheath and the 16-Mexican sheath and placed rsohnd-yd-gftyf suture for hemostasis, then achieved a good hemo stasis. CONCLUSION: Left atrial appendage closure using a 24 mm Watchman FLX closure PATIENT NAME: MARJAN FLEMING 7 device. Dictated By: Mike Lund MD WT: CATH:GAYLE/RIKY/LALA Conf#: [id number]#: [id number] Authenticated by Mike Lund MD On 07/01/2021 12:30:01 PM Electronically Signed by Mike Lund MD on at 1230 PATIENT NAME: MARJAN FLEMING 7 2021-06-16 10:36:00-00:00 [phone] [place] [address] PATIENT NAME: MARJAN FLEMING ADMIT DATE: ACCOUNT NO: [id number] ROOM NO: AGE: 66 REPORT TYPE: eELECTROCARDIOGRAM REPORT SEX: F ADMITTING PHYSICIAN: ATTENDING PHYSICIAN:Mike Lund MD Order: [id number] Test Reason : PREOP Test Date/Time Stamp: [...]
[2022-11-15] MEDS ORDERED: HYDRALAZINE HCL 25 MG TABLET ONE (05:35)
[2022-11-15 05:41] LABS: Absolute Lymphocytes (CBC) 0.9 K/uL (0.7-4.9); Hematocrit 32.9 % (36.0-45.0); Lymphocytes % 23.1 % (15.3-44.8); MPV 7.3 fL (7.6-11.3); RBC Red Blood Cell Count 4.01 M/uL (3.86-4.86)
[2022-11-15 05:58] LABS: Magnesium 2.3 mg/dL (1.6-2.4); Potassium 3.1 mEq/L (3.5-5.1); Troponin High Sensitivity 21.7 pg/mL (<58.9)
[2022-11-15] MEDS ORDERED: ONDANSETRON 4 MG/2 ML VIAL ONE (06:13)
[2022-11-15] MEDS ORDERED: FUROSEMIDE 20 MG/ 2ML VIAL ONE (06:56)
[2022-11-15] MEDS ORDERED: POTASSIUM 25 MEQ EFFERV TAB ONE (06:56)
--- NOTE | 2022-11-15 07:43 | RAD REPORT ---
[facility] DES[facility]11/15/2022 6:05 am CLINICAL HISTORY: CONGESTION COMPARISON: Chest Single View dated 11/09/2022; Chest Single View dated 11/07/2022; Chest Single View dated 10/02/2022; Chest Pa And Lat (2 Views) dated 09/24/2022 TECHNIQUE: Portable AP view of the chest. FINDINGS: The lungs are clear.Prominent caliber of right and left pulmonary arteries, stable. No pne umothorax or effusion. Heart is again mildly enlarged. The cardiomediastinal contours are unremarkabl e. Bilateral shoulder arthroplasty hardware in place. IMPRESSION: No acute cardiopulmonary process. Stable findings as above.
--- NOTE | 2022-11-15 07:54 | ER ---
Nurse's Notes [facility] Name: Marjan Kolb Age: 67 yrs Sex: Female : 1955 Arrival Date: 11/15/2022 Time: 05:07 Bed 3 Private MD: Diagnosis: Heart failure, unspecified;Shortness of breath;Anemia, unspecified;Essential (primary) hypertension Presentation: 11/15 05:08 Chief complaint: EMS states: Pt reports x2 days. Pt reports laying down tonight and jb4 could not catch her breath. Coronavirus screen: At this time, the client does not indicate any symptoms associated with coronavirus-19. Ebola Screen: No symptoms or risks identified at this time. Initial Sepsis Screen: Does the patient meet any 2 criteria? No. Patient's initial sepsis screen is negative. Does the patient have a suspected source of infection? No. Patient's initial sepsis screen is negative. Risk Assessment: Do you want to hurt yourself or someone else? Patient reports no desire to harm self or others. Onset of symptoms was November 15, 2022. Transition of care: patient was not received from another setting of care. 05:08 Method Of Arrival: EMS: [facility] jb4 05:08 Acuity: BLAYNE 3 jb4 Historical: - Allergies: 05:14 Azithromycin; jb4 05:14 Bactrim; jb4 05:14 butorphanol; jb4 05:14 Fentanyl; jb4 05:14 Reglan; jb4 05:14 Sulfa (Sulfonamide Antibiotics); jb4 05:14 TRIMETHOPRIM; jb4 - Home Meds: 05:14 lisinopril Oral [Active]; Metoprolol Tartrate Oral [Active]; jb4 - PMHx: 05:14 angina pectoris; angina pectoris; Anxiety; Atrial fibrillation; Bipolar disorder; jb4 esophageal varicies; Hepatitis; HIV positive; Hypertensive disorder; Migraine; panic attack; - Immunization history:: Adult Immunizations up to date, Pneumococcal vaccine is up to date, Flu vaccine is up to date. - Social history:: Smoking status: Patient/guardian denies using tobacco, the patient reports quitting approximately 2 years ago. Screenin:36 [facility] ED Fall Risk Assessment (Adult) History of falling in the last 3 months, ph including since admission No falls in past 3 months (0 pts) Confusion or Disorientation No (0 pts) Intoxicated or Sedated No (0 pts) Impaired Gait No (0 pts) Mobility Assist Device Used No (0 pt) Altered Elimination No (0 pt). Abuse screen: Denies threats or abuse. Denies injuries from another. Nutritional screening: No deficits noted. Tuberculosis screening: No symptoms or risk factors identified. Assessment: 05:34 General: Appears in no apparent distress. comfortable, Behavior is calm, cooperative, jb4 appropriate for age. Pain: Denies pain. Neuro: Level of Consciousness is awake, alert, obeys commands, Oriented to person, place, time, situation. Cardiovascular: Patient's skin is warm and dry. Respiratory: Airway is patent Respiratory effort is even, unlabored, Respiratory pattern is regular, symmetrical. GI: No signs and/or symptoms were reported involving the gastrointestinal system. : No signs and/or symptoms were reported regarding the genitourinary system. EENT: No signs and/or symptoms were reported regarding the EENT system. Derm: Skin is intact, Skin is pink, warm \\T\\ dry. Musculoskeletal: Circulation, motion, and sensation intact. Range of motion: intact in all extremities. 06:12 Reassessment: Patient appears in no apparent distress at this time. Patient and/or jb4 family updated on plan of care and expected duration. Pain level reassessed. Patient is alert, oriented x 3, equal unlabored respirations, skin warm/dry/pink. 07:35 Reassessment: Patient appears in no apparent distress at this time. Patient and/or ph family updated on plan of care and expected duration. Pain level reassessed. Patient is alert, oriented x 3, equal unlabored respirations, skin warm/dry/pink. Pt eating sandwich and drinking juice, tolerating well at this time, asks, " Are they going to let me go home? Who is the doctor today?" VSS. Vital Signs: 05:08 BP 198 / 104; Pulse 62; Resp 16; Pulse Ox 100% ; Weight 79.38 kg; Height 5 ft. 4 in. ; jb4 06:12 BP 178 / 102; Pulse 64; Resp 18; Pulse Ox 97% on R/A; jb4 07:36 BP 169 / 100; Pulse 68; Resp 18; Pulse Ox 93% on R/A; ph 05:08 Body Mass Index 30.04 (79.38 kg, 162.56 cm) jb4 ED Course: 05:08 Patient arrived in ED. oe 05:08 Mode Bhatt, RN is Primary Nurse. jb4 05:10 Jose Shah DO is Attending Physician. ms3 05:14 Triage completed. jb4 05:14 Arm band placed on right wrist. jb4 06:00 Inserted saline lock: 18 gauge in right forearm, using aseptic technique. Blood rv collected. 06:07 XRAY Chest Pa And Lat (2 Views) In Process Unspecified. EDMS 07:52 Attending Physician role handed off by Jose Shah DO bs3 07:52 Sameer Merrill MD is Attending Physician. bs3 07:53 Mike Lund MD is Referral Physician. bs3 08:06 Patient has correct armband on for positive identification. ph 08:06 No provider procedures requiring assistance completed. IV discontinued, intact, ph bleeding controlled, No redness/swelling at site. Pressure dressing applied. Administered Medications: 05:28 Drug: HydrALAZINE PO 50 mg Route: PO; jb4 08:07 Follow up: Response: No adverse reaction ph 06:08 Drug: Ondansetron IVP 4 mg Route: IVP; Site: right forearm; jb4 08:07 Follow up: Response: No adverse reaction ph 06:54 Drug: Furosemide IVP 20 mg Route: IVP; Site: right forearm; rv 08:07 Follow up: Response: No adverse reaction ph 06:54 Drug: Potassium PO Effervescent Tablet 50 mEq Route: PO; rv 08:07 Follow up: Response: No adverse reaction ph Medication: 08:06 VIS not applicable for this client. ph Outcome: 07:53 Discharge ordered by . bs3 08:06 Discharged to home via wheelchair. ph 08:06 Condition: good 08:06 Discharge instructions given to patient, Instructed on discharge instructions, follow up and referral plans. Demonstrated understanding of instructions, follow-up care. 08:07 Patient left the ED. ph Signatures: Dispatcher [employer] EDMS Solange Bennett RN RN ph Mode Bhatt, RN RN jb4 Burton Malhotra Ronaldo, RN RN rv Jose Shah DO DO ms3 Sameer Merrill MD MD bs3
--- NOTE | 2022-11-15 07:54 | EDPHYS ---
Physician Documentation [facility] Name: Marjan Kolb Age: 67 yrs Sex: Female : 1955 Arrival Date: 11/15/2022 Time: 05:07 Bed 3 Private MD: ED Physician Sameer Merrill HPI: 11/15 05:11 This 67 yrs old Female presents to ER via Unassigned with complaints of Shortness of ms3 breath. 05:11 67-year-old female with past medical history of COPD, HIV, angina, anxiety, atrial ms3 fibrillation, bipolar disorder, esophageal varices, hepatitis, hypertension, migraines presents via [facility] for shortness of breath that has been ongoing for 2 days. EMS notes on their arrival patient's oxygen saturations were 94 to 96% on room air. Patient states that shortness of breath is worse with exertion. Patient denies alleviating factors. Historical: - Allergies: 05:14 Azithromycin; jb4 05:14 Bactrim; jb4 05:14 butorphanol; jb4 05:14 Fentanyl; jb4 05:14 Reglan; jb4 05:14 Sulfa (Sulfonamide Antibiotics); jb4 05:14 TRIMETHOPRIM; jb4 - Home Meds: 05:14 lisinopril Oral [Active]; Metoprolol Tartrate Oral [Active]; jb4 - PMHx: 05:14 angina pectoris; angina pectoris; Anxiety; Atrial fibrillation; Bipolar disorder; jb4 esophageal varicies; Hepatitis; HIV positive; Hypertensive disorder; Migraine; panic attack; - Immunization history:: Adult Immunizations up to date, Pneumococcal vaccine is up to date, Flu vaccine is up to date. - Social history:: Smoking status: Patient/guardian denies using tobacco, the patient reports quitting approximately 2 years ago. ROS: 05:11 Eyes: Negative for injury, pain, redness, and discharge, Neck: Negative for injury, ms3 pain, and swelling, Cardiovascular: Negative for chest pain, and palpitations. 05:11 MS/Extremity: Negative for injury and deformity, Skin: Negative for injury, rash, and discoloration. 05:11 Constitutional: Positive for chills. 05:11 Respiratory: Positive for shortness of breath. 05:11 All other systems are negative. Exam: 05:11 Constitutional: This is a well developed, well nourished patient who is awake, alert, ms3 and in no acute distress. Head/Face: Normocephalic, atraumatic. Neck: Trachea midline, no cervical lymphadenopathy. Supple, full range of motion without nuchal rigidity, or vertebral point tenderness. No Meningismus. Chest/axilla: Normal chest wall appearance and motion. Nontender with no deformity. Cardiovascular: Regular rate and rhythm with a normal S1 and S2. No gallops, murmurs, or rubs. Normal PMI, no JVD. No pulse deficits. Respiratory: Lungs have equal breath sounds bilaterally, clear to auscultation and percussion. No rales, rhonchi or wheezes noted. No increased work of breathing, no retractions or nasal flaring. Abdomen/GI: Soft, non-tender, with normal bowel sounds. No distension or tympany. No guarding or rebound. No evidence of tenderness throughout. Skin: Warm, dry with normal turgor. Normal color with no rashes, no lesions, and no evidence of cellulitis. MS/ Extremity: Pulses equal, no cyanosis. Neurovascular intact. Full, normal range of motion. 05:57 ECG was reviewed by the Attending Physician. ms3 Vital Signs: 05:08 BP 198 / 104; Pulse 62; Resp 16; Pulse Ox 100% ; Weight 79.38 kg; Height 5 ft. 4 in. ; jb4 06:12 BP 178 / 102; Pulse 64; Resp 18; Pulse Ox 97% on R/A; jb4 07:36 BP 169 / 100; Pulse 68; Resp 18; Pulse Ox 93% on R/A; ph 05:08 Body Mass Index 30.04 (79.38 kg, 162.56 cm) jb4 MDM: 05:11 Patient medically screened. ms3 05:11 Differential diagnosis: Anemia CHF exacerbation, Chronic Obstructive Pulmonary Disease ms3 Myocardial Infarction pneumonia. 07:52 ED course: Patient signed out pending reassessment and x-ray patient reassessed she is bs3 feeling well she is at her home O2 baseline she is requesting to go home I reviewed the x-ray is negative for acute cardiopulmonary disease as interpreted by myself radiology read the x-ray and it was negative will discharge home advised outpatient follow-up with cardiology. 11/15 05:11 Order name: Basic Metabolic Panel; Complete Time: 06:01 ms3 11/15 05:11 Order name: CBC with Diff; Complete Time: 05:57 ms3 11/15 05:11 Order name: Magnesium; Complete Time: 06:01 ms3 11/15 05:11 Order name: NT PRO-BNP; Complete Time: 06:01 ms3 11/15 05:11 Order name: Troponin HS; Complete Time: 06:01 ms3 11/15 05:09 Order name: XRAY Chest Pa And Lat (2 Views); Complete Time: 07:52 oe 11/15 05:11 Order name: EKG; Complete Time: 05:12 ms3 11/15 05:11 Order name: Cardiac monitoring; Complete Time: 05:21 ms3 11/15 05:11 Order name: EKG - Nurse/Tech; Complete Time: 05:21 ms3 11/15 05:11 Order name: IV Saline Lock; Complete Time: 05:28 ms3 11/15 05:11 Order name: Labs collected and sent; Complete Time: 05:28 ms3 11/15 05:11 Order name: O2 Per Protocol; Complete Time: 05:21 ms3 11/15 05:11 Order name: O2 Sat Monitoring; Complete Time: 05:21 ms3 EC:57 Rate is 58 beats/min. Rhythm is regular. QRS [place] is Normal. AL interval is normal. QRS ms3 interval is normal. Clinical impression: Sinus bradycardia. Interpreted by me. Reviewed by me. Administered Medications: 05:28 Drug: HydrALAZINE PO 50 mg Route: PO; jb4 08:07 Follow up: Response: No adverse reaction ph 06:08 Drug: Ondansetron IVP 4 mg Route: IVP; Site: right forearm; jb4 08:07 Follow up: Response: No adverse reaction ph 06:54 Drug: Furosemide IVP 20 mg Route: IVP; Site: right forearm; rv 08:07 Follow up: Response: No adverse reaction ph 06:54 Drug: Potassium PO Effervescent Tablet 50 mEq Route: PO; rv 08:07 Follow up: Response: No adverse reaction ph Disposition Summary: 11/15/22 07:53 Discharge Ordered Location: Home bs3 Problem: an acute exacerbation bs3 Symptoms: have improved bs3 Condition: Fair bs3 Diagnosis - Heart failure, unspecified bs3 - Shortness of breath bs3 - Anemia, unspecified bs3 - Essential (primary) hypertension bs3 Followup: ms3 - With: - When: 1 - 2 days - Reason: Recheck today's complaints Discharge Instructions: - Discharge Summary Sheet ms3 - Anemia ms3 - Heart Failure, Diagnosis ms3 - Hypertension, Adult ms3 - Shortness of Breath, Adult ms3 - Heart Failure, Diagnosis, [id number] ms3 - Heart Failure Action Plan ms3 - Heart Failure Exacerbation ms3 - Heart Failure and Exercise ms3 - Heart Failure Eating Plan ms3 Forms: - Medication Reconciliation Form bs3 - Thank You Letter bs3 - Antibiotic Education bs3 - Prescription Opioid Use bs3 Signatures: Dispatcher [employer] EDMode Seymour RN RN jb4 Scott Yates RN RN Jose Mccann DO DO ms3 Sameer Merrill MD MD bs3 Solange Bennett RN ph
[2022-11-15 08:29] VITALS: BP 169/100; O2SAT 93
--- NOTE | 2022-11-16 20:41 | EKG ---
Test Date: 2022-11-15 Test Time: 05:19:47 Evaporative Cooler Installer: TRENT MEASUREMENT RESULTS: Intervals: Rate: 58 ME: 202 QRSD: 90 QT: 490 QTc: 481 [place]: P: 69 ME: 202 QRS: 19 T: -78 INTERPRETIVE STATEMENTS: Sinus bradycardia Moderate voltage criteria for LVH, may be normal variant Nonspecific ST and T wave abnormality Prolonged QT Abnormal ECG Compared to ECG 11/09/2022 12:34:38 ST (T wave) deviation now present Prolonged QT interval now present Sinus arrhythmia no longer present Early repolarization no longer present Electronically Signed On 11-16-22 20:33:27 CDT by Per Crane
== END 2022-11-15 08:07 | disposition home or self-care (01) ==
LOC: ER 05:07
DX: I50.9 Heart failure, unspecified (principal); D64.9 Anemia, unspecified; I10 Essential (primary) hypertension; Z21 Asymptomatic human immunodeficiency virus [HIV] infection status; F41.9 Anxiety disorder, unspecified; Z88.1 Allergy status to other antibiotic agents; Z88.2 Allergy status to sulfonamides; Z88.3 Allergy status to other anti-infective agents; Z88.5 Allergy status to narcotic agent; Z88.8 Allergy status to other drugs, medicaments and biological substances
CPT/HCPCS: 85025; 80048; 36415; 83735; 84484; 83880; 71046; J1940; J2405; 93005

== ENCOUNTER 2022-11-24 13:53 | Inpatient (IN) | payer OTHER ==
--- OUTSIDE RECORDS SUMMARY | 2022-11-24 14:17 | XMS REPORT | Continuity of Care Document ---
:1955 Author Organization [facility] t Address [address] [place] [address] Care Team Providers Name Role Phone Urmila Rahman Nunes Primary Care Physician ELAN LIRA Attending Clinician Unavailable BEVERLY LAYTON Attending Clinician Unavailable SANTIAGO CARDENAS Attending Clinician Unavailable Santiago Sanchez Attending Clinician HOME MATTHEWS Attending Clinician Unavailable Home Santamaria Attending Clinician THERESA HICKMAN Attending Clinician Unavailable Theresa Hickman DO Attending Clinician ANETTE OLEA Attending Clinician Unavailable Anette Olea MD Attending Clinician PAULETTE GRAY Attending Clinician Unavailable Isaac PACPaulette S Attending Clinician UNKNOWN, ATTENDING Attending Clinician Unavailable Robbi Bal Attending Clinician [facility] Attending Clinician Unavailable Isaias Whiteside RN Attending Clinician Unavailable TOMY MARIE Attending Clinician Unavailable Reilly Means MD Attending Clinician Ofe Shields MD Attending Clinician Tomy Marie MD Attending Clinician Doctor Unassigned, [place] Attending Clinician Unavailable Bill COLES Attending Clinician Unavailable Bill Rose Attending Clinician CHARITY MCALLISTER Attending Clinician Unavailable Charity Mcallister MD Attending Clinician GADIEL KOEHLER Attending Clinician Unavailable Mike Lund Attending Clinician Unavailable NIKOLAI REEVES Attending Clinician Unavailable Eliseo Arce MD Attending Clinician Carol Ann IZQUIERDO, Sarai Lieberman Attending Clinician [phone] Ashly Pelletier MA Attending Clinician Unavailable Dagoberto Bass MD Attending Clinician [place] Evangelista Attending Clinician Lab, [facility] Pob I Attending Clinician Unavailable Monica Rodas MA Attending Clinician Unavailable Agustina Ortiz MA Attending Clinician Unavailable Andrez RAMIREZ, Rody Attending Clinician Unavailable Kirit Flood MD, V. Attending Clinician HEMATPOUR, BEVERLY Attending Clinician Unavailable Caridad MANAGER NIGHT, Gloria Attending Clinician Xiao RAMIREZ, Michael Corbin Attending Clinician Unavailable Team, [facility] Attending Clinician UnavailDO PORSHA Newell Attending Clinician Unavailable Gadiel Koehler MD Attending Clinician Tyrone JENKINS, Eveline Sierra Attending Clinician Stanislav RAMIREZ, Eladio Inman Attending Clinician Unavailable Geraldine SALGUERO, Leyda Attending Clinician [phone] Selvin RAMIREZ, Stefanie Attending Clinician Unavailable HOME MATTHEWS Admitting Clinician Unavailable ANETTE OLEA Admitting Clinician Unavailable TOMY MARIE Admitting Clinician Unavailable Tomy Marie MD Admitting Clinician Bill COLES Admitting Clinician Unavailable RahmanLele bird Admitting Clinician Unavailable Mike Lund Admitting Clinician Unavailable ELISEO ARCE Admitting Clinician Unavailable DO PORSHA STREETER Admitting Clinician Unavailable Payers Payer Name Policy Type Policy Number Effective Date Expiration Date S gabino [facility] [id number] 2012 STAR PLUS OON 00:[facility] [id number] 2019 DUAL COMPLETE HMO 00:00:00 [facility] STAR [id number] 2019 PLUS 00:00:00 MEDICAID [facility] [id number] 2020 00:00:00 [facility] [id number] 2019 HEALTH [facility] 00:00:00 [employer] MEDICARE ADV [id number] 2019 2019 00:00:00 00:00:00 Problems Condition Condition Condition Status Onset Resolution Last Treating Co mments Source Name Details Category Date Date Treatment Clinician Date Dyspnea, Dyspnea, Disease Active Unive rs unspecifie unspecifie 02-11 it y of d type d type 00:00: [place] 00 Medical Branch Gastropare Gastropare Disease Active Overview : Methodi sis sis 4-[address] [facility] note l might be different from the original. Added automatic ally from request for surgery [id number] Dysphagia Dysphagia Disease Active Overview: Methodi 4-[address] 00:00: [facility] 00 note l might be different from the original. 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 2020-10-15 Get PVI PVI 3-30 17:07:00 l ABLATION ABLATION 00:00: Patel n W/ CARTO / W/ CARTO / 00 GA / T GA / T Active 08/19/2020 [facility] Food Food Disease Active 2019-05 [...] N/V [facility] hoxazole - Clear 00:00: [facility] trimetho DA Active [facility] prim - Clear 00:00: [facility] codeine DA Active SV N/V [facility] -25 Clear 00:00: [place] [facility] Metoclop Propensi Active UT ramide ty [...] Hives Univers INGREDI 208 ity of 00:00: [place] [facility] TRIMETHO DRUG Active Hives 2018-0 [...] Stop Date Source Natural father Diabetes [facility] Natural father Other - see comments [facility] [place] [facility] father [facility] mother [facility] Social History Social Habit Start Date Stop Date Quantity Comments Source Gender identity 2020-10-06 Identifies as [facility] 15:23:56 female gender Hospital (finding) History SDOH [facility] Alcohol Frequency Hospita l History SDOH [facility] Alcohol Std Drinks Hospit al History SDOH [facility] Alcohol Binge [facility] Sexual orientation [facility] History of Social 2022-08-26 2022-08-[address] function 00:00:00 00:00:00 Hospital Exposure to 2022-04-30 2022-05-10 Yes University of SARS-CoV-2 (event) 00:00:00 10:25:00 [facility] Tobacco use and 2022-02-11 2022-02-11 Former smokeless Uni versity of exposure 00:00:00 00:00:00 tobacco user [facility] Tobacco Comment 2022-02-11 2022-02-11 Smokes approx 1-2 Un iversity of 00:00:00 00:00:00 cigarettes per [facility] day when she Branch smokes Alcohol intake 2020-12-08 2020-12-08 Current drinker [facility] 00:00:00 00:00:00 of [facility] (finding) Cigarettes smoked 2020-09-05 2020-09-[address] current (pack per 00:00:00 00:00:00 [facility] day) - Reported Cigarette 2020-09-05 2020-09-05 [facility] pack-years 00:00:00 00:00:00 Hospital Alcohol Comment 2016-09-23 2016-09-23 rare [facility] 00:00:00 00:00:00 Hospital History of tobacco 2011-09-29 User of smokeless University of use 00:00:00 tobacco [facility] Sex [facility]igned At [birth year] [facility] 00:00:00 00:00:00 Smoking Status Start Date Stop Date Source Ex-smoker 2022-02-11 00:00:00 2022-02-11 00:00:00 [facility]i ty of [place] [facility] Medications Ordered Filled Start Stop Current Ordering Indication Dosage Frequency Signature Comments Components Source Medication Medication Date Date Medication? Clinician (SIG) Name Name ravindra Yes [id number] Take one Univers ne-tenofovi 6-12 po daily ity of r alafen 00:00: [place] (DESCOVY) 00 Medical tablet Branch raltegravir Yes [id number] 400mg Take 1 Univers (ISENTRESS) 6-12 tablet by ity of 400 mg 00:00: mouth in [place] tablet 00 the Medical morning Branch and 1 tablet in the evening. DESCOVY Yes [id number] Take one Univers tablet 5-08 po daily ity of 00:00: [place] 00 Medical Branch raltegravir Yes [id number] 400mg Take 1 Univers (ISENTRESS) 5-08 tablet by ity of 400 mg 00:00: mouth in [place] tablet 00 the Medical morning Branch and 1 tablet in the evening. DESCOVY 2022- No [id number] Take one Univers tablet 5-08 06-12 po daily ity of 00:00: 00:00 [place] 00 :00 Medical Branch raltegravir 2022- No [id number] 400mg Take 1 Univers (ISENTRESS) 5-08 06-12 tablet by it y of 400 mg 00:00: 00:00 mouth in [place] tablet 00 :00 the Medical morning Branch and 1 tablet in the evening. emtmarianabi Yes [id number] Take one Univers ne-tenofovi 4-04 po daily ity of r alafen 00:00: [place] (DESCOVY) 00 Medical tablet Branch emtricitabi Yes [id number] Take one Univers ne-tenofovi 4-04 po daily ity of r alafen 00:00: [place] (DESCOVY) 00 Medical tablet Branch emtricitabi 2022- No [id number] Take one Univers ne-tenofovi 4-04 05-08 po daily ity of r alafen 00:00: 00:00 [place] (DESCOVY) 00 :00 Medical tablet Branch potassium 2021-05- No 10meq 10 mEq, IV Univers chloride in 07-11 Piggyback, i ty of water 10 20:00: 22:00 ONCE, 1 [place] mEq/100 mL 00 :00 dose, On Medic al RTU 10 mEq [facility] 05/10/22 at 1400, Administer over 60 Minutes, 100 mL magnesium 2021-05 No 800mg 800 mg, Uni vers oxide 07-11 Oral, ity of (MAG-OX 20:00: 19:37 ONCE, 1 [place] 400) tablet 00 :00 dose, On Medi porfirio 800 mg [facility] 05/10/22 at 1400, Routine KCL 2021-05 No 40meq 40 mEq, Univers (KLOR-CON 07-11 Oral, ity of M20) tablet 19:15: 19:37 [place]CE[place] 1 [place] 40 mEq 00 :00 dose, On Medical [facility] 05/10/22 at 1315, JOE hydralAZINE 2021-05 No 10mg 10 mg, Uni vers (APRESOLINE 07-11 Slow IV ity of ) injection 18:45: 18:42 [place] 10 mg 00 :00 ONCE, 1 Medical dose, On [facility] 05/10/22 at 1245, JOE NaCl 0.9% 2021-05 No 1000mL at 999 Uni vers (NS) bolus 07-11 mL/hr, ity of infusion 17:45: 20:00 1,000 mL, [place] 1,000 mL 00 :00 IV Medical Infusion, Branch ONCE, 1 dose, On [facility] 05/10/22 at 1145, JOE cefpodoxime 2021-05- No [id number] 100mg Take 1 Univers 100 mg 2-17 12-25 tablet by ity of tablet 00:00: 05:59 mouth in [place] 00 :00 the Medical morning Branch and 1 tablet in the evening. Do all this for 7 days. cefpodoxime 2021-05- No [id number] 100mg Take 1 Univers 100 mg 2-17 12-25 tablet by ity of tablet 00:00: 05:59 mouth in [place] 00 :00 the [facility] morning Branch and 1 tablet in the evening. Do all this for 7 days. cefpodoxime 2021-05- No [id number] 100mg Take 1 Univers 100 mg 2-17 12-25 tablet by ity of tablet 00:00: 05:59 mouth in [place] 00 :00 the Medical morning Branch and 1 tablet in the evening. Do all this for 7 days. butalbital- 2021-05- No 1{tbl} 1 tablet, Univers acetaminoph 2-16 12-15 Oral, ity of en-caff 00:15: 23:19 ONCE, 1 [place] (ESGIC) 00 :00 dose, On Medical 50-325-40 [place] Branch mg tablet 1 05/06/22 tablet at 1815, JOE NaCl 0.9% 2021-05 No 500mL at 999 Univ ers (NS) bolus 2-16 12-16 mL/hr, 500 it y of infusion 00:00: 00:17 mL, IV [place] 500 mL 00 :00 Infusion, Medical ONCE, 1 Branch dose, On [facility] 05/06/22 at 1800, JOE ketorolac 2021-05 No 15mg 15 mg, Unive rs (TORADOL) 2-15 12-15 Slow IV ity of injection 22:00: 22:19 Push, [place] 15 mg 00 :00 ONCE, 1 Medical dose, On Branch [facility] 05/06/22 at 1600, JOE NaCl 0.9% 2021-05- No 1000mL at 999 Uni vers (NS) bolus 2-15 12-15 mL/hr, ity of infusion 22:00: 23:41 1,000 mL, [place] 1,000 mL 00 :00 IV Medical Infusion, Branch ONCE, 1 dose, On [facility] 05/06/22 at 1600, JOE ondansetron 2021-05 No 8mg 8 mg, Slow Univers (ZOFRAN 2-15 12-15 IV Push, ity of (PF)) 21:15: 22:19 ONCE, 1 [place] injection 8 00 :00 dose, On Medi porfirio mg [facility] 05/06/22 at 1515, JOE ondansetron 2021-05 Yes [id number] 1-2 U nivers 4 mg tablet 2-15 tablets ity o f 00:00: every 8 [place] 00 hours as Medical needed for Branch nausea benzonatate 2021-05 Yes [id number] 200mg Take 1 Univers 200 mg 2-15 capsule by ity of capsule 00:00: mouth 3 (three) Medical times Branch daily as needed for Cough. albuterol 2021-05 Yes [id number] 2{puff} Inhale 2 Univers 90 2-15 Puffs ity of mcg/actuati 00:00: every 4 [place] on inhaler 00 (four) Medical hours as Branch needed for Wheezing or Shortness of Breath. butalbital- 2021-05 Yes [id number] 1{tbl} Take 1 Univers acetaminoph 2-15 tablet by ity of en-caff 00:00: mouth [place] 50-325-40 00 every 4 Medical mg tablet (four) Branch hours as needed (headache) . ondansetron 2021-05 Yes [id number] 1-2 U nivers 4 mg tablet 2-15 tablets ity o f 00:00: every 8 [place] 00 hours as Medical needed for Branch nausea benzonatate 2021-05 Yes [id number] 200mg Take 1 Univers 200 mg 2-15 capsule by ity of capsule 00:00: mouth 3 (three) Medical times Branch daily as needed for Cough. albuterol 2021-05 Yes [id number] 2{puff} Inhale 2 Univers 90 2-15 Puffs ity of mcg/actuati 00:00: every 4 [place] on inhaler 00 (four) Medical hours as Branch needed for Wheezing or Shortness of Breath. butalbital- 2021-05 Yes [id number] 1{tbl} Take 1 Univers acetaminoph 2-15 tablet by ity of en-caff 00:00: mouth [place] 50-325-40 00 every 4 Medical mg tablet (four) Branch hours as needed (headache) . ondansetron 2021-05 Yes [id number] 1-2 U nivers 4 mg tablet 2-15 tablets ity o f 00:00: every 8 [place] 00 hours as Medical needed for Branch nausea benzonatate 2021-05 Yes [id number] 200mg Take 1 Univers 200 mg 2-15 capsule by ity of capsule 00:00: mouth 3 00 (three) Medical times Branch daily as needed for Cough. albuterol 2021-05 Yes [id number] 2{puff} Inhale 2 Univers 90 2-15 Puffs ity of mcg/actuati 00:00: every 4 [place] on inhaler 00 (four) Medical hours as Branch needed for Wheezing or Shortness of Breath. butalbital- 2021-05 Yes [id number] 1{tbl} Take 1 Univers acetaminoph 2-15 tablet by ity of en-caff 00:00: mouth [place] 50-325-40 00 every 4 Medical mg tablet (four) Branch hours as needed (headache) . ondansetron 2021-05 Yes [id number] 1-2 U nivers 4 mg tablet 2-15 tablets ity o f 00:00: every 8 [place] 00 hours as Medical needed for Branch nausea benzonatate 2021-05 Yes [id number] 200mg Take 1 Univers 200 mg 2-15 capsule by ity of capsule 00:00: mouth 3 [place] 00 (three) Medical times Branch daily as needed for Cough. albuterol 2021-05 Yes [id number] 2{puff} Inhale 2 Univers 90 2-15 Puffs ity of mcg/actuati 00:00: every 4 [place] on inhaler 00 (four) Medical hours as Branch needed for Wheezing or Shortness of Breath. butalbital- 2021-05 Yes [id number] 1{tbl} Take 1 Univers acetaminoph 2-15 tablet by ity of en-caff 00:00: mouth [place] 50-325-40 00 every 4 Medical mg tablet (four) Branch hours as needed (headache) . ondansetron 2021-05 Yes [id number] 1-2 U nivers 4 mg tablet 2-15 tablets ity o f 00:00: every 8 [place] 00 hours as Medical needed for Branch nausea benzonatate 2021-05 Yes [id number] 200mg Take 1 Univers 200 mg 2-15 capsule by ity of capsule 00:00: mouth 3 [place] 00 (three) Medical times Branch daily as needed for Cough. albuterol 2021-05 Yes [id number] 2{puff} Inhale 2 Univers 90 2-15 Puffs ity of mcg/actuati 00:00: every 4 [place] on inhaler 00 (four) Medical hours as Branch needed for Wheezing or Shortness of Breath. butalbital- 2021-05 Yes [id number] 1{tbl} Take 1 Univers acetaminoph 2-15 tablet by ity of en-caff 00:00: mouth [place] 50-325-40 00 every 4 Medical mg tablet (four) Branch hours as needed (headache) . ondansetron 2021-05 Yes [id number] 1-2 U nivers 4 mg tablet 2-15 tablets ity o f 00:00: every 8 [place] 00 hours as Medical needed for Branch nausea benzonatate 2021-05 Yes [id number] 200mg Take 1 Univers 200 mg 2-15 capsule by ity of capsule 00:00: mouth 3 [place] 00 (three) Medical times Branch daily as needed for Cough. albuterol 2021-05 Yes [id number] 2{puff} Inhale 2 Univers 90 2-15 Puffs ity of mcg/actuati 00:00: every 4 [place] on inhaler 00 (four) Medical hours as Branch needed for Wheezing or Shortness of Breath. butalbital- 2021-05 Yes [id number] 1{tbl} Take 1 Univers acetaminoph 2-15 tablet by ity of en-caff 00:00: mouth [place] 50-325-40 00 every 4 Medical mg tablet (four) Branch hours as needed (headache) . ondansetron 2021-05 Yes [id number] 1-2 U nivers 4 mg tablet 2-15 tablets ity o f 00:00: every 8 [place] 00 hours as Medical needed for Branch nausea benzonatate 2021-05 Yes [id number] 200mg Take 1 Univers 200 mg 2-15 capsule by ity of capsule 00:00: mouth 3 00 (three) Medical times Branch daily as needed for Cough. albuterol 2021-05 Yes [id number] 2{puff} Inhale 2 Univers 90 2-15 Puffs ity of mcg/actuati 00:00: every 4 [place] on inhaler 00 (four) Medical hours as Branch needed for Wheezing or Shortness of Breath. butalbital- 2021-05 Yes [id number] 1{tbl} Take 1 Univers acetaminoph 2-15 tablet by ity of en-caff 00:00: mouth [place] 50-325-40 00 every 4 Medical mg tablet (four) Branch hours as needed (headache) . ondansetron 2021-05 Yes [id number] 1-2 U nivers 4 mg tablet 2-15 tablets ity o f 00:00: every 8 [place] 00 hours as Medical needed for Branch nausea benzonatate 2021-05 Yes [id number] 200mg Take 1 Univers 200 mg 2-15 capsule by ity of capsule 00:00: mouth 3 [place] 00 (three) Medical times Branch daily as needed for Cough. albuterol 2021-05 Yes [id number] 2{puff} Inhale 2 Univers 90 2-15 Puffs ity of mcg/actuati 00:00: every 4 [place] on inhaler 00 (four) Medical hours as Branch needed for Wheezing or Shortness of Breath. butalbital- 2021-05 Yes [id number] 1{tbl} Take 1 Univers acetaminoph 2-15 tablet by ity of en-caff 00:00: mouth [place] 50-325-40 00 every 4 Medical mg tablet (four) Branch hours as needed (headache) . ondansetron 2021-05 Yes [id number] 1-2 U nivers 4 mg tablet 2-15 tablets ity o f 00:00: every 8 [place] 00 hours as Medical needed for Branch nausea benzonatate 2021-05 Yes [id number] 200mg Take 1 Univers 200 mg 2-15 capsule by ity of capsule 00:00: mouth 3 00 (three) Medical times Branch daily as needed for Cough. albuterol 2021-05 Yes [id number] 2{puff} Inhale 2 Univers 90 2-15 Puffs ity of mcg/actuati 00:00: every 4 [place] on inhaler 00 (four) Medical hours as Branch needed for Wheezing or Shortness of Breath. butalbital- 2021-05 Yes [id number] 1{tbl} Take 1 Univers acetaminoph 2-15 tablet by ity of en-caff 00:00: mouth [place] 50-325-40 00 every 4 Medical mg tablet (four) Branch hours as needed (headache) . ondansetron 2021-05 Yes [id number] 1-2 U nivers 4 mg tablet 2-15 tablets ity o f 00:00: every 8 [place] 00 hours as Medical needed for Branch nausea benzonatate 2021-05 Yes [id number] 200mg Take 1 Univers 200 mg 2-15 capsule by ity of capsule 00:00: mouth 3 [place] 00 (three) Medical times Branch daily as needed for Cough. albuterol 2021-05 Yes [id number] 2{puff} Inhale 2 Univers 90 2-15 Puffs ity of mcg/actuati 00:00: every 4 [place] on inhaler 00 (four) Medical hours as Branch needed for Wheezing or Shortness of Breath. butalbital- 2021-05 Yes [id number] 1{tbl} Take 1 Univers acetaminoph 2-15 tablet by ity of en-caff 00:00: mouth [place] 50-325-40 00 every 4 Medical mg tablet (four) Branch hours as needed (headache) . [facility] 2021-05- No [id number] 2{tbl} Take 2 Univers r-ritonavir 2-15 12-21 tablets by i ty of (PAXLOVID, 00:00: 05:59 mouth in [place] EUA,) 300 00 :00 the Medical mg (150 mg morning Branch x 2)-100 mg and 2 tablet tablets in the evening. Do all this for 5 days. [facility] 2021-05- No [id number] 2{tbl} Take 2 Univers r-ritonavir 2-15 12-21 tablets by i ty of (PAXLOVID, 00:00: 05:59 mouth [place] EUA[place] 300 00 :00 the Medical mg (150 mg morning Branch x 2)-100 mg and 2 tablet tablets in the evening. Do all this for 5 days. [facility] 2021-05- No [id number] 2{tbl} Take 2 Univers r-ritonavir 2-15 12-21 tablets by i ty of (PAXLOVID, 00:00: 05:59 mouth in [place] EUA,) 300 00 :00 the Medical mg (150 mg morning Branch x 2)-100 mg and 2 tablet tablets in the evening. Do all this for 5 days. [facility] 2021-05- No [id number] 2{tbl} Take 2 Univers r-ritonavir 2-15 12-21 [...] 04/22/22 at 1645, Routine amoxicillin 2021-05 Yes [id number] 1{tbl} Take 1 Univers -clavulanat 2-01 [id number] tablet by i ty of e 875-125 00:00: mouth [place] mg per 00 every 12 Medical tablet (twelve) Branch hours. ondansetron 2021-05 Yes [id number] 4mg Take 1 Univers 4 mg 2- [id number] tablet by ity of disintegrat 00:00: mouth [place] ing tablet 00 every 8 Medica l (eight) Branch hours as needed for Nausea and Vomiting (N/V). amoxicillin 2021-05 Yes [id number] 1{tbl} Take 1 Univers -clavulanat 2- [id number] tablet by i ty of e 875-125 00:00: mouth [place] mg per 00 every 12 Medical tablet (twelve) Branch hours. ondansetron 2021-05 Yes [id number] 4mg Take 1 Univers 4 mg 2- 170006 tablet by ity of disintegrat 00:00: mouth [place] ing tablet 00 every 8 Medica l (eight) Branch hours as needed for Nausea and Vomiting (N/V). amoxicillin 2021-05 Yes [id number] 1{tbl} Take 1 Univers -clavulanat 2-01 [id number] tablet by i ty of e 875-125 00:00: mouth [place] mg per 00 every 12 Medical tablet (twelve) Branch hours. ondansetron 2021-05 Yes [id number] 4mg Take 1 Univers 4 mg 2-01 [id number] tablet by ity of disintegrat 00:00: mouth [place] ing tablet 00 every 8 Medica l (eight) Branch hours as needed for Nausea and Vomiting (N/V). amoxicillin 2021-05 Yes [id number] 1{tbl} Take 1 Univers -clavulanat 2-01 [id number] tablet by i ty of e 875-125 00:00: mouth [place] mg per 00 every 12 Medical tablet (twelve) Branch hours. ondansetron 2021-05 Yes [id number] 4mg Take 1 Univers 4 mg 2-01 [id number] tablet by ity of disintegrat 00:00: mouth [place] ing tablet 00 every 8 Medica l (eight) Branch hours as needed for Nausea and Vomiting (N/V). amoxicillin 2021-05 Yes [id number] 1{tbl} Take 1 Univers -clavulanat 2-01 [id number] tablet by i ty of e 875-125 00:00: mouth [place] mg per 00 every 12 Medical tablet (twelve) Branch hours. ondansetron 2021-05 Yes [id number] 4mg Take 1 Univers 4 mg 2-01 [id number] tablet by ity of disintegrat 00:00: mouth [place] ing tablet 00 every 8 Medica l (eight) Branch hours as needed for Nausea and Vomiting (N/V). amoxicillin 2021-05 Yes [id number] 1{tbl} Take 1 Univers -clavulanat 2-01 [id number] tablet by i ty of e 875-125 00:00: mouth [place] mg per 00 every 12 Medical tablet (twelve) Branch hours. ondansetron 2021-05 Yes [id number] 4mg Take 1 Univers 4 mg 2- [id number] tablet by ity of disintegrat 00:00: mouth [place] ing tablet 00 every 8 Medica l (eight) Branch hours as needed for Nausea and Vomiting (N/V). amoxicillin 2021-05 Yes [id number] 1{tbl} Take 1 Univers -clavulanat 2-01 [id number] tablet by i ty of e 875-125 00:00: mouth [place] mg per 00 every 12 Medical tablet (twelve) Branch hours. ondansetron 2021-05 Yes [id number] 4mg Take 1 Univers 4 mg 2-01 [id number] tablet by ity of disintegrat 00:00: mouth [place] ing tablet 00 every 8 Medica l (eight) Branch hours as needed for Nausea and Vomiting (N/V). amoxicillin 2021-05 Yes [id number] 1{tbl} Take 1 Univers -clavulanat 2-01 [id number] tablet by i ty of e 875-125 00:00: mouth [place] mg per 00 every 12 Medical tablet (twelve) Branch hours. ondansetron 2021-05 Yes [id number] 4mg Take 1 Univers 4 mg 2-01 [id number] tablet by ity of disintegrat 00:00: mouth [place] ing tablet 00 every 8 Medica l (eight) Branch hours as needed for Nausea and Vomiting (N/V). amoxicillin 2021-05 Yes [id number] 1{tbl} Take 1 Univers -clavulanat 2-01 [id number] tablet by i ty of e 875-125 00:00: mouth [place] mg per 00 every 12 Medical tablet (twelve) Branch hours. ondansetron 2021-05 Yes [id number] 4mg Take 1 Univers 4 mg 2- [id number] tablet by ity of disintegrat 00:00: mouth [place] ing tablet 00 every 8 Medica l (eight) Branch hours as needed for Nausea and Vomiting (N/V). amoxicillin 2021-05 Yes [id number] 1{tbl} Take 1 Univers -clavulanat 2-01 [id number] tablet by i ty of e 875-125 00:00: mouth [place] mg per 00 every 12 Medical tablet (twelve) Branch hours. ondansetron 2021-05 Yes [id number] 4mg Take 1 Univers 4 mg 2- [id number] tablet by ity of disintegrat 00:00: mouth [place] ing tablet 00 every 8 Medica l (eight) Branch hours as needed for Nausea and Vomiting (N/V). amoxicillin 2021-05 Yes [id number] 1{tbl} Take 1 Univers -clavulanat 2-01 [id number] tablet by i ty of e 875-125 00:00: mouth [place] mg per 00 every 12 Medical tablet (twelve) Branch hours. ondansetron 2021-05 Yes [id number] 4mg Take 1 Univers 4 mg 2- 424988 tablet by ity of disintegrat 00:00: mouth [place] ing tablet 00 every 8 Medica l (eight) Branch hours as needed for Nausea and Vomiting (N/V). amoxicillin 2021-05 Yes [id number] 1{tbl} Take 1 Univers -clavulanat 2-01 [id number] tablet by i ty of e 875-125 00:00: mouth [place] mg per 00 every 12 Medical tablet (twelve) Branch hours. ondansetron 2021-05 Yes [id number] 4mg Take 1 Univers 4 mg 2-01 [id number] tablet by ity of disintegrat 00:00: mouth [place] ing tablet 00 every 8 Medica l (eight) Branch hours as needed for Nausea and Vomiting (N/V). zoster 2021-05- No [id number] .5mL 0.5 mL by [facility] vaccine, 0-05 03- 9104 Intramuscu ity of recombinant 00:00: 04:59 lar route [place] (SHINGRIX, 00 :00 once now Medic al PF,) for 1 Branch injection dose. And repeat in 2-6 months zoster 2021-05- No [id number] .5mL 0.5 mL by [facility] vaccine, 0-05 03- 9104 Intramuscu ity of recombinant 00:00: 04:59 lar route [place] (SHINGRIX, 00 :00 once now Medic al PF,) for 1 Branch injection dose. And repeat in 2-6 months zoster 2021-05- No [id number] .5mL 0.5 mL by [facility] vaccine, 0-05 [...] o f 1 mg tablet 19:28: at [place] [address] bedtime. Medical Branch traZODone 0 Yes 50mg Take 50 mg Un matt 100 mg 9-27 by mouth ity of tablet 19:28: at [place] [address] bedtime. Medical Branch hydralAZINE 2021-0 Yes 25mg [...] o f 1 mg tablet 19:28: at [place] [address] bedtime. Medical Branch traZODone 2021-0 Yes 50mg Take 50 mg Un matt 100 mg 9-27 by mouth ity of tablet 19:28: at [place] [address] bedtime. Medical Branch hydralAZINE 2021-0 Yes 25mg [...] o f 1 mg tablet 19:28: at [place] [address] bedtime. Medical Branch traZODone 2-0 Yes 50mg Take 50 mg Un matt 100 mg 9-27 by mouth ity of tablet 19:28: at [place] [address] bedtime. Medical Branch hydralAZINE 2-0 Yes 25mg [...] o f 1 mg tablet 19:28: at [place] [address] bedtime. Medical Branch traZODone 2021-0 Yes 50mg Take 50 mg Un matt 100 mg 9-27 by mouth ity of tablet 19:28: at [place] [address] bedtime. Medical Branch hydralAZINE 2021-0 Yes 25mg [...] o f 1 mg tablet 19:28: at [place] [address] bedtime. Medical Branch traZODone 2021-0 Yes 50mg Take 50 mg Un matt 100 mg 9-27 by mouth ity of tablet 19:28: at [place] [address] bedtime. Medical Branch hydralAZINE 2021-0 Yes 25mg [...] o f 1 mg tablet 19:28: at [place] [address] bedtime. Medical Branch traZODone 2021-0 Yes 50mg Take 50 mg Un matt 100 mg 9-27 by mouth ity of tablet 19:28: at [place] [address] bedtime. Medical Branch hydralAZINE 2021-0 Yes 25mg [...] o f 1 mg tablet 19:28: at [place] [address] bedtime. Medical Branch traZODone 2021-0 Yes 50mg Take 50 mg Un matt 100 mg 9-27 by mouth ity of tablet 19:28: at [place] [address] bedtime. Medical Branch hydralAZINE 2021-0 Yes 25mg [...] o f 1 mg tablet 19:28: at [place] [address] bedtime. Medical Branch traZODone 2021-0 Yes 50mg Take 50 mg Un matt 100 mg 9- by mouth ity of tablet 19:28: at [place] [address] bedtime. Medical Branch hydralAZINE 2021-0 Yes 25mg [...] o f 1 mg tablet 19:28: at [place] [address] bedtime. Medical Branch traZODone 2-0 Yes 50mg Take 50 mg Un matt 100 mg 9-27 by mouth ity of tablet 19:28: at [place] [address] bedtime. Medical Branch hydralAZINE 2021-0 Yes 25mg [...] 100 mg 04 (two) Medical tablet times [place] daily. amLODIPine 2021-0 Yes 10mg Take 10 mg U nivers (NORVASC) 9- by mouth ity of 10 mg 19:28: daily. [place] tablet 04 Medical Branch clonazePAM 2021-0 Yes 1mg Take 1 mg Un matt (KLONOPIN) 9-27 by mouth ity o f 1 mg tablet 19:28: at [place] [address] bedtime. Medical Branch traZODone 2-0 Yes 50mg Take 50 mg Un matt 100 mg 9-27 by mouth ity of tablet 19:28: at [place] [address] bedtime. Medical Branch hydralAZINE 2-0 Yes 25mg [...] o f 1 mg tablet 19:28: at [place] [address] bedtime. Medical Branch traZODone 2021-0 Yes 50mg Take 50 mg Un matt 100 mg 9-27 by mouth ity of tablet 19:28: at [place] [address] bedtime. Medical Branch hydralAZINE 2021-0 Yes 25mg [...] o f 1 mg tablet 19:28: at [place] [address] bedtime. Medical Branch traZODone 2021-0 Yes 50mg Take 50 mg Un matt 100 mg 9-27 by mouth ity of tablet 19:28: at [place] [address] bedtime. Medical Branch hydralAZINE 2021-0 Yes 25mg [...] o f 1 mg tablet 19:28: at [place] [address] bedtime. Medical Branch traZODone 2021-0 Yes 50mg Take 50 mg Un matt 100 mg 9- by mouth ity of tablet 19:28: at [place] [address] bedtime. Medical Branch hydralAZINE 2021-0 Yes 25mg [...] o f 1 mg tablet 19:28: at [place] [address] bedtime. Medical Branch traZODone 2022-0 Yes 50mg Take 50 mg Un matt 100 mg 9-27 by mouth ity of tablet 19:28: at [place] [address] bedtime. Medical Branch hydralAZINE 2-0 Yes 25mg [...] o f 1 mg tablet 19:28: at [place] [address] bedtime. Medical Branch traZODone 2-0 Yes 50mg Take 50 mg Un matt 100 mg 9-27 by mouth ity of tablet 19:28: at [place] [address] bedtime. Medical Branch hydralAZINE 2021-0 Yes 25mg [...] o f 1 mg tablet 19:28: at [place] [address] bedtime. Medical Branch traZODone 2022-0 Yes 50mg Take 50 mg Un matt 100 mg 9-27 by mouth ity of tablet 19:28: at [place] [address] bedtime. Medical Branch hydralAZINE 2-0 Yes 25mg [...] o f 1 mg tablet 19:28: at [place] [address] bedtime. Medical Branch traZODone 2-0 Yes 50mg Take 50 mg Un matt 100 mg 9-27 by mouth ity of tablet 19:28: at [place] [address] bedtime. Medical Branch hydralAZINE 2-0 Yes 25mg [...] o f 1 mg tablet 19:28: at [place] 04 bedtime. Medical Branch traZODone 2021-0 Yes 50mg Take 50 mg Un matt 100 mg 9-27 by mouth ity of tablet 19:28: at [place] [address] bedtime. Medical Branch hydralAZINE 2021-0 Yes 25mg Take 25 mg [facility] (APRESOLINE 9-27 by mouth ity of ) 25 mg 19:28: daily. [place] tablet 04 Medical Branch lisinopril 2021-0 Yes 40mg Take 40 mg U nivers (PRINIVIL,Z 9-27 by mouth 2 it y of ESTRIL) 40 19:28: (two) [place] mg tablet 04 times Medical daily. Branch metoprolol 2021-0 Yes 100mg Take 100 Un amtt tartrate [...] o f 1 mg tablet 19:28: at [place] [address] bedtime. Medical Branch traZODone 2021-0 Yes 50mg Take 50 mg Un mtat 100 mg 9-27 by mouth ity of tablet 19:28: at [place] [address] bedtime. Medical Branch hydralAZINE 2021-0 Yes 25mg [...] o f 1 mg tablet 19:28: at [place] [address] bedtime. Medical Branch traZODone Yes 50mg Take 50 mg Un matt 100 mg 02-16 by mouth ity of tablet 19:28: at [place] [address] bedtime. [facility] Branch cefpodoxime 2021- No [id number] 200mg Take 1 [facility] 200 mg 02-16 tablet by ity of tablet 00:00: 04:59 mouth in [place] 00 :00 the Medical morning Branch and 1 tablet in the evening. Do all this for 3 days. cefpodoxime 2021- No [id number] 200mg Take 1 [facility] 200 mg 02-16 tablet by ity of tablet 00:00: 04:59 mouth in [place] 00 :00 the [facility] and 1 tablet in the evening. Do all this for 3 days. haloperidol 2021- No 2mg 2 mg, Slow [facility] lactate 02-15 IV Push, ity of (HALDOL) 09:00: 09:12 ONCE, 1 [place] injection 2 00 :00 dose, On Medi porfirio mg Mon [place] 02/15/22 at 0400, Routine hydroCHLORO Yes 25mg 25 mg, Univ ers thiazide 9-25 Oral, ity of (ESIDRIX) 14:00: DAILY, [place] capsule 25 00 First dose Med ical mg on [place] [facility] 02/14/22 at 0900, Until Discontinu ed, Routine butalbital- Yes 1{tbl} 1 tablet, [facility] acetaminoph 24 Oral, ity of en-caff 18:46: Q6HPRN, [place] (ESGIC) 06 Starting Medical 50-325-40 on Advanced [...] dose [place] mg 00 on [facility] 02/11/22 at Branch 1300, Until Discontinu ed, Routine raltegravir 2021-0 Yes 400mg 400 mg, Un matt (ISENTRESS) 02-11 Oral, BID, it y of tablet 400 18:00: First dose [place] mg 00 on [facility] 02/11/22 at Branch 1300, Until Discontinu ed, JOE metoprolol 2021-0 Yes 100mg 100 mg, Uni vers tartrate 02-11 Oral, BID, ity o f (LOPRESSOR) 18:00: First dose [place] tablet 100 00 on [facility] mg 02/11/22 at Branch 1300, Until Discontinu ed, Routine lisinopriL 0 Yes 40mg 40 mg, Unive rs (PRINIVIL,Z 02-11 Oral, BID, it y of ESTRIL) 18:00: First [place] tablet 40 00 on [facility] mg 02/11/22 at Branch 1300, Until Discontinu ed, Routine emtricitabi 0 Yes 1{tbl} 1 tablet, [place] [facility] 02-11 Oral, ity of r alafen 18:00: DAILY, [place] (DESCOVY) 00 First dose Medi porfirio tablet 1 on [facility] tablet 02/11/22 at 1300, Until Discontinu ed, Routine ipratropium 0 Yes .5mg 0.5 mg, Uni vers (ATROVENT) 02-11 Inhalation ity of 0.02 % 17:57: , QIDPRN, [place] nebulizer 10 Starting Medica l solution on [facility] Branch 0.5 mg 02/11/22 at 1257, Until Discontinu ed, Routine, Wheezing, Shortness of Breath amLODIPine 2021-0 Yes 10mg 10 mg, Unive rs (NORVASC) 02-11 Oral, ity of tablet 10 17:30: DAILY, [place] mg 00 First dose Medical (after Branch last modificati on) on [facility] 02/11/22 at 1230, Until Discontinu ed, Routine hydrALAZINE 0 2022- No 25mg 25 mg, Uni vers (APRESOLINE 02-11- Oral, ity of ) tablet 25 17:30: 12:54 DAILY, [place] mg 00 :55 First dose Medical (after Branch last modificati on) on [facility] 02/11/22 at 1230, Until Discontinu ed, Routine HYDROcodone 2021- No 1{tbl} 1 tablet, Univers -acetaminop 02-11 Oral, ity of hen (NORCO 14:11: 17:37 Q6HPRN, [place] 5) 5-325 mg 03 :24 Starting Medi porfirio tablet 1 on [facility] Branch tablet 02/11/22 at 0911, Until Tue02/12/22 at 1237, Routine, Pain (scale 7-10) melatonin Yes 3mg 3 mg, Univers (MELATIN) 02-11 Oral, ity of tablet 3 mg 14:08: QHSPRN, [place] 17 Starting Medical on [facility] Branch 02/11/22 at 0908, Until Discontinu ed, Routine, Insomnia acetaminoph 2021- No 1{tbl} 1 tablet, Univers en-codeine 02-11 Oral, ity of (TYLENOL 14:06: 17:37 [facility] [place] #3) 300-30 19 :24 Starting Medic al mg tablet 1 on [facility] tablet 02/11/22 at 0906, Until Tue02/12/22 at 1237, Routine, Pain (scale 4-6) sennosides- Yes 1{tbl} 1 tablet, Univers docusate 02-11 Oral, ity of sodium 14:06: QDAILYPRN, [place] (SENOKOT-S) 09 Starting Medi porfirio 8.6-50 mg on [facility] per tablet 02/11/22 at 1 tablet 0906, Until Discontinu ed, Routine, Constipati on ondansetron 0 Yes 4mg 4 mg, Slow Univers (ZOFRAN 02-11 IV Push, ity of (PF)) 14:05: [place] injection 4 59 Starting Medi porfirio mg on [facility] Branch 02/11/22 at 0905, Until Discontinu ed, [...] ity of ) 25 mg 09:10: daily. [facility] 54 Medical Branch amLODIPine 0 Yes 10mg Take 10 mg U nivers (NORVASC) 02-11 by mouth ity of 10 mg 09:10: daily. [facility] 54 [facility] Branch piperacilli 2021- No 3.375g [...] of therapy: 72 hours iopamidol 2021- No [id number] 60mL 60 mL, Univers (ISOVUE 02-11 Intravenou [...] 02/11/22 at 0015, JOE emtricitabi 0 Yes [id number] Take one Univers ne-tenofovi 9-12 po daily ity of r alafen 00:00: [place] (DESCOVY) Medical tablet Branch emtricitabi Yes [id number] Take one Univers ne-tenofovi 9-12 po daily ity of r alafen 00:00: [place] (DESCOVY) 00 Medical tablet Branch emtricitabi Yes [id number] Take one Univers ne-tenofovi 9-12 po daily ity of r alafen 00:00: [place] (DESCOVY) 00 Medical tablet Branch emtricitabi Yes [id number] Take one Univers ne-tenofovi 9-12 po daily ity of r alafen 00:00: [place] (DESCOVY) 00 Medical tablet Branch emtricitabi Yes [id number] Take one Univers ne-tenofovi 9-12 po daily ity of r alafen 00:00: [place] (DESCOVY) 00 Medical tablet Branch emtricitabi Yes [id number] Take one Univers ne-tenofovi 9-12 po daily ity of r alafen 00:00: [place] (DESCOVY) 00 Medical tablet [facility] Yes [id number] Take one Univers ne-tenofovi 9-12 po daily ity of r alafen 00:00: [place] (DESCOVY) 00 Medical tablet Branch emtricita Yes [id number] Take one Univers ne-tenofovi 9-12 po daily ity of r alafen 00:00: [place] (DESCOVY) 00 Medical tablet Branch emtricita Yes [id number] Take one Univers ne-tenofovi 9-12 po daily ity of r alafen 00:00: [place] (DESCOVY) 00 Medical tablet Branch emtricita Yes [id number] Take one Univers ne-tenofovi 9-12 po daily ity of r alafen 00:00: [place] (DESCOVY) 00 Medical tablet [facility] [id number] Take one Univers ne-tenofovi 9-12 po daily ity of r alafen 00:00: [place] (DESCOVY) 00 Medical [facility] Yes [id number] Take one Univers ne-tenofovi 9-12 po daily ity of r alafen 00:00: [place] (DESCOVY) 00 Medical [facility] Yes [id number] Take one Univers ne-tenofovi 9-12 po daily ity of r alafen 00:00: [place] (DESCOVY) 00 Medical tablet Branch emtricita Yes [id number] Take one Univers ne-tenofovi 9-12 po daily ity of r alafen 00:00: [place] (DESCOVY) 00 Medical tablet Branch emtricita Yes [id number] Take one Univers ne-tenofovi 9-12 po daily ity of r alafen 00:00: [place] (DESCOVY) 00 Medical tablet Branch emtricita Yes [id number] Take one Univers ne-tenofovi 9-12 po daily ity of r alafen 00:00: [place] (DESCOVY) 00 Medical tablet Branch emtricita Yes [id number] Take one Univers ne-tenofovi 9-12 po daily ity of r alafen 00:00: [place] (DESCOVY) 00 Medical tablet Branch emtricitabi 2022- No [id number] Take one Univers ne-tenofovi 02-01-04 po daily ity of r alafen 00:00: 00:00 [place] (DESCOVY) 00 :00 Medical tablet Branch emtricitabi 2021-0 3- No [id number] Take one Univers ne-arianofovi 02-01- po daily ity of r alafen 00:00: 00:00 [place] (DESCOVY) 00 :00 Medical tablet Branch naproxen 2021-0 Yes [id number] 500mg Take 1 U nivers (NAPROSYN) 7-24 tablet by ity of 500 mg 00:00: mouth in [place] tablet 00 the Medical morning Branch and 1 tablet in the evening. Take with meals. methocarbam 2021-0 Yes [id number] 500mg Take 1 Univers oL 500 mg 7-24 tablet by ity o f tablet 00:00: mouth 4 [place] ([facility]) Medical times [place] daily. naproxen 2021-0 Yes [id number] 500mg Take 1 U nivers (NAPROSYN) 7-24 tablet by ity of 500 mg 00:00: mouth in [place] tablet 00 the Medical morning Branch and 1 tablet in the evening. Take with meals. methocarbam 2021-0 Yes [id number] 500mg Take 1 Univers oL 500 mg 7-24 tablet by ity o f tablet 00:00: mouth 4 [place] ([facility]) Medical times Branch daily. naproxen 2-0 Yes [id number] 500mg Take 1 U nivers (NAPROSYN) 7-24 tablet by ity of 500 mg 00:00: mouth in [place] tablet 00 the Medical morning Branch and 1 tablet in the evening. Take with meals. methocarbam 2022-0 Yes [id number] 500mg Take 1 Univers oL 500 mg 7-24 tablet by ity o f tablet 00:00: mouth 4 [place] ([facility]) Medical times Branch daily. naproxen 2-0 2022- No [id number] 500mg Take 1 Univers (NAPROSYN) 7-24 10-14 tablet by ity of 500 mg 00:00: 00:00 mouth in [place] tablet 00 :00 the Medical morning Branch and 1 tablet in the evening. Take with meals. methocarbam 2021- No [id number] 500mg Take 1 [facility] oL 500 mg 12-13 tablet by ity of tablet 00:00: 00:00 mouth 4 [place] 00 :00 (four) Medical times Branch daily. naproxen 2021- No [id number] 500mg Take 1 Univers (NAPROSYN) 12-13 tablet by ity of 500 mg 00:00: 00:00 mouth in [place] tablet 00 :00 the Medical morning Branch and 1 tablet in the evening. Take with meals. methocarbam 2021- No [id number] 500mg Take 1 [facility] oL 500 mg 12-13 tablet by ity of tablet 00:00: 00:00 mouth 4 [place] 00 :00 (four) Medical times Branch daily. esomeprazol 2021- No 40mg Take 40 mg Univers e (NEXIUM) 11-20 by mouth 2 it y of 40 mg 09:12: 00:00 (two) [place] capsule 03 :00 times Medical daily. Branch amiodarone No 100mg Take 100 U nivers 100 mg 11-20 mg by ity of tablet 09:11: 00:00 mouth [place] 57 :00 daily. Medical Branch apixaban No 5mg Take 5 mg Uni vers (ELIQUIS) 5 11-20 by mouth 2 i ty of mg tablet 09:11: 00:00 (two) [place] 35 :00 times Medical daily. Branch traZODONE 2021- No Take by [facility] ers (DESYREL) 11-20 mouth at ity o f 10 mg/mL 09:10: 00:00 bedtime. [place] oral 28 :00 Medical suspension Branch hydralAZINE Yes 25mg Take 25 mg Univers (APRESOLINE 11-20 by mouth ity of ) 25 mg 08:47: daily. [place] tablet 47 Medical Branch cephALEXin 2021- No [id number] 500mg Take 1 Univers (KEFLEX) 10-24 capsule by ity of 500 mg 00:00: 00:00 mouth 4 [place] capsule 00 :00 (four) Medical times Branch daily. acetaminoph 2021- No [id number] 1{tbl} Take 1 U nivers en-codeine 6-11-20 tablet by ity of (TYLENOL-CO 00:00: 00:00 mouth [place] DEINE #3) 00 :00 every 4 Medical 300-30 mg (four) Branch tablet hours as needed for Pain (scale 7-10). Indication s: acute pain buPROPion Yes [id number] 150mg Take 1 U nivers XL 4-12 tablet by ity of (WELLBUTRIN 00:00: mouth [place] XL) 150 mg 00 daily. Medical 24 hr Branch tablet busPIRone Yes [id number] 30mg Take 1 Un matt 30 mg 4-12 tablet by ity of tablet 00:00: mouth 2 [place] 00 (two) Medical times Branch daily. SERTraline Yes [id number] 200mg Take 2 Univers 100 mg 4-12 tablets by ity of tablet 00:00: mouth [place] 00 daily. Medical Branch buPROPion Yes [id number] 150mg Take 1 U nivers XL 4-12 tablet by ity of (WELLBUTRIN 00:00: mouth [place] XL) 150 mg 00 daily. Medical 24 hr Branch tablet busPIRone 2021-0 Yes [id number] 30mg Take 1 Un matt 30 mg 4-12 tablet by ity of tablet 00:00: mouth 2 [place] 00 (two) Medical times Branch daily. SERTraline 2021-0 Yes [id number] 200mg Take 2 Univers 100 mg 4-12 tablets by ity of tablet 00:00: mouth [place] 00 daily. Medical Branch buPROPion 2021-0 Yes [id number] 150mg Take 1 U nivers XL 4-12 tablet by ity of (WELLBUTRIN 00:00: mouth [place] XL) 150 mg 00 daily. Medical 24 hr Branch tablet busPIRone 2021-0 Yes [id number] 30mg Take 1 Un matt 30 mg 4-12 tablet by ity of tablet 00:00: mouth 2 [place] 00 (two) Medical times Branch daily. SERTraline 2021-0 Yes [id number] 200mg Take 2 Univers 100 mg 4-12 tablets by ity of tablet 00:00: mouth [place] 00 daily. Medical Branch buPROPion 2021-0 Yes [id number] 150mg Take 1 U nivers XL 4-12 tablet by ity of (WELLBUTRIN 00:00: mouth [place] XL) 150 mg 00 daily. Medical 24 hr Branch tablet busPIRone 2021-0 Yes [id number] 30mg Take 1 Un matt 30 mg 4-12 tablet by ity of tablet 00:00: mouth 2 [place] 00 (two) Medical times Branch daily. SERTraline 2021-0 Yes [id number] 200mg Take 2 Univers 100 mg 4-12 tablets by ity of tablet 00:00: mouth [place] 00 daily. Medical Branch buPROPion 2021-0 Yes [id number] 150mg Take 1 U nivers XL 4-12 tablet by ity of (WELLBUTRIN 00:00: mouth [place] XL) 150 mg 00 daily. Medical 24 hr Branch tablet busPIRone 2021-0 Yes [id number] 30mg Take 1 Un matt 30 mg 4-12 tablet by ity of tablet 00:00: mouth 2 [place] 00 (two) Medical times Branch daily. SERTraline 2021-0 Yes [id number] 200mg Take 2 Univers 100 mg 4-12 tablets by ity of tablet 00:00: mouth [place] 00 daily. Medical Branch buPROPion 2021-0 Yes [id number] 150mg Take 1 U nivers XL 4-12 tablet by ity of (WELLBUTRIN 00:00: mouth [place] XL) 150 mg 00 daily. Medical 24 hr Branch tablet busPIRone 2021-0 Yes [id number] 30mg Take 1 Un matt 30 mg 4-12 tablet by ity of tablet 00:00: mouth 2 [place] 00 (two) Medical times Branch daily. SERTraline 2021-0 Yes [id number] 200mg Take 2 Univers 100 mg 4-12 tablets by ity of tablet 00:00: mouth [place] 00 daily. Medical Branch buPROPion 2021-0 Yes [id number] 150mg Take 1 U nivers XL 4-12 tablet by ity of (WELLBUTRIN 00:00: mouth [place] XL) 150 mg 00 daily. Medical 24 hr Branch tablet busPIRone 2021-0 Yes [id number] 30mg Take 1 Un matt 30 mg 4-12 tablet by ity of tablet 00:00: mouth 2 [place] 00 (two) Medical times Branch daily. SERTraline 2021-0 Yes [id number] 200mg Take 2 Univers 100 mg 4-12 tablets by ity of tablet 00:00: mouth [place] 00 daily. Medical Branch buPROPion 2021-0 Yes [id number] 150mg Take 1 U nivers XL 4-12 tablet by ity of (WELLBUTRIN 00:00: mouth [place] XL) 150 mg 00 daily. Medical 24 hr Branch tablet busPIRone 2021-0 Yes [id number] 30mg Take 1 Un matt 30 mg 4-12 tablet by ity of tablet 00:00: mouth 2 [place] 00 (two) Medical times Branch daily. SERTraline 2021-0 Yes [id number] 200mg Take 2 [facility] 100 mg 4-12 tablets by ity of tablet 00:00: mouth [place] 00 daily. Medical Branch buPROPion 2021-0 Yes [id number] 150mg Take 1 U nivers XL 4-12 tablet by ity of (WELLBUTRIN 00:00: mouth [place] XL) 150 mg 00 daily. Medical 24 hr Branch tablet busPIRone 2021-0 Yes [id number] 30mg Take 1 Un matt 30 mg 4-12 tablet by ity of tablet 00:00: mouth 2 [place] 00 (two) Medical times Branch daily. SERTraline 2021-0 Yes [id number] 200mg Take 2 Univers 100 mg 4-12 tablets by ity of tablet 00:00: mouth [place] 00 daily. Medical Branch buPROPion 2021-0 Yes [id number] 150mg Take 1 U nivers XL 4-12 tablet by ity of (WELLBUTRIN 00:00: mouth [place] XL) 150 mg 00 daily. Medical 24 hr Branch tablet busPIRone 2021-0 Yes [id number] 30mg Take 1 Un matt 30 mg 4-12 tablet by ity of tablet 00:00: mouth 2 [place] 00 (two) Medical times Branch daily. SERTraline 2021-0 Yes [id number] 200mg Take 2 Univers 100 mg 4-12 tablets by ity of tablet 00:00: mouth [place] 00 daily. Medical Branch buPROPion 2021-0 Yes [id number] 150mg Take 1 U nivers XL 4-12 tablet by ity of (WELLBUTRIN 00:00: mouth [place] XL) 150 mg 00 daily. Medical 24 hr Branch tablet busPIRone 2021-0 Yes [id number] 30mg Take 1 Un matt 30 mg 4-12 tablet by ity of tablet 00:00: mouth 2 [place] 00 (two) Medical times Branch daily. SERTraline 2021-0 Yes [id number] 200mg Take 2 [facility] 100 mg 4-12 tablets by ity of tablet 00:00: mouth [place] 00 daily. Medical Branch buPROPion 2021-0 Yes [id number] 150mg Take 1 U nivers XL 4-12 tablet by ity of (WELLBUTRIN 00:00: mouth [place] XL) 150 mg 00 daily. Medical 24 hr Branch tablet busPIRone 2021-0 Yes [id number] 30mg Take 1 Un matt 30 mg 4-12 tablet by ity of tablet 00:00: mouth 2 [place] 00 (two) Medical times Branch daily. SERTraline 2021-0 Yes [id number] 200mg Take 2 Univers 100 mg 4-12 tablets by ity of tablet 00:00: mouth [place] 00 daily. Medical Branch buPROPion 2021-0 Yes [id number] 150mg Take 1 U nivers XL 4-12 tablet by ity of (WELLBUTRIN 00:00: mouth [place] XL) 150 mg 00 daily. Medical 24 hr Branch tablet busPIRone 2021-0 Yes [id number] 30mg Take 1 Un matt 30 mg 4-12 tablet by ity of tablet 00:00: mouth 2 [place] 00 (two) Medical times Branch daily. SERTraline 2021-0 Yes [id number] 200mg Take 2 Univers 100 mg 4-12 tablets by ity of tablet 00:00: mouth [place] 00 daily. Medical Branch buPROPion 2021-0 Yes [id number] 150mg Take 1 U nivers XL 4-12 tablet by ity of (WELLBUTRIN 00:00: mouth [place] XL) 150 mg 00 daily. Medical 24 hr Branch tablet busPIRone 2021-0 Yes [id number] 30mg Take 1 Un matt 30 mg 4-12 tablet by ity of tablet 00:00: mouth 2 [place] 00 (two) Medical times Branch daily. SERTraline 2021-0 Yes [id number] 200mg Take 2 Univers 100 mg 4-12 tablets by ity of tablet 00:00: mouth [place] 00 daily. Medical Branch buPROPion 2021-0 Yes [id number] 150mg Take 1 U nivers XL 4-12 tablet by ity of (WELLBUTRIN 00:00: mouth [place] XL) 150 mg 00 daily. Medical 24 hr Branch tablet busPIRone 2021-0 Yes [id number] 30mg Take 1 Un matt 30 mg 4-12 tablet by ity of tablet 00:00: mouth 2 00 (two) Medical times Branch daily. SERTraline 2021-0 Yes [id number] 200mg Take 2 [facility] 100 mg 4-12 tablets by ity of tablet 00:00: mouth [place] 00 daily. Medical Branch buPROPion 2021-0 Yes [id number] 150mg Take 1 U nivers XL 4-12 tablet by ity of (WELLBUTRIN 00:00: mouth [place] XL) 150 mg 00 daily. Medical 24 hr Branch tablet busPIRone 2021-0 Yes [id number] 30mg Take 1 Un matt 30 mg 4-12 tablet by ity of tablet 00:00: mouth 2 (two) Medical times Branch daily. SERTraline 2021-0 Yes [id number] 200mg Take 2 [facility] 100 mg 4-12 tablets by ity of tablet 00:00: mouth [place] 00 daily. Medical Branch buPROPion 2021-0 Yes [id number] 150mg Take 1 U nivers XL 4-12 tablet by ity of (WELLBUTRIN 00:00: mouth [place] XL) 150 mg 00 daily. Medical 24 hr Branch tablet busPIRone 2021-0 Yes [id number] 30mg Take 1 Un matt 30 mg 4-12 tablet by ity of tablet 00:00: mouth 2 (two) Medical times Branch daily. SERTraline 2021-0 Yes [id number] 200mg Take 2 [facility] 100 mg 4-12 tablets by ity of tablet 00:00: mouth [place] 00 daily. Medical Branch buPROPion 2021-0 Yes [id number] 150mg Take 1 U nivers XL 4-12 tablet by ity of (WELLBUTRIN 00:00: mouth [place] XL) 150 mg 00 daily. Medical 24 hr Branch tablet busPIRone 2021-0 Yes [id number] 30mg Take 1 Un matt 30 mg 4-12 tablet by ity of tablet 00:00: mouth 2 (two) Medical times Branch daily. SERTraline 2021-0 Yes [id number] 200mg Take 2 [facility] 100 mg 4-12 tablets by ity of tablet 00:00: mouth [place] 00 daily. Medical Branch buPROPion 2021-0 Yes [id number] 150mg Take 1 U nivers XL 4-12 tablet by ity of (WELLBUTRIN 00:00: mouth [place] XL) 150 mg 00 daily. Medical 24 hr Branch tablet busPIRone 2021-0 Yes [id number] 30mg Take 1 Un matt 30 mg 4-12 tablet by ity of tablet 00:00: mouth 2 [place] 00 (two) Medical times Branch daily. SERTraline 2021-0 Yes [id number] 200mg Take 2 [facility] 100 mg 4-12 tablets by ity of tablet 00:00: mouth [place] 00 daily. Medical Branch buPROPion 2021-0 Yes [id number] 150mg Take 1 U nivers XL 4-12 tablet by ity of (WELLBUTRIN 00:00: mouth [place] XL) 150 mg 00 daily. Medical 24 hr Branch tablet busPIRone 2021-0 Yes [id number] 30mg Take 1 Un matt 30 mg 4-12 tablet by ity of tablet 00:00: mouth 2 [place] 00 (two) Medical times Branch daily. SERTraline 2021-0 Yes [id number] 200mg Take 2 [facility] 100 mg 4-12 tablets by ity of tablet 00:00: mouth [place] 00 daily. Medical Branch buPROPion 2021-0 Yes [id number] 150mg Take 1 U nivers XL 4-12 tablet by ity of (WELLBUTRIN 00:00: mouth [place] XL) 150 mg 00 daily. Medical 24 hr Branch tablet busPIRone 2021-0 Yes [id number] 30mg Take 1 Un matt 30 mg 4-12 tablet by ity of tablet 00:00: mouth 2 [place] 00 (two) Medical times Branch daily. SERTraline 2021-0 Yes [id number] 200mg Take 2 [facility] 100 mg 4-12 tablets by ity of tablet 00:00: mouth [place] 00 daily. Medical Branch buPROPion 2021-0 Yes [id number] 150mg Take 1 U nivers XL 4-12 tablet by ity of (WELLBUTRIN 00:00: mouth [place] XL) 150 mg 00 daily. Medical 24 hr Branch tablet busPIRone 2021-0 Yes [id number] 30mg Take 1 Un matt 30 mg 4-12 tablet by ity of tablet 00:00: mouth 2 [place] 00 (two) Medical times Branch daily. SERTraline 2021-0 Yes [id number] 200mg Take 2 [facility] 100 mg 4-12 tablets by ity of tablet 00:00: mouth [place] 00 daily. Medical Branch raltegravir 2021-0 Yes [id number] 400mg Take 1 [facility] (ISENTRESS) 3-28 tablet by ity of 400 mg 00:00: mouth 2 [place] tablet 00 (two) Medical times Branch daily. raltegravir 2021-0 Yes [id number] 400mg Take 1 [facility] (ISENTRESS) 3-28 tablet by ity of 400 mg 00:00: mouth 2 [place] tablet 00 (two) Medical times Branch daily. raltegravir 2021-0 Yes [id number] 400mg Take 1 [facility] (ISENTRESS) 3-28 tablet by ity of 400 mg 00:00: mouth 2 [place] tablet 00 (two) Medical times Branch daily. raltegravir 2021-0 Yes [id number] 400mg Take 1 [facility] (ISENTRESS) 3-28 tablet by ity of 400 mg 00:00: mouth 2 [place] tablet 00 (two) Medical times Branch daily. raltegravir 2021-0 Yes [id number] 400mg Take 1 [facility] (ISENTRESS) 3-28 tablet by ity of 400 mg 00:00: mouth 2 [place] tablet 00 (two) Medical times Branch daily. raltegravir 2021-0 Yes [id number] 400mg Take 1 [facility] (ISENTRESS) 3-28 tablet by ity of 400 mg 00:00: mouth 2 [place] tablet 00 (two) Medical times Branch daily. raltegravir 2021-0 Yes [id number] 400mg Take 1 [facility] (ISENTRESS) 3-28 tablet by ity of 400 mg 00:00: mouth 2 [place] tablet 00 (two) Medical times Branch daily. raltegravir 2021-0 Yes [id number] 400mg Take 1 [facility] (ISENTRESS) 3-28 tablet by ity of 400 mg 00:00: mouth 2 [place] tablet 00 (two) Medical times Branch daily. raltegravir 2021-0 Yes [id number] 400mg Take 1 [facility] (ISENTRESS) 3-28 tablet by ity of 400 mg 00:00: mouth 2 [place] tablet 00 (two) Medical times Branch daily. raltegravir 2022-0 Yes [id number] 400mg Take 1 [facility] (ISENTRESS) 3-28 tablet by ity of 400 mg 00:00: mouth 2 [place] tablet 00 (two) Medical times Branch daily. raltegravir 2022-0 Yes [id number] 400mg Take 1 [facility] (ISENTRESS) 3-28 tablet by ity of 400 mg 00:00: mouth 2 [place] tablet 00 (two) Medical times Branch daily. raltegravir 2022-0 Yes [id number] 400mg Take 1 [facility] (ISENTRESS) 3-28 tablet by ity of 400 mg 00:00: mouth 2 [place] tablet 00 (two) Medical times Branch daily. raltegravir 2022-0 Yes [id number] 400mg Take 1 [facility] (ISENTRESS) 3-28 tablet by ity of 400 mg 00:00: mouth 2 [place] tablet 00 (two) Medical times Branch daily. raltegravir 2-0 Yes [id number] 400mg Take 1 [facility] (ISENTRESS) 3-28 tablet by ity of 400 mg 00:00: mouth 2 [place] tablet 00 (two) Medical times Branch daily. raltegravir 2022-0 Yes [id number] 400mg Take 1 [facility] (ISENTRESS) 3-28 tablet by ity of 400 mg 00:00: mouth 2 [place] tablet 00 (two) Medical times Branch daily. raltegravir 2022-0 Yes [id number] 400mg Take 1 [facility] (ISENTRESS) 3-28 tablet by ity of 400 mg 00:00: mouth 2 [place] tablet 00 (two) Medical times Branch daily. raltegravir 2022-0 Yes [id number] 400mg Take 1 [facility] (ISENTRESS) 3-28 tablet by ity of 400 mg 00:00: mouth 2 [place] tablet 00 (two) Medical times Branch daily. raltegravir 2022-0 Yes [id number] 400mg Take 1 [facility] (ISENTRESS) 3-28 tablet by ity of 400 mg 00:00: mouth 2 [place] tablet 00 (two) Medical times Branch daily. raltegravir 2022-0 Yes [id number] 400mg Take 1 [facility] (ISENTRESS) 3-28 tablet by ity of 400 mg 00:00: mouth 2 [place] tablet 00 (two) Medical times Branch daily. raltegravir Yes [id number] 400mg Take 1 [facility] (ISENTRESS) 3-28 tablet by ity of 400 mg 00:00: mouth 2 [place] tablet 00 (two) Medical times Branch daily. raltegravir 2022- No [id number] 400mg Take 1 [facility] (ISENTRESS) 3-28 05-08 tablet by it y of 400 mg 00:00: 00:00 mouth 2 [place] tablet 00 :00 (two) Medical times Branch daily. LORazepam 1 2021- No [id number] 1mg Take 1 [facility] mg tablet 3-10 [...] times a tablet day. emtricitabi 2021- No [id number] Take one [facility] ne-tenofovi 1-20 09-12 po daily ity of r alafen 00:00: 00:00 [place] (DESCOVY) 00 :00 Medical tablet Branch metoprolol Yes [id number] Take 1 [facility] tartrate 7-26 tablet [facility] (Lopressor) 00:00: (100 mg 100 MG 00 total) by tablet mouth 2 (two) times a day AND 0.5 tablets (50 mg total) every night. metoprolol Yes [id number] Take 1 [facility] tartrate 7-26 [facility] [...] (affected area in groin) hydrALAZINE Yes 50mg Q.[id number] Take 50 mg [facility] (APRESOLINE 7-19 [id number] mouth [facility] ) 50 MG [...] (affected area in groin) hydrALAZINE Yes 50mg Q.[id number] Take 50 mg [facility] (APRESOLINE 7-19 [id number] [facility] mouth [facility] ) 50 MG [...] area in groin) hydrALAZINE 2021-0 Yes 50mg Q.[id number] Take 50 mg [facility] (APRESOLINE 7-19 [id number] [address] mouth 3 [address] ) 50 MG [...] (affected area in groin) hydrALAZINE Yes 50mg Q.[id number] Take 50 mg [facility] (APRESOLINE 7-19 [id number] mouth 3 [address] ) 50 MG [...] (affected area in groin) hydrALAZINE Yes 50mg Q.[id number] Take 50 mg [facility] (APRESOLINE 7-19 [id number] [address] mouth 3 [facility] ) 50 MG [...] area in groin) hydrALAZINE 0 Yes 50mg Q.[id number] Take 50 mg [facility] (APRESOLINE 7-19 [id number] [address] mouth 3 [facility] ) 50 MG [...] (affected area in groin) hydrALAZINE Yes 50mg Q.[id number] Take 50 mg [facility] (APRESOLINE 7-19 [id number] [address] mouth 3 [facility] ) 50 MG [...] (affected area in groin) hydrALAZINE Yes 50mg Q.[id number] Take 50 mg [facility] (APRESOLINE 7-19 [id number] [address] mouth 3 [address] ) 50 MG [...] area in groin) hydrALAZINE 0 Yes 50mg Q.[id number] Take 50 mg [facility] (APRESOLINE 7-19 [id number] [address] mouth 3 [facility] ) 50 MG [...] area in groin) hydrALAZINE 0 Yes 50mg Q.47700511 Take 50 mg [facility] (APRESOLINE 7-19 [id number] [address] mouth 3 [facility] ) 50 MG [...] (affected area in groin) hydrALAZINE Yes 50mg Q.[id number] Take 50 mg [facility] (APRESOLINE - [id number] by mouth 3 st ) 50 MG [...] area in groin) hydrALAZINE 0 Yes 50mg Q.96967172 Take 50 mg [facility] (APRESOLINE -19 [id number] [address] mouth [facility] [address] ) 50 MG [...] area in groin) hydrALAZINE 2020-0 Yes 50mg Q.[id number] Take 50 mg [facility] (APRESOLINE 7-19 [id number] [facility] mouth 3 [facility] ) 50 MG [...] (affected area in groin) hydrALAZINE Yes 50mg Q.76641368 Take 50 mg [facility] (APRESOLINE -19 [id number] [address] mouth 3 [address] ) 50 MG [...] area in groin) hydrALAZINE 0 Yes 50mg Q.[id number] Take 50 mg [facility] (APRESOLINE 7-19 [id number] mouth 3 [facility] ) 50 MG [...] area in groin) hydrALAZINE 2020-0 Yes 50mg Q.60222262 Take 50 mg [facility] (APRESOLINE 7-19 [id number] [address] mouth [facility] ) 50 MG [...] area in groin) hydrALAZINE 0 Yes 50mg Q.[id number] Take 50 mg [facility] (APRESOLINE 7-19 [id number] [address] mouth [facility] ) 50 MG [...] (affected area in groin) hydrALAZINE Yes 50mg Q.08075608 Take 50 mg [facility] (APRESOLINE 7-19 [id number] mouth 3 [address] ) 50 MG [...] area in groin) hydrALAZINE 2020-0 Yes 50mg Q.93830802 Take 50 mg [facility] (APRESOLINE -19 [id number] [address] mouth [facility] [address] ) 50 MG [...] area in groin) hydrALAZINE 0 Yes 50mg Q.[id number] Take 50 mg [facility] (APRESOLINE 7-19 [id number] [address] mouth 3 [address] ) 50 MG [...] (affected area in groin) hydrALAZINE Yes 50mg Q.52326435 Take 50 mg [facility] (APRESOLINE 7-19 [id number] [address] mouth 3 [address] ) 50 MG [...] area in groin) hydrALAZINE 0 Yes 50mg Q.28199927 Take 50 mg [facility] (APRESOLINE 7-19 [id number] mouth 3 [address] ) 50 MG [...] area in groin) hydrALAZINE 2021-0 Yes 50mg Q.52158831 Take 50 mg [facility] (APRESOLINE 7-19 [id number] mouth 3 [address] ) 50 MG [...] area in groin) hydrALAZINE 0 Yes 50mg Q.64627580 Take 50 mg [facility] (APRESOLINE 7-19 [id number] [address] mouth 3 [facility] ) 50 MG [...] area in groin) hydrALAZINE 0 Yes 50mg Q.52644555 Take 50 mg [facility] (APRESOLINE 7-19 [id number] [address] mouth 3 [facility] ) 50 MG [...] area in groin) hydrALAZINE 0 Yes 50mg Q.43208814 Take 50 mg [facility] (APRESOLINE 7-19 [id number] [address] mouth 3 [address] ) 50 MG [...] (affected area in groin) hydrALAZINE Yes 50mg Q.[id number] Take 50 mg [facility] (APRESOLINE 7-19 [id number] [address] mouth 3 [facility] ) 50 MG [...] (affected area in groin) hydrALAZINE Yes 50mg Q.45186293 Take 50 mg [facility] (APRESOLINE - [id number] by mouth 3 st ) 50 MG [...] area in groin) hydrALAZINE 0 Yes 50mg Q.93242389 Take 50 mg [facility] (APRESOLINE 7-19 [id number] mouth 3 [address] ) 50 MG [...] area in groin) hydrALAZINE 0 Yes 50mg Q.[id number] Take 50 mg [facility] (APRESOLINE 7-19 [id number] by mouth 3 [facility] ) 50 MG [...] (affected area in groin) hydrALAZINE Yes 50mg Q.[id number] Take 50 mg [facility] (APRESOLINE 7-19 [id number] mouth [facility] [address] ) 50 MG [...] (affected area in groin) hydrALAZINE Yes 50mg Q.[id number] Take 50 mg [facility] (APRESOLINE 7-19 [id number] [address] mouth 3 [address] ) 50 MG [...] area in groin) hydrALAZINE 2020-0 Yes 50mg Q.[id number] Take 50 mg [facility] (APRESOLINE 7-[id number] mouth [facility] [address] ) 50 MG [...] (affected area in groin) hydrALAZINE Yes 50mg Q.54943835 Take 50 mg [facility] (APRESOLINE 7-19 [id number] mouth 3 [address] ) 50 MG [...] area in groin) hydrALAZINE 0 Yes 50mg Q.96389255 Take 50 mg [facility] (APRESOLINE 7-[id number] mouth 3 [address] ) 50 MG [...] area in groin) hydrALAZINE 0 Yes 50mg Q.34321789 Take 50 mg [facility] (APRESOLINE 7-[id number] mouth 3 [address] ) 50 MG [...] (affected area in groin) hydrALAZINE Yes 50mg Q.[id number] Take 50 mg [facility] (APRESOLINE 7-[id number] mouth [address] ) 50 MG [...] (affected area in groin) hydrALAZINE Yes 50mg Q.47928105 Take 50 mg [facility] (APRESOLINE 7-19 [id number] mouth 3 [address] ) 50 MG [...] area in groin) hydrALAZINE 0 Yes 50mg Q.[id number] Take 50 mg [facility] (APRESOLINE 7-[id number] mouth [address] ) 50 MG [...] (affected area in groin) hydrALAZINE Yes 50mg Q.63740310 Take 50 mg [facility] (APRESOLINE 7-[id number] mouth [facility] [address] ) 50 MG [...] (affected area in groin) hydrALAZINE Yes 50mg Q.92098638 Take 50 mg [facility] (APRESOLINE 7-[id number] mouth [facility] ) 50 MG [...] area in groin) hydrALAZINE 0 Yes 50mg Q.86950918 Take 50 mg [facility] (APRESOLINE 7-[id number] [address] mouth [address] ) 50 MG [...] area in groin) hydrALAZINE 0 Yes 50mg Q.16808643 Take 50 mg [facility] (APRESOLINE 7-[id number] mouth [address] ) 50 MG [...] (affected area in groin) hydrALAZINE Yes 50mg Q.53373116 Take 50 mg [facility] (APRESOLINE 7-[id number] mouth [facility] ) 50 MG [...] Yes Q.5D Apply 1 [facility] (TEMOVATE) [address] 0.05 % 10:51: n [facility] ointment 25 topically l 2 (two) times a day. (affected area in groin) hydrALAZINE 0 Yes 50mg Q.66781836 Take 50 mg [facility] (APRESOLINE -19 [id number] [address] mouth [facility] ) 50 MG [...] area in groin) hydrALAZINE 0 Yes 50mg Q.56812468 Take 50 mg [facility] (APRESOLINE 7-19 [id number] [address] mouth [facility] ) 50 MG [...] (affected area in groin) hydrALAZINE Yes 50mg Q.[id number] Take 50 mg [facility] (APRESOLINE 7-[id number] mouth [facility] [address] ) 50 MG [...] (affected area in groin) hydrALAZINE Yes 50mg Q.[id number] Take 50 mg [facility] (APRESOLINE 7-[id number] mouth [facility] [address] ) 50 MG [...] (affected area in groin) hydrALAZINE Yes 50mg Q.60304614 Take 50 mg [facility] (APRESOLINE 7-[id number] mouth [facility] [address] ) 50 MG [...] area in groin) hydrALAZINE 0 Yes 50mg Q.[id number] Take 50 mg [facility] (APRESOLINE 7-[id number] [facility] [address] ) 50 MG [...] (affected area in groin) hydrALAZINE Yes 50mg Q.40074005 Take 50 mg [facility] (APRESOLINE 7-[id number] [facility] [address] ) 50 MG [...] area in groin) hydrALAZINE 0 Yes 50mg Q.[id number] Take 50 mg [facility] (APRESOLINE 7-[id number] mouth [facility] ) 50 MG [...] area in groin) hydrALAZINE 0 Yes 50mg Q.[id number] Take 50 mg [facility] (APRESOLINE 7-[id number] mouth [facility] ) 50 MG [...] (affected area in groin) hydrALAZINE Yes 50mg Q.[id number] Take 50 mg [facility] (APRESOLINE 7-[id number] mouth [facility] [address] ) 50 MG [...] [facility] tablet 25 l nystatin-tr 2021-0 Yes [id number] Apply to [facility] iamcinolone 7-06 area(s) 3 ity of cream 00:00: (three) [place] 00 times Medical daily. Branch nystatin-tr 2021-0 Yes [id number] Apply to [facility] iamcinolone 7-06 area(s) 3 ity of cream 00:00: (three) [place] 00 times Medical daily. Branch nystatin-tr 2021-0 Yes [id number] Apply to [facility] iamcinolone 7-06 area(s) 3 ity of cream 00:00: (three) [place] 00 times Medical daily. Branch nystatin-tr 2021-0 Yes [id number] Apply to [facility] iamcinolone 7-06 area(s) 3 ity of cream 00:00: (three) [place] 00 times Medical daily. Branch nystatin-tr 2021-0 Yes [id number] Apply to [facility] iamcinolone 7-06 area(s) 3 ity of cream 00:00: (three) [place] 00 times Medical daily. Branch nystatin-tr 2021-0 Yes [id number] Apply to [facility] iamcinolone 7-06 area(s) 3 ity of cream 00:00: (three) [place] 00 times Medical daily. Branch nystatin-tr 2021-0 Yes [id number] Apply to [facility] iamcinolone 7-06 area(s) 3 ity of cream 00:00: (three) [place] 00 times Medical daily. Branch nystatin-tr 2021-0 Yes [id number] Apply to [facility] iamcinolone 7-06 area(s) 3 ity of cream 00:00: (three) [place] 00 times Medical daily. Branch nystatin-tr 2021-0 Yes [id number] Apply to [facility] iamcinolone 7-06 area(s) 3 ity of cream 00:00: (three) [place] 00 times Medical daily. Branch nystatin-tr 2021-0 Yes [id number] Apply to [facility] iamcinolone 7-06 area(s) 3 ity of cream 00:00: (three) [place] 00 times Medical daily. Branch nystatin-tr 2021-0 Yes [id number] Apply to [facility] iamcinolone 7-06 area(s) 3 ity of cream 00:00: (three) [place] 00 times Medical daily. Branch nystatin-tr 2021-0 Yes [id number] Apply to [facility] iamcinolone 7-06 area(s) 3 ity of cream 00:00: (three) [place] 00 times Medical daily. Branch nystatin-tr 2021-0 Yes [id number] Apply to [facility] iamcinolone 7-06 area(s) 3 ity of cream 00:00: (three) [place] 00 times Medical daily. Branch nystatin-tr 2021-0 Yes [id number] Apply to [facility] iamcinolone 7-06 area(s) 3 ity of cream 00:00: (three) [place] 00 times Medical daily. Branch nystatin-tr 2021-0 Yes [id number] Apply to [facility] iamcinolone 7-06 area(s) 3 ity of cream 00:00: (three) [place] 00 times Medical daily. Branch nystatin-tr 2021-0 Yes [id number] Apply to [facility] iamcinolone 7-06 area(s) 3 ity of cream 00:00: (three) [place] 00 times Medical daily. Branch nystatin-tr 2021-0 Yes [id number] Apply to [facility] iamcinolone 7-06 area(s) 3 ity of cream 00:00: (three) [place] 00 times Medical daily. Branch nystatin-tr 2021-0 Yes [id number] Apply to [facility] iainolone 7-06 area(s) 3 ity of cream 00:00: (three) [place] 00 times Medical daily. Branch nystatin-tr 2020-0 Yes [id number] Apply to [facility] iainolone 7-06 area(s) 3 ity of cream 00:00: (three) [place] 00 times Medical daily. Branch nystatin-tr 2020-0 Yes [id number] Apply to [facility] iamcinolone 7-06 area(s) 3 ity of cream 00:00: (three) [place] 00 times Medical daily. Branch nystatin-tr 2020-0 Yes [id number] Apply to [facility] iainolone 7-06 area(s) 3 ity of cream 00:00: (three) [place] 00 times Medical daily. Branch nystatin-tr 2020-0 Yes [id number] Apply to [facility] iainolone 7-06 area(s) 3 ity of cream 00:00: (three) [place] 00 times Medical daily. Branch budesonide- 2020-0 2020- No 1{puff} QD Inhale 1 [facility] formoteroL 6-25 06-[address] (SYMBICORT) 14:37: 00:00 morning. H ospita 160-4.5 02 :00 l mcg/actuati on inhaler hydrALAZINE Yes [id number] 50mg Q.82355898 Take 1 [facility] (Apresoline 6-11 [id number] tablet (50 Health ) 50 MG 00:00: 3D mg total) tablet 00 by mouth 3 (three) times a day. hydrALAZINE Yes [id number] 50mg Q.33135023 Take 1 [facility] (Apresoline 6-11 [id number] tablet (50 Health ) 50 MG 00:00: [...] % 00:00: ointment 00 nystatin 2020- No [id number] Q.25D Take 5 mL [facility] (MYCOSTATIN 10-06 [...] ia 4-10 (Same as: l 14:00: Norvasc) [place] 00 emtricitabi No Notes: Caesar lisa ne 200 MG / 4-10 (Same as: l tenofovir 14:00: Descovy) Herm ariel alafenamide 00 Non-formul 25 MG Oral nancy Tablet [Descovy] pantoprazol No Notes: [place] lisa e 4-10 Tablet l 14:00: should not [place] be chewed or crushed. (Same as: Protonix) [...] ia 4-10 (Same as: l 14:00: Zoloft) [place] 00 pantoprazol No Notes: Caesar lisa e [...] ia 4-10 (Same as: l 14:00: Zoloft) [place] pantoprazol No Notes: [place] lisa e 4-10 [...] e 4-10 Tablet l 14:00: should not [place] 00 be chewed or crushed. (Same as: Protonix) Amiodarone No Notes: Memor ia 4-10 (Same as: l 14:00: Cordarone) [place] Amlodipine No Notes: Memor ia 4-10 (Same as: l 14:00: Norvasc) [place] emtricitabi No Notes: [place] lisa ne 200 MG / 4-10 (Same as: l tenofovir 14:00: Descovy) Herm ariel alafenamide 00 Non-formul 25 MG Oral nancy Tablet [Descovy] Sertraline No Notes: Memor ia 4-10 (Same as: l 14:00: Zoloft) [place] pantoprazol No Notes: [place] lisa e 4-10 [...] M emoria 4-10 interfere l 02:00: w/enteral [place] 00 feeds - Take 1 hr before or 2 hr after antacids, dairy pdt, meals & minerals - On empty stomach. For patients unable to swallow tablet, dissolve in 10mL - 30mL of water or juice and stir before giving. (Same As: Carafate) Saline No Notes: [facility] Flush 0.9% 4-10 (Same as: l 02:00: BD [place] Posiflush) Eliquis No Notes: [facility]oria 4-10 Same [...] 0.9% 4-10 (Same as: l 02:00: BD [place] Posiflush) Eliquis No Notes: [facility]oria 4-10 Same as: l 02:00: Eliquis [place] Hydralazine No Notes: Caesar lisa Hydrochlori 4-10 [...] 0.9% 4-10 (Same as: l 02:00: BD [place] Posiflush) Eliquis No Notes: [facility]oria 4-10 Same as: l 02:00: Eliquis [place] 00 Hydralazine No Notes: Caesar lisa Hydrochlori 4-10 (Same as: l de 50 MG 02:00: Apresoline Her mitchell Oral Tablet 00 ) May interfere w/enteral feedings Take With Food Sucralfate No Notes: May M emoria 4-10 interfere l 02:00: w/enteral [place] 00 feeds - Take 1 hr before or 2 hr after antacids, dairy pdt, meals & minerals - On empty stomach. For patients unable to swallow tablet, dissolve in 10mL - 30mL of water or juice and stir before giving. (Same As: Carafate) Saline No Notes: [facility] Flush 0.9% 4-10 (Same as: l 02:00: BD [place] Posiflush) Eliquis No Notes: [facility] 4-10 Same as: l 02:00: Eliquis [place] 00 Hydralazine No Notes: Caesar lisa Hydrochlori 4-10 (Same as: l de 50 MG 02:00: Apresoline [facility] [place] Oral Tablet 00 ) May interfere w/enteral feedings Take With Food Sucralfate No Notes: May M emoria 4-10 interfere l 02:00: w/enteral [place] 00 feeds - Take 1 hr before [...] 0.9% 4-10 (Same as: l 02:00: BD [place] Posiflush) Eliquis No Notes: Memoria 4-10 Same as: l 02:00: Eliquis [place] Hydralazine No Notes: Caesar lisa Hydrochlori 4-10 [...] not exceed l #3 00:12: 4gm/day of [place] acetaminop hen. (Same as: Tylenol with Codeine # 3) acetaminoph No Notes: Do M emoria en-codeine 4-10 not exceed l #3 00:12: 4gm/day of [place] acetaminop hen. (Same as: Tylenol with Codeine [...] l Tablet 22:00: Route: PO, [facility] nn [facility] Drug form: TAB, BID, Dosing Weight 97.273, [...] tartrate - tab, l 22:00: Route: PO, [place] 00 Drug form: TAB, BID, Dosing Weight [...] oria 4-09 tab, l 22:00: Route: PO, [place] 00 Drug form: TAB, BID, Dosing Weight [...] oria 4- tab, l 22:00: Route: PO, [place] Drug form: TAB, BID, Dosing Weight 97.273, [...] oria 4-09 tab, l 22:00: Route: PO, [place] 00 Drug form: TAB, BID, Dosing Weight [...] Notes: Memoria 4-09 (Same l 17:07: as:MORPhin [place] 00 e Sulfate) Morphine No Notes: Memoria 4-09 (Same l 17:07: as:MORPhin [place] 00 e Sulfate) Morphine No Notes: Memoria 4-09 (Same l 17:07: as:MORPhin [place] 00 e Sulfate) Morphine No Notes: [facility]oria 4-09 (Same l 17:07: as:MORPhin [place] 00 e Sulfate) Morphine No Notes: [facility]oria 4-09 (Same l 17:07: as:MORPhin [place] 00 e Sulfate) buPROPion 2020-0 No 150 [...] 08-29 Drug form: l 15:40: INJ, ONCE, [place] 00 Stop date: 08/29/20 10:40:00 CDT neostigmine [...] tab, PO, l oral 15:27: Daily, # [place] enteric 00 30 tab, 0 coated Refill(s), tablet Pharmacy: [facility] 149, 162.56, cm, 08/29/20 5:30:00 CDT, Height, 97.273, kg, 08/29/20 5:30:00 CDT, Weight pantoprazol 2020-0 Yes 40 mg = 1 M emoria e 40 mg 4-09 tab, PO, l oral 15:27: Daily, # [place] enteric 00 30 tab, 0 coated Refill(s), tablet Pharmacy: [facility] 149, 162.56, cm, 08/29/20 5:30:00 CDT, Height, 97.273, kg, 08/29/20 5:30:00 CDT, Weight pantoprazol 2021-0 Yes 40 mg = 1 M emoria e 40 mg 4-09 tab, PO, l oral 15:27: Daily, # [place] enteric 00 30 tab, 0 coated Refill(s), tablet Pharmacy: [facility] 149, 162.56, cm, 08/29/20 5:30:00 CDT, Height, 97.273, kg, 08/29/20 5:30:00 CDT, Weight pantoprazol 2021-0 Yes 40 mg = 1 M emoria e 40 mg 4-09 tab, PO, l oral 15:27: Daily, # [place] enteric 00 30 tab, 0 coated Refill(s), tablet Pharmacy: [facility] 149, 162.56, cm, 08/29/20 5:30:00 CDT, Height, 97.273, kg, 08/29/20 5:30:00 CDT, Weight pantoprazol 2021-0 Yes 40 mg = 1 M emoria e 40 mg 4-09 tab, PO, l oral 15:27: Daily, # [place] enteric 00 30 tab, 0 coated Refill(s), tablet Pharmacy: [facility] 149, 162.56, cm, 08/29/20 5:30:00 CDT, Height, 97.273, kg, 08/29/20 5:30:00 CDT, Weight pantoprazol 2021-0 Yes 40 mg = 1 M emoria e 40 mg 4-09 tab, PO, l oral 15:27: Daily, # [place] enteric 00 30 tab, 0 coated Refill(s), tablet Pharmacy: [facility] 149, 162.56, cm, 08/29/20 5:30:00 CDT, Height, 97.273, kg, 08/29/20 5:30:00 CDT, Weight pantoprazol 2021-0 Yes 40 mg = 1 M emoria e 40 mg 4-09 tab, PO, l oral 15:27: Daily, # [place] enteric 00 30 tab, 0 coated Refill(s), tablet Pharmacy: [facility] 149, 162.56, cm, [...] nn 00 tab, 0 Refill(s), Pharmacy: [facility] 149, 162.56, cm, [...] 00 tab, 0 Refill(s), Pharmacy: [place] [id number], 162.56, cm, 08/29/20 5:30:00 CDT, Height, 97.273, [...] nn 00 tab, 0 Refill(s), Pharmacy: [facility] 149, 162.56, cm, [...] nn 00 tab, 0 Refill(s), Pharmacy: [facility] 149, 162.56, cm, [...] nn 00 tab, 0 Refill(s), Pharmacy: [facility] 149, 162.56, cm, 08/29/20 5:30:00 CDT, Height, 97.273, kg, 08/29/20 5:30:00 CDT, Weight pantoprazol 2020-0 No 40 mg = 1 M emoria e 40 mg 4-09 tab, PO, l oral 15:26: Daily, # [place] enteric 00 30 tab, 0 coated Refill(s) tablet sucralfate 2020-0 Yes 1 gm = 1 Mem oria 1 g oral 4-09 tab, PO, l tablet 15:26: Q12H, # 28 [place]ylar nn 00 tab, 0 Refill(s), Pharmacy: [facility] 149, 162.56, cm, 08/29/20 5:30:00 CDT, Height, 97.273, kg, 08/29/20 5:30:00 CDT, Weight pantoprazol 1-0 No 40 mg = 1 M emoria e 40 mg 4-09 tab, PO, l oral 15:26: Daily, # [place] enteric 00 30 tab, 0 coated Refill(s) tablet sucralfate Yes 1 gm = 1 Mem oria 1 g oral 4-09 tab, PO, l tablet 15:26: Q12H, # 28 Skylar nn 00 tab, 0 Refill(s), Pharmacy: [facility] 149, 162.56, cm, 08/29/20 5:30:00 CDT, Height, 97.273, kg, 08/29/20 5:30:00 CDT, Weight Saline No Notes: Memoria Flush 0.9% 4-09 (Same as: l 15:25: BD Marty 00 Posiflush) Lorazepam No Notes: Memori a 4-09 (Same as: l 15:25: Ativan) [facility] Saline No Notes: Memoria Flush 0.9% 4-09 (Same as: l 15:25: BD [facility] 00 Posiflush) Lorazepam No Notes: Memori a 4-09 (Same as: l 15:25: Ativan) [facility] Saline No Notes: Memoria Flush 0.9% 4-09 (Same as: l 15:25: BD [facility] 00 Posiflush) Saline No Notes: [facility] Flush 0.9% 4-09 (Same as: l 15:25: BD [facility] [place] 00 Posiflush) Lorazepam No Notes: Memori a 4-09 (Same as: l 15:25: Ativan) Lorazepam No Notes: [facility] a 4-09 (Same as: l 15:25: Ativan) [facility] Saline No Notes: [facility] Flush 0.9% 4-09 (Same as: l 15:25: BD [facility] [place] 00 Posiflush) Lorazepam No Notes: [facility] a 4-09 (Same as: l 15:25: Ativan) [facility] [place] Saline No Notes: [facility] Flush 0.9% 4-09 (Same as: l 15:25: BD [place] 00 Posiflush) Lorazepam No Notes: [facility] a 4-09 (Same as: l 15:25: Ativan) [facility] [place] Saline No Notes: [facility] Fl[facility] 0.9% 08-29 [...] 08-29 Drug form: l 14:18: INJ, ONCE, [facility] [place] 00 Stop date: 08/29/20 9:18:00 CDT heparin 202-0 No Route: IV, Caesar lisa (ANES) 08-29 Drug form: l 14:18: INJ, ONCE, Stop date: 08/29/20 9:18:00 CDT heparin 2021-0 No Route: IV, [facility] l[facility] (ANES) 08-29 Drug form: l 14:18: INJ, ONCE, Stop date: 08/29/20 9:18:00 CDT heparin 2020-0 No Route: IV, [facility] l[facility] (ANES) 08-29 Drug form: l 14:18: INJ, ONCE, [facility] 00 Stop date: 08/29/20 9:18:00 CDT heparin [...] 08-29 Route: PO, l 14:01: Drug form: [facility] 00 TAB, ONCE, Dosing Weight 97.273, kg, [...] oria ne 08-29 Route: l 14:01: IVP, [facility] [place] 00 Q5Min, Dosing Weight 97.273, kg, PRN Pain Score 7-10, Start date: 08/29/20 9:01:00 CDT, Duration: 4 doses or times, Stop date: Limited # of times Flumazenil 2020-0 No 0.2 mg, Caesar lisa 08-29 Route: l 14:01: IVP, PRN, [place] Dosing Weight 97.273, kg, PRN Benzodiaze pine [...] Memori a 08-29 Route: l 14:01: IVP, [place] 00 Q5Min, Dosing Weight 97.273, kg, PRN [...] lisa 08-29 Route: l 14:01: IVP, PRN, [place] 00 Dosing Weight 97.273, kg, PRN Benzodiaze [...] Memori a 08-29 Route: l 14:01: IVP, [place] 00 Q5Min, Dosing Weight 97.273, kg, PRN Elevated BP, Start date: 08/29/20 9:01:00 CDT, Duration: 5 doses or times, Stop date: Limited # of times Acetaminoph 1-0 No 1,000 mg, M emoria en 08-29 Route: PO, l 14:01: Drug form: [facility] 00 TAB, ONCE, Dosing Weight 97.273, kg, [...] oria ne 08-29 Route: l 14:01: IVP, [place] 00 Q5Min, Dosing Weight 97.273, kg, PRN [...] Memori a 08-29 Route: l 14:01: IVP, [place] [facility] 00 Q2MIN, Dosing Weight 97.273, kg, PRN [...] Memori a 08-29 Route: l 14:01: IVP, [facility] 00 Q5Min, Dosing Weight 97.273, kg, PRN Elevated BP, Start date: 08/29/20 9:01:00 CDT, Duration: 5 doses or times, Stop date: Limited # of times Acetaminoph 1-0 No 1,000 mg, M emoria en 08-29 Route: PO, l 14:01: Drug form: [facility] 00 TAB, ONCE, Dosing Weight 97.273, kg, [...] oria ne 08-29 Route: l 14:01: IVP, [facility] 00 Q5Min, Dosing Weight 97.273, kg, PRN Pain Score 7-10, Start date: 08/29/20 9:01:00 CDT, Duration: 4 doses or times, Stop date: Limited # of times Labetalol 2021-0 No 10 mg, [facility] a 08-29 Route: l 14:01: IVP, [place] [facility] 00 Q5Min, Dosing Weight 97.273, kg, PRN Elevated BP, Start date: 08/29/20 9:01:00 CDT, Duration: 5 doses or times, Stop date: Limited # of times Acetaminoph 1-0 No 1,000 mg, M emoria en 08-29 Route: PO, l 14:01: Drug form: [facility] 00 TAB, ONCE, Dosing Weight 97.273, kg, [...] lisa 08-29 Route: l 14:01: IVP, PRN, [facility] 00 Dosing Weight 97.273, kg, PRN Benzodiaze pine Reversal, Initial dose, Start date: 08/29/20 9:01:00 CDT, Duration: 30 day, Stop date: 09/28/20 9:00:00 CDT Naloxone 2021-0 No 0.4 mg, [facility] a 08-29 Route: l 14:01: IVP, [place] 00 Q2MIN, Dosing Weight 97.273, kg, PRN [...] ia 08-29 Route: l 14:01: IVP, ONCE, [place] [facility] 00 Dosing Weight 97.273, kg, PRN Nausea & Vomiting, Start date: 08/29/20 9:01:00 CDT Naloxone 2021-0 No 0.4 mg, [facility] a 08-29 Route: l 14:01: IVP, [facility] 00 Q2MIN, Dosing Weight 97.273, kg, PRN [...] Memori a 08-29 Route: l 14:01: IVP, [facility] 00 Q5Min, Dosing Weight 97.273, kg, PRN Elevated BP, Start date: 08/29/20 9:01:00 CDT, Duration: 5 doses or times, Stop date: Limited # of times Acetaminoph 2021-0 No 1,000 mg, M emoria en 08-29 Route: PO, l 14:01: Drug form: [facility] 00 TAB, ONCE, Dosing Weight 97.273, kg, [...] lisa 08-29 Route: l 14:01: IVP, PRN, [facility] 00 Dosing Weight 97.273, kg, PRN Benzodiaze pine Reversal, Initial dose, Start date: 08/29/20 9:01:00 CDT, Duration: 30 day, Stop date: 09/28/20 9:00:00 CDT Naloxone 1-0 No 0.4 mg, [facility] a 08-29 Route: l 14:01: IVP, [facility] 00 Q2MIN, Dosing Weight 97.273, kg, PRN [...] 08-29 Route: PO, l 14:01: Drug form: [place] [facility] 00 TAB, ONCE, Dosing Weight 97.273, kg, [...] lisa 08-29 Route: l 14:01: IVP, PRN, [facility] 00 Dosing Weight 97.273, kg, PRN Benzodiaze [...] Drug form: l 10 13:15: INJ, Start [facility] microgram date: 08/29/20 8:15:00 CDT, Stop date: 08/29/20 9:15:00 CDT norepinephr 2021-0 No Route: IV, [facility] ine (ANES) 08-29 Drug form: l 10 13:15: INJ, Start [facility] microgram 00 date: 08/29/20 8:15:00 CDT, Stop date: 08/29/20 9:15:00 CDT norepinephr 2021-0 No Route: IV, [facility] in[facility] (ANES) 08-29 Drug form: l 10 13:15: INJ, Start [facility] microgram 00 date: 08/29/20 8:15:00 CDT, Stop [...] 4-09 Total l 0.9% IV 12:30: Volume: [facility] (ANES) 1000 00 1,000, mL Start date: [...] PO, l Hydrochlori 11:42: Q24H, # 30 [facility] de 150 MG 00 tab, 0 Extended Refill(s) Release Tablet 24 HR Yes 150 mg = 1 [facility] a Bupropion 4-09 tab, PO, l Hydrochlori 11:42: Q24H, # 30 [facility] de 150 MG 00 tab, 0 Extended Refill(s) Release Tablet 24 HR Yes 150 mg = 1 [facility] Bupropion 4-09 tab, PO, l Hydrochlori 11:42: Q24H, # 30 [facility] de 150 MG 00 tab, 0 Extended Refill(s) Release Tablet 24 HR Yes 150 mg = 1 [facility] Bupropion 4-09 tab, PO, l Hydrochlori 11:42: Q24H, # 30 [facility] de 150 MG 00 tab, 0 Extended Refill(s) Release Tablet 24 HR Yes 150 mg = 1 [facility] Bupropion 4-09 tab, PO, l Hydrochlori 11:42: Q24H, # 30 [facility] de 150 MG 00 tab, 0 Extended Refill(s) Release Tablet 24 HR 2020-0 Yes 150 mg = 1 [facility] a Bupropion - tab, PO, l Hydrochlori 11:42: Q24H, # 30 [facility] de 150 MG 00 tab, 0 Extended Refill(s) Release Tablet apixaban 2020-0 Yes 5 mg, PO, Me moria MG Oral - Q12H, tab, l Tablet 11:41: 0 [facility] [Eliquis] 00 Refill(s), For Atrial Fibrilatio n apixaban 5 2020-0 Yes 5 mg, PO, Me moria MG Oral - Q12H, tab, l Tablet 11:41: 0 [facility] [Eliquis] 00 Refill(s), For Atrial Fibrilatio n [...] - Q12H, tab, l Tablet 11:41: 0 [facility] [Eliquis] 00 Refill(s), For Atrial Fibrilatio n apixaban 5 2020-0 Yes 5 mg, PO, Me moria MG Oral 4- Q12H, tab, l Tablet 11:41: 0 [facility] [Eliquis] 00 Refill(s), For Atrial Fibrilatio n AMIODarone 2020-0 Yes 200 mg = 1 M emoria 200 mg oral -09 tab, PO, l tablet 11:38: Daily, # [facility] 00 90 tab, 3 Refill(s) AMIODarone 1-0 Yes 200 mg = 1 M emoria 200 mg oral 4-09 tab, PO, l tablet 11:38: Daily, # [facility] 00 90 tab, 3 Refill(s) AMIODarone 2020-0 Yes 200 mg = 1 M em[facility] 200 mg oral 4-09 tab, PO, l tablet 11:38: Daily, # [facility] 00 90 tab, 3 Refill(s) AMIODarone 2020-0 [...] tab, PO, l tablet 11:38: Daily, # [facility] 00 90 tab, 3 Refill(s) AMIODarone 2020-0 Yes 200 mg = 1 M em[facility] 200 mg oral 4-09 tab, PO, l tablet 11:38: Daily, # [facility] 00 90 tab, 3 Refill(s) normal 0 [...] Eliquis 5 2021-0 Yes [facility] mg tablet [facility] l predniSONE 2020-0 [...] [place] [facility] inhaler [facility] albuterol 2019-0 [...] Immunization Date Status Comments [facility] e Immunization Name Name SARS-COV-2 COVID-19 2022-03-05 [...] [place] [facility] PFIZER COVID-19 2020-07-23 Completed [facility] VACCINATION 00:00:00 [facility] PFIZER COVID-19 2020-07-23 Completed [facility] MRNA VACCINATION 00:00:00 [facility] PFIZER COVID-19 2020-07-23 Completed [facility] MRNA VACCINATION 00:00:00 [facility] PFIZER COVID-19 2020-07-23 Completed [facility] MRNA VACCINATION 00:00:00 [facility] PFIZER COVID-19 2020-07-23 Completed [facility] MRNA VACCINATION 00:00:00 [facility] PFIZER COVID-19 2020-07-23 Completed [facility] MRNA VACCINATION 00:00:00 [facility] PFIZER COVID-19 2020-07-23 Completed [facility] M[facility] VACCINATION 00:00:00 [facility] PEG COVID-19 2020-07-23 Completed [facility] MRNA VACCINATION 00:00:00 [facility] PFIZER COVID-19 2020-07-23 Completed [facility] MRNA VACCINATION 00:00:00 [facility] PEG COVID-19 2020-07-23 Completed [facility] MRNA VACCINATION 00:00:00 [facility] PEG COVID-19 2020-07-23 Completed [facility] MRNA VACCINATION 00:00:00 [facility] PEG COVID-19 2020-07-23 Completed [facility] MRNA VACCINATION 00:00:00 [facility] PEG COVID-19 2020-07-23 Completed [facility] MRNA VACCINATION 00:00:00 [facility] PEG COVID-19 2020-07-23 Completed [facility] MRNA VACCINATION 00:00:00 [facility] PEG COVID-19 2020-07-23 Completed [facility] MRNA VACCINATION 00:00:00 [facility] PEG COVID-19 2020-07-23 Completed [facility] MRNA VACCINATION 00:00:00 [facility] PEG COVID-19 2020-07-23 Completed [facility] MRNA VACCINATION 00:00:00 [facility] PEG COVID-19 2020-07-23 Completed [facility] MRNA VACCINATION 00:00:00 [facility] PEG COVID-19 2020-07-23 Completed [facility] MRNA VACCINATION 00:00:00 [facility] PEG COVID-19 2020-07-23 Completed [facility] MRNA VACCINATION 00:00:00 [facility] PEG COVID-19 2020-07-23 Completed [facility] MRNA VACCINATION 00:00:00 [facility] PEG COVID-19 2020-07-23 Completed [facility] MRNA VACCINATION 00:00:00 [facility] PEG COVID-19 2020-07-23 Completed [facility] MRNA VACCINATION 00:00:00 [facility] PEG COVID-19 2020-07-23 Completed [facility] MRNA VACCINATION 00:00:00 [facility] PFIZER COVID-19 2020-07-23 Completed [facility] MRNA VACCINATION 00:00:00 [facility] PFIZER COVID-19 2020-07-23 Completed [facility] MRNA VACCINATION 00:00:00 [facility] PFIZER COVID-19 2020-07-23 Completed [facility] MRNA VACCINATION 00:00:00 [facility] PEG COVID-19 2020-07-23 Completed [facility] MRNA VACCINATION 00:00:00 [facility] PFIZER COVID-19 2020-07-23 Completed [facility] MRNA VACCINATION 00:00:00 [facility] PFIZER COVID-19 2020-07-23 Completed [facility] MRNA VACCINATION 00:00:00 [facility] PFIZER COVID-19 2020-07-23 Completed [facility] MRNA VACCINATION 00:00:00 [facility] PFIZER COVID-19 2020-07-23 Completed [facility] MRNA VACCINATION 00:00:00 [facility] PFIZER COVID-19 2020-07-23 Completed [facility] MRNA VACCINATION 00:00:00 [facility] PFIZER COVID-19 2020-07-23 Completed [facility] MRNA VACCINATION 00:00:00 [facility] PFIZER COVID-19 2020-07-23 Completed [facility] MRNA VACCINATION 00:00:00 [facility] PFIZER COVID-19 2020-07-23 Completed [facility] MRNA VACCINATION 00:00:00 [facility] PFIZER COVID-19 2020-07-23 Completed [facility] MRNA VACCINATION 00:00:00 [facility] PEG COVID-19 2020-07-23 Completed [facility] M[facility] VACCINATION 00:00:00 [facility] PEG COVID-19 2020-07-23 Completed [facility] MRNA VACCINATION 00:00:00 [facility] PEG COVID-19 2020-07-23 Completed [facility] MRNA VACCINATION 00:00:00 [facility] PFIZER COVID-19 2020-07-23 Completed [facility] MRNA VACCINATION 00:00:00 [facility] PFIZER COVID-19 2020-07-23 Completed [facility] MRNA VACCINATION 00:00:00 [facility] PFIZER COVID-19 2020-07-23 Completed [facility] MRNA VACCINATION 00:00:00 [facility] PEG COVID-19 2020-07-23 Completed [facility] MRNA VACCINATION 00:00:00 [facility] PFIZER COVID-19 2020-07-23 Completed [facility] MRNA VACCINATION 00:00:00 [facility] PFIZER COVID-19 2020-07-23 Completed [facility] MRNA VACCINATION 00:00:00 [facility] PFIZER COVID-19 2020-07-23 Completed [facility] MRNA VACCINATION 00:00:00 [facility] PFIZER COVID-19 2020-07-23 Completed [facility] MRNA VACCINATION 00:00:00 [facility] PFIZER COVID-19 2020-07-23 Completed [facility] MRNA VACCINATION 00:00:00 [facility] PFIZER COVID-19 2020-07-23 Completed [facility] MRNA VACCINATION 00:00:00 [facility] PFIZER COVID-19 2020-07-23 Completed [facility] MRNA VACCINATION 00:00:00 [facility] PFIZER COVID-19 2020-07-23 Completed [facility]ACC[facility] 00:00:00 [facility] PFIZER COVID-19 2020-07-23 Completed [facility] VACC[facility] 00:00:00 [facility] SARS-COV-2 COVID-19 2020-07-23 Completed [facility] PFIZER VACCINE 00:00:00 [facility] SARS-COV-2 COVID-19 2020-07-23 Completed [facility] of PFIZER VACCINE 00:00:00 [facility] SARS-COV-2 COVID-19 2020-07-23 Completed [facility] PFIZER VACCINE 00:00:00 [facility] SARS-COV-2 COVID-19 2020-07-23 Completed [facility] PFIZER VACCINE 00:00:00 [facility] SARS-COV-2 COVID-19 2020-07-23 Completed [facility] PFIZER VACCINE 00:00:00 [facility] SARS-COV-2 COVID-19 2020-07-23 Completed [facility] of PFIZER VACCINE 00:00:00 [facility] SARS-COV-2 COVID-19 2020-07-23 Completed [facility] of PFIZER VACCINE 00:00:00 [facility] SARS-COV-2 COVID-19 2020-07-23 Completed [facility] of PFIZER VACCINE 00:00:00 [facility] SARS-COV-2 COVID-19 2020-07-23 Completed [facility] of PFIZER VACCINE 00:00:00 [facility] SARS-COV-2 COVID-19 2020-07-23 Completed [facility] of PFIZER VACCINE 00:00:00 [facility] SARS-COV-2 COVID-19 2020-07-23 Completed [facility] of PFIZER VACCINE 00:00:00 [facility] SARS-COV-2 COVID-19 2020-07-23 Completed [facility] of PFIZER VACCINE 00:00:00 [facility] SARS-COV-2 COVID-19 2020-07-23 Completed [facility] of PFIZER VACCINE 00:00:00 [facility] SARS-COV-2 COVID-19 2020-07-23 Completed [facility] of PFIZER VACCINE 00:00:00 [facility] SARS-COV-2 COVID-19 2020-07-23 Completed [facility] of PFIZER VACCINE 00:00:00 [facility] SARS-COV-2 COVID-19 2020-07-23 Completed [facility] of PFIZER VACCINE 00:00:00 [facility] SARS-COV-2 COVID-19 2020-07-23 Completed [facility] of PFIZER VACCINE 00:00:00 [facility] SARS-COV-2 COVID-19 2020-07-23 Completed [facility] of PFIZER VACCINE 00:00:00 [facility] PFIZER COVID-19 2020-07-23 Completed [facility] MRNA VACCINATION 00:00:00 [facility] PFIZER COVID-19 2020-07-02 Completed [facility] MRNA VACCINATION 00:00:00 [facility] PFIZER COVID-19 2020-07-02 Completed [facility] MRNA VACCINATION 00:00:00 [facility] PFIZER COVID-19 2020-07-02 Completed [facility] MRNA VACCINATION 00:00:00 [facility] PFIZER COVID-19 2020-07-02 Completed [facility] MRNA VACCINATION 00:00:00 [facility] PFIZER COVID-19 2020-07-02 Completed [facility] MRNA VACCINATION 00:00:00 [facility] PFIZER COVID-19 2020-07-02 Completed [facility] MRNA VACCINATION 00:00:00 [facility] PFIZER COVID-19 2020-07-02 Completed [facility] MRNA VACCINATION 00:00:00 [facility] PFIZER COVID-19 2020-07-02 Completed [facility] MRNA VACCINATION 00:00:00 [facility] PFIZER COVID-19 2020-07-02 Completed [facility] MRNA VACCINATION 00:00:00 [facility] PFIZER COVID-19 2020-07-02 Completed [facility] MRNA VACCINATION 00:00:00 [facility] PFIZER COVID-19 2020-07-02 Completed [facility] MRNA VACCINATION 00:00:00 [facility] PFIZER COVID-19 2020-07-02 Completed [facility] MRNA VACCINATION 00:00:00 [facility] PFIZER COVID-19 2020-07-02 Completed [facility] MRNA VACCINATION 00:00:00 [facility] PFIZER COVID-19 2020-07-02 Completed [facility] MRNA VACCINATION 00:00:00 [facility] PFIZER COVID-19 2020-07-02 Completed [facility] MRNA VACCINATION 00:00:00 [facility] PFIZER COVID-19 2020-07-02 Completed [facility] MRNA VACCINATION 00:00:00 [facility] PFIZER COVID-19 2020-07-02 Completed [facility] MRNA VACCINATION 00:00:00 [facility] PFIZER COVID-19 2020-07-02 Completed [facility] MRNA VACCINATION 00:00:00 [facility] PFIZER COVID-19 2020-07-02 Completed [facility] MRNA VACCINATION 00:00:00 [facility] PFIZER COVID-19 2020-07-02 Completed [facility] MRNA VACCINATION 00:00:00 [facility] PFIZER COVID-19 2020-07-02 Completed [facility] MRNA VACCINATION 00:00:00 [facility] PFIZER COVID-19 2020-07-02 Completed [facility] MRNA VACCINATION 00:00:00 [facility] PFIZER COVID-19 2020-07-02 Completed [facility] MRNA VACCINATION 00:00:00 [facility] PFIZER COVID-19 2020-07-02 Completed [facility] MRNA VACCINATION 00:00:00 [facility] PFIZER COVID-19 2020-07-02 Completed [facility] MRNA VACCINATION 00:00:00 [facility] PFIZER COVID-19 2020-07-02 Completed [facility] MRNA VACCINATION 00:00:00 [facility] PFIZER COVID-19 2020-07-02 Completed [facility] MRNA VACCINATION 00:00:00 [facility] PFIZER COVID-19 2020-07-02 Completed [facility] MRNA VACCINATION 00:00:00 [facility] PFIZER COVID-19 2020-07-02 Completed [facility] MRNA VACCINATION 00:00:00 [facility] PFIZER COVID-19 2020-07-02 Completed [facility] MRNA VACCINATION 00:00:00 [facility] PFIZER COVID-19 2020-07-02 Completed [facility] MRNA VACCINATION 00:00:00 [facility] PFIZER COVID-19 2020-07-02 Completed [facility] MRNA VACCINATION 00:00:00 [facility] PFIZER COVID-19 2020-07-02 Completed [facility] MRNA VACCINATION 00:00:00 [facility] PFIZER COVID-19 2020-07-02 Completed [facility] MRNA VACCINATION 00:00:00 [facility] PFIZER COVID-19 2020-07-02 Completed [facility] MRNA VACCINATION 00:00:00 [facility] PFIZER COVID-19 2020-07-02 Completed [facility] MRNA VACCINATION 00:00:00 [facility] PFIZER COVID-19 2020-07-02 Completed [facility] MRNA VACCINATION 00:00:00 [facility] PFIZER COVID-19 2020-07-02 Completed [facility] MRNA VACCINATION 00:00:00 [facility] PFIZER COVID-19 2020-07-02 Completed [facility] MRNA VACCINATION 00:00:00 [facility] PFIZER COVID-19 2020-07-02 Completed [facility] MRNA VACCINATION 00:00:00 [facility] PFIZER COVID-19 2020-07-02 Completed [facility] MRNA VACCINATION 00:00:00 [facility] PFIZER COVID-19 2020-07-02 Completed [facility] MRNA VACCINATION 00:00:00 [facility] PFIZER COVID-19 2020-07-02 Completed [facility] MRNA VACCINATION 00:00:00 [facility] PFIZER COVID-19 2020-07-02 Completed [facility] MRNA VACCINATION 00:00:00 [facility] PFIZER COVID-19 2020-07-02 Completed [facility] MRNA VACCINATION 00:00:00 [facility] PFIZER COVID-19 2020-07-02 Completed [facility] MRNA VACCINATION 00:00:00 [facility] PFIZER COVID-19 2020-07-02 Completed [facility] MRNA VACCINATION 00:00:00 [facility] PFIZER COVID-19 2020-07-02 Completed [facility] MRNA VACCINATION 00:00:00 [facility] PFIZER COVID-19 2020-07-02 Completed [facility] MRNA VACCINATION 00:00:00 [facility] PFIZER COVID-19 2020-07-02 Completed [facility] MRNA VACCINATION 00:00:00 [facility] PFIZER COVID-19 2020-07-02 Completed [facility] MRNA VACCINATION 00:00:00 [facility] PFIZER COVID-19 2020-07-02 Completed [facility] MRNA VACCINATION 00:00:00 [facility] PFIZER COVID-19 2020-07-02 Completed [facility] MRNA VACCINATION 00:00:00 [facility] SARS-COV-2 COVID-19 2020-07-02 Completed [facility] of PFIZER VACCINE 00:00:00 [facility] SARS-COV-2 COVID-19 2020-07-02 Completed [facility] of PFIZER VACCINE 00:00:00 [facility] SARS-COV-2 COVID-19 2020-07-02 Completed [facility] of PFIZER VACCINE 00:00:00 [facility] SARS-COV-2 COVID-19 2020-07-02 Completed [facility] of PFIZER VACCINE 00:00:00 [facility] SARS-COV-2 COVID-19 2020-07-02 Completed [facility] of PFIZER VACCINE 00:00:00 [facility] SARS-COV-2 COVID-19 2020-07-02 Completed [facility] of PFIZER VACCINE 00:00:00 [facility] SARS-COV-2 COVID-19 2020-07-02 Completed [facility] of PFIZER VACCINE 00:00:00 [facility] SARS-COV-2 COVID-19 2020-07-02 Completed [facility] of PFIZER VACCINE 00:00:00 [facility] SARS-COV-2 COVID-19 2020-07-02 Completed [facility] of PFIZER VACCINE 00:00:00 [facility] SARS-COV-2 COVID-19 2020-07-02 Completed [facility] of PFIZER VACCINE 00:00:00 [facility] SARS-COV-2 COVID-19 2020-07-02 Completed [facility] of PFIZER VACCINE 00:00:00 [facility] SARS-COV-2 COVID-19 2020-07-02 Completed [facility] of PFIZER VACCINE 00:00:00 [facility] SARS-COV-2 COVID-19 2020-07-02 Completed [facility] of PFIZER VACCINE 00:00:00 [facility] SARS-COV-2 COVID-19 2020-07-02 Completed [facility] of PFIZER VACCINE 00:00:00 [facility] SARS-COV-2 COVID-19 2020-07-02 Completed [facility] of PFIZER VACCINE 00:00:00 [facility] SARS-COV-2 COVID-19 2020-07-02 Completed [facility] of PFIZER VACCINE 00:00:00 [facility] SARS-COV-2 COVID-19 2020-07-02 Completed [facility] of PFIZER VACCINE 00:00:00 [facility] SARS-COV-2 COVID-19 2020-07-02 Completed [facility] of PFIZER VACCINE 00:00:00 [facility] PFIZER COVID-19 2020-07-02 Completed [facility] MRNA VACCINATION 00:00:00 [facility] Influenza Virus 2017-03-08 Completed [facility] Vaccine 00:00:00 [facility] Influenza Virus 2017-03-08 Completed [facility] Vaccine 00:00:00 [facility] Influenza Virus 2017-03-08 Completed [facility] Vaccine 00:00:00 [facility] Influenza Virus 2017-03-08 Completed [facility] Vaccine 00:00:00 [facility] Influenza Virus 2017-03-08 Completed [facility] Vaccine 00:00:00 [facility] Influenza Virus 2017-03-08 Completed [facility] Vaccine 00:00:00 [facility] Influenza Virus 2017-03-08 Completed [facility] Vaccine 00:00:00 [facility] Influenza Virus 2017-03-08 Completed [facility] Vaccine 00:00:00 [facility] Influenza Virus 2017-03-08 Completed [facility] Vaccine 00:00:00 [facility] Influenza Virus 2017-03-08 Completed [facility] Vaccine 00:00:00 [facility] Influenza Virus 2017-03-08 Completed [facility] Vaccine 00:00:00 [facility] Influenza Virus 2017-03-08 Completed [facility] Vaccine 00:00:00 [facility] Influenza Virus 2017-03-08 Completed [facility] Vaccine 00:00:00 [facility] Influenza Virus 2017-03-08 Completed [facility] Vaccine 00:00:00 [facility] Influenza Virus 2017-03-08 Completed [facility] Vaccine 00:00:00 [facility] Influenza Virus 2017-03-08 Completed [facility] Vaccine 00:00:00 [facility] Influenza Virus 2017-03-08 Completed [facility] Vaccine 00:00:00 [facility] Influenza Virus 2017-03-08 Completed [facility] Vaccine 00:00:00 [facility] Influenza Virus 2017-03-08 Completed [facility] Vaccine 00:00:00 [facility] Influenza Virus 2017-03-08 Completed [facility] Vaccine 00:00:00 [facility] Influenza Virus 2017-03-08 Completed [facility] Vaccine 00:00:00 [facility] Influenza Virus 2017-03-08 Completed [facility] Vaccine 00:00:00 [facility] Influenza Virus 2014-01-30 Completed [facility] Vaccine (3+ yrs) 00:00:00 [facility] Pneumococcal 13 2014-01-30 Completed [facility] Conjugate, PCV13 00:00:00 [facility] dical (Prevnar 13) Branch Influenza Virus 2014-01-30 Completed [facility]3+ yrs) 00:[facility] 2014[facility]-30 Completed [facility] Conjugate, PCV13 00:00:00 [facility] (Prevnar 13) Branch Influenza Virus 2014-01-30 Completed [facility] Vaccine (3+ yrs) 00:00:00 [place] [facility] Pneumococcal 13 2014-01-30 Completed [facility] Conjugate, PCV13 00:00:00 [place] [facility] (Prevnar 13) [facility] Influenza Virus 2014-01-30 Completed [facility] Vaccine (3+ yrs) 00:00:00 [place] [facility] Pneumococcal 13 2014-01-30 Completed [facility] Conjugate, PCV13 00:00:00 [place] [facility] (Prevnar 13) [facility] Influenza Virus 2014-01-30 Completed [facility] Vaccine (3+ yrs) 00:00:00 [place] [facility] Pneumococcal 13 2014-01-30 Completed [facility] Conjugate, PCV13 00:00:00 [place] [facility] (Prevnar 13) [facility] Influenza Virus 2014-01-30 Completed [facility] Vaccine (3+ yrs) 00:00:00 [facility] Pneumococcal 13 2014-01-30 Completed [facility] of Conjugate, PCV13 00:00:00 [facility] (Prevnar 13) Branch Influenza Virus 2014-01-30 Completed [facility] Vaccine (3+ yrs) 00:00:00 [facility] Pneumococcal 13 2014-01-30 Completed [facility] of Conjugate, PCV13 00:00:00 [facility] (Prevnar 13) Branch Influenza Virus 2014-01-30 Completed [facility] Vaccine (3+ yrs) 00:00:00 [facility] Pneumococcal 13 2014-01-30 Completed [facility] of Conjugate, PCV13 00:00:00 [facility] (Prevnar 13) Branch Influenza Virus 2014-01-30 Completed [facility] Vaccine (3+ yrs) 00:00:00 [facility] Pneumococcal 13 2014-01-30 Completed [facility] of Conjugate, PCV13 00:00:00 [facility] (Prevnar 13) Branch Influenza Virus 2014-01-30 Completed [facility] Vaccine (3+ yrs) 00:00:00 [facility] Pneumococcal 13 2014-01-30 Completed [facility] of Conjugate, PCV13 00:00:00 [facility] (Prevnar 13) Branch Influenza Virus 2014-01-30 Completed [facility] Vaccine (3+ yrs) 00:00:00 [facility] Pneumococcal 13 2014-01-30 Completed [facility] Conjugate, PCV13 00:00:00 [place] [facility] (Prevnar 13) [facility] Influenza Virus 2014-01-30 Completed [facility] Vaccine (3+ yrs) 00:00:00 [place] [facility] Pneumococcal 13 2014-01-30 Completed [facility] Conjugate, PCV13 00:00:00 [place] [facility] (Prevnar 13) [facility] Influenza Virus 2014-01-30 Completed [facility] Vaccine (3+ yrs) 00:00:00 [place] [facility] Pneumococcal 13 2014-01-30 Completed [facility] Conjugate, PCV13 00:00:00 [place] [facility] (Prevnar 13) [facility] Influenza Virus 2014-01-30 Completed [facility] Vaccine (3+ yrs) 00:00:00 [place] [facility] Pneumococcal 13 2014-01-30 Completed [facility] Conjugate, PCV13 00:00:00 [place] [facility] (Prevnar 13) [facility] Influenza Virus 2014-01-30 Completed [facility] Vaccine (3+ yrs) 00:00:00 [place] [facility] Pneumococcal 13 2014-01-30 Completed [facility] Conjugate, PCV13 00:00:00 [place] [facility] (Prevnar 13) [facility] Influenza Virus 2014-01-30 Completed [facility] Vaccine (3+ yrs) 00:00:00 [place] [facility] Pneumococcal 13 2014-01-30 Completed [facility] Conjugate, PCV13 00:00:00 [place] [facility] (Prevnar 13) Branch Influenza Virus 2014-01-30 Completed [facility] Vaccine (3+ yrs) 00:00:00 [facility] Pneumococcal 13 2014-01-30 Completed [facility] of Conjugate, PCV13 00:00:00 [place] [facility] (Prevnar 13) Branch Influenza Virus 2014-01-30 Completed [facility] Vaccine (3+ yrs) 00:00:00 [facility] Pneumococcal 13 2014-01-30 Completed [facility] Conjugate, PCV13 00:00:00 [place] [facility] (Prevnar 13) Branch Influenza Virus 2014-01-30 Completed [facility] Vaccine (3+ yrs) 00:00:00 [facility] Pneumococcal 13 2014-01-30 Completed [facility] Conjugate, PCV13 00:00:00 [place] [facility] (Prevnar 13) Branch Influenza Virus 2014-01-30 Completed [facility] Vaccine (3+ yrs) 00:00:00 [facility] Pneumococcal 13 2014-01-30 Completed [facility] of Conjugate, PCV13 00:00:00 [facility] (Prevnar 13) Branch Influenza Virus 2014-01-30 Completed [facility] Vaccine (3+ yrs) 00:00:00 [facility] Pneumococcal 13 2014-01-30 Completed [facility] of Conjugate, PCV13 00:00:00 [facility] (Prevnar 13) Branch Influenza Virus 2014-01-30 Completed [facility] Vaccine (3+ yrs) 00:00:00 [facility] Pneumococcal 13 2014-01-30 Completed [facility] of Conjugate, PCV13 00:00:00 [facility] (Prevnar 13) Branch Pneumococcal 2012-02-16 Completed [facility] o f Polysaccharide, 00:00:00 [place] [facility] PPSV23 (PNEUMOVAX) Branch Influenza Virus 2012-02-16 Completed [facility] Vaccine 00:00:00 [facility] PPD (TB) 2012-02-16 Completed [facility] of 00:00:00 [facility] Pneumococcal 2012-02-16 Completed [facility] o f Polysaccharide, 00:00:00 [place] [facility] PPSV23 (PNEUMOVAX) Branch Influenza Virus 2012-02-16 Completed [facility] Vaccine 00:00:00 [facility] PPD (TB) 2012-02-16 Completed [facility] of 00:00:00 [facility] Pneumococcal 2012-02-16 Completed [facility] o f Polysaccharide, 00:00:00 [place] [facility] PPSV23 (PNEUMOVAX) Branch Influenza Virus 2012-02-16 Completed [facility] Vaccine 00:00:00 [facility] PPD (TB) 2012-02-16 Completed [facility] of 00:00:00 [facility] Pneumococcal 2012-02-16 Completed [facility] o f Polysaccharide, 00:00:00 [place] [facility] PPSV23 (PNEUMOVAX) Branch Influenza Virus 2012-02-16 Completed [facility] Vaccine 00:00:00 [facility] PPD (TB) 2012-02-16 Completed [facility] of 00:00:00 [facility] Pneumococcal 2012-02-16 Completed [facility] o f Polysaccharide, 00:00:00 [place] [facility] PPSV23 (PNEUMOVAX) Branch Influenza Virus 2012-02-16 Completed [facility] Vaccine 00:00:00 [facility] PPD (TB) 2012-02-16 Completed [facility] of 00:00:00 [facility] Pneumococcal 2012-02-16 Completed [facility] o f Polysaccharide, 00:00:00 [place] [facility] PPSV23 (PNEUMOVAX) Branch Influenza Virus 2012-02-16 Completed [facility] of Vaccine 00:00:00 [facility] PPD (TB) 2012-02-16 Completed [facility] of 00:00:00 [facility] Pneumococcal 2012-02-16 Completed [facility] o f Polysaccharide, 00:00:00 [place] [facility] PPSV23 (PNEUMOVAX) Branch Influenza Virus 2012-02-16 Completed [facility] of Vaccine 00:00:00 [facility] PPD (TB) 2012-02-16 Completed [facility] of 00:00:00 [facility] Pneumococcal 2012-02-16 Completed [facility] o f Polysaccharide, 00:00:00 [place] [facility] PPSV23 (PNEUMOVAX) Branch Influenza Virus 2012-02-16 Completed [facility] Vaccine 00:00:00 [facility] PPD (TB) 2012-02-16 Completed [facility] of 00:00:00 [facility] Pneumococcal 2012-02-16 Completed [facility] o f Polysaccharide, 00:00:00 [place] [facility] PPSV23 (PNEUMOVAX) Branch Influenza Virus 2012-02-16 Completed [facility] of Vaccine 00:00:00 [facility] PPD (TB) 2012-02-16 Completed [facility] of 00:00:00 [facility] Pneumococcal 2012-02-16 Completed [facility] o f Polysaccharide, 00:00:00 [place] [facility] PPSV23 (PNEUMOVAX) Branch Influenza Virus 2012-02-16 Completed [facility] Vaccine 00:00:00 [facility] PPD (TB) 2012-02-16 Completed [facility] of 00:00:00 [facility] Pneumococcal 2012-02-16 Completed [facility] o f Polysaccharide, 00:00:00 [place] [facility] PPSV23 (PNEUMOVAX) Branch Influenza Virus 2012-02-16 Completed [facility] Vaccine 00:00:00 [facility] PPD (TB) 2012-02-16 Completed [facility] of 00:00:00 [facility] Pneumococcal 2012-02-16 Completed [facility] o f Polysaccharide, 00:00:00 [place] [facility] PPSV23 (PNEUMOVAX) Branch Influenza Virus 2012-02-16 Completed [facility] Vaccine 00:00:00 [facility] PPD (TB) 2012-02-16 Completed [facility] of 00:00:00 [facility] Pneumococcal 2012-02-16 Completed [facility] o f Polysaccharide, 00:00:00 [place] [facility] PPSV23 (PNEUMOVAX) Branch Influenza Virus 2012-02-16 Completed [facility] of Vaccine 00:00:00 [facility] PPD (TB) 2012-02-16 Completed [facility] of 00:00:00 [facility] Pneumococcal 2012-02-16 Completed [facility] o f Polysaccharide, 00:00:00 [place] [facility] PPSV23 (PNEUMOVAX) Branch Influenza Virus 2012-02-16 Completed [facility] Vaccine 00:00:00 [facility] PPD (TB) 2012-02-16 Completed [facility] of 00:00:00 [facility] Pneumococcal 2012-02-16 Completed [facility] o f Polysaccharide, 00:00:00 [place] [facility] PPSV23 (PNEUMOVAX) Branch Influenza Virus 2012-02-16 Completed [facility] of Vaccine 00:00:00 [facility] PPD (TB) 2012-02-16 Completed [facility] of 00:00:00 [facility] Pneumococcal 2012-02-16 Completed [facility] o f Polysaccharide, 00:00:00 [place] [facility] PPSV23 (PNEUMOVAX) Branch Influenza Virus 2012-02-16 Completed [facility] of Vaccine 00:00:00 [facility] PPD (TB) 2012-02-16 Completed [facility] of 00:00:00 [facility] Pneumococcal 2012-02-16 Completed [facility] o f Polysaccharide, 00:00:00 [place] [facility] PPSV23 (PNEUMOVAX) Branch Influenza Virus 2012-02-16 Completed [facility] of Vaccine 00:00:00 [facility] PPD (TB) 2012-02-16 Completed [facility] of 00:00:00 [facility] Pneumococcal 2012-02-16 Completed [facility] o f Polysaccharide, 00:00:00 [place] [facility] PPSV23 (PNEUMOVAX) Branch Influenza Virus 2012-02-16 Completed [facility] of Vaccine 00:00:00 [facility] PPD (TB) 2012-02-16 Completed [facility] of 00:00:00 [facility] Pneumococcal 2012-02-16 Completed [facility] o f Polysaccharide, 00:00:00 [place] [facility] PPSV23 (PNEUMOVAX) Branch Influenza Virus 2012-02-16 Completed [facility] of Vaccine 00:00:00 [facility] PPD (TB) 2012-02-16 Completed [facility] of 00:00:00 [facility] Pneumococcal 2012-02-16 Completed [facility] o f Polysaccharide, 00:00:00 [place] [facility] PPSV23 (PNEUMOVAX) Branch Influenza Virus 2012-02-16 Completed [facility] of Vaccine 00:00:00 [facility] PPD (TB) 2012-02-16 Completed [facility] of 00:00:00 [facility] Pneumococcal 2012-02-16 Completed [facility] o f Polysaccharide, 00:00:00 [place] [facility] PPSV23 (PNEUMOVAX) Branch Influenza Virus 2012-02-16 Completed [facility] of Vaccine 00:00:00 [facility] PPD (TB) 2012-02-16 Completed [facility] of 00:00:00 [facility] Pneumococcal 2012-02-16 Completed [facility] o f Polysaccharide, 00:00:00 [place] [facility] PPSV23 (PNEUMOVAX) Branch Influenza Virus 2012-02-16 Completed [facility] of Vaccine 00:00:00 [facility] PPD (TB) 2012-02-16 Completed [facility] of 00:00:00 [facility] Hep B, Adol or Pedi 2011-09-01 Completed Unive rsity of Dosage 00:00:00 [facility] Hep B, Adol or Pedi 2011-09-01 Completed Unive rsity of Dosage 00:00:00 [facility] Hep B, Adol or Pedi 2011-09-01 Completed Unive rsity of Dosage 00:00:00 [facility] Hep B, Adol or Pedi 2011-09-01 Completed Unive rsity of Dosage 00:00:00 [facility] Hep B, Adol or Pedi 2011-09-01 Completed Unive rsity of Dosage 00:00:00 [facility] Hep B, Adol or Pedi 2011-09-01 Completed Unive rsity of Dosage 00:00:00 [facility] Hep B, Adol or Pedi 2011-09-01 Completed Unive rsity of Dosage 00:00:00 [facility] Hep B, Adol or Pedi 2011-09-01 Completed Unive rsity of Dosage 00:00:00 [facility] Hep B, Adol or Pedi 2011-09-01 Completed Unive rsity of Dosage 00:00:00 [facility] Hep B, Adol or Pedi 2011-09-01 [...] 2011-03-17 Completed Unive rsity of Dosage 00:00:00 [facility] Influenza Virus 2011-02-10 Completed [facility] Vaccine 00:00:00 [facility] Hep B, Adol or Pedi 2011-02-10 Completed Unive rsity of Dosage 00:00:00 [facility] Influenza Virus 2011-02-10 Completed [facility] of Vaccine 00:00:00 [facility] Hep B, Adol or Pedi 2011-02-10 Completed Unive rsity of Dosage 00:00:00 [facility] Influenza Virus 2011-02-10 Completed [facility] of Vaccine 00:00:00 [facility] Hep B, Adol or Pedi 2011-02-10 Completed Unive rsity of Dosage 00:00:00 [facility] Influenza Virus 2011-02-10 Completed [facility] Vaccine 00:00:00 [facility] Hep B, Adol or Pedi 2011-02-10 Completed Unive rsity of Dosage 00:00:00 [facility] Influenza Virus 2011-02-10 Completed [facility] of Vaccine 00:00:00 [facility] Hep B, Adol or Pedi 2011-02-10 Completed [facility]ive rsity of Dosage 00:00:00 [facility] Influenza Virus 2011-02-10 Completed [facility] of Vaccine 00:00:00 [facility] Hep B, Adol or Pedi 2011-02-10 Completed [facility]ive rsity of Dosage 00:00:00 [facility] Influenza Virus 2011-02-10 Completed [facility] Vaccine 00:00:00 [facility] Hep B, Adol or Pedi 2011-02-10 Completed [facility]ive rsity of Dosage 00:00:00 [facility] Influenza Virus 2011-02-10 Completed [facility] of Vaccine 00:00:00 [facility] Hep B, Adol or Pedi 2011-02-10 Completed [facility]ive rsity of Dosage 00:00:00 [facility] Influenza Virus 2011-02-10 Completed [facility] Vaccine 00:00:00 [facility] Hep B, Adol or Pedi 2011-02-10 Completed [facility]ive rsity of Dosage 00:00:00 [facility] Influenza Virus 2011-02-10 Completed [facility] Vaccine 00:00:00 [facility] Hep B, Adol or Pedi 2011-02-10 Completed [facility]ive rsity of Dosage 00:00:00 [facility] Influenza Virus 2011-02-10 Completed [facility] of Vaccine 00:00:00 [facility] Hep B, Adol or Pedi 2011-02-10 Completed [facility]ive rsity of Dosage 00:00:00 [facility] Influenza Virus 2011-02-10 Completed [facility] of Vaccine 00:00:00 [facility] Hep B, Adol or Pedi 2011-02-10 Completed [facility]ive rsity of Dosage 00:00:00 [facility] Influenza Virus 2011-02-10 Completed [facility] Vaccine 00:00:00 [facility] Hep B, Adol or Pedi 2011-02-10 Completed [facility]ive rsity of Dosage 00:00:00 [facility] Influenza Virus 2011-02-10 Completed [facility] Vaccine 00:00:00 [facility] Hep B, Adol or Pedi 2011-02-10 Completed [facility]ive rsity of Dosage 00:00:00 [facility] Influenza Virus 2011-02-10 Completed [facility] of Vaccine 00:00:00 [facility] Hep B, Adol or Pedi 2011-02-10 Completed [facility] rsity of Dosage 00:00:00 [facility] Influenza Virus 2011-02-10 Completed [facility] Vaccine 00:00:00 [facility] Hep B, Adol or Pedi 2011-02-10 Completed [facility]ive rsity of Dosage 00:00:00 [facility] Influenza Virus 2011-02-10 Completed [facility] Vaccine 00:00:00 [facility] Hep B, Adol or Pedi 2011-02-10 Completed [facility]ive rsity of Dosage 00:00:00 [facility] Influenza Virus 2011-02-10 Completed [facility] of Vaccine 00:00:00 [facility] Hep B, Adol or Pedi 2011-02-10 Completed [facility]ive rsity of Dosage 00:00:00 [facility] Influenza Virus 2011-02-10 Completed [facility] Vaccine 00:00:00 [facility] Hep B, Adol or Pedi 2011-02-10 Completed [facility] rsity of Dosage 00:00:00 [facility] Influenza Virus 2011-02-10 Completed [facility] Vaccine 00:00:00 [facility] Hep B, Adol or Pedi 2011-02-10 Completed [facility]ive rsity of Dosage 00:00:00 [facility] Influenza Virus 2011-02-10 Completed [facility] Vaccine 00:00:00 [facility] Hep B, Adol or Pedi 2011-02-10 Completed [facility] rsity of Dosage 00:00:00 [facility] Influenza Virus 2011-02-10 Completed [facility] Vaccine 00:00:00 [facility] Hep B, Adol or Pedi 2011-02-10 Completed [facility]ive rsity of Dosage 00:00:00 [facility] PPD (TB) 2010-11-18 Completed [facility] of 00:00:00 [facility] TDAP (ADACEL) 2010-11-18 Completed [facility] of VACCINE 00:00:00 [facility] PPD (TB) 2010-11-18 Completed [facility] of 00:00:00 [facility] TDAP (ADACEL) 2010-11-18 Completed [facility] of VACCINE 00:00:00 [facility] PPD (TB) 2010-11-18 Completed [facility] of 00:00:00 [facility] TDAP (ADACEL) 2010-11-18 Completed [facility] of VACCINE 00:00:00 [facility] PPD (TB) 2010-11-18 Completed [facility] of 00:00:00 [facility] TDAP (ADACEL) 2010-11-18 Completed [facility] of VACCINE 00:00:00 [facility] PPD (TB) 2010-11-18 Completed [facility] of 00:00:00 [facility] TDAP (ADACEL) 2010-11-18 Completed [facility] of VACCINE 00:00:00 [facility] PPD (TB) 2010-11-18 Completed [facility] of 00:00:00 [facility] TDAP (ADACEL) 2010-11-18 Completed [facility] of VACCINE 00:00:00 [facility] PPD (TB) 2010-11-18 Completed [facility] of 00:00:00 [facility] TDAP (ADACEL) 2010-11-18 Completed [facility] of VACCINE 00:00:00 [facility] PPD (TB) 2010-11-18 Completed [facility] of 00:00:00 [facility] TDAP (ADACEL) 2010-11-18 Completed [facility] of VACCINE 00:00:00 [facility] PPD (TB) 2010-11-18 Completed [facility] of 00:00:00 [facility] TDAP (ADACEL) 2010-11-18 Completed [facility] of VACCINE 00:00:00 [facility] PPD (TB) 2010-11-18 Completed [facility] of 00:00:00 [facility] TDAP (ADACEL) 2010-11-18 Completed [facility] of VACCINE 00:00:00 [facility] PPD (TB) 2010-11-18 Completed [facility] of 00:00:00 [facility] TDAP (ADACEL) 2010-11-18 Completed [facility] of VACCINE 00:00:00 [facility] PPD (TB) 2010-11-18 Completed [facility] of 00:00:00 [facility] TDAP (ADACEL) 2010-11-18 Completed [facility] of VACCINE 00:00:00 [facility] PPD (TB) 2010-11-18 Completed [facility] of 00:00:00 [facility] TDAP (ADACEL) 2010-11-18 Completed [facility] of VACCINE 00:00:00 [facility] PPD (TB) 2010-11-18 Completed [facility] of 00:00:00 [facility] TDAP (ADACEL) 2010-11-18 Completed [facility] of VACCINE 00:00:00 [facility] PPD (TB) 2010-11-18 Completed [facility] of 00:00:00 [facility] TDAP (ADACEL) 2010-11-18 Completed [facility] of VACCINE 00:00:00 [facility] PPD (TB) 2010-11-18 Completed [facility] of 00:00:00 [facility] TDAP (ADACEL) 2010-11-18 Completed [facility] of VACCINE 00:00:00 [facility] PPD (TB) 2010-11-18 Completed [facility] of 00:00:00 [facility] TDAP (ADACEL) 2010-11-18 Completed [facility] of VACCINE 00:00:00 [facility] PPD (TB) 2010-11-18 Completed [facility] of 00:00:00 [facility] TDAP (ADACEL) 2010-11-18 Completed [facility] of VACCINE 00:00:00 [facility] PPD (TB) 2010-11-18 Completed [facility] of 00:00:00 [facility] TDAP (ADACEL) 2010-11-18 Completed [facility] of VACCINE 00:00:00 [facility] PPD (TB) 2010-11-18 Completed [facility] of 00:00:00 [facility] TDAP (ADACEL) 2010-11-18 Completed [facility] of VACCINE 00:00:00 [facility] PPD (TB) 2010-11-18 Completed [facility] of 00:00:00 [facility] TDAP (ADACEL) 2010-11-18 Completed [facility] of VACCINE 00:00:00 [facility] PPD (TB) 2010-11-18 Completed [facility] of 00:00:00 [facility] TDAP (ADACEL) 2010-11-18 Completed [facility] of VACCINE 00:00:00 [facility] HEPATITIS A 2004-03-02 Completed [facility] of 00:00:00 [facility] HEPATITIS A 2004-03-02 Completed [facility] of 00:00:00 [facility] HEPATITIS A 2004-03-02 Completed [facility] of 00:00:00 [facility] HEPATITIS A 2004-03-02 Completed [facility] of 00:00:00 [facility] HEPATITIS A 2004-03-02 Completed [facility] of 00:00:00 [facility] HEPATITIS A 2004-03-02 Completed [facility] of 00:00:00 [facility] HEPATITIS A 2004-03-02 Completed [facility] of 00:00:00 [facility] HEPATITIS A 2004-03-02 Completed [facility] of 00:00:00 [facility] HEPATITIS A 2004-03-02 Completed University [...] A 2003-08-01 Completed [facility] of 00:00:00 [facility] HEPATITIS A 2003-08-01 Completed [facility] of 00:00:00 [facility] HEPATITIS A 2003-08-01 Completed [facility] of 00:00:00 [facility] HEPATITIS A 2003-08-01 Completed [facility] of 00:00:00 [facility] HEPATITIS A 2003-08-01 Completed University [...] HEPATITIS A 2003-08-01 Completed [facility] of 00:00:00 [facility] HEPATITIS A 2003-08-01 Completed [facility] of 00:00:00 [facility] HEPATITIS A 2003-08-01 Completed [facility] of 00:00:00 [facility] HEPATITIS A 2003-08-01 Completed [facility] of 00:00:00 [facility] HEPATITIS A 2003-08-01 Completed [facility] of 00:00:00 [facility] Pneumococcal 2001-10-04 Completed [facility] o f Polysaccharide, 00:00:00 [place] [facility] PPSV23 (PNEUMOVAX) Branch PPD (TB) 2001-10-04 Completed [facility] of 00:00:00 [facility] Pneumococcal 2001-10-04 Completed [facility] o f Polysaccharide, 00:00:00 [place] [facility] PPSV23 (PNEUMOVAX) Branch PPD (TB) 2001-10-04 Completed [facility] of 00:00:00 [facility] Pneumococcal 2001-10-04 Completed [facility] o f Polysaccharide, 00:00:00 [place] [facility] PPSV23 (PNEUMOVAX) Branch PPD (TB) 2001-10-04 Completed [facility] of 00:00:00 [facility] Pneumococcal 2001-10-04 Completed [facility] o f Polysaccharide, 00:00:00 [place] [facility] PPSV23 (PNEUMOVAX) Branch PPD (TB) 2001-10-04 Completed [facility] of 00:00:00 [facility] Pneumococcal 2001-10-04 Completed [facility] o f Polysaccharide, 00:00:00 [place] [facility] PPSV23 (PNEUMOVAX) Branch PPD (TB) 2001-10-04 Completed [facility] of 00:00:00 [facility] Pneumococcal 2001-10-04 Completed [facility] o f Polysaccharide, 00:00:00 [place] [facility] PPSV23 (PNEUMOVAX) [facility] PPD (TB) 2001-10-04 Completed [facility] of 00:00:00 [facility] Pneumococcal 2001-10-04 Completed [facility] o f Polysaccharide, 00:00:00 [place] [facility] PPSV23 (PNEUMOVAX) Branch PPD (TB) 2001-10-04 Completed [facility] of 00:00:00 [facility] Pneumococcal 2001-10-04 Completed [facility] o f Polysaccharide, 00:00:00 [place] [facility] PPSV23 (PNEUMOVAX) Branch PPD (TB) 2001-10-04 Completed University of 00:00:00 [facility] Pneumococcal 2001-10-04 Completed University o f Polysaccharide, 00:00:00 [place] [facility] PPSV23 (PNEUMOVAX) Branch PPD (TB) 2001-10-04 Completed University of 00:00:00 [facility] Pneumococcal 2001-10-04 Completed University o f Polysaccharide, 00:00:00 [place] [facility] PPSV23 (PNEUMOVAX) Branch PPD (TB) 2001-10-04 Completed University of 00:00:00 [facility] Pneumococcal 2001-10-04 Completed University o f Polysaccharide, 00:00:00 [place] [facility] PPSV23 (PNEUMOVAX) Branch PPD (TB) 2001-10-04 Completed University of 00:00:00 [facility] Pneumococcal 2001-10-04 Completed University o f Polysaccharide, 00:00:00 [place] [facility] PPSV23 (PNEUMOVAX) Branch PPD (TB) 2001-10-04 Completed [facility] of 00:00:00 [facility] Pneumococcal 2001-10-04 Completed University o f Polysaccharide, 00:00:00 [place] [facility] PPSV23 (PNEUMOVAX) Branch PPD (TB) 2001-10-04 Completed University of 00:00:00 [facility] Pneumococcal 2001-10-04 Completed University o f Polysaccharide, 00:00:00 [place] [facility] PPSV23 (PNEUMOVAX) Branch PPD (TB) 2001-10-04 Completed [facility] of 00:00:00 [facility] Pneumococcal 2001-10-04 Completed University o f Polysaccharide, 00:00:00 [place] [facility] PPSV23 (PNEUMOVAX) Branch PPD (TB) 2001-10-04 Completed University of 00:00:00 [facility] Pneumococcal 2001-10-04 Completed University o f Polysaccharide, 00:00:00 [place] [facility] PPSV23 (PNEUMOVAX) Branch PPD (TB) 2001-10-04 Completed University of 00:00:00 [facility] Pneumococcal 2001-10-04 Completed University o f Polysaccharide, 00:00:00 [place] [facility] PPSV23 (PNEUMOVAX) Branch PPD (TB) 2001-10-04 Completed [facility] of 00:00:00 [facility] Pneumococcal 2001-10-04 Completed University o f Polysaccharide, 00:00:00 [place] [facility] PPSV23 (PNEUMOVAX) Branch PPD (TB) 2001-10-04 Completed [facility] of 00:00:00 [facility] Pneumococcal 2001-10-04 Completed University o f Polysaccharide, 00:00:00 [place] [facility] PPSV23 (PNEUMOVAX) Branch PPD (TB) 2001-10-04 Completed [facility] of 00:00:00 [facility] Pneumococcal 2001-10-04 Completed University o f Polysaccharide, 00:00:00 [place] [facility] PPSV23 (PNEUMOVAX) Branch PPD (TB) 2001-10-04 Completed [facility] of 00:00:00 [facility] Pneumococcal 2001-10-04 Completed University o f Polysaccharide, 00:00:00 [place] [facility] PPSV23 (PNEUMOVAX) Branch PPD (TB) 2001-10-04 Completed [facility] of 00:00:00 [facility] Pneumococcal 2001-10-04 Completed University o f Polysaccharide, 00:00:00 [place] [facility] PPSV23 (PNEUMOVAX) Branch PPD (TB) 2001-10-04 Completed University of 00:00:00 [facility] Vital Signs Vital Name Observation Time Observation Value Comments Source Systolic blood 2022-05-10 22:00:00 159 mm[Hg] Univer sity of pressure [facility] Diastolic blood 2022-05-10 22:00:00 87 mm[Hg] Unive rsity of pressure [facility] Heart rate 2022-05-10 22:00:00 56 /min [facility] Body temperature 2022-05-10 22:00:00 36.61 Amina [facility] 2022-05-10 22:00:00 17 /min Univ ersity [facility] [place] [facility] Oxygen saturation in 2022-05-10 22:00:00 98 /min University of Arterial blood by [place] [facility] Pulse oximetry Branch Body weight 2022-05-10 [...] 99 /min University of Arterial blood by [facility] porfirio Pulse oximetry Branch Body temperature 2022-05-06 [...] 2022-04-22 19:50:00 69 /min Universi ty of [facility] Body temperature 2022-04-22 19:50:00 36.67 Amina Univ ersity of [facility] Respiratory rate 2022-04-22 19:50:00 17 /min Univ ersity of [place] [facility] Body height 2022-04-22 19:50:00 162.6 cm Universi ty of [place] [facility] Body weight 2022-04-22 19:50:00 80.74 kg Universi ty of [place] [facility] BMI 2022-04-22 19:50:00 30.55 kg/m2 Universi ty of [facility] Oxygen saturation in 2022-04-22 19:50:00 [...] /min Universi ty of [place] [facility] Body temperature 2022-03-05 15:18:00 36.67 Amina Univ ersity of [facility] Respiratory rate 2022-03-05 15:18:00 18 /min Univ ersity of [facility] Branch Body height 2022-03-05 15:18:00 162.6 cm [...] /min Universi ty of [place] [facility] Body temperature 2022-02-16 21:41:00 36.56 Amina [facility] ersity of [facility] Respiratory rate 2022-02-16 21:41:00 17 /min [facility] Oxygen saturation in 2022-02-16 21:41:00 98 /min [facility] Arterial blood by [facility] Pulse oximetry Branch Body height 2022-02-11 16:02:00 162.6 cm Universi ty of [place] [facility] Body weight 2022-02-11 16:02:00 79.379 kg Universi ty of [place] [facility] BMI 2022-02-11 16:02:00 30.04 kg/m2 Universi ty of [facility] Systolic blood 2021-11-20 13:47:00 165 mm[Hg] Univer sity of pressure [place] [facility] Diastolic blood 2021-11-20 13:47:00 83 mm[Hg] Unive rsity of [facility] Heart rate 2021-11-20 13:47:00 58 /min Universi ty of [place] [facility] Body temperature 2021-11-20 13:42:00 36.39 Amina [facility] ersity of [facility] Respiratory rate 2021-11-20 13:42:00 16 /min [facility] ersity of [facility] Body height 2021-11-20 13:42:00 162.6 cm Universi ty of [place] [facility] Body weight 2021-11-20 13:42:00 84.369 kg Universi ty of [place] [facility] BMI 2021-11-20 13:42:00 31.93 kg/m2 Universi ty of [facility] Systolic blood 2021-07-14 15:18:00 142 mm[Hg] [...] 159 mm[Hg] Univer sity of pressure [facility] [place] [facility] Diastolic blood 2022-05-10 22:00:00 87 mm[Hg] Unive rsity of pressure [facility] [place] [facility] Heart rate 2022-05-10 22:00:00 56 /min [facility] [place] [facility] Body temperature 2022-05-10 22:00:00 36.61 Amina Univ ersity of [place] [facility] Respiratory rate 2022-05-10 22:00:00 17 /min Univ ersity of [place] [facility] Oxygen saturation in 2022-05-10 22:00:00 98 /min University of Arterial blood by [facility] Pulse oximetry Branch Body weight 2022-05-10 16:29:00 78.926 kg Universi ty of [place] [facility] BMI 2022-05-10 16:29:00 29.87 kg/m2 [facility] ty [facility] [place] [facility] Body height 2022-05-06 20:12:00 162.6 cm Universi ty of [place] [facility] Systolic blood 2022-03-05 15:23:00 167 [...] Systolic blood 2020-12-08 15:48:00 125 mm[Hg] [facility] Diastolic blood 2020-12-08 15:48:00 76 mm[Hg] [facility] pressure Heart rate 2020-12-08 15:48:00 64 /min [facility] Body temperature 2020-12-08 15:48:00 36.61 Amina [facility] [place] Respiratory rate 2020-12-08 15:48:00 17 /min [facility] Body height 2020-12-08 15:48:00 162.6 cm [facility] Body weight 2020-12-08 15:48:00 98.884 kg [facility] BMI 2020-12-08 15:48:00 37.42 kg/m2 [facility] Oxygen saturation in 2020-12-08 15:48:00 97 /min [facility] Arterial blood by Pulse oximetry Respitory Rate 2020-08-30 13:00:[address] [facility] [facility] [place] Systolic (mm Hg) 2020-08-30 13:00:00 Caesar rial [place] Diastolic (mm Hg) 2020-08-30 13:00:00 Mem orial [facility] Systolic (mm Hg) 2020-08-30 11:00:00 Caesar rial [place] Diastolic (mm Hg) 2020-08-30 11:00:00 Mem orial [place] Temperature Oral (F) 2020-08-30 11:00:00 98.4 F [facility] [place] Respitory Rate 2020-08-30 11:00:00 Memori al [facility] Respitory Rate 2020-08-30 10:00:00 Mem[facility] al [facility] Systolic (mm Hg) 2020-08-30 10:00:00 Caesar rial [facility] Diastolic (mm Hg) 2020-08-30 10:00:00 Mem orial [facility] Temperature Oral (F) 2020-08-30 00:00:00 96.9 F [facility] [place] Temperature Oral (F) 2020-08-29 11:26:00 97.6 F [facility] Height 2020-08-29 10:30:00 162.56 cm [facility] Weight 2020-08-29 10:30:00 [facility] [place] BMI Calculated 2020-08-29 10:30:00 Memori al [facility] Procedures Procedure Date / Time Performing Clinician Source Performed URINALYSIS 2022-05-10 19:36:00 Home Matthews [facility] TROPONIN I 2022-05-10 18:34:00 Home Matthews [facility] COMP. METABOLIC PANEL 2022-05-10 18:34:00 Home Matthews [facility] ([id number]) Medical Branch CBC WITH DIFF 2022-05-10 18:34:00 Home Matthews [facility] XR CHEST 2 VW 2022-05-10 17:24:58 Home Matthews [facility] CONSENT/REFUSAL FOR 2022-05-10 16:26:23 Doctor Unasseunice, [facility] DIAGNOSIS AND TREATMENT [facility] CONSENT/REFUSAL FOR 2022-05-10 16:26:09 Doctor Unasimone, [facility] DIAGNOSIS AND TREATMENT [facility] URINALYSIS 2022-05-08 22:43:00 Theresa Hickman [facility] XR CHEST 2 VW 2022-05-06 22:56:53 Anette Olea [facility] COMP. METABOLIC PANEL 2022-05-06 22:14:00 Anette Olea [facility] ([id number]) Medical Branch CBC WITH DIFF 2022-05-06 22:14:00 Anette Olea [facility] COVID-19 (ID NOW RAPID 2022-05-06 22:14:00 Anette Olea [facility] TESTING) Medical Branch BASIC METABOLIC PANEL (NA, 2022-04-22 21:23:00 Paulette Gray [facility] K, CL, CO2, GLUCOSE, BUN, Medica l Branch CREATININE, CA) CBC WITH DIFF 2022-04-22 21:23:00 Paulette Gray [facility] CONSENT/REFUSAL FOR 2022-04-22 19:45:46 Doctor Unasimone [facility] DIAGNOSIS AND TREATMENT [facility] SARS-COV-2 COVID-19 2022-03-05 16:09:27 [facility] DIMITRIS-SUCROSE VACCINE 12 [facility] Branch YRS+, BIVALENT 0.3ML, IM, (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) FLU 2022-03-05 16:09:27 [facility] VACC(),65+YR,0.5 Medica l Branch ML,IM,ADJUVANTED,QUAD(FLUA D) FLU 2022-03-05 16:09:27 [facility] [place] VACC(),65+YR,0.5 Medica l Branch ML,IM,ADJUVANTED,QUAD(FLUA D) SARS-COV-2 COVID-19 2022-03-05 16:09:27 [facility] DIMITRIS-SUCROSE VACCINE 12 Medical Branch YRS+, BIVALENT 0.3ML, IM, (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) MAGNESIUM 2022-02-15 09:41:00 Radha Sofia [facility] BASIC METABOLIC PANEL (NA, 2022-02-15 09:41:00 Radha Sofia [facility] K, CL, CO2, GLUCOSE, BUN, Medica l Branch CREATININE, CA) CBC WITH DIFF 2022-02-15 09:41:00 Radha Sofia [facility] N-TERMINAL PRO-BNP 2022-02-15 09:41:00 Sofia Garcia [facility] CBC WITH DIFF 2022-02-15 09:41:00 Radha Sofia [facility] BASIC METABOLIC PANEL (NA, 2022-02-15 09:41:00 Sofia Garcia [facility] K, CL, CO2, GLUCOSE, BUN, Medica l Branch CREATININE, CA) MAGNESIUM 2022-02-15 09:41:00 Radha [facility] N-TERMINAL PRO-BNP 2022-02-15 09:41:00 Sofia Garcia [facility] BASIC METABOLIC PANEL (NA, 2022-02-13 09:40:00 Sofia Garcia [facility] K, CL, CO2, GLUCOSE, BUN, Medica l Branch CREATININE, CA) CBC WITH DIFF 2022-02-13 09:40:00 Radha [facility] BASIC METABOLIC PANEL (NA, 2022-02-13 09:40:00 Radha Sofia [facility] K, CL, CO2, GLUCOSE, BUN, Medica l Branch CREATININE, CA) CBC WITH DIFF 2022-02-13 09:40:00 Radha Sofia [facility] TROPONIN I 2022-02-11 23:41:00 Sofia Garcia [facility] N-TERMINAL PRO-BNP 2022-02-11 23:41:00 Sofia [facility] TROPONIN I 2022-02-11 23:41[facility] 2022-02-11 23:41:00 Sofia [facility] HB ECG ROUTINE & RHYTHM 2022-02-11 22:15:36 Sofia Garcia Uni versity [facility] TRANSTHORACIC ECHO (TTE) 2022-02-11 21:26:50 [facility] (TTE) 2022-02-11 21:26:50 [facility] 2022-02-11 07:45:43 Reilly Means [facility] CT ABDOMEN PELVIS W 2022-02-11 07:45:43 Reilly Means [facility] RAPID INFLUENZA A/B 2022-02-11 06:54:00 Reilly Means [facility] RAPID INFLUENZA A/B 2022-02-11 06:54:00 Reilly Means [facility] URINALYSIS 2022-02-11 06:45:00 Reilly Means [facility] URINE CULTURE 2022-02-11 06:45:00 Reilly Means [facility] URINALYSIS 2022-02-11 06:45:00 Reilly Means [facility] URINE CULTURE 2022-02-11 06:45:00 Reilly Means [facility] HB ECG ROUTINE & RHYTHM 2022-02-11 05:22:08 Reilly Means [facility] HB ECG ROUTINE & RHYTHM 2022-02-11 05:22:08 Reilly Means [facility] BLOOD CULTURE SCREEN 2022-02-11 04:58:00 Reilly Means [facility] TROPONIN I 2022-02-11 04:58:00 Reilly Means [facility] COMP. METABOLIC PANEL 2022-02-11 04:58:00 Reilly Means [facility] ([id number]) Medical Branch CBC WITH DIFF 2022-02-11 04:58:00 Reilly Means [facility] PROTHROMBIN TIME / INR 2022-02-11 04:58:00 Reilly Means [facility] ACTIVATED PARTIAL THRMPLAS 2022-02-11 04:58:00 Reilly Means [facility] N-TERMINAL PRO-BNP 2022-02-11 04:58:00 Reilly Means [facility] LACTIC ACID WHOLE BLOOD 2022-02-11 04:58:00 Reilly Means [facility] COVID-19 (ID NOW RAPID 2022-02-11 04:58:00 Reilly Means [facility] TESTING) Medical Branch LAB ONLY COVID 2022-02-11 04:58:00 Reilly Means [facility] CBC WITH DIFF 2022-02-11 04:58:00 Reilly Means [facility] ACTIVATED PARTIAL THRMPLAS 2022-02-11 04:58:00 Reilly Means [facility] PROTHROMBIN TIME / INR 2022-02-11 04:58:00 Reilly Means [facility] COVID-19 (ID NOW RAPID 2022-02-11 04:58:00 Reilly Means [facility] TESTING) Medical Branch COMP. METABOLIC PANEL 2022-02-11 04:58:00 Reilly Means [facility] ([id number]) Medical Branch TROPONIN I 2022-02-11 04:58:00 Reilly Means [facility] N-TERMINAL PRO-BNP 2022-02-11 04:58:00 Reilly Means [facility] BLOOD CULTURE SCREEN 2022-02-11 04:58:00 Reilly Means [facility] LACTIC ACID WHOLE BLOOD 2022-02-11 04:58:00 Reilly Means [facility] LAB ONLY COVID 2022-02-11 04:58:00 Reilly Means [facility] XR CHEST 1 VW 2022-02-11 04:27:42 Reilly Means [facility] XR CHEST 1 VW 2022-02-11 04:27:42 [facility] HOSPITAL ADMISSION 2022-02-10 05:01:00 Doctor Unassigned, [facility] Name [facility] HOSPITAL ADMISSION 2022-02-10 05:01:00 Doctor Unassigned, [facility] ECG 12-LEAD 2021-07-14 15:14:00 Elan Lira [facility] [id number] 2021-06-17 00:00:00 RIKY CLARK [facility] GASTROINTESTINAL PANEL 2020-12-08 22:21:00 [facility] XR ABDOMEN 1 VW 2020-12-08 18:06:32 Eliseo Arce [facility] [place] < 1 HOUR 2020-09-05 22:39:00 Eliseo Arce [facility] SURGICAL PATHOLOGY REQUEST 2020-09-05 21:54:00 Eliseo Arce [facility] XR CHEST 1 VW PORTABLE 2020-09-05 19:55:00 Eliseo Arce [facility] DISCHARGE PATIENT 2020-09-05 17:27:55 Lucas Harris [facility] [place] AN ELECTIVE 2020-09-05 16:47:23 Kirit Flood [facility] ENDOTRACHEAL AIRWAY EGD, INTRAOPERATIVE 2020-09-05 16:27:00 [facility] 2020-09-05 15:04:00 Sarai Maharaj [facility] TIME (PTT) M. PROTHROMBIN TIME WITH INR 2020-09-05 15:04:00 Mindy Maharaj [facility] M. Plan of Care Planned Activity Planned Date Details Comments Source Future Scheduled 2022-11-11 Screening for [facility] Test 09:27:47 malignant neoplasm of colon (procedure) [code = 998117679] Future Scheduled 2022-11-11 Screening for [facility] Test 09:27:47 malignant neoplasm of colon (procedure) [code = 590115749] Future Scheduled 2022-11-11 Screening for [facility] Test 09:27:47 malignant neoplasm of colon (procedure) [code = 511058409] Future Scheduled 2022-11-11 SHINGLES VACCINES (1 Met [facility] Test 09:27:47 of 2) [code = SHINGLES VACCINES (1 of 2)] Future Scheduled 2022-11-11 BREAST CANCER [facility] Test 09:27:47 SCREENING [code = BREAST CANCER SCREENING] Future Scheduled 2022-11-11 Screening for [facility] Test 09:27:47 malignant neoplasm of colon (procedure) [code = 372015625] Future Scheduled 2022-11-11 Screening for [facility] Test 09:27:47 malignant neoplasm of colon (procedure) [code = 948188341] Future Scheduled 2022-11-11 HEPATITIS B VACCINES Met [facility] Test 09:27:47 (1 of 3 - Risk 3-dose series) [code = HEPATITIS B VACCINES (1 of 3 - Risk 3-dose series)] Future Scheduled 2022-11-11 COVID-19 VACCINE (3 - Me [facility] Test 09:27:47 Pfizer series) [code = COVID-19 VACCINE (3 - Pfizer series)] Future Scheduled 2022-11-11 65+ PNEUMOCOCCAL [facility] Test 09:27:47 VACCINE (4 - PPSV23 if available, else PCV20) [code = 65+ PNEUMOCOCCAL VACCINE (4 - PPSV23 if available, else PCV20)] Future Scheduled 2022-11-11 INFLUENZA VACCINE Method [facility] Test 09:27:47 [code = INFLUENZA VACCINE] Future Scheduled 2022-11-11 Screening for [facility] Test 09:27:47 malignant neoplasm of colon (procedure) [code = 112769810] Future Scheduled 2022-11-11 Screening for [facility] Test 09:27:47 malignant neoplasm of colon (procedure) [code = 362754619] Future Scheduled 2022-11-11 Screening for [facility] Test 09:27:47 malignant neoplasm of colon (procedure) [code = 236814474] Future Scheduled 2022-11-11 SHINGLES VACCINES (1 Met [facility] Test 09:27:47 of 2) [code = SHINGLES VACCINES (1 of 2)] Future Scheduled 2022-11-11 BREAST CANCER [facility] Test 09:27:47 SCREENING [code = BREAST CANCER SCREENING] Future Scheduled 2022-11-11 Screening for [facility] Test 09:27:47 malignant neoplasm of colon (procedure) [code = 787395698] Future Scheduled 2022-11-11 Screening for [facility] Test 09:27:47 malignant neoplasm of colon (procedure) [code = 400394716] Future Scheduled 2022-11-11 HEPATITIS B VACCINES [facility] Test 09:27:47 (1 of 3 - Risk 3-dose series) [code = HEPATITIS B VACCINES (1 of 3 - Risk 3-dose series)] Future Scheduled 2022-11-11 COVID-19 VACCINE (3 - Me [facility] Test 09:27:47 Pfizer series) [code = COVID-19 VACCINE (3 - Pfizer series)] Future Scheduled 2022-11-11 65+ PNEUMOCOCCAL [facility] Test 09:27:47 VACCINE (4 - PPSV23 if available, else PCV20) [code = 65+ PNEUMOCOCCAL VACCINE (4 - PPSV23 if available, else PCV20)] Future Scheduled 2022-11-11 INFLUENZA VACCINE Method [facility] Test 09:27:47 [code = INFLUENZA VACCINE] Future Scheduled 2022-10-27 Screening for [facility] Test 22:40:19 malignant neoplasm of colon (procedure) [code = 599736324] Future Scheduled 2022-10-27 Screening for [facility] Test 22:40:19 malignant neoplasm of colon (procedure) [code = 537720611] Future Scheduled 2022-10-27 Screening for [facility] Test 22:40:19 malignant neoplasm of colon (procedure) [code = 819737722] Future Scheduled 2022-10-27 SHINGLES VACCINES (1 Met [facility] Test 22:40:19 of 2) [code = SHINGLES VACCINES (1 of 2)] Future Scheduled 2022-10-27 BREAST CANCER [facility] Test 22:40:19 SCREENING [code = BREAST CANCER SCREENING] Future Scheduled 2022-10-27 Screening for [facility] Test 22:40:19 malignant neoplasm of colon (procedure) [code = 283556016] Future Scheduled 2022-10-27 Screening for [facility] Test 22:40:19 malignant neoplasm of colon (procedure) [code = 794071293] Future Scheduled 2022-10-27 HEPATITIS B VACCINES [facility] Test 22:40:19 (1 of 3 - Risk 3-dose series) [code = HEPATITIS B VACCINES (1 of 3 - Risk 3-dose series)] Future Scheduled 2022-10-27 COVID-19 VACCINE (3 - Me [facility] Test 22:40:19 Pfizer series) [code = COVID-19 VACCINE (3 - Pfizer series)] Future Scheduled 2022-10-27 65+ PNEUMOCOCCAL [facility] Test 22:40:19 VACCINE (4 - PPSV23 if available, else PCV20) [code = 65+ PNEUMOCOCCAL VACCINE (4 - PPSV23 if available, else PCV20)] Future Scheduled 2022-10-27 INFLUENZA VACCINE Method [facility] Test 22:40:19 [code = INFLUENZA VACCINE] Future Scheduled 2022-10-27 Screening for [facility] Test 22:40:19 malignant neoplasm of colon (procedure) [code = 410946425] Future Scheduled 2022-10-27 Screening for [facility] Test 22:40:19 malignant neoplasm of colon (procedure) [code = 036399388] Future Scheduled 2022-10-27 Screening for [facility] Test 22:40:19 malignant neoplasm of colon (procedure) [code = 003791937] Future Scheduled 2022-10-27 SHINGLES VACCINES (1 Met [facility] Test 22:40:19 of 2) [code = SHINGLES VACCINES (1 of 2)] Future Scheduled 2022-10-27 BREAST CANCER [facility] Test 22:40:19 SCREENING [code = BREAST CANCER SCREENING] Future Scheduled 2022-10-27 Screening for [facility] Test 22:40:19 malignant neoplasm of colon (procedure) [code = 063107231] Future Scheduled 2022-10-27 Screening for [facility] Test 22:40:19 malignant neoplasm of colon (procedure) [code = 698267578] Future Scheduled 2022-10-27 HEPATITIS B VACCINES [facility] Test 22:40:19 (1 of 3 - Risk 3-dose series) [code = HEPATITIS B VACCINES (1 of 3 - Risk 3-dose series)] Future Scheduled 2022-10-27 COVID-19 VACCINE (3 - [facility] Test 22:40:19 Pfizer series) [code = COVID-19 VACCINE (3 - Pfizer series)] Future Scheduled 2022-10-27 65+ PNEUMOCOCCAL [facility] Test 22:40:19 VACCINE (4 - PPSV23 if available, else PCV20) [code = 65+ PNEUMOCOCCAL VACCINE (4 - PPSV23 if available, else PCV20)] Future Scheduled 2022-10-27 INFLUENZA VACCINE Method [facility] Test 22:40:19 [code = INFLUENZA VACCINE] Future Scheduled 2022-09-10 SHINGLES VACCINES (1 Met [facility] Test 15:06:53 of 2) [code = SHINGLES VACCINES (1 of 2)] Future Scheduled 2022-09-10 BREAST CANCER [facility] Test 15:06:53 SCREENING [code = BREAST CANCER SCREENING] Future Scheduled 2022-09-10 COLONOSCOPY SCREENING [facility] Test 15:06:53 [code = COLONOSCOPY SCREENING] Future Scheduled 2022-09-10 HEPATITIS B VACCINES [facility] Test 15:06:53 (1 of 3 - Risk 3-dose series) [code = HEPATITIS B VACCINES (1 of 3 - Risk 3-dose series)] Future Scheduled 2022-09-10 COVID-19 VACCINE (3 - [facility] Test 15:06:53 Booster for Pfizer series) [code = COVID-19 VACCINE (3 - Booster for Pfizer series)] Future Scheduled 2022-09-10 65+ [facility]:06:53 VACCINE (4 - PPSV23 if available, else PCV20) [code = 65+ PNEUMOCOCCAL VACCINE (4 - PPSV23 if available, else PCV20)] Future Scheduled 2022-09-10 INFLUENZA VACCINE Method [facility] Test 15:06:53 [code = INFLUENZA VACCINE] Future Scheduled 2022-09-10 SHINGLES VACCINES (1 [facility] Test 15:06:53 of 2) [code = SHINGLES VACCINES (1 of 2)] Future Scheduled 2022-09-10 BREAST CANCER [facility] Test 15:06:53 SCREENING [code = BREAST CANCER SCREENING] Future Scheduled 2022-09-10 COLONOSCOPY SCREENING [facility] Test 15:06:53 [code = COLONOSCOPY SCREENING] Future Scheduled 2022-09-10 HEPATITIS B VACCINES [facility] Test 15:06:53 (1 of 3 - Risk 3-dose series) [code = HEPATITIS B VACCINES (1 of 3 - Risk 3-dose series)] Future Scheduled 2022-09-10 COVID-19 VACCINE (3 - [facility] Test 15:06:53 Booster for Pfizer series) [code = COVID-19 VACCINE (3 - Booster for Pfizer series)] Future Scheduled 2022-09-10 65+ PNEUMOCOCCAL [facility] Test 15:06:53 VACCINE (4 - PPSV23 if available, else PCV20) [code = 65+ PNEUMOCOCCAL VACCINE (4 - PPSV23 if available, else PCV20)] Future Scheduled 2022-09-10 INFLUENZA VACCINE Method [facility] Test 15:06:53 [code = INFLUENZA VACCINE] Future Scheduled 2022-09-10 SHINGLES VACCINES (1 [facility] Test 15:06:53 of 2) [code = SHINGLES VACCINES (1 of 2)] Future Scheduled 2022-09-10 BREAST CANCER [facility] Test 15:06:53 SCREENING [code = BREAST CANCER SCREENING] Future Scheduled 2022-09-10 COLONOSCOPY SCREENING [facility] Test 15:06:53 [code = COLONOSCOPY SCREENING] Future Scheduled 2022-09-10 HEPATITIS B VACCINES [facility] Test 15:06:53 (1 of 3 - Risk 3-dose series) [code = HEPATITIS B VACCINES (1 of 3 - Risk 3-dose series)] Future Scheduled 2022-09-10 COVID-19 VACCINE (3 - Me [facility] [place] [place] Test 15:06:53 Booster for Pfizer series) [code = COVID-19 VACCINE (3 - Booster for Pfizer series)] Future Scheduled 2022-09-10 65[facility] VACCINE (4 - PPSV23 if available, else PCV20) [code = 65+ PNEUMOCOCCAL VACCINE (4 - PPSV23 if available, else PCV20)] Future Scheduled 2022-09-10 INFLUENZA VACCINE Method [facility] Test 15:06:53 [code = INFLUENZA VACCINE] Future Scheduled 2022-09-10 SHINGLES VACCINES (1 [facility] Test 15:06:53 of 2) [code = SHINGLES VACCINES (1 of 2)] Future Scheduled 2022-09-10 BREAST CANCER [facility] Test 15:06:53 SCREENING [code = BREAST CANCER SCREENING] Future Scheduled 2022-09-10 COLONOSCOPY SCREENING [facility] Test 15:06:53 [code = COLONOSCOPY SCREENING] Future Scheduled 2022-09-10 HEPATITIS B VACCINES [facility] Test 15:06:53 (1 of 3 - Risk 3-dose series) [code = HEPATITIS B VACCINES (1 of 3 - Risk 3-dose series)] Future Scheduled 2022-09-10 COVID-19 VACCINE (3 - Me [facility] [place] [place] Test 15:06:53 Booster for Pfizer series) [code = COVID-19 VACCINE (3 - Booster for Pfizer series)] Future Scheduled 2022-09-10 65+ PNEUMOCOCCAL [facility] Test 15:06:53 VACCINE (4 - PPSV23 if available, else PCV20) [code = 65+ PNEUMOCOCCAL VACCINE (4 - PPSV23 if available, else PCV20)] Future Scheduled 2022-09-10 INFLUENZA VACCINE Method [facility] Test 15:06:53 [code = INFLUENZA VACCINE] Future Scheduled 2022-09-10 SHINGLES VACCINES (1 [facility] Test 15:06:53 of 2) [code = SHINGLES VACCINES (1 of 2)] Future Scheduled 2022-09-10 BREAST CANCER [facility] Test 15:06:53 SCREENING [code = BREAST CANCER SCREENING] Future Scheduled 2022-09-10 COLONOSCOPY SCREENING [facility] Test 15:06:53 [code = COLONOSCOPY SCREENING] Future Scheduled 2022-09-10 HEPATITIS B VACCINES [facility] Test 15:06:53 (1 of 3 - Risk 3-dose series) [code = HEPATITIS B VACCINES (1 of 3 - Risk 3-dose series)] Future Scheduled 2022-09-10 COVID-19 VACCINE (3 - [facility] Test 15:06:53 Booster for Pfizer series) [code = COVID-19 VACCINE (3 - Booster for Pfizer series)] Future Scheduled 2022-09-10 65[facility] VACCINE (4 - PPSV23 if available, else PCV20) [code = 65+ PNEUMOCOCCAL VACCINE (4 - PPSV23 if available, else PCV20)] Future Scheduled 2022-09-10 INFLUENZA VACCINE Method [facility] Test 15:06:53 [code = INFLUENZA VACCINE] Future Scheduled 2022-09-10 SHINGLES VACCINES (1 [facility] Test 15:06:53 of 2) [code = SHINGLES VACCINES (1 of 2)] Future Scheduled 2022-09-10 BREAST CANCER [facility] Test 15:06:53 SCREENING [code = BREAST CANCER SCREENING] Future Scheduled 2022-09-10 COLONOSCOPY SCREENING [facility] Test 15:06:53 [code = COLONOSCOPY SCREENING] Future Scheduled 2022-09-10 HEPATITIS B VACCINES [facility] Test 15:06:53 (1 of 3 - Risk 3-dose series) [code = HEPATITIS B VACCINES (1 of 3 - Risk 3-dose series)] Future Scheduled 2022-09-10 COVID-19 VACCINE (3 - Me [facility] [place] [place] Test 15:06:53 Booster for Pfizer series) [code = COVID-19 VACCINE (3 - Booster for Pfizer series)] Future Scheduled 2022-09-10 65+ [facility]:06:[facility] VACCINE (4 - PPSV23 if available, else PCV20) [code = 65+ PNEUMOCOCCAL VACCINE (4 - PPSV23 if available, else PCV20)] Future Scheduled 2022-09-10 INFLUENZA VACCINE Method [facility] Test 15:06:53 [code = INFLUENZA VACCINE] Future Scheduled 2022-09-10 SHINGLES VACCINES (1 [facility] Test 15:06:53 of 2) [code = SHINGLES VACCINES (1 of 2)] Future Scheduled 2022-09-10 BREAST CANCER [facility] Test 15:06:53 SCREENING [code = BREAST CANCER SCREENING] Future Scheduled 2022-09-10 COLONOSCOPY SCREENING [facility] Test 15:06:53 [code = COLONOSCOPY SCREENING] Future Scheduled 2022-09-10 HEPATITIS B VACCINES [facility] Test 15:06:53 (1 of 3 - Risk 3-dose series) [code = HEPATITIS B VACCINES (1 of 3 - Risk 3-dose series)] Future Scheduled 2022-09-10 COVID-19 VACCINE (3 - Me [facility] Test 15:06:53 Booster for Pfizer series) [code = COVID-19 VACCINE (3 - Booster for Pfizer series)] Future Scheduled 2022-09-10 65+ [facility] 15:06:[facility] VACCINE (4 - PPSV23 if available, else PCV20) [code = 65+ PNEUMOCOCCAL VACCINE (4 - PPSV23 if available, else PCV20)] Future Scheduled 2022-09-10 INFLUENZA VACCINE Method [facility] Test 15:06:53 [code = INFLUENZA VACCINE] Future Scheduled 2022-09-10 SHINGLES VACCINES (1 [facility] Test 15:06:53 of 2) [code = SHINGLES VACCINES (1 of 2)] Future Scheduled 2022-09-10 BREAST CANCER [facility] Test 15:06:53 SCREENING [code = BREAST CANCER SCREENING] Future Scheduled 2022-09-10 COLONOSCOPY SCREENING [facility] Test 15:06:53 [code = COLONOSCOPY SCREENING] Future Scheduled 2022-09-10 HEPATITIS B VACCINES [facility] Test 15:06:53 (1 of 3 - Risk 3-dose series) [code = HEPATITIS B VACCINES (1 of 3 - Risk 3-dose series)] Future Scheduled 2022-09-10 COVID-19 VACCINE (3 - [facility] Test 15:06:53 Booster for Pfizer series) [code = COVID-19 VACCINE (3 - Booster for Pfizer series)] Future Scheduled 2022-09-10 65+ PNEUMOCOCCAL [facility] Test 15:06:53 VACCINE (4 - PPSV23 if available, else PCV20) [code = 65+ PNEUMOCOCCAL VACCINE (4 - PPSV23 if available, else PCV20)] Future Scheduled 2022-09-10 INFLUENZA VACCINE Method [facility] Test 15:06:53 [code = INFLUENZA VACCINE] Future Scheduled 2022-08-26 SHINGLES VACCINES (1 [facility] Test 14:43:48 of 2) [code = SHINGLES VACCINES (1 of 2)] Future Scheduled 2022-08-26 BREAST CANCER [facility] Test 14:43:48 SCREENING [code = BREAST CANCER SCREENING] Future Scheduled 2022-08-26 COLONOSCOPY SCREENING [facility] Test 14:43:48 [code = COLONOSCOPY SCREENING] Future Scheduled 2022-08-26 HEPATITIS B VACCINES [facility] Test 14:43:48 (1 of 3 - Risk 3-dose series) [code = HEPATITIS B VACCINES (1 of 3 - Risk 3-dose series)] Future Scheduled 2022-08-26 COVID-19 VACCINE (3 - [facility] Test 14:43:48 Booster for Pfizer series) [code = COVID-19 VACCINE (3 - Booster for Pfizer series)] Future Scheduled 2022-08-26 65[facility] 14:[facility] VACCINE (4 - PPSV23 if available, else PCV20) [code = 65+ PNEUMOCOCCAL VACCINE (4 - PPSV23 if available, else PCV20)] Future Scheduled 2022-08-26 INFLUENZA VACCINE Method [facility] Test 14:43:48 [code = INFLUENZA VACCINE] Future Scheduled 2022-08-07 SHINGLES VACCINES (1 [facility] Test 23:30:11 of 2) [code = SHINGLES VACCINES (1 of 2)] Future Scheduled 2022-08-07 BREAST CANCER [facility] Test 23:30:11 SCREENING [code = BREAST CANCER SCREENING] Future Scheduled 2022-08-07 COLONOSCOPY SCREENING [facility] Test 23:30:11 [code = COLONOSCOPY SCREENING] Future Scheduled 2022-08-07 HEPATITIS B VACCINES [facility] Test 23:30:11 (1 of 3 - Risk 3-dose series) [code = HEPATITIS B VACCINES (1 of 3 - Risk 3-dose series)] Future Scheduled 2022-08-07 COVID-19 VACCINE (3 - [facility] Test 23:30:11 Booster for Pfizer series) [code = COVID-19 VACCINE (3 - Booster for Pfizer series)] Future Scheduled 2022-08-07 65[facility]:30:11 VACCINE (4 - PPSV23 if available, else PCV20) [code = 65+ PNEUMOCOCCAL VACCINE (4 - PPSV23 if available, else PCV20)] Future Scheduled 2022-08-07 INFLUENZA VACCINE Method [facility] Test 23:30:11 [code = INFLUENZA VACCINE] Future Scheduled 2022-08-07 SHINGLES VACCINES (1 [facility] Test 23:30:11 of 2) [code = SHINGLES VACCINES (1 of 2)] Future Scheduled 2022-08-07 BREAST CANCER [facility] Test 23:30:11 SCREENING [code = BREAST CANCER SCREENING] Future Scheduled 2022-08-07 COLONOSCOPY SCREENING [facility] Test 23:30:11 [code = COLONOSCOPY SCREENING] Future Scheduled 2022-08-07 HEPATITIS B VACCINES [facility] Test 23:30:11 (1 of 3 - Risk 3-dose series) [code = HEPATITIS B VACCINES (1 of 3 - Risk 3-dose series)] Future Scheduled 2022-08-07 COVID-19 VACCINE (3 - Me [facility] [place] [place] Test 23:30:11 Booster for Pfizer series) [code = COVID-19 VACCINE (3 - Booster for Pfizer series)] Future Scheduled 2022-08-07 65+ PNEUMOCOCCAL [facility] Test 23:30:11 VACCINE (4 - PPSV23 if available, else PCV20) [code = 65+ PNEUMOCOCCAL VACCINE (4 - PPSV23 if available, else PCV20)] Future Scheduled 2022-08-07 INFLUENZA VACCINE Method [facility] Test 23:30:11 [code = INFLUENZA VACCINE] Future Scheduled 2022-08-06 SHINGLES VACCINES (1 [facility] Test 15:48:02 of 2) [code = SHINGLES VACCINES (1 of 2)] Future Scheduled 2022-08-06 BREAST CANCER [facility] Test 15:48:02 SCREENING [code = BREAST CANCER SCREENING] Future Scheduled 2022-08-06 COLONOSCOPY SCREENING [facility] Test 15:48:02 [code = COLONOSCOPY SCREENING] Future Scheduled 2022-08-06 HEPATITIS B VACCINES [facility] Test 15:48:02 (1 of 3 - Risk 3-dose series) [code = HEPATITIS B VACCINES (1 of 3 - Risk 3-dose series)] Future Scheduled 2022-08-06 COVID-19 VACCINE (3 - [facility] Test 15:48:02 Booster for Pfizer series) [code = COVID-19 VACCINE (3 - Booster for Pfizer series)] Future Scheduled 2022-08-06 65[facility]:02 VACCINE (4 - PPSV23 if available, else PCV20) [code = 65+ PNEUMOCOCCAL VACCINE (4 - PPSV23 if available, else PCV20)] Future Scheduled 2022-08-06 INFLUENZA VACCINE Method [facility] Test 15:48:02 [code = INFLUENZA VACCINE] Future Scheduled 2022-06-11 SHINGLES VACCINES (1 [facility] Test 16:10:12 of 2) [code = SHINGLES VACCINES (1 of 2)] Future Scheduled 2022-06-11 BREAST CANCER [facility] Test 16:10:12 SCREENING [code = BREAST CANCER SCREENING] Future Scheduled 2022-06-11 COLONOSCOPY SCREENING [facility] Test 16:10:12 [code = COLONOSCOPY SCREENING] Future Scheduled 2022-06-11 HEPATITIS B VACCINES [facility] Test 16:10:12 (1 of 3 - Risk 3-dose series) [code = HEPATITIS B VACCINES (1 of 3 - Risk 3-dose series)] Future Scheduled 2022-06-11 COVID-19 VACCINE (3 - Me [facility] Test 16:10:12 Booster for Pfizer series) [code = COVID-19 VACCINE (3 - Booster for Pfizer series)] Future Scheduled 2022-06-11 65[facility] 16:10:12 VACCINE (4 - PPSV23 if available, else PCV20) [code = 65+ PNEUMOCOCCAL VACCINE (4 - PPSV23 if available, else PCV20)] Future Scheduled 2022-06-11 INFLUENZA VACCINE Method [facility] Test 16:10:12 [code = INFLUENZA VACCINE] Future Scheduled 2022-06-11 SHINGLES VACCINES (1 [facility] Test 16:10:12 of 2) [code = SHINGLES VACCINES (1 of 2)] Future Scheduled 2022-06-11 BREAST CANCER [facility] Test 16:10:12 SCREENING [code = BREAST CANCER SCREENING] Future Scheduled 2022-06-11 COLONOSCOPY SCREENING [facility] Test 16:10:12 [code = COLONOSCOPY SCREENING] Future Scheduled 2022-06-11 HEPATITIS B VACCINES [facility] Test 16:10:12 (1 of 3 - Risk 3-dose series) [code = HEPATITIS B VACCINES (1 of 3 - Risk 3-dose series)] Future Scheduled 2022-06-11 COVID-19 VACCINE (3 - Me [facility] Test 16:10:12 Booster for Pfizer series) [code = COVID-19 VACCINE (3 - Booster for Pfizer series)] Future Scheduled 2022-06-11 65[facility] 16:10:12 VACCINE (4 - PPSV23 if available, else PCV20) [code = 65+ PNEUMOCOCCAL VACCINE (4 - PPSV23 if available, else PCV20)] Future Scheduled 2022-06-11 INFLUENZA VACCINE Method [facility] Test 16:10:12 [code = INFLUENZA VACCINE] Future Scheduled 2022-06-11 SHINGLES VACCINES (1 [facility] Test 16:10:12 of 2) [code = SHINGLES VACCINES (1 of 2)] Future Scheduled 2022-06-11 BREAST CANCER [facility] Test 16:10:12 SCREENING [code = BREAST CANCER SCREENING] Future Scheduled 2022-06-11 COLONOSCOPY SCREENING [facility] Test 16:10:12 [code = COLONOSCOPY SCREENING] Future Scheduled 2022-06-11 HEPATITIS B VACCINES [facility] Test 16:10:12 (1 of 3 - Risk 3-dose series) [code = HEPATITIS B VACCINES (1 of 3 - Risk 3-dose series)] Future Scheduled 2022-06-11 COVID-19 VACCINE (3 - Me [facility] Test 16:10:12 Booster for Pfizer series) [code = COVID-19 VACCINE (3 - Booster for Pfizer series)] Future Scheduled 2022-06-11 65[facility]:10:12 VACCINE (4 - PPSV23 if available, else PCV20) [code = 65+ PNEUMOCOCCAL VACCINE (4 - PPSV23 if available, else PCV20)] Future Scheduled 2022-06-11 INFLUENZA VACCINE Method [facility] Test 16:10:12 [code = INFLUENZA VACCINE] Future Scheduled 2022-06-11 SHINGLES VACCINES (1 [facility] Test 16:10:12 of 2) [code = SHINGLES VACCINES (1 of 2)] Future Scheduled 2022-06-11 BREAST CANCER [facility] Test 16:10:12 SCREENING [code = BREAST CANCER SCREENING] Future Scheduled 2022-06-11 COLONOSCOPY SCREENING [facility] Test 16:10:12 [code = COLONOSCOPY SCREENING] Future Scheduled 2022-06-11 HEPATITIS B VACCINES [facility] Test 16:10:12 (1 of 3 - Risk 3-dose series) [code = HEPATITIS B VACCINES (1 of 3 - Risk 3-dose series)] Future Scheduled 2022-06-11 COVID-19 VACCINE (3 - Me [facility] Test 16:10:12 Booster for Pfizer series) [code = COVID-19 VACCINE (3 - Booster for Pfizer series)] Future Scheduled 2022-06-11 65+ [facility] 16:10:12 VACCINE (4 - PPSV23 if available, else PCV20) [code = 65+ PNEUMOCOCCAL VACCINE (4 - PPSV23 if available, else PCV20)] Future Scheduled 2022-06-11 INFLUENZA VACCINE Method [facility] Test 16:10:12 [code = INFLUENZA VACCINE] Future Scheduled 2022-06-11 SHINGLES VACCINES (1 [facility] Test 16:10:12 of 2) [code = SHINGLES VACCINES (1 of 2)] Future Scheduled 2022-06-11 BREAST CANCER [facility] Test 16:10:12 SCREENING [code = BREAST CANCER SCREENING] Future Scheduled 2022-06-11 COLONOSCOPY SCREENING [facility] Test 16:10:12 [code = COLONOSCOPY SCREENING] Future Scheduled 2022-06-11 HEPATITIS B VACCINES [facility] Test 16:10:12 (1 of 3 - Risk 3-dose series) [code = HEPATITIS B VACCINES (1 of 3 - Risk 3-dose series)] Future Scheduled 2022-06-11 COVID-19 VACCINE (3 - Me [facility] Test 16:10:12 Booster for Pfizer series) [code = COVID-19 VACCINE (3 - Booster for Pfizer series)] Future Scheduled 2022-06-11 65+ [facility] 16:10:12 VACCINE (4 - PPSV23 if available, else PCV20) [code = 65+ PNEUMOCOCCAL VACCINE (4 - PPSV23 if available, else PCV20)] Future Scheduled 2022-06-11 INFLUENZA VACCINE Method [facility] Test 16:10:12 [code = INFLUENZA VACCINE] Future Scheduled 2022-06-11 SHINGLES VACCINES (1 [facility] Test 16:10:12 of 2) [code = SHINGLES VACCINES (1 of 2)] Future Scheduled 2022-06-11 BREAST CANCER [facility] Test 16:10:12 SCREENING [code = BREAST CANCER SCREENING] Future Scheduled 2022-06-11 COLONOSCOPY SCREENING [facility] Test 16:10:12 [code = COLONOSCOPY SCREENING] Future Scheduled 2022-06-11 HEPATITIS B VACCINES [facility] Test 16:10:12 (1 of 3 - Risk 3-dose series) [code = HEPATITIS B VACCINES (1 of 3 - Risk 3-dose series)] Future Scheduled 2022-06-11 COVID-19 VACCINE (3 - Me [facility] Test 16:10:12 Booster for Pfizer series) [code = COVID-19 VACCINE (3 - Booster for Pfizer series)] Future Scheduled 2022-06-11 65+ [facility] 16:10:12 VACCINE (4 - PPSV23 if available, else PCV20) [code = 65+ PNEUMOCOCCAL VACCINE (4 - PPSV23 if available, else PCV20)] Future Scheduled 2022-06-11 [facility] 16:10:12 [code = INFLUENZA VACCINE] Future Scheduled 2022-06-11 SHINGLES VACCINES (1 [facility] Test 16:10:12 of 2) [code = SHINGLES VACCINES (1 of 2)] Future Scheduled 2022-06-11 BREAST CANCER [facility] Test 16:10:12 SCREENING [code = BREAST CANCER SCREENING] Future Scheduled 2022-06-11 COLONOSCOPY SCREENING [facility] Test 16:10:12 [code = COLONOSCOPY SCREENING] Future Scheduled 2022-06-11 HEPATITIS B VACCINES [facility] Test 16:10:12 (1 of 3 - Risk 3-dose series) [code = HEPATITIS B VACCINES (1 of 3 - Risk 3-dose series)] Future Scheduled 2022-06-11 COVID-19 VACCINE (3 - [facility] Test 16:10:12 Booster for Pfizer series) [code = COVID-19 VACCINE (3 - Booster for Pfizer series)] Future Scheduled 2022-06-11 65[facility] 16:10:12 VACCINE (4 - PPSV23 if available, else PCV20) [code = 65+ PNEUMOCOCCAL VACCINE (4 - PPSV23 if available, else PCV20)] Future Scheduled 2022-06-11 INFLUENZA VACCINE [facility] Test 16:10:12 [code = INFLUENZA VACCINE] Future Scheduled 2022-06-11 SHINGLES VACCINES (1 [facility] Test 16:10:12 of 2) [code = SHINGLES VACCINES (1 of 2)] Future Scheduled 2022-06-11 BREAST CANCER [facility] Test 16:10:12 SCREENING [code = BREAST CANCER SCREENING] Future Scheduled 2022-06-11 COLONOSCOPY SCREENING [facility] Test 16:10:12 [code = COLONOSCOPY SCREENING] Future Scheduled 2022-06-11 HEPATITIS B VACCINES [facility] Test 16:10:12 (1 of 3 - Risk 3-dose series) [code = HEPATITIS B VACCINES (1 of 3 - Risk 3-dose series)] Future Scheduled 2022-06-11 COVID-19 VACCINE (3 - [facility] Test 16:10:12 Booster for Pfizer series) [code = COVID-19 VACCINE (3 - Booster for Pfizer series)] Future Scheduled 2022-06-11 65[facility] 16:10:12 VACCINE (4 - PPSV23 if available, else PCV20) [code = 65+ PNEUMOCOCCAL VACCINE (4 - PPSV23 if available, else PCV20)] Future Scheduled 2022-06-11 INFLUENZA VACCINE [facility] Test 16:10:12 [code = INFLUENZA VACCINE] Future Scheduled 2022-06-11 SHINGLES VACCINES (1 [facility] Test 16:10:12 of 2) [code = SHINGLES VACCINES (1 of 2)] Future Scheduled 2022-06-11 BREAST CANCER [facility] Test 16:10:12 SCREENING [code = BREAST CANCER SCREENING] Future Scheduled 2022-06-11 COLONOSCOPY SCREENING [facility] Test 16:10:12 [code = COLONOSCOPY SCREENING] Future Scheduled 2022-06-11 HEPATITIS B VACCINES [facility] Test 16:10:12 (1 of 3 - Risk 3-dose series) [code = HEPATITIS B VACCINES (1 of 3 - Risk 3-dose series)] Future Scheduled 2022-06-11 COVID-19 VACCINE (3 - [facility] Test 16:10:12 Booster for Pfizer series) [code = COVID-19 VACCINE (3 - Booster for Pfizer series)] Future Scheduled 2022-06-11 65+ [facility] 16:10:12 VACCINE (4 - PPSV23 if available, else PCV20) [code = 65+ PNEUMOCOCCAL VACCINE (4 - PPSV23 if available, else PCV20)] Future Scheduled 2022-06-11 INFLUENZA VACCINE [facility] Test 16:10:12 [code = INFLUENZA VACCINE] Future Scheduled 2022-05-10 SHINGLES VACCINES (1 [facility] Test 10:21:35 of 2) [code = SHINGLES VACCINES (1 of 2)] Future Scheduled 2022-05-10 BREAST CANCER [facility] Test 10:21:35 SCREENING [code = BREAST CANCER SCREENING] Future Scheduled 2022-05-10 COLONOSCOPY SCREENING [facility] Test 10:21:35 [code = COLONOSCOPY SCREENING] Future Scheduled 2022-05-10 HEPATITIS B VACCINES [facility] Test 10:21:35 (1 of 3 - Risk 3-dose series) [code = HEPATITIS B VACCINES (1 of 3 - Risk 3-dose series)] Future Scheduled 2022-05-10 COVID-19 VACCINE (3 - [facility] Test 10:21:35 Booster for Pfizer series) [code = COVID-19 VACCINE (3 - Booster for Pfizer series)] Future Scheduled 2022-05-10 65[facility] 10:21:35 VACCINE (4 - PPSV23 if available, else PCV20) [code = 65+ PNEUMOCOCCAL VACCINE (4 - PPSV23 if available, else PCV20)] Future Scheduled 2022-05-10 INFLUENZA VACCINE [facility] Test 10:21:35 [code = INFLUENZA VACCINE] Future Scheduled 2022-05-10 SHINGLES VACCINES (1 [facility] Test 10:21:35 of 2) [code = SHINGLES VACCINES (1 of 2)] Future Scheduled 2022-05-10 BREAST CANCER [facility] Test 10:21:35 SCREENING [code = BREAST CANCER SCREENING] Future Scheduled 2022-05-10 COLONOSCOPY SCREENING [facility] Test 10:21:35 [code = COLONOSCOPY SCREENING] Future Scheduled 2022-05-10 HEPATITIS B VACCINES [facility] [facility] Test 10:21:35 (1 of 3 - Risk 3-dose series) [code = HEPATITIS B VACCINES (1 of 3 - Risk 3-dose series)] Future Scheduled 2022-05-10 COVID-19 VACCINE (3 - Me [facility] [place] [place] Test 10:21:35 Booster for Pfizer series) [code = COVID-19 VACCINE (3 - Booster for Pfizer series)] Future Scheduled 2022-05-10 65[facility] VACCINE (4 - PPSV23 if available, else PCV20) [code = 65+ PNEUMOCOCCAL VACCINE (4 - PPSV23 if available, else PCV20)] Future Scheduled 2022-05-10 INFLUENZA VACCINE Method [facility] Test 10:21:35 [code = INFLUENZA VACCINE] Future Scheduled 2022-05-06 SHINGLES VACCINES (1 Met [facility] Test 14:03:13 of 2) [code = SHINGLES VACCINES (1 of 2)] Future Scheduled 2022-05-06 BREAST CANCER [facility] Test 14:03:13 SCREENING [code = BREAST CANCER SCREENING] Future Scheduled 2022-05-06 COLONOSCOPY SCREENING [facility] Test 14:03:13 [code = COLONOSCOPY SCREENING] Future Scheduled 2022-05-06 HEPATITIS B VACCINES Met [facility] Test 14:03:13 (1 of 3 - Risk 3-dose series) [code = HEPATITIS B VACCINES (1 of 3 - Risk 3-dose series)] Future Scheduled 2022-05-06 COVID-19 VACCINE (3 - [facility] Test 14:03:13 Booster for Pfizer series) [code = COVID-19 VACCINE (3 - Booster for Pfizer series)] Future Scheduled 2022-05-06 65+ PNEUMOCOCCAL [facility] Test 14:03:13 VACCINE (4 - PPSV23 if available, else PCV20) [code = 65+ PNEUMOCOCCAL VACCINE (4 - PPSV23 if available, else PCV20)] Future Scheduled 2022-05-06 INFLUENZA VACCINE Method [facility] Test 14:03:13 [code = INFLUENZA VACCINE] Future Scheduled 2022-04-30 SHINGLES VACCINES (1 Met [facility] Test 01:07:32 of 2) [code = SHINGLES VACCINES (1 of 2)] Future Scheduled 2022-04-30 BREAST CANCER [facility] Test 01:07:32 SCREENING [code = BREAST CANCER SCREENING] Future Scheduled 2022-04-30 COLONOSCOPY SCREENING [facility] Test 01:07:32 [code = COLONOSCOPY SCREENING] Future Scheduled 2022-04-30 HEPATITIS B VACCINES Met [facility] Test 01:07:32 (1 of 3 - Risk 3-dose series) [code = HEPATITIS B VACCINES (1 of 3 - Risk 3-dose series)] Future Scheduled 2022-04-30 COVID-19 VACCINE (3 - [facility] Test 01:07:32 Booster for Pfizer series) [code = COVID-19 VACCINE (3 - Booster for Pfizer series)] Future Scheduled 2022-04-30 65+ PNEUMOCOCCAL [facility] Test 01:07:32 VACCINE (4 - PPSV23 if available, else PCV20) [code = 65+ PNEUMOCOCCAL VACCINE (4 - PPSV23 if available, else PCV20)] Future Scheduled 2022-04-30 INFLUENZA VACCINE Method [facility] Test 01:07:32 [code = INFLUENZA VACCINE] Future Scheduled 2022-04-30 SHINGLES VACCINES (1 Met [facility] Test 01:07:32 of 2) [code = SHINGLES VACCINES (1 of 2)] Future Scheduled 2022-04-30 BREAST CANCER [facility] Test 01:07:32 SCREENING [code = BREAST CANCER SCREENING] Future Scheduled 2022-04-30 COLONOSCOPY SCREENING [facility] Test 01:07:32 [code = COLONOSCOPY SCREENING] Future Scheduled 2022-04-30 HEPATITIS B VACCINES Met [facility] Test 01:07:32 (1 of 3 - Risk 3-dose series) [code = HEPATITIS B VACCINES (1 of 3 - Risk 3-dose series)] Future Scheduled 2022-04-30 COVID-19 VACCINE (3 - Me [facility] [place] [place] Test 01:07:32 Booster for Pfizer series) [code = COVID-19 VACCINE (3 - Booster for Pfizer series)] Future Scheduled 2022-04-30 65[facility] 01:07:32 VACCINE (4 - PPSV23 if available, else PCV20) [code = 65+ PNEUMOCOCCAL VACCINE (4 - PPSV23 if available, else PCV20)] Future Scheduled 2022-04-30 INFLUENZA VACCINE Method [facility] Test 01:07:32 [code = INFLUENZA VACCINE] Future Scheduled 2022-04-30 SHINGLES VACCINES (1 Met [facility] Test 01:07:32 of 2) [code = SHINGLES VACCINES (1 of 2)] Future Scheduled 2022-04-30 BREAST CANCER [facility] Test 01:07:32 SCREENING [code = BREAST CANCER SCREENING] Future Scheduled 2022-04-30 COLONOSCOPY SCREENING [facility] Test 01:07:32 [code = COLONOSCOPY SCREENING] Future Scheduled 2022-04-30 HEPATITIS B VACCINES Met [facility] Test 01:07:32 (1 of 3 - Risk 3-dose series) [code = HEPATITIS B VACCINES (1 of 3 - Risk 3-dose series)] Future Scheduled 2022-04-30 COVID-19 VACCINE (3 - [facility] Test 01:07:32 Booster for Pfizer series) [code = COVID-19 VACCINE (3 - Booster for Pfizer series)] Future Scheduled 2022-04-30 65[facility] 01:07:32 VACCINE (4 - PPSV23 if available, else PCV20) [code = 65+ PNEUMOCOCCAL VACCINE (4 - PPSV23 if available, else PCV20)] Future Scheduled 2022-04-30 INFLUENZA VACCINE Method [facility] Test 01:07:32 [code = INFLUENZA VACCINE] Future Scheduled 2022-04-25 SHINGLES VACCINES (1 Met [facility] Test 01:45:02 of 2) [code = SHINGLES VACCINES (1 of 2)] Future Scheduled 2022-04-25 BREAST CANCER [facility] Test 01:45:02 SCREENING [code = BREAST CANCER SCREENING] Future Scheduled 2022-04-25 COLONOSCOPY SCREENING [facility] Test 01:45:02 [code = COLONOSCOPY SCREENING] Future Scheduled 2022-04-25 HEPATITIS B VACCINES Met [facility] Test 01:45:02 (1 of 3 - Risk 3-dose series) [code = HEPATITIS B VACCINES (1 of 3 - Risk 3-dose series)] Future Scheduled 2022-04-25 COVID-19 VACCINE (3 - [facility] Test 01:45:02 Booster for Pfizer series) [code = COVID-19 VACCINE (3 - Booster for Pfizer series)] Future Scheduled 2022-04-25 65+ PNEUMOCOCCAL [facility] Test 01:45:02 VACCINE (4 - PPSV23 if available, else PCV20) [code = 65+ PNEUMOCOCCAL VACCINE (4 - PPSV23 if available, else PCV20)] Future Scheduled 2022-04-25 INFLUENZA VACCINE Method [facility] Test 01:45:02 [code = INFLUENZA VACCINE] Future Scheduled 2022-03-25 SHINGLES VACCINES (1 Met [facility] Test 14:48:42 of 2) [code = SHINGLES VACCINES (1 of 2)] Future Scheduled 2022-03-25 BREAST CANCER [facility] Test 14:48:42 SCREENING [code = BREAST CANCER SCREENING] Future Scheduled 2022-03-25 COLONOSCOPY SCREENING [facility] Test 14:48:42 [code = COLONOSCOPY SCREENING] Future Scheduled 2022-03-25 HEPATITIS B VACCINES Met [facility] Test 14:48:42 (1 of 3 - Risk 3-dose series) [code = HEPATITIS B VACCINES (1 of 3 - Risk 3-dose series)] Future Scheduled 2022-03-25 COVID-19 VACCINE (3 - [facility] Test 14:48:42 Booster for Pfizer series) [code = COVID-19 VACCINE (3 - Booster for Pfizer series)] Future Scheduled 2022-03-25 65[facility] 14:48:42 VACCINE (4 - [...] of 2)] Future Scheduled 2022-03-25 BREAST CANCER [facility] Test 14:48:42 SCREENING [code = BREAST CANCER SCREENING] Future Scheduled 2022-03-25 COLONOSCOPY SCREENING [facility] Test 14:48:42 [code = COLONOSCOPY SCREENING] Future Scheduled 2022-03-25 HEPATITIS B VACCINES Met [facility] Test 14:48:42 (1 of 3 - Risk 3-dose series) [code = HEPATITIS B VACCINES (1 of 3 - Risk 3-dose series)] Future Scheduled 2022-03-25 COVID-19 VACCINE (3 - [facility] Test 14:48:42 Booster for Pfizer series) [code = COVID-19 VACCINE (3 - Booster for Pfizer series)] Future Scheduled 2022-03-25 65[facility] 14:48:42 VACCINE (4 - [...] of 2)] Future Scheduled 2022-03-25 BREAST CANCER [facility] Test 14:48:42 SCREENING [code = BREAST CANCER SCREENING] Future Scheduled 2022-03-25 COLONOSCOPY SCREENING [facility] Test 14:48:42 [code = COLONOSCOPY SCREENING] Future Scheduled 2022-03-25 HEPATITIS B VACCINES Met [facility] Test 14:48:42 (1 of 3 - Risk 3-dose series) [code = HEPATITIS B VACCINES (1 of 3 - Risk 3-dose series)] Future Scheduled 2022-03-25 COVID-19 VACCINE (3 - Me [facility] [place] [place] Test 14:48:42 Booster for Pfizer series) [code = COVID-19 VACCINE (3 - Booster for Pfizer series)] Future Scheduled 2022-03-25 65+ PNEUMOCOCCAL [facility] Test 14:48:42 VACCINE (4 - PPSV23 if available, else PCV20) [code = 65+ PNEUMOCOCCAL VACCINE (4 - PPSV23 if available, else PCV20)] Future Scheduled 2022-03-25 INFLUENZA VACCINE Method [facility] Test 14:48:42 [code = INFLUENZA VACCINE] Future Scheduled 2022-03-25 SHINGLES VACCINES (1 Met [facility] Test 14:48:42 of 2) [code = SHINGLES VACCINES (1 of 2)] Future Scheduled 2022-03-25 BREAST CANCER [facility] Test 14:48:42 SCREENING [code = BREAST CANCER SCREENING] Future Scheduled 2022-03-25 COLONOSCOPY SCREENING [facility] Test 14:48:42 [code = COLONOSCOPY SCREENING] Future Scheduled 2022-03-25 HEPATITIS B VACCINES Met [facility] Test 14:48:42 (1 of 3 - Risk 3-dose series) [code = HEPATITIS B VACCINES (1 of 3 - Risk 3-dose series)] Future Scheduled 2022-03-25 COVID-19 VACCINE (3 - [facility] Test 14:48:42 Booster for Pfizer series) [code = COVID-19 VACCINE (3 - Booster for Pfizer series)] Future Scheduled 2022-03-25 65[facility] 14:48:42 VACCINE (4 - PPSV23 if available, else PCV20) [code = 65+ PNEUMOCOCCAL VACCINE (4 - PPSV23 if available, else PCV20)] Future Scheduled 2022-03-25 INFLUENZA VACCINE Method [facility] Test 14:48:42 [code = INFLUENZA VACCINE] Future Scheduled 2022-03-25 SHINGLES VACCINES (1 Met [facility] Test 14:48:42 of 2) [code = SHINGLES VACCINES (1 of 2)] Future Scheduled 2022-03-25 BREAST CANCER [facility] Test 14:48:42 SCREENING [code = BREAST CANCER SCREENING] Future Scheduled 2022-03-25 COLONOSCOPY SCREENING [facility] Test 14:48:42 [code = COLONOSCOPY SCREENING] Future Scheduled 2022-03-25 HEPATITIS B VACCINES Met [facility] Test 14:48:42 (1 of 3 - Risk 3-dose series) [code = HEPATITIS B VACCINES (1 of 3 - Risk 3-dose series)] Future Scheduled 2022-03-25 COVID-19 VACCINE (3 - Me [facility] Test 14:48:42 Booster for Pfizer series) [code = COVID-19 VACCINE (3 - Booster for Pfizer series)] Future Scheduled 2022-03-25 65[facility] 14:48:42 VACCINE (4 - [...] of 2)] Future Scheduled 2022-03-25 BREAST CANCER [facility] Test 14:48:42 SCREENING [code = BREAST CANCER SCREENING] Future Scheduled 2022-03-25 COLONOSCOPY SCREENING [facility] Test 14:48:42 [code = COLONOSCOPY SCREENING] Future Scheduled 2022-03-25 HEPATITIS B VACCINES Met [facility] Test 14:48:42 (1 of 3 - Risk 3-dose series) [code = HEPATITIS B VACCINES (1 of 3 - Risk 3-dose series)] Future Scheduled 2022-03-25 COVID-19 VACCINE (3 - [facility] Test 14:48:42 Booster for Pfizer series) [code = COVID-19 VACCINE (3 - Booster for Pfizer series)] Future Scheduled 2022-03-25 65[facility] 14:48:42 VACCINE (4 - [...] of 2)] Future Scheduled 2022-03-25 BREAST CANCER [facility] Test 14:48:42 SCREENING [code = BREAST CANCER SCREENING] Future Scheduled 2022-03-25 COLONOSCOPY SCREENING [facility] Test 14:48:42 [code = COLONOSCOPY SCREENING] Future Scheduled 2022-03-25 HEPATITIS B VACCINES Met [facility] Test 14:48:42 (1 of 3 - Risk 3-dose series) [code = HEPATITIS B VACCINES (1 of 3 - Risk 3-dose series)] Future Scheduled 2022-03-25 COVID-19 VACCINE (3 - Me [facility] Test 14:48:42 Booster for Pfizer series) [code = COVID-19 VACCINE (3 - Booster for Pfizer series)] Future Scheduled 2022-03-25 65[facility] 14:48:42 VACCINE (4 - [...] of 2)] Future Scheduled 2022-03-25 BREAST CANCER [facility] Test 14:48:42 SCREENING [code = BREAST CANCER SCREENING] Future Scheduled 2022-03-25 COLONOSCOPY SCREENING [facility] Test 14:48:42 [code = COLONOSCOPY SCREENING] Future Scheduled 2022-03-25 HEPATITIS B VACCINES Met [facility] Test 14:48:42 (1 of 3 - Risk 3-dose series) [code = HEPATITIS B VACCINES (1 of 3 - Risk 3-dose series)] Future Scheduled 2022-03-25 COVID-19 VACCINE (3 - Me [facility] Test 14:48:42 Booster for Pfizer series) [...] of 2)] Future Scheduled 2022-03-25 BREAST CANCER [facility] Test 14:48:42 SCREENING [code = BREAST CANCER SCREENING] Future Scheduled 2022-03-25 COLONOSCOPY SCREENING [facility] Test 14:48:42 [code = COLONOSCOPY SCREENING] Future Scheduled 2022-03-25 HEPATITIS B VACCINES Met [facility] Test 14:48:42 (1 of 3 - Risk 3-dose series) [code = HEPATITIS B VACCINES (1 of 3 - Risk 3-dose series)] Future Scheduled 2022-03-25 COVID-19 VACCINE (3 - Me [facility] [place] [place] Test 14:48:42 Booster for Pfizer series) [code = COVID-19 VACCINE (3 - Booster for Pfizer series)] Future Scheduled 2022-03-25 65[facility] 14:48:42 VACCINE (4 - PPSV23 if available, else PCV20) [code = 65+ PNEUMOCOCCAL VACCINE (4 - PPSV23 if available, else PCV20)] Future Scheduled 2022-03-25 INFLUENZA VACCINE Method [facility] Test 14:48:42 [code = INFLUENZA VACCINE] Future Scheduled 2022-03-04 SHINGLES VACCINES (1 Met [facility] Test 14:03:57 of 2) [code = SHINGLES VACCINES (1 of 2)] Future Scheduled 2022-03-04 BREAST CANCER [facility] Test 14:03:57 SCREENING [code = BREAST CANCER SCREENING] Future Scheduled 2022-03-04 COLONOSCOPY SCREENING [facility] Test 14:03:57 [code = COLONOSCOPY SCREENING] Future Scheduled 2022-03-04 HEPATITIS B VACCINES Met [facility] Test 14:03:57 (1 of 3 - Risk 3-dose series) [code = HEPATITIS B VACCINES (1 of 3 - Risk 3-dose series)] Future Scheduled 2022-03-04 COVID-19 VACCINE (3 - [facility] Test 14:03:57 Booster for Pfizer series) [code = COVID-19 VACCINE (3 - Booster for Pfizer series)] Future Scheduled 2022-03-04 65[facility] 14:03:57 VACCINE (4 - [...] of 2)] Future Scheduled 2022-03-04 BREAST CANCER [facility] Test 14:03:57 SCREENING [code = BREAST CANCER SCREENING] Future Scheduled 2022-03-04 COLONOSCOPY SCREENING [facility] Test 14:03:57 [code = COLONOSCOPY SCREENING] Future Scheduled 2022-03-04 HEPATITIS B VACCINES Met [facility] Test 14:03:57 (1 of 3 - Risk 3-dose series) [code = HEPATITIS B VACCINES (1 of 3 - Risk 3-dose series)] Future Scheduled 2022-03-04 COVID-19 VACCINE (3 - [facility] Test 14:03:57 Booster for Pfizer series) [code = COVID-19 VACCINE (3 - Booster for Pfizer series)] Future Scheduled 2022-03-04 65+ PNEUMOCOCCAL [facility] Test 14:03:57 VACCINE (4 [...] of 2)] Future Scheduled 2022-03-04 BREAST CANCER [facility] Test 14:03:57 SCREENING [code = BREAST CANCER SCREENING] Future Scheduled 2022-03-04 COLONOSCOPY SCREENING [facility] Test 14:03:57 [code = COLONOSCOPY SCREENING] Future Scheduled 2022-03-04 HEPATITIS B VACCINES Met [facility] Test 14:03:57 (1 of 3 - Risk 3-dose series) [code = HEPATITIS B VACCINES (1 of 3 - Risk 3-dose series)] Future Scheduled 2022-03-04 COVID-19 VACCINE (3 - [facility] Test 14:03:57 Booster for Pfizer series) [code = COVID-19 VACCINE (3 - Booster for Pfizer series)] Future Scheduled 2022-03-04 65[facility] 14:03:57 VACCINE (4 - PPSV23 if available, else PCV20) [code = 65+ PNEUMOCOCCAL VACCINE (4 - PPSV23 if available, else PCV20)] Future Scheduled 2022-03-04 INFLUENZA VACCINE Method [facility] Test 14:03:57 [code = INFLUENZA VACCINE] Future Scheduled 2022-03-04 SHINGLES VACCINES (1 Met [facility] Test 14:03:57 of 2) [code = SHINGLES VACCINES (1 of 2)] Future Scheduled 2022-03-04 BREAST CANCER [facility] Test 14:03:57 SCREENING [code = BREAST CANCER SCREENING] Future Scheduled 2022-03-04 COLONOSCOPY SCREENING [facility] Test 14:03:57 [code = COLONOSCOPY SCREENING] Future Scheduled 2022-03-04 HEPATITIS B VACCINES Met [facility] Test 14:03:57 (1 of 3 - Risk 3-dose series) [code = HEPATITIS B VACCINES (1 of 3 - Risk 3-dose series)] Future Scheduled 2022-03-04 COVID-19 VACCINE (3 - [facility] Test 14:03:57 Booster for Pfizer series) [code = COVID-19 VACCINE (3 - Booster for Pfizer series)] Future Scheduled 2022-03-04 65[facility] 14:03:57 VACCINE (4 - PPSV23 if available, else PCV20) [code = 65+ PNEUMOCOCCAL VACCINE (4 - PPSV23 if available, else PCV20)] Future Scheduled 2022-03-04 INFLUENZA VACCINE Method [facility] Test 14:03:57 [code = INFLUENZA VACCINE] Future Scheduled 2022-02-11 SHINGLES VACCINES (1 Met [facility] Test 13:39:12 of 2) [code = SHINGLES VACCINES (1 of 2)] Future Scheduled 2022-02-11 BREAST CANCER [facility] Test 13:39:12 SCREENING [code = [...] Pfizer series)] Future Scheduled 2022-02-11 65+ PNEUMOCOCCAL [facility] Test 13:39:12 VACCINE (4 - PPSV23 or PCV20) [code = 65+ PNEUMOCOCCAL VACCINE (4 - PPSV23 or PCV20)] Future Scheduled 2022-02-11 INFLUENZA VACCINE Method [facility] Test 13:39:12 [code = INFLUENZA VACCINE] Future Scheduled 2022-01-29 SHINGLES VACCINES (1 Met [facility] Test 14:07:20 of 2) [code = SHINGLES VACCINES (1 of 2)] Future Scheduled 2022-01-29 BREAST CANCER [facility] Test 14:07:20 SCREENING [code = BREAST CANCER SCREENING] Future Scheduled 2022-01-29 COLONOSCOPY SCREENING [facility] Test 14:07:20 [code = COLONOSCOPY SCREENING] Future Scheduled 2022-01-29 HEPATITIS B VACCINES Met [facility] Test 14:07:20 (1 of 3 - Risk 3-dose series) [code = HEPATITIS B VACCINES (1 of 3 - Risk 3-dose series)] Future Scheduled 2022-01-29 COVID-19 VACCINE (3 - Me [facility] [place] [place] Test 14:07:20 Booster for Pfizer series) [code = COVID-19 VACCINE (3 - Booster for Pfizer series)] Future Scheduled 2022-01-29 65+ PNEUMOCOCCAL [facility] Test 14:07:20 VACCINE (4 - PPSV23 or PCV20) [code = 65+ PNEUMOCOCCAL VACCINE (4 - PPSV23 or PCV20)] Future Scheduled 2022-01-29 INFLUENZA VACCINE Method [facility] Test 14:07:20 [code = INFLUENZA VACCINE] Future Scheduled 2022-01-29 SHINGLES VACCINES (1 Met [facility] Test 14:07:20 of 2) [code = SHINGLES VACCINES (1 of 2)] Future Scheduled 2022-01-29 BREAST CANCER [facility] Test 14:07:20 SCREENING [code = BREAST CANCER SCREENING] Future Scheduled 2022-01-29 COLONOSCOPY SCREENING [facility] Test 14:07:20 [code = COLONOSCOPY SCREENING] Future Scheduled 2022-01-29 HEPATITIS B VACCINES Met [facility] Test 14:07:20 (1 of 3 - Risk 3-dose series) [code = HEPATITIS B VACCINES (1 of 3 - Risk 3-dose series)] Future Scheduled 2022-01-29 COVID-19 VACCINE (3 - Me [facility] [place] [place] Test 14:07:20 Booster for Pfizer series) [code = COVID-19 VACCINE (3 - Booster for Pfizer series)] Future Scheduled 2022-01-29 65+ PNEUMOCOCCAL [facility] Test 14:07:20 VACCINE (4 - PPSV23 or PCV20) [code = 65+ PNEUMOCOCCAL VACCINE (4 - PPSV23 or PCV20)] Future Scheduled 2022-01-29 INFLUENZA VACCINE Method [facility] Test 14:07:20 [code = INFLUENZA VACCINE] Future Scheduled 2022-01-29 SHINGLES VACCINES (1 Met [facility] Test 14:07:20 of 2) [code = SHINGLES VACCINES (1 of 2)] Future Scheduled 2022-01-29 BREAST CANCER [facility] Test 14:07:20 SCREENING [code = [...] Pfizer series)] Future Scheduled 2022-01-29 65+ PNEUMOCOCCAL [facility] Test 14:07:20 VACCINE (4 - PPSV23 or PCV20) [code = 65+ PNEUMOCOCCAL VACCINE (4 - PPSV23 or PCV20)] Future Scheduled 2022-01-29 INFLUENZA VACCINE Method [facility] Test 14:07:20 [code = INFLUENZA VACCINE] Future Scheduled 2022-01-29 SHINGLES VACCINES (1 Met [facility] Test 14:07:20 of 2) [code = SHINGLES VACCINES (1 of 2)] Future Scheduled 2022-01-29 BREAST CANCER [facility] Test 14:07:20 SCREENING [code = [...] Pfizer series)] Future Scheduled 2022-01-29 65+ PNEUMOCOCCAL [facility] Test 14:07:20 VACCINE (4 - PPSV23 or PCV20) [code = 65+ PNEUMOCOCCAL VACCINE (4 - PPSV23 or PCV20)] Future Scheduled 2022-01-29 INFLUENZA VACCINE Method [facility] Test 14:07:20 [code = INFLUENZA VACCINE] Future Scheduled 2022-01-20 SHINGLES VACCINES (1 Met [facility] Test 06:12:34 of 2) [code = SHINGLES VACCINES (1 of 2)] Future Scheduled 2022-01-20 Screening for [facility] Test 06:12:34 malignant neoplasm of cervix (procedure) [code = [id number]] Future Scheduled 2022-01-20 BREAST CANCER [facility] Test 06:12:34 SCREENING [code = [...] Pfizer series)] Future Scheduled 2022-01-20 65+ PNEUMOCOCCAL [facility] Test 06:12:34 VACCINE (4 - PPSV23 or PCV20) [code = 65+ PNEUMOCOCCAL VACCINE (4 - PPSV23 or PCV20)] Future Scheduled 2022-01-20 INFLUENZA VACCINE Method [facility] Test 06:12:34 [code = INFLUENZA VACCINE] Future Scheduled 2022-01-16 SHINGLES VACCINES (1 Met [facility] Test 12:09:25 of 2) [code = SHINGLES VACCINES (1 of 2)] Future Scheduled 2022-01-16 Screening for [facility] Test 12:09:25 malignant neoplasm of cervix (procedure) [code = [id number]] Future Scheduled 2022-01-16 BREAST CANCER [facility] Test 12:09:25 SCREENING [code = [...] Pfizer series)] Future Scheduled 2022-01-16 65+ PNEUMOCOCCAL [facility] Test 12:09:25 VACCINE (4 - PPSV23 or PCV20) [code = 65+ PNEUMOCOCCAL VACCINE (4 - PPSV23 or PCV20)] Future Scheduled 2022-01-16 INFLUENZA VACCINE Method [facility] Test 12:09:25 [code = INFLUENZA VACCINE] Future Scheduled 2022-01-14 SHINGLES VACCINES (1 Met [facility] Test 04:11:46 of 2) [code = SHINGLES VACCINES (1 of 2)] Future Scheduled 2022-01-14 Screening for [facility] Test 04:11:46 malignant neoplasm of cervix (procedure) [code = [id number]] Future Scheduled 2022-01-14 BREAST CANCER [facility] Test 04:11:46 SCREENING [code = BREAST CANCER SCREENING] Future Scheduled 2022-01-14 COLONOSCOPY SCREENING [facility] Test 04:11:46 [code = COLONOSCOPY SCREENING] Future Scheduled 2022-01-14 HEPATITIS B VACCINES Met [facility] Test 04:11:46 (1 of 3 - Risk 3-dose series) [code = HEPATITIS B VACCINES (1 of 3 - Risk 3-dose series)] Future Scheduled 2022-01-14 COVID-19 VACCINE (3 - [facility] Test 04:11:46 Booster for Pfizer series) [code = COVID-19 VACCINE (3 - Booster for Pfizer series)] Future Scheduled 2022-01-14 65+ PNEUMOCOCCAL [facility] Test 04:11:46 VACCINE (4 - PPSV23 or PCV20) [code = 65+ PNEUMOCOCCAL VACCINE (4 - PPSV23 or PCV20)] Future Scheduled 2022-01-14 INFLUENZA VACCINE Method [facility] Test 04:11:46 [code = INFLUENZA VACCINE] Future Scheduled 2021-08-26 Screening for [facility] Test 13:02:23 malignant neoplasm of cervix (procedure) [code = [id number]] Future Scheduled 2021-08-26 BREAST CANCER [facility] Test 13:02:23 SCREENING [code = BREAST CANCER SCREENING] Future Scheduled 2021-08-26 COLONOSCOPY SCREENING [facility] Test 13:02:23 [code = COLONOSCOPY SCREENING] Future Scheduled 2021-08-26 Screening for [facility] Test 13:02:23 malignant neoplasm of lung (procedure) [code = 622084199] Future Scheduled 2021-08-26 SHINGLES VACCINES (#1) M [facility] Test 13:02:23 [code = SHINGLES VACCINES (#1)] Future Scheduled 2021-08-26 COVID-19 VACCINE (3 - [facility] Test 13:02:23 Pfizer risk 4-dose series) [code = COVID-19 VACCINE (3 - Pfizer risk 4-dose series)] Future Scheduled 2021-08-26 65+ PNEUMOCOCCAL [facility] Test 13:02:23 VACCINE (4 of 4 - PPSV23) [code = 65+ PNEUMOCOCCAL VACCINE (4 of 4 - PPSV23)] Future Scheduled 2021-08-26 INFLUENZA VACCINE Method [facility] Test 13:02:23 [code = INFLUENZA VACCINE] Encounters Start End Encounter Admission Attending Care Care Encounter Source Date/Time Date/Time Type Type Clinicians Facility Department ID 2022-02-18 Outpatient CHW [facility] [id number] [place] 14:30:[address] [place] [address] 2021-07-14 Outpatient SADDOMENICOVIC, [facility] [id number] [place] 09:33:51 [facility] 2021-06-02 Outpatient HEMATPOUR, [facility] [id number] [place] 13:58:59 [facility] 2021-04-28 Outpatient HEMATPOUR, [facility] [id number] [place] 11:21:22 [facility] 2021-03-20 Emergency [facility] [id number] Univers 16:07:40 [facility] 2020-12-12 Outpatient HEMATPOUR, [facility] [id number] [place] 08:16:46 [facility] 2020-10-31 Outpatient HEMATPOUR, [facility] [id number] [place] 09:44:50 [facility] 2020-09-30 Outpatient HEMATPOUR, [facility] [id number] [place] 13:16:03 [facility] 2022-11-26 2022-11-26 Outpatient R [facility] [id number] Univers 08:30:00 08:30:00 [facility] 2022-11-15 2022-11-15 Outpatient R [facility] [id number] Univers 08:30:00 08:30:00 [facility] 2022-11-02 2022-11-02 Outpatient R [facility] [id number] Univers 08:30:00 08:30:00 [facility] 2022-10-27 2022-10-27 Telephone East, UNIVERSIT 1.2.840.114 [id number] Univers 00:00:00 00:00:00 [facility] 350.1.13.10 i ty [place] [id number] [address] 2022-10-06 2022-10-06 Outpatient R [facility] [id number] Univers 09:30:00 09:30:00 [facility] 2022-09-26 2022-09-26 Refill East, UNIVERSIT 1.2.856.506 [id number] Univers 00:00:00 00:00:00 [facility] 350.1.13.10 i [place] [id number] [address] 2022-09-03 2022-09-03 Outpatient R [facility] [id number] Univers 11:00:00 11:00:00 SANTIAGO ity [facility] 2022-08-24 2022-08-24 Refill East, 1.2.840.3 [id number] Univers 00:00:00 00:00:00 [place] 29271.1.1 ity of 3.104.2.7 [place] .3.326068 Medica l .8 Branch 2022-05-20 2022-05-20 Telephone [facility], [facility] 1.2.840.114 [id number] Univers 00:00:00 00:00:00 [facility] 350.1.13.10 i [place] [id number] [address] 2022-05-10 2022-05-10 Emergency [facility] [id number] Univers 10:30:00 16:31:00 HOME ity [facility] 2022-05-10 2022-05-10 Emergency [place], TRAUMA 1.2.840.114 99 [id number] Univers 10:30:00 16:31:00 [facility] 350.1.13.10 it [place] [id number] [facility] [address] [place] 2022-05-10 2022-05-10 Telephone [facility] 1.2.840.114 [id number] Univers 00:00:00 00:00:00 Santiago Y [facility] 350.1.13.10 i ty [place] [id number] [address] 2022-05-08 2022-05-08 Emergency [facility] [id number] Univers 16:18:00 18:42:00 THERESA ity [facility] 2022-05-08 2022-05-08 Emergency [facility] 1.2.840.114 [id number] Univers 16:18:00 18:42:00 Theresa BULLOCK 350.1.13.10 ity [place] [id number] [address] 2022-05-07 2022-05-07 Telephone [facility] 1.2.840.114 99 [id number] Univers 00:00:00 00:00:00 [facility] 350.1.13.10 i ty [place] [id number] [address] 2022-05-06 2022-05-06 Emergency [facility] [id number] Univers 14:13:00 18:19:00 [facility] 2022-05-06 2022-05-06 Emergency [facility] 1.2.010.342 [id number] Univers 14:13:00 18:19:00 [place] 350.1.13.10 ity [facility] 4.2.7.2.686 [facility] [id number] [address] 2022-05-06 2022-05-06 Telephone [facility] 1.2.840.114 99 [id number] Univers 00:00:00 00:00:00 [facility] 350.1.13.10 i [place] [id number] [address] 2022-04-22 2022-04-22 Emergency [facility] [id number] Univers 13:55:00 17:00:00 PAULETTE [facility] 2022-04-22 2022-04-22 Emergency [facility] 1.2.943.724 [id number] Univers 13:55:00 17:00:00 Paulette BULLOCK 350.1.13.10 i ty of [place] 4.2.7.2.686 [facility] [id number] [address] 2022-04-07 2022-04-07 Outpatient R ADRIAN, [facility] [id number] Univers 20:40:00 20:40:00 ATTENDING ity [facility] 2022-04-07 2022-04-07 Telephone Devin, 1.2.840.5 [id number] [id number] Univers 00:00:00 00:00:00 Robbi Hairston 26605.1.1 i ty of 3.104.2.7 [place] .3.585897 Medica l .8 [place] 2022-03-05 2022-03-05 Healthcare Specialist Santiago Cardenas 1.2.840.1 [id number] Univers 13:45:00 14:00:00 Visit [facility] 48673.1.1 ity of 3.104.2.7 [place] .3.922188 Medica l .8 [place] 2022-03-05 2022-03-05 Office Ronald [facility] 1.2.349.675 [id number] Univers 13:00:00 13:30:00 Visit Santiago [facility] 350.1.13.10 i ty of CL[place] 4.[place] [id number] [facility] porfirio [address] [place] 2022-03-05 2022-03-05 Outpatient R [facility] [id number] Univers 13:00:00 13:00:00 [facility] 2022-02-26 2022-02-26 Outpatient R [facility] [id number] Univers 08:30:00 08:30:00 [facility] 2022-02-26 2022-02-26 Outpatient R [facility] [id number] Univers 08:30:00 08:30:00 [facility] 2022-02-17 2022-02-17 Transition Stevo, 1.2.840.3 [id number] Univers 00:00:00 00:00:00 of Care Isaias Arredondo 51845.1.1 it y of 3.104.2.7 [place] .3.642759 Medica l .8 [place] 2022-02-10 2022-02-16 Inpatient X FRANK [facility] FAVIO [id number] Univers 22:59:00 19:27:00 TOMY barbosa [facility] 2022-02-10 2022-02-16 Hospital Reilly Measn 1.2.840.1 [id number] Univers 22:59:00 19:27:00 Encounter Ofe Shields 50750.1.1 ity of [place] 3.[place].2.7 [place] .3.605353 Medica l .8 [place] 2022-02-11 2022-02-11 Telephone East, 1.2.840.4 [id number] [id number] Univers 00:00:00 00:00:00 Santiago 88110.1.1 ity of 3.104.2.7 [place] .3.881176 Medica l .8 [place] 2022-02-10 2022-02-10 Travel 1.2.840.1 1.2.226.649 [id number] [id number] Univers 00:00:00 00:00:00 08940.1.1 350.1.13.10 ity of 3.104.2.7 4.2.7.3.698 [place] .3.823228 084.8 Medica l .8 [place] 2022-01-30 2022-01-30 Telephone East, 1.2.840.2 [id number] [id number] Univers 00:00:00 00:00:00 [place] 66040.1.1 ity of 3.104.2.7 [place] .3.457348 Medica l .8 [place] 2022-01-06 2022-01-06 Orders Doctor FERMIN 1.2.840.114 [id number] Univers 00:00:00 00:00:00 Only Unassigned, JACKELINE 350.1.13.10 ity of [place] [facility] 4.2.7.2.686 Yomi as [id number] [address] 2021-12-25 2021-12-25 Orders Doctor FERMIN 1.2.840.114 [id number] Univers 00:00:00 00:00:00 Only Unassigned, JACKELINE 350.1.13.10 ity of [place] [facility] 4.2.7.2.686 Yomi as [id number] [address] 2021-12-12 2021-12-13 Emergency X Bill COLES [facility] ERT [id number] Univers 23:53:00 01:52:00 ity of [facility] 2021-12-12 2021-12-13 Emergency Bill Coles [facility] 1.2.840.114 [id number] Univers 23:53:00 01:52:00 Kiersten BULLOCK 350.1.13.10 i ty of [place] [id number] [facility] [address] [place] 2021-11-20 2021-11-20 Healthcare Specialist [facility] UNIVERSIT 1.2.840.114 [id number] Univers 09:45:00 10:00:00 Visit Ronald [facility] 350.1.13.10 ity of [facility] 4.2.7.2.[place] 293.1678375 [facility] [address] 2021-11-20 2021-11-20 Office [facility] 1.2.502.105 8292 9084 Univers 08:30:00 09:00:00 Visit [facility] 350.1.13.10 i ty of [facility] 4.2.7.2.[place] 177.7504656 [facility] [address] [place] 2021-11-20 2021-11-20 Outpatient R [facility] [id number] Univers 08:30:00 08:30:00 [facility] 2021-11-20 2021-11-20 Outpatient R [facility] [id number] Univers 08:30:00 08:30:00 [facility] 2021-11-20 2021-11-20 Outpatient R [facility] [id number] Univers 08:30:00 08:30:00 [facility] 2021-11-20 2021-11-20 Outpatient R [facility] [id number] Univers 08:30:00 08:30:00 [facility] 2021-10-24 2021-10-24 Emergency X WALKER [facility] ERT [id number] Univers 16:27:00 22:26:00 [facility] 2021-10-24 2021-10-24 Emergency X WALKER [facility] ERT [id number] Univers 16:27:00 [facility]:26:[facility] 2021-10-24 2021-10-24 Emergency Reilly Means [facility] 1.2.840. 114 [id number] Univers 16:27:00 22:26:00 Charity Mcallister 350.1.13.10 ity of [place] 4.2.7.2.686 [facility] [id number] [address] 2021-10-23 2021-10-24 Emergency X [facility] ERT [id number] Univers 20:22:00 02:57:00 [facility] 2021-10-23 2021-10-24 Emergency [facility] 1.2.708.058 [id number] Univers 20:22:00 02:57:00 [facility] 350.1.13.10 ity of [place] 4.2.7.2.686 [facility] [id number] [address] 2021-09-07 2021-09-07 Outpatient R [facility], [facility] [id number] Univers 08:00:00 08:00:00 GADIEL vogel [facility] 2021-09-07 2021-09-07 Outpatient R SELF, [facility] [id number] Univers 08:00:00 08:00:00 GADIEL vogel [facility] 2021-08-21 2021-08-21 Outpatient R [facility] [id number] Univers 10:45:00 10:45:00 SANTIAGO barbosa [facility] 2021-08-21 2021-08-21 Healthcare Specialist [place] Cardenas 1.2.840.1 [id number] Univers 10:45:00 10:45:00 Visit [facility] 93362.1.1 ity of 3.104.2.7 [place] .3.919953 Medica l .8 [place] 2021-08-21 2021-08-21 Office Ronald, 1.2.840.3 [id number] Univers 08:30:00 09:00:00 Visit Santiago 79901.1.1 ity of 3.104.2.7 [place] .3.783841 Medica l .8 [place] 2021-08-21 2021-08-21 Office East, [facility] 1.2.649.170 [id number] [id number] Univers 08:30:00 09:00:00 [facility] 350.1.13.10 i ty of CLINICS 4.2.7.2.686 Richi bach [id number] [facility] porfirio [address] [place] 2021-08-21 2021-08-[address] [facility] [id number] Univers 08:30:00 08:30:00 SANTIAGO charlie [facility] 2021-08-21 2021-08-21 Travel 1.2.840.1 1.2.142.625 [id number] Univers 00:00:00 00:00:00 10405.1.1 350.1.13.10 ity of 3.104.2.7 4.2.7.3.698 [place] .3.047062 084.8 Medica l .8 [place] 2021-08-14 2021-08-14 Telephone East, 1.2.840.8 [id number] Univers 00:00:00 00:00:00 Santiago 17616.1.1 ity of 3.104.2.7 [place] .3.321848 Medica l .8 [place] 2021-08-13 2021-08-13 Telephone East, 1.2.840.6 [id number] Univers 00:00:00 00:00:00 Santiago 96188.1.1 ity of 3.104.2.7 [place] .3.750570 Medica l .8 [place] 2021-08-11 2021-08-[address] [facility] [id number] Univers 08:00:00 08:00:00 [facility] 2021-08-05 2021-08-05 Inpatient RAUL Lund, [facility] [id number] [facility] 05:24:00 05:24:00 Mike 31 [facility] 2021-07-20 2021-07-[address] [facility] [id number] Univers 10:00:00 10:00:00 [facility] 2021-07-14 2021-07-14 Office KIMBERLEY Lira 6400 1.2.840.114 13 [id number] [place] 08:45:00 09:34:[address] 350.1.13.58 Health 9.2.7.2.686 [id number] 1 2021-07-09 2021-07-09 Telephone Maryjaneporay, UTP 6400 1.2.840.114 [id number] [place] 00:00:00 00:00:[address] 350.1.13.58 Health 9.2.7.2.686 [id number] 1 2021-07-09 2021-07-09 Telephone Maryjaneporay, UTP 6400 1.2.840.114 [id number] [place] 00:00:00 00:00:[address] 350.1.13.58 Health 9.2.7.2.686 [id number] 1 2021-07-03 2021-07-03 Outpatient R EAST, [facility] [id number] Univers 08:00:00 08:00:00 SANTIAGO barbosa [facility] 2021-06-17 2021-06-17 Inpatient Ashely, [facility] INTE.02 [id number] [facility] 10:56:00 14:36:00 Mike 47 [facility] 2021-06-15 2021-06-15 Outpatient R SELF, [facility] [id number] Univers 10:15:00 11:07:21 GADIEL ity [facility] 2021-06-15 2021-06-15 Outpatient R SELF, [facility] [id number] Univers 10:15:00 10:15:00 [facility] 2021-06-15 2021-06-15 Outpatient R SELF, [facility] [id number] Univers 10:15:00 [facility]:15[facility]-15 2021-06-15 Orders Doctor 1.2.840.4 [id number] Univers 00:00:00 00:00:00 Only Unassigned, 68659.1.1 ity of [place] 3.104.2.7 [place] .3.684609 [facility] Branch 2021-06-15 2021-06-15 Travel 1.2.840.1 1.2.389.858 2154 [id number] Univers 00:00:00 00:00:00 23338.1.1 350.1.13.10 ity of 3.104.2.7 4.2.7.3.698 [place] .3.649292 084.8 Medica l .8 [place] 2021-06-11 2021-06-11 [facility] 1.2.472.316 [id number] 9185 Univers 00:00:00 00:00:00 [facility] 350.1.13.10 i ty of CLINICS 4[place] [id number] [place] 676099 [place] 2021-06-11 2021-06-11 Refill [facility], 1.2.840.5 [id number] Univers 00:00:00 00:00:00 Santiago 33962.1.1 ity of 3.104.2.7 [place] .3.284266 Medica l .8 [place] 2021-06-05 2021-06-05 Outpatient R [facility] [id number] Univers 09:00:00 09:00:00 SANTIAGO ity of [facility] 2021-06-02 2021-06-02 [facility] 1.2.840.114 [id number] Univers 00:00:00 00:00:00 [facility] 350.1.13.10 i ty of CL[place] 4[place] [id number] [address] 2021-06-02 2021-06-02 Telephone [facility], 1.2.840.4 [id number] [id number] Univers 00:00:00 00:00:00 Santiago 00011.1.1 ity of 3.104.2.7 [place] .3.546949 Medica l .8 [place] 2021-05-29 2021-05-29 Telephone [facility], 1.2.840.0 [id number] 902 95193 Univers 00:00:00 00:00:00 Santiago 54399.1.1 ity of 3.104.2.7 [place] .3.679333 Medica l .8 [place] 2021-05-292021-05-29 Telephone Ronald, 1.2.840.5 [id number] 902 [id number] Univers 00:00:00 00:00:00 Santiago 77730.1.1 [facility] 3.104.2.7 [facility].429242 Medica l 8 Branch 2021-05-25 2021-05-25 Outpatient R SELF, [facility] [id number] Univers 08:00:00 08:00:00 GADIEL barbosa [facility] 2021-04-29 2021-04-29 Outpatient R LALA, [facility] [id number] Univers 08:00:00 08:00:00 NIKOLAI raheemcharlie [facility] 2021-04-28 2021-04-28 Telephone Maryjanejuniray [facility] 6400 1.2.840.114 [id number] [place] 00:00:00 00:00:[address] 350.1.13.58 Health 9.2.7.2.686 [id number] 1 2021-04-28 2021-04-28 Telephone Jailyn, 1.2.840.4 [id number] 21 [id number] Methodi 00:00:00 00:00:[address] 3.430.2.7 Hospit a .3.154813 l .8 2021-03-31 2021-03-31 Orders Carol Ann, 1.2.840.1 [id number] 21 [id number] Methodi 00:00:00 00:00:00 Only Sarai Lieberman 05084.1.1 979 s t 3.430.2.7 Hospit a .3.069090 l .8 2021-03-30 2021-03-30 Outpatient R SELF, [facility] [id number] Univers 08:45:00 08:45:00 GADIELKEI rodas [facility] 2021-03-24 2021-03-24 Telephone Jererichelle, 1.2.840.6 [id number] Methodi 00:00:00 00:00:[address] 3.430.2.7 Hospit a .3.633665 l .8 2021-02-13 2021-02-13 Telephone Ronald, 1.2.840.3 [id number] 876 [id number] Univers 00:00:00 00:00:00 Santiago 01838.1.1 ity of 3.104.2.7 [place] .3.398352 Medica l .8 Branch 2021-01-28 2021-01-28 Laure REEVES, [facility] [id number] Univers 08:45:00 09:37:00 NIKOLAI ity of [facility] 2021-01-28 2021-01-28 Travel 1.2.840.1 1.2.766.013 9600 9777 Univers 00:00:00 00:00:00 31402.1.1 350.1.13.10 ity of 3.104.2.7 4.2.7.3.698 [place] .3.456950 084.8 Medica l .8 [place] 2021-01-19 2021-01-19 Telephone Pelletier, 1.2.840.1 [id number] 2100 [id number] Method 00:00:00 00:00:[address] 3.430.2.7 Hospit a .3.476080 l .8 2021-01-04 2021-01-04 Dmitry Bass, 1.2.840.7 [id number] 696 Univers 00:00:00 00:00:00 (Out) Dagoberto Peterson 96925.1.1 ity of 3.104.2.7 [place] .3.706203 Medica l .8 Branch 2021-01-04 2021-01-04 Dmitry Bass, 1.2.840.3 [id number] 76901 696 Univers 00:00:00 00:00:00 (Out) Dagoberto H 99055.1.1 ity of 3.104.2.7 [place] .3.947879 Medica l .8 Branch 2021-01-03 2021-01-03 Dmitry Bass, 1.2.840.5 [id number] 52960 790 Univers 00:00:00 00:00:00 (Out) Dagoberto H 95589.1.1 ity of 3.104.2.7 [place] .3.561978 Medica l .8 Branch 2021-01-03 2021-01-03 Letter Shelia, 1.2.840.5 [id number] 790 Univers 00:00:00 00:00:00 (Out) Dagoberto Peterson 48796.1.1 ity of 3.104.2.7 [place] .3.269584 Medica l .8 [place] 2021-01-02 2021-01-02 Outpatient R [facility] [id number] Univers 13:40:00 13:40:00 ity of [facility] 2021-01-02 2021-01-02 Laboratory Cuba Franks 1.2.840.3 [id number] Univers 12:14:13 12:57:34 Only Lab, [facility] [place] 69116.1.1 ity of 3.104.2.7 [place] .3.513298 Medica l .8 [place] 2021-01-02 2021-01-02 Laboratory [place] Franks 1.2.840.1 [id number] Univers 12:14:13 12:57:34 Only Lab, [facility] [place] 11177.1.1 ity of 3.104.2.7 [place] .3.064618 Medica l .8 [place] 2021-01-02 2021-01-02 Travel 1.2.840.1 1.2.867.961 4825 2306 Univers 00:00:00 00:00:00 56585.1.1 350.1.13.10 ity of 3.104.2.7 4.2.7.3.698 [place] .3.974834 084.8 Medica l .8 [place] 2021-01-02 2021-01-02 Letter Doctor 1.2.840.2 [id number] 948 Univers 00:00:00 00:00:00 (Out) Unassigned, 05481.1.1 ity of [place] 3.104.2.7 [place] .3.998147 Medica l .8 [place] 2021-01-02 2021-01-02 Letter Doctor 1.2.840.6 [id number] 946 Univers 00:00:00 00:00:00 (Out) Unassigned, 93944.1.1 ity of [place] 3.104.2.7 [place] .3.487430 Medica l .8 Branch 2021-01-02 2021-01-02 Travel 1.2.840.1 1.2.029.297 3833 2306 Univers 00:00:00 00:00:00 86647.1.1 350.1.13.10 ity of 3.104.2.7 4.2.7.3.698 [place] .3.761747 084.8 Medica l .8 [place] 2021-01-02 2021-01-02 Letter Doctor 1.2.840.8 [id number] [id number] 948 Univers 00:00:00 00:00:00 (Out) Unassigned, 44226.1.1 ity of [place] 3.104.2.7 [place] .3.755072 Medica l .8 [place] 2021-01-02 2021-01-02 Letter Doctor 1.2.840.8 [id number] 946 Univers 00:00:00 00:00:00 (Out) Unassigned, 26854.1.1 ity of [place] 3.104.2.7 [place] .3.232344 Medica l .8 Branch 2020-12-22 2020-12-22 Telephone Devin, 1.2.840.9 [id number] 862 11625 Univers 00:00:00 00:00:00 Robbi Hairston 78273.1.1 i ty of 3.104.2.7 [place] .3.640542 Medica l .8 [place] 2020-12-22 2020-12-22 Telephone Beltran, 1.2.840.7 [id number] 862 37588 Univers 00:00:00 00:00:00 Eligionda R 68356.1.1 i ty of 3.104.2.7 [place] .3.449098 Medica l .8 [place] 2020-12-12 2020-12-12 Office Hematpour, UTP 6400 1.2.840.114 12 [id number] [place] 07:42:02 08:18:[address] 350.1.13.58 Health 9.2.7.2.686 [id number] 1 2020-12-12 2020-12-12 Office Hematporay, UTP 6400 1.2.840.114 12 [id number] 07:42:02 08:18:[address] 350.1.13.58 9.2.7.2.686 [id number] 1 2020-12-09 2020-12-09 Telephone [facility], 1.2.840.1 [id number] Methodi 00:00:00 00:00:00 Sarai CorbinChelsie 58852.1.1 316 s t 3.430.2.7 Hospit a .3.551494 l .8 2020-12-08 2020-12-08 [facility], 1.2.840.1 [id number] [id number] Methodi 12:35:54 23:59:00 Encounter Ray [address]686.1.[address] 3.430.2.7 Hospit a .3.629145 l .8 2020-12-08 2020-12-08 [facility], 1.2.840.1 [id number] Methodi 17:25:00 17:30:[address] 3.430.2.7 Hospit a .3.726191 l .8 2020-12-08 2020-12-08 Office [facility], 1.2.840.1 [id number] Methodi 10:30:00 11:39:56 Visit Ray 48350.1.[address] 3.430.2.7 Hospit a .3.861468 l .8 2020-12-08 2020-12-08 Travel 1.2.840.1 1.2.579.604 5721 478114 Methodi 00:00:00 00:00:[address] 3.430.2.7 0.2.7.3.698 Ho spita .3.195207 084.8 l .8 2020-12-02 2020-12-02 Healthcare Specialist Yohan Cardenasrey 1.2.840.1 [id number] Univers 10:20:06 10:36:19 Visit [facility] 57947.1.1 ity of 3.104.2.7 [place] .3.096987 Medica l .8 [place] 2020-12-02 2020-12-02 Healthcare Specialist Ronald Santiago 1.2.840.1 [id number] Univers 10:20:06 10:36:19 Visit [facility] 55822.1.1 ity of 3.104.2.7 [place] .3.603505 Medica l .8 [place] 2020-12-02 2020-12-02 Healthcare Specialist [facility]ERSIT 1.2.840.114 8 [id number] 10:20:06 10:36:19 Visit [facility] 350.1.13.10 CLINICS 4.2.7.2.686 [id number] 316 2020-12-02 2020-12-02 Office Ronald, 1.2.840.3 [id number] Univers 08:31:37 09:01:37 Visit Santiago 18588.1.1 ity of 3.104.2.7 [place] .3.142367 Medica l .8 [place] 2020-12-02 2020-12-02 [id number] [facility] 09:00:00 09:00:00 [place] ity of [facility] 2020-11-25 2020-11-25 Office [place], 1.2.840.8 [id number] Univers 11:06:30 11:58:14 Visit Robbi Hairston 87678.1.1 i ty of 3.104.2.7 [place] .3.029002 Medica l .8 [place] 2020-11-25 2020-11-25 Office [place], 1.2.840.6 [id number] Univers 11:06:30 11:58:14 Visit Robbi Hairston 89929.1.1 i ty of 3.104.2.7 [place] .3.174987 Medica l .8 [place] 2020-11-25 2020-11-25 Office Devin [facility] 1.2.840.114 [id number] 11:06:30 11:58:14 Visit Robbi Hairston SMASH HAND 350.1.13.10 REGIONAL 4.2.7.2.686 MATERNAL [id number] & CHILD [address] [place] [address] 2020-11-25 2020-11-25 Outpatient R [facility] [id number] Univers 11:00:00 11:00:00 ity of [facility] 2020-11-25 2020-11-25 Telephone Devin, 1.2.840.0 [id number] Univers 00:00:00 00:00:00 Robbi Hairston 30330.1.1 i ty of 3.104.2.7 [place] .3.797196 Medica l .8 [place] 2020-11-25 2020-11-25 Refill [place], 1.2.840.0 [id number] 592 Univers 00:00:00 00:00:00 Santiago 34323.1.1 ity of 3.104.2.7 [place] .3.723873 Medica l .8 [place] 2020-11-25 2020-11-25 Travel 1.2.840.1 1.2.731.604 3483 0247 Univers 00:00:00 00:00:00 03735.1.1 350.1.13.10 ity of 3.104.2.7 4.[place].7.3.698 [place] .3.259179 084.8 Medica l .8 [place] 2020-11-25 2020-11-25 Orders Doctor 1.2.840.6 [id number] 064 Univers 00:00:00 00:00:00 Only Unassigned, 11518.1.1 ity of [place] 3.104.2.7 [place] .3.227455 Medica l .8 [place] 2020-11-25 2020-11-25 Telephone Devin, 1.2.840.8 [id number] 855 21360 Univers 00:00:00 00:00:00 Robbi R 88855.1.1 i ty of 3.104.2.7 [place] .3.432589 Medica l .8 [place] 2020-11-25 2020-11-25 Refill East, 1.2.840.9 [id number] 10821 592 Univers 00:00:00 00:00:00 Santiago 88021.1.1 ity of 3.104.2.7 [place] .3.285152 Medica l .8 [place] 2020-11-25 2020-11-25 Travel 1.2.840.1 1.2.909.784 6752 0247 Univers 00:00:00 00:00:00 71754.1.1 350.1.13.10 ity of 3.104.2.7 4.[place].7.3.698 [place] .3.423648 084.8 Medica l .8 [place] 2020-11-25 2020-11-25 Orders Doctor 1.2.840.0 [id number] 04862 064 Univers 00:00:00 00:00:00 Only Unassigned, 17671.1.1 ity of [place] 3.104.2.7 [place] .3.031232 Medica l .8 [place] 2020-11-25 2020-11-25 [facility] 1.2.367.432 7251 4592 00:00:00 00:00:00 [facility] 350.1.13.10 [facility] 4.2.7.2.686 058.2303913 089 2020-11-25 2020-11-25 Telephone [facility] 1.2.376.392 0429 0821 00:00:00 00:00:00 Robbi Hairston SMASH HAND 350.1.13.10 REGIONAL 4.2.7.2.686 MATERNAL [id number] & CHILD [address] [place] [address] 2020-11-14 2020-11-14 Abstract Clark, 1.2.840.1 [id number] 10985 91854 Methodi 00:00:00 00:00:[address] 3.430.2.7 Hospit a .3.662123 l .8 2020-11-14 2020-11-14 Telephone Rodas, 1.2.840.1 [id number] 2100 [id number] Method 00:00:00 00:00:[address] 3.430.2.7 Hospit a .3.978217 l .8 2020-11-12 2020-11-12 [facility] [id number] Univers 08:30:00 08:30:00 SANTIAGO barbosa [facility] 2020-11-07 2020-11-07 Telephone DianaJavierAgustina UTP 6400 1.2.840.11 4 [id number] [place] 00:00:00 00:00:[address] 350.1.13.58 Health 9.2.7.2.686 352.5657190 1 2020-11-07 2020-11-07 Telephone Diana UTP 6400 1.2.840.114 124 [id number] 00:00:00 00:00:[address] 350.1.13.58 9.2.7.2.686 080.2699520 1 2020-10-31 2020-10-31 Office Hematporay UTP 6400 1.2.840.114 12 [id number] [place] 07:54:00 09:45:[address] 350.1.13.58 Health 9.2.7.2.686 [id number] 1 2020-10-30 2020-10-30 Abstract Andrez Rody UTP 6400 1.2.840.1 14 [id number] [place] 00:00:00 00:00:[address] 350.1.13.58 Health 9.2.7.2.686 [id number] 1 2020-10-29 2020-10-29 Refill Ronald, 1.2.840.1 [id number] 07399 400 Univers 00:00:00 00:00:00 Santiago 50505.1.1 itcharlie 3.104.2.7 [place] .3.254081 Medica l .8 [place] 2020-10-29 2020-10-29 Refill [place], 1.2.840.0 [id number] 400 Univers 00:00:00 00:00:00 Santiago 13369.1.1 ity of 3.104.2.7 [place] .3.643502 Medica l .8 [place] 2020-10-27 2020-10-27 Telephone Jailyn, 1.2.840.3 [id number] 21 [id number] Methodi 00:00:00 00:00:[address] 3.430.2.7 Hospit a .3.983194 l .8 2020-10-24 2020-10-24 Telephone Clark, 1.2.840.1 [id number] 2100 092520 Methodi 00:00:00 00:00:[address] 3.430.2.7 Hospit a .3.438595 l .8 2020-10-22 2020-10-22 Outpatient R SELF, [facility] [id number] Univers 13:00:00 13:00:00 GADIEL vogel f [facility] 2020-10-22 2020-10-22 Travel 1.2.840.1 1.2.079.914 8459 3839 Univers 00:00:00 00:00:00 91567.1.1 350.1.13.10 ity of 3.104.2.7 4.2.7.3.698 [place] .3.367550 084.8 Medica l .8 [place] 2020-10-22 2020-10-22 Travel 1.2.840.1 1.2.625.347 4980 3839 Univers 00:00:00 00:00:00 91349.1.1 350.1.13.10 ity of 3.104.2.7 4.2.7.3.698 [place] .3.490948 084.8 Medica l .8 [place] 2020-10-13 2020-10-13 Outpatient R SELF, [facility] [id number] Univers 08:45:00 08:45:00 GADIEL rodas [facility] 2020-10-06 2020-10-12 Telemedici [facility], 1.2.840.1 [id number] Methodi 15:30:00 00:08:46 ne Ray 77569.1.[address] 3.430.2.7 Hospit a .3.948172 l .8 2020-09-30 2020-09-30 [facility], 1.2.840.3 [id number] Methodi 00:00:00 00:00:[address] 3.430.2.7 Hospit a .3.920194 l .8 2020-09-21 2020-09-21 Travel 1.2.840.1 1.2.167.329 6715 640312 Methodi 00:00:00 00:00:[address] 3.430.2.7 0.2.7.3.698 Ho spita .3.612431 084.8 l .8 2020-09-06 2020-09-06 [facility] 1.2.840.1 [id number] 60654 02522 Methodi 17:42:30 23:59:[address] 3.430.2.7 Hospit a .3.276128 l .8 2020-09-06 2020-09-06 [facility], 1.2.840.1 [id number] 2100 750807 Methodi 16:50:00 17:41:00 Encounter Ray [address]7910.1.[address] 3.430.2.7 Hospit a .3.238923 l .8 2020-09-05 2020-09-05 [facility], 1.2.840.1 [id number] 2099 [id number] Methodi 09:17:00 19:45:00 Encounter Ray [address]140.1.[address] 3.430.2.7 Hospit a .3.311519 l .8 2020-09-05 2020-09-05 [facility], 1.2.840.1 [id number] 41797 17756 Methodi 11:30:00 13:15:[address] 3.430.2.7 Hospit a .3.406843 l .8 2020-09-05 2020-09-05 Anesthesia Remigio, 1.2.840.1 [id number] 922 [id number] Methodi 11:27:00 12:20:00 Event Kirit 58325.1.1 243 s t V. 3.430.2.7 Hospit a .3.090141 l .8 2020-09-05 2020-09-05 Travel 1.2.840.1 1.2.672.264 1171 160560 Methodi 00:00:00 00:00:[address] 3.430.2.7 0.2.7.3.698 Ho spita .3.645495 084.8 l .8 2020-09-04 2020-09-04 Telephone Meisenbach, 1.2.840.1 [id number] Methodi 00:00:00 00:00:00 Sarai M. 90079.1.1 762 s t 3.430.2.7 Hospit a .3.069279 l .8 2020-09-02 2020-09-02 Telephone Meisenbach, 1.2.840.5 [id number] Methodi 00:00:00 00:00:00 Sarai M. 45775.1.1 344 s t 3.430.2.7 Hospit a .3.886043 l .8 2020-08-29 2020-08-30 Bedded [facility] [id number] Memoria 10:20:00 14:10:00 Outpatient r Marty 00 l [facility] 2020-08-29 2020-08-30 Outpatient HEMATPOUR, [facility] CAR 7500 [facility] 05:20:00 09:10:00 BEVERLY 2020-08-06 2020-08-06 Office East, 1.2.840.[id number] [place] [address] 08:03:23 09:17:49 Visit Santiago 20557.1.1 ity of 3.104.2.7 [place] .3.878699 Medica l .8 [place] 2020-08-06 2020-08-06 Outpatient R EAST, [facility] [id number] Univers 08:30:00 08:30:00 SANTIAGO ity of [facility] 2020-07-14 2020-07-14 Outpatient R SELF, [facility] [id number] Univers 09:30:00 09:30:00 GADIEL macielcharlie o f [facility] 2020-07-14 2020-07-14 Travel 1.2.840.1 1.2.225.770 3628 2575 Univers 00:00:00 00:00:00 16095.1.1 350.1.13.10 ity of 3.104.2.7 4.[place].7.3.698 [place] .3.529600 084.8 Medica l .8 [place] 2020-07-14 2020-07-14 Orders Doctor 1.2.840.3 [id number] 309 Univers 00:00:00 00:00:00 Only Unassigned, 01854.1.1 ity of [place] 3.104.2.7 [place] .3.543748 Medica l .8 [place] 2020-06-16 2020-06-16 Outpatient R SELF, [facility] [id number] Univers 08:00:00 08:00:00 GADIEL rodas [facility] 2020-06-06 2020-06-06 Telephone Shelby Cardenas.2.840.3 [id number] 809 [id number] Univers 00:00:00 00:00:00 Santiago 48082.1.1 ity of 3.104.2.7 [place] .3.100558 Medica l .8 [place] 2020-06-04 2020-06-04 Healthcare Specialist [place] Cardenas 1.2.840.1 [id number] Univers 09:31:58 09:40:12 Visit [facility] 26634.1.1 ity of 3.104.2.7 [place] .3.720187 Medica l .8 [place] 2020-06-042020-06-04 Office East, [facility] 1.2.510.458 4459 9729 Univers 08:13:41 09:28:25 Visit Santiago [facility] 350.1.13.10 i ty of CLINICS 4.2.7.2.686 Richi bach 111.9652039 [facility] 089 [place] 2020-06-04 2020-06-04 Outpatient R [facility] [id number] Univers 08:30:00 08:30:00 [facility]-06-[facility] 2020-06-04 Orders Doctor 1.2.840.5 [id number] 079 Univers 00:00:00 00:00:00 Only Unassigned, 10290.1.1 ity of [place] 3.104.2.7 [place] .3.079951 Medica l .8 [place] 2020-05-19 2020-05-19 Telephone [place], 1.2.840.3 [id number] 804 [id number] Univers 00:00:00 00:00:00 Santiago 20226.1.1 ity of 3.104.2.7 [place] .3.332249 Medica l .8 [place] 2020-04-24 2020-04-24 Telephone [place], 1.2.840.1 [id number] 799 25403 Univers 00:00:00 00:00:00 Santiago 00783.1.1 ity of 3.104.2.7 [place] .3.157579 Medica l .8 [place] 2020-04-14 2020-04-14 Outpatient R [facility] [id number] Univers 09:00:00 09:00:00 [facility] 2020-04-14 2020-04-14 Telephone East, 1.2.840.7 [id number] 797 [id number] Univers 00:00:00 00:00:00 Santiago 33090.1.1 ity of 3.104.2.7 [place] .3.653621 Medica l .8 [place] 2020-03-31 2020-03-31 Outpatient R [facility] [id number] Univers 08:30:00 08:30:00 SANTIAGO [facility] 2020-03-03 2020-03-03 Outpatient R SELF, [facility] [id number] Univers 08:00:00 08:00:00 GADIEL barbosa o f [facility] 2020-03-03 2020-03-03 Outpatient R SELF, [facility] [id number] Univers 08:00:00 08:00:00 GADIEL maciely o f [facility] 2020-03-03 2020-03-03 Travel 1.2.840.1 1.2.500.855 6627 5480 Univers 00:00:00 00:00:00 08777.1.1 350.1.13.10 ity of 3.104.2.7 4.2.7.3.698 [place] .3.424012 084.8 Medica l .8 [place] 2020-02-06 2020-02-06 Telephone East, 1.2.840.5 [id number] 781 [id number] Univers 00:00:00 00:00:00 Santiago 65710.1.1 ity of 3.104.2.7 [place] .3.493228 Medica l .8 [place] 2020-01-26 2020-01-26 Emergency Caridad, 1.2.840.3 [id number] 779 07092 Univers 10:03:00 13:05:00 Cynhoward 46128.1.1 ity of 3.104.2.7 [place] .3.700503 Medica l .8 [place] 2020-01-26 2020-01-26 Travel 1.2.840.1 1.2.255.272 8538 0120 Univers 00:00:00 00:00:00 64440.1.1 350.1.13.10 ity of 3.104.2.7 4.2.7.3.698 [place] .3.392664 084.8 Medica l .8 [place] 2020-01-25 2020-01-25 Outpatient R EAST, [facility] [id number] Univers 08:30:00 08:30:00 SANTIAGO ity of [facility] 2020-01-25 2020-01-25 Telemedici [place], 1.2.840.9 [id number] Univers 07:36:49 08:06:49 ne Visit Santiago 29694.1.1 ity of 3.104.2.7 [place] .3.072882 Medica l .8 [place] 2020-01-16 2020-01-16 Outpatient R EAST, [facility] [id number] Univers 08:00:00 08:00:00 SANTIAGO barbosa [facility] 2020-01-16 2020-01-16 Telephone East, 1.2.840.2 [id number] Univers 00:00:00 00:00:00 Santiago 30020.1.1 ity of 3.104.2.7 [place] .3.830297 Medica l .8 [place] 2020-01-14 2020-01-14 Outpatient R SELF, [facility] [id number] Univers 08:00:00 08:00:00 GADIEL rodas [facility] 2019-12-31 2019-12-31 Outpatient R SELF, [facility] [id number] Univers 08:45:00 08:45:00 GADIEL rodas [facility] 2019-10-17 2019-10-17 Outpatient R EAST, [facility] [id number] Univers 08:30:00 08:30:00 SANTIAGO barbosa [facility] 2019-10-12 2019-10-12 Outpatient R EAST, [facility] [id number] Univers 13:00:00 13:00:00 SANTIAGO barbosa [facility] 2019-10-12 2019-10-12 Telemedici [facility], 1.2.840.3 [id number] Univers 07:38:30 08:08:30 ne Visit Santiago 48060.1.1 ity of 3.104.2.7 [place] .3.150268 Medica l .8 [place] 2019-10-08 2019-10-08 Outpatient R SELF, [facility] [id number] Univers 10:15:00 10:15:00 GADIEL rodas [facility] 2019-10-03 2019-10-03 Case Assman, 1.2.840.2 [id number] Univers 00:00:00 00:00:00 Management Michael Corbin 16740.1.1 i ty of 3.104.2.7 [place] .3.868386 Medica l .8 [place] 2019-09-27 2019-09-27 Telephone East, 1.2.840.8 [id number] 755 [id number] Univers 00:00:00 00:00:00 Santiago 82901.1.1 ity of 3.104.2.7 [place] .3.841360 Medica l .8 [place] 2019-09-04 2019-09-04 Refill [place], 1.2.840.3 [id number] Univers 00:00:00 00:00:00 Santiago 83092.1.1 ity of 3.104.2.7 [place] .3.543706 Medica l .8 [place] 2019-07-24 2019-07-24 Outpatient R [facility] [id number] Univers 08:30:00 08:30:00 SANTIAGO ity of [facility] 2019-07-17 2019-07-17 Outpatient R [facility] [id number] Univers 10:00:00 10:00:00 SANTIAGO ity [facility] 2019-06-15 2019-06-15 Telephone East, 1.2.840.4 [id number] [id number] Univers 00:00:00 00:00:00 Santiago 05460.1.1 ity of 3.104.2.7 [place] .3.186906 Medica l .[address] [place] [address] 2019-06-13 2019-06-13 Telephone Team, [facility] 1.2.840.2 [id number] Univers 00:00:00 00:00:00 Health 11114.1.1 ity of [place].104.2.7 [place] .3.233873 Medica l .8 [place] 2019-05-10 2019-05-10 Refill [place], 1.2.840.1 [id number] 022 Univers 00:00:00 00:00:00 Santiago 50039.1.1 ity of 3.104.2.7 [place] .3.399727 Medica l .8 [place] 2019-05-09 2019-05-09 Refill [place], 1.2.840.9 [id number] Univers 00:00:00 00:00:00 [place] 92908.1.1 ity of 3.104.2.7 [place] .3.858004 Medica l .8 [place] 2019-04-30 2019-04-30 Outpatient R SELF, [facility] [id number] Univers 10:15:00 10:33:05 GADIEL macielcharlie o f [facility] 2019-04-18 2019-04-18 Healthcare Specialist Yohan Cardenasrey 1.2.840.1 [id number] Univers 10:00:39 10:44:31 Visit [facility] 35650.1.1 ity of 3.104.2.7 [place] .3.549979 Medica l .8 [place] 2019-04-18 2019-04-18 Outpatient R RONALD, [facility] [id number] Univers 10:00:00 10:44:31 SANTIAGO ity of [facility] 2019-04-18 2019-04-18 Office [place], 1.2.840.7 [id number] 005 Univers 08:27:44 09:53:27 Visit Santiago 05034.1.1 ity of 3.104.2.7 [place] .3.868675 Medica l .8 [place] 2019-04-18 2019-04-18 Orders Doctor 1.2.840.4 [id number] Univers 00:00:00 00:00:00 Only Unassigned, 84593.1.1 ity of [place] 3.104.2.7 [place] .3.797914 Medica l .8 [place] 2019-04-11 2019-04-11 Refill Ronald, 1.2.840.1 [id number] 033 Univers 00:00:00 00:00:00 Santiago 51927.1.1 ity of 3.104.2.7 [place] .3.386431 Medica l .8 [place] 2019-04-09 2019-04-09 Refill Ronlad, 1.2.840.8 [id number] Univers 00:00:00 00:00:00 Santiago 02010.1.1 ity of 3.104.2.7 [place] .3.180971 Medica l .8 [place] 2019-04-03 2019-04-03 Telephone Team, [facility] 1.2.840.0 [id number] Univers 00:00:00 00:00:00 Health 10670.1.1 ity of [place].104.2.7 [place] .3.341476 Medica l .8 [place] 2019-03-27 2019-03-27 Telephone Self, 1.2.840.4 [id number] 723 [id number] Univers 00:00:00 00:00:00 Gadiel 79002.1.1 ity of 3.104.2.7 [place] .3.862684 Medica l .8 [place] 2019-01-17 2019-01-17 Office [place], 1.2.840.1 [id number] Univers 07:37:21 10:32:51 Visit Santiago 36450.1.1 ity of 3.104.2.7 [place] .3.763655 Medica l .8 [place] 2019-01-04 2019-01-12 Office Eveline Hansen 1.2.840.5 [id number] Univers 11:19:32 11:08:05 Visit Mariela 87026.1.1 ity of 3.104.2.7 [place] .3.007222 Medica l .8 [place] 2019-01-10 2019-01-10 Telephone Ephraimcharlie, 1.2.840.1 [id number] 709 [id number] Univers 00:00:00 00:00:00 Eladio Inman 66930.1.1 ity of 3.104.2.7 [place] .3.630851 Medica l .8 [place] 2018-12-18 2018-12-18 Office Geraldine, 1.2.840.3 [id number] Univers 08:48:45 09:13:43 Visit Leyda 33625.1.1 it y of 3.104.2.7 [place] .3.902786 Medica l .8 [place] 2018-10-30 2018-10-30 Telephone East, 1.2.840.1 [id number] [id number] Univers 00:00:00 00:00:00 Santiago 67385.1.1 ity of 3.104.2.7 [place] .3.585860 Medica l .8 [place] 2018-10-23 2018-10-23 Orders Doctor 1.2.840.1 [id number] Univers 00:00:00 00:00:00 Only Unassigned, 08822.1.1 ity of [place] 3.104.2.7 [place] .3.938242 Medica l .8 Branch 2018-10-23 2018-10-23 Nurse Selvin, 1.2.840.2 [id number] Univers 00:00:00 00:00:00 Triage Stefanie 07682.1.1 ity of 3.104.2.7 [place] .3.197832 Medica l .8 [place] 2018-10-23 2018-10-23 Telephone Self, 1.2.840.6 [id number] [id number] Univers 00:00:00 00:00:00 Gadiel 88279.1.1 ity of 3.104.2.7 [place] .3.743552 Medica l .8 [place] 2018-10-20 2018-10-20 Telephone Self, 1.2.840.9 [id number] [id number] Univers 00:00:00 00:00:00 Gadiel 32064.1.1 ity of 3.104.2.7 [place] .3.401005 Medica l .8 [place] Results Test Description Test Time Test Comments Results Result Comments Source COMP. METABOLIC PANEL (51249) 2022-05-06 22:42:55 Test Item Value Reference Range Interpretation Comme nts NA (test code = 1295289273) 137 mmol/L 135-145 K (test code = 6783936697) 3.2 mmol/L 3.5-5.0 L CL (test code = 3267178470) 100 mmol/L 98-108 CO2 TOTAL (test code = 1287701154) 23 mmol/L 23-31 AGAP (test code = 8679564453) 2-16 BUN (test code = 1261401621) 41 mg/dL 7-23 H GLUCOSE (test code = 6092968213) 98 mg/dL 70-110 CREATININE (test code = 1.55 mg/dL 0.50-1.04 H 7524407858) TOTAL BILI (test code = 0.8 mg/dL 0.1-1.7 2004292942) CALCIUM (test code = 5248701435) 8.3 mg/dL 8.6-10.6 L T PROTEIN (test code = 0225072653) 6.9 g/dL 6.3-8.2 ALBUMIN (test code = 1312710401) 3.9 g/dL 3.5-5.0 ALK PHOS (test code = 4614441994) 89 U/L 34-122 ALTv (test code = 1742-6) 101 U/L 5-35 H AST(SGOT) (test code = 1761911342) 203 U/L 13-40 H eGFR (test code = 9413265529) mL/min/1.73m2 KYLE (test code = KYLE) Association [...] tests). Lab Interpretation (test code = Abnormal 72883-4) [facility] WITH [id number] 22:33:52 Test Item Value Reference Range Interpretation [...] RDW-SD (test code = 46.3 fL 39.0-49.9 29677-5) RDW-CV (test code = 13.5 % 12.0-15.5 788-0) PLT (test code = See_Comment L [Automated 777-3) message] The sy stem which generated this result transmitted reference range : 166 - 358 10*3/ ?L. The reference r abbey was not used to interpret this result as normal/abnormal . MPV (test code = 9.5 fL 9.5-12.9 61898-7) NRBC/100 WBC (test See_Comment [Automat ed code = 6771708702) message] The system which generated this result transmitted reference range : 0.0 - 10.0 /100 WBCs. The refer ence range was not u sed to interpret th is result as normal/abnormal . NRBC x10^3 (test code See_Comment [Auto mated = 8862037071) message] The s ystem which generated this result transmitted reference range : 10*3/?L. The reference range was not used to interpret this result as normal/abnormal . GRAN MAT (NEUT) % 58.3 % (test code = 770-8) IMM GRAN % (test code 0.80 % = 2856855593) LYMPH % (test code = 28.1 % 736-9) MONO % (test code = 12.0 % 5905-5) EOS % (test code = 0.5 % 713-8) BASO % (test code = 0.3 % 706-2) GRAN MAT x10^3(ANC) 2.29 10*3/uL 1.88-7.09 (test code = 1104183050) IMM GRAN x10^3 (test 0.03 10*3/uL 0.00-0.06 code = 0264127563) LYMPH x10^3 (test code 1.10 10*3/uL 1.32-3.29 L = 731-0) MONO x10^3 (test code 0.47 10*3/uL 0.33-0.92 = 742-7) EOS x10^3 (test code = 0.03-0.39 L 711-2) BASO x10^3 (test code 0.01-0.07 = 704-7) Lab Interpretation Abnormal (test code = 27725-2) [facility] METABOLIC PANEL (NA, K, CL, CO2, GLUCOSE, BUN, CREATININE, CA)2022-04-22 21:43:42 Test Item Value Reference Range Interpretation Comments NA (test code = 142 mmol/L 135-145 3394696669) K (test code = 3.5 mmol/L 3.5-5.0 9833843508) CL (test code = 106 mmol/L 98-108 2150315295) CO2 TOTAL (test code = 26 mmol/L 23-31 2751585126) AGAP (test code = 2-16 9131559400) BUN (test code = 29 mg/dL 7-23 H 6469687803) GLUCOSE (test code = 84 mg/dL 70-110 2582968855) CREATININE (test code = 1.16 mg/dL 0.50-1.04 H 5390184341) CALCIUM (test code = 8.2 mg/dL 8.6-10.6 L 1129601547) eGFR (test code = mL/min/1.73m2 6672160578) KYLE (test code = KYLE) Association of [...] tests). Lab Interpretation Abnormal (test code = 45802-5) [facility] WITH [id number] 21:33:01 Test Item Value Reference Range Interpretation [...] (test code = 50.7 fL 39.0-49.9 H 86246-2) RDW-CV (test code = 14.6 % 12.0-15.5 788-0) PLT (test code = See_Comment L [Automated 777-3) message] The sy stem which generated this result transmitted reference range : 166 - 358 10*3/ ?L. The reference r abbey was not used to interpret this result as normal/abnormal . MPV (test code = 8.8 fL 9.5-12.9 L 72682-9) NRBC/100 WBC (test See_Comment [Automat ed code = 4797985655) message] The system which generated this result transmitted reference range : 0.0 - 10.0 /100 WBCs. The refer ence range was not u sed to interpret th is result as normal/abnormal . NRBC x10^3 (test code See_Comment [Auto mated = 5981105996) message] The s ystem which generated this result transmitted reference range : 10*3/?L. The reference range was not used to interpret this result as normal/abnormal . GRAN MAT (NEUT) % 70.9 % (test code = 770-8) IMM GRAN % (test code 0.50 % = 1532076817) LYMPH % (test code = 17.4 % 736-9) MONO % (test code = 9.0 % 5905-5) EOS % (test code = 1.7 % 713-8) BASO % (test code = 0.5 % 706-2) GRAN MAT x10^3(ANC) 4.60 10*3/uL 1.88-7.09 (test code = 8754076589) IMM GRAN x10^3 (test 0.03 10*3/uL 0.00-0.06 code = 6717534419) LYMPH x10^3 (test code 1.13 10*3/uL 1.32-3.29 L = 731-0) MONO x10^3 (test code 0.58 10*3/uL 0.33-0.92 = 742-7) EOS x10^3 (test code = 0.11 10*3/uL 0.03-0.39 711-2) BASO x10^3 (test code 0.03 10*3/uL 0.01-0.07 = 704-7) Lab Interpretation Abnormal (test code = 72496-2) [facility] CULTURE [id number] 06:01:07 Test Item Value Reference Range Interpretation Comments Blood Culture-Aerobic No organisms No growth Previo us (test code = 31515-8) isolated prelim inary verified result was Culture [...] Culture-Anaerobic isolated preliminar y (test code = 76861-1) verifi ed result was Culture In Progress [...] CDT Lab Interpretation Normal (test code = 43896-0) [facility] CULTURE [id number] 06:01:07 Test Item Value Reference Range Interpretation Comments Blood Culture-Aerobic No organisms No growth Previo us (test code = 05859-1) isolated prelim inary verified result was Culture [...] Culture-Anaerobic isolated preliminar y (test code = 26773-7) verifi ed result was Culture In Progress [...] CDT Lab Interpretation Normal (test code = 07574-8) [id number]07 Test Item Value Reference Range Interpretation Comments Blood Culture-Aerobic No organisms No growth Previo us (test code = 89220-6) isolated prelim inary verified result was Culture [...] Culture-Anaerobic isolated preliminar y (test code = 62497-6) verifi ed result was Culture In Progress [...] CDT Lab Interpretation Normal (test code = 58259-0) [id number] 10:49:10 Test Item Value Reference Range Interpretation Comments NT-proBNP (test code 2660 pg/mL See_Comment H [Autom ated = 1047236737) message] The system which generated this result transmitted reference range : <=125. The reference range was not used to interpret this result as normal/abnormal . KYLE (test code = KYLE) Biotin has been reported to cause a negative bias, interpret results relative to patient's use of biotin. Lab Interpretation Abnormal (test code = 54419-9) [facility] [id number] 10:49:10 Test Item Value Reference Range Interpretation Comments NT-proBNP (test code 2660 pg/mL See_Comment H [Autom ated = 8437949506) message] The system which generated this result transmitted reference range : <=125. The reference range was not used to interpret this result as normal/abnormal . KYLE (test code = KYLE) Biotin has been reported to cause a negative bias, interpret results relative to patient's use of biotin. Lab Interpretation Abnormal (test code = 82840-9) [facility] (NA, K, CL, CO2, GLUCOSE, BUN, CREATININE, [place])2022-02-15 10:44:07 Test Item Value Reference Range Interpretation Comments NA (test code = 134 mmol/L 135-145 L 8089458574) K (test code = 3.2 mmol/L 3.5-5 L 1638403667) CL (test code = 98 mmol/L 98-108 4390183585) CO2 TOTAL (test code = 27 mmol/L 23-31 3518954236) AGAP (test code = 2-16 9558633859) BUN (test code = 19 mg/dL 7-23 6407792164) GLUCOSE (test code = 102 mg/dL 70-110 4179869689) CREATININE (test code = 0.95 mg/dL 0.5-1.04 5868044278) CALCIUM (test code = 8.5 mg/dL 8.6-10.6 L 6081205534) eGFR (test code = mL/min/1.73m2 5631137874) KYLE (test code = KYLE) Association of [...] tests). Lab Interpretation Abnormal (test code = 00250-2) [facility] Test Item Value Reference Range Interpretation Comments MAGNESIUM (test code = 1482421567) 1.8 mg/dL 1.7-2.4 Lab Interpretation (test code = Normal 04622-0) [facility]07 Test Item Value Reference Range Interpretation Comments MAGNESIUM (test code = 3294525753) 1.8 mg/dL 1.7-2.4 Lab Interpretation (test code = Normal 65565-8) [facility] (NA, K, CL, CO2, GLUCOSE, BUN, CREATININE, [place])2022-02-15 10:44:07 Test Item Value Reference Range Interpretation Comments NA (test code = 134 mmol/L 135-145 L 0325861418) K (test code = 3.2 mmol/L 3.5-5.0 L 2541020779) CL (test code = 98 mmol/L 98-108 3872123357) CO2 TOTAL (test code = 27 mmol/L 23-31 3509985806) AGAP (test code = 2-16 6106907863) BUN (test code = 19 mg/dL 7-23 2649619471) GLUCOSE (test code = 102 mg/dL 70-110 7499622688) CREATININE (test code = 0.95 mg/dL 0.50-1.04 2203294087) CALCIUM (test code = 8.5 mg/dL 8.6-10.6 L 8388122052) eGFR (test code = mL/min/1.73m2 8881862680) KYLE (test code = KYLE) Association of [...] tests). Lab Interpretation Abnormal (test code = 68813-8) [facility] WITH [id number] 10:12:06 Test Item Value Reference Range Interpretation [...] RDW-SD (test code = 47.8 fL 39-49.9 00975-1) RDW-CV (test code = 15.2 % 12-15.5 788-0) PLT (test code = See_Comment L [Automated 777-3) message] The sy stem which generated this result transmitted reference range : 166 - 358 10*3/ ?L. The reference r abbey was not used to interpret this result as normal/abnormal . MPV (test code = 8.9 fL 9.5-12.9 L 27361-4) NRBC/100 WBC (test See_Comment [Automat ed code = 7508024950) message] The system which generated this result transmitted reference range : 0.0 - 10.0 /100 WBCs. The refer ence range was not u sed to interpret th is result as normal/abnormal . NRBC x10^3 (test code See_Comment [Auto mated = 9415881169) message] The s ystem which generated this result transmitted reference range : 10*3/?L. The reference range was not used to interpret this result as normal/abnormal . GRAN MAT (NEUT) % 65.9 % (test code = 770-8) IMM GRAN % (test code 0.30 % = 4036244611) LYMPH % (test code = 21.0 % 736-9) MONO % (test code = 10.1 % 5905-5) EOS % (test code = 2.4 % 713-8) BASO % (test code = 0.3 % 706-2) GRAN MAT x10^3(ANC) 2.49 10*3/uL 1.88-7.09 (test code = 4203215372) IMM GRAN x10^3 (test 0-0.06 code = 4796786639) LYMPH x10^3 (test code 0.79 10*3/uL 1.32-3.29 L = 731-0) MONO x10^3 (test code 0.38 10*3/uL 0.33-0.92 = 742-7) EOS x10^3 (test code = 0.09 10*3/uL 0.03-0.39 711-2) BASO x10^3 (test code 0.01-0.07 = 704-7) Lab Interpretation Abnormal (test code = 42892-8) [facility] WITH [id number] 10:12:06 Test Item Value Reference Range Interpretation [...] RDW-SD (test code = 47.8 fL 39.0-49.9 03282-4) RDW-CV (test code = 15.2 % 12.0-15.5 788-0) PLT (test code = See_Comment L [Automated 777-3) message] The sy stem which generated this result transmitted reference range : 166 - 358 10*3/ ?L. The reference r abbey was not used to interpret this result as normal/abnormal . MPV (test code = 8.9 fL 9.5-12.9 L 53256-0) NRBC/100 WBC (test See_Comment [Automat ed code = 0528530455) message] The system which generated this result transmitted reference range : 0.0 - 10.0 /100 WBCs. The refer ence range was not u sed to interpret th is result as normal/abnormal . NRBC x10^3 (test code See_Comment [Auto mated = 2690522469) message] The s ystem which generated this result transmitted reference range : 10*3/?L. The reference range was not used to interpret this result as normal/abnormal . GRAN MAT (NEUT) % 65.9 % (test code = 770-8) IMM GRAN % (test code 0.30 % = 0907847222) LYMPH % (test code = 21.0 % 736-9) MONO % (test code = 10.1 % 5905-5) EOS % (test code = 2.4 % 713-8) BASO % (test code = 0.3 % 706-2) GRAN MAT x10^3(ANC) 2.49 10*3/uL 1.88-7.09 (test code = 3801121246) IMM GRAN x10^3 (test 0.00-0.06 code = 3264291105) LYMPH x10^3 (test code 0.79 10*3/uL 1.32-3.29 L = 731-0) MONO x10^3 (test code 0.38 10*3/uL 0.33-0.92 = 742-7) EOS x10^3 (test code = 0.09 10*3/uL 0.03-0.39 711-2) BASO x10^3 (test code 0.01-0.07 = 704-7) Lab Interpretation Abnormal (test code = 38297-6) [facility] WITH [id number] 11:18:28 Test Item Value Reference Range Interpretation [...] RDW-SD (test code = 49.5 fL 39-49.9 62006-6) RDW-CV (test code = 15.5 % 12-15.5 788-0) PLT (test code = See_Comment L [Automated 777-3) message] The sy stem which generated this result transmitted reference range : 166 - 358 10*3/ ?L. The reference r abbey was not used to interpret this result as normal/abnormal . MPV (test code = 11.4 fL 9.5-12.9 31902-7) IPF % (test code = 8.7 % 1.3-7.7 H Platelet count 5064187387) measured by fluorescence method. NRBC/100 WBC (test See_Comment [Automat ed code = 3966029143) message] The system which generated this result transmitted reference range : 0.0 - 10.0 /100 WBCs. The refer ence range was not u sed to interpret th is result as normal/abnormal . NRBC x10^3 (test code See_Comment [Auto mated = 8658256628) message] The s ystem which generated this result transmitted reference range : 10*3/?L. The reference range was not used to interpret this result as normal/abnormal . GRAN MAT (NEUT) % 62.0 % (test code = 770-8) IMM GRAN % (test code 0.80 % = 2544356972) LYMPH % (test code = 22.2 % 736-9) MONO % (test code = 9.6 % 5905-5) EOS % (test code = 5.1 % 713-8) BASO % (test code = 0.3 % 706-2) GRAN MAT x10^3(ANC) 2.21 10*3/uL 1.88-7.09 (test code = 9517561260) IMM GRAN x10^3 (test 0.03 10*3/uL 0-0.06 code = 3000981582) LYMPH x10^3 (test code 0.79 10*3/uL 1.32-3.29 L = 731-0) MONO x10^3 (test code 0.34 10*3/uL 0.33-0.92 = 742-7) EOS x10^3 (test code = 0.18 10*3/uL 0.03-0.39 711-2) BASO x10^3 (test code 0.01-0.07 = 704-7) POLYCHROMASIA (test 2+ See_Comment [Automa arpit code = 63883-9) message] The system which generated this result [...] . Lab Interpretation Abnormal (test code = 01918-1) [facility] METABOLIC PANEL (NA, K, CL, CO2, GLUCOSE, BUN, CREATININE, [place])2022-02-13 10:39:07 Test Item Value Reference Range Interpretation Comments NA (test code = 136 mmol/L 135-145 9792626503) K (test code = 4.1 mmol/L 3.5-5 2828961122) CL (test code = 102 mmol/L 98-108 3874288625) CO2 TOTAL (test code = 27 mmol/L 23-31 4645312446) AGAP (test code = 2-16 2398024386) BUN (test code = 22 mg/dL 7-23 0329408199) GLUCOSE (test code = 94 mg/dL 70-110 1351669760) CREATININE (test code = 0.94 mg/dL 0.5-1.04 9321465053) CALCIUM (test code = 8.1 mg/dL 8.6-10.6 L 0167350809) eGFR (test code = mL/min/1.73m2 3000772902) KYLE (test code = KYLE) Association of [...] tests). Lab Interpretation Abnormal (test code = 02251-5) [facility] 01:50:10 Test Item Value Reference Range Interpretation Comments Height (test code = in 6653777322) Weight (test code = lbs 9251680858) Systolic BP (test code mmHg = 9814623345) Diastolic BP (test code mmHg = 7742191672) Heart Rate (test code = bpm 7913936020) BSA (test code = 1.85 m2 9249096971) IVS (test code = 1.22 cm 5589346703) Interventricular Septum 1.22 cm Diastolic Thickness by 2D (test code = 1676193) LVIDD (test code = 5.00 cm 7875356542) Left Ventricular End 117.9 mL Diastolic Volume by Teichholz Method (test code = 0784780) LVPWD (test code = 1.22 cm 6270465311) PW (test code = 1.22 cm 0.6-1.6 9085893674) EF(Teich) (test code = 74.60 % 4447849134) LVIDS (test code = 2.80 cm 1061548215) Left Ventricular End 29.9 mL Systolic Volume by Teichholz Method (test code = 9515861) FS (test code = 44 % 4805936497) EF - 2D (test code = 74.60 % 01247554) LVOT diameter (test 2.16 cm code = 9701533491) LVOT area (test code = 3.70 cm2 0898558913) Ao root diam (test code 3.40 cm = 7943771014) Aortic root (test code 3.4 cm = 4428319071) Ao root annulus (test 3.4 cm code = 5571931133) LA size (test code = 3.4 cm 2437786277) TR Peak Spencer (test code 330.0 cm/s = 3754522948) Triscuspid Valve mmHg Regurgitation Peak Gradient (test code = 9250815654) PV REGURGITATION PEAK mmHg GRADIENT (test code = 1877975762) PI dec slope (test code 137.20 cm/s2 = 0590600601) LAV(MOD-sp4) (test code 102.90 mL = 9310272367) MV Peak E Spencer (test 84.1 cm/s code = 3893605550) MV Peak A Spencer (test 40.1 cm/s code = 3933215547) E/A ratio (test code = ratio 1170976216) MV valve area p 1/2 3.70 cm2 method (test code = 2517383251) MV dec slope (test code 413.00 cm/s2 = 4733636946) MV P1/2t max spencer (test 83.70 cm/s code = 6120466583) MV Prop V (test code = 41.80 cm/s 8767018828) Tapse (test code = 1.83 cm 4444619978) LVOT stroke volume 96.90 cm3 (test code = 5592116992) LVOT peak spencer (test 125.5 cm/s code = 3953262209) LVOT mn grad (test code mmHg = 6764616278) AV LVOT peak gradient mmHg (test code = 4049895857) LVOT peak VTI (test 26.4 cm code = 8530954591) LV V1 mean (test code = 78.10 cm/s 7494634837) Aortic valve mean 103.7 cm/s velocity (test code = 9680203037) Ao peak spencer (test code 165.6 cm/s = 2805422546) Ao VTI (test code = 37.2 cm 1969460807) AV area by cont VTI 2.6 cm2 (test code = 6034999260) AV area peak spencer (test 2.8 cm2 code = 5777706920) Ao max PG (test code = 11.00 mm[Hg] 3412423781) AV peak gradient (test mmHg code = 2607032819) AV valve area (test 2.60 cm2 code = 0532611065) AV mean gradient (test mmHg code = 3968466908) LA Volume Index (BP) 55.2 mL/m2 (test code = 0385997560) LA volume (BP) (test 102.1 mL code = 4895106916) LAV(MOD-sp2) (test code 86.10 mL = 8659443151) A2C EF (test code = 61.20 % 8064527641) EF(sp2-el) (test code = 61.60 % 6390666432) SV(MOD-sp2) (test code 47.10 mL = 7956959912) LV Diastolic Volume 70.7 mL (BP) (test code = 0070138725) A4C EF (test code = 53.00 % 2831359052) EF(MOD-bp) (test code = 56.70 % 0683402554) EF(sp4-el) (test code = 53.90 % 4154343541) LV Systolic Volume (BP) 30.6 mL (test code = 9657922800) SV(MOD-bp) (test code = 40.10 mL 1665118323) SV(MOD-sp4) (test code 32.40 mL = 6485326889) SV(sp4-el) (test code = 33.10 mL 1043536940) EF (test code = 9537303826) Left Ventricular Stroke 40.1 mL Volume by 2-D Biplane-MOD (test code = 9330306) LV Diastolic Volume 38.2 mL/m2 Index (BP) (test code = 5119073008) LV Systolic Volume 16.5 mL/m2 Index (BP) (test code = 4292733728) Radiology Study observation (narrative) (test code = 19809-9) KYLE (test code = KYLE) ?Left?Ventricle: Left [...] left ventricular wall motion is normal. [id number] 05:45:01 Test Item Value Reference Interpretation Comments Range TROPONIN I (test See_Comment [Automated code = 0173913851) message] The system which generated this result [...] biotin. Lab Interpretation Normal (test code = 39058-6) [facility] [id number] 05:41:40 Test Item Value Reference Range Interpretation Comments NT-proBNP (test code 4250 pg/mL See_Comment H [Autom ated = 8755013742) message] The system which generated this result transmitted reference range : <=125. The reference range was not used to interpret this result as normal/abnormal . KYLE (test code = KYLE) Biotin has been reported to cause a negative bias, interpret results relative to patient's use of biotin. Lab Interpretation Abnormal (test code = 66111-8) [facility] [id number] 05:35:21 Test Item Value Reference Range Interpretation Comments APTT Patient (test See_Comment [Automat ed code = 3173-2) message] The system which generated this result transmitted reference range : 23 - 38 Seconds . The reference range was not used to interpr et this result as normal/abnormal . KYLE (test code = KYLE) The [facility] patient population mean normal value for aPTT is 30 seconds. Lab Interpretation Normal (test code = 92664-2) [facility] [id number] 05:35:21 Test Item Value Reference Range Interpretation Comments APTT Patient (test See_Comment [Automat ed code = 3173-2) message] The system which generated this result transmitted reference range : 23 - 38 Seconds . The reference range was not used to interpr et this result as normal/abnormal . KYLE (test code = KYLE) The [facility] patient population mean normal value for aPTT is 30 seconds. Lab Interpretation Normal (test code = 93798-9) [facility] / [id number] 05:33:21 Test Item Value Reference Range Interpretation [...] tions. Lab Interpretation (test Normal code = 54285-6) [facility] MET[facility]OLIC PAN[facility] (76474)2022-02-11 05:33:21 Test Item Value Reference Range Interpretation Comments NA (test code = 137 mmol/L 135-145 8776117622) K (test code = 4.3 mmol/L 3.5-5 9540490020) CL (test code = 103 mmol/L 98-108 5652835964) CO2 TOTAL (test code = 25 mmol/L 23-31 2059806545) AGAP (test code = 2-16 7981468778) BUN (test code = 19 mg/dL 7-23 0226592584) GLUCOSE (test code = 120 mg/dL 70-110 H 6237974523) CREATININE (test code = 1.15 mg/dL 0.5-1.04 H 4215276550) TOTAL BILI (test code = 0.9 mg/dL 0.1-1.9 7557368961) CALCIUM (test code = 8.9 mg/dL 8.6-10.6 1232888857) T PROTEIN (test code = 6.6 g/dL 6.3-8.2 1281045042) ALBUMIN (test code = 4.0 g/dL 3.5-5 1188788164) ALK PHOS (test code = 73 U/L 34-122 4276089863) ALTv (test code = 18 U/L 5-35 1742-6) AST(SGOT) (test code = 31 U/L 13-40 5967362901) eGFR (test code = mL/min/1.73m2 6660740211) YKLE (test code = KYLE) Association of Glomerular [...] tests). Lab Interpretation Abnormal (test code = 23521-8) [facility]. METABOLIC PANEL (23349)2022-02-11 05:33:21 Test Item Value Reference Range Interpretation Comments NA (test code = 137 mmol/L 135-145 2466260279) K (test code = 4.3 mmol/L 3.5-5.0 1077621920) CL (test code = 103 mmol/L 98-108 3469112091) CO2 TOTAL (test code = 25 mmol/L 23-31 5661639336) AGAP (test code = 2-16 1929489948) BUN (test code = 19 mg/dL 7-23 8455387162) GLUCOSE (test code = 120 mg/dL 70-110 H 9428184731) CREATININE (test code = 1.15 mg/dL 0.50-1.04 H 1438029595) TOTAL BILI (test code = 0.9 mg/dL 0.1-1.3 8186175605) CALCIUM (test code = 8.9 mg/dL 8.6-10.6 4877408195) T PROTEIN (test code = 6.6 g/dL 6.3-8.2 5121050978) ALBUMIN (test code = 4.0 g/dL 3.5-5.0 3814369659) ALK PHOS (test code = 73 U/L 34-122 4049930667) ALTv (test code = 18 U/L 5-35 1742-6) AST(SGOT) (test code = 31 U/L 13-40 4120525014) eGFR (test code = mL/min/1.73m2 5642491286) KYLE (test code = KYLE) Association of [...] tests). Lab Interpretation Abnormal (test code = 79581-1) [facility] / [id number] 05:33:21 Test Item Value Reference Range Interpretation [...] tions. Lab Interpretation (test Normal code = 99040-4) [facility] WITH [id number] 05:14:37 Test Item Value Reference Range Interpretation Comments WBC (test code = See_Comment [Automated 7590-2) message] The sy stem which generated this [...] RDW-SD (test code = 47.9 fL 39-49.9 44766-5) RDW-CV (test code = 14.9 % 12-15.5 788-0) PLT (test code = See_Comment L [Automated 777-3) message] The sy stem which generated this result transmitted reference range : 166 - 358 10*3/ ?L. The reference r abbey was not used to interpret this result as normal/abnormal . MPV (test code = 9.1 fL 9.5-12.9 L 85935-5) NRBC/100 WBC (test See_Comment [Automat ed code = 2570912932) message] The system which generated this result transmitted reference range : 0.0 - 10.0 /100 WBCs. The refer ence range was not u sed to interpret th is result as normal/abnormal . NRBC x10^3 (test code See_Comment [Auto mated = 4128074322) message] The s ystem which generated this result transmitted reference range : 10*3/?L. The reference range was not used to interpret this result as normal/abnormal . GRAN MAT (NEUT) % 78.5 % (test code = 770-8) IMM GRAN % (test code 0.20 % = 8384158749) LYMPH % (test code = 11.6 % 736-9) MONO % (test code = 8.4 % 5905-5) EOS % (test code = 1.1 % 713-8) BASO % (test code = 0.2 % 706-2) GRAN MAT x10^3(ANC) 3.45 10*3/uL 1.88-7.09 (test code = 6431679416) IMM GRAN x10^3 (test 0-0.06 code = 4588702673) LYMPH x10^3 (test code 0.51 10*3/uL 1.32-3.29 L = 731-0) MONO x10^3 (test code 0.37 10*3/uL 0.33-0.92 = 742-7) EOS x10^3 (test code = 0.05 10*3/uL 0.03-0.39 711-2) BASO x10^3 (test code 0.01-0.07 = 704-7) Lab Interpretation Abnormal (test code = 20995-2) [facility] Coronavirus 2019 [id number] 18:08:00 Test Item Value Reference Range Interpretation [...] det ection of nucleic acids f rom wzjQGIA-CcL-8 v irus and diagnosis of SA RS-CoV-2 virusinfection. It is an Emergency Use Authorization ( EUA) testauthorized by the U.S. FDA. BASIC METABOLIC [id number] 09:37:00 Test Item Value Reference Range Interpretation [...] = 9.0 mg/dL 8.0-10.5 N CA) PROTHROMBIN [id number] 09:32:00 Test Item Value Reference Range Interpretation [...] (to prevent recurrent infar ct). 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 [facility] : 1955 Sex: F FAX: RobinUrmilaBibiana DanielFrancisco [facility] [phone] [place]: St: ADM FAX: Mike Scales MD [phone] FAX: Bahman Chopra [phone] Name: MARJAN FLEMING [facility] : 1955 Age/S: 66/F [address] [place] [address] Unit #: [id number] Loc: KWABENA Bernstein [address] Phys: Bahman ChopraP Acct: [id number] Dis Date: Status: ADM IN PHONE #: [phone] Exam Date: 06/17/2021 1320 FAX #: [phone] Reason: WATCHMAN EXAMS: CPT CODE: [id number] XR CHEST 1 V 67925 PROCEDURE INFORMATION: Exam: XR Chest Exam date [...] Chopra Technologist: RT Taylor(R) Trnscrd Date/Time/By: 06/17/2021 (3864) : By:Susanna Orig Print D/T: S: 06/17/2021 (7643) PAGE 1 Signed ReportCOVID 19 Asymptomatic IH [id number] 12:29:00 Test Item Value Reference Range Interpretation [...] high or waivedcomplexit y tests. BASIC METABOLIC [id number] 11:37:00 Test Item Value Reference Range Interpretation [...] code = 9.0 mg/dL 8.0-10.5 N CA) [id number] 11:37:00 Test Item Value Reference Range Interpretation Comments PREALBUMIN (test code = PREALB) 24.3 mg/dL 16.0-40.0 N PROTHROMBIN [id number] 11:03:00 Test Item Value Reference Range Interpretation [...] (to prevent recurrent infar ct). CBC W/AUTO [id number] 10:59:00 Test Item Value Reference Range Interpretation [...] 3/uL 0.0-0.1 N NRBC#) - CHEST 2 [id number] 00:00:00 [facility] : 1955 Sex: F FAX: Carmenza Kelly DO [phone] [place]: St: PRE FAX: Mike Scales MD [phone] Name: MARJAN FLEMING [facility] [place] : 1955 Age/S: 66/F [address] [place], [place] [address]vd Unit #: [id number] Loc: [place] [address] Phys: Mike Lund MD Acct: [id number] Dis Date: Status: PRE SDC PHONE #: [phone] Exam Date : 06/16/2021 1120 FAX #: [phone] Reason: PREOP EXAMS: CPT CODE: [id number] XR CHEST 2 V 21022 PROCEDURE INFORMATION: Exam: XR Chest Exam date [...] Selene Collins D.O. CC: Carmenza Rahman DO; Miek Lund MD Technologist: RT Andree(R) Trnscrd Date/Time/By: 06/16/2021 (1134) : By: [email or web address] Orig Print D/T: S: 06/16/2021 (4296) PAGE 1 Signed ReportGastrointestinal kpwgh2535-15-28 04:35:05 Test Item Value Reference Interpretation Comments [...] Rotavirus PCR (test Not Detected code = 7936601) Salmonella PCR (test Not Detected code = [...] PCR Not Detected (test code = 7124) [facility] ckdmlmf8286-10-33 19:30:47 Test Item Value Reference Range Interpretation Comments Case number (test [id number] code = 6120763) Surgical pathology See link below for PDF report (test code = Lab Report 2255) Result status (test This is Supplemental code = 3028036) Report for [id number] [facility]2021-04-09 16:31:00 Test Item Value Reference Range Interpretation Comments POC Activated Clotting Time (test code 153 s = POC Activated Clotting Time) [facility]SvntrfzAQEODFYBOK7309-33-11 16:31:00 Test Item Value Reference Range Interpretation Comments POC Activated Clotting Time (test code 153 s = POC Activated Clotting Time) [facility] HospitalZstfkbtNKIGPUTKLT1878-17-35 16:31:00 Test Item Value Reference Range Interpretation Comments POC Activated Clotting Time (test code 153 s = POC Activated Clotting Time) [facility] HospitalOgkctakHAVULGUNAK7995-49-58 16:31:00 Test Item Value Reference Range Interpretation Comments POC Activated Clotting Time (test code 153 s = POC Activated Clotting Time) [facility] HospitalPqbujigZRXNKYBSBT2481-10-26 16:31:00 Test Item Value Reference Range Interpretation Comments POC Activated Clotting Time (test code 153 s = POC Activated Clotting Time) [facility] HospitalVopfmolGNIKOHGSCF8665-20-60 16:31:00 Test Item Value Reference Range Interpretation Comments POC Activated Clotting Time (test code 153 s = POC Activated Clotting Time) [facility] HospitalZuhsywpFIPRQKESPK8034-76-83 16:31:00 Test Item Value Reference Range Interpretation Comments POC Activated Clotting Time (test code 153 s = POC Activated Clotting Time) [place] [id number] 14:37:00 Test Item Value Reference Range Interpretation Comments POC Activated Clotting Time (test code 454 s = POC Activated Clotting Time) [facility] HospitalMmqhvinCXJDWFQGNS5855-33-46 14:37:00 Test Item Value Reference Range Interpretation Comments POC Activated Clotting Time (test code 454 s = POC Activated Clotting Time) [facility] HospitalPlplqejMWAHXCCJBK0120-25-82 14:37:00 Test Item Value Reference Range Interpretation Comments POC Activated Clotting Time (test code 454 s = POC Activated Clotting Time) [facility] HospitalPxgbmzjTNGHECDCKW0676-12-85 14:37:00 Test Item Value Reference Range Interpretation Comments POC Activated Clotting Time (test code 454 s = POC Activated Clotting Time) [facility] [id number] 14:37:00 Test Item Value Reference Range Interpretation Comments POC Activated Clotting Time (test code 454 s = POC Activated Clotting Time) [facility] [id number] 14:37:00 Test Item Value Reference Range Interpretation Comments POC Activated Clotting Time (test code 454 s = POC Activated Clotting Time) [facility] [id number] 14:37:00 Test Item Value Reference Range Interpretation Comments POC Activated Clotting Time (test code 454 s = POC Activated Clotting Time) [facility] [id number] 14:13:00 Test Item Value Reference Range Interpretation Comments POC Activated Clotting Time (test code 354 s = POC Activated Clotting Time) [facility] [id number] 14:13:00 Test Item Value Reference Range Interpretation Comments POC Activated Clotting Time (test code 354 s = POC Activated Clotting Time) [facility]UidyasjAYEFVGZCUA8715-70-60 14:13:00 Test Item Value Reference Range Interpretation Comments POC Activated Clotting Time (test code 354 s = POC Activated Clotting Time) [facility] HospitalKdfcfteRNBDFRWJTK2170-17-25 14:13:00 Test Item Value Reference Range Interpretation Comments POC Activated Clotting Time (test code 354 s = POC Activated Clotting Time) [facility]VlyvfndRCFEWEYHTJ3430-28-58 14:13:00 Test Item Value Reference Range Interpretation Comments POC Activated Clotting Time (test code 354 s = POC Activated Clotting Time) [facility] CampusUqpwgoePUQCKMCXII5092-64-46 14:13:00 Test Item Value Reference Range Interpretation Comments POC Activated Clotting Time (test code 354 s = POC Activated Clotting Time) [facility] CampusMpirbdyVRYWNKWHLP3702-83-35 14:13:00 Test Item Value Reference Range Interpretation Comments POC Activated Clotting Time (test code 354 s = POC Activated Clotting Time) [facility] BANK SODOPRK6861-96-43 10:37:00Negative (08/29/20 5:37 AM) [facility] ABVJI1392-09-64 10:37:77571Vbxigmeh HermannCHEM PANEL 2020-08-29 10:37:0028[facility] UPYMV4491-19-91 10:37:001.01[facility] FTCLV8636-21-05 10:37:93323Nhtsymaf [facility]annCHEM IHHLS9828-18-26 10:37:003.8[facility] HEJSK1868-14-04 10:37:99541Tljegynz [facility]annCHEM BMEIZ7441-35-13 10:37:0028[facility] PWKXG6832-30-33 10:37:009.8 [facility] RBKEJ0027-84-21 10:37:0011.8[facility]annCHE[facility] PANEL 2020-08-29 10:37:0059[facility]annCHE[facility] OWYHR5874-29-12 10:37:002.9[facility] FesnfsySIPEIHOPPF5203-87-49 10:37:006.8[facility] IwkzomiBTDBDWTEYI3114-34-31 10:37:004.47[facility] QfuosniWSECEPSUNJ6703-18-05 10:37:0010.6[facility] XFVJRPSATS6049-75-23 10:37:0034.0[facility] NqnxvooXJCVFVZOTD7625-53-58 10:37:00 76.1[facility] CfxyyjzQYXDESKDYA3333-99-20 10:37:00 Test Item Value Reference Range Interpretation Comments MCH (test code = MCH) 23.8 pg 27.0-31.0 [facility] AprbpxbTTXZPWEBIH7028-15-60 10:37:0031.3[facility]annHEMATOLOGY 2020-08-29 10:37:0018.2[facility] BdvrczzUXNFZCTQQV1651-07-98 10:37:32009Piczzfec HtwtvjkCMFWKSWWHD8116-47-70 10:37:007.5[facility] DsibzcjANGTPUXXNO6408-26-96 10:37:00 Test Item Value Reference Range Interpretation Comments PT (test code = PT) 12.8 s 12.0-14.7 [facility] VrummahAORJLWJFXC1468-82-94 10:37:00 Test Item Value Reference Range Interpretation Comments INR (test code = INR) 0.97 1 0.85-1.17 [facility] PmwstcoNIZYQZZGIG8540-94-24 10:37:00 Test Item Value Reference Range Interpretation Comments PTT (test code = PTT) 25.0 s 22.9-35.8 [facility] XbnjtpiLYJNTXLFDW5528-70-55 10:37:0070.5[facility]annHEMATOLOGY 2020-08-29 10:37:0018.8[facility] QijmgifLNJKPDWRFY5255-06-90 10:37:009.5[facility] VrxgqjoFMFPYDHKII8959-15-41 10:37:000.9[facility] EyffkihPPKEPCIQBA4035-23-28 10:37:000.3[facility] JqvcdvoJLUXYCVMPB8317-52-41 10:37:004.8[facility] BVBSHIKCTW7616-29-77 10:37:001.3[facility] SpvntrwFAYLJBRLVM6582-77-39 10:37:000.6 [facility] HchygzrYIQJBMHHJP7257-00-58 10:37:000.1[facility]annHEMATOLOGY 2020-08-29 10:37:001+ *ABN*(08/29/20 5:37 AM)[facility] MdrayzzMFUHRMBLQR6574-79-19 10:37:00Not Detected (08/29/20 5:37 AM)[facility]annBL[facility]OD BANK RESULTS 2020-08-29 10:37:00Negative (08/29/20 5:37 AM)[facility]annCHE[facility] NPEAI7883-03-99 10:37:50875Nonvyhmx HermannCHEM NHEUH2162-00-32 10:37:0028[facility]annCHEM QUEUA6243-21-06 10:37:001.01[facility]annCHEM OHFYS5118-85-47 10:37:81772 [facility] AIYPP5438-59-75 10:37:003.8[facility]annCHEM PANEL 2020-08-29 10:37:54192Khyjabkl HermannCHEM WSJME1154-77-30 10:37:0028[facility]CHE[facility] KPKKM5744-50-74 10:37:009.8[facility]CHE[facility] UIXKU5006-84-78 10:37:0011.8[facility]annCHE[facility] UIFTZ6686-60-47 10:37:0059[facility]CHE[facility] HSFCV3994-02-32 10:37:002.9[facility] WoudzjeHRABUWEKVT0368-19-61 10:37:006.8 [facility] GmxzcolVNEGJIJESA4845-25-78 10:37:004.47[facility]annHEMATOLOGY 2020-08-29 10:37:0010.6[facility] PbyfpmaTOGULFKKGW8200-16-53 10:37:0034.0[facility] McukdmaWVWYCGJTZL2453-93-63 10:37:0076.1[facility] VfiuzutIHFMPZUAAH0827-82-39 10:37:00 Test Item Value Reference Range Interpretation Comments MCH (test code = MCH) 23.8 pg 27.0-31.0 [facility] UtttqjyAXEDIZXSQY7963-71-74 10:37:0031.3[facility]annHEMATOLOGY 2020-08-29 10:37:0018.2[facility] MyvxqzmSDIRETRERC8382-98-61 10:37:81161Lezebjpa MpjjqpkYHVHMQVFZM1268-14-88 10:37:007.5[facility] XcfpshmYYJAMQXOUZ5836-76-05 10:37:00 Test Item Value Reference Range Interpretation Comments PT (test code = PT) 12.8 s 12.0-14.7 [facility] BmuklbyIFPJXAFPQB1921-08-09 10:37:00 Test Item Value Reference Range Interpretation Comments INR (test code = INR) 0.97 1 0.85-1.17 [facility] AtdbuitZGKECAODGI1001-33-57 10:37:00 Test Item Value Reference Range Interpretation Comments PTT (test code = PTT) 25.0 s 22.9-35.8 [facility] GnmadheWUTYGAKYAU7642-52-91 10:37:0070.5[facility]annHEMATOLOGY 2020-08-29 10:37:0018.8[facility] SorvmfoZFUTFVAMSP9459-07-51 10:37:009.5[facility] AxlbvenAWCQNICEPG9592-18-17 10:37:000.9[facility] FvruwcjVKZJRGPGJN0343-33-22 10:37:000.3[facility] YxnnanbMDPJZFQUSU3263-52-84 10:37:004.8[facility] CZYHTVTONF8107-62-29 10:37:001.3[facility] XudedneHBZQCVAGFR7962-48-05 10:37:000.6 [facility] CjcrswoXPHDCTVWCH4687-90-81 10:37:000.1[facility]annHEMATOLOGY 2020-08-29 10:37:001+ *ABN*(08/29/20 5:37 AM)[facility] NgdezmeQMYXMAXJNP4120-99-21 10:37:00Not Detected (08/29/20 5:37 AM)[facility] HermannBLOOD BANK RESULTS 2020-08-29 10:37:00Negative (08/29/20 5:37 AM)[facility]annCHEM EHDTG1957-21-15 10:37:21830Jeygcjck HermannCHEM ENYRI4399-18-56 10:37:0028[facility]annCHE[facility] XDSCF7851-30-87 10:37:001.01[facility]annCHE[facility] KVORW2339-72-18 10:37:83941 [facility]annCHE[facility] UVMCD4748-21-06 10:37:003.8[facility]annCHEM PANEL 2020-08-29 10:37:64984Iqkeqjqq HermannCHEM QJPZE1589-52-56 10:37:0028[facility]annCHE[facility] NXQVA8022-15-50 10:37:009.8[facility]annCHEM FBJIC0875-65-22 10:37:0011.8[facility]annCHEM IALQX8992-51-55 10:37:0059[facility]annCHEM XBRRH2145-32-20 10:37:002.9[facility] YcjntimVZJUCTWNNZ0217-81-18 10:37:006.8 [facility] JmhhndaXLWWYINHIV6129-74-25 10:37:004.47[facility]annHEMATOLOGY 2020-08-29 10:37:0010.6[facility] FvxhahbERBQWKMNFK1240-04-36 10:37:0034.0[facility] MmhhymtCFFUMFTCOI2859-99-70 10:37:0076.1[facility] ZkivcoeHKCUEWTSYN7955-86-60 10:37:00 Test Item Value Reference Range Interpretation Comments MCH (test code = MCH) 23.8 pg 27.0-31.0 [facility] XzsvtvjNWLZIXRZTI3484-06-32 10:37:0031.3[facility]annHEMATOLOGY 2020-08-29 10:37:0018.2[facility] DinmqysGDSQXDXLFJ7296-78-39 10:37:54215Cyikqmxb JmfnfzyGGDBNPXZZJ3490-91-12 10:37:007.5[facility] JzmvukmCOWPSJGXNN4928-67-68 10:37:00 Test Item Value Reference Range Interpretation Comments PT (test code = PT) 12.8 s 12.0-14.7 [facility] EariefjZPRWBQWGZF3221-11-50 10:37:00 Test Item Value Reference Range Interpretation Comments INR (test code = INR) 0.97 1 0.85-1.17 [facility] AnmlphcCQHLLAZVVD2163-08-81 10:37:00 Test Item Value Reference Range Interpretation Comments PTT (test code = PTT) 25.0 s 22.9-35.8 [facility] HittwtcGPDDYNFVSB3130-20-96 10:37:0070.5[facility]annHEMATOLOGY 2020-08-29 10:37:0018.8[facility] KcirrowSIYVBHYGXU9669-45-07 10:37:009.5[facility] AnxekpsERAXNNIIDP5818-49-40 10:37:000.9[facility] KjusktySPBJIMNFKI1298-77-13 10:37:000.3[facility] PbrilifPDQXSDFHIF5659-50-01 10:37:004.8[facility] ISJZELQBPW2682-43-85 10:37:001.3[facility] MynyfqmVYTDIDTGVT4370-05-12 10:37:000.6 [facility] MuypafpVAQWPGJTCP4404-68-92 10:37:000.1[facility]annHEMATOLOGY 2020-08-29 10:37:001+ *ABN*(08/29/20 5:37 AM)[facility] JpwnobdITKBJPNWDM5228-16-82 10:37:00Not Detected (08/29/20 5:37 AM)[facility]annBLOOD BANK RESULTS 2020-08-29 10:37:00Negative (08/29/20 5:37 AM)[facility]annCHEM UJATG4477-94-63 10:37:35404Mswcycue HermannCHEM XQSFT0263-76-34 10:37:0028[facility]annCHEM IYFVZ0421-07-71 10:37:001.01[facility] HermannCHEM YEARA6694-11-65 10:37:26116 [facility]CHE[facility] KJDNL2529-14-86 10:37:003.8[facility] HermannCHEM PANEL 2020-08-29 10:37:88941Dpoesfck HermannCHEM CLCAU9295-65-77 10:37:0028[facility]annCHEM JZBRL4425-60-36 10:37:009.8[facility]annCHEM XDFTI5557-55-74 10:37:0011.8[facility]annCHEM GNJOI0388-56-71 10:37:0059[facility]annCHEM EPYSF3412-89-10 10:37:002.9[facility] LemgdlxOMZTDZJXLB5401-62-57 10:37:006.8 [facility] VljaupxCITHBQXBQY8879-78-98 10:37:004.47[facility]annHEMATOLOGY 2020-08-29 10:37:0010.6[facility] QtuqylkWHYYSMXWCF9723-86-77 10:37:0034.0[facility] UiitpzkQGOCDYSPNS8608-08-99 10:37:0076.1[facility] BdofcudQFEMJNFHLK3020-31-83 10:37:00 Test Item Value Reference Range Interpretation Comments MCH (test code = MCH) 23.8 pg 27.0-31.0 [facility] XskyaoqJRAITRWVMY3059-20-12 10:37:0031.3[facility] HermannHEMATOLOGY 2020-08-29 10:37:0018.2[facility] GrshjozVWBVASQWNV9768-07-51 10:37:54785Ziehtvog FowgfmyBYFMMRTSAL6857-20-29 10:37:007.5[facility] ZsryymyZSISCSYMNY6785-94-50 10:37:00 Test Item Value Reference Range Interpretation Comments PT (test code = PT) 12.8 s 12.0-14.7 [facility] CxhcszuENEKAWLZUJ7197-44-17 10:37:00 Test Item Value Reference Range Interpretation Comments INR (test code = INR) 0.97 1 0.85-1.17 [facility] QbotxwnHKFVOOHBGP4391-02-53 10:37:00 Test Item Value Reference Range Interpretation Comments PTT (test code = PTT) 25.0 s 22.9-35.8 [facility] SikggdqJOIFFDIERV3885-07-20 10:37:0070.5[facility] HermannHEMATOLOGY 2020-08-29 10:37:0018.8[facility] JxjmdklTAKQCOKRQP5623-93-74 10:37:009.5[facility] PubanemCVMAIMXXTF2319-05-13 10:37:000.9[facility] HmmtpzrEFXUKELVKU5954-71-43 10:37:000.3[facility] ZuhloldNRMSIANKBW6480-17-05 10:37:004.8[facility] ZYCDIBUXNA8824-42-43 10:37:001.3[facility] PmqqtvwYHXHWZMMCG7943-85-85 10:37:000.6 [facility] KuubwmgHFWEBISWAK2744-13-00 10:37:000.1[facility]annHEMATOLOGY 2020-08-29 10:37:001+ *ABN*(08/29/20 5:37 AM)[facility] IjlvsvcVDWUQAEIKF0904-79-16 10:37:00Not Detected (08/29/20 5:37 AM)[facility] HermannBLOOD BANK RESULTS 2020-08-29 10:37:00Negative (08/29/20 5:37 AM)[facility]annCHEM XXFQQ1164-85-14 10:37:06886Iyhgpknd HermannCHEM TNGEW6468-02-42 10:37:0028[facility]annCHEM JZPPK9388-81-21 10:37:001.01[facility]annCHEM RTBTH2295-65-21 10:37:58540 [facility]CHE[facility] CXXGS0603-45-91 10:37:003.8[facility]annCHEM PANEL 2020-08-29 10:37:37555Jnacfvft HermannCHEM BPMSE9939-51-08 10:37:0028[facility]annCHEM HOHHI6504-75-07 10:37:009.8[facility] HermannCHEM HHTMN4313-06-53 10:37:0011.8[facility]annCHEM QCQBS2984-01-72 10:37:0059[facility]annCHEM GIHAX7414-39-12 10:37:002.9[facility] XfmphgeVTFKOWCMVJ5407-12-92 10:37:006.8 [facility] PsdccoqMNUGMTTBSB7535-34-90 10:37:004.47[facility]annHEMATOLOGY 2020-08-29 10:37:0010.6[facility] XczakqlGWXDJQCOHX0208-46-98 10:37:0034.0[facility] KzcdivqTFYSESEXZZ2336-04-16 10:37:0076.1[facility] RcqelvxYDKDUKFAAR7827-68-00 10:37:00 Test Item Value Reference Range Interpretation Comments MCH (test code = MCH) 23.8 pg 27.0-31.0 [facility] QxbjbxrCUKHAQLSEN9079-32-68 10:37:0031.3[facility] HermannHEMATOLOGY 2020-08-29 10:37:0018.2[facility] ZprkkuxCEATNCNSDP4597-75-60 10:37:73985Srpobzmj LlyhuydYWQYTEBJQL7178-26-53 10:37:007.5[facility] WytlvblQYZFHUISKT9330-06-94 10:37:00 Test Item Value Reference Range Interpretation Comments PT (test code = PT) 12.8 s 12.0-14.7 [facility] XohcxqbCRDRPRZFOC0508-07-23 10:37:00 Test Item Value Reference Range Interpretation Comments INR (test code = INR) 0.97 1 0.85-1.17 [facility] KcukjluJTOWUKQUPH5434-51-45 10:37:00 Test Item Value Reference Range Interpretation Comments PTT (test code = PTT) 25.0 s 22.9-35.8 [facility] SvclogfNYOKFEZVJA3169-66-64 10:37:0070.5[facility] HermannHEMATOLOGY 2020-08-29 10:37:0018.8[facility] KussogdJOCYQXFUVX3345-50-76 10:37:009.5[facility] MeylmyrVRYONMVXUG6977-47-66 10:37:000.9[facility] UuzgkheFBMDEJISOH4640-11-12 10:37:000.3[facility] MasosbgYWKNRJAVBO4758-63-19 10:37:004.8[facility] HOJKDDNZKD0393-26-12 10:37:001.3[facility] ForyqirCHDKZODTOK4052-68-47 10:37:000.6 [facility] RsqzfarLHMRLOPLWH1048-85-84 10:37:000.1[facility] HermannHEMATOLOGY 2020-08-29 10:37:001+ *ABN*(08/29/20 5:37 AM)[facility] QyfzyveJQHKMONCCZ1605-99-87 10:37:00Not Detected (08/29/20 5:37 AM)[facility] HermannBLOOD BANK RESULTS 2020-08-29 10:37:00Negative (08/29/20 5:37 AM)[facility] HermannCHEM UQQOP3555-94-20 10:37:80599Vhphjpif HermannCHEM BRZDT1162-92-90 10:37:0028[facility]annCHEM YATME7474-69-35 10:37:001.01[facility] HermannCHEM KYJBR9268-02-87 10:37:09731 [facility]CHE[facility] HWXAB0979-53-15 10:37:003.8[facility] HermannCHEM PANEL 2020-08-29 10:37:60133Hhzkwnik HermannCHEM VMMBJ5648-87-55 10:37:0028[facility]annCHEM EOEZL7015-97-93 10:37:009.8[facility]annCHEM KWQZP0780-91-84 10:37:0011.8[facility] HermannCHEM DUDPY3673-87-09 10:37:0059[facility]annCHEM FMKYN4723-77-11 10:37:002.9[facility] KklbygrHHUAOQWPUU8723-04-85 10:37:006.8 [facility] ZuvcvqsRMWSYYJUSH4260-80-36 10:37:004.47[facility]annHEMATOLOGY 2020-08-29 10:37:0010.6[facility] RpydlniLMGAORRAIC7946-75-11 10:37:0034.0[facility] BpfkohwZEEWGGLATY4937-50-39 10:37:0076.1[facility] ThruhkaPLXULSAMMK6719-92-47 10:37:00 Test Item Value Reference Range Interpretation Comments MCH (test code = MCH) 23.8 pg 27.0-31.0 [facility] JfalelbNPSXSLPTEV0083-38-54 10:37:0031.3[facility] HermannHEMATOLOGY 2020-08-29 10:37:0018.2[facility] ZokwmlgSLFUPTTTEO3782-63-11 10:37:14286Pddywcyr MkamjoxNASRJHURNB7455-67-14 10:37:007.5[facility] AjydyzbAAYKCPWVFI8906-74-63 10:37:00 Test Item Value Reference Range Interpretation Comments PT (test code = PT) 12.8 s 12.0-14.7 [facility] HmmzcjuFQUIXWZWFX0788-48-17 10:37:00 Test Item Value Reference Range Interpretation Comments INR (test code = INR) 0.97 1 0.85-1.17 [facility] JfoumtdOLIDKTSPIT5428-78-82 10:37:00 Test Item Value Reference Range Interpretation Comments PTT (test code = PTT) 25.0 s 22.9-35.8 [facility] OdzgrlsNLSBESDKJT2385-32-42 10:37:0070.5[facility]annHEMATOLOGY 2020-08-29 10:37:0018.8[facility] BmcfzqrJIYSHUEAAH5365-76-49 10:37:009.5[facility] BcusbwsIANPYCJVOP7551-53-62 10:37:000.9[facility] TqqyxgtVFPFDRKBQT6105-60-64 10:37:000.3[facility] AdoswieMJFIBKODBM6356-26-94 10:37:004.8[facility] TRDDTGYUGC1177-84-35 10:37:001.3[facility] UumnctnEVHDRMWVEQ8917-52-65 10:37:000.6 [facility] SxgebpzZSOTQRUDKL3888-68-00 10:37:000.1[facility] HermannHEMATOLOGY 2020-08-29 10:37:001+ *ABN*(08/29/20 5:37 AM)[facility] AjytbzeWVYFLJVFOT3254-76-69 10:37:00Not Detected (08/29/20 5:37 AM)[facility] HermannBLOOD BANK RESULTS 2020-08-29 10:37:00Negative (08/29/20 5:37 AM)[facility] HermannCHEM MVCEN3249-25-22 10:37:20365Phkfkgyy HermannCHEM FDZQW0408-12-70 10:37:0028[facility] HermannCHEM EUOKK1071-66-28 10:37:001.01[facility] HermannCHEM CGVAN9441-15-68 10:37:78144 [facility]annCHE[facility] UOYTW5851-26-19 10:37:003.8[facility] HermannCHEM PANEL 2020-08-29 10:37:72571Ergcodla HermannCHEM DXAYQ9905-81-08 10:37:0028[facility] HermannCHEM NDIIT9501-69-96 10:37:009.8[facility] HermannCHEM YDMZG8457-66-92 10:37:0011.8[facility] HermannCHEM QVRSU9106-13-59 10:37:0059[facility] HermannCHEM CRKXC3405-89-29 10:37:002.9[facility] QxpmrgeGGWHISMLXE9174-53-49 10:37:006.8 [facility] GuvemdzRWVMIDOQEN4297-06-24 10:37:004.47[facility] HermannHEMATOLOGY 2020-08-29 10:37:0010.6[facility] NwolkxwEBWHXZBCGK3752-17-65 10:37:0034.0[facility] EeaalauBVXIJZHJTI6856-23-26 10:37:0076.1[facility] EulfrynNAQSWVWJLI1384-82-94 10:37:00 Test Item Value Reference Range Interpretation Comments MCH (test code = MCH) 23.8 pg 27.0-31.0 [facility] EsvmlshKIQXWMYDCT2719-04-13 10:37:0031.3[facility] HermannHEMATOLOGY 2020-08-29 10:37:0018.2[facility] YtqoislLLQXAGZVCR9162-69-25 10:37:90658Xtiljtrh JaesczfAMVPWGHUGU3472-72-33 10:37:007.5[facility] ReidmtgICKVEOLNWL2507-27-22 10:37:00 Test Item Value Reference Range Interpretation Comments PT (test code = PT) 12.8 s 12.0-14.7 [facility] WvztmigZBTKNXANPG3107-65-35 10:37:00 Test Item Value Reference Range Interpretation Comments INR (test code = INR) 0.97 1 0.85-1.17 [facility] GaneaxkZNQQCUUNJT5150-02-99 10:37:00 Test Item Value Reference Range Interpretation Comments PTT (test code = PTT) 25.0 s 22.9-35.8 [facility] OqwyjrlRGEIJJNCIW7849-20-09 10:37:0070.5[facility] HermannHEMATOLOGY 2020-08-29 10:37:0018.8[facility] AwvzvxhWEMJSRAUGT5770-74-37 10:37:009.5[facility] MlhyloyFSWVFEELPP8933-65-81 10:37:000.9[facility] LcbqstaEVBZBRPFNJ2404-07-71 10:37:000.3[facility] KajcujiVOEKUEIROL2236-97-33 10:37:004.8[facility] YNLFGTQDOB2447-29-86 10:37:001.3[facility] BvdahooDGVSFLACQQ4957-18-83 10:37:000.6 [facility] FaajpenBBCCSJCCEY2006-32-35 10:37:000.1[facility] HermannHEMATOLOGY 2020-08-29 10:37:001+ *ABN*(08/29/20 5:37 AM)[facility] FrdutenXCAHSCSDTD2712-48-08 10:37:00Not Detected (08/29/20 5:37 AM)[facility] JessicaDIA, GC, TV,PCR, IN ZCKCU7417-91-08 15:38:00 Test Item Value Reference Range Interpretation Comments FT (test code = CHTR) Not detected (qualifier Not Detected N value) FT (test code = Not detected (qualifier Not Detected N NGONO) value) FT (test code = TRVG) Not detected (qualifier Not Detected N value) [facility] KBCJIVNZVYM6125-00-98 10:57:00 Test Item Value Reference Range Interpretation Comments Color (test code = UCOLR) Dk. Yellow Clarity (test code = UCLAR) Hazy Glucose (test code = UGLUC) NEGATIVE NEGATIVE N Bilirubin (test code = UBILI) NEGATIVE NEGATIVE N Ketones (test code = UKET) NEGATIVE NEGATIVE N Specific [place] (test code = 1.025 1.005-1.030 A USPGR) [...] = None Seen None Seen N URCRYS) [facility] Notes Date/Time Note Provider Source 2021-08-05 14:08:00-00:00 [id number] [address] PATIENT NAME: MARJAN FLEMING ADMIT DATE: 08/05/21 ACCOUNT NO: [id number] ROOM NO: AGE: 66 REPORT TYPE: eTRANSESOPHAGEAL ECHO REPORT SEX: F ADMITTING PHYSICIAN: ATTENDING PHYSICIAN:Mike Lund MD *[address] [place] [address] Transesophageal Echocardiogram Patient: Marjan Fleming Study Date: 08/05/2021 BP: 158 / 92 Location: [facility] URN: [id number] : 1955 Age: 66 Height: / Gender: F Weight: / BMI/BSA: / *Ordering Physician: * Mike Lund *Interpreting Physician: * Ashely Mckeon MD *Asphalt Paving Superintendent: * [place] Interiano Indications: POST WATCHMAN. Study [...] benzocaine spray. A transesophageal probe (SN: [id number]) was inserted by the attending table assembler metal without difficulty. L ocation: CV PREP. Patient [...] benzocaine spray. A transeso phageal probe (SN: [id number]) was inserted by the attending cardiolog ist [...] PATIENT NAME: MARJAN FLEMING 32 2021-06-24 11:18:00-00:00 [id number] [place] [id number] PATIENT NAME: MARJAN FLEMING ADMIT DATE: 06/17/21 ACCOUNT NO: [id number] ROOM NO: ADDIS AGE: 66 REPORT TYPE: eTRANSESOPHAGEAL ECHO REPORT SEX: F ADMITTING PHYSICIAN:Mike Lund MD ATTENDING PHYSICIAN:Mike Lund MD *[place] [address] Transesophageal Echocardiogram for [place] Patient: Marjan Fleming Study Date: 06/17/2021 BP: Location: [facility] URN: [id number] : 1955 Age: 66 Height: / [...] setup: The patient was brought to the la boratory in the fasting state.Intravenous access was obtained. Surface E CG leads, blood pressure measurements, and pulse oximetric signals were m onitored. Sedation. Sedation was administered by anesthesiology samreen rodas. Transesophageal echocardiography was performed. A transesophagea l probe was inserted by the anesthesiologist. Images were obtained using a [employer] cardiac ultrasound machine. Location: Catheterization laboratory. ranjan completion: The patient tolerated the procedure well. There were no complications. Findings Conclusions Summary: PATIENT NAME: MARJAN FLEMING 48 1. Study data: Transesophageal Echocardiogram fo r Watchman. 2. Procedure narrative: Transesophageal echocard iography was performed. A transesophageal probe was inserted by the ane sthesiologist. Images were obtained using a [employer] cardiac ultrasound mac dalton. Impressions: Patient with paroxysmal atrial fibr illation, CHADSVASC score of 5, and intolerance to long-term anticoa gulation due to anemia, CVA, and recurrent falls. Patient is s/p successful implantation of a 24mm Watchman device in the left atrial appendage. Patient tolerated the procedure without post-op complications. No thrombus was identified in the pre-/intra-op WESLYE. Postoperatively, chest x-ray is negative for any acute process. Post-op echo did not show a pericardial effusion. Patient ambulated without any difficulty, and he art rate and blood pressure are stable. Right groin suture removed by this INTERNAL CONTROL SPECIALIST. No infect ion, bleeding, or hematoma. Dermabond applied and intact. Patient was provided with post-Watchman discharg e instructions. Patient is to follow up with PCP and table assembler metal in 1 t o 2 weeks post discharge. Patient is to follow up with table assembler metal for th e 45-day WESLEY, and for anticoagulation recommendation. Prepared and electronically signed by Ashely Mckeon MD 06/24/2021 11:18 Electronically Signed by Mike Lund MD on at 1118 PATIENT NAME: MARJAN FLEMING 7 2021-06-17 18:10:00-00:00 [id number] [place] [address] PATIENT NAME: MARJAN FLEMING ADMIT DATE: 06/17/21 ACCOUNT NO: [id number] ROOM NO: ADDIS AGE: 66 REPORT TYPE: eECHOCARDIOGRAM REPORT SEX: F ADMITTING PHYSICIAN:Mike Lund MD ATTENDING PHYSICIAN:Mike Lund MD *[place] [address] Limited Transthoracic Echocardiogram Patient: Marjan Fleming Study Date: 06/17/2021 BP: 117 / 82 Location: [facility] URN: [id number] 2647 : 1955 Age: 66 Height: 64 in / 162.6 cm Gender: F Weight: 210 lb / 95.5 kg BMI/BSA: 36.1 kg/m 2 / 2.12 m 2 *Ordering Physician: * Bahman Choprap *Interpreting Physician: * Kevin Merino MD *Asphalt Paving Superintendent: * Tiarra Loja Indications: Post Watchman/Rule out pericardial effusion. Study data: Transthoracic echocardiogram, limite d study. Procedure: Transthoracic echocardiography was performed. Im age quality was adequate. Limited 2D and limited spectral Dopple r. Location: [facility]. Patient status: Outpatient. Study status: Routin [...] MARJAN FLEMING 7 2021-06-17 11:12:00-00:00 [facility] Discharge Summary REPORT#:[id number] REPORT STATUS: Signed DATE:06/17/21 TIME: 1112 PATIENT: MARJAN FLEMING UNIT #: [id number] ROOM/BED: [place] [address] : [birth year] AGE: 67 SEX: F ATTEND: René Lund MD ADM AUTHOR: Bahman Chopra * ALL edits or amendments must be made on the [employer]/computer document * PCP PCP Discharge to: home [...] stable. Right groin suture removed by this INTERNAL CONTROL SPECIALIST. No infect ion, bleeding, or hematoma. Dermabond applied and intact. Patient was provided with post-Watchman discharg e instructions. Patient is to follow up with PCP and table assembler metal in 1 to 2 we eks post discharge. Patient is to follow up with table assembler metal for th e 45-day WESLEY, and for anticoagulation recommendation. Patient is to continue Eliquis until the 45-day EWSLEY. If the 45-day WESLEY shows a we [...] breath, lightheadedness, or dizzi ness to the table assembler metal. Dispo: It is medically necessary that patients [...] distress GI: soft, non-tender Extremities: moves all Neuro/FRAME ALIGNER: alert, oriented X 3 Skin: dry Wound/incision: Location: Right groin suture removed by this INTERNAL CONTROL SPECIALIST. No infect ion, bleeding, or hematoma. Dermabond [...] Mike Lund MD on 07/14 at 0946 [facility] #:[id number] END OF REPORT 2021-06-17 09:43:00-00:00 [id number] [address] PATIENT NAME: MARJAN FLEMING ADMIT DATE: 06/17/21 ACCOUNT NO: [id number] ROOM NO: ADDIS AGE: 66 REPORT TYPE: eELECTROCARDIOGRAM REPORT SEX: F ADMITTING PHYSICIAN:Mike Lund MD ATTENDING PHYSICIAN:Mike Lund MD Order: [id number] Test Reason : S/P WATCHMAN Test Date/Time [...] PATIENT NAME: MARJAN FLEMING 7 2021-06-17 08:54:00-00:00 [id number] [place] [address] PATIENT NAME: MARJAN FLEMING ADMIT DATE: 06/17/21 ACCOUNT NO: [id number] ROOM NO: [facility] AGE: 66 REPORT TYPE: CARDIAC CATHETERIZATION REPORT SEX: F ADMITTING PHYSICIAN:Mike Lund MD ATTENDING PHYSICIAN:Mike Lund MD PROCEDURE DATE: 06/17/2021 PROCEDURE PERFORMED: Left atrial appendage closu re using a 24 mm Watchman FLX closure device. ACCESS: Right femoral vein, 16-Surinamese closed wit h gahsdo-ej-dwmkx suture. BRASSWIND INSTRUMENT REPAIRER: Mike Lund MD. SECONDARY MAID HOUSEKEEPER: Kevin Merino MD. COMPLICATIONS: None. BLEEDING: Less [...] I accessed right femo ral vein, placed 8-Surinamese [place] sheath. Subsequently, upgraded to 16-Surinamese sheath and gave a partial dose of heparin, then took the SL1 sheat h into the SVC over a wire with Carson needle inside, descended under the fluor oscopy [...] I removed the Watchman sheath and the 16-Surinamese sheath and placed yolrip-hi-mapdt suture for hemostasis, then achieved a good hemo stasis. CONCLUSION: Left atrial appendage closure using a 24 mm Watchman FLX closure PATIENT NAME: MARJAN FLEMING 47 device. Dictated By: Mike Lund MD WT: CATH:GAYLE/RIKY/ALLA Conf#: [id number]/DID#: [id number] Authenticated by Mike Lund MD On 07/01/2021 12:30:01 PM Electronically Signed by Mike Lund MD on at 1230 PATIENT NAME: MARJAN FLEMING 7 2021-06-16 10:36:00-00:00 [id number] [address] PATIENT NAME: MARJAN FLEMING ADMIT DATE: ACCOUNT NO: [id number] ROOM NO: AGE: 66 REPORT TYPE: eELECTROCARDIOGRAM REPORT SEX: F ADMITTING PHYSICIAN: ATTENDING PHYSICIAN:Mike Lund MD Order: [id number] Test Reason : PREOP Test Date/Time Stamp: [...]
--- NOTE | 2022-11-24 14:42 | RAD REPORT ---
EXAM DESCRIPTION: Patrick Single View11/24/2022 2:28 pm CLINICAL HISTORY: sob COMPARISON: October 2022 FINDINGS: The lungs appear clear of acute infiltrate. The heart is mildly to moderately enlarged IMPRESSION: No acute abnormalities displayed
[2022-11-24] MEDS ORDERED: HYDRALAZINE HCL 20 MG/ML VIAL ONE (14:46)
[2022-11-24 15:32] LABS: Absolute Lymphocytes (CBC) 0.9 K/uL (0.7-4.9); Hematocrit 34.5 % (36.0-45.0); Lymphocytes % 22.5 % (15.3-44.8); MPV 7.5 fL (7.6-11.3); RBC Red Blood Cell Count 4.16 M/uL (3.86-4.86)
[2022-11-24 15:40] LABS: Protime INR 0.98
[2022-11-24 16:01] LABS: Albumin 3.5 g/dL (3.4-5.0); Bilirubin Direct 0.1 mg/dL (0-0.2); Bilirubin Indirect, Calculated 0.3 mg/dL (0.2-0.8); Bilirubin Total 0.4 mg/dL (0.2-1.0); Potassium 3.8 mEq/L (3.5-5.1); Protein, Total 7.5 g/dL (6.4-8.2); Troponin High Sensitivity 15.5 pg/mL (<58.9)
[2022-11-24] MEDS ORDERED: FUROSEMIDE 40 MG/4 ML VIAL ONE (16:28)
[2022-11-24] MEDS ORDERED: FUROSEMIDE 20 MG/ 2ML VIAL ONE (16:28)
[2022-11-24] MEDS ORDERED: MORPHINE 4 MG/ML SYR ONE (16:45)
[2022-11-24] MEDS ORDERED: NITROGLYCERIN 1 GM PKT TD ONE (17:35)
--- NOTE | 2022-11-24 17:43 | ER ---
Nurse's Notes [facility] Name: Marjan Kolb Age: 67 yrs Sex: Female : 1955 Arrival Date: 11/24/2022 Time: 13:53 Bed 13 Private MD: Diagnosis: Unspecified combined systolic (congestive) and diastolic (congestive) heart failure;Dyspnea, unspecified;Essential (primary) hypertension;Chest pain, unspecified Presentation: 11/24 13:59 Chief complaint: EMS states: toned out for shortness of breath, her blood pressure is ko1 high. Gave albuterol and atrovent treatment in route. Coronavirus screen: At this time, the client does not indicate any symptoms associated with coronavirus-19. Ebola Screen: No symptoms or risks identified at this time. Initial Sepsis Screen: Does the patient meet any 2 criteria? No. Patient's initial sepsis screen is negative. Does the patient have a suspected source of infection? No. Patient's initial sepsis screen is negative. Risk Assessment: Do you want to hurt yourself or someone else? Patient reports no desire to harm self or others. Onset of symptoms was November 24, 2022. 13:59 Method Of Arrival: EMS: [facility] ko1 13:59 Acuity: BLAYNE 3 ko1 Triage Assessment: 14:01 General: Appears in no apparent distress. comfortable, Behavior is calm, cooperative, ko1 appropriate for age. Pain: Denies pain. Historical: - Allergies: 14:01 Azithromycin; ko1 14:01 Bactrim; ko1 14:01 butorphanol; ko1 14:01 Fentanyl; ko1 14:01 Reglan; ko1 14:01 Sulfa (Sulfonamide Antibiotics); ko1 14:01 TRIMETHOPRIM; ko1 - Home Meds: 14:01 lisinopril Oral [Active]; Metoprolol Tartrate Oral [Active]; ko1 - PMHx: 14:01 angina pectoris; Anxiety; Atrial fibrillation; Bipolar disorder; esophageal varicies; ko1 Hepatitis; HIV positive; Hypertensive disorder; Migraine; panic attack; - Immunization history:: Adult Immunizations unknown. - Social history:: Smoking status: Patient/guardian denies using tobacco. - Family history:: not pertinent. - Hospitalizations: : No recent hospitalization is reported. Screenin:00 [facility] ED Fall Risk Assessment (Adult) History of falling in the last 3 months, ko1 including since admission No falls in past 3 months (0 pts) Confusion or Disorientation No (0 pts) Intoxicated or Sedated No (0 pts) Impaired Gait No (0 pts) Mobility Assist Device Used No (0 pt) Altered Elimination No (0 pt) Score/Fall Risk Level 0 - 2 = Low Risk Oriented to surroundings, Maintained a safe environment, Educated pt \T\ family on fall prevention, incl call for assistance when getting out of bed, Assessed \T\ reinforced patient's understanding of fall precautions, Provided non-skid footwear, Hourly rounding (assess needs \T\ fall precautionary measures) done, Used ambulatory aids as needed (educated on \T\ assisted with), Used gait belt as appropriate. Abuse screen: Denies threats or abuse. Denies injuries from another. Nutritional screening: No deficits noted. Tuberculosis screening: No symptoms or risk factors identified. Assessment: 14:54 Reassessment: labs delayed due to difficult IV start. ko1 17:42 Reassessment: Patient appears in no apparent distress at this time. No changes from ko1 previously documented assessment. Patient and/or family updated on plan of care and expected duration. Pain level reassessed. Patient is alert, oriented x 3, equal unlabored respirations, skin warm/dry/pink. Patient states feeling better. Vital Signs: 13:59 BP 209 / 152; Pulse 54; Resp 18; Temp 98.3; Pulse Ox 100% on Nebulizer Mask; ko1 14:41 BP 177 / 130; Pulse 51; Resp 18; Pulse Ox 98% on R/A; ko1 15:30 BP 142 / 119; Pulse 70; Resp 16; Pulse Ox 95% on R/A; ko1 16:25 BP 205 / 117; Pulse 52; Resp 18; Pulse Ox 98% on R/A; ko1 17:41 BP 184 / 110; Pulse 56; Resp 16; Pulse Ox 98% on R/A; ko1 18:31 BP 171 / 100; Pulse 63; Resp 19; Pulse Ox 100% ; ko1 19:48 BP 184 / 94; Pulse 55; Resp 18; Pulse Ox 99% on R/A; ll3 ED Course: 13:59 Patient arrived in ED. ko1 13:59 Nancy Shannon, RN is Primary Nurse. ko1 14:01 Triage completed. ko1 14:01 Arm band placed on right wrist. Patient placed in an exam room, on a stretcher, on ko1 pulse oximetry, Patient notified of wait time. 14:02 Ramon Baker MD is Attending Physician. rn 14:29 XRAY CXR (1 view) In Process Unspecified. EDMS 15:00 Patient has correct armband on for positive identification. Bed in low position. Call ko1 light in reach. Side rails up X 1. Client placed on continuous cardiac and pulse oximetry monitoring. NIBP monitoring applied. traffic monitor specialist on. Door closed. Noise minimized. Warm blanket given. 15:00 No provider procedures requiring assistance completed. ko1 15:28 Inserted saline lock: 22 gauge in right forearm, using aseptic technique. ,using ss aseptic technique. US GUIDED. Pt tolerated well Blood collected. 17:42 Lei Munoz MD is Hospitalizing Provider. rn 19:28 Primary Nurse role handed off by Nancy Shannon, RN rv1 20:16 Patient admitted, IV remains in place. ll3 Administered Medications: 15:20 Drug: hydrALAZINE IVP 10 mg Route: IVP; Site: right forearm; ko1 16:23 Drug: Furosemide IVP 60 mg Route: IVP; Site: right forearm; ko1 16:46 Drug: morphine IVP or IV 4 mg Route: IVP; Infused Over: 4 mins; Site: right forearm; ko1 17:28 Drug: Nitroglycerin Transdermal Ointment 2 % 1 inches Route: Transdermal; Site: ko1 anterior chest wall; Medication: 16:25 VIS not applicable for this client. ko1 Output: 17:41 Urine: 1500ml (Voided); Total: 1500ml. ko1 Outcome: 17:43 Decision to Hospitalize by Provider. rn 20:16 Admitted to Tele accompanied by tech, via wheelchair, room 430, with chart, Report ll3 called to ASHLEY Ibrahim 20:16 Condition: stable 20:16 Instructed on the need for admit, Demonstrated understanding of instructions. 20:17 Patient left the ED. ll3 Signatures: Dispatcher [employer] EDMS Ramon Baker MD MD rn Blanchard, Shelby, RN RN ss Loubet, Lynsea, RN RN ll3 Nancy Shannon RN RN ko1 Ness Nicholas rv1 Corrections: (The following items were deleted from the chart) 14:03 14:01 PMHx: angina pectoris; ko1 ko1
--- NOTE | 2022-11-24 17:43 | EDPHYS ---
Physician Documentation [facility] Name: Marjan Kolb Age: 67 yrs Sex: Female : 1955 Arrival Date: 11/24/2022 Time: 13:53 Bed 13 Private MD: ED Physician Ramon Baker HPI: 11/24 15:26 This 67 yrs old Female presents to ER via EMS with complaints of Shortness Of Breath. rn 15:26 The patient has shortness of breath at rest, with light activity. Onset: The rn symptoms/episode began/occurred this morning. Duration: The symptoms are continuous. The patient's shortness of breath is aggravated by nothing, is alleviated by nothing. Associated signs and symptoms: Pertinent positives: non-productive cough, Pertinent negatives: chest pain, fever, hemoptysis. Severity of symptoms: At their worst the symptoms were moderate in the emergency department the symptoms have improved. The patient has experienced similar episodes in the past. The patient has not recently seen a physician. Historical: - Allergies: 14:01 Azithromycin; ko1 14:01 Bactrim; ko1 14:01 butorphanol; ko1 14:01 Fentanyl; ko1 14:01 Reglan; ko1 14:01 Sulfa (Sulfonamide Antibiotics); ko1 14:01 TRIMETHOPRIM; ko1 - Home Meds: 14:01 lisinopril Oral [Active]; Metoprolol Tartrate Oral [Active]; ko1 - PMHx: 14:01 angina pectoris; Anxiety; Atrial fibrillation; Bipolar disorder; esophageal varicies; ko1 Hepatitis; HIV positive; Hypertensive disorder; Migraine; panic attack; - Immunization history:: Adult Immunizations unknown. - Social history:: Smoking status: Patient/guardian denies using tobacco. - Family history:: not pertinent. - Hospitalizations: : No recent hospitalization is reported. ROS: 15:26 Constitutional: Negative for fever, chills, and weight loss, Eyes: Negative for injury, rn pain, redness, and discharge, Neck: Negative for injury, pain, and swelling, Cardiovascular: Negative for chest pain, palpitations, and edema, Respiratory: + sob and cough Abdomen/GI: Negative for abdominal pain, nausea, vomiting, diarrhea, and constipation, MS/Extremity: Negative for injury and deformity, Skin: Negative for injury, rash, and discoloration, Neuro: Negative for headache, numbness, tingling, and seizure. Exam: 15:00 ECG was reviewed by the Attending Physician. rn 15:26 Constitutional: This is a well developed, well nourished patient who is awake, alert, rn and in no acute distress. Cardiovascular: Bradycardic, regular. No pulse deficits. Respiratory: Mild tachypnea, faint wheezing expiratory phase Abdomen/GI: Soft, non-tender Skin: Warm, dry MS/ Extremity: Pulses equal, no cyanosis. Neuro: Awake and alert, GCS 15 Vital Signs: 13:59 BP 209 / 152; Pulse 54; Resp 18; Temp 98.3; Pulse Ox 100% on Nebulizer Mask; ko1 14:41 BP 177 / 130; Pulse 51; Resp 18; Pulse Ox 98% on R/A; ko1 15:30 BP 142 / 119; Pulse 70; Resp 16; Pulse Ox 95% on R/A; ko1 16:25 BP 205 / 117; Pulse 52; Resp 18; Pulse Ox 98% on R/A; ko1 17:41 BP 184 / 110; Pulse 56; Resp 16; Pulse Ox 98% on R/A; ko1 18:31 BP 171 / 100; Pulse 63; Resp 19; Pulse Ox 100% ; ko1 19:48 BP 184 / 94; Pulse 55; Resp 18; Pulse Ox 99% on R/A; ll3 MDM: 14:02 Patient medically screened. rn 17:34 Differential diagnosis: Anemia Anxiety Reaction CHF exacerbation, Myocardial Infarction rn Pneumothorax pulmonary edema. Data reviewed: vital signs, nurses notes. 17:39 Counseling: I had a detailed discussion with the patient and/or guardian regarding: the rn historical points, exam findings, and any diagnostic results supporting the discharge/admit diagnosis, lab results, radiology results, the need for further work-up and treatment in the hospital. Response to treatment: There is no appreciated change of the patient's symptoms at this time, and as a result, I will admit patient. ED course: Pt with orthopnea, reports dyspnea and chest pain, extremely hypertensive, elevated BNP, out of atleast 2 anti-hypertensives, will admit for diuresis and BP management given CHF exacerbation.. 11/24 14:07 Order name: GUALBERTO; Complete Time: 16:17 rn 11/24 14:07 Order name: Blood Culture Adult (2) rn 11/24 14:07 Order name: CBC with Diff; Complete Time: 15:47 rn 11/24 14:07 Order name: Hepatic Function; Complete Time: 16:17 rn 11/24 14:07 Order name: NT PRO-BNP; Complete Time: 16:17 rn 11/24 14:07 Order name: PT-INR; Complete Time: 15:47 rn 11/24 14:07 Order name: Ptt, Activated; Complete Time: 15:47 rn 11/24 14:07 Order name: Troponin HS; Complete Time: 16:17 rn 11/24 14:10 Order name: Blood Culture EDMS 11/24 14:07 Order name: XRAY CXR (1 view); Complete Time: 14:54 rn 11/24 14:07 Order name: EKG; Complete Time: 14:10 rn 11/24 14:07 Order name: Cardiac monitoring; Complete Time: 14:09 rn 11/24 14:07 Order name: EKG - Nurse/Tech; Complete Time: 14:54 rn 11/24 14:07 Order name: IV Saline Lock; Complete Time: 15:25 rn 11/24 14:07 Order name: Labs collected and sent; Complete Time: 15:25 rn 11/24 14:07 Order name: O2 Per Protocol; Complete Time: 14:09 rn 11/24 14:07 Order name: O2 Sat Monitoring; Complete Time: 14:09 rn EC:00 Rate is 59 beats/min. Rhythm is regular. QRS [place] is Normal. QRS interval is normal. QT rn interval is prolonged at 502 msec. No Q waves. T waves are Normal. No ST changes noted. Clinical impression: NSR w/ Non-specific ST/T Changes. Interpreted by me. Reviewed by me. Administered Medications: 15:20 Drug: hydrALAZINE IVP 10 mg Route: IVP; Site: right forearm; ko1 16:23 Drug: Furosemide IVP 60 mg Route: IVP; Site: right forearm; ko1 16:46 Drug: morphine IVP or IV 4 mg Route: IVP; Infused Over: 4 mins; Site: right forearm; ko1 17:28 Drug: Nitroglycerin Transdermal Ointment 2 % 1 inches Route: Transdermal; Site: ko1 anterior chest wall; Disposition Summary: 11/24/22 17:43 Hospitalization Ordered Hospitalization Status: Observation rn Provider: Alexander, Lei rn Location: Telemetry/MedSurg (observation) rn Condition: Stable rn Problem: an acute exacerbation rn Symptoms: are unchanged rn Bed/Room Type: Standard rn Room Assignment: 430(11/24/22 19:46) cg Diagnosis - Unspecified combined systolic (congestive) and diastolic (congestive) heart failure rn - Dyspnea, unspecified rn - Essential (primary) hypertension rn - Chest pain, unspecified rn Forms: - Medication Reconciliation Form rn - SBAR form rn Signatures: Dispatcher [employer] EDRamon Harrison MD MD rn Garcia, Cindy, RN RN cg Oliver, Kathy, RN RN koShelby Corrections: (The following items were deleted from the chart) 14:03 14:01 PMHx: angina pectoris; ko1 ko1 19:46 17:43 rn cg
--- NOTE | 2022-11-24 19:52 | P.HP ---
Certification for Inpatient Patient admitted to: Observation With expected LOS: <2 Midnights Patient will require the following post-hospital care: None Practitioner: I am a practitioner with admitting privileges, knowledge of patient current condition, hospital course, and medical plan of care. Services: Services provided to patient in accordance with Admission requirements found in Title 42 Section 412.3 of the Code of Federal Regulations Patient History Date of Service: 11/24/22 Reason for admission: Hypertensive urgency History of Present Illness: 67-year-old female with history of HIV, hypertension, atrial fibrillation status post Watchman procedure, chronic diastolic just heart failure, COPD presents emergency department chief complaint of hypertension, shortness of breath. She reports being out of her home medications including metoprolol, possibly lisinopril, Lasix for the last 1 week or so. She notes worsening shortness of breath that started last night. She was evaluated in the emergency department initially she was very hypertensive with blood pressures of 209/152, she was given a nebulizer treatment by EMS which mildly helped her symptoms. Her labs are significant for hemoglobin 10.8 hematocrit 34.5 BNP 8327 troponin 15.5 she was given hydralazine 10 mg IV, furosemide 60 mg IV, morphine 4 mg IV, transdermal nitroglycerin patch which have improved her blood pressure to around 171/100 at this time. ED provider wishes to admit under observation for hypertensive urgency, dyspnea, acute on chronic diastolic congestive heart failure. Allergies fentanyl Allergy (Severe, Verified 07/20/22 08:30) Hives adhesive tape Allergy (Verified 07/20/22 08:30) Rash butorphanol tartrate [From Stadol] Allergy (Verified 07/20/22 08:30) confusion metoclopramide HCl [From Reglan] Allergy (Verified 07/20/22 08:30) Shortness of breath sulfamethoxazole [From Bactrim] Allergy (Verified 07/20/22 08:30) Hives/Rash trimethoprim [From Bactrim] Allergy (Verified 07/20/22 08:30) Hives/Rash Bactrim DS Allergy (Intermediate, Uncoded 07/20/22 08:30) Nausea/Vomiting Home Medications: Raltegravir Potassium [Isentress] 1 tab PO BID 02/28/12 Sertraline [Zoloft*] 2 tab PO BID 09/15/12 Emtricitabine/Tenofov Alafenam [Descovy 200-25 mg Tablet] 1 tab PO DAILY 03/05/21 Amlodipine Besylate 1 tab PO DAILY 03/30/21 Dexlansoprazole [Dexilant] 60 mg PO DAILY 03/30/21 Clopidogrel Bisulfate [Plavix*] 1 tab PO DAILY 10/16/21 Trazodone [Desyrel*] 1 tab PO BEDTIME 10/16/21 buPROPion HCL [Wellbutrin Xl] 1 tab PO DAILY 10/16/21 Spironolactone [Aldactone*] 25 mg PO DAILY #30 tab 02/04/22 Hydromorphone [Dilaudid*] 2 mg PO DAILY 03/15/22 Losartan Potassium [Cozaar*] 50 mg PO BID #60 tablet 04/25/22 hydroCHLOROthiazide [Hydrochlorothiazide] 25 mg PO DAILY #30 tab 07/14/22 Metoprolol Tartrate 1 tab PO BID 07/20/22 - Past Medical/Surgical History Diabetic: No -: HIV- viral load currently undectable -: CAD -: Bipolar disorder -: Hypertension -: COPD on home O2 @ 2L -: Tobacco abuse -: former Alcohol abuse -: Anemia of chronic disease -: Hyperlipidemia -: GERD with hiatal hernia -: Atrial fibrillation-paroxysmal S/P Watchman procedure -: Chronic diastolic CHF -: Appendectomy Watchman procedure, -: Cholecystectomy -: left and right shoulder rotator cuff repair -: Right foot repair -: Right shoulder replacement -: right wrist -: hiatal hernia repair february 2021 -: right wrist Psychosocial/ Personal History: She lives at home. She is newly . - Family History Father -: Heart disease, Hypertension, Lung disease, GI disease, Stroke, Cancer, Liver disease, Kidney disease Notes: Colon cancer Mother -: Hypertension, Lung disease, GI disease, Blood disorders, Other (see notes) Notes: Epilepsy, chronic pain, leukemia - Social History Smoking Status: Former smoker Alcohol use: No CD- Drugs: No Caffeine use: No Place of Residence: Home Review of Systems 10-point ROS is otherwise unremarkable Respiratory: Shortness of Breath Cardiovascular: Orthopnea Physical Examination - Physical Exam General: Alert, In no apparent distress, Oriented x3 HEENT: Atraumatic, PERRLA, Mucous membr. moist/pink, EOMI, Sclerae nonicteric Neck: Supple, 2+ carotid pulse no bruit, No LAD, Without JVD or thyroid abnormality Respiratory: Diminished Cardiovascular: No edema, Regular rate/rhythm, Normal S1 S2 Capillary refill: <2 Seconds Gastrointestinal: Normal bowel sounds, No tenderness Musculoskeletal: No tenderness Integumentary: No rashes Neurological: Normal speech, Normal strength at 5/5 x4 extr, Normal tone, Normal affect - Studies Laboratory Data (last 24 hrs) 11/24/22 15:22: PT 10.8, INR 0.98, APTT 29.9 11/24/22 15:22: WBC 4.10 L, Hgb 10.8 L, Hct 34.5 L, Plt Count 132 L 11/24/22 15:22: Sodium 140, Potassium 3.8, BUN 22 H, Creatinine 1.01, Glucose 97, Total Bilirubin 0.4, AST 24, ALT 22, Alkaline Phosphatase 111 Assessment and Plan - Plan Assessment: Hypertensive urgency with underlying primary hypertension/medical noncompliance Acute on chronic diastolic congestive heart failure Paroxysmal atrial fibrillation status post Watchman procedure HIV COPD Plan: Hypertensive urgency with underlying primary hypertension/medical noncompliance Blood pressure improved at this time, continue home medications including metoprolol, will need to review pharmacy records to determine other home medications as patient is very uncertain of what medication she has been taking. We will also continue IV Lasix given dyspnea, orthopnea, elevated BNP. Yun ent reports she reports she takes Lasix at home and has been out of it as well. Acute on chronic diastolic congestive heart failure Continue IV diuresis, last echocardiogram performed in June shows normal EF. Continue other home medications. Paroxysmal atrial fibrillation status post Watchman procedure Patient reports that she takes Plavix at home had Watchman procedure approximately 1 to 2 years ago. Continue Plavix, monitoring telemetry. HIV Continue home medications, patient reports she is compliant with her an tiretrovirals COPD As needed nebulized treatments, no wheezing noted at this time. DVT PPX: Lovenox Code status: Full Discharge Plan: Home Plan to discharge in: 24 Hours - Advance Directives Does patient have a Living Will: No Does patient have a Durable POA for Healthcare: No - Code Status/Comfort Care Code Status Assessed: Yes (Full code) Critical Care: No Time Spent Managing Pts Care (In Minutes): 55
[2022-11-24] MEDS ORDERED: ALBUTEROL 2.5 MG/3 ML NEB SOL NEB PRN (20:25)
[2022-11-24] MEDS ORDERED: HYDROCODONE/APAP 5/325 MG TAB PO PRN (20:25)
[2022-11-24 21:00] VITALS: BMI 30.1
[2022-11-24] MEDS ORDERED: TRAZODONE 50 MG TABLET PO SCH (21:00)
[2022-11-24] MEDS: METOPROLOL TAR 50 MG TAB PO SCH (21:06)
[2022-11-24] MEDS: HYDRALAZINE HCL 20 MG/ML VIAL IV PRN (21:07)
[2022-11-24] MEDS ORDERED: KETOROLAC 30 MG/ML INJ IV ONE (21:21)
[2022-11-24] MEDS: clonazePAM 0.5 MG TAB PO PRN (21:47)
[2022-11-25] MEDS ORDERED: KETOROLAC 30 MG/ML INJ IV ONE (06:19)
[2022-11-25 06:47] LABS: Absolute Lymphocytes (CBC) 0.6 K/uL (0.7-4.9); Hematocrit 33.8 % (36.0-45.0); Lymphocytes % 13.2 % (15.3-44.8); MCV 82.8 fL (80-100); RBC Red Blood Cell Count 4.09 M/uL (3.86-4.86)
[2022-11-25 07:08] LABS: Troponin High Sensitivity 25.9 pg/mL (<58.9)
--- NOTE | 2022-11-25 07:37 | P.PN ---
Date of Service: 11/25/22 Subjective: feeling better than yesterday, however not quite 100% back to normal BP slowly improving chest pain/pressure ongoing for ~2 weeks, +mild tenderness legs have been feeling weak/wobbly for weeks; feels they will give out, +unsteady balance ROS: 10 point ROS as noted above, otherwise negative Physical Exam: GEN: Alert, oriented, NAD HEENT: Normal conjunctiva, sclera anicteric CV: Regular rate and rhythm, no edema Pulm: Nonlabored respirations on 4L NC at rest, diminished at bases b/l ABD: Soft, nontender, nondistended MSK: No joint tenderness Integumentary: No rashes Neuro: Normal speech, normal affect vitals reviewed Problem List: Hypertensive urgency with underlying primary hypertension/medical noncompliance Acute on chronic diastolic CHF hx of recurrent falls Paroxysmal atrial fibrillation s/p Watchman procedure HIV COPD Hypertensive urgency with underlying primary hypertension/medical noncompliance BP improved at this time, continue home medications including metoprolol, will n eed to review pharmacy records to determine other home medications as patient is very uncertain of what medication she has been taking. multiple different recommendations patient states she is supposed to be taking metoprolol, hydralazine, lisinopril, norvasc, and she thinks lasix continue IV Lasix given dyspnea, orthopnea, elevated BNP. Patient reports she takes Lasix at home and has been out of it as well. Acute on chronic diastolic CHF CXR (11/24): no acute abnormalities Continue IV lasix last echo performed in June shows normal EF. Continue other home medications hx of recurrent falls legs have been feeling weak/wobbly for weeks; feels they will give out, +unsteady balance CT head (July 2022): No acute intracranial abnormality. Brain MRI (september 2021): negative likely due to a combination of home medications, +hypertension PT consult Paroxysmal atrial fibrillation s/p Watchman procedure Patient reports that she takes Plavix at home had Watchman procedure approximately 1 to 2 years ago. Continue Plavix, monitor on telemetry. HIV Continue home medications, patient reports she is compliant with her antiretrovirals Patient says her will bring her home medication later COPD nebs as needed stable. no wheezing noted at this time. wears oxygen at home - 2L VTE: Lovenox Code: Full Dispo: Home with Home health ~1 day ss/cm consulted
[2022-11-25] MEDS: METOPROLOL TAR 50 MG TAB PO SCH ×2 (08:57→19:48)
[2022-11-25] MEDS: CLOPIDOGREL 75 MG TABLET PO SCH (08:58)
[2022-11-25] MEDS: FUROSEMIDE 20 MG/ 2ML VIAL IV SCH ×2 (08:58→17:24)
[2022-11-25] MEDS: AMLODIPINE 10 MG TAB PO SCH (08:58)
[2022-11-25] MEDS ORDERED: ENOXAPARIN 40 MG/0.4 ML SQ SCH (09:00)
[2022-11-25] MEDS: clonazePAM 0.5 MG TAB PO PRN ×2 (09:08→19:46)
--- NOTE | 2022-11-25 12:15 | EKG ---
Test Date: 2022-11-24 Test Time: 14:48:33 General Ledger Accountant: JENNIFER MEASUREMENT RESULTS: Intervals: Rate: 59 IN: 212 QRSD: 94 QT: 508 QTc: 502 [place]: P: -1 IN: 212 QRS: 27 T: 52 INTERPRETIVE STATEMENTS: Sinus bradycardia with 1st degree AV block Minimal voltage criteria for LVH, may be normal variant Nonspecific T wave abnormality Prolonged QT Abnormal ECG Compared to ECG 11/15/2022 05:19:47 First degree AV block now present T-wave abnormality now present ST (T wave) deviation no longer present Electronically Signed On 11-25-22 12:13:21 CDT by Mike Lund
--- NOTE | 2022-11-25 12:15 | EKG ---
Test Date: 2022-11-24 Test Time: 14:45:37 Environmental Law Professor: JENNIFER MEASUREMENT RESULTS: Intervals: Rate: 68 DE: QRSD: 88 QT: 476 QTc: 506 [place]: P: DE: QRS: 26 T: -45 INTERPRETIVE STATEMENTS: Atrial fibrillation Nonspecific T wave abnormality Prolonged QT Abnormal ECG Compared to ECG 11/15/2022 05:19:47 T-wave abnormality now present Sinus bradycardia no longer present Left ventricular hypertrophy no longer present ST (T wave) deviation no longer present Electronically Signed On 11-25-22 12:13:23 CDT by Mike Lund
[2022-11-25] MEDS ORDERED: hydroCHLOROthiazide 25 MG TAB PO ONE (13:51)
[2022-11-25] MEDS ORDERED: ALBUTEROL 2.5 MG/3 ML NEB SOL NEB PRN (14:00)
[2022-11-25] MEDS: TRAMADOL HCL 50 MG TAB PO PRN ×2 (14:05→19:47)
[2022-11-25] MEDS: LIDOCAINE 4% PATCH TOP SCH (14:06)
[2022-11-25] MEDS: TRAZODONE 50 MG TABLET PO PRN (19:47)
[2022-11-26 04:07] LABS: Magnesium 2.2 mg/dL (1.6-2.4); Potassium 2.7 mEq/L (3.5-5.1)
[2022-11-26] MEDS ORDERED: NA CHLORIDE 0.9% 250 ML ONE (06:38)
[2022-11-26] MEDS ORDERED: KCL 20 MEQ/100 mL IVPB 20 MEQ/100 ML BAG IV SCH (07:00)
--- NOTE | 2022-11-26 07:24 | P.PN ---
Date of Service: 11/26/22 Subjective: doing okay, arm pineda from potassium no new / worsening problems working with PT, lower back pain after walking ROS: 10 point ROS as noted above, otherwise negative Physical Exam: GEN: Alert, oriented, NAD HEENT: Normal conjunctiva, sclera anicteric CV: Regular rate and rhythm, no edema Pulm: Nonlabored respirations on 4L NC at rest, diminished at bases b/l Integumentary: No rashes Neuro: Normal speech, normal affect vitals reviewed Problem List: Hypertensive urgency with underlying primary hypertension/medical noncompliance ROHAN hypokalemia Acute on chronic diastolic CHF vs COPD exacerbation hx of recurrent falls Paroxysmal atrial fibrillation s/p Watchman procedure HIV Hypertensive urgency with underlying primary hypertension/medical noncompliance ROHAN patient uncertain on what she is supposed to be taking patient states she thinks she is supposed to be taking metoprolol, hydralazine, lisinopril, norvasc, and she thinks lasix she reports being out of several of these medications for a few days BP with some improvement yesterday cr uptrending, pt with some h/o CKD and received low dose toradol and HCTZ x1 in addition to lasix, leading to hypokalemia, and likely bump in renal function Nephrology consulted HCTZ dc'd Acute on chronic diastolic CHF vs COPD exacerbation CXR (11/24): no acute abnormalities no significant edema on exam dc lasix 11/26 suspect more COPD , does not follow regularly with a canal tender, consult Dr. Sosa last echo performed in June shows normal EF. hx of recurrent falls legs have been feeling weak/wobbly for weeks; feels they will give out, +unsteady balance CT head (July 2022): No acute intracranial abnormality. Brain MRI (september 2021): negative likely due to a combination of home medications, +hypertension PT consult Paroxysmal atrial fibrillation s/p Watchman procedure Patient reports that she takes Plavix at home had Watchman procedure approximate ly 1 to 2 years ago. Continue Plavix, monitor on telemetry. HIV Continue home medications, patient reports she is compliant with her antiretrovirals Patient says her will bring her home medication later VTE: Lovenox Code: Full Dispo: Home with Home health ~1-2 days ss/cm consulted
[2022-11-26] MEDS: METOPROLOL TAR 50 MG TAB PO SCH ×2 (08:26→19:54)
[2022-11-26] MEDS: CLOPIDOGREL 75 MG TABLET PO SCH (08:26)
[2022-11-26] MEDS: AMLODIPINE 10 MG TAB PO SCH (08:26)
[2022-11-26] MEDS: LIDOCAINE 4% PATCH TOP SCH (08:26)
[2022-11-26] MEDS ORDERED: POTASSIUM CL 40 MEQ in NA CHLORIDE 0.9% 500 ML IV SCH (09:00)
[2022-11-26] MEDS: clonazePAM 0.5 MG TAB PO PRN ×2 (09:20→19:55)
--- NOTE | 2022-11-26 15:17 | P.CNS ---
Date of Consult: 11/26/22 Reason for Consult: Renal failure, diuretic mngt Requesting Physician: Goldy Baker Chief Complaint: Hypertensive urgency History of Present Illness: 67F w/ PMHx of refractory Htn, COPD on home O2, HIV, pulmo Htn, atrial fibrillation status post Watchman procedure, & chronic diastolic heart failure, who p/w SOB found to be in accelerated Htn. Initial BP 209/152. She is referred to nephrology for ROHAN, diuretic, & BP mngt. Her serum creatinine is 1.2 today. Her baseline is 0.9. She has no overt proteinuria. No lower extremity edema. Allergies fentanyl Allergy (Severe, Verified 07/20/22 08:30) Hives adhesive tape Allergy (Verified 07/20/22 08:30) Rash butorphanol tartrate [From Stadol] Allergy (Verified 07/20/22 08:30) confusion metoclopramide HCl [From Reglan] Allergy (Verified 07/20/22 08:30) Shortness of breath sulfamethoxazole [From Bactrim] Allergy (Verified 07/20/22 08:30) Hives/Rash trimethoprim [From Bactrim] Allergy (Verified 07/20/22 08:30) Hives/Rash Bactrim DS Allergy (Intermediate, Uncoded 07/20/22 08:30) Nausea/Vomiting Home Medications: Raltegravir Potassium [Isentress] 1 tab PO BID 02/28/12 Sertraline [Zoloft*] 2 tab PO BID 09/15/12 Emtricitabine/Tenofov Alafenam [Descovy 200-25 mg Tablet] 1 tab PO DAILY 03/05/21 Amlodipine Besylate 1 tab PO DAILY 03/30/21 Dexlansoprazole [Dexilant] 60 mg PO DAILY 03/30/21 Clopidogrel Bisulfate [Plavix*] 1 tab PO DAILY 10/16/21 Trazodone [Desyrel*] 1 tab PO BEDTIME 10/16/21 buPROPion HCL [Wellbutrin Xl] 1 tab PO DAILY 10/16/21 Spironolactone [Aldactone*] 25 mg PO DAILY #30 tab 02/04/22 Hydromorphone [Dilaudid*] 2 mg PO DAILY 03/15/22 Losartan Potassium [Cozaar*] 50 mg PO BID #60 tablet 04/25/22 hydroCHLOROthiazide [Hydrochlorothiazide] 25 mg PO DAILY #30 tab 07/14/22 Metoprolol Tartrate 1 tab PO BID 07/20/22 - Past Medical/Surgical History Diabetic: No -: HIV- viral load currently undectable -: CAD -: Bipolar disorder -: Hypertension -: COPD on home O2 @ 2L -: Tobacco abuse -: former Alcohol abuse -: Anemia of chronic disease -: Hyperlipidemia -: GERD with hiatal hernia -: Atrial fibrillation-paroxysmal S/P Watchman procedure -: Chronic diastolic CHF -: Appendectomy Watchman procedure, -: Cholecystectomy -: left and right shoulder rotator cuff repair -: Right foot repair -: Right shoulder replacement -: right wrist -: hiatal hernia repair february 2021 -: right wrist Psychosocial/ Personal History: She lives at home. She is newly . - Family History Father Medical History: Heart disease, Hypertension, Lung disease, GI disease, Stroke, Cancer, Liver disease, Kidney disease Notes: Colon cancer Mother Medical History: Hypertension, Lung disease, GI disease, Blood disorders, Other (see notes) Notes: Epilepsy, chronic pain, leukemia - Social History Smoking Status: Unknown if ever smoked Alcohol use: No CD- Drugs: No Caffeine use: No Place of Residence: Home Review of Systems General: Unremarkable Eyes: Unremarkable ENT: Unremarkable Respiratory: Shortness of Breath, SOB with Excertion Cardiovascular: Unremarkable Gastrointestinal: Unremarkable Genitourinary: Unremarkable Musculoskeletal: Unremarkable Integumentary: Unremarkable Neurological: Unremarkable Lymphatics: Unremarkable Physical Examination Temp Pulse Resp BP Pulse Ox 98.8 F 53 16 197/89 H 100 11/26/22 12:00 11/26/22 12:00 11/26/22 12:00 11/26/22 12:00 11/26/22 12:00 General: Other (chronically ill-appearing) HEENT: Atraumatic, Normocephalic Neck: Supple, JVD not distended Respiratory: Other (symmetric chest expansion) Cardiovascular: No rubs, No murmurs Gastrointestinal: Soft and benign, No guarding Musculoskeletal: No clubbing Integumentary: No rashes, No warmth Neurological: Normal speech, Normal tone Lymphatics: No axilla or inguinal lymphadenopathy Urinary: Other (no bladder distention) External genitalia: Deferred Rectal: Deferred Laboratory Data (last 24 hrs) 11/26/22 03:29: Sodium 138, Potassium 2.7 L, BUN 30 H, Creatinine 1.22 H, Glucose 92, Magnesium 2.2 Conclusions/Impression: # ROHAN likely 2/2 accelerated Htn aggravated by Lisinopril use SCr 1.1 on adm, increased to 1.2 today Baseline SCr 0.9 Urine chemistry non-prerenal No overt proteinuria [place] by mouth fluid intake # Refractory Htn Has chronic hypokalemia and chronic serum bicarb elevation. Follow-up plasma aldosterone and plasma renin activity. No secondary hyperaldosteronism physiology on urine chemistry on 11/26/2022 Follow-up random urine chloride to further eval for other causes of Htn BP meds adjusted. Resume Spironolactone 25 mg by mouth daily. # Hypokalemia KCl repletion prn Resume viktor as above # COPD on home O2 O2 supplementation when necessary Inhalers, nebs, pulmonary toilet, incentive spirometry # Acute respiratory failure secondary to COPD exacerbation +/- acute on chronic diastolic heart failure COPD mngt as above # Pulmonary hypertension likely secondary to COPD BNP significantly elevated TTE in June 2022 showed normal LVEF at 61%, mild mitral regurgitation, mild tricuspid regurgitation Chest CT in August 2022 +severely dilated main pulmonary artery COPD management as above # Generalized weakness, mechanical falls PT/OT # Paroxysmal atrial fibrillation Status post watchman procedure On plavix Per other services # HIV Per ID service
[2022-11-26] MEDS: HYDRALAZINE HCL 20 MG/ML VIAL IV PRN (16:36)
[2022-11-26] MEDS: TRAMADOL HCL 50 MG TAB PO PRN (16:41)
[2022-11-26 18:03] LABS: UR PROTEIN 23.1 mg/dL (<11.9); Urine Protein/Creatinine Ratio 0.25 ratio (<0.15)
[2022-11-26] MEDS: TRAZODONE 50 MG TABLET PO PRN (21:27)
[2022-11-27 04:21] LABS: Magnesium 2.4 mg/dL (1.6-2.4); Potassium 3.2 mEq/L (3.5-5.1)
[2022-11-27] MEDS ORDERED: POTASSIUM CL SA 10 MEQ TAB PO ONE (04:50)
[2022-11-27] MEDS: HYDRALAZINE HCL 20 MG/ML VIAL IV PRN ×3 (05:25→23:42)
--- NOTE | 2022-11-27 07:28 | P.PN ---
Date of Service: 11/27/22 Subjective: not feeling well; has "kidney pain" today, left CVA pain/tenderness straining when urinating, feels like shes not fully emptying her bladder felt lightheaded/dizzy after working with PT, felt like she might pass out otherwise no new / worsening problems ROS: 10 point ROS as noted above, otherwise negative Physical Exam: GEN: Alert, oriented, NAD HEENT: Normal conjunctiva, sclera anicteric CV: Regular rate and rhythm, no edema Pulm: Nonlabored respirations on 4L NC at rest, diminished at bases b/l, slight wheeze Integumentary: No rashes Neuro: Normal speech, normal affect vitals reviewed Problem List: Hypertensive urgency with underlying primary hypertension/medical noncompliance ROHAN hypokalemia Acute on chronic diastolic CHF vs COPD exacerbation hx of recurrent falls Paroxysmal atrial fibrillation s/p Watchman procedure HIV Hypertensive urgency with underlying primary hypertension/medical noncompliance ROHAN patient uncertain on what she is supposed to be taking patient states she thinks she is supposed to be taking metoprolol, hydralazine, lisinopril, norvasc, and she thinks lasix she reports being out of several of these medications for a few days cr uptrending, pt with some h/o CKD and received low dose toradol and HCTZ x1 in addition to lasix, leading to hypokalemia, and likely bump in renal function Nephrology consulted HCTZ dc'd noted severe pulmonary artery dilation on recent CT chest workup ordered restart on spironolactone - recommended on previous hospitalizations, but patient not currently taking 11/27 - reports left CVA pain/tenderness straining when urinating, feels like shes not fully emptying her bladder Blood cultures(11/24): NGTD UA ordered, Urine culture ordered Renal u/s ordered r/o obstruction/infxn, L CVA tender Acute on chronic diastolic CHF vs COPD exacerbation CXR (11/24): no acute abnormalities no significant edema on exam dc lasix 11/26 suspect severe pulm htn and COPD , does not follow regularly with a pul carnival worker, consult Dr. Sosa last echo performed in June shows normal EF. Pulmonology consulted added nebs/inhaler hx of recurrent falls legs have been feeling weak/wobbly for weeks; feels they will give out, +unsteady balance CT head (July 2022): No acute intracranial abnormality. Brain MRI (september 2021): negative likely due to a combination of home medications, +hypertension PT consulted; walker Paroxysmal atrial fibrillation s/p Watchman procedure Patient reports that she takes Plavix at home had Watchman procedure approxima tely 1 to 2 years ago. Continue Plavix, monitor on telemetry. HIV Continue home medications, patient reports she is compliant with her antiretrovirals Patient says her will bring her home medication later VTE: Lovenox Code: Full Dispo: Home with Home health ~1-2 days ss/cm consulted
[2022-11-27] MEDS ORDERED: SPIRONOLACTONE 25 MG TABLET PO SCH (09:00)
[2022-11-27] MEDS: METOPROLOL TAR 50 MG TAB PO SCH ×2 (09:09→21:22)
[2022-11-27] MEDS: CLOPIDOGREL 75 MG TABLET PO SCH (09:09)
[2022-11-27] MEDS: AMLODIPINE 10 MG TAB PO SCH (09:09)
[2022-11-27] MEDS: LIDOCAINE 4% PATCH TOP SCH (09:10)
[2022-11-27] MEDS: clonazePAM 0.5 MG TAB PO PRN ×2 (09:15→16:01)
--- NOTE | 2022-11-27 10:08 | P.CNS ---
Date of Consult: 11/27/22 Reason for Consult: COPD hypertension Chief Complaint: Hypertensive urgency History of Present Illness: Patient is 67 years of age history of HIV hypertension A-fib has had a Watchman procedure chronic diastolic heart failure. He has been having shortness of breath for the past 2 months in which she was admitted with hypertension emergency still very short of breath not using any long-acting bronchodilators at home uses albuterol denies any fever chills cough phlegm apparently she is compliant with her other medications still has significant shortness of breath on mild exertion home O2 Allergies fentanyl Allergy (Severe, Verified 07/20/22 08:30) Hives adhesive tape Allergy (Verified 07/20/22 08:30) Rash butorphanol tartrate [From Stadol] Allergy (Verified 07/20/22 08:30) confusion metoclopramide HCl [From Reglan] Allergy (Verified 07/20/22 08:30) Shortness of breath sulfamethoxazole [From Bactrim] Allergy (Verified 07/20/22 08:30) Hives/Rash trimethoprim [From Bactrim] Allergy (Verified 07/20/22 08:30) Hives/Rash Bactrim DS Allergy (Intermediate, Uncoded 07/20/22 08:30) Nausea/Vomiting Home Medications: Raltegravir Potassium [Isentress] 1 tab PO BID 02/28/12 Sertraline [Zoloft*] 2 tab PO BID 09/15/12 Emtricitabine/Tenofov Alafenam [Descovy 200-25 mg Tablet] 1 tab PO DAILY 03/05/21 Amlodipine Besylate 1 tab PO DAILY 03/30/21 Dexlansoprazole [Dexilant] 60 mg PO DAILY 03/30/21 Clopidogrel Bisulfate [Plavix*] 1 tab PO DAILY 10/16/21 Trazodone [Desyrel*] 1 tab PO BEDTIME 10/16/21 buPROPion HCL [Wellbutrin Xl] 1 tab PO DAILY 10/16/21 Spironolactone [Aldactone*] 25 mg PO DAILY #30 tab 02/04/22 Hydromorphone [Dilaudid*] 2 mg PO DAILY 03/15/22 Losartan Potassium [Cozaar*] 50 mg PO BID #60 tablet 04/25/22 hydroCHLOROthiazide [Hydrochlorothiazide] 25 mg PO DAILY #30 tab 07/14/22 Metoprolol Tartrate 1 tab PO BID 07/20/22 - Past Medical/Surgical History Diabetic: No -: HIV- viral load currently undectable -: CAD -: Bipolar disorder -: Hypertension -: COPD on home O2 @ 2L -: Tobacco abuse -: former Alcohol abuse -: Anemia of chronic disease -: Hyperlipidemia -: GERD with hiatal hernia -: Atrial fibrillation-paroxysmal S/P Watchman procedure -: Chronic diastolic CHF -: Appendectomy Watchman procedure, -: Cholecystectomy -: left and right shoulder rotator cuff repair -: Right foot repair -: Right shoulder replacement -: right wrist -: hiatal hernia repair february 2021 -: right wrist Psychosocial/ Personal History: She lives at home. She is newly . - Family History Father Medical History: Heart disease, Hypertension, Lung disease, GI disease, Stroke, Cancer, Liver disease, Kidney disease Notes: Colon cancer Mother Medical History: Hypertension, Lung disease, GI disease, Blood disorders, Other (see notes) Notes: Epilepsy, chronic pain, leukemia - Social History Smoking Status: Unknown if ever smoked Alcohol use: No CD- Drugs: No Caffeine use: No Place of Residence: Home Review of Systems 10-point ROS is otherwise unremarkable General: Weakness Respiratory: Shortness of Breath Physical Examination Temp Pulse Resp BP Pulse Ox 97.8 F 52 15 181/85 H 99 11/27/22 04:00 11/27/22 09:09 11/27/22 04:00 11/27/22 09:09 11/27/22 04:00 General: Alert, Oriented x3 HEENT: PERRLA Neck: Supple Respiratory: Clear to auscultation bilaterally, Diminished Cardiovascular: No edema, Regular rate/rhythm, Normal S1 S2 Gastrointestinal: Normal bowel sounds, Soft and benign, No ascites Musculoskeletal: No swelling - Problems (1) COPD exacerbation Current Visit: No Status: Acute Plan: Patient is 67 years of age with a history of COPD not using any long-acting bronchodilators at home and albuterol only history is reviewed patient is mildly anemic in the hospital add some Dulera 2 puffs twice a day dose prednisone condition satisfactory pressure still mildly elevated x-ray shows very impressive cardiomegaly normal echocardiogram Labs reviewed
[2022-11-27] MEDS: predniSONE 20 MG TAB PO SCH ×2 (10:42→21:22)
[2022-11-27] MEDS: DULERA 200/5 (MOMETASONE/FORMOTEROL) INHALER IH SCH ×2 (10:42→21:21)
[2022-11-27 11:07] LABS: Urine Bacteria <20 /HPF (<20); Urine Bilirubin NEGATIVE (Negative); Urine Blood Negative (Negative); Urine Clarity Extremely Turbid (Clear); Urine Color Light-Yellow (Yellow); Urine Glucose NEGATIVE (Negative); Urine Protein TRACE (Negative); Urine RBC <5 /HPF (None Seen); Urine Urobilinogen Normal (Normal); Urine pH 6.5 (5.0-7.0)
[2022-11-27] MEDS: IPRATROPIUM BROM 0.5MG/2.5ML IH SCH ×2 (14:20→19:40)
--- NOTE | 2022-11-27 14:22 | RAD REPORT ---
EXAM DESCRIPTION: US - Renal Ultrasound-Complete - 11/27/2022 1:51 pm CLINICAL HISTORY: Abdominal pain COMPARISON: September 2022 CT FINDINGS: The right kidney measures 11 cm with a normal echotexture. 4.1 centimeter simple cyst right kidney. Additional smaller simple cyst. The left kidney measures 11 cm with a normal echotexture. 5.8 centimeter simple cyst. Additional smal ler cyst seen on the recent CT scan was not well imaged on today's exam secondary to technical factor s Hydronephrosis is not seen. No gross abnormality of bladder IMPRESSION: Bilateral renal cysts
--- NOTE | 2022-11-27 17:19 | P.PN ---
Subjective Date of Service: 11/27/22 Chief Complaint: Hypertensive urgency 67F w/ PMHx of refractory Htn, COPD on home O2, HIV, pulmo Htn, atrial fibrillation status post Watchman procedure, & chronic diastolic heart failure, who p/w SOB found to be in accelerated Htn. Initial BP 209/152. She is referred to nephrology for ROHAN, diuretic, & BP mngt. Her serum creatinine is 1.2 on admission Her baseline is 0.9. She has no overt proteinuria. No lower extremity edema. Physical exam General: AAOx3, in mild distress CHEST; CTAB, no wheezes or rales HEART : RRR. Normal S1,2 no murmur or rub Abd: soft, Nt Ext: no edema Skin : No rash # ROHAN likely 2/2 accelerated Htn aggravated by Lisinopril use SCr 1.1 on adm, increased to 1.2 today Baseline SCr 0.9 Urine chemistry non-prerenal No overt proteinuria [place] by mouth fluid intake # Refractory Htn Has chronic hypokalemia and chronic serum bicarb elevation. Follow-up plasma aldosterone and plasma renin activity. cont aldactone and titrtae as per BP # Hypokalemia KCl repletion prn Resume viktor as above # COPD on home O2 O2 supplementation when necessary Inhalers, nebs, pulmonary toilet, incentive spirometry # Acute respiratory failure secondary to COPD exacerbation +/- acute on chronic diastolic heart failure COPD mngt as above # Pulmonary hypertension likely secondary to COPD BNP significantly elevated TTE in June 2022 showed normal LVEF at 61%, mild mitral regurgitation, mild tricuspid regurgitation Chest CT in August 2022 +severely dilated main pulmonary artery COPD management as above # Generalized weakness, mechanical falls PT/OT # Paroxysmal atrial fibrillation Status post watchman procedure On plavix Per other services # HIV Per ID service time spend exam the patient face to face , discussing with patient , reviewing la and radiology date, placing order , discussing the case with staff and with other team review consultant and hospitalist 55 min. Physical Examination - Vital Signs Temperature: 96.8 F Blood Pressure: 181/85 Pulse: 52 Respirations: 18 Pulse Ox (%): 96
[2022-11-27] MEDS: TRAZODONE 50 MG TABLET PO PRN (21:22)
[2022-11-27] MEDS: SPIRONOLACTONE 25 MG TABLET PO SCH (21:22)
[2022-11-27] MEDS: TRAMADOL HCL 50 MG TAB PO PRN (23:47)
[2022-11-28] MEDS: IPRATROPIUM BROM 0.5MG/2.5ML IH SCH ×4 (01:55→20:55)
[2022-11-28] MEDS: clonazePAM 0.5 MG TAB PO PRN ×2 (03:54→19:33)
[2022-11-28 04:17] LABS: Magnesium 2.5 mg/dL (1.6-2.4); Potassium 3.9 mEq/L (3.5-5.1)
[2022-11-28] MEDS ORDERED: POTASSIUM CL SA 10 MEQ TAB PO ONE ×2 (04:30→05:22)
--- NOTE | 2022-11-28 07:29 | P.PN ---
Date of Service: 11/28/22 Subjective: doing okay, breathing slowly improving burning sensation when peeing. +straining continues; ongoing for ~1 week left CVA pain continues ~unchanged Afebrile ROS: 10 point ROS as noted above, otherwise negative Physical Exam: GEN: Alert, oriented, NAD HEENT: Normal conjunctiva, sclera anicteric CV: Regular rate and rhythm, no edema Pulm: Nonlabored respirations on 3L NC at rest, diminished at bases b/l, mild wheeze Integumentary: No rashes Neuro: Normal speech, normal affect L CVA tenderness. mild vitals reviewed Problem List: Hypertensive urgency with underlying primary hypertension/medical noncompliance ROHAN UTI, suspected Acute on chronic diastolic CHF vs COPD exacerbation hypokalemia hx of recurrent falls Paroxysmal atrial fibrillation s/p Watchman procedure ?NIDDM2, unconfirmed HIV Hypertensive urgency with underlying primary hypertension/medical noncompliance ROHAN patient uncertain on what anti-hypertensives she is supposed to be taking states she thinks she is supposed to be taking metoprolol, hydralazine, lisinopril, norvasc, and she thinks lasix she reports being out of several of these medications for a few days cr uptrending, pt with some h/o CKD and received low dose toradol and HCTZ x1 in addition to lasix, leading to hypokalemia, and likely bump in renal function now improved; HCTZ dc'd Nephrology consulted noted severe pulmonary artery dilation on recent CT chest workup ordered restart on spironolactone - recommended on previous hospitalizations, but patient not currently taking titrate as appropriate UTI, suspected 11/27 - reports left CVA pain/tenderness 11/28 now states she has been having symptoms for 1 week - ongoing intermittent burning sensation when peeing. +straining when urinating, feels like shes not fully emptying her bladder Renal u/s (11/27): Bilateral renal cysts UA: 500 LE, +WBC, -RBC, <20 bacteria, trace protein blood cultures: NGTD Urine culture: 2+ GNR Started IV rocephin (11/28-) Acute on chronic diastolic CHF vs COPD exacerbation CXR (11/24): no acute abnormalities ; no significant edema on exam dc lasix 11/26 suspect severe pulm htn and COPD , does not follow regularly with a director of cardiology service line, consult Dr. Sosa last echo performed in June shows normal EF. Pulmonology consulted added nebs/inhaler hx of recurrent falls legs have been feeling weak/wobbly for weeks; feels they will give out, +unsteady balance CT head (July 2022): No acute intracranial abnormality. Brain MRI (september 2021): negative likely due to a combination of home medications, +hypertension PT consulted; walker Paroxysmal atrial fibrillation s/p Watchman procedure Patient reports that she takes Plavix at home had Watchman procedure a pproximately 1 to 2 years ago. remains in sinus rhythm ?NIDDM2, unconfirmed last a1c was 6.5 in 2019 A1c: pending HIV Continue home medications, patient reports she is compliant with her antiretrovirals Patient states shes been trying to get family to bring medication. No one has brought it yet VTE: Lovenox Code: Full Dispo: Home with Home health ~1-2 days ss/cm consulted
[2022-11-28] MEDS: SPIRONOLACTONE 25 MG TABLET PO SCH ×2 (09:02→20:40)
[2022-11-28] MEDS: METOPROLOL TAR 50 MG TAB PO SCH ×2 (09:02→20:40)
[2022-11-28] MEDS: CLOPIDOGREL 75 MG TABLET PO SCH (09:02)
[2022-11-28] MEDS: LIDOCAINE 4% PATCH TOP SCH (09:03)
[2022-11-28] MEDS: AMLODIPINE 10 MG TAB PO SCH (09:03)
[2022-11-28] MEDS: DULERA 200/5 (MOMETASONE/FORMOTEROL) INHALER IH SCH ×2 (09:03→20:39)
[2022-11-28] MEDS: predniSONE 20 MG TAB PO SCH ×2 (09:03→20:38)
[2022-11-28] MEDS: CEFTRIAXONE 1,000 MG in NA CHLORIDE 0.9% 50 ML IVPB SCH (10:21)
[2022-11-28] MEDS: HYDRALAZINE HCL 20 MG/ML VIAL IV PRN ×2 (11:53→20:43)
[2022-11-28] MEDS: TRAMADOL HCL 50 MG TAB PO PRN ×2 (11:58→19:32)
--- NOTE | 2022-11-28 12:55 | P.PN ---
Subjective Date of Service: 11/28/22 Chief Complaint: Hypertensive urgency 67F w/ PMHx of refractory Htn, COPD on home O2, HIV, pulmo Htn, atrial fibrillation status post Watchman procedure, & chronic diastolic heart failure, who p/w SOB found to be in accelerated Htn. Initial BP 209/152. She is referred to nephrology for ROHAN, diuretic, & BP mngt. Her serum creatinine is 1.2 on admission Her baseline is 0.9. She has no overt proteinuria. No lower extremity edema. today No overnight evens P controlled cont current meds Physical exam General: AAOx3, in mild distress CHEST; CTAB, no wheezes or rales HEART : RRR. Normal S1,2 no murmur or rub Abd: soft, Nt Ext: no edema Skin : No rash # ROHAN likely 2/2 accelerated Htn aggravated by Lisinopril use SCr 1.1 on adm, increased to 1.2 today Baseline SCr 0.9 Urine chemistry non-prerenal No overt proteinuria [place] by mouth fluid intake # Refractory Htn Has chronic hypokalemia and chronic serum bicarb elevation. Follow-up plasma aldosterone and plasma renin activity. cont aldactone and titrtae as per BP # Hypokalemia KCl repletion prn Resume viktor as above # COPD on home O2 O2 supplementation when necessary Inhalers, nebs, pulmonary toilet, incentive spirometry # Acute respiratory failure secondary to COPD exacerbation +/- acute on chronic diastolic heart failure COPD mngt as above # Pulmonary hypertension likely secondary to COPD BNP significantly elevated TTE in June 2022 showed normal LVEF at 61%, mild mitral regurgitation, mild tricuspid regurgitation Chest CT in August 2022 +severely dilated main pulmonary artery COPD management as above # Generalized weakness, mechanical falls PT/OT # Paroxysmal atrial fibrillation Status post watchman procedure On plavix Per other services # HIV Per ID service time spend exam the patient face to face , discussing with patient , reviewing la and radiology date, placing order , discussing the case with staff and with other team home service consultant and hospitalist 55 min. Physical Examination - Vital Signs Temperature: 97.1 F Blood Pressure: 185/91 Pulse: 52 Respirations: 18 Pulse Ox (%): 100
[2022-11-28] MEDS: TRAZODONE 50 MG TABLET PO PRN (20:39)
[2022-11-28] MEDS: SERTRALINE HCL 100 MG TAB PO SCH (22:33)
[2022-11-29] MEDS: IPRATROPIUM BROM 0.5MG/2.5ML IH SCH ×4 (02:25→19:55)
[2022-11-29] MEDS: HYDRALAZINE HCL 20 MG/ML VIAL IV PRN ×2 (03:21→17:20)
[2022-11-29] MEDS: TRAMADOL HCL 50 MG TAB PO PRN ×3 (03:23→21:30)
[2022-11-29 06:58] LABS: Absolute Lymphocytes (CBC) 0.7 K/uL (0.7-4.9); Hematocrit 31.7 % (36.0-45.0); Lymphocytes % 11.4 % (15.3-44.8); MCV 83.2 fL (80-100); MPV 7.3 fL (7.6-11.3); RBC Red Blood Cell Count 3.81 M/uL (3.86-4.86)
[2022-11-29 07:07] LABS: Magnesium 2.4 mg/dL (1.6-2.4); Potassium 4.2 mEq/L (3.5-5.1)
--- NOTE | 2022-11-29 07:11 | P.PN ---
Date of Service: 11/29/22 Subjective: doing okay, breathing continues to improve still feeling weak, +feels legs are buckling (acute on chronic) BP improving slightly afebrile +dysuria ROS: 10 point ROS as noted above, otherwise negative Physical Exam: GEN: Alert, oriented, NAD HEENT: Normal conjunctiva, sclera anicteric CV: Regular rate and rhythm, no edema Pulm: Nonlabored respirations on 3L NC at rest, diminished at bases b/l, mild wheeze Integumentary: No rashes Neuro: Normal speech, normal affect L CVA tenderness. mild vitals reviewed Problem List: Hypertensive urgency with underlying primary hypertension/medical noncompliance ROHAN UTI, E. coli Acute on chronic diastolic CHF vs COPD exacerbation hypokalemia hx of recurrent falls Paroxysmal atrial fibrillation s/p Watchman procedure ?NIDDM2, unconfirmed HIV Hypertensive urgency with underlying primary hypertension/medical noncompliance ROHAN patient uncertain on what anti-hypertensives she is supposed to be taking states she thinks she is supposed to be taking metoprolol, hydralazine, lisinopril, norvasc, and she thinks lasix she reports being out of several of these medications for a few days cr briefly worsened - pt with some h/o CKD and received low dose toradol and HCTZ x1 in addition to lasix, leading to hypokalemia, and likely bump in renal function now improved; HCTZ dc'd Nephrology consulted noted severe pulmonary artery dilation on recent CT chest workup ordered restart on spironolactone - recommended on previous hospitalizations, but patient not currently taking / denies ever getting prescription recently titrate as appropriate UTI, E. coli 11/27 - reports left flank / CVA pain/tenderness 11/28 now states she has been having symptoms for 1 week - ongoing intermittent burning sensation when peeing. +straining when urinating, feels like shes not fully emptying her bladder Renal u/s (11/27): Bilateral renal cysts UA: 500 LE, +WBC, -RBC, <20 bacteria, trace protein Urine culture: E. coli continue IV rocephin (11/28-) Acute on chronic diastolic CHF vs COPD exacerbation CXR (11/24): no acute abnormalities ; no significant edema on exam dc lasradha 11/26 suspect severe pulm htn and COPD , does not follow regularly with a rn eligibility, consult Dr. Sosa last echo performed in June shows normal EF. Pulmonology consulted added nebs/inhaler hx of recurrent falls legs have been feeling weak/wobbly for weeks; feels they will give out, +unsteady balance CT head (July 2022): No acute intracranial abnormality. Brain MRI (september 2021): negative likely due to a combination of home medications, +hypertension PT consulted; walker Paroxysmal atrial fibrillation s/p Watchman procedure Patient reports that she takes Plavix at home had Watchman procedure approximately 1 to 2 years ago. remains in sinus rhythm ?NIDDM2, unconfirmed last a1c was 6.5 in 2019 A1c: pending HIV Continue home medications, patient reports she is compliant with her antiretrovirals Patient states shes been trying to get family to bring medication. No one has brought it yet VTE: Lovenox Code: Full Dispo: Home with Home health ~1 day ss/cm consulted
[2022-11-29] MEDS: CLOPIDOGREL 75 MG TABLET PO SCH (08:35)
[2022-11-29] MEDS: SPIRONOLACTONE 25 MG TABLET PO SCH ×2 (08:35→21:29)
[2022-11-29] MEDS: CEFTRIAXONE 1,000 MG in NA CHLORIDE 0.9% 50 ML IVPB SCH (08:35)
[2022-11-29] MEDS: METOPROLOL TAR 50 MG TAB PO SCH ×2 (08:36→21:28)
[2022-11-29] MEDS: DULERA 200/5 (MOMETASONE/FORMOTEROL) INHALER IH SCH ×2 (08:36→21:30)
[2022-11-29] MEDS: BUPROPION HCL XL 150 MG TAB PO SCH (08:36)
[2022-11-29] MEDS: predniSONE 20 MG TAB PO SCH (08:36)
[2022-11-29] MEDS: SERTRALINE HCL 100 MG TAB PO SCH ×2 (08:36→21:29)
[2022-11-29] MEDS: BUSPIRONE HCL 15 MG TABLET PO SCH ×2 (08:36→21:29)
[2022-11-29] MEDS: LIDOCAINE 4% PATCH TOP SCH (08:36)
[2022-11-29] MEDS: AMLODIPINE 10 MG TAB PO SCH (08:36)
--- NOTE | 2022-11-29 11:57 | P.PN ---
Subjective Date of Service: 11/29/22 Chief Complaint: COPD exacerbation hypertensive emergency Subjective: Improving (Patient is improving still feeling weak shortness of breath on exertion) Review of Systems General: Weakness Respiratory: Shortness of Breath Physical Examination - Vital Signs Temperature: 97.0 F Blood Pressure: 167/95 Pulse: 58 Respirations: 18 Pulse Ox (%): 99 - Physical Exam General: Alert, Oriented x3 Respiratory: Clear to auscultation bilaterally, Diminished, Expiratory wheezes Cardiovascular: No edema, Regular rate/rhythm Assessment And Plan - Current Problems (Diagnosis) (1) COPD exacerbation Current Visit: No Status: Acute Plan: Patient admitted with COPD exacerbation and hypertensive emergency she was not using her medications any Dulera as making her have some headaches will resume her home inhaler which I will fax from the office use dose of prednisone causing weakness of her legs and is on ceftriaxone for E. coli physical therapy discharge planning patient lives in a motel has home O2 but pressure is better controlled
[2022-11-29] MEDS: clonazePAM 0.5 MG TAB PO PRN (16:57)
--- NOTE | 2022-11-29 21:11 | P.PN ---
Date of Service: 11/30/22 Subjective: ROS: 10 point ROS as noted above, otherwise negative Physical Exam: GEN: Alert, oriented, NAD HEENT: Normal conjunctiva, sclera anicteric CV: Regular rate and rhythm, no edema Pulm: Nonlabored respirations on 2L NC at rest, diminished at bases b/l, mild wheeze Integumentary: No rashes Neuro: Normal speech, normal affect L CVA tenderness. mild Problem List: 1. Hypertensive urgency with underlying primary hypertension/medical noncompliance 2. ROHAN 3. UTI, E. coli 4. Acute on chronic diastolic CHF vs COPD exacerbation 5. hypokalemia 6. hx of recurrent falls 7. Paroxysmal atrial fibrillation s/p Watchman procedure 8. HIV PLAN patient uncertain on what anti-hypertensives she is supposed to be taking states she thinks she is supposed to be taking metoprolol, hydralazine, lisinopril, norvasc, and she thinks lasix she reports being out of several of these medications for a few days Nephrology consulted - noted severe pulmonary artery dilation on recent CT chest restart on spironolactone - recommended on previous hospitalizations, but patient not currently taking / denies ever getting prescription recently 11/27 - reports left flank / CVA pain/tenderness 11/28 now states she has been having symptoms for 1 week - ongoing intermittent burning sensation when peeing. +straining when urinating, feels like shes not fully emptying her bladder Renal u/s (11/27): Bilateral renal cysts UA: 500 LE, +WBC, -RBC, <20 bacteria, trace protein Urine culture: E. coli continue IV rocephin (11/28-) CXR (11/24): no acute abnormalities ; no significant edema on exam dc lasix 11/26 does not follow regularly with a director professional services, consult Dr. Sosa last echo performed in June shows normal EF. Pulmonology consulted added nebs/inhaler legs have been feeling weak/wobbly for weeks; feels they will give out, +unsteady balance CT head (July 2022): No acute intracranial abnormality. Brain MRI (september 2021): negative likely due to a combination of home medications, +hypertension PT consulted; walker Continue home HIV medications, patient reports she is compliant with her antiretrovirals Patient states shes been trying to get family to bring medication. No one has brought it yet VTE: Malgorzata ss/cm consulted for home health
[2022-11-29] MEDS: TRAZODONE 50 MG TABLET PO PRN (21:29)
[2022-11-29] MEDS: predniSONE 10 MG TAB PO SCH (21:30)
[2022-11-30] MEDS: IPRATROPIUM BROM 0.5MG/2.5ML IH SCH ×3 (02:15→13:55)
--- NOTE | 2022-11-30 03:07 | PN ---
Date of Progress Note: 11/29/2022 Chief Complaint: Acute kidney injury, accelerated by uncontrolled hypertension and secondary to arianna nopril. Subjective: The patient is a 67-year-old woman. The patient has refractory hypertension; COPD, on h ome oxygen; HIV; pulmonary hypertension; atrial fibrillation; chronic diastolic heart failure; histor y of chronic dyspnea. The patient came to the hospital and initial blood pressure was 209/152. The patient is referred to Nephrology for acute kidney injury and treatment for blood pressure and diuret ic adjustment. Serum creatinine level was 1.2 on admission. Baseline creatinine level is 0.9. The patient has no overt proteinuria. Denies history of lower extremity edema. Review of Systems: Patient is feeling better. Physical Examination: Lungs: Clear to auscultation bilaterally. Heart: S1, S2. Abdomen: Soft, benign. Extremities: No edema. Impression And Plan: 1.Acute kidney injury secondary to severe prerenal azotemia, uncontrolled accelerated hypertension, and GREG inhibitor effect. The patient was taken off GREG inhibitor. Serum creatinine level is stabil izing. 2.There is no overt proteinuria. The patient will have urinalysis to check for active urinary sedim ent. 3.Refractory hypertension. Patient has chronic hypokalemia and chronic metabolic alkalosis, elevate d serum bicarbonate. Of note, the patient has chronic obstructive pulmonary disease and ABG can be d one to verify acid base . Followup plasma aldosterone and plasma renin activity is pending . Continue Aldactone although interpretation of plasma aldosterone and plasma renin activity may be difficult if the patient was taking Aldactone at the same time when blood test was obtained. 4.Hypokalemia. Potassium replacement was started and patient was resumed on spironolactone. Monito r electrolytes, including magnesium and phosphorus. 5.Chronic obstructive pulmonary disease, on home oxygen. Continue inhalers. 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 Continue inhalers and patient may benefit from diuretic. Les thompson currently on spironolactone and monitor electrolytes and renal panel. EB/MODL Voice ID: [id number] Report ID: [id number]
[2022-11-30 07:02] LABS: Magnesium 2.4 mg/dL (1.6-2.4); Potassium 4.1 mEq/L (3.5-5.1)
[2022-11-30] MEDS ORDERED: VALSARTAN 160 MG TAB PO SCH (09:00)
[2022-11-30] MEDS: BUSPIRONE HCL 15 MG TABLET PO SCH (09:01)
[2022-11-30] MEDS: SPIRONOLACTONE 25 MG TABLET PO SCH (09:02)
[2022-11-30] MEDS: METOPROLOL TAR 50 MG TAB PO SCH (09:02)
[2022-11-30] MEDS: BUPROPION HCL XL 150 MG TAB PO SCH (09:02)
[2022-11-30] MEDS: AMLODIPINE 10 MG TAB PO SCH (09:03)
[2022-11-30] MEDS: predniSONE 10 MG TAB PO SCH (09:03)
[2022-11-30] MEDS: CLOPIDOGREL 75 MG TABLET PO SCH (09:03)
[2022-11-30] MEDS: SERTRALINE HCL 100 MG TAB PO SCH (09:03)
[2022-11-30] MEDS: CEFTRIAXONE 1,000 MG in NA CHLORIDE 0.9% 50 ML IVPB SCH (09:04)
[2022-11-30] MEDS: LIDOCAINE 4% PATCH TOP SCH (09:04)
[2022-11-30] MEDS: HYDRALAZINE HCL 20 MG/ML VIAL IV PRN (09:05)
[2022-11-30] MEDS: DULERA 200/5 (MOMETASONE/FORMOTEROL) INHALER IH SCH (09:08)
[2022-11-30] MEDS: clonazePAM 0.5 MG TAB PO PRN (09:11)
[2022-11-30 10:00] VITALS: TEMP 97.8
[2022-11-30 12:36] VITALS: BP 140/72
[2022-11-30] MEDS: TRAMADOL HCL 50 MG TAB PO PRN (13:56)
--- NOTE | 2022-11-30 15:50 | PN ---
Date of Progress Note: 11/30/2022 Subjective: The patient was admitted with acute kidney injury and proteinuria. Acute kidney injury has been resolved. The patient had also respiratory failure secondary to COPD. The patient had uncontrolled blood pressure. After adjusting medication, kidney function has been improved, hypertension has been controlled. Physical Examination: Vital Signs: Blood pressure 140/72, pulse of 52. Chest: Clear to auscultation. Heart: S1, S2. Regular. Abdomen: Soft, nontender. Extremity: Trace edema. Neurologic: Alert. No focality. Laboratory Data: Sodium 138, potassium 4.1, bicarb 26, BUN 31, creatinine 0.8, calcium 8.64, magnesium 2.4, hemoglobin 10.1. Current Medications: The patient on include; 1. Ceftriaxone. 2. Plavix. 3. Amlodipine 10 mg. 4. Metoprolol 100 b.i.d. 5. Spironolactone 25 b.i.d. 6. Valsartan 160 b.i.d. 7. Zoloft. 8. Trazodone. 9. Prednisone 10 t.i.d. Assessment And Plan: 1. Acute kidney injury secondary to prerenal, recovered, resolved. Challenged with ARB, tolerated. 2. Hypertension, controlled, optimal. Continue current treatment. 3. Hyperkalemia, resolved. 4. Chronic obstructive pulmonary disease with exacerbation, currently stable. Time spent examining the patient [id number], reviewing data, lab and radiology, placing order, discussing the case with the software team leader including hospitalist and nursing staff more than 35 minutes. JAROCHO Voice ID: [id number] Report ID: [id number] ZULEIKA
[2022-11-30 16:28] VITALS: O2SAT 98
--- NOTE | 2022-12-01 17:03 | EKG ---
Test Date: 2022-11-30 Test Time: 14:09:06 Emblem Cutter: STEPHANIE MEASUREMENT RESULTS: Intervals: Rate: 55 NM: 180 QRSD: 90 QT: 478 QTc: 457 [place]: P: 6 NM: 180 QRS: 30 T: 23 INTERPRETIVE STATEMENTS: Sinus bradycardia Voltage criteria for left ventricular hypertrophy Nonspecific T wave abnormality Abnormal ECG Compared to ECG 11/24/2022 14:48:33 First degree AV block no longer present Prolonged QT interval no longer present T-wave abnormality still present Electronically Signed On 12-01-22 17:02:41 CDT by Mike Lund
== END 2022-11-30 15:22 | disposition home health service (06) | DRG 304 ==
LOC: ER 13:53 → ERHOLD 18:42 → 4TH 19:55 → OBSVTOIN 11-26 12:06
PROVIDERS: ADMIT Hospitalist; ATTEND Hospitalist
DX: I16.0 Hypertensive urgency (principal); J96.00 Acute respiratory failure, unspecified whether with hypoxia or hypercapnia; N17.9 Acute kidney failure, unspecified; J44.1 Chronic obstructive pulmonary disease with (acute) exacerbation; N39.0 Urinary tract infection, site not specified; E87.3 Alkalosis; I50.32 Chronic diastolic (congestive) heart failure; I11.0 Hypertensive heart disease with heart failure; E78.5 Hyperlipidemia, unspecified; K21.9 Gastro-esophageal reflux disease without esophagitis; E87.6 Hypokalemia; E87.5 Hyperkalemia; I27.20 Pulmonary hypertension, unspecified; N28.1 Cyst of kidney, acquired; I48.0 Paroxysmal atrial fibrillation; I25.10 Atherosclerotic heart disease of native coronary artery without angina pectoris; Z21 Asymptomatic human immunodeficiency virus [HIV] infection status; Z88.5 Allergy status to narcotic agent; Z88.8 Allergy status to other drugs, medicaments and biological substances; Z88.1 Allergy status to other antibiotic agents; Z79.02 Long term (current) use of antithrombotics/antiplatelets; Z91.81 History of falling; Z99.81 Dependence on supplemental oxygen; Z90.49 Acquired absence of other specified parts of digestive tract; Z96.611 Presence of right artificial shoulder joint; Z91.048 Other nonmedicinal substance allergy status; Z79.899 Other long term (current) drug therapy; Z87.891 Personal history of nicotine dependence; Z91.199 Patient's noncompliance with other medical treatment and regimen due to unspecified reason; B96.20 Unspecified Escherichia coli [E. coli] as the cause of diseases classified elsewhere
CPT/HCPCS: 36415; 71045; 76770; 80048; 80076; 81001; 82088; 82570; 83036; 83735; 83880; 83935; 84132; 84156; 84244; 84300; 84484; 85025; 85610; 85730; 87040; 87077; 87086; 87088; 87186; 93005; 96374; 96375; 97110; 97116; 97162; 97530; 99285; G0378; J0360; J0696; J1940; J2001; J3480; J3535; J7040; J7050; J7512; J7644

== ENCOUNTER 2022-12-19 02:45 | Emergency (ER) | payer OTHER ==
--- OUTSIDE RECORDS SUMMARY | 2022-12-19 03:12 | XMS REPORT | Continuity of Care Document ---
:1955 Author Organization [facility] t Address [address] [place] [address] Care Team Providers Name Role Phone Urmila [...] Attending Clinician Unavailable Robbi Bal Attending Clinician [place] Attending Clinician Unavailable Isaias Whiteside RN Attending Clinician Unavailable TOMY MARIE Attending Clinician Unavailable Reilly Means MD Attending Clinician Ofe Shields MD Attending Clinician Tomy Marie MD Attending Clinician Doctor Unassigned, [place] Attending Clinician Unavailable Bill COLES Attending Clinician Unavailable Bill Rose Attending Clinician CHARITY MCALLISTER Attending Clinician Unavailable Charity Mcallister MD Attending Clinician GADIEL KOEHLER Attending Clinician Unavailable Mike Lund Attending Clinician Unavailable NIKOLAI REEVES Attending Clinician Unavailable Eliseo Arce MD Attending Clinician Carol Ann IZQUIERDO, Sarai Lieberman Attending Clinician [phone] Ashly Pelletier MA Attending Clinician Unavailable Dagoberto Bass MD Attending Clinician [place] Evangelista Attending Clinician Lab, [facility] Pob I Attending Clinician Unavailable Monica Rodas MA Attending Clinician Unavailable Agustina Ortiz MA Attending Clinician Unavailable Andrez RAMIREZ, Rody Attending Clinician Unavailable Kirit Flood MD, V. Attending Clinician HEMATPOUR, BEVERLY Attending Clinician Unavailable Caridad GIS APPLICATION DEVELOPER, Gloria Attending Clinician Xiao RAMIREZ, Michael Corbin Attending Clinician Unavailable Team, [facility] Attending Clinician UnavailDO PORSHA Newell Attending Clinician Unavailable Gadiel Koehler MD Attending Clinician Tyrone JENKINS, Eveline Sierra Attending Clinician Stanislav RAMIREZ, Eladio Inman Attending Clinician Unavailable Geraldine SALGUERO, Leyda Attending Clinician [phone] Selvin RAMIREZ, Stefanie Attending Clinician Unavailable [...] gabino [facility] COMMUNITY PLAN [id number] 2012 STAR PLUS OON 00:00:[address] [facility] [id number] 2019 DUAL COMPLETE HMO 00:00:00 [facility] STAR [id number] 2019 PLUS 00:00:[address] [facility] [place] [id number] 2020 00:00:00 [facility] [id number] 2019 [facility] 00:00:00 [employer] MEDICARE ADV [id number] 2019 2019 00:00:00 00:00:00 Problems Condition Condition Condition Status Onset Resolution Last Treating Co mments Source Name Details Category Date Date Treatment Clinician Date Dyspnea, Dyspnea, Disease Active Unive rs unspecifie unspecifie 02-11 it y of d type d type 00:00: [place] 00 [facility] Branch Gastropare Gastropare Disease Active Overview : Methodi sis sis 4-[address] 00:00[facility] note l might be different from the original. Added automatic ally from request for surgery [id number] Dysphagia Dysphagia Disease Active Overview: Methodi 4-[address] 00:00: [facility] 00 note l might be different from the original. Added automatic ally from request for surgery [id number] CCL / EPS CCL / EPS Diagnosis [...] N/V [facility] hoxazole - Clear 00:00: [facility] trimetho DA Active SV [facility] prim - Clear 00:00: [facility] codeine DA Active SV N/V [facility] -25 Clear 00:00: [place] [facility] Metoclop Propensi Active [place] ramide ty to 12-12 Health adverse 00:00: reaction 00 s BUTORPHA DRUG Active Unknown-Cmnt Un matt NOL INGREDI 11-25 ity of 00:00: [place] [facility] Butorpha Drug Active Unknown - [...] Hives Univers INGREDI 208 ity of 00:00: [place] [facility] TRIMETHO DRUG Active Hives 2018-0 [...] Source Natural father Diabetes [facility] Natural father Other - see comments [facility] Natural father [facility] [place] [place] Disease [facility] Natural father Hy[facility] father [facility] Natural mother [facility] Social History Social Habit Start Date Stop Date Quantity Comments Source Gender identity 2020-10-06 Identifies as Method ist 15:23:56 female gender Hospital (finding) History SDOH [facility] Alcohol Frequency Hospita l History SDOH [facility] Alcohol Std Drinks Hospit al History SDOH [facility] Alcohol Binge Hospital Sexual orientation [facility] History of Social 2022-08-26 2022-08-[address] function 00:00:00 00:00:00 Hospital Exposure to 2022-04-30 2022-05-10 Yes University of SARS-CoV-2 (event) 00:00:00 10:25:00 [facility] Tobacco use and 2022-02-11 2022-02-11 Former smokeless Uni versity of exposure 00:00:00 00:00:00 tobacco user [facility] Tobacco Comment 2022-02-11 2022-02-11 Smokes approx 1-2 Un iversity of 00:00:00 00:00:00 cigarettes per [facility] day when she Branch smokes Alcohol intake 2020-12-08 2020-12-08 Current drinker [facility] 00:00:00 00:00:00 of [facility] (finding) Cigarettes smoked 2020-09-05 2020-09-[address] current (pack per 00:00:00 00:00:00 [facility] day) - Reported Cigarette 2020-09-05 2020-09-05 [facility] pack-years 00:00:00 00:00:00 Hospital Alcohol Comment 2016-09-23 2016-09-23 rare [facility] 00:00:00 00:00:00 Hospital History of tobacco 2011-09-29 User of smokeless University of use 00:00:00 tobacco [facility] Sex Assigned At [birth year] [facility] 00:00:00 00:00:00 Smoking Status Start Date Stop Date Source Ex-smoker 2022-02-11 00:00:00 2022-02-11 00:00:00 [facility] [place] [facility] Medications Ordered Filled Start Stop Current Ordering Indication Dosage Frequency Signature Comments Components Source Medication Medication Date Date Medication? Clinician (SIG) Name Name ravindra Yes [id number] Take one Univers ne-tenofovi 6-12 po daily ity of r alafen 00:00: [place] (DESCOVY) 00 Medical tablet Branch raltegravir Yes [id number] 400mg Take 1 Univers (ISENTRESS) 6-12 tablet by ity of 400 mg 00:00: mouth in [place] tablet 00 the Medical morning Branch and 1 tablet in the evening. DESCOVY Yes [id number] Take one Univers tablet 5-08 po daily ity of 00:00: [place] 00 Medical Branch raltegravir Yes [id number] 400mg Take 1 Univers (ISENTRESS) 5-08 tablet by ity of 400 mg 00:00: mouth in [place] tablet 00 the Medical morning Branch and 1 tablet in the evening. DESCOVY 2022- No [id number] Take one Univers tablet 5-08 06-12 po daily ity of 00:00: 00:00 [place] 00 :00 Medical Branch raltegravir 2022- No [id number] 400mg Take 1 Univers (ISENTRESS) 5-08 06-12 tablet by it y of 400 mg 00:00: 00:00 mouth in [place] tablet 00 :00 the Medical morning Branch and 1 tablet in the evening. emtmarianabi Yes [id number] Take one Univers ne-tenofovi 4-04 po daily ity of r alafen 00:00: [place] (DESCOVY) 00 Medical tablet Branch emtricitabi Yes [id number] Take one Univers ne-tenofovi 4-04 po daily ity of r alafen 00:00: [place] (DESCOVY) 00 Medical tablet Branch emtricitabi 2022- No [id number] Take one Univers ne-tenofovi 4-04 05-08 po daily ity of r alafen 00:00: 00:00 [place] (DESCOVY) 00 :00 Medical tablet Branch potassium 2021-05- No 10meq 10 mEq, IV Univers chloride in 07-11 Piggyback, i ty of water 10 20:00: 22:00 ONCE, 1 [place] mEq/100 mL 00 :00 dose, On Medic al RTU 10 mEq [facility] 05/10/22 at 1400, Administer over 60 Minutes, 100 mL magnesium 2021-05 No 800mg 800 mg, Uni vers oxide 07-11 Oral, ity of (MAG-OX 20:00: 19:37 ONCE, 1 [place] 400) tablet 00 :00 dose, On Medi porfirio 800 mg [facility] 05/10/22 at 1400, Routine KCL 2021-05 No 40meq 40 mEq, Univers (KLOR-CON 07-11 Oral, ity of M20) tablet 19:15: 19:37 [place]CE, 1 [place] 40 mEq 00 :00 dose, On Medical [facility] 05/10/22 at 1315, JOE hydralAZINE 2021-05 No 10mg 10 mg, Uni vers (APRESOLINE 07-11 Slow IV ity of ) injection 18:45: 18:42 [place] 10 mg 00 :00 ONCE, 1 Medical dose, On [facility] 05/10/22 at 1245, JOE NaCl 0.9% 2021-05 No 1000mL at 999 Uni vers (NS) bolus 07-11 mL/hr, ity of infusion 17:45: 20:00 1,000 mL, [place] 1,000 mL 00 :00 IV Medical Infusion, Branch ONCE, 1 dose, On [facility] 05/10/22 at 1145, JOE cefpodoxime 2021-05- No [id number] 100mg Take 1 Univers 100 mg 2-17 12-25 tablet by ity of tablet 00:00: 05:59 mouth in [place] 00 :00 the Medical morning Branch and 1 tablet in the evening. Do all this for 7 days. cefpodoxime 2021-05- No [id number] 100mg Take 1 Univers 100 mg 2-17 12-25 tablet by ity of tablet 00:00: 05:59 mouth in [place] 00 :00 the [facility] morning Branch and 1 tablet in the evening. Do all this for 7 days. cefpodoxime 2021-05- No [id number] 100mg Take 1 Univers 100 mg 2-17 12-25 tablet by ity of tablet 00:00: 05:59 mouth in [place] 00 :00 the Medical morning Branch and 1 tablet in the evening. Do all this for 7 days. butalbital- 2021-05- No 1{tbl} 1 tablet, Univers acetaminoph 2-16 12-15 Oral, ity of en-caff 00:15: 23:19 ONCE, 1 [place] (ESGIC) 00 :00 dose, On Medical 50-325-40 [place] Branch mg tablet 1 05/06/22 tablet at 1815, JOE NaCl 0.9% 2021-05 No 500mL at 999 Univ ers (NS) bolus 2-16 12-16 mL/hr, 500 it y of infusion 00:00: 00:17 mL, IV [place] 500 mL 00 :00 Infusion, Medical ONCE, 1 Branch dose, On [facility] 05/06/22 at 1800, JOE ketorolac 2021-05 No 15mg 15 mg, Unive rs (TORADOL) 2-15 12-15 Slow IV ity of injection 22:00: 22:19 Push, [place] 15 mg 00 :00 ONCE, 1 Medical dose, On Branch [facility] 05/06/22 at 1600, JOE NaCl 0.9% 2021-05- No 1000mL at 999 Uni vers (NS) bolus 2-15 12-15 mL/hr, ity of infusion 22:00: 23:41 1,000 mL, [place] 1,000 mL 00 :00 IV Medical Infusion, Branch ONCE, 1 dose, On [facility] 05/06/22 at 1600, JOE ondansetron 2021-05 No 8mg 8 mg, Slow Univers (ZOFRAN 2-15 12-15 IV Push, ity of (PF)) 21:15: 22:19 ONCE, 1 [place] injection 8 00 :00 dose, On Medi porfirio mg [facility] 05/06/22 at 1515, JOE ondansetron 2021-05 Yes [id number] 1-2 U nivers 4 mg tablet 2-15 tablets ity o f 00:00: every 8 [place] 00 hours as Medical needed for Branch nausea benzonatate 2021-05 Yes [id number] 200mg Take 1 Univers 200 mg 2-15 capsule by ity of capsule 00:00: mouth 3 (three) Medical times Branch daily as needed for Cough. albuterol 2021-05 Yes [id number] 2{puff} Inhale 2 Univers 90 2-15 Puffs ity of mcg/actuati 00:00: every 4 [place] on inhaler 00 (four) Medical hours as Branch needed for Wheezing or Shortness of Breath. butalbital- 2021-05 Yes [id number] 1{tbl} Take 1 Univers acetaminoph 2-15 tablet by ity of en-caff 00:00: mouth [place] 50-325-40 00 every 4 Medical mg tablet (four) Branch hours as needed (headache) . ondansetron 2021-05 Yes [id number] 1-2 U nivers 4 mg tablet 2-15 tablets ity o f 00:00: every 8 [place] 00 hours as Medical needed for Branch nausea benzonatate 2021-05 Yes [id number] 200mg Take 1 Univers 200 mg 2-15 capsule by ity of capsule 00:00: mouth 3 (three) Medical times Branch daily as needed for Cough. albuterol 2021-05 Yes [id number] 2{puff} Inhale 2 Univers 90 2-15 Puffs ity of mcg/actuati 00:00: every 4 [place] on inhaler 00 (four) Medical hours as Branch needed for Wheezing or Shortness of Breath. butalbital- 2021-05 Yes [id number] 1{tbl} Take 1 Univers acetaminoph 2-15 tablet by ity of en-caff 00:00: mouth [place] 50-325-40 00 every 4 Medical mg tablet (four) Branch hours as needed (headache) . ondansetron 2021-05 Yes [id number] 1-2 U nivers 4 mg tablet 2-15 tablets ity o f 00:00: every 8 [place] 00 hours as Medical needed for Branch nausea benzonatate 2021-05 Yes [id number] 200mg Take 1 Univers 200 mg 2-15 capsule by ity of capsule 00:00: mouth 3 00 (three) Medical times Branch daily as needed for Cough. albuterol 2021-05 Yes [id number] 2{puff} Inhale 2 Univers 90 2-15 Puffs ity of mcg/actuati 00:00: every 4 [place] on inhaler 00 (four) Medical hours as Branch needed for Wheezing or Shortness of Breath. butalbital- 2021-05 Yes [id number] 1{tbl} Take 1 Univers acetaminoph 2-15 tablet by ity of en-caff 00:00: mouth [place] 50-325-40 00 every 4 Medical mg tablet (four) Branch hours as needed (headache) . ondansetron 2021-05 Yes [id number] 1-2 U nivers 4 mg tablet 2-15 tablets ity o f 00:00: every 8 [place] 00 hours as Medical needed for Branch nausea benzonatate 2021-05 Yes [id number] 200mg Take 1 Univers 200 mg 2-15 capsule by ity of capsule 00:00: mouth 3 [place] 00 (three) Medical times Branch daily as needed for Cough. albuterol 2021-05 Yes [id number] 2{puff} Inhale 2 Univers 90 2-15 Puffs ity of mcg/actuati 00:00: every 4 [place] on inhaler 00 (four) Medical hours as Branch needed for Wheezing or Shortness of Breath. butalbital- 2021-05 Yes [id number] 1{tbl} Take 1 Univers acetaminoph 2-15 tablet by ity of en-caff 00:00: mouth [place] 50-325-40 00 every 4 Medical mg tablet (four) Branch hours as needed (headache) . ondansetron 2021-05 Yes [id number] 1-2 U nivers 4 mg tablet 2-15 tablets ity o f 00:00: every 8 [place] 00 hours as Medical needed for Branch nausea benzonatate 2021-05 Yes [id number] 200mg Take 1 Univers 200 mg 2-15 capsule by ity of capsule 00:00: mouth 3 [place] 00 (three) Medical times Branch daily as needed for Cough. albuterol 2021-05 Yes [id number] 2{puff} Inhale 2 Univers 90 2-15 Puffs ity of mcg/actuati 00:00: every 4 [place] on inhaler 00 (four) Medical hours as Branch needed for Wheezing or Shortness of Breath. butalbital- 2021-05 Yes [id number] 1{tbl} Take 1 Univers acetaminoph 2-15 tablet by ity of en-caff 00:00: mouth [place] 50-325-40 00 every 4 Medical mg tablet (four) Branch hours as needed (headache) . ondansetron 2021-05 Yes [id number] 1-2 U nivers 4 mg tablet 2-15 tablets ity o f 00:00: every 8 [place] 00 hours as Medical needed for Branch nausea benzonatate 2021-05 Yes [id number] 200mg Take 1 Univers 200 mg 2-15 capsule by ity of capsule 00:00: mouth 3 [place] 00 (three) Medical times Branch daily as needed for Cough. albuterol 2021-05 Yes [id number] 2{puff} Inhale 2 Univers 90 2-15 Puffs ity of mcg/actuati 00:00: every 4 [place] on inhaler 00 (four) Medical hours as Branch needed for Wheezing or Shortness of Breath. butalbital- 2021-05 Yes [id number] 1{tbl} Take 1 Univers acetaminoph 2-15 tablet by ity of en-caff 00:00: mouth [place] 50-325-40 00 every 4 Medical mg tablet (four) Branch hours as needed (headache) . ondansetron 2021-05 Yes [id number] 1-2 U nivers 4 mg tablet 2-15 tablets ity o f 00:00: every 8 [place] 00 hours as Medical needed for Branch nausea benzonatate 2021-05 Yes [id number] 200mg Take 1 Univers 200 mg 2-15 capsule by ity of capsule 00:00: mouth 3 00 (three) Medical times Branch daily as needed for Cough. albuterol 2021-05 Yes [id number] 2{puff} Inhale 2 Univers 90 2-15 Puffs ity of mcg/actuati 00:00: every 4 [place] on inhaler 00 (four) Medical hours as Branch needed for Wheezing or Shortness of Breath. butalbital- 2021-05 Yes [id number] 1{tbl} Take 1 Univers acetaminoph 2-15 tablet by ity of en-caff 00:00: mouth [place] 50-325-40 00 every 4 Medical mg tablet (four) Branch hours as needed (headache) . ondansetron 2021-05 Yes [id number] 1-2 U nivers 4 mg tablet 2-15 tablets ity o f 00:00: every 8 [place] 00 hours as Medical needed for Branch nausea benzonatate 2021-05 Yes [id number] 200mg Take 1 Univers 200 mg 2-15 capsule by ity of capsule 00:00: mouth 3 [place] 00 (three) Medical times Branch daily as needed for Cough. albuterol 2021-05 Yes [id number] 2{puff} Inhale 2 Univers 90 2-15 Puffs ity of mcg/actuati 00:00: every 4 [place] on inhaler 00 (four) Medical hours as Branch needed for Wheezing or Shortness of Breath. butalbital- 2021-05 Yes [id number] 1{tbl} Take 1 Univers acetaminoph 2-15 tablet by ity of en-caff 00:00: mouth [place] 50-325-40 00 every 4 Medical mg tablet (four) Branch hours as needed (headache) . ondansetron 2021-05 Yes [id number] 1-2 U nivers 4 mg tablet 2-15 tablets ity o f 00:00: every 8 [place] 00 hours as Medical needed for Branch nausea benzonatate 2021-05 Yes [id number] 200mg Take 1 Univers 200 mg 2-15 capsule by ity of capsule 00:00: mouth 3 00 (three) Medical times Branch daily as needed for Cough. albuterol 2021-05 Yes [id number] 2{puff} Inhale 2 Univers 90 2-15 Puffs ity of mcg/actuati 00:00: every 4 [place] as on inhaler 00 (four) Medical hours as Branch needed for Wheezing or Shortness of Breath. butalbital- 2021-05 Yes [id number] 1{tbl} Take 1 Univers acetaminoph 2-15 tablet by ity of en-caff 00:00: mouth [place] 50-325-40 00 every 4 Medical mg tablet (four) Branch hours as needed (headache) . ondansetron 2021-05 Yes [id number] 1-2 U nivers 4 mg tablet 2-15 tablets ity o f 00:00: every 8 [place] 00 hours as Medical needed for Branch nausea benzonatate 2021-05 Yes [id number] 200mg Take 1 Univers 200 mg 2-15 capsule by ity of capsule 00:00: mouth 3 [place] 00 (three) Medical times Branch daily as needed for Cough. albuterol 2021-05 Yes [id number] 2{puff} Inhale 2 Univers 90 2-15 Puffs ity of mcg/actuati 00:00: every 4 [place] on inhaler 00 (four) Medical hours as Branch needed for Wheezing or Shortness of Breath. butalbital- 2021-05 Yes [id number] 1{tbl} Take 1 Univers acetaminoph 2-15 tablet by ity of en-caff 00:00: mouth [place] 50-325-40 00 every 4 Medical mg tablet (four) Branch hours as needed (headache) . [facility] 2021-05- No [id number] 2{tbl} Take 2 Univers r-ritonavir 2-15 12-21 tablets by i ty of (PAXLOVID, 00:00: 05:59 mouth in [place] EUA,) 300 00 :00 the Medical mg (150 mg morning Branch x 2)-100 mg and 2 tablet tablets in the evening. Do all this for 5 days. [facility] 2021-05- No [id number] 2{tbl} Take 2 Univers r-ritonavir 2-15 12-21 tablets by i ty of (PAXLOVID, 00:00: 05:59 mouth [place] EUA,) 300 00 :00 the Medical mg (150 mg morning Branch x 2)-100 mg and 2 tablet tablets in the evening. Do all this for 5 days. [facility] 2021-05- No [id number] 2{tbl} Take 2 Univers r-ritonavir 2-15 12-21 tablets by i ty of (PAXLOVID, 00:00: 05:59 [place] EUA,) 300 00 :00 the Medical mg (150 mg morning Branch x 2)-100 mg and 2 tablet tablets in the evening. Do all this for 5 days. [facility] 2021-05- No [id number] 2{tbl} Take 2 Univers r-ritonavir 2-15 12-21 [...] 04/22/22 at 1645, Routine amoxicillin 2021-05 Yes [id number] 1{tbl} Take 1 Univers -clavulanat 2-01 [id number] tablet by i ty of e 875-125 00:00: mouth [place] mg per 00 every 12 Medical tablet (twelve) Branch hours. ondansetron 2021-05 Yes [id number] 4mg Take 1 Univers 4 mg 2- [id number] tablet by ity of disintegrat 00:00: mouth [place] ing tablet 00 every 8 Medica l (eight) Branch hours as needed for Nausea and Vomiting (N/V). amoxicillin 2021-05 Yes [id number] 1{tbl} Take 1 Univers -clavulanat 2- [id number] tablet by i ty of e 875-125 00:00: mouth [place] mg per 00 every 12 Medical tablet (twelve) Branch hours. ondansetron 2021-05 Yes [id number] 4mg Take 1 Univers 4 mg 2- [id number] tablet by ity of disintegrat 00:00: mouth [place] ing tablet 00 every 8 Medica l (eight) Branch hours as needed for Nausea and Vomiting (N/V). amoxicillin 2021-05 Yes [id number] 1{tbl} Take 1 Univers -clavulanat 2-01 [id number] tablet by i ty of e 875-125 00:00: mouth [place] mg per 00 every 12 Medical tablet (twelve) Branch hours. ondansetron 2021-05 Yes [id number] 4mg Take 1 Univers 4 mg 2-01 [id number] tablet by ity of disintegrat 00:00: mouth [place] ing tablet 00 every 8 Medica l (eight) Branch hours as needed for Nausea and Vomiting (N/V). amoxicillin 2021-05 Yes [id number] 1{tbl} Take 1 Univers -clavulanat 2-01 [id number] tablet by i ty of e 875-125 00:00: mouth [place] mg per 00 every 12 Medical tablet (twelve) Branch hours. ondansetron 2021-05 Yes [id number] 4mg Take 1 Univers 4 mg 2-01 [id number] tablet by ity of disintegrat 00:00: mouth [place] ing tablet 00 every 8 Medica l (eight) Branch hours as needed for Nausea and Vomiting (N/V). amoxicillin 2021-05 Yes [id number] 1{tbl} Take 1 Univers -clavulanat 2-01 [id number] tablet by i ty of e 875-125 00:00: mouth [place] mg per 00 every 12 Medical tablet (twelve) Branch hours. ondansetron 2021-05 Yes [id number] 4mg Take 1 Univers 4 mg 2-01 [id number] tablet by ity of disintegrat 00:00: mouth [place] ing tablet 00 every 8 Medica l (eight) Branch hours as needed for Nausea and Vomiting (N/V). amoxicillin 2021-05 Yes [id number] 1{tbl} Take 1 Univers -clavulanat 2-01 [id number] tablet by i ty of e 875-125 00:00: mouth [place] mg per 00 every 12 Medical tablet (twelve) Branch hours. ondansetron 2021-05 Yes [id number] 4mg Take 1 Univers 4 mg 2- [id number] tablet by ity of disintegrat 00:00: mouth [place] ing tablet 00 every 8 Medica l (eight) Branch hours as needed for Nausea and Vomiting (N/V). amoxicillin 2021-05 Yes [id number] 1{tbl} Take 1 Univers -clavulanat 2-01 [id number] tablet by i ty of e 875-125 00:00: mouth [place] mg per 00 every 12 Medical tablet (twelve) Branch hours. ondansetron 2021-05 Yes [id number] 4mg Take 1 Univers 4 mg 2-01 [id number] tablet by ity of disintegrat 00:00: mouth [place] ing tablet 00 every 8 Medica l (eight) Branch hours as needed for Nausea and Vomiting (N/V). amoxicillin 2021-05 Yes [id number] 1{tbl} Take 1 Univers -clavulanat 2-01 [id number] tablet by i ty of e 875-125 00:00: mouth [place] mg per 00 every 12 Medical tablet (twelve) Branch hours. ondansetron 2021-05 Yes [id number] 4mg Take 1 Univers 4 mg 2-01 [id number] tablet by ity of disintegrat 00:00: mouth [place] ing tablet 00 every 8 Medica l (eight) Branch hours as needed for Nausea and Vomiting (N/V). amoxicillin 2021-05 Yes [id number] 1{tbl} Take 1 Univers -clavulanat 2-01 [id number] tablet by i ty of e 875-125 00:00: mouth [place] mg per 00 every 12 Medical tablet (twelve) Branch hours. ondansetron 2021-05 Yes [id number] 4mg Take 1 Univers 4 mg 2- [id number] tablet by ity of disintegrat 00:00: mouth [place] ing tablet 00 every 8 Medica l (eight) Branch hours as needed for Nausea and Vomiting (N/V). amoxicillin 2021-05 Yes [id number] 1{tbl} Take 1 Univers -clavulanat 2-01 [id number] tablet by i ty of e 875-125 00:00: mouth [place] mg per 00 every 12 Medical tablet (twelve) Branch hours. ondansetron 2021-05 Yes [id number] 4mg Take 1 Univers 4 mg 2- [id number] tablet by ity of disintegrat 00:00: mouth [place] ing tablet 00 every 8 Medica l (eight) Branch hours as needed for Nausea and Vomiting (N/V). amoxicillin 2021-05 Yes [id number] 1{tbl} Take 1 Univers -clavulanat 2-01 [id number] tablet by i ty of e 875-125 00:00: mouth [place] mg per 00 every 12 Medical tablet (twelve) Branch hours. ondansetron 2021-05 Yes [id number] 4mg Take 1 Univers 4 mg 2- [id number] tablet by ity of disintegrat 00:00: mouth [place] ing tablet 00 every 8 Medica l (eight) Branch hours as needed for Nausea and Vomiting (N/V). amoxicillin 2021-05 Yes [id number] 1{tbl} Take 1 Univers -clavulanat 2-01 [id number] tablet by i ty of e 875-125 00:00: mouth [place] mg per 00 every 12 Medical tablet (twelve) Branch hours. ondansetron 2021-05 Yes [id number] 4mg Take 1 Univers 4 mg 2-01 [id number] tablet by ity of disintegrat 00:00: mouth [place] ing tablet 00 every 8 Medica l (eight) Branch hours as needed for Nausea and Vomiting (N/V). zoster 2021-05- No [id number] .5mL 0.5 mL by Univers vaccine, 0-05 03- 9104 Intramuscu ity of recombinant 00:00: 04:59 lar route [place] (SHINGRIX, 00 :00 once now Medic al PF,) for 1 Branch injection dose. And repeat in 2-6 months zoster 2021-05- No [id number] .5mL 0.5 mL by Univers vaccine, 0-05 03- 9104 Intramuscu ity of recombinant 00:00: 04:59 lar route [place] (SHINGRIX, 00 :00 once now Medic al PF,) for 1 Branch injection dose. And repeat in 2-6 months zoster 2021-05- No [id number] .5mL 0.5 mL by Univers vaccine, 0-05 [...] o f 1 mg tablet 19:28: at [place] [address] bedtime. Medical Branch traZODone 0 Yes 50mg Take 50 mg Un matt 100 mg 9-27 by mouth ity of tablet 19:28: at [place] [address] bedtime. Medical Branch hydralAZINE 2021-0 Yes 25mg [...] o f 1 mg tablet 19:28: at [place] [address] bedtime. Medical Branch traZODone 2021-0 Yes 50mg Take 50 mg Un matt 100 mg 9-27 by mouth ity of tablet 19:28: at [place] [address] bedtime. Medical Branch hydralAZINE 2021-0 Yes 25mg [...] o f 1 mg tablet 19:28: at [place] [address] bedtime. Medical Branch traZODone 2-0 Yes 50mg Take 50 mg Un matt 100 mg 9-27 by mouth ity of tablet 19:28: at [place] [address] bedtime. Medical Branch hydralAZINE 2-0 Yes 25mg [...] o f 1 mg tablet 19:28: at [place] [address] bedtime. Medical Branch traZODone 2021-0 Yes 50mg Take 50 mg Un matt 100 mg 9-27 by mouth ity of tablet 19:28: at [place] [address] bedtime. Medical Branch hydralAZINE 2021-0 Yes 25mg [...] o f 1 mg tablet 19:28: at [place] [address] bedtime. Medical Branch traZODone 2021-0 Yes 50mg Take 50 mg Un matt 100 mg 9-27 by mouth ity of tablet 19:28: at [place] [address] bedtime. Medical Branch hydralAZINE 2021-0 Yes 25mg [...] o f 1 mg tablet 19:28: at [place] [address] bedtime. Medical Branch traZODone 2021-0 Yes 50mg Take 50 mg Un matt 100 mg 9-27 by mouth ity of tablet 19:28: at [place] [address] bedtime. Medical Branch hydralAZINE 2021-0 Yes 25mg [...] o f 1 mg tablet 19:28: at [place] [address] bedtime. Medical Branch traZODone 2021-0 Yes 50mg Take 50 mg Un matt 100 mg 9-27 by mouth ity of tablet 19:28: at [place] [address] bedtime. Medical Branch hydralAZINE 2021-0 Yes 25mg [...] o f 1 mg tablet 19:28: at [place] [address] bedtime. Medical Branch traZODone 2021-0 Yes 50mg Take 50 mg Un matt 100 mg 9- by mouth ity of tablet 19:28: at [place] [address] bedtime. Medical Branch hydralAZINE 2021-0 Yes 25mg [...] o f 1 mg tablet 19:28: at [place] [address] bedtime. Medical Branch traZODone 2-0 Yes 50mg Take 50 mg Un matt 100 mg 9-27 by mouth ity of tablet 19:28: at [place] [address] bedtime. Medical Branch hydralAZINE 2021-0 Yes 25mg [...] 100 mg 04 (two) Medical tablet times [place] daily. amLODIPine 2021-0 Yes 10mg Take 10 mg U nivers (NORVASC) 9- by mouth ity of 10 mg 19:28: daily. [place] tablet 04 Medical Branch clonazePAM 2021-0 Yes 1mg Take 1 mg Un matt (KLONOPIN) 9-27 by mouth ity o f 1 mg tablet 19:28: at [place] [address] bedtime. Medical Branch traZODone 2-0 Yes 50mg Take 50 mg Un matt 100 mg 9-27 by mouth ity of tablet 19:28: at [place] [address] bedtime. Medical Branch hydralAZINE 2-0 Yes 25mg [...] o f 1 mg tablet 19:28: at [place] [address] bedtime. Medical Branch traZODone 2021-0 Yes 50mg Take 50 mg Un matt 100 mg 9-27 by mouth ity of tablet 19:28: at [place] [address] bedtime. Medical Branch hydralAZINE 2021-0 Yes 25mg [...] o f 1 mg tablet 19:28: at [place] [address] bedtime. Medical Branch traZODone 2021-0 Yes 50mg Take 50 mg Un matt 100 mg 9-27 by mouth ity of tablet 19:28: at [place] [address] bedtime. Medical Branch hydralAZINE 2021-0 Yes 25mg [...] o f 1 mg tablet 19:28: at [place] [address] bedtime. Medical Branch traZODone 2021-0 Yes 50mg Take 50 mg Un matt 100 mg 9- by mouth ity of tablet 19:28: at [place] [address] bedtime. Medical Branch hydralAZINE 2021-0 Yes 25mg [...] o f 1 mg tablet 19:28: at [place] [address] bedtime. Medical Branch traZODone 2022-0 Yes 50mg Take 50 mg Un matt 100 mg 9-27 by mouth ity of tablet 19:28: at [place] [address] bedtime. Medical Branch hydralAZINE 2-0 Yes 25mg [...] o f 1 mg tablet 19:28: at [place] [address] bedtime. Medical Branch traZODone 2-0 Yes 50mg Take 50 mg Un matt 100 mg 9-27 by mouth ity of tablet 19:28: at [place] [address] bedtime. Medical Branch hydralAZINE 2021-0 Yes 25mg [...] o f 1 mg tablet 19:28: at [place] [address] bedtime. Medical Branch traZODone 2022-0 Yes 50mg Take 50 mg Un matt 100 mg 9-27 by mouth ity of tablet 19:28: at [place] [address] bedtime. Medical Branch hydralAZINE 2-0 Yes 25mg [...] o f 1 mg tablet 19:28: at [place] [address] bedtime. Medical Branch traZODone 2-0 Yes 50mg Take 50 mg Un matt 100 mg 9-27 by mouth ity of tablet 19:28: at [place] [address] bedtime. Medical Branch hydralAZINE 2-0 Yes 25mg [...] by mouth ity of tablet 19:28: at [place] [address] bedtime. Medical Branch hydralAZINE 2021-0 Yes 25mg [...] o f 1 mg tablet 19:28: at [place] [address] bedtime. Medical Branch traZODone 2021-0 Yes 50mg Take 50 mg Un matt 100 mg 9-27 by mouth ity of tablet 19:28: at [place] [address] bedtime. Medical Branch hydralAZINE 2021-0 Yes 25mg [...] o f 1 mg tablet 19:28: at [place] [address] bedtime. Medical Branch traZODone Yes 50mg Take 50 mg Un matt 100 mg 02-16 by mouth ity of tablet 19:28: at [place] [address] bedtime. [facility] cefpodoxime 2021- No [id number] 200mg Take 1 [facility] 200 mg 02-16 tablet by ity of tablet 00:00: 04:59 mouth in [place] 00 :00 the Medical morning Branch and 1 tablet in the evening. Do all this for 3 days. cefpodoxime 2021- No [id number] 200mg Take 1 [facility] 200 mg 02-16 tablet by ity of tablet 00:00: 04:59 mouth in [place] 00 :00 the [facility] and 1 tablet in the evening. Do all this for 3 days. haloperidol 2021- No 2mg 2 mg, Slow Univers lactate 02-15 IV Push, ity of (HALDOL) 09:00: 09:12 ONCE, 1 [place] injection 2 00 :00 dose, On Medi porfirio mg Mon [place] 02/15/22 at 0400, Routine hydroCHLORO Yes 25mg 25 mg, Univ ers thiazide 9-25 Oral, ity of (ESIDRIX) 14:00: DAILY, [place] capsule 25 00 First dose Med ical mg on [place] [facility] 02/14/22 at 0900, Until Discontinu ed, Routine butalbital- Yes 1{tbl} 1 tablet, [facility] acetaminoph 24 Oral, ity of en-caff 18:46: Q6HPRN, [place] (ESGIC) 06 Starting Medical 50-325-40 on [facility] Branch mg tablet 1 02/13/22 at [...] of 2,000 mg in 17:00: 18:24 Piggyback, [place] NaCl 0.9% 00 :00 Q24H ABX, Medic [...] [place] 00 on [facility] [...] 0 Yes 1{tbl} 1 tablet[facility] [place] [facility] Oral, ity of r alafen 18:00: DAILY, [place] (DESCOVY) 00 First dose Medi porfirio tablet 1 on [facility] tablet 02/11/22 at 1300, Until Discontinu ed, Routine ipratropium 0 Yes .5mg 0.5 mg, Uni vers (ATROVENT) 02-11 Inhalation ity of 0.02 % 17:57: , QIDPRN, [place] nebulizer 10 Starting Medica l solution on [facility] Branch 0.5 mg 02/11/22 at 1257, [...] Medi porfirio tablet 1 on [facility] Branch tablet 02/11/22 at 0911, Until Tue02/12/22 at 1237, Routine, Pain (scale 7-10) melatonin Yes 3mg 3 mg, Univers (MELATIN) 02-11 Oral, ity of tablet 3 mg 14:08: QHSPRN, [place] as 17 Starting Medical on [facility] Branch 02/11/22 at 0908, Until Discontinu ed, Routine, Insomnia acetaminoph 2021- No 1{tbl} 1 tablet, Univers en-codeine 02-11 Oral, ity of (TYLENOL 14:06: 17:37 [facility] [place] #3) 300-30 19 :24 Starting Medic al mg tablet 1 on [facility] tablet 02/11/22 at 0906, Until Tue02/12/22 at 1237, Routine, Pain (scale 4-6) sennosides- Yes 1{tbl} 1 tablet, Univers docusate 02-11 Oral, ity of sodium 14:06: QDAILYPRN, [place] (SENOKOT-S) 09 Starting Medi porfirio 8.6-50 mg on [facility] per tablet 02/11/22 at 1 tablet 0906, Until Discontinu ed, Routine, Constipati on ondansetron 0 Yes 4mg 4 mg, Slow Univers (ZOFRAN 02-11 IV Push, ity of (PF)) 14:05: Q6HPRNDickerson, [place] injection 4 59 Starting Medi porfirio mg on [facility] Branch 02/11/22 at 0905, Until Discontinu ed, Routine, Nausea and Vomiting (N/V) acetaminoph Yes 650mg 650 mg, Un matt en 02-11 Oral, ity of (TYLENOL) 14:04: Q6HPRN, [place] tablet 650 37 Starting Medic al mg [...] ity of ) 25 mg 09:10: daily. [facility] 54 Medical Branch amLODIPine 0 Yes 10mg Take 10 mg U nivers (NORVASC) 02-11 by mouth ity of 10 mg 09:10: daily. [facility] 54 [facility] piperacilli 2021- No [...] of therapy: 72 hours iopamidol 2021- No [id number] 60mL 60 mL, Univers (ISOVUE 02-11 Intravenou [...] 02/11/22 at 0015, JOE emtricitabi 0 Yes [id number] Take one Univers ne-tenofovi 9-12 po daily ity of r alafen 00:00: [place] (DESCOVY) Medical tablet Branch emtricitabi Yes [id number] Take one Univers ne-tenofovi 9-12 po daily ity of r alafen 00:00: [place] (DESCOVY) 00 Medical tablet Branch emtricitabi Yes [id number] Take one Univers ne-tenofovi 9-12 po daily ity of r alafen 00:00: [place] (DESCOVY) 00 Medical tablet Branch emtricitabi Yes [id number] Take one Univers ne-tenofovi 9-12 po daily ity of r alafen 00:00: [place] (DESCOVY) 00 Medical tablet Branch emtricitabi Yes [id number] Take one Univers ne-tenofovi 9-12 po daily ity of r alafen 00:00: [place] (DESCOVY) 00 Medical tablet Branch emtricitabi Yes [id number] Take one Univers ne-tenofovi 9-12 po daily ity of r alafen 00:00: [place] (DESCOVY) 00 Medical tablet [facility] [id number] Take one Univers ne-tenofovi 9-12 po daily ity of r alafen 00:00: [place] (DESCOVY) 00 Medical tablet Branch emtricita Yes [id number] Take one Univers ne-tenofovi 9-12 po daily ity of r alafen 00:00: [place] (DESCOVY) 00 Medical tablet Branch emtricita Yes [id number] Take one Univers ne-tenofovi 9-12 po daily ity of r alafen 00:00: [place] (DESCOVY) 00 Medical tablet Branch emtricita Yes [id number] Take one Univers ne-tenofovi 9-12 po daily ity of r alafen 00:00: [place] (DESCOVY) 00 Medical tablet Branch [facility] Yes [id number] Take one Univers ne-tenofovi 9-12 po daily ity of r alafen 00:00: [place] (DESCOVY) 00 Medical tablet Branch [facility] Yes [id number] Take one Univers ne-tenofovi 9-12 po daily ity of r alafen 00:00: [place] (DESCOVY) 00 Medical tablet Branch [facility] Yes [id number] Take one Univers ne-tenofovi 9-12 po daily ity of r alafen 00:00: [place] (DESCOVY) 00 Medical tablet Branch emtricita Yes [id number] Take one Univers ne-tenofovi 9-12 po daily ity of r alafen 00:00: [place] (DESCOVY) 00 Medical tablet Branch emtricita Yes [id number] Take one Univers ne-tenofovi 9-12 po daily ity of r alafen 00:00: [place] (DESCOVY) 00 Medical tablet Branch emtricita Yes [id number] Take one Univers ne-tenofovi 9-12 po daily ity of r alafen 00:00: [place] (DESCOVY) 00 Medical tablet Branch emtricita Yes [id number] Take one Univers ne-tenofovi 9-12 po daily ity of r alafen 00:00: [place] (DESCOVY) 00 Medical tablet Branch emtricitabi 2022- No [id number] Take one Univers ne-tenofovi 02-01-04 po daily ity of r alafen 00:00: 00:00 [place] (DESCOVY) 00 :00 Medical tablet Branch emtricitabi 2021-0 3- No [id number] Take one Univers ne-arianofovi 02-01- po daily ity of r alafen 00:00: 00:00 [place] (DESCOVY) 00 :00 Medical tablet Branch naproxen 2021-0 Yes [id number] 500mg Take 1 U nivers (NAPROSYN) 7-24 tablet by ity of 500 mg 00:00: mouth in [place] tablet 00 the Medical morning Branch and 1 tablet in the evening. Take with meals. methocarbam 2021-0 Yes [id number] 500mg Take 1 Univers oL 500 mg 7-24 tablet by ity o f tablet 00:00: mouth 4 [place] ([facility]) Medical times [place] daily. naproxen 2021-0 Yes [id number] 500mg Take 1 U nivers (NAPROSYN) 7-24 tablet by ity of 500 mg 00:00: mouth in [place] tablet 00 the Medical morning Branch and 1 tablet in the evening. Take with meals. methocarbam 2021-0 Yes [id number] 500mg Take 1 Univers oL 500 mg 7-24 tablet by ity o f tablet 00:00: mouth 4 [place] ([facility]) Medical times Branch daily. naproxen 2-0 Yes [id number] 500mg Take 1 U nivers (NAPROSYN) 7-24 tablet by ity of 500 mg 00:00: mouth in [place] tablet 00 the Medical morning Branch and 1 tablet in the evening. Take with meals. methocarbam 2022-0 Yes [id number] 500mg Take 1 Univers oL 500 mg 7-24 tablet by ity o f tablet 00:00: mouth 4 [place] ([facility]) Medical times Branch daily. naproxen 2-0 2022- No [id number] 500mg Take 1 Univers (NAPROSYN) 7-24 10-14 tablet by ity of 500 mg 00:00: 00:00 mouth in [place] tablet 00 :00 the Medical morning Branch and 1 tablet in the evening. Take with meals. methocarbam 2021- No [id number] 500mg Take 1 Univers oL 500 mg 12-13 tablet by ity of tablet 00:00: 00:00 mouth 4 [place] 00 :00 (four) Medical times Branch daily. naproxen 2021- No [id number] 500mg Take 1 Univers (NAPROSYN) 12-13 tablet by ity of 500 mg 00:00: 00:00 mouth in [place] tablet 00 :00 the Medical morning Branch and 1 tablet in the evening. Take with meals. methocarbam 2021- No [id number] 500mg Take 1 Univers oL 500 mg 12-13 tablet by ity of tablet 00:00: 00:00 mouth 4 [place] 00 :00 (four) Medical times Branch daily. esomeprazol 2021- No 40mg Take 40 mg Univers e (NEXIUM) 11-20 by mouth 2 it y of 40 mg 09:12: 00:00 (two) [place] capsule 03 :00 times Medical daily. Branch amiodarone No 100mg Take 100 U nivers 100 mg 11-20 mg by ity of tablet 09:11: 00:00 mouth [place] 57 :00 daily. Medical Branch apixaban No 5mg Take 5 mg Uni vers (ELIQUIS) 5 11-20 by mouth 2 i ty of mg tablet 09:11: 00:00 (two) [place] 35 :00 times Medical daily. Branch traZODONE 2021- No Take by [facility] ers (DESYREL) 11-20 mouth at ity o f 10 mg/mL 09:10: 00:00 [place]time[place] oral 28 :00 Medical suspension Branch hydralAZINE Yes 25mg Take 25 mg Univers (APRESOLINE 11-20 by mouth ity of ) 25 mg 08:47: daily. [place] tablet 47 Medical Branch cephALEXin 2021- No [id number] 500mg Take 1 Univers (KEFLEX) 10-24 capsule [...] 7-10). Indication s: acute pain buPROPion Yes [id number] 150mg Take 1 U nivers XL 4-12 tablet by ity of (WELLBUTRIN 00:00: mouth [place] XL) 150 mg 00 daily. Medical 24 hr Branch tablet busPIRone Yes [id number] 30mg Take 1 Un matt 30 mg 4-12 tablet by ity of tablet 00:00: mouth 2 [place] 00 (two) Medical times Branch daily. SERTraline Yes [id number] 200mg Take 2 Univers 100 mg 4-12 tablets by ity of tablet 00:00: mouth [place] 00 daily. Medical Branch buPROPion Yes [id number] 150mg Take 1 U nivers XL 4-12 tablet by ity of (WELLBUTRIN 00:00: mouth [place] XL) 150 mg 00 daily. Medical 24 hr Branch tablet busPIRone 2021-0 Yes [id number] 30mg Take 1 Un amtt 30 mg 4-12 tablet by ity of tablet 00:00: mouth 2 [place] 00 (two) Medical times Branch daily. SERTraline 2021-0 Yes [id number] 200mg Take 2 Univers 100 mg 4-12 tablets by ity of tablet 00:00: mouth [place] 00 daily. Medical Branch buPROPion 2021-0 Yes [id number] 150mg Take 1 U nivers XL 4-12 tablet by ity of (WELLBUTRIN 00:00: mouth [place] XL) 150 mg 00 daily. Medical 24 hr Branch tablet busPIRone 2021-0 Yes [id number] 30mg Take 1 Un matt 30 mg 4-12 tablet by ity of tablet 00:00: mouth 2 [place] 00 (two) Medical times Branch daily. SERTraline 2021-0 Yes [id number] 200mg Take 2 Univers 100 mg 4-12 tablets by ity of tablet 00:00: mouth [place] 00 daily. Medical Branch buPROPion 2021-0 Yes [id number] 150mg Take 1 U nivers XL 4-12 tablet by ity of (WELLBUTRIN 00:00: mouth [place] XL) 150 mg 00 daily. Medical 24 hr Branch tablet busPIRone 2021-0 Yes [id number] 30mg Take 1 Un matt 30 mg 4-12 tablet by ity of tablet 00:00: mouth 2 [place] 00 (two) Medical times Branch daily. SERTraline 2021-0 Yes [id number] 200mg Take 2 Univers 100 mg 4-12 tablets by ity of tablet 00:00: mouth [place] 00 daily. Medical Branch buPROPion 2021-0 Yes [id number] 150mg Take 1 U nivers XL 4-12 tablet by ity of (WELLBUTRIN 00:00: mouth [place] XL) 150 mg 00 daily. Medical 24 hr Branch tablet busPIRone 2021-0 Yes [id number] 30mg Take 1 Un matt 30 mg 4-12 tablet by ity of tablet 00:00: mouth 2 [place] 00 (two) Medical times Branch daily. SERTraline 2021-0 Yes [id number] 200mg Take 2 Univers 100 mg 4-12 tablets by ity of tablet 00:00: mouth [place] 00 daily. Medical Branch buPROPion 2021-0 Yes [id number] 150mg Take 1 U nivers XL 4-12 tablet by ity of (WELLBUTRIN 00:00: mouth [place] XL) 150 mg 00 daily. Medical 24 hr Branch tablet busPIRone 2021-0 Yes [id number] 30mg Take 1 Un matt 30 mg 4-12 tablet by ity of tablet 00:00: mouth 2 [place] 00 (two) Medical times Branch daily. SERTraline 2021-0 Yes [id number] 200mg Take 2 Univers 100 mg 4-12 tablets by ity of tablet 00:00: mouth [place] 00 daily. Medical Branch buPROPion 2021-0 Yes [id number] 150mg Take 1 U nivers XL 4-12 tablet by ity of (WELLBUTRIN 00:00: mouth [place] XL) 150 mg 00 daily. Medical 24 hr Branch tablet busPIRone 2021-0 Yes [id number] 30mg Take 1 Un matt 30 mg 4-12 tablet by ity of tablet 00:00: mouth 2 [place] 00 (two) Medical times Branch daily. SERTraline 2021-0 Yes [id number] 200mg Take 2 Univers 100 mg 4-12 tablets by ity of tablet 00:00: mouth [place] 00 daily. Medical Branch buPROPion 2021-0 Yes [id number] 150mg Take 1 U nivers XL 4-12 tablet by ity of (WELLBUTRIN 00:00: mouth [place] XL) 150 mg 00 daily. Medical 24 hr Branch tablet busPIRone 2021-0 Yes [id number] 30mg Take 1 Un matt 30 mg 4-12 tablet by ity of tablet 00:00: mouth 2 [place] 00 (two) Medical times Branch daily. SERTraline 2021-0 Yes [id number] 200mg Take 2 Univers 100 mg 4-12 tablets by ity of tablet 00:00: mouth [place] 00 daily. Medical Branch buPROPion 2021-0 Yes [id number] 150mg Take 1 U nivers XL 4-12 tablet by ity of (WELLBUTRIN 00:00: mouth [place] XL) 150 mg 00 daily. Medical 24 hr Branch tablet busPIRone 2021-0 Yes [id number] 30mg Take 1 Un matt 30 mg 4-12 tablet by ity of tablet 00:00: mouth 2 [place] 00 (two) Medical times Branch daily. SERTraline 2021-0 Yes [id number] 200mg Take 2 Univers 100 mg 4-12 tablets by ity of tablet 00:00: mouth [place] 00 daily. Medical Branch buPROPion 2021-0 Yes [id number] 150mg Take 1 U nivers XL 4-12 tablet by ity of (WELLBUTRIN 00:00: mouth [place] XL) 150 mg 00 daily. Medical 24 hr Branch tablet busPIRone 2021-0 Yes [id number] 30mg Take 1 Un matt 30 mg 4-12 tablet by ity of tablet 00:00: mouth 2 [place] 00 (two) Medical times Branch daily. SERTraline 2021-0 Yes [id number] 200mg Take 2 Univers 100 mg 4-12 tablets by ity of tablet 00:00: mouth [place] 00 daily. Medical Branch buPROPion 2021-0 Yes [id number] 150mg Take 1 U nivers XL 4-12 tablet by ity of (WELLBUTRIN 00:00: mouth [place] XL) 150 mg 00 daily. Medical 24 hr Branch tablet busPIRone 2021-0 Yes [id number] 30mg Take 1 Un matt 30 mg 4-12 tablet by ity of tablet 00:00: mouth 2 [place] 00 (two) Medical times Branch daily. SERTraline 2021-0 Yes [id number] 200mg Take 2 Univers 100 mg 4-12 tablets by ity of tablet 00:00: mouth [place] 00 daily. Medical Branch buPROPion 2021-0 Yes [id number] 150mg Take 1 U nivers XL 4-12 tablet by ity of (WELLBUTRIN 00:00: mouth [place] XL) 150 mg 00 daily. Medical 24 hr Branch tablet busPIRone 2021-0 Yes [id number] 30mg Take 1 Un matt 30 mg 4-12 tablet by ity of tablet 00:00: mouth 2 [place] 00 (two) Medical times Branch daily. SERTraline 2021-0 Yes [id number] 200mg Take 2 Univers 100 mg 4-12 tablets by ity of tablet 00:00: mouth [place] 00 daily. Medical Branch buPROPion 2021-0 Yes [id number] 150mg Take 1 U nivers XL 4-12 tablet by ity of (WELLBUTRIN 00:00: mouth [place] XL) 150 mg 00 daily. Medical 24 hr Branch tablet busPIRone 2021-0 Yes [id number] 30mg Take 1 Un matt 30 mg 4-12 tablet by ity of tablet 00:00: mouth 2 [place] 00 (two) Medical times Branch daily. SERTraline 2021-0 Yes [id number] 200mg Take 2 Univers 100 mg 4-12 tablets by ity of tablet 00:00: mouth [place] 00 daily. Medical Branch buPROPion 2021-0 Yes [id number] 150mg Take 1 U nivers XL 4-12 tablet by ity of (WELLBUTRIN 00:00: mouth [place] XL) 150 mg 00 daily. Medical 24 hr Branch tablet busPIRone 2021-0 Yes [id number] 30mg Take 1 Un matt 30 mg 4-12 tablet by ity of tablet 00:00: mouth 2 [place] 00 (two) Medical times Branch daily. SERTraline 2021-0 Yes [id number] 200mg Take 2 Univers 100 mg 4-12 tablets by ity of tablet 00:00: mouth [place] 00 daily. Medical Branch buPROPion 2021-0 Yes [id number] 150mg Take 1 U nivers XL 4-12 tablet by ity of (WELLBUTRIN 00:00: mouth [place] XL) 150 mg 00 daily. Medical 24 hr Branch tablet busPIRone 2021-0 Yes [id number] 30mg Take 1 Un matt 30 mg 4-12 tablet by ity of tablet 00:00: mouth 2 00 (two) Medical times Branch daily. SERTraline 2021-0 Yes [id number] 200mg Take 2 Univers 100 mg 4-12 tablets by ity of tablet 00:00: mouth [place] 00 daily. Medical Branch buPROPion 2021-0 Yes [id number] 150mg Take 1 U nivers XL 4-12 tablet by ity of (WELLBUTRIN 00:00: mouth [place] XL) 150 mg 00 daily. Medical 24 hr Branch tablet busPIRone 2021-0 Yes [id number] 30mg Take 1 Un matt 30 mg 4-12 tablet by ity of tablet 00:00: mouth 2 (two) Medical times Branch daily. SERTraline 2021-0 Yes [id number] 200mg Take 2 Univers 100 mg 4-12 tablets by ity of tablet 00:00: mouth [place] 00 daily. Medical Branch buPROPion 2021-0 Yes [id number] 150mg Take 1 U nivers XL 4-12 tablet by ity of (WELLBUTRIN 00:00: mouth [place] XL) 150 mg 00 daily. Medical 24 hr Branch tablet busPIRone 2021-0 Yes [id number] 30mg Take 1 Un matt 30 mg 4-12 tablet by ity of tablet 00:00: mouth 2 (two) Medical times Branch daily. SERTraline 2021-0 Yes [id number] 200mg Take 2 Univers 100 mg 4-12 tablets by ity of tablet 00:00: mouth [place] 00 daily. Medical Branch buPROPion 2021-0 Yes [id number] 150mg Take 1 U nivers XL 4-12 tablet by ity of (WELLBUTRIN 00:00: mouth [place] XL) 150 mg 00 daily. Medical 24 hr Branch tablet busPIRone 2021-0 Yes [id number] 30mg Take 1 Un matt 30 mg 4-12 tablet by ity of tablet 00:00: mouth 2 (two) Medical times Branch daily. SERTraline 2021-0 Yes [id number] 200mg Take 2 Univers 100 mg 4-12 tablets by ity of tablet 00:00: mouth [place] 00 daily. Medical Branch buPROPion 2021-0 Yes [id number] 150mg Take 1 U nivers XL 4-12 tablet by ity of (WELLBUTRIN 00:00: mouth [place] XL) 150 mg 00 daily. Medical 24 hr Branch tablet busPIRone 2021-0 Yes [id number] 30mg Take 1 Un matt 30 mg 4-12 tablet by ity of tablet 00:00: mouth 2 [place] 00 (two) Medical times Branch daily. SERTraline 2021-0 Yes [id number] 200mg Take 2 Univers 100 mg 4-12 tablets by ity of tablet 00:00: mouth [place] 00 daily. Medical Branch buPROPion 2021-0 Yes [id number] 150mg Take 1 U nivers XL 4-12 tablet by ity of (WELLBUTRIN 00:00: mouth [place] XL) 150 mg 00 daily. Medical 24 hr Branch tablet busPIRone 2021-0 Yes [id number] 30mg Take 1 Un matt 30 mg 4-12 tablet by ity of tablet 00:00: mouth 2 [place] 00 (two) Medical times Branch daily. SERTraline 2021-0 Yes [id number] 200mg Take 2 Univers 100 mg 4-12 tablets by ity of tablet 00:00: mouth [place] 00 daily. Medical Branch buPROPion 2021-0 Yes [id number] 150mg Take 1 U nivers XL 4-12 tablet by ity of (WELLBUTRIN 00:00: mouth [place] XL) 150 mg 00 daily. Medical 24 hr Branch tablet busPIRone 2021-0 Yes [id number] 30mg Take 1 Un matt 30 mg 4-12 tablet by ity of tablet 00:00: mouth 2 [place] 00 (two) Medical times Branch daily. SERTraline 2021-0 Yes [id number] 200mg Take 2 Univers 100 mg 4-12 tablets by ity of tablet 00:00: mouth [place] 00 daily. Medical Branch buPROPion 2021-0 Yes [id number] 150mg Take 1 U nivers XL 4-12 tablet by ity of (WELLBUTRIN 00:00: mouth [place] XL) 150 mg 00 daily. Medical 24 hr Branch tablet busPIRone 2021-0 Yes [id number] 30mg Take 1 Un matt 30 mg 4-12 tablet by ity of tablet 00:00: mouth 2 [place] 00 (two) Medical times Branch daily. SERTraline 2021-0 Yes [id number] 200mg Take 2 Univers 100 mg 4-12 tablets by ity of tablet 00:00: mouth [place] 00 daily. Medical Branch raltegravir 2021-0 Yes [id number] 400mg Take 1 Univers (ISENTRESS) 3-28 tablet by ity of 400 mg 00:00: mouth 2 [place] tablet 00 (two) Medical times Branch daily. raltegravir 2021-0 Yes [id number] 400mg Take 1 Univers (ISENTRESS) 3-28 tablet by ity of 400 mg 00:00: mouth 2 [place] tablet 00 (two) Medical times Branch daily. raltegravir 2021-0 Yes [id number] 400mg Take 1 Univers (ISENTRESS) 3-28 tablet by ity of 400 mg 00:00: mouth 2 [place] tablet 00 (two) Medical times Branch daily. raltegravir 2021-0 Yes [id number] 400mg Take 1 Univers (ISENTRESS) 3-28 tablet by ity of 400 mg 00:00: mouth 2 [place] tablet 00 (two) Medical times Branch daily. raltegravir 2021-0 Yes [id number] 400mg Take 1 Univers (ISENTRESS) 3-28 tablet by ity of 400 mg 00:00: mouth 2 [place] tablet 00 (two) Medical times Branch daily. raltegravir 2021-0 Yes [id number] 400mg Take 1 Univers (ISENTRESS) 3-28 tablet by ity of 400 mg 00:00: mouth 2 [place] tablet 00 (two) Medical times Branch daily. raltegravir 2021-0 Yes [id number] 400mg Take 1 Univers (ISENTRESS) 3-28 tablet by ity of 400 mg 00:00: mouth 2 [place] tablet 00 (two) Medical times Branch daily. raltegravir 2021-0 Yes [id number] 400mg Take 1 Univers (ISENTRESS) 3-28 tablet by ity of 400 mg 00:00: mouth 2 [place] tablet 00 (two) Medical times Branch daily. raltegravir 2021-0 Yes [id number] 400mg Take 1 [facility] (ISENTRESS) 3-28 tablet by ity of 400 mg 00:00: mouth 2 [place] tablet 00 (two) Medical times Branch daily. raltegravir 2022-0 Yes [id number] 400mg Take 1 [facility] (ISENTRESS) 3-28 tablet by ity of 400 mg 00:00: mouth 2 [place] tablet 00 (two) Medical times Branch daily. raltegravir 2022-0 Yes [id number] 400mg Take 1 [facility] (ISENTRESS) 3-28 tablet by ity of 400 mg 00:00: mouth 2 [place] tablet 00 (two) Medical times Branch daily. raltegravir 2022-0 Yes [id number] 400mg Take 1 [facility] (ISENTRESS) 3-28 tablet by ity of 400 mg 00:00: mouth 2 [place] tablet 00 (two) Medical times Branch daily. raltegravir 2022-0 Yes [id number] 400mg Take 1 [facility] (ISENTRESS) 3-28 tablet by ity of 400 mg 00:00: mouth 2 [place] tablet 00 (two) Medical times Branch daily. raltegravir 2-0 Yes [id number] 400mg Take 1 [facility] (ISENTRESS) 3-28 tablet by ity of 400 mg 00:00: mouth 2 [place] tablet 00 (two) Medical times Branch daily. raltegravir 2022-0 Yes [id number] 400mg Take 1 [facility] (ISENTRESS) 3-28 tablet by ity of 400 mg 00:00: mouth 2 [place] tablet 00 (two) Medical times Branch daily. raltegravir 2022-0 Yes [id number] 400mg Take 1 [facility] (ISENTRESS) 3-28 tablet by ity of 400 mg 00:00: mouth 2 [place] tablet 00 (two) Medical times Branch daily. raltegravir 2022-0 Yes [id number] 400mg Take 1 [facility] (ISENTRESS) 3-28 tablet by ity of 400 mg 00:00: mouth 2 [place] tablet 00 (two) Medical times Branch daily. raltegravir 2022-0 Yes [id number] 400mg Take 1 [facility] (ISENTRESS) 3-28 tablet by ity of 400 mg 00:00: mouth 2 [place] tablet 00 (two) Medical times Branch daily. raltegravir 2022-0 Yes [id number] 400mg Take 1 [facility] (ISENTRESS) 3-28 tablet by ity of 400 mg 00:00: mouth 2 [place] tablet 00 (two) Medical times Branch daily. raltegravir Yes [id number] 400mg Take 1 [facility] (ISENTRESS) 3-28 tablet by ity of 400 mg 00:00: mouth 2 [place] tablet 00 (two) Medical times Branch daily. raltegravir 2022- No [id number] 400mg Take 1 [facility] (ISENTRESS) 3-28 05-08 tablet by it y of 400 mg 00:00: 00:00 mouth 2 [place] tablet 00 :00 (two) Medical times Branch daily. LORazepam 1 2021- No [id number] 1mg Take 1 [facility] mg tablet 3-10 [...] times a tablet day. emtricitabi 2021- No [id number] Take one [facility] ne-tenofovi 1-20 09-12 po daily ity of r alafen 00:00: 00:00 [place] (DESCOVY) 00 :00 Medical tablet Branch metoprolol Yes [id number] Take 1 [facility] tartrate 7-26 tablet [facility] (Lopressor) 00:00: (100 mg 100 MG 00 total) by tablet mouth 2 (two) times a day AND 0.5 tablets (50 mg total) every night. metoprolol Yes [id number] Take 1 [facility] tartrate 7-26 [facility] [...] (affected area in groin) hydrALAZINE Yes 50mg Q.[id number] Take 50 mg [facility] (APRESOLINE 7-19 [id number] [facility] mouth [facility] ) 50 MG [...] (affected area in groin) hydrALAZINE Yes 50mg Q.[id number] Take 50 mg [facility] (APRESOLINE 7-19 [id number] [address] mouth [facility] ) 50 MG [...] area in groin) hydrALAZINE 2021-0 Yes 50mg Q.[id number] Take 50 mg [facility] (APRESOLINE 7-19 [id number] [address] mouth 3 [facility] ) 50 MG [...] (affected area in groin) hydrALAZINE Yes 50mg Q.[id number] Take 50 mg [facility] (APRESOLINE 7-19 [id number] [address] mouth 3 [facility] ) 50 MG [...] (affected area in groin) hydrALAZINE Yes 50mg Q.[id number] Take 50 mg [facility] (APRESOLINE 7-19 [id number] [address] mouth 3 [facility] ) 50 MG [...] area in groin) hydrALAZINE 0 Yes 50mg Q.[id number] Take 50 mg [facility] (APRESOLINE 7-[id number] mouth 3 [address] ) 50 MG [...] (affected area in groin) hydrALAZINE Yes 50mg Q.46840364 Take 50 mg [facility] (APRESOLINE 7-19 [id number] mouth 3 [address] ) 50 MG [...] (affected area in groin) hydrALAZINE Yes 50mg Q.39050912 Take 50 mg [facility] (APRESOLINE 7-19 [id number] mouth 3 [facility] ) 50 MG [...] area in groin) hydrALAZINE 0 Yes 50mg Q.57389093 Take 50 mg [facility] (APRESOLINE 7-19 [id number] mouth 3 [facility] ) 50 MG [...] area in groin) hydrALAZINE 0 Yes 50mg Q.[id number] Take 50 mg [facility] (APRESOLINE 7-19 [id number] by mouth 3 st ) 50 MG [...] (affected area in groin) hydrALAZINE Yes 50mg Q.[id number] Take 50 mg [facility] (APRESOLINE - [id number] by mouth 3 st ) 50 MG [...] area in groin) hydrALAZINE 0 Yes 50mg Q.71440252 Take 50 mg [facility] (APRESOLINE -19 [id number] by mouth 3 st ) 50 MG [...] area in groin) hydrALAZINE 2020-0 Yes 50mg Q.68390859 Take 50 mg [facility] (APRESOLINE 7-19 [id number] [address] mouth 3 [facility] ) 50 MG [...] (affected area in groin) hydrALAZINE Yes 50mg Q.27694747 Take 50 mg [facility] (APRESOLINE -19 [id number] [address] mouth 3 [address] ) 50 MG [...] area in groin) hydrALAZINE 0 Yes 50mg Q.43335535 Take 50 mg [facility] (APRESOLINE 7-19 [id number] [address] mouth 3 [address] ) 50 MG [...] area in groin) hydrALAZINE 2020-0 Yes 50mg Q.93423044 Take 50 mg [facility] (APRESOLINE 7-19 [id number] mouth 3 [address] ) 50 MG [...] area in groin) hydrALAZINE 0 Yes 50mg Q.80025048 Take 50 mg [facility] (APRESOLINE 7-19 [id number] mouth 3 [address] ) 50 MG [...] (affected area in groin) hydrALAZINE Yes 50mg Q.14569728 Take 50 mg [facility] (APRESOLINE 7-19 [id number] [address] mouth 3 [address] ) 50 MG [...] area in groin) hydrALAZINE 2020-0 Yes 50mg Q.33199495 Take 50 mg [facility] (APRESOLINE -19 [id number] [address] mouth [facility] [address] ) 50 MG [...] area in groin) hydrALAZINE 0 Yes 50mg Q.86210423 Take 50 mg [facility] (APRESOLINE 7-19 [id number] [address] mouth 3 [address] ) 50 MG [...] (affected area in groin) hydrALAZINE Yes 50mg Q.[id number] Take 50 mg [facility] (APRESOLINE 7-19 [id number] [address] mouth 3 st ) 50 MG [...] area in groin) hydrALAZINE 0 Yes 50mg Q.74276616 Take 50 mg [facility] (APRESOLINE -19 [id number] by mouth 3 [facility] ) 50 MG [...] area in groin) hydrALAZINE 0 Yes 50mg Q.[id number] Take 50 mg [facility] (APRESOLINE 7-19 [id number] [address] mouth 3 [address] ) 50 MG [...] (affected area in groin) hydrALAZINE Yes 50mg Q.75169899 Take 50 mg [facility] (APRESOLINE 7-19 [id number] by mouth 3 [address] ) 50 MG [...] (affected area in groin) hydrALAZINE Yes 50mg Q.[id number] Take 50 mg [facility] (APRESOLINE 7-19 [id number] [address] mouth 3 [address] ) 50 MG [...] area in groin) hydrALAZINE 0 Yes 50mg Q.96342029 Take 50 mg [facility] (APRESOLINE 7-[id number] mouth 3 [address] ) 50 MG [...] area in groin) hydrALAZINE 0 Yes 50mg Q.83945619 Take 50 mg [facility] (APRESOLINE 7-19 [id number] [address] mouth 3 [address] ) 50 MG [...] (affected area in groin) hydrALAZINE Yes 50mg Q.19925331 Take 50 mg [facility] (APRESOLINE 7-19 [id number] mouth 3 [address] ) 50 MG [...] area in groin) hydrALAZINE 2020-0 Yes 50mg Q.12139984 Take 50 mg [facility] (APRESOLINE 7-[id number] mouth 3 [address] ) 50 MG [...] area in groin) hydrALAZINE 0 Yes 50mg Q.44381617 Take 50 mg [facility] (APRESOLINE 7-19 [id number] mouth 3 [address] ) 50 MG [...] (affected area in groin) hydrALAZINE Yes 50mg Q.[id number] Take 50 mg [facility] (APRESOLINE 7-19 [id number] mouth 3 [address] ) 50 MG [...] area in groin) hydrALAZINE 0 Yes 50mg Q.75415494 Take 50 mg [facility] (APRESOLINE 7-[id number] mouth 3 [address] ) 50 MG [...] area in groin) hydrALAZINE 0 Yes 50mg Q.39378669 Take 50 mg [facility] (APRESOLINE 7-19 [id number] mouth 3 [address] ) 50 MG [...] (affected area in groin) hydrALAZINE Yes 50mg Q.47748414 Take 50 mg [facility] (APRESOLINE 7-19 [id number] [address] mouth 3 [address] ) 50 MG [...] area in groin) hydrALAZINE 0 Yes 50mg Q.63351294 Take 50 mg [facility] (APRESOLINE 7-19 [id number] [address] mouth 3 [address] ) 50 MG [...] area in groin) hydrALAZINE 0 Yes 50mg Q.96065999 Take 50 mg [facility] (APRESOLINE 7-19 [id number] mouth 3 [address] ) 50 MG [...] area in groin) hydrALAZINE 0 Yes 50mg Q.63328340 Take 50 mg [facility] (APRESOLINE 7-19 [id number] mouth 3 [address] ) 50 MG [...] (affected area in groin) hydrALAZINE Yes 50mg Q.[id number] Take 50 mg [facility] (APRESOLINE 7-19 [id number] [address] mouth 3 [address] ) 50 MG [...] area in groin) hydrALAZINE 0 Yes 50mg Q.08538193 Take 50 mg [facility] (APRESOLINE 7-19 [id number] mouth 3 [address] ) 50 MG [...] area in groin) hydrALAZINE 0 Yes 50mg Q.87524797 Take 50 mg [facility] (APRESOLINE 7-[id number] mouth 3 [address] ) 50 MG [...] (affected area in groin) hydrALAZINE Yes 50mg Q.[id number] Take 50 mg [facility] (APRESOLINE 7-[id number] mouth 3 [address] ) 50 MG [...] area in groin) hydrALAZINE 0 Yes 50mg Q.[id number] Take 50 mg [facility] (APRESOLINE 7-[id number] mouth 3 [address] ) 50 MG [...] area in groin) hydrALAZINE 0 Yes 50mg Q.07923137 Take 50 mg [facility] (APRESOLINE 7-19 [id number] mouth 3 [address] ) 50 MG [...] (affected area in groin) hydrALAZINE Yes 50mg Q.94151389 Take 50 mg [facility] (APRESOLINE 7-19 [id number] mouth 3 [address] ) 50 MG [...] area in groin) hydrALAZINE 0 Yes 50mg Q.[id number] Take 50 mg [facility] (APRESOLINE 7-[address]18[address] mouth 3 [address] ) 50 MG [...] area in groin) hydrALAZINE 2021-0 Yes 50mg Q.[id number] Take 50 mg [facility] (APRESOLINE 7-[id number] mouth 3 [address] ) 50 MG [...] area in groin) hydrALAZINE 0 Yes 50mg Q.57627493 Take 50 mg [facility] (APRESOLINE 7-[id number] mouth 3 [address] ) 50 MG [...] (affected area in groin) hydrALAZINE Yes 50mg Q.25688604 Take 50 mg [facility] (APRESOLINE -19 [id number] by mouth 3 [facility] ) 50 MG [...] area in groin) hydrALAZINE 0 Yes 50mg Q.[id number] Take 50 mg [facility] (APRESOLINE 7-[id number] mouth 3 [address] ) 50 MG [...] (affected area in groin) hydrALAZINE Yes 50mg Q.40847941 Take 50 mg [facility] (APRESOLINE 7-[id number] mouth 3 [address] ) 50 MG [...] (affected area in groin) hydrALAZINE Yes 50mg Q.[id number] Take 50 mg [facility] (APRESOLINE 7-[id number] mouth 3 [address] ) 50 MG [...] area in groin) hydrALAZINE 0 Yes 50mg Q.[id number] Take 50 mg [facility] (APRESOLINE 7-[id number] mouth 3 [address] ) 50 MG [...] area in groin) hydrALAZINE 0 Yes 50mg Q.[id number] Take 50 mg [facility] (APRESOLINE 7-19 [id number] mouth 3 [address] ) 50 MG [...] (affected area in groin) hydrALAZINE Yes 50mg Q.[id number] Take 50 mg [facility] (APRESOLINE 7-[id number] mouth 3 [address] ) 50 MG [...] (affected area in groin) hydrALAZINE Yes 50mg Q.[id number] Take 50 mg [facility] (APRESOLINE 7-[id number] mouth 3 [address] ) 50 MG [...] area in groin) hydrALAZINE 0 Yes 50mg Q.[id number] Take 50 mg [facility] (APRESOLINE 7-[id number] mouth 3 [address] ) 50 MG [...] (affected area in groin) hydrALAZINE Yes 50mg Q.[id number] Take 50 mg [facility] (APRESOLINE 7-19 [id number] mouth [facility] [address] ) 50 MG [...] [facility] tablet 25 l nystatin-tr 2021-0 Yes [id number] Apply to [facility] iamcinolone 7-06 area(s) 3 ity of cream 00:00: (three) [place] 00 times Medical daily. Branch nystatin-tr 2021-0 Yes [id number] Apply to [facility] iamcinolone 7-06 area(s) 3 ity of cream 00:00: (three) [place] 00 times Medical daily. Branch nystatin-tr 2021-0 Yes [id number] Apply to [facility] iamcinolone 7-06 area(s) 3 ity of cream 00:00: (three) [place] 00 times Medical daily. Branch nystatin-tr 2021-0 Yes [id number] Apply to [facility] iamcinolone 7-06 area(s) 3 ity of cream 00:00: (three) [place] 00 times Medical daily. Branch nystatin-tr 2021-0 Yes [id number] Apply to [facility] iamcinolone 7-06 area(s) 3 ity of cream 00:00: (three) [place] 00 times Medical daily. Branch nystatin-tr 2021-0 Yes [id number] Apply to [facility] iamcinolone 7-06 area(s) 3 ity of cream 00:00: (three) [place] 00 times Medical daily. Branch nystatin-tr 2021-0 Yes [id number] Apply to [facility] iamcinolone 7-06 area(s) 3 ity of cream 00:00: (three) [place] 00 times Medical daily. Branch nystatin-tr 2021-0 Yes [id number] Apply to [facility] iamcinolone 7-06 area(s) 3 ity of cream 00:00: (three) [place] 00 times Medical daily. Branch nystatin-tr 2021-0 Yes [id number] Apply to [facility] iamcinolone 7-06 area(s) 3 ity of cream 00:00: (three) [place] 00 times Medical daily. Branch nystatin-tr 2021-0 Yes [id number] Apply to [facility] iamcinolone 7-06 area(s) 3 ity of cream 00:00: (three) [place] 00 times Medical daily. Branch nystatin-tr 2021-0 Yes [id number] Apply to [facility] iamcinolone 7-06 area(s) 3 ity of cream 00:00: (three) [place] 00 times Medical daily. Branch nystatin-tr 2021-0 Yes [id number] Apply to [facility] iamcinolone 7-06 area(s) 3 ity of cream 00:00: (three) [place] 00 times Medical daily. Branch nystatin-tr 2021-0 Yes [id number] Apply to [facility] iamcinolone 7-06 area(s) 3 ity of cream 00:00: (three) [place] 00 times Medical daily. Branch nystatin-tr 2021-0 Yes [id number] Apply to [facility] iamcinolone 7-06 area(s) 3 ity of cream 00:00: (three) [place] 00 times Medical daily. Branch nystatin-tr 2021-0 Yes [id number] Apply to [facility] iamcinolone 7-06 area(s) 3 ity of cream 00:00: (three) [place] 00 times Medical daily. Branch nystatin-tr 2021-0 Yes [id number] Apply to [facility] iamcinolone 7-06 area(s) 3 ity of cream 00:00: (three) [place] 00 times Medical daily. Branch nystatin-tr 2021-0 Yes [id number] Apply to [facility] iamcinolone 7-06 area(s) 3 ity of cream 00:00: (three) [place] 00 times Medical daily. Branch nystatin-tr 2021-0 Yes [id number] Apply to [facility] iamcinolone 7-06 area(s) 3 ity of cream 00:00: (three) [place] 00 times Medical daily. Branch nystatin-tr 2021-0 Yes [id number] Apply to [facility] iamcinolone 7-06 area(s) 3 ity of cream 00:00: (three) [place] 00 times Medical daily. Branch nystatin-tr 2020-0 Yes [id number] Apply to [facility] iainolone 7 area(s) 3 ity of cream 00:00: (three) [place] 00 times Medical daily. Branch nystatin-tr 2020-0 Yes [id number] Apply to [facility] iainolone 7- area(s) 3 ity of cream 00:00: (three) [place] 00 times Medical daily. Branch nystatin-tr 2020-0 Yes [id number] Apply to [facility] iainolone 7- area(s) 3 ity of cream 00:00: (three) [place] 00 times Medical daily. Branch budesonide- 0 2021- No 1{puff} QD Inhale 1 [facility] formoteroL 6-25 06-[address] (SYMBICORT) 14:37: 00:00 morning. H ospita 160-4.5 02 :00 l mcg/actuati on inhaler hydrALAZINE 0 Yes [id number] 50mg Q.[id number] Take 1 [facility] (Apresoline 6-11 [id number] tablet (50 Health ) 50 MG 00:00: 3D mg total) tablet 00 by mouth 3 (three) times a day. hydrALAZINE 0 Yes [id number] 50mg Q.[id number] Take 1 [facility] (Apresoline 6-11 [id number] tablet (50 Health ) 50 MG 00:00: [...] 5-30 Health tablet 00:00: 00 sertraline 0 2- No 200mg 200 mg. [facility] (Zoloft) 5-30 02-22 [facility] 100 MG 00:00: 00:00 tablet 00 :00 mupirocin 2020-0 Yes [facility] (Bactroban) 5-28 Health 2 % 00:00: ointment 00 mupirocin 0 Yes [facility] (Bactroban) 5-28 Health 2 % 00:00: ointment 00 nystatin 0 2020- No [id number] Q.25D Take 5 mL [facility] (MYCOSTATIN 17 [...] ia 4-10 (Same as: l 14:00: Zoloft) [place] 00 Sertraline No Notes: [facility] ia 4-10 (Same as: l 14:00: Zoloft) [place] 00 pantoprazol No Notes: [place] lisa e 4-10 Tablet l 14:00: should not [place] 00 be chewed or crushed. (Same as: Protonix) Amiodarone No Notes: [facility] ia 4-10 (Same as: l 14:00: Cordarone) [place] Amlodipine No Notes: [facility] ia 4-10 (Same as: l 14:00: Norvasc) [place] emtricitabi No Notes: [place] lisa ne 200 MG / 4-10 (Same as: l tenofovir 14:00: Descovy) Herm ariel alafenamide 00 Non-formul 25 MG Oral nancy Tablet [Descovy] Sertraline No Notes: Mem[facility] ia 4-10 (Same as: l 14:00: Zoloft) [place] 00 pantoprazol No Notes: [place] lisa e 4-10 Tablet l 14:00: should not [place] 00 be chewed or crushed. (Same as: Protonix) Amiodarone No Notes: [facility] ia 4-10 (Same as: l 14:00: Cordarone) [place] 00 Amlodipine No Notes: Memor ia 4-10 (Same as: l 14:00: Norvasc) [place] 00 emtricitabi No Notes: [place] lisa ne 200 MG / 4-10 (Same as: l tenofovir 14:00: Descovy) Herm ariel alafenamide 00 Non-formul 25 MG Oral nancy Tablet [Descovy] Sertraline No Notes: [facility] ia 4-10 (Same as: l 14:00: Zoloft) [place] 00 pantoprazol No Notes: [place] lisa e 4-10 Tablet l 14:00: should not [place] 00 be chewed or crushed. (Same as: [...] e 4-10 Tablet l 14:00: should not [place] 00 be chewed or crushed. (Same as: [...] e 4-10 Tablet l 14:00: should not [place] 00 be chewed or crushed. (Same as: Protonix) Amiodarone No Notes: Memor ia 4-10 (Same as: l 14:00: Cordarone) [place] Sucralfate No Notes: May M emoria 4-10 interfere l 02:00: w/enteral [place] 00 feeds - Take 1 hr before or 2 hr after antacids, dairy pdt, meals & minerals - On empty stomach. For patients unable to swallow tablet, dissolve in 10mL - 30mL of water or juice and stir before giving. (Same As: Carafate) Saline No Notes: [facility] Flush 0.9% 4-10 (Same as: l 02:00: BD [place] Posiflush) Eliquis No Notes: [facility] 4-10 Same [...] 0.9% 4-10 (Same as: l 02:00: BD [place] Posiflush) Eliquis No Notes: [facility] 4-10 Same as: l 02:00: Eliquis [place] 00 Hydralazine No Notes: [place] lisa Hydrochlori [...] M emoria 4-10 interfere l 02:00: w/enteral [place] 00 feeds - Take 1 hr before or 2 hr after antacids, dairy pdt, meals & minerals - On empty stomach. For patients unable to swallow tablet, dissolve in 10mL - 30mL of water or juice and stir before giving. (Same As: Carafate) Saline No Notes: [facility] Flush 0.9% 4-10 (Same as: l 02:00: BD [place] 00 Posiflush) Eliquis No Notes: [facility] 4-10 Same as: l 02:00: Eliquis [place] Hydralazine No Notes: Caesar lisa Hydrochlori 4-10 (Same as: l de 50 MG 02:00: Apresoline Her mitchell Oral Tablet 00 ) May interfere w/enteral feedings Take With Food Sucralfate No Notes: May M emoria 4-10 interfere l 02:00: w/enteral [place] 00 feeds - Take 1 hr before [...] Memoria 4-10 Same as: l 02:00: Eliquis [place] Hydralazine No Notes: [place] lisa Hydrochlori 4-10 [...] 0.9% 4-10 (Same as: l 02:00: BD [place] Posiflush) Eliquis No Notes: [facility] 4-10 Same as: l 02:00: Eliquis [place] 00 Hydralazine No Notes: [place] lisa Hydrochlori 4-10 (Same as: l de 50 MG 02:00: Apresoline Her [place] Oral Tablet 00 ) May interfere w/enteral feedings Take With Food Sucralfate No Notes: May M emoria 4-10 interfere l 02:00: w/enteral [place] 00 feeds - Take 1 hr before or 2 hr after antacids, dairy pdt, meals & minerals - On empty stomach. For patients unable to swallow tablet, dissolve in 10mL - 30mL of water or juice and stir before giving. (Same As: Carafate) Saline No Notes: [facility] Flush 0.9% 4-10 (Same as: l 02:00: BD [place] 00 Posiflush) Eliquis No Notes: [facility] 4-10 Same as: l 02:00: Eliquis [place] Hydralazine No Notes: Caesar lisa Hydrochlori 4-10 [...] not exceed l #3 00:12: 4gm/day of [place] 00 acetaminop hen. (Same as: Tylenol with Codeine # 3) acetaminoph No Notes: Do M emoria en-codeine 4-10 not exceed l #3 00:12: 4gm/day of [place] acetaminop hen. (Same as: Tylenol with Codeine # 3) acetaminoph No Notes: Do M emoria en-codeine 4-10 not exceed l #3 00:12: 4gm/day of [place] acetaminop hen. (Same as: Tylenol with Codeine # 3) acetaminoph No Notes: Do M emoria en-codeine 4-10 not exceed l #3 00:12: 4gm/day of [place] 00 acetaminop hen. (Same as: Tylenol with Codeine # 3) acetaminoph No Notes: Do M emoria en-codeine 4-10 not exceed l #3 00:12: 4gm/day of [place] acetaminop hen. (Same as: Tylenol with Codeine [...] tartrate 4-09 tab, l 22:00: Route: PO, [place] 00 Drug form: TAB, BID, Dosing Weight [...] tartrate 4-09 tab, l 22:00: Route: PO, [place] Drug form: TAB, BID, Dosing Weight 97.273, [...] tartrate 4-09 tab, l 22:00: Route: PO, [place] Drug form: TAB, BID, Dosing Weight 97.273, [...] tartrate 4-09 tab, l 22:00: Route: PO, [place] Drug form: TAB, BID, Dosing Weight 97.273, [...] tartrate 4-09 tab, l 22:00: Route: PO, [place] 00 Drug form: TAB, BID, Dosing Weight [...] oria 4-09 tab, l 22:00: Route: PO, [place] 00 Drug form: TAB, BID, Dosing Weight [...] oria 4-09 tab, l 22:00: Route: PO, [place] 00 Drug form: TAB, BID, Dosing Weight 97.273, kg, Start date: 08/29/20 17:00:00 CDT, Duration: 30 day, Stop date: 09/28/20 9:00:00 CDT metoprolol 1-0 No 100 mg, 1 Me moria tartrate 4-09 tab, l 22:00: Route: PO, [place] Drug form: TAB, BID, Dosing Weight 97.273, [...] Notes: [facility]oria 4-09 (Same l 17:07: as:MORPhin [place] 00 e Sulfate) Morphine No Notes: [facility] 4-09 (Same l 17:07: as:MORPhin [place] 00 e Sulfate) Morphine No Notes: [facility] 4-09 (Same l 17:07: as:MORPhin [place] 00 e Sulfate) Morphine No Notes: [facility] 4-09 (Same l 17:07: as:MORPhin [place] 00 e Sulfate) Morphine No Notes: [facility] 4-09 (Same l 17:07: as:MORPhin [place] 00 e Sulfate) Morphine No Notes: [facility] 4-09 (Same l 17:07: as:MORPhin [place] 00 e Sulfate) Morphine No Notes: [facility] 4-09 (Same l 17:07: as:MORPhin [place] 00 e Sulfate) buPROPion 0 No 150 [...] tab, PO, l oral 15:27: Daily, # [place] enteric 00 30 tab, 0 coated Refill(s), tablet Pharmacy: [place] [id number], 162.56, cm, 08/29/20 5:30:00 CDT, Height, 97.273, kg, 08/29/20 5:30:00 CDT, Weight pantoprazol 2020-0 Yes 40 mg = 1 M emoria e 40 mg 4-09 tab, PO, l oral 15:27: Daily, # [place] enteric 00 30 tab, 0 coated Refill(s), tablet Pharmacy: [facility], 162.56, cm, 08/29/20 5:30:00 CDT, Height, 97.273, kg, 08/29/20 5:30:00 CDT, Weight pantoprazol 2021-0 Yes 40 mg = 1 M emoria e 40 mg 4-09 tab, PO, l oral 15:27: Daily, # [place] enteric 00 30 tab, 0 coated Refill(s), tablet [facility], 162.56, cm, 08/29/20 5:30:00 CDT, Height, 97.273, kg, 08/29/20 5:30:00 CDT, Weight pantoprazol 1-0 Yes 40 mg = 1 M emoria e 40 mg 4-09 tab, PO, l oral 15:27: Daily, # [place] enteric 00 30 tab, 0 coated Refill(s), tablet Pharmacy: [facility] 149, 162.56, cm, 08/29/20 5:30:00 CDT, Height, 97.273, kg, 08/29/20 5:30:00 CDT, Weight pantoprazol 1-0 Yes 40 mg = 1 M emoria e 40 mg 4-09 tab, PO, l oral 15:27: Daily, # [place] enteric 00 30 tab, 0 coated Refill(s), tablet Pharmacy: [facility] 149, 162.56, cm, 08/29/20 5:30:00 CDT, Height, 97.273, kg, 08/29/20 5:30:00 CDT, Weight pantoprazol 1-0 Yes 40 mg = 1 M emoria e 40 mg 4-09 tab, PO, l oral 15:27: Daily, # [place] enteric 00 30 tab, 0 coated Refill(s), tablet Pharmacy: [facility] 149, 162.56, cm, 08/29/20 5:30:00 CDT, Height, 97.273, kg, 08/29/20 5:30:00 CDT, Weight pantoprazol 2021-0 Yes 40 mg = 1 M emoria e 40 mg 4-09 tab, PO, l oral 15:27: Daily, # [place] enteric 00 30 tab, 0 coated Refill(s), [facility], 162.56, cm, 08/29/20 5:30:00 CDT, Height, [...] Skylar nn 00 tab, 0 Refill(s), Pharmacy: [facility] 149, 162.56, cm, 08/29/20 5:30:00 CDT, Height, 97.273, kg, 08/29/20 5:30:00 CDT, Weight pantoprazol 0 No 40 mg = 1 M emoria e 40 mg 4-09 tab, PO, l oral 15:26: Daily, # [place] enteric 00 30 tab, 0 coated Refill(s) tablet sucralfate 2020-0 Yes 1 gm = 1 Mem oria 1 g oral 4-09 tab, PO, l tablet 15:26: Q12H, # 28 [place] nn 00 tab, 0 Refill(s), Pharmacy: [facility] 149, 162.56, cm, 08/29/20 5:30:00 CDT, Height, 97.273, kg, 08/29/20 5:30:00 CDT, Weight pantoprazol 2020-0 No 40 mg = 1 M emoria e 40 mg 4-09 tab, PO, l oral 15:26: Daily, # [place] enteric 00 30 tab, 0 coated Refill(s) tablet sucralfate 2020-0 Yes 1 gm = 1 Mem oria 1 g oral 4-09 tab, PO, l tablet 15:26: Q12H, # 28 [place] nn 00 tab, 0 Refill(s), Pharmacy: [facility] 149, 162.56, cm, 08/29/20 5:30:00 CDT, Height, 97.273, kg, 08/29/20 5:30:00 CDT, Weight pantoprazol 2020-0 No 40 mg = 1 M emoria e 40 mg 4-09 tab, PO, l oral 15:26: Daily, # [place] enteric 00 30 tab, 0 coated Refill(s) tablet sucralfate 2020-0 Yes 1 gm = 1 Mem oria 1 g oral 4-09 tab, PO, l tablet 15:26: Q12H, # 28 [place] nn 00 tab, 0 Refill(s), Pharmacy: [facility] 149, 162.56, cm, 08/29/20 5:30:00 CDT, Height, 97.273, kg, 08/29/20 5:30:00 CDT, Weight pantoprazol 2020-0 No 40 mg = 1 M emoria e 40 mg 4-09 tab, PO, l oral 15:26: Daily, # [place] enteric 00 30 tab, 0 coated Refill(s) tablet sucralfate 2020-0 Yes 1 gm = 1 Mem oria 1 g oral 4-09 tab, PO, l tablet 15:26: Q12H, # 28 Skylar nn 00 tab, 0 Refill(s), Pharmacy: [facility], 162.56, cm, 08/29/20 5:30:00 CDT, Height, 97.273, kg, 08/29/20 5:30:00 CDT, Weight pantoprazol 2020-0 No 40 mg = 1 M emoria e 40 mg 4-09 tab, PO, l oral 15:26: Daily, # [facility] 00 30 tab, 0 coated Refill(s) tablet sucralfate 2020-0 Yes 1 gm = 1 Mem oria 1 g oral 4-09 tab, PO, l tablet 15:26: Q12H, # 28 Skylar nn 00 tab, 0 Refill(s), Pharmacy: [place] [id number], 162.56, cm, 08/29/20 5:30:00 CDT, Height, 97.273, [...] Skylar nn 00 tab, 0 Refill(s), Pharmacy: [place] [address], 162.56, cm, 08/29/20 5:30:00 CDT, Height, 97.273, kg, 08/29/20 5:30:00 CDT, Weight Saline No Notes: Mem[facility] Flush 0.9% 4-09 (Same as: l 15:25: BD Marty 00 Posiflush) Lorazepam No Notes: Memori a 4-09 (Same as: l 15:25: Ativan) [place] Saline No Notes: [facility] Flush 0.9% 4-09 (Same as: l 15:25: BD Marty 00 Posiflush) Lorazepam No Notes: Memori a 4-09 (Same as: l 15:25: Ativan) [place] Saline No Notes: [facility] Flush 0.9% 4-09 (Same as: l 15:25: BD [place] 00 Posiflush) Saline No Notes: [facility] Flush 0.9% 4-09 (Same as: l 15:25: BD [place] 00 Posiflush) Lorazepam No Notes: [facility] a 4-09 (Same as: l 15:25: Ativan) [place] 00 Lorazepam No Notes: [facility] a 4-09 (Same as: l 15:25: Ativan) [place] Saline No Notes: [facility] Flush 0.9% 4-09 (Same as: l 15:25: BD [place] 00 Posiflush) Lorazepam No Notes: [facility] a 4-09 (Same as: l 15:25: Ativan) [place] Saline No Notes: [facility] Flush 0.9% 4-09 (Same as: l 15:25: BD [place] 00 Posiflush) Lorazepam No Notes: [facility] a 4-09 (Same as: l 15:25: Ativan) [place] Saline No Notes: [facility] Flush 0.9% 4-09 (Same as: l 15:25: BD [place] 00 Posiflush) Lorazepam No Notes: [facility] a 4-09 (Same as: l 15:25: Ativan) [place] Isuprel HCl 0 No Route: IV, [facility] (ANES) 0.2 08-29 Drug form: l mg + 15:00: INJ, [place] Dosing Weight 97.3, kg, Start date: 08/29/20 10:00:00 CDT, Stop date: 08/29/20 11:00:00 CDT Isuprel HCl 2020-0 No Route: IV, [facility] (ANES) 0.2 08-29 Drug form: l mg + 15:00: INJ, [place] Dosing Weight 97.3, kg, Start date: 08/29/20 [...] Drug form: l mg + 15:00: INJ, [place] Dosing Weight 97.3, kg, Start date: 08/29/20 10:00:00 CDT, Stop date: 08/29/20 11:00:00 CDT Isuprel HCl 2020-0 No Route: IV, [facility] (ANES) 0.2 08-29 Drug form: l mg + 15:00: INJ, [place] 00 Dosing Weight 97.3, kg, Start date: 08/29/20 10:00:00 CDT, Stop date: 08/29/20 11:00:00 CDT Isuprel HCl 2020-0 No Route: IV, [facility] (ANES) 0.2 08-29 Drug form: l mg + 15:00: INJ, [place] 00 Dosing Weight 97.3, kg, Start date: [...] 08-29 Drug form: l 14:18: INJ, ONCE, [place] Stop date: 08/29/20 9:18:00 CDT heparin 2020-0 No Route: IV, Caesar lisa (ANES) 08-29 Drug form: l 14:18: INJ, ONCE, [place] 00 Stop date: 08/29/20 9:18:00 CDT Labetalol 2020-0 No 10 mg, Mem[facility] a 08-29 Route: l 14:01: IVP, [place] 00 Q5Min, Dosing Weight 97.273, kg, PRN Elevated BP, Start date: 08/29/20 9:01:00 CDT, Duration: 5 doses or times, Stop date: Limited # of times Acetaminoph 2020-0 No 1,000 mg, M emoria en 08-29 Route: PO, l 14:01: Drug form: [place] 00 TAB, ONCE, Dosing Weight 97.273, kg, [...] Memori a 08-29 Route: l 14:01: IVP, [place] 00 Q2MIN, Dosing Weight 97.273, kg, PRN [...] oria ne 08-29 Route: l 14:01: IVP, [place] 00 Q5Min, Dosing Weight 97.273, kg, PRN Pain Score 7-10, Start date: 08/29/20 9:01:00 CDT, Duration: 4 doses or times, Stop date: Limited # of times Flumazenil 2021-0 No 0.2 mg, [place] lisa 08-29 Route: l 14:01: IVP, PRN, [place] Dosing Weight 97.273, kg, PRN Benzodiaze pine Reversal, Initial dose, Start date: 08/29/20 9:01:00 CDT, Duration: 30 day, Stop date: 09/28/20 9:00:00 CDT Naloxone 2021-0 No 0.4 mg, [facility] a 08-29 Route: l 14:01: IVP, [place] 00 Q2MIN, Dosing Weight 97.273, kg, PRN Narcotic Reversal, Start date: 08/29/20 9:01:00 CDT, Duration: 8 doses or times, Stop date: Limited # of times Ondansetron 2021-0 No 4 mg, Mem[facility] ia 08-29 Route: l 14:01: IVP, ONCE, [place] Dosing Weight 97.273, kg, PRN Nausea & Vomiting, Start date: 08/29/20 9:01:00 CDT Labetalol 2021-0 No 10 mg, [facility] a 08-29 Route: l 14:01: IVP, [place] 00 Q5Min, Dosing Weight 97.273, kg, PRN Elevated BP, Start date: 08/29/20 9:01:00 CDT, Duration: 5 doses or times, Stop date: Limited # of times Acetaminoph 2021-0 No 1,000 mg, M emoria en 08-29 Route: PO, l 14:01: Drug form: [place] 00 TAB, ONCE, Dosing Weight 97.273, kg, [...] oria ne 08-29 Route: l 14:01: IVP, [place] 00 Q5Min, Dosing Weight 97.273, kg, PRN [...] Mem[facility] a 08-29 Route: l 14:01: IVP, [place] 00 Q2MIN, Dosing Weight 97.273, kg, PRN [...] [facility] a 08-29 Route: l 14:01: IVP, [place] 00 Q5Min, Dosing Weight 97.273, kg, PRN Elevated BP, Start date: 08/29/20 9:01:00 CDT, Duration: 5 doses or times, Stop date: Limited # of times Acetaminoph 2021-0 No 1,000 mg, M emoria en 08-29 Route: PO, l 14:01: Drug form: [place] 00 TAB, ONCE, Dosing Weight 97.273, kg, [...] oria ne 08-29 Route: l 14:01: IVP, [place] 00 Q5Min, Dosing Weight 97.273, kg, PRN Pain Score 7-10, Start date: 08/29/20 9:01:00 CDT, Duration: 4 doses or times, Stop date: Limited # of times Flumazenil 2021-0 No 0.2 mg, [place] lisa 08-29 Route: l 14:01: IVP, PRN, [place] 00 Dosing Weight 97.273, kg, PRN Benzodiaze pine Reversal, Initial dose, Start date: 08/29/20 9:01:00 CDT, Duration: 30 day, Stop date: 09/28/20 9:00:00 CDT Naloxone 2021-0 No 0.4 mg, [facility] a 08-29 Route: l 14:01: IVP, [place] 00 Q2MIN, Dosing Weight 97.273, kg, PRN Narcotic Reversal, Start date: 08/29/20 9:01:00 CDT, Duration: 8 doses or times, Stop date: Limited # of times Flumazenil 2021-0 No 0.2 mg, [place] lisa 08-29 Route: l 14:01: IVP, PRN, [place] 00 Dosing Weight 97.273, kg, PRN Benzodiaze pine Reversal, Initial dose, Start date: 08/29/20 9:01:00 CDT, Duration: 30 day, Stop date: 09/28/20 9:00:00 CDT Ondansetron 2021-0 No 4 mg, [facility] ia 08-29 Route: l 14:01: IVP, ONCE, [place] 00 Dosing Weight 97.273, kg, PRN Nausea & Vomiting, Start date: 08/29/20 9:01:00 CDT Naloxone 1-0 No 0.4 mg, [facility] a 08-29 Route: l 14:01: IVP, [place] 00 Q2MIN, Dosing Weight 97.273, kg, PRN Narcotic Reversal, Start date: 08/29/20 9:01:00 CDT, Duration: 8 doses or times, Stop date: Limited # of times Ondansetron 2021-0 No 4 mg, [facility] 08-29 Route: l 14:01: IVP, ONCE, [place] 00 Dosing Weight 97.273, kg, PRN Nausea & Vomiting, Start date: 08/29/20 9:01:00 CDT Labetalol 2021-0 No 10 mg, Memori a - Route: l 14:01: IVP, [place] 00 Q5Min, Dosing Weight 97.273, kg, PRN Elevated BP, Start date: 08/29/20 9:01:00 CDT, Duration: 5 doses or times, Stop date: Limited # of times Acetaminoph 2021-0 No 1,000 mg, M emoria en 4-09 Route: PO, l 14:01: Drug form: [place] 00 TAB, ONCE, Dosing Weight 97.273, kg, [...] oria ne 08-29 Route: l 14:01: IVP, [place] 00 Q5Min, Dosing Weight 97.273, kg, PRN Pain Score 7-10, Start date: 08/29/20 9:01:00 CDT, Duration: 4 doses or times, Stop date: Limited # of times Flumazenil 2020-0 No 0.2 mg, [place] lisa 08-29 Route: l 14:01: IVP, PRN, [place] 00 Dosing Weight 97.273, kg, PRN Benzodiaze pine Reversal, Initial dose, Start date: 08/29/20 9:01:00 CDT, Duration: 30 day, Stop date: 09/28/20 9:00:00 CDT Naloxone 1-0 No 0.4 mg, Mem[facility] a 08-29 Route: l 14:01: IVP, [place] 00 Q2MIN, Dosing Weight 97.273, kg, PRN [...] Mem[facility] a 08-29 Route: l 14:01: IVP, [place] 00 Q5Min, Dosing Weight 97.273, kg, PRN Elevated BP, Start date: 08/29/20 9:01:00 CDT, Duration: 5 doses or times, Stop date: Limited # of times Acetaminoph 2021-0 No 1,000 mg, M emoria en 08-29 Route: PO, l 14:01: Drug form: [place] 00 TAB, ONCE, Dosing Weight 97.273, kg, [...] oria ne 08-29 Route: l 14:01: IVP, [place] 00 Q5Min, Dosing Weight 97.273, kg, PRN Pain Score 7-10, Start date: 08/29/20 9:01:00 CDT, Duration: 4 doses or times, Stop date: Limited # of times Flumazenil 2020-0 No 0.2 mg, [place] lisa 08-29 Route: l 14:01: IVP, PRN, [place] 00 Dosing Weight 97.273, kg, PRN Benzodiaze [...] Vomiting, Start date: 08/29/20 9:01:00 CDT lidocaine 202-0 No Route: IV, Me [...] 08-29 Drug form: l 13:42: INJ, ONCE, [place] 00 Stop date: 08/29/20 8:42:00 CDT fentaNYL [...] Drug form: l 10 13:15: INJ, Start [place] microgram date: 08/29/20 8:15:00 CDT, Stop date: 08/29/20 9:15:00 CDT norepinephr 0 No Route: IV, [facility] ine (ANES) 08-29 Drug form: l 10 13:15: INJ, Start [place] microgram date: 08/29/20 8:15:00 CDT, Stop date: 08/29/20 9:15:00 CDT norepinephr 2020-0 No Route: IV, [facility] ine (ANES) - Drug form: l 10 13:15: INJ, Start [place] microgram 00 date: 08/29/20 8:15:00 CDT, Stop date: 08/29/20 9:15:00 CDT norepinephr 2020-0 No Route: IV, [facility] ine (ANES) 08-29 Drug form: l 10 13:15: INJ, Start [place] microgram 00 date: 08/29/20 8:15:00 CDT, Stop date: 08/29/20 9:15:00 CDT norepinephr 2020-0 No Route: IV, [facility] ine (ANES) 08-29 Drug form: l 10 13:15: INJ, Start [place] microgram 00 date: 08/29/20 8:15:00 CDT, Stop date: 08/29/20 9:15:00 CDT norepinephr 2020-0 No Route: IV, [facility] ine (ANES) 08-29 Drug form: l 10 13:15: INJ, Start [place] microgram 00 date: 08/29/20 8:15:00 CDT, Stop date: 08/29/20 9:15:00 CDT Sodium 2020-0 No Route: IV, [facility] Chloride 4-09 Total l 0.9% IV 12:30: Volume: [place] (ANES) 1000 00 1,000, mL Start date: 08/29/20 7:30:00 CDT, Stop date: 08/29/20 8:30:00 CDT Sodium 2020-0 No Route: IV, [facility] Chloride 4-09 Total l 0.9% IV 12:30: Volume: [place] (ANES) 1000 00 1,000, mL Start date: 08/29/20 7:30:00 CDT, Stop date: 08/29/20 8:30:00 CDT Sodium 202-0 No Route: IV, [facility] Chloride 4-09 Total l 0.9% IV 12:30: Volume: [place] (ANES) 1000 00 1,000, mL Start date: 08/29/20 7:30:00 CDT, Stop date: 08/29/20 8:30:00 CDT Sodium 2021-0 No Route: IV, [facility] Chloride 4-09 Total l 0.9% IV 12:30: Volume: [place] (ANES) 1000 00 1,000, mL Start date: 08/29/20 7:30:00 CDT, Stop date: 08/29/20 8:30:00 CDT Sodium 2021-0 No Route: IV, [facility] Chloride 4-09 Total l 0.9% IV 12:30: Volume: [place] (ANES) 1000 00 1,000, mL Start date: 08/29/20 7:30:00 CDT, Stop date: 08/29/20 8:30:00 CDT Sodium 2021-0 No Route: IV, [facility] Chloride 4-09 Total l 0.9% IV 12:30: Volume: [place] (ANES) 1000 00 1,000, mL Start date: 08/29/20 7:30:00 CDT, Stop date: 08/29/20 8:30:00 CDT Sodium 2021-0 No Route: IV, [facility] Chloride 4-09 Total l 0.9% IV 12:30: Volume: [place] (ANES) 1000 00 1,000, mL Start date: [...] PO, l Hydrochlori 11:42: Q24H, # 30 [place] de 150 MG 00 tab, 0 Extended [...] PO, l Hydrochlori 11:42: Q24H, # 30 [place] de 150 MG 00 tab, 0 Extended Refill(s) Release Tablet apixaban 5 2020-0 Yes 5 mg, PO, Me moria MG Oral 4- Q12H, tab, l Tablet 11:41: 0 [place] [Eliquis] 00 Refill(s), For Atrial Fibrilatio n apixaban 5 2020-0 Yes 5 mg, PO, Me moria MG Oral 4- Q12H, tab, l Tablet 11:41: 0 [place] [Eliquis] 00 Refill(s), For Atrial Fibrilatio n apixaban 5 2020-0 Yes 5 mg, PO, Me moria MG Oral 4- Q12H, tab, l Tablet 11:41: 0 [place] [Eliquis] 00 Refill(s), For Atrial Fibrilatio n apixaban 5 2020-0 Yes 5 mg, PO, Me moria MG Oral 4- Q12H, tab, l Tablet 11:41: 0 [place] [Eliquis] 00 Refill(s), For Atrial Fibrilatio n apixaban 5 2020-0 Yes 5 mg, PO, Me mor[place] MG Oral 4- Q12H, tab, l Tablet 11:41: 0 [place] [Eliquis] 00 Refill(s), For Atrial Fibrilatio n apixaban 5 2020-0 Yes 5 mg, PO, Me mor[place] MG Oral 4-09 Q12H, tab, l Tablet 11:41: 0 [place] [Eliquis] 00 Refill(s), For Atrial Fibrilatio n apixaban 5 2020-0 Yes 5 mg, PO, Me mor[place] MG Oral 4-09 Q12H, tab, l Tablet 11:41: 0 [place] [Eliquis] 00 Refill(s), For Atrial Fibrilatio n AMIODarone 2020-0 Yes 200 mg = 1 M [place] 200 mg oral 4-09 tab, PO, l tablet 11:38: Daily, # [place] 00 90 tab, 3 Refill(s) AMIODarone 2020-0 Yes 200 mg = 1 M [place] 200 mg oral 4-09 tab, PO, l tablet 11:38: Daily, # [place] 00 90 tab, 3 Refill(s) AMIODarone 1-0 Yes 200 mg = 1 M [place] 200 mg oral 4-09 tab, PO, l tablet 11:38: Daily, # [place] 00 90 tab, 3 Refill(s) AMIODarone 2020-0 Yes 200 mg = 1 M [place] 200 mg oral 4-09 tab, PO, l tablet 11:38: Daily, # [place] 00 90 tab, 3 Refill(s) AMIODarone 1-0 Yes 200 mg = 1 M [place] 200 mg oral 4-09 tab, PO, l tablet 11:38: Daily, # [place] 00 90 tab, 3 Refill(s) AMIODarone 1-0 Yes 200 mg = 1 M [place] 200 mg oral 4-09 tab, PO, l tablet 11:38: Daily, # [place] 00 90 tab, 3 Refill(s) AMIODarone 2020-0 Yes 200 mg = 1 M [place] 200 mg oral 4-09 tab, PO, l tablet 11:38: Daily, # [place] 00 90 tab, 3 Refill(s) normal 0 [...] [facility] 90 4-14 ity of mcg/actuati 00:00: [place] on inhaler [facility] albuterol Yes albuterol [...] Immunizations Ordered Filled Immunization Date Status Comments [facility] e Immunization Name Name SARS-COV-2 COVID-19 [...] YRS+, Branch BIVALENT 0.3ML, IM, (PFIZER PANCHAL [facility]) Influenza Virus 2022-03-05 Completed [facility] [place] [facility] 65+ PFIZER COVID-19 2020-07-23 Completed [facility] MRNA VACCINATION 00:00:00 [facility] PFIZER COVID-19 2020-07-23 Completed [facility] MRNA VACCINATION 00:00:00 [facility] PFIZER COVID-19 2020-07-23 Completed [facility] MRNA VACCINATION 00:00:00 [facility] PFIZER COVID-19 2020-07-23 Completed [facility] MRNA VACCINATION 00:00:00 [facility] PFIZER COVID-19 2020-07-23 Completed [facility] MRNA VACCINATION 00:00:00 [facility] PFIZER COVID-19 2020-07-23 Completed [facility] MRNA VACCINATION 00:00:00 [facility] PFIZER COVID-19 2020-07-23 Completed [facility] MRNA VACCINATION 00:00:00 [facility] PFIZER COVID-19 2020-07-23 Completed [facility] MRNA VACCINATION 00:00:00 [facility] PFIZER COVID-19 2020-07-23 Completed [facility] MRNA VACCINATION 00:00:00 [facility] PFIZER COVID-19 2020-07-23 Completed [facility] MRNA VACCINATION 00:00:00 [facility] PFIZER COVID-19 2020-07-23 Completed [facility] MRNA VACCINATION 00:00:00 [facility] PFIZER COVID-19 2020-07-23 Completed [facility] MRNA VACCINATION 00:00:00 [facility] PFIZER COVID-19 2020-07-23 Completed [facility] MRNA VACCINATION 00:00:00 [facility] PFIZER COVID-19 2020-07-23 Completed [facility] MRNA VACCINATION 00:00:00 [facility] PFIZER COVID-19 2020-07-23 Completed [facility] MRNA VACCINATION 00:00:00 [facility] PFIZER COVID-19 2020-07-23 Completed [facility] MRNA VACCINATION 00:00:00 [facility] PFIZER COVID-19 2020-07-23 Completed [facility] MRNA VACCINATION 00:00:00 [facility] COVID-19 2020-07-23 Completed [facility] MRNA VACCINATION 00:00:00 [facility] PFIZER COVID-19 2020-07-23 Completed [facility] MRNA VACCINATION 00:00:00 [facility] PFIZER COVID-19 2020-07-23 Completed [facility] MRNA VACCINATION 00:00:00 [facility] PEG COVID-19 2020-07-23 Completed [facility] MRNA VACCINATION 00:00:00 [facility] PFIZER COVID-19 2020-07-23 Completed [facility] MRNA VACCINATION 00:00:00 [facility] PFIZER COVID-19 2020-07-23 Completed [facility] MRNA VACCINATION 00:00:00 [facility] PFIZER COVID-19 2020-07-23 Completed [facility] MRNA VACCINATION 00:00:00 [facility] PEG COVID-19 2020-07-23 Completed [facility] MRNA VACCINATION 00:00:00 [facility] PEG COVID-19 2020-07-23 Completed [facility] MRNA VACCINATION 00:00:00 [facility] PEG COVID-19 2020-07-23 Completed [facility] MRNA VACCINATION 00:00:00 [facility] PEG COVID-19 2020-07-23 Completed [facility] MRNA VACCINATION 00:00:00 [facility] PEG COVID-19 2020-07-23 Completed [facility] MRNA VACCINATION 00:00:00 [facility] PEG COVID-19 2020-07-23 Completed [facility] MRNA VACCINATION 00:00:00 [facility] PEG COVID-19 2020-07-23 Completed [facility] MRNA VACCINATION 00:00:00 [facility] PEG COVID-19 2020-07-23 Completed [facility] MRNA VACCINATION 00:00:00 [facility] PFIZER COVID-19 2020-07-23 Completed [facility] MRNA VACCINATION 00:00:00 [facility] PFIZER COVID-19 2020-07-23 Completed [facility] MRNA VACCINATION 00:00:00 [facility] PFIZER COVID-19 2020-07-23 Completed [facility] MRNA VACCINATION 00:00:00 [facility] PFIZER COVID-19 2020-07-23 Completed [facility] MRNA VACCINATION 00:00:00 [facility] PFIZER COVID-19 2020-07-23 Completed [facility] MRNA VACCINATION 00:00:00 [facility] PFIZER COVID-19 2020-07-23 Completed [facility] MRNA VACCINATION 00:00:00 [facility] PFIZER COVID-19 2020-07-23 Completed [facility] MRNA VACCINATION 00:00:00 [facility] PFIZER COVID-19 2020-07-23 Completed [facility] MRNA VACCINATION 00:00:00 [facility] PFIZER COVID-19 2020-07-23 Completed [facility] MRNA VACCINATION 00:00:00 [facility] PFIZER COVID-19 2020-07-23 Completed [facility] MRNA VACCINATION 00:00:00 [facility] PFIZER COVID-19 2020-07-23 Completed [facility] MRNA VACCINATION 00:00:00 [facility] PFIZER COVID-19 2020-07-23 Completed [facility] MRNA VACCINATION 00:00:00 [facility] PFIZER COVID-19 2020-07-23 Completed [facility] MRNA VACCINATION 00:00:00 [facility] PFIZER COVID-19 2020-07-23 Completed [facility] MRNA VACCINATION 00:00:00 [facility] PFIZER COVID-19 2020-07-23 Completed [facility] MRNA VACCINATION 00:00:00 [facility] PFIZER COVID-19 2020-07-23 Completed [facility] MRNA VACCINATION 00:00:00 [facility] PFIZER COVID-19 2020-07-23 Completed [facility] MRNA VACCINATION 00:00:00 [facility] PFIZER COVID-19 2020-07-23 Completed [facility] MRNA VACCINATION 00:00:00 [facility] PFIZER COVID-19 2020-07-23 Completed [facility] MRNA VACCINATION 00:00:00 [facility] PFIZER COVID-19 2020-07-23 Completed [facility] MRNA VACCINATION 00:00:00 [facility] PFIZER COVID-19 2020-07-23 Completed [facility] MRNA VACCINATION 00:00:00 [facility] PFIZER COVID-19 2020-07-23 Completed [facility] MRNA VACCINATION 00:00:00 [facility] PFIZER COVID-19 2020-07-23 Completed [facility] MRNA VACCINATION 00:00:00 [facility] PFIZER COVID-19 2020-07-23 Completed [facility] MRNA VACCINATION 00:00:00 [facility] SARS-COV-2 COVID-19 2020-07-23 Completed Unive rsity of PFIZER VACCINE 00:00:00 [facility] SARS-COV-2 COVID-19 2020-07-23 Completed Unive rsity of PFIZER VACCINE 00:00:00 [facility] SARS-COV-2 COVID-19 2020-07-23 Completed Unive rsity of PFIZER VACCINE 00:00:00 [facility] SARS-COV-2 COVID-19 2020-07-23 Completed Unive rsity of PFIZER VACCINE 00:00:00 [facility] SARS-COV-2 COVID-19 2020-07-23 Completed Unive rsity of PFIZER VACCINE 00:00:00 [facility] SARS-COV-2 COVID-19 2020-07-23 Completed Unive rsity of PFIZER VACCINE 00:00:00 [facility] SARS-COV-2 COVID-19 2020-07-23 Completed Unive rsity of PFIZER VACCINE 00:00:00 [facility] SARS-COV-2 COVID-19 2020-07-23 Completed Unive rsity of PFIZER VACCINE 00:00:00 [facility] SARS-COV-2 COVID-19 2020-07-23 Completed Unive rsity of PFIZER VACCINE 00:00:00 [facility] SARS-COV-2 COVID-19 2020-07-23 Completed Unive rsity of PFIZER VACCINE 00:00:00 [facility] SARS-COV-2 COVID-19 2020-07-23 Completed Unive rsity of PFIZER VACCINE 00:00:00 [facility] SARS-COV-2 COVID-19 2020-07-23 Completed Unive rsity of PFIZER VACCINE 00:00:00 [facility] SARS-COV-2 COVID-19 2020-07-23 Completed Unive rsity of PFIZER VACCINE 00:00:00 [facility] SARS-COV-2 COVID-19 2020-07-23 Completed Unive rsity of PFIZER VACCINE 00:00:00 [facility] SARS-COV-2 COVID-19 2020-07-23 Completed Unive rsity of PFIZER VACCINE 00:00:00 [facility] SARS-COV-2 COVID-19 2020-07-23 Completed Unive rsity of PFIZER VACCINE 00:00:00 [facility] SARS-COV-2 COVID-19 2020-07-23 Completed Unive rsity of PFIZER VACCINE 00:00:00 [facility] SARS-COV-2 COVID-19 2020-07-23 Completed Unive rsity of PFIZER VACCINE 00:00:00 [facility] PFIZER COVID-19 2020-07-23 Completed [facility] MRNA VACCINATION 00:00:00 [facility] PFIZER COVID-19 2020-07-02 Completed [facility] MRNA VACCINATION 00:00:00 [facility] PFIZER COVID-19 2020-07-02 Completed [facility] MRNA VACCINATION 00:00:00 [facility] PFIZER COVID-19 2020-07-02 Completed [facility] MRNA VACCINATION 00:00:00 [facility] PFIZER COVID-19 2020-07-02 Completed [facility] MRNA VACCINATION 00:00:00 [facility] PFIZER COVID-19 2020-07-02 Completed [facility] MRNA VACCINATION 00:00:00 [facility] PFIZER COVID-19 2020-07-02 Completed [facility] MRNA VACCINATION 00:00:00 [facility] PFIZER COVID-19 2020-07-02 Completed [facility] MRNA VACCINATION 00:00:00 [facility] PFIZER COVID-19 2020-07-02 Completed [facility] MRNA VACCINATION 00:00:00 [facility] PFIZER COVID-19 2020-07-02 Completed [facility] MRNA VACCINATION 00:00:00 [facility] PFIZER COVID-19 2020-07-02 Completed [facility] MRNA VACCINATION 00:00:00 [facility] PEG COVID-19 2020-07-02 Completed [facility] MRNA VACCINATION 00:00:00 [facility] PEG COVID-19 2020-07-02 Completed [facility] MRNA VACCINATION 00:00:00 [facility] PFIZER COVID-19 2020-07-02 Completed [facility] MRNA VACCINATION 00:00:00 [facility] PFIZER COVID-19 2020-07-02 Completed [facility] MRNA VACCINATION 00:00:00 [facility] PFIZER COVID-19 2020-07-02 Completed [facility] MRNA VACCINATION 00:00:00 [facility] PFIZER COVID-19 2020-07-02 Completed [facility] MRNA VACCINATION 00:00:00 [facility] PFIZER COVID-19 2020-07-02 Completed [facility] MRNA VACCINATION 00:00:00 [facility] PFIZER COVID-19 2020-07-02 Completed [facility] MRNA VACCINATION 00:00:00 [facility] PFIZER COVID-19 2020-07-02 Completed [facility] MRNA VACCINATION 00:00:00 [facility] PFIZER COVID-19 2020-07-02 Completed [facility] MRNA VACCINATION 00:00:00 [facility] PFIZER COVID-19 2020-07-02 Completed [facility] MRNA VACCINATION 00:00:00 [facility] PFIZER COVID-19 2020-07-02 Completed [facility] MRNA VACCINATION 00:00:00 [facility] PFIZER COVID-19 2020-07-02 Completed [facility] MRNA VACCINATION 00:00:00 [facility] PFIZER COVID-19 2020-07-02 Completed [facility] MRNA VACCINATION 00:00:00 [facility] PFIZER COVID-19 2020-07-02 Completed [facility] MRNA VACCINATION 00:00:00 [facility] PFIZER COVID-19 2020-07-02 Completed [facility] MRNA VACCINATION 00:00:00 [facility] PFIZER COVID-19 2020-07-02 Completed [facility] MRNA VACCINATION 00:00:00 [facility] PFIZER COVID-19 2020-07-02 Completed [facility] MRNA VACCINATION 00:00:00 [facility] PFIZER COVID-19 2020-07-02 Completed [facility] MRNA VACCINATION 00:00:00 [facility] PFIZER COVID-19 2020-07-02 Completed [facility] MRNA VACCINATION 00:00:00 [facility] PFIZER COVID-19 2020-07-02 Completed [facility] MRNA VACCINATION 00:00:00 [facility] PFIZER COVID-19 2020-07-02 Completed [facility] MRNA VACCINATION 00:00:00 [facility] PFIZER COVID-19 2020-07-02 Completed [facility] MRNA VACCINATION 00:00:00 [facility] PFIZER COVID-19 2020-07-02 Completed [facility] MRNA VACCINATION 00:00:00 [facility] PFIZER COVID-19 2020-07-02 Completed [facility] MRNA VACCINATION 00:00:00 [facility] PFIZER COVID-19 2020-07-02 Completed [facility] MRNA VACCINATION 00:00:00 [facility] PFIZER COVID-19 2020-07-02 Completed [facility] MRNA VACCINATION 00:00:00 [facility] PFIZER COVID-19 2020-07-02 Completed [facility] MRNA VACCINATION 00:00:00 [facility] PFIZER COVID-19 2020-07-02 Completed [facility] MRNA VACCINATION 00:00:00 [facility] PFIZER COVID-19 2020-07-02 Completed [facility] MRNA VACCINATION 00:00:00 [facility] PFIZER COVID-19 2020-07-02 Completed [facility] MRNA VACCINATION 00:00:00 [facility] PFIZER COVID-19 2020-07-02 Completed [facility] MRNA VACCINATION 00:00:00 [facility] PFIZER COVID-19 2020-07-02 Completed [facility] MRNA VACCINATION 00:00:00 [facility] PFIZER COVID-19 2020-07-02 Completed [facility] MRNA VACCINATION 00:00:00 [facility] PFIZER COVID-19 2020-07-02 Completed [facility] MRNA VACCINATION 00:00:00 [facility] PFIZER COVID-19 2020-07-02 Completed [facility] MRNA VACCINATION 00:00:00 [facility] PFIZER COVID-19 2020-07-02 Completed [facility] MRNA VACCINATION 00:00:00 [facility] PFIZER COVID-19 2020-07-02 Completed [facility] MRNA VACCINATION 00:00:00 [facility] PFIZER COVID-19 2020-07-02 Completed [facility] MRNA VACCINATION 00:00:00 [facility] PFIZER COVID-19 2020-07-02 Completed [facility] MRNA VACCINATION 00:00:00 [facility] PFIZER COVID-19 2020-07-02 Completed [facility] MRNA VACCINATION 00:00:00 [facility] PFIZER COVID-19 2020-07-02 Completed [facility] MRNA VACCINATION 00:00:00 [facility] PFIZER COVID-19 2020-07-02 Completed [facility] MRNA VACCINATION 00:00:00 [facility] PFIZER COVID-19 2020-07-02 Completed [facility] MRNA VACCINATION 00:00:00 [facility] PFIZER COVID-19 2020-07-02 Completed [facility] MRNA VACCINATION 00:00:00 [facility] PFIZER COVID-19 2020-07-02 Completed [facility] MRNA VACCINATION 00:00:00 [facility] SARS-COV-2 COVID-19 2020-07-02 Completed Unive [facility]ity of PFIZER VACCINE 00:00:00 [facility] SARS-COV-2 COVID-19 2020-07-02 Completed [facility]ive [facility] of PFIZER VACCINE 00:00:00 [facility] SARS-COV-2 COVID-19 2020-07-02 Completed [facility]ive rs[facility] of PFIZER VACCINE 00:00:00 [facility] SARS-COV-2 COVID-19 2020-07-02 Completed [facility]ive [facility] of PFIZER VACCINE 00:00:00 [facility] SARS-COV-2 COVID-19 2020-07-02 Completed [facility]ive [facility] of PFIZER VACCINE 00:00:00 [facility] SARS-COV-2 COVID-19 2020-07-02 Completed [facility]ive rsity of PFIZER VACCINE 00:00:00 [facility] SARS-COV-2 COVID-19 2020-07-02 Completed [facility]ive rs[facility] of PFIZER VACCINE 00:00:00 [facility] SARS-COV-2 COVID-19 2020-07-02 Completed [facility] of PFIZER VACCINE 00:00:00 [facility] SARS-COV-2 COVID-19 2020-07-02 Completed [facility]ive [facility] of PFIZER VACCINE 00:00:00 [facility] SARS-COV-2 COVID-19 2020-07-02 Completed [facility]ive [facility] of PFIZER VACCINE 00:00:00 [facility] SARS-COV-2 COVID-19 2020-07-02 Completed [facility]ive [facility] of PFIZER VACCINE 00:00:00 [facility] SARS-COV-2 COVID-19 2020-07-02 Completed [facility]ive rs[facility] of PFIZER VACCINE 00:00:00 [facility] SARS-COV-2 COVID-19 2020-07-02 Completed [facility] of PFIZER VACCINE 00:00:00 [facility] SARS-COV-2 COVID-19 2020-07-02 Completed [facility] of PFIZER VACCINE 00:00:00 [facility] SARS-COV-2 COVID-19 2020-07-02 Completed [facility]ive rs[facility] of PFIZER VACCINE 00:00:00 [facility] SARS-COV-2 COVID-19 2020-07-02 Completed [facility]ive rs[facility] of PFIZER VACCINE 00:00:00 [facility] SARS-COV-2 COVID-19 2020-07-02 Completed [facility] of PFIZER VACCINE 00:00:00 [facility] SARS-COV-2 COVID-19 2020-07-02 Completed [facility]ive rs[facility] of PFIZER VACCINE 00:00:00 [facility] PFIZER COVID-19 2020-07-02 Completed [facility] MRNA VACCINATION 00:00:00 [facility] Influenza Virus 2017-03-08 Completed [facility]it [facility] of Vaccine 00:00:00 [facility] Influenza Virus 2017-03-08 Completed [facility] of Vaccine 00:00:00 [facility] Influenza Virus 2017-03-08 Completed [facility] of Vaccine 00:00:00 [facility] Influenza Virus 2017-03-08 Completed [facility] of Vaccine 00:00:00 [facility] Influenza Virus 2017-03-08 Completed [facility] of Vaccine 00:00:00 [facility] Influenza Virus 2017-03-08 Completed [facility] of Vaccine 00:00:00 [facility] Influenza Virus 2017-03-08 Completed [facility] of Vaccine 00:00:00 [facility] Influenza Virus 2017-03-08 Completed [facility] of Vaccine 00:00:00 [facility] Influenza Virus 2017-03-08 Completed [facility] of Vaccine 00:00:00 [facility] Influenza Virus 2017-03-08 Completed [facility] of Vaccine 00:00:00 [facility] Influenza Virus 2017-03-08 Completed [facility] of Vaccine 00:00:00 [facility] Influenza Virus 2017-03-08 Completed [facility] of Vaccine 00:00:00 [facility] Influenza Virus 2017-03-08 Completed [facility] of Vaccine 00:00:00 [facility] Influenza Virus 2017-03-08 Completed [facility]it [facility] of Vaccine 00:00:00 [facility] Influenza Virus 2017-03-08 Completed [facility]it [facility] of Vaccine 00:00:00 [facility] Influenza Virus 2017-03-08 Completed [facility] of Vaccine 00:00:00 [facility] Influenza Virus 2017-03-08 Completed [facility] of Vaccine 00:00:00 [facility] Influenza Virus 2017-03-08 Completed [facility] of Vaccine 00:00:00 [facility] Influenza Virus 2017-03-08 Completed [facility] of Vaccine 00:00:00 [facility] Influenza Virus 2017-03-08 Completed [facility] of Vaccine 00:00:00 [facility] Influenza Virus 2017-03-08 Completed [facility] of Vaccine 00:00:00 [facility] Influenza Virus 2017-03-08 Completed [facility] of Vaccine 00:00:00 [facility] Influenza Virus 2014-01-30 Completed [facility]it [facility] of Vaccine (3+ yrs) 00:00:00 [facility] Pneumococcal 13 2014-01-30 Completed Universit y of Conjugate, PCV13 00:00:00 [facility] (Prevnar 13) [place] Influenza Virus 2014-01-30 Completed Universit y of Vaccine (3+ yrs) 00:00:00 [facility] Pneumococcal 13 2014-01-30 Completed [facility]it y of Conjugate, PCV13 00:00:00 [facility] dical (Prevnar 13) Branch Influenza Virus 2014-01-30 Completed [facility] of Vaccine (3+ yrs) 00:00:00 [facility] Pneumococcal 13 2014-01-30 Completed [facility] Conjugate, PCV13 00:00:[facility] Influenza Virus 2014-01-30 Completed [facility] of Vaccine (3+ yrs) 00:00:00 [facility] Pneumococcal 13 2014-01-30 Completed [facility] Conjugate, PCV13 00:00:00 [facility] [place] Influenza Virus 2014-01-30 Completed [facility] Vaccine (3+ yrs) 00:00:00 [facility] Pneumococcal 13 2014-01-30 Completed [facility] of Conjugate, PCV13 00:00:00 [facility] (Prevnar 13) [facility] Influenza Virus 2014-01-30 Completed [facility] of Vaccine (3+ yrs) 00:00:00 [facility] Pneumococcal 13 2014-01-30 Completed [facility] of Conjugate, PCV13 00:00:00 [place] [facility] (Prevnar 13) [facility] Influenza Virus 2014-01-30 Completed [facility] of Vaccine (3+ yrs) 00:00:00 [facility] Pneumococcal 13 2014-01-30 Completed [facility]it [facility] of Conjugate, PCV13 00:00:00 [facility] (Prevnar 13) Branch Influenza Virus 2014-01-30 Completed [facility] of Vaccine (3+ yrs) 00:00:00 [facility] Pneumococcal 13 2014-01-30 Completed [facility] of Conjugate, PCV13 00:00:00 [place] [facility] (Prevnar 13) Branch Influenza Virus 2014-01-30 Completed [facility]it [facility] of Vaccine (3+ yrs) 00:00:00 [facility] Branch Pneumococcal 13 2014-01-30 Completed [facility]it y of Conjugate, PCV13 00:00:00 [place] [facility] (Prevnar 13) Branch Influenza Virus 2014-01-30 Completed [facility]it [facility] of Vaccine (3+ yrs) 00:00:00 [facility] Pneumococcal 13 2014-01-30 Completed [facility]it [facility] of Conjugate, PCV13 00:00:00 [place] [facility] (Prevnar 13) Branch Influenza Virus 2014-01-30 Completed [facility] of Vaccine (3+ yrs) 00:00:00 [facility] Pneumococcal 13 2014-01-30 Completed [facility] of Conjugate, PCV13 00:00:00 [place] [facility] (Prevnar 13) Branch Influenza Virus 2014-01-30 Completed [facility] of Vaccine (3+ yrs) 00:00:00 [facility] Pneumococcal 13 2014-01-30 Completed [facility]it y of Conjugate, PCV13 00:00:00 [facility] (Prevnar 13) Branch Influenza Virus 2014-01-30 Completed [facility] of Vaccine (3+ yrs) 00:00:00 [facility] Branch Pneumococcal 13 2014-01-30 Completed [facility]it [facility] of Conjugate, PCV13 00:00:00 [place] [facility] (Prevnar 13) Branch Influenza Virus 2014-01-30 Completed [facility] of Vaccine (3+ yrs) 00:00:00 [facility] Pneumococcal 13 2014-01-30 Completed [facility] of Conjugate, PCV13 00:00:00 [place] [facility] (Prevnar 13) Branch Influenza Virus 2014-01-30 Completed [facility] of Vaccine (3+ yrs) 00:00:00 [facility] Pneumococcal 13 2014-01-30 Completed [facility] of Conjugate, PCV13 00:00:00 [place] [facility] (Prevnar 13) Branch Influenza Virus 2014-01-30 Completed [facility] of Vaccine (3+ yrs) 00:00:00 [facility] Pneumococcal 13 2014-01-30 Completed [facility] of Conjugate, PCV13 00:00:00 [facility] (Prevnar 13) Branch Influenza Virus 2014-01-30 Completed [facility]it [facility] of Vaccine (3+ yrs) 00:00:00 [facility] Branch Pneumococcal 13 2014-01-30 Completed [facility]it y of Conjugate, PCV13 00:00:00 [facility] (Prevnar 13) Branch Influenza Virus 2014-01-30 Completed [facility]it [facility] of Vaccine (3+ yrs) 00:00:00 [facility] Branch Pneumococcal 13 2014-01-30 Completed [facility]it y of Conjugate, PCV13 00:00:00 [facility] (Prevnar 13) Branch Influenza Virus 2014-01-30 Completed [facility]it y of Vaccine (3+ yrs) 00:00:00 [facility] Branch Pneumococcal 13 2014-01-30 Completed [facility]it [facility] of Conjugate, PCV13 00:00:00 [place] [facility] (Prevnar 13) Branch Influenza Virus 2014-01-30 Completed [facility] of Vaccine (3+ yrs) 00:00:00 [place] [facility] Pneumococcal 13 2014-01-30 Completed [facility] of Conjugate, PCV13 00:00:00 [place] [facility] (Prevnar 13) Branch Influenza Virus 2014-01-30 Completed [facility] of Vaccine (3+ yrs) 00:00:00 [facility] Branch Pneumococcal 13 2014-01-30 Completed [facility]it y of Conjugate, PCV13 00:00:00 [facility] (Prevnar 13) Branch Influenza Virus 2014-01-30 Completed [facility]it y of Vaccine (3+ yrs) 00:00:00 [facility] Branch Pneumococcal 13 2014-01-30 Completed [facility]it y of Conjugate, PCV13 00:00:00 [facility] (Prevnar 13) Branch Pneumococcal 2012-02-16 Completed University o f Polysaccharide, 00:00:00 [place] [facility] PPSV23 (PNEUMOVAX) Branch Influenza Virus 2012-02-16 Completed [facility]it [facility] of Vaccine 00:00:00 [facility] PPD (TB) 2012-02-16 Completed University of 00:00:00 [facility] Pneumococcal 2012-02-16 Completed University o f Polysaccharide, 00:00:00 [place] [facility] PPSV23 (PNEUMOVAX) Branch Influenza Virus 2012-02-16 Completed [facility] of Vaccine 00:00:00 [facility] PPD (TB) 2012-02-16 Completed University of 00:00:00 [facility] Pneumococcal 2012-02-16 Completed University o f Polysaccharide, 00:00:00 [place] [facility] PPSV23 (PNEUMOVAX) Branch Influenza Virus 2012-02-16 Completed [facility] of Vaccine 00:00:00 [facility] PPD (TB) 2012-02-16 Completed [facility] of 00:00:00 [facility] Pneumococcal 2012-02-16 Completed University o f Polysaccharide, 00:00:00 [place] [facility] PPSV23 (PNEUMOVAX) Branch Influenza Virus 2012-02-16 Completed [facility] of Vaccine 00:00:00 [facility] PPD (TB) 2012-02-16 Completed University of 00:00:00 [facility] Pneumococcal 2012-02-16 Completed University o f Polysaccharide, 00:00:00 [place] [facility] PPSV23 (PNEUMOVAX) Branch Influenza Virus 2012-02-16 Completed [facility] of Vaccine 00:00:00 [facility] PPD (TB) 2012-02-16 Completed University of 00:00:00 [facility] Pneumococcal 2012-02-16 Completed University o f Polysaccharide, 00:00:00 [place] [facility] PPSV23 (PNEUMOVAX) Branch Influenza Virus 2012-02-16 Completed [facility] of Vaccine 00:00:00 [facility] PPD (TB) 2012-02-16 Completed [facility] of 00:00:00 [facility] Pneumococcal 2012-02-16 Completed University o f Polysaccharide, 00:00:00 [place] [facility] PPSV23 (PNEUMOVAX) Branch Influenza Virus 2012-02-16 Completed [facility] of Vaccine 00:00:00 [facility] PPD (TB) 2012-02-16 Completed University of 00:00:00 [facility] Pneumococcal 2012-02-16 Completed University o f Polysaccharide, 00:00:00 [place] [facility] PPSV23 (PNEUMOVAX) Branch Influenza Virus 2012-02-16 Completed [facility] of Vaccine 00:00:00 [facility] PPD (TB) 2012-02-16 Completed University of 00:00:00 [facility] Pneumococcal 2012-02-16 Completed University o f Polysaccharide, 00:00:00 [place] [facility] PPSV23 (PNEUMOVAX) Branch Influenza Virus 2012-02-16 Completed [facility] of Vaccine 00:00:00 [facility] PPD (TB) 2012-02-16 Completed University of 00:00:00 [facility] Pneumococcal 2012-02-16 Completed University o f Polysaccharide, 00:00:00 [place] [facility] PPSV23 (PNEUMOVAX) Branch Influenza Virus 2012-02-16 Completed [facility] of Vaccine 00:00:00 [facility] PPD (TB) 2012-02-16 Completed University of 00:00:00 [facility] Pneumococcal 2012-02-16 Completed [facility] o f Polysaccharide, 00:00:00 [place] [facility] PPSV23 (PNEUMOVAX) Branch Influenza Virus 2012-02-16 Completed [facility] of Vaccine 00:00:00 [facility] PPD (TB) 2012-02-16 Completed [facility] of 00:00:00 [facility] Pneumococcal 2012-02-16 Completed [facility] o f Polysaccharide, 00:00:00 [place] [facility] PPSV23 (PNEUMOVAX) Branch Influenza Virus 2012-02-16 Completed [facility] of Vaccine 00:00:00 [facility] PPD (TB) 2012-02-16 Completed University of 00:00:00 [facility] Pneumococcal 2012-02-16 Completed University o f Polysaccharide, 00:00:00 [place] [facility] PPSV23 (PNEUMOVAX) Branch Influenza Virus 2012-02-16 Completed [facility] of Vaccine 00:00:00 [facility] PPD (TB) 2012-02-16 Completed University of 00:00:00 [facility] Pneumococcal 2012-02-16 Completed [facility] o f Polysaccharide, 00:00:00 [place] [facility] PPSV23 (PNEUMOVAX) Branch Influenza Virus 2012-02-16 Completed [facility] of Vaccine 00:00:00 [facility] PPD (TB) 2012-02-16 Completed [facility] of 00:00:00 [facility] Pneumococcal 2012-02-16 Completed [facility] o f Polysaccharide, 00:00:00 [place] [facility] PPSV23 (PNEUMOVAX) Branch Influenza Virus 2012-02-16 Completed [facility] of Vaccine 00:00:00 [facility] PPD (TB) 2012-02-16 Completed [facility] of 00:00:00 [facility] Pneumococcal 2012-02-16 Completed [facility] o f Polysaccharide, 00:00:00 [place] [facility] PPSV23 (PNEUMOVAX) Branch Influenza Virus 2012-02-16 Completed [facility] of Vaccine 00:00:00 [facility] PPD (TB) 2012-02-16 Completed University of 00:00:00 [facility] Pneumococcal 2012-02-16 Completed University o f Polysaccharide, 00:00:00 [place] [facility] PPSV23 (PNEUMOVAX) Branch Influenza Virus 2012-02-16 Completed [facility] of Vaccine 00:00:00 [facility] PPD (TB) 2012-02-16 Completed [facility] of 00:00:00 [facility] Pneumococcal 2012-02-16 Completed [facility] o f Polysaccharide, 00:00:00 [place] [facility] PPSV23 (PNEUMOVAX) Branch Influenza Virus 2012-02-16 Completed [facility] of Vaccine 00:00:00 [facility] PPD (TB) 2012-02-16 Completed [facility] of 00:00:00 [facility] Pneumococcal 2012-02-16 Completed [facility] o f Polysaccharide, 00:00:00 [place] [facility] PPSV23 (PNEUMOVAX) Branch Influenza Virus 2012-02-16 Completed [facility] of Vaccine 00:00:00 [facility] PPD (TB) 2012-02-16 Completed [facility] of 00:00:00 [facility] Pneumococcal 2012-02-16 Completed [facility] o f Polysaccharide, 00:00:00 [place] [facility] PPSV23 (PNEUMOVAX) Branch Influenza Virus 2012-02-16 Completed [facility] of Vaccine 00:00:00 [facility] PPD (TB) 2012-02-16 Completed [facility] of 00:00:00 [facility] Pneumococcal 2012-02-16 Completed University o f Polysaccharide, 00:00:00 [place] [facility] PPSV23 (PNEUMOVAX) Branch Influenza Virus 2012-02-16 Completed [facility] of Vaccine 00:00:00 [facility] PPD (TB) 2012-02-16 Completed [facility] of 00:00:00 [facility] Pneumococcal 2012-02-16 Completed University o f Polysaccharide, 00:00:00 [facility] PPSV23 (PNEUMOVAX) Branch Influenza Virus 2012-02-16 Completed [facility] of Vaccine 00:00:00 [facility] PPD (TB) 2012-02-16 Completed University of 00:00:00 [facility] Hep B, Adol or Pedi 2011-09-01 Completed Unive rsity of Dosage 00:00:00 [facility] Hep B, Adol or Pedi 2011-09-01 Completed Unive rsity of Dosage 00:00:00 [facility] Hep B, Adol or Pedi 2011-09-01 Completed [facility]ive rs[facility] of Dosage 00:00:00 [facility] Hep B, Adol or Pedi 2011-09-01 Completed [facility]ive rsity of Dosage 00:00:00 [facility] Hep B, Adol or Pedi 2011-09-01 Completed [facility]ive rs[facility] of Dosage 00:00:00 [facility] Hep B, Adol or Pedi 2011-09-01 Completed [facility]ive rs[facility] of Dosage 00:00:00 [facility] Hep B, Adol or Pedi 2011-09-01 Completed [facility]ive [facility] of Dosage 00:00:00 [facility] Hep B, Adol or Pedi 2011-09-01 Completed [facility]ive [facility] of Dosage 00:00:00 [facility] Hep B, Adol or Pedi 2011-09-01 Completed [facility] of Dosage 00:00:00 [facility] Hep B, Adol or Pedi 2011-09-01 Completed [facility] of Dosage 00:00:00 [facility] Hep B, Adol or Pedi 2011-09-01 Completed [facility] of Dosage 00:00:00 [facility] Hep B, Adol or Pedi 2011-09-01 Completed [facility] of Dosage 00:00:00 [facility] Hep B, Adol or Pedi 2011-09-01 Completed [facility] of Dosage 00:00:00 [facility] Hep B, Adol or Pedi 2011-09-01 [...] 2011-03-17 Completed [facility]ive rs[facility] of Dosage 00:00:00 [facility] Hep B, Adol or Pedi 2011-03-17 Completed [facility] rsity of Dosage 00:00:00 [facility] Influenza Virus 2011-02-10 Completed [facility] Vaccine 00:00:00 [facility] Hep B, Adol or Pedi 2011-02-10 Completed [facility]ive rs[facility] of Dosage 00:00:00 [facility] Influenza Virus 2011-02-10 Completed [facility] Vaccine 00:00:00 [facility] Hep B, Adol or Pedi 2011-02-10 Completed [facility] of Dosage 00:00:00 [facility] Influenza Virus 2011-02-10 Completed [facility] of Vaccine 00:00:00 [facility] Hep B, Adol or Pedi 2011-02-10 Completed [facility] of Dosage 00:00:00 [facility] Influenza Virus 2011-02-10 Completed [facility] of Vaccine 00:00:00 [facility] Hep B, Adol or Pedi 2011-02-10 Completed [facility] of Dosage 00:00:00 [facility] Influenza Virus 2011-02-10 Completed [facility] of Vaccine 00:00:00 [facility] Hep B, Adol or Pedi 2011-02-10 Completed [facility] of Dosage 00:00:00 [facility] Influenza Virus 2011-02-10 Completed [facility] of Vaccine 00:00:00 [facility] Hep B, Adol or Pedi 2011-02-10 Completed [facility] of Dosage 00:00:00 [facility] Influenza Virus 2011-02-10 Completed [facility] of Vaccine 00:00:00 [facility] Hep B, Adol or Pedi 2011-02-10 Completed [facility] of Dosage 00:00:00 [facility] Influenza Virus 2011-02-10 Completed [facility] of Vaccine 00:00:00 [facility] Hep B, Adol or Pedi 2011-02-10 Completed [facility]ive [facility] of Dosage 00:00:00 [facility] Influenza Virus 2011-02-10 Completed [facility] of Vaccine 00:00:00 [facility] Hep B, Adol or Pedi 2011-02-10 Completed [facility] of Dosage 00:00:00 [facility] Influenza Virus 2011-02-10 Completed [facility] Vaccine 00:00:00 [facility] Hep B, Adol or Pedi 2011-02-10 Completed [facility] of Dosage 00:00:00 [facility] Influenza Virus 2011-02-10 Completed [facility] Vaccine 00:00:00 [facility] Hep B, Adol or Pedi 2011-02-10 Completed [facility] of Dosage 00:00:00 [facility] Influenza Virus 2011-02-10 Completed [facility] Vaccine 00:00:00 [facility] Hep B, Adol or Pedi 2011-02-10 Completed [facility] of Dosage 00:00:00 [facility] Influenza Virus 2011-02-10 Completed [facility] Vaccine 00:00:00 [facility] Hep B, Adol or Pedi 2011-02-10 Completed [facility] of Dosage 00:00:00 [facility] Influenza Virus 2011-02-10 Completed [facility] Vaccine 00:00:00 [facility] Hep B, Adol or Pedi 2011-02-10 Completed [facility] of Dosage 00:00:00 [facility] Influenza Virus 2011-02-10 Completed [facility] Vaccine 00:00:00 [facility] Hep B, Adol or Pedi 2011-02-10 Completed [facility] Dosage 00:00[facility]00 [facility] [facility] Influenza Virus 2011-02-10 Completed [facility] Vaccine 00:00:00 [facility] Hep B, Adol or Pedi 2011-02-10 Completed Unive rsity of Dosage 00:00:00 [facility] Influenza Virus 2011-02-10 Completed [facility] Vaccine 00:00:00 [facility] Hep B, Adol or Pedi 2011-02-10 Completed Unive rsity of Dosage 00:00:00 [facility] Influenza Virus 2011-02-10 Completed [facility]it [facility] of Vaccine 00:00:00 [facility] Hep B, Adol or Pedi 2011-02-10 Completed Unive rsity of Dosage 00:00:00 [facility] Influenza Virus 2011-02-10 Completed [facility]it [facility] of Vaccine 00:00:00 [facility] Hep B, Adol or Pedi 2011-02-10 Completed Unive rsity of Dosage 00:00:00 [facility] Influenza Virus 2011-02-10 Completed Universit [facility] of Vaccine 00:00:00 [facility] Hep B, Adol or Pedi 2011-02-10 Completed Unive rsity of Dosage 00:00:00 [facility] Influenza Virus 2011-02-10 Completed [facility] of Vaccine 00:00:00 [facility] Hep B, Adol or Pedi 2011-02-10 Completed Unive rsity of Dosage 00:00:00 [facility] Influenza Virus 2011-02-10 Completed Universit [facility] of Vaccine 00:00:00 [facility] Hep B, Adol or Pedi 2011-02-10 Completed Unive rsity of Dosage 00:00:00 [facility] PPD (TB) 2010-11-18 Completed University of 00:00:00 [facility] TDAP (ADACEL) 2010-11-18 Completed University of VACCINE 00:00:00 [facility] PPD (TB) 2010-11-18 Completed University of 00:00:00 [facility] TDAP (ADACEL) 2010-11-18 Completed University of VACCINE 00:00:00 [facility] PPD (TB) 2010-11-18 Completed University of 00:00:00 [facility] TDAP (ADACEL) 2010-11-18 Completed University of VACCINE 00:00:00 [facility] PPD (TB) 2010-11-18 Completed University of 00:00:00 [facility] TDAP (ADACEL) 2010-11-18 Completed University of VACCINE 00:00:00 [facility] PPD (TB) 2010-11-18 Completed University of 00:00:00 [facility] TDAP (ADACEL) 2010-11-18 Completed University of VACCINE 00:00:00 [facility] PPD (TB) 2010-11-18 Completed University of 00:00:00 [facility] TDAP (ADACEL) 2010-11-18 Completed University of VACCINE 00:00:00 [facility] PPD (TB) 2010-11-18 Completed University of 00:00:00 [facility] TDAP (ADACEL) 2010-11-18 Completed University of VACCINE 00:00:00 [facility] PPD (TB) 2010-11-18 Completed University of 00:00:00 [facility] TDAP (ADACEL) 2010-11-18 Completed University of VACCINE 00:00:00 [facility] PPD (TB) 2010-11-18 Completed University of 00:00:00 [facility] TDAP (ADACEL) 2010-11-18 Completed University of VACCINE 00:00:00 [facility] PPD (TB) 2010-11-18 Completed University of 00:00:00 [facility] TDAP (ADACEL) 2010-11-18 Completed University of VACCINE 00:00:00 [facility] PPD (TB) 2010-11-18 Completed University of 00:00:00 [facility] TDAP (ADACEL) 2010-11-18 Completed University of VACCINE 00:00:00 [facility] PPD (TB) 2010-11-18 Completed University of 00:00:00 [facility] TDAP (ADACEL) 2010-11-18 Completed University of VACCINE 00:00:00 [facility] PPD (TB) 2010-11-18 Completed University of 00:00:00 [facility] TDAP (ADACEL) 2010-11-18 Completed University of VACCINE 00:00:00 [facility] PPD (TB) 2010-11-18 Completed University of 00:00:00 [facility] TDAP (ADACEL) 2010-11-18 Completed University of VACCINE 00:00:00 [facility] PPD (TB) 2010-11-18 Completed University of 00:00:00 [facility] TDAP (ADACEL) 2010-11-18 Completed University of VACCINE 00:00:00 [facility] PPD (TB) 2010-11-18 Completed University of 00:00:00 [facility] TDAP (ADACEL) 2010-11-18 Completed University of VACCINE 00:00:00 [facility] PPD (TB) 2010-11-18 Completed University of 00:00:00 [facility] TDAP (ADACEL) 2010-11-18 Completed University of VACCINE 00:00:00 [facility] PPD (TB) 2010-11-18 Completed University of 00:00:00 [facility] TDAP (ADACEL) 2010-11-18 Completed University of VACCINE 00:00:00 [facility] PPD (TB) 2010-11-18 Completed University of 00:00:00 [facility] TDAP (ADACEL) 2010-11-18 Completed University of VACCINE 00:00:00 [facility] PPD (TB) 2010-11-18 Completed University of 00:00:00 [facility] TDAP (ADACEL) 2010-11-18 Completed University of VACCINE 00:00:00 [facility] PPD (TB) 2010-11-18 Completed University of 00:00:00 [facility] TDAP (ADACEL) 2010-11-18 Completed University of VACCINE 00:00:00 [facility] PPD (TB) 2010-11-18 Completed University of 00:00:00 [facility] TDAP (ADACEL) 2010-11-18 Completed University of VACCINE 00:00:00 [facility] HEPATITIS A 2004-03-02 Completed University of 00:00:00 [facility] HEPATITIS A 2004-03-02 Completed University of 00:00:00 [facility] HEPATITIS A 2004-03-02 Completed University of 00:00:00 [facility] HEPATITIS A 2004-03-02 Completed University of 00:00:00 [facility] HEPATITIS A 2004-03-02 Completed University of 00:00:00 [facility] HEPATITIS A 2004-03-02 Completed University of 00:00:00 [facility] HEPATITIS A 2004-03-02 Completed University of 00:00:00 [facility] HEPATITIS A 2004-03-02 Completed [facility] 00:00:00 [facility] HEPATITIS A 2004-03-02 Completed University of 00:00:00 [facility] HEPATITIS A 2004-03-02 Completed University of 00:00:00 [facility] HEPATITIS A 2004-03-02 Completed [facility] of 00:00:00 [facility] HEPATITIS A 2004-03-02 Completed [facility] of 00:00:00 [facility] HEPATITIS A 2004-03-02 Completed [facility] of 00:00:00 [facility] HEPATITIS A 2004-03-02 Completed [facility] of 00:00:00 [facility] HEPATITIS A 2004-03-02 Completed [facility] of 00:00:00 [facility] HEPATITIS A 2004-03-02 Completed [facility] of 00:00:00 [facility] HEPATITIS A 2004-03-02 Completed University of 00:00:00 [facility] HEPATITIS A 2004-03-02 Completed [facility] of 00:00:00 [facility] HEPATITIS A 2004-03-02 Completed University of 00:00:00 [facility] HEPATITIS A 2004-03-02 Completed University of 00:00:00 [facility] HEPATITIS A 2004-03-02 Completed [facility] of 00:00:00 [facility] HEPATITIS A 2004-03-02 Completed University of 00:00:00 [facility] HEPATITIS A 2003-08-01 Completed [facility] of 00:00:00 [facility] HEPATITIS A 2003-08-01 Completed [facility] of 00:00:00 [facility] HEPATITIS A 2003-08-01 Completed [facility] of 00:00:00 [facility] HEPATITIS A 2003-08-01 Completed [facility] of 00:00:00 [facility] HEPATITIS A 2003-08-01 Completed University of 00:00:00 [facility] HEPATITIS A 2003-08-01 Completed [facility] of 00:00:00 [facility] HEPATITIS A 2003-08-01 Completed [facility] of 00:00:00 [facility] HEPATITIS A 2003-08-01 Completed [facility] of 00:00:00 [facility] HEPATITIS A 2003-08-01 Completed [facility] of 00:00:00 [facility] HEPATITIS A 2003-08-01 Completed [facility] of 00:00:00 [facility] HEPATITIS A 2003-08-01 Completed [facility] of 00:00:00 [facility] HEPATITIS A 2003-08-01 Completed [facility] of 00:00:00 [facility] HEPATITIS A 2003-08-01 Completed [facility] 00:00:00 [facility] HEPATITIS A 2003-08-01 Completed University of 00:00:00 [facility] HEPATITIS A 2003-08-01 Completed University of 00:00:00 [facility] HEPATITIS A 2003-08-01 Completed University of 00:00:00 [facility] HEPATITIS A 2003-08-01 Completed University of 00:00:00 [facility] HEPATITIS A 2003-08-01 Completed University of 00:00:00 [facility] HEPATITIS A 2003-08-01 Completed University of 00:00:00 [facility] HEPATITIS A 2003-08-01 Completed University of 00:00:00 [facility] HEPATITIS A 2003-08-01 Completed University of 00:00:00 [facility] HEPATITIS A 2003-08-01 Completed University of 00:00:00 [facility] Pneumococcal 2001-10-04 Completed University o f Polysaccharide, 00:00:00 [place] [facility] PPSV23 (PNEUMOVAX) [facility] PPD (TB) 2001-10-04 Completed University of 00:00:00 [facility] Pneumococcal 2001-10-04 Completed [facility] o f Polysaccharide, 00:00:00 [place] [facility] PPSV23 (PNEUMOVAX) Branch PPD (TB) 2001-10-04 Completed [facility] of 00:00:00 [facility] Pneumococcal 2001-10-04 Completed University o f Polysaccharide, 00:00:00 [place] [facility] PPSV23 (PNEUMOVAX) Branch PPD (TB) 2001-10-04 Completed [facility] of 00:00:00 [facility] Pneumococcal 2001-10-04 Completed [facility] o f Polysaccharide, 00:00:00 [place] [facility] PPSV23 (PNEUMOVAX) Branch PPD (TB) 2001-10-04 Completed [facility] of 00:00:00 [facility] Pneumococcal 2001-10-04 Completed [facility] o f Polysaccharide, 00:00:00 [place] [facility] PPSV23 (PNEUMOVAX) Branch PPD (TB) 2001-10-04 Completed [facility] of 00:00:00 [facility] Pneumococcal 2001-10-04 Completed [facility] o f Polysaccharide, 00:00:00 [place] [facility] PPSV23 (PNEUMOVAX) Branch PPD (TB) 2001-10-04 Completed [facility] of 00:00:00 [facility] Pneumococcal 2001-10-04 Completed University o f Polysaccharide, 00:00:00 [place] [facility] PPSV23 (PNEUMOVAX) Branch PPD (TB) 2001-10-04 Completed [facility] of 00:00:00 [facility] Pneumococcal 2001-10-04 Completed [facility] o f Polysaccharide, 00:00:00 [place] [facility] PPSV23 (PNEUMOVAX) Branch PPD (TB) 2001-10-04 Completed [facility] of 00:00:00 [facility] Pneumococcal 2001-10-04 Completed [facility] o f Polysaccharide, 00:00:00 [place] [facility] PPSV23 (PNEUMOVAX) Branch PPD (TB) 2001-10-04 Completed [facility] of 00:00:00 [facility] Pneumococcal 2001-10-04 Completed [facility] o f Polysaccharide, 00:00:00 [place] [facility] PPSV23 (PNEUMOVAX) Branch PPD (TB) 2001-10-04 Completed [facility] of 00:00:00 [facility] Pneumococcal 2001-10-04 Completed [facility] o f Polysaccharide, 00:00:00 [place] [facility] PPSV23 (PNEUMOVAX) [facility] PPD (TB) 2001-10-04 Completed [facility] of 00:00:00 [facility] Pneumococcal 2001-10-04 Completed [facility] o f Polysaccharide, 00:00:00 [place] [facility] PPSV23 (PNEUMOVAX) Branch PPD (TB) 2001-10-04 Completed [facility] of 00:00:00 [facility] Pneumococcal 2001-10-04 Completed University o f Polysaccharide, 00:00:00 [place] [facility] PPSV23 (PNEUMOVAX) Branch PPD (TB) 2001-10-04 Completed [facility] of 00:00:00 [facility] Pneumococcal 2001-10-04 Completed University o f Polysaccharide, 00:00:00 [place] [facility] PPSV23 (PNEUMOVAX) Branch PPD (TB) 2001-10-04 Completed [facility] of 00:00:00 [facility] Pneumococcal 2001-10-04 Completed University o f Polysaccharide, 00:00:00 [place] [facility] PPSV23 (PNEUMOVAX) Branch PPD (TB) 2001-10-04 Completed [facility] of 00:00:00 [facility] Pneumococcal 2001-10-04 Completed University o f Polysaccharide, 00:00:00 [place] [facility] PPSV23 (PNEUMOVAX) Branch PPD (TB) 2001-10-04 Completed [facility] of 00:00:00 [facility] Pneumococcal 2001-10-04 Completed University o f Polysaccharide, 00:00:00 [place] [facility] PPSV23 (PNEUMOVAX) Branch PPD (TB) 2001-10-04 Completed [facility] of 00:00:00 [facility] Pneumococcal 2001-10-04 Completed University o f Polysaccharide, 00:00:00 [place] [facility] PPSV23 (PNEUMOVAX) Branch PPD (TB) 2001-10-04 Completed [facility] of 00:00:00 [facility] Pneumococcal 2001-10-04 Completed University o f Polysaccharide, 00:00:00 [place] [facility] PPSV23 (PNEUMOVAX) Branch PPD (TB) 2001-10-04 Completed [facility] of 00:00:00 [facility] Pneumococcal 2001-10-04 Completed University o f Polysaccharide, 00:00:00 [place] [facility] PPSV23 (PNEUMOVAX) Branch PPD (TB) 2001-10-04 Completed [facility] of 00:00:00 [facility] Pneumococcal 2001-10-04 Completed University o f Polysaccharide, 00:00:00 [place] [facility] PPSV23 (PNEUMOVAX) Branch PPD (TB) 2001-10-04 Completed [facility] of 00:00:00 [facility] Pneumococcal 2001-10-04 Completed [place] o f Polysaccharide, 00:00:00 [place] [facility] PPSV23 (PNEUMOVAX) Branch PPD (TB) 2001-10-04 Completed [facility] of 00:00:00 [facility] Vital Signs Vital Name Observation Time Observation Value Comments Source Systolic blood 2022-05-10 22:00:00 159 mm[Hg] Univer sity of pressure [facility] Diastolic blood 2022-05-10 22:00:00 87 mm[Hg] Unive rsity of [facility] Heart rate 2022-05-10 22:00:00 56 /min [facility] Body temperature 2022-05-10 22:00:00 36.61 Amina [facility] Res[facility] rate 2022-05-10 22:00:00 17 /min [facility] acute hospital Oxygen saturation in 2022-05-10 22:00:00 98 /min [facility] Arterial blood by [facility] Pulse oximetry Branch Body weight 2022-05-10 16:29:00 78.926 kg [facility] BMI 2022-05-10 16:29:00 29.87 kg/m2 [facility] Systolic blood 2022-05-08 22:30:00 168 mm[Hg] Univer sity of pressure [facility] Diastolic blood 2022-05-08 22:30:00 85 mm[Hg] Unive rsity of pressure [facility] Heart rate 2022-05-08 22:30:00 68 /min [facility] Oxygen saturation in 2022-05-08 22:30:00 100 /min University of Arterial blood by [facility] Pulse oximetry Branch Body temperature 2022-05-08 22:22:00 35.89 Amina Univ ersity of [facility] Respiratory rate 2022-05-08 22:22:00 14 /min Univ ersity of [facility] Body weight 2022-05-08 22:22:00 78.926 kg [facility] BMI 2022-05-08 22:22:00 29.87 kg/m2 [facility] Systolic blood 2022-05-07 00:00:00 149 mm[Hg] Univer sity of pressure [facility] Diastolic blood 2022-05-07 00:00:00 132 mm[Hg] Unive rsity of pressure [facility] Heart rate 2022-05-07 00:00:00 59 /min [facility] Respiratory rate 2022-05-07 00:00:00 14 /min Univ ersity of [facility] Oxygen saturation in 2022-05-07 00:00:00 99 /min University of Arterial blood by [facility] Pulse oximetry Branch Body temperature 2022-05-06 20:12:00 36.5 Amina Univ ersity of [facility] Body height 2022-05-06 20:12:00 162.6 cm [facility] Body weight 2022-05-06 20:12:00 78.926 kg [facility] BMI 2022-05-06 20:12:00 29.87 kg/m2 [facility] Systolic blood 2022-04-22 19:50:00 156 mm[Hg] Univer sity of pressure [facility] Diastolic blood 2022-04-22 19:50:00 89 mm[Hg] Unive rsity of pressure [facility] Heart rate 2022-04-22 19:50:00 69 /min [facility] Body temperature 2022-04-22 19:50:00 36.67 Amina Univ ersity of [facility] Respiratory rate 2022-04-22 19:50:00 17 /min Univ ersity of [facility] Body height 2022-04-22 19:50:00 162.6 cm [facility] Body weight 2022-04-22 19:50:00 80.74 kg [facility] BMI 2022-04-22 19:50:00 30.55 kg/m2 [facility] Oxygen saturation in 2022-04-22 19:50:00 96 /min University of Arterial blood by [facility] Pulse oximetry Branch Systolic blood 2022-03-05 15:23:00 167 mm[Hg] Univer sity of pressure [facility] Diastolic blood 2022-03-05 15:23:00 105 mm[Hg] Unive rsity of pressure [facility] Heart rate 2022-03-05 15:23:00 49 /min [facility] Body temperature 2022-03-05 15:18:00 36.67 Amina Univ ersity of [facility] Respiratory rate 2022-03-05 15:18:00 18 /min Univ ersity of [facility] Body height 2022-03-05 15:18:00 162.6 cm [facility] Body weight 2022-03-05 15:18:00 74.707 kg [facility] BMI 2022-03-05 15:18:00 28.27 kg/m2 [facility] Systolic blood 2022-02-16 21:41:00 169 mm[Hg] Univer sity of pressure [facility] Diastolic blood 2022-02-16 21:41:00 86 mm[Hg] Unive rsity of pressure [facility] Heart rate 2022-02-16 21:41:00 51 /min [facility] Body temperature 2022-02-16 21:41:00 36.56 Amina Univ ers[facility] of [facility] Respiratory rate 2022-02-16 21:41:00 17 /min Univ ersity of [facility] Oxygen saturation in 2022-02-16 21:41:00 98 /min University of Arterial blood by [place] [employer] [facility] Pulse oximetry Branch Body height 2022-02-11 16:02:00 162.6 cm [facility] Body weight 2022-02-11 16:02:00 79.379 kg [facility] BMI 2022-02-11 16:02:00 30.04 kg/m2 [facility] Systolic blood 2021-11-20 13:47:00 165 mm[Hg] Univer sity of pressure [facility] Diastolic blood 2021-11-20 13:47:00 83 mm[Hg] Unive rsity of pressure [facility] Heart rate 2021-11-20 13:47:00 58 /min [facility] Body temperature 2021-11-20 13:42:00 36.39 Amina Univ ersity of [facility] Respiratory rate 2021-11-20 13:42:00 16 /min Univ ersity of [facility] Body height 2021-11-20 13:42:00 162.6 cm [facility] [place] [facility] [place] Body weight 2021-11-20 13:42:00 84.369 kg [facility] BMI 2021-11-20 13:42:00 31.93 kg/m2 [facility] Systolic blood 2021-07-14 15:18:00 142 [...] 22:00:00 159 mm[Hg] Univer sity of pressure [facility] Diastolic blood 2022-05-10 22:00:00 87 mm[Hg] Unive rsity of pressure [facility] Heart rate 2022-05-10 22:00:00 56 /min [facility] [place] Body temperature 2022-05-10 22:00:00 36.61 Amina Univ ersity of [facility] Respiratory rate 2022-05-10 22:00:00 17 /min Univ ersity of [facility] Oxygen saturation in 2022-05-10 22:00:00 98 /min University of Arterial blood by [facility] Pulse oximetry Branch Body weight 2022-05-10 16:29:00 78.926 kg Universi ty of [facility] BMI 2022-05-10 16:29:00 29.87 kg/m2 Universi ty of [facility] Body height 2022-05-06 20:12:00 162.6 cm Universi ty of [facility] Systolic blood 2022-03-05 15:23:00 167 mm[Hg] Univer sity of pressure [facility] Diastolic blood 2022-03-05 15:23:00 105 mm[Hg] Unive rsity of pressure [facility] Heart rate 2022-03-05 15:23:00 49 /min Universi ty of [facility] Body temperature 2022-03-05 15:18:00 36.67 Amina [facility] Respiratory rate 2022-03-05 15:18:00 18 /min Univ ersity of [facility] Body height 2022-03-05 15:18:00 162.6 cm [facility] [place] [facility] [place] Body weight 2022-03-05 15:18:00 74.707 kg Universi ty of [facility] BMI 2022-03-05 15:18:00 28.27 kg/m2 Universi ty of [facility] Oxygen saturation in 2022-02-16 21:41:00 98 /min University of Arterial blood by [facility] Pulse oximetry Branch Systolic blood 2020-12-08 15:48:00 125 mm[Hg] Method [facility] pressure Diastolic blood 2020-12-08 15:48:00 76 mm[Hg] [facility] pressure Heart rate 2020-12-08 15:48:00 64 /min [facility] Body temperature 2020-12-08 15:48:00 36.61 Amina [facility] Respiratory rate 2020-12-08 15:48:00 17 /min [facility] Body height 2020-12-08 15:48:00 162.6 cm [facility] Body weight 2020-12-08 15:48:00 98.884 kg [facility] BMI 2020-12-08 15:48:00 37.42 kg/m2 [facility] Oxygen saturation in 2020-12-08 15:48:00 97 /min [facility] Arterial blood by Pulse oximetry Respitory Rate 2020-08-30 13:00:00 [facility] Systolic (mm Hg) 2020-08-30 13:00:00 [place] [facility] [place] Diastolic (mm Hg) 2020-08-30 13:00:00 Mem orial [facility] Systolic (mm Hg) 2020-08-30 11:00:00 [facility] [place] Diastolic (mm Hg) 2020-08-30 11:00:00 Mem [facility] [place] Temperature Oral (F) 2020-08-30 11:00:00 98.4 F [facility] Respitory Rate 2020-08-30 11:00:00 [facility] [place] Respitory Rate 2020-08-30 10:00:00 [facility] [place] Systolic (mm Hg) 2020-08-30 10:00:00 [place] [facility] [place] Diastolic (mm Hg) 2020-08-30 10:00:00 Mem orial [facility] Temperature Oral (F) 2020-08-30 00:00:00 96.9 F [facility] Temperature Oral (F) 2020-08-29 11:26:00 [facility] 2020-08-29 10:30:00 162.56 cm [facility] Weight 2020-08-29 10:30:00 [facility] BMI Calculated 2020-08-29 10:30:00 [place] Procedures Procedure Date / Time Performing Clinician Source Performed URINALYSIS 2022-05-10 19:36:00 [facility] TROPONIN I 2022-05-10 18:34:00 [facility] COMP. METABOLIC PANEL 2022-05-10 18:34:00 [facility] ([id number]) [facility] CBC WITH DIFF 2022-05-10 18:34:00 Home Matthews [facility] XR CHEST 2 VW 2022-05-10 17:24:58 Home Matthews [facility] CONSENT/REFUSAL FOR 2022-05-10 16:26:23 Doctor Unassigned, [facility] DIAGNOSIS AND TREATMENT [place] [facility] CONSENT/REFUSAL FOR 2022-05-10 16:26:09 Doctor Unasseunice, [facility] DIAGNOSIS AND TREATMENT [place] [facility] URINALYSIS 2022-05-08 22:43:00 [facility] XR CHEST 2 VW 2022-05-06 22:56:53 Anette Olea [facility] COMP. METABOLIC PANEL 2022-05-06 22:14:00 Anette Olea [facility] ([id number]) Medical Branch CBC WITH DIFF 2022-05-06 22:14:00 Anette Olea [facility] COVID-19 (ID NOW RAPID 2022-05-06 22:14:00 Anette Olea [facility] TESTING) Medical Branch BASIC METABOLIC PANEL (NA, 2022-04-22 21:23:00 Paulette Gray [facility] K, CL, CO2, GLUCOSE, BUN, Medica l Branch CREATININE, CA) CBC WITH DIFF 2022-04-22 21:23:00 Paulette Gray [facility] CONSENT/REFUSAL FOR 2022-04-22 19:45:46 Doctor Unasimone, [facility] DIAGNOSIS AND TREATMENT [place] [facility] SARS-COV-2 COVID-19 2022-03-05 16:09:27 [facility] DIMITRIS-SUCROSE VACCINE [address] [place] [address] YRS+, BIVALENT 0.3ML, IM, (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) FLU 2022-03-05 16:09:27 [facility] VACC(),65+YR,0.5 Medica l Branch ML,IM,ADJUVANTED,QUAD(FLUA D) FLU 2022-03-05 16:09:27 [facility] VACC(),65+YR,0.5 Medica l Branch ML,IM,ADJUVANTED,QUAD(FLUA D) SARS-COV-2 COVID-19 2022-03-05 16:09:27 [facility] DIMITRIS-SUCROSE VACCINE [address] [place] [address] YRS+, BIVALENT 0.3ML, IM, (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) MAGNESIUM 2022-02-15 09:41:00 Sofia Garcia [facility] BASIC METABOLIC PANEL (NA, 2022-02-15 09:41:[address] [facility] K, CL, CO2, GLUCOSE, BUN, Medica l Branch CREATININE, CA) CBC WITH DIFF 2022-02-15 09:41:00 Sofia Garcia [facility] N-TERMINAL PRO-BNP 2022-02-15 09:41:00 Sofia Garcia [facility] CBC WITH DIFF 2022-02-15 09:41:00 Radha [facility] BASIC METABOLIC PANEL (NA, 2022-02-15 09:41:[address] [facility] K, CL, CO2, GLUCOSE, BUN, Medica l Branch CREATININE, CA) MAGNESIUM 2022-02-15 09:41:00 Radha [facility] N-TERMINAL PRO-BNP 2022-02-15 09:41:00 Sofia Garcia [facility] BASIC METABOLIC PANEL (NA, 2022-02-13 09:40:[address] [facility] K, CL, CO2, GLUCOSE, BUN, Medica l Branch CREATININE, CA) CBC WITH DIFF 2022-02-13 09:40:00 Radha [facility] BASIC METABOLIC PANEL (NA, 2022-02-13 09:40:[address] [facility] K, CL, CO2, GLUCOSE, BUN, Medica l Branch CREATININE, CA) CBC WITH DIFF 2022-02-13 09:40:00 Radha [facility] TROPONIN I 2022-02-11 23:41:00 Radha [facility] N-TERMINAL PRO-BNP 2022-02-11 23:41:00 Radha Sofia [facility] TROPONIN I 2022-02-11 23:41:00 Radha Sofia [facility] N-TERMINAL PRO-BNP 2022-02-11 23:41:00 Sofia Garcia [facility] HB ECG ROUTINE & RHYTHM 2022-02-11 22:15:36 [facility] 2022-02-11 21:26:50 [facility] (TTE) 2022-02-11 21:26:50 [facility] 2022-02-11 07:45:43 Reilly Means [facility] CONTRAST [facility] CT ABDOMEN PELVIS W 2022-02-11 07:45:43 Reilly Means [facility] RAPID INFLUENZA A/B 2022-02-11 06:54:00 Reilly Means [facility] RAPID INFLUENZA A/B 2022-02-11 06:54:00 Reilly Means [facility] URINALYSIS 2022-02-11 06:45:00 Reilly Means [facility] URINE CULTURE 2022-02-11 06:45:00 Reilly Means [facility] URINALYSIS 2022-02-11 06:45:00 Reilly Means [facility] URINE CULTURE 2022-02-11 06:45:00 Reilly Means [facility] HB ECG ROUTINE & RHYTHM 2022-02-11 05:22:08 Reilly Means [facility] HB ECG ROUTINE & RHYTHM 2022-02-11 05:22:08 Reilly Means [facility] BLOOD CULTURE SCREEN 2022-02-11 04:58:00 Reilly Means [facility] TROPONIN I 2022-02-11 04:58:00 Reilly Means [facility] COMP. METABOLIC PANEL 2022-02-11 04:58:00 Reilly Means [facility] ([id number]) [facility] CBC WITH DIFF 2022-02-11 04:58:00 Reilly Means [facility] PROTHROMBIN TIME / INR 2022-02-11 04:58:00 Reilly Means [facility] ACTIVATED PARTIAL THRMPLAS 2022-02-11 04:58:00 Reilly Means [facility] N-TERMINAL PRO-BNP 2022-02-11 04:58:00 [facility] LACTIC ACID WHOLE BLOOD 2022-02-11 04:58:00 Reilly Means [facility] COVID-19 (ID NOW RAPID 2022-02-11 04:58:00 Reilly Means [facility] TESTING) Medical Branch LAB ONLY COVID 2022-02-11 04:58:00 Reilly Means [facility] CBC WITH DIFF 2022-02-11 04:58:00 Reilly Means [facility] ACTIVATED PARTIAL THRMPLAS 2022-02-11 04:58:00 Reilly Means [facility] PROTHROMBIN TIME / INR 2022-02-11 04:58:00 Reilly Means [facility] COVID-19 (ID NOW RAPID 2022-02-11 04:58:00 Reilly Means [facility] TESTING) Medical Branch COMP. METABOLIC PANEL 2022-02-11 04:58:00 Reilly Means [facility] ([id number]) Medical Branch TROPONIN I 2022-02-11 04:58:00 Reilly Means [facility] N-TERMINAL PRO-BNP 2022-02-11 04:58:00 [facility] BLOOD CULTURE SCREEN 2022-02-11 04:58:00 Reilly Means [facility] LACTIC ACID WHOLE BLOOD 2022-02-11 04:58:00 Reilly Means [facility] LAB ONLY COVID 2022-02-11 04:58:00 Reilly Means [facility] XR CHEST 1 VW 2022-02-11 04:27:42 Reilly Means [facility] XR CHEST 1 VW 2022-02-11 04:27:42 Reilly Means [facility] HOSPITAL ADMISSION 2022-02-10 05:01:00 Doctor Unassigned, [facility] HOSPITAL ADMISSION 2022-02-10 05:01:00 Doctor Unassigned, [facility] ECG 12-LEAD 2021-07-14 15:14:00 Elan Lira [facility] [id number] 2021-06-17 00:00:00 RIKY Freedman [facility] GASTROINTESTINAL PANEL 2020-12-08 [facility] ABDOMEN 1 VW 2020-12-08 18:06:32 Eliseo [facility]ce [facility]ital [place] < 1 HOUR 2020-09-05 22:39:00 Eliseo Arce [facility]ital SURGICAL PATHOLOGY REQUEST 2020-09-05 21:54[facility]00 [facility] CHEST 1 VW PORTABLE 2020-09-05 19:55:00 [facility] DISCHARGE PATIENT 2020-09-05 17:27:55 Lucas Harris [facility] NM AN ELECTIVE 2020-09-05 16:47:23 Kirit Flood V. [facility] ENDOTRACHEAL AIRWAY EGD, INTRAOPERATIVE 2020-09-05 16:27[facility]00 [facility] 2020-09-05 15:04[facility] TIME (PTT) M. PROTHROMBIN TIME WITH INR 2020-09-05 15:04:00 Mindy Maharaj [facility] M. Plan of Care Planned Activity Planned Date Details Comments Source Future Scheduled 2022-12-13 Screening for [facility] Test 16:46:16 malignant neoplasm of colon (procedure) [code = 734711921] Future Scheduled 2022-12-13 Screening for [facility] Test 16:46:16 malignant neoplasm of colon (procedure) [code = 213335145] Future Scheduled 2022-12-13 Screening for [facility] Test 16:46:16 malignant neoplasm of colon (procedure) [code = 538023266] Future Scheduled 2022-12-13 SHINGLES VACCINES (1 Met [facility] Test 16:46:16 of 2) [code = SHINGLES VACCINES (1 of 2)] Future Scheduled 2022-12-13 BREAST CANCER [facility] Test 16:46:16 SCREENING [code = BREAST CANCER SCREENING] Future Scheduled 2022-12-13 Screening for [facility] Test 16:46:16 malignant neoplasm of colon (procedure) [code = 928791075] Future Scheduled 2022-12-13 Screening for [facility] Test 16:46:16 malignant neoplasm of colon (procedure) [code = 629132210] Future Scheduled 2022-12-13 HEPATITIS B VACCINES Met [facility] Test 16:46:16 (1 of 3 - Risk 3-dose series) [code = HEPATITIS B VACCINES (1 of 3 - Risk 3-dose series)] Future Scheduled 2022-12-13 COVID-19 VACCINE (3 - [facility] Test 16:46:16 Pfizer series) [code = COVID-19 VACCINE (3 - Pfizer series)] Future Scheduled 2022-12-13 65+ [facility]16 VACCINE (4 - PPSV23 if available, else PCV20) [code = 65+ PNEUMOCOCCAL VACCINE (4 - PPSV23 if available, else PCV20)] Future Scheduled 2022-12-13 INFLUENZA VACCINE Method [facility] Test 16:46:16 [code = INFLUENZA VACCINE] Future Scheduled 2022-12-13 Screening for [facility] Test 16:46:16 malignant neoplasm of colon (procedure) [code = 731523051] Future Scheduled 2022-12-13 Screening for [facility] Test 16:46:16 malignant neoplasm of colon (procedure) [code = 964606735] Future Scheduled 2022-12-13 Screening for [facility] Test 16:46:16 malignant neoplasm of colon (procedure) [code = 870537131] Future Scheduled 2022-12-13 SHINGLES VACCINES (1 Met [facility] Test 16:46:16 of 2) [code = SHINGLES VACCINES (1 of 2)] Future Scheduled 2022-12-13 BREAST CANCER [facility] Test 16:46:16 SCREENING [code = BREAST CANCER SCREENING] Future Scheduled 2022-12-13 Screening for [facility] Test 16:46:16 malignant neoplasm of colon (procedure) [code = 275094687] Future Scheduled 2022-12-13 Screening for [facility] Test 16:46:16 malignant neoplasm of colon (procedure) [code = 583048161] Future Scheduled 2022-12-13 HEPATITIS B VACCINES Met [facility] Test 16:46:16 (1 of 3 - Risk 3-dose series) [code = HEPATITIS B VACCINES (1 of 3 - Risk 3-dose series)] Future Scheduled 2022-12-13 COVID-19 VACCINE (3 - [facility] Test 16:46:16 Pfizer series) [code = COVID-19 VACCINE (3 - Pfizer series)] Future Scheduled 2022-12-13 65+ PNEUMOCOCCAL [facility] Test 16:46:16 VACCINE (4 - PPSV23 if available, else PCV20) [code = 65+ PNEUMOCOCCAL VACCINE (4 - PPSV23 if available, else PCV20)] Future Scheduled 2022-12-13 INFLUENZA VACCINE Method [facility] Test 16:46:16 [code = INFLUENZA VACCINE] Future Scheduled 2022-11-11 Screening for [facility] Test 09:27:47 malignant neoplasm of colon (procedure) [code = 328013429] Future Scheduled 2022-11-11 Screening for [facility] Test 09:27:47 malignant neoplasm of colon (procedure) [code = 279242989] Future Scheduled 2022-11-11 Screening for [facility] Test 09:27:47 malignant neoplasm of colon (procedure) [code = 331839521] Future Scheduled 2022-11-11 SHINGLES VACCINES (1 Met [facility] Test 09:27:47 of 2) [code = SHINGLES VACCINES (1 of 2)] Future Scheduled 2022-11-11 BREAST CANCER [facility] Test 09:27:47 SCREENING [code = BREAST CANCER SCREENING] Future Scheduled 2022-11-11 Screening for [facility] Test 09:27:47 malignant neoplasm of colon (procedure) [code = 927159069] Future Scheduled 2022-11-11 Screening for [facility] Test 09:27:47 malignant neoplasm of colon (procedure) [code = 816102853] Future Scheduled 2022-11-11 HEPATITIS B VACCINES Met [facility] Test 09:27:47 (1 of 3 - Risk 3-dose series) [code = HEPATITIS B VACCINES (1 of 3 - Risk 3-dose series)] Future Scheduled 2022-11-11 COVID-19 VACCINE (3 - [facility] Test 09:27:47 Pfizer series) [code = COVID-19 VACCINE (3 - Pfizer series)] Future Scheduled 2022-11-11 65+ PNEUMOCOCCAL [facility] Test 09:27:47 VACCINE (4 - PPSV23 if available, else PCV20) [code = 65+ PNEUMOCOCCAL VACCINE (4 - PPSV23 if available, else PCV20)] Future Scheduled 2022-11-11 [facility]:27:47 [code = INFLUENZA VACCINE] Future Scheduled 2022-11-11 [facility] Test 09:27:47 malignant neoplasm of colon (procedure) [code = 181735918] Future Scheduled 2022-11-11 [facility] Test 09:27:47 malignant neoplasm of colon (procedure) [code = 572724469] Future Scheduled 2022-11-11 [facility] Test 09:27:47 malignant neoplasm of colon (procedure) [code = 941225509] Future Scheduled 2022-11-11 SHINGLES VACCINES (1 Met [facility] Test 09:27:47 of 2) [code = SHINGLES VACCINES (1 of 2)] Future Scheduled 2022-11-11 BREAST CANCER [facility] Test 09:27:47 SCREENING [code = BREAST CANCER SCREENING] Future Scheduled 2022-11-11 [facility] Test 09:27:47 malignant neoplasm of colon (procedure) [code = 696002363] Future Scheduled 2022-11-11 [facility] Test 09:27:47 malignant neoplasm of colon (procedure) [code = 993521605] Future Scheduled 2022-11-11 HEPATITIS B VACCINES Met [facility] Test 09:27:47 (1 of 3 - Risk 3-dose series) [code = HEPATITIS B VACCINES (1 of 3 - Risk 3-dose series)] Future Scheduled 2022-11-11 COVID-19 VACCINE (3 - [facility] Test 09:27:47 Pfizer series) [code = COVID-19 VACCINE (3 - Pfizer series)] Future Scheduled 2022-11-11 65+ [facility] 09:27:47 VACCINE (4 - PPSV23 if available, else PCV20) [code = 65+ PNEUMOCOCCAL VACCINE (4 - PPSV23 if available, else PCV20)] Future Scheduled 2022-11-11 INFLUENZA [facility]ACC[facility] 09:27:47 [code = INFLUENZA VACCINE] Future Scheduled 2022-11-11 [facility] Test 09:27:47 malignant neoplasm of colon (procedure) [code = 969218632] Future Scheduled 2022-11-11 [facility] Test 09:27:47 malignant neoplasm of colon (procedure) [code = 570312962] Future Scheduled 2022-11-11 Screening for [facility] Test 09:27:47 malignant neoplasm of colon (procedure) [code = 937661966] Future Scheduled 2022-11-11 SHINGLES VACCINES (1 Met [facility] Test 09:27:47 of 2) [code = SHINGLES VACCINES (1 of 2)] Future Scheduled 2022-11-11 BREAST CANCER [facility] Test 09:27:47 SCREENING [code = BREAST CANCER SCREENING] Future Scheduled 2022-11-11 Screening for [facility] Test 09:27:47 malignant neoplasm of colon (procedure) [code = 338596532] Future Scheduled 2022-11-11 Screening for [facility] Test 09:27:47 malignant neoplasm of colon (procedure) [code = 512938876] Future Scheduled 2022-11-11 HEPATITIS B VACCINES Met [facility] Test 09:27:47 (1 of 3 - Risk 3-dose series) [code = HEPATITIS B VACCINES (1 of 3 - Risk 3-dose series)] Future Scheduled 2022-11-11 COVID-19 VACCINE (3 - [facility] Test 09:27:47 Pfizer series) [code = COVID-19 VACCINE (3 - Pfizer series)] Future Scheduled 2022-11-11 65+ PNEUMOCOCCAL [facility] Test 09:27:47 VACCINE (4 - PPSV23 if available, else PCV20) [code = 65+ PNEUMOCOCCAL VACCINE (4 - PPSV23 if available, else PCV20)] Future Scheduled 2022-11-11 INFLUENZA VACCINE Method [facility] Test 09:27:47 [code = INFLUENZA VACCINE] Future Scheduled 2022-10-27 Screening for [facility] Test 22:40:19 malignant neoplasm of colon (procedure) [code = 199030279] Future Scheduled 2022-10-27 Screening for [facility] Test 22:40:19 malignant neoplasm of colon (procedure) [code = 618037861] Future Scheduled 2022-10-27 Screening for [facility] Test 22:40:19 malignant neoplasm of colon (procedure) [code = 053011667] Future Scheduled 2022-10-27 SHINGLES VACCINES (1 Met [facility] Test 22:40:19 of 2) [code = SHINGLES VACCINES (1 of 2)] Future Scheduled 2022-10-27 BREAST CANCER [facility] Test 22:40:19 SCREENING [code = BREAST CANCER SCREENING] Future Scheduled 2022-10-27 Screening for [facility] Test 22:40:19 malignant neoplasm of colon (procedure) [code = 236384011] Future Scheduled 2022-10-27 Screening for [facility] Test 22:40:19 malignant neoplasm of colon (procedure) [code = 651824978] Future Scheduled 2022-10-27 HEPATITIS B VACCINES Met [facility] Test 22:40:19 (1 of 3 - Risk 3-dose series) [code = HEPATITIS B VACCINES (1 of 3 - Risk 3-dose series)] Future Scheduled 2022-10-27 COVID-19 VACCINE (3 - [facility] Test 22:40:19 Pfizer series) [code = COVID-19 VACCINE (3 - Pfizer series)] Future Scheduled 2022-10-27 65+ PNEUMOCOCCAL [facility] Test 22:40:19 VACCINE (4 - PPSV23 if available, else PCV20) [code = 65+ PNEUMOCOCCAL VACCINE (4 - PPSV23 if available, else PCV20)] Future Scheduled 2022-10-27 INFLUENZA VACCINE Method [facility] Test 22:40:19 [code = INFLUENZA VACCINE] Future Scheduled 2022-10-27 Screening for [facility] Test 22:40:19 malignant neoplasm of colon (procedure) [code = 699280248] Future Scheduled 2022-10-27 Screening for [facility] Test 22:40:19 malignant neoplasm of colon (procedure) [code = 645962809] Future Scheduled 2022-10-27 Screening for [facility] Test 22:40:19 malignant neoplasm of colon (procedure) [code = 674891169] Future Scheduled 2022-10-27 SHINGLES VACCINES (1 Met [facility] Test 22:40:19 of 2) [code = SHINGLES VACCINES (1 of 2)] Future Scheduled 2022-10-27 BREAST CANCER [facility] Test 22:40:19 SCREENING [code = BREAST CANCER SCREENING] Future Scheduled 2022-10-27 Screening for [facility] Test 22:40:19 malignant neoplasm of colon (procedure) [code = 888326173] Future Scheduled 2022-10-27 Screening for [facility] Test 22:40:19 malignant neoplasm of colon (procedure) [code = 967567933] Future Scheduled 2022-10-27 HEPATITIS B VACCINES Met [facility] Test 22:40:19 (1 of 3 - Risk 3-dose series) [code = HEPATITIS B VACCINES (1 of 3 - Risk 3-dose series)] Future Scheduled 2022-10-27 COVID-19 VACCINE (3 - [facility] Test 22:40:19 Pfizer series) [code = COVID-19 VACCINE (3 - Pfizer series)] Future Scheduled 2022-10-27 65+ PNEUMOCOCCAL [facility] Test 22:40:19 VACCINE (4 - PPSV23 if available, else PCV20) [code = 65+ PNEUMOCOCCAL VACCINE (4 - PPSV23 if available, else PCV20)] Future Scheduled 2022-10-27 INFLUENZA VACCINE Method [facility] Test 22:40:19 [code = INFLUENZA VACCINE] Future Scheduled 2022-09-10 SHINGLES VACCINES (1 Met [facility] Test 15:06:53 of 2) [code = SHINGLES VACCINES (1 of 2)] Future Scheduled 2022-09-10 BREAST CANCER [facility] Test 15:06:53 SCREENING [code = BREAST CANCER SCREENING] Future Scheduled 2022-09-10 COLONOSCOPY SCREENING [facility] Test 15:06:53 [code = COLONOSCOPY SCREENING] Future Scheduled 2022-09-10 HEPATITIS B VACCINES Met [facility] Test 15:06:53 (1 of 3 - Risk 3-dose series) [code = HEPATITIS B VACCINES (1 of 3 - Risk 3-dose series)] Future Scheduled 2022-09-10 COVID-19 VACCINE (3 - [facility] Test 15:06:53 Booster for Pfizer series) [code = COVID-19 VACCINE (3 - Booster for Pfizer series)] Future Scheduled 2022-09-10 65+ [facility] VACCINE (4 - PPSV23 if available, else PCV20) [code = 65+ PNEUMOCOCCAL VACCINE (4 - PPSV23 if available, else PCV20)] Future Scheduled 2022-09-10 INFLUENZA VACCINE Method [facility] Test 15:06:53 [code = INFLUENZA VACCINE] Future Scheduled 2022-09-10 SHINGLES VACCINES (1 Met [facility] Test 15:06:53 of 2) [code = SHINGLES VACCINES (1 of 2)] Future Scheduled 2022-09-10 BREAST CANCER [facility] Test 15:06:53 SCREENING [code = BREAST CANCER SCREENING] Future Scheduled 2022-09-10 COLONOSCOPY SCREENING [facility] Test 15:06:53 [code = COLONOSCOPY SCREENING] Future Scheduled 2022-09-10 HEPATITIS B VACCINES Met [facility] Test 15:06:53 (1 of 3 - Risk 3-dose series) [code = HEPATITIS B VACCINES (1 of 3 - Risk 3-dose series)] Future Scheduled 2022-09-10 COVID-19 VACCINE (3 - [facility] Test 15:06:53 Booster for Pfizer series) [code = COVID-19 VACCINE (3 - Booster for Pfizer series)] Future Scheduled 2022-09-10 65+ PNEUMOCOCCAL [facility] Test 15:06:53 VACCINE (4 - PPSV23 if available, else PCV20) [code = 65+ PNEUMOCOCCAL VACCINE (4 - PPSV23 if available, else PCV20)] Future Scheduled 2022-09-10 INFLUENZA VACCINE Method [facility] Test 15:06:53 [code = INFLUENZA VACCINE] Future Scheduled 2022-09-10 SHINGLES VACCINES (1 Met [facility] Test 15:06:53 of 2) [code = SHINGLES VACCINES (1 of 2)] Future Scheduled 2022-09-10 BREAST CANCER [facility] Test 15:06:53 SCREENING [code = BREAST CANCER SCREENING] Future Scheduled 2022-09-10 COLONOSCOPY SCREENING [facility] Test 15:06:53 [code = COLONOSCOPY SCREENING] Future Scheduled 2022-09-10 HEPATITIS B VACCINES Met [facility] Test 15:06:53 (1 of 3 - Risk 3-dose series) [code = HEPATITIS B VACCINES (1 of 3 - Risk 3-dose series)] Future Scheduled 2022-09-10 COVID-19 VACCINE (3 - [facility] Test 15:06:53 Booster for Pfizer series) [code = COVID-19 VACCINE (3 - Booster for Pfizer series)] Future Scheduled 2022-09-10 65+ [facility] VACCINE (4 - PPSV23 if available, else PCV20) [code = 65+ PNEUMOCOCCAL VACCINE (4 - PPSV23 if available, else PCV20)] Future Scheduled 2022-09-10 INFLUENZA VACCINE Method [facility] Test 15:06:53 [code = INFLUENZA VACCINE] Future Scheduled 2022-09-10 SHINGLES VACCINES (1 Met [facility] Test 15:06:53 of 2) [code = SHINGLES VACCINES (1 of 2)] Future Scheduled 2022-09-10 BREAST CANCER [facility] Test 15:06:53 SCREENING [code = BREAST CANCER SCREENING] Future Scheduled 2022-09-10 COLONOSCOPY SCREENING [facility] Test 15:06:53 [code = COLONOSCOPY SCREENING] Future Scheduled 2022-09-10 HEPATITIS B VACCINES Met [facility] Test 15:06:53 (1 of 3 - Risk 3-dose series) [code = HEPATITIS B VACCINES (1 of 3 - Risk 3-dose series)] Future Scheduled 2022-09-10 COVID-19 VACCINE (3 - [facility] Test 15:06:53 Booster for Pfizer series) [code = COVID-19 VACCINE (3 - Booster for Pfizer series)] Future Scheduled 2022-09-10 65+ PNEUMOCOCCAL [facility] Test 15:06:53 VACCINE (4 - PPSV23 if available, else PCV20) [code = 65+ PNEUMOCOCCAL VACCINE (4 - PPSV23 if available, else PCV20)] Future Scheduled 2022-09-10 INFLUENZA VACCINE Method [facility] Test 15:06:53 [code = INFLUENZA VACCINE] Future Scheduled 2022-09-10 SHINGLES VACCINES (1 Met [facility] Test 15:06:53 of 2) [code = SHINGLES VACCINES (1 of 2)] Future Scheduled 2022-09-10 BREAST CANCER [facility] Test 15:06:53 SCREENING [code = BREAST CANCER SCREENING] Future Scheduled 2022-09-10 COLONOSCOPY SCREENING [facility] Test 15:06:53 [code = COLONOSCOPY SCREENING] Future Scheduled 2022-09-10 HEPATITIS B VACCINES Met [facility] Test 15:06:53 (1 of 3 - Risk 3-dose series) [code = HEPATITIS B VACCINES (1 of 3 - Risk 3-dose series)] Future Scheduled 2022-09-10 COVID-19 VACCINE (3 - [facility] Test 15:06:53 Booster for Pfizer series) [code = COVID-19 VACCINE (3 - Booster for Pfizer series)] Future Scheduled 2022-09-10 65+ [facility] VACCINE (4 - PPSV23 if available, else PCV20) [code = 65+ PNEUMOCOCCAL VACCINE (4 - PPSV23 if available, else PCV20)] Future Scheduled 2022-09-10 INFLUENZA VACCINE Method [facility] Test 15:06:53 [code = INFLUENZA VACCINE] Future Scheduled 2022-09-10 SHINGLES VACCINES (1 Met [facility] Test 15:06:53 of 2) [code = SHINGLES VACCINES (1 of 2)] Future Scheduled 2022-09-10 BREAST CANCER [facility] Test 15:06:53 SCREENING [code = BREAST CANCER SCREENING] Future Scheduled 2022-09-10 COLONOSCOPY SCREENING [facility] Test 15:06:53 [code = COLONOSCOPY SCREENING] Future Scheduled 2022-09-10 HEPATITIS B VACCINES Met [facility] Test 15:06:53 (1 of 3 - Risk 3-dose series) [code = HEPATITIS B VACCINES (1 of 3 - Risk 3-dose series)] Future Scheduled 2022-09-10 COVID-19 VACCINE (3 - [facility] Test 15:06:53 Booster for Pfizer series) [code = COVID-19 VACCINE (3 - Booster for Pfizer series)] Future Scheduled 2022-09-10 65+ PNEUMOCOCCAL [facility] Test 15:06:53 VACCINE (4 - PPSV23 if available, else PCV20) [code = 65+ PNEUMOCOCCAL VACCINE (4 - PPSV23 if available, else PCV20)] Future Scheduled 2022-09-10 INFLUENZA VACCINE Method [facility] Test 15:06:53 [code = INFLUENZA VACCINE] Future Scheduled 2022-09-10 SHINGLES VACCINES (1 Met [facility] Test 15:06:53 of 2) [code = SHINGLES VACCINES (1 of 2)] Future Scheduled 2022-09-10 BREAST CANCER [facility] Test 15:06:53 SCREENING [code = BREAST CANCER SCREENING] Future Scheduled 2022-09-10 COLONOSCOPY SCREENING [facility] Test 15:06:53 [code = COLONOSCOPY SCREENING] Future Scheduled 2022-09-10 HEPATITIS B VACCINES Met [facility] Test 15:06:53 (1 of 3 - Risk 3-dose series) [code = HEPATITIS B VACCINES (1 of 3 - Risk 3-dose series)] Future Scheduled 2022-09-10 COVID-19 VACCINE (3 - [facility] Test 15:06:53 Booster for Pfizer series) [code = COVID-19 VACCINE (3 - Booster for Pfizer series)] Future Scheduled 2022-09-10 65+ [facility] VACCINE (4 - PPSV23 if available, else PCV20) [code = 65+ PNEUMOCOCCAL VACCINE (4 - PPSV23 if available, else PCV20)] Future Scheduled 2022-09-10 INFLUENZA VACCINE Method [facility] Test 15:06:53 [code = INFLUENZA VACCINE] Future Scheduled 2022-09-10 SHINGLES VACCINES (1 Met [facility] Test 15:06:53 of 2) [code = SHINGLES VACCINES (1 of 2)] Future Scheduled 2022-09-10 BREAST CANCER [facility] Test 15:06:53 SCREENING [code = BREAST CANCER SCREENING] Future Scheduled 2022-09-10 COLONOSCOPY SCREENING [facility] Test 15:06:53 [code = COLONOSCOPY SCREENING] Future Scheduled 2022-09-10 HEPATITIS B VACCINES Met [facility] Test 15:06:53 (1 of 3 - Risk 3-dose series) [code = HEPATITIS B VACCINES (1 of 3 - Risk 3-dose series)] Future Scheduled 2022-09-10 COVID-19 VACCINE (3 - [facility] Test 15:06:53 Booster for Pfizer series) [code = COVID-19 VACCINE (3 - Booster for Pfizer series)] Future Scheduled 2022-09-10 65+ [facility] VACCINE (4 - PPSV23 if available, else PCV20) [code = 65+ PNEUMOCOCCAL VACCINE (4 - PPSV23 if available, else PCV20)] Future Scheduled 2022-09-10 INFLUENZA VACCINE Method [facility] Test 15:06:53 [code = INFLUENZA VACCINE] Future Scheduled 2022-08-26 SHINGLES VACCINES (1 Met [facility] Test 14:43:48 of 2) [code = SHINGLES VACCINES (1 of 2)] Future Scheduled 2022-08-26 BREAST CANCER [facility] Test 14:43:48 SCREENING [code = BREAST CANCER SCREENING] Future Scheduled 2022-08-26 COLONOSCOPY SCREENING [facility] Test 14:43:48 [code = COLONOSCOPY SCREENING] Future Scheduled 2022-08-26 HEPATITIS B VACCINES Met [facility] Test 14:43:48 (1 of 3 - Risk 3-dose series) [code = HEPATITIS B VACCINES (1 of 3 - Risk 3-dose series)] Future Scheduled 2022-08-26 COVID-19 VACCINE (3 - [facility] Test 14:43:48 Booster for Pfizer series) [code = COVID-19 VACCINE (3 - Booster for Pfizer series)] Future Scheduled 2022-08-26 65+ PNEUMOCOCCAL [facility] Test 14:43:48 VACCINE (4 - PPSV23 if available, else PCV20) [code = 65+ PNEUMOCOCCAL VACCINE (4 - PPSV23 if available, else PCV20)] Future Scheduled 2022-08-26 INFLUENZA VACCINE Method [facility] Test 14:43:48 [code = INFLUENZA VACCINE] Future Scheduled 2022-08-07 SHINGLES VACCINES (1 Met [facility] Test 23:30:11 of 2) [code = SHINGLES VACCINES (1 of 2)] Future Scheduled 2022-08-07 BREAST CANCER [facility] Test 23:30:11 SCREENING [code = BREAST CANCER SCREENING] Future Scheduled 2022-08-07 COLONOSCOPY SCREENING [facility] Test 23:30:11 [code = COLONOSCOPY SCREENING] Future Scheduled 2022-08-07 HEPATITIS B VACCINES Met [facility] Test 23:30:11 (1 of 3 - Risk 3-dose series) [code = HEPATITIS B VACCINES (1 of 3 - Risk 3-dose series)] Future Scheduled 2022-08-07 COVID-19 VACCINE (3 - [facility] Test 23:30:11 Booster for Pfizer series) [code = COVID-19 VACCINE (3 - Booster for Pfizer series)] Future Scheduled 2022-08-07 65+ [facility] VACCINE (4 - PPSV23 if available, else PCV20) [code = 65+ PNEUMOCOCCAL VACCINE (4 - PPSV23 if available, else PCV20)] Future Scheduled 2022-08-07 INFLUENZA VACCINE Method [facility] Test 23:30:11 [code = INFLUENZA VACCINE] Future Scheduled 2022-08-07 SHINGLES VACCINES (1 Met [facility] Test 23:30:11 of 2) [code = SHINGLES VACCINES (1 of 2)] Future Scheduled 2022-08-07 BREAST CANCER [facility] Test 23:30:11 SCREENING [code = BREAST CANCER SCREENING] Future Scheduled 2022-08-07 COLONOSCOPY SCREENING [facility] Test 23:30:11 [code = COLONOSCOPY SCREENING] Future Scheduled 2022-08-07 HEPATITIS B VACCINES Met [facility] Test 23:30:11 (1 of 3 - Risk 3-dose series) [code = HEPATITIS B VACCINES (1 of 3 - Risk 3-dose series)] Future Scheduled 2022-08-07 COVID-19 VACCINE (3 - [facility] Test 23:30:11 Booster for Pfizer series) [code = COVID-19 VACCINE (3 - Booster for Pfizer series)] Future Scheduled 2022-08-07 65+ [facility] VACCINE (4 - PPSV23 if available, else PCV20) [code = 65+ PNEUMOCOCCAL VACCINE (4 - PPSV23 if available, else PCV20)] Future Scheduled 2022-08-07 INFLUENZA VACCINE Method [facility] Test 23:30:11 [code = INFLUENZA VACCINE] Future Scheduled 2022-08-06 SHINGLES VACCINES (1 Met [facility] Test 15:48:02 of 2) [code = SHINGLES VACCINES (1 of 2)] Future Scheduled 2022-08-06 BREAST CANCER [facility] Test 15:48:02 SCREENING [code = BREAST CANCER SCREENING] Future Scheduled 2022-08-06 COLONOSCOPY SCREENING [facility] Test 15:48:02 [code = COLONOSCOPY SCREENING] Future Scheduled 2022-08-06 HEPATITIS B VACCINES Met [facility] Test 15:48:02 (1 of 3 - Risk 3-dose series) [code = HEPATITIS B VACCINES (1 of 3 - Risk 3-dose series)] Future Scheduled 2022-08-06 COVID-19 VACCINE (3 - [facility] Test 15:48:02 Booster for Pfizer series) [code = COVID-19 VACCINE (3 - Booster for Pfizer series)] Future Scheduled 2022-08-06 65[facility]02 VACCINE (4 - PPSV23 if available, else PCV20) [code = 65+ PNEUMOCOCCAL VACCINE (4 - PPSV23 if available, else PCV20)] Future Scheduled 2022-08-06 INFLUENZA VACCINE Method [facility] Test 15:48:02 [code = INFLUENZA VACCINE] Future Scheduled 2022-06-11 SHINGLES VACCINES (1 Met [facility] Test 16:10:12 of 2) [code = SHINGLES VACCINES (1 of 2)] Future Scheduled 2022-06-11 BREAST CANCER [facility] Test 16:10:12 SCREENING [code = BREAST CANCER SCREENING] Future Scheduled 2022-06-11 COLONOSCOPY SCREENING [facility] Test 16:10:12 [code = COLONOSCOPY SCREENING] Future Scheduled 2022-06-11 HEPATITIS B VACCINES Met [facility] Test 16:10:12 (1 of 3 - Risk 3-dose series) [code = HEPATITIS B VACCINES (1 of 3 - Risk 3-dose series)] Future Scheduled 2022-06-11 COVID-19 VACCINE (3 - [facility] Test 16:10:12 Booster for Pfizer series) [code = COVID-19 VACCINE (3 - Booster for Pfizer series)] Future Scheduled 2022-06-11 65+ [facility]:10[facility]12 VACCINE (4 - PPSV23 if available, else PCV20) [code = 65+ PNEUMOCOCCAL VACCINE (4 - PPSV23 if available, else PCV20)] Future Scheduled 2022-06-11 INFLUENZA VACCINE Method [facility] Test 16:10:12 [code = INFLUENZA VACCINE] Future Scheduled 2022-06-11 SHINGLES VACCINES (1 Met [facility] Test 16:10:12 of 2) [code = SHINGLES VACCINES (1 of 2)] Future Scheduled 2022-06-11 BREAST CANCER [facility] Test 16:10:12 SCREENING [code = BREAST CANCER SCREENING] Future Scheduled 2022-06-11 COLONOSCOPY SCREENING [facility] Test 16:10:12 [code = COLONOSCOPY SCREENING] Future Scheduled 2022-06-11 HEPATITIS B VACCINES Met [facility] Test 16:10:12 (1 of 3 - Risk 3-dose series) [code = HEPATITIS B VACCINES (1 of 3 - Risk 3-dose series)] Future Scheduled 2022-06-11 COVID-19 VACCINE (3 - [facility] Test 16:10:12 Booster for Pfizer series) [code = COVID-19 VACCINE (3 - Booster for Pfizer series)] Future Scheduled 2022-06-11 65[facility] 16:10:12 VACCINE (4 - PPSV23 if available, else PCV20) [code = 65+ PNEUMOCOCCAL VACCINE (4 - PPSV23 if available, else PCV20)] Future Scheduled 2022-06-11 INFLUENZA VACCINE Method [facility] Test 16:10:12 [code = INFLUENZA VACCINE] Future Scheduled 2022-06-11 SHINGLES VACCINES (1 Met [facility] Test 16:10:12 of 2) [code = SHINGLES VACCINES (1 of 2)] Future Scheduled 2022-06-11 BREAST CANCER [facility] Test 16:10:12 SCREENING [code = BREAST CANCER SCREENING] Future Scheduled 2022-06-11 COLONOSCOPY SCREENING [facility] Test 16:10:12 [code = COLONOSCOPY SCREENING] Future Scheduled 2022-06-11 HEPATITIS B VACCINES Met [facility] Test 16:10:12 (1 of 3 - Risk 3-dose series) [code = HEPATITIS B VACCINES (1 of 3 - Risk 3-dose series)] Future Scheduled 2022-06-11 COVID-19 VACCINE (3 - [facility] Test 16:10:12 Booster for Pfizer series) [code = COVID-19 VACCINE (3 - Booster for Pfizer series)] Future Scheduled 2022-06-11 65[facility] 16:10:12 VACCINE (4 - PPSV23 if available, else PCV20) [code = 65+ PNEUMOCOCCAL VACCINE (4 - PPSV23 if available, else PCV20)] Future Scheduled 2022-06-11 INFLUENZA VACCINE Method [facility] Test 16:10:12 [code = INFLUENZA VACCINE] Future Scheduled 2022-06-11 SHINGLES VACCINES (1 Met [facility] Test 16:10:12 of 2) [code = SHINGLES VACCINES (1 of 2)] Future Scheduled 2022-06-11 BREAST CANCER [facility] Test 16:10:12 SCREENING [code = BREAST CANCER SCREENING] Future Scheduled 2022-06-11 COLONOSCOPY SCREENING [facility] Test 16:10:12 [code = COLONOSCOPY SCREENING] Future Scheduled 2022-06-11 HEPATITIS B VACCINES Met [facility] Test 16:10:12 (1 of 3 - Risk 3-dose series) [code = HEPATITIS B VACCINES (1 of 3 - Risk 3-dose series)] Future Scheduled 2022-06-11 COVID-19 VACCINE (3 - [facility] Test 16:10:12 Booster for Pfizer series) [code = COVID-19 VACCINE (3 - Booster for Pfizer series)] Future Scheduled 2022-06-11 65+ [facility]12 VACCINE (4 - PPSV23 if available, else PCV20) [code = 65+ PNEUMOCOCCAL VACCINE (4 - PPSV23 if available, else PCV20)] Future Scheduled 2022-06-11 INFLUENZA VACCINE Method [facility] Test 16:10:12 [code = INFLUENZA VACCINE] Future Scheduled 2022-06-11 SHINGLES VACCINES (1 Met [facility] Test 16:10:12 of 2) [code = SHINGLES VACCINES (1 of 2)] Future Scheduled 2022-06-11 BREAST CANCER [facility] Test 16:10:12 SCREENING [code = BREAST CANCER SCREENING] Future Scheduled 2022-06-11 COLONOSCOPY SCREENING [facility] Test 16:10:12 [code = COLONOSCOPY SCREENING] Future Scheduled 2022-06-11 HEPATITIS B VACCINES Met [facility] Test 16:10:12 (1 of 3 - Risk 3-dose series) [code = HEPATITIS B VACCINES (1 of 3 - Risk 3-dose series)] Future Scheduled 2022-06-11 COVID-19 VACCINE (3 - [facility] Test 16:10:12 Booster for Pfizer series) [code = COVID-19 VACCINE (3 - Booster for Pfizer series)] Future Scheduled 2022-06-11 65+ [facility] 16:10[facility]12 VACCINE (4 - PPSV23 if available, else PCV20) [code = 65+ PNEUMOCOCCAL VACCINE (4 - PPSV23 if available, else PCV20)] Future Scheduled 2022-06-11 INFLUENZA VACCINE Method [facility] Test 16:10:12 [code = INFLUENZA VACCINE] Future Scheduled 2022-06-11 SHINGLES VACCINES (1 Met [facility] Test 16:10:12 of 2) [code = SHINGLES VACCINES (1 of 2)] Future Scheduled 2022-06-11 BREAST CANCER [facility] Test 16:10:12 SCREENING [code = BREAST CANCER SCREENING] Future Scheduled 2022-06-11 COLONOSCOPY SCREENING [facility] Test 16:10:12 [code = COLONOSCOPY SCREENING] Future Scheduled 2022-06-11 HEPATITIS B VACCINES Met [facility] Test 16:10:12 (1 of 3 - Risk 3-dose series) [code = HEPATITIS B VACCINES (1 of 3 - Risk 3-dose series)] Future Scheduled 2022-06-11 COVID-19 VACCINE (3 - [facility] Test 16:10:12 Booster for Pfizer series) [code = COVID-19 VACCINE (3 - Booster for Pfizer series)] Future Scheduled 2022-06-11 65[facility] 16:10:12 VACCINE (4 - PPSV23 if available, else PCV20) [code = 65+ PNEUMOCOCCAL VACCINE (4 - PPSV23 if available, else PCV20)] Future Scheduled 2022-06-11 INFLUENZA VACCINE Method [facility] Test 16:10:12 [code = INFLUENZA VACCINE] Future Scheduled 2022-06-11 SHINGLES VACCINES (1 Met [facility] Test 16:10:12 of 2) [code = SHINGLES VACCINES (1 of 2)] Future Scheduled 2022-06-11 BREAST CANCER [facility] Test 16:10:12 SCREENING [code = BREAST CANCER SCREENING] Future Scheduled 2022-06-11 COLONOSCOPY SCREENING [facility] Test 16:10:12 [code = COLONOSCOPY SCREENING] Future Scheduled 2022-06-11 HEPATITIS B VACCINES Met [facility] Test 16:10:12 (1 of 3 - Risk 3-dose series) [code = HEPATITIS B VACCINES (1 of 3 - Risk 3-dose series)] Future Scheduled 2022-06-11 COVID-19 VACCINE (3 - [facility] Test 16:10:12 Booster for Pfizer series) [code = COVID-19 VACCINE (3 - Booster for Pfizer series)] Future Scheduled 2022-06-11 65[facility] 16:10:12 VACCINE (4 - PPSV23 if available, else PCV20) [code = 65+ PNEUMOCOCCAL VACCINE (4 - PPSV23 if available, else PCV20)] Future Scheduled 2022-06-11 INFLUENZA VACCINE Method [facility] Test 16:10:12 [code = INFLUENZA VACCINE] Future Scheduled 2022-06-11 SHINGLES VACCINES (1 Met [facility] Test 16:10:12 of 2) [code = SHINGLES VACCINES (1 of 2)] Future Scheduled 2022-06-11 BREAST CANCER [facility] Test 16:10:12 SCREENING [code = BREAST CANCER SCREENING] Future Scheduled 2022-06-11 COLONOSCOPY SCREENING [facility] Test 16:10:12 [code = COLONOSCOPY SCREENING] Future Scheduled 2022-06-11 HEPATITIS B VACCINES Met [facility] Test 16:10:12 (1 of 3 - Risk 3-dose series) [code = HEPATITIS B VACCINES (1 of 3 - Risk 3-dose series)] Future Scheduled 2022-06-11 COVID-19 VACCINE (3 - [facility] Test 16:10:12 Booster for Pfizer series) [code = COVID-19 VACCINE (3 - Booster for Pfizer series)] Future Scheduled 2022-06-11 65+ [facility]12 VACCINE (4 - PPSV23 if available, else PCV20) [code = 65+ PNEUMOCOCCAL VACCINE (4 - PPSV23 if available, else PCV20)] Future Scheduled 2022-06-11 INFLUENZA VACCINE Method [facility] Test 16:10:12 [code = INFLUENZA VACCINE] Future Scheduled 2022-06-11 SHINGLES VACCINES (1 Met [facility] Test 16:10:12 of 2) [code = SHINGLES VACCINES (1 of 2)] Future Scheduled 2022-06-11 BREAST CANCER [facility] Test 16:10:12 SCREENING [code = BREAST CANCER SCREENING] Future Scheduled 2022-06-11 COLONOSCOPY SCREENING [facility] Test 16:10:12 [code = COLONOSCOPY SCREENING] Future Scheduled 2022-06-11 HEPATITIS B VACCINES Met [facility] Test 16:10:12 (1 of 3 - Risk 3-dose series) [code = HEPATITIS B VACCINES (1 of 3 - Risk 3-dose series)] Future Scheduled 2022-06-11 COVID-19 VACCINE (3 - [facility] Test 16:10:12 Booster for Pfizer series) [...] Future Scheduled 2022-05-10 SHINGLES VACCINES (1 Met [facility] Test 10:21:35 of 2) [code = SHINGLES VACCINES (1 of 2)] Future Scheduled 2022-05-10 BREAST CANCER [facility] Test 10:21:35 SCREENING [code = BREAST CANCER SCREENING] Future Scheduled 2022-05-10 COLONOSCOPY SCREENING [facility] Test 10:21:35 [code = COLONOSCOPY SCREENING] Future Scheduled 2022-05-10 HEPATITIS B VACCINES Met [facility] Test 10:21:35 (1 of 3 - Risk 3-dose series) [code = HEPATITIS B VACCINES (1 of 3 - Risk 3-dose series)] Future Scheduled 2022-05-10 COVID-19 VACCINE (3 - [facility] Test 10:21:35 Booster for Pfizer series) [code = COVID-19 VACCINE (3 - Booster for Pfizer series)] Future Scheduled 2022-05-10 65+ [facility] 10:21:35 VACCINE (4 - PPSV23 if available, else PCV20) [code = 65+ PNEUMOCOCCAL VACCINE (4 - PPSV23 if available, else PCV20)] Future Scheduled 2022-05-10 INFLUENZA VACCINE Method [facility] Test 10:21:35 [code = INFLUENZA VACCINE] Future Scheduled 2022-05-10 SHINGLES VACCINES (1 Met [facility] Test 10:21:35 of 2) [code = SHINGLES VACCINES (1 of 2)] Future Scheduled 2022-05-10 BREAST CANCER [facility] Test 10:21:35 SCREENING [code = BREAST CANCER SCREENING] Future Scheduled 2022-05-10 COLONOSCOPY SCREENING [facility] Test 10:21:35 [code = COLONOSCOPY SCREENING] Future Scheduled 2022-05-10 HEPATITIS B VACCINES Met [facility] Test 10:21:35 (1 of 3 - Risk 3-dose series) [code = HEPATITIS B VACCINES (1 of 3 - Risk 3-dose series)] Future Scheduled 2022-05-10 COVID-19 VACCINE (3 - [facility] Test 10:21:35 Booster for Pfizer series) [code = COVID-19 VACCINE (3 - Booster for Pfizer series)] Future Scheduled 2022-05-10 65+ [facility] 10:21:35 VACCINE (4 - PPSV23 if available, else PCV20) [code = 65+ PNEUMOCOCCAL VACCINE (4 - PPSV23 if available, else PCV20)] Future Scheduled 2022-05-10 INFLUENZA VACCINE Method [facility] Test 10:21:35 [code = INFLUENZA VACCINE] Future Scheduled 2022-05-06 SHINGLES VACCINES (1 Met [facility] Test 14:03:13 of 2) [code = SHINGLES VACCINES (1 of 2)] Future Scheduled 2022-05-06 BREAST CANCER [facility] Test 14:03:13 SCREENING [code = BREAST CANCER SCREENING] Future Scheduled 2022-05-06 COLONOSCOPY SCREENING [facility] Test 14:03:13 [code = COLONOSCOPY SCREENING] Future Scheduled 2022-05-06 HEPATITIS B VACCINES Met [facility] Test 14:03:13 (1 of 3 - Risk 3-dose series) [code = HEPATITIS B VACCINES (1 of 3 - Risk 3-dose series)] Future Scheduled 2022-05-06 COVID-19 VACCINE (3 - [facility] Test 14:03:13 Booster for Pfizer series) [code = COVID-19 VACCINE (3 - Booster for Pfizer series)] Future Scheduled 2022-05-06 65+ PNEUMOCOCCAL [facility] Test 14:03:13 VACCINE (4 - PPSV23 if available, else PCV20) [code = 65+ PNEUMOCOCCAL VACCINE (4 - PPSV23 if available, else PCV20)] Future Scheduled 2022-05-06 INFLUENZA VACCINE Method [facility] Test 14:03:13 [code = INFLUENZA VACCINE] Future Scheduled 2022-04-30 SHINGLES VACCINES (1 Met [facility] Test 01:07:32 of 2) [code = SHINGLES VACCINES (1 of 2)] Future Scheduled 2022-04-30 BREAST CANCER [facility] Test 01:07:32 SCREENING [code = BREAST CANCER SCREENING] Future Scheduled 2022-04-30 COLONOSCOPY SCREENING [facility] Test 01:07:32 [code = COLONOSCOPY SCREENING] Future Scheduled 2022-04-30 HEPATITIS B VACCINES Met [facility] Test 01:07:32 (1 of 3 - Risk 3-dose series) [code = HEPATITIS B VACCINES (1 of 3 - Risk 3-dose series)] Future Scheduled 2022-04-30 COVID-19 VACCINE (3 - [facility] Test 01:07:32 Booster for Pfizer series) [code = COVID-19 VACCINE (3 - Booster for Pfizer series)] Future Scheduled 2022-04-30 65+ PNEUMOCOCCAL [facility] Test 01:07:32 VACCINE (4 - PPSV23 if available, else PCV20) [code = 65+ PNEUMOCOCCAL VACCINE (4 - PPSV23 if available, else PCV20)] Future Scheduled 2022-04-30 INFLUENZA VACCINE Method [facility] Test 01:07:32 [code = INFLUENZA VACCINE] Future Scheduled 2022-04-30 SHINGLES VACCINES (1 Met [facility] Test 01:07:32 of 2) [code = SHINGLES VACCINES (1 of 2)] Future Scheduled 2022-04-30 BREAST CANCER [facility] Test 01:07:32 SCREENING [code = BREAST CANCER SCREENING] Future Scheduled 2022-04-30 COLONOSCOPY SCREENING [facility] Test 01:07:32 [code = COLONOSCOPY SCREENING] Future Scheduled 2022-04-30 HEPATITIS B VACCINES Met [facility] Test 01:07:32 (1 of 3 - Risk 3-dose series) [code = HEPATITIS B VACCINES (1 of 3 - Risk 3-dose series)] Future Scheduled 2022-04-30 COVID-19 VACCINE (3 - [facility] Test 01:07:32 Booster for Pfizer series) [code = COVID-19 VACCINE (3 - Booster for Pfizer series)] Future Scheduled 2022-04-30 65+ PNEUMOCOCCAL [facility] Test 01:07:32 VACCINE (4 - PPSV23 if available, else PCV20) [code = 65+ PNEUMOCOCCAL VACCINE (4 - PPSV23 if available, else PCV20)] Future Scheduled 2022-04-30 INFLUENZA VACCINE Method [facility] Test 01:07:32 [code = INFLUENZA VACCINE] Future Scheduled 2022-04-30 SHINGLES VACCINES (1 Met [facility] Test 01:07:32 of 2) [code = SHINGLES VACCINES (1 of 2)] Future Scheduled 2022-04-30 [facility]ER [facility] [facility] Test 01:07:32 SCREENING [code = BREAST CANCER SCREENING] Future Scheduled 2022-04-30 COLONOSCOPY SCREENING [facility] Test 01:07:32 [code = COLONOSCOPY SCREENING] Future Scheduled 2022-04-30 HEPATITIS B VACCINES Met [facility] Test 01:07:32 (1 of 3 - Risk 3-dose series) [code = HEPATITIS B VACCINES (1 of 3 - Risk 3-dose series)] Future Scheduled 2022-04-30 COVID-19 VACCINE (3 - [facility] Test 01:07:32 Booster for Pfizer series) [code = COVID-19 VACCINE (3 - Booster for Pfizer series)] Future Scheduled 2022-04-30 65+ [facility] VACCINE (4 - PPSV23 if available, else PCV20) [code = 65+ PNEUMOCOCCAL VACCINE (4 - PPSV23 if available, else PCV20)] Future Scheduled 2022-04-30 INFLUENZA VACCINE Method [facility] Test 01:07:32 [code = INFLUENZA VACCINE] Future Scheduled 2022-04-25 SHINGLES VACCINES (1 Met [facility] Test 01:45:02 of 2) [code = SHINGLES VACCINES (1 of 2)] Future Scheduled 2022-04-25 BREAST CANCER [facility] Test 01:45:02 SCREENING [code = BREAST CANCER SCREENING] Future Scheduled 2022-04-25 COLONOSCOPY SCREENING [facility] Test 01:45:02 [code = COLONOSCOPY SCREENING] Future Scheduled 2022-04-25 HEPATITIS B VACCINES Met [facility] Test 01:45:02 (1 of 3 - Risk 3-dose series) [code = HEPATITIS B VACCINES (1 of 3 - Risk 3-dose series)] Future Scheduled 2022-04-25 COVID-19 VACCINE (3 - [facility] Test 01:45:02 Booster for Pfizer series) [code = COVID-19 VACCINE (3 - Booster for Pfizer series)] Future Scheduled 2022-04-25 65+ PNEUMOCOCCAL [facility] Test 01:45:02 VACCINE (4 - PPSV23 if available, else PCV20) [code = 65+ PNEUMOCOCCAL VACCINE (4 - PPSV23 if available, else PCV20)] Future Scheduled 2022-04-25 INFLUENZA VACCINE Method [facility] Test 01:45:02 [code = INFLUENZA VACCINE] Future Scheduled 2022-03-25 SHINGLES VACCINES (1 Met [facility] Test 14:48:42 of 2) [code = SHINGLES VACCINES (1 of 2)] Future Scheduled 2022-03-25 BREAST CANCER [facility] Test 14:48:42 SCREENING [code = BREAST CANCER SCREENING] Future Scheduled 2022-03-25 COLONOSCOPY SCREENING [facility] Test 14:48:42 [code = COLONOSCOPY SCREENING] Future Scheduled 2022-03-25 HEPATITIS B VACCINES Met [facility] Test 14:48:42 (1 of 3 - Risk 3-dose series) [code = HEPATITIS B VACCINES (1 of 3 - Risk 3-dose series)] Future Scheduled 2022-03-25 COVID-19 VACCINE (3 - [facility] Test 14:48:42 Booster for Pfizer series) [code = COVID-19 VACCINE (3 - Booster for Pfizer series)] Future Scheduled 2022-03-25 65+ [facility] VACCINE (4 - PPSV23 if available, else PCV20) [code = 65+ PNEUMOCOCCAL VACCINE (4 - PPSV23 if available, else PCV20)] Future Scheduled 2022-03-25 INFLUENZA VACCINE Method [facility] Test 14:48:42 [code = INFLUENZA VACCINE] Future Scheduled 2022-03-25 SHINGLES VACCINES (1 Met [facility] Test 14:48:42 of 2) [code = SHINGLES VACCINES (1 of 2)] Future Scheduled 2022-03-25 BREAST CANCER [facility] Test 14:48:42 SCREENING [code = BREAST CANCER SCREENING] Future Scheduled 2022-03-25 COLONOSCOPY SCREENING [facility] Test 14:48:42 [code = COLONOSCOPY SCREENING] Future Scheduled 2022-03-25 HEPATITIS B VACCINES Met [facility] Test 14:48:42 (1 of 3 - Risk 3-dose series) [code = HEPATITIS B VACCINES (1 of 3 - Risk 3-dose series)] Future Scheduled 2022-03-25 COVID-19 VACCINE (3 - [facility] Test 14:48:42 Booster for Pfizer series) [code = COVID-19 VACCINE (3 - Booster for Pfizer series)] Future Scheduled 2022-03-25 65+ [facility] 14:48[facility]42 VACCINE (4 - PPSV23 if available, else PCV20) [code = 65+ PNEUMOCOCCAL VACCINE (4 - PPSV23 if available, else PCV20)] Future Scheduled 2022-03-25 INFLUENZA VACCINE Method [facility] Test 14:48:42 [code = INFLUENZA VACCINE] Future Scheduled 2022-03-25 SHINGLES VACCINES (1 Met [facility] Test 14:48:42 of 2) [code = SHINGLES VACCINES (1 of 2)] Future Scheduled 2022-03-25 BREAST CANCER [facility] Test 14:48:42 SCREENING [code = BREAST CANCER SCREENING] Future Scheduled 2022-03-25 COLONOSCOPY SCREENING [facility] Test 14:48:42 [code = COLONOSCOPY SCREENING] Future Scheduled 2022-03-25 HEPATITIS B VACCINES Met [facility] Test 14:48:42 (1 of 3 - Risk 3-dose series) [code = HEPATITIS B VACCINES (1 of 3 - Risk 3-dose series)] Future Scheduled 2022-03-25 COVID-19 VACCINE (3 - [facility] Test 14:48:42 Booster for Pfizer series) [code = COVID-19 VACCINE (3 - Booster for Pfizer series)] Future Scheduled 2022-03-25 65+ [facility] 14:48[facility]42 VACCINE (4 - PPSV23 if available, else PCV20) [code = 65+ PNEUMOCOCCAL VACCINE (4 - PPSV23 if available, else PCV20)] Future Scheduled 2022-03-25 INFLUENZA VACCINE Method [facility] Test 14:48:42 [code = INFLUENZA VACCINE] Future Scheduled 2022-03-25 SHINGLES VACCINES (1 Met [facility] Test 14:48:42 of 2) [code = SHINGLES VACCINES (1 of 2)] Future Scheduled 2022-03-25 BREAST CANCER [facility] Test 14:48:42 SCREENING [code = BREAST CANCER SCREENING] Future Scheduled 2022-03-25 COLONOSCOPY SCREENING [facility] Test 14:48:42 [code = COLONOSCOPY SCREENING] Future Scheduled 2022-03-25 HEPATITIS B VACCINES Met [facility] Test 14:48:42 (1 of 3 - Risk 3-dose series) [code = HEPATITIS B VACCINES (1 of 3 - Risk 3-dose series)] Future Scheduled 2022-03-25 COVID-19 VACCINE (3 - [facility] Test 14:48:42 Booster for Pfizer series) [...] 2022-03-25 SHINGLES VACCINES (1 Met [facility] Test 14:48:42 of 2) [code = SHINGLES VACCINES (1 of 2)] Future Scheduled 2022-03-25 BREAST CANCER [facility] Test 14:48:42 SCREENING [code = BREAST CANCER SCREENING] Future Scheduled 2022-03-25 COLONOSCOPY SCREENING [facility] Test 14:48:42 [code = COLONOSCOPY SCREENING] Future Scheduled 2022-03-25 HEPATITIS B VACCINES Met [facility] Test 14:48:42 (1 of 3 - Risk 3-dose series) [code = HEPATITIS B VACCINES (1 of 3 - Risk 3-dose series)] Future Scheduled 2022-03-25 COVID-19 VACCINE (3 - [facility] Test 14:48:42 Booster for Pfizer series) [code = COVID-19 VACCINE (3 - Booster for Pfizer series)] Future Scheduled 2022-03-25 65+ [facility] 14:48:42 VACCINE (4 - PPSV23 if available, else PCV20) [code = 65+ PNEUMOCOCCAL VACCINE (4 - PPSV23 if available, else PCV20)] Future Scheduled 2022-03-25 INFLUENZA VACCINE Method [facility] Test 14:48:42 [code = INFLUENZA VACCINE] Future Scheduled 2022-03-25 SHINGLES VACCINES (1 Met [facility] Test 14:48:42 of 2) [code = SHINGLES VACCINES (1 of 2)] Future Scheduled 2022-03-25 BREAST CANCER [facility] Test 14:48:42 SCREENING [code = BREAST CANCER SCREENING] Future Scheduled 2022-03-25 COLONOSCOPY SCREENING [facility] Test 14:48:42 [code = COLONOSCOPY SCREENING] Future Scheduled 2022-03-25 HEPATITIS B VACCINES Met [facility] Test 14:48:42 (1 of 3 - Risk 3-dose series) [code = HEPATITIS B VACCINES (1 of 3 - Risk 3-dose series)] Future Scheduled 2022-03-25 COVID-19 VACCINE (3 - [facility] Test 14:48:42 Booster for Pfizer series) [code = COVID-19 VACCINE (3 - Booster for Pfizer series)] Future Scheduled 2022-03-25 65[facility] 14:[facility]:42 VACCINE (4 - PPSV23 if available, else PCV20) [code = 65+ PNEUMOCOCCAL VACCINE (4 - PPSV23 if available, else PCV20)] Future Scheduled 2022-03-25 INFLUENZA VACCINE Method [facility] Test 14:48:42 [code = INFLUENZA VACCINE] Future Scheduled 2022-03-25 SHINGLES VACCINES (1 Met [facility] Test 14:48:42 of 2) [code = SHINGLES VACCINES (1 of 2)] Future Scheduled 2022-03-25 BREAST CANCER [facility] Test 14:48:42 SCREENING [code = BREAST CANCER SCREENING] Future Scheduled 2022-03-25 COLONOSCOPY SCREENING [facility] Test 14:48:42 [code = COLONOSCOPY SCREENING] Future Scheduled 2022-03-25 HEPATITIS B VACCINES Met [facility] Test 14:48:42 (1 of 3 - Risk 3-dose series) [code = HEPATITIS B VACCINES (1 of 3 - Risk 3-dose series)] Future Scheduled 2022-03-25 COVID-19 VACCINE (3 - [facility] Test 14:48:42 Booster for Pfizer series) [code = COVID-19 VACCINE (3 - Booster for Pfizer series)] Future Scheduled 2022-03-25 65[facility] 14:48:42 VACCINE (4 - PPSV23 if available, else PCV20) [code = 65+ PNEUMOCOCCAL VACCINE (4 - PPSV23 if available, else PCV20)] Future Scheduled 2022-03-25 INFLUENZA VACCINE Method [facility] Test 14:48:42 [code = INFLUENZA VACCINE] Future Scheduled 2022-03-25 SHINGLES VACCINES (1 Met [facility] Test 14:48:42 of 2) [code = SHINGLES VACCINES (1 of 2)] Future Scheduled 2022-03-25 BREAST CANCER [facility] Test 14:48:42 SCREENING [code = BREAST CANCER SCREENING] Future Scheduled 2022-03-25 COLONOSCOPY SCREENING [facility] Test 14:48:42 [code = COLONOSCOPY SCREENING] Future Scheduled 2022-03-25 HEPATITIS B VACCINES Met [facility] Test 14:48:42 (1 of 3 - Risk 3-dose series) [code = HEPATITIS B VACCINES (1 of 3 - Risk 3-dose series)] Future Scheduled 2022-03-25 COVID-19 VACCINE (3 - [facility] Test 14:48:42 Booster for Pfizer series) [code = COVID-19 VACCINE (3 - Booster for Pfizer series)] Future Scheduled 2022-03-25 65+ PNEUMOCOCCAL [facility] Test 14:48:42 VACCINE (4 - PPSV23 if available, else PCV20) [code = 65+ PNEUMOCOCCAL VACCINE (4 - PPSV23 if available, else PCV20)] Future Scheduled 2022-03-25 INFLUENZA VACCINE Method [facility] Test 14:48:42 [code = INFLUENZA VACCINE] Future Scheduled 2022-03-25 SHINGLES VACCINES (1 Met [facility] Test 14:48:42 of 2) [code = SHINGLES VACCINES (1 of 2)] Future Scheduled 2022-03-25 BREAST CANCER [facility] Test 14:48:42 SCREENING [code = BREAST CANCER SCREENING] Future Scheduled 2022-03-25 COLONOSCOPY SCREENING [facility] Test 14:48:42 [code = COLONOSCOPY SCREENING] Future Scheduled 2022-03-25 HEPATITIS B VACCINES Met [facility] Test 14:48:42 (1 of 3 - Risk 3-dose series) [code = HEPATITIS B VACCINES (1 of 3 - Risk 3-dose series)] Future Scheduled 2022-03-25 COVID-19 VACCINE (3 - [facility] Test 14:48:42 Booster for Pfizer series) [code = COVID-19 VACCINE (3 - Booster for Pfizer series)] Future Scheduled 2022-03-25 65+ PNEUMOCOCCAL [facility] Test 14:48:42 VACCINE (4 - PPSV23 if available, else PCV20) [code = 65+ PNEUMOCOCCAL VACCINE (4 - PPSV23 if available, else PCV20)] Future Scheduled 2022-03-25 INFLUENZA VACCINE Method [facility] Test 14:48:42 [code = INFLUENZA VACCINE] Future Scheduled 2022-03-04 SHINGLES VACCINES (1 Met [facility] Test 14:03:57 of 2) [code = SHINGLES VACCINES (1 of 2)] Future Scheduled 2022-03-04 BREAST CANCER [facility] Test 14:03:57 SCREENING [code = BREAST CANCER SCREENING] Future Scheduled 2022-03-04 COLONOSCOPY SCREENING [facility] Test 14:03:57 [code = COLONOSCOPY SCREENING] Future Scheduled 2022-03-04 HEPATITIS B VACCINES Met [facility] Test 14:03:57 (1 of 3 - Risk 3-dose series) [code = HEPATITIS B VACCINES (1 of 3 - Risk 3-dose series)] Future Scheduled 2022-03-04 COVID-19 VACCINE (3 - [facility] Test 14:03:57 Booster for Pfizer series) [code = COVID-19 VACCINE (3 - Booster for Pfizer series)] Future Scheduled 2022-03-04 65+ PNEUMOCOCCAL [facility] Test 14:03:57 VACCINE (4 - PPSV23 if available, else PCV20) [code = 65+ PNEUMOCOCCAL VACCINE (4 - PPSV23 if available, else PCV20)] Future Scheduled 2022-03-04 INFLUENZA VACCINE Method [facility] Test 14:03:57 [code = INFLUENZA VACCINE] Future Scheduled 2022-03-04 SHINGLES VACCINES (1 Met [facility] Test 14:03:57 of 2) [code = SHINGLES VACCINES (1 of 2)] Future Scheduled 2022-03-04 BREAST CANCER [facility] Test 14:03:57 SCREENING [code = BREAST CANCER SCREENING] Future Scheduled 2022-03-04 COLONOSCOPY SCREENING [facility] Test 14:03:57 [code = COLONOSCOPY SCREENING] Future Scheduled 2022-03-04 HEPATITIS B VACCINES Met [facility] Test 14:03:57 (1 of 3 - Risk 3-dose series) [code = HEPATITIS B VACCINES (1 of 3 - Risk 3-dose series)] Future Scheduled 2022-03-04 COVID-19 VACCINE (3 - [facility] Test 14:03:57 Booster for Pfizer series) [code = COVID-19 VACCINE (3 - Booster for Pfizer series)] Future Scheduled 2022-03-04 65+ PNEUMOCOCCAL [facility] Test 14:03:57 VACCINE (4 - PPSV23 if available, else PCV20) [code = 65+ PNEUMOCOCCAL VACCINE (4 - PPSV23 if available, else PCV20)] Future Scheduled 2022-03-04 INFLUENZA VACCINE Method [facility] Test 14:03:57 [code = INFLUENZA VACCINE] Future Scheduled 2022-03-04 SHINGLES VACCINES (1 Met [facility] Test 14:03:57 of 2) [code = SHINGLES VACCINES (1 of 2)] Future Scheduled 2022-03-04 BREAST CANCER [facility] Test 14:03:57 SCREENING [code = BREAST CANCER SCREENING] Future Scheduled 2022-03-04 COLONOSCOPY SCREENING [facility] Test 14:03:57 [code = COLONOSCOPY SCREENING] Future Scheduled 2022-03-04 HEPATITIS B VACCINES Met [facility] Test 14:03:57 (1 of 3 - Risk 3-dose series) [code = HEPATITIS B VACCINES (1 of 3 - Risk 3-dose series)] Future Scheduled 2022-03-04 COVID-19 VACCINE (3 - [facility] Test 14:03:57 Booster for Pfizer series) [code = COVID-19 VACCINE (3 - Booster for Pfizer series)] Future Scheduled 2022-03-04 65+ [facility]:03[facility]57 VACCINE (4 - PPSV23 if available, else PCV20) [code = 65+ PNEUMOCOCCAL VACCINE (4 - PPSV23 if available, else PCV20)] Future Scheduled 2022-03-04 INFLUENZA VACCINE Method [facility] Test 14:03:57 [code = INFLUENZA VACCINE] Future Scheduled 2022-03-04 SHINGLES VACCINES (1 Met [facility] Test 14:03:57 of 2) [code = SHINGLES VACCINES (1 of 2)] Future Scheduled 2022-03-04 BREAST CANCER [facility] Test 14:03:57 SCREENING [code = BREAST CANCER SCREENING] Future Scheduled 2022-03-04 COLONOSCOPY SCREENING [facility] Test 14:03:57 [code = COLONOSCOPY SCREENING] Future Scheduled 2022-03-04 HEPATITIS B VACCINES Met [facility] Test 14:03:57 (1 of 3 - Risk 3-dose series) [code = HEPATITIS B VACCINES (1 of 3 - Risk 3-dose series)] Future Scheduled 2022-03-04 COVID-19 VACCINE (3 - [facility] Test 14:03:57 Booster for Pfizer series) [code = COVID-19 VACCINE (3 - Booster for Pfizer series)] Future Scheduled 2022-03-04 65[facility] 14:03:57 VACCINE (4 - PPSV23 if available, else PCV20) [code = 65+ PNEUMOCOCCAL VACCINE (4 - PPSV23 if available, else PCV20)] Future Scheduled 2022-03-04 INFLUENZA VACCINE Method [facility] Test 14:03:57 [code = INFLUENZA VACCINE] Future Scheduled 2022-02-11 SHINGLES VACCINES (1 Met [facility] Test 13:39:12 of 2) [code = SHINGLES VACCINES (1 of 2)] Future Scheduled 2022-02-11 BREAST CANCER [facility] Test 13:39:12 SCREENING [code = BREAST CANCER SCREENING] Future Scheduled 2022-02-11 COLONOSCOPY SCREENING [facility] Test 13:39:12 [code = COLONOSCOPY SCREENING] Future Scheduled 2022-02-11 HEPATITIS B VACCINES Met [facility] Test 13:39:12 (1 of 3 - Risk 3-dose series) [code = HEPATITIS B VACCINES (1 of 3 - Risk 3-dose series)] Future Scheduled 2022-02-11 COVID-19 VACCINE (3 - [facility] Test 13:39:12 Booster for Pfizer series) [code = COVID-19 VACCINE (3 - Booster for Pfizer series)] Future Scheduled 2022-02-11 65+ PNEUMOCOCCAL [facility] Test 13:39:12 VACCINE (4 - PPSV23 or PCV20) [code = 65+ PNEUMOCOCCAL VACCINE (4 - PPSV23 or PCV20)] Future Scheduled 2022-02-11 INFLUENZA VACCINE Method [facility] Test 13:39:12 [code = INFLUENZA VACCINE] Future Scheduled 2022-01-29 SHINGLES VACCINES (1 Met [facility] Test 14:07:20 of 2) [code = SHINGLES VACCINES (1 of 2)] Future Scheduled 2022-01-29 BREAST CANCER [facility] Test 14:07:20 SCREENING [code = BREAST CANCER SCREENING] Future Scheduled 2022-01-29 COLONOSCOPY SCREENING [facility] Test 14:07:20 [code = COLONOSCOPY SCREENING] Future Scheduled 2022-01-29 HEPATITIS B VACCINES Met [facility] Test 14:07:20 (1 of 3 - Risk 3-dose series) [code = HEPATITIS B VACCINES (1 of 3 - Risk 3-dose series)] Future Scheduled 2022-01-29 COVID-19 VACCINE (3 - [facility] Test 14:07:20 Booster for Pfizer series) [code = COVID-19 VACCINE (3 - Booster for Pfizer series)] Future Scheduled 2022-01-29 65+ [facility] VACCINE (4 - PPSV23 or PCV20) [code = 65+ PNEUMOCOCCAL VACCINE (4 - PPSV23 or PCV20)] Future Scheduled 2022-01-29 [facility]:07:20 [code = INFLUENZA VACCINE] Future Scheduled 2022-01-29 SHINGLES VACCINES (1 Met [facility] Test 14:07:20 of 2) [code = SHINGLES VACCINES (1 of 2)] Future Scheduled 2022-01-29 BREAST CANCER [facility] Test 14:07:20 SCREENING [code = BREAST CANCER SCREENING] Future Scheduled 2022-01-29 COLONOSCOPY SCREENING [facility] Test 14:07:20 [code = COLONOSCOPY SCREENING] Future Scheduled 2022-01-29 HEPATITIS B VACCINES Met [facility] Test 14:07:20 (1 of 3 - Risk 3-dose series) [code = HEPATITIS B VACCINES (1 of 3 - Risk 3-dose series)] Future Scheduled 2022-01-29 COVID-19 VACCINE (3 - [facility] Test 14:07:20 Booster for Pfizer series) [code = COVID-19 VACCINE (3 - Booster for Pfizer series)] Future Scheduled 2022-01-29 65+ PNEUMOCOCCAL [facility] Test 14:07:20 VACCINE (4 - PPSV23 or PCV20) [code = 65+ PNEUMOCOCCAL VACCINE (4 - PPSV23 or PCV20)] Future Scheduled 2022-01-29 INFLUENZA VACCINE Method [facility] Test 14:07:20 [code = INFLUENZA VACCINE] Future Scheduled 2022-01-29 SHINGLES VACCINES (1 Met [facility] Test 14:07:20 of 2) [code = SHINGLES VACCINES (1 of 2)] Future Scheduled 2022-01-29 BREAST CANCER [facility] Test 14:07:20 SCREENING [code = BREAST CANCER SCREENING] Future Scheduled 2022-01-29 COLONOSCOPY SCREENING [facility] Test 14:07:20 [code = COLONOSCOPY SCREENING] Future Scheduled 2022-01-29 HEPATITIS B VACCINES Met [facility] Test 14:07:20 (1 of 3 - Risk 3-dose series) [code = HEPATITIS B VACCINES (1 of 3 - Risk 3-dose series)] Future Scheduled 2022-01-29 COVID-19 VACCINE (3 - [facility] Test 14:07:20 Booster for Pfizer series) [code = COVID-19 VACCINE (3 - Booster for Pfizer series)] Future Scheduled 2022-01-29 65+ [facility] VACCINE (4 - PPSV23 or PCV20) [code = 65+ PNEUMOCOCCAL VACCINE (4 - PPSV23 or PCV20)] Future Scheduled 2022-01-29 INFLUENZA VACCINE Method [facility] Test 14:07:20 [code = INFLUENZA VACCINE] Future Scheduled 2022-01-29 SHINGLES VACCINES (1 Met [facility] Test 14:07:20 of 2) [code = SHINGLES VACCINES (1 of 2)] Future Scheduled 2022-01-29 BREAST CANCER [facility] Test 14:07:20 SCREENING [code = BREAST CANCER SCREENING] Future Scheduled 2022-01-29 COLONOSCOPY SCREENING [facility] Test 14:07:20 [code = COLONOSCOPY SCREENING] Future Scheduled 2022-01-29 HEPATITIS B VACCINES Met [facility] Test 14:07:20 (1 of 3 - Risk 3-dose series) [code = HEPATITIS B VACCINES (1 of 3 - Risk 3-dose series)] Future Scheduled 2022-01-29 COVID-19 VACCINE (3 - [facility] Test 14:07:20 Booster for Pfizer series) [code = COVID-19 VACCINE (3 - Booster for Pfizer series)] Future Scheduled 2022-01-29 65+ [facility] VACCINE (4 - PPSV23 or PCV20) [code = 65+ PNEUMOCOCCAL VACCINE (4 - PPSV23 or PCV20)] Future Scheduled 2022-01-29 INFLUENZA VACCINE Method [facility] Test 14:07:20 [code = INFLUENZA VACCINE] Future Scheduled 2022-01-20 SHINGLES VACCINES (1 Met [facility] Test 06:12:34 of 2) [code = SHINGLES VACCINES (1 of 2)] Future Scheduled 2022-01-20 Screening for [facility] Test 06:12:34 malignant neoplasm of cervix (procedure) [code = [id number]] Future Scheduled 2022-01-20 BREAST CANCER [facility] Test 06:12:34 SCREENING [code = BREAST CANCER SCREENING] Future Scheduled 2022-01-20 COLONOSCOPY SCREENING [facility] Test 06:12:34 [code = COLONOSCOPY SCREENING] Future Scheduled 2022-01-20 HEPATITIS B VACCINES Met [facility] Test 06:12:34 (1 of 3 - Risk 3-dose series) [code = HEPATITIS B VACCINES (1 of 3 - Risk 3-dose series)] Future Scheduled 2022-01-20 COVID-19 VACCINE (3 - [facility] Test 06:12:34 Booster for Pfizer series) [code = COVID-19 VACCINE (3 - Booster for Pfizer series)] Future Scheduled 2022-01-20 65+ PNEUMOCOCCAL [facility] Test 06:12:34 VACCINE (4 - PPSV23 or PCV20) [code = 65+ PNEUMOCOCCAL VACCINE (4 - PPSV23 or PCV20)] Future Scheduled 2022-01-20 INFLUENZA VACCINE Method [facility] Test 06:12:34 [code = INFLUENZA VACCINE] Future Scheduled 2022-01-16 SHINGLES VACCINES (1 Met [facility] Test 12:09:25 of 2) [code = SHINGLES VACCINES (1 of 2)] Future Scheduled 2022-01-16 Screening for [facility] Test 12:09:25 malignant neoplasm of cervix (procedure) [code = [id number]] Future Scheduled 2022-01-16 BREAST CANCER [facility] Test 12:09:25 SCREENING [code = BREAST CANCER SCREENING] Future Scheduled 2022-01-16 COLONOSCOPY SCREENING [facility] Test 12:09:25 [code = COLONOSCOPY SCREENING] Future Scheduled 2022-01-16 HEPATITIS B VACCINES Met [facility] Test 12:09:25 (1 of 3 - Risk 3-dose series) [code = HEPATITIS B VACCINES (1 of 3 - Risk 3-dose series)] Future Scheduled 2022-01-16 COVID-19 VACCINE (3 - [facility] Test 12:09:25 Booster for Pfizer series) [code = COVID-19 VACCINE (3 - Booster for Pfizer series)] Future Scheduled 2022-01-16 65+ PNEUMOCOCCAL [facility] Test 12:09:25 VACCINE (4 - PPSV23 or PCV20) [code = 65+ PNEUMOCOCCAL VACCINE (4 - PPSV23 or PCV20)] Future Scheduled 2022-01-16 INFLUENZA VACCINE Method [facility] Test 12:09:25 [code = INFLUENZA VACCINE] Future Scheduled 2022-01-14 SHINGLES VACCINES (1 Met [facility] Test 04:11:46 of 2) [code = SHINGLES VACCINES (1 of 2)] Future Scheduled 2022-01-14 Screening for [facility] Test 04:11:46 malignant neoplasm of cervix (procedure) [code = [id number]] Future Scheduled 2022-01-14 [facility] [facility] Test 04:11:46 SCREENING [code = BREAST CANCER SCREENING] Future Scheduled 2022-01-14 COLONOSCOPY SCREENING [facility] Test 04:11:46 [code = COLONOSCOPY SCREENING] Future Scheduled 2022-01-14 HEPATITIS B VACCINES Met [facility] Test 04:11:46 (1 of 3 - Risk 3-dose series) [code = HEPATITIS B VACCINES (1 of 3 - Risk 3-dose series)] Future Scheduled 2022-01-14 COVID-19 VACCINE (3 - [facility] Test 04:11:46 Booster for Pfizer series) [code = COVID-19 VACCINE (3 - Booster for Pfizer series)] Future Scheduled 2022-01-14 65+ PNEUMOCOCCAL [facility] Test 04:11:46 VACCINE (4 - PPSV23 or PCV20) [code = 65+ PNEUMOCOCCAL VACCINE (4 - PPSV23 or PCV20)] Future Scheduled 2022-01-14 INFLUENZA VACCINE Method [facility] Test 04:11:46 [code = INFLUENZA VACCINE] Future Scheduled 2021-08-26 Screening for [facility] Test 13:02:23 malignant neoplasm of cervix (procedure) [code = 083575271] Future Scheduled 2021-08-26 BREAST CANCER [facility] Test 13:02:23 SCREENING [code = BREAST CANCER SCREENING] Future Scheduled 2021-08-26 COLONOSCOPY SCREENING [facility] Test 13:02:23 [code = COLONOSCOPY SCREENING] Future Scheduled 2021-08-26 Screening for [facility] Test 13:02:23 malignant neoplasm of lung (procedure) [code = 246788609] Future Scheduled 2021-08-26 SHINGLES VACCINES (#1) [facility] Test 13:02:23 [code = SHINGLES VACCINES (#1)] Future Scheduled 2021-08-26 COVID-19 VACCINE (3 - [facility] Test 13:02:23 Pfizer risk 4-dose series) [code = COVID-19 VACCINE (3 - Pfizer risk 4-dose series)] Future Scheduled 2021-08-26 65+ PNEUMOCOCCAL [facility] Test 13:02:23 VACCINE (4 of 4 - PPSV23) [code = 65+ PNEUMOCOCCAL VACCINE (4 of 4 - PPSV23)] Future Scheduled 2021-08-26 INFLUENZA VACCINE Method [facility] Test 13:02:23 [code = INFLUENZA VACCINE] Encounters Start End Encounter Admission Attending Care Care Encounter Source Date/Time Date/Time Type Type Clinicians Facility Department ID 2022-02-18 Outpatient CHW CHW [id number] [place] 14:30:[address] [place] [address] and [facility] 2021-07-14 Outpatient SADIKOVIC, [facility] [id number] [place] 09:33:51 [facility] 2021-06-02 Outpatient HEMATPOUR, [facility] [id number] [place] 13:58:59 [facility] 2021-04-28 Outpatient HEMATPOUR, [facility] [id number] [place] 11:21:22 [facility] 2021-03-20 Emergency [facility] [id number] [facility] Out[facility] HEMATPOUR, [facility] [id number] [place] 08:16:46 [facility] 2020-10-31 Outpatient HEMATPOUR, [facility] [id number] [place] 09:44:50 [facility] 2020-09-30 Outpatient HEMATPOUR, [facility] [id number] [place] 13:16:03 [facility] 2022-11-26 2022-11-26 Outpatient R [facility] [id number] Univers 08:30:00 08:30:00 [facility] 2022-11-15 2022-11-15 Outpatient R [facility] [id number] Univers 08:30:00 08:30:00 [facility] 2022-11-02 2022-11-02 Outpatient R [facility] [id number] Univers 08:30:00 08:30:00 [facility] 2022-10-27 2022-10-27 Telephone JOSÉ ANTONIO Cardenas 1.2.840.114 [id number] Univers 00:00:00 00:00:00 [place] [facility] 350.1.13.10 i ty of [facility] 4.2.7.2.686 [place] [id number] [facility] 089 Branch 2022-10-06 2022-10-06 Outpatient R [facility] [id number] Univers 09:30:00 09:30:00 SANTIAGO ity of [facility] 2022-09-26 2022-09-26 Refill [facility], [facility] 1.2.930.025 [id number] Univers 00:00:00 00:00:00 [facility] HEALTH 350.1.13.10 i [place] [id number] [address] 2022-09-03 2022-09-03 Outpatient R [facility] [id number] Univers 11:00:00 11:00:00 SANTIAGO itcharlie [facility] 2022-08-24 2022-08-24 Refill [facility], 1.2.840.1 [id number] Univers 00:00:00 00:00:00 Santiago 20509.1.1 ity of 3.104.2.7 [place] .3.337957 Medica l .8 Branch 2022-05-20 2022-05-20 Telephone [facility] 1.2.840.114 [id number] Univers 00:00:00 00:00:00 [facility] HEALTH 350.1.13.10 i ty [place] [id number] [address] 2022-05-10 2022-05-10 Emergency X [facility] ERT [id number] Univers 10:30:00 16:31:00 HOME ity [facility] 2022-05-10 2022-05-10 Emergency Gerardo, TRAUMA 1.2.840.114 [id number] Univers 10:30:00 16:31:00 Home B CENTER 350.1.13.10 [place] [id number] [facility] 014 Branch 2022-05-10 2022-05-10 [facility] 1.2.840.114 99 [id number] Univers 00:00:00 00:00:00 [facility] HEALTH 350.1.13.10 i ty [place] [id number] [address] 2022-05-08 2022-05-08 Emergency [facility] [id number] Univers 16:18:00 18:42:00 THERESA charlie [facility] 2022-05-08 2022-05-08 [facility] 1.2.840.114 [id number] Univers 16:18:00 18:42:00 Theresa Oviedo KOBE 350.1.13.10 ity of [place] 4.2.7.2.686 [facility] [phone] [address] 2022-05-07 2022-05-07 Telephone [facility] 1.2.840.114 99 [id number] Univers 00:00:00 00:00:00 [facility] 350.1.13.10 i ty [place] [id number] [address] 2022-05-06 2022-05-06 Emergency [facility] [id number] Univers 14:13:00 18:19:00 ANETTE barbosa [facility] 2022-05-06 2022-05-06 [facility] 1.2.491.422 [id number] Univers 14:13:00 18:19:00 Anette BULLOCK 350.1.13.10 ity of [place] 4.2.7.2.686 [facility] [id number] [address] 2022-05-06 2022-05-06 Telephone [facility] 1.2.840.114 [id number] Univers 00:00:00 00:00:00 [facility] 350.1.13.10 i ty [place] [phone] [address] 2022-04-22 2022-04-22 Emergency David [facility] [id number] Univers 13:55:00 17:00:00 PAULETTE charlie [facility] 2022-04-22 2022-04-22 Emergency [facility] 1.2.833.467 [id number] Univers 13:55:00 17:00:00 Paulette BULLOCK 350.1.13.10 i ty of [place] 4.2.7.2.686 [facility] [phone] [facility] 084 [place] 2022-04-07 2022-04-07 Outpatient R [facility] [id number] Univers 20:40:00 20:40:00 ATTENDING ity [facility] 2022-04-07 2022-04-07 Telephone Devin, 1.2.840.5 [id number] [id number] Univers 00:00:00 00:00:00 Robbi Hairston 21649.1.1 i ty of 3.104.2.7 [place] .3.466483 Medica l .8 [place] 2022-03-05 2022-03-05 Enamel Drier Ronald [place] 1.2.840.1 [id number] Univers 13:45:00 14:00:00 Visit [facility] 93967.1.1 ity of 3.104.2.7 [place] .3.307442 Medica l .8 [place] 2022-03-05 2022-03-05 Office JOSÉ ANTONIO Cardenas 1.2.406.823 [id number] Univers 13:00:00 13:30:00 Visit [place] [facility] 350.1.13.10 i ty of [facility] 4.2.7.2.686 [facility] [id number] [place] 242839 [place] 2022-03-05 2022-03-05 Outpatient R [facility] [id number] Univers 13:00:00 13:00:00 [facility] 2022-02-26 2022-02-26 Outpatient R [facility] [id number] Univers 08:30:00 08:30:00 SANTIAGO [facility] 2022-02-26 2022-02-26 Outpatient R [facility] [id number] Univers 08:30:00 08:30:00 [facility] 2022-02-17 2022-02-17 Transition Stevo, 1.2.840.9 [id number] Univers 00:00:00 00:00:00 of Care Isaias Arredondo 13088.1.1 it y of 3.104.2.7 [place] .3.643111 Medica l .8 Branch 2022-02-10 2022-02-16 Inpatient X FRANK [facility] [id number] Univers 22:59:00 19:27:00 PETER ity of [facility] 2022-02-10 2022-02-16 [facility] Reilly Means 1.2.840.1 [id number] Univers 22:59:00 19:27:00 Encounter Ofe Shields 52919.1.1 ity of [place] 3.104.2.7 [place] .3.036384 Medica l .8 Branch 2022-02-11 2022-02-11 Telephone East, 1.2.840.7 [id number] Univers 00:00:00 00:00:00 Santiago 42022.1.1 ity of 3.104.2.7 [place] .3.824496 Medica l .8 Branch 2022-02-10 2022-02-10 Travel 1.2.840.1 1.2.039.504 [id number] Univers 00:00:00 00:00:00 24136.1.1 350.1.13.10 ity of 3.104.2.7 4.2.7.3.698 [place] .3.994489 084.8 Medica l .8 [place] 2022-01-30 2022-01-30 Telephone East, 1.2.840.2 [id number] Univers 00:00:00 00:00:00 [place] 91630.1.1 ity of 3.104.2.7 [place] .3.917941 Medica l .8 [place] 2022-01-06 2022-01-06 Orders Doctor FERMIN 1.2.840.114 [id number] Univers 00:00:00 00:00:00 Only Unassigned, JACKELINE 350.1.13.10 ity of [facility] 4.2.7.2.686 Yomi as [id number] [facility] 009 [place] 2021-12-25 2021-12-25 Orders Doctor FERMIN 1.2.840.114 [id number] Univers 00:00:00 00:00:00 Only Unassigned, JACKELINE 350.1.13.10 ity of [facility] 4.2.7.2.686 Yomi as [id number] [facility] 009 Branch 2021-12-12 2021-12-13 Emergency X Bill COLES [facility] ERT [id number] Univers 23:53:00 01:52:00 ity of [facility] 2021-12-12 2021-12-13 Emergency Bill Coles [facility] 1.2.840.114 [id number] Univers 23:53:00 01:52:00 Kiersten BULLOCK 350.1.13.10 i ty [place].2.7.2.[place] [id number] [facility] 084 Branch 2021-11-20 2021-11-20 Enamel Drier [facility] UN[facility]ERSIT 1.2.840.114 [id number] Univers 09:45:00 10:00:00 Visit [facility] 350.1.13.10 ity of [facility] 4.2.7.2.[place] [id number] [facility] 316 Branch 2021-11-20 2021-11-20 Office [facility] 1.2.861.395 [id number] Univers 08:30:00 09:00:00 Visit [facility] 350.1.13.10 i ty of [facility] 4.2.7.2.[place] 357.1121035 [facility] 089 Branch 2021-11-20 2021-11-20 Outpatient R [facility] [id number] Univers 08:30:00 08:30:00 [facility] 2021-11-20 2021-11-20 Outpatient R [facility] [id number] Univers 08:30:00 08:30:00 [facility] 2021-11-20 2021-11-20 Outpatient R [facility] [id number] Univers 08:30:00 08:30:00 [facility] 2021-11-20 2021-11-20 Outpatient R [facility] [id number] Univers 08:30:00 08:30:00 [facility] 2021-10-24 2021-10-24 Emergency X ESVIN [facility] ERT [id number] Univers 16:27:00 22:26:00 CHARITY barbosa [facility] 2021-10-24 2021-10-24 Emergency X ESVIN [facility] ERT [id number] Univers 16:27:00 22:26:00 CHARITY barbosa [facility] 2021-10-24 2021-10-24 Emergency Reilly Means [facility] 1.2.840. 114 [id number] Univers 16:27:00 22:26:00 Charity Mcallister 350.1.13.10 ity of [facility] 4.2.7.2.686 [facility] [id number] [address] 2021-10-23 2021-10-24 Emergency X ESVIN [facility] ERT [id number] Univers 20:22:00 02:57:00 CHARITY barbosa [facility] 2021-10-23 2021-10-24 [facility] 1.2.589.223 [id number] Univers 20:22:00 02:57:00 [facility] 350.1.13.10 ity of [place] 4.2.7.2.686 [facility] [id number] [address] 2021-09-07 2021-09-07 Outpatient R SELF, [facility] [id number] Univers 08:00:00 08:00:[address] [facility] 2021-09-07 2021-09-07 Outpatient R SELF, [facility] [id number] Univers 08:00:00 08:00:00 GADIEL rodas [facility] 2021-08-21 2021-08-21 Outpatient R RONALD [facility] [id number] Univers 10:45:00 10:45:00 SANTIAGO barbosa [facility] 2021-08-21 2021-08-21 Enamel Drier [place] Cardenas 1.2.840.1 [id number] Univers 10:45:00 10:45:00 Visit [facility] 43343.1.1 ity of 3.104.2.7 [place] .3.797333 Medica l .8 Branch 2021-08-21 2021-08-21 Office East, 1.2.840.2 [id number] Univers 08:30:00 09:00:00 Visit Santiago 79397.1.1 ity of 3.104.2.7 [place] .3.332253 Medica l .8 [place] 2021-08-21 2021-08-21 Office East, [facility]ERS[facility] 1.2.362.304 [id number] [id number] Univers 08:30:00 09:00:00 Visit [place] [facility] 350.1.13.10 i ty of [place] 4[place] [id number] [facility] 089 [place] 2021-08-21 2021-08-21 Outpatient R [facility] [id number] Univers 08:30:00 08:30:00 [facility] 2021-08-21 2021-08-21 Travel 1.2.840.1 1.2.466.955 [id number] Univers 00:00:00 00:00:00 30256.1.1 350.1.13.10 ity of 3.104.2.7 4.2.7.3.698 [place] .3.695742 084.8 Medica l .8 [place] 2021-08-14 2021-08-14 Telephone East, 1.2.840.4 [id number] Univers 00:00:00 00:00:00 [place] 72877.1.1 ity of 3.104.2.7 [place] .3.728784 Medica l .8 [place] 2021-08-13 2021-08-13 Telephone East, 1.2.840.8 [id number] Univers 00:00:00 00:00:00 Santiago 82075.1.1 ity of 3.104.2.7 [place] .3.641148 Medica l .8 [place] 2021-08-11 2021-08-11 Outpatient R [facility] [id number] Univers 08:00:00 08:00:00 SANTIAGO ity [facility] 2021-08-05 2021-08-05 Inpatient EDUARDO LealCL OUTD [id number] [facility] 05:24:00 05:24:00 Mike 31 [facility] 2021-07-20 2021-07-20 Outpatient R [facility] [id number] Univers 10:00:00 10:00:00 [facility] 2021-07-14 2021-07-14 Office Pankaj, UTP 6400 1.2.840.114 13 [id number] [place] 08:45:00 09:34:[address] 350.1.13.58 Health 9.2.7.2.686 [id number] 1 2021-07-09 2021-07-09 Telephone H[place], UTP 6400 1.2.840.114 [id number] [place] 00:00:00 00:00:[address] 350.1.13.58 Health 9.2.7.2.686 [id number] 1 2021-07-09 2021-07-09 Telephone [place], UTP 6400 1.2.840.114 [id number] [place] 00:00:00 00:00:[address] 350.1.13.58 Health 9.2.7.2.686 [id number] 1 2021-07-03 2021-07-03 Outpatient R [facility] [id number] Univers 08:00:00 08:00:00 SANTIAGO [facility] 2021-06-17 2021-06-17 Inpatient EDUARDO LealCL INTE.02 [id number] [facility] 10:56:00 14:36:00 Mike 47 [facility] 2021-06-15 2021-06-15 Outpatient R SELF, [facility] [id number] Univers 10:15:00 11:07:21 GADIEL rodas [facility] 2021-06-15 2021-06-15 Outpatient R SELF, [facility] [id number] Univers 10:15:00 10:15:00 GADIEL rodas [facility] 2021-06-15 2021-06-15 Outpatient R SELF, [facility] [id number] Univers 10:15:00 10:15:00 GADIEL ity o f [facility] 2021-06-15 2021-06-15 Orders Doctor 1.2.840.1 [id number] Univers 00:00:00 00:00:00 Only Unassigned, 41583.1.1 ity of [place] 3.104.2.7 [place] .3.744884 Medica l .8 Branch 2021-06-15 2021-06-15 Travel 1.2.840.1 1.2.778.825 [id number] Univers 00:00:00 00:00:00 43833.1.1 350.1.13.10 ity of 3.104.2.7 4.2.7.3.698 [place] .3.225926 084.8 Medica l .8 [place] 2021-06-11 2021-06-11 Refill [facility], [facility] 1.2.254.680 [id number] Univers 00:00:00 00:00:00 [facility] 350.1.13.10 i ty of CL[place]ICS 4.2.[place].2.[place] [id number] [place] 242839 [place] 2021-06-11 2021-06-11 Refill [facility], 1.2.840.8 [id number] Univers 00:00:00 00:00:00 [place] 42554.1.1 ity of 3.104.2.7 [place] .3.495626 Medica l .8 [place] 2021-06-05 2021-06-05 Outpatient R EAST, [facility] [id number] Univers 09:00:00 09:00:00 SANTIAGO ity of [facility] 2021-06-02 2021-06-02 Telephone [facility], [facility] 1.2.840.114 [id number] Univers 00:00:00 00:00:00 [facility] 350.1.13.10 i ty of [place] 4[place] [id number] [address] 2021-06-02 2021-06-02 Telephone East, 1.2.840.1 [id number] Univers 00:00:00 00:00:00 [place] 35499.1.1 ity of 3.104.2.7 [place] .3.478528 Medica l .8 Branch 2021-05-29 2021-05-29 Telephone East, 1.2.840.6 [id number] [id number] Univers 00:00:00 00:00:00 [place] 93022.1.1 ity of 3.104.2.7 [place] .3.005171 Medica l .8 Branch 2021-05-29 2021-05-29 Telephone East, 1.2.840.9 [id number] [id number] Univers 00:00:00 00:00:00 [place] 79160.1.1 ity of 3.104.2.7 [place] .3.329360 Medica l .8 [place] 2021-05-25 2021-05-25 Outpatient R RODO, [facility] [id number] Univers 08:00:00 08:00:00 GADIEL barbosa o f [facility] 2021-04-29 2021-04-29 Outpatient R LALA, [facility] [id number] Univers 08:00:00 08:00:00 NIKOLAI barbosa [facility] 2021-04-28 2021-04-28 Telephone [place], UTP 6400 1.2.840.114 [id number] [place] 00:00:00 00:00:[address] 350.1.13.58 Health 9.2.7.2.686 [id number] 1 2021-04-28 2021-04-28 Telephone Jailyn, 1.2.840.7 [id number] 21 [id number] Methodi 00:00:00 00:00:[address] 3.430.2.7 Hospit a .3.570770 l .8 2021-03-31 2021-03-31 Orders Carol Ann, 1.2.840.1 [id number] Methodi 00:00:00 00:00:00 Only Sarai Lieberman 68292.1.1 979 s t 3.430.2.7 Hospit a .3.557922 l .8 2021-03-30 2021-03-30 Outpatient R RODO, [facility] [id number] Univers 08:45:00 08:45:00 GADIEL barbosa o f [facility] 2021-03-24 2021-03-24 Telephone Jailyn, 1.2.840.4 [id number] 21 [id number] Methodi 00:00:00 00:00:[address] 3.430.2.7 Hospit a .3.945059 l .8 2021-02-13 2021-02-13 Telephone Ronald, 1.2.840.1 [id number] [id number] Univers 00:00:00 00:00:00 [place] 06524.1.1 ity of 3.104.2.7 [place] .3.918597 Medica l .8 [place] 2021-01-28 2021-01-28 Outpatient [facility] [id number] Univers 08:45:00 09:37:00 NIKOLAI raheemcharlie of [facility] 2021-01-28 2021-01-28 Travel 1.2.840.1 1.2.196.478 [id number] [id number] Univers 00:00:00 00:00:00 87893.1.1 350.1.13.10 ity of 3.104.2.7 4.2.7.3.698 [place] .3.063739 084.8 Medica l .8 [place] 2021-01-19 2021-01-19 Telephone Prabhu, 1.2.840.1 [id number] [id number] Methodi 00:00:00 00:00:[address] 3.430.2.7 Hospit a .3.811853 l .8 2021-01-04 2021-01-04 Letter Shelia, 1.2.840.3 [id number] 62295 696 Univers 00:00:00 00:00:00 (Out) Dagoberto Peterson 54780.1.1 ity of 3.104.2.7 [place] .3.751474 Medica l .8 Branch 2021-01-04 2021-01-04 Dmitry Bass, 1.2.840.4 [id number] 37100 696 Univers 00:00:00 00:00:00 (Out) Dagoberto H 83482.1.1 ity of 3.104.2.7 [place] .3.694734 Medica l .8 Branch 2021-01-03 2021-01-03 Dmitry Bass, 1.2.840.4 [id number] 790 Univers 00:00:00 00:00:00 (Out) Dagoberto H 16260.1.1 ity of 3.104.2.7 [place] .3.311219 Medica l .8 [place] 2021-01-03 2021-01-03 Dmitry Bass, 1.2.840.7 [id number] 790 Univers 00:00:00 00:00:00 (Out) Dagoberto H 86465.1.1 ity of 3.104.2.7 [place] .3.172005 Medica l .8 [place] 2021-01-02 2021-01-02 Outpatient R [facility] [id number] Univers 13:40:00 13:40:00 ity of [facility] 2021-01-02 2021-01-02 Laboratory [place] Franks 1.2.840.6 [id number] Univers 12:14:13 12:57:34 Only Lab, Star [place] Pob I 04016.1.1 ity of 3.104.2.7 [place] .3.411448 Medica l .8 [place] 2021-01-02 2021-01-02 Laboratory [place] Franks 1.2.840.3 [id number] [id number] Univers 12:14:13 12:57:34 Only Lab, Star Fam Pob I 17021.1.1 ity of 3.104.2.7 [place] .3.050832 Medica l .8 [place] 2021-01-02 2021-01-02 Travel 1.2.840.1 1.2.479.570 3557 2306 Univers 00:00:00 00:00:00 62031.1.1 350.1.13.10 ity of 3.104.2.7 4.[place].7.3.698 [place] .3.496732 084.8 Medica l .8 Branch 2021-01-02 2021-01-02 Letter Doctor 1.2.840.5 [id number] 948 Univers 00:00:00 00:00:00 (Out) Unassigned, 07984.1.1 ity of [place] 3.104.2.7 [place] .3.105506 Medica l .8 Branch 2021-01-02 2021-01-02 Letter Doctor 1.2.840.3 [id number] 03201 946 Univers 00:00:00 00:00:00 (Out) Unassigned, 49753.1.1 ity of [place] 3.104.2.7 [place] .3.209999 Medica l .8 [place] 2021-01-02 2021-01-02 Travel 1.2.840.1 1.2.954.895 4539 2306 Univers 00:00:00 00:00:00 39291.1.1 350.1.13.10 ity of 3.104.2.7 4[place]7.3.698 [place] .3.071260 084.8 Medica l .8 Branch 2021-01-02 2021-01-02 Letter Doctor 1.2.840.4 [id number] 948 Univers 00:00:00 00:00:00 (Out) Unassigned, 05811.1.1 ity of [place] 3.104.2.7 [place] .3.941477 Medica l .8 Branch 2021-01-02 2021-01-02 Letter Doctor 1.2.840.1 [id number] [id number] 946 Univers 00:00:00 00:00:00 (Out) Unassigned, 15427.1.1 ity of [place] 3.104.2.7 [place] .3.184654 Medica l .8 Branch 2020-12-22 2020-12-22 Telephone Devin, 1.2.840.7 [id number] 862 [id number] Univers 00:00:00 00:00:00 Devina R 94454.1.1 i ty of 3.104.2.7 [place] .3.824415 Medica l .8 [place] 2020-12-22 2020-12-22 Telephone Devin, 1.2.840.4 [id number] 862 40152 Univers 00:00:00 00:00:00 Devina R 01050.1.1 i ty of 3.104.2.7 [place] .3.406501 Medica l .8 [place] 2020-12-12 2020-12-12 Office [place], UTP 6400 1.2.840.114 12 [id number] [place] 07:42:02 08:18:[address] 350.1.13.58 Health 9.2.7.2.686 [id number] 1 2020-12-12 2020-12-12 Office [place], UTP 6400 1.2.840.114 12 [id number] 07:42:02 08:18:[facility] 350.1.13.58 9.2.7.2.686 [id number] 1 2020-12-09 2020-12-09 Telephone Carol Ann, 1.2.840.1 [id number] Methodi 00:00:00 00:00:00 Sarai Lieberman 96244.1.1 316 s t 3.430.2.7 Hospit a .3.508499 l .8 2020-12-08 2020-12-08 [facility], 1.2.840.1 [id number] 2100 [id number] Methodi 12:35:54 23:59:00 Encounter Ray 31331.1.[address] 3.430.2.7 Hospit a .3.975043 l .8 2020-12-08 2020-12-08 [facility], 1.2.840.1 [id number] 73377 54476 Methodi 17:25:00 17:30:[address] 3.430.2.7 Hospit a .3.006928 l .8 2020-12-08 2020-12-[facility] 1.2.840.1 [id number] 73556 26156 Methodi 10:30:00 11:39:56 Visit Ray 35282.1.[address] 3.430.2.7 Hospit a .3.383623 l .8 2020-12-08 2020-12-08 Travel 1.2.840.1 1.2.802.363 4349 611523 Methodi 00:00:00 00:00:[address] 3.430.2.7 0.2.7.3.698 [facility] .3.298114 084.8 l .8 2020-12-02 2020-12-02 Enamel Drier Santiago Cardenas 1.2.840.1 [id number] [facility] 10:20:06 10:36:19 Visit [facility] 44183.1.1 ity of 3.104.2.7 [place] .3.987283 Medica l .8 [place] 2020-12-02 2020-12-02 Enamel Drier Santiago Cardenas 1.2.840.1 [id number] [facility] 10:20:06 10:36:19 Visit [facility] 38783.1.1 ity of 3.104.2.7 [place] .3.020172 Medica l .8 [place] 2020-12-02 2020-12-02 Enamel Drier [facility] 1.2.840.114 8 [id number] 10:20:06 10:36:19 Visit [facility] 350.1.13.10 CLINICS 4.2.7.2.686 [id number] 316 2020-12-02 2020-12-02 Office Ronald 1.2.840.0 [id number] 528 Univers 08:31:37 09:01:37 Visit Santiago 03206.1.1 ity of 3.104.2.7 [place] .3.947040 Medica l .8 [place] 2020-12-02 2020-12-02 Outpatient R RONALD [facility] [id number] Univers 09:00:00 09:00:00 SANTIAGO barbosa of [facility] 2020-11-25 2020-11-25 Office Devin, 1.2.840.0 [id number] Univers 11:06:30 11:58:14 Visit Robbi Hairston 70115.1.1 i ty of 3.104.2.7 [place] .3.366555 Medica l .8 [place] 2020-11-25 2020-11-25 Office Devin, 1.2.840.9 [id number] 865 Univers 11:06:30 11:58:14 Visit Robbi R 68586.1.1 i ty of 3.104.2.7 [place] .3.547127 Medica l .8 [place] 2020-11-25 2020-11-25 [facility] 1.2.840.114 [id number] 11:06:30 11:58:14 Visit Robbi Hairston 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 350.1.13.10 REGIONAL 4.2.7.2.686 MATERNAL [id number] & CHILD [address] [place] [address] 2020-11-25 2020-11-25 Outpatient R [facility] [id number] Univers 11:00:00 11:00:00 ity of [facility] 2020-11-25 2020-11-25 Telephone Devin, 1.2.840.6 [id number] 855 [id number] Univers 00:00:00 00:00:00 Robbi Hairston 44202.1.1 i ty of 3.104.2.7 [place] .3.074845 Medica l .8 [place] 2020-11-25 2020-11-25 Refill [facility], 1.2.840.2 [id number] 592 Univers 00:00:00 00:00:00 Santiago 80371.1.1 ity of 3.104.2.7 [place] .3.386679 Medica l .8 [place] 2020-11-25 2020-11-25 Travel 1.2.840.1 1.2.019.507 4200 0247 Univers 00:00:00 00:00:00 03849.1.1 350.1.13.10 ity of 3.104.2.7 4[place].7.3.698 [place] .3.817636 084.8 Medica l .8 [place] 2020-11-25 2020-11-25 Orders Doctor 1.2.840.3 [id number] 064 Univers 00:00:00 00:00:00 Only Unassigned, 28857.1.1 ity of [place] 3.104.2.7 [place] .3.418577 Medica l .8 [facility] 2020-11-25 2020-11-25 Telephone Beltran, 1.2.840.9 [id number] 855 [id number] Univers 00:00:00 00:00:00 Roshunda R 05224.1.1 i ty of 3.104.2.7 [place] .3.099931 Medica l .8 Branch 2020-11-25 2020-11-25 Refill [facility], 1.2.840.8 [id number] 592 Univers 00:00:00 00:00:00 Santiago 70534.1.1 ity of 3.104.2.7 [place] .3.509693 Medica l .8 [facility] 2020-11-25 2020-11-25 Travel 1.2.840.1 1.2.603.628 8485 0247 Univers 00:00:00 00:00:00 11668.1.1 350.1.13.10 ity of 3.104.2.7 4.[place].7.3.698 [place] .3.889798 084.8 Medica l .8 [place] 2020-11-25 2020-11-25 Orders Doctor 1.2.840.0 [id number] 064 Univers 00:00:00 00:00:00 Only Unassigned, 50808.1.1 ity of [place] 3.104.2.7 [place] .3.746848 Medica l .8 Branch 2020-11-25 2020-11-25 [facility]24 3838 4592 00:00:00 00:00:00 [facility] 350.1.13.10 CLINICS 4.2.7.2.686 [id number] 089 2020-11-25 2020-11-25 [facility] 1.2.174.165 9670 0821 00:00:00 00:00:00 Robbi Hairston 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 350.1.13.10 REGIONAL 4.2.7.2.686 MATERNAL [id number] & CHILD [address] [place] [address] 2020-11-14 2020-11-14 Abstract Clark, 1.2.840.1 [id number] 83874 Methodi 00:00:00 00:00:[address] 3.430.2.7 Hospit a .3.912042 l .8 2020-11-14 2020-11-14 Telephone Clark, 1.2.840.1 [id number] 2100 068496 Methodi 00:00:00 00:00:[address] 3.430.2.7 Hospit a .3.188999 l .8 2020-11-12 2020-11-12 Outpatient Marika [facility] [id number] Univers 08:30:00 08:30:00 [facility] 2020-11-07 2020-11-07 Telephone Agustina Ortiz 6400 1.2.840.11 4 [id number] [place] 00:00:00 00:00:[address] 350.1.13.58 Health 9.2.7.2.686 [id number] 1 2020-11-07 2020-11-07 Telephone KIMBERLEY Ortiz 6400 1.2.840.114 124 [id number] 00:00:00 00:00:[address] 350.1.13.58 9.2.7.2.686 191.3788623 1 2020-10-31 2020-10-31 Office KIMBERLEY Layton 6400 1.2.840.114 12 [id number] [place] 07:54:00 09:45:[address] 350.1.13.58 Health 9.2.7.2.686 [id number] 1 2020-10-30 2020-10-30 Abstract Rody Maguire UTP 6400 1.2.840.1 14 [id number] [place] 00:00:00 00:00:[address] 350.1.13.58 Health 9.2.7.2.686 [id number] 1 2020-10-29 2020-10-29 Refill [place], 1.2.840.8 [id number] 69080 400 Univers 00:00:00 00:00:00 Santiago 21414.1.1 ity of 3.104.2.7 [place] .3.163174 Medica l .8 Branch 2020-10-29 2020-10-29 Refill [place], 1.2.840.2 [id number] 08072 400 Univers 00:00:00 00:00:00 Santiago 83951.1.1 ity of 3.104.2.7 [place] .3.844546 Medica l .8 [place] 2020-10-27 2020-10-27 Telephone Jeredimasa, 1.2.840.7 [id number] 21 [id number] Methodi 00:00:00 00:00:[address] 3.430.2.7 Hospit a .3.788922 l .8 2020-10-24 2020-10-24 Telephone Rodas, 1.2.840.1 [id number] 2100 819259 Methodi 00:00:00 00:00:[address] 3.430.2.7 Hospit a .3.197296 l .8 2020-10-22 2020-10-22 Outpatient R SELF, [facility] [id number] Univers 13:00:00 13:00:00 GADIEL rodas [facility] 2020-10-22 2020-10-22 Travel 1.2.840.1 1.2.614.942 1446 3839 Univers 00:00:00 00:00:00 36742.1.1 350.1.13.10 ity of 3.104.2.7 4.2.7.3.698 [place] .3.382851 084.8 Medica l .8 Branch 2020-10-22 2020-10-22 Travel 1.2.840.1 1.2.067.735 6936 3839 Univers 00:00:00 00:00:00 97081.1.1 350.1.13.10 ity of 3.104.2.7 4.2.7.3.698 [place] .3.845228 084.8 Medica l .8 Branch 2020-10-13 2020-10-13 Outpatient R SELF, [facility] [id number] Univers 08:45:00 08:45:00 GADIEL barbosa o f [facility] 2020-10-06 2020[facility]10-[facility] 1.2.840.1 [id number] Methodi 15:30:00 00:08:46 ne Ray 31409.1.[address] 3.430.2.7 Hospit a .3.127322 l .8 2020-09-30 2020-09-30 [facility], 1.2.840.3 [id number] Methodi 00:00:00 00:00:[address] 3.430.2.7 Hospit a .3.223531 l .8 2020-09-21 2020-09-21 Travel 1.2.840.1 1.2.972.687 7405 874277 Methodi 00:00:00 00:00:[address] 3.430.2.7 0.2.7.3.698 Ho spita .3.920867 084.8 l .8 2020-09-06 2020-09-06 [facility] 1.2.840.1 [id number] 24174 Methodi 17:42:30 23:59:[address] 3.430.2.7 Hospit a .3.780416 l .8 2020-09-06 2020-09-06 [facility], 1.2.840.1 [id number] 2099 [id number] Methodi 16:50:00 17:41:00 Encounter Ray 75322.1.[address] 3.430.2.7 Hospit a .3.949299 l .8 2020-09-05 2020-09-05 [facility], 1.2.840.1 [id number] 2099 815425 Methodi 09:17:00 19:45:00 Encounter Ray [address]382.1.[address] 3.430.2.7 Hospit a .3.486721 l .8 2020-09-05 2020-09-05 Surgery [facility], 1.2.840.1 [id number] 82277 Methodi 11:30:00 13:15:[address] 3.430.2.7 Hospit a .3.025025 l .8 2020-09-05 2020-09-[address] [facility], 1.2.840.1 [id number] Methodi 11:27:00 12:20:00 Event Sarvalentinawathi 52037.1.1 243 s t V. 3.430.2.7 Hospit a .3.862737 l .8 2020-09-05 2020-09-05 Travel 1.2.840.1 1.2.541.702 3017 940054 Methodi 00:00:00 00:00:[address] 3.430.2.7 0.2.7.3.698 Ho spita .3.369318 084.8 l .8 2020-09-04 2020-09-04 [facility], 1.2.840.1 [id number] Methodi 00:00:00 00:00:00 Sarai M. 38488.1.1 762 s t 3.430.2.7 Hospit a .3.459814 l .8 2020-09-02 2020-09-02 [facility], 1.2.840.8 [id number] Methodi 00:00:00 00:00:00 Sarai M. 50038.1.1 344 s t 3.430.2.7 Hospit a .3.529030 l .8 2020-08-29 2020-08-30 Bedded [facility] [id number] 10:20:00 14:10:00 Outpatient r [place] 00 l [facility] 2020-08-29 2020-08-30 Outpatient H[facility], [facility] CAR 7500 [facility] 05:20:00 09:10:00 BEVERLY 2020-08-06 2020-08-06 Office [place], 1.2.840.7 [id number] Univers 08:03:23 09:17:49 Visit Santiago 74438.1.1 ity of 3.104.2.7 [place] .3.899715 Medica l .8 [place] 2020-08-06 2020-08-06 Outpatient R [facility] [id number] Univers 08:30:00 08:30:00 SANTIAGO barbosa of [facility] 2020-07-14 2020-07-14 Outpatient R [facility] [id number] Univers 09:30:00 09:30:00 GADIEL rodas [facility] 2020-07-14 2020-07-14 Travel 1.2.840.1 1.2.171.165 4977 2575 Univers 00:00:00 00:00:00 05474.1.1 350.1.13.10 ity of 3.104.2.7 4.[place]7.3.698 [place] .3.883328 084.8 Medica l .8 [place] 2020-07-14 2020-07-14 Orders Doctor 1.2.840.4 [id number] Univers 00:00:00 00:00:00 Only Unassigned, 07597.1.1 ity of [place] 3.104.2.7 [place] .3.320916 Medica l .8 [place] 2020-06-16 2020-06-16 Outpatient [facility] [id number] Univers 08:00:00 08:00:00 GADIEL rodas [facility] 2020-06-06 2020-06-06 Telephone [place], 1.2.840.9 [id number] [id number] Univers 00:00:00 00:00:00 Santiago 52325.1.1 ity of 3.104.2.7 [place] .3.156567 Medica l .8 Branch 2020-06-04 2020-06-04 Enamel Drier Santiago Cardenas 1.2.840.1 [id number] Univers 09:31:58 09:40:12 Visit [place] 70158.1.1 ity of 3.104.2.7 [place] .3.538451 Medica l .8 Branch 2020-06-04 2020-06-04 Office FRANCO Cardenas 1.2.510.792 4097 9729 Univers 08:13:41 09:28:25 Visit Santiago [facility] 350.1.13.10 i ty of CLINICS 4.2.7.2.686 Yomialeshia isreal 768.5137785 [facility] 089 Branch 2020-06-04 2020-06-04 Outpatient R [facility] [id number] Univers 08:30:00 08:30:00 SANTIAGO ity of [facility] 2020-06-04 2020-06-04 Orders Doctor 1.2.840.3 [id number] 079 Univers 00:00:00 00:00:00 Only Unassigned, 07095.1.1 ity of [place] 3.104.2.7 [place] .3.550926 Medica l .8 [place] 2020-05-19 2020-05-19 Telephone [place], 1.2.840.7 [id number] 804 [id number] Univers 00:00:00 00:00:00 Santiago 16102.1.1 ity of 3.104.2.7 [place] .3.305718 Medica l .8 [place] 2020-04-24 2020-04-24 Telephone [place], 1.2.840.8 [id number] 799 [id number] Univers 00:00:00 00:00:00 [place] 72723.1.1 ity of 3.104.2.7 [place] .3.422562 Medica l .8 [place] 2020-04-14 2020-04-14 Outpatient R [facility] [id number] Univers 09:00:00 09:00:00 SANTIAGO ity of [facility] 2020-04-14 2020-04-14 Telephone [place], 1.2.840.2 [id number] 797 [id number] Univers 00:00:00 00:00:00 Santiago 44410.1.1 ity of 3.104.2.7 [place] .3.115078 Medica l .8 [place] 2020-03-31 2020-03-31 Outpatient R EAST, [facility] [id number] Univers 08:30:00 08:30:00 SANTIAGO barbosa [facility] 2020-03-03 2020-03-03 Outpatient R SELF, [facility] [id number] Univers 08:00:00 08:00:00 GADIEL rodas [facility] 2020-03-03 2020-03-03 Outpatient R SELF, [facility] [id number] Univers 08:00:00 08:00:00 GADIEL rodas [facility] 2020-03-03 2020-03-03 Travel 1.2.840.1 1.2.071.295 0569 5480 Univers 00:00:00 00:00:00 54106.1.1 350.1.13.10 ity of 3.104.2.7 4.2.7.3.698 [place] .3.528265 084.8 Medica l .8 [place] 2020-02-06 2020-02-06 Telephone [place], 1.2.840.6 [id number] 781 [id number] Univers 00:00:00 00:00:00 [place] 56187.1.1 ity of 3.104.2.7 [place] .3.564817 Medica l .8 [place] 2020-01-26 2020-01-26 Emergency Caridad, 1.2.840.9 [id number] 779 81039 Univers 10:03:00 13:05:00 Cynise 34164.1.1 ity of 3.104.2.7 [place] .3.764752 Medica l .8 Branch 2020-01-26 2020-01-26 Travel 1.2.840.1 1.2.189.295 8447 0120 Univers 00:00:00 00:00:00 83342.1.1 350.1.13.10 ity of 3.104.2.7 4.2.7.3.698 [place] .3.284743 084.8 Medica l .8 [place] 2020-01-25 2020-01-25 Outpatient R EAST, [facility] [id number] Univers 08:30:00 08:30:00 SANTIAGO ity of [facility] 2020-01-25 2020-01-25 Telemedici [place], 1.2.840.2 [id number] Univers 07:36:49 08:06:49 ne Visit [place] 35125.1.1 ity of 3.104.2.7 [place] .3.830134 Medica l .8 [place] 2020-01-16 2020-01-16 Outpatient R EAST, [facility] [id number] Univers 08:00:00 08:00:00 SANTIAGO ity [facility] 2020-01-16 2020-01-16 Telephone East, 1.2.840.2 [id number] Univers 00:00:00 00:00:00 [place] 26309.1.1 ity of 3.104.2.7 [place] .3.516385 Medica l .8 [place] 2020-01-14 2020-01-14 Outpatient R SELF, [facility] [id number] Univers 08:00:00 08:00:00 GADIEL familia o f [facility] 2019-12-31 2019-12-31 Outpatient R SELF, [facility] [id number] Univers 08:45:00 08:45:00 GADIEL barbosa o f [facility] 2019-10-17 2019-10-17 Outpatient R EAST, [facility] [id number] Univers 08:30:00 08:30:00 SANTIAGO ity [facility] 2019-10-12 2019-10-12 Outpatient R EAST, [facility] [id number] Univers 13:00:00 13:00:00 SANTIAGO ity [facility] 2019-10-12 2019-10-12 Telemedici [place], 1.2.840.6 [id number] Univers 07:38:30 08:08:30 ne Visit [place] 75108.1.1 ity of 3.104.2.7 [place] .3.493838 Medica l .8 [place] 2019-10-08 2019-10-08 Outpatient R SELF, [facility] [id number] Univers 10:15:00 10:15:00 GADIEL ity o f [facility] 2019-10-03 2019-10-03 Jorge Hagen, 1.2.840.6 [id number] Univers 00:00:00 00:00:00 Management Michael Corbin 22855.1.1 i ty of 3.104.2.7 [place] .3.212807 Medica l .8 [place] 2019-09-27 2019-09-27 Telephone [place], 1.2.840.9 [id number] [id number] Univers 00:00:00 00:00:00 Santiago 91268.1.1 ity of 3.104.2.7 [place] .3.862118 Medica l .8 [place] 2019-09-04 2019-09-04 Refill [place], 1.2.840.0 [id number] Univers 00:00:00 00:00:00 Santiago 84090.1.1 ity of 3.104.2.7 [place] .3.762471 Medica l .8 [place] 2019-07-24 2019-07-24 Outpatient R EAST, [facility] [id number] Univers 08:30:00 08:30:00 SANTIAGO ity of [facility] 2019-07-17 2019-07-17 Outpatient R EAST, [facility] [id number] Univers 10:00:00 10:00:00 SANTIAGO ity of [facility] 2019-06-15 2019-06-15 Telephone [place], 1.2.840.2 [id number] [id number] Univers 00:00:00 00:00:00 [place] 56374.1.1 ity of 3.104.2.7 [place] .3.196662 Medica l .8 [place] 2019-06-13 2019-06-13 Telephone Team, [facility] 1.2.840.1 [id number] Univers 00:00:00 00:00:00 Health 67903.1.1 ity of [place].2.7 [place] .3.727272 Medica l .8 [place] 2019-05-10 2019-05-10 Refill Ronald, 1.2.840.7 [id number] Univers 00:00:00 00:00:00 [place] 07080.1.1 ity of 3.104.2.7 [place] .3.428542 Medica l .8 Branch 2019-05-09 2019-05-09 Refill [place], 1.2.840.1 [id number] Univers 00:00:00 00:00:00 [place] 61346.1.1 ity of 3.104.2.7 [place] .3.283066 Medica l .8 [place] 2019-04-30 2019-04-30 Outpatient R RODO, [facility] [id number] Univers 10:15:00 10:33:05 GADIEL barbosa o f [facility] 2019-04-18 2019-04-18 Enamel Drier [place] Cardenas 1.2.840.1 [id number] Univers 10:00:39 10:44:31 Visit [facility] 03154.1.1 ity of 3.104.2.7 [place] .3.059012 Medica l .8 [place] 2019-04-18 2019-04-18 Outpatient R RONALD [facility] [id number] Univers 10:00:00 10:44:31 SANTIAGO ity of [facility] 2019-04-18 2019-04-18 Office [place], 1.2.840.2 [id number] 005 Univers 08:27:44 09:53:27 Visit Santiago 41427.1.1 ity of 3.104.2.7 [place] .3.760912 Medica l .8 [place] 2019-04-18 2019-04-18 Orders Doctor 1.2.840.1 [id number] Univers 00:00:00 00:00:00 Only Unassigned, 22446.1.1 ity of [place] 3.104.2.7 [place] .3.280866 Medica l .8 [place] 2019-04-11 2019-04-11 Refill Ronald, 1.2.840.5 [id number] Univers 00:00:00 00:00:00 Santiago 50450.1.1 ity of 3.104.2.7 [place] .3.755477 Medica l .8 Branch 2019-04-09 2019-04-09 Refill [place], 1.2.840.0 [id number] Univers 00:00:00 00:00:00 Santiago 22159.1.1 ity of 3.104.2.7 [place] .3.706325 Medica l .8 Branch 2019-04-03 2019-04-03 Telephone Team, [facility] 1.2.840.5 [id number] Univers 00:00:00 00:00:00 Health 16186.1.1 ity of [place].104.2.7 [place] .3.715791 Medica l .8 Branch 2019-03-27 2019-03-27 Telephone Self, 1.2.840.4 [id number] 723 [id number] Univers 00:00:00 00:00:00 Gadiel 30418.1.1 ity of 3.104.2.7 [place] .3.757046 Medica l .8 Branch 2019-01-17 2019-01-17 Office Ronald, 1.2.840.7 [id number] Univers 07:37:21 10:32:51 Visit Santiago 05301.1.1 ity of 3.104.2.7 [place] .3.830327 Medica l .8 Branch 2019-01-04 2019-01-12 Office Eveline Hansen 1.2.840.4 [id number] Univers 11:19:32 11:08:05 Visit Mariela 98828.1.1 ity of 3.104.2.7 [place] .3.765102 Medica l .8 Branch 2019-01-10 2019-01-10 Telephone Stanislav, 1.2.840.5 [id number] 709 [id number] Univers 00:00:00 00:00:00 Eladio Inman 16751.1.1 ity of 3.104.2.7 [place] .3.379938 Medica l .8 Branch 2018-12-18 2018-12-18 Office Geraldine, 1.2.840.3 [id number] Univers 08:48:45 09:13:43 Visit Leyda 72021.1.1 it y of 3.104.2.7 [place] .3.766583 Medica l .8 [place] 2018-10-30 2018-10-30 Telephone East, 1.2.840.6 [id number] [id number] Univers 00:00:00 00:00:00 Santiago 69147.1.1 ity of 3.104.2.7 [place] .3.987877 Medica l .8 [place] 2018-10-23 2018-10-23 Orders Doctor 1.2.840.8 [id number] Univers 00:00:00 00:00:00 Only Unassigned, 74910.1.1 ity of [place] 3.104.2.7 [place] .3.257142 Medica l .8 [place] 2018-10-23 2018-10-23 Nurse Selvin, 1.2.840.9 [id number] Univers 00:00:00 00:00:00 Triage Stefanie 66763.1.1 ity of 3.104.2.7 [place] .3.909347 Medica l .8 [place] 2018-10-23 2018-10-23 Telephone Self, 1.2.840.3 [id number] Univers 00:00:00 00:00:00 Gadiel 31161.1.1 ity of 3.104.2.7 [place] .3.920336 Medica l .8 [place] 2018-10-20 2018-10-20 Telephone Self, 1.2.840.5 [id number] [id number] Univers 00:00:00 00:00:00 Gadiel 30860.1.1 ity of 3.104.2.7 [place] .3.258798 Medica l .8 [place] Results Test Description Test Time Test Comments Results Result Comments Source COMP. METABOLIC PANEL (99194) 2022-05-06 22:42:55 Test Item Value Reference Range Interpretation Comme nts NA (test code = 3169075370) 137 mmol/L 135-145 K (test code = 4023950799) 3.2 mmol/L 3.5-5.0 L CL (test code = 6385786360) 100 mmol/L 98-108 CO2 TOTAL (test code = 0064369072) 23 mmol/L 23-31 AGAP (test code = 1895389050) 2-16 BUN (test code = 0507216546) 41 mg/dL 7-23 H GLUCOSE (test code = 5428402478) 98 mg/dL 70-110 CREATININE (test code = 1.55 mg/dL 0.50-1.04 H 2639104676) TOTAL BILI (test code = 0.8 mg/dL 0.1-1.2 7451575413) CALCIUM (test code = 4985192325) 8.3 mg/dL 8.6-10.6 L T PROTEIN (test code = 9855841867) 6.9 g/dL 6.3-8.2 ALBUMIN (test code = 0358999978) 3.9 g/dL 3.5-5.0 ALK PHOS (test code = 4990300729) 89 U/L 34-122 ALTv (test code = 1742-6) 101 U/L 5-35 H AST(SGOT) (test code = 3607077617) 203 U/L 13-40 H eGFR (test code = 1774029722) mL/min/1.73m2 KYLE (test code = KYLE) Association [...] tests). Lab Interpretation (test code = Abnormal 16061-8) [facility] WITH [id number] 22:33:52 Test Item Value Reference Range Interpretation [...] RDW-SD (test code = 46.3 fL 39.0-49.9 34223-8) RDW-CV (test code = 13.5 % 12.0-15.5 788-0) PLT (test code = See_Comment L [Automated 777-3) message] The sy stem which generated this result transmitted reference range : 166 - 358 10*3/ ?L. The reference r abbey was not used to interpret this result as normal/abnormal . MPV (test code = 9.5 fL 9.5-12.9 91434-6) NRBC/100 WBC (test See_Comment [Automat ed code = 2682258616) message] The system which generated this result transmitted reference range : 0.0 - 10.0 /100 WBCs. The refer ence range was not u sed to interpret th is result as normal/abnormal . NRBC x10^3 (test code See_Comment [Auto mated = 5979683366) message] The s ystem which generated this result transmitted reference range : 10*3/?L. The reference range was not used to interpret this result as normal/abnormal . GRAN MAT (NEUT) % 58.3 % (test code = 770-8) IMM GRAN % (test code 0.80 % = 0016452675) LYMPH % (test code = 28.1 % 736-9) MONO % (test code = 12.0 % 5905-5) EOS % (test code = 0.5 % 713-8) BASO % (test code = 0.3 % 706-2) GRAN MAT x10^3(ANC) 2.29 10*3/uL 1.88-7.09 (test code = 6592841711) IMM GRAN x10^3 (test 0.03 10*3/uL 0.00-0.06 code = 1320519630) LYMPH x10^3 (test code 1.10 10*3/uL 1.32-3.29 L = 731-0) MONO x10^3 (test code 0.47 10*3/uL 0.33-0.92 = 742-7) EOS x10^3 (test code = 0.03-0.39 L 711-2) BASO x10^3 (test code 0.01-0.07 = 704-7) Lab Interpretation Abnormal (test code = 59280-0) [facility]NA, K, CL, CO2, GLUCOSE, BUN, CREATININE, CA)2022-04-22 21:43:42 Test Item Value Reference Range Interpretation Comments NA (test code = 142 mmol/L 135-145 0848629648) K (test code = 3.5 mmol/L 3.5-5.0 7697515542) CL (test code = 106 mmol/L 98-108 9342773433) CO2 TOTAL (test code = 26 mmol/L 23-31 2102494936) AGAP (test code = 2-16 2599168212) BUN (test code = 29 mg/dL 7-23 H 9176504465) GLUCOSE (test code = 84 mg/dL 70-110 2962531183) CREATININE (test code = 1.16 mg/dL 0.50-1.04 H 7322576244) CALCIUM (test code = 8.2 mg/dL 8.6-10.6 L 5707487344) eGFR (test code = mL/min/1.73m2 7169662287) KYLE (test code = KYLE) Association of [...] tests). Lab Interpretation Abnormal (test code = 55840-2) [facility] WITH [id number] 21:33:01 Test Item Value Reference Range Interpretation [...] (test code = 50.7 fL 39.0-49.9 H 76346-7) RDW-CV (test code = 14.6 % 12.0-15.5 788-0) PLT (test code = See_Comment L [Automated 777-3) message] The sy stem which generated this result transmitted reference range : 166 - 358 10*3/ ?L. The reference r abbey was not used to interpret this result as normal/abnormal . MPV (test code = 8.8 fL 9.5-12.9 L 60490-2) NRBC/100 WBC (test See_Comment [Automat ed code = 7349819941) message] The system which generated this result transmitted reference range : 0.0 - 10.0 /100 WBCs. The refer ence range was not u sed to interpret th is result as normal/abnormal . NRBC x10^3 (test code See_Comment [Auto mated = 9705949571) message] The s ystem which generated this result transmitted reference range : 10*3/?L. The reference range was not used to interpret this result as normal/abnormal . GRAN MAT (NEUT) % 70.9 % (test code = 770-8) IMM GRAN % (test code 0.50 % = 8486746517) LYMPH % (test code = 17.4 % 736-9) MONO % (test code = 9.0 % 5905-5) EOS % (test code = 1.7 % 713-8) BASO % (test code = 0.5 % 706-2) GRAN MAT x10^3(ANC) 4.60 10*3/uL 1.88-7.09 (test code = 7963667827) IMM GRAN x10^3 (test 0.03 10*3/uL 0.00-0.06 code = 2380963020) LYMPH x10^3 (test code 1.13 10*3/uL 1.32-3.29 L = 731-0) MONO x10^3 (test code 0.58 10*3/uL 0.33-0.92 = 742-7) EOS x10^3 (test code = 0.11 10*3/uL 0.03-0.39 711-2) BASO x10^3 (test code 0.03 10*3/uL 0.01-0.07 = 704-7) Lab Interpretation Abnormal (test code = 94383-8) [facility] CULTURE [id number] 06:01:07 Test Item Value Reference Range Interpretation Comments Blood Culture-Aerobic No organisms No growth Previo us (test code = 13357-6) isolated prelim inary verified result was Culture [...] Culture-Anaerobic isolated preliminar y (test code = 06172-4) verifi ed result was Culture In Progress [...] CDT Lab Interpretation Normal (test code = 18800-6) [facility] CULTURE [id number] 06:01:07 Test Item Value Reference Range Interpretation Comments Blood Culture-Aerobic No organisms No growth Previo us (test code = 24666-9) isolated prelim inary verified result was Culture [...] Culture-Anaerobic isolated preliminar y (test code = 01754-8) verifi ed result was Culture In Progress [...] CDT Lab Interpretation Normal (test code = 96452-4) [facility] [id number] 06:01:07 Test Item Value Reference Range Interpretation Comments Blood Culture-Aerobic No organisms No growth Previo us (test code = 50251-8) isolated prelim inary verified result was Culture [...] Culture-Anaerobic isolated preliminar y (test code = 56630-0) verifi ed result was Culture In Progress [...] CDT Lab Interpretation Normal (test code = 24557-2) [facility] [facility] [id number] 10:49:10 Test Item Value Reference Range Interpretation Comments NT-proBNP (test code 2660 pg/mL See_Comment H [Autom ated = 8110583498) message] The system which generated this result transmitted reference range : <=125. The reference range was not used to interpret this result as normal/abnormal . KYLE (test code = KYLE) Biotin has been reported to cause a negative bias, interpret results relative to patient's use of biotin. Lab Interpretation Abnormal (test code = 68943-8) [facility] [id number] 10:49:10 Test Item Value Reference Range Interpretation Comments NT-proBNP (test code 2660 pg/mL See_Comment H [Autom ated = 7931635724) message] The system which generated this result transmitted reference range : <=125. The reference range was not used to interpret this result as normal/abnormal . KYLE (test code = KYLE) Biotin has been reported to cause a negative bias, interpret results relative to patient's use of biotin. Lab Interpretation Abnormal (test code = 97068-1) [facility] (NA, K, CL, CO2, GLUCOSE, BUN, CREATININE, CA)2022-02-15 10:44:07 Test Item Value Reference Range Interpretation Comments NA (test code = 134 mmol/L 135-145 L 4155201301) K (test code = 3.2 mmol/L 3.5-5 L 9931156862) CL (test code = 98 mmol/L 98-108 7308633841) CO2 TOTAL (test code = 27 mmol/L 23-31 9944567627) AGAP (test code = 2-16 5844534931) BUN (test code = 19 mg/dL 7-23 3774711642) GLUCOSE (test code = 102 mg/dL 70-110 6758396592) CREATININE (test code = 0.95 mg/dL 0.5-1.04 6315642331) CALCIUM (test code = 8.5 mg/dL 8.6-10.6 L 7388506309) eGFR (test code = mL/min/1.73m2 5669581022) KYLE (test code = KYLE) Association of [...] tests). Lab Interpretation Abnormal (test code = 64365-9) [facility]2022-09-26 10:44:07 Test Item Value Reference Range Interpretation Comments MAGNESIUM (test code = 3323714736) 1.8 mg/dL 1.7-2.4 Lab Interpretation (test code = Normal 07022-4) [facility]22-[facility]26 10:44:07 Test Item Value Reference Range Interpretation Comments MAGNESIUM (test code = 9274109337) 1.8 mg/dL 1.7-2.4 Lab Interpretation (test code = Normal 99712-8) [facility] (NA, K, CL, CO2, GLUCOSE, BUN, CREATININE, CA)2022-02-15 10:44:07 Test Item Value Reference Range Interpretation Comments NA (test code = 134 mmol/L 135-145 L 4637356808) K (test code = 3.2 mmol/L 3.5-5.0 L 0210860991) CL (test code = 98 mmol/L 98-108 2089989302) CO2 TOTAL (test code = 27 mmol/L 23-31 9831746828) AGAP (test code = 2-16 5707894339) BUN (test code = 19 mg/dL 7-23 2138639203) GLUCOSE (test code = 102 mg/dL 70-110 2988727563) CREATININE (test code = 0.95 mg/dL 0.50-1.04 7513089533) CALCIUM (test code = 8.5 mg/dL 8.6-10.6 L 6530785186) eGFR (test code = mL/min/1.73m2 4797338114) KYLE (test code = KYLE) Association of [...] tests). Lab Interpretation Abnormal (test code = 36764-9) [facility] WITH [id number] 10:12:06 Test Item Value Reference Range Interpretation [...] RDW-SD (test code = 47.8 fL 39-49.9 77976-9) RDW-CV (test code = 15.2 % 12-15.5 788-0) PLT (test code = See_Comment L [Automated 777-3) message] The sy stem which generated this result transmitted reference range : 166 - 358 10*3/ ?L. The reference r abbey was not used to interpret this result as normal/abnormal . MPV (test code = 8.9 fL 9.5-12.9 L 24469-6) NRBC/100 WBC (test See_Comment [Automat ed code = 6777721811) message] The system which generated this result transmitted reference range : 0.0 - 10.0 /100 WBCs. The refer ence range was not u sed to interpret th is result as normal/abnormal . NRBC x10^3 (test code See_Comment [Auto mated = 2253345213) message] The s ystem which generated this result transmitted reference range : 10*3/?L. The reference range was not used to interpret this result as normal/abnormal . GRAN MAT (NEUT) % 65.9 % (test code = 770-8) IMM GRAN % (test code 0.30 % = 4928383357) LYMPH % (test code = 21.0 % 736-9) MONO % (test code = 10.1 % 5905-5) EOS % (test code = 2.4 % 713-8) BASO % (test code = 0.3 % 706-2) GRAN MAT x10^3(ANC) 2.49 10*3/uL 1.88-7.09 (test code = 6479476217) IMM GRAN x10^3 (test 0-0.06 code = 3776323325) LYMPH x10^3 (test code 0.79 10*3/uL 1.32-3.29 L = 731-0) MONO x10^3 (test code 0.38 10*3/uL 0.33-0.92 = 742-7) EOS x10^3 (test code = 0.09 10*3/uL 0.03-0.39 711-2) BASO x10^3 (test code 0.01-0.07 = 704-7) Lab Interpretation Abnormal (test code = 70337-4) [facility] WITH [id number] 10:12:06 Test Item Value Reference Range Interpretation [...] RDW-SD (test code = 47.8 fL 39.0-49.9 55454-0) RDW-CV (test code = 15.2 % 12.0-15.5 788-0) PLT (test code = See_Comment L [Automated 777-3) message] The sy stem which generated this result transmitted reference range : 166 - 358 10*3/ ?L. The reference r abbey was not used to interpret this result as normal/abnormal . MPV (test code = 8.9 fL 9.5-12.9 L 04006-1) NRBC/100 WBC (test See_Comment [Automat ed code = 2497084317) message] The system which generated this result transmitted reference range : 0.0 - 10.0 /100 WBCs. The refer ence range was not u sed to interpret th is result as normal/abnormal . NRBC x10^3 (test code See_Comment [Auto mated = 8054727513) message] The s ystem which generated this result transmitted reference range : 10*3/?L. The reference range was not used to interpret this result as normal/abnormal . GRAN MAT (NEUT) % 65.9 % (test code = 770-8) IMM GRAN % (test code 0.30 % = 5753661541) LYMPH % (test code = 21.0 % 736-9) MONO % (test code = 10.1 % 5905-5) EOS % (test code = 2.4 % 713-8) BASO % (test code = 0.3 % 706-2) GRAN MAT x10^3(ANC) 2.49 10*3/uL 1.88-7.09 (test code = 2598183810) IMM GRAN x10^3 (test 0.00-0.06 code = 9082688821) LYMPH x10^3 (test code 0.79 10*3/uL 1.32-3.29 L = 731-0) MONO x10^3 (test code 0.38 10*3/uL 0.33-0.92 = 742-7) EOS x10^3 (test code = 0.09 10*3/uL 0.03-0.39 711-2) BASO x10^3 (test code 0.01-0.07 = 704-7) Lab Interpretation Abnormal (test code = 83220-2) [facility] WITH [id number] 11:18:28 Test Item Value Reference Range Interpretation [...] RDW-SD (test code = 49.5 fL 39-49.9 89923-6) RDW-CV (test code = 15.5 % 12-15.5 788-0) PLT (test code = See_Comment L [Automated 777-3) message] The sy stem which generated this result transmitted reference range : 166 - 358 10*3/ ?L. The reference r abbey was not used to interpret this result as normal/abnormal . MPV (test code = 11.4 fL 9.5-12.9 82757-3) IPF % (test code = 8.7 % 1.3-7.7 H Platelet count 7943302587) measured by fluorescence method. NRBC/100 WBC (test See_Comment [Automat ed code = 0994937935) message] The system which generated this result transmitted reference range : 0.0 - 10.0 /100 WBCs. The refer ence range was not u sed to interpret th is result as normal/abnormal . NRBC x10^3 (test code See_Comment [Auto mated = 1221747851) message] The s ystem which generated this result transmitted reference range : 10*3/?L. The reference range was not used to interpret this result as normal/abnormal . GRAN MAT (NEUT) % 62.0 % (test code = 770-8) IMM GRAN % (test code 0.80 % = 7351183764) LYMPH % (test code = 22.2 % 736-9) MONO % (test code = 9.6 % 5905-5) EOS % (test code = 5.1 % 713-8) BASO % (test code = 0.3 % 706-2) GRAN MAT x10^3(ANC) 2.21 10*3/uL 1.88-7.09 (test code = 8585459439) IMM GRAN x10^3 (test 0.03 10*3/uL 0-0.06 code = 9637622235) LYMPH x10^3 (test code 0.79 10*3/uL 1.32-3.29 L = 731-0) MONO x10^3 (test code 0.34 10*3/uL 0.33-0.92 = 742-7) EOS x10^3 (test code = 0.18 10*3/uL 0.03-0.39 711-2) BASO x10^3 (test code 0.01-0.07 = 704-7) POLYCHROMASIA (test 2+ See_Comment [Automa arpit code = 60459-1) message] The system which generated this result [...] . Lab Interpretation Abnormal (test code = 61575-2) [facility] METABOLIC PANEL (NA, K, CL, CO2, GLUCOSE, BUN, CREATININE, CA)2022-02-13 10:39:07 Test Item Value Reference Range Interpretation Comments NA (test code = 136 mmol/L 135-145 2073238690) K (test code = 4.1 mmol/L 3.5-5 2720703823) CL (test code = 102 mmol/L 98-108 5929741388) CO2 TOTAL (test code = 27 mmol/L 23-31 5833711343) AGAP (test code = 2-16 1924466935) BUN (test code = 22 mg/dL 7-23 5525491700) GLUCOSE (test code = 94 mg/dL 70-110 1635486717) CREATININE (test code = 0.94 mg/dL 0.5-1.04 5430492098) CALCIUM (test code = 8.1 mg/dL 8.6-10.6 L 1786493835) eGFR (test code = mL/min/1.73m2 3393618962) KYLE (test code = KYLE) Association of [...] tests). Lab Interpretation Abnormal (test code = 56486-6) [facility]2022-[facility]-12 01:50:10 Test Item Value Reference Range Interpretation Comments Height (test code = in 7603881894) Weight (test code = lbs 4543169082) Systolic BP (test code mmHg = 0546057681) Diastolic BP (test code mmHg = 0830917990) Heart Rate (test code = bpm 6178791837) BSA (test code = 1.85 m2 5357309939) IVS (test code = 1.22 cm 9909250338) Interventricular Septum 1.22 cm Diastolic Thickness by 2D (test code = 0639891) LVIDD (test code = 5.00 cm 7465218143) Left Ventricular End 117.9 mL Diastolic Volume by Teichholz Method (test code = 5955718) LVPWD (test code = 1.22 cm 8732783629) PW (test code = 1.22 cm 0.6-1.1 6804094376) EF(Teich) (test code = 74.60 % 6779597519) LVIDS (test code = 2.80 cm 1220914397) Left Ventricular End 29.9 mL Systolic Volume by Teichholz Method (test code = 5955722) FS (test code = 44 % 0341761639) EF - 2D (test code = 74.60 % 83110649) LVOT diameter (test 2.16 cm code = 1346510094) LVOT area (test code = 3.70 cm2 0554348543) Ao root diam (test code 3.40 cm = 5174607459) Aortic root (test code 3.4 cm = 2781715289) Ao root annulus (test 3.4 cm code = 6712929377) LA size (test code = 3.4 cm 0355459388) TR Peak Spencer (test code 330.0 cm/s = 9615415709) Triscuspid Valve mmHg Regurgitation Peak Gradient (test code = 0568592858) PV REGURGITATION PEAK mmHg GRADIENT (test code = 1624984279) PI dec slope (test code 137.20 cm/s2 = 3236540835) LAV(MOD-sp4) (test code 102.90 mL = 6625093549) MV Peak E Spencer (test 84.1 cm/s code = 1126585480) MV Peak A Spencer (test 40.1 cm/s code = 9789333855) E/A ratio (test code = ratio 5532615615) MV valve area p 1/2 3.70 cm2 method (test code = 5484712095) MV dec slope (test code 413.00 cm/s2 = 4370698475) MV P1/2t max spencer (test 83.70 cm/s code = 4774974699) MV Prop V (test code = 41.80 cm/s 6588161640) Tapse (test code = 1.83 cm 8469143539) LVOT stroke volume 96.90 cm3 (test code = 3157832771) LVOT peak spencer (test 125.5 cm/s code = 3550850062) LVOT mn grad (test code mmHg = 8591888790) AV LVOT peak gradient mmHg (test code = 1771373919) LVOT peak VTI (test 26.4 cm code = 8121409838) LV V1 mean (test code = 78.10 cm/s 8278063658) Aortic valve mean 103.7 cm/s velocity (test code = 0381390829) Ao peak spencer (test code 165.6 cm/s = 4256145815) Ao VTI (test code = 37.2 cm 2453399665) AV area by cont VTI 2.6 cm2 (test code = 2795673859) AV area peak spencer (test 2.8 cm2 code = 0998559106) Ao max PG (test code = 11.00 mm[Hg] 7419614634) AV peak gradient (test mmHg code = 7710188519) AV valve area (test 2.60 cm2 code = 9861675359) AV mean gradient (test mmHg code = 6515335778) LA Volume Index (BP) 55.2 mL/m2 (test code = 3474476884) LA volume (BP) (test 102.1 mL code = 1837812461) LAV(MOD-sp2) (test code 86.10 mL = 2498524834) A2C EF (test code = 61.20 % 1300603165) EF(sp2-el) (test code = 61.60 % 3121938714) SV(MOD-sp2) (test code 47.10 mL = 7602066576) LV Diastolic Volume 70.7 mL (BP) (test code = 2096880937) A4C EF (test code = 53.00 % 0129810453) EF(MOD-bp) (test code = 56.70 % 4715656867) EF(sp4-el) (test code = 53.90 % 4421530026) LV Systolic Volume (BP) 30.6 mL (test code = 2314669921) SV(MOD-bp) (test code = 40.10 mL 3732453967) SV(MOD-sp4) (test code 32.40 mL = 4672512003) SV(sp4-el) (test code = 33.10 mL 4853769612) EF (test code = 6622794454) Left Ventricular Stroke 40.1 mL Volume by 2-D Biplane-MOD (test code = 8604495) LV Diastolic Volume 38.2 mL/m2 Index (BP) (test code = 7702921096) LV Systolic Volume 16.5 mL/m2 Index (BP) (test code = 4565104909) Radiology Study observation (narrative) (test code = 80664-1) KYLE (test code = KYLE) ?Left?Ventricle: Left [...] wall motion is normal. [facility] [id number] 05:45:01 Test Item Value Reference Interpretation Comments Range TROPONIN I (test See_Comment [Automated code = 9733888747) message] The system which generated this result [...] biotin. Lab Interpretation Normal (test code = 06876-5) [facility] [id number] 05:41:40 Test Item Value Reference Range Interpretation Comments NT-proBNP (test code 4250 pg/mL See_Comment H [Autom ated = 6216443328) message] The system which generated this result transmitted reference range : <=125. The reference range was not used to interpret this result as normal/abnormal . KYLE (test code = KYLE) Biotin has been reported to cause a negative bias, interpret results relative to patient's use of biotin. Lab Interpretation Abnormal (test code = 87228-6) [facility] THRM[facility]AS [id number] 05:35:21 Test Item Value Reference Range Interpretation [...] seconds. Lab Interpretation Normal (test code = 33439-2) [facility] TH[facility] [id number] 05:35:21 Test Item Value Reference Range Interpretation [...] seconds. Lab Interpretation Normal (test code = 58432-0) [facility]evillePROTHROMBIN TIME / [id number] 05:33:21 Test Item Value Reference Range Interpretation [...] tions. Lab Interpretation (test Normal code = 43618-6) [facility] MET[facility]OLIC PANEL (89735)2022-02-11 05:33:21 Test Item Value Reference Range Interpretation Comments NA (test code = 137 mmol/L 135-145 2557360739) K (test code = 4.3 mmol/L 3.5-5 7287894827) CL (test code = 103 mmol/L 98-108 1614072880) CO2 TOTAL (test code = 25 mmol/L 23-31 7055337211) AGAP (test code = 2-16 1238526317) BUN (test code = 19 mg/dL 7-23 7247739724) GLUCOSE (test code = 120 mg/dL 70-110 H 3654147359) CREATININE (test code = 1.15 mg/dL 0.5-1.04 H 1423972183) TOTAL BILI (test code = 0.9 mg/dL 0.1-1.2 7514906981) CALCIUM (test code = 8.9 mg/dL 8.6-10.6 6194502502) T PROTEIN (test code = 6.6 g/dL 6.3-8.2 3393113899) ALBUMIN (test code = 4.0 g/dL 3.5-5 5381295099) ALK PHOS (test code = 73 U/L 34-122 2107196347) ALTv (test code = 18 U/L 5-35 1742-6) AST(SGOT) (test code = 31 U/L 13-40 8326695398) eGFR (test code = mL/min/1.73m2 9136115540) KYLE (test code = KYLE) Association of [...] tests). Lab Interpretation Abnormal (test code = 48926-0) [facility]. METABOLIC PANEL (03031)2022-02-11 05:33:21 Test Item Value Reference Range Interpretation Comments NA (test code = 137 mmol/L 135-145 9680543901) K (test code = 4.3 mmol/L 3.5-5.0 4871728462) CL (test code = 103 mmol/L 98-108 5813302837) CO2 TOTAL (test code = 25 mmol/L 23-31 7832847837) AGAP (test code = 2-16 2568966689) BUN (test code = 19 mg/dL 7-23 7360516126) GLUCOSE (test code = 120 mg/dL 70-110 H 3697493874) CREATININE (test code = 1.15 mg/dL 0.50-1.04 H 4610140752) TOTAL BILI (test code = 0.9 mg/dL 0.1-1.3 3957005643) CALCIUM (test code = 8.9 mg/dL 8.6-10.6 9797804805) T PROTEIN (test code = 6.6 g/dL 6.3-8.2 4822311285) ALBUMIN (test code = 4.0 g/dL 3.5-5.0 0400549932) ALK PHOS (test code = 73 U/L 34-122 6300161446) ALTv (test code = 18 U/L 5-35 1742-6) AST(SGOT) (test code = 31 U/L 13-40 9474557548) eGFR (test code = mL/min/1.73m2 3610784761) KYLE (test code = KYLE) Association of [...] tests). Lab Interpretation Abnormal (test code = 56536-6) [facility] / [id number] 05:33:21 Test Item Value Reference Range Interpretation Comments PROTIME PATIENT (test See_Comment [Auto mated message] code = 5964-2) The system [employer] generated this result transmitted ref erence range: 12.0 - 1 4.7 Seconds. The re ference range was not u sed to interpret this result as normal/abnor mal. INR (test code = 6301-6) Nor mal INR <1.1; Warfarin Therap eutic range 2.0 to 3. 0 or 2.5 to 3.5, dep ending upon the indica tions. Lab Interpretation (test Normal code = 15232-9) [facility] WITH [id number] 05:14:37 Test Item Value Reference Range Interpretation [...] RDW-SD (test code = 47.9 fL 39-49.9 69416-4) RDW-CV (test code = 14.9 % 12-15.5 788-0) PLT (test code = See_Comment L [Automated 777-3) message] The sy stem which generated this result transmitted reference range : 166 - 358 10*3/ ?L. The reference r abbey was not used to interpret this result as normal/abnormal . MPV (test code = 9.1 fL 9.5-12.9 L 06238-0) NRBC/100 WBC (test See_Comment [Automat ed code = 6485838820) message] The system which generated this result transmitted reference range : 0.0 - 10.0 /100 WBCs. The refer ence range was not u sed to interpret th is result as normal/abnormal . NRBC x10^3 (test code See_Comment [Auto mated = 3406193893) message] The s ystem which generated this result transmitted reference range : 10*3/?L. The reference range was not used to interpret this result as normal/abnormal . GRAN MAT (NEUT) % 78.5 % (test code = 770-8) IMM GRAN % (test code 0.20 % = 4987731621) LYMPH % (test code = 11.6 % 736-9) MONO % (test code = 8.4 % 5905-5) EOS % (test code = 1.1 % 713-8) BASO % (test code = 0.2 % 706-2) GRAN MAT x10^3(ANC) 3.45 10*3/uL 1.88-7.09 (test code = 0790156152) IMM GRAN x10^3 (test 0-0.06 code = 8401123374) LYMPH x10^3 (test code 0.51 10*3/uL 1.32-3.29 L = 731-0) MONO x10^3 (test code 0.37 10*3/uL 0.33-0.92 = 742-7) EOS x10^3 (test code = 0.05 10*3/uL 0.03-0.39 711-2) BASO x10^3 (test code 0.01-0.07 = 704-7) Lab Interpretation Abnormal (test code = 21438-4) [facility] Coronavirus 2019 [place]0456-14-23 18:08:00 Test Item Value Reference Range Interpretation [...] det ection of nucleic acids f rom wzrRDZA-IvA-9 v irus and diagnosis of SA RS-CoV-2 virusinfection. It is an Emergency Use Authorization ( EUA) testauthorized by the U.S. FDA. BASIC METABOLIC [id number] 09:37:00 Test Item Value Reference Range Interpretation [...] = 9.0 mg/dL 8.0-10.5 N CA) PROTHROMBIN [id number] 09:32:00 Test Item Value Reference Range Interpretation [...] (to prevent recurrent infar ct). 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 [facility] - XR CHEST 1 [id number] 00:00:00 [facility] : 1955 Sex: F FAX: Carmenza Olivera DO [phone] [place]: St: ADM FAX: Mike Scales MD [phone] FAX: Bahman Chopra [phone] Name: MARJAN FLEMING [facility] : 1955 Age/S: 66/F [address] [place] [address] Unit #: [id number] Loc: KWABENA Bernstein [address] Phys: Bahman Chopra Acct: [id number] Dis Date: Status: ADM IN PHONE #: [phone] Exam Date: 06/17/2021 1320 FAX #: [phone] Reason: WATCHMAN EXAMS: CPT CODE: [id number] XR CHEST 1 V 06557 PROCEDURE INFORMATION: Exam: XR Chest Exam date [...] Chopra Technologist: RT Taylor(R) Trnscrd Date/Time/By: 06/17/2021 (4327) : By:[email or web address] Orig Print D/T: S: 06/17/2021 (3863) PAGE 1 Signed ReportCOVID 19 Asymptomatic IH [...] high or waivedcomplexit y tests. BASIC METABOLIC [id number] 11:37:00 Test Item Value Reference Range Interpretation [...] code = 9.0 mg/dL 8.0-10.5 N CA) [id number] 11:37:00 Test Item Value Reference Range Interpretation Comments PREALBUMIN (test code = PREALB) 24.3 mg/dL 16.0-40.0 N PROTHROMBIN [id number] 11:03:00 Test Item Value Reference Range Interpretation [...] (to prevent recurrent infar ct). CBC W/AUTO [id number] 10:59:00 Test Item Value Reference Range Interpretation [...] 3/uL 0.0-0.1 N NRBC#) - CHEST 2 [id number] 00:00:00 [facility] : 1955 Sex: F FAX: Carmenza Kelly DO [phone] [place]: St: PRE FAX: Mike Scales MD [phone] Name: MARJAN FLEMING [facility] : 1955 Age/S: 66/F [address] [place] [address] Unit #: [id number] Loc: [place], [place] [address]Jkov: Mike Lund MD Acct: [id number] Dis Date: Status: PRE [facility] PHONE #: [phone] Exam Date: 06/16/2021 1120 FAX #: [phone] Reason: PREOP EXAMS: CPT CODE: [id number] XR CHEST 2 V 17151 PROCEDURE INFORMATION: Exam: XR Chest Exam date [...] Mike Lund MD Technologist: Danielle Nix RT(R) [facility] Date/Time/By: 06/16/2021 (1137) : By: [email or web address] Orig Print D/T: S: 06/16/2021 (6833) PAGE 1 Signed ReportGastrointestinal [id number] 04:35:05 Test Item Value Reference Interpretation Comments [...] Rotavirus PCR (test Not Detected code = 7262724) Salmonella PCR (test Not Detected code = [...] Not Detected (test code = 7124) [facility] edbvxud0113-32-15 19:30:47 Test Item Value Reference Range Interpretation Comments Case number (test [id number] code = 0515013) Surgical pathology See link below for PDF report (test code = Lab Report 2255) Result status (test This is Supplemental code = 0096684) Report for [id number] [facility] CenterGeaxvncxMAREDJJMZX4085-77-78 16:31:00 Test Item Value Reference Range Interpretation Comments POC Activated Clotting Time (test code 153 s = POC Activated Clotting Time) [facility] CenterZwlecsdZHVFBHOSXI7162-91-66 16:31:00 Test Item Value Reference Range Interpretation Comments POC Activated Clotting Time (test code 153 s = POC Activated Clotting Time) [facility] CenterShuvjwyNQTLSLODSA2914-13-55 16:31:00 Test Item Value Reference Range Interpretation Comments POC Activated Clotting Time (test code 153 s = POC Activated Clotting Time) [facility] CenterTwzhudiFCRDWJZHJJ6352-84-59 16:31:00 Test Item Value Reference Range Interpretation Comments POC Activated Clotting Time (test code 153 s = POC Activated Clotting Time) [facility] CenterHlsvfnxGJJPZFLCFN9498-10-01 16:31:00 Test Item Value Reference Range Interpretation Comments POC Activated Clotting Time (test code 153 s = POC Activated Clotting Time) [facility] CenterDmhnowqPMFXFUSXBZ8764-09-32 16:31:00 Test Item Value Reference Range Interpretation Comments POC Activated Clotting Time (test code 153 s = POC Activated Clotting Time) [facility] [id number] 16:31:00 Test Item Value Reference Range Interpretation Comments POC Activated Clotting Time (test code 153 s = POC Activated Clotting Time) [facility] [id number] 14:37:00 Test Item Value Reference Range Interpretation Comments POC Activated Clotting Time (test code 454 s = POC Activated Clotting Time) [facility] [id number] 14:37:00 Test Item Value Reference Range Interpretation Comments POC Activated Clotting Time (test code 454 s = POC Activated Clotting Time) [facility] [id number] 14:37:00 Test Item Value Reference Range Interpretation Comments POC Activated Clotting Time (test code 454 s = POC Activated Clotting Time) [facility] [id number] 14:37:00 Test Item Value Reference Range Interpretation Comments POC Activated Clotting Time (test code 454 s = POC Activated Clotting Time) [facility] CenterRjxapxrDTSHPFMVXD5671-00-55 14:37:00 Test Item Value Reference Range Interpretation Comments POC Activated Clotting Time (test code 454 s = POC Activated Clotting Time) [facility] CenterUnhmrjvUVRMUWYUKP1868-81-15 14:37:00 Test Item Value Reference Range Interpretation Comments POC Activated Clotting Time (test code 454 s = POC Activated Clotting Time) [facility] CenterJrimpnsYZKOXYHKKP0815-60-31 14:37:00 Test Item Value Reference Range Interpretation Comments POC Activated Clotting Time (test code 454 s = POC Activated Clotting Time) [place] 891401-04-09 14:13:00 Test Item Value Reference Range Interpretation Comments POC Activated Clotting Time (test code 354 s = POC Activated Clotting Time) [facility] CenterXprelrfQAMMORXPVY3721-04-49 14:13:00 Test Item Value Reference Range Interpretation Comments POC Activated Clotting Time (test code 354 s = POC Activated Clotting Time) [facility] CenterCcemftoRUTHTYGGAC4165-61-28 14:13:00 Test Item Value Reference Range Interpretation Comments POC Activated Clotting Time (test code 354 s = POC Activated Clotting Time) [facility] CenterYunlldbAZRTGNELJM6299-62-02 14:13:00 Test Item Value Reference Range Interpretation Comments POC Activated Clotting Time (test code 354 s = POC Activated Clotting Time) [facility] CenterJbcryweHOSRCRADCY9669-33-50 14:13:00 Test Item Value Reference Range Interpretation Comments POC Activated Clotting Time (test code 354 s = POC Activated Clotting Time) [facility] CenterWvuujbwGYINGAITFR7168-18-09 14:13:00 Test Item Value Reference Range Interpretation Comments POC Activated Clotting Time (test code 354 s = POC Activated Clotting Time) [facility] CenterGuzickhEKBUGSLECF7598-08-29 14:13:00 Test Item Value Reference Range Interpretation Comments POC Activated Clotting Time (test code 354 s = POC Activated Clotting Time) [facility] HYANYFQ3490-81-26 10:37:00Negative (08/29/20 5:37 AM) [facility] KOOCC0065-22-83 10:37:44727Bmbpohct HermannCHEM PANEL 2020-08-29 10:37:0028[facility] HermannCHEM KBTIX1602-45-93 10:37:001.01[facility] HermannCHEM SPEKF9856-69-22 10:37:68077Yqgvkrup HermannCHEM IXLIT5707-90-72 10:37:003.8[facility] HermannCHEM MSQOG6915-39-69 10:37:34081Dkflsrae HermannCHEM SUABL4379-06-69 10:37:0028[facility] HermannCHEM IDYTO2137-17-39 10:37:009.8 [facility]annCHE[facility] GVGQP7762-50-08 10:37:0011.8[facility] HermannCHEM PANEL 2020-08-29 10:37:0059[facility] HermannCHEM QEMNO3994-76-36 10:37:002.9[facility] XwltrveZZOXJSQTTE6935-44-42 10:37:006.8[facility] VitqbcbDRDCLZPXFX7192-17-66 10:37:004.47[facility] ZbzpuyzBOQGANUFMF3105-43-42 10:37:0010.6[facility] NVEJVKKEIZ6212-59-36 10:37:0034.0[facility] EasbkatAECLYQTNLK7304-14-39 10:37:00 76.1[facility] TwwrpkxNROIYFUWDK8572-72-16 10:37:00 Test Item Value Reference Range Interpretation Comments MCH (test code = MCH) 23.8 pg 27.0-31.0 [facility] QabdexaITWHQYBYHN5763-22-17 10:37:0031.3[facility] HermannHEMATOLOGY 2020-08-29 10:37:0018.2[facility] RsarljyLVHJHWEYLE2297-35-24 10:37:19181Trxkmekj DgtklanVKASCLOENL7133-83-07 10:37:007.5[facility] VkhhvjoIWWFCHNFOW1019-12-06 10:37:00 Test Item Value Reference Range Interpretation Comments PT (test code = PT) 12.8 s 12.0-14.7 [facility] YnicmayDWJXCUULUU9820-94-74 10:37:00 Test Item Value Reference Range Interpretation Comments INR (test code = INR) 0.97 1 0.85-1.17 [facility] RfpvrpgDFMPNJORDI5844-83-43 10:37:00 Test Item Value Reference Range Interpretation Comments PTT (test code = PTT) 25.0 s 22.9-35.8 [facility] QsfxkrwTEWCRIPOQG6044-24-13 10:37:0070.5[facility] HermannHEMATOLOGY 2020-08-29 10:37:0018.8[facility] LjhzxzkDSYARYXBLZ8612-53-45 10:37:009.5[facility] XwqnopaFUFHDMZZJU2124-90-05 10:37:000.9[facility] YcovjuzJPTLIMRRLQ1052-60-40 10:37:000.3[facility] PkkxjscCAJEUXWPVU1330-72-77 10:37:004.8[facility] JCFVOIJCDM1481-32-71 10:37:001.3[facility] KsbnzonILTEFLAYJL1196-99-64 10:37:000.6 [facility] GakmsreDLUVFMTOHT1395-91-88 10:37:000.1[facility] HermannHEMATOLOGY 2020-08-29 10:37:001+ *ABN*(08/29/20 5:37 AM)[facility] IyynufaAEATVWUKHN4824-03-31 10:37:00Not Detected (08/29/20 5:37 AM)[facility]annBLOOD BANK RESULTS 2020-08-29 10:37:00Negative (08/29/20 5:37 AM)[facility] HermannCHEM OZGLP1840-60-40 10:37:44578Hquycdyi HermannCHEM TWGXX5097-65-56 10:37:0028[facility] HermannCHEM BREWQ2490-24-18 10:37:001.01[facility] HermannCHEM WSHKZ7843-80-46 10:37:04383 [facility] HermannCHEM GHGAY8878-32-89 10:37:003.8[facility] HermannCHEM PANEL 2020-08-29 10:37:69228Tuwpeogl HermannCHEM TSDLL2461-92-52 10:37:0028[facility] HermannCHEM ETCGH7724-96-40 10:37:009.8[facility] HermannCHEM CBMLO3786-69-87 10:37:0011.8[facility] HermannCHEM PXUKF4209-48-43 10:37:0059[facility] HermannCHEM MITBD1276-69-54 10:37:002.9[facility] OgjnsfvDSHAKIXXYM1789-13-33 10:37:006.8 [facility] EvhahflMSXCZTYAKP4010-86-23 10:37:004.47[facility] HermannHEMATOLOGY 2020-08-29 10:37:0010.6[facility] AyefxtdPHTXVYAQFH6936-53-95 10:37:0034.0[facility] NuvqvmtDLXENUXQBR6269-55-28 10:37:0076.1[facility] CnveamvOFWLQNNOBA7899-66-76 10:37:00 Test Item Value Reference Range Interpretation Comments MCH (test code = MCH) 23.8 pg 27.0-31.0 [facility] EestvcqICZCHMBTGP9761-02-10 10:37:0031.3[facility] HermannHEMATOLOGY 2020-08-29 10:37:0018.2[facility] PfndbsvGGBESDRNWN6455-35-12 10:37:08167Bbusupir MsfmhgyRBDLSYFHBW3643-17-00 10:37:007.5[facility] JhfyysjUTCTJIXQLL5586-40-34 10:37:00 Test Item Value Reference Range Interpretation Comments PT (test code = PT) 12.8 s 12.0-14.7 [facility] YqzswnpPJDNNHEYKG9347-46-55 10:37:00 Test Item Value Reference Range Interpretation Comments INR (test code = INR) 0.97 1 0.85-1.17 [facility] QatdeldUMRNCGYSZX6606-63-20 10:37:00 Test Item Value Reference Range Interpretation Comments PTT (test code = PTT) 25.0 s 22.9-35.8 [facility] ZgndpmnQITXLFHJEW8484-23-70 10:37:0070.5[facility] HermannHEMATOLOGY 2020-08-29 10:37:0018.8[facility] HrgrbxrRCZYGAQWHA1428-87-08 10:37:009.5[facility] PnjyuxuLXXNZWXKPS6674-89-29 10:37:000.9[facility] LapsrwdDCVTLVAVDY3880-67-83 10:37:000.3[facility] MfmpekcFWMXVIWLJW9847-08-12 10:37:004.8[facility] BYCAOXVIXD6122-67-38 10:37:001.3[facility] RkpwvnwXNBOUPCJXW2061-04-97 10:37:000.6 [facility] OqkvihgFYTXKGEXCE8737-59-39 10:37:000.1[facility] HermannHEMATOLOGY 2020-08-29 10:37:001+ *ABN*(08/29/20 5:37 AM)[facility] PclvbbkZRYIBEFGWB3523-53-44 10:37:00Not Detected (08/29/20 5:37 AM)[facility] HermannBLOOD BANK RESULTS 2020-08-29 10:37:00Negative (08/29/20 5:37 AM)[facility] HermannCHEM HYUPT0468-66-53 10:37:25813Dhfukljj HermannCHEM HMQDP8737-98-15 10:37:0028[facility] HermannCHEM GEQZU9773-03-51 10:37:001.01[facility] HermannCHEM OIATQ9009-49-95 10:37:39875 [facility] HermannCHEM ESTWQ2644-73-23 10:37:003.8[facility] HermannCHEM PANEL 2020-08-29 10:37:47793Vmslldsc HermannCHEM JGBKJ7841-78-90 10:37:0028[facility] HermannCHEM YESVT7013-64-04 10:37:009.8[facility] HermannCHEM TWUEY4111-69-51 10:37:0011.8[facility] HermannCHEM PHFVW1436-39-61 10:37:0059[facility] HermannCHEM SEPDA2242-01-55 10:37:002.9[facility] CaxqazwYHKIVQFOAB9439-71-02 10:37:006.8 [facility] WkuzeovFEGXHTYZUG4964-52-70 10:37:004.47[facility] HermannHEMATOLOGY 2020-08-29 10:37:0010.6[facility] NivydjcBTUSZOBRYF9990-07-57 10:37:0034.0[facility] ZyfmmdwRTOCYTIZSP7768-88-79 10:37:0076.1[facility] YcvzxvkWLYMVOAPWG7538-08-62 10:37:00 Test Item Value Reference Range Interpretation Comments MCH (test code = MCH) 23.8 pg 27.0-31.0 [facility] AnhvsntOFZVLLTJDU6790-29-79 10:37:0031.3[facility] HermannHEMATOLOGY 2020-08-29 10:37:0018.2[facility] MeudhtiUTCWHIUTAQ1400-23-32 10:37:61588Qpknlsgw YmixgaeJZVLLOYOPW8139-41-78 10:37:007.5[facility] KmyktbjAVPLOAXWER4125-86-52 10:37:00 Test Item Value Reference Range Interpretation Comments PT (test code = PT) 12.8 s 12.0-14.7 [facility] RjzflqoHVAFUAQDOO5781-65-54 10:37:00 Test Item Value Reference Range Interpretation Comments INR (test code = INR) 0.97 1 0.85-1.17 [facility] PwmneloIZWWDEUZXD0611-03-15 10:37:00 Test Item Value Reference Range Interpretation Comments PTT (test code = PTT) 25.0 s 22.9-35.8 [facility] PmbncgwVCMOEQXDFA4350-73-88 10:37:0070.5[facility] HermannHEMATOLOGY 2020-08-29 10:37:0018.8[facility] CncnttoPCYGUFETOZ0792-55-74 10:37:009.5[facility] HvdkbdbZFZAXBQSKN6595-84-75 10:37:000.9[facility] YhohrizCXCBPSLSWR7128-68-90 10:37:000.3[facility] NdtqozbBKNDADKWBV7465-86-37 10:37:004.8[facility] UWVBOEERQU6196-83-95 10:37:001.3[facility] IhjybwgIQMZQYMHDA4225-79-42 10:37:000.6 [facility] IcofnmaFDOKQLQSMR7307-50-21 10:37:000.1[facility] HermannHEMATOLOGY 2020-08-29 10:37:001+ *ABN*(08/29/20 5:37 AM)[facility] DgnaqprFOYWTORYVP7455-18-52 10:37:00Not Detected (08/29/20 5:37 AM)[facility] HermannBLOOD BANK RESULTS 2020-08-29 10:37:00Negative (08/29/20 5:37 AM)[facility] HermannCHEM YTKAP4443-16-06 10:37:92393Paeooisy HermannCHEM RPNBN2467-74-91 10:37:0028[facility] HermannCHEM YICCG2964-37-12 10:37:001.01[facility] HermannCHEM EFAHL9681-35-17 10:37:44794 [facility] HermannCHEM FGYDN8084-27-18 10:37:003.8[facility] HermannCHEM PANEL 2020-08-29 10:37:39877Rahjpgia HermannCHEM XXJRH6885-93-53 10:37:0028[facility] HermannCHEM IGEKA5112-71-09 10:37:009.8[facility] HermannCHEM JXSRT0406-37-10 10:37:0011.8[facility] HermannCHEM EYIKO6053-83-15 10:37:0059[facility] HermannCHEM KCVQA1087-79-18 10:37:002.9[facility] LbjrzyoTGVMTVXYKS2647-31-95 10:37:006.8 [facility] WsbryqlZOGCJAIONT0755-99-84 10:37:004.47[facility] HermannHEMATOLOGY 2020-08-29 10:37:0010.6[facility] BzjewbwDMKKJYIKQF4139-60-95 10:37:0034.0[facility] SycqpeyLAYXLMLVRW9887-57-50 10:37:0076.1[facility] BifxoytRGPPOJFXZE1776-12-12 10:37:00 Test Item Value Reference Range Interpretation Comments MCH (test code = MCH) 23.8 pg 27.0-31.0 [facility] VocjpxyEEJIPBVJOQ9534-46-52 10:37:0031.3[facility] HermannHEMATOLOGY 2020-08-29 10:37:0018.2[facility] BprkslwCHLJMUWQDA4213-71-21 10:37:74715Wprhxlli MwnjssbTXZHDCLSLO9011-07-54 10:37:007.5[facility] IpoqyysDZQSSTJMYG0480-50-23 10:37:00 Test Item Value Reference Range Interpretation Comments PT (test code = PT) 12.8 s 12.0-14.7 [facility] AndgrixZIYNUZQTRX0914-16-86 10:37:00 Test Item Value Reference Range Interpretation Comments INR (test code = INR) 0.97 1 0.85-1.17 [facility] YkozadrSAARHJSMZP3350-34-57 10:37:00 Test Item Value Reference Range Interpretation Comments PTT (test code = PTT) 25.0 s 22.9-35.8 [facility] QvdjnphPFFLRBNVKO9210-03-20 10:37:0070.5[facility] HermannHEMATOLOGY 2020-08-29 10:37:0018.8[facility] YovhekwEOTKZTPPLN0570-81-86 10:37:009.5[facility] RyuhcthKCNJBBRSFX3776-70-40 10:37:000.9[facility] SgqankfTHBPYBWQTV3884-91-84 10:37:000.3[facility] VmnhlgeUSMUEPANQS9221-61-59 10:37:004.8[facility] TSBDNOVASB2057-05-48 10:37:001.3[facility] QqujfdbFPIMOJSXMA1457-91-91 10:37:000.6 [facility] HvqzdluZMYOMLNWQS0085-36-70 10:37:000.1[facility] HermannHEMATOLOGY 2020-08-29 10:37:001+ *ABN*(08/29/20 5:37 AM)[facility] ItafjkdILRWEETFOM6699-65-41 10:37:00Not Detected (08/29/20 5:37 AM)[facility] HermannBLOOD BANK RESULTS 2020-08-29 10:37:00Negative (08/29/20 5:37 AM)[facility] HermannCHEM FGOPJ0688-64-75 10:37:40546Zdmkoeio HermannCHEM QVMHS2708-15-66 10:37:0028[facility] HermannCHEM KRMNU1265-96-35 10:37:001.01[facility] HermannCHEM VVJMT4931-35-49 10:37:78917 [facility] HermannCHEM EIUAJ8808-39-15 10:37:003.8[facility] HermannCHEM PANEL 2020-08-29 10:37:53174Ecnssgvj HermannCHEM OGNQU8751-73-08 10:37:0028[facility] HermannCHEM VWGHN2112-33-24 10:37:009.8[facility] HermannCHEM CXTHM4280-13-24 10:37:0011.8[facility] HermannCHEM JJZOP6594-92-47 10:37:0059[facility] HermannCHEM YFQHZ6039-86-09 10:37:002.9[facility] JdchyrzCUKRQXOEJS9127-66-91 10:37:006.8 [facility] RsbaobyEVVTPPMMBQ9560-62-61 10:37:004.47[facility] HermannHEMATOLOGY 2020-08-29 10:37:0010.6[facility] ZndokxjMFOAOWJMUU3106-63-35 10:37:0034.0[facility] NbjkwtrQGNSZGMMRI2208-28-82 10:37:0076.1[facility] AvqgpctUUXVYJRCDD4747-63-11 10:37:00 Test Item Value Reference Range Interpretation Comments MCH (test code = MCH) 23.8 pg 27.0-31.0 [facility] LoglngyMQONRTYGMQ7204-78-63 10:37:0031.3[facility] HermannHEMATOLOGY 2020-08-29 10:37:0018.2[facility] FdgkodaUHOCSQATCE7586-60-59 10:37:23955Czvjcnza QpvtxtqERSOYUXHFE4227-04-24 10:37:007.5[facility] ZfssocfLPPRMKQFXF2212-93-51 10:37:00 Test Item Value Reference Range Interpretation Comments PT (test code = PT) 12.8 s 12.0-14.7 [facility] QgsqxxlUDNTXVYJKU6909-33-80 10:37:00 Test Item Value Reference Range Interpretation Comments INR (test code = INR) 0.97 1 0.85-1.17 [facility] WipxbwtFYRLGWJEYS7665-60-43 10:37:00 Test Item Value Reference Range Interpretation Comments PTT (test code = PTT) 25.0 s 22.9-35.8 [facility] QxktvwoLHJYVTARCJ4117-77-99 10:37:0070.5[facility] HermannHEMATOLOGY 2020-08-29 10:37:0018.8[facility] YnyjrwbSLBCFJTZQZ2881-74-23 10:37:009.5[facility] AvbqphcPXUIWLRZIQ1157-05-35 10:37:000.9[facility] EixbagoKOEVJRBNGH7960-56-99 10:37:000.3[facility] WjlrldvSOEUYVZMLC9839-22-43 10:37:004.8[facility] WBOPMUTSER4079-22-00 10:37:001.3[facility] SxtfrvvYDENXZUGTS9712-99-00 10:37:000.6 [facility] PpzftjeYLMAVMSMID3251-90-74 10:37:000.1[facility] HermannHEMATOLOGY 2020-08-29 10:37:001+ *ABN*(08/29/20 5:37 AM)[facility] VvzyjugSBAWHRYFWF5936-58-01 10:37:00Not Detected (08/29/20 5:37 AM)[facility] HermannBLOOD BANK RESULTS 2020-08-29 10:37:00Negative (08/29/20 5:37 AM)[facility] HermannCHEM WFLSY4875-39-14 10:37:64412Vjdahfmb HermannCHEM HOHXW9257-21-36 10:37:0028[facility] HermannCHEM CSKOH1847-00-34 10:37:001.01[facility] HermannCHEM FSJTJ2034-07-75 10:37:20324 [facility] HermannCHEM YJICK1557-33-98 10:37:003.8[facility] HermannCHEM PANEL 2020-08-29 10:37:98648Tewzuxus HermannCHEM KJMPR5323-07-06 10:37:0028[facility] HermannCHEM VZWMW1060-41-37 10:37:009.8[facility] HermannCHEM ICLNM6419-07-11 10:37:0011.8[facility] HermannCHEM MVEON6674-95-17 10:37:0059[facility] HermannCHEM HUJTP1429-91-24 10:37:002.9[facility] WrompfzWYDQDNUICF9975-24-77 10:37:006.8 [facility] UdhyszaYVNNOGHEQS3481-60-25 10:37:004.47[facility] HermannHEMATOLOGY 2020-08-29 10:37:0010.6[facility] BnkdmvsOYGMPBPXPJ2978-60-61 10:37:0034.0[facility] WwavwyiKIWQINILDO4006-05-51 10:37:0076.1[facility] EqmsodaPNEKVCSAQT1539-40-53 10:37:00 Test Item Value Reference Range Interpretation Comments MCH (test code = MCH) 23.8 pg 27.0-31.0 [facility] OhjddafBSMNFXBILH8047-80-65 10:37:0031.3[facility] HermannHEMATOLOGY 2020-08-29 10:37:0018.2[facility] IotheaxRVFRNQIMSX4527-42-40 10:37:23815Nyrrwfms UwfivmlJJZEGFYSDL8221-65-15 10:37:007.5[facility] DqlqsjkNJYWYVNTAA8110-87-07 10:37:00 Test Item Value Reference Range Interpretation Comments PT (test code = PT) 12.8 s 12.0-14.7 [facility] GbyoebvRNDZHZQRDS7974-59-61 10:37:00 Test Item Value Reference Range Interpretation Comments INR (test code = INR) 0.97 1 0.85-1.17 [facility] WrsyxmbJMCRCTNNEP9199-51-95 10:37:00 Test Item Value Reference Range Interpretation Comments PTT (test code = PTT) 25.0 s 22.9-35.8 [facility] OlerdbxLPHZXYVGXS9158-93-55 10:37:0070.5[facility] HermannHEMATOLOGY 2020-08-29 10:37:0018.8[facility] YeircnhIQFSKXZJYC6274-53-81 10:37:009.5[facility] OjntqogSBLICBFDEW8539-19-24 10:37:000.9[facility] TpbpkfwWHAADMTGUD1511-72-26 10:37:000.3[facility] ThqavxlYIZRRLOZKR0203-06-71 10:37:004.8[facility] PLSCFBVNVB6733-05-52 10:37:001.3[facility] WoxjexcASLRPDUWGH9643-79-12 10:37:000.6 [facility] TcfmjhgZFRWKARVZI3893-67-03 10:37:000.1[facility] HermannHEMATOLOGY 2020-08-29 10:37:001+ *ABN*(08/29/20 5:37 AM)[facility] ZtwfuqoMZWALXCKQU5415-13-25 10:37:00Not Detected (08/29/20 5:37 AM)[facility] HermannBLOOD BANK RESULTS 2020-08-29 10:37:00Negative (08/29/20 5:37 AM)[facility] HermannCHEM UTNCZ3597-22-42 10:37:71616Hrefqfow HermannCHEM AEEYE7102-05-49 10:37:0028[facility] HermannCHEM YMPZY6097-52-29 10:37:001.01[facility] HermannCHEM VDCGX3092-88-56 10:37:88734 [facility] HermannCHEM EHASX7265-83-49 10:37:003.8[facility] HermannCHEM PANEL 2020-08-29 10:37:60673Pndzysta HermannCHEM BCYMF1615-16-62 10:37:0028[facility] HermannCHEM AOFRQ7368-37-36 10:37:009.8[facility] HermannCHEM QPGCT9284-05-86 10:37:0011.8[facility] HermannCHEM KSPVP0162-02-44 10:37:0059[facility] HermannCHEM HFJWR7259-55-73 10:37:002.9[facility] JoxynsgTFUVCRSEDB4228-07-33 10:37:006.8 [facility] OajhwjwNMRJAXLNDU8595-14-38 10:37:004.47[facility] HermannHEMATOLOGY 2020-08-29 10:37:0010.6[facility] GcmsvefOFHOZKNGFV5403-47-42 10:37:0034.0[facility] ZcugqadHNNFQVDBEW9194-30-96 10:37:0076.1[facility] RzcmxexNDRHDQTBLA8412-29-92 10:37:00 Test Item Value Reference Range Interpretation Comments MCH (test code = MCH) 23.8 pg 27.0-31.0 [facility] RrntatwHKWURJJOPD5964-78-99 10:37:0031.3[facility] HermannHEMATOLOGY 2020-08-29 10:37:0018.2[facility] HetvsjnVXEXNXMTDH3864-38-32 10:37:66185Tafpkxpr EywnsjyLYUXFXRCML4693-46-59 10:37:007.5[facility] FedanukJNRWRCKBNK9238-37-49 10:37:00 Test Item Value Reference Range Interpretation Comments PT (test code = PT) 12.8 s 12.0-14.7 [facility] ShcmsatGUFLJJNSNJ2447-70-20 10:37:00 Test Item Value Reference Range Interpretation Comments INR (test code = INR) 0.97 1 0.85-1.17 [facility] IdpyfdiMXFUXSDDRN6667-26-06 10:37:00 Test Item Value Reference Range Interpretation Comments PTT (test code = PTT) 25.0 s 22.9-35.8 [facility] MgrshcnMVWQBOQSWY8344-26-18 10:37:0070.5[facility] HermannHEMATOLOGY 2020-08-29 10:37:0018.8[facility] DxyfotpKDBWVUAUGO7103-42-17 10:37:009.5[facility] ObmhvduZLESXORMXJ7565-56-60 10:37:000.9[facility] UuzttblYWBTELOGHZ7192-24-98 10:37:000.3[facility] HuflgawUYARXCEYEQ6042-35-05 10:37:004.8[facility] IEGDAVUIGE4594-87-88 10:37:001.3[facility] KdrsnwrXSTNDRPSGT1228-97-81 10:37:000.6 [facility] LakrrmeIBOXGAYDCX6147-50-22 10:37:000.1[facility] HermannHEMATOLOGY 2020-08-29 10:37:001+ *ABN*(08/29/20 5:37 AM)[facility] DbnewbpHYIJPMZOFI3671-15-56 10:37:00Not Detected (08/29/20 5:37 AM)[facility] IN SCICY1403-71-99 15:38:00 Test Item Value Reference Range Interpretation Comments FT (test code = CHTR) Not detected (qualifier Not Detected N value) FT (test code = Not detected (qualifier Not Detected N NGONO) value) FT (test code = TRVG) Not detected (qualifier Not Detected N value) [facility] BOLFJRIEHNJ7281-28-52 10:57:00 Test Item Value Reference Range Interpretation Comments Color (test code = UCOLR) Dk. Yellow Clarity (test code = UCLAR) Hazy Glucose (test code = UGLUC) NEGATIVE NEGATIVE N Bilirubin (test code = UBILI) NEGATIVE NEGATIVE N Ketones (test code = UKET) NEGATIVE NEGATIVE N Specific [place] (test code = 1.025 1.005-1.030 A USPGR) [...] = None Seen None Seen N URCRYS) [facility] Notes Date/Time Note Provider Source 2021-08-05 14:08:00-00:00 [id number] [place] [id number] PATIENT NAME: MARJAN FLEMING ADMIT DATE: 08/05/21 ACCOUNT NO: [id number] ROOM NO: AGE: 66 REPORT TYPE: eTRANSESOPHAGEAL ECHO REPORT SEX: F ADMITTING PHYSICIAN: ATTENDING PHYSICIAN:Mike Lund MD *[place] [address] Transesophageal Echocardiogram Patient: Marjan Fleming Study Date: 08/05/2021 BP: 158 / 92 Location: [facility] URN: [id number] : 1955 Age: 66 Height: / Gender: F Weight: / BMI/BSA: / *Ordering Physician: * Mike Lund *Interpreting Physician: * Ashely Mckeon MD *Tractor Operator Laser Leveling: Odessa Walters Indications: POST WATCHMAN. Study data: Consent: The [...] benzocaine spray. A transesophageal probe (SN: [id number]) was inserted by the attending tour actor without difficulty. L ocation: CV PREP. Patient [...] benzocaine spray. A transeso phageal probe (SN: [id number]) was inserted by the attending cardiolog ist [...] PATIENT NAME: MARJAN FLEMING 1 2021-06-24 11:18:00-00:00 [id number] [place] [address] PATIENT NAME: MARJAN FLEMING ADMIT DATE: 06/17/21 ACCOUNT NO: [id number] ROOM NO: ADDIS AGE: 66 REPORT TYPE: eTRANSESOPHAGEAL ECHO REPORT SEX: F ADMITTING PHYSICIAN:Mike Lund MD ATTENDING PHYSICIAN:Mike Lund MD *[place] [address] Transesophageal Echocardiogram for Watchman Patient: Marjan Fleming Study Date: 06/17/2021 BP: Location: [facility] URN: [id number] : 1955 Age: 66 Height: / [...] setup: The patient was brought to the [facility] in the fasting state.Intravenous access was obtained. Surface E CG leads, blood pressure measurements, and pulse oximetric signals were m onitored. Sedation. Sedation was administered by anesthesiology samreen rodas. Transesophageal echocardiography was performed. A transesophagea l probe was inserted by the anesthesiologist. Images were obtained using a [employer] cardiac ultrasound machine. Location: Catheterization laboratory. Isreal woodruff completion: The patient tolerated the procedure well. There were no complications. Findings Conclusions Summary: PATIENT NAME: MARJAN FLEMING 7 1. Study data: Transesophageal Echocardiogram fo marika Wynn. 2. Procedure narrative: Transesophageal echocard iography was performed. A transesophageal probe was inserted by the dayton sthesiologist. Images were obtained using a [employer] cardiac ultrasound mac dalton. Impressions: Patient with [...] stable. Right groin suture removed by this CQ DEVELOPER. No infect ion, bleeding, or hematoma. Dermabond applied and intact. Patient was provided with post-Watchman discharg e instructions. Patient is to follow up with PCP and tour actor in 1 t o 2 weeks post discharge. Patient is to follow up with tour actor for th e 45-day WESLEY, and for anticoagulation recommendation. Prepared and electronically signed by Ashely Mckeon MD 06/24/2021 11:18 Electronically Signed by Mike Lund MD on at 1118 PATIENT NAME: MARJAN FLEMING 7 2021-06-17 18:10:00-00:00 [id number] [place] [address] PATIENT NAME: MARJAN FLEMING ADMIT DATE: 06/17/21 ACCOUNT NO: [id number] ROOM NO: ADDIS AGE: 66 REPORT TYPE: eECHOCARDIOGRAM REPORT SEX: F ADMITTING PHYSICIAN:Mike Lund MD ATTENDING PHYSICIAN:Mike Lund MD *[place] [address] Limited Transthoracic Echocardiogram Patient: Marjan Fleming Study Date: 06/17/2021 BP: 117 / 82 Location: [facility] URN: [id number] : 1955 Age: 66 Height: 64 in / 162.6 cm Gender: F Weight: 210 lb / 95.5 kg BMI/BSA: 36.1 kg/m 2 / 2.12 m 2 *Ordering Physician: * Bahman Chopra *Interpreting Physician: * Kevin Merino MD *Tractor Operator Laser Leveling: * PurviTiarra boogie Indications: Post Watchman/Rule out pericardial effusion. Study data: Transthoracic echocardiogram, limite d study. Procedure: Transthoracic echocardiography was performed. Im age quality was adequate. Limited 2D and limited spectral Dopple r. Location: [facility]. Patient status: Outpatient. Study status: [...] 06/17/21 at 1810 PATIENT NAME: MARJAN FLEMING 48 2021-06-17 11:12:00-00:00 [facility]) Discharge Summary REPORT#:[id number] REPORT STATUS: Signed DATE:06/17/21 TIME: 1112 PATIENT: MARJAN FLEMING UNIT #: [id number] ROOM/BED: [place] [id number] : [birth year] AGE: 67 SEX: F ATTEND: René Lund MD ADM AUTHOR: Bahman Chopra * ALL edits or amendments must be made on the [employer]/computer document * PCP PCP Discharge to: home [...] stable. Right groin suture removed by this CQ DEVELOPER. No infect ion, bleeding, or hematoma. Dermabond applied and intact. Patient was provided with post-Watchman discharg e instructions. Patient is to follow up with PCP and tour actor in 1 to 2 we eks post discharge. Patient is to follow up with tour actor for th e 45-day WESLEY, and for [...] breath, lightheadedness, or dizzi ness to the tour actor. Dispo: It is medically necessary that patients [...] distress GI: soft, non-tender Extremities: moves all Neuro/MANAGER RESTAURANT: alert, oriented X 3 Skin: dry Wound/incision: Location: Right groin suture removed by this CQ DEVELOPER. No infect ion, bleeding, or hematoma. [...] Lund MD on 07/14 at 0946 RPT #:[id number] END OF REPORT 2021-06-17 09:43:00-00:00 [id number] [place] [address]208 PATIENT NAME: MARJAN FLEMING ADMIT DATE: 06/17/21 ACCOUNT NO: [id number] ROOM NO: ADDIS AGE: 66 REPORT TYPE: eELECTROCARDIOGRAM REPORT SEX: F ADMITTING PHYSICIAN:Mike Lund MD ATTENDING PHYSICIAN:Mike Lund MD Order: [id number] Test Reason : S/P WATCHMAN Test Date/Time [...] PM Referred By: Mike Lund Confirmed by:ARMANDO FISHER MD at 1807 PATIENT NAME: MARJAN FLEMING 7 2021-06-17 08:54:00-00:00 [id number] [place] [address] PATIENT NAME: MARJAN FLEMING ADMIT DATE: 06/17/21 ACCOUNT NO: [id number] ROOM NO: ADDIS AGE: 66 REPORT TYPE: CARDIAC CATHETERIZATION REPORT SEX: F ADMITTING PHYSICIAN:Mike Lund MD ATTENDING PHYSICIAN:Mike Lund MD PROCEDURE DATE: 06/17/2021 PROCEDURE PERFORMED: Left atrial appendage closu re using a 24 mm Watchman FLX closure device. ACCESS: Right femoral vein, 16-Afghan closed wit h [id number]-pr-[id number] suture. CAN RECONDITIONER: Mike Lund MD. SECONDARY TYPESETTER PERFORATOR OPERATOR: Kevin Merino MD. COMPLICATIONS: None. BLEEDING: Less [...] I accessed right femo ral vein, placed 8-Afghan [place] sheath. Subsequently, upgraded to 16-Afghan sheath and gave a partial dose of heparin, then took the SL1 sheat h into the SVC over a wire with Cosby needle inside, descended under the fluor oscopy [...] I removed the Watchman sheath and the 16-Afghan sheath and placed [id number] suture for hemostasis, then achieved a good hemo stasis. CONCLUSION: Left atrial appendage closure using a 24 mm Watchman FLX closure PATIENT NAME: MARJAN FLEMING 7 device. Dictated By: Mike Lund MD WT: CATH:GAYLE/RIKY/ALLA Conf#: [id number]/DID#: [id number] Authenticated by Mike Lund MD On 07/01/2021 12:30:01 PM Electronically Signed by Mike Lund MD on at 1230 PATIENT NAME: MARJAN FLEMING 7 2021-06-16 10:36:00-00:00 [id number] [place] [address] PATIENT NAME: MARJAN FLEMING ADMIT DATE: ACCOUNT NO: [id number] ROOM NO: AGE: 66 REPORT TYPE: eELECTROCARDIOGRAM REPORT SEX: F ADMITTING PHYSICIAN: ATTENDING PHYSICIAN:Mike Lund MD Order: [id number] Test Reason : PREOP Test Date/Time Stamp: [...]
[2022-12-19] MEDS ORDERED: DIPHENHYDRAMINE 50 MG/ML VIAL ONE ×2 (03:21→04:05)
[2022-12-19] MEDS ORDERED: ACETAMINOPHEN 500 MG TAB ONE (03:21)
[2022-12-19] MEDS ORDERED: ASPIRIN 81 MG CHEWABLE TABLET ONE (03:21)
[2022-12-19] MEDS ORDERED: cloNIDine HCL 0.1 MG TAB ONE (03:21)
[2022-12-19] MEDS ORDERED: METOCLOPRAMIDE 10 MG/2mL INJ ONE (03:22)
[2022-12-19] MEDS ORDERED: KETOROLAC 30 MG/ML INJ ONE (03:22)
[2022-12-19] MEDS ORDERED: NA CHLORIDE 0.9% 100 ML ONE (03:23)
[2022-12-19 04:03] LABS: Absolute Lymphocytes (CBC) 1.2 K/uL (0.7-4.9); Hematocrit 34.2 % (36.0-45.0); Lymphocytes % 23.3 % (15.3-44.8); MCV 82.2 fL (80-100); MPV 7.1 fL (7.6-11.3); RBC Red Blood Cell Count 4.17 M/uL (3.86-4.86)
[2022-12-19 04:23] LABS: Albumin 3.3 g/dL (3.4-5.0); Bilirubin Direct 0.1 mg/dL (0-0.2); Bilirubin Indirect, Calculated 0.3 mg/dL (0.2-0.8); Bilirubin Total 0.4 mg/dL (0.2-1.0); Magnesium 2.3 mg/dL (1.6-2.4); Potassium 3.9 mEq/L (3.5-5.1); Troponin High Sensitivity 13.6 pg/mL (<58.9)
--- NOTE | 2022-12-19 05:25 | EDPHYS ---
Physician Documentation [facility] Name: Marjan Kolb Age: 67 yrs Sex: Female : 1955 Arrival Date: 12/19/2022 Time: 02:45 Bed 2 Private MD: ED Physician Dion Randhawa HPI: 12/19 02:59 This 67 yrs old Female presents to ER via EMS with complaints of headache, sp4 chest pain . 03:01 Patient with extensive past medical history of COPD, HIV, angina, anxiety, atrial sp4 fibrillation, bipolar disorder, esophageal varices, hepatitis, hypertension, migraines, presents with EMS for cute onset of headache and also mild reported chest pain at 2:00 this morning. EMS reported that blood pressure was high prior to arrival. This is patient's third visit this month for similar complaints. Overall we see a record of 219 prior visits to the emergency room for various complaints. . Historical: - Allergies: 02:56 Azithromycin; vc1 02:56 Bactrim; vc1 02:56 butorphanol; vc1 02:56 Fentanyl; vc1 02:56 Reglan; vc1 02:56 Sulfa (Sulfonamide Antibiotics); vc1 02:56 TRIMETHOPRIM; vc1 - PMHx: 02:56 angina pectoris; Anxiety; Atrial fibrillation; Bipolar disorder; esophageal varicies; vc1 Hepatitis; HIV positive; Hypertensive disorder; Migraine; panic attack; - Immunization history:: Client reports receiving the 2nd dose of the Covid vaccine. - Social history:: Smoking status: Patient denies any tobacco usage or history of. - Family history:: not pertinent. ROS: 03:02 Constitutional: Negative for fever, chills, and weight loss, Cardiovascular: Negative sp4 for palpitations, and edema, positive for chest pains and headache Neuro: Negative for weakness, numbness, tingling, and seizure, positive for headache. 04:37 All other systems are negative. sp4 Exam: 03:02 Constitutional: This is a well developed, well nourished patient who is awake, alert, sp4 and in no acute distress. Head/Face: Normocephalic, atraumatic. Eyes: Pupils equal round and reactive to light, extra-ocular motions intact. Lids and lashes normal. Conjunctiva and sclera are not injected. Cornea within normal limits. Periorbital areas with no swelling, redness, or edema. ENT: Nares patent. No nasal discharge, no septal abnormalities noted. Tympanic membranes are normal and external auditory canals are clear. Oropharynx with no redness, swelling, or masses, exudates, or evidence of obstruction, uvula midline. Mucous membranes moist. Neck: Trachea midline, no thyromegaly or masses palpated, and no cervical lymphadenopathy. Supple, full range of motion without nuchal rigidity, or vertebral point tenderness. Chest/axilla: Normal chest wall appearance and motion. Nontender with no deformity. No lesions are appreciated. Cardiovascular: Regular rate and rhythm with a normal S1 and S2. No gallops, murmurs, or rubs. Normal PMI, no JVD. No pulse deficits. Respiratory: Lungs have equal breath sounds bilaterally, clear to auscultation and percussion. No rales, rhonchi or wheezes noted. No increased work of breathing, no retractions or nasal flaring. Abdomen/GI: Soft, non-tender, with normal bowel sounds. No distension or tympany. No guarding or rebound. No evidence of tenderness throughout. Back: No spinal tenderness. No costovertebral tenderness. Skin: Warm, dry with normal turgor. Normal color with no rashes, no lesions, and no evidence of cellulitis. MS/ Extremity: Pulses equal, no cyanosis. Neurovascular intact. Full, normal range of motion. Neuro: Awake and alert, GCS 15, oriented to person, place, time, and situation. Cranial nerves II-XII grossly intact. Motor strength 5/5 in all extremities. Sensory grossly intact. Psych: Awake, alert, with orientation to person, place and time. Behavior, mood, and affect are within normal limits 04:37 ECG was reviewed by the Attending Physician. EKG time 0306 there is normal sinus sp4 rhythm at the rate of 63 with sinus arrhythmia. Left ventricular hypertrophy. First-degree AV block. No ST elevation or depression. No ectopy Vital Signs: 02:51 BP 168 / 134; Pulse 70; Resp 14; Temp 97; Pulse Ox 100% ; Weight 81.65 kg; Height 5 ft. vc1 4 in. ; Pain 10/10; 04:10 BP 193 / 109; Pulse 58; Resp 19; Pulse Ox 98% on R/A; kd3 05:33 ll3 02:51 Body Mass Index 30.90 (81.65 kg, 162.56 cm) vc1 02:51 Pain Scale: Adult vc1 05:33 Pt refuses vital signs ll3 MDM: 03:49 Patient medically screened. sp4 04:28 ED course: Admission record 11/30/2022 - Medications: 1. Ceftriaxone. 2. Plavix. 3. sp4 Amlodipine 10 mg. 4. Metoprolol 100 b.i.d. 5. Spironolactone 25 b.i.d. 6. Valsartan 160 b.i.d. 7. Zoloft. 8. Trazodone. 9. Prednisone 10 t.i.d. Assessment And Plan: 1. Acute kidney injury secondary to prerenal, recovered, resolved. Challengedwith ARB, tolerated. 2. Hypertension, controlled, optimal. Continue current treatment. 3. Hyperkalemia, resolved. 4. Chronic obstructive pulmonary disease with exacerbation, currently stable. . ED course: Patient was admitted here at 11/24/2022 for hypertensive urgency with underlying primary hypertension and medication noncompliance, acute on chronic congestive heart failure, paroxysmal atrial fibrillation status post Watchman procedure, HIV and COPD. . 05:19 Data reviewed: vital signs, nurses notes, EMS record, old medical records, lab test sp4 result(s), EKG, radiologic studies, plain films. ED course: CLINICAL HISTORY: CHEST PAINS COMPARISON: 12/13/2022. TECHNIQUE: XR CHEST 1 VIEW 12/19/2022 12:00 AM CDT FINDINGS: The heart is enlarged. Lungs are clear without consolidation, atelectasis, mass or edema. There is no pleural effusion. There is no pneumothorax. There are no acute osseous findings. There are bilateral shoulder arthroplasty changes. IMPRESSION: Clear lungs.. 05:22 Differential Diagnosis altered mental status, COPD exacerbation, CHF exacerbation, sp4 angina pectoris, tension headache, cluster headache, migraine exacerbation. Consideration of Admission/Observation Escalation of care including admission/observation considered. ED course: Patient made several requests for opiate pain medications, her requests were refused. ED course: Based on exam and presentation patient is stable for discharge home at this time. 12/19 04:02 Order name: Basic Metabolic Panel; Complete Time: 05:12 EDMS 12/19 04:02 Order name: Liver (Hepatic) Function; Complete Time: 05:12 EDMS 12/19 04:02 Order name: Troponin High Sensitivity; Complete Time: 05:12 EDMS 12/19 04:02 Order name: NT PRO-BNP; Complete Time: 05:12 EDMS 12/19 04:02 Order name: Magnesium; Complete Time: 05:12 EDMS 12/19 04:02 Order name: CBC with Automated Diff; Complete Time: 04:18 EDMS 12/19 03:23 Order name: Chest Single View EDMS 12/19 02:56 Order name: EKG; Complete Time: 04:57 sp4 12/19 02:56 Order name: Cardiac monitoring; Complete Time: 03:21 sp4 12/19 02:56 Order name: EKG - Nurse/Tech; Complete Time: 03:21 sp4 12/19 02:56 Order name: IV Saline Lock; Complete Time: 03:51 sp4 12/19 02:56 Order name: Labs collected and sent; Complete Time: 03:51 sp4 12/19 02:56 Order name: O2 Per Protocol; Complete Time: 03:21 sp4 12/19 02:56 Order name: O2 Sat Monitoring; Complete Time: 03:21 sp4 EC:37 Rate is 63 beats/min. Rhythm is irregular, Sinus arrythmia. QRS [place] is Normal. CO sp4 interval is prolonged at 210 msec. QRS interval is normal. QT interval is normal. No Q waves. No ST changes noted. Clinical impression: No evidence of ischemia. Interpreted by me. Administered Medications: 03:21 Drug: Aspirin PO Chewable Tablet 324 mg Route: PO; kd3 05:35 Follow up: Response: No adverse reaction ll3 03:21 Drug: cloNIDine PO 0.1 mg Route: PO; kd3 05:35 Follow up: Response: No adverse reaction ll3 03:24 Not Given (Patient Refused): Ketorolac IVP 15 mg IVP once kd3 03:24 Not Given (Patient Refused): metoCLOPramide IVP 10 mg IVP once; over 1 to 2 minutes kd3 03:24 Drug: Acetaminophen PO 1000 mg Route: PO; kd3 05:35 Follow up: Response: No adverse reaction ll3 04:00 Drug: diphenhydrAMINE IVP 25 mg Route: IVP; Site: left upper arm; kd3 05:35 Follow up: Response: No adverse reaction ll3 Disposition Summary: 12/19/22 05:24 Discharge Ordered Location: Home sp4 Problem: new sp4 Symptoms: have improved sp4 Condition: Stable sp4 Diagnosis - Migraine without aura, not intractable sp4 - Addiction to opiates sp4 Followup: sp4 - With: Private Physician - When: 7 - 10 days - Reason: Recheck today's complaints Discharge Instructions: - Discharge Summary Sheet sp4 - Chronic Migraine Headache sp4 Forms: - Patient Portal Instructions sp4 Prescriptions: - hydralazine 50 mg Oral tablet - take 1 tablet by ORAL route 3 times per day; 90 tablet; Refills: 0, Product sp4 Selection Permitted Signatures: Dispatcher [employer] EDShereen Shepherd RN RN kd3 Deyanira Medina RN RN vc1 Dion Randhawa MD MD sp4 Shyann Moore RN ll3 Corrections: (The following items were deleted from the chart) 05:06 04:57 BASIC METABOLIC PANEL+C.LAB.BRZ ordered. EDMS EDMS 05:06 04:57 HEPATIC FUNCTION+C.LAB.BRZ ordered. EDMS EDMS 05:06 04:57 MAGNESIUM+C.LAB.BRZ ordered. EDMS EDMS 05:06 04:57 PROBNP+C.LAB.BRZ ordered. EDMS EDMS 05:06 04:57 PROTIME (+INR)+COAG.LAB.BRZ ordered. EDMS EDMS 05:06 04:57 Troponin High Sensitivity+C.LAB.BRZ ordered. EDMS EDMS 05:07 04:57 CBC+H.LAB.BRZ ordered. EDMS EDMS 05:13 04:57 Chest Single View+RAD.RAD.BRZ ordered. EDMS EDMS
--- NOTE | 2022-12-19 05:25 | ER ---
Nurse's Notes [facility] Name: Marjan Kolb Age: 67 yrs Sex: Female : 1955 Arrival Date: 12/19/2022 Time: 02:45 Bed 2 Private MD: Diagnosis: Migraine without aura, not intractable;Addiction to opiates Presentation: 12/19 02:51 Chief complaint: Patient states: I was short of breath with a bad headache and my chest vc1 hurts a little bit EMS states: We were called for shortness of breath and a headache when we arrived her bp was 224/111. She says she took her lisinopril. Coronavirus screen: Vaccine status: Patient reports receiving the 2nd dose of the covid vaccine. Plus booster; XYDO Client denies travel out of the [place] in the last 14 days. At this time, the client does not indicate any symptoms associated with coronavirus-19. Ebola Screen: Patient negative for fever greater than or equal to 101.5 degrees Fahrenheit, and additional compatible Ebola Virus Disease symptoms Patient denies exposure to infectious person. Patient denies travel to an Ebola-affected area in the 21 days before illness onset. No symptoms or risks identified at this time. Initial Sepsis Screen: Does the patient meet any 2 criteria? No. Patient's initial sepsis screen is negative. Does the patient have a suspected source of infection? No. Patient's initial sepsis screen is negative. Risk Assessment: Do you want to hurt yourself or someone else? Patient reports no desire to harm self or others. Onset of symptoms was December 19, 2022 at 01:30. 02:51 Method Of Arrival: EMS: [facility] vc1 02:51 Acuity: BLAYNE 3 vc1 Triage Assessment: 02:56 General: Appears in no apparent distress. comfortable, Behavior is calm, cooperative, vc1 appropriate for age. Pain: Complains of pain in chest and headache Pain does not radiate. Pain currently is 10 out of 10 on a pain scale. EENT: No deficits noted. No signs and/or symptoms were reported regarding the EENT system. Neuro: Level of Consciousness is awake, alert, obeys commands, Oriented to person, place, time, situation, Appropriate for age. Cardiovascular: No deficits noted. Cardiovascular: Reports chest pain, shortness of breath, Chest pain is described as mild. Respiratory: Airway is patent Respiratory effort is even, unlabored, Respiratory pattern is regular, symmetrical. GI: No deficits noted. No signs and/or symptoms were reported involving the gastrointestinal system. : No deficits noted. No signs and/or symptoms were reported regarding the genitourinary system. Derm: No deficits noted. No signs and/or symptoms reported regarding the dermatologic system. Musculoskeletal: No deficits noted. No signs and/or symptoms reported regarding the musculoskeletal system. Historical: - Allergies: 02:56 Azithromycin; vc1 02:56 Bactrim; vc1 02:56 butorphanol; vc1 02:56 Fentanyl; vc1 02:56 Reglan; vc1 02:56 Sulfa (Sulfonamide Antibiotics); vc1 02:56 TRIMETHOPRIM; vc1 - PMHx: 02:56 angina pectoris; Anxiety; Atrial fibrillation; Bipolar disorder; esophageal varicies; vc1 Hepatitis; HIV positive; Hypertensive disorder; Migraine; panic attack; - Immunization history:: Client reports receiving the 2nd dose of the Covid vaccine. - Social history:: Smoking status: Patient denies any tobacco usage or history of. - Family history:: not pertinent. Screenin:58 [facility] ED Fall Risk Assessment (Adult) History of falling in the last 3 months, vc1 including since admission No falls in past 3 months (0 pts) Confusion or Disorientation No (0 pts) Intoxicated or Sedated No (0 pts) Impaired Gait No (0 pts) Mobility Assist Device Used No (0 pt) Altered Elimination No (0 pt) Score/Fall Risk Level 0 - 2 = Low Risk Oriented to surroundings, Maintained a safe environment, Educated pt \T\ family on fall prevention, incl call for assistance when getting out of bed. Abuse screen: Denies threats or abuse. Nutritional screening: No deficits noted. Tuberculosis screening: No symptoms or risk factors identified. Assessment: 04:10 General: Appears uncomfortable, Behavior is calm, cooperative. Pain: Complains of pain kd3 in back and chest. Neuro: Level of Consciousness is awake, alert, obeys commands, Oriented to person, place, time, situation. Cardiovascular: Patient's skin is warm and dry. Respiratory: Airway is patent Trachea midline Respiratory effort is even, unlabored, Respiratory pattern is regular, symmetrical. Vital Signs: 02:51 BP 168 / 134; Pulse 70; Resp 14; Temp 97; Pulse Ox 100% ; Weight 81.65 kg; Height 5 ft. vc1 4 in. ; Pain 10/10; 04:10 BP 193 / 109; Pulse 58; Resp 19; Pulse Ox 98% on R/A; kd3 05:33 ll3 02:51 Body Mass Index 30.90 (81.65 kg, 162.56 cm) vc1 02:51 Pain Scale: Adult vc1 05:33 Pt refuses vital signs ll3 ED Course: 02:51 Patient arrived in ED. vc1 02:55 Triage completed. vc1 02:56 Dion Randhawa MD is Attending Physician. sp4 02:56 Arm band placed on left wrist. vc1 02:57 Shereen Marinelli RN is Primary Nurse. kd3 02:59 Patient has correct armband on for positive identification. Placed in gown. Bed in low vc1 position. Call light in reach. Client placed on continuous cardiac and pulse oximetry monitoring. NIBP monitoring applied. 03:23 Chest Single View In Process Unspecified. EDMS 03:51 Inserted saline lock: 24 gauge in left upper arm, using aseptic technique. Blood kd3 collected. 03:58 X-ray completed. Portable x-ray completed in exam room. Patient tolerated procedure mh1 well. 04:04 Liver (Hepatic) Function Sent. kd3 04:04 Basic Metabolic Panel Sent. kd3 04:04 CBC with Automated Diff Sent. kd3 04:04 Magnesium Sent. kd3 04:04 NT PRO-BNP Sent. kd3 04:04 Troponin High Sensitivity Sent. kd3 05:36 No provider procedures requiring assistance completed. IV discontinued, intact, ll3 bleeding controlled, No redness/swelling at site. Pressure dressing applied. Administered Medications: 03:21 Drug: Aspirin PO Chewable Tablet 324 mg Route: PO; kd3 05:35 Follow up: Response: No adverse reaction ll3 03:21 Drug: cloNIDine PO 0.1 mg Route: PO; kd3 05:35 Follow up: Response: No adverse reaction ll3 03:24 Not Given (Patient Refused): Ketorolac IVP 15 mg IVP once kd3 03:24 Not Given (Patient Refused): metoCLOPramide IVP 10 mg IVP once; over 1 to 2 minutes kd3 03:24 Drug: Acetaminophen PO 1000 mg Route: PO; kd3 05:35 Follow up: Response: No adverse reaction 3 04:00 Drug: diphenhydrAMINE IVP 25 mg Route: IVP; Site: left upper arm; kd3 05:35 Follow up: Response: No adverse reaction 3 Medication: 02:59 VIS not applicable for this client. vc1 Outcome: 05:24 Discharge ordered by . sp4 05:36 Discharged to home via wheelchair, with family. 3 05:36 Condition: stable 05:36 Discharge instructions given to patient, Instructed on discharge instructions, follow up and referral plans. medication usage, Demonstrated understanding of instructions, follow-up care, medications, Prescriptions given X 1. 05:37 Patient left the ED. 3 Signatures: Dispatcher [employer] EDMS Gracia Concepcion 1 Shyann Moore RN RN ll3 Shereen Marinelli RN RN kd3 Deyanira Medina RN RN vc1 Dion Randhawa MD MD sp4
[2022-12-19 05:47] VITALS: TEMP 97
[2022-12-19 05:54] VITALS: BP 193/109; O2SAT 98
--- NOTE | 2022-12-19 13:09 | EKG ---
Test Date: 2022-12-19 Test Time: 03:06:40 Family Law Paralegal: [place] MEASUREMENT RESULTS: Intervals: Rate: 63 MO: 210 QRSD: 94 QT: 444 QTc: 454 [place]: P: 33 MO: 210 QRS: 23 T: 196 INTERPRETIVE STATEMENTS: Sinus rhythm with marked sinus arrhythmia with 1st degree AV block Left ventricular hypertrophy with repolarization abnormality Abnormal ECG Compared to ECG 12/13/2022 17:30:36 First degree AV block now present Sinus bradycardia no longer present Electronically Signed On 12-19-22 13:08:34 CDT by Mike Lund
--- NOTE | 2022-12-19 18:26 | RAD REPORT ---
EXAM DESCRIPTION: RAD - Chest Single View - 12/19/2022 3:58 am CLINICAL HISTORY: CHEST PAINS COMPARISON: 12/13/2022. TECHNIQUE: XR CHEST 1 VIEW 12/19/2022 12:00 AM CDT FINDINGS: The heart is enlarged. Lungs are clear without consolidation, atelectasis, mass or edema. There is no pleural effusion. There is no pneumothorax. There are no acute osseous findings. There ar e bilateral shoulder arthroplasty changes. IMPRESSION: Clear lungs. Electronically signed by: Giovani Guerra MD 12/19/2022 5:13 AM CDT Due to temporary technical issues with the PACS/Fluency reporting system, reports are being signed by the in house radiologists without review as a courtesy to insure prompt reporting. The interpreting radiologist is fully responsible for the content of the report.
== END 2022-12-19 05:37 | disposition home or self-care (01) ==
LOC: ER 02:45
DX: G43.009 Migraine without aura, not intractable, without status migrainosus (principal); F11.20 Opioid dependence, uncomplicated; Z88.1 Allergy status to other antibiotic agents; Z88.2 Allergy status to sulfonamides; Z88.3 Allergy status to other anti-infective agents; Z88.5 Allergy status to narcotic agent; Z88.8 Allergy status to other drugs, medicaments and biological substances
CPT/HCPCS: 93005; 85025; 80048; 36415; 83735; 80076; 84484; 83880; 71045; J1200; 96374; 99285; J2765

== ENCOUNTER 2022-12-19 08:59 | Emergency (ER) | payer OTHER ==
--- OUTSIDE RECORDS SUMMARY | 2022-12-19 09:30 | XMS REPORT | Continuity of Care Document ---
:1955 Author Organization [facility] t Address [address] [facility] [address] [place] [address] Care Team Providers Name Role Phone Urmila [...] Attending Clinician Unavailable Robbi Bal Attending Clinician [facility] Attending Clinician Unavailable Isaias Whiteside RN Attending Clinician Unavailable TOMY MARIE Attending Clinician Unavailable Reilly Means MD Attending Clinician Ofe Shields MD Attending Clinician Tomy Marie MD Attending Clinician Doctor Unassigned, [place] Attending Clinician Unavailable Bill COLES Attending Clinician Unavailable Bill Rose Attending Clinician CHARITY MCALLISTER Attending Clinician Unavailable Charity Mcallister MD Attending Clinician GADIEL KOEHLER Attending Clinician Unavailable Mike Lund Attending Clinician Unavailable NIKOLAI REEVES Attending Clinician Unavailable Eliseo Arce MD Attending Clinician Carol Ann IZQUIERDO, Sarai Lieberman Attending Clinician [phone] Ashly Pelletier MA Attending Clinician Unavailable Dagoberto Bass MD Attending Clinician [place] Evangelista Attending Clinician Lab, [facility] Pob I Attending Clinician Unavailable Monica Rodas MA Attending Clinician Unavailable Agustina Ortiz MA Attending Clinician Unavailable Andrez RAMIREZ, Rody Attending Clinician Unavailable Kirit Flood MD, V. Attending Clinician HEMATPOUR, BEVERLY Attending Clinician Unavailable Caridad ORACLE SQL DEVELOPER, Gloria Attending Clinician Xiao RAMIREZ, Michael Corbin Attending Clinician Unavailable Team, [facility] Attending Clinician UnavailDO PORSHA Newell Attending Clinician Unavailable Gadiel Koehler MD Attending Clinician Tyrone JENKINS, Eveline Sierra Attending Clinician Stanislav RAMIREZ, Eladio Inman Attending Clinician Unavailable Geraldine SALGUERO, Leyda Attending Clinician [phone] Selvin RAMIREZ, Stefanie Attending Clinician Unavailable [...] Expiration Date S gabino [facility] COMMUNITY PLAN [id number] 2012 STAR PLUS OON 00:00:00 [facility] [id number] 2019 DUAL COMPLETE HMO 00:00:00 [facility] STAR [id number] 2019 PLUS 00:00:00 MEDICAID [facility] [id number] 2020 00:00:00 [facility] [id number] 2019 [facility]ALTH [facility] 00:00:00 [employer] MEDICARE ADV [id number] 2019 2019 00:00:00 00:00:00 Problems Condition Condition Condition Status Onset Resolution Last Treating Co mments Source Name Details Category Date Date Treatment Clinician Date Dyspnea, Dyspnea, Disease Active Unive rs unspecifie unspecifie 02-11 it y of d type d type 00:00: [place] 00 Medical Branch Gastropare Gastropare Disease Active Overview : Methodi sis sis 4-[address] 00:[facility] note l might be different from the original. Added automatic ally from request for surgery [id number] Dysphagia Dysphagia Disease Active Overview: Methodi 4-[address] 00:00: [facility] 00 note l might be different from the original. Added automatic ally from request for surgery [id number] CCL / EPS CCL / EPS Diagnosis [...] N/V [facility] hoxazole - Clear 00:00: [facility] trimetho DA Active SV [facility] prim - Clear 00:00: [facility] codeine DA Active SV N/V [facility] -25 Clear 00:00: [facility] Metoclop Propensi Active UT ramide ty [...] Hives Univers INGREDI 208 ity of 00:00: [place] [facility] TRIMETHO DRUG Active Hives 2018-0 [...] Date Stop Date Source Natural father Diabetes [facility] Natural father Other - see comments [facility] Natural [facility] Hy[facility] father [facility] Natural mother [facility] Social History Social Habit Start Date Stop Date Quantity Comments Source Gender identity 2020-10-06 Identifies as Method ist 15:23:56 female gender Hospital (finding) History SDOH [facility] Alcohol Frequency Hospita l History SDOH [facility] Alcohol Std Drinks Hospit al History SDOH [facility] Sexual orientation [facility] History of Social 2022-08-26 2022-08-[address] function 00:00:00 00:00:00 Hospital Exposure to 2022-04-30 2022-05-10 Yes University of SARS-CoV-2 (event) 00:00:00 10:25:00 [facility] Tobacco use and 2022-02-11 2022-02-11 Former smokeless Uni versity of exposure 00:00:00 00:00:00 tobacco user [facility] Tobacco Comment 2022-02-11 2022-02-11 Smokes approx 1-2 Un iversity of 00:00:00 00:00:00 cigarettes per [facility] day when she Branch smokes Alcohol intake 2020-12-08 2020-12-08 Current drinker [facility] 00:00:00 00:00:00 of [facility] (finding) Cigarettes smoked 2020-09-05 2020-09-[address] current (pack per 00:00:00 00:00:00 [facility] day) - Reported Cigarette 2020-09-05 2020-09-05 [facility] pack-years 00:00:00 00:00:00 Hospital Alcohol Comment 2016-09-23 2016-09-23 rare [facility] 00:00:00 00:00:00 Hospital History of tobacco 2011-09-29 User of smokeless University of use 00:00:00 tobacco [facility] Sex Ass[birth year] At [birth year] [facility] 00:00:00 00:00:00 Smoking Status Start Date Stop Date Source Ex-smoker 2022-02-11 00:00:00 2022-02-11 00:00:00 [facility] [place] [facility] Medications Ordered Filled Start Stop Current Ordering Indication Dosage Frequency Signature Comments Components Source Medication Medication Date Date Medication? Clinician (SIG) Name Name ravindra Yes [id number] Take one Univers ne-tenofovi 6-12 po daily ity of r alafen 00:00: [place] (DESCOVY) 00 Medical tablet Branch raltegravir Yes [id number] 400mg Take 1 Univers (ISENTRESS) 6-12 tablet by ity of 400 mg 00:00: mouth in [place] tablet 00 the Medical morning Branch and 1 tablet in the evening. DESCOVY Yes [id number] Take one Univers tablet 5-08 po daily ity of 00:00: [place] 00 Medical Branch raltegravir Yes [id number] 400mg Take 1 Univers (ISENTRESS) 5-08 tablet by ity of 400 mg 00:00: mouth in [place] tablet 00 the Medical morning Branch and 1 tablet in the evening. DESCOVY 2022- No [id number] Take one Univers tablet 5-08 06-12 po daily ity of 00:00: 00:00 [place] 00 :00 Medical Branch raltegravir 2022- No [id number] 400mg Take 1 Univers (ISENTRESS) 5-08 06-12 tablet by it y of 400 mg 00:00: 00:00 mouth in [place] tablet 00 :00 the Medical morning Branch and 1 tablet in the evening. emtmarianabi Yes [id number] Take one Univers ne-tenofovi 4-04 po daily ity of r alafen 00:00: [place] (DESCOVY) 00 Medical tablet Branch emtricitabi Yes [id number] Take one Univers ne-tenofovi 4-04 po daily ity of r alafen 00:00: [place] (DESCOVY) 00 Medical tablet Branch emtricitabi 2022- No [id number] Take one Univers ne-tenofovi 4-04 05-08 po daily ity of r alafen 00:00: 00:00 [place] (DESCOVY) 00 :00 Medical tablet Branch potassium 2021-05- No 10meq 10 mEq, IV Univers chloride in 07-11 Piggyback, i ty of water 10 20:00: 22:00 ONCE, 1 [place] mEq/100 mL 00 :00 dose, On Medic al RTU 10 mEq [facility] 05/10/22 at 1400, Administer over 60 Minutes, 100 mL magnesium 2021-05 No 800mg 800 mg, Uni vers oxide 07-11 Oral, ity of (MAG-OX 20:00: 19:37 ONCE, 1 [place] 400) tablet 00 :00 dose, On Medi porfirio 800 mg [facility] 05/10/22 at 1400, Routine KCL 2021-05 No 40meq 40 mEq, Univers (KLOR-CON 07-11 Oral, ity of M20) tablet 19:15: 19:37 [place]CE[place] 1 [place] 40 mEq 00 :00 dose, On Medical [facility] 05/10/22 at 1315, JOE hydralAZINE 2021-05 No 10mg 10 mg, Uni vers (APRESOLINE 07-11 Slow IV ity of ) injection 18:45: 18:42 [place] 10 mg 00 :00 ONCE, 1 Medical dose, On [facility] 05/10/22 at 1245, JOE NaCl 0.9% 2021-05 No 1000mL at 999 Uni vers (NS) bolus 07-11 mL/hr, ity of infusion 17:45: 20:00 1,000 mL, [place] 1,000 mL 00 :00 IV Medical Infusion, Branch ONCE, 1 dose, On [facility] 05/10/22 at 1145, JOE cefpodoxime 2021-05- No [id number] 100mg Take 1 Univers 100 mg 2-17 12-25 tablet by ity of tablet 00:00: 05:59 mouth in [place] 00 :00 the Medical morning Branch and 1 tablet in the evening. Do all this for 7 days. cefpodoxime 2021-05- No [id number] 100mg Take 1 Univers 100 mg 2-17 12-25 tablet by ity of tablet 00:00: 05:59 mouth in [place] 00 :00 the [facility] morning Branch and 1 tablet in the evening. Do all this for 7 days. cefpodoxime 2021-05- No [id number] 100mg Take 1 Univers 100 mg 2-17 12-25 tablet by ity of tablet 00:00: 05:59 mouth in [place] 00 :00 the Medical morning Branch and 1 tablet in the evening. Do all this for 7 days. butalbital- 2021-05- No 1{tbl} 1 tablet, Univers acetaminoph 2-16 12-15 Oral, ity of en-caff 00:15: 23:19 ONCE, 1 [place] (ESGIC) 00 :00 dose, On Medical 50-325-40 [...] [facility] 05/06/22 at 1600, JOE ondansetron 2021-05 No 8mg 8 mg, Slow Univers (ZOFRAN 2-15 12-15 IV Push, ity of (PF)) 21:15: 22:19 ONCE, 1 [place] injection 8 00 :00 dose, On Medi porfirio mg [facility] 05/06/22 at 1515, JOE ondansetron 2021-05 Yes [id number] 1-2 U nivers 4 mg tablet 2-15 tablets ity o f 00:00: every 8 [place] 00 hours as Medical needed for Branch nausea benzonatate 2021-05 Yes [id number] 200mg Take 1 Univers 200 mg 2-15 capsule by ity of capsule 00:00: mouth 3 (three) Medical times Branch daily as needed for Cough. albuterol 2021-05 Yes [id number] 2{puff} Inhale 2 Univers 90 2-15 Puffs ity of mcg/actuati 00:00: every 4 [place] on inhaler 00 (four) Medical hours as Branch needed for Wheezing or Shortness of Breath. butalbital- 2021-05 Yes [id number] 1{tbl} Take 1 Univers acetaminoph 2-15 tablet by ity of en-caff 00:00: mouth [place] 50-325-40 00 every 4 Medical mg tablet (four) Branch hours as needed (headache) . ondansetron 2021-05 Yes [id number] 1-2 U nivers 4 mg tablet 2-15 tablets ity o f 00:00: every 8 [place] 00 hours as Medical needed for Branch nausea benzonatate 2021-05 Yes [id number] 200mg Take 1 Univers 200 mg 2-15 capsule by ity of capsule 00:00: mouth 3 (three) Medical times Branch daily as needed for Cough. albuterol 2021-05 Yes [id number] 2{puff} Inhale 2 Univers 90 2-15 Puffs ity of mcg/actuati 00:00: every 4 [place] on inhaler 00 (four) Medical hours as Branch needed for Wheezing or Shortness of Breath. butalbital- 2021-05 Yes [id number] 1{tbl} Take 1 Univers acetaminoph 2-15 tablet by ity of en-caff 00:00: mouth [place] 50-325-40 00 every 4 Medical mg tablet (four) Branch hours as needed (headache) . ondansetron 2021-05 Yes [id number] 1-2 U nivers 4 mg tablet 2-15 tablets ity o f 00:00: every 8 [place] 00 hours as Medical needed for Branch nausea benzonatate 2021-05 Yes [id number] 200mg Take 1 Univers 200 mg 2-15 capsule by ity of capsule 00:00: mouth 3 00 (three) Medical times Branch daily as needed for Cough. albuterol 2021-05 Yes [id number] 2{puff} Inhale 2 Univers 90 2-15 Puffs ity of mcg/actuati 00:00: every 4 [place] on inhaler 00 (four) Medical hours as Branch needed for Wheezing or Shortness of Breath. butalbital- 2021-05 Yes [id number] 1{tbl} Take 1 Univers acetaminoph 2-15 tablet by ity of en-caff 00:00: mouth [place] 50-325-40 00 every 4 Medical mg tablet (four) Branch hours as needed (headache) . ondansetron 2021-05 Yes [id number] 1-2 U nivers 4 mg tablet 2-15 tablets ity o f 00:00: every 8 [place] 00 hours as Medical needed for Branch nausea benzonatate 2021-05 Yes [id number] 200mg Take 1 Univers 200 mg 2-15 capsule by ity of capsule 00:00: mouth 3 [place] 00 (three) Medical times Branch daily as needed for Cough. albuterol 2021-05 Yes [id number] 2{puff} Inhale 2 Univers 90 2-15 Puffs ity of mcg/actuati 00:00: every 4 [place] on inhaler 00 (four) Medical hours as Branch needed for Wheezing or Shortness of Breath. butalbital- 2021-05 Yes [id number] 1{tbl} Take 1 Univers acetaminoph 2-15 tablet by ity of en-caff 00:00: mouth [place] 50-325-40 00 every 4 Medical mg tablet (four) Branch hours as needed (headache) . ondansetron 2021-05 Yes [id number] 1-2 U nivers 4 mg tablet 2-15 tablets ity o f 00:00: every 8 [place] 00 hours as Medical needed for Branch nausea benzonatate 2021-05 Yes [id number] 200mg Take 1 Univers 200 mg 2-15 capsule by ity of capsule 00:00: mouth 3 [place] 00 (three) Medical times Branch daily as needed for Cough. albuterol 2021-05 Yes [id number] 2{puff} Inhale 2 Univers 90 2-15 Puffs ity of mcg/actuati 00:00: every 4 [place] on inhaler 00 (four) Medical hours as Branch needed for Wheezing or Shortness of Breath. butalbital- 2021-05 Yes [id number] 1{tbl} Take 1 Univers acetaminoph 2-15 tablet by ity of en-caff 00:00: mouth [place] 50-325-40 00 every 4 Medical mg tablet (four) Branch hours as needed (headache) . ondansetron 2021-05 Yes [id number] 1-2 U nivers 4 mg tablet 2-15 tablets ity o f 00:00: every 8 [place] 00 hours as Medical needed for Branch nausea benzonatate 2021-05 Yes [id number] 200mg Take 1 Univers 200 mg 2-15 capsule by ity of capsule 00:00: mouth 3 [place] 00 (three) Medical times Branch daily as needed for Cough. albuterol 2021-05 Yes [id number] 2{puff} Inhale 2 Univers 90 2-15 Puffs ity of mcg/actuati 00:00: every 4 [place] on inhaler 00 (four) Medical hours as Branch needed for Wheezing or Shortness of Breath. butalbital- 2021-05 Yes [id number] 1{tbl} Take 1 Univers acetaminoph 2-15 tablet by ity of en-caff 00:00: mouth [place] 50-325-40 00 every 4 Medical mg tablet (four) Branch hours as needed (headache) . ondansetron 2021-05 Yes [id number] 1-2 U nivers 4 mg tablet 2-15 tablets ity o f 00:00: every 8 [place] 00 hours as Medical needed for Branch nausea benzonatate 2021-05 Yes [id number] 200mg Take 1 Univers 200 mg 2-15 capsule by ity of capsule 00:00: mouth 3 00 (three) Medical times Branch daily as needed for Cough. albuterol 2021-05 Yes [id number] 2{puff} Inhale 2 Univers 90 2-15 Puffs ity of mcg/actuati 00:00: every 4 [place] on inhaler 00 (four) Medical hours as Branch needed for Wheezing or Shortness of Breath. butalbital- 2021-05 Yes [id number] 1{tbl} Take 1 Univers acetaminoph 2-15 tablet by ity of en-caff 00:00: mouth [place] 50-325-40 00 every 4 Medical mg tablet (four) Branch hours as needed (headache) . ondansetron 2021-05 Yes [id number] 1-2 U nivers 4 mg tablet 2-15 tablets ity o f 00:00: every 8 [place] 00 hours as Medical needed for Branch nausea benzonatate 2021-05 Yes [id number] 200mg Take 1 Univers 200 mg 2-15 capsule by ity of capsule 00:00: mouth 3 [place] 00 (three) Medical times Branch daily as needed for Cough. albuterol 2021-05 Yes [id number] 2{puff} Inhale 2 Univers 90 2-15 Puffs ity of mcg/actuati 00:00: every 4 [place] on inhaler 00 (four) Medical hours as Branch needed for Wheezing or Shortness of Breath. butalbital- 2021-05 Yes [id number] 1{tbl} Take 1 Univers acetaminoph 2-15 tablet by ity of en-caff 00:00: mouth [place] 50-325-40 00 every 4 Medical mg tablet (four) Branch hours as needed (headache) . ondansetron 2021-05 Yes [id number] 1-2 U nivers 4 mg tablet 2-15 tablets ity o f 00:00: every 8 [place] 00 hours as Medical needed for Branch nausea benzonatate 2021-05 Yes [id number] 200mg Take 1 Univers 200 mg 2-15 capsule by ity of capsule 00:00: mouth 3 00 (three) Medical times Branch daily as needed for Cough. albuterol 2021-05 Yes [id number] 2{puff} Inhale 2 Univers 90 2-15 Puffs ity of mcg/actuati 00:00: every 4 [place] on inhaler 00 (four) Medical hours as Branch needed for Wheezing or Shortness of Breath. butalbital- 2021-05 Yes [id number] 1{tbl} Take 1 Univers acetaminoph 2-15 tablet by ity of en-caff 00:00: mouth [place] 50-325-40 00 every 4 Medical mg tablet (four) Branch hours as needed (headache) . ondansetron 2021-05 Yes [id number] 1-2 U nivers 4 mg tablet 2-15 tablets ity o f 00:00: every 8 [place] 00 hours as Medical needed for Branch nausea benzonatate 2021-05 Yes [id number] 200mg Take 1 Univers 200 mg 2-15 capsule by ity of capsule 00:00: mouth 3 [place] 00 (three) Medical times Branch daily as needed for Cough. albuterol 2021-05 Yes [id number] 2{puff} Inhale 2 Univers 90 2-15 Puffs ity of mcg/actuati 00:00: every 4 [place] on inhaler 00 (four) Medical hours as Branch needed for Wheezing or Shortness of Breath. butalbital- 2021-05 Yes [id number] 1{tbl} Take 1 Univers acetaminoph 2-15 tablet by ity of en-caff 00:00: mouth [place] 50-325-40 00 every 4 Medical mg tablet (four) Branch hours as needed (headache) . [facility] 2021-05- No [id number] 2{tbl} Take 2 Univers r-ritonavir 2-15 12-21 tablets by i ty of (PAXLOVID, 00:00: 05:59 mouth [place] EUA,) 300 00 :00 the Medical mg (150 mg morning Branch x 2)-100 mg and 2 tablet tablets in the evening. Do all this for 5 days. [facility] 2021-05- No [id number] 2{tbl} Take 2 Univers r-ritonavir 2-15 12-21 tablets by i ty of (PAXLOVID, 00:00: 05:59 [place] EUA[place] 300 00 :00 the Medical mg (150 mg morning Branch x 2)-100 mg and 2 tablet tablets in the evening. Do all this for 5 days. [facility] 2021-05- No [id number] 2{tbl} Take 2 Univers r-ritonavir 2-15 12-21 tablets by i ty of (PAXLOVID, 00:00: 05:59 [place] EUA[place] 300 00 :00 the Medical mg (150 mg morning Branch x 2)-100 mg and 2 tablet tablets in the evening. Do all this for 5 days. [facility] 2021-05- No [id number] 2{tbl} Take 2 Univers r-ritonavir 2-15 12-21 [...] 04/22/22 at 1645, Routine amoxicillin 2021-05 Yes [id number] 1{tbl} Take 1 Univers -clavulanat 2-01 [id number] tablet by i ty of e 875-125 00:00: mouth [place] mg per 00 every 12 Medical tablet (twelve) Branch hours. ondansetron 2021-05 Yes [id number] 4mg Take 1 Univers 4 mg 2- 460812 tablet by ity of disintegrat 00:00: mouth [place] ing tablet 00 every 8 Medica l (eight) Branch hours as needed for Nausea and Vomiting (N/V). amoxicillin 2021-05 Yes [id number] 1{tbl} Take 1 Univers -clavulanat 2- [id number] tablet by i ty of e 875-125 00:00: mouth [place] mg per 00 every 12 Medical tablet (twelve) Branch hours. ondansetron 2021-05 Yes [id number] 4mg Take 1 Univers 4 mg 2- [id number] tablet by ity of disintegrat 00:00: mouth [place] ing tablet 00 every 8 Medica l (eight) Branch hours as needed for Nausea and Vomiting (N/V). amoxicillin 2021-05 Yes [id number] 1{tbl} Take 1 Univers -clavulanat 2-01 [id number] tablet by i ty of e 875-125 00:00: mouth [place] mg per 00 every 12 Medical tablet (twelve) Branch hours. ondansetron 2021-05 Yes [id number] 4mg Take 1 Univers 4 mg 2-01 [id number] tablet by ity of disintegrat 00:00: mouth [place] ing tablet 00 every 8 Medica l (eight) Branch hours as needed for Nausea and Vomiting (N/V). amoxicillin 2021-05 Yes [id number] 1{tbl} Take 1 Univers -clavulanat 2-01 [id number] tablet by i ty of e 875-125 00:00: mouth [place] mg per 00 every 12 Medical tablet (twelve) Branch hours. ondansetron 2021-05 Yes [id number] 4mg Take 1 Univers 4 mg 2-01 [id number] tablet by ity of disintegrat 00:00: mouth [place] ing tablet 00 every 8 Medica l (eight) Branch hours as needed for Nausea and Vomiting (N/V). amoxicillin 2021-05 Yes [id number] 1{tbl} Take 1 Univers -clavulanat 2-01 [id number] tablet by i ty of e 875-125 00:00: mouth [place] mg per 00 every 12 Medical tablet (twelve) Branch hours. ondansetron 2021-05 Yes [id number] 4mg Take 1 Univers 4 mg 2-01 [id number] tablet by ity of disintegrat 00:00: mouth [place] ing tablet 00 every 8 Medica l (eight) Branch hours as needed for Nausea and Vomiting (N/V). amoxicillin 2021-05 Yes [id number] 1{tbl} Take 1 Univers -clavulanat 2-01 [id number] tablet by i ty of e 875-125 00:00: mouth [place] mg per 00 every 12 Medical tablet (twelve) Branch hours. ondansetron 2021-05 Yes [id number] 4mg Take 1 Univers 4 mg 2- [id number] tablet by ity of disintegrat 00:00: mouth [place] ing tablet 00 every 8 Medica l (eight) Branch hours as needed for Nausea and Vomiting (N/V). amoxicillin 2021-05 Yes [id number] 1{tbl} Take 1 Univers -clavulanat 2-01 [id number] tablet by i ty of e 875-125 00:00: mouth [place] mg per 00 every 12 Medical tablet (twelve) Branch hours. ondansetron 2021-05 Yes [id number] 4mg Take 1 Univers 4 mg 2-01 [id number] tablet by ity of disintegrat 00:00: mouth [place] ing tablet 00 every 8 Medica l (eight) Branch hours as needed for Nausea and Vomiting (N/V). amoxicillin 2021-05 Yes [id number] 1{tbl} Take 1 Univers -clavulanat 2-01 [id number] tablet by i ty of e 875-125 00:00: mouth [place] mg per 00 every 12 Medical tablet (twelve) Branch hours. ondansetron 2021-05 Yes [id number] 4mg Take 1 Univers 4 mg 2-01 [id number] tablet by ity of disintegrat 00:00: mouth [place] ing tablet 00 every 8 Medica l (eight) Branch hours as needed for Nausea and Vomiting (N/V). amoxicillin 2021-05 Yes [id number] 1{tbl} Take 1 Univers -clavulanat 2-01 [id number] tablet by i ty of e 875-125 00:00: mouth [place] mg per 00 every 12 Medical tablet (twelve) Branch hours. ondansetron 2021-05 Yes [id number] 4mg Take 1 Univers 4 mg 2- [id number] tablet by ity of disintegrat 00:00: mouth [place] ing tablet 00 every 8 Medica l (eight) Branch hours as needed for Nausea and Vomiting (N/V). amoxicillin 2021-05 Yes [id number] 1{tbl} Take 1 Univers -clavulanat 2-01 [id number] tablet by i ty of e 875-125 00:00: mouth [place] mg per 00 every 12 Medical tablet (twelve) Branch hours. ondansetron 2021-05 Yes [id number] 4mg Take 1 Univers 4 mg 2- [id number] tablet by ity of disintegrat 00:00: mouth [place] ing tablet 00 every 8 Medica l (eight) Branch hours as needed for Nausea and Vomiting (N/V). amoxicillin 2021-05 Yes [id number] 1{tbl} Take 1 Univers -clavulanat 2-01 [id number] tablet by i ty of e 875-125 00:00: mouth [place] mg per 00 every 12 Medical tablet (twelve) Branch hours. ondansetron 2021-05 Yes [id number] 4mg Take 1 Univers 4 mg 2- [id number] tablet by ity of disintegrat 00:00: mouth [place] ing tablet 00 every 8 Medica l (eight) Branch hours as needed for Nausea and Vomiting (N/V). amoxicillin 2021-05 Yes [id number] 1{tbl} Take 1 Univers -clavulanat 2-01 [id number] tablet by i ty of e 875-125 00:00: mouth [place] mg per 00 every 12 Medical tablet (twelve) Branch hours. ondansetron 2021-05 Yes [id number] 4mg Take 1 Univers 4 mg 2-01 [id number] tablet by ity of disintegrat 00:00: mouth [place] ing tablet 00 every 8 Medica l (eight) Branch hours as needed for Nausea and Vomiting (N/V). zoster 2021-05- No [id number] .5mL 0.5 mL by Univers vaccine, 0-05 03- 9104 Intramuscu ity of recombinant 00:00: 04:59 lar route [place] (SHINGRIX, 00 :00 once now Medic al PF,) for 1 Branch injection dose. And repeat in 2-6 months zoster 2021-05- No [id number] .5mL 0.5 mL by Univers vaccine, 0-05 03- 9104 Intramuscu ity of recombinant 00:00: 04:59 lar route [place] (SHINGRIX, 00 :00 once now Medic al PF,) for 1 Branch injection dose. And repeat in 2-6 months zoster 2021-05- No [id number] .5mL 0.5 mL by Univers vaccine, 0-05 [...] 1 mg tablet 19:28: at [place] [address] bedtime. Medical Branch traZODone 0 Yes 50mg Take 50 mg Un matt 100 mg 9-27 by mouth ity of tablet 19:28: at [place] [address] bedtime. Medical Branch hydralAZINE 2021-0 Yes 25mg [...] 1 mg tablet 19:28: at [place] [address] bedtime. Medical Branch traZODone 2021-0 Yes 50mg Take 50 mg Un matt 100 mg 9-27 by mouth ity of tablet 19:28: at [place] [address] bedtime. Medical Branch hydralAZINE 2021-0 Yes 25mg [...] 1 mg tablet 19:28: at [place] [address] bedtime. Medical Branch traZODone 2-0 Yes 50mg Take 50 mg Un matt 100 mg 9-27 by mouth ity of tablet 19:28: at [place] [address] bedtime. Medical Branch hydralAZINE 2-0 Yes 25mg [...] 1 mg tablet 19:28: at [place] [address] bedtime. Medical Branch traZODone 2021-0 Yes 50mg Take 50 mg Un matt 100 mg 9-27 by mouth ity of tablet 19:28: at [place] [address] bedtime. Medical Branch hydralAZINE 2021-0 Yes 25mg [...] 1 mg tablet 19:28: at [place] [address] bedtime. Medical Branch traZODone 2021-0 Yes 50mg Take 50 mg Un matt 100 mg 9-27 by mouth ity of tablet 19:28: at [place] [address] bedtime. Medical Branch hydralAZINE 2021-0 Yes 25mg [...] 1 mg tablet 19:28: at [place] [address] bedtime. Medical Branch traZODone 2021-0 Yes 50mg Take 50 mg Un matt 100 mg 9-27 by mouth ity of tablet 19:28: at [place] [address] bedtime. Medical Branch hydralAZINE 2021-0 Yes 25mg [...] 1 mg tablet 19:28: at [place] [address] bedtime. Medical Branch traZODone 2021-0 Yes 50mg Take 50 mg Un matt 100 mg 9-27 by mouth ity of tablet 19:28: at [place] [address] bedtime. Medical Branch hydralAZINE 2021-0 Yes 25mg [...] 1 mg tablet 19:28: at [place] [address] bedtime. Medical Branch traZODone 2021-0 Yes 50mg Take 50 mg Un matt 100 mg 9- by mouth ity of tablet 19:28: at [place] [address] bedtime. Medical Branch hydralAZINE 2021-0 Yes 25mg [...] 1 mg tablet 19:28: at [place] [address] bedtime. Medical Branch traZODone 2-0 Yes 50mg Take 50 mg Un matt 100 mg 9-27 by mouth ity of tablet 19:28: at [place] [address] bedtime. Medical Branch hydralAZINE 2021-0 Yes 25mg [...] 100 mg 04 (two) Medical tablet times [place] daily. amLODIPine 2021-0 Yes 10mg Take 10 mg U nivers (NORVASC) 9- by mouth ity of 10 mg 19:28: daily. [place] tablet 04 Medical Branch clonazePAM 2021-0 Yes 1mg Take 1 mg Un matt (KLONOPIN) 9-27 by mouth ity o f 1 mg tablet 19:28: at [place] [address] bedtime. Medical Branch traZODone 2-0 Yes 50mg Take 50 mg Un matt 100 mg 9-27 by mouth ity of tablet 19:28: at [place] [address] bedtime. Medical Branch hydralAZINE 2-0 Yes 25mg [...] 1 mg tablet 19:28: at [place] [address] bedtime. Medical Branch traZODone 2021-0 Yes 50mg Take 50 mg Un matt 100 mg 9-27 by mouth ity of tablet 19:28: at [place] [address] bedtime. Medical Branch hydralAZINE 2021-0 Yes 25mg [...] 1 mg tablet 19:28: at [place] [address] bedtime. Medical Branch traZODone 2021-0 Yes 50mg Take 50 mg Un matt 100 mg 9-27 by mouth ity of tablet 19:28: at [place] [address] bedtime. Medical Branch hydralAZINE 2021-0 Yes 25mg [...] 1 mg tablet 19:28: at [place] [address] bedtime. Medical Branch traZODone 2021-0 Yes 50mg Take 50 mg Un matt 100 mg 9- by mouth ity of tablet 19:28: at [place] [address] bedtime. Medical Branch hydralAZINE 2021-0 Yes 25mg [...] 1 mg tablet 19:28: at [place] [address] bedtime. Medical Branch traZODone 2022-0 Yes 50mg Take 50 mg Un matt 100 mg 9-27 by mouth ity of tablet 19:28: at [place] [address] bedtime. Medical Branch hydralAZINE 2-0 Yes 25mg [...] 1 mg tablet 19:28: at [place] [address] bedtime. Medical Branch traZODone 2-0 Yes 50mg Take 50 mg Un matt 100 mg 9-27 by mouth ity of tablet 19:28: at [place] [address] bedtime. Medical Branch hydralAZINE 2021-0 Yes 25mg [...] 1 mg tablet 19:28: at [place] [address] bedtime. Medical Branch traZODone 2022-0 Yes 50mg Take 50 mg Un matt 100 mg 9-27 by mouth ity of tablet 19:28: at [place] [address] bedtime. Medical Branch hydralAZINE 2-0 Yes 25mg [...] 1 mg tablet 19:28: at [place] [address] bedtime. Medical Branch traZODone 2-0 Yes 50mg Take 50 mg Un matt 100 mg 9-27 by mouth ity of tablet 19:28: at [place] [address] bedtime. Medical Branch hydralAZINE 2-0 Yes 25mg [...] ity of tablet 19:28: at [place] [address] bedtime. Medical Branch hydralAZINE 2021-0 Yes 25mg [...] 1 mg tablet 19:28: at [place] [address] bedtime. Medical Branch traZODone 2021-0 Yes 50mg Take 50 mg Un matt 100 mg 9-27 by mouth ity of tablet 19:28: at [place] [address] bedtime. Medical Branch hydralAZINE 2021-0 Yes 25mg [...] 1 mg tablet 19:28: at [place] [address] bedtime. Medical Branch traZODone Yes 50mg Take 50 mg Un matt 100 mg 02-16 by mouth ity of tablet 19:28: at [place] [address] bedtime. [facility] Branch cefpodoxime 2021- No [id number] 200mg Take 1 [facility] 200 mg 02-16 tablet by ity of tablet 00:00: 04:59 mouth in [place] 00 :00 the Medical morning Branch and 1 tablet in the evening. Do all this for 3 days. cefpodoxime 2021- No [id number] 200mg Take 1 [facility] 200 mg 02-16 tablet by ity of tablet 00:00: 04:59 mouth in [place] 00 :00 the [facility] and 1 tablet in the evening. Do all this for 3 days. haloperidol 2021- No 2mg 2 mg, Slow Univers lactate 02-15 IV Push, ity of (HALDOL) 09:00: 09:12 ONCE, 1 [place] injection 2 00 :00 dose, On Medi porfirio mg Mon [place] 02/15/22 at 0400, Routine hydroCHLORO Yes 25mg 25 mg, Univ ers thiazide 9-25 Oral, ity of (ESIDRIX) 14:00: DAILY, [place] capsule 25 00 First dose Med ical mg on [place] Branch 02/14/22 at 0900, Until Discontinu ed, Routine butalbital- Yes 1{tbl} 1 tablet, [facility] acetaminoph 24 Oral, ity of en-caff 18:46: Q6HPRN, [place] (ESGIC) 06 Starting Medical 50-325-40 on [facility] Branch mg tablet 1 02/13/22 at [...] [place] tablet 100 00 on [facility] Medical mg 02/11/22 at Branch 1300, Until Discontinu ed, Routine lisinopriL 0 Yes 40mg 40 mg, Unive rs (PRINIVIL,Z 02-11 Oral, BID, it y of ESTRIL) 18:00: [place] tablet 40 00 on [facility] Medical mg 02/11/22 at Branch 1300, Until Discontinu ed, Routine emtricitabi 0 Yes 1{tbl} 1 tablet, [facility] Oral, ity of r alafen [...] 02-11 Oral, ity of (TYLENOL 14:06: 17:37 [facility], [place] #3) 300-30 19 :24 Starting Medic al mg tablet 1 on [facility] tablet 02/11/22 at 0906, Until Tue02/12/22 at 1237, Routine, Pain (scale 4-6) sennosides- Yes 1{tbl} 1 tablet, Univers docusate 02-11 Oral, ity of sodium 14:06: QDAILYPRN, [place] (SENOKOT-S) 09 Starting Medi porfirio 8.6-50 mg on [facility] per tablet 02/11/22 at 1 tablet 0906, Until Discontinu ed, Routine, Constipati on ondansetron 0 Yes 4mg 4 mg, Slow Univers (ZOFRAN 02-11 IV Push, ity of (PF)) 14:05: [place], [place] injection 4 59 Starting Medi porfirio mg on [facility] Branch 02/11/22 at 0905, Until Discontinu ed, Routine, Nausea and Vomiting (N/V) acetaminoph Yes 650mg 650 mg, Un matt en 02-11 Oral, ity of (TYLENOL) 14:04: Q6HPRN, [place] tablet 650 37 Starting Medic al mg [...] ) 25 mg 09:10: daily. [facility] 54 Medical Branch amLODIPine 0 Yes 10mg Take 10 mg U nivers (NORVASC) 02-11 by mouth ity of 10 mg 09:10: daily. [facility] 54 [facility] Branch piperacilli 2021- No 3.375g [...] of therapy: 72 hours iopamidol 2021- No [id number] 60mL 60 mL, Univers (ISOVUE 02-11 Intravenou [...] 02/11/22 at 0015, JOE emtricitabi 0 Yes [id number] Take one Univers ne-tenofovi 9-12 po daily ity of r alafen 00:00: [place] (DESCOVY) Medical tablet Branch emtricitabi Yes [id number] Take one Univers ne-tenofovi 9-12 po daily ity of r alafen 00:00: [place] (DESCOVY) 00 Medical tablet Branch emtricitabi Yes [id number] Take one Univers ne-tenofovi 9-12 po daily ity of r alafen 00:00: [place] (DESCOVY) 00 Medical tablet Branch emtricitabi Yes [id number] Take one Univers ne-tenofovi 9-12 po daily ity of r alafen 00:00: [place] (DESCOVY) 00 Medical tablet Branch emtricitabi Yes [id number] Take one Univers ne-tenofovi 9-12 po daily ity of r alafen 00:00: [place] (DESCOVY) 00 Medical tablet Branch emtricitabi Yes [id number] Take one Univers ne-tenofovi 9-12 po daily ity of r alafen 00:00: [place] (DESCOVY) 00 Medical tablet Branch [facility] Yes [id number] Take one Univers ne-tenofovi 9-12 po daily ity of r alafen 00:00: [place] (DESCOVY) 00 Medical tablet Branch emtricita Yes [id number] Take one Univers ne-tenofovi 9-12 po daily ity of r alafen 00:00: [place] (DESCOVY) 00 Medical tablet Branch emtricita Yes [id number] Take one Univers ne-tenofovi 9-12 po daily ity of r alafen 00:00: [place] (DESCOVY) 00 Medical tablet Branch emtricita Yes [id number] Take one Univers ne-tenofovi 9-12 po daily ity of r alafen 00:00: [place] (DESCOVY) 00 Medical tablet Branch [facility] Yes [id number] Take one Univers ne-tenofovi 9-12 po daily ity of r alafen 00:00: [place] (DESCOVY) 00 Medical tablet Branch [facility] Yes [id number] Take one Univers ne-tenofovi 9-12 po daily ity of r alafen 00:00: [place] (DESCOVY) 00 Medical tablet Branch [facility] Yes [id number] Take one Univers ne-tenofovi 9-12 po daily ity of r alafen 00:00: [place] (DESCOVY) 00 Medical tablet Branch emtricita Yes [id number] Take one Univers ne-tenofovi 9-12 po daily ity of r alafen 00:00: [place] (DESCOVY) 00 Medical tablet Branch emtricita Yes [id number] Take one Univers ne-tenofovi 9-12 po daily ity of r alafen 00:00: [place] (DESCOVY) 00 Medical tablet Branch emtricita Yes [id number] Take one Univers ne-tenofovi 9-12 po daily ity of r alafen 00:00: [place] (DESCOVY) 00 Medical tablet Branch emtricita Yes [id number] Take one Univers ne-tenofovi 9-12 po daily ity of r alafen 00:00: [place] (DESCOVY) 00 Medical tablet Branch emtricitabi 2022- No [id number] Take one Univers ne-tenofovi 02-01-04 po daily ity of r alafen 00:00: 00:00 [place] (DESCOVY) 00 :00 Medical tablet Branch emtricitabi 2021-0 3- No [id number] Take one Univers ne-arianofovi 02-01- po daily ity of r alafen 00:00: 00:00 [place] (DESCOVY) 00 :00 Medical tablet Branch naproxen 2021-0 Yes [id number] 500mg Take 1 U nivers (NAPROSYN) 7-24 tablet by ity of 500 mg 00:00: mouth in [place] tablet 00 the Medical morning Branch and 1 tablet in the evening. Take with meals. methocarbam 2021-0 Yes [id number] 500mg Take 1 Univers oL 500 mg 7-24 tablet by ity o f tablet 00:00: mouth 4 [place] ([facility]) Medical times [place] daily. naproxen 2021-0 Yes [id number] 500mg Take 1 U nivers (NAPROSYN) 7-24 tablet by ity of 500 mg 00:00: mouth in [place] tablet 00 the Medical morning Branch and 1 tablet in the evening. Take with meals. methocarbam 2021-0 Yes [id number] 500mg Take 1 Univers oL 500 mg 7-24 tablet by ity o f tablet 00:00: mouth 4 [place] ([facility]) Medical times Branch daily. naproxen 2-0 Yes [id number] 500mg Take 1 U nivers (NAPROSYN) 7-24 tablet by ity of 500 mg 00:00: mouth in [place] tablet 00 the Medical morning Branch and 1 tablet in the evening. Take with meals. methocarbam 2022-0 Yes [id number] 500mg Take 1 Univers oL 500 mg 7-24 tablet by ity o f tablet 00:00: mouth 4 [place] ([facility]) Medical times Branch daily. naproxen 2-0 2022- No [id number] 500mg Take 1 Univers (NAPROSYN) 7-24 10-14 tablet by ity of 500 mg 00:00: 00:00 mouth in [place] tablet 00 :00 the Medical morning Branch and 1 tablet in the evening. Take with meals. methocarbam 2021- No [id number] 500mg Take 1 Univers oL 500 mg 12-13 tablet by ity of tablet 00:00: 00:00 mouth 4 [place] 00 :00 (four) Medical times Branch daily. naproxen 2021- No [id number] 500mg Take 1 Univers (NAPROSYN) 12-13 tablet by ity of 500 mg 00:00: 00:00 mouth in [place] tablet 00 :00 the Medical morning Branch and 1 tablet in the evening. Take with meals. methocarbam 2021- No [id number] 500mg Take 1 Univers oL 500 mg 12-13 tablet by ity of tablet 00:00: 00:00 mouth 4 [place] 00 :00 (four) Medical times Branch daily. esomeprazol 2021- No 40mg Take 40 mg Univers e (NEXIUM) 11-20 by mouth 2 it y of 40 mg 09:12: 00:00 (two) [place] capsule 03 :00 times Medical daily. Branch amiodarone No 100mg Take 100 U nivers 100 mg 11-20 mg by ity of tablet 09:11: 00:00 mouth [place] 57 :00 daily. Medical Branch apixaban No 5mg Take 5 mg Uni vers (ELIQUIS) 5 11-20 by mouth 2 i ty of mg tablet 09:11: 00:00 (two) [place] 35 :00 times Medical daily. Branch traZODONE 2021- No Take by [facility] ers (DESYREL) 11-20 mouth at ity o f 10 mg/mL 09:10: 00:00 bedtime. [place] oral 28 :00 Medical suspension Branch hydralAZINE Yes 25mg Take 25 mg Univers (APRESOLINE 11-20 by mouth ity of ) 25 mg 08:47: daily. [place] tablet 47 Medical Branch cephALEXin 2021- No [id number] 500mg Take 1 Univers (KEFLEX) 10-24 capsule [...] 7-10). Indication s: acute pain buPROPion Yes [id number] 150mg Take 1 U nivers XL 4-12 tablet by ity of (WELLBUTRIN 00:00: mouth [place] XL) 150 mg 00 daily. Medical 24 hr Branch tablet busPIRone Yes [id number] 30mg Take 1 Un matt 30 mg 4-12 tablet by ity of tablet 00:00: mouth 2 [place] 00 (two) Medical times Branch daily. SERTraline Yes [id number] 200mg Take 2 Univers 100 mg 4-12 tablets by ity of tablet 00:00: mouth [place] 00 daily. Medical Branch buPROPion Yes [id number] 150mg Take 1 U nivers XL 4-12 tablet by ity of (WELLBUTRIN 00:00: mouth [place] XL) 150 mg 00 daily. Medical 24 hr Branch tablet busPIRone 2021-0 Yes [id number] 30mg Take 1 Un matt 30 mg 4-12 tablet by ity of tablet 00:00: mouth 2 [place] 00 (two) Medical times Branch daily. SERTraline 2021-0 Yes [id number] 200mg Take 2 Univers 100 mg 4-12 tablets by ity of tablet 00:00: mouth [place] 00 daily. Medical Branch buPROPion 2021-0 Yes [id number] 150mg Take 1 U nivers XL 4-12 tablet by ity of (WELLBUTRIN 00:00: mouth [place] XL) 150 mg 00 daily. Medical 24 hr Branch tablet busPIRone 2021-0 Yes [id number] 30mg Take 1 Un matt 30 mg 4-12 tablet by ity of tablet 00:00: mouth 2 [place] 00 (two) Medical times Branch daily. SERTraline 2021-0 Yes [id number] 200mg Take 2 Univers 100 mg 4-12 tablets by ity of tablet 00:00: mouth [place] 00 daily. Medical Branch buPROPion 2021-0 Yes [id number] 150mg Take 1 U nivers XL 4-12 tablet by ity of (WELLBUTRIN 00:00: mouth [place] XL) 150 mg 00 daily. Medical 24 hr Branch tablet busPIRone 2021-0 Yes [id number] 30mg Take 1 Un matt 30 mg 4-12 tablet by ity of tablet 00:00: mouth 2 [place] 00 (two) Medical times Branch daily. SERTraline 2021-0 Yes [id number] 200mg Take 2 Univers 100 mg 4-12 tablets by ity of tablet 00:00: mouth [place] 00 daily. Medical Branch buPROPion 2021-0 Yes [id number] 150mg Take 1 U nivers XL 4-12 tablet by ity of (WELLBUTRIN 00:00: mouth [place] XL) 150 mg 00 daily. Medical 24 hr Branch tablet busPIRone 2021-0 Yes [id number] 30mg Take 1 Un matt 30 mg 4-12 tablet by ity of tablet 00:00: mouth 2 [place] 00 (two) Medical times Branch daily. SERTraline 2021-0 Yes [id number] 200mg Take 2 Univers 100 mg 4-12 tablets by ity of tablet 00:00: mouth [place] 00 daily. Medical Branch buPROPion 2021-0 Yes [id number] 150mg Take 1 U nivers XL 4-12 tablet by ity of (WELLBUTRIN 00:00: mouth [place] XL) 150 mg 00 daily. Medical 24 hr Branch tablet busPIRone 2021-0 Yes [id number] 30mg Take 1 Un matt 30 mg 4-12 tablet by ity of tablet 00:00: mouth 2 [place] 00 (two) Medical times Branch daily. SERTraline 2021-0 Yes [id number] 200mg Take 2 Univers 100 mg 4-12 tablets by ity of tablet 00:00: mouth [place] 00 daily. Medical Branch buPROPion 2021-0 Yes [id number] 150mg Take 1 U nivers XL 4-12 tablet by ity of (WELLBUTRIN 00:00: mouth [place] XL) 150 mg 00 daily. Medical 24 hr Branch tablet busPIRone 2021-0 Yes [id number] 30mg Take 1 Un matt 30 mg 4-12 tablet by ity of tablet 00:00: mouth 2 [place] 00 (two) Medical times Branch daily. SERTraline 2021-0 Yes [id number] 200mg Take 2 Univers 100 mg 4-12 tablets by ity of tablet 00:00: mouth [place] 00 daily. Medical Branch buPROPion 2021-0 Yes [id number] 150mg Take 1 U nivers XL 4-12 tablet by ity of (WELLBUTRIN 00:00: mouth [place] XL) 150 mg 00 daily. Medical 24 hr Branch tablet busPIRone 2021-0 Yes [id number] 30mg Take 1 Un matt 30 mg 4-12 tablet by ity of tablet 00:00: mouth 2 [place] 00 (two) Medical times Branch daily. SERTraline 2021-0 Yes [id number] 200mg Take 2 Univers 100 mg 4-12 tablets by ity of tablet 00:00: mouth [place] 00 daily. Medical Branch buPROPion 2021-0 Yes [id number] 150mg Take 1 U nivers XL 4-12 tablet by ity of (WELLBUTRIN 00:00: mouth [place] XL) 150 mg 00 daily. Medical 24 hr Branch tablet busPIRone 2021-0 Yes [id number] 30mg Take 1 Un matt 30 mg 4-12 tablet by ity of tablet 00:00: mouth 2 [place] 00 (two) Medical times Branch daily. SERTraline 2021-0 Yes [id number] 200mg Take 2 Univers 100 mg 4-12 tablets by ity of tablet 00:00: mouth [place] 00 daily. Medical Branch buPROPion 2021-0 Yes [id number] 150mg Take 1 U nivers XL 4-12 tablet by ity of (WELLBUTRIN 00:00: mouth [place] XL) 150 mg 00 daily. Medical 24 hr Branch tablet busPIRone 2021-0 Yes [id number] 30mg Take 1 Un matt 30 mg 4-12 tablet by ity of tablet 00:00: mouth 2 [place] 00 (two) Medical times Branch daily. SERTraline 2021-0 Yes [id number] 200mg Take 2 Univers 100 mg 4-12 tablets by ity of tablet 00:00: mouth [place] 00 daily. Medical Branch buPROPion 2021-0 Yes [id number] 150mg Take 1 U nivers XL 4-12 tablet by ity of (WELLBUTRIN 00:00: mouth [place] XL) 150 mg 00 daily. Medical 24 hr Branch tablet busPIRone 2021-0 Yes [id number] 30mg Take 1 Un matt 30 mg 4-12 tablet by ity of tablet 00:00: mouth 2 [place] 00 (two) Medical times Branch daily. SERTraline 2021-0 Yes [id number] 200mg Take 2 Univers 100 mg 4-12 tablets by ity of tablet 00:00: mouth [place] 00 daily. Medical Branch buPROPion 2021-0 Yes [id number] 150mg Take 1 U nivers XL 4-12 tablet by ity of (WELLBUTRIN 00:00: mouth [place] XL) 150 mg 00 daily. Medical 24 hr Branch tablet busPIRone 2021-0 Yes [id number] 30mg Take 1 Un matt 30 mg 4-12 tablet by ity of tablet 00:00: mouth 2 [place] 00 (two) Medical times Branch daily. SERTraline 2021-0 Yes [id number] 200mg Take 2 Univers 100 mg 4-12 tablets by ity of tablet 00:00: mouth [place] 00 daily. Medical Branch buPROPion 2021-0 Yes [id number] 150mg Take 1 U nivers XL 4-12 tablet by ity of (WELLBUTRIN 00:00: mouth [place] XL) 150 mg 00 daily. Medical 24 hr Branch tablet busPIRone 2021-0 Yes [id number] 30mg Take 1 Un matt 30 mg 4-12 tablet by ity of tablet 00:00: mouth 2 [place] 00 (two) Medical times Branch daily. SERTraline 2021-0 Yes [id number] 200mg Take 2 Univers 100 mg 4-12 tablets by ity of tablet 00:00: mouth [place] 00 daily. Medical Branch buPROPion 2021-0 Yes [id number] 150mg Take 1 U nivers XL 4-12 tablet by ity of (WELLBUTRIN 00:00: mouth [place] XL) 150 mg 00 daily. Medical 24 hr Branch tablet busPIRone 2021-0 Yes [id number] 30mg Take 1 Un matt 30 mg 4-12 tablet by ity of tablet 00:00: mouth 2 [place] 00 (two) Medical times Branch daily. SERTraline 2021-0 Yes [id number] 200mg Take 2 Univers 100 mg 4-12 tablets by ity of tablet 00:00: mouth [place] 00 daily. Medical Branch buPROPion 2021-0 Yes [id number] 150mg Take 1 U nivers XL 4-12 tablet by ity of (WELLBUTRIN 00:00: mouth [place] XL) 150 mg 00 daily. Medical 24 hr Branch tablet busPIRone 2021-0 Yes [id number] 30mg Take 1 Un matt 30 mg 4-12 tablet by ity of tablet 00:00: mouth 2 00 (two) Medical times Branch daily. SERTraline 2021-0 Yes [id number] 200mg Take 2 Univers 100 mg 4-12 tablets by ity of tablet 00:00: mouth [place] 00 daily. Medical Branch buPROPion 2021-0 Yes [id number] 150mg Take 1 U nivers XL 4-12 tablet by ity of (WELLBUTRIN 00:00: mouth [place] XL) 150 mg 00 daily. Medical 24 hr Branch tablet busPIRone 2021-0 Yes [id number] 30mg Take 1 Un matt 30 mg 4-12 tablet by ity of tablet 00:00: mouth 2 (two) Medical times Branch daily. SERTraline 2021-0 Yes [id number] 200mg Take 2 Univers 100 mg 4-12 tablets by ity of tablet 00:00: mouth [place] 00 daily. Medical Branch buPROPion 2021-0 Yes [id number] 150mg Take 1 U nivers XL 4-12 tablet by ity of (WELLBUTRIN 00:00: mouth [place] XL) 150 mg 00 daily. Medical 24 hr Branch tablet busPIRone 2021-0 Yes [id number] 30mg Take 1 Un matt 30 mg 4-12 tablet by ity of tablet 00:00: mouth 2 (two) Medical times Branch daily. SERTraline 2021-0 Yes [id number] 200mg Take 2 Univers 100 mg 4-12 tablets by ity of tablet 00:00: mouth [place] 00 daily. Medical Branch buPROPion 2021-0 Yes [id number] 150mg Take 1 U nivers XL 4-12 tablet by ity of (WELLBUTRIN 00:00: mouth [place] XL) 150 mg 00 daily. Medical 24 hr Branch tablet busPIRone 2021-0 Yes [id number] 30mg Take 1 Un matt 30 mg 4-12 tablet by ity of tablet 00:00: mouth 2 (two) Medical times Branch daily. SERTraline 2021-0 Yes [id number] 200mg Take 2 Univers 100 mg 4-12 tablets by ity of tablet 00:00: mouth [place] 00 daily. Medical Branch buPROPion 2021-0 Yes [id number] 150mg Take 1 U nivers XL 4-12 tablet by ity of (WELLBUTRIN 00:00: mouth [place] XL) 150 mg 00 daily. Medical 24 hr Branch tablet busPIRone 2021-0 Yes [id number] 30mg Take 1 Un matt 30 mg 4-12 tablet by ity of tablet 00:00: mouth 2 [place] 00 (two) Medical times Branch daily. SERTraline 2021-0 Yes [id number] 200mg Take 2 Univers 100 mg 4-12 tablets by ity of tablet 00:00: mouth [place] 00 daily. Medical Branch buPROPion 2021-0 Yes [id number] 150mg Take 1 U nivers XL 4-12 tablet by ity of (WELLBUTRIN 00:00: mouth [place] XL) 150 mg 00 daily. Medical 24 hr Branch tablet busPIRone 2021-0 Yes [id number] 30mg Take 1 Un matt 30 mg 4-12 tablet by ity of tablet 00:00: mouth 2 [place] 00 (two) Medical times Branch daily. SERTraline 2021-0 Yes [id number] 200mg Take 2 Univers 100 mg 4-12 tablets by ity of tablet 00:00: mouth [place] 00 daily. Medical Branch buPROPion 2021-0 Yes [id number] 150mg Take 1 U nivers XL 4-12 tablet by ity of (WELLBUTRIN 00:00: mouth [place] XL) 150 mg 00 daily. Medical 24 hr Branch tablet busPIRone 2021-0 Yes [id number] 30mg Take 1 Un matt 30 mg 4-12 tablet by ity of tablet 00:00: mouth 2 [place] 00 (two) Medical times Branch daily. SERTraline 2021-0 Yes [id number] 200mg Take 2 Univers 100 mg 4-12 tablets by ity of tablet 00:00: mouth [place] 00 daily. Medical Branch buPROPion 2021-0 Yes [id number] 150mg Take 1 U nivers XL 4-12 tablet by ity of (WELLBUTRIN 00:00: mouth [place] XL) 150 mg 00 daily. Medical 24 hr Branch tablet busPIRone 2021-0 Yes [id number] 30mg Take 1 Un matt 30 mg 4-12 tablet by ity of tablet 00:00: mouth 2 [place] 00 (two) Medical times Branch daily. SERTraline 2021-0 Yes [id number] 200mg Take 2 Univers 100 mg 4-12 tablets by ity of tablet 00:00: mouth [place] 00 daily. Medical Branch raltegravir 2021-0 Yes [id number] 400mg Take 1 Univers (ISENTRESS) 3-28 tablet by ity of 400 mg 00:00: mouth 2 [place] tablet 00 (two) Medical times Branch daily. raltegravir 2021-0 Yes [id number] 400mg Take 1 Univers (ISENTRESS) 3-28 tablet by ity of 400 mg 00:00: mouth 2 [place] tablet 00 (two) Medical times Branch daily. raltegravir 2021-0 Yes [id number] 400mg Take 1 Univers (ISENTRESS) 3-28 tablet by ity of 400 mg 00:00: mouth 2 [place] tablet 00 (two) Medical times Branch daily. raltegravir 2021-0 Yes [id number] 400mg Take 1 Univers (ISENTRESS) 3-28 tablet by ity of 400 mg 00:00: mouth 2 [place] tablet 00 (two) Medical times Branch daily. raltegravir 2021-0 Yes [id number] 400mg Take 1 Univers (ISENTRESS) 3-28 tablet by ity of 400 mg 00:00: mouth 2 [place] tablet 00 (two) Medical times Branch daily. raltegravir 2021-0 Yes [id number] 400mg Take 1 Univers (ISENTRESS) 3-28 tablet by ity of 400 mg 00:00: mouth 2 [place] tablet 00 (two) Medical times Branch daily. raltegravir 2021-0 Yes [id number] 400mg Take 1 Univers (ISENTRESS) 3-28 tablet by ity of 400 mg 00:00: mouth 2 [place] tablet 00 (two) Medical times Branch daily. raltegravir 2021-0 Yes [id number] 400mg Take 1 Univers (ISENTRESS) 3-28 tablet by ity of 400 mg 00:00: mouth 2 [place] tablet 00 (two) Medical times Branch daily. raltegravir 2021-0 Yes [id number] 400mg Take 1 Univers (ISENTRESS) 3-28 tablet by ity of 400 mg 00:00: mouth 2 [place] tablet 00 (two) Medical times Branch daily. raltegravir 2022-0 Yes [id number] 400mg Take 1 Univers (ISENTRESS) 3-28 tablet by ity of 400 mg 00:00: mouth 2 [place] tablet 00 (two) Medical times Branch daily. raltegravir 2022-0 Yes [id number] 400mg Take 1 Univers (ISENTRESS) 3-28 tablet by ity of 400 mg 00:00: mouth 2 [place] tablet 00 (two) Medical times Branch daily. raltegravir 2022-0 Yes [id number] 400mg Take 1 Univers (ISENTRESS) 3-28 tablet by ity of 400 mg 00:00: mouth 2 [place] tablet 00 (two) Medical times Branch daily. raltegravir 2022-0 Yes [id number] 400mg Take 1 Univers (ISENTRESS) 3-28 tablet by ity of 400 mg 00:00: mouth 2 [place] tablet 00 (two) Medical times Branch daily. raltegravir 2-0 Yes [id number] 400mg Take 1 Univers (ISENTRESS) 3-28 tablet by ity of 400 mg 00:00: mouth 2 [place] tablet 00 (two) Medical times Branch daily. raltegravir 2022-0 Yes [id number] 400mg Take 1 Univers (ISENTRESS) 3-28 tablet by ity of 400 mg 00:00: mouth 2 [place] tablet 00 (two) Medical times Branch daily. raltegravir 2022-0 Yes [id number] 400mg Take 1 Univers (ISENTRESS) 3-28 tablet by ity of 400 mg 00:00: mouth 2 [place] tablet 00 (two) Medical times Branch daily. raltegravir 2022-0 Yes [id number] 400mg Take 1 Univers (ISENTRESS) 3-28 tablet by ity of 400 mg 00:00: mouth 2 [place] tablet 00 (two) Medical times Branch daily. raltegravir 2022-0 Yes [id number] 400mg Take 1 Univers (ISENTRESS) 3-28 tablet by ity of 400 mg 00:00: mouth 2 [place] tablet 00 (two) Medical times Branch daily. raltegravir 2022-0 Yes [id number] 400mg Take 1 [facility] (ISENTRESS) 3-28 tablet by ity of 400 mg 00:00: mouth 2 [place] tablet 00 (two) Medical times Branch daily. raltegravir Yes [id number] 400mg Take 1 [facility] (ISENTRESS) 3-28 tablet by ity of 400 mg 00:00: mouth 2 [place] tablet 00 (two) Medical times Branch daily. raltegravir 2022- No [id number] 400mg Take 1 [facility] (ISENTRESS) 3-28 05-08 tablet by it y of 400 mg 00:00: 00:00 mouth 2 [place] tablet 00 :00 (two) Medical times Branch daily. LORazepam 1 2021- No [id number] 1mg Take 1 [facility] mg tablet 3-10 [...] times a tablet day. emtricitabi 2021- No [id number] Take one [facility] ne-tenofovi 1-20 09-12 po daily ity of r alafen 00:00: 00:00 [place] (DESCOVY) 00 :00 Medical tablet Branch metoprolol Yes [id number] Take 1 [facility] tartrate 7-26 tablet [facility] (Lopressor) 00:00: (100 mg 100 MG 00 total) by tablet mouth 2 (two) times a day AND 0.5 tablets (50 mg total) every night. metoprolol Yes [id number] Take 1 [facility] tartrate 7-26 tablet [facility] [...] (affected area in groin) hydrALAZINE Yes 50mg Q.61449770 Take 50 mg [facility] (APRESOLINE 7-19 [id number] by mouth 3 st ) 50 MG [...] (affected area in groin) hydrALAZINE Yes 50mg Q.22599438 Take 50 mg [facility] (APRESOLINE 7-19 [id number] by mouth 3 st ) 50 MG [...] area in groin) hydrALAZINE 2021-0 Yes 50mg Q.[id number] Take 50 mg [facility] (APRESOLINE 7-19 [id number] [address] mouth 3 st ) 50 MG [...] (affected area in groin) hydrALAZINE Yes 50mg Q.71769721 Take 50 mg [facility] (APRESOLINE 7-19 [id number] by mouth 3 st ) 50 MG [...] (affected area in groin) hydrALAZINE Yes 50mg Q.35996395 Take 50 mg [facility] (APRESOLINE 7-19 [id number] by mouth 3 st ) 50 MG [...] area in groin) hydrALAZINE 0 Yes 50mg Q.96882172 Take 50 mg [facility] (APRESOLINE 7-[address]25[address] mouth 3 st ) 50 MG [...] (affected area in groin) hydrALAZINE Yes 50mg Q.23932263 Take 50 mg [facility] (APRESOLINE 7-19 [id number] [address] mouth 3 [address] ) 50 MG [...] (affected area in groin) hydrALAZINE Yes 50mg Q.83911236 Take 50 mg [facility] (APRESOLINE 7-19 [id number] mouth 3 [facility] ) 50 MG [...] area in groin) hydrALAZINE 0 Yes 50mg Q.75339848 Take 50 mg [facility] (APRESOLINE 7-19 [id number] [address] mouth 3 [address] ) 50 MG [...] area in groin) hydrALAZINE 0 Yes 50mg Q.80737569 Take 50 mg [facility] (APRESOLINE 7-19 1640712[address] mouth 3 [address] ) 50 MG [...] (affected area in groin) hydrALAZINE Yes 50mg Q.42069952 Take 50 mg [facility] (APRESOLINE - [id number] by mouth 3 st ) 50 MG [...] area in groin) hydrALAZINE 0 Yes 50mg Q.72816696 Take 50 mg [facility] (APRESOLINE -19 [id number] by mouth 3 [facility] ) 50 MG [...] area in groin) hydrALAZINE 2020-0 Yes 50mg Q.42002703 Take 50 mg [facility] (APRESOLINE 7-19 [id number] [address] mouth 3 [facility] ) 50 MG [...] (affected area in groin) hydrALAZINE Yes 50mg Q.99393849 Take 50 mg [facility] (APRESOLINE -19 [id number] [address] mouth 3 [address] ) 50 MG [...] area in groin) hydrALAZINE 0 Yes 50mg Q.34656230 Take 50 mg [facility] (APRESOLINE 7-19 [id number] [address] mouth 3 [address] ) 50 MG [...] area in groin) hydrALAZINE 2020-0 Yes 50mg Q.77440278 Take 50 mg [facility] (APRESOLINE 7-19 [id number] mouth 3 [address] ) 50 MG [...] area in groin) hydrALAZINE 0 Yes 50mg Q.76828087 Take 50 mg [facility] (APRESOLINE 7-[id number] mouth [address] ) 50 MG [...] (affected area in groin) hydrALAZINE Yes 50mg Q.94895307 Take 50 mg [facility] (APRESOLINE 7-19 [address]04903950 [address] mouth 3 [address] ) 50 MG [...] area in groin) hydrALAZINE 2020-0 Yes 50mg Q.13501865 Take 50 mg [facility] (APRESOLINE -19 [id number] [address] mouth [address] ) 50 MG [...] area in groin) hydrALAZINE 0 Yes 50mg Q.63591926 Take 50 mg [facility] (APRESOLINE 7-19 [id number] [address] mouth 3 [address] ) 50 MG [...] (affected area in groin) hydrALAZINE Yes 50mg Q.02485520 Take 50 mg [facility] (APRESOLINE 7-19 [id number] [address] mouth 3 [address] ) 50 MG [...] area in groin) hydrALAZINE 0 Yes 50mg Q.51913749 Take 50 mg [facility] (APRESOLINE -19 [id number] by mouth 3 [address] ) 50 MG [...] area in groin) hydrALAZINE 0 Yes 50mg Q.69497188 Take 50 mg [facility] (APRESOLINE 7-19 [id number] mouth 3 [address] ) 50 MG [...] (affected area in groin) hydrALAZINE Yes 50mg Q.79138592 Take 50 mg [facility] (APRESOLINE 7-19 [id number] [address] mouth 3 st ) 50 MG [...] area in groin) hydrALAZINE 0 Yes 50mg Q.48394107 Take 50 mg [facility] (APRESOLINE 7-19 [id number] mouth 3 [address] ) 50 MG [...] area in groin) hydrALAZINE 0 Yes 50mg Q.02819853 Take 50 mg [facility] (APRESOLINE 7-19 [id number] mouth 3 [address] ) 50 MG [...] (affected area in groin) hydrALAZINE Yes 50mg Q.22946743 Take 50 mg [facility] (APRESOLINE 7-19 [id number] mouth 3 [address] ) 50 MG [...] (affected area in groin) hydrALAZINE Yes 50mg Q.45443716 Take 50 mg [facility] (APRESOLINE 7-19 [id number] mouth 3 [address] ) 50 MG [...] area in groin) hydrALAZINE 0 Yes 50mg Q.80960913 Take 50 mg [facility] (APRESOLINE 7-19 54764[address] mouth [address] ) 50 MG [...] area in groin) hydrALAZINE 0 Yes 50mg Q.44405168 Take 50 mg [facility] (APRESOLINE 7-19 [id number] by mouth 3 [address] ) 50 MG [...] (affected area in groin) hydrALAZINE Yes 50mg Q.88567815 Take 50 mg [facility] (APRESOLINE 7-[id number] mouth 3 [address] ) 50 MG [...] (affected area in groin) hydrALAZINE Yes 50mg Q.98373590 Take 50 mg [facility] (APRESOLINE 7-19 [id number] mouth 3 [address] ) 50 MG [...] area in groin) hydrALAZINE 2021-0 Yes 50mg Q.27108183 Take 50 mg [facility] (APRESOLINE 7-[address] mouth 3 [address] ) 50 MG [...] (affected area in groin) hydrALAZINE Yes 50mg Q.09779109 Take 50 mg [facility] (APRESOLINE 7-[id number] mouth 3 [address] ) 50 MG [...] (affected area in groin) hydrALAZINE Yes 50mg Q.46862862 Take 50 mg [facility] (APRESOLINE 7-[id number] mouth 3 [address] ) 50 MG [...] area in groin) hydrALAZINE 0 Yes 50mg Q.44880623 Take 50 mg [facility] (APRESOLINE 7-19 [address] mouth 3 [address] ) 50 MG [...] (affected area in groin) hydrALAZINE Yes 50mg Q.19713001 Take 50 mg [facility] (APRESOLINE 7-19 [id number] [address] mouth 3 [address] ) 50 MG [...] (affected area in groin) hydrALAZINE Yes 50mg Q.33752144 Take 50 mg [facility] (APRESOLINE 7-19 [id number] by mouth 3 [address] ) 50 MG [...] area in groin) hydrALAZINE 0 Yes 50mg Q.05205615 Take 50 mg [facility] (APRESOLINE 7-[address] mouth 3 [address] ) 50 MG [...] area in groin) hydrALAZINE 0 Yes 50mg Q.07993568 Take 50 mg [facility] (APRESOLINE 7-19 [id number] mouth 3 [address] ) 50 MG [...] (affected area in groin) hydrALAZINE Yes 50mg Q.67289071 Take 50 mg [facility] (APRESOLINE 7-[address] mouth 3 [address] ) 50 MG [...] area in groin) hydrALAZINE 0 Yes 50mg Q.01510336 Take 50 mg [facility] (APRESOLINE 7-[address] mouth 3 [address] ) 50 MG [...] area in groin) hydrALAZINE 0 Yes 50mg Q.24294012 Take 50 mg [facility] (APRESOLINE 7-[id number] mouth 3 [address] ) 50 MG [...] (affected area in groin) hydrALAZINE Yes 50mg Q.52136536 Take 50 mg [facility] (APRESOLINE 7-[address]33[address] mouth 3 [address] ) 50 MG [...] area in groin) hydrALAZINE 0 Yes 50mg Q.54876245 Take 50 mg [facility] (APRESOLINE 7-[address] mouth 3 [address] ) 50 MG [...] area in groin) hydrALAZINE 0 Yes 50mg Q.33552359 Take 50 mg [facility] (APRESOLINE 7-[address] mouth 3 [address] ) 50 MG [...] (affected area in groin) hydrALAZINE Yes 50mg Q.24408807 Take 50 mg [facility] (APRESOLINE 7-[id number] mouth 3 [address] ) 50 MG [...] (affected area in groin) hydrALAZINE Yes 50mg Q.02407754 Take 50 mg [facility] (APRESOLINE 7-[address] mouth 3 [address] ) 50 MG [...] area in groin) hydrALAZINE 0 Yes 50mg Q.22130993 Take 50 mg [facility] (APRESOLINE 7-[address]75[address] mouth 3 [address] ) 50 MG [...] (affected area in groin) hydrALAZINE Yes 50mg Q.69984209 Take 50 mg [facility] (APRESOLINE 7-[id number] mouth 3 [address] ) 50 MG [...] (affected area in groin) hydrALAZINE Yes 50mg Q.92806990 Take 50 mg [facility] (APRESOLINE 7-[id number] mouth 3 [address] ) 50 MG [...] area in groin) hydrALAZINE 0 Yes 50mg Q.[id number] Take 50 mg [facility] (APRESOLINE 7-[id number] mouth 3 [address] ) 50 MG [...] area in groin) hydrALAZINE 0 Yes 50mg Q.71779834 Take 50 mg [facility] (APRESOLINE 7-[id number] mouth [address] ) 50 MG [...] (affected area in groin) hydrALAZINE Yes 50mg Q.19915264 Take 50 mg [facility] (APRESOLINE 7-[address] mouth 3 [address] ) 50 MG [...] area in groin) hydrALAZINE 0 Yes 50mg Q.91086657 Take 50 mg [facility] (APRESOLINE 7-[address] mouth 3 [address] ) 50 MG [...] area in groin) hydrALAZINE 2020-0 Yes 50mg Q.54532155 Take 50 mg [facility] (APRESOLINE 7-[address] mouth 3 [address] ) 50 MG [...] (affected area in groin) hydrALAZINE Yes 50mg Q.[id number] Take 50 mg [facility] (APRESOLINE 7-[id number] mouth 3 [address] ) 50 MG [...] area in groin) hydrALAZINE 0 Yes 50mg Q.[id number] Take 50 mg [facility] (APRESOLINE 7-19 [id number] by mouth 3 [address] ) 50 MG [...] [facility] tablet 25 l nystatin-tr 2020-0 Yes [id number] Apply to [facility] iainolone 7-06 area(s) 3 ity of cream 00:00: (three) [place] 00 times Medical daily. Branch nystatin-tr 2020-0 Yes [id number] Apply to [facility] iainolone 7-06 area(s) 3 ity of cream 00:00: (three) [place] 00 times Medical daily. Branch nystatin-tr 2021-0 Yes [id number] [facility] 3 ity of cream 00:00: (three) [place] 00 times Medical daily. Branch nystatin-tr 2021-0 Yes [id number] Apply to [facility] iainolone 7-06 area(s) 3 ity of cream 00:00: (three) [place] 00 times Medical daily. Branch nystatin-tr 2021-0 Yes [id number] Apply to [facility] iamcinolone 7-06 area(s) 3 ity of cream 00:00: (three) [place] 00 times Medical daily. Branch nystatin-tr 2021-0 Yes [id number] Apply to [facility] iamcinolone 7-06 area(s) 3 ity of cream 00:00: (three) [place] 00 times Medical daily. Branch nystatin-tr 2021-0 Yes [id number] Apply to [facility] iamcinolone 7-06 area(s) 3 ity of cream 00:00: (three) [place] 00 times Medical daily. Branch nystatin-tr 2021-0 Yes [id number] Apply to [facility] iamcinolone 7-06 area(s) 3 ity of cream 00:00: (three) [place] 00 times Medical daily. Branch nystatin-tr 2021-0 Yes [id number] Apply to [facility] iamcinolone 7-06 area(s) 3 ity of cream 00:00: (three) [place] 00 times Medical daily. Branch nystatin-tr 2021-0 Yes [id number] Apply to [facility] iamcinolone 7-06 area(s) 3 ity of cream 00:00: (three) [place] 00 times Medical daily. Branch nystatin-tr 2021-0 Yes [id number] Apply to [facility] iamcinolone 7-06 area(s) 3 ity of cream 00:00: (three) [place] 00 times Medical daily. Branch nystatin-tr 2021-0 Yes [id number] Apply to [facility] iamcinolone 7-06 area(s) 3 ity of cream 00:00: (three) [place] 00 times Medical daily. Branch nystatin-tr 2021-0 Yes [id number] Apply to [facility] iamcinolone 7-06 area(s) 3 ity of cream 00:00: (three) [place] 00 times Medical daily. Branch nystatin-tr 2021-0 Yes [id number] Apply to [facility] iamcinolone 7-06 area(s) 3 ity of cream 00:00: (three) [place] 00 times Medical daily. Branch nystatin-tr 2021-0 Yes [id number] Apply to [facility] iamcinolone 7-06 area(s) 3 ity of cream 00:00: (three) [place] 00 times Medical daily. Branch nystatin-tr 2021-0 Yes [id number] Apply to [facility] iamcinolone 7-06 area(s) 3 ity of cream 00:00: (three) [place] 00 times Medical daily. Branch nystatin-tr 1-0 Yes [id number] Apply to [facility] iamcinolone 7-06 area(s) 3 ity of cream 00:00: (three) [place] 00 times Medical daily. Branch nystatin-tr 2021-0 Yes [id number] Apply to [facility] iamcinolone 7-06 area(s) 3 ity of cream 00:00: (three) [place] 00 times Medical daily. Branch nystatin-tr 1-0 Yes [id number] Apply to [facility] iamcinolone 7-06 area(s) 3 ity of cream 00:00: (three) [place] 00 times Medical daily. Branch nystatin-tr 1-0 Yes [id number] Apply to [facility] iamcinolone 7-06 area(s) 3 ity of cream 00:00: (three) [place] 00 times Medical daily. Branch nystatin-tr 1-0 Yes [id number] Apply to [facility] iamcinolone 7-06 area(s) 3 ity of cream 00:00: (three) [place] 00 times Medical daily. Branch nystatin-tr 1-0 Yes [id number] Apply to [facility] iamcinolone 7-06 area(s) 3 ity of cream 00:00: (three) [place] 00 times Medical daily. Laurie budesonide- 2020-0 2020- No 1{puff} QD Inhale 1 [facility] formoteroL 6-25 06-[address] (SYMBICORT) 14:37: 00:00 morning. H ospita 160-4.5 02 :00 l mcg/actuati on inhaler hydrALAZINE 0 Yes [id number] 50mg Q.[id number] Take 1 [facility] (Apresoline 6-11 [id number] tablet (50 Health ) 50 MG 00:00: 3D mg total) tablet 00 by mouth 3 (three) times a day. hydrALAZINE 0 Yes [id number] 50mg Q.[id number] Take 1 [facility] (Apresoline 6-11 [id number] tablet (50 Health ) 50 MG 00:00: 3D mg total) tablet 00 by mouth 3 (three) times a day. Armeni Yes [facility] Aerosphere -09 Health 160-9-4.8 00:00: [...] % 00:00: ointment 00 nystatin 2020- No [id number] Q.25D Take 5 mL [facility] (MYCOSTATIN 10-06 [...] ia 4-10 (Same as: l 14:00: Norvasc) [place] 00 emtricitabi No Notes: Caesar lisa ne 200 MG / 4-10 (Same as: l tenofovir 14:00: Descovy) Herm ariel alafenamide 00 Non-formul 25 MG Oral nancy Tablet [Descovy] pantoprazol No Notes: [place] lisa e 4-10 Tablet l 14:00: should not [place] 00 be chewed or crushed. (Same as: Protonix) Amiodarone No Notes: Memor ia 4-10 (Same as: l 14:00: Cordarone) [place] 00 Amlodipine No Notes: Memor ia 4-10 (Same as: l 14:00: Norvasc) [place] emtricitabi No Notes: Caesar lisa ne [...] ia 4-10 (Same as: l 14:00: Cordarone) [place] Amlodipine No Notes: Memor ia 4-10 (Same as: l 14:00: Norvasc) [place] 00 emtricitabi No Notes: [place] lisa ne 200 MG / 4-10 (Same as: l tenofovir 14:00: Descovy) Herm ariel alafenamide 00 Non-formul 25 MG Oral nancy Tablet [Descovy] Sertraline No Notes: Memor ia 4-10 (Same as: l 14:00: Zoloft) [place] 00 pantoprazol No Notes: [place] lisa e 4-10 Tablet l 14:00: should not [place] 00 be chewed or crushed. (Same as: Protonix) Amiodarone No Notes: Memor ia 4-10 (Same as: l 14:00: Cordarone) [place] Amlodipine No Notes: Memor ia 4-10 (Same as: l 14:00: Norvasc) [place] emtricitabi No Notes: Caesar lisa ne 200 MG / 4-10 (Same as: l tenofovir 14:00: Descovy) Herm ariel alafenamide 00 Non-formul 25 MG Oral nancy Tablet [Descovy] Sertraline No Notes: Memor ia 4-10 (Same as: l 14:00: Zoloft) [place] pantoprazol No Notes: [place] lisa e 4-10 Tablet l 14:00: should not [place] 00 be chewed or crushed. (Same as: Protonix) Amiodarone No Notes: Memor ia 4-10 (Same as: l 14:00: Cordarone) [place] Amlodipine No Notes: Memor ia 4-10 (Same as: l 14:00: Norvasc) [place] emtricitabi No Notes: Caesar lisa ne 200 MG / 4-10 (Same as: l tenofovir 14:00: Descovy) Herm ariel alafenamide 00 Non-formul 25 MG Oral nancy Tablet [Descovy] Sertraline No Notes: Memor ia 4-10 (Same as: l 14:00: Zoloft) [place] pantoprazol No Notes: [place] lisa e 4-10 Tablet l 14:00: should not [place] 00 be chewed or crushed. (Same [...] ia 4-10 (Same as: l 14:00: Zoloft) [place] 00 pantoprazol No Notes: [place] lisa e 4-10 Tablet l 14:00: should not [place] 00 be chewed or crushed. (Same [...] e 4-10 Tablet l 14:00: should not [place] 00 be chewed or crushed. (Same as: Protonix) Amiodarone No Notes: Memor ia 4-10 (Same as: l 14:00: Cordarone) Sucralfate No Notes: May M emoria 4-10 interfere l 02:00: w/enteral [place] 00 feeds - Take 1 hr [...] M emoria 4-10 interfere l 02:00: w/enteral [place] 00 feeds - Take 1 hr before or 2 hr after antacids, dairy pdt, meals & minerals - On empty stomach. For patients unable to swallow tablet, dissolve in 10mL - 30mL of water or juice and stir before giving. (Same As: Carafate) Saline No Notes: [facility]oria Flush 0.9% 4-10 (Same as: l 02:00: BD [place] 00 Posiflush) Eliquis No Notes: Memoria [...] Memoria 4-10 Same as: l 02:00: Eliquis [place] Hydralazine No Notes: Caesar lisa Hydrochlori [...] 0.9% 4-10 (Same as: l 02:00: BD [place] 00 Posiflush) Eliquis 2021-0 No Notes: Memoria 4-10 Same as: l 02:00: Eliquis [place] Hydralazine No Notes: Caesar lisa Hydrochlori 4-10 (Same as: l de 50 MG 02:00: Apresoline Her mit[place] Oral Tablet 00 ) May interfere w/enteral feedings Take With Food Sucralfate No Notes: May M emoria 4-10 interfere l 02:00: w/enteral [place] 00 feeds - Take 1 hr before or 2 hr after antacids, dairy pdt, meals & minerals - On empty stomach. For patients unable to swallow tablet, dissolve in 10mL - 30mL of water or juice and stir before giving. (Same As: Carafate) Saline No Notes: [facility] Flush 0.9% 4-10 (Same as: l 02:00: BD [place] Posiflush) Eliquis No Notes: Memoria 4-10 Same [...] not exceed l #3 00:12: 4gm/day of [place] acetaminop hen. (Same as: Tylenol with Codeine # 3) acetaminoph No Notes: Do M emoria en-codeine 4-10 not exceed l #3 00:12: 4gm/day of [place] acetaminop hen. (Same as: Tylenol with Codeine # 3) acetaminoph No Notes: Do M emoria en-codeine 4-10 not exceed l #3 00:12: 4gm/day of [place] acetaminop hen. (Same as: Tylenol with Codeine # 3) acetaminoph No Notes: Do M emoria en-codeine 4-10 not exceed l #3 00:12: 4gm/day of [place] acetaminop hen. (Same as: Tylenol with Codeine # 3) acetaminoph No Notes: Do M emoria en-codeine 4-10 not exceed l #3 00:12: 4gm/day of [place] acetaminop hen. (Same as: Tylenol with Codeine [...] tartrate 4-09 tab, l 22:00: Route: PO, [place] 00 Drug form: TAB, BID, Dosing [...] tartrate 4-09 tab, l 22:00: Route: PO, [place] 00 Drug form: TAB, BID, Dosing [...] Notes: Memoria 4-09 (Same l 17:07: as:MORPhin [place] 00 e Sulfate) Morphine No Notes: Memoria 4-09 (Same l 17:07: as:MORPhin [place] 00 e Sulfate) Morphine No Notes: [facility]oria 4-09 (Same l 17:07: as:MORPhin [place] 00 e Sulfate) Morphine No Notes: Memoria 4-09 (Same l 17:07: as:MORPhin [place] 00 e Sulfate) Morphine No Notes: [facility]oria 4-09 (Same l 17:07: as:MORPhin [place] 00 e Sulfate) Morphine No Notes: Memoria 4-09 (Same l 17:07: as:MORPhin [place] 00 e Sulfate) Morphine No Notes: [...] tab, 0 coated Refill(s), tablet Pharmacy: [facility] 149, 162.56, cm, 08/29/20 5:30:00 CDT, Height, 97.273, kg, 08/29/20 5:30:00 CDT, Weight pantoprazol 1-0 Yes 40 mg = 1 M emoria e 40 mg 4-09 tab, PO, l oral 15:27: Daily, # [place] enteric 00 30 tab, 0 coated Refill(s), tablet Pharmacy: [facility] 149, 162.56, cm, 08/29/20 5:30:00 CDT, Height, 97.273, kg, 08/29/20 5:30:00 CDT, Weight pantoprazol 1-0 Yes 40 mg = 1 M emoria e 40 mg 4-09 tab, PO, l oral 15:27: Daily, # [place] enteric 00 30 tab, 0 coated Refill(s), tablet Pharmacy: [facility], 162.56, cm, 08/29/20 5:30:00 CDT, Height, 97.273, kg, 08/29/20 5:30:00 CDT, Weight pantoprazol 1-0 Yes 40 mg = 1 M emoria e 40 mg 4-09 tab, PO, l oral 15:27: Daily, # [place] enteric 00 30 tab, 0 coated Refill(s), tablet Pharmacy: [facility] 149, 162.56, cm, 08/29/20 5:30:00 CDT, Height, 97.273, kg, 08/29/20 5:30:00 CDT, Weight pantoprazol 1-0 Yes 40 mg = 1 M emoria e 40 mg 4-09 tab, PO, l oral 15:27: Daily, # [place] enteric 00 30 tab, 0 coated Refill(s), tablet Pharmacy: [facility], 162.56, cm, 08/29/20 5:30:00 CDT, Height, 97.273, kg, 08/29/20 5:30:00 CDT, Weight pantoprazol 2021-0 Yes 40 mg = 1 M emoria e 40 mg 4-09 tab, PO, l oral 15:27: Daily, # [place] enteric 00 30 tab, 0 coated Refill(s), tablet Pharmacy: [facility] 149, 162.56, cm, 08/29/20 5:30:00 CDT, Height, 97.273, kg, 08/29/20 5:30:00 CDT, Weight pantoprazol 2020-0 Yes 40 mg = 1 M emoria e 40 mg 4-09 tab, PO, l oral 15:27: Daily, # [place] enteric 00 30 tab, 0 coated Refill(s), tablet Pharmacy: [facility] 149, 162.56, cm, 08/29/20 5:30:00 CDT, Height, 97.273, kg, 08/29/20 5:30:00 CDT, Weight pantoprazol 2020-0 No 40 mg = 1 M emoria e 40 mg 4-09 tab, PO, l oral 15:26: Daily, # [place] enteric 00 30 tab, 0 coated Refill(s) tablet sucralfate 2020-0 Yes 1 gm = 1 Mem oria 1 g oral 4-09 tab, PO, l tablet 15:26: Q12H, # 28 Skylar nn 00 tab, 0 Refill(s), Pharmacy: [facility] 149, 162.56, cm, 08/29/20 5:30:00 CDT, Height, 97.273, kg, 08/29/20 5:30:00 CDT, Weight pantoprazol 2020-0 No 40 mg = 1 M emoria e 40 mg 4-09 tab, PO, l oral 15:26: Daily, # [place] enteric 00 30 tab, 0 coated Refill(s) tablet sucralfate 2020-0 Yes 1 gm = 1 Mem oria 1 g oral 4-09 tab, PO, l tablet 15:26: Q12H, # 28 Skylar nn 00 tab, 0 Refill(s), Pharmacy: [facility] 149, 162.56, cm, 08/29/20 [...] nn 00 tab, 0 Refill(s), Pharmacy: [facility] 149, 162.56, cm, 08/29/20 [...] nn 00 tab, 0 Refill(s), Pharmacy: [facility] 149, 162.56, cm, 08/29/20 5:30:00 CDT, Height, 97.273, kg, 08/29/20 5:30:00 CDT, Weight pantoprazol 2020-0 No 40 mg = 1 M emoria e 40 mg 4-09 tab, PO, l oral 15:26: Daily, # [place] enteric 00 30 tab, 0 coated Refill(s) tablet sucralfate 2020-0 Yes 1 gm = 1 Mem oria 1 g oral 4-09 tab, PO, l tablet 15:26: Q12H, # 28 Skylar nn 00 tab, 0 Refill(s), Pharmacy: [facility] 149, 162.56, cm, 08/29/20 [...] nn 00 tab, 0 Refill(s), Pharmacy: [facility] 149, 162.56, cm, 08/29/20 5:30:00 CDT, Height, 97.273, kg, 08/29/20 5:30:00 CDT, Weight pantoprazol No 40 mg = 1 M emoria e 40 mg 4-09 tab, PO, l oral 15:26: Daily, # [place] enteric 00 30 tab, 0 coated Refill(s) tablet sucralfate Yes 1 gm = 1 Mem oria 1 g oral 4-09 tab, PO, l tablet 15:26: Q12H, # 28 Skylar nn 00 tab, 0 Refill(s), Pharmacy: [facility] 149, 162.56, cm, 08/29/20 5:30:00 CDT, Height, 97.273, kg, 08/29/20 5:30:00 CDT, Weight Saline No Notes: Memoria Flush 0.9% 4-09 (Same as: l 15:25: BD [place] 00 Posiflush) Lorazepam No Notes: Memori a 4-09 (Same as: l 15:25: Ativan) Saline No Notes: Memoria Flush 0.9% 4-09 (Same as: l 15:25: BD [place] 00 Posiflush) Lorazepam No Notes: Memori a 4-09 (Same as: l 15:25: Ativan) Saline No Notes: Memoria Flush 0.9% 4-09 (Same as: l 15:25: BD [place] 00 Posiflush) Saline No Notes: Memoria Flush 0.9% 4-09 (Same as: l 15:25: BD [place] 00 Posiflush) Lorazepam No Notes: Memori a 4-09 (Same as: l 15:25: Ativan) [place] Lorazepam No Notes: Memori a 4-09 (Same as: l 15:25: Ativan) [place] Saline No Notes: Memoria Flush 0.9% 4-09 (Same as: l 15:25: BD [place] 00 Posiflush) Lorazepam 2021-0 No Notes: Memori [...] Drug form: l mg + 15:00: INJ, [place] 00 Dosing Weight 97.3, kg, Start date: 08/29/20 10:00:00 CDT, Stop date: 08/29/20 11:00:00 CDT Isuprel HCl No Route: IV, Memoria (ANES) 0.2 08-29 Drug form: l mg + 15:00: INJ, [place] 00 Dosing Weight 97.3, kg, Start date: 08/29/20 10:00:00 CDT, Stop date: 08/29/20 11:00:00 CDT Isuprel HCl 0 No Route: IV, Memoria (ANES) 0.2 08-29 Drug form: l mg + 15:00: INJ, [place] 00 Dosing Weight 97.3, kg, Start [...] Memori a 08-29 Route: l 14:01: IVP, [place] 00 Q5Min, Dosing Weight 97.273, kg, [...] Memori a 08-29 Route: l 14:01: IVP, [place] 00 Q2MIN, Dosing Weight 97.273, kg, PRN Narcotic Reversal, Start date: 08/29/20 9:01:00 CDT, Duration: 8 doses or times, Stop date: Limited # of times Ondansetron 1-0 No 4 mg, Memor ia 08-29 Route: l 14:01: IVP, ONCE, [place] 00 Dosing Weight 97.273, kg, PRN Nausea & Vomiting, Start date: 08/29/20 9:01:00 CDT Labetalol 1-0 No 10 mg, Memori a 08-29 Route: l 14:01: IVP, [place] 00 Q5Min, Dosing Weight 97.273, kg, [...] lisa 08-29 Route: l 14:01: IVP, PRN, [place] 00 Dosing Weight 97.273, kg, PRN Benzodiaze pine Reversal, Initial dose, Start date: 08/29/20 9:01:00 CDT, Duration: 30 day, Stop date: 09/28/20 9:00:00 CDT Naloxone 1-0 No 0.4 mg, [facility] 08-29 Route: l 14:01: IVP, [place] 00 Q2MIN, Dosing Weight 97.273, kg, [...] Memori a 08-29 Route: l 14:01: IVP, [place] 00 Q5Min, Dosing Weight 97.273, kg, [...] oria ne 08-29 Route: l 14:01: IVP, [place] 00 Q5Min, Dosing Weight 97.273, kg, [...] [facility] a 08-29 Route: l 14:01: IVP, [place] 00 Q2MIN, Dosing Weight 97.273, kg, PRN Narcotic Reversal, Start date: 08/29/20 9:01:00 CDT, Duration: 8 doses or times, Stop date: Limited # of times Ondansetron 1-0 No 4 mg, [facility] 08-29 Route: l 14:01: IVP, ONCE, [place] 00 Dosing Weight 97.273, kg, PRN [...] Memori a 08-29 Route: l 14:01: IVP, [place] 00 Q5Min, Dosing Weight 97.273, kg, [...] oria ne 08-29 Route: l 14:01: IVP, [place] 00 Q5Min, Dosing Weight 97.273, kg, [...] ia 08-29 Route: l 14:01: IVP, ONCE, [place] 00 Dosing Weight 97.273, kg, PRN [...] lisa 08-29 Route: l 14:01: IVP, PRN, [place] 00 Dosing Weight 97.273, kg, PRN [...] Memori a 08-29 Route: l 14:01: IVP, [place] 00 Q5Min, Dosing Weight 97.273, kg, PRN Elevated BP, Start date: 08/29/20 9:01:00 CDT, Duration: 5 doses or times, Stop date: Limited # of times Acetaminoph 2020-0 No 1,000 mg, M emoria en 08-29 Route: PO, l 14:01: Drug form: [place] 00 TAB, ONCE, Dosing Weight 97.273, [...] oria ne 08-29 Route: l 14:01: IVP, [place] 00 Q5Min, Dosing Weight 97.273, kg, PRN Pain Score 7-10, Start date: 08/29/20 9:01:00 CDT, Duration: 4 doses or times, Stop date: Limited # of times Flumazenil 1-0 No 0.2 mg, Caesar lisa 08-29 Route: l 14:01: IVP, PRN, [place] 00 Dosing Weight 97.273, kg, PRN [...] Drug form: l 10 13:15: INJ, Start [place] microgram 00 date: 08/29/20 8:15:00 CDT, Stop date: 08/29/20 9:15:00 CDT norepinephr 2020-0 No Route: IV, Memoria ine (ANES) 08-29 Drug form: l 10 13:15: INJ, Start [place] microgram date: 08/29/20 8:15:00 CDT, Stop date: 08/29/20 9:15:00 CDT norepinephr 2020-0 No Route: IV, Memoria ine (ANES) 08-29 Drug form: l 10 13:15: INJ, Start [place] microgram date: 08/29/20 8:15:00 CDT, Stop date: 08/29/20 9:15:00 CDT norepinephr 2020-0 No Route: IV, Memoria ine (ANES) 08-29 Drug form: l 10 13:15: INJ, Start [place] microgram date: 08/29/20 8:15:00 CDT, Stop date: 08/29/20 9:15:00 CDT norepinephr 2020-0 No Route: IV, Memoria ine (ANES) 08-29 Drug form: l 10 13:15: INJ, Start [place] microgram 00 date: 08/29/20 8:15:00 CDT, Stop [...] 4-09 Total l 0.9% IV 12:30: Volume: [place] (ANES) 1000 00 1,000, mL Start date: 08/29/20 7:30:00 CDT, Stop date: 08/29/20 8:30:00 CDT Sodium 2021-0 No Route: IV, Memor ia Chloride 4-09 Total l 0.9% IV 12:30: Volume: [place] (ANES) 1000 00 1,000, mL Start date: 08/29/20 7:30:00 CDT, Stop date: 08/29/20 8:30:00 CDT Sodium 2021-0 No Route: IV, Memor ia Chloride 4-09 Total l 0.9% IV 12:30: Volume: [place] (ANES) 1000 00 1,000, mL Start date: 08/29/20 7:30:00 CDT, Stop date: 08/29/20 8:30:00 CDT Sodium 2021-0 No Route: IV, Memor ia Chloride 4-09 Total l 0.9% IV 12:30: Volume: [place] (ANES) 1000 00 1,000, mL Start date: 08/29/20 7:30:00 CDT, Stop date: 08/29/20 8:30:00 CDT Sodium 2021-0 No Route: IV, Memor ia Chloride 4-09 Total l 0.9% IV 12:30: Volume: [place] (ANES) 1000 00 1,000, mL Start date: 08/29/20 7:30:00 CDT, Stop date: 08/29/20 8:30:00 CDT Sodium 2021-0 No Route: IV, Memor ia Chloride 4-09 Total l 0.9% IV 12:30: Volume: [place] (ANES) 1000 00 1,000, mL Start [...] PO, l Hydrochlori 11:42: Q24H, # 30 [place] de 150 MG 00 tab, 0 Extended Refill(s) Release Tablet 24 HR Yes 150 mg = 1 Memori a Bupropion 4-09 tab, PO, l Hydrochlori 11:42: Q24H, # 30 [place] de 150 MG 00 tab, 0 Extended Refill(s) Release Tablet 24 HR Yes 150 mg = 1 Memori a Bupropion 4-09 tab, PO, l Hydrochlori 11:42: Q24H, # 30 [place] de 150 MG 00 tab, 0 Extended Refill(s) Release Tablet 24 HR 2020-0 Yes 150 mg = 1 Memori a Bupropion 4-09 tab, PO, l Hydrochlori 11:42: Q24H, # 30 [place] de 150 MG 00 tab, 0 [...] 4 Q12H, tab, l Tablet 11:41: 0 [place] [Eliquis] 00 Refill(s), For Atrial Fibrilatio n apixaban 2020-0 Yes 5 mg, PO, Me moria MG Oral 4 Q12H, tab, l Tablet 11:41: 0 [place] [Eliquis] 00 Refill(s), For Atrial Fibrilatio n apixaban 5 2020-0 Yes 5 mg, PO, Me moria MG Oral 4- Q12H, tab, l Tablet 11:41: 0 [place] [Eliquis] 00 Refill(s), For Atrial Fibrilatio n apixaban 2020-0 Yes 5 mg, PO, Me moria MG Oral 4- Q12H, tab, l Tablet 11:41: 0 [place] [Eliquis] 00 Refill(s), For Atrial Fibrilatio n apixaban 5 2020-0 Yes 5 mg, PO, Me moria MG Oral 4- Q12H, tab, l Tablet 11:41: 0 [place] [Eliquis] 00 Refill(s), For Atrial Fibrilatio n apixaban 5 2020-0 Yes 5 mg, PO, Me moria MG Oral 4- Q12H, tab, l Tablet 11:41: 0 [place] [Eliquis] 00 Refill(s), For Atrial Fibrilatio [...] # Matry 00 90 tab, 3 Refill(s) AMIODarone Yes 200 mg = 1 M emoria 200 mg oral 4-09 tab, PO, l tablet 11:38: Daily, # [place] 00 90 tab, 3 Refill(s) AMIODarone 0 Yes 200 mg = 1 M emoria 200 mg oral 4-09 tab, PO, l tablet 11:38: Daily, # [place] 00 90 tab, 3 Refill(s) AMIODarone Yes 200 mg = 1 M emoria 200 mg oral 4-09 tab, PO, l tablet 11:38: Daily, # [place] 00 90 tab, 3 Refill(s) normal No [...] 5:29:00 CDT, 2.13, m2, 0 pantoprazol 0 202- No Metho di e 08-29 st [...] (two) Medical tablet times Branch daily. amLODIPine 2019-1 Yes 10mg Take 10 mg U nivers (NORVASC) 0-12 by mouth ity of 10 mg 08:06: daily. [place] tablet 41 [facility] Branch albuterol 2020-0 Yes Univers 90 4-14 [...] [facility] e Immunization Name Name SARS-COV-2 COVID-19 [...] 12 YRS+, Branch BIVALENT 0.3ML, IM, (PFIZER PNACHAL TOP) Influenza Virus 2022-03-05 Completed [facility] Vaccine,quad 00:00:00 [place] [facility] 65+ PFIZER COVID-19 2020-07-23 Completed [facility] VACCINATION 00:00:00 [facility] PFIZER COVID-19 2020-07-23 Completed [facility] MRNA VACCINATION 00:00:00 [facility] PFIZER COVID-19 2020-07-23 Completed [facility] MRNA VACCINATION 00:00:00 [facility] PFIZER COVID-19 2020-07-23 Completed [facility] MRNA VACCINATION 00:00:00 [facility] PFIZER COVID-19 2020-07-23 Completed [facility] MRNA VACCINATION 00:00:00 [facility] PFIZER COVID-19 2020-07-23 Completed [facility] MRNA VACCINATION 00:00:00 [facility] PFIZER COVID-19 2020-07-23 Completed [facility] MRNA VACCINATION 00:00:00 [facility] PFIZER COVID-19 2020-07-23 Completed [facility] MRNA VACCINATION 00:00:00 [facility] PFIZER COVID-19 2020-07-23 Completed [facility] MRNA VACCINATION 00:00:00 [facility] PEG COVID-19 2020-07-23 Completed [facility] MRNA VACCINATION 00:00:00 [facility] PFIZER COVID-19 2020-07-23 Completed [facility] MRNA VACCINATION 00:00:00 [facility] PEG COVID-19 2020-07-23 Completed [facility] MRNA VACCINATION 00:00:00 [facility] PEG COVID-19 2020-07-23 Completed [facility] MRNA VACCINATION 00:00:00 [facility] PEG COVID-19 2020-07-23 Completed [facility] MRNA VACCINATION 00:00:00 [facility] PEG COVID-19 2020-07-23 Completed [facility] MRNA VACCINATION 00:00:00 [facility] PEG COVID-19 2020-07-23 Completed [facility] MRNA VACCINATION 00:00:00 [facility] PEG COVID-19 2020-07-23 Completed [facility] MRNA VACCINATION 00:00:00 [facility] PEG COVID-19 2020-07-23 Completed [facility] MRNA VACCINATION 00:00:00 [facility] PEG COVID-19 2020-07-23 Completed [facility] MRNA VACCINATION 00:00:00 [facility] PEG COVID-19 2020-07-23 Completed [facility] MRNA VACCINATION 00:00:00 [facility] PEG COVID-19 2020-07-23 Completed [facility] MRNA VACCINATION 00:00:00 [facility] PFIZER COVID-19 2020-07-23 Completed [facility] MRNA VACCINATION 00:00:00 [facility] PEG COVID-19 2020-07-23 Completed [facility] MRNA VACCINATION 00:00:00 [facility] PFIZER COVID-19 2020-07-23 Completed [facility] MRNA VACCINATION 00:00:00 [facility] PFIZER COVID-19 2020-07-23 Completed [facility] MRNA VACCINATION 00:00:00 [facility] PFIZER COVID-19 2020-07-23 Completed [facility] MRNA VACCINATION 00:00:00 [facility] PFIZER COVID-19 2020-07-23 Completed [facility] MRNA VACCINATION 00:00:00 [facility] PFIZER COVID-19 2020-07-23 Completed [facility] VACCINATION 00:00:00 Hospital PFIZER COVID-19 2020-07-23 Completed [facility] MRNA VACCINATION 00:00:00 [facility] PEG COVID-19 2020-07-23 Completed [facility] MRNA VACCINATION 00:00:00 [facility] PFIZER COVID-19 2020-07-23 Completed [facility] MRNA VACCINATION 00:00:00 [facility] PEG COVID-19 2020-07-23 Completed [facility] MRNA VACCINATION 00:00:00 [facility] PEG COVID-19 2020-07-23 Completed [facility] MRNA VACCINATION 00:00:00 [facility] PEG COVID-19 2020-07-23 Completed [facility] MRNA VACCINATION 00:00:00 [facility] PEG COVID-19 2020-07-23 Completed [facility] MRNA VACCINATION 00:00:00 [facility] PEG COVID-19 2020-07-23 Completed [facility] MRNA VACCINATION 00:00:00 [facility] PEG COVID-19 2020-07-23 Completed [facility] MRNA VACCINATION 00:00:00 [facility] PEG COVID-19 2020-07-23 Completed [facility] MRNA VACCINATION 00:00:00 [facility] PEG COVID-19 2020-07-23 Completed [facility] MRNA VACCINATION 00:00:00 [facility] PEG COVID-19 2020-07-23 Completed [facility] MRNA VACCINATION 00:00:00 [facility] PEG COVID-19 2020-07-23 Completed [facility] MRNA VACCINATION 00:00:00 [facility] PEG COVID-19 2020-07-23 Completed [facility] MRNA VACCINATION 00:00:00 [facility] PEG COVID-19 2020-07-23 Completed [facility] MRNA VACCINATION 00:00:00 [facility] PEG COVID-19 2020-07-23 Completed [facility] MRNA VACCINATION 00:00:00 [facility] PEG COVID-19 2020-07-23 Completed [facility] MRNA VACCINATION 00:00:00 [facility] PEG COVID-19 2020-07-23 Completed [facility] MRNA VACCINATION 00:00:00 [facility] PFIZER COVID-19 2020-07-23 Completed [facility] MRNA VACCINATION 00:00:00 [facility] PFIZER COVID-19 2020-07-23 Completed [facility] MRNA VACCINATION 00:00:00 [facility] PFIZER COVID-19 2020-07-23 Completed [facility] MRNA VACCINATION 00:00:00 [facility] PEG COVID-19 2020-07-23 Completed [facility] MRNA VACCINATION 00:00:00 [facility] PFIZER COVID-19 2020-07-23 Completed [facility] MRNA VACCINATION 00:00:00 [facility] PFIZER COVID-19 2020-07-23 Completed [facility] VACCINATION 00:00:00 [facility] PFIZER COVID-19 2020-07-23 Completed [facility] MRNA VACCINATION 00:00:00 [facility] PFIZER COVID-19 2020-07-23 Completed [facility] MRNA VACCINATION 00:00:00 [facility] PFIZER COVID-19 2020-07-23 Completed [facility] MRNA VACCINATION 00:00:00 Hospital PFIZER COVID-19 2020-07-23 Completed [facility] MRNA VACCINATION 00:00:00 [facility] PFIZER COVID-19 2020-07-23 Completed [facility] MRNA VACCINATION 00:00:00 [facility] SARS-COV-2 COVID-19 2020-07-23 Completed Unive rsity of PFIZER VACCINE 00:00:00 [facility] SARS-COV-2 COVID-19 2020-07-23 Completed Unive rsity of PFIZER VACCINE 00:00:00 [facility] SARS-COV-2 COVID-19 2020-07-23 Completed Unive rsity of PFIZER VACCINE 00:00:00 [facility] SARS-COV-2 COVID-19 2020-07-23 Completed Unive rsity of PFIZER VACCINE 00:00:00 [facility] SARS-COV-2 COVID-19 2020-07-23 Completed Unive rsity of PFIZER VACCINE 00:00:00 [facility] SARS-COV-2 COVID-19 2020-07-23 Completed Unive rsity of PFIZER VACCINE 00:00:00 [facility] SARS-COV-2 COVID-19 2020-07-23 Completed Unive rsity of PFIZER VACCINE 00:00:00 [facility] SARS-COV-2 COVID-19 2020-07-23 Completed Unive rsity of PFIZER VACCINE 00:00:00 [facility] SARS-COV-2 COVID-19 2020-07-23 Completed Unive rsity of PFIZER VACCINE 00:00:00 [facility] SARS-COV-2 COVID-19 2020-07-23 Completed Unive rsity of PFIZER VACCINE 00:00:00 [facility] SARS-COV-2 COVID-19 2020-07-23 Completed Unive rsity of PFIZER VACCINE 00:00:00 [facility] SARS-COV-2 COVID-19 2020-07-23 Completed Unive rsity of PFIZER VACCINE 00:00:00 [facility] SARS-COV-2 COVID-19 2020-07-23 Completed Unive rsity of PFIZER VACCINE 00:00:00 [facility] SARS-COV-2 COVID-19 2020-07-23 Completed Unive rsity of PFIZER VACCINE 00:00:00 [facility] SARS-COV-2 COVID-19 2020-07-23 Completed Unive rsity of PFIZER VACCINE 00:00:00 [facility] SARS-COV-2 COVID-19 2020-07-23 Completed Unive rsity of PFIZER VACCINE 00:00:00 [facility] SARS-COV-2 COVID-19 2020-07-23 Completed Unive rsity of PFIZER VACCINE 00:00:00 [facility] SARS-COV-2 COVID-19 2020-07-23 Completed Unive rsity of PFIZER VACCINE 00:00:00 [facility] PFIZER COVID-19 2020-07-23 Completed [facility] MRNA VACCINATION 00:00:00 [facility] PFIZER COVID-19 2020-07-02 Completed [facility] MRNA VACCINATION 00:00:00 [facility] PFIZER COVID-19 2020-07-02 Completed [facility] MRNA VACCINATION 00:00:00 [facility] PFIZER COVID-19 2020-07-02 Completed [facility] MRNA VACCINATION 00:00:00 [facility] PFIZER COVID-19 2020-07-02 Completed [facility] MRNA VACCINATION 00:00:00 [facility] PFIZER COVID-19 2020-07-02 Completed [facility] MRNA VACCINATION 00:00:00 [facility] PFIZER COVID-19 2020-07-02 Completed [facility] MRNA VACCINATION 00:00:00 [facility] PFIZER COVID-19 2020-07-02 Completed [facility] MRNA VACCINATION 00:00:00 [facility] PFIZER COVID-19 2020-07-02 Completed [facility] VACCINATION 00:00:00 [facility] PFIZER COVID-19 2020-07-02 Completed [facility] MRNA VACCINATION 00:00:00 [facility] PFIZER COVID-19 2020-07-02 Completed [facility] MRNA VACCINATION 00:00:00 [facility] PFIZER COVID-19 2020-07-02 Completed [facility] MRNA VACCINATION 00:00:00 [facility] PFIZER COVID-19 2020-07-02 Completed [facility] MRNA VACCINATION 00:00:00 [facility] PFIZER COVID-19 2020-07-02 Completed [facility] MRNA VACCINATION 00:00:00 [facility] PFIZER COVID-19 2020-07-02 Completed [facility] MRNA VACCINATION 00:00:00 [facility] PFIZER COVID-19 2020-07-02 Completed [facility] MRNA VACCINATION 00:00:00 [facility] PEG COVID-19 2020-07-02 Completed [facility] MRNA VACCINATION 00:00:00 [facility] PFIZER COVID-19 2020-07-02 Completed [facility] MRNA VACCINATION 00:00:00 [facility] PFIZER COVID-19 2020-07-02 Completed [facility] MRNA VACCINATION 00:00:00 [facility] PFIZER COVID-19 2020-07-02 Completed [facility] MRNA VACCINATION 00:00:00 [facility] PFIZER COVID-19 2020-07-02 Completed [facility] MRNA VACCINATION 00:00:00 [facility] PEG COVID-19 2020-07-02 Completed [facility] MRNA VACCINATION 00:00:00 [facility] PEG FELIZID-19 2020-07-02 Completed [facility] MRNA VACCINATION 00:00:00 [facility] PFIZER COVID-19 2020-07-02 Completed [facility] MRNA VACCINATION 00:00:00 [facility] PFIZER COVID-19 2020-07-02 Completed [facility] MRNA VACCINATION 00:00:00 [facility] PEG COVID-19 2020-07-02 Completed [facility] MRNA VACCINATION 00:00:00 [facility] PFIZER COVID-19 2020-07-02 Completed [facility] MRNA VACCINATION 00:00:00 [facility] PEG COVID-19 2020-07-02 Completed [facility] MRNA VACCINATION 00:00:00 [facility] PFIZER COVID-19 2020-07-02 Completed [facility] MRNA VACCINATION 00:00:00 [facility] PFIZER COVID-19 2020-07-02 Completed [facility] MRNA VACCINATION 00:00:00 [facility] PFIZER COVID-19 2020-07-02 Completed [facility] MRNA VACCINATION 00:00:00 [facility] PFIZER COVID-19 2020-07-02 Completed [facility] MRNA VACCINATION 00:00:00 [facility] PFIZER COVID-19 2020-07-02 Completed [facility] MRNA VACCINATION 00:00:00 [facility] PFIZER COVID-19 2020-07-02 Completed [facility] MRNA VACCINATION 00:00:00 [facility] PFIZER COVID-19 2020-07-02 Completed [facility] MRNA VACCINATION 00:00:00 [facility] PFIZER COVID-19 2020-07-02 Completed [facility] MRNA VACCINATION 00:00:00 [facility] PFIZER COVID-19 2020-07-02 Completed [facility] MRNA VACCINATION 00:00:00 [facility] PFIZER COVID-19 2020-07-02 Completed [facility] MRNA VACCINATION 00:00:00 [facility] PFIZER COVID-19 2020-07-02 Completed [facility] MRNA VACCINATION 00:00:00 [facility] PFIZER COVID-19 2020-07-02 Completed [facility] MRNA VACCINATION 00:00:00 [facility] PFIZER COVID-19 2020-07-02 Completed [facility] MRNA VACCINATION 00:00:00 [facility] PFIZER COVID-19 2020-07-02 Completed [facility] MRNA VACCINATION 00:00:00 [facility] PFIZER COVID-19 2020-07-02 Completed [facility] MRNA VACCINATION 00:00:00 [facility] PFIZER COVID-19 2020-07-02 Completed [facility] MRNA VACCINATION 00:00:00 [facility] PFIZER COVID-19 2020-07-02 Completed [facility] MRNA VACCINATION 00:00:00 [facility] PFIZER COVID-19 2020-07-02 Completed [facility] MRNA VACCINATION 00:00:00 [facility] PFIZER COVID-19 2020-07-02 Completed [facility] MRNA VACCINATION 00:00:00 [facility] PFIZER COVID-19 2020-07-02 Completed [facility] MRNA VACCINATION 00:00:00 [facility] PFIZER COVID-19 2020-07-02 Completed [facility] MRNA VACCINATION 00:00:00 [facility] PFIZER COVID-19 2020-07-02 Completed [facility] MRNA VACCINATION 00:00:00 [facility] PFIZER COVID-19 2020-07-02 Completed [facility] MRNA VACCINATION 00:00:00 [facility] PFIZER COVID-19 2020-07-02 Completed [facility] MRNA VACCINATION 00:00:00 [facility] PFIZER COVID-19 2020-07-02 Completed [facility] MRNA VACCINATION 00:00:00 [facility] PFIZER COVID-19 2020-07-02 Completed [facility] MRNA VACCINATION 00:00:00 [facility] PFIZER COVID-19 2020-07-02 Completed [facility] MRNA VACCINATION 00:00:00 [facility] PFIZER COVID-19 2020-07-02 Completed [facility] MRNA VACCINATION 00:00:00 [facility] PFIZER COVID-19 2020-07-02 Completed [facility] MRNA VACCINATION 00:00:00 [facility] PFIZER COVID-19 2020-07-02 Completed [facility] MRNA VACCINATION 00:00:00 [facility] SARS-COV-2 COVID-19 2020-07-02 Completed Unive rsity of PFIZER VACCINE 00:00:00 [facility] SARS-COV-2 COVID-19 2020-07-02 Completed Unive rsity of PFIZER VACCINE 00:00:00 [facility] SARS-COV-2 COVID-19 2020-07-02 Completed Unive rsity of PFIZER VACCINE 00:00:00 [facility] SARS-COV-2 COVID-19 2020-07-02 Completed Unive rsity of PFIZER VACCINE 00:00:00 [facility] SARS-COV-2 COVID-19 2020-07-02 Completed [facility]ive rsity of PFIZER VACCINE 00:00:00 [facility] SARS-COV-2 COVID-19 2020-07-02 Completed [facility]ive rsity of PFIZER VACCINE 00:00:00 [facility] SARS-COV-2 COVID-19 2020-07-02 Completed Unive rsity of PFIZER VACCINE 00:00:00 [facility] SARS-COV-2 COVID-19 2020-07-02 Completed Unive rsity of PFIZER VACCINE 00:00:00 [facility] SARS-COV-2 COVID-19 2020-07-02 Completed Unive rsity of PFIZER VACCINE 00:00:00 [facility] SARS-COV-2 COVID-19 2020-07-02 Completed Unive rsity of PFIZER VACCINE 00:00:00 [facility] SARS-COV-2 COVID-19 2020-07-02 Completed [facility]ive rsity of PFIZER VACCINE 00:00:00 [facility] SARS-COV-2 COVID-19 2020-07-02 Completed Unive rsity of PFIZER VACCINE 00:00:00 [facility] SARS-COV-2 COVID-19 2020-07-02 Completed Unive rsity of PFIZER VACCINE 00:00:00 [facility] SARS-COV-2 COVID-19 2020-07-02 Completed Unive rsity of PFIZER VACCINE 00:00:00 [facility] SARS-COV-2 COVID-19 2020-07-02 Completed [facility]ive rsity of PFIZER VACCINE 00:00:00 [facility] SARS-COV-2 COVID-19 2020-07-02 Completed Unive rsity of PFIZER VACCINE 00:00:00 [facility] SARS-COV-2 COVID-19 2020-07-02 Completed Unive rsity of PFIZER VACCINE 00:00:00 [facility] SARS-COV-2 COVID-19 2020-07-02 Completed Unive rsity of PFIZER VACCINE 00:00:00 [facility] PFIZER COVID-19 2020-07-02 Completed [facility] MRNA VACCINATION 00:00:00 Hospital Influenza Virus 2017-03-08 Completed [facility] Vaccine 00:00:00 [facility] Influenza Virus 2017-03-08 Completed [facility] of Vaccine 00:00:00 [facility] Influenza Virus 2017-03-08 Completed [facility] of Vaccine 00:00:00 [facility] Influenza Virus 2017-03-08 Completed [facility] of Vaccine 00:00:00 [facility] Influenza Virus 2017-03-08 Completed [facility] of Vaccine 00:00:00 [facility] Influenza Virus 2017-03-08 Completed [facility] of Vaccine 00:00:00 [facility] Influenza Virus 2017-03-08 Completed [facility] of Vaccine 00:00:00 [facility] Influenza Virus 2017-03-08 Completed [facility] of Vaccine 00:00:00 [facility] Influenza Virus 2017-03-08 Completed [facility] of Vaccine 00:00:00 [facility] Influenza Virus 2017-03-08 Completed [facility] of Vaccine 00:00:00 [facility] Influenza Virus 2017-03-08 Completed [facility] of Vaccine 00:00:00 [facility] Influenza Virus 2017-03-08 Completed [facility] of Vaccine 00:00:00 [facility] Influenza Virus 2017-03-08 Completed [facility] of Vaccine 00:00:00 [facility] Influenza Virus 2017-03-08 Completed [facility] of Vaccine 00:00:00 [facility] Influenza Virus 2017-03-08 Completed [facility] of Vaccine 00:00:00 [facility] Influenza Virus 2017-03-08 Completed [facility] of Vaccine 00:00:00 [facility] Influenza Virus 2017-03-08 Completed [facility] of Vaccine 00:00:00 [facility] Influenza Virus 2017-03-08 Completed [facility] of Vaccine 00:00:00 [facility] Influenza Virus 2017-03-08 Completed [facility] of Vaccine 00:00:00 [facility] Influenza Virus 2017-03-08 Completed [facility] of Vaccine 00:00:00 [facility] Influenza Virus 2017-03-08 Completed [facility] of Vaccine 00:00:00 [facility] Influenza Virus 2017-03-08 Completed [facility] of Vaccine 00:00:00 [facility] Influenza Virus 2014-01-30 Completed [facility] Vaccine (3+ yrs) 00:00:00 [facility] Pneumococcal 13 2014-01-30 Completed [facility] of Conjugate, PCV13 00:00:00 [facility] dical (Prevnar 13) Branch Influenza Virus 2014-01-30 Completed [facility] of Vaccine (3+ yrs) 00:00:00 [facility] Pneumococcal 13 2014-01-30 Completed [facility] of Conjugate, PCV13 00:00:00 [facility] dical (Prevnar 13) Branch Influenza Virus 2014-01-30 Completed [facility] of Vaccine (3+ yrs) 00:00:00 [facility] Pneumococcal 13 2014-01-30 Completed [facility]it y of Conjugate, PCV13 00:00:00 [facility] dical (Prevnar 13) Branch Influenza Virus 2014-01-30 Completed [facility] of Vaccine (3+ yrs) 00:00:00 [facility] Pneumococcal 13 2014-01-30 Completed [facility]it y of Conjugate, PCV13 00:00:00 [facility] dical (Prevnar 13) Branch Influenza Virus 2014-01-30 Completed [facility] of Vaccine (3+ yrs) 00:00:00 [facility] Pneumococcal 13 2014-01-30 Completed [facility] y of Conjugate, PCV13 00:00:00 [facility] dical (Prevnar 13) Branch Influenza Virus 2014-01-30 Completed [facility] of Vaccine (3+ yrs) 00:00:00 [facility] Pneumococcal 13 2014-01-30 Completed [facility] of Conjugate, PCV13 00:00:00 [facility] dical (Prevnar 13) Branch Influenza Virus 2014-01-30 Completed [facility] Vaccine (3+ yrs) 00:00:00 [facility] Pneumococcal 13 2014-01-30 Completed [facility] of Conjugate, PCV13 00:00:00 [facility] dical (Prevnar 13) Branch Influenza Virus 2014-01-30 Completed [facility] Vacc[facility] (3+ yrs) 00:00[facility] Pneum[facility] 13 2014-01-30 Completed [facility] [...] [facility] Vaccine (3+ yrs) 00:00:00 [facility] Branch Pneumococcal 13 2014-01-30 Completed [facility]it [facility] of Conjugate, PCV13 00:00:00 [place] [facility] (Prevnar 13) [facility] Influenza Virus 2014-01-30 Completed [facility] Vaccine (3+ yrs) 00:00:00 [place] [facility] Pneumococcal 13 2014-01-30 Completed [facility] of Conjugate, PCV13 00:00:00 [place] [facility] (Prevnar 13) [facility] Influenza Virus 2014-01-30 Completed [facility] Vaccine (3+ yrs) 00:00:00 [facility] Branch Pneumococcal 13 2014-01-30 Completed [facility] of Conjugate, PCV13 00:00:00 [place] [facility] (Prevnar 13) [facility] Influenza Virus 2014-01-30 Completed [facility] Vaccine (3+ yrs) 00:00:00 [facility] Branch Pneumococcal 13 2014-01-30 Completed [facility] of Conjugate, PCV13 00:00:00 [place] [facility] (Prevnar 13) [facility] Influenza Virus 2014-01-30 Completed [facility] of Vaccine (3+ yrs) 00:00:00 [facility] Branch Pneumococcal 13 2014-01-30 Completed [facility]it [facility] of Conjugate, PCV13 00:00:00 [facility] dical (Prevnar 13) Branch Influenza Virus 2014-01-30 Completed [facility] of Vaccine (3+ yrs) 00:00:00 [facility] Branch Pneumococcal 13 2014-01-30 Completed [facility]it y of Conjugate, PCV13 00:00:00 [facility] dical (Prevnar 13) Branch Influenza Virus 2014-01-30 Completed [facility] of Vaccine (3+ yrs) 00:00:00 [facility] Branch Pneumococcal 13 2014-01-30 Completed [facility]it [facility] of Conjugate, PCV13 00:00:00 [facility] dical (Prevnar 13) Branch Influenza Virus 2014-01-30 Completed [facility] of Vaccine (3+ yrs) 00:00:00 [facility] Branch Pneumococcal 13 2014-01-30 Completed [facility]it [facility] of Conjugate, PCV13 00:00:00 [facility] dical (Prevnar 13) Branch Influenza Virus 2014-01-30 Completed [facility] of Vaccine (3+ yrs) 00:00:00 [facility] Branch Pneumococcal 13 2014-01-30 Completed [facility]it y of Conjugate, PCV13 00:00:00 [facility] dical (Prevnar 13) Branch Pneumococcal 2012-02-16 Completed University o f Polysaccharide, 00:00:00 [facility] ical PPSV23 (PNEUMOVAX) Branch Influenza Virus 2012-02-16 Completed [facility]it [facility] of Vaccine 00:00:00 [facility] PPD (TB) 2012-02-16 Completed [facility] of 00:00:00 [facility] Pneumococcal 2012-02-16 Completed [facility] o f Polysaccharide, 00:00:00 [facility] ical PPSV23 (PNEUMOVAX) Branch Influenza Virus 2012-02-16 Completed [facility] of Vaccine 00:00:00 [facility] PPD (TB) 2012-02-16 Completed [facility] of 00:00:00 [facility] Pneumococcal 2012-02-16 Completed [facility] o f Polysaccharide, 00:00:00 [place] [facility] PPSV23 (PNEUMOVAX) Branch Influenza Virus 2012-02-16 Completed [facility] of Vaccine 00:00:00 [facility] PPD (TB) 2012-02-16 Completed [facility] of 00:00:00 [facility] Pneumococcal 2012-02-16 Completed [facility] o f Polysaccharide, 00:00:00 [place] [facility] PPSV23 (PNEUMOVAX) Branch Influenza Virus 2012-02-16 Completed [facility] of Vaccine 00:00:00 [facility] PPD (TB) 2012-02-16 Completed [facility] of 00:00:00 [facility] Pneumococcal 2012-02-16 Completed [facility] o f Polysaccharide, 00:00:00 [place] [facility] PPSV23 (PNEUMOVAX) Branch Influenza Virus 2012-02-16 Completed [facility] of Vaccine 00:00:00 [facility] PPD (TB) 2012-02-16 Completed [facility] of 00:00:00 [facility] Pneumococcal 2012-02-16 Completed [facility] o f Polysaccharide, 00:00:00 [place] [facility] PPSV23 (PNEUMOVAX) Branch Influenza Virus 2012-02-16 Completed [facility] of Vaccine 00:00:00 [facility] PPD (TB) 2012-02-16 Completed [facility] of 00:00:00 [facility] Pneumococcal 2012-02-16 Completed [facility] o f Polysaccharide, 00:00:00 [place] [facility] PPSV23 (PNEUMOVAX) Branch Influenza Virus 2012-02-16 Completed [facility] of Vaccine 00:00:00 [facility] PPD (TB) 2012-02-16 Completed [facility] of 00:00:00 [facility] Pneumococcal 2012-02-16 Completed [facility] o f Polysaccharide, 00:00:00 [place] [facility] PPSV23 (PNEUMOVAX) Branch Influenza Virus 2012-02-16 Completed [facility] of Vaccine 00:00:00 [facility] PPD (TB) 2012-02-16 Completed [facility] of 00:00:00 [facility] Pneumococcal 2012-02-16 Completed [facility] o f Polysaccharide, 00:00:00 [place] [facility] PPSV23 (PNEUMOVAX) Branch Influenza Virus 2012-02-16 Completed [facility] of Vaccine 00:00:00 [facility] PPD (TB) 2012-02-16 Completed [facility] of 00:00:00 [facility] Pneumococcal 2012-02-16 Completed [facility] o f Polysaccharide, 00:00:00 [place] [facility] PPSV23 (PNEUMOVAX) Branch Influenza Virus 2012-02-16 Completed [facility] of Vaccine 00:00:00 [facility] PPD (TB) 2012-02-16 Completed [facility] of 00:00:00 [facility] Pneumococcal 2012-02-16 Completed [facility] o f Polysaccharide, 00:00:00 [place] [facility] PPSV23 (PNEUMOVAX) Branch Influenza Virus 2012-02-16 Completed [facility] of Vaccine 00:00:00 [facility] PPD (TB) 2012-02-16 Completed [facility] of 00:00:00 [facility] Pneumococcal 2012-02-16 Completed [facility] o f Polysaccharide, 00:00:00 [place] [facility] PPSV23 (PNEUMOVAX) Branch Influenza Virus 2012-02-16 Completed [facility] of Vaccine 00:00:00 [facility] PPD (TB) 2012-02-16 Completed [facility] of 00:00:00 [facility] Pneumococcal 2012-02-16 Completed [facility] o f Polysaccharide, 00:00:00 [place] [facility] PPSV23 (PNEUMOVAX) Branch Influenza Virus 2012-02-16 Completed [facility] of Vaccine 00:00:00 [facility] PPD (TB) 2012-02-16 Completed [facility] of 00:00:00 [facility] Pneumococcal 2012-02-16 Completed [facility] o f Polysaccharide, 00:00:00 [place] [facility] PPSV23 (PNEUMOVAX) Branch Influenza Virus 2012-02-16 Completed [facility] of Vaccine 00:00:00 [facility] PPD (TB) 2012-02-16 Completed [facility] of 00:00:00 [facility] Pneumococcal 2012-02-16 Completed [facility] o f Polysaccharide, 00:00:00 [place] [facility] PPSV23 (PNEUMOVAX) Branch Influenza Virus 2012-02-16 Completed [facility] of Vaccine 00:00:00 [facility] PPD (TB) 2012-02-16 Completed [facility] of 00:00:00 [facility] Pneumococcal 2012-02-16 Completed [facility] o f Polysaccharide, 00:00:00 [place] [facility] PPSV23 (PNEUMOVAX) Branch Influenza Virus 2012-02-16 Completed [facility] of Vaccine 00:00:00 [facility] PPD (TB) 2012-02-16 Completed [facility] of 00:00:00 [facility] Pneumococcal 2012-02-16 Completed [facility] o f Polysaccharide, 00:00:00 [place] [facility] PPSV23 (PNEUMOVAX) Branch Influenza Virus 2012-02-16 Completed [facility] of Vaccine 00:00:00 [facility] PPD (TB) 2012-02-16 Completed [facility] of 00:00:00 [facility] Pneumococcal 2012-02-16 Completed [facility] o f Polysaccharide, 00:00:00 [place] [facility] PPSV23 (PNEUMOVAX) Branch Influenza Virus 2012-02-16 Completed [facility] of Vaccine 00:00:00 [facility] PPD (TB) 2012-02-16 Completed [facility] of 00:00:00 [facility] Pneumococcal 2012-02-16 Completed [facility] o f Polysaccharide, 00:00:00 [place] [facility] PPSV23 (PNEUMOVAX) Branch Influenza Virus 2012-02-16 Completed [facility] of Vaccine 00:00:00 [facility] PPD (TB) 2012-02-16 Completed [facility] of 00:00:00 [facility] Pneumococcal 2012-02-16 Completed [facility] o f Polysaccharide, 00:00:00 [place] [facility] PPSV23 (PNEUMOVAX) Branch Influenza Virus 2012-02-16 Completed [facility] of Vaccine 00:00:00 [facility] PPD (TB) 2012-02-16 Completed [facility] of 00:00:00 [facility] Pneumococcal 2012-02-16 Completed [facility] o f Polysaccharide, 00:00:00 [place] [facility] PPSV23 (PNEUMOVAX) Branch Influenza Virus 2012-02-16 Completed [facility] of Vaccine 00:00:00 [facility] PPD (TB) 2012-02-16 Completed [facility] of 00:00:00 [facility] Pneumococcal 2012-02-16 Completed [facility] o f Polysaccharide, 00:00:00 [facility] ical PPSV23 (PNEUMOVAX) Branch Influenza Virus 2012-02-16 Completed [facility] of Vaccine 00:00:00 [facility] PPD (TB) 2012-02-16 Completed University of 00:00:00 [facility] Hep B, Adol or Pedi 2011-09-01 Completed Unive rsity of Dosage 00:00:00 [facility] Hep B, Adol or Pedi 2011-09-01 Completed Unive rsity of Dosage 00:00:00 [facility] Hep B, Adol or Pedi 2011-09-01 Completed Unive rsity of Dosage 00:00:00 [facility] Hep B, Adol or Pedi 2011-09-01 [...] 2011-03-17 Completed Unive rsity of Dosage 00:00:00 [facility] Hep B, Adol or Pedi 2011-03-17 Completed Unive rsity of Dosage 00:00:00 [facility] Hep B, Adol or Pedi 2011-03-17 Completed Unive rsity of Dosage 00:00:00 [facility] Hep B, Adol or Pedi 2011-03-17 Completed Unive rsity of Dosage 00:00:00 [facility] Hep B, Adol or Pedi 2011-03-17 Completed Unive rsity of Dosage 00:00:00 [facility] Influenza Virus 2011-02-10 Completed [facility] of Vaccine 00:00:00 [facility] Hep B, Adol or Pedi 2011-02-10 Completed Unive rsity of Dosage 00:00:00 [facility] Influenza Virus 2011-02-10 Completed [facility] of Vaccine 00:00:00 [facility] Hep B, Adol or Pedi 2011-02-10 Completed Unive rsity of Dosage 00:00:00 [facility] Influenza Virus 2011-02-10 Completed [facility] of Vaccine 00:00:00 [facility] Hep B, Adol or Pedi 2011-02-10 Completed Unive rsity of Dosage 00:00:00 [facility] Influenza Virus 2011-02-10 Completed [facility] of Vaccine 00:00:00 [facility] Hep B, Adol or Pedi 2011-02-10 Completed Unive rsity of Dosage 00:00:00 [facility] Influenza Virus 2011-02-10 Completed [facility] of Vaccine 00:00:00 [facility] Hep B, Adol or Pedi 2011-02-10 Completed Unive rsity of Dosage 00:00:00 [facility] Influenza Virus 2011-02-10 Completed [facility] of Vaccine 00:00:00 [facility] Hep B, Adol or Pedi 2011-02-10 Completed Unive rsity of Dosage 00:00:00 [facility] Influenza Virus 2011-02-10 Completed [facility] of Vaccine 00:00:00 [facility] Hep B, Adol or Pedi 2011-02-10 Completed Unive rsity of Dosage 00:00:00 [facility] Influenza Virus 2011-02-10 Completed [facility] of Vaccine 00:00:00 [facility] Hep B, Adol or Pedi 2011-02-10 Completed [facility]ive rsity of Dosage 00:00:00 [facility] Influenza Virus 2011-02-10 Completed [facility] of Vaccine 00:00:00 [facility] Hep B, Adol or Pedi 2011-02-10 Completed Unive rsity of Dosage 00:00:00 [facility] Influenza Virus 2011-02-10 Completed [facility] of Vaccine 00:00:00 [facility] Hep B, Adol or Pedi 2011-02-10 Completed [facility]ive rsity of Dosage 00:00:00 [facility] Influenza Virus 2011-02-10 Completed [facility] of Vaccine 00:00:00 [facility] Hep B, Adol or Pedi 2011-02-10 Completed [facility]ive rsity of Dosage 00:00:00 [facility] Influenza Virus 2011-02-10 Completed [facility] of Vaccine 00:00:00 [facility] Hep B, Adol or Pedi 2011-02-10 Completed [facility]ive rsity of Dosage 00:00:00 [facility] Influenza Virus 2011-02-10 Completed [facility] of Vaccine 00:00:00 [facility] Hep B, Adol or Pedi 2011-02-10 Completed Unive rsity of Dosage 00:00:00 [facility] Influenza Virus 2011-02-10 Completed [facility] of Vaccine 00:00:00 [facility] Hep B, Adol or Pedi 2011-02-10 Completed [facility]ive rsity of Dosage 00:00:00 [facility] Influenza Virus 2011-02-10 Completed [facility] Vaccine 00:00:00 [facility] Hep B, Adol or Pedi 2011-02-10 Completed [facility]ive rsity of Dosage 00:00:00 [facility] Influenza Virus 2011-02-10 Completed [facility] of Vaccine 00:00:00 [facility] Hep B, Adol or Pedi 2011-02-10 Completed [facility]ive rsity of Dosage 00:00:00 [facility] Influenza Virus 2011-02-10 Completed [facility] of Vaccine 00:00:00 [facility] Hep B, Adol or Pedi 2011-02-10 Completed [facility]ive rsity of Dosage 00:00:00 [facility] Influenza Virus 2011-02-10 Completed [facility] Vaccine 00:00:00 [facility] Hep B, Adol or Pedi 2011-02-10 Completed Unive rsity of Dosage 00:00:00 [facility] Influenza Virus 2011-02-10 Completed [facility] of Vaccine 00:00:00 [facility] Hep B, Adol or Pedi 2011-02-10 Completed [facility]ive rsity of Dosage 00:00:00 [facility] Influenza Virus 2011-02-10 Completed [facility] of Vaccine 00:00:00 [facility] Hep B, Adol or Pedi 2011-02-10 Completed [facility]ive rsity of Dosage 00:00:00 [facility] Influenza Virus 2011-02-10 Completed [facility] of Vaccine 00:00:00 [facility] Hep B, Adol or Pedi 2011-02-10 Completed [facility]ive rsity of Dosage 00:00:00 [facility] Influenza Virus 2011-02-10 Completed [facility] of Vaccine 00:00:00 [facility] Hep B, Adol or Pedi 2011-02-10 Completed [facility]ive rsity of Dosage 00:00:00 [facility] PPD (TB) 2010-11-18 Completed University of 00:00:00 [facility] TDAP (ADACEL) 2010-11-18 Completed University of VACCINE 00:00:00 [facility] PPD (TB) 2010-11-18 Completed [facility] of 00:00:00 [facility] TDAP (ADACEL) 2010-11-18 Completed University of VACCINE 00:00:00 [facility] PPD (TB) 2010-11-18 Completed [facility] of 00:00:00 [facility] TDAP (ADACEL) 2010-11-18 Completed University of VACCINE 00:00:00 [facility] PPD (TB) 2010-11-18 Completed [facility] of 00:00:00 [facility] TDAP (ADACEL) 2010-11-18 Completed University of VACCINE 00:00:00 [facility] PPD (TB) 2010-11-18 Completed [facility] of 00:00:00 [facility] TDAP (ADACEL) 2010-11-18 Completed University of VACCINE 00:00:00 [facility] PPD (TB) 2010-11-18 Completed [facility] of 00:00:00 [facility] TDAP (ADACEL) 2010-11-18 Completed [facility] of VACCINE 00:00:00 [facility] PPD (TB) 2010-11-18 Completed [facility] 00:00:00 [facility] TDAP (ADACEL) 2010-11-18 Completed University of VACCINE 00:00:00 [facility] PPD (TB) 2010-11-18 Completed [facility] of 00:00:00 [facility] TDAP (ADACEL) 2010-11-18 Completed [facility] of VACCINE 00:00:00 [facility] PPD (TB) 2010-11-18 Completed [facility] of 00:00:00 [facility] TDAP (ADACEL) 2010-11-18 Completed [facility] of VACCINE 00:00:00 [facility] PPD (TB) 2010-11-18 Completed [facility] of 00:00:00 [facility] TDAP (ADACEL) 2010-11-18 Completed [facility] of VACCINE 00:00:00 [facility] PPD (TB) 2010-11-18 Completed [facility] of 00:00:00 [facility] TDAP (ADACEL) 2010-11-18 Completed [facility] of VACCINE 00:00:00 [facility] PPD (TB) 2010-11-18 Completed [facility] of 00:00:00 [facility] TDAP (ADACEL) 2010-11-18 Completed [facility] of VACCINE 00:00:00 [facility] PPD (TB) 2010-11-18 Completed [facility] of 00:00:00 [facility] TDAP (ADACEL) 2010-11-18 Completed [facility] of VACCINE 00:00:00 [facility] PPD (TB) 2010-11-18 Completed [facility] of 00:00:00 [facility] TDAP (ADACEL) 2010-11-18 Completed [facility] of VACCINE 00:00:00 [facility] PPD (TB) 2010-11-18 Completed [facility] of 00:00:00 [facility] TDAP (ADACEL) 2010-11-18 Completed [facility] of VACCINE 00:00:00 [facility] PPD (TB) 2010-11-18 Completed [facility] of 00:00:00 [facility] TDAP (ADACEL) 2010-11-18 Completed [facility] of VACCINE 00:00:00 [facility] PPD (TB) 2010-11-18 Completed [facility] of 00:00:00 [facility] TDAP (ADACEL) 2010-11-18 Completed [facility] of VACCINE 00:00:00 [facility] PPD (TB) 2010-11-18 Completed [facility] of 00:00:00 [facility] TDAP (ADACEL) 2010-11-18 Completed [facility] of VACCINE 00:00:00 [facility] PPD (TB) 2010-11-18 Completed [facility] of 00:00:00 [facility] TDAP (ADACEL) 2010-11-18 Completed [facility] of VACCINE 00:00:00 [facility] PPD (TB) 2010-11-18 Completed [facility] of 00:00:00 [facility] TDAP (ADACEL) 2010-11-18 Completed [facility] of VACCINE 00:00:00 [facility] PPD (TB) 2010-11-18 Completed [facility] of 00:00:00 [facility] TDAP (ADACEL) 2010-11-18 Completed [facility] of VACCINE 00:00:00 [facility] PPD (TB) 2010-11-18 Completed [facility] of 00:00:00 [facility] TDAP (ADACEL) 2010-11-18 Completed [facility] of VACCINE 00:00:00 [facility] HEPATITIS A 2004-03-02 Completed [facility] of 00:00:00 [facility] HEPATITIS A 2004-03-02 Completed [facility] of 00:00:00 [facility] HEPATITIS A 2004-03-02 Completed [facility] of 00:00:00 [facility] HEPATITIS A 2004-03-02 Completed [facility] of 00:00:00 [facility] HEPATITIS A 2004-03-02 Completed [facility] of 00:00:00 [facility] HEPATITIS A 2004-03-02 Completed [facility] of 00:00:00 [facility] HEPATITIS A 2004-03-02 Completed [facility] of 00:00:00 [facility] HEPATITIS A 2004-03-02 Completed [facility] of 00:00:00 [facility] HEPATITIS A 2004-03-02 Completed [facility] of 00:00:00 [facility] HEPATITIS A 2004-03-02 Completed [facility] of 00:00:00 [facility] HEPATITIS A 2004-03-02 Completed [facility] of 00:00:00 [facility] HEPATITIS A 2004-03-02 Completed [facility] of 00:00:00 [facility] HEPATITIS A 2004-03-02 Completed [facility] of 00:00:00 [facility] HEPATITIS A 2004-03-02 Completed [facility] of 00:00:00 [facility] HEPATITIS A 2004-03-02 Completed [facility] of 00:00:00 [facility] HEPATITIS A 2004-03-02 Completed [facility] of 00:00:00 [facility] HEPATITIS A 2004-03-02 Completed [facility] of 00:00:00 [facility] HEPATITIS A 2004-03-02 Completed [facility] of 00:00:00 [facility] HEPATITIS A 2004-03-02 Completed [facility] of 00:00:00 [facility] HEPATITIS A 2004-03-02 Completed [facility] of 00:00:00 [facility] HEPATITIS A 2004-03-02 Completed [facility] of 00:00:00 [facility] HEPATITIS A 2004-03-02 Completed [facility] of 00:00:00 [facility] HEPATITIS A 2003-08-01 Completed [facility] of 00:00:00 [facility] HEPATITIS A 2003-08-01 Completed [facility] of 00:00:00 [facility] HEPATITIS A 2003-08-01 Completed [facility] of 00:00:00 [facility] HEPATITIS A 2003-08-01 Completed [facility] of 00:00:00 [facility] HEPATITIS A 2003-08-01 Completed [facility] of 00:00:00 [facility] HEPATITIS A 2003-08-01 Completed [facility] of 00:00:00 [facility] HEPATITIS A 2003-08-01 Completed [facility] of 00:00:00 [facility] HEPATITIS A 2003-08-01 Completed [facility] of 00:00:00 [facility] HEPATITIS A 2003-08-01 Completed [facility] of 00:00:00 [facility] HEPATITIS A 2003-08-01 Completed [facility] of 00:00:00 [facility] HEPATITIS A 2003-08-01 Completed [facility] of 00:00:00 [facility] HEPATITIS A 2003-08-01 Completed [facility] of 00:00:00 [facility] HEPATITIS A 2003-08-01 Completed [facility] of 00:00:00 [facility] HEPATITIS A 2003-08-01 Completed [facility] of 00:00:00 [facility] HEPATITIS A 2003-08-01 Completed [facility] of 00:00:00 [facility] HEPATITIS A 2003-08-01 Completed [facility] of 00:00:00 [facility] HEPATITIS A 2003-08-01 Completed [facility] of 00:00:00 [facility] HEPATITIS A 2003-08-01 Completed [facility] of 00:00:00 [facility] HEPATITIS A 2003-08-01 Completed [facility] of 00:00:00 [facility] HEPATITIS A 2003-08-01 Completed [facility] of 00:00:00 [facility] HEPATITIS A 2003-08-01 Completed [facility] of 00:00:00 [facility] HEPATITIS A 2003-08-01 Completed [facility] of 00:00:00 [facility] Pneumococcal 2001-10-04 Completed [facility] o f Polysaccharide, 00:00:00 [place] [facility] PPSV23 (PNEUMOVAX) Branch PPD (TB) 2001-10-04 Completed [facility] of 00:00:00 [facility] Pneumococcal 2001-10-04 Completed [facility] o f Polysaccharide, 00:00:00 [place] [facility] PPSV23 (PNEUMOVAX) Branch PPD (TB) 2001-10-04 Completed [facility] of 00:00:00 [facility] Pneumococcal 2001-10-04 Completed [facility] o f Polysaccharide, 00:00:00 [facility] PPSV23 (PNEUMOVAX) Branch PPD (TB) 2001-10-04 Completed [facility] of 00:00:00 [facility] Pneumococcal 2001-10-04 Completed [facility] o f Polysaccharide, 00:00:00 [facility] PPSV23 (PNEUMOVAX) Branch PPD (TB) 2001-10-04 Completed [facility] of 00:00:00 [facility] Pneumococcal 2001-10-04 Completed [facility] o f Polysaccharide, 00:00:00 [facility] PPSV23 (PNEUMOVAX) Branch PPD (TB) 2001-10-04 Completed [facility] of 00:00:00 [facility] Pneumococcal 2001-10-04 Completed [facility] o f Polysaccharide, 00:00:00 [facility] PPSV23 (PNEUMOVAX) Branch PPD (TB) 2001-10-04 Completed [facility] of 00:00:00 [facility] Pneumococcal 2001-10-04 Completed [facility] o f Polysaccharide, 00:00:00 [facility] PPSV23 (PNEUMOVAX) Branch PPD (TB) 2001-10-04 Completed [facility] of 00:00:00 [facility] Pneumococcal 2001-10-04 Completed [facility] o f Polysaccharide, 00:00:00 [facility] PPSV23 (PNEUMOVAX) Branch PPD (TB) 2001-10-04 Completed [facility] of 00:00:00 [facility] Pneumococcal 2001-10-04 Completed [facility] o f Polysaccharide, 00:00:00 [facility] PPSV23 (PNEUMOVAX) Branch PPD (TB) 2001-10-04 Completed [facility] of 00:00:00 [facility] Pneumococcal 2001-10-04 Completed [facility] o f Polysaccharide, 00:00:00 [facility] PPSV23 (PNEUMOVAX) Branch PPD (TB) 2001-10-04 Completed [facility] of 00:00:00 [facility] Pneumococcal 2001-10-04 Completed [facility] o f Polysaccharide, 00:00:00 [facility] PPSV23 (PNEUMOVAX) Branch PPD (TB) 2001-10-04 Completed [facility] of 00:00:00 [facility] Pneumococcal 2001-10-04 Completed [facility] o f Polysaccharide, 00:00:00 [facility] PPSV23 (PNEUMOVAX) Branch PPD (TB) 2001-10-04 Completed [facility] of 00:00:00 [facility] Pneumococcal 2001-10-04 Completed [facility] o f Polysaccharide, 00:00:00 [facility] PPSV23 (PNEUMOVAX) Branch PPD (TB) 2001-10-04 Completed [facility] of 00:00:00 [facility] Pneumococcal 2001-10-04 Completed [facility] o f Polysaccharide, 00:00:00 [facility] PPSV23 (PNEUMOVAX) Branch PPD (TB) 2001-10-04 Completed [facility] of 00:00:00 [facility] Pneumococcal 2001-10-04 Completed [facility] o f Polysaccharide, 00:00:00 [facility] PPSV23 (PNEUMOVAX) Branch PPD (TB) 2001-10-04 Completed [facility] of 00:00:00 [facility] Pneumococcal 2001-10-04 Completed [facility] o f Polysaccharide, 00:00:00 [facility] PPSV23 (PNEUMOVAX) Branch PPD (TB) 2001-10-04 Completed [facility] of 00:00:00 [facility] Pneumococcal 2001-10-04 Completed [facility] o f Polysaccharide, 00:00:00 [facility] PPSV23 (PNEUMOVAX) Branch PPD (TB) 2001-10-04 Completed [facility] of 00:00:00 [facility] Pneumococcal 2001-10-04 Completed [facility] o f Polysaccharide, 00:00:00 [facility] PPSV23 (PNEUMOVAX) Branch PPD (TB) 2001-10-04 Completed University of 00:00:00 [facility] Pneumococcal 2001-10-04 Completed University o f Polysaccharide, 00:00:00 [place] [facility] PPSV23 (PNEUMOVAX) Branch PPD (TB) 2001-10-04 Completed [facility] of 00:00:00 [facility] Pneumococcal 2001-10-04 Completed University o f Polysaccharide, 00:00:00 [place] [facility] PPSV23 (PNEUMOVAX) Branch PPD (TB) 2001-10-04 Completed University of 00:00:00 [facility] Pneumococcal 2001-10-04 Completed University o f Polysaccharide, 00:00:00 [place] [facility] PPSV23 (PNEUMOVAX) Branch PPD (TB) 2001-10-04 Completed [facility] of 00:00:00 [facility] Pneumococcal 2001-10-04 Completed University o f Polysaccharide, 00:00:00 [place] [facility] PPSV23 (PNEUMOVAX) Branch PPD (TB) 2001-10-04 Completed University 00:00:00 [facility] Vital Signs Vital Name Observation Time Observation Value Comments Source Systolic blood 2022-05-10 22:00:00 159 mm[Hg] Univer sity of pressure [facility] Diastolic blood 2022-05-10 22:00:00 87 mm[Hg] Unive rsity of pressure [facility] Heart rate 2022-05-10 22:00:00 56 /min Universi ty of [facility] Body temperature 2022-05-10 22:00:00 36.61 Amina Univ ersity of [facility] Respiratory rate 2022-05-10 22:00:00 17 /min Univ ersity of [facility] Oxygen saturation in 2022-05-10 22:00:00 98 /min University of Arterial blood by [facility] Pulse oximetry Branch Body weight 2022-05-10 16:29:00 78.926 kg [facility] BMI 2022-05-10 16:29:00 29.87 kg/m2 [facility] Systolic blood 2022-05-08 22:30:00 168 mm[Hg] Univer sity of pressure [facility] Diastolic blood 2022-05-08 22:30:00 85 mm[Hg] Unive rsity of pressure [facility] Heart rate 2022-05-08 22:30:00 68 /min [facility] Oxygen saturation in 2022-05-08 22:30:00 100 /min University of Arterial blood by [facility] Pulse oximetry Branch Body temperature 2022-05-08 22:22:00 35.89 Amina Univ ers[facility] Respiratory rate 2022-05-08 22:22:00 14 /min Univ ers[facility] Body weight 2022-05-08 22:22:00 78.926 kg [facility] BMI 2022-05-08 22:22:00 29.87 kg/m2 [facility] Systolic blood 2022-05-07 00:00:00 149 mm[Hg] Univer sity of pressure [facility] Diastolic blood 2022-05-07 00:00:00 132 mm[Hg] Unive rsity of pressure [place] [facility] Heart rate 2022-05-07 00:00:00 59 /min [facility] Respiratory rate 2022-05-07 00:00:00 14 /min Univ ersity of [facility] Oxygen saturation in 2022-05-07 00:00:00 99 /min University of Arterial blood by [place] [employer] porfirio Pulse oximetry Branch Body temperature 2022-05-06 20:12:00 36.5 Amina [facility] ers[facility] [place] [facility] Body height 2022-05-06 20:12:00 162.6 cm [facility] Body weight 2022-05-06 20:12:00 78.926 [...] 96 /min University of Arterial blood by [place] [employer] porfirio Pulse oximetry Branch Systolic blood 2022-03-05 15:23:00 167 mm[Hg] Univer sity of pressure [facility] Diastolic blood 2022-03-05 15:23:00 105 mm[Hg] Unive rsity of pressure [facility] Heart rate 2022-03-05 15:23:00 49 /min [facility] [place] [facility] Body temperature 2022-03-05 15:18:00 36.67 Amina Univ ers[facility] Respiratory rate 2022-03-05 15:18:00 18 /min Univ ersity of [facility] Body height 2022-03-05 15:18:00 162.6 cm [facility] Body weight 2022-03-05 15:18:00 74.707 kg [facility] [place] [facility] BMI 2022-03-05 15:18:00 28.27 kg/m2 [facility] [place] [facility] Systolic blood 2022-02-16 21:41:00 169 mm[Hg] Univer sity of pressure [facility] Diastolic blood 2022-02-16 21:41:00 86 mm[Hg] Unive rsity of pressure [facility] Heart rate 2022-02-16 21:41:00 51 /min [facility] [place] [facility] Body temperature 2022-02-16 21:41:00 36.56 Amina Univ ersity of [facility] Respiratory rate 2022-02-16 21:41:00 17 /min Univ ersity of [facility] Oxygen saturation in 2022-02-16 21:41:00 98 /min University of Arterial blood by [facility] Pulse oximetry Branch Body height 2022-02-11 16:02:00 162.6 cm [facility] [place] [facility] Body weight 2022-02-11 16:02:00 79.379 kg [facility] [place] [facility] BMI 2022-02-11 16:02:00 30.04 kg/m2 [facility] [place] [facility] Systolic blood 2021-11-20 13:47:00 165 mm[Hg] Univer sity of pressure [facility] Diastolic blood 2021-11-20 13:47:00 83 mm[Hg] Unive rsity of pressure [facility] Heart rate 2021-11-20 13:47:00 58 /min [facility] [place] [facility] Body temperature 2021-11-20 13:42:00 36.39 Amina Univ ersity of [facility] Respiratory rate 2021-11-20 13:42:00 16 /min Univ ersity of [facility] Body height 2021-11-20 13:42:00 162.6 cm [facility] Body weight 2021-11-20 13:42:00 84.369 kg [facility] [place] [facility] BMI 2021-11-20 13:42:00 31.93 kg/m2 Universi ty of [facility] Systolic blood 2021-07-14 15:18:00 142 mm[Hg] [facility] Diastolic blood 2021-07-14 15:18:00 76 mm[Hg] [facility] Heart rate 2021-07-14 15:18:00 61 [facility] 2021-07-14 15:18:00 [facility]6 [facility] Body weight 2021-07-14 15:18:00 [facility]802 [facility] 2021-07-14 [facility]:18[facility] 2022-05-10 22:00:00 159 mm[Hg] Univer sity of pressure [facility] Diastolic blood 2022-05-10 22:00:00 87 mm[Hg] Unive rsity of pressure [facility] Heart rate 2022-05-10 22:00:00 56 /min [facility] [place] [facility] Body temperature 2022-05-10 22:00:00 36.61 Amina [facility] Respiratory rate 2022-05-10 22:00:00 17 /min [facility] in 2022-05-10 22:00:00 98 /min [facility] Arterial blood by [facility] Pulse oximetry Branch Body weight 2022-05-10 16:29:00 78.926 kg [facility] [place] [facility] BMI 2022-05-10 16:29:00 29.87 kg/m2 [facility] [place] [facility] Body height 2022-05-06 20:12:00 162.6 cm Universi ty of [facility] Systolic blood 2022-03-05 15:23:00 167 mm[Hg] Univer sity of pressure [facility] Diastolic blood 2022-03-05 15:23:00 105 mm[Hg] Unive rsity of pressure [facility] Heart rate 2022-03-05 15:23:00 49 /min [facility] Body temperature 2022-03-05 15:18:00 36.67 Amina [facility] Respiratory rate 2022-03-05 15:18:00 18 /min [facility] Body height 2022-03-05 15:18:00 162.6 cm [facility] Body weight 2022-03-05 15:18:00 74.707 kg [facility] BMI 2022-03-05 15:18:00 28.27 kg/m2 [facility] Oxygen saturation in 2022-02-16 21:41:00 98 /min University Arterial blood by [facility] Pulse oximetry Branch Systolic blood 2020-12-08 15:48:00 125 mm[Hg] [facility] pressure Diastolic blood 2020-12-08 15:48:00 76 mm[Hg] [facility] pressure Heart rate 2020-12-08 15:48:00 64 /min [facility] Body temperature 2020-12-08 15:48:00 36.61 Amina [facility] Respiratory rate 2020-12-08 15:48:00 17 /min [facility] Body height 2020-12-08 15:48:00 162.6 cm [facility] Body weight 2020-12-08 15:48:00 98.884 kg [facility] BMI 2020-12-08 15:48:00 37.42 kg/m2 [facility] Oxygen saturation in 2020-12-08 15:48:00 97 /min [facility] Arterial blood by Pulse oximetry Respitory Rate 2020-08-30 13:00:00 Memori al Marty Systolic (mm Hg) 2020-08-30 13:00:00 Caesar rial [place] Diastolic (mm Hg) 2020-08-30 13:00:00 Mem orial [place] Systolic (mm Hg) 2020-08-30 11:00:00 Caesar rial [facility] Diastolic (mm Hg) 2020-08-30 11:00:00 Mem orial [place] Temperature Oral (F) 2020-08-30 11:00:00 98.4 F [facility] [place] Respitory Rate 2020-08-30 11:00:00 Memori al [facility] Respitory Rate 2020-08-30 10:00:00 Memori al [place] Systolic (mm Hg) 2020-08-30 10:00:00 Caesar jonatan [facility] Diastolic (mm Hg) 2020-08-30 10:00:00 Mem orial [place] Temperature Oral (F) 2020-08-30 00:00:00 96.9 F [facility] [place] Temperature Oral (F) 2020-08-29 11:26:00 97.6 F [facility] Marty Height 2020-08-29 10:30:00 162.56 cm [facility] 2020-08-29 10:30:00 [facility] BMI Calculated 2020-08-29 10:30:00 [place] Hammond Procedures Procedure Date / Time Performing Clinician Source Performed URINALYSIS 2022-05-10 19:36:00 Home Matthews [facility] TROPONIN I 2022-05-10 18:34:00 Home Matthews [facility] COMP. METABOLIC PANEL 2022-05-10 18:34:00 Home Matthews [facility] ([id number]) [facility] CBC WITH DIFF 2022-05-10 18:34:00 Home Matthews [facility] XR CHEST 2 VW 2022-05-10 17:24:58 Home Matthews [facility] CONSENT/REFUSAL FOR 2022-05-10 16:26:23 Doctor Unassigned, [facility] DIAGNOSIS AND TREATMENT [place] [facility] CONSENT/REFUSAL FOR 2022-05-10 16:26:09 Doctor Unassigned, [facility] DIAGNOSIS AND TREATMENT [place] [facility] URINALYSIS 2022-05-08 22:43:00 Theresa Hickman [facility] XR CHEST 2 VW 2022-05-06 22:56:53 Anette Olea [facility] COMP. METABOLIC PANEL 2022-05-06 22:14:00 Anette Olea [facility] ([id number]) [facility] CBC WITH DIFF 2022-05-06 22:14:00 Anette Olea [facility] COVID-19 (ID NOW RAPID 2022-05-06 22:14:00 Anette Olea [facility] TESTING) [facility] BASIC METABOLIC PANEL (NA, 2022-04-22 21:23:00 Paulette Gray [facility] K, CL, CO2, GLUCOSE, BUN, Medica l Branch CREATININE, CA) CBC WITH DIFF 2022-04-22 21:23:00 Paulette Gray [facility] CONSENT/REFUSAL FOR 2022-04-22 19:45:46 Doctor Unassigned, [facility] DIAGNOSIS AND TREATMENT [place] [facility] SARS-COV-2 COVID-19 2022-03-05 16:09:27 [facility] DIMITRIS-SUCROSE VACCINE [address] [place] [address] YRS+, BIVALENT 0.3ML, IM, (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) FLU 2022-03-05 16:09:27 [facility] VACC(),65+YR,0.5 Medica l Branch ML,IM,ADJUVANTED,QUAD(FLUA D) FLU 2022-03-05 16:09:27 [facility] VACC(),65+YR,0.5 Medica [facility] ML,IM,ADJUVANTED,QUAD(FLUA D) SARS-COV-2 COVID-19 2022-03-05 16:09:27 [facility] DIMITRIS-SUCROSE VACCINE [address] [place] [address] YRS+, BIVALENT 0.3ML, IM, (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) MAGNESIUM 2022-02-15 09:41:00 Radha Sofia [facility] BASIC METABOLIC PANEL (NA, 2022-02-15 09:41:00 Sofia Garcia [facility] K, CL, CO2, GLUCOSE, BUN, Medica l Branch CREATININE, CA) CBC WITH DIFF 2022-02-15 09:41:00 Sofia Garcia [facility] N-TERMINAL PRO-BNP 2022-02-15 09:41:00 Sofia Garcia [facility] CBC WITH DIFF 2022-02-15 09:41:00 Sofia Garcia [facility] BASIC METABOLIC PANEL (NA, 2022-02-15 09:41:00 Sofia Garcia [facility] K, CL, CO2, GLUCOSE, BUN, Medica l Branch CREATININE, CA) MAGNESIUM 2022-02-15 09:41:00 Sofia Garcia [facility] N-TERMINAL PRO-BNP 2022-02-15 09:41:00 Sofia Garcia [facility] BASIC METABOLIC PANEL (NA, 2022-02-13 09:40:00 [facility], CO2, GLUCOSE, BUN, Medica l Branch CREATININE, CA) CBC WITH DIFF 2022-02-13 09:40:00 Sofia Garcia [facility] BASIC METABOLIC PANEL (NA, 2022-02-13 09:40:00 Radha [facility] K, CL, CO2, GLUCOSE, BUN, Medica l Branch CREATININE, CA) CBC WITH DIFF 2022-02-13 09:40:00 Radha [facility] TROPONIN I 2022-02-11 23:41:00 Radha [facility] N-TERMINAL PRO-BNP 2022-02-11 23:41:00 Sofia Garcia [facility] TROPONIN I 2022-02-11 23:41:00 Radha [facility] N-TERMINAL PRO-BNP 2022-02-11 23:41:00 Sofia Garcia [facility] HB ECG ROUTINE & RHYTHM 2022-02-11 22:15:36 Sofia Garcia [facility] TRANSTHORACIC ECHO (TTE) 2022-02-11 21:26:50 [facility]E) 2022-02-11 21:26:50 [facility] 2022-02-11 07:45:43 Reilly Means [facility] CT ABDOMEN PELVIS W 2022-02-11 07:45:43 Reilly Means [facility] CONTRAST [facility] RAPID INFLUENZA A/B 2022-02-11 06:54:00 Reilly Means [facility] RAPID INFLUENZA A/B 2022-02-11 06:54:00 Reilly Means [facility] URINALYSIS 2022-02-11 06:45:00 Reilly Means [facility] URINE CULTURE 2022-02-11 06:45:00 Reilly Means [facility] URINALYSIS 2022-02-11 06:45:00 Reilly Means [facility] URINE CULTURE 2022-02-11 06:45:00 Reilly Means [facility] HB ECG ROUTINE & RHYTHM 2022-02-11 05:22:08 Reilly Means [facility] HB ECG ROUTINE & RHYTHM 2022-02-11 05:22:08 Reilly Means [facility] BLOOD CULTURE SCREEN 2022-02-11 04:58:00 Reilly Means [facility] TROPONIN I 2022-02-11 04:58:00 Reilly Means [facility] COMP. METABOLIC PANEL 2022-02-11 04:58:00 [id number] CBC WITH DIFF 2022-02-11 04:58:00 Reilly Means [facility] PROTHROMBIN TIME / INR 2022-02-11 04:58:00 Reilly Means [facility] ACTIVATED PARTIAL THRMPLAS 2022-02-11 04:58:00 Reilly Means [facility] N-TERMINAL PRO-BNP 2022-02-11 04:58:00 Reilly Means [facility] LACTIC ACID WHOLE BLOOD 2022-02-11 04:58:00 Reilly Means [facility] COVID-19 (ID NOW RAPID 2022-02-11 04:58:00 Reilly Means [facility] TESTING) Medical [facility] LAB ONLY COVID 2022-02-11 04:58:[address] [facility] CBC WITH DIFF 2022-02-11 04:58:00 Reilly Means [facility] ACTIVATED PARTIAL THRMPLAS 2022-02-11 04:58:00 Reilly Means [facility] PROTHROMBIN TIME / INR 2022-02-11 04:58:00 Reilly Means [facility] COVID-19 (ID NOW RAPID 2022-02-11 04:58:00 Reilly Means [facility] TESTING) [facility] COMP. METABOLIC PANEL 2022-02-11 04:58:00 Reilly Means [facility] ([id number]) [facility] TROPONIN I 2022-02-11 04:58:00 Miguelangel Reilly [facility] N-TERMINAL PRO-BNP 2022-02-11 04:58:00 Reilly Means [facility] BLOOD CULTURE SCREEN 2022-02-11 04:58:00 Reilly Means [facility] LACTIC ACID WHOLE BLOOD 2022-02-11 04:58:00 Reilly Means [facility] LAB ONLY COVID 2022-02-11 04:58:[address] [facility] INTERPRETATION [facility] XR CHEST 1 VW 2022-02-11 04:27:42 Miguelangel Reilly [facility] XR CHEST 1 2022-02-11 04:27:42 Reilly Means [facility] HOSPITAL ADMISSION 2022-02-10 05:01:00 Doctor Unassigned, [facility] [place] HOSPITAL ADMISSION 2022-02-10 05:01:00 Doctor Unassigned, [facility] Name Medical Branch ECG 12-LEAD 2021-07-14 15:14:00 Elan Lira [facility] [id number] 2021-06-17 00:00:00 RASSA [facility] GASTROINTESTINAL PANEL 2020-12-08 22:21:00 Eliseo Arce [facility] XR ABDOMEN 1 2020-12-08 18:06:32 Eliseo Arce spital OR [place] < 1 HOUR 2020-09-05 22:39:00 Eliseo Arce spital SURGICAL PATHOLOGY REQUEST 2020-09-05 21:54:00 Eliseo Arce [facility] XR CHEST 1 PORTABLE 2020-09-05 19:55:00 [facility] DIS[facility] PATIENT 2020-09-05 17:27:55 Lucas Harris [facility] MA AN ELECTIVE 2020-09-05 16:47:23 [facility], INTRAOPERATIVE 2020-09-05 16:27:00 Eliseo Arce [facility] PARTIAL THROMBOPLASTIN 2020-09-05 15:04:00 Sarai Maharaj [facility] TIME (PTT) M. PROTHROMBIN TIME WITH INR 2020-09-05 15:04:00 Mindy Maharaj [facility] M. Plan of Care Planned Activity Planned Date Details Comments Source Future Scheduled 2022-12-13 Screening for [facility] Test 16:46:16 malignant neoplasm of colon (procedure) [code = 571667321] Future Scheduled 2022-12-13 Screening for [facility] Test 16:46:16 malignant neoplasm of colon (procedure) [code = 635236756] Future Scheduled 2022-12-13 Screening for [facility] Test 16:46:16 malignant neoplasm of colon (procedure) [code = 329472934] Future Scheduled 2022-12-13 SHINGLES VACCINES (1 Met [facility] Test 16:46:16 of 2) [code = SHINGLES VACCINES (1 of 2)] Future Scheduled 2022-12-13 BREAST CANCER [facility] Test 16:46:16 SCREENING [code = BREAST CANCER SCREENING] Future Scheduled 2022-12-13 Screening for [facility] Test 16:46:16 malignant neoplasm of colon (procedure) [code = 992635683] Future Scheduled 2022-12-13 Screening for [facility] Test 16:46:16 malignant neoplasm of colon (procedure) [code = 493900973] Future Scheduled 2022-12-13 HEPATITIS B VACCINES Met [facility] Test 16:46:16 (1 of 3 - Risk 3-dose series) [code = HEPATITIS B VACCINES (1 of 3 - Risk 3-dose series)] Future Scheduled 2022-12-13 COVID-19 VACCINE (3 - Me [facility] Test 16:46:16 Pfizer series) [code = COVID-19 VACCINE (3 - Pfizer series)] Future Scheduled 2022-12-13 65+ [facility]CCAL [facility] Test 16:46:16 VACCINE (4 - PPSV23 if available, else PCV20) [code = 65+ PNEUMOCOCCAL VACCINE (4 - PPSV23 if available, else PCV20)] Future Scheduled 2022-12-13 [facility]INE [facility] 16:46:16 [code = INFLUENZA VACCINE] Future Scheduled 2022-12-13 Screening for [facility] Test 16:46:16 malignant neoplasm of colon (procedure) [code = 583996889] Future Scheduled 2022-12-13 Screening for [facility] Test 16:46:16 malignant neoplasm of colon (procedure) [code = 779918741] Future Scheduled 2022-12-13 Screening for [facility] Test 16:46:16 malignant neoplasm of colon (procedure) [code = 006930138] Future Scheduled 2022-12-13 SHINGLES VACCINES (1 Met [facility] Test 16:46:16 of 2) [code = SHINGLES VACCINES (1 of 2)] Future Scheduled 2022-12-13 BREAST CANCER [facility] Test 16:46:16 SCREENING [code = BREAST CANCER SCREENING] Future Scheduled 2022-12-13 Screening for [facility] Test 16:46:16 malignant neoplasm of colon (procedure) [code = 552846770] Future Scheduled 2022-12-13 Screening for [facility] Test 16:46:16 malignant neoplasm of colon (procedure) [code = 271349120] Future Scheduled 2022-12-13 HEPATITIS B VACCINES Met [facility] Test 16:46:16 (1 of 3 - Risk 3-dose series) [code = HEPATITIS B VACCINES (1 of 3 - Risk 3-dose series)] Future Scheduled 2022-12-13 COVID-19 VACCINE (3 - Me [facility] Test 16:46:16 Pfizer series) [code = COVID-19 VACCINE (3 - Pfizer series)] Future Scheduled 2022-12-13 65+ P[facility]OCOCCAL [facility] Test 16:46:16 VACCINE (4 - PPSV23 if available, else PCV20) [code = 65+ PNEUMOCOCCAL VACCINE (4 - PPSV23 if available, else PCV20)] Future Scheduled 2022-12-13 INFLUENZA VACCINE Method [facility] Test 16:46:16 [code = INFLUENZA VACCINE] Future Scheduled 2022-12-13 Screening [facility] Test 16:46:16 malignant neoplasm of colon (procedure) [code = 158983293] Future Scheduled 2022-12-13 Screening for [facility] Test 16:46:16 malignant neoplasm of colon (procedure) [code = 144892347] Future Scheduled 2022-12-13 Screening for [facility] Test 16:46:16 malignant neoplasm of colon (procedure) [code = 447238810] Future Scheduled 2022-12-13 SHINGLES VACCINES (1 Met [facility] Test 16:46:16 of 2) [code = SHINGLES VACCINES (1 of 2)] Future Scheduled 2022-12-13 BREAST CANCER [facility] Test 16:46:16 SCREENING [code = BREAST CANCER SCREENING] Future Scheduled 2022-12-13 Screening for [facility] Test 16:46:16 malignant neoplasm of colon (procedure) [code = 182499127] Future Scheduled 2022-12-13 Screening for [facility] Test 16:46:16 malignant neoplasm of colon (procedure) [code = 203454998] Future Scheduled 2022-12-13 HEPATITIS B VACCINES Met [facility] Test 16:46:16 (1 of 3 - Risk 3-dose series) [code = HEPATITIS B VACCINES (1 of 3 - Risk 3-dose series)] Future Scheduled 2022-12-13 COVID-19 VACCINE (3 - Me [facility] Test 16:46:16 Pfizer series) [code = COVID-19 VACCINE (3 - Pfizer series)] Future Scheduled 2022-12-13 65+ P[facility]OCOCCAL [facility] Test 16:46:16 VACCINE (4 - PPSV23 if available, else PCV20) [code = 65+ PNEUMOCOCCAL VACCINE (4 - PPSV23 if available, else PCV20)] Future Scheduled 2022-12-13 INFLUENZA VACCINE Method [facility] Test 16:46:16 [code = INFLUENZA VACCINE] Future Scheduled 2022-11-11 Screening for [facility] Test 09:27:47 malignant neoplasm of colon (procedure) [code = 315412372] Future Scheduled 2022-11-11 Screening for [facility] Test 09:27:47 malignant neoplasm of colon (procedure) [code = 291163095] Future Scheduled 2022-11-11 Screening for [facility] Test 09:27:47 malignant neoplasm of colon (procedure) [code = 288731885] Future Scheduled 2022-11-11 SHINGLES VACCINES (1 Met [facility] Test 09:27:47 of 2) [code = SHINGLES VACCINES (1 of 2)] Future Scheduled 2022-11-11 BREAST CANCER [facility] Test 09:27:47 SCREENING [code = BREAST CANCER SCREENING] Future Scheduled 2022-11-11 Screening for [facility] Test 09:27:47 malignant neoplasm of colon (procedure) [code = 140528626] Future Scheduled 2022-11-11 Screening for [facility] Test 09:27:47 malignant neoplasm of colon (procedure) [code = 102021726] Future Scheduled 2022-11-11 HEPATITIS B VACCINES Met [facility] Test 09:27:47 (1 of 3 - Risk 3-dose series) [code = HEPATITIS B VACCINES (1 of 3 - Risk 3-dose series)] Future Scheduled 2022-11-11 COVID-19 VACCINE (3 - Me [facility] Test 09:27:47 Pfizer series) [code = COVID-19 VACCINE (3 - Pfizer series)] Future Scheduled 2022-11-11 65+ PNEUMOCOCCAL [facility] Test 09:27:47 VACCINE (4 - PPSV23 if available, else PCV20) [code = 65+ PNEUMOCOCCAL VACCINE (4 - PPSV23 if available, else PCV20)] Future Scheduled 2022-11-11 INFLUENZA VACCINE Method [facility] Test 09:27:47 [code = INFLUENZA VACCINE] Future Scheduled 2022-11-11 [facility] 09:27:47 malignant neoplasm of colon (procedure) [code = 471692532] Future Scheduled 2022-11-11 Screening for [facility] [facility] Test 09:27:47 malignant neoplasm of colon (procedure) [code = [id number]] Future Scheduled 2022-11-11 Screening for [facility] Test 09:27:47 malignant neoplasm of colon (procedure) [code = [id number]] Future Scheduled 2022-11-11 SHINGLES VACCINES (1 Met [facility] Test 09:27:47 of 2) [code = SHINGLES VACCINES (1 of 2)] Future Scheduled 2022-11-11 BREAST CANCER [facility] Test 09:27:47 SCREENING [code = BREAST CANCER SCREENING] Future Scheduled 2022-11-11 Screening for [facility] Test 09:27:47 malignant neoplasm of colon (procedure) [code = [id number]] Future Scheduled 2022-11-11 Screening for [facility] Test 09:27:47 malignant neoplasm of colon (procedure) [code = [id number]] Future Scheduled 2022-11-11 HEPATITIS B VACCINES Met [facility] Test 09:27:47 (1 of 3 - Risk 3-dose series) [code = HEPATITIS B VACCINES (1 of 3 - Risk 3-dose series)] Future Scheduled 2022-11-11 COVID-19 VACCINE (3 - Me [facility] Test 09:27:47 Pfizer series) [code = COVID-19 VACCINE (3 - Pfizer series)] Future Scheduled 2022-11-11 65+ PNEUMOCOCCAL [facility] Test 09:27:47 VACCINE (4 - PPSV23 if available, else PCV20) [code = 65+ PNEUMOCOCCAL VACCINE (4 - PPSV23 if available, else PCV20)] Future Scheduled 2022-11-11 INFLUENZA VACCINE Method [facility] Test 09:27:47 [code = INFLUENZA VACCINE] Future Scheduled 2022-11-11 Screening for [facility] Test 09:27:47 malignant neoplasm of colon (procedure) [code = [id number]] Future Scheduled 2022-11-11 Screening for [facility] Test 09:27:47 malignant neoplasm of colon (procedure) [code = [id number]] Future Scheduled 2022-11-11 Screening for [facility] Test 09:27:47 malignant neoplasm of colon (procedure) [code = [id number]] Future Scheduled 2022-11-11 SHINGLES VACCINES (1 Met [facility] Test 09:27:47 of 2) [code = SHINGLES VACCINES (1 of 2)] Future Scheduled 2022-11-11 BREAST CANCER [facility] Test 09:27:47 SCREENING [code = BREAST CANCER SCREENING] Future Scheduled 2022-11-11 Screening for [facility] Test 09:27:47 malignant neoplasm of colon (procedure) [code = [id number]] Future Scheduled 2022-11-11 Screening for [facility] Test 09:27:47 malignant neoplasm of colon (procedure) [code = [id number]] Future Scheduled 2022-11-11 HEPATITIS B VACCINES Met [facility] Test 09:27:47 (1 of 3 - Risk 3-dose series) [code = HEPATITIS B VACCINES (1 of 3 - Risk 3-dose series)] Future Scheduled 2022-11-11 COVID-19 VACCINE (3 - [facility] Test 09:27:47 Pfizer series) [code = COVID-19 VACCINE (3 - Pfizer series)] Future Scheduled 2022-11-11 65+ PNEUMOCOCCAL [facility] Test 09:27:47 VACCINE (4 - PPSV23 if available, else PCV20) [code = 65+ PNEUMOCOCCAL VACCINE (4 - PPSV23 if available, else PCV20)] Future Scheduled 2022-11-11 INFLUENZA VACCINE [facility] Test 09:27:47 [code = INFLUENZA VACCINE] Future Scheduled 2022-10-27 Screening for [facility] Test 22:40:19 malignant neoplasm of colon (procedure) [code = [id number]] Future Scheduled 2022-10-27 Screening for [facility] Test 22:40:19 malignant neoplasm of colon (procedure) [code = [id number]] Future Scheduled 2022-10-27 Screening for [facility] Test 22:40:19 malignant neoplasm of colon (procedure) [code = [id number]] Future Scheduled 2022-10-27 SHINGLES VACCINES (1 Met [facility] Test 22:40:19 of 2) [code = SHINGLES VACCINES (1 of 2)] Future Scheduled 2022-10-27 BREAST CANCER [facility] Test 22:40:19 SCREENING [code = BREAST CANCER SCREENING] Future Scheduled 2022-10-27 Screening for [facility] Test 22:40:19 malignant neoplasm of colon (procedure) [code = [id number]] Future Scheduled 2022-10-27 Screening for [facility] Test 22:40:19 malignant neoplasm of colon (procedure) [code = [id number]] Future Scheduled 2022-10-27 HEPATITIS B VACCINES Met [facility] Test 22:40:19 (1 of 3 - Risk 3-dose series) [code = HEPATITIS B VACCINES (1 of 3 - Risk 3-dose series)] Future Scheduled 2022-10-27 COVID-19 VACCINE (3 - Me [facility] Test 22:40:19 Pfizer series) [code = COVID-19 VACCINE (3 - Pfizer series)] Future Scheduled 2022-10-27 65+ PNEUMOCOCCAL [facility] Test 22:40:19 VACCINE (4 - PPSV23 if available, else PCV20) [code = 65+ PNEUMOCOCCAL VACCINE (4 - PPSV23 if available, else PCV20)] Future Scheduled 2022-10-27 INFLUENZA VACCINE [facility] Test 22:40:19 [code = INFLUENZA VACCINE] Future Scheduled 2022-10-27 Screening for [facility] Test 22:40:19 malignant neoplasm of colon (procedure) [code = [id number]] Future Scheduled 2022-10-27 Screening for [facility] Test 22:40:19 malignant neoplasm of colon (procedure) [code = [id number]] Future Scheduled 2022-10-27 Screening for [facility] Test 22:40:19 malignant neoplasm of colon (procedure) [code = [id number]] Future Scheduled 2022-10-27 SHINGLES VACCINES (1 Met [facility] Test 22:40:19 of 2) [code = SHINGLES VACCINES (1 of 2)] Future Scheduled 2022-10-27 BREAST CANCER [facility] Test 22:40:19 SCREENING [code = BREAST CANCER SCREENING] Future Scheduled 2022-10-27 Screening for [facility] Test 22:40:19 malignant neoplasm of colon (procedure) [code = [id number]] Future Scheduled 2022-10-27 Screening for [facility] Test 22:40:19 malignant neoplasm of colon (procedure) [code = [id number]] Future Scheduled 2022-10-27 HEPATITIS B VACCINES Met [facility] Test 22:40:19 (1 of 3 - Risk 3-dose series) [code = HEPATITIS B VACCINES (1 of 3 - Risk 3-dose series)] Future Scheduled 2022-10-27 COVID-19 VACCINE (3 - [facility] Test 22:40:19 Pfizer series) [code = COVID-19 VACCINE (3 - Pfizer series)] Future Scheduled 2022-10-27 65+ [facility] Test 22:40:19 VACCINE (4 - PPSV23 if available, else PCV20) [code = 65+ PNEUMOCOCCAL VACCINE (4 - PPSV23 if available, else PCV20)] Future Scheduled 2022-10-27 INFLUENZA VACCINE [facility] Test 22:40:19 [code = INFLUENZA VACCINE] Future Scheduled 2022-09-10 SHINGLES VACCINES (1 Met [facility] Test 15:06:53 of 2) [code = SHINGLES VACCINES (1 of 2)] Future Scheduled 2022-09-10 BREAST CANCER [facility] Test 15:06:53 SCREENING [code = BREAST CANCER SCREENING] Future Scheduled 2022-09-10 COLONOSCOPY SCREENING [facility] Test 15:06:53 [code = COLONOSCOPY SCREENING] Future Scheduled 2022-09-10 HEPATITIS B VACCINES Met [facility] Test 15:06:53 (1 of 3 - Risk 3-dose series) [code = HEPATITIS B VACCINES (1 of 3 - Risk 3-dose series)] Future Scheduled 2022-09-10 COVID-19 VACCINE (3 - Me [facility] Test 15:06:53 Booster for Pfizer series) [code = COVID-19 VACCINE (3 - Booster for Pfizer series)] Future Scheduled 2022-09-10 65+ [facility] Test 15:06:[facility] VACCINE (4 - PPSV23 if available, else PCV20) [code = 65+ PNEUMOCOCCAL VACCINE (4 - PPSV23 if available, else PCV20)] Future Scheduled 2022-09-10 INFLUENZA VACCINE Method [facility] Test 15:06:53 [code = INFLUENZA VACCINE] Future Scheduled 2022-09-10 SHINGLES VACCINES (1 Met [facility] Test 15:06:53 of 2) [code = SHINGLES VACCINES (1 of 2)] Future Scheduled 2022-09-10 BREAST CANCER [facility] Test 15:06:53 SCREENING [code = BREAST CANCER SCREENING] Future Scheduled 2022-09-10 COLONOSCOPY SCREENING [facility] Test 15:06:53 [code = COLONOSCOPY SCREENING] Future Scheduled 2022-09-10 HEPATITIS B VACCINES Met [facility] Test 15:06:53 (1 of 3 - Risk 3-dose series) [code = HEPATITIS B VACCINES (1 of 3 - Risk 3-dose series)] Future Scheduled 2022-09-10 COVID-19 VACCINE (3 - Me [facility] Test 15:06:53 Booster for Pfizer series) [code = COVID-19 VACCINE (3 - Booster for Pfizer series)] Future Scheduled 2022-09-10 65+ [facility] Test 15:06:[facility] VACCINE (4 - PPSV23 if available, else PCV20) [code = 65+ PNEUMOCOCCAL VACCINE (4 - PPSV23 if available, else PCV20)] Future Scheduled 2022-09-10 INFLUENZA VACCINE Method [facility] Test 15:06:53 [code = INFLUENZA VACCINE] Future Scheduled 2022-09-10 SHINGLES VACCINES (1 Met [facility] Test 15:06:53 of 2) [code = SHINGLES VACCINES (1 of 2)] Future Scheduled 2022-09-10 BREAST CANCER [facility] Test 15:06:53 SCREENING [code = BREAST CANCER SCREENING] Future Scheduled 2022-09-10 COLONOSCOPY SCREENING [facility] Test 15:06:53 [code = COLONOSCOPY SCREENING] Future Scheduled 2022-09-10 HEPATITIS B VACCINES Met [facility] Test 15:06:53 (1 of 3 - Risk 3-dose series) [code = HEPATITIS B VACCINES (1 of 3 - Risk 3-dose series)] Future Scheduled 2022-09-10 COVID-19 VACCINE (3 - Me [facility] Test 15:06:53 Booster for Pfizer series) [code = COVID-19 VACCINE (3 - Booster for Pfizer series)] Future Scheduled 2022-09-10 65+ [facility] Test 15:06:53 VACCINE (4 - PPSV23 if available, else PCV20) [code = 65+ PNEUMOCOCCAL VACCINE (4 - PPSV23 if available, else PCV20)] Future Scheduled 2022-09-10 INFLUENZA VACCINE Method [facility] Test 15:06:53 [code = INFLUENZA VACCINE] Future Scheduled 2022-09-10 SHINGLES VACCINES (1 Met [facility] Test 15:06:53 of 2) [code = SHINGLES VACCINES (1 of 2)] Future Scheduled 2022-09-10 BREAST CANCER [facility] Test 15:06:53 SCREENING [code = BREAST CANCER SCREENING] Future Scheduled 2022-09-10 COLONOSCOPY SCREENING [facility] Test 15:06:53 [code = COLONOSCOPY SCREENING] Future Scheduled 2022-09-10 HEPATITIS B VACCINES Met [facility] Test 15:06:53 (1 of 3 - Risk 3-dose series) [code = HEPATITIS B VACCINES (1 of 3 - Risk 3-dose series)] Future Scheduled 2022-09-10 COVID-19 VACCINE (3 - Me [facility] Test 15:06:53 Booster for Pfizer series) [code = COVID-19 VACCINE (3 - Booster for Pfizer series)] Future Scheduled 2022-09-10 65+ [facility] Test 15:06:53 VACCINE (4 - PPSV23 if available, else PCV20) [code = 65+ PNEUMOCOCCAL VACCINE (4 - PPSV23 if available, else PCV20)] Future Scheduled 2022-09-10 INFLUENZA VACCINE [facility] Test 15:06:53 [code = INFLUENZA VACCINE] Future Scheduled 2022-09-10 SHINGLES VACCINES (1 Met [facility] Test 15:06:53 of 2) [code = SHINGLES VACCINES (1 of 2)] Future Scheduled 2022-09-10 BREAST CANCER [facility] Test 15:06:53 SCREENING [code = BREAST CANCER SCREENING] Future Scheduled 2022-09-10 COLONOSCOPY SCREENING [facility] Test 15:06:53 [code = COLONOSCOPY SCREENING] Future Scheduled 2022-09-10 HEPATITIS B VACCINES Met [facility] Test 15:06:53 (1 of 3 - Risk 3-dose series) [code = HEPATITIS B VACCINES (1 of 3 - Risk 3-dose series)] Future Scheduled 2022-09-10 COVID-19 VACCINE (3 - [facility] Test 15:06:53 Booster for Pfizer series) [code = COVID-19 VACCINE (3 - Booster for Pfizer series)] Future Scheduled 2022-09-10 65+ PNEUMOCOCCAL [facility] Test 15:06:53 VACCINE (4 - PPSV23 if available, else PCV20) [code = 65+ PNEUMOCOCCAL VACCINE (4 - PPSV23 if available, else PCV20)] Future Scheduled 2022-09-10 INFLUENZA VACCINE [facility] Test 15:06:53 [code = INFLUENZA VACCINE] Future Scheduled 2022-09-10 SHINGLES VACCINES (1 Met [facility] Test 15:06:53 of 2) [code = SHINGLES VACCINES (1 of 2)] Future Scheduled 2022-09-10 BREAST CANCER [facility] Test 15:06:53 SCREENING [code = BREAST CANCER SCREENING] Future Scheduled 2022-09-10 COLONOSCOPY SCREENING [facility] Test 15:06:53 [code = COLONOSCOPY SCREENING] Future Scheduled 2022-09-10 HEPATITIS B VACCINES Met [facility] Test 15:06:53 (1 of 3 - Risk 3-dose series) [code = HEPATITIS B VACCINES (1 of 3 - Risk 3-dose series)] Future Scheduled 2022-09-10 COVID-19 VACCINE (3 - [facility] Test 15:06:53 Booster for Pfizer series) [code = COVID-19 VACCINE (3 - Booster for Pfizer series)] Future Scheduled 2022-09-10 65+ [facility] Test 15:06:53 VACCINE (4 - PPSV23 if available, else PCV20) [code = 65+ PNEUMOCOCCAL VACCINE (4 - PPSV23 if available, else PCV20)] Future Scheduled 2022-09-10 INFLUENZA VACCINE Method [facility] Test 15:06:53 [code = INFLUENZA VACCINE] Future Scheduled 2022-09-10 SHINGLES VACCINES (1 Met [facility] Test 15:06:53 of 2) [code = SHINGLES VACCINES (1 of 2)] Future Scheduled 2022-09-10 BREAST CANCER [facility] Test 15:06:53 SCREENING [code = BREAST CANCER SCREENING] Future Scheduled 2022-09-10 COLONOSCOPY SCREENING [facility] Test 15:06:53 [code = COLONOSCOPY SCREENING] Future Scheduled 2022-09-10 HEPATITIS B VACCINES Met [facility] Test 15:06:53 (1 of 3 - Risk 3-dose series) [code = HEPATITIS B VACCINES (1 of 3 - Risk 3-dose series)] Future Scheduled 2022-09-10 COVID-19 VACCINE (3 - [facility] Test 15:06:53 Booster for Pfizer series) [code = COVID-19 VACCINE (3 - Booster for Pfizer series)] Future Scheduled 2022-09-10 65+ [facility] Test 15:06:53 VACCINE (4 - PPSV23 if available, else PCV20) [code = 65+ PNEUMOCOCCAL VACCINE (4 - PPSV23 if available, else PCV20)] Future Scheduled 2022-09-10 INFLUENZA VACCINE Method [facility] Test 15:06:53 [code = INFLUENZA VACCINE] Future Scheduled 2022-09-10 SHINGLES VACCINES (1 Met [facility] Test 15:06:53 of 2) [code = SHINGLES VACCINES (1 of 2)] Future Scheduled 2022-09-10 BREAST CANCER [facility] Test 15:06:53 SCREENING [code = BREAST CANCER SCREENING] Future Scheduled 2022-09-10 COLONOSCOPY SCREENING [facility] Test 15:06:53 [code = COLONOSCOPY SCREENING] Future Scheduled 2022-09-10 HEPATITIS B VACCINES Met [facility] Test 15:06:53 (1 of 3 - Risk 3-dose series) [code = HEPATITIS B VACCINES (1 of 3 - Risk 3-dose series)] Future Scheduled 2022-09-10 COVID-19 VACCINE (3 - [facility] Test 15:06:53 Booster for Pfizer series) [code = COVID-19 VACCINE (3 - Booster for Pfizer series)] Future Scheduled 2022-09-10 65+ [facility]AL [facility] Test 15:06:53 VACCINE (4 - PPSV23 if available, else PCV20) [code = 65+ PNEUMOCOCCAL VACCINE (4 - PPSV23 if available, else PCV20)] Future Scheduled 2022-09-10 INFLUENZA VACCINE [facility] Test 15:06:53 [code = INFLUENZA VACCINE] Future Scheduled 2022-08-26 SHINGLES VACCINES (1 Met [facility] Test 14:43:48 of 2) [code = SHINGLES VACCINES (1 of 2)] Future Scheduled 2022-08-26 BREAST CANCER [facility] Test 14:43:48 SCREENING [code = BREAST CANCER SCREENING] Future Scheduled 2022-08-26 COLONOSCOPY SCREENING [facility] Test 14:43:48 [code = COLONOSCOPY SCREENING] Future Scheduled 2022-08-26 HEPATITIS B VACCINES Met [facility] Test 14:43:48 (1 of 3 - Risk 3-dose series) [code = HEPATITIS B VACCINES (1 of 3 - Risk 3-dose series)] Future Scheduled 2022-08-26 COVID-19 VACCINE (3 - Me [facility] Test 14:43:48 Booster for Pfizer series) [code = COVID-19 VACCINE (3 - Booster for Pfizer series)] Future Scheduled 2022-08-26 65+ [facility]AL [facility] Test 14:43:48 VACCINE (4 - PPSV23 if available, else PCV20) [code = 65+ PNEUMOCOCCAL VACCINE (4 - PPSV23 if available, else PCV20)] Future Scheduled 2022-08-26 INFLUENZA VACCINE [facility] Test 14:43:48 [code = INFLUENZA VACCINE] Future Scheduled 2022-08-07 SHINGLES VACCINES (1 Met [facility] Test 23:30:11 of 2) [code = SHINGLES VACCINES (1 of 2)] Future Scheduled 2022-08-07 BREAST CANCER [facility] Test 23:30:11 SCREENING [code = BREAST CANCER SCREENING] Future Scheduled 2022-08-07 COLONOSCOPY SCREENING [facility] Test 23:30:11 [code = COLONOSCOPY SCREENING] Future Scheduled 2022-08-07 HEPATITIS B VACCINES Met [facility] Test 23:30:11 (1 of 3 - Risk 3-dose series) [code = HEPATITIS B VACCINES (1 of 3 - Risk 3-dose series)] Future Scheduled 2022-08-07 COVID-19 VACCINE (3 - Me [facility] Test 23:30:11 Booster for Pfizer series) [code = COVID-19 VACCINE (3 - Booster for Pfizer series)] Future Scheduled 2022-08-07 65+ PNEUMOCOCCAL [facility] Test 23:30:11 VACCINE (4 - PPSV23 if available, else PCV20) [code = 65+ PNEUMOCOCCAL VACCINE (4 - PPSV23 if available, else PCV20)] Future Scheduled 2022-08-07 INFLUENZA VACCINE [facility] Test 23:30:11 [code = INFLUENZA VACCINE] Future Scheduled 2022-08-07 SHINGLES VACCINES (1 Met [facility] Test 23:30:11 of 2) [code = SHINGLES VACCINES (1 of 2)] Future Scheduled 2022-08-07 BREAST CANCER [facility] Test 23:30:11 SCREENING [code = BREAST CANCER SCREENING] Future Scheduled 2022-08-07 COLONOSCOPY SCREENING [facility] Test 23:30:11 [code = COLONOSCOPY SCREENING] Future Scheduled 2022-08-07 HEPATITIS B VACCINES Met [facility] Test 23:30:11 (1 of 3 - Risk 3-dose series) [code = HEPATITIS B VACCINES (1 of 3 - Risk 3-dose series)] Future Scheduled 2022-08-07 COVID-19 VACCINE (3 - [facility] Test 23:30:11 Booster for Pfizer series) [code = COVID-19 VACCINE (3 - Booster for Pfizer series)] Future Scheduled 2022-08-07 65+ [facility]CCAL [facility] Test 23:30:11 VACCINE (4 - PPSV23 if available, else PCV20) [code = 65+ PNEUMOCOCCAL VACCINE (4 - PPSV23 if available, else PCV20)] Future Scheduled 2022-08-07 INFLUENZA VACCINE [facility] Test 23:30:11 [code = INFLUENZA VACCINE] Future Scheduled 2022-08-06 SHINGLES VACCINES (1 Met [facility] Test 15:48:02 of 2) [code = SHINGLES VACCINES (1 of 2)] Future Scheduled 2022-08-06 BREAST CANCER [facility] Test 15:48:02 SCREENING [code = BREAST CANCER SCREENING] Future Scheduled 2022-08-06 COLONOSCOPY SCREENING Me [facility] Test 15:48:02 [code = COLONOSCOPY SCREENING] Future Scheduled 2022-08-06 HEPATITIS B VACCINES Met [facility] Test 15:48:02 (1 of 3 - Risk 3-dose series) [code = HEPATITIS B VACCINES (1 of 3 - Risk 3-dose series)] Future Scheduled 2022-08-06 COVID-19 VACCINE (3 - Me [facility] Test 15:48:02 Booster for Pfizer series) [code = COVID-19 VACCINE (3 - Booster for Pfizer series)] Future Scheduled 2022-08-06 65+ [facility] 15:48:02 VACCINE (4 - PPSV23 if available, else PCV20) [code = 65+ PNEUMOCOCCAL VACCINE (4 - PPSV23 if available, else PCV20)] Future Scheduled 2022-08-06 INFLUENZA VACCINE [facility] Test 15:48:02 [code = INFLUENZA VACCINE] Future Scheduled 2022-06-11 SHINGLES VACCINES (1 Met [facility] Test 16:10:12 of 2) [code = SHINGLES VACCINES (1 of 2)] Future Scheduled 2022-06-11 BREAST CANCER [facility] Test 16:10:12 SCREENING [code = BREAST CANCER SCREENING] Future Scheduled 2022-06-11 COLONOSCOPY SCREENING [facility] Test 16:10:12 [code = COLONOSCOPY SCREENING] Future Scheduled 2022-06-11 HEPATITIS B VACCINES Met [facility] Test 16:10:12 (1 of 3 - Risk 3-dose series) [code = HEPATITIS B VACCINES (1 of 3 - Risk 3-dose series)] Future Scheduled 2022-06-11 COVID-19 VACCINE (3 - Me [facility] Test 16:10:12 Booster for [...] 2022-06-11 SHINGLES VACCINES (1 Met [facility] Test 16:10:12 of 2) [code = SHINGLES VACCINES (1 of 2)] Future Scheduled 2022-06-11 BREAST CANCER [facility] Test 16:10:12 SCREENING [code = BREAST CANCER SCREENING] Future Scheduled 2022-06-11 COLONOSCOPY SCREENING [facility] Test 16:10:12 [code = COLONOSCOPY SCREENING] Future Scheduled 2022-06-11 HEPATITIS B VACCINES Met [facility] Test 16:10:12 (1 of 3 - Risk 3-dose series) [code = HEPATITIS B VACCINES (1 of 3 - Risk 3-dose series)] Future Scheduled 2022-06-11 COVID-19 VACCINE (3 - Me [facility] Test 16:10:12 Booster for Pfizer series) [code = COVID-19 VACCINE (3 - Booster for Pfizer series)] Future Scheduled 2022-06-11 65+ [facility]CCAL [facility] Test 16:10:12 VACCINE (4 - PPSV23 if available, else PCV20) [code = 65+ PNEUMOCOCCAL VACCINE (4 - PPSV23 if available, else PCV20)] Future Scheduled 2022-06-11 INFLUENZA VACCINE [facility] Test 16:10:12 [code = INFLUENZA VACCINE] Future Scheduled 2022-06-11 SHINGLES VACCINES (1 Met [facility] Test 16:10:12 of 2) [code = SHINGLES VACCINES (1 of 2)] Future Scheduled 2022-06-11 BREAST CANCER [facility] Test 16:10:12 SCREENING [code = BREAST CANCER SCREENING] Future Scheduled 2022-06-11 COLONOSCOPY SCREENING [facility] Test 16:10:12 [code = COLONOSCOPY SCREENING] Future Scheduled 2022-06-11 HEPATITIS B VACCINES Met [facility] Test 16:10:12 (1 of 3 - Risk 3-dose series) [code = HEPATITIS B VACCINES (1 of 3 - Risk 3-dose series)] Future Scheduled 2022-06-11 COVID-19 VACCINE (3 - Me [facility] Test 16:10:12 Booster for Pfizer series) [code = COVID-19 VACCINE (3 - Booster for Pfizer series)] Future Scheduled 2022-06-11 65+ P[facility]OCOCCAL [facility] Test 16:10:12 VACCINE (4 - PPSV23 if available, else PCV20) [code = 65+ PNEUMOCOCCAL VACCINE (4 - PPSV23 if available, else PCV20)] Future Scheduled 2022-06-11 INFLUENZA VACCINE [facility] Test 16:10:12 [code = INFLUENZA VACCINE] Future Scheduled 2022-06-11 SHINGLES VACCINES (1 Met [facility] Test 16:10:12 of 2) [code = SHINGLES VACCINES (1 of 2)] Future Scheduled 2022-06-11 BREAST CANCER [facility] Test 16:10:12 SCREENING [code = BREAST CANCER SCREENING] Future Scheduled 2022-06-11 COLONOSCOPY SCREENING [facility] Test 16:10:12 [code = COLONOSCOPY SCREENING] Future Scheduled 2022-06-11 HEPATITIS B VACCINES Met [facility] Test 16:10:12 (1 of 3 - Risk 3-dose series) [code = HEPATITIS B VACCINES (1 of 3 - Risk 3-dose series)] Future Scheduled 2022-06-11 COVID-19 VACCINE (3 - Me [facility] Test 16:10:12 Booster for Pfizer series) [code = COVID-19 VACCINE (3 - Booster for Pfizer series)] Future Scheduled 2022-06-11 65+ P[facility]OCOCCAL [facility] Test 16:10:12 VACCINE (4 - PPSV23 if available, else PCV20) [code = 65+ PNEUMOCOCCAL VACCINE (4 - PPSV23 if available, else PCV20)] Future Scheduled 2022-06-11 INFLUENZA VACCINE [facility] Test 16:10:12 [code = INFLUENZA VACCINE] Future Scheduled 2022-06-11 SHINGLES VACCINES (1 Met [facility] Test 16:10:12 of 2) [code = SHINGLES VACCINES (1 of 2)] Future Scheduled 2022-06-11 BREAST CANCER [facility] Test 16:10:12 SCREENING [code = BREAST CANCER SCREENING] Future Scheduled 2022-06-11 COLONOSCOPY SCREENING [facility] Test 16:10:12 [code = COLONOSCOPY SCREENING] Future Scheduled 2022-06-11 HEPATITIS B VACCINES Met [facility] Test 16:10:12 (1 of 3 - Risk 3-dose series) [code = HEPATITIS B VACCINES (1 of 3 - Risk 3-dose series)] Future Scheduled 2022-06-11 COVID-19 VACCINE (3 - Me [facility] Test 16:10:12 Booster for Pfizer series) [code = COVID-19 VACCINE (3 - Booster for Pfizer series)] Future Scheduled 2022-06-11 65+ [facility]CCAL [facility] Test 16:10:12 VACCINE (4 - PPSV23 if available, else PCV20) [code = 65+ PNEUMOCOCCAL VACCINE (4 - PPSV23 if available, else PCV20)] Future Scheduled 2022-06-11 INFLUENZA VACCINE Method [facility] Test 16:10:12 [code = INFLUENZA VACCINE] Future Scheduled 2022-06-11 SHINGLES VACCINES (1 Met [facility] Test 16:10:12 of 2) [code = SHINGLES VACCINES (1 of 2)] Future Scheduled 2022-06-11 BREAST CANCER [facility] Test 16:10:12 SCREENING [code = BREAST CANCER SCREENING] Future Scheduled 2022-06-11 COLONOSCOPY SCREENING [facility] Test 16:10:12 [code = COLONOSCOPY SCREENING] Future Scheduled 2022-06-11 HEPATITIS B VACCINES Met [facility] Test 16:10:12 (1 of 3 - Risk 3-dose series) [code = HEPATITIS B VACCINES (1 of 3 - Risk 3-dose series)] Future Scheduled 2022-06-11 COVID-19 VACCINE (3 - [facility] Test 16:10:12 Booster for Pfizer series) [code = COVID-19 VACCINE (3 - Booster for Pfizer series)] Future Scheduled 2022-06-11 65+ [facility]OCOCCAL [facility] Test 16:10:12 VACCINE (4 - PPSV23 if available, else PCV20) [code = 65+ PNEUMOCOCCAL VACCINE (4 - PPSV23 if available, else PCV20)] Future Scheduled 2022-06-11 INFLUENZA VACCINE [facility] Test 16:10:12 [code = INFLUENZA VACCINE] Future Scheduled 2022-06-11 SHINGLES VACCINES (1 Met [facility] Test 16:10:12 of 2) [code = SHINGLES VACCINES (1 of 2)] Future Scheduled 2022-06-11 BREAST CANCER [facility] Test 16:10:12 SCREENING [code = BREAST CANCER SCREENING] Future Scheduled 2022-06-11 COLONOSCOPY SCREENING [facility] Test 16:10:12 [code = COLONOSCOPY SCREENING] Future Scheduled 2022-06-11 HEPATITIS B VACCINES Met [facility] Test 16:10:12 (1 of 3 - Risk 3-dose series) [code = HEPATITIS B VACCINES (1 of 3 - Risk 3-dose series)] Future Scheduled 2022-06-11 COVID-19 VACCINE (3 - Me [facility] Test 16:10:12 Booster for Pfizer series) [code = COVID-19 VACCINE (3 - Booster for Pfizer series)] Future Scheduled 2022-06-11 65+ P[facility]OC[facility]CCAL [facility] Test 16:10:12 VACCINE (4 - PPSV23 if available, else PCV20) [code = 65+ PNEUMOCOCCAL VACCINE (4 - PPSV23 if available, else PCV20)] Future Scheduled 2022-06-11 INFLUENZA VACCINE [facility] Test 16:10:12 [code = INFLUENZA VACCINE] Future Scheduled 2022-06-11 SHINGLES VACCINES (1 Met [facility] Test 16:10:12 of 2) [code = SHINGLES VACCINES (1 of 2)] Future Scheduled 2022-06-11 BREAST CANCER [facility] Test 16:10:12 SCREENING [code = BREAST CANCER SCREENING] Future Scheduled 2022-06-11 COLONOSCOPY SCREENING Me [facility] Test 16:10:12 [code = COLONOSCOPY SCREENING] Future Scheduled 2022-06-11 HEPATITIS B VACCINES Met [facility] Test 16:10:12 (1 of 3 - Risk 3-dose series) [code = HEPATITIS B VACCINES (1 of 3 - Risk 3-dose series)] Future Scheduled 2022-06-11 COVID-19 VACCINE (3 - Me [facility] Test 16:10:12 Booster for Pfizer series) [code = COVID-19 VACCINE (3 - Booster for Pfizer series)] Future Scheduled 2022-06-11 65+ [facility]OCOCCAL [facility] Test 16:10:12 VACCINE (4 - PPSV23 if available, else PCV20) [code = 65+ PNEUMOCOCCAL VACCINE (4 - PPSV23 if available, else PCV20)] Future Scheduled 2022-06-11 INFLUENZA VACCINE [facility] Test 16:10:12 [code = INFLUENZA VACCINE] Future Scheduled 2022-06-11 SHINGLES VACCINES (1 Met [facility] Test 16:10:12 of 2) [code = SHINGLES VACCINES (1 of 2)] Future Scheduled 2022-06-11 BREAST CANCER [facility] Test 16:10:12 SCREENING [code = BREAST CANCER SCREENING] Future Scheduled 2022-06-11 COLONOSCOPY SCREENING Me [facility] Test 16:10:12 [code = COLONOSCOPY SCREENING] Future Scheduled 2022-06-11 HEPATITIS B VACCINES Met [facility] Test 16:10:12 (1 of 3 - Risk 3-dose series) [code = HEPATITIS B VACCINES (1 of 3 - Risk 3-dose series)] Future Scheduled 2022-06-11 COVID-19 VACCINE (3 - Me [facility] Test 16:10:12 Booster for Pfizer series) [code = COVID-19 VACCINE (3 - Booster for Pfizer series)] Future Scheduled 2022-06-11 65+ [facility]AL [facility] Test 16:10:12 VACCINE (4 - PPSV23 if available, else PCV20) [code = 65+ PNEUMOCOCCAL VACCINE (4 - PPSV23 if available, else PCV20)] Future Scheduled 2022-06-11 INFLUENZA VACCINE [facility] Test 16:10:12 [code = INFLUENZA VACCINE] Future Scheduled 2022-05-10 SHINGLES VACCINES (1 Met [facility] Test 10:21:35 of 2) [code = SHINGLES VACCINES (1 of 2)] Future Scheduled 2022-05-10 BREAST CANCER [facility] Test 10:21:35 SCREENING [code = BREAST CANCER SCREENING] Future Scheduled 2022-05-10 COLONOSCOPY SCREENING [facility] Test 10:21:35 [code = COLONOSCOPY SCREENING] Future Scheduled 2022-05-10 HEPATITIS B VACCINES Met [facility] Test 10:21:35 (1 of 3 - Risk 3-dose series) [code = HEPATITIS B VACCINES (1 of 3 - Risk 3-dose series)] Future Scheduled 2022-05-10 COVID-19 VACCINE (3 - Me [facility] Test 10:21:35 Booster for Pfizer series) [code = COVID-19 VACCINE (3 - Booster for Pfizer series)] Future Scheduled 2022-05-10 65+ [facility]OC[facility]CCAL [facility] Test 10:21:35 VACCINE (4 - PPSV23 if available, else PCV20) [code = 65+ PNEUMOCOCCAL VACCINE (4 - PPSV23 if available, else PCV20)] Future Scheduled 2022-05-10 INFLUENZA VACCINE [facility] Test 10:21:35 [code = INFLUENZA VACCINE] Future Scheduled 2022-05-10 SHINGLES VACCINES (1 Met [facility] Test 10:21:35 of 2) [code = SHINGLES VACCINES (1 of 2)] Future Scheduled 2022-05-10 BREAST CANCER [facility] Test 10:21:35 SCREENING [code = BREAST CANCER SCREENING] Future Scheduled 2022-05-10 COLONOSCOPY SCREENING [facility] Test 10:21:35 [code = COLONOSCOPY SCREENING] Future Scheduled 2022-05-10 HEPATITIS B VACCINES Met [facility] Test 10:21:35 (1 of 3 - Risk 3-dose series) [code = HEPATITIS B VACCINES (1 of 3 - Risk 3-dose series)] Future Scheduled 2022-05-10 COVID-19 VACCINE (3 - Me [facility] Test 10:21:35 Booster for Pfizer series) [code = COVID-19 VACCINE (3 - Booster for Pfizer series)] Future Scheduled 2022-05-10 65+ [facility]CCAL [facility] Test 10:21:35 VACCINE (4 - PPSV23 if available, else PCV20) [code = 65+ PNEUMOCOCCAL VACCINE (4 - PPSV23 if available, else PCV20)] Future Scheduled 2022-05-10 INFLUENZA VACCINE [facility] Test 10:21:35 [code = INFLUENZA VACCINE] Future Scheduled 2022-05-06 SHINGLES VACCINES (1 Met [facility] Test 14:03:13 of 2) [code = SHINGLES VACCINES (1 of 2)] Future Scheduled 2022-05-06 BREAST CANCER [facility] Test 14:03:13 SCREENING [code = BREAST CANCER SCREENING] Future Scheduled 2022-05-06 COLONOSCOPY SCREENING [facility] Test 14:03:13 [code = COLONOSCOPY SCREENING] Future Scheduled 2022-05-06 HEPATITIS B VACCINES Met [facility] Test 14:03:13 (1 of 3 - Risk 3-dose series) [code = HEPATITIS B VACCINES (1 of 3 - Risk 3-dose series)] Future Scheduled 2022-05-06 COVID-19 VACCINE (3 - [facility] Test 14:03:13 Booster for Pfizer series) [code = COVID-19 VACCINE (3 - Booster for Pfizer series)] Future Scheduled 2022-05-06 65+ P[facility]OCOCCAL [facility] Test 14:03:13 VACCINE (4 - PPSV23 if available, else PCV20) [code = 65+ PNEUMOCOCCAL VACCINE (4 - PPSV23 if available, else PCV20)] Future Scheduled 2022-05-06 INFLUENZA VACCINE [facility] Test 14:03:13 [code = INFLUENZA VACCINE] Future Scheduled 2022-04-30 SHINGLES VACCINES (1 Met [facility] Test 01:07:32 of 2) [code = SHINGLES VACCINES (1 of 2)] Future Scheduled 2022-04-30 BREAST CANCER [facility] Test 01:07:32 SCREENING [code = BREAST CANCER SCREENING] Future Scheduled 2022-04-30 COLONOSCOPY SCREENING [facility] Test 01:07:32 [code = COLONOSCOPY SCREENING] Future Scheduled 2022-04-30 HEPATITIS B VACCINES Met [facility] Test 01:07:32 (1 of 3 - Risk 3-dose series) [code = HEPATITIS B VACCINES (1 of 3 - Risk 3-dose series)] Future Scheduled 2022-04-30 COVID-19 VACCINE (3 - [facility] Test 01:07:32 Booster for Pfizer series) [code = COVID-19 VACCINE (3 - Booster for Pfizer series)] Future Scheduled 2022-04-30 65+ PNEUMOCOCCAL [facility] Test 01:07:32 VACCINE (4 - PPSV23 if available, else PCV20) [code = 65+ PNEUMOCOCCAL VACCINE (4 - PPSV23 if available, else PCV20)] Future Scheduled 2022-04-30 INFLUENZA VACCINE [facility] Test 01:07:32 [code = INFLUENZA VACCINE] Future Scheduled 2022-04-30 SHINGLES VACCINES (1 Met [facility] Test 01:07:32 of 2) [code = SHINGLES VACCINES (1 of 2)] Future Scheduled 2022-04-30 BREAST CANCER [facility] Test 01:07:32 SCREENING [code = BREAST CANCER SCREENING] Future Scheduled 2022-04-30 COLONOSCOPY SCREENING [facility] Test 01:07:32 [code = COLONOSCOPY SCREENING] Future Scheduled 2022-04-30 HEPATITIS B VACCINES Met [facility] Test 01:07:32 (1 of 3 - Risk 3-dose series) [code = HEPATITIS B VACCINES (1 of 3 - Risk 3-dose series)] Future Scheduled 2022-04-30 COVID-19 VACCINE (3 - [facility] Test 01:07:32 Booster for Pfizer series) [code = COVID-19 VACCINE (3 - Booster for Pfizer series)] Future Scheduled 2022-04-30 65+ PNEUMOCOCCAL [facility] Test 01:07:32 VACCINE (4 - PPSV23 if available, else PCV20) [code = 65+ PNEUMOCOCCAL VACCINE (4 - PPSV23 if available, else PCV20)] Future Scheduled 2022-04-30 INFLUENZA VACCINE [facility] Test 01:07:32 [code = INFLUENZA VACCINE] Future Scheduled 2022-04-30 SHINGLES VACCINES (1 Met [facility] Test 01:07:32 of 2) [code = SHINGLES VACCINES (1 of 2)] Future Scheduled 2022-04-30 BREAST CANCER [facility] Test 01:07:32 SCREENING [code = BREAST CANCER SCREENING] Future Scheduled 2022-04-30 COLONOSCOPY SCREENING [facility] Test 01:07:32 [code = COLONOSCOPY SCREENING] Future Scheduled 2022-04-30 HEPATITIS B VACCINES Met [facility] Test 01:07:32 (1 of 3 - Risk 3-dose series) [code = HEPATITIS B VACCINES (1 of 3 - Risk 3-dose series)] Future Scheduled 2022-04-30 COVID-19 VACCINE (3 - [facility] Test 01:07:32 Booster for Pfizer series) [code = COVID-19 VACCINE (3 - Booster for Pfizer series)] Future Scheduled 2022-04-30 65+ P[facility]UMOCOCCAL [facility] Test 01:07:32 VACCINE (4 - PPSV23 if available, else PCV20) [code = 65+ PNEUMOCOCCAL VACCINE (4 - PPSV23 if available, else PCV20)] Future Scheduled 2022-04-30 INFLUENZA VACCINE Method [facility] Test 01:07:32 [code = INFLUENZA VACCINE] Future Scheduled 2022-04-25 SHINGLES VACCINES (1 Met [facility] Test 01:45:02 of 2) [code = SHINGLES VACCINES (1 of 2)] Future Scheduled 2022-04-25 BREAST CANCER [facility] Test 01:45:02 SCREENING [code = BREAST CANCER SCREENING] Future Scheduled 2022-04-25 COLONOSCOPY SCREENING [facility] Test 01:45:02 [code = COLONOSCOPY SCREENING] Future Scheduled 2022-04-25 HEPATITIS B VACCINES Met [facility] Test 01:45:02 (1 of 3 - Risk 3-dose series) [code = HEPATITIS B VACCINES (1 of 3 - Risk 3-dose series)] Future Scheduled 2022-04-25 COVID-19 VACCINE (3 - [facility] Test 01:45:02 Booster for Pfizer series) [code = COVID-19 VACCINE (3 - Booster for Pfizer series)] Future Scheduled 2022-04-25 65+ P[facility]OCOCCAL [facility] Test 01:45:02 VACCINE (4 - PPSV23 if available, else PCV20) [code = 65+ PNEUMOCOCCAL VACCINE (4 - PPSV23 if available, else PCV20)] Future Scheduled 2022-04-25 INFLUENZA VACCINE [facility] Test 01:45:02 [code = INFLUENZA VACCINE] Future Scheduled 2022-03-25 SHINGLES VACCINES (1 Met [facility] Test 14:48:42 of 2) [code = SHINGLES VACCINES (1 of 2)] Future Scheduled 2022-03-25 BREAST CANCER [facility] Test 14:48:42 SCREENING [code = BREAST CANCER SCREENING] Future Scheduled 2022-03-25 COLONOSCOPY SCREENING [facility] Test 14:48:42 [code = COLONOSCOPY SCREENING] Future Scheduled 2022-03-25 HEPATITIS B VACCINES Met [facility] Test 14:48:42 (1 of 3 - Risk 3-dose series) [code = HEPATITIS B VACCINES (1 of 3 - Risk 3-dose series)] Future Scheduled 2022-03-25 COVID-19 VACCINE (3 - Me [facility] Test 14:48:42 Booster for Pfizer series) [code = COVID-19 VACCINE (3 - Booster for Pfizer series)] Future Scheduled 2022-03-25 65+ P[facility]OCOCCAL [facility] Test 14:48:42 VACCINE (4 - PPSV23 if available, else PCV20) [code = 65+ PNEUMOCOCCAL VACCINE (4 - PPSV23 if available, else PCV20)] Future Scheduled 2022-03-25 INFLUENZA VACCINE [facility] Test 14:48:42 [code = INFLUENZA VACCINE] Future Scheduled 2022-03-25 SHINGLES VACCINES (1 Met [facility] Test 14:48:42 of 2) [code = SHINGLES VACCINES (1 of 2)] Future Scheduled 2022-03-25 BREAST CANCER [facility] Test 14:48:42 SCREENING [code = BREAST CANCER SCREENING] Future Scheduled 2022-03-25 COLONOSCOPY SCREENING [facility] Test 14:48:42 [code = COLONOSCOPY SCREENING] Future Scheduled 2022-03-25 HEPATITIS B VACCINES Met [facility] Test 14:48:42 (1 of 3 - Risk 3-dose series) [code = HEPATITIS B VACCINES (1 of 3 - Risk 3-dose series)] Future Scheduled 2022-03-25 COVID-19 VACCINE (3 - Me [facility] Test 14:48:42 Booster for Pfizer series) [code = COVID-19 VACCINE (3 - Booster for Pfizer series)] Future Scheduled 2022-03-25 65+ P[facility]UMOCOCCAL [facility] Test 14:48:42 VACCINE (4 - PPSV23 if available, else PCV20) [code = 65+ PNEUMOCOCCAL VACCINE (4 - PPSV23 if available, else PCV20)] Future Scheduled 2022-03-25 INFLUENZA VACCINE [facility] Test 14:48:42 [code = INFLUENZA VACCINE] Future Scheduled 2022-03-25 SHINGLES VACCINES (1 Met [facility] Test 14:48:42 of 2) [code = SHINGLES VACCINES (1 of 2)] Future Scheduled 2022-03-25 BREAST CANCER [facility] Test 14:48:42 SCREENING [code = BREAST CANCER SCREENING] Future Scheduled 2022-03-25 COLONOSCOPY SCREENING [facility] Test 14:48:42 [code = COLONOSCOPY SCREENING] Future Scheduled 2022-03-25 HEPATITIS B VACCINES Met [facility] Test 14:48:42 (1 of 3 - Risk 3-dose series) [code = HEPATITIS B VACCINES (1 of 3 - Risk 3-dose series)] Future Scheduled 2022-03-25 COVID-19 VACCINE (3 - [facility] Test 14:48:42 Booster for Pfizer series) [...] 2022-03-25 SHINGLES VACCINES (1 Met [facility] Test 14:48:42 of 2) [code = SHINGLES VACCINES (1 of 2)] Future Scheduled 2022-03-25 BREAST CANCER [facility] Test 14:48:42 SCREENING [code = BREAST CANCER SCREENING] Future Scheduled 2022-03-25 COLONOSCOPY SCREENING Me [facility] Test 14:48:42 [code = COLONOSCOPY SCREENING] Future Scheduled 2022-03-25 HEPATITIS B VACCINES Met [facility] Test 14:48:42 (1 of 3 - Risk 3-dose series) [code = HEPATITIS B VACCINES (1 of 3 - Risk 3-dose series)] Future Scheduled 2022-03-25 COVID-19 VACCINE (3 - Me [facility] Test 14:48:42 Booster for [...] 2022-03-25 SHINGLES VACCINES (1 Met [facility] Test 14:48:42 of 2) [code = SHINGLES VACCINES (1 of 2)] Future Scheduled 2022-03-25 BREAST CANCER [facility] Test 14:48:42 SCREENING [code = BREAST CANCER SCREENING] Future Scheduled 2022-03-25 COLONOSCOPY SCREENING [facility] Test 14:48:42 [code = COLONOSCOPY SCREENING] Future Scheduled 2022-03-25 HEPATITIS B VACCINES Met [facility] Test 14:48:42 (1 of 3 - Risk 3-dose series) [code = HEPATITIS B VACCINES (1 of 3 - Risk 3-dose series)] Future Scheduled 2022-03-25 COVID-19 VACCINE (3 - Me [facility] Test 14:48:42 Booster for [...] 2022-03-25 SHINGLES VACCINES (1 Met [facility] Test 14:48:42 of 2) [code = SHINGLES VACCINES (1 of 2)] Future Scheduled 2022-03-25 BREAST CANCER [facility] Test 14:48:42 SCREENING [code = BREAST CANCER SCREENING] Future Scheduled 2022-03-25 COLONOSCOPY SCREENING [facility] Test 14:48:42 [code = COLONOSCOPY SCREENING] Future Scheduled 2022-03-25 HEPATITIS B VACCINES Met [facility] Test 14:48:42 (1 of 3 - Risk 3-dose series) [code = HEPATITIS B VACCINES (1 of 3 - Risk 3-dose series)] Future Scheduled 2022-03-25 COVID-19 VACCINE (3 - [facility] Test 14:48:42 Booster for Pfizer series) [code = COVID-19 VACCINE (3 - Booster for Pfizer series)] Future Scheduled 2022-03-25 65+ P[facility]UMOCOCCAL [facility] Test 14:48:42 VACCINE (4 - PPSV23 if available, else PCV20) [code = 65+ PNEUMOCOCCAL VACCINE (4 - PPSV23 if available, else PCV20)] Future Scheduled 2022-03-25 INFLUENZA VACCINE [facility] Test 14:48:42 [code = INFLUENZA VACCINE] Future Scheduled 2022-03-25 SHINGLES VACCINES (1 Met [facility] Test 14:48:42 of 2) [code = SHINGLES VACCINES (1 of 2)] Future Scheduled 2022-03-25 BREAST CANCER [facility] Test 14:48:42 SCREENING [code = BREAST CANCER SCREENING] Future Scheduled 2022-03-25 COLONOSCOPY SCREENING [facility] Test 14:48:42 [code = COLONOSCOPY SCREENING] Future Scheduled 2022-03-25 HEPATITIS B VACCINES Met [facility] Test 14:48:42 (1 of 3 - Risk 3-dose series) [code = HEPATITIS B VACCINES (1 of 3 - Risk 3-dose series)] Future Scheduled 2022-03-25 COVID-19 VACCINE (3 - [facility] Test 14:48:42 Booster for Pfizer series) [...] 2022-03-25 SHINGLES VACCINES (1 Met [facility] Test 14:48:42 of 2) [code = SHINGLES VACCINES (1 of 2)] Future Scheduled 2022-03-25 BREAST CANCER [facility] Test 14:48:42 SCREENING [code = BREAST CANCER SCREENING] Future Scheduled 2022-03-25 COLONOSCOPY SCREENING [facility] Test 14:48:42 [code = COLONOSCOPY SCREENING] Future Scheduled 2022-03-25 HEPATITIS B VACCINES Met [facility] Test 14:48:42 (1 of 3 - Risk [...] 2022-03-25 SHINGLES VACCINES (1 Met [facility] Test 14:48:42 of 2) [code = SHINGLES VACCINES (1 of 2)] Future Scheduled 2022-03-25 BREAST CANCER [facility] Test 14:48:42 SCREENING [code = BREAST CANCER SCREENING] Future Scheduled 2022-03-25 COLONOSCOPY SCREENING [facility] Test 14:48:42 [code = COLONOSCOPY SCREENING] Future Scheduled 2022-03-25 HEPATITIS B VACCINES Met [facility] Test 14:48:42 (1 of 3 - Risk 3-dose series) [code = HEPATITIS B VACCINES (1 of 3 - Risk 3-dose series)] Future Scheduled 2022-03-25 COVID-19 VACCINE (3 - Me [facility] Test 14:48:42 Booster for Pfizer series) [code = COVID-19 VACCINE (3 - Booster for Pfizer series)] Future Scheduled 2022-03-25 65+ P[facility]UMOCOCCAL [facility] Test 14:48:42 VACCINE (4 - PPSV23 if available, else PCV20) [code = 65+ PNEUMOCOCCAL VACCINE (4 - PPSV23 if available, else PCV20)] Future Scheduled 2022-03-25 INFLUENZA VACCINE Method [facility] Test 14:48:42 [code = INFLUENZA VACCINE] Future Scheduled 2022-03-04 SHINGLES VACCINES (1 Met [facility] Test 14:03:57 of 2) [code = SHINGLES VACCINES (1 of 2)] Future Scheduled 2022-03-04 BREAST CANCER [facility] Test 14:03:57 SCREENING [code = BREAST CANCER SCREENING] Future Scheduled 2022-03-04 COLONOSCOPY SCREENING [facility] Test 14:03:57 [code = COLONOSCOPY SCREENING] Future Scheduled 2022-03-04 HEPATITIS B VACCINES Met [facility] Test 14:03:57 (1 of 3 - Risk 3-dose series) [code = HEPATITIS B VACCINES (1 of 3 - Risk 3-dose series)] Future Scheduled 2022-03-04 COVID-19 VACCINE (3 - [facility] Test 14:03:57 Booster for Pfizer series) [code = COVID-19 VACCINE (3 - Booster for Pfizer series)] Future Scheduled 2022-03-04 65+ P[facility]UMOCOCCAL [facility] Test 14:03:57 VACCINE (4 - PPSV23 if available, else PCV20) [code = 65+ PNEUMOCOCCAL VACCINE (4 - PPSV23 if available, else PCV20)] Future Scheduled 2022-03-04 INFLUENZA VACCINE Method [facility] Test 14:03:57 [code = INFLUENZA VACCINE] Future Scheduled 2022-03-04 SHINGLES VACCINES (1 Met [facility] Test 14:03:57 of 2) [code = SHINGLES VACCINES (1 of 2)] Future Scheduled 2022-03-04 BREAST CANCER [facility] Test 14:03:57 SCREENING [code = BREAST CANCER SCREENING] Future Scheduled 2022-03-04 COLONOSCOPY SCREENING [facility] Test 14:03:57 [code = COLONOSCOPY SCREENING] Future Scheduled 2022-03-04 HEPATITIS B VACCINES Met [facility] Test 14:03:57 (1 of 3 - Risk 3-dose series) [code = HEPATITIS B VACCINES (1 of 3 - Risk 3-dose series)] Future Scheduled 2022-03-04 COVID-19 VACCINE (3 - Me [facility] Test 14:03:57 Booster for Pfizer series) [code = COVID-19 VACCINE (3 - Booster for Pfizer series)] Future Scheduled 2022-03-04 65+ P[facility]UMOCOCCAL [facility] Test 14:03:57 VACCINE (4 - PPSV23 if available, else PCV20) [code = 65+ PNEUMOCOCCAL VACCINE (4 - PPSV23 if available, else PCV20)] Future Scheduled 2022-03-04 INFLUENZA VACCINE [facility] Test 14:03:57 [code = INFLUENZA VACCINE] Future Scheduled 2022-03-04 SHINGLES VACCINES (1 Met [facility] Test 14:03:57 of 2) [code = SHINGLES VACCINES (1 of 2)] Future Scheduled 2022-03-04 BREAST CANCER [facility] Test 14:03:57 SCREENING [code = BREAST CANCER SCREENING] Future Scheduled 2022-03-04 COLONOSCOPY SCREENING [facility] Test 14:03:57 [code = COLONOSCOPY SCREENING] Future Scheduled 2022-03-04 HEPATITIS B VACCINES Met [facility] Test 14:03:57 (1 of 3 - Risk 3-dose series) [code = HEPATITIS B VACCINES (1 of 3 - Risk 3-dose series)] Future Scheduled 2022-03-04 COVID-19 VACCINE (3 - [facility] Test 14:03:57 Booster for Pfizer series) [code = COVID-19 VACCINE (3 - Booster for Pfizer series)] Future Scheduled 2022-03-04 65+ [facility] Test 14:03:57 VACCINE (4 - PPSV23 if available, else PCV20) [code = 65+ PNEUMOCOCCAL VACCINE (4 - PPSV23 if available, else PCV20)] Future Scheduled 2022-03-04 INFLUENZA VACCINE Method [facility] Test 14:03:57 [code = INFLUENZA VACCINE] Future Scheduled 2022-03-04 SHINGLES VACCINES (1 Met [facility] Test 14:03:57 of 2) [code = SHINGLES VACCINES (1 of 2)] Future Scheduled 2022-03-04 BREAST CANCER [facility] Test 14:03:57 SCREENING [code = BREAST CANCER SCREENING] Future Scheduled 2022-03-04 COLONOSCOPY SCREENING [facility] Test 14:03:57 [code = COLONOSCOPY SCREENING] Future Scheduled 2022-03-04 HEPATITIS B VACCINES Met [facility] Test 14:03:57 (1 of 3 - Risk 3-dose series) [code = HEPATITIS B VACCINES (1 of 3 - Risk 3-dose series)] Future Scheduled 2022-03-04 COVID-19 VACCINE (3 - Me [facility] Test 14:03:57 Booster for Pfizer series) [code = COVID-19 VACCINE (3 - Booster for Pfizer series)] Future Scheduled 2022-03-04 65+ [facility]AL [facility] Test 14:03:57 VACCINE (4 - PPSV23 if available, else PCV20) [code = 65+ PNEUMOCOCCAL VACCINE (4 - PPSV23 if available, else PCV20)] Future Scheduled 2022-03-04 INFLUENZA VACCINE Method [facility] Test 14:03:57 [code = INFLUENZA VACCINE] Future Scheduled 2022-02-11 SHINGLES VACCINES (1 Met [facility] Test 13:39:12 of 2) [code = SHINGLES VACCINES (1 of 2)] Future Scheduled 2022-02-11 BREAST CANCER [facility] Test 13:39:12 SCREENING [code = BREAST CANCER SCREENING] Future Scheduled 2022-02-11 COLONOSCOPY SCREENING [facility] Test 13:39:12 [code = COLONOSCOPY SCREENING] Future Scheduled 2022-02-11 HEPATITIS B VACCINES Met [facility] [place] [facility] Test 13:39:12 (1 of 3 - Risk 3-dose series) [code = HEPATITIS B VACCINES (1 of 3 - Risk 3-dose series)] Future Scheduled 2022-02-11 COVID-19 VACCINE (3 - [facility] Test 13:39:12 Booster for Pfizer series) [code = COVID-19 VACCINE (3 - Booster for Pfizer series)] Future Scheduled 2022-02-11 65+ [facility] Test 13:39:12 VACCINE (4 - PPSV23 or PCV20) [code = 65+ PNEUMOCOCCAL VACCINE (4 - PPSV23 or PCV20)] Future Scheduled 2022-02-11 INFLUENZA VACCINE Method [facility] Test 13:39:12 [code = INFLUENZA VACCINE] Future Scheduled 2022-01-29 SHINGLES VACCINES (1 Met [facility] Test 14:07:20 of 2) [code = SHINGLES VACCINES (1 of 2)] Future Scheduled 2022-01-29 BREAST CANCER [facility] Test 14:07:20 SCREENING [code = BREAST CANCER SCREENING] Future Scheduled 2022-01-29 COLONOSCOPY SCREENING [facility] Test 14:07:20 [code = COLONOSCOPY SCREENING] Future Scheduled 2022-01-29 HEPATITIS B VACCINES Met [facility] Test 14:07:20 (1 of 3 - Risk 3-dose series) [code = HEPATITIS B VACCINES (1 of 3 - Risk 3-dose series)] Future Scheduled 2022-01-29 COVID-19 VACCINE (3 - Me [facility] Test 14:07:20 Booster for Pfizer series) [code = COVID-19 VACCINE (3 - Booster for Pfizer series)] Future Scheduled 2022-01-29 65+ P[facility]CCAL [facility] Test 14:07:20 VACCINE (4 - PPSV23 or PCV20) [code = 65+ PNEUMOCOCCAL VACCINE (4 - PPSV23 or PCV20)] Future Scheduled 2022-01-29 INFLUENZA VACCINE Method [facility] Test 14:07:20 [code = INFLUENZA VACCINE] Future Scheduled 2022-01-29 SHINGLES VACCINES (1 Met [facility] Test 14:07:20 of 2) [code = SHINGLES VACCINES (1 of 2)] Future Scheduled 2022-01-29 BREAST CANCER [facility] Test 14:07:20 SCREENING [code = BREAST CANCER SCREENING] Future Scheduled 2022-01-29 COLONOSCOPY SCREENING [facility] Test 14:07:20 [code = COLONOSCOPY SCREENING] Future Scheduled 2022-01-29 HEPATITIS B VACCINES Met [facility] Test 14:07:20 (1 of 3 - Risk 3-dose series) [code = HEPATITIS B VACCINES (1 of 3 - Risk 3-dose series)] Future Scheduled 2022-01-29 COVID-19 VACCINE (3 - [facility] Test 14:07:20 Booster for Pfizer series) [code = COVID-19 VACCINE (3 - Booster for Pfizer series)] Future Scheduled 2022-01-29 65+ [facility] Test 14:07:20 VACCINE (4 - PPSV23 or PCV20) [code = 65+ PNEUMOCOCCAL VACCINE (4 - PPSV23 or PCV20)] Future Scheduled 2022-01-29 INFLUENZA VACCINE Method [facility] Test 14:07:20 [code = INFLUENZA VACCINE] Future Scheduled 2022-01-29 SHINGLES VACCINES (1 Met [facility] Test 14:07:20 of 2) [code = SHINGLES VACCINES (1 of 2)] Future Scheduled 2022-01-29 BREAST CANCER [facility] Test 14:07:20 SCREENING [code = BREAST CANCER SCREENING] Future Scheduled 2022-01-29 COLONOSCOPY SCREENING [facility] Test 14:07:20 [code = COLONOSCOPY SCREENING] Future Scheduled 2022-01-29 HEPATITIS B VACCINES Met [facility] Test 14:07:20 (1 of 3 - Risk 3-dose series) [code = HEPATITIS B VACCINES (1 of 3 - Risk 3-dose series)] Future Scheduled 2022-01-29 COVID-19 VACCINE (3 - [facility] Test 14:07:20 Booster for Pfizer series) [code = COVID-19 VACCINE (3 - Booster for Pfizer series)] Future Scheduled 2022-01-29 65+ PNEUMOCOCCAL [facility] Test 14:07:20 VACCINE (4 - PPSV23 or PCV20) [code = 65+ PNEUMOCOCCAL VACCINE (4 - PPSV23 or PCV20)] Future Scheduled 2022-01-29 INFLUENZA VACCINE [facility] Test 14:07:20 [code = INFLUENZA VACCINE] Future Scheduled 2022-01-29 SHINGLES VACCINES (1 Met [facility] Test 14:07:20 of 2) [code = SHINGLES VACCINES (1 of 2)] Future Scheduled 2022-01-29 BREAST CANCER [facility] Test 14:07:20 SCREENING [code = BREAST CANCER SCREENING] Future Scheduled 2022-01-29 COLONOSCOPY SCREENING [facility] Test 14:07:20 [code = COLONOSCOPY SCREENING] Future Scheduled 2022-01-29 HEPATITIS B VACCINES Met [facility] Test 14:07:20 (1 of 3 - Risk 3-dose series) [code = HEPATITIS B VACCINES (1 of 3 - Risk 3-dose series)] Future Scheduled 2022-01-29 COVID-19 VACCINE (3 - [facility] Test 14:07:20 Booster for Pfizer series) [code = COVID-19 VACCINE (3 - Booster for Pfizer series)] Future Scheduled 2022-01-29 65+ PNEUMOCOCCAL [facility] Test 14:07:20 VACCINE (4 - PPSV23 or PCV20) [code = 65+ PNEUMOCOCCAL VACCINE (4 - PPSV23 or PCV20)] Future Scheduled 2022-01-29 INFLUENZA VACCINE Method [facility] Test 14:07:20 [code = INFLUENZA VACCINE] Future Scheduled 2022-01-20 SHINGLES VACCINES (1 Met [facility] Test 06:12:34 of 2) [code = SHINGLES VACCINES (1 of 2)] Future Scheduled 2022-01-20 Screening for [facility] Test 06:12:34 malignant neoplasm of cervix (procedure) [code = [id number]] Future Scheduled 2022-01-20 BREAST CANCER [facility] Test 06:12:34 SCREENING [code = BREAST CANCER SCREENING] Future Scheduled 2022-01-20 COLONOSCOPY SCREENING [facility] Test 06:12:34 [code = COLONOSCOPY SCREENING] Future Scheduled 2022-01-20 HEPATITIS B VACCINES Met [facility] Test 06:12:34 (1 of 3 - Risk 3-dose series) [code = HEPATITIS B VACCINES (1 of 3 - Risk 3-dose series)] Future Scheduled 2022-01-20 COVID-19 VACCINE (3 - [facility] Test 06:12:34 Booster for Pfizer series) [code = COVID-19 VACCINE (3 - Booster for Pfizer series)] Future Scheduled 2022-01-20 65+ [facility] Test 06:12:34 VACCINE (4 - PPSV23 or PCV20) [code = 65+ PNEUMOCOCCAL VACCINE (4 - PPSV23 or PCV20)] Future Scheduled 2022-01-20 INFLUENZA VACCINE Method [facility] Test 06:12:34 [code = INFLUENZA VACCINE] Future Scheduled 2022-01-16 SHINGLES VACCINES (1 Met [facility] Test 12:09:25 of 2) [code = SHINGLES VACCINES (1 of 2)] Future Scheduled 2022-01-16 Screening for [facility] Test 12:09:25 malignant neoplasm of cervix (procedure) [code = [id number]] Future Scheduled 2022-01-16 BREAST CANCER [facility] Test 12:09:25 SCREENING [code = BREAST CANCER SCREENING] Future Scheduled 2022-01-16 COLONOSCOPY SCREENING [facility] Test 12:09:25 [code = COLONOSCOPY SCREENING] Future Scheduled 2022-01-16 HEPATITIS B VACCINES Met [facility] Test 12:09:25 (1 of 3 - Risk 3-dose series) [code = HEPATITIS B VACCINES (1 of 3 - Risk 3-dose series)] Future Scheduled 2022-01-16 COVID-19 VACCINE (3 - [facility] Test 12:09:25 Booster for Pfizer series) [code = COVID-19 VACCINE (3 - Booster for Pfizer series)] Future Scheduled 2022-01-16 65+ PNEUMOCOCCAL [facility] Test 12:09:25 VACCINE (4 - PPSV23 or PCV20) [code = 65+ PNEUMOCOCCAL VACCINE (4 - PPSV23 or PCV20)] Future Scheduled 2022-01-16 INFLUENZA VACCINE Method [facility] Test 12:09:25 [code = INFLUENZA VACCINE] Future Scheduled 2022-01-14 SHINGLES VACCINES (1 Met [facility] Test 04:11:46 of 2) [code = SHINGLES VACCINES (1 of 2)] Future Scheduled 2022-01-14 Screening for [facility] Test 04:11:46 malignant neoplasm of cervix (procedure) [code = [id number]] Future Scheduled 2022-01-14 BREAST CANCER [facility] Test 04:11:46 SCREENING [code = BREAST CANCER SCREENING] Future Scheduled 2022-01-14 COLONOSCOPY SCREENING [facility] Test 04:11:46 [code = COLONOSCOPY SCREENING] Future Scheduled 2022-01-14 HEPATITIS B VACCINES Met [facility] Test 04:11:46 (1 of 3 - Risk 3-dose series) [code = HEPATITIS B VACCINES (1 of 3 - Risk 3-dose series)] Future Scheduled 2022-01-14 COVID-19 VACCINE (3 - [facility] Test 04:11:46 Booster for Pfizer series) [code = COVID-19 VACCINE (3 - Booster for Pfizer series)] Future Scheduled 2022-01-14 65+ PNEUMOCOCCAL [facility] Test 04:11:46 VACCINE (4 - PPSV23 or PCV20) [code = 65+ PNEUMOCOCCAL VACCINE (4 - PPSV23 or PCV20)] Future Scheduled 2022-01-14 INFLUENZA VACCINE Method [facility] Test 04:11:46 [code = INFLUENZA VACCINE] Future Scheduled 2021-08-26 Screening for [facility] Test 13:02:23 malignant neoplasm of cervix (procedure) [code = [id number]] Future Scheduled 2021-08-26 BREAST CANCER [facility] Test 13:02:23 SCREENING [code = BREAST CANCER SCREENING] Future Scheduled 2021-08-26 COLONOSCOPY SCREENING [facility] Test 13:02:23 [code = COLONOSCOPY SCREENING] Future Scheduled 2021-08-26 Screening for [facility] Test 13:02:23 malignant neoplasm of lung (procedure) [code = [id number]] Future Scheduled 2021-08-26 SHINGLES VACCINES (#1) M [facility] Test 13:02:23 [code = SHINGLES VACCINES (#1)] Future Scheduled 2021-08-26 COVID-19 VACCINE (3 - [facility] Test 13:02:23 Pfizer risk 4-dose series) [...] Facility Department ID 2022-02-18 Outpatient CHW W [id number] [place] 14:30:[address] [place] [address] 2021-07-14 Outpatient SADIKOVIC, [facility] [id number] [place] 09:33:51 [facility] 2021-06-02 Outpatient HEMATPOUR, [facility] [id number] [place] 13:58:59 [facility] 2021-04-28 Outpatient HEMATPOUR, [facility] [id number] [place] 11:21:22 [facility] 2021-03-20 Emergency [facility] [id number] Univers [facility] HEMATPOUR, [facility] [id number] [place] 08:16:46 [facility] 2020-10-31 Outpatient HEMATPOUR, [facility] [id number] [place] 09:44:50 [facility] 2020-09-30 Outpatient HEMATPOUR, [facility] [id number] [place] 13:16:03 [facility]alt [facility] 2022-11-26 2022-11-26 Outpatient R [facility] [id number] Univers 08:30:00 08:30:00 ity [facility] 2022-11-15 2022-11-15 Outpatient R [facility] [id number] Univers 08:30:00 08:30:00 [facility] 2022-11-02 2022-11-02 Outpatient R [facility] [id number] Univers 08:30:00 08:30:00 SANTIAGO [facility] 2022-10-27 2022-10-27 Telephone [facility] 1.2.840.114 [id number] Univers 00:00:00 00:00:00 [facility] 350.1.13.10 i ty [id number] 7840[address] [place] 2022-10-06 2022-10-06 Outpatient R [facility] [id number] Univers 09:30:00 09:30:00 SANT[facility]AGO [facility] 2022-09-26 2022-09-26 [facility] 1.2.105.083 [id number] Univers 00:00:00 00:00:00 [facility] 350.1.13.10 i [id number] 784079 [place] 2022-09-03 2022-09-03 Outpatient R [facility] [id number] Univers 11:00:00 11:00:00 SANTIAGO [facility] 2022-08-24 2022-08-24 [facility] 1.2.840.0 [id number] Univers 00:00:00 00:00:00 [place] 96865.1.1 ity of 3.104.2.7 [place] .3.362109 Medica l .8 [place] 2022-05-20 2022-05-20 Telephone [facility] 1.2.840.114 [id number] Univers 00:00:00 00:00:00 [facility] 350.1.13.10 i [place] [id number] [address] 2022-05-10 2022-05-10 [facility] [id number] Univers 10:30:00 16:31:00 HOME ity [facility] 2022-05-10 2022-05-10 Emergency [place], TRAUMA 1.2.840.114 [id number] Univers 10:30:00 16:31:00 [facility] 350.1.13.10 [place] [id number] [facility] 014 [place] 2022-05-10 2022-05-10 Telephone [facility], [facility] 1.2.840.114 [id number] Univers 00:00:00 00:00:00 [facility] 350.1.13.10 i [place] [id number] [address] 2022-05-08 2022-05-08 Emergency [facility] [id number] Univers 16:18:00 18:42:00 THERESA [facility] 2022-05-08 2022-05-08 [facility] 1.2.840.114 [id number] Univers 16:18:00 18:42:00 Theresa BULLOCK 350.1.13.10 ity [facility] [place] [id number] [address] 2022-05-07 2022-05-07 Telephone [facility] 1.2.840.114 [id number] Univers 00:00:00 00:00:00 [facility] 350.1.13.10 i [place] [id number] [address] 2022-05-06 2022-05-06 Emergency [facility] [id number] Univers 14:13:00 18:19:00 ANETTE [facility] 2022-05-06 2022-05-06 [facility] 1.2.289.234 [id number] Univers 14:13:00 18:19:00 Anette BULLOCK 350.1.13.10 ity [place] [id number] [address] 2022-05-06 2022-05-06 Telephone JOSÉ ANTONIO Cardenas 1.2.840.114 [id number] Univers 00:00:00 00:00:00 [facility] 350.1.13.10 i [place] [id number] [address] 2022-04-22 2022-04-22 Emergency X [facility] ERT [id number] Univers 13:55:00 17:00:00 PAULETTE ity of [facility] 2022-04-22 2022-04-22 [facility] [id number] [id number] Univers 13:55:00 17:00:00 Paulette S [place] 350.1.13.10 i ty of [place] 4.2.7.2.686 [facility] [id number] [address] 2022-04-07 2022-04-07 Outpatient R [facility], [facility] [id number] Univers 20:40:00 20:40:00 ATTENDING ity of [facility] 2022-04-07 2022-04-07 Telephone Devin, 1.2.840.5 [id number] Univers 00:00:00 00:00:00 Robbi R 85679.1.1 i ty of 3.104.2.7 [place] .3.195665 Medica l .8 [place] 2022-03-05 2022-03-05 Section Beamer Santiago Cardenas 1.2.840.1 [id number] Univers 13:45:00 14:00:00 Visit [facility] 35082.1.1 ity of 3.104.2.7 [place] .3.483155 Medica l .8 [place] 2022-03-05 2022-03-05 Office JOSÉ ANTONIO Cardenas 1.2.156.594 [id number] Univers 13:00:00 13:30:00 Visit [facility] 350.1.13.10 i ty [place] [id number] [facility] 089 [place] 2022-03-05 2022-03-05 Outpatient R [facility] [id number] Univers 13:00:00 13:00:00 [facility] 2022-02-26 2022-02-26 Outpatient R [facility] [id number] Univers 08:30:00 08:30:00 [facility] 2022-02-26 2022-02-26 Outpatient R [facility] [id number] Univers 08:30:00 08:30:00 [facility] 2022-02-17 2022-02-17 Transition Stevo, 1.2.840.4 [id number] Univers 00:00:00 00:00:00 of Care Isaias Maria Elena 58497.1.1 it y of 3.104.2.7 [place] .3.852847 Medica l .8 [place] 2022-02-10 2022-02-16 Inpatient X FRANK [facility] [id number] Univers 22:59:00 19:27:00 TOMY [facility] 2022-02-10 2022-02-16 Hospital Reilly Means 1.2.840.1 [id number] Univers 22:59:00 19:27:00 Encounter Ofe Shields 47476.1.1 ity of [place] 3.104.2.7 [place] .3.540386 Medica [place] .8 [place] 2022-02-11 2022-02-11 Telephone Ronald, 1.2.840.4 [id number] Univers 00:00:00 00:00:00 [place] 81674.1.1 ity of 3.104.2.7 [place] .3.023288 Medica l .8 [place] 2022-02-10 2022-02-10 Travel 1.2.840.1 1.2.993.587 [id number] Univers 00:00:00 00:00:00 23863.1.1 350.1.13.10 ity of 3.104.2.7 4.2.7.3.698 [place] .3.988739 084.8 Medica l .8 [place] 2022-01-30 2022-01-30 Telephone [place], 1.2.840.3 [id number] Univers 00:00:00 00:00:00 [place] 75167.1.1 ity of 3.104.2.7 [place] .3.209093 Medica l .8 [place] 2022-01-06 2022-01-06 Orders Doctor FERMIN 1.2.840.114 [id number] Univers 00:00:00 00:00:00 Only Unassigned, JACKELINE 350.1.13.10 ity of [facility] 4.2.7.2.686 Yomi as [id number] [facility] 009 [place] 2021-12-25 2021-12-25 Orders Doctor FERMIN 1.2.840.114 [id number] Univers 00:00:00 00:00:00 Only Unassigned, JACKELINE 350.1.13.10 ity of [facility] 4.2.7.2.686 Yomi as [id number] [facility] 009 [place] 2021-12-12 2021-12-13 Emergency X Bill COLES [facility] ERT [id number] Univers 23:53:00 01:52:00 ity of [facility] 2021-12-12 2021-12-13 Emergency Bill Coles [facility] 1.2.840.114 [id number] Univers 23:53:00 01:52:00 Kiersten BULLOCK 350.1.13.10 i ty of [place]2.[place] [id number] [facility] 084 [place] 2021-11-20 2021-11-20 Section [facility]ERS[facility] 1.2.840.114 [id number] Univers 09:45:00 10:00:00 Visit Ronald [facility] 350.1.13.10 ity of [place] [id number] [facility] [address] 2021-11-20 2021-11-20 Office [facility] 1.2.226.374 [id number] Univers 08:30:00 09:00:00 Visit [facility] 350.1.13.10 ty New [facility] 4.2.7.2.686 [facility] [id number] [place] 784079 [place] 2021-11-20 2021-11-20 Outpatient R [facility] [id number] Univers 08:30:00 08:30:00 [facility] 2021-11-20 2021-11-20 Outpatient R [facility] [id number] Univers 08:30:00 08:30:00 [facility] 2021-11-20 2021-11-20 Outpatient R [facility] [id number] Univers 08:30:00 08:30:00 [facility] 2021-11-20 2021-11-20 Outpatient R [facility] [id number] Univers 08:30:00 08:30:00 [facility] 2021-10-24 2021-10-24 Emergency X [facility] ERT [id number] Univers 16:27:00 22:26:00 [facility] 2021-10-24 2021-10-24 Emergency [facility] [id number] Univers 16:27:00 [facility]:26[facility] 2021-10-24 2021-10-24 Emergency Reilly Means [facility] 1.2.840. 114 [id number] Univers 16:27:00 22:26:00 Charity Mcallister [place] 350.1.13.10 ity [facility] 4.2.7.2.686 [facility] [id number] [address] 2021-10-23 2021-10-24 Emergency [facility] [id number] Univers 20:22:00 02:57:00 [facility] 2021-10-23 2021-10-24 [facility] 1.2.388.762 [id number] Univers 20:22:00 02:57:00 Charity Christian [place] 350.1.13.10 ity [facility] 4.2.7.2.686 [facility] [id number] [facility] 084 [place] 2021-09-07 2021-09-07 Outpatient R SELF, [facility] [id number] Univers 08:00:00 08:00:00 GADIEL rodas [facility] 2021-09-07 2021-09-07 Outpatient R SELF, [facility] [id number] Univers 08:00:00 08:00:00 GADIEL barbosa o f [facility] 2021-08-21 2021-08-21 Outpatient R [facility], [facility] [id number] Univers 10:45:00 10:45:00 SANTIAGO barbosa [facility] 2021-08-21 2021-08-21 Section Beamer [place] Cardenas 1.2.840.1 [id number] Univers 10:45:00 10:45:00 [facility] 57718.1.1 ity of 3.104.2.7 [place] .3.418054 Medica l .8 [place] 2021-08-21 2021-08-21 Office [facility], 1.2.840.6 [id number] Univers 08:30:00 09:00:00 Visit [place] 15471.1.1 ity of 3.104.2.7 [place] .3.612668 Medica l .8 [place] 2021-08-21 2021-08-21 Office [facility], [facility] 1.2.510.486 [id number] Univers 08:30:00 09:00:00 Visit Santiago [facility] 350.1.13.10 i ty of CLINICS 4.2.7.2.686 [facility] [id number] [place] 784079 [place] 2021-08-21 2021-08-21 Outpatient R [facility] [id number] Univers 08:30:00 08:30:00 SANTIAGO barbosa [facility] 2021-08-21 2021-08-21 Travel 1.2.840.1 [id number] Univers 00:00:00 00:00:00 82542.1.1 350.1.13.10 ity of 3.104.2.7 4.[place].3.698 [place] .3.089981 084.8 Medica l .8 Branch 2021-08-14 2021-08-14 Telephone [place], 1.2.840.3 [id number] Univers 00:00:00 00:00:00 [place] 70079.1.1 ity of 3.104.2.7 [place] .3.407368 Medica l .8 Branch 2021-08-13 2021-08-13 Telephone [place], 1.2.840.9 [id number] Univers 00:00:00 00:00:00 [place] 01562.1.1 ity of 3.104.2.7 [place] .3.122210 Medica l .8 [place] 2021-08-11 2021-08-11 Outpatient [facility] [id number] Univers 08:00:00 08:00:00 [facility] 2021-08-05 2021-08-05 Inpatient RAUL Ashely, [facility] [id number] [facility] 05:24:00 05:24:00 Mike 31 [facility] 2021-07-20 2021-07-20 Outpatient [facility] [id number] Univers 10:00:00 10:00:00 [facility] 2021-07-14 2021-07-14 Office KIMBERLEY Lira 6400 1.2.840.114 [id number] [place] 08:45:00 09:34:[address] 350.1.13.58 Health 9.2.7.2.686 [id number] 2021-07-09 2021-07-09 Telephone [place], UTP 6400 1.2.840.114 [id number] [place] 00:00:00 00:00:[address] 350.1.13.58 Health 9.2.7.2.686 [id number] 1 2021-07-09 2021-07-09 Telephone Hematpour, UTP 6400 1.2.840.114 [id number] [place] 00:00:00 00:00:[address] 350.1.13.58 Health 9.2.7.2.686 [id number] 1 2021-07-03 2021-07-03 Outpatient R EAST, [facility] [id number] Univers 08:00:00 08:00:00 SANTIAGO raheemy [facility] 2021-06-17 2021-06-17 Inpatient RAUL Lund, HCACL INTE.02 [id number] HCA 10:56:00 14:36:00 Mike 47 [facility] 2021-06-15 2021-06-15 Outpatient R SELF, [facility] [id number] Univers 10:15:00 11:07:21 GADIEL vogel [facility] 2021-06-15 2021-06-15 Outpatient R SELF, [facility] [id number] Univers 10:15:00 10:15:00 GADIEL barbosa o [facility] 2021-06-15 2021-06-15 Outpatient R SELF, [facility] [id number] Univers 10:15:00 10:15:00 GADIEL vogel [facility] 2021-06-15 2021-06-15 Orders Doctor 1.2.840.0 [id number] 775 Univers 00:00:00 00:00:00 Only Unassigned, 22424.1.1 ity of [place] 3.104.2.7 [place] .3.361042 Medica l .8 [place] 2021-06-15 2021-06-15 Travel 1.2.840.1 1.2.385.673 7711 7719 Univers 00:00:00 00:00:00 86083.1.1 350.1.13.10 ity of 3.104.2.7 4[place].3.698 [place] .3.269604 084.8 Medica l .8 Branch 2021-06-11 2021-06-11 Refill East, UNIVERSIT 1.2.368.945 2682 9185 Univers 00:00:00 00:00:00 Santiago HEALTH 350.1.13.10 i ty of CLINICS 4.2.7.2.686 [place] 678.8431029 Medi porfirio 089 Branch 2021-06-11 2021-06-11 Refill East, 1.2.840.1 [id number] 185 Univers 00:00:00 00:00:00 Santiago 08355.1.1 ity of 3.104.2.7 [place] .3.149846 Medica l .8 [place] 2021-06-05 2021-06-05 [facility] [id number] Univers 09:00:00 09:00:00 SANTIAGO maciely [facility] 2021-06-02 2021-06-02 Telephone East, UNIVERSIT 1.2.840.114 [id number] Univers 00:00:00 00:00:00 Santiago [facility] 350.1.13.10 i [facility] [place].2.[place].2.[place] [id number] [address] 2021-06-02 2021-06-02 Telephone East, 1.2.840.1 [id number] 903 00816 Univers 00:00:00 00:00:00 Santiago 83563.1.1 ity of 3.104.2.7 [place] .3.422930 Medica l .8 Branch 2021-05-29 2021-05-29 Telephone East, 1.2.840.6 [id number] 902 01709 Univers 00:00:00 00:00:00 Santiago 66459.1.1 ity of 3.104.2.7 [place] .3.822930 Medica l .8 Branch 2021-05-29 2021-05-29 Telephone East, 1.2.840.4 [id number] 902 53493 Univers 00:00:00 00:00:00 Santiago 52354.1.1 ity of 3.104.2.7 [place] .3.527240 Medica l .8 [place] 2021-05-25 2021-05-25 Outpatient R RODO, [facility] [id number] Univers 08:00:00 08:00:00 GADIEL rodas [facility] 2021-04-29 2021-04-29 Outpatient R LALA, [facility] [id number] Univers 08:00:00 08:00:00 NIKOLAI barbosa [facility] 2021-04-28 2021-04-28 Telephone Ap, [facility] 6400 1.2.840.114 [id number] [place] 00:00:00 00:00:[address] 350.1.13.58 Health 9.2.7.2.686 [id number] 1 2021-04-28 2021-04-28 Telephone Jailyn, 1.2.840.4 [id number] 21 [id number] Methodi 00:00:00 00:00:[address] 3.430.2.7 Hospit a .3.462496 l .8 2021-03-31 2021-03-31 Orders Carol Ann, 1.2.840.1 [id number] 21 [id number] Methodi 00:00:00 00:00:00 Only Sarai Lieberman 57872.1.1 979 s t 3.430.2.7 Hospit a .3.460305 l .8 2021-03-30 2021-03-30 [facility] [id number] Univers 08:45:00 08:45:00 GADIEL macielcharlie lela f [facility] 2021-03-24 2021-03-24 Telephone Jailyn, 1.2.840.9 [id number] 21 [id number] Methodi 00:00:00 00:00:[address] 3.430.2.7 Hospit a .3.749252 l .8 2021-02-13 2021-02-13 Telephone Ronald, 1.2.840.8 [id number] 876 56691 Univers 00:00:00 00:00:00 [place] 77427.1.1 ity 3.104.2.7 [facility].084381 Medica l [address] 2021-01-28 2021-01-28 [facility] [id number] Univers 08:45:00 09:37:00 NIKOLAI barbosa [facility] 2021-01-28 2021-01-28 Travel 1.2.840.1 1.2.278.025 4149 9777 [facility] 00:00:00 00:00:00 04616.1.1 350.1.13.10 ity of 3.104.2.7 4.[place].7.3.698 [place] .3.393433 084.8 Medica l .8 Branch 2021-01-19 2021-01-19 Telephone Pelletier, 1.2.840.1 [id number] 2100 846328 Methodi 00:00:00 00:00:[address] 3.430.2.7 Hospit a .3.730107 l .8 2021-01-04 2021-01-04 Letter Shelia, 1.2.840.7 [id number] 49619 696 Univers 00:00:00 00:00:00 (Out) Dagoberto H 60476.1.1 ity of 3.104.2.7 [place] .3.756705 Medica l .8 Branch 2021-01-04 2021-01-04 Letter Shelia, 1.2.840.7 [id number] 56541 696 Univers 00:00:00 00:00:00 (Out) Dagoberto H 23512.1.1 ity of 3.104.2.7 [place] .3.549397 Medica l .8 Branch 2021-01-03 2021-01-03 Letter Shelia, 1.2.840.0 [id number] 61472 790 Univers 00:00:00 00:00:00 (Out) Dagoberto H 56495.1.1 ity of 3.104.2.7 [place] .3.288786 Medica l .8 Branch 2021-01-03 2021-01-03 Letter Shelia, 1.2.840.5 [id number] 20643 790 Univers 00:00:00 00:00:00 (Out) Dagoberto H 55871.1.1 ity of 3.104.2.7 [place] .3.771315 Medica l .8 Branch 2021-01-02 2021-01-02 Outpatient R [facility] [id number] 786 Univers 13:40:00 13:40:00 ity of [facility] 2021-01-022021-01-02 Laboratory Cuba Franks 1.2.840.9 761117 3629 [id number] Univers 12:14: 12:57:34 Only Lab, [facility] [place] 79211.1.1 ity of 3.104.2.7 [place] .3.631616 Medica l .8 [place] 2021-01-02 2021-01-02 Laboratory [place] Franks 1.2.840.0 998605 4728 [id number] Univers ::13 12:57:34 Only Lab, [facility] Fam Pob I 71984.1.1 ity of 3.104.2.7 [place] .3.768003 Medica l .8 [place] 2021-01-02 2021-01-02 Travel 1.2.840.1 1.2.476.009 8065 2306 Univers 00:00:00 00:00:00 12041.1.1 350.1.13.10 ity of 3.104.2.7 4.2.7.3.698 [place] .3.992481 084.8 Medica l .8 [place] 2021-01-02 2021-01-02 Letter Doctor 1.2.840.6 [id number] 40280 948 Univers 00:00:00 00:00:00 (Out) Unassigned, 86612.1.1 ity of [place] 3.104.2.7 [place] .3.392832 Medica l .8 [place] 2021-01-02 2021-01-02 Letter Doctor 1.2.840.5 [id number] 23773 946 Univers 00:00:00 00:00:00 (Out) Unassigned, 29659.1.1 ity of [place] 3.104.2.7 [place] .3.048014 Medica l .8 [place] 2021-01-02 2021-01-02 Travel 1.2.840.1 1.2.630.899 2928 2306 Univers 00:00:00 00:00:00 71915.1.1 350.1.13.10 ity of 3.104.2.7 4.[place].7.3.698 [place] .3.236910 084.8 Medica l .8 [place] 2021-01-02 2021-01-02 Letter Doctor 1.2.840.8 [id number] 72342 948 Univers 00:00:00 00:00:00 (Out) Unassigned, 53386.1.1 ity of [place] 3.104.2.7 [place] .3.645402 Medica l .8 [place] 2021-01-02 2021-01-02 Letter Doctor 1.2.840.3 [id number] 95134 946 Univers 00:00:00 00:00:00 (Out) Unassigned, 09516.1.1 ity of [place] 3.104.2.7 [place] .3.636110 Medica l .8 [place] 2020-12-22 2020-12-22 Telephone Beltran, 1.2.840.7 [id number] 862 61222 Univers 00:00:00 00:00:00 Robbi Hairston 93339.1.1 i ty of 3.104.2.7 [place] .3.826683 Medica l .8 Branch 2020-12-22 2020-12-22 Telephone Beltran, 1.2.840.9 [id number] 862 83926 Univers 00:00:00 00:00:00 Eligionda R 76558.1.1 i ty of 3.104.2.7 [place] .3.515368 Medica l .8 [place] 2020-12-12 2020-12-12 Office Hematpour, UTP 6400 1.2.840.114 [id number] [place] 07:42:02 08:18:[address] 350.1.13.58 Health 9.2.7.2.686 122.7849527 1 2020-12-12 2020-12-12 Office Hematpour, UTP 6400 1.2.840.114 12 [id number] 07:42:02 08:18:[address] 350.1.13.58 9.2.7.2.686 621.8891856 1 2020-12-09 2020-12-09 Telephone Meisenbach, 1.2.840.1 [id number] Methodi 00:00:00 00:00:00 Sarai Lieberman 20198.1.1 316 s t 3.430.2.7 Hospit a .3.222675 l .8 2020-12-08 2020-12-08 [facility], 1.2.840.1 [id number] 2100 334993 Methodi 12:35:54 23:59:00 Encounter Ray 96346.1.[address] 3.430.2.7 Hospit a .3.122672 l .8 2020-12-08 2020-12-08 Lab [facility], 1.2.840.1 [id number] 52205 30442 Methodi 17:25:00 17:30:[address] 3.430.2.7 Hospit a .3.475791 l .8 2020-12-08 2020-12-08 [facility], 1.2.840.1 [id number] 46140 01171 Methodi 10:30:00 11:39:56 Visit Ray 70540.1.[address] 3.430.2.7 Hospit a .3.674295 l .8 2020-12-08 2020-12-08 Travel 1.2.840.1 1.2.923.002 5945 345301 Methodi 00:00:00 00:00:[address] 3.430.2.7 0.2.7.3.698 Ho spita .3.533362 084.8 l .8 2020-12-02 2020-12-02 Section [facility] UNIVERSIT 1.2.840.114 8 [id number] 10:20:06 10:36:19 Visit HEALTH 350.1.13.10 CLINICS 4.2.7.2.686 129.3654423 316 2020-12-02 2020-12-02 Section Beamer Santiago Cardenas 1.2.840.1 [id number] [facility] 10:20:06 10:36:19 Visit c-Lab 62407.1.1 ity of 3.104.2.7 [place] .3.014218 Medica l .8 [place] 2020-12-02 2020-12-02 Section Beamer Santiago Cardenas 1.2.840.1 [id number] Univers 10:20:06 10:36:19 [facility] 29345.1.1 ity of 3.104.2.7 [place] .3.016772 Medica l .8 [place] 2020-12-02 2020-12-02 Office Ronald, 1.2.840.1 [id number] 17470 528 Univers 08:31:37 09:01:37 Visit Santiago 94099.1.1 ity of 3.104.2.7 [place] .3.575551 Medica l .8 [place] 2020-12-02 2020-12-02 Outpatient R RONALD [facility] [id number] Univers 09:00:00 09:00:00 SANTIAGO ity [facility] 2020-11-25 2020-11-25 [facility] 1.2.840.114 [id number] 11:06:30 11:58:14 Visit Robbi Hairston [employer] 350.1.13.10 [facility] 4.2.7.2.686 MATERNAL [id number] & CHILD [address] [place] [address] 2020-11-25 2020-11-25 Office Beltran, 1.2.840.9 [id number] 80560 865 Univers 11:06:30 11:58:14 Visit Robbi Hairston 44554.1.1 i ty of 3.104.2.7 [place] .3.957214 Medica l .8 [place] 2020-11-25 2020-11-25 Office Devin, 1.2.840.8 [id number] 21084 865 Univers 11:06:30 11:58:14 Visit Robbi Hairston 30748.1.1 i ty of 3.104.2.7 [place] .3.770785 Medica l .8 [place] 2020-11-25 2020-11-25 Outpatient R [facility] [id number] Univers 11:00:00 11:00:00 ity of [facility] 2020-11-25 2020-11-25 [facility] 1.2.367.378 1703 4592 00:00:00 00:00:00 [facility] 350.1.13.10 [facility] 4.2.7.2.686 [id number] 089 2020-11-25 2020-11-25 [facility] 1.2.081.658 4362 0821 00:00:00 00:00:00 Robbi Hairston [employer] 350.1.13.10 [facility] 4.2.7.2.686 MATERNAL [id number] & CHILD [address] [place] [address] 2020-11-25 2020-11-25 Telephone Devin, 1.2.840.2 [id number] 855 11288 Univers 00:00:00 00:00:00 Robbi Hairston 07199.1.1 i ty of 3.104.2.7 [place] .3.936235 Medica l .8 Branch 2020-11-25 2020-11-25 [facility], 1.2.840.2 [id number] 70162 592 Univers 00:00:00 00:00:00 Godfrey 42500.1.1 ity of 3.104.2.7 [place] .3.025869 Medica l .8 Branch 2020-11-25 2020-11-25 Travel 1.2.840.1 1.2.879.367 4827 0247 Univers 00:00:00 00:00:00 53220.1.1 350.1.13.10 ity of 3.104.2.7 4.2.7.3.698 [place] .3.343338 084.8 Medica l .8 Branch 2020-11-25 2020-11-25 Orders Doctor 1.2.840.3 [id number] 48266 064 Univers 00:00:00 00:00:00 Only Unassigned, 58249.1.1 ity of [place] 3.104.2.7 [place] .3.324532 Medica l .8 Branch 2020-11-25 2020-11-25 Telephone Beltran, 1.2.840.5 [id number] 855 57843 Univers 00:00:00 00:00:00 Robbi R 42468.1.1 i ty of 3.104.2.7 [place] .3.360748 Medica l .8 [place] 2020-11-25 2020-11-25 Refill East, 1.2.840.1 [id number] 06627 592 Univers 00:00:00 00:00:00 Santiago 68438.1.1 ity of 3.104.2.7 [place] .3.367369 Medica l .8 Branch 2020-11-25 2020-11-25 Travel 1.2.840.1 1.2.269.179 8536 0247 Univers 00:00:00 00:00:00 78295.1.1 350.1.13.10 ity of 3.104.2.7 4.2.7.3.698 [place] .3.358074 084.8 Medica l .8 [place] 2020-11-25 2020-11-25 Orders Doctor 1.2.840.1 [id number] 21666 064 Univers 00:00:00 00:00:00 Only Unassigned, 94802.1.1 ity of [place] 3.104.2.7 [place] .3.118593 Medica l .8 [place] 2020-11-14 2020-11-14 Abstract Clark, 1.2.840.1 [id number] 95085 13939 Methodi 00:00:00 00:00:[address] 3.430.2.7 Hospit a .3.109086 l .8 2020-11-14 2020-11-14 Telephone Clark 1.2.840.1 [id number] 2100 499163 Methodi 00:00:00 00:00:[address] 3.430.2.7 Hospit a .3.618924 l .8 2020-11-12 2020-11-12 Outpatient Marika CARDENAS [facility] [id number] Univers 08:30:00 08:30:00 SANTIAGO ity of [facility] 2020-11-07 2020-11-07 Telephone Agustina Ortiz UTP 9539 1.2.840.11 4 [id number] DC 00:00:00 00:00:[address] 350.1.13.58 Health 9.2.7.2.686 [id number] 1 2020-11-07 2020-11-07 Telephone KIMBERLEY Ortiz 6400 1.2.840.114 124 [id number] 00:00:00 00:00:[address] 350.1.13.58 9.2.7.2.686 662.1272433 1 2020-10-31 2020-10-31 Office Hematpour UTP 6400 1.2.840.114 12 [id number] DC 07:54:00 09:45:[address] 350.1.13.58 Health 9.2.7.2.686 455.9759686 1 2020-10-30 2020-10-30 Abstract Rody Maguire UTP 6400 1.2.840.1 14 [id number] DC 00:00:00 00:00:[address] 350.1.13.58 Health 9.2.7.2.686 491.6446616 1 2020-10-29 2020-10-29 Refill East, 1.2.840.5 [id number] 24958 400 Univers 00:00:00 00:00:00 Santiago 13258.1.1 ity of 3.104.2.7 [place] .3.823811 Medica l .8 Branch 2020-10-29 2020-10-29 Refill East, 1.2.840.0 [id number] 48963 400 Univers 00:00:00 00:00:00 Santiago 31661.1.1 ity of 3.104.2.7 [place] .3.097857 Medica l .8 Branch 2020-10-27 2020-10-27 Telephone Jailyn, 1.2.840.6 [id number] 21 [id number] Methodi 00:00:00 00:00:[address] 3.430.2.7 Hospit a .3.786611 l .8 2020-10-24 2020-10-24 Telephone Clark, 1.2.840.1 [id number] 2100 498781 Methodi 00:00:00 00:00:[address] 3.430.2.7 Hospit a .3.217720 l .8 2020-10-22 2020-10-22 Outpatient R SELF, [facility] [id number] 868 Univers 13:00:00 13:00:[address] [facility] 2020-10-22 2020-10-22 Travel 1.2.840.1 1.2.820.187 2332 3839 Univers 00:00:00 00:00:00 24149.1.1 350.1.13.10 ity of 3.104.2.7 4.2.7.3.698 [place] .3.869162 084.8 Medica l .8 [place] 2020-10-22 2020-10-22 Travel 1.2.840.1 1.2.326.172 4891 3839 Univers 00:00:00 00:00:00 95322.1.1 350.1.13.10 ity of 3.104.2.7 4.2.7.3.698 [place] .3.864713 084.8 Medica l 8 [place] 2020-10-13 2020-10-13 [facility] [id number] Univers 08:45:00 08:45:[address] [facility] 2020-10-06 2020-10-12 Telemedici Chidimasa, 1.2.840.1 [id number] 21 [id number] Methodi 15:30:00 00:08:46 ne Ray 90046.1.[address] 3.430.2.7 Hospit a .3.971457 l .8 2020-09-30 2020-09-30 Telephone Jailyn, 1.2.840.5 [id number] 21 [id number] Methodi 00:00:00 00:00:[address] 3.430.2.7 Hospit a .3.057594 l .8 2020-09-21 2020-09-21 Travel 1.2.840.1 1.2.978.904 9276 625369 Methodi 00:00:00 00:00:[address] 3.430.2.7 0.2.7.3.698 spita .3.061562 084.8 l .8 2020-09-06 2020-09-06 [facility] 1.2.840.1 [id number] 51101 02295 Methodi 17:42:30 23:59:[address] 3.430.2.7 Hospit a .3.587549 l .8 2020-09-06 2020-09-06 [facility], 1.2.840.1 [id number] 2099 [id number] Methodi 16:50:00 17:41:00 Encounter Ray 54571.1.[address] 3.430.2.7 Hospit a .3.200859 l .8 2020-09-05 2020-09-05 [facility], 1.2.840.1 [id number] 2099 378946 Methodi 09:17:00 19:45:00 Encounter Ray [address]99.1.[address] 3.430.2.7 Hospit a .3.748659 l .8 2020-09-05 2020-09-05 Surgery [facility], 1.2.840.1 [id number] 45441 66861 Methodi 11:30:00 13:15:[address] 3.430.2.7 Hospit a .3.105110 l .8 2020-09-05 2020-09-05 Anesthesia [facility], 1.2.840.1 [id number] 123 [id number] Methodi 11:27:00 12:20:00 Event Kirit 65716.1.1 243 s t V. 3.430.2.7 Hospit a .3.911178 l .8 2020-09-05 2020-09-05 Travel 1.2.840.1 1.2.460.504 4170 568955 Methodi 00:00:00 00:00:[address] 3.430.2.7 0.2.7.3.698 Ho spita .3.361940 084.8 l .8 2020-09-04 2020-09-04 Telephone Meisenbach, 1.2.840.1 [id number] Methodi 00:00:00 00:00:00 Sarai Corbin. 42459.1.1 762 s t 3.430.2.7 Hospit a .3.874870 l .8 2020-09-02 2020-09-02 Telephone Meisenbach, 1.2.840.3 [id number] Methodi 00:00:00 00:00:00 Sarai Corbin. 19001.1.1 344 s t 3.430.2.7 Hospit a .3.897202 l .8 2020-08-29 2020-08-[id number] 10:20:00 14:10:00 Outpatient r [place] [address] [facility] 2020-08-29 2020-08-30 Outpatient HEMATPOUR, [facility] CAR 7500 [facility] 05:20:00 09:10:00 BEVERLY 2020-08-06 2020-08-06 Office East, 1.2.840.3 [id number] 416 Univers 08:03:23 09:17:49 Visit Santiago 57493.1.1 familia 3.104.2.7 [place] .3.051895 Medica l .8 Branch 2020-08-06 2020-08-06 Outpatient R EAST, [facility] [id number] Univers 08:30:00 08:30:00 SANTIAGO barbosa of [facility] 2020-07-14 2020-07-14 Outpatient R SELF, [facility] [id number] Univers 09:30:00 09:30:00 GADIEL barbosa o f [facility] 2020-07-14 2020-07-14 Travel 1.2.840.1 1.2.969.221 4208 2575 Univers 00:00:00 00:00:00 90157.1.1 350.1.13.10 ity of 3.104.2.7 4[place].7.3.698 [place] .3.842437 084.8 Medica l .8 [place] 2020-07-14 2020-07-14 Orders Doctor 1.2.840.3 [id number] 57017 309 Univers 00:00:00 00:00:00 Only Unassigned, 97306.1.1 ity of [place] 3.104.2.7 [place] .3.650531 Medica l .8 [place] 2020-06-16 2020-06-16 Outpatient R [facility] [id number] 239 Univers 08:00:00 08:00:00 GADIEL barbosa o f [facility] 2020-06-06 2020-06-06 Telephone Ronald, 1.2.840.9 [id number] 809 92681 Univers 00:00:00 00:00:00 Santiago 00990.1.1 ity of 3.104.2.7 [place] .3.459474 Medica l .8 [place] 2020-06-04 2020-06-04 Section Beamer Santiago Cardenas 1.2.840.1 [id number] Univers 09:31:58 09:40:12 Visit [facility] 78855.1.1 ity of 3.104.2.7 [place] .3.643718 Medica l .8 [place] 2020-06-04 2020-06-04 [facility] 1.2.496.853 4868 9729 Univers 08:13:41 09:28:25 Visit Santiago [facility] 350.1.13.10 i ty of CLINICS 4.2.7.2.686 [place] 557.7329554 [facility] porfirio 089 [place] 2020-06-04 2020-06-04 [facility] [id number] Univers 08:30:00 08:30:00 SANTIAGO barbosa of [facility] 2020-06-04 2020-06-04 Orders Doctor 1.2.840.5 [id number] 079 Univers 00:00:00 00:00:00 Only Unassigned, 30061.1.1 ity of [place] 3.104.2.7 [place] .3.904993 Medica l .8 [place] 2020-05-19 2020-05-19 Telephone East, 1.2.840.2 [id number] 804 74363 Univers 00:00:00 00:00:00 Santiago 76989.1.1 ity of 3.104.2.7 [place] .3.092325 Medica l .8 [place] 2020-04-24 2020-04-24 Telephone East, 1.2.840.3 [id number] 799 48294 Univers 00:00:00 00:00:00 Santiago 55207.1.1 ity of 3.104.2.7 [place] .3.037791 Medica l .8 [place] 2020-04-14 2020-04-14 Outpatient R EAST, [facility] [id number] Univers 09:00:00 09:00:00 SANTIAGO ity of [facility] 2020-04-14 2020-04-14 Telephone East, 1.2.840.8 [id number] Univers 00:00:00 00:00:00 [place] 34238.1.1 ity of 3.104.2.7 [place] .3.147441 Medica l .8 [place] 2020-03-31 2020-03-31 Outpatient R EAST, [facility] [id number] Univers 08:30:00 08:30:00 [place] barbosa [facility] 2020-03-03 2020-03-03 Outpatient R SELF, [facility] [id number] Univers 08:00:00 08:00:00 GADIEL raheemcharlie o f [facility] 2020-03-03 2020-03-03 Outpatient R SELF, [facility] [id number] Univers 08:00:00 08:00:00 GADIEL ity o f [facility] 2020-03-03 2020-03-03 Travel 1.2.840.1 1.2.586.914 [id number] Univers 00:00:00 00:00:00 78325.1.1 350.1.13.10 ity of 3.104.2.[place]3.698 [place] .3.307222 084.8 Medica l .8 [place] 2020-02-06 2020-02-06 Telephone East, 1.2.840.7 [id number] Univers 00:00:00 00:00:00 [place] 29002.1.1 ity of 3.104.2.7 [place] .3.027325 Medica l .8 [place] 2020-01-26 2020-01-26 Emergency Caridad, 1.2.840.6 [id number] Univers 10:03:00 13:05:00 Cynise 28765.1.1 ity of 3.104.2.7 [place] .3.304665 Medica l .8 [place] 2020-01-26 2020-01-26 Travel 1.2.840.1 1.2.874.012 [id number] Univers 00:00:00 00:00:00 90542.1.1 350.1.13.10 ity of 3.104.2.[place]3.698 [place] .[place].696[place] 084.8 Medica l .8 [place] 2020-01-25 2020-01-25 Outpatient R EAST, [facility] [id number] Univers 08:30:00 08:30:00 [place] ity of [facility] 2020-01-25 2020-01-25 Telemedici East, 1.2.840.4 [id number] Univers 07:36:49 08:06:49 ne Visit [place] 93964.1.1 ity of 3.104.2.7 [place] .3.117808 Medica l .8 [place] 2020-01-16 2020-01-16 Outpatient R EAST, [facility] [id number] Univers 08:00:00 08:00:00 ASNTIAGO ity of [facility] 2020-01-16 2020-01-16 Telephone East, 1.2.840.6 [id number] Univers 00:00:00 00:00:00 [place] 08032.1.1 ity of 3.104.2.7 [place] .3.652692 Medica l .8 [place] 2020-01-14 2020-01-14 Outpatient R SELF, [facility] [id number] Univers 08:00:00 08:00:00 GADIEL rodas [facility] 2019-12-31 2019-12-31 Outpatient R SELF, [facility] [id number] Univers 08:45:00 08:45:00 GADIEL rodas [facility] 2019-10-17 2019-10-17 Outpatient R EAST, [facility] [id number] Univers 08:30:00 08:30:00 [facility] 2019-10-12 2019-10-12 Outpatient R EAST, [facility] [id number] Univers 13:00:00 13:00:00 [facility] 2019-10-12 2019-10-12 Telemedici East, 1.2.840.7 [id number] Univers 07:38:30 08:08:30 ne Visit [place] 84031.1.1 ity of 3.104.2.7 [place] .3.960811 Medica l .8 [place] 2019-10-08 2019-10-08 Outpatient R SELF, [facility] [id number] Univers 10:15:00 10:15:00 GADIEL rodas [facility] 2019-10-03 2019-10-03 Case Assman, 1.2.840.6 [id number] Univers 00:00:00 00:00:00 Management Michael Corbin 49380.1.1 i ty of 3.104.2.7 [place] .3.559601 Medica l .8 [place] 2019-09-27 2019-09-27 Telephone East, 1.2.840.5 [id number] Univers 00:00:00 00:00:00 [place] 99453.1.1 ity of 3.104.2.7 [place] .3.396196 Medica l .8 [place] 2019-09-04 2019-09-04 Refill East, 1.2.840.7 [id number] Univers 00:00:00 00:00:00 [place] 07582.1.1 ity of 3.104.2.7 [place] .3.521803 Medica l .8 [place] 2019-07-24 2019-07-24 Outpatient R EAST, [facility] [id number] Univers 08:30:00 08:30:00 [place] ity [facility] 2019-07-17 2019-07-17 [id number] Univers 10:00:00 10:00:00 [place] itcharlie [facility] 2019-06-15 2019-06-15 Telephone East, 1.2.840.6 [id number] Univers 00:00:00 00:00:00 [place] 37183.1.1 ity of 3.104.2.7 [place] .3.716739 Medica l .8 [place] 2019-06-13 2019-06-13 Telephone Team, [facility] 1.2.840.9 [id number] Univers 00:00:00 00:00:00 Health 04490.1.1 [place] .3.940225 Medica l .8 [place] 2019-05-10 2019-05-10 Refill Ronald, 1.2.840.4 [id number] Univers 00:00:00 00:00:00 [place] 75651.1.1 ity of 3.104.2.7 [place] .3.410977 Medica l .8 [place] 2019-05-09 2019-05-09 Refill Ronald, 1.2.840.8 [id number] Univers 00:00:00 00:00:00 [place] 99634.1.1 ity of 3.104.2.7 [place] .3.403433 Medica l .8 [place] 2019-04-30 2019-04-30 [facility] [id number] Univers 10:15:00 10:33:05 GADIEL maciely o f [facility] 2019-04-18 2019-04-18 Section Beamer [place] C[place] 1.2.840.1 [id number] Univers 10:00:39 10:44:31 Visit [facility] 45468.1.1 ity of 3.104.2.7 [place] .3.057933 Medica l .8 [place] 2019-04-18 2019-04-18 [facility] [id number] Univers 10:00:00 10:44:31 [place] ity of [facility] 2019-04-18 2019-04-18 Office East, 1.2.840.1 [id number] Univers 08:27:44 09:53:27 Visit Santiago 15608.1.1 ity of 3.104.2.7 [place] .3.598091 Medica l .8 [facility] 2019-04-18 2019-04-18 Orders Doctor 1.2.840.8 [id number] Univers 00:00:00 00:00:00 Only Unassigned, 98805.1.1 ity of [place] 3.104.2.7 [place] .3.213792 Medica l .8 Branch 2019-04-11 2019-04-11 Refill East, 1.2.840.9 [id number] Univers 00:00:00 00:00:00 [place] 52539.1.1 ity of 3.104.2.7 [place] .3.481706 Medica l .8 Branch 2019-04-09 2019-04-09 Refill East, 1.2.840.2 [id number] Univers 00:00:00 00:00:00 [place] 90537.1.1 ity of 3.104.2.7 [place] .3.387696 Medica l .8 Branch 2019-04-03 2019-04-03 Telephone Team, [facility] 1.2.840.3 [id number] Univers 00:00:00 00:00:00 Health 75764.1.1 [place] .3.343434 Medica l .8 [place] 2019-03-27 2019-03-27 Telephone Self, 1.2.840.6 [id number] Univers 00:00:00 00:00:00 Gadiel 88117.1.1 ity of 3.104.2.7 [place] .3.777194 Medica l .8 Branch 2019-01-17 2019-01-17 Office East, 1.2.840.5 [id number] Univers 07:37:21 10:32:51 Visit Santiago 06743.1.1 ity of 3.104.2.7 [place] .3.352188 Medica l .8 Branch 2019-01-04 2019-01-12 Office Eveline Hansen 1.2.840.8 [id number] Univers 11:19:32 11:08:05 Visit Mariela 41553.1.1 ity of 3.104.2.7 [place] .3.971081 Medica l .8 Branch 2019-01-10 2019-01-10 Telephone Stanislav, 1.2.840.0 [id number] Univers 00:00:00 00:00:00 Eladio Inman 10312.1.1 ity of 3.104.2.7 [place] .3.406782 Medica l .8 Branch 2018-12-18 2018-12-18 Office Geraldine 1.2.840.2 [id number] Univers 08:48:45 09:13:43 Visit Leyda 62226.1.1 it y of 3.104.2.7 [place] .3.723459 Medica l .8 Branch 2018-10-30 2018-10-30 Telephone East, 1.2.840.3 [id number] Univers 00:00:00 00:00:00 [place] 39815.1.1 ity of 3.104.2.7 [place] .3.648292 Medica l .8 [place] 2018-10-23 2018-10-23 Orders Doctor 1.2.840.6 [id number] Univers 00:00:00 00:00:00 Only Unassigned, 24058.1.1 ity of [place] 3.104.2.7 [place] .3.531674 Medica l .8 Branch 2018-10-23 2018-10-23 Nurse Selvin, 1.2.840.4 [id number] Univers 00:00:00 00:00:00 Triage Stefanie 91378.1.1 ity of 3.104.2.7 [place] .3.665294 Medica l .8 Branch 2018-10-23 2018-10-23 Telephone Self, 1.2.840.9 [id number] Univers 00:00:00 00:00:00 Gadiel 72292.1.1 ity of 3.104.2.7 [place] .3.936577 Medica l .8 Branch 2018-10-20 2018-10-20 Telephone Self, 1.2.840.6 [id number] Univers 00:00:00 00:00:00 Gadiel 16472.1.1 ity of 3.104.2.7 [place] .3.307289 Medica l .8 Branch Results Test Description Test Time Test Comments Results Result Comments Source COMP. METABOLIC PANEL (03251) 2022-05-06 22:42:55 Test Item Value Reference Range Interpretation Comme nts NA (test code = 8705257422) 137 mmol/L 135-145 K (test code = 7449319593) 3.2 mmol/L 3.5-5.0 L CL (test code = 3704314711) 100 mmol/L 98-108 CO2 TOTAL (test code = 2452592309) 23 mmol/L 23-31 AGAP (test code = 0596061444) 2-16 BUN (test code = 3571681425) 41 mg/dL 7-23 H GLUCOSE (test code = 2457367518) 98 mg/dL 70-110 CREATININE (test code = 1.55 mg/dL 0.50-1.04 H 3388863607) TOTAL BILI (test code = 0.8 mg/dL 0.1-1.9 1846269016) CALCIUM (test code = 2052543961) 8.3 mg/dL 8.6-10.6 L T PROTEIN (test code = 0547634252) 6.9 g/dL 6.3-8.2 ALBUMIN (test code = 6222229045) 3.9 g/dL 3.5-5.0 ALK PHOS (test code = 9767372938) 89 U/L 34-122 ALTv (test code = 1742-6) 101 U/L 5-35 H AST(SGOT) (test code = 4611942519) 203 U/L 13-40 H eGFR (test code = 7666084791) mL/min/1.73m2 KYLE (test code = KYLE) Association [...] tests). Lab Interpretation (test code = Abnormal 14996-8) [facility] WITH [id number] 22:33:52 Test Item Value Reference Range Interpretation Comments WBC (test code = See_Comment L [Automated 3537-2) message] The sy stem which generated this result transmitted reference range : 4.30 - 11.10 10*3/?L. The reference range was not used to interpret this result as normal/abnormal . RBC (test code = See_Comment [Automated 073-8) message] The sy stem which generated this [...] RDW-SD (test code = 46.3 fL 39.0-49.9 85744-5) RDW-CV (test code = 13.5 % 12.0-15.5 788-0) PLT (test code = See_Comment L [Automated 777-3) message] The sy stem which generated this result transmitted reference range : 166 - 358 10*3/ ?L. The reference r abbey was not used to interpret this result as normal/abnormal . MPV (test code = 9.5 fL 9.5-12.9 89001-0) NRBC/100 WBC (test See_Comment [Automat ed code = 2753967819) message] The system which generated this result transmitted reference range : 0.0 - 10.0 /100 WBCs. The refer ence range was not u sed to interpret th is result as normal/abnormal . NRBC x10^3 (test code See_Comment [Auto mated = 8246922518) message] The s ystem which generated this result transmitted reference range : 10*3/?L. The reference range was not used to interpret this result as normal/abnormal . GRAN MAT (NEUT) % 58.3 % (test code = 770-8) IMM GRAN % (test code 0.80 % = 4715885460) LYMPH % (test code = 28.1 % 736-9) MONO % (test code = 12.0 % 5905-5) EOS % (test code = 0.5 % 713-8) BASO % (test code = 0.3 % 706-2) GRAN MAT x10^3(ANC) 2.29 10*3/uL 1.88-7.09 (test code = 5248531521) IMM GRAN x10^3 (test 0.03 10*3/uL 0.00-0.06 code = 5524625653) LYMPH x10^3 (test code 1.10 10*3/uL 1.32-3.29 L = 731-0) MONO x10^3 (test code 0.47 10*3/uL 0.33-0.92 = 742-7) EOS x10^3 (test code = 0.03-0.39 L 711-2) BASO x10^3 (test code 0.01-0.07 = 704-7) Lab Interpretation Abnormal (test code = 71398-5) [facility] METABOLIC PANEL (NA, K, CL, CO2, GLUCOSE, BUN, CREATININE, CA)2022-04-22 21:43:42 Test Item Value Reference Range Interpretation Comments NA (test code = 142 mmol/L 135-145 0821301053) K (test code = 3.5 mmol/L 3.5-5.0 0894873316) CL (test code = 106 mmol/L 98-108 4494806443) CO2 TOTAL (test code = 26 mmol/L 23-31 3506457907) AGAP (test code = 2-16 6429978133) BUN (test code = 29 mg/dL 7-23 H 5250166861) GLUCOSE (test code = 84 mg/dL 70-110 7921748997) CREATININE (test code = 1.16 mg/dL 0.50-1.04 H 0000430324) CALCIUM (test code = 8.2 mg/dL 8.6-10.6 L 7556175609) eGFR (test code = mL/min/1.73m2 3472246056) KYLE (test code = KYLE) Association of [...] tests). Lab Interpretation Abnormal (test code = 32411-3) [facility] WITH [id number] 21:33:01 Test Item Value Reference Range Interpretation [...] (test code = 50.7 fL 39.0-49.9 H 54963-3) RDW-CV (test code = 14.6 % 12.0-15.5 788-0) PLT (test code = See_Comment L [Automated 777-3) message] The sy stem which generated this result transmitted reference range : 166 - 358 10*3/ ?L. The reference r abbey was not used to interpret this result as normal/abnormal . MPV (test code = 8.8 fL 9.5-12.9 L 78183-8) NRBC/100 WBC (test See_Comment [Automat ed code = 3448260805) message] The system which generated this result transmitted reference range : 0.0 - 10.0 /100 WBCs. The refer ence range was not u sed to interpret th is result as normal/abnormal . NRBC x10^3 (test code See_Comment [Auto mated = 2060323479) message] The s ystem which generated this result transmitted reference range : 10*3/?L. The reference range was not used to interpret this result as normal/abnormal . GRAN MAT (NEUT) % 70.9 % (test code = 770-8) IMM GRAN % (test code 0.50 % = 3366620175) LYMPH % (test code = 17.4 % 736-9) MONO % (test code = 9.0 % 5905-5) EOS % (test code = 1.7 % 713-8) BASO % (test code = 0.5 % 706-2) GRAN MAT x10^3(ANC) 4.60 10*3/uL 1.88-7.09 (test code = 6359139700) IMM GRAN x10^3 (test 0.03 10*3/uL 0.00-0.06 code = 5125731184) LYMPH x10^3 (test code 1.13 10*3/uL 1.32-3.29 L = 731-0) MONO x10^3 (test code 0.58 10*3/uL 0.33-0.92 = 742-7) EOS x10^3 (test code = 0.11 10*3/uL 0.03-0.39 711-2) BASO x10^3 (test code 0.03 10*3/uL 0.01-0.07 = 704-7) Lab Interpretation Abnormal (test code = 63230-1) [id number]07 Test Item Value Reference Range Interpretation Comments Blood Culture-Aerobic No organisms No growth Previo us (test code = 35382-3) isolated prelim inary verified result was Culture [...] Culture-Anaerobic isolated preliminar y (test code = 10256-3) verifi ed result was Culture In Progress [...] CDT Lab Interpretation Normal (test code = 55872-0) [facility] CULTURE [id number] 06:01:07 Test Item Value Reference Range Interpretation Comments Blood Culture-Aerobic No organisms No growth Previo us (test code = 68909-5) isolated prelim inary verified result was Culture [...] Culture-Anaerobic isolated preliminar y (test code = 14366-2) verifi ed result was Culture In Progress [...] CDT Lab Interpretation Normal (test code = 04487-5) [facility] CULTURE [id number] 06:01:07 Test Item Value Reference Range Interpretation Comments Blood Culture-Aerobic No organisms No growth Previo us (test code = 54314-5) isolated prelim inary verified result was Culture [...] Culture-Anaerobic isolated preliminar y (test code = 87025-1) verifi ed result was Culture In Progress [...] CDT Lab Interpretation Normal (test code = 48385-2) [facility] [id number] 10:49:10 Test Item Value Reference Range Interpretation Comments NT-proBNP (test code 2660 pg/mL See_Comment H [Autom ated = 8602492278) message] The system which generated this result transmitted reference range : <=125. The reference range was not used to interpret this result as normal/abnormal . KYLE (test code = KYLE) Biotin has been reported to cause a negative bias, interpret results relative to patient's use of biotin. Lab Interpretation Abnormal (test code = 34652-9) [facility] [id number] 10:49:10 Test Item Value Reference Range Interpretation Comments NT-proBNP (test code 2660 pg/mL See_Comment H [Autom ated = 2774446799) message] The system which generated this result transmitted reference range : <=125. The reference range was not used to interpret this result as normal/abnormal . KYLE (test code = KYLE) Biotin has been reported to cause a negative bias, interpret results relative to patient's use of biotin. Lab Interpretation Abnormal (test code = 78832-0) [facility] (NA, K, CL, CO2, GLUCOSE, BUN, CREATININE, CA)2022-02-15 10:44:07 Test Item Value Reference Range Interpretation Comments NA (test code = 134 mmol/L 135-145 L 6144356354) K (test code = 3.2 mmol/L 3.5-5 L 2370217518) CL (test code = 98 mmol/L 98-108 3944685461) CO2 TOTAL (test code = 27 mmol/L 23-31 3543561614) AGAP (test code = 2-16 1127100488) BUN (test code = 19 mg/dL 7-23 7420367488) GLUCOSE (test code = 102 mg/dL 70-110 6030630063) CREATININE (test code = 0.95 mg/dL 0.5-1.04 0939436319) CALCIUM (test code = 8.5 mg/dL 8.6-10.6 L 4359419019) eGFR (test code = mL/min/1.73m2 0341735134) KYLE (test code = KYLE) Association of [...] tests). Lab Interpretation Abnormal (test code = 98972-9[facility] Test Item Value Reference Range Interpretation Comments MAGNESIUM (test code = 7984610788) 1.8 mg/dL 1.7-2.4 Lab Interpretation (test code = Normal 71263-3) [facility] 10[facility]44[facility]07 Test Item Value Reference Range Interpretation Comments MAGNESIUM (test code = 1025328595) 1.8 mg/dL 1.7-2.4 Lab Interpretation (test code = Normal 26821-8) [facility] METABOLIC PANEL (NA, K, CL, CO2, GLUCOSE, BUN, CREATININE, CA)2022-02-15 10:44:07 Test Item Value Reference Range Interpretation Comments NA (test code = 134 mmol/L 135-145 L 4923088211) K (test code = 3.2 mmol/L 3.5-5.0 L 1706246793) CL (test code = 98 mmol/L 98-108 9802211537) CO2 TOTAL (test code = 27 mmol/L 23-31 5345651909) AGAP (test code = 2-16 7257147210) BUN (test code = 19 mg/dL 7-23 6615744149) GLUCOSE (test code = 102 mg/dL 70-110 9945658758) CREATININE (test code = 0.95 mg/dL 0.50-1.04 9821300861) CALCIUM (test code = 8.5 mg/dL 8.6-10.6 L 2090835408) eGFR (test code = mL/min/1.73m2 4359626673) KYLE (test code = KYLE) Association of [...] tests). Lab Interpretation Abnormal (test code = 03255-5) [facility] WITH [id number] 10:12:06 Test Item Value Reference Range Interpretation [...] RDW-SD (test code = 47.8 fL 39-49.9 51422-8) RDW-CV (test code = 15.2 % 12-15.5 788-0) PLT (test code = See_Comment L [Automated 777-3) message] The sy stem which generated this result transmitted reference range : 166 - 358 10*3/ ?L. The reference r abbey was not used to interpret this result as normal/abnormal . MPV (test code = 8.9 fL 9.5-12.9 L 84849-6) NRBC/100 WBC (test See_Comment [Automat ed code = 3407020587) message] The system which generated this result transmitted reference range : 0.0 - 10.0 /100 WBCs. The refer ence range was not u sed to interpret th is result as normal/abnormal . NRBC x10^3 (test code See_Comment [Auto mated = 7616778714) message] The s ystem which generated this result transmitted reference range : 10*3/?L. The reference range was not used to interpret this result as normal/abnormal . GRAN MAT (NEUT) % 65.9 % (test code = 770-8) IMM GRAN % (test code 0.30 % = 7131472990) LYMPH % (test code = 21.0 % 736-9) MONO % (test code = 10.1 % 5905-5) EOS % (test code = 2.4 % 713-8) BASO % (test code = 0.3 % 706-2) GRAN MAT x10^3(ANC) 2.49 10*3/uL 1.88-7.09 (test code = 7646625519) IMM GRAN x10^3 (test 0-0.06 code = 4208321599) LYMPH x10^3 (test code 0.79 10*3/uL 1.32-3.29 L = 731-0) MONO x10^3 (test code 0.38 10*3/uL 0.33-0.92 = 742-7) EOS x10^3 (test code = 0.09 10*3/uL 0.03-0.39 711-2) BASO x10^3 (test code 0.01-0.07 = 704-7) Lab Interpretation Abnormal (test code = 17064-3) [facility] WITH [id number] 10:12:06 Test Item Value Reference Range Interpretation [...] RDW-SD (test code = 47.8 fL 39.0-49.9 64489-4) RDW-CV (test code = 15.2 % 12.0-15.5 788-0) PLT (test code = See_Comment L [Automated 777-3) message] The sy stem which generated this result transmitted reference range : 166 - 358 10*3/ ?L. The reference r abbey was not used to interpret this result as normal/abnormal . MPV (test code = 8.9 fL 9.5-12.9 L 82631-8) NRBC/100 WBC (test See_Comment [Automat ed code = 9724437347) message] The system which generated this result transmitted reference range : 0.0 - 10.0 /100 WBCs. The refer ence range was not u sed to interpret th is result as normal/abnormal . NRBC x10^3 (test code See_Comment [Auto mated = 6086073581) message] The s ystem which generated this result transmitted reference range : 10*3/?L. The reference range was not used to interpret this result as normal/abnormal . GRAN MAT (NEUT) % 65.9 % (test code = 770-8) IMM GRAN % (test code 0.30 % = 7782543439) LYMPH % (test code = 21.0 % 736-9) MONO % (test code = 10.1 % 5905-5) EOS % (test code = 2.4 % 713-8) BASO % (test code = 0.3 % 706-2) GRAN MAT x10^3(ANC) 2.49 10*3/uL 1.88-7.09 (test code = 7134392590) IMM GRAN x10^3 (test 0.00-0.06 code = 3613142304) LYMPH x10^3 (test code 0.79 10*3/uL 1.32-3.29 L = 731-0) MONO x10^3 (test code 0.38 10*3/uL 0.33-0.92 = 742-7) EOS x10^3 (test code = 0.09 10*3/uL 0.03-0.39 711-2) BASO x10^3 (test code 0.01-0.07 = 704-7) Lab Interpretation Abnormal (test code = 80917-9) [facility] WITH [id number] 11:18:28 Test Item Value Reference Range Interpretation [...] RDW-SD (test code = 49.5 fL 39-49.9 66363-6) RDW-CV (test code = 15.5 % 12-15.5 788-0) PLT (test code = See_Comment L [Automated 777-3) message] The sy stem which generated this result transmitted reference range : 166 - 358 10*3/ ?L. The reference r abbey was not used to interpret this result as normal/abnormal . MPV (test code = 11.4 fL 9.5-12.9 25172-9) IPF % (test code = 8.7 % 1.3-7.7 H Platelet count 4378741219) measured by fluorescence method. NRBC/100 WBC (test See_Comment [Automat ed code = 3121029807) message] The system which generated this result transmitted reference range : 0.0 - 10.0 /100 WBCs. The refer ence range was not u sed to interpret th is result as normal/abnormal . NRBC x10^3 (test code See_Comment [Auto mated = 1135329606) message] The s ystem which generated this result transmitted reference range : 10*3/?L. The reference range was not used to interpret this result as normal/abnormal . GRAN MAT (NEUT) % 62.0 % (test code = 770-8) IMM GRAN % (test code 0.80 % = 5828863114) LYMPH % (test code = 22.2 % 736-9) MONO % (test code = 9.6 % 5905-5) EOS % (test code = 5.1 % 713-8) BASO % (test code = 0.3 % 706-2) GRAN MAT x10^3(ANC) 2.21 10*3/uL 1.88-7.09 (test code = 3086197432) IMM GRAN x10^3 (test 0.03 10*3/uL 0-0.06 code = 3696197770) LYMPH x10^3 (test code 0.79 10*3/uL 1.32-3.29 L = 731-0) MONO x10^3 (test code 0.34 10*3/uL 0.33-0.92 = 742-7) EOS x10^3 (test code = 0.18 10*3/uL 0.03-0.39 711-2) BASO x10^3 (test code 0.01-0.07 = 704-7) POLYCHROMASIA (test 2+ See_Comment [Automa arpit code = 55959-7) message] The system which generated this result [...] . Lab Interpretation Abnormal (test code = 83030-8) [facility] METABOLIC PANEL (NA, K, CL, CO2, GLUCOSE, BUN, CREATININE, CA)2022-02-13 10:39:07 Test Item Value Reference Range Interpretation Comments NA (test code = 136 mmol/L 135-145 4603301008) K (test code = 4.1 mmol/L 3.5-5 7952162471) CL (test code = 102 mmol/L 98-108 7387060578) CO2 TOTAL (test code = 27 mmol/L 23-31 8379111140) AGAP (test code = 2-16 3730225785) BUN (test code = 22 mg/dL 7-23 6363717579) GLUCOSE (test code = 94 mg/dL 70-110 4779491765) CREATININE (test code = 0.94 mg/dL 0.5-1.04 0072887314) CALCIUM (test code = 8.1 mg/dL 8.6-10.6 L 6204217912) eGFR (test code = mL/min/1.73m2 5753526162) KYLE (test code = KYLE) Association of [...] tests). Lab Interpretation Abnormal (test code = 58008-4) [facility] 01:50:10 Test Item Value Reference Range Interpretation Comments Height (test code = in 5576280673) Weight (test code = lbs 4850540042) Systolic BP (test code mmHg = 0002530857) Diastolic BP (test code mmHg = 1192629131) Heart Rate (test code = bpm 2575050085) BSA (test code = 1.85 m2 0029084627) IVS (test code = 1.22 cm 4163353948) Interventricular Septum 1.22 cm Diastolic Thickness by 2D (test code = 7241419) LVIDD (test code = 5.00 cm 7292264961) Left Ventricular End 117.9 mL Diastolic Volume by Teichholz Method (test code = 9779718) LVPWD (test code = 1.22 cm 0242362916) PW (test code = 1.22 cm 0.6-1.3 7864745367) EF(Teich) (test code = 74.60 % 5031952352) LVIDS (test code = 2.80 cm 4223019117) Left Ventricular End 29.9 mL Systolic Volume by Teichholz Method (test code = 3637489) FS (test code = 44 % 3990038284) EF - 2D (test code = 74.60 % 38854035) LVOT diameter (test 2.16 cm code = 0745143199) LVOT area (test code = 3.70 cm2 0265561606) Ao root diam (test code 3.40 cm = 7512804344) Aortic root (test code 3.4 cm = 2647933749) Ao root annulus (test 3.4 cm code = 6397963166) LA size (test code = 3.4 cm 8616773423) TR Peak Spencer (test code 330.0 cm/s = 1707601744) Triscuspid Valve mmHg Regurgitation Peak Gradient (test code = 4249099615) PV REGURGITATION PEAK mmHg GRADIENT (test code = 1938036257) PI dec slope (test code 137.20 cm/s2 = 0911287647) LAV(MOD-sp4) (test code 102.90 mL = 4466910514) MV Peak E Spencer (test 84.1 cm/s code = 2798448538) MV Peak A Spencer (test 40.1 cm/s code = 1351480293) E/A ratio (test code = ratio 4220591099) MV valve area p 1/2 3.70 cm2 method (test code = 9909071727) MV dec slope (test code 413.00 cm/s2 = 3156349235) MV P1/2t max spencer (test 83.70 cm/s code = 6507732784) MV Prop V (test code = 41.80 cm/s 8032194143) Tapse (test code = 1.83 cm 5773025729) LVOT stroke volume 96.90 cm3 (test code = 5463725498) LVOT peak spencer (test 125.5 cm/s code = 5640648553) LVOT mn grad (test code mmHg = 7729735809) AV LVOT peak gradient mmHg (test code = 4317643265) LVOT peak VTI (test 26.4 cm code = 4133347146) LV V1 mean (test code = 78.10 cm/s 7753471522) Aortic valve mean 103.7 cm/s velocity (test code = 0613959732) Ao peak spencer (test code 165.6 cm/s = 8714375584) Ao VTI (test code = 37.2 cm 9771885393) AV area by cont VTI 2.6 cm2 (test code = 7983494548) AV area peak spencer (test 2.8 cm2 code = 0955051049) Ao max PG (test code = 11.00 mm[Hg] 6367510913) AV peak gradient (test mmHg code = 3833038404) AV valve area (test 2.60 cm2 code = 8201023996) AV mean gradient (test mmHg code = 5344008126) LA Volume Index (BP) 55.2 mL/m2 (test code = 4045030241) LA volume (BP) (test 102.1 mL code = 3537473894) LAV(MOD-sp2) (test code 86.10 mL = 9295939334) A2C EF (test code = 61.20 % 4770767806) EF(sp2-el) (test code = 61.60 % 6296880343) SV(MOD-sp2) (test code 47.10 mL = 5724409032) LV Diastolic Volume 70.7 mL (BP) (test code = 6361487007) A4C EF (test code = 53.00 % 7409098169) EF(MOD-bp) (test code = 56.70 % 8609874513) EF(sp4-el) (test code = 53.90 % 5689269790) LV Systolic Volume (BP) 30.6 mL (test code = 2141309181) SV(MOD-bp) (test code = 40.10 mL 9867315878) SV(MOD-sp4) (test code 32.40 mL = 2890311819) SV(sp4-el) (test code = 33.10 mL 7219229540) EF (test code = 6923375355) Left Ventricular Stroke 40.1 mL Volume by 2-D Biplane-MOD (test code = 7459277) LV Diastolic Volume 38.2 mL/m2 Index (BP) (test code = 3750482599) LV Systolic Volume 16.5 mL/m2 Index (BP) (test code = 3664989998) Radiology Study observation (narrative) (test code = 07456-1) KYLE (test code = KYLE) ?Left?Ventricle: Left [...] 1.00The left ventricular wall motion is normal. [id number] 05:45:01 Test Item Value Reference Interpretation Comments Range TROPONIN I (test See_Comment [Automated code = 4761342494) message] The system which generated this result [...] biotin. Lab Interpretation Normal (test code = 57844-2) [facility] [id number] 05:41:40 Test Item Value Reference Range Interpretation Comments NT-proBNP (test code 4250 pg/mL See_Comment H [Autom ated = 9673830350) message] The system which generated this result transmitted reference range : <=125. The reference range was not used to interpret this result as normal/abnormal . KYLE (test code = KYLE) Biotin has been reported to cause a negative bias, interpret results relative to patient's use of biotin. Lab Interpretation Abnormal (test code = 62148-2) [facility] [id number] 05:35:21 Test Item Value Reference Range Interpretation [...] seconds. Lab Interpretation Normal (test code = 72234-1) [facility] [id number] 05:35:21 Test Item Value Reference Range Interpretation [...] seconds. Lab Interpretation Normal (test code = 03627-0) [facility] / [id number] 05:33:21 Test Item Value Reference Range Interpretation Comments PROTIME PATIENT (test See_Comment [Auto mated message] code = 5964-2) The system ich generated this result transmitted ref erence range: 12.0 - 1 4.7 Seconds. The re ference range was not u sed to interpret this result as normal/abnor mal. INR (test code = 6301-6) Nor mal INR <1.1; Warfarin Therap eutic range 2.0 to 3. 0 or 2.5 to 3.5, dep ending upon the indica tions. Lab Interpretation (test Normal code = 60189-2) [facility] ([id number])2022-02-11 05:33:21 Test Item Value Reference Range Interpretation Comments NA (test code = 137 mmol/L 135-145 [id number]) K (test code = 4.3 mmol/L 3.5-5 3536972198) CL (test code = 103 mmol/L 98-108 4229907101) CO2 TOTAL (test code = 25 mmol/L 23-31 3721494496) AGAP (test code = 2-16 5221084365) BUN (test code = 19 mg/dL 7-23 3445897423) GLUCOSE (test code = 120 mg/dL 70-110 H [id number]) CREATININE (test code = 1.15 mg/dL 0.5-1.04 H 7163022190) TOTAL BILI (test code = 0.9 mg/dL 0.1-1.6 0135697360) CALCIUM (test code = 8.9 mg/dL 8.6-10.6 6523729418) T PROTEIN (test code = 6.6 g/dL 6.3-8.2 9463322055) ALBUMIN (test code = 4.0 g/dL 3.5-5 4955377207) ALK PHOS (test code = 73 U/L 34-122 8891278222) ALTv (test code = 18 U/L 5-35 1742-6) AST(SGOT) (test code = 31 U/L 13-40 9658371907) eGFR (test code = mL/min/1.73m2 1239604811) KYLE (test code = KYLE) Association of [...] tests). Lab Interpretation Abnormal (test code = 85729-4) [facility]. METABOLIC PANEL (53429)2022-02-11 05:33:21 Test Item Value Reference Range Interpretation Comments NA (test code = 137 mmol/L 135-145 4347563006) K (test code = 4.3 mmol/L 3.5-5.0 6303394276) CL (test code = 103 mmol/L 98-108 4333283545) CO2 TOTAL (test code = 25 mmol/L 23-31 9428872672) AGAP (test code = 2-16 0475800278) BUN (test code = 19 mg/dL 7-23 6260848305) GLUCOSE (test code = 120 mg/dL 70-110 H 5436835053) CREATININE (test code = 1.15 mg/dL 0.50-1.04 H 8384444429) TOTAL BILI (test code = 0.9 mg/dL 0.1-1.0 7172928207) CALCIUM (test code = 8.9 mg/dL 8.6-10.6 2413135475) T PROTEIN (test code = 6.6 g/dL 6.3-8.2 4653601407) ALBUMIN (test code = 4.0 g/dL 3.5-5.0 6819127052) ALK PHOS (test code = 73 U/L 34-122 2555193322) ALTv (test code = 18 U/L 5-35 2-6) AST(SGOT) (test code = 31 U/L 13-40 0071148431) eGFR (test code = mL/min/1.73m2 5312361381) KYLE (test code = KYLE) Association of [...] tests). Lab Interpretation Abnormal (test code = 14557-2) [facility] [id number] 05:33:21 Test Item Value Reference Range Interpretation [...] tions. Lab Interpretation (test Normal code = 63598-7) [facility] BHWY6284-26-11 05:14:37 Test Item Value Reference Range Interpretation [...] RDW-SD (test code = 47.9 fL 39-49.9 61139-0) RDW-CV (test code = 14.9 % 12-15.5 788-0) PLT (test code = See_Comment L [Automated 777-3) message] The sy stem which generated this result transmitted reference range : 166 - 358 10*3/ ?L. The reference r abbey was not used to interpret this result as normal/abnormal . MPV (test code = 9.1 fL 9.5-12.9 L 20670-0) NRBC/100 WBC (test See_Comment [Automat ed code = 1866142851) message] The system which generated this result transmitted reference range : 0.0 - 10.0 /100 WBCs. The refer ence range was not u sed to interpret th is result as normal/abnormal . NRBC x10^3 (test code See_Comment [Auto mated = 2702676334) message] The s ystem which generated this result transmitted reference range : 10*3/?L. The reference range was not used to interpret this result as normal/abnormal . GRAN MAT (NEUT) % 78.5 % (test code = 770-8) IMM GRAN % (test code 0.20 % = 2233828193) LYMPH % (test code = 11.6 % 736-9) MONO % (test code = 8.4 % 5905-5) EOS % (test code = 1.1 % 713-8) BASO % (test code = 0.2 % 706-2) GRAN MAT x10^3(ANC) 3.45 10*3/uL 1.88-7.09 (test code = 9100227396) IMM GRAN x10^3 (test 0-0.06 code = 1080869530) LYMPH x10^3 (test code 0.51 10*3/uL 1.32-3.29 L = 731-0) MONO x10^3 (test code 0.37 10*3/uL 0.33-0.92 = 742-7) EOS x10^3 (test code = 0.05 10*3/uL 0.03-0.39 711-2) BASO x10^3 (test code 0.01-0.07 = 704-7) Lab Interpretation Abnormal (test code = 37854-9) [facility] Coronavirus 2019 Ahomxkf0908-19-98 18:08:00 Test Item Value Reference Range Interpretation [...] det ection of nucleic acids f rom jrbDVFK-JeJ-9 v irus and diagnosis of SA RS-CoV-2 virusinfection. It is an Emergency Use Authorization ( EUA) testauthorized by the U.S. FDA. BASIC METABOLIC GJQVY2626-76-55 09:37:00 Test Item Value Reference Range Interpretation [...] = 9.0 mg/dL 8.0-10.5 N CA) PROTHROMBIN QTWD1239-43-74 09:32:00 Test Item Value Reference Range Interpretation [...] (to prevent recurrent infar ct). 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 [facility] - XR CHEST 1 [id number] 00[facility]00:00 [facility] 1955 Sex: F FAX: Carmenza Olivera [phone] [place]: St: ADM FAX: Mike Scales MD [phone] FAX: Bahman Chopra [phone] Name: MARJAN FLEMING [facility] : 1955 Age/S: 66/F [address] [place] [address] Unit #: [id number] Loc: [place] [address] Phys: Bahman Chopra [facility] Acct: [id number] Dis Date: Status: ADM IN PHONE #: [phone] Exam Date: 06/17/2021 1320 FAX #: [phone] Reason: WATCHMAN EXAMS: CPT CODE: [id number] XR CHEST 1 V 70987 PROCEDURE INFORMATION: Exam: XR Chest Exam date [...] Chopra Technologist: RT Taylor(R) Trnscrd Date/Time/By: 06/17/2021 (6749) : By: IselaKWStorm Orig Print D/T: S: 06/17/2021 (6851) PAGE 1 Signed ReportCOVID 19 Asymptomatic IH [id number] 12:29:00 Test Item Value Reference Range Interpretation [...] high or waivedcomplexit y tests. BASIC METABOLIC UAOMR2304-70-08 11:37:00 Test Item Value Reference Range Interpretation [...] code = 9.0 mg/dL 8.0-10.5 N CA) PMDWMIURWA4899-35-60 11:37:00 Test Item Value Reference Range Interpretation Comments PREALBUMIN (test code = PREALB) 24.3 mg/dL 16.0-40.0 N PROTHROMBIN GKSS2588-78-34 11:03:00 Test Item Value Reference Range Interpretation [...] (to prevent recurrent infar ct). CBC W/AUTO MUPW3003-76-90 10:59:00 Test Item Value Reference Range Interpretation [...] 0.0-0.1 N NRBC#) - XR CHEST 2 [id number] 00:00:00 [facility] : 1955 Sex: F FAX: RobinJasmeetUrmilalinda Danielanh Kristen [phone] [place]: St: PRE FAX: Mike Scales MD [phone] Name: MARJAN FLEMING [facility] : 1955 Age/S: 66/F [address] [place] [address] Bl Unit #: [id number] Loc: [place] [address] Phys: Mike Lund MD Acct: [id number] Dis Date: Status: PRE [facility] PHONE #: [phone] Exam Date: 06/16/2021 112 FAX #: [phone] Reason: PREOP EXAMS: CPT CODE: [id number] XR CHEST 2 V 13888 PROCEDURE INFORMATION: Exam: XR Chest Exam date [...] Technologist: Danielle Nix RT(R) Trnscrd Date/Time/By: 06/16/2021 (1133) : By: [email or web address] Orig Print D/T: S: 06/16/2021 (6303) PAGE 1 Signed ReportGastrointestinal pwiep8814-79-61 04:35:05 Test Item Value Reference Interpretation Comments [...] Rotavirus PCR (test Not Detected code = 4019073) Salmonella PCR (test Not Detected code = [...] PCR Not Detected (test code = 7124) [facility] vhtqxul7983-48-46 19:30:47 Test Item Value Reference Range Interpretation Comments Case number (test [id number] code = 2850023) Surgical pathology See link below for PDF report (test code = Lab Report 2255) Result status (test This is Supplemental code = 1446662) Report for [id number] [facility]2021-04-09 16:31:00 Test Item Value Reference Range Interpretation Comments POC Activated Clotting Time (test code 153 s = POC Activated Clotting Time) [facility]inteEauzgzdMQUEYXXARO4186-86-94 16:31:00 Test Item Value Reference Range Interpretation Comments POC Activated Clotting Time (test code 153 s = POC Activated Clotting Time) [facility]inteQosztguQISGWDUVRX6730-41-54 16:31:00 Test Item Value Reference Range Interpretation Comments POC Activated Clotting Time (test code 153 s = POC Activated Clotting Time) [facility]inteCncdjwqLMBGDYCPUW7858-31-63 16:31:00 Test Item Value Reference Range Interpretation Comments POC Activated Clotting Time (test code 153 s = POC Activated Clotting Time) [facility] PointeYymkjriQFPCGWGHAO9869-32-54 16:31:00 Test Item Value Reference Range Interpretation Comments POC Activated Clotting Time (test code 153 s = POC Activated Clotting Time) [facility] PointeMqnoxmkLEINNVUDJB7711-07-36 16:31:00 Test Item Value Reference Range Interpretation Comments POC Activated Clotting Time (test code 153 s = POC Activated Clotting Time) [facility] PointeQuqscasQWORAEVQXI9409-59-13 16:31:00 Test Item Value Reference Range Interpretation Comments POC Activated Clotting Time (test code 153 s = POC Activated Clotting Time) [facility] PointeTsgninaUREZBQZJTY5012-32-27 14:37:00 Test Item Value Reference Range Interpretation Comments POC Activated Clotting Time (test code 454 s = POC Activated Clotting Time) [facility] PointeGeplwxxVCWKIFNMNU1429-44-66 14:37:00 Test Item Value Reference Range Interpretation Comments POC Activated Clotting Time (test code 454 s = POC Activated Clotting Time) [facility] PointeUstztynILXESSXQBY2060-01-79 14:37:00 Test Item Value Reference Range Interpretation Comments POC Activated Clotting Time (test code 454 s = POC Activated Clotting Time) [facility] PointeFdzyemeKMUAQKRNBI2089-26-45 14:37:00 Test Item Value Reference Range Interpretation Comments POC Activated Clotting Time (test code 454 s = POC Activated Clotting Time) [facility] PointeCpdenulEGQUERMWWS8935-90-44 14:37:00 Test Item Value Reference Range Interpretation Comments POC Activated Clotting Time (test code 454 s = POC Activated Clotting Time) [facility] PointeVyjzxydGLVOCQVHCR0538-31-96 14:37:00 Test Item Value Reference Range Interpretation Comments POC Activated Clotting Time (test code 454 s = POC Activated Clotting Time) [facility] PointeUvjirywARWZLMZYKT7921-69-85 14:37:00 Test Item Value Reference Range Interpretation Comments POC Activated Clotting Time (test code 454 s = POC Activated Clotting Time) [facility] PointeZuasczvXGAYKRFNXC9023-62-88 14:13:00 Test Item Value Reference Range Interpretation Comments POC Activated Clotting Time (test code 354 s = POC Activated Clotting Time) [facility] PointeLosvhppOUSONZQPGQ3071-76-12 14:13:00 Test Item Value Reference Range Interpretation Comments POC Activated Clotting Time (test code 354 s = POC Activated Clotting Time) [facility] PointeHdmdbqdNIEPQSGGLE6498-07-02 14:13:00 Test Item Value Reference Range Interpretation Comments POC Activated Clotting Time (test code 354 s = POC Activated Clotting Time) [facility] PointeSyruiyzNZHVCCIKMU0541-34-85 14:13:00 Test Item Value Reference Range Interpretation Comments POC Activated Clotting Time (test code 354 s = POC Activated Clotting Time) [facility] PointeXvtlqldHUBUZONBFL6415-12-27 14:13:00 Test Item Value Reference Range Interpretation Comments POC Activated Clotting Time (test code 354 s = POC Activated Clotting Time) [facility] PointeDzyxslfBNJTFKTREA6983-91-92 14:13:00 Test Item Value Reference Range Interpretation Comments POC Activated Clotting Time (test code 354 s = POC Activated Clotting Time) [facility] PointeTnxxlmwPBFHGIMSGE2371-72-07 14:13:00 Test Item Value Reference Range Interpretation Comments POC Activated Clotting Time (test code 354 s = POC Activated Clotting Time) [facility] RLERGNO8530-23-05 10:37:00Negative (08/29/20 5:37 AM) [facility] MHZBJ9321-94-70 10:37:70722Kleaezbr HermannCHEM PANEL 2020-08-29 10:37:0028[facility]annCHEM DIQRH4364-34-92 10:37:001.01[facility]annCHE[facility] IJTBU7915-91-94 10:37:00017Uajbwwdo [facility]annCHEM GQXBH9986-65-36 10:37:003.8[facility]annCHEM KCKDH4342-21-23 10:37:13021Rjotozgy [facility]annCHEM POCZF1957-32-54 10:37:0028[facility]annCHE[facility] BFRBL4562-64-59 10:37:009.8 [facility]CHE[facility] TPPTE7356-01-46 10:37:0011.8[facility]annCHEM PANEL 2020-08-29 10:37:0059[facility]annCHEM YIPOX7514-16-62 10:37:002.9[facility] PeqlugwMKEBCCTPGG5654-23-99 10:37:006.8[facility] LklehibXJVWVTAZOK9678-79-62 10:37:004.47[facility] FsjvyoeYKNSKWOLDW4709-86-94 10:37:0010.6[facility] TOLWENLEKK8578-25-44 10:37:0034.0[facility] WpqzjdfPKHSENHTMI7501-19-14 10:37:00 76.1[facility] FgcwoirLSAOOOKWIH1048-52-97 10:37:00 Test Item Value Reference Range Interpretation Comments MCH (test code = MCH) 23.8 pg 27.0-31.0 [facility] UrnyjziKGCWIEFBPH5290-30-70 10:37:0031.3[facility]annHEMATOLOGY 2020-08-29 10:37:0018.2[facility] ShfisnxCZWAWMHLGY1842-47-77 10:37:78050Xnhbjaqj WzikubsDPEAHZNWOD0781-81-81 10:37:007.5[facility] TtrudavYEKNKLJUZQ2836-15-78 10:37:00 Test Item Value Reference Range Interpretation Comments PT (test code = PT) 12.8 s 12.0-14.7 [facility] TxgilhiNPHCNMWENB4513-97-38 10:37:00 Test Item Value Reference Range Interpretation Comments INR (test code = INR) 0.97 1 0.85-1.17 [facility] SkefbfbIUIMSZZXNB7985-42-11 10:37:00 Test Item Value Reference Range Interpretation Comments PTT (test code = PTT) 25.0 s 22.9-35.8 [facility] OjxywmsQTDLRTBGIG2800-44-45 10:37:0070.5[facility]annHEMATOLOGY 2020-08-29 10:37:0018.8[facility] BpdjinaGRIOIEBYQR8850-70-34 10:37:009.5[facility] WwvvsvrEILRDLXLZG9121-45-97 10:37:000.9[facility] EbgzwwfZWFZUNNQDK3820-16-43 10:37:000.3[facility] CrgngeaUMAQJSNMNV1015-21-32 10:37:004.8[facility] [place] IKVCXTXEOL1505-11-83 10:37:001.3[facility] YvjgujeTLWYMWWOBY5117-79-20 10:37:000.6 [facility] NzxyjcwSRYEHTDHZN7946-86-91 10:37:000.1[facility]annHEMATOLOGY 2020-08-29 10:37:001+ *ABN*(08/29/20 5:37 AM)[facility] IblmqeqLSPCFQVERO2272-59-91 10:37:00Not Detected (08/29/20 5:37 AM)[facility] HermannBLOOD BANK RESULTS 2020-08-29 10:37:00Negative (08/29/20 5:37 AM)[facility]annCHEM NIEDJ9859-22-44 10:37:49052Zinywlvi HermannCHEM CGAEY5243-60-67 10:37:0028[facility]annCHEM MQQQQ2222-33-69 10:37:001.01[facility]annCHEM DYHSI2696-61-60 10:37:04887 [facility]annCHE[facility] FKLEG8688-65-19 10:37:003.8[facility] HermannCHEM PANEL 2020-08-29 10:37:28805Ugobqgeq HermannCHEM VLDNQ7017-72-34 10:37:0028[facility]annCHEM GGTHY8954-33-60 10:37:009.8[facility]annCHEM NBZSQ5080-26-51 10:37:0011.8[facility]annCHEM TNTMB1778-66-04 10:37:0059[facility]annCHEM ODFQV0272-52-48 10:37:002.9[facility] HfnmsoqQYKPMYEBPH9715-21-94 10:37:006.8 [facility] NysdyryXXTLBXNLNA7859-46-39 10:37:004.47[facility]annHEMATOLOGY 2020-08-29 10:37:0010.6[facility] XumisgoVWQFVAEBAS0483-75-78 10:37:0034.0[facility] DnemvdhKXMRNPGPHI7807-19-73 10:37:0076.1[facility] IsrvuknEPGLKPDXEV6341-63-07 10:37:00 Test Item Value Reference Range Interpretation Comments MCH (test code = MCH) 23.8 pg 27.0-31.0 [facility] XdelldmSTBYISXOXQ1649-01-58 10:37:0031.3[facility] HermannHEMATOLOGY 2020-08-29 10:37:0018.2[facility] JkvdvqiIJOSHQCUZI8650-86-64 10:37:86694Qyhjyeim YgiwlfzOYAIEICQSW6669-94-50 10:37:007.5[facility] AueiftqXNPHNCKTKR7028-37-35 10:37:00 Test Item Value Reference Range Interpretation Comments PT (test code = PT) 12.8 s 12.0-14.7 [facility] CtdoiuxIHFULOPWBT7317-62-33 10:37:00 Test Item Value Reference Range Interpretation Comments INR (test code = INR) 0.97 1 0.85-1.17 [facility] TdttuemNQVGYAEIIN5322-48-93 10:37:00 Test Item Value Reference Range Interpretation Comments PTT (test code = PTT) 25.0 s 22.9-35.8 [facility] QppgcefRGLHQWOIAV7072-34-41 10:37:0070.5[facility]annHEMATOLOGY 2020-08-29 10:37:0018.8[facility] VgijfipKRZJDYYRUP9796-17-69 10:37:009.5[facility] PyfbusiTXAZKDMBZL0648-82-91 10:37:000.9[facility] EmmioxmDLQUXNPELO0320-64-44 10:37:000.3[facility] XjhuonbWILTEKMNCZ3785-98-09 10:37:004.8[facility] JSLTSITYLV8655-53-98 10:37:001.3[facility] QorswjqENURTFXZYU3337-84-89 10:37:000.6 [facility] XuwjjxmDADPMTPUXX2546-23-73 10:37:000.1[facility]annHEMATOLOGY 2020-08-29 10:37:001+ *ABN*(08/29/20 5:37 AM)[facility] BryegqjSPYTACOWJF7638-57-59 10:37:00Not Detected (08/29/20 5:37 AM)[facility]annBLOOD BANK RESULTS 2020-08-29 10:37:00Negative (08/29/20 5:37 AM)[facility]annCHEM YDIEK1525-57-05 10:37:56005Uvofvbkq HermannCHEM INPIO8769-03-41 10:37:0028[facility]annCHEM UNDSH9999-10-81 10:37:001.01[facility]annCHEM MUJJN7187-18-41 10:37:08592 [facility]annCHE[facility] XBNIY4858-09-46 10:37:003.8[facility] HermannCHEM PANEL 2020-08-29 10:37:69999Hnnehiiw HermannCHEM HIJVQ0616-73-16 10:37:0028[facility] HermannCHEM QTMEK0476-76-09 10:37:009.8[facility] HermannCHEM BQNNH8131-05-75 10:37:0011.8[facility] HermannCHEM OSKSV3108-05-29 10:37:0059[facility]annCHEM INPJA6957-92-34 10:37:002.9[facility] EblzppuXDYUIFIRWZ9979-00-66 10:37:006.8 [facility] LsvxzkaJHFGBKTHBD2616-67-12 10:37:004.47[facility]annHEMATOLOGY 2020-08-29 10:37:0010.6[facility] MhgkhgcEMMDNMXUPL0919-06-49 10:37:0034.0[facility] WzpmxhbWBBJNGPEME3435-78-13 10:37:0076.1[facility] DrgqnhiEUQELGRENW9255-49-01 10:37:00 Test Item Value Reference Range Interpretation Comments MCH (test code = MCH) 23.8 pg 27.0-31.0 [facility] SlewpwqTMRQRRRYKB3156-42-29 10:37:0031.3[facility]annHEMATOLOGY 2020-08-29 10:37:0018.2[facility] RcmekovHXBRLRBMWO5328-43-59 10:37:88298Xkbculjh WflkusbGDAGGVLUCI5391-59-75 10:37:007.5[facility] BssagzqBUEMVBDKXR2408-11-90 10:37:00 Test Item Value Reference Range Interpretation Comments PT (test code = PT) 12.8 s 12.0-14.7 [facility] WzzwryzXUERVBRAOM9535-95-10 10:37:00 Test Item Value Reference Range Interpretation Comments INR (test code = INR) 0.97 1 0.85-1.17 [facility] GgcglfqYGMVPPRZPL0859-53-56 10:37:00 Test Item Value Reference Range Interpretation Comments PTT (test code = PTT) 25.0 s 22.9-35.8 [facility] LyzdjvxOBDRLPRUZK9047-05-74 10:37:0070.5[facility] HermannHEMATOLOGY 2020-08-29 10:37:0018.8[facility] TinqanyKNPDEJRRHN7905-38-44 10:37:009.5[facility] ZlocropMVPFOEALKE8137-09-23 10:37:000.9[facility] MtpsbgsYMJSNDKREA7985-35-17 10:37:000.3[facility] YzackagXYQOKCZUMM5442-27-33 10:37:004.8[facility] EMXEVJUIJB3790-48-80 10:37:001.3[facility] NdudfrwQOUPYNJMCG7404-24-70 10:37:000.6 [facility] SyfhivrJKLXQMLRWR9241-69-76 10:37:000.1[facility]annHEMATOLOGY 2020-08-29 10:37:001+ *ABN*(08/29/20 5:37 AM)[facility] YyxcqljNFVFPNMGYF8545-53-00 10:37:00Not Detected (08/29/20 5:37 AM)[facility]annBLOOD BANK RESULTS 2020-08-29 10:37:00Negative (08/29/20 5:37 AM)[facility]annCHEM MZGLC5334-96-89 10:37:00661Ojfztmym [facility]annCHEM VFBRG5810-14-05 10:37:0028[facility]annCHEM VRSXW0585-96-11 10:37:001.01[facility]annCHEM HWMWL5325-77-04 10:37:08937 [facility]annCHE[facility] UITAD8966-94-46 10:37:003.8[facility] HermannCHEM PANEL 2020-08-29 10:37:39315Ppxlzgwd HermannCHEM XNVZZ6895-33-78 10:37:0028[facility] HermannCHEM AOEXG3780-53-01 10:37:009.8[facility]annCHEM EZGOU6134-67-52 10:37:0011.8[facility] HermannCHEM JITUZ9006-77-34 10:37:0059[facility]annCHEM SKDCJ1196-20-87 10:37:002.9[facility] RdatnufIMAKGRGSQH3338-37-42 10:37:006.8 [facility] HwijihrNVCKIEMPJQ1266-71-89 10:37:004.47[facility]annHEMATOLOGY 2020-08-29 10:37:0010.6[facility] JkpuskzQYGRVVSSLV9011-81-25 10:37:0034.0[facility] KjovatfAHSFZQRXMN5170-46-82 10:37:0076.1[facility] ZdglyhhYRJPBYULMW2886-10-05 10:37:00 Test Item Value Reference Range Interpretation Comments MCH (test code = MCH) 23.8 pg 27.0-31.0 [facility] SepgswyZXRJYZHEPC3280-26-80 10:37:0031.3[facility] HermannHEMATOLOGY 2020-08-29 10:37:0018.2[facility] TllciqaOAXHRDDEXU2835-29-06 10:37:12726Oymbgvem VnyqndlICWTAGIBVP5168-85-85 10:37:007.5[facility] BcnkertBOUNRYNBMQ0399-46-19 10:37:00 Test Item Value Reference Range Interpretation Comments PT (test code = PT) 12.8 s 12.0-14.7 [facility] RxeiliyJZUDEWONAE8972-00-75 10:37:00 Test Item Value Reference Range Interpretation Comments INR (test code = INR) 0.97 1 0.85-1.17 [facility] IhqqyfcDORZQHTTXQ3774-58-14 10:37:00 Test Item Value Reference Range Interpretation Comments PTT (test code = PTT) 25.0 s 22.9-35.8 [facility] PuzxnppOZXDLWEKAU1045-22-65 10:37:0070.5[facility]annHEMATOLOGY 2020-08-29 10:37:0018.8[facility] VeydcddXNMDNHETUU0073-14-13 10:37:009.5[facility] ThcyenqWPGMDBCDQF4942-22-56 10:37:000.9[facility] WtycgbgCRMJGVWMIR6004-71-67 10:37:000.3[facility] PawpnxdCKUGVKVGCU3967-98-21 10:37:004.8[facility] Amrty HRTKSWTMMA6970-16-91 10:37:001.3[facility] HejofxaOQAFFJDPNI8213-24-13 10:37:000.6 [facility] NyciujjODJXLTWTKA7197-03-11 10:37:000.1[facility]annHEMATOLOGY 2020-08-29 10:37:001+ *ABN*(08/29/20 5:37 AM)[facility] NhootpsDJVZYPLTLV8166-66-08 10:37:00Not Detected (08/29/20 5:37 AM)[facility]annBLOOD BANK RESULTS 2020-08-29 10:37:00Negative (08/29/20 5:37 AM)[facility]annCHEM PTTHW6680-64-85 10:37:54749Vetkyofo HermannCHEM MQYGL3877-00-07 10:37:0028[facility]annCHEM INGSB7172-97-59 10:37:001.01[facility]annCHEM LZZWD8254-37-56 10:37:43436 [facility]CHE[facility] ORBJY0831-36-46 10:37:003.8[facility]annCHEM PANEL 2020-08-29 10:37:48341Yvbivvxa HermannCHEM JDYHE9732-87-89 10:37:0028[facility]annCHEM UOYCG7110-82-40 10:37:009.8[facility] HermannCHEM DFTVS6491-13-72 10:37:0011.8[facility] HermannCHEM UIVLS2296-64-03 10:37:0059[facility]annCHEM OILBC0248-97-66 10:37:002.9[facility] UtktiduHCAUIPTHLL5332-50-45 10:37:006.8 [facility] SolxlpfKZDWKFLITA1171-38-54 10:37:004.47[facility]annHEMATOLOGY 2020-08-29 10:37:0010.6[facility] MkviaepXYKOUHNFWV8192-28-90 10:37:0034.0[facility] UiyzifxSVFAZBGTGG8900-80-03 10:37:0076.1[facility] CekwatmMVQLOIGFSR4744-32-64 10:37:00 Test Item Value Reference Range Interpretation Comments MCH (test code = MCH) 23.8 pg 27.0-31.0 [facility] ZlttbyyVVFIFDIFCI9810-35-91 10:37:0031.3[facility]annHEMATOLOGY 2020-08-29 10:37:0018.2[facility] LmdihdnYWQGYRVJBH1007-84-76 10:37:83241Sbtuzxfa ApazjlvUNQPWDFKPV4078-92-42 10:37:007.5[facility] EtopdncDTVGSZCHNF4223-78-84 10:37:00 Test Item Value Reference Range Interpretation Comments PT (test code = PT) 12.8 s 12.0-14.7 [facility] NygzapxTYINTONMMK8193-73-82 10:37:00 Test Item Value Reference Range Interpretation Comments INR (test code = INR) 0.97 1 0.85-1.17 [facility] TpxvrrsKJOUEKNTPT6104-48-23 10:37:00 Test Item Value Reference Range Interpretation Comments PTT (test code = PTT) 25.0 s 22.9-35.8 [facility] ZihhdojUJPRGGLVPF7249-78-00 10:37:0070.5[facility]annHEMATOLOGY 2020-08-29 10:37:0018.8[facility] KekudrnEUUSBLEGWX3772-61-49 10:37:009.5[facility] ElcqnxtANCUROORKT5897-19-74 10:37:000.9[facility] JoevaacRGMDKLFXWJ6081-34-13 10:37:000.3[facility] ObsuudqJNOAXBXYYI6872-04-27 10:37:004.8[facility] [place] [facility] HCUGPMLYZY1916-83-04 10:37:001.3[facility] BzqnnliYYNDDKILGK6845-58-53 10:37:000.6 [facility] YesqeohZHNHVVAELY0987-76-02 10:37:000.1[facility]annHEMATOLOGY 2020-08-29 10:37:001+ *ABN*(08/29/20 5:37 AM)[facility] ScuywonSIMJWASURO6433-41-79 10:37:00Not Detected (08/29/20 5:37 AM)[facility] RESULTS 2020-08-29 10:37:00Negative (08/29/20 5:37 AM)[facility]annCHEM DEIFB6875-97-90 10:37:42653Qoigyraz HermannCHEM VELKX0165-23-97 10:37:0028[facility]annCHEM HRHLK9830-65-19 10:37:001.01[facility]annCHEM ZWGCS5581-28-81 10:37:61273 [facility]CHE[facility] TGNQE2752-44-35 10:37:003.8[facility]annCHEM PANEL 2020-08-29 10:37:18158Chxugfke HermannCHEM RMUBY6505-44-72 10:37:0028[facility]annCHEM HYLTS2776-16-42 10:37:009.8[facility]annCHEM IZDFF3759-57-82 10:37:0011.8[facility]annCHEM WBYPO7951-80-30 10:37:0059[facility]annCHEM TEBGL7572-29-06 10:37:002.9[facility] ZfadqvaTUKWLFZVWP2956-67-60 10:37:006.8 [facility] TedqopbBNMZAUHGTD4980-83-87 10:37:004.47[facility]annHEMATOLOGY 2020-08-29 10:37:0010.6[facility] YftwudgERGJDCASOC9924-05-89 10:37:0034.0[facility] CqmmuiwUFRWMVNJFQ1885-81-00 10:37:0076.1[facility] NjupehoFHBWBCOZBJ3069-94-28 10:37:00 Test Item Value Reference Range Interpretation Comments MCH (test code = MCH) 23.8 pg 27.0-31.0 [facility] YdvpniiMBWZYPFIFD1772-90-16 10:37:0031.3[facility] HermannHEMATOLOGY 2020-08-29 10:37:0018.2[facility] AnxuftiPNWRHURWBB5212-96-39 10:37:34676Ipbmiuno BpwhmvjTYYYCXHKVW8041-87-92 10:37:007.5[facility] NduguboCLZHCLRBKS2789-15-87 10:37:00 Test Item Value Reference Range Interpretation Comments PT (test code = PT) 12.8 s 12.0-14.7 [facility] McnrkttCWWLRPMPZT1782-16-77 10:37:00 Test Item Value Reference Range Interpretation Comments INR (test code = INR) 0.97 1 0.85-1.17 [facility] IybmiafHXVTWIFLVW6622-59-92 10:37:00 Test Item Value Reference Range Interpretation Comments PTT (test code = PTT) 25.0 s 22.9-35.8 [facility] KngsvliRYCCCRZFUV4036-93-48 10:37:0070.5[facility] HermannHEMATOLOGY 2020-08-29 10:37:0018.8[facility] IspikwdHNBKILIBOX3396-89-92 10:37:009.5[facility] WeqtoztXLQBTZLNJL7136-52-99 10:37:000.9[facility] UxhmpwrSTRHROWSAB6310-63-39 10:37:000.3[facility] AdkoquxLSBHYJFIBP5681-18-73 10:37:004.8[facility] [place] FSVIYUNNDY1533-42-45 10:37:001.3[facility] RzkaujaDNVNITTAMA1169-04-90 10:37:000.6 [facility] DorozwiBEIPUVRXME1681-83-20 10:37:000.1[facility] HermannHEMATOLOGY 2020-08-29 10:37:001+ *ABN*(08/29/20 5:37 AM)[facility] QnylzgdBCYVCYTPEH7954-58-35 10:37:00Not Detected (08/29/20 5:37 AM)[facility]annBLOOD BANK RESULTS 2020-08-29 10:37:00Negative (08/29/20 5:37 AM)[facility] HermannCHEM HAXSP8331-06-77 10:37:91592Tnzwrolk HermannCHEM TKKBN3986-98-76 10:37:0028[facility] HermannCHEM CEEYB1530-81-65 10:37:001.01[facility] HermannCHEM HHLJQ6568-53-08 10:37:47145 [facility]annCHEM WZEXL8821-85-37 10:37:003.8[facility] HermannCHEM PANEL 2020-08-29 10:37:89722Fabrftkk HermannCHEM IADTV5206-45-46 10:37:0028[facility] HermannCHEM ZUJTZ2418-45-49 10:37:009.8[facility] HermannCHEM JSYTD1661-23-70 10:37:0011.8[facility] HermannCHEM CUZPA5158-23-27 10:37:0059[facility] HermannCHEM YYPCY1344-33-05 10:37:002.9[facility] TvndojuRPPHLZNAUM7866-16-54 10:37:006.8 [facility] NqtoyfpHWAIKWCVCO5536-15-04 10:37:004.47[facility] HermannHEMATOLOGY 2020-08-29 10:37:0010.6[facility] FaklbijDXQMTTWVRT8799-12-20 10:37:0034.0[facility] RwxetvqYYQBHGOTWB8317-74-43 10:37:0076.1[facility] CkapnefGYOTTYMXRQ9382-89-95 10:37:00 Test Item Value Reference Range Interpretation Comments MCH (test code = MCH) 23.8 pg 27.0-31.0 [facility] QmuarqpUSQXPDQMXN1354-76-27 10:37:0031.3[facility] HermannHEMATOLOGY 2020-08-29 10:37:0018.2[facility] DxwdgguPTCZRAMONF1683-36-97 10:37:04837Tyjbylah UqxrfvaIXRVQUWAWI0955-44-25 10:37:007.5[facility] SriabsnVVZXRQQBVL8906-76-89 10:37:00 Test Item Value Reference Range Interpretation Comments PT (test code = PT) 12.8 s 12.0-14.7 [facility] CsczwipZMEZDMGANQ3284-94-21 10:37:00 Test Item Value Reference Range Interpretation Comments INR (test code = INR) 0.97 1 0.85-1.17 [facility] GulpyybEMAPATMLKD0656-99-92 10:37:00 Test Item Value Reference Range Interpretation Comments PTT (test code = PTT) 25.0 s 22.9-35.8 [facility] ZsnccdsZQKTXWLVHA8259-23-42 10:37:0070.5[facility] HermannHEMATOLOGY 2020-08-29 10:37:0018.8[facility] QeeqobjLEEVJPMDFK2021-40-64 10:37:009.5[facility] WejkareYHBMYXOCJZ5332-30-27 10:37:000.9[facility] EfpwicwXYSYYQCUNN9905-70-80 10:37:000.3[facility] CxcdvymJNWRUKOWCB5513-76-56 10:37:004.8[facility] Marty GTZOZWOXKS7334-66-51 10:37:001.3[facility] WqzcdxpIHEQJBUVBA2334-47-41 10:37:000.6 [facility] FaplwopGTKNTCMXIE2873-72-72 10:37:000.1[facility] HermannHEMATOLOGY 2020-08-29 10:37:001+ *ABN*(08/29/20 5:37 AM)[facility] QpqgfxkVOGCNRFQSY7768-91-53 10:37:00Not Detected (08/29/20 5:37 AM)[facility]CHLAMYDIA, GC, TV,PCR, IN JOREW6002-85-28 15:38:00 Test Item Value Reference Range Interpretation Comments FT (test code = CHTR) Not detected (qualifier Not Detected N value) FT (test code = Not detected (qualifier Not Detected N NGONO) value) FT (test code = TRVG) Not detected (qualifier Not Detected N value) [facility] WITH PCUGPMGODWT2978-35-08 10:57:00 Test Item Value Reference Range Interpretation Comments Color (test code = UCOLR) Dk. Yellow Clarity (test code = UCLAR) Hazy Glucose (test code = UGLUC) NEGATIVE NEGATIVE N Bilirubin (test code = UBILI) NEGATIVE NEGATIVE N Ketones (test code = UKET) NEGATIVE NEGATIVE N Specific [place] (test code = 1.025 1.005-1.030 A USPGR) [...] None Seen None Seen N URCRYS) [facility] Notes Date/Time Note Provider Source 2021-08-05 14:08:00-00:00 [id number] [place] [address] PATIENT NAME: MARJAN FLEMING ADMIT DATE: 08/05/21 ACCOUNT NO: [id number] ROOM NO: AGE: 66 REPORT TYPE: eTRANSESOPHAGEAL ECHO REPORT SEX: F ADMITTING PHYSICIAN: ATTENDING PHYSICIAN:Mike Lund MD *[place] [address] Transesophageal Echocardiogram Patient: Marjan Fleming Study Date: 08/05/2021 BP: 158 / 92 Location: [facility] URN: [id number] : 1955 Age: 66 Height: / Gender: F Weight: / BMI/BSA: / *Ordering Physician: * Mike Lund *Interpreting Physician: * Ashely Mckeon MD *Equipment Maintenance Supervisor: * InterianoReyna parissa Indications: POST WATCHMAN. Study data: Consent: The [...] benzocaine spray. A transesophageal probe (SN: [id number]) was inserted by the attending filter changing technician without difficulty. L ocation: CV PREP. Patient [...] Atrial septum: No defect or patent foramen oval e is identified. Aortic valve: The valve is [...] benzocaine spray. A transeso phageal probe (SN: [id number]) was inserted by the attending cardiolog ist [...] PATIENT NAME: MARJAN FLEMING 1 2021-06-24 11:18:00-00:00 [id number] [place] [address] PATIENT NAME: MARJAN FLEMING ADMIT DATE: 06/17/21 ACCOUNT NO: [id number] ROOM NO: ADDIS AGE: 66 REPORT TYPE: eTRANSESOPHAGEAL ECHO REPORT SEX: F ADMITTING PHYSICIAN:Mike Lund MD ATTENDING PHYSICIAN:Mike Lund MD *[address] [place] [address] Transesophageal Echocardiogram for Watchdev Patient: Marjan Fleming Study Date: 06/17/2021 BP: Location: [facility] URN: [id number] 2647 : 1955 Age: 66 Height: / [...] setup: The patient was brought to the [facility] in the fasting state.Intravenous access was obtained. Surface E CG leads, blood pressure measurements, and pulse oximetric signals were m onitored. Sedation. Sedation was administered by anesthesiology samreen rodas. Transesophageal echocardiography was performed. A transesophagea l probe was inserted by the anesthesiologist. Images were obtained using a [employer] cardiac ultrasound machine. Location: Catheterization laboratory. Christian woodruff completion: The patient tolerated the procedure well. There were no complications. Findings Conclusions Summary: PATIENT NAME: MARJAN FLEMING 7 1. Study data: Transesophageal Echocardiogram fo r Watchman. 2. Procedure narrative: Transesophageal echocard iography was performed. A transesophageal probe was inserted by the dayton sthesiologist. Images were obtained using a [employer] cardiac ultrasound mac dalton. Impressions: Patient with [...] stable. Right groin suture removed by this SPRAY DRIER OPERATOR. No infect ion, bleeding, or hematoma. Dermabond applied and intact. Patient was provided with post-Watchman discharg e instructions. Patient is to follow up with PCP and filter changing technician in 1 t o 2 weeks post discharge. Patient is to follow up with filter changing technician for th e 45-day WESLEY, and for anticoagulation recommendation. Prepared and electronically signed by Ashely Mckeon MD 06/24/2021 11:18 Electronically Signed by Mike Lund MD on at 1118 PATIENT NAME: MARJAN FLEMING 7 2021-06-17 18:10:00-00:00 [id number] [place] [id number] PATIENT NAME: MARJAN FLEMING ADMIT DATE: 06/17/21 ACCOUNT NO: [id number] ROOM NO: ADDIS AGE: 66 REPORT TYPE: eECHOCARDIOGRAM REPORT SEX: F ADMITTING PHYSICIAN:Mike Lund MD ATTENDING PHYSICIAN:Mike Lund MD *[address] [address] Limited Transthoracic Echocardiogram Patient: Marjan Fleming Study Date: 06/17/2021 BP: 117 / 82 Location: [facility] URN: [id number] 2647 : 1955 Age: 66 Height: 64 in / 162.6 cm Gender: F Weight: 210 lb / 95.5 kg BMI/BSA: 36.1 kg/m 2 / 2.12 m 2 *Ordering Physician: * Bahman Chopra *Interpreting Physician: * Kevin Merino MD *Equipment Maintenance Supervisor: * Tiarra Loja Indications: Post Watchman/Rule out pericardial effusion. Study data: Transthoracic echocardiogram, limite d study. Procedure: Transthoracic echocardiography was performed. Im age quality was adequate. Limited 2D and limited spectral Dopple r. Location: [facility]. Patient status: Outpatient. Study status: Routin [...] MARJAN FLEMING 7 2021-06-17 11:12:00-00:00 [facility] ([facility]) Discharge Summary REPORT#:[id number] REPORT STATUS: Signed DATE:06/17/21 TIME: 1112 PATIENT: MARJAN FLEMING UNIT #: [id number] ROOM/BED: [place] [address] : [birth year] AGE: 67 SEX: F ATTEND: René Lund MD ADM AUTHOR: Bahman Chopra * ALL edits or amendments must be made on the Keego/computer document * PCP PCP Discharge to: home [...] stable. Right groin suture removed by this SPRAY DRIER OPERATOR. No infect ion, bleeding, or hematoma. Dermabond applied and intact. Patient was provided with post-Watchman discharg e instructions. Patient is to follow up with PCP and filter changing technician in 1 to 2 we eks post discharge. Patient is to follow up with filter changing technician for th e 45-day WESLEY, and for [...] breath, lightheadedness, or dizzi ness to the filter changing technician. Dispo: It is medically necessary that patients [...] distress GI: soft, non-tender Extremities: moves all Neuro/COCOA MILL OPERATOR: alert, oriented X 3 Skin: dry Wound/incision: Location: Right groin suture removed by this SPRAY DRIER OPERATOR. No infect ion, bleeding, or hematoma. Dermabond applied and intact. Results Findings/Data: Laboratory Tests: 06/17 06/16 0834 1200 Coagulation Activated Coag Time (74 - 137 SEC) 249 H Serology SARS-CoV-2 Ag (Rapid) (Negative) Negative Treatments Procedures Imaging: Recent Impressions: RADIOLOGY - XR CHEST 2 V 01/25 1120 Report Impression - Status: SIGNED Entered: [...] by Mike Lund MD on 07/14 at 0918 RPT #:[id number] END OF REPORT 2021-06-17 09:43:00-00:00 [id number] [place] [address] PATIENT NAME: MARJAN FLEMING ADMIT DATE: 06/17/21 ACCOUNT NO: [id number] ROOM NO: [facility] AGE: 66 REPORT TYPE: eELECTROCARDIOGRAM REPORT SEX: F ADMITTING PHYSICIAN:Mike Lund MD ATTENDING PHYSICIAN:Mike Lund MD Order: [id number] Test Reason : S/P WATCHMAN Test Date/Time [...] PATIENT NAME: MARJAN FLEMING 7 2021-06-17 08:54:00-00:00 [id number] [address] PATIENT NAME: MARJAN FLEMING ADMIT DATE: 06/17/21 ACCOUNT NO: [id number] ROOM NO: ADDIS AGE: 66 REPORT TYPE: CARDIAC CATHETERIZATION REPORT SEX: F ADMITTING PHYSICIAN:Mike Lund MD ATTENDING PHYSICIAN:Mike Lund MD PROCEDURE DATE: 06/17/2021 PROCEDURE PERFORMED: Left atrial appendage closu re using a 24 mm Watchman FLX closure device. ACCESS: Right femoral vein, 16-Syrian closed wit h jnxbrw-ba-pxdos suture. ICE CREAM MAKER: Mike Lund MD. SECONDARY CATERING SOUS CHEF: Kevin Merino MD. COMPLICATIONS: None. BLEEDING: Less [...] I accessed right femo ral vein, placed 8-Syrian [place] sheath. Subsequently, upgraded to 16-Syrian sheath and gave a partial dose of heparin, then took the SL1 sheat h into the SVC over a wire with [place] needle inside, descended under the fluor oscopy [...] I removed the Watchman sheath and the 16-Syrian sheath and placed czuchh-xk-kxdcy suture for hemostasis, then achieved a good hemo stasis. CONCLUSION: Left atrial appendage closure using a 24 mm Watchman FLX closure PATIENT NAME: MARJAN FLEMING 7 device. Dictated By: Mike Lund MD WT: CATH:GAYLE/RIKY/ALLA Conf#: [id number]/DID#: [id number] Authenticated by Mike Lund MD On 07/01/2021 12:30:01 PM Electronically Signed by Mike Lund MD on at 1230 PATIENT NAME: MARJAN FLEMING 7 2021-06-16 10:36:00-00:00 [id number] [place] [address] PATIENT NAME: MARJAN FLEMING ADMIT DATE: ACCOUNT NO: [id number] ROOM NO: AGE: 66 REPORT TYPE: eELECTROCARDIOGRAM REPORT SEX: F ADMITTING PHYSICIAN: ATTENDING PHYSICIAN:Mike Lund MD Order: [id number] Test Reason : PREOP Test Date/Time Stamp: [...] AM Referred By: Mike Lund Confirmed by:ARMANDO RIHCARDS MD at 1129 PATIENT NAME: MARJAN FLEMING 7"
[2022-12-19 10:23] LABS: Absolute Lymphocytes (CBC) 0.8 K/uL (0.7-4.9); Hematocrit 32.9 % (36.0-45.0); Lymphocytes % 22.6 % (15.3-44.8); MPV 6.7 fL (7.6-11.3); RBC Red Blood Cell Count 4.01 M/uL (3.86-4.86)
[2022-12-19 10:28] LABS: Protime INR 1.04
[2022-12-19 10:40] LABS: Albumin 3.3 g/dL (3.4-5.0); Bilirubin Direct 0.2 mg/dL (0-0.2); Bilirubin Indirect, Calculated 0.3 mg/dL (0.2-0.8); Bilirubin Total 0.5 mg/dL (0.2-1.0); Magnesium 2.2 mg/dL (1.6-2.4); Potassium 3.3 mEq/L (3.5-5.1); Protein, Total 6.7 g/dL (6.4-8.2); Troponin High Sensitivity 11.2 pg/mL (<58.9)
[2022-12-19] MEDS ORDERED: DIPHENHYDRAMINE 50 MG/ML VIAL ONE (10:42)
[2022-12-19] MEDS ORDERED: PROMETHAZINE INJ 25 MG/ML AMP ONE (10:42)
[2022-12-19] MEDS ORDERED: KETOROLAC 30 MG/ML INJ ONE (10:42)
[2022-12-19] MEDS ORDERED: NA CHLORIDE 0.9% 500 ML ONE (10:42)
--- NOTE | 2022-12-19 11:11 | ER ---
Nurse's Notes [facility] Name: Marjan Kolb Age: 67 yrs Sex: Female : 1955 Arrival Date: 12/19/2022 Time: 08:59 Bed 5 Private MD: Diagnosis: Headache Presentation: 12/19 09:09 Chief complaint: EMS states: Pt d/c from ED last night, states that he did not have a ph ride home so she walked, fell and is now c/o low back pain. Coronavirus screen: Vaccine status: Patient reports receiving the 2nd dose of the covid vaccine. Ebola Screen: No symptoms or risks identified at this time. Initial Sepsis Screen: Does the patient meet any 2 criteria? No. Patient's initial sepsis screen is negative. Does the patient have a suspected source of infection? No. Patient's initial sepsis screen is negative. Risk Assessment: Do you want to hurt yourself or someone else? Patient reports no desire to harm self or others. Onset of symptoms was December 19, 2022. 09:09 Method Of Arrival: EMS: [facility] ph 09:09 Acuity: BLAYNE 4 ph 09:14 Acuity: BLAYNE 3 ph Triage Assessment: 09:15 General: Appears in no apparent distress. comfortable, Behavior is calm, cooperative, ph appropriate for age. Pain: Complains of pain in low back area. Neuro: Level of Consciousness is awake, alert, obeys commands, Oriented to person, place, time, situation. Cardiovascular: Capillary refill < 3 seconds in bilateral fingers Patient's skin is warm and dry. Respiratory: Airway is patent Respiratory effort is even, unlabored. Historical: - Allergies: 09:16 Azithromycin; ph 09:16 Bactrim; ph 09:16 butorphanol; ph 09:16 Fentanyl; ph 09:16 Reglan; ph 09:16 Sulfa (Sulfonamide Antibiotics); ph 09:16 TRIMETHOPRIM; ph - PMHx: 09:16 angina pectoris; Anxiety; Atrial fibrillation; Bipolar disorder; esophageal varicies; ph Hepatitis; HIV positive; Hypertensive disorder; Migraine; panic attack; - Immunization history:: Adult Immunizations unknown. - Social history:: Smoking status: unknown. Screenin:00 [facility] ED Fall Risk Assessment (Adult) History of falling in the last 3 months, ph including since admission Yes- fall prone (multiple falls) (3 pts) Confusion or Disorientation No (0 pts) Intoxicated or Sedated No (0 pts) Impaired Gait Yes (1 pt) Mobility Assist Device Used No (0 pt) Altered Elimination No (0 pt) Score/Fall Risk Level 3 or more points = High Risk Oriented to surroundings, Maintained a safe environment, Provided non-skid footwear, Hourly rounding (assess needs \T\ fall precautionary measures) done. Abuse screen: Denies threats or abuse. Denies injuries from another. Nutritional screening: No deficits noted. Tuberculosis screening: No symptoms or risk factors identified. Assessment: 11:42 Reassessment: Patient appears in no apparent distress at this time. Patient and/or ph family updated on plan of care and expected duration. Pain level reassessed. Patient is alert, oriented x 3, equal unlabored respirations, skin warm/dry/pink. Vital Signs: 09:09 BP 173 / 88; Pulse 51; Resp 18; Temp 97.9; Pulse Ox 96% on R/A; ph 11:41 BP 168 / 78; Pulse 78; Resp 18; Temp 98; Pulse Ox 95% on R/A; ph ED Course: 09:02 Patient arrived in ED. eb 09:05 Rosemary Cespedes FNP-C [facility]. kb 09:05 Jose Shah DO is Attending Physician. kb 09:09 Solange Bennett, ASHLEY is Primary Nurse. ph 09:14 Triage completed. ph 09:17 Arm band placed on Patient placed in an exam room, on a stretcher. ph 10:00 Patient has correct armband on for positive identification. Bed in low position. Call ph light in reach. Side rails up X2. Client placed on continuous cardiac and pulse oximetry monitoring. NIBP monitoring applied. Door closed. Noise minimized. 10:00 Missed attempt(s): 24 gauge in right hand. Bleeding controlled, band aid applied, ph catheter tip intact. Missed attempt(s): 24 gauge in left hand. Bleeding controlled, band aid applied, catheter tip intact. 10:14 Inserted saline lock: 24 gauge in left ,using aseptic technique. middle finger. ph 11:40 No provider procedures requiring assistance completed. IV discontinued, intact, ph bleeding controlled, No redness/swelling at site. Pressure dressing applied. Administered Medications: 10:41 Drug: NS 0.9% IV 500 ml Route: IV; Rate: bolus; Site: left hand; ph 11:43 Follow up: Response: No adverse reaction; IV Status: Completed infusion ph 10:41 Drug: Promethazine IVP 6.25 mg Route: IVP; Site: left hand; ph 11:43 Follow up: Response: No adverse reaction ph 10:41 Drug: Ketorolac IVP 15 mg Route: IVP; Site: left hand; ph 11:43 Follow up: Response: No adverse reaction ph 10:41 Drug: diphenhydrAMINE IVP 12.5 mg Route: IVP; Site: left hand; ph 11:43 Follow up: Response: No adverse reaction ph Medication: 09:18 VIS not applicable for this client. ph Outcome: 11:11 Discharge ordered by . kb 11:40 Discharged to home via wheelchair. ph 11:40 Condition: good 11:40 Discharge instructions given to patient, Instructed on discharge instructions, follow up and referral plans. Demonstrated understanding of instructions, follow-up care. 11:43 Patient left the ED. ph Signatures: Rosemary Cespedes, DIETARY SERVICES DIRECTOR-C DIETARY SERVICES DIRECTOR-Solange Esparza, RN RN ph Jo Ann Huynh
--- NOTE | 2022-12-19 11:12 | EDPHYS ---
Physician Documentation [facility] Name: Marjan Kolb Age: 67 yrs Sex: Female : 1955 Arrival Date: 12/19/2022 Time: 08:59 Bed 5 Private MD: ED Physician Jose Shah HPI: 12/19 09:36 This 67 yrs old Female presents to ER via EMS with complaints of syncope. kb 10:09 The patient has experienced syncope. Onset: The symptoms/episode began/occurred just kb prior to arrival. Duration: This was a single episode. Context: the episode(s) was witnessed, by a bystander, occurred outdoors, occurred while the patient was walking, Just prior to the episode the patient experienced headache. Associated injury: The patient did not suffer any apparent associated injury. Associated signs and symptoms: Pertinent positives: headache, low back pain, shortness of breath. Current symptoms: headache. The patient has not experienced similar symptoms in the past. The patient has been recently seen at the [facility] Emergency Department, today. Pt reports she was seen earlier today for shortness of breath and headache then discharged home. States she was started walking home and had a syncopal episode. Reports a bystander saw her and called 911. EMS brought her back. c/o low back pain, headache and shortness of breath that have not resolved since previous visit. EKG, labs and chest x-ray completed this morning and reviewed. . Historical: - Allergies: 09:16 Azithromycin; ph 09:16 Bactrim; ph 09:16 butorphanol; ph 09:16 Fentanyl; ph 09:16 Reglan; ph 09:16 Sulfa (Sulfonamide Antibiotics); ph 09:16 TRIMETHOPRIM; ph - PMHx: 09:16 angina pectoris; Anxiety; Atrial fibrillation; Bipolar disorder; esophageal varicies; ph Hepatitis; HIV positive; Hypertensive disorder; Migraine; panic attack; - Immunization history:: Adult Immunizations unknown. - Social history:: Smoking status: unknown. ROS: 10:06 Constitutional: Negative for fever, chills, and weight loss. kb 10:06 Respiratory: Positive for shortness of breath. 10:06 Back: Positive for pain at rest, pain with movement. 10:06 Neuro: Positive for headache, syncope. 10:06 All other systems are negative. Exam: 09:36 Constitutional: This is a well developed, well nourished patient who is awake, alert, kb and in no acute distress. Head/Face: Normocephalic, atraumatic. ENT: Moist Mucous membranes Cardiovascular: Regular rate and rhythm with a normal S1 and S2. No gallops, murmurs, or rubs. No pulse deficits. Respiratory: Respirations even and unlabored. No increased work of breathing. Talking in full sentences Abdomen/GI: Soft, non-tender. No distention Skin: Warm, dry with normal turgor. Normal color. MS/ Extremity: Pulses equal, no cyanosis. Neurovascular intact. Full, normal range of motion. Neuro: Awake and alert, GCS 15, oriented to person, place, time, and situation. Moves all extremities. Normal gait. 09:36 ECG was reviewed by the Attending Physician. Vital Signs: 09:09 BP 173 / 88; Pulse 51; Resp 18; Temp 97.9; Pulse Ox 96% on R/A; ph 11:41 BP 168 / 78; Pulse 78; Resp 18; Temp 98; Pulse Ox 95% on R/A; ph MDM: 09:05 Patient medically screened. 09:37 Data reviewed: vital signs, nurses notes. kb 10:07 Test considered but Not performed: X-ray: chest x-ray considered, but was done at previous visit this morning and was normal. 11:24 Differential Diagnosis: cardiac arrhythmia, idiopathic syncope, vasovagal episode, kb migraine, tension headache. Historians other than the Patient: EMS: [facility]. Counseling: I had a detailed discussion with the patient and/or guardian regarding: the historical points, exam findings, and any diagnostic results supporting the discharge/admit diagnosis, lab results, the need for outpatient follow up, a family practitioner, to return to the emergency department if symptoms worsen or persist or if there are any questions or concerns that arise at home. 11:25 ED course: Pt is nontoxic in appearance, tolerating po intake. Granddaughter called claudia saying she was coming to pick pt up and pt is ready to go home. 12/19 09:12 Order name: Basic Metabolic Panel; Complete Time: 10:48 12/19 09:12 Order name: CBC with Diff; Complete Time: 10:34 12/19 09:12 Order name: Hepatic Function; Complete Time: 10:48 kb 12/19 09:12 Order name: Magnesium; Complete Time: 10:48 kb 12/19 09:12 Order name: Protime (+inr); Complete Time: 10:34 kb 12/19 09:12 Order name: Ptt, Activated; Complete Time: 10:34 kb 12/19 09:12 Order name: Troponin High Sensitivity; Complete Time: 10:48 kb 12/19 09:12 Order name: EKG; Complete Time: 09:13 kb 12/19 09:12 Order name: Cardiac monitoring; Complete Time: 09:34 kb 12/19 09:12 Order name: EKG - Nurse/Tech; Complete Time: 09:34 kb 12/19 09:12 Order name: IV Saline Lock; Complete Time: 10:16 kb 12/19 09:12 Order name: Labs collected and sent; Complete Time: 10:16 kb 12/19 09:12 Order name: NPO; Complete Time: 09:34 kb 12/19 09:12 Order name: O2 Per Protocol; Complete Time: 10:06 kb 12/19 09:12 Order name: O2 Sat Monitoring; Complete Time: 09:34 kb 12/19 09:12 Order name: Orthostatics; Complete Time: 11:21 kb EC:36 Rate is 52 beats/min. Rhythm is regular. QRS [place] is Normal. LA interval is normal at kb 194 msec. QRS interval is normal at 92 msec. QT interval is normal at 489 msec. Administered Medications: 10:41 Drug: NS 0.9% IV 500 ml Route: IV; Rate: bolus; Site: left hand; ph 11:43 Follow up: Response: No adverse reaction; IV Status: Completed infusion ph 10:41 Drug: Promethazine IVP 6.25 mg Route: IVP; Site: left hand; ph 11:43 Follow up: Response: No adverse reaction ph 10:41 Drug: Ketorolac IVP 15 mg Route: IVP; Site: left hand; ph 11:43 Follow up: Response: No adverse reaction ph 10:41 Drug: diphenhydrAMINE IVP 12.5 mg Route: IVP; Site: left hand; ph 11:43 Follow up: Response: No adverse reaction ph Disposition: 13:38 Co-signature as Attending Physician, Jose CHEUNG was immediately available on-site ms3 in the Emergency Department for consultation in the care of the patient. Disposition Summary: 12/19/22 11:11 Discharge Ordered Location: Home kb Condition: Stable kb Diagnosis - Headache kb Followup: kb - With: Emergency Department - When: As needed - Reason: Worsening of condition Followup: kb - With: Private Physician - When: 2 - 3 days - Reason: Recheck today's complaints, Continuance of care, Re-evaluation by your physician Discharge Instructions: - Discharge Summary Sheet kb - Migraine Headache, Ghzi-zb-[id number] kb Forms: - Medication Reconciliation Form kb - Thank You Letter kb - Antibiotic Education kb - Prescription Opioid Use kb - Patient Portal Instructions kb Signatures: Dispatcher [employer] EDRosemary Turner, SIFTER AND MILLER-C JOSE M-Solange Esparza, ASHLEY RN Jose Doherty, DO ms3
[2022-12-19 11:52] VITALS: BP 173/88; TEMP 97.9; O2SAT 96
--- NOTE | 2022-12-20 18:53 | EKG ---
Test Date: 2022-12-19 Test Time: 09:31:39 Warehouse Operator: MEASUREMENT RESULTS: Intervals: Rate: 52 [place]: 194 QRSD: 92 QT: 526 QTc: 489 [place]: P: 81 [place]: 194 QRS: 51 T: -88 INTERPRETIVE STATEMENTS: Sinus bradycardia with premature atrial complexes Left ventricular hypertrophy with repolarization abnormality Abnormal ECG Compared to ECG 12/19/2022 03:06:40 Atrial premature complex(es) now present Sinus rhythm no longer present Sinus arrhythmia no longer present First degree AV block no longer present Electronically Signed On 12-20-22 18:49:04 CDT by Mike Lund
== END 2022-12-19 11:43 | disposition home or self-care (01) ==
LOC: ER 08:59
DX: R51.9 Headache, unspecified (principal); R55 Syncope and collapse; M54.50 Low back pain, unspecified; Z88.1 Allergy status to other antibiotic agents; Z88.2 Allergy status to sulfonamides; Z88.3 Allergy status to other anti-infective agents; Z88.5 Allergy status to narcotic agent; Z88.8 Allergy status to other drugs, medicaments and biological substances
CPT/HCPCS: 85025; 80048; 36415; 83735; 85610; 80076; 85730; 84484; J2550; J1200; J7040; 93005; 96361; 96374; 96375; 99284

== ENCOUNTER 2022-12-27 09:42 | Emergency (ER) | payer OTHER ==
--- OUTSIDE RECORDS SUMMARY | 2022-12-27 10:16 | XMS REPORT | Continuity of Care Document ---
:1955 Author Organization [facility] t Address [address] [place] [address] Care Team Providers Name Role Phone Asked, No Pcp Primary Care Physician Unavailable ELAN LIRA Attending Clinician Unavailable JACKIE LAYTONR Attending Clinician Unavailable SANTIAGO CARDENAS Attending Clinician Unavailable Santiago Sanchez Attending Clinician HOME MATTHEWS Attending Clinician Unavailable Home Santamaria Attending Clinician THERESA HICKMAN Attending Clinician Unavailable Theresa Hickman DO Attending Clinician ANETTE OLEA Attending Clinician Unavailable Anette Olea MD Attending Clinician PAULETTE GRAY Attending Clinician Unavailable Isaac PACPaulette S Attending Clinician UNKNOWN, ATTENDING Attending Clinician Unavailable Robbi Bal Attending Clinician [facility] Attending Clinician Unavailable Isaias Whiteside RN Attending Clinician Unavailable TOMY MARIE Attending Clinician Unavailable Reilly Means MD Attending Clinician Ofe Shields MD Attending Clinician Tomy Marie MD Attending Clinician Doctor Unassigned, [place] Attending Clinician Unavailable Bill GUO Attending Clinician Unavailable Bill Rose Attending Clinician CHARITY MCALLISTER Attending Clinician Unavailable Charity Mcallister MD Attending Clinician GADIEL KOEHLER Attending Clinician Unavailable Mike Lund Attending Clinician Unavailable NIKOLAI REEVES Attending Clinician Unavailable Eliseo Arce MD Attending Clinician Sarai Maharaj NP Attending Clinician [phone] Ashly Pelletier MA Attending Clinician Unavailable Dagoberto Bass MD Attending Clinician [place] Evangelista Attending Clinician Lab, [facility] Pob I Attending Clinician Unavailable Monica Rodas MA Attending Clinician Unavailable Agustina Ortiz MA Attending Clinician Unavailable Rody Maguire RN Attending Clinician Unavailable Kirit Flood MD, V. Attending Clinician BEVERLY LAYTON Attending Clinician Unavailable Caridad MINCEMEAT MAKER, Gloria Attending Clinician Xiao RAMIREZ, Michael Corbin Attending Clinician Unavailable Team, [facility] Attending Clinician UnavailDO PORSHA Newell Attending Clinician Unavailable Rodo JENKINS, Gadiel Attending Clinician Tyrone JENKINS, Eveline Sierra Attending Clinician Stanislav RAMIREZ, Eladio Inman Attending Clinician Unavailable Geraldine SAGLUERO, Leyda Attending Clinician [phone] Selvin RAMIREZ, Stefanie Attending Clinician Unavailable HOME MATTHEWS Admitting Clinician Unavailable ANETTE OLEA Admitting Clinician Unavailable TOMY MARIE Admitting Clinician Unavailable Tomy Marie MD Admitting Clinician Bill GUO Admitting Clinician Unavailable Lacey [place] Kristen Admitting Clinician Unavailable Mike Lund Admitting Clinician Unavailable ELISEO ARCE Admitting Clinician Unavailable DO PORSHA STREETER Admitting Clinician Unavailable Payers Payer Name Policy Type Policy Number Effective Date Expiration Date S gabino [facility] COMMUNITY PL[facility] [id number] 2012 STAR PLUS OON 00:00:00 [facility] [id number] 2019 DUAL COMPLETE HMO 00:00:00 [facility] STAR [id number] 2019 PLUS 00:00:00 MEDICAID [facility] [id number] 2020 00:00:00 [facility] [id number] 2019 HEALTH [place] STAR 00:00:00 [employer] MEDICARE ADV [id number] 2019 2019 00:00:00 00:00:00 Problems Condition Condition Condition Status Onset Resolution Last Treating Co mments Source Name Details Category Date Date Treatment Clinician Date Dyspnea, Dyspnea, Disease Active Unive rs unspecifie unspecifie 02-11 it y of d type d type 00:00: [place] 00 Medical Branch Gastropare Gastropare Disease Active Overview : Methodi sis sis 4-[address] 00:[facility] note l might be different from the original. Added automatic ally from request for surgery [id number] Dysphagia Dysphagia Disease Active Overview: Methodi 4-[address] 00:00: [facility] 00 note l might be different from the original. Added automatic ally from request for surgery [id number] CCL / EPS CCL / EPS Diagnosis [...] N/V [facility] hoxazole 1-25 Clear 00:00: [facility] trimetho DA Active SV [facility] prim 1-25 Clear 00:00: Garcia [facility] codeine DA Active SV N/V [facility] 1-25 Clear 00:00: Garcia [facility] Metoclop Propensi Active [place] ramide ty to 12-12 Health adverse 00:00: reaction 00 s BUTORPHA DRUG Active Unknown-Cmnt Un matt NOL INGREDI 11-25 ity of 00:00: [place] [facility] Butorpha Drug Active Unknown - [...] Hives Univers INGREDI 2-08 ity of 00:00: Medical Branch TRIMETHO DRUG Active Hives Univers [...] HOXAZOLE INGREDI 2- ity of 00:00: [place] [facility] Sulfamet [...] Branch drug Bactrim Bactrim Active [facility] Family History Family Member Diagnosis Comments Start Date Stop Date Source Natural father Diabetes [facility] Natural father Other - see comments [facility] Natural father Coronary Heart Univer sity [facility] Disease [facility] Natural father Hy[facility] father [facility] Natural mother [facility] Social History Social Habit Start Date Stop Date Quantity Comments Source Gender identity 2020-10-06 Identifies as [facility] 15:23:56 female gender Hospital (finding) History SDOH [facility] Alcohol Frequency Hospita l History SDOH [facility] Alcohol Std Drinks Hospit al History SDOH [facility] Sexual orientation [facility] History of Social 2022-08-26 2022-08-[address] function 00:00:00 00:00:00 Hospital Exposure to 2022-04-30 2022-05-10 Yes University of SARS-CoV-2 (event) 00:00:00 10:25:00 [facility] Tobacco use and 2022-02-11 2022-02-11 Former smokeless Uni versity of exposure 00:00:00 00:00:00 tobacco user [facility] Tobacco Comment 2022-02-11 2022-02-11 Smokes approx 1-2 Un iversity of 00:00:00 00:00:00 cigarettes per [facility] day when she Branch smokes Alcohol intake 2020-12-08 2020-12-08 Current drinker [facility] 00:00:00 00:00:00 of [facility] (finding) Cigarettes smoked 2020-09-05 2020-09-[address] current (pack per 00:00:00 00:00:00 [facility] day) - Reported Cigarette 2020-09-05 2020-09-05 [facility] pack-years 00:00:00 00:00:00 Hospital Alcohol Comment 2016-09-23 2016-09-23 rare [facility] 00:00:00 [facility]:00 [facility] History of tobacco 2011-09-29 User of smokeless University of use 00:00:00 tobacco [facility] Sex Ass[birth year] At [birth year] [place] [facility] 00:00:00 00:00:00 Smoking Status Start Date Stop Date Source Ex-smoker 2022-02-11 00:00:00 2022-02-11 00:00:00 [facility] [place] [facility] Medications Ordered Filled Start Stop Current Ordering Indication Dosage Frequency Signature Comments Components Source Medication Medication Date Date Medication? Clinician (SIG) Name Name pelonmarianadinorah Yes [id number] Take one Univers ne-tenofovi 6-12 po daily ity of r alafen 00:00: [place] (DESCOVY) 00 Medical tablet Branch raltegravir Yes [id number] 400mg Take 1 Univers (ISENTRESS) 6-12 tablet by ity of 400 mg 00:00: mouth in [place] tablet 00 the Medical morning Branch and 1 tablet in the evening. DESCOVY Yes [id number] Take one Univers tablet 5-08 po daily ity of 00:00: [place] 00 Medical Branch raltegravir Yes [id number] 400mg Take 1 Univers (ISENTRESS) 5-08 tablet by ity of 400 mg 00:00: mouth in [place] tablet 00 the Medical morning Branch and 1 tablet in the evening. DESCOVY 2022- No [id number] Take one Univers tablet 5-08 06-12 po daily ity of 00:00: 00:00 [place] 00 :00 Medical Branch raltegravir 2022- No [id number] 400mg Take 1 Univers (ISENTRESS) 5-08 06-12 tablet by it y of 400 mg 00:00: 00:00 mouth in [place] tablet 00 :00 the Medical morning Branch and 1 tablet in the evening. emttay Yes [id number] Take one Univers ne-tenofovi 4-04 po daily ity of r alafen 00:00: [place] (DESCOVY) 00 Medical tablet Branch emtricitabi Yes [id number] Take one Univers ne-tenofovi 4-04 po daily ity of r alafen 00:00: [place] (DESCOVY) 00 Medical tablet Branch emtricitabi 2022- No [id number] Take one Univers ne-tenofovi 4-04 05-08 po daily ity of r alafen 00:00: 00:00 [place] (DESCOVY) 00 :00 Medical tablet Branch potassium 2021-05- No 10meq 10 mEq, IV Univers chloride in 07-11 Piggyback, i ty of water 10 20:00: 22:00 ONCE, 1 [place] mEq/100 mL 00 :00 dose, On Medic al RTU 10 mEq [facility] 05/10/22 at 1400, Administer over 60 Minutes, 100 mL magnesium 2021-05 No 800mg 800 mg, Uni vers oxide 07-11 Oral, ity of (MAG-OX 20:00: 19:37 ONCE, 1 [place] 400) tablet 00 :00 dose, On Medi porfirio 800 mg [facility] 05/10/22 at 1400, Routine KCL 2021-05 No 40meq 40 mEq, Univers (KLOR-CON 07-11 Oral, ity of M20) tablet 19:15: 19:37 [place]CE[place] 1 [place] 40 mEq 00 :00 dose, On Medical [facility] 05/10/22 at 1315, JOE hydralAZINE 2021-05 No 10mg 10 mg, Uni vers (APRESOLINE 07-11 Slow IV ity of ) injection 18:45: 18:42 [place] 10 mg 00 :00 ONCE, 1 Medical dose, On [facility] 05/10/22 at 1245, JOE NaCl 0.9% 2021-05 No 1000mL at 999 Uni vers (NS) bolus 07-11 mL/hr, ity of infusion 17:45: 20:00 1,000 mL, [place] 1,000 mL 00 :00 IV Medical Infusion, Branch ONCE, 1 dose, On [facility] 05/10/22 at 1145, JOE cefpodoxime 2021-05- No [id number] 100mg Take 1 Univers 100 mg 2-17 12-25 tablet by ity of tablet 00:00: 05:59 mouth in [place] 00 :00 the [facility] morning Branch and 1 tablet in the evening. Do all this for 7 days. cefpodoxime 2021-05- No [id number] 100mg Take 1 Univers 100 mg 2-17 12-25 tablet by ity of tablet 00:00: 05:59 mouth in [place] 00 :00 the [facility] morning [place] and 1 tablet in the evening. Do all this for 7 days. cefpodoxime 2021-05- No [id number] 100mg Take 1 Univers 100 mg 2-17 [...] Medical ONCE, 1 Branch dose, On [facility] 05/06/22 at 1800, JOE ketorolac 2021-05 No 15mg 15 mg, Unive rs (TORADOL) 2-15 12-15 Slow IV ity of injection 22:00: 22:19 Push, [place] 15 mg 00 :00 ONCE, 1 Medical dose, On Branch [facility] 05/06/22 at 1600, JOE NaCl 0.9% 2021-05- No 1000mL at 999 Uni vers (NS) bolus 2-15 12-15 mL/hr, ity of infusion 22:00: 23:41 1,000 mL, [place] 1,000 mL 00 :00 IV Medical Infusion, Branch ONCE, 1 dose, On [facility] 05/06/22 at 1600, JOE ondansetron 2021-05- No 8mg 8 mg, Slow Univers (ZOFRAN 2-15 12-15 IV Push, ity of (PF)) 21:15: 22:19 ONCE, 1 [place] injection 8 00 :00 dose, On Medi porfirio mg [place] Branch 05/06/22 at 1515, JOE ondansetron 2021-05 Yes [id number] 1-2 U nivers 4 mg tablet 2-15 tablets ity o f 00:00: every 8 [place] 00 hours as Medical needed for Branch nausea benzonatate 2021-05 Yes [id number] 200mg Take 1 Univers 200 mg 2-15 capsule by ity of capsule 00:00: mouth 3 [place] 00 (three) Medical times Branch daily as needed for Cough. albuterol 2021-05 Yes [id number] 2{puff} Inhale 2 Univers 90 2-15 Puffs ity of mcg/actuati 00:00: every 4 [place] on inhaler 00 (four) Medical hours as Branch needed for Wheezing or Shortness of Breath. butalbital- 2021-05 Yes [id number] 1{tbl} Take 1 Univers acetaminoph 2-15 tablet by ity of en-caff 00:00: mouth [place] 50-325-40 00 every 4 Medical mg tablet (four) Branch hours as needed (headache) . ondansetron 2021-05 Yes [id number] 1-2 U nivers 4 mg tablet 2-15 tablets ity o f 00:00: every 8 [place] 00 hours as Medical needed for Branch nausea benzonatate 2021-05 Yes [id number] 200mg Take 1 Univers 200 mg 2-15 capsule by ity of capsule 00:00: mouth 3 00 (three) Medical times Branch daily as needed for Cough. albuterol 2021-05 Yes [id number] 2{puff} Inhale 2 Univers 90 2-15 Puffs ity of mcg/actuati 00:00: every 4 [place] on inhaler 00 (four) Medical hours as Branch needed for Wheezing or Shortness of Breath. butalbital- 2021-05 Yes [id number] 1{tbl} Take 1 Univers acetaminoph 2-15 tablet by ity of en-caff 00:00: mouth [place] 50-325-40 00 every 4 Medical mg tablet (four) Branch hours as needed (headache) . ondansetron 2021-05 Yes [id number] 1-2 U nivers 4 mg tablet 2-15 tablets ity o f 00:00: every 8 [place] 00 hours as Medical needed for Branch nausea benzonatate 2021-05 Yes [id number] 200mg Take 1 Univers 200 mg 2-15 capsule by ity of capsule 00:00: mouth 3 [place] 00 (three) Medical times Branch daily as needed for Cough. albuterol 2021-05 Yes [id number] 2{puff} Inhale 2 Univers 90 2-15 Puffs ity of mcg/actuati 00:00: every 4 [place] on inhaler 00 (four) Medical hours as Branch needed for Wheezing or Shortness of Breath. butalbital- 2021-05 Yes [id number] 1{tbl} Take 1 Univers acetaminoph 2-15 tablet by ity of en-caff 00:00: mouth [place] 50-325-40 00 every 4 Medical mg tablet (four) Branch hours as needed (headache) . ondansetron 2021-05 Yes [id number] 1-2 U nivers 4 mg tablet 2-15 tablets ity o f 00:00: every 8 [place] 00 hours as Medical needed for Branch nausea benzonatate 2021-05 Yes [id number] 200mg Take 1 Univers 200 mg 2-15 capsule by ity of capsule 00:00: mouth 3 [place] 00 (three) Medical times Branch daily as needed for Cough. albuterol 2021-05 Yes [id number] 2{puff} Inhale 2 Univers 90 2-15 Puffs ity of mcg/actuati 00:00: every 4 [place] on inhaler 00 (four) Medical hours as Branch needed for Wheezing or Shortness of Breath. butalbital- 2021-05 Yes [id number] 1{tbl} Take 1 Univers acetaminoph 2-15 tablet by ity of en-caff 00:00: mouth [place] 50-325-40 00 every 4 Medical mg tablet (four) Branch hours as needed (headache) . ondansetron 2021-05 Yes [id number] 1-2 U nivers 4 mg tablet 2-15 tablets ity o f 00:00: every 8 [place] 00 hours as Medical needed for Branch nausea benzonatate 2021-05 Yes [id number] 200mg Take 1 Univers 200 mg 2-15 capsule by ity of capsule 00:00: mouth 3 [place] 00 (three) Medical times Branch daily as needed for Cough. albuterol 2021-05 Yes [id number] 2{puff} Inhale 2 Univers 90 2-15 Puffs ity of mcg/actuati 00:00: every 4 [place] on inhaler 00 (four) Medical hours as Branch needed for Wheezing or Shortness of Breath. butalbital- 2021-05 Yes [id number] 1{tbl} Take 1 Univers acetaminoph 2-15 tablet by ity of en-caff 00:00: mouth [place] 50-325-40 00 every 4 Medical mg tablet (four) Branch hours as needed (headache) . ondansetron 2021-05 Yes [id number] 1-2 U nivers 4 mg tablet 2-15 tablets ity o f 00:00: every 8 [place] 00 hours as Medical needed for Branch nausea benzonatate 2021-05 Yes [id number] 200mg Take 1 Univers 200 mg 2-15 capsule by ity of capsule 00:00: mouth 3 [place] 00 (three) Medical times Branch daily as needed for Cough. albuterol 2021-05 Yes [id number] 2{puff} Inhale 2 Univers 90 2-15 Puffs ity of mcg/actuati 00:00: every 4 [place] on inhaler 00 (four) Medical hours as Branch needed for Wheezing or Shortness of Breath. butalbital- 2021-05 Yes [id number] 1{tbl} Take 1 Univers acetaminoph 2-15 tablet by ity of en-caff 00:00: mouth [place] 50-325-40 00 every 4 Medical mg tablet (four) Branch hours as needed (headache) . ondansetron 2021-05 Yes [id number] 1-2 U nivers 4 mg tablet 2-15 tablets ity o f 00:00: every 8 [place] 00 hours as Medical needed for Branch nausea benzonatate 2021-05 Yes [id number] 200mg Take 1 Univers 200 mg 2-15 capsule by ity of capsule 00:00: mouth 3 [place] 00 (three) Medical times Branch daily as needed for Cough. albuterol 2021-05 Yes [id number] 2{puff} Inhale 2 Univers 90 2-15 Puffs ity of mcg/actuati 00:00: every 4 [place] on inhaler 00 (four) Medical hours as Branch needed for Wheezing or Shortness of Breath. butalbital- 2021-05 Yes [id number] 1{tbl} Take 1 Univers acetaminoph 2-15 tablet by ity of en-caff 00:00: mouth [place] 50-325-40 00 every 4 Medical mg tablet (four) Branch hours as needed (headache) . ondansetron 2021-05 Yes [id number] 1-2 U nivers 4 mg tablet 2-15 tablets ity o f 00:00: every 8 [place] 00 hours as Medical needed for Branch nausea benzonatate 2021-05 Yes [id number] 200mg Take 1 Univers 200 mg 2-15 capsule by ity of capsule 00:00: mouth 3 [place] 00 (three) Medical times Branch daily as needed for Cough. albuterol 2021-05 Yes [id number] 2{puff} Inhale 2 Univers 90 2-15 Puffs ity of mcg/actuati 00:00: every 4 [place] inhaler 00 (four) Medical hours as Branch needed for Wheezing or Shortness of Breath. butalbital- 2021-05 Yes [id number] 1{tbl} Take 1 Univers acetaminoph 2-15 tablet by ity of en-caff 00:00: mouth [place] 50-325-40 00 every 4 Medical mg tablet (four) Branch hours as needed (headache) . ondansetron 2021-05 Yes [id number] 1-2 U nivers 4 mg tablet 2-15 tablets ity o f 00:00: every 8 [place] 00 hours as Medical needed for Branch nausea benzonatate 2021-05 Yes [id number] 200mg Take 1 Univers 200 mg 2-15 capsule by ity of capsule 00:00: mouth 3 [place] 00 (three) Medical times Branch daily as needed for Cough. albuterol 2021-05 Yes [id number] 2{puff} Inhale 2 Univers 90 2-15 Puffs ity of mcg/actuati 00:00: every 4 [place] on inhaler 00 (four) Medical hours as Branch needed for Wheezing or Shortness of Breath. butalbital- 2021-05 Yes [id number] 1{tbl} Take 1 Univers acetaminoph 2-15 tablet by ity of en-caff 00:00: mouth [place] 50-325-40 00 every 4 Medical mg tablet (four) Branch hours as needed (headache) . ondansetron 2021-05 Yes [id number] 1-2 U nivers 4 mg tablet 2-15 tablets ity o f 00:00: every 8 [place] 00 hours as Medical needed for Branch nausea benzonatate 2021-05 Yes [id number] 200mg Take 1 Univers 200 mg 2-15 capsule by ity of capsule 00:00: mouth 3 [place] 00 (three) Medical times Branch daily as needed for Cough. albuterol 2021-05 Yes [id number] 2{puff} Inhale 2 Univers 90 2-15 Puffs ity of mcg/actuati 00:00: every 4 [place] on inhaler 00 (four) Medical hours as Branch needed for Wheezing or Shortness of Breath. butalbital- 2021-05 Yes [id number] 1{tbl} Take 1 Univers acetaminoph 2-15 tablet by ity of en-caff 00:00: mouth [place] 50-325-40 00 every 4 Medical mg tablet (four) Branch hours as needed (headache) . [facility] 2021-05- No [id number] 2{tbl} Take 2 Univers r-ritonavir 2-15 12-21 tablets by i ty of (PAXLOVID, 00:00: 05:59 mouth in [place] EUA,) 300 00 :00 the Medical mg (150 mg morning Branch x 2)-100 mg and 2 tablet tablets in the evening. Do all this for 5 days. [facility] 2021-05- No [id number] 2{tbl} Take 2 Univers r-ritonavir 2-15 12-21 tablets by i ty of (PAXLOVID, 00:00: 05:59 mouth [place] EUA,) 300 00 :00 the Medical mg (150 mg morning Branch x 2)-100 mg and 2 tablet tablets in the evening. Do all this for 5 days. [facility] 2021-05- No [id number] 2{tbl} Take 2 Univers r-ritonavir 2-15 12-21 tablets by i ty of (PAXLOVID, 00:00: 05:59 [place] EUA[place] 300 00 :00 the Medical mg (150 mg morning Branch x 2)-100 mg and 2 tablet tablets in the evening. Do all this for 5 days. [facility] 2021-05- No [id number] 2{tbl} Take 2 Univers r-ritonavir 2-15 12-21 [...] 04/22/22 at 1645, Routine amoxicillin 2021-05 Yes [id number] 1{tbl} Take 1 Univers -clavulanat 2-01 [id number] tablet by i ty of e 875-125 00:00: mouth [place] mg per 00 every 12 Medical tablet (twelve) Branch hours. ondansetron 2021-05 Yes [id number] 4mg Take 1 Univers 4 mg 2- [id number] tablet by ity of disintegrat 00:00: mouth [place] ing tablet 00 every 8 Medica l (eight) Branch hours as needed for Nausea and Vomiting (N/V). amoxicillin 2021-05 Yes [id number] 1{tbl} Take 1 Univers -clavulanat 2-01 [id number] tablet by i ty of e 875-125 00:00: mouth [place] mg per 00 every 12 Medical tablet (twelve) Branch hours. ondansetron 2021-05 Yes [id number] 4mg Take 1 Univers 4 mg 2- [id number] tablet by ity of disintegrat 00:00: mouth [place] ing tablet 00 every 8 Medica l (eight) Branch hours as needed for Nausea and Vomiting (N/V). amoxicillin 2021-05 Yes [id number] 1{tbl} Take 1 Univers -clavulanat 2-01 [id number] tablet by i ty of e 875-125 00:00: mouth [place] mg per 00 every 12 Medical tablet (twelve) Branch hours. ondansetron 2021-05 Yes [id number] 4mg Take 1 Univers 4 mg 2-01 [id number] tablet by ity of disintegrat 00:00: mouth [place] ing tablet 00 every 8 Medica l (eight) Branch hours as needed for Nausea and Vomiting (N/V). amoxicillin 2021-05 Yes [id number] 1{tbl} Take 1 Univers -clavulanat 2-01 [id number] tablet by i ty of e 875-125 00:00: mouth [place] mg per 00 every 12 Medical tablet (twelve) Branch hours. ondansetron 2021-05 Yes [id number] 4mg Take 1 Univers 4 mg 2-01 [id number] tablet by ity of disintegrat 00:00: mouth [place] ing tablet 00 every 8 Medica l (eight) Branch hours as needed for Nausea and Vomiting (N/V). amoxicillin 2021-05 Yes [id number] 1{tbl} Take 1 Univers -clavulanat 2-01 [id number] tablet by i ty of e 875-125 00:00: mouth [place] mg per 00 every 12 Medical tablet (twelve) Branch hours. ondansetron 2021-05 Yes [id number] 4mg Take 1 Univers 4 mg 2-01 [id number] tablet by ity of disintegrat 00:00: mouth [place] ing tablet 00 every 8 Medica l (eight) Branch hours as needed for Nausea and Vomiting (N/V). amoxicillin 2021-05 Yes [id number] 1{tbl} Take 1 Univers -clavulanat 2-01 [id number] tablet by i ty of e 875-125 00:00: mouth [place] mg per 00 every 12 Medical tablet (twelve) Branch hours. ondansetron 2021-05 Yes [id number] 4mg Take 1 Univers 4 mg 2- [id number] tablet by ity of disintegrat 00:00: mouth [place] ing tablet 00 every 8 Medica l (eight) Branch hours as needed for Nausea and Vomiting (N/V). amoxicillin 2021-05 Yes [id number] 1{tbl} Take 1 Univers -clavulanat 2-01 [id number] tablet by i ty of e 875-125 00:00: mouth [place] mg per 00 every 12 Medical tablet (twelve) Branch hours. ondansetron 2021-05 Yes [id number] 4mg Take 1 Univers 4 mg 2-01 [id number] tablet by ity of disintegrat 00:00: mouth [place] ing tablet 00 every 8 Medica l (eight) Branch hours as needed for Nausea and Vomiting (N/V). amoxicillin 2021-05 Yes [id number] 1{tbl} Take 1 Univers -clavulanat 2-01 [id number] tablet by i ty of e 875-125 00:00: mouth [place] mg per 00 every 12 Medical tablet (twelve) Branch hours. ondansetron 2021-05 Yes [id number] 4mg Take 1 Univers 4 mg 2-01 [id number] tablet by ity of disintegrat 00:00: mouth [place] ing tablet 00 every 8 Medica l (eight) Branch hours as needed for Nausea and Vomiting (N/V). amoxicillin 2021-05 Yes [id number] 1{tbl} Take 1 Univers -clavulanat 2-01 [id number] tablet by i ty of e 875-125 00:00: mouth [place] mg per 00 every 12 Medical tablet (twelve) Branch hours. ondansetron 2021-05 Yes [id number] 4mg Take 1 Univers 4 mg 2- [id number] tablet by ity of disintegrat 00:00: mouth [place] ing tablet 00 every 8 Medica l (eight) Branch hours as needed for Nausea and Vomiting (N/V). amoxicillin 2021-05 Yes [id number] 1{tbl} Take 1 Univers -clavulanat 2-01 [id number] tablet by i ty of e 875-125 00:00: mouth [place] mg per 00 every 12 Medical tablet (twelve) Branch hours. ondansetron 2021-05 Yes [id number] 4mg Take 1 Univers 4 mg 2- [id number] tablet by ity of disintegrat 00:00: mouth [place] ing tablet 00 every 8 Medica l (eight) Branch hours as needed for Nausea and Vomiting (N/V). amoxicillin 2021-05 Yes [id number] 1{tbl} Take 1 Univers -clavulanat 2-01 [id number] tablet by i ty of e 875-125 00:00: mouth [place] mg per 00 every 12 Medical tablet (twelve) Branch hours. ondansetron 2021-05 Yes [id number] 4mg Take 1 Univers 4 mg 2-01 [id number] tablet by ity of disintegrat 00:00: mouth [place] ing tablet 00 every 8 Medica l (eight) Branch hours as needed for Nausea and Vomiting (N/V). amoxicillin 2021-05 Yes [id number] 1{tbl} Take 1 Univers -clavulanat 2-01 [id number] tablet by i ty of e 875-125 00:00: mouth [place] mg per 00 every 12 Medical tablet (twelve) Branch hours. ondansetron 2021-05 Yes [id number] 4mg Take 1 Univers 4 mg 2-01 [id number] tablet by ity of disintegrat 00:00: mouth [place] ing tablet 00 every 8 Medica l (eight) Branch hours as needed for Nausea and Vomiting (N/V). zoster 2021-05 [id number] .5mL 0.5 mL by Univers vaccine, 0-05 03-15 9104 Intramuscu ity of recombinant 00:00: 04:59 lar route [place] (SHINGRIX, 00 :00 once now Medic al PF,) for 1 Branch injection dose. And repeat in 2-6 months zoster 2021-05- No [id number] .5mL 0.5 mL by [facility] vaccine, 0-05 03-15 9104 Intramuscu ity of recombinant 00:00: 04:59 lar route [place] (SHINGRIX, 00 :00 once now Medic al PF,) for 1 Branch injection dose. And repeat in 2-6 months zoster 2021-05- No [id number] .5mL 0.5 mL by [facility] vaccine, 0-05 [...] 1 mg tablet 19:28: at [place] [address] bedtime. Medical Branch traZODone 0 Yes 50mg Take 50 mg Un matt 100 mg 9-27 by mouth ity of tablet 19:28: at [place] [address] bedtime. Medical Branch hydralAZINE 2022-0 Yes 25mg [...] 1 mg tablet 19:28: at [place] [address] bedtime. Medical Branch traZODone 2021-0 Yes 50mg Take 50 mg Un matt 100 mg 9-27 by mouth ity of tablet 19:28: at [place] [address] bedtime. Medical Branch hydralAZINE 2021-0 Yes 25mg [...] 1 mg tablet 19:28: at [place] [address] bedtime. Medical Branch traZODone 2-0 Yes 50mg Take 50 mg Un matt 100 mg 9-27 by mouth ity of tablet 19:28: at [place] [address] bedtime. Medical Branch hydralAZINE 2021-0 Yes 25mg [...] 1 mg tablet 19:28: at [place] [address] bedtime. Medical Branch traZODone 2021-0 Yes 50mg Take 50 mg Un matt 100 mg 9-27 by mouth ity of tablet 19:28: at [place] [address] bedtime. Medical Branch hydralAZINE 2021-0 Yes 25mg [...] 1 mg tablet 19:28: at [place] [address] bedtime. Medical Branch traZODone 2021-0 Yes 50mg Take 50 mg Un matt 100 mg 9-27 by mouth ity of tablet 19:28: at [place] [address] bedtime. Medical Branch hydralAZINE 2021-0 Yes 25mg [...] 1 mg tablet 19:28: at [place] [address] bedtime. Medical Branch traZODone 2021-0 Yes 50mg Take 50 mg Un matt 100 mg 9- by mouth ity of tablet 19:28: at [place] [address] bedtime. Medical Branch hydralAZINE 2021-0 Yes 25mg [...] 1 mg tablet 19:28: at [place] [address] bedtime. Medical Branch traZODone 2021-0 Yes 50mg Take 50 mg Un matt 100 mg 9-27 by mouth ity of tablet 19:28: at [place] [address] bedtime. Medical Branch hydralAZINE 2021-0 Yes 25mg [...] 1 mg tablet 19:28: at [place] [address] bedtime. Medical Branch traZODone 2021-0 Yes 50mg Take 50 mg Un matt 100 mg 9-27 by mouth ity of tablet 19:28: at [place] [address] bedtime. Medical Branch hydralAZINE 2021-0 Yes 25mg [...] 1 mg tablet 19:28: at [place] [address] bedtime. Medical Branch traZODone 2021-0 Yes 50mg Take 50 mg Un matt 100 mg 9-27 by mouth ity of tablet 19:28: at [place] [address] bedtime. Medical Branch hydralAZINE 2021-0 Yes 25mg Take 25 mg [facility] (APRESOLINE 9-27 by mouth ity of ) 25 mg 19:28: daily. [place] tablet 04 Medical Branch lisinopril 2021-0 Yes 40mg Take 40 mg U nivers (PRINIVIL,Z 9-27 by mouth 2 it y of ESTRIL) 40 19:28: (two) [place] mg tablet 04 times [facility] daily. Branch metoprolol 2021-0 Yes 100mg Take 100 Un matt tartrate 9-27 mg by ity of (LOPRESSOR) 19:28: mouth 2 [place] 100 mg 04 (two) Medical tablet times [place] daily. amLODIPine 2021-0 Yes 10mg Take 10 mg U nivers (NORVASC) 9-27 by mouth ity of 10 mg 19:28: daily. [place] tablet 04 Medical Branch clonazePAM 2021-0 Yes 1mg Take 1 mg Un matt (KLONOPIN) 9-27 by mouth ity o f 1 mg tablet 19:28: at [place] [address] bedtime. Medical Branch traZODone 2021-0 Yes 50mg Take 50 mg Un matt 100 mg 9-27 by mouth ity of tablet 19:28: at [place] [address] bedtime. Medical Branch hydralAZINE 2021-0 Yes 25mg [...] o f 1 mg tablet 19:28: at [place] 04 bedtime. Medical Branch traZODone 2021-0 Yes 50mg Take 50 mg Un matt 100 mg 9-27 by mouth ity of tablet 19:28: at [place] [address] bedtime. Medical Branch hydralAZINE 2021-0 Yes 25mg [...] 1 mg tablet 19:28: at [place] [address] bedtime. Medical Branch traZODone 2021-0 Yes 50mg Take 50 mg Un matt 100 mg 9-27 by mouth ity of tablet 19:28: at [place] [address] bedtime. Medical Branch hydralAZINE 2021-0 Yes 25mg [...] 1 mg tablet 19:28: at [place] [address] bedtime. Medical Branch traZODone 2021-0 Yes 50mg Take 50 mg Un matt 100 mg 9- by mouth ity of tablet 19:28: at [place] [address] bedtime. Medical Branch hydralAZINE 2021-0 Yes 25mg [...] 100 mg 04 (two) Medical tablet times [place] daily. amLODIPine 2021-0 Yes 10mg Take 10 mg U nivers (NORVASC) 9-27 by mouth ity of 10 mg 19:28: daily. [place] tablet 04 Medical Branch clonazePAM 2021-0 Yes 1mg Take 1 mg Un matt (KLONOPIN) 9- by mouth ity o f 1 mg tablet 19:28: at [place] [address] bedtime. Medical Branch traZODone 2021-0 Yes 50mg Take 50 mg Un matt 100 mg 9-27 by mouth ity of tablet 19:28: at [place] [address] bedtime. Medical Branch hydralAZINE 2021-0 Yes 25mg [...] 1 mg tablet 19:28: at [place] [address] bedtime. Medical Branch traZODone 2021-0 Yes 50mg Take 50 mg Un matt 100 mg 9-27 by mouth ity of tablet 19:28: at [place] [address] bedtime. Medical Branch hydralAZINE 2021-0 Yes 25mg [...] 1 mg tablet 19:28: at [place] [address] bedtime. Medical Branch traZODone 2022-0 Yes 50mg Take 50 mg Un matt 100 mg 9-27 by mouth ity of tablet 19:28: at [place] [address] bedtime. Medical Branch hydralAZINE 2021-0 Yes 25mg [...] 1 mg tablet 19:28: at [place] [address] bedtime. Medical Branch traZODone 2021-0 Yes 50mg Take 50 mg Un matt 100 mg 9-27 by mouth ity of tablet 19:28: at [place] [address] bedtime. Medical Branch hydralAZINE 2021-0 Yes 25mg [...] 1 mg tablet 19:28: at [place] [address] bedtime. Medical Branch traZODone 2-0 Yes 50mg Take 50 mg Un matt 100 mg 9-27 by mouth ity of tablet 19:28: at [place] [address] bedtime. Medical Branch hydralAZINE 2-0 Yes 25mg [...] 100 mg 04 (two) Medical tablet times [place] daily. amLODIPine 2-0 Yes 10mg Take 10 mg U nivers (NORVASC) 9-27 by mouth ity of 10 mg 19:28: daily. [place] tablet 04 Medical Branch clonazePAM 2021-0 Yes 1mg Take 1 mg Un matt (KLONOPIN) 9-27 by mouth ity o f 1 mg tablet 19:28: at [place] [address] bedtime. Medical Branch traZODone 2021-0 Yes 50mg Take 50 mg Un matt 100 mg 9-27 by mouth ity of tablet 19:28: at [place] [address] bedtime. Medical Branch hydralAZINE 2021-0 Yes 25mg [...] 1 mg tablet 19:28: at [place] [address] bedtime. Medical Branch traZODone Yes 50mg Take 50 mg Un matt 100 mg 02-16 by mouth ity of tablet 19:28: at [place] [address] bedtime. Medical Branch cefpodoxime 0 2021- No [id number] 200mg Take 1 [facility] 200 mg 02-16 tablet by ity of tablet 00:00: 04:59 mouth in [place] 00 :00 the [facility] and 1 tablet in the evening. Do all this for 3 days. cefpodoxime 0 2021- No [id number] 200mg Take 1 [facility] 200 mg 02-16 tablet by ity of tablet 00:00: 04:59 mouth in [place] 00 :00 the [facility] and 1 tablet in the evening. Do all this for 3 days. haloperidol 2021- No 2mg 2 mg, Slow [facility] lactate 02-15 IV Push, ity of (HALDOL) 09:00: 09:12 ONCE, 1 [place] injection 2 00 :00 dose, On Medi porfirio mg [facility] 02/15/22 at 0400, Routine hydroCHLORO Yes 25mg 25 mg, Univ ers thiazide 9-25 Oral, ity of (ESIDRIX) 14:00: DAILY, [place] capsule 25 00 First dose Med ical mg on [place] [facility] 02/14/22 at 0900, Until Discontinu ed, Routine butalbital- Yes 1{tbl} 1 tablet, Univers acetaminoph 02-13 Oral, ity of en-caff 18:46: Q6HPRN, [place] (ESGIC) 06 Starting Medical 50-325-40 on [facility] Branch mg tablet 1 02/13/22 at [...] dose [place] mg 00 on [facility] Medical 02/11/22 at Branch 1300, Until Discontinu ed, Routine raltegravir 2021-0 Yes 400mg 400 mg, Un matt (ISENTRESS) 02-11 Oral, BID, it y of tablet 400 18:00: First dose [place] mg 00 on [facility] Medical 02/11/22 at Branch 1300, Until Discontinu ed, JOE metoprolol 2021-0 Yes 100mg 100 mg, Uni vers tartrate 02-11 Oral, BID, ity o f (LOPRESSOR) 18:00: First dose [place] tablet 100 00 on [facility] Medical mg 02/11/22 at Branch 1300, Until Discontinu ed, Routine lisinopriL 0 Yes 40mg 40 mg, Unive rs (PRINIVIL,Z 02-11 Oral, BID, it y of ESTRIL) 18:00: First dose [place] tablet 40 00 on [facility] Medical mg 02/11/22 at Branch 1300, Until Discontinu ed, Routine emtricitabi 0 Yes 1{tbl} 1 tablet, [facility] ne-tenofovi 02-11 Oral, ity of r alafen 18:00: DAILY, [place] (DESCOVY) 00 First dose Medi porfirio tablet 1 on [facility] tablet 02/11/22 at 1300, Until Discontinu ed, Routine ipratropium 0 Yes .5mg 0.5 mg, Uni vers (ATROVENT) 02-11 Inhalation ity of 0.02 % 17:57: , QIDPRN, [place] nebulizer 10 Starting Medica l solution on [facility] Branch 0.5 mg 02/11/22 at 1257, Until Discontinu ed, Routine, Wheezing, Shortness of Breath amLODIPine 2021-0 Yes 10mg 10 mg, Unive rs (NORVASC) 02-11 Oral, ity of tablet 10 17:30: DAILY, [place] mg 00 First dose Medical (after Branch last modificati on) on [facility] 02/11/22 at 1230, Until Discontinu ed, [...] Starting Medi porfirio tablet 1 on [facility] Branch tablet 02/11/22 at 0911, Until Tue02/12/22 at 1237, Routine, Pain (scale 7-10) melatonin 0 Yes 3mg 3 mg, Univers (MELATIN) 02-11 Oral, ity of tablet 3 mg 14:08: QHSPRN, [place] 17 Starting Medical on [facility] Branch 02/11/22 at 0908, Until Discontinu ed, Routine, Insomnia acetaminoph 0 2021- No 1{tbl} 1 tablet, [facility] en-codeine 02-11 Oral, ity of (TYLENOL 14:06: 17:37 Q6HPN, [place] #3) 300-30 19 :24 Starting Medic al mg tablet 1 on [facility] tablet 02/11/22 at 0906, Until Tue02/12/22 at 1237, Routine, Pain (scale 4-6) sennosides- Yes 1{tbl} 1 tablet, Univers docusate 02-11 Oral, ity of sodium 14:06: QDAILYPRSherrie Kessler (SENOKOT-S) 09 Starting Medi porfirio 8.6-50 mg on [facility] per tablet 02/11/22 at 1 tablet 0906, Until Discontinu ed, Routine, Constipati on ondansetron 0 Yes 4mg 4 mg, Slow Univers (ZOFRAN 02-11 IV Push, ity of (PF)) 14:05[facility] [place] [facility] 4 59 Starting Medi porfirio mg on [facility] Branch 02/11/22 at 0905, Until Discontinu ed, Routine, Nausea and Vomiting (N/V) acetaminoph 0 Yes 650mg 650 mg, Un matt en 02-11 Oral, ity of (TYLENOL) 14:04: Q6RN, [place] tablet 650 37 Starting Medic al [...] ) 25 mg 09:10: daily. [facility] 54 [facility] Branch amLODIPine 0 Yes 10mg Take 10 mg U nivers (NORVASC) 02-11 by mouth ity of 10 mg 09:10: daily. [facility] 54 [facility] Branch piperacilli 2021- No 3.375g 3.375 g, [...] of therapy: 72 hours iopamidol 2021- No [id number] 60mL 60 mL, Univers (ISOVUE 02-11 Intravenou [...] :00 dose, On Medic al mg [facility] Branch 02/11/22 at 0015, JOE emtricitabi 0 Yes [id number] Take one Univers ne-tenofovi 9-12 po daily ity of r alafen 00:00: [place] (DESCOVY) 00 Medical tablet Branch emtricitabi Yes [id number] Take one Univers ne-tenofovi 9-12 po daily ity of r alafen 00:00: [place] (DESCOVY) 00 Medical tablet Branch emtricitabi Yes [id number] Take one Univers ne-tenofovi 9-12 po daily ity of r alafen 00:00: [place] (DESCOVY) 00 Medical tablet Branch emtricitabi Yes [id number] Take one Univers ne-tenofovi 9-12 po daily ity of r alafen 00:00: [place] (DESCOVY) 00 Medical tablet Branch emtricitabi Yes [id number] Take one Univers ne-tenofovi 9-12 po daily ity of r alafen 00:00: [place] (DESCOVY) 00 Medical tablet Branch emtricitabi Yes [id number] Take one Univers ne-tenofovi 9-12 po daily ity of r alafen 00:00: [place] (DESCOVY) 00 Medical tablet Branch [facility] Yes [id number] Take one Univers ne-tenofovi 9-12 po daily ity of r alafen 00:00: [place] (DESCOVY) 00 Medical tablet Branch emtricita Yes [id number] Take one Univers ne-tenofovi 9-12 po daily ity of r alafen 00:00: [place] (DESCOVY) 00 Medical tablet Branch emtricita Yes [id number] Take one Univers ne-tenofovi 9-12 po daily ity of r alafen 00:00: [place] (DESCOVY) 00 Medical tablet Branch emtricita Yes [id number] Take one Univers ne-tenofovi 9-12 po daily ity of r alafen 00:00: [place] (DESCOVY) 00 Medical tablet Branch emtricita Yes [id number] Take one Univers ne-tenofovi 9-12 po daily ity of r alafen 00:00: [place] (DESCOVY) 00 Medical tablet Branch [facility] [id number] Take one Univers ne-tenofovi 9-12 po daily ity of r alafen 00:00: [place] (DESCOVY) 00 Medical tablet Branch emtricita Yes [id number] Take one Univers ne-tenofovi 9-12 po daily ity of r alafen 00:00: [place] (DESCOVY) 00 Medical tablet Branch emtricita Yes [id number] Take one Univers ne-tenofovi 9-12 po daily ity of r alafen 00:00: [place] (DESCOVY) 00 Medical tablet Branch emtricita Yes [id number] Take one Univers ne-tenofovi 9-12 po daily ity of r alafen 00:00: [place] (DESCOVY) 00 Medical tablet Branch emtricita Yes [id number] Take one Univers ne-tenofovi 9-12 po daily ity of r alafen 00:00: [place] (DESCOVY) 00 Medical tablet Branch emtricita Yes [id number] Take one Univers ne-tenofovi 9-12 po daily ity of r alafen 00:00: [place] (DESCOVY) 00 Medical tablet Branch emtricitabi 2021-0 2022- No [id number] Take one Univers ne-arianofovi 02-01 po daily ity of r alafen 00:00: 00:00 [place] (DESCOVY) 00 :00 Medical tablet Branch emtricitabi 2021-0 3- No [id number] Take one Univers ne-arianofovi 02-01 po daily ity of r alafen 00:00: 00:00 [place] (DESCOVY) 00 :00 Medical tablet Branch naproxen 2021-0 Yes [id number] 500mg Take 1 U nivers (NAPROSYN) 7-24 tablet by ity of 500 mg 00:00: mouth in [place] tablet 00 the Medical morning Branch and 1 tablet in the evening. Take with meals. methocarbam 2021-0 Yes [id number] 500mg Take 1 Univers oL 500 mg 7-24 tablet by ity o f tablet 00:00: mouth 4 [place] ([facility]) Medical times [place] daily. naproxen 2021-0 Yes [id number] 500mg Take 1 U nivers (NAPROSYN) 7-24 tablet by ity of 500 mg 00:00: mouth in [place] tablet 00 the Medical morning Branch and 1 tablet in the evening. Take with meals. methocarbam 2-0 Yes [id number] 500mg Take 1 Univers oL 500 mg 7-24 tablet by ity o f tablet 00:00: mouth 4 [place] ([facility]) Medical times [place] daily. naproxen 2-0 Yes [id number] 500mg Take 1 U nivers (NAPROSYN) 7-24 tablet by ity of 500 mg 00:00: mouth in [place] tablet 00 the Medical morning Branch and 1 tablet in the evening. Take with meals. methocarbam 2-0 Yes [id number] 500mg Take 1 Univers oL 500 mg 7-24 tablet by ity o f tablet 00:00: mouth 4 [place] ([facility]) Medical times Branch daily. naproxen 2-0 2022- No [id number] 500mg Take 1 Univers (NAPROSYN) 7-24 10-14 tablet by ity of 500 mg 00:00: 00:00 mouth in [place] tablet 00 :00 the Medical morning Branch and 1 tablet in the evening. Take with meals. methocarbam 2021- No [id number] 500mg Take 1 [facility] oL 500 mg 12-13-14 tablet by ity of tablet 00:00: 00:00 mouth 4 [place] 00 :00 (four) Medical times Branch daily. naproxen 2021- No [id number] 500mg Take 1 Univers (NAPROSYN) 12-13-14 tablet by ity of 500 mg 00:00: 00:00 mouth in [place] tablet 00 :00 the Medical morning Branch and 1 tablet in the evening. Take with meals. methocarbam 2021- No [id number] 500mg Take 1 [facility] oL 500 mg 12-13 tablet by ity of tablet 00:00: 00:00 mouth 4 [place] 00 :00 (four) Medical times Branch daily. esomeprazol 2021- No 40mg Take 40 mg Univers e (NEXIUM) 11-20 by mouth 2 it y of 40 mg 09:12: 00:00 (two) [place] capsule 03 :00 times Medical daily. Branch [...] daily. Branch traZODONE 2021- No Take by [facility] ers (DESYREL) 11-20 mouth at ity o f 10 mg/mL 09:10: 00:00 bedtime. [place] oral 28 :00 Medical suspension Branch hydralAZINE Yes 25mg Take 25 mg Univers (APRESOLINE 11-20 by mouth ity of ) 25 mg 08:47: daily. [place] tablet 47 Medical Branch cephALEXin 2021- No [id number] 500mg Take 1 Univers (KEFLEX) 10-24 capsule [...] Indication s: acute pain buPROPion 2021-0 Yes [id number] 150mg Take 1 U nivers XL 4-12 tablet by ity of (WELLBUTRIN 00:00: mouth [place] XL) 150 mg 00 daily. Medical 24 hr Branch tablet busPIRone 2021-0 Yes [id number] 30mg Take 1 Un matt 30 mg 4-12 tablet by ity of tablet 00:00: mouth 2 [place] 00 (two) Medical times Branch daily. SERTraline Yes [id number] 200mg Take 2 Univers 100 mg 4-12 tablets by ity of tablet 00:00: mouth [place] 00 daily. Medical Branch buPROPion 2021-0 Yes [id number] 150mg Take 1 U nivers XL 4-12 tablet by ity of (WELLBUTRIN 00:00: mouth [place] XL) 150 mg 00 daily. Medical 24 hr Branch tablet busPIRone 2021-0 Yes [id number] 30mg Take 1 Un matt 30 mg 4-12 tablet by ity of tablet 00:00: mouth 2 [place] 00 (two) Medical times Branch daily. SERTraline 2021-0 Yes [id number] 200mg Take 2 Univers 100 mg 4-12 tablets by ity of tablet 00:00: mouth [place] 00 daily. Medical Branch buPROPion 2021-0 Yes [id number] 150mg Take 1 U nivers XL 4-12 tablet by ity of (WELLBUTRIN 00:00: mouth [place] XL) 150 mg 00 daily. Medical 24 hr Branch tablet busPIRone 2021-0 Yes [id number] 30mg Take 1 Un matt 30 mg 4-12 tablet by ity of tablet 00:00: mouth 2 [place] 00 (two) Medical times Branch daily. SERTraline 2021-0 Yes [id number] 200mg Take 2 [facility] 100 mg 4-12 tablets by ity of tablet 00:00: mouth [place] 00 daily. Medical Branch buPROPion 2021-0 Yes [id number] 150mg Take 1 U nivers XL 4-12 tablet by ity of (WELLBUTRIN 00:00: mouth [place] XL) 150 mg 00 daily. Medical 24 hr Branch tablet busPIRone 2021-0 Yes [id number] 30mg Take 1 Un matt 30 mg 4-12 tablet by ity of tablet 00:00: mouth 2 [place] 00 (two) Medical times Branch daily. SERTraline 2021-0 Yes [id number] 200mg Take 2 Univers 100 mg 4-12 tablets by ity of tablet 00:00: mouth [place] 00 daily. Medical Branch buPROPion 2021-0 Yes [id number] 150mg Take 1 U nivers XL 4-12 tablet by ity of (WELLBUTRIN 00:00: mouth [place] XL) 150 mg 00 daily. Medical 24 hr Branch tablet busPIRone 2021-0 Yes [id number] 30mg Take 1 Un matt 30 mg 4-12 tablet by ity of tablet 00:00: mouth 2 (two) Medical times Branch daily. SERTraline 2021-0 Yes [id number] 200mg Take 2 [facility] 100 mg 4-12 tablets by ity of tablet 00:00: mouth [place] 00 daily. Medical Branch buPROPion 2021-0 Yes [id number] 150mg Take 1 U nivers XL 4-12 tablet by ity of (WELLBUTRIN 00:00: mouth [place] XL) 150 mg 00 daily. Medical 24 hr Branch tablet busPIRone 2021-0 Yes [id number] 30mg Take 1 Un matt 30 mg 4-12 tablet by ity of tablet 00:00: mouth 2 [place] 00 (two) Medical times Branch daily. SERTraline 2021-0 Yes [id number] 200mg Take 2 [facility] 100 mg 4-12 tablets by ity of tablet 00:00: mouth [place] 00 daily. Medical Branch buPROPion 2021-0 Yes [id number] 150mg Take 1 U nivers XL 4-12 tablet by ity of (WELLBUTRIN 00:00: mouth [place] XL) 150 mg 00 daily. Medical 24 hr Branch tablet busPIRone 2021-0 Yes [id number] 30mg Take 1 Un matt 30 mg 4-12 tablet by ity of tablet 00:00: mouth 2 [place] 00 (two) Medical times Branch daily. SERTraline 2021-0 Yes [id number] 200mg Take 2 [facility] 100 mg 4-12 tablets by ity of tablet 00:00: mouth [place] 00 daily. Medical Branch buPROPion 2021-0 Yes [id number] 150mg Take 1 U nivers XL 4-12 tablet by ity of (WELLBUTRIN 00:00: mouth [place] XL) 150 mg 00 daily. Medical 24 hr Branch tablet busPIRone 2021-0 Yes [id number] 30mg Take 1 Un matt 30 mg 4-12 tablet by ity of tablet 00:00: mouth 2 [place] 00 (two) Medical times Branch daily. SERTraline 2021-0 Yes [id number] 200mg Take 2 [facility] 100 mg 4-12 tablets by ity of tablet 00:00: mouth [place] 00 daily. Medical Branch buPROPion 2021-0 Yes [id number] 150mg Take 1 U nivers XL 4-12 tablet by ity of (WELLBUTRIN 00:00: mouth [place] XL) 150 mg 00 daily. Medical 24 hr Branch tablet busPIRone 2021-0 Yes [id number] 30mg Take 1 Un matt 30 mg 4-12 tablet by ity of tablet 00:00: mouth 2 [place] 00 (two) Medical times Branch daily. SERTraline 2021-0 Yes [id number] 200mg Take 2 [facility] 100 mg 4-12 tablets by ity of tablet 00:00: mouth [place] 00 daily. Medical Branch buPROPion 2021-0 Yes [id number] 150mg Take 1 U nivers XL 4-12 tablet by ity of (WELLBUTRIN 00:00: mouth [place] XL) 150 mg 00 daily. Medical 24 hr Branch tablet busPIRone 2021-0 Yes [id number] 30mg Take 1 Un matt 30 mg 4-12 tablet by ity of tablet 00:00: mouth 2 [place] 00 (two) Medical times Branch daily. SERTraline 2021-0 Yes [id number] 200mg Take 2 [facility] 100 mg 4-12 tablets by ity of tablet 00:00: mouth [place] 00 daily. Medical Branch buPROPion 2021-0 Yes [id number] 150mg Take 1 U nivers XL 4-12 tablet by ity of (WELLBUTRIN 00:00: mouth [place] XL) 150 mg 00 daily. Medical 24 hr Branch tablet busPIRone 2021-0 Yes [id number] 30mg Take 1 Un matt 30 mg 4-12 tablet by ity of tablet 00:00: mouth 2 [place] 00 (two) Medical times Branch daily. SERTraline 2021-0 Yes [id number] 200mg Take 2 [facility] 100 mg 4-12 tablets by ity of tablet 00:00: mouth [place] 00 daily. Medical Branch buPROPion 2021-0 Yes [id number] 150mg Take 1 U nivers XL 4-12 tablet by ity of (WELLBUTRIN 00:00: mouth [place] XL) 150 mg 00 daily. Medical 24 hr Branch tablet busPIRone 2021-0 Yes [id number] 30mg Take 1 Un matt 30 mg 4-12 tablet by ity of tablet 00:00: mouth 2 [place] 00 (two) Medical times Branch daily. SERTraline 0 Yes [id number] 200mg Take 2 [facility] 100 mg 4-12 tablets by ity of tablet 00:00: mouth [place] 00 daily. Medical Branch buPROPion 2021-0 Yes [id number] 150mg Take 1 U nivers XL 4-12 tablet by ity of (WELLBUTRIN 00:00: mouth [place] XL) 150 mg 00 daily. Medical 24 hr Branch tablet busPIRone 2021-0 Yes [id number] 30mg Take 1 Un matt 30 mg 4-12 tablet by ity of tablet 00:00: mouth 2 [place] 00 (two) Medical times Branch daily. SERTraline 2021-0 Yes [id number] 200mg Take 2 [facility] 100 mg 4-12 tablets by ity of tablet 00:00: mouth [place] 00 daily. Medical Branch buPROPion 2021-0 Yes [id number] 150mg Take 1 U nivers XL 4-12 tablet by ity of (WELLBUTRIN 00:00: mouth [place] XL) 150 mg 00 daily. Medical 24 hr Branch tablet busPIRone 2021-0 Yes [id number] 30mg Take 1 Un matt 30 mg 4-12 tablet by ity of tablet 00:00: mouth 2 [place] 00 (two) Medical times Branch daily. SERTraline 2021-0 Yes [id number] 200mg Take 2 [facility] 100 mg 4-12 tablets by ity of tablet 00:00: mouth [place] 00 daily. Medical Branch buPROPion 2021-0 Yes [id number] 150mg Take 1 U nivers XL 4-12 tablet by ity of (WELLBUTRIN 00:00: mouth [place] XL) 150 mg 00 daily. Medical 24 hr Branch tablet busPIRone 2021-0 Yes [id number] 30mg Take 1 Un matt 30 mg 4-12 tablet by ity of tablet 00:00: mouth 2 [place] 00 (two) Medical times Branch daily. SERTraline 2021-0 Yes [id number] 200mg Take 2 [facility] 100 mg 4-12 tablets by ity of tablet 00:00: mouth [place] 00 daily. Medical Branch buPROPion 0 Yes [id number] 150mg Take 1 U nivers XL 4-12 tablet by ity of (WELLBUTRIN 00:00: mouth [place] XL) 150 mg 00 daily. Medical 24 hr Branch tablet busPIRone 0 Yes [id number] 30mg Take 1 Un matt 30 mg 4-12 tablet by ity of tablet 00:00: mouth 2 00 (two) Medical times Branch daily. SERTraline 0 Yes [id number] 200mg Take 2 [facility] 100 mg 4-12 tablets by ity of tablet 00:00: mouth [place] 00 daily. Medical Branch buPROPion 0 Yes [id number] 150mg Take 1 U nivers XL 4-12 tablet by ity of (WELLBUTRIN 00:00: mouth [place] XL) 150 mg 00 daily. Medical 24 hr Branch tablet busPIRone 2021-0 Yes [id number] 30mg Take 1 Un matt 30 mg 4-12 tablet by ity of tablet 00:00: mouth 2 00 (two) Medical times Branch daily. SERTraline 2021-0 Yes [id number] 200mg Take 2 [facility] 100 mg 4-12 tablets by ity of tablet 00:00: mouth [place] 00 daily. Medical Branch buPROPion 2021-0 Yes [id number] 150mg Take 1 U nivers XL 4-12 tablet by ity of (WELLBUTRIN 00:00: mouth [place] XL) 150 mg 00 daily. Medical 24 hr Branch tablet busPIRone 2021-0 Yes [id number] 30mg Take 1 Un matt 30 mg 4-12 tablet by ity of tablet 00:00: mouth 2 [place] 00 (two) Medical times Branch daily. SERTraline 2022-0 Yes [id number] 200mg Take 2 [facility] 100 mg 4-12 tablets by ity of tablet 00:00: mouth [place] 00 daily. Medical Branch buPROPion 2021-0 Yes [id number] 150mg Take 1 U nivers XL 4-12 tablet by ity of (WELLBUTRIN 00:00: mouth [place] XL) 150 mg 00 daily. Medical 24 hr Branch tablet busPIRone 2021-0 Yes [id number] 30mg Take 1 Un matt 30 mg 4-12 tablet by ity of tablet 00:00: mouth 2 [place] 00 (two) Medical times Branch daily. SERTraline 0 Yes [id number] 200mg Take 2 [facility] 100 mg 4-12 tablets by ity of tablet 00:00: mouth [place] 00 daily. Medical Branch buPROPion 0 Yes [id number] 150mg Take 1 U nivers XL 4-12 tablet by ity of (WELLBUTRIN 00:00: mouth [place] XL) 150 mg 00 daily. Medical 24 hr Branch tablet busPIRone 0 Yes [id number] 30mg Take 1 Un matt 30 mg 4-12 tablet by ity of tablet 00:00: mouth 2 [place] 00 (two) Medical times Branch daily. SERTraline 0 Yes [id number] 200mg Take 2 [facility] 100 mg 4-12 tablets by ity of tablet 00:00: mouth [place] 00 daily. Medical Branch buPROPion 0 Yes [id number] 150mg Take 1 [facility] nivers XL 4-12 tablet by ity of (WELLBUTRIN 00:00: mouth [place] XL) 150 mg 00 daily. Medical 24 hr Branch tablet busPIRone 2021-0 Yes [id number] 30mg Take 1 Un matt 30 mg 4-12 tablet by ity of tablet 00:00: mouth 2 [place] 00 (two) Medical times Branch daily. SERTraline 0 Yes [id number] 200mg Take 2 [facility] 100 mg 4-12 tablets by ity of tablet 00:00: mouth [place] 00 daily. Medical Branch buPROPion 0 Yes [id number] 150mg Take 1 U nivers XL 4-12 tablet by ity of (WELLBUTRIN 00:00: mouth [place] XL) 150 mg 00 daily. Medical 24 hr Branch tablet busPIRone 2021-0 Yes [id number] 30mg Take 1 Un matt 30 mg 4-12 tablet by ity of tablet 00:00: mouth 2 [place] 00 (two) Medical times Branch daily. SERTraline 2021-0 Yes [id number] 200mg Take 2 [facility] 100 mg 4-12 tablets by ity of tablet 00:00: mouth [place] 00 daily. Medical Branch raltegravir 2021-0 Yes [id number] 400mg Take 1 [facility] (ISENTRESS) 3-28 tablet by ity of 400 mg 00:00: mouth 2 [place] tablet 00 (two) Medical times Branch daily. raltegravir 2021-0 Yes [id number] 400mg Take 1 [facility] (ISENTRESS) 3-28 tablet by ity of 400 mg 00:00: mouth 2 [place] tablet 00 (two) Medical times Branch daily. raltegravir 2021-0 Yes [id number] 400mg Take 1 [facility] (ISENTRESS) 3-28 tablet by ity of 400 mg 00:00: mouth 2 [place] tablet 00 (two) Medical times Branch daily. raltegravir 2021-0 Yes [id number] 400mg Take 1 [facility] (ISENTRESS) 3-28 tablet by ity of 400 mg 00:00: mouth 2 [place] tablet 00 (two) Medical times Branch daily. raltegravir 2021-0 Yes [id number] 400mg Take 1 [facility] (ISENTRESS) 3-28 tablet by ity of 400 mg 00:00: mouth 2 [place] tablet 00 (two) Medical times Branch daily. raltegravir 2021-0 Yes [id number] 400mg Take 1 [facility] (ISENTRESS) 3-28 tablet by ity of 400 mg 00:00: mouth 2 [place] tablet 00 (two) Medical times Branch daily. raltegravir 2021-0 Yes [id number] 400mg Take 1 [facility] (ISENTRESS) 3-28 tablet by ity of 400 mg 00:00: mouth 2 [place] tablet 00 (two) Medical times Branch daily. raltegravir 2021-0 Yes [id number] 400mg Take 1 [facility] (ISENTRESS) 3-28 tablet by ity of 400 mg 00:00: mouth 2 [place] tablet 00 (two) Medical times Branch daily. raltegravir 2021-0 Yes [id number] 400mg Take 1 [facility] (ISENTRESS) 3-28 tablet by ity of 400 mg 00:00: mouth 2 [place] tablet 00 (two) Medical times Branch daily. raltegravir 2022-0 Yes [id number] 400mg Take 1 [facility] (ISENTRESS) 3-28 tablet by ity of 400 mg 00:00: mouth 2 [place] tablet 00 (two) Medical times Branch daily. raltegravir 2022-0 Yes [id number] 400mg Take 1 [facility] (ISENTRESS) 3-28 tablet by ity of 400 mg 00:00: mouth 2 [place] tablet 00 (two) Medical times Branch daily. raltegravir 2022-0 Yes [id number] 400mg Take 1 [facility] (ISENTRESS) 3-28 tablet by ity of 400 mg 00:00: mouth 2 [place] tablet 00 (two) Medical times Branch daily. raltegravir 2022-0 Yes [id number] 400mg Take 1 [facility] (ISENTRESS) 3-28 tablet by ity of 400 mg 00:00: mouth 2 [place] tablet 00 (two) Medical times Branch daily. raltegravir 2-0 Yes [id number] 400mg Take 1 [facility] (ISENTRESS) 3-28 tablet by ity of 400 mg 00:00: mouth 2 [place] tablet 00 (two) Medical times Branch daily. raltegravir 2-0 Yes [id number] 400mg Take 1 [facility] (ISENTRESS) 3-28 tablet by ity of 400 mg 00:00: mouth 2 [place] tablet 00 (two) Medical times Branch daily. raltegravir 2022-0 Yes [id number] 400mg Take 1 [facility] (ISENTRESS) 3-28 tablet by ity of 400 mg 00:00: mouth 2 [place] tablet 00 (two) Medical times Branch daily. raltegravir 2022-0 Yes [id number] 400mg Take 1 [facility] (ISENTRESS) 3-28 tablet by ity of 400 mg 00:00: mouth 2 [place] tablet 00 (two) Medical times Branch daily. raltegravir 2022-0 Yes [id number] 400mg Take 1 [facility] (ISENTRESS) 3-28 tablet by ity of 400 mg 00:00: mouth 2 [place] tablet 00 (two) Medical times Branch daily. raltegravir 2022-0 Yes [id number] 400mg Take 1 [facility] (ISENTRESS) 3-28 tablet by ity of 400 mg 00:00: mouth 2 [place] tablet 00 (two) Medical times Branch daily. raltegravir Yes [id number] 400mg Take 1 [facility] (ISENTRESS) 3-28 tablet by ity of 400 mg 00:00: mouth 2 [place] tablet 00 (two) Medical times Branch daily. raltegravir 2022- No [id number] 400mg Take 1 [facility] (ISENTRESS) 3-28 05-08 tablet by it y of 400 mg 00:00: 00:00 mouth 2 [place] tablet 00 :00 (two) Medical times Branch daily. LORazepam 1 2021- No [id number] 1mg Take 1 [facility] mg tablet 3- [...] times a tablet day. emtricitabi 2021- No [id number] Take one [facility] ne-tenofovi 1-20 09-12 po daily ity of r alafen 00:00: 00:00 [place] (DESCOVY) 00 :00 Medical tablet Branch metoprolol Yes [id number] Take 1 [facility] tartrate 7-26 tablet [facility] (Lopressor) 00:00: (100 mg 100 MG 00 total) by tablet mouth 2 (two) times a day AND 0.5 tablets (50 mg total) every night. metoprolol Yes [id number] Take 1 [facility] tartrate 7-26 [facility] [...] (affected area in groin) hydrALAZINE Yes 50mg Q.[id number] Take 50 mg [facility] (APRESOLINE 7-19 [id number] [facility] mouth [facility] ) 50 MG [...] area in groin) hydrALAZINE 0 Yes 50mg Q.[id number] Take 50 mg [facility] (APRESOLINE 7-19 [id number] [facility] mouth [facility] ) 50 MG [...] area in groin) hydrALAZINE 2021-0 Yes 50mg Q.[id number] Take 50 mg [facility] (APRESOLINE 7-19 [id number] [address] mouth 3 [facility] ) 50 MG [...] (affected area in groin) hydrALAZINE Yes 50mg Q.[id number] Take 50 mg [facility] (APRESOLINE 7-19 [id number] by mouth 3 st ) 50 MG [...] area in groin) hydrALAZINE 0 Yes 50mg Q.[id number] Take 50 mg [facility] (APRESOLINE 7-19 [id number] mouth 3 [facility] ) 50 MG [...] area in groin) hydrALAZINE 0 Yes 50mg Q.[id number] Take 50 mg [facility] (APRESOLINE 7-19 [id number] mouth 3 [facility] ) 50 MG [...] (affected area in groin) hydrALAZINE Yes 50mg Q.[id number] Take 50 mg [facility] (APRESOLINE 7-19 [id number] mouth 3 [facility] ) 50 MG [...] (affected area in groin) hydrALAZINE Yes 50mg Q.[id number] Take 50 mg [facility] (APRESOLINE 7-19 [id number] [address] mouth 3 [facility] ) 50 MG [...] area in groin) hydrALAZINE 0 Yes 50mg Q.99060477 Take 50 mg [facility] (APRESOLINE 7-19 [id number] [address] mouth 3 [facility] ) 50 MG [...] area in groin) hydrALAZINE 0 Yes 50mg Q.[id number] Take 50 mg [facility] (APRESOLINE 7-19 [id number] mouth 3 [facility] ) 50 MG [...] (affected area in groin) hydrALAZINE Yes 50mg Q.[id number] Take 50 mg [facility] (APRESOLINE 7-19 [id number] mouth 3 [facility] ) 50 MG [...] area in groin) hydrALAZINE 0 Yes 50mg Q.[id number] Take 50 mg [facility] (APRESOLINE 7-19 [id number] mouth 3 [facility] ) 50 MG [...] area in groin) hydrALAZINE 0 Yes 50mg Q.[id number] Take 50 mg [facility] (APRESOLINE 7-19 [id number] [address] mouth 3 [facility] ) 50 MG [...] (affected area in groin) hydrALAZINE Yes 50mg Q.[id number] Take 50 mg [facility] (APRESOLINE 7-19 [id number] mouth 3 [facility] ) 50 MG [...] area in groin) hydrALAZINE 0 Yes 50mg Q.24506145 Take 50 mg [facility] (APRESOLINE 7-19 [id number] [address] mouth 3 [facility] ) 50 MG [...] area in groin) hydrALAZINE 0 Yes 50mg Q.69172720 Take 50 mg [facility] (APRESOLINE 7-19 [id number] mouth 3 [facility] ) 50 MG [...] area in groin) hydrALAZINE 0 Yes 50mg Q.66953614 Take 50 mg [facility] (APRESOLINE 7-19 [id number] [address] mouth [facility] [address] ) 50 MG [...] (affected area in groin) hydrALAZINE Yes 50mg Q.53486194 Take 50 mg [facility] (APRESOLINE 7-19 [id number] [address] mouth 3 [address] ) 50 MG [...] area in groin) hydrALAZINE 2020-0 Yes 50mg Q.[id number] Take 50 mg [facility] (APRESOLINE -19 [id number] [address] mouth [facility] ) 50 MG [...] area in groin) hydrALAZINE 0 Yes 50mg Q.12868137 Take 50 mg [facility] (APRESOLINE 7-19 [id number] [address] mouth 3 [facility] ) 50 MG [...] (affected area in groin) hydrALAZINE Yes 50mg Q.[id number] Take 50 mg [facility] (APRESOLINE 7-19 [id number] mouth 3 [address] ) 50 MG [...] area in groin) hydrALAZINE 0 Yes 50mg Q.60508889 Take 50 mg [facility] (APRESOLINE - [id number] by mouth 3 st ) 50 MG [...] area in groin) hydrALAZINE 0 Yes 50mg Q.[id number] Take 50 mg [facility] (APRESOLINE -19 [id number] [address] mouth 3 [address] ) 50 MG [...] area in groin) hydrALAZINE 0 Yes 50mg Q.38102567 Take 50 mg [facility] (APRESOLINE 7-19 [id number] mouth 3 [address] ) 50 MG [...] area in groin) hydrALAZINE 0 Yes 50mg Q.[id number] Take 50 mg [facility] (APRESOLINE -19 [id number] [address] mouth [facility] [address] ) 50 MG [...] area in groin) hydrALAZINE 2020-0 Yes 50mg Q.[id number] Take 50 mg [facility] (APRESOLINE -19 [id number] [facility] mouth 3 [facility] ) 50 MG [...] area in groin) hydrALAZINE 0 Yes 50mg Q.69967218 Take 50 mg [facility] (APRESOLINE 7-19 [id number] mouth 3 [address] ) 50 MG [...] (affected area in groin) hydrALAZINE Yes 50mg Q.70239652 Take 50 mg [facility] (APRESOLINE 7-19 [id number] mouth 3 [facility] ) 50 MG [...] (affected area in groin) hydrALAZINE Yes 50mg Q.64915096 Take 50 mg [facility] (APRESOLINE 7-19 [id number] [address] mouth 3 [facility] ) 50 MG [...] area in groin) hydrALAZINE 0 Yes 50mg Q.96171454 Take 50 mg [facility] (APRESOLINE 7-19 [id number] mouth 3 [facility] ) 50 MG [...] (affected area in groin) hydrALAZINE Yes 50mg Q.10113669 Take 50 mg [facility] (APRESOLINE 7-19 [id number] [address] mouth [facility] ) 50 MG [...] area in groin) hydrALAZINE 0 Yes 50mg Q.[id number] Take 50 mg [facility] (APRESOLINE 7-[id number] mouth [facility] ) 50 MG [...] area in groin) hydrALAZINE 0 Yes 50mg Q.98369127 Take 50 mg [facility] (APRESOLINE 7-[id number] mouth 3 [address] ) 50 MG [...] (affected area in groin) hydrALAZINE Yes 50mg Q.[id number] Take 50 mg [facility] (APRESOLINE 7-19 [id number] mouth 3 [address] ) 50 MG [...] area in groin) hydrALAZINE 0 Yes 50mg Q.45243143 Take 50 mg [facility] (APRESOLINE 7-[id number] mouth 3 [address] ) 50 MG [...] (affected area in groin) hydrALAZINE Yes 50mg Q.39989802 Take 50 mg [facility] (APRESOLINE 7-[id number] mouth 3 [facility] ) 50 MG [...] (affected area in groin) hydrALAZINE Yes 50mg Q.65516049 Take 50 mg [facility] (APRESOLINE 7-[id number] mouth 3 [address] ) 50 MG [...] (affected area in groin) hydrALAZINE Yes 50mg Q.[id number] Take 50 mg [facility] (APRESOLINE 7-19 [id number] mouth 3 [address] ) 50 MG [...] area in groin) hydrALAZINE 0 Yes 50mg Q.56116310 Take 50 mg [facility] (APRESOLINE 7-[id number] mouth 3 [address] ) 50 MG [...] area in groin) hydrALAZINE 0 Yes 50mg Q.77720716 Take 50 mg [facility] (APRESOLINE 7-[id number] mouth [facility] [address] ) 50 MG [...] (affected area in groin) hydrALAZINE Yes 50mg Q.[id number] Take 50 mg [facility] (APRESOLINE 7-[id number] mouth 3 [address] ) 50 MG [...] area in groin) hydrALAZINE 0 Yes 50mg Q.[id number] Take 50 mg [facility] (APRESOLINE 7-19 [id number] [address] mouth 3 [address] ) 50 MG [...] area in groin) hydrALAZINE 2020-0 Yes 50mg Q.64839065 Take 50 mg [facility] (APRESOLINE 7-19 [id number] mouth 3 [address] ) 50 MG [...] (affected area in groin) hydrALAZINE Yes 50mg Q.37089769 Take 50 mg [facility] (APRESOLINE 7-[id number] mouth [address] ) 50 MG [...] area in groin) hydrALAZINE 0 Yes 50mg Q.61405966 Take 50 mg [facility] (APRESOLINE 7-[id number] mouth [address] ) 50 MG [...] area in groin) hydrALAZINE 0 Yes 50mg Q.97816420 Take 50 mg [facility] (APRESOLINE 7-[id number] mouth 3 [address] ) 50 MG [...] (affected area in groin) hydrALAZINE Yes 50mg Q.52902725 Take 50 mg [facility] (APRESOLINE 7-[id number] mouth [facility] [address] ) 50 MG [...] (affected area in groin) hydrALAZINE Yes 50mg Q.15711518 Take 50 mg [facility] (APRESOLINE 7-[id number] mouth 3 [address] ) 50 MG [...] area in groin) hydrALAZINE 0 Yes 50mg Q.70062140 Take 50 mg [facility] (APRESOLINE 7-[id number] mouth [facility] ) 50 MG [...] area in groin) hydrALAZINE 2021-0 Yes 50mg Q.98935155 Take 50 mg [facility] (APRESOLINE 7-[id number] mouth 3 [facility] ) 50 MG [...] (affected area in groin) hydrALAZINE Yes 50mg Q.06485391 Take 50 mg [facility] (APRESOLINE 7-19 [id number] mouth 3 [facility] ) 50 MG [...] area in groin) hydrALAZINE 0 Yes 50mg Q.[id number] Take 50 mg [facility] (APRESOLINE 7-[id number] mouth 3 [address] ) 50 MG [...] area in groin) hydrALAZINE 0 Yes 50mg Q.18685003 Take 50 mg [facility] (APRESOLINE 7-19 [id number] mouth 3 [address] ) 50 MG [...] (affected area in groin) hydrALAZINE Yes 50mg Q.25022000 Take 50 mg [facility] (APRESOLINE 7-[id number] mouth 3 [address] ) 50 MG [...] (affected area in groin) hydrALAZINE Yes 50mg Q.[id number] Take 50 mg [facility] (APRESOLINE 7-[id number] mouth 3 [address] ) 50 MG [...] area in groin) hydrALAZINE 2021-0 Yes 50mg Q.[id number] Take 50 mg [facility] (APRESOLINE 7-[id number] mouth 3 [address] ) 50 MG [...] (affected area in groin) hydrALAZINE Yes 50mg Q.46935105 Take 50 mg [facility] (APRESOLINE 7-[id number] mouth [address] ) 50 MG [...] (affected area in groin) hydrALAZINE Yes 50mg Q.10072715 Take 50 mg [facility] (APRESOLINE 7-[id number] mouth [address] ) 50 MG [...] area in groin) hydrALAZINE 0 Yes 50mg Q.[id number] Take 50 mg [facility] (APRESOLINE 7-19 [id number] by mouth 3 [facility] ) 50 MG [...] daily. [facility] tablet 25 l nystatin-tr Yes [id number] Apply to [facility] 11-25 area(s) 3 ity of cream 00:00: (three) [place] 00 times Medical daily. Branch nystatin-tr 2021-0 Yes [id number] Apply to [facility] iamcinolone 7-06 area(s) 3 ity of cream 00:00: (three) [place] 00 times Medical daily. Branch nystatin-tr 2021-0 Yes [id number] Apply to [facility] iamcinolone 7-06 area(s) 3 ity of cream 00:00: (three) [place] 00 times Medical daily. Branch nystatin-tr 2021-0 Yes [id number] Apply to [facility] iamcinolone 7-06 area(s) 3 ity of cream 00:00: (three) [place] 00 times Medical daily. Branch nystatin-tr 2021-0 Yes [id number] Apply to [facility] iamcinolone 7-06 area(s) 3 ity of cream 00:00: (three) [place] 00 times Medical daily. Branch nystatin-tr 2021-0 Yes [id number] Apply to [facility] iamcinolone 7-06 area(s) 3 ity of cream 00:00: (three) [place] 00 times Medical daily. Branch nystatin-tr 2021-0 Yes [id number] Apply to [facility] iamcinolone 7-06 area(s) 3 ity of cream 00:00: (three) [place] 00 times Medical daily. Branch nystatin-tr 2021-0 Yes [id number] Apply to [facility] iamcinolone 7-06 area(s) 3 ity of cream 00:00: (three) [place] 00 times Medical daily. Branch nystatin-tr 2021-0 Yes [id number] Apply to [facility] iamcinolone 7-06 area(s) 3 ity of cream 00:00: (three) [place] 00 times Medical daily. Branch nystatin-tr 2021-0 Yes [id number] Apply to [facility] iamcinolone 7-06 area(s) 3 ity of cream 00:00: (three) [place] 00 times Medical daily. Branch nystatin-tr 2021-0 Yes [id number] Apply to [facility] iamcinolone 7-06 area(s) 3 ity of cream 00:00: (three) [place] 00 times Medical daily. Branch nystatin-tr 2021-0 Yes [id number] Apply to [facility] iamcinolone 7-06 area(s) 3 ity of cream 00:00: (three) [place] 00 times Medical daily. Branch nystatin-tr 2021-0 Yes [id number] Apply to [facility] iamcinolone 7-06 area(s) 3 ity of cream 00:00: (three) [place] 00 times Medical daily. Branch nystatin-tr 2021-0 Yes [id number] Apply to [facility] iamcinolone 7-06 area(s) 3 ity of cream 00:00: (three) [place] 00 times Medical daily. Branch nystatin-tr 2021-0 Yes [id number] Apply to [facility] iamcinolone 7-06 area(s) 3 ity of cream 00:00: (three) [place] 00 times Medical daily. Branch nystatin-tr 2021-0 Yes [id number] Apply to [facility] iamcinolone 7-06 area(s) 3 ity of cream 00:00: (three) [place] 00 times Medical daily. Branch nystatin-tr 2021-0 Yes [id number] Apply to [facility] iamcinolone 7-06 area(s) 3 ity of cream 00:00: (three) [place] 00 times Medical daily. Branch nystatin-tr 2021-0 Yes [id number] Apply to [facility] iamcinolone 7-06 area(s) 3 ity of cream 00:00: (three) [place] 00 times Medical daily. Branch nystatin-tr 2021-0 Yes [id number] Apply to [facility] iamcinolone 7-06 area(s) 3 ity of cream 00:00: (three) [place] 00 times Medical daily. Branch nystatin-tr 2021-0 Yes [id number] Apply to [facility] iamcinolone 7-06 area(s) 3 ity of cream 00:00: (three) [place] 00 times Medical daily. Branch nystatin-tr 2021-0 Yes [id number] Apply to [facility] iamcinolone 7-06 area(s) 3 ity of cream 00:00: (three) [place] 00 times Medical daily. Branch nystatin-tr 2021-0 Yes [id number] Apply to [facility] iamcinolone 7-06 area(s) 3 ity of cream 00:00: (three) [place] 00 times Medical daily. Branch budesonide- 2020-0 2021- No 1{puff} QD Inhale 1 [facility] formoteroL 6-25 06-[address] (SYMBICORT) 14:37: 00:00 morning. H [facility]spita 160-4.5 02 :00 l mcg/actuati on inhaler hydrALAZINE 0 Yes [id number] 50mg Q.94263300 Take 1 [facility] (Apresoline 6-11 [id number] tablet (50 Health ) 50 MG 00:00: 3D mg total) tablet 00 by mouth 3 (three) times a day. hydrALAZINE 0 Yes [id number] 50mg Q.55139668 Take 1 [facility] (Apresoline 6-11 [id number] tablet (50 Health ) 50 MG 00:00: [...] 00:00: ointment 00 nystatin 2020-0 2021- No [id number] Q.25D Take 5 mL [facility] (MYCOSTATIN 5-17 [...] e 4-10 Tablet l 14:00: should not [place] 00 be chewed or crushed. (Same as: [...] e 4-10 Tablet l 14:00: should not [place] 00 be chewed or crushed. (Same as: [...] e 4-10 Tablet l 14:00: should not [place] 00 be chewed or crushed. (Same as: Protonix) Amiodarone No Notes: Memor ia 4-10 (Same as: l 14:00: Cordarone) [place] 00 Amlodipine No Notes: Memor ia 4-10 (Same as: l 14:00: Norvasc) [place] emtricitabi No Notes: Caesar lisa ne 200 MG / 4-10 (Same as: l tenofovir 14:00: Descovy) Herm ariel alafenamide 00 Non-formul 25 MG Oral nancy Tablet [Descovy] Sertraline No Notes: Memor ia 4-10 (Same as: l 14:00: Zoloft) [place] pantoprazol No Notes: Caesar lisa e 4-10 Tablet l 14:00: should not [place] 00 be chewed or crushed. (Same as: Protonix) Amiodarone No Notes: Memor ia 4-10 (Same as: l 14:00: Cordarone) Lee Amlodipine No Notes: Memor ia 4-10 (Same [...] 0.9% 4-10 (Same as: l 02:00: BD Lee Posiflush) Eliquis No Notes: Memoria 4-10 Same as: l 02:00: Eliquis Lee Hydralazine No Notes: Caesar lisa Hydrochlori 4-10 (Same as: l de 50 MG 02:00: Apresoline Her mitchell Oral Tablet 00 ) May interfere w/enteral feedings Take With Food Sucralfate No Notes: May M emoria 4-10 interfere l 02:00: w/enteral Lee 00 feeds - Take 1 hr before [...] Memoria 4-10 Same as: l 02:00: Eliquis [place] 00 Hydralazine No Notes: Caesar lisa Hydrochlori 4-10 (Same as: l de 50 MG 02:00: Apresoline Her mitchell Oral Tablet 00 ) May interfere w/enteral feedings Take With Food Sucralfate No Notes: May M emoria 4-10 interfere l 02:00: w/enteral [place] 00 feeds - Take 1 hr before or 2 hr after antacids, dairy pdt, meals & minerals - On empty stomach. For patients unable to swallow tablet, dissolve in 10mL - 30mL of water or juice and stir before giving. (Same As: Carafate) Saline No Notes: Memoria Flush 0.9% 4-10 (Same as: l 02:00: BD [place] Posiflush) Eliquis No Notes: Memoria 4-10 Same [...] 0.9% 4-10 (Same as: l 02:00: BD Lee 00 Posiflush) Eliquis No Notes: Memoria 4-10 Same as: l 02:00: Eliquis Marty Hydralazine No Notes: Caesar lisa Hydrochlori 4-10 (Same as: l de 50 MG 02:00: Apresoline Her mitchell Oral Tablet 00 ) May interfere w/enteral feedings Take With Food Sucralfate No Notes: May M emoria 4-10 interfere l 02:00: w/enteral [place] 00 feeds - Take 1 hr before or 2 hr after antacids, dairy pdt, meals & minerals - On empty stomach. For patients unable to swallow tablet, dissolve in 10mL - 30mL of water or juice and stir before giving. (Same As: Carafate) Saline No Notes: Memoria Flush 0.9% 4-10 (Same as: l 02:00: BD [place] 00 Posiflush) Eliquis No Notes: Memoria 4-10 Same as: l 02:00: Eliquis Lee Hydralazine No Notes: Caesar lisa Hydrochlori 4-10 (Same as: l de 50 MG 02:00: Apresoline Her mitchell Oral Tablet 00 ) May interfere w/enteral feedings Take With Food Sucralfate No Notes: May M emoria 4-10 interfere l 02:00: w/enteral [place] 00 feeds - Take 1 hr before or 2 hr after antacids, dairy pdt, meals & minerals - On empty stomach. For patients unable to swallow tablet, dissolve in 10mL - 30mL of water or juice and stir before giving. (Same As: Carafate) Saline No Notes: Memoria Flush 0.9% 4-10 (Same as: l 02:00: BD [place] Posiflush) Eliquis No Notes: Memoria 4-10 Same as: l 02:00: Eliquis [place] 00 Hydralazine No Notes: Caesar lisa Hydrochlori [...] 0.9% 4-10 (Same as: l 02:00: BD Lee Posiflush) Eliquis No Notes: Memoria 4-10 Same [...] not exceed l #3 00:12: 4gm/day of Lee acetaminop hen. (Same as: Tylenol with Codeine # 3) acetaminoph No Notes: Do M emoria en-codeine 4-10 not exceed l #3 00:12: 4gm/day of Lee acetaminop hen. (Same as: Tylenol with Codeine [...] not exceed l #3 00:12: 4gm/day of [place] acetaminop hen. (Same as: Tylenol with Codeine # 3) Buspirone No Notes: Memori a -09 (Same As: l 22:00: BuSpar) Lisinopril No 40 mg, 1 Mem oria 4-09 tab, l 22:00: Route: PO, Lee Drug form: TAB, BID, Dosing Weight 97.273, kg, Start date: 08/29/20 17:00:00 CDT, Duration: 30 day, Stop date: 09/28/20 9:00:00 CDT metoprolol No 100 mg, 1 Me moria tartrate - tab, l 22:00: Route: PO, Lee Drug form: TAB, BID, Dosing Weight 97.273, [...] oria 4-09 tab, l 22:00: Route: PO, Lee 00 Drug form: TAB, BID, Dosing Weight [...] tartrate 4-09 tab, l 22:00: Route: PO, Lee Drug form: TAB, BID, Dosing Weight 97.273, [...] tartrate 4-09 tab, l 22:00: Route: PO, Lee 00 Drug form: TAB, BID, Dosing Weight [...] oria 4-09 tab, l 22:00: Route: PO, Lee 00 Drug form: TAB, BID, Dosing Weight 97.273, kg, Start date: 08/29/20 17:00:00 CDT, Duration: 30 day, Stop date: 09/28/20 9:00:00 CDT metoprolol 2021-0 No 100 mg, 1 Me moria tartrate 4-09 tab, l 22:00: Route: PO, Lee Drug form: TAB, BID, Dosing Weight 97.273, [...] oria 4-09 tab, l 22:00: Route: PO, Lee Drug form: TAB, BID, Dosing Weight 97.273, kg, Start date: 08/29/20 17:00:00 CDT, Duration: 30 day, Stop date: 09/28/20 9:00:00 CDT metoprolol 2021-0 No 100 mg, 1 Me moria tartrate 4-09 tab, l 22:00: Route: PO, Lee Drug form: TAB, BID, Dosing Weight 97.273, [...] a 4-09 (Same As: l 22:00: BuSpar) Lee 00 Lisinopril No 40 mg, 1 Mem [...] Notes: Memoria 4-09 (Same l 17:07: as:MORPhin Lee 00 e Sulfate) Morphine No Notes: Memoria 4-09 (Same l 17:07: as:MORPhin Marty 00 e Sulfate) Morphine No Notes: Memoria 4-09 (Same l 17:07: as:MORPhin Marty 00 e Sulfate) Morphine No Notes: Memoria 4-09 (Same l 17:07: as:MORPhin Lee 00 e Sulfate) Morphine No Notes: Memoria [...] tab, 0 coated Refill(s), tablet Pharmacy: [facility] 149, 162.56, cm, 08/29/20 5:30:00 CDT, Height, 97.273, kg, 08/29/20 5:30:00 CDT, Weight pantoprazol 1-0 Yes 40 mg = 1 M emoria e 40 mg 4-09 tab, PO, l oral 15:27: Daily, # Marty enteric 00 30 tab, 0 coated Refill(s), tablet Pharmacy: [facility] 149, 162.56, cm, 08/29/20 5:30:00 CDT, Height, 97.273, kg, 08/29/20 5:30:00 CDT, Weight pantoprazol 1-0 Yes 40 mg = 1 M emoria e 40 mg 4-09 tab, PO, l oral 15:27: Daily, # Marty enteric 00 30 tab, 0 coated Refill(s), tablet Pharmacy: [facility] 149, 162.56, cm, 08/29/20 5:30:00 CDT, Height, 97.273, kg, 08/29/20 5:30:00 CDT, Weight pantoprazol 1-0 Yes 40 mg = 1 M emoria e 40 mg 4-09 tab, PO, l oral 15:27: Daily, # Marty enteric 00 30 tab, 0 coated Refill(s), tablet Pharmacy: [facility] 149, 162.56, cm, 08/29/20 5:30:00 CDT, Height, 97.273, kg, 08/29/20 5:30:00 CDT, Weight pantoprazol 2021-0 Yes 40 mg = 1 M emoria e 40 mg 4-09 tab, PO, l oral 15:27: Daily, # Lee enteric 00 30 tab, 0 coated Refill(s), tablet Pharmacy: [facility] 149, 162.56, cm, 08/29/20 5:30:00 CDT, Height, 97.273, kg, 08/29/20 5:30:00 CDT, Weight pantoprazol 2020-0 Yes 40 mg = 1 M emoria e 40 mg 4-09 tab, PO, l oral 15:27: Daily, # Lee enteric 00 30 tab, 0 coated Refill(s), tablet Pharmacy: [facility] 149, 162.56, cm, 08/29/20 5:30:00 CDT, Height, 97.273, kg, 08/29/20 5:30:00 CDT, Weight pantoprazol 2020-0 Yes 40 mg = 1 M emoria e 40 mg 4-09 tab, PO, l oral 15:27: Daily, # Marty enteric 00 30 tab, 0 coated Refill(s), tablet Pharmacy: [facility] 149, 162.56, cm, 08/29/20 5:30:00 CDT, Height, 97.273, kg, 08/29/20 5:30:00 CDT, Weight pantoprazol 2020-0 No 40 mg = 1 M emoria e 40 mg 4-09 tab, PO, l oral 15:26: Daily, # Lee enteric 00 30 tab, 0 coated Refill(s) tablet sucralfate 2020-0 Yes 1 gm = 1 Mem oria 1 g oral 4-09 tab, PO, l tablet 15:26: Q12H, # 28 Skylar nn 00 tab, 0 Refill(s), Pharmacy: [facility] 149, 162.56, cm, 08/29/20 5:30:00 CDT, Height, 97.273, kg, 08/29/20 5:30:00 CDT, Weight pantoprazol 2020-0 No 40 mg = 1 M emoria e 40 mg 4-09 tab, PO, l oral 15:26: Daily, # Lee enteric 00 30 tab, 0 coated Refill(s) tablet sucralfate 2020-0 Yes 1 gm = 1 Mem oria 1 g oral 4-09 tab, PO, l tablet 15:26: Q12H, # 28 Skylar nn 00 tab, 0 Refill(s), Pharmacy: [facility] 149, 162.56, cm, 08/29/20 5:30:00 CDT, Height, 97.273, kg, 08/29/20 5:30:00 CDT, Weight pantoprazol 2020-0 No 40 mg = 1 M emoria e 40 mg 4-09 tab, PO, l oral 15:26: Daily, # Lee enteric 00 30 tab, 0 coated Refill(s) tablet sucralfate 2020-0 Yes 1 gm = 1 Mem oria 1 g oral 4-09 tab, PO, l tablet 15:26: Q12H, # 28 Skylar nn 00 tab, 0 Refill(s), Pharmacy: [facility] [id number], 162.56, cm, 08/29/20 5:30:00 CDT, Height, 97.273, kg, 08/29/20 5:30:00 CDT, Weight pantoprazol 2020-0 No 40 mg = 1 M emoria e 40 mg 4-09 tab, PO, l oral 15:26: Daily, # Lee enteric 00 30 tab, 0 coated Refill(s) tablet sucralfate 2020-0 Yes 1 gm = 1 Mem oria 1 g oral 4-09 tab, PO, l tablet 15:26: Q12H, # 28 Skylar nn 00 tab, 0 Refill(s), Pharmacy: [facility] [id number], 162.56, cm, 08/29/20 5:30:00 CDT, Height, 97.273, kg, 08/29/20 5:30:00 CDT, Weight pantoprazol 2020-0 No 40 mg = 1 M emoria e 40 mg 4-09 tab, PO, l oral 15:26: Daily, # Lee enteric 00 30 tab, 0 coated Refill(s) tablet sucralfate 2020-0 Yes 1 gm = 1 Mem oria 1 g oral 4-09 tab, PO, l tablet 15:26: Q12H, # 28 Skylar nn 00 tab, 0 Refill(s), Pharmacy: [facility] [id number], 162.56, cm, 08/29/20 5:30:00 CDT, Height, 97.273, kg, 08/29/20 5:30:00 CDT, Weight pantoprazol No 40 mg = 1 M emoria e 40 mg 4-09 tab, PO, l oral 15:26: Daily, # Lee enteric 00 30 tab, 0 coated Refill(s) tablet sucralfate Yes 1 gm = 1 Mem oria 1 g oral 4-09 tab, PO, l tablet 15:26: Q12H, # 28 Skylar nn 00 tab, 0 Refill(s), Pharmacy: [id number], 162.56, cm, 08/29/20 5:30:00 [...] nn 00 tab, 0 Refill(s), Pharmacy: [facility], 162.56, cm, 08/29/20 5:30:00 CDT, Height, 97.273, kg, 08/29/20 5:30:00 CDT, Weight Saline No Notes: Memoria Flush 0.9% 4-09 (Same as: l 15:25: BD Lee Posiflush) Lorazepam No Notes: Memori a 4-09 (Same as: l 15:25: Ativan) Marty Saline No Notes: Memoria Flush 0.9% 4-09 (Same as: l 15:25: BD Marty 00 Posiflush) Lorazepam No Notes: Memori a 4-09 (Same as: l 15:25: Ativan) Lee Saline No Notes: Memoria Flush 0.9% 4-09 (Same as: l 15:25: BD Marty 00 Posiflush) Saline No Notes: Memoria Flush 0.9% 4-09 (Same as: l 15:25: BD Marty 00 Posiflush) Lorazepam No Notes: Memori a 4-09 (Same as: l 15:25: Ativan) Lee 00 Lorazepam No Notes: Memori a 4-09 (Same as: l 15:25: Ativan) Lee 00 Saline No Notes: Memoria Flush 0.9% 4-09 (Same as: l 15:25: BD Lee 00 Posiflush) Lorazepam No Notes: Memori a [...] Drug form: l mg + 15:00: INJ, Lee 00 Dosing Weight 97.3, kg, Start date: [...] 08-29 Route: PO, l 14:01: Drug form: Lee 00 TAB, ONCE, Dosing Weight 97.273, kg, [...] Memori a 08-29 Route: l 14:01: IVP, Lee 00 Q2MIN, Dosing Weight 97.273, kg, PRN [...] Memori a 08-29 Route: l 14:01: IVP, Lee 00 Q5Min, Dosing Weight 97.273, kg, PRN [...] oria ne 08-29 Route: l 14:01: IVP, Lee 00 Q5Min, Dosing Weight 97.273, kg, PRN [...] Memori a 08-29 Route: l 14:01: IVP, Lee 00 Q2MIN, Dosing Weight 97.273, kg, PRN [...] 08-29 Route: PO, l 14:01: Drug form: Lee 00 TAB, ONCE, Dosing Weight 97.273, kg, [...] oria ne 08-29 Route: l 14:01: IVP, Lee 00 Q5Min, Dosing Weight 97.273, kg, PRN [...] ia 08-29 Route: l 14:01: IVP, ONCE, Lee 00 Dosing Weight 97.273, kg, PRN Nausea & Vomiting, Start date: 08/29/20 9:01:00 CDT Labetalol 2021-0 No 10 mg, Memori a 08-29 Route: l 14:01: IVP, Lee 00 Q5Min, Dosing Weight 97.273, kg, PRN Elevated BP, Start date: 08/29/20 9:01:00 CDT, Duration: 5 doses or times, Stop date: Limited # of times Acetaminoph 2021-0 No 1,000 mg, M emoria en 08-29 Route: PO, l 14:01: Drug form: Lee 00 TAB, ONCE, Dosing Weight 97.273, kg, [...] oria ne 08-29 Route: l 14:01: IVP, Lee 00 Q5Min, Dosing Weight 97.273, kg, PRN Pain Score 7-10, Start date: 08/29/20 9:01:00 CDT, Duration: 4 doses or times, Stop date: Limited # of times Labetalol 2021-0 No 10 mg, Memori a 08-29 Route: l 14:01: IVP, Lee 00 Q5Min, Dosing Weight 97.273, kg, PRN [...] oria ne 08-29 Route: l 14:01: IVP, Lee 00 Q5Min, Dosing Weight 97.273, kg, PRN [...] Memori a 08-29 Route: l 14:01: IVP, Lee 00 Q2MIN, Dosing Weight 97.273, kg, PRN Narcotic Reversal, Start date: 08/29/20 9:01:00 CDT, Duration: 8 doses or times, Stop date: Limited # of times Flumazenil 1-0 No 0.2 mg, Caesar lisa 08-29 Route: l 14:01: IVP, PRN, Lee 00 Dosing Weight 97.273, kg, PRN Benzodiaze [...] Memori a 08-29 Route: l 14:01: IVP, Lee 00 Q2MIN, Dosing Weight 97.273, kg, PRN [...] of times Flumazenil 2020-0 No 0.2 mg, Acesar lisa 08-29 Route: l 14:01: IVP, PRN, Lee 00 Dosing Weight 97.273, kg, PRN Benzodiaze pine Reversal, Initial dose, Start date: 08/29/20 9:01:00 CDT, Duration: 30 day, Stop date: 09/28/20 9:00:00 CDT Naloxone 1-0 No 0.4 mg, Memori a 08-29 Route: l 14:01: IVP, Lee 00 Q2MIN, Dosing Weight 97.273, kg, PRN [...] Memori a 08-29 Route: l 14:01: IVP, Lee 00 Q5Min, Dosing Weight 97.273, kg, PRN [...] oria ne 08-29 Route: l 14:01: IVP, Lee 00 Q5Min, Dosing Weight 97.273, kg, PRN [...] 08-29 Drug form: l 13:42: INJ, ONCE, Lee 00 Stop date: 08/29/20 8:42:00 CDT fentaNYL [...] Drug form: l 10 13:15: INJ, Start Lee microgram date: 08/29/20 8:15:00 CDT, Stop date: 08/29/20 9:15:00 CDT norepinephr 2020-0 No Route: IV, Memoria ine (ANES) 08-29 Drug form: l 10 13:15: INJ, Start Marty microgram date: 08/29/20 8:15:00 CDT, Stop date: 08/29/20 9:15:00 CDT norepinephr 2020-0 No Route: IV, Memoria ine (ANES) 08-29 Drug form: l 10 13:15: INJ, Start Lee microgram date: 08/29/20 8:15:00 CDT, Stop date: 08/29/20 9:15:00 CDT norepinephr 2020-0 No Route: IV, Memoria ine (ANES) 08-29 Drug form: l 10 13:15: INJ, Start Lee microgram 00 date: 08/29/20 8:15:00 CDT, Stop date: 08/29/20 9:15:00 CDT norepinephr 2020-0 No Route: IV, Memoria ine (ANES) 08-29 Drug form: l 10 13:15: INJ, Start Lee microgram date: 08/29/20 8:15:00 CDT, Stop date: 08/29/20 9:15:00 CDT norepinephr 2020-0 No Route: IV, Memoria ine (ANES) 4-09 Drug form: l 10 13:15: INJ, Start Lee microgram 00 date: 08/29/20 8:15:00 CDT, Stop date: 08/29/20 9:15:00 CDT Sodium 2020-0 No Route: IV, Memor ia Chloride 4-09 Total l 0.9% IV 12:30: Volume: Marty (ANES) 1000 00 1,000, mL Start date: 08/29/20 7:30:00 CDT, Stop date: 08/29/20 8:30:00 CDT Sodium 2020-0 No Route: IV, Memor ia Chloride 4-09 Total l 0.9% IV 12:30: Volume: Lee (ANES) 1000 00 1,000, mL Start date: 08/29/20 7:30:00 CDT, Stop date: 08/29/20 8:30:00 CDT Sodium 2020-0 No Route: IV, Memor ia Chloride 4-09 Total l 0.9% IV 12:30: Volume: Lee (ANES) 1000 00 1,000, mL Start date: 08/29/20 7:30:00 CDT, Stop date: 08/29/20 8:30:00 CDT Sodium 2021-0 No Route: IV, Memor ia Chloride 4-09 Total l 0.9% IV 12:30: Volume: Lee (ANES) 1000 00 1,000, mL Start date: 08/29/20 7:30:00 CDT, Stop date: 08/29/20 8:30:00 CDT Sodium 2020-0 No Route: IV, Memor ia Chloride 4-09 Total l 0.9% IV 12:30: Volume: Marty (ANES) 1000 00 1,000, mL Start date: 08/29/20 7:30:00 CDT, Stop date: 08/29/20 8:30:00 CDT Sodium 202-0 No Route: IV, Memor ia Chloride 4-09 Total l 0.9% IV 12:30: Volume: Lee (ANES) 1000 00 1,000, mL Start date: 08/29/20 7:30:00 CDT, Stop date: 08/29/20 8:30:00 CDT Sodium 0 No Route: IV, Memor ia Chloride 08-29 [...] PO, l Hydrochlori 11:42: Q24H, # 30 Lee de 150 MG 00 tab, 0 Extended Refill(s) Release Tablet 24 HR Yes 150 mg = 1 Memori a Bupropion 4-09 tab, PO, l Hydrochlori 11:42: Q24H, # 30 Lee de 150 MG 00 tab, 0 Extended Refill(s) Release Tablet 24 HR Yes 150 mg = 1 Memori a Bupropion 4- tab, PO, l Hydrochlori 11:42: Q24H, # 30 Lee de 150 MG 00 tab, 0 Extended Refill(s) Release Tablet 24 HR Yes 150 mg = 1 Memori a Bupropion - tab, PO, l Hydrochlori 11:42: Q24H, # 30 Lee de 150 MG 00 tab, 0 Extended Refill(s) Release Tablet 24 HR Yes 150 mg = 1 Memori a Bupropion -09 tab, PO, l Hydrochlori 11:42: Q24H, # 30 Lee de 150 MG 00 tab, 0 Extended Refill(s) Release Tablet apixaban 0 Yes 5 mg, PO, Me moria MG Oral 4 Q12H, tab, l Tablet 11:41: 0 Lee [Eliquis] 00 Refill(s), For Atrial Fibrilatio n [...] 4- Q12H, tab, l Tablet 11:41: 0 Lee [Eliquis] 00 Refill(s), For Atrial Fibrilatio n apixaban 5 2020-0 Yes 5 mg, PO, Me moria MG Oral 08-29 Q12H, tab, l Tablet 11:41: 0 Marty [Eliquis] 00 Refill(s), For Atrial Fibrilatio n apixaban 5 2020-0 Yes 5 mg, PO, Me moria MG Oral 08-29 Q12H, tab, l Tablet 11:41: 0 Lee [Eliquis] 00 Refill(s), For Atrial Fibrilatio n apixaban 5 2020-0 Yes 5 mg, PO, Me moria MG Oral 08-29 Q12H, tab, l Tablet 11:41: 0 Lee [Eliquis] 00 Refill(s), For Atrial Fibrilatio n AMIODarone Yes 200 mg = 1 M emoria 200 mg oral - tab, PO, l tablet 11:38: Daily, # Lee 00 90 tab, 3 Refill(s) AMIODarone Yes 200 mg = 1 M emoria 200 mg oral -09 tab, PO, l tablet 11:38: Daily, # Lee 00 90 tab, 3 Refill(s) AMIODarone Yes 200 mg = 1 M emoria 200 mg oral -09 tab, PO, l tablet 11:38: Daily, # Marty 00 90 tab, 3 Refill(s) AMIODarone Yes 200 mg = 1 M emoria 200 mg oral -09 tab, PO, l tablet 11:38: Daily, # Lee 00 90 tab, 3 Refill(s) AMIODarone 0 Yes 200 mg = 1 M emoria 200 mg oral 4-09 tab, PO, l tablet 11:38: Daily, # Lee 00 90 tab, 3 Refill(s) AMIODarone Yes 200 mg = 1 M emoria 200 mg oral 4-09 tab, PO, l tablet 11:38: Daily, # Lee 00 90 tab, 3 Refill(s) AMIODarone Yes 200 mg = 1 M emoria 200 mg oral -09 tab, PO, l tablet 11:38: Daily, # Lee 00 90 tab, 3 Refill(s) normal 0 [...] Health 20 MG 00:00: tablet 00 buPROPion 2020- Yes bupropion [place] XL 2-22 HCl XL [...] [facility]0 Yes 400mg Q.5D Take 400 Met [...] [facility] e Immunization Name Name SARS-COV-2 COVID-19 [...] YRS+, Branch BIVALENT 0.3ML, IM, (PFIZER [facility]) Influenza Virus 2022-03-05 Completed [facility] [place] [facility] PFIZER COVID-19 2020-07-23 Completed [facility] VACCINATION 00:00:00 [facility] PFIZER COVID-19 2020-07-23 Completed [facility] VACC[facility] 00:00:00 [facility] PFIZER COVID-19 2020-07-23 Completed [facility] VACC[facility]ATION 00:00:00 [facility] PFIZER COVID-19 2020-07-23 Completed [facility] VACC[facility]ATION 00:00:00 [facility] PFIZER COVID-19 2020-07-23 Completed [facility] VACC[facility]ATION 00:00:00 [facility] PFIZER COVID-19 2020-07-23 Completed [facility] VACC[facility] 00:00:00 [facility] PFIZER COVID-19 2020-07-23 Completed [facility] VACC[facility] 00:00:00 [facility] PFIZER COVID-19 2020-07-23 Completed [facility] VACC[facility] 00:00:00 [facility] PFIZER COVID-19 2020-07-23 Completed [facility] VACC[facility]ATION 00:00:00 [facility] PFIZER COVID-19 2020-07-23 Completed [facility] VACC[facility]ATION 00:00:00 [facility] PFIZER COVID-19 2020-07-23 Completed [facility] VACC[facility] 00:00:00 [facility] PFIZER COVID-19 2020-07-23 Completed [facility] VACC[facility] 00:00:00 [facility] PFIZER COVID-19 2020-07-23 Completed [facility] VACC[facility] 00:00:00 [facility] PFIZER COVID-19 2020-07-23 Completed [facility] VACC[facility]ATION 00:00:00 [facility] PFIZER COVID-19 2020-07-23 Completed [facility] VACC[facility]ATION 00:00:00 [facility] PFIZER COVID-19 2020-07-23 Completed [facility] VACC[facility] 00:00:00 [facility] PFIZER COVID-19 2020-07-23 Completed [facility] VACC[facility] 00:00:00 [facility] COVID-19 2020-07-23 Completed [facility] VACCINATION 00:00:00 [facility] PFIZER COVID-19 2020-07-23 Completed [facility] VACCINATION 00:00:00 [facility] PFIZER COVID-19 2020-07-23 Completed [facility] VACC[facility]ATION 00:00:00 [facility] PEG COVID-19 2020-07-23 Completed [facility] VACCINATION 00:00:00 [facility] PFIZER COVID-19 2020-07-23 Completed [facility] VACC[facility]ATION 00:00:00 [facility] PFIZER COVID-19 2020-07-23 Completed [facility] VACCINATION 00:00:00 [facility] PFIZER COVID-19 2020-07-23 Completed [facility] VACCINATION 00:00:00 [facility] PEG COVID-19 2020-07-23 Completed [facility] VACC[facility]ATION 00:00:00 [facility] PEG COVID-19 2020-07-23 Completed [facility] VACC[facility]ATION 00:00:00 [facility] PEG COVID-19 2020-07-23 Completed [facility] VACC[facility]ATION 00:00:00 [facility] PEG COVID-19 2020-07-23 Completed [facility] VACC[facility]ATION 00:00:00 [facility] PEG COVID-19 2020-07-23 Completed [facility] VACC[facility]ATION 00:00:00 [facility] PEG COVID-19 2020-07-23 Completed [facility] VACC[facility]ATION 00:00:00 [facility] PEG COVID-19 2020-07-23 Completed [facility] VACCINATION 00:00:00 [facility] PEG COVID-19 2020-07-23 Completed [facility] VACCINATION 00:00:00 [facility] PFIZER COVID-19 2020-07-23 Completed [facility] VACCINATION 00:00:00 [facility] PFIZER COVID-19 2020-07-23 Completed [facility] VACC[facility]ATION 00:00:00 [facility] PFIZER COVID-19 2020-07-23 Completed [facility] VACCINATION 00:00:00 [facility] PFIZER COVID-19 2020-07-23 Completed [facility] VACCINATION 00:00:00 [facility] PFIZER COVID-19 2020-07-23 Completed [facility] VACCINATION 00:00:00 [facility] PFIZER COVID-19 2020-07-23 Completed [facility] VACCINATION 00:00:00 [facility] PFIZER COVID-19 2020-07-23 Completed [facility] VACCINATION 00:00:00 [facility] PFIZER COVID-19 2020-07-23 Completed [facility] VACCINATION 00:00:00 [facility] PFIZER COVID-19 2020-07-23 Completed [facility] VACCINATION 00:00:00 [facility] PFIZER COVID-19 2020-07-23 Completed [facility] VACCINATION 00:00:00 [facility] PFIZER COVID-19 2020-07-23 Completed [facility] VACCINATION 00:00:00 [facility] PFIZER COVID-19 2020-07-23 Completed [facility] VACCINATION 00:00:00 [facility] PFIZER COVID-19 2020-07-23 Completed [facility] VACCINATION 00:00:00 [facility] PFIZER COVID-19 2020-07-23 Completed [facility] VACCINATION 00:00:00 [facility] PFIZER COVID-19 2020-07-23 Completed [facility] VACCINATION 00:00:00 [facility] PFIZER COVID-19 2020-07-23 Completed [facility] VACC[facility]ATION 00:00:00 [facility] PFIZER COVID-19 2020-07-23 Completed [facility] VACCINATION 00:00:00 [facility] PFIZER COVID-19 2020-07-23 Completed [facility] VACCINATION 00:00:00 [facility] PFIZER COVID-19 2020-07-23 Completed [facility] VACCINATION 00:00:00 [facility] PFIZER COVID-19 2020-07-23 Completed [facility] VACCINATION 00:00:00 [facility] PFIZER COVID-19 2020-07-23 Completed [facility] VACCINATION 00:00:00 [facility] PFIZER COVID-19 2020-07-23 Completed [facility] VACCINATION 00:00:00 [facility] PFIZER COVID-19 2020-07-23 Completed [facility] VACCINATION 00:00:00 [facility] PFIZER COVID-19 2020-07-23 Completed [facility] VACCINATION 00:00:00 [facility] PFIZER COVID-19 2020-07-23 Completed [facility] VACC[facility]ATION 00:00:00 [facility] PFIZER COVID-19 2020-07-23 Completed [facility] VACC[facility] 00:00:00 [facility] SARS-COV-2 COVID-19 2020-07-23 Completed [facility] PFIZER VACCINE 00:00:00 [facility] SARS-COV-2 COVID-19 2020-07-23 Completed [facility] PFIZER VACCINE 00:00:00 [facility] SARS-COV-2 COVID-19 2020-07-23 Completed [facility] PFIZER VACCINE 00:00:00 [facility] SARS-COV-2 COVID-19 2020-07-23 Completed [facility] of PFIZER VACCINE 00:00:00 [facility] SARS-COV-2 COVID-19 2020-07-23 Completed [facility] of PFIZER VACCINE 00:00:00 [facility] SARS-COV-2 COVID-19 2020-07-23 Completed [facility] PFIZER VACCINE 00:00:00 [facility] SARS-COV-2 COVID-19 2020-07-23 Completed [facility] of PFIZER VACCINE 00:00:00 [facility] SARS-COV-2 COVID-19 2020-07-23 Completed [facility] of PFIZER VACCINE 00:00:00 [facility] SARS-COV-2 COVID-19 2020-07-23 Completed [facility] of PFIZER VACCINE 00:00:00 [facility] SARS-COV-2 COVID-19 2020-07-23 Completed [facility] of PFIZER VACCINE 00:00:00 [facility] SARS-COV-2 COVID-19 2020-07-23 Completed [facility] of PFIZER VACCINE 00:00:00 [facility] SARS-COV-2 COVID-19 2020-07-23 Completed [facility] PFIZER VACCINE 00:00:00 [facility] SARS-COV-2 COVID-19 2020-07-23 Completed [facility] PFIZER VACCINE 00:00:00 [facility] SARS-COV-2 COVID-19 2020-07-23 Completed [facility] of PFIZER VACCINE 00:00:00 [facility] SARS-COV-2 COVID-19 2020-07-23 Completed [facility] of PFIZER VACCINE 00:00:00 [facility] SARS-COV-2 COVID-19 2020-07-23 Completed [facility] PFIZER VACCINE 00:00:00 [facility] SARS-COV-2 COVID-19 2020-07-23 Completed [facility] of PFIZER VACCINE 00:00:00 [facility] SARS-COV-2 COVID-19 2020-07-23 Completed [facility] PFIZER VACCINE 00:00:00 [facility] PFIZER COVID-19 2020-07-23 Completed [facility] VACC[facility] 00:00:00 [facility] COVID-19 2020-07-02 Completed [facility] VACCINATION 00:00:00 [facility] PFIZER COVID-19 2020-07-02 Completed [facility] VACCINATION 00:00:00 [facility] PFIZER COVID-19 2020-07-02 Completed [facility] VACCINATION 00:00:00 [facility] PFIZER COVID-19 2020-07-02 Completed [facility] M[facility] VACCINATION 00:00:00 [facility] PFIZER COVID-19 2020-07-02 Completed [facility] VACCINATION 00:00:00 [facility] PFIZER COVID-19 2020-07-02 Completed [facility] VACCINATION 00:00:00 [facility] PFIZER COVID-19 2020-07-02 Completed [facility] VACCINATION 00:00:00 [facility] PFIZER COVID-19 2020-07-02 Completed [facility] VACCINATION 00:00:00 [facility] PEG COVID-19 2020-07-02 Completed [facility] M[facility] VACCINATION 00:00:00 [facility] PEG COVID-19 2020-07-02 Completed [facility] M[facility] VACCINATION 00:00:00 [facility] PFIZER COVID-19 2020-07-02 Completed [facility] VACCINATION 00:00:00 [facility] PFIZER COVID-19 2020-07-02 Completed [facility] VACCINATION 00:00:00 [facility] PFIZER COVID-19 2020-07-02 Completed [facility] VACCINATION 00:00:00 [facility] PFIZER COVID-19 2020-07-02 Completed [facility] VACCINATION 00:00:00 [facility] PFIZER COVID-19 2020-07-02 Completed [facility] VACCINATION 00:00:00 [facility] PFIZER COVID-19 2020-07-02 Completed [facility] VACCINATION 00:00:00 [facility] PFIZER COVID-19 2020-07-02 Completed [facility] VACCINATION 00:00:00 [facility] PFIZER COVID-19 2020-07-02 Completed [facility] VACCINATION 00:00:00 [facility] PFIZER COVID-19 2020-07-02 Completed [facility] VACCINATION 00:00:00 [facility] PFIZER COVID-19 2020-07-02 Completed [facility] VACCINATION 00:00:00 [facility] PFIZER COVID-19 2020-07-02 Completed [facility] VACCINATION 00:00:00 [facility] PFIZER COVID-19 2020-07-02 Completed [facility] VACCINATION 00:00:00 [facility] PFIZER COVID-19 2020-07-02 Completed [facility] VACCINATION 00:00:00 [facility] PFIZER COVID-19 2020-07-02 Completed [facility] VACCINATION 00:00:00 [facility] PFIZER COVID-19 2020-07-02 Completed [facility] VACCINATION 00:00:00 [facility] PFIZER COVID-19 2020-07-02 Completed [facility] VACCINATION 00:00:00 [facility] PFIZER COVID-19 2020-07-02 Completed [facility] VACCINATION 00:00:00 [facility] PFIZER COVID-19 2020-07-02 Completed [facility] VACCINATION 00:00:00 [facility] PFIZER COVID-19 2020-07-02 Completed [facility] VACCINATION 00:00:00 [facility] PFIZER COVID-19 2020-07-02 Completed [facility] VACCINATION 00:00:00 [facility] PFIZER COVID-19 2020-07-02 Completed [facility] VACCINATION 00:00:00 [facility] PFIZER COVID-19 2020-07-02 Completed [facility] VACCINATION 00:00:00 [facility] PFIZER COVID-19 2020-07-02 Completed [facility] VACCINATION 00:00:00 [facility] PFIZER COVID-19 2020-07-02 Completed [facility] VACCINATION 00:00:00 [facility] PFIZER COVID-19 2020-07-02 Completed [facility] VACCINATION 00:00:00 [facility] PFIZER COVID-19 2020-07-02 Completed [facility] VACCINATION 00:00:00 [facility] PFIZER COVID-19 2020-07-02 Completed [facility] VACCINATION 00:00:00 [facility] PFIZER COVID-19 2020-07-02 Completed [facility] VACCINATION 00:00:00 [facility] PFIZER COVID-19 2020-07-02 Completed [facility] VACCINATION 00:00:00 [facility] PFIZER COVID-19 2020-07-02 Completed [facility] VACCINATION 00:00:00 [facility] PFIZER COVID-19 2020-07-02 Completed [facility] VACCINATION 00:00:00 [facility] PFIZER COVID-19 2020-07-02 Completed [facility] VACCINATION 00:00:00 [facility] PFIZER COVID-19 2020-07-02 Completed [facility] VACC[facility]ATION 00:00:00 [facility] PFIZER COVID-19 2020-07-02 Completed [facility] VACCINATION 00:00:00 [facility] PFIZER COVID-19 2020-07-02 Completed [facility] VACC[facility]ATION 00:00:00 [facility] PFIZER COVID-19 2020-07-02 Completed [facility] VACC[facility]ATION 00:00:00 [facility] PFIZER COVID-19 2020-07-02 Completed [facility]ACC[facility] 00[facility]00:00 [facility] PFIZER COVID-19 2020-07-02 Completed [facility] VACC[facility] 00[facility]00:00 [facility] PFIZER COVID-19 2020-07-02 Completed [facility] VACC[facility] 00[facility]00:00 [facility] PFIZER COVID-19 2020-07-02 Completed [facility]ACC[facility] 00[facility]00:00 [facility] PFIZER COVID-19 2020-07-02 Completed [facility]ACC[facility] 00[facility]00:00 [facility] PFIZER COVID-19 2020-07-02 Completed [facility] VACC[facility] 00[facility]00:00 [facility] PFIZER COVID-19 2020-07-02 Completed [facility] VACC[facility] 00[facility]00:00 [facility] PFIZER COVID-19 2020-07-02 Completed [facility]00 [facility] [facility] COVID-19 2020-07-02 Completed [facility] VACC[facility] 00:00:00 [facility] PFIZER COVID-19 2020-07-02 Completed [facility] 00:00:00 [facility] PFIZER COVID-19 2020-07-02 Completed [facility] VACC[facility] 00:00:00 [facility] PFIZER COVID-19 2020-07-02 Completed [facility] VACC[facility]ATION 00:00:00 [facility] SARS-COV-2 COVID-19 2020-07-02 Completed Unive rsity of PFIZER VACCINE 00:00:00 [facility] SARS-COV-2 COVID-19 2020-07-02 Completed Unive rsity of PFIZER VACCINE 00:00:00 [facility] SARS-COV-2 COVID-19 2020-07-02 Completed Unive rsity of PFIZER VACCINE 00:00:00 [facility] SARS-COV-2 COVID-19 2020-07-02 Completed Unive rsity of PFIZER VACCINE 00:00:00 [facility] SARS-COV-2 COVID-19 2020-07-02 Completed Unive rsity of PFIZER VACCINE 00:00:00 [facility] SARS-COV-2 COVID-19 2020-07-02 Completed Unive rsity of PFIZER VACCINE 00:00:00 [facility] SARS-COV-2 COVID-19 2020-07-02 Completed Unive rsity of PFIZER VACCINE 00:00:00 [facility] SARS-COV-2 COVID-19 2020-07-02 Completed Unive rsity of PFIZER VACCINE 00:00:00 [facility] SARS-COV-2 COVID-19 2020-07-02 Completed Unive rsity of PFIZER VACCINE 00:00:00 [facility] SARS-COV-2 COVID-19 2020-07-02 Completed Unive rsity of PFIZER VACCINE 00:00:00 [facility] SARS-COV-2 COVID-19 2020-07-02 Completed Unive rsity of PFIZER VACCINE 00:00:00 [facility] SARS-COV-2 COVID-19 2020-07-02 Completed Unive rsity of PFIZER VACCINE 00:00:00 [facility] SARS-COV-2 COVID-19 2020-07-02 Completed Unive rsity of PFIZER VACCINE 00:00:00 [facility] SARS-COV-2 COVID-19 2020-07-02 Completed Unive rsity of PFIZER VACCINE 00:00:00 [facility] SARS-COV-2 COVID-19 2020-07-02 Completed Unive rsity of PFIZER VACCINE 00:00:00 [facility] SARS-COV-2 COVID-19 2020-07-02 Completed Unive rsity of PFIZER VACCINE 00:00:00 [facility] SARS-COV-2 COVID-19 2020-07-02 Completed Unive rsity of PFIZER VACCINE 00:00:00 [facility] SARS-COV-2 COVID-19 2020-07-02 Completed Unive rsity of PFIZER VACCINE 00:00:00 [facility] PFIZER COVID-19 2020-07-02 Completed [facility] V[facility] 00:00:00 [facility] [...] [facility] Pneumococcal 13 2014-01-30 Completed Universit y of Conjugate, PCV13 00:00:00 [facility] dical (Prevnar 13) Branch Influenza Virus 2014-01-30 Completed Universit y of Vaccine (3+ yrs) 00:00:00 [facility] Pneumococcal 13 2014-01-30 Completed Universit y of Conjugate, PCV13 00:00:00 [facility] dical (Prevnar 13) Branch Influenza Virus 2014-01-30 Completed Universit y of Vaccine (3+ yrs) 00:00:00 [facility] Pneumococcal 13 2014-01-30 Completed Universit y [...] 2012-02-16 Completed University o f Polysaccharide, 00:00:00 [facility] ical PPSV23 (PNEUMOVAX) Branch Influenza Virus 2012-02-16 Completed Universit y of Vaccine 00:00:00 [facility] PPD (TB) 2012-02-16 Completed University of 00:00:00 [facility] Pneumococcal 2012-02-16 Completed University o f Polysaccharide, 00:00:00 [facility] ical PPSV23 (PNEUMOVAX) Branch Influenza Virus 2012-02-16 Completed Universit y of Vaccine 00:00:00 [facility] PPD (TB) 2012-02-16 Completed University of 00:00:00 [facility] Pneumococcal 2012-02-16 Completed University o f Polysaccharide, 00:00:00 [facility] ical PPSV23 (PNEUMOVAX) Branch Influenza Virus 2012-02-16 Completed Universit y of Vaccine 00:00:00 [facility] PPD (TB) 2012-02-16 Completed University of 00:00:00 [facility] Hep B, Adol or Pedi 2011-09-01 Completed Unive rsity of Dosage 00:00:00 [facility] Hep B, Adol or Pedi 2011-09-01 Completed Unive rsity of Dosage 00:00:00 [facility] Hep B, Adol or Pedi 2011-09-01 Completed Unive rsity of Dosage 00:00:00 [facility] Hep B, Adol or Pedi 2011-09-01 Completed Unive rsity of Dosage 00:00:00 [facility] Hep B, Adol or Pedi 2011-09-01 Completed Unive rsity of Dosage 00:00:00 [facility] Hep B, Adol or Pedi 2011-09-01 Completed Unive rsity of Dosage 00:00:00 [facility] Hep B, Adol or Pedi 2011-09-01 Completed Unive rsity of Dosage 00:00:00 [facility] Hep B, Adol or Pedi 2011-09-01 Completed Unive rsity of Dosage 00:00:00 [facility] Hep B, Adol or Pedi 2011-09-01 Completed Unive rsity of Dosage 00:00:00 [facility] Hep B, Adol or Pedi 2011-09-01 Completed Unive rsity of Dosage 00:00:00 [facility] Hep B, Adol or Pedi 2011-09-01 [...] Completed Universit y of Vaccine 00:00:00 [facility] Hep B, Adol or Pedi 2011-02-10 Completed Unive rsity of Dosage 00:00:00 [facility] Influenza Virus 2011-02-10 Completed Universit y of Vaccine 00:00:00 [facility] Hep B, Adol or Pedi 2011-02-10 Completed Unive rsity of Dosage 00:00:00 [facility] Influenza Virus 2011-02-10 Completed Universit y of Vaccine 00:00:00 [facility] Hep B, Adol or Pedi 2011-02-10 Completed Unive rsity of Dosage 00:00:00 [facility] Influenza Virus 2011-02-10 Completed Universit y of Vaccine 00:00:00 [facility] Hep B, Adol or Pedi [...] Completed Universit y of Vaccine 00:00:00 [facility] Hep B, Adol or Pedi 2011-02-10 Completed Unive rsity of Dosage 00:00:00 [facility] Influenza Virus 2011-02-10 Completed Universit y of Vaccine 00:00:00 [facility] Hep B, Adol or Pedi 2011-02-10 Completed Unive rsity of Dosage 00:00:00 [facility] Influenza Virus 2011-02-10 Completed Universit y of Vaccine 00:00:00 [facility] Hep B, Adol or Pedi 2011-02-10 Completed Unive rsity of Dosage 00:00:00 [facility] Influenza Virus 2011-02-10 Completed Universit y of Vaccine 00:00:00 [facility] Hep B, Adol or Pedi 2011-02-10 Completed Unive rsity of Dosage 00:00:00 [facility] Influenza Virus 2011-02-10 Completed Universit y of Vaccine 00:00:00 [facility] Hep B, Adol or Pedi 2011-02-10 Completed Unive rsity of Dosage 00:00:00 [facility] Influenza Virus 2011-02-10 Completed Universit y of Vaccine 00:00:00 [facility] Hep B, Adol or Pedi 2011-02-10 Completed Unive rsity of Dosage 00:00:00 [facility] Influenza Virus 2011-02-10 Completed Universit y of Vaccine 00:00:00 [facility] Hep B, Adol or Pedi 2011-02-10 Completed Unive rsity of Dosage 00:00:00 [facility] Influenza Virus 2011-02-10 Completed Universit y of Vaccine 00:00:00 [facility] Hep B, Adol or Pedi 2011-02-10 Completed Unive rsity of Dosage 00:00:00 [facility] Influenza Virus 2011-02-10 Completed Universit y of Vaccine 00:00:00 [facility] Hep B, Adol or Pedi 2011-02-10 Completed Unive rsity of Dosage 00:00:00 [facility] Influenza Virus 2011-02-10 Completed Universit y of Vaccine 00:00:00 [facility] Hep B, Adol or Pedi 2011-02-10 Completed Unive rsity of Dosage 00:00:00 [facility] Influenza Virus 2011-02-10 Completed Universit y of Vaccine 00:00:00 [facility] Hep B, Adol or Pedi 2011-02-10 Completed Unive rsity of Dosage 00:00:00 [facility] Influenza Virus 2011-02-10 Completed Universit y of Vaccine 00:00:00 [facility] Hep B, Adol or Pedi 2011-02-10 Completed Unive rsity of Dosage 00:00:00 [facility] Influenza Virus 2011-02-10 Completed Universit y of Vaccine 00:00:00 [facility] Hep B, Adol or Pedi 2011-02-10 Completed Unive rsity of Dosage 00:00:00 [facility] Influenza Virus 2011-02-10 Completed Universit y of Vaccine 00:00:00 [facility] Hep B, Adol or Pedi [...] (TB) 2010-11-18 Completed University of 00:00:00 [facility] TDAP (ADACEL) 2010-11-18 Completed University of VACCINE 00:00:00 [facility] PPD (TB) 2010-11-18 Completed University of 00:00:00 [facility] TDAP (ADACEL) 2010-11-18 Completed University of VACCINE 00:00:00 [facility] PPD (TB) 2010-11-18 Completed University of 00:00:00 [facility] TDAP (ADACEL) 2010-11-18 Completed University [...] (TB) 2010-11-18 Completed University of 00:00:00 [facility] TDAP (ADACEL) 2010-11-18 Completed University of VACCINE 00:00:00 [facility] PPD (TB) 2010-11-18 Completed University of 00:00:00 [facility] TDAP (ADACEL) 2010-11-18 Completed University of VACCINE 00:00:00 [facility] HEPATITIS A 2004-03-02 Completed University of 00:00:00 [facility] HEPATITIS A 2004-03-02 Completed University of 00:00:00 [facility] HEPATITIS A 2004-03-02 Completed University of 00:00:00 [facility] HEPATITIS A 2004-03-02 Completed University of 00:00:00 [facility] HEPATITIS A 2004-03-02 Completed University of 00:00:00 [facility] HEPATITIS A 2004-03-02 Completed University of 00:00:00 [facility] HEPATITIS A 2004-03-02 Completed University of 00:00:00 [facility] HEPATITIS A 2004-03-02 Completed University of 00:00:00 [facility] HEPATITIS A 2004-03-02 Completed University of 00:00:00 [facility] HEPATITIS A 2004-03-02 Completed University of 00:00:00 [facility] HEPATITIS A 2004-03-02 Completed University of 00:00:00 [facility] HEPATITIS A 2004-03-02 Completed University of 00:00:00 [facility] HEPATITIS A 2004-03-02 Completed University of 00:00:00 [facility] HEPATITIS A 2004-03-02 Completed University of 00:00:00 [facility] HEPATITIS A 2004-03-02 Completed University of 00:00:00 [facility] HEPATITIS A 2004-03-02 Completed University of 00:00:00 [facility] HEPATITIS A 2004-03-02 Completed University of 00:00:00 [facility] HEPATITIS A 2004-03-02 Completed University of 00:00:00 [facility] HEPATITIS A 2004-03-02 Completed University of 00:00:00 [facility] HEPATITIS A 2004-03-02 Completed University of 00:00:00 [facility] HEPATITIS A 2004-03-02 Completed University of 00:00:00 [facility] HEPATITIS A 2004-03-02 Completed University of 00:00:00 [facility] HEPATITIS A 2003-08-01 Completed University of 00:00:00 [facility] HEPATITIS A 2003-08-01 Completed University of 00:00:00 [facility] HEPATITIS A 2003-08-01 Completed University of 00:00:00 [facility] HEPATITIS A 2003-08-01 Completed University of 00:00:00 [facility] HEPATITIS A 2003-08-01 Completed University of 00:00:00 [facility] HEPATITIS A 2003-08-01 Completed University of 00:00:00 [facility] HEPATITIS A 2003-08-01 Completed University of 00:00:00 [facility] HEPATITIS A 2003-08-01 Completed University of 00:00:00 [facility] HEPATITIS A 2003-08-01 Completed University of 00:00:00 [facility] HEPATITIS A 2003-08-01 Completed University of 00:00:00 [facility] HEPATITIS A 2003-08-01 Completed University of 00:00:00 [facility] HEPATITIS A 2003-08-01 Completed University of 00:00:00 [facility] HEPATITIS A 2003-08-01 Completed University of 00:00:00 [facility] HEPATITIS A 2003-08-01 Completed University of 00:00:00 [facility] HEPATITIS A 2003-08-01 Completed University of 00:00:00 [facility] HEPATITIS A 2003-08-01 Completed University of 00:00:00 [facility] HEPATITIS A 2003-08-01 Completed University of 00:00:00 [facility] HEPATITIS A 2003-08-01 Completed University of 00:00:00 [facility] HEPATITIS A 2003-08-01 Completed University of 00:00:00 [facility] HEPATITIS A 2003-08-01 Completed University [...] 00:00:00 [facility] Vital Signs Vital Name Observation Time Observation Value Comments Source Systolic blood 2022-05-10 22:00:00 159 mm[Hg] Univer sity of pressure [facility] Diastolic blood 2022-05-10 22:00:00 87 mm[Hg] Unive rsity of pressure [facility] Heart rate 2022-05-10 22:00:00 56 /min [facility] Body temperature 2022-05-10 22:00:00 36.61 [facility] Respiratory rate 2022-05-10 22:00:00 17 /min [facility] Oxygen saturation in 2022-05-10 22:00:00 98 /min University of Arterial blood by [facility] porfirio Pulse oximetry Branch Body weight 2022-05-10 [...] 100 /min University of Arterial blood by [facility] porfirio Pulse oximetry Branch Body temperature 2022-05-08 22:22:00 35.89 Amina Univ ersity of [facility] Respiratory rate 2022-05-08 22:22:00 14 /min Univ ersity of [facility] Body weight 2022-05-08 22:22:00 78.926 kg [facility] BMI 2022-05-08 22:22:00 29.87 kg/m2 [facility] Systolic blood 2022-05-07 00:00:00 149 mm[Hg] Univer sity of pressure [facility] Diastolic blood 2022-05-07 00:00:00 132 mm[Hg] Unive rsity of pressure [facility] Heart rate 2022-05-07 00:00:00 59 /min [facility] Respiratory rate 2022-05-07 00:00:00 14 /min Univ ersity [facility] Oxygen saturation in 2022-05-07 00:00:00 99 /min University of Arterial blood by [facility] porfirio Pulse oximetry Branch Body temperature 2022-05-06 20:12:00 36.5 Amina Univ ersity of [facility] Body height 2022-05-06 20:12:00 162.6 cm [facility] Body weight 2022-05-06 20:12:00 78.926 kg [facility] BMI 2022-05-06 20:12:00 29.87 kg/m2 [facility] Systolic blood 2022-04-22 19:50:00 156 mm[Hg] Univer sity of pressure [facility] Diastolic blood 2022-04-22 19:50:00 89 mm[Hg] Unive rsity of pressure [facility] Heart rate 2022-04-22 19:50:00 69 /min [facility] Body temperature 2022-04-22 19:50:00 36.67 [...] 15:23:00 167 mm[Hg] Univer sity of pressure [facility] Diastolic blood 2022-03-05 15:23:00 105 mm[Hg] Unive rsity of pressure [facility] Heart rate 2022-03-05 15:23:00 49 /min [facility] Body temperature 2022-03-05 15:18:00 36.67 Amina [facility] Respiratory rate 2022-03-05 15:18:00 18 /min Univ ersity of [facility] Body height 2022-03-05 15:18:00 162.6 cm [facility] Body weight 2022-03-05 15:18:00 74.707 kg [facility] BMI 2022-03-05 15:18:00 28.27 kg/m2 [facility] Systolic blood 2022-02-16 21:41:00 169 mm[Hg] Univer sity of pressure [facility] Diastolic blood 2022-02-16 21:41:00 86 mm[Hg] Unive rsity of pressure [facility] Heart rate 2022-02-16 21:41:00 51 /min [facility] Body temperature 2022-02-16 21:41:00 36.56 Amina [facility] Respiratory rate 2022-02-16 21:41:00 17 /min [facility] Oxygen saturation in 2022-02-16 21:41:00 98 /min [facility] Arterial blood by [facility] Pulse oximetry Branch Body height 2022-02-11 16:02:00 162.6 cm Universi ty of [facility] Body weight 2022-02-11 16:02:00 79.379 kg [facility] [place] BMI 2022-02-11 16:02:00 30.04 kg/m2 Universi ty of [facility] Systolic blood 2021-11-20 13:47:00 165 mm[Hg] Univer sity of [facility] Diastolic blood 2021-11-20 13:47:00 83 mm[Hg] Unive [facility] Heart rate 2021-11-20 13:47:00 58 /min Universi ty of [facility] Body temperature 2021-11-20 13:42:00 36.39 Amina [facility] Respiratory rate 2021-11-20 13:42:00 16 /min [facility] Body height 2021-11-20 13:42:00 162.6 cm [facility] [place] Body weight 2021-11-20 13:42:00 84.369 kg [facility] [place] BMI 2021-11-20 13:42:00 31.93 kg/m2 Universi ty of [facility] Systolic blood 2021-07-14 15:18:00 142 mm[Hg] [facility] [...] 2022-05-10 22:00:00 159 mm[Hg] Univer sity of [facility] Diastolic blood 2022-05-10 22:00:00 87 mm[Hg] Unive rsity of pressure [facility] Heart rate 2022-05-10 22:00:00 56 /min [facility] Body temperature 2022-05-10 22:00:00 36.61 Amina [facility] Respiratory rate 2022-05-10 22:00:00 17 /min Univ ers[facility] Oxygen saturation in 2022-05-10 22:00:00 98 /min University of Arterial blood by [facility] Pulse oximetry Branch Body weight 2022-05-10 16:29:00 78.926 kg [facility] BMI 2022-05-10 16:29:00 29.87 kg/m2 [facility] Body height 2022-05-06 20:12:00 162.6 cm [facility] Systolic blood 2022-03-05 15:23:00 167 mm[Hg] Univer sity of pressure [facility] Diastolic blood 2022-03-05 15:23:00 105 mm[Hg] Unive rsity of pressure [facility] Heart rate 2022-03-05 15:23:00 49 /min [facility] Body temperature 2022-03-05 15:18:00 36.67 Amina [facility] Respiratory rate 2022-03-05 15:18:00 18 /min Univ [facility] Body height 2022-03-05 15:18:00 162.6 cm [facility] Body weight 2022-03-05 15:18:00 74.707 kg [facility] BMI 2022-03-05 15:18:00 28.27 kg/m2 [facility] Oxygen saturation in 2022-02-16 21:41:00 98 /min University of Arterial blood by [facility] Pulse oximetry Branch Systolic blood 2020-12-08 15:48:00 125 mm[Hg] Method [facility] pressure Diastolic blood 2020-12-08 15:48:00 76 mm[Hg] [facility] pressure Heart rate 2020-12-08 15:48:00 64 /[facility] 2020-12-08 15:48:00 36.61 Amina [facility] Respiratory rate 2020-12-08 15:48:00 17 /min [facility] Body height 2020-12-08 15:48:00 162.6 cm [facility] Body weight 2020-12-08 15:48:00 98.884 kg [facility] BMI 2020-12-08 15:48:00 37.42 kg/m2 [facility] Oxygen saturation in 2020-12-08 15:48:00 97 /min [facility] Arterial blood by Pulse oximetry Respitory Rate 2020-08-30 13:00:00 [facility] Systolic (mm Hg) 2020-08-30 13:00:00 [facility] rial Marty Diastolic (mm Hg) 2020-08-30 13:00:00 Mem orial Lee Systolic (mm Hg) 2020-08-30 11:00:00 [facility] Diastolic (mm Hg) 2020-08-30 11:00:00 Mem orial [facility] Temperature Oral (F) 2020-08-30 11:00:00 98.4 F [facility] Respitory Rate 2020-08-30 11:00:00 [facility] Respitory Rate 2020-08-30 10:00:00 [facility] Systolic (mm Hg) 2020-08-30 10:00:00 [facility] Diastolic (mm Hg) 2020-08-30 10:00:00 Mem [facility] Temperature Oral (F) 2020-08-30 00:00:00 96.9 F [facility] Temperature Oral (F) 2020-08-29 11:26:00 97.6 F [facility] Height 2020-08-29 10:30:00 162[facility] 2020-08-29 10:30:00 [facility] BMI Calculated 2020-08-29 10:30:00 [facility] Procedures Procedure Date / Time Performing Clinician Source Performed URINALYSIS 2022-05-10 19:36:00 [facility] TROPONIN I 2022-05-10 18:34:00 Home Matthews [facility] COMP. METABOLIC PANEL 2022-05-10 18:34:00 Home Matthews [facility] ([id number]) Medical Branch CBC WITH DIFF 2022-05-10 18:34:00 Home Matthews [facility] XR CHEST 2 VW 2022-05-10 17:24:58 Home [facility] CONSENT/REFUSAL FOR 2022-05-10 16:26:23 Doctor [facility] DIAGNOSIS AND TREATMENT [place] [place] CONSENT/REFUSAL FOR 2022-05-10 16:26:09 Doctor [facility] DIAGNOSIS AND TREATMENT [place] [facility] URINALYSIS 2022-05-08 22:43:00 Theresa Hickman [facility] XR CHEST 2 VW 2022-05-06 22:56:53 Anette Olea [facility] COMP. METABOLIC PANEL 2022-05-06 22:14:00 Anette Olea [facility] ([id number]) Medical Branch CBC WITH DIFF 2022-05-06 22:14:00 Anette Olea [facility] COVID-19 (ID NOW RAPID 2022-05-06 22:14:00 Anette Olea [facility] TESTING) Medical Branch BASIC METABOLIC PANEL (NA, 2022-04-22 21:23:00 Paulette Gray [facility] K, CL, CO2, GLUCOSE, BUN, Medica l [place] CREATININE, CA) CBC WITH DIFF 2022-04-22 21:23:00 Paulette Gray [facility] CONSENT/REFUSAL FOR 2022-04-22 19:45:46 Doctor [facility] DIAGNOSIS AND TREATMENT [place] [facility] SARS-COV-2 COVID-19 2022-03-05 16:09:27 [facility] DIMITRIS-SUCROSE VACCINE [address] [place] [address] Branch YRS+, BIVALENT 0.3ML, IM, (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) FLU 2022-03-05 16:09:27 [facility] VACC(),65+YR,0.5 Medica l Branch ML,IM,ADJUVANTED,QUAD(FLUA D) FLU 2022-03-05 16:09:27 [facility] VACC(),65+YR,0.5 Medica l Branch ML,IM,ADJUVANTED,QUAD(FLUA D) SARS-COV-2 COVID-19 2022-03-05 16:09:27 [facility] DIMITRIS-SUCROSE VACCINE 12 Medical Branch YRS+, BIVALENT 0.3ML, IM, (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) MAGNESIUM 2022-02-15 09:41:00 [facility] BASIC METABOLIC PANEL (NA, 2022-02-15 09:41:00 Radha [facility] K, CL, CO2, GLUCOSE, BUN, Medica l Branch CREATININE, CA) CBC WITH DIFF 2022-02-15 09:41:00 [facility] N-TERMINAL PRO-BNP 2022-02-15 09:41:00 Sofia Garcia [facility] CBC WITH DIFF 2022-02-15 09:41:00 [facility] BASIC METABOLIC PANEL (NA, 2022-02-15 09:41:00 Sofia Garcia [facility] K, CL, CO2, GLUCOSE, BUN, Medica l Branch CREATININE, CA) MAGNESIUM 2022-02-15 09:41:00 [facility] N-TERMINAL PRO-BNP 2022-02-15 09:41:00 Sofia Garcia [facility] BASIC METABOLIC PANEL (NA, 2022-02-13 09:40:00 Sofia Garcia [facility] K, CL, CO2, GLUCOSE, BUN, Medica l Branch CREATININE, CA) CBC WITH DIFF 2022-02-13 09:40:00 [facility] BASIC METABOLIC PANEL (NA, 2022-02-13 09:40:00 Radha Sofia [facility] K, CL, CO2, GLUCOSE, BUN, Medica l Branch CREATININE, CA) CBC WITH DIFF 2022-02-13 09:40:00 Radha Sofia [facility] TROPONIN I 2022-02-11 23:41:00 [facility] N-TERMINAL PRO-BNP 2022-02-11 23:41:00 Sofia Garcia [facility] TROPONIN I 2022-02-11 23:41:00 Sofia Garcia [facility] N-TERMINAL PRO-BNP 2022-02-11 23:41:00 Sofia Garcia [facility] HB ECG ROUTINE & RHYTHM 2022-02-11 22:15:36 [facility] 2022-02-11 21:26:50 [facility] 2022-02-11 21:26:50 [facility]ELVIS W 2022-02-11 07:45:43 Miguelangel [facility] CONTRAST [facility] CT ABDOMEN PELVIS W 2022-02-11 07:45:43 Reilly Means [facility] CONTRAST [facility] RAPID INFLUENZA A/B 2022-02-11 06:54:00 Reilly Means [facility] RAPID INFLUENZA A/B 2022-02-11 06:54:00 Reilly Means [facility] URINALYSIS 2022-02-11 06:45:00 Reilly Means [facility] URINE CULTURE 2022-02-11 06:45:00 Miguelangel [facility] URINALYSIS 2022-02-11 06:45:00 Reilly Means [facility] URINE CULTURE 2022-02-11 06:45:00 Reilly Means [facility] HB ECG ROUTINE & RHYTHM 2022-02-11 05:22:08 Reilly Means [facility] HB ECG ROUTINE & RHYTHM 2022-02-11 05:22:08 Reilly Means [facility] BLOOD CULTURE SCREEN 2022-02-11 04:58:00 Reilly Means [facility] TROPONIN I 2022-02-11 04:58:00 Reilly Means [facility] COMP. METABOLIC PANEL 2022-02-11 04:58:00 Reilly Means [facility] ([id number]) Medical Branch CBC WITH DIFF 2022-02-11 04:58:00 Reilly Means [facility] PROTHROMBIN TIME / INR 2022-02-11 04:58:[address] [facility] ACTIVATED PARTIAL THRMPLAS 2022-02-11 04:58:00 Reilly Means [facility] N-TERMINAL PRO-BNP 2022-02-11 04:58:00 Reilly Means [facility] LACTIC ACID WHOLE BLOOD 2022-02-11 04:58:00 Reilly Means [facility] COVID-19 (ID NOW RAPID 2022-02-11 04:58:00 Reilly Means [facility] TESTING) Medical Branch LAB ONLY COVID 2022-02-11 04:58:00 Reilly Means [facility] CBC WITH DIFF 2022-02-11 04:58:00 Reilly Means [facility] ACTIVATED PARTIAL THRMPLAS 2022-02-11 04:58:00 Reilly Means [facility] PROTHROMBIN TIME / INR 2022-02-11 04:58:[address] [facility] COVID-19 (ID NOW RAPID 2022-02-11 04:58:00 Reilly eMans [facility] TESTING) Medical Branch COMP. METABOLIC PANEL 2022-02-11 04:58:00 Reilly Means [facility] ([id number]) Medical Branch TROPONIN I 2022-02-11 04:58:00 Reilly Means [facility] N-TERMINAL PRO-BNP 2022-02-11 04:58:00 Reilly Means [facility] BLOOD CULTURE SCREEN 2022-02-11 04:58:00 Reilly Means [facility] LACTIC ACID WHOLE BLOOD 2022-02-11 04:58:00 Reilly Means [facility] LAB ONLY COVID 2022-02-11 04:58:00 Reilly Means [facility] XR CHEST 1 VW 2022-02-11 04:27:42 Reilly Means [facility] XR CHEST 1 VW 2022-02-11 04:27:42 Reilly Means [facility] HOSPITAL ADMISSION 2022-02-10 05:01:00 Doctor Unassigned, [facility] HOSPITAL ADMISSION 2022-02-10 05:01:00 Doctor Unassigned, [facility] ECG 12-LEAD 2021-07-14 15:14:00 Elan Lira [facility] [id number] 2021-06-17 00:00:00 GRACEA EDUARDO Clear [facility] GASTROINTESTINAL PANEL 2020-12-08 22:21[facility] X[facility] ABDOMEN 1 VW 2020-12-08 18:06:32 Eliseo Arce spital OR [place] < 1 HOUR 2020-09-05 22:39:00 Eliseo Arce spital SURGICAL PATHOLOGY REQUEST 2020-09-05 21:54:00 [facility] XR CHEST 1 VW PORTABLE 2020-09-05 19:55:00 Jailyn [facility] DISCHARGE PATIENT 2020-09-05 17:27:55 Lucas Harris [facility] MD AN ELECTIVE 2020-09-05 16:47:23 Kirit Flood [facility] ENDOTRACHEAL AIRWAY EGD, INTRAOPERATIVE 2020-09-05 16:27:00 [facility] 2020-09-05 15:04:00 Sarai Maharaj [facility] TIME (PTT) M. PROTHROMBIN TIME WITH INR 2020-09-05 15:04:00 Mindy Maharaj [facility] M. Plan of Care Planned Activity Planned Date Details Comments Source Future Scheduled 2022-12-23 Screening for [facility] Test 06:27:39 malignant neoplasm of colon (procedure) [code = 110721134] Future Scheduled 2022-12-23 Screening for [facility] Test 06:27:39 malignant neoplasm of colon (procedure) [code = 885007802] Future Scheduled 2022-12-23 Screening for [facility] Test 06:27:39 malignant neoplasm of colon (procedure) [code = 831680541] Future Scheduled 2022-12-23 SHINGLES VACCINES (1 Met [facility] Test 06:27:39 of 2) [code = SHINGLES VACCINES (1 of 2)] Future Scheduled 2022-12-23 BREAST CANCER [facility] Test 06:27:39 SCREENING [code = BREAST CANCER SCREENING] Future Scheduled 2022-12-23 Screening for [facility] Test 06:27:39 malignant neoplasm of colon (procedure) [code = 181752787] Future Scheduled 2022-12-23 Screening for [facility] Test 06:27:39 malignant neoplasm of colon (procedure) [code = 047895167] Future Scheduled 2022-12-23 HEPATITIS B VACCINES Met [facility] Test 06:27:39 (1 of 3 - Risk 3-dose series) [code = HEPATITIS B VACCINES (1 of 3 - Risk 3-dose series)] Future Scheduled 2022-12-23 COVID-19 VACCINE (3 - Me [facility] Test 06:27:39 Pfizer series) [code = COVID-19 VACCINE (3 - Pfizer series)] Future Scheduled 2022-12-23 65+ PNEUMOCOCCAL [facility] Test 06:27:39 VACCINE (4 - PPSV23 if available, else PCV20) [code = 65+ PNEUMOCOCCAL VACCINE (4 - PPSV23 if available, else PCV20)] Future Scheduled 2022-12-23 INFLUENZA VACCINE Method [facility] Test 06:27:39 [code = INFLUENZA VACCINE] Future Scheduled 2022-12-13 Screening for [facility] Test 16:46:16 malignant neoplasm of colon (procedure) [code = 858388775] Future Scheduled 2022-12-13 Screening for [facility] Test 16:46:16 malignant neoplasm of colon (procedure) [code = 983163909] Future Scheduled 2022-12-13 Screening for [facility] Test 16:46:16 malignant neoplasm of colon (procedure) [code = 926663212] Future Scheduled 2022-12-13 SHINGLES VACCINES (1 Met [facility] Test 16:46:16 of 2) [code = SHINGLES VACCINES (1 of 2)] Future Scheduled 2022-12-13 BREAST CANCER [facility] Test 16:46:16 SCREENING [code = BREAST CANCER SCREENING] Future Scheduled 2022-12-13 Screening for [facility] Test 16:46:16 malignant neoplasm of colon (procedure) [code = 559774388] Future Scheduled 2022-12-13 [facility] 16:46:16 malignant neoplasm of colon (procedure) [code = 306673742] Future Scheduled 2022-12-13 HEPATITIS B VACCINES Met [facility] Test 16:46:16 (1 of 3 - Risk 3-dose series) [code = HEPATITIS B VACCINES (1 of 3 - Risk 3-dose series)] Future Scheduled 2022-12-13 COVID-19 VACCINE (3 - Me [facility] Test 16:46:16 Pfizer series) [code = COVID-19 VACCINE (3 - Pfizer series)] Future Scheduled 2022-12-13 65+ [facility]16 VACCINE (4 - PPSV23 if available, else PCV20) [code = 65+ PNEUMOCOCCAL VACCINE (4 - PPSV23 if available, else PCV20)] Future Scheduled 2022-12-13 INFLUENZA VACCINE Method [facility] Test 16:46:16 [code = INFLUENZA VACCINE] Future Scheduled 2022-12-13 [facility] Test 16:46:16 malignant neoplasm of colon (procedure) [code = 437717934] Future Scheduled 2022-12-13 Screening for [facility] Test 16:46:16 malignant neoplasm of colon (procedure) [code = 711365013] Future Scheduled 2022-12-13 Screening for [facility] Test 16:46:16 malignant neoplasm of colon (procedure) [code = 486621725] Future Scheduled 2022-12-13 SHINGLES VACCINES (1 Met [facility] Test 16:46:16 of 2) [code = SHINGLES VACCINES (1 of 2)] Future Scheduled 2022-12-13 BREAST CANCER [facility] Test 16:46:16 SCREENING [code = BREAST CANCER SCREENING] Future Scheduled 2022-12-13 Screening for [facility] Test 16:46:16 malignant neoplasm of colon (procedure) [code = 802355480] Future Scheduled 2022-12-13 Screening for [facility] Test 16:46:16 malignant neoplasm of colon (procedure) [code = 291254645] Future Scheduled 2022-12-13 HEPATITIS B VACCINES Met [facility] Test 16:46:16 (1 of 3 - Risk 3-dose series) [code = HEPATITIS B VACCINES (1 of 3 - Risk 3-dose series)] Future Scheduled 2022-12-13 COVID-19 VACCINE (3 - Me [facility] Test 16:46:16 Pfizer series) [code = COVID-19 VACCINE (3 - Pfizer series)] Future Scheduled 2022-12-13 65+ PNEUMOCOCCAL [facility] Test 16:46:16 VACCINE (4 - PPSV23 if available, else PCV20) [code = 65+ PNEUMOCOCCAL VACCINE (4 - PPSV23 if available, else PCV20)] Future Scheduled 2022-12-13 INFLUENZA VACCINE Method [facility] Test 16:46:16 [code = INFLUENZA VACCINE] Future Scheduled 2022-12-13 Screening for [facility] Test 16:46:16 malignant neoplasm of colon (procedure) [code = 578951506] Future Scheduled 2022-12-13 Screening for [facility] Test 16:46:16 malignant neoplasm of colon (procedure) [code = 155922781] Future Scheduled 2022-12-13 Screening for [facility] Test 16:46:16 malignant neoplasm of colon (procedure) [code = 668683907] Future Scheduled 2022-12-13 SHINGLES VACCINES (1 Met [facility] Test 16:46:16 of 2) [code = SHINGLES VACCINES (1 of 2)] Future Scheduled 2022-12-13 BREAST CANCER [facility] Test 16:46:16 SCREENING [code = BREAST CANCER SCREENING] Future Scheduled 2022-12-13 Screening for [facility] Test 16:46:16 malignant neoplasm of colon (procedure) [code = 461849096] Future Scheduled 2022-12-13 Screening for [facility] Test 16:46:16 malignant neoplasm of colon (procedure) [code = 658816692] Future Scheduled 2022-12-13 HEPATITIS B VACCINES Met [facility] Test 16:46:16 (1 of 3 - Risk 3-dose series) [code = HEPATITIS B VACCINES (1 of 3 - Risk 3-dose series)] Future Scheduled 2022-12-13 COVID-19 VACCINE (3 - [facility] Test 16:46:16 Pfizer series) [code = COVID-19 VACCINE (3 - Pfizer series)] Future Scheduled 2022-12-13 65+ PNEUMOCOCCAL [facility] Test 16:46:16 VACCINE (4 - PPSV23 if available, else PCV20) [code = 65+ PNEUMOCOCCAL VACCINE (4 - PPSV23 if available, else PCV20)] Future Scheduled 2022-12-13 INFLUENZA VACCINE [facility] Test 16:46:16 [code = INFLUENZA VACCINE] Future Scheduled 2022-11-11 [facility] Test 09:27:47 malignant neoplasm of colon (procedure) [code = 481909693] Future Scheduled 2022-11-11 [facility] Test 09:27:47 malignant neoplasm of colon (procedure) [code = 071454134] Future Scheduled 2022-11-11 [facility] Test 09:27:47 malignant neoplasm of colon (procedure) [code = 537405101] Future Scheduled 2022-11-11 SHINGLES VACCINES (1 Met [facility] Test 09:27:47 of 2) [code = SHINGLES VACCINES (1 of 2)] Future Scheduled 2022-11-11 BREAST CANCER [facility] Test 09:27:47 SCREENING [code = BREAST CANCER SCREENING] Future Scheduled 2022-11-11 [facility] Test 09:27:47 malignant neoplasm of colon (procedure) [code = 305474592] Future Scheduled 2022-11-11 [facility] Test 09:27:47 malignant neoplasm of colon (procedure) [code = 217193243] Future Scheduled 2022-11-11 HEPATITIS B VACCINES Met [facility] Test 09:27:47 (1 of 3 - Risk 3-dose series) [code = HEPATITIS B VACCINES (1 of 3 - Risk 3-dose series)] Future Scheduled 2022-11-11 COVID-19 VACCINE (3 - Me [facility] Test 09:27:47 Pfizer series) [code = COVID-19 VACCINE (3 - Pfizer series)] Future Scheduled 2022-11-11 65+ [facility] 09:27:47 VACCINE (4 - PPSV23 if available, else PCV20) [code = 65+ PNEUMOCOCCAL VACCINE (4 - PPSV23 if available, else PCV20)] Future Scheduled 2022-11-11 INFLUENZA VACCINE Method [facility] Test 09:27:47 [code = INFLUENZA VACCINE] Future Scheduled 2022-11-11 [facility] Test 09:27:47 malignant neoplasm of colon (procedure) [code = 716970336] Future Scheduled 2022-11-11 [facility] Test 09:27:47 malignant neoplasm of colon (procedure) [code = 889582338] Future Scheduled 2022-11-11 Screening for [facility] Test 09:27:47 malignant neoplasm of colon (procedure) [code = 694141065] Future Scheduled 2022-11-11 SHINGLES VACCINES (1 Met [facility] Test 09:27:47 of 2) [code = SHINGLES VACCINES (1 of 2)] Future Scheduled 2022-11-11 BREAST CANCER [facility] Test 09:27:47 SCREENING [code = BREAST CANCER SCREENING] Future Scheduled 2022-11-11 Screening for [facility] Test 09:27:47 malignant neoplasm of colon (procedure) [code = 489720584] Future Scheduled 2022-11-11 Screening for [facility] Test 09:27:47 malignant neoplasm of colon (procedure) [code = 583892286] Future Scheduled 2022-11-11 HEPATITIS B VACCINES Met [facility] Test 09:27:47 (1 of 3 - Risk 3-dose series) [code = HEPATITIS B VACCINES (1 of 3 - Risk 3-dose series)] Future Scheduled 2022-11-11 COVID-19 VACCINE (3 - [facility] Test 09:27:47 Pfizer series) [code = COVID-19 VACCINE (3 - Pfizer series)] Future Scheduled 2022-11-11 65+ PNEUMOCOCCAL [facility] Test 09:27:47 VACCINE (4 - PPSV23 if available, else PCV20) [code = 65+ PNEUMOCOCCAL VACCINE (4 - PPSV23 if available, else PCV20)] Future Scheduled 2022-11-11 INFLUENZA VACCINE Method [facility] Test 09:27:47 [code = INFLUENZA VACCINE] Future Scheduled 2022-11-11 Screening for [facility] Test 09:27:47 malignant neoplasm of colon (procedure) [code = 901448873] Future Scheduled 2022-11-11 Screening for [facility] Test 09:27:47 malignant neoplasm of colon (procedure) [code = 505556562] Future Scheduled 2022-11-11 Screening for [facility] Test 09:27:47 malignant neoplasm of colon (procedure) [code = 742989312] Future Scheduled 2022-11-11 SHINGLES VACCINES (1 Met [facility] Test 09:27:47 of 2) [code = SHINGLES VACCINES (1 of 2)] Future Scheduled 2022-11-11 BREAST CANCER [facility] Test 09:27:47 SCREENING [code = BREAST CANCER SCREENING] Future Scheduled 2022-11-11 Screening for [facility] Test 09:27:47 malignant neoplasm of colon (procedure) [code = 231819371] Future Scheduled 2022-11-11 Screening for [facility] Test 09:27:47 malignant neoplasm of colon (procedure) [code = 427857808] Future Scheduled 2022-11-11 HEPATITIS B VACCINES Met [facility] Test 09:27:47 (1 of 3 - Risk 3-dose series) [code = HEPATITIS B VACCINES (1 of 3 - Risk 3-dose series)] Future Scheduled 2022-11-11 COVID-19 VACCINE (3 - Me [facility] Test 09:27:47 Pfizer series) [code = COVID-19 VACCINE (3 - Pfizer series)] Future Scheduled 2022-11-11 65+ PNEUMOCOCCAL [facility] Test 09:27:47 VACCINE (4 - PPSV23 if available, else PCV20) [code = 65+ PNEUMOCOCCAL VACCINE (4 - PPSV23 if available, else PCV20)] Future Scheduled 2022-11-11 INFLUENZA VACCINE Method [facility] Test 09:27:47 [code = INFLUENZA VACCINE] Future Scheduled 2022-10-27 Screening for [facility] Test 22:40:19 malignant neoplasm of colon (procedure) [code = 329108590] Future Scheduled 2022-10-27 Screening for [facility] Test 22:40:19 malignant neoplasm of colon (procedure) [code = 170933968] Future Scheduled 2022-10-27 Screening for [facility] Test 22:40:19 malignant neoplasm of colon (procedure) [code = 265396273] Future Scheduled 2022-10-27 SHINGLES VACCINES (1 Met [facility] Test 22:40:19 of 2) [code = SHINGLES VACCINES (1 of 2)] Future Scheduled 2022-10-27 BREAST CANCER [facility] Test 22:40:19 SCREENING [code = BREAST CANCER SCREENING] Future Scheduled 2022-10-27 Screening for [facility] Test 22:40:19 malignant neoplasm of colon (procedure) [code = 140422586] Future Scheduled 2022-10-27 Screening for [facility] Test 22:40:19 malignant neoplasm of colon (procedure) [code = 229058646] Future Scheduled 2022-10-27 HEPATITIS B VACCINES Met [facility] Test 22:40:19 (1 of 3 - Risk 3-dose series) [code = HEPATITIS B VACCINES (1 of 3 - Risk 3-dose series)] Future Scheduled 2022-10-27 COVID-19 VACCINE (3 - [facility] Test 22:40:19 Pfizer series) [code = COVID-19 VACCINE (3 - Pfizer series)] Future Scheduled 2022-10-27 65+ PNEUMOCOCCAL [facility] Test 22:40:19 VACCINE (4 - PPSV23 if available, else PCV20) [code = 65+ PNEUMOCOCCAL VACCINE (4 - PPSV23 if available, else PCV20)] Future Scheduled 2022-10-27 INFLUENZA VACCINE Method [facility] Test 22:40:19 [code = INFLUENZA VACCINE] Future Scheduled 2022-10-27 Screening for [facility] Test 22:40:19 malignant neoplasm of colon (procedure) [code = 008756053] Future Scheduled 2022-10-27 Screening for [facility] Test 22:40:19 malignant neoplasm of colon (procedure) [code = 642519542] Future Scheduled 2022-10-27 Screening for [facility] Test 22:40:19 malignant neoplasm of colon (procedure) [code = 092300321] Future Scheduled 2022-10-27 SHINGLES VACCINES (1 Met [facility] Test 22:40:19 of 2) [code = SHINGLES VACCINES (1 of 2)] Future Scheduled 2022-10-27 BREAST CANCER [facility] Test 22:40:19 SCREENING [code = BREAST CANCER SCREENING] Future Scheduled 2022-10-27 Screening for [facility] Test 22:40:19 malignant neoplasm of colon (procedure) [code = 699827028] Future Scheduled 2022-10-27 Screening for [facility] Test 22:40:19 malignant neoplasm of colon (procedure) [code = 815775509] Future Scheduled 2022-10-27 HEPATITIS B VACCINES Met [facility] Test 22:40:19 (1 of 3 - Risk 3-dose series) [code = HEPATITIS B VACCINES (1 of 3 - Risk 3-dose series)] Future Scheduled 2022-10-27 COVID-19 VACCINE (3 - Me [facility] Test 22:40:19 Pfizer series) [code = COVID-19 VACCINE (3 - Pfizer series)] Future Scheduled 2022-10-27 65+ [facility]CCAL [facility]:19 VACCINE (4 - PPSV23 if available, else PCV20) [code = 65+ PNEUMOCOCCAL VACCINE (4 - PPSV23 if available, else PCV20)] Future Scheduled 2022-10-27 INFLUENZA VACCINE Method [facility] Test 22:40:19 [code = INFLUENZA VACCINE] Future Scheduled 2022-09-10 SHINGLES VACCINES (1 Met [facility] Test 15:06:53 of 2) [code = SHINGLES VACCINES (1 of 2)] Future Scheduled 2022-09-10 BREAST CANCER [facility] Test 15:06:53 SCREENING [code = BREAST CANCER SCREENING] Future Scheduled 2022-09-10 COLONOSCOPY SCREENING [facility] Test 15:06:53 [code = COLONOSCOPY SCREENING] Future Scheduled 2022-09-10 HEPATITIS B VACCINES Met [facility] Test 15:06:53 (1 of 3 - Risk 3-dose series) [code = HEPATITIS B VACCINES (1 of 3 - Risk 3-dose series)] Future Scheduled 2022-09-10 COVID-19 VACCINE (3 - Me [facility] Test 15:06:53 Booster for Pfizer series) [code = COVID-19 VACCINE (3 - Booster for Pfizer series)] Future Scheduled 2022-09-10 65+ PNEUMOCOCCAL [facility] Test 15:06:53 VACCINE (4 - PPSV23 if available, else PCV20) [code = 65+ PNEUMOCOCCAL VACCINE (4 - PPSV23 if available, else PCV20)] Future Scheduled 2022-09-10 INFLUENZA VACCINE Method [facility] Test 15:06:53 [code = INFLUENZA VACCINE] Future Scheduled 2022-09-10 SHINGLES VACCINES (1 Met [facility] Test 15:06:53 of 2) [code = SHINGLES VACCINES (1 of 2)] Future Scheduled 2022-09-10 BREAST CANCER [facility] Test 15:06:53 SCREENING [code = BREAST CANCER SCREENING] Future Scheduled 2022-09-10 COLONOSCOPY SCREENING [facility] Test 15:06:53 [code = COLONOSCOPY SCREENING] Future Scheduled 2022-09-10 HEPATITIS B VACCINES Met [facility] Test 15:06:53 (1 of 3 - Risk 3-dose series) [code = HEPATITIS B VACCINES (1 of 3 - Risk 3-dose series)] Future Scheduled 2022-09-10 COVID-19 VACCINE (3 - [facility] Test 15:06:53 Booster for Pfizer series) [code = COVID-19 VACCINE (3 - Booster for Pfizer series)] Future Scheduled 2022-09-10 65+ PNEUMOCOCCAL [facility] Test 15:06:53 VACCINE (4 - PPSV23 if available, else PCV20) [code = 65+ PNEUMOCOCCAL VACCINE (4 - PPSV23 if available, else PCV20)] Future Scheduled 2022-09-10 INFLUENZA VACCINE Method [facility] Test 15:06:53 [code = INFLUENZA VACCINE] Future Scheduled 2022-09-10 SHINGLES VACCINES (1 Met [facility] Test 15:06:53 of 2) [code = SHINGLES VACCINES (1 of 2)] Future Scheduled 2022-09-10 BREAST CANCER [facility] Test 15:06:53 SCREENING [code = BREAST CANCER SCREENING] Future Scheduled 2022-09-10 COLONOSCOPY SCREENING [facility] Test 15:06:53 [code = COLONOSCOPY SCREENING] Future Scheduled 2022-09-10 HEPATITIS B VACCINES Met [facility] Test 15:06:53 (1 of 3 - Risk 3-dose series) [code = HEPATITIS B VACCINES (1 of 3 - Risk 3-dose series)] Future Scheduled 2022-09-10 COVID-19 VACCINE (3 - [facility] Test 15:06:53 Booster for Pfizer series) [code = COVID-19 VACCINE (3 - Booster for Pfizer series)] Future Scheduled 2022-09-10 65+ [facility]:06:[facility] VACCINE (4 - PPSV23 if available, else PCV20) [code = 65+ PNEUMOCOCCAL VACCINE (4 - PPSV23 if available, else PCV20)] Future Scheduled 2022-09-10 INFLUENZA VACCINE Method [facility] Test 15:06:53 [code = INFLUENZA VACCINE] Future Scheduled 2022-09-10 SHINGLES VACCINES (1 Met [facility] Test 15:06:53 of 2) [code = SHINGLES VACCINES (1 of 2)] Future Scheduled 2022-09-10 BREAST CANCER [facility] Test 15:06:53 SCREENING [code = BREAST CANCER SCREENING] Future Scheduled 2022-09-10 COLONOSCOPY SCREENING [facility] Test 15:06:53 [code = COLONOSCOPY SCREENING] Future Scheduled 2022-09-10 HEPATITIS B VACCINES Met [facility] Test 15:06:53 (1 of 3 - Risk 3-dose series) [code = HEPATITIS B VACCINES (1 of 3 - Risk 3-dose series)] Future Scheduled 2022-09-10 COVID-19 VACCINE (3 - Me [facility] Test 15:06:53 Booster for Pfizer series) [code = COVID-19 VACCINE (3 - Booster for Pfizer series)] Future Scheduled 2022-09-10 65+ [facility] Test 15:06:53 VACCINE (4 - PPSV23 if available, else PCV20) [code = 65+ PNEUMOCOCCAL VACCINE (4 - PPSV23 if available, else PCV20)] Future Scheduled 2022-09-10 INFLUENZA VACCINE Method [facility] Test 15:06:53 [code = INFLUENZA VACCINE] Future Scheduled 2022-09-10 SHINGLES VACCINES (1 Met [facility] Test 15:06:53 of 2) [code = SHINGLES VACCINES (1 of 2)] Future Scheduled 2022-09-10 BREAST CANCER [facility] Test 15:06:53 SCREENING [code = BREAST CANCER SCREENING] Future Scheduled 2022-09-10 COLONOSCOPY SCREENING [facility] Test 15:06:53 [code = COLONOSCOPY SCREENING] Future Scheduled 2022-09-10 HEPATITIS B VACCINES Met [facility] Test 15:06:53 (1 of 3 - Risk 3-dose series) [code = HEPATITIS B VACCINES (1 of 3 - Risk 3-dose series)] Future Scheduled 2022-09-10 COVID-19 VACCINE (3 - Me [facility] Test 15:06:53 Booster for Pfizer series) [code = COVID-19 VACCINE (3 - Booster for Pfizer series)] Future Scheduled 2022-09-10 65+ [facility] Test 15:06:53 VACCINE (4 - PPSV23 if available, else PCV20) [code = 65+ PNEUMOCOCCAL VACCINE (4 - PPSV23 if available, else PCV20)] Future Scheduled 2022-09-10 INFLUENZA VACCINE Method [facility] Test 15:06:53 [code = INFLUENZA VACCINE] Future Scheduled 2022-09-10 SHINGLES VACCINES (1 Met [facility] Test 15:06:53 of 2) [code = SHINGLES VACCINES (1 of 2)] Future Scheduled 2022-09-10 BREAST CANCER [facility] Test 15:06:53 SCREENING [code = BREAST CANCER SCREENING] Future Scheduled 2022-09-10 COLONOSCOPY SCREENING [facility] Test 15:06:53 [code = COLONOSCOPY SCREENING] Future Scheduled 2022-09-10 HEPATITIS B VACCINES Met [facility] Test 15:06:53 (1 of 3 - Risk 3-dose series) [code = HEPATITIS B VACCINES (1 of 3 - Risk 3-dose series)] Future Scheduled 2022-09-10 COVID-19 VACCINE (3 - [facility] Test 15:06:53 Booster for Pfizer series) [code = COVID-19 VACCINE (3 - Booster for Pfizer series)] Future Scheduled 2022-09-10 65+ PNEUMOCOCCAL [facility] Test 15:06:53 VACCINE (4 - PPSV23 if available, else PCV20) [code = 65+ PNEUMOCOCCAL VACCINE (4 - PPSV23 if available, else PCV20)] Future Scheduled 2022-09-10 INFLUENZA VACCINE Method [facility] Test 15:06:53 [code = INFLUENZA VACCINE] Future Scheduled 2022-09-10 SHINGLES VACCINES (1 Met [facility] Test 15:06:53 of 2) [code = SHINGLES VACCINES (1 of 2)] Future Scheduled 2022-09-10 BREAST CANCER [facility] Test 15:06:53 SCREENING [code = BREAST CANCER SCREENING] Future Scheduled 2022-09-10 COLONOSCOPY SCREENING [facility] Test 15:06:53 [code = COLONOSCOPY SCREENING] Future Scheduled 2022-09-10 HEPATITIS B VACCINES Met [facility] Test 15:06:53 (1 of 3 - Risk 3-dose series) [code = HEPATITIS B VACCINES (1 of 3 - Risk 3-dose series)] Future Scheduled 2022-09-10 COVID-19 VACCINE (3 - [facility] Test 15:06:53 Booster for Pfizer series) [code [...] Future Scheduled 2022-09-10 SHINGLES VACCINES (1 Met [facility] Test 15:06:53 of 2) [code = SHINGLES VACCINES (1 of 2)] Future Scheduled 2022-09-10 BREAST CANCER [facility] Test 15:06:53 SCREENING [code = BREAST CANCER SCREENING] Future Scheduled 2022-09-10 COLONOSCOPY SCREENING [facility] Test 15:06:53 [code = COLONOSCOPY SCREENING] Future Scheduled 2022-09-10 HEPATITIS B VACCINES Met [facility] Test 15:06:53 (1 of 3 - Risk 3-dose series) [code = HEPATITIS B VACCINES (1 of 3 - Risk 3-dose series)] Future Scheduled 2022-09-10 COVID-19 VACCINE (3 - Me [facility] Test 15:06:53 Booster for Pfizer series) [...] Future Scheduled 2022-08-26 SHINGLES VACCINES (1 Met [facility] Test 14:43:48 of 2) [code = SHINGLES VACCINES (1 of 2)] Future Scheduled 2022-08-26 BREAST CANCER [facility] Test 14:43:48 SCREENING [code = BREAST CANCER SCREENING] Future Scheduled 2022-08-26 COLONOSCOPY SCREENING [facility] Test 14:43:48 [code = COLONOSCOPY SCREENING] Future Scheduled 2022-08-26 HEPATITIS B VACCINES Met [facility] Test 14:43:48 (1 of 3 - Risk 3-dose series) [code = HEPATITIS B VACCINES (1 of 3 - Risk 3-dose series)] Future Scheduled 2022-08-26 COVID-19 VACCINE (3 - Me [facility] Test 14:43:48 Booster for Pfizer series) [code = COVID-19 VACCINE (3 - Booster for Pfizer series)] Future Scheduled 2022-08-26 65+ [facility] Test 14:43:48 VACCINE (4 - PPSV23 if available, else PCV20) [code = 65+ PNEUMOCOCCAL VACCINE (4 - PPSV23 if available, else PCV20)] Future Scheduled 2022-08-26 INFLUENZA VACCINE Method [facility] Test 14:43:48 [code = INFLUENZA VACCINE] Future Scheduled 2022-08-07 SHINGLES VACCINES (1 Met [facility] Test 23:30:11 of 2) [code = SHINGLES VACCINES (1 of 2)] Future Scheduled 2022-08-07 BREAST CANCER [facility] Test 23:30:11 SCREENING [code = BREAST CANCER SCREENING] Future Scheduled 2022-08-07 COLONOSCOPY SCREENING [facility] Test 23:30:11 [code = COLONOSCOPY SCREENING] Future Scheduled 2022-08-07 HEPATITIS B VACCINES Met [facility] Test 23:30:11 (1 of 3 - Risk 3-dose series) [code = HEPATITIS B VACCINES (1 of 3 - Risk 3-dose series)] Future Scheduled 2022-08-07 COVID-19 VACCINE (3 - [facility] Test 23:30:11 Booster for Pfizer series) [code = COVID-19 VACCINE (3 - Booster for Pfizer series)] Future Scheduled 2022-08-07 65+ PNEUMOCOCCAL [facility] Test 23:30:11 VACCINE (4 - PPSV23 if available, else PCV20) [code = 65+ PNEUMOCOCCAL VACCINE (4 - PPSV23 if available, else PCV20)] Future Scheduled 2022-08-07 INFLUENZA VACCINE Method [facility] Test 23:30:11 [code = INFLUENZA VACCINE] Future Scheduled 2022-08-07 SHINGLES VACCINES (1 Met [facility] Test 23:30:11 of 2) [code = SHINGLES VACCINES (1 of 2)] Future Scheduled 2022-08-07 BREAST CANCER [facility] Test 23:30:11 SCREENING [code = BREAST CANCER SCREENING] Future Scheduled 2022-08-07 COLONOSCOPY SCREENING [facility] Test 23:30:11 [code = COLONOSCOPY SCREENING] Future Scheduled 2022-08-07 HEPATITIS B VACCINES Met [facility] Test 23:30:11 (1 of 3 [...] PCV20)] Future Scheduled 2022-08-07 INFLUENZA VACCINE Method [facility] Test 23:30:11 [code = INFLUENZA VACCINE] Future Scheduled 2022-08-06 SHINGLES VACCINES (1 Met [facility] Test 15:48:02 of 2) [code = SHINGLES VACCINES (1 of 2)] Future Scheduled 2022-08-06 BREAST CANCER [facility] Test 15:48:02 SCREENING [code = BREAST CANCER SCREENING] Future Scheduled 2022-08-06 COLONOSCOPY SCREENING [facility] Test 15:48:02 [code = COLONOSCOPY SCREENING] Future Scheduled 2022-08-06 HEPATITIS B VACCINES Met [facility] Test 15:48:02 (1 of 3 - Risk 3-dose series) [code = HEPATITIS B VACCINES (1 of 3 - Risk 3-dose series)] Future Scheduled 2022-08-06 COVID-19 VACCINE (3 - [facility] Test 15:48:02 Booster for Pfizer series) [code = COVID-19 VACCINE (3 - Booster for Pfizer series)] Future Scheduled 2022-08-06 65+ [facility]CCAL [facility] Test 15:48:02 VACCINE (4 - PPSV23 if available, else PCV20) [code = 65+ PNEUMOCOCCAL VACCINE (4 - PPSV23 if available, else PCV20)] Future Scheduled 2022-08-06 INFLUENZA VACCINE Method [facility] Test 15:48:02 [code = INFLUENZA VACCINE] Future Scheduled 2022-06-11 SHINGLES VACCINES (1 Met [facility] Test 16:10:12 of 2) [code = SHINGLES VACCINES (1 of 2)] Future Scheduled 2022-06-11 BREAST CANCER [facility] Test 16:10:12 SCREENING [code = BREAST CANCER SCREENING] Future Scheduled 2022-06-11 COLONOSCOPY SCREENING [facility] Test 16:10:12 [code = COLONOSCOPY SCREENING] Future Scheduled 2022-06-11 HEPATITIS B VACCINES Met [facility] Test 16:10:12 (1 of 3 - Risk 3-dose series) [code = HEPATITIS B VACCINES (1 of 3 - Risk 3-dose series)] Future Scheduled 2022-06-11 COVID-19 VACCINE (3 - [facility] Test 16:10:12 Booster for Pfizer series) [code = COVID-19 VACCINE (3 - Booster for Pfizer series)] Future Scheduled 2022-06-11 65+ [facility]AL [facility] Test 16:10:12 VACCINE (4 - PPSV23 if available, else PCV20) [code = 65+ PNEUMOCOCCAL VACCINE (4 - PPSV23 if available, else PCV20)] Future Scheduled 2022-06-11 INFLUENZA VACCINE Method [facility] Test 16:10:12 [code = INFLUENZA VACCINE] Future Scheduled 2022-06-11 SHINGLES VACCINES (1 Met [facility] Test 16:10:12 of 2) [code = SHINGLES VACCINES (1 of 2)] Future Scheduled 2022-06-11 BREAST CANCER [facility] Test 16:10:12 SCREENING [code = BREAST CANCER SCREENING] Future Scheduled 2022-06-11 COLONOSCOPY SCREENING [facility] Test 16:10:12 [code = COLONOSCOPY SCREENING] Future Scheduled 2022-06-11 HEPATITIS B VACCINES Met [facility] Test 16:10:12 (1 of 3 - Risk 3-dose series) [code = HEPATITIS B VACCINES (1 of 3 - Risk 3-dose series)] Future Scheduled 2022-06-11 COVID-19 VACCINE (3 - [facility] Test 16:10:12 Booster for Pfizer series) [code = COVID-19 VACCINE (3 - Booster for Pfizer series)] Future Scheduled 2022-06-11 65+ [facility]:10[facility]12 VACCINE (4 - PPSV23 if available, else PCV20) [code = 65+ PNEUMOCOCCAL VACCINE (4 - PPSV23 if available, else PCV20)] Future Scheduled 2022-06-11 INFLUENZA VACCINE Method [facility] Test 16:10:12 [code = INFLUENZA VACCINE] Future Scheduled 2022-06-11 SHINGLES VACCINES (1 Met [facility] Test 16:10:12 of 2) [code = SHINGLES VACCINES (1 of 2)] Future Scheduled 2022-06-11 BREAST CANCER [facility] Test 16:10:12 SCREENING [code = BREAST CANCER SCREENING] Future Scheduled 2022-06-11 COLONOSCOPY SCREENING [facility] Test 16:10:12 [code = COLONOSCOPY SCREENING] Future Scheduled 2022-06-11 HEPATITIS B VACCINES Met [facility] Test 16:10:12 (1 of 3 [...] 2022-06-11 INFLUENZA VACCINE Method [facility] Test 16:10:12 [code = INFLUENZA VACCINE] Future Scheduled 2022-06-11 SHINGLES VACCINES (1 Met [facility] Test 16:10:12 of 2) [code = SHINGLES VACCINES (1 of 2)] Future Scheduled 2022-06-11 BREAST CANCER [facility] Test 16:10:12 SCREENING [code = BREAST CANCER SCREENING] Future Scheduled 2022-06-11 COLONOSCOPY SCREENING [facility] Test 16:10:12 [code = COLONOSCOPY SCREENING] Future Scheduled 2022-06-11 HEPATITIS B VACCINES Met [facility] Test 16:10:12 (1 of 3 - Risk 3-dose series) [code = HEPATITIS B VACCINES (1 of 3 - Risk 3-dose series)] Future Scheduled 2022-06-11 COVID-19 VACCINE (3 - Me [facility] Test 16:10:12 Booster for Pfizer series) [code = COVID-19 VACCINE (3 - Booster for Pfizer series)] Future Scheduled 2022-06-11 65+ [facility] 16:10:12 VACCINE (4 - PPSV23 if available, else PCV20) [code = 65+ PNEUMOCOCCAL VACCINE (4 - PPSV23 if available, else PCV20)] Future Scheduled 2022-06-11 [facility] 16:10:12 [code = INFLUENZA VACCINE] Future Scheduled 2022-06-11 SHINGLES VACCINES (1 Met [facility] Test 16:10:12 of 2) [code = SHINGLES VACCINES (1 of 2)] Future Scheduled 2022-06-11 BREAST CANCER [facility] Test 16:10:12 SCREENING [code = BREAST CANCER SCREENING] Future Scheduled 2022-06-11 COLONOSCOPY SCREENING [facility] Test 16:10:12 [code = COLONOSCOPY SCREENING] Future Scheduled 2022-06-11 HEPATITIS B VACCINES Met [facility] Test 16:10:12 (1 of 3 - Risk 3-dose series) [code = HEPATITIS B VACCINES (1 of 3 - Risk 3-dose series)] Future Scheduled 2022-06-11 COVID-19 VACCINE (3 - [facility] Test 16:10:12 Booster for Pfizer series) [code = COVID-19 VACCINE (3 - Booster for Pfizer series)] Future Scheduled 2022-06-11 65+ PNEUMOCOCCAL [facility] Test 16:10:12 VACCINE (4 - PPSV23 if available, else PCV20) [code = 65+ PNEUMOCOCCAL VACCINE (4 - PPSV23 if available, else PCV20)] Future Scheduled 2022-06-11 INFLUENZA VACCINE Method [facility] Test 16:10:12 [code = INFLUENZA VACCINE] Future Scheduled 2022-06-11 SHINGLES VACCINES (1 Met [facility] Test 16:10:12 of 2) [code = SHINGLES VACCINES (1 of 2)] Future Scheduled 2022-06-11 BREAST CANCER [facility] Test 16:10:12 SCREENING [code = BREAST CANCER SCREENING] Future Scheduled 2022-06-11 COLONOSCOPY SCREENING [facility] Test 16:10:12 [code = COLONOSCOPY SCREENING] Future Scheduled 2022-06-11 HEPATITIS B VACCINES Met [facility] Test 16:10:12 (1 of 3 - Risk 3-dose series) [code = HEPATITIS B VACCINES (1 of 3 - Risk 3-dose series)] Future Scheduled 2022-06-11 COVID-19 VACCINE (3 - [facility] Test 16:10:12 Booster for Pfizer series) [code = COVID-19 VACCINE (3 - Booster for Pfizer series)] Future Scheduled 2022-06-11 65+ [facility] 16:10:12 VACCINE (4 - PPSV23 if available, else PCV20) [code = 65+ PNEUMOCOCCAL VACCINE (4 - PPSV23 if available, else PCV20)] Future Scheduled 2022-06-11 INFLUENZA VACCINE Method [facility] Test 16:10:12 [code = INFLUENZA VACCINE] Future Scheduled 2022-06-11 SHINGLES VACCINES (1 Met [facility] Test 16:10:12 of 2) [code = SHINGLES VACCINES (1 of 2)] Future Scheduled 2022-06-11 BREAST CANCER [facility] Test 16:10:12 SCREENING [code = BREAST CANCER SCREENING] Future Scheduled 2022-06-11 COLONOSCOPY SCREENING [facility] Test 16:10:12 [code = COLONOSCOPY SCREENING] Future Scheduled 2022-06-11 HEPATITIS B VACCINES Met [facility] Test 16:10:12 (1 of 3 - Risk 3-dose series) [code = HEPATITIS B VACCINES (1 of 3 - Risk 3-dose series)] Future Scheduled 2022-06-11 COVID-19 VACCINE (3 - [facility] Test 16:10:12 Booster for Pfizer series) [code = COVID-19 VACCINE (3 - Booster for Pfizer series)] Future Scheduled 2022-06-11 65[facility]:10:12 VACCINE (4 - PPSV23 if available, else PCV20) [code = 65+ PNEUMOCOCCAL VACCINE (4 - PPSV23 if available, else PCV20)] Future Scheduled 2022-06-11 INFLUENZA VACCINE Method [facility] Test 16:10:12 [code = INFLUENZA VACCINE] Future Scheduled 2022-06-11 SHINGLES VACCINES (1 Met [facility] Test 16:10:12 of 2) [code = SHINGLES VACCINES (1 of 2)] Future Scheduled 2022-06-11 BREAST CANCER [facility] Test 16:10:12 SCREENING [code = BREAST CANCER SCREENING] Future Scheduled 2022-06-11 COLONOSCOPY SCREENING [facility] Test 16:10:12 [code = COLONOSCOPY SCREENING] Future Scheduled 2022-06-11 HEPATITIS B VACCINES Met [facility] Test 16:10:12 (1 of 3 - Risk 3-dose series) [code = HEPATITIS B VACCINES (1 of 3 - Risk 3-dose series)] Future Scheduled 2022-06-11 COVID-19 VACCINE (3 - [facility] Test 16:10:12 Booster for Pfizer series) [code = COVID-19 VACCINE (3 - Booster for Pfizer series)] Future Scheduled 2022-06-11 65+ [facility] 16:10:12 VACCINE (4 - PPSV23 if available, else PCV20) [code = 65+ PNEUMOCOCCAL VACCINE (4 - PPSV23 if available, else PCV20)] Future Scheduled 2022-06-11 INFLUENZA VACCINE Method [facility] Test 16:10:12 [code = INFLUENZA VACCINE] Future Scheduled 2022-06-11 SHINGLES VACCINES (1 Met [facility] Test 16:10:12 of 2) [code = SHINGLES VACCINES (1 of 2)] Future Scheduled 2022-06-11 BREAST CANCER [facility] Test 16:10:12 SCREENING [code = BREAST CANCER SCREENING] Future Scheduled 2022-06-11 COLONOSCOPY SCREENING [facility] Test 16:10:12 [code = COLONOSCOPY SCREENING] Future Scheduled 2022-06-11 HEPATITIS B VACCINES Met [facility] Test 16:10:12 (1 of 3 [...] 2022-06-11 INFLUENZA VACCINE Method [facility] Test 16:10:12 [code = INFLUENZA VACCINE] Future Scheduled 2022-05-10 SHINGLES VACCINES (1 Met [facility] Test 10:21:35 of 2) [code = SHINGLES VACCINES (1 of 2)] Future Scheduled 2022-05-10 BREAST CANCER [facility] Test 10:21:35 SCREENING [code = BREAST CANCER SCREENING] Future Scheduled 2022-05-10 COLONOSCOPY SCREENING [facility] Test 10:21:35 [code = COLONOSCOPY SCREENING] Future Scheduled 2022-05-10 HEPATITIS B VACCINES Met [facility] Test 10:21:35 (1 of 3 - Risk 3-dose series) [code = HEPATITIS B VACCINES (1 of 3 - Risk 3-dose series)] Future Scheduled 2022-05-10 COVID-19 VACCINE (3 - Me [facility] Test 10:21:35 Booster for Pfizer series) [code = COVID-19 VACCINE (3 - Booster for Pfizer series)] Future Scheduled 2022-05-10 65+ PNEUMOCOCCAL [facility] Test 10:21:35 VACCINE (4 - PPSV23 if available, else PCV20) [code = 65+ PNEUMOCOCCAL VACCINE (4 - PPSV23 if available, else PCV20)] Future Scheduled 2022-05-10 INFLUENZA VACCINE Method [facility] Test 10:21:35 [code = INFLUENZA VACCINE] Future Scheduled 2022-05-10 SHINGLES VACCINES (1 Met [facility] Test 10:21:35 of 2) [code = SHINGLES VACCINES (1 of 2)] Future Scheduled 2022-05-10 BREAST CANCER [facility] Test 10:21:35 SCREENING [code = BREAST CANCER SCREENING] Future Scheduled 2022-05-10 COLONOSCOPY SCREENING [facility] Test 10:21:35 [code = COLONOSCOPY SCREENING] Future Scheduled 2022-05-10 HEPATITIS B VACCINES Met [facility] Test 10:21:35 (1 of 3 - Risk 3-dose series) [code = HEPATITIS B VACCINES (1 of 3 - Risk 3-dose series)] Future Scheduled 2022-05-10 COVID-19 VACCINE (3 - Me [facility] Test 10:21:35 Booster for Pfizer series) [code = COVID-19 VACCINE (3 - Booster for Pfizer series)] Future Scheduled 2022-05-10 65+ [facility]:21:35 VACCINE (4 - PPSV23 if available, else PCV20) [code = 65+ PNEUMOCOCCAL VACCINE (4 - PPSV23 if available, else PCV20)] Future Scheduled 2022-05-10 INFLUENZA VACCINE Method [facility] Test 10:21:35 [code = INFLUENZA VACCINE] Future Scheduled 2022-05-06 SHINGLES VACCINES (1 Met [facility] Test 14:03:13 of 2) [code = SHINGLES VACCINES (1 of 2)] Future Scheduled 2022-05-06 BREAST CANCER [facility] Test 14:03:13 SCREENING [code = BREAST CANCER SCREENING] Future Scheduled 2022-05-06 COLONOSCOPY SCREENING [facility] Test 14:03:13 [code = COLONOSCOPY SCREENING] Future Scheduled 2022-05-06 HEPATITIS B VACCINES Met [facility] Test 14:03:13 (1 of 3 - Risk 3-dose series) [code = HEPATITIS B VACCINES (1 of 3 - Risk 3-dose series)] Future Scheduled 2022-05-06 COVID-19 VACCINE (3 - Me [facility] Test 14:03:13 Booster for Pfizer series) [code = COVID-19 VACCINE (3 - Booster for Pfizer series)] Future Scheduled 2022-05-06 65+ [facility]AL [facility] Test 14:03:13 VACCINE (4 - PPSV23 if available, else PCV20) [code = 65+ PNEUMOCOCCAL VACCINE (4 - PPSV23 if available, else PCV20)] Future Scheduled 2022-05-06 INFLUENZA VACCINE Method [facility] Test 14:03:13 [code = INFLUENZA VACCINE] Future Scheduled 2022-04-30 SHINGLES VACCINES (1 Met [facility] Test 01:07:32 of 2) [code = SHINGLES VACCINES (1 of 2)] Future Scheduled 2022-04-30 BREAST CANCER [facility] Test 01:07:32 SCREENING [code = BREAST CANCER SCREENING] Future Scheduled 2022-04-30 COLONOSCOPY SCREENING [facility] Test 01:07:32 [code = COLONOSCOPY SCREENING] Future Scheduled 2022-04-30 HEPATITIS B VACCINES Met [facility] Test 01:07:32 (1 of 3 - Risk 3-dose series) [code = HEPATITIS B VACCINES (1 of 3 - Risk 3-dose series)] Future Scheduled 2022-04-30 COVID-19 VACCINE (3 - [facility] Test 01:07:32 Booster for Pfizer series) [code = COVID-19 VACCINE (3 - Booster for Pfizer series)] Future Scheduled 2022-04-30 65+ [facility] Test 01:07:32 VACCINE (4 - PPSV23 if available, else PCV20) [code = 65+ PNEUMOCOCCAL VACCINE (4 - PPSV23 if available, else PCV20)] Future Scheduled 2022-04-30 INFLUENZA VACCINE Method [facility] Test 01:07:32 [code = INFLUENZA VACCINE] Future Scheduled 2022-04-30 SHINGLES VACCINES (1 Met [facility] Test 01:07:32 of 2) [code = SHINGLES VACCINES (1 of 2)] Future Scheduled 2022-04-30 BREAST CANCER [facility] Test 01:07:32 SCREENING [code = BREAST CANCER SCREENING] Future Scheduled 2022-04-30 COLONOSCOPY SCREENING [facility] Test 01:07:32 [code = COLONOSCOPY SCREENING] Future Scheduled 2022-04-30 HEPATITIS B VACCINES Met [facility] Test 01:07:32 (1 of 3 - Risk 3-dose series) [code = HEPATITIS B VACCINES (1 of 3 - Risk 3-dose series)] Future Scheduled 2022-04-30 COVID-19 VACCINE (3 - [facility] Test 01:07:32 Booster for Pfizer series) [code = COVID-19 VACCINE (3 - Booster for Pfizer series)] Future Scheduled 2022-04-30 65+ PNEUMOCOCCAL [facility] Test 01:07:32 VACCINE (4 - PPSV23 if available, else PCV20) [code = 65+ PNEUMOCOCCAL VACCINE (4 - PPSV23 if available, else PCV20)] Future Scheduled 2022-04-30 INFLUENZA VACCINE Method [facility] Test 01:07:32 [code = INFLUENZA VACCINE] Future Scheduled 2022-04-30 SHINGLES VACCINES (1 Met [facility] Test 01:07:32 of 2) [code = SHINGLES VACCINES (1 of 2)] Future Scheduled 2022-04-30 BREAST CANCER [facility] Test 01:07:32 SCREENING [code = BREAST CANCER SCREENING] Future Scheduled 2022-04-30 COLONOSCOPY SCREENING [facility] Test 01:07:32 [code = COLONOSCOPY SCREENING] Future Scheduled 2022-04-30 HEPATITIS B VACCINES Met [facility] Test 01:07:32 (1 of 3 - Risk 3-dose series) [code = HEPATITIS B VACCINES (1 of 3 - Risk 3-dose series)] Future Scheduled 2022-04-30 COVID-19 VACCINE (3 - [facility] Test 01:07:32 Booster for Pfizer series) [code = COVID-19 VACCINE (3 - Booster for Pfizer series)] Future Scheduled 2022-04-30 65+ PNEUMOCOCCAL [facility] Test 01:07:32 VACCINE (4 - PPSV23 if available, else PCV20) [code = 65+ PNEUMOCOCCAL VACCINE (4 - PPSV23 if available, else PCV20)] Future Scheduled 2022-04-30 INFLUENZA VACCINE Method [facility] Test 01:07:32 [code = INFLUENZA VACCINE] Future Scheduled 2022-04-25 SHINGLES VACCINES (1 Met [facility] Test 01:45:02 of 2) [code = SHINGLES VACCINES (1 of 2)] Future Scheduled 2022-04-25 BREAST CANCER [facility] Test 01:45:02 SCREENING [code = BREAST CANCER SCREENING] Future Scheduled 2022-04-25 COLONOSCOPY SCREENING [facility] Test 01:45:02 [code = COLONOSCOPY SCREENING] Future Scheduled 2022-04-25 HEPATITIS B VACCINES Met [facility] Test 01:45:02 (1 of 3 - Risk 3-dose series) [code = HEPATITIS B VACCINES (1 of 3 - Risk 3-dose series)] Future Scheduled 2022-04-25 COVID-19 VACCINE (3 - [facility] Test 01:45:02 Booster for Pfizer series) [code = COVID-19 VACCINE (3 - Booster for Pfizer series)] Future Scheduled 2022-04-25 65+ [facility] 01:[facility]:02 VACCINE (4 - PPSV23 if available, else PCV20) [code = 65+ PNEUMOCOCCAL VACCINE (4 - PPSV23 if available, else PCV20)] Future Scheduled 2022-04-25 INFLUENZA VACCINE Method [facility] Test 01:45:02 [code = INFLUENZA VACCINE] Future Scheduled 2022-03-25 SHINGLES VACCINES (1 Met [facility] Test 14:48:42 of 2) [code = SHINGLES VACCINES (1 of 2)] Future Scheduled 2022-03-25 BREAST CANCER [facility] Test 14:48:42 SCREENING [code = BREAST CANCER SCREENING] Future Scheduled 2022-03-25 COLONOSCOPY SCREENING [facility] Test 14:48:42 [code = COLONOSCOPY SCREENING] Future Scheduled 2022-03-25 HEPATITIS B VACCINES Met [facility] Test 14:48:42 (1 of 3 - Risk 3-dose series) [code = HEPATITIS B VACCINES (1 of 3 - Risk 3-dose series)] Future Scheduled 2022-03-25 COVID-19 VACCINE (3 - Me [facility] Test 14:48:42 Booster for Pfizer series) [code = COVID-19 VACCINE (3 - Booster for Pfizer series)] Future Scheduled 2022-03-25 65+ PNEUMOCOCCAL [facility] Test 14:48:42 VACCINE (4 - PPSV23 if available, else PCV20) [code = 65+ PNEUMOCOCCAL VACCINE (4 - PPSV23 if available, else PCV20)] Future Scheduled 2022-03-25 INFLUENZA VACCINE Method [facility] Test 14:48:42 [code = INFLUENZA VACCINE] Future Scheduled 2022-03-25 SHINGLES VACCINES (1 Met [facility] Test 14:48:42 of 2) [code = SHINGLES VACCINES (1 of 2)] Future Scheduled 2022-03-25 BREAST CANCER [facility] Test 14:48:42 SCREENING [code = BREAST CANCER SCREENING] Future Scheduled 2022-03-25 COLONOSCOPY SCREENING [facility] Test 14:48:42 [code = COLONOSCOPY SCREENING] Future Scheduled 2022-03-25 HEPATITIS B VACCINES Met [facility] Test 14:48:42 (1 of 3 - Risk 3-dose series) [code = HEPATITIS B VACCINES (1 of 3 - Risk 3-dose series)] Future Scheduled 2022-03-25 COVID-19 VACCINE (3 - [facility] Test 14:48:42 Booster for Pfizer series) [code = COVID-19 VACCINE (3 - Booster for Pfizer series)] Future Scheduled 2022-03-25 65+ PNEUMOCOCCAL [facility] Test 14:48:42 VACCINE (4 - PPSV23 if available, else PCV20) [code = 65+ PNEUMOCOCCAL VACCINE (4 - PPSV23 if available, else PCV20)] Future Scheduled 2022-03-25 INFLUENZA VACCINE Method [facility] Test 14:48:42 [code = INFLUENZA VACCINE] Future Scheduled 2022-03-25 SHINGLES VACCINES (1 Met [facility] Test 14:48:42 of 2) [code = SHINGLES VACCINES (1 of 2)] Future Scheduled 2022-03-25 BREAST CANCER [facility] Test 14:48:42 SCREENING [code = BREAST CANCER SCREENING] Future Scheduled 2022-03-25 COLONOSCOPY SCREENING [facility] Test 14:48:42 [code = COLONOSCOPY SCREENING] Future Scheduled 2022-03-25 HEPATITIS B VACCINES Met [facility] Test 14:48:42 (1 of 3 - Risk 3-dose series) [code = HEPATITIS B VACCINES (1 of 3 - Risk 3-dose series)] Future Scheduled 2022-03-25 COVID-19 VACCINE (3 - Me [facility] Test 14:48:42 Booster for Pfizer series) [code = COVID-19 VACCINE (3 - Booster for Pfizer series)] Future Scheduled 2022-03-25 65+ [facility]AL [facility] Test 14:48:42 VACCINE (4 - PPSV23 if available, else PCV20) [code = 65+ PNEUMOCOCCAL VACCINE (4 - PPSV23 if available, else PCV20)] Future Scheduled 2022-03-25 INFLUENZA VACCINE Method [facility] Test 14:48:42 [code = INFLUENZA VACCINE] Future Scheduled 2022-03-25 SHINGLES VACCINES (1 Met [facility] Test 14:48:42 of 2) [code = SHINGLES VACCINES (1 of 2)] Future Scheduled 2022-03-25 BREAST CANCER [facility] Test 14:48:42 SCREENING [code = BREAST CANCER SCREENING] Future Scheduled 2022-03-25 COLONOSCOPY SCREENING [facility] Test 14:48:42 [code = COLONOSCOPY SCREENING] Future Scheduled 2022-03-25 HEPATITIS B VACCINES Met [facility] Test 14:48:42 (1 of 3 - Risk 3-dose series) [code = HEPATITIS B VACCINES (1 of 3 - Risk 3-dose series)] Future Scheduled 2022-03-25 COVID-19 VACCINE (3 - [facility] Test 14:48:42 Booster for Pfizer series) [code = COVID-19 VACCINE (3 - Booster for Pfizer series)] Future Scheduled 2022-03-25 65+ [facility]CCAL [facility] Test 14:48:42 VACCINE (4 - PPSV23 if available, else PCV20) [code = 65+ PNEUMOCOCCAL VACCINE (4 - PPSV23 if available, else PCV20)] Future Scheduled 2022-03-25 INFLUENZA VACCINE Method [facility] Test 14:48:42 [code = INFLUENZA VACCINE] Future Scheduled 2022-03-25 SHINGLES VACCINES (1 Met [facility] Test 14:48:42 of 2) [code = SHINGLES VACCINES (1 of 2)] Future Scheduled 2022-03-25 BREAST CANCER [facility] Test 14:48:42 SCREENING [code = BREAST CANCER SCREENING] Future Scheduled 2022-03-25 COLONOSCOPY SCREENING [facility] Test 14:48:42 [code = COLONOSCOPY SCREENING] Future Scheduled 2022-03-25 HEPATITIS B VACCINES Met [facility] Test 14:48:42 (1 of 3 - Risk 3-dose series) [code = HEPATITIS B VACCINES (1 of 3 - Risk 3-dose series)] Future Scheduled 2022-03-25 COVID-19 VACCINE (3 - [facility] Test 14:48:42 Booster for Pfizer series) [code = COVID-19 VACCINE (3 - Booster for Pfizer series)] Future Scheduled 2022-03-25 65+ [facility]CCAL [facility] Test 14:48:42 VACCINE (4 - PPSV23 if available, else PCV20) [code = 65+ PNEUMOCOCCAL VACCINE (4 - PPSV23 if available, else PCV20)] Future Scheduled 2022-03-25 INFLUENZA VACCINE Method [facility] Test 14:48:42 [code = INFLUENZA VACCINE] Future Scheduled 2022-03-25 SHINGLES VACCINES (1 Met [facility] Test 14:48:42 of 2) [code = SHINGLES VACCINES (1 of 2)] Future Scheduled 2022-03-25 BREAST CANCER [facility] Test 14:48:42 SCREENING [code = BREAST CANCER SCREENING] Future Scheduled 2022-03-25 COLONOSCOPY SCREENING [facility] Test 14:48:42 [code = COLONOSCOPY SCREENING] Future Scheduled 2022-03-25 HEPATITIS B VACCINES Met [facility] Test 14:48:42 (1 of 3 - Risk 3-dose series) [code = HEPATITIS B VACCINES (1 of 3 - Risk 3-dose series)] Future Scheduled 2022-03-25 COVID-19 VACCINE (3 - [facility] Test 14:48:42 Booster for Pfizer series) [code = COVID-19 VACCINE (3 - Booster for Pfizer series)] Future Scheduled 2022-03-25 65+ [facility] 14:48:42 VACCINE (4 - PPSV23 if available, else PCV20) [code = 65+ PNEUMOCOCCAL VACCINE (4 - PPSV23 if available, else PCV20)] Future Scheduled 2022-03-25 INFLUENZA VACCINE Method [facility] Test 14:48:42 [code = INFLUENZA VACCINE] Future Scheduled 2022-03-25 SHINGLES VACCINES (1 Met [facility] Test 14:48:42 of 2) [code = SHINGLES VACCINES (1 of 2)] Future Scheduled 2022-03-25 BREAST CANCER [facility] Test 14:48:42 SCREENING [code = BREAST CANCER SCREENING] Future Scheduled 2022-03-25 COLONOSCOPY SCREENING [facility] Test 14:48:42 [code = COLONOSCOPY SCREENING] Future Scheduled 2022-03-25 HEPATITIS B VACCINES Met [facility] Test 14:48:42 (1 of 3 [...] 2022-03-25 INFLUENZA VACCINE Method [facility] Test 14:48:42 [code = INFLUENZA VACCINE] Future Scheduled 2022-03-25 SHINGLES VACCINES (1 Met [facility] Test 14:48:42 of 2) [code = SHINGLES VACCINES (1 of 2)] Future Scheduled 2022-03-25 BREAST CANCER [facility] Test 14:48:42 SCREENING [code = BREAST CANCER SCREENING] Future Scheduled 2022-03-25 COLONOSCOPY SCREENING [facility] Test 14:48:42 [code = COLONOSCOPY SCREENING] Future Scheduled 2022-03-25 HEPATITIS B VACCINES Met [facility] Test 14:48:42 (1 of 3 - Risk 3-dose series) [code = HEPATITIS B VACCINES (1 of 3 - Risk 3-dose series)] Future Scheduled 2022-03-25 COVID-19 VACCINE (3 - Me [facility] Test 14:48:42 Booster for Pfizer series) [code = COVID-19 VACCINE (3 - Booster for Pfizer series)] Future Scheduled 2022-03-25 65+ [facility] 14:48:42 VACCINE (4 - PPSV23 if available, else PCV20) [code = 65+ PNEUMOCOCCAL VACCINE (4 - PPSV23 if available, else PCV20)] Future Scheduled 2022-03-25 [facility] 14:48:42 [code = INFLUENZA VACCINE] Future Scheduled 2022-03-25 SHINGLES VACCINES (1 Met [facility] Test 14:48:42 of 2) [code = SHINGLES VACCINES (1 of 2)] Future Scheduled 2022-03-25 BREAST CANCER [facility] Test 14:48:42 SCREENING [code = BREAST CANCER SCREENING] Future Scheduled 2022-03-25 COLONOSCOPY SCREENING [facility] Test 14:48:42 [code = COLONOSCOPY SCREENING] Future Scheduled 2022-03-25 HEPATITIS B VACCINES Met [facility] Test 14:48:42 (1 of 3 - Risk 3-dose series) [code = HEPATITIS B VACCINES (1 of 3 - Risk 3-dose series)] Future Scheduled 2022-03-25 COVID-19 VACCINE (3 - [facility] Test 14:48:42 Booster for Pfizer series) [code = COVID-19 VACCINE (3 - Booster for Pfizer series)] Future Scheduled 2022-03-25 65+ PNEUMOCOCCAL [facility] Test 14:48:42 VACCINE (4 - PPSV23 if available, else PCV20) [code = 65+ PNEUMOCOCCAL VACCINE (4 - PPSV23 if available, else PCV20)] Future Scheduled 2022-03-25 INFLUENZA VACCINE Method [facility] Test 14:48:42 [code = INFLUENZA VACCINE] Future Scheduled 2022-03-04 SHINGLES VACCINES (1 Met [facility] Test 14:03:57 of 2) [code = SHINGLES VACCINES (1 of 2)] Future Scheduled 2022-03-04 BREAST CANCER [facility] Test 14:03:57 SCREENING [code = BREAST CANCER SCREENING] Future Scheduled 2022-03-04 COLONOSCOPY SCREENING [facility] Test 14:03:57 [code = COLONOSCOPY SCREENING] Future Scheduled 2022-03-04 HEPATITIS B VACCINES Met [facility] Test 14:03:57 (1 of 3 - Risk 3-dose series) [code = HEPATITIS B VACCINES (1 of 3 - Risk 3-dose series)] Future Scheduled 2022-03-04 COVID-19 VACCINE (3 - [facility] Test 14:03:57 Booster for Pfizer series) [code [...] Future Scheduled 2022-03-04 SHINGLES VACCINES (1 Met [facility] Test 14:03:57 of 2) [code = SHINGLES VACCINES (1 of 2)] Future Scheduled 2022-03-04 BREAST CANCER [facility] Test 14:03:57 SCREENING [code = BREAST CANCER SCREENING] Future Scheduled 2022-03-04 COLONOSCOPY SCREENING [facility] Test 14:03:57 [code = COLONOSCOPY SCREENING] Future Scheduled 2022-03-04 HEPATITIS B VACCINES Met [facility] Test 14:03:57 (1 of 3 - Risk 3-dose series) [code = HEPATITIS B VACCINES (1 of 3 - Risk 3-dose series)] Future Scheduled 2022-03-04 COVID-19 VACCINE (3 - [facility] Test 14:03:57 Booster for Pfizer series) [code = COVID-19 VACCINE (3 - Booster for Pfizer series)] Future Scheduled 2022-03-04 65[facility] 14:03:57 VACCINE (4 - PPSV23 if available, else PCV20) [code = 65+ PNEUMOCOCCAL VACCINE (4 - PPSV23 if available, else PCV20)] Future Scheduled 2022-03-04 INFLUENZA VACCINE Method [facility] Test 14:03:57 [code = INFLUENZA VACCINE] Future Scheduled 2022-03-04 SHINGLES VACCINES (1 Met [facility] Test 14:03:57 of 2) [code = SHINGLES VACCINES (1 of 2)] Future Scheduled 2022-03-04 BREAST CANCER [facility] Test 14:03:57 SCREENING [code = BREAST CANCER SCREENING] Future Scheduled 2022-03-04 COLONOSCOPY SCREENING [facility] Test 14:03:57 [code = COLONOSCOPY SCREENING] Future Scheduled 2022-03-04 HEPATITIS B VACCINES Met [facility] Test 14:03:57 (1 of 3 - Risk 3-dose series) [code = HEPATITIS B VACCINES (1 of 3 - Risk 3-dose series)] Future Scheduled 2022-03-04 COVID-19 VACCINE (3 - [facility] Test 14:03:57 Booster for Pfizer series) [code = COVID-19 VACCINE (3 - Booster for Pfizer series)] Future Scheduled 2022-03-04 65+ PNEUMOCOCCAL [facility] Test 14:03:57 VACCINE (4 - PPSV23 if available, else PCV20) [code = 65+ PNEUMOCOCCAL VACCINE (4 - PPSV23 if available, else PCV20)] Future Scheduled 2022-03-04 INFLUENZA VACCINE Method [facility] Test 14:03:57 [code = INFLUENZA VACCINE] Future Scheduled 2022-03-04 SHINGLES VACCINES (1 Met [facility] Test 14:03:57 of 2) [code = SHINGLES VACCINES (1 of 2)] Future Scheduled 2022-03-04 BREAST CANCER [facility] Test 14:03:57 SCREENING [code = BREAST CANCER SCREENING] Future Scheduled 2022-03-04 COLONOSCOPY SCREENING [facility] Test 14:03:57 [code = COLONOSCOPY SCREENING] Future Scheduled 2022-03-04 HEPATITIS B VACCINES Met [facility] Test 14:03:57 (1 of 3 - Risk 3-dose series) [code = HEPATITIS B VACCINES (1 of 3 - Risk 3-dose series)] Future Scheduled 2022-03-04 COVID-19 VACCINE (3 - Me [facility] Test 14:03:57 Booster for Pfizer series) [code = COVID-19 VACCINE (3 - Booster for Pfizer series)] Future Scheduled 2022-03-04 65+ PNEUMOCOCCAL [facility] Test 14:03:57 VACCINE (4 - PPSV23 if available, else PCV20) [code = 65+ PNEUMOCOCCAL VACCINE (4 - PPSV23 if available, else PCV20)] Future Scheduled 2022-03-04 INFLUENZA VACCINE Method [facility] Test 14:03:57 [code = INFLUENZA VACCINE] Future Scheduled 2022-02-11 SHINGLES VACCINES (1 Met [facility] Test 13:39:12 of 2) [code = SHINGLES VACCINES (1 of 2)] Future Scheduled 2022-02-11 BREAST CANCER [facility] Test 13:39:12 SCREENING [code = BREAST CANCER SCREENING] Future Scheduled 2022-02-11 COLONOSCOPY SCREENING [facility] Test 13:39:12 [code = COLONOSCOPY SCREENING] Future Scheduled 2022-02-11 HEPATITIS B VACCINES Met [facility] Test 13:39:12 (1 of 3 - Risk 3-dose series) [code = HEPATITIS B VACCINES (1 of 3 - Risk 3-dose series)] Future Scheduled 2022-02-11 COVID-19 VACCINE (3 - Me [facility] Test 13:39:12 Booster for Pfizer series) [code = COVID-19 VACCINE (3 - Booster for Pfizer series)] Future Scheduled 2022-02-11 65+ PNEUMOCOCCAL [facility] Test 13:39:12 VACCINE (4 - PPSV23 or PCV20) [code = 65+ PNEUMOCOCCAL VACCINE (4 - PPSV23 or PCV20)] Future Scheduled 2022-02-11 INFLUENZA VACCINE Method [facility] Test 13:39:12 [code = INFLUENZA VACCINE] Future Scheduled 2022-01-29 SHINGLES VACCINES (1 Met [facility] Test 14:07:20 of 2) [code = SHINGLES VACCINES (1 of 2)] Future Scheduled 2022-01-29 BREAST CANCER [facility] Test 14:07:20 SCREENING [code = BREAST CANCER SCREENING] Future Scheduled 2022-01-29 COLONOSCOPY SCREENING [facility] Test 14:07:20 [code = COLONOSCOPY SCREENING] Future Scheduled 2022-01-29 HEPATITIS B VACCINES Met [facility] Test 14:07:20 (1 of 3 - Risk 3-dose series) [code = HEPATITIS B VACCINES (1 of 3 - Risk 3-dose series)] Future Scheduled 2022-01-29 COVID-19 VACCINE (3 - [facility] Test 14:07:20 Booster for Pfizer series) [code = COVID-19 VACCINE (3 - Booster for Pfizer series)] Future Scheduled 2022-01-29 65+ PNEUMOCOCCAL [facility] Test 14:07:20 VACCINE (4 - PPSV23 or PCV20) [code = 65+ PNEUMOCOCCAL VACCINE (4 - PPSV23 or PCV20)] Future Scheduled 2022-01-29 INFLUENZA VACCINE [facility] Test 14:07:20 [code = INFLUENZA VACCINE] Future Scheduled 2022-01-29 SHINGLES VACCINES (1 Met [facility] Test 14:07:20 of 2) [code = SHINGLES VACCINES (1 of 2)] Future Scheduled 2022-01-29 BREAST CANCER [facility] Test 14:07:20 SCREENING [code = BREAST CANCER SCREENING] Future Scheduled 2022-01-29 COLONOSCOPY SCREENING [facility] [place] Test 14:07:20 [code = COLONOSCOPY SCREENING] Future Scheduled 2022-01-29 HEPATITIS B VACCINES Met [facility] Test 14:07:20 (1 of 3 [...] Future Scheduled 2022-01-29 SHINGLES VACCINES (1 Met [facility] Test 14:07:20 of 2) [code = SHINGLES VACCINES (1 of 2)] Future Scheduled 2022-01-29 BREAST CANCER [facility] Test 14:07:20 SCREENING [code = BREAST CANCER SCREENING] Future Scheduled 2022-01-29 COLONOSCOPY SCREENING [facility] [place] Test 14:07:20 [code = COLONOSCOPY SCREENING] Future Scheduled 2022-01-29 HEPATITIS B VACCINES Met [facility] Test 14:07:20 (1 of 3 - Risk 3-dose series) [code = HEPATITIS B VACCINES (1 of 3 - Risk 3-dose series)] Future Scheduled 2022-01-29 COVID-19 VACCINE (3 - [facility] [place] Test 14:07:20 Booster for Pfizer series) [code [...] Future Scheduled 2022-01-29 SHINGLES VACCINES (1 Met [facility] Test 14:07:20 of 2) [code = SHINGLES VACCINES (1 of 2)] Future Scheduled 2022-01-29 BREAST CANCER [facility] Test 14:07:20 SCREENING [code = BREAST CANCER SCREENING] Future Scheduled 2022-01-29 COLONOSCOPY SCREENING [facility] [place] Test 14:07:20 [code = COLONOSCOPY SCREENING] Future Scheduled 2022-01-29 HEPATITIS B VACCINES Met [facility] Test 14:07:20 (1 of 3 - Risk 3-dose series) [code = HEPATITIS B VACCINES (1 of 3 - Risk 3-dose series)] Future Scheduled 2022-01-29 COVID-19 VACCINE (3 - [facility] [place] Test 14:07:20 Booster for Pfizer series) [code = COVID-19 VACCINE (3 - Booster for Pfizer series)] Future Scheduled 2022-01-29 65+ PNEUMOCOCCAL [facility] [place] Test 14:07:20 VACCINE (4 - PPSV23 or PCV20) [code = 65+ PNEUMOCOCCAL VACCINE (4 - PPSV23 or PCV20)] Future Scheduled 2022-01-29 INFLUENZA VACCINE Method [facility] Test 14:07:20 [code = INFLUENZA VACCINE] Future Scheduled 2022-01-20 SHINGLES VACCINES (1 Met [facility] Test 06:12:34 of 2) [code = SHINGLES VACCINES (1 of 2)] Future Scheduled 2022-01-20 Screening for [facility] Test 06:12:34 malignant neoplasm of cervix (procedure) [code = 874941183] Future Scheduled 2022-01-20 BREAST CANCER [facility] Test 06:12:34 SCREENING [code = BREAST CANCER SCREENING] Future Scheduled 2022-01-20 COLONOSCOPY SCREENING [facility] [place] Test 06:12:34 [code = COLONOSCOPY SCREENING] Future Scheduled 2022-01-20 HEPATITIS B VACCINES Met [facility] Test 06:12:34 (1 of 3 - Risk 3-dose series) [code = HEPATITIS B VACCINES (1 of 3 - Risk 3-dose series)] Future Scheduled 2022-01-20 COVID-19 VACCINE (3 - [facility] [place] Test 06:12:34 Booster for Pfizer series) [code = COVID-19 VACCINE (3 - Booster for Pfizer series)] Future Scheduled 2022-01-20 65+ PNEUMOCOCCAL [facility] [place] Test 06:12:34 VACCINE (4 - PPSV23 or PCV20) [code = 65+ PNEUMOCOCCAL VACCINE (4 - PPSV23 or PCV20)] Future Scheduled 2022-01-20 INFLUENZA VACCINE Method [facility] Test 06:12:34 [code = INFLUENZA VACCINE] Future Scheduled 2022-01-16 SHINGLES VACCINES (1 Met [facility] Test 12:09:25 of 2) [code = SHINGLES VACCINES (1 of 2)] Future Scheduled 2022-01-16 Screening for [facility] Test 12:09:25 malignant neoplasm of cervix (procedure) [code = [id number]] Future Scheduled 2022-01-16 BREAST CANCER [facility] Test 12:09:25 SCREENING [code = BREAST CANCER SCREENING] Future Scheduled 2022-01-16 COLONOSCOPY SCREENING [facility] [place] Test 12:09:25 [code = COLONOSCOPY SCREENING] Future Scheduled 2022-01-16 HEPATITIS B VACCINES Met [facility] Test 12:09:25 (1 of 3 - Risk 3-dose series) [code = HEPATITIS B VACCINES (1 of 3 - Risk 3-dose series)] Future Scheduled 2022-01-16 COVID-19 VACCINE (3 - [facility] [place] Test 12:09:25 Booster for Pfizer series) [code = COVID-19 VACCINE (3 - Booster for Pfizer series)] Future Scheduled 2022-01-16 65+ [facility]OCOCCAL [facility] Test 12:09:25 VACCINE (4 - PPSV23 or PCV20) [code = 65+ PNEUMOCOCCAL VACCINE (4 - PPSV23 or PCV20)] Future Scheduled 2022-01-16 INFLUENZA VACCINE Method [facility] Test 12:09:25 [code = INFLUENZA VACCINE] Future Scheduled 2022-01-14 SHINGLES VACCINES (1 Met [facility] Test 04:11:46 of 2) [code = SHINGLES VACCINES (1 of 2)] Future Scheduled 2022-01-14 Screening for [facility] Test 04:11:46 malignant neoplasm of cervix (procedure) [code = [id number]] Future Scheduled 2022-01-14 BREAST CANCER [facility] Test 04:11:46 SCREENING [code = BREAST CANCER SCREENING] Future Scheduled 2022-01-14 COLONOSCOPY SCREENING [facility] [place] Test 04:11:46 [code = COLONOSCOPY SCREENING] Future Scheduled 2022-01-14 HEPATITIS B VACCINES Met [facility] Test 04:11:46 (1 of 3 - Risk 3-dose series) [code = HEPATITIS B VACCINES (1 of 3 - Risk 3-dose series)] Future Scheduled 2022-01-14 COVID-19 VACCINE (3 - Me [facility] Test 04:11:46 Booster for Pfizer series) [code = COVID-19 VACCINE (3 - Booster for Pfizer series)] Future Scheduled 2022-01-14 65+ PNEUMOCOCCAL [facility] [place] Test 04:11:46 VACCINE (4 - PPSV23 or PCV20) [code = 65+ PNEUMOCOCCAL VACCINE (4 - PPSV23 or PCV20)] Future Scheduled 2022-01-14 INFLUENZA VACCINE Method [facility] Test 04:11:46 [code = INFLUENZA VACCINE] Future Scheduled 2021-08-26 Screening for [facility] Test 13:02:23 malignant neoplasm of cervix (procedure) [code = [id number]] Future Scheduled 2021-08-26 BREAST CANCER [facility] Test 13:02:23 SCREENING [code = BREAST CANCER SCREENING] Future Scheduled 2021-08-26 COLONOSCOPY SCREENING [facility] [place] Test 13:02:23 [code = COLONOSCOPY SCREENING] Future Scheduled 2021-08-26 Screening for [facility] Test 13:02:23 malignant neoplasm of lung (procedure) [code = 870720470] Future Scheduled 2021-08-26 SHINGLES VACCINES (#1) M [facility] Test 13:02:23 [code = SHINGLES VACCINES (#1)] Future Scheduled 2021-08-26 COVID-19 VACCINE (3 - [facility] [place] Test 13:02:23 Pfizer risk 4-dose series) [code = COVID-19 VACCINE (3 - Pfizer risk 4-dose series)] Future Scheduled 2021-08-26 65+ PNEUMOCOCCAL [facility] [place] Test 13:02:23 VACCINE (4 of 4 - PPSV23) [code = 65+ PNEUMOCOCCAL VACCINE (4 of 4 - PPSV23)] Future Scheduled 2021-08-26 INFLUENZA VACCINE Method [facility] Test 13:02:23 [code = INFLUENZA VACCINE] Encounters Start End Encounter Admission Attending Care Care Encounter Source Date/Time Date/Time Type Type Clinicians Facility Department ID 2022-02-18 Outpatient [facility]W [place] [id number] [place] 14:30:[address] [place] [address] 2021-07-14 Outpatient PANKAJ [facility] [id number] [place] 09:33:51 [facility] 2021-06-02 Outpatient HEMATPOUR, [facility] [id number] [place] 13:58:59 [facility] 2021-04-28 Outpatient HEMATPOUR, [facility] [id number] [place] 11:21:22 [facility] 2021-03-20 Emergency [facility] [id number] Univers 16:07:40 [facility] 2020-12-12 Outpatient HEMATPOUR, [facility] [id number] [place] 08:16:46 [facility]ASHRENALDOR [facility]alt [facility] 2020-10-31 Outpatient HEMATPOUR, [facility] [id number] [place] 09:44:50 KHASHAYAR Healt 2020-09-30 Outpatient HEMATPOUR, [facility] [id number] [place] 13:16:03 [facility] 2022-11-26 2022-11-26 Outpatient R [facility] [id number] Univers 08:30:00 08:30:00 [facility] 2022-11-15 2022-11-15 Outpatient R [facility] [id number] Univers 08:30:00 08:30:00 [facility] 2022-11-02 2022-11-02 Outpatient R EAST, [facility] [id number] Univers 08:30:00 08:30:00 [facility] 2022-10-27 2022-10-27 Telephone [facility], UNIVERSIT 1.2.840.114 [id number] Univers 00:00:00 00:00:00 [facility] 350..13.10 i ty [place] [id number] [facility] [address] 2022-10-06 2022-10-06 Outpatient [facility] [id number] Univers 09:30:00 09:30:00 [facility] 2022-09-26 2022-09-26 Refill [facility], UNIVERSIT 1.2.312.020 [id number] Univers 00:00:00 00:00:00 [facility] 350..13.10 i [place] [id number] [facility] [address] [place] 2022-09-03 2022-09-03 Outpatient R [facility] [id number] Univers 11:00:00 11:00:00 SANTIAGO charlie [facility] 2022-08-24 2022-08-24 Refill East, 1.2.840.9 [id number] Univers 00:00:00 00:00:00 Santiago 70961.1.1 ity of 3.104.2.7 [place] .3.259588 Medica l .8 [place] 2022-05-20 2022-05-20 [facility] 1.2.840.114 [id number] Univers 00:00:00 00:00:00 [facility] 350.1.13.10 i [place] [id number] [address] 2022-05-10 2022-05-10 Emergency [facility] [id number] Univers 10:30:00 16:31:00 [facility] [place] [facility] 2022-05-10 2022-05-10 Emergency Byron, TRAUMA 1.2.840.114 [id number] Univers 10:30:00 16:31:00 [facility] 350.1.13.10 [place] [id number] [facility] [address] [place] 2022-05-10 2022-05-10 [facility] 1.2.840.114 [id number] Univers 00:00:00 00:00:00 [facility] 350.1.13.10 i [place] [id number] [address] 2022-05-08 2022-05-08 Emergency [facility] [id number] Univers 16:18:00 18:42:00 [facility] 2022-05-08 2022-05-08 Emergency [facility] 1.2.840.114 [id number] Univers 16:18:00 18:42:00 Theresa BULLOCK 350.1.13.10 ity of [facility] 4.2.7.2.686 [facility] [id number] [address] 2022-05-07 2022-05-07 Telephone [facility] 1.2.840.114 [id number] Univers 00:00:00 00:00:00 [facility] 350.1.13.10 i [place] [id number] [address] 2022-05-06 2022-05-06 Emergency X [facility] ERT [id number] Univers 14:13:00 18:19:[address] [facility] 2022-05-06 2022-05-06 Emergency [facility] 1.2.320.122 [id number] Univers 14:13:00 18:19:00 MargieJimi BULLOCK 350.1.13.10 ity of [place] 4.2.7.2.686 [facility] [id number] [address] 2022-05-06 2022-05-06 Telephone [facility] 1.2.840.114 [id number] Univers 00:00:00 00:00:00 [facility] 350.1.13.10 i [place] [id number] [address] 2022-04-22 2022-04-22 Emergency X [facility] ERT [id number] Univers 13:55:00 17:00:[address] [facility] 2022-04-22 2022-04-22 [facility] 1.2.696.741 [id number] Univers 13:55:00 17:00:00 Paulette Isreal KOBE 350.1.13.10 i ty of [place] 4.2.7.2.686 [facility] [id number] [address] 2022-04-07 2022-04-07 Outpatient R ADRIAN, [facility] [id number] Univers 20:40:00 20:40:00 ATTENDING ity [facility] 2022-04-07 2022-04-07 Telephone Devin, 1.2.840.6 [id number] Univers 00:00:00 00:00:00 Robbi R 94842.1.1 i ty of 3.104.2.7 [place] .3.459916 Medica l .8 [place] 2022-03-05 2022-03-05 Hand Rounder Santiago Cardenas 1.2.840.1 [id number] Univers 13:45:00 14:00:00 Visit [facility] 28025.1.1 ity of 3.104.2.7 [place] .3.014653 Medica l .8 [place] 2022-03-05 2022-03-05 Office FRANCO Cardenas 1.2.012.679 [id number] Univers 13:00:00 13:30:00 Visit Santiago Rodriguez [facility] 350.1.13.10 i ty of [place] 4[place] [id number] [facility] [address] [place] 2022-03-05 2022-03-05 Outpatient R [facility] [id number] Univers 13:00:00 13:00:00 [facility] 2022-02-26 2022-02-26 Outpatient R [facility] [id number] Univers 08:30:00 08:30:00 [facility] 2022-02-26 2022-02-26 Outpatient R [facility] [id number] Univers 08:30:00 08:30:00 [facility] 2022-02-17 2022-02-17 Transition Stevo, 1.2.840.6 [id number] Univers 00:00:00 00:00:00 of Care Isaias Arredondo 66722.1.1 it y of 3.104.2.7 [place] .3.457992 Medica l .8 [place] 2022-02-10 2022-02-16 Inpatient X [facility] [id number] Univers 22:59:00 19:27:[address] [facility] 2022-02-10 2022-02-16 Hospital Reilly Means 1.2.840.1 [id number] Univers 22:59:00 19:27:00 Encounter Ofe Shields 12422.1.1 ity of [place] 3.104.2.7 [place] .3.306575 Medica l .8 [place] 2022-02-11 2022-02-11 Telephone [place], 1.2.840.7 [id number] Univers 00:00:00 00:00:00 Santiago 35900.1.1 ity of 3.104.2.7 [place] .3.656237 Medica l .8 [place] 2022-02-10 2022-02-10 Travel 1.2.840.1 1.2.720.140 [id number] Univers 00:00:00 00:00:00 67537.1.1 350.1.13.10 ity of 3.104.2.7 4.[place].7.3.698 [place] .3.836577 084.8 Medica l .8 [place] 2022-01-30 2022-01-30 Telephone East, 1.2.840.2 [id number] Univers 00:00:00 00:00:00 Santiago 19117.1.1 ity of 3.104.2.7 [place] .3.561449 Medica l .8 [place] 2022-01-06 2022-01-06 Orders Doctor FERMIN 1.2.840.114 [id number] Univers 00:00:00 00:00:00 Only Unassigned, JACKELINE 350.1.13.10 ity of [place] [facility] 4.2.7.2.686 Yomi as [id number] [address] 2021-12-25 2021-12-25 Orders Doctor FERMIN 1.2.840.114 [id number] Univers 00:00:00 00:00:00 Only Unassigned, JACKELINE 350.1.13.10 ity of [place] [facility] 4.2.7.2.686 Yomi as [id number] [address] 2021-12-12 2021-12-13 Emergency X Bill GUO [facility] ERT [id number] Univers 23:53:00 01:52:00 ity of [facility] 2021-12-122021-12-13 Emergency Sanket, K [facility] 1.2.840.114 [id number] Univers 23:53:00 01:52:00 Kiersten BULLOCK 350.1.13.10 i ty of [place]2.[place] [id number] [facility] [address] 2021-11-20 2021-11-20 Hand Rounder [facility] UNIVERSIT 1.2.840.114 [id number] Univers 09:45:00 10:00:00 Visit Ronald [facility] 350.1.13.10 ity of [facility] 4.2.7.[place] [id number] [facility] [address] 2021-11-20 2021-11-20 Office [facility] 1.2.087.885 [id number] Univers 08:30:00 09:00:00 Visit [facility] 350.1.13.10 i ty of [facility] 4.2.7.2.[place] [id number] [facility] [address] 2021-11-20 2021-11-20 Outpatient R [facility] [id number] Univers 08:30:00 08:30:00 [facility] 2021-11-20 2021-11-20 Outpatient R [facility] [id number] Univers 08:30:00 08:30:00 [facility] 2021-11-20 2021-11-20 Outpatient R [facility] [id number] Univers 08:30:00 08:30:00 [facility] 2021-11-20 2021-11-20 Outpatient R [facility] [id number] Univers 08:30:00 08:30:00 [facility] 2021-10-24 2021-10-24 Emergency X WALKER [facility] ERT [id number] Univers 16:27:00 22:26:00 [facility] 2021-10-24 2021-10-24 Emergency X [facility]ER [facility] ERT [id number] Univers 16:27:00 [facility]:26:[facility] 2021-10-24 2021-10-24 Emergency Reilly Means [facility] 1.2.840. 114 [id number] Univers 16:27:00 22:26:00 Charity Mcallister 350.1.13.10 ity of [facility] 4.2.7.2.686 [facility] [id number] [address] 2021-10-23 2021-10-24 [facility] [id number] Univers 20:22:00 02:57[facility] 2021-10-23 2021-10-24 Emergency [facility] 1.2.971.365 [id number] Univers 20:22:00 02:57:00 Charity Bach [place] 350.1.13.10 ity of [place] 4.2.7.2.686 [facility] [id number] [address] 2021-09-07 2021-09-07 Outpatient R SELF, [facility] [id number] Univers 08:00:00 08:00:00 GADIEL rodas [facility] 2021-09-07 2021-09-07 Outpatient R SELF, [facility] [id number] Univers 08:00:00 08:00:00 GADIEL familia lela rodas [facility] 2021-08-21 2021-08-21 Outpatient R [facility] [id number] Univers 10:45:00 10:45:00 SANTIAGO barbosa [facility] 2021-08-21 2021-08-21 Hand Rounder Santiago Cardenas 1.2.840.1 [id number] Univers 10:45:00 10:45:00 Visit c-Lab 54821.1.1 ity of 3.104.2.7 [place] .3.198600 Medica l .8 [place] 2021-08-21 2021-08-21 Office Qi Cardenas2.840.9 [id number] Univers 08:30:00 09:00:00 Visit Santiago 23988.1.1 ity of 3.104.2.7 [place] .3.704430 Medica l .8 [place] 2021-08-21 2021-08-21 Office [facility] 1.2.722.200 [id number] Univers 08:30:00 09:00:00 Visit Santiago [facility] 350.1.13.10 i ty of CLINICS 4.2.7.2.686 Richi bach [id number] [facility] [address] 2021-08-21 2021-08-21 Outpatient R [facility] [id number] Univers 08:30:00 08:30:[address] [facility] 2021-08-21 2021-08-21 Travel 1.2.840.1 1.2.939.282 [id number] Univers 00:00:00 00:00:00 00356.1.1 350.1.13.10 ity of 3.104.2.7 4.[place].7.3.698 [place] .3.557639 084.8 Medica l .8 [place] 2021-08-14 2021-08-14 Telephone East, 1.2.840.7 [id number] Univers 00:00:00 00:00:00 Santiago 83441.1.1 ity of 3.104.2.7 [place] .3.532305 Medica l .8 [place] 2021-08-13 2021-08-13 Telephone East, 1.2.840.8 [id number] Univers 00:00:00 00:00:00 Santiago 82002.1.1 ity of 3.104.2.7 [place] .3.757951 Medica l .8 [place] 2021-08-11 2021-08-11 Outpatient [facility] [id number] Univers 08:00:00 08:00:00 SANTIAGO barbosa [facility] 2021-08-05 2021-08-05 Inpatient RAUL Ashely WINTER OUTD [id number] [facility] 05:24:00 05:24:00 Mike 31 [facility] 2021-07-20 2021-07-20 Outpatient [facility] [id number] Univers 10:00:00 10:00:00 [facility] 2021-07-14 2021-07-14 Office Pankaj, UTP 6400 1.2.840.114 [id number] [place] 08:45:00 09:34:[address] 350.1.13.58 Health 9.2.7.2.686 [id number] 1 2021-07-09 2021-07-09 Telephone Maryjaneporay, UTP 6400 1.2.840.114 [id number] [place] 00:00:00 00:00:[address] 350.1.13.58 Health 9.2.7.2.686 [id number] 1 2021-07-09 2021-07-09 Telephone Maryjaneporay, UTP 6400 1.2.840.114 [id number] [place] 00:00:00 00:00:[address] 350.1.13.58 Health 9.2.7.2.686 [id number] 1 2021-07-03 2021-07-03 Outpatient R EAST, [facility] [id number] Univers 08:00:00 08:00:00 [facility] 2021-06-17 2021-06-17 Inpatient Ashely, HCACL INTE.02 [id number] [facility] 10:56:00 14:36:[address] [place] [address] 2021-06-15 2021-06-15 Outpatient R SELF, [facility] [id number] Univers 10:15:00 11:07:21 GADIELKEI vogel [facility] 2021-06-15 2021-06-15 Outpatient R SELF, [facility] [id number] Univers 10:15:00 10:15:00 GADIEL familia vogel [facility] 2021-06-15 2021-06-15 Outpatient R SELF, [facility] [id number] Univers 10:15:00 10:15:00 GADIELKEI vogel [facility] 2021-06-15 2021-06-15 Orders Doctor 1.2.840.5 [id number] Univers 00:00:00 00:00:00 Only Unassigned, 24352.1.1 ity of [place] 3.104.2.7 [place] .3.374138 Medica l .8 Branch 2021-06-15 2021-06-15 Travel 1.2.840.1 1.2.389.796 [id number] Univers 00:00:00 00:00:00 19238.1.1 350.1.13.10 ity of 3.104.2.7 4.[place].7.3.698 [place] .3.038602 084.8 Medica l .8 [place] 2021-06-11 2021-06-11 Refill East, UN[facility]ERSIT 1.2.950.987 [id number] Univers 00:00:00 00:00:00 [facility] 350.1.13.10 i ty of CL[place] 4[place] [id number] [facility] [address] [place] 2021-06-11 2021-06-11 Refill [facility], 1.2.840.8 [id number] Univers 00:00:00 00:00:00 [place] 53793.1.1 ity of 3.104.2.7 [place] .3.954579 Medica l .8 [place] 2021-06-05 2021-06-05 [facility] [id number] Univers 09:00:00 09:00:00 SANTIAGO ity of [facility] 2021-06-02 2021-06-02 Telephone [facility] 1.2.840.114 [id number] Univers 00:00:00 00:00:00 [facility] 350.1.13.10 i ty of CL[place] 4[place] [id number] [facility] [address] [place] 2021-06-02 2021-06-02 Telephone East, 1.2.840.3 [id number] Univers 00:00:00 00:00:00 [place] 71815.1.1 ity of 3.104.2.7 [place] .3.338177 Medica l .8 [place] 2021-05-29 2021-05-29 Telephone East, 1.2.840.1 [id number] [id number] Univers 00:00:00 00:00:00 [place] 78257.1.1 ity of 3.104.2.7 [place] .3.495907 Medica l .8 [place] 2021-05-29 2021-05-29 Telephone Ronald, 1.2.840.3 [id number] [id number] Univers 00:00:00 00:00:00 [place] 37037.1.1 ity of 3.104.2.7 [place] .3.729118 Medica l .8 [place] 2021-05-25 2021-05-25 Outpatient R SELF, [facility] [id number] Univers 08:00:00 08:00:00 GADIEL rodas [facility] 2021-04-29 2021-04-29 Outpatient R LALA, [facility] [id number] Univers 08:00:00 08:00:00 NIKOLAI barbosa [facility] 2021-04-28 2021-04-28 Telephone Ap, [facility] 6400 1.2.840.114 [id number] [place] 00:00:00 00:00:[address] 350.1.13.58 Health 9.2.7.2.686 [id number] 2021-04-28 2021-04-28 Telephone Jailyn 1.2.840.8 [id number] 21 [id number] Methodi 00:00:00 00:00:[address] 3.430.2.7 Hospit a .3.832565 l .8 2021-03-31 2021-03-31 Orders Carol Ann, 1.2.840.1 [id number] 21 [id number] Methodi 00:00:00 00:00:00 Only Sarai Lieberman 46212.1.1 979 s t 3.430.2.7 Hospit a .3.380090 l .8 2021-03-30 2021-03-30 Outpatient R SELF, [facility] [id number] Univers 08:45:00 08:45:00 GADIEL rodas [facility] 2021-03-24 2021-03-24 Telephone Jailyn 1.2.840.2 [id number] 21 [id number] Methodi 00:00:00 00:00:[address] 3.430.2.7 Hospit a .3.539527 l .8 2021-02-13 2021-02-13 Telephone Ronald, 1.2.840.6 [id number] Univers 00:00:00 00:00:00 [place] 08242.1.1 ity of 3.104.2.7 [place] .3.220737 Medica l .8 Branch 2021-01-28 2021-01-28 Outpatient R LALA, [facility] [id number] Univers 08:45:00 09:37:00 NIKOLAI ity of [facility] 2021-01-28 2021-01-28 Travel 1.2.840.1 1.2.611.470 0608 9777 [facility] 00:00:00 00:00:00 42279.1.1 350.1.13.10 ity of 3.104.2.7 [place]7.3.698 [place] .3.483818 084.8 Medica l .8 Branch 2021-01-19 2021-01-19 Telephone Prabhu, 1.2.840.1 [id number] 2100 [id number] Methodi 00:00:00 00:00:[address] 3.430.2.7 Hospit a .3.861967 l .8 2021-01-04 2021-01-04 Dmitry Bass, 1.2.840.0 [id number] 10173 696 Univers 00:00:00 00:00:00 (Out) Dagoberto H 87249.1.1 ity of 3.104.2.7 [place] .3.012334 Medica l .8 Branch 2021-01-04 2021-01-04 Dmitry Bass, 1.2.840.8 [id number] 02465 696 Univers 00:00:00 00:00:00 (Out) Dagoberto H 34914.1.1 ity of 3.104.2.7 [place] .3.929363 Medica l .8 Branch 2021-01-03 2021-01-03 Letter Shelia, 1.2.840.3 [id number] 55218 790 Univers 00:00:00 00:00:00 (Out) Dagoberto H 27001.1.1 ity of 3.104.2.7 [place] .3.737354 Medica l .8 [place] 2021-01-03 2021-01-03 Letter Shelia, 1.2.840.2 [id number] 54184 790 Univers 00:00:00 00:00:00 (Out) Dagoberto H 54716.1.1 ity of 3.104.2.7 [place] .3.191082 Medica l .8 [place] 2021-01-02 2021-01-02 Outpatient R [facility] [id number] 786 Univers 13:40:00 13:40:00 ity of [facility] 2021-01-02 2021-01-02 Laboratory Cuba Franks 1.2.840.0 [id number] 6206 [id number] Univers 12:14:13 12:57:34 Only Lab, Adc Fam Pob I 44723.1.1 ity of 3.104.2.7 [place] .3.713874 Medica l .8 [place] 2021-01-02 2021-01-02 Laboratory [place] Franks 1.2.840.9 [id number] 7202 [id number] Univers 12:14:13 12:57:34 Only Lab, Adc Fam Pob I 01832.1.1 ity of 3.104.2.7 [place] .3.285919 Medica l .8 [place] 2021-01-02 2021-01-02 Travel 1.2.840.1 1.2.940.456 7709 2306 Univers 00:00:00 00:00:00 78978.1.1 350.1.13.10 ity of 3.104.2.7 4.2.7.3.698 [place] .3.785257 084.8 Medica l .8 [place] 2021-01-02 2021-01-02 Letter Doctor 1.2.840.5 [id number] 91460 948 Univers 00:00:00 00:00:00 (Out) Unassigned, 18725.1.1 ity of [place] 3.104.2.7 [place] .3.628565 Medica l .8 [place] 2021-01-02 2021-01-02 Letter Doctor 1.2.840.9 [id number] 64555 946 Univers 00:00:00 00:00:00 (Out) Unassigned, 97157.1.1 ity of [place] 3.104.2.7 [place] .3.956937 Medica l .8 [place] 2021-01-02 2021-01-02 Travel 1.2.840.1 1.2.924.908 9738 2306 Univers 00:00:00 00:00:00 57072.1.1 350.1.13.10 ity of 3.104.2.7 4.2.7.3.698 [place] .3.570773 084.8 Medica l .8 [place] 2021-01-02 2021-01-02 Letter Doctor 1.2.840.1 [id number] 15643 948 Univers 00:00:00 00:00:00 (Out) Unassigned, 36858.1.1 ity of [place] 3.104.2.7 [place] .3.570619 Medica l .8 [place] 2021-01-02 2021-01-02 Letter Doctor 1.2.840.3 [id number] 946 Univers 00:00:00 00:00:00 (Out) Unassigned, 44678.1.1 ity of [place] 3.104.2.7 [place] .3.212852 Medica l .8 [place] 2020-12-22 2020-12-22 Telephone Beltran, 1.2.840.9 [id number] 862 69362 Univers 00:00:00 00:00:00 Robbi Hairston 56241.1.1 i ty of 3.104.2.7 [place] .3.400793 Medica l .8 [place] 2020-12-22 2020-12-22 Telephone Beltran, 1.2.840.7 [id number] 862 02971 Univers 00:00:00 00:00:00 Roshunda R 76076.1.1 i ty of 3.104.2.7 [place] .3.241095 Medica l .8 Branch 2020-12-12 2020-12-12 Office Hematpour, UTP 6400 1.2.840.114 12 [id number] [place] 07:42:02 08:18:[address] 350.1.13.58 Health 9.2.7.2.686 325.5472974 1 2020-12-12 2020-12-12 Office Hematpour, UTP 6400 1.2.840.114 12 [id number] 07:42:02 08:18:[address] 350.1.13.58 9.2.7.2.686 [id number] 1 2020-12-09 2020-12-09 Telephone Carol Ann, 1.2.840.1 [id number] Methodi 00:00:00 00:00:00 Sarai M. 27158.1.1 316 s t 3.430.2.7 Hospit a .3.863275 l .8 2020-12-08 2020-12-08 [facility], 1.2.840.1 [id number] 2100 646919 Methodi 12:35:54 23:59:00 Encounter Ray 71306.1.[address] 3.430.2.7 Hospit a .3.613321 l .8 2020-12-08 2020-12-08 [facility], 1.2.840.1 [id number] 51575 35684 Methodi 17:25:00 17:30:[address] 3.430.2.7 Hospit a .3.187527 l .8 2020-12-08 2020-12-08 [facility], 1.2.840.1 [id number] 61507 61635 Methodi 10:30:00 11:39:56 Visit Ray 87989.1.[address] 3.430.2.7 Hospit a .3.903394 l .8 2020-12-08 2020-12-08 Travel 1.2.840.1 1.2.798.551 9472 890227 Methodi 00:00:00 00:00:[address] 3.430.2.7 0.2.7.3.698 Ho spita .3.217854 084.8 l .8 2020-12-02 2020-12-02 Hand Rounder Santiago Cardenas 1.2.840.1 [id number] [facility] 10:20:06 10:36:19 Visit [facility] 51245.1.1 ity of 3.104.2.7 [place] .3.586773 Medica l .8 Branch 2020-12-02 2020-12-02 Hand Rounder Santiago Cardenas 1.2.840.1 [id number] [facility] 10:20:06 10:36:19 Visit [facility] 71566.1.1 ity of 3.104.2.7 [place] .3.970949 Medica l .8 [place] 2020-12-02 2020-12-02 Hand Rounder [facility]ERSIT 1.2.840.114 8 [id number] 10:20:06 10:36:19 Visit HEALTH 350.1.13.10 CLINICS 4.2.7.2.686 373.5956124 316 2020-12-02 2020-12-02 Office Ronald, 1.2.840.8 [id number] 37454 528 Univers 08:31:37 09:01:37 Visit Santiago 55704.1.1 ity of 3.104.2.7 [place] .3.020915 Medica l .8 [place] 2020-12-02 2020-12-02 Outpatient R RONALD [facility] [id number] Univers 09:00:00 09:00:00 SANTIAGO itcharlie of [facility] 2020-11-25 2020-11-25 Office Beltran, 1.2.840.3 [id number] 89309 865 Univers 11:06:30 11:58:14 Visit Robbi Hairston 73942.1.1 i ty of 3.104.2.7 [place] .3.379564 Medica l .8 Branch 2020-11-25 2020-11-25 Office Devin, 1.2.840.9 [id number] 61896 865 Univers 11:06:30 11:58:14 Visit Devinaleshia Hairston 10965.1.1 i ty of 3.104.2.7 [place] .3.296438 Medica l .8 [place] 2020-11-25 2020-11-25 [facility] 1.2.840.114 [id number] 65 11:06:30 11:58:14 Visit Devinaleshia Hairston AIR DIRECTOR 350.1.13.10 REGIONAL 4.2.7.2.686 MATERNAL [id number] & CHILD [address] [place] [address] 2020-11-25 2020-11-25 Outpatient R [facility] [id number] Univers 11:00:00 11:00:00 ity of [facility] 2020-11-25 2020-11-25 Telephone Devin, 1.2.840.7 [id number] 855 80899 Univers 00:00:00 00:00:00 Robbi Marika 78615.1.1 i ty of 3.104.2.7 [place] .3.250639 Medica l .8 [place] 2020-11-25 2020-11-25 Refill East, 1.2.840.1 [id number] 52953 592 Univers 00:00:00 00:00:00 Santiago 41665.1.1 ity of 3.104.2.7 [place] .3.025072 Medica l .8 [place] 2020-11-25 2020-11-25 Travel 1.2.840.1 1.2.703.036 3796 0247 Univers 00:00:00 00:00:00 10673.1.1 350.1.13.10 ity of 3.104.2.7 4.2.7.3.698 [place] .3.727614 084.8 Medica l .8 [place] 2020-11-25 2020-11-25 Orders Doctor 1.2.840.5 [id number] 11422 064 Univers 00:00:00 00:00:00 Only Unassigned, 05890.1.1 ity of [place] 3.104.2.7 [place] .3.062262 Medica l .8 Branch 2020-11-25 2020-11-25 Telephone Devin, 1.2.840.4 [id number] 855 87307 Univers 00:00:00 00:00:00 Robbi R 89029.1.1 i ty of 3.104.2.7 [place] .3.134424 Medica l .8 Branch 2020-11-25 2020-11-25 Refill [facility], 1.2.840.0 [id number] 58816 592 Univers 00:00:00 00:00:00 Santiago 65028.1.1 ity of 3.104.2.7 [place] .3.287776 Medica l .8 Branch 2020-11-25 2020-11-25 Travel 1.2.840.1 1.2.769.357 0805 0247 Univers 00:00:00 00:00:00 23631.1.1 350.1.13.10 ity of 3.104.2.7 4.2.7.3.698 [place] .3.826953 084.8 Medica l .8 Branch 2020-11-25 2020-11-25 Orders Doctor 1.2.840.0 [id number] 26265 064 Univers 00:00:00 00:00:00 Only Unassigned, 05792.1.1 ity of [place] 3.104.2.7 [place] .3.580086 Medica l .8 Branch 2020-11-25 2020-11-25 [facility] 1.2.027.753 1545 4592 00:00:00 00:00:00 [facility] 350.1.13.10 [facility] 4.2.7.2.686 768.0698387 089 2020-11-25 2020-11-25 [facility] 1.2.386.611 9657 0821 00:00:00 00:00:00 Robbi Hairston AIR DIRECTOR 350.1.13.10 REGIONAL 4.2.7.2.686 MATERNAL [id number] & CHILD [address] [place] [address] 2020-11-14 2020-11-14 Abstract Clark, 1.2.840.1 [id number] 23200 96377 Methodi 00:00:00 00:00:[address] 3.430.2.7 Hospit a .3.816511 l .8 2020-11-14 2020-11-14 Telephone Clark, 1.2.840.1 [id number] 2100 006577 Methodi 00:00:00 00:00:[address] 3.430.2.7 Hospit a .3.250898 l .8 2020-11-12 2020-11-12 Outpatient Marika CARDENAS [facility] [id number] 323 Univers 08:30:00 08:30:00 SANTIAGO ity [facility] 2020-11-07 2020-11-07 Telephone Diana Agustinaantonina CHU 6400 1.2.840.11 4 [id number] [place] 00:00:00 00:00:[address] 350.1.13.58 Health 9.2.7.2.686 [id number] 1 2020-11-07 2020-11-07 Telephone Diana UTP 6400 1.2.840.114 124 [id number] 00:00:00 00:00:[address] 350.1.13.58 9.2.7.2.686 630.5088030 1 2020-10-31 2020-10-31 Office HematpoKIMBERLEY bell 6400 1.2.840.114 12 [id number] [place] 07:54:00 09:45:[address] 350.1.13.58 Health 9.2.7.2.686 058.1455507 1 2020-10-30 2020-10-30 Abstract Rody Maguire UTP 6400 1.2.840.1 14 [id number] [place] 00:00:00 00:00:[address] 350.1.13.58 Health 9.2.7.2.686 803.8256309 1 2020-10-29 2020-10-29 Refill East, 1.2.840.6 [id number] 00318 400 Univers 00:00:00 00:00:00 Santiago 59848.1.1 ity of 3.104.2.7 [place] .3.509543 Medica l .8 Branch 2020-10-29 2020-10-29 Refill [place], 1.2.840.7 [id number] 58989 400 Univers 00:00:00 00:00:00 Santiago 98073.1.1 ity of 3.104.2.7 [place] .3.007514 Medica l .8 Branch 2020-10-27 2020-10-27 Telephone Jailyn, 1.2.840.6 [id number] 21 [id number] Methodi 00:00:00 00:00:[address] 3.430.2.7 Hospit a .3.161865 l .8 2020-10-24 2020-10-24 Telephone Clark, 1.2.840.1 [id number] 2100 826211 Methodi 00:00:00 00:00:[address] 3.430.2.7 Hospit a .3.234931 l .8 2020-10-22 2020-10-22 Outpatient R RODO, [facility] [id number] [facility] 13:00:00 13:00:00 GADIEL vogel f [facility] 2020-10-22 2020-10-22 Travel 1.2.840.1 1.2.831.609 6791 3839 Univers 00:00:00 00:00:00 55220.1.1 350.1.13.10 ity of 3.104.2.7 4.[place].7.3.698 [place] .3.269571 084.8 Medica l .8 Branch 2020-10-22 2020-10-22 Travel 1.2.840.1 1.2.796.419 9123 3839 Univers 00:00:00 00:00:00 45691.1.1 350.1.13.10 ity of 3.104.2.7 4.2.7.3.698 [place] .3.081524 084.8 Medica l .8 Branch 2020-10-13 2020-10-13 Outpatient R RODO, [facility] [id number] Univers 08:45:00 08:45:00 GADIEL vogel clark [facility] 2020-10-06 2020-10-12 Telemedici [facility], 1.2.840.1 [id number] 21 [id number] Methodi 15:30:00 00:08:46 ne Ray 89730.1.[address] 3.430.2.7 Hospit a .3.003453 l .8 2020-09-30 2020-09-30 [facility], 1.2.840.9 [id number] Methodi 00:00:00 00:00:[address] 3.430.2.7 Hospit a .3.248754 l .8 2020-09-21 2020-09-21 Travel 1.2.840.1 1.2.095.260 0375 333200 Methodi 00:00:00 00:00:[address] 3.430.2.7 0.2.7.3.698 Ho spita .3.716248 084.8 l .8 2020-09-06 2020-09-06 [facility] 1.2.840.1 [id number] 96862 49266 Methodi 17:42:30 23:59:[address] 3.430.2.7 Hospit a .3.362190 l .8 2020-09-06 2020-09-06 [facility], 1.2.840.1 [id number] 2099 033333 Methodi 16:50:00 17:41:00 Encounter Ray [address]124.1.[address] 3.430.2.7 Hospit a .3.910622 l .8 2020-09-05 2020-09-05 [facility], 1.2.840.1 [id number] 2099 828431 Methodi 09:17:00 19:45:00 Encounter Ray [address]97.1.[address] 3.430.2.7 Hospit a .3.542594 l .8 2020-09-05 2020-09-05 Surgery Chihara, 1.2.840.1 [id number] 15621 16433 Methodi 11:30:00 13:15:[address] 3.430.2.7 Hospit a .3.092138 l .8 2020-09-05 2020-09-05 Anesthesia Remigio, 1.2.840.1 [id number] 859 2566601 Methodi 11:27:00 12:20:00 Event Anupamwathi 75503.1.1 243 s t V. 3.430.2.7 Hospit a .3.322894 l .8 2020-09-05 2020-09-05 Travel 1.2.840.1 1.2.385.030 3920 519528 Methodi 00:00:00 00:00:[address] 3.430.2.7 0.2.7.3.698 Ho spita .3.574901 084.8 l .8 2020-09-04 2020-09-04 Telephone Meisenbach, 1.2.840.1 [id number] Methodi 00:00:00 00:00:00 Sarai M. 80328.1.1 762 s t 3.430.2.7 Hospit a .3.154631 l .8 2020-09-02 2020-09-02 Telephone Meisenbach, 1.2.840.9 [id number] Methodi 00:00:00 00:00:00 Sarai M. 28192.1.1 344 s t 3.430.2.7 Hospit a .3.889269 l .8 2020-08-29 2020-08-30 [id number] [facility] 10:20:00 14:10:00 Outpatient r Lee [address] [facility] 2020-08-29 2020-08-30 Outpatient HEMATPOUR, [facility] CAR 7500 [facility] 05:20:00 09:10:00 BEVERLY 2020-08-06 2020-08-06 Office [place], 1.2.840.7 [id number] 416 Univers 08:03:23 09:17:49 Visit Santiago 16158.1.1 ity of 3.104.2.7 [place] .3.900137 Medica l .8 [place] 2020-08-06 2020-08-06 Outpatient R EAST, [facility] [id number] Univers 08:30:00 08:30:00 SANTIAGO ity of [facility] 2020-07-14 2020-07-14 Outpatient R SELF, [facility] [id number] Univers 09:30:00 09:30:00 GADIEL ity o f [facility] 2020-07-14 2020-07-14 Travel 1.2.840.1 1.2.283.083 2763 2575 Univers 00:00:00 00:00:00 09106.1.1 350.1.13.10 ity of 3.104.2.7 4.2.7.3.698 [place] .3.251869 084.8 Medica l .8 [place] 2020-07-14 2020-07-14 Orders Doctor 1.2.840.7 [id number] 309 Univers 00:00:00 00:00:00 Only Unassigned, 02754.1.1 ity of [place] 3.104.2.7 [place] .3.101944 Medica l .8 [place] 2020-06-16 2020-06-16 Outpatient R SELF, [facility] [id number] Univers 08:00:00 08:00:00 GADIEL ity o f [facility] 2020-06-06 2020-06-06 Telephone East, 1.2.840.6 [id number] 809 [id number] Univers 00:00:00 00:00:00 Santiago 86553.1.1 ity of 3.104.2.7 [place] .3.572525 Medica l .8 [place] 2020-06-04 2020-06-04 Hand Rounder Santiago Cardenas 1.2.840.1 [id number] Univers 09:31:58 09:40:12 Visit [facility] 66194.1.1 ity of 3.104.2.7 [place] .3.011235 Medica l .8 Branch 2020-06-04 2020-06-04 Office [facility] 1.2.699.940 9077 9729 Univers 08:13:41 09:28:25 Visit [facility] 350.1.13.10 i ty of CLINICS 4.2.7.2.686 [place] 366.1973952 [facility] porfirio 089 Branch 2020-06-04 2020-06-04 Outpatient R [facility] [id number] Univers 08:30:00 08:30:00 SANTIAGO ity of [facility] 2020-06-04 2020-06-04 Orders Doctor 1.2.840.0 [id number] 079 Univers 00:00:00 00:00:00 Only Unassigned, 00362.1.1 ity of [place] 3.104.2.7 [place] .3.936535 Medica l .8 Branch 2020-05-19 2020-05-19 Telephone [place], 1.2.840.1 [id number] 804 [id number] Univers 00:00:00 00:00:00 Santiago 57285.1.1 ity of 3.104.2.7 [place] .3.568596 Medica l .8 Branch 2020-04-24 2020-04-24 Telephone [place], 1.2.840.8 [id number] 799 82617 Univers 00:00:00 00:00:00 Snatiago 04266.1.1 ity of 3.104.2.7 [place] .3.221263 Medica l .8 Branch 2020-04-14 2020-04-14 Outpatient R [facility] [id number] Univers 09:00:00 09:00:00 SANTIAGO ity of [facility] 2020-04-14 2020-04-14 Telephone [place], 1.2.840.9 [id number] 797 [id number] Univers 00:00:00 00:00:00 Santiago 31706.1.1 ity of 3.104.2.7 [place] .3.439633 Medica l .8 [place] 2020-03-31 2020-03-31 Outpatient R EAST, [facility] [id number] Univers 08:30:00 08:30:00 SANTIAGO ity [facility] 2020-03-03 2020-03-03 Outpatient R SELF, [facility] [id number] Univers 08:00:00 08:00:00 GADIEL barbosa o f [facility] 2020-03-03 2020-03-03 Outpatient R SELF, [facility] [id number] Univers 08:00:00 08:00:00 GADIEL barbosa o f [facility] 2020-03-03 2020-03-03 Travel 1.2.840.1 1.2.829.679 0051 5480 Univers 00:00:00 00:00:00 91037.1.1 350.1.13.10 ity of 3.104.2.7 4.2.7.3.698 [place] .3.156416 084.8 Medica l .8 [place] 2020-02-06 2020-02-06 Telephone [place], 1.2.840.3 [id number] 781 [id number] Univers 00:00:00 00:00:00 Santiago 17834.1.1 ity of 3.104.2.7 [place] .3.817251 Medica l .8 [place] 2020-01-26 2020-01-26 Emergency Caridad, 1.2.840.4 [id number] 779 77344 Univers 10:03:00 13:05:00 Cynise 90639.1.1 ity of 3.104.2.7 [place] .3.125029 Medica l .8 [place] 2020-01-26 2020-01-26 Travel 1.2.840.1 1.2.965.433 3963 0120 Univers 00:00:00 00:00:00 42757.1.1 350.1.13.10 ity of 3.104.2.7 4.2.7.3.698 [place] .3.754512 084.8 Medica l .8 [place] 2020-01-25 2020-01-25 Outpatient R EAST, [facility] [id number] Univers 08:30:00 08:30:00 SANTIAGO barbosa [facility] 2020-01-25 2020-01-25 Telemedici [place], 1.2.840.7 [id number] Univers 07:36:49 08:06:49 ne Visit Santiago 79787.1.1 ity of 3.104.2.7 [place] .3.505077 Medica l .8 [place] 2020-01-16 2020-01-16 Outpatient R EAST, [facility] [id number] Univers 08:00:00 08:00:00 SANTIAGO itcharlie [facility] 2020-01-16 2020-01-16 Telephone East, 1.2.840.2 [id number] Univers 00:00:00 00:00:00 Santiago 00895.1.1 ity of 3.104.2.7 [place] .3.486114 Medica l .8 [place] 2020-01-14 2020-01-14 Outpatient R SELF, [facility] [id number] Univers 08:00:00 08:00:00 GADIEL rodas [facility] 2019-12-31 2019-12-31 Outpatient R SELF, [facility] [id number] Univers 08:45:00 08:45:00 GADIEL rodas [facility] 2019-10-17 2019-10-17 Outpatient R EAST, [facility] [id number] Univers 08:30:00 08:30:00 SANTIAGO barbosa [facility] 2019-10-12 2019-10-12 Outpatient R EAST, [facility] [id number] Univers 13:00:00 13:00:00 SANTIAGO itcharlie [facility] 2019-10-12 2019-10-12 Telemedici [place], 1.2.840.6 [id number] Univers 07:38:30 08:08:30 ne Visit Santiago 14931.1.1 ity of 3.104.2.7 [place] .3.252825 Medica l .8 [place] 2019-10-08 2019-10-08 Outpatient R SELF, [facility] [id number] Univers 10:15:00 10:15:00 GADIEL rodas [facility] 2019-10-03 2019-10-03 Case Assman, 1.2.840.5 [id number] Univers 00:00:00 00:00:00 Management Michael Corbin 87874.1.1 i ty of 3.104.2.7 [place] .3.196590 Medica l .8 [place] 2019-09-27 2019-09-27 Telephone East, 1.2.840.5 [id number] 755 [id number] Univers 00:00:00 00:00:00 Santiago 39605.1.1 ity of 3.104.2.7 [place] .3.722162 Medica l .8 [place] 2019-09-04 2019-09-04 Refill [place], 1.2.840.3 [id number] 497 Univers 00:00:00 00:00:00 Santiago 05303.1.1 ity of 3.104.2.7 [place] .3.603892 Medica l .8 [place] 2019-07-24 2019-07-24 Outpatient R [facility] [id number] Univers 08:30:00 08:30:00 [place] ity [facility] 2019-07-17 2019-07-17 Outpatient R [facility] [id number] Univers 10:00:00 10:00:00 SANTIAGO ity [facility] 2019-06-15 2019-06-15 Telephone East, 1.2.840.1 [id number] [id number] Univers 00:00:00 00:00:00 Santiago 69882.1.1 ity of 3.104.2.7 [place] .3.810206 Medica l .[address] [place] [address] 2019-06-13 2019-06-13 Telephone Team, [facility] 1.2.840.3 [id number] Univers 00:00:00 00:00:00 Health 30735.1.1 ity of [place] 3.104.2.7 [place] .3.536419 Medica l .8 [place] 2019-05-10 2019-05-10 Refill [place], 1.2.840.8 [id number] Univers 00:00:00 00:00:00 [place] 62210.1.1 ity of 3.104.2.7 [place] .3.641309 Medica l .8 [place] 2019-05-09 2019-05-09 Refill Ronald, 1.2.840.2 [id number] Univers 00:00:00 00:00:00 [place] 67657.1.1 ity of 3.104.2.7 [place] .3.552174 Medica l .8 [place] 2019-04-30 2019-04-30 Outpatient R RODO, [facility] [id number] Univers 10:15:00 10:33:05 GADIEL barbosa o f [facility] 2019-04-18 2019-04-18 Hand Rounder [place] Cardenas 1.2.840.1 [id number] Univers 10:00:39 10:44:31 Visit [facility] 19127.1.1 ity of 3.104.2.7 [place] .3.531905 Medica l .8 [place] 2019-04-18 2019-04-18 Outpatient R RONALD, [facility] [id number] Univers 10:00:00 10:44:31 [place] ity of [facility] 2019-04-18 2019-04-18 Office Ronald, 1.2.840.3 [id number] Univers 08:27:44 09:53:27 Visit Santiago 52642.1.1 ity of 3.104.2.7 [place] .3.233410 Medica l .8 [place] 2019-04-18 2019-04-18 Orders Doctor 1.2.840.4 [id number] Univers 00:00:00 00:00:00 Only Unassigned, 67056.1.1 ity of [place] 3.104.2.7 [place] .3.108282 Medica l .8 [place] 2019-04-11 2019-04-11 Refill Ronald, 1.2.840.8 [id number] Univers 00:00:00 00:00:00 [place] 69756.1.1 ity of 3.104.2.7 [place] .3.820218 Medica l .8 [place] 2019-04-09 2019-04-09 Refill Ronald, 1.2.840.6 [id number] Univers 00:00:00 00:00:00 [place] 21433.1.1 ity of 3.104.2.7 [place] .3.128147 Medica l .8 [place] 2019-04-03 2019-04-03 Telephone Team, [facility] 1.2.840.5 [id number] Univers 00:00:00 00:00:00 Health 28060.1.1 [place] .3.012826 Medica [place] .8 [place] 2019-03-27 2019-03-27 Telephone Self, 1.2.840.8 [id number] Univers 00:00:00 00:00:00 Gadiel 81929.1.1 ity of 3.104.2.7 [place] .3.744071 Medica l .8 [place] 2019-01-17 2019-01-17 Office Ronald, 1.2.840.7 [id number] Univers 07:37:21 10:32:51 Visit Santiago 48560.1.1 ity of 3.104.2.7 [place] .3.721493 Medica l .8 [place] 2019-01-04 2019-01-12 Office Eveline Hansen 1.2.840.8 [id number] Univers 11:19:32 11:08:05 Visit Mariela 24321.1.1 ity of 3.104.2.7 [place] .3.079825 Medica l .8 [place] 2019-01-10 2019-01-10 Telephone Ephraimcharlie, 1.2.840.2 [id number] Univers 00:00:00 00:00:00 Eladio L 81970.1.1 ity of 3.104.2.7 [place] .3.788699 Medica l .8 [place] 2018-12-18 2018-12-18 Office Geraldine, 1.2.840.5 [id number] Univers 08:48:45 09:13:43 Visit Leyda 54839.1.1 it y of 3.104.2.7 [place] .3.227454 Medica l .8 [place] 2018-10-30 2018-10-30 Telephone Ronald, 1.2.840.0 [id number] Univers 00:00:00 00:00:00 [place] 80865.1.1 ity of 3.104.2.7 [place] .3.452962 Medica l .8 [place] 2018-10-23 2018-10-23 Orders Doctor 1.2.840.5 [id number] Univers 00:00:00 00:00:00 Only Unassigned, 50342.1.1 ity of [place] 3.104.2.7 [place] .3.594058 Medica l .8 [place] 2018-10-23 2018-10-23 Nurse Slevin, 1.2.840.7 [id number] Univers 00:00:00 00:00:00 Triage Stefanie 57818.1.1 ity of 3.104.2.7 [place] .3.110925 Medica l .8 [place] 2018-10-23 2018-10-23 Telephone Self, 1.2.840.5 [id number] Univers 00:00:00 00:00:00 Gadiel 84193.1.1 ity of 3.104.2.7 [place] .3.481192 Medica l .8 [place] 2018-10-20 2018-10-20 Telephone Self, 1.2.840.3 [id number] Univers 00:00:00 00:00:00 Gadiel 88663.1.1 ity of 3.104.2.7 [place] .3.674865 Medica l .8 [place] Results Test Description Test Time Test Comments Results Result Comments Source COMP. METABOLIC PANEL (52750) 2022-05-06 22:42:55 Test Item Value Reference Range Interpretation Comme nts NA (test code = 0597048386) 137 mmol/L 135-145 K (test code = 0521998416) 3.2 mmol/L 3.5-5.0 L CL (test code = 8011696166) 100 mmol/L 98-108 CO2 TOTAL (test code = 7723710785) 23 mmol/L 23-31 AGAP (test code = 9820439633) 2-16 BUN (test code = 0667780058) 41 mg/dL 7-23 H GLUCOSE (test code = 9266697073) 98 mg/dL 70-110 CREATININE (test code = 1.55 mg/dL 0.50-1.04 H 9750611268) TOTAL BILI (test code = 0.8 mg/dL 0.1-1.6 9717720538) CALCIUM (test code = 3847479330) 8.3 mg/dL 8.6-10.6 L T PROTEIN (test code = 0808153432) 6.9 g/dL 6.3-8.2 ALBUMIN (test code = 1125209381) 3.9 g/dL 3.5-5.0 ALK PHOS (test code = 6900570171) 89 U/L 34-122 ALTv (test code = 1742-6) 101 U/L 5-35 H AST(SGOT) (test code = 1508295391) 203 U/L 13-40 H eGFR (test code = 7143520861) mL/min/1.73m2 KYLE (test code = KYLE) Association [...] tests). Lab Interpretation (test code = Abnormal 44380-1) [facility] WITH [id number] 22:33:52 Test Item Value Reference Range Interpretation [...] RDW-SD (test code = 46.3 fL 39.0-49.9 35122-5) RDW-CV (test code = 13.5 % 12.0-15.5 788-0) PLT (test code = See_Comment L [Automated 777-3) message] The sy stem which generated this result transmitted reference range : 166 - 358 10*3/ ?L. The reference r abbey was not used to interpret this result as normal/abnormal . MPV (test code = 9.5 fL 9.5-12.9 78612-0) NRBC/100 WBC (test See_Comment [Automat ed code = 3711883821) message] The system which generated this result transmitted reference range : 0.0 - 10.0 /100 WBCs. The refer ence range was not u sed to interpret th is result as normal/abnormal . NRBC x10^3 (test code See_Comment [Auto mated = 4171333996) message] The s ystem which generated this result transmitted reference range : 10*3/?L. The reference range was not used to interpret this result as normal/abnormal . GRAN MAT (NEUT) % 58.3 % (test code = 770-8) IMM GRAN % (test code 0.80 % = 5274370330) LYMPH % (test code = 28.1 % 736-9) MONO % (test code = 12.0 % 5905-5) EOS % (test code = 0.5 % 713-8) BASO % (test code = 0.3 % 706-2) GRAN MAT x10^3(ANC) 2.29 10*3/uL 1.88-7.09 (test code = 5325389461) IMM GRAN x10^3 (test 0.03 10*3/uL 0.00-0.06 code = 3189566595) LYMPH x10^3 (test code 1.10 10*3/uL 1.32-3.29 L = 731-0) MONO x10^3 (test code 0.47 10*3/uL 0.33-0.92 = 742-7) EOS x10^3 (test code = 0.03-0.39 L 711-2) BASO x10^3 (test code 0.01-0.07 = 704-7) Lab Interpretation Abnormal (test code = 47791-7) [facility] METABOLIC PANEL (NA, K, CL, CO2, GLUCOSE, BUN, CREATININE, CA)2022-04-22 21:43:42 Test Item Value Reference Range Interpretation Comments NA (test code = 142 mmol/L 135-145 2046126745) K (test code = 3.5 mmol/L 3.5-5.0 8649130976) CL (test code = 106 mmol/L 98-108 5230252392) CO2 TOTAL (test code = 26 mmol/L 23-31 3676604331) AGAP (test code = 2-16 3596486456) BUN (test code = 29 mg/dL 7-23 H 3195368004) GLUCOSE (test code = 84 mg/dL 70-110 5253491129) CREATININE (test code = 1.16 mg/dL 0.50-1.04 H 5386134162) CALCIUM (test code = 8.2 mg/dL 8.6-10.6 L 4373144836) eGFR (test code = mL/min/1.73m2 0979454409) KYLE (test code = KYLE) Association of [...] tests). Lab Interpretation Abnormal (test code = 13856-4) [facility] WITH [id number] 21:33:01 Test Item Value Reference Range Interpretation Comments WBC (test code = See_Comment [Automated 2733-2) message] The sy stem which generated this result transmitted reference range : 4.30 - 11.10 10*3/?L. The reference range was not used to interpret this result as normal/abnormal . RBC (test code = See_Comment L [Automated 112-1) message] The sy stem which generated this [...] (test code = 50.7 fL 39.0-49.9 H 90030-6) RDW-CV (test code = 14.6 % 12.0-15.5 788-0) PLT (test code = See_Comment L [Automated 777-3) message] The sy stem which generated this result transmitted reference range : 166 - 358 10*3/ ?L. The reference r abbey was not used to interpret this result as normal/abnormal . MPV (test code = 8.8 fL 9.5-12.9 L 28191-8) NRBC/100 WBC (test See_Comment [Automat ed code = 0078261308) message] The system which generated this result transmitted reference range : 0.0 - 10.0 /100 WBCs. The refer ence range was not u sed to interpret th is result as normal/abnormal . NRBC x10^3 (test code See_Comment [Auto mated = 7655145210) message] The s ystem which generated this result transmitted reference range : 10*3/?L. The reference range was not used to interpret this result as normal/abnormal . GRAN MAT (NEUT) % 70.9 % (test code = 770-8) IMM GRAN % (test code 0.50 % = 7926258620) LYMPH % (test code = 17.4 % 736-9) MONO % (test code = 9.0 % 5905-5) EOS % (test code = 1.7 % 713-8) BASO % (test code = 0.5 % 706-2) GRAN MAT x10^3(ANC) 4.60 10*3/uL 1.88-7.09 (test code = 4170329381) IMM GRAN x10^3 (test 0.03 10*3/uL 0.00-0.06 code = 7937024657) LYMPH x10^3 (test code 1.13 10*3/uL 1.32-3.29 L = 731-0) MONO x10^3 (test code 0.58 10*3/uL 0.33-0.92 = 742-7) EOS x10^3 (test code = 0.11 10*3/uL 0.03-0.39 711-2) BASO x10^3 (test code 0.03 10*3/uL 0.01-0.07 = 704-7) Lab Interpretation Abnormal (test code = 79966-4) [facility] CULTURE [id number] 06:01:07 Test Item Value Reference Range Interpretation Comments Blood Culture-Aerobic No organisms No growth Previo us (test code = 70440-5) isolated prelim inary verified result was Culture [...] Culture-Anaerobic isolated preliminar y (test code = 17867-5) verifi ed result was Culture In Progress [...] CDT Lab Interpretation Normal (test code = 00852-0) [facility] CULTURE [id number] 06:01:07 Test Item Value Reference Range Interpretation Comments Blood Culture-Aerobic No organisms No growth Previo us (test code = 23394-4) isolated prelim inary verified result was Culture [...] Culture-Anaerobic isolated preliminar y (test code = 77451-1) verifi ed result was Culture In Progress [...] CDT Lab Interpretation Normal (test code = 72776-4) [facility] [id number] 06:01:07 Test Item Value Reference Range Interpretation Comments Blood Culture-Aerobic No organisms No growth Previo us (test code = 77337-2) isolated prelim inary verified result was Culture [...] Culture-Anaerobic isolated preliminar y (test code = 42223-7) verifi ed result was Culture In Progress [...] CDT Lab Interpretation Normal (test code = 83443-3) [facility] [id number] 10:49:10 Test Item Value Reference Range Interpretation Comments NT-proBNP (test code 2660 pg/mL See_Comment H [Autom ated = 1856572209) message] The system which generated this result transmitted reference range : <=125. The reference range was not used to interpret this result as normal/abnormal . KYLE (test code = KYLE) Biotin has been reported to cause a negative bias, interpret results relative to patient's use of biotin. Lab Interpretation Abnormal (test code = 72200-7) [facility] [id number] 10:49:10 Test Item Value Reference Range Interpretation Comments NT-proBNP (test code 2660 pg/mL See_Comment H [Autom ated = 7683008937) message] The system which generated this result transmitted reference range : <=125. The reference range was not used to interpret this result as normal/abnormal . KYLE (test code = KYLE) Biotin has been reported to cause a negative bias, interpret results relative to patient's use of biotin. Lab Interpretation Abnormal (test code = 53086-2) [facility] (NA, K, CL, CO2, GLUCOSE, BUN, CREATININE, CA)2022-02-15 10:44:07 Test Item Value Reference Range Interpretation Comments NA (test code = 134 mmol/L 135-145 L 4323218438) K (test code = 3.2 mmol/L 3.5-5 L 5550664111) CL (test code = 98 mmol/L 98-108 6322027934) CO2 TOTAL (test code = 27 mmol/L 23-31 7797581434) AGAP (test code = 2-16 3340062495) BUN (test code = 19 mg/dL 7-23 7444945989) GLUCOSE (test code = 102 mg/dL 70-110 2713509138) CREATININE (test code = 0.95 mg/dL 0.5-1.04 3180735785) CALCIUM (test code = 8.5 mg/dL 8.6-10.6 L 1841687683) eGFR (test code = mL/min/1.73m2 1364158048) KYLE (test code = KYLE) Association of [...] tests). Lab Interpretation Abnormal (test code = 99858-0) [facility]2022-09-26 10:44:07 Test Item Value Reference Range Interpretation Comments MAGNESIUM (test code = 3592244578) 1.8 mg/dL 1.7-2.4 Lab Interpretation (test code = Normal 31379-0) [facility]2022-09-26 10:44:07 Test Item Value Reference Range Interpretation Comments MAGNESIUM (test code = 6545902705) 1.8 mg/dL 1.7-2.4 Lab Interpretation (test code = Normal 98657-1) [facility] (NA, K, CL, CO2, GLUCOSE, BUN, CREATININE, CA)2022-02-15 10:44:07 Test Item Value Reference Range Interpretation Comments NA (test code = 134 mmol/L 135-145 L 1240413321) K (test code = 3.2 mmol/L 3.5-5.0 L 7105851733) CL (test code = 98 mmol/L 98-108 0668337172) CO2 TOTAL (test code = 27 mmol/L 23-31 5925529103) AGAP (test code = 2-16 7736653121) BUN (test code = 19 mg/dL 7-23 3176543953) GLUCOSE (test code = 102 mg/dL 70-110 0811576130) CREATININE (test code = 0.95 mg/dL 0.50-1.04 0136194795) CALCIUM (test code = 8.5 mg/dL 8.6-10.6 L 6430842047) eGFR (test code = mL/min/1.73m2 6902266564) KYLE (test code = KYLE) Association of [...] tests). Lab Interpretation Abnormal (test code = 37266-1) [facility] WITH [id number] 10:12:06 Test Item Value Reference Range Interpretation [...] RDW-SD (test code = 47.8 fL 39-49.9 77188-0) RDW-CV (test code = 15.2 % 12-15.5 788-0) PLT (test code = See_Comment L [Automated 777-3) message] The sy stem which generated this result transmitted reference range : 166 - 358 10*3/ ?L. The reference r abbey was not used to interpret this result as normal/abnormal . MPV (test code = 8.9 fL 9.5-12.9 L 09868-4) NRBC/100 WBC (test See_Comment [Automat ed code = 4006788811) message] The system which generated this result transmitted reference range : 0.0 - 10.0 /100 WBCs. The refer ence range was not u sed to interpret th is result as normal/abnormal . NRBC x10^3 (test code See_Comment [Auto mated = 4241330723) message] The s ystem which generated this result transmitted reference range : 10*3/?L. The reference range was not used to interpret this result as normal/abnormal . GRAN MAT (NEUT) % 65.9 % (test code = 770-8) IMM GRAN % (test code 0.30 % = 7023553783) LYMPH % (test code = 21.0 % 736-9) MONO % (test code = 10.1 % 5905-5) EOS % (test code = 2.4 % 713-8) BASO % (test code = 0.3 % 706-2) GRAN MAT x10^3(ANC) 2.49 10*3/uL 1.88-7.09 (test code = 2145949464) IMM GRAN x10^3 (test 0-0.06 code = 1519447943) LYMPH x10^3 (test code 0.79 10*3/uL 1.32-3.29 L = 731-0) MONO x10^3 (test code 0.38 10*3/uL 0.33-0.92 = 742-7) EOS x10^3 (test code = 0.09 10*3/uL 0.03-0.39 711-2) BASO x10^3 (test code 0.01-0.07 = 704-7) Lab Interpretation Abnormal (test code = 59793-0) [facility] WITH [id number] 10:12:06 Test Item Value Reference Range Interpretation [...] RDW-SD (test code = 47.8 fL 39.0-49.9 41278-6) RDW-CV (test code = 15.2 % 12.0-15.5 788-0) PLT (test code = See_Comment L [Automated 777-3) message] The sy stem which generated this result transmitted reference range : 166 - 358 10*3/ ?L. The reference r abbey was not used to interpret this result as normal/abnormal . MPV (test code = 8.9 fL 9.5-12.9 L 32084-1) NRBC/100 WBC (test See_Comment [Automat ed code = 7470832003) message] The system which generated this result transmitted reference range : 0.0 - 10.0 /100 WBCs. The refer ence range was not u sed to interpret th is result as normal/abnormal . NRBC x10^3 (test code See_Comment [Auto mated = 4098645271) message] The s ystem which generated this result transmitted reference range : 10*3/?L. The reference range was not used to interpret this result as normal/abnormal . GRAN MAT (NEUT) % 65.9 % (test code = 770-8) IMM GRAN % (test code 0.30 % = 7154737636) LYMPH % (test code = 21.0 % 736-9) MONO % (test code = 10.1 % 5905-5) EOS % (test code = 2.4 % 713-8) BASO % (test code = 0.3 % 706-2) GRAN MAT x10^3(ANC) 2.49 10*3/uL 1.88-7.09 (test code = 9649504232) IMM GRAN x10^3 (test 0.00-0.06 code = 1317061638) LYMPH x10^3 (test code 0.79 10*3/uL 1.32-3.29 L = 731-0) MONO x10^3 (test code 0.38 10*3/uL 0.33-0.92 = 742-7) EOS x10^3 (test code = 0.09 10*3/uL 0.03-0.39 711-2) BASO x10^3 (test code 0.01-0.07 = 704-7) Lab Interpretation Abnormal (test code = 81776-6) [facility] WITH [id number] 11:18:28 Test Item Value Reference Range Interpretation [...] RDW-SD (test code = 49.5 fL 39-49.9 33652-6) RDW-CV (test code = 15.5 % 12-15.5 788-0) PLT (test code = See_Comment L [Automated 777-3) message] The sy stem which generated this result transmitted reference range : 166 - 358 10*3/ ?L. The reference r abbey was not used to interpret this result as normal/abnormal . MPV (test code = 11.4 fL 9.5-12.9 95022-5) IPF % (test code = 8.7 % 1.3-7.7 H Platelet count 6781510457) measured by fluorescence method. NRBC/100 WBC (test See_Comment [Automat ed code = 8896303252) message] The system which generated this result transmitted reference range : 0.0 - 10.0 /100 WBCs. The refer ence range was not u sed to interpret th is result as normal/abnormal . NRBC x10^3 (test code See_Comment [Auto mated = 7446417412) message] The s ystem which generated this result transmitted reference range : 10*3/?L. The reference range was not used to interpret this result as normal/abnormal . GRAN MAT (NEUT) % 62.0 % (test code = 770-8) IMM GRAN % (test code 0.80 % = 4145801312) LYMPH % (test code = 22.2 % 736-9) MONO % (test code = 9.6 % 5905-5) EOS % (test code = 5.1 % 713-8) BASO % (test code = 0.3 % 706-2) GRAN MAT x10^3(ANC) 2.21 10*3/uL 1.88-7.09 (test code = 5459619246) IMM GRAN x10^3 (test 0.03 10*3/uL 0-0.06 code = 7368466503) LYMPH x10^3 (test code 0.79 10*3/uL 1.32-3.29 L = 731-0) MONO x10^3 (test code 0.34 10*3/uL 0.33-0.92 = 742-7) EOS x10^3 (test code = 0.18 10*3/uL 0.03-0.39 711-2) BASO x10^3 (test code 0.01-0.07 = 704-7) POLYCHROMASIA (test 2+ See_Comment [Automa arpit code = 54437-0) message] The system which generated this result [...] . Lab Interpretation Abnormal (test code = 20777-4) [facility] METABOLIC PANEL (NA, K, CL, CO2, GLUCOSE, BUN, CREATININE, CA)2022-02-13 10:39:07 Test Item Value Reference Range Interpretation Comments NA (test code = 136 mmol/L 135-145 0196470787) K (test code = 4.1 mmol/L 3.5-5 2329837174) CL (test code = 102 mmol/L 98-108 8383883910) CO2 TOTAL (test code = 27 mmol/L 23-31 9962763182) AGAP (test code = 2-16 4595700334) BUN (test code = 22 mg/dL 7-23 3765089422) GLUCOSE (test code = 94 mg/dL 70-110 6993775854) CREATININE (test code = 0.94 mg/dL 0.5-1.04 8535640224) CALCIUM (test code = 8.1 mg/dL 8.6-10.6 L 8060725619) eGFR (test code = mL/min/1.73m2 6451262934) KYLE (test code = KYLE) Association of [...] tests). Lab Interpretation Abnormal (test code = 53252-7) [facility] 01:50:10 Test Item Value Reference Range Interpretation Comments Height (test code = in 1411007254) Weight (test code = lbs 4048562991) Systolic BP (test code mmHg = 2095474240) Diastolic BP (test code mmHg = 6400158939) Heart Rate (test code = bpm 5738469525) BSA (test code = 1.85 m2 6471258068) IVS (test code = 1.22 cm 4803174568) Interventricular Septum 1.22 cm Diastolic Thickness by 2D (test code = 8029573) LVIDD (test code = 5.00 cm 1730171433) Left Ventricular End 117.9 mL Diastolic Volume by Teichholz Method (test code = 0903878) LVPWD (test code = 1.22 cm 6011177620) PW (test code = 1.22 cm 0.6-1.9 1539763585) EF(Teich) (test code = 74.60 % 2435707858) LVIDS (test code = 2.80 cm 3027995203) Left Ventricular End 29.9 mL Systolic Volume by Teichholz Method (test code = 4669435) FS (test code = 44 % 5825014234) EF - 2D (test code = 74.60 % 61877035) LVOT diameter (test 2.16 cm code = 7186820981) LVOT area (test code = 3.70 cm2 2538508908) Ao root diam (test code 3.40 cm = 1043461297) Aortic root (test code 3.4 cm = 2424908975) Ao root annulus (test 3.4 cm code = 3974403389) LA size (test code = 3.4 cm 8504739054) TR Peak Spencer (test code 330.0 cm/s = 1315050433) Triscuspid Valve mmHg Regurgitation Peak Gradient (test code = 5520466809) PV REGURGITATION PEAK mmHg GRADIENT (test code = 8282928872) PI dec slope (test code 137.20 cm/s2 = 5111858672) LAV(MOD-sp4) (test code 102.90 mL = 1989970809) MV Peak E Spencer (test 84.1 cm/s code = 0847194626) MV Peak A Spencer (test 40.1 cm/s code = 0245207163) E/A ratio (test code = ratio 6280648536) MV valve area p 1/2 3.70 cm2 method (test code = 5334614364) MV dec slope (test code 413.00 cm/s2 = 4031039623) MV P1/2t max spencer (test 83.70 cm/s code = 7585183783) MV Prop V (test code = 41.80 cm/s 2465453436) Tapse (test code = 1.83 cm 0595610300) LVOT stroke volume 96.90 cm3 (test code = 1715584400) LVOT peak spencer (test 125.5 cm/s code = 9863233026) LVOT mn grad (test code mmHg = 1141699997) AV LVOT peak gradient mmHg (test code = 1875068245) LVOT peak VTI (test 26.4 cm code = 2297682066) LV V1 mean (test code = 78.10 cm/s 8352072909) Aortic valve mean 103.7 cm/s velocity (test code = 3441538498) Ao peak spencer (test code 165.6 cm/s = 4869238059) Ao VTI (test code = 37.2 cm 5332080752) AV area by cont VTI 2.6 cm2 (test code = 5097858336) AV area peak spencer (test 2.8 cm2 code = 8119834703) Ao max PG (test code = 11.00 mm[Hg] 7658100768) AV peak gradient (test mmHg code = 6619203911) AV valve area (test 2.60 cm2 code = 2599577042) AV mean gradient (test mmHg code = 8198138157) LA Volume Index (BP) 55.2 mL/m2 (test code = 4299070024) LA volume (BP) (test 102.1 mL code = 5090968962) LAV(MOD-sp2) (test code 86.10 mL = 1150482789) A2C EF (test code = 61.20 % 4756883780) EF(sp2-el) (test code = 61.60 % 9845519118) SV(MOD-sp2) (test code 47.10 mL = 0580806642) LV Diastolic Volume 70.7 mL (BP) (test code = 5101631961) A4C EF (test code = 53.00 % 4523922112) EF(MOD-bp) (test code = 56.70 % 8077968304) EF(sp4-el) (test code = 53.90 % 3293003715) LV Systolic Volume (BP) 30.6 mL (test code = 3538709031) SV(MOD-bp) (test code = 40.10 mL 0690497013) SV(MOD-sp4) (test code 32.40 mL = 3441014328) SV(sp4-el) (test code = 33.10 mL 0545525461) EF (test code = 2227901564) Left Ventricular Stroke 40.1 mL Volume by 2-D Biplane-MOD (test code = 8365615) LV Diastolic Volume 38.2 mL/m2 Index (BP) (test code = 6242519719) LV Systolic Volume 16.5 mL/m2 Index (BP) (test code = 3966771545) Radiology Study observation (narrative) (test code = 93711-5) KYLE (test code = KYLE) ?Left?Ventricle: Left ventricle size is normal. Moderately increased wall thickness. There is moderate concentric hypertrophy. Normal wall motion. Normal systolic function with a visually estimated EF of 55 - 60%. EF by 2D Rashede biplane is 57%. There is grade 2 [...] 1.00The left ventricular wall motion is normal. [facility] [id number] 05:45:01 Test Item Value Reference Interpretation Comments Range TROPONIN I (test See_Comment [Automated code = 5099744119) message] The system which generated this result [...] biotin. Lab Interpretation Normal (test code = 19556-0) [facility] [id number] 05:41:40 Test Item Value Reference Range Interpretation Comments NT-proBNP (test code 4250 pg/mL See_Comment H [Autom ated = 1640018736) message] The system which generated this result transmitted reference range : <=125. The reference range was not used to interpret this result as normal/abnormal . KYLE (test code = KYLE) Biotin has been reported to cause a negative bias, interpret results relative to patient's use of biotin. Lab Interpretation Abnormal (test code = 21158-4) [facility] THRM[facility] [id number] 05:35:21 Test Item Value Reference Range Interpretation Comments APTT Patient (test See_Comment [Automat ed code = 3173-2) message] The system which generated this result transmitted reference range : 23 - 38 Seconds . The reference range was not used to interpr et this result as normal/abnormal . KYLE (test code = KYLE) The [facility] patient population mean normal value for aPTT is 30 seconds. Lab Interpretation Normal (test code = 94288-4) [facility] [id number] 05:35:21 Test Item Value Reference Range Interpretation Comments APTT Patient (test See_Comment [Automat ed code = 3173-2) message] The system which generated this result transmitted reference range : 23 - 38 Seconds . The reference range was not used to interpr et this result as normal/abnormal . KYLE (test code = KYLE) The [facility] patient population mean normal value for aPTT is 30 seconds. Lab Interpretation Normal (test code = 82610-0) [facility] CenterPROTHROMBIN TIME / [id number] 05:33:21 Test Item Value Reference Range Interpretation [...] tions. Lab Interpretation (test Normal code = 33997-6) [facility]OL[facility] PAN[facility] ([id number])2022-02-11 05:33:21 Test Item Value Reference Range Interpretation Comments NA (test code = 137 mmol/L 135-145 5197038579) K (test code = 4.3 mmol/L 3.5-5 9520520489) CL (test code = 103 mmol/L 98-108 7798909501) CO2 TOTAL (test code = 25 mmol/L 23-31 5556379162) AGAP (test code = 2-16 3978043226) BUN (test code = 19 mg/dL 7-23 8320998662) GLUCOSE (test code = 120 mg/dL 70-110 H 7965305468) CREATININE (test code = 1.15 mg/dL 0.5-1.04 H 4200747769) TOTAL BILI (test code = 0.9 mg/dL 0.1-1.1 2711279264) CALCIUM (test code = 8.9 mg/dL 8.6-10.6 7184197205) T PROTEIN (test code = 6.6 g/dL 6.3-8.2 0277858633) ALBUMIN (test code = 4.0 g/dL 3.5-5 8983900545) ALK PHOS (test code = 73 U/L 34-122 6224301705) ALTv (test code = 18 U/L 5-35 1742-6) AST(SGOT) (test code = 31 U/L 13-40 7674777745) eGFR (test code = mL/min/1.73m2 7756970405) KYLE (test code = KYLE) Association of [...] tests). Lab Interpretation Abnormal (test code = 08085-4) [facility] METABOLIC PANEL ([id number])2022-02-11 05:33:21 Test Item Value Reference Range Interpretation Comments NA (test code = 137 mmol/L 135-145 6786011957) K (test code = 4.3 mmol/L 3.5-5.0 8308313138) CL (test code = 103 mmol/L 98-108 1282226685) CO2 TOTAL (test code = 25 mmol/L 23-31 8320869397) AGAP (test code = 2-16 3897512553) BUN (test code = 19 mg/dL 7-23 2130403086) GLUCOSE (test code = 120 mg/dL 70-110 H 6092954301) CREATININE (test code = 1.15 mg/dL 0.50-1.04 H 5651644990) TOTAL BILI (test code = 0.9 mg/dL 0.1-1.6 3947941060) CALCIUM (test code = 8.9 mg/dL 8.6-10.6 1860749636) T PROTEIN (test code = 6.6 g/dL 6.3-8.2 6100138120) ALBUMIN (test code = 4.0 g/dL 3.5-5.0 6741695033) ALK PHOS (test code = 73 U/L 34-122 5711689670) ALTv (test code = 18 U/L 5-35 1742-6) AST(SGOT) (test code = 31 U/L 13-40 5580484877) eGFR (test code = mL/min/1.73m2 0643261436) KYLE (test code = KYLE) Association of [...] tests). Lab Interpretation Abnormal (test code = 25233-7) [facility] CenterPROTHROMBIN [facility] / [id number] 05:33:21 Test Item Value Reference Range Interpretation [...] tions. Lab Interpretation (test Normal code = 65367-9) [facility] WITH [id number] 05:14:37 Test Item Value Reference Range Interpretation Comments WBC (test code = See_Comment [Automated 4702-2) message] The sy stem which generated this [...] RDW-SD (test code = 47.9 fL 39-49.9 00599-6) RDW-CV (test code = 14.9 % 12-15.5 788-0) PLT (test code = See_Comment L [Automated 777-3) message] The sy stem which generated this result transmitted reference range : 166 - 358 10*3/ ?L. The reference r abbey was not used to interpret this result as normal/abnormal . MPV (test code = 9.1 fL 9.5-12.9 L 29130-7) NRBC/100 WBC (test See_Comment [Automat ed code = 3838507030) message] The system which generated this result transmitted reference range : 0.0 - 10.0 /100 WBCs. The refer ence range was not u sed to interpret th is result as normal/abnormal . NRBC x10^3 (test code See_Comment [Auto mated = 8806034366) message] The s ystem which generated this result transmitted reference range : 10*3/?L. The reference range was not used to interpret this result as normal/abnormal . GRAN MAT (NEUT) % 78.5 % (test code = 770-8) IMM GRAN % (test code 0.20 % = [id number]) LYMPH % (test code = 11.6 % 736-9) MONO % (test code = 8.4 % 5905-5) EOS % (test code = 1.1 % 713-8) BASO % (test code = 0.2 % 706-2) GRAN MAT x10^3(ANC) 3.45 10*3/uL 1.88-7.09 (test code = [id number]) IMM GRAN x10^3 (test 0-0.06 code = [id number]) LYMPH x10^3 (test code 0.51 10*3/uL 1.32-3.29 L = 731-0) MONO x10^3 (test code 0.37 10*3/uL 0.33-0.92 = 742-7) EOS x10^3 (test code = 0.05 10*3/uL 0.03-0.39 711-2) BASO x10^3 (test code 0.01-0.07 = 704-7) Lab Interpretation Abnormal (test code = 14844-9) [facility] Coronavirus 2019 [id number] 18:08:00 Test Item Value Reference Range Interpretation [...] det ection of nucleic acids f rom gudBYHH-BtC-6 v irus and diagnosis of SA RS-CoV-2 virusinfection. It is an Emergency Use Authorization ( EUA) testauthorized by the U.S. FDA. BASIC METABOLIC [id number] 09:37:00 Test Item Value Reference Range Interpretation [...] = 9.0 mg/dL 8.0-10.5 N CA) PROTHROMBIN [id number] 09:32:00 Test Item Value Reference Range Interpretation [...] (to prevent recurrent infar ct). 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[facility] - XR CHEST 1 [id number] 00:00:00 [facility] : 1955 Sex: F FAX: RobinJasmeetUrmilalinda Danielanh Kristen [phone] [place]: St: ADM FAX: Mike Scales MD [phone] FAX: Bahman Chopra [phone] Name: MARJAN FLEMING [facility] : 1955 Age/S: 66/F [address] [place] [address] Unit #: [id number] Loc: [place] [address] Phys: Bahman Chopra [facility] Acct: [id number] Dis Date: Status: ADM IN PHONE #: [phone] Exam Date: 06/17/2021 1320 FAX #: [phone] Reason: WATCHMAN EXAMS: CPT CODE: [id number] XR CHEST 1 V 22339 PROCEDURE INFORMATION: Exam: XR Chest Exam date [...] Chopra Technologist: RT Taylor(R) Trnscrd Date/Time/By: 06/17/2021 (4177) : By: Susanna Orig Print D/T: S: 06/17/2021 (9719) PAGE 1 Signed ReportCOVID 19 Asymptomatic IH [...] high or waivedcomplexit y tests. BASIC METABOLIC [id number] 11:37:00 Test Item Value Reference Range Interpretation [...] code = 9.0 mg/dL 8.0-10.5 N CA) QVXINFLYQB5981-55-12 11:37:00 Test Item Value Reference Range Interpretation Comments PREALBUMIN (test code = PREALB) 24.3 mg/dL 16.0-40.0 N PROTHROMBIN [id number] 11:03:00 Test Item Value Reference Range Interpretation [...] (to prevent recurrent infar ct). CBC W/AUTO HGZT0103-51-26 10:59:00 Test Item Value Reference Range Interpretation [...] 3/uL 0.0-0.1 N NRBC#) - CHEST 2 [id number] 00:00:00 [facility] : 1955 Sex: F FAX: Carmenza Kelly DO [phone] [place]: St: PRE FAX: Mike Scales MD [phone] Name: MARJAN FLEMING : 1955 Age/S: 66/F [address] [place] [address] Unit #: [id number] Loc: [place] [address] Phys: Mike Lund MD Acct: [id number] Dis Date: Status: PRE SDC PHONE #: [phone] Exam Date: 06/16/2021 1120 FAX #: [phone] Reason: PREOP EXAMS: CPT CODE: [id number] XR CHEST 2 V 79089 PROCEDURE INFORMATION: Exam: XR Chest Exam date [...] Technologist: Danielle Nix, RT(R) Trnscrd Date/Time/By: 06/16/2021 (3369) : By: [email or web address] Orig Print D/T: S: 06/16/2021 (8643) PAGE 1 Signed ReportGastrointestinal wbxqd9895-91-01 04:35:05 Test Item Value Reference Interpretation Comments [...] Rotavirus PCR (test Not Detected code = 7920601) Salmonella PCR (test Not Detected code = [...] code = 7124) [facility] lfuluqb6281-54-13 19:30:47 Test Item Value Reference Range Interpretation Comments Case number (test [id number] code = 4505990) Surgical pathology See link below for PDF report (test code = Lab Report 2255) Result status (test This is Supplemental code = 8362525) Report for [id number] [facility]PjlmyhupBXKHEHKAGG4931-32-75 16:31:00 Test Item Value Reference Range Interpretation Comments POC Activated Clotting Time (test code 153 s = POC Activated Clotting Time) [facility] CenterNowryxwDYGSDLKHCQ6436-74-13 16:31:00 Test Item Value Reference Range Interpretation Comments POC Activated Clotting Time (test code 153 s = POC Activated Clotting Time) [facility] CenterRnariyhOPHXCILGYD7557-03-60 16:31:00 Test Item Value Reference Range Interpretation Comments POC Activated Clotting Time (test code 153 s = POC Activated Clotting Time) [facility] CenterQvfkwhzFEYVBXRYDI3679-30-65 16:31:00 Test Item Value Reference Range Interpretation Comments POC Activated Clotting Time (test code 153 s = POC Activated Clotting Time) [facility] CenterYrovideJLYALBMAOI3719-20-00 16:31:00 Test Item Value Reference Range Interpretation Comments POC Activated Clotting Time (test code 153 s = POC Activated Clotting Time) [facility] CenterClhsqegFQKQRDXIHS5138-95-51 16:31:00 Test Item Value Reference Range Interpretation Comments POC Activated Clotting Time (test code 153 s = POC Activated Clotting Time) [facility] CenterUlutjfyZVVHOFWIWW7277-59-35 16:31:00 Test Item Value Reference Range Interpretation Comments POC Activated Clotting Time (test code 153 s = POC Activated Clotting Time) [facility] CenterDuvurpoABQFPHRHXO4564-22-31 14:37:00 Test Item Value Reference Range Interpretation Comments POC Activated Clotting Time (test code 454 s = POC Activated Clotting Time) [facility] CenterBgwwupySDNFPIMAOR8271-50-86 14:37:00 Test Item Value Reference Range Interpretation Comments POC Activated Clotting Time (test code 454 s = POC Activated Clotting Time) [facility] CenterBilxqbjXKCLHBVPPM2625-40-97 14:37:00 Test Item Value Reference Range Interpretation Comments POC Activated Clotting Time (test code 454 s = POC Activated Clotting Time) [facility] CenterFypavqiIFDLVKYIXF6831-97-38 14:37:00 Test Item Value Reference Range Interpretation Comments POC Activated Clotting Time (test code 454 s = POC Activated Clotting Time) [facility] CenterGfdfwviSDTXFAIFVO6944-64-16 14:37:00 Test Item Value Reference Range Interpretation Comments POC Activated Clotting Time (test code 454 s = POC Activated Clotting Time) [facility] CenterGujfdybCSMHMLZRPT9892-82-13 14:37:00 Test Item Value Reference Range Interpretation Comments POC Activated Clotting Time (test code 454 s = POC Activated Clotting Time) [facility] CenterXvczzjgASEELXAWIT5886-97-26 14:37:00 Test Item Value Reference Range Interpretation Comments POC Activated Clotting Time (test code 454 s = POC Activated Clotting Time) [facility] CenterPynscmiPCGIMLTLQE2133-60-39 14:13:00 Test Item Value Reference Range Interpretation Comments POC Activated Clotting Time (test code 354 s = POC Activated Clotting Time) [place] 978431-04-09 14:13:00 Test Item Value Reference Range Interpretation Comments POC Activated Clotting Time (test code 354 s = POC Activated Clotting Time) [facility] CenterZmudbytICGFEBVFIY1297-34-19 14:13:00 Test Item Value Reference Range Interpretation Comments POC Activated Clotting Time (test code 354 s = POC Activated Clotting Time) [facility] AreaUvroelcYPXUWYOIFV7641-64-95 14:13:00 Test Item Value Reference Range Interpretation Comments POC Activated Clotting Time (test code 354 s = POC Activated Clotting Time) [facility]JyhtxcuRGOEMLCEZO4697-29-79 14:13:00 Test Item Value Reference Range Interpretation Comments POC Activated Clotting Time (test code 354 s = POC Activated Clotting Time) [facility]OaqftdvDKLCAIVDNJ4627-13-98 14:13:00 Test Item Value Reference Range Interpretation Comments POC Activated Clotting Time (test code 354 s = POC Activated Clotting Time) [facility] AllenCuchqhqDFWMHMDTCO5773-90-86 14:13:00 Test Item Value Reference Range Interpretation Comments POC Activated Clotting Time (test code 354 s = POC Activated Clotting Time) [facility] HWCIERL6461-07-24 10:37:00Negative (08/29/20 5:37 AM) [facility] HermannCHEM MMEKD8498-17-17 10:37:11749Cyjhraqn HermannCHEM PANEL 2020-08-29 10:37:0028[facility] HermannCHEM ASIWN0108-91-80 10:37:001.01[facility] HermannCHEM CUQDZ0763-26-44 10:37:24471Qlbvtflf HermannCHEM YDMVU5689-76-47 10:37:003.8[facility] HermannCHEM MTTFD5855-38-20 10:37:73192Rmrjckxf HermannCHEM CEWGE5782-72-92 10:37:0028[facility] HermannCHEM DTHHI8785-08-90 10:37:009.8 [facility] HermannCHEM DXZCB9600-62-26 10:37:0011.8[facility] HermannCHEM PANEL 2020-08-29 10:37:0059[facility] HermannCHEM AXRSB0887-15-66 10:37:002.9[facility] YyiktsnKYMCCXNPLC4139-39-28 10:37:006.8[facility] RoqrfasOQGLJQAZXK7831-62-23 10:37:004.47[facility] ZblgyxvZXDXXJFGZP2122-57-13 10:37:0010.6[facility] SCDCAIDFPO1123-54-42 10:37:0034.0[facility] RvturhdDSCFYCNLQJ6454-41-96 10:37:00 76.1[facility] BudoqgjIMGNTCSCTP6058-82-59 10:37:00 Test Item Value Reference Range Interpretation Comments MCH (test code = MCH) 23.8 pg 27.0-31.0 [facility] RpknbhiVMLKZWRBGN1249-48-32 10:37:0031.3[facility] HermannHEMATOLOGY 2020-08-29 10:37:0018.2[facility] EteojtcKCYEBHJLTL5979-23-97 10:37:99526Dzfogwof VkobbqtAZRIDZIEJH3362-76-63 10:37:007.5[facility] IcxxkskTRUTDYBKLS9930-79-51 10:37:00 Test Item Value Reference Range Interpretation Comments PT (test code = PT) 12.8 s 12.0-14.7 [facility] PzxgavpIMBPVHCHKU6995-80-85 10:37:00 Test Item Value Reference Range Interpretation Comments INR (test code = INR) 0.97 1 0.85-1.17 [facility] RpdrqcxPHSPZWYUCV1429-47-67 10:37:00 Test Item Value Reference Range Interpretation Comments PTT (test code = PTT) 25.0 s 22.9-35.8 [facility] CintyxiJGCQEYWXIB3473-42-65 10:37:0070.5[facility] HermannHEMATOLOGY 2020-08-29 10:37:0018.8[facility] ZxjaanyBWRKMEMEDB1972-75-51 10:37:009.5[facility] YdpwjjsXKCBLRTCLQ2573-85-63 10:37:000.9[facility] WxwcmdgUUAMBYNDRW5284-40-63 10:37:000.3[facility] RjpaxpbBDPENJZTQW6849-99-91 10:37:004.8[facility] ITPVOEXMQW9456-43-44 10:37:001.3[facility] XuineqdGMIKZXPCYH7802-78-47 10:37:000.6 [facility] QyeisgoRUULUIWRSA3992-02-01 10:37:000.1[facility] HermannHEMATOLOGY 2020-08-29 10:37:001+ *ABN*(08/29/20 5:37 AM)[facility] ZnzplxnSHKADGSJWY9422-14-80 10:37:00Not Detected (08/29/20 5:37 AM)[facility] HermannBLOOD BANK RESULTS 2020-08-29 10:37:00Negative (08/29/20 5:37 AM)[facility] HermannCHEM QEXUS8212-67-89 10:37:54743Lzjcysmi HermannCHEM BIFZC4644-65-78 10:37:0028[facility] HermannCHEM LLMFD1921-22-76 10:37:001.01[facility] HermannCHEM WILWK4451-05-58 10:37:01793 [facility] HermannCHEM RGMIG8715-85-22 10:37:003.8[facility] HermannCHEM PANEL 2020-08-29 10:37:59132Gowdkihp HermannCHEM IOQNH4697-37-15 10:37:0028[facility] HermannCHEM EWCFM5709-04-89 10:37:009.8[facility] HermannCHEM MAPRT5722-05-38 10:37:0011.8[facility] HermannCHEM BLTKY1272-15-21 10:37:0059[facility] HermannCHEM ITPYV3957-22-56 10:37:002.9[facility] JudnldwGCLPRBWKYX1269-78-91 10:37:006.8 [facility] SrzcjwgLTHLMASYVA6772-38-97 10:37:004.47[facility] HermannHEMATOLOGY 2020-08-29 10:37:0010.6[facility] HqeyjtfNOVYNEFNVM0718-42-57 10:37:0034.0[facility] BgpovbwXOZLHWROWQ1965-71-97 10:37:0076.1[facility] QojnlvgLFSGVNXXJW7812-60-87 10:37:00 Test Item Value Reference Range Interpretation Comments MCH (test code = MCH) 23.8 pg 27.0-31.0 [facility] OnojwtpTWBQWGHIAA2724-32-96 10:37:0031.3[facility] HermannHEMATOLOGY 2020-08-29 10:37:0018.2[facility] HdbtstiVYLSGRMUAC8097-61-20 10:37:50317Onpfdtic CgvtsjnAPXKENSXII9110-04-86 10:37:007.5[facility] QlvtupvTLBORVNAEZ7626-74-13 10:37:00 Test Item Value Reference Range Interpretation Comments PT (test code = PT) 12.8 s 12.0-14.7 [facility] SbmkgqzHGQSHEIZWR2803-50-28 10:37:00 Test Item Value Reference Range Interpretation Comments INR (test code = INR) 0.97 1 0.85-1.17 [facility] NwcwggjSPWRUYWJWZ2652-17-36 10:37:00 Test Item Value Reference Range Interpretation Comments PTT (test code = PTT) 25.0 s 22.9-35.8 [facility] SgtkrxgGKBEIZYSRL1560-05-56 10:37:0070.5[facility] HermannHEMATOLOGY 2020-08-29 10:37:0018.8[facility] MwzqidqSORIYHJHUD7143-36-33 10:37:009.5[facility] BjdrarkJRHTHYDBPH8422-36-13 10:37:000.9[facility] GnvyrpaIRVOYBFJDX3840-47-06 10:37:000.3[facility] PmuryxnBGGIQXJYID2877-40-85 10:37:004.8[facility] XRDFYSGTLZ0640-75-54 10:37:001.3[facility] QstmzzyGUUNUDJEML4516-74-88 10:37:000.6 [facility] KwrccgpVXSVDIFEPT8826-41-61 10:37:000.1[facility] HermannHEMATOLOGY 2020-08-29 10:37:001+ *ABN*(08/29/20 5:37 AM)[facility] DgredxdHJLDIDYGKF8572-31-59 10:37:00Not Detected (08/29/20 5:37 AM)[facility] HermannBLOOD BANK RESULTS 2020-08-29 10:37:00Negative (08/29/20 5:37 AM)[facility] HermannCHEM BDLLA2009-32-93 10:37:35614Ialkqsor HermannCHEM FHQYX2068-17-23 10:37:0028[facility] HermannCHEM JHOVP6797-94-63 10:37:001.01[facility] HermannCHEM GIAYB4455-28-65 10:37:64437 [facility] HermannCHEM XDKCB3033-53-93 10:37:003.8[facility] HermannCHEM PANEL 2020-08-29 10:37:99126Xkqznacy HermannCHEM AMUAI2380-54-83 10:37:0028[facility] HermannCHEM ZBZLZ4107-29-63 10:37:009.8[facility] HermannCHEM XERTT9701-93-14 10:37:0011.8[facility] HermannCHEM IURYX2842-25-35 10:37:0059[facility] HermannCHEM LAHGS3644-42-14 10:37:002.9[facility] QgfctljNXYPAWCHZQ0659-97-72 10:37:006.8 [facility] BduckylNNSALRWJJA2437-56-40 10:37:004.47[facility] HermannHEMATOLOGY 2020-08-29 10:37:0010.6[facility] YmvzmhwFIAQIBPTTE5303-15-57 10:37:0034.0[facility] CdzavuqFQXAVWCJBT5731-36-04 10:37:0076.1[facility] YlolezxKVIIBSHYBF2732-14-06 10:37:00 Test Item Value Reference Range Interpretation Comments MCH (test code = MCH) 23.8 pg 27.0-31.0 [facility] GzpzocpGEXDYBMXMT2783-31-69 10:37:0031.3[facility] HermannHEMATOLOGY 2020-08-29 10:37:0018.2[facility] NbididzEYPXCBCCLK1265-24-24 10:37:84405Boxahyem ZrqwfjhJRMTZBUTQT9704-56-64 10:37:007.5[facility] ZcisenmXMKMTNSNUW5437-58-73 10:37:00 Test Item Value Reference Range Interpretation Comments PT (test code = PT) 12.8 s 12.0-14.7 [facility] QjnofimENSVBLYVQV5495-60-58 10:37:00 Test Item Value Reference Range Interpretation Comments INR (test code = INR) 0.97 1 0.85-1.17 [facility] GkonroqCRGCXLJNMA3022-84-26 10:37:00 Test Item Value Reference Range Interpretation Comments PTT (test code = PTT) 25.0 s 22.9-35.8 [facility] KsqnzecXUVXTAPRPT6721-49-66 10:37:0070.5[facility] HermannHEMATOLOGY 2020-08-29 10:37:0018.8[facility] VacgikxADOTWGIEMA0788-18-58 10:37:009.5[facility] PfinypwZUNFNOTUBZ3222-46-36 10:37:000.9[facility] KevxlrrLQMVSEOZKS8497-62-70 10:37:000.3[facility] LlyeotbBRITZQIDHC7137-71-29 10:37:004.8[facility] ZSWUSNQREC9551-68-79 10:37:001.3[facility] TnfrqjgJEQUJLGCHJ0569-68-50 10:37:000.6 [facility] PhlvayaTXHNECVAUB8259-39-13 10:37:000.1[facility] HermannHEMATOLOGY 2020-08-29 10:37:001+ *ABN*(08/29/20 5:37 AM)[facility] QfimpwdRUHRZOECNY5110-18-83 10:37:00Not Detected (08/29/20 5:37 AM)[facility] HermannBLOOD BANK RESULTS 2020-08-29 10:37:00Negative (08/29/20 5:37 AM)[facility] HermannCHEM MIKYP1533-15-88 10:37:83111Vwllcryf HermannCHEM GXGQB8353-31-67 10:37:0028[facility] HermannCHEM UAWHD5603-11-95 10:37:001.01[facility] HermannCHEM GCJBI0318-55-51 10:37:07241 [facility] HermannCHEM UGVNN0795-73-76 10:37:003.8[facility] HermannCHEM PANEL 2020-08-29 10:37:83837Euawoiii HermannCHEM PAOEH6262-89-09 10:37:0028[facility] HermannCHEM TSXHJ5190-52-27 10:37:009.8[facility] HermannCHEM KFBFL9565-84-91 10:37:0011.8[facility] HermannCHEM SMNHB8209-51-48 10:37:0059[facility] HermannCHEM ETJPP5216-21-05 10:37:002.9[facility] HrjtvnpQLCWDRCNEV8737-66-39 10:37:006.8 [facility] WuvfadlRBUPLSOTTT5015-07-33 10:37:004.47[facility] HermannHEMATOLOGY 2020-08-29 10:37:0010.6[facility] BjmsjwpFAADQCQAKY5852-28-93 10:37:0034.0[facility] PytdimqAYLELVGXPA4292-18-93 10:37:0076.1[facility] UnmdvtwPVESUGSOKZ1640-43-87 10:37:00 Test Item Value Reference Range Interpretation Comments MCH (test code = MCH) 23.8 pg 27.0-31.0 [facility] JxlgrzuIVUFWGIRKD3515-06-40 10:37:0031.3[facility] HermannHEMATOLOGY 2020-08-29 10:37:0018.2[facility] HdwbnzzXYYVIVTFVM3883-89-65 10:37:70736Nveglejb YjksgyzUWKZWBZXCW2225-75-49 10:37:007.5[facility] QwlufroGZLWJDCGWU6358-83-39 10:37:00 Test Item Value Reference Range Interpretation Comments PT (test code = PT) 12.8 s 12.0-14.7 [facility] CeotobxFXROTGZHGO5855-73-35 10:37:00 Test Item Value Reference Range Interpretation Comments INR (test code = INR) 0.97 1 0.85-1.17 [facility] FzwpgpyZCFXPWSYSG4788-10-74 10:37:00 Test Item Value Reference Range Interpretation Comments PTT (test code = PTT) 25.0 s 22.9-35.8 [facility] ZlhglpxCUAZDEPLBK6007-93-15 10:37:0070.5[facility] HermannHEMATOLOGY 2020-08-29 10:37:0018.8[facility] VpwwqbjJASIJIQPIS1450-84-27 10:37:009.5[facility] BlegczqGCJROKDVJC0082-28-72 10:37:000.9[facility] YzytyybKFQBERTCXP0243-53-11 10:37:000.3[facility] BgtsjyrQOYVTKEOQW8414-63-99 10:37:004.8[facility] UWODPNGJBL5701-58-84 10:37:001.3[facility] VnyoyfnJLQAAMKUNT9565-19-51 10:37:000.6 [facility] XiokemxCOJWWJVVQH1993-00-93 10:37:000.1[facility] HermannHEMATOLOGY 2020-08-29 10:37:001+ *ABN*(08/29/20 5:37 AM)[facility] WwapfmpJIBSFTQEJF1253-50-01 10:37:00Not Detected (08/29/20 5:37 AM)[facility] HermannBLOOD BANK RESULTS 2020-08-29 10:37:00Negative (08/29/20 5:37 AM)[facility] HermannCHEM YOBKY3193-83-87 10:37:27912Yzrqhdwe HermannCHEM CINNX9622-05-48 10:37:0028[facility] HermannCHEM UYGUG7330-82-19 10:37:001.01[facility] HermannCHEM OXNDQ1765-43-59 10:37:18973 [facility] HermannCHEM LUWYF1672-42-02 10:37:003.8[facility] HermannCHEM PANEL 2020-08-29 10:37:07154Ivrehtwn HermannCHEM ABNIR6256-99-13 10:37:0028[facility] HermannCHEM YXRVG0397-00-60 10:37:009.8[facility] HermannCHEM DARKV4730-40-51 10:37:0011.8[facility] HermannCHEM FNPVT5136-33-26 10:37:0059[facility] HermannCHEM CIIRT6183-52-71 10:37:002.9[facility] XaucfkiUJJOEZEHRV3113-98-55 10:37:006.8 [facility] SyqymwhWJIAZBODOO5384-55-94 10:37:004.47[facility] HermannHEMATOLOGY 2020-08-29 10:37:0010.6[facility] MdbrycnJQJHZSIRFU5148-21-29 10:37:0034.0[facility] VxrchdvRBNWMZRGBZ2370-49-34 10:37:0076.1[facility] PuaoxcpQDWXQKUPJZ0115-26-02 10:37:00 Test Item Value Reference Range Interpretation Comments MCH (test code = MCH) 23.8 pg 27.0-31.0 [facility] NsmvslmSVYCHYMVEY9737-61-40 10:37:0031.3[facility] HermannHEMATOLOGY 2020-08-29 10:37:0018.2[facility] UdtpmufFQOTIKNLTZ7785-55-45 10:37:86190Izcjuwru KnqfrcoAXKEDDSOGP7019-48-48 10:37:007.5[facility] YmqfekuMBXAMCBGOR0382-49-12 10:37:00 Test Item Value Reference Range Interpretation Comments PT (test code = PT) 12.8 s 12.0-14.7 [facility] MshfmhtPXHNTHAPKO0500-87-48 10:37:00 Test Item Value Reference Range Interpretation Comments INR (test code = INR) 0.97 1 0.85-1.17 [facility] IbsnevuPJVBDJFSAY6858-37-09 10:37:00 Test Item Value Reference Range Interpretation Comments PTT (test code = PTT) 25.0 s 22.9-35.8 [facility] VfzjehgRIAEXHHRAW2972-17-66 10:37:0070.5[facility] HermannHEMATOLOGY 2020-08-29 10:37:0018.8[facility] CzugwimXOEGWTFOPV4728-79-19 10:37:009.5[facility] ZpartvsYAILFUMSZP4492-52-89 10:37:000.9[facility] JieqsqcLMCINTXOZG3022-04-59 10:37:000.3[facility] CxzczebMSYEEXFJFU5791-64-33 10:37:004.8[facility] CNXEZJWGLL6110-29-75 10:37:001.3[facility] PjjwckoQSSRPMAVFC0938-77-99 10:37:000.6 [facility] JocgwqyXVLWADCSST8740-82-52 10:37:000.1[facility] HermannHEMATOLOGY 2020-08-29 10:37:001+ *ABN*(08/29/20 5:37 AM)[facility] DldmxjdWGKRDNBDAH9179-23-47 10:37:00Not Detected (08/29/20 5:37 AM)[facility] HermannBLOOD BANK RESULTS 2020-08-29 10:37:00Negative (08/29/20 5:37 AM)[facility] HermannCHEM CQJYQ2848-51-44 10:37:97545Qltckhfi HermannCHEM ATGPQ5277-49-81 10:37:0028[facility] HermannCHEM JMRGF1085-36-69 10:37:001.01[facility] HermannCHEM APLHW4272-73-09 10:37:87275 [facility] HermannCHEM KOEOX4570-38-21 10:37:003.8[facility] HermannCHEM PANEL 2020-08-29 10:37:57745Wsbhrpqr HermannCHEM LVTSG7747-57-88 10:37:0028[facility] HermannCHEM PFLMT7295-12-14 10:37:009.8[facility] HermannCHEM JODRV9047-10-93 10:37:0011.8[facility] HermannCHEM COCSM1085-99-96 10:37:0059[facility] HermannCHEM NOFUP3209-26-78 10:37:002.9[facility] YpbkoxuPVIWMLFDBI6134-71-62 10:37:006.8 [facility] GipuwsbBUULDOAAHM2749-34-51 10:37:004.47[facility] HermannHEMATOLOGY 2020-08-29 10:37:0010.6[facility] WmoqaekYKDVMDFZJS3326-00-11 10:37:0034.0[facility] FmvoqbzCGHWTEZATG4700-52-95 10:37:0076.1[facility] SkeycxgCBDDBBOSRW7738-89-28 10:37:00 Test Item Value Reference Range Interpretation Comments MCH (test code = MCH) 23.8 pg 27.0-31.0 [facility] RfzdthnOCOOQJXANR5063-04-06 10:37:0031.3[facility] HermannHEMATOLOGY 2020-08-29 10:37:0018.2[facility] XynmeurYEPEUIADBU9274-29-91 10:37:00952Iqfikfab HplaxyoYAKGFGRUEM4295-43-72 10:37:007.5[facility] QbladtuKMBQXNRXDX0753-99-71 10:37:00 Test Item Value Reference Range Interpretation Comments PT (test code = PT) 12.8 s 12.0-14.7 [facility] IazgxsjOINDDPQTRZ9744-57-90 10:37:00 Test Item Value Reference Range Interpretation Comments INR (test code = INR) 0.97 1 0.85-1.17 [facility] HrjutqkZMSEFXRBDE0132-27-73 10:37:00 Test Item Value Reference Range Interpretation Comments PTT (test code = PTT) 25.0 s 22.9-35.8 [facility] EuazagjIXKHBBKRSQ4439-11-95 10:37:0070.5[facility] 10:37:0018.8[facility] MvfbpiqKWILVEQHFX0947-34-08 10:37:009.5[facility] GwksduaJSZTVAOCTL9050-74-84 10:37:000.9[facility] TstrjzrMUCQAXYHSM2356-33-25 10:37:000.3[facility] BxejmtdICCYHWQDAM4338-26-70 10:37:004.8[facility] MPPHURRVRD5786-55-12 10:37:001.3[facility] XkncqffRTJFVNMWWW9486-50-00 10:37:000.6 [facility] DmtexjaVEXGPFBPLM5461-67-36 10:37:000.1[facility] 2020-08-29 10:37:001+ *ABN*(08/29/20 5:37 AM)[facility] WgtxrveKHYWTKZDBH6120-39-79 10:37:00Not Detected (08/29/20 5:37 AM)[facility] 2020-08-29 10:37:00Negative (08/29/20 5:37 AM)[facility]annCHEM USJGO8258-47-45 10:37:18796Ysudlpfm HermannCHEM UQUKB9913-57-65 10:37:0028[facility]annCHE[facility] QIKCN8796-26-72 10:37:001.01[facility]annCHE[facility] POBEH1553-87-91 10:37:01888 [facility] FNMJV5581-92-76 10:37:003.8[facility]annCHE[facility] PANEL 2020-08-29 10:37:39121Suqzyxgw HermannCHEM DLPIA2895-50-09 10:37:0028[facility]annCHE[facility] XWOAX1013-35-94 10:37:009.8[facility]annCHE[facility] UPNDJ8145-86-05 10:37:0011.8[facility]annCHE[facility] LDTSC3307-25-45 10:37:0059[facility]annCHE[facility] FDOEP3150-27-24 10:37:002.9[facility] RtykytzHBERVVKFDO3868-77-13 10:37:006.8 [facility] JekzzgiEICVMDOXYS1018-35-03 10:37:004.47[facility]HE[facility]OLOGY 2020-08-29 10:37:0010.6[facility] ZmonfqrUDXWMKMGIA6513-40-66 10:37:0034.0[facility] PtmfbshAJDCDGYQDP4880-58-44 10:37:0076.1[facility] DfqcvcpQJZXMAZHFI6862-80-01 10:37:00 Test Item Value Reference Range Interpretation Comments MCH (test code = MCH) 23.8 pg 27.0-31.0 [facility] RgxwnbdBFPHOUEFHX4277-04-35 10:37:0031.3[facility] 2020-08-29 10:37:0018.2[facility] NpsjwhjRGFVPBPBZB1442-78-87 10:37:95285Aolcbpoc NsnqrztZKBIYTNFOH3554-02-09 10:37:007.5[facility] BrpjfjrTSAODGOHVH8482-35-74 10:37:00 Test Item Value Reference Range Interpretation Comments PT (test code = PT) 12.8 s 12.0-14.7 [facility] FafewgzQXHDJRKILG8561-10-86 10:37:00 Test Item Value Reference Range Interpretation Comments INR (test code = INR) 0.97 1 0.85-1.17 [facility] IjlkmiwOQTSGKZDRT4257-33-96 10:37:00 Test Item Value Reference Range Interpretation Comments PTT (test code = PTT) 25.0 s 22.9-35.8 [facility] PkmpcmtSCZFFIRIIE2474-71-37 10:37:0070.5[facility]annHE[facility]OLOGY 2020-08-29 10:37:0018.8[facility] EtbbgneBJDAWKXFTQ0028-35-54 10:37:009.5[facility] DssiceiMQVXXWISAK7801-85-06 10:37:000.9[facility] WgcbohiSVUVTISCQL2140-91-01 10:37:000.3[facility] PbgxenxJKRKAKJUSC4162-03-84 10:37:004.8[facility] USVOEKEGJO0778-54-08 10:37:001.3[facility] YusjjumVCLNZCBFKW0321-50-81 10:37:000.6 [facility] XaaisrcLQAMWGDVDF6583-37-06 10:37:000.1[facility]annHEMATOLOGY 2020-08-29 10:37:001+ *ABN*(08/29/20 5:37 AM)[facility] YyrycmtRTYFMPNULG4617-10-78 10:37:00Not Detected (08/29/20 5:37 AM)[facility] GC, TV,PCR, IN EJQXM3076-93-17 15:38:00 Test Item Value Reference Range Interpretation Comments FT (test code = CHTR) Not detected (qualifier Not Detected N value) FT (test code = Not detected (qualifier Not Detected N NGONO) value) FT (test code = TRVG) Not detected (qualifier Not Detected N value) [facility] PTVQAMPANPU0330-73-66 10:57:00 Test Item Value Reference Range Interpretation Comments Color (test code = UCOLR) Dk. Yellow Clarity (test code = UCLAR) Hazy Glucose (test code = UGLUC) NEGATIVE NEGATIVE N Bilirubin (test code = UBILI) NEGATIVE NEGATIVE N Ketones (test code = UKET) NEGATIVE NEGATIVE N Specific [place] (test code = 1.025 1.005-1.030 A USPGR) [...] = None Seen None Seen N URCRYS) [facility] [place] Notes Date/Time Note Provider Source 2021-08-05 14:08:00-00:00 [id number] [address] PATIENT NAME: MARJAN FLEMING ADMIT DATE: 08/05/21 ACCOUNT NO: [id number] ROOM NO: AGE: 66 REPORT TYPE: eTRANSESOPHAGEAL ECHO REPORT SEX: F ADMITTING PHYSICIAN: ATTENDING PHYSICIAN:Mike Lund MD *[address] [address] Transesophageal Echocardiogram Patient: Marjan Fleming Study Date: 08/05/2021 BP: 158 / 92 Location: [facility] URN: [id number] : 1955 Age: 66 Height: / Gender: F Weight: / BMI/BSA: / *Ordering Physician: * Mike Lund *Interpreting Physician: * Ashely Mckeon MD *Residence Counselor: * Odessa Interiano Indications: POST WATCHMAN. Study [...] benzocaine spray. A transesophageal probe (SN: [id number]) was inserted by the attending order make up clerk without difficulty. L ocation: CV PREP. Patient status: Outpatient. Study completion: Th e patient tolerated the procedure well. There [...] benzocaine spray. A transeso phageal probe (SN: [id number]) was inserted by the attending cardiolog ist [...] PATIENT NAME: MARJAN FLEMING 1 2021-06-24 11:18:00-00:00 [id number] [place] [address] PATIENT NAME: MARJAN FLEMING ADMIT DATE: 06/17/21 ACCOUNT NO: [id number] ROOM NO: ADDIS AGE: 66 REPORT TYPE: eTRANSESOPHAGEAL ECHO REPORT SEX: F ADMITTING PHYSICIAN:Mike Lund MD ATTENDING PHYSICIAN:Mike Lund MD *[place] [address] Transesophageal Echocardiogram for [place] Patient: Marjan Fleming Study Date: 06/17/2021 BP: Location: [facility] URN: [id number] : 1955 Age: 66 Height: / [...] setup: The patient was brought to the [facility] in the fasting state.Intravenous access was obtained. Surface E CG leads, blood pressure measurements, and pulse oximetric signals were m onitored. Sedation. Sedation was administered by anesthesiology samreen rodas. Transesophageal echocardiography was performed. A transesophagea l probe was inserted by the anesthesiologist. Images were obtained using a [employer] cardiac ultrasound machine. Location: Catheterization laboratory. [facility] completion: The patient tolerated the procedure well. There were no complications. Findings Conclusions Summary: PATIENT NAME: MARJAN FLEMING 7 1. Study data: Transesophageal Echocardiogram fo marika Wynn. 2. Procedure narrative: Transesophageal echocard iography was performed. A transesophageal probe was inserted by the dayton sthesiologist. Images were obtained using a [employer] cardiac ultrasound mac dalton. Impressions: Patient with [...] stable. Right groin suture removed by this SCRAP PREPARER. No infect ion, bleeding, or hematoma. Dermabond applied and intact. Patient was provided with post-Watchman discharg e instructions. Patient is to follow up with PCP and order make up clerk in 1 t o 2 weeks post discharge. Patient is to follow up with order make up clerk for th e 45-day WESLEY, and for anticoagulation recommendation. Prepared and electronically signed by Ashely Mckeon MD 06/24/2021 11:18 Electronically Signed by Mike Lund MD on at 1118 PATIENT NAME: MARJAN FLEMING 47 2021-06-17 18:10:00-00:00 [id number] [place] [address] PATIENT NAME: MARJAN FLEMING ADMIT DATE: 06/17/21 ACCOUNT NO: [id number] ROOM NO: ADDIS AGE: 66 REPORT TYPE: eECHOCARDIOGRAM REPORT SEX: F ADMITTING PHYSICIAN:Mike Lund MD ATTENDING PHYSICIAN:Mike Lund MD *[place] [address] Limited Transthoracic Echocardiogram Patient: Marjan Fleming Study Date: 06/17/2021 BP: 117 / 82 Location: [facility] URN: [id number] : 1955 Age: 66 Height: 64 in / 162.6 cm Gender: F Weight: 210 lb / 95.5 kg BMI/BSA: 36.1 kg/m 2 / 2.12 m 2 *Ordering Physician: * Bahman Chopra *Interpreting Physician: * Kevin Merino MD *Residence Counselor: * Tiarra Loja Indications: Post Watchman/Rule out pericardial effusion. Study data: Transthoracic echocardiogram, limite d study. Procedure: Transthoracic echocardiography was performed. Im age quality was adequate. Limited 2D and limited spectral Dopple r. Location: CVPACU. Patient status: Outpatient. Study status: Routin e. [...] normal in size. PATIENT NAME: MARJAN FLEMING 48 Right atrium: The atrium is dilated. Aorta: [...] MARJAN FLEMING 7 2021-06-17 11:12:00-00:00 [facility]L [facility] ([facility]) Discharge Summary REPORT#:[id number] REPORT STATUS: Signed DATE:06/17/21 TIME: 1112 PATIENT: MARJAN FLEMING UNIT #: [id number] ROOM/BED: [place] [id number] : [birth year] AGE: 67 SEX: F ATTEND: René Lund MD ADM AUTHOR: Bahman Chopra * ALL edits or amendments must be made on the [employer]/computer document * PCP PCP Discharge to: home [...] stable. Right groin suture removed by this SCRAP PREPARER. No infect ion, bleeding, or hematoma. Dermabond applied and intact. Patient was provided with post-Watchman discharg e instructions. Patient is to follow up with PCP and order make up clerk in 1 to 2 we eks post discharge. Patient is to follow up with order make up clerk for th e 45-day WESLEY, and for [...] breath, lightheadedness, or dizzi ness to the order make up clerk. Dispo: It is medically necessary that patients [...] distress GI: soft, non-tender Extremities: moves all Neuro/COMMUNITY PROGRAM ASSISTANT: alert, oriented X 3 Skin: dry Wound/incision: Location: Right groin suture removed by this SCRAP PREPARER. No infect ion, bleeding, or hematoma. Dermabond [...] Mike Lund MD on 07/[address] [facility] #:[id number] END OF REPORT 2021-06-17 09:43:00-00:00 [id number] [place] [id number] PATIENT NAME: MARJAN FLEMING ADMIT DATE: 06/17/21 ACCOUNT NO: [id number] ROOM NO: ADDIS AGE: 66 REPORT TYPE: eELECTROCARDIOGRAM REPORT SEX: F ADMITTING PHYSICIAN:Mike Lund MD ATTENDING PHYSICIAN:Mike Lund MD Order: [id number] Test Reason : S/P WATCHMAN Test Date/Time Stamp: TueJun 17 2021 09:43:45 Blood Pressure : / mmHG Vent. Rate : 062 BPM Atrial Rate : 062 BPM P-R Int : 176 ms QRS Dur : 086 ms QT Int : 500 ms P-R-T Axes : 071 013 -04 degre es QTc Int : 507 ms Sinus rhythm with premature atrial complexes Minimal voltage criteria for LVH, may be normal variant Nonspecific ST and T wave abnormality Prolonged QT Abnormal ECG Confirmed by ARMANDO FISHER MD ([id number]) on 06/17/19 6:07:19 PM Referred By: Mike Lund Confirmed by:ARMANDO RICHARDS MD at 1807 PATIENT NAME: MARJAN FLEMING 7 2021-06-17 08:54:00-00:00 [id number] [place] [address] PATIENT NAME: MARJAN FLEMING ADMIT DATE: 06/17/21 ACCOUNT NO: [id number] ROOM NO: ADDIS AGE: 66 REPORT TYPE: CARDIAC CATHETERIZATION REPORT SEX: F ADMITTING PHYSICIAN:Mike Lund MD ATTENDING PHYSICIAN:Mike Lund MD PROCEDURE DATE: 06/17/2021 PROCEDURE PERFORMED: Left atrial appendage closu re using a 24 mm Watchman FLX closure device. ACCESS: Right femoral vein, 16-[place] closed wit h qbcwuv-di-rzlll suture. PHARMACOVIGILANCE SCIENTIST: Mike Lund MD. SECONDARY HOUSE CLEANER SUPERVISOR: Kevin Merino MD. COMPLICATIONS: None. BLEEDING: Less [...] I accessed right femo ral vein, placed 8-New Zealander [place] sheath. Subsequently, upgraded to 16-[place] sheath and gave a partial dose of heparin, then took the SL1 sheat h into the SVC over a wire with [place] needle inside, descended under the fluor oscopy [...] I removed the Watchman sheath and the 16-New Ze[place]ander sheath and placed tpmdeb-[id number]-zkjqr suture for hemostasis, then achieved a good hemo stasis. CONCLUSION: Left atrial appendage closure using a 24 mm Watchman FLX closure PATIENT NAME: MARJAN FLEMING 7 device. Dictated By: Mike Lund MD WT: CATH:GAYLE/RIKY/ALLA Conf#: [id number]/DID#: [id number] Authenticated by Mike Lund MD On 07/01/2021 12:30:01 PM Electronically Signed by Mike Lund MD on at 1230 PATIENT NAME: MARJAN FLEMING 7 2021-06-16 10:36:00-00:00 [id number] [place] [address] PATIENT NAME: MARJAN FLEMING ADMIT DATE: ACCOUNT NO: [id number] ROOM NO: AGE: 66 REPORT TYPE: eELECTROCARDIOGRAM REPORT SEX: F ADMITTING PHYSICIAN: ATTENDING PHYSICIAN:Mike Lund MD Order: [id number] Test Reason : PREOP Test Date/Time Stamp: [...]
[2022-12-27 10:42] LABS: Absolute Lymphocytes (CBC) 0.7 K/uL (0.7-4.9); Hematocrit 32.8 % (36.0-45.0); Lymphocytes % 19.1 % (15.3-44.8); MCV 81.8 fL (80-100); MPV 7.4 fL (7.6-11.3); Platelets 121 thou/uL (152-406)
[2022-12-27 11:01] LABS: Albumin 3.3 g/dL (3.4-5.0); Bilirubin Direct 0.2 mg/dL (0-0.2); Bilirubin Indirect, Calculated 0.4 mg/dL (0.2-0.8); Bilirubin Total 0.6 mg/dL (0.2-1.0); Potassium 3.2 mEq/L (3.5-5.1); Protein, Total 6.9 g/dL (6.4-8.2); Troponin High Sensitivity 14.7 pg/mL (<58.9)
[2022-12-27 11:09] LABS: Protime INR 1.05
--- NOTE | 2022-12-27 11:35 | RAD REPORT ---
EXAM DESCRIPTION: RADChest Single View12/27/2022 11:11 am CLINICAL HISTORY: DYSPNEA COMPARISON: Chest Single View dated 12/19/2022; Chest Single View dated 12/13/2022; Chest Single View dated 11/24/2022; Chest Pa And Lat (2 Views) dated 11/15/2022 TECHNIQUE: Portable AP view of the chest. FINDINGS: The lungs are clear. No pneumothorax or effusion. Stable cardiomegaly. The mediastinal con tours are unchanged. IMPRESSION: No acute pulmonary process. Stable cardiomegaly.
[2022-12-27] MEDS ORDERED: FUROSEMIDE 40 MG/4 ML VIAL ONE ×2 (11:52→14:05)
[2022-12-27] MEDS ORDERED: HYDRALAZINE HCL 20 MG/ML VIAL ONE ×2 (12:28→14:05)
[2022-12-27] MEDS ORDERED: ONDANSETRON 4 MG/2 ML VIAL ONE (12:29)
[2022-12-27] MEDS ORDERED: HYDROCODONE/APAP 10/325 TAB ONE (12:29)
--- NOTE | 2022-12-27 14:14 | EDPHYS ---
Physician Documentation [facility] Name: Marjan Kolb Age: 67 yrs Sex: Female : 1955 Arrival Date: 12/27/2022 Time: 09:42 Bed 2 Private MD: ED Physician Ramon Baker HPI: 12/27 10:45 This 67 yrs old Female presents to ER via EMS with complaints of Shortness Of Breath. rn 10:45 The patient has shortness of breath at rest. Onset: The symptoms/episode began/occurred rn yesterday. Duration: The symptoms are intermittent. The patient's shortness of breath is aggravated by exertion, light activity, supine position. Associated signs and symptoms: Pertinent positives: non-productive cough, Pertinent negatives: chest pain, fever, hemoptysis. Severity of symptoms: At their worst the symptoms were mild in the emergency department the symptoms are unchanged. The patient has experienced similar episodes in the past. The patient has not recently seen a physician. Historical: - Allergies: 09:44 Azithromycin; aa5 09:44 Bactrim; aa5 09:44 butorphanol; aa5 09:44 Fentanyl; aa5 09:44 Reglan; aa5 09:44 Sulfa (Sulfonamide Antibiotics); aa5 09:44 TRIMETHOPRIM; aa5 - PMHx: 09:44 angina pectoris; Anxiety; Atrial fibrillation; Bipolar disorder; esophageal varicies; aa5 Hepatitis; HIV positive; Hypertensive disorder; Migraine; panic attack; - Immunization history:: Adult Immunizations unknown. - Social history:: Smoking status: Patient denies any tobacco usage or history of. - Family history:: not pertinent. - Hospitalizations: : No recent hospitalization is reported. ROS: 10:45 Constitutional: Negative for fever, chills, and weight loss, Cardiovascular: Negative rn for chest pain, palpitations Respiratory: Negative for wheezing, and pleuritic chest pain Abdomen/GI: Negative for abdominal pain, nausea, vomiting, diarrhea, and constipation MS/Extremity: Negative for injury and deformity Skin: Negative for injury, rash, and discoloration, Neuro: Negative for headache, numbness, tingling, and seizure. Exam: 10:45 Constitutional: This is a well developed, well nourished patient who is awake, alert, rn and in no acute distress. Head/Face: Normocephalic, atraumatic. Cardiovascular: Regular rate and rhythm. No pulse deficits. Respiratory: No increased work of breathing, no retractions or nasal flaring. NO wheezing noted Abdomen/GI: Soft, non-tender Skin: Warm, dry MS/ Extremity: Pulses equal, no cyanosis. Neuro: Awake and alert, GCS 15 Vital Signs: 09:45 BP 195 / 101; Pulse 58; Resp 20 S; Temp 98.2(O); Pulse Ox 96% on R/A; aa5 11:50 BP 202 / 106; Pulse 59; Resp 18 S; Pulse Ox 100% on R/A; aa5 12:20 Weight 81.65 kg (R); aa5 12:48 BP 212 / 115; Pulse 64; Resp 22 S; Pulse Ox 97% on 2 lpm NC; aa5 13:30 BP 186 / 122; Pulse 61; Resp 18 S; Pulse Ox 100% on 2 lpm NC; aa5 14:24 BP 152 / 79; Pulse 62; Resp 18 S; Pulse Ox 96% on R/A; aa5 15:00 BP 155 / 80; Pulse 63; Resp 18 S; Temp 98(TE); Pulse Ox 99% on R/A; aa5 MDM: 09:45 Patient medically screened. rn 14:13 Differential diagnosis: Anxiety Reaction CHF exacerbation, Chronic Obstructive rn Pulmonary Disease Pneumothorax pulmonary edema. Data reviewed: vital signs, nurses notes, lab test result(s), radiologic studies, plain films, and as a result, I will discharge patient. Counseling: I had a detailed discussion with the patient and/or guardian regarding: the historical points, exam findings, and any diagnostic results supporting the discharge/admit diagnosis, lab results, radiology results, the need for outpatient follow up, to return to the emergency department if symptoms worsen or persist or if there are any questions or concerns that arise at home. Special discussion: I discussed with the patient/guardian in detail that at this point there is no indication for admission to the hospital. It is understood, however, that if the symptoms persist or worsen the patient needs to return immediately for re-evaluation. Based on the history and exam findings, there is no indication for further emergent testing or inpatient evaluation. I discussed with the patient/guardian the need to see the stereotype molder for further evaluation of the symptoms. I discussed with the patient/guardian the need to see the primary care provider for further evaluation of the symptoms. 12/27 10:15 Order name: BMP; Complete Time: 11:14 rn 12/27 10:15 Order name: CBC with Diff; Complete Time: 10:58 rn 12/27 10:15 Order name: Hepatic Function; Complete Time: 11:14 rn 12/27 10:15 Order name: NT PRO-BNP; Complete Time: 11:14 rn 12/27 10:15 Order name: PT-INR; Complete Time: 11:14 rn 12/27 10:15 Order name: Ptt, Activated; Complete Time: 11:14 rn 12/27 10:15 Order name: Troponin HS; Complete Time: 11:14 rn 12/27 10:59 Order name: XRAY Chest (1 view); Complete Time: 11:45 rn 12/27 10:15 Order name: EKG; Complete Time: 10:16 rn 12/27 10:15 Order name: Cardiac monitoring; Complete Time: 10:18 rn 12/27 10:15 Order name: EKG - Nurse/Tech; Complete Time: 10:18 rn 12/27 10:15 Order name: IV Saline Lock; Complete Time: 10:18 rn 12/27 10:15 Order name: Labs collected and sent; Complete Time: 10:18 rn 12/27 10:15 Order name: O2 Per Protocol; Complete Time: 10:18 rn 12/27 10:15 Order name: O2 Sat Monitoring; Complete Time: 10:18 rn Administered Medications: 11:51 Drug: Furosemide IVP 40 mg Route: IVP; Site: left upper arm; aa5 12:13 Follow up: Response: No adverse reaction aa5 12:13 Drug: Ondansetron IVP 4 mg Route: IVP; Site: left upper arm; aa5 12:20 Follow up: Response: No adverse reaction aa5 12:13 Drug: hydrALAZINE IVP 10 mg Route: IVP; Site: left upper arm; aa5 12:28 Follow up: Response: Blood pressure is unchanged; Blood pressure is unchanged. MD [email or web address] notified. 12:47 Drug: [place] PO 10 mg-325 mg 1 tabs Route: PO; aa5 13:15 Follow up: Response: No adverse reaction aa5 14:00 Drug: hydrALAZINE IVP 10 mg Route: IVP; Site: left upper arm; aa5 14:24 Follow up: Response: Blood pressure is lowered aa5 14:00 Drug: Furosemide IVP 40 mg Route: IVP; Site: left upper arm; aa5 14:24 Follow up: Response: No adverse reaction aa5 14:40 Drug: LORazepam PO 1 mg Route: PO; aa5 15:00 Follow up: Response: No adverse reaction; Anxiety decreased aa5 Disposition Summary: 12/27/22 14:14 Discharge Ordered Location: Home rn Problem: an acute exacerbation rn Symptoms: have improved rn Condition: Stable rn Diagnosis - Unspecified combined systolic (congestive) and diastolic (congestive) heart failure rn - Dyspnea, unspecified rn - Anxiety disorder, unspecified rn Followup: rn - With: Private Physician - When: As needed - Reason: Recheck today's complaints, Re-evaluation by your physician Discharge Instructions: - Discharge Summary Sheet rn Forms: - Medication Reconciliation Form rn - Thank You Letter rn - Antibiotic managing attorney - Prescription Opioid Use rn - Patient Portal Instructions rn Prescriptions: - Lasix 40 mg Oral Tablet - take 1 tablet by ORAL route once daily for 30 days; 30 tablet; Refills: 0, rn Product Selection Permitted Signatures: Dispatcher [employer] Ramon Linton MD MD rn Calderon, Audri, RN RN aa5
--- NOTE | 2022-12-27 14:14 | ER ---
Nurse's Notes [facility] Name: Marjan Kolb Age: 67 yrs Sex: Female : 1955 Arrival Date: 12/27/2022 Time: 09:42 Bed 2 Private MD: Diagnosis: Unspecified combined systolic (congestive) and diastolic (congestive) heart failure;Dyspnea, unspecified;Anxiety disorder, unspecified Presentation: 12/27 09:45 Chief complaint: EMS states: back pain and SOB since last night. EMS reports systolic aa5 BP >200, O2 sat 96% RA upon arrival. Pt denies injury, denies cough. Coronavirus screen: shortness of breath. Ebola Screen: Patient denies travel to an Ebola-affected area in the 21 days before illness onset. Initial Sepsis Screen: Does the patient meet any 2 criteria? No. Patient's initial sepsis screen is negative. Does the patient have a suspected source of infection? No. Patient's initial sepsis screen is negative. Risk Assessment: Do you want to hurt yourself or someone else? Patient reports no desire to harm self or others. Onset of symptoms was December 26, 2022. 09:45 Acuity: BLAYNE 3 aa5 09:45 Method Of Arrival: EMS: [facility] aa5 Historical: - Allergies: 09:44 Azithromycin; aa5 09:44 Bactrim; aa5 09:44 butorphanol; aa5 09:44 Fentanyl; aa5 09:44 Reglan; aa5 09:44 Sulfa (Sulfonamide Antibiotics); aa5 09:44 TRIMETHOPRIM; aa5 - PMHx: 09:44 angina pectoris; Anxiety; Atrial fibrillation; Bipolar disorder; esophageal varicies; aa5 Hepatitis; HIV positive; Hypertensive disorder; Migraine; panic attack; - Immunization history:: Adult Immunizations unknown. - Social history:: Smoking status: Patient denies any tobacco usage or history of. - Family history:: not pertinent. - Hospitalizations: : No recent hospitalization is reported. Screenin:49 [facility] ED Fall Risk Assessment (Adult) History of falling in the last 3 months, aa5 including since admission No falls in past 3 months (0 pts) Confusion or Disorientation No (0 pts) Intoxicated or Sedated No (0 pts) Impaired Gait Yes (1 pt) Mobility Assist Device Used Yes (1 pt) Altered Elimination No (0 pt) Score/Fall Risk Level 0 - 2 = Low Risk Oriented to surroundings, Maintained a safe environment, Educated pt \T\ family on fall prevention, incl call for assistance when getting out of bed. Abuse screen: Denies threats or abuse. Nutritional screening: No deficits noted. Tuberculosis screening: No symptoms or risk factors identified. Assessment: 09:45 General: Appears comfortable, Behavior is calm, cooperative. Pain: Complains of pain in aa5 lumbar area Quality of pain is described as sharp, shooting, Pain began 1 day ago. Is continuous. Neuro: Level of Consciousness is awake, alert, obeys commands, Oriented to person, place, time, situation. Cardiovascular: Heart tones S1 S2 present Rhythm is regular. Respiratory: Airway is patent Respiratory effort is even, unlabored, Respiratory pattern is regular, symmetrical, Breath sounds are clear bilaterally. Denies cough. GI: Abdomen is round non-distended, Bowel sounds present X 4 quads. Abd is soft and non tender X 4 quads. : No signs and/or symptoms were reported regarding the genitourinary system. EENT: No signs and/or symptoms were reported regarding the EENT system. Derm: Skin is pink, warm \T\ dry. Musculoskeletal: Range of motion: intact in all extremities. 10:20 Reassessment: Patient is alert, oriented x 3, equal unlabored respirations, skin aa5 warm/dry/pink. 10:40 Reassessment: Pt assisted to bedside commode, pt voided, increased SOB noted upon aa5 transfer from bedside commode to bed. O2 sat 96% RA and pt requesting oxygen, pt states he uses home O2 as needed. O2 currently at 2L NC. . 10:54 Reassessment: Patient is alert, oriented x 3, equal unlabored respirations, skin aa5 warm/dry/pink. Pt requesting pain medication, was notified. . 11:50 Reassessment: Patient is alert, oriented x 3, equal unlabored respirations, skin aa5 warm/dry/pink. 12:20 Reassessment: Patient is alert, oriented x 3, equal unlabored respirations, skin aa5 warm/dry/pink. 13:30 Reassessment: Patient is alert, oriented x 3, equal unlabored respirations, skin aa5 warm/dry/pink. 14:15 Reassessment: Patient is alert, oriented x 3, equal unlabored respirations, skin rs5 warm/dry/pink. 14:40 Reassessment: Patient is alert, oriented x 3, equal unlabored respirations, skin rs5 warm/dry/pink. 15:26 Reassessment: Contacted [facility] on behalf of pt for transportation back home, aa5 small business sales representative stated wait time for transportation up to 3-4 hours, ETA approximately at 1830, authorization number # [id number]. Pt was notified. . 15:55 Reassessment: Patient is alert, oriented x 3, equal unlabored respirations, skin aa5 warm/dry/pink. 15:55 Reassessment: Pt was assisted with bedside commode by ER staff, pt voided total of 6 aa5 times. . Vital Signs: 09:45 BP 195 / 101; Pulse 58; Resp 20 S; Temp 98.2(O); Pulse Ox 96% on R/A; aa5 11:50 BP 202 / 106; Pulse 59; Resp 18 S; Pulse Ox 100% on R/A; aa5 12:20 Weight 81.65 kg (R); aa5 12:48 BP 212 / 115; Pulse 64; Resp 22 S; Pulse Ox 97% on 2 lpm NC; aa5 13:30 BP 186 / 122; Pulse 61; Resp 18 S; Pulse Ox 100% on 2 lpm NC; aa5 14:24 BP 152 / 79; Pulse 62; Resp 18 S; Pulse Ox 96% on R/A; aa5 15:00 BP 155 / 80; Pulse 63; Resp 18 S; Temp 98(TE); Pulse Ox 99% on R/A; aa5 ED Course: 09:44 Patient arrived in ED. rn 09:44 Ramon Baker MD is Attending Physician. rn 09:45 Lindsay Schulz, ASHLEY is Primary Nurse. aa5 09:45 Arm band placed on Patient placed in an exam room, on a stretcher. aa5 09:45 Patient has correct armband on for positive identification. Placed in gown. Bed in low aa5 position. Call light in reach. Side rails up X2. Client placed on continuous cardiac and pulse oximetry monitoring. NIBP monitoring applied. 09:47 Triage completed. aa5 10:20 Initial lab(s) drawn, by me, sent to lab. Missed attempt(s): 24 gauge in right forearm. aa5 Bleeding controlled, band aid applied, catheter tip intact. 10:50 Inserted saline lock: 24 gauge in left upper arm, using aseptic technique. aa5 11:13 XRAY Chest (1 view) In Process Unspecified. EDMS 15:55 No provider procedures requiring assistance completed. IV discontinued, intact, aa5 bleeding controlled, No redness/swelling at site. Pressure dressing applied. Administered Medications: 11:51 Drug: Furosemide IVP 40 mg Route: IVP; Site: left upper arm; aa5 12:13 Follow up: Response: No adverse reaction aa5 12:13 Drug: Ondansetron IVP 4 mg Route: IVP; Site: left upper arm; aa5 12:20 Follow up: Response: No adverse reaction aa5 12:13 Drug: hydrALAZINE IVP 10 mg Route: IVP; Site: left upper arm; aa5 12:28 Follow up: Response: Blood pressure is unchanged; Blood pressure is unchanged. aa5 notified. 12:47 Drug: [place] PO 10 mg-325 mg 1 tabs Route: PO; aa5 13:15 Follow up: Response: No adverse reaction aa5 14:00 Drug: hydrALAZINE IVP 10 mg Route: IVP; Site: left upper arm; aa5 14:24 Follow up: Response: Blood pressure is lowered aa5 14:00 Drug: Furosemide IVP 40 mg Route: IVP; Site: left upper arm; aa5 14:24 Follow up: Response: No adverse reaction aa5 14:40 Drug: LORazepam PO 1 mg Route: PO; aa5 15:00 Follow up: Response: No adverse reaction; Anxiety decreased aa5 Medication: 15:55 VIS not applicable for this client. aa5 Outcome: 14:14 Discharge ordered by . rn 15:55 Discharged to home via wheelchair. aa5 15:55 Condition: stable 15:55 Discharge instructions given to patient, Instructed on discharge instructions, follow up and referral plans. medication usage, Demonstrated understanding of instructions, follow-up care, medications, Prescriptions given X 1. 15:57 Patient left the ED. aa5 Signatures: Dispatcher [employer] EDOK Ramon Baker MD MD rn Calderon, Audri, RN RN aa5 Norton, Roger, RN RN rs5 Corrections: (The following items were deleted from the chart) 15:31 15:26 Reassessment: Contacted [facility] on behalf of pt for transportation back aa5 home. . aa5 15:32 15:26 Reassessment: Contacted [facility] on behalf of pt for transportation back aa5 home, small business sales representative stated wait time for transportation up to 3-4 hours, pt notified. . aa5 16:08 16:07 Reassessment: Pt was assisted with bedside commode by ER staff, pt voided total aa5 of 6 times. . aa5
[2022-12-27] MEDS ORDERED: LORAZEPAM 1 MG TABLET ONE (14:43)
[2022-12-27 16:02] VITALS: TEMP 98.2
[2022-12-27 16:09] VITALS: BP 152/79; O2SAT 96
--- NOTE | 2022-12-29 18:17 | EKG ---
Test Date: 2022-12-27 Test Time: 10:17:20 Bias Binding Cutter: LINDSEY MEASUREMENT RESULTS: Intervals: Rate: 56 UT: QRSD: 92 QT: 480 QTc: 463 [place]: P: UT: QRS: 35 T: 225 INTERPRETIVE STATEMENTS: Sinus rhythm Left ventricular hypertrophy with repolarization abnormality Abnormal ECG Compared to ECG 12/19/2022 09:31:39 Atrial premature complex(es) no longer present Electronically Signed On 12-29-22 18:12:56 CDT by Mike Lund
== END 2022-12-27 15:57 | disposition home or self-care (01) ==
LOC: ER 09:42
DX: I50.40 Unspecified combined systolic (congestive) and diastolic (congestive) heart failure (principal); F41.9 Anxiety disorder, unspecified; I10 Essential (primary) hypertension; Z21 Asymptomatic human immunodeficiency virus [HIV] infection status; Z88.1 Allergy status to other antibiotic agents; Z88.2 Allergy status to sulfonamides; Z88.5 Allergy status to narcotic agent; Z88.8 Allergy status to other drugs, medicaments and biological substances
CPT/HCPCS: 93005; 85025; 80048; 36415; 85610; 80076; 85730; 84484; 83880; 71045; 96375; 96374; 99285; J0360 ×2; J1940 ×2; J2405

== ENCOUNTER 2023-01-05 10:22 | Emergency (ER) | payer OTHER ==
--- OUTSIDE RECORDS SUMMARY | 2023-01-05 10:51 | XMS REPORT | Continuity of Care Document ---
:1955 Author Organization [facility] t Address [address] [place] [address] Care Team Providers Name Role Phone Urmila [...] Attending Clinician Unavailable Robbi Bal Attending Clinician [facility] Attending Clinician Unavailable Isaias Whiteside RN Attending Clinician Unavailable TOMY MARIE Attending Clinician Unavailable Reilly Means MD Attending Clinician Ofe Shields MD Attending Clinician Tomy Marie MD Attending Clinician Doctor Unassigned, [place] Attending Clinician Unavailable Bill COLES Attending Clinician Unavailable Bill Rose Attending Clinician CHARITY MCALLISTER Attending Clinician Unavailable Charity Mcallister MD Attending Clinician GADIEL KOEHLER Attending Clinician Unavailable Mike Lund Attending Clinician Unavailable NIKOLAI REEVES Attending Clinician Unavailable Eliseo Arce MD Attending Clinician Carol Ann IZQUIERDO, Sarai Lieberman Attending Clinician [phone] Ashly Pelletier MA Attending Clinician Unavailable Dagoberto Bass MD Attending Clinician [place] Evangelista Attending Clinician Lab, [facility] Pob I Attending Clinician Unavailable Monica Rodas MA Attending Clinician Unavailable Agustina Ortiz MA Attending Clinician Unavailable Andrez RAMIREZ, Rody Attending Clinician Unavailable Kirit Flood MD, V. Attending Clinician HEMATPOUR, BEVERLY Attending Clinician Unavailable Caridad PROJECTOR OPERATOR, Gloria Attending Clinician Xiao RAMIREZ, Michael Corbin Attending Clinician Unavailable Team, [facility] Attending Clinician UnavailDO PORSHA Newell Attending Clinician Unavailable Gadiel Koehler MD Attending Clinician Tyrone JENKINS, Eveline Sierra Attending Clinician Stanislav RAMIREZ, Eladio Inman Attending Clinician Unavailable Geralidne SALGUERO, Leyda Attending Clinician [phone] Selvin RAMIREZ, Stefanie Attending Clinician Unavailable [...] Expiration Date S gabino [facility] COMMUNITY PLAN [id number] 2012 STAR PLUS OON 00:00:00 [facility] [id number] 2019 DUAL COMPLETE HMO 00:00:[address] [facility] STAR [id number] 2019 PLUS 00:00:00 MEDICAID [facility] [id number] 2020 00:00:00 [facility] [id number] 2019 HEALTH [facility] 00:00:00 [employer] MEDICARE ADV [id number] 2019 2019 00:00:00 00:00:00 Problems Condition Condition Condition Status Onset Resolution Last Treating Co mments Source Name Details Category Date Date Treatment Clinician Date Dyspnea, Dyspnea, Disease Active Unive rs unspecifie unspecifie 02-11 it y of d type d type 00:00: [place] 00 Medical Branch Gastropare Gastropare Disease Active Overview : Methodi sis sis 4-[address] 00:[facility] note l might be different from the original. Added automatic ally from request for surgery [id number] Dysphagia Dysphagia Disease Active Overview: Methodi 4-[address] 00:00: [facility] 00 note l might be different from the original. Added automatic ally from request for surgery [id number] CCL / EPS CCL / EPS Diagnosis [...] N/V [facility] hoxazole - Clear 00:00: [place] [facility] trimetho DA Active SV [facility] prim - Clear 00:00: [place] [facility] codeine DA Active SV N/V [facility] -25 Clear 00:00: [place] [facility] Metoclop Propensi Active UT ramide ty to 12-12 Health adverse 00:00: reaction 00 s BUTORPHA DRUG Active Unknown-Cmnt Un matt NOL INGREDI 11-25 ity of 00:00: [place] [facility] Butorpha Drug Active Unknown - [...] Hives Univers INGREDI 208 ity of 00:00: [place] [facility] TRIMETHO DRUG Active Hives 2018-0 [...] [facility] Natural father Other - see comments [facility] Natural father [facility] Natural [facility] Hy[facility] Natural father [facility] Natural mother [facility] Social History Social Habit Start Date Stop Date Quantity Comments Source Gender identity 2020-10-06 Identifies as Method ist 15:23:56 female gender Hospital (finding) History SDOH [facility] Alcohol Frequency Hospita l History SDOH [facility] Alcohol Std Drinks Hospit al History SDOH [facility] Alcohol Binge [facility] Sexual orientation [facility] History of Social 2022-08-26 2022-08-[address] function 00:00:00 00:00:00 Hospital Exposure to 2022-04-30 2022-05-10 Yes University of SARS-CoV-2 (event) 00:00:00 10:25:00 [facility] Tobacco use and 2022-02-11 2022-02-11 Former smokeless Uni versity of exposure 00:00:00 00:00:00 tobacco user [facility] Tobacco Comment 2022-02-11 2022-02-11 Smokes approx 1-2 Un iversity of 00:00:00 00:00:00 cigarettes per [facility]ly [facility] day when she Branch smokes Alcohol intake 2020-12-08 2020-12-08 Current drinker [facility] 00:00:00 00:00:00 of [facility] (finding) Cigarettes smoked 2020-09-05 2020-09-[address] current (pack per 00:00:00 00:00:00 [facility] day) - Reported Cigarette 2020-09-05 2020-09-05 [facility] pack-years 00:00:00 00:00:00 Hospital Alcohol Comment 2016-09-23 2016-09-23 rare [facility] 00:00:00 00:00:00 Hospital History of tobacco 2011-09-29 User of smokeless University of use 00:00:00 tobacco [facility] Sex Ass[birth year] At [birth year] [facility] 00:00:00 00:00:00 Smoking Status Start Date Stop Date Source Ex-smoker 2022-02-11 00:00:00 2022-02-11 00:00:00 [facility] [place] [facility] Medications Ordered Filled Start Stop Current Ordering Indication Dosage Frequency Signature Comments Components Source Medication Medication Date Date Medication? Clinician (SIG) Name Name ravindra Yes [id number] Take one Univers ne-tenofovi 6-12 po daily ity of r alafen 00:00: [place] (DESCOVY) 00 Medical tablet Branch raltegravir Yes [id number] 400mg Take 1 Univers (ISENTRESS) 6-12 tablet by ity of 400 mg 00:00: mouth in [place] tablet 00 the Medical morning Branch and 1 tablet in the evening. DESCOVY Yes [id number] Take one Univers tablet 5-08 po daily ity of 00:00: [place] 00 Medical Branch raltegravir Yes [id number] 400mg Take 1 Univers (ISENTRESS) 5-08 tablet by ity of 400 mg 00:00: mouth in [place] tablet 00 the Medical morning Branch and 1 tablet in the evening. DESCOVY 2022- No [id number] Take one Univers tablet 5-08 06-12 po daily ity of 00:00: 00:00 [place] 00 :00 Medical Branch raltegravir 2022- No [id number] 400mg Take 1 Univers (ISENTRESS) 5-08 06-12 tablet by it y of 400 mg 00:00: 00:00 mouth in [place] tablet 00 :00 the Medical morning Branch and 1 tablet in the evening. emtmarianabi Yes [id number] Take one Univers ne-tenofovi 4-04 po daily ity of r alafen 00:00: [place] (DESCOVY) 00 Medical tablet Branch emtricitabi Yes [id number] Take one Univers ne-tenofovi 4-04 po daily ity of r alafen 00:00: [place] (DESCOVY) 00 Medical tablet Branch emtricitabi 2022- No [id number] Take one Univers ne-tenofovi 4-04 05-08 po [...] :00 ONCE, 1 Medical dose, On [facility] 05/10/22 at 1245, JOE NaCl 0.9% 2021-05 No 1000mL at 999 Uni vers (NS) bolus 07-11 mL/hr, ity of infusion 17:45: 20:00 1,000 mL, [place] as 1,000 mL 00 :00 IV Medical Infusion, Branch ONCE, 1 dose, On [facility] 05/10/22 at 1145, JOE cefpodoxime 2021-05- No [id number] 100mg Take 1 Univers 100 mg 2-17 12-25 tablet by ity of tablet 00:00: 05:59 mouth in [place] 00 :00 the Medical morning Branch and 1 tablet in the evening. Do all this for 7 days. cefpodoxime 2021-05- No [id number] 100mg Take 1 Univers 100 mg 2-17 12-25 tablet by ity of tablet 00:00: 05:59 mouth in [place] 00 :00 the [facility] morning Branch and 1 tablet in the evening. Do all this for 7 days. cefpodoxime 2021-05- No [id number] 100mg Take 1 Univers 100 mg 2-17 12-25 tablet by ity of tablet 00:00: 05:59 mouth in [place] 00 :00 the Medical morning Branch and 1 tablet in the evening. Do all this for 7 days. butalbital- 2021-05- No 1{tbl} 1 tablet, Univers acetaminoph 2-16 12-15 Oral, ity of en-caff 00:15: 23:19 ONCE, 1 [place] (ESGIC) 00 :00 dose, On Medical 50-325-40 [place] Branch mg tablet 1 05/06/22 tablet at 1815, JOE NaCl 0.9% 2021-05 No 500mL at 999 Univ ers (NS) bolus 2-16 12-16 mL/hr, 500 it y of infusion 00:00: 00:17 mL, IV [place] 500 mL 00 :00 Infusion, Medical ONCE, 1 Branch dose, On [facility] 05/06/22 at 1800, JOE ketorolac 2021-05 No 15mg 15 mg, Unive rs (TORADOL) 2-15 12-15 Slow IV ity of injection 22:00: 22:19 Push, [place] 15 mg 00 :00 ONCE, 1 Medical dose, On Branch [facility] 05/06/22 at 1600, JOE NaCl 0.9% 2021-05- No 1000mL at 999 Uni vers (NS) bolus 2-15 12-15 mL/hr, ity of infusion 22:00: 23:41 1,000 mL, [place] as 1,000 mL 00 :00 IV Medical Infusion, Branch ONCE, 1 dose, On [facility] 05/06/22 at 1600, JOE ondansetron 2021-05 No 8mg 8 mg, Slow Univers (ZOFRAN 2-15 12-15 IV Push, ity of (PF)) 21:15: 22:19 ONCE, 1 [place] injection 8 00 :00 dose, On Medi porfirio mg [facility] 05/06/22 at 1515, JOE ondansetron 2021-05 Yes [id number] 1-2 U nivers 4 mg tablet 2-15 tablets ity o f 00:00: every 8 [place] 00 hours as Medical needed for Branch nausea benzonatate 2021-05 Yes [id number] 200mg Take 1 Univers 200 mg 2-15 capsule by ity of capsule 00:00: mouth 3 (three) Medical times Branch daily as needed for Cough. albuterol 2021-05 Yes [id number] 2{puff} Inhale 2 Univers 90 2-15 Puffs ity of mcg/actuati 00:00: every 4 [place] as on inhaler 00 (four) Medical hours as Branch needed for Wheezing or Shortness of Breath. butalbital- 2021-05 Yes [id number] 1{tbl} Take 1 Univers acetaminoph 2-15 tablet by ity of en-caff 00:00: mouth [place] 50-325-40 00 every 4 Medical mg tablet (four) Branch hours as needed (headache) . ondansetron 2021-05 Yes [id number] 1-2 U nivers 4 mg tablet 2-15 tablets ity o f 00:00: every 8 [place] 00 hours as Medical needed for Branch nausea benzonatate 2021-05 Yes [id number] 200mg Take 1 Univers 200 mg 2-15 capsule by ity of capsule 00:00: mouth 3 (three) Medical times Branch daily as needed for Cough. albuterol 2021-05 Yes [id number] 2{puff} Inhale 2 Univers 90 2-15 Puffs ity of mcg/actuati 00:00: every 4 [place] on inhaler 00 (four) Medical hours as Branch needed for Wheezing or Shortness of Breath. butalbital- 2021-05 Yes [id number] 1{tbl} Take 1 Univers acetaminoph 2-15 tablet by ity of en-caff 00:00: mouth [place] 50-325-40 00 every 4 Medical mg tablet (four) Branch hours as needed (headache) . ondansetron 2021-05 Yes [id number] 1-2 U nivers 4 mg tablet 2-15 tablets ity o f 00:00: every 8 [place] 00 hours as Medical needed for Branch nausea benzonatate 2021-05 Yes [id number] 200mg Take 1 Univers 200 mg 2-15 capsule by ity of capsule 00:00: mouth 3 00 (three) Medical times Branch daily as needed for Cough. albuterol 2021-05 Yes [id number] 2{puff} Inhale 2 Univers 90 2-15 Puffs ity of mcg/actuati 00:00: every 4 [place] on inhaler 00 (four) Medical hours as Branch needed for Wheezing or Shortness of Breath. butalbital- 2021-05 Yes [id number] 1{tbl} Take 1 Univers acetaminoph 2-15 tablet by ity of en-caff 00:00: mouth [place] 50-325-40 00 every 4 Medical mg tablet (four) Branch hours as needed (headache) . ondansetron 2021-05 Yes [id number] 1-2 U nivers 4 mg tablet 2-15 tablets ity o f 00:00: every 8 [place] 00 hours as Medical needed for Branch nausea benzonatate 2021-05 Yes [id number] 200mg Take 1 Univers 200 mg 2-15 capsule by ity of capsule 00:00: mouth 3 [place] 00 (three) Medical times Branch daily as needed for Cough. albuterol 2021-05 Yes [id number] 2{puff} Inhale 2 Univers 90 2-15 Puffs ity of mcg/actuati 00:00: every 4 [place] on inhaler 00 (four) Medical hours as Branch needed for Wheezing or Shortness of Breath. butalbital- 2021-05 Yes [id number] 1{tbl} Take 1 Univers acetaminoph 2-15 tablet by ity of en-caff 00:00: mouth [place] 50-325-40 00 every 4 Medical mg tablet (four) Branch hours as needed (headache) . ondansetron 2021-05 Yes [id number] 1-2 U nivers 4 mg tablet 2-15 tablets ity o f 00:00: every 8 [place] 00 hours as Medical needed for Branch nausea benzonatate 2021-05 Yes [id number] 200mg Take 1 Univers 200 mg 2-15 capsule by ity of capsule 00:00: mouth 3 [place] 00 (three) Medical times Branch daily as needed for Cough. albuterol 2021-05 Yes [id number] 2{puff} Inhale 2 Univers 90 2-15 Puffs ity of mcg/actuati 00:00: every 4 [place] as on inhaler 00 (four) Medical hours as Branch needed for Wheezing or Shortness of Breath. butalbital- 2021-05 Yes [id number] 1{tbl} Take 1 Univers acetaminoph 2-15 tablet by ity of en-caff 00:00: mouth [place] 50-325-40 00 every 4 Medical mg tablet (four) Branch hours as needed (headache) . ondansetron 2021-05 Yes [id number] 1-2 U nivers 4 mg tablet 2-15 tablets ity o f 00:00: every 8 [place] 00 hours as Medical needed for Branch nausea benzonatate 2021-05 Yes [id number] 200mg Take 1 Univers 200 mg 2-15 capsule by ity of capsule 00:00: mouth 3 [place] 00 (three) Medical times Branch daily as needed for Cough. albuterol 2021-05 Yes [id number] 2{puff} Inhale 2 Univers 90 2-15 Puffs ity of mcg/actuati 00:00: every 4 [place] on inhaler 00 (four) Medical hours as Branch needed for Wheezing or Shortness of Breath. butalbital- 2021-05 Yes [id number] 1{tbl} Take 1 Univers acetaminoph 2-15 tablet by ity of en-caff 00:00: mouth [place] 50-325-40 00 every 4 Medical mg tablet (four) Branch hours as needed (headache) . ondansetron 2021-05 Yes [id number] 1-2 U nivers 4 mg tablet 2-15 tablets ity o f 00:00: every 8 [place] 00 hours as Medical needed for Branch nausea benzonatate 2021-05 Yes [id number] 200mg Take 1 Univers 200 mg 2-15 capsule by ity of capsule 00:00: mouth 3 00 (three) Medical times Branch daily as needed for Cough. albuterol 2021-05 Yes [id number] 2{puff} Inhale 2 Univers 90 2-15 Puffs ity of mcg/actuati 00:00: every 4 [place] on inhaler 00 (four) Medical hours as Branch needed for Wheezing or Shortness of Breath. butalbital- 2021-05 Yes [id number] 1{tbl} Take 1 Univers acetaminoph 2-15 tablet by ity of en-caff 00:00: mouth [place] 50-325-40 00 every 4 Medical mg tablet (four) Branch hours as needed (headache) . ondansetron 2021-05 Yes [id number] 1-2 U nivers 4 mg tablet 2-15 tablets ity o f 00:00: every 8 [place] 00 hours as Medical needed for Branch nausea benzonatate 2021-05 Yes [id number] 200mg Take 1 Univers 200 mg 2-15 capsule by ity of capsule 00:00: mouth 3 [place] 00 (three) Medical times Branch daily as needed for Cough. albuterol 2021-05 Yes [id number] 2{puff} Inhale 2 Univers 90 2-15 Puffs ity of mcg/actuati 00:00: every 4 [place] on inhaler 00 (four) Medical hours as Branch needed for Wheezing or Shortness of Breath. butalbital- 2021-05 Yes [id number] 1{tbl} Take 1 Univers acetaminoph 2-15 tablet by ity of en-caff 00:00: mouth [place] 50-325-40 00 every 4 Medical mg tablet (four) Branch hours as needed (headache) . ondansetron 2021-05 Yes [id number] 1-2 U nivers 4 mg tablet 2-15 tablets ity o f 00:00: every 8 [place] 00 hours as Medical needed for Branch nausea benzonatate 2021-05 Yes [id number] 200mg Take 1 Univers 200 mg 2-15 capsule by ity of capsule 00:00: mouth 3 00 (three) Medical times Branch daily as needed for Cough. albuterol 2021-05 Yes [id number] 2{puff} Inhale 2 Univers 90 2-15 Puffs ity of mcg/actuati 00:00: every 4 [place] on inhaler 00 (four) Medical hours as Branch needed for Wheezing or Shortness of Breath. butalbital- 2021-05 Yes [id number] 1{tbl} Take 1 Univers acetaminoph 2-15 tablet by ity of en-caff 00:00: mouth [place] 50-325-40 00 every 4 Medical mg tablet (four) Branch hours as needed (headache) . ondansetron 2021-05 Yes [id number] 1-2 U nivers 4 mg tablet 2-15 tablets ity o f 00:00: every 8 [place] 00 hours as Medical needed for Branch nausea benzonatate 2021-05 Yes [id number] 200mg Take 1 Univers 200 mg 2-15 capsule by ity of capsule 00:00: mouth 3 [place] 00 (three) Medical times Branch daily as needed for Cough. albuterol 2021-05 Yes [id number] 2{puff} Inhale 2 Univers 90 2-15 Puffs ity of mcg/actuati 00:00: every 4 [place] on inhaler 00 (four) Medical hours as Branch needed for Wheezing or Shortness of Breath. butalbital- 2021-05 Yes [id number] 1{tbl} Take 1 Univers acetaminoph 2-15 tablet by ity of en-caff 00:00: mouth [place] 50-325-40 00 every 4 Medical mg tablet (four) Branch hours as needed (headache) . [facility] 2021-05- No [id number] 2{tbl} Take 2 Univers r-ritonavir 2-15 12-21 tablets by i ty of (PAXLOVID, 00:00: 05:59 mouth in [place] EUA,) 300 00 :00 the Medical mg (150 mg morning Branch x 2)-100 mg and 2 tablet tablets in the evening. Do all this for 5 days. [facility] 2021-05- No [id number] 2{tbl} Take 2 Univers r-ritonavir 2-15 12-21 tablets by i ty of (PAXLOVID, 00:00: 05:59 [place] EUA,) 300 00 :00 the Medical mg (150 mg morning Branch x 2)-100 mg and 2 tablet tablets in the evening. Do all this for 5 days. [facility] 2021-05- No [id number] 2{tbl} Take 2 Univers r-ritonavir 2-15 12-21 tablets by i ty of (PAXLOVID, 00:00: 05:59 [place] EUA[place] 300 00 :00 the Medical mg (150 mg morning Branch x 2)-100 mg and 2 tablet tablets in the evening. Do all this for 5 days. [facility] 2021-05- No [id number] 2{tbl} Take 2 Univers r-ritonavir 2-15 12-21 [...] 04/22/22 at 1645, Routine amoxicillin 2021-05 Yes [id number] 1{tbl} Take 1 Univers -clavulanat 2-01 [id number] tablet by i ty of e 875-125 00:00: mouth [place] mg per 00 every 12 Medical tablet (twelve) Branch hours. ondansetron 2021-05 Yes [id number] 4mg Take 1 Univers 4 mg 2- [id number] tablet by ity of disintegrat 00:00: mouth [place] ing tablet 00 every 8 Medica l (eight) Branch hours as needed for Nausea and Vomiting (N/V). amoxicillin 2021-05 Yes [id number] 1{tbl} Take 1 Univers -clavulanat 2- 186039 tablet by i ty of e 875-125 00:00: mouth [place] mg per 00 every 12 Medical tablet (twelve) Branch hours. ondansetron 2021-05 Yes [id number] 4mg Take 1 Univers 4 mg 2- [id number] tablet by ity of disintegrat 00:00: mouth [place] ing tablet 00 every 8 Medica l (eight) Branch hours as needed for Nausea and Vomiting (N/V). amoxicillin 2021-05 Yes [id number] 1{tbl} Take 1 Univers -clavulanat 2-01 [id number] tablet by i ty of e 875-125 00:00: mouth [place] mg per 00 every 12 Medical tablet (twelve) Branch hours. ondansetron 2021-05 Yes [id number] 4mg Take 1 Univers 4 mg 2-01 [id number] tablet by ity of disintegrat 00:00: mouth [place] ing tablet 00 every 8 Medica l (eight) Branch hours as needed for Nausea and Vomiting (N/V). amoxicillin 2021-05 Yes [id number] 1{tbl} Take 1 Univers -clavulanat 2-01 [id number] tablet by i ty of e 875-125 00:00: mouth [place] mg per 00 every 12 Medical tablet (twelve) Branch hours. ondansetron 2021-05 Yes [id number] 4mg Take 1 Univers 4 mg 2-01 [id number] tablet by ity of disintegrat 00:00: mouth [place] ing tablet 00 every 8 Medica l (eight) Branch hours as needed for Nausea and Vomiting (N/V). amoxicillin 2021-05 Yes [id number] 1{tbl} Take 1 Univers -clavulanat 2-01 [id number] tablet by i ty of e 875-125 00:00: mouth [place] mg per 00 every 12 Medical tablet (twelve) Branch hours. ondansetron 2021-05 Yes [id number] 4mg Take 1 Univers 4 mg 2-01 [id number] tablet by ity of disintegrat 00:00: mouth [place] ing tablet 00 every 8 Medica l (eight) Branch hours as needed for Nausea and Vomiting (N/V). amoxicillin 2021-05 Yes [id number] 1{tbl} Take 1 Univers -clavulanat 2-01 [id number] tablet by i ty of e 875-125 00:00: mouth [place] mg per 00 every 12 Medical tablet (twelve) Branch hours. ondansetron 2021-05 Yes [id number] 4mg Take 1 Univers 4 mg 2- [id number] tablet by ity of disintegrat 00:00: mouth [place] ing tablet 00 every 8 Medica l (eight) Branch hours as needed for Nausea and Vomiting (N/V). amoxicillin 2021-05 Yes [id number] 1{tbl} Take 1 Univers -clavulanat 2-01 [id number] tablet by i ty of e 875-125 00:00: mouth [place] mg per 00 every 12 Medical tablet (twelve) Branch hours. ondansetron 2021-05 Yes [id number] 4mg Take 1 Univers 4 mg 2-01 [id number] tablet by ity of disintegrat 00:00: mouth [place] ing tablet 00 every 8 Medica l (eight) Branch hours as needed for Nausea and Vomiting (N/V). amoxicillin 2021-05 Yes [id number] 1{tbl} Take 1 Univers -clavulanat 2-01 [id number] tablet by i ty of e 875-125 00:00: mouth [place] mg per 00 every 12 Medical tablet (twelve) Branch hours. ondansetron 2021-05 Yes [id number] 4mg Take 1 Univers 4 mg 2-01 [id number] tablet by ity of disintegrat 00:00: mouth [place] ing tablet 00 every 8 Medica l (eight) Branch hours as needed for Nausea and Vomiting (N/V). amoxicillin 2021-05 Yes [id number] 1{tbl} Take 1 Univers -clavulanat 2-01 [id number] tablet by i ty of e 875-125 00:00: mouth [place] mg per 00 every 12 Medical tablet (twelve) Branch hours. ondansetron 2021-05 Yes [id number] 4mg Take 1 Univers 4 mg 2- [id number] tablet by ity of disintegrat 00:00: mouth [place] ing tablet 00 every 8 Medica l (eight) Branch hours as needed for Nausea and Vomiting (N/V). amoxicillin 2021-05 Yes [id number] 1{tbl} Take 1 Univers -clavulanat 2-01 [id number] tablet by i ty of e 875-125 00:00: mouth [place] mg per 00 every 12 Medical tablet (twelve) Branch hours. ondansetron 2021-05 Yes [id number] 4mg Take 1 Univers 4 mg 2- [id number] tablet by ity of disintegrat 00:00: mouth [place] ing tablet 00 every 8 Medica l (eight) Branch hours as needed for Nausea and Vomiting (N/V). amoxicillin 2021-05 Yes [id number] 1{tbl} Take 1 Univers -clavulanat 2-01 [id number] tablet by i ty of e 875-125 00:00: mouth [place] mg per 00 every 12 Medical tablet (twelve) Branch hours. ondansetron 2021-05 Yes [id number] 4mg Take 1 Univers 4 mg 2- 864612 tablet by ity of disintegrat 00:00: mouth [place] ing tablet 00 every 8 Medica l (eight) Branch hours as needed for Nausea and Vomiting (N/V). amoxicillin 2021-05 Yes [id number] 1{tbl} Take 1 Univers -clavulanat 2-01 [id number] tablet by i ty of e 875-125 00:00: mouth [place] mg per 00 every 12 Medical tablet (twelve) Branch hours. ondansetron 2021-05 Yes [id number] 4mg Take 1 Univers 4 mg 2-01 [id number] tablet by ity of disintegrat 00:00: mouth [place] ing tablet 00 every 8 Medica l (eight) Branch hours as needed for Nausea and Vomiting (N/V). zoster 2021-05- No [id number] .5mL 0.5 mL by Univers vaccine, 0-05 03- 9104 Intramuscu ity of recombinant 00:00: 04:59 lar route [place] (SHINGRIX, 00 :00 once now Medic al PF,) for 1 Branch injection dose. And repeat in 2-6 months zoster 2021-05- No [id number] .5mL 0.5 mL by Univers vaccine, 0-05 03- 9104 Intramuscu ity of recombinant 00:00: 04:59 lar route [place] (SHINGRIX, 00 :00 once now Medic al PF,) for 1 Branch injection dose. And repeat in 2-6 months zoster 2021-05- No [id number] .5mL 0.5 mL by Univers vaccine, 0-05 [...] o f 1 mg tablet 19:28: at [place] [address] bedtime. Medical Branch traZODone 0 Yes 50mg Take 50 mg Un matt 100 mg 9-27 by mouth ity of tablet 19:28: at [place] [address] bedtime. Medical Branch hydralAZINE 2021-0 Yes 25mg [...] o f 1 mg tablet 19:28: at [place] [address] bedtime. Medical Branch traZODone 2021-0 Yes 50mg Take 50 mg Un matt 100 mg 9-27 by mouth ity of tablet 19:28: at [place] [address] bedtime. Medical Branch hydralAZINE 2021-0 Yes 25mg [...] o f 1 mg tablet 19:28: at [place] [address] bedtime. Medical Branch traZODone 2-0 Yes 50mg Take 50 mg Un matt 100 mg 9-27 by mouth ity of tablet 19:28: at [place] [address] bedtime. Medical Branch hydralAZINE 2-0 Yes 25mg [...] o f 1 mg tablet 19:28: at [place] [address] bedtime. Medical Branch traZODone 2021-0 Yes 50mg Take 50 mg Un matt 100 mg 9-27 by mouth ity of tablet 19:28: at [place] [address] bedtime. Medical Branch hydralAZINE 2021-0 Yes 25mg [...] o f 1 mg tablet 19:28: at [place] [address] bedtime. Medical Branch traZODone 2021-0 Yes 50mg Take 50 mg Un matt 100 mg 9-27 by mouth ity of tablet 19:28: at [place] [address] bedtime. Medical Branch hydralAZINE 2021-0 Yes 25mg [...] o f 1 mg tablet 19:28: at [place] [address] bedtime. Medical Branch traZODone 2021-0 Yes 50mg Take 50 mg Un matt 100 mg 9-27 by mouth ity of tablet 19:28: at [place] [address] bedtime. Medical Branch hydralAZINE 2021-0 Yes 25mg [...] o f 1 mg tablet 19:28: at [place] [address] bedtime. Medical Branch traZODone 2021-0 Yes 50mg Take 50 mg Un matt 100 mg 9-27 by mouth ity of tablet 19:28: at [place] [address] bedtime. Medical Branch hydralAZINE 2021-0 Yes 25mg [...] o f 1 mg tablet 19:28: at [place] [address] bedtime. Medical Branch traZODone 2021-0 Yes 50mg Take 50 mg Un matt 100 mg 9- by mouth ity of tablet 19:28: at [place] [address] bedtime. Medical Branch hydralAZINE 2021-0 Yes 25mg [...] o f 1 mg tablet 19:28: at [place] [address] bedtime. Medical Branch traZODone 2-0 Yes 50mg Take 50 mg Un matt 100 mg 9-27 by mouth ity of tablet 19:28: at [place] [address] bedtime. Medical Branch hydralAZINE 2021-0 Yes 25mg [...] 100 mg 04 (two) Medical tablet times [place] daily. amLODIPine 2021-0 Yes 10mg Take 10 mg U nivers (NORVASC) 9- by mouth ity of 10 mg 19:28: daily. [place] tablet 04 Medical Branch clonazePAM 2021-0 Yes 1mg Take 1 mg Un matt (KLONOPIN) 9-27 by mouth ity o f 1 mg tablet 19:28: at [place] [address] bedtime. Medical Branch traZODone 2-0 Yes 50mg Take 50 mg Un matt 100 mg 9-27 by mouth ity of tablet 19:28: at [place] [address] bedtime. Medical Branch hydralAZINE 2-0 Yes 25mg [...] o f 1 mg tablet 19:28: at [place] [address] bedtime. Medical Branch traZODone 2021-0 Yes 50mg Take 50 mg Un matt 100 mg 9-27 by mouth ity of tablet 19:28: at [place] [address] bedtime. Medical Branch hydralAZINE 2021-0 Yes 25mg [...] o f 1 mg tablet 19:28: at [place] [address] bedtime. Medical Branch traZODone 2021-0 Yes 50mg Take 50 mg Un matt 100 mg 9-27 by mouth ity of tablet 19:28: at [place] [address] bedtime. Medical Branch hydralAZINE 2021-0 Yes 25mg [...] o f 1 mg tablet 19:28: at [place] [address] bedtime. Medical Branch traZODone 2021-0 Yes 50mg Take 50 mg Un matt 100 mg 9- by mouth ity of tablet 19:28: at [place] [address] bedtime. Medical Branch hydralAZINE 2021-0 Yes 25mg [...] o f 1 mg tablet 19:28: at [place] [address] bedtime. Medical Branch traZODone 2022-0 Yes 50mg Take 50 mg Un matt 100 mg 9-27 by mouth ity of tablet 19:28: at [place] [address] bedtime. Medical Branch hydralAZINE 2-0 Yes 25mg [...] o f 1 mg tablet 19:28: at [place] [address] bedtime. Medical Branch traZODone 2-0 Yes 50mg Take 50 mg Un matt 100 mg 9-27 by mouth ity of tablet 19:28: at [place] [address] bedtime. Medical Branch hydralAZINE 2021-0 Yes 25mg [...] o f 1 mg tablet 19:28: at [place] [address] bedtime. Medical Branch traZODone 2022-0 Yes 50mg Take 50 mg Un matt 100 mg 9-27 by mouth ity of tablet 19:28: at [place] [address] bedtime. Medical Branch hydralAZINE 2-0 Yes 25mg [...] o f 1 mg tablet 19:28: at [place] [address] bedtime. Medical Branch traZODone 2-0 Yes 50mg Take 50 mg Un matt 100 mg 9-27 by mouth ity of tablet 19:28: at [place] [address] bedtime. Medical Branch hydralAZINE 2-0 Yes 25mg [...] by mouth ity of tablet 19:28: at [place] [address] bedtime. Medical Branch hydralAZINE 2021-0 Yes 25mg [...] o f 1 mg tablet 19:28: at [place] [address] bedtime. Medical Branch traZODone 2021-0 Yes 50mg Take 50 mg Un matt 100 mg 9-27 by mouth ity of tablet 19:28: at [place] [address] bedtime. Medical Branch hydralAZINE 2021-0 Yes 25mg [...] o f 1 mg tablet 19:28: at [place] [address] bedtime. Medical Branch traZODone Yes 50mg Take 50 mg Un matt 100 mg 02-16 by mouth ity of tablet 19:28: at [place] [address] bedtime. [facility] Branch cefpodoxime 2021- No [id number] 200mg Take 1 [facility] 200 mg 02-16 tablet by ity of tablet 00:00: 04:59 mouth in [place] 00 :00 the Medical morning Branch and 1 tablet in the evening. Do all this for 3 days. cefpodoxime 2021- No [id number] 200mg Take 1 [facility] 200 mg 02-16 tablet by ity of tablet 00:00: 04:59 mouth in [place] 00 :00 the [facility] and 1 tablet in the evening. Do all this for 3 days. haloperidol 2021- No 2mg 2 mg, Slow Univers lactate 02-15 IV Push, ity of (HALDOL) 09:00: 09:12 ONCE, 1 [place] injection 2 00 :00 dose, On Medi porfirio mg Mon [place] 02/15/22 at 0400, Routine hydroCHLORO Yes 25mg 25 mg, Univ ers thiazide 9-25 Oral, ity of (ESIDRIX) 14:00: DAILY, [place] capsule 25 00 First dose Med ical mg on [place] [facility] 02/14/22 at 0900, Until Discontinu ed, Routine butalbital- Yes 1{tbl} 1 tablet, [facility] acetaminoph 24 Oral, ity of en-caff 18:46: Q6HPRN, [place] (ESGIC) 06 Starting Medical 50-325-40 on [facility] Branch mg tablet 1 02/13/22 [...] of 2,000 mg in 17:00: 18:24 Piggyback, [place] NaCl 0.9% 00 :00 Q24H ABX, Medic [...] Routine emtricitabi 0 Yes 1{tbl} 1 tablet, [facility] Oral, ity of r alafen 18:00: DAILY, [place] (DESCOVY) 00 First dose Medi porfirio tablet 1 on [facility] tablet 02/11/22 at 1300, Until Discontinu ed, Routine ipratropium 0 Yes .5mg 0.5 mg, Uni vers (ATROVENT) 02-11 Inhalation ity of 0.02 % 17:57: , QIDPRN, [place] nebulizer 10 Starting Medica l solution on [...] :24 Starting Medi porfirio tablet 1 on [facility] Branch tablet 02/11/22 at 0911, Until Tue02/12/22 at 1237, Routine, Pain (scale 7-10) melatonin Yes 3mg 3 mg, Univers (MELATIN) 02-11 Oral, ity of tablet 3 mg 14:08: QHSPRN, [place] as 17 Starting Medical on [facility] Branch 02/11/22 at 0908, Until Discontinu ed, Routine, Insomnia acetaminoph 2021- No 1{tbl} 1 tablet, Univers en-codeine 02-11 Oral, ity of (TYLENOL 14:06: 17:37 [facility] [place] #[facility]) 300-30 19 :24 Starting Medic al mg tablet 1 on [facility] tablet 02/11/22 at 0906, Until Tue02/12/22 at 1237, Routine, Pain (scale 4-6) sennosides- Yes 1{tbl} 1 tablet, Univers docusate 02-11 Oral, ity of sodium 14:06: QDAILYPRN, [place] (SENOKOT-S) 09 Starting Medi porfirio 8.6-50 mg on [facility] per tablet 02/11/22 at 1 tablet 0906, Until Discontinu ed, Routine, Constipati on ondansetron 0 Yes 4mg 4 mg, Slow Univers (ZOFRAN 02-11 IV Push, ity of (PF)) 14:05: Q6HPRNRichmond, [place] injection 4 59 Starting Medi porfirio mg on [facility] Branch 02/11/22 at 0905, Until Discontinu ed, Routine, Nausea and Vomiting (N/V) acetaminoph Yes 650mg 650 mg, Un matt en 02-11 Oral, ity of (TYLENOL) 14:04: Q6HPRN, [place] tablet 650 37 Starting Medic al mg [...] ity of ) 25 mg 09:10: daily. [facility] 54 Medical Branch amLODIPine 0 Yes 10mg Take 10 mg U nivers (NORVASC) 02-11 by mouth ity of 10 mg 09:10: daily. [facility] 54 [facility] Branch piperacilli 2021- No 3.375g 3.375 [...] of therapy: 72 hours iopamidol 2021- No [id number] 60mL 60 mL, Univers (ISOVUE 02-11 Intravenou [...] 02/11/22 at 0015, JOE emtricitabi 0 Yes [id number] Take one Univers ne-tenofovi 9-12 po daily ity of r alafen 00:00: [place] (DESCOVY) Medical tablet Branch emtricitabi Yes [id number] Take one Univers ne-tenofovi 9-12 po daily ity of r alafen 00:00: [place] (DESCOVY) 00 Medical tablet Branch emtricitabi Yes [id number] Take one Univers ne-tenofovi 9-12 po daily ity of r alafen 00:00: [place] (DESCOVY) 00 Medical tablet Branch emtricitabi Yes [id number] Take one Univers ne-tenofovi 9-12 po daily ity of r alafen 00:00: [place] (DESCOVY) 00 Medical tablet Branch emtricitabi Yes [id number] Take one Univers ne-tenofovi 9-12 po daily ity of r alafen 00:00: [place] (DESCOVY) 00 Medical tablet Branch emtricitabi Yes [id number] Take one Univers ne-tenofovi 9-12 po daily ity of r alafen 00:00: [place] (DESCOVY) 00 Medical tablet Branch [facility] Yes [id number] Take one Univers ne-tenofovi 9-12 po daily ity of r alafen 00:00: [place] (DESCOVY) 00 Medical tablet Branch emtricita Yes [id number] Take one Univers ne-tenofovi 9-12 po daily ity of r alafen 00:00: [place] (DESCOVY) 00 Medical tablet Branch emtricita Yes [id number] Take one Univers ne-tenofovi 9-12 po daily ity of r alafen 00:00: [place] (DESCOVY) 00 Medical tablet Branch emtricita Yes [id number] Take one Univers ne-tenofovi 9-12 po daily ity of r alafen 00:00: [place] (DESCOVY) 00 Medical tablet [facility] [id number] Take one Univers ne-tenofovi 9-12 po daily ity of r alafen 00:00: [place] (DESCOVY) 00 Medical tablet Branch [facility] Yes [id number] Take one Univers ne-tenofovi 9-12 po daily ity of r alafen 00:00: [place] (DESCOVY) 00 Medical tablet Branch [facility] Yes [id number] Take one Univers ne-tenofovi 9-12 po daily ity of r alafen 00:00: [place] (DESCOVY) 00 Medical tablet Branch emtricita Yes [id number] Take one Univers ne-tenofovi 9-12 po daily ity of r alafen 00:00: [place] (DESCOVY) 00 Medical tablet Branch emtricita Yes [id number] Take one Univers ne-tenofovi 9-12 po daily ity of r alafen 00:00: [place] (DESCOVY) 00 Medical tablet Branch emtricita Yes [id number] Take one Univers ne-tenofovi 9-12 po daily ity of r alafen 00:00: [place] (DESCOVY) 00 Medical tablet Branch emtricita Yes [id number] Take one Univers ne-tenofovi 9-12 po daily ity of r alafen 00:00: [place] (DESCOVY) 00 Medical tablet Branch emtricitabi 2022- No [id number] Take one Univers ne-tenofovi 02-01-04 po daily ity of r alafen 00:00: 00:00 [place] (DESCOVY) 00 :00 Medical tablet Branch emtricitabi 2021-0 3- No [id number] Take one Univers ne-arianofovi 02-01- po daily ity of r alafen 00:00: 00:00 [place] (DESCOVY) 00 :00 Medical tablet Branch naproxen 2021-0 Yes [id number] 500mg Take 1 U nivers (NAPROSYN) 7-24 tablet by ity of 500 mg 00:00: mouth in [place] tablet 00 the Medical morning Branch and 1 tablet in the evening. Take with meals. methocarbam 2021-0 Yes [id number] 500mg Take 1 Univers oL 500 mg 7-24 tablet by ity o f tablet 00:00: mouth 4 [place] ([facility]) Medical times [place] daily. naproxen 2021-0 Yes [id number] 500mg Take 1 U nivers (NAPROSYN) 7-24 tablet by ity of 500 mg 00:00: mouth in [place] tablet 00 the Medical morning Branch and 1 tablet in the evening. Take with meals. methocarbam 2021-0 Yes [id number] 500mg Take 1 Univers oL 500 mg 7-24 tablet by ity o f tablet 00:00: mouth 4 [place] ([facility]) Medical times Branch daily. naproxen 2-0 Yes [id number] 500mg Take 1 U nivers (NAPROSYN) 7-24 tablet by ity of 500 mg 00:00: mouth in [place] tablet 00 the Medical morning Branch and 1 tablet in the evening. Take with meals. methocarbam 2022-0 Yes [id number] 500mg Take 1 Univers oL 500 mg 7-24 tablet by ity o f tablet 00:00: mouth 4 [place] ([facility]) Medical times Branch daily. naproxen 2-0 2022- No [id number] 500mg Take 1 Univers (NAPROSYN) 7-24 10-14 tablet by ity of 500 mg 00:00: 00:00 mouth in [place] tablet 00 :00 the Medical morning Branch and 1 tablet in the evening. Take with meals. methocarbam 2021- No [id number] 500mg Take 1 Univers oL 500 mg 12-13 tablet by ity of tablet 00:00: 00:00 mouth 4 [place] 00 :00 (four) Medical times Branch daily. naproxen 2021- No [id number] 500mg Take 1 Univers (NAPROSYN) 12-13 tablet by ity of 500 mg 00:00: 00:00 mouth in [place] tablet 00 :00 the Medical morning Branch and 1 tablet in the evening. Take with meals. methocarbam 2021- No [id number] 500mg Take 1 Univers oL 500 mg 12-13 tablet by ity of tablet 00:00: 00:00 mouth 4 [place] 00 :00 (four) Medical times Branch daily. esomeprazol 2021- No 40mg Take 40 mg Univers e (NEXIUM) 11-20 by mouth 2 it y of 40 mg 09:12: 00:00 (two) [place] capsule 03 :00 times Medical daily. Branch amiodarone No 100mg Take 100 U nivers 100 mg 11-20 mg by ity of tablet 09:11: 00:00 mouth [place] 57 :00 daily. Medical Branch apixaban No 5mg Take 5 mg Uni vers (ELIQUIS) 5 11-20 by mouth 2 i ty of mg tablet 09:11: 00:00 (two) [place] 35 :00 times Medical daily. Branch traZODONE 2021- No Take by [place] [facility] ers (DESYREL) 11-20 mouth at ity o f 10 mg/mL 09:10: 00:00 [place]time. [place] oral 28 :00 Medical suspension Branch hydralAZINE Yes 25mg Take 25 mg Univers (APRESOLINE 11-20 by mouth ity of ) 25 mg 08:47: daily. [place] tablet 47 Medical Branch cephALEXin 2021- No [id number] 500mg Take 1 Univers (KEFLEX) 10-24 capsule [...] 7-10). Indication s: acute pain buPROPion Yes [id number] 150mg Take 1 U nivers XL 4-12 tablet by ity of (WELLBUTRIN 00:00: mouth [place] XL) 150 mg 00 daily. Medical 24 hr Branch tablet busPIRone Yes [id number] 30mg Take 1 Un matt 30 mg 4-12 tablet by ity of tablet 00:00: mouth 2 [place] 00 (two) Medical times Branch daily. SERTraline Yes [id number] 200mg Take 2 Univers 100 mg 4-12 tablets by ity of tablet 00:00: mouth [place] 00 daily. Medical Branch buPROPion Yes [id number] 150mg Take 1 U nivers XL 4-12 tablet by ity of (WELLBUTRIN 00:00: mouth [place] XL) 150 mg 00 daily. Medical 24 hr Branch tablet busPIRone 2021-0 Yes [id number] 30mg Take 1 Un matt 30 mg 4-12 tablet by ity of tablet 00:00: mouth 2 [place] 00 (two) Medical times Branch daily. SERTraline 2021-0 Yes [id number] 200mg Take 2 Univers 100 mg 4-12 tablets by ity of tablet 00:00: mouth [place] 00 daily. Medical Branch buPROPion 2021-0 Yes [id number] 150mg Take 1 U nivers XL 4-12 tablet by ity of (WELLBUTRIN 00:00: mouth [place] XL) 150 mg 00 daily. Medical 24 hr Branch tablet busPIRone 2021-0 Yes [id number] 30mg Take 1 Un matt 30 mg 4-12 tablet by ity of tablet 00:00: mouth 2 [place] 00 (two) Medical times Branch daily. SERTraline 2021-0 Yes [id number] 200mg Take 2 Univers 100 mg 4-12 tablets by ity of tablet 00:00: mouth [place] 00 daily. Medical Branch buPROPion 2021-0 Yes [id number] 150mg Take 1 U nivers XL 4-12 tablet by ity of (WELLBUTRIN 00:00: mouth [place] XL) 150 mg 00 daily. Medical 24 hr Branch tablet busPIRone 2021-0 Yes [id number] 30mg Take 1 Un matt 30 mg 4-12 tablet by ity of tablet 00:00: mouth 2 [place] 00 (two) Medical times Branch daily. SERTraline 2021-0 Yes [id number] 200mg Take 2 Univers 100 mg 4-12 tablets by ity of tablet 00:00: mouth [place] 00 daily. Medical Branch buPROPion 2021-0 Yes [id number] 150mg Take 1 U nivers XL 4-12 tablet by ity of (WELLBUTRIN 00:00: mouth [place] XL) 150 mg 00 daily. Medical 24 hr Branch tablet busPIRone 2021-0 Yes [id number] 30mg Take 1 Un matt 30 mg 4-12 tablet by ity of tablet 00:00: mouth 2 [place] 00 (two) Medical times Branch daily. SERTraline 2021-0 Yes [id number] 200mg Take 2 Univers 100 mg 4-12 tablets by ity of tablet 00:00: mouth [place] 00 daily. Medical Branch buPROPion 2021-0 Yes [id number] 150mg Take 1 U nivers XL 4-12 tablet by ity of (WELLBUTRIN 00:00: mouth [place] XL) 150 mg 00 daily. Medical 24 hr Branch tablet busPIRone 2021-0 Yes [id number] 30mg Take 1 Un matt 30 mg 4-12 tablet by ity of tablet 00:00: mouth 2 [place] 00 (two) Medical times Branch daily. SERTraline 2021-0 Yes [id number] 200mg Take 2 Univers 100 mg 4-12 tablets by ity of tablet 00:00: mouth [place] 00 daily. Medical Branch buPROPion 2021-0 Yes [id number] 150mg Take 1 U nivers XL 4-12 tablet by ity of (WELLBUTRIN 00:00: mouth [place] XL) 150 mg 00 daily. Medical 24 hr Branch tablet busPIRone 2021-0 Yes [id number] 30mg Take 1 Un matt 30 mg 4-12 tablet by ity of tablet 00:00: mouth 2 [place] 00 (two) Medical times Branch daily. SERTraline 2021-0 Yes [id number] 200mg Take 2 Univers 100 mg 4-12 tablets by ity of tablet 00:00: mouth [place] 00 daily. Medical Branch buPROPion 2021-0 Yes [id number] 150mg Take 1 U nivers XL 4-12 tablet by ity of (WELLBUTRIN 00:00: mouth [place] XL) 150 mg 00 daily. Medical 24 hr Branch tablet busPIRone 2021-0 Yes [id number] 30mg Take 1 Un matt 30 mg 4-12 tablet by ity of tablet 00:00: mouth 2 [place] 00 (two) Medical times Branch daily. SERTraline 2021-0 Yes [id number] 200mg Take 2 Univers 100 mg 4-12 tablets by ity of tablet 00:00: mouth [place] 00 daily. Medical Branch buPROPion 2021-0 Yes [id number] 150mg Take 1 U nivers XL 4-12 tablet by ity of (WELLBUTRIN 00:00: mouth [place] XL) 150 mg 00 daily. Medical 24 hr Branch tablet busPIRone 2021-0 Yes [id number] 30mg Take 1 Un matt 30 mg 4-12 tablet by ity of tablet 00:00: mouth 2 [place] 00 (two) Medical times Branch daily. SERTraline 2021-0 Yes [id number] 200mg Take 2 Univers 100 mg 4-12 tablets by ity of tablet 00:00: mouth [place] 00 daily. Medical Branch buPROPion 2021-0 Yes [id number] 150mg Take 1 U nivers XL 4-12 tablet by ity of (WELLBUTRIN 00:00: mouth [place] XL) 150 mg 00 daily. Medical 24 hr Branch tablet busPIRone 2021-0 Yes [id number] 30mg Take 1 Un matt 30 mg 4-12 tablet by ity of tablet 00:00: mouth 2 [place] 00 (two) Medical times Branch daily. SERTraline 2021-0 Yes [id number] 200mg Take 2 Univers 100 mg 4-12 tablets by ity of tablet 00:00: mouth [place] 00 daily. Medical Branch buPROPion 2021-0 Yes [id number] 150mg Take 1 U nivers XL 4-12 tablet by ity of (WELLBUTRIN 00:00: mouth [place] XL) 150 mg 00 daily. Medical 24 hr Branch tablet busPIRone 2021-0 Yes [id number] 30mg Take 1 Un matt 30 mg 4-12 tablet by ity of tablet 00:00: mouth 2 [place] 00 (two) Medical times Branch daily. SERTraline 2021-0 Yes [id number] 200mg Take 2 Univers 100 mg 4-12 tablets by ity of tablet 00:00: mouth [place] 00 daily. Medical Branch buPROPion 2021-0 Yes [id number] 150mg Take 1 U nivers XL 4-12 tablet by ity of (WELLBUTRIN 00:00: mouth [place] XL) 150 mg 00 daily. Medical 24 hr Branch tablet busPIRone 2021-0 Yes [id number] 30mg Take 1 Un matt 30 mg 4-12 tablet by ity of tablet 00:00: mouth 2 [place] 00 (two) Medical times Branch daily. SERTraline 2021-0 Yes [id number] 200mg Take 2 Univers 100 mg 4-12 tablets by ity of tablet 00:00: mouth [place] 00 daily. Medical Branch buPROPion 2021-0 Yes [id number] 150mg Take 1 U nivers XL 4-12 tablet by ity of (WELLBUTRIN 00:00: mouth [place] XL) 150 mg 00 daily. Medical 24 hr Branch tablet busPIRone 2021-0 Yes [id number] 30mg Take 1 Un matt 30 mg 4-12 tablet by ity of tablet 00:00: mouth 2 [place] 00 (two) Medical times Branch daily. SERTraline 2021-0 Yes [id number] 200mg Take 2 Univers 100 mg 4-12 tablets by ity of tablet 00:00: mouth [place] 00 daily. Medical Branch buPROPion 2021-0 Yes [id number] 150mg Take 1 U nivers XL 4-12 tablet by ity of (WELLBUTRIN 00:00: mouth [place] XL) 150 mg 00 daily. Medical 24 hr Branch tablet busPIRone 2021-0 Yes [id number] 30mg Take 1 Un matt 30 mg 4-12 tablet by ity of tablet 00:00: mouth 2 [place] 00 (two) Medical times Branch daily. SERTraline 2021-0 Yes [id number] 200mg Take 2 Univers 100 mg 4-12 tablets by ity of tablet 00:00: mouth [place] 00 daily. Medical Branch buPROPion 2021-0 Yes [id number] 150mg Take 1 U nivers XL 4-12 tablet by ity of (WELLBUTRIN 00:00: mouth [place] XL) 150 mg 00 daily. Medical 24 hr Branch tablet busPIRone 2021-0 Yes [id number] 30mg Take 1 Un matt 30 mg 4-12 tablet by ity of tablet 00:00: mouth 2 00 (two) Medical times Branch daily. SERTraline 2021-0 Yes [id number] 200mg Take 2 Univers 100 mg 4-12 tablets by ity of tablet 00:00: mouth [place] 00 daily. Medical Branch buPROPion 2021-0 Yes [id number] 150mg Take 1 U nivers XL 4-12 tablet by ity of (WELLBUTRIN 00:00: mouth [place] XL) 150 mg 00 daily. Medical 24 hr Branch tablet busPIRone 2021-0 Yes [id number] 30mg Take 1 Un matt 30 mg 4-12 tablet by ity of tablet 00:00: mouth 2 (two) Medical times Branch daily. SERTraline 2021-0 Yes [id number] 200mg Take 2 Univers 100 mg 4-12 tablets by ity of tablet 00:00: mouth [place] 00 daily. Medical Branch buPROPion 2021-0 Yes [id number] 150mg Take 1 U nivers XL 4-12 tablet by ity of (WELLBUTRIN 00:00: mouth [place] XL) 150 mg 00 daily. Medical 24 hr Branch tablet busPIRone 2021-0 Yes [id number] 30mg Take 1 Un matt 30 mg 4-12 tablet by ity of tablet 00:00: mouth 2 (two) Medical times Branch daily. SERTraline 2021-0 Yes [id number] 200mg Take 2 Univers 100 mg 4-12 tablets by ity of tablet 00:00: mouth [place] 00 daily. Medical Branch buPROPion 2021-0 Yes [id number] 150mg Take 1 U nivers XL 4-12 tablet by ity of (WELLBUTRIN 00:00: mouth [place] XL) 150 mg 00 daily. Medical 24 hr Branch tablet busPIRone 2021-0 Yes [id number] 30mg Take 1 Un matt 30 mg 4-12 tablet by ity of tablet 00:00: mouth 2 (two) Medical times Branch daily. SERTraline 2021-0 Yes [id number] 200mg Take 2 Univers 100 mg 4-12 tablets by ity of tablet 00:00: mouth [place] 00 daily. Medical Branch buPROPion 2021-0 Yes [id number] 150mg Take 1 U nivers XL 4-12 tablet by ity of (WELLBUTRIN 00:00: mouth [place] XL) 150 mg 00 daily. Medical 24 hr Branch tablet busPIRone 2021-0 Yes [id number] 30mg Take 1 Un matt 30 mg 4-12 tablet by ity of tablet 00:00: mouth 2 [place] 00 (two) Medical times Branch daily. SERTraline 2021-0 Yes [id number] 200mg Take 2 Univers 100 mg 4-12 tablets by ity of tablet 00:00: mouth [place] 00 daily. Medical Branch buPROPion 2021-0 Yes [id number] 150mg Take 1 U nivers XL 4-12 tablet by ity of (WELLBUTRIN 00:00: mouth [place] XL) 150 mg 00 daily. Medical 24 hr Branch tablet busPIRone 2021-0 Yes [id number] 30mg Take 1 Un matt 30 mg 4-12 tablet by ity of tablet 00:00: mouth 2 [place] 00 (two) Medical times Branch daily. SERTraline 2021-0 Yes [id number] 200mg Take 2 Univers 100 mg 4-12 tablets by ity of tablet 00:00: mouth [place] 00 daily. Medical Branch buPROPion 2021-0 Yes [id number] 150mg Take 1 U nivers XL 4-12 tablet by ity of (WELLBUTRIN 00:00: mouth [place] XL) 150 mg 00 daily. Medical 24 hr Branch tablet busPIRone 2021-0 Yes [id number] 30mg Take 1 Un matt 30 mg 4-12 tablet by ity of tablet 00:00: mouth 2 [place] 00 (two) Medical times Branch daily. SERTraline 2021-0 Yes [id number] 200mg Take 2 Univers 100 mg 4-12 tablets by ity of tablet 00:00: mouth [place] 00 daily. Medical Branch buPROPion 2021-0 Yes [id number] 150mg Take 1 U nivers XL 4-12 tablet by ity of (WELLBUTRIN 00:00: mouth [place] XL) 150 mg 00 daily. Medical 24 hr Branch tablet busPIRone 2021-0 Yes [id number] 30mg Take 1 Un matt 30 mg 4-12 tablet by ity of tablet 00:00: mouth 2 [place] 00 (two) Medical times Branch daily. SERTraline 2021-0 Yes [id number] 200mg Take 2 Univers 100 mg 4-12 tablets by ity of tablet 00:00: mouth [place] 00 daily. Medical Branch raltegravir 2021-0 Yes [id number] 400mg Take 1 Univers (ISENTRESS) 3-28 tablet by ity of 400 mg 00:00: mouth 2 [place] tablet 00 (two) Medical times Branch daily. raltegravir 2021-0 Yes [id number] 400mg Take 1 Univers (ISENTRESS) 3-28 tablet by ity of 400 mg 00:00: mouth 2 [place] tablet 00 (two) Medical times Branch daily. raltegravir 2021-0 Yes [id number] 400mg Take 1 Univers (ISENTRESS) 3-28 tablet by ity of 400 mg 00:00: mouth 2 [place] tablet 00 (two) Medical times Branch daily. raltegravir 2021-0 Yes [id number] 400mg Take 1 Univers (ISENTRESS) 3-28 tablet by ity of 400 mg 00:00: mouth 2 [place] tablet 00 (two) Medical times Branch daily. raltegravir 2021-0 Yes [id number] 400mg Take 1 Univers (ISENTRESS) 3-28 tablet by ity of 400 mg 00:00: mouth 2 [place] tablet 00 (two) Medical times Branch daily. raltegravir 2021-0 Yes [id number] 400mg Take 1 Univers (ISENTRESS) 3-28 tablet by ity of 400 mg 00:00: mouth 2 [place] tablet 00 (two) Medical times Branch daily. raltegravir 2021-0 Yes [id number] 400mg Take 1 Univers (ISENTRESS) 3-28 tablet by ity of 400 mg 00:00: mouth 2 [place] tablet 00 (two) Medical times Branch daily. raltegravir 2021-0 Yes [id number] 400mg Take 1 Univers (ISENTRESS) 3-28 tablet by ity of 400 mg 00:00: mouth 2 [place] tablet 00 (two) Medical times Branch daily. raltegravir 2021-0 Yes [id number] 400mg Take 1 Univers (ISENTRESS) 3-28 tablet by ity of 400 mg 00:00: mouth 2 [place] tablet 00 (two) Medical times Branch daily. raltegravir 2022-0 Yes [id number] 400mg Take 1 Univers (ISENTRESS) 3-28 tablet by ity of 400 mg 00:00: mouth 2 [place] tablet 00 (two) Medical times Branch daily. raltegravir 2022-0 Yes [id number] 400mg Take 1 Univers (ISENTRESS) 3-28 tablet by ity of 400 mg 00:00: mouth 2 [place] tablet 00 (two) Medical times Branch daily. raltegravir 2022-0 Yes [id number] 400mg Take 1 Univers (ISENTRESS) 3-28 tablet by ity of 400 mg 00:00: mouth 2 [place] tablet 00 (two) Medical times Branch daily. raltegravir 2022-0 Yes [id number] 400mg Take 1 Univers (ISENTRESS) 3-28 tablet by ity of 400 mg 00:00: mouth 2 [place] tablet 00 (two) Medical times Branch daily. raltegravir 2-0 Yes [id number] 400mg Take 1 Univers (ISENTRESS) 3-28 tablet by ity of 400 mg 00:00: mouth 2 [place] tablet 00 (two) Medical times Branch daily. raltegravir 2022-0 Yes [id number] 400mg Take 1 [facility] (ISENTRESS) 3-28 tablet by ity of 400 mg 00:00: mouth 2 [place] tablet 00 (two) Medical times Branch daily. raltegravir 2022-0 Yes [id number] 400mg Take 1 [facility] (ISENTRESS) 3-28 tablet by ity of 400 mg 00:00: mouth 2 [place] tablet 00 (two) Medical times Branch daily. raltegravir 2022-0 Yes [id number] 400mg Take 1 [facility] (ISENTRESS) 3-28 tablet by ity of 400 mg 00:00: mouth 2 [place] tablet 00 (two) Medical times Branch daily. raltegravir 2022-0 Yes [id number] 400mg Take 1 [facility] (ISENTRESS) 3-28 tablet by ity of 400 mg 00:00: mouth 2 [place] tablet 00 (two) Medical times Branch daily. raltegravir 2022-0 Yes [id number] 400mg Take 1 [facility] (ISENTRESS) 3-28 tablet by ity of 400 mg 00:00: mouth 2 [place] tablet 00 (two) Medical times Branch daily. raltegravir Yes [id number] 400mg Take 1 [facility] (ISENTRESS) 3-28 tablet by ity of 400 mg 00:00: mouth 2 [place] tablet 00 (two) Medical times Branch daily. raltegravir 2022- No [id number] 400mg Take 1 [facility] (ISENTRESS) 3-28 05-08 tablet by it y of 400 mg 00:00: 00:00 mouth 2 [place] tablet 00 :00 (two) Medical times Branch daily. LORazepam 1 2021- No [id number] 1mg Take 1 [facility] mg tablet 3-10 [...] times a tablet day. emtricitabi 2021- No [id number] Take one [facility] ne-tenofovi 1-20 09-12 po daily ity of r alafen 00:00: 00:00 [place] (DESCOVY) 00 :00 Medical tablet Branch metoprolol Yes [id number] Take 1 [facility] tartrate 7-26 tablet [facility] (Lopressor) 00:00: (100 mg 100 MG 00 total) by tablet mouth 2 (two) times a day AND 0.5 tablets (50 mg total) every night. metoprolol Yes [id number] Take 1 [facility] tartrate 7-26 tablet [facility] [...] (affected area in groin) hydrALAZINE Yes 50mg Q.[id number] Take 50 mg [facility] (APRESOLINE 7-19 [id number] by mouth 3 st ) 50 MG [...] (affected area in groin) hydrALAZINE Yes 50mg Q.[id number] Take 50 mg [facility] (APRESOLINE 7-19 [id number] mouth 3 st ) 50 MG [...] area in groin) hydrALAZINE 2021-0 Yes 50mg Q.[id number] Take 50 mg [facility] (APRESOLINE 7-19 [id number] mouth 3 st ) 50 MG [...] (affected area in groin) hydrALAZINE Yes 50mg Q.36641786 Take 50 mg [facility] (APRESOLINE 7-19 [id number] by mouth 3 st ) 50 MG [...] (affected area in groin) hydrALAZINE Yes 50mg Q.[id number] Take 50 mg [facility] (APRESOLINE 7-19 [id number] [address] mouth 3 st ) 50 MG [...] area in groin) hydrALAZINE 0 Yes 50mg Q.30022800 Take 50 mg [facility] (APRESOLINE 7-19 [id number] mouth 3 st ) 50 MG [...] (affected area in groin) hydrALAZINE Yes 50mg Q.51337408 Take 50 mg [facility] (APRESOLINE 7-[id number] mouth 3 [address] ) 50 MG [...] (affected area in groin) hydrALAZINE Yes 50mg Q.17533120 Take 50 mg [facility] (APRESOLINE 7-[id number] mouth 3 st ) 50 MG [...] area in groin) hydrALAZINE 0 Yes 50mg Q.14858028 Take 50 mg [facility] (APRESOLINE 7-[id number] mouth 3 [address] ) 50 MG [...] area in groin) hydrALAZINE 0 Yes 50mg Q.26813141 Take 50 mg [facility] (APRESOLINE 7-[id number] mouth 3 [address] ) 50 MG [...] (affected area in groin) hydrALAZINE Yes 50mg Q.[id number] Take 50 mg [facility] (APRESOLINE - [id number] by mouth 3 st ) 50 MG [...] area in groin) hydrALAZINE 0 Yes 50mg Q.95461547 Take 50 mg [facility] (APRESOLINE -19 [id number] by mouth 3 st ) 50 MG [...] area in groin) hydrALAZINE 2020-0 Yes 50mg Q.52129460 Take 50 mg [facility] (APRESOLINE 7-19 [id number] mouth 3 [address] ) 50 MG [...] (affected area in groin) hydrALAZINE Yes 50mg Q.[id number] Take 50 mg [facility] (APRESOLINE -19 [id number] by mouth 3 [address] ) 50 MG [...] area in groin) hydrALAZINE 0 Yes 50mg Q.55599398 Take 50 mg [facility] (APRESOLINE 7-[id number] mouth 3 [address] ) 50 MG [...] area in groin) hydrALAZINE 2020-0 Yes 50mg Q.38245579 Take 50 mg [facility] (APRESOLINE 7-19 [id number] mouth [address] ) 50 MG [...] area in groin) hydrALAZINE 0 Yes 50mg Q.21573992 Take 50 mg [facility] (APRESOLINE 7-[id number] mouth [address] ) 50 MG [...] (affected area in groin) hydrALAZINE Yes 50mg Q.79301520 Take 50 mg [facility] (APRESOLINE 7-19 [id number] mouth 3 [address] ) 50 MG [...] area in groin) hydrALAZINE 2020-0 Yes 50mg Q.81841918 Take 50 mg [facility] (APRESOLINE -19 [id number] [address] mouth [address] ) 50 MG [...] area in groin) hydrALAZINE 0 Yes 50mg Q.82577476 Take 50 mg [facility] (APRESOLINE 7-19 [id number] mouth [address] ) 50 MG [...] (affected area in groin) hydrALAZINE Yes 50mg Q.06285253 Take 50 mg [facility] (APRESOLINE 7-19 [id number] mouth 3 [address] ) 50 MG [...] area in groin) hydrALAZINE 0 Yes 50mg Q.39681695 Take 50 mg [facility] (APRESOLINE -19 [id number] [address] mouth 3 [address] ) 50 MG [...] area in groin) hydrALAZINE 0 Yes 50mg Q.37992835 Take 50 mg [facility] (APRESOLINE 7-[id number] mouth 3 [address] ) 50 MG [...] (affected area in groin) hydrALAZINE Yes 50mg Q.17883276 Take 50 mg [facility] (APRESOLINE 7-19 [id number] mouth 3 [address] ) 50 MG [...] area in groin) hydrALAZINE 0 Yes 50mg Q.82091506 Take 50 mg [facility] (APRESOLINE 7-19 [id number] mouth 3 [address] ) 50 MG [...] area in groin) hydrALAZINE 2020-0 Yes 50mg Q.61338668 Take 50 mg [facility] (APRESOLINE 7-[id number] mouth 3 [address] ) 50 MG [...] area in groin) hydrALAZINE 0 Yes 50mg Q.52367748 Take 50 mg [facility] (APRESOLINE 7-19 [id number] mouth 3 [address] ) 50 MG [...] (affected area in groin) hydrALAZINE Yes 50mg Q.43300009 Take 50 mg [facility] (APRESOLINE 7-19 [id number] mouth 3 [address] ) 50 MG [...] area in groin) hydrALAZINE 0 Yes 50mg Q.11723863 Take 50 mg [facility] (APRESOLINE 7-[id number] mouth 3 [address] ) 50 MG [...] area in groin) hydrALAZINE 0 Yes 50mg Q.55010151 Take 50 mg [facility] (APRESOLINE 7-[id number] mouth 3 [address] ) 50 MG [...] (affected area in groin) hydrALAZINE Yes 50mg Q.07450727 Take 50 mg [facility] (APRESOLINE 7-[id number] mouth 3 [address] ) 50 MG [...] area in groin) hydrALAZINE 0 Yes 50mg Q.52247893 Take 50 mg [facility] (APRESOLINE 7-[id number] mouth 3 [address] ) 50 MG [...] (affected area in groin) hydrALAZINE Yes 50mg Q.08037132 Take 50 mg [facility] (APRESOLINE 7-[id number] mouth 3 [address] ) 50 MG [...] (affected area in groin) hydrALAZINE Yes 50mg Q.31195709 Take 50 mg [facility] (APRESOLINE 7-[id number] mouth 3 [address] ) 50 MG [...] (affected area in groin) hydrALAZINE Yes 50mg Q.11183247 Take 50 mg [facility] (APRESOLINE 7-[id number] mouth 3 [address] ) 50 MG [...] area in groin) hydrALAZINE 0 Yes 50mg Q.42657816 Take 50 mg [facility] (APRESOLINE 7-19 [id number] mouth 3 [address] ) 50 MG [...] (affected area in groin) hydrALAZINE Yes 50mg Q.19480234 Take 50 mg [facility] (APRESOLINE 7-[id number] mouth 3 [address] ) 50 MG [...] (affected area in groin) hydrALAZINE Yes 50mg Q.56381501 Take 50 mg [facility] (APRESOLINE 7-[id number] mouth 3 [address] ) 50 MG [...] area in groin) hydrALAZINE 0 Yes 50mg Q.97897971 Take 50 mg [facility] (APRESOLINE 7-[id number] mouth 3 [address] ) 50 MG [...] area in groin) hydrALAZINE 0 Yes 50mg Q.81075694 Take 50 mg [facility] (APRESOLINE 7-[id number] mouth 3 [address] ) 50 MG [...] (affected area in groin) hydrALAZINE Yes 50mg Q.90431302 Take 50 mg [facility] (APRESOLINE 7-[id number] mouth 3 [address] ) 50 MG [...] area in groin) hydrALAZINE 0 Yes 50mg Q.63429458 Take 50 mg [facility] (APRESOLINE 7-[id number] mouth 3 [address] ) 50 MG [...] area in groin) hydrALAZINE 0 Yes 50mg Q.36006716 Take 50 mg [facility] (APRESOLINE 7-[id number] mouth 3 [address] ) 50 MG [...] (affected area in groin) hydrALAZINE Yes 50mg Q.49680407 Take 50 mg [facility] (APRESOLINE 7-[address] mouth 3 [address] ) 50 MG [...] (affected area in groin) hydrALAZINE Yes 50mg Q.55881606 Take 50 mg [facility] (APRESOLINE 7-[id number] mouth 3 [address] ) 50 MG [...] area in groin) hydrALAZINE 0 Yes 50mg Q.64569154 Take 50 mg [facility] (APRESOLINE 7-[id number] mouth 3 [address] ) 50 MG [...] (affected area in groin) hydrALAZINE Yes 50mg Q.21897455 Take 50 mg [facility] (APRESOLINE 7-[id number] mouth 3 [address] ) 50 MG [...] (affected area in groin) hydrALAZINE Yes 50mg Q.81640878 Take 50 mg [facility] (APRESOLINE 7-[id number] mouth [address] ) 50 MG [...] area in groin) hydrALAZINE 0 Yes 50mg Q.97089180 Take 50 mg [facility] (APRESOLINE 7-[address] mouth 3 [address] ) 50 MG [...] (affected area in groin) hydrALAZINE Yes 50mg Q.[id number] Take 50 mg [facility] (APRESOLINE 7-[id number] mouth [address] ) 50 MG [...] (affected area in groin) hydrALAZINE Yes 50mg Q.53400198 Take 50 mg [facility] (APRESOLINE 7-[id number] mouth 3 [address] ) 50 MG [...] area in groin) hydrALAZINE 0 Yes 50mg Q.71673775 Take 50 mg [facility] (APRESOLINE 7-19 [id number] by mouth 3 st ) 50 MG [...] area in groin) hydrALAZINE 0 Yes 50mg Q.87257060 Take 50 mg [facility] (APRESOLINE 7-[id number] mouth [address] ) 50 MG [...] (affected area in groin) hydrALAZINE Yes 50mg Q.[id number] Take 50 mg [facility] (APRESOLINE 7-[id number] mouth [address] ) 50 MG [...] area in groin) hydrALAZINE 0 Yes 50mg Q.13538599 Take 50 mg [facility] (APRESOLINE 7-[id number] mouth 3 [address] ) 50 MG [...] area in groin) hydrALAZINE 0 Yes 50mg Q.[id number] Take 50 mg [facility] (APRESOLINE 7-[id number] mouth 3 [address] ) 50 MG [...] (affected area in groin) hydrALAZINE Yes 50mg Q.63077962 Take 50 mg [facility] (APRESOLINE 7-[id number] mouth [address] ) 50 MG [...] (affected area in groin) hydrALAZINE Yes 50mg Q.[id number] Take 50 mg [facility] (APRESOLINE 7-[id number] mouth 3 [address] ) 50 MG [...] area in groin) hydrALAZINE 0 Yes 50mg Q.[id number] Take 50 mg [facility] (APRESOLINE 7-[address] mouth [address] ) 50 MG [...] (affected area in groin) hydrALAZINE Yes 50mg Q.[id number] Take 50 mg [facility] (APRESOLINE 7-[address] mouth 3 [address] ) 50 MG [...] [facility] tablet 25 l nystatin-tr 2021-0 Yes [id number] Apply to [facility] iamcinolone 7-06 area(s) 3 ity of cream 00:00: (three) [place] 00 times Medical daily. Branch nystatin-tr 2021-0 Yes [id number] Apply to [facility] iamcinolone 7-06 area(s) 3 ity of cream 00:00: (three) [place] 00 times Medical daily. Branch nystatin-tr 2021-0 Yes [id number] Apply to [facility] iamcinolone 7-06 area(s) 3 ity of cream 00:00: (three) [place] 00 times Medical daily. Branch nystatin-tr 2021-0 Yes [id number] Apply to [facility] iamcinolone 7-06 area(s) 3 ity of cream 00:00: (three) [place] 00 times Medical daily. Branch nystatin-tr 2021-0 Yes [id number] Apply to [facility] iamcinolone 7-06 area(s) 3 ity of cream 00:00: (three) [place] 00 times Medical daily. Branch nystatin-tr 2021-0 Yes [id number] Apply to [facility] iamcinolone 7-06 area(s) 3 ity of cream 00:00: (three) [place] 00 times Medical daily. Branch nystatin-tr 2021-0 Yes [id number] Apply to [facility] iamcinolone 7-06 area(s) 3 ity of cream 00:00: (three) [place] 00 times Medical daily. Branch nystatin-tr 2021-0 Yes [id number] Apply to [facility] iamcinolone 7-06 area(s) 3 ity of cream 00:00: (three) [place] 00 times Medical daily. Branch nystatin-tr 2021-0 Yes [id number] Apply to [facility] iamcinolone 7-06 area(s) 3 ity of cream 00:00: (three) [place] 00 times Medical daily. Branch nystatin-tr 2021-0 Yes [id number] Apply to [facility] iamcinolone 7-06 area(s) 3 ity of cream 00:00: (three) [place] 00 times Medical daily. Branch nystatin-tr 2021-0 Yes [id number] Apply to [facility] iamcinolone 7-06 area(s) 3 ity of cream 00:00: (three) [place] 00 times Medical daily. Branch nystatin-tr 2021-0 Yes [id number] Apply to [facility] iamcinolone 7-06 area(s) 3 ity of cream 00:00: (three) [place] 00 times Medical daily. Branch nystatin-tr 2021-0 Yes [id number] Apply to [facility] iamcinolone 7-06 area(s) 3 ity of cream 00:00: (three) [place] 00 times Medical daily. Branch nystatin-tr 2021-0 Yes [id number] Apply to [facility] iamcinolone 7-06 area(s) 3 ity of cream 00:00: (three) [place] 00 times Medical daily. Branch nystatin-tr 2021-0 Yes [id number] Apply to [facility] iamcinolone 7-06 area(s) 3 ity of cream 00:00: (three) [place] 00 times Medical daily. Branch nystatin-tr 2021-0 Yes [id number] Apply to [facility] iamcinolone 7-06 area(s) 3 ity of cream 00:00: (three) [place] 00 times Medical daily. Branch nystatin-tr 2021-0 Yes [id number] Apply to [facility] iamcinolone 7-06 area(s) 3 ity of cream 00:00: (three) [place] 00 times Medical daily. Branch nystatin-tr 2021-0 Yes [id number] Apply to [facility] iamcinolone 7-06 area(s) 3 ity of cream 00:00: (three) [place] 00 times Medical daily. Branch nystatin-tr 2021-0 Yes [id number] Apply to [facility] iamcinolone 7-06 area(s) 3 ity of cream 00:00: (three) [place] 00 times Medical daily. Branch nystatin-tr 2021-0 Yes [id number] Apply to [facility] iamcinolone 7-06 area(s) 3 ity of cream 00:00: (three) [place] 00 times Medical daily. Branch nystatin-tr 0 Yes [id number] Apply to [facility] [place] [facility] 11-25 area(s) 3 ity of cream 00:00: (three) [place] 00 times Medical daily. Branch nystatin-tr 2020-0 Yes [id number] Apply to [facility] [place] [facility] 7 area(s) 3 ity of cream 00:00: (three) [place] 00 times Medical daily. Branch budesonide- 2020-0 2021- No 1{puff} QD Inhale 1 [facility] formoteroL 625 06-[address] (SYMBICORT) 14:37: 00:00 morning. H ospita 160-4.5 02 :00 l mcg/actuati on inhaler hydrALAZINE 0 Yes [id number] 50mg Q.[id number] Take 1 [facility] (Apresoline 6-11 [id number] tablet (50 Health ) 50 MG 00:00: 3D mg total) tablet 00 by mouth 3 (three) times a day. hydrALAZINE Yes [id number] 50mg Q.[id number] Take 1 [facility] (Apresoline 6-11 [id number] tablet (50 Health ) 50 MG 00:00: [...] Health 100 MG 00:00: tablet 00 lisinopril 2021-0 Yes [facility] 40 MG 5-30 [facility] tablet 00:00: 00 sertraline 2021- No 200mg 200 mg. [facility] (Zoloft) 30 02-22 Health 100 MG 00:00: 00:00 tablet 00 :00 mupirocin Yes [facility] (Bactroban) 5-28 Health 2 % 00:00: ointment 00 mupirocin 0 Yes [facility] (Bactroban) 28 [facility] 2 % 00:00: ointment 00 nystatin 0 2020- No [id number] Q.25D Take 5 mL [facility] (MYCOSTATIN 10-06 [...] ia 4-10 (Same as: l 14:00: Cordarone) [place] Amlodipine No Notes: [facility] ia 4-10 (Same as: l 14:00: Norvasc) [place] emtricitabi No Notes: Caesar lisa ne 200 MG / 4-10 (Same as: l tenofovir 14:00: Descovy) Herm ariel alafenamide 00 Non-formul 25 MG Oral nancy Tablet [Descovy] Sertraline No Notes: [facility] ia 4-10 (Same as: l 14:00: Zoloft) [place] pantoprazol No Notes: [place] lisa e 4-10 Tablet l 14:00: should not [place] 00 be chewed or crushed. (Same as: [...] ia 4-10 (Same as: l 14:00: Zoloft) [place] pantoprazol No Notes: [place] lisa e 4-10 Tablet l 14:00: should not [place] 00 be chewed or crushed. (Same as: Protonix) Amiodarone No Notes: [facility] ia 4-10 (Same as: l 14:00: Cordarone) [place] Amlodipine No Notes: [facility] ia 4-10 (Same as: l 14:00: Norvasc) [place] 00 emtricitabi No Notes: Caesar lisa ne [...] ia 4-10 (Same as: l 14:00: Cordarone) [place] Amlodipine No Notes: [facility] ia 4-10 (Same as: l 14:00: Norvasc) [place] emtricitabi No Notes: [place] lisa ne 200 MG / 4-10 (Same as: l tenofovir 14:00: Descovy) Herm ariel alafenamide 00 Non-formul 25 MG Oral nancy Tablet [Descovy] Sertraline No Notes: [facility] ia 4-10 (Same as: l 14:00: Zoloft) [place] pantoprazol No Notes: [place] lisa e 4-10 Tablet l 14:00: should not [place] 00 be chewed or crushed. (Same as: Protonix) Amiodarone No Notes: [facility] ia 4-10 (Same as: l 14:00: Cordarone) [place] Amlodipine No Notes: [facility] ia 4-10 (Same as: l 14:00: Norvasc) [place] emtricitabi No Notes: [place] lisa ne 200 MG / 4-10 (Same as: l tenofovir 14:00: Descovy) Herm ariel alafenamide 00 Non-formul 25 MG Oral nancy Tablet [Descovy] Sertraline No Notes: [facility] ia 4-10 (Same as: l 14:00: Zoloft) [place] pantoprazol No Notes: [place] lisa e 4-10 Tablet l 14:00: should not [place] 00 be chewed or crushed. (Same as: Protonix) Amiodarone No Notes: [facility] ia 4-10 (Same as: l 14:00: Cordarone) [place] 00 Sucralfate No Notes: May M emoria 4-10 interfere l 02:00: w/enteral [place] 00 feeds - Take 1 hr before or 2 hr after antacids, dairy pdt, meals & minerals - On empty stomach. For patients unable to swallow tablet, dissolve in 10mL - 30mL of water or juice and stir before giving. (Same As: Carafate) Saline No Notes: [facility] Flush 0.9% 4-10 (Same as: l 02:00: BD [place] 00 Posiflush) Eliquis No Notes: [facility] 4-10 Same as: l 02:00: Eliquis [place] Hydralazine No Notes: [place] lisa Hydrochlori 4-10 (Same as: l de 50 MG 02:00: Apresoline Her mitchell Oral Tablet 00 ) May interfere w/enteral feedings Take With Food Sucralfate No Notes: May M emoria 4-10 interfere l 02:00: w/enteral [place] 00 feeds - Take 1 hr before [...] M emoria 4-10 interfere l 02:00: w/enteral [place] 00 feeds - Take 1 hr before or 2 hr after antacids, dairy pdt, meals & minerals - On empty stomach. For patients unable to swallow tablet, dissolve in 10mL - 30mL of water or juice and stir before giving. (Same As: Carafate) Saline No Notes: [facility] Flush 0.9% 4-10 (Same as: l 02:00: BD [place] 00 Posiflush) Eliquis No Notes: [facility] 4-10 Same as: l 02:00: Eliquis [place] Hydralazine No Notes: [place] lisa Hydrochlori 4-10 (Same as: l de 50 MG 02:00: Apresoline Her mit[place] Oral Tablet 00 ) May interfere w/enteral feedings Take With Food Sucralfate No Notes: May M emoria 4-10 interfere l 02:00: w/enteral [place] 00 feeds - Take 1 hr before [...] [facility] 4-10 Same as: l 02:00: Eliquis [place] Hydralazine No Notes: [place] lisa Hydrochlori 4-10 [...] M emoria 4-10 interfere l 02:00: w/enteral [place] 00 feeds - Take 1 hr before or 2 hr after antacids, dairy pdt, meals & minerals - On empty stomach. For patients unable to swallow tablet, dissolve in 10mL - 30mL of water or juice and stir before giving. (Same As: Carafate) Saline No Notes: [facility] Flush 0.9% 4-10 (Same as: l 02:00: BD [place] Posiflush) Eliquis No Notes: [facility] 4-10 Same as: l 02:00: Eliquis [place] 00 Hydralazine No Notes: Caesar lisa Hydrochlori 4-10 (Same as: l de 50 MG 02:00: Apresoline Her mit[place] Oral Tablet 00 ) May interfere w/enteral feedings Take With Food Sucralfate No Notes: May M emoria 4-10 interfere l 02:00: w/enteral [place] 00 feeds - Take 1 hr before or 2 hr after antacids, dairy pdt, meals & minerals - On empty stomach. For patients unable to swallow tablet, dissolve in 10mL - 30mL of water or juice and stir before giving. (Same As: Carafate) Saline No Notes: [facility] Flush 0.9% 4-10 (Same as: l 02:00: BD [place] Posiflush) Eliquis No Notes: [facility] 4-10 Same as: l 02:00: Eliquis [place] Hydralazine No Notes: Caesar lisa Hydrochlori 4-10 [...] not exceed l #3 00:12: 4gm/day of [place] acetaminop hen. (Same as: Tylenol with Codeine [...] tartrate 4- tab, l 22:00: Route: PO, [place] 00 Drug form: TAB, BID, Dosing Weight [...] oria 4-09 tab, l 22:00: Route: PO, [place] 00 Drug form: TAB, BID, Dosing Weight [...] oria 4-09 tab, l 22:00: Route: PO, [place] 00 Drug form: TAB, BID, Dosing Weight 97.273, kg, Start date: 08/29/20 17:00:00 CDT, Duration: 30 day, Stop date: 09/28/20 9:00:00 CDT metoprolol 2021-0 No 100 mg, 1 Me moria tartrate 4-09 tab, l 22:00: Route: PO, [place] 00 Drug form: TAB, BID, Dosing Weight [...] oria 4-09 tab, l 22:00: Route: PO, [place] 00 Drug form: TAB, BID, Dosing Weight [...] tartrate 4-09 tab, l 22:00: Route: PO, [place] 00 Drug form: TAB, BID, Dosing Weight [...] tartrate 4-09 tab, l 22:00: Route: PO, [place] 00 Drug form: TAB, BID, Dosing Weight [...] tab, PO, l oral 15:27: Daily, # [place] enteric 00 30 tab, 0 coated Refill(s), [...] tab, PO, l oral 15:27: Daily, # [place] enteric 00 30 tab, 0 coated Refill(s), [...] tab, PO, l oral 15:27: Daily, # [place] enteric 00 30 tab, 0 coated Refill(s), tablet Pharmacy: [facility] [id number], 162.56, cm, 08/29/20 5:30:00 CDT, Height, 97.273, kg, 08/29/20 5:30:00 CDT, Weight pantoprazol 2020-0 Yes 40 mg = 1 M emoria e 40 mg 4-09 tab, PO, l oral 15:27: Daily, # [place] enteric 00 30 tab, 0 coated Refill(s), [...] 00 tab, 0 Refill(s), Pharmacy: [place] [id number], 162.56, cm, 08/29/20 5:30:00 CDT, Height, 97.273, kg, 08/29/20 5:30:00 CDT, Weight pantoprazol 2020-0 No 40 mg = 1 M emoria e 40 mg 4-09 tab, PO, l oral 15:26: Daily, # [place] enteric 00 30 tab, 0 coated Refill(s) tablet sucralfate 2020-0 Yes 1 gm = 1 Mem oria 1 g oral 4-09 tab, PO, l tablet 15:26: Q12H, # 28 Skylar nn 00 tab, 0 Refill(s), Pharmacy: [place] [id number], 162.56, cm, 08/29/20 5:30:00 CDT, Height, 97.273, kg, 08/29/20 5:30:00 CDT, Weight pantoprazol 1-0 No 40 mg = 1 M emoria e 40 mg 4-09 tab, PO, l oral 15:26: Daily, # [place] enteric 00 30 tab, 0 coated Refill(s) [...] 00 tab, 0 Refill(s), Pharmacy: [place] [id number], 162.56, cm, 08/29/20 5:30:00 CDT, Height, 97.273, [...] 0.9% 4-09 (Same as: l 15:25: BD [place] 00 Posiflush) Lorazepam No Notes: Memori a 4-09 (Same as: l 15:25: Ativan) [place] 00 Saline No Notes: [facility] Flush 0.9% 4-09 (Same as: l 15:25: BD [place] 00 Posiflush) Lorazepam No Notes: Memori a 4-09 (Same as: l 15:25: Ativan) Saline No Notes: [facility] Flush 0.9% 4-09 (Same as: l 15:25: BD [place] 00 Posiflush) Saline No Notes: [facility] Flush 0.9% 4-09 (Same as: l 15:25: BD [place] 00 Posiflush) Lorazepam No Notes: [facility] a 4-09 (Same as: l 15:25: Ativan) Lorazepam No Notes: [facility] a 4-09 (Same as: l 15:25: Ativan) Saline No Notes: [facility] Flush 0.9% 4-09 (Same as: l 15:25: BD [place] 00 Posiflush) Lorazepam No Notes: [facility]ori a 4-09 (Same as: l 15:25: Ativan) Saline No Notes: [facility] Flush 0.9% 4-09 (Same as: l 15:25: BD [place] 00 Posiflush) Lorazepam No Notes: Memori a [...] Drug form: l mg + 15:00: INJ, [place] Dosing Weight 97.3, kg, Start date: 08/29/20 10:00:00 CDT, Stop date: 08/29/20 11:00:00 CDT Isuprel HCl 2020-0 No Route: IV, [facility] (ANES) 0.2 08-29 Drug form: l mg + 15:00: INJ, [place] Dosing Weight 97.3, kg, Start date: 08/29/20 10:00:00 CDT, Stop date: 08/29/20 11:00:00 CDT Isuprel HCl 2020-0 No Route: IV, [facility] (ANES) 0.2 08-29 Drug form: l mg + 15:00: INJ, Marty Dosing Weight 97.3, kg, Start date: 08/29/20 10:00:00 CDT, Stop date: 08/29/20 11:00:00 CDT Isuprel HCl 2020-0 No Route: IV, [facility] (ANES) 0.2 08-29 Drug form: l mg + 15:00: INJ, [place] Dosing Weight 97.3, kg, Start date: 08/29/20 [...] 00 Stop date: 08/29/20 9:29:00 CDT propofol 2020-0 [...] 08-29 Drug form: l 14:29: INJ, ONCE, [place] 00 Stop date: 08/29/20 9:29:00 CDT propofol 2020-0 [...] 08-29 Drug form: l 14:18: INJ, ONCE, [place] 00 Stop date: 08/29/20 9:18:00 CDT heparin [...] lisa 08-29 Route: l 14:01: IVP, PRN, [place] 00 Dosing Weight 97.273, kg, PRN Benzodiaze pine Reversal, Initial dose, Start date: 08/29/20 9:01:00 CDT, Duration: 30 day, Stop date: 09/28/20 9:00:00 CDT Naloxone 2020-0 No 0.4 mg, Memori a 08-29 Route: l 14:01: IVP, [place] 00 Q2MIN, Dosing Weight 97.273, kg, PRN [...] Memori a 08-29 Route: l 14:01: IVP, [place] 00 Q5Min, Dosing Weight 97.273, kg, PRN [...] oria ne 08-29 Route: l 14:01: IVP, [place] 00 Q5Min, Dosing Weight 97.273, kg, PRN [...] Memori a 08-29 Route: l 14:01: IVP, [place] 00 Q2MIN, Dosing Weight 97.273, kg, PRN [...] Memori a 08-29 Route: l 14:01: IVP, [place] 00 Q5Min, Dosing Weight 97.273, kg, PRN [...] Memori a 08-29 Route: l 14:01: IVP, [place] 00 Q5Min, Dosing Weight 97.273, kg, PRN [...] lisa 08-29 Route: l 14:01: IVP, PRN, [place] 00 Dosing Weight 97.273, kg, PRN Benzodiaze pine Reversal, Initial dose, Start date: 08/29/20 9:01:00 CDT, Duration: 30 day, Stop date: 09/28/20 9:00:00 CDT Naloxone 2021-0 No 0.4 mg, Memori a 08-29 Route: l 14:01: IVP, [place] 00 Q2MIN, Dosing Weight 97.273, kg, PRN Narcotic Reversal, Start date: 08/29/20 9:01:00 CDT, Duration: 8 doses or times, Stop date: Limited # of times Flumazenil 1-0 No 0.2 mg, Caesar lisa 08-29 Route: l 14:01: IVP, PRN, [place] Dosing Weight 97.273, kg, PRN Benzodiaze pine [...] Memori a 08-29 Route: l 14:01: IVP, [place] 00 Q5Min, Dosing Weight 97.273, kg, PRN [...] oria ne 08-29 Route: l 14:01: IVP, [place] 00 Q5Min, Dosing Weight 97.273, kg, PRN [...] Memori a 08-29 Route: l 14:01: IVP, [place] 00 Q2MIN, Dosing Weight 97.273, kg, PRN Narcotic Reversal, Start date: 08/29/20 9:01:00 CDT, Duration: 8 doses or times, Stop date: Limited # of times Ondansetron 2020-0 No 4 mg, Memor ia 08-29 Route: l 14:01: IVP, ONCE, [place] 00 Dosing Weight 97.273, kg, PRN Nausea [...] 4-09 Route: PO, l 14:01: Drug form: [place] 00 TAB, ONCE, Dosing Weight 97.273, kg, [...] oria ne 08-29 Route: l 14:01: IVP, [place] 00 Q5Min, Dosing Weight 97.273, kg, PRN [...] Memori a 08-29 Route: l 14:01: IVP, [place] 00 Q2MIN, Dosing Weight 97.273, kg, PRN [...] 08-29 Drug form: l 13:42: INJ, ONCE, [place] Stop date: 08/29/20 8:42:00 CDT fentaNYL 2020-0 No Route: IV, Mem oria (ANES) 08-29 Drug form: l 13:42: INJ, ONCE, [place] 00 Stop date: 08/29/20 8:42:00 CDT fentaNYL 2020-0 No Route: IV, Mem oria (ANES) 08-29 Drug form: l 13:42: INJ, ONCE, [place] 00 Stop date: 08/29/20 8:42:00 CDT fentaNYL [...] Drug form: l 10 13:15: INJ, Start [place] microgram date: 08/29/20 8:15:00 CDT, Stop date: 08/29/20 9:15:00 CDT norepinephr 2020-0 No Route: IV, Memoria ine (ANES) 4- Drug form: l 10 13:15: INJ, Start [place] microgram 00 date: 08/29/20 8:15:00 CDT, Stop date: 08/29/20 9:15:00 CDT norepinephr 2020-0 No Route: IV, [facility] in[facility] (ANES) - Drug form: l 10 13:15: INJ, Start [place] microgram 00 date: 08/29/20 8:15:00 CDT, Stop [...] 4-09 Total l 0.9% IV 12:30: Volume: [place] (ANES) 1000 00 1,000, mL Start date: 08/29/20 7:30:00 CDT, Stop date: 08/29/20 8:30:00 CDT Sodium 2021-0 No Route: IV, Memor ia Chloride 4-09 Total l 0.9% IV 12:30: Volume: [place] (ANES) 1000 00 1,000, mL Start date: 08/29/20 7:30:00 CDT, Stop date: 08/29/20 8:30:00 CDT Sodium 2021-0 No Route: IV, [facility] ia Chloride 4-09 Total l 0.9% IV 12:30: Volume: [place] (ANES) 1000 00 1,000, mL Start date: [...] PO, l Hydrochlori 11:42: Q24H, # 30 [place] de 150 MG 00 tab, 0 Extended Refill(s) Release Tablet 24 HR Yes 150 mg = 1 Memori a Bupropion -09 tab, PO, l Hydrochlori 11:42: Q24H, # 30 [place] de 150 MG 00 tab, 0 Extended Refill(s) Release Tablet 24 HR Yes 150 mg = 1 [facility] a Bupropion - tab, PO, l Hydrochlori 11:42: Q24H, # 30 [place] de 150 MG 00 tab, 0 Extended Refill(s) Release Tablet 24 HR Yes 150 mg = 1 [facility] a Bupropion -09 tab, PO, l Hydrochlori 11:42: Q24H, # 30 [place] de 150 MG 00 tab, 0 Extended Refill(s) Release Tablet 24 HR Yes 150 mg = 1 [facility] a Bupropion -09 tab, PO, l Hydrochlori 11:42: Q24H, # 30 [place] de 150 MG 00 tab, 0 Extended Refill(s) Release Tablet 24 HR Yes 150 mg = 1 [facility] a Bupropion 4-09 tab, PO, l Hydrochlori 11:42: Q24H, # 30 [place] de 150 MG 00 tab, 0 Extended Refill(s) Release Tablet 24 HR Yes 150 mg = 1 [facility] a Bupropion 4-09 tab, PO, l Hydrochlori 11:42: Q24H, # 30 [place] de 150 MG 00 tab, 0 Extended [...] 4-09 Q12H, tab, l Tablet 11:41: 0 [place] [Eliquis] 00 Refill(s), For Atrial Fibrilatio n apixaban 5 2020-0 Yes 5 mg, PO, Me moria MG Oral 4-09 Q12H, tab, l Tablet 11:41: 0 [place] [Eliquis] 00 Refill(s), For Atrial Fibrilatio n apixaban 5 2020-0 Yes 5 mg, PO, Me moria MG Oral 4- Q12H, tab, l Tablet 11:41: 0 [place] [Eliquis] 00 Refill(s), For Atrial Fibrilatio n [...] tab, PO, l tablet 11:38: Daily, # [place] 00 90 tab, 3 Refill(s) AMIODarone 2020-0 Yes 200 mg = 1 M emoria 200 mg oral 4-09 tab, PO, l tablet 11:38: Daily, # [place] 00 90 tab, 3 Refill(s) AMIODarone 2020-0 Yes 200 mg = 1 M em[place] 200 mg oral 4-09 tab, PO, l tablet 11:38: Daily, # [place] 00 90 tab, 3 Refill(s) AMIODarone 2020-0 Yes 200 mg = 1 M [place] 200 mg oral 4-09 tab, PO, l tablet 11:38: Daily, # [place] 00 90 tab, 3 Refill(s) AMIODarone 2020-0 Yes 200 mg = 1 M em[place] 200 mg oral 4-09 tab, PO, l tablet 11:38: Daily, # [place] 00 90 tab, 3 Refill(s) AMIODarone 2020-0 Yes 200 mg = 1 M em[place] 200 mg oral 4-09 tab, PO, l tablet 11:38: Daily, # [place] 00 90 tab, 3 Refill(s) AMIODarone 2020-0 [...] EC 00 :00 l tablet sucralfate 2020-0 1- No Method i (CARAFATE) 08-29 st 1 [...] Comments [facility] e Immunization Name Name SARS-COV-2 COVID-19 2022-03-05 [...] [place] 65[facility] PFIZER COVID-19 2020-07-23 Completed [facility]:00 [facility] PFIZER COVID-19 2020-07-23 Completed [facility] VACCINATION 00:00:00 [facility] PFIZER COVID-19 2020-07-23 Completed [facility] VACCINATION 00:00:00 [facility] PFIZER COVID-19 2020-07-23 Completed [facility] VACCINATION 00:00:00 [facility] PFIZER COVID-19 2020-07-23 Completed [facility] VACCINATION 00:00:00 [facility] PFIZER COVID-19 2020-07-23 Completed [facility] VACCINATION 00:00:00 [facility] PFIZER COVID-19 2020-07-23 Completed [facility] VACCINATION 00:00:00 [facility] PFIZER COVID-19 2020-07-23 Completed [facility] VACCINATION 00:00:00 [facility] PEG COVID-19 2020-07-23 Completed [facility] VACCINATION 00:00:00 [facility] PEG COVID-19 2020-07-23 Completed [facility] VACCINATION 00:00:00 [facility] PEG COVID-19 2020-07-23 Completed [facility] VACCINATION 00:00:00 [facility] PEG COVID-19 2020-07-23 Completed [facility] VACCINATION 00:00:00 [facility] PEG COVID-19 2020-07-23 Completed [facility] VACCINATION 00:00:00 [facility] PEG COVID-19 2020-07-23 Completed [facility] VACCINATION 00:00:00 [facility] PEG COVID-19 2020-07-23 Completed [facility] VACCINATION 00:00:00 [facility] PEG COVID-19 2020-07-23 Completed [facility] VACCINATION 00:00:00 [facility] PEG COVID-19 2020-07-23 Completed [facility] VACCINATION 00:00:00 [facility] PEG COVID-19 2020-07-23 Completed [facility] VACCINATION 00:00:00 [facility] PEG COVID-19 2020-07-23 Completed [facility] VACCINATION 00:00:00 [facility] PEG COVID-19 2020-07-23 Completed [facility] VACCINATION 00:00:00 [facility] PEG COVID-19 2020-07-23 Completed [facility] VACCINATION 00:00:00 [facility] PFIZER COVID-19 2020-07-23 Completed [facility] VACCINATION 00:00:00 [facility] PEG COVID-19 2020-07-23 Completed [facility] VACCINATION 00:00:00 [facility] PFIZER COVID-19 2020-07-23 Completed [facility] VACCINATION 00:00:00 [facility] PFIZER COVID-19 2020-07-23 Completed [facility] VACCINATION 00:00:00 [facility] PFIZER COVID-19 2020-07-23 Completed [facility] VACCINATION 00:00:00 [facility] PFIZER COVID-19 2020-07-23 Completed [facility] VACCINATION 00:00:00 [facility] PFIZER COVID-19 2020-07-23 Completed [facility] VACCINATION 00:00:00 [facility] PFIZER COVID-19 2020-07-23 Completed [facility] VACCINATION 00:00:00 [facility] PFIZER COVID-19 2020-07-23 Completed [facility] VACCINATION 00:00:00 [facility] PFIZER COVID-19 2020-07-23 Completed [facility] VACCINATION 00:00:00 [facility] PFIZER COVID-19 2020-07-23 Completed [facility] VACCINATION 00:00:00 [facility] PFIZER COVID-19 2020-07-23 Completed [facility] VACCINATION 00:00:00 [facility] PFIZER COVID-19 2020-07-23 Completed [facility] VACCINATION 00:00:00 [facility] PFIZER COVID-19 2020-07-23 Completed [facility] VACCINATION 00:00:00 [facility] PFIZER COVID-19 2020-07-23 Completed [facility] VACCINATION 00:00:00 [facility] PEG COVID-19 2020-07-23 Completed [facility] VACCINATION 00:00:00 [facility] PEG COVID-19 2020-07-23 Completed [facility] VACCINATION 00:00:00 [facility] PFIZER COVID-19 2020-07-23 Completed [facility] VACCINATION 00:00:00 [facility] PFIZER COVID-19 2020-07-23 Completed [facility] VACCINATION 00:00:00 [facility] PFIZER COVID-19 2020-07-23 Completed [facility] VACCINATION 00:00:00 [facility] PFIZER COVID-19 2020-07-23 Completed [facility] VACCINATION 00:00:00 [facility] PFIZER COVID-19 2020-07-23 Completed [facility] VACCINATION 00:00:00 [facility] PFIZER COVID-19 2020-07-23 Completed [facility] VACCINATION 00:00:00 [facility] PFIZER COVID-19 2020-07-23 Completed [facility] VACCINATION 00:00:00 [facility] PFIZER COVID-19 2020-07-23 Completed [facility] VACCINATION 00:00:00 [facility] PFIZER COVID-19 2020-07-23 Completed [facility] VACCINATION 00:00:00 [facility] PFIZER COVID-19 2020-07-23 Completed [facility] VACCINATION 00:00:00 [facility] PFIZER COVID-19 2020-07-23 Completed [facility] VACCINATION 00:00:00 [facility] PFIZER COVID-19 2020-07-23 Completed [facility] VACCINATION 00:00:00 [facility] PFIZER COVID-19 2020-07-23 Completed [facility] VACCINATION 00:00:00 [facility] PFIZER COVID-19 2020-07-23 Completed [facility] VACC[facility] 00:00:00 [facility] PFIZER COVID-19 2020-07-23 Completed [facility] VACCINATION 00:00:00 [facility] PFIZER COVID-19 2020-07-23 Completed [facility] VACCINATION 00:00:00 [facility] PFIZER COVID-19 2020-07-23 Completed [facility] VACCINATION 00:00:00 [facility] PFIZER COVID-19 2020-07-23 Completed [facility] VACCINATION 00:00:00 [facility] PFIZER COVID-19 2020-07-23 Completed [facility] VACCINATION 00:00:00 [facility] PFIZER COVID-19 2020-07-23 Completed [facility] VACCINATION 00:00:00 [facility] PFIZER COVID-19 2020-07-23 Completed [facility] VACCINATION 00:00:00 [facility] SARS-COV-2 COVID-19 2020-07-23 Completed [facility] PFIZER VACCINE 00:00:00 [facility] SARS-COV-2 COVID-19 2020-07-23 Completed [facility] of PFIZER VACCINE 00:00:00 [facility] SARS-COV-2 COVID-19 2020-07-23 Completed [facility] of PFIZER VACCINE 00:00:00 [facility] SARS-COV-2 COVID-19 2020-07-23 Completed [facility] PFIZER VACCINE 00:00:00 [facility] SARS-COV-2 COVID-19 2020-07-23 Completed [facility] PFIZER VACCINE 00:00:00 [facility] SARS-COV-2 COVID-19 2020-07-23 Completed [facility] PFIZER VACCINE 00:00:00 [facility] SARS-COV-2 COVID-19 2020-07-23 Completed [facility] PFIZER VACCINE 00:00:00 [facility] SARS-COV-2 COVID-19 2020-07-23 Completed [facility] PFIZER VACCINE 00:00:00 [facility] SARS-COV-2 COVID-19 2020-07-23 Completed [facility] PFIZER VACCINE 00:00:00 [facility] SARS-COV-2 COVID-19 2020-07-23 Completed [facility] PFIZER VACCINE 00:00:00 [facility] SARS-COV-2 COVID-19 2020-07-23 Completed [facility] PFIZER VACCINE 00:00:00 [facility] SARS-COV-2 COVID-19 2020-07-23 Completed [facility] PFIZER VACCINE 00:00:00 [facility] SARS-COV-2 COVID-19 2020-07-23 Completed [facility] PFIZER VACCINE 00:00:00 [facility] SARS-COV-2 COVID-19 2020-07-23 Completed [facility] PFIZER VACCINE 00:00:00 [facility] SARS-COV-2 COVID-19 2020-07-23 Completed [facility] PFIZER VACCINE 00:00:00 [facility] SARS-COV-2 COVID-19 2020-07-23 Completed [facility] PFIZER VACCINE 00:00:00 [facility] SARS-COV-2 COVID-19 2020-07-23 Completed [facility] PFIZER VACCINE 00:00:00 [facility] SARS-COV-2 COVID-19 2020-07-23 Completed [facility] PFIZER VACCINE 00:00:00 [facility] PFIZER COVID-19 2020-07-23 Completed [facility] VACCINATION 00:00:00 [facility] PFIZER COVID-19 2020-07-02 Completed [facility] MRNA VACCINATION 00:00:00 [facility] PFIZER COVID-19 2020-07-02 Completed [facility] MRNA VACCINATION 00:00:00 [facility] PFIZER COVID-19 2020-07-02 Completed [facility] M[facility] VACCINATION 00:00:00 [facility] PFIZER COVID-19 2020-07-02 Completed [facility] M[facility] VACCINATION 00:00:00 [facility] PFIZER COVID-19 2020-07-02 Completed [facility] VACCINATION 00:00:00 [facility] PFIZER COVID-19 2020-07-02 Completed [facility] MRNA VACCINATION 00:00:00 [facility] PFIZER COVID-19 2020-07-02 Completed [facility] MRNA VACCINATION 00:00:00 [facility] PFIZER COVID-19 2020-07-02 Completed [facility] MRNA VACCINATION 00:00:00 [facility] PFIZER COVID-19 2020-07-02 Completed [facility] MRNA VACCINATION 00:00:00 [facility] PFIZER COVID-19 2020-07-02 Completed [facility] MRNA VACCINATION 00:00:00 [facility] PFIZER COVID-19 2020-07-02 Completed [facility] M[facility] VACCINATION 00:00:00 [facility] PFIZER COVID-19 2020-07-02 Completed [facility] MRNA VACCINATION 00:00:00 [facility] PFIZER COVID-19 2020-07-02 Completed [facility] MRNA VACCINATION 00:00:00 [facility] PFIZER COVID-19 2020-07-02 Completed [facility] MRNA VACCINATION 00:00:00 [facility] PFIZER COVID-19 2020-07-02 Completed [facility] MRNA VACCINATION 00:00:00 [facility] PFIZER COVID-19 2020-07-02 Completed [facility] MRNA VACCINATION 00:00:00 [facility] PFIZER COVID-19 2020-07-02 Completed [facility] MRNA VACCINATION 00:00:00 [facility] PFIZER COVID-19 2020-07-02 Completed [facility] MRNA VACCINATION 00:00:00 [facility] PFIZER COVID-19 2020-07-02 Completed [facility] MRNA VACCINATION 00:00:00 [facility] PFIZER COVID-19 2020-07-02 Completed [facility] MRNA VACCINATION 00:00:00 [facility] PFIZER COVID-19 2020-07-02 Completed [facility] MRNA VACCINATION 00:00:00 [facility] PFIZER COVID-19 2020-07-02 Completed [facility] MRNA VACCINATION 00:00:00 [facility] PFIZER COVID-19 2020-07-02 Completed [facility] MRNA VACCINATION 00:00:00 [facility] PFIZER COVID-19 2020-07-02 Completed [facility] MRNA VACCINATION 00:00:00 [facility] PFIZER COVID-19 2020-07-02 Completed [facility] MRNA VACCINATION 00:00:00 [facility] PFIZER COVID-19 2020-07-02 Completed [facility] MRNA VACCINATION 00:00:00 [facility] PFIZER COVID-19 2020-07-02 Completed [facility] MRNA VACCINATION 00:00:00 [facility] PFIZER COVID-19 2020-07-02 Completed [facility] MRNA VACCINATION 00:00:00 [facility] PFIZER COVID-19 2020-07-02 Completed [facility] MRNA VACCINATION 00:00:00 [facility] PFIZER COVID-19 2020-07-02 Completed [facility] MRNA VACCINATION 00:00:00 [facility] PFIZER COVID-19 2020-07-02 Completed [facility] MRNA VACCINATION 00:00:00 [facility] PFIZER COVID-19 2020-07-02 Completed [facility] MRNA VACCINATION 00:00:00 [facility] PFIZER COVID-19 2020-07-02 Completed [facility] MRNA VACCINATION 00:00:00 [facility] PFIZER COVID-19 2020-07-02 Completed [facility] MRNA VACCINATION 00:00:00 [facility] PFIZER COVID-19 2020-07-02 Completed [facility] MRNA VACCINATION 00:00:00 [facility] PFIZER COVID-19 2020-07-02 Completed [facility] M[facility] VACCINATION 00:00:00 [facility] PFIZER COVID-19 2020-07-02 Completed [facility] MRNA VACCINATION 00:00:00 [facility] PFIZER COVID-19 2020-07-02 Completed [facility] MRNA VACCINATION 00:00:00 [facility] PFIZER COVID-19 2020-07-02 Completed [facility] M[facility] VACCINATION 00:00:00 [facility] PFIZER COVID-19 2020-07-02 Completed [facility] M[facility] VACCINATION 00:00:00 [facility] PFIZER COVID-19 2020-07-02 Completed [facility] M[facility] VACCINATION 00:00:00 [facility] PFIZER COVID-19 2020-07-02 Completed [facility] MRNA VACCINATION 00:00:00 [facility] PFIZER COVID-19 2020-07-02 Completed [facility] M[facility] VACCINATION 00:00:00 [facility] PFIZER COVID-19 2020-07-02 Completed [facility] M[facility] VACCINATION 00:00:00 [facility] PFIZER COVID-19 2020-07-02 Completed [facility] MRNA VACCINATION 00:00:00 [facility] PFIZER COVID-19 2020-07-02 Completed [facility] MRNA VACCINATION 00:00:00 [facility] PFIZER COVID-19 2020-07-02 Completed [facility] MRNA VACCINATION 00:00:00 [facility] PFIZER COVID-19 2020-07-02 Completed [facility] M[facility] VACCINATION 00:00:00 [facility] PFIZER COVID-19 2020-07-02 Completed [facility] MRNA VACCINATION 00:00:00 [facility] PFIZER COVID-19 2020-07-02 Completed [facility] MRNA VACCINATION 00:00:00 [facility] PFIZER COVID-19 2020-07-02 Completed [facility] MRNA VACCINATION 00:00:00 [facility] PFIZER COVID-19 2020-07-02 Completed [facility] MRNA VACCINATION 00:00:00 [facility] PFIZER COVID-19 2020-07-02 Completed [facility] MRNA VACCINATION 00:00:00 [facility] PFIZER COVID-19 2020-07-02 Completed [facility] MRNA VACCINATION 00:00:00 [facility] PFIZER COVID-19 2020-07-02 Completed [facility] MRNA VACCINATION 00:00:00 [facility] PFIZER COVID-19 2020-07-02 Completed [facility] VACCINATION 00:00:00 [facility] PFIZER COVID-19 2020-07-02 Completed [facility] VACCINATION 00:00:00 [facility] PFIZER COVID-19 2020-07-02 Completed [facility] MRNA VACCINATION 00:00:00 [facility] PFIZER COVID-19 2020-07-02 Completed [facility] MRNA VACCINATION 00:00:00 [facility] SARS-COV-2 COVID-19 2020-07-02 Completed [facility] PFIZER VACCINE 00:00:00 [facility] SARS-COV-2 COVID-19 2020-07-02 Completed [facility] PFIZER VACCINE 00:00:00 [facility] SARS-COV-2 COVID-19 2020-07-02 Completed [facility] PFIZER VACCINE 00:00:00 [facility] SARS-COV-2 COVID-19 2020-07-02 Completed [facility] PFIZER VACCINE 00:00:00 [facility] SARS-COV-2 COVID-19 2020-07-02 Completed [facility] PFIZER VACCINE 00:00:00 [facility] SARS-COV-2 COVID-19 2020-07-02 Completed [facility] PFIZER VACCINE 00:00:00 [facility] SARS-COV-2 COVID-19 2020-07-02 Completed [facility] PFIZER VACCINE 00:00:00 [facility] SARS-COV-2 COVID-19 2020-07-02 Completed [facility] PFIZER VACCINE 00:00:00 [facility] SARS-COV-2 COVID-19 2020-07-02 Completed [facility] PFIZER VACCINE 00:00:00 [facility] SARS-COV-2 COVID-19 2020-07-02 Completed [facility] PFIZER VACCINE 00:00:00 [facility] SARS-COV-2 COVID-19 2020-07-02 Completed [facility] PFIZER VACCINE 00:00:00 [facility] SARS-COV-2 COVID-19 2020-07-02 Completed [facility] PFIZER VACCINE 00:00:00 [facility] SARS-COV-2 COVID-19 2020-07-02 Completed [facility] PFIZER VACCINE 00:00:00 [facility] SARS-COV-2 COVID-19 2020-07-02 Completed [facility] PFIZER VACCINE 00:00:00 [facility] SARS-COV-2 COVID-19 2020-07-02 Completed [facility] PFIZER VACCINE 00:00:00 [facility] SARS-COV-2 COVID-19 2020-07-02 Completed [facility] PFIZER VACCINE 00:00:00 [facility] SARS-COV-2 COVID-19 2020-07-02 Completed [facility] PFIZER VACCINE 00:00:00 [facility] SARS-COV-2 COVID-19 2020-07-02 Completed [facility] PFIZER VACCINE 00:00:00 [facility] PFIZER COVID-19 2020-07-02 Completed [facility] VACCINATION 00:00:00 [facility] Influenza Virus 2017-03-08 Completed [facility] Vaccine 00:00:00 [facility] Influenza Virus 2017-03-08 Completed [facility] Vaccine 00:00:00 [facility] Influenza Virus 2017-03-08 Completed [facility] Vaccine 00:00:00 [facility] Influenza Virus 2017-03-08 Completed [facility] Vaccine 00:00:00 [facility] Influenza Virus 2017-03-08 Completed [facility] Vaccine 00:00:00 [facility] Influenza Virus 2017-03-08 Completed [facility] Vaccine 00:00:00 [facility] Influenza Virus 2017-03-08 Completed [facility] Vaccine 00:00:00 [facility] Influenza Virus 2017-03-08 Completed [facility] Vaccine 00:00:00 [facility] Influenza Virus 2017-03-08 Completed [facility] Vaccine 00:00:00 [facility] Influenza Virus 2017-03-08 Completed [facility] Vaccine 00:00:00 [facility] Influenza Virus 2017-03-08 Completed [facility] Vaccine 00:00:00 [facility] Influenza Virus 2017-03-08 Completed [facility] Vaccine 00:00:00 [facility] Influenza Virus 2017-03-08 Completed [facility] Vaccine 00:00:00 [facility] Influenza Virus 2017-03-08 Completed [facility] Vaccine 00:00:00 [facility] Influenza Virus 2017-03-08 Completed [facility] Vaccine 00:00:00 [facility] Influenza Virus 2017-03-08 Completed [facility] Vaccine 00:00:00 [facility] Influenza Virus 2017-03-08 Completed [facility] Vaccine 00:00:00 [facility] Influenza Virus 2017-03-08 Completed [facility] Vaccine 00:00:00 [facility] Influenza Virus 2017-03-08 Completed [facility] Vaccine 00:00:00 [facility] Influenza Virus 2017-03-08 Completed [facility] Vaccine 00:00:00 [facility] Influenza Virus 2017-03-08 Completed [facility] Vaccine 00:00:00 [facility] Influenza Virus 2017-03-08 Completed [facility] Vaccine 00:00:00 [facility] Influenza Virus 2014-01-30 Completed [facility] (3+ yrs[facility] 2014[facility]30 Com[facility] Conjugate, PCV13 00:00:00 [facility] dical (Prevnar 13) Branch Influenza Virus 2014-01-30 Completed [facility] Vaccine (3+ yrs) 00:[facility] 2014-01-30 Completed [facility] Conjugate, PCV13 00:00:00 [facility] dical (Prevnar 13) Branch Influenza Virus 2014-01-30 Completed [facility] Vaccine (3+ yrs) 00:[facility] 2014-01-30 Completed [facility] Conjugate, PCV13 00:00:00 [facility] dical (Prevnar 13) Branch Influenza Virus 2014-01-30 Completed [facility] Vaccine (3+ yrs) 00:00:00 [facility] Pneumococcal 13 2014-01-30 Completed [facility] Conjugate, PCV13 00:00:00 [facility] dical (Prevnar 13) Branch Influenza Virus 2014-01-30 Completed [facility] Vaccine (3+ yrs) 00:00:00 [facility] Pneumococcal 13 2014-01-30 Completed [facility] Conjugate, PCV13 00:00:00 [facility] dical (Prevnar 13) Branch Influenza Virus 2014-01-30 Completed [facility] Vaccine (3+ yrs) 00:00:00 [facility] Pneumococcal 13 2014-01-30 Completed [facility] Conjugate, PCV13 00:00:00 [facility] dical (Prevnar 13) Branch Influenza [...] [facility] Vaccine (3+ yrs) 00:00:00 [facility] Pneumococcal 13 2014-01-30 Completed [facility] Conjugate, PCV13 00:00:00 [place] [facility] (Prevnar 13) Branch Influenza Virus 2014-01-30 Completed [facility] Vaccine (3+ yrs) 00:00:00 [facility] Branch Pneumococcal 13 2014-01-30 Completed [facility] Conjugate, PCV13 00:00:00 [place] [facility] (Prevnar 13) Branch Influenza Virus 2014-01-30 Completed [facility] Vaccine (3+ yrs) 00:00:00 [facility] Pneumococcal 13 2014-01-30 Completed [facility] Conjugate, PCV13 00:00:00 [facility] dical (Prevnar 13) Branch Influenza Virus 2014-01-30 Completed [facility] Vaccine (3+ yrs) 00:00:00 [facility] Branch Pneumococcal 13 2014-01-30 Completed [facility] of Conjugate, PCV13 00:00:00 [facility] (Prevnar 13) Branch Influenza Virus 2014-01-30 Completed [facility] Vaccine (3+ yrs) 00:00:00 [facility] Branch Pneumococcal 13 2014-01-30 Completed [facility] of Conjugate, PCV13 00:00:00 [facility] dical (Prevnar 13) Branch Influenza Virus 2014-01-30 Completed [facility] Vaccine (3+ yrs) 00:00:00 [facility] Branch Pneumococcal 13 2014-01-30 Completed [facility] of Conjugate, PCV13 00:00:00 [facility] dical (Prevnar 13) Branch Influenza Virus 2014-01-30 Completed [facility] of Vaccine (3+ yrs) 00:00:00 [facility] Branch Pneumococcal 13 2014-01-30 Completed [facility] of Conjugate, PCV13 00:00:00 [facility] dical (Prevnar 13) Branch Influenza Virus 2014-01-30 Completed [facility] of Vaccine (3+ yrs) 00:00:00 [facility] Branch Pneumococcal 13 2014-01-30 Completed [facility] of Conjugate, PCV13 00:00:00 [facility] dical (Prevnar 13) Branch Influenza Virus 2014-01-30 Completed [facility] of Vaccine (3+ yrs) 00:00:00 [facility] Branch Pneumococcal 13 2014-01-30 Completed [facility] of Conjugate, PCV13 00:00:00 [facility] (Prevnar 13) Branch Influenza Virus 2014-01-30 Completed [facility] of Vaccine (3+ yrs) 00:00:00 [facility] Branch Pneumococcal 13 2014-01-30 Completed [facility] of Conjugate, PCV13 00:00:00 [facility] (Prevnar 13) Branch Influenza Virus 2014-01-30 Completed [facility] of Vaccine (3+ yrs) 00:00:00 [facility] Branch Pneumococcal 13 2014-01-30 Completed [facility] of Conjugate, PCV13 00:00:00 [facility] dical (Prevnar 13) Branch Pneumococcal 2012-02-16 Completed [facility] o f Polysaccharide, 00:00:00 [facility] PPSV23 (PNEUMOVAX) Branch Influenza Virus 2012-02-16 Completed [facility] of Vaccine 00:00:00 [facility] PPD (TB) 2012-02-16 Completed [facility] of 00:00:00 [facility] Pneumococcal 2012-02-16 Completed [facility] o f Polysaccharide, 00:00:00 [place] [facility] PPSV23 (PNEUMOVAX) Branch Influenza Virus 2012-02-16 Completed [facility] of Vaccine 00:00:00 [facility] PPD (TB) 2012-02-16 Completed [facility] of 00:00:00 [facility] Pneumococcal 2012-02-16 Completed [facility] o f Polysaccharide, 00:00:00 [place] [facility] PPSV23 (PNEUMOVAX) Branch Influenza Virus 2012-02-16 Completed [facility] of Vaccine 00:00:00 [facility] PPD (TB) 2012-02-16 Completed [facility] of 00:00:00 [facility] Pneumococcal 2012-02-16 Completed [facility] o f Polysaccharide, 00:00:00 [place] [facility] PPSV23 (PNEUMOVAX) Branch Influenza Virus 2012-02-16 Completed [facility] of Vaccine 00:00:00 [facility] PPD (TB) 2012-02-16 Completed [facility] of 00:00:00 [facility] Pneumococcal 2012-02-16 Completed [facility] o f Polysaccharide, 00:00:00 [facility] PPSV23 (PNEUMOVAX) Branch Influenza Virus 2012-02-16 Completed [facility] of Vaccine 00:00:00 [facility] PPD (TB) 2012-02-16 Completed [facility] of 00:00:00 [facility] Pneumococcal 2012-02-16 Completed [facility] o f Polysaccharide, 00:00:00 [place] [facility] PPSV23 (PNEUMOVAX) Branch Influenza Virus 2012-02-16 Completed [facility] of Vaccine 00:00:00 [facility] PPD (TB) 2012-02-16 Completed [facility] of 00:00:00 [facility] Pneumococcal 2012-02-16 Completed [facility] o f Polysaccharide, 00:00:00 [place] [facility] PPSV23 (PNEUMOVAX) Branch Influenza Virus 2012-02-16 Completed [facility] of Vaccine 00:00:00 [facility] PPD (TB) 2012-02-16 Completed [facility] of 00:00:00 [facility] Pneumococcal 2012-02-16 Completed [facility] o f Polysaccharide, 00:00:00 [place] [facility] PPSV23 (PNEUMOVAX) Branch Influenza Virus 2012-02-16 Completed [facility] of Vaccine 00:00:00 [facility] PPD (TB) 2012-02-16 Completed [facility] of 00:00:00 [facility] Pneumococcal 2012-02-16 Completed [facility] o f Polysaccharide, 00:00:00 [place] [facility] PPSV23 (PNEUMOVAX) Branch Influenza Virus 2012-02-16 Completed [facility] of Vaccine 00:00:00 [facility] PPD (TB) 2012-02-16 Completed [facility] of 00:00:00 [facility] Pneumococcal 2012-02-16 Completed [facility] o f Polysaccharide, 00:00:00 [place] [facility] PPSV23 (PNEUMOVAX) Branch Influenza Virus 2012-02-16 Completed [facility] of Vaccine 00:00:00 [facility] PPD (TB) 2012-02-16 Completed [facility] of 00:00:00 [facility] Pneumococcal 2012-02-16 Completed [facility] o f Polysaccharide, 00:00:00 [place] [facility] PPSV23 (PNEUMOVAX) Branch Influenza Virus 2012-02-16 Completed [facility] of Vaccine 00:00:00 [facility] PPD (TB) 2012-02-16 Completed [facility] of 00:00:00 [facility] Pneumococcal 2012-02-16 Completed [facility] o f Polysaccharide, 00:00:00 [place] [facility] PPSV23 (PNEUMOVAX) Branch Influenza Virus 2012-02-16 Completed [facility] of Vaccine 00:00:00 [facility] PPD (TB) 2012-02-16 Completed [facility] of 00:00:00 [facility] Pneumococcal 2012-02-16 Completed [facility] o f Polysaccharide, 00:00:00 [place] [facility] PPSV23 (PNEUMOVAX) Branch Influenza Virus 2012-02-16 Completed [facility] of Vaccine 00:00:00 [facility] PPD (TB) 2012-02-16 Completed [facility] of 00:00:00 [facility] Pneumococcal 2012-02-16 Completed [facility] o f Polysaccharide, 00:00:00 [place] [facility] PPSV23 (PNEUMOVAX) Branch Influenza Virus 2012-02-16 Completed [facility] of Vaccine 00:00:00 [facility] PPD (TB) 2012-02-16 Completed [facility] of 00:00:00 [facility] Pneumococcal 2012-02-16 Completed [facility] o f Polysaccharide, 00:00:00 [place] [facility] PPSV23 (PNEUMOVAX) Branch Influenza Virus 2012-02-16 Completed [facility] of Vaccine 00:00:00 [facility] PPD (TB) 2012-02-16 Completed [facility] of 00:00:00 [facility] Pneumococcal 2012-02-16 Completed [facility] o f Polysaccharide, 00:00:00 [place] [facility] PPSV23 (PNEUMOVAX) Branch Influenza Virus 2012-02-16 Completed [facility] of Vaccine 00:00:00 [facility] PPD (TB) 2012-02-16 Completed [facility] of 00:00:00 [facility] Pneumococcal 2012-02-16 Completed [facility] o f Polysaccharide, 00:00:00 [place] [facility] PPSV23 (PNEUMOVAX) Branch Influenza Virus 2012-02-16 Completed [facility] of Vaccine 00:00:00 [facility] PPD (TB) 2012-02-16 Completed [facility] of 00:00:00 [facility] Pneumococcal 2012-02-16 Completed [facility] o f Polysaccharide, 00:00:00 [place] [facility] PPSV23 (PNEUMOVAX) Branch Influenza Virus 2012-02-16 Completed [facility] of Vaccine 00:00:00 [facility] PPD (TB) 2012-02-16 Completed [facility] of 00:00:00 [facility] Pneumococcal 2012-02-16 Completed [facility] o f Polysaccharide, 00:00:00 [place] [facility] PPSV23 (PNEUMOVAX) Branch Influenza Virus 2012-02-16 Completed [facility] of Vaccine 00:00:00 [facility] PPD (TB) 2012-02-16 Completed [facility] of 00:00:00 [facility] Pneumococcal 2012-02-16 Completed [facility] o f Polysaccharide, 00:00:00 [place] [facility] PPSV23 (PNEUMOVAX) Branch Influenza Virus 2012-02-16 Completed [facility] of Vaccine 00:00:00 [facility] PPD (TB) 2012-02-16 Completed [facility] of 00:00:00 [facility] Pneumococcal 2012-02-16 Completed [facility] o f Polysaccharide, 00:00:00 [place] [facility] PPSV23 (PNEUMOVAX) Branch Influenza Virus 2012-02-16 Completed [facility] of Vaccine 00:00:00 [facility] PPD (TB) 2012-02-16 Completed [facility] of 00:00:00 [facility] Pneumococcal 2012-02-16 Completed [facility] o f Polysaccharide, 00:00:00 [place] [facility] PPSV23 (PNEUMOVAX) Branch Influenza Virus 2012-02-16 Completed [facility] of Vaccine 00:00:00 [facility] PPD (TB) 2012-02-16 Completed University [...] 2011-03-17 Completed Unive rsity of Dosage 00:00:00 [facility] Hep B, Adol or Pedi 2011-03-17 Completed Unive rsity of Dosage 00:00:00 [facility] Hep B, Adol or Pedi 2011-03-17 Completed Unive rsity of Dosage 00:00:00 [facility] Hep B, Adol or Pedi 2011-03-17 Completed Unive rsity of Dosage 00:00:00 [facility] Hep B, Adol or Pedi 2011-03-17 Completed Unive rsity of Dosage 00:00:00 [facility] Hep B, Adol or Pedi 2011-03-17 Completed Unive rsity of Dosage 00:00:00 [facility] Hep B, Adol or Pedi 2011-03-17 Completed Unive rsity of Dosage 00:00:00 [facility] Hep B, Adol or Pedi 2011-03-17 Completed Unive rsity of Dosage 00:00:00 [facility] Influenza Virus 2011-02-10 Completed [facility] of Vaccine 00:00:00 [facility] Hep B, Adol or Pedi 2011-02-10 Completed Unive rsity of Dosage 00:00:00 [facility] Influenza Virus 2011-02-10 Completed [facility] of Vaccine 00:00:00 [facility] Hep B, Adol or Pedi 2011-02-10 Completed Unive rsity of Dosage 00:00:00 [facility] Influenza Virus 2011-02-10 Completed [facility] of Vaccine 00:00:00 [facility] Hep B, Adol or Pedi 2011-02-10 Completed Unive rsity of Dosage 00:00:00 [facility] Influenza Virus 2011-02-10 Completed [facility] of Vaccine 00:00:00 [facility] Hep B, Adol or Pedi 2011-02-10 Completed Unive rsity of Dosage 00:00:00 [facility] Influenza Virus 2011-02-10 Completed [facility] of Vaccine 00:00:00 [facility] Hep B, Adol or Pedi 2011-02-10 Completed Unive rsity of Dosage 00:00:00 [facility] Influenza Virus 2011-02-10 Completed [facility] of Vaccine 00:00:00 [facility] Hep B, Adol or Pedi 2011-02-10 Completed Unive rsity of Dosage 00:00:00 [facility] Influenza Virus 2011-02-10 Completed [facility] of Vaccine 00:00:00 [facility] Hep B, Adol or Pedi 2011-02-10 Completed Unive rsity of Dosage 00:00:00 [facility] Influenza Virus 2011-02-10 Completed [facility] of Vaccine 00:00:00 [facility] Hep B, Adol or Pedi 2011-02-10 Completed [facility]ive rsity of Dosage 00:00:00 [facility] Influenza Virus 2011-02-10 Completed [facility] of Vaccine 00:00:00 [facility] Hep B, Adol or Pedi 2011-02-10 Completed Unive rsity of Dosage 00:00:00 [facility] Influenza Virus 2011-02-10 Completed [facility] of Vaccine 00:00:00 [facility] Hep B, Adol or Pedi 2011-02-10 Completed Unive rsity of Dosage 00:00:00 [facility] Influenza Virus 2011-02-10 Completed [facility] of Vaccine 00:00:00 [facility] Hep B, Adol or Pedi 2011-02-10 Completed [facility]ive rsity of Dosage 00:00:00 [facility] Influenza Virus 2011-02-10 Completed [facility] of Vaccine 00:00:00 [facility] Hep B, Adol or Pedi 2011-02-10 Completed [facility]ive rsity of Dosage 00:00:00 [facility] Influenza Virus 2011-02-10 Completed [facility] of Vaccine 00:00:00 [facility] Hep B, Adol or Pedi 2011-02-10 Completed [facility]ive rsity of Dosage 00:00:00 [facility] Influenza Virus 2011-02-10 Completed [facility] of Vaccine 00:00:00 [facility] Hep B, Adol or Pedi 2011-02-10 Completed Unive rsity of Dosage 00:00:00 [facility] Influenza Virus 2011-02-10 Completed [facility] of Vaccine 00:00:00 [facility] Hep B, Adol or Pedi 2011-02-10 Completed Unive rsity of Dosage 00:00:00 [facility] Influenza Virus 2011-02-10 Completed [facility] of Vaccine 00:00:00 [facility] Hep B, Adol or Pedi 2011-02-10 Completed [facility]ive rsity of Dosage 00:00:00 [facility] Influenza Virus 2011-02-10 Completed [facility] of Vaccine 00:00:00 [facility] Hep B, Adol or Pedi 2011-02-10 Completed [facility]ive rsity of Dosage 00:00:00 [facility] Influenza Virus 2011-02-10 Completed [facility] of Vaccine 00:00:00 [facility] Hep B, Adol or Pedi 2011-02-10 Completed [facility]ive rsity of Dosage 00:00:00 [facility] Influenza Virus 2011-02-10 Completed [facility] of Vaccine 00:00:00 [facility] Hep B, Adol or Pedi 2011-02-10 Completed [facility]ive rsity of Dosage 00:00:00 [facility] Influenza Virus 2011-02-10 Completed [facility] of Vaccine 00:00:00 [facility] Hep B, Adol or Pedi 2011-02-10 Completed [facility]ive rsity of Dosage 00:00:00 [facility] Influenza Virus 2011-02-10 Completed [facility] of Vaccine 00:00:00 [facility] Hep B, Adol or Pedi 2011-02-10 Completed [facility]ive rsity of Dosage 00:00:00 [facility] Influenza Virus 2011-02-10 Completed [facility] of Vaccine 00:00:00 [facility] Hep B, Adol or Pedi 2011-02-10 Completed [facility]ive rsity of Dosage 00:00:00 [facility] PPD (TB) 2010-11-18 Completed University of 00:00:00 [facility] TDAP (ADACEL) 2010-11-18 Completed University of VACCINE 00:00:00 [facility] PPD (TB) 2010-11-18 Completed [facility] of 00:00:00 [facility] TDAP (ADACEL) 2010-11-18 Completed University of VACCINE 00:00:00 [facility] PPD (TB) 2010-11-18 Completed [facility] of 00:00:00 [facility] TDAP (ADACEL) 2010-11-18 Completed University of VACCINE 00:00:00 [facility] PPD (TB) 2010-11-18 Completed [facility] of 00:00:00 [facility] TDAP (ADACEL) 2010-11-18 Completed University of VACCINE 00:00:00 [facility] PPD (TB) 2010-11-18 Completed [facility] of 00:00:00 [facility] TDAP (ADACEL) 2010-11-18 Completed University of VACCINE 00:00:00 [facility] PPD (TB) 2010-11-18 Completed [facility] of 00:00:00 [facility] TDAP (ADACEL) 2010-11-18 Completed University of VACCINE 00:00:00 [facility] PPD (TB) 2010-11-18 Completed [facility] of 00:00:00 [facility] TDAP (ADACEL) 2010-11-18 Completed University of VACCINE 00:00:00 [facility] PPD (TB) 2010-11-18 Completed [facility] of 00:00:00 [facility] TDAP (ADACEL) 2010-11-18 Completed University of VACCINE 00:00:00 [facility] PPD (TB) 2010-11-18 Completed [facility] of 00:00:00 [facility] TDAP (ADACEL) 2010-11-18 Completed [facility] of VACCINE 00:00:00 [facility] PPD (TB) 2010-11-18 Completed [facility] of 00:00:00 [facility] TDAP (ADACEL) 2010-11-18 Completed [facility] of VACCINE 00:00:00 [facility] PPD (TB) 2010-11-18 Completed [facility] of 00:00:00 [facility] TDAP (ADACEL) 2010-11-18 Completed [facility] of VACCINE 00:00:00 [facility] PPD (TB) 2010-11-18 Completed [facility] of 00:00:00 [facility] TDAP (ADACEL) 2010-11-18 Completed [facility] of VACCINE 00:00:00 [facility] PPD (TB) 2010-11-18 Completed [facility] of 00:00:00 [facility] TDAP (ADACEL) 2010-11-18 Completed [facility] of VACCINE 00:00:00 [facility] PPD (TB) 2010-11-18 Completed [facility] of 00:00:00 [facility] TDAP (ADACEL) 2010-11-18 Completed [facility] of VACCINE 00:00:00 [facility] PPD (TB) 2010-11-18 Completed [facility] of 00:00:00 [facility] TDAP (ADACEL) 2010-11-18 Completed [facility] of VACCINE 00:00:00 [facility] PPD (TB) 2010-11-18 Completed [facility] of 00:00:00 [facility] TDAP (ADACEL) 2010-11-18 Completed [facility] of VACCINE 00:00:00 [facility] PPD (TB) 2010-11-18 Completed [facility] of 00:00:00 [facility] TDAP (ADACEL) 2010-11-18 Completed [facility] of VACCINE 00:00:00 [facility] PPD (TB) 2010-11-18 Completed [facility] of 00:00:00 [facility] TDAP (ADACEL) 2010-11-18 Completed [facility] of VACCINE 00:00:00 [facility] PPD (TB) 2010-11-18 Completed [facility] of 00:00:00 [facility] TDAP (ADACEL) 2010-11-18 Completed University of VACCINE 00:00:00 [facility] PPD (TB) 2010-11-18 Completed [facility] of 00:00:00 [facility] TDAP (ADACEL) 2010-11-18 Completed [facility] of VACCINE 00:00:00 [facility] PPD (TB) 2010-11-18 Completed [facility] of 00:00:00 [facility] TDAP (ADACEL) 2010-11-18 Completed University of VACCINE 00:00:00 [facility] PPD (TB) 2010-11-18 Completed [facility] of 00:00:00 [facility] TDAP (ADACEL) 2010-11-18 Completed University of VACCINE 00:00:00 [facility] HEPATITIS A 2004-03-02 Completed University of 00:00:00 [facility] HEPATITIS A 2004-03-02 Completed University of 00:00:00 [facility] HEPATITIS A 2004-03-02 Completed [facility] of 00:00:00 [facility] HEPATITIS A 2004-03-02 Completed [facility] of 00:00:00 [facility] HEPATITIS A 2004-03-02 Completed [facility] of 00:00:00 [facility] HEPATITIS A 2004-03-02 Completed [facility] of 00:00:00 [facility] HEPATITIS A 2004-03-02 Completed [facility] of 00:00:00 [facility] HEPATITIS A 2004-03-02 Completed [facility] of 00:00:00 [facility] HEPATITIS A 2004-03-02 Completed [facility] of 00:00:00 [facility] HEPATITIS A 2004-03-02 Completed [facility] of 00:00:00 [facility] HEPATITIS A 2004-03-02 Completed [facility] of 00:00:00 [facility] HEPATITIS A 2004-03-02 Completed [facility] of 00:00:00 [facility] HEPATITIS A 2004-03-02 Completed [facility] of 00:00:00 [facility] HEPATITIS A 2004-03-02 Completed [facility] of 00:00:00 [facility] HEPATITIS A 2004-03-02 Completed [facility] of 00:00:00 [facility] HEPATITIS A 2004-03-02 Completed [facility] of 00:00:00 [facility] HEPATITIS A 2004-03-02 Completed [facility] of 00:00:00 [facility] HEPATITIS A 2004-03-02 Completed [facility] of 00:00:00 [facility] HEPATITIS A 2004-03-02 Completed [facility] of 00:00:00 [facility] HEPATITIS A 2004-03-02 Completed [facility] of 00:00:00 [facility] HEPATITIS A 2004-03-02 Completed [facility] of 00:00:00 [facility] HEPATITIS A 2004-03-02 Completed University [...] HEPATITIS A 2003-08-01 Completed [facility] of 00:00:00 [facility] HEPATITIS A 2003-08-01 Completed [facility] of 00:00:00 [facility] HEPATITIS A 2003-08-01 Completed [facility] of 00:00:00 [facility] HEPATITIS A 2003-08-01 Completed [facility] of 00:00:00 [facility] HEPATITIS A 2003-08-01 Completed [facility] of 00:00:00 [facility] HEPATITIS A 2003-08-01 Completed [facility] of 00:00:00 [facility] HEPATITIS A 2003-08-01 Completed [facility] of 00:00:00 [facility] HEPATITIS A 2003-08-01 Completed [facility] of 00:00:00 [facility] HEPATITIS A 2003-08-01 Completed [facility] of 00:00:00 [facility] HEPATITIS A 2003-08-01 Completed [facility] of 00:00:00 [facility] HEPATITIS A 2003-08-01 Completed [facility] of 00:00:00 [facility] HEPATITIS A 2003-08-01 Completed [facility] of 00:00:00 [facility] HEPATITIS A 2003-08-01 Completed [facility] of 00:00:00 [facility] HEPATITIS A 2003-08-01 Completed [facility] of 00:00:00 [facility] HEPATITIS A 2003-08-01 Completed [facility] of 00:00:00 [facility] HEPATITIS A 2003-08-01 Completed [facility] of 00:00:00 [facility] HEPATITIS A 2003-08-01 Completed [facility] of 00:00:00 [facility] HEPATITIS A 2003-08-01 Completed [facility] of 00:00:00 [facility] Pneumococcal 2001-10-04 Completed [facility] o f Polysaccharide, 00:00:00 [place] [facility] PPSV23 (PNEUMOVAX) Branch PPD (TB) 2001-10-04 Completed [facility] of 00:00:00 [facility] Pneumococcal 2001-10-04 Completed [facility] o f Polysaccharide, 00:00:00 [place] [facility] PPSV23 (PNEUMOVAX) Branch PPD (TB) 2001-10-04 Completed [facility] of 00:00:00 [facility] Pneumococcal 2001-10-04 Completed [facility] o f Polysaccharide, 00:00:00 [facility] PPSV23 (PNEUMOVAX) Branch PPD (TB) 2001-10-04 Completed [facility] of 00:00:00 [facility] Pneumococcal 2001-10-04 Completed [facility] o f Polysaccharide, 00:00:00 [place] [facility] PPSV23 (PNEUMOVAX) Branch PPD (TB) 2001-10-04 Completed [facility] of 00:00:00 [facility] Pneumococcal 2001-10-04 Completed [facility] o f Polysaccharide, 00:00:00 [place] [facility] PPSV23 (PNEUMOVAX) Branch PPD (TB) 2001-10-04 Completed [facility] of 00:00:00 [facility] Pneumococcal 2001-10-04 Completed [facility] o f Polysaccharide, 00:00:00 [place] [facility] PPSV23 (PNEUMOVAX) Branch PPD (TB) 2001-10-04 Completed [facility] of 00:00:00 [facility] Pneumococcal 2001-10-04 Completed [facility] o f Polysaccharide, 00:00:00 [place] [facility] PPSV23 (PNEUMOVAX) Branch PPD (TB) 2001-10-04 Completed [facility] of 00:00:00 [facility] Pneumococcal 2001-10-04 Completed [facility] o f Polysaccharide, 00:00:00 [facility] PPSV23 (PNEUMOVAX) Branch PPD (TB) 2001-10-04 Completed [facility] of 00:00:00 [facility] Pneumococcal 2001-10-04 Completed [facility] o f Polysaccharide, 00:00:00 [place] [facility] PPSV23 (PNEUMOVAX) Branch PPD (TB) 2001-10-04 Completed [facility] of 00:00:00 [facility] Pneumococcal 2001-10-04 Completed [facility] o f Polysaccharide, 00:00:00 [place] [facility] PPSV23 (PNEUMOVAX) Branch PPD (TB) 2001-10-04 Completed [facility] of 00:00:00 [facility] Pneumococcal 2001-10-04 Completed [facility] o f Polysaccharide, 00:00:00 [place] [facility] PPSV23 (PNEUMOVAX) Branch PPD (TB) 2001-10-04 Completed [facility] of 00:00:00 [facility] Pneumococcal 2001-10-04 Completed [facility] o f Polysaccharide, 00:00:00 [facility] PPSV23 (PNEUMOVAX) Branch PPD (TB) 2001-10-04 Completed [facility] of 00:00:00 [facility] Pneumococcal 2001-10-04 Completed [facility] o f Polysaccharide, 00:00:00 [place] [facility] PPSV23 (PNEUMOVAX) Branch PPD (TB) 2001-10-04 Completed University of 00:00:00 [facility] Pneumococcal 2001-10-04 Completed University o f Polysaccharide, 00:00:00 [place] [facility] PPSV23 (PNEUMOVAX) Branch PPD (TB) 2001-10-04 Completed University of 00:00:00 [facility] Pneumococcal 2001-10-04 Completed University o f Polysaccharide, 00:00:00 [place] [facility] PPSV23 (PNEUMOVAX) Branch PPD (TB) 2001-10-04 Completed University of 00:00:00 [facility] Pneumococcal 2001-10-04 Completed University o f Polysaccharide, 00:00:00 [place] [facility] PPSV23 (PNEUMOVAX) Branch PPD (TB) 2001-10-04 Completed University of 00:00:00 [facility] Pneumococcal 2001-10-04 Completed University o f Polysaccharide, 00:00:00 [place] [facility] PPSV23 (PNEUMOVAX) Branch PPD (TB) 2001-10-04 Completed University of 00:00:00 [facility] Pneumococcal 2001-10-04 Completed University o f Polysaccharide, 00:00:00 [place] [facility] PPSV23 (PNEUMOVAX) Branch PPD (TB) 2001-10-04 Completed University of 00:00:00 [facility] Pneumococcal 2001-10-04 Completed University o f Polysaccharide, 00:00:00 [place] [facility] PPSV23 (PNEUMOVAX) Branch PPD (TB) 2001-10-04 Completed University of 00:00:00 [facility] Pneumococcal 2001-10-04 Completed University o f Polysaccharide, 00:00:00 [place] [facility] PPSV23 (PNEUMOVAX) Branch PPD (TB) 2001-10-04 Completed University of 00:00:00 [facility] Pneumococcal 2001-10-04 Completed University o f Polysaccharide, 00:00:00 [place] [facility] PPSV23 (PNEUMOVAX) Branch PPD (TB) 2001-10-04 Completed University of 00:00:00 [facility] Pneumococcal 2001-10-04 Completed University o f Polysaccharide, 00:00:00 [place] [facility] PPSV23 (PNEUMOVAX) Branch PPD (TB) 2001-10-04 Completed University of 00:00:00 [facility] Vital Signs Vital Name Observation Time Observation Value Comments Source Systolic blood 2022-05-10 22:00:00 159 mm[Hg] Univer sity of pressure [facility] Diastolic blood 2022-05-10 22:00:00 87 mm[Hg] Unive rsity of pressure [facility] Heart rate 2022-05-10 22:00:00 56 /min [facility] Body temperature 2022-05-10 22:00:00 36.61 Amina [facility] 2022-05-10 22:00:00 17 /min [facility] Oxygen saturation in 2022-05-10 22:00:00 98 /min University of Arterial blood by [facility] Pulse oximetry Branch Body weight 2022-05-10 16:29:00 78.926 kg [facility] BMI 2022-05-10 16:29:00 29.87 kg/m2 [facility] Systolic blood 2022-05-08 22:30:00 168 mm[Hg] Univer sity of pressure [facility] Diastolic blood 2022-05-08 22:30:00 85 mm[Hg] Unive rsity of pressure [facility] Heart rate 2022-05-08 22:30:00 68 /min [facility] Oxygen saturation in 2022-05-08 22:30:00 100 /min University of Arterial blood by [facility] Pulse oximetry Branch Body temperature 2022-05-08 22:22:00 35.89 Amina [facility] Respiratory rate 2022-05-08 22:22:00 14 /min Univ ers[facility] [place] [facility] Body weight 2022-05-08 22:22:00 78.926 kg [facility] [place] [facility] BMI 2022-05-08 22:22:00 29.87 kg/m2 [facility] [place] [facility] Systolic blood 2022-05-07 00:00:00 149 mm[Hg] Univer sity of pressure [facility] Diastolic blood 2022-05-07 00:00:00 132 mm[Hg] Unive rsity of pressure [facility] Heart rate 2022-05-07 00:00:00 59 /min [facility] [place] [facility] Respiratory rate 2022-05-07 00:00:00 14 /min Univ ers[facility] [place] [facility] Oxygen saturation in 2022-05-07 00:00:00 99 /min University of Arterial blood by [facility] Pulse oximetry Branch Body temperature 2022-05-06 20:12:00 36.5 Amina [facility] [place] [facility] Body height 2022-05-06 20:12:00 162.6 cm [facility] [place] [facility] Body weight 2022-05-06 20:12:00 78.926 kg [facility] [place] [facility] BMI 2022-05-06 20:12:00 29.87 kg/m2 [facility] [place] [facility] Systolic blood 2022-04-22 19:50:00 156 mm[Hg] Univer sity of pressure [facility] Diastolic blood 2022-04-22 19:50:00 89 mm[Hg] Unive rsity of pressure [place] [facility] Heart rate 2022-04-22 19:50:00 69 /min [facility] [place] [facility] Body temperature 2022-04-22 19:50:00 36.67 Amina [facility] [place] [facility] Respiratory rate 2022-04-22 19:50:00 17 /min Univ ers[facility] [place] [facility] Body height 2022-04-22 19:50:00 162.6 cm [facility] [place] [facility] Body weight 2022-04-22 19:50:00 80.74 kg [facility] [place] [facility] BMI 2022-04-22 19:50:00 30.55 kg/m2 [facility] [place] [facility] Oxygen saturation in 2022-04-22 19:50:00 96 /min University of Arterial blood by [facility] Pulse oximetry Branch Systolic blood 2022-03-05 15:23:00 167 mm[Hg] Univer sity of pressure [place] [facility] Diastolic blood 2022-03-05 15:23:00 105 mm[Hg] Unive rsity of pressure [place] [facility] Heart rate 2022-03-05 15:23:00 49 /min [facility] [place] [facility] Body temperature 2022-03-05 15:18:00 36.67 Amina [facility] [place] [facility] Respiratory rate 2022-03-05 15:18:00 18 /min Univ ers[facility] [place] [facility] Body height 2022-03-05 15:18:00 162.6 cm [facility] [place] [facility] Body weight 2022-03-05 15:18:00 74.707 kg [facility] [place] [facility] BMI 2022-03-05 15:18:00 28.27 kg/m2 [facility] [place] [facility] Systolic blood 2022-02-16 21:41:00 169 mm[Hg] Univer sity of pressure [place] [facility] Diastolic blood 2022-02-16 21:41:00 86 mm[Hg] Unive rsity of pressure [facility] Heart rate 2022-02-16 21:41:00 51 /min [facility] [place] [facility] Body temperature 2022-02-16 21:41:00 36.56 Amina [facility] [place] [facility] Respiratory rate 2022-02-16 21:41:00 17 /min Univ [facility] [place] [facility] Oxygen saturation in 2022-02-16 21:41:00 98 /min University of Arterial blood by [facility] Pulse oximetry Branch Body height 2022-02-11 16:02:00 162.6 cm [facility] [place] [facility] Body weight 2022-02-11 16:02:00 79.379 kg [facility] [place] [facility] BMI 2022-02-11 16:02:00 30.04 kg/m2 [facility] [place] [facility] Systolic blood 2021-11-20 13:47:00 165 mm[Hg] Univer sity of pressure [place] [facility] Diastolic blood 2021-11-20 13:47:00 83 mm[Hg] Unive rsity of pressure [place] [facility] Heart rate 2021-11-20 13:47:00 58 /min [facility] [place] [facility] [place] Body temperature 2021-11-20 13:42:00 36.39 Amina [facility] [place] [facility] Respiratory rate 2021-11-20 13:42:00 16 /min Univ [facility] [place] [facility] [place] Body height 2021-11-20 13:42:00 162.6 cm [facility] [place] [facility] [place] Body weight 2021-11-20 13:42:00 84.369 kg [facility] [place] [facility] [place] BMI 2021-11-20 13:42:00 31.93 kg/m2 Universi ty of [facility] Systolic blood 2021-07-14 15:18:00 142 mm[Hg] [...] 22:00:00 159 mm[Hg] Univer sity of pressure [facility] Diastolic blood 2022-05-10 22:00:00 87 mm[Hg] Unive rsity of [facility] Heart rate 2022-05-10 22:00:00 56 /min [facility] [place] [facility] [place] Body temperature 2022-05-10 22:00:00 36.61 Amina Univ ersity of [facility] Respiratory rate 2022-05-10 22:00:00 17 /min [facility] Oxygen saturation in 2022-05-10 22:00:00 98 /min [facility] Arterial blood by [facility] Pulse oximetry Branch Body weight 2022-05-10 16:29:00 78.926 kg [facility] [place] [facility] [place] BMI 2022-05-10 16:29:00 29.87 kg/m2 Universi ty of [facility] Body height 2022-05-06 20:12:00 162.6 cm Universi ty of [facility] Systolic blood 2022-03-05 15:23:00 167 mm[Hg] Univer sity of pressure [facility] Diastolic blood 2022-03-05 15:23:00 105 mm[Hg] Unive rsity of pressure [facility] Heart rate 2022-03-05 15:23:00 49 /min Universi [facility] Body temperature 2022-03-05 15:18:00 36.67 Amina Univ ersity [facility] Respiratory rate 2022-03-05 15:18:00 18 /min [facility] Body height 2022-03-05 15:18:00 162.6 cm [facility] Body weight 2022-03-05 15:18:00 74.707 kg [facility] BMI 2022-03-05 15:18:00 28.27 kg/m2 [facility] Oxygen saturation in 2022-02-16 21:41:00 98 /min University Arterial blood by [facility] Pulse oximetry [place] Systolic blood 2020-12-08 15:48:00 125 mm[Hg] [facility] pressure Diastolic blood 2020-12-08 15:48:00 76 mm[Hg] [facility] pressure Heart rate 2020-12-08 15:48:00 64 /min [facility] Body temperature 2020-12-08 15:48:00 36.61 Amina [facility] Respiratory rate 2020-12-08 15:48:00 17 /min [facility] Body height 2020-12-08 15:48:00 162.6 cm [facility] Body weight 2020-12-08 15:48:00 98.884 kg [facility] BMI 2020-12-08 15:48:00 37.42 kg/m2 [facility] Oxygen saturation in 2020-12-08 15:48:00 97 /min [facility] Arterial blood by Pulse oximetry Respitory Rate 2020-08-30 13:00:00 Memraymond al Marty Systolic (mm Hg) 2020-08-30 13:00:00 Caesar rial [place] Diastolic (mm Hg) 2020-08-30 13:00:00 Mem orial Marty Systolic (mm Hg) 2020-08-30 11:00:00 Caesar rial [place] Diastolic (mm Hg) 2020-08-30 11:00:00 Mem orial Marty Temperature Oral (F) 2020-08-30 11:00:00 98.4 F [facility] Respitory Rate 2020-08-30 11:00:00 Memori al [place] Respitory Rate 2020-08-30 10:00:00 Memori al [place] Systolic (mm Hg) 2020-08-30 10:00:00 Caesar rial [place] Diastolic (mm Hg) 2020-08-30 10:00:00 Mem orial Marty Temperature Oral (F) 2020-08-30 00:00:00 96.9 F [facility] Temperature Oral (F) 2020-08-29 11:26:00 97.6 F [facility] Marty Height 2020-08-29 10:30:00 162.56 cm [facility] Weight 2020-08-29 10:30:00 [facility] BMI Calculated 2020-08-29 10:30:00 Darien Hammond Procedures Procedure Date / Time Performing Clinician Source Performed URINALYSIS 2022-05-10 19:36:00 Home Matthews [facility] TROPONIN I 2022-05-10 18:34:00 Home Matthews [facility] COMP. METABOLIC PANEL 2022-05-10 18:34:00 Home Matthews [facility] ([id number]) [facility] CBC WITH DIFF 2022-05-10 18:34:00 Home Matthews [facility] XR CHEST 2 VW 2022-05-10 17:24:58 Home Matthews [facility] CONSENT/REFUSAL FOR 2022-05-10 16:26:23 Doctor Unassigned, [facility] DIAGNOSIS AND TREATMENT [place] [facility] CONSENT/REFUSAL FOR 2022-05-10 16:26:09 Doctor Unassigned, [facility] DIAGNOSIS AND TREATMENT [place] [facility] URINALYSIS 2022-05-08 22:43:00 Theresa Hickman [facility] XR CHEST 2 VW 2022-05-06 22:56:53 Anette Olea [facility] COMP. METABOLIC PANEL 2022-05-06 22:14:00 Anette Olea [facility] ([id number]) Medical Branch CBC WITH DIFF 2022-05-06 22:14:00 Anette Olea [facility] COVID-19 (ID NOW RAPID 2022-05-06 22:14:00 Anette Olea [facility] TESTING) Medical Branch BASIC METABOLIC PANEL (NA, 2022-04-22 21:23:00 Paulette Gray [facility] K, CL, CO2, GLUCOSE, BUN, Medica l Branch CREATININE, CA) CBC WITH DIFF 2022-04-22 21:23:00 Paulette Gray [facility] CONSENT/REFUSAL FOR 2022-04-22 19:45:46 Doctor Unassigned, [facility] DIAGNOSIS AND TREATMENT [place] [facility] SARS-COV-2 COVID-19 2022-03-05 16:09:27 [facility] DIMITRIS-SUCROSE VACCINE [address] [place] [address] YRS+, BIVALENT 0.3ML, IM, (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) FLU 2022-03-05 16:09:27 [facility] VACC(),65+YR,0.5 Medica l Branch ML,IM,ADJUVANTED,QUAD(FLUA D) FLU 2022-03-05 16:09:27 [facility] VACC(),65+YR,0.5 Medica l Branch ML,IM,ADJUVANTED,QUAD(FLUA D) SARS-COV-2 COVID-19 2022-03-05 16:09:27 [facility] DIMITRIS-SUCROSE VACCINE [address] [place] [address] YRS+, BIVALENT 0.3ML, IM, (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) MAGNESIUM 2022-02-15 09:41:00 Sofia Garcia [facility] BASIC METABOLIC PANEL (NA, 2022-02-15 09:41:00 Sofia Garcia [facility] K, CL, CO2, GLUCOSE, BUN, Medica l Branch CREATININE, CA) CBC WITH DIFF 2022-02-15 09:41:00 Sofia Garcia [facility] N-TERMINAL PRO-BNP 2022-02-15 09:41:00 Sofia Garcia [facility] CBC WITH DIFF 2022-02-15 09:41:00 Radha [facility] BASIC METABOLIC PANEL (NA, 2022-02-15 09:41:00 [facility], GLUCOSE, BUN, Medica l Branch CREATININE, CA) MAGNESIUM 2022-02-15 09:41:00 Radha [facility] N-TERMINAL PRO-BNP 2022-02-15 09:41:00 Radha Sofia [facility] BASIC METABOLIC PANEL (NA, 2022-02-13 09:40:00 Sofia Garcia [facility] K, CL, CO2, GLUCOSE, BUN, Medica l Branch CREATININE, CA) CBC WITH DIFF 2022-02-13 09:40:00 Radha [facility] BASIC METABOLIC PANEL (NA, 2022-02-13 09:40:00 Radah [facility] K, CL, CO2, GLUCOSE, BUN, Medica l Branch CREATININE, CA) CBC WITH DIFF 2022-02-13 09:40:00 Radha [facility] TROPONIN I 2022-02-11 23:41:00 Radha [facility] N-TERMINAL PRO-BNP 2022-02-11 23:41:00 Sofia Garcia [facility] TROPONIN I 2022-02-11 23:41:00 Sofia Garcia [facility] N-TERMINAL PRO-BNP 2022-02-11 23:41:00 Sofia Garcia [facility] HB ECG ROUTINE & RHYTHM 2022-02-11 22:15:36 [facility] (TTE) 2022-02-11 21:26:50 [facility] 2022-02-11 21:26:50 [facility] 2022-02-11 07:45:43 Reilly Means [facility] CT ABDOMEN PELVIS W 2022-02-11 07:45:43 Reilly Means [facility] CONTRAST [facility] RAPID INFLUENZA A/B 2022-02-11 06:54:00 Reilly Means [facility] RAPID INFLUENZA A/B 2022-02-11 06:54:00 Reilly Means [facility] URINALYSIS 2022-02-11 06:45:00 Reilly Means [facility] URINE CULTURE 2022-02-11 06:45:00 Reilly Means [facility] URINALYSIS 2022-02-11 06:45:00 Reilly Means [facility] URINE CULTURE 2022-02-11 06:45:00 Reilly Means [facility] HB ECG ROUTINE & RHYTHM 2022-02-11 05:22:08 Reilly Means [facility] HB ECG ROUTINE & RHYTHM 2022-02-11 05:22:08 Reilly Means [facility] BLOOD CULTURE SCREEN 2022-02-11 04:58:00 Reilly Means [facility] TROPONIN I 2022-02-11 04:58:00 Reilly Means [facility] COMP. METABOLIC PANEL 2022-02-11 04:58:00 Reilly Means [facility] ([id number]) [facility] CBC WITH DIFF 2022-02-11 04:58:00 Reilly Means [facility] PROTHROMBIN TIME / INR 2022-02-11 04:58:00 Reilly Means [facility] ACTIVATED PARTIAL THRMPLAS 2022-02-11 04:58:00 Reilly [facility] N-TERMINAL PRO-BNP 2022-02-11 04:58:00 Reilly Means [facility] LACTIC ACID WHOLE BLOOD 2022-02-11 04:58:00 Reilly Means [facility] COVID-19 (ID NOW RAPID 2022-02-11 04:58:00 Reilly Means [facility] TESTING) Medical Branch LAB ONLY COVID 2022-02-11 04:58:00 Reilly Means [facility] CBC WITH DIFF 2022-02-11 04:58:00 Reilly Means [facility] ACTIVATED PARTIAL THRMPLAS 2022-02-11 04:58:00 Reilly [facility] PROTHROMBIN TIME / INR 2022-02-11 04:58:00 Reilly Means [facility] COVID-19 (ID NOW RAPID 2022-02-11 04:58:00 Reilly Means [facility] TESTING) Medical Branch COMP. METABOLIC PANEL 2022-02-11 04:58:00 Reilly Means [facility] ([id number]) Medical Branch TROPONIN I 2022-02-11 04:58:00 Reilly Means [facility] N-TERMINAL PRO-BNP 2022-02-11 04:58:00 Reilly Means [facility] BLOOD CULTURE SCREEN 2022-02-11 04:58:00 Reilly Means [facility] LACTIC ACID WHOLE BLOOD 2022-02-11 04:58:00 Reilly Means [facility] LAB ONLY COVID 2022-02-11 04:58:00 Reilly Means [facility] XR CHEST 1 VW 2022-02-11 04:27:42 Reilly Means [facility] XR CHEST 1 VW 2022-02-11 04:27:42 Reilly Means [facility] HOSPITAL ADMISSION 2022-02-10 05:01:00 Doctor Unassigned, [facility] Name [facility] [place] HOSPITAL ADMISSION 2022-02-10 05:01:00 Doctor Unassigned, [facility] [place] ECG 12-LEAD 2021-07-14 15:14:00 Elan Lira [facility] [id number] 2021-06-17 00:00:00 RIKY Freedman [facility] GASTROINTESTINAL PANEL 2020-12-08 22:21:00 Eliseo Arce [facility] XR ABDOMEN 1 VW 2020-12-08 18:06:32 Eliseo Arce spital OR [place] < 1 HOUR 2020-09-05 22:39:00 Eliseo Arce SURGICAL PATHOLOGY REQUEST 2020-09-05 21:54:00 Eliseo Arce [facility] XR CHEST 1 VW PORTABLE 2020-09-05 19:55:00 Eliseo Arce [facility] DISCHARGE PATIENT 2020-09-05 17:27:55 Lucas Harris [facility] AL AN ELECTIVE 2020-09-05 16:47:23 Kirit Flood [facility] ENDOTRACHEAL AIRWAY EGD, INTRAOPERATIVE 2020-09-05 16:27:00 Eliseo Arce [facility] PARTIAL THROMBOPLASTIN 2020-09-05 15:04:00 [facility] TIME (PTT) M. PROTHROMBIN TIME WITH INR 2020-09-05 15:04:00 Mindy Maharaj [facility] M. Plan of Care Planned Activity Planned Date Details Comments Source Future Scheduled 2022-12-23 Screening for [facility] Test 06:27:39 malignant neoplasm of colon (procedure) [code = 630438531] Future Scheduled 2022-12-23 Screening for [facility] Test 06:27:39 malignant neoplasm of colon (procedure) [code = 038771684] Future Scheduled 2022-12-23 Screening for [facility] Test 06:27:39 malignant neoplasm of colon (procedure) [code = 083411164] Future Scheduled 2022-12-23 SHINGLES VACCINES (1 Met [facility] Test 06:27:39 of 2) [code = SHINGLES VACCINES (1 of 2)] Future Scheduled 2022-12-23 BREAST CANCER [facility] Test 06:27:39 SCREENING [code = BREAST CANCER SCREENING] Future Scheduled 2022-12-23 Screening for [facility] Test 06:27:39 malignant neoplasm of colon (procedure) [code = 181201401] Future Scheduled 2022-12-23 Screening for [facility] Test 06:27:39 malignant neoplasm of colon (procedure) [code = 453500069] Future Scheduled 2022-12-23 HEPATITIS B VACCINES Met [facility] Test 06:27:39 (1 of 3 - Risk 3-dose series) [code = HEPATITIS B VACCINES (1 of 3 - Risk 3-dose series)] Future Scheduled 2022-12-23 COVID-19 VACCINE (3 - Me [facility] Test 06:27:39 Pfizer series) [code = COVID-19 VACCINE (3 - Pfizer series)] Future Scheduled 2022-12-23 65+ PNEUMOCOCCAL [facility] Test 06:27:39 VACCINE (4 - PPSV23 if available, else PCV20) [code = 65+ PNEUMOCOCCAL VACCINE (4 - PPSV23 if available, else PCV20)] Future Scheduled 2022-12-23 INFLUENZA VACCINE [facility] Test 06:27:39 [code = INFLUENZA VACCINE] Future Scheduled 2022-12-23 Screening for [facility] Test 06:27:39 malignant neoplasm of colon (procedure) [code = 272846190] Future Scheduled 2022-12-23 Screening for [facility] Test 06:27:39 malignant neoplasm of colon (procedure) [code = 833257433] Future Scheduled 2022-12-23 Screening for [facility] Test 06:27:39 malignant neoplasm of colon (procedure) [code = 800381750] Future Scheduled 2022-12-23 SHINGLES VACCINES (1 Met [facility] Test 06:27:39 of 2) [code = SHINGLES VACCINES (1 of 2)] Future Scheduled 2022-12-23 BREAST CANCER [facility] Test 06:27:39 SCREENING [code = BREAST CANCER SCREENING] Future Scheduled 2022-12-23 Screening for [facility] Test 06:27:39 malignant neoplasm of colon (procedure) [code = 501227431] Future Scheduled 2022-12-23 Screening for [facility] Test 06:27:39 malignant neoplasm of colon (procedure) [code = 093463163] Future Scheduled 2022-12-23 HEPATITIS B VACCINES Met [facility] Test 06:27:39 (1 of 3 - Risk 3-dose series) [code = HEPATITIS B VACCINES (1 of 3 - Risk 3-dose series)] Future Scheduled 2022-12-23 COVID-19 VACCINE (3 - Me [facility] Test 06:27:39 Pfizer series) [code = COVID-19 VACCINE (3 - Pfizer series)] Future Scheduled 2022-12-23 65+ PNEUMOCOCCAL [facility] Test 06:27:39 VACCINE (4 - PPSV23 if available, else PCV20) [code = 65+ PNEUMOCOCCAL VACCINE (4 - PPSV23 if available, else PCV20)] Future Scheduled 2022-12-23 [facility]ACCINE [facility] 06:27:39 [code = INFLUENZA VACCINE] Future Scheduled 2022-12-13 [facility] Test 16:46:16 malignant neoplasm of colon (procedure) [code = 009662950] Future Scheduled 2022-12-13 [facility] Test 16:46:16 malignant neoplasm of colon (procedure) [code = 303598674] Future Scheduled 2022-12-13 [facility] Test 16:46:16 malignant neoplasm of colon (procedure) [code = 085072110] Future Scheduled 2022-12-13 SHINGLES VACCINES (1 Met [facility] Test 16:46:16 of 2) [code = SHINGLES VACCINES (1 of 2)] Future Scheduled 2022-12-13 BREAST CANCER [facility] Test 16:46:16 SCREENING [code = BREAST CANCER SCREENING] Future Scheduled 2022-12-13 Screening for [facility] Test 16:46:16 malignant neoplasm of colon (procedure) [code = 976794950] Future Scheduled 2022-12-13 Screening for [facility] Test 16:46:16 malignant neoplasm of colon (procedure) [code = 363436042] Future Scheduled 2022-12-13 HEPATITIS B VACCINES Met [facility] Test 16:46:16 (1 of 3 - Risk 3-dose series) [code = HEPATITIS B VACCINES (1 of 3 - Risk 3-dose series)] Future Scheduled 2022-12-13 COVID-19 VACCINE (3 - Me [facility] Test 16:46:16 Pfizer series) [code = COVID-19 VACCINE (3 - Pfizer series)] Future Scheduled 2022-12-13 65+ [facility] 16:46[facility]16 VACCINE (4 - PPSV23 if available, else PCV20) [code = 65+ PNEUMOCOCCAL VACCINE (4 - PPSV23 if available, else PCV20)] Future Scheduled 2022-12-13 INFLUENZA VACCINE [facility] Test 16:46:16 [code = INFLUENZA VACCINE] Future Scheduled 2022-12-13 Screening for [facility] Test 16:46:16 malignant neoplasm of colon (procedure) [code = [id number]] Future Scheduled 2022-12-13 Screening for [facility] Test 16:46:16 malignant neoplasm of colon (procedure) [code = 386882333] Future Scheduled 2022-12-13 Screening for [facility] Test 16:46:16 malignant neoplasm of colon (procedure) [code = 658262361] Future Scheduled 2022-12-13 SHINGLES VACCINES (1 Met [facility] Test 16:46:16 of 2) [code = SHINGLES VACCINES (1 of 2)] Future Scheduled 2022-12-13 BREAST CANCER [facility] Test 16:46:16 SCREENING [code = BREAST CANCER SCREENING] Future Scheduled 2022-12-13 Screening for [facility] Test 16:46:16 malignant neoplasm of colon (procedure) [code = 530456634] Future Scheduled 2022-12-13 Screening for [facility] Test 16:46:16 malignant neoplasm of colon (procedure) [code = 756881445] Future Scheduled 2022-12-13 HEPATITIS B VACCINES Met [facility] Test 16:46:16 (1 of 3 - Risk 3-dose series) [code = HEPATITIS B VACCINES (1 of 3 - Risk 3-dose series)] Future Scheduled 2022-12-13 COVID-19 VACCINE (3 - Me [facility] Test 16:46:16 Pfizer series) [code = COVID-19 VACCINE (3 - Pfizer series)] Future Scheduled 2022-12-13 65+ PNEUMOCOCCAL [facility] Test 16:46:16 VACCINE (4 - PPSV23 if available, else PCV20) [code = 65+ PNEUMOCOCCAL VACCINE (4 - PPSV23 if available, else PCV20)] Future Scheduled 2022-12-13 INFLUENZA VACCINE [facility] Test 16:46:16 [code = INFLUENZA VACCINE] Future Scheduled 2022-12-13 Screening for [facility] Test 16:46:16 malignant neoplasm of colon (procedure) [code = [id number]] Future Scheduled 2022-12-13 Screening for [facility] Test 16:46:16 malignant neoplasm of colon (procedure) [code = 725961714] Future Scheduled 2022-12-13 Screening for [facility] Test 16:46:16 malignant neoplasm of colon (procedure) [code = 932467501] Future Scheduled 2022-12-13 SHINGLES VACCINES (1 Met [facility] Test 16:46:16 of 2) [code = SHINGLES VACCINES (1 of 2)] Future Scheduled 2022-12-13 BREAST CANCER [facility] Test 16:46:16 SCREENING [code = BREAST CANCER SCREENING] Future Scheduled 2022-12-13 Screening for [facility] Test 16:46:16 malignant neoplasm of colon (procedure) [code = 111050920] Future Scheduled 2022-12-13 Screening for [facility] Test 16:46:16 malignant neoplasm of colon (procedure) [code = 420766469] Future Scheduled 2022-12-13 HEPATITIS B VACCINES Met [facility] Test 16:46:16 (1 of 3 - Risk 3-dose series) [code = HEPATITIS B VACCINES (1 of 3 - Risk 3-dose series)] Future Scheduled 2022-12-13 COVID-19 VACCINE (3 - Me [facility] Test 16:46:16 Pfizer series) [code = COVID-19 VACCINE (3 - Pfizer series)] Future Scheduled 2022-12-13 65+ PNEUMOCOCCAL [facility] Test 16:46:16 VACCINE (4 - PPSV23 if available, else PCV20) [code = 65+ PNEUMOCOCCAL VACCINE (4 - PPSV23 if available, else PCV20)] Future Scheduled 2022-12-13 INFLUENZA VACCINE [facility] Test 16:46:16 [code = INFLUENZA VACCINE] Future Scheduled 2022-11-11 Screening for [facility] Test 09:27:47 malignant neoplasm of colon (procedure) [code = 152989903] Future Scheduled 2022-11-11 Screening for [facility] Test 09:27:47 malignant neoplasm of colon (procedure) [code = 252520549] Future Scheduled 2022-11-11 Screening for [facility] Test 09:27:47 malignant neoplasm of colon (procedure) [code = 173545975] Future Scheduled 2022-11-11 SHINGLES VACCINES (1 Met [facility] Test 09:27:47 of 2) [code = SHINGLES VACCINES (1 of 2)] Future Scheduled 2022-11-11 BREAST CANCER [facility] Test 09:27:47 SCREENING [code = BREAST CANCER SCREENING] Future Scheduled 2022-11-11 Screening for [facility] Test 09:27:47 malignant neoplasm of colon (procedure) [code = 347937390] Future Scheduled 2022-11-11 Screening for [facility] Test 09:27:47 malignant neoplasm of colon (procedure) [code = 857034862] Future Scheduled 2022-11-11 HEPATITIS B VACCINES Met [facility] Test 09:27:47 (1 of 3 - Risk 3-dose series) [code = HEPATITIS B VACCINES (1 of 3 - Risk 3-dose series)] Future Scheduled 2022-11-11 COVID-19 VACCINE (3 - [facility] Test 09:27:47 Pfizer series) [code = COVID-19 VACCINE (3 - Pfizer series)] Future Scheduled 2022-11-11 [address] [facility] Test 09:27:47 VACCINE (4 - PPSV23 if available, else PCV20) [code = 65+ PNEUMOCOCCAL VACCINE (4 - PPSV23 if available, else PCV20)] Future Scheduled 2022-11-11 INFLUENZA VACCINE [facility] Test 09:27:47 [code = INFLUENZA VACCINE] Future Scheduled 2022-11-11 Screening for [facility] Test 09:27:47 malignant neoplasm of colon (procedure) [code = 881176095] Future Scheduled 2022-11-11 Screening for [facility] Test 09:27:47 malignant neoplasm of colon (procedure) [code = 400018217] Future Scheduled 2022-11-11 Screening for [facility] Test 09:27:47 malignant neoplasm of colon (procedure) [code = 072124399] Future Scheduled 2022-11-11 SHINGLES VACCINES (1 Met [facility] Test 09:27:47 of 2) [code = SHINGLES VACCINES (1 of 2)] Future Scheduled 2022-11-11 BREAST CANCER [facility] Test 09:27:47 SCREENING [code = BREAST CANCER SCREENING] Future Scheduled 2022-11-11 Screening for [facility] Test 09:27:47 malignant neoplasm of colon (procedure) [code = 141468917] Future Scheduled 2022-11-11 Screening for [facility] Test 09:27:47 malignant neoplasm of colon (procedure) [code = 361895693] Future Scheduled 2022-11-11 HEPATITIS B VACCINES Met [facility] Test 09:27:47 (1 of 3 - Risk 3-dose series) [code = HEPATITIS B VACCINES (1 of 3 - Risk 3-dose series)] Future Scheduled 2022-11-11 COVID-19 VACCINE (3 - [facility] Test 09:27:47 Pfizer series) [code = COVID-19 VACCINE (3 - Pfizer series)] Future Scheduled 2022-11-11 65+ PNEUMOCOCCAL [facility] Test 09:27:47 VACCINE (4 - PPSV23 if available, else PCV20) [code = 65+ PNEUMOCOCCAL VACCINE (4 - PPSV23 if available, else PCV20)] Future Scheduled 2022-11-11 INFLUENZA VACCINE [facility] Test 09:27:47 [code = INFLUENZA VACCINE] Future Scheduled 2022-11-11 Screening for [facility] Test 09:27:47 malignant neoplasm of colon (procedure) [code = 686019984] Future Scheduled 2022-11-11 Screening for [facility] Test 09:27:47 malignant neoplasm of colon (procedure) [code = 534917349] Future Scheduled 2022-11-11 Screening for [facility] Test 09:27:47 malignant neoplasm of colon (procedure) [code = 161362132] Future Scheduled 2022-11-11 SHINGLES VACCINES (1 Met [facility] Test 09:27:47 of 2) [code = SHINGLES VACCINES (1 of 2)] Future Scheduled 2022-11-11 BREAST CANCER [facility] Test 09:27:47 SCREENING [code = BREAST CANCER SCREENING] Future Scheduled 2022-11-11 Screening for [facility] Test 09:27:47 malignant neoplasm of colon (procedure) [code = 465999133] Future Scheduled 2022-11-11 Screening for [facility] Test 09:27:47 malignant neoplasm of colon (procedure) [code = 133104918] Future Scheduled 2022-11-11 HEPATITIS B VACCINES Met [facility] Test 09:27:47 (1 of 3 - Risk 3-dose series) [code = HEPATITIS B VACCINES (1 of 3 - Risk 3-dose series)] Future Scheduled 2022-11-11 COVID-19 VACCINE (3 - Me [facility] Test 09:27:47 Pfizer series) [code = COVID-19 VACCINE (3 - Pfizer series)] Future Scheduled 2022-11-11 65+ PNEUMOCOCCAL [facility] Test 09:27:47 VACCINE (4 - PPSV23 if available, else PCV20) [code = 65+ PNEUMOCOCCAL VACCINE (4 - PPSV23 if available, else PCV20)] Future Scheduled 2022-11-11 INFLUENZA VACCINE [facility] Test 09:27:47 [code = INFLUENZA VACCINE] Future Scheduled 2022-10-27 Screening for [facility] Test 22:40:19 malignant neoplasm of colon (procedure) [code = 275244961] Future Scheduled 2022-10-27 Screening for [facility] Test 22:40:19 malignant neoplasm of colon (procedure) [code = 109651698] Future Scheduled 2022-10-27 Screening for [facility] Test 22:40:19 malignant neoplasm of colon (procedure) [code = 827549239] Future Scheduled 2022-10-27 SHINGLES VACCINES (1 Met [facility] Test 22:40:19 of 2) [code = SHINGLES VACCINES (1 of 2)] Future Scheduled 2022-10-27 BREAST CANCER [facility] Test 22:40:19 SCREENING [code = BREAST CANCER SCREENING] Future Scheduled 2022-10-27 Screening for [facility] Test 22:40:19 malignant neoplasm of colon (procedure) [code = 940627608] Future Scheduled 2022-10-27 Screening for [facility] Test 22:40:19 malignant neoplasm of colon (procedure) [code = 432523410] Future Scheduled 2022-10-27 HEPATITIS B VACCINES Met [facility] Test 22:40:19 (1 of 3 - Risk 3-dose series) [code = HEPATITIS B VACCINES (1 of 3 - Risk 3-dose series)] Future Scheduled 2022-10-27 COVID-19 VACCINE (3 - [facility] Test 22:40:19 Pfizer series) [code = COVID-19 VACCINE (3 - Pfizer series)] Future Scheduled 2022-10-27 65+ [facility]AL [facility] Test 22:40:19 VACCINE (4 - PPSV23 if available, else PCV20) [code = 65+ PNEUMOCOCCAL VACCINE (4 - PPSV23 if available, else PCV20)] Future Scheduled 2022-10-27 INFLUENZA VACCINE [facility] Test 22:40:19 [code = INFLUENZA VACCINE] Future Scheduled 2022-10-27 Screening for [facility] Test 22:40:19 malignant neoplasm of colon (procedure) [code = 914111189] Future Scheduled 2022-10-27 Screening for [facility] Test 22:40:19 malignant neoplasm of colon (procedure) [code = 015066145] Future Scheduled 2022-10-27 Screening for [facility] Test 22:40:19 malignant neoplasm of colon (procedure) [code = 448682553] Future Scheduled 2022-10-27 SHINGLES VACCINES (1 Met [facility] Test 22:40:19 of 2) [code = SHINGLES VACCINES (1 of 2)] Future Scheduled 2022-10-27 BREAST CANCER [facility] Test 22:40:19 SCREENING [code = BREAST CANCER SCREENING] Future Scheduled 2022-10-27 Screening for [facility] Test 22:40:19 malignant neoplasm of colon (procedure) [code = 086673973] Future Scheduled 2022-10-27 Screening for [facility] Test 22:40:19 malignant neoplasm of colon (procedure) [code = 210992414] Future Scheduled 2022-10-27 HEPATITIS B VACCINES Met [facility] Test 22:40:19 (1 of 3 - Risk 3-dose series) [code = HEPATITIS B VACCINES (1 of 3 - Risk 3-dose series)] Future Scheduled 2022-10-27 COVID-19 VACCINE (3 - [facility] Test 22:40:19 Pfizer series) [code = COVID-19 VACCINE (3 - Pfizer series)] Future Scheduled 2022-10-27 65+ PNEUMOCOCCAL [facility] Test 22:40:19 VACCINE (4 - PPSV23 if available, else PCV20) [code = 65+ PNEUMOCOCCAL VACCINE (4 - PPSV23 if available, else PCV20)] Future Scheduled 2022-10-27 INFLUENZA VACCINE [facility] Test 22:40:19 [code = INFLUENZA VACCINE] Future Scheduled 2022-09-10 SHINGLES VACCINES (1 Met [facility] Test 15:06:53 of 2) [code = SHINGLES VACCINES (1 of 2)] Future Scheduled 2022-09-10 BREAST CANCER [facility] Test 15:06:53 SCREENING [code = BREAST CANCER SCREENING] Future Scheduled 2022-09-10 COLONOSCOPY SCREENING [facility] Test 15:06:53 [code = COLONOSCOPY SCREENING] Future Scheduled 2022-09-10 HEPATITIS B VACCINES Met [facility] Test 15:06:53 (1 of 3 - Risk 3-dose series) [code = HEPATITIS B VACCINES (1 of 3 - Risk 3-dose series)] Future Scheduled 2022-09-10 COVID-19 VACCINE (3 - [facility] Test 15:06:53 Booster for Pfizer series) [code = COVID-19 VACCINE (3 - Booster for Pfizer series)] Future Scheduled 2022-09-10 65+ PNEUMOCOCCAL [facility] Test 15:06:53 VACCINE (4 - PPSV23 if available, else PCV20) [code = 65+ PNEUMOCOCCAL VACCINE (4 - PPSV23 if available, else PCV20)] Future Scheduled 2022-09-10 INFLUENZA VACCINE Method [facility] Test 15:06:53 [code = INFLUENZA VACCINE] Future Scheduled 2022-09-10 SHINGLES VACCINES (1 Met [facility] Test 15:06:53 of 2) [code = SHINGLES VACCINES (1 of 2)] Future Scheduled 2022-09-10 BREAST CANCER [facility] Test 15:06:53 SCREENING [code = BREAST CANCER SCREENING] Future Scheduled 2022-09-10 COLONOSCOPY SCREENING [facility] Test 15:06:53 [code = COLONOSCOPY SCREENING] Future Scheduled 2022-09-10 HEPATITIS B VACCINES Met [facility] Test 15:06:53 (1 of 3 - Risk 3-dose series) [code = HEPATITIS B VACCINES (1 of 3 - Risk 3-dose series)] Future Scheduled 2022-09-10 COVID-19 VACCINE (3 - Me [facility] Test 15:06:53 Booster for Pfizer series) [code = COVID-19 VACCINE (3 - Booster for Pfizer series)] Future Scheduled 2022-09-10 65+ [facility] VACCINE (4 - PPSV23 if available, else PCV20) [code = 65+ PNEUMOCOCCAL VACCINE (4 - PPSV23 if available, else PCV20)] Future Scheduled 2022-09-10 INFLUENZA VACCINE [facility] Test 15:06:53 [code = INFLUENZA VACCINE] Future Scheduled 2022-09-10 SHINGLES VACCINES (1 Met [facility] Test 15:06:53 of 2) [code = SHINGLES VACCINES (1 of 2)] Future Scheduled 2022-09-10 BREAST CANCER [facility] Test 15:06:53 SCREENING [code = BREAST CANCER SCREENING] Future Scheduled 2022-09-10 COLONOSCOPY SCREENING [facility] Test 15:06:53 [code = COLONOSCOPY SCREENING] Future Scheduled 2022-09-10 HEPATITIS B VACCINES Met [facility] Test 15:06:53 (1 of 3 - Risk 3-dose series) [code = HEPATITIS B VACCINES (1 of 3 - Risk 3-dose series)] Future Scheduled 2022-09-10 COVID-19 VACCINE (3 - Me [facility] Test 15:06:53 Booster for Pfizer series) [code = COVID-19 VACCINE (3 - Booster for Pfizer series)] Future Scheduled 2022-09-10 65+ PNEUMOCOCCAL [facility] Test 15:06:53 VACCINE (4 - PPSV23 if available, else PCV20) [code = 65+ PNEUMOCOCCAL VACCINE (4 - PPSV23 if available, else PCV20)] Future Scheduled 2022-09-10 INFLUENZA VACCINE Method [facility] Test 15:06:53 [code = INFLUENZA VACCINE] Future Scheduled 2022-09-10 SHINGLES VACCINES (1 Met [facility] Test 15:06:53 of 2) [code = SHINGLES VACCINES (1 of 2)] Future Scheduled 2022-09-10 BREAST CANCER [facility] Test 15:06:53 SCREENING [code = BREAST CANCER SCREENING] Future Scheduled 2022-09-10 COLONOSCOPY SCREENING [facility] Test 15:06:53 [code = COLONOSCOPY SCREENING] Future Scheduled 2022-09-10 HEPATITIS B VACCINES Met [facility] Test 15:06:53 (1 of 3 - Risk 3-dose series) [code = HEPATITIS B VACCINES (1 of 3 - Risk 3-dose series)] Future Scheduled 2022-09-10 COVID-19 VACCINE (3 - [facility] Test 15:06:53 Booster for Pfizer series) [code = COVID-19 VACCINE (3 - Booster for Pfizer series)] Future Scheduled 2022-09-10 65+ [facility]:06:[facility] VACCINE (4 - PPSV23 if available, else PCV20) [code = 65+ PNEUMOCOCCAL VACCINE (4 - PPSV23 if available, else PCV20)] Future Scheduled 2022-09-10 INFLUENZA VACCINE [facility] Test 15:06:53 [code = INFLUENZA VACCINE] Future Scheduled 2022-09-10 SHINGLES VACCINES (1 Met [facility] Test 15:06:53 of 2) [code = SHINGLES VACCINES (1 of 2)] Future Scheduled 2022-09-10 BREAST CANCER [facility] Test 15:06:53 SCREENING [code = BREAST CANCER SCREENING] Future Scheduled 2022-09-10 COLONOSCOPY SCREENING [facility] Test 15:06:53 [code = COLONOSCOPY SCREENING] Future Scheduled 2022-09-10 HEPATITIS B VACCINES Met [facility] Test 15:06:53 (1 of 3 - Risk 3-dose series) [code = HEPATITIS B VACCINES (1 of 3 - Risk 3-dose series)] Future Scheduled 2022-09-10 COVID-19 VACCINE (3 - Me [facility] Test 15:06:53 Booster for Pfizer series) [code = COVID-19 VACCINE (3 - Booster for Pfizer series)] Future Scheduled 2022-09-10 65+ [facility]:06:53 VACCINE (4 - PPSV23 if available, else PCV20) [code = 65+ PNEUMOCOCCAL VACCINE (4 - PPSV23 if available, else PCV20)] Future Scheduled 2022-09-10 INFLUENZA VACCINE Method [facility] Test 15:06:53 [code = INFLUENZA VACCINE] Future Scheduled 2022-09-10 SHINGLES VACCINES (1 Met [facility] Test 15:06:53 of 2) [code = SHINGLES VACCINES (1 of 2)] Future Scheduled 2022-09-10 BREAST CANCER [facility] Test 15:06:53 SCREENING [code = BREAST CANCER SCREENING] Future Scheduled 2022-09-10 COLONOSCOPY SCREENING [facility] Test 15:06:53 [code = COLONOSCOPY SCREENING] Future Scheduled 2022-09-10 HEPATITIS B VACCINES Met [facility] Test 15:06:53 (1 of 3 - Risk 3-dose series) [code = HEPATITIS B VACCINES (1 of 3 - Risk 3-dose series)] Future Scheduled 2022-09-10 COVID-19 VACCINE (3 - Me [facility] Test 15:06:53 Booster for Pfizer series) [code = COVID-19 VACCINE (3 - Booster for Pfizer series)] Future Scheduled 2022-09-10 65+ [facility] 15:06:53 VACCINE (4 - PPSV23 if available, else PCV20) [code = 65+ PNEUMOCOCCAL VACCINE (4 - PPSV23 if available, else PCV20)] Future Scheduled 2022-09-10 INFLUENZA VACCINE [facility] Test 15:06:53 [code = INFLUENZA VACCINE] Future Scheduled 2022-09-10 SHINGLES VACCINES (1 Met [facility] Test 15:06:53 of 2) [code = SHINGLES VACCINES (1 of 2)] Future Scheduled 2022-09-10 BREAST CANCER [facility] Test 15:06:53 SCREENING [code = BREAST CANCER SCREENING] Future Scheduled 2022-09-10 COLONOSCOPY SCREENING [facility] Test 15:06:53 [code = COLONOSCOPY SCREENING] Future Scheduled 2022-09-10 HEPATITIS B VACCINES Met [facility] Test 15:06:53 (1 of 3 - Risk 3-dose series) [code = HEPATITIS B VACCINES (1 of 3 - Risk 3-dose series)] Future Scheduled 2022-09-10 COVID-19 VACCINE (3 - [facility] Test 15:06:53 Booster for Pfizer series) [code = COVID-19 VACCINE (3 - Booster for Pfizer series)] Future Scheduled 2022-09-10 65+ [facility]:06:53 VACCINE (4 - PPSV23 if available, else PCV20) [code = 65+ PNEUMOCOCCAL VACCINE (4 - PPSV23 if available, else PCV20)] Future Scheduled 2022-09-10 INFLUENZA VACCINE [facility] Test 15:06:53 [code = INFLUENZA VACCINE] Future Scheduled 2022-09-10 SHINGLES VACCINES (1 Met [facility] Test 15:06:53 of 2) [code = SHINGLES VACCINES (1 of 2)] Future Scheduled 2022-09-10 BREAST CANCER [facility] Test 15:06:53 SCREENING [code = BREAST CANCER SCREENING] Future Scheduled 2022-09-10 COLONOSCOPY SCREENING [facility] Test 15:06:53 [code = COLONOSCOPY SCREENING] Future Scheduled 2022-09-10 HEPATITIS B VACCINES Met [facility] Test 15:06:53 (1 of 3 - Risk 3-dose series) [code = HEPATITIS B VACCINES (1 of 3 - Risk 3-dose series)] Future Scheduled 2022-09-10 COVID-19 VACCINE (3 - [facility] Test 15:06:53 Booster for Pfizer series) [code = COVID-19 VACCINE (3 - Booster for Pfizer series)] Future Scheduled 2022-09-10 65+ [facility] 15:06:53 VACCINE (4 - PPSV23 if available, else PCV20) [code = 65+ PNEUMOCOCCAL VACCINE (4 - PPSV23 if available, else PCV20)] Future Scheduled 2022-09-10 INFLUENZA VACCINE [facility] Test 15:06:53 [code = INFLUENZA VACCINE] Future Scheduled 2022-08-26 SHINGLES VACCINES (1 Met [facility] Test 14:43:48 of 2) [code = SHINGLES VACCINES (1 of 2)] Future Scheduled 2022-08-26 BREAST CANCER [facility] Test 14:43:48 SCREENING [code = BREAST CANCER SCREENING] Future Scheduled 2022-08-26 COLONOSCOPY SCREENING [facility] Test 14:43:48 [code = COLONOSCOPY SCREENING] Future Scheduled 2022-08-26 HEPATITIS B VACCINES Met [facility] Test 14:43:48 (1 of 3 - Risk 3-dose series) [code = HEPATITIS B VACCINES (1 of 3 - Risk 3-dose series)] Future Scheduled 2022-08-26 COVID-19 VACCINE (3 - Me [facility] Test 14:43:48 Booster for Pfizer series) [code = COVID-19 VACCINE (3 - Booster for Pfizer series)] Future Scheduled 2022-08-26 65+ [facility] 14:43:48 VACCINE (4 - PPSV23 if available, else PCV20) [code = 65+ PNEUMOCOCCAL VACCINE (4 - PPSV23 if available, else PCV20)] Future Scheduled 2022-08-26 INFLUENZA VACCINE Method [facility] Test 14:43:48 [code = INFLUENZA VACCINE] Future Scheduled 2022-08-07 SHINGLES VACCINES (1 Met [facility] Test 23:30:11 of 2) [code = SHINGLES VACCINES (1 of 2)] Future Scheduled 2022-08-07 BREAST CANCER [facility] Test 23:30:11 SCREENING [code = BREAST CANCER SCREENING] Future Scheduled 2022-08-07 COLONOSCOPY SCREENING [facility] Test 23:30:11 [code = COLONOSCOPY SCREENING] Future Scheduled 2022-08-07 HEPATITIS B VACCINES Met [facility] Test 23:30:11 (1 of 3 - Risk 3-dose series) [code = HEPATITIS B VACCINES (1 of 3 - Risk 3-dose series)] Future Scheduled 2022-08-07 COVID-19 VACCINE (3 - Me [facility] Test 23:30:11 Booster for Pfizer series) [code = COVID-19 VACCINE (3 - Booster for Pfizer series)] Future Scheduled 2022-08-07 65+ PNEUMOCOCCAL [facility] Test 23:30:11 VACCINE (4 - PPSV23 if available, else PCV20) [code = 65+ PNEUMOCOCCAL VACCINE (4 - PPSV23 if available, else PCV20)] Future Scheduled 2022-08-07 INFLUENZA VACCINE Method [facility] Test 23:30:11 [code = INFLUENZA VACCINE] Future Scheduled 2022-08-07 SHINGLES VACCINES (1 Met [facility] Test 23:30:11 of 2) [code = SHINGLES VACCINES (1 of 2)] Future Scheduled 2022-08-07 BREAST CANCER [facility] Test 23:30:11 SCREENING [code = BREAST CANCER SCREENING] Future Scheduled 2022-08-07 COLONOSCOPY SCREENING [facility] Test 23:30:11 [code = COLONOSCOPY SCREENING] Future Scheduled 2022-08-07 HEPATITIS B VACCINES Met [facility] Test 23:30:11 (1 of 3 - Risk 3-dose series) [code = HEPATITIS B VACCINES (1 of 3 - Risk 3-dose series)] Future Scheduled 2022-08-07 COVID-19 VACCINE (3 - [facility] Test 23:30:11 Booster for Pfizer series) [code = COVID-19 VACCINE (3 - Booster for Pfizer series)] Future Scheduled 2022-08-07 65+ [facility]:30:11 VACCINE (4 - PPSV23 if available, else PCV20) [code = 65+ PNEUMOCOCCAL VACCINE (4 - PPSV23 if available, else PCV20)] Future Scheduled 2022-08-07 INFLUENZA VACCINE Method [facility] Test 23:30:11 [code = INFLUENZA VACCINE] Future Scheduled 2022-08-06 SHINGLES VACCINES (1 Met [facility] Test 15:48:02 of 2) [code = SHINGLES VACCINES (1 of 2)] Future Scheduled 2022-08-06 BREAST CANCER [facility] Test 15:48:02 SCREENING [code = BREAST CANCER SCREENING] Future Scheduled 2022-08-06 COLONOSCOPY SCREENING [facility] Test 15:48:02 [code = COLONOSCOPY SCREENING] Future Scheduled 2022-08-06 HEPATITIS B VACCINES Met [facility] Test 15:48:02 (1 of 3 - Risk 3-dose series) [code = HEPATITIS B VACCINES (1 of 3 - Risk 3-dose series)] Future Scheduled 2022-08-06 COVID-19 VACCINE (3 - Me [facility] Test 15:48:02 Booster for Pfizer series) [code = COVID-19 VACCINE (3 - Booster for Pfizer series)] Future Scheduled 2022-08-06 65+ [facility]CCAL [facility] Test 15:48:02 VACCINE (4 - PPSV23 if available, else PCV20) [code = 65+ PNEUMOCOCCAL VACCINE (4 - PPSV23 if available, else PCV20)] Future Scheduled 2022-08-06 INFLUENZA VACCINE Method [facility] Test 15:48:02 [code = INFLUENZA VACCINE] Future Scheduled 2022-06-11 SHINGLES VACCINES (1 Met [facility] Test 16:10:12 of 2) [code = SHINGLES VACCINES (1 of 2)] Future Scheduled 2022-06-11 BREAST CANCER [facility] Test 16:10:12 SCREENING [code = BREAST CANCER SCREENING] Future Scheduled 2022-06-11 COLONOSCOPY SCREENING [facility] Test 16:10:12 [code = COLONOSCOPY SCREENING] Future Scheduled 2022-06-11 HEPATITIS B VACCINES Met [facility] Test 16:10:12 (1 of 3 - Risk 3-dose series) [code = HEPATITIS B VACCINES (1 of 3 - Risk 3-dose series)] Future Scheduled 2022-06-11 COVID-19 VACCINE (3 - Me [facility] Test 16:10:12 Booster for Pfizer series) [code = COVID-19 VACCINE (3 - Booster for Pfizer series)] Future Scheduled 2022-06-11 65+ [facility]OCOCCAL [facility] Test 16:10:12 VACCINE (4 - PPSV23 if available, else PCV20) [code = 65+ PNEUMOCOCCAL VACCINE (4 - PPSV23 if available, else PCV20)] Future Scheduled 2022-06-11 INFLUENZA VACCINE [facility] Test 16:10:12 [code = INFLUENZA VACCINE] Future Scheduled 2022-06-11 SHINGLES VACCINES (1 Met [facility] Test 16:10:12 of 2) [code = SHINGLES VACCINES (1 of 2)] Future Scheduled 2022-06-11 BREAST CANCER [facility] Test 16:10:12 SCREENING [code = BREAST CANCER SCREENING] Future Scheduled 2022-06-11 COLONOSCOPY SCREENING [facility] Test 16:10:12 [code = COLONOSCOPY SCREENING] Future Scheduled 2022-06-11 HEPATITIS B VACCINES Met [facility] Test 16:10:12 (1 of 3 - Risk 3-dose series) [code = HEPATITIS B VACCINES (1 of 3 - Risk 3-dose series)] Future Scheduled 2022-06-11 COVID-19 VACCINE (3 - Me [facility] Test 16:10:12 Booster for Pfizer series) [code = COVID-19 VACCINE (3 - Booster for Pfizer series)] Future Scheduled 2022-06-11 65+ [facility]:10[facility]12 VACCINE (4 - PPSV23 if available, else PCV20) [code = 65+ PNEUMOCOCCAL VACCINE (4 - PPSV23 if available, else PCV20)] Future Scheduled 2022-06-11 INFLUENZA VACCINE Method [facility] Test 16:10:12 [code = INFLUENZA VACCINE] Future Scheduled 2022-06-11 SHINGLES VACCINES (1 Met [facility] Test 16:10:12 of 2) [code = SHINGLES VACCINES (1 of 2)] Future Scheduled 2022-06-11 BREAST CANCER [facility] Test 16:10:12 SCREENING [code = BREAST CANCER SCREENING] Future Scheduled 2022-06-11 COLONOSCOPY SCREENING [facility] Test 16:10:12 [code = COLONOSCOPY SCREENING] Future Scheduled 2022-06-11 HEPATITIS B VACCINES Met [facility] Test 16:10:12 (1 of 3 - Risk 3-dose series) [code = HEPATITIS B VACCINES (1 of 3 - Risk 3-dose series)] Future Scheduled 2022-06-11 COVID-19 VACCINE (3 - Me [facility] Test 16:10:12 Booster for Pfizer series) [code = COVID-19 VACCINE (3 - Booster for Pfizer series)] Future Scheduled 2022-06-11 65+ [facility]AL [facility] Test 16:10:12 VACCINE (4 - PPSV23 if available, else PCV20) [code = 65+ PNEUMOCOCCAL VACCINE (4 - PPSV23 if available, else PCV20)] Future Scheduled 2022-06-11 INFLUENZA VACCINE Method [facility] Test 16:10:12 [code = INFLUENZA VACCINE] Future Scheduled 2022-06-11 SHINGLES VACCINES (1 Met [facility] Test 16:10:12 of 2) [code = SHINGLES VACCINES (1 of 2)] Future Scheduled 2022-06-11 BREAST CANCER [facility] Test 16:10:12 SCREENING [code = BREAST CANCER SCREENING] Future Scheduled 2022-06-11 COLONOSCOPY SCREENING [facility] Test 16:10:12 [code = COLONOSCOPY SCREENING] Future Scheduled 2022-06-11 HEPATITIS B VACCINES Met [facility] Test 16:10:12 (1 of 3 - Risk 3-dose series) [code = HEPATITIS B VACCINES (1 of 3 - Risk 3-dose series)] Future Scheduled 2022-06-11 COVID-19 VACCINE (3 - Me [facility] Test 16:10:12 Booster for Pfizer series) [code = COVID-19 VACCINE (3 - Booster for Pfizer series)] Future Scheduled 2022-06-11 65+ [facility]CCAL [facility] Test 16:10:12 VACCINE (4 - PPSV23 if available, else PCV20) [code = 65+ PNEUMOCOCCAL VACCINE (4 - PPSV23 if available, else PCV20)] Future Scheduled 2022-06-11 INFLUENZA VACCINE [facility] Test 16:10:12 [code = INFLUENZA VACCINE] Future Scheduled 2022-06-11 SHINGLES VACCINES (1 Met [facility] Test 16:10:12 of 2) [code = SHINGLES VACCINES (1 of 2)] Future Scheduled 2022-06-11 BREAST CANCER [facility] Test 16:10:12 SCREENING [code = BREAST CANCER SCREENING] Future Scheduled 2022-06-11 COLONOSCOPY SCREENING [facility] Test 16:10:12 [code = COLONOSCOPY SCREENING] Future Scheduled 2022-06-11 HEPATITIS B VACCINES Met [facility] Test 16:10:12 (1 of 3 - Risk 3-dose series) [code = HEPATITIS B VACCINES (1 of 3 - Risk 3-dose series)] Future Scheduled 2022-06-11 COVID-19 VACCINE (3 - Me [facility] Test 16:10:12 Booster for [...] Future Scheduled 2022-06-11 SHINGLES VACCINES (1 Met [facility] Test 16:10:12 of 2) [code = SHINGLES VACCINES (1 of 2)] Future Scheduled 2022-06-11 BREAST CANCER [facility] Test 16:10:12 SCREENING [code = BREAST CANCER SCREENING] Future Scheduled 2022-06-11 COLONOSCOPY SCREENING [facility] Test 16:10:12 [code = COLONOSCOPY SCREENING] Future Scheduled 2022-06-11 HEPATITIS B VACCINES Met [facility] Test 16:10:12 (1 of 3 - Risk 3-dose series) [code = HEPATITIS B VACCINES (1 of 3 - Risk 3-dose series)] Future Scheduled 2022-06-11 COVID-19 VACCINE (3 - [facility] Test 16:10:12 Booster for Pfizer series) [code = COVID-19 VACCINE (3 - Booster for Pfizer series)] Future Scheduled 2022-06-11 65+ [facility] 16:10:12 VACCINE (4 - PPSV23 if available, else PCV20) [code = 65+ PNEUMOCOCCAL VACCINE (4 - PPSV23 if available, else PCV20)] Future Scheduled 2022-06-11 INFLUENZA VACCINE [facility] Test 16:10:12 [code = INFLUENZA VACCINE] Future Scheduled 2022-06-11 SHINGLES VACCINES (1 Met [facility] Test 16:10:12 of 2) [code = SHINGLES VACCINES (1 of 2)] Future Scheduled 2022-06-11 BREAST CANCER [facility] Test 16:10:12 SCREENING [code = BREAST CANCER SCREENING] Future Scheduled 2022-06-11 COLONOSCOPY SCREENING [facility] Test 16:10:12 [code = COLONOSCOPY SCREENING] Future Scheduled 2022-06-11 HEPATITIS B VACCINES Met [facility] Test 16:10:12 (1 of 3 - Risk 3-dose series) [code = HEPATITIS B VACCINES (1 of 3 - Risk 3-dose series)] Future Scheduled 2022-06-11 COVID-19 VACCINE (3 - [facility] Test 16:10:12 Booster for Pfizer series) [code = COVID-19 VACCINE (3 - Booster for Pfizer series)] Future Scheduled 2022-06-11 65+ [facility]AL [facility] Test 16:10:12 VACCINE (4 - PPSV23 if available, else PCV20) [code = 65+ PNEUMOCOCCAL VACCINE (4 - PPSV23 if available, else PCV20)] Future Scheduled 2022-06-11 INFLUENZA VACCINE [facility] Test 16:10:12 [code = INFLUENZA VACCINE] Future Scheduled 2022-06-11 SHINGLES VACCINES (1 Met [facility] Test 16:10:12 of 2) [code = SHINGLES VACCINES (1 of 2)] Future Scheduled 2022-06-11 BREAST CANCER [facility] Test 16:10:12 SCREENING [code = BREAST CANCER SCREENING] Future Scheduled 2022-06-11 COLONOSCOPY SCREENING [facility] Test 16:10:12 [code = COLONOSCOPY SCREENING] Future Scheduled 2022-06-11 HEPATITIS B VACCINES Met [facility] Test 16:10:12 (1 of 3 - Risk 3-dose series) [code = HEPATITIS B VACCINES (1 of 3 - Risk 3-dose series)] Future Scheduled 2022-06-11 COVID-19 VACCINE (3 - [facility] Test 16:10:12 Booster for Pfizer series) [code = COVID-19 VACCINE (3 - Booster for Pfizer series)] Future Scheduled 2022-06-11 65+ [facility]OCCAL [facility] Test 16:10:12 VACCINE (4 - PPSV23 if available, else PCV20) [code = 65+ PNEUMOCOCCAL VACCINE (4 - PPSV23 if available, else PCV20)] Future Scheduled 2022-06-11 INFLUENZA VACCINE [facility] Test 16:10:12 [code = INFLUENZA VACCINE] Future Scheduled 2022-06-11 SHINGLES VACCINES (1 Met [facility] Test 16:10:12 of 2) [code = SHINGLES VACCINES (1 of 2)] Future Scheduled 2022-06-11 BREAST CANCER [facility] Test 16:10:12 SCREENING [code = BREAST CANCER SCREENING] Future Scheduled 2022-06-11 COLONOSCOPY SCREENING [facility] Test 16:10:12 [code = COLONOSCOPY SCREENING] Future Scheduled 2022-06-11 HEPATITIS B VACCINES Met [facility] Test 16:10:12 (1 of 3 - Risk 3-dose series) [code = HEPATITIS B VACCINES (1 of 3 - Risk 3-dose series)] Future Scheduled 2022-06-11 COVID-19 VACCINE (3 - [facility] Test 16:10:12 Booster for Pfizer series) [code = COVID-19 VACCINE (3 - Booster for Pfizer series)] Future Scheduled 2022-06-11 65+ [facility]OCCAL [facility] Test 16:10:12 VACCINE (4 - PPSV23 if available, else PCV20) [code = 65+ PNEUMOCOCCAL VACCINE (4 - PPSV23 if available, else PCV20)] Future Scheduled 2022-06-11 INFLUENZA VACCINE [facility] Test 16:10:12 [code = INFLUENZA VACCINE] Future Scheduled 2022-05-10 SHINGLES VACCINES (1 Met [facility] Test 10:21:35 of 2) [code = SHINGLES VACCINES (1 of 2)] Future Scheduled 2022-05-10 BREAST CANCER [facility] Test 10:21:35 SCREENING [code = BREAST CANCER SCREENING] Future Scheduled 2022-05-10 COLONOSCOPY SCREENING [facility] Test 10:21:35 [code = COLONOSCOPY SCREENING] Future Scheduled 2022-05-10 HEPATITIS B VACCINES Met [facility] Test 10:21:35 (1 of 3 - Risk 3-dose series) [code = HEPATITIS B VACCINES (1 of 3 - Risk 3-dose series)] Future Scheduled 2022-05-10 COVID-19 VACCINE (3 - Me [facility] Test 10:21:35 Booster for Pfizer series) [code = COVID-19 VACCINE (3 - Booster for Pfizer series)] Future Scheduled 2022-05-10 65+ [facility]OCCAL [facility] Test 10:21:35 VACCINE (4 - PPSV23 if available, else PCV20) [code = 65+ PNEUMOCOCCAL VACCINE (4 - PPSV23 if available, else PCV20)] Future Scheduled 2022-05-10 INFLUENZA VACCINE [facility] Test 10:21:35 [code = INFLUENZA VACCINE] Future Scheduled 2022-05-10 SHINGLES VACCINES (1 Met [facility] Test 10:21:35 of 2) [code = SHINGLES VACCINES (1 of 2)] Future Scheduled 2022-05-10 BREAST CANCER [facility] Test 10:21:35 SCREENING [code = BREAST CANCER SCREENING] Future Scheduled 2022-05-10 COLONOSCOPY SCREENING [facility] Test 10:21:35 [code = COLONOSCOPY SCREENING] Future Scheduled 2022-05-10 HEPATITIS B VACCINES Met [facility] Test 10:21:35 (1 of 3 - Risk 3-dose series) [code = HEPATITIS B VACCINES (1 of 3 - Risk 3-dose series)] Future Scheduled 2022-05-10 COVID-19 VACCINE (3 - Me [facility] Test 10:21:35 Booster for Pfizer series) [code = COVID-19 VACCINE (3 - Booster for Pfizer series)] Future Scheduled 2022-05-10 65+ PNEUMOCOCCAL [facility] Test 10:21:35 VACCINE (4 - PPSV23 if available, else PCV20) [code = 65+ PNEUMOCOCCAL VACCINE (4 - PPSV23 if available, else PCV20)] Future Scheduled 2022-05-10 INFLUENZA VACCINE [facility] Test 10:21:35 [code = INFLUENZA VACCINE] Future Scheduled 2022-05-06 SHINGLES VACCINES (1 Met [facility] Test 14:03:13 of 2) [code = SHINGLES VACCINES (1 of 2)] Future Scheduled 2022-05-06 BREAST CANCER [facility] Test 14:03:13 SCREENING [code = BREAST CANCER SCREENING] Future Scheduled 2022-05-06 COLONOSCOPY SCREENING [facility] Test 14:03:13 [code = COLONOSCOPY SCREENING] Future Scheduled 2022-05-06 HEPATITIS B VACCINES Met [facility] Test 14:03:13 (1 of 3 - Risk 3-dose series) [code = HEPATITIS B VACCINES (1 of 3 - Risk 3-dose series)] Future Scheduled 2022-05-06 COVID-19 VACCINE (3 - [facility] Test 14:03:13 Booster for Pfizer series) [code = COVID-19 VACCINE (3 - Booster for Pfizer series)] Future Scheduled 2022-05-06 65+ PNEUMOCOCCAL [facility] Test 14:03:13 VACCINE (4 - PPSV23 if available, else PCV20) [code = 65+ PNEUMOCOCCAL VACCINE (4 - PPSV23 if available, else PCV20)] Future Scheduled 2022-05-06 INFLUENZA VACCINE [facility] Test 14:03:13 [code = INFLUENZA VACCINE] Future Scheduled 2022-04-30 SHINGLES VACCINES (1 Met [facility] Test 01:07:32 of 2) [code = SHINGLES VACCINES (1 of 2)] Future Scheduled 2022-04-30 BREAST CANCER [facility] Test 01:07:32 SCREENING [code = BREAST CANCER SCREENING] Future Scheduled 2022-04-30 COLONOSCOPY SCREENING [facility] Test 01:07:32 [code = COLONOSCOPY SCREENING] Future Scheduled 2022-04-30 HEPATITIS B VACCINES Met [facility] Test 01:07:32 (1 of 3 - Risk 3-dose series) [code = HEPATITIS B VACCINES (1 of 3 - Risk 3-dose series)] Future Scheduled 2022-04-30 COVID-19 VACCINE (3 - Me [facility] Test 01:07:32 Booster for Pfizer series) [code = COVID-19 VACCINE (3 - Booster for Pfizer series)] Future Scheduled 2022-04-30 65+ [facility] 01:07:32 VACCINE (4 - PPSV23 if available, else PCV20) [code = 65+ PNEUMOCOCCAL VACCINE (4 - PPSV23 if available, else PCV20)] Future Scheduled 2022-04-30 INFLUENZA VACCINE Method [facility] Test 01:07:32 [code = INFLUENZA VACCINE] Future Scheduled 2022-04-30 SHINGLES VACCINES (1 Met [facility] Test 01:07:32 of 2) [code = SHINGLES VACCINES (1 of 2)] Future Scheduled 2022-04-30 BREAST CANCER [facility] Test 01:07:32 SCREENING [code = BREAST CANCER SCREENING] Future Scheduled 2022-04-30 COLONOSCOPY SCREENING [facility] Test 01:07:32 [code = COLONOSCOPY SCREENING] Future Scheduled 2022-04-30 HEPATITIS B VACCINES Met [facility] Test 01:07:32 (1 of 3 - Risk 3-dose series) [code = HEPATITIS B VACCINES (1 of 3 - Risk 3-dose series)] Future Scheduled 2022-04-30 COVID-19 VACCINE (3 - [facility] Test 01:07:32 Booster for Pfizer series) [code = COVID-19 VACCINE (3 - Booster for Pfizer series)] Future Scheduled 2022-04-30 65+ [facility] 01:07:32 VACCINE (4 - PPSV23 if available, else PCV20) [code = 65+ PNEUMOCOCCAL VACCINE (4 - PPSV23 if available, else PCV20)] Future Scheduled 2022-04-30 INFLUENZA VACCINE Method [facility] Test 01:07:32 [code = INFLUENZA VACCINE] Future Scheduled 2022-04-30 SHINGLES VACCINES (1 Met [facility] Test 01:07:32 of 2) [code = SHINGLES VACCINES (1 of 2)] Future Scheduled 2022-04-30 BREAST CANCER [facility] Test 01:07:32 SCREENING [code = BREAST CANCER SCREENING] Future Scheduled 2022-04-30 COLONOSCOPY SCREENING [facility] Test 01:07:32 [code = COLONOSCOPY SCREENING] Future Scheduled 2022-04-30 HEPATITIS B VACCINES Met [facility] Test 01:07:32 (1 of 3 - Risk 3-dose series) [code = HEPATITIS B VACCINES (1 of 3 - Risk 3-dose series)] Future Scheduled 2022-04-30 COVID-19 VACCINE (3 - [facility] Test 01:07:32 Booster for Pfizer series) [code = COVID-19 VACCINE (3 - Booster for Pfizer series)] Future Scheduled 2022-04-30 65+ PNEUMOCOCCAL [facility] Test 01:07:32 VACCINE (4 - PPSV23 if available, else PCV20) [code = 65+ PNEUMOCOCCAL VACCINE (4 - PPSV23 if available, else PCV20)] Future Scheduled 2022-04-30 INFLUENZA VACCINE [facility] Test 01:07:32 [code = INFLUENZA VACCINE] Future Scheduled 2022-04-25 SHINGLES VACCINES (1 Met [facility] Test 01:45:02 of 2) [code = SHINGLES VACCINES (1 of 2)] Future Scheduled 2022-04-25 BREAST CANCER [facility] Test 01:45:02 SCREENING [code = BREAST CANCER SCREENING] Future Scheduled 2022-04-25 COLONOSCOPY SCREENING [facility] Test 01:45:02 [code = COLONOSCOPY SCREENING] Future Scheduled 2022-04-25 HEPATITIS B VACCINES Met [facility] Test 01:45:02 (1 of 3 - Risk 3-dose series) [code = HEPATITIS B VACCINES (1 of 3 - Risk 3-dose series)] Future Scheduled 2022-04-25 COVID-19 VACCINE (3 - [facility] Test 01:45:02 Booster for Pfizer series) [code = COVID-19 VACCINE (3 - Booster for Pfizer series)] Future Scheduled 2022-04-25 65+ [facility]CCAL [facility] Test 01:45:02 VACCINE (4 - PPSV23 if available, else PCV20) [code = 65+ PNEUMOCOCCAL VACCINE (4 - PPSV23 if available, else PCV20)] Future Scheduled 2022-04-25 INFLUENZA VACCINE [facility] Test 01:45:02 [code = INFLUENZA VACCINE] Future Scheduled 2022-03-25 SHINGLES VACCINES (1 Met [facility] Test 14:48:42 of 2) [code = SHINGLES VACCINES (1 of 2)] Future Scheduled 2022-03-25 BREAST CANCER [facility] Test 14:48:42 SCREENING [code = BREAST CANCER SCREENING] Future Scheduled 2022-03-25 COLONOSCOPY SCREENING [facility] Test 14:48:42 [code = COLONOSCOPY SCREENING] Future Scheduled 2022-03-25 HEPATITIS B VACCINES Met [facility] Test 14:48:42 (1 of 3 - Risk 3-dose series) [code = HEPATITIS B VACCINES (1 of 3 - Risk 3-dose series)] Future Scheduled 2022-03-25 COVID-19 VACCINE (3 - Me [facility] Test 14:48:42 Booster for Pfizer series) [code = COVID-19 VACCINE (3 - Booster for Pfizer series)] Future Scheduled 2022-03-25 65+ [facility]OCCAL [facility] Test 14:48:42 VACCINE (4 - PPSV23 if available, else PCV20) [code = 65+ PNEUMOCOCCAL VACCINE (4 - PPSV23 if available, else PCV20)] Future Scheduled 2022-03-25 INFLUENZA VACCINE Method [facility] Test 14:48:42 [code = INFLUENZA VACCINE] Future Scheduled 2022-03-25 SHINGLES VACCINES (1 Met [facility] Test 14:48:42 of 2) [code = SHINGLES VACCINES (1 of 2)] Future Scheduled 2022-03-25 BREAST CANCER [facility] Test 14:48:42 SCREENING [code = BREAST CANCER SCREENING] Future Scheduled 2022-03-25 COLONOSCOPY SCREENING [facility] Test 14:48:42 [code = COLONOSCOPY SCREENING] Future Scheduled 2022-03-25 HEPATITIS B VACCINES Met [facility] Test 14:48:42 (1 of 3 - Risk 3-dose series) [code = HEPATITIS B VACCINES (1 of 3 - Risk 3-dose series)] Future Scheduled 2022-03-25 COVID-19 VACCINE (3 - Me [facility] Test 14:48:42 Booster for Pfizer series) [code = COVID-19 VACCINE (3 - Booster for Pfizer series)] Future Scheduled 2022-03-25 65+ [facility] 14:48:42 VACCINE (4 - PPSV23 if available, else PCV20) [code = 65+ PNEUMOCOCCAL VACCINE (4 - PPSV23 if available, else PCV20)] Future Scheduled 2022-03-25 INFLUENZA VACCINE Method [facility] Test 14:48:42 [code = INFLUENZA VACCINE] Future Scheduled 2022-03-25 SHINGLES VACCINES (1 Met [facility] Test 14:48:42 of 2) [code = SHINGLES VACCINES (1 of 2)] Future Scheduled 2022-03-25 BREAST CANCER [facility] Test 14:48:42 SCREENING [code = BREAST CANCER SCREENING] Future Scheduled 2022-03-25 COLONOSCOPY SCREENING [facility] Test 14:48:42 [code = COLONOSCOPY SCREENING] Future Scheduled 2022-03-25 HEPATITIS B VACCINES Met [facility] Test 14:48:42 (1 of 3 - Risk 3-dose series) [code = HEPATITIS B VACCINES (1 of 3 - Risk 3-dose series)] Future Scheduled 2022-03-25 COVID-19 VACCINE (3 - [facility] Test 14:48:42 Booster for Pfizer series) [code = COVID-19 VACCINE (3 - Booster for Pfizer series)] Future Scheduled 2022-03-25 65+ [facility] 14:48:42 VACCINE (4 - PPSV23 if available, else PCV20) [code = 65+ PNEUMOCOCCAL VACCINE (4 - PPSV23 if available, else PCV20)] Future Scheduled 2022-03-25 INFLUENZA VACCINE [facility] Test 14:48:42 [code = INFLUENZA VACCINE] Future Scheduled 2022-03-25 SHINGLES VACCINES (1 Met [facility] Test 14:48:42 of 2) [code = SHINGLES VACCINES (1 of 2)] Future Scheduled 2022-03-25 BREAST CANCER [facility] Test 14:48:42 SCREENING [code = BREAST CANCER SCREENING] Future Scheduled 2022-03-25 COLONOSCOPY SCREENING [facility] Test 14:48:42 [code = COLONOSCOPY SCREENING] Future Scheduled 2022-03-25 HEPATITIS B VACCINES Met [facility] Test 14:48:42 (1 of 3 - Risk 3-dose series) [code = HEPATITIS B VACCINES (1 of 3 - Risk 3-dose series)] Future Scheduled 2022-03-25 COVID-19 VACCINE (3 - Me [facility] Test 14:48:42 Booster for Pfizer series) [code = COVID-19 VACCINE (3 - Booster for Pfizer series)] Future Scheduled 2022-03-25 65+ [facility]AL [facility] Test 14:48:42 VACCINE (4 - PPSV23 if available, else PCV20) [code = 65+ PNEUMOCOCCAL VACCINE (4 - PPSV23 if available, else PCV20)] Future Scheduled 2022-03-25 INFLUENZA VACCINE [facility] Test 14:48:42 [code = INFLUENZA VACCINE] Future Scheduled 2022-03-25 SHINGLES VACCINES (1 Met [facility] Test 14:48:42 of 2) [code = SHINGLES VACCINES (1 of 2)] Future Scheduled 2022-03-25 BREAST CANCER [facility] Test 14:48:42 SCREENING [code = BREAST CANCER SCREENING] Future Scheduled 2022-03-25 COLONOSCOPY SCREENING Me [facility] Test 14:48:42 [code = COLONOSCOPY SCREENING] Future Scheduled 2022-03-25 HEPATITIS B VACCINES Met [facility] Test 14:48:42 (1 of 3 - Risk 3-dose series) [code = HEPATITIS B VACCINES (1 of 3 - Risk 3-dose series)] Future Scheduled 2022-03-25 COVID-19 VACCINE (3 - Me [facility] Test 14:48:42 Booster for Pfizer series) [code = COVID-19 VACCINE (3 - Booster for Pfizer series)] Future Scheduled 2022-03-25 65+ PNEUMOCOCCAL [facility] Test 14:48:42 VACCINE (4 - PPSV23 if available, else PCV20) [code = 65+ PNEUMOCOCCAL VACCINE (4 - PPSV23 if available, else PCV20)] Future Scheduled 2022-03-25 INFLUENZA VACCINE [facility] Test 14:48:42 [code = INFLUENZA VACCINE] Future Scheduled 2022-03-25 SHINGLES VACCINES (1 Met [facility] Test 14:48:42 of 2) [code = SHINGLES VACCINES (1 of 2)] Future Scheduled 2022-03-25 BREAST CANCER [facility] Test 14:48:42 SCREENING [code = BREAST CANCER SCREENING] Future Scheduled 2022-03-25 COLONOSCOPY SCREENING Me [facility] Test 14:48:42 [code = COLONOSCOPY SCREENING] Future Scheduled 2022-03-25 HEPATITIS B VACCINES Met [facility] Test 14:48:42 (1 of 3 - Risk 3-dose series) [code = HEPATITIS B VACCINES (1 of 3 - Risk 3-dose series)] Future Scheduled 2022-03-25 COVID-19 VACCINE (3 - Me [facility] Test 14:48:42 Booster for Pfizer series) [code = COVID-19 VACCINE (3 - Booster for Pfizer series)] Future Scheduled 2022-03-25 65+ PNEUMOCOCCAL [facility] Test 14:48:42 VACCINE (4 - PPSV23 if available, else PCV20) [code = 65+ PNEUMOCOCCAL VACCINE (4 - PPSV23 if available, else PCV20)] Future Scheduled 2022-03-25 INFLUENZA VACCINE [facility] Test 14:48:42 [code = INFLUENZA VACCINE] Future Scheduled 2022-03-25 SHINGLES VACCINES (1 Met [facility] Test 14:48:42 of 2) [code = SHINGLES VACCINES (1 of 2)] Future Scheduled 2022-03-25 BREAST CANCER [facility] Test 14:48:42 SCREENING [code = BREAST CANCER SCREENING] Future Scheduled 2022-03-25 COLONOSCOPY SCREENING [facility] Test 14:48:42 [code = COLONOSCOPY SCREENING] Future Scheduled 2022-03-25 HEPATITIS B VACCINES Met [facility] Test 14:48:42 (1 of 3 - Risk 3-dose series) [code = HEPATITIS B VACCINES (1 of 3 - Risk 3-dose series)] Future Scheduled 2022-03-25 COVID-19 VACCINE (3 - Me [facility] Test 14:48:42 Booster for Pfizer series) [code = COVID-19 VACCINE (3 - Booster for Pfizer series)] Future Scheduled 2022-03-25 65+ PNEUMOCOCCAL [facility] Test 14:48:42 VACCINE (4 - PPSV23 if available, else PCV20) [code = 65+ PNEUMOCOCCAL VACCINE (4 - PPSV23 if available, else PCV20)] Future Scheduled 2022-03-25 INFLUENZA VACCINE [facility] Test 14:48:42 [code = INFLUENZA VACCINE] Future Scheduled 2022-03-25 SHINGLES VACCINES (1 Met [facility] Test 14:48:42 of 2) [code = SHINGLES VACCINES (1 of 2)] Future Scheduled 2022-03-25 BREAST CANCER [facility] Test 14:48:42 SCREENING [code = BREAST CANCER SCREENING] Future Scheduled 2022-03-25 COLONOSCOPY SCREENING [facility] Test 14:48:42 [code = COLONOSCOPY SCREENING] Future Scheduled 2022-03-25 HEPATITIS B VACCINES Met [facility] Test 14:48:42 (1 of 3 - Risk 3-dose series) [code = HEPATITIS B VACCINES (1 of 3 - Risk 3-dose series)] Future Scheduled 2022-03-25 COVID-19 VACCINE (3 - Me [facility] Test 14:48:42 Booster for Pfizer series) [code = COVID-19 VACCINE (3 - Booster for Pfizer series)] Future Scheduled 2022-03-25 65+ PNEUMOCOCCAL [facility] Test 14:48:42 VACCINE (4 - PPSV23 if available, else PCV20) [code = 65+ PNEUMOCOCCAL VACCINE (4 - PPSV23 if available, else PCV20)] Future Scheduled 2022-03-25 INFLUENZA VACCINE [facility] Test 14:48:42 [code = INFLUENZA VACCINE] Future Scheduled 2022-03-25 SHINGLES VACCINES (1 Met [facility] Test 14:48:42 of 2) [code = SHINGLES VACCINES (1 of 2)] Future Scheduled 2022-03-25 BREAST CANCER [facility] Test 14:48:42 SCREENING [code = BREAST CANCER SCREENING] Future Scheduled 2022-03-25 COLONOSCOPY SCREENING [facility] Test 14:48:42 [code = COLONOSCOPY SCREENING] Future Scheduled 2022-03-25 HEPATITIS B VACCINES Met [facility] Test 14:48:42 (1 of 3 - Risk 3-dose series) [code = HEPATITIS B VACCINES (1 of 3 - Risk 3-dose series)] Future Scheduled 2022-03-25 COVID-19 VACCINE (3 - Me [facility] Test 14:48:42 Booster for [...] Future Scheduled 2022-03-04 SHINGLES VACCINES (1 Met [facility] Test 14:03:57 of 2) [code = SHINGLES VACCINES (1 of 2)] Future Scheduled 2022-03-04 BREAST CANCER [facility] Test 14:03:57 SCREENING [code = BREAST CANCER SCREENING] Future Scheduled 2022-03-04 COLONOSCOPY SCREENING [facility] Test 14:03:57 [code = COLONOSCOPY SCREENING] Future Scheduled 2022-03-04 HEPATITIS B VACCINES Met [facility] Test 14:03:57 (1 of 3 - Risk 3-dose series) [code = HEPATITIS B VACCINES (1 of 3 - Risk 3-dose series)] Future Scheduled 2022-03-04 COVID-19 VACCINE (3 - [facility] Test 14:03:57 Booster for Pfizer series) [code = COVID-19 VACCINE (3 - Booster for Pfizer series)] Future Scheduled 2022-03-04 65+ PNEUMOCOCCAL [facility] Test 14:03:57 VACCINE (4 - PPSV23 if available, else PCV20) [code = 65+ PNEUMOCOCCAL VACCINE (4 - PPSV23 if available, else PCV20)] Future Scheduled 2022-03-04 INFLUENZA VACCINE [facility] Test 14:03:57 [code = INFLUENZA VACCINE] Future Scheduled 2022-03-04 SHINGLES VACCINES (1 Met [facility] Test 14:03:57 of 2) [code = SHINGLES VACCINES (1 of 2)] Future Scheduled 2022-03-04 BREAST CANCER [facility] Test 14:03:57 SCREENING [code = BREAST CANCER SCREENING] Future Scheduled 2022-03-04 COLONOSCOPY SCREENING [facility] Test 14:03:57 [code = COLONOSCOPY SCREENING] Future Scheduled 2022-03-04 HEPATITIS B VACCINES Met [facility] Test 14:03:57 (1 of 3 - Risk 3-dose series) [code = HEPATITIS B VACCINES (1 of 3 - Risk 3-dose series)] Future Scheduled 2022-03-04 COVID-19 VACCINE (3 - [facility] Test 14:03:57 Booster for Pfizer series) [code = COVID-19 VACCINE (3 - Booster for Pfizer series)] Future Scheduled 2022-03-04 65+ PNEUMOCOCCAL [facility] Test 14:03:57 VACCINE (4 - PPSV23 if available, else PCV20) [code = 65+ PNEUMOCOCCAL VACCINE (4 - PPSV23 if available, else PCV20)] Future Scheduled 2022-03-04 INFLUENZA VACCINE [facility] Test 14:03:57 [code = INFLUENZA VACCINE] Future Scheduled 2022-03-04 SHINGLES VACCINES (1 Met [facility] Test 14:03:57 of 2) [code = SHINGLES VACCINES (1 of 2)] Future Scheduled 2022-03-04 BREAST CANCER [facility] Test 14:03:57 SCREENING [code = BREAST CANCER SCREENING] Future Scheduled 2022-03-04 COLONOSCOPY SCREENING [facility] Test 14:03:57 [code = COLONOSCOPY SCREENING] Future Scheduled 2022-03-04 HEPATITIS B VACCINES Met [facility] Test 14:03:57 (1 of 3 - Risk 3-dose series) [code = HEPATITIS B VACCINES (1 of 3 - Risk 3-dose series)] Future Scheduled 2022-03-04 COVID-19 VACCINE (3 - [facility] Test 14:03:57 Booster for Pfizer series) [code = COVID-19 VACCINE (3 - Booster for Pfizer series)] Future Scheduled 2022-03-04 65+ PNEUMOCOCCAL [facility] Test 14:03:57 VACCINE (4 - PPSV23 if available, else PCV20) [code = 65+ PNEUMOCOCCAL VACCINE (4 - PPSV23 if available, else PCV20)] Future Scheduled 2022-03-04 INFLUENZA VACCINE Method [facility] Test 14:03:57 [code = INFLUENZA VACCINE] Future Scheduled 2022-03-04 SHINGLES VACCINES (1 Met [facility] Test 14:03:57 of 2) [code = SHINGLES VACCINES (1 of 2)] Future Scheduled 2022-03-04 BREAST CANCER [facility] Test 14:03:57 SCREENING [code = BREAST CANCER SCREENING] Future Scheduled 2022-03-04 COLONOSCOPY SCREENING [facility] Test 14:03:57 [code = COLONOSCOPY SCREENING] Future Scheduled 2022-03-04 HEPATITIS B VACCINES Met [facility] Test 14:03:57 (1 of 3 - Risk 3-dose series) [code = HEPATITIS B VACCINES (1 of 3 - Risk 3-dose series)] Future Scheduled 2022-03-04 COVID-19 VACCINE (3 - [facility] Test 14:03:57 Booster for Pfizer series) [code = COVID-19 VACCINE (3 - Booster for Pfizer series)] Future Scheduled 2022-03-04 65+ PNEUMOCOCCAL [facility] Test 14:03:57 VACCINE (4 - PPSV23 if available, else PCV20) [code = 65+ PNEUMOCOCCAL VACCINE (4 - PPSV23 if available, else PCV20)] Future Scheduled 2022-03-04 INFLUENZA VACCINE [facility] Test 14:03:57 [code = INFLUENZA VACCINE] Future Scheduled 2022-02-11 SHINGLES VACCINES (1 Met [facility] Test 13:39:12 of 2) [code = SHINGLES VACCINES (1 of 2)] Future Scheduled 2022-02-11 BREAST CANCER [facility] Test 13:39:12 SCREENING [code = BREAST CANCER SCREENING] Future Scheduled 2022-02-11 COLONOSCOPY SCREENING [facility] Test 13:39:12 [code = COLONOSCOPY SCREENING] Future Scheduled 2022-02-11 HEPATITIS B VACCINES Met [facility] Test 13:39:12 (1 of 3 - Risk 3-dose series) [code = HEPATITIS B VACCINES (1 of 3 - Risk 3-dose series)] Future Scheduled 2022-02-11 COVID-19 VACCINE (3 - [facility] Test 13:39:12 Booster for Pfizer series) [code = COVID-19 VACCINE (3 - Booster for Pfizer series)] Future Scheduled 2022-02-11 65+ PNEUMOCOCCAL [facility] Test 13:39:12 VACCINE (4 - PPSV23 or PCV20) [code = 65+ PNEUMOCOCCAL VACCINE (4 - PPSV23 or PCV20)] Future Scheduled 2022-02-11 INFLUENZA VACCINE [facility] Test 13:39:12 [code = INFLUENZA VACCINE] Future Scheduled 2022-01-29 SHINGLES VACCINES (1 Met [facility] Test 14:07:20 of 2) [code = SHINGLES VACCINES (1 of 2)] Future Scheduled 2022-01-29 BREAST CANCER [facility] Test 14:07:20 SCREENING [code = BREAST CANCER SCREENING] Future Scheduled 2022-01-29 COLONOSCOPY SCREENING [facility] Test 14:07:20 [code = COLONOSCOPY SCREENING] Future Scheduled 2022-01-29 HEPATITIS B VACCINES Met [facility] Test 14:07:20 (1 of 3 - Risk 3-dose series) [code = HEPATITIS B VACCINES (1 of 3 - Risk 3-dose series)] Future Scheduled 2022-01-29 COVID-19 VACCINE (3 - Me [facility] Test 14:07:20 Booster for Pfizer series) [code = COVID-19 VACCINE (3 - Booster for Pfizer series)] Future Scheduled 2022-01-29 65+ PNEUMOCOCCAL [facility] Test 14:07:20 VACCINE (4 - PPSV23 or PCV20) [code = 65+ PNEUMOCOCCAL VACCINE (4 - PPSV23 or PCV20)] Future Scheduled 2022-01-29 INFLUENZA VACCINE Method [facility] Test 14:07:20 [code = INFLUENZA VACCINE] Future Scheduled 2022-01-29 SHINGLES VACCINES (1 Met [facility] Test 14:07:20 of 2) [code = SHINGLES VACCINES (1 of 2)] Future Scheduled 2022-01-29 BREAST CANCER [facility] Test 14:07:20 SCREENING [code = BREAST CANCER SCREENING] Future Scheduled 2022-01-29 COLONOSCOPY SCREENING [facility] Test 14:07:20 [code = COLONOSCOPY SCREENING] Future Scheduled 2022-01-29 HEPATITIS B VACCINES Met [facility] Test 14:07:20 (1 of 3 - Risk 3-dose series) [code = HEPATITIS B VACCINES (1 of 3 - Risk 3-dose series)] Future Scheduled 2022-01-29 COVID-19 VACCINE (3 - [facility] Test 14:07:20 Booster for Pfizer series) [code = COVID-19 VACCINE (3 - Booster for Pfizer series)] Future Scheduled 2022-01-29 65+ PNEUMOCOCCAL [facility] Test 14:07:20 VACCINE (4 - PPSV23 or PCV20) [code = 65+ PNEUMOCOCCAL VACCINE (4 - PPSV23 or PCV20)] Future Scheduled 2022-01-29 INFLUENZA VACCINE Method [facility] Test 14:07:20 [code = INFLUENZA VACCINE] Future Scheduled 2022-01-29 SHINGLES VACCINES (1 Met [facility] Test 14:07:20 of 2) [code = SHINGLES VACCINES (1 of 2)] Future Scheduled 2022-01-29 BREAST CANCER [facility] Test 14:07:20 SCREENING [code = BREAST CANCER SCREENING] Future Scheduled 2022-01-29 COLONOSCOPY SCREENING [facility] Test 14:07:20 [code = COLONOSCOPY SCREENING] Future Scheduled 2022-01-29 HEPATITIS B VACCINES Met [facility] Test 14:07:20 (1 of 3 - Risk 3-dose series) [code = HEPATITIS B VACCINES (1 of 3 - Risk 3-dose series)] Future Scheduled 2022-01-29 COVID-19 VACCINE (3 - Me [facility] Test 14:07:20 Booster for Pfizer series) [code = COVID-19 VACCINE (3 - Booster for Pfizer series)] Future Scheduled 2022-01-29 65+ PNEUMOCOCCAL [facility] Test 14:07:20 VACCINE (4 - PPSV23 or PCV20) [code = 65+ PNEUMOCOCCAL VACCINE (4 - PPSV23 or PCV20)] Future Scheduled 2022-01-29 INFLUENZA VACCINE Method [facility] Test 14:07:20 [code = INFLUENZA VACCINE] Future Scheduled 2022-01-29 SHINGLES VACCINES (1 Met [facility] Test 14:07:20 of 2) [code = SHINGLES VACCINES (1 of 2)] Future Scheduled 2022-01-29 BREAST CANCER [facility] Test 14:07:20 SCREENING [code = BREAST CANCER SCREENING] Future Scheduled 2022-01-29 COLONOSCOPY SCREENING [facility] Test 14:07:20 [code = COLONOSCOPY SCREENING] Future Scheduled 2022-01-29 HEPATITIS B VACCINES Met [facility] Test 14:07:20 (1 of 3 - Risk 3-dose series) [code = HEPATITIS B VACCINES (1 of 3 - Risk 3-dose series)] Future Scheduled 2022-01-29 COVID-19 VACCINE (3 - [facility] Test 14:07:20 Booster for Pfizer series) [code = COVID-19 VACCINE (3 - Booster for Pfizer series)] Future Scheduled 2022-01-29 65+ PNEUMOCOCCAL [facility] Test 14:07:20 VACCINE (4 - PPSV23 or PCV20) [code = 65+ PNEUMOCOCCAL VACCINE (4 - PPSV23 or PCV20)] Future Scheduled 2022-01-29 INFLUENZA VACCINE Method [facility] Test 14:07:20 [code = INFLUENZA VACCINE] Future Scheduled 2022-01-20 SHINGLES VACCINES (1 Met [facility] Test 06:12:34 of 2) [code = SHINGLES VACCINES (1 of 2)] Future Scheduled 2022-01-20 Screening for [facility] Test 06:12:34 malignant neoplasm of cervix (procedure) [code = [id number]] Future Scheduled 2022-01-20 BREAST CANCER [facility] Test 06:12:34 SCREENING [code = BREAST CANCER SCREENING] Future Scheduled 2022-01-20 COLONOSCOPY SCREENING [facility] Test 06:12:34 [code = COLONOSCOPY SCREENING] Future Scheduled 2022-01-20 HEPATITIS B VACCINES Met [facility] Test 06:12:34 (1 of 3 - Risk 3-dose series) [code = HEPATITIS B VACCINES (1 of 3 - Risk 3-dose series)] Future Scheduled 2022-01-20 COVID-19 VACCINE (3 - [facility] Test 06:12:34 Booster for Pfizer series) [code = COVID-19 VACCINE (3 - Booster for Pfizer series)] Future Scheduled 2022-01-20 65+ PNEUMOCOCCAL [facility] Test 06:12:34 VACCINE (4 - PPSV23 or PCV20) [code = 65+ PNEUMOCOCCAL VACCINE (4 - PPSV23 or PCV20)] Future Scheduled 2022-01-20 INFLUENZA VACCINE Method [facility] Test 06:12:34 [code = INFLUENZA VACCINE] Future Scheduled 2022-01-16 SHINGLES VACCINES (1 Met [facility] Test 12:09:25 of 2) [code = SHINGLES VACCINES (1 of 2)] Future Scheduled 2022-01-16 Screening for [facility] Test 12:09:25 malignant neoplasm of cervix (procedure) [code = [id number]] Future Scheduled 2022-01-16 BREAST CANCER [facility] Test 12:09:25 SCREENING [code = BREAST CANCER SCREENING] Future Scheduled 2022-01-16 COLONOSCOPY SCREENING [facility] Test 12:09:25 [code = COLONOSCOPY SCREENING] Future Scheduled 2022-01-16 HEPATITIS B VACCINES Met [facility] Test 12:09:25 (1 of 3 - Risk 3-dose series) [code = HEPATITIS B VACCINES (1 of 3 - Risk 3-dose series)] Future Scheduled 2022-01-16 COVID-19 VACCINE (3 - [facility] Test 12:09:25 Booster for Pfizer series) [code = COVID-19 VACCINE (3 - Booster for Pfizer series)] Future Scheduled 2022-01-16 65+ PNEUMOCOCCAL [facility] Test 12:09:25 VACCINE (4 - PPSV23 or PCV20) [code = 65+ PNEUMOCOCCAL VACCINE (4 - PPSV23 or PCV20)] Future Scheduled 2022-01-16 INFLUENZA VACCINE Method [facility] Test 12:09:25 [code = INFLUENZA VACCINE] Future Scheduled 2022-01-14 SHINGLES VACCINES (1 Met [facility] Test 04:11:46 of 2) [code = SHINGLES VACCINES (1 of 2)] Future Scheduled 2022-01-14 Screening for [facility] Test 04:11:46 malignant neoplasm of cervix (procedure) [code = [id number]] Future Scheduled 2022-01-14 BREAST CANCER [facility] Test 04:11:46 SCREENING [code = BREAST CANCER SCREENING] Future Scheduled 2022-01-14 COLONOSCOPY SCREENING [facility] Test 04:11:46 [code = COLONOSCOPY SCREENING] Future Scheduled 2022-01-14 HEPATITIS B VACCINES [facility] Test 04:11:46 (1 of 3 - Risk 3-dose series) [code = HEPATITIS B VACCINES (1 of 3 - Risk 3-dose series)] Future Scheduled 2022-01-14 COVID-19 VACCINE (3 - [facility] Test 04:11:46 Booster for Pfizer series) [code = COVID-19 VACCINE (3 - Booster for Pfizer series)] Future Scheduled 2022-01-14 65+ PNEUMOCOCCAL [facility] Test 04:11:46 VACCINE (4 - PPSV23 or PCV20) [code = 65+ PNEUMOCOCCAL VACCINE (4 - PPSV23 or PCV20)] Future Scheduled 2022-01-14 INFLUENZA VACCINE Method [facility] Test 04:11:46 [code = INFLUENZA VACCINE] Future Scheduled 2021-08-26 Screening for [facility] Test 13:02:23 malignant neoplasm of cervix (procedure) [code = [id number]] Future Scheduled 2021-08-26 BREAST CANCER [facility] Test 13:02:23 SCREENING [code = BREAST CANCER SCREENING] Future Scheduled 2021-08-26 COLONOSCOPY SCREENING [facility] Test 13:02:23 [code = COLONOSCOPY SCREENING] Future Scheduled 2021-08-26 Screening for [facility] Test 13:02:23 malignant neoplasm of lung (procedure) [code = [id number]] Future Scheduled 2021-08-26 SHINGLES VACCINES (#1) M [...] Facility Department ID 2022-02-18 Outpatient [facility] W [id number] [place] 14:30:[address] [place] [address] 2021-07-14 Outpatient SADIKOVIC, [facility] [id number] [place] 09:33:51 [facility] 2021-06-02 Outpatient HEMATPOUR, [facility] [id number] [place] 13:58:59 [facility] 2021-04-28 Outpatient [facility], [facility] [id number] [place] 11:21:22 [facility] 2021-03-20 Emergency [facility] [id number] Univers 16:07:40 [facility] 2020-12-12 Outpatient [facility]EM[facility], [facility] [id number] [place] 08:16:46 [facility] 2020-10-31 Outpatient [facility], [facility] [id number] [place] 09:44:50 [facility] 2020-09-30 Outpatient [facility], [facility] [id number] [place] 13:16:03 [facility] 2022-11-26 2022-11-26 Outpatient R [facility] [id number] Univers 08:30:00 08:30:00 [facility] 2022-11-15 2022-11-15 Outpatient R [facility] [id number] Univers 08:30:00 08:30:00 [facility] 2022-11-02 2022-11-02 Outpatient R [facility] [id number] Univers 08:30:00 08:30:[address] [facility] 2022-10-27 2022-10-27 Telephone [facility] [id number] Univers 00:00:00 00:00:00 [place] HEALTH [id number] i [place] [id number] [address] 2022-10-06 2022-10-06 Outpatient [facility] [id number] Univers 09:30:00 09:30:[address] [facility] 2022-09-26 2022-09-26 [facility] [id number] Univers 00:00:00 00:00:00 [facility] [address] HEALTH [id number] i [place] [id number] [address] 2022-09-03 2022-09-03 Outpatient [facility] [id number] Univers 11:00:00 11:00:[address] [facility] 2022-08-24 2022-08-24 [facility] 1.2.840.5 [id number] Univers 00:00:00 00:00:00 [place] [id number] ity of 3.104.2.7 [place] .3.029513 Medica l .[facility] [place] 2022-05-20 2022-05-20 [facility] [id number] Univers 00:00:00 00:00:00 [facility] [id number] i [place] [id number] [address] 2022-05-10 2022-05-10 Emergency X GALENA, [facility] ERT [id number] Univers 10:30:00 16:31:00 HOME [facility] 2022-05-10 2022-05-10 Emergency Gerardo, TRAUMA [id number] Univers 10:30:00 16:31:00 [facility] [id number] [place] [id number] [facility] 014 [place] 2022-05-10 2022-05-10 [facility] 1.2.840.114 [id number] Univers 00:00:00 00:00:00 [facility] [id number] i [place] [id number] [address] 2022-05-08 2022-05-08 Emergency X [facility] ERT [id number] Univers 16:18:00 18:42:[address] [facility] 2022-05-08 2022-05-08 [facility] 1.2.840.114 [id number] Univers 16:18:00 18:42:00 Theresa BULLOCK [id number] ity [facility] 4.2.7.2.686 [facility] [id number] [address] 2022-05-07 2022-05-07 Telephone [facility] 1.2.840.114 [id number] Univers 00:00:00 00:00:00 [facility] [id number] i [place] [id number] [address] 2022-05-06 2022-05-06 Emergency X [facility] ERT [id number] Univers 14:13:00 18:19:[address] [facility] 2022-05-06 2022-05-06 Emergency [facility] [id number] Univers 14:13:00 18:19:00 Anette BULLOCK [id number] ity of [place] 4.2.7.2.686 [facility] [id number] [address] 2022-05-06 2022-05-06 Telephone [facility] 1.2.840.114 [id number] Univers 00:00:00 00:00:00 [facility] [id number] i [place] [id number] [address] 2022-04-22 2022-04-22 Emergency X [facility] ERT [id number] Univers 13:55:00 17:00:00 PAULETTE ity of [facility] 2022-04-22 2022-04-22 Emergency [facility] [id number] Univers 13:55:00 17:00:00 Paulette S [place] [id number] i ty of [place] [id number] [address] 2022-04-07 2022-04-07 Outpatient R [facility] [id number] Univers 20:40:00 20:40:[address] [facility] 2022-04-07 2022-04-07 Telephone Devin, 1.2.840.3 [id number] Univers 00:00:00 00:00:00 Robbi R 37634.1.1 i ty of 3.104.2.7 [place] .3.760891 Medica l .8 [place] 2022-03-05 2022-03-05 Assembler Erector [place] Cardenas 1.2.840.1 [id number] Univers 13:45:00 14:00:00 Visit [facility] 17267.1.1 ity of 3.104.2.7 [place] .3.779175 Medica l .8 [place] 2022-03-05 2022-03-05 Office Ronald JOSÉ ANTONIO [id number] [id number] Univers 13:00:00 13:30:00 Visit [facility] 350.1.13.10 i ty of [id number] [address] 2022-03-05 2022-03-05 Outpatient R [facility] [id number] Univers 13:00:00 13:00:[address] [facility] 2022-02-26 2022-02-26 Outpatient R [facility] [id number] Univers 08:30:00 08:30:00 SANTIAGO ity of [facility] 2022-02-26 2022-02-26 Outpatient R RONALD, [facility] [id number] Univers 08:30:00 08:30:[address] [facility] 2022-02-17 2022-02-17 Transition Stevo, 1.2.840.2 [id number] Univers 00:00:00 00:00:00 of Care Isaias Arredondo 89163.1.1 it y of 3.104.2.7 [place] .3.484125 Medica l .8 [place] 2022-02-10 2022-02-16 Inpatient X [facility] [id number] Univers 22:59:00 19:27:00 TOMY ity of [facility] 2022-02-10 2022-02-16 Hospital Reilly Means 1.2.840.1 [id number] Univers 22:59:00 19:27:00 Encounter Ofe Shields 06965.1.1 ity of [place].2.7 [place] .3.432827 Medica [place] .8 [place] 2022-02-11 2022-02-11 Telephone East, 1.2.840.5 [id number] [id number] Univers 00:00:00 00:00:00 Santiago 82758.1.1 ity of 3.104.2.7 [place] .3.766552 Medica l .8 [place] 2022-02-10 2022-02-10 Travel 1.2.840.1 1.2.450.608 4028 9827 Univers 00:00:00 00:00:00 28085.1.1 350.1.13.10 ity of 3.104.2.7 4.[place]7.3.698 [place] .3.959949 084.8 Medica l .8 [place] 2022-01-30 2022-01-30 Telephone East, 1.2.840.6 [id number] 965 [id number] Univers 00:00:00 00:00:00 Santiago 97172.1.1 ity of 3.104.2.7 [place] .3.828457 Medica l .8 Branch 2022-01-06 2022-01-06 Orders Doctor FERMIN 1.2.840.114 [id number] Univers 00:00:00 00:00:00 Only Unassigned, JACKELINE 350.1.13.10 ity of [place] [facility] 4.2.7.2.686 Yomi as [phone] [facility] 009 Branch 2021-12-25 2021-12-25 Orders Doctor FERMIN 1.2.840.114 [id number] Univers 00:00:00 00:00:00 Only Unassigned, JACKELINE 350.1.13.10 ity of [place] [facility] 4.2.7.2.686 Yomi as [id number] [facility] 009 Branch 2021-12-12 2021-12-13 Emergency X Bill COLES [facility] ERT [id number] Univers 23:53:00 01:52:00 ity of [facility] 2021-12-12 2021-12-13 Emergency Bill Coles [facility] 1.2.840.114 95 [id number] Univers 23:53:00 01:52:00 Kiersten KOBE 350.1.13.10 i ty of [place] [facility] [id number] [facility] 084 Branch 2021-11-20 2021-11-20 Assembler Erector [facility] UNIVERSIT 1.2.840.114 9 [id number] Univers 09:45:00 10:00:00 Visit [facility] 350.1.13.10 ity [place] [id number] [facility] 316 Branch 2021-11-20 2021-11-20 Office [facility] 1.2.582.442 9592 9084 Univers 08:30:00 09:00:00 Visit [facility] 350.1.13.10 i ty [place] [id number] [facility] 089 Branch 2021-11-20 2021-11-20 Outpatient R [facility] [id number] Univers 08:30:00 08:30:[address] [facility] 2021-11-20 2021-11-20 Outpatient R RONALD [facility] [id number] Univers 08:30:00 08:30:[address] [facility] 2021-11-20 2021-11-20 Outpatient R [facility] [id number] Univers 08:30:00 08:30:[address] [facility] 2021-11-20 2021-11-20 Outpatient R [facility] [id number] Univers 08:30:00 08:30:[address] [facility] 2021-10-24 2021-10-24 Emergency [facility] [id number] Univers 16:27:00 22:26:[facility] 2021-10-[facility] 2021-10-24 [facility] [id number] Univers 16:27:00 22:26:00 CHARITY [facility] 2021-10-24 2021-10-24 Emergency Reilly Means [facility] 1.2.840. 114 [id number] Univers 16:27:00 22:26:00 Charity McallisterBANNER 350.1.13.10 ity [facility] 4.2.7.2.686 [facility] [id number] [address] 2021-10-23 2021-10-24 Emergency X WALKER, [facility] ERT [id number] Univers 20:22:00 02:57:00 CHARITY [facility] 2021-10-23 2021-10-24 Emergency [facility] 1.2.532.481 [id number] Univers 20:22:00 02:57:00 Charity CHAMBERSBANNER 350.1.13.10 ity [facility] 4.2.7.2.686 [facility] [id number] [address] 2021-09-07 2021-09-07 Outpatient R SELF, [facility] [id number] Univers 08:00:00 08:00:00 GADIEL barbosa o f [facility] 2021-09-07 2021-09-07 Outpatient R SELF, [facility] [id number] Univers 08:00:00 08:00:00 GADIEL ity o f [facility] 2021-08-21 2021-08-21 Outpatient R [facility] [id number] Univers 10:45:00 10:45:[address] [facility] 2021-08-21 2021-08-21 Assembler Erector [place] Cardenas 1.2.840.1 [id number] Univers 10:45:00 10:45:00 Visit [facility] 34285.1.1 ity of 3.104.2.7 [place] .3.385214 Medica l .8 [place] 2021-08-21 2021-08-21 Office [facility], 1.2.840.4 [id number] 516 Univers 08:30:00 09:00:00 Visit Santiago 83992.1.1 ity of 3.104.2.7 [place] .3.335197 Medica l .8 [place] 2021-08-21 2021-08-21 Office [facility] 1.2.911.876 3818 8516 Univers 08:30:00 09:00:00 Visit Santiago [facility] 350.1.13.10 i ty of [place] [id number] [facility] 089 [place] 2021-08-21 2021-08-21 Outpatient R [facility] [id number] Univers 08:30:00 08:30:[address] [facility] 2021-08-21 2021-08-21 Travel 1.2.840.1 1.2.841.704 0893 3865 Univers 00:00:00 00:00:00 39131.1.1 350.1.13.10 ity of 3.104.2.7 4.[place].7.3.698 [place] .3.609668 084.8 Medica l .8 [place] 2021-08-14 2021-08-14 Telephone East, 1.2.840.6 [id number] Univers 00:00:00 00:00:00 Santiago 20570.1.1 ity of 3.104.2.7 [place] .3.848852 Medica l .8 Branch 2021-08-13 2021-08-13 Telephone Ronald, 1.2.840.2 [id number] Univers 00:00:00 00:00:00 Santiago 62784.1.1 ity of 3.104.2.7 [place] .3.465896 Medica l .8 [place] 2021-08-11 2021-08-11 Outpatient [facility] [id number] Univers 08:00:00 08:00:00 [facility] 2021-08-05 2021-08-05 Inpatient RAUL Lund, HCACL OUTD [id number] [facility] 05:24:00 05:24:00 Mike 31 [facility] 2021-07-20 2021-07-20 Outpatient [facility] [id number] Univers 10:00:00 10:00:00 [facility] 2021-07-14 2021-07-14 Office Pankaj, UTP 6400 1.2.840.114 13 [id number] [place] 08:45:00 09:34:[address] 350.1.13.58 Health 9.2.7.2.686 [id number] 1 2021-07-09 2021-07-09 Telephone [place], UTP 6400 1.2.840.114 [id number] [place] 00:00:00 00:00:[address] 350.1.13.58 Health 9.2.7.2.686 [id number] 1 2021-07-09 2021-07-09 Telephone [place], UTP 6400 1.2.840.114 [id number] [place] 00:00:00 00:00:[address] 350.1.13.58 Health 9.2.7.2.686 [id number] 1 2021-07-03 2021-07-03 Outpatient [facility] [id number] Univers 08:00:00 08:00:00 [facility] 2021-06-17 2021-06-17 Inpatient RAUL Lund, EDUARDOCL INTE.02 [id number] [facility] 10:56:00 14:36:00 Mike Christiana [facility] 2021-06-15 2021-06-15 Outpatient R SELF, [facility] [id number] Univers 10:15:00 11:07:21 GADIEL rodas [facility] 2021-06-15 2021-06-15 Outpatient R SELF, [facility] [id number] Univers 10:15:00 10:15:00 GADIEL ity o f [facility] 2021-06-15 2021-06-15 Outpatient R SELF, [facility] [id number] Univers 10:15:00 10:15:00 GADIEL vogel [facility] [place] [facility] 2021-06-15 2021-06-15 Orders Doctor 1.2.840.4 [id number] Univers 00:00:00 00:00:00 Only Unassigned, 34698.1.1 ity of [place] 3.104.2.7 [place] .3.084875 Medica l .8 Branch 2021-06-15 2021-06-15 Travel 1.2.840.1 1.2.560.482 4355 7719 Univers 00:00:00 00:00:00 71773.1.1 350.1.13.10 ity of 3.104.2.7 4.2.7.3.698 [place] .3.969051 084.8 Medica l .8 Branch 2021-06-11 2021-06-11 Refill East, UNIVERSIT 1.2.166.787 4338 9185 Univers 00:00:00 00:00:00 [facility] 350.1.13.10 i ty of [place] [id number] [facility] 089 Branch 2021-06-11 2021-06-11 Refill East, 1.2.840.3 [id number] 185 Univers 00:00:00 00:00:00 Santiago 82360.1.1 ity of 3.104.2.7 [place] .3.350025 Medica l .8 Branch 2021-06-05 2021-06-05 Outpatient R EAST, [facility] [id number] Univers 09:00:00 09:00:00 SANTIAGO itcharlei of [facility] 2021-06-02 2021-06-02 Telephone East, UNIVERSIT 1.2.840.114 [id number] Univers 00:00:00 00:00:00 Santiago Y HEALTH 350.1.13.10 i ty of [place] 4[place] [id number] [facility] 089 [place] 2021-06-02 2021-06-02 Telephone East, 1.2.840.9 [id number] 903 15196 Univers 00:00:00 00:00:00 Santiago 60076.1.1 ity of 3.104.2.7 [place] .3.204917 Medica l .8 [place] 2021-05-29 2021-05-29 Telephone East, 1.2.840.5 [id number] 902 34114 Univers 00:00:00 00:00:00 [place] 27118.1.1 ity of 3.104.2.7 [place] .3.633769 Medica l .8 [place] 2021-05-29 2021-05-29 Telephone East, 1.2.840.9 [id number] 902 [id number] Univers 00:00:00 00:00:00 [place] 26706.1.1 ity of 3.104.2.7 [place] .3.118056 Medica l .8 [place] 2021-05-25 2021-05-25 Outpatient R SELF, [facility] [id number] Univers 08:00:00 08:00:00 GADIEL barbosa o f [facility] 2021-04-29 2021-04-29 Outpatient R LALA, [facility] [id number] Univers 08:00:00 08:00:00 NIKOLAI barbosa of [facility] 2021-04-28 2021-04-28 Telephone [place], UTP 6400 1.2.840.114 [id number] [place] 00:00:00 00:00:00 Beverly RUIZ 350.1.13.58 Health 9.2.7.2.686 [id number] 1 2021-04-28 2021-04-28 Telephone Jailyn, 1.2.840.4 [id number] 21 [id number] Methodi 00:00:00 00:00:[address] 3.430.2.7 Hospit a .3.509237 l .8 2021-03-31 2021-03-31 Orders Carol Ann, 1.2.840.1 [id number] 21 [id number] Methodi 00:00:00 00:00:00 Only Sarai Lieberman 03897.1.1 979 s t 3.430.2.7 Hospit a .3.051811 l .8 2021-03-30 2021-03-30 [facility] [id number] Univers 08:45:00 08:45:00 GADIEL rodas [facility] 2021-03-24 2021-03-24 Telephone Jailyn, 1.2.840.6 [id number] 21 [id number] Methodi 00:00:00 00:00:[address] 3.430.2.7 Hospit a .3.939255 l .8 2021-02-13 2021-02-13 Telephone Ronald, 1.2.840.4 [id number] 876 [id number] Univers 00:00:00 00:00:00 Santiago 84537.1.1 ity of 3.104.2.7 [place] .3.953918 Medica l .8 [place] 2021-01-28 2021-01-28 Outpatient [facility] [id number] Univers 08:45:00 09:37:00 NIKOLAI barbosa of [facility] 2021-01-28 2021-01-28 Travel 1.2.840.1 1.2.904.579 4493 9777 Univers 00:00:00 00:00:00 78887.1.1 350.1.13.10 ity of 3.104.2.7 4.[place].7.3.698 [place] .3.247651 084.8 Medica l .8 [place] 2021-01-19 2021-01-19 Telephone Prabhu 1.2.840.1 [id number] 2[id number] Methodi 00:00:00 00:00:[address] 3.430.2.7 Hospit a .3.726524 l .8 2021-01-04 2021-01-04 Letter Shelia, 1.2.840.7 [id number] 52296 696 Univers 00:00:00 00:00:00 (Out) Dagoberto H 76798.1.1 ity of 3.104.2.7 [place] .3.057069 Medica l .8 Branch 2021-01-04 2021-01-04 Letter Shelia, 1.2.840.3 [id number] 696 Univers 00:00:00 00:00:00 (Out) Dagoberto H 84570.1.1 ity of 3.104.2.7 [place] .3.507692 Medica l .8 Branch 2021-01-03 2021-01-03 Dmitry Bass, 1.2.840.3 [id number] 27876 790 Univers 00:00:00 00:00:00 (Out) Dagoberto H 30800.1.1 ity of 3.104.2.7 [place] .3.323559 Medica l .8 Branch 2021-01-03 2021-01-03 Letter Shelia, 1.2.840.5 [id number] 85035 790 Univers 00:00:00 00:00:00 (Out) Dagoberto H 06837.1.1 ity of 3.104.2.7 [place] .3.685542 Medica l .8 Branch 2021-01-02 2021-01-02 Outpatient R [facility] [id number] Univers 13:40:00 13:40:00 ity of [facility] 2021-01-02 2021-01-02 Laboratory Cuba Franks 1.2.840.8 [id number] [id number] Univers 12:14:13 12:57:34 Only Lab, Adc Fam Pob I 41174.1.1 ity of 3.104.2.7 [place] .3.356607 Medica l .8 Branch 2021-01-02 2021-01-02 Laboratory [place] Franks 1.2.840.0 904902 4163 [id number] Univers 12:14:13 12:57:34 Only Lab, Star Carrb I 56389.1.1 ity of 3.104.2.7 [place] .3.238749 Medica l .8 [place] 2021-01-02 2021-01-02 Travel 1.2.840.1 1.2.242.863 8453 2306 Univers 00:00:00 00:00:00 64318.1.1 350.1.13.10 ity of 3.104.2.7 4.2.7.3.698 [place] .3.887020 084.8 Medica l .8 [place] 2021-01-02 2021-01-02 Letter Doctor 1.2.840.7 [id number] 84211 948 Univers 00:00:00 00:00:00 (Out) Unassigned, 15976.1.1 ity of [place] 3.104.2.7 [place] .3.965873 Medica l .8 [place] 2021-01-02 2021-01-02 Letter Doctor 1.2.840.1 [id number] 09545 946 Univers 00:00:00 00:00:00 (Out) Unassigned, 38053.1.1 ity of [place] 3.104.2.7 [place] .3.683331 Medica l .8 [place] 2021-01-02 2021-01-02 Travel 1.2.840.1 1.2.361.110 7348 2306 Univers 00:00:00 00:00:00 13456.1.1 350.1.13.10 ity of 3.104.2.7 4.2.7.3.698 [place] .3.896199 084.8 Medica l .8 [place] 2021-01-02 2021-01-02 Letter Doctor 1.2.840.2 [id number] 90700 948 Univers 00:00:00 00:00:00 (Out) Unassigned, 31657.1.1 ity of [place] 3.104.2.7 [place] .3.245766 Medica l .8 Branch 2021-01-02 2021-01-02 Letter Doctor 1.2.840.6 [id number] 33383 946 Univers 00:00:00 00:00:00 (Out) Unassigned, 01623.1.1 ity of [place] 3.104.2.7 [place] .3.543464 Medica l .8 [place] 2020-12-22 2020-12-22 Telephone Beltran, 1.2.840.1 [id number] 862 42040 Univers 00:00:00 00:00:00 Eligionda R 62722.1.1 i ty of 3.104.2.7 [place] .3.111613 Medica l .8 Branch 2020-12-22 2020-12-22 Telephone Beltran, 1.2.840.3 [id number] 862 54842 Univers 00:00:00 00:00:00 Robbi R 34691.1.1 i ty of 3.104.2.7 [place] .3.152312 Medica l .8 [place] 2020-12-12 2020-12-12 Office [place], UTP 6400 1.2.840.114 12 [id number] [place] 07:42:02 08:18:50 [facility] [facility] 350.1.13.58 Health 9.2.7.2.686 [id number] 1 2020-12-12 2020-12-12 Office [place], UTP 6400 1.2.840.114 12 [id number] 07:42:02 08:18:[address] [facility] [address] 350.1.13.58 9.2.7.2.686 [id number] 1 2020-12-09 2020-12-09 Telephone [facility], 1.2.840.1 [id number] Methodi 00:00:00 00:00:00 Sarai Lieberman 70562.1.1 316 s t 3.430.2.7 Hospit a .3.613300 l .8 2020-12-08 2020-12-08 [facility], 1.2.840.1 [id number] 2100 928003 Methodi 12:35:54 23:59:00 Encounter Ray 18542.1.[address] 3.430.2.7 Hospit a .3.185233 l .8 2020-12-08 2020-12-08 Lab Jailyn, 1.2.840.1 [id number] 38437 59790 Methodi 17:25:00 17:30:[address] 3.430.2.7 Hospit a .3.472365 l .8 2020-12-08 2020-12-08 Office Jailyn, 1.2.840.1 [id number] 00582 Methodi 10:30:00 11:39:56 Visit Ray 39064.1.[address] 3.430.2.7 Hospit a .3.721241 l .8 2020-12-08 2020-12-08 Travel 1.2.840.1 1.2.916.557 6166 173561 Methodi 00:00:00 00:00:[address] 3.430.2.7 0.2.7.3.698 Ho spita .3.882669 084.8 l .8 2020-12-02 2020-12-02 Assembler Erector Santiago Cardenas 1.2.840.1 [id number] 316 [id number] Univers 10:20:06 10:36:19 Visit [facility] 05675.1.1 ity of 3.104.2.7 [place] .3.697568 Medica l .8 [place] 2020-12-02 2020-12-02 Assembler Erector [place] Cardenas 1.2.840.1 [id number] 316 [id number] Univers 10:20:06 10:36:19 Visit [facility] 93185.1.1 ity of 3.104.2.7 [place] .3.175610 Medica l .8 [place] 2020-12-02 2020-12-02 Assembler Erector [facility] UNIVERSIT 1.2.840.114 8 [id number] 10:20:06 10:36:19 Visit [facility] 350.1.13.10 [facility] 4.2.7.2.686 112.3827313 [facility] 2020-12-02 2020-12-02 Office Ronald, 1.2.840.2 [id number] 45890 528 Univers 08:31:37 09:01:37 Visit Santiago 41223.1.1 ity of 3.104.2.7 [place] .3.634253 Medica l .8 [place] 2020-12-02 2020-12-02 [facility] [id number] Univers 09:00:00 09:00:00 SANTIAGO ity of [facility] 2020-11-25 2020-11-25 Office Devin, 1.2.840.5 [id number] 41379 865 Univers 11:06:30 11:58:14 Visit Robbi Hairston 80800.1.1 i ty of 3.104.2.7 [place] .3.287719 Medica l .8 [place] 2020-11-25 2020-11-25 Office Devin 1.2.840.7 [id number] 77802 865 Univers 11:06:30 11:58:14 Visit Robbi Hairston 91342.1.1 i ty of 3.104.2.7 [place] .3.283695 Medica l .8 [place] 2020-11-25 2020-11-25 [facility] 1.2.840.114 [id number] 65 11:06:30 11:58:14 Visit Robbi Hairston TELEVISION NEWS REPORTER 350.1.13.10 [facility] 4.2.7.2.686 MATERNAL [id number] & CHILD [address] [place] [address] 2020-11-25 2020-11-25 Outpatient R [facility] [id number] Univers 11:00:00 11:00:00 ity of [facility] 2020-11-25 2020-11-25 Telephone Shelby Beltran.2.840.8 [id number] 855 28718 Univers 00:00:00 00:00:00 Robbi Hairston 08942.1.1 i ty of 3.104.2.7 [place] .3.385293 Medica l .8 [place] 2020-11-25 2020-11-25 Refill East, 1.2.840.6 [id number] 93553 592 Univers 00:00:00 00:00:00 Santiago 23980.1.1 ity of 3.104.2.7 [place] .3.523981 Medica l .8 Branch 2020-11-25 2020-11-25 Travel 1.2.840.1 1.2.101.598 5935 0247 Univers 00:00:00 00:00:00 86982.1.1 350.1.13.10 ity of 3.104.2.7 4.2.7.3.698 [place] .3.941136 084.8 Medica l .8 Branch 2020-11-25 2020-11-25 Orders Doctor 1.2.840.0 [id number] 85462 064 Univers 00:00:00 00:00:00 Only Unassigned, 43338.1.1 ity of [place] 3.104.2.7 [place] .3.312395 Medica l .8 [place] 2020-11-25 2020-11-25 Telephone Beltran, 1.2.840.6 [id number] 855 34362 Univers 00:00:00 00:00:00 Robbi Hairston 88446.1.1 i ty of 3.104.2.7 [place] .3.581104 Medica l .8 Branch 2020-11-25 2020-11-25 Refill [facility], 1.2.840.6 [id number] 28198 592 Univers 00:00:00 00:00:00 Santiago 65084.1.1 ity of 3.104.2.7 [place] .3.182655 Medica l .8 Branch 2020-11-25 2020-11-25 Travel 1.2.840.1 1.2.547.749 2213 0247 Univers 00:00:00 00:00:00 50583.1.1 350.1.13.10 ity of 3.104.2.7 4.2.7.3.698 [place] .3.841743 084.8 Medica l .8 Branch 2020-11-25 2020-11-25 Orders Doctor 1.2.840.1 [id number] 96317 064 Univers 00:00:00 00:00:00 Only Unassigned, 80969.1.1 ity of [place] 3.104.2.7 [place] .3.781336 Medica [address] 2020-11-25 2020-11-25 [facility] 1.2.987.025 9690 4592 00:00:00 00:00:00 [facility] 350.1.13.10 [facility] 4.2.7.2.686 [id number] 089 2020-11-25 2020-11-25 Telephone [facility] 1.2.769.171 1313 0821 00:00:00 00:00:00 Robbi Hairston TELEVISION NEWS REPORTER 350.1.13.10 [facility] 4.2.7.2.686 MATERNAL [id number] & CHILD [address] [place] [address] 2020-11-14 2020-11-14 Abstract Clark, 1.2.840.1 [id number] 00104 20155 Methodi 00:00:00 00:00:[address] 3.430.2.7 Hospit a .3.020582 l .8 2020-11-14 2020-11-14 Telephone Clark 1.2.840.1 [id number] 2100 014383 Methodi 00:00:00 00:00:[address] [address] 3.430.2.7 Hospit a .3.466762 l .8 2020-11-12 2020-11-12 Outpatient [facility] [id number] Univers 08:30:00 08:30:[address] [facility] 2020-11-07 2020-11-07 Telephone Agustina Ortiz 6400 1.2.840.11 4 [id number] [place] 00:00:00 00:00:[address] [facility] 9.2.7.2.686 [id number] 1 2020-11-07 2020-11-07 Telephone KIMBERLEY Ortiz 6400 1.2.840.114 124 [id number] 00:00:00 00:00:[address] 350.1.13.58 9.2.7.2.686 120.8528643 1 2020-10-31 2020-10-31 Office Ap UTP 6400 1.2.840.114 12 [id number] [place] 07:54:00 09:45:[address] 350.1.13.58 Health 9.2.7.2.686 [id number] 1 2020-10-30 2020-10-30 Abstract Rody Maguire UTP 6400 1.2.840.1 14 [id number] [place] 00:00:00 00:00:[address] 350.1.13.58 Health 9.2.7.2.686 613.9644727 1 2020-10-29 2020-10-29 Refill [place], 1.2.840.0 [id number] 97789 400 [facility] 00:00:00 00:00:00 [place] 08462.1.1 ity of 3.104.2.7 [place] .3.477441 Medica l .8 [place] 2020-10-29 2020-10-29 Refill [place], 1.2.840.5 [id number] 97611 400 Univers 00:00:00 00:00:00 [place] 27425.1.1 ity of 3.104.2.7 [place] .3.849580 Medica l .8 [place] 2020-10-27 2020-10-27 Telephone Chirichelle, 1.2.840.7 [id number] 21 [id number] Methodi 00:00:00 00:00:[address] 3.430.2.7 Hospit a .3.038368 l .8 2020-10-24 2020-10-24 Telephone Rodas, 1.2.840.1 [id number] 2100 [id number] Methodi 00:00:00 00:00:[address] 3.430.2.7 Hospit a .3.805932 l .8 2020-10-22 2020-10-22 Outpatient R SELF, [facility] [id number] Univers 13:00:00 13:00:00 GADIEL rodas [facility] 2020-10-22 2020-10-22 Travel 1.2.840.1 1.2.145.794 4623 3839 Univers 00:00:00 00:00:00 41700.1.1 350.1.13.10 ity of 3.104.2.7 4[place].3.698 [place] .3.482253 084.8 Medica l .8 [place] 2020-10-22 2020-10-22 Travel 1.2.840.1 1.2.790.815 7286 3839 [facility] 00:00:00 00:00:00 49626.1.1 350.1.13.10 ity of 3.104.2.7 [place].3.698 [place] .3.475663 084.8 Medica l .8 [place] 2020-10-13 2020-10-13 Outpatient R SELF, [facility] [id number] Univers 08:45:00 08:45:00 GADIEL vogel [facility] 2020-10-06 2020-10-12 Telemedici Jeredimasa, 1.2.840.1 [id number] 21 [id number] Methodi 15:30:00 00:08:46 ne Ray 32449.1.[address] 3.430.2.7 Hospit a .3.943542 l .8 2020-09-30 2020-09-30 Telephone Chihara, 1.2.840.7 [id number] 21 [id number] Methodi 00:00:00 00:00:[address] 3.430.2.7 Hospit a .3.750195 l .8 2020-09-21 2020-09-21 Travel 1.2.840.1 1.2.386.715 6735 191043 Methodi 00:00:00 00:00:[address] 3.430.2.7 0.2.7.3.698 Ho spita .3.310013 084.8 l .8 2020-09-06 2020-09-06 [facility] 1.2.840.1 [id number] 87932 Methodi 17:42:30 23:59:[address] 3.430.2.7 Hospit a .3.512285 l .8 2020-09-06 2020-09-06 [facility], 1.2.840.1 [id number] 2100 [id number] Methodi 16:50:00 17:41:00 Encounter Ray [address]8558.1.[address] 3.430.2.7 Hospit a .3.851787 l .8 2020-09-05 2020-09-05 [facility], 1.2.840.1 [id number] 2099 [id number] Methodi 09:17:00 19:45:00 Encounter Ray [address]57.1.[address] 3.430.2.7 Hospit a .3.769166 l .8 2020-09-05 2020-09-05 Surgery [facility], 1.2.840.1 [id number] 78300 38988 Methodi 11:30:00 13:15:[address] 3.430.2.7 Hospit a .3.502607 l .8 2020-09-05 2020-09-05 Anesthesia Remigio, 1.2.840.1 [id number] 840 [id number] Methodi 11:27:00 12:20:00 Event Saraswathi 54993.1.1 243 s t V. 3.430.2.7 Hospit a .3.829354 l .8 2020-09-05 2020-09-05 Travel 1.2.840.1 1.2.411.196 2245 [id number] Methodi 00:00:00 00:00:[address] 3.430.2.7 0.2.7.3.698 Ho spita .3.558931 084.8 l .8 2020-09-04 2020-09-04 Telephone Meisen[place], 1.2.840.1 [id number] Methodi 00:00:00 00:00:00 Sarai Lieberman 21040.1.1 762 s t 3.430.2.7 Hospit a .3.989319 l .8 2020-09-02 2020-09-02 Telephone [place], 1.2.840.1 [id number] Methodi 00:00:00 00:00:00 Sarai Lieberman 18708.1.1 344 s t 3.430.2.7 Hospit a .3.491702 l .8 2020-08-29 2020-08-30 Bedded [facility] [id number] [facility] 10:20:00 14:10:00 Outpatient r [address] 2020-08-29 2020-08-30 Outpatient HEMATPOUR, [facility] CAR [address]500 [facility] 05:20:00 09:10:00 BEVERLY 2020-08-06 2020-08-06 Office [place], 1.2.840.8 [id number] [id number] [facility] 08:03:23 09:17:49 Visit [place] 43474.1.1 ity of 3.104.2.7 [place] .3.371776 Medica l .8 [place] 2020-08-06 2020-08-06 [facility] [id number] Univers 08:30:00 08:30:00 SANTIAGO barbosa of [facility] 2020-07-14 2020-07-14 Outpatient R SELF, [facility] [id number] Univers 09:30:00 09:30:00 GADIEL barbosa o f [facility] 2020-07-14 2020-07-14 Travel 1.2.840.1 1.2.485.924 [id number] Univers 00:00:00 00:00:00 05581.1.1 350.1.13.10 ity of 3[place]104.2.[place].698 [place] .3.75[place]12 084.8 Medica l .8 [place] 2020-07-14 2020-07-14 Orders Doctor 1.2.840.3 [id number] Univers 00:00:00 00:00:00 Only Unassigned, 89787.1.1 ity of [place] 3.104.2.7 [place] .3.986209 Medica l .8 [place] 2020-06-16 2020-06-16 Outpatient R [facility] [id number] Univers 08:00:00 08:00:00 GADIEL barbosa o f [facility] 2020-06-06 2020-06-06 Telephone East, 1.2.840.2 [id number] Univers 00:00:00 00:00:00 [place] 72793.1.1 ity of 3.104.2.7 [place] .3.140997 Med[facility] l .[place] 2020-06-04 2020-06-04 Assembler Erector RonaldSantiago 1.2.840.1 [id number] Univers 09:31:58 09:40:12 Visit [facility] 75530.1.1 ity of 3.104.2.7 [place] .3.180464 Medica l .8 [place] 2020-06-04 2020-06-04 Office [facility] 1.2.747.737 [id number] Univers 08:13:41 09:28:25 Visit Santiago [facility] 350.1.13.10 i ty of [place] 196.0300725 [facility] porfirio 089 [place] 2020-06-04 2020-06-04 Outpatient R [facility] [id number] Univers 08:30:00 08:30:00 SANTIAGO itcharlie of [facility] 2020-06-04 2020-06-04 Orders Doctor 1.2.840.2 [id number] Univers 00:00:00 00:00:00 Only Unassigned, 50949.1.1 ity of [place] 3.104.2.7 [place] .3.294074 Medica l .8 [place] 2020-05-19 2020-05-19 Telephone East, 1.2.840.5 [id number] Univers 00:00:00 00:00:00 [place] 41523.1.1 ity of 3.104.2.7 [place] .3.832703 Medica l .8 [place] 2020-04-24 2020-04-24 Telephone East, 1.2.840.4 [id number] Univers 00:00:00 00:00:00 [place] 36413.1.1 ity of 3.104.2.7 [place] .3.721999 Medica l .8 [place] 2020-04-14 2020-04-14 Outpatient R EAST, [facility] [id number] Univers 09:00:00 09:00:00 SANTIAGO ity of [facility] 2020-04-14 2020-04-14 Telephone East, 1.2.840.9 [id number] Univers 00:00:00 00:00:00 [place] 04067.1.1 ity of 3.104.2.7 [place] .3.851820 Medica l .8 [place] 2020-03-31 2020-03-31 Outpatient R EAST, [facility] [id number] Univers 08:30:00 08:30:00 SANTIAGO ity of [facility] 2020-03-03 2020-03-03 Outpatient R SELF, [facility] [id number] Univers 08:00:00 08:00:00 GADIEL raheemcharlie o f [facility] 2020-03-03 2020-03-03 Outpatient R SELF, [facility] [id number] Univers 08:00:00 08:00:00 GADIEL barbosa o f [facility] 2020-03-03 2020-03-03 Travel 1.2.840.1 1.2.079.920 [id number] Univers 00:00:00 00:00:00 85928.1.1 350.1.13.10 ity of 3.104.2.[place]3.698 [place] .3.158708 084.8 Med[place] l .8 [place] 2020-02-06 2020-02-06 Telephone East, 1.2.840.5 [id number] Univers 00:00:00 00:00:00 [place] 09628.1.1 ity of 3.104.2.7 [place] .3.501609 Medica l .8 [place] 2020-01-26 2020-01-26 Emergency Caridad, 1.2.840.6 [id number] Univers 10:03:00 13:05:00 Cynise 87625.1.1 ity of 3.104.2.7 [place] .3.537216 Medica l .8 [place] 2020-01-26 2020-01-26 Travel 1.2.840.1 1.2.000.862 [id number] Univers 00:00:00 00:00:00 36704.1.1 350.1.13.10 ity of 3.104.2.[place] 4[place].3.698 [place] .3.782687 084.8 Medica l .8 [place] 2020-01-25 2020-01-25 Outpatient R EAST, [facility] [id number] Univers 08:30:00 08:30:00 SANTIAGO ity of [facility] 2020-01-25 2020-01-25 Telemedici East, 1.2.840.8 [id number] Univers 07:36:49 08:06:49 ne Visit [place] 05918.1.1 ity of 3.104.2.7 [place] .3.474614 Medica l .8 [place] 2020-01-16 2020-01-16 Outpatient R EAST, [facility] [id number] Univers 08:00:00 08:00:00 SANTIAGO ity of [facility] 2020-01-16 2020-01-16 Telephone East, 1.2.840.8 [id number] Univers 00:00:00 00:00:00 [place] 88778.1.1 ity of 3.104.2.7 [place] .3.238957 Medica l .8 [place] 2020-01-14 2020-01-14 Outpatient R SELF, [facility] [id number] Univers 08:00:00 08:00:00 GADIEL rodas [facility] 2019-12-31 2019-12-31 Outpatient R SELF, [facility] [id number] Univers 08:45:00 08:45:00 GADIEL rodas [facility] 2019-10-17 2019-10-17 Outpatient R [facility] [id number] Univers 08:30:00 08:30:[address] [facility] 2019-10-12 2019-10-12 Outpatient R EAST, [facility] [id number] Univers 13:00:00 13:00:[address] [facility] 2019-10-12 2019-10-12 Telemedici East, 1.2.840.3 [id number] Univers 07:38:30 08:08:30 ne Visit [place] 77424.1.1 ity of 3.104.2.7 [place] .3.509166 Medica l .8 [place] 2019-10-08 2019-10-08 [facility] [id number] Univers 10:15:00 10:15:00 GADIEL barbosa o f [facility] 2019-10-03 2019-10-03 Case Assman, 1.2.840.3 [id number] Univers 00:00:00 00:00:00 Management Michael Corbin 06002.1.1 i ty of 3.104.2.7 [place] .3.010585 Medica l .8 [place] 2019-09-27 2019-09-27 Telephone East, 1.2.840.0 [id number] Univers 00:00:00 00:00:00 [place] 33700.1.1 ity of 3.104.2.7 [place] .3.716084 Medica l .8 [place] 2019-09-04 2019-09-04 Refill East, 1.2.840.0 [id number] Univers 00:00:00 00:00:00 [place] 52043.1.1 ity of 3.104.2.7 [place] .3.622917 Medica l .8 [place] 2019-07-24 2019-07-24 Outpatient R [facility] [id number] Univers 08:30:00 08:30:[address] [facility] 2019-07-17 2019-07-17 Outpatient R [facility] [id number] Univers 10:00:00 10:00:[address] [facility] 2019-06-15 2019-06-15 Telephone Ronald, 1.2.840.5 [id number] Univers 00:00:00 00:00:00 [place] 36777.1.1 ity of 3.104.2.7 [place] .3.027463 Medica l .8 [place] 2019-06-13 2019-06-13 Telephone Team, [facility] 1.2.840.4 [id number] Univers 00:00:00 00:00:00 Health 09901.1.1 [place] .3.790391 [place] .8 [place] 2019-05-10 2019-05-10 Refill Ronald, 1.2.840.6 [id number] Univers 00:00:00 00:00:00 [place] 53514.1.1 ity of 3.104.2.7 [place] .3.359743 Medica l .8 [place] 2019-05-09 2019-05-09 Refill Ronald, 1.2.840.7 [id number] Univers 00:00:00 00:00:00 [place] 75302.1.1 ity of 3.104.2.7 [place] .3.081406 Medica l .8 [place] 2019-04-30 2019-04-30 Outpatient R SELF, [facility] [id number] Univers 10:15:00 10:33:05 GADIEL barbosa o f [facility] 2019-04-18 2019-04-18 Assembler Erector [place] Cardenas 1.2.840.1 [id number] Univers 10:00:39 10:44:31 Visit [facility] 99857.1.1 ity of 3.104.2.7 [place] .3.857580 Medica l .8 [place] 2019-04-18 2019-04-18 [facility] [id number] Univers 10:00:00 10:44:31 SANTIAGO ity of [facility] 2019-04-18 2019-04-18 Office Ronald, 1.2.840.5 [id number] Univers 08:27:44 09:53:27 Visit [place] 91260.1.1 ity of 3.104.2.7 [place] .3.641877 Medica l .8 [place] 2019-04-18 2019-04-18 Orders Doctor 1.2.840.7 [id number] Univers 00:00:00 00:00:00 Only Unassigned, 64954.1.1 ity of [place] 3.104.2.7 [place] .3.934064 Medica l .8 [place] 2019-04-11 2019-04-11 Refill East, 1.2.840.9 [id number] Univers 00:00:00 00:00:00 [place] 40350.1.1 ity of 3.104.2.7 [place] .3.251857 Medica l .8 [place] 2019-04-09 2019-04-09 Refill East, 1.2.840.8 [id number] Univers 00:00:00 00:00:00 [place] 20953.1.1 ity of 3.104.2.7 [place] .3.051181 Medica l .8 [place] 2019-04-03 2019-04-03 Telephone Team, [facility] 1.2.840.3 [id number] Univers 00:00:00 00:00:00 Health 61776.1.1 [place] .3.295200 [place] .8 [place] 2019-03-27 2019-03-27 Telephone Self, 1.2.840.9 [id number] Univers 00:00:00 00:00:00 Gadiel 52999.1.1 ity of 3.104.2.7 [place] .3.078617 Medica l .8 [place] 2019-01-17 2019-01-17 Office East, 1.2.840.9 [id number] Univers 07:37:21 10:32:51 Visit Santiago 39518.1.1 ity of 3.104.2.7 [place] .3.064696 Medica l .8 [place] 2019-01-04 2019-01-12 Office Eveline Hansen 1.2.840.3 [id number] Univers 11:19:32 11:08:05 Visit Mariela 91566.1.1 ity of 3.104.2.7 [place] .3.774228 Medica l .8 Branch 2019-01-10 2019-01-10 Telephone Stanislav, 1.2.840.1 [id number] Univers 00:00:00 00:00:00 Eladio Inman 61195.1.1 ity of 3.104.2.7 [place] .3.528696 Medica l .8 Branch 2018-12-18 2018-12-18 Office Geraldine, 1.2.840.8 [id number] Univers 08:48:45 09:13:43 Visit Leyda 88700.1.1 it y of 3.104.2.7 [place] .3.088757 Medica l .8 Branch 2018-10-30 2018-10-30 Telephone East, 1.2.840.3 [id number] Univers 00:00:00 00:00:00 [place] 40142.1.1 ity of 3.104.2.7 [place] .3.461335 Medica l .8 Branch 2018-10-23 2018-10-23 Orders Doctor 1.2.840.7 [id number] Univers 00:00:00 00:00:00 Only Unassigned, 74203.1.1 ity of [place] 3.104.2.7 [place] .3.463669 Medica l .8 Branch 2018-10-23 2018-10-23 Nurse Selvin, 1.2.840.3 [id number] Univers 00:00:00 00:00:00 Triage Stefanie 72467.1.1 ity of 3.104.2.7 [place] .3.053893 Medica l .8 Branch 2018-10-23 2018-10-23 Telephone Self, 1.2.840.2 [id number] Univers 00:00:00 00:00:00 Gadiel 69437.1.1 ity of 3.104.2.7 [place] .3.708252 Medica l .8 Branch 2018-10-20 2018-10-20 Telephone Self, 1.2.840.1 [id number] Univers 00:00:00 00:00:00 Gadiel 96994.1.1 ity of 3.104.2.7 [place] .3.482253 Medica l .8 Branch Results Test Description Test Time Test Comments Results Result Comments Source COMP. METABOLIC PANEL (69610) 2022-05-06 22:42:55 Test Item Value Reference Range Interpretation Comme nts NA (test code = 5926852690) 137 mmol/L 135-145 K (test code = 8420470724) 3.2 mmol/L 3.5-5.0 L CL (test code = 4319076952) 100 mmol/L 98-108 CO2 TOTAL (test code = 4345932747) 23 mmol/L 23-31 AGAP (test code = 5900725520) 2-16 BUN (test code = 9419701166) 41 mg/dL 7-23 H GLUCOSE (test code = 3261005611) 98 mg/dL 70-110 CREATININE (test code = 1.55 mg/dL 0.50-1.04 H 7782182408) TOTAL BILI (test code = 0.8 mg/dL 0.1-1.8 2973762454) CALCIUM (test code = 0487935110) 8.3 mg/dL 8.6-10.6 L T PROTEIN (test code = 9536358886) 6.9 g/dL 6.3-8.2 ALBUMIN (test code = 0830716523) 3.9 g/dL 3.5-5.0 ALK PHOS (test code = 9244447481) 89 U/L 34-122 ALTv (test code = 1742-6) 101 U/L 5-35 H AST(SGOT) (test code = 1979332329) 203 U/L 13-40 H eGFR (test code = 3152572497) mL/min/1.73m2 KYLE (test code = KYLE) Association [...] tests). Lab Interpretation (test code = Abnormal 61467-5) [facility] WITH [id number] 22:33:52 Test Item Value Reference Range Interpretation Comments WBC (test code = See_Comment L [Automated 8590-2) message] The sy stem which generated this result transmitted reference range : 4.30 - 11.10 10*3/?L. The reference range was not used to interpret this result as normal/abnormal . RBC (test code = See_Comment [Automated 269-8) message] The sy stem which [...] RDW-SD (test code = 46.3 fL 39.0-49.9 65059-5) RDW-CV (test code = 13.5 % 12.0-15.5 788-0) PLT (test code = See_Comment L [Automated 777-3) message] The sy stem which generated this result transmitted reference range : 166 - 358 10*3/ ?L. The reference r abbey was not used to interpret this result as normal/abnormal . MPV (test code = 9.5 fL 9.5-12.9 52475-3) NRBC/100 WBC (test See_Comment [Automat ed code = 7287029504) message] The system which generated this result transmitted reference range : 0.0 - 10.0 /100 WBCs. The refer ence range was not u sed to interpret th is result as normal/abnormal . NRBC x10^3 (test code See_Comment [Auto mated = 9328070408) message] The s ystem which generated this result transmitted reference range : 10*3/?L. The reference range was not used to interpret this result as normal/abnormal . GRAN MAT (NEUT) % 58.3 % (test code = 770-8) IMM GRAN % (test code 0.80 % = 0461871555) LYMPH % (test code = 28.1 % 736-9) MONO % (test code = 12.0 % 5905-5) EOS % (test code = 0.5 % 713-8) BASO % (test code = 0.3 % 706-2) GRAN MAT x10^3(ANC) 2.29 10*3/uL 1.88-7.09 (test code = 9024231542) IMM GRAN x10^3 (test 0.03 10*3/uL 0.00-0.06 code = 6246230027) LYMPH x10^3 (test code 1.10 10*3/uL 1.32-3.29 L = 731-0) MONO x10^3 (test code 0.47 10*3/uL 0.33-0.92 = 742-7) EOS x10^3 (test code = 0.03-0.39 L 711-2) BASO x10^3 (test code 0.01-0.07 = 704-7) Lab Interpretation Abnormal (test code = 86413-8) [facility] METABOLIC PANEL (NA, K, CL, CO2, GLUCOSE, BUN, CREATININE, CA)2022-04-22 21:43:42 Test Item Value Reference Range Interpretation Comments NA (test code = 142 mmol/L 135-145 1360297525) K (test code = 3.5 mmol/L 3.5-5.0 5328455904) CL (test code = 106 mmol/L 98-108 7404354846) CO2 TOTAL (test code = 26 mmol/L 23-31 2048329160) AGAP (test code = 2-16 8827626940) BUN (test code = 29 mg/dL 7-23 H 8014902579) GLUCOSE (test code = 84 mg/dL 70-110 9139778030) CREATININE (test code = 1.16 mg/dL 0.50-1.04 H 8528698655) CALCIUM (test code = 8.2 mg/dL 8.6-10.6 L 1997733020) eGFR (test code = mL/min/1.73m2 9420979642) KYLE (test code = KYLE) Association of [...] tests). Lab Interpretation Abnormal (test code = 93941-1) [facility] WITH [id number] 21:33:01 Test Item Value Reference Range Interpretation [...] (test code = 50.7 fL 39.0-49.9 H 83644-3) RDW-CV (test code = 14.6 % 12.0-15.5 788-0) PLT (test code = See_Comment L [Automated 777-3) message] The sy stem which generated this result transmitted reference range : 166 - 358 10*3/ ?L. The reference r abbey was not used to interpret this result as normal/abnormal . MPV (test code = 8.8 fL 9.5-12.9 L 36426-7) NRBC/100 WBC (test See_Comment [Automat ed code = 0822080844) message] The system which generated this result transmitted reference range : 0.0 - 10.0 /100 WBCs. The refer ence range was not u sed to interpret th is result as normal/abnormal . NRBC x10^3 (test code See_Comment [Auto mated = 1829862875) message] The s ystem which generated this result transmitted reference range : 10*3/?L. The reference range was not used to interpret this result as normal/abnormal . GRAN MAT (NEUT) % 70.9 % (test code = 770-8) IMM GRAN % (test code 0.50 % = 9284301088) LYMPH % (test code = 17.4 % 736-9) MONO % (test code = 9.0 % 5905-5) EOS % (test code = 1.7 % 713-8) BASO % (test code = 0.5 % 706-2) GRAN MAT x10^3(ANC) 4.60 10*3/uL 1.88-7.09 (test code = 5657967503) IMM GRAN x10^3 (test 0.03 10*3/uL 0.00-0.06 code = 0273757763) LYMPH x10^3 (test code 1.13 10*3/uL 1.32-3.29 L = 731-0) MONO x10^3 (test code 0.58 10*3/uL 0.33-0.92 = 742-7) EOS x10^3 (test code = 0.11 10*3/uL 0.03-0.39 711-2) BASO x10^3 (test code 0.03 10*3/uL 0.01-0.07 = 704-7) Lab Interpretation Abnormal (test code = 42182-8) [facility] [id number] 06:01:07 Test Item Value Reference Range Interpretation Comments Blood Culture-Aerobic No organisms No growth Previo us (test code = 09293-7) isolated prelim inary verified result was Culture [...] Culture-Anaerobic isolated preliminar y (test code = 39681-7) verifi ed result was Culture In Progress [...] CDT Lab Interpretation Normal (test code = 41305-3) [facility] CULTURE [id number] 06:01:07 Test Item Value Reference Range Interpretation Comments Blood Culture-Aerobic No organisms No growth Previo us (test code = 64284-2) isolated prelim inary verified result was Culture [...] Culture-Anaerobic isolated preliminar y (test code = 80454-3) verifi ed result was Culture In Progress [...] CDT Lab Interpretation Normal (test code = 48278-6) [facility] CULTURE [id number] 06:01:07 Test Item Value Reference Range Interpretation Comments Blood Culture-Aerobic No organisms No growth Previo us (test code = 52211-1) isolated prelim inary verified result was Culture [...] Culture-Anaerobic isolated preliminar y (test code = 25490-4) verifi ed result was Culture In Progress [...] CDT Lab Interpretation Normal (test code = 68381-5) [facility] [id number] 10:49:10 Test Item Value Reference Range Interpretation Comments NT-proBNP (test code 2660 pg/mL See_Comment H [Autom ated = 1622131017) message] The system which generated this result transmitted reference range : <=125. The reference range was not used to interpret this result as normal/abnormal . KYLE (test code = KLYE) Biotin has been reported to cause a negative bias, interpret results relative to patient's use of biotin. Lab Interpretation Abnormal (test code = 43449-3) [facility] [id number] 10:49:10 Test Item Value Reference Range Interpretation Comments NT-proBNP (test code 2660 pg/mL See_Comment H [Autom ated = 7188304539) message] The system which generated this result transmitted reference range : <=125. The reference range was not used to interpret this result as normal/abnormal . KYLE (test code = KYLE) Biotin has been reported to cause a negative bias, interpret results relative to patient's use of biotin. Lab Interpretation Abnormal (test code = 65867-8) [facility] METABOLIC PANEL (NA, K, CL, CO2, GLUCOSE, BUN, CREATININE, CA)2022-02-15 10:44:07 Test Item Value Reference Range Interpretation Comments NA (test code = 134 mmol/L 135-145 L 1452126576) K (test code = 3.2 mmol/L 3.5-5 L 6348103447) CL (test code = 98 mmol/L 98-108 2164120955) CO2 TOTAL (test code = 27 mmol/L 23-31 8038454851) AGAP (test code = 2-16 6207445189) BUN (test code = 19 mg/dL 7-23 8200342581) GLUCOSE (test code = 102 mg/dL 70-110 1974017953) CREATININE (test code = 0.95 mg/dL 0.5-1.04 1695292751) CALCIUM (test code = 8.5 mg/dL 8.6-10.6 L 1314652855) eGFR (test code = mL/min/1.73m2 9500337527) KYLE (test code = KYLE) Association of [...] tests). Lab Interpretation Abnormal (test code = 75191-1) [facility] Test Item Value Reference Range Interpretation Comments MAGNESIUM (test code = 8642951400) 1.8 mg/dL 1.7-2.4 Lab Interpretation (test code = Normal 02719-7) [facility] 10:44:07 Test Item Value Reference Range Interpretation Comments MAGNESIUM (test code = 2479404897) 1.8 mg/dL 1.7-2.4 Lab Interpretation (test code = Normal 78030-7) [facility] (NA, K, CL, CO2, GLUCOSE, BUN, CREATININE, CA)2022-02-15 10:44:07 Test Item Value Reference Range Interpretation Comments NA (test code = 134 mmol/L 135-145 L 8881053530) K (test code = 3.2 mmol/L 3.5-5.0 L 7788052675) CL (test code = 98 mmol/L 98-108 2409523322) CO2 TOTAL (test code = 27 mmol/L 23-31 3129154451) AGAP (test code = 2-16 7079263825) BUN (test code = 19 mg/dL 7-23 7474293943) GLUCOSE (test code = 102 mg/dL 70-110 6480502672) CREATININE (test code = 0.95 mg/dL 0.50-1.04 8629620004) CALCIUM (test code = 8.5 mg/dL 8.6-10.6 L 0012142676) eGFR (test code = mL/min/1.73m2 9863081329) KYLE (test code = KYLE) Association of [...] tests). Lab Interpretation Abnormal (test code = 90210-0) [facility] WITH [id number] 10:12:06 Test Item Value Reference Range Interpretation [...] RDW-SD (test code = 47.8 fL 39-49.9 16211-0) RDW-CV (test code = 15.2 % 12-15.5 788-0) PLT (test code = See_Comment L [Automated 777-3) message] The sy stem which generated this result transmitted reference range : 166 - 358 10*3/ ?L. The reference r abbey was not used to interpret this result as normal/abnormal . MPV (test code = 8.9 fL 9.5-12.9 L 04025-4) NRBC/100 WBC (test See_Comment [Automat ed code = 7487643080) message] The system which generated this result transmitted reference range : 0.0 - 10.0 /100 WBCs. The refer ence range was not u sed to interpret th is result as normal/abnormal . NRBC x10^3 (test code See_Comment [Auto mated = 6729227783) message] The s ystem which generated this result transmitted reference range : 10*3/?L. The reference range was not used to interpret this result as normal/abnormal . GRAN MAT (NEUT) % 65.9 % (test code = 770-8) IMM GRAN % (test code 0.30 % = 9101743915) LYMPH % (test code = 21.0 % 736-9) MONO % (test code = 10.1 % 5905-5) EOS % (test code = 2.4 % 713-8) BASO % (test code = 0.3 % 706-2) GRAN MAT x10^3(ANC) 2.49 10*3/uL 1.88-7.09 (test code = 8186110644) IMM GRAN x10^3 (test 0-0.06 code = 2476915798) LYMPH x10^3 (test code 0.79 10*3/uL 1.32-3.29 L = 731-0) MONO x10^3 (test code 0.38 10*3/uL 0.33-0.92 = 742-7) EOS x10^3 (test code = 0.09 10*3/uL 0.03-0.39 711-2) BASO x10^3 (test code 0.01-0.07 = 704-7) Lab Interpretation Abnormal (test code = 67019-5) [facility] WITH [id number] 10:12:06 Test Item Value Reference Range Interpretation [...] RDW-SD (test code = 47.8 fL 39.0-49.9 94294-0) RDW-CV (test code = 15.2 % 12.0-15.5 788-0) PLT (test code = See_Comment L [Automated 777-3) message] The sy stem which generated this result transmitted reference range : 166 - 358 10*3/ ?L. The reference r abbey was not used to interpret this result as normal/abnormal . MPV (test code = 8.9 fL 9.5-12.9 L 39282-7) NRBC/100 WBC (test See_Comment [Automat ed code = 1763191302) message] The system which generated this result transmitted reference range : 0.0 - 10.0 /100 WBCs. The refer ence range was not u sed to interpret th is result as normal/abnormal . NRBC x10^3 (test code See_Comment [Auto mated = [id number]) message] The s ystem which generated this result transmitted reference range : 10*3/?L. The reference range was not used to interpret this result as normal/abnormal . GRAN MAT (NEUT) % 65.9 % (test code = 770-8) IMM GRAN % (test code 0.30 % = [id number]) LYMPH % (test code = 21.0 % 736-9) MONO % (test code = 10.1 % 5905-5) EOS % (test code = 2.4 % 713-8) BASO % (test code = 0.3 % 706-2) GRAN MAT x10^3(ANC) 2.49 10*3/uL 1.88-7.09 (test code = [id number]) IMM GRAN x10^3 (test 0.00-0.06 code = [id number]) LYMPH x10^3 (test code 0.79 10*3/uL 1.32-3.29 L = 731-0) MONO x10^3 (test code 0.38 10*3/uL 0.33-0.92 = 742-7) EOS x10^3 (test code = 0.09 10*3/uL 0.03-0.39 711-2) BASO x10^3 (test code 0.01-0.07 = 704-7) Lab Interpretation Abnormal (test code = 08193-4) [facility] WITH [id number] 11:18:28 Test Item Value Reference Range Interpretation [...] RDW-SD (test code = 49.5 fL 39-49.9 45824-4) RDW-CV (test code = 15.5 % 12-15.5 788-0) PLT (test code = See_Comment L [Automated 777-3) message] The sy stem which generated this result transmitted reference range : 166 - 358 10*3/ ?L. The reference r abbey was not used to interpret this result as normal/abnormal . MPV (test code = 11.4 fL 9.5-12.9 43342-3) IPF % (test code = 8.7 % 1.3-7.7 H Platelet count [id number]) measured by fluorescence method. NRBC/100 WBC (test See_Comment [Automat ed code = [id number]) message] The system which generated this result transmitted reference range : 0.0 - 10.0 /100 WBCs. The refer ence range was not u sed to interpret th is result as normal/abnormal . NRBC x10^3 (test code See_Comment [Auto mated = [id number]) message] The s ystem which generated this result transmitted reference range : 10*3/?L. The reference range was not used to interpret this result as normal/abnormal . GRAN MAT (NEUT) % 62.0 % (test code = 770-8) IMM GRAN % (test code 0.80 % = [id number]) LYMPH % (test code = 22.2 % 736-9) MONO % (test code = 9.6 % 5905-5) EOS % (test code = 5.1 % 713-8) BASO % (test code = 0.3 % 706-2) GRAN MAT x10^3(ANC) 2.21 10*3/uL 1.88-7.09 (test code = [id number]) IMM GRAN x10^3 (test 0.03 10*3/uL 0-0.06 code = [id number]) LYMPH x10^3 (test code 0.79 10*3/uL 1.32-3.29 L = 731-0) MONO x10^3 (test code 0.34 10*3/uL 0.33-0.92 = 742-7) EOS x10^3 (test code = 0.18 10*3/uL 0.03-0.39 711-2) BASO x10^3 (test code 0.01-0.07 = 704-7) POLYCHROMASIA (test 2+ See_Comment [Automa arpit code = 56280-4) message] The system which generated this result [...] . Lab Interpretation Abnormal (test code = 36137-3) [facility] METABOLIC PANEL (NA, K, CL, CO2, GLUCOSE, BUN, CREATININE, CA)2022-02-13 10:39:07 Test Item Value Reference Range Interpretation Comments NA (test code = 136 mmol/L 135-145 3804442276) K (test code = 4.1 mmol/L 3.5-5 3501862784) CL (test code = 102 mmol/L 98-108 7099506172) CO2 TOTAL (test code = 27 mmol/L 23-31 4032654705) AGAP (test code = 2-16 5280989410) BUN (test code = 22 mg/dL 7-23 3753927657) GLUCOSE (test code = 94 mg/dL 70-110 1908300691) CREATININE (test code = 0.94 mg/dL 0.5-1.04 8507260312) CALCIUM (test code = 8.1 mg/dL 8.6-10.6 L 9744668532) eGFR (test code = mL/min/1.73m2 1917756605) KYLE (test code = KYLE) Association of [...] tests). Lab Interpretation Abnormal (test code = 21373-7) [facility]2022-02-12 01:50:10 Test Item Value Reference Range Interpretation Comments Height (test code = in 5218859093) Weight (test code = lbs 9761412339) Systolic BP (test code mmHg = 1479030350) Diastolic BP (test code mmHg = 8287045134) Heart Rate (test code = bpm 2346775655) BSA (test code = 1.85 m2 6593864061) IVS (test code = 1.22 cm 5698396194) Interventricular Septum 1.22 cm Diastolic Thickness by 2D (test code = 2934911) LVIDD (test code = 5.00 cm 4195723895) Left Ventricular End 117.9 mL Diastolic Volume by Teichholz Method (test code = 3009442) LVPWD (test code = 1.22 cm 9862052788) PW (test code = 1.22 cm 0.6-1.9 4530671543) EF(Teich) (test code = 74.60 % 1257828727) LVIDS (test code = 2.80 cm 1099301236) Left Ventricular End 29.9 mL Systolic Volume by Teichholz Method (test code = 2158192) FS (test code = 44 % 6841147373) EF - 2D (test code = 74.60 % 07936250) LVOT diameter (test 2.16 cm code = 3850202858) LVOT area (test code = 3.70 cm2 5467791840) Ao root diam (test code 3.40 cm = 5809285522) Aortic root (test code 3.4 cm = 3952642688) Ao root annulus (test 3.4 cm code = 5773721115) LA size (test code = 3.4 cm 1926006773) TR Peak Spencer (test code 330.0 cm/s = 9089784148) Triscuspid Valve mmHg Regurgitation Peak Gradient (test code = 7988957459) PV REGURGITATION PEAK mmHg GRADIENT (test code = 7078876438) PI dec slope (test code 137.20 cm/s2 = 0122982140) LAV(MOD-sp4) (test code 102.90 mL = 6960466463) MV Peak E Spencer (test 84.1 cm/s code = 9791316125) MV Peak A Spencer (test 40.1 cm/s code = 1189894766) E/A ratio (test code = ratio 2244960913) MV valve area p 1/2 3.70 cm2 method (test code = 6488344523) MV dec slope (test code 413.00 cm/s2 = 4865023189) MV P1/2t max spencer (test 83.70 cm/s code = 7325463222) MV Prop V (test code = 41.80 cm/s 8808390081) Tapse (test code = 1.83 cm 4011982061) LVOT stroke volume 96.90 cm3 (test code = 7394587567) LVOT peak spencer (test 125.5 cm/s code = 9899708455) LVOT mn grad (test code mmHg = 2846453029) AV LVOT peak gradient mmHg (test code = 6810129978) LVOT peak VTI (test 26.4 cm code = 0427537932) LV V1 mean (test code = 78.10 cm/s 0126785900) Aortic valve mean 103.7 cm/s velocity (test code = 7374587336) Ao peak spencer (test code 165.6 cm/s = 7690932686) Ao VTI (test code = 37.2 cm 9578422402) AV area by cont VTI 2.6 cm2 (test code = 9697816846) AV area peak spencer (test 2.8 cm2 code = 4681597690) Ao max PG (test code = 11.00 mm[Hg] 0047503049) AV peak gradient (test mmHg code = 9738301431) AV valve area (test 2.60 cm2 code = 9964225790) AV mean gradient (test mmHg code = 7632686446) LA Volume Index (BP) 55.2 mL/m2 (test code = 3721923929) LA volume (BP) (test 102.1 mL code = 3212617599) LAV(MOD-sp2) (test code 86.10 mL = 5884676604) A2C EF (test code = 61.20 % 5803210699) EF(sp2-el) (test code = 61.60 % 7911079030) SV(MOD-sp2) (test code 47.10 mL = 9971448939) LV Diastolic Volume 70.7 mL (BP) (test code = 1255958292) A4C EF (test code = 53.00 % 0836367876) EF(MOD-bp) (test code = 56.70 % 5247295335) EF(sp4-el) (test code = 53.90 % 3139527613) LV Systolic Volume (BP) 30.6 mL (test code = 3205954539) SV(MOD-bp) (test code = 40.10 mL 4651756426) SV(MOD-sp4) (test code 32.40 mL = 1794023263) SV(sp4-el) (test code = 33.10 mL 8810878047) EF (test code = 5079309752) Left Ventricular Stroke 40.1 mL Volume by 2-D Biplane-MOD (test code = 1419828) LV Diastolic Volume 38.2 mL/m2 Index (BP) (test code = 6968544608) LV Systolic Volume 16.5 mL/m2 Index (BP) (test code = 7444450197) Radiology Study observation (narrative) (test code = 75176-2) KYLE (test code = KYLE) ?Left?Ventricle: Left [...] [facility] EDSTEFANI [id number] 05:45:01 Test Item Value Reference Interpretation Comments Range TROPONIN I (test See_Comment [Automated code = 9839176312) message] The system which generated this result [...] biotin. Lab Interpretation Normal (test code = 26265-1) [facility]-TERMINAL WUQ-QOE8729-41-22 05:41:40 Test Item Value Reference Range Interpretation Comments NT-proBNP (test code 4250 pg/mL See_Comment H [Autom ated = 3145127386) message] The system which generated this result transmitted reference range : <=125. The reference range was not used to interpret this result as normal/abnormal . KYLE (test code = KYLE) Biotin has been reported to cause a negative bias, interpret results relative to patient's use of biotin. Lab Interpretation Abnormal (test code = 97000-3) [facility] THRMPLAS [id number] 05:35:21 Test Item Value Reference Range Interpretation Comments APTT Patient (test See_Comment [Automat ed code = 3173-2) message] The system which generated this result transmitted reference range : 23 - 38 Seconds . The reference range was not used to interpr et this result as normal/abnormal . KYLE (test code = KYLE) The [facility] patient population mean normal value for aPTT is 30 seconds. Lab Interpretation Normal (test code = 25344-8) [facility] [id number] 05:35:21 Test Item Value Reference Range Interpretation Comments APTT Patient (test See_Comment [Automat ed code = 3173-2) message] The system which generated this result transmitted reference range : 23 - 38 Seconds . The reference range was not used to interpr et this result as normal/abnormal . KYLE (test code = KYLE) The [facility] patient population mean normal value for aPTT is 30 seconds. Lab Interpretation Normal (test code = 94856-9) [facility] IrvingPROTHROMBIN TIME / [id number] 05:33:21 Test Item Value Reference Range Interpretation Comments PROTIME PATIENT (test See_Comment [Auto mated message] code = 5964-2) The system [employer] generated this result transmitted ref erence range: 12.0 - 1 4.7 Seconds. The re ference range was not u sed to interpret this result as normal/abnor mal. INR (test code = 6301-6) Nor mal INR <1.1; Warfarin Therap eutic range 2.0 to 3. 0 or 2.5 to 3.5, dep ending upon the indica tions. Lab Interpretation (test Normal code = 64439-2) [facility]. METABOLIC PANEL (10587)2022-02-11 05:33:21 Test Item Value Reference Range Interpretation Comments NA (test code = 137 mmol/L 135-145 6492027419) K (test code = 4.3 mmol/L 3.5-5 9216482737) CL (test code = 103 mmol/L 98-108 0020346480) CO2 TOTAL (test code = 25 mmol/L 23-31 5156672833) AGAP (test code = 2-16 1316118321) BUN (test code = 19 mg/dL 7-23 1894623370) GLUCOSE (test code = 120 mg/dL 70-110 H 6232169089) CREATININE (test code = 1.15 mg/dL 0.5-1.04 H 6912612748) TOTAL BILI (test code = 0.9 mg/dL 0.1-1.2 3974140748) CALCIUM (test code = 8.9 mg/dL 8.6-10.6 9210126194) T PROTEIN (test code = 6.6 g/dL 6.3-8.2 6555128240) ALBUMIN (test code = 4.0 g/dL 3.5-5 8976006678) ALK PHOS (test code = 73 U/L 34-122 9356496617) ALTv (test code = 18 U/L 5-35 1742-6) AST(SGOT) (test code = 31 U/L 13-40 4998544851) eGFR (test code = mL/min/1.73m2 4322783633) KYLE (test code = KYLE) Association of [...] tests). Lab Interpretation Abnormal (test code = 23009-6) [facility]. METABOLIC PANEL (76148)2022-02-11 05:33:21 Test Item Value Reference Range Interpretation Comments NA (test code = 137 mmol/L 135-145 7997065267) K (test code = 4.3 mmol/L 3.5-5.0 2173309891) CL (test code = 103 mmol/L 98-108 5947891538) CO2 TOTAL (test code = 25 mmol/L 23-31 7368826443) AGAP (test code = 2-16 1875075290) BUN (test code = 19 mg/dL 7-23 1278962891) GLUCOSE (test code = 120 mg/dL 70-110 H 0025549348) CREATININE (test code = 1.15 mg/dL 0.50-1.04 H 4469759756) TOTAL BILI (test code = 0.9 mg/dL 0.1-1.8 1359265625) CALCIUM (test code = 8.9 mg/dL 8.6-10.6 2987261739) T PROTEIN (test code = 6.6 g/dL 6.3-8.2 6508686143) ALBUMIN (test code = 4.0 g/dL 3.5-5.0 5213585536) ALK PHOS (test code = 73 U/L 34-122 5018831329) ALTv (test code = 18 U/L 5-35 1742-6) AST(SGOT) (test code = 31 U/L 13-40 7559839922) eGFR (test code = mL/min/1.73m2 9028050994) KYLE (test code = KYLE) Association of [...] tests). Lab Interpretation Abnormal (test code = 16253-6) [facility] Irving[facility]OM[facility] / [id number] 05:33:21 Test Item Value Reference Range Interpretation [...] tions. Lab Interpretation (test Normal code = 75693-5) [facility] WITH [id number] 05:14:37 Test Item Value Reference Range Interpretation [...] RDW-SD (test code = 47.9 fL 39-49.9 37997-3) RDW-CV (test code = 14.9 % 12-15.5 788-0) PLT (test code = See_Comment L [Automated 777-3) message] The sy stem which generated this result transmitted reference range : 166 - 358 10*3/ ?L. The reference r abbey was not used to interpret this result as normal/abnormal . MPV (test code = 9.1 fL 9.5-12.9 L 27746-5) NRBC/100 WBC (test See_Comment [Automat ed code = 2762854239) message] The system which generated this result transmitted reference range : 0.0 - 10.0 /100 WBCs. The refer ence range was not u sed to interpret th is result as normal/abnormal . NRBC x10^3 (test code See_Comment [Auto mated = 7535529263) message] The s ystem which generated this result transmitted reference range : 10*3/?L. The reference range was not used to interpret this result as normal/abnormal . GRAN MAT (NEUT) % 78.5 % (test code = 770-8) IMM GRAN % (test code 0.20 % = 0567681752) LYMPH % (test code = 11.6 % 736-9) MONO % (test code = 8.4 % 5905-5) EOS % (test code = 1.1 % 713-8) BASO % (test code = 0.2 % 706-2) GRAN MAT x10^3(ANC) 3.45 10*3/uL 1.88-7.09 (test code = 2323751118) IMM GRAN x10^3 (test 0-0.06 code = 5827482081) LYMPH x10^3 (test code 0.51 10*3/uL 1.32-3.29 L = 731-0) MONO x10^3 (test code 0.37 10*3/uL 0.33-0.92 = 742-7) EOS x10^3 (test code = 0.05 10*3/uL 0.03-0.39 711-2) BASO x10^3 (test code 0.01-0.07 = 704-7) Lab Interpretation Abnormal (test code = 20575-3) [facility] Coronavirus 2018 Eozqxgw5110-14-97 18:08:00 Test Item Value Reference Range Interpretation [...] det ection of nucleic acids f rom erxUAOW-SnZ-0 v irus and diagnosis of SA RS-CoV-2 virusinfection. It is an Emergency Use Authorization ( EUA) testauthorized by the U.S. FDA. BASIC METABOLIC [id number] 09:37:00 Test Item Value Reference Range Interpretation [...] = 9.0 mg/dL 8.0-10.5 N CA) PROTHROMBIN [id number] 09:32:00 Test Item Value Reference Range Interpretation [...] (to prevent recurrent infar ct). 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 [facility] - XR CHEST 1 [id number] 00:00:00 [facility] : 1955 Sex: F FAX: Carmenza Kelly DO [phone] [place]: St: [facility] FAX: Mike Scales MD [phone] FAX: Bahman Chopra [phone] Name: MARJAN FLEMING [facility] : 1955 Age/S: 66/F [address] [place] [address] Unit #: [id number] Loc: [place] [address] Phys: 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 BASIC METABOLIC [id number] 11:37:00 Test Item Value Reference Range Interpretation [...] code = 9.0 mg/dL 8.0-10.5 N CA) BFZWHPVNTV6394-39-60 11:37:00 Test Item Value Reference Range Interpretation Comments PREALBUMIN (test code = PREALB) 24.3 mg/dL 16.0-40.0 N PROTHROMBIN [id number] 11:03:00 Test Item Value Reference Range Interpretation [...] (to prevent recurrent infar ct). CBC W/AUTO [id number] 10:59:00 Test Item Value Reference Range Interpretation [...] code = 0.00 x10 3/uL 0.0-0.1 N [facility]#) - XR CHEST 2 [id number] 00:00:00 [facility] : 1955 Sex: F FAX: Carmenza Olivera DO [phone] [place]: St: PRE FAX: Mike Scales MD [phone] Name: MARJAN FLEMING [facility] : 1955 Age/S: 66/F [address] [place] [address] Unit #: [id number] Loc: [place] [address] Phys: Mike Lund MD Acct: [id number] Dis Date: Status: PRE [facility] PHONE #: [phone] Exam Date: 06/16/2021 1120 FAX #: [phone] Reason: PREOP EXAMS: CPT CODE: [id number] XR CHEST 2 V 67548 PROCEDURE INFORMATION: Exam: XR Chest Exam date [...] MD Technologist: RT Andree(R) Trnscrd Date/Time/By: 06/16/2021 (6899) : By: [email or web address] Orig Print D/T: S: 06/16/2021 (6938) PAGE 1 Signed ReportGastrointestinal zuayi6205-49-99 04:35:05 Test Item Value Reference Interpretation Comments [...] Rotavirus PCR (test Not Detected code = 1325776) Salmonella PCR (test Not Detected code = [...] PCR Not Detected (test code = 7124) [facility] ewrtdcq1960-17-51 19:30:47 Test Item Value Reference Range Interpretation Comments Case number (test [id number] code = 0776681) Surgical pathology See link below for PDF report (test code = Lab Report 2255) Result status (test This is Supplemental code = 7231454) Report for [id number] [facility]2021-04-09 16:31:00 Test Item Value Reference Range Interpretation Comments POC Activated Clotting Time (test code 153 s = POC Activated Clotting Time) [facility] CenterSfmfvgtSWOJRBYPOP6288-73-35 16:31:00 Test Item Value Reference Range Interpretation Comments POC Activated Clotting Time (test code 153 s = POC Activated Clotting Time) [facility] CenterErebikaCKLEOASWVK3957-23-30 16:31:00 Test Item Value Reference Range Interpretation Comments POC Activated Clotting Time (test code 153 s = POC Activated Clotting Time) [facility] CenterZbdyoceRHYQHEFSJU5938-60-96 16:31:00 Test Item Value Reference Range Interpretation Comments POC Activated Clotting Time (test code 153 s = POC Activated Clotting Time) [facility] CenterCxtsxtsZFXMHCVWCM6232-40-08 16:31:00 Test Item Value Reference Range Interpretation Comments POC Activated Clotting Time (test code 153 s = POC Activated Clotting Time) [facility] CenterCjwnrgiPQRHSFJTWA8232-25-51 16:31:00 Test Item Value Reference Range Interpretation Comments POC Activated Clotting Time (test code 153 s = POC Activated Clotting Time) [facility] CenterIcibnbmAPVESWBGBF8132-12-62 16:31:00 Test Item Value Reference Range Interpretation Comments POC Activated Clotting Time (test code 153 s = POC Activated Clotting Time) [facility] CenterOizfrnnESJEQOUYNX8093-32-78 14:37:00 Test Item Value Reference Range Interpretation Comments POC Activated Clotting Time (test code 454 s = POC Activated Clotting Time) [facility] CenterNxefgivGSGMCJSAWB9534-02-26 14:37:00 Test Item Value Reference Range Interpretation Comments POC Activated Clotting Time (test code 454 s = POC Activated Clotting Time) [facility] CenterZmmpyanQYIRBKJGFD1160-00-88 14:37:00 Test Item Value Reference Range Interpretation Comments POC Activated Clotting Time (test code 454 s = POC Activated Clotting Time) [facility] CenterZagwbujDCQGUBDTTN2583-68-80 14:37:00 Test Item Value Reference Range Interpretation Comments POC Activated Clotting Time (test code 454 s = POC Activated Clotting Time) [facility] CenterVavtbjnFISOVZSSZN1456-53-54 14:37:00 Test Item Value Reference Range Interpretation Comments POC Activated Clotting Time (test code 454 s = POC Activated Clotting Time) [facility] CenterSyuwblyHTGSYAAOPL6491-13-78 14:37:00 Test Item Value Reference Range Interpretation Comments POC Activated Clotting Time (test code 454 s = POC Activated Clotting Time) [facility] CenterNjoxukgVIBVAUYFGT1345-79-06 14:37:00 Test Item Value Reference Range Interpretation Comments POC Activated Clotting Time (test code 454 s = POC Activated Clotting Time) [facility] CenterNqmixhoFMZZQIOHPT0048-41-00 14:13:00 Test Item Value Reference Range Interpretation Comments POC Activated Clotting Time (test code 354 s = POC Activated Clotting Time) [facility] CenterNnrgxqiPZCDSYKFHN4214-53-03 14:13:00 Test Item Value Reference Range Interpretation Comments POC Activated Clotting Time (test code 354 s = POC Activated Clotting Time) [facility] CenterJcbkfwoAUVZNCWJOF1406-48-73 14:13:00 Test Item Value Reference Range Interpretation Comments POC Activated Clotting Time (test code 354 s = POC Activated Clotting Time) [facility] CenterHeftcigQENAMIUPQL4784-10-69 14:13:00 Test Item Value Reference Range Interpretation Comments POC Activated Clotting Time (test code 354 s = POC Activated Clotting Time) [facility] CenterRfcuctoYTWKEDOTIC0801-39-48 14:13:00 Test Item Value Reference Range Interpretation Comments POC Activated Clotting Time (test code 354 s = POC Activated Clotting Time) [facility] CenterTuetrteUBFBHPNMPF5706-81-15 14:13:00 Test Item Value Reference Range Interpretation Comments POC Activated Clotting Time (test code 354 s = POC Activated Clotting Time) [facility] CenterXirjayeUTBHFPONIR3295-48-61 14:13:00 Test Item Value Reference Range Interpretation Comments POC Activated Clotting Time (test code 354 s = POC Activated Clotting Time) [facility] BANK LWVSXTT5571-70-85 10:37:00Negative (08/29/20 5:37 AM) [facility] XJBYI4269-59-31 10:37:42859Alcjnaln HermannCHEM PANEL 2020-08-29 10:37:0028[facility] HermannCHEM KEYLE2893-33-00 10:37:001.01[facility] HermannCHEM KNAMD0020-04-95 10:37:95500Kbwckpkj HermannCHEM VBVRR5428-10-76 10:37:003.8[facility] HermannCHEM HVCXQ9373-87-97 10:37:13588Dqnrimsu HermannCHEM PTINR1201-45-32 10:37:0028[facility] HermannCHEM CUTYO2852-75-27 10:37:009.8 [facility]annCHEM RRUVB6892-67-84 10:37:0011.8[facility] HermannCHEM PANEL 2020-08-29 10:37:0059[facility] HermannCHEM WTSKP3711-34-36 10:37:002.9[facility] WadhpryYTRXDFBHUZ9002-05-95 10:37:006.8[facility] QygtjxeXAINHRVZIV9718-45-62 10:37:004.47[facility] OcopuabDPIFAFMRGS8594-60-31 10:37:0010.6[facility] BBIJKWKQBT9266-03-53 10:37:0034.0[facility] RgphtpqXDHDQLFKUI3105-16-29 10:37:00 76.1[facility] YwsnjzwGAYRSCUXLA4873-09-66 10:37:00 Test Item Value Reference Range Interpretation Comments MCH (test code = MCH) 23.8 pg 27.0-31.0 [facility] QdsbzntCTROLTGJRN4495-75-83 10:37:0031.3[facility] HermannHEMATOLOGY 2020-08-29 10:37:0018.2[facility] FggzoxvAAOVONLXYT6027-57-97 10:37:67313Yuxrcyjx GygakgzDDOIXUWBZI5265-96-56 10:37:007.5[facility] HqqqbelROZUDWVPJL1478-12-12 10:37:00 Test Item Value Reference Range Interpretation Comments PT (test code = PT) 12.8 s 12.0-14.7 Memorial RxlxfnqCNOBNJDMMR3450-75-59 10:37:00 Test Item Value Reference Range Interpretation Comments INR (test code = INR) 0.97 1 0.85-1.17 Memorial BbyghvbWNVGKICNKO2366-22-69 10:37:00 Test Item Value Reference Range Interpretation Comments PTT (test code = PTT) 25.0 s 22.9-35.8 [facility] OwerydeUXQVVNDBRE9236-19-15 10:37:0070.5[facility] HermannHEMATOLOGY 2020-08-29 10:37:0018.8[facility] WtacwtwEKHXZEXIOY5800-87-26 10:37:009.5[facility] VhgqrioOBXPGASEGM9445-46-80 10:37:000.9[facility] NtlvikoGPXVWMRZDM7368-90-06 10:37:000.3[facility] YceszcdKACSDISIFP7609-29-76 10:37:004.8[facility] UBSYLJPQKU6132-93-50 10:37:001.3[facility] TlyypuvQUARCGXFDH5443-04-90 10:37:000.6 Memorial BkqtmkxODXZQCVNGL8845-41-60 10:37:000.1[facility] HermannHEMATOLOGY 2020-08-29 10:37:001+ *ABN*(08/29/20 5:37 AM)[facility] SvmrstcCACBXGWLZX4241-14-70 10:37:00Not Detected (08/29/20 5:37 AM)[facility]annBLOOD BANK RESULTS 2020-08-29 10:37:00Negative (08/29/20 5:37 AM)[facility] HermannCHEM WVVQA2060-15-64 10:37:05846Lhwuevkf HermannCHEM CZFOS7786-29-23 10:37:0028[facility] HermannCHEM ADXVM0581-10-91 10:37:001.01[facility] HermannCHEM YKIBV5440-26-37 10:37:09383 [facility] HermannCHEM QKKVQ4152-47-23 10:37:003.8[facility] HermannCHEM PANEL 2020-08-29 10:37:55222Ogkzfywp HermannCHEM YNDJE2755-61-24 10:37:0028[facility] HermannCHEM VZCXZ3437-58-21 10:37:009.8[facility] HermannCHEM XFEKB9101-46-84 10:37:0011.8[facility] HermannCHEM IOBEB4839-61-09 10:37:0059[facility] HermannCHEM IHUOU7350-04-74 10:37:002.9[facility] GvtvjpzEBTAYBSGHD9737-16-39 10:37:006.8 Memorial EkadjosYMHOKUHCGQ1620-53-79 10:37:004.47[facility] HermannHEMATOLOGY 2020-08-29 10:37:0010.6[facility] TfkfftaRJNAOWJQEN6478-21-73 10:37:0034.0[facility] IccmndvKTYXREPQYY6423-65-27 10:37:0076.1[facility] YzcojptZRPBIBQHTO4881-33-78 10:37:00 Test Item Value Reference Range Interpretation Comments MCH (test code = MCH) 23.8 pg 27.0-31.0 [facility] ZmgdkchZMMBVCAMDA9886-96-30 10:37:0031.3[facility] HermannHEMATOLOGY 2020-08-29 10:37:0018.2[facility] KbjefdeUACYZYTMGS5822-83-92 10:37:35169Xnmchvys BhbpyomTYLLSBCRFK5915-93-84 10:37:007.5[facility] PvdfnygCSAUJBUKKR7806-77-50 10:37:00 Test Item Value Reference Range Interpretation Comments PT (test code = PT) 12.8 s 12.0-14.7 [facility] EsqjdkfLTKQHKDVRG5455-29-10 10:37:00 Test Item Value Reference Range Interpretation Comments INR (test code = INR) 0.97 1 0.85-1.17 [facility] JzjrmamCMUNKMKKIT8424-09-77 10:37:00 Test Item Value Reference Range Interpretation Comments PTT (test code = PTT) 25.0 s 22.9-35.8 [facility] YjvlgogOSYSEAEZOG5012-62-81 10:37:0070.5[facility] HermannHEMATOLOGY 2020-08-29 10:37:0018.8[facility] BcatalrHYKFTDYGER2987-09-73 10:37:009.5[facility] WyosyqoKZHDGGTUPK2207-96-56 10:37:000.9[facility] UbgcvuxDLBTOQOCYE5462-15-59 10:37:000.3[facility] XocqqgxRPAJDIYQGQ2903-81-80 10:37:004.8[facility] CUUQRJEIHH1967-61-45 10:37:001.3[facility] PejsfcuZCGPUHYGKJ1020-95-57 10:37:000.6 [facility] RojftjpQLGFEQCJTO2085-51-99 10:37:000.1[facility]annHEMATOLOGY 2020-08-29 10:37:001+ *ABN*(08/29/20 5:37 AM)[facility] CqpgdtiLHLJKRGMCF9986-82-47 10:37:00Not Detected (08/29/20 5:37 AM)[facility] RESULTS 2020-08-29 10:37:00Negative (08/29/20 5:37 AM)[facility]annCHEM YEPSN8814-47-81 10:37:68192Laxmjqpi HermannCHEM AVXXJ8785-35-47 10:37:0028[facility]annCHEM SJRRF3839-95-47 10:37:001.01[facility] HermannCHEM QAAJD0007-44-27 10:37:07454 [facility]annCHEM BJWRW4293-38-31 10:37:003.8[facility] HermannCHEM PANEL 2020-08-29 10:37:53704Wngshbag HermannCHEM VGVOH0958-67-67 10:37:0028[facility] HermannCHEM ZUCUH7821-41-94 10:37:009.8[facility] HermannCHEM PFMUE8379-09-43 10:37:0011.8[facility]annCHEM GYAEW7946-29-70 10:37:0059[facility]annCHEM TJPPX9195-40-39 10:37:002.9[facility] HxurrxpEUYXHFTHCY9697-57-15 10:37:006.8 [facility] UhbynhgHNDEDUGFUV8449-38-11 10:37:004.47[facility]annHEMATOLOGY 2020-08-29 10:37:0010.6[facility] DqqczcnSOYJPZCEYZ1386-56-05 10:37:0034.0[facility] RguwtzyFAMOCCVXPV3444-00-46 10:37:0076.1[facility] YbbjlnvNAROVTLJBI6723-22-17 10:37:00 Test Item Value Reference Range Interpretation Comments MCH (test code = MCH) 23.8 pg 27.0-31.0 [facility] QcxvckjAUIYIRPBEP9615-51-57 10:37:0031.3[facility]annHEMATOLOGY 2020-08-29 10:37:0018.2[facility] EthkcebMGEFGLFXHC5544-10-06 10:37:95989Czhmpsye PwvkpkgZLUHKCKLXO8353-10-80 10:37:007.5[facility] PtqjmhxJBZCXZKABH2534-15-13 10:37:00 Test Item Value Reference Range Interpretation Comments PT (test code = PT) 12.8 s 12.0-14.7 [facility] BnufzvfFLLMKDIMRN4411-62-33 10:37:00 Test Item Value Reference Range Interpretation Comments INR (test code = INR) 0.97 1 0.85-1.17 [facility] KpybnukSUSDAHSXDS8158-04-68 10:37:00 Test Item Value Reference Range Interpretation Comments PTT (test code = PTT) 25.0 s 22.9-35.8 [facility] HllzktlRBOZAZGQTY0275-10-01 10:37:0070.5[facility]annHEMATOLOGY 2020-08-29 10:37:0018.8[facility] UqayyizKCMWZRWSGC5636-36-94 10:37:009.5[facility] NdxrodlEBGKPHHZQX9781-16-44 10:37:000.9[facility] BashzojOYNSAVJJVC6341-88-48 10:37:000.3[facility] EbvlbagTXEQHQSKNA4858-14-86 10:37:004.8[facility] WRYSEBBGDN1754-63-12 10:37:001.3[facility] TqxtansQMYBSFDEWW2119-58-28 10:37:000.6 [facility] WrbukljASMUALQTPO6744-32-87 10:37:000.1[facility]annHEMATOLOGY 2020-08-29 10:37:001+ *ABN*(08/29/20 5:37 AM)[facility] OxmzopdOOEOYGXXHE4574-10-64 10:37:00Not Detected (08/29/20 5:37 AM)[facility] RESULTS 2020-08-29 10:37:00Negative (08/29/20 5:37 AM)[facility]annCHEM QBNBU8756-19-56 10:37:98032Numdphsx HermannCHEM INFLZ7507-70-90 10:37:0028[facility]annCHEM AWSKU7998-35-45 10:37:001.01[facility]annCHE[facility] ITTZW2297-21-89 10:37:10382 [facility] UDYHD2958-51-06 10:37:003.8[facility]annCHEM PANEL 2020-08-29 10:37:46261Ertybkpw HermannCHEM LVTZH3796-35-88 10:37:0028[facility]annCHE[facility] AWWCA3781-16-87 10:37:009.8[facility]annCHE[facility] JINOY1468-56-33 10:37:0011.8[facility]annCHE[facility] XPAGQ9396-93-91 10:37:0059[facility]annCHEM WYLBI9174-23-40 10:37:002.9[facility] NzcwzrqUKCCKBNCGA0952-53-66 10:37:006.8 [facility] KkxnmpdXHLSCHKNLQ1610-06-05 10:37:004.47[facility]annHEMATOLOGY 2020-08-29 10:37:0010.6[facility] LliszpyVLEWNGBXJK0956-64-52 10:37:0034.0[facility] TzirkzeIULZWWQHWD0278-93-33 10:37:0076.1[facility] VseddckTXJETRHNOQ4818-97-42 10:37:00 Test Item Value Reference Range Interpretation Comments MCH (test code = MCH) 23.8 pg 27.0-31.0 [facility] MyzmdkpPKYYJWLPTI0223-90-39 10:37:0031.3[facility]annHEMATOLOGY 2020-08-29 10:37:0018.2[facility] HpssgkaIFPGTLEPWQ4376-33-48 10:37:08599Hyvtucio YeszcbbIYLBKREMLC3166-88-37 10:37:007.5[facility] EuvuinxHWNOAAYFVT4723-44-29 10:37:00 Test Item Value Reference Range Interpretation Comments PT (test code = PT) 12.8 s 12.0-14.7 [facility] XqwlzmjFDDRKGKENF0147-91-87 10:37:00 Test Item Value Reference Range Interpretation Comments INR (test code = INR) 0.97 1 0.85-1.17 [facility] IvmcedaZHSOOZMCUF3759-09-29 10:37:00 Test Item Value Reference Range Interpretation Comments PTT (test code = PTT) 25.0 s 22.9-35.8 [facility] BzomztfEXNHILVUBM6366-14-15 10:37:0070.5[facility]annHEMATOLOGY 2020-08-29 10:37:0018.8[facility] BblfvxbUCLAOVSVJW6876-95-72 10:37:009.5[facility] MdpnevoUADOMTSCDR0467-04-78 10:37:000.9[facility] RnxlbnkWPGQNSLLEB9263-92-99 10:37:000.3[facility] EqbhaxyIPXABVUXGB6209-77-90 10:37:004.8[facility] SWCRFOMTQE6766-33-45 10:37:001.3[facility] EfjokejWQQVFWKKOQ3045-47-18 10:37:000.6 [facility] GchcespROKVRORITD6314-74-55 10:37:000.1[facility]annHEMATOLOGY 2020-08-29 10:37:001+ *ABN*(08/29/20 5:37 AM)[facility] JgvudbhKQQHLKCUYR1559-89-78 10:37:00Not Detected (08/29/20 5:37 AM)[facility]annBL[facility]OD BANK RESULTS 2020-08-29 10:37:00Negative (08/29/20 5:37 AM)[facility]annCHEM JUJUM1976-61-35 10:37:15023Wfnxzwxd HermannCHEM CBISD5086-39-89 10:37:0028[facility]annCHEM LEAIG4187-61-39 10:37:001.01[facility]annCHEM XSVVJ5513-06-24 10:37:62630 [facility]annCHE[facility] FAQPE4692-73-27 10:37:003.8[facility] HermannCHEM PANEL 2020-08-29 10:37:16071Ufmwgdrt HermannCHEM KIYYJ3918-32-38 10:37:0028[facility]annCHEM MYURC2692-61-99 10:37:009.8[facility]annCHEM RVPWB5877-75-51 10:37:0011.8[facility] HermannCHEM FSYPE0807-20-45 10:37:0059[facility]annCHEM SYFYC3719-90-67 10:37:002.9[facility] ZnyqujnPGHPVNBLKK2312-31-60 10:37:006.8 [facility] YuddmugUKTMPARTPK5237-68-81 10:37:004.47[facility]annHEMATOLOGY 2020-08-29 10:37:0010.6[facility] IhheoqoSLRZUKITGQ6212-60-24 10:37:0034.0[facility] BtsdeehJYRZJQXTBA5521-96-62 10:37:0076.1[facility] LtwtqhiLRCMBHISJI5118-95-38 10:37:00 Test Item Value Reference Range Interpretation Comments MCH (test code = MCH) 23.8 pg 27.0-31.0 [facility] RivvfsbCPYDGJCNDH2202-99-86 10:37:0031.3[facility] HermannHEMATOLOGY 2020-08-29 10:37:0018.2[facility] FkeizpnGOVLEMFOYQ3112-13-09 10:37:05246Oatqgzcd ZznttsmCLKOLPZKAO3964-12-76 10:37:007.5[facility] ZwrrpbvOFMOQGRPUR6286-95-78 10:37:00 Test Item Value Reference Range Interpretation Comments PT (test code = PT) 12.8 s 12.0-14.7 [facility] XetvwgjPSEQXDDESN5007-91-24 10:37:00 Test Item Value Reference Range Interpretation Comments INR (test code = INR) 0.97 1 0.85-1.17 [facility] DncxexsZSEVLUNFIR8871-30-90 10:37:00 Test Item Value Reference Range Interpretation Comments PTT (test code = PTT) 25.0 s 22.9-35.8 [facility] YokicndWXWBYJURDM6815-16-24 10:37:0070.5[facility]annHEMATOLOGY 2020-08-29 10:37:0018.8[facility] SulgodaTIWCCZGBJI5697-37-51 10:37:009.5[facility] WlnofgjLNULAUJILZ3262-52-27 10:37:000.9[facility] AkgydgvTQOFDZCHBB4764-07-11 10:37:000.3[facility] VelozcoDMQFHFUTKP1122-22-22 10:37:004.8[facility] TSWTFUOYPW9247-10-53 10:37:001.3[facility] ChixmimYGOJJCDWQV6823-16-14 10:37:000.6 [facility] RvbjjqrMJIBSBJNLL5138-55-95 10:37:000.1[facility] HermannHEMATOLOGY 2020-08-29 10:37:001+ *ABN*(08/29/20 5:37 AM)[facility] IujqzaqMYKIXVMCEB3441-87-73 10:37:00Not Detected (08/29/20 5:37 AM)[facility]annBLOOD BANK RESULTS 2020-08-29 10:37:00Negative (08/29/20 5:37 AM)[facility]annCHEM OSUAV0463-02-74 10:37:27834Xsnrgafp HermannCHEM DFUSC6052-36-13 10:37:0028[facility]annCHEM SUCYS3025-10-83 10:37:001.01[facility]annCHEM RVIKT3204-54-92 10:37:24423 [facility]annCHE[facility] OUSZN9577-80-12 10:37:003.8[facility] HermannCHEM PANEL 2020-08-29 10:37:19851Brirugvp HermannCHEM VRDIM3452-93-42 10:37:0028[facility]annCHEM XGQQD9578-46-55 10:37:009.8[facility] HermannCHEM ISFWG1184-37-12 10:37:0011.8[facility] HermannCHEM WSHXN7248-66-23 10:37:0059[facility]annCHEM CSCYC8118-61-15 10:37:002.9[facility] BjwsxizAKMBTTCIDO7785-99-63 10:37:006.8 [facility] EangsexBYXIZQZMRV0805-60-31 10:37:004.47[facility] HermannHEMATOLOGY 2020-08-29 10:37:0010.6[facility] WtrkctoVANJYLWIPI1279-96-83 10:37:0034.0[facility] TjcoagnQSKPRTAVQX9230-86-17 10:37:0076.1[facility] LfkfqvfTJQNTBEZTQ3807-00-51 10:37:00 Test Item Value Reference Range Interpretation Comments MCH (test code = MCH) 23.8 pg 27.0-31.0 [facility] AixxrthORLCQVMLZM3536-90-12 10:37:0031.3[facility] HermannHEMATOLOGY 2020-08-29 10:37:0018.2[facility] MpmtrruKMCIDSPOFA4221-09-64 10:37:73486Haspyohz XzgqoieCKGNATSKLC6493-06-08 10:37:007.5[facility] VskikqgPKDGCCAHPE0192-24-46 10:37:00 Test Item Value Reference Range Interpretation Comments PT (test code = PT) 12.8 s 12.0-14.7 [facility] RkqwaoqOVSHTWMSTM4690-62-02 10:37:00 Test Item Value Reference Range Interpretation Comments INR (test code = INR) 0.97 1 0.85-1.17 [facility] YnuopsxPYQXOMBDMR5894-25-41 10:37:00 Test Item Value Reference Range Interpretation Comments PTT (test code = PTT) 25.0 s 22.9-35.8 [facility] WssrmhyHTBTITNYFB3378-65-37 10:37:0070.5[facility] HermannHEMATOLOGY 2020-08-29 10:37:0018.8[facility] FxappbbNKCLJTEMEG3504-96-37 10:37:009.5[facility] YxpxnerZLMYWLKYPQ0650-39-00 10:37:000.9[facility] GydaipsAIAEEVKRZP8316-39-17 10:37:000.3[facility] AfpvbfqEPRALXFSLG4505-16-15 10:37:004.8[facility] JUZNKHCUBN6817-61-84 10:37:001.3[facility] RrnsrwsCMMKHFTGCG7173-41-94 10:37:000.6 [facility] PswbdhdUMEGKMBIVC1948-15-64 10:37:000.1[facility]annHEMATOLOGY 2020-08-29 10:37:001+ *ABN*(08/29/20 5:37 AM)[facility] XcouxbvTUWEFSXVTT7446-17-70 10:37:00Not Detected (08/29/20 5:37 AM)[facility] HermannBLOOD BANK RESULTS 2020-08-29 10:37:00Negative (08/29/20 5:37 AM)[facility]annCHEM NFOHI8926-34-45 10:37:04651Oybqkkfq HermannCHEM YEKOJ9182-51-45 10:37:0028[facility] HermannCHEM NIHNW7806-43-67 10:37:001.01[facility]annCHEM TMCJC7653-82-37 10:37:89954 [facility]annCHE[facility] VJIZN0149-97-00 10:37:003.8[facility] HermannCHEM PANEL 2020-08-29 10:37:07480Gmdtedzg HermannCHEM AUXZB9394-95-59 10:37:0028[facility] HermannCHEM OYVIN0151-79-86 10:37:009.8[facility] HermannCHEM LWGKK3987-09-08 10:37:0011.8[facility]annCHEM RMLUX0233-06-89 10:37:0059[facility]annCHEM HFQYR5887-81-74 10:37:002.9[facility] BmxizajWYNBCBCOZP5477-71-63 10:37:006.8 [facility] SemyaegNKSROMYFPE5479-70-70 10:37:004.47[facility] HermannHEMATOLOGY 2020-08-29 10:37:0010.6[facility] QntrunsUYGZPJYIQC1887-59-07 10:37:0034.0[facility] UluiqaoHLPDJSPAGY0808-36-56 10:37:0076.1[facility] CvrrhvpOQNFKGESQT1966-55-21 10:37:00 Test Item Value Reference Range Interpretation Comments MCH (test code = MCH) 23.8 pg 27.0-31.0 [facility] RaocxvzVUOHVGMMYA0632-24-61 10:37:0031.3[facility]annHEMATOLOGY 2020-08-29 10:37:0018.2[facility] XbdqnktDTSALODWRZ9092-97-66 10:37:92941Mhysrfqj RhnregxMEIWMQYFXN6759-09-31 10:37:007.5[facility] EcbqhvnEOPRWJHLGL7381-19-23 10:37:00 Test Item Value Reference Range Interpretation Comments PT (test code = PT) 12.8 s 12.0-14.7 [facility] IzeooatFQNNGVKMCC2247-00-71 10:37:00 Test Item Value Reference Range Interpretation Comments INR (test code = INR) 0.97 1 0.85-1.17 [facility] IwpifkyIVRIBKYUQM3056-74-81 10:37:00 Test Item Value Reference Range Interpretation Comments PTT (test code = PTT) 25.0 s 22.9-35.8 [facility] AtkshxxUZHGQDFHQT9360-51-44 10:37:0070.5[facility]annHEMATOLOGY 2020-08-29 10:37:0018.8[facility] XueiflcGPLTHFSLDX8905-17-21 10:37:009.5[facility] VfggelyUEIAGXMOTJ2394-25-62 10:37:000.9[facility] BwmcupsIIJPQTVGIN8346-53-35 10:37:000.3[facility] ZarbbevVMTPXMUSIR2733-43-67 10:37:004.8[facility] CBUTCNPFNK4311-99-71 10:37:001.3[facility] FstygtwEDYTYYZJZW2021-10-66 10:37:000.6 [facility] NtmeztaCAIXPIHYEL1022-60-76 10:37:000.1[facility] HermannHEMATOLOGY 2020-08-29 10:37:001+ *ABN*(08/29/20 5:37 AM)[facility]icgwoQDXQLQFMCK2008-92-88 10:37:00Not Detected (08/29/20 5:37 AM)[facility], GC, TV,PCR, IN UEQZD8976-60-31 15:38:00 Test Item Value Reference Range Interpretation Comments FT (test code = CHTR) Not detected (qualifier Not Detected N value) FT (test code = Not detected (qualifier Not Detected N NGONO) value) FT (test code = TRVG) Not detected (qualifier Not Detected N value) [facility] JFCKLGQYOCP9785-28-71 10:57:00 Test Item Value Reference Range Interpretation Comments Color (test code = UCOLR) Dk. Yellow Clarity (test code = UCLAR) Hazy Glucose (test code = UGLUC) NEGATIVE NEGATIVE N Bilirubin (test code = UBILI) NEGATIVE NEGATIVE N Ketones (test code = UKET) NEGATIVE NEGATIVE N Specific [place] (test code = 1.025 1.005-1.030 A USPGR) [...] = None Seen None Seen N URCRYS) [facility] Notes Date/Time Note Provider Source 2021-08-05 14:08:00-00:00 [id number] [place] [address] PATIENT NAME: MARJAN FLEMING ADMIT DATE: 08/05/21 ACCOUNT NO: [id number] ROOM NO: AGE: 66 REPORT TYPE: eTRANSESOPHAGEAL ECHO REPORT SEX: F ADMITTING PHYSICIAN: ATTENDING PHYSICIAN:Mike Lund MD *[place] [address] Transesophageal Echocardiogram Patient: Marjan Fleming Study Date: 08/05/2021 BP: 158 / 92 Location: [facility] URN: [id number] : 1955 Age: 66 Height: / Gender: F Weight: / BMI/BSA: / *Ordering Physician: * Mike Lund *Interpreting Physician: * Ashely Mckeon MD *Surveillance Supervisor: * Odessa Interiano Indications: POST WATCHMAN. Study [...] benzocaine spray. A transesophageal probe (SN: [id number]) was inserted by the attending material specialist without difficulty. L ocation: CV PREP. Patient [...] benzocaine spray. A transeso phageal probe (SN: [id number]) was inserted by the attending cardiolog ist [...] PATIENT NAME: MARJAN FLEMING 1 2021-06-24 11:18:00-00:00 [id number] [place] [address] PATIENT NAME: MARJAN FLEMING ADMIT DATE: 06/17/21 ACCOUNT NO: [id number] ROOM NO: ADDIS AGE: 66 REPORT TYPE: eTRANSESOPHAGEAL ECHO REPORT SEX: F ADMITTING PHYSICIAN:Mike Lund MD ATTENDING PHYSICIAN:Mike Lund MD *[place] [address] Transesophageal Echocardiogram for Watchman Patient: Marjan Fleming Study Date: 06/17/2021 BP: Location: [facility] URN: [id number] : 1955 Age: 66 Height: / [...] setup: The [facility] complex care in the fasting state.Intravenous access was obtained. Surface E CG leads, blood pressure measurements, and pulse oximetric signals were m onitored. Sedation. Sedation was administered by anesthesiology samreen rodas. Transesophageal echocardiography was performed. A transesophagea l probe was inserted by the anesthesiologist. Images were obtained using a [employer] cardiac ultrasound machine. Location: Catheterization laboratory. Christian woodruff completion: The patient tolerated the procedure well. There were no complications. Findings Conclusions Summary: PATIENT NAME: MARJAN FLEMING 7 1. Study data: Transesophageal Echocardiogram fo r Watchman. 2. Procedure narrative: Transesophageal echocard iography was performed. A transesophageal probe was inserted by the [facility] sthesiologist. Images were obtained using a GE [...] stable. Right groin suture removed by this SOFTWARE COMPUTER SPECIALIST. No infect ion, bleeding, or hematoma. Dermabond applied and intact. Patient was provided with post-Watchman discharg e instructions. Patient is to follow up with PCP and material specialist in 1 t o 2 weeks post discharge. Patient is to follow up with material specialist for th e 45-day WESLEY, and for anticoagulation recommendation. Prepared and electronically signed by Ashely Mckeon MD 06/24/2021 11:18 Electronically Signed by Mike Lund MD on at 1118 PATIENT NAME: MARJAN FLEMING 7 2021-06-17 18:10:00-00:00 [id number] [place] [address] PATIENT NAME: MARJAN FLEMING ADMIT DATE: 06/17/21 ACCOUNT NO: [id number] ROOM NO: [facility] AGE: 66 REPORT TYPE: eECHOCARDIOGRAM REPORT SEX: F ADMITTING PHYSICIAN:Mike Lund MD ATTENDING PHYSICIAN:Mike Lund MD *[facility]* [address] [place] [address]. [place] [address] Limited Transthoracic Echocardiogram Patient: Marjan Fleming Study Date: 06/17/2021 BP: 117 / 82 Location: [facility] URN: [id number] : 1955 Age: 66 Height: 64 in / 162.6 cm Gender: F Weight: 210 lb / 95.5 kg BMI/BSA: 36.1 kg/m 2 / 2.12 m 2 *Ordering Physician: * Bahman Chopra *Interpreting Physician: * Kevin Merino MD *Surveillance Supervisor: * Tiarra Loja Indications: Post Watchman/Rule out pericardial effusion. Study data: Transthoracic echocardiogram, limite d study. Procedure: Transthoracic echocardiography was performed. Im age quality was adequate. Limited 2D and limited spectral Dopple r. Location: [facility]. Patient status: Outpatient. Study status: [...] NAME: MARJAN FLEMING 7 2021-06-17 11:12:00-00:00 [facility]) Discharge Summary REPORT#:[id number] REPORT STATUS: Signed DATE:06/17/21 TIME: 1112 PATIENT: MARJAN FLEMING UNIT #: [id number] ROOM/BED: [place] [address] : [birth year] AGE: 67 SEX: F ATTEND: René Lund MD ADM AUTHOR: Bahman Chopra * ALL edits or amendments must be made on the el [employer]/computer document * PCP PCP Discharge to: home [...] stable. Right groin suture removed by this SOFTWARE COMPUTER SPECIALIST. No infect ion, bleeding, or hematoma. Dermabond applied and intact. Patient was provided with post-Watchman [place] e instructions. Patient is to follow up with PCP and material specialist in 1 to 2 we eks post discharge. Patient is to follow up with material specialist for th e 45-day WESLEY, and for [...] breath, lightheadedness, or dizzi ness to the material specialist. Dispo: It is medically necessary that patients [...] distress GI: soft, non-tender Extremities: moves all Neuro/DIVISION SERGEANT: alert, oriented X 3 Skin: dry Wound/incision: Location: Right groin suture removed by this SOFTWARE COMPUTER SPECIALIST. No infect ion, bleeding, or hematoma. [...] Lund MD on 07/14 at 0946 RPT #:[id number] END OF REPORT 2021-06-17 09:43:00-00:00 [id number] [place] [address] PATIENT NAME: MARJAN FLEMING ADMIT DATE: 06/17/21 ACCOUNT NO: [id number] ROOM NO: ADDIS AGE: 66 REPORT TYPE: eELECTROCARDIOGRAM REPORT SEX: F ADMITTING PHYSICIAN:Mike Lund MD ATTENDING PHYSICIAN:Mike Lund MD Order: [id number] Test Reason : S/P WATCHMAN Test Date/Time [...] Mike Lund Confirmed by:ARMANDO RICHARDS MD at 1802 PATIENT NAME: MARJAN FLEMING 48 2021-06-17 08:54:00-00:00 [id number] [place] [address] PATIENT NAME: MARJAN FLEMING ADMIT DATE: 06/17/21 ACCOUNT NO: [id number] ROOM NO: ADDIS AGE: 66 REPORT TYPE: CARDIAC CATHETERIZATION REPORT SEX: F ADMITTING PHYSICIAN:Mike Lund MD ATTENDING PHYSICIAN:Mike Lund MD PROCEDURE DATE: 06/17/2021 PROCEDURE PERFORMED: Left atrial appendage closu re using a 24 mm Watchman FLX closure device. ACCESS: Right femoral vein, 16-Maltese closed wit h acsriq-qt-wkupx suture. CHARGE NURSE: Mike Lund MD. SECONDARY WASHING TUB OPERATOR: Kevin Merino MD. COMPLICATIONS: None. BLEEDING: [...] I accessed right femo ral vein, placed 8-Maltese [place] sheath. Subsequently, upgraded to 16-Maltese sheath and gave a partial dose of heparin, then took the SL1 sheat h into the SVC over a wire with Smoot needle inside, descended under the fluor oscopy [...] I removed the Watchman sheath and the 16-Maltese sheath and placed mbuurv-jy-otpss suture for hemostasis, then achieved a good hemo stasis. CONCLUSION: Left atrial appendage closure using a 24 mm Watchman FLX closure PATIENT NAME: MARJAN FLEMING 7 device. Dictated By: Mike Lund MD WT: CATH:GAYLE/RIKY/ALLA Conf#: [id number]/DID#: [id number] Authenticated by Mike Lund MD On 07/01/2021 12:30:01 PM Electronically Signed by Mike Lund MD on at 1230 PATIENT NAME: MARJAN FLEMING 48 2021-06-16 10:36:00-00:00 [id number] [place] [address] PATIENT NAME: MARJAN FLEMING ADMIT DATE: ACCOUNT NO: [id number] ROOM NO: AGE: 66 REPORT TYPE: eELECTROCARDIOGRAM REPORT SEX: F ADMITTING PHYSICIAN: ATTENDING PHYSICIAN:Mike Lund MD Order: [id number] Test Reason : PREOP Test Date/Time Stamp: [...]
[2023-01-05] MEDS ORDERED: PROMETHAZINE INJ 25 MG/ML AMP ONE (11:04)
[2023-01-05] MEDS ORDERED: HYDRALAZINE HCL 25 MG TABLET ONE (11:05)
[2023-01-05] MEDS ORDERED: Magnesium Sulfate 2gm IVPB 2 G/50 ML BAG IV ONE (11:05)
[2023-01-05] MEDS ORDERED: KETOROLAC 30 MG/ML INJ ONE ×2 (11:05→12:00)
[2023-01-05] MEDS ORDERED: DIPHENHYDRAMINE 50 MG/ML VIAL ONE (11:05)
[2023-01-05 11:08] LABS: Hematocrit 33.6 % (36.0-45.0); MCV 81.4 fL (80-100); RBC Red Blood Cell Count 4.13 M/uL (3.86-4.86)
[2023-01-05 11:09] LABS: MPV 7.5 fL (7.6-11.3); Platelets 91 thou/uL (152-406)
[2023-01-05 11:29] LABS: Albumin 3.5 g/dL (3.4-5.0); Bilirubin Total 0.5 mg/dL (0.2-1.0); Potassium 3.2 mEq/L (3.5-5.1); Protein, Total 7.1 g/dL (6.4-8.2); Troponin High Sensitivity 18.1 pg/mL (<58.9)
--- NOTE | 2023-01-05 11:47 | ER ---
Nurse's Notes [facility] Name: Marjan Kolb Age: 67 yrs Sex: Female : 1955 Arrival Date: 01/05/2023 Time: 10:22 Bed 7 Private MD: Diagnosis: Headache Presentation: 01/05 10:34 Chief complaint: EMS states: HEADACHE, SAME S/S MX PREVIOUS VISITS. Coronavirus mb9 screen: At this time, the client does not indicate any symptoms associated with coronavirus-19. Ebola Screen: No symptoms or risks identified at this time. Initial Sepsis Screen: Does the patient meet any 2 criteria? No. Patient's initial sepsis screen is negative. Does the patient have a suspected source of infection? No. Patient's initial sepsis screen is negative. Risk Assessment: Do you want to hurt yourself or someone else? Patient reports no desire to harm self or others. Onset of symptoms is unknown. 10:34 Method Of Arrival: EMS: [facility] mb9 10:34 Acuity: BLAYNE 3 mb9 Triage Assessment: 10:50 Headache History: The patient has had previous headaches and this one is similar to ap3 previous episodes. General: Appears in no apparent distress. distressed, comfortable. Pain: Complains of pain in head and low back Pain Pain began gradually. Respiratory: the patient has mild shortness of breath. Respiratory: Onset: The symptoms/episode began/occurred . 10:51 General: Behavior is calm, cooperative, appropriate for age. Pain: Also complains of no ap3 other associated symptoms. Respiratory: Airway is patent Respiratory effort is even, unlabored, Respiratory pattern is regular, symmetrical. Historical: - Allergies: 10:35 Azithromycin; mb9 10:35 Bactrim; mb9 10:35 butorphanol; mb9 10:35 Fentanyl; mb9 10:35 Reglan; mb9 10:35 Sulfa (Sulfonamide Antibiotics); mb9 10:35 TRIMETHOPRIM; mb9 - PMHx: 10:35 angina pectoris; Anxiety; Atrial fibrillation; Bipolar disorder; esophageal varicies; mb9 Hepatitis; HIV positive; Hypertensive disorder; Migraine; panic attack; - Immunization history:: Adult Immunizations up to date. - Social history:: Smoking status: Patient reports the use of cigarette tobacco products, unknown amount. - Family history:: not pertinent. Screenin:50 Abuse screen: Denies threats or abuse. Nutritional screening: No deficits noted. ap3 Tuberculosis screening: No symptoms or risk factors identified. Assessment: 10:49 General: Appears in no apparent distress. Behavior is calm, cooperative, appropriate ap3 for age. Pain: Complains of pain in head, low back. Neuro: Level of Consciousness is awake, alert, obeys commands, Oriented to person, place, time, situation, Reports headache. Cardiovascular: Patient's skin is warm and dry. Respiratory: Airway is patent Respiratory effort is even, unlabored. Vital Signs: 10:35 BP 202 / 106; Pulse 64; Resp 19; Temp 98; Pulse Ox 98% ; mb9 10:43 BP 197 / ???; Pulse 114; Resp 18; Pulse Ox 98% on R/A; ap3 12:25 BP 163 / 104; Pulse 98; Resp 16; Pulse Ox 100% on R/A; mb9 ED Course: 10:25 Patient arrived in ED. ts1 10:33 Howard Samaniego MD is Attending Physician. rt 10:34 Triage completed. mb9 10:35 Arm band placed on. mb9 10:43 Danielle Arango, RN is Primary Nurse. ap3 10:50 Patient has correct armband on for positive identification. Bed in low position. Call ap3 light in reach. Side rails up X 1. hall monitor on. Pulse ox on. NIBP on. 10:55 Inserted saline lock: 20 gauge in right antecubital area, using aseptic technique. nj1 ,using aseptic technique. Ultrasound guided. Catheter tip well visualized within vasculature during placement. Blood collected. 11:42 ED physician to see patient. ap3 11:42 EKG done, by ED staff, reviewed by Howard Samaniego MD. ap3 11:46 Haim Lehman MD is Referral Physician. rt 12:25 IV discontinued, intact, bleeding controlled, No redness/swelling at site. Pressure mb9 dressing applied. Administered Medications: 11:06 Drug: HydrALAZINE PO 50 mg Route: PO; ap3 11:06 Drug: Promethazine IVP 12.5 mg Route: IVP; Site: right antecubital; ap3 11:06 Drug: diphenhydrAMINE IVP 25 mg Route: IVP; Site: right antecubital; ap3 11:06 Drug: Ketorolac IVP 15 mg Route: IVP; Site: right antecubital; ap3 11:06 Drug: Magnesium Sulfate IVPB 2 grams Route: IVPB; Infused Over: 1 hrs; Site: right ap3 antecubital; 11:53 Drug: Ketorolac IVP 15 mg Route: IVP; Site: right antecubital; ap3 11:53 Drug: Acetaminophen PO 1000 mg Route: PO; ap3 Outcome: 11:47 Discharge ordered by . rt 12:25 Discharged to home ambulatory. mb9 12:25 Condition: stable 12:25 Discharge instructions given to patient, Instructed on discharge instructions, follow up and referral plans. Demonstrated understanding of instructions, follow-up care. 12:26 Patient left the ED. mb9 Signatures: Danielle Arango RN RN ap3 Jessie Cristina RN RN mb9 Howard Samaniego MD MD rt Aracely Sims RN RN nj1 Abena Rasheed PAS PAS ts1
--- NOTE | 2023-01-05 11:47 | EDPHYS ---
Physician Documentation [facility] Name: Marjan Kolb Age: 67 yrs Sex: Female : 1955 Arrival Date: 01/05/2023 Time: 10:22 Bed 7 Private MD: ED Physician Howard Samaniego HPI: 01/05 10:45 This 67 yrs old Female presents to ER via EMS with complaints of Headache. rt 10:45 Patient presents to the ED with a headache. She has had similar headaches previously. rt This started this morning. She did take Tylenol to no relief. She denies other acute complaints at this time. Symptoms are moderate severity, aching in nature, nonradiating, no other aggravating or alleviating factors.. Historical: - Allergies: 10:35 Azithromycin; mb9 10:35 Bactrim; mb9 10:35 butorphanol; mb9 10:35 Fentanyl; mb9 10:35 Reglan; mb9 10:35 Sulfa (Sulfonamide Antibiotics); mb9 10:35 TRIMETHOPRIM; mb9 - PMHx: 10:35 angina pectoris; Anxiety; Atrial fibrillation; Bipolar disorder; esophageal varicies; mb9 Hepatitis; HIV positive; Hypertensive disorder; Migraine; panic attack; - Immunization history:: Adult Immunizations up to date. - Social history:: Smoking status: Patient reports the use of cigarette tobacco products, unknown amount. - Family history:: not pertinent. ROS: 10:45 Constitutional: Negative for fever, chills, and weight loss, Neck: Negative for injury, rt pain, and swelling, Cardiovascular: Negative for chest pain, palpitations, and edema, Respiratory: Negative for shortness of breath, cough, wheezing, and pleuritic chest pain, Abdomen/GI: Negative for abdominal pain, nausea, vomiting, diarrhea, and constipation, MS/Extremity: Negative for injury and deformity, Skin: Negative for injury, rash, and discoloration. 10:45 Neuro: Positive for headache, Negative for altered mental status. Exam: 10:45 Constitutional: This is a well developed, well nourished patient who is awake, alert, rt and in no acute distress. Head/Face: Normocephalic, atraumatic. Chest/axilla: Normal chest wall appearance and motion. Nontender with no deformity. No lesions are appreciated. Cardiovascular: Regular rate and rhythm with a normal S1 and S2. No gallops, murmurs, or rubs. Normal PMI, no JVD. No pulse deficits. Respiratory: Lungs have equal breath sounds bilaterally, clear to auscultation and percussion. No rales, rhonchi or wheezes noted. No increased work of breathing, no retractions or nasal flaring. Abdomen/GI: Soft, non-tender, with normal bowel sounds. No distension or tympany. No guarding or rebound. No evidence of tenderness throughout. Skin: Warm, dry with normal turgor. Normal color with no rashes, no lesions, and no evidence of cellulitis. Neuro: Awake and alert, GCS 15, oriented to person, place, time, and situation. Cranial nerves II-XII grossly intact. Motor strength 5/5 in all extremities. Sensory grossly intact. Cerebellar exam normal. Normal gait. Psych: Awake, alert, with orientation to person, place and time. Behavior, mood, and affect are within normal limits. 11:48 ECG was reviewed by the Attending Physician. rt Vital Signs: 10:35 BP 202 / 106; Pulse 64; Resp 19; Temp 98; Pulse Ox 98% ; mb9 10:43 BP 197 / ???; Pulse 114; Resp 18; Pulse Ox 98% on R/A; ap3 12:25 BP 163 / 104; Pulse 98; Resp 16; Pulse Ox 100% on R/A; mb9 MDM: 10:41 Patient medically screened. rt 11:49 Differential diagnosis: Migraine headache, electrolyte disturbance, dysrhythmia. Data rt reviewed: vital signs, nurses notes, old medical records, lab test result(s), EKG. I considered the following discharge prescriptions or medication management in the emergency department Medications were administered in the Emergency Department. See MAR Patient request opiates, believe that opiates [place] harm patient the benefit, explained this at length with the patient. Instructed to follow-up with neurology and pain management for further management of chronic pain syndromes.. Test considered but Not performed: CT: Patient with multiple evaluations for similar headaches, negative neuroimaging this year, do not believe that further imaging is likely to benefit.. Care significantly affected by the following chronic conditions: A-fib, migraine headaches. Counseling: I had a detailed discussion with the patient and/or guardian regarding: the historical points, exam findings, and any diagnostic results supporting the discharge/admit diagnosis, the presence of at least one elevated blood pressure reading (>120/80) during this emergency department visit, lab results, the need for outpatient follow up. Response to treatment: the patient's symptoms have mildly improved after treatment. 01/05 10:44 Order name: CBC w/o diff; Complete Time: 12:02 rt 01/05 10:44 Order name: CMP; Complete Time: 11:32 rt 01/05 10:44 Order name: Troponin High Sensitivity; Complete Time: 11:32 rt 01/05 12:00 Order name: CBC Smear Scan; Complete Time: 12:02 EDMS 01/05 10:44 Order name: EKG; Complete Time: 10:45 rt 01/05 10:44 Order name: EKG - Nurse/Tech; Complete Time: 11:42 rt EC:48 Rate is 58 beats/min. Rhythm is regular, Normal Sinus Rhythm with No ectopy, LVH with rt repolarization abnormality. QRS [place] is Normal. QRS interval is normal. QT interval is normal. No Q waves. Administered Medications: 11:06 Drug: HydrALAZINE PO 50 mg Route: PO; ap3 11:06 Drug: Promethazine IVP 12.5 mg Route: IVP; Site: right antecubital; ap3 11:06 Drug: diphenhydrAMINE IVP 25 mg Route: IVP; Site: right antecubital; ap3 11:06 Drug: Ketorolac IVP 15 mg Route: IVP; Site: right antecubital; ap3 11:06 Drug: Magnesium Sulfate IVPB 2 grams Route: IVPB; Infused Over: 1 hrs; Site: right ap3 antecubital; 11:53 Drug: Ketorolac IVP 15 mg Route: IVP; Site: right antecubital; ap3 11:53 Drug: Acetaminophen PO 1000 mg Route: PO; ap3 Disposition Summary: 01/05/23 11:47 Discharge Ordered Location: Home rt Problem: an ongoing problem rt Symptoms: have improved rt Condition: Stable rt Diagnosis - Headache rt Followup: rt - With: Haim Lehman MD - When: 5 - 6 days - Reason: Discharge Instructions: - Discharge Summary Sheet rt - General Headache Without Cause rt - Analgesic Rebound Headache rt Forms: - Medication Reconciliation Form rt - Thank You Letter rt - Antibiotic Education rt - Prescription Opioid Use rt - Patient Portal Instructions rt - Leadership Thank You Letter rt Signatures: Dispatcher [employer] Danielle Delgadillo RN RN ap3 Jessie Cristina RN RN mb9 Howard Samaniego MD MD rt
[2023-01-05 12:00] LABS: Anisocytosis 1+; Blood Morphology Comment NOTED (NOT SEEN); Platelet Estimate DECR; White Blood Cell Scan OK (OK)
[2023-01-05] MEDS ORDERED: ACETAMINOPHEN 500 MG TAB ONE (12:00)
[2023-01-05 12:37] VITALS: TEMP 98
[2023-01-05 12:51] VITALS: BP 163/104; O2SAT 100
--- NOTE | 2023-01-06 17:31 | EKG ---
Test Date: 2023-01-05 Test Time: 11:36:29 Nursing Care Attendant: ALP MEASUREMENT RESULTS: Intervals: Rate: 58 [place]: QRSD: 96 QT: 468 QTc: 459 [place]: P: [place]: QRS: 59 T: -59 INTERPRETIVE STATEMENTS: Sinus rhythm Left ventricular hypertrophy with repolarization abnormality Abnormal ECG Electronically Signed On 01-06-23 17:28:17 CDT by Mike Lund
== END 2023-01-05 12:26 | disposition home or self-care (01) ==
LOC: ER 10:22
DX: R51.9 Headache, unspecified (principal); Z21 Asymptomatic human immunodeficiency virus [HIV] infection status; Z88.1 Allergy status to other antibiotic agents; Z88.2 Allergy status to sulfonamides; Z88.8 Allergy status to other drugs, medicaments and biological substances
CPT/HCPCS: 36415; 85027; 84484; 80053; J2550; J3475; J1200; 93005

== ENCOUNTER 2023-01-07 20:02 | Emergency (ER) | payer OTHER ==
[2023-01-07] MEDS ORDERED: ACETAMINOPHEN 500 MG TAB ONE (20:26)
--- OUTSIDE RECORDS SUMMARY | 2023-01-07 20:26 | XMS REPORT | Continuity of Care Document ---
:1955 Author Organization [facility] t Address [address] [place] [address] Care Team Providers Name Role Phone Urmila [...] Attending Clinician Unavailable Robbi Bal Attending Clinician [facility] Attending Clinician Unavailable Isaias Whiteside RN Attending Clinician Unavailable TOMY MARIE Attending Clinician Unavailable Reilly Means MD Attending Clinician Ofe Shields MD Attending Clinician Tomy Marie MD Attending Clinician Doctor Unassigned, Sundance Attending Clinician Unavailable Bill COLES Attending Clinician Unavailable Bill Rose Attending Clinician CHARITY MCALLISTER Attending Clinician Unavailable Charity Mcallister MD Attending Clinician GADIEL KOEHLER Attending Clinician Unavailable Mike Lund Attending Clinician Unavailable NIKOLAI REEVES Attending Clinician Unavailable Eliseo Arce MD Attending Clinician Carol Ann IZQUIERDO, Sarai Lieberman Attending Clinician [phone] Ashly Pelletier MA Attending Clinician Unavailable Dagoberto Bass MD Attending Clinician [place] Evangelista Attending Clinician Lab, [facility] I Attending Clinician Unavailable Monica Rodas MA Attending Clinician Unavailable Agustina Ortiz MA Attending Clinician Unavailable Andrez RAMIREZ, Rody Attending Clinician Unavailable Kirit Flood MD, V. Attending Clinician HEMATPOUR, BEVERLY Attending Clinician Unavailable Caridad SUPPLY CATALOGUER, Gloria Attending Clinician Xiao RAMIREZ, Michael Corbin Attending Clinician Unavailable Team, [facility] Attending Clinician UnavailDO PORSHA Newell Attending Clinician Unavailable Gadiel Koehler MD Attending Clinician Tyrone JENKINS, Eveline Sierra Attending Clinician Stanislav RAMIREZ, Eladio Inman Attending Clinician Unavailable Geraldine SALGUERO, Leyda Attending Clinician [phone] Selvin RAMIREZ, Stefanie Attending Clinician Unavailable [...] Number Effective Date Expiration Date S gabino [facility] COMMUNITY PLAN [id number] 2012 STAR PLUS OON 00:00:00 [facility] [id number] 2019 DUAL COMPLETE HMO 00:00:00 [facility] STAR [id number] 2019 PLUS 00:00:00 MEDICAID [facility] [id number] 2020 00:00:00 [facility] [id number] 2019 [facility]ALTH [facility] 00:00:00 [employer] MEDICARE ADV [id number] 2019 2019 00:00:00 00:00:00 Problems Condition Condition Condition Status Onset Resolution Last Treating Co mments Source Name Details Category Date Date Treatment Clinician Date Dyspnea, Dyspnea, Disease Active Unive rs unspecifie unspecifie 02-11 it y of d type d type 00:00: [place] 00 Medical Branch Gastropare Gastropare Disease Active Overview : Methodi sis sis 4-[address] [facility] note l might be different from the original. Added automatic ally from request for surgery [id number] Dysphagia Dysphagia Disease Active Overview: Methodi 4-[address] 00:00: [facility] 00 note l might be different from the original. 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 2020-10-15 Get PVI PVI 3-30 17:07:00 l ABLATION ABLATION 00:00: Patel n W/ CARTO / W/ CARTO / 00 GA / T GA / T Active 08/19/2020 [facility] Food Food Disease Active 2019-05 [...] N/V [facility] hoxazole - Clear 00:00: [facility] trimetho DA Active SV [facility] prim - Clear 00:00: [facility] codeine DA Active SV N/V [facility] -25 Clear 00:00: [facility] Metoclop Propensi Active [...] Hives Univers INGREDI 208 ity of 00:00: [place] [facility] TRIMETHO DRUG Active Hives 2018-0 [...] Date Stop Date Source Natural father Diabetes [facility] Natural father Other - see comments [facility] Natural father [facility] Natural father [facility] [...] Yes University of SARS-CoV-2 (event) 00:00:00 10:25:00 [facility] Tobacco use and 2022-02-11 2022-02-11 Former smokeless Uni versity of exposure 00:00:00 00:00:00 tobacco user [facility] Tobacco Comment 2022-02-11 2022-02-11 Smokes approx 1-2 Un iversity of 00:00:00 00:00:[address] [facility] [place] [place] day when she Branch smokes Alcohol intake 2020-12-08 2020-12-08 Current drinker [facility] 00:00:00 00:00:00 of [facility] (finding) Cigarettes smoked 2020-09-05 2020-09-[address] current (pack per 00:00:00 00:00:00 [facility] day) - Reported Cigarette 2020-09-05 2020-09-05 [facility] pack-years 00:00:00 00:00:00 Hospital Alcohol Comment 2016-09-23 2016-09-23 rare [facility] 00:00:00 00:00:00 Hospital History of tobacco 2011-09-29 User of smokeless University of use 00:00:00 tobacco [facility] Sex Ass[birth year] At [birth year] [facility] 00:00:00 00:00:00 Smoking Status Start Date Stop Date Source Ex-smoker 2022-02-11 00:00:00 2022-02-11 00:00:00 [facility] ty [facility] [place] [facility] Medications Ordered Filled Start Stop Current Ordering Indication Dosage Frequency Signature Comments Components Source Medication Medication Date Date Medication? Clinician (SIG) Name Name ravindra Yes [id number] Take one Univers ne-tenofovi 6-12 po daily ity of r alafen 00:00: [place] (DESCOVY) 00 Medical tablet Branch raltegravir Yes [id number] 400mg Take 1 Univers (ISENTRESS) 6-12 tablet by ity of 400 mg 00:00: mouth in [place] tablet 00 the Medical morning Branch and 1 tablet in the evening. DESCOVY Yes [id number] Take one Univers tablet 5-08 po daily ity of 00:00: [place] 00 Medical Branch raltegravir Yes [id number] 400mg Take 1 Univers (ISENTRESS) 5-08 tablet by ity of 400 mg 00:00: mouth in [place] tablet 00 the Medical morning Branch and 1 tablet in the evening. DESCOVY 2022- No [id number] Take one Univers tablet 5-08 06-12 po daily ity of 00:00: 00:00 [place] 00 :00 Medical Branch raltegravir 2022- No [id number] 400mg Take 1 Univers (ISENTRESS) 5-08 06-12 tablet by it y of 400 mg 00:00: 00:00 mouth in [place] tablet 00 :00 the Medical morning Branch and 1 tablet in the evening. emtmarianabi Yes [id number] Take one Univers ne-tenofovi 4-04 po daily ity of r alafen 00:00: [place] (DESCOVY) 00 Medical tablet Branch emtricitabi Yes [id number] Take one Univers ne-tenofovi 4-04 po daily ity of r alafen 00:00: [place] (DESCOVY) 00 Medical tablet Branch emtricitabi 2022- No [id number] Take one Univers ne-tenofovi 4-04 05-08 po [...] 00 :00 ONCE, 1 Medical dose, On [facility] 05/10/22 at 1245, JOE NaCl 0.9% 2021-05 No 1000mL at 999 Uni vers (NS) bolus 07-11 mL/hr, ity of infusion 17:45: 20:00 1,000 mL, [place] as 1,000 mL 00 :00 IV Medical Infusion, Branch ONCE, 1 dose, On [facility] 05/10/22 at 1145, JOE cefpodoxime 2021-05- No [id number] 100mg Take 1 Univers 100 mg 2-17 12-25 tablet by ity of tablet 00:00: 05:59 mouth in [place] 00 :00 the Medical morning Branch and 1 tablet in the evening. Do all this for 7 days. cefpodoxime 2021-05- No [id number] 100mg Take 1 Univers 100 mg 2-17 12-25 tablet by ity of tablet 00:00: 05:59 mouth in [place] 00 :00 [facility] morning Branch and 1 tablet in the evening. Do all this for 7 days. cefpodoxime 2021-05- No [id number] 100mg Take 1 Univers 100 mg 2-17 12-25 tablet by ity of tablet 00:00: 05:59 mouth in [place] 00 :00 the Medical morning Branch and 1 tablet in the evening. Do all this for 7 days. butalbital- 2021-05- No 1{tbl} 1 tablet, Univers acetaminoph 2-16 12-15 Oral, ity of en-caff 00:15: 23:19 ONCE, 1 [place] (ESGIC) 00 :00 dose, On Medical 50-325-40 [place] Branch mg tablet 1 05/06/22 tablet at 1815, JEO NaCl 0.9% 2021-05 No 500mL at 999 [...] ity of (PF)) 21:15: 22:19 ONCE, 1 [place] injection 8 00 :00 dose, On Medi porfirio mg [facility] 05/06/22 at 1515, JOE ondansetron 2021-05 Yes [id number] 1-2 U nivers 4 mg tablet 2-15 tablets ity o f 00:00: every 8 [place] 00 hours as Medical needed for Branch nausea benzonatate 2021-05 Yes [id number] 200mg Take 1 Univers 200 mg 2-15 capsule by ity of capsule 00:00: mouth 3 (three) Medical times Branch daily as needed for Cough. albuterol 2021-05 Yes [id number] 2{puff} Inhale 2 Univers 90 2-15 Puffs ity of mcg/actuati 00:00: every 4 [place] on inhaler 00 (four) Medical hours as Branch needed for Wheezing or Shortness of Breath. butalbital- 2021-05 Yes [id number] 1{tbl} Take 1 Univers acetaminoph 2-15 tablet by ity of en-caff 00:00: mouth [place] 50-325-40 00 every 4 Medical mg tablet (four) Branch hours as needed (headache) . ondansetron 2021-05 Yes [id number] 1-2 U nivers 4 mg tablet 2-15 tablets ity o f 00:00: every 8 [place] 00 hours as Medical needed for Branch nausea benzonatate 2021-05 Yes [id number] 200mg Take 1 Univers 200 mg 2-15 capsule by ity of capsule 00:00: mouth 3 (three) Medical times Branch daily as needed for Cough. albuterol 2021-05 Yes [id number] 2{puff} Inhale 2 Univers 90 2-15 Puffs ity of mcg/actuati 00:00: every 4 [place] on inhaler 00 (four) Medical hours as Branch needed for Wheezing or Shortness of Breath. butalbital- 2021-05 Yes [id number] 1{tbl} Take 1 Univers acetaminoph 2-15 tablet by ity of en-caff 00:00: mouth [place] 50-325-40 00 every 4 Medical mg tablet (four) Branch hours as needed (headache) . ondansetron 2021-05 Yes [id number] 1-2 U nivers 4 mg tablet 2-15 tablets ity o f 00:00: every 8 [place] 00 hours as Medical needed for Branch nausea benzonatate 2021-05 Yes [id number] 200mg Take 1 Univers 200 mg 2-15 capsule by ity of capsule 00:00: mouth 3 00 (three) Medical times Branch daily as needed for Cough. albuterol 2021-05 Yes [id number] 2{puff} Inhale 2 Univers 90 2-15 Puffs ity of mcg/actuati 00:00: every 4 [place] on inhaler 00 (four) Medical hours as Branch needed for Wheezing or Shortness of Breath. butalbital- 2021-05 Yes [id number] 1{tbl} Take 1 Univers acetaminoph 2-15 tablet by ity of en-caff 00:00: mouth [place] 50-325-40 00 every 4 Medical mg tablet (four) Branch hours as needed (headache) . ondansetron 2021-05 Yes [id number] 1-2 U nivers 4 mg tablet 2-15 tablets ity o f 00:00: every 8 [place] 00 hours as Medical needed for Branch nausea benzonatate 2021-05 Yes [id number] 200mg Take 1 Univers 200 mg 2-15 capsule by ity of capsule 00:00: mouth 3 [place] 00 (three) Medical times Branch daily as needed for Cough. albuterol 2021-05 Yes [id number] 2{puff} Inhale 2 Univers 90 2-15 Puffs ity of mcg/actuati 00:00: every 4 [place] as on inhaler 00 (four) Medical hours as Branch needed for Wheezing or Shortness of Breath. butalbital- 2021-05 Yes [id number] 1{tbl} Take 1 Univers acetaminoph 2-15 tablet by ity of en-caff 00:00: mouth [place] 50-325-40 00 every 4 Medical mg tablet (four) Branch hours as needed (headache) . ondansetron 2021-05 Yes [id number] 1-2 U nivers 4 mg tablet 2-15 tablets ity o f 00:00: every 8 [place] 00 hours as Medical needed for Branch nausea benzonatate 2021-05 Yes [id number] 200mg Take 1 Univers 200 mg 2-15 capsule by ity of capsule 00:00: mouth 3 [place] 00 (three) Medical times Branch daily as needed for Cough. albuterol 2021-05 Yes [id number] 2{puff} Inhale 2 Univers 90 2-15 Puffs ity of mcg/actuati 00:00: every 4 [place] on inhaler 00 (four) Medical hours as Branch needed for Wheezing or Shortness of Breath. butalbital- 2021-05 Yes [id number] 1{tbl} Take 1 Univers acetaminoph 2-15 tablet by ity of en-caff 00:00: mouth [place] 50-325-40 00 every 4 Medical mg tablet (four) Branch hours as needed (headache) . ondansetron 2021-05 Yes [id number] 1-2 U nivers 4 mg tablet 2-15 tablets ity o f 00:00: every 8 [place] 00 hours as Medical needed for Branch nausea benzonatate 2021-05 Yes [id number] 200mg Take 1 Univers 200 mg 2-15 capsule by ity of capsule 00:00: mouth 3 [place] 00 (three) Medical times Branch daily as needed for Cough. albuterol 2021-05 Yes [id number] 2{puff} Inhale 2 Univers 90 2-15 Puffs ity of mcg/actuati 00:00: every 4 [place] on inhaler 00 (four) Medical hours as Branch needed for Wheezing or Shortness of Breath. butalbital- 2021-05 Yes [id number] 1{tbl} Take 1 Univers acetaminoph 2-15 tablet by ity of en-caff 00:00: mouth [place] 50-325-40 00 every 4 Medical mg tablet (four) Branch hours as needed (headache) . ondansetron 2021-05 Yes [id number] 1-2 U nivers 4 mg tablet 2-15 tablets ity o f 00:00: every 8 [place] 00 hours as Medical needed for Branch nausea benzonatate 2021-05 Yes [id number] 200mg Take 1 Univers 200 mg 2-15 capsule by ity of capsule 00:00: mouth 3 00 (three) Medical times Branch daily as needed for Cough. albuterol 2021-05 Yes [id number] 2{puff} Inhale 2 Univers 90 2-15 Puffs ity of mcg/actuati 00:00: every 4 [place] on inhaler 00 (four) Medical hours as Branch needed for Wheezing or Shortness of Breath. butalbital- 2021-05 Yes [id number] 1{tbl} Take 1 Univers acetaminoph 2-15 tablet by ity of en-caff 00:00: mouth [place] 50-325-40 00 every 4 Medical mg tablet (four) Branch hours as needed (headache) . ondansetron 2021-05 Yes [id number] 1-2 U nivers 4 mg tablet 2-15 tablets ity o f 00:00: every 8 [place] 00 hours as Medical needed for Branch nausea benzonatate 2021-05 Yes [id number] 200mg Take 1 Univers 200 mg 2-15 capsule by ity of capsule 00:00: mouth 3 [place] 00 (three) Medical times Branch daily as needed for Cough. albuterol 2021-05 Yes [id number] 2{puff} Inhale 2 Univers 90 2-15 Puffs ity of mcg/actuati 00:00: every 4 [place] on inhaler 00 (four) Medical hours as Branch needed for Wheezing or Shortness of Breath. butalbital- 2021-05 Yes [id number] 1{tbl} Take 1 Univers acetaminoph 2-15 tablet by ity of en-caff 00:00: mouth [place] 50-325-40 00 every 4 Medical mg tablet (four) Branch hours as needed (headache) . ondansetron 2021-05 Yes [id number] 1-2 U nivers 4 mg tablet 2-15 tablets ity o f 00:00: every 8 [place] 00 hours as Medical needed for Branch nausea benzonatate 2021-05 Yes [id number] 200mg Take 1 Univers 200 mg 2-15 capsule by ity of capsule 00:00: mouth 3 00 (three) Medical times Branch daily as needed for Cough. albuterol 2021-05 Yes [id number] 2{puff} Inhale 2 Univers 90 2-15 Puffs ity of mcg/actuati 00:00: every 4 [place] on inhaler 00 (four) Medical hours as Branch needed for Wheezing or Shortness of Breath. butalbital- 2021-05 Yes [id number] 1{tbl} Take 1 Univers acetaminoph 2-15 tablet by ity of en-caff 00:00: mouth [place] 50-325-40 00 every 4 Medical mg tablet (four) Branch hours as needed (headache) . ondansetron 2021-05 Yes [id number] 1-2 U nivers 4 mg tablet 2-15 tablets ity o f 00:00: every 8 [place] 00 hours as Medical needed for Branch nausea benzonatate 2021-05 Yes [id number] 200mg Take 1 Univers 200 mg 2-15 capsule by ity of capsule 00:00: mouth 3 [place] 00 (three) Medical times Branch daily as needed for Cough. albuterol 2021-05 Yes [id number] 2{puff} Inhale 2 Univers 90 2-15 Puffs ity of mcg/actuati 00:00: every 4 [place] as on inhaler 00 (four) Medical hours as Branch needed for Wheezing or Shortness of Breath. butalbital- 2021-05 Yes [id number] 1{tbl} Take 1 Univers acetaminoph 2-15 tablet by ity of en-caff 00:00: mouth [place] 50-325-40 00 every 4 Medical mg tablet (four) Branch hours as needed (headache) . [facility] 2021-05- No [id number] 2{tbl} Take 2 Univers r-ritonavir 2-15 12-21 tablets by i ty of (PAXLOVID, 00:00: 05:59 mouth in [place] EUA,) 300 00 :00 the Medical mg (150 mg morning Branch x 2)-100 mg and 2 tablet tablets in the evening. Do all this for 5 days. [facility] 2021-05- No [id number] 2{tbl} Take 2 Univers r-ritonavir 2-15 12-21 tablets by i ty of (PAXLOVID, 00:00: 05:59 mouth in [place] EUA,) 300 00 :00 the Medical mg (150 mg morning Branch x 2)-100 mg and 2 tablet tablets in the evening. Do all this for 5 days. [facility] 2021-05- No [id number] 2{tbl} Take 2 Univers r-ritonavir 2-15 12-21 tablets by i ty of (PAXLOVID, 00:00: 05:59 mouth in [place] EUA[place] 300 00 :00 the Medical mg (150 mg morning Branch x 2)-100 mg and 2 tablet tablets in the evening. Do all this for 5 days. [facility] 2021-05- No [id number] 2{tbl} Take 2 Univers r-ritonavir 2-15 12-21 [...] 04/22/22 at 1645, Routine amoxicillin 2021-05 Yes [id number] 1{tbl} Take 1 Univers -clavulanat 2-01 [id number] tablet by i ty of e 875-125 00:00: mouth [place] mg per 00 every 12 Medical tablet (twelve) Branch hours. ondansetron 2021-05 Yes [id number] 4mg Take 1 Univers 4 mg 2- 814924 tablet by ity of disintegrat 00:00: mouth [place] ing tablet 00 every 8 Medica l (eight) Branch hours as needed for Nausea and Vomiting (N/V). amoxicillin 2021-05 Yes [id number] 1{tbl} Take 1 Univers -clavulanat 2- 004079 tablet by i ty of e 875-125 00:00: mouth [place] mg per 00 every 12 Medical tablet (twelve) Branch hours. ondansetron 2021-05 Yes [id number] 4mg Take 1 Univers 4 mg 2- 101001 tablet by ity of disintegrat 00:00: mouth [place] ing tablet 00 every 8 Medica l (eight) Branch hours as needed for Nausea and Vomiting (N/V). amoxicillin 2021-05 Yes [id number] 1{tbl} Take 1 Univers -clavulanat 2-01 [id number] tablet by i ty of e 875-125 00:00: mouth [place] mg per 00 every 12 Medical tablet (twelve) Branch hours. ondansetron 2021-05 Yes [id number] 4mg Take 1 Univers 4 mg 2-01 [id number] tablet by ity of disintegrat 00:00: mouth [place] ing tablet 00 every 8 Medica l (eight) Branch hours as needed for Nausea and Vomiting (N/V). amoxicillin 2021-05 Yes [id number] 1{tbl} Take 1 Univers -clavulanat 2-01 [id number] tablet by i ty of e 875-125 00:00: mouth [place] mg per 00 every 12 Medical tablet (twelve) Branch hours. ondansetron 2021-05 Yes [id number] 4mg Take 1 Univers 4 mg 2-01 [id number] tablet by ity of disintegrat 00:00: mouth [place] ing tablet 00 every 8 Medica l (eight) Branch hours as needed for Nausea and Vomiting (N/V). amoxicillin 2021-05 Yes [id number] 1{tbl} Take 1 Univers -clavulanat 2-01 [id number] tablet by i ty of e 875-125 00:00: mouth [place] mg per 00 every 12 Medical tablet (twelve) Branch hours. ondansetron 2021-05 Yes [id number] 4mg Take 1 Univers 4 mg 2-01 [id number] tablet by ity of disintegrat 00:00: mouth [place] ing tablet 00 every 8 Medica l (eight) Branch hours as needed for Nausea and Vomiting (N/V). amoxicillin 2021-05 Yes [id number] 1{tbl} Take 1 Univers -clavulanat 2-01 [id number] tablet by i ty of e 875-125 00:00: mouth [place] mg per 00 every 12 Medical tablet (twelve) Branch hours. ondansetron 2021-05 Yes [id number] 4mg Take 1 Univers 4 mg 2- 979784 tablet by ity of disintegrat 00:00: mouth [place] ing tablet 00 every 8 Medica l (eight) Branch hours as needed for Nausea and Vomiting (N/V). amoxicillin 2021-05 Yes [id number] 1{tbl} Take 1 Univers -clavulanat 2-01 [id number] tablet by i ty of e 875-125 00:00: mouth [place] mg per 00 every 12 Medical tablet (twelve) Branch hours. ondansetron 2021-05 Yes [id number] 4mg Take 1 Univers 4 mg 2-01 [id number] tablet by ity of disintegrat 00:00: mouth [place] ing tablet 00 every 8 Medica l (eight) Branch hours as needed for Nausea and Vomiting (N/V). amoxicillin 2021-05 Yes [id number] 1{tbl} Take 1 Univers -clavulanat 2-01 [id number] tablet by i ty of e 875-125 00:00: mouth [place] mg per 00 every 12 Medical tablet (twelve) Branch hours. ondansetron 2021-05 Yes [id number] 4mg Take 1 Univers 4 mg 2-01 [id number] tablet by ity of disintegrat 00:00: mouth [place] ing tablet 00 every 8 Medica l (eight) Branch hours as needed for Nausea and Vomiting (N/V). amoxicillin 2021-05 Yes [id number] 1{tbl} Take 1 Univers -clavulanat 2-01 [id number] tablet by i ty of e 875-125 00:00: mouth [place] mg per 00 every 12 Medical tablet (twelve) Branch hours. ondansetron 2021-05 Yes [id number] 4mg Take 1 Univers 4 mg 2- [id number] tablet by ity of disintegrat 00:00: mouth [place] ing tablet 00 every 8 Medica l (eight) Branch hours as needed for Nausea and Vomiting (N/V). amoxicillin 2021-05 Yes [id number] 1{tbl} Take 1 Univers -clavulanat 2-01 [id number] tablet by i ty of e 875-125 00:00: mouth [place] mg per 00 every 12 Medical tablet (twelve) Branch hours. ondansetron 2021-05 Yes [id number] 4mg Take 1 Univers 4 mg 2- 790970 tablet by ity of disintegrat 00:00: mouth [place] ing tablet 00 every 8 Medica l (eight) Branch hours as needed for Nausea and Vomiting (N/V). amoxicillin 2021-05 Yes [id number] 1{tbl} Take 1 Univers -clavulanat 2-01 [id number] tablet by i ty of e 875-125 00:00: mouth [place] mg per 00 every 12 Medical tablet (twelve) Branch hours. ondansetron 2021-05 Yes [id number] 4mg Take 1 Univers 4 mg 2- 858508 tablet by ity of disintegrat 00:00: mouth [place] ing tablet 00 every 8 Medica l (eight) Branch hours as needed for Nausea and Vomiting (N/V). amoxicillin 2021-05 Yes [id number] 1{tbl} Take 1 Univers -clavulanat 2-01 [id number] tablet by i ty of e 875-125 00:00: mouth [place] mg per 00 every 12 Medical tablet (twelve) Branch hours. ondansetron 2021-05 Yes [id number] 4mg Take 1 Univers 4 mg 2-01 [id number] tablet by ity of disintegrat 00:00: mouth [place] ing tablet 00 every 8 Medica l (eight) Branch hours as needed for Nausea and Vomiting (N/V). zoster 2021-05- No [id number] .5mL 0.5 mL by Univers vaccine, 0-05 03- 9104 Intramuscu ity of recombinant 00:00: 04:59 lar route [place] (SHINGRIX, 00 :00 once now Medic al PF,) for 1 Branch injection dose. And repeat in 2-6 months zoster 2021-05- No [id number] .5mL 0.5 mL by Univers vaccine, 0-05 03- 9104 Intramuscu ity of recombinant 00:00: 04:59 lar route [place] (SHINGRIX, 00 :00 once now Medic al PF,) for 1 Branch injection dose. And repeat in 2-6 months zoster 2021-05- No [id number] .5mL 0.5 mL by Univers vaccine, 0-05 [...] o f 1 mg tablet 19:28: at [place] [address] bedtime. Medical Branch traZODone 0 Yes 50mg Take 50 mg Un matt 100 mg 9-27 by mouth ity of tablet 19:28: at [place] [address] bedtime. Medical Branch hydralAZINE 2021-0 Yes 25mg [...] o f 1 mg tablet 19:28: at [place] [address] bedtime. Medical Branch traZODone 2021-0 Yes 50mg Take 50 mg Un matt 100 mg 9-27 by mouth ity of tablet 19:28: at [place] [address] bedtime. Medical Branch hydralAZINE 2021-0 Yes 25mg [...] o f 1 mg tablet 19:28: at [place] [address] bedtime. Medical Branch traZODone 2-0 Yes 50mg Take 50 mg Un matt 100 mg 9-27 by mouth ity of tablet 19:28: at [place] [address] bedtime. Medical Branch hydralAZINE 2-0 Yes 25mg [...] o f 1 mg tablet 19:28: at [place] [address] bedtime. Medical Branch traZODone 2021-0 Yes 50mg Take 50 mg Un matt 100 mg 9-27 by mouth ity of tablet 19:28: at [place] [address] bedtime. Medical Branch hydralAZINE 2021-0 Yes 25mg [...] o f 1 mg tablet 19:28: at [place] [address] bedtime. Medical Branch traZODone 2021-0 Yes 50mg Take 50 mg Un matt 100 mg 9-27 by mouth ity of tablet 19:28: at [place] [address] bedtime. Medical Branch hydralAZINE 2021-0 Yes 25mg [...] o f 1 mg tablet 19:28: at [place] [address] bedtime. Medical Branch traZODone 2021-0 Yes 50mg Take 50 mg Un matt 100 mg 9-27 by mouth ity of tablet 19:28: at [place] [address] bedtime. Medical Branch hydralAZINE 2021-0 Yes 25mg [...] o f 1 mg tablet 19:28: at [place] [address] bedtime. Medical Branch traZODone 2021-0 Yes 50mg Take 50 mg Un matt 100 mg 9-27 by mouth ity of tablet 19:28: at [place] [address] bedtime. Medical Branch hydralAZINE 2021-0 Yes 25mg [...] o f 1 mg tablet 19:28: at [place] [address] bedtime. Medical Branch traZODone 2021-0 Yes 50mg Take 50 mg Un matt 100 mg 9- by mouth ity of tablet 19:28: at [place] [address] bedtime. Medical Branch hydralAZINE 2021-0 Yes 25mg [...] o f 1 mg tablet 19:28: at [place] [address] bedtime. Medical Branch traZODone 2-0 Yes 50mg Take 50 mg Un matt 100 mg 9-27 by mouth ity of tablet 19:28: at [place] [address] bedtime. Medical Branch hydralAZINE 2021-0 Yes 25mg [...] 100 mg 04 (two) Medical tablet times [place] daily. amLODIPine 2021-0 Yes 10mg Take 10 mg U nivers (NORVASC) 9- by mouth ity of 10 mg 19:28: daily. [place] tablet 04 Medical Branch clonazePAM 2021-0 Yes 1mg Take 1 mg Un matt (KLONOPIN) 9-27 by mouth ity o f 1 mg tablet 19:28: at [place] [address] bedtime. Medical Branch traZODone 2-0 Yes 50mg Take 50 mg Un matt 100 mg 9-27 by mouth ity of tablet 19:28: at [place] [address] bedtime. Medical Branch hydralAZINE 2-0 Yes 25mg [...] o f 1 mg tablet 19:28: at [place] [address] bedtime. Medical Branch traZODone 2021-0 Yes 50mg Take 50 mg Un matt 100 mg 9-27 by mouth ity of tablet 19:28: at [place] [address] bedtime. Medical Branch hydralAZINE 2021-0 Yes 25mg [...] o f 1 mg tablet 19:28: at [place] [address] bedtime. Medical Branch traZODone 2021-0 Yes 50mg Take 50 mg Un matt 100 mg 9-27 by mouth ity of tablet 19:28: at [place] [address] bedtime. Medical Branch hydralAZINE 2021-0 Yes 25mg [...] o f 1 mg tablet 19:28: at [place] [address] bedtime. Medical Branch traZODone 2021-0 Yes 50mg Take 50 mg Un matt 100 mg 9- by mouth ity of tablet 19:28: at [place] [address] bedtime. Medical Branch hydralAZINE 2021-0 Yes 25mg [...] o f 1 mg tablet 19:28: at [place] [address] bedtime. Medical Branch traZODone 2022-0 Yes 50mg Take 50 mg Un matt 100 mg 9-27 by mouth ity of tablet 19:28: at [place] [address] bedtime. Medical Branch hydralAZINE 2-0 Yes 25mg [...] o f 1 mg tablet 19:28: at [place] [address] bedtime. Medical Branch traZODone 2-0 Yes 50mg Take 50 mg Un matt 100 mg 9-27 by mouth ity of tablet 19:28: at [place] [address] bedtime. Medical Branch hydralAZINE 2021-0 Yes 25mg [...] o f 1 mg tablet 19:28: at [place] [address] bedtime. Medical Branch traZODone 2022-0 Yes 50mg Take 50 mg Un matt 100 mg 9-27 by mouth ity of tablet 19:28: at [place] [address] bedtime. Medical Branch hydralAZINE 2-0 Yes 25mg [...] o f 1 mg tablet 19:28: at [place] [address] bedtime. Medical Branch traZODone 2-0 Yes 50mg Take 50 mg Un matt 100 mg 9-27 by mouth ity of tablet 19:28: at [place] [address] bedtime. Medical Branch hydralAZINE 2-0 Yes 25mg [...] by mouth ity of tablet 19:28: at [place] [address] bedtime. Medical Branch hydralAZINE 2021-0 Yes 25mg [...] o f 1 mg tablet 19:28: at [place] [address] bedtime. Medical Branch traZODone 2021-0 Yes 50mg Take 50 mg Un matt 100 mg 9-27 by mouth ity of tablet 19:28: at [place] [address] bedtime. Medical Branch hydralAZINE 2021-0 Yes 25mg [...] o f 1 mg tablet 19:28: at [place] [address] bedtime. Medical Branch traZODone Yes 50mg Take 50 mg Un matt 100 mg 02-16 by mouth ity of tablet 19:28: at [place] [address] bedtime. [facility] cefpodoxime 2021- No [id number] 200mg Take 1 [facility] 200 mg 02-16 tablet by ity of tablet 00:00: 04:59 mouth in [place] 00 :00 the Medical morning Branch and 1 tablet in the evening. Do all this for 3 days. cefpodoxime 2021- No [id number] 200mg Take 1 [facility] 200 mg 02-16 tablet by ity of tablet 00:00: 04:59 mouth in [place] 00 :00 the [facility] and 1 tablet in the evening. Do all this for 3 days. haloperidol 2021- No 2mg 2 mg, Slow Univers lactate 02-15 IV Push, ity of (HALDOL) 09:00: 09:12 ONCE, 1 [place] injection 2 00 :00 dose, On Medi porfirio mg Mon [place] 02/15/22 at 0400, Routine hydroCHLORO Yes 25mg 25 mg, Univ ers thiazide 9-25 Oral, ity of (ESIDRIX) 14:00: DAILY, [place] capsule 25 00 First dose Med ical mg on [place] [facility] 02/14/22 at 0900, Until Discontinu ed, Routine butalbital- Yes 1{tbl} 1 tablet, [facility] acetaminoph 24 Oral, ity of en-caff 18:46: Q6HPRN, [place] (ESGIC) 06 Starting Medical 50-325-40 on [facility] Branch mg tablet 1 02/13/22 at tablet [...] dose [place] tablet 100 00 on [facility] Medical mg 02/11/22 at Branch 1300, Until Discontinu ed, Routine lisinopriL 0 Yes 40mg 40 mg, Unive rs (PRINIVIL,Z 02-11 Oral, BID, it y of ESTRIL) 18:00: [place] 40 00 on [facility] Medical mg 02/11/22 at Branch 1300, Until Discontinu ed, Routine emtricitabi 0 Yes 1{tbl} 1 [facility], [facility] Oral, ity of r alafen 18:00: DAILY, [place] (DESCOVY) 00 First dose Medi porfirio tablet 1 on [facility] tablet 02/11/22 at 1300, Until [...] 02-11 Oral, ity of (TYLENOL 14:06: 17:37 [facility] [place] #[facility] 300-30 19 :24 Starting Medic al mg tablet 1 on [facility] tablet 02/11/22 at 0906, Until Tue02/12/22 at 1237, Routine, Pain (scale 4-6) sennosides- Yes 1{tbl} 1 tablet, Univers docusate 02-11 Oral, ity of sodium 14:06: QDAILYPRN, [place] (SENOKOT-S) 09 Starting Medi porfirio 8.6-50 mg on [facility] per tablet 02/11/22 at 1 tablet 0906, Until Discontinu ed, Routine, Constipati on ondansetron 0 Yes 4mg 4 mg, Slow Univers (ZOFRAN 02-11 IV Push, ity of (PF)) 14:05[place] injection 4 59 Starting Medi porfirio mg on [facility] Branch 02/11/22 at 0905, Until [...] ity of ) 25 mg 09:10: daily. [facility] 54 Medical Branch amLODIPine 0 Yes 10mg Take 10 mg U nivers (NORVASC) 02-11 by mouth ity of 10 mg 09:10: daily. [facility] 54 [facility] piperacilli 2021- No 3.375g 3.375 g, [...] of therapy: 72 hours iopamidol 2021- No [id number] 60mL 60 mL, Univers (ISOVUE 02-11 Intravenou [...] 02/11/22 at 0015, JOE emtricitabi 0 Yes [id number] Take one Univers ne-tenofovi 9-12 po daily ity of r alafen 00:00: [place] (DESCOVY) Medical tablet Branch emtricitabi Yes [id number] Take one Univers ne-tenofovi 9-12 po daily ity of r alafen 00:00: [place] (DESCOVY) 00 Medical tablet Branch emtricitabi Yes [id number] Take one Univers ne-tenofovi 9-12 po daily ity of r alafen 00:00: [place] (DESCOVY) 00 Medical tablet Branch emtricitabi Yes [id number] Take one Univers ne-tenofovi 9-12 po daily ity of r alafen 00:00: [place] (DESCOVY) 00 Medical tablet Branch emtricitabi Yes [id number] Take one Univers ne-tenofovi 9-12 po daily ity of r alafen 00:00: [place] (DESCOVY) 00 Medical tablet Branch emtricitabi Yes [id number] Take one Univers ne-tenofovi 9-12 po daily ity of r alafen 00:00: [place] (DESCOVY) 00 Medical tablet Branch [facility] Yes [id number] Take one Univers ne-tenofovi 9-12 po daily ity of r alafen 00:00: [place] (DESCOVY) 00 Medical tablet Branch emtricita Yes [id number] Take one Univers ne-tenofovi 9-12 po daily ity of r alafen 00:00: [place] (DESCOVY) 00 Medical tablet Branch emtricita Yes [id number] Take one Univers ne-tenofovi 9-12 po daily ity of r alafen 00:00: [place] (DESCOVY) 00 Medical tablet Branch emtricita Yes [id number] Take one Univers ne-tenofovi 9-12 po daily ity of r alafen 00:00: [place] (DESCOVY) 00 Medical tablet Branch [facility] [id number] Take one Univers ne-tenofovi 9-12 po daily ity of r alafen 00:00: [place] (DESCOVY) 00 Medical tablet Branch [facility] Yes [id number] Take one Univers ne-tenofovi 9-12 po daily ity of r alafen 00:00: [place] (DESCOVY) 00 Medical tablet Branch [facility] Yes [id number] Take one Univers ne-tenofovi 9-12 po daily ity of r alafen 00:00: [place] (DESCOVY) 00 Medical tablet Branch emtricita Yes [id number] Take one Univers ne-tenofovi 9-12 po daily ity of r alafen 00:00: [place] (DESCOVY) 00 Medical tablet Branch emtricita Yes [id number] Take one Univers ne-tenofovi 9-12 po daily ity of r alafen 00:00: [place] (DESCOVY) 00 Medical tablet Branch emtricita Yes [id number] Take one Univers ne-tenofovi 9-12 po daily ity of r alafen 00:00: [place] (DESCOVY) 00 Medical tablet Branch emtricita Yes [id number] Take one Univers ne-tenofovi 9-12 po daily ity of r alafen 00:00: [place] (DESCOVY) 00 Medical tablet Branch emtricitabi 2022- No [id number] Take one Univers ne-tenofovi 02-01-04 po daily ity of r alafen 00:00: 00:00 [place] (DESCOVY) 00 :00 Medical tablet Branch emtricitabi 2021-0 3- No [id number] Take one Univers ne-arianofovi 02-01- po daily ity of r alafen 00:00: 00:00 [place] (DESCOVY) 00 :00 Medical tablet Branch naproxen 2021-0 Yes [id number] 500mg Take 1 U nivers (NAPROSYN) 7-24 tablet by ity of 500 mg 00:00: mouth in [place] tablet 00 the Medical morning Branch and 1 tablet in the evening. Take with meals. methocarbam 2021-0 Yes [id number] 500mg Take 1 Univers oL 500 mg 7-24 tablet by ity o f tablet 00:00: mouth 4 [place] ([facility]) Medical times [place] daily. naproxen 2021-0 Yes [id number] 500mg Take 1 U nivers (NAPROSYN) 7-24 tablet by ity of 500 mg 00:00: mouth in [place] tablet 00 the Medical morning Branch and 1 tablet in the evening. Take with meals. methocarbam 2021-0 Yes [id number] 500mg Take 1 Univers oL 500 mg 7-24 tablet by ity o f tablet 00:00: mouth 4 [place] ([facility]) Medical times Branch daily. naproxen 2-0 Yes [id number] 500mg Take 1 U nivers (NAPROSYN) 7-24 tablet by ity of 500 mg 00:00: mouth in [place] tablet 00 the Medical morning Branch and 1 tablet in the evening. Take with meals. methocarbam 2022-0 Yes [id number] 500mg Take 1 Univers oL 500 mg 7-24 tablet by ity o f tablet 00:00: mouth 4 [place] ([facility]) Medical times Branch daily. naproxen 2-0 2022- No [id number] 500mg Take 1 Univers (NAPROSYN) 7-24 10-14 tablet by ity of 500 mg 00:00: 00:00 mouth in [place] tablet 00 :00 the Medical morning Branch and 1 tablet in the evening. Take with meals. methocarbam 2021- No [id number] 500mg Take 1 [facility] oL 500 mg 12-13 tablet by ity of tablet 00:00: 00:00 mouth 4 [place] 00 :00 (four) Medical times Branch daily. naproxen 2021- No [id number] 500mg Take 1 [facility] (NAPROSYN) 12-13 tablet by ity of 500 mg 00:00: 00:00 mouth in [place] tablet 00 :00 the Medical morning Branch and 1 tablet in the evening. Take with meals. methocarbam 2021- No [id number] 500mg Take 1 [facility] oL 500 mg [...] [place] 57 :00 daily. Medical Branch apixaban No [...] tablet 47 Medical Branch cephALEXin 2021- No [id number] 500mg Take 1 Univers (KEFLEX) 10-24 capsule [...] 7-10). Indication s: acute pain buPROPion Yes [id number] 150mg Take 1 U nivers XL 4-12 tablet by ity of (WELLBUTRIN 00:00: mouth [place] XL) 150 mg 00 daily. Medical 24 hr Branch tablet busPIRone Yes [id number] 30mg Take 1 Un matt 30 mg 4-12 tablet by ity of tablet 00:00: mouth 2 [place] 00 (two) Medical times Branch daily. SERTraline Yes [id number] 200mg Take 2 [facility] 100 mg 4-12 tablets by ity of tablet 00:00: mouth [place] 00 daily. Medical Branch buPROPion Yes [id number] 150mg Take 1 U nivers XL 4-12 tablet by ity of (WELLBUTRIN 00:00: mouth [place] XL) 150 mg 00 daily. Medical 24 hr Branch tablet busPIRone 2021-0 Yes [id number] 30mg Take 1 Un matt 30 mg 4-12 tablet by ity of tablet 00:00: mouth 2 [place] 00 (two) Medical times Branch daily. SERTraline 2021-0 Yes [id number] 200mg Take 2 [facility] 100 mg 4-12 tablets by ity of tablet 00:00: mouth [place] 00 daily. Medical Branch buPROPion 2021-0 Yes [id number] 150mg Take 1 U nivers XL 4-12 tablet by ity of (WELLBUTRIN 00:00: mouth [place] XL) 150 mg 00 daily. Medical 24 hr Branch tablet busPIRone 2021-0 Yes [id number] 30mg Take 1 Un matt 30 mg 4-12 tablet by ity of tablet 00:00: mouth 2 [place] 00 (two) Medical times Branch daily. SERTraline 2021-0 Yes [id number] 200mg Take 2 [facility] 100 mg 4-12 tablets by ity of tablet 00:00: mouth [place] 00 daily. Medical Branch buPROPion 2021-0 Yes [id number] 150mg Take 1 U nivers XL 4-12 tablet by ity of (WELLBUTRIN 00:00: mouth [place] XL) 150 mg 00 daily. Medical 24 hr Branch tablet busPIRone 2021-0 Yes [id number] 30mg Take 1 Un matt 30 mg 4-12 tablet by ity of tablet 00:00: mouth 2 [place] 00 (two) Medical times Branch daily. SERTraline 2021-0 Yes [id number] 200mg Take 2 [facility] 100 mg 4-12 tablets by ity of tablet 00:00: mouth [place] 00 daily. Medical Branch buPROPion 2021-0 Yes [id number] 150mg Take 1 U nivers XL 4-12 tablet by ity of (WELLBUTRIN 00:00: mouth [place] XL) 150 mg 00 daily. Medical 24 hr Branch tablet busPIRone 2021-0 Yes [id number] 30mg Take 1 Un matt 30 mg 4-12 tablet by ity of tablet 00:00: mouth 2 [place] 00 (two) Medical times Branch daily. SERTraline 2021-0 Yes [id number] 200mg Take 2 [facility] 100 mg 4-12 tablets by ity of tablet 00:00: mouth [place] 00 daily. Medical Branch buPROPion 2021-0 Yes [id number] 150mg Take 1 U nivers XL 4-12 tablet by ity of (WELLBUTRIN 00:00: mouth [place] XL) 150 mg 00 daily. Medical 24 hr Branch tablet busPIRone 2021-0 Yes [id number] 30mg Take 1 Un matt 30 mg 4-12 tablet by ity of tablet 00:00: mouth 2 [place] 00 (two) Medical times Branch daily. SERTraline 2021-0 Yes [id number] 200mg Take 2 [facility] 100 mg 4-12 tablets by ity of tablet 00:00: mouth [place] 00 daily. Medical Branch buPROPion 2021-0 Yes [id number] 150mg Take 1 U nivers XL 4-12 tablet by ity of (WELLBUTRIN 00:00: mouth [place] XL) 150 mg 00 daily. Medical 24 hr Branch tablet busPIRone 2021-0 Yes [id number] 30mg Take 1 Un matt 30 mg 4-12 tablet by ity of tablet 00:00: mouth 2 [place] 00 (two) Medical times Branch daily. SERTraline 2021-0 Yes [id number] 200mg Take 2 [facility] 100 mg 4-12 tablets by ity of tablet 00:00: mouth [place] 00 daily. Medical Branch buPROPion 2021-0 Yes [id number] 150mg Take 1 U nivers XL 4-12 tablet by ity of (WELLBUTRIN 00:00: mouth [place] XL) 150 mg 00 daily. Medical 24 hr Branch tablet busPIRone 2021-0 Yes [id number] 30mg Take 1 Un matt 30 mg 4-12 tablet by ity of tablet 00:00: mouth 2 [place] 00 (two) Medical times Branch daily. SERTraline 2021-0 Yes [id number] 200mg Take 2 [facility] 100 mg 4-12 tablets by ity of tablet 00:00: mouth [place] 00 daily. Medical Branch buPROPion 2021-0 Yes [id number] 150mg Take 1 U nivers XL 4-12 tablet by ity of (WELLBUTRIN 00:00: mouth [place] XL) 150 mg 00 daily. Medical 24 hr Branch tablet busPIRone 2021-0 Yes [id number] 30mg Take 1 Un matt 30 mg 4-12 tablet by ity of tablet 00:00: mouth 2 [place] 00 (two) Medical times Branch daily. SERTraline 2021-0 Yes [id number] 200mg Take 2 [facility] 100 mg 4-12 tablets by ity of tablet 00:00: mouth [place] 00 daily. Medical Branch buPROPion 2021-0 Yes [id number] 150mg Take 1 U nivers XL 4-12 tablet by ity of (WELLBUTRIN 00:00: mouth [place] XL) 150 mg 00 daily. Medical 24 hr Branch tablet busPIRone 2021-0 Yes [id number] 30mg Take 1 Un matt 30 mg 4-12 tablet by ity of tablet 00:00: mouth 2 [place] 00 (two) Medical times Branch daily. SERTraline 2021-0 Yes [id number] 200mg Take 2 [facility] 100 mg 4-12 tablets by ity of tablet 00:00: mouth [place] 00 daily. Medical Branch buPROPion 2021-0 Yes [id number] 150mg Take 1 U nivers XL 4-12 tablet by ity of (WELLBUTRIN 00:00: mouth [place] XL) 150 mg 00 daily. Medical 24 hr Branch tablet busPIRone 2021-0 Yes [id number] 30mg Take 1 Un matt 30 mg 4-12 tablet by ity of tablet 00:00: mouth 2 [place] 00 (two) Medical times Branch daily. SERTraline 2021-0 Yes [id number] 200mg Take 2 [facility] 100 mg 4-12 tablets by ity of tablet 00:00: mouth [place] 00 daily. Medical Branch buPROPion 2021-0 Yes [id number] 150mg Take 1 U nivers XL 4-12 tablet by ity of (WELLBUTRIN 00:00: mouth [place] XL) 150 mg 00 daily. Medical 24 hr Branch tablet busPIRone 2021-0 Yes [id number] 30mg Take 1 Un matt 30 mg 4-12 tablet by ity of tablet 00:00: mouth 2 [place] 00 (two) Medical times Branch daily. SERTraline 2021-0 Yes [id number] 200mg Take 2 [facility] 100 mg 4-12 tablets by ity of tablet 00:00: mouth [place] 00 daily. Medical Branch buPROPion 2021-0 Yes [id number] 150mg Take 1 U nivers XL 4-12 tablet by ity of (WELLBUTRIN 00:00: mouth [place] XL) 150 mg 00 daily. Medical 24 hr Branch tablet busPIRone 2021-0 Yes [id number] 30mg Take 1 Un matt 30 mg 4-12 tablet by ity of tablet 00:00: mouth 2 [place] 00 (two) Medical times Branch daily. SERTraline 2021-0 Yes [id number] 200mg Take 2 [facility] 100 mg 4-12 tablets by ity of tablet 00:00: mouth [place] 00 daily. Medical Branch buPROPion 2021-0 Yes [id number] 150mg Take 1 U nivers XL 4-12 tablet by ity of (WELLBUTRIN 00:00: mouth [place] XL) 150 mg 00 daily. Medical 24 hr Branch tablet busPIRone 2021-0 Yes [id number] 30mg Take 1 Un matt 30 mg 4-12 tablet by ity of tablet 00:00: mouth 2 [place] 00 (two) Medical times Branch daily. SERTraline 2021-0 Yes [id number] 200mg Take 2 [facility] 100 mg 4-12 tablets by ity of tablet 00:00: mouth [place] 00 daily. Medical Branch buPROPion 2021-0 Yes [id number] 150mg Take 1 U nivers XL 4-12 tablet by ity of (WELLBUTRIN 00:00: mouth [place] XL) 150 mg 00 daily. Medical 24 hr Branch tablet busPIRone 2021-0 Yes [id number] 30mg Take 1 Un matt 30 mg 4-12 tablet by ity of tablet 00:00: mouth 2 00 (two) Medical times Branch daily. SERTraline 2021-0 Yes [id number] 200mg Take 2 [facility] 100 mg 4-12 tablets by ity of tablet 00:00: mouth [place] 00 daily. Medical Branch buPROPion 2021-0 Yes [id number] 150mg Take 1 U nivers XL 4-12 tablet by ity of (WELLBUTRIN 00:00: mouth [place] XL) 150 mg 00 daily. Medical 24 hr Branch tablet busPIRone 2021-0 Yes [id number] 30mg Take 1 Un matt 30 mg 4-12 tablet by ity of tablet 00:00: mouth 2 (two) Medical times Branch daily. SERTraline 2021-0 Yes [id number] 200mg Take 2 [facility] 100 mg 4-12 tablets by ity of tablet 00:00: mouth [place] 00 daily. Medical Branch buPROPion 2021-0 Yes [id number] 150mg Take 1 U nivers XL 4-12 tablet by ity of (WELLBUTRIN 00:00: mouth [place] XL) 150 mg 00 daily. Medical 24 hr Branch tablet busPIRone 2021-0 Yes [id number] 30mg Take 1 Un matt 30 mg 4-12 tablet by ity of tablet 00:00: mouth 2 (two) Medical times Branch daily. SERTraline 2021-0 Yes [id number] 200mg Take 2 [facility] 100 mg 4-12 tablets by ity of tablet 00:00: mouth [place] 00 daily. Medical Branch buPROPion 2021-0 Yes [id number] 150mg Take 1 U nivers XL 4-12 tablet by ity of (WELLBUTRIN 00:00: mouth [place] XL) 150 mg 00 daily. Medical 24 hr Branch tablet busPIRone 2021-0 Yes [id number] 30mg Take 1 Un matt 30 mg 4-12 tablet by ity of tablet 00:00: mouth 2 (two) Medical times Branch daily. SERTraline 2021-0 Yes [id number] 200mg Take 2 [facility] 100 mg 4-12 tablets by ity of tablet 00:00: mouth [place] 00 daily. Medical Branch buPROPion 2021-0 Yes [id number] 150mg Take 1 U nivers XL 4-12 tablet by ity of (WELLBUTRIN 00:00: mouth [place] XL) 150 mg 00 daily. Medical 24 hr Branch tablet busPIRone 2021-0 Yes [id number] 30mg Take 1 Un matt 30 mg 4-12 tablet by ity of tablet 00:00: mouth 2 [place] 00 (two) Medical times Branch daily. SERTraline 2021-0 Yes [id number] 200mg Take 2 [facility] 100 mg 4-12 tablets by ity of tablet 00:00: mouth [place] 00 daily. Medical Branch buPROPion 2021-0 Yes [id number] 150mg Take 1 U nivers XL 4-12 tablet by ity of (WELLBUTRIN 00:00: mouth [place] XL) 150 mg 00 daily. Medical 24 hr Branch tablet busPIRone 2021-0 Yes [id number] 30mg Take 1 Un matt 30 mg 4-12 tablet by ity of tablet 00:00: mouth 2 [place] 00 (two) Medical times Branch daily. SERTraline 2021-0 Yes [id number] 200mg Take 2 [facility] 100 mg 4-12 tablets by ity of tablet 00:00: mouth [place] 00 daily. Medical Branch buPROPion 2021-0 Yes [id number] 150mg Take 1 U nivers XL 4-12 tablet by ity of (WELLBUTRIN 00:00: mouth [place] XL) 150 mg 00 daily. Medical 24 hr Branch tablet busPIRone 2021-0 Yes [id number] 30mg Take 1 Un matt 30 mg 4-12 tablet by ity of tablet 00:00: mouth 2 [place] 00 (two) Medical times Branch daily. SERTraline 2021-0 Yes [id number] 200mg Take 2 [facility] 100 mg 4-12 tablets by ity of tablet 00:00: mouth [place] 00 daily. Medical Branch buPROPion 2021-0 Yes [id number] 150mg Take 1 U nivers XL 4-12 tablet by ity of (WELLBUTRIN 00:00: mouth [place] XL) 150 mg 00 daily. Medical 24 hr Branch tablet busPIRone 2021-0 Yes [id number] 30mg Take 1 Un matt 30 mg 4-12 tablet by ity of tablet 00:00: mouth 2 [place] 00 (two) Medical times Branch daily. SERTraline 2021-0 Yes [id number] 200mg Take 2 [facility] 100 mg 4-12 tablets by ity of tablet 00:00: mouth [place] 00 daily. Medical Branch raltegravir 2021-0 Yes [id number] 400mg Take 1 [facility] (ISENTRESS) 3-28 tablet by ity of 400 mg 00:00: mouth 2 [place] tablet 00 (two) Medical times Branch daily. raltegravir 2021-0 Yes [id number] 400mg Take 1 [facility] (ISENTRESS) 3-28 tablet by ity of 400 mg 00:00: mouth 2 [place] tablet 00 (two) Medical times Branch daily. raltegravir 2021-0 Yes [id number] 400mg Take 1 Univers (ISENTRESS) 3-28 tablet by ity of 400 mg 00:00: mouth 2 [place] tablet 00 (two) Medical times Branch daily. raltegravir 2021-0 Yes [id number] 400mg Take 1 Univers (ISENTRESS) 3-28 tablet by ity of 400 mg 00:00: mouth 2 [place] tablet 00 (two) Medical times Branch daily. raltegravir 2021-0 Yes [id number] 400mg Take 1 Univers (ISENTRESS) 3-28 tablet by ity of 400 mg 00:00: mouth 2 [place] tablet 00 (two) Medical times Branch daily. raltegravir 2021-0 Yes [id number] 400mg Take 1 [facility] (ISENTRESS) 3-28 tablet by ity of 400 mg 00:00: mouth 2 [place] tablet 00 (two) Medical times Branch daily. raltegravir 2021-0 Yes [id number] 400mg Take 1 [facility] (ISENTRESS) 3-28 tablet by ity of 400 mg 00:00: mouth 2 [place] tablet 00 (two) Medical times Branch daily. raltegravir 2021-0 Yes [id number] 400mg Take 1 [facility] (ISENTRESS) 3-28 tablet by ity of 400 mg 00:00: mouth 2 [place] tablet 00 (two) Medical times Branch daily. raltegravir 2021-0 Yes [id number] 400mg Take 1 [facility] (ISENTRESS) 3-28 tablet by ity of 400 mg 00:00: mouth 2 [place] tablet 00 (two) Medical times Branch daily. raltegravir 2022-0 Yes [id number] 400mg Take 1 [facility] (ISENTRESS) 3-28 tablet by ity of 400 mg 00:00: mouth 2 [place] tablet 00 (two) Medical times Branch daily. raltegravir 2022-0 Yes [id number] 400mg Take 1 [facility] (ISENTRESS) 3-28 tablet by ity of 400 mg 00:00: mouth 2 [place] tablet 00 (two) Medical times Branch daily. raltegravir 2022-0 Yes [id number] 400mg Take 1 [facility] (ISENTRESS) 3-28 tablet by ity of 400 mg 00:00: mouth 2 [place] tablet 00 (two) Medical times Branch daily. raltegravir 2022-0 Yes [id number] 400mg Take 1 [facility] (ISENTRESS) 3-28 tablet by ity of 400 mg 00:00: mouth 2 [place] tablet 00 (two) Medical times Branch daily. raltegravir 2-0 Yes [id number] 400mg Take 1 [facility] (ISENTRESS) 3-28 tablet by ity of 400 mg 00:00: mouth 2 [place] tablet 00 (two) Medical times Branch daily. raltegravir 2022-0 Yes [id number] 400mg Take 1 [facility] (ISENTRESS) 3-28 tablet by ity of 400 mg 00:00: mouth 2 [place] tablet 00 (two) Medical times Branch daily. raltegravir 2022-0 Yes [id number] 400mg Take 1 [facility] (ISENTRESS) 3-28 tablet by ity of 400 mg 00:00: mouth 2 [place] tablet 00 (two) Medical times Branch daily. raltegravir 2022-0 Yes [id number] 400mg Take 1 [facility] (ISENTRESS) 3-28 tablet by ity of 400 mg 00:00: mouth 2 [place] tablet 00 (two) Medical times Branch daily. raltegravir 2022-0 Yes [id number] 400mg Take 1 [facility] (ISENTRESS) 3-28 tablet by ity of 400 mg 00:00: mouth 2 [place] tablet 00 (two) Medical times Branch daily. raltegravir 2022-0 Yes [id number] 400mg Take 1 [facility] (ISENTRESS) 3-28 tablet by ity of 400 mg 00:00: mouth 2 [place] tablet 00 (two) Medical times Branch daily. raltegravir Yes [id number] 400mg Take 1 [facility] (ISENTRESS) 3-28 tablet by ity of 400 mg 00:00: mouth 2 [place] tablet 00 (two) Medical times Branch daily. raltegravir 2022- No [id number] 400mg Take 1 [facility] (ISENTRESS) 3-28 05-08 tablet by it y of 400 mg 00:00: 00:00 mouth 2 [place] tablet 00 :00 (two) Medical times Branch daily. LORazepam 1 2021- No [id number] 1mg Take 1 Univers mg tablet 3-10 [...] times a tablet day. emtricitabi 2021- No [id number] Take one [facility] ne-tenofovi 1-20 09-12 po daily ity of r alafen 00:00: 00:00 [place] (DESCOVY) 00 :00 Medical tablet Branch metoprolol Yes [id number] Take 1 [facility] tartrate 7-26 tablet Health (Lopressor) 00:00: (100 mg 100 MG 00 total) by tablet mouth 2 (two) times a day AND 0.5 tablets (50 mg total) every night. metoprolol Yes [id number] Take 1 [facility] tartrate 7-26 tablet [facility] [...] (affected area in groin) hydrALAZINE Yes 50mg Q.[id number] Take 50 mg [facility] (APRESOLINE 7-19 [id number] mouth [address] [facility] ) 50 MG [...] (affected area in groin) hydrALAZINE Yes 50mg Q.[id number] Take 50 mg [facility] (APRESOLINE 7-19 [id number] mouth [address] [facility] ) 50 MG [...] area in groin) hydrALAZINE 2021-0 Yes 50mg Q.[id number] Take 50 mg [facility] (APRESOLINE 7-19 [id number] [address] mouth [facility] ) 50 MG [...] (affected area in groin) hydrALAZINE Yes 50mg Q.[id number] Take 50 mg [facility] (APRESOLINE 7-19 [id number] mouth [facility] ) 50 MG [...] (affected area in groin) hydrALAZINE Yes 50mg Q.[id number] Take 50 mg [facility] (APRESOLINE 7-19 [id number] mouth [facility] ) 50 MG [...] area in groin) hydrALAZINE 0 Yes 50mg Q.[id number] Take 50 mg [facility] (APRESOLINE 7-[id number] mouth [address] ) 50 MG [...] (affected area in groin) hydrALAZINE Yes 50mg Q.[id number] Take 50 mg [facility] (APRESOLINE 7-19 [id number] [address] mouth [address] ) 50 MG 10:51: 3D (three) [facility] tablet 25 times a l day. busPIRone Yes 20mg QD Take 20 mg [facility] (BUSPAR) 10 7-[address] MG tablet 10:51: nightly. Hosp sorne 25 l acetaminoph Yes 1000mg Q.5D Take [...] (affected area in groin) hydrALAZINE Yes 50mg Q.83374656 Take 50 mg [facility] (APRESOLINE 7-19 [id number] by mouth 3 st ) 50 MG [...] area in groin) hydrALAZINE 0 Yes 50mg Q.97122654 Take 50 mg [facility] (APRESOLINE 7-19 [id number] [address] mouth 3 [address] ) 50 MG [...] area in groin) hydrALAZINE 0 Yes 50mg Q.11361288 Take 50 mg [facility] (APRESOLINE 7-19 4661689930 by mouth 3 st ) 50 MG [...] (affected area in groin) hydrALAZINE Yes 50mg Q.10786485 Take 50 mg [facility] (APRESOLINE - [id number] by mouth 3 st ) 50 MG [...] area in groin) hydrALAZINE 0 Yes 50mg Q.94449844 Take 50 mg [facility] (APRESOLINE -19 [id number] by mouth 3 st ) 50 MG [...] area in groin) hydrALAZINE 2020-0 Yes 50mg Q.48948221 Take 50 mg [facility] (APRESOLINE 7-19 4996938504 by mouth 3 st ) 50 MG [...] (affected area in groin) hydrALAZINE Yes 50mg Q.27720757 Take 50 mg [facility] (APRESOLINE -19 4431224998 by mouth 3 st ) 50 MG [...] area in groin) hydrALAZINE 0 Yes 50mg Q.48772209 Take 50 mg [facility] (APRESOLINE 7-19 [id number] [address] mouth 3 [address] ) 50 MG [...] area in groin) hydrALAZINE 2020-0 Yes 50mg Q.24780317 Take 50 mg [facility] (APRESOLINE 7-19 [id number] by mouth 3 [address] ) 50 MG [...] area in groin) hydrALAZINE 0 Yes 50mg Q.59215621 Take 50 mg [facility] (APRESOLINE 7-19 4129946001 [address] mouth [address] ) 50 MG [...] (affected area in groin) hydrALAZINE Yes 50mg Q.15216522 Take 50 mg [facility] (APRESOLINE 7-19 [id number] [address] mouth 3 [address] ) 50 MG [...] area in groin) hydrALAZINE 2020-0 Yes 50mg Q.95814217 Take 50 mg [facility] (APRESOLINE -19 [id number] [address] mouth [address] ) 50 MG [...] area in groin) hydrALAZINE 0 Yes 50mg Q.35655710 Take 50 mg [facility] (APRESOLINE 7-19 [address]8743704 [address] mouth 3 [address] ) 50 MG [...] (affected area in groin) hydrALAZINE Yes 50mg Q.62800236 Take 50 mg [facility] (APRESOLINE 7-19 [address] mouth [address] ) 50 MG [...] area in groin) hydrALAZINE 0 Yes 50mg Q.53935721 Take 50 mg [facility] (APRESOLINE -19 3620753330 by mouth 3 [address] ) 50 MG [...] area in groin) hydrALAZINE 0 Yes 50mg Q.67055972 Take 50 mg [facility] (APRESOLINE 7-19 [address]18[address]7 [address] mouth [address] ) 50 MG [...] (affected area in groin) hydrALAZINE Yes 50mg Q.16907704 Take 50 mg [facility] (APRESOLINE 7-19 0693109520 [address] mouth [address] ) 50 MG [...] area in groin) hydrALAZINE 0 Yes 50mg Q.45422524 Take 50 mg [facility] (APRESOLINE 7-19 [address]26[address]16 [address] mouth [address] ) 50 MG [...] area in groin) hydrALAZINE 2020-0 Yes 50mg Q.23893574 Take 50 mg [facility] (APRESOLINE 7-19 [id number] mouth [address] ) 50 MG [...] area in groin) hydrALAZINE 0 Yes 50mg Q.30016947 Take 50 mg [facility] (APRESOLINE 7-19 [id number] [address] mouth [address] ) 50 MG [...] (affected area in groin) hydrALAZINE Yes 50mg Q.02509202 Take 50 mg [facility] (APRESOLINE - [id number] by mouth 3 st ) 50 MG [...] (affected area in groin) hydrALAZINE Yes 50mg Q.94641721 Take 50 mg [facility] (APRESOLINE 7-19 2719157151 [address] mouth [address] ) 50 MG [...] area in groin) hydrALAZINE 2020-0 Yes 50mg Q.95572520 Take 50 mg [facility] (APRESOLINE 7-19 7466[address]261 [address] mouth [address] ) 50 MG [...] (affected area in groin) hydrALAZINE Yes 50mg Q.84547904 Take 50 mg [facility] (APRESOLINE 7-19 [address] mouth [address] ) 50 MG [...] area in groin) hydrALAZINE 0 Yes 50mg Q.40815863 Take 50 mg [facility] (APRESOLINE 7-19 [id number] mouth [address] ) 50 MG [...] area in groin) hydrALAZINE 0 Yes 50mg Q.65001612 Take 50 mg [facility] (APRESOLINE 7-19 [address]2612[address] mouth [address] ) 50 MG [...] (affected area in groin) hydrALAZINE Yes 50mg Q.03164228 Take 50 mg [facility] (APRESOLINE 7-19 [address] mouth [address] ) 50 MG [...] (affected area in groin) hydrALAZINE Yes 50mg Q.80547771 Take 50 mg [facility] (APRESOLINE 7-19 [id number] [address] mouth [address] ) 50 MG [...] area in groin) hydrALAZINE 0 Yes 50mg Q.47620158 Take 50 mg [facility] (APRESOLINE 7-19 [address]67[address] mouth [address] ) 50 MG [...] (affected area in groin) hydrALAZINE Yes 50mg Q.31721186 Take 50 mg [facility] (APRESOLINE 7-19 [address] mouth [address] ) 50 MG [...] (affected area in groin) hydrALAZINE Yes 50mg Q.22985185 Take 50 mg [facility] (APRESOLINE 7-19 [address] mouth [address] ) 50 MG [...] area in groin) hydrALAZINE 0 Yes 50mg Q.55072235 Take 50 mg [facility] (APRESOLINE 7-19 [address]79812028 [address] mouth [address] ) 50 MG [...] area in groin) hydrALAZINE 0 Yes 50mg Q.73380004 Take 50 mg [facility] (APRESOLINE 7-[address] mouth [address] ) 50 MG [...] (affected area in groin) hydrALAZINE Yes 50mg Q.85982459 Take 50 mg [facility] (APRESOLINE 7-19 [address]22[address] mouth [address] ) 50 MG [...] area in groin) hydrALAZINE 0 Yes 50mg Q.03712071 Take 50 mg [facility] (APRESOLINE 7-[id number] mouth [address] ) 50 MG [...] area in groin) hydrALAZINE 2020-0 Yes 50mg Q.77929589 Take 50 mg [facility] (APRESOLINE 7-19 [address] mouth [address] ) 50 MG [...] (affected area in groin) hydrALAZINE Yes 50mg Q.30976346 Take 50 mg [facility] (APRESOLINE 7-19 [address] mouth [address] ) 50 MG [...] area in groin) hydrALAZINE 0 Yes 50mg Q.85735789 Take 50 mg [facility] (APRESOLINE 7-[address] mouth [address] ) 50 MG [...] area in groin) hydrALAZINE 0 Yes 50mg Q.94865444 Take 50 mg [facility] (APRESOLINE 7-[id number] mouth [address] ) 50 MG [...] area in groin) hydrALAZINE 0 Yes 50mg Q.81493691 Take 50 mg [facility] (APRESOLINE 7-19 [address] mouth [address] ) 50 MG [...] (affected area in groin) hydrALAZINE Yes 50mg Q.59115906 Take 50 mg [facility] (APRESOLINE 7-19 [address] mouth [address] ) 50 MG [...] area in groin) hydrALAZINE 0 Yes 50mg Q.68138223 Take 50 mg [facility] (APRESOLINE 7-[address] mouth [address] ) 50 MG [...] (affected area in groin) hydrALAZINE Yes 50mg Q.86970818 Take 50 mg [facility] (APRESOLINE 7-[address] mouth [address] ) 50 MG [...] (affected area in groin) hydrALAZINE Yes 50mg Q.52130319 Take 50 mg [facility] (APRESOLINE 7-[address] mouth [address] ) 50 MG [...] area in groin) hydrALAZINE 0 Yes 50mg Q.39906964 Take 50 mg [facility] (APRESOLINE - 0831158231 by mouth 3 st ) 50 MG [...] area in groin) hydrALAZINE 0 Yes 50mg Q.26100743 Take 50 mg [facility] (APRESOLINE 7-[address] mouth [address] ) 50 MG [...] (affected area in groin) hydrALAZINE Yes 50mg Q.79262627 Take 50 mg [facility] (APRESOLINE 7-19 [address] mouth [address] ) 50 MG [...] area in groin) hydrALAZINE 0 Yes 50mg Q.22955335 Take 50 mg [facility] (APRESOLINE 7-[address] mouth [address] ) 50 MG [...] area in groin) hydrALAZINE 2021-0 Yes 50mg Q.92040356 Take 50 mg [facility] (APRESOLINE 7-[address] ) 50 MG [...] (affected area in groin) hydrALAZINE Yes 50mg Q.84342140 Take 50 mg [facility] (APRESOLINE 7-[address] mouth [address] ) 50 MG [...] area in groin) hydrALAZINE 0 Yes 50mg Q.63484026 Take 50 mg [facility] (APRESOLINE 7-[address] mouth [address] ) 50 MG [...] area in groin) hydrALAZINE 0 Yes 50mg Q.37148280 Take 50 mg [facility] (APRESOLINE 7-19 [address] mouth [address] ) 50 MG [...] (affected area in groin) hydrALAZINE Yes 50mg Q.48638899 Take 50 mg [facility] (APRESOLINE 7-[address] mouth [address] ) 50 MG [...] (affected area in groin) hydrALAZINE Yes 50mg Q.86899834 Take 50 mg [facility] (APRESOLINE 7-19 [address]3215835 [address] mouth [address] ) 50 MG [...] Hospita tablet 25 l nystatin-tr 2020-0 Yes [id number] Apply to [facility] iainolone 7-06 area(s) 3 ity of cream 00:00: (three) [place] 00 times Medical daily. Branch nystatin-tr 2021-0 Yes [id number] Apply to [facility] iamcinolone 7-06 area(s) 3 ity of cream 00:00: (three) [place] 00 times Medical daily. Branch nystatin-tr 2021-0 Yes [id number] Apply to [facility] iamcinolone 7-06 area(s) 3 ity of cream 00:00: (three) [place] 00 times Medical daily. Branch nystatin-tr 2021-0 Yes [id number] Apply to [facility] iamcinolone 7-06 area(s) 3 ity of cream 00:00: (three) [place] 00 times Medical daily. Branch nystatin-tr 2021-0 Yes [id number] Apply to [facility] iamcinolone 7-06 area(s) 3 ity of cream 00:00: (three) [place] 00 times Medical daily. Branch nystatin-tr 2021-0 Yes [id number] [facility] to [facility] iamcinolone 7-06 area(s) 3 ity of cream 00:00: (three) [place] 00 times Medical daily. Branch nystatin-tr 2021-0 Yes [id number] Apply to [facility] iamcinolone 7-06 area(s) 3 ity of cream 00:00: (three) [place] 00 times Medical daily. Branch nystatin-tr 2021-0 Yes [id number] Apply to [facility] iamcinolone 7-06 area(s) 3 ity of cream 00:00: (three) [place] 00 times Medical daily. Branch nystatin-tr 2021-0 Yes [id number] Apply to [facility] iamcinolone 7-06 area(s) 3 ity of cream 00:00: (three) [place] 00 times Medical daily. Branch nystatin-tr 2021-0 Yes [id number] Apply to [facility] iamcinolone 7-06 area(s) 3 ity of cream 00:00: (three) [place] 00 times Medical daily. Branch nystatin-tr 2021-0 Yes [id number] Apply to [facility] iamcinolone 7-06 area(s) 3 ity of cream 00:00: (three) [place] 00 times Medical daily. Branch nystatin-tr 2021-0 Yes [id number] Apply to [facility] iamcinolone 7-06 area(s) 3 ity of cream 00:00: (three) [place] 00 times Medical daily. Branch nystatin-tr 2021-0 Yes [id number] Apply to [facility] iamcinolone 7-06 area(s) 3 ity of cream 00:00: (three) [place] 00 times Medical daily. Branch nystatin-tr 2021-0 Yes [id number] Apply to [facility] iamcinolone 7-06 area(s) 3 ity of cream 00:00: (three) [place] 00 times Medical daily. Branch nystatin-tr 2021-0 Yes [id number] Apply to [facility] iamcinolone 7-06 area(s) 3 ity of cream 00:00: (three) [place] 00 times Medical daily. Branch nystatin-tr 2021-0 Yes [id number] Apply to [facility] iamcinolone 7-06 area(s) 3 ity of cream 00:00: (three) [place] 00 times Medical daily. Branch nystatin-tr 2021-0 Yes [id number] Apply to [facility] iamcinolone 7-06 area(s) 3 ity of cream 00:00: (three) [place] 00 times Medical daily. Branch nystatin-tr 1-0 Yes [id number] Apply to [facility] iainolone 7-06 area(s) 3 ity of cream 00:00: (three) [place] 00 times Medical daily. Branch nystatin-tr 1-0 Yes [id number] Apply to [facility] iainolone 7-06 area(s) 3 ity of cream 00:00: (three) [place] 00 times Medical daily. Branch nystatin-tr 2021-0 Yes [id number] Apply to [facility] iamcinolone 7-06 area(s) 3 ity of cream 00:00: (three) [place] 00 times Medical daily. Branch nystatin-tr 1-0 Yes [id number] Apply to [facility] iainolone 7-06 area(s) 3 ity of cream 00:00: (three) [place] 00 times Medical daily. Branch nystatin-tr 1-0 Yes [id number] Apply to [facility] iainolone 7-06 area(s) 3 ity of cream 00:00: (three) [place] 00 times Medical daily. Branch budesonide- 2020-0 202- No 1{puff} QD Inhale 1 [facility] formoteroL 6-25 06-[address] (SYMBICORT) 14:37: 00:00 morning. H ospita 160-4.5 02 :00 l mcg/actuati on inhaler hydrALAZINE 0 Yes [id number] 50mg Q.96136212 Take 1 [facility] (Apresoline 6-11 [id number] tablet (50 Health ) 50 MG 00:00: 3D mg total) tablet 00 by mouth 3 (three) times a day. hydrALAZINE 0 Yes [id number] 50mg Q.[id number] Take 1 [facility] (Apresoline 6-11 [id number] tablet (50 Health ) 50 MG 00:00: [...] % 00:00: ointment 00 nystatin 2020- No [id number] Q.25D Take 5 mL [facility] (MYCOSTATIN 10-06 [...] ia 4-10 (Same as: l 14:00: Norvasc) [place] 00 emtricitabi No Notes: Caesar lisa ne 200 MG / 4-10 (Same as: l tenofovir 14:00: Descovy) Herm ariel alafenamide 00 Non-formul 25 MG Oral nancy Tablet [Descovy] pantoprazol No Notes: [facility] lisa e 4-10 Tablet l 14:00: should not [place] 00 be chewed or crushed. (Same [...] e 4-10 Tablet l 14:00: should not [place] 00 be chewed or crushed. (Same [...] e 4-10 Tablet l 14:00: should not [place] 00 be chewed or crushed. (Same as: Protonix) Amiodarone No Notes: [facility] ia 4-10 (Same as: l 14:00: Cordarone) Amlodipine No Notes: [facility] 4-10 (Same as: l 14:00: Norvasc) [place] 00 emtricitabi No Notes: [facility] lisa ne 200 MG / 4-10 (Same as: l tenofovir 14:00: Descovy) Herm ariel alafenamide 00 Non-formul 25 MG Oral nancy Tablet [Descovy] Sertraline No Notes: [facility] ia 4-10 (Same as: l 14:00: Zoloft) [place] pantoprazol No Notes: [facility] lisa e 4-10 Tablet l 14:00: should not [place] 00 be chewed or crushed. (Same as: Protonix) Amiodarone No Notes: [facility] ia 4-10 (Same as: l 14:00: Cordarone) [place] Amlodipine No Notes: [facility] ia 4-10 (Same as: l 14:00: Norvasc) [place] emtricitabi No Notes: Caesar lisa ne [...] e 4-10 Tablet l 14:00: should not [place] 00 be chewed or crushed. (Same as: Protonix) Amiodarone No Notes: [facility] 4-10 (Same as: l 14:00: Cordarone) [place] 00 Amlodipine No Notes: [facility] 4-10 (Same as: l 14:00: Norvasc) emtricitabi No Notes: Caesar ilsa ne 200 MG / 4-10 (Same as: [...] M emoria 4-10 interfere l 02:00: w/enteral [place] feeds - Take 1 hr before [...] M emoria 4-10 interfere l 02:00: w/enteral [place] 00 feeds - Take 1 hr [...] 0.9% 4-10 (Same as: l 02:00: BD [place] Posiflush) Eliquis No Notes: [facility] 4-10 Same as: l 02:00: Eliquis [place] 00 Hydralazine No Notes: [facility] lisa [...] 0.9% 4-10 (Same as: l 02:00: BD [place] Posiflush) Eliquis No Notes: [facility] 4-10 [...] 0.9% 4-10 (Same as: l 02:00: BD [place] 00 Posiflush) Eliquis No Notes: [facility] 4-10 Same as: l 02:00: Eliquis [place] Hydralazine No Notes: Caesar lisa Hydrochlori 4-10 (Same as: l de 50 MG 02:00: Apresoline Her mitchell Oral Tablet 00 ) May interfere w/enteral feedings Take With Food Sucralfate No Notes: May M emoria 4-10 interfere l 02:00: w/enteral [place] 00 feeds - Take 1 hr [...] Memoria 4-10 Same as: l 02:00: Eliquis [place] Hydralazine No Notes: Caesar lisa Hydrochlori [...] not exceed l #3 00:12: 4gm/day of [place] acetaminop hen. (Same as: Tylenol with [...] not exceed l #3 00:12: 4gm/day of [place] acetaminop hen. (Same as: Tylenol with Codeine # 3) acetaminoph No Notes: Do M emoria en-codeine 4-10 not exceed l #3 00:12: 4gm/day of [place] acetaminop hen. (Same as: Tylenol with Codeine # 3) acetaminoph No Notes: Do M emoria en-codeine 4-10 not exceed l #3 00:12: 4gm/day of [place] acetaminop hen. (Same as: Tylenol with Codeine # 3) acetaminoph No Notes: Do M emoria en-codeine 4-10 not exceed l #3 00:12: 4gm/day of [place] 00 acetaminop hen. (Same as: Tylenol [...] tartrate - tab, l 22:00: Route: PO, [place] 00 Drug form: TAB, BID, Dosing [...] oria - tab, l 22:00: Route: PO, [place] 00 Drug form: TAB, BID, Dosing Weight 97.273, kg, Start date: 08/29/20 17:00:00 CDT, Duration: 30 day, Stop date: 09/28/20 9:00:00 CDT metoprolol 2021-0 No 100 mg, 1 Me moria tartrate 4-09 tab, l 22:00: Route: PO, [place] 00 Drug form: TAB, BID, Dosing [...] oria 4-09 tab, l 22:00: Route: PO, [place] 00 Drug form: TAB, BID, Dosing [...] tartrate 4-09 tab, l 22:00: Route: PO, [place] Drug form: TAB, BID, Dosing Weight [...] oria 4-09 tab, l 22:00: Route: PO, [place] Drug form: TAB, BID, Dosing Weight [...] tartrate 4-09 tab, l 22:00: Route: PO, [place] 00 Drug form: TAB, BID, Dosing [...] Notes: [facility] 4-09 (Same l 17:07: as:MORPhin [place] 00 e Sulfate) Morphine No Notes: [...] Notes: [facility] 4-09 (Same l 17:07: as:MORPhin [place] 00 e Sulfate) Morphine No Notes: [...] 30 tab, 0 coated Refill(s), tablet Pharmacy: [facility] 149, 162.56, cm, 08/29/20 5:30:00 CDT, Height, 97.273, kg, 08/29/20 5:30:00 CDT, Weight pantoprazol Yes 40 mg = 1 M emoria e 40 mg 4-09 tab, PO, l oral 15:27: Daily, # [place] enteric 00 30 tab, 0 coated Refill(s), tablet Pharmacy: [facility] 149, 162.56, cm, 08/29/20 5:30:00 CDT, Height, 97.273, kg, 08/29/20 5:30:00 CDT, Weight pantoprazol 2021-0 Yes 40 mg = 1 M emoria e 40 mg 4-09 tab, PO, l oral 15:27: Daily, # [place] enteric 00 30 tab, 0 coated Refill(s), tablet Pharmacy: [facility] 149, 162.56, cm, 08/29/20 5:30:00 CDT, Height, 97.273, kg, 08/29/20 5:30:00 CDT, Weight pantoprazol 2021-0 Yes 40 mg = 1 M emoria e 40 mg 4-09 tab, PO, l oral 15:27: Daily, # [place] enteric 00 30 tab, 0 coated Refill(s), tablet Pharmacy: [facility] 149, 162.56, cm, 08/29/20 5:30:00 CDT, Height, 97.273, kg, 08/29/20 5:30:00 CDT, Weight pantoprazol 2021-0 Yes 40 mg = 1 M emoria e 40 mg 4-09 tab, PO, l oral 15:27: Daily, # [place] enteric 00 30 tab, 0 coated Refill(s), tablet Pharmacy: [facility] 149, 162.56, cm, 08/29/20 5:30:00 CDT, Height, 97.273, kg, 08/29/20 5:30:00 CDT, Weight pantoprazol 2021-0 Yes 40 mg = 1 M emoria e 40 mg 4-09 tab, PO, l oral 15:27: Daily, # [place] enteric 00 30 tab, 0 coated Refill(s), tablet Pharmacy: [facility] 149, 162.56, cm, 08/29/20 5:30:00 CDT, Height, 97.273, kg, 08/29/20 5:30:00 CDT, Weight pantoprazol 2021-0 Yes 40 mg = 1 M emoria e 40 mg 4-09 tab, PO, l oral 15:27: Daily, # [place] enteric 00 30 tab, 0 coated Refill(s), tablet Pharmacy: [facility] 149, 162.56, cm, 08/29/20 5:30:00 CDT, Height, 97.273, kg, 08/29/20 5:30:00 CDT, Weight pantoprazol 2020-0 No 40 mg = 1 M emoria e 40 mg 4-09 tab, PO, l oral 15:26: Daily, # [place] enteric 00 30 tab, 0 coated Refill(s) tablet sucralfate 2020-0 Yes 1 gm = 1 Mem oria 1 g oral 4-09 tab, PO, l tablet 15:26: Q12H, # 28 Skylar nn 00 tab, 0 Refill(s), Pharmacy: [place] [id number], 162.56, cm, 08/29/20 5:30:00 CDT, Height, 97.273, kg, 08/29/20 5:30:00 CDT, Weight pantoprazol 2020-0 No 40 mg = 1 M emoria e 40 mg 4-09 tab, PO, l oral 15:26: Daily, # [place] enteric 00 30 tab, 0 coated Refill(s) tablet sucralfate 2020-0 Yes 1 gm = 1 Mem oria 1 g oral 4-09 tab, PO, l tablet 15:26: Q12H, # 28 Skyl[place] nn 00 tab, 0 Refill(s), Pharmacy: [place] [address], 162.56, cm, 08/29/20 5:30:00 CDT, Height, 97.273, kg, 08/29/20 5:30:00 CDT, Weight pantoprazol 2020-0 No 40 mg = 1 M emoria e 40 mg 4-09 tab, PO, l oral 15:26: Daily, # [place] enteric 00 30 tab, 0 coated Refill(s) tablet sucralfate 2020-0 Yes 1 gm = 1 Mem oria 1 g oral 4-09 tab, PO, l tablet 15:26: Q12H, # 28 Skyl[place] nn 00 tab, 0 Refill(s), Pharmacy: [place] [address], 162.56, cm, 08/29/20 5:30:00 CDT, Height, 97.273, [...] Skylar nn 00 tab, 0 Refill(s), Pharmacy: [place] [address], 162.56, cm, 08/29/20 5:30:00 CDT, Height, 97.273, kg, 08/29/20 5:30:00 CDT, Weight pantoprazol 2020-0 No 40 mg = 1 M emoria e 40 mg 4-09 tab, PO, l oral 15:26: Daily, # [place] enteric 00 30 tab, 0 coated Refill(s) tablet sucralfate 2020-0 Yes 1 gm = 1 Mem oria 1 g oral 4-09 tab, PO, l tablet 15:26: Q12H, # 28 [place]yl[place] nn 00 tab, 0 Refill(s), Pharmacy: [place] [address], 162.56, cm, 08/29/20 5:30:00 CDT, Height, 97.273, [...] Skylar nn 00 tab, 0 Refill(s), Pharmacy: [facility] 149, 162.56, cm, 08/29/20 [...] Skylar nn 00 tab, 0 Refill(s), Pharmacy: [facility] 149, 162.56, cm, 08/29/20 5:30:00 CDT, Height, 97.273, kg, 08/29/20 5:30:00 CDT, Weight Saline No Notes: Memoria Flush 0.9% 4-09 (Same as: l 15:25: BD [place] 00 Posiflush) Lorazepam No Notes: Memori a 4-09 (Same as: l 15:25: Ativan) [place] 00 Saline No Notes: [facility] Flush 0.9% 4-09 (Same as: l 15:25: BD [place] 00 Posiflush) Lorazepam No Notes: Memori a 4-09 (Same as: l 15:25: Ativan) [place] Saline No Notes: [facility] Flush 0.9% 4-09 (Same as: l 15:25: BD [place] 00 Posiflush) Saline No Notes: [facility] Flush 0.9% 4-09 (Same as: l 15:25: BD [place] 00 Posiflush) Lorazepam No Notes: Memori a 4-09 (Same as: l 15:25: Ativan) [place] Lorazepam No Notes: Memori a 4-09 (Same as: l 15:25: Ativan) [place] Saline No Notes: [facility] Flush 0.9% 4-09 (Same as: l 15:25: BD [place] 00 Posiflush) Lorazepam No Notes: Memori a 4-09 (Same as: l 15:25: Ativan) [place] Saline No Notes: [facility] Flush 0.9% 4-09 (Same as: l 15:25: BD [place] 00 Posiflush) Lorazepam No Notes: Memori [...] 08-29 Route: PO, l 14:01: Drug form: [place] 00 TAB, ONCE, Dosing Weight 97.273, [...] oria ne 08-29 Route: l 14:01: IVP, [place] 00 Q5Min, Dosing Weight 97.273, kg, [...] Memori a 08-29 Route: l 14:01: IVP, [place] 00 Q5Min, Dosing Weight 97.273, kg, [...] lisa 08-29 Route: l 14:01: IVP, PRN, [place] Dosing Weight 97.273, kg, PRN Benzodiaze pine Reversal, Initial dose, Start date: 08/29/20 9:01:00 CDT, Duration: 30 day, Stop date: 09/28/20 9:00:00 CDT Naloxone 1-0 No 0.4 mg, Memori a 08-29 Route: l 14:01: IVP, [place] 00 Q2MIN, Dosing Weight 97.273, kg, PRN Narcotic Reversal, Start date: 08/29/20 9:01:00 CDT, Duration: 8 doses or times, Stop date: Limited # of times Ondansetron 1-0 No 4 mg, Memor ia 08-29 Route: l 14:01: IVP, ONCE, [place] 00 Dosing Weight 97.273, kg, PRN [...] 08-29 Route: PO, l 14:01: Drug form: [place] 00 TAB, ONCE, Dosing Weight 97.273, [...] lisa 08-29 Route: l 14:01: IVP, PRN, [place] 00 Dosing Weight 97.273, kg, PRN [...] ia 08-29 Route: l 14:01: IVP, ONCE, [place] 00 Dosing Weight 97.273, kg, PRN Nausea & Vomiting, Start date: 08/29/20 9:01:00 CDT Labetalol 2021-0 No 10 mg, Memori a 08-29 Route: l 14:01: IVP, [place] 00 Q5Min, Dosing Weight 97.273, kg, [...] oria ne 08-29 Route: l 14:01: IVP, [place] 00 Q5Min, Dosing Weight 97.273, kg, [...] ia 08-29 Route: l 14:01: IVP, ONCE, [place] 00 Dosing Weight 97.273, kg, PRN [...] oria ne 08-29 Route: l 14:01: IVP, [place] 00 Q5Min, Dosing Weight 97.273, kg, [...] Memori a 08-29 Route: l 14:01: IVP, [place] 00 Q2MIN, Dosing Weight 97.273, kg, [...] Drug form: l 10 13:15: INJ, Start [place] microgram date: 08/29/20 8:15:00 CDT, Stop date: 08/29/20 9:15:00 CDT norepinephr 2020-0 No Route: IV, Memoria ine (ANES) 08-29 Drug form: l 10 13:15: INJ, Start [place] microgram date: 08/29/20 8:15:00 CDT, Stop [...] 4-09 Total l 0.9% IV 12:30: Volume: [place] (ANES) 1000 00 1,000, mL Start date: 08/29/20 7:30:00 CDT, Stop date: 08/29/20 8:30:00 CDT Sodium 2021-0 No Route: IV, Memor ia Chloride 4-09 Total l 0.9% IV 12:30: Volume: [place] (ANES) 1000 00 1,000, mL Start date: 08/29/20 7:30:00 CDT, Stop date: 08/29/20 8:30:00 CDT Sodium 2021-0 No Route: IV, Memor ia Chloride 4-09 Total l 0.9% IV 12:30: Volume: [place] (ANES) 1000 00 1,000, mL Start date: 08/29/20 7:30:00 CDT, Stop date: 08/29/20 8:30:00 CDT Sodium 2021-0 No Route: IV, Memor ia Chloride 4-09 Total l 0.9% IV 12:30: Volume: [place] (ANES) 1000 00 1,000, mL Start date: 08/29/20 7:30:00 CDT, Stop date: 08/29/20 8:30:00 CDT Sodium 2021-0 No Route: IV, Memor ia Chloride 4-09 Total l 0.9% IV 12:30: Volume: [place] (ANES) 1000 00 1,000, mL Start [...] PO, l Hydrochlori 11:42: Q24H, # 30 [place] de 150 MG 00 tab, 0 Extended Refill(s) Release Tablet 24 HR Yes 150 mg = 1 [facility] Bupropion 4-09 tab, PO, l Hydrochlori 11:42: Q24H, # 30 [place] de 150 MG 00 tab, 0 Extended Refill(s) Release Tablet 24 HR Yes 150 mg = 1 [facility] Bupropion 4-09 tab, PO, l Hydrochlori 11:42: Q24H, # 30 [place] de 150 MG 00 tab, 0 Extended Refill(s) Release Tablet 24 HR Yes 150 mg = 1 [facility] Bupropion 4-09 tab, PO, l Hydrochlori 11:42: Q24H, # 30 [place] de 150 MG 00 tab, 0 Extended Refill(s) Release Tablet 24 HR Yes 150 mg = 1 [facility] Bupropion 4-09 tab, PO, l Hydrochlori 11:42: Q24H, # 30 [place] de 150 MG 00 tab, 0 Extended Refill(s) Release Tablet 24 HR 2020-0 Yes 150 mg = 1 [facility] Bupropion 4-09 tab, PO, l Hydrochlori 11:42: Q24H, # 30 [place] de 150 MG 00 tab, 0 Extended Refill(s) Release Tablet 24 HR 2020-0 Yes 150 mg = 1 [facility] Bupropion 4-09 tab, PO, l Hydrochlori 11:42: Q24H, # 30 [place] de 150 MG 00 tab, 0 Extended Refill(s) Release Tablet apixaban 5 2020-0 Yes 5 mg, PO, Me [facility] MG Oral 4 Q12H, tab, l Tablet 11:41: 0 [place] [Eliquis] 00 Refill(s), For Atrial Fibrilatio n apixaban 5 2020-0 Yes 5 mg, PO, Me [place] MG Oral 08-29 Q12H, tab, l Tablet 11:41: 0 [place] [Eliquis] 00 Refill(s), For Atrial Fibrilatio n apixaban 5 2020-0 Yes 5 mg, PO, Me [place] MG Oral 08-29 Q12H, tab, l Tablet 11:41: 0 [place] [Eliquis] 00 Refill(s), For Atrial Fibrilatio n apixaban 5 2020-0 Yes 5 mg, PO, Me [place] MG Oral - Q12H, tab, l Tablet 11:41: 0 [place] [Eliquis] 00 Refill(s), For Atrial Fibrilatio n apixaban 5 2020-0 Yes 5 mg, PO, Me moria MG Oral 08-29 Q12H, tab, l Tablet 11:41: 0 [place] [Eliquis] 00 Refill(s), For Atrial Fibrilatio n apixaban 5 2020-0 Yes 5 mg, PO, Me [facility] MG Oral 4- Q12H, tab, l Tablet 11:41: 0 [place] [Eliquis] 00 Refill(s), For Atrial Fibrilatio n apixaban 5 2020-0 Yes 5 mg, PO, Me [facility] MG Oral 4- Q12H, tab, l Tablet 11:41: 0 [place] [Eliquis] 00 Refill(s), For Atrial Fibrilatio [...] tab, PO, l tablet 11:38: Daily, # [place] 00 90 tab, 3 Refill(s) AMIODarone 2020-0 Yes 200 mg = 1 M [place] 200 mg oral 4-09 tab, PO, l tablet 11:38: Daily, # [place] 00 90 tab, 3 Refill(s) AMIODarone 2020-0 Yes 200 mg = 1 M [place] 200 mg oral 4-09 tab, PO, l tablet 11:38: Daily, # [place] 00 90 tab, 3 Refill(s) AMIODarone 2020-0 Yes 200 mg = 1 M [place] 200 mg oral 4-09 tab, PO, l tablet 11:38: Daily, # [place] 00 90 tab, 3 Refill(s) normal No [...] Filled Immunization Date Status Comments [facility] e Immunization Name Name SARS-COV-2 COVID-19 [...] Completed Unive [facility] of PFIZER VACCINE 00:00:00 [facility] SARS-COV-2 COVID-19 2020-07-23 Completed [facility] of PFIZER VACCINE 00:00:00 [facility] SARS-COV-2 COVID-19 2020-07-23 Completed [facility] of PFIZER VACCINE 00:00:00 [facility] SARS-COV-2 COVID-19 2020-07-23 Completed [facility] of PFIZER VACCINE 00:00:00 [facility] SARS-COV-2 COVID-19 2020-07-23 Completed [facility] of PFIZER VACCINE 00:00:00 [facility] SARS-COV-2 COVID-19 2020-07-23 Completed [facility] of PFIZER VACCINE 00:00:00 [facility] SARS-COV-2 COVID-19 2020-07-23 Completed [facility] of PFIZER VACCINE 00:00:00 [facility] PFIZER COVID-19 2020-07-23 Completed [facility] VACCINATION 00:00:00 [facility] SARS-COV-2 COVID-19 2020-07-23 Completed [facility] of PFIZER VACCINE 00:00:00 [facility] SARS-COV-2 COVID-19 2020-07-23 Completed [facility] of PFIZER VACCINE 00:00:00 [facility] PFIZER COVID-19 2020-07-23 Completed [facility] MRNA VACCINATION 00:00:00 [facility] SARS-COV-2 COVID-19 2020-07-23 Completed [facility] of PFIZER VACCINE 00:00:00 [facility] SARS-COV-2 COVID-19 2020-07-23 Completed [facility] of PFIZER VACCINE 00:00:00 [facility] PFIZER COVID-19 2020-07-23 Completed [facility] MRNA VACCINATION 00:00:00 [facility] SARS-COV-2 COVID-19 2020-07-23 Completed [facility] of PFIZER VACCINE 00:00:00 [facility] SARS-COV-2 COVID-19 2020-07-23 Completed [facility] of PFIZER VACCINE 00:00:00 [facility] PFIZER COVID-19 2020-07-23 Completed [facility] MRNA VACCINATION 00:00:00 [facility] SARS-COV-2 COVID-19 2020-07-23 Completed [facility] of PFIZER VACCINE 00:00:00 [facility] SARS-COV-2 COVID-19 2020-07-23 Completed [facility] of PFIZER VACCINE 00:00:00 [facility] PFIZER COVID-19 2020-07-23 Completed [facility] MRNA VACCINATION 00:00:00 [facility] SARS-COV-2 COVID-19 2020-07-23 Completed [facility] of PFIZER VACCINE 00:00:00 [facility] PFIZER COVID-19 2020-07-23 Completed [facility] MRNA VACCINATION 00:00:00 [facility] SARS-COV-2 COVID-19 2020-07-23 Completed [facility] of PFIZER VACCINE 00:00:00 [facility] PFIZER COVID-19 2020-07-23 Completed [facility] MRNA VACCINATION 00:00:00 [facility] SARS-COV-2 COVID-19 2020-07-23 Completed [facility] of PFIZER VACCINE 00:00:00 [facility] PFIZER COVID-19 2020-07-23 Completed [facility] VACCINATION 00:00:00 [facility] PFIZER COVID-19 2020-07-23 Completed [facility] VACCINATION 00:00:00 [facility] PFIZER COVID-19 2020-07-23 Completed [facility] VACCINATION 00:00:00 [facility] PFIZER COVID-19 2020-07-23 Completed [facility] VACCINATION 00:00:00 [facility] PFIZER COVID-19 2020-07-23 Completed [facility] VACCINATION 00:00:00 [facility] PFIZER COVID-19 2020-07-23 Completed [facility] MRNA VACCINATION 00:00:00 [facility] PFIZER COVID-19 2020-07-23 Completed [facility] MRNA VACCINATION 00:00:00 [facility] PFIZER COVID-19 2020-07-23 Completed [facility] MRNA VACCINATION 00:00:00 [facility] PFIZER COVID-19 2020-07-23 Completed [facility] MRNA VACCINATION 00:00:00 [facility] PFIZER COVID-19 2020-07-23 Completed [facility] MRNA VACCINATION 00:00:00 [facility] PFIZER COVID-19 2020-07-23 Completed [facility] MRNA VACCINATION 00:00:00 [facility] PFIZER COVID-19 2020-07-23 Completed [facility] MRNA VACCINATION 00:00:00 [facility] PFIZER COVID-19 2020-07-23 Completed [facility] MRNA VACCINATION 00:00:00 [facility] PFIZER COVID-19 2020-07-23 Completed [facility] MRNA VACCINATION 00:00:00 [facility] PEG COVID-19 2020-07-23 Completed [facility] MRNA VACCINATION 00:00:00 [facility] PEG COVID-19 2020-07-23 Completed [facility] MRNA VACCINATION 00:00:00 [facility] PFIZER COVID-19 2020-07-23 Completed [facility] MRNA VACCINATION 00:00:00 [facility] PFIZER COVID-19 2020-07-23 Completed [facility] MRNA VACCINATION 00:00:00 [facility] PFIZER COVID-19 2020-07-23 Completed [facility] MRNA VACCINATION 00:00:00 [facility] PFIZER COVID-19 2020-07-23 Completed [facility] MRNA VACCINATION 00:00:00 [facility] PFIZER COVID-19 2020-07-23 Completed [facility] MRNA VACCINATION 00:00:00 [facility] PFIZER COVID-19 2020-07-23 Completed [facility] MRNA VACCINATION 00:00:00 [facility] PFIZER COVID-19 2020-07-23 Completed [facility] MRNA VACCINATION 00:00:00 [facility] PFIZER COVID-19 2020-07-23 Completed [facility] MRNA VACCINATION 00:00:00 [facility] PFIZER COVID-19 2020-07-23 Completed [facility] MRNA VACCINATION 00:00:00 [facility] PFIZER COVID-19 2020-07-23 Completed [facility] MRNA VACCINATION 00:00:00 [facility] PFIZER COVID-19 2020-07-23 Completed [facility] MRNA VACCINATION 00:00:00 [facility] PFIZER COVID-19 2020-07-23 Completed [facility] MRNA VACCINATION 00:00:00 [facility] PFIZER COVID-19 2020-07-23 Completed [facility] MRNA VACCINATION 00:00:00 [facility] PFIZER COVID-19 2020-07-23 Completed [facility] MRNA VACCINATION 00:00:00 [facility] PFIZER COVID-19 2020-07-23 Completed [facility] MRNA VACCINATION 00:00:00 [facility] PFIZER COVID-19 2020-07-23 Completed [facility] MRNA VACCINATION 00:00:00 [facility] PFIZER COVID-19 2020-07-23 Completed [facility] MRNA VACCINATION 00:00:00 [facility] PFIZER COVID-19 2020-07-23 Completed [facility] MRNA VACCINATION 00:00:00 [facility] PFIZER COVID-19 2020-07-23 Completed [facility] MRNA VACCINATION 00:00:00 [facility] PFIZER COVID-19 2020-07-23 Completed [facility] MRNA VACCINATION 00:00:00 [facility] PFIZER COVID-19 2020-07-23 Completed [facility] MRNA VACCINATION 00:00:00 [facility] PFIZER COVID-19 2020-07-23 Completed [facility] MRNA VACCINATION 00:00:00 [facility] PFIZER COVID-19 2020-07-23 Completed [facility] MRNA VACCINATION 00:00:00 [facility] PFIZER COVID-19 2020-07-23 Completed [facility] MRNA VACCINATION 00:00:00 [facility] PFIZER COVID-19 2020-07-23 Completed [facility] MRNA VACCINATION 00:00:00 [facility] PFIZER COVID-19 2020-07-23 Completed [facility] MRNA VACCINATION 00:00:00 [facility] PFIZER COVID-19 2020-07-23 Completed [facility] MRNA VACCINATION 00:00:00 [facility] PFIZER COVID-19 2020-07-23 Completed [facility] MRNA VACCINATION 00:00:00 [facility] PFIZER COVID-19 2020-07-23 Completed [facility] MRNA VACCINATION 00:00:00 [facility] PFIZER COVID-19 2020-07-23 Completed [facility] MRNA VACCINATION 00:00:00 [facility] PFIZER COVID-19 2020-07-23 Completed [facility] MRNA VACCINATION 00:00:00 [facility] PFIZER COVID-19 2020-07-23 Completed [facility] MRNA VACCINATION 00:00:00 [facility] PFIZER COVID-19 2020-07-23 Completed [facility] MRNA VACCINATION 00:00:00 [facility] PFIZER COVID-19 2020-07-23 Completed [facility] MRNA VACCINATION 00:00:00 [facility] PFIZER COVID-19 2020-07-23 Completed [facility] MRNA VACCINATION 00:00:00 [facility] PFIZER COVID-19 2020-07-23 Completed [facility] VACCINATION 00:00:00 [facility] PFIZER COVID-19 2020-07-23 Completed [facility] VACCINATION 00:00:00 [facility] PFIZER COVID-19 2020-07-23 Completed [facility] MRNA VACCINATION 00:00:00 [facility] SARS-COV-2 COVID-19 2020-07-02 Completed [facility] PFIZER VACCINE 00:00:00 [facility] SARS-COV-2 COVID-19 2020-07-02 Completed [facility] of PFIZER VACCINE 00:00:00 [facility] SARS-COV-2 COVID-19 2020-07-02 Completed [facility] of PFIZER VACCINE 00:00:00 [facility] SARS-COV-2 COVID-19 2020-07-02 Completed [facility] of PFIZER VACCINE 00:00:00 [facility] SARS-COV-2 COVID-19 2020-07-02 Completed [facility] of PFIZER VACCINE 00:00:00 [facility] SARS-COV-2 COVID-19 2020-07-02 Completed [facility] of PFIZER VACCINE 00:00:00 [facility] SARS-COV-2 COVID-19 2020-07-02 Completed [facility] of PFIZER VACCINE 00:00:00 [facility] SARS-COV-2 COVID-19 2020-07-02 Completed [facility] of PFIZER VACCINE 00:00:00 [facility] SARS-COV-2 COVID-19 2020-07-02 Completed [facility] of PFIZER VACCINE 00:00:00 [facility] SARS-COV-2 COVID-19 2020-07-02 Completed [facility] of PFIZER VACCINE 00:00:00 [facility] SARS-COV-2 COVID-19 2020-07-02 Completed [facility] of PFIZER VACCINE 00:00:00 [facility] SARS-COV-2 COVID-19 2020-07-02 Completed [facility] of PFIZER VACCINE 00:00:00 [facility] SARS-COV-2 COVID-19 2020-07-02 Completed [facility] of PFIZER VACCINE 00:00:00 [facility] SARS-COV-2 COVID-19 2020-07-02 Completed [facility] of PFIZER VACCINE 00:00:00 [facility] SARS-COV-2 COVID-19 2020-07-02 Completed [facility] of PFIZER VACCINE 00:00:00 [facility] SARS-COV-2 COVID-19 2020-07-02 Completed [facility] of PFIZER VACCINE 00:00:00 [facility] SARS-COV-2 COVID-19 2020-07-02 Completed [facility] of PFIZER VACCINE 00:00:00 [facility] SARS-COV-2 COVID-19 2020-07-02 Completed [facility] of PFIZER VACCINE 00:00:00 [facility] PFIZER COVID-19 2020-07-02 Completed [facility] MRNA VACCINATION [...] Completed [facility] MRNA VACCINATION 00:00:00 [facility] PEG COVID-19 2020-07-02 Completed [facility] MRNA VACCINATION [...] of Vaccine (3+ yrs) 00:00:00 [facility] Pneumococcal 13 2014-01-30 Completed [facility] of Conjugate, PCV13 00:00:00 [place] [facility] (Prevnar 13) [facility] Influenza Virus 2014-01-30 Completed [facility] Vaccine (3+ yrs) 00:00:00 [place] [facility] Pneumococcal 13 2014-01-30 Completed [facility] Conjugate, PCV13 00:00:00 [place] [facility] (Prevnar 13) [facility] Influenza Virus 2014-01-30 Completed [facility] of Vaccine (3+ yrs) 00:00:00 [place] [facility] Pneumococcal 13 2014-01-30 Completed [facility] of Conjugate, PCV13 00:00:00 [place] [facility] (Prevnar 13) [facility] Influenza Virus 2014-01-30 Completed [facility] of Vaccine (3+ yrs) 00:00:00 [place] [facility] Pneumococcal 13 2014-01-30 Completed [facility] of Conjugate, PCV13 00:00:00 [place] [facility] (Prevnar 13) [facility] Influenza Virus 2014-01-30 Completed [facility] Vaccine (3+ yrs) 00:00:00 [place] [facility] Pneumococcal 13 2014-01-30 Completed [facility] of Conjugate, PCV13 00:00:00 [place] [facility] (Prevnar 13) [facility] Influenza Virus 2014-01-30 Completed [facility] Vaccine (3+ yrs) 00:00:00 [place] [facility] Pneumococcal 13 2014-01-30 Completed [facility] of Conjugate, PCV13 00:00:00 [place] [facility] (Prevnar 13) [facility] Influenza Virus 2014-01-30 Completed [facility] Vaccine (3+ yrs) 00:00:00 [facility] Pneumococcal 13 2014-01-30 Completed [facility] of Conjugate, PCV13 00:00:00 [place] [facility] (Prevnar 13) [facility] Influenza Virus 2014-01-30 Completed [facility] Vaccine (3+ yrs) 00:00:00 [facility] Pneumococcal 13 2014-01-30 Completed [facility] of Conjugate, PCV13 00:00:00 [place] [facility] (Prevnar 13) [facility] Influenza Virus 2014-01-30 Completed [facility] Vaccine (3+ yrs) 00:00:00 [facility] Pneumococcal 13 2014-01-30 Completed [facility] of Conjugate, PCV13 00:00:00 [facility] (Prevnar 13) Branch Influenza Virus 2014-01-30 Completed [facility] of Vaccine (3+ yrs) 00:00:00 [facility] Pneumococcal 13 2014-01-30 Completed [facility] of Conjugate, PCV13 00:00:00 [place] [facility] (Prevnar 13) [facility] Influenza Virus 2014-01-30 Completed [facility] Vaccine (3+ yrs) 00:00:00 [place] [facility] Pneumococcal 13 2014-01-30 Completed [facility] Conjugate, PCV13 00:00:00 [place] [facility] (Prevnar 13) [facility] Influenza Virus 2014-01-30 Completed [facility] Vaccine (3+ yrs) 00:00:00 [place] [facility] Pneumococcal 13 2014-01-30 Completed [facility] Conjugate, PCV13 00:00:00 [place] [facility] (Prevnar 13) [facility] Influenza Virus 2014-01-30 Completed [facility] Vaccine (3+ yrs) 00:00:00 [facility] Pneumococcal 13 2014-01-30 Completed [facility] of Conjugate, PCV13 00:00:00 [facility] (Prevnar 13) Branch Influenza Virus 2014-01-30 Completed [facility] of Vaccine (3+ yrs) 00:00:00 [facility] Pneumococcal 13 2014-01-30 Completed [facility] of Conjugate, PCV13 00:00:00 [facility] (Prevnar 13) Branch Influenza Virus 2014-01-30 Completed [facility] Vaccine (3+ yrs) 00:00:00 [facility] Pneumococcal 13 2014-01-30 Completed [facility] of Conjugate, PCV13 00:00:00 [facility] (Prevnar 13) Branch Influenza Virus 2014-01-30 Completed [facility] of Vaccine (3+ yrs) 00:00:00 [facility] Pneumococcal 13 2014-01-30 Completed [facility] of Conjugate, PCV13 00:00:00 [facility] (Prevnar 13) Branch Influenza Virus 2014-01-30 Completed [facility] of Vaccine (3+ yrs) 00:00:00 [facility] Pneumococcal 13 2014-01-30 Completed [facility] of Conjugate, PCV13 00:00:00 [facility] (Prevnar 13) Branch Influenza Virus 2014-01-30 Completed [facility] of Vaccine (3+ yrs) 00:00:00 [facility] Pneumococcal 13 2014-01-30 Completed [facility] of Conjugate, PCV13 00:00:00 [facility] (Prevnar 13) Branch Influenza Virus 2014-01-30 Completed [facility] of Vaccine (3+ yrs) 00:00:00 [facility] Pneumococcal 13 2014-01-30 Completed [facility] of Conjugate, PCV13 00:00:00 [facility] (Prevnar 13) Branch Influenza Virus 2014-01-30 Completed [facility] of Vaccine (3+ yrs) 00:00:00 [facility] Pneumococcal 13 2014-01-30 Completed [facility] of Conjugate, PCV13 00:00:00 [facility] (Prevnar 13) Branch Influenza Virus 2014-01-30 Completed [facility] of Vaccine (3+ yrs) 00:00:00 [facility] Pneumococcal 13 2014-01-30 Completed [facility] of Conjugate, PCV13 00:00:00 [facility] (Prevnar 13) Branch Influenza Virus 2014-01-30 Completed [facility] Vaccine (3+ yrs) 00:00:00 [facility] Pneumococcal 13 2014-01-30 Completed [facility] of Conjugate, PCV13 00:00:00 [facility] (Prevnar 13) Branch Pneumococcal 2012-02-16 Completed [...] [facility] Hep B, Adol or Pedi 2011-09-01 Completed [facility]ive [facility] of Dosage 00:00:00 [facility] Hep B, Adol or Pedi 2011-09-01 Completed [facility]ive rsity of Dosage 00:00:00 [facility] Hep B, Adol or Pedi 2011-09-01 [...] [facility] Hep B, Adol or Pedi 2011-02-10 Completed [facility] of Dosage 00:00:00 [facility] Influenza Virus 2011-02-10 Completed [facility] Vaccine 00:00:00 [facility] Hep B, Adol or Pedi 2011-02-10 [...] [facility] Hep B, Adol or Pedi 2011-02-10 Completed [facility] of Dosage 00:00:00 [facility] Influenza Virus 2011-02-10 Completed [facility] Vaccine 00:00:00 [facility] Hep B, Adol or Pedi 2011-02-10 Completed [facility] of Dosage 00:00:00 [facility] Influenza Virus 2011-02-10 Completed [facility] Vaccine 00:00:00 [facility] Hep B, Adol or Pedi 2011-02-10 Completed [facility]ive [facility] of Dosage 00:00:00 [facility] Influenza Virus 2011-02-10 Completed [facility] Vaccine 00:00:00 [facility] Hep B, Adol or Pedi 2011-02-10 Completed [facility] of Dosage 00:00:00 [facility] Influenza Virus 2011-02-10 Completed [facility] Vaccine 00:00:00 [facility] Hep B, Adol or Pedi 2011-02-10 Completed [facility] of Dosage 00:00:00 [facility] Influenza Virus 2011-02-10 Completed [facility] of Vaccine 00:00:00 [facility] Hep B, Adol or Pedi 2011-02-10 [...] [facility] Hep B, Adol or Pedi 2011-02-10 Completed [facility] of Dosage 00:00:00 [facility] Influenza Virus 2011-02-10 Completed [facility] Vaccine 00:00:00 [facility] Hep B, Adol or Pedi 2011-02-10 Completed [facility] of Dosage 00:00:00 [facility] Influenza Virus 2011-02-10 Completed [facility] Vaccine 00:00:00 [facility] Hep B, Adol or Pedi 2011-02-10 Completed [facility] of Dosage 00:00:00 [facility] Influenza Virus 2011-02-10 Completed [facility] Vaccine 00:00:00 [facility] Hep B, Adol or Pedi 2011-02-10 Completed [facility] of Dosage 00:00:00 [facility] Influenza Virus 2011-02-10 Completed [facility] Vaccine 00:00:00 [facility] Hep B, Adol or Pedi 2011-02-10 [...] [facility] TDAP (ADACEL) 2010-11-18 Completed University of VACCINE 00:00:00 [facility] PPD (TB) 2010-11-18 Completed [facility] 00:00:00 [facility] TDAP (ADACEL) 2010-11-18 Completed University of VACCINE 00:00:00 [facility] PPD (TB) 2010-11-18 Completed [facility] of 00:00:00 [facility] TDAP (ADACEL) 2010-11-18 Completed [facility] of VACCINE 00:00:00 [facility] PPD (TB) 2010-11-18 Completed [facility] of 00:00:00 [facility] TDAP (ADACEL) 2010-11-18 Completed [facility] of VACCINE 00:00:00 [facility] PPD (TB) 2010-11-18 Completed [facility] of 00:00:00 [facility] TDAP (ADACEL) 2010-11-18 Completed [facility] of VACCINE 00:00:00 [facility] PPD (TB) 2010-11-18 Completed [facility] of 00:00:00 [facility] TDAP (ADACEL) 2010-11-18 Completed [facility] of VACCINE 00:00:00 [facility] PPD (TB) 2010-11-18 Completed [facility] of 00:00:00 [facility] TDAP (ADACEL) 2010-11-18 Completed University of VACCINE 00:00:00 [facility] PPD (TB) 2010-11-18 Completed [facility] of 00:00:00 [facility] TDAP (ADACEL) 2010-11-18 Completed [facility] of VACCINE 00:00:00 [facility] PPD (TB) 2010-11-18 Completed [facility] of 00:00:00 [facility] TDAP (ADACEL) 2010-11-18 Completed [facility] of VACCINE 00:00:00 [facility] PPD (TB) 2010-11-18 Completed [facility] of 00:00:00 [facility] TDAP (ADACEL) 2010-11-18 Completed [facility] of VACCINE 00:00:00 [facility] PPD (TB) 2010-11-18 Completed [facility] of 00:00:00 [facility] TDAP (ADACEL) 2010-11-18 Completed [facility] of VACCINE 00:00:00 [facility] PPD (TB) 2010-11-18 Completed [facility] of 00:00:00 [facility] TDAP (ADACEL) 2010-11-18 Completed [facility] of VACCINE 00:00:00 [facility] PPD (TB) 2010-11-18 Completed [facility] of 00:00:00 [facility] TDAP (ADACEL) 2010-11-18 Completed [facility] of VACCINE 00:00:00 [facility] HEPATITIS A 2004-03-02 Completed University of 00:00:00 [facility] HEPATITIS A 2004-03-02 Completed [facility] of 00:00:00 [facility] HEPATITIS A 2004-03-02 Completed [facility] of 00:00:00 [facility] HEPATITIS A 2004-03-02 Completed [facility] of 00:00:00 [facility] HEPATITIS A 2004-03-02 Completed [facility] of 00:00:00 [facility] HEPATITIS A 2004-03-02 Completed [facility] of 00:00:00 [facility] HEPATITIS A 2004-03-02 Completed [facility] of 00:00:00 [facility] HEPATITIS A 2004-03-02 Completed [facility] of 00:00:00 [facility] HEPATITIS A 2004-03-02 Completed [facility] of 00:00:00 [facility] HEPATITIS A 2004-03-02 Completed [facility] of 00:00:00 [facility] HEPATITIS A 2004-03-02 Completed University of 00:00:00 [facility] HEPATITIS A 2004-03-02 Completed University of 00:00:00 [facility] HEPATITIS A 2004-03-02 Completed [facility] of 00:00:00 [facility] HEPATITIS A 2004-03-02 Completed [facility] of 00:00:00 [facility] HEPATITIS A 2004-03-02 Completed [facility] of 00:00:00 [facility] HEPATITIS A 2004-03-02 Completed [facility] of 00:00:00 [facility] HEPATITIS A 2004-03-02 Completed [facility] of 00:00:00 [facility] HEPATITIS A 2004-03-02 Completed [facility] of 00:00:00 [facility] HEPATITIS A 2004-03-02 Completed [facility] of 00:00:00 [facility] HEPATITIS A 2004-03-02 Completed [facility] of 00:00:00 [facility] HEPATITIS A 2004-03-02 Completed [facility] of 00:00:00 [facility] HEPATITIS A 2004-03-02 Completed [facility] of 00:00:00 [facility] HEPATITIS A 2003-08-01 Completed [facility] of 00:00:00 [facility] HEPATITIS A 2003-08-01 Completed [facility] of 00:00:00 [facility] HEPATITIS A 2003-08-01 Completed [facility] of 00:00:00 [facility] HEPATITIS A 2003-08-01 Completed [facility] of 00:00:00 [facility] HEPATITIS A 2003-08-01 Completed University of 00:00:00 [facility] HEPATITIS A 2003-08-01 Completed University of 00:00:00 [facility] HEPATITIS A 2003-08-01 Completed University of 00:00:00 [facility] HEPATITIS A 2003-08-01 Completed [facility] of 00:00:00 [facility] HEPATITIS A 2003-08-01 Completed [facility] of 00:00:00 [facility] HEPATITIS A 2003-08-01 Completed [facility] of 00:00:00 [facility] HEPATITIS A 2003-08-01 Completed [facility] of 00:00:00 [facility] HEPATITIS A 2003-08-01 Completed [facility] of 00:00:00 [facility] HEPATITIS A 2003-08-01 Completed [facility] of 00:00:00 [facility] HEPATITIS A 2003-08-01 Completed [facility] of 00:00:00 [facility] HEPATITIS A 2003-08-01 Completed [facility] of 00:00:00 [facility] HEPATITIS A 2003-08-01 Completed [facility] of 00:00:00 [facility] HEPATITIS A 2003-08-01 Completed [facility] of 00:00:00 [facility] HEPATITIS A 2003-08-01 Completed [facility] of 00:00:00 [facility] HEPATITIS A 2003-08-01 Completed [facility] of 00:00:00 [facility] HEPATITIS A 2003-08-01 Completed University of [...] 22:00:00 159 mm[Hg] Univer sity of pressure [facility] Diastolic blood 2022-05-10 22:00:00 87 [...] /min University of Arterial blood by [place] [employer] [facility] Pulse oximetry Branch Body weight 2022-05-10 [...] /min University of Arterial blood by [place] [employer] [facility] P[facility] oxim[facility] Body temperature 2022-05-08 [...] /min University of Arterial blood by [place] [employer] [facility] Pulse oxim[facility] Branch Body temperature 2022-05-06 20:12:00 36.5 Amina [facility] Body height 2022-05-06 20:12:00 162.6 cm [facility] Body weight 2022-05-06 20:12:00 78.926 kg [facility] BMI 2022-05-06 20:12:00 29.87 kg/m2 Universi ty of [facility] Systolic blood 2022-04-22 19:50:00 156 mm[Hg] Univer [facility]ity [facility] pressure [facility] Diastolic blood 2022-04-22 19:50:00 89 mm[Hg] Unive rsity of pressure [facility] Heart rate 2022-04-22 19:50:00 69 /min Universi ty of [facility] Body temperature 2022-04-22 19:50:00 36.67 Amina Univ ersity of [facility] Respiratory rate 2022-04-22 19:50:00 17 /min Univ ersity of [facility] Body height 2022-04-22 19:50:00 162.6 cm [facility] Body weight 2022-04-22 19:50:00 80.74 kg [facility] BMI 2022-04-22 19:50:00 30.55 kg/m2 Universi ty of [facility] Oxygen saturation in 2022-04-22 19:50:00 96 /min University of Arterial blood by [facility] [place] [place] Pulse oximetry Branch Systolic blood 2022-03-05 15:23:00 167 mm[Hg] Univer sity of pressure [facility] Diastolic blood 2022-03-05 15:23:00 105 mm[Hg] Unive rsity of pressure [facility] Heart rate 2022-03-05 15:23:00 49 /min Universi ty of [facility] Body temperature 2022-03-05 15:18:00 36.67 Amina Univ ersity of [facility] Respiratory rate 2022-03-05 15:18:00 18 /min Univ ersity of [facility] Body height 2022-03-05 15:18:00 162.6 cm Universi ty of [facility] Body weight 2022-03-05 15:18:00 74.707 kg Universi ty of [facility] BMI 2022-03-05 15:18:00 28.27 kg/m2 [facility] Systolic blood 2022-02-16 21:41:00 169 mm[Hg] [facility] Diastolic blood 2022-02-16 21:41:00 86 mm[Hg] Unive rsity of pressure [facility] Heart rate 2022-02-16 21:41:00 51 /min Universi ty of [facility] Body temperature 2022-02-16 21:41:00 36.56 Amina Univ ersity of [facility] Respiratory rate 2022-02-16 21:41:00 17 /min Univ ersity of [facility] Oxygen saturation in 2022-02-16 21:41:00 98 /min University Arterial blood by [facility] [place] [place] Pulse oximetry Branch Body height 2022-02-11 16:02:00 162.6 cm Universi ty of [facility] Body weight 2022-02-11 16:02:00 79.379 kg [facility] [place] [facility] [place] BMI 2022-02-11 16:02:00 30.04 kg/m2 [facility] Systolic blood 2021-11-20 13:47:00 165 mm[Hg] Univer sity of pressure [facility] Diastolic blood 2021-11-20 13:47:00 83 mm[Hg] Unive rsity of pressure [facility] Heart rate 2021-11-20 13:47:00 58 /min Universi ty of [facility] Body temperature 2021-11-20 13:42:00 36.39 Amina Univ ersity of [facility] Respiratory rate 2021-11-20 13:42:00 16 /min [facility] Body height 2021-11-20 13:42:00 162.6 cm [facility] Body weight 2021-11-20 13:42:00 84.369 kg [facility] BMI 2021-11-20 13:42:00 31.93 kg/m2 Universi ty of [facility] Systolic blood 2021-07-14 15:18:00 142 mm[Hg] [...] 22:00:00 98 /min University Arterial blood by [facility] [place] [place] Pulse oximetry Branch Body weight 2022-05-10 16:29:00 [...] University of Arterial blood by [facility] [place] [place] Pulse oximetry Branch Systolic blood 2020-12-08 15:48:00 125 mm[Hg] [facility] pressure Diastolic blood 2020-12-08 15:48:00 76 mm[Hg] [facility] pressure Heart rate 2020-12-08 15:48:00 64 /min [facility] Body temperature 2020-12-08 15:48:00 36.61 Amina [facility] Respiratory rate 2020-12-08 15:48:00 17 /min [facility] Body height 2020-12-08 15:48:00 162.6 cm [facility] Body weight 2020-12-08 15:48:00 98.884 kg [facility] BMI 2020-12-08 15:48:00 37.42 kg/m2 [facility] Oxygen saturation in 2020-12-08 15:48:00 97 /min [facility] Arterial blood by Pulse oximetry Respitory Rate 2020-08-30 13:00:00 Memori al Marty Systolic (mm Hg) 2020-08-30 13:00:00 Caesar rial Marty Diastolic (mm Hg) 2020-08-30 13:00:00 Mem orial [place] Systolic (mm Hg) 2020-08-30 11:00:00 Caesar rial [facility] Diastolic (mm Hg) 2020-08-30 11:00:00 Mem orial [place] Temperature Oral (F) 2020-08-30 11:00:00 98.4 F [facility] Respitory Rate 2020-08-30 11:00:00 Memori al [place] Respitory Rate 2020-08-30 10:00:00 Memori al [facility] Systolic (mm Hg) 2020-08-30 10:00:00 Caesar rial Marty Diastolic (mm Hg) 2020-08-30 10:00:00 Mem orial [place] Temperature Oral (F) 2020-08-30 00:00:00 96.9 F [facility] Temperature Oral (F) 2020-08-29 11:26:00 97.6 F [facility] [place] Height 2020-08-29 10:30:00 162.56 cm [facility] [place] Weight 2020-08-29 10:30:00 [facility] BMI Calculated 2020-08-29 10:30:00 Darien Hammond Procedures Procedure Date / Time Performing Clinician Source Performed URINALYSIS 2022-05-10 19:36:00 Home Matthews [facility] TROPONIN I 2022-05-10 18:34:00 Home Matthews [facility] COMP. METABOLIC PANEL 2022-05-10 18:34:00 Home Matthews [facility] ([id number]) [facility] [place] [facility] CBC WITH DIFF 2022-05-10 18:34:00 Home Matthews [facility] XR CHEST 2 VW 2022-05-10 17:24:58 Byron Home [facility] CONSENT/REFUSAL FOR 2022-05-10 16:26:23 Doctor Unaeunice, [facility] DIAGNOSIS AND TREATMENT Sundance [facility] CONSENT/REFUSAL FOR 2022-05-10 16:26:09 Doctor Unasimone, [facility] DIAGNOSIS AND TREATMENT Sundance [facility] URINALYSIS 2022-05-08 22:43:[address] [facility] XR CHEST 2 VW 2022-05-06 22:56:53 Anette Olea [facility] COMP. METABOLIC PANEL 2022-05-06 22:14:00 Anette Olea [facility] ([id number]) Medical Branch CBC WITH DIFF 2022-05-06 22:14:00 Anette Olea [facility] COVID-19 (ID NOW RAPID 2022-05-06 22:14:00 Anette Olea [facility] TESTING) Medical Branch BASIC METABOLIC PANEL (NA, 2022-04-22 21:23:00 Paulette Gray [facility] K, CL, CO2, GLUCOSE, BUN, Medica l Branch CREATININE, CA) CBC WITH DIFF 2022-04-22 21:23:00 Paulette Gray [place] [facility] CONSENT/REFUSAL FOR 2022-04-22 19:45:46 Doctor Unasseunice [facility] DIAGNOSIS AND TREATMENT Sund[place] [facility] SARS-COV-2 COVID-19 2022-03-05 16:09:27 [facility] DIMITRIS-SUCROSE VACCINE 12 [facility] [place] YRS+, BIVALENT 0.3ML, IM, (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) FLU 2022-03-05 16:09:27 [facility] VACC(),65+YR,0.5 Medica l Branch ML,IM,ADJUVANTED,QUAD(FLUA D) FLU 2022-03-05 16:09:27 [facility] VACC(),65+YR,0.5 Medica l Branch ML,IM,ADJUVANTED,QUAD(FLUA D) SARS-COV-2 COVID-19 2022-03-05 16:09:27 [facility] DIMITRIS-SUCROSE VACCINE 12 [facility] YRS+, BIVALENT 0.3ML, IM, (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) MAGNESIUM 2022-02-15 09:41:00 Radha Sofia [facility] BASIC METABOLIC PANEL (NA, 2022-02-15 09:41:00 Radha [facility] K, CL, CO2, GLUCOSE, BUN, Medica l Branch CREATININE, CA) CBC WITH DIFF 2022-02-15 09:41:00 Radha [facility] N-TERMINAL PRO-BNP 2022-02-15 09:41:00 Sofia Garcia [facility] CBC WITH DIFF 2022-02-15 09:41:00 Sofia Garcia [facility] BASIC METABOLIC PANEL (NA, 2022-02-15 09:41:00 Sofia Garcia [facility] K, CL, CO2, GLUCOSE, BUN, Medica l Branch CREATININE, CA) MAGNESIUM 2022-02-15 09:41:00 Radha [facility] N-TERMINAL PRO-BNP 2022-02-15 09:41:00 Sofia Garcia [facility] BASIC METABOLIC PANEL (NA, 2022-02-13 09:40:00 Sofia Garcia [facility] K, CL, CO2, GLUCOSE, BUN, Medica l Branch CREATININE, CA) CBC WITH DIFF 2022-02-13 09:40:00 Radha [facility] BASIC METABOLIC PANEL (NA, 2022-02-13 09:40:00 Radha [facility] K, CL, CO2, GLUCOSE, BUN, Medica l Branch CREATININE, CA) CBC WITH DIFF 2022-02-13 09:40:00 Radha [facility] TROPONIN I 2022-02-11 23:41:00 Radha [facility] N-TERMINAL PRO-BNP 2022-02-11 23:41:00 [facility] 2022-02-11 23:41:00 Radha [facility] N-TERMINAL PRO-BNP 2022-02-11 23:41:00 Radha [facility] HB ECG ROUTINE & RHYTHM 2022-02-11 22:15:36 Sofia Garcia [facility] TRANSTHORACIC ECHO (TTE) 2022-02-11 21:26:50 [facility] 2022-02-11 21:26:50 Sofia Garcia [facility] CT ABDOMEN PELVIS W 2022-02-11 07:45:[address] [facility] CT ABDOMEN PELVIS W 2022-02-11 07:45:43 Miguelangel Reilly [facility] RAPID INFLUENZA A/B 2022-02-11 06:54:00 Reilly Means [facility] RAPID INFLUENZA A/B 2022-02-11 06:54:00 Reilly Means [facility] URINALYSIS 2022-02-11 06:45:00 Reilly Means [facility] URINE CULTURE 2022-02-11 06:45:00 Reilly Means [facility] URINALYSIS 2022-02-11 06:45:00 Reilly Means [facility] URINE CULTURE 2022-02-11 06:45:00 Reilly Means [facility] HB ECG ROUTINE & RHYTHM 2022-02-11 05:22:08 Reilly Means [facility] HB ECG ROUTINE & RHYTHM 2022-02-11 05:22:08 Reilly Means [facility] STRIP [facility] BLOOD CULTURE SCREEN 2022-02-11 04:58:00 Reilly Means [facility] TROPONIN I 2022-02-11 04:58:00 Reilly Means [facility] COMP. METABOLIC PANEL 2022-02-11 04:58:00 Reilly Means [facility] ([id number]) Medical Branch CBC WITH DIFF 2022-02-11 04:58:00 Reilly Means [facility] PROTHROMBIN TIME / INR 2022-02-11 04:58:00 Reilly Means [facility] ACTIVATED PARTIAL THRMPLAS 2022-02-11 04:58:00 Reilly Means [facility] N-TERMINAL PRO-BNP 2022-02-11 04:58:[address] [facility] LACTIC ACID WHOLE BLOOD 2022-02-11 04:58:00 Reilly Means [facility] COVID-19 (ID NOW RAPID 2022-02-11 04:58:00 Reilly Means [facility] TESTING) Medical Branch LAB ONLY COVID 2022-02-11 04:58:00 Reilly Means [facility] CBC WITH DIFF 2022-02-11 04:58:00 Reilly Means [facility] ACTIVATED PARTIAL THRMPLAS 2022-02-11 04:58:00 Reilly Means [facility] PROTHROMBIN TIME / INR 2022-02-11 04:58:00 Reilly Means [facility] COVID-19 (ID NOW RAPID 2022-02-11 04:58:00 Reilly Means [facility] TESTING) Medical Branch COMP. METABOLIC PANEL 2022-02-11 04:58:00 Reilly Means [facility] ([id number]) Medical Branch TROPONIN I 2022-02-11 04:58:00 Reilly Means [facility] N-TERMINAL PRO-BNP 2022-02-11 04:58:[address] [facility] BLOOD CULTURE SCREEN 2022-02-11 04:58:00 Reilly Means [facility] LACTIC ACID WHOLE BLOOD 2022-02-11 04:58:00 Reilly Means [facility] LAB ONLY COVID 2022-02-11 04:58:00 Reilly Means [facility] XR CHEST 1 VW 2022-02-11 04:27:42 Miguelangel Reilly [facility] XR CHEST 1 VW 2022-02-11 04:27:42 Reilly Means [facility] HOSPITAL ADMISSION 2022-02-10 05:01:00 Doctor Unassigned, [facility] Sundance [facility] HOSPITAL ADMISSION 2022-02-10 05:01:00 Doctor Unassigned, [facility] ECG 12-LEAD 2021-07-14 15:14:00 Elan Lira [facility] [id number] 2021-06-17 00:00:00 [facility] GASTROINTESTINAL PANEL 2020-12-08 22:21:00 Eliseo Arce [facility] XR ABDOMEN 1 VW 2020-12-08 18:06:32 Eliseo Arce [facility] [place] < 1 HOUR 2020-09-05 22:39:00 Eliseo Arce [facility] SURGICAL PATHOLOGY REQUEST 2020-09-05 21:54:00 Eliseo Arce [facility] XR CHEST 1 VW PORTABLE 2020-09-05 19:55:00 [facility] DISCHARGE PATIENT 2020-09-05 17:27:55 Lucas Harris [facility] MO AN ELECTIVE 2020-09-05 16:47:[facility], INTRAOPERATIVE 2020-09-05 16:27:00 [facility] 2020-09-05 15:04:00 Sarai Maharaj [facility] TIME (PTT) M. PROTHROMBIN TIME WITH INR 2020-09-05 15:04:00 Midny Maharaj [facility] MChelsie Plan of Care Planned Activity Planned Date Details Comments Source Future Scheduled 2022-12-23 [facility] Test 06:27:39 malignant neoplasm of colon (procedure) [code = 418716255] Future Scheduled 2022-12-23 [facility] Test 06:27:39 malignant neoplasm of colon (procedure) [code = 868087789] Future Scheduled 2022-12-23 [facility] Test 06:27:39 malignant neoplasm of colon (procedure) [code = 336711233] Future Scheduled 2022-12-23 SHINGLES VACCINES (1 Met [facility] Test 06:27:39 of 2) [code = SHINGLES VACCINES (1 of 2)] Future Scheduled 2022-12-23 BREAST CANCER [facility] Test 06:27:39 SCREENING [code = BREAST CANCER SCREENING] Future Scheduled 2022-12-23 [facility] Test 06:27:39 malignant neoplasm of colon (procedure) [code = 408262635] Future Scheduled 2022-12-23 [facility] Test 06:27:39 malignant neoplasm of colon (procedure) [code = 615465136] Future Scheduled 2022-12-23 HEPATITIS B VACCINES [facility] Test 06:27:39 (1 of 3 - Risk 3-dose series) [code = HEPATITIS B VACCINES (1 of 3 - Risk 3-dose series)] Future Scheduled 2022-12-23 COVID-19 VACCINE (3 - [facility] Test 06:27:39 Pfizer series) [code = COVID-19 VACCINE (3 - Pfizer series)] Future Scheduled 2022-12-23 65+ PNEUMOCOCCAL [facility] Test 06:27:39 VACCINE (4 - PPSV23 if available, else PCV20) [code = 65+ PNEUMOCOCCAL VACCINE (4 - PPSV23 if available, else PCV20)] Future Scheduled 2022-12-23 INFLUENZA VACCINE Method [facility] Test 06:27:39 [code = INFLUENZA VACCINE] Future Scheduled 2022-12-23 [facility] Test 06:27:39 malignant neoplasm of colon (procedure) [code = 319587755] Future Scheduled 2022-12-23 [facility] Test 06:27:39 malignant neoplasm of colon (procedure) [code = 969514638] Future Scheduled 2022-12-23 [facility] Test 06:27:39 malignant neoplasm of colon (procedure) [code = 858806914] Future Scheduled 2022-12-23 SHINGLES VACCINES (1 [facility] Test 06:27:39 of 2) [code = SHINGLES VACCINES (1 of 2)] Future Scheduled 2022-12-23 BREAST CANCER [facility] Test 06:27:39 SCREENING [code = BREAST CANCER SCREENING] Future Scheduled 2022-12-23 Screening for [facility] Test 06:27:39 malignant neoplasm of colon (procedure) [code = 924238301] Future Scheduled 2022-12-23 Screening for [facility] Test 06:27:39 malignant neoplasm of colon (procedure) [code = 729973130] Future Scheduled 2022-12-23 HEPATITIS B VACCINES [facility] Test 06:27:39 (1 of 3 - Risk 3-dose series) [code = HEPATITIS B VACCINES (1 of 3 - Risk 3-dose series)] Future Scheduled 2022-12-23 COVID-19 VACCINE (3 - Me [facility] Test 06:27:39 Pfizer series) [code = COVID-19 VACCINE (3 - Pfizer series)] Future Scheduled 2022-12-23 65+ PNEUMOCOCCAL [facility] Test 06:27:39 VACCINE (4 - PPSV23 if available, else PCV20) [code = 65+ PNEUMOCOCCAL VACCINE (4 - PPSV23 if available, else PCV20)] Future Scheduled 2022-12-23 INFLUENZA VACCINE Method [facility] Test 06:27:39 [code = INFLUENZA VACCINE] Future Scheduled 2022-12-23 Screening for [facility] Test 06:27:39 malignant neoplasm of colon (procedure) [code = 892529646] Future Scheduled 2022-12-23 Screening for [facility] Test 06:27:39 malignant neoplasm of colon (procedure) [code = 575917359] Future Scheduled 2022-12-23 Screening for [facility] Test 06:27:39 malignant neoplasm of colon (procedure) [code = 559299761] Future Scheduled 2022-12-23 SHINGLES VACCINES (1 [facility] Test 06:27:39 of 2) [code = SHINGLES VACCINES (1 of 2)] Future Scheduled 2022-12-23 BREAST CANCER [facility] Test 06:27:39 SCREENING [code = BREAST CANCER SCREENING] Future Scheduled 2022-12-23 Screening for [facility] Test 06:27:39 malignant neoplasm of colon (procedure) [code = 734890889] Future Scheduled 2022-12-23 Screening for [facility] Test 06:27:39 malignant neoplasm of colon (procedure) [code = 759917683] Future Scheduled 2022-12-23 HEPATITIS B VACCINES [facility] Test 06:27:39 (1 of 3 - Risk 3-dose series) [code = HEPATITIS B VACCINES (1 of 3 - Risk 3-dose series)] Future Scheduled 2022-12-23 COVID-19 VACCINE (3 - Me [facility] Test 06:27:39 Pfizer series) [code = COVID-19 VACCINE (3 - Pfizer series)] Future Scheduled 2022-12-23 65+ PNEUMOCOCCAL [facility] Test 06:27:39 VACCINE (4 - PPSV23 if available, else PCV20) [code = 65+ PNEUMOCOCCAL VACCINE (4 - PPSV23 if available, else PCV20)] Future Scheduled 2022-12-23 INFLUENZA VACCINE Method [facility] Test 06:27:39 [code = INFLUENZA VACCINE] Future Scheduled 2022-12-13 Screening for [facility] Test 16:46:16 malignant neoplasm of colon (procedure) [code = 288066855] Future Scheduled 2022-12-13 Screening for [facility] Test 16:46:16 malignant neoplasm of colon (procedure) [code = 032118465] Future Scheduled 2022-12-13 Screening for [facility] Test 16:46:16 malignant neoplasm of colon (procedure) [code = 404162043] Future Scheduled 2022-12-13 SHINGLES VACCINES (1 [facility] Test 16:46:16 of 2) [code = SHINGLES VACCINES (1 of 2)] Future Scheduled 2022-12-13 BREAST CANCER [facility] Test 16:46:16 SCREENING [code = BREAST CANCER SCREENING] Future Scheduled 2022-12-13 Screening for [facility] Test 16:46:16 malignant neoplasm of colon (procedure) [code = 921760650] Future Scheduled 2022-12-13 Screening for [facility] Test 16:46:16 malignant neoplasm of colon (procedure) [code = 967127415] Future Scheduled 2022-12-13 HEPATITIS B VACCINES [facility] Test 16:46:16 (1 of 3 - Risk 3-dose series) [code = HEPATITIS B VACCINES (1 of 3 - Risk 3-dose series)] Future Scheduled 2022-12-13 COVID-19 VACCINE (3 - Me [facility] Test 16:46:16 Pfizer series) [code = COVID-19 VACCINE (3 - Pfizer series)] Future Scheduled 2022-12-13 65+ PNEUMOCOCCAL [facility] Test 16:46:16 VACCINE (4 - PPSV23 if available, else PCV20) [code = 65+ PNEUMOCOCCAL VACCINE (4 - PPSV23 if available, else PCV20)] Future Scheduled 2022-12-13 INFLUENZA VACCINE Method [facility] Test 16:46:16 [code = INFLUENZA VACCINE] Future Scheduled 2022-12-13 Screening for [facility] Test 16:46:16 malignant neoplasm of colon (procedure) [code = 427017175] Future Scheduled 2022-12-13 Screening for [facility] Test 16:46:16 malignant neoplasm of colon (procedure) [code = 734810644] Future Scheduled 2022-12-13 Screening for [facility] Test 16:46:16 malignant neoplasm of colon (procedure) [code = 756030836] Future Scheduled 2022-12-13 SHINGLES VACCINES (1 [facility] Test 16:46:16 of 2) [code = SHINGLES VACCINES (1 of 2)] Future Scheduled 2022-12-13 BREAST CANCER [facility] Test 16:46:16 SCREENING [code = BREAST CANCER SCREENING] Future Scheduled 2022-12-13 Screening for [facility] Test 16:46:16 malignant neoplasm of colon (procedure) [code = 576189973] Future Scheduled 2022-12-13 Screening for [facility] Test 16:46:16 malignant neoplasm of colon (procedure) [code = 779462143] Future Scheduled 2022-12-13 HEPATITIS B VACCINES [facility] Test 16:46:16 (1 of 3 - Risk 3-dose series) [code = HEPATITIS B VACCINES (1 of 3 - Risk 3-dose series)] Future Scheduled 2022-12-13 COVID-19 VACCINE (3 - [facility] Test 16:46:16 Pfizer series) [code = COVID-19 VACCINE (3 - Pfizer series)] Future Scheduled 2022-12-13 65+ PNEUMOCOCCAL [facility] Test 16:46:16 VACCINE (4 - PPSV23 if available, else PCV20) [code = 65+ PNEUMOCOCCAL VACCINE (4 - PPSV23 if available, else PCV20)] Future Scheduled 2022-12-13 [facility] VACCINE [facility] 16:46:16 [code = INFLUENZA VACCINE] Future Scheduled 2022-12-13 Screening for [facility] Test 16:46:16 malignant neoplasm of colon (procedure) [code = [id number]] Future Scheduled 2022-12-13 [facility] 16:46:16 malignant neoplasm of colon (procedure) [code = 364510166] Future Scheduled 2022-12-13 [facility] Test 16:46:16 malignant neoplasm of colon (procedure) [code = 971304268] Future Scheduled 2022-12-13 SHINGLES VACCINES (1 [facility] Test 16:46:16 of 2) [code = SHINGLES VACCINES (1 of 2)] Future Scheduled 2022-12-13 BREAST CANCER [facility] Test 16:46:16 SCREENING [code = BREAST CANCER SCREENING] Future Scheduled 2022-12-13 Screening for [facility] Test 16:46:16 malignant neoplasm of colon (procedure) [code = [id number]] Future Scheduled 2022-12-13 Screening for [facility] Test 16:46:16 malignant neoplasm of colon (procedure) [code = [id number]] Future Scheduled 2022-12-13 HEPATITIS B VACCINES [facility] Test 16:46:16 (1 of 3 - Risk 3-dose series) [code = HEPATITIS B VACCINES (1 of 3 - Risk 3-dose series)] Future Scheduled 2022-12-13 COVID-19 VACCINE (3 - [facility] Test 16:46:16 Pfizer series) [code = COVID-19 VACCINE (3 - Pfizer series)] Future Scheduled 2022-12-13 65+ [facility]:16 VACCINE (4 - PPSV23 if available, else PCV20) [code = 65+ PNEUMOCOCCAL VACCINE (4 - PPSV23 if available, else PCV20)] Future Scheduled 2022-12-13 INFLUENZA VACCINE Method [facility] Test 16:46:16 [code = INFLUENZA VACCINE] Future Scheduled 2022-11-11 Screening for [facility] Test 09:27:47 malignant neoplasm of colon (procedure) [code = [id number]] Future Scheduled 2022-11-11 Screening for [facility] Test 09:27:47 malignant neoplasm of colon (procedure) [code = 388484923] Future Scheduled 2022-11-11 Screening for [facility] Test 09:27:47 malignant neoplasm of colon (procedure) [code = 343753202] Future Scheduled 2022-11-11 SHINGLES VACCINES (1 [facility] Test 09:27:47 of 2) [code = SHINGLES VACCINES (1 of 2)] Future Scheduled 2022-11-11 BREAST CANCER [facility] Test 09:27:47 SCREENING [code = BREAST CANCER SCREENING] Future Scheduled 2022-11-11 Screening for [facility] Test 09:27:47 malignant neoplasm of colon (procedure) [code = 406138589] Future Scheduled 2022-11-11 Screening for [facility] Test 09:27:47 malignant neoplasm of colon (procedure) [code = 931252676] Future Scheduled 2022-11-11 HEPATITIS B VACCINES [facility] Test 09:27:47 (1 of 3 - Risk 3-dose series) [code = HEPATITIS B VACCINES (1 of 3 - Risk 3-dose series)] Future Scheduled 2022-11-11 COVID-19 VACCINE (3 - [facility] Test 09:27:47 Pfizer series) [code = COVID-19 VACCINE (3 - Pfizer series)] Future Scheduled 2022-11-11 65+ PNEUMOCOCCAL [facility] Test 09:27:47 VACCINE (4 - PPSV23 if available, else PCV20) [code = 65+ PNEUMOCOCCAL VACCINE (4 - PPSV23 if available, else PCV20)] Future Scheduled 2022-11-11 INFLUENZA VACCINE Method [facility] Test 09:27:47 [code = INFLUENZA VACCINE] Future Scheduled 2022-11-11 Screening for [facility] Test 09:27:47 malignant neoplasm of colon (procedure) [code = 116563313] Future Scheduled 2022-11-11 Screening for [facility] Test 09:27:47 malignant neoplasm of colon (procedure) [code = 705945697] Future Scheduled 2022-11-11 Screening for [facility] Test 09:27:47 malignant neoplasm of colon (procedure) [code = 434639382] Future Scheduled 2022-11-11 SHINGLES VACCINES (1 [facility] Test 09:27:47 of 2) [code = SHINGLES VACCINES (1 of 2)] Future Scheduled 2022-11-11 BREAST CANCER [facility] Test 09:27:47 SCREENING [code = BREAST CANCER SCREENING] Future Scheduled 2022-11-11 Screening for [facility] Test 09:27:47 malignant neoplasm of colon (procedure) [code = 178769894] Future Scheduled 2022-11-11 Screening for [facility] Test 09:27:47 malignant neoplasm of colon (procedure) [code = 040930223] Future Scheduled 2022-11-11 HEPATITIS B VACCINES [facility] Test 09:27:47 (1 of 3 - Risk 3-dose series) [code = HEPATITIS B VACCINES (1 of 3 - Risk 3-dose series)] Future Scheduled 2022-11-11 COVID-19 VACCINE (3 - [facility] Test 09:27:47 Pfizer series) [code = COVID-19 VACCINE (3 - Pfizer series)] Future Scheduled 2022-11-11 65+ PNEUMOCOCCAL [facility] Test 09:27:47 VACCINE (4 - PPSV23 if available, else PCV20) [code = 65+ PNEUMOCOCCAL VACCINE (4 - PPSV23 if available, else PCV20)] Future Scheduled 2022-11-11 INFLUENZA VACCINE Method [facility] Test 09:27:47 [code = INFLUENZA VACCINE] Future Scheduled 2022-11-11 Screening for [facility] Test 09:27:47 malignant neoplasm of colon (procedure) [code = 141973398] Future Scheduled 2022-11-11 Screening for [facility] Test 09:27:47 malignant neoplasm of colon (procedure) [code = 061570729] Future Scheduled 2022-11-11 Screening for [facility] Test 09:27:47 malignant neoplasm of colon (procedure) [code = 453178914] Future Scheduled 2022-11-11 SHINGLES VACCINES (1 [facility] Test 09:27:47 of 2) [code = SHINGLES VACCINES (1 of 2)] Future Scheduled 2022-11-11 BREAST CANCER [facility] Test 09:27:47 SCREENING [code = BREAST CANCER SCREENING] Future Scheduled 2022-11-11 Screening for [facility] Test 09:27:47 malignant neoplasm of colon (procedure) [code = 490479363] Future Scheduled 2022-11-11 Screening for [facility] Test 09:27:47 malignant neoplasm of colon (procedure) [code = 430583165] Future Scheduled 2022-11-11 HEPATITIS B VACCINES [facility] Test 09:27:47 (1 of 3 - Risk 3-dose series) [code = HEPATITIS B VACCINES (1 of 3 - Risk 3-dose series)] Future Scheduled 2022-11-11 COVID-19 VACCINE (3 - [facility] Test 09:27:47 Pfizer series) [code = COVID-19 VACCINE (3 - Pfizer series)] Future Scheduled 2022-11-11 65+ [facility] 09:27:47 VACCINE (4 - PPSV23 if available, else PCV20) [code = 65+ PNEUMOCOCCAL VACCINE (4 - PPSV23 if available, else PCV20)] Future Scheduled 2022-11-11 INFLUENZA VACCINE Method [facility] Test 09:27:47 [code = INFLUENZA VACCINE] Future Scheduled 2022-10-27 Screening for [facility] Test 22:40:19 malignant neoplasm of colon (procedure) [code = 033158035] Future Scheduled 2022-10-27 Screening for [facility] Test 22:40:19 malignant neoplasm of colon (procedure) [code = 066098606] Future Scheduled 2022-10-27 Screening for [facility] Test 22:40:19 malignant neoplasm of colon (procedure) [code = 907245796] Future Scheduled 2022-10-27 SHINGLES VACCINES (1 [facility] Test 22:40:19 of 2) [code = SHINGLES VACCINES (1 of 2)] Future Scheduled 2022-10-27 BREAST CANCER [facility] Test 22:40:19 SCREENING [code = BREAST CANCER SCREENING] Future Scheduled 2022-10-27 Screening for [facility] Test 22:40:19 malignant neoplasm of colon (procedure) [code = 389761257] Future Scheduled 2022-10-27 Screening for [facility] Test 22:40:19 malignant neoplasm of colon (procedure) [code = 744367322] Future Scheduled 2022-10-27 HEPATITIS B VACCINES [facility] Test 22:40:19 (1 of 3 - Risk 3-dose series) [code = HEPATITIS B VACCINES (1 of 3 - Risk 3-dose series)] Future Scheduled 2022-10-27 COVID-19 VACCINE (3 - [facility] Test 22:40:19 Pfizer series) [code = COVID-19 VACCINE (3 - Pfizer series)] Future Scheduled 2022-10-27 65+ PNEUMOCOCCAL [facility] Test 22:40:19 VACCINE (4 - PPSV23 if available, else PCV20) [code = 65+ PNEUMOCOCCAL VACCINE (4 - PPSV23 if available, else PCV20)] Future Scheduled 2022-10-27 INFLUENZA VACCINE Method [facility] Test 22:40:19 [code = INFLUENZA VACCINE] Future Scheduled 2022-10-27 Screening for [facility] Test 22:40:19 malignant neoplasm of colon (procedure) [code = 317293148] Future Scheduled 2022-10-27 Screening for [facility] Test 22:40:19 malignant neoplasm of colon (procedure) [code = 968205326] Future Scheduled 2022-10-27 Screening for [facility] Test 22:40:19 malignant neoplasm of colon (procedure) [code = 976953287] Future Scheduled 2022-10-27 SHINGLES VACCINES (1 [facility] Test 22:40:19 of 2) [code = SHINGLES VACCINES (1 of 2)] Future Scheduled 2022-10-27 BREAST CANCER [facility] Test 22:40:19 SCREENING [code = BREAST CANCER SCREENING] Future Scheduled 2022-10-27 Screening for [facility] Test 22:40:19 malignant neoplasm of colon (procedure) [code = 261263936] Future Scheduled 2022-10-27 Screening for [facility] Test 22:40:19 malignant neoplasm of colon (procedure) [code = 710554172] Future Scheduled 2022-10-27 HEPATITIS B VACCINES [facility] Test 22:40:19 (1 of 3 - Risk 3-dose series) [code = HEPATITIS B VACCINES (1 of 3 - Risk 3-dose series)] Future Scheduled 2022-10-27 COVID-19 VACCINE (3 - [facility] Test 22:40:19 Pfizer series) [code = COVID-19 VACCINE (3 - Pfizer series)] Future Scheduled 2022-10-27 65+ PNEUMOCOCCAL [facility] Test 22:40:19 VACCINE (4 - PPSV23 if available, else PCV20) [code = 65+ PNEUMOCOCCAL VACCINE (4 - PPSV23 if available, else PCV20)] Future Scheduled 2022-10-27 INFLUENZA VACCINE Method [facility] Test 22:40:19 [code = INFLUENZA VACCINE] Future Scheduled 2022-09-10 SHINGLES VACCINES (1 [facility] Test 15:06:53 of 2) [code = SHINGLES VACCINES (1 of 2)] Future Scheduled 2022-09-10 BREAST CANCER [facility] Test 15:06:53 SCREENING [code = BREAST CANCER SCREENING] Future Scheduled 2022-09-10 COLONOSCOPY SCREENING [facility] Test 15:06:53 [code = COLONOSCOPY SCREENING] Future Scheduled 2022-09-10 HEPATITIS B VACCINES [facility] Test 15:06:53 (1 of 3 - Risk 3-dose series) [code = HEPATITIS B VACCINES (1 of 3 - Risk 3-dose series)] Future Scheduled 2022-09-10 COVID-19 VACCINE (3 - [facility] Test 15:06:53 Booster for Pfizer series) [code = COVID-19 VACCINE (3 - Booster for Pfizer series)] Future Scheduled 2022-09-10 65+ [facility] 15:06:53 VACCINE (4 - PPSV23 if available, else PCV20) [code = 65+ PNEUMOCOCCAL VACCINE (4 - PPSV23 if available, else PCV20)] Future Scheduled 2022-09-10 INFLUENZA VACCINE Method [facility] Test 15:06:53 [code = INFLUENZA VACCINE] Future Scheduled 2022-09-10 SHINGLES VACCINES (1 [facility] Test 15:06:53 of 2) [code = SHINGLES VACCINES (1 of 2)] Future Scheduled 2022-09-10 BREAST CANCER [facility] Test 15:06:53 SCREENING [code = BREAST CANCER SCREENING] Future Scheduled 2022-09-10 COLONOSCOPY SCREENING [facility] Test 15:06:53 [code = COLONOSCOPY SCREENING] Future Scheduled 2022-09-10 HEPATITIS B VACCINES [facility] Test 15:06:53 (1 of 3 - Risk 3-dose series) [code = HEPATITIS B VACCINES (1 of 3 - Risk 3-dose series)] Future Scheduled 2022-09-10 COVID-19 VACCINE (3 - [facility] Test 15:06:53 Booster for Pfizer series) [code = COVID-19 VACCINE (3 - Booster for Pfizer series)] Future Scheduled 2022-09-10 65+ PNEUMOCOCCAL [facility] Test 15:06:53 VACCINE (4 - PPSV23 if available, else PCV20) [code = 65+ PNEUMOCOCCAL VACCINE (4 - PPSV23 if available, else PCV20)] Future Scheduled 2022-09-10 INFLUENZA VACCINE Method [facility] Test 15:06:53 [code = INFLUENZA VACCINE] Future Scheduled 2022-09-10 SHINGLES VACCINES (1 [facility] Test 15:06:53 of 2) [code = SHINGLES VACCINES (1 of 2)] Future Scheduled 2022-09-10 BREAST CANCER [facility] Test 15:06:53 SCREENING [code = BREAST CANCER SCREENING] Future Scheduled 2022-09-10 COLONOSCOPY SCREENING [facility] Test 15:06:53 [code = COLONOSCOPY SCREENING] Future Scheduled 2022-09-10 HEPATITIS B VACCINES [facility] Test 15:06:53 (1 of 3 - Risk 3-dose series) [code = HEPATITIS B VACCINES (1 of 3 - Risk 3-dose series)] Future Scheduled 2022-09-10 COVID-19 VACCINE (3 - Me [facility] Test 15:06:53 Booster for Pfizer series) [code = COVID-19 VACCINE (3 - Booster for Pfizer series)] Future Scheduled 2022-09-10 65+ PNEUMOCOCCAL [facility] Test 15:06:53 VACCINE (4 - PPSV23 if available, else PCV20) [code = 65+ PNEUMOCOCCAL VACCINE (4 - PPSV23 if available, else PCV20)] Future Scheduled 2022-09-10 INFLUENZA VACCINE Method [facility] Test 15:06:53 [code = INFLUENZA VACCINE] Future Scheduled 2022-09-10 SHINGLES VACCINES (1 [facility] Test 15:06:53 of 2) [code = SHINGLES VACCINES (1 of 2)] Future Scheduled 2022-09-10 BREAST CANCER [facility] Test 15:06:53 SCREENING [code = BREAST CANCER SCREENING] Future Scheduled 2022-09-10 COLONOSCOPY SCREENING [facility] Test 15:06:53 [code = COLONOSCOPY SCREENING] Future Scheduled 2022-09-10 HEPATITIS B VACCINES [facility] Test 15:06:53 (1 of 3 - Risk 3-dose series) [code = HEPATITIS B VACCINES (1 of 3 - Risk 3-dose series)] Future Scheduled 2022-09-10 COVID-19 VACCINE (3 - [facility] Test 15:06:53 Booster for Pfizer series) [code = COVID-19 VACCINE (3 - Booster for Pfizer series)] Future Scheduled 2022-09-10 65+ [facility] VACCINE (4 - PPSV23 if available, else PCV20) [code = 65+ PNEUMOCOCCAL VACCINE (4 - PPSV23 if available, else PCV20)] Future Scheduled 2022-09-10 INFLUENZA VACCINE Method [facility] Test 15:06:53 [code = INFLUENZA VACCINE] Future Scheduled 2022-09-10 SHINGLES VACCINES (1 [facility] Test 15:06:53 of 2) [code = SHINGLES VACCINES (1 of 2)] Future Scheduled 2022-09-10 BREAST CANCER [facility] Test 15:06:53 SCREENING [code = BREAST CANCER SCREENING] Future Scheduled 2022-09-10 COLONOSCOPY SCREENING [facility] Test 15:06:53 [code = COLONOSCOPY SCREENING] Future Scheduled 2022-09-10 HEPATITIS B VACCINES [facility] Test 15:06:53 (1 of 3 - Risk 3-dose series) [code = HEPATITIS B VACCINES (1 of 3 - Risk 3-dose series)] Future Scheduled 2022-09-10 COVID-19 VACCINE (3 - [facility] Test 15:06:53 Booster for Pfizer series) [code = COVID-19 VACCINE (3 - Booster for Pfizer series)] Future Scheduled 2022-09-10 65+ [facility] VACCINE (4 - PPSV23 if available, else PCV20) [code = 65+ PNEUMOCOCCAL VACCINE (4 - PPSV23 if available, else PCV20)] Future Scheduled 2022-09-10 INFLUENZA VACCINE Method [facility] Test 15:06:53 [code = INFLUENZA VACCINE] Future Scheduled 2022-09-10 SHINGLES VACCINES (1 [facility] Test 15:06:53 of 2) [code = SHINGLES VACCINES (1 of 2)] Future Scheduled 2022-09-10 BREAST CANCER [facility] Test 15:06:53 SCREENING [code = BREAST CANCER SCREENING] Future Scheduled 2022-09-10 COLONOSCOPY SCREENING [facility] Test 15:06:53 [code = COLONOSCOPY SCREENING] Future Scheduled 2022-09-10 HEPATITIS B VACCINES [facility] Test 15:06:53 (1 of 3 - Risk 3-dose series) [code = HEPATITIS B VACCINES (1 of 3 - Risk 3-dose series)] Future Scheduled 2022-09-10 COVID-19 VACCINE (3 - [facility] Test 15:06:53 Booster for Pfizer series) [code = COVID-19 VACCINE (3 - Booster for Pfizer series)] Future Scheduled 2022-09-10 65+ [facility] VACCINE (4 - PPSV23 if available, else PCV20) [code = 65+ PNEUMOCOCCAL VACCINE (4 - PPSV23 if available, else PCV20)] Future Scheduled 2022-09-10 INFLUENZA VACCINE Method [facility] Test 15:06:53 [code = INFLUENZA VACCINE] Future Scheduled 2022-09-10 SHINGLES VACCINES (1 [facility] Test 15:06:53 of 2) [code = SHINGLES VACCINES (1 of 2)] Future Scheduled 2022-09-10 BREAST CANCER [facility] Test 15:06:53 SCREENING [code = BREAST CANCER SCREENING] Future Scheduled 2022-09-10 COLONOSCOPY SCREENING [facility] Test 15:06:53 [code = COLONOSCOPY SCREENING] Future Scheduled 2022-09-10 HEPATITIS B VACCINES [facility] Test 15:06:53 (1 of 3 - Risk 3-dose series) [code = HEPATITIS B VACCINES (1 of 3 - Risk 3-dose series)] Future Scheduled 2022-09-10 COVID-19 VACCINE (3 - [facility] Test 15:06:53 Booster for Pfizer series) [code = COVID-19 VACCINE (3 - Booster for Pfizer series)] Future Scheduled 2022-09-10 65+ [facility]:06:[facility] VACCINE (4 - PPSV23 if available, else PCV20) [code = 65+ PNEUMOCOCCAL VACCINE (4 - PPSV23 if available, else PCV20)] Future Scheduled 2022-09-10 INFLUENZA VACCINE Method [facility] Test 15:06:53 [code = INFLUENZA VACCINE] Future Scheduled 2022-09-10 SHINGLES VACCINES (1 [facility] Test 15:06:53 of 2) [code = SHINGLES VACCINES (1 of 2)] Future Scheduled 2022-09-10 BREAST CANCER [facility] Test 15:06:53 SCREENING [code = BREAST CANCER SCREENING] Future Scheduled 2022-09-10 COLONOSCOPY SCREENING [facility] Test 15:06:53 [code = COLONOSCOPY SCREENING] Future Scheduled 2022-09-10 HEPATITIS B VACCINES [facility] Test 15:06:53 (1 of 3 - Risk 3-dose series) [code = HEPATITIS B VACCINES (1 of 3 - Risk 3-dose series)] Future Scheduled 2022-09-10 COVID-19 VACCINE (3 - [facility] Test 15:06:53 Booster for Pfizer series) [code = COVID-19 VACCINE (3 - Booster for Pfizer series)] Future Scheduled 2022-09-10 65+ [facility] 15:06:[facility] VACCINE (4 - PPSV23 if available, else PCV20) [code = 65+ PNEUMOCOCCAL VACCINE (4 - PPSV23 if available, else PCV20)] Future Scheduled 2022-09-10 INFLUENZA VACCINE Method [facility] Test 15:06:53 [code = INFLUENZA VACCINE] Future Scheduled 2022-08-26 SHINGLES VACCINES (1 [facility] Test 14:43:48 of 2) [code = SHINGLES VACCINES (1 of 2)] Future Scheduled 2022-08-26 BREAST CANCER [facility] Test 14:43:48 SCREENING [code = BREAST CANCER SCREENING] Future Scheduled 2022-08-26 COLONOSCOPY SCREENING [facility] Test 14:43:48 [code = COLONOSCOPY SCREENING] Future Scheduled 2022-08-26 HEPATITIS B VACCINES [facility] Test 14:43:48 (1 of 3 - Risk 3-dose series) [code = HEPATITIS B VACCINES (1 of 3 - Risk 3-dose series)] Future Scheduled 2022-08-26 COVID-19 VACCINE (3 - [facility] Test 14:43:48 Booster for Pfizer series) [code = COVID-19 VACCINE (3 - Booster for Pfizer series)] Future Scheduled 2022-08-26 65+ [facility] 14:43:[facility] VACCINE (4 - PPSV23 if available, else PCV20) [code = 65+ PNEUMOCOCCAL VACCINE (4 - PPSV23 if available, else PCV20)] Future Scheduled 2022-08-26 [facility] 14:43:48 [code = INFLUENZA VACCINE] Future Scheduled 2022-08-07 SHINGLES VACCINES (1 [facility] Test 23:30:11 of 2) [code = SHINGLES VACCINES (1 of 2)] Future Scheduled 2022-08-07 BREAST CANCER [facility] Test 23:30:11 SCREENING [code = BREAST CANCER SCREENING] Future Scheduled 2022-08-07 COLONOSCOPY SCREENING [facility] Test 23:30:11 [code = COLONOSCOPY SCREENING] Future Scheduled 2022-08-07 HEPATITIS B VACCINES [facility] Test 23:30:11 (1 of 3 - Risk 3-dose series) [code = HEPATITIS B VACCINES (1 of 3 - Risk 3-dose series)] Future Scheduled 2022-08-07 COVID-19 VACCINE (3 - [facility] Test 23:30:11 Booster for Pfizer series) [code = COVID-19 VACCINE (3 - Booster for Pfizer series)] Future Scheduled 2022-08-07 65+ PNEUMOCOCCAL [facility] Test 23:30:11 VACCINE (4 - PPSV23 if available, else PCV20) [code = 65+ PNEUMOCOCCAL VACCINE (4 - PPSV23 if available, else PCV20)] Future Scheduled 2022-08-07 INFLUENZA VACCINE Method [facility] Test 23:30:11 [code = INFLUENZA VACCINE] Future Scheduled 2022-08-07 SHINGLES VACCINES (1 [facility] Test 23:30:11 of 2) [code = SHINGLES VACCINES (1 of 2)] Future Scheduled 2022-08-07 BREAST CANCER [facility] Test 23:30:11 SCREENING [code = BREAST CANCER SCREENING] Future Scheduled 2022-08-07 COLONOSCOPY SCREENING [facility] Test 23:30:11 [code = COLONOSCOPY SCREENING] Future Scheduled 2022-08-07 HEPATITIS B VACCINES [facility] Test 23:30:11 (1 of 3 - Risk 3-dose series) [code = HEPATITIS B VACCINES (1 of 3 - Risk 3-dose series)] Future Scheduled 2022-08-07 COVID-19 VACCINE (3 - [facility] Test 23:30:11 Booster for Pfizer series) [code = COVID-19 VACCINE (3 - Booster for Pfizer series)] Future Scheduled 2022-08-07 65+ [facility] 23:30:11 VACCINE (4 - PPSV23 if available, else PCV20) [code = 65+ PNEUMOCOCCAL VACCINE (4 - PPSV23 if available, else PCV20)] Future Scheduled 2022-08-07 INFLUENZA VACCINE Method [facility] Test 23:30:11 [code = INFLUENZA VACCINE] Future Scheduled 2022-08-06 SHINGLES VACCINES (1 [facility] Test 15:48:02 of 2) [code = SHINGLES VACCINES (1 of 2)] Future Scheduled 2022-08-06 BREAST CANCER [facility] Test 15:48:02 SCREENING [code = BREAST CANCER SCREENING] Future Scheduled 2022-08-06 COLONOSCOPY SCREENING [facility] Test 15:48:02 [code = COLONOSCOPY SCREENING] Future Scheduled 2022-08-06 HEPATITIS B VACCINES [facility] Test 15:48:02 (1 of 3 - Risk 3-dose series) [code = HEPATITIS B VACCINES (1 of 3 - Risk 3-dose series)] Future Scheduled 2022-08-06 COVID-19 VACCINE (3 - [facility] Test 15:48:02 Booster for Pfizer series) [code = COVID-19 VACCINE (3 - Booster for Pfizer series)] Future Scheduled 2022-08-06 65+ [facility] 15:48:02 VACCINE (4 - PPSV23 if available, else PCV20) [code = 65+ PNEUMOCOCCAL VACCINE (4 - PPSV23 if available, else PCV20)] Future Scheduled 2022-08-06 INFLUENZA VACCINE Method [facility] Test 15:48:02 [code = INFLUENZA VACCINE] Future Scheduled 2022-06-11 SHINGLES VACCINES (1 [facility] Test 16:10:12 of 2) [code = SHINGLES VACCINES (1 of 2)] Future Scheduled 2022-06-11 BREAST CANCER [facility] Test 16:10:12 SCREENING [code = BREAST CANCER SCREENING] Future Scheduled 2022-06-11 COLONOSCOPY SCREENING [facility] Test 16:10:12 [code = COLONOSCOPY SCREENING] Future Scheduled 2022-06-11 HEPATITIS B VACCINES [facility] Test 16:10:12 (1 of 3 - Risk 3-dose series) [code = HEPATITIS B VACCINES (1 of 3 - Risk 3-dose series)] Future Scheduled 2022-06-11 COVID-19 VACCINE (3 - [facility] Test 16:10:12 Booster for Pfizer series) [...] Future Scheduled 2022-06-11 SHINGLES VACCINES (1 [facility] Test 16:10:12 of 2) [code = SHINGLES VACCINES (1 of 2)] Future Scheduled 2022-06-11 BREAST CANCER [facility] Test 16:10:12 SCREENING [code = BREAST CANCER SCREENING] Future Scheduled 2022-06-11 COLONOSCOPY SCREENING [facility] Test 16:10:12 [code = COLONOSCOPY SCREENING] Future Scheduled 2022-06-11 HEPATITIS B VACCINES [facility] Test 16:10:12 (1 of 3 - Risk 3-dose series) [code = HEPATITIS B VACCINES (1 of 3 - Risk 3-dose series)] Future Scheduled 2022-06-11 COVID-19 VACCINE (3 - [facility] Test 16:10:12 Booster for Pfizer series) [...] Future Scheduled 2022-06-11 SHINGLES VACCINES (1 [facility] Test 16:10:12 of 2) [code = SHINGLES VACCINES (1 of 2)] Future Scheduled 2022-06-11 BREAST CANCER [facility] Test 16:10:12 SCREENING [code = BREAST CANCER SCREENING] Future Scheduled 2022-06-11 COLONOSCOPY SCREENING [facility] Test 16:10:12 [code = COLONOSCOPY SCREENING] Future Scheduled 2022-06-11 HEPATITIS B VACCINES [facility] Test 16:10:12 (1 of 3 - Risk 3-dose series) [code = HEPATITIS B VACCINES (1 of 3 - Risk 3-dose series)] Future Scheduled 2022-06-11 COVID-19 VACCINE (3 - [facility] Test 16:10:12 Booster for Pfizer series) [code = COVID-19 VACCINE (3 - Booster for Pfizer series)] Future Scheduled 2022-06-11 65+ PNEUMOCOCCAL [facility] Test 16:10:12 VACCINE (4 - PPSV23 if available, else PCV20) [code = 65+ PNEUMOCOCCAL VACCINE (4 - PPSV23 if available, else PCV20)] Future Scheduled 2022-06-11 INFLUENZA VACCINE [facility] Test 16:10:12 [code = INFLUENZA VACCINE] Future Scheduled 2022-06-11 SHINGLES VACCINES (1 [facility] Test 16:10:12 of 2) [code = SHINGLES VACCINES (1 of 2)] Future Scheduled 2022-06-11 BREAST CANCER [facility] Test 16:10:12 SCREENING [code = BREAST CANCER SCREENING] Future Scheduled 2022-06-11 COLONOSCOPY SCREENING [facility] Test 16:10:12 [code = COLONOSCOPY SCREENING] Future Scheduled 2022-06-11 HEPATITIS B VACCINES [facility] Test 16:10:12 (1 of 3 - Risk 3-dose series) [code = HEPATITIS B VACCINES (1 of 3 - Risk 3-dose series)] Future Scheduled 2022-06-11 COVID-19 VACCINE (3 - [facility] Test 16:10:12 Booster for Pfizer series) [...] Future Scheduled 2022-06-11 SHINGLES VACCINES (1 [facility] Test 16:10:12 of 2) [code = SHINGLES VACCINES (1 of 2)] Future Scheduled 2022-06-11 BREAST CANCER [facility] Test 16:10:12 SCREENING [code = BREAST CANCER SCREENING] Future Scheduled 2022-06-11 COLONOSCOPY SCREENING [facility] Test 16:10:12 [code = COLONOSCOPY SCREENING] Future Scheduled 2022-06-11 HEPATITIS B VACCINES [facility] Test 16:10:12 (1 of 3 - Risk 3-dose series) [code = HEPATITIS B VACCINES (1 of 3 - Risk 3-dose series)] Future Scheduled 2022-06-11 COVID-19 VACCINE (3 - [facility] Test 16:10:12 Booster for Pfizer series) [code = COVID-19 VACCINE (3 - Booster for Pfizer series)] Future Scheduled 2022-06-11 65+ [facility] 16:10:12 VACCINE (4 - PPSV23 if available, else PCV20) [code = 65+ PNEUMOCOCCAL VACCINE (4 - PPSV23 if available, else PCV20)] Future Scheduled 2022-06-11 INFLUENZA VACCINE [facility] Test 16:10:12 [code = INFLUENZA VACCINE] Future Scheduled 2022-06-11 SHINGLES VACCINES (1 [facility] Test 16:10:12 of 2) [code = SHINGLES VACCINES (1 of 2)] Future Scheduled 2022-06-11 BREAST CANCER [facility] Test 16:10:12 SCREENING [code = BREAST CANCER SCREENING] Future Scheduled 2022-06-11 COLONOSCOPY SCREENING [facility] Test 16:10:12 [code = COLONOSCOPY SCREENING] Future Scheduled 2022-06-11 HEPATITIS B VACCINES [facility] Test 16:10:12 (1 of 3 - Risk 3-dose series) [code = HEPATITIS B VACCINES (1 of 3 - Risk 3-dose series)] Future Scheduled 2022-06-11 COVID-19 VACCINE (3 - [facility] Test 16:10:12 Booster for Pfizer series) [...] Future Scheduled 2022-06-11 SHINGLES VACCINES (1 [facility] Test 16:10:12 of 2) [code = SHINGLES VACCINES (1 of 2)] Future Scheduled 2022-06-11 BREAST CANCER [facility] Test 16:10:12 SCREENING [code = BREAST CANCER SCREENING] Future Scheduled 2022-06-11 COLONOSCOPY SCREENING [facility] Test 16:10:12 [code = COLONOSCOPY SCREENING] Future Scheduled 2022-06-11 HEPATITIS B VACCINES [facility] Test 16:10:12 (1 of 3 - Risk 3-dose series) [code = HEPATITIS B VACCINES (1 of 3 - Risk 3-dose series)] Future Scheduled 2022-06-11 COVID-19 VACCINE (3 - [facility] Test 16:10:12 Booster for Pfizer series) [...] Future Scheduled 2022-06-11 SHINGLES VACCINES (1 [facility] Test 16:10:12 of 2) [code = SHINGLES VACCINES (1 of 2)] Future Scheduled 2022-06-11 BREAST CANCER [facility] Test 16:10:12 SCREENING [code = BREAST CANCER SCREENING] Future Scheduled 2022-06-11 COLONOSCOPY SCREENING [facility] Test 16:10:12 [code = COLONOSCOPY SCREENING] Future Scheduled 2022-06-11 HEPATITIS B VACCINES [facility] Test 16:10:12 (1 of 3 - Risk 3-dose series) [code = HEPATITIS B VACCINES (1 of 3 - Risk 3-dose series)] Future Scheduled 2022-06-11 COVID-19 VACCINE (3 - [facility] Test 16:10:12 Booster for Pfizer series) [...] Future Scheduled 2022-06-11 SHINGLES VACCINES (1 [facility] Test 16:10:12 of 2) [code = SHINGLES VACCINES (1 of 2)] Future Scheduled 2022-06-11 BREAST CANCER [facility] Test 16:10:12 SCREENING [code = BREAST CANCER SCREENING] Future Scheduled 2022-06-11 COLONOSCOPY SCREENING [facility] Test 16:10:12 [code = COLONOSCOPY SCREENING] Future Scheduled 2022-06-11 HEPATITIS B VACCINES [facility] Test 16:10:12 (1 of 3 - Risk 3-dose series) [code = HEPATITIS B VACCINES (1 of 3 - Risk 3-dose series)] Future Scheduled 2022-06-11 COVID-19 VACCINE (3 - [facility] Test 16:10:12 Booster for Pfizer series) [code = COVID-19 VACCINE (3 - Booster for Pfizer series)] Future Scheduled 2022-06-11 65+ [facility] 16:10:12 VACCINE (4 - PPSV23 if available, else PCV20) [code = 65+ PNEUMOCOCCAL VACCINE (4 - PPSV23 if available, else PCV20)] Future Scheduled 2022-06-11 INFLUENZA VACCINE [facility] Test 16:10:12 [code = INFLUENZA VACCINE] Future Scheduled 2022-05-10 SHINGLES VACCINES (1 [facility] Test 10:21:35 of 2) [code = SHINGLES VACCINES (1 of 2)] Future Scheduled 2022-05-10 BREAST CANCER [facility] Test 10:21:35 SCREENING [code = BREAST CANCER SCREENING] Future Scheduled 2022-05-10 COLONOSCOPY SCREENING [facility] Test 10:21:35 [code = COLONOSCOPY SCREENING] Future Scheduled 2022-05-10 HEPATITIS B VACCINES [facility] Test 10:21:35 (1 of 3 - Risk 3-dose series) [code = HEPATITIS B VACCINES (1 of 3 - Risk 3-dose series)] Future Scheduled 2022-05-10 COVID-19 VACCINE (3 - [facility] Test 10:21:35 Booster for Pfizer series) [code = COVID-19 VACCINE (3 - Booster for Pfizer series)] Future Scheduled 2022-05-10 65+ PNEUMOCOCCAL [facility] Test 10:21:35 VACCINE (4 - PPSV23 if available, else PCV20) [code = 65+ PNEUMOCOCCAL VACCINE (4 - PPSV23 if available, else PCV20)] Future Scheduled 2022-05-10 INFLUENZA VACCINE Method [facility] Test 10:21:35 [code = INFLUENZA VACCINE] Future Scheduled 2022-05-10 SHINGLES VACCINES (1 [facility] Test 10:21:35 of 2) [code = SHINGLES VACCINES (1 of 2)] Future Scheduled 2022-05-10 BREAST CANCER [facility] Test 10:21:35 SCREENING [code = BREAST CANCER SCREENING] Future Scheduled 2022-05-10 COLONOSCOPY SCREENING [facility] Test 10:21:35 [code = COLONOSCOPY SCREENING] Future Scheduled 2022-05-10 HEPATITIS B VACCINES [facility] Test 10:21:35 (1 of 3 - Risk 3-dose series) [code = HEPATITIS B VACCINES (1 of 3 - Risk 3-dose series)] Future Scheduled 2022-05-10 COVID-19 VACCINE (3 - [facility] Test 10:21:35 Booster for Pfizer series) [code = COVID-19 VACCINE (3 - Booster for Pfizer series)] Future Scheduled 2022-05-10 65+ PNEUMOCOCCAL [facility] Test 10:21:35 VACCINE (4 - PPSV23 if available, else PCV20) [code = 65+ PNEUMOCOCCAL VACCINE (4 - PPSV23 if available, else PCV20)] Future Scheduled 2022-05-10 INFLUENZA VACCINE Method [facility] Test 10:21:35 [code = INFLUENZA VACCINE] Future Scheduled 2022-05-06 SHINGLES VACCINES (1 [facility] Test 14:03:13 of 2) [code = SHINGLES VACCINES (1 of 2)] Future Scheduled 2022-05-06 BREAST CANCER [facility] Test 14:03:13 SCREENING [code = BREAST CANCER SCREENING] Future Scheduled 2022-05-06 COLONOSCOPY SCREENING [facility] Test 14:03:13 [code = COLONOSCOPY SCREENING] Future Scheduled 2022-05-06 HEPATITIS B VACCINES [facility] Test 14:03:13 (1 of 3 - Risk 3-dose series) [code = HEPATITIS B VACCINES (1 of 3 - Risk 3-dose series)] Future Scheduled 2022-05-06 COVID-19 VACCINE (3 - [facility] Test 14:03:13 Booster for Pfizer series) [code = COVID-19 VACCINE (3 - Booster for Pfizer series)] Future Scheduled 2022-05-06 65+ PNEUMOCOCCAL [facility] Test 14:03:13 VACCINE (4 - PPSV23 if available, else PCV20) [code = 65+ PNEUMOCOCCAL VACCINE (4 - PPSV23 if available, else PCV20)] Future Scheduled 2022-05-06 INFLUENZA VACCINE Method [facility] Test 14:03:13 [code = INFLUENZA VACCINE] Future Scheduled 2022-04-30 SHINGLES VACCINES (1 [facility] Test 01:07:32 of 2) [code = SHINGLES VACCINES (1 of 2)] Future Scheduled 2022-04-30 BREAST CANCER [facility] Test 01:07:32 SCREENING [code = BREAST CANCER SCREENING] Future Scheduled 2022-04-30 COLONOSCOPY SCREENING [facility] Test 01:07:32 [code = COLONOSCOPY SCREENING] Future Scheduled 2022-04-30 HEPATITIS B VACCINES [facility] Test 01:07:32 (1 of 3 - Risk 3-dose series) [code = HEPATITIS B VACCINES (1 of 3 - Risk 3-dose series)] Future Scheduled 2022-04-30 COVID-19 VACCINE (3 - [facility] Test 01:07:32 Booster for Pfizer series) [code = COVID-19 VACCINE (3 - Booster for Pfizer series)] Future Scheduled 2022-04-30 65+ PNEUMOCOCCAL [facility] Test 01:07:32 VACCINE (4 - PPSV23 if available, else PCV20) [code = 65+ PNEUMOCOCCAL VACCINE (4 - PPSV23 if available, else PCV20)] Future Scheduled 2022-04-30 INFLUENZA VACCINE Method [facility] Test 01:07:32 [code = INFLUENZA VACCINE] Future Scheduled 2022-04-30 SHINGLES VACCINES (1 [facility] Test 01:07:32 of 2) [code = SHINGLES VACCINES (1 of 2)] Future Scheduled 2022-04-30 BREAST CANCER [facility] Test 01:07:32 SCREENING [code = BREAST CANCER SCREENING] Future Scheduled 2022-04-30 COLONOSCOPY SCREENING [facility] Test 01:07:32 [code = COLONOSCOPY SCREENING] Future Scheduled 2022-04-30 HEPATITIS B VACCINES [facility] Test 01:07:32 (1 of 3 - Risk 3-dose series) [code = HEPATITIS B VACCINES (1 of 3 - Risk 3-dose series)] Future Scheduled 2022-04-30 COVID-19 VACCINE (3 - [facility] Test 01:07:32 Booster for Pfizer series) [code = COVID-19 VACCINE (3 - Booster for Pfizer series)] Future Scheduled 2022-04-30 65+ PNEUMOCOCCAL [facility] Test 01:07:32 VACCINE (4 - PPSV23 if available, else PCV20) [code = 65+ PNEUMOCOCCAL VACCINE (4 - PPSV23 if available, else PCV20)] Future Scheduled 2022-04-30 INFLUENZA VACCINE Method [facility] Test 01:07:32 [code = INFLUENZA VACCINE] Future Scheduled 2022-04-30 SHINGLES VACCINES (1 [facility] Test 01:07:32 of 2) [code = SHINGLES VACCINES (1 of 2)] Future Scheduled 2022-04-30 BREAST CANCER [facility] Test 01:07:32 SCREENING [code = BREAST CANCER SCREENING] Future Scheduled 2022-04-30 COLONOSCOPY SCREENING [facility] Test 01:07:32 [code = COLONOSCOPY SCREENING] Future Scheduled 2022-04-30 HEPATITIS B VACCINES [facility] Test 01:07:32 (1 of 3 - Risk 3-dose series) [code = HEPATITIS B VACCINES (1 of 3 - Risk 3-dose series)] Future Scheduled 2022-04-30 COVID-19 VACCINE (3 - [facility] Test 01:07:32 Booster for Pfizer series) [code = COVID-19 VACCINE (3 - Booster for Pfizer series)] Future Scheduled 2022-04-30 65+ [facility] 01:07:[facility] VACCINE (4 - PPSV23 if available, else PCV20) [code = 65+ PNEUMOCOCCAL VACCINE (4 - PPSV23 if available, else PCV20)] Future Scheduled 2022-04-30 INFLUENZA VACCINE Method [facility] Test 01:07:32 [code = INFLUENZA VACCINE] Future Scheduled 2022-04-25 SHINGLES VACCINES (1 [facility] Test 01:45:02 of 2) [code = SHINGLES VACCINES (1 of 2)] Future Scheduled 2022-04-25 BREAST CANCER [facility] Test 01:45:02 SCREENING [code = BREAST CANCER SCREENING] Future Scheduled 2022-04-25 COLONOSCOPY SCREENING [facility] Test 01:45:02 [code = COLONOSCOPY SCREENING] Future Scheduled 2022-04-25 HEPATITIS B VACCINES [facility] Test 01:45:02 (1 of 3 - Risk 3-dose series) [code = HEPATITIS B VACCINES (1 of 3 - Risk 3-dose series)] Future Scheduled 2022-04-25 COVID-19 VACCINE (3 - [facility] Test 01:45:02 Booster for [...] Future Scheduled 2022-03-25 SHINGLES VACCINES (1 [facility] Test 14:48:42 of 2) [code = SHINGLES VACCINES (1 of 2)] Future Scheduled 2022-03-25 BREAST CANCER [facility] Test 14:48:42 SCREENING [code = BREAST CANCER SCREENING] Future Scheduled 2022-03-25 COLONOSCOPY SCREENING [facility] Test 14:48:42 [code = COLONOSCOPY SCREENING] Future Scheduled 2022-03-25 HEPATITIS B VACCINES [facility] Test 14:48:42 (1 of 3 - Risk 3-dose series) [code = HEPATITIS B VACCINES (1 of 3 - Risk 3-dose series)] Future Scheduled 2022-03-25 COVID-19 VACCINE (3 - [facility] Test 14:48:42 Booster for Pfizer series) [code [...] Future Scheduled 2022-03-25 SHINGLES VACCINES (1 [facility] Test 14:48:42 of 2) [code = SHINGLES VACCINES (1 of 2)] Future Scheduled 2022-03-25 BREAST CANCER [facility] Test 14:48:42 SCREENING [code = BREAST CANCER SCREENING] Future Scheduled 2022-03-25 COLONOSCOPY SCREENING [facility] Test 14:48:42 [code = COLONOSCOPY SCREENING] Future Scheduled 2022-03-25 HEPATITIS B VACCINES [facility] Test 14:48:42 (1 of 3 - Risk 3-dose series) [code = HEPATITIS B VACCINES (1 of 3 - Risk 3-dose series)] Future Scheduled 2022-03-25 COVID-19 VACCINE (3 - [facility] Test 14:48:42 Booster for Pfizer series) [code = COVID-19 VACCINE (3 - Booster for Pfizer series)] Future Scheduled 2022-03-25 65+ [facility] 14:48:[facility] VACCINE (4 - PPSV23 if available, else PCV20) [code = 65+ PNEUMOCOCCAL VACCINE (4 - PPSV23 if available, else PCV20)] Future Scheduled 2022-03-25 INFLUENZA VACCINE Method [facility] Test 14:48:42 [code = INFLUENZA VACCINE] Future Scheduled 2022-03-25 SHINGLES VACCINES (1 [facility] Test 14:48:42 of 2) [code = SHINGLES VACCINES (1 of 2)] Future Scheduled 2022-03-25 BREAST CANCER [facility] Test 14:48:42 SCREENING [code = BREAST CANCER SCREENING] Future Scheduled 2022-03-25 COLONOSCOPY SCREENING [facility] Test 14:48:42 [code = COLONOSCOPY SCREENING] Future Scheduled 2022-03-25 HEPATITIS B VACCINES [facility] Test 14:48:42 (1 of 3 - Risk 3-dose series) [code = HEPATITIS B VACCINES (1 of 3 - Risk 3-dose series)] Future Scheduled 2022-03-25 COVID-19 VACCINE (3 - [facility] Test 14:48:42 Booster for Pfizer series) [code = COVID-19 VACCINE (3 - Booster for Pfizer series)] Future Scheduled 2022-03-25 65+ [facility] 14:48:42 VACCINE (4 - PPSV23 if available, else PCV20) [code = 65+ PNEUMOCOCCAL VACCINE (4 - PPSV23 if available, else PCV20)] Future Scheduled 2022-03-25 INFLUENZA VACCINE Method [facility] Test 14:48:42 [code = INFLUENZA VACCINE] Future Scheduled 2022-03-25 SHINGLES VACCINES (1 [facility] Test 14:48:42 of 2) [code = SHINGLES VACCINES (1 of 2)] Future Scheduled 2022-03-25 BREAST CANCER [facility] Test 14:48:42 SCREENING [code = BREAST CANCER SCREENING] Future Scheduled 2022-03-25 COLONOSCOPY SCREENING [facility] Test 14:48:42 [code = COLONOSCOPY SCREENING] Future Scheduled 2022-03-25 HEPATITIS B VACCINES [facility] Test 14:48:42 (1 of 3 - Risk 3-dose series) [code = HEPATITIS B VACCINES (1 of 3 - Risk 3-dose series)] Future Scheduled 2022-03-25 COVID-19 VACCINE (3 - [facility] Test 14:48:42 Booster for Pfizer series) [code = COVID-19 VACCINE (3 - Booster for Pfizer series)] Future Scheduled 2022-03-25 65+ [facility] 14:48:42 VACCINE (4 - PPSV23 if available, else PCV20) [code = 65+ PNEUMOCOCCAL VACCINE (4 - PPSV23 if available, else PCV20)] Future Scheduled 2022-03-25 INFLUENZA VACCINE Method [facility] Test 14:48:42 [code = INFLUENZA VACCINE] Future Scheduled 2022-03-25 SHINGLES VACCINES (1 [facility] Test 14:48:42 of 2) [code = SHINGLES VACCINES (1 of 2)] Future Scheduled 2022-03-25 BREAST CANCER [facility] Test 14:48:42 SCREENING [code = BREAST CANCER SCREENING] Future Scheduled 2022-03-25 COLONOSCOPY SCREENING [facility] Test 14:48:42 [code = COLONOSCOPY SCREENING] Future Scheduled 2022-03-25 HEPATITIS B VACCINES [facility] Test 14:48:42 (1 of 3 - Risk 3-dose series) [code = HEPATITIS B VACCINES (1 of 3 - Risk 3-dose series)] Future Scheduled 2022-03-25 COVID-19 VACCINE (3 - [facility] Test 14:48:42 Booster for Pfizer series) [code = COVID-19 VACCINE (3 - Booster for Pfizer series)] Future Scheduled 2022-03-25 65+ [facility] 14:48:42 VACCINE (4 - PPSV23 if available, else PCV20) [code = 65+ PNEUMOCOCCAL VACCINE (4 - PPSV23 if available, else PCV20)] Future Scheduled 2022-03-25 INFLUENZA VACCINE [facility] Test 14:48:42 [code = INFLUENZA VACCINE] Future Scheduled 2022-03-25 SHINGLES VACCINES (1 [facility] Test 14:48:42 of 2) [code = SHINGLES VACCINES (1 of 2)] Future Scheduled 2022-03-25 BREAST CANCER [facility] Test 14:48:42 SCREENING [code = BREAST CANCER SCREENING] Future Scheduled 2022-03-25 COLONOSCOPY SCREENING [facility] Test 14:48:42 [code = COLONOSCOPY SCREENING] Future Scheduled 2022-03-25 HEPATITIS B VACCINES [facility] Test 14:48:42 (1 of 3 - Risk 3-dose series) [code = HEPATITIS B VACCINES (1 of 3 - Risk 3-dose series)] Future Scheduled 2022-03-25 COVID-19 VACCINE (3 - [facility] Test 14:48:42 Booster for Pfizer series) [...] Future Scheduled 2022-03-25 SHINGLES VACCINES (1 [facility] Test 14:48:42 of 2) [code = SHINGLES VACCINES (1 of 2)] Future Scheduled 2022-03-25 BREAST CANCER [facility] Test 14:48:42 SCREENING [code = BREAST CANCER SCREENING] Future Scheduled 2022-03-25 COLONOSCOPY SCREENING [facility] Test 14:48:42 [code = COLONOSCOPY SCREENING] Future Scheduled 2022-03-25 HEPATITIS B VACCINES [facility] Test 14:48:42 (1 of 3 - Risk 3-dose series) [code = HEPATITIS B VACCINES (1 of 3 - Risk 3-dose series)] Future Scheduled 2022-03-25 COVID-19 VACCINE (3 - [facility] Test 14:48:42 Booster for [...] Future Scheduled 2022-03-25 SHINGLES VACCINES (1 [facility] Test 14:48:42 of 2) [code = SHINGLES VACCINES (1 of 2)] Future Scheduled 2022-03-25 BREAST CANCER [facility] Test 14:48:42 SCREENING [code = BREAST CANCER SCREENING] Future Scheduled 2022-03-25 COLONOSCOPY SCREENING [facility] Test 14:48:42 [code = COLONOSCOPY SCREENING] Future Scheduled 2022-03-25 HEPATITIS B VACCINES [facility] Test 14:48:42 (1 of 3 - [...] Future Scheduled 2022-03-25 SHINGLES VACCINES (1 [facility] Test 14:48:42 of 2) [code = SHINGLES VACCINES (1 of 2)] Future Scheduled 2022-03-25 BREAST CANCER [facility] Test 14:48:42 SCREENING [code = BREAST CANCER SCREENING] Future Scheduled 2022-03-25 COLONOSCOPY SCREENING [facility] Test 14:48:42 [code = COLONOSCOPY SCREENING] Future Scheduled 2022-03-25 HEPATITIS B VACCINES [facility] Test 14:48:42 (1 of 3 - Risk 3-dose series) [code = HEPATITIS B VACCINES (1 of 3 - Risk 3-dose series)] Future Scheduled 2022-03-25 COVID-19 VACCINE (3 - [facility] Test 14:48:42 Booster for Pfizer series) [...] Future Scheduled 2022-03-04 SHINGLES VACCINES (1 [facility] Test 14:03:57 of 2) [code = SHINGLES VACCINES (1 of 2)] Future Scheduled 2022-03-04 BREAST CANCER [facility] Test 14:03:57 SCREENING [code = BREAST CANCER SCREENING] Future Scheduled 2022-03-04 COLONOSCOPY SCREENING [facility] Test 14:03:57 [code = COLONOSCOPY SCREENING] Future Scheduled 2022-03-04 HEPATITIS B VACCINES [facility] Test 14:03:57 (1 of 3 - Risk 3-dose series) [code = HEPATITIS B VACCINES (1 of 3 - Risk 3-dose series)] Future Scheduled 2022-03-04 COVID-19 VACCINE (3 - [facility] Test 14:03:57 Booster for Pfizer series) [...] Future Scheduled 2022-03-04 SHINGLES VACCINES (1 [facility] Test 14:03:57 of 2) [code = SHINGLES VACCINES (1 of 2)] Future Scheduled 2022-03-04 BREAST CANCER [facility] Test 14:03:57 SCREENING [code = BREAST CANCER SCREENING] Future Scheduled 2022-03-04 COLONOSCOPY SCREENING [facility] Test 14:03:57 [code = COLONOSCOPY SCREENING] Future Scheduled 2022-03-04 HEPATITIS B VACCINES [facility] Test 14:03:57 (1 of 3 - Risk 3-dose series) [code = HEPATITIS B VACCINES (1 of 3 - Risk 3-dose series)] Future Scheduled 2022-03-04 COVID-19 VACCINE (3 - [facility] Test 14:03:57 Booster for Pfizer series) [code = COVID-19 VACCINE (3 - Booster for Pfizer series)] Future Scheduled 2022-03-04 65+ PNEUMOCOCCAL [facility] Test 14:03:57 VACCINE (4 - PPSV23 if available, else PCV20) [code = 65+ PNEUMOCOCCAL VACCINE (4 - PPSV23 if available, else PCV20)] Future Scheduled 2022-03-04 INFLUENZA VACCINE [facility] Test 14:03:57 [code = INFLUENZA VACCINE] Future Scheduled 2022-03-04 SHINGLES VACCINES (1 [facility] Test 14:03:57 of 2) [code = SHINGLES VACCINES (1 of 2)] Future Scheduled 2022-03-04 BREAST CANCER [facility] Test 14:03:57 SCREENING [code = BREAST CANCER SCREENING] Future Scheduled 2022-03-04 COLONOSCOPY SCREENING [facility] Test 14:03:57 [code = COLONOSCOPY SCREENING] Future Scheduled 2022-03-04 HEPATITIS B VACCINES [facility] Test 14:03:57 (1 of 3 - Risk 3-dose series) [code = HEPATITIS B VACCINES (1 of 3 - Risk 3-dose series)] Future Scheduled 2022-03-04 COVID-19 VACCINE (3 - [facility] Test 14:03:57 Booster for Pfizer series) [code = COVID-19 VACCINE (3 - Booster for Pfizer series)] Future Scheduled 2022-03-04 65+ [facility] 14:03:57 VACCINE (4 - PPSV23 if available, else PCV20) [code = 65+ PNEUMOCOCCAL VACCINE (4 - PPSV23 if available, else PCV20)] Future Scheduled 2022-03-04 INFLUENZA VACCINE Method [facility] Test 14:03:57 [code = INFLUENZA VACCINE] Future Scheduled 2022-03-04 SHINGLES VACCINES (1 [facility] Test 14:03:57 of 2) [code = SHINGLES VACCINES (1 of 2)] Future Scheduled 2022-03-04 BREAST CANCER [facility] Test 14:03:57 SCREENING [code = BREAST CANCER SCREENING] Future Scheduled 2022-03-04 COLONOSCOPY SCREENING [facility] Test 14:03:57 [code = COLONOSCOPY SCREENING] Future Scheduled 2022-03-04 HEPATITIS B VACCINES [facility] Test 14:03:57 (1 of 3 - Risk 3-dose series) [code = HEPATITIS B VACCINES (1 of 3 - Risk 3-dose series)] Future Scheduled 2022-03-04 COVID-19 VACCINE (3 - [facility] Test 14:03:57 Booster for Pfizer series) [code = COVID-19 VACCINE (3 - Booster for Pfizer series)] Future Scheduled 2022-03-04 65+ [facility]CCAL [facility] Test 14:03:57 VACCINE (4 - PPSV23 if available, else PCV20) [code = 65+ PNEUMOCOCCAL VACCINE (4 - PPSV23 if available, else PCV20)] Future Scheduled 2022-03-04 INFLUENZA VACCINE Method [facility] Test 14:03:57 [code = INFLUENZA VACCINE] Future Scheduled 2022-02-11 SHINGLES VACCINES (1 [facility] Test 13:39:12 of 2) [code = SHINGLES VACCINES (1 of 2)] Future Scheduled 2022-02-11 BREAST CANCER [facility] Test 13:39:12 SCREENING [code = BREAST CANCER SCREENING] Future Scheduled 2022-02-11 COLONOSCOPY SCREENING [facility] Test 13:39:12 [code = COLONOSCOPY SCREENING] Future Scheduled 2022-02-11 HEPATITIS B VACCINES [facility] Test 13:39:12 (1 of 3 - Risk 3-dose series) [code = HEPATITIS B VACCINES (1 of 3 - Risk 3-dose series)] Future Scheduled 2022-02-11 COVID-19 VACCINE (3 - [facility] Test 13:39:12 Booster for Pfizer series) [code = COVID-19 VACCINE (3 - Booster for Pfizer series)] Future Scheduled 2022-02-11 65+ PNEUMOCOCCAL [facility] Test 13:39:12 VACCINE (4 - PPSV23 or PCV20) [code = 65+ PNEUMOCOCCAL VACCINE (4 - PPSV23 or PCV20)] Future Scheduled 2022-02-11 INFLUENZA VACCINE Method [facility] Test 13:39:12 [code = INFLUENZA VACCINE] Future Scheduled 2022-01-29 SHINGLES VACCINES (1 [facility] Test 14:07:20 of 2) [code = SHINGLES VACCINES (1 of 2)] Future Scheduled 2022-01-29 BREAST CANCER [facility] Test 14:07:20 SCREENING [code = BREAST CANCER SCREENING] Future Scheduled 2022-01-29 COLONOSCOPY SCREENING [facility] Test 14:07:20 [code = COLONOSCOPY SCREENING] Future Scheduled 2022-01-29 HEPATITIS B VACCINES [facility] Test 14:07:20 (1 of 3 - Risk 3-dose series) [code = HEPATITIS B VACCINES (1 of 3 - Risk 3-dose series)] Future Scheduled 2022-01-29 COVID-19 VACCINE (3 - [facility] Test 14:07:20 Booster for Pfizer series) [code = COVID-19 VACCINE (3 - Booster for Pfizer series)] Future Scheduled 2022-01-29 65+ PNEUMOCOCCAL [facility] Test 14:07:20 VACCINE (4 - PPSV23 or PCV20) [code = 65+ PNEUMOCOCCAL VACCINE (4 - PPSV23 or PCV20)] Future Scheduled 2022-01-29 INFLUENZA VACCINE Method [facility] Test 14:07:20 [code = INFLUENZA VACCINE] Future Scheduled 2022-01-29 SHINGLES VACCINES (1 [facility] Test 14:07:20 of 2) [code = SHINGLES VACCINES (1 of 2)] Future Scheduled 2022-01-29 BREAST CANCER [facility] Test 14:07:20 SCREENING [code = BREAST CANCER SCREENING] Future Scheduled 2022-01-29 COLONOSCOPY SCREENING [facility] Test 14:07:20 [code = COLONOSCOPY SCREENING] Future Scheduled 2022-01-29 HEPATITIS B VACCINES [facility] Test 14:07:20 (1 of 3 - Risk 3-dose series) [code = HEPATITIS B VACCINES (1 of 3 - Risk 3-dose series)] Future Scheduled 2022-01-29 COVID-19 VACCINE (3 - [facility] Test 14:07:20 Booster for Pfizer series) [code = COVID-19 VACCINE (3 - Booster for Pfizer series)] Future Scheduled 2022-01-29 65+ PNEUMOCOCCAL [facility] Test 14:07:20 VACCINE (4 - PPSV23 or PCV20) [code = 65+ PNEUMOCOCCAL VACCINE (4 - PPSV23 or PCV20)] Future Scheduled 2022-01-29 INFLUENZA VACCINE Method [facility] Test 14:07:20 [code = INFLUENZA VACCINE] Future Scheduled 2022-01-29 SHINGLES VACCINES (1 [facility] Test 14:07:20 of 2) [code = SHINGLES VACCINES (1 of 2)] Future Scheduled 2022-01-29 BREAST CANCER [facility] Test 14:07:20 SCREENING [code = BREAST CANCER SCREENING] Future Scheduled 2022-01-29 COLONOSCOPY SCREENING [facility] Test 14:07:20 [code = COLONOSCOPY SCREENING] Future Scheduled 2022-01-29 HEPATITIS B VACCINES [facility] Test 14:07:20 (1 of 3 - Risk 3-dose series) [code = HEPATITIS B VACCINES (1 of 3 - Risk 3-dose series)] Future Scheduled 2022-01-29 COVID-19 VACCINE (3 - [facility] Test 14:07:20 Booster for Pfizer series) [code = COVID-19 VACCINE (3 - Booster for Pfizer series)] Future Scheduled 2022-01-29 65+ PNEUMOCOCCAL [facility] Test 14:07:20 VACCINE (4 - PPSV23 or PCV20) [code = 65+ PNEUMOCOCCAL VACCINE (4 - PPSV23 or PCV20)] Future Scheduled 2022-01-29 INFLUENZA VACCINE Method [facility] Test 14:07:20 [code = INFLUENZA VACCINE] Future Scheduled 2022-01-29 SHINGLES VACCINES (1 [facility] Test 14:07:20 of 2) [code = SHINGLES VACCINES (1 of 2)] Future Scheduled 2022-01-29 BREAST CANCER [facility] Test 14:07:20 SCREENING [code = BREAST CANCER SCREENING] Future Scheduled 2022-01-29 COLONOSCOPY SCREENING [facility] Test 14:07:20 [code = COLONOSCOPY SCREENING] Future Scheduled 2022-01-29 HEPATITIS B VACCINES [facility] Test 14:07:20 (1 of 3 - Risk 3-dose series) [code = HEPATITIS B VACCINES (1 of 3 - Risk 3-dose series)] Future Scheduled 2022-01-29 COVID-19 VACCINE (3 - [facility] Test 14:07:20 Booster for Pfizer series) [code = COVID-19 VACCINE (3 - Booster for Pfizer series)] Future Scheduled 2022-01-29 65+ PNEUMOCOCCAL [facility] Test 14:07:20 VACCINE (4 - PPSV23 or PCV20) [code = 65+ PNEUMOCOCCAL VACCINE (4 - PPSV23 or PCV20)] Future Scheduled 2022-01-29 INFLUENZA VACCINE Method [facility] Test 14:07:20 [code = INFLUENZA VACCINE] Future Scheduled 2022-01-20 SHINGLES VACCINES (1 [facility] Test 06:12:34 of 2) [code = SHINGLES VACCINES (1 of 2)] Future Scheduled 2022-01-20 Screening for [facility] Test 06:12:34 malignant neoplasm of cervix (procedure) [code = 913498421] Future Scheduled 2022-01-20 BREAST CANCER [facility] Test 06:12:34 SCREENING [code = BREAST CANCER SCREENING] Future Scheduled 2022-01-20 COLONOSCOPY SCREENING [facility] Test 06:12:34 [code = COLONOSCOPY SCREENING] Future Scheduled 2022-01-20 HEPATITIS B VACCINES [facility] Test 06:12:34 (1 of 3 - Risk 3-dose series) [code = HEPATITIS B VACCINES (1 of 3 - Risk 3-dose series)] Future Scheduled 2022-01-20 COVID-19 VACCINE (3 - [facility] Test 06:12:34 Booster for Pfizer series) [code = COVID-19 VACCINE (3 - Booster for Pfizer series)] Future Scheduled 2022-01-20 65+ PNEUMOCOCCAL [facility] Test 06:12:34 VACCINE (4 - PPSV23 or PCV20) [code = 65+ PNEUMOCOCCAL VACCINE (4 - PPSV23 or PCV20)] Future Scheduled 2022-01-20 INFLUENZA VACCINE Method [facility] Test 06:12:34 [code = INFLUENZA VACCINE] Future Scheduled 2022-01-16 SHINGLES VACCINES (1 [facility] Test 12:09:25 of 2) [code = SHINGLES VACCINES (1 of 2)] Future Scheduled 2022-01-16 Screening for [facility] Test 12:09:25 malignant neoplasm of cervix (procedure) [code = [id number]] Future Scheduled 2022-01-16 BREAST CANCER [facility] Test 12:09:25 SCREENING [code = BREAST CANCER SCREENING] Future Scheduled 2022-01-16 COLONOSCOPY SCREENING [facility] Test 12:09:25 [code = COLONOSCOPY SCREENING] Future Scheduled 2022-01-16 HEPATITIS B VACCINES [facility] Test 12:09:25 (1 of 3 - Risk 3-dose series) [code = HEPATITIS B VACCINES (1 of 3 - Risk 3-dose series)] Future Scheduled 2022-01-16 COVID-19 VACCINE (3 - [facility] Test 12:09:25 Booster for Pfizer series) [code = COVID-19 VACCINE (3 - Booster for Pfizer series)] Future Scheduled 2022-01-16 65+ [facility] 12:09:[facility] VACCINE (4 - PPSV23 or PCV20) [code = 65+ PNEUMOCOCCAL VACCINE (4 - PPSV23 or PCV20)] Future Scheduled 2022-01-16 INFLUENZA VACCINE Method [facility] Test 12:09:25 [code = INFLUENZA VACCINE] Future Scheduled 2022-01-14 SHINGLES VACCINES (1 [facility] Test 04:11:46 of 2) [code = SHINGLES VACCINES (1 of 2)] Future Scheduled 2022-01-14 Screening for [facility] Test 04:11:46 malignant neoplasm of cervix (procedure) [code = [id number]] Future Scheduled 2022-01-14 BREAST CANCER [facility] Test 04:11:46 SCREENING [code = BREAST CANCER SCREENING] Future Scheduled 2022-01-14 COLONOSCOPY SCREENING [facility] Test 04:11:46 [code = COLONOSCOPY SCREENING] Future Scheduled 2022-01-14 HEPATITIS B VACCINES [facility] Test 04:11:46 (1 of 3 - Risk 3-dose series) [code = HEPATITIS B VACCINES (1 of 3 - Risk 3-dose series)] Future Scheduled 2022-01-14 COVID-19 VACCINE (3 - [facility] Test 04:11:46 Booster for Pfizer series) [code = COVID-19 VACCINE (3 - Booster for Pfizer series)] Future Scheduled 2022-01-14 [facility] 04:11:46 VACCINE (4 - PPSV23 or PCV20) [code = 65+ PNEUMOCOCCAL VACCINE (4 - PPSV23 or PCV20)] Future Scheduled 2022-01-14 INFLUENZA VACCINE Method [facility] Test 04:11:46 [code = INFLUENZA VACCINE] Future Scheduled 2021-08-26 Screening for [facility] Test 13:02:23 malignant neoplasm of cervix (procedure) [code = [id number]] Future Scheduled 2021-08-26 BREAST CANCER [facility] Test 13:02:23 SCREENING [code = BREAST CANCER SCREENING] Future Scheduled 2021-08-26 COLONOSCOPY SCREENING [facility] Test 13:02:23 [code = COLONOSCOPY SCREENING] Future Scheduled 2021-08-26 Screening for [facility] Test 13:02:23 malignant neoplasm of lung (procedure) [code = [id number]] Future Scheduled 2021-08-26 SHINGLES VACCINES (#1) [facility] Test 13:02:23 [code = SHINGLES VACCINES (#1)] Future Scheduled 2021-08-26 COVID-19 VACCINE (3 - [facility] Test 13:02:23 Pfizer risk 4-dose series) [code = COVID-19 VACCINE (3 - Pfizer risk 4-dose series)] Future Scheduled 2021-08-26 65+ PNEUMOCOCCAL [facility] Test 13:02:23 VACCINE (4 of 4 - PPSV23) [code = 65+ PNEUMOCOCCAL VACCINE (4 of 4 - PPSV23)] Future Scheduled 2021-08-26 INFLUENZA VACCINE Method [facility] Test 13:02:23 [code = INFLUENZA VACCINE] Encounters Start End Encounter Admission Attending Care Care Encounter Source Date/Time Date/Time Type Type Clinicians Facility Department ID 2022-02-18 Outpatient [facility] [id number] [place] 14:30:[address] [place] [address] 2021-07-14 Outpatient SADIKOVIC, [facility] [id number] [place] 09:33:51 [facility] 2021-06-02 Outpatient HEMATPOUR, [facility] [id number] [place] 13:58:59 [facility] 2021-04-28 Outpatient HEMATPOUR, [facility] [id number] [place] 11:21:22 [facility] 2021-03-20 Emergency [facility] [id number] Univers [facility] H[facility], [facility] [id number] [place] 08:16:46 [facility] 2020-10-31 Outpatient HEMATPOUR, [facility] [id number] [place] 09:44:50 [facility] 2020-09-30 Outpatient HEMATPOUR, [facility] [id number] [place] 13:16:03 [facility] 2022-11-26 2022-11-26 Outpatient R [facility] [id number] Univers 08:30:00 08:30:00 [facility] 2022-11-15 2022-11-15 Outpatient R [facility] [id number] Univers 08:30:00 08:30:00 [facility] 2022-11-02 2022-11-02 Outpatient R [facility] [id number] Univers 08:30:00 08:30:00 [facility] 2022-10-27 2022-10-27 Telephone [place], UNIVERS[place] 1.2.840.114 [id number] Univers 00:00:00 00:00:00 [facility] [id number] i [place] [id number] [address] 2022-10-06 2022-10-06 Outpatient R [facility] [id number] Univers 09:30:00 09:30:00 [facility] 2022-09-26 2022-09-26 Refill [facility], UNIVERSIT 1.2.821.832 [id number] Univers 00:00:00 00:00:00 [facility] 350.1.13.10 [id number] [address] 2022-09-03 2022-09-03 Outpatient R [facility] [id number] Univers 11:00:00 11:00:00 [facility] 2022-08-24 2022-08-24 Refill [place], 1.2.840.0 [id number] Univers 00:00:00 00:00:00 [place] 80273.1.1 ity of 3.104.2.7 [place] .3.621079 Medica l .8 [place] 2022-05-20 2022-05-20 Telephone [facility], [facility] 1.2.840.114 [id number] Univers 00:00:00 00:00:00 [facility] [id number] i [place] [id number] [address] 2022-05-10 2022-05-10 Emergency [facility] [id number] Univers 10:30:00 16:31:00 HOME ity [facility] 2022-05-10 2022-05-10 Emergency Perrin, TRAUMA 1.2.840.114 [id number] Univers 10:30:00 16:31:00 [facility] 350.1.13.10 [place] [id number] [facility] [address] 2022-05-10 2022-05-10 Telephone [facility] 1.2.840.114 [id number] Univers 00:00:00 00:00:00 [facility] 350.1.13.10 i [place] [id number] [address] 2022-05-08 2022-05-08 Emergency [facility] E[facility] [id number] Univers 16:18:00 18:42:00 THERESA ity [facility] 2022-05-08 2022-05-08 Emergency [facility] 1.2.840.114 [id number] Univers 16:18:00 18:42:00 Theresa BULLOCK 350.1.13.10 [place] [id number] [address] 2022-05-07 2022-05-07 Telephone [facility] 1.2.840.114 [id number] Univers 00:00:00 00:00:00 [facility] 350.1.13.10 i [place] [id number] [address] 2022-05-06 2022-05-06 Emergency X EMMIE [facility] ERT [id number] Univers 14:13:00 18:19:00 ANETTE charlie [facility] 2022-05-06 2022-05-06 Emergency [facility] 1.2.853.977 [id number] Univers 14:13:00 18:19:00 Anette BULLOCK 350.1.13.10 ity of [place] 4.2.7.2.686 [facility] [id number] [address] 2022-05-06 2022-05-06 Telephone JOSÉ ANTONIO Cardenas 1.2.840.114 [id number] Univers 00:00:00 00:00:00 [facility] 350.1.13.10 i [place] [id number] [address] 2022-04-22 2022-04-22 Emergency [facility] ERT [id number] Univers 13:55:00 17:00:00 PAULETTE [facility] 2022-04-22 2022-04-22 Emergency [facility] 1.2.477.384 [id number] Univers 13:55:00 17:00:00 [facility] 350.1.13.10 i ty of [place] 4.2.7.2.686 [facility] [id number] [address] 2022-04-07 2022-04-07 Outpatient R UNKNOWN, [facility] [id number] Univers 20:40:00 20:40:00 ATTENDING ity [facility] 2022-04-07 2022-04-07 Telephone Devin 1.2.840.4 [id number] Univers 00:00:00 00:00:00 Robbi Hairston 10663.1.1 i ty of 3.104.2.7 [place] .3.744285 Medica l .8 [place] 2022-03-05 2022-03-05 Receiving Operator Santiago Cardenas 1.2.840.1 [id number] Univers 13:45:00 14:00:00 Visit [facility] 80022.1.1 ity of 3.104.2.7 [place] .3.719131 Medica l .8 [place] 2022-03-05 2022-03-05 [facility] 1.2.372.148 [id number] Univers 13:00:00 13:30:00 Visit Santiago [facility] 350.1.13.10 i ty [place] [id number] Medi porfirio 089 [place] 2022-03-05 2022-03-05 Outpatient R [facility] [id number] Univers 13:00:00 13:00:00 [facility] 2022-02-26 2022-02-26 Outpatient R [facility] [id number] Univers 08:30:00 08:30:00 [facility] 2022-02-26 2022-02-26 Outpatient R [facility] [id number] Univers 08:30:00 08:30:00 [facility] 2022-02-17 2022-02-17 Transition Stevo, 1.2.840.7 [id number] Univers 00:00:00 00:00:00 of Care Isaias Arredondo 18945.1.1 it y of 3.104.2.7 [place] .3.609623 Medica l .8 [place] 2022-02-10 2022-02-16 Inpatient X [facility] [id number] Univers 22:59:00 19:27:00 TOMY itcharlie [facility] 2022-02-10 2022-02-16 Hospital Reilly Means 1.2.840.1 [id number] Univers 22:59:00 19:27:00 Encounter Ofe Shields 63446.1.1 ity of [place].2.[place] .3.894862 Medica l .8 [place] 2022-02-11 2022-02-11 Telephone East, 1.2.840.6 [id number] Univers 00:00:00 00:00:00 Santiago 61649.1.1 ity of 3.104.2.7 [place] .3.982598 Medica l .8 [place] 2022-02-10 2022-02-10 Travel 1.2.840.1 1.2.680.295 [id number] Univers 00:00:00 00:00:00 34919.1.1 350.1.13.10 ity of 3.104.2.7 4[place].3.698 [place] .3.877930 084.8 Medica l .8 [place] 2022-01-30 2022-01-30 Telephone East, 1.2.840.7 [id number] Univers 00:00:00 00:00:00 [place] 63587.1.1 ity of 3.104.2.7 [place] .3.817565 Medica l .8 [place] 2022-01-06 2022-01-06 Orders Doctor FERMIN 1.2.840.114 [id number] Univers 00:00:00 00:00:00 Only Unassigned, JACKELINE 350.1.13.10 ity of [facility] 4.2.7.2.686 Yomi as [id number] [address] 2021-12-25 2021-12-25 Orders Doctor FERMIN 1.2.840.114 [id number] Univers 00:00:00 00:00:00 Only Unassigned, JACKELINE 350.1.13.10 ity of [facility] 4.2.7.2.686 Yomi as [id number] [address] 2021-12-12 2021-12-13 Emergency X Bill COLES [facility] ERT [id number] Univers 23:53:00 01:52:00 ity of [facility] 2021-12-12 2021-12-13 Emergency iBll Coles [facility] 1.2.840.114 [id number] Univers 23:53:00 01:52:00 Kiersten BULLOCK 350.1.13.10 i [place] [id number] [facility] [address] 2021-11-20 2021-11-20 Receiving Operator [facility] UNIVERSIT 1.2.840.114 [id number] Univers 09:45:00 10:00:00 Visit Santiago Cardenas [facility] 350.1.13.10 ity of [facility] 4.2.7.2.686 [place] [id number] [facility] [address] 2021-11-20 2021-11-20 Office [facility] 1.2.293.062 [id number] Univers 08:30:00 09:00:00 Visit [facility] 350.1.13.10 i ty [place] [id number] [facility] 089 [place] 2021-11-20 2021-11-20 Outpatient R [facility] [id number] Univers 08:30:00 08:30:00 [facility] 2021-11-20 2021-11-20 Outpatient R [facility] [id number] Univers 08:30:00 08:30:00 [facility] 2021-11-20 2021-11-20 Outpatient R [facility] [id number] Univers 08:30:00 08:30:00 [facility] 2021-11-20 2021-11-20 Outpatient R [facility] [id number] Univers 08:30:00 08:30:00 [facility] 2021-10-24 2021-10-24 Emergency X WALKER [facility] ERT [id number] Univers 16:27:00 22:26:00 [facility] 2021-10-24 2021-10-24 Emergency X WALKER [facility] ERT [id number] Univers 16:27:00 22:26:00 [facility] 2021-10-24 2021-10-24 Emergency Reilly Means [facility] 1.2.840. 114 [id number] Univers 16:27:00 22:26:00 Charity Mcallister GILLETT 350.1.13.10 ity of [place] 4.2.7.2.686 [facility] [id number] [address] 2021-10-23 2021-10-24 Emergency X PENDING SALE TO [facility], [facility] ERT [id number] Univers 20:22:00 02:57:00 [facility] 2021-10-23 2021-10-24 Emergency [facility] 1.2.189.310 [id number] Univers 20:22:00 02:57[facility] 350.1.13.10 ity [facility] 4.2.7.2.686 [facility] [id number] [address] 2021-09-07 2021-09-07 Outpatient R SELF, [facility] [id number] Univers 08:00:00 08:00:00 GADIEL familia vogel [facility] 2021-09-07 2021-09-07 Outpatient R SELF, [facility] [id number] Univers 08:00:00 08:00:00 GADIEL rodas [facility] 2021-08-21 2021-08-21 Outpatient R EAST, [facility] [id number] Univers 10:45:00 10:45:00 SANTIAGO barbosa [facility] 2021-08-21 2021-08-21 Receiving Operator Santiago Cardenas 1.2.840.1 [id number] Univers 10:45:00 10:45:00 Visit [facility] 98076.1.1 ity of 3.104.2.7 [place] .3.883970 Medica l .8 [place] 2021-08-21 2021-08-21 Office Ronald, 1.2.840.3 [id number] Univers 08:30:00 09:00:00 Visit Santiago 75831.1.1 ity of 3.104.2.7 [place] .3.367975 Medica l .8 [place] 2021-08-21 2021-08-21 Office Ronald, UNIVERSIT 1.2.867.224 [id number] Univers 08:30:00 09:00:00 Visit Santiago [facility] 350.1.13.10 i ty of [facility] 4.2.7.2.686 [facility] s [id number] [facility] porfirio 089 [place] 2021-08-21 2021-08-21 Outpatient [facility] [id number] Univers 08:30:00 08:30:00 [place] barbosa [facility] 2021-08-21 2021-08-21 Travel 1.2.840.1 [id number] [id number] Univers 00:00:00 00:00:00 55859.1.1 350.1.13.10 ity of 3.104.2.[place] 4.[place].3.698 [place] .3.395575 084.8 Medica l .8 [facility] 2021-08-14 2021-08-14 Telephone [place], 1.2.840.4 [id number] Univers 00:00:00 00:00:00 [place] 18227.1.1 ity of 3.104.2.7 [place] .3.387152 Medica l .8 [facility] 2021-08-13 2021-08-13 Telephone [place], 1.2.840.7 [id number] Univers 00:00:00 00:00:00 [place] 01231.1.1 ity of 3.104.2.7 [place] .3.846277 Medica l .8 [place] 2021-08-11 2021-08-11 Outpatient [facility] [id number] Univers 08:00:00 08:00:00 [place] [facility] 2021-08-05 2021-08-05 Inpatient RAUL [place], [facility] [id number] [facility] 05:24:00 05:24:00 Mike 31 [facility] 2021-07-20 2021-07-20 Outpatient [facility] [id number] Univers 10:00:00 10:00:00 [facility] [place] 2021-07-14 2021-07-14 Office KIMBERLEY Lira 6400 1.2.840.114 13 [id number] [place] 08:45:00 09:34:01 Visit Elan ROMERO 350.1.13.58 [facility] 9.2.7.2.686 [id number] 1 2021-07-09 2021-07-09 Telephone [place], UTP 6400 1.2.840.114 [id number] [place] 00:00:00 00:00:[address] 350.1.13.58 Health 9.2.7.2.686 [id number] 1 2021-07-09 2021-07-09 Telephone [place], UTP 6400 1.2.840.114 [id number] [place] 00:00:00 00:00:[address] 350.1.13.58 Health 9.2.7.2.686 [id number] 1 2021-07-03 2021-07-03 Outpatient R EAST, [facility] [id number] Univers 08:00:00 08:00:00 SANTIAGO barbosa [facility] 2021-06-17 2021-06-17 Inpatient EL Rasgary, HCACL INTE.02 [id number] [facility] 10:56:00 14:36:00 Mike 47 [facility] 2021-06-15 2021-06-15 Outpatient R SELF, [facility] [id number] Univers 10:15:00 11:07:21 GADIEL barbosa [facility] 2021-06-15 2021-06-15 Outpatient R SELF, [facility] [id number] Univers 10:15:00 10:15:00 [facility] 2021-06-15 Outpatient R SELF, [facility] [id number] Univers 10:15:00 10:15:00 GADIEL ity [facility] 2021-06-15 2021-06-15 Orders Doctor 1.2.840.5 [id number] 775 Univers 00:00:00 00:00:00 Only Unassigned, 20054.1.1 ity of [place] 3.104.2.7 [place] .3.333485 Medica l .8 Branch 2021-06-15 2021-06-15 Travel 1.2.840.1 1.2.462.275 8189 7719 Univers 00:00:00 00:00:00 33634.1.1 350.1.13.10 ity of 3.104.2.7 4.[place].7.3.698 [place] .3.181414 084.8 Medica l .8 Branch 2021-06-11 2021-06-11 Refill East, [facility] 1.2.298.797 4953 9185 Univers 00:00:00 00:00:00 [facility] 350.1.13.10 i ty of CLINICS 4.2.7.2.686 [place] 775.7900486 [facility] 089 Branch 2021-06-11 2021-06-11 Refill East, 1.2.840.0 [id number] 60369 185 Univers 00:00:00 00:00:00 Santiago 10310.1.1 ity of 3.104.2.7 [place] .3.536057 Medica l .8 [place] 2021-06-05 2021-06-05 Outpatient R [facility] [id number] Univers 09:00:00 09:00:00 SANTIAGO ity of [facility] 2021-06-02 2021-06-02 Telephone [facility], UNIVERSIT 1.2.840.114 90 [id number] Univers 00:00:00 00:00:00 [facility] 350.1.13.10 i ty of CLINICS 4[place].7.2.686 [place] 154.4387822 [place] [id number] [place] 2021-06-02 2021-06-02 Telephone East, 1.2.840.8 [id number] 903 86653 Univers 00:00:00 00:00:00 Santiago 12449.1.1 ity of 3.104.2.7 [place] .3.925352 Medica l .8 Branch 2021-05-29 2021-05-29 Telephone East, 1.2.840.9 [id number] 902 60044 Univers 00:00:00 00:00:00 Santiago 60892.1.1 ity of 3.104.2.7 [place] .3.663868 Medica l .8 Branch 2021-05-29 2021-05-29 Telephone East, 1.2.840.5 [id number] 902 15552 Univers 00:00:00 00:00:00 [place] 74700.1.1 [facility] 3.104.2.7 [place] [phone] [facility] Branch 2021-05-25 2021-05-25 Outpatient R SELF, [facility] [id number] Univers 08:00:00 08:00:00 GADIEL macielcharlie o [facility] 2021-04-29 2021-04-29 Outpatient R LALA, [facility] [id number] Univers 08:00:00 08:00:00 NIKOLAI raheemcharlie [facility] 2021-04-28 2021-04-28 Telephone Ap, [facility] 6400 1.2.840.114 [id number] [place] 00:00:00 00:00:[address]am[address] 350.1.13.58 Health 9.2.7.2.686 [id number] 1 2021-04-28 2021-04-28 Telephone Jailyn 1.2.840.2 [id number] 21 [id number] Methodi 00:00:00 00:00:[address] 3.430.2.7 Hospit a .3.822370 l .8 2021-03-31 2021-03-31 Orders Carol Ann 1.2.840.1 [id number] 21 [id number] Methodi 00:00:00 00:00:00 Only Sarai EmeraldChelsie 72829.1.1 979 s t 3.430.2.7 Hospit a .3.692684 l .8 2021-03-30 2021-03-30 Outpatient R SELF, [facility] [id number] Univers 08:45:00 08:45:00 GADIEL rodas [facility] 2021-03-24 2021-03-24 Telephone Jailyn 1.2.840.2 [id number] 21 [id number] Methodi 00:00:00 00:00:[address] 3.430.2.7 Hospit a .3.329552 l .8 2021-02-13 2021-02-13 Telephone Shelby Cardenas.2.840.9 [id number] 876 74866 Univers 00:00:00 00:00:00 Santiago 55048.1.1 ity of 3.104.2.7 [place] .3.077877 Medica l .8 [place] 2021-01-28 2021-01-28 Laure REEVES, [facility] [id number] Univers 08:45:00 09:37:00 NIKOLAI ity of [facility] 2021-01-28 2021-01-28 Travel 1.2.840.1 1.2.304.010 0352 9777 Univers 00:00:00 00:00:00 30525.1.1 350.1.13.10 ity of 3.104.2.7 4.2.7.3.698 [place] .3.228610 084.8 Medica l .8 [place] 2021-01-19 2021-01-19 Telephone [place], 1.2.840.1 [id number] 2100 [id number] Method 00:00:00 00:00:[address] 3.430.2.7 Hospit a .3.324299 l .8 2021-01-04 2021-01-04 Dmitry Bass, 1.2.840.8 [id number] 85995 696 Univers 00:00:00 00:00:00 (Out) Dagoberto H 23890.1.1 ity of 3.104.2.7 [place] .3.926888 Medica l .8 [place] 2021-01-04 2021-01-04 Dmitry Bass, 1.2.840.6 [id number] 39003 696 Univers 00:00:00 00:00:00 (Out) Dagoberto H 31229.1.1 ity of 3.104.2.7 [place] .3.070224 Medica l .8 Branch 2021-01-03 2021-01-03 Dmitry Bass, 1.2.840.1 [id number] 70048 790 Univers 00:00:00 00:00:00 (Out) Dagoberto H 06998.1.1 ity of 3.104.2.7 [place] .3.983903 Medica l .8 Branch 2021-01-03 2021-01-03 Letter Shelia, 1.2.840.2 [id number] 790 Univers 00:00:00 00:00:00 (Out) Dagoberto Peterson 45458.1.1 ity of 3.104.2.7 [place] .3.296019 Medica l .8 Branch 2021-01-02 2021-01-02 Outpatient R [facility] [id number] 786 Univers 13:40:00 13:40:00 ity of [facility] 2021-01-02 2021-01-02 Laboratory Cuba Franks 1.2.840.8 [id number] [id number] Univers 12:14:13 12:57:34 Only Lab, [facility] [place] 10054.1.1 ity of 3.104.2.7 [place] .3.443830 Medica l .8 [place] 2021-01-02 2021-01-02 Laboratory Cuba Franks 1.2.840.0 [id number] 1274 [id number] Univers 12:14:13 12:57:34 Only Lab, [facility] 75411.1.1 ity of 3.104.2.7 [place] .3.489109 Medica l .8 [place] 2021-01-02 2021-01-02 Travel 1.2.840.1 1.2.524.600 4689 2306 Univers 00:00:00 00:00:00 35302.1.1 350.1.13.10 ity of 3.104.2.7 4.[place].7.3.698 [place] .3.796013 084.8 Medica l .8 [place] 2021-01-02 2021-01-02 Letter Doctor 1.2.840.1 [id number] 74634 948 Univers 00:00:00 00:00:00 (Out) Unassigned, 62916.1.1 ity of [place] 3.104.2.7 [place] .3.727331 Medica l .8 [place] 2021-01-02 2021-01-02 Letter Doctor 1.2.840.2 [id number] 84958 946 Univers 00:00:00 00:00:00 (Out) Unassigned, 55473.1.1 ity of [place] 3.104.2.7 [place] .3.329899 Medica l .8 [place] 2021-01-02 2021-01-02 Travel 1.2.840.1 1.2.243.021 0303 2306 Univers 00:00:00 00:00:00 33653.1.1 350.1.13.10 ity of 3.104.2.7 4.2.7.3.698 [place] .3.168682 084.8 Medica l .8 [place] 2021-01-02 2021-01-02 Letter Doctor 1.2.840.7 [id number] 77505 948 Univers 00:00:00 00:00:00 (Out) Unassigned, 20995.1.1 ity of [place] 3.104.2.7 [place] .3.264564 Medica l .8 [place] 2021-01-02 2021-01-02 Letter Doctor 1.2.840.7 [id number] 946 Univers 00:00:00 00:00:00 (Out) Unassigned, 56463.1.1 ity of [place] 3.104.2.7 [place] .3.110694 Medica l .8 [place] 2020-12-22 2020-12-22 Telephone [place], 1.2.840.9 [id number] 862 18609 Univers 00:00:00 00:00:00 Devina Marika 92955.1.1 i ty of 3.104.2.7 [place] .3.606991 Medica l .8 Branch 2020-12-22 2020-12-22 Telephone [place], 1.2.840.7 [id number] 862 42202 Univers 00:00:00 00:00:00 Eligionda R 18291.1.1 i ty of 3.104.2.7 [place] .3.648173 Medica l .8 [place] 2020-12-12 2020-12-12 Office H[place], UTP 6400 1.2.840.114 12 [id number] [place] 07:42:02 08:18:[address] 350.1.13.58 Health 9.2.7.2.686 795.0418423 1 2020-12-12 2020-12-12 Office Maryjaneporay, UTP 6400 1.2.840.114 12 [id number] 07:42:02 08:18:[address] 350.1.13.58 9.2.7.2.686 562.3673304 1 2020-12-09 2020-12-09 Telephone [facility], 1.2.840.1 [id number] Methodi 00:00:00 00:00:00 Sarai Corbin. 82479.1.1 316 s t 3.430.2.7 Hospit a .3.291573 l .8 2020-12-08 2020-12-08 [facility], 1.2.840.1 [id number] 2100 645887 Methodi 12:35:54 23:59:00 Encounter Ray 07345.1.[address] 3.430.2.7 Hospit a .3.724370 l .8 2020-12-08 2020-12-08 [facility], 1.2.840.1 [id number] 64590 29615 Methodi 17:25:00 17:30:[address] 3.430.2.7 Hospit a .3.885659 l .8 2020-12-08 2020-12-08 Office [facility], 1.2.840.1 [id number] 78849 26630 Methodi 10:30:00 11:39:56 Visit Ray 92020.1.[address] 3.430.2.7 Hospit a .3.568562 l .8 2020-12-08 2020-12-08 Travel 1.2.840.1 1.2.079.604 5184 729345 Methodi 00:00:00 00:00:[address] 3.430.2.7 0.2.7.3.698 spita .3.095755 084.8 l .8 2020-12-02 2020-12-02 Receiving Operator Santiago Cardenas 1.2.840.1 [id number] 316 [id number] Univers 10:20:06 10:36:19 Visit [facility] 76452.1.1 ity of 3.104.2.7 [place] .3.668891 Medica l .8 [place] 2020-12-02 2020-12-02 Receiving Operator Santiago Cardenas 1.2.840.1 [id number] 316 [id number] [facility] 10:20:06 10:36:19 Visit [facility] 22766.1.1 ity of 3.104.2.7 [place] .3.916833 Medica l .8 [place] 2020-12-02 2020-12-02 Receiving Operator [facility] UNIVERSIT 1.2.840.114 8 [id number] 10:20:06 10:36:19 Visit [facility] 350.1.13.10 [facility] 4.2.7.2.686 298.3861215 [facility] 2020-12-02 2020-12-02 Office Ronald, 1.2.840.7 [id number] 88882 528 Univers 08:31:37 09:01:37 Visit Santiago 99993.1.1 ity of 3.104.2.7 [place] .3.968217 Medica l .8 [place] 2020-12-02 2020-12-02 Outpatient R RONALD, [facility] [id number] Univers 09:00:00 09:00:00 SANTIAGO itcharlie of [facility] 2020-11-25 2020-11-25 Office Devin, 1.2.840.3 [id number] 24105 865 Univers 11:06:30 11:58:14 Visit Robbi Hairston 54437.1.1 i ty of 3.104.2.7 [place] .3.779322 Medica l .8 [place] 2020-11-25 2020-11-25 Office Devin 1.2.840.8 [id number] 96154 865 Univers 11:06:30 11:58:14 Visit Robbi Hairston 72616.1.1 i ty of 3.104.2.7 [place] .3.542937 Medica l .8 [place] 2020-11-25 2020-11-25 [facility] 1.2.840.114 [id number] 11:06:30 11:58:14 Visit Robbi Hairston CUSTOMER SERVICE REPRESENTATIVE 350.1.13.10 [facility] 4.2.7.2.686 MATERNAL [id number] & CHILD [address] [place] [address] 2020-11-25 2020-11-25 Outpatient R [facility] [id number] Univers 11:00:00 11:00:00 ity of [facility] 2020-11-25 2020-11-25 Telephone Devin, 1.2.840.3 [id number] 855 31840 Univers 00:00:00 00:00:00 Robbi Hairston 82438.1.1 i ty of 3.104.2.7 [place] .3.042866 Medica l .8 [place] 2020-11-25 2020-11-25 Refill [place], 1.2.840.3 [id number] 36985 592 Univers 00:00:00 00:00:00 Santiago 09806.1.1 ity of 3.104.2.7 [place] .3.991851 Medica l .8 [place] 2020-11-25 2020-11-25 Travel 1.2.840.1 1.2.093.911 0234 0247 Univers 00:00:00 00:00:00 74908.1.1 350.1.13.10 ity of 3.104.2.7 4.2.7.3.698 [place] .3.881574 084.8 Medica l .8 [place] 2020-11-25 2020-11-25 Orders Doctor 1.2.840.3 [id number] 48356 064 Univers 00:00:00 00:00:00 Only Unassigned, 96412.1.1 ity of [place] 3.104.2.7 [place] .3.923725 Medica l .8 [place] 2020-11-25 2020-11-25 Telephone Devin, 1.2.840.0 [id number] 855 45856 Univers 00:00:00 00:00:00 Roshunda R 13036.1.1 i ty of 3.104.2.7 [place] .3.543969 Medica l .8 Branch 2020-11-25 2020-11-25 Refill East, 1.2.840.9 [id number] 96555 592 Univers 00:00:00 00:00:00 Santiago 82046.1.1 ity of 3.104.2.7 [place] .3.694275 Medica l .8 Branch 2020-11-25 2020-11-25 Travel 1.2.840.1 1.2.739.953 7498 0247 Univers 00:00:00 00:00:00 16157.1.1 350.1.13.10 ity of 3.104.2.7 4.2.7.3.698 [place] .3.754867 084.8 Medica l .8 Branch 2020-11-25 2020-11-25 Orders Doctor 1.2.840.9 [id number] 064 Univers 00:00:00 00:00:00 Only Unassigned, 42916.1.1 ity of [place] 3.104.2.7 [place] .3.797977 Medica l .8 Branch 2020-11-25 2020-11-[facility].2.521.943 8433 4592 00:00:00 00:00:00 [facility] 350.1.13.10 CLINICS 4.2.7.2.686 982.7404873 089 2020-11-25 2020-11-25 Telephone Devin [facility] 1.2.196.334 4406 0821 00:00:00 00:00:00 Robbi Hairston CUSTOMER SERVICE REPRESENTATIVE 350.1.13.10 REGIONAL 4.2.7.2.686 MATERNAL 994.5648983 & CHILD [address] [place] [address] 2020-11-14 2020-11-14 Abstract Clark, 1.2.840.1 [id number] 49885 21703 Methodi 00:00:00 00:00:[address] 3.430.2.7 Hospit a .3.800488 l .8 2020-11-14 2020-11-14 Telephone Clark, 1.2.840.1 [id number] 2100 868203 Method 00:00:00 00:00:[address] 3.430.2.7 Hospit a .3.201565 l .8 2020-11-12 2020-11-12 [facility] [id number] [facility] 08:30:00 08:30:00 SANTIAGO barbosa [facility] 2020-11-07 2020-11-07 Telephone Agustina Ortiz UTP 6400 1.2.840.11 4 [id number] [place] 00:00:00 00:00:[address] 350.1.13.58 Health 9.2.7.2.686 615.1318826 1 2020-11-07 2020-11-07 Telephone Diana UTP 6400 1.2.840.114 124 [id number] 00:00:00 00:00:[address] 350.1.13.58 9.2.7.2.686 088.9254332 1 2020-10-31 2020-10-31 Office Hematpour, UTP 6400 1.2.840.114 12 [id number] [place] 07:54:00 09:45:[address] 350.1.13.58 Health 9.2.7.2.686 162.8014854 1 2020-10-30 2020-10-30 Abstract Rody Maguire UTP 6400 1.2.840.1 14 [id number] [place] 00:00:00 00:00:[address] 350.1.13.58 Health 9.2.7.2.686 296.3113140 1 2020-10-29 2020-10-29 Refill Ronald, 1.2.840.9 [id number] 11210 400 [facility] 00:00:00 00:00:00 Santiago 35129.1.1 ity 3.104.2.7 [place] .3.623675 Medica l 8 [place] 2020-10-29 2020-10-29 Refill [place], 1.2.840.7 [id number] 35980 400 Univers 00:00:00 00:00:00 Santiago 05449.1.1 ity of 3.104.2.7 [place] .3.193900 Medica l .8 [place] 2020-10-27 2020-10-27 Telephone Jailyn, 1.2.840.2 [id number] 21 [id number] Methodi 00:00:00 00:00:[address] 3.430.2.7 Hospit a .3.897906 l .8 2020-10-24 2020-10-24 Telephone Clark, 1.2.840.1 [id number] 2100 014226 Methodi 00:00:00 00:00:[address] 3.430.2.7 Hospit a .3.493913 l .8 2020-10-22 2020-10-22 Outpatient R SELF, [facility] [id number] 868 Univers 13:00:00 13:00:00 GADIEL barbosa [facility] 2020-10-22 2020-10-22 Travel 1.2.840.1 1.2.792.390 6709 3839 Univers 00:00:00 00:00:00 76615.1.1 350.1.13.10 ity of 3.104.2.7 4.2.7.3.698 [place] .3.396328 084.8 Medica l .8 [place] 2020-10-22 2020-10-22 Travel 1.2.840.1 1.2.837.302 2324 3839 Univers 00:00:00 00:00:00 07970.1.1 350.1.13.10 ity of 3.104.2.7 4.2.7.3.698 [place] .3.995432 084.8 Medica l .8 [place] 2020-10-13 2020-10-13 Outpatient R SELF, [facility] [id number] Univers 08:45:00 08:45:00 GADIEL barbosa o [facility] 2020-10-06 2020-10-12 Telemedici [facility], 1.2.840.1 [id number] 21 [id number] Methodi 15:30:00 00:08:46 ne Ray 17319.1.[address] 3.430.2.7 Hospit a .3.118506 l .8 2020-09-30 2020-09-30 [facility], 1.2.840.7 [id number] [id number] Methodi 00:00:00 00:00:[address] 3.430.2.7 Hospit a .3.674939 l .8 2020-09-21 2020-09-21 Travel 1.2.840.1 1.2.079.742 8922 375081 Methodi 00:00:00 00:00:[address] 3.430.2.7 0.2.7.3.698 spita .3.728112 084.8 l .8 2020-09-06 2020-09-06 [facility] 1.2.840.1 [id number] 22034 93577 Methodi 17:42:30 23:59:[address] 3.430.2.7 Hospit a .3.038496 l .8 2020-09-06 2020-09-06 [facility], 1.2.840.1 [id number] 2100 716036 Methodi 16:50:00 17:41:00 Encounter Ray [address]162.1.[address] 3.430.2.7 Hospit a .3.577760 l .8 2020-09-05 2020-09-05 [facility], 1.2.840.1 [id number] 2099 041788 Methodi 09:17:00 19:45:00 Encounter Ray [address]609.1.[address] 3.430.2.7 Hospit a .3.120858 l .8 2020-09-05 2020-09-05 [facility], 1.2.840.1 [id number] 43459 20134 Methodi 11:30:00 13:15:[address] 3.430.2.7 Hospit a .3.227657 l .8 2020-09-05 2020-09-05 Anesthesia Remigio, 1.2.840.1 [id number] 505 0371121 Methodi 11:27:00 12:20:00 Event Kirit 57098.1.1 243 s t V. 3.430.2.7 Hospit a .3.082317 l .8 2020-09-05 2020-09-05 Travel 1.2.840.1 1.2.920.942 9236 137060 Methodi 00:00:00 00:00:[address] 3.430.2.7 0.2.7.3.698 Ho spita .3.833376 084.8 l .8 2020-09-04 2020-09-04 Telephone [place], 1.2.840.1 [id number] Methodi 00:00:00 00:00:00 Sarai M. 00759.1.1 762 s t 3.430.2.7 Hospit a .3.622463 l .8 2020-09-02 2020-09-02 Telephone [place], 1.2.840.5 [id number] Methodi 00:00:00 00:00:00 Sarai M. 23439.1.1 344 s t 3.430.2.7 Hospit a .3.222108 l .8 2020-08-29 2020-08-30 Bedded [facility] [id number] [facility] 10:20:00 14:10:00 Outpatient r Marty 00 l [facility] 2020-08-29 2020-08-30 Outpatient HEM[place], [facility] CAR 7500 [facility] 05:20:00 09:10:00 BEVERLY 2020-08-06 2020-08-06 Office [place], 1.2.840.6 [id number] 416 [facility] 08:03:23 09:17:49 Visit Santiago 54547.1.1 ity of 3.104.2.7 [place] .3.034332 Medica l .8 [place] 2020-08-06 2020-08-06 Outpatient R EAST, [facility] [id number] Univers 08:30:00 08:30:00 SANTIAGO ity of [facility] 2020-07-14 2020-07-14 Outpatient R SELF, [facility] [id number] Univers 09:30:00 09:30:00 GADIEL ity o f [facility] 2020-07-14 2020-07-14 Travel 1.2.840.1 1.2.838.345 1132 2575 Univers 00:00:00 00:00:00 48786.1.1 350.1.13.10 ity of 3.104.2.7 4.2.7.3.698 [place] .3.853418 084.8 Medica l .8 [place] 2020-07-14 2020-07-14 Orders Doctor 1.2.840.0 [id number] 79485 309 Univers 00:00:00 00:00:00 Only Unassigned, 21810.1.1 ity of [place] 3.104.2.7 [place] .3.846445 Medica l .8 [place] 2020-06-16 2020-06-16 Outpatient R SELF, [facility] [id number] 239 Univers 08:00:00 08:00:00 GADIEL barbosa o [facility] 2020-06-06 2020-06-06 Telephone Ronald, 1.2.840.3 [id number] 809 11775 Univers 00:00:00 00:00:00 Santiago 72941.1.1 ity of 3.104.2.7 [place] .3.660995 Medica l .8 [place] 2020-06-04 2020-06-04 Receiving Operator Santiago Cardenas 1.2.840.1 [id number] Univers 09:31:58 09:40:12 Visit [facility] 99395.1.1 ity of 3.104.2.7 [place] .3.242251 Medica l .8 [place] 2020-06-04 2020-06-04 Office JOSÉ ANTONIO Cardenas 1.2.550.041 9821 9729 Univers 08:13:41 09:28:25 Visit Santiago [facility] 350.1.13.10 i ty of CLINICS 4.2.7.2.686 Richi bach 810.5818551 [facility] porfirio 089 [place] 2020-06-04 2020-06-04 Outpatient R [facility] [id number] Univers 08:30:00 08:30:00 SANTIAGO [facility] 2020-06-04 2020-06-04 Orders Doctor 1.2.840.4 [id number] 079 Univers 00:00:00 00:00:00 Only Unassigned, 30954.1.1 ity of [place] 3.104.2.7 [place] .3.765590 Medica l .8 [place] 2020-05-19 2020-05-19 Telephone East, 1.2.840.0 [id number] 804 11632 Univers 00:00:00 00:00:00 Santiago 74079.1.1 ity of 3.104.2.7 [place] .3.511803 Medica l .8 [place] 2020-04-24 2020-04-24 Telephone East, 1.2.840.6 [id number] 799 37566 Univers 00:00:00 00:00:00 Santiago 44321.1.1 ity of 3.104.2.7 [place] .3.475306 Medica l .8 [place] 2020-04-14 2020-04-14 Outpatient R [facility] [id number] Univers 09:00:00 09:00:00 [facility] 2020-04-14 2020-04-14 Telephone East, 1.2.840.6 [id number] Univers 00:00:00 00:00:00 [place] 52580.1.1 ity of 3.104.2.7 [place] .3.212706 Medica l .8 [facility] 2020-03-31 2020-03-31 Outpatient R [facility] [id number] Univers 08:30:00 08:30:00 [facility] 2020-03-03 2020-03-03 Outpatient R [facility], [facility] [id number] Univers 08:00:00 08:00:00 GADIEL maciely o f [facility] 2020-03-03 2020-03-03 Outpatient R SELF, [facility] [id number] Univers 08:00:00 08:00:00 GADIEL ity o f [facility] 2020-03-03 2020-03-03 Travel 1.2.840.1 1.2.415.914 [id number] Univers 00:00:00 00:00:00 50584.1.1 350.1.13.10 ity of 3.104.2.[place]698 [place] .3.0635[place] 084.8 Medica l .8 [facility] 2020-02-06 2020-02-06 Telephone [place], 1.2.840.0 [id number] Univers 00:00:00 00:00:00 [place] 68409.1.1 ity of 3.104.2.7 [place] .3.109518 Medica l .8 [place] 2020-01-26 2020-01-26 Emergency Caridad, 1.2.840.8 [id number] Univers 10:03:00 13:05:00 Cynise 33996.1.1 ity of 3.104.2.7 [place] .3.239496 Medica l .8 [place] 2020-01-26 2020-01-26 Travel 1.2.840.1 1.2.409.172 [id number] Univers 00:00:00 00:00:00 19775.1.1 350.1.13.10 ity of 3.104.2.[place].698 [place] .[place].1920[place] 084.8 Medica l .8 [facility] 2020-01-25 2020-01-25 Outpatient R [facility], [facility] [id number] Univers 08:30:00 08:30:00 [place] ity of [facility] 2020-01-25 2020-01-25 Telemedici [place], 1.2.840.1 [id number] Univers 07:36:49 08:06:49 ne Visit [place] 15469.1.1 ity of 3.104.2.7 [place] .3.418805 Medica l .8 [facility] 2020-01-16 2020-01-16 Outpatient R [facility], [facility] [id number] Univers 08:00:00 08:00:00 [place] itcharlie [facility] 2020-01-16 2020-01-16 Telephone [place], 1.2.840.2 [id number] Univers 00:00:00 00:00:00 [place] 30169.1.1 ity of 3.104.2.7 [place] .3.888190 Medica l .8 [facility] 2020-01-14 2020-01-14 Outpatient R SELF, [facility] [id number] Univers 08:00:00 08:00:00 GADIEL barbosa o f [facility] 2019-12-31 2019-12-31 Outpatient R SELF, [facility] [id number] Univers 08:45:00 08:45:00 GADIEL maciely o f [facility] 2019-10-17 2019-10-17 Outpatient R [facility], [facility] [id number] Univers 08:30:00 08:30:00 [place] babrosa [facility] 2019-10-12 2019-10-12 Outpatient R [facility], [facility] [id number] Univers 13:00:00 13:00:00 [place] abrbosa [facility] 2019-10-12 2019-10-12 Telemedici [place], 1.2.840.7 [id number] Univers 07:38:30 08:08:30 ne Visit [place] 81099.1.1 ity of 3.104.2.7 [place] .3.455173 Medica l .8 [facility] 2019-10-08 2019-10-08 Outpatient R SELF, [facility] [id number] Univers 10:15:00 10:15:00 GADIEL barbosa o clark [facility] 2019-10-03 2019-10-03 Case Assman, 1.2.840.6 [id number] Univers 00:00:00 00:00:00 Management Michael Corbin 00122.1.1 i ty of 3.104.2.7 [place] .3.094357 Medica l .8 [facility] 2019-09-27 2019-09-27 Telephone [place], 1.2.840.7 [id number] Univers 00:00:00 00:00:00 [place] 19745.1.1 ity of 3.104.2.7 [place] .3.554703 Medica l .8 [facility] 2019-09-04 2019-09-04 Refill [place], 1.2.840.8 [id number] Univers 00:00:00 00:00:00 [place] 69441.1.1 ity of 3.104.2.7 [place] .3.409118 Medica l .8 [facility] 2019-07-24 2019-07-24 Outpatient R [facility], [facility] [id number] Univers 08:30:00 08:30:00 [place] ity of [facility] 2019-07-17 2019-07-17 Outpatient R [facility], [facility] [id number] Univers 10:00:00 10:00:00 [place] ity of [facility] 2019-06-15 2019-06-15 Telephone [place], 1.2.840.4 [id number] Univers 00:00:00 00:00:00 [place] 82086.1.1 ity of 3.104.2.7 [place] .3.396656 Medica l .8 [facility] 2019-06-13 2019-06-13 Telephone Team, [facility] 1.2.840.4 [id number] Univers 00:00:00 00:00:00 Health 82136.1.1 [place] .3.989033 Medica l .8 [facility] 2019-05-10 2019-05-10 Refill [place], 1.2.840.4 [id number] Univers 00:00:00 00:00:00 [place] 54798.1.1 ity of 3.104.2.7 [place] .3.149373 Medica l .8 [facility] 2019-05-09 2019-05-09 Refill [place], 1.2.840.8 [id number] Univers 00:00:00 00:00:00 [place] 66019.1.1 ity of 3.104.2.7 [place] .3.147047 Medica l .8 [facility] 2019-04-30 2019-04-30 Outpatient R SELF, [facility] [id number] Univers 10:15:00 10:33:05 GADIEL ity o f [facility] 2019-04-18 2019-04-18 Receiving Operator [place] Cardenas 1.2.840.1 [id number] Univers 10:00:39 10:44:31 Visit [facility] 20201.1.1 ity of 3.104.2.7 [place] .3.699508 Medica l .8 [facility] 2019-04-18 2019-04-18 Outpatient R RONALD, [facility] [id number] Univers 10:00:00 10:44:31 [place] ity of [facility] 2019-04-18 2019-04-18 Office Ronald, 1.2.840.7 [id number] Univers 08:27:44 09:53:27 Visit Santiago 94435.1.1 ity of 3.104.2.7 [place] .3.464169 Medica l .8 [place] 2019-04-18 2019-04-18 Orders Doctor 1.2.840.3 [id number] Univers 00:00:00 00:00:00 Only Unassigned, 47792.1.1 ity of [place] 3.104.2.7 [place] .3.160649 Medica l .8 [place] 2019-04-11 2019-04-11 Refill Ronald, 1.2.840.9 [id number] Univers 00:00:00 00:00:00 [place] 08739.1.1 ity of 3.104.2.7 [place] .3.254196 Medica l .8 [place] 2019-04-09 2019-04-09 Refill Ronald, 1.2.840.7 [id number] Univers 00:00:00 00:00:00 Santiago 02110.1.1 ity of 3.104.2.7 [place] .3.843707 Medica l .8 [place] 2019-04-03 2019-04-03 Telephone Team, [facility] 1.2.840.5 [id number] Univers 00:00:00 00:00:00 Health 19221.1.1 [place] .3.456[place] Medica l .8 [place] 2019-03-27 2019-03-27 Telephone Self, 1.2.840.2 [id number] Univers 00:00:00 00:00:00 Gadiel 07885.1.1 ity of 3.104.2.7 [place] .3.550560 Medica l .8 Branch 2019-01-17 2019-01-17 Office East, 1.2.840.4 [id number] Univers 07:37:21 10:32:51 Visit Santiago 20873.1.1 ity of 3.104.2.7 [place] .3.801151 Medica l .8 Branch 2019-01-04 2019-01-12 Office Eveline Hansen 1.2.840.1 [id number] Univers 11:19:32 11:08:05 Visit Mariela 80524.1.1 ity of 3.104.2.7 [place] .3.298250 Medica l .8 Branch 2019-01-10 2019-01-10 Telephone Stanislav, 1.2.840.1 [id number] Univers 00:00:00 00:00:00 Eladio Inman 93545.1.1 ity of 3.104.2.7 [place] .3.359319 Medica l .8 Branch 2018-12-18 2018-12-18 Office Geraldine, 1.2.840.4 [id number] Univers 08:48:45 09:13:43 Visit Leyda 65250.1.1 it y of 3.104.2.7 [place] .3.140118 Medica l .8 Branch 2018-10-30 2018-10-30 Telephone Ronald, 1.2.840.1 [id number] Univers 00:00:00 00:00:00 Santiago 47763.1.1 ity of 3.104.2.7 [place] .3.149165 Medica l .8 Branch 2018-10-23 2018-10-23 Orders Doctor 1.2.840.8 [id number] Univers 00:00:00 00:00:00 Only Unassigned, 93299.1.1 ity of [place] 3.104.2.7 [place] .3.428226 Medica l .8 [place] 2018-10-23 2018-10-23 Nurse Selvin, 1.2.840.0 [id number] Univers 00:00:00 00:00:00 Triage Stefanie 45696.1.1 ity of 3.104.2.7 [place] .3.429158 Medica l .8 Branch 2018-10-23 2018-10-23 Telephone Self, 1.2.840.9 [id number] Univers 00:00:00 00:00:00 Gadiel 39041.1.1 ity of 3.104.2.7 [place] .3.817570 Medica l .8 [place] 2018-10-20 2018-10-20 Telephone Self, 1.2.840.1 [id number] Univers 00:00:00 00:00:00 Gadiel 54716.1.1 ity of 3.104.2.7 [place] .3.890488 Medica l .8 [place] Results Test Description Test Time Test Comments Results Result Comments Source COMP. METABOLIC PANEL (80765) 2022-05-06 22:42:55 Test Item Value Reference Range Interpretation Comme nts NA (test code = 6928992923) 137 mmol/L 135-145 K (test code = 5806511870) 3.2 mmol/L 3.5-5.0 L CL (test code = 9365167280) 100 mmol/L 98-108 CO2 TOTAL (test code = 7139128778) 23 mmol/L 23-31 AGAP (test code = 6979052556) 2-16 BUN (test code = 9486431549) 41 mg/dL 7-23 H GLUCOSE (test code = 9466149310) 98 mg/dL 70-110 CREATININE (test code = 1.55 mg/dL 0.50-1.04 H 3957628803) TOTAL BILI (test code = 0.8 mg/dL 0.1-1.4 6221613864) CALCIUM (test code = 9706570495) 8.3 mg/dL 8.6-10.6 L T PROTEIN (test code = 6995940945) 6.9 g/dL 6.3-8.2 ALBUMIN (test code = 7248782864) 3.9 g/dL 3.5-5.0 ALK PHOS (test code = 0046598878) 89 U/L 34-122 ALTv (test code = 1742-6) 101 U/L 5-35 H AST(SGOT) (test code = 6341836613) 203 U/L 13-40 H eGFR (test code = 5922870219) mL/min/1.73m2 KYLE (test code = KYLE) Association [...] tests). Lab Interpretation (test code = Abnormal 90820-1) [facility] [id number] 22:33:52 Test Item Value Reference Range Interpretation [...] RDW-SD (test code = 46.3 fL 39.0-49.9 23115-6) RDW-CV (test code = 13.5 % 12.0-15.5 788-0) PLT (test code = See_Comment L [Automated 777-3) message] The sy stem which generated this result transmitted reference range : 166 - 358 10*3/ ?L. The reference r abbey was not used to interpret this result as normal/abnormal . MPV (test code = 9.5 fL 9.5-12.9 53389-1) NRBC/100 WBC (test See_Comment [Automat ed code = 7717982911) message] The system which generated this result transmitted reference range : 0.0 - 10.0 /100 WBCs. The refer ence range was not u sed to interpret th is result as normal/abnormal . NRBC x10^3 (test code See_Comment [Auto mated = 2601064367) message] The s ystem which generated this result transmitted reference range : 10*3/?L. The reference range was not used to interpret this result as normal/abnormal . GRAN MAT (NEUT) % 58.3 % (test code = 770-8) IMM GRAN % (test code 0.80 % = 4997660321) LYMPH % (test code = 28.1 % 736-9) MONO % (test code = 12.0 % 5905-5) EOS % (test code = 0.5 % 713-8) BASO % (test code = 0.3 % 706-2) GRAN MAT x10^3(ANC) 2.29 10*3/uL 1.88-7.09 (test code = 9661888733) IMM GRAN x10^3 (test 0.03 10*3/uL 0.00-0.06 code = 7412178610) LYMPH x10^3 (test code 1.10 10*3/uL 1.32-3.29 L = 731-0) MONO x10^3 (test code 0.47 10*3/uL 0.33-0.92 = 742-7) EOS x10^3 (test code = 0.03-0.39 L 711-2) BASO x10^3 (test code 0.01-0.07 = 704-7) Lab Interpretation Abnormal (test code = 88368-6) [facility] METABOLIC PANEL (NA, K, CL, CO2, GLUCOSE, BUN, CREATININE, CA)2022-04-22 21:43:42 Test Item Value Reference Range Interpretation Comments NA (test code = 142 mmol/L 135-145 2196807664) K (test code = 3.5 mmol/L 3.5-5.0 1089611115) CL (test code = 106 mmol/L 98-108 1590590008) CO2 TOTAL (test code = 26 mmol/L 23-31 6294281059) AGAP (test code = 2-16 1384221609) BUN (test code = 29 mg/dL 7-23 H 5866831028) GLUCOSE (test code = 84 mg/dL 70-110 7217106116) CREATININE (test code = 1.16 mg/dL 0.50-1.04 H 0115428424) CALCIUM (test code = 8.2 mg/dL 8.6-10.6 L 3616860797) eGFR (test code = mL/min/1.73m2 9132468926) KYLE (test code = KYLE) Association of [...] tests). Lab Interpretation Abnormal (test code = 20500-9) [facility] [id number] 21:33:01 Test Item Value Reference Range Interpretation Comments WBC (test code = See_Comment [Automated 9490-2) message] The sy stem which generated this [...] (test code = 50.7 fL 39.0-49.9 H 44779-2) RDW-CV (test code = 14.6 % 12.0-15.5 788-0) PLT (test code = See_Comment L [Automated 777-3) message] The sy stem which generated this result transmitted reference range : 166 - 358 10*3/ ?L. The reference r abbey was not used to interpret this result as normal/abnormal . MPV (test code = 8.8 fL 9.5-12.9 L 00521-7) NRBC/100 WBC (test See_Comment [Automat ed code = 1295325271) message] The system which generated this result transmitted reference range : 0.0 - 10.0 /100 WBCs. The refer ence range was not u sed to interpret th is result as normal/abnormal . NRBC x10^3 (test code See_Comment [Auto mated = 9672576591) message] The s ystem which generated this result transmitted reference range : 10*3/?L. The reference range was not used to interpret this result as normal/abnormal . GRAN MAT (NEUT) % 70.9 % (test code = 770-8) IMM GRAN % (test code 0.50 % = 3605023333) LYMPH % (test code = 17.4 % 736-9) MONO % (test code = 9.0 % 5905-5) EOS % (test code = 1.7 % 713-8) BASO % (test code = 0.5 % 706-2) GRAN MAT x10^3(ANC) 4.60 10*3/uL 1.88-7.09 (test code = 5545314271) IMM GRAN x10^3 (test 0.03 10*3/uL 0.00-0.06 code = 2487698640) LYMPH x10^3 (test code 1.13 10*3/uL 1.32-3.29 L = 731-0) MONO x10^3 (test code 0.58 10*3/uL 0.33-0.92 = 742-7) EOS x10^3 (test code = 0.11 10*3/uL 0.03-0.39 711-2) BASO x10^3 (test code 0.03 10*3/uL 0.01-0.07 = 704-7) Lab Interpretation Abnormal (test code = 29772-7) [facility] CULTURE [id number] 06:01:07 Test Item Value Reference Range Interpretation Comments Blood Culture-Aerobic No organisms No growth Previo us (test code = 13479-8) isolated prelim inary verified result was Culture [...] Culture-Anaerobic isolated preliminar y (test code = 18791-9) verifi ed result was Culture In Progress [...] CDT Lab Interpretation Normal (test code = 28129-1) [facility] CULTURE [id number] 06:01:07 Test Item Value Reference Range Interpretation Comments Blood Culture-Aerobic No organisms No growth Previo us (test code = 19967-8) isolated prelim inary verified result was Culture [...] Culture-Anaerobic isolated preliminar y (test code = 51628-2) verifi ed result was Culture In Progress [...] CDT Lab Interpretation Normal (test code = 52311-5) [facility] [id number] 06:01:07 Test Item Value Reference Range Interpretation Comments Blood Culture-Aerobic No organisms No growth Previo us (test code = 51869-8) isolated prelim inary verified result was Culture [...] Culture-Anaerobic isolated preliminar y (test code = 92160-0) verifi ed result was Culture In Progress [...] CDT Lab Interpretation Normal (test code = 54311-2) [facility] [id number] 10:49:10 Test Item Value Reference Range Interpretation Comments NT-proBNP (test code 2660 pg/mL See_Comment H [Autom ated = 7747133243) message] The system which generated this result transmitted reference range : <=125. The reference range was not used to interpret this result as normal/abnormal . YKLE (test code = KYLE) Biotin has been reported to cause a negative bias, interpret results relative to patient's use of biotin. Lab Interpretation Abnormal (test code = 10266-2) [facility] [id number] 10:49:10 Test Item Value Reference Range Interpretation Comments NT-proBNP (test code 2660 pg/mL See_Comment H [Autom ated = 2466770084) message] The system which generated this result transmitted reference range : <=125. The reference range was not used to interpret this result as normal/abnormal . KYLE (test code = KYLE) Biotin has been reported to cause a negative bias, interpret results relative to patient's use of biotin. Lab Interpretation Abnormal (test code = 78554-6) [facility] (NA, K, CL, CO2, GLUCOSE, BUN, CREATININE, CA)2022-02-15 10:44:07 Test Item Value Reference Range Interpretation Comments NA (test code = 134 mmol/L 135-145 L 6124504263) K (test code = 3.2 mmol/L 3.5-5 L 7769111245) CL (test code = 98 mmol/L 98-108 5739976312) CO2 TOTAL (test code = 27 mmol/L 23-31 3374559510) AGAP (test code = 2-16 2764875456) BUN (test code = 19 mg/dL 7-23 9621277531) GLUCOSE (test code = 102 mg/dL 70-110 4349467204) CREATININE (test code = 0.95 mg/dL 0.5-1.04 8713910518) CALCIUM (test code = 8.5 mg/dL 8.6-10.6 L 3822024202) eGFR (test code = mL/min/1.73m2 9487861910) KYLE (test code = KYLE) Association of [...] tests). Lab Interpretation Abnormal (test code = 59488-3) [facility] Test Item Value Reference Range Interpretation Comments MAGNESIUM (test code = 0095727031) 1.8 mg/dL 1.7-2.4 Lab Interpretation (test code = Normal 59876-4) [facility]2022-[facility]-26 10:44:07 Test Item Value Reference Range Interpretation Comments MAGNESIUM (test code = 2804204837) 1.8 mg/dL 1.7-2.4 Lab Interpretation (test code = Normal 09571-9) [facility] (NA, K, CL, CO2, GLUCOSE, BUN, CREATININE, CA)2022-02-15 10:44:07 Test Item Value Reference Range Interpretation Comments NA (test code = 134 mmol/L 135-145 L 3867804586) K (test code = 3.2 mmol/L 3.5-5.0 L 4753152169) CL (test code = 98 mmol/L 98-108 4297885397) CO2 TOTAL (test code = 27 mmol/L 23-31 2271771477) AGAP (test code = 2-16 9650271101) BUN (test code = 19 mg/dL 7-23 4168679559) GLUCOSE (test code = 102 mg/dL 70-110 4110925049) CREATININE (test code = 0.95 mg/dL 0.50-1.04 2998405378) CALCIUM (test code = 8.5 mg/dL 8.6-10.6 L 1338208332) eGFR (test code = mL/min/1.73m2 2518976037) KYLE (test code = KYLE) Association of [...] tests). Lab Interpretation Abnormal (test code = 74343-7) [facility] [id number] 10:12:06 Test Item Value Reference Range Interpretation Comments WBC (test code = See_Comment L [Automated 8390-2) message] The sy stem which generated this result transmitted reference range : 4.30 - 11.10 10*3/?L. The reference range was not used to interpret this result as normal/abnormal . RBC (test code = See_Comment L [Automated 969-8) message] The sy stem which generated this [...] RDW-SD (test code = 47.8 fL 39-49.9 82602-1) RDW-CV (test code = 15.2 % 12-15.5 788-0) PLT (test code = See_Comment L [Automated 777-3) message] The sy stem which generated this result transmitted reference range : 166 - 358 10*3/ ?L. The reference r abbey was not used to interpret this result as normal/abnormal . MPV (test code = 8.9 fL 9.5-12.9 L 82239-1) NRBC/100 WBC (test See_Comment [Automat ed code = 7157158744) message] The system which generated this result transmitted reference range : 0.0 - 10.0 /100 WBCs. The refer ence range was not u sed to interpret th is result as normal/abnormal . NRBC x10^3 (test code See_Comment [Auto mated = 6982991480) message] The s ystem which generated this result transmitted reference range : 10*3/?L. The reference range was not used to interpret this result as normal/abnormal . GRAN MAT (NEUT) % 65.9 % (test code = 770-8) IMM GRAN % (test code 0.30 % = 4412332212) LYMPH % (test code = 21.0 % 736-9) MONO % (test code = 10.1 % 5905-5) EOS % (test code = 2.4 % 713-8) BASO % (test code = 0.3 % 706-2) GRAN MAT x10^3(ANC) 2.49 10*3/uL 1.88-7.09 (test code = 3351786041) IMM GRAN x10^3 (test 0-0.06 code = 5035297085) LYMPH x10^3 (test code 0.79 10*3/uL 1.32-3.29 L = 731-0) MONO x10^3 (test code 0.38 10*3/uL 0.33-0.92 = 742-7) EOS x10^3 (test code = 0.09 10*3/uL 0.03-0.39 711-2) BASO x10^3 (test code 0.01-0.07 = 704-7) Lab Interpretation Abnormal (test code = 65449-4) [facility] [id number] 10:12:06 Test Item Value Reference Range Interpretation [...] RDW-SD (test code = 47.8 fL 39.0-49.9 71918-6) RDW-CV (test code = 15.2 % 12.0-15.5 788-0) PLT (test code = See_Comment L [Automated 777-3) message] The sy stem which generated this result transmitted reference range : 166 - 358 10*3/ ?L. The reference r abbey was not used to interpret this result as normal/abnormal . MPV (test code = 8.9 fL 9.5-12.9 L 59879-1) NRBC/100 WBC (test See_Comment [Automat ed code = 4796984430) message] The system which generated this result transmitted reference range : 0.0 - 10.0 /100 WBCs. The refer ence range was not u sed to interpret th is result as normal/abnormal . NRBC x10^3 (test code See_Comment [Auto mated = 9449608392) message] The s ystem which generated this result transmitted reference range : 10*3/?L. The reference range was not used to interpret this result as normal/abnormal . GRAN MAT (NEUT) % 65.9 % (test code = 770-8) IMM GRAN % (test code 0.30 % = 2474733216) LYMPH % (test code = 21.0 % 736-9) MONO % (test code = 10.1 % 5905-5) EOS % (test code = 2.4 % 713-8) BASO % (test code = 0.3 % 706-2) GRAN MAT x10^3(ANC) 2.49 10*3/uL 1.88-7.09 (test code = 5320651496) IMM GRAN x10^3 (test 0.00-0.06 code = 6620446195) LYMPH x10^3 (test code 0.79 10*3/uL 1.32-3.29 L = 731-0) MONO x10^3 (test code 0.38 10*3/uL 0.33-0.92 = 742-7) EOS x10^3 (test code = 0.09 10*3/uL 0.03-0.39 711-2) BASO x10^3 (test code 0.01-0.07 = 704-7) Lab Interpretation Abnormal (test code = 27415-1) [facility] [id number] 11:18:28 Test Item Value Reference Range Interpretation [...] RDW-SD (test code = 49.5 fL 39-49.9 06063-0) RDW-CV (test code = 15.5 % 12-15.5 788-0) PLT (test code = See_Comment L [Automated 777-3) message] The sy stem which generated this result transmitted reference range : 166 - 358 10*3/ ?L. The reference r abbey was not used to interpret this result as normal/abnormal . MPV (test code = 11.4 fL 9.5-12.9 19454-4) IPF % (test code = 8.7 % 1.3-7.7 H Platelet count 8898384011) measured by fluorescence method. NRBC/100 WBC (test See_Comment [Automat ed code = 5097212271) message] The system which generated this result transmitted reference range : 0.0 - 10.0 /100 WBCs. The refer ence range was not u sed to interpret th is result as normal/abnormal . NRBC x10^3 (test code See_Comment [Auto mated = 0260624749) message] The s ystem which generated this result transmitted reference range : 10*3/?L. The reference range was not used to interpret this result as normal/abnormal . GRAN MAT (NEUT) % 62.0 % (test code = 770-8) IMM GRAN % (test code 0.80 % = 5749694737) LYMPH % (test code = 22.2 % 736-9) MONO % (test code = 9.6 % 5905-5) EOS % (test code = 5.1 % 713-8) BASO % (test code = 0.3 % 706-2) GRAN MAT x10^3(ANC) 2.21 10*3/uL 1.88-7.09 (test code = 1322164163) IMM GRAN x10^3 (test 0.03 10*3/uL 0-0.06 code = 0209453846) LYMPH x10^3 (test code 0.79 10*3/uL 1.32-3.29 L = 731-0) MONO x10^3 (test code 0.34 10*3/uL 0.33-0.92 = 742-7) EOS x10^3 (test code = 0.18 10*3/uL 0.03-0.39 711-2) BASO x10^3 (test code 0.01-0.07 = 704-7) POLYCHROMASIA (test 2+ See_Comment [Automa arpit code = 26897-2) message] The system which generated this result [...] . Lab Interpretation Abnormal (test code = 80867-0) [facility] METABOLIC PANEL (NA, K, CL, CO2, GLUCOSE, BUN, CREATININE, CA)2022-02-13 10:39:07 Test Item Value Reference Range Interpretation Comments NA (test code = 136 mmol/L 135-145 4169733030) K (test code = 4.1 mmol/L 3.5-5 4124997915) CL (test code = 102 mmol/L 98-108 1298449920) CO2 TOTAL (test code = 27 mmol/L 23-31 5560351166) AGAP (test code = 2-16 6565972377) BUN (test code = 22 mg/dL 7-23 3923014630) GLUCOSE (test code = 94 mg/dL 70-110 4733696417) CREATININE (test code = 0.94 mg/dL 0.5-1.04 2760443220) CALCIUM (test code = 8.1 mg/dL 8.6-10.6 L 9885545864) eGFR (test code = mL/min/1.73m2 3130324776) KYLE (test code = KYLE) Association of [...] tests). Lab Interpretation Abnormal (test code = 44446-9) [facility] 01:50:10 Test Item Value Reference Range Interpretation Comments Height (test code = in 5158649146) Weight (test code = lbs 2052093515) Systolic BP (test code mmHg = 9750446677) Diastolic BP (test code mmHg = 7556549754) Heart Rate (test code = bpm 4243798145) BSA (test code = 1.85 m2 5127189823) IVS (test code = 1.22 cm 2430211447) Interventricular Septum 1.22 cm Diastolic Thickness by 2D (test code = 1919659) LVIDD (test code = 5.00 cm 8751867266) Left Ventricular End 117.9 mL Diastolic Volume by Teichholz Method (test code = 3446955) LVPWD (test code = 1.22 cm 9163504851) PW (test code = 1.22 cm 0.6-1.5 0320419284) EF(Teich) (test code = 74.60 % 5704879929) LVIDS (test code = 2.80 cm 8382770745) Left Ventricular End 29.9 mL Systolic Volume by Teichholz Method (test code = 5010386) FS (test code = 44 % 9317351975) EF - 2D (test code = 74.60 % 77837607) LVOT diameter (test 2.16 cm code = 6236600386) LVOT area (test code = 3.70 cm2 9262914031) Ao root diam (test code 3.40 cm = 0521279984) Aortic root (test code 3.4 cm = 5114740244) Ao root annulus (test 3.4 cm code = 9762017611) LA size (test code = 3.4 cm 7219693013) TR Peak Spencer (test code 330.0 cm/s = 3177682224) Triscuspid Valve mmHg Regurgitation Peak Gradient (test code = 8771390799) PV REGURGITATION PEAK mmHg GRADIENT (test code = 8071686402) PI dec slope (test code 137.20 cm/s2 = 8708306823) LAV(MOD-sp4) (test code 102.90 mL = 2707625358) MV Peak E Spencer (test 84.1 cm/s code = 9422947900) MV Peak A Spencer (test 40.1 cm/s code = 8128947483) E/A ratio (test code = ratio 0440702142) MV valve area p 1/2 3.70 cm2 method (test code = 2601155088) MV dec slope (test code 413.00 cm/s2 = 0195069405) MV P1/2t max spencer (test 83.70 cm/s code = 0198056616) MV Prop V (test code = 41.80 cm/s 8551186230) Tapse (test code = 1.83 cm 2616971076) LVOT stroke volume 96.90 cm3 (test code = 6115436896) LVOT peak spencer (test 125.5 cm/s code = 5562304836) LVOT mn grad (test code mmHg = 9026811749) AV LVOT peak gradient mmHg (test code = 6621903150) LVOT peak VTI (test 26.4 cm code = 1323475787) LV V1 mean (test code = 78.10 cm/s 2897145578) Aortic valve mean 103.7 cm/s velocity (test code = 1622746389) Ao peak spencer (test code 165.6 cm/s = 8955860464) Ao VTI (test code = 37.2 cm 8454346625) AV area by cont VTI 2.6 cm2 (test code = 3577761827) AV area peak spencer (test 2.8 cm2 code = 2662090501) Ao max PG (test code = 11.00 mm[Hg] 2041050228) AV peak gradient (test mmHg code = 8015906630) AV valve area (test 2.60 cm2 code = 1151836290) AV mean gradient (test mmHg code = 1867226709) LA Volume Index (BP) 55.2 mL/m2 (test code = 7042630171) LA volume (BP) (test 102.1 mL code = 2884960508) LAV(MOD-sp2) (test code 86.10 mL = 5508754378) A2C EF (test code = 61.20 % 0126767588) EF(sp2-el) (test code = 61.60 % 4107145187) SV(MOD-sp2) (test code 47.10 mL = 7518973262) LV Diastolic Volume 70.7 mL (BP) (test code = 7734522328) A4C EF (test code = 53.00 % 1655339958) EF(MOD-bp) (test code = 56.70 % 0830350558) EF(sp4-el) (test code = 53.90 % 5040336631) LV Systolic Volume (BP) 30.6 mL (test code = 9182049612) SV(MOD-bp) (test code = 40.10 mL 2133517594) SV(MOD-sp4) (test code 32.40 mL = 5499139245) SV(sp4-el) (test code = 33.10 mL 7992941304) EF (test code = 6011067976) Left Ventricular Stroke 40.1 mL Volume by 2-D Biplane-MOD (test code = 2926231) LV Diastolic Volume 38.2 mL/m2 Index (BP) (test code = 2888445740) LV Systolic Volume 16.5 mL/m2 Index (BP) (test code = 1489311075) Radiology Study observation (narrative) (test code = 04321-1) KYLE (test code = KYLE) ?Left?Ventricle: Left [...] 1.00The left ventricular wall motion is normal. [facility] [id number] 05:45:01 Test Item Value Reference Interpretation Comments Range TROPONIN I (test See_Comment [Automated code = 1916107763) message] The system which generated this result [...] biotin. Lab Interpretation Normal (test code = 50861-9) [facility] [id number] 05:41:40 Test Item Value Reference Range Interpretation Comments NT-proBNP (test code 4250 pg/mL See_Comment H [Autom ated = 8103552282) message] The system which generated this result transmitted reference range : <=125. The reference range was not used to interpret this result as normal/abnormal . KYLE (test code = KYLE) Biotin has been reported to cause a negative bias, interpret results relative to patient's use of biotin. Lab Interpretation Abnormal (test code = 19414-0) [facility] [id number] 05:35:21 Test Item Value Reference Range Interpretation Comments APTT Patient (test See_Comment [Automat ed code = 3173-2) message] The system which generated this result transmitted reference range : 23 - 38 Seconds . The reference range was not used to interpr et this result as normal/abnormal . KYLE (test code = KYLE) The [facility] patient population mean normal value for aPTT is 30 seconds. Lab Interpretation Normal (test code = 53499-6) [facility] [id number] 05:35:21 Test Item Value Reference Range Interpretation Comments APTT Patient (test See_Comment [Automat ed code = 3173-2) message] The system which generated this result transmitted reference range : 23 - 38 Seconds . The reference range was not used to interpr et this result as normal/abnormal . KYLE (test code = KYLE) The [facility] patient population mean normal value for aPTT is 30 seconds. Lab Interpretation Normal (test code = 60847-8) [facility] / [id number] 05:33:21 Test Item Value Reference Range Interpretation [...] tions. Lab Interpretation (test Normal code = 69506-2) [facility]OL[facility] (33063)2022-02-11 05:33:21 Test Item Value Reference Range Interpretation Comments NA (test code = 137 mmol/L 135-145 [id number]) K (test code = 4.3 mmol/L 3.5-5 1357940998) CL (test code = 103 mmol/L 98-108 7935249443) CO2 TOTAL (test code = 25 mmol/L 23-31 9523958987) AGAP (test code = 2-16 5491061102) BUN (test code = 19 mg/dL 7-23 8141994195) GLUCOSE (test code = 120 mg/dL 70-110 H 8312733647) CREATININE (test code = 1.15 mg/dL 0.5-1.04 H 7893157729) TOTAL BILI (test code = 0.9 mg/dL 0.1-1.1 5939212704) CALCIUM (test code = 8.9 mg/dL 8.6-10.6 0247722898) T PROTEIN (test code = 6.6 g/dL 6.3-8.2 2046491566) ALBUMIN (test code = 4.0 g/dL 3.5-5 2201589817) ALK PHOS (test code = 73 U/L 34-122 6082241130) ALTv (test code = 18 U/L 5-35 1742-6) AST(SGOT) (test code = 31 U/L 13-40 0504172708) eGFR (test code = mL/min/1.73m2 0587323949) KYLE (test code = KYLE) Association of [...] tests). Lab Interpretation Abnormal (test code = 17345-8) [facility]. METABOLIC PANEL (93430)2022-02-11 05:33:21 Test Item Value Reference Range Interpretation Comments NA (test code = 137 mmol/L 135-145 6633795893) K (test code = 4.3 mmol/L 3.5-5.0 1712827580) CL (test code = 103 mmol/L 98-108 4593524621) CO2 TOTAL (test code = 25 mmol/L 23-31 6393909495) AGAP (test code = 2-16 6181915888) BUN (test code = 19 mg/dL 7-23 6585597510) GLUCOSE (test code = 120 mg/dL 70-110 H 0555362372) CREATININE (test code = 1.15 mg/dL 0.50-1.04 H 8138420649) TOTAL BILI (test code = 0.9 mg/dL 0.1-1.1 2539531164) CALCIUM (test code = 8.9 mg/dL 8.6-10.6 9243861299) T PROTEIN (test code = 6.6 g/dL 6.3-8.2 6550672779) ALBUMIN (test code = 4.0 g/dL 3.5-5.0 3900717053) ALK PHOS (test code = 73 U/L 34-122 1352352328) ALTv (test code = 18 U/L 5-35 1742-6) AST(SGOT) (test code = 31 U/L 13-40 4267374669) eGFR (test code = mL/min/1.73m2 6543786041) KYLE (test code = KYLE) Association of [...] tests). Lab Interpretation Abnormal (test code = 45333-7) [facility] / [id number] 05:33:21 Test Item Value Reference Range Interpretation Comments PROTIME PATIENT (test See_Comment [Auto mated message] code = 5964-2) The system Praedicat ich generated this result transmitted ref erence range: 12.0 - 1 4.7 Seconds. The re ference range was not u sed to interpret this result as normal/abnor mal. INR (test code = 6301-6) Nor mal INR <1.1; Warfarin Therap eutic range 2.0 to 3. 0 or 2.5 to 3.5, dep ending upon the indica tions. Lab Interpretation (test Normal code = 22426-9) [facility] WITH [id number] 05:14:37 Test Item Value Reference Range Interpretation Comments WBC (test code = See_Comment [Automated 8190-2) message] The sy stem which generated this [...] RDW-SD (test code = 47.9 fL 39-49.9 42502-4) RDW-CV (test code = 14.9 % 12-15.5 788-0) PLT (test code = See_Comment L [Automated 777-3) message] The sy stem which generated this result transmitted reference range : 166 - 358 10*3/ ?L. The reference r abbey was not used to interpret this result as normal/abnormal . MPV (test code = 9.1 fL 9.5-12.9 L 60282-1) NRBC/100 WBC (test See_Comment [Automat ed code = 2254419831) message] The system which generated this result transmitted reference range : 0.0 - 10.0 /100 WBCs. The refer ence range was not u sed to interpret th is result as normal/abnormal . NRBC x10^3 (test code See_Comment [Auto mated = 4159547116) message] The s ystem which generated this result transmitted reference range : 10*3/?L. The reference range was not used to interpret this result as normal/abnormal . GRAN MAT (NEUT) % 78.5 % (test code = 770-8) IMM GRAN % (test code 0.20 % = 3864860186) LYMPH % (test code = 11.6 % 736-9) MONO % (test code = 8.4 % 5905-5) EOS % (test code = 1.1 % 713-8) BASO % (test code = 0.2 % 706-2) GRAN MAT x10^3(ANC) 3.45 10*3/uL 1.88-7.09 (test code = 3359310149) IMM GRAN x10^3 (test 0-0.06 code = 7651875094) LYMPH x10^3 (test code 0.51 10*3/uL 1.32-3.29 L = 731-0) MONO x10^3 (test code 0.37 10*3/uL 0.33-0.92 = 742-7) EOS x10^3 (test code = 0.05 10*3/uL 0.03-0.39 711-2) BASO x10^3 (test code 0.01-0.07 = 704-7) Lab Interpretation Abnormal (test code = 53304-9) [facility] Coronavirus 2019 Bzeempe0698-08-33 18:08:00 Test Item Value Reference Range Interpretation [...] det ection of nucleic acids f rom belZSNT-JyF-8 v irus and diagnosis of SA RS-CoV-2 virusinfection. It is an Emergency Use Authorization ( EUA) testauthorized by the U.S. FDA. BASIC METABOLIC JIFFO2786-08-01 09:37:00 Test Item Value Reference Range Interpretation [...] = 9.0 mg/dL 8.0-10.5 N CA) PROTHROMBIN TIBF0542-17-24 09:32:00 Test Item Value Reference Range Interpretation [...] (to prevent recurrent infar ct). 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 : 1955 Age/S: 66/F [address] [place] [address] Unit #: [id number] Loc: ADDIS Momin [place] [address] Phys: Bahman ChopraP Acct: [id number] Dis Date: Status: ADM IN PHONE #: [phone] Exam Date: 06/17/2021 1320 FAX #: [phone] Reason: WATCHMAN EXAMS: CPT CODE: [id number] XR CHEST 1 V 52709 PROCEDURE INFORMATION: Exam: XR Chest Exam date [...] Chopra Technologist: RT Taylor(R) Trnscrd Date/Time/By: 06/17/2021 (2234) : By: Susanna Orig Print D/T: S: 06/17/2021 (3233) PAGE 1 Signed ReportCOVID 19 Asymptomatic IH NZ8182-58-60 12:29:00 Test Item Value Reference Range Interpretation [...] high or waivedcomplexit y tests. BASIC METABOLIC QLAVN8172-12-26 11:37:00 Test Item Value Reference Range Interpretation [...] code = 9.0 mg/dL 8.0-10.5 N CA) DNNLMWJTGX4527-51-81 11:37:00 Test Item Value Reference Range Interpretation Comments PREALBUMIN (test code = PREALB) 24.3 mg/dL 16.0-40.0 N PROTHROMBIN QYLS4047-46-13 11:03:00 Test Item Value Reference Range Interpretation [...] (to prevent recurrent infar ct). CBC W/AUTO KIWS1685-72-13 10:59:00 Test Item Value Reference Range Interpretation [...] 0.00 x10 3/uL 0.0-0.1 N NRBC#) - [facility] 2 U6714-35-00 00:00:00 [facility] : 1955 Sex: F FAX: Carmenza Olivera DO [phone] [place]: St: PRE FAX: Mike Scales MD [phone] Name: MARJAN FLEMING [facility] : 1955 Age/S: 66/F [address] [place] [address] Unit #: [id number] Loc: [place] [address] Phys: Mike Lund MD Acct: [id number] Dis Date: Status: PRE SDC PHONE #: [phone] Exam Date: 06/16/2021 1120 FAX #: [phone] Reason: PREOP EXAMS: CPT CODE: [id number] XR CHEST 2 V 28209 PROCEDURE INFORMATION: Exam: XR Chest Exam date [...] By: [email or web address] Orig Print D/T: S: 06/16/2021 (4875) PAGE 1 Signed ReportGastrointestinal pvgsm6504-98-55 04:35:05 Test Item Value Reference Interpretation Comments [...] Rotavirus PCR (test Not Detected code = 4451566) Salmonella PCR (test Not Detected code = [...] (test code = 7124) [facility] pofqlub8062-97-86 19:30:47 Test Item Value Reference Range Interpretation Comments Case number (test [id number] code = 4540609) Surgical pathology See link below for PDF report (test code = Lab Report 2255) Result status (test This is Supplemental code = 7554319) Report for [id number] [facility]2021-04-09 16:31:00 Test Item Value Reference Range Interpretation Comments POC Activated Clotting Time (test code 153 s = POC Activated Clotting Time) [facility] SouthXrngqqcNPISDDVNVM3127-97-97 16:31:00 Test Item Value Reference Range Interpretation Comments POC Activated Clotting Time (test code 153 s = POC Activated Clotting Time) [facility] SouthIvveahgLTRYXMMBFD8460-68-55 16:31:00 Test Item Value Reference Range Interpretation Comments POC Activated Clotting Time (test code 153 s = POC Activated Clotting Time) [facility] SouthAvupdmsFWJBVSTGWU1119-23-53 16:31:00 Test Item Value Reference Range Interpretation Comments POC Activated Clotting Time (test code 153 s = POC Activated Clotting Time) [facility] SouthLnpbwutMIHGERTQMU9644-16-98 16:31:00 Test Item Value Reference Range Interpretation Comments POC Activated Clotting Time (test code 153 s = POC Activated Clotting Time) [facility] SouthBzqhevwYVRQCNHERI6654-35-63 16:31:00 Test Item Value Reference Range Interpretation Comments POC Activated Clotting Time (test code 153 s = POC Activated Clotting Time) [facility] SouthTfpcwqoRWDAROGDFN4326-93-67 16:31:00 Test Item Value Reference Range Interpretation Comments POC Activated Clotting Time (test code 153 s = POC Activated Clotting Time) [facility] SouthQffxtppLONEODKRYU9736-58-39 14:37:00 Test Item Value Reference Range Interpretation Comments POC Activated Clotting Time (test code 454 s = POC Activated Clotting Time) [facility] SouthPtekzpoOGUMEIHVZQ6318-59-60 14:37:00 Test Item Value Reference Range Interpretation Comments POC Activated Clotting Time (test code 454 s = POC Activated Clotting Time) [facility] SouthGofeoygTVGTNZFEIO4473-39-15 14:37:00 Test Item Value Reference Range Interpretation Comments POC Activated Clotting Time (test code 454 s = POC Activated Clotting Time) [facility] SouthOonkbxyZBONEQABOS6962-15-91 14:37:00 Test Item Value Reference Range Interpretation Comments POC Activated Clotting Time (test code 454 s = POC Activated Clotting Time) [facility] SouthEwgbeajFOWWTFAVBS8683-15-13 14:37:00 Test Item Value Reference Range Interpretation Comments POC Activated Clotting Time (test code 454 s = POC Activated Clotting Time) [facility] SouthTawwfjuDPCBPKYDDX1698-29-95 14:37:00 Test Item Value Reference Range Interpretation Comments POC Activated Clotting Time (test code 454 s = POC Activated Clotting Time) [facility] SouthWliutmeTWXQNMOGGL1090-84-84 14:37:00 Test Item Value Reference Range Interpretation Comments POC Activated Clotting Time (test code 454 s = POC Activated Clotting Time) [facility] SouthBnmewrjSQWQSGJEPC8150-69-87 14:13:00 Test Item Value Reference Range Interpretation Comments POC Activated Clotting Time (test code 354 s = POC Activated Clotting Time) [facility] SouthYmtfrhcLFTGMSPCUB8589-45-97 14:13:00 Test Item Value Reference Range Interpretation Comments POC Activated Clotting Time (test code 354 s = POC Activated Clotting Time) [facility] SouthUubujgsSJBGBUAMXZ2724-67-38 14:13:00 Test Item Value Reference Range Interpretation Comments POC Activated Clotting Time (test code 354 s = POC Activated Clotting Time) [facility] SouthSkbunqiTZNJKLTXIZ4086-29-56 14:13:00 Test Item Value Reference Range Interpretation Comments POC Activated Clotting Time (test code 354 s = POC Activated Clotting Time) [facility] SouthCrtotvqMQWQKPKHBY9756-55-04 14:13:00 Test Item Value Reference Range Interpretation Comments POC Activated Clotting Time (test code 354 s = POC Activated Clotting Time) [facility] HospitalSaonjiqWZCHVGUKTJ5012-02-33 14:13:00 Test Item Value Reference Range Interpretation Comments POC Activated Clotting Time (test code 354 s = POC Activated Clotting Time) [facility]RyakqstUGXZRPKEJM0904-99-36 14:13:00 Test Item Value Reference Range Interpretation Comments POC Activated Clotting Time (test code 354 s = POC Activated Clotting Time) [facility] TFVQRPS4081-25-27 10:37:00Negative (08/29/20 5:37 AM) [facility] HermannCHEM HUAEC0112-23-52 10:37:23724Dhrbucnh HermannCHEM PANEL 2020-08-29 10:37:0028[facility] HermannCHEM RVYUS1238-08-30 10:37:001.01[facility] HermannCHEM TJTGR4783-70-39 10:37:77267Edewbtbr HermannCHEM XMBEJ8046-22-95 10:37:003.8[facility] HermannCHEM QBFIX7880-26-65 10:37:03567Kllqevxq HermannCHEM IOKZV6291-98-90 10:37:0028[facility] HermannCHEM CECUW3376-60-14 10:37:009.8 [facility] HermannCHEM NYCAY4140-67-43 10:37:0011.8[facility] HermannCHEM PANEL 2020-08-29 10:37:0059[facility] HermannCHEM VBIJR1951-82-26 10:37:002.9[facility] TcizxmrDXUKIZZXQC0213-45-19 10:37:006.8[facility] PznzfcoMFEKDGUBXD6747-29-92 10:37:004.47[facility] PirvzsiJURBYRMPOS6391-59-23 10:37:0010.6[facility] QCHYHNFGMH1492-77-85 10:37:0034.0[facility] DyfoekmHXZROWBPFB6095-71-69 10:37:00 76.1[facility] YqwmegmSSJLPGUIDE2496-00-84 10:37:00 Test Item Value Reference Range Interpretation Comments MCH (test code = MCH) 23.8 pg 27.0-31.0 [facility] VhspovgUJLVYYHKGD7984-32-20 10:37:0031.3[facility] HermannHEMATOLOGY 2020-08-29 10:37:0018.2[facility] DgdppmtLIVCDTAEKI7015-29-10 10:37:44117Yfqedyfv ImqepcrFUTFUTNKSM0940-70-17 10:37:007.5[facility] XrhlvhyFPSITIHTSZ4006-76-05 10:37:00 Test Item Value Reference Range Interpretation Comments PT (test code = PT) 12.8 s 12.0-14.7 [facility] AnvotcmCRPGOGCNVP5314-50-07 10:37:00 Test Item Value Reference Range Interpretation Comments INR (test code = INR) 0.97 1 0.85-1.17 [facility] MtnpibeZZOQQRFGRY5447-98-44 10:37:00 Test Item Value Reference Range Interpretation Comments PTT (test code = PTT) 25.0 s 22.9-35.8 [facility] QlpyajlGBBDVIAOAC5880-21-03 10:37:0070.5[facility] HermannHEMATOLOGY 2020-08-29 10:37:0018.8[facility] TgowgtuJZLQWDGDKV1896-71-66 10:37:009.5[facility] GhdjehyGEFGYUSLVT3554-59-50 10:37:000.9[facility] GecjhthGLGVILAGVY2112-36-41 10:37:000.3[facility] EppfmguGJCXXBEKCN6076-31-86 10:37:004.8[facility] IHGELHZVOB9661-46-24 10:37:001.3[facility] WpeayfqIGIHYKPYTC3444-96-38 10:37:000.6 [facility] AakygebJPLPTVIWUN9712-17-50 10:37:000.1[facility] HermannHEMATOLOGY 2020-08-29 10:37:001+ *ABN*(08/29/20 5:37 AM)[facility] BsyhkxgBOCFERMNEX1124-67-57 10:37:00Not Detected (08/29/20 5:37 AM)[facility] HermannBLOOD BANK RESULTS 2020-08-29 10:37:00Negative (08/29/20 5:37 AM)[facility] HermannCHEM RXZKM7843-41-63 10:37:25388Ymgumxya HermannCHEM FAAHH5704-73-15 10:37:0028[facility] HermannCHEM OAZYX9566-78-10 10:37:001.01[facility] HermannCHEM XFVIL1469-98-28 10:37:92418 [facility] HermannCHEM RKPYG4243-50-17 10:37:003.8[facility] HermannCHEM PANEL 2020-08-29 10:37:69941Ufqerxeq HermannCHEM TTUNJ4034-88-53 10:37:0028[facility] HermannCHEM ORTBQ4351-36-48 10:37:009.8[facility] HermannCHEM EBDBP2381-77-62 10:37:0011.8[facility] HermannCHEM YBHZV7884-61-04 10:37:0059[facility] HermannCHEM YHQUW2771-11-85 10:37:002.9[facility] EawjuajWRMTFUHXMV6954-77-24 10:37:006.8 [facility] JoqjcriUUQNHWFBKY4130-36-19 10:37:004.47[facility] HermannHEMATOLOGY 2020-08-29 10:37:0010.6[facility] RrbrmjfVQAPEBWHBY3161-59-52 10:37:0034.0[facility] IgqgellFBOTPXOCMI7072-54-78 10:37:0076.1[facility] ZhruczeHXQWJBFNDO9681-87-99 10:37:00 Test Item Value Reference Range Interpretation Comments MCH (test code = MCH) 23.8 pg 27.0-31.0 [facility] AkxkqrwOAJOSEFZGC2697-53-50 10:37:0031.3[facility] HermannHEMATOLOGY 2020-08-29 10:37:0018.2[facility] SrzvargPJZUKZTCTN9758-12-04 10:37:63066Jvnegstz UvmsmhgBAMXSCVPDP0465-93-59 10:37:007.5[facility] PcrnptvUWVTPYITEF7429-33-74 10:37:00 Test Item Value Reference Range Interpretation Comments PT (test code = PT) 12.8 s 12.0-14.7 [facility] GiymvolEMUMZZYQEW2289-24-57 10:37:00 Test Item Value Reference Range Interpretation Comments INR (test code = INR) 0.97 1 0.85-1.17 [facility] BfhbpflHWJIULGJHR5100-39-55 10:37:00 Test Item Value Reference Range Interpretation Comments PTT (test code = PTT) 25.0 s 22.9-35.8 [facility] FwbyawiMRFOLBEEMR6460-70-38 10:37:0070.5[facility] HermannHEMATOLOGY 2020-08-29 10:37:0018.8[facility] CmknszoTNNWHNZJEP9093-92-01 10:37:009.5[facility] CtchdmcKHZRDFEADI2838-10-14 10:37:000.9[facility] LxibwfvHHOKEOGSOL1477-46-75 10:37:000.3[facility] PkbsykkDJHJWGQCRS4941-52-81 10:37:004.8[facility] [place] DKQWAUYYED1679-22-24 10:37:001.3[facility] HvcatnxORLDSENEIK8830-75-54 10:37:000.6 [facility] VfabhfiQAIRHZBBWQ3191-36-94 10:37:000.1[facility] HermannHEMATOLOGY 2020-08-29 10:37:001+ *ABN*(08/29/20 5:37 AM)[facility] BktwdhgDJKZOHDPYO5447-40-61 10:37:00Not Detected (08/29/20 5:37 AM)[facility] HermannBLOOD BANK RESULTS 2020-08-29 10:37:00Negative (08/29/20 5:37 AM)[facility] HermannCHEM AQIYT7988-00-50 10:37:08134Bqomnioy HermannCHEM CQJSG1517-39-36 10:37:0028[facility] HermannCHEM SJING1368-19-59 10:37:001.01[facility] HermannCHEM GGCRS8048-01-81 10:37:06382 [facility] HermannCHEM QZOWR2740-38-53 10:37:003.8[facility] HermannCHEM PANEL 2020-08-29 10:37:84973Sjpeezbx HermannCHEM GFZON9369-51-10 10:37:0028[facility] HermannCHEM EFPZR3947-13-48 10:37:009.8[facility] HermannCHEM TTRQT8471-34-98 10:37:0011.8[facility] HermannCHEM IQBUX8888-07-25 10:37:0059[facility] HermannCHEM QBDED9492-27-40 10:37:002.9[facility] RsxsridFQGNPRBKIQ8570-84-01 10:37:006.8 [facility] BerzjlxARLQUBFVRQ0278-43-13 10:37:004.47[facility] HermannHEMATOLOGY 2020-08-29 10:37:0010.6[facility] VgsmxkcZLHGCYREQU7747-62-40 10:37:0034.0[facility] GlazoglLOQLSFXZWF9950-59-40 10:37:0076.1[facility] RwlwbamXDLUWOWCWL5949-00-48 10:37:00 Test Item Value Reference Range Interpretation Comments MCH (test code = MCH) 23.8 pg 27.0-31.0 [facility] PphwbzmGBRYRZIFZI0828-71-43 10:37:0031.3[facility] HermannHEMATOLOGY 2020-08-29 10:37:0018.2[facility] GbkyqqyTUZABJILCE2825-84-10 10:37:59543Ywnrleat OkrnfgsCMRLZMNXIK2144-24-66 10:37:007.5[facility] ResfmyhUYRECMZGOR7251-57-99 10:37:00 Test Item Value Reference Range Interpretation Comments PT (test code = PT) 12.8 s 12.0-14.7 [facility] VeapqlxVJIUSTPMXN4109-91-39 10:37:00 Test Item Value Reference Range Interpretation Comments INR (test code = INR) 0.97 1 0.85-1.17 [facility] AbvhbkoLWVZOOYQCG6311-55-30 10:37:00 Test Item Value Reference Range Interpretation Comments PTT (test code = PTT) 25.0 s 22.9-35.8 [facility] LxbrcgzBVYDINRQXQ9047-58-65 10:37:0070.5[facility] HermannHEMATOLOGY 2020-08-29 10:37:0018.8[facility] MvpdioiURMRUUJYYT4593-11-42 10:37:009.5[facility] XwbgynjKJZFTJKCLK7243-73-94 10:37:000.9[facility] UjhglykGIHFKUWFEV0796-60-05 10:37:000.3[facility] ItjrfmoUYXLOMUTRL7334-92-58 10:37:004.8[facility] GSOIDULECH1071-71-21 10:37:001.3[facility] PzhpbepWCJNZBLOFH2974-96-42 10:37:000.6 [facility] GfiezmuFKYHOHOJBQ1097-91-20 10:37:000.1[facility] HermannHEMATOLOGY 2020-08-29 10:37:001+ *ABN*(08/29/20 5:37 AM)[facility] LbctfqhEYPMWTWOXA3691-00-11 10:37:00Not Detected (08/29/20 5:37 AM)[facility] HermannBLOOD BANK RESULTS 2020-08-29 10:37:00Negative (08/29/20 5:37 AM)[facility] HermannCHEM HRLHL5655-78-31 10:37:16040Ssbggnwo HermannCHEM ADYFH9003-69-56 10:37:0028[facility] HermannCHEM BBLCA5836-16-72 10:37:001.01[facility] HermannCHEM JBBDS5598-03-51 10:37:27239 [facility] HermannCHEM FNJYS1213-07-36 10:37:003.8[facility] HermannCHEM PANEL 2020-08-29 10:37:29769Palmsepz HermannCHEM SNCMP7936-81-58 10:37:0028[facility] HermannCHEM FLFGC1602-82-59 10:37:009.8[facility] HermannCHEM AEGEB6495-68-35 10:37:0011.8[facility] HermannCHEM FQBSE1160-57-24 10:37:0059[facility] HermannCHEM JRMNL0284-68-73 10:37:002.9[facility] KmthmurOSOCBIUTBX1551-76-90 10:37:006.8 [facility] TbqcmkrLNERZIZNPW1790-28-08 10:37:004.47[facility] HermannHEMATOLOGY 2020-08-29 10:37:0010.6[facility] WalniobQDKHLZEGIE5841-49-35 10:37:0034.0[facility] JpyzughIEVNUYNEAQ2754-04-04 10:37:0076.1[facility] UhqgyllIDSCSNGZKA0456-68-50 10:37:00 Test Item Value Reference Range Interpretation Comments MCH (test code = MCH) 23.8 pg 27.0-31.0 [facility] RolbtafXZZTSNIEGD3940-06-62 10:37:0031.3[facility] HermannHEMATOLOGY 2020-08-29 10:37:0018.2[facility] AhsgxdcCQNLTPXPQZ4794-21-42 10:37:99747Cdoupqqg IantgdsHXLFWSHNPU4183-51-00 10:37:007.5[facility] VsjassrWSWYIYPWJS8232-47-80 10:37:00 Test Item Value Reference Range Interpretation Comments PT (test code = PT) 12.8 s 12.0-14.7 [facility] MahcmbsUHGGSETTUJ4618-97-56 10:37:00 Test Item Value Reference Range Interpretation Comments INR (test code = INR) 0.97 1 0.85-1.17 [facility] EcanofkQWTEHLCSJH4944-19-39 10:37:00 Test Item Value Reference Range Interpretation Comments PTT (test code = PTT) 25.0 s 22.9-35.8 [facility] ZmjuzvfUMTPWYUWLM9502-03-81 10:37:0070.5[facility] HermannHEMATOLOGY 2020-08-29 10:37:0018.8[facility] QxdimsuEOHOXZCZUY3632-38-40 10:37:009.5[facility] VgijrdyIMVBVBWXHD7973-08-01 10:37:000.9[facility] MfqumnbXISQZSTJFL9947-80-17 10:37:000.3[facility] UvaqypkTLCQVUDEQG3619-39-13 10:37:004.8[facility] ZUKZDEEREL7939-43-76 10:37:001.3[facility] FlfgpbvREINXKQCTF3133-32-89 10:37:000.6 [facility] MqdhcckLMAQTRPDHG5640-71-67 10:37:000.1[facility] HermannHEMATOLOGY 2020-08-29 10:37:001+ *ABN*(08/29/20 5:37 AM)[facility] MyelrvtZEFITZUEMC9617-41-36 10:37:00Not Detected (08/29/20 5:37 AM)[facility] HermannBLOOD BANK RESULTS 2020-08-29 10:37:00Negative (08/29/20 5:37 AM)[facility]annCHEM SAISO7637-61-99 10:37:66684Vpzwzxla HermannCHEM CDLVC3987-15-41 10:37:0028[facility]annCHEM LPDIM7736-08-27 10:37:001.01[facility]annCHEM TZGXM8597-47-23 10:37:35819 [facility]CHE[facility] LCYAF8354-08-61 10:37:003.8[facility]annCHEM PANEL 2020-08-29 10:37:95591Rmadvwug HermannCHEM DQRJE9960-64-63 10:37:0028[facility]annCHEM EUJFK7110-29-78 10:37:009.8[facility]annCHEM JIGAS8026-90-02 10:37:0011.8[facility]annCHEM SAPSB9678-97-35 10:37:0059[facility]annCHEM SKMNO0846-36-20 10:37:002.9[facility] TfniwnkNSRICMJIAQ5402-59-21 10:37:006.8 [facility] UrndbqqCDMAZKMKQA1656-86-38 10:37:004.47[facility]annHEMATOLOGY 2020-08-29 10:37:0010.6[facility] QwdbaqaIUOBOVSIUY6653-62-09 10:37:0034.0[facility] UgmcknaQTOEOQKFZR2556-65-33 10:37:0076.1[facility] LmbtjlkXZAHCLHEIS3755-22-48 10:37:00 Test Item Value Reference Range Interpretation Comments MCH (test code = MCH) 23.8 pg 27.0-31.0 [facility] DcmqcqiKIIGUBWMRQ0286-54-38 10:37:0031.3[facility]annHEMATOLOGY 2020-08-29 10:37:0018.2[facility] KylwhumQXUYNGWRRS2303-97-56 10:37:82818Ahyrmonl VsuirdmMAYZZXINKW4983-52-94 10:37:007.5[facility] TewniwbDIKKBWXXEB1200-03-98 10:37:00 Test Item Value Reference Range Interpretation Comments PT (test code = PT) 12.8 s 12.0-14.7 [facility] FvqxjqcXHYUOPTVMQ4605-86-15 10:37:00 Test Item Value Reference Range Interpretation Comments INR (test code = INR) 0.97 1 0.85-1.17 [facility] YixomrnSRJFXSBLFC0076-99-44 10:37:00 Test Item Value Reference Range Interpretation Comments PTT (test code = PTT) 25.0 s 22.9-35.8 [facility] XzoiavqZREVUZJZMG4797-23-98 10:37:0070.5[facility]annHEMATOLOGY 2020-08-29 10:37:0018.8[facility] XfylsbiTSJQZBKQRZ5806-64-68 10:37:009.5[facility] BawoawbMMPDSBXVFR7290-70-23 10:37:000.9[facility] UnevnsaHKVVEDVCPS5171-50-37 10:37:000.3[facility] BwzxbtpDHERJCBFYG1311-32-65 10:37:004.8[facility] [place] RBGYSFJUPO6261-63-35 10:37:001.3[facility] RgtukvqBAFPPYBBCQ7453-58-18 10:37:000.6 [facility] HzgwhjsWUIBIZXDMB4240-23-96 10:37:000.1[facility]annHEMATOLOGY 2020-08-29 10:37:001+ *ABN*(08/29/20 5:37 AM)[facility] CnfzomiFRLEQGVZYN9205-61-99 10:37:00Not Detected (08/29/20 5:37 AM)[facility] HermannBLOOD BANK RESULTS 2020-08-29 10:37:00Negative (08/29/20 5:37 AM)[facility]annCHEM QTMCN7661-72-98 10:37:94045Naulkyye HermannCHEM JIBBE4557-90-97 10:37:0028[facility]annCHEM TEZBQ8853-33-45 10:37:001.01[facility]annCHEM TGMFC7013-83-34 10:37:97273 [facility]annCHEM QPYCR0242-11-84 10:37:003.8[facility]annCHEM PANEL 2020-08-29 10:37:04786Aygojehp HermannCHEM HBPSG8930-19-65 10:37:0028[facility]annCHEM CGRWX9678-97-63 10:37:009.8[facility]annCHEM XIYWO9724-24-25 10:37:0011.8[facility]annCHEM CBQLQ0200-15-00 10:37:0059[facility]annCHEM TWRKT9851-53-19 10:37:002.9[facility] DtmxgwrVKRYIHLNWW3020-31-14 10:37:006.8 [facility] KsgpfhnSTLZEPAKAH4067-51-33 10:37:004.47[facility] HermannHEMATOLOGY 2020-08-29 10:37:0010.6[facility] FvrrugoBHHRTGBTLU8203-07-99 10:37:0034.0[facility] IzgxuhhVLUNEIEHWL9464-29-53 10:37:0076.1[facility] NgufybaLTZRJHSJMW8533-52-78 10:37:00 Test Item Value Reference Range Interpretation Comments MCH (test code = MCH) 23.8 pg 27.0-31.0 [facility] OaomgzkOWQDEALXTX4653-04-03 10:37:0031.3[facility]annHEMATOLOGY 2020-08-29 10:37:0018.2[facility] LvsessbJQJECOCCIW9707-66-84 10:37:13693Mxupwmrp VnpnebfGZRBLHKHEA0267-48-05 10:37:007.5[facility] GeqoyvbAGDHUZSFJU3969-49-90 10:37:00 Test Item Value Reference Range Interpretation Comments PT (test code = PT) 12.8 s 12.0-14.7 [facility] RgsbemgOTGESVBMSC5224-62-07 10:37:00 Test Item Value Reference Range Interpretation Comments INR (test code = INR) 0.97 1 0.85-1.17 [facility] EkrlhixKAEMALUQHA9654-90-64 10:37:00 Test Item Value Reference Range Interpretation Comments PTT (test code = PTT) 25.0 s 22.9-35.8 [facility] WdqidktTJHKKEYDNG4544-26-68 10:37:0070.5[facility]annHEMATOLOGY 2020-08-29 10:37:0018.8[facility] QelffygJNJIQNXOKC3192-48-75 10:37:009.5[facility] TecnuurXXERPHMTXG0290-28-09 10:37:000.9[facility] FyqldtvFARKMCKBRQ8657-43-92 10:37:000.3[facility] AwlnxcqRPODSBQFBL7765-59-21 10:37:004.8[facility] Marty ZQZEWGXZNQ6183-39-69 10:37:001.3[facility] DbysnypGCQMXORBBK1598-10-55 10:37:000.6 [facility] GmazxlhYAZUZGXMYF8820-02-17 10:37:000.1[facility]annHEMATOLOGY 2020-08-29 10:37:001+ *ABN*(08/29/20 5:37 AM)[facility] EgkjfcwIOHITZBCRF4480-78-90 10:37:00Not Detected (08/29/20 5:37 AM)[facility]annBLOOD BANK RESULTS 2020-08-29 10:37:00Negative (08/29/20 5:37 AM)[facility] HermannCHEM ZKZKB9781-63-17 10:37:86769Zrxkghdh HermannCHEM YTYPE8499-39-81 10:37:0028[facility] HermannCHEM SOAXW7739-44-64 10:37:001.01[facility] HermannCHEM QLJIP7974-34-32 10:37:39309 [facility]annCHEM ZRFJI4595-48-68 10:37:003.8[facility] HermannCHEM PANEL 2020-08-29 10:37:56072Eeezcpcd HermannCHEM UQCAT3662-74-03 10:37:0028[facility] HermannCHEM CPNSW3340-68-06 10:37:009.8[facility] HermannCHEM HVQGP7962-04-15 10:37:0011.8[facility] HermannCHEM KYJSX1679-11-40 10:37:0059[facility] HermannCHEM NWFYM9800-56-89 10:37:002.9[facility] ZtepxqyQXATDBATLW2659-68-10 10:37:006.8 [facility] UlcofpnZDBYZPOVWU6148-56-38 10:37:004.47[facility]annHEMATOLOGY 2020-08-29 10:37:0010.6[facility] GiufenhOJSDKNWYEZ2513-02-91 10:37:0034.0[facility] IeopojsJZRDBRFCYN0361-70-62 10:37:0076.1[facility] QhjzwzgHEFTXXECXO6670-11-53 10:37:00 Test Item Value Reference Range Interpretation Comments MCH (test code = MCH) 23.8 pg 27.0-31.0 [facility] HndhoosEMDSMJRZNP0322-46-84 10:37:0031.3[facility] HermannHEMATOLOGY 2020-08-29 10:37:0018.2[facility] EyfkcdgXZOGRRXTMM3164-92-05 10:37:17300Zkmdsdrf DxafpdbJKJKVVEWUK2913-96-06 10:37:007.5[facility] HwehknwXBKRIXCSZX0200-34-13 10:37:00 Test Item Value Reference Range Interpretation Comments PT (test code = PT) 12.8 s 12.0-14.7 [facility] PxovrndDEBKBLJMYG4968-28-54 10:37:00 Test Item Value Reference Range Interpretation Comments INR (test code = INR) 0.97 1 0.85-1.17 [facility] KmvryrsLZVHWDNKSP7539-92-20 10:37:00 Test Item Value Reference Range Interpretation Comments PTT (test code = PTT) 25.0 s 22.9-35.8 [facility] GmzhrgyDGIZMKAAHF4271-57-15 10:37:0070.5[facility] HermannHEMATOLOGY 2020-08-29 10:37:0018.8[facility] QxbxhvpAWPECLQZZI4180-93-50 10:37:009.5[facility] BbshrziPFRKOYOQPH8985-68-14 10:37:000.9[facility] JcdeedtNAVLFBYSCN6119-46-29 10:37:000.3[facility] WiriqdcCPGNSJMEKP8600-08-58 10:37:004.8[facility] Marty YSUDCETQGT3538-18-03 10:37:001.3[facility] SczzamwAAFRIMLWFR4310-18-01 10:37:000.6 [facility] LljcbdaVURPCCEVOD6295-00-20 10:37:000.1[facility] HermannHEMATOLOGY 2020-08-29 10:37:001+ *ABN*(08/29/20 5:37 AM)[facility] HxdswgoHOHRFVGVCY7771-12-02 10:37:00Not Detected (08/29/20 5:37 AM)[facility] HermannCHLAMYDIA, GC, TV,PCR, IN ZDKGQ3846-77-39 15:38:00 Test Item Value Reference Range Interpretation Comments FT (test code = CHTR) Not detected (qualifier Not Detected N value) FT (test code = Not detected (qualifier Not Detected N NGONO) value) FT (test code = TRVG) Not detected (qualifier Not Detected N value) [facility] OWRWTXDMYLZ2395-97-26 10:57:00 Test Item Value Reference Range Interpretation [...] Seen N URCRYS) [facility] Notes Date/Time Note Provider Source 2021-08-05 14:08:00-00:00 [id number] [address] PATIENT NAME: MARJAN FLEMING ADMIT DATE: 08/05/21 ACCOUNT NO: [id number] ROOM NO: AGE: 66 REPORT TYPE: eTRANSESOPHAGEAL ECHO REPORT SEX: F ADMITTING PHYSICIAN: ATTENDING PHYSICIAN:Mike Lund MD *[facility]* [address] [place] [address] [place] [address] Transesophageal Echocardiogram Patient: Marjan Fleming Study Date: 08/05/2021 BP: 158 / 92 Location: [facility] URN: [id number] : 1955 Age: 66 Height: / Gender: F Weight: / BMI/BSA: / *Ordering Physician: * Mike Lund *Interpreting Physician: * Ashely Mckeon MD *Blow Torch Burner: * Odessa Interiano Indications: POST WATCHMAN. Study [...] benzocaine spray. A transesophageal probe (SN: [id number]) was inserted by the attending sweatband maker without difficulty. L ocation: CV PREP. Patient [...] benzocaine spray. A transeso phageal probe (SN: [id number]) was inserted by the attending cardiolog ist [...] PATIENT NAME: MARJAN FLEMING 1 2021-06-24 11:18:00-00:00 [id number] [place] [id number] PATIENT NAME: MARJAN FLEMING ADMIT DATE: 06/17/21 ACCOUNT NO: [id number] ROOM NO: ADDIS AGE: 66 REPORT TYPE: eTRANSESOPHAGEAL ECHO REPORT SEX: F ADMITTING PHYSICIAN:Mike Lund MD ATTENDING PHYSICIAN:Mike Lund MD *[address] [place] [address] Transesophageal Echocardiogram for [place] Patient: Marjan Fleming Study Date: 06/17/2021 BP: Location: [facility] URN: [id number] : 1955 Age: 66 Height: / Gender: [...] setup: The patient was brought to the located within [facility] in the fasting state.Intravenous access was obtained. Surface E CG leads, blood pressure measurements, and pulse oximetric signals were m onitored. Sedation. Sedation was administered by anesthesiology samreen rodas. Transesophageal echocardiography was performed. A transesophagea l probe was inserted by the anesthesiologist. Images were obtained using a [employer] cardiac ultrasound machine. Location: Catheterization laboratory. Christian woodruff completion: The patient tolerated the procedure well. There were no complications. Findings Conclusions Summary: PATIENT NAME: MARJAN FLEMING 7 1. Study data: Transesophageal Echocardiogram fo r Watchman. 2. Procedure narrative: Transesophageal echocard iography was performed. A transesophageal probe was inserted by the ane sthesiologist. Images were obtained using a [employer] cardiac ultrasound mac dalton. Impressions: Patient with [...] stable. Right groin suture removed by this INDUCTION MACHINE SETTER. No infect ion, bleeding, or hematoma. Dermabond applied and intact. Patient was provided with post-Watchman discharg e instructions. Patient is to follow up with PCP and sweatband maker in 1 t o 2 weeks post discharge. Patient is to follow up with sweatband maker for th e 45-day WESLEY, and for anticoagulation recommendation. Prepared and electronically signed by Ashely Mckeon MD 06/24/2021 11:18 Electronically Signed by Mike Lund MD on at 1118 PATIENT NAME: MARJAN FLEMING 7 2021-06-17 18:10:00-00:00 [id number] [place] [address] PATIENT NAME: MARJAN FLEMING ADMIT DATE: 06/17/21 ACCOUNT NO: [id number] ROOM NO: ADDIS AGE: 66 REPORT TYPE: eECHOCARDIOGRAM REPORT SEX: F ADMITTING PHYSICIAN:Mike Lund MD ATTENDING PHYSICIAN:Mike Lund MD *[place] [address] Limited Transthoracic Echocardiogram Patient: Marjan Fleming Study Date: 06/17/2021 BP: 117 / 82 Location: [facility] URN: [id number] : 1955 Age: 66 Height: 64 in / 162.6 cm Gender: F Weight: 210 lb / 95.5 kg BMI/BSA: 36.1 kg/m 2 / 2.12 m 2 *Ordering Physician: * Bahman Choprap *Interpreting Physician: * Kevin Merino MD *Blow Torch Burner: * Tiarra Loja Indications: Post Watchman/Rule out pericardial effusion. Study data: Transthoracic echocardiogram, limite d study. Procedure: Transthoracic echocardiography was performed. Im age quality was adequate. Limited 2D and limited spectral Dopple r. Location: [facility]. Patient status: Outpatient. Study status: [...] MARJAN FLEMING 7 2021-06-17 11:12:00-00:00 HCACL [facility] ([facility]) Discharge Summary REPORT#:[id number] REPORT STATUS: Signed DATE:06/17/21 TIME: 1112 PATIENT: MARJAN FLEMING UNIT #: [id number] ROOM/BED: [place] [address] : [birth year] AGE: 67 SEX: F ATTEND: René Lund MD ADM AUTHOR: Bahman Chopra * ALL edits or amendments must be made on the [employer]/computer document * PCP PCP Discharge to: home [...] stable. Right groin suture removed by this INDUCTION MACHINE SETTER. No infect ion, bleeding, or hematoma. Dermabond applied and intact. Patient was provided with post-Watchman discharg e instructions. Patient is to follow up with PCP and sweatband maker in 1 to 2 we eks post discharge. Patient is to follow up with sweatband maker for th e 45-day WESLEY, and for [...] breath, lightheadedness, or dizzi ness to the sweatband maker. Dispo: It is medically necessary that patients [...] distress GI: soft, non-tender Extremities: moves all Neuro/HOSPITAL MEDICAL BILLER: alert, oriented X 3 Skin: dry Wound/incision: Location: Right groin suture removed by this INDUCTION MACHINE SETTER. No infect ion, bleeding, or hematoma. Dermabond [...] Tolerated Follow-up Appointments Attending Physician: Attending Physician: Mkie Lund MD Attending physician follow up timeframe: In 1-2 weeks Electronically Signed by Bahman Chopra o n 06/17/21 at 1613 Electronically Signed by Mike Lund MD on 07/14 at 0946 RUST #:[id number] END OF REPORT 2021-06-17 09:43:00-00:00 [phone] [place] [id number] PATIENT NAME: MARJAN FLEMING ADMIT DATE: 06/17/21 ACCOUNT NO: [id number] ROOM NO: ADDIS AGE: 66 REPORT TYPE: eELECTROCARDIOGRAM REPORT SEX: F ADMITTING PHYSICIAN:Mike Lund MD ATTENDING PHYSICIAN:Mike Lund MD Order: [id number] Test Reason : S/P WATCHMAN Test Date/Time [...] PATIENT NAME: MARJAN FLEMING 7 2021-06-17 08:54:00-00:00 [id number] [place] [address] PATIENT NAME: MARJAN FLEMING ADMIT DATE: 06/17/21 ACCOUNT NO: [id number] ROOM NO: [facility] AGE: 66 REPORT TYPE: CARDIAC CATHETERIZATION REPORT SEX: F ADMITTING PHYSICIAN:Mike Lund MD ATTENDING PHYSICIAN:Mike Lund MD PROCEDURE DATE: 06/17/2021 PROCEDURE PERFORMED: Left atrial appendage closu re using a 24 mm Watchman FLX closure device. ACCESS: Right femoral vein, 16-Hong Konger closed wit h afwoah-rt-sjtoc suture. DYE WINCH OPERATOR: Mike Lund MD. SECONDARY COIN DEALER: Kevin Merino MD. COMPLICATIONS: None. BLEEDING: Less [...] I accessed right femo ral vein, placed 8-Hong [place]er [place] sheath. Subsequently, upgraded to 16-H[place] Konger sheath and gave a partial dose of heparin, then took the SL1 sheat h into the SVC over a wire with [place] needle inside, descended under the fluor oscopy [...] I removed the Watchman sheath and the 16-H[place]er sheath and placed jvgfgq-ij-rlxda suture for hemostasis, then achieved a good hemo stasis. CONCLUSION: Left atrial appendage closure using a 24 mm Watchman FLX closure PATIENT NAME: MARJAN FLEMING 7 device. Dictated By: Mike Lund MD WT: CATH:GAYLE/RIKY/ALLA Conf#: [id number]/DID#: [id number] Authenticated by Mike Lund MD On 07/01/2021 12:30:01 PM Electronically Signed by Mike Lund MD on at 1230 PATIENT NAME: MARJAN FLEMING 7 2021-06-16 10:36:00-00:00 [id number] [address] PATIENT NAME: MARJAN FLEMING ADMIT DATE: ACCOUNT NO: [id number] ROOM NO: AGE: 66 REPORT TYPE: eELECTROCARDIOGRAM REPORT SEX: F ADMITTING PHYSICIAN: ATTENDING PHYSICIAN:Mike Lund MD Order: [id number] Test Reason : PREOP Test Date/Time Stamp: [...] Mike Lund Confirmed by:ARMANDO RICHARDS MD at 1127 PATIENT NAME: MARJAN FLEMING 7"
[2023-01-07 20:41] LABS: Absolute Lymphocytes (CBC) 0.7 K/uL (0.7-4.9); Hematocrit 34.5 % (36.0-45.0); Lymphocytes % 14.5 % (15.3-44.8); MCV 81.9 fL (80-100); MPV 6.9 fL (7.6-11.3); Platelets 121 thou/uL (152-406); RBC Red Blood Cell Count 4.21 M/uL (3.86-4.86)
[2023-01-07 21:00] LABS: Potassium 3.1 mEq/L (3.5-5.1); Troponin High Sensitivity 17.5 pg/mL (<58.9)
--- NOTE | 2023-01-07 21:04 | RAD REPORT ---
EXAM DESCRIPTION: [facility]2023 8:50 pm CLINICAL HISTORY: BLUNT CHEST TRAUMA COMPARISON: Chest Single View dated 12/27/2022; Chest Single View dated 12/19/2022; Chest Single View d ated 12/13/2022; Chest Single View dated 11/24/2022 TECHNIQUE: Portable AP view of the chest. FINDINGS: The lungs are clear. No pneumothorax or effusion. Stable cardiomegaly. Mediastinal contour s are unremarkable. IMPRESSION: No acute pulmonary process. Stable cardiomegaly.
--- NOTE | 2023-01-07 21:16 | RAD REPORT ---
EXAM DESCRIPTION: CT - CTHCSPWOC - 01/07/2023 8:38 pm CLINICAL HISTORY: TRAUMA COMPARISON: Head C Spine Mpr Wo Con dated 10/08/2022; Soft Tissue Neck W/Contr dated 09/20/2022; Head C Spine Mpr Wo Con dated 06/24/2022; Head C Spine Mpr Wo Con dated 04/16/2022 TECHNIQUE: Axial thin cut noncontrast CT images of the head were obtained. Axial thin cut noncontrast CT images of the cervical spine were obtained. Multiplanar reformatted images were generated and reviewed. All CT scans are performed using dose optimization technique as appropriate and may include automated exposure control or mA/KV adjustment according to patient size. FINDINGS: CT HEAD WITHOUT CONTRAST: No acute hemorrhage, hydrocephalus or extra-axial collection is identified.Confluent periventricular and deep white matter hypodensities are stable in extent and nonspecific, most suggestive chronic sma ll vessel ischemic changes.No areas of brain edema or midline shift. The paranasal sinuses and mastoids are clear.The calvarium is intact. CT CERVICAL SPINE WITHOUT CONTRAST: No fracture or subluxation.Moderate degenerative changes of the cervical spine.No prevertebral soft t issues swelling is identified. IMPRESSION: No acute traumatic intracranial or cervical spine findings.
--- NOTE | 2023-01-07 21:17 | RAD REPORT ---
EXAM DESCRIPTION: RAD - Lumbar Spine 3 Views - 01/07/2023 8:51 pm CLINICAL HISTORY: LOWER BACK PAIN COMPARISON: Spine Lumbar W obliques dated 07/09/2022; Lumbar Puncture For Dx dated 11/04/2021; Sacrum And Coccyx dated 10/25/2021; Lumbar Spine 3 Views dated 10/25/2021 TECHNIQUE: Lumbar spine, 3 views. FINDINGS: Lumbar vertebral bodies are normal in height and alignment. No fracture or acute bony proc ess seen. Multilevel degenerative changes with endplate remodeling and facet arthropathy most pronoun mauricio at L4-5 and L5-S1, worse on the left. Findings are stable IMPRESSION: No acute osseus abnormality. Stable multilevel degenerative changes as above.
--- NOTE | 2023-01-07 21:17 | RAD REPORT ---
EXAM DESCRIPTION: RAD - Pelvis - 01/07/2023 8:51 pm CLINICAL HISTORY: TRAUMA COMPARISON: Pelvis dated 10/08/2022 TECHNIQUE: Single AP view of the pelvis. FINDINGS: The visualized pelvic ring is intact. No suspicious osseous lesions. Stable mild bilateral hip joint degenerative changes. Other pelvic joints are unremarkable. Visualized aspects of the abdo men and soft tissues are unremarkable. IMPRESSION: No acute osseous abnormality of the bony pelvis. Stable bilateral hip joint degenerativ e changes.
[2023-01-07] MEDS ORDERED: MORPHINE *EXTENDED RELEASE* 15 MG TAB PO ONE (21:48)
--- NOTE | 2023-01-07 21:53 | ER ---
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 pt c/o lower back pain. as6 Coronavirus screen: At this time, the client does not indicate any symptoms associated with coronavirus-19. Ebola Screen: No symptoms or risks identified at this time. Initial Sepsis Screen: Does the patient meet any 2 criteria? No. Patient's initial sepsis screen is negative. Does the patient have a suspected source of infection? No. Patient's initial sepsis screen is negative. Risk Assessment: Do you want to hurt yourself or someone else? Patient reports no desire to harm self or others. Onset of symptoms was January 07, 2023. 20:05 Acuity: BLAYNE 4 as6 20:05 Method Of Arrival: EMS: [facility] as6 Historical: - Allergies: 20:05 Azithromycin; as6 20:05 Bactrim; as6 20:05 butorphanol; as6 20:05 Fentanyl; as6 20:05 Reglan; as6 20:05 Sulfa (Sulfonamide Antibiotics); as6 20:05 TRIMETHOPRIM; as6 - PMHx: 20:05 angina pectoris; Anxiety; Atrial fibrillation; Bipolar disorder; esophageal varicies; as6 Hepatitis; HIV positive; Hypertensive disorder; Migraine; panic attack; - Immunization history:: Client reports receiving the 2nd dose of the Covid vaccine, pfizer. - Social history:: Smoking status: Patient/guardian denies using tobacco, the patient reports quitting approximately 3 years ago. Screenin:08 [facility] ED Fall Risk Assessment (Adult) Score/Fall Risk Level 3 or more points = High as6 Risk. Abuse screen: Denies threats or abuse. Denies injuries from another. Nutritional screening: No deficits noted. Tuberculosis screening: No symptoms or risk factors identified. Assessment: 20:07 General: Appears in no apparent distress. comfortable, Behavior is calm, cooperative. as6 Pain: Complains of pain in low back area. Neuro: Level of Consciousness is awake, alert, obeys commands, Oriented to person, place, time, situation. Cardiovascular: Capillary refill < 3 seconds Patient's skin is warm and dry. Respiratory: Respiratory effort is even, unlabored, Respiratory pattern is regular, symmetrical. Musculoskeletal: Reports pain in low back area. Vital Signs: 20:05 BP 196 / 84; Pulse 108; Resp 18 S; Temp 98.1(O); Pulse Ox 98% on R/A; Weight 79.38 kg as6 (R); Height 5 ft. 4 in. (R); Pain 10/10; 21:17 BP 184 / 96; Pulse 73; Resp 18 S; Pulse Ox 100% on R/A; as6 21:58 BP 141 / 98; Pulse 54; Resp 18 S; Pulse Ox 96% on R/A; as6 20:05 Body Mass Index 30.04 (79.38 kg, 162.56 cm) as6 20:05 Pain Scale: Adult as6 ED Course: 20:05 Patient arrived in ED. as6 20:05 Arm band placed on. as6 20:07 Triage completed. as6 20:09 Bed in low position. Call light in reach. Side rails up X2. as6 20:10 Leyda Capellan MD is Attending Physician. sd2 20:19 Dayo Ko, RN is Primary Nurse. as6 20:35 Inserted saline lock: 24 gauge in right forearm, using aseptic technique. Blood as6 collected. 20:40 CT Head C Spine In Process Unspecified. EDMS 20:52 XRAY Chest (1 view) In Process Unspecified. EDMS 20:53 XRAY Lumbar Spine (3 Views) In Process Unspecified. EDMS 20:53 XRAY Pelvis In Process Unspecified. EDMS 21:58 No provider procedures requiring assistance completed. as6 22:08 Provided Education on: fall prevention. as6 22:08 IV discontinued, intact, bleeding controlled, No redness/swelling at site. Pressure as6 dressing applied. Administered Medications: 20:18 Drug: Acetaminophen PO 1000 mg Route: PO; jb4 22:08 Follow up: Response: No adverse reaction as6 21:39 Drug: morphine PO 15 mg Route: PO; as6 22:08 Follow up: Response: No adverse reaction as6 22:08 Drug: LORazepam PO 1 mg Route: PO; as6 22:08 Follow up: Response: No adverse reaction as6 Medication: 20:09 VIS not applicable for this client. as6 Outcome: 21:52 Discharge ordered by . sd2 21:58 Condition: stable as6 22:08 Discharged to home via wheelchair. as6 22:08 Discharge instructions given to patient, Instructed on discharge instructions, follow up and referral plans. Demonstrated understanding of instructions, follow-up care. 22:09 Patient left the ED. as6 Signatures: Dispatcher [employer] EDMS Mode Bhatt RN RN jb4 Dayo Ko RN RN as6 Leyda Capellan MD MD sd2
--- NOTE | 2023-01-07 21:53 | EDPHYS ---
Physician Documentation [facility] Name: Marjan Kolb Age: 67 yrs Sex: Female : 1955 Arrival Date: 01/07/2023 Time: 20:02 Bed 7 Private MD: ED Physician Leyda Capellan HPI: 01/07 20:12 This 67 yrs old Female presents to ER via EMS with complaints of fall. sd2 20:13 67 yo F presents via EMS with CC of fall 1 hour ago when she had difficulty getting sd2 onto the toilet and slid off to the side. Reports hitting her head on the wall with no LOC and complains of pain to her chest and R lower back area. She reports her chest pain does not feel similar to her prior [place] and feels related to her fall. Denies vomiting, confusion or other symptoms at this time. . Historical: - Allergies: 20:05 Azithromycin; as6 20:05 Bactrim; as6 20:05 butorphanol; as6 20:05 Fentanyl; as6 20:05 Reglan; as6 20:05 Sulfa (Sulfonamide Antibiotics); as6 20:05 TRIMETHOPRIM; as6 - PMHx: 20:05 angina pectoris; Anxiety; Atrial fibrillation; Bipolar disorder; esophageal varicies; as6 Hepatitis; HIV positive; Hypertensive disorder; Migraine; panic attack; - Immunization history:: Client reports receiving the 2nd dose of the Covid vaccine, pfizer. - Social history:: Smoking status: Patient/guardian denies using tobacco, the patient reports quitting approximately 3 years ago. ROS: 20:13 Constitutional: Negative for fever, chills, and weight loss, Eyes: Negative for injury, sd2 pain, redness, and discharge, Neck: Negative for injury, positive for chronic pain, and negative for swelling, Cardiovascular: Positive for chest wall pain, Negative for palpitations, and edema, Respiratory: Negative for shortness of breath, cough, wheezing. Abdomen/GI: Negative for abdominal pain, nausea, vomiting, diarrhea. Back: Positive for injury and pain, MS/Extremity: Negative for injury and deformity, Skin: Negative for injury, rash, and discoloration, Neuro: Positive for headache, Negative for numbness and tingling. Exam: 20:13 Constitutional: This is a well developed, well nourished patient who is awake, alert, sd2 and in no acute distress. Head/Face: Normocephalic, atraumatic. Eyes: EOMI, normal conjunctiva bilaterally Neck: Trachea midline, no thyromegaly or masses palpated, and no cervical lymphadenopathy. Supple, full range of motion without nuchal rigidity, or vertebral point tenderness. No Meningismus. Chest/axilla: Normal chest wall appearance and motion. TTP of R lateral chest wall without crepitus. Cardiovascular: Regular rate and rhythm with a normal S1 and S2. No gallops, murmurs, or rubs. 2+ distal pulses. Respiratory: Lungs have equal breath sounds bilaterally, clear to auscultation and percussion. No rales, rhonchi or wheezes noted. No increased work of breathing, no retractions or nasal flaring. Abdomen/GI: Soft, non-tender, with normal bowel sounds. No guarding or rebound. No evidence of tenderness throughout. Back: No spinal tenderness. No costovertebral tenderness. Full range of motion. No stepoffs or deformities. TTP of R lumbar paraspinal area. Skin: Warm, dry with normal turgor. Normal color with no rashes, no lesions, and no evidence of cellulitis. MS/ Extremity: Pulses equal, no cyanosis. Neurovascular intact. Full, normal range of motion. Psych: Awake, alert, with orientation to person, place and time. Behavior, mood, and affect are within normal limits. 20:32 ECG was reviewed by the Attending Physician. Sinus bradycardia, rate 58, no STEMI sd2 criteria, TWIs in lateral leads Vital Signs: 20:05 BP 196 / 84; Pulse 108; Resp 18 S; Temp 98.1(O); Pulse Ox 98% on R/A; Weight 79.38 kg as6 (R); Height 5 ft. 4 in. (R); Pain 10/10; 21:17 BP 184 / 96; Pulse 73; Resp 18 S; Pulse Ox 100% on R/A; as6 21:58 BP 141 / 98; Pulse 54; Resp 18 S; Pulse Ox 96% on R/A; as6 20:05 Body Mass Index 30.04 (79.38 kg, 162.56 cm) as6 20:05 Pain Scale: Adult as6 MDM: 20:11 Patient medically screened. sd2 20:13 Differential Diagnosis Differential diagnosis includes but is not limited to: Fracture, sd2 contusion, abrasion, closed head injury, pneumothorax, intra-abdominal injury, intracranial hemorrhage, spinal injury among others. Data reviewed: vital signs, nurses notes, EMS record, lab test result(s), EKG, radiologic studies. I considered the following discharge prescriptions or medication management in the emergency department Medications were administered in the Emergency Department. See MAR. Historians other than the Patient: EMS: provides initial report. Care significantly affected by the following chronic conditions: Hypertension, Congestive Heart Failure. 21:50 Counseling: I had a detailed discussion with the patient and/or guardian regarding the sd2 historical points, exam findings, and any diagnostic results supporting the discharge/admit diagnosis, the presence of at least one elevated blood pressure reading (>120/80) during this emergency department visit, lab results, radiology results, the need for outpatient follow up, to return to the emergency department if symptoms worsen or persist or if there are any questions or concerns that arise at home. ED course: Pt feeling improved after treatment. No acute findings on workup. Pt comfortable with plan for discharge and outpatient follow up. BP elevated but no concerning signs or symptoms of end organ failure and patient normally runs in the 160s at home per her report. She has also ran high during previous visits at the hospital. Will continue to monitor at home and follow up with her PCP regarding this. Pt verbalizes understanding of discharge plan and strict return precautions. No focal neuro deficits at time of discharge.. 01/07 20:13 Order name: CBC with Diff; Complete Time: 21:02 sd2 01/07 20:13 Order name: BMP; Complete Time: 21:02 sd2 01/07 20:13 Order name: Troponin High Sensitivity; Complete Time: 21:02 sd2 01/07 20:13 Order name: XRAY Chest (1 view); Complete Time: 21:20 sd2 01/07 20:13 Order name: CT Head C Spine; Complete Time: 21:20 sd2 01/07 20:13 Order name: XRAY Lumbar Spine (3 Views); Complete Time: 21:20 sd2 01/07 20:13 Order name: XRAY Pelvis; Complete Time: 21:20 sd2 01/07 20:13 Order name: EKG - Nurse/Tech; Complete Time: 20:28 sd2 Administered Medications: 20:18 Drug: Acetaminophen PO 1000 mg Route: PO; jb4 22:08 Follow up: Response: No adverse reaction as6 21:39 Drug: morphine PO 15 mg Route: PO; as6 22:08 Follow up: Response: No adverse reaction as6 22:08 Drug: LORazepam PO 1 mg Route: PO; as6 22:08 Follow up: Response: No adverse reaction as6 Disposition Summary: 01/07/23 21:52 Discharge Ordered Location: Home sd2 Problem: new sd2 Symptoms: have improved sd2 Condition: Stable sd2 Diagnosis - Fall from seated position sd2 - Closed head injury, initial encounter sd2 - Acute right-sided low back pain sd2 - Chest wall pain sd2 - Anxiety sd2 Followup: sd2 - With: Private Physician - When: 2 - 3 days - Reason: Recheck today's complaints, Continuance of care, Re-evaluation by your physician Discharge Instructions: - Discharge Summary Sheet sd2 - Acute Back Pain, Adult sd2 - Head Injury, Adult sd2 - Fall Prevention in the Home, Adult sd2 - Managing Anxiety, Adult sd2 Forms: - Medication Reconciliation Form sd2 - Thank You Letter sd2 - Antibiotic Education sd2 - Prescription Opioid Use sd2 - Patient Portal Instructions sd2 - Leadership Thank You Letter sd2 Signatures: Dispatcher [employer] Mode Serrano RN RN jb4 Dayo Ko RN RN as6 Leyda Capellan MD MD sd2
[2023-01-07] MEDS ORDERED: LORAZEPAM 1 MG TABLET ONE (22:11)
[2023-01-07 22:25] VITALS: TEMP 98.1
[2023-01-07 22:45] VITALS: BP 141/98; O2SAT 96
--- NOTE | 2023-01-10 18:05 | EKG ---
Test Date: 2023-01-07 Test Time: 20:26:54 [place] Hand: RV MEASUREMENT RESULTS: Intervals: Rate: 58 [place]: 204 QRSD: 98 QT: 460 QTc: 451 [place]: P: 80 [place]: 204 QRS: 8 T: 209 INTERPRETIVE STATEMENTS: Sinus bradycardia with premature supraventricular complexes Left ventricular hypertrophy with repolarization abnormality Abnormal ECG Compared to ECG 01/05/2023 11:36:29 Atrial premature complex(es) now present Sinus rhythm no longer present Electronically Signed On 01-10-23 17:59:03 CDT by Mike Lund
== END 2023-01-07 22:09 | disposition home or self-care (01) ==
LOC: ER 20:02
DX: S09.90XA Unspecified injury of head, initial encounter (principal); R07.89 Other chest pain; F41.9 Anxiety disorder, unspecified; M54.50 Low back pain, unspecified; W18.11XA Fall from or off toilet without subsequent striking against object, initial encounter; I10 Essential (primary) hypertension; Z21 Asymptomatic human immunodeficiency virus [HIV] infection status; Z88.1 Allergy status to other antibiotic agents; Z88.2 Allergy status to sulfonamides; Z88.3 Allergy status to other anti-infective agents; Z88.5 Allergy status to narcotic agent; Z88.8 Allergy status to other drugs, medicaments and biological substances
CPT/HCPCS: 36415; 70450; 71045; 72100; 72125; 72170; 80048; 84484; 85025; 93005; 99284

== ENCOUNTER 2023-01-11 09:14 | Emergency (ER) | payer OTHER ==
--- OUTSIDE RECORDS SUMMARY | 2023-01-11 09:34 | XMS REPORT | Continuity of Care Document ---
:1955 Author Organization [facility] t Address [address] [place] [address] Care Team Providers Name Role Phone Urmila [...] Attending Clinician Unavailable Robbi Bal Attending Clinician [facility] Attending Clinician Unavailable Isaias Whiteside RN Attending Clinician Unavailable TOMY MARIE Attending Clinician Unavailable Reilly Means MD Attending Clinician Ofe Shields MD Attending Clinician Tomy Marie MD Attending Clinician Doctor Unassigned, [place] Attending Clinician Unavailable Bill COLES Attending Clinician Unavailable Bill Rose Attending Clinician CHARITY MCALLISTER Attending Clinician Unavailable Charity Mcallister MD Attending Clinician GADIEL KOEHLER Attending Clinician Unavailable Mike Lund Attending Clinician Unavailable NIKOLAI REEVES Attending Clinician Unavailable Eliseo Arce MD Attending Clinician Carol Ann IZQUIERDO, Sarai Lieberman Attending Clinician [phone] Ashly Pelletier MA Attending Clinician Unavailable Dagoberto Bass MD Attending Clinician [place] Evangelista Attending Clinician Lab, [facility] Pob I Attending Clinician Unavailable Monica Rodas MA Attending Clinician Unavailable Agustina Ortiz MA Attending Clinician Unavailable Andrez RAMIREZ, Rody Attending Clinician Unavailable Kiirt Flood MD, V. Attending Clinician HEMATPOUR, BEVERLY Attending Clinician Unavailable Caridad HUMAN RESOURCES SUPERVISOR, Gloria Attending Clinician Xiao RAMIREZ, Michael Corbin Attending Clinician Unavailable Team, [facility] Attending Clinician UnavailDO PORSHA Newell Attending Clinician Unavailable Gadiel Koehler MD Attending Clinician Tyrone JENKINS, Eveline Sierra Attending Clinician Stanislav RAMIREZ, Eladio Inman Attending Clinician Unavailable Geraldine SALGUERO, Leyda Attending Clinician [phone] Selvin RAMIREZ, Stefanie Attending Clinician Unavailable [...] Number Effective Date Expiration Date S gabino [facility] COMMUNITY PLAN [id number] 2012 STAR PLUS OON 00:00:00 [facility] [id number] 2019 DUAL COMPLETE HMO 00:00:00 [facility] STAR [id number] 2019 PLUS 00:00:00 MEDICAID [facility] [id number] 2020 00:00:00 [facility] [id number] 2019 [facility] 00:00:00 [employer] MEDICARE ADV [id number] 2019 2019 00:00:00 00:00:00 Problems Condition Condition Condition Status Onset Resolution Last Treating Co mments Source Name Details Category Date Date Treatment Clinician Date Dyspnea, Dyspnea, Disease Active Unive rs unspecifie unspecifie 02-11 it y of d type d type 00:00: [place] 00 Medical Branch Gastropare Gastropare Disease Active Overview : Methodi sis sis 4-[address] [facility] note l might be different from the original. Added automatic ally from request for surgery [id number] Dysphagia Dysphagia Disease Active Overview: Methodi 4-[address] 00:00: [facility] 00 note l might be different from the original. Added automatic ally from request for surgery [id number] CCL / EPS CCL / EPS Diagnosis Active 2020-10-15 Get PVI PVI 3-30 17:07:00 l ABLATION ABLATION 00:00: Patel n W/ CARTO / W/ CARTO / 00 GA / T GA / T Active 08/19/2020 [facility] Food Food Disease Active 2019-05 [...] N/V [facility] hoxazole - Clear 00:00: [facility] trimetho DA Active SV [facility] prim - Clear 00:00: [facility] codeine DA Active SV N/V [facility] -25 Clear 00:00: [facility] Metoclop Propensi Active [place] ramide ty to 12-12 Health adverse 00:00: reaction 00 s BUTORPHA DRUG Active Unknown-Cmnt Un matt NOL INGREDI 11-25 ity of 00:00: [place] [facility] Butorpha Drug Active Unknown - [...] Hives Univers INGREDI 208 ity of 00:00: [place] [facility] TRIMETHO DRUG Active Hives 2018-0 [...] Stop Date Source Natural father Diabetes [facility] Natural father Other - see comments [facility] Natural father [facility] Natural father [facility] Natural [...] Yes University of SARS-CoV-2 (event) 00:00:00 10:25:00 [facility] Tobacco use and 2022-02-11 2022-02-11 Former smokeless Uni versity of exposure 00:00:00 00:00:00 tobacco user [facility] Tobacco Comment 2022-02-11 2022-02-11 Smokes approx 1-2 Un iversity of 00:00:00 00:00:00 cigarettes per [facility] day when she Branch smokes Alcohol intake 2020-12-08 2020-12-08 Current drinker [facility]o dist 00:00:00 00:00:00 of [facility] (finding) Cigarettes smoked 2020-09-05 2020-09-[address] current (pack per 00:00:00 00:00:00 [facility] day) - Reported Cigarette 2020-09-05 2020-09-05 [facility] pack-years 00:00:00 00:00:00 Hospital Alcohol Comment 2016-09-23 2016-09-23 rare Buddhism 00:00:00 00:00:00 Hospital History of tobacco 2011-09-29 User of smokeless University of use 00:00:00 tobacco [facility] Sex Assigned At [birth year] [facility] 00:00:00 00:00:00 Smoking Status Start Date Stop Date Source Ex-smoker 2022-02-11 00:00:00 2022-02-11 00:00:00 [facility] [place] [facility] Medications Ordered Filled Start Stop Current Ordering Indication Dosage Frequency Signature Comments Components Source Medication Medication Date Date Medication? Clinician (SIG) Name Name ravindra Yes [id number] Take one Univers ne-tenofovi 6-12 po daily ity of r alafen 00:00: [place] (DESCOVY) 00 Medical tablet Branch raltegravir Yes [id number] 400mg Take 1 Univers (ISENTRESS) 6-12 tablet by ity of 400 mg 00:00: mouth in [place] tablet 00 the Medical morning Branch and 1 tablet in the evening. DESCOVY Yes [id number] Take one Univers tablet 5-08 po daily ity of 00:00: [place] 00 Medical Branch raltegravir Yes [id number] 400mg Take 1 Univers (ISENTRESS) 5-08 tablet by ity of 400 mg 00:00: mouth in [place] tablet 00 the Medical morning Branch and 1 tablet in the evening. DESCOVY 2022- No [id number] Take one Univers tablet 5-08 06-12 po daily ity of 00:00: 00:00 [place] 00 :00 Medical Branch raltegravir 2022- No [id number] 400mg Take 1 Univers (ISENTRESS) 5-08 06-12 tablet by it y of 400 mg 00:00: 00:00 mouth in [place] tablet 00 :00 the Medical morning Branch and 1 tablet in the evening. emtmarianabi Yes [id number] Take one Univers ne-tenofovi 4-04 po daily ity of r alafen 00:00: [place] (DESCOVY) 00 Medical tablet Branch emtricitabi Yes [id number] Take one Univers ne-tenofovi 4-04 po daily ity of r alafen 00:00: [place] (DESCOVY) 00 Medical tablet Branch emtricitabi 2022- No [id number] Take one Univers ne-tenofovi 4-04 05-08 po daily ity of r alafen 00:00: 00:00 [place] (DESCOVY) 00 :00 Medical tablet Branch potassium 2021-05- No 10meq 10 mEq, IV Univers chloride in 07-11 Piggyback, i ty of water 10 20:00: 22:00 ONCE, 1 [place] mEq/100 mL 00 :00 dose, On Medic al RTU [address] [facility] 05/10/22 at 1400, Administer over 60 Minutes, 100 mL magnesium 2021-05 No 800mg 800 mg, Uni vers oxide 07-11 Oral, ity of (MAG-OX 20:00: 19:37 ONCE, 1 [place] 400) tablet 00 :00 dose, On Medi porfirio [address] [facility] 05/10/22 at 1400, Routine KCL 2021-05 No 40meq 40 mEq, Univers (KLOR-CON 07-11 Oral, ity of M20) tablet 19:15: 19:37 [place]CE, 1 [place] 40 mEq 00 :00 dose, On Medical [facility] 05/10/22 at 1315, JOE hydralAZINE 2021-05 No 10mg 10 mg, Uni vers (APRESOLINE 07-11 Slow IV ity of ) injection 18:45: 18:42 [place] 10 mg 00 :00 ONCE, 1 Medical dose, On [facility] 05/10/22 at 1245, JOE NaCl 0.9% 2021-05 No 1000mL at 999 Uni vers (NS) bolus 07-11 mL/hr, ity of infusion 17:45: 20:00 1,000 mL, [place] 1,000 mL 00 :00 IV Medical Infusion, Branch ONCE, 1 dose, On [facility] 05/10/22 at 1145, JOE cefpodoxime 2021-05- No [id number] 100mg Take 1 Univers 100 mg 2-17 12-25 tablet by ity of tablet 00:00: 05:59 mouth in [place] 00 :00 the Medical morning Branch and 1 tablet in the evening. Do all this for 7 days. cefpodoxime 2021-05- No [id number] 100mg Take 1 Univers 100 mg 2-17 12-25 tablet by ity of tablet 00:00: 05:59 mouth in [place] 00 :00 the [facility] morning Branch and 1 tablet in the evening. Do all this for 7 days. cefpodoxime 2021-05- No [id number] 100mg Take 1 Univers 100 mg 2-17 12-25 tablet by ity of tablet 00:00: 05:59 mouth in [place] 00 :00 the Medical morning Branch and 1 tablet in the evening. Do all this for 7 days. butalbital- 2021-05- No 1{tbl} 1 tablet, Univers acetaminoph 2-16 12-15 Oral, ity of en-caff 00:15: 23:19 ONCE, 1 [place] (ESGIC) 00 :00 dose, On Medical 50-325-40 [place] Branch mg tablet 1 05/06/22 tablet at 1815, JOE NaCl 0.9% 2021-05 No 500mL at 999 Univ ers (NS) bolus 2-16 12-16 mL/hr, 500 it y of infusion 00:00: 00:17 mL, IV [place] 500 mL 00 :00 Infusion, Medical ONCE, 1 Branch dose, On [facility] 05/06/22 at 1800, JOE ketorolac 2021-05 No 15mg 15 mg, Unive rs (TORADOL) 2-15 12-15 Slow IV ity of injection 22:00: 22:19 Push, [place] 15 mg 00 :00 ONCE, 1 Medical dose, On Branch [facility] 05/06/22 at 1600, JOE NaCl 0.9% 2021-05- No 1000mL at 999 Uni vers (NS) bolus 2-15 12-15 mL/hr, ity of infusion 22:00: 23:41 1,000 mL, [place] 1,000 mL 00 :00 IV Medical Infusion, Branch ONCE, 1 dose, On [facility] 05/06/22 at 1600, JOE ondansetron 2021-05 No 8mg 8 mg, Slow Univers (ZOFRAN 2-15 12-15 IV Push, ity of (PF)) 21:15: 22:19 ONCE, 1 [place] injection 8 00 :00 dose, On Medi porfirio mg [facility] 05/06/22 at 1515, JOE ondansetron 2021-05 Yes [id number] 1-2 U nivers 4 mg tablet 2-15 tablets ity o f 00:00: every 8 [place] 00 hours as Medical needed for Branch nausea benzonatate 2021-05 Yes [id number] 200mg Take 1 Univers 200 mg 2-15 capsule by ity of capsule 00:00: mouth 3 (three) Medical times Branch daily as needed for Cough. albuterol 2021-05 Yes [id number] 2{puff} Inhale 2 Univers 90 2-15 Puffs ity of mcg/actuati 00:00: every 4 [place] on inhaler 00 (four) Medical hours as Branch needed for Wheezing or Shortness of Breath. butalbital- 2021-05 Yes [id number] 1{tbl} Take 1 Univers acetaminoph 2-15 tablet by ity of en-caff 00:00: mouth [place] 50-325-40 00 every 4 Medical mg tablet (four) Branch hours as needed (headache) . ondansetron 2021-05 Yes [id number] 1-2 U nivers 4 mg tablet 2-15 tablets ity o f 00:00: every 8 [place] 00 hours as Medical needed for Branch nausea benzonatate 2021-05 Yes [id number] 200mg Take 1 Univers 200 mg 2-15 capsule by ity of capsule 00:00: mouth 3 (three) Medical times Branch daily as needed for Cough. albuterol 2021-05 Yes [id number] 2{puff} Inhale 2 Univers 90 2-15 Puffs ity of mcg/actuati 00:00: every 4 [place] on inhaler 00 (four) Medical hours as Branch needed for Wheezing or Shortness of Breath. butalbital- 2021-05 Yes [id number] 1{tbl} Take 1 Univers acetaminoph 2-15 tablet by ity of en-caff 00:00: mouth [place] 50-325-40 00 every 4 Medical mg tablet (four) Branch hours as needed (headache) . ondansetron 2021-05 Yes [id number] 1-2 U nivers 4 mg tablet 2-15 tablets ity o f 00:00: every 8 [place] 00 hours as Medical needed for Branch nausea benzonatate 2021-05 Yes [id number] 200mg Take 1 Univers 200 mg 2-15 capsule by ity of capsule 00:00: mouth 3 00 (three) Medical times Branch daily as needed for Cough. albuterol 2021-05 Yes [id number] 2{puff} Inhale 2 Univers 90 2-15 Puffs ity of mcg/actuati 00:00: every 4 [place] on inhaler 00 (four) Medical hours as Branch needed for Wheezing or Shortness of Breath. butalbital- 2021-05 Yes [id number] 1{tbl} Take 1 Univers acetaminoph 2-15 tablet by ity of en-caff 00:00: mouth [place] 50-325-40 00 every 4 Medical mg tablet (four) Branch hours as needed (headache) . ondansetron 2021-05 Yes [id number] 1-2 U nivers 4 mg tablet 2-15 tablets ity o f 00:00: every 8 [place] 00 hours as Medical needed for Branch nausea benzonatate 2021-05 Yes [id number] 200mg Take 1 Univers 200 mg 2-15 capsule by ity of capsule 00:00: mouth 3 [place] 00 (three) Medical times Branch daily as needed for Cough. albuterol 2021-05 Yes [id number] 2{puff} Inhale 2 Univers 90 2-15 Puffs ity of mcg/actuati 00:00: every 4 [place] on inhaler 00 (four) Medical hours as Branch needed for Wheezing or Shortness of Breath. butalbital- 2021-05 Yes [id number] 1{tbl} Take 1 Univers acetaminoph 2-15 tablet by ity of en-caff 00:00: mouth [place] 50-325-40 00 every 4 Medical mg tablet (four) Branch hours as needed (headache) . ondansetron 2021-05 Yes [id number] 1-2 U nivers 4 mg tablet 2-15 tablets ity o f 00:00: every 8 [place] 00 hours as Medical needed for Branch nausea benzonatate 2021-05 Yes [id number] 200mg Take 1 Univers 200 mg 2-15 capsule by ity of capsule 00:00: mouth 3 [place] 00 (three) Medical times Branch daily as needed for Cough. albuterol 2021-05 Yes [id number] 2{puff} Inhale 2 Univers 90 2-15 Puffs ity of mcg/actuati 00:00: every 4 [place] on inhaler 00 (four) Medical hours as Branch needed for Wheezing or Shortness of Breath. butalbital- 2021-05 Yes [id number] 1{tbl} Take 1 Univers acetaminoph 2-15 tablet by ity of en-caff 00:00: mouth [place] 50-325-40 00 every 4 Medical mg tablet (four) Branch hours as needed (headache) . ondansetron 2021-05 Yes [id number] 1-2 U nivers 4 mg tablet 2-15 tablets ity o f 00:00: every 8 [place] 00 hours as Medical needed for Branch nausea benzonatate 2021-05 Yes [id number] 200mg Take 1 Univers 200 mg 2-15 capsule by ity of capsule 00:00: mouth 3 [place] 00 (three) Medical times Branch daily as needed for Cough. albuterol 2021-05 Yes [id number] 2{puff} Inhale 2 Univers 90 2-15 Puffs ity of mcg/actuati 00:00: every 4 [place] on inhaler 00 (four) Medical hours as Branch needed for Wheezing or Shortness of Breath. butalbital- 2021-05 Yes [id number] 1{tbl} Take 1 Univers acetaminoph 2-15 tablet by ity of en-caff 00:00: mouth [place] 50-325-40 00 every 4 Medical mg tablet (four) Branch hours as needed (headache) . ondansetron 2021-05 Yes [id number] 1-2 U nivers 4 mg tablet 2-15 tablets ity o f 00:00: every 8 [place] 00 hours as Medical needed for Branch nausea benzonatate 2021-05 Yes [id number] 200mg Take 1 Univers 200 mg 2-15 capsule by ity of capsule 00:00: mouth 3 00 (three) Medical times Branch daily as needed for Cough. albuterol 2021-05 Yes [id number] 2{puff} Inhale 2 Univers 90 2-15 Puffs ity of mcg/actuati 00:00: every 4 [place] on inhaler 00 (four) Medical hours as Branch needed for Wheezing or Shortness of Breath. butalbital- 2021-05 Yes [id number] 1{tbl} Take 1 Univers acetaminoph 2-15 tablet by ity of en-caff 00:00: mouth [place] 50-325-40 00 every 4 Medical mg tablet (four) Branch hours as needed (headache) . ondansetron 2021-05 Yes [id number] 1-2 U nivers 4 mg tablet 2-15 tablets ity o f 00:00: every 8 [place] 00 hours as Medical needed for Branch nausea benzonatate 2021-05 Yes [id number] 200mg Take 1 Univers 200 mg 2-15 capsule by ity of capsule 00:00: mouth 3 [place] 00 (three) Medical times Branch daily as needed for Cough. albuterol 2021-05 Yes [id number] 2{puff} Inhale 2 Univers 90 2-15 Puffs ity of mcg/actuati 00:00: every 4 [place] on inhaler 00 (four) Medical hours as Branch needed for Wheezing or Shortness of Breath. butalbital- 2021-05 Yes [id number] 1{tbl} Take 1 Univers acetaminoph 2-15 tablet by ity of en-caff 00:00: mouth [place] 50-325-40 00 every 4 Medical mg tablet (four) Branch hours as needed (headache) . ondansetron 2021-05 Yes [id number] 1-2 U nivers 4 mg tablet 2-15 tablets ity o f 00:00: every 8 [place] 00 hours as Medical needed for Branch nausea benzonatate 2021-05 Yes [id number] 200mg Take 1 Univers 200 mg 2-15 capsule by ity of capsule 00:00: mouth 3 00 (three) Medical times Branch daily as needed for Cough. albuterol 2021-05 Yes [id number] 2{puff} Inhale 2 Univers 90 2-15 Puffs ity of mcg/actuati 00:00: every 4 [place] on inhaler 00 (four) Medical hours as Branch needed for Wheezing or Shortness of Breath. butalbital- 2021-05 Yes [id number] 1{tbl} Take 1 Univers acetaminoph 2-15 tablet by ity of en-caff 00:00: mouth [place] 50-325-40 00 every 4 Medical mg tablet (four) Branch hours as needed (headache) . ondansetron 2021-05 Yes [id number] 1-2 U nivers 4 mg tablet 2-15 tablets ity o f 00:00: every 8 [place] 00 hours as Medical needed for Branch nausea benzonatate 2021-05 Yes [id number] 200mg Take 1 Univers 200 mg 2-15 capsule by ity of capsule 00:00: mouth 3 [place] 00 (three) Medical times Branch daily as needed for Cough. albuterol 2021-05 Yes [id number] 2{puff} Inhale 2 Univers 90 2-15 Puffs ity of mcg/actuati 00:00: every 4 [place] on inhaler 00 (four) Medical hours as Branch needed for Wheezing or Shortness of Breath. butalbital- 2021-05 Yes [id number] 1{tbl} Take 1 Univers acetaminoph 2-15 tablet by ity of en-caff 00:00: mouth [place] 50-325-40 00 every 4 Medical mg tablet (four) Branch hours as needed (headache) . [facility] 2021-05- No [id number] 2{tbl} Take 2 Univers r-ritonavir 2-15 12-21 tablets by i ty of (PAXLOVID, 00:00: 05:59 mouth in [place] EUA,) 300 00 :00 the Medical mg (150 mg morning Branch x 2)-100 mg and 2 tablet tablets in the evening. Do all this for 5 days. [facility] 2021-05- No [id number] 2{tbl} Take 2 Univers r-ritonavir 2-15 12-21 tablets by i ty of (PAXLOVID, 00:00: 05:59 mouth [place] EUA,) 300 00 :00 the Medical mg (150 mg morning Branch x 2)-100 mg and 2 tablet tablets in the evening. Do all this for 5 days. [facility] 2021-05- No [id number] 2{tbl} Take 2 Univers r-ritonavir 2-15 12-21 tablets by i ty of (PAXLOVID, 00:00: 05:59 mouth [place] EUA,) 300 00 :00 the Medical mg (150 mg morning Branch x 2)-100 mg and 2 tablet tablets in the evening. Do all this for 5 days. [facility] 2021-05- No [id number] 2{tbl} Take 2 Univers r-ritonavir 2-15 12-21 [...] 04/22/22 at 1645, Routine amoxicillin 2021-05 Yes [id number] 1{tbl} Take 1 Univers -clavulanat 2-01 [id number] tablet by i ty of e 875-125 00:00: mouth [place] mg per 00 every 12 Medical tablet (twelve) Branch hours. ondansetron 2021-05 Yes [id number] 4mg Take 1 Univers 4 mg 2- [id number] tablet by ity of disintegrat 00:00: mouth [place] ing tablet 00 every 8 Medica l (eight) Branch hours as needed for Nausea and Vomiting (N/V). amoxicillin 2021-05 Yes [id number] 1{tbl} Take 1 Univers -clavulanat 2- [id number] tablet by i ty of e 875-125 00:00: mouth [place] mg per 00 every 12 Medical tablet (twelve) Branch hours. ondansetron 2021-05 Yes [id number] 4mg Take 1 Univers 4 mg 2- [id number] tablet by ity of disintegrat 00:00: mouth [place] ing tablet 00 every 8 Medica l (eight) Branch hours as needed for Nausea and Vomiting (N/V). amoxicillin 2021-05 Yes [id number] 1{tbl} Take 1 Univers -clavulanat 2-01 [id number] tablet by i ty of e 875-125 00:00: mouth [place] mg per 00 every 12 Medical tablet (twelve) Branch hours. ondansetron 2021-05 Yes [id number] 4mg Take 1 Univers 4 mg 2-01 [id number] tablet by ity of disintegrat 00:00: mouth [place] ing tablet 00 every 8 Medica l (eight) Branch hours as needed for Nausea and Vomiting (N/V). amoxicillin 2021-05 Yes [id number] 1{tbl} Take 1 Univers -clavulanat 2-01 [id number] tablet by i ty of e 875-125 00:00: mouth [place] mg per 00 every 12 Medical tablet (twelve) Branch hours. ondansetron 2021-05 Yes [id number] 4mg Take 1 Univers 4 mg 2-01 [id number] tablet by ity of disintegrat 00:00: mouth [place] ing tablet 00 every 8 Medica l (eight) Branch hours as needed for Nausea and Vomiting (N/V). amoxicillin 2021-05 Yes [id number] 1{tbl} Take 1 Univers -clavulanat 2-01 [id number] tablet by i ty of e 875-125 00:00: mouth [place] mg per 00 every 12 Medical tablet (twelve) Branch hours. ondansetron 2021-05 Yes [id number] 4mg Take 1 Univers 4 mg 2-01 [id number] tablet by ity of disintegrat 00:00: mouth [place] ing tablet 00 every 8 Medica l (eight) Branch hours as needed for Nausea and Vomiting (N/V). amoxicillin 2021-05 Yes [id number] 1{tbl} Take 1 Univers -clavulanat 2-01 [id number] tablet by i ty of e 875-125 00:00: mouth [place] mg per 00 every 12 Medical tablet (twelve) Branch hours. ondansetron 2021-05 Yes [id number] 4mg Take 1 Univers 4 mg 2- [id number] tablet by ity of disintegrat 00:00: mouth [place] ing tablet 00 every 8 Medica l (eight) Branch hours as needed for Nausea and Vomiting (N/V). amoxicillin 2021-05 Yes [id number] 1{tbl} Take 1 Univers -clavulanat 2-01 [id number] tablet by i ty of e 875-125 00:00: mouth [place] mg per 00 every 12 Medical tablet (twelve) Branch hours. ondansetron 2021-05 Yes [id number] 4mg Take 1 Univers 4 mg 2-01 [id number] tablet by ity of disintegrat 00:00: mouth [place] ing tablet 00 every 8 Medica l (eight) Branch hours as needed for Nausea and Vomiting (N/V). amoxicillin 2021-05 Yes [id number] 1{tbl} Take 1 Univers -clavulanat 2-01 [id number] tablet by i ty of e 875-125 00:00: mouth [place] mg per 00 every 12 Medical tablet (twelve) Branch hours. ondansetron 2021-05 Yes [id number] 4mg Take 1 Univers 4 mg 2-01 [id number] tablet by ity of disintegrat 00:00: mouth [place] ing tablet 00 every 8 Medica l (eight) Branch hours as needed for Nausea and Vomiting (N/V). amoxicillin 2021-05 Yes [id number] 1{tbl} Take 1 Univers -clavulanat 2-01 [id number] tablet by i ty of e 875-125 00:00: mouth [place] mg per 00 every 12 Medical tablet (twelve) Branch hours. ondansetron 2021-05 Yes [id number] 4mg Take 1 Univers 4 mg 2- [id number] tablet by ity of disintegrat 00:00: mouth [place] ing tablet 00 every 8 Medica l (eight) Branch hours as needed for Nausea and Vomiting (N/V). amoxicillin 2021-05 Yes [id number] 1{tbl} Take 1 Univers -clavulanat 2-01 [id number] tablet by i ty of e 875-125 00:00: mouth [place] mg per 00 every 12 Medical tablet (twelve) Branch hours. ondansetron 2021-05 Yes [id number] 4mg Take 1 Univers 4 mg 2- 163055 tablet by ity of disintegrat 00:00: mouth [place] ing tablet 00 every 8 Medica l (eight) Branch hours as needed for Nausea and Vomiting (N/V). amoxicillin 2021-05 Yes [id number] 1{tbl} Take 1 Univers -clavulanat 2-01 [id number] tablet by i ty of e 875-125 00:00: mouth [place] mg per 00 every 12 Medical tablet (twelve) Branch hours. ondansetron 2021-05 Yes [id number] 4mg Take 1 Univers 4 mg 2- 526520 tablet by ity of disintegrat 00:00: mouth [place] ing tablet 00 every 8 Medica l (eight) Branch hours as needed for Nausea and Vomiting (N/V). amoxicillin 2021-05 Yes [id number] 1{tbl} Take 1 Univers -clavulanat 2-01 [id number] tablet by i ty of e 875-125 00:00: mouth [place] mg per 00 every 12 Medical tablet (twelve) Branch hours. ondansetron 2021-05 Yes [id number] 4mg Take 1 Univers 4 mg 2-01 [id number] tablet by ity of disintegrat 00:00: mouth [place] ing tablet 00 every 8 Medica l (eight) Branch hours as needed for Nausea and Vomiting (N/V). zoster 2021-05- No [id number] .5mL 0.5 mL by Univers vaccine, 0-05 03- 9104 Intramuscu ity of recombinant 00:00: 04:59 lar route [place] (SHINGRIX, 00 :00 once now Medic al PF,) for 1 Branch injection dose. And repeat in 2-6 months zoster 2021-05- No [id number] .5mL 0.5 mL by Univers vaccine, 0-05 03- 9104 Intramuscu ity of recombinant 00:00: 04:59 lar route [place] (SHINGRIX, 00 :00 once now Medic al PF,) for 1 Branch injection dose. And repeat in 2-6 months zoster 2021-05- No [id number] .5mL 0.5 mL by Univers vaccine, 0-05 [...] 1 mg tablet 19:28: at [place] [address] bedtime. Medical Branch traZODone 0 Yes 50mg Take 50 mg Un matt 100 mg 9-27 by mouth ity of tablet 19:28: at [place] [address] bedtime. Medical Branch hydralAZINE 2021-0 Yes 25mg [...] 1 mg tablet 19:28: at [place] [address] bedtime. Medical Branch traZODone 2021-0 Yes 50mg Take 50 mg Un matt 100 mg 9-27 by mouth ity of tablet 19:28: at [place] [address] bedtime. Medical Branch hydralAZINE 2021-0 Yes 25mg [...] 1 mg tablet 19:28: at [place] [address] bedtime. Medical Branch traZODone 2-0 Yes 50mg Take 50 mg Un matt 100 mg 9-27 by mouth ity of tablet 19:28: at [place] [address] bedtime. Medical Branch hydralAZINE 2-0 Yes 25mg [...] 1 mg tablet 19:28: at [place] [address] bedtime. Medical Branch traZODone 2021-0 Yes 50mg Take 50 mg Un matt 100 mg 9-27 by mouth ity of tablet 19:28: at [place] [address] bedtime. Medical Branch hydralAZINE 2021-0 Yes 25mg [...] 1 mg tablet 19:28: at [place] [address] bedtime. Medical Branch traZODone 2021-0 Yes 50mg Take 50 mg Un matt 100 mg 9-27 by mouth ity of tablet 19:28: at [place] [address] bedtime. Medical Branch hydralAZINE 2021-0 Yes 25mg [...] 1 mg tablet 19:28: at [place] [address] bedtime. Medical Branch traZODone 2021-0 Yes 50mg Take 50 mg Un matt 100 mg 9-27 by mouth ity of tablet 19:28: at [place] [address] bedtime. Medical Branch hydralAZINE 2021-0 Yes 25mg [...] 1 mg tablet 19:28: at [place] [address] bedtime. Medical Branch traZODone 2021-0 Yes 50mg Take 50 mg Un matt 100 mg 9-27 by mouth ity of tablet 19:28: at [place] [address] bedtime. Medical Branch hydralAZINE 2021-0 Yes 25mg [...] 1 mg tablet 19:28: at [place] [address] bedtime. Medical Branch traZODone 2021-0 Yes 50mg Take 50 mg Un matt 100 mg 9- by mouth ity of tablet 19:28: at [place] [address] bedtime. Medical Branch hydralAZINE 2021-0 Yes 25mg [...] 1 mg tablet 19:28: at [place] [address] bedtime. Medical Branch traZODone 2-0 Yes 50mg Take 50 mg Un matt 100 mg 9-27 by mouth ity of tablet 19:28: at [place] [address] bedtime. Medical Branch hydralAZINE 2021-0 Yes 25mg [...] 100 mg 04 (two) Medical tablet times [place] daily. amLODIPine 2021-0 Yes 10mg Take 10 mg U nivers (NORVASC) 9- by mouth ity of 10 mg 19:28: daily. [place] tablet 04 Medical Branch clonazePAM 2021-0 Yes 1mg Take 1 mg Un matt (KLONOPIN) 9-27 by mouth ity o f 1 mg tablet 19:28: at [place] [address] bedtime. Medical Branch traZODone 2-0 Yes 50mg Take 50 mg Un matt 100 mg 9-27 by mouth ity of tablet 19:28: at [place] [address] bedtime. Medical Branch hydralAZINE 2-0 Yes 25mg [...] 1 mg tablet 19:28: at [place] [address] bedtime. Medical Branch traZODone 2021-0 Yes 50mg Take 50 mg Un matt 100 mg 9-27 by mouth ity of tablet 19:28: at [place] [address] bedtime. Medical Branch hydralAZINE 2021-0 Yes 25mg [...] 1 mg tablet 19:28: at [place] [address] bedtime. Medical Branch traZODone 2021-0 Yes 50mg Take 50 mg Un matt 100 mg 9-27 by mouth ity of tablet 19:28: at [place] [address] bedtime. Medical Branch hydralAZINE 2021-0 Yes 25mg [...] 1 mg tablet 19:28: at [place] [address] bedtime. Medical Branch traZODone 2021-0 Yes 50mg Take 50 mg Un matt 100 mg 9- by mouth ity of tablet 19:28: at [place] [address] bedtime. Medical Branch hydralAZINE 2021-0 Yes 25mg [...] 1 mg tablet 19:28: at [place] [address] bedtime. Medical Branch traZODone 2022-0 Yes 50mg Take 50 mg Un matt 100 mg 9-27 by mouth ity of tablet 19:28: at [place] [address] bedtime. Medical Branch hydralAZINE 2-0 Yes 25mg [...] 1 mg tablet 19:28: at [place] [address] bedtime. Medical Branch traZODone 2-0 Yes 50mg Take 50 mg Un matt 100 mg 9-27 by mouth ity of tablet 19:28: at [place] [address] bedtime. Medical Branch hydralAZINE 2021-0 Yes 25mg [...] 1 mg tablet 19:28: at [place] [address] bedtime. Medical Branch traZODone 2022-0 Yes 50mg Take 50 mg Un matt 100 mg 9-27 by mouth ity of tablet 19:28: at [place] [address] bedtime. Medical Branch hydralAZINE 2-0 Yes 25mg [...] 1 mg tablet 19:28: at [place] [address] bedtime. Medical Branch traZODone 2-0 Yes 50mg Take 50 mg Un matt 100 mg 9-27 by mouth ity of tablet 19:28: at [place] [address] bedtime. Medical Branch hydralAZINE 2-0 Yes 25mg [...] ity of tablet 19:28: at [place] [address] bedtime. Medical Branch hydralAZINE 2021-0 Yes 25mg [...] 1 mg tablet 19:28: at [place] [address] bedtime. Medical Branch traZODone 2021-0 Yes 50mg Take 50 mg Un matt 100 mg 9-27 by mouth ity of tablet 19:28: at [place] [address] bedtime. Medical Branch hydralAZINE 2021-0 Yes 25mg [...] 1 mg tablet 19:28: at [place] [address] bedtime. Medical Branch traZODone Yes 50mg Take 50 mg Un matt 100 mg 02-16 by mouth ity of tablet 19:28: at [place] [address] bedtime. [facility] Branch cefpodoxime 2021- No [id number] 200mg Take 1 [facility] 200 mg 02-16 tablet by ity of tablet 00:00: 04:59 mouth in [place] 00 :00 the Medical morning Branch and 1 tablet in the evening. Do all this for 3 days. cefpodoxime 2021- No [id number] 200mg Take 1 [facility] 200 mg 02-16 tablet by ity of tablet 00:00: 04:59 mouth in [place] 00 :00 the [facility] and 1 tablet in the evening. Do all this for 3 days. haloperidol 2021- No 2mg 2 mg, Slow Univers lactate 02-15 IV Push, ity of (HALDOL) 09:00: 09:12 ONCE, 1 [place] injection 2 00 :00 dose, On Medi porfirio mg Mon [place] 02/15/22 at 0400, Routine hydroCHLORO Yes 25mg 25 mg, Univ ers thiazide 9-25 Oral, ity of (ESIDRIX) 14:00: DAILY, [place] capsule 25 00 First dose Med ical mg on [place] [facility] 02/14/22 at 0900, Until Discontinu ed, Routine butalbital- Yes 1{tbl} 1 tablet, [facility] acetaminoph 24 Oral, ity of en-caff 18:46: Q6HPRN, [place] (ESGIC) 06 Starting Medical 50-325-40 on [facility] Branch mg tablet 1 02/13/22 at [...] of 2,000 mg in 17:00: 18:24 Piggyback, [place] NaCl 0.9% 00 :00 Q24H ABX, Medic [...] dose [place] mg 00 on [facility] Medical 02/11/22 at Branch 1300, Until Discontinu ed, Routine raltegravir 2021-0 Yes 400mg 400 mg, Un matt (ISENTRESS) 02-11 Oral, BID, it y of tablet 400 18:00: First dose [place] mg 00 on [facility] 02/11/22 at Branch 1300, Until Discontinu ed, JOE metoprolol 2021-0 Yes 100mg 100 mg, Uni vers tartrate 02-11 Oral, BID, ity o f (LOPRESSOR) 18:00: First dose [place] tablet 100 00 on [facility] mg 02/11/22 at Branch 1300, Until Discontinu ed, Routine lisinopriL 0 Yes 40mg 40 mg, Unive rs (PRINIVIL,Z 02-11 Oral, BID, it y of ESTRIL) 18:00: First dose [place] tablet 40 00 on [facility] mg 02/11/22 at Branch 1300, Until Discontinu ed, Routine emtricitabi 0 Yes 1{tbl} 1 tablet, [facility] 02-11 Oral, ity of r alafen 18:00: DAILY, [place] (DESCOVY) 00 First dose Medi porfirio tablet 1 on [facility] tablet 02/11/22 at 1300, Until Discontinu ed, Routine ipratropium 0 Yes .5mg 0.5 mg, Uni vers (ATROVENT) 02-11 Inhalation ity of 0.02 % 17:57: , QIDPRN, [place] nebulizer 10 Starting Medica l solution on [facility] Branch 0.5 mg 02/11/22 at 1257, Until Discontinu ed, Routine, Wheezing, Shortness of Breath amLODIPine 2021-0 Yes 10mg 10 mg, Unive rs (NORVASC) 02-11 Oral, ity of tablet 10 17:30: DAILY, [place] mg 00 First dose Medical (after Branch last modificati on) on [facility] 02/11/22 at 1230, Until Discontinu ed, Routine hydrALAZINE 0 2022- No 25mg 25 mg, Uni vers (APRESOLINE 02-11- Oral, ity of ) tablet 25 17:30: 12:54 DAILY, [place] mg 00 :55 First dose Medical (after Branch last modificati on) on [facility] 02/11/22 at 1230, Until Discontinu ed, Routine HYDROcodone 2021- No 1{tbl} 1 tablet, Univers -acetaminop 02-11 Oral, ity of hen (NORCO 14:11: 17:37 Q6HPRN, [place] 5) 5-325 mg 03 :24 Starting Medi porfirio tablet 1 on [facility] Branch tablet 02/11/22 at 0911, Until Tue02/12/22 at 1237, Routine, Pain (scale 7-10) melatonin Yes 3mg 3 mg, Univers (MELATIN) 02-11 Oral, ity of tablet 3 mg 14:08: QHSPRN, [place] 17 Starting Medical on [facility] Branch 02/11/22 at 0908, Until Discontinu ed, Routine, Insomnia acetaminoph 2021- No 1{tbl} 1 tablet, Univers en-codeine 02-11 Oral, ity of (TYLENOL 14:06: 17:37 [facility] ER[facility], [place] #3) 300-30 19 :24 Starting Medic al mg tablet 1 on [facility] tablet 02/11/22 at 0906, Until Tue02/12/22 at 1237, Routine, Pain (scale 4-6) sennosides- Yes 1{tbl} 1 tablet, Univers docusate 02-11 Oral, ity of sodium 14:06: QDAILYPRN, [place] (SENOKOT-S) 09 Starting Medi porfirio 8.6-50 mg on [facility] per tablet 02/11/22 at 1 tablet 0906, Until Discontinu ed, Routine, Constipati on ondansetron 0 Yes 4mg 4 mg, Slow Univers (ZOFRAN 02-11 IV Push, ity of (PF)) 14:05: [place] injection 4 59 Starting Medi porfirio mg on [facility] Branch 02/11/22 at 0905, Until Discontinu ed, Routine, Nausea and Vomiting (N/V) acetaminoph Yes 650mg 650 mg, Un matt en 02-11 Oral, ity of (TYLENOL) 14:04: Q6HPRN, [place] tablet 650 37 Starting Medic al mg [...] & [facility] 54 Medical Branch amLODIPine 0 Yes 10mg Take 10 mg U nivers (NORVASC) 02-11 by mouth ity of 10 mg 09:10: daily. [facility] 54 [facility] Branch piperacilli 2021- No 3.375g [...] of therapy: 72 hours iopamidol 2021- No [id number] 60mL 60 mL, Univers (ISOVUE 02-11 Intravenou [...] 02/11/22 at 0015, JOE emtricitabi 0 Yes [id number] Take one Univers ne-tenofovi 9-12 po daily ity of r alafen 00:00: [place] (DESCOVY) Medical tablet Branch emtricitabi Yes [id number] Take one Univers ne-tenofovi 9-12 po daily ity of r alafen 00:00: [place] (DESCOVY) 00 Medical tablet Branch emtricitabi Yes [id number] Take one Univers ne-tenofovi 9-12 po daily ity of r alafen 00:00: [place] (DESCOVY) 00 Medical tablet Branch emtricitabi Yes [id number] Take one Univers ne-tenofovi 9-12 po daily ity of r alafen 00:00: [place] (DESCOVY) 00 Medical tablet Branch emtricitabi Yes [id number] Take one Univers ne-tenofovi 9-12 po daily ity of r alafen 00:00: [place] (DESCOVY) 00 Medical tablet Branch emtricitabi Yes [id number] Take one Univers ne-tenofovi 9-12 po daily ity of r alafen 00:00: [place] (DESCOVY) 00 Medical tablet [facility] [id number] Take one Univers ne-tenofovi 9-12 po daily ity of r alafen 00:00: [place] (DESCOVY) 00 Medical tablet Branch emtricita Yes [id number] Take one Univers ne-tenofovi 9-12 po daily ity of r alafen 00:00: [place] (DESCOVY) 00 Medical tablet Branch emtricita Yes [id number] Take one Univers ne-tenofovi 9-12 po daily ity of r alafen 00:00: [place] (DESCOVY) 00 Medical tablet Branch emtricita Yes [id number] Take one Univers ne-tenofovi 9-12 po daily ity of r alafen 00:00: [place] (DESCOVY) 00 Medical tablet Branch [facility] Yes [id number] Take one Univers ne-tenofovi 9-12 po daily ity of r alafen 00:00: [place] (DESCOVY) 00 Medical tablet Branch [facility] Yes [id number] Take one Univers ne-tenofovi 9-12 po daily ity of r alafen 00:00: [place] (DESCOVY) 00 Medical tablet Branch [facility] Yes [id number] Take one Univers ne-tenofovi 9-12 po daily ity of r alafen 00:00: [place] (DESCOVY) 00 Medical tablet Branch emtricita Yes [id number] Take one Univers ne-tenofovi 9-12 po daily ity of r alafen 00:00: [place] (DESCOVY) 00 Medical tablet Branch emtricita Yes [id number] Take one Univers ne-tenofovi 9-12 po daily ity of r alafen 00:00: [place] (DESCOVY) 00 Medical tablet Branch emtricita Yes [id number] Take one Univers ne-tenofovi 9-12 po daily ity of r alafen 00:00: [place] (DESCOVY) 00 Medical tablet Branch emtricita Yes [id number] Take one Univers ne-tenofovi 9-12 po daily ity of r alafen 00:00: [place] (DESCOVY) 00 Medical tablet Branch emtricitabi 2022- No [id number] Take one Univers ne-tenofovi 02-01-04 po daily ity of r alafen 00:00: 00:00 [place] (DESCOVY) 00 :00 Medical tablet Branch emtricitabi 2021-0 3- No [id number] Take one Univers ne-arianofovi 02-01- po daily ity of r alafen 00:00: 00:00 [place] (DESCOVY) 00 :00 Medical tablet Branch naproxen 2021-0 Yes [id number] 500mg Take 1 U nivers (NAPROSYN) 7-24 tablet by ity of 500 mg 00:00: mouth in [place] tablet 00 the Medical morning Branch and 1 tablet in the evening. Take with meals. methocarbam 2021-0 Yes [id number] 500mg Take 1 Univers oL 500 mg 7-24 tablet by ity o f tablet 00:00: mouth 4 [place] ([facility]) Medical times [place] daily. naproxen 2021-0 Yes [id number] 500mg Take 1 U nivers (NAPROSYN) 7-24 tablet by ity of 500 mg 00:00: mouth in [place] tablet 00 the Medical morning Branch and 1 tablet in the evening. Take with meals. methocarbam 2021-0 Yes [id number] 500mg Take 1 Univers oL 500 mg 7-24 tablet by ity o f tablet 00:00: mouth 4 [place] ([facility]) Medical times Branch daily. naproxen 2-0 Yes [id number] 500mg Take 1 U nivers (NAPROSYN) 7-24 tablet by ity of 500 mg 00:00: mouth in [place] tablet 00 the Medical morning Branch and 1 tablet in the evening. Take with meals. methocarbam 2022-0 Yes [id number] 500mg Take 1 Univers oL 500 mg 7-24 tablet by ity o f tablet 00:00: mouth 4 [place] ([facility]) Medical times Branch daily. naproxen 2-0 2022- No [id number] 500mg Take 1 Univers (NAPROSYN) 7-24 10-14 tablet by ity of 500 mg 00:00: 00:00 mouth in [place] tablet 00 :00 the Medical morning Branch and 1 tablet in the evening. Take with meals. methocarbam 2021- No [id number] 500mg Take 1 Univers oL 500 mg 12-13 tablet by ity of tablet 00:00: 00:00 mouth 4 [place] 00 :00 (four) Medical times Branch daily. naproxen 2021- No [id number] 500mg Take 1 Univers (NAPROSYN) 12-13 tablet by ity of 500 mg 00:00: 00:00 mouth in [place] tablet 00 :00 the Medical morning Branch and 1 tablet in the evening. Take with meals. methocarbam 2021- No [id number] 500mg Take 1 Univers oL 500 mg 12-13 tablet by ity of tablet 00:00: 00:00 mouth 4 [place] 00 :00 (four) Medical times Branch daily. esomeprazol 2021- No 40mg Take 40 mg Univers e (NEXIUM) 11-20 by mouth 2 it y of 40 mg 09:12: 00:00 (two) [place] capsule 03 :00 times Medical daily. Branch amiodarone No 100mg Take 100 U nivers 100 mg 11-20 mg by ity of tablet 09:11: 00:00 mouth [place] 57 :00 daily. Medical Branch apixaban No 5mg Take 5 mg Uni vers (ELIQUIS) 5 11-20 by mouth 2 i ty of mg tablet 09:11: 00:00 (two) [place] 35 :00 times Medical daily. Branch traZODONE 2021- No Take by [facility] ers (DESYREL) 11-20 mouth at ity o f 10 mg/mL 09:10: 00:00 bedtime. [place] oral 28 :00 Medical suspension Branch hydralAZINE Yes 25mg Take 25 mg Univers (APRESOLINE 11-20 by mouth ity of ) 25 mg 08:47: daily. [place] tablet 47 Medical Branch cephALEXin 2021- No [id number] 500mg Take 1 Univers (KEFLEX) 10-24 capsule [...] 7-10). Indication s: acute pain buPROPion Yes [id number] 150mg Take 1 U nivers XL 4-12 tablet by ity of (WELLBUTRIN 00:00: mouth [place] XL) 150 mg 00 daily. Medical 24 hr Branch tablet busPIRone Yes [id number] 30mg Take 1 Un matt 30 mg 4-12 tablet by ity of tablet 00:00: mouth 2 [place] 00 (two) Medical times Branch daily. SERTraline Yes [id number] 200mg Take 2 Univers 100 mg 4-12 tablets by ity of tablet 00:00: mouth [place] 00 daily. Medical Branch buPROPion Yes [id number] 150mg Take 1 U nivers XL 4-12 tablet by ity of (WELLBUTRIN 00:00: mouth [place] XL) 150 mg 00 daily. Medical 24 hr Branch tablet busPIRone 2021-0 Yes [id number] 30mg Take 1 Un matt 30 mg 4-12 tablet by ity of tablet 00:00: mouth 2 [place] 00 (two) Medical times Branch daily. SERTraline 2021-0 Yes [id number] 200mg Take 2 Univers 100 mg 4-12 tablets by ity of tablet 00:00: mouth [place] 00 daily. Medical Branch buPROPion 2021-0 Yes [id number] 150mg Take 1 U nivers XL 4-12 tablet by ity of (WELLBUTRIN 00:00: mouth [place] XL) 150 mg 00 daily. Medical 24 hr Branch tablet busPIRone 2021-0 Yes [id number] 30mg Take 1 Un matt 30 mg 4-12 tablet by ity of tablet 00:00: mouth 2 [place] 00 (two) Medical times Branch daily. SERTraline 2021-0 Yes [id number] 200mg Take 2 Univers 100 mg 4-12 tablets by ity of tablet 00:00: mouth [place] 00 daily. Medical Branch buPROPion 2021-0 Yes [id number] 150mg Take 1 U nivers XL 4-12 tablet by ity of (WELLBUTRIN 00:00: mouth [place] XL) 150 mg 00 daily. Medical 24 hr Branch tablet busPIRone 2021-0 Yes [id number] 30mg Take 1 Un matt 30 mg 4-12 tablet by ity of tablet 00:00: mouth 2 [place] 00 (two) Medical times Branch daily. SERTraline 2021-0 Yes [id number] 200mg Take 2 Univers 100 mg 4-12 tablets by ity of tablet 00:00: mouth [place] 00 daily. Medical Branch buPROPion 2021-0 Yes [id number] 150mg Take 1 U nivers XL 4-12 tablet by ity of (WELLBUTRIN 00:00: mouth [place] XL) 150 mg 00 daily. Medical 24 hr Branch tablet busPIRone 2021-0 Yes [id number] 30mg Take 1 Un matt 30 mg 4-12 tablet by ity of tablet 00:00: mouth 2 [place] 00 (two) Medical times Branch daily. SERTraline 2021-0 Yes [id number] 200mg Take 2 Univers 100 mg 4-12 tablets by ity of tablet 00:00: mouth [place] 00 daily. Medical Branch buPROPion 2021-0 Yes [id number] 150mg Take 1 U nivers XL 4-12 tablet by ity of (WELLBUTRIN 00:00: mouth [place] XL) 150 mg 00 daily. Medical 24 hr Branch tablet busPIRone 2021-0 Yes [id number] 30mg Take 1 Un matt 30 mg 4-12 tablet by ity of tablet 00:00: mouth 2 [place] 00 (two) Medical times Branch daily. SERTraline 2021-0 Yes [id number] 200mg Take 2 Univers 100 mg 4-12 tablets by ity of tablet 00:00: mouth [place] 00 daily. Medical Branch buPROPion 2021-0 Yes [id number] 150mg Take 1 U nivers XL 4-12 tablet by ity of (WELLBUTRIN 00:00: mouth [place] XL) 150 mg 00 daily. Medical 24 hr Branch tablet busPIRone 2021-0 Yes [id number] 30mg Take 1 Un matt 30 mg 4-12 tablet by ity of tablet 00:00: mouth 2 [place] 00 (two) Medical times Branch daily. SERTraline 2021-0 Yes [id number] 200mg Take 2 Univers 100 mg 4-12 tablets by ity of tablet 00:00: mouth [place] 00 daily. Medical Branch buPROPion 2021-0 Yes [id number] 150mg Take 1 U nivers XL 4-12 tablet by ity of (WELLBUTRIN 00:00: mouth [place] XL) 150 mg 00 daily. Medical 24 hr Branch tablet busPIRone 2021-0 Yes [id number] 30mg Take 1 Un matt 30 mg 4-12 tablet by ity of tablet 00:00: mouth 2 [place] 00 (two) Medical times Branch daily. SERTraline 2021-0 Yes [id number] 200mg Take 2 Univers 100 mg 4-12 tablets by ity of tablet 00:00: mouth [place] 00 daily. Medical Branch buPROPion 2021-0 Yes [id number] 150mg Take 1 U nivers XL 4-12 tablet by ity of (WELLBUTRIN 00:00: mouth [place] XL) 150 mg 00 daily. Medical 24 hr Branch tablet busPIRone 2021-0 Yes [id number] 30mg Take 1 Un matt 30 mg 4-12 tablet by ity of tablet 00:00: mouth 2 [place] 00 (two) Medical times Branch daily. SERTraline 2021-0 Yes [id number] 200mg Take 2 Univers 100 mg 4-12 tablets by ity of tablet 00:00: mouth [place] 00 daily. Medical Branch buPROPion 2021-0 Yes [id number] 150mg Take 1 U nivers XL 4-12 tablet by ity of (WELLBUTRIN 00:00: mouth [place] XL) 150 mg 00 daily. Medical 24 hr Branch tablet busPIRone 2021-0 Yes [id number] 30mg Take 1 Un matt 30 mg 4-12 tablet by ity of tablet 00:00: mouth 2 [place] 00 (two) Medical times Branch daily. SERTraline 2021-0 Yes [id number] 200mg Take 2 Univers 100 mg 4-12 tablets by ity of tablet 00:00: mouth [place] 00 daily. Medical Branch buPROPion 2021-0 Yes [id number] 150mg Take 1 U nivers XL 4-12 tablet by ity of (WELLBUTRIN 00:00: mouth [place] XL) 150 mg 00 daily. Medical 24 hr Branch tablet busPIRone 2021-0 Yes [id number] 30mg Take 1 Un matt 30 mg 4-12 tablet by ity of tablet 00:00: mouth 2 [place] 00 (two) Medical times Branch daily. SERTraline 2021-0 Yes [id number] 200mg Take 2 Univers 100 mg 4-12 tablets by ity of tablet 00:00: mouth [place] 00 daily. Medical Branch buPROPion 2021-0 Yes [id number] 150mg Take 1 U nivers XL 4-12 tablet by ity of (WELLBUTRIN 00:00: mouth [place] XL) 150 mg 00 daily. Medical 24 hr Branch tablet busPIRone 2021-0 Yes [id number] 30mg Take 1 Un matt 30 mg 4-12 tablet by ity of tablet 00:00: mouth 2 [place] 00 (two) Medical times Branch daily. SERTraline 2021-0 Yes [id number] 200mg Take 2 Univers 100 mg 4-12 tablets by ity of tablet 00:00: mouth [place] 00 daily. Medical Branch buPROPion 2021-0 Yes [id number] 150mg Take 1 U nivers XL 4-12 tablet by ity of (WELLBUTRIN 00:00: mouth [place] XL) 150 mg 00 daily. Medical 24 hr Branch tablet busPIRone 2021-0 Yes [id number] 30mg Take 1 Un matt 30 mg 4-12 tablet by ity of tablet 00:00: mouth 2 [place] 00 (two) Medical times Branch daily. SERTraline 2021-0 Yes [id number] 200mg Take 2 Univers 100 mg 4-12 tablets by ity of tablet 00:00: mouth [place] 00 daily. Medical Branch buPROPion 2021-0 Yes [id number] 150mg Take 1 U nivers XL 4-12 tablet by ity of (WELLBUTRIN 00:00: mouth [place] XL) 150 mg 00 daily. Medical 24 hr Branch tablet busPIRone 2021-0 Yes [id number] 30mg Take 1 Un matt 30 mg 4-12 tablet by ity of tablet 00:00: mouth 2 [place] 00 (two) Medical times Branch daily. SERTraline 2021-0 Yes [id number] 200mg Take 2 Univers 100 mg 4-12 tablets by ity of tablet 00:00: mouth [place] 00 daily. Medical Branch buPROPion 2021-0 Yes [id number] 150mg Take 1 U nivers XL 4-12 tablet by ity of (WELLBUTRIN 00:00: mouth [place] XL) 150 mg 00 daily. Medical 24 hr Branch tablet busPIRone 2021-0 Yes [id number] 30mg Take 1 Un matt 30 mg 4-12 tablet by ity of tablet 00:00: mouth 2 00 (two) Medical times Branch daily. SERTraline 2021-0 Yes [id number] 200mg Take 2 Univers 100 mg 4-12 tablets by ity of tablet 00:00: mouth [place] 00 daily. Medical Branch buPROPion 2021-0 Yes [id number] 150mg Take 1 U nivers XL 4-12 tablet by ity of (WELLBUTRIN 00:00: mouth [place] XL) 150 mg 00 daily. Medical 24 hr Branch tablet busPIRone 2021-0 Yes [id number] 30mg Take 1 Un matt 30 mg 4-12 tablet by ity of tablet 00:00: mouth 2 (two) Medical times Branch daily. SERTraline 2021-0 Yes [id number] 200mg Take 2 Univers 100 mg 4-12 tablets by ity of tablet 00:00: mouth [place] 00 daily. Medical Branch buPROPion 2021-0 Yes [id number] 150mg Take 1 U nivers XL 4-12 tablet by ity of (WELLBUTRIN 00:00: mouth [place] XL) 150 mg 00 daily. Medical 24 hr Branch tablet busPIRone 2021-0 Yes [id number] 30mg Take 1 Un matt 30 mg 4-12 tablet by ity of tablet 00:00: mouth 2 (two) Medical times Branch daily. SERTraline 2021-0 Yes [id number] 200mg Take 2 Univers 100 mg 4-12 tablets by ity of tablet 00:00: mouth [place] 00 daily. Medical Branch buPROPion 2021-0 Yes [id number] 150mg Take 1 U nivers XL 4-12 tablet by ity of (WELLBUTRIN 00:00: mouth [place] XL) 150 mg 00 daily. Medical 24 hr Branch tablet busPIRone 2021-0 Yes [id number] 30mg Take 1 Un matt 30 mg 4-12 tablet by ity of tablet 00:00: mouth 2 (two) Medical times Branch daily. SERTraline 2021-0 Yes [id number] 200mg Take 2 Univers 100 mg 4-12 tablets by ity of tablet 00:00: mouth [place] 00 daily. Medical Branch buPROPion 2021-0 Yes [id number] 150mg Take 1 U nivers XL 4-12 tablet by ity of (WELLBUTRIN 00:00: mouth [place] XL) 150 mg 00 daily. Medical 24 hr Branch tablet busPIRone 2021-0 Yes [id number] 30mg Take 1 Un matt 30 mg 4-12 tablet by ity of tablet 00:00: mouth 2 [place] 00 (two) Medical times Branch daily. SERTraline 2021-0 Yes [id number] 200mg Take 2 Univers 100 mg 4-12 tablets by ity of tablet 00:00: mouth [place] 00 daily. Medical Branch buPROPion 2021-0 Yes [id number] 150mg Take 1 U nivers XL 4-12 tablet by ity of (WELLBUTRIN 00:00: mouth [place] XL) 150 mg 00 daily. Medical 24 hr Branch tablet busPIRone 2021-0 Yes [id number] 30mg Take 1 Un matt 30 mg 4-12 tablet by ity of tablet 00:00: mouth 2 [place] 00 (two) Medical times Branch daily. SERTraline 2021-0 Yes [id number] 200mg Take 2 Univers 100 mg 4-12 tablets by ity of tablet 00:00: mouth [place] 00 daily. Medical Branch buPROPion 2021-0 Yes [id number] 150mg Take 1 U nivers XL 4-12 tablet by ity of (WELLBUTRIN 00:00: mouth [place] XL) 150 mg 00 daily. Medical 24 hr Branch tablet busPIRone 2021-0 Yes [id number] 30mg Take 1 Un matt 30 mg 4-12 tablet by ity of tablet 00:00: mouth 2 [place] 00 (two) Medical times Branch daily. SERTraline 2021-0 Yes [id number] 200mg Take 2 Univers 100 mg 4-12 tablets by ity of tablet 00:00: mouth [place] 00 daily. Medical Branch buPROPion 2021-0 Yes [id number] 150mg Take 1 U nivers XL 4-12 tablet by ity of (WELLBUTRIN 00:00: mouth [place] XL) 150 mg 00 daily. Medical 24 hr Branch tablet busPIRone 2021-0 Yes [id number] 30mg Take 1 Un matt 30 mg 4-12 tablet by ity of tablet 00:00: mouth 2 [place] 00 (two) Medical times Branch daily. SERTraline 2021-0 Yes [id number] 200mg Take 2 Univers 100 mg 4-12 tablets by ity of tablet 00:00: mouth [place] 00 daily. Medical Branch raltegravir 2021-0 Yes [id number] 400mg Take 1 Univers (ISENTRESS) 3-28 tablet by ity of 400 mg 00:00: mouth 2 [place] tablet 00 (two) Medical times Branch daily. raltegravir 2021-0 Yes [id number] 400mg Take 1 Univers (ISENTRESS) 3-28 tablet by ity of 400 mg 00:00: mouth 2 [place] tablet 00 (two) Medical times Branch daily. raltegravir 2021-0 Yes [id number] 400mg Take 1 Univers (ISENTRESS) 3-28 tablet by ity of 400 mg 00:00: mouth 2 [place] tablet 00 (two) Medical times Branch daily. raltegravir 2021-0 Yes [id number] 400mg Take 1 Univers (ISENTRESS) 3-28 tablet by ity of 400 mg 00:00: mouth 2 [place] tablet 00 (two) Medical times Branch daily. raltegravir 2021-0 Yes [id number] 400mg Take 1 [facility] (ISENTRESS) 3-28 tablet by ity of 400 mg 00:00: mouth 2 [place] tablet 00 (two) Medical times Branch daily. raltegravir 2021-0 Yes [id number] 400mg Take 1 [facility] (ISENTRESS) 3-28 tablet by ity of 400 mg 00:00: mouth 2 [place] tablet 00 (two) Medical times Branch daily. raltegravir 2021-0 Yes [id number] 400mg Take 1 [facility] (ISENTRESS) 3-28 tablet by ity of 400 mg 00:00: mouth 2 [place] tablet 00 (two) Medical times Branch daily. raltegravir 2021-0 Yes [id number] 400mg Take 1 [facility] (ISENTRESS) 3-28 tablet by ity of 400 mg 00:00: mouth 2 [place] tablet 00 (two) Medical times Branch daily. raltegravir 2021-0 Yes [id number] 400mg Take 1 [facility] (ISENTRESS) 3-28 tablet by ity of 400 mg 00:00: mouth 2 [place] tablet 00 (two) Medical times Branch daily. raltegravir 2022-0 Yes [id number] 400mg Take 1 [facility] (ISENTRESS) 3-28 tablet by ity of 400 mg 00:00: mouth 2 [place] tablet 00 (two) Medical times Branch daily. raltegravir 2022-0 Yes [id number] 400mg Take 1 [facility] (ISENTRESS) 3-28 tablet by ity of 400 mg 00:00: mouth 2 [place] tablet 00 (two) Medical times Branch daily. raltegravir 2022-0 Yes [id number] 400mg Take 1 [facility] (ISENTRESS) 3-28 tablet by ity of 400 mg 00:00: mouth 2 [place] tablet 00 (two) Medical times Branch daily. raltegravir 2022-0 Yes [id number] 400mg Take 1 [facility] (ISENTRESS) 3-28 tablet by ity of 400 mg 00:00: mouth 2 [place] tablet 00 (two) Medical times Branch daily. raltegravir 2-0 Yes [id number] 400mg Take 1 [facility] (ISENTRESS) 3-28 tablet by ity of 400 mg 00:00: mouth 2 [place] tablet 00 (two) Medical times Branch daily. raltegravir 2022-0 Yes [id number] 400mg Take 1 [facility] (ISENTRESS) 3-28 tablet by ity of 400 mg 00:00: mouth 2 [place] tablet 00 (two) Medical times Branch daily. raltegravir 2022-0 Yes [id number] 400mg Take 1 [facility] (ISENTRESS) 3-28 tablet by ity of 400 mg 00:00: mouth 2 [place] tablet 00 (two) Medical times Branch daily. raltegravir 2022-0 Yes [id number] 400mg Take 1 [facility] (ISENTRESS) 3-28 tablet by ity of 400 mg 00:00: mouth 2 [place] tablet 00 (two) Medical times Branch daily. raltegravir 2022-0 Yes [id number] 400mg Take 1 [facility] (ISENTRESS) 3-28 tablet by ity of 400 mg 00:00: mouth 2 [place] tablet 00 (two) Medical times Branch daily. raltegravir 2022-0 Yes [id number] 400mg Take 1 [facility] (ISENTRESS) 3-28 tablet by ity of 400 mg 00:00: mouth 2 [place] tablet 00 (two) Medical times Branch daily. raltegravir Yes [id number] 400mg Take 1 [facility] (ISENTRESS) 3-28 tablet by ity of 400 mg 00:00: mouth 2 [place] tablet 00 (two) Medical times Branch daily. raltegravir 2022- No [id number] 400mg Take 1 [facility] (ISENTRESS) 3-28 05-08 tablet by it y of 400 mg 00:00: 00:00 mouth 2 [place] tablet 00 :00 (two) Medical times Branch daily. LORazepam 1 2021- No [id number] 1mg Take 1 [facility] mg tablet 3-10 [...] times a tablet day. emtricitabi 2021- No [id number] Take one [facility] ne-tenofovi 1-20 09-12 po daily ity of r alafen 00:00: 00:00 [place] (DESCOVY) 00 :00 Medical tablet Branch metoprolol Yes [id number] Take 1 [facility] tartrate 7-26 tablet [facility] (Lopressor) 00:00: (100 mg 100 MG 00 total) by tablet mouth 2 (two) times a day AND 0.5 tablets (50 mg total) every night. metoprolol Yes [id number] Take 1 [facility] tartrate 7-[facility] [...] (affected area in groin) hydrALAZINE Yes 50mg Q.[id number] Take 50 mg [facility] (APRESOLINE 7-19 [id number] by mouth 3 [facility] ) 50 MG [...] (affected area in groin) hydrALAZINE Yes 50mg Q.[id number] Take 50 mg [facility] (APRESOLINE 7-19 [id number] by mouth 3 st ) 50 MG [...] area in groin) hydrALAZINE 2021-0 Yes 50mg Q.[id number] Take 50 mg [facility] (APRESOLINE 7-19 [id number] [address] mouth 3 [facility] ) 50 MG [...] (affected area in groin) hydrALAZINE Yes 50mg Q.[id number] Take 50 mg [facility] (APRESOLINE 7-19 [id number] [address] mouth 3 st ) 50 MG [...] (affected area in groin) hydrALAZINE Yes 50mg Q.[id number] Take 50 mg [facility] (APRESOLINE 7-19 [id number] mouth 3 [address] ) 50 MG [...] area in groin) hydrALAZINE 0 Yes 50mg Q.[id number] Take 50 mg [facility] (APRESOLINE 7-19 [id number] [address] mouth 3 st ) 50 MG [...] (affected area in groin) hydrALAZINE Yes 50mg Q.15664912 Take 50 mg [facility] (APRESOLINE 7-19 [id number] mouth 3 [address] ) 50 MG [...] (affected area in groin) hydrALAZINE Yes 50mg Q.[id number] Take 50 mg [facility] (APRESOLINE 7-[address] [id number] mouth 3 [address] ) 50 MG [...] area in groin) hydrALAZINE 0 Yes 50mg Q.36125979 Take 50 mg [facility] (APRESOLINE 7-19 [id number] mouth 3 [address] ) 50 MG [...] area in groin) hydrALAZINE 0 Yes 50mg Q.[id number] Take 50 mg [facility] (APRESOLINE 7-19 [id number] [address] mouth 3 [address] ) 50 MG [...] (affected area in groin) hydrALAZINE Yes 50mg Q.[id number] Take 50 mg [facility] (APRESOLINE - [id number] by mouth 3 st ) 50 MG [...] area in groin) hydrALAZINE 0 Yes 50mg Q.[id number] Take 50 mg [facility] (APRESOLINE -19 [id number] [address] mouth 3 [facility] ) 50 MG [...] area in groin) hydrALAZINE 2020-0 Yes 50mg Q.[id number] Take 50 mg [facility] (APRESOLINE 7-19 [id number] [address] mouth 3 st ) 50 MG [...] (affected area in groin) hydrALAZINE Yes 50mg Q.[id number] Take 50 mg [facility] (APRESOLINE -19 [id number] [address] mouth 3 [address] ) 50 MG [...] area in groin) hydrALAZINE 0 Yes 50mg Q.[id number] Take 50 mg [facility] (APRESOLINE 7-19 [id number] [address] mouth 3 [address] ) 50 MG [...] area in groin) hydrALAZINE 2020-0 Yes 50mg Q.[id number] Take 50 mg [facility] (APRESOLINE 7-19 [id number] [address] mouth 3 [facility] ) 50 MG [...] area in groin) hydrALAZINE 0 Yes 50mg Q.[id number] Take 50 mg [facility] (APRESOLINE 7-19 [id number] [address] mouth 3 [address] ) 50 MG [...] (affected area in groin) hydrALAZINE Yes 50mg Q.14831314 Take 50 mg [facility] (APRESOLINE 7-19 [id number] by mouth 3 st ) 50 MG [...] area in groin) hydrALAZINE 2020-0 Yes 50mg Q.[id number] Take 50 mg [facility] (APRESOLINE -19 [id number] [address] mouth 3 [address] ) 50 MG [...] area in groin) hydrALAZINE 0 Yes 50mg Q.[id number] Take 50 mg [facility] (APRESOLINE 7-19 [id number] mouth 3 [address] ) 50 MG [...] (affected area in groin) hydrALAZINE Yes 50mg Q.03468987 Take 50 mg [facility] (APRESOLINE 7-[id number] mouth 3 [address] ) 50 MG [...] area in groin) hydrALAZINE 0 Yes 50mg Q.[id number] Take 50 mg [facility] (APRESOLINE -19 [id number] [address] mouth 3 [address] ) 50 MG [...] area in groin) hydrALAZINE 0 Yes 50mg Q.88382332 Take 50 mg [facility] (APRESOLINE 7-19 [id number] mouth 3 [address] ) 50 MG [...] (affected area in groin) hydrALAZINE Yes 50mg Q.[id number] Take 50 mg [facility] (APRESOLINE 7-19 [id number] [address] mouth 3 [address] ) 50 MG [...] area in groin) hydrALAZINE 0 Yes 50mg Q.77636871 Take 50 mg [facility] (APRESOLINE 7-19 [id number] [address] mouth 3 [address] ) 50 MG [...] area in groin) hydrALAZINE 2020-0 Yes 50mg Q.20635385 Take 50 mg [facility] (APRESOLINE 7-19 [id number] [address] mouth 3 [address] ) 50 MG [...] area in groin) hydrALAZINE 0 Yes 50mg Q.66885974 Take 50 mg [facility] (APRESOLINE 7-19 [id number] [address] mouth 3 [address] ) 50 MG [...] (affected area in groin) hydrALAZINE Yes 50mg Q.[id number] Take 50 mg [facility] (APRESOLINE - [id number] by mouth 3 st ) 50 MG [...] area in groin) hydrALAZINE 0 Yes 50mg Q.[id number] Take 50 mg [facility] (APRESOLINE 7-19 [id number] [address] mouth 3 [address] ) 50 MG [...] area in groin) hydrALAZINE 2020-0 Yes 50mg Q.19854380 Take 50 mg [facility] (APRESOLINE 7-19 [id number] mouth 3 [address] ) 50 MG [...] (affected area in groin) hydrALAZINE Yes 50mg Q.[id number] Take 50 mg [facility] (APRESOLINE 7-19 [id number] by mouth 3 [address] ) 50 MG [...] area in groin) hydrALAZINE 0 Yes 50mg Q.32504635 Take 50 mg [facility] (APRESOLINE 7-19 [id number] mouth 3 [address] ) 50 MG [...] area in groin) hydrALAZINE 0 Yes 50mg Q.00203731 Take 50 mg [facility] (APRESOLINE 7-[id number] mouth 3 [address] ) 50 MG [...] (affected area in groin) hydrALAZINE Yes 50mg Q.84038805 Take 50 mg [facility] (APRESOLINE 7-[id number] mouth 3 [address] ) 50 MG [...] (affected area in groin) hydrALAZINE Yes 50mg Q.75492950 Take 50 mg [facility] (APRESOLINE 7-19 [address]32[address] mouth 3 [address] ) 50 MG [...] area in groin) hydrALAZINE 0 Yes 50mg Q.06074798 Take 50 mg [facility] (APRESOLINE 7-19 [id number] [address] mouth 3 [address] ) 50 MG [...] area in groin) hydrALAZINE 0 Yes 50mg Q.10058076 Take 50 mg [facility] (APRESOLINE 7-19 [id number] mouth 3 [address] ) 50 MG [...] (affected area in groin) hydrALAZINE Yes 50mg Q.56752406 Take 50 mg [facility] (APRESOLINE 7-19 [id number] [address] mouth 3 [address] ) 50 MG [...] area in groin) hydrALAZINE 2020-0 Yes 50mg Q.[id number] Take 50 mg [facility] (APRESOLINE 7-19 [id number] mouth 3 [address] ) 50 MG [...] area in groin) hydrALAZINE 0 Yes 50mg Q.70301595 Take 50 mg [facility] (APRESOLINE 7-19 [id number] mouth 3 [address] ) 50 MG [...] (affected area in groin) hydrALAZINE Yes 50mg Q.[id number] Take 50 mg [facility] (APRESOLINE 7-19 [id number] mouth 3 [address] ) 50 MG [...] area in groin) hydrALAZINE 0 Yes 50mg Q.[id number] Take 50 mg [facility] (APRESOLINE 7-[id number] mouth 3 [address] ) 50 MG [...] area in groin) hydrALAZINE 0 Yes 50mg Q.[id number] Take 50 mg [facility] (APRESOLINE 7-19 [id number] mouth 3 [address] ) 50 MG [...] (affected area in groin) hydrALAZINE Yes 50mg Q.[id number] Take 50 mg [facility] (APRESOLINE 7-19 [id number] mouth 3 [address] ) 50 MG [...] area in groin) hydrALAZINE 0 Yes 50mg Q.[id number] Take 50 mg [facility] (APRESOLINE 7-[id number] mouth 3 [address] ) 50 MG [...] area in groin) hydrALAZINE 0 Yes 50mg Q.70812116 Take 50 mg [facility] (APRESOLINE 7-19 [id number] mouth 3 [address] ) 50 MG [...] area in groin) hydrALAZINE 0 Yes 50mg Q.[id number] Take 50 mg [facility] (APRESOLINE 7-19 [id number] mouth 3 [address] ) 50 MG [...] (affected area in groin) hydrALAZINE Yes 50mg Q.[id number] Take 50 mg [facility] (APRESOLINE 7-[id number] mouth 3 [address] ) 50 MG [...] area in groin) hydrALAZINE 0 Yes 50mg Q.[id number] Take 50 mg [facility] (APRESOLINE 7-[address] mouth 3 [address] ) 50 MG [...] area in groin) hydrALAZINE 0 Yes 50mg Q.[id number] Take 50 mg [facility] (APRESOLINE 7-[id number] mouth 3 [address] ) 50 MG [...] (affected area in groin) hydrALAZINE Yes 50mg Q.[id number] Take 50 mg [facility] (APRESOLINE 7-[id number] mouth 3 [address] ) 50 MG [...] area in groin) hydrALAZINE 0 Yes 50mg Q.13333211 Take 50 mg [facility] (APRESOLINE 7-[address] mouth 3 [address] ) 50 MG [...] (affected area in groin) hydrALAZINE Yes 50mg Q.[id number] Take 50 mg [facility] (APRESOLINE 7-[id number] mouth 3 [address] ) 50 MG [...] (affected area in groin) hydrALAZINE Yes 50mg Q.[id number] Take 50 mg [facility] (APRESOLINE 7-19 [id number] mouth 3 [address] ) 50 MG [...] area in groin) hydrALAZINE 0 Yes 50mg Q.[id number] Take 50 mg [facility] (APRESOLINE 7-[id number] mouth 3 [address] ) 50 MG [...] area in groin) hydrALAZINE 0 Yes 50mg Q.[id number] Take 50 mg [facility] (APRESOLINE 7-19 [id number] mouth 3 [address] ) 50 MG [...] (affected area in groin) hydrALAZINE Yes 50mg Q.[id number] Take 50 mg [facility] (APRESOLINE 7-[id number] mouth 3 [address] ) 50 MG [...] (affected area in groin) hydrALAZINE Yes 50mg Q.[id number] Take 50 mg [facility] (APRESOLINE 7-19 [id number] [address] mouth 3 [address] ) 50 MG [...] area in groin) hydrALAZINE 0 Yes 50mg Q.[id number] Take 50 mg [facility] (APRESOLINE 7-[id number] mouth 3 [address] ) 50 MG [...] (affected area in groin) hydrALAZINE Yes 50mg Q.[id number] Take 50 mg [facility] (APRESOLINE 7-[id number] mouth 3 [address] ) 50 MG [...] (affected area in groin) hydrALAZINE Yes 50mg Q.[id number] Take 50 mg [facility] (APRESOLINE 7-[id number] mouth 3 [address] ) 50 MG [...] area in groin) hydrALAZINE 0 Yes 50mg Q.[id number] Take 50 mg [facility] (APRESOLINE 7-19 [id number] by mouth 3 [address] ) 50 MG [...] [facility] tablet 25 l nystatin-tr 0 Yes [id number] Apply to [facility] 11-25 area(s) 3 ity of cream 00:00: (three) [place] 00 times Medical daily. Branch nystatin-tr 2020-0 Yes [id number] Apply to [facility] 7- area(s) 3 ity of cream 00:00: (three) [place] 00 times Medical daily. Branch nystatin-tr 2021-0 Yes [id number] Apply to [facility] iamcinolone 7-06 area(s) 3 ity of cream 00:00: (three) [place] 00 times Medical daily. Branch nystatin-tr 2021-0 Yes [id number] Apply to [facility] iamcinolone 7-06 area(s) 3 ity of cream 00:00: (three) [place] 00 times Medical daily. Branch nystatin-tr 2021-0 Yes [id number] Apply to [facility] iamcinolone 7-06 area(s) 3 ity of cream 00:00: (three) [place] 00 times Medical daily. Branch nystatin-tr 2021-0 Yes [id number] Apply to [facility] iamcinolone 7-06 area(s) 3 ity of cream 00:00: (three) [place] 00 times Medical daily. Branch nystatin-tr 2021-0 Yes [id number] Apply to [facility] iamcinolone 7-06 area(s) 3 ity of cream 00:00: (three) [place] 00 times Medical daily. Branch nystatin-tr 2021-0 Yes [id number] Apply to [facility] iamcinolone 7-06 area(s) 3 ity of cream 00:00: (three) [place] 00 times Medical daily. Branch nystatin-tr 2021-0 Yes [id number] Apply to [facility] iamcinolone 7-06 area(s) 3 ity of cream 00:00: (three) [place] 00 times Medical daily. Branch nystatin-tr 2021-0 Yes [id number] Apply to [facility] iamcinolone 7-06 area(s) 3 ity of cream 00:00: (three) [place] 00 times Medical daily. Branch nystatin-tr 2021-0 Yes [id number] Apply to [facility] iamcinolone 7-06 area(s) 3 ity of cream 00:00: (three) [place] 00 times Medical daily. Branch nystatin-tr 2021-0 Yes [id number] Apply to [facility] iamcinolone 7-06 area(s) 3 ity of cream 00:00: (three) [place] 00 times Medical daily. Branch nystatin-tr 2021-0 Yes [id number] Apply to [facility] iamcinolone 7-06 area(s) 3 ity of cream 00:00: (three) [place] 00 times Medical daily. Branch nystatin-tr 2021-0 Yes [id number] Apply to [facility] iamcinolone 7-06 area(s) 3 ity of cream 00:00: (three) [place] 00 times Medical daily. Branch nystatin-tr 1-0 Yes [id number] Apply to [facility] iamcinolone 7-06 area(s) 3 ity of cream 00:00: (three) [place] 00 times Medical daily. Branch nystatin-tr 1-0 Yes [id number] Apply to [facility] iamcinolone 7-06 area(s) 3 ity of cream 00:00: (three) [place] 00 times Medical daily. Branch nystatin-tr 1-0 Yes [id number] Apply to [facility] iamcinolone 7-06 area(s) 3 ity of cream 00:00: (three) [place] 00 times Medical daily. Branch nystatin-tr 1-0 Yes [id number] Apply to [facility] iamcinolone 7-06 area(s) 3 ity of cream 00:00: (three) [place] 00 times Medical daily. Branch nystatin-tr 1-0 Yes [id number] Apply to [facility] iamcinolone 7-06 area(s) 3 ity of cream 00:00: (three) [place] 00 times Medical daily. Branch nystatin-tr 1-0 Yes [id number] Apply to [facility] iamcinolone 7-06 area(s) 3 ity of cream 00:00: (three) [place] 00 times Medical daily. Branch nystatin-tr 1-0 Yes [id number] Apply to [facility] iamcinolone 7-06 area(s) 3 ity of cream 00:00: (three) [place] 00 times Medical daily. Branch nystatin-tr 1-0 Yes [id number] Apply to [facility] iamcinolone 7-06 area(s) 3 ity of cream 00:00: (three) [place] 00 times Medical daily. Branch budesonide- 2020-0 2021- No 1{puff} QD Inhale 1 [facility] formoteroL 6-25 06-[address] (SYMBICORT) 14:37: 00:00 morning. H ospita 160-4.5 02 :00 l mcg/actuati on inhaler hydrALAZINE 2020-0 Yes [id number] 50mg Q.[id number] Take 1 [facility] (Apresoline 6-11 [id number] tablet (50 Health ) 50 MG 00:00: 3D mg total) tablet 00 by mouth 3 (three) times a day. hydrALAZINE 0 Yes [id number] 50mg Q.[id number] Take 1 [facility] (Apresoline 10-31 [id number] tablet (50 Health ) 50 MG 00:00: [...] 00:00: ointment 00 nystatin 0 2020- No [id number] Q.25D Take 5 mL [facility] (MYCOSTATIN 17 [...] 4-10 (Same as: l 14:00: Norvasc) [place] emtricitabi No Notes: Caesar lisa ne 200 MG / 4-10 (Same as: l tenofovir 14:00: Descovy) Herm ariel alafenamide 00 Non-formul 25 MG Oral nancy Tablet [Descovy] Sertraline No Notes: Memor ia 4-10 (Same as: l 14:00: Zoloft) [place] 00 Sertraline No Notes: Memor ia 4-10 (Same as: l 14:00: Zoloft) [place] 00 pantoprazol No Notes: [place] lisa e 4-10 Tablet l 14:00: should not [place] 00 be chewed or crushed. (Same as: Protonix) Amiodarone No Notes: Memor ia 4-10 (Same as: l 14:00: Cordarone) [place] 00 Amlodipine No Notes: Memor ia 4-10 (Same as: l 14:00: Norvasc) [place] emtricitabi No Notes: Caesar lisa ne 200 MG / 4-10 (Same as: l tenofovir 14:00: Descovy) Herm ariel alafenamide 00 Non-formul 25 MG Oral nancy Tablet [Descovy] Sertraline No Notes: Memor ia 4-10 (Same as: l 14:00: Zoloft) [place] 00 pantoprazol No Notes: [place] lisa e 4-10 Tablet l 14:00: should not [place] 00 be chewed or crushed. (Same as: Protonix) Amiodarone No Notes: Memor ia 4-10 (Same as: l 14:00: Cordarone) [place] Amlodipine No Notes: Memor ia 4-10 (Same as: l 14:00: Norvasc) [place] emtricitabi No Notes: Caesar lisa ne 200 MG / 4-10 (Same as: l tenofovir 14:00: Descovy) Herm ariel alafenamide 00 Non-formul 25 MG Oral nancy Tablet [Descovy] Sertraline No Notes: Memor ia 4-10 (Same as: l 14:00: Zoloft) [place] pantoprazol No Notes: [place] lisa e 4-10 [...] 4-10 (Same as: l 14:00: Norvasc) [place] emtricitabi No Notes: Caesar lisa ne 200 MG / 4-10 (Same as: l tenofovir 14:00: Descovy) Herm areil alafenamide 00 Non-formul 25 MG Oral nancy Tablet [Descovy] Sertraline No Notes: Memor ia 4-10 (Same as: l 14:00: Zoloft) [place] 00 pantoprazol No Notes: [place] lisa e 4-10 Tablet l 14:00: should not [place] 00 be chewed or crushed. (Same as: Protonix) Amiodarone No Notes: Memor ia 4-10 (Same as: l 14:00: Cordarone) [place] 00 Amlodipine No Notes: Memor ia 4-10 (Same as: l 14:00: Norvasc) [place] emtricitabi No Notes: Caesar lisa ne 200 MG / 4-10 (Same as: l tenofovir 14:00: Descovy) Herm ariel alafenamide 00 Non-formul 25 MG Oral nancy Tablet [Descovy] Sertraline No Notes: Memor ia 4-10 (Same as: l 14:00: Zoloft) [place] pantoprazol No Notes: [place] lisa e 4-10 Tablet l 14:00: should not [place] 00 be chewed or crushed. (Same as: Protonix) Amiodarone No Notes: Memor ia 4-10 (Same as: l 14:00: Cordarone) [place] 00 Sucralfate No Notes: May M emoria 4-10 interfere l 02:00: w/enteral [place] feeds - Take 1 hr before or [...] 4-10 (Same as: l 02:00: BD [place] Posiflush) Eliquis No Notes: Memoria 4-10 Same [...] 4-10 (Same as: l 02:00: BD [place] 00 Posiflush) Eliquis No Notes: Memoria 4-10 Same as: l 02:00: Eliquis [place] Hydralazine No Notes: Caesar lisa Hydrochlori 4-10 (Same as: l de 50 MG 02:00: Apresoline Her mitchell Oral Tablet 00 ) May interfere w/enteral feedings Take With Food Sucralfate No Notes: May M emoria 4-10 interfere l 02:00: w/enteral [place] 00 feeds - Take 1 hr before [...] 4-10 Same as: l 02:00: Eliquis [place] Hydralazine No Notes: Caesar lisa Hydrochlori 4-10 [...] 4-10 (Same as: l 02:00: BD [place] 00 Posiflush) Eliquis No Notes: Memoria 4-10 [...] exceed l #3 00:12: 4gm/day of [place] 00 acetaminop hen. (Same as: Tylenol with [...] exceed l #3 00:12: 4gm/day of [place] 00 acetaminop hen. (Same as: Tylenol with [...] 4-09 tab, l 22:00: Route: PO, [place] Drug form: TAB, BID, Dosing Weight 97.273, [...] 4-09 tab, l 22:00: Route: PO, [place] 00 Drug form: TAB, BID, Dosing Weight [...] 4-09 tab, l 22:00: Route: PO, [place] 00 Drug form: TAB, BID, Dosing Weight 97.273, kg, Start date: 08/29/20 17:00:00 CDT, Duration: 30 day, Stop date: 09/28/20 9:00:00 CDT metoprolol No 100 mg, 1 Me moria tartrate 4-09 tab, l 22:00: Route: PO, [place] 00 Drug form: TAB, BID, Dosing Weight [...] Memoria 4-09 (Same l 17:07: as:MORPhin [place] 00 e Sulfate) Morphine No Notes: Memoria 4-09 (Same l 17:07: as:MORPhin [place] 00 e Sulfate) Morphine No Notes: [facility]oria 4-09 (Same l 17:07: as:MORPhin [place] 00 e Sulfate) Morphine No Notes: [facility]oria 4-09 (Same l 17:07: as:MORPhin [place] 00 e Sulfate) Morphine No Notes: Memoria 4-09 (Same l 17:07: as:MORPhin [place] 00 e Sulfate) Morphine No Notes: Memoria [...] PO, l oral 15:27: Daily, # [place] enteric 00 30 tab, 0 coated Refill(s), tablet Pharmacy: [facility], 162.56, cm, 08/29/20 5:30:00 CDT, Height, 97.273, kg, 08/29/20 5:30:00 CDT, Weight pantoprazol 2021-0 Yes 40 mg = 1 M emoria e 40 mg 4-09 tab, PO, l oral 15:27: Daily, # [place] enteric 00 30 tab, 0 coated Refill(s), tablet Pharmacy: [facility] 149, 162.56, cm, 08/29/20 5:30:00 CDT, Height, 97.273, kg, 08/29/20 5:30:00 CDT, Weight pantoprazol 2021-0 Yes 40 mg = 1 M emoria e 40 mg 4-09 tab, PO, l oral 15:27: Daily, # [place] enteric 00 30 tab, 0 coated Refill(s), tablet Pharmacy: [facility] 149, 162.56, cm, 08/29/20 5:30:00 CDT, Height, 97.273, kg, 08/29/20 5:30:00 CDT, Weight pantoprazol 2021-0 Yes 40 mg = 1 M emoria e 40 mg 4-09 tab, PO, l oral 15:27: Daily, # [place] enteric 00 30 tab, 0 coated Refill(s), tablet Pharmacy: [facility], 162.56, cm, 08/29/20 5:30:00 CDT, Height, 97.273, kg, 08/29/20 5:30:00 CDT, Weight pantoprazol 2021-0 Yes 40 mg = 1 M emoria e 40 mg 4-09 tab, PO, l oral 15:27: Daily, # [place] enteric 00 30 tab, 0 coated Refill(s), tablet Pharmacy: [facility], 162.56, cm, 08/29/20 5:30:00 CDT, Height, 97.273, kg, 08/29/20 5:30:00 CDT, Weight pantoprazol 1-0 Yes 40 mg = 1 M emoria e 40 mg 4-09 tab, PO, l oral 15:27: Daily, # [place] enteric 00 30 tab, 0 coated Refill(s), tablet Pharmacy: [place] [id number], 162.56, cm, 08/29/20 5:30:00 CDT, Height, 97.273, kg, 08/29/20 5:30:00 CDT, Weight pantoprazol 2020-0 Yes 40 mg = 1 M emoria e 40 mg 4-09 tab, PO, l oral 15:27: Daily, # [place] enteric 00 30 tab, 0 coated Refill(s), tablet Pharmacy: [place] [address], 162.56, cm, 08/29/20 5:30:00 CDT, Height, 97.273, [...] Skylar nn 00 tab, 0 Refill(s), Pharmacy: [place] [address], 162.56, cm, 08/29/20 5:30:00 CDT, Height, 97.273, [...] Skylar nn 00 tab, 0 Refill(s), Pharmacy: [place] [address], 162.56, cm, 08/29/20 5:30:00 CDT, Height, 97.273, [...] Skylar nn 00 tab, 0 Refill(s), Pharmacy: [place] [address], 162.56, cm, 08/29/20 5:30:00 CDT, Height, 97.273, [...] Skylar nn 00 tab, 0 Refill(s), Pharmacy: [place] [address], 162.56, cm, 08/29/20 5:30:00 CDT, Height, 97.273, kg, 08/29/20 5:30:00 CDT, Weight pantoprazol 2020-0 No 40 mg = 1 M emoria e 40 mg 4-09 tab, PO, l oral 15:26: Daily, # [place] enteric 00 30 tab, 0 coated Refill(s) tablet sucralfate 2020-0 Yes 1 gm = 1 Mem oria 1 g oral 4-09 tab, PO, l tablet 15:26: Q12H, # 28 Skylar nn 00 tab, 0 Refill(s), Pharmacy: [facility], 162.56, cm, 08/29/20 5:30:00 CDT, Height, 97.273, kg, 08/29/20 5:30:00 CDT, Weight pantoprazol 2020-0 No 40 mg = 1 M emoria e 40 mg 4-09 tab, PO, l oral 15:26: Daily, # [place] enteric 00 30 tab, 0 coated Refill(s) tablet sucralfate Yes 1 gm = 1 Mem oria 1 g oral 4-09 tab, PO, l tablet 15:26: Q12H, # 28 Skylar nn 00 tab, 0 Refill(s), Pharmacy: [facility], 162.56, cm, 08/29/20 5:30:00 CDT, [...] Skylar nn 00 tab, 0 Refill(s), Pharmacy: [facility], 162.56, cm, 08/29/20 5:30:00 CDT, Height, 97.273, kg, 08/29/20 5:30:00 CDT, Weight Saline No Notes: Memoria Flush 0.9% 4-09 (Same as: l 15:25: BD [place] 00 Posiflush) Lorazepam No Notes: Memori a 4-09 (Same as: l 15:25: Ativan) [place] 00 Saline No Notes: Memoria Flush 0.9% 4-09 (Same as: l 15:25: BD [place] 00 Posiflush) Lorazepam No Notes: Memori a 4-09 (Same as: l 15:25: Ativan) [place] 00 Saline No Notes: [facility] Flush 0.9% [...] 4-09 (Same as: l 15:25: BD [place] Posiflush) Lorazepam No Notes: Memori a 4-09 [...] Route: PO, l 14:01: Drug form: [place] 00 TAB, ONCE, Dosing Weight 97.273, kg, [...] 08-29 Route: l 14:01: IVP, PRN, [place] 00 Dosing Weight 97.273, kg, PRN Benzodiaze [...] 08-29 Route: l 14:01: IVP, ONCE, [place] 00 Dosing Weight 97.273, kg, PRN Nausea [...] 08-29 Route: l 14:01: IVP, ONCE, [place] 00 Dosing Weight 97.273, kg, PRN Nausea [...] 08-29 Route: l 14:01: IVP, ONCE, [place] 00 Dosing Weight 97.273, kg, PRN Nausea [...] ne 08-29 Route: l 14:01: IVP, [place] 00 Q5Min, Dosing Weight 97.273, kg, PRN [...] 08-29 Route: l 14:01: IVP, PRN, [place] 00 Dosing Weight 97.273, kg, PRN Benzodiaze [...] 08-29 Route: l 14:01: IVP, PRN, [place] 00 Dosing Weight 97.273, kg, PRN Benzodiaze [...] 08-29 Route: l 14:01: IVP, PRN, [place] 00 Dosing Weight 97.273, kg, PRN Benzodiaze [...] 08-29 Route: l 14:01: IVP, ONCE, [place] 00 Dosing Weight 97.273, kg, PRN Nausea & Vomiting, Start date: 08/29/20 9:01:00 CDT Labetalol 1-0 No 10 mg, Memori a 08-29 Route: l 14:01: IVP, [place] 00 Q5Min, Dosing Weight 97.273, kg, PRN [...] ne 08-29 Route: l 14:01: IVP, [place] 00 Q5Min, Dosing Weight 97.273, kg, PRN [...] Drug form: l 13:42: INJ, ONCE, [place] 00 Stop date: 08/29/20 8:42:00 CDT norepinephr 2020-0 No Route: IV, [facility] in[facility] (ANES) 08-29 Drug form: l 10 13:15: INJ, Start [place] microgram date: 08/29/20 8:15:00 CDT, Stop date: 08/29/20 9:15:00 CDT norepinephr 2020-0 No Route: IV, [facility] (ANES) 08-29 Drug form: l 10 13:15: INJ, Start [place] microgram date: 08/29/20 8:15:00 CDT, Stop date: 08/29/20 9:15:00 CDT norepinephr 2020-0 No Route: IV, [facility] (ANES) 08-29 Drug form: l 10 13:15: INJ, Start [place] microgram date: 08/29/20 8:15:00 CDT, Stop date: [...] form: l 10 13:15: INJ, Start [place] microgram 00 date: 08/29/20 8:15:00 CDT, Stop date: 08/29/20 9:15:00 CDT norepinephr 2020-0 No Route: IV, [facility] (ANES) 08-29 Drug form: l 10 13:15: INJ, Start [place] microgram date: 08/29/20 8:15:00 CDT, Stop date: 08/29/20 9:15:00 CDT Sodium 2021-0 No Route: IV, [facility] Chloride 4-09 Total l 0.9% IV 12:30: Volume: [place] (ANES) 1000 00 1,000, mL Start date: 08/29/20 7:30:00 CDT, Stop date: 08/29/20 8:30:00 CDT Sodium 2021-0 No Route: IV, [facility] Chloride 4-09 Total l 0.9% IV 12:30: Volume: [place] (ANES) 1000 00 1,000, mL Start date: 08/29/20 7:30:00 CDT, Stop date: 08/29/20 8:30:00 CDT Sodium 2021-0 No Route: IV, [facility] Chloride 4-09 Total l 0.9% IV 12:30: Volume: [place] (ANES) 1000 00 1,000, mL Start date: [...] Total l 0.9% IV 12:30: Volume: [place] (ANES) 1000 00 1,000, mL Start date: [...] l Hydrochlori 11:42: Q24H, # 30 [place] de 150 MG 00 tab, 0 Extended [...] 4 Q12H, tab, l Tablet 11:41: 0 [place] [Eliquis] 00 Refill(s), For Atrial Fibrilatio n apixaban 2020-0 Yes 5 mg, PO, Me moria MG Oral 4- Q12H, tab, l Tablet 11:41: 0 [place] [Eliquis] 00 Refill(s), For Atrial Fibrilatio n apixaban 2020-0 Yes 5 mg, PO, Me [facility] MG Oral 4- Q12H, tab, l Tablet 11:41: 0 [place] [Eliquis] 00 Refill(s), For Atrial Fibrilatio n apixaban 2020-0 Yes 5 mg, PO, Me [facility] MG Oral 4-09 Q12H, tab, l Tablet 11:41: 0 [place] [Eliquis] 00 Refill(s), For Atrial Fibrilatio n apixaban 5 0 Yes 5 mg, PO, Me mor[facility] MG Oral 4- Q12H, tab, l Tablet 11:41: 0 [place] [Eliquis] 00 Refill(s), For Atrial Fibrilatio n apixaban 5 0 Yes 5 mg, PO, Me mor[facility] MG Oral 08-29 Q12H, tab, l Tablet 11:41: 0 [place] [Eliquis] 00 Refill(s), For Atrial Fibrilatio n AMIODarone Yes 200 mg = 1 M em[place] 200 mg oral 4-09 tab, PO, l tablet 11:38: Daily, # [place] 00 90 tab, 3 Refill(s) AMIODarone Yes 200 mg = 1 M [facility] 200 mg oral -09 tab, PO, l tablet 11:38: Daily, # [place] 00 90 tab, 3 Refill(s) AMIODarone Yes 200 mg = 1 M [place] 200 mg oral 09 tab, PO, l tablet 11:38: Daily, # [place] 00 90 tab, 3 Refill(s) AMIODarone Yes 200 mg = 1 M [place] 200 mg oral 4-09 tab, PO, l tablet 11:38: Daily, # [place] 00 90 tab, 3 Refill(s) AMIODarone Yes 200 mg = 1 [facility] [place] 200 mg oral -09 tab, PO, l tablet 11:38: Daily, # [place] 00 90 tab, 3 Refill(s) AMIODarone Yes 200 mg = 1 [facility] [place] 200 mg oral 4-09 tab, PO, l tablet 11:38: Daily, # [place] 00 90 tab, 3 Refill(s) AMIODarone Yes 200 mg = 1 [facility] [place] 200 mg oral 4-09 tab, PO, l tablet 11:38: Daily, # [place] 00 90 tab, 3 Refill(s) normal No [...] 00 l predniSONE 2020-0 Yes [place] (Deltasone) [facility]- [facility] 20 MG 00:00: tablet 00 predniSONE [...] COVID-19 2020-07-23 Completed [facility] VACCINATION 00:00:00 [facility] PFIZER COVID-19 2020-07-23 Completed [facility] MRNA VACCINATION 00:00:00 [facility] PFIZER COVID-19 2020-07-23 Completed [facility] MRNA VACCINATION 00:00:00 [facility] PFIZER COVID-19 2020-07-23 Completed [facility] MRNA VACCINATION 00:00:00 [facility] PFIZER COVID-19 2020-07-23 Completed [facility] MRNA VACCINATION 00:00:00 [facility] PFIZER COVID-19 2020-07-23 Completed [facility] MRNA VACCINATION 00:00:00 [facility] PFIZER COVID-19 2020-07-23 Completed [facility] MRNA VACCINATION 00:00:00 [facility] PFIZER COVID-19 2020-07-23 Completed [facility] MRNA VACCINATION 00:00:00 [facility] PFIZER COVID-19 2020-07-23 Completed [facility] MRNA VACCINATION 00:00:00 [facility] PFIZER COVID-19 2020-07-23 Completed [facility] MRNA VACCINATION 00:00:00 [facility] PFIZER COVID-19 2020-07-23 Completed [facility] MRNA VACCINATION 00:00:00 [facility] PFIZER COVID-19 2020-07-23 Completed [facility] MRNA VACCINATION 00:00:00 [facility] PFIZER COVID-19 2020-07-23 Completed [facility] MRNA VACCINATION 00:00:00 [facility] PFIZER COVID-19 2020-07-23 Completed [facility] MRNA VACCINATION 00:00:00 [facility] PFIZER COVID-19 2020-07-23 Completed [facility] MRNA VACCINATION 00:00:00 [facility] PFIZER COVID-19 2020-07-23 Completed [facility] MRNA VACCINATION 00:00:00 [facility] PFIZER COVID-19 2020-07-23 Completed [facility] MRNA VACCINATION 00:00:00 [facility] PFIZER COVID-19 2020-07-23 Completed [facility] MRNA VACCINATION 00:00:00 [facility] PFIZER COVID-19 2020-07-23 Completed [facility] MRNA VACCINATION 00:00:00 [facility] PFIZER COVID-19 2020-07-23 Completed [facility] MRNA VACCINATION 00:00:00 [facility] PFIZER COVID-19 2020-07-23 Completed [facility] MRNA VACCINATION 00:00:00 [facility] PFIZER COVID-19 2020-07-23 Completed [facility] MRNA VACCINATION 00:00:00 [facility] PFIZER COVID-19 2020-07-23 Completed [facility] MRNA VACCINATION 00:00:00 [facility] PFIZER COVID-19 2020-07-23 Completed [facility] MRNA VACCINATION 00:00:00 [facility] PFIZER COVID-19 2020-07-23 Completed [facility] MRNA VACCINATION 00:00:00 [facility] PFIZER COVID-19 2020-07-23 Completed [facility] MRNA VACCINATION 00:00:00 [facility] PFIZER COVID-19 2020-07-23 Completed [facility] MRNA VACCINATION 00:00:00 [facility] PFIZER COVID-19 2020-07-23 Completed [facility] MRNA VACCINATION 00:00:00 [facility] PFIZER COVID-19 2020-07-23 Completed [facility] MRNA VACCINATION 00:00:00 [facility] PFIZER COVID-19 2020-07-23 Completed [facility] MRNA VACCINATION 00:00:00 [facility] PFIZER COVID-19 2020-07-23 Completed [facility] MRNA VACCINATION 00:00:00 [facility] PEG COVID-19 2020-07-23 Completed [facility] MRNA VACCINATION 00:00:00 [facility] PFIZER COVID-19 2020-07-23 Completed [facility] MRNA VACCINATION 00:00:00 [facility] PEG COVID-19 2020-07-23 Completed [facility] MRNA VACCINATION 00:00:00 [facility] PEG COVID-19 2020-07-23 Completed [facility] MRNA VACCINATION 00:00:00 [facility] PEG COVID-19 2020-07-23 Completed [facility] MRNA VACCINATION 00:00:00 [facility] PEG COVID-19 2020-07-23 Completed [facility] MRNA VACCINATION 00:00:00 [facility] PEG COVID-19 2020-07-23 Completed [facility] MRNA VACCINATION 00:00:00 [facility] PEG COVID-19 2020-07-23 Completed [facility] MRNA VACCINATION 00:00:00 [facility] PEG COVID-19 2020-07-23 Completed [facility] MRNA VACCINATION 00:00:00 [facility] PEG COVID-19 2020-07-23 Completed [facility] MRNA VACCINATION 00:00:00 [facility] PEG COVID-19 2020-07-23 Completed [facility] MRNA VACCINATION 00:00:00 [facility] PEG COVID-19 2020-07-23 Completed [facility] MRNA VACCINATION 00:00:00 [facility] PFIZER COVID-19 2020-07-23 Completed [facility] MRNA VACCINATION 00:00:00 [facility] PEG COVID-19 2020-07-23 Completed [facility] MRNA VACCINATION 00:00:00 [facility] PFIZER COVID-19 2020-07-23 Completed [facility] MRNA VACCINATION 00:00:00 [facility] PFIZER COVID-19 2020-07-23 Completed [facility] MRNA VACCINATION 00:00:00 [facility] PFIZER COVID-19 2020-07-23 Completed [facility] MRNA VACCINATION 00:00:00 [facility] PFIZER COVID-19 2020-07-23 Completed [facility] MRNA VACCINATION 00:00:00 [facility] PFIZER COVID-19 2020-07-23 Completed [facility] VACCINATION 00:00:00 [facility] PFIZER COVID-19 2020-07-23 Completed [facility] MRNA VACCINATION 00:00:00 [facility] PFIZER COVID-19 2020-07-23 Completed [facility] MRNA VACCINATION 00:00:00 [facility] PFIZER COVID-19 2020-07-23 Completed [facility] MRNA VACCINATION 00:00:00 [facility] PFIZER COVID-19 2020-07-23 Completed [facility] MRNA VACCINATION 00:00:00 [facility] PFIZER COVID-19 2020-07-23 Completed [facility] MRNA VACCINATION 00:00:00 [facility] PFIZER COVID-19 2020-07-23 Completed [facility] MRNA VACCINATION 00:00:00 [facility] PFIZER COVID-19 2020-07-23 Completed [facility] MRNA VACCINATION 00:00:00 [facility] PFIZER COVID-19 2020-07-23 Completed [facility] MRNA VACCINATION 00:00:00 [facility] PFIZER COVID-19 2020-07-23 Completed [facility] MRNA VACCINATION 00:00:00 [facility] PFIZER COVID-19 2020-07-23 Completed [facility] MRNA VACCINATION 00:00:00 [facility] PFIZER COVID-19 2020-07-23 Completed [facility] MRNA VACCINATION 00:00:00 [facility] SARS-COV-2 COVID-19 2020-07-23 Completed [facility] PFIZER VACCINE 00:00:00 [facility] SARS-COV-2 COVID-19 2020-07-23 Completed [facility] PFIZER VACCINE 00:00:00 [facility] SARS-COV-2 COVID-19 2020-07-23 Completed [facility] PFIZER VACCINE 00:00:00 [facility] SARS-COV-2 COVID-19 2020-07-23 Completed [facility] PFIZER VACCINE 00:00:00 [facility] SARS-COV-2 COVID-19 2020-07-23 Completed [facility] PFIZER VACCINE 00:00:00 [facility] SARS-COV-2 COVID-19 2020-07-23 Completed [facility] PFIZER VACCINE 00:00:00 [facility] SARS-COV-2 COVID-19 2020-07-23 Completed [facility] PFIZER VACCINE 00:00:00 [facility] SARS-COV-2 COVID-19 2020-07-23 Completed [facility] PFIZER VACCINE 00:00:00 [facility] SARS-COV-2 COVID-19 2020-07-23 Completed [facility] PFIZER VACCINE 00:00:00 [facility] SARS-COV-2 COVID-19 2020-07-23 Completed [facility] PFIZER VACCINE 00:00:00 [facility] SARS-COV-2 COVID-19 2020-07-23 Completed [facility] PFIZER VACCINE 00:00:00 [facility] SARS-COV-2 COVID-19 2020-07-23 Completed [facility] PFIZER VACCINE 00:00:00 [facility] SARS-COV-2 COVID-19 2020-07-23 Completed [facility] PFIZER VACCINE 00:00:00 [facility] SARS-COV-2 COVID-19 2020-07-23 Completed [facility] PFIZER VACCINE 00:00:00 [facility] SARS-COV-2 COVID-19 2020-07-23 Completed [facility] PFIZER VACCINE 00:00:00 [facility] SARS-COV-2 COVID-19 2020-07-23 Completed [facility] PFIZER VACCINE 00:00:00 [facility] SARS-COV-2 COVID-19 2020-07-23 Completed [facility] PFIZER VACCINE 00:00:00 [facility] SARS-COV-2 COVID-19 2020-07-23 Completed [facility] PFIZER VACCINE 00:00:00 [facility] PFIZER COVID-19 2020-07-23 Completed [facility] MRNA VACCINATION 00:00:00 [facility] PFIZER COVID-19 2020-07-02 Completed [facility] MRNA VACCINATION 00:00:00 [facility] PFIZER COVID-19 2020-07-02 Completed [facility] MRNA VACCINATION 00:00:00 [facility] PFIZER COVID-19 2020-07-02 Completed [facility] VACC[facility] 00:00:00 [facility] PFIZER COVID-19 2020-07-02 Completed [facility] VACCINATION 00:00:00 [facility] PFIZER COVID-19 2020-07-02 Completed [facility] M[facility] VACCINATION 00:00:00 [facility] PFIZER COVID-19 2020-07-02 Completed [facility] MRNA VACCINATION 00:00:00 [facility] PFIZER COVID-19 2020-07-02 Completed [facility] MRNA VACCINATION 00:00:00 [facility] PFIZER COVID-19 2020-07-02 Completed [facility] MRNA VACCINATION 00:00:00 [facility] PFIZER COVID-19 2020-07-02 Completed [facility] MRNA VACCINATION 00:00:00 [facility] PFIZER COVID-19 2020-07-02 Completed [facility] MRNA VACCINATION 00:00:00 [facility] PFIZER COVID-19 2020-07-02 Completed [facility] MRNA VACCINATION 00:00:00 [facility] PFIZER COVID-19 2020-07-02 Completed [facility] MRNA VACCINATION 00:00:00 [facility] PFIZER COVID-19 2020-07-02 Completed [facility] MRNA VACCINATION 00:00:00 [facility] PFIZER COVID-19 2020-07-02 Completed [facility] MRNA VACCINATION 00:00:00 [facility] PFIZER COVID-19 2020-07-02 Completed [facility] MRNA VACCINATION 00:00:00 [facility] PFIZER COVID-19 2020-07-02 Completed [facility] MRNA VACCINATION 00:00:00 [facility] PEG COVID-19 2020-07-02 Completed [facility] MRNA VACCINATION 00:00:00 [facility] PFIZER COVID-19 2020-07-02 Completed [facility] MRNA VACCINATION 00:00:00 [facility] PFIZER COVID-19 2020-07-02 Completed [facility] MRNA VACCINATION 00:00:00 [facility] PFIZER COVID-19 2020-07-02 Completed [facility] MRNA VACCINATION 00:00:00 [facility] PFIZER COVID-19 2020-07-02 Completed [facility] MRNA VACCINATION 00:00:00 [facility] PFIZER COVID-19 2020-07-02 Completed [facility] MRNA VACCINATION 00:00:00 [facility] PFIZER COVID-19 2020-07-02 Completed [facility] MRNA VACCINATION 00:00:00 [facility] PFIZER COVID-19 2020-07-02 Completed [facility] MRNA VACCINATION 00:00:00 [facility] PFIZER COVID-19 2020-07-02 Completed [facility] MRNA VACCINATION 00:00:00 [facility] PFIZER COVID-19 2020-07-02 Completed [facility] MRNA VACCINATION 00:00:00 [facility] PFIZER COVID-19 2020-07-02 Completed [facility] MRNA VACCINATION 00:00:00 [facility] PFIZER COVID-19 2020-07-02 Completed [facility] MRNA VACCINATION 00:00:00 [facility] PFIZER COVID-19 2020-07-02 Completed [facility] MRNA VACCINATION 00:00:00 [facility] PFIZER COVID-19 2020-07-02 Completed [facility] MRNA VACCINATION 00:00:00 [facility] PFIZER COVID-19 2020-07-02 Completed [facility] MRNA VACCINATION 00:00:00 [facility] PFIZER COVID-19 2020-07-02 Completed [facility] MRNA VACCINATION 00:00:00 [facility] PFIZER COVID-19 2020-07-02 Completed [facility] MRNA VACCINATION 00:00:00 [facility] PEG COVID-19 2020-07-02 Completed [facility] MRNA VACCINATION 00:00:00 [facility] PFIZER COVID-19 2020-07-02 Completed [facility] MRNA VACCINATION 00:00:00 [facility] PFIZER COVID-19 2020-07-02 Completed [facility] MRNA VACCINATION 00:00:00 [facility] PFIZER COVID-19 2020-07-02 Completed [facility] MRNA VACCINATION 00:00:00 [facility] PFIZER COVID-19 2020-07-02 Completed [facility] MRNA VACCINATION 00:00:00 [facility] PEG COVID-19 2020-07-02 Completed [facility] MRNA VACCINATION 00:00:00 [facility] PEG FELIZID-19 2020-07-02 Completed [facility] MRNA VACCINATION 00:00:00 [facility] PFIZER COVID-19 2020-07-02 Completed [facility] MRNA VACCINATION 00:00:00 [facility] PFIZER COVID-19 2020-07-02 Completed [facility] MRNA VACCINATION 00:00:00 [facility] PEG COVID-19 2020-07-02 Completed [facility] MRNA VACCINATION 00:00:00 [facility] PFIZER COVID-19 2020-07-02 Completed [facility] MRNA VACCINATION 00:00:00 [facility] PEG COVID-19 2020-07-02 Completed [facility] MRNA VACCINATION 00:00:00 [facility] PFIZER COVID-19 2020-07-02 Completed [facility] MRNA VACCINATION 00:00:00 [facility] PFIZER COVID-19 2020-07-02 Completed [facility] MRNA VACCINATION 00:00:00 [facility] PFIZER COVID-19 2020-07-02 Completed [facility] MRNA VACCINATION 00:00:00 [facility] PFIZER COVID-19 2020-07-02 Completed [facility] MRNA VACCINATION 00:00:00 [facility] PFIZER COVID-19 2020-07-02 Completed [facility] MRNA VACCINATION 00:00:00 [facility] PFIZER COVID-19 2020-07-02 Completed [facility] MRNA VACCINATION 00:00:00 [facility] PFIZER COVID-19 2020-07-02 Completed [facility] MRNA VACCINATION 00:00:00 [facility] PFIZER COVID-19 2020-07-02 Completed [facility] MRNA VACCINATION 00:00:00 [facility] PFIZER COVID-19 2020-07-02 Completed [facility] VACCINATION 00:00:00 [facility] PFIZER COVID-19 2020-07-02 Completed [facility] VACCINATION 00:00:00 [facility] PFIZER COVID-19 2020-07-02 Completed [facility] MRNA VACCINATION 00:00:00 [facility] PFIZER COVID-19 2020-07-02 Completed [facility] M[facility] VACCINATION 00:00:00 [facility] PFIZER COVID-19 2020-07-02 Completed [facility] MRNA VACCINATION 00:00:00 [facility] PFIZER COVID-19 2020-07-02 Completed [facility] MRNA VACCINATION 00:00:00 [facility] PFIZER COVID-19 2020-07-02 Completed [facility] MRNA VACCINATION 00:00:00 [facility] PFIZER COVID-19 2020-07-02 Completed [facility] MRNA VACCINATION 00:00:00 [facility] SARS-COV-2 COVID-19 2020-07-02 Completed [facility] PFIZER VACCINE 00:00:00 [facility] SARS-COV-2 COVID-19 2020-07-02 Completed [facility] PFIZER VACCINE 00:00:00 [facility] SARS-COV-2 COVID-19 2020-07-02 Completed [facility] PFIZER VACCINE 00:00:00 [facility] SARS-COV-2 COVID-19 2020-07-02 Completed [facility] PFIZER VACCINE 00:00:00 [facility] SARS-COV-2 COVID-19 2020-07-02 Completed [facility] PFIZER VACCINE 00:00:00 [facility] SARS-COV-2 COVID-19 2020-07-02 Completed [facility] PFIZER VACCINE 00:00:00 [facility] SARS-COV-2 COVID-19 2020-07-02 Completed [facility] PFIZER VACCINE 00:00:00 [facility] SARS-COV-2 COVID-19 2020-07-02 Completed [facility] PFIZER VACCINE 00:00:00 [facility] SARS-COV-2 COVID-19 2020-07-02 Completed [facility] PFIZER VACCINE 00:00:00 [facility] SARS-COV-2 COVID-19 2020-07-02 Completed [facility] PFIZER VACCINE 00:00:00 [facility] SARS-COV-2 COVID-19 2020-07-02 Completed [facility] PFIZER VACCINE 00:00:00 [facility] SARS-COV-2 COVID-19 2020-07-02 Completed [facility] PFIZER VACCINE 00:00:00 [facility] SARS-COV-2 COVID-19 2020-07-02 Completed [facility] PFIZER VACCINE 00:00:00 [facility] SARS-COV-2 COVID-19 2020-07-02 Completed [facility] PFIZER VACCINE 00:00:00 [facility] SARS-COV-2 COVID-19 2020-07-02 Completed [facility] PFIZER VACCINE 00:00:00 [facility] SARS-COV-2 COVID-19 2020-07-02 Completed [facility] PFIZER VACCINE 00:00:00 [facility] SARS-COV-2 COVID-19 2020-07-02 Completed [facility] PFIZER VACCINE 00:00:00 [facility] SARS-COV-2 COVID-19 2020-07-02 Completed [facility] PFIZER VACCINE 00:00:00 [facility] PFIZER COVID-19 2020-07-02 Completed [facility] MRNA VACCINATION 00:00:00 [facility] Influenza Virus [...] (3+ yrs) 00:00:00 [facility] Pneumococcal 13 2014-01-30 Completed [facility] Conjugate, PCV13 00:00:00 [facility] (Prevnar 13) [place] Influenza Virus 2014-01-30 Completed [facility] Vaccine (3+ yrs) 00:00:00 [facility] Pneumococcal 13 2014-01-30 Completed [facility] Conjugate, PCV13 00:00:00 [facility] (Prevnar 13) Branch Influenza Virus 2014-01-30 Completed [facility] Vaccine (3+ yrs) 00:00:00 [facility] Pneumococcal 13 2014-01-30 Completed [facility] Conjugate, PCV13 00:00:00 [facility] (Prevnar 13) [facility] Influenza Virus 2014-01-30 Completed [facility] Vaccine (3+ yrs) 00:00:00 [facility] Pneumococcal 13 2014-01-30 Completed [facility] Conjugate, PCV13 00:00:00 [facility] (Prevnar 13) [facility] Influenza Virus 2014-01-30 Completed [facility] Vaccine (3+ yrs) 00:00:00 [facility] Pneumococcal 13 2014-01-30 Completed [facility] Conjugate, PCV13 00:00:00 [facility] (Prevnar 13) [facility] Influenza Virus 2014-01-30 Completed [facility] Vaccine (3+ yrs) 00:00:00 [facility] Pneumococcal 13 2014-01-30 Completed [facility] Conjugate, PCV13 00:00:00 [facility] (Prevnar 13) [facility] Influenza Virus 2014-01-30 Completed [facility] Vaccine (3+ yrs) 00:00:00 [facility] Pneumococcal 13 2014-01-30 Completed [facility] Conjugate, PCV13 00:00:00 [facility] (Prevnar 13) [facility] Influenza Virus 2014-01-30 Completed [facility] Vaccine (3+ yrs) 00:00:00 [facility] Pneumococcal 13 2014-01-30 Completed [facility] Conjugate, PCV13 00:00:00 [facility] dical (Prevnar 13) Branch Influenza Virus 2014-01-30 Completed [facility] Vaccine (3+ yrs) 00:00:00 [facility] Pneumococcal 13 2014-01-30 Completed [facility] of Conjugate, PCV13 00:00:00 [facility] dical (Prevnar 13) Branch Influenza Virus 2014-01-30 Completed [facility] Vaccine (3+ yrs) 00:00:00 [facility] Pneumococcal 13 2014-01-30 Completed [facility] Conjugate, PCV13 00:00:00 [facility] dical (Prevnar 13) Branch Influenza Virus 2014-01-30 Completed [facility] Vaccine (3+ yrs) 00:00:00 [facility] Pneumococcal 13 2014-01-30 Completed [facility] Conjugate, PCV13 00:00:00 [facility] dical (Prevnar 13) Branch Influenza Virus 2014-01-30 Completed [facility] Vaccine (3+ yrs) 00:00:00 [facility] Pneumococcal 13 2014-01-30 Completed [facility] Conjugate, PCV13 00:00:00 [facility] dical (Prevnar 13) Branch Influenza Virus 2014-01-30 Completed [facility] Vaccine (3+ yrs) 00:00:00 [facility] Branch Pneumococcal 13 2014-01-30 Completed [facility] Conjugate, PCV13 00:00:00 [facility] dical (Prevnar 13) Branch Influenza Virus 2014-01-30 Completed [facility] Vaccine (3+ yrs) 00:00:00 [facility] Pneumococcal 13 2014-01-30 Completed [facility] Conjugate, PCV13 00:00:00 [facility] dical (Prevnar 13) Branch Influenza Virus 2014-01-30 Completed [facility] Vaccine (3+ yrs) 00:00:00 [facility] Pneumococcal 13 2014-01-30 Completed [facility] Conjugate, PCV13 00:00:00 [facility] dical (Prevnar 13) Branch Influenza Virus 2014-01-30 Completed [facility] Vaccine (3+ yrs) 00:00:00 [facility] Pneumococcal 13 2014-01-30 Completed [facility] Conjugate, PCV13 00:00:00 [facility] dical (Prevnar 13) Branch Influenza Virus 2014-01-30 Completed [facility] Vaccine (3+ yrs) 00:00:00 [facility] Branch Pneumococcal 13 2014-01-30 Completed [facility] Conjugate, PCV13 00:00:00 [facility] dical (Prevnar 13) Branch Influenza Virus 2014-01-30 Completed [facility] Vaccine (3+ yrs) 00:00:00 [facility] Branch Pneumococcal 13 2014-01-30 Completed [facility] Conjugate, PCV13 00:00:00 [facility] dical (Prevnar 13) Branch Influenza Virus 2014-01-30 Completed [facility] Vaccine (3+ yrs) 00:00:00 [facility] Branch Pneumococcal 13 2014-01-30 Completed [facility] Conjugate, PCV13 00:00:00 [place] [facility] (Prevnar 13) [facility] Influenza Virus 2014-01-30 Completed [facility] Vaccine (3+ yrs) 00:00:00 [facility] Branch Pneumococcal 13 2014-01-30 Completed [facility]it y of Conjugate, PCV13 00:00:00 [facility] dical (Prevnar 13) Branch Influenza Virus 2014-01-30 Completed Universit y of Vaccine (3+ yrs) 00:00:00 [facility] dical Branch Pneumococcal 13 2014-01-30 Completed Universit y of Conjugate, PCV13 00:00:00 [facility] dical (Prevnar 13) Branch Influenza Virus 2014-01-30 Completed Universit y of Vaccine (3+ yrs) 00:00:00 [facility] dical Branch Pneumococcal 13 2014-01-30 Completed Universit y of Conjugate, PCV13 00:00:00 [facility] dical (Prevnar 13) Branch Pneumococcal 2012-02-16 Completed University o f Polysaccharide, 00:00:00 [place] [facility] PPSV23 (PNEUMOVAX) Branch Influenza Virus 2012-02-16 Completed Universit y of Vaccine 00:00:00 [facility] PPD (TB) 2012-02-16 Completed University of 00:00:00 [facility] Pneumococcal 2012-02-16 Completed University o f Polysaccharide, 00:00:00 [place] [facility] PPSV23 (PNEUMOVAX) Branch Influenza Virus 2012-02-16 Completed Universit y of Vaccine 00:00:00 [facility] PPD (TB) 2012-02-16 Completed University of 00:00:00 [facility] Pneumococcal 2012-02-16 Completed University o f Polysaccharide, 00:00:00 [place] [facility] PPSV23 (PNEUMOVAX) Branch Influenza Virus 2012-02-16 Completed Universit y of Vaccine 00:00:00 [facility] PPD (TB) 2012-02-16 Completed University of 00:00:00 [facility] Pneumococcal 2012-02-16 Completed University o f Polysaccharide, 00:00:00 [place] [facility] PPSV23 (PNEUMOVAX) Branch Influenza Virus 2012-02-16 Completed Universit y of Vaccine 00:00:00 [facility] PPD (TB) 2012-02-16 Completed University of 00:00:00 [facility] Pneumococcal 2012-02-16 Completed University o f Polysaccharide, 00:00:00 [place] [facility] PPSV23 (PNEUMOVAX) Branch Influenza Virus 2012-02-16 Completed Universit y of Vaccine 00:00:00 [facility] PPD (TB) 2012-02-16 Completed University of 00:00:00 [facility] Pneumococcal 2012-02-16 Completed University o f Polysaccharide, 00:00:00 [place] [facility] PPSV23 (PNEUMOVAX) Branch Influenza Virus 2012-02-16 Completed Universit y of Vaccine 00:00:00 [facility] PPD (TB) 2012-02-16 Completed University of 00:00:00 [facility] Pneumococcal 2012-02-16 Completed University o f Polysaccharide, 00:00:00 [place] [facility] PPSV23 (PNEUMOVAX) Branch Influenza Virus [...] 2012-02-16 Completed University o f Polysaccharide, 00:00:00 [place] [facility] PPSV23 (PNEUMOVAX) Branch Influenza Virus 2012-02-16 Completed Universit y of Vaccine 00:00:00 [facility] PPD (TB) 2012-02-16 Completed University of 00:00:00 [facility] Pneumococcal 2012-02-16 Completed University o f Polysaccharide, 00:00:00 [place] [facility] PPSV23 (PNEUMOVAX) Branch Influenza Virus 2012-02-16 Completed Universit y of Vaccine 00:00:00 [facility] PPD (TB) 2012-02-16 Completed University of 00:00:00 [facility] Pneumococcal 2012-02-16 Completed University o f Polysaccharide, 00:00:00 [place] [facility] PPSV23 (PNEUMOVAX) Branch Influenza Virus 2012-02-16 Completed Universit y of Vaccine 00:00:00 [facility] PPD (TB) 2012-02-16 Completed University of 00:00:00 [facility] Pneumococcal 2012-02-16 Completed University o f Polysaccharide, 00:00:00 [place] [facility] PPSV23 (PNEUMOVAX) Branch Influenza Virus 2012-02-16 Completed Universit y of Vaccine 00:00:00 [facility] PPD (TB) 2012-02-16 Completed University of 00:00:00 [facility] Pneumococcal 2012-02-16 Completed University o f Polysaccharide, 00:00:00 [place] [facility] PPSV23 (PNEUMOVAX) Branch Influenza Virus [...] 2012-02-16 Completed University o f Polysaccharide, 00:00:00 [place] [facility] PPSV23 (PNEUMOVAX) Branch Influenza Virus 2012-02-16 Completed Universit y of Vaccine 00:00:00 [facility] PPD (TB) 2012-02-16 Completed University of 00:00:00 [facility] Pneumococcal 2012-02-16 Completed University o f Polysaccharide, 00:00:00 [place] [facility] PPSV23 (PNEUMOVAX) Branch Influenza Virus 2012-02-16 Completed Universit y of Vaccine 00:00:00 [facility] PPD (TB) 2012-02-16 Completed University of 00:00:00 [facility] Pneumococcal 2012-02-16 Completed University o f Polysaccharide, 00:00:00 [place] [facility] PPSV23 (PNEUMOVAX) Branch Influenza Virus 2012-02-16 Completed Universit y of Vaccine 00:00:00 [facility] PPD (TB) 2012-02-16 Completed University of 00:00:00 [facility] Pneumococcal 2012-02-16 Completed University o f Polysaccharide, 00:00:00 [place] [facility] PPSV23 (PNEUMOVAX) Branch Influenza Virus 2012-02-16 Completed Universit y of Vaccine 00:00:00 [facility] PPD (TB) 2012-02-16 Completed University of 00:00:00 [facility] Pneumococcal 2012-02-16 Completed University o f Polysaccharide, 00:00:00 [place] [facility] PPSV23 (PNEUMOVAX) Branch Influenza Virus 2012-02-16 Completed Universit y of Vaccine 00:00:00 [facility] PPD (TB) 2012-02-16 Completed University of 00:00:00 [facility] Pneumococcal 2012-02-16 Completed University o f Polysaccharide, 00:00:00 [facility] PPSV23 (PNEUMOVAX) [place] Influenza Virus 2012-02-16 Completed Universit y of Vaccine 00:00:00 [facility] PPD (TB) 2012-02-16 Completed University 00:00:00 [facility] Hep B, Adol [...] 2011-03-17 Completed Unive rsity of Dosage 00:00:00 [facility] Hep B, Adol or Pedi 2011-03-17 Completed Unive rsity of Dosage 00:00:00 [facility] Hep B, Adol or Pedi 2011-03-17 Completed Unive rsity of Dosage 00:00:00 [facility] Hep B, Adol or Pedi 2011-03-17 Completed Unive rsity of Dosage 00:00:00 [facility] Hep B, Adol or Pedi 2011-03-17 Completed Unive rsity of Dosage 00:00:00 [facility] Hep B, Adol or Pedi 2011-03-17 Completed Unive rsity of Dosage 00:00:00 [facility] Hep B, Adol or Pedi 2011-03-17 Completed Unive rsity of Dosage 00:00:00 [facility] Hep B, Adol or Pedi 2011-03-17 Completed Unive rsity of Dosage 00:00:00 [facility] Hep B, Adol or Pedi 2011-03-17 Completed Unive rsity of Dosage 00:00:00 [facility] Hep B, Adol or Pedi 2011-03-17 Completed Unive rsity of Dosage 00:00:00 [facility] Influenza Virus 2011-02-10 Completed Universit y of Vaccine 00:00:00 [facility] Hep B, Adol or Pedi 2011-02-10 Completed Unive rsity of Dosage 00:00:00 [facility] Influenza Virus 2011-02-10 Completed Universit y of Vaccine 00:00:00 [facility] Hep B, Adol or Pedi 2011-02-10 Completed Unive rsity of Dosage 00:00:00 [facility] Influenza Virus 2011-02-10 Completed Universit y of Vaccine 00:00:00 [facility] Hep B, Adol or Pedi 2011-02-10 Completed Unive rsity of Dosage 00:00:00 [facility] Influenza Virus 2011-02-10 Completed Universit y of Vaccine 00:00:00 [facility] Hep B, Adol or Pedi 2011-02-10 Completed Unive rsity of Dosage 00:00:00 [facility] Influenza Virus 2011-02-10 Completed Universit y of Vaccine 00:00:00 [facility] Hep B, Adol or Pedi 2011-02-10 Completed Unive rsity of Dosage 00:00:00 [facility] Influenza Virus 2011-02-10 Completed Universit y of Vaccine 00:00:00 [facility] Hep B, Adol or Pedi 2011-02-10 [...] of Vaccine 00:00:00 [facility] Hep B, Adol or Pedi 2011-02-10 Completed Unive rsity of Dosage 00:00:00 [facility] Influenza Virus 2011-02-10 Completed Universit y of Vaccine 00:00:00 [facility] Hep B, Adol or Pedi 2011-02-10 Completed Unive rsity of Dosage 00:00:00 [facility] Influenza Virus 2011-02-10 Completed Universit y of Vaccine 00:00:00 [facility] Hep B, Adol or Pedi 2011-02-10 Completed Unive rsity of Dosage 00:00:00 [facility] Influenza Virus 2011-02-10 Completed Universit y of Vaccine 00:00:00 [facility] Hep B, Adol or Pedi 2011-02-10 Completed Unive rsity of Dosage 00:00:00 [facility] Influenza Virus 2011-02-10 Completed Universit y of Vaccine 00:00:00 [facility] Hep B, Adol or Pedi 2011-02-10 [...] of Vaccine 00:00:00 [facility] Hep B, Adol or Pedi 2011-02-10 [...] University of 00:00:00 [facility] TDAP (ADACEL) 2010-11-18 Completed University of VACCINE 00:00:00 [facility] PPD (TB) 2010-11-18 Completed University of 00:00:00 [facility] TDAP (ADACEL) 2010-11-18 Completed University of VACCINE 00:00:00 [facility] PPD (TB) 2010-11-18 Completed University of 00:00:00 [facility] TDAP (ADACEL) 2010-11-18 Completed University of VACCINE 00:00:00 [facility] PPD (TB) 2010-11-18 Completed University of 00:00:00 [facility] TDAP (ADACEL) 2010-11-18 Completed University of VACCINE 00:00:00 [facility] PPD (TB) 2010-11-18 Completed University of 00:00:00 [facility] TDAP (ADACEL) 2010-11-18 Completed University of [...] University of 00:00:00 [facility] TDAP (ADACEL) 2010-11-18 Completed University of VACCINE 00:00:00 [facility] PPD (TB) 2010-11-18 Completed University of 00:00:00 [facility] TDAP (ADACEL) 2010-11-18 Completed University of VACCINE 00:00:00 [facility] PPD (TB) 2010-11-18 Completed University of 00:00:00 [facility] TDAP (ADACEL) 2010-11-18 Completed University of VACCINE 00:00:00 [facility] PPD (TB) 2010-11-18 Completed University of 00:00:00 [facility] TDAP (ADACEL) 2010-11-18 Completed University of [...] University of 00:00:00 [facility] TDAP (ADACEL) 2010-11-18 Completed University of [...] University of 00:00:00 [facility] HEPATITIS A 2004-03-02 Completed University of 00:00:00 [facility] HEPATITIS A 2004-03-02 Completed University of 00:00:00 [facility] HEPATITIS A 2004-03-02 Completed University of 00:00:00 [facility] HEPATITIS A 2004-03-02 Completed University of 00:00:00 [facility] HEPATITIS A 2004-03-02 Completed University of 00:00:00 [facility] HEPATITIS A 2004-03-02 Completed University of 00:00:00 [facility] HEPATITIS A 2004-03-02 Completed University of 00:00:00 [facility] HEPATITIS A 2004-03-02 Completed University of 00:00:00 [facility] HEPATITIS A 2004-03-02 Completed University of 00:00:00 [facility] HEPATITIS A 2004-03-02 Completed University of 00:00:00 [facility] HEPATITIS A 2004-03-02 Completed University of 00:00:00 [facility] HEPATITIS A 2004-03-02 Completed University of 00:00:00 [facility] HEPATITIS A 2004-03-02 Completed University of 00:00:00 [facility] HEPATITIS A 2004-03-02 Completed University of 00:00:00 [facility] HEPATITIS A 2004-03-02 Completed University of 00:00:00 [facility] HEPATITIS A 2004-03-02 Completed University of 00:00:00 [facility] HEPATITIS A 2004-03-02 Completed University of 00:00:00 [facility] HEPATITIS A 2004-03-02 Completed University of 00:00:00 [facility] HEPATITIS A 2004-03-02 Completed University of 00:00:00 [facility] HEPATITIS A 2004-03-02 Completed University of 00:00:00 [facility] HEPATITIS A 2004-03-02 Completed University of 00:00:00 [facility] HEPATITIS A 2003-08-01 Completed University of 00:00:00 [facility] HEPATITIS A 2003-08-01 Completed University of 00:00:00 [facility] HEPATITIS A 2003-08-01 Completed University of 00:00:00 [facility] HEPATITIS A 2003-08-01 Completed University of 00:00:00 [facility] HEPATITIS A 2003-08-01 Completed University of 00:00:00 [facility] HEPATITIS A 2003-08-01 Completed University of 00:00:00 [facility] HEPATITIS A 2003-08-01 Completed University of 00:00:00 [facility] HEPATITIS A 2003-08-01 Completed University of 00:00:00 [facility] HEPATITIS A 2003-08-01 Completed University of 00:00:00 [facility] HEPATITIS A 2003-08-01 Completed University of 00:00:00 [facility] HEPATITIS A 2003-08-01 Completed University of 00:00:00 [facility] HEPATITIS A 2003-08-01 Completed University of 00:00:00 [facility] HEPATITIS A 2003-08-01 Completed University of 00:00:00 [facility] HEPATITIS A 2003-08-01 Completed University of [...] 2001-10-04 Completed University o f Polysaccharide, 00:00:00 [place] [facility] PPSV23 (PNEUMOVAX) Branch PPD (TB) 2001-10-04 Completed University of 00:00:00 [facility] Pneumococcal 2001-10-04 Completed University o f Polysaccharide, 00:00:00 [place] [facility] PPSV23 (PNEUMOVAX) Branch PPD (TB) 2001-10-04 Completed University of 00:00:00 [facility] Pneumococcal 2001-10-04 Completed University o f Polysaccharide, 00:00:00 [place] [facility] PPSV23 (PNEUMOVAX) Branch PPD (TB) 2001-10-04 Completed University of 00:00:00 [facility] Pneumococcal 2001-10-04 Completed University o f Polysaccharide, 00:00:00 [place] [facility] PPSV23 (PNEUMOVAX) Branch PPD (TB) [...] 2001-10-04 Completed University o f Polysaccharide, 00:00:00 [place] [facility] PPSV23 (PNEUMOVAX) Branch PPD (TB) 2001-10-04 Completed University of 00:00:00 [facility] Pneumococcal 2001-10-04 Completed University o f Polysaccharide, 00:00:00 [place] [facility] PPSV23 (PNEUMOVAX) Branch PPD (TB) 2001-10-04 Completed University of 00:00:00 [facility] Pneumococcal 2001-10-04 Completed University o f Polysaccharide, 00:00:00 [place] [facility] PPSV23 (PNEUMOVAX) Branch PPD (TB) 2001-10-04 Completed University of 00:00:00 [facility] Vital Signs Vital Name Observation Time Observation Value Comments Source Systolic blood 2022-05-10 22:00:00 159 mm[Hg] Univer sity of pressure [facility] Diastolic blood 2022-05-10 22:00:00 87 mm[Hg] Unive rsity of [facility] Heart rate 2022-05-10 22:00:00 56 /min [facility] Body temperature 2022-05-10 22:00:00 36.61 Amina [facility] 2022-05-10 22:00:00 17 /min [facility] Oxygen saturation in 2022-05-10 22:00:00 98 /min [facility] Arterial blood by [facility] Pulse oximetry Branch Body weight 2022-05-10 16:29:00 78.926 kg [facility] BMI 2022-05-10 16:29:00 29.87 kg/m2 [facility] Systolic blood 2022-05-08 22:30:00 168 mm[Hg] Univer sity of pressure [facility] Diastolic blood 2022-05-08 22:30:00 85 mm[Hg] Unive rsity of pressure [facility] Heart rate 2022-05-08 22:30:00 68 /min Universi ty of [facility] Oxygen saturation in 2022-05-08 22:30:00 100 /min University of Arterial blood by [facility] Pulse oximetry Branch Body temperature 2022-05-08 22:22:00 35.89 Amina Univ ersity of [facility] Respiratory rate 2022-05-08 22:22:00 14 /min Univ ersity of [facility] Body weight 2022-05-08 22:22:00 78.926 kg Universi ty of [place] [facility] BMI 2022-05-08 22:22:00 29.87 kg/m2 Universi ty of [facility] Systolic blood 2022-05-07 00:00:00 149 mm[Hg] Univer sity of pressure [facility] Diastolic blood 2022-05-07 00:00:00 132 mm[Hg] Unive rsity of pressure [facility] Heart rate 2022-05-07 00:00:00 59 /min Universi ty of [facility] Respiratory rate 2022-05-07 00:00:00 14 /min Univ ersity of [facility] Oxygen saturation in 2022-05-07 00:00:00 99 /min University of Arterial blood by [facility] Pulse oximetry Branch Body temperature 2022-05-06 20:12:00 36.5 Amina Univ ersity of [facility] Body height 2022-05-06 20:12:00 162.6 cm Universi ty of [facility] Body weight 2022-05-06 20:12:00 78.926 kg Universi ty of [place] [facility] BMI 2022-05-06 20:12:00 29.87 kg/m2 Universi ty of [facility] Systolic blood 2022-04-22 19:50:00 156 [...] 2022-04-22 19:50:00 30.55 kg/m2 Universi ty of [facility] Oxygen saturation in 2022-04-22 19:50:00 96 /min University of Arterial blood by [place] [employer] Pulse oximetry Branch Systolic blood 2022-03-05 15:23:00 167 mm[Hg] Univer sity of pressure [facility] Diastolic blood 2022-03-05 15:23:00 105 mm[Hg] Unive rsity of pressure [facility] Heart rate 2022-03-05 15:23:00 49 /min Universi ty of [facility] Body temperature 2022-03-05 15:18:00 36.67 Amina Univ ersity of [facility] Respiratory rate 2022-03-05 15:18:00 18 /min Univ ersity of [facility] Body height 2022-03-05 15:18:00 162.6 cm Universi ty of [place] [facility] Body weight 2022-03-05 15:18:00 74.707 kg Universi ty of [facility] BMI 2022-03-05 15:18:00 28.27 kg/m2 [facility] Systolic blood 2022-02-16 21:41:00 169 mm[Hg] Univer sity of pressure [facility] Diastolic blood 2022-02-16 21:41:00 86 mm[Hg] Unive rsity of pressure [facility] Heart rate 2022-02-16 21:41:00 51 /min Universi ty of [place] [facility] Body temperature 2022-02-16 21:41:00 36.56 Amina Univ ersity of [facility] Respiratory rate 2022-02-16 21:41:00 17 /min Univ ersity of [facility] Oxygen saturation in 2022-02-16 21:41:00 98 /min University of Arterial blood by [place] [facility] Pulse oximetry Branch Body height 2022-02-11 16:02:00 162.6 cm Universi ty of [facility] Body weight 2022-02-11 16:02:00 79.379 kg Universi ty of [facility] BMI 2022-02-11 16:02:00 30.04 kg/m2 Univers[facility] ty of [facility] Systolic blood 2021-11-20 13:47:00 165 mm[Hg] Univer sity of pressure [facility] Diastolic blood 2021-11-20 13:47:00 83 mm[Hg] Unive rsity of pressure [facility] Heart rate 2021-11-20 13:47:00 58 /min [facility] [place] [facility] [place] Body temperature 2021-11-20 13:42:00 36.39 Amina [facility] Respiratory rate 2021-11-20 13:42:00 16 /min Univ ersity of [facility] Body height 2021-11-20 13:42:00 162.6 cm [facility] ty [facility] [place] [facility] [place] Body weight 2021-11-20 13:42:00 84.369 kg Universi ty [facility] BMI 2021-11-20 13:42:00 31.93 kg/m2 Universi ty [facility] Systolic blood 2021-07-14 15:18:00 142 [...] 22:00:00 159 mm[Hg] Univer sity of pressure [facility] Diastolic blood 2022-05-10 22:00:00 87 mm[Hg] Unive rsity of pressure [facility] Heart rate 2022-05-10 22:00:00 56 /min [facility]i ty [facility] [place] [facility] [place] Body temperature 2022-05-10 22:00:00 36.61 Amina [facility] Respiratory rate 2022-05-10 22:00:00 17 /min [facility] Oxygen saturation in 2022-05-10 22:00:00 98 /min University of Arterial blood by [facility] Pulse oximetry Branch Body weight 2022-05-10 16:29:00 78.926 kg Universi ty of [facility] BMI 2022-05-10 16:29:00 29.87 kg/m2 Universi ty of [facility] Body height 2022-05-06 20:12:00 162.6 cm Universi ty of [facility] Systolic blood 2022-03-05 15:23:00 167 mm[Hg] Univer [facility]ity of pressure [facility] [place] Diastolic blood 2022-03-05 15:23:00 105 mm[Hg] Unive rsity of [facility] Heart rate 2022-03-05 15:23:00 49 /min Universi ty [facility] Body temperature 2022-03-05 15:18:00 36.67 Amina Univ ersity of [facility] Respiratory rate 2022-03-05 15:18:00 18 /min Univ ersity of [facility] Body height 2022-03-05 15:18:00 162.6 cm Universi ty [facility] [place] Body weight 2022-03-05 15:18:00 74.707 kg Universi ty [facility] BMI 2022-03-05 15:18:00 28.27 kg/m2 Universi ty [facility] Oxygen saturation in 2022-02-16 21:41:00 98 /min University of Arterial blood by [facility] Pulse oximetry Branch Systolic blood 2020-12-08 15:48:00 125 mm[Hg] [facility] Di[facility] blood 2020-12-08 15:48:00 76 mm[Hg] [facility] pressure Heart rate 2020-12-08 15:48:00 64 /min [facility] Body temperature 2020-12-08 15:48:00 36.61 Amina [facility] Respiratory rate 2020-12-08 15:48:00 17 /min [facility] Body height 2020-12-08 15:48:00 162.6 cm [facility] Body weight 2020-12-08 15:48:00 98.884 kg [facility] BMI 2020-12-08 15:48:00 37.42 kg[facility]m2 [facility] O[facility] in 2020-12-08 15:48:00 97 /min [facility] Arterial blood by Pulse oximetry Respitory Rate 2020-08-30 13:00:00 [facility] [place] Systolic (mm Hg) 2020-08-30 13:00:00 Caesar rial [place] Diastolic (mm Hg) 2020-08-30 13:00:00 Mem orial [place] Systolic (mm Hg) 2020-08-30 11:00:00 Caesar rial [place] Diastolic (mm Hg) 2020-08-30 11:00:00 Mem orial [place] Temperature Oral (F) 2020-08-30 11:00:00 98.4 F [facility] Respitory Rate 2020-08-30 11:00:00 [facility] Respitory Rate 2020-08-30 10:00:00 [facility] [place] Systolic (mm Hg) 2020-08-30 10:00:00 Caesar rial [place] Diastolic (mm Hg) 2020-08-30 10:00:00 Mem orial [place] Temperature Oral (F) 2020-08-30 00:00:00 96.9 F [facility] Temperature Oral (F) 2020-08-29 11:26:00 97.6 F [facility] Height 2020-08-29 10:30:00 162.56 cm [facility] Weight 2020-08-29 10:30:00 [facility] BMI Calculated 2020-08-29 10:30:00 [place] [facility] Procedures Procedure Date / Time Performing Clinician Source Performed URINALYSIS 2022-05-10 19:36:00 [facility] TROPONIN I 2022-05-10 18:34:00 [facility] COMP. METABOLIC PANEL 2022-05-10 18:34:00 Home [facility] ([id number]) [facility] CBC WITH DIFF 2022-05-10 18:34:00 [facility] XR CHEST 2 VW 2022-05-10 17:24:58 [facility] CONSENT/REFUSAL FOR 2022-05-10 16:26:23 Doctor Unassigned[facility] DIAGNOSIS AND TREATMENT [place] [facility] CONSENT/REFUSAL FOR 2022-05-10 16:26:09 Doctor Unasseunice, [facility] DIAGNOSIS AND TREATMENT [place] [facility] URINALYSIS 2022-05-08 22:43:00 Theresa Hickman [facility] XR CHEST 2 VW 2022-05-06 22:56:53 Anette Olea [facility] COMP. METABOLIC PANEL 2022-05-06 22:14:00 Anette Olea [facility] ([id number]) Medical Branch CBC WITH DIFF 2022-05-06 22:14:00 Anette Olea [facility] COVID-19 (ID NOW RAPID 2022-05-06 22:14:00 Anette Olea [facility] TESTING) Medical Branch BASIC METABOLIC PANEL (NA, 2022-04-22 21:23:00 Paulette Gray [facility] K, CL, CO2, GLUCOSE, BUN, Medica l [place] CREATININE, CA) CBC WITH DIFF 2022-04-22 21:23:00 Paulette Gray [facility] CONSENT/REFUSAL FOR 2022-04-22 19:45:46 Doctor Unasseunice, [facility] DIAGNOSIS AND TREATMENT [place] [facility] SARS-COV-2 COVID-19 2022-03-05 16:09:27 [facility] DIMITRIS-SUCROSE VACCINE [address] [place] [address] YRS+, BIVALENT 0.3ML, IM, (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) FLU 2022-03-05 16:09:27 [facility] VACC(),65+YR,0.5 Medica l Branch ML,IM,ADJUVANTED,QUAD(FLUA D) FLU 2022-03-05 16:09:27 [facility] VACC(),65+YR,0.5 Medica l Branch ML,IM,ADJUVANTED,QUAD(FLUA D) SARS-COV-2 COVID-19 2022-03-05 16:09:27 [facility] DIMITRIS-SUCROSE VACCINE [address] [place] [address] YRS+, BIVALENT 0.3ML, IM, (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) MAGNESIUM 2022-02-15 09:41:00 Radha Sofia [facility] BASIC METABOLIC PANEL (NA, 2022-02-15 09:41:00 Sofia Garcia [facility] K, CL, CO2, GLUCOSE, BUN, Medica l Branch CREATININE, CA) CBC WITH DIFF 2022-02-15 09:41:00 Sofia [facility] N-TERMINAL PRO-BNP 2022-02-15 09:41:00 Radha [facility] CBC WITH DIFF 2022-02-15 09:41:00 Radha [facility] BASIC METABOLIC PANEL (NA, 2022-02-15 09:41:00 Sofia Garcia [facility] K, CL, CO2, GLUCOSE, BUN, Medica l Branch CREATININE, CA) MAGNESIUM 2022-02-15 09:41:00 Radha Sofia [facility] N-TERMINAL PRO-BNP 2022-02-15 09:41:00 Sofia [facility] BASIC METABOLIC PANEL (NA, 2022-02-13 09:40:00 Sofia Garcia [facility] K, CL, CO2, GLUCOSE, BUN, Medica l Branch CREATININE, CA) CBC WITH DIFF 2022-02-13 09:40:00 Radha [facility] BASIC METABOLIC PANEL (NA, 2022-02-13 09:40:00 Sofia Garcia [facility] K, CL, CO2, GLUCOSE, BUN, Medica l Branch CREATININE, CA) CBC WITH DIFF 2022-02-13 09:40:00 Radha [facility] TROPONIN I 2022-02-11 23:41:00 Sofia [facility] N-TERMINAL PRO-BNP 2022-02-11 23:41:00 Sofia [facility] TROPONIN I 2022-02-11 23:41:00 Sofia Garcia [facility] N-TERMINAL PRO-BNP 2022-02-11 23:41:00 [facility] ECG ROUTINE & RHYTHM 2022-02-11 22:15:36 Sofia Garcia [facility] TRANSTHORACIC ECHO (TTE) 2022-02-11 21:26:50 [facility] 2022-02-11 21:26:50 [facility] 2022-02-11 07:45:43 Reilly Means [facility] CONTRAST [facility] CT ABDOMEN PELVIS W 2022-02-11 07:45:43 Reilly Means [facility] RAPID INFLUENZA A/B 2022-02-11 06:54:00 Reilly Means [facility] RAPID INFLUENZA A/B 2022-02-11 06:54:00 Reilly Means [facility] URINALYSIS 2022-02-11 06:45:00 Reilly Means [facility] URINE CULTURE 2022-02-11 06:45:00 Reilly Means [facility] URINALYSIS 2022-02-11 06:45:00 Reilly Means [facility] URINE CULTURE 2022-02-11 06:45:00 Reilly Means [facility] HB ECG ROUTINE & RHYTHM 2022-02-11 05:22:08 Reilly Means [facility] HB ECG ROUTINE & RHYTHM 2022-02-11 05:22:08 Reilly Means [facility] BLOOD CULTURE SCREEN 2022-02-11 04:58:[address] [facility] TROPONIN I 2022-02-11 04:58:00 Reilly Means [facility] COMP. METABOLIC PANEL 2022-02-11 04:58:00 Reilly Means [facility] ([id number]) [facility] CBC WITH DIFF 2022-02-11 04:58:00 Reilly Means [facility] PROTHROMBIN TIME / INR 2022-02-11 04:58:00 Reilly Means [facility] ACTIVATED PARTIAL THRMPLAS 2022-02-11 04:58:00 Reilly Means [facility] N-TERMINAL PRO-BNP 2022-02-11 04:58:00 Reilly Means [facility] LACTIC ACID WHOLE BLOOD 2022-02-11 04:58:00 Reilly Means [facility] COVID-19 (ID NOW RAPID 2022-02-11 04:58:00 Reilly Means [facility] TESTING) Medical Branch LAB ONLY COVID 2022-02-11 04:58:00 Reilly Means [facility] CBC WITH DIFF 2022-02-11 04:58:00 Reilly Means [facility] ACTIVATED PARTIAL THRMPLAS 2022-02-11 04:58:[address] [facility] PROTHROMBIN TIME / INR 2022-02-11 04:58:00 Reilly Means [facility] COVID-19 (ID NOW RAPID 2022-02-11 04:58:00 Reilly Means [facility] TESTING) Medical Branch COMP. METABOLIC PANEL 2022-02-11 04:58:00 Reilly Means [facility] ([id number]) [facility] Branch TROPONIN I 2022-02-11 04:58:00 Reilly Means [facility] N-TERMINAL PRO-BNP 2022-02-11 04:58:00 Reilly Means [facility] BLOOD CULTURE SCREEN 2022-02-11 04:58:[address] [facility] LACTIC ACID WHOLE BLOOD 2022-02-11 04:58:00 Reilly Means [facility] LAB ONLY COVID 2022-02-11 04:58:00 Reilly Means [facility] XR CHEST 1 VW 2022-02-11 04:27:42 Reilly Means [facility] XR CHEST 1 VW 2022-02-11 04:27:42 Reilly Means [facility] HOSPITAL ADMISSION 2022-02-10 05:01:00 Doctor Unassigned, [facility] Name Medical [place] H[facility]PITAL ADMISSION 2022-02-10 05:01:00 Doctor Unassigned, [facility] Name Medical Branch ECG 12-LEAD 2021-07-14 15:14:00 Elan Lira [facility] [id number] 2021-06-17 00:00:00 RASSA [facility] GASTROINTESTINAL PANEL 2020-12-08 22:21:00 [facility] XR ABDOMEN 1 VW 2020-12-08 18:06:32 Eliseo Arce spital [place] < 1 HOUR 2020-09-05 22:39:00 Eliseo Arce Ho spital SURGICAL PATHOLOGY REQUEST 2020-09-05 21:54:00 [facility] XR CHEST 1 VW PORTABLE 2020-09-05 19:55:00 [facility] Hospital DISCHARGE PATIENT 2020-09-05 17:27:55 Lucas Harris [facility] [place] AN ELECTIVE 2020-09-05 16:47:23 Kirit Flood [facility] ENDOTRACHEAL AIRWAY EGD, INTRAOPERATIVE 2020-09-05 16:27:00 [facility] 2020-09-05 15:04:00 [facility] TIME (PTT) M. PROTHROMBIN TIME WITH INR 2020-09-05 15:04:00 [facility] M. Plan of Care Planned Activity Planned Date Details Comments Source Future Scheduled 2022-12-23 Screening for [facility] Test 06:27:39 malignant neoplasm of colon (procedure) [code = 901137985] Future Scheduled 2022-12-23 Screening for [facility] Test 06:27:39 malignant neoplasm of colon (procedure) [code = 667901925] Future Scheduled 2022-12-23 Screening for [facility] Test 06:27:39 malignant neoplasm of colon (procedure) [code = 401330951] Future Scheduled 2022-12-23 [facility]ING[facility]INES ([facility] 06:27:39 of 2) [code = SHINGLES VACCINES (1 of 2)] Future Scheduled 2022-12-23 BREAST CANCER [facility] Test 06:27:39 SCREENING [code = BREAST CANCER SCREENING] Future Scheduled 2022-12-23 Screening for [facility] Test 06:27:39 malignant neoplasm of colon (procedure) [code = 746503507] Future Scheduled 2022-12-23 Screening for [facility] Test 06:27:39 malignant neoplasm of colon (procedure) [code = 183874530] Future Scheduled 2022-12-23 HEPATITIS B VACCINES Met [facility] Test 06:27:39 (1 of 3 - Risk 3-dose series) [code = HEPATITIS B VACCINES (1 of 3 - Risk 3-dose series)] Future Scheduled 2022-12-23 COVID-19 VACCINE (3 - [facility] Test 06:27:39 Pfizer series) [code = COVID-19 VACCINE (3 - Pfizer series)] Future Scheduled 2022-12-23 65+ PNEUMOCOCCAL [facility] Test 06:27:39 VACCINE (4 - PPSV23 if available, else PCV20) [code = 65+ PNEUMOCOCCAL VACCINE (4 - PPSV23 if available, else PCV20)] Future Scheduled 2022-12-23 INFLUENZA VACCINE [facility] Test 06:27:39 [code = INFLUENZA VACCINE] Future Scheduled 2022-12-23 Screening for [facility] Test 06:27:39 malignant neoplasm of colon (procedure) [code = 538830403] Future Scheduled 2022-12-23 Screening for [facility] Test 06:27:39 malignant neoplasm of colon (procedure) [code = 844766732] Future Scheduled 2022-12-23 Screening for [facility] Test 06:27:39 malignant neoplasm of colon (procedure) [code = 558280109] Future Scheduled 2022-12-23 SHINGLES VACCINES ([address] [facility] Test 06:27:39 of 2) [code = SHINGLES VACCINES (1 of 2)] Future Scheduled 2022-12-23 BREAST CANCER [facility] Test 06:27:39 SCREENING [code = BREAST CANCER SCREENING] Future Scheduled 2022-12-23 Screening for [facility] Test 06:27:39 malignant neoplasm of colon (procedure) [code = 129453421] Future Scheduled 2022-12-23 Screening for [facility] Test 06:27:39 malignant neoplasm of colon (procedure) [code = 677053256] Future Scheduled 2022-12-23 HEPATITIS B VACCINES Met [facility] Test 06:27:39 (1 of 3 - Risk 3-dose series) [code = HEPATITIS B VACCINES (1 of 3 - Risk 3-dose series)] Future Scheduled 2022-12-23 COVID-19 [facility]ACCINE ([facility] 06:27:39 Pfizer series) [code = COVID-19 VACCINE (3 - Pfizer series)] Future Scheduled 2022-12-23 65+ PNEUMOCOCCAL [facility] Test 06:27:39 VACCINE (4 - PPSV23 if available, else PCV20) [code = 65+ PNEUMOCOCCAL VACCINE (4 - PPSV23 if available, else PCV20)] Future Scheduled 2022-12-23 INFLUENZA VACCINE [facility] Test 06:27:39 [code = INFLUENZA VACCINE] Future Scheduled 2022-12-23 Screening for [facility] Test 06:27:39 malignant neoplasm of colon (procedure) [code = 852765095] Future Scheduled 2022-12-23 Screening for [facility] Test 06:27:39 malignant neoplasm of colon (procedure) [code = 375109812] Future Scheduled 2022-12-23 Screening for [facility] Test 06:27:39 malignant neoplasm of colon (procedure) [code = 032290182] Future Scheduled 2022-12-23 SHINGLES VACCINES ([address] [facility] Test 06:27:39 of 2) [code = SHINGLES VACCINES (1 of 2)] Future Scheduled 2022-12-23 BREAST CANCER [facility] Test 06:27:39 SCREENING [code = BREAST CANCER SCREENING] Future Scheduled 2022-12-23 Screening for [facility] Test 06:27:39 malignant neoplasm of colon (procedure) [code = 308407032] Future Scheduled 2022-12-23 Screening for [facility] Test 06:27:39 malignant neoplasm of colon (procedure) [code = 784602855] Future Scheduled 2022-12-23 HEPATITIS B VACCINES Met [facility] Test 06:27:39 (1 of 3 - Risk 3-dose series) [code = HEPATITIS B VACCINES (1 of 3 - Risk 3-dose series)] Future Scheduled 2022-12-23 COVID-19 VACCINE (3 - [facility] Test 06:27:39 Pfizer series) [code = COVID-19 VACCINE (3 - Pfizer series)] Future Scheduled 2022-12-23 65+ PNEUMOCOCCAL [facility] Test 06:27:39 VACCINE (4 - PPSV23 if available, else PCV20) [code = 65+ PNEUMOCOCCAL VACCINE (4 - PPSV23 if available, else PCV20)] Future Scheduled 2022-12-23 INFLUENZA VACCINE [facility] Test 06:27:39 [code = INFLUENZA VACCINE] Future Scheduled 2022-12-23 [facility] Test 06:27:39 malignant neoplasm of colon (procedure) [code = 472415311] Future Scheduled 2022-12-23 [facility] for [facility] Test 06:27:39 malignant neoplasm of colon (procedure) [code = 603399814] Future Scheduled 2022-12-23 [facility] for [facility] Test 06:27:39 malignant neoplasm of colon (procedure) [code = 503961170] Future Scheduled 2022-12-23 SHINGLES VACCINES (1 Met [facility] Test 06:27:39 of 2) [code = SHINGLES VACCINES (1 of 2)] Future Scheduled 2022-12-23 BREAST CANCER [facility] Test 06:27:39 SCREENING [code = BREAST CANCER SCREENING] Future Scheduled 2022-12-23 [facility] for [facility] Test 06:27:39 malignant neoplasm of colon (procedure) [code = 376918712] Future Scheduled 2022-12-23 [facility] for [facility] Test 06:27:39 malignant neoplasm of colon (procedure) [code = 561720216] Future Scheduled 2022-12-23 HEPATITIS B VACCINES Met [facility] Test 06:27:39 (1 of 3 - Risk 3-dose series) [code = HEPATITIS B VACCINES (1 of 3 - Risk 3-dose series)] Future Scheduled 2022-12-23 COVID-19 VACCINE (3 - [facility] Test 06:27:39 Pfizer series) [code = COVID-19 VACCINE (3 - Pfizer series)] Future Scheduled 2022-12-23 65+ [facility] VACCINE (4 - PPSV23 if available, else PCV20) [code = 65+ PNEUMOCOCCAL VACCINE (4 - PPSV23 if available, else PCV20)] Future Scheduled 2022-12-23 INFLUENZA VACCINE [facility] Test 06:27:39 [code = INFLUENZA VACCINE] Future Scheduled 2022-12-13 [facility] for [facility] Test 16:46:16 malignant neoplasm of colon (procedure) [code = 187510592] Future Scheduled 2022-12-13 [facility] for [facility] Test 16:46:16 malignant neoplasm of colon (procedure) [code = 165487264] Future Scheduled 2022-12-13 Screening for [facility] Test 16:46:16 malignant neoplasm of colon (procedure) [code = 607722489] Future Scheduled 2022-12-13 SHINGLES VACCINES ([address] [facility] Test 16:46:16 of 2) [code = SHINGLES VACCINES (1 of 2)] Future Scheduled 2022-12-13 BREAST CANCER [facility] Test 16:46:16 SCREENING [code = BREAST CANCER SCREENING] Future Scheduled 2022-12-13 Screening for [facility] Test 16:46:16 malignant neoplasm of colon (procedure) [code = 184258726] Future Scheduled 2022-12-13 Screening for [facility] Test 16:46:16 malignant neoplasm of colon (procedure) [code = 540229621] Future Scheduled 2022-12-13 HEPATITIS B VACCINES Met [facility] Test 16:46:16 (1 of 3 - Risk 3-dose series) [code = HEPATITIS B VACCINES (1 of 3 - Risk 3-dose series)] Future Scheduled 2022-12-13 COVID-19 VACCINE (3 - [facility] Test 16:46:16 Pfizer series) [code = COVID-19 VACCINE (3 - Pfizer series)] Future Scheduled 2022-12-13 65+ PNEUMOCOCCAL [facility] Test 16:46:16 VACCINE (4 - PPSV23 if available, else PCV20) [code = 65+ PNEUMOCOCCAL VACCINE (4 - PPSV23 if available, else PCV20)] Future Scheduled 2022-12-13 INFLUENZA VACCINE Method [facility] Test 16:46:16 [code = INFLUENZA VACCINE] Future Scheduled 2022-12-13 Screening for [facility] Test 16:46:16 malignant neoplasm of colon (procedure) [code = 430780016] Future Scheduled 2022-12-13 Screening for [facility] Test 16:46:16 malignant neoplasm of colon (procedure) [code = 614416703] Future Scheduled 2022-12-13 Screening for [facility] Test 16:46:16 malignant neoplasm of colon (procedure) [code = 493528872] Future Scheduled 2022-12-13 SHINGLES VACCINES ([address] [facility] Test 16:46:16 of 2) [code = SHINGLES VACCINES (1 of 2)] Future Scheduled 2022-12-13 BREAST CANCER [facility] Test 16:46:16 SCREENING [code = BREAST CANCER SCREENING] Future Scheduled 2022-12-13 [facility] Test 16:46:16 malignant neoplasm of colon (procedure) [code = 616537478] Future Scheduled 2022-12-13 Screening for [facility] Test 16:46:16 malignant neoplasm of colon (procedure) [code = 325738922] Future Scheduled 2022-12-13 HEPATITIS B VACCINES Met [facility] Test 16:46:16 (1 of 3 - Risk 3-dose series) [code = HEPATITIS B VACCINES (1 of 3 - Risk 3-dose series)] Future Scheduled 2022-12-13 COVID-19 VACCINE (3 - [facility] Test 16:46:16 Pfizer series) [code = COVID-19 VACCINE (3 - Pfizer series)] Future Scheduled 2022-12-13 65+ PNEUMOCOCCAL [facility] Test 16:46:16 VACCINE (4 - PPSV23 if available, else PCV20) [code = 65+ PNEUMOCOCCAL VACCINE (4 - PPSV23 if available, else PCV20)] Future Scheduled 2022-12-13 INFLUENZA VACCINE Method [facility] Test 16:46:16 [code = INFLUENZA VACCINE] Future Scheduled 2022-12-13 Screening for [facility] Test 16:46:16 malignant neoplasm of colon (procedure) [code = 122751566] Future Scheduled 2022-12-13 Screening for [facility] Test 16:46:16 malignant neoplasm of colon (procedure) [code = 951270583] Future Scheduled 2022-12-13 Screening for [facility] Test 16:46:16 malignant neoplasm of colon (procedure) [code = 032473937] Future Scheduled 2022-12-13 SHINGLES VACCINES ([address] [facility] Test 16:46:16 of 2) [code = SHINGLES VACCINES (1 of 2)] Future Scheduled 2022-12-13 BREAST CANCER [facility] Test 16:46:16 SCREENING [code = BREAST CANCER SCREENING] Future Scheduled 2022-12-13 Screening for [facility] Test 16:46:16 malignant neoplasm of colon (procedure) [code = 684721360] Future Scheduled 2022-12-13 Screening for [facility] Test 16:46:16 malignant neoplasm of colon (procedure) [code = 362628328] Future Scheduled 2022-12-13 HEPATITIS B VACCINES Met [facility] Test 16:46:16 (1 of 3 - Risk 3-dose series) [code = HEPATITIS B VACCINES (1 of 3 - Risk 3-dose series)] Future Scheduled 2022-12-13 COVID-19 VACCINE (3 - [facility] Test 16:46:16 Pfizer series) [code = COVID-19 VACCINE (3 - Pfizer series)] Future Scheduled 2022-12-13 65+ PNEUMOCOCCAL [facility] Test 16:46:16 VACCINE (4 - PPSV23 if available, else PCV20) [code = 65+ PNEUMOCOCCAL VACCINE (4 - PPSV23 if available, else PCV20)] Future Scheduled 2022-12-13 INFLUENZA VACCINE [facility] Test 16:46:16 [code = INFLUENZA VACCINE] Future Scheduled 2022-11-11 Screening for [facility] Test 09:27:47 malignant neoplasm of colon (procedure) [code = 465159050] Future Scheduled 2022-11-11 Screening for [facility] Test 09:27:47 malignant neoplasm of colon (procedure) [code = 303531523] Future Scheduled 2022-11-11 Screening for [facility] Test 09:27:47 malignant neoplasm of colon (procedure) [code = 069519498] Future Scheduled 2022-11-11 SHINGLES VACCINES ([address] [facility] Test 09:27:47 of 2) [code = SHINGLES VACCINES (1 of 2)] Future Scheduled 2022-11-11 BREAST CANCER [facility] Test 09:27:47 SCREENING [code = BREAST CANCER SCREENING] Future Scheduled 2022-11-11 Screening for [facility] Test 09:27:47 malignant neoplasm of colon (procedure) [code = 091389101] Future Scheduled 2022-11-11 Screening for [facility] Test 09:27:47 malignant neoplasm of colon (procedure) [code = 925566488] Future Scheduled 2022-11-11 HEPATITIS B VACCINES Met [facility] Test 09:27:47 (1 of 3 - Risk 3-dose series) [code = HEPATITIS B VACCINES (1 of 3 - Risk 3-dose series)] Future Scheduled 2022-11-11 COVID-19 VACCINE (3 - [facility] Test 09:27:47 Pfizer series) [code = COVID-19 VACCINE (3 - Pfizer series)] Future Scheduled 2022-11-11 65+ PNEUMOCOCCAL [facility] Test 09:27:47 VACCINE (4 - PPSV23 if available, else PCV20) [code = 65+ PNEUMOCOCCAL VACCINE (4 - PPSV23 if available, else PCV20)] Future Scheduled 2022-11-11 INFLUENZA VACCINE [facility] Test 09:27:47 [code = INFLUENZA VACCINE] Future Scheduled 2022-11-11 [facility] for [facility] Test 09:27:47 malignant neoplasm of colon (procedure) [code = 228707897] Future Scheduled 2022-11-11 Scre[facility] for [facility] Test 09:27:47 malignant neoplasm of colon (procedure) [code = 139890742] Future Scheduled 2022-11-11 Scre[facility] for [facility] Test 09:27:47 malignant neoplasm of colon (procedure) [code = 035620971] Future Scheduled 2022-11-11 SHINGLES VACCINES ([address] [facility] Test 09:27:47 of 2) [code = SHINGLES VACCINES (1 of 2)] Future Scheduled 2022-11-11 BREAST CANCER [facility] Test 09:27:47 SCREENING [code = BREAST CANCER SCREENING] Future Scheduled 2022-11-11 Screening for [facility] Test 09:27:47 malignant neoplasm of colon (procedure) [code = 126756361] Future Scheduled 2022-11-11 Screening for [facility] Test 09:27:47 malignant neoplasm of colon (procedure) [code = 803617031] Future Scheduled 2022-11-11 HEPATITIS B VACCINES [facility] Test 09:27:47 (1 of 3 - Risk 3-dose series) [code = HEPATITIS B VACCINES (1 of 3 - Risk 3-dose series)] Future Scheduled 2022-11-11 COVID-19 VACCINE (3 - [facility] Test 09:27:47 Pfizer series) [code = COVID-19 VACCINE (3 - Pfizer series)] Future Scheduled 2022-11-11 65+ PNEUMOCOCCAL [facility] Test 09:27:47 VACCINE (4 - PPSV23 if available, else PCV20) [code = 65+ PNEUMOCOCCAL VACCINE (4 - PPSV23 if available, else PCV20)] Future Scheduled 2022-11-11 INFLUENZA VACCINE Method [facility] Test 09:27:47 [code = INFLUENZA VACCINE] Future Scheduled 2022-11-11 [facility] Test 09:27:47 malignant neoplasm of colon (procedure) [code = [id number]] Future Scheduled 2022-11-11 [facility] Test 09:27:47 malignant neoplasm of colon (procedure) [code = [id number]] Future Scheduled 2022-11-11 [facility] Test 09:27:47 malignant neoplasm of colon (procedure) [code = [id number]] Future Scheduled 2022-11-11 SHINGLES VACCINES ([address] [facility] Test 09:27:47 of 2) [code = SHINGLES VACCINES (1 of 2)] Future Scheduled 2022-11-11 BREAST CANCER [facility] Test 09:27:47 SCREENING [code = BREAST CANCER SCREENING] Future Scheduled 2022-11-11 Screening for [facility] Test 09:27:47 malignant neoplasm of colon (procedure) [code = [id number]] Future Scheduled 2022-11-11 Screening for [facility] Test 09:27:47 malignant neoplasm of colon (procedure) [code = [id number]] Future Scheduled 2022-11-11 HEPATITIS B VACCINES [facility] Test 09:27:47 (1 of 3 - Risk 3-dose series) [code = HEPATITIS B VACCINES (1 of 3 - Risk 3-dose series)] Future Scheduled 2022-11-11 COVID-19 VACCINE (3 - [facility] Test 09:27:47 Pfizer series) [code = COVID-19 VACCINE (3 - Pfizer series)] Future Scheduled 2022-11-11 65+ [facility] 09:27:47 VACCINE (4 - PPSV23 if available, else PCV20) [code = 65+ PNEUMOCOCCAL VACCINE (4 - PPSV23 if available, else PCV20)] Future Scheduled 2022-11-11 INFLUENZA VACCINE [facility] Test 09:27:47 [code = INFLUENZA VACCINE] Future Scheduled 2022-10-27 Screening for [facility] Test 22:40:19 malignant neoplasm of colon (procedure) [code = [id number]] Future Scheduled 2022-10-27 Screening for [facility] Test 22:40:19 malignant neoplasm of colon (procedure) [code = [id number]] Future Scheduled 2022-10-27 Screening for [facility] Test 22:40:19 malignant neoplasm of colon (procedure) [code = [id number]] Future Scheduled 2022-10-27 SHINGLES VACCINES ([address] [facility] Test 22:40:19 of 2) [code = SHINGLES VACCINES (1 of 2)] Future Scheduled 2022-10-27 BREAST CANCER [facility] Test 22:40:19 SCREENING [code = BREAST CANCER SCREENING] Future Scheduled 2022-10-27 Screening for [facility] Test 22:40:19 malignant neoplasm of colon (procedure) [code = [id number]] Future Scheduled 2022-10-27 Screening for [facility] Test 22:40:19 malignant neoplasm of colon (procedure) [code = [id number]] Future Scheduled 2022-10-27 HEPATITIS B VACCINES [facility] Test 22:40:19 (1 of 3 - Risk 3-dose series) [code = HEPATITIS B VACCINES (1 of 3 - Risk 3-dose series)] Future Scheduled 2022-10-27 COVID-19 VACCINE (3 - [facility] Test 22:40:19 Pfizer series) [code = COVID-19 VACCINE (3 - Pfizer series)] Future Scheduled 2022-10-27 65+ PNEUMOCOCCAL [facility] Test 22:40:19 VACCINE (4 - PPSV23 if available, else PCV20) [code = 65+ PNEUMOCOCCAL VACCINE (4 - PPSV23 if available, else PCV20)] Future Scheduled 2022-10-27 INFLUENZA VACCINE [facility] Test 22:40:19 [code = INFLUENZA VACCINE] Future Scheduled 2022-10-27 Screening for [facility] Test 22:40:19 malignant neoplasm of colon (procedure) [code = [id number]] Future Scheduled 2022-10-27 Screening for [facility] Test 22:40:19 malignant neoplasm of colon (procedure) [code = [id number]] Future Scheduled 2022-10-27 Screening for [facility] Test 22:40:19 malignant neoplasm of colon (procedure) [code = [id number]] Future Scheduled 2022-10-27 SHINGLES VACCINES ([address] [facility] Test 22:40:19 of 2) [code = SHINGLES VACCINES (1 of 2)] Future Scheduled 2022-10-27 BREAST CANCER [facility] Test 22:40:19 SCREENING [code = BREAST CANCER SCREENING] Future Scheduled 2022-10-27 Screening for [facility] Test 22:40:19 malignant neoplasm of colon (procedure) [code = [id number]] Future Scheduled 2022-10-27 Screening for [facility] Test 22:40:19 malignant neoplasm of colon (procedure) [code = [id number]] Future Scheduled 2022-10-27 HEPATITIS B VACCINES [facility] Test 22:40:19 (1 of 3 - Risk 3-dose series) [code = HEPATITIS B VACCINES (1 of 3 - Risk 3-dose series)] Future Scheduled 2022-10-27 COVID-19 VACCINE (3 - [facility] Test 22:40:19 Pfizer series) [code = COVID-19 VACCINE (3 - Pfizer series)] Future Scheduled 2022-10-27 65+ PNEUMOCOCCAL [facility] Test 22:40:19 VACCINE (4 - PPSV23 if available, else PCV20) [code = 65+ PNEUMOCOCCAL VACCINE (4 - PPSV23 if available, else PCV20)] Future Scheduled 2022-10-27 INFLUENZA VACCINE [facility] Test 22:40:19 [code = INFLUENZA VACCINE] Future Scheduled 2022-09-10 SHINGLES VACCINES ([address] [facility] Test 15:06:53 of 2) [code = SHINGLES VACCINES (1 of 2)] Future Scheduled 2022-09-10 BREAST CANCER [facility] Test 15:06:53 SCREENING [code = BREAST CANCER SCREENING] Future Scheduled 2022-09-10 COLONOSCOPY SCREENING [facility] Test 15:06:53 [code = COLONOSCOPY SCREENING] Future Scheduled 2022-09-10 HEPATITIS B VACCINES [facility] Test 15:06:53 (1 of 3 - Risk 3-dose series) [code = HEPATITIS B VACCINES (1 of 3 - Risk 3-dose series)] Future Scheduled 2022-09-10 COVID-19 VACCINE (3 - [facility] Test 15:06:53 Booster for Pfizer series) [code = COVID-19 VACCINE (3 - Booster for Pfizer series)] Future Scheduled 2022-09-10 65[facility] VACCINE (4 - PPSV23 if available, else PCV20) [code = 65+ PNEUMOCOCCAL VACCINE (4 - PPSV23 if available, else PCV20)] Future Scheduled 2022-09-10 INFLUENZA VACCINE Method [facility] Test 15:06:53 [code = INFLUENZA VACCINE] Future Scheduled 2022-09-10 SHINGLES VACCINES ([address] [facility] Test 15:06:53 of 2) [code = SHINGLES VACCINES (1 of 2)] Future Scheduled 2022-09-10 BREAST CANCER [facility] Test 15:06:53 SCREENING [code = BREAST CANCER SCREENING] Future Scheduled 2022-09-10 COLONOSCOPY SCREENING [facility] Test 15:06:53 [code = COLONOSCOPY SCREENING] Future Scheduled 2022-09-10 HEPATITIS B VACCINES [facility] Test 15:06:53 (1 of 3 - Risk 3-dose series) [code = HEPATITIS B VACCINES (1 of 3 - Risk 3-dose series)] Future Scheduled 2022-09-10 COVID-19 VACCINE (3 - [facility] Test 15:06:53 Booster for Pfizer series) [code = COVID-19 VACCINE (3 - Booster for Pfizer series)] Future Scheduled 2022-09-10 65+ [facility] 15:06:53 VACCINE (4 - PPSV23 if available, else PCV20) [code = 65+ PNEUMOCOCCAL VACCINE (4 - PPSV23 if available, else PCV20)] Future Scheduled 2022-09-10 INFLUENZA VACCINE Method [facility] Test 15:06:53 [code = INFLUENZA VACCINE] Future Scheduled 2022-09-10 SHINGLES VACCINES ([address] [facility] Test 15:06:53 of 2) [code = SHINGLES VACCINES (1 of 2)] Future Scheduled 2022-09-10 BREAST CANCER [facility] Test 15:06:53 SCREENING [code = BREAST CANCER SCREENING] Future Scheduled 2022-09-10 COLONOSCOPY SCREENING [facility] Test 15:06:53 [code = COLONOSCOPY SCREENING] Future Scheduled 2022-09-10 HEPATITIS B VACCINES [facility] Test 15:06:53 (1 of 3 - Risk 3-dose series) [code = HEPATITIS B VACCINES (1 of 3 - Risk 3-dose series)] Future Scheduled 2022-09-10 COVID-19 VACCINE (3 - [facility] Test 15:06:53 Booster for Pfizer series) [code = COVID-19 VACCINE (3 - Booster for Pfizer series)] Future Scheduled 2022-09-10 65+ PNEUMOCOCCAL [facility] Test 15:06:53 VACCINE (4 - PPSV23 if available, else PCV20) [code = 65+ PNEUMOCOCCAL VACCINE (4 - PPSV23 if available, else PCV20)] Future Scheduled 2022-09-10 INFLUENZA VACCINE Method [facility] Test 15:06:53 [code = INFLUENZA VACCINE] Future Scheduled 2022-09-10 SHINGLES VACCINES ([address] [facility] Test 15:06:53 of 2) [code = SHINGLES VACCINES (1 of 2)] Future Scheduled 2022-09-10 BREAST CANCER [facility] Test 15:06:53 SCREENING [code = BREAST CANCER SCREENING] Future Scheduled 2022-09-10 COLONOSCOPY SCREENING [facility] Test 15:06:53 [code = COLONOSCOPY SCREENING] Future Scheduled 2022-09-10 HEPATITIS B VACCINES [facility] Test 15:06:53 (1 of 3 - Risk 3-dose series) [code = HEPATITIS B VACCINES (1 of 3 - Risk 3-dose series)] Future Scheduled 2022-09-10 COVID-19 VACCINE (3 - [facility] Test 15:06:53 Booster for Pfizer series) [code = COVID-19 VACCINE (3 - Booster for Pfizer series)] Future Scheduled 2022-09-10 65+ PNEUMOCOCCAL [facility] Test 15:06:53 VACCINE (4 - PPSV23 if available, else PCV20) [code = 65+ PNEUMOCOCCAL VACCINE (4 - PPSV23 if available, else PCV20)] Future Scheduled 2022-09-10 INFLUENZA VACCINE Method [facility] Test 15:06:53 [code = INFLUENZA VACCINE] Future Scheduled 2022-09-10 SHINGLES VACCINES ([address] [facility] Test 15:06:53 of 2) [code = SHINGLES VACCINES (1 of 2)] Future Scheduled 2022-09-10 BREAST CANCER [facility] Test 15:06:53 SCREENING [code = BREAST CANCER SCREENING] Future Scheduled 2022-09-10 COLONOSCOPY SCREENING [facility] Test 15:06:53 [code = COLONOSCOPY SCREENING] Future Scheduled 2022-09-10 HEPATITIS B VACCINES [facility] Test 15:06:53 (1 of 3 - Risk 3-dose series) [code = HEPATITIS B VACCINES (1 of 3 - Risk 3-dose series)] Future Scheduled 2022-09-10 COVID-19 VACCINE (3 - [facility] Test 15:06:53 Booster for Pfizer series) [code = COVID-19 VACCINE (3 - Booster for Pfizer series)] Future Scheduled 2022-09-10 65+ [facility]:06:53 VACCINE (4 - PPSV23 if available, else PCV20) [code = 65+ PNEUMOCOCCAL VACCINE (4 - PPSV23 if available, else PCV20)] Future Scheduled 2022-09-10 INFLUENZA VACCINE [facility] Test 15:06:53 [code = INFLUENZA VACCINE] Future Scheduled 2022-09-10 SHINGLES VACCINES ([address] [facility] Test 15:06:53 of 2) [code = SHINGLES VACCINES (1 of 2)] Future Scheduled 2022-09-10 BREAST CANCER [facility] Test 15:06:53 SCREENING [code = BREAST CANCER SCREENING] Future Scheduled 2022-09-10 COLONOSCOPY SCREENING [facility] Test 15:06:53 [code = COLONOSCOPY SCREENING] Future Scheduled 2022-09-10 HEPATITIS B VACCINES [facility] Test 15:06:53 (1 of 3 - Risk 3-dose series) [code = HEPATITIS B VACCINES (1 of 3 - Risk 3-dose series)] Future Scheduled 2022-09-10 COVID-19 VACCINE (3 - [facility] Test 15:06:53 Booster for Pfizer series) [code = COVID-19 VACCINE (3 - Booster for Pfizer series)] Future Scheduled 2022-09-10 65+ [facility] 15:06:53 VACCINE (4 - PPSV23 if available, else PCV20) [code = 65+ PNEUMOCOCCAL VACCINE (4 - PPSV23 if available, else PCV20)] Future Scheduled 2022-09-10 INFLUENZA VACCINE [facility] Test 15:06:53 [code = INFLUENZA VACCINE] Future Scheduled 2022-09-10 SHINGLES VACCINES ([address] [facility] Test 15:06:53 of 2) [code = SHINGLES VACCINES (1 of 2)] Future Scheduled 2022-09-10 BREAST CANCER [facility] Test 15:06:53 SCREENING [code = BREAST CANCER SCREENING] Future Scheduled 2022-09-10 COLONOSCOPY SCREENING [facility] Test 15:06:53 [code = COLONOSCOPY SCREENING] Future Scheduled 2022-09-10 HEPATITIS B VACCINES [facility] Test 15:06:53 (1 of 3 - Risk 3-dose series) [code = HEPATITIS B VACCINES (1 of 3 - Risk 3-dose series)] Future Scheduled 2022-09-10 COVID-19 VACCINE (3 - [facility] Test 15:06:53 Booster for Pfizer series) [code = COVID-19 VACCINE (3 - Booster for Pfizer series)] Future Scheduled 2022-09-10 65+ [facility] 15:06:53 VACCINE (4 - PPSV23 if available, else PCV20) [code = 65+ PNEUMOCOCCAL VACCINE (4 - PPSV23 if available, else PCV20)] Future Scheduled 2022-09-10 INFLUENZA VACCINE Method [facility] Test 15:06:53 [code = INFLUENZA VACCINE] Future Scheduled 2022-09-10 SHINGLES VACCINES ([address] [facility] Test 15:06:53 of 2) [code = SHINGLES VACCINES (1 of 2)] Future Scheduled 2022-09-10 BREAST CANCER [facility] Test 15:06:53 SCREENING [code = BREAST CANCER SCREENING] Future Scheduled 2022-09-10 COLONOSCOPY SCREENING [facility] Test 15:06:53 [code = COLONOSCOPY SCREENING] Future Scheduled 2022-09-10 HEPATITIS B VACCINES [facility] Test 15:06:53 (1 of 3 - Risk 3-dose series) [code = HEPATITIS B VACCINES (1 of 3 - Risk 3-dose series)] Future Scheduled 2022-09-10 COVID-19 VACCINE (3 - [facility] Test 15:06:53 Booster for Pfizer series) [code = COVID-19 VACCINE (3 - Booster for Pfizer series)] Future Scheduled 2022-09-10 65+ [facility] 15:06:53 VACCINE (4 - PPSV23 if available, else PCV20) [code = 65+ PNEUMOCOCCAL VACCINE (4 - PPSV23 if available, else PCV20)] Future Scheduled 2022-09-10 INFLUENZA VACCINE [facility] Test 15:06:53 [code = INFLUENZA VACCINE] Future Scheduled 2022-08-26 SHINGLES VACCINES ([address] [facility] Test 14:43:48 of 2) [code = SHINGLES VACCINES (1 of 2)] Future Scheduled 2022-08-26 BREAST CANCER [facility] Test 14:43:48 SCREENING [code = BREAST CANCER SCREENING] Future Scheduled 2022-08-26 COLONOSCOPY SCREENING [facility] Test 14:43:48 [code = COLONOSCOPY SCREENING] Future Scheduled 2022-08-26 HEPATITIS B VACCINES [facility] Test 14:43:48 (1 of 3 - Risk 3-dose series) [code = HEPATITIS B VACCINES (1 of 3 - Risk 3-dose series)] Future Scheduled 2022-08-26 COVID-19 VACCINE (3 - [facility] Test 14:43:48 Booster for Pfizer series) [code = COVID-19 VACCINE (3 - Booster for Pfizer series)] Future Scheduled 2022-08-26 65+ [facility] 14:43:48 VACCINE (4 - PPSV23 if available, else PCV20) [code = 65+ PNEUMOCOCCAL VACCINE (4 - PPSV23 if available, else PCV20)] Future Scheduled 2022-08-26 INFLUENZA VACCINE [facility] Test 14:43:48 [code = INFLUENZA VACCINE] Future Scheduled 2022-08-07 SHINGLES VACCINES ([address] [facility] Test 23:30:11 of 2) [code = SHINGLES VACCINES (1 of 2)] Future Scheduled 2022-08-07 BREAST CANCER [facility] Test 23:30:11 SCREENING [code = BREAST CANCER SCREENING] Future Scheduled 2022-08-07 COLONOSCOPY SCREENING [facility] Test 23:30:11 [code = COLONOSCOPY SCREENING] Future Scheduled 2022-08-07 HEPATITIS B VACCINES [facility] Test 23:30:11 (1 of 3 - Risk 3-dose series) [code = HEPATITIS B VACCINES (1 of 3 - Risk 3-dose series)] Future Scheduled 2022-08-07 COVID-19 VACCINE (3 - [facility] Test 23:30:11 Booster for Pfizer series) [code = COVID-19 VACCINE (3 - Booster for Pfizer series)] Future Scheduled 2022-08-07 65+ [facility] 23:30:11 VACCINE (4 - PPSV23 if available, else PCV20) [code = 65+ PNEUMOCOCCAL VACCINE (4 - PPSV23 if available, else PCV20)] Future Scheduled 2022-08-07 INFLUENZA VACCINE [facility] Test 23:30:11 [code = INFLUENZA VACCINE] Future Scheduled 2022-08-07 SHINGLES VACCINES ([address] [facility] Test 23:30:11 of 2) [code = SHINGLES VACCINES (1 of 2)] Future Scheduled 2022-08-07 BREAST CANCER [facility] Test 23:30:11 SCREENING [code = BREAST CANCER SCREENING] Future Scheduled 2022-08-07 COLONOSCOPY SCREENING [facility] Test 23:30:11 [code = COLONOSCOPY SCREENING] Future Scheduled 2022-08-07 HEPATITIS B VACCINES [facility] Test 23:30:11 (1 of 3 - Risk 3-dose series) [code = HEPATITIS B VACCINES (1 of 3 - Risk 3-dose series)] Future Scheduled 2022-08-07 COVID-19 VACCINE (3 - [facility] Test 23:30:11 Booster for Pfizer series) [code = COVID-19 VACCINE (3 - Booster for Pfizer series)] Future Scheduled 2022-08-07 65+ PNEUMOCOCCAL [facility] Test 23:30:11 VACCINE (4 - PPSV23 if available, else PCV20) [code = 65+ PNEUMOCOCCAL VACCINE (4 - PPSV23 if available, else PCV20)] Future Scheduled 2022-08-07 INFLUENZA VACCINE [facility] Test 23:30:11 [code = INFLUENZA VACCINE] Future Scheduled 2022-08-06 SHINGLES VACCINES ([address] [facility] Test 15:48:02 of 2) [code = SHINGLES VACCINES (1 of 2)] Future Scheduled 2022-08-06 BREAST CANCER [facility] Test 15:48:02 SCREENING [code = BREAST CANCER SCREENING] Future Scheduled 2022-08-06 COLONOSCOPY SCREENING [facility] Test 15:48:02 [code = COLONOSCOPY SCREENING] Future Scheduled 2022-08-06 HEPATITIS B VACCINES [facility] Test 15:48:02 (1 of 3 - Risk 3-dose series) [code = HEPATITIS B VACCINES (1 of 3 - Risk 3-dose series)] Future Scheduled 2022-08-06 COVID-19 VACCINE (3 - [facility] Test 15:48:02 Booster for Pfizer series) [code = COVID-19 VACCINE (3 - Booster for Pfizer series)] Future Scheduled 2022-08-06 65+ [facility]:48:02 VACCINE (4 - PPSV23 if available, else PCV20) [code = 65+ PNEUMOCOCCAL VACCINE (4 - PPSV23 if available, else PCV20)] Future Scheduled 2022-08-06 INFLUENZA VACCINE [facility] Test 15:48:02 [code = INFLUENZA VACCINE] Future Scheduled 2022-06-11 SHINGLES VACCINES ([address] [facility] Test 16:10:12 of 2) [code = SHINGLES VACCINES (1 of 2)] Future Scheduled 2022-06-11 BREAST CANCER [facility] Test 16:10:12 SCREENING [code = BREAST CANCER SCREENING] Future Scheduled 2022-06-11 COLONOSCOPY SCREENING [facility] Test 16:10:12 [code = COLONOSCOPY SCREENING] Future Scheduled 2022-06-11 HEPATITIS B VACCINES Met [facility] Test 16:10:12 (1 of 3 - [...] PCV20)] Future Scheduled 2022-06-11 INFLUENZA VACCINE Method [facility] Test 16:10:12 [code = INFLUENZA VACCINE] Future Scheduled 2022-06-11 SHINGLES VACCINES ([address] [facility] Test 16:10:12 of 2) [code = SHINGLES VACCINES (1 of 2)] Future Scheduled 2022-06-11 BREAST CANCER [facility] Test 16:10:12 SCREENING [code = BREAST CANCER SCREENING] Future Scheduled 2022-06-11 COLONOSCOPY SCREENING [facility] Test 16:10:12 [code = COLONOSCOPY SCREENING] Future Scheduled 2022-06-11 HEPATITIS B VACCINES [facility] Test 16:10:12 (1 of 3 - Risk 3-dose series) [code = HEPATITIS B VACCINES (1 of 3 - Risk 3-dose series)] Future Scheduled 2022-06-11 COVID-19 VACCINE (3 - [facility] Test 16:10:12 Booster for Pfizer series) [code = COVID-19 VACCINE (3 - Booster for Pfizer series)] Future Scheduled 2022-06-11 65+ [facility]:10:12 VACCINE (4 - PPSV23 if available, else PCV20) [code = 65+ PNEUMOCOCCAL VACCINE (4 - PPSV23 if available, else PCV20)] Future Scheduled 2022-06-11 INFLUENZA VACCINE [facility] Test 16:10:12 [code = INFLUENZA VACCINE] Future Scheduled 2022-06-11 SHINGLES VACCINES ([address] [facility] Test 16:10:12 of 2) [code = SHINGLES VACCINES (1 of 2)] Future Scheduled 2022-06-11 BREAST CANCER [facility] Test 16:10:12 SCREENING [code = BREAST CANCER SCREENING] Future Scheduled 2022-06-11 COLONOSCOPY SCREENING [facility] Test 16:10:12 [code = COLONOSCOPY SCREENING] Future Scheduled 2022-06-11 HEPATITIS B VACCINES [facility] Test 16:10:12 (1 of 3 - Risk 3-dose series) [code = HEPATITIS B VACCINES (1 of 3 - Risk 3-dose series)] Future Scheduled 2022-06-11 COVID-19 VACCINE (3 - [facility] Test 16:10:12 Booster for Pfizer series) [code = COVID-19 VACCINE (3 - Booster for Pfizer series)] Future Scheduled 2022-06-11 65+ [facility]:10:12 VACCINE (4 - PPSV23 if available, else PCV20) [code = 65+ PNEUMOCOCCAL VACCINE (4 - PPSV23 if available, else PCV20)] Future Scheduled 2022-06-11 INFLUENZA VACCINE [facility] Test 16:10:12 [code = INFLUENZA VACCINE] Future Scheduled 2022-06-11 SHINGLES VACCINES ([address] [facility] Test 16:10:12 of 2) [code = SHINGLES VACCINES (1 of 2)] Future Scheduled 2022-06-11 BREAST CANCER [facility] Test 16:10:12 SCREENING [code = BREAST CANCER SCREENING] Future Scheduled 2022-06-11 COLONOSCOPY SCREENING [facility] Test 16:10:12 [code = COLONOSCOPY SCREENING] Future Scheduled 2022-06-11 HEPATITIS B VACCINES [facility] Test 16:10:12 (1 of 3 - Risk 3-dose series) [code = HEPATITIS B VACCINES (1 of 3 - Risk 3-dose series)] Future Scheduled 2022-06-11 COVID-19 VACCINE (3 - [facility] Test 16:10:12 Booster for Pfizer series) [code = COVID-19 VACCINE (3 - Booster for Pfizer series)] Future Scheduled 2022-06-11 65+ [facility]:10:12 VACCINE (4 - PPSV23 if available, else PCV20) [code = 65+ PNEUMOCOCCAL VACCINE (4 - PPSV23 if available, else PCV20)] Future Scheduled 2022-06-11 INFLUENZA VACCINE [facility] Test 16:10:12 [code = INFLUENZA VACCINE] Future Scheduled 2022-06-11 SHINGLES VACCINES ([address] [facility] Test 16:10:12 of 2) [code = SHINGLES VACCINES (1 of 2)] Future Scheduled 2022-06-11 [facility] [place] [facility] Test 16:10:12 SCREENING [code = BREAST CANCER SCREENING] Future Scheduled 2022-06-11 COLONOSCOPY SCREENING [facility] Test 16:10:12 [code = COLONOSCOPY SCREENING] Future Scheduled 2022-06-11 HEPATITIS B VACCINES Met [facility] Test 16:10:12 (1 of 3 - Risk 3-dose series) [code = HEPATITIS B VACCINES (1 of 3 - Risk 3-dose series)] Future Scheduled 2022-06-11 COVID-19 VACCINE (3 - Me [facility] Test 16:10:12 Booster for [...] Future Scheduled 2022-06-11 SHINGLES VACCINES ([address] [facility] Test 16:10:12 of 2) [code = SHINGLES VACCINES (1 of 2)] Future Scheduled 2022-06-11 BREAST CANCER [facility] Test 16:10:12 SCREENING [code = BREAST CANCER SCREENING] Future Scheduled 2022-06-11 COLONOSCOPY SCREENING [facility] Test 16:10:12 [code = COLONOSCOPY SCREENING] Future Scheduled 2022-06-11 HEPATITIS B VACCINES Met [facility] Test 16:10:12 (1 of 3 - Risk 3-dose series) [code = HEPATITIS B VACCINES (1 of 3 - Risk 3-dose series)] Future Scheduled 2022-06-11 COVID-19 VACCINE (3 - [facility] Test 16:10:12 Booster for [...] Future Scheduled 2022-06-11 SHINGLES VACCINES ([address] [facility] Test 16:10:12 of 2) [code = SHINGLES VACCINES (1 of 2)] Future Scheduled 2022-06-11 BREAST CANCER [facility] Test 16:10:12 SCREENING [code = BREAST CANCER SCREENING] Future Scheduled 2022-06-11 COLONOSCOPY SCREENING [facility] Test 16:10:12 [code = COLONOSCOPY SCREENING] Future Scheduled 2022-06-11 HEPATITIS B VACCINES Met [facility] Test 16:10:12 (1 of 3 - Risk 3-dose series) [code = HEPATITIS B VACCINES (1 of 3 - Risk 3-dose series)] Future Scheduled 2022-06-11 COVID-19 VACCINE (3 - [facility] Test 16:10:12 Booster for [...] Future Scheduled 2022-06-11 SHINGLES VACCINES (1 [facility] Test 16:10:12 of 2) [code = SHINGLES VACCINES (1 of 2)] Future Scheduled 2022-06-11 BREAST CANCER [facility] Test 16:10:12 SCREENING [code = BREAST CANCER SCREENING] Future Scheduled 2022-06-11 COLONOSCOPY SCREENING [facility] Test 16:10:12 [code = COLONOSCOPY SCREENING] Future Scheduled 2022-06-11 HEPATITIS B VACCINES Met [facility] Test 16:10:12 (1 of 3 - Risk 3-dose series) [code = HEPATITIS B VACCINES (1 of 3 - Risk 3-dose series)] Future Scheduled 2022-06-11 COVID-19 VACCINE (3 - [facility] Test 16:10:12 Booster for Pfizer series) [code = COVID-19 VACCINE (3 - Booster for Pfizer series)] Future Scheduled 2022-06-11 65[facility]:10[facility]12 VACCINE (4 - PPSV23 if available, else PCV20) [code = 65+ PNEUMOCOCCAL VACCINE (4 - PPSV23 if available, else PCV20)] Future Scheduled 2022-06-11 INFLUENZA VACCINE Method [facility] Test 16:10:12 [code = INFLUENZA VACCINE] Future Scheduled 2022-06-11 SHINGLES VACCINES ([address] [facility] Test 16:10:12 of 2) [code = SHINGLES VACCINES (1 of 2)] Future Scheduled 2022-06-11 BREAST CANCER [facility] Test 16:10:12 SCREENING [code = BREAST CANCER SCREENING] Future Scheduled 2022-06-11 COLONOSCOPY SCREENING [facility] Test 16:10:12 [code = COLONOSCOPY SCREENING] Future Scheduled 2022-06-11 HEPATITIS B VACCINES Met [facility] Test 16:10:12 (1 of 3 - Risk 3-dose series) [code = HEPATITIS B VACCINES (1 of 3 - Risk 3-dose series)] Future Scheduled 2022-06-11 COVID-19 VACCINE (3 - [facility] Test 16:10:12 Booster for Pfizer series) [...] Future Scheduled 2022-05-10 SHINGLES VACCINES ([address] [facility] Test 10:21:35 of 2) [code = SHINGLES VACCINES (1 of 2)] Future Scheduled 2022-05-10 BREAST CANCER [facility] Test 10:21:35 SCREENING [code = BREAST CANCER SCREENING] Future Scheduled 2022-05-10 COLONOSCOPY SCREENING [facility] Test 10:21:35 [code = COLONOSCOPY SCREENING] Future Scheduled 2022-05-10 HEPATITIS B VACCINES Met [facility] Test 10:21:35 (1 of 3 - Risk 3-dose series) [code = HEPATITIS B VACCINES (1 of 3 - Risk 3-dose series)] Future Scheduled 2022-05-10 COVID-19 VACCINE (3 - [facility] Test 10:21:35 Booster for Pfizer series) [code = COVID-19 VACCINE (3 - Booster for Pfizer series)] Future Scheduled 2022-05-10 65[facility] 10:21:35 VACCINE (4 - PPSV23 if available, else PCV20) [code = 65+ PNEUMOCOCCAL VACCINE (4 - PPSV23 if available, else PCV20)] Future Scheduled 2022-05-10 INFLUENZA VACCINE Method [facility] Test 10:21:35 [code = INFLUENZA VACCINE] Future Scheduled 2022-05-10 SHINGLES VACCINES ([address] [facility] Test 10:21:35 of 2) [code = SHINGLES VACCINES (1 of 2)] Future Scheduled 2022-05-10 BREAST CANCER [facility] Test 10:21:35 SCREENING [code = BREAST CANCER SCREENING] Future Scheduled 2022-05-10 COLONOSCOPY SCREENING [facility] Test 10:21:35 [code = COLONOSCOPY SCREENING] Future Scheduled 2022-05-10 HEPATITIS B VACCINES Met [facility] Test 10:21:35 (1 of 3 - Risk 3-dose series) [code = HEPATITIS B VACCINES (1 of 3 - Risk 3-dose series)] Future Scheduled 2022-05-10 COVID-19 VACCINE (3 - [facility] Test 10:21:35 Booster for Pfizer series) [code = COVID-19 VACCINE (3 - Booster for Pfizer series)] Future Scheduled 2022-05-10 65+ PNEUMOCOCCAL [facility] Test 10:21:35 VACCINE (4 - PPSV23 if available, else PCV20) [code = 65+ PNEUMOCOCCAL VACCINE (4 - PPSV23 if available, else PCV20)] Future Scheduled 2022-05-10 INFLUENZA VACCINE Method [facility] Test 10:21:35 [code = INFLUENZA VACCINE] Future Scheduled 2022-05-06 SHINGLES VACCINES ([address] [facility] Test 14:03:13 of 2) [code = SHINGLES VACCINES (1 of 2)] Future Scheduled 2022-05-06 BREAST CANCER [facility] Test 14:03:13 SCREENING [code = BREAST CANCER SCREENING] Future Scheduled 2022-05-06 COLONOSCOPY SCREENING [facility] Test 14:03:13 [code = COLONOSCOPY SCREENING] Future Scheduled 2022-05-06 HEPATITIS B VACCINES Met [facility] Test 14:03:13 (1 of 3 - Risk 3-dose series) [code = HEPATITIS B VACCINES (1 of 3 - Risk 3-dose series)] Future Scheduled 2022-05-06 COVID-19 VACCINE (3 - [facility] Test 14:03:13 Booster for Pfizer series) [code = COVID-19 VACCINE (3 - Booster for Pfizer series)] Future Scheduled 2022-05-06 65+ PNEUMOCOCCAL [facility] Test 14:03:13 VACCINE (4 - PPSV23 if available, else PCV20) [code = 65+ PNEUMOCOCCAL VACCINE (4 - PPSV23 if available, else PCV20)] Future Scheduled 2022-05-06 INFLUENZA VACCINE Method [facility] Test 14:03:13 [code = INFLUENZA VACCINE] Future Scheduled 2022-04-30 SHINGLES VACCINES ([address] [facility] Test 01:07:32 of 2) [code = SHINGLES VACCINES (1 of 2)] Future Scheduled 2022-04-30 BREAST CANCER [facility] Test 01:07:32 SCREENING [code = BREAST CANCER SCREENING] Future Scheduled 2022-04-30 COLONOSCOPY SCREENING [facility] Test 01:07:32 [code = COLONOSCOPY SCREENING] Future Scheduled 2022-04-30 HEPATITIS B VACCINES Met [facility] Test 01:07:32 (1 of 3 - Risk 3-dose series) [code = HEPATITIS B VACCINES (1 of 3 - Risk 3-dose series)] Future Scheduled 2022-04-30 COVID-19 VACCINE (3 - [facility] Test 01:07:32 Booster for Pfizer series) [code = COVID-19 VACCINE (3 - Booster for Pfizer series)] Future Scheduled 2022-04-30 65+ PNEUMOCOCCAL [facility] Test 01:07:32 VACCINE (4 - PPSV23 if available, else PCV20) [code = 65+ PNEUMOCOCCAL VACCINE (4 - PPSV23 if available, else PCV20)] Future Scheduled 2022-04-30 INFLUENZA VACCINE Method [facility] Test 01:07:32 [code = INFLUENZA VACCINE] Future Scheduled 2022-04-30 SHINGLES VACCINES ([address] [facility] Test 01:07:32 of 2) [code = SHINGLES VACCINES (1 of 2)] Future Scheduled 2022-04-30 BREAST CANCER [facility] Test 01:07:32 SCREENING [code = BREAST CANCER SCREENING] Future Scheduled 2022-04-30 COLONOSCOPY SCREENING [facility] Test 01:07:32 [code = COLONOSCOPY SCREENING] Future Scheduled 2022-04-30 HEPATITIS B VACCINES Met [facility] Test 01:07:32 (1 of 3 - Risk 3-dose series) [code = HEPATITIS B VACCINES (1 of 3 - Risk 3-dose series)] Future Scheduled 2022-04-30 COVID-19 VACCINE (3 - [facility] Test 01:07:32 Booster for Pfizer series) [code = COVID-19 VACCINE (3 - Booster for Pfizer series)] Future Scheduled 2022-04-30 65+ PNEUMOCOCCAL [facility] Test 01:07:32 VACCINE (4 - PPSV23 if available, else PCV20) [code = 65+ PNEUMOCOCCAL VACCINE (4 - PPSV23 if available, else PCV20)] Future Scheduled 2022-04-30 INFLUENZA VACCINE Method [facility] Test 01:07:32 [code = INFLUENZA VACCINE] Future Scheduled 2022-04-30 SHINGLES VACCINES ([address] [facility] Test 01:07:32 of 2) [code = SHINGLES VACCINES (1 of 2)] Future Scheduled 2022-04-30 BREAST CANCER [facility] Test 01:07:32 SCREENING [code = BREAST CANCER SCREENING] Future Scheduled 2022-04-30 COLONOSCOPY SCREENING [facility] Test 01:07:32 [code = COLONOSCOPY SCREENING] Future Scheduled 2022-04-30 HEPATITIS B VACCINES Met [facility] Test 01:07:32 (1 of 3 - Risk 3-dose series) [code = HEPATITIS B VACCINES (1 of 3 - Risk 3-dose series)] Future Scheduled 2022-04-30 COVID-19 VACCINE (3 - [facility] Test 01:07:32 Booster for Pfizer series) [code = COVID-19 VACCINE (3 - Booster for Pfizer series)] Future Scheduled 2022-04-30 65+ PNEUMOCOCCAL [facility] Test 01:07:32 VACCINE (4 - PPSV23 if available, else PCV20) [code = 65+ PNEUMOCOCCAL VACCINE (4 - PPSV23 if available, else PCV20)] Future Scheduled 2022-04-30 INFLUENZA VACCINE Method [facility] Test 01:07:32 [code = INFLUENZA VACCINE] Future Scheduled 2022-04-25 SHINGLES VACCINES ([address] [facility] Test 01:45:02 of 2) [code = SHINGLES VACCINES (1 of 2)] Future Scheduled 2022-04-25 BREAST CANCER [facility] Test 01:45:02 SCREENING [code = BREAST CANCER SCREENING] Future Scheduled 2022-04-25 COLONOSCOPY SCREENING [facility] Test 01:45:02 [code = COLONOSCOPY SCREENING] Future Scheduled 2022-04-25 HEPATITIS B VACCINES Met [facility] Test 01:45:02 (1 of 3 - Risk 3-dose series) [code = HEPATITIS B VACCINES (1 of 3 - Risk 3-dose series)] Future Scheduled 2022-04-25 COVID-19 VACCINE (3 - [facility] Test 01:45:02 Booster for Pfizer series) [code = COVID-19 VACCINE (3 - Booster for Pfizer series)] Future Scheduled 2022-04-25 65+ PNEUMOCOCCAL [facility] Test 01:45:02 VACCINE (4 - PPSV23 if available, else PCV20) [code = 65+ PNEUMOCOCCAL VACCINE (4 - PPSV23 if available, else PCV20)] Future Scheduled 2022-04-25 INFLUENZA VACCINE Method [facility] Test 01:45:02 [code = INFLUENZA VACCINE] Future Scheduled 2022-03-25 SHINGLES VACCINES ([address] [facility] Test 14:48:42 of 2) [code = SHINGLES VACCINES (1 of 2)] Future Scheduled 2022-03-25 BREAST CANCER [facility] Test 14:48:42 SCREENING [code = BREAST CANCER SCREENING] Future Scheduled 2022-03-25 COLONOSCOPY SCREENING [facility] Test 14:48:42 [code = COLONOSCOPY SCREENING] Future Scheduled 2022-03-25 HEPATITIS B VACCINES Met [facility] Test 14:48:42 (1 of 3 - Risk 3-dose series) [code = HEPATITIS B VACCINES (1 of 3 - Risk 3-dose series)] Future Scheduled 2022-03-25 COVID-19 VACCINE (3 - [facility] Test 14:48:42 Booster for [...] VACCINES ([address] [facility] Test 14:48:42 of 2) [code = SHINGLES VACCINES (1 of 2)] Future Scheduled 2022-03-25 BREAST CANCER [facility] Test 14:48:42 SCREENING [code = BREAST CANCER SCREENING] Future Scheduled 2022-03-25 COLONOSCOPY SCREENING [facility] Test 14:48:42 [code = COLONOSCOPY SCREENING] Future Scheduled 2022-03-25 HEPATITIS B VACCINES Met [facility] Test 14:48:42 (1 of 3 - Risk 3-dose series) [code = HEPATITIS B VACCINES (1 of 3 - Risk 3-dose series)] Future Scheduled 2022-03-25 COVID-19 VACCINE (3 - [facility] Test 14:48:42 Booster for [...] VACCINES ([address] [facility] Test 14:48:42 of 2) [code = SHINGLES VACCINES (1 of 2)] Future Scheduled 2022-03-25 BREAST CANCER [facility] Test 14:48:42 SCREENING [code = BREAST CANCER SCREENING] Future Scheduled 2022-03-25 COLONOSCOPY SCREENING [facility] Test 14:48:42 [code = COLONOSCOPY SCREENING] Future Scheduled 2022-03-25 HEPATITIS B VACCINES Met [facility] Test 14:48:42 (1 of 3 - [...] VACCINES ([address] [facility] Test 14:48:42 of 2) [code = SHINGLES VACCINES (1 of 2)] Future Scheduled 2022-03-25 BREAST CANCER [facility] Test 14:48:42 SCREENING [code = BREAST CANCER SCREENING] Future Scheduled 2022-03-25 COLONOSCOPY SCREENING [facility] Test 14:48:42 [code = COLONOSCOPY SCREENING] Future Scheduled 2022-03-25 HEPATITIS B VACCINES Met [facility] Test 14:48:42 (1 of 3 - [...] VACCINES ([address] [facility] Test 14:48:42 of 2) [code = SHINGLES VACCINES (1 of 2)] Future Scheduled 2022-03-25 BREAST CANCER [facility] Test 14:48:42 SCREENING [code = BREAST CANCER SCREENING] Future Scheduled 2022-03-25 COLONOSCOPY SCREENING [facility] Test 14:48:42 [code = COLONOSCOPY SCREENING] Future Scheduled 2022-03-25 HEPATITIS B VACCINES Met [facility] Test 14:48:42 (1 of 3 - [...] Future Scheduled 2022-03-25 SHINGLES VACCINES (1 Met [facility] Test 14:48:42 of 2) [code = SHINGLES VACCINES (1 of 2)] Future Scheduled 2022-03-25 BREAST CANCER [facility] Test 14:48:42 SCREENING [code = BREAST CANCER SCREENING] Future Scheduled 2022-03-25 COLONOSCOPY SCREENING [facility] Test 14:48:42 [code = COLONOSCOPY SCREENING] Future Scheduled 2022-03-25 HEPATITIS B VACCINES Met [facility] Test 14:48:42 (1 of 3 - Risk 3-dose series) [code = HEPATITIS B VACCINES (1 of 3 - Risk 3-dose series)] Future Scheduled 2022-03-25 COVID-19 VACCINE (3 - [facility] Test 14:48:42 Booster for Pfizer series) [code = COVID-19 VACCINE (3 - Booster for Pfizer series)] Future Scheduled 2022-03-25 65[facility] 14:48:42 VACCINE (4 - PPSV23 if available, else PCV20) [code = 65+ PNEUMOCOCCAL VACCINE (4 - PPSV23 if available, else PCV20)] Future Scheduled 2022-03-25 INFLUENZA VACCINE Method [facility] Test 14:48:42 [code = INFLUENZA VACCINE] Future Scheduled 2022-03-25 SHINGLES VACCINES ([address] [facility] Test 14:48:42 of 2) [code = SHINGLES VACCINES (1 of 2)] Future Scheduled 2022-03-25 BREAST CANCER [facility] Test 14:48:42 SCREENING [code = BREAST CANCER SCREENING] Future Scheduled 2022-03-25 COLONOSCOPY SCREENING [facility] Test 14:48:42 [code = COLONOSCOPY SCREENING] Future Scheduled 2022-03-25 HEPATITIS B VACCINES Met [facility] Test 14:48:42 (1 of 3 - Risk 3-dose series) [code = HEPATITIS B VACCINES (1 of 3 - Risk 3-dose series)] Future Scheduled 2022-03-25 COVID-19 VACCINE (3 - [facility] Test 14:48:42 Booster for Pfizer series) [code = COVID-19 VACCINE (3 - Booster for Pfizer series)] Future Scheduled 2022-03-25 65[facility] 14:48:42 VACCINE (4 - PPSV23 if available, else PCV20) [code = 65+ PNEUMOCOCCAL VACCINE (4 - PPSV23 if available, else PCV20)] Future Scheduled 2022-03-25 INFLUENZA VACCINE Method [facility] Test 14:48:42 [code = INFLUENZA VACCINE] Future Scheduled 2022-03-25 SHINGLES VACCINES ([address] [facility] Test 14:48:42 of 2) [code = SHINGLES VACCINES (1 of 2)] Future Scheduled 2022-03-25 BREAST CANCER [facility] Test 14:48:42 SCREENING [code = BREAST CANCER SCREENING] Future Scheduled 2022-03-25 COLONOSCOPY SCREENING [facility] Test 14:48:42 [code = COLONOSCOPY SCREENING] Future Scheduled 2022-03-25 HEPATITIS B VACCINES Met [facility] Test 14:48:42 (1 of 3 - Risk 3-dose series) [code = HEPATITIS B VACCINES (1 of 3 - Risk 3-dose series)] Future Scheduled 2022-03-25 COVID-19 VACCINE (3 - [facility] Test 14:48:42 Booster for Pfizer series) [code = COVID-19 VACCINE (3 - Booster for Pfizer series)] Future Scheduled 2022-03-25 65[facility] 14:48:42 VACCINE (4 - PPSV23 if available, else PCV20) [code = 65+ PNEUMOCOCCAL VACCINE (4 - PPSV23 if available, else PCV20)] Future Scheduled 2022-03-25 INFLUENZA VACCINE [facility] Test 14:48:42 [code = INFLUENZA VACCINE] Future Scheduled 2022-03-25 SHINGLES VACCINES ([address] [facility] Test 14:48:42 of 2) [code = SHINGLES VACCINES (1 of 2)] Future Scheduled 2022-03-25 BREAST CANCER [facility] Test 14:48:42 SCREENING [code = BREAST CANCER SCREENING] Future Scheduled 2022-03-25 COLONOSCOPY SCREENING [facility] Test 14:48:42 [code = COLONOSCOPY SCREENING] Future Scheduled 2022-03-25 HEPATITIS B VACCINES [facility] Test 14:48:42 (1 of 3 - Risk 3-dose series) [code = HEPATITIS B VACCINES (1 of 3 - Risk 3-dose series)] Future Scheduled 2022-03-25 COVID-19 VACCINE (3 - [facility] Test 14:48:42 Booster for [...] VACCINES ([address] [facility] Test 14:03:57 of 2) [code = SHINGLES VACCINES (1 of 2)] Future Scheduled 2022-03-04 BREAST CANCER [facility] Test 14:03:57 SCREENING [code = BREAST CANCER SCREENING] Future Scheduled 2022-03-04 COLONOSCOPY SCREENING [facility] Test 14:03:57 [code = COLONOSCOPY SCREENING] Future Scheduled 2022-03-04 HEPATITIS B VACCINES Met [facility] Test 14:03:57 (1 of 3 - Risk 3-dose series) [code = HEPATITIS B VACCINES (1 of 3 - Risk 3-dose series)] Future Scheduled 2022-03-04 COVID-19 VACCINE (3 - [facility] Test 14:03:57 Booster for Pfizer series) [code = COVID-19 VACCINE (3 - Booster for Pfizer series)] Future Scheduled 2022-03-04 65[facility] 14:03:57 VACCINE (4 - PPSV23 if available, else PCV20) [code = 65+ PNEUMOCOCCAL VACCINE (4 - PPSV23 if available, else PCV20)] Future Scheduled 2022-03-04 INFLUENZA VACCINE [facility] Test 14:03:57 [code = INFLUENZA VACCINE] Future Scheduled 2022-03-04 SHINGLES VACCINES ([address] [facility] Test 14:03:57 of 2) [code = SHINGLES VACCINES (1 of 2)] Future Scheduled 2022-03-04 BREAST CANCER [facility] Test 14:03:57 SCREENING [code = BREAST CANCER SCREENING] Future Scheduled 2022-03-04 COLONOSCOPY SCREENING [facility] Test 14:03:57 [code = COLONOSCOPY SCREENING] Future Scheduled 2022-03-04 HEPATITIS B VACCINES Met [facility] Test 14:03:57 (1 of 3 - [...] VACCINES ([address] [facility] Test 14:03:57 of 2) [code = SHINGLES VACCINES (1 of 2)] Future Scheduled 2022-03-04 BREAST CANCER [facility] Test 14:03:57 SCREENING [code = BREAST CANCER SCREENING] Future Scheduled 2022-03-04 COLONOSCOPY SCREENING [facility] Test 14:03:57 [code = COLONOSCOPY SCREENING] Future Scheduled 2022-03-04 HEPATITIS B VACCINES Met [facility] Test 14:03:57 (1 of 3 - [...] VACCINES ([address] [facility] Test 14:03:57 of 2) [code = SHINGLES VACCINES (1 of 2)] Future Scheduled 2022-03-04 BREAST CANCER [facility] Test 14:03:57 SCREENING [code = BREAST CANCER SCREENING] Future Scheduled 2022-03-04 COLONOSCOPY SCREENING [facility] Test 14:03:57 [code = COLONOSCOPY SCREENING] Future Scheduled 2022-03-04 HEPATITIS B VACCINES Met [facility] Test 14:03:57 (1 of 3 - [...] VACCINES ([address] [facility] Test 13:39:12 of 2) [code = SHINGLES VACCINES (1 of 2)] Future Scheduled 2022-02-11 BREAST CANCER [facility] Test 13:39:12 SCREENING [code = BREAST CANCER SCREENING] Future Scheduled 2022-02-11 COLONOSCOPY SCREENING [facility] Test 13:39:12 [code = COLONOSCOPY SCREENING] Future Scheduled 2022-02-11 HEPATITIS B VACCINES Met [facility] Test 13:39:12 (1 of 3 - Risk 3-dose series) [code = HEPATITIS B VACCINES (1 of 3 - Risk 3-dose series)] Future Scheduled 2022-02-11 COVID-19 VACCINE (3 - [facility] Test 13:39:12 Booster for Pfizer series) [code = COVID-19 VACCINE (3 - Booster for Pfizer series)] Future Scheduled 2022-02-11 65[facility]:39[facility]12 VACCINE (4 - PPSV23 or PCV20) [code = 65+ PNEUMOCOCCAL VACCINE (4 - PPSV23 or PCV20)] Future Scheduled 2022-02-11 INFLUENZA VACCINE Method [facility] Test 13:39:12 [code = INFLUENZA VACCINE] Future Scheduled 2022-01-29 SHINGLES VACCINES ([address] [facility] Test 14:07:20 of 2) [code = SHINGLES VACCINES (1 of 2)] Future Scheduled 2022-01-29 BREAST CANCER [facility] Test 14:07:20 SCREENING [code = BREAST CANCER SCREENING] Future Scheduled 2022-01-29 COLONOSCOPY SCREENING [facility] Test 14:07:20 [code = COLONOSCOPY SCREENING] Future Scheduled 2022-01-29 HEPATITIS B VACCINES Met [facility] Test 14:07:20 (1 of 3 - [...] PCV20)] Future Scheduled 2022-01-29 INFLUENZA VACCINE Method [facility] Test 14:07:20 [code = INFLUENZA VACCINE] Future Scheduled 2022-01-29 SHINGLES VACCINES ([address] [facility] Test 14:07:20 of 2) [code = SHINGLES VACCINES (1 of 2)] Future Scheduled 2022-01-29 BREAST CANCER [facility] Test 14:07:20 SCREENING [code = BREAST CANCER SCREENING] Future Scheduled 2022-01-29 COLONOSCOPY SCREENING [facility] Test 14:07:20 [code = COLONOSCOPY SCREENING] Future Scheduled 2022-01-29 HEPATITIS B VACCINES Met [facility] Test 14:07:20 (1 of 3 - [...] PCV20)] Future Scheduled 2022-01-29 INFLUENZA VACCINE [facility] Test 14:07:20 [code = INFLUENZA VACCINE] Future Scheduled 2022-01-29 SHINGLES VACCINES ([address] [facility] Test 14:07:20 of 2) [code = SHINGLES VACCINES (1 of 2)] Future Scheduled 2022-01-29 BREAST CANCER [facility] Test 14:07:20 SCREENING [code = BREAST CANCER SCREENING] Future Scheduled 2022-01-29 COLONOSCOPY SCREENING [facility] Test 14:07:20 [code = COLONOSCOPY SCREENING] Future Scheduled 2022-01-29 HEPATITIS B VACCINES Met [facility] Test 14:07:20 (1 of 3 - [...] PCV20)] Future Scheduled 2022-01-29 INFLUENZA VACCINE Method [facility] Test 14:07:20 [code = INFLUENZA VACCINE] Future Scheduled 2022-01-29 SHINGLES VACCINES ([address] [facility] Test 14:07:20 of 2) [code = SHINGLES VACCINES (1 of 2)] Future Scheduled 2022-01-29 BREAST CANCER [facility] Test 14:07:20 SCREENING [code = BREAST CANCER SCREENING] Future Scheduled 2022-01-29 COLONOSCOPY SCREENING [facility] Test 14:07:20 [code = COLONOSCOPY SCREENING] Future Scheduled 2022-01-29 HEPATITIS B VACCINES Met [facility] Test 14:07:20 (1 of 3 - Risk 3-dose series) [code = HEPATITIS B VACCINES (1 of 3 - Risk 3-dose series)] Future Scheduled 2022-01-29 COVID-19 VACCINE (3 - Me [facility] Test 14:07:20 Booster for Pfizer series) [code = COVID-19 VACCINE (3 - Booster for Pfizer series)] Future Scheduled 2022-01-29 65+ PNEUMOCOCCAL [facility] Test 14:07:20 VACCINE (4 - PPSV23 or PCV20) [code = 65+ PNEUMOCOCCAL VACCINE (4 - PPSV23 or PCV20)] Future Scheduled 2022-01-29 INFLUENZA VACCINE Method [facility] Test 14:07:20 [code = INFLUENZA VACCINE] Future Scheduled 2022-01-20 SHINGLES VACCINES ([address] [facility] Test 06:12:34 of 2) [code = SHINGLES VACCINES (1 of 2)] Future Scheduled 2022-01-20 Screening for [facility] Test 06:12:34 malignant neoplasm of cervix (procedure) [code = 819011699] Future Scheduled 2022-01-20 BREAST CANCER [facility] Test 06:12:34 SCREENING [code = BREAST CANCER SCREENING] Future Scheduled 2022-01-20 COLONOSCOPY SCREENING [facility] Test 06:12:34 [code = COLONOSCOPY SCREENING] Future Scheduled 2022-01-20 HEPATITIS B VACCINES Met [facility] Test 06:12:34 (1 of 3 - [...] PCV20)] Future Scheduled 2022-01-20 INFLUENZA VACCINE Method [facility] Test 06:12:34 [code = INFLUENZA VACCINE] Future Scheduled 2022-01-16 SHINGLES VACCINES ([address] [facility] Test 12:09:25 of 2) [code = SHINGLES VACCINES (1 of 2)] Future Scheduled 2022-01-16 Screening for [facility] Test 12:09:25 malignant neoplasm of cervix (procedure) [code = 661589210] Future Scheduled 2022-01-16 BREAST CANCER [facility] Test 12:09:25 SCREENING [code = BREAST CANCER SCREENING] Future Scheduled 2022-01-16 COLONOSCOPY SCREENING [facility] Test 12:09:25 [code = COLONOSCOPY SCREENING] Future Scheduled 2022-01-16 HEPATITIS B VACCINES Met [facility] Test 12:09:25 (1 of 3 - [...] PCV20)] Future Scheduled 2022-01-16 INFLUENZA VACCINE Method [facility] Test 12:09:25 [code = INFLUENZA VACCINE] Future Scheduled 2022-01-14 SHINGLES VACCINES ([address] [facility] Test 04:11:46 of 2) [code = SHINGLES VACCINES (1 of 2)] Future Scheduled 2022-01-14 Screening for [facility] Test 04:11:46 malignant neoplasm of cervix (procedure) [code = 567988313] Future Scheduled 2022-01-14 BREAST CANCER [facility] Test 04:11:46 SCREENING [code = BREAST CANCER SCREENING] Future Scheduled 2022-01-14 COLONOSCOPY SCREENING [facility] Test 04:11:46 [code = COLONOSCOPY SCREENING] Future Scheduled 2022-01-14 HEPATITIS B VACCINES Met [facility] Test 04:11:46 (1 of 3 - [...] PCV20)] Future Scheduled 2022-01-14 INFLUENZA VACCINE Method [facility] Test 04:11:46 [code = INFLUENZA VACCINE] Future Scheduled 2021-08-26 Screening for [facility] Test 13:02:23 malignant neoplasm of cervix (procedure) [code = 752348624] Future Scheduled 2021-08-26 BREAST CANCER [facility] Test 13:02:23 SCREENING [code = BREAST CANCER SCREENING] Future Scheduled 2021-08-26 COLONOSCOPY SCREENING [facility] Test 13:02:23 [code = COLONOSCOPY SCREENING] Future Scheduled 2021-08-26 Screening for [facility] Test 13:02:23 malignant neoplasm of lung (procedure) [code = 363911963] Future Scheduled 2021-08-26 SHINGLES VACCINES (#1) [facility] Test 13:02:23 [code = SHINGLES VACCINES (#1)] Future Scheduled 2021-08-26 COVID-19 VACCINE (3 - [facility] Test 13:02:23 Pfizer risk 4-dose series) [code = COVID-19 VACCINE (3 - Pfizer risk 4-dose series)] Future Scheduled 2021-08-26 65[facility]23 VACCINE (4 of 4 - PPSV23) [code = 65+ PNEUMOCOCCAL VACCINE (4 of 4 - PPSV23)] Future Scheduled 2021-08-26 INFLUENZA VACCINE Method [facility] Test 13:02:23 [code = INFLUENZA VACCINE] Encounters Start End Encounter Admission Attending Care Care Encounter Source Date/Time Date/Time Type Type Clinicians Facility Department ID 2022-02-18 Outpatient CHW [facility] [id number] [place] 14:30:[address] [place] [address] 2021-07-14 Outpatient SADIKOVIC, [facility] [id number] [place] 09:33:51 [facility] 2021-06-02 Outpatient HEMATPOUR, [facility] [id number] [place] 13:58:59 [facility] 2021-04-28 Outpatient HEMATPOUR, [facility] [id number] [place] 11:21:22 [facility] 2021-03-20 Emergency [facility] [id number] Univers 16:07:40 [facility] 2020-12-12 Outpatient HEMATPOUR, [facility] [id number] [place] 08:16:46 [facility] 2020-10-31 Outpatient HEMATPOUR, [facility] [id number] [place] 09:44:50 [facility] 2020-09-30 Outpatient HEMATPOUR, [facility] [id number] [place] 13:16:03 [facility] 2022-11-26 2022-11-26 Outpatient R [facility] [id number] Univers 08:30:00 08:30:00 [facility] 2022-11-15 2022-11-15 Outpatient R [facility] [id number] Univers 08:30:00 08:30:00 [facility] 2022-11-02 2022-11-02 Outpatient R [facility] [id number] Univers 08:30:00 08:30:00 [facility] 2022-10-27 2022-10-27 JOSÉ ANTONIO Cantrell 1.2.840.114 [id number] Univers 00:00:00 00:00:00 [facility] 350.1.13.10 i ty [place] [id number] [address] 2022-10-06 2022-10-06 Outpatient R [facility] [id number] Univers 09:30:00 09:30:00 SANTIAGO itcharlie [facility] 2022-09-26 2022-09-26 Refill [facility] 1.2.335.271 [id number] Univers 00:00:00 00:00:00 [facility] 350.1.13.10 i [place] [id number] [address] 2022-09-03 2022-09-03 Outpatient R [facility] [id number] Univers 11:00:00 11:00:00 SANTIAGO [facility] 2022-08-24 2022-08-24 Refill [facility], 1.2.840.1 [id number] Univers 00:00:00 00:00:00 Ovid 39229.1.1 ity of 3.104.2.7 [place] .3.353880 Medica l .8 Branch 2022-05-20 2022-05-20 Telephone [facility] 1.2.840.114 [id number] Univers 00:00:00 00:00:00 [facility] 350.1.13.10 i ty [place] [id number] [place] 8[address] [place] 2022-05-10 2022-05-10 Emergency X BYRON, [facility] ERT [id number] Univers 10:30:00 16:31:00 HOME ity [facility] 2022-05-10 2022-05-10 Emergency [facility], TRAU[place] 1.2.840.114 [id number] Univers 10:30:00 16:31:00 Home B CENTER 350.1.13.10 [place] [id number] [facility] 014 Branch 2022-05-10 2022-05-10 [facility] 1.2.840.114 [id number] Univers 00:00:00 00:00:00 [facility] HEALTH 350.1.13.10 i [place] [id number] [address] 2022-05-08 2022-05-08 Emergency [facility] [id number] Univers 16:18:00 18:42:00 THERESA barbosa [facility] 2022-05-08 2022-05-08 [facility] 1.2.840.114 [id number] Univers 16:18:00 18:42:00 Theresa Ivelisse BULLOCK 350.1.13.10 ity of [place] 4.2.7.2.686 [facility] [phone] [address] 2022-05-07 2022-05-07 [facility]phone [facility] 1.2.840.114 [id number] Univers 00:00:00 00:00:00 [facility] 350.1.13.10 i [place] [id number] [address] 2022-05-06 2022-05-06 Emergency [facility] [id number] Univers 14:13:00 18:19:00 ANETTE barbosa [facility] 2022-05-06 2022-05-06 [facility] 1.2.177.772 [id number] Univers 14:13:00 18:19:00 Antete BULLOCK 350.1.13.10 ity [facility] 4.2.7.2.686 [facility] [id number] [address] 2022-05-06 2022-05-06 Telephone [facility] 1.2.840.114 [id number] Univers 00:00:00 00:00:00 [facility] HEALTH 350.1.13.10 i [place] [id number] [address] 2022-04-22 2022-04-22 Emergency [facility] [id number] Univers 13:55:00 17:00:00 PAULETTE [facility] 2022-04-22 2022-04-22 Emergency [facility] 1.2.064.040 [id number] Univers 13:55:00 17:00:00 Paulette CHAMBERSJEREMY 350.1.13.10 i ty of [place] 4.2.7.2.686 [facility] [id number] [place] 838[address] [place] 2022-04-07 2022-04-07 Outpatient R [facility] [id number] Univers 20:40:00 20:40:00 ATTENDING ity [facility] 2022-04-07 2022-04-07 Telephone Devin, 1.2.840.2 [id number] Univers 00:00:00 00:00:00 Robbi Hairston 15742.1.1 i ty of 3.104.2.7 [place] .3.035969 Medica l .8 [place] 2022-03-05 2022-03-05 Reinforcer Santiago Cardenas 1.2.840.1 [id number] Univers 13:45:00 14:00:00 Visit [facility] 36351.1.1 ity of 3.104.2.7 [place] .3.046213 Medica l .8 [place] 2022-03-05 2022-03-05 Office Ronald JOSÉ ANTONIO 1.2.089.502 [id number] Univers 13:00:00 13:30:00 Visit Santiago [facility] 350.1.13.10 i ty of [facility] 4.2.7.2.686 [facility] [id number] [address] 2022-03-05 2022-03-05 Outpatient R [facility] [id number] Univers 13:00:00 13:00:00 [facility] 2022-02-26 2022-02-26 Outpatient R [facility] [id number] Univers 08:30:00 08:30:00 [facility] 2022-02-26 2022-02-26 Outpatient R [facility] [id number] Univers 08:30:00 08:30:00 [facility] 2022-02-17 2022-02-17 Transition Stevo, 1.2.840.0 [id number] Univers 00:00:00 00:00:00 of Care Isaias Maria Elena 53796.1.1 it y of 3.104.2.7 [place] .3.714838 Medica l .8 Branch 2022-02-10 2022-02-16 Inpatient X [facility] [id number] Univers 22:59:00 19:27:00 PETER ity of [facility] 2022-02-10 2022-02-16 [facility] Reilly Means 1.2.840.1 [id number] Univers 22:59:00 19:27:00 Encounter Ofe Shields 41155.1.1 ity of MarieTomy hairston 3.104.2.7 [place] .3.215762 Medica l .8 [place] 2022-02-11 2022-02-11 Telephone [place], 1.2.840.7 [id number] Univers 00:00:00 00:00:00 Santiago 85862.1.1 ity of 3.104.2.7 [place] .3.475068 Medica l .8 Branch 2022-02-10 2022-02-10 Travel 1.2.840.1 1.2.628.393 [id number] Univers 00:00:00 00:00:00 27446.1.1 350.1.13.10 ity of 3.104.2.7 4.[place].7.3.698 [place] .3.262897 084.8 Medica l .8 [place] 2022-01-30 2022-01-30 Telephone [place], 1.2.840.4 [id number] Univers 00:00:00 00:00:00 Santiago 12972.1.1 ity of 3.104.2.7 [place] .3.326229 Medica l .8 Branch 2022-01-06 2022-01-06 Orders Doctor FERMIN 1.2.840.114 [id number] Univers 00:00:00 00:00:00 Only Unassigned, JACKELINE 350.1.13.10 ity of [place] [facility] 4.2.7.2.686 Yomi as [id number] [facility] 009 Branch 2021-12-25 2021-12-25 Orders Doctor FERMIN 1.2.840.114 [id number] Univers 00:00:00 00:00:00 Only Unassigned, JACKELINE 350.1.13.10 ity of [place] [facility] 4.2.7.2.686 Yomi as [id number] [facility] 009 [place] 2021-12-12 2021-12-13 Emergency X Bill COLES [facility] ERT [id number] Univers 23:53:00 01:52:00 ity of [facility] 2021-12-12 2021-12-13 Emergency Bill Coles [facility] 1.2.840.114 [id number] Univers 23:53:00 01:52:00 Kiersten BULLOCK 350.1.13.10 i ty of [place]7.2.[place] [id number] [facility] 084 [place] 2021-11-20 2021-11-20 Reinforcer [facility] UNIVERSIT 1.2.840.114 [id number] Univers 09:45:00 10:00:00 Visit [facility] 350.1.13.10 ity of [place] [id number] [facility] 316 Branch 2021-11-20 2021-11-20 Office [facility] 1.2.636.476 [id number] Univers 08:30:00 09:00:00 Visit [facility] 350.1.13.10 i ty of [facility] 4.2.7.2.[place] [id number] [facility] 089 [place] 2021-11-20 2021-11-20 Outpatient R [facility] [id number] Univers 08:30:00 08:30:00 [facility] 2021-11-20 2021-11-20 Outpatient R [facility] [id number] Univers 08:30:00 08:30:00 [facility] 2021-11-20 2021-11-20 Outpatient R [facility] [id number] Univers 08:30:00 08:30:00 SANTIAGO barbosa [facility] 2021-11-20 2021-11-20 Outpatient R EAST, [facility] [id number] Univers 08:30:00 08:30:00 SANTIAGO barbosa [facility] 2021-10-24 2021-10-24 Emergency X ESVIN [facility] ERT [id number] Univers 16:27:00 22:26:00 CHARITY barbosa [facility] 2021-10-24 2021-10-24 Emergency X ESVIN [facility] ERT [id number] Univers 16:27:00 22:26:00 CHARITY barbosa [facility] 2021-10-24 2021-10-24 Emergency Devante Meansnell [facility] 1.2.840. 114 [id number] Univers 16:27:00 22:26:00 Charity Mcallister 350.1.13.10 ity [facility] 4.2.7.2.686 [facility] [id number] [address] 2021-10-23 2021-10-24 [facility] [id number] Univers 20:22:00 02:57:00 CHARITY barbosa [facility] 2021-10-23 2021-10-24 [facility] 1.2.696.249 [id number] Univers 20:22:00 02:57:00 Charity [facility] 350.1.13.10 ity [facility] 4.2.7.2.686 [facility] [id number] [address] 2021-09-07 2021-09-07 Outpatient R SELF, [facility] [id number] Univers 08:00:00 08:00:00 GADIELKEI rodas [facility] 2021-09-07 2021-09-07 Outpatient R SELF, [facility] [id number] Univers 08:00:00 08:00:00 GADIEL ity lela rodas [facility] 2021-08-21 2021-08-21 Outpatient R [facility] [id number] Univers 10:45:00 10:45:00 SANTIAGO barbosa [facility] 2021-08-21 2021-08-21 Reinforcer Santiago Cardenas 1.2.840.1 [id number] Univers 10:45:00 10:45:00 Visit [facility] 02106.1.1 ity of 3.104.2.7 [place] .3.335982 Medica l .8 [place] 2021-08-21 2021-08-21 Office East, 1.2.840.6 [id number] Univers 08:30:00 09:00:00 Visit Santiago 43505.1.1 ity of 3.104.2.7 [place] .3.169851 Medica l .8 [place] 2021-08-21 2021-08-21 Office [facility], UNIVERSIT 1.2.598.194 [id number] Univers 08:30:00 09:00:00 Visit Santiago [facility] 350.1.13.10 i ty of [place] 4[place] [id number] [facility] 089 [place] 2021-08-21 2021-08-21 Outpatient [facility] [id number] Univers 08:30:00 08:30:00 SANTIAGO ity of [facility] 2021-08-21 2021-08-21 Travel 1.2.840.1 1.2.187.310 [id number] Univers 00:00:00 00:00:00 67537.1.1 350.1.13.10 ity of 3.104.2.7 4.2.7.3.698 [place] .3.995389 084.8 Medica l .8 [place] 2021-08-14 2021-08-14 Telephone East, 1.2.840.0 [id number] Univers 00:00:00 00:00:00 Santiago 81910.1.1 ity of 3.104.2.7 [place] .3.796677 Medica l .8 [place] 2021-08-13 2021-08-13 Telephone East, 1.2.840.0 [id number] Univers 00:00:00 00:00:00 Santiago 32338.1.1 ity of 3.104.2.7 [place] .3.132828 [facility] 2021-08-11 2021-08-11 Outpatient R [facility] [id number] Univers 08:00:00 08:00:00 [facility] 2021-08-05 2021-08-05 Inpatient EDUARDO LealCL OUTD [id number] [facility] 05:24:00 05:24:00 Mike 31 [facility] 2021-07-20 2021-07-20 Outpatient R [facility] [id number] [facility] 10:00:00 10:00:00 [facility] 2021-07-14 2021-07-14 Office Pnakaj, UTP 6400 1.2.840.114 [id number] [place] 08:45:00 09:34:[address] 350.1.13.58 Health 9.2.7.2.686 [id number] 1 2021-07-09 2021-07-09 Telephone [facility], UTP 6400 1.2.840.114 [id number] [place] 00:00:00 00:00:[address] 350.1.13.58 Health 9.2.7.2.686 [id number] 1 2021-07-09 2021-07-09 Telephone [facility], UTP 6400 1.2.840.114 [id number] [place] 00:00:00 00:00:[address] 350.1.13.58 Health 9.2.7.2.686 [id number] 1 2021-07-03 2021-07-03 Outpatient R [facility] [id number] Univers 08:00:00 08:00:00 [facility] 2021-06-17 2021-06-17 Inpatient WINTER Leal INTE.02 [id number] [facility] 10:56:00 14:36:00 Mike 47 [facility] 2021-06-15 2021-06-15 [facility] [id number] Univers 10:15:00 11:07:21 GADIEL rodas [facility] 2021-06-15 2021-06-15 Outpatient R SELF, [facility] [id number] Univers 10:15:00 10:15:00 GADIEL rodas [facility] 2021-06-15 2021-06-15 Outpatient R SELF, [facility] [id number] Univers 10:15:00 10:15:00 GADIEL rodas [facility] 2021-06-15 2021-06-15 Orders Doctor 1.2.840.3 [id number] Univers 00:00:00 00:00:00 Only Unassigned, 65249.1.1 ity of [place] 3.104.2.7 [place] .3.856927 Medica l .8 [place] 2021-06-15 2021-06-15 Travel 1.2.840.1 1.2.485.140 [id number] Univers 00:00:00 00:00:00 58459.1.1 350.1.13.10 ity of 3.104.2.7 4.2.7.3.698 [place] .3.955215 084.8 Medica l .8 [place] 2021-06-11 2021-06-11 Refill [facility], UNIVERSIT 1.2.254.062 [id number] Univers 00:00:00 00:00:00 [facility] 350.1.13.10 i ty of [place] 4[place] [id number] [facility] 089 [place] 2021-06-11 2021-06-11 Refill East, 1.2.840.4 [id number] Univers 00:00:00 00:00:00 Ovid 03395.1.1 ity of 3.104.2.7 [place] .3.925005 Medica l .8 Branch 2021-06-05 2021-06-05 Outpatient R EAST, [facility] [id number] Univers 09:00:00 09:00:00 SANTIAGO ity of [facility] 2021-06-02 2021-06-02 Telephone [facility], UNIVERSIT 1.2.840.114 [id number] Univers 00:00:00 00:00:00 Santiago Y HEALTH 350.1.13.10 i ty of [place] 4[place] [id number] [facility] 089 [place] 2021-06-02 2021-06-02 Telephone East, 1.2.840.5 [id number] Univers 00:00:00 00:00:00 Santiago 63843.1.1 ity of 3.104.2.7 [place] .3.382011 Medica l .8 [place] 2021-05-29 2021-05-29 Telephone East, 1.2.840.3 [id number] Univers 00:00:00 00:00:00 Santiago 12676.1.1 ity of 3.104.2.7 [place] .3.704975 Medica l .8 [place] 2021-05-29 2021-05-29 Telephone East, 1.2.840.6 [id number] Univers 00:00:00 00:00:00 Santiago 86124.1.1 ity of 3.104.2.7 [place] .3.562608 Medica l .8 [place] 2021-05-25 2021-05-25 Outpatient R RODO, [facility] [id number] Univers 08:00:00 08:00:00 GADIEL rodas [facility] 2021-04-29 2021-04-29 Outpatient R LALA, [facility] [id number] Univers 08:00:00 08:00:00 NIKOLAI barbosa [facility] 2021-04-28 2021-04-28 Telephone [place], UTP 6400 1.2.840.114 [id number] [place] 00:00:00 00:00:[address] Mar[address]rieamaris [address] 350.1.13.58 Health 9.2.7.2.686 [id number] 2021-04-28 2021-04-28 Telephone Jailyn, 1.2.840.0 [id number] Methodi 00:00:00 00:00:[address] 3.430.2.7 Hospit a .3.667841 l .8 2021-03-31 2021-03-31 Orders Carol Ann, 1.2.840.1 [id number] Methodi 00:00:00 00:00:00 Only Sarai Lieberman 83589.1.1 979 s t 3.430.2.7 Hospit a .3.312372 l .8 2021-03-30 2021-03-30 Outpatient R RODO, [facility] [id number] Univers 08:45:00 08:45:00 GADIEL ity o f [facility] 2021-03-24 2021-03-24 Telephone Jailyn, 1.2.840.8 [id number] Methodi 00:00:00 00:00:[address] 3.430.2.7 Hospit a .3.491463 l .8 2021-02-13 2021-02-13 Telephone Ronald, 1.2.840.8 [id number] [facility] 00:00:00 00:00:00 [place] 79704.1.1 ity of 3.104.2.7 [place] .3.988951 Medica l .8 [place] 2021-01-28 2021-01-28 [facility] [id number] Univers 08:45:00 09:37:00 NIKOLAI ity of [facility] 2021-01-28 2021-01-28 Travel 1.2.840.1 1.2.901.958 [id number] Univers 00:00:00 00:00:00 06585.1.1 350.1.13.10 ity of 3.104.2.7 4[place].7.3.698 [place] .3.568048 084.8 Medica l .8 [place] 2021-01-19 2021-01-19 Telephone Prabhu 1.2.840.1 [id number] [id number] Methodi 00:00:00 00:00:[address] 3.430.2.7 Hospit a .3.328693 l .8 2021-01-04 2021-01-04 Dmitry Bass, 1.2.840.6 [id number] 696 Univers 00:00:00 00:00:00 (Out) Dagoberto H 04042.1.1 ity of 3.104.2.7 [place] .3.305815 Medica l .8 [place] 2021-01-04 2021-01-04 Dmitry Bass, 1.2.840.3 [id number] 696 Univers 00:00:00 00:00:00 (Out) Dagoberto H 56354.1.1 ity of 3.104.2.7 [place] .3.808514 Medica l .8 [place] 2021-01-03 2021-01-03 Dmitry Bass, 1.2.840.6 [id number] 790 Univers 00:00:00 00:00:00 (Out) Dagoberto H 11887.1.1 ity of 3.104.2.7 [place] .3.070705 Medica l .8 [place] 2021-01-03 2021-01-03 Dmitry Bass, 1.2.840.4 [id number] 790 Univers 00:00:00 00:00:00 (Out) Dagoberto H 57891.1.1 ity of 3.104.2.7 [place] .3.569930 Medica l .8 [place] 2021-01-02 2021-01-02 Outpatient R [facility] [id number] Univers 13:40:00 13:40:00 ity of [facility] 2021-01-02 2021-01-02 Laboratory [place] 1.2.840.6 [id number] Univers 12:14:13 12:57:34 Only Lab, [place] 65134.1.1 ity of 3.104.2.7 [place] .3.913278 Medica l .8 [place] 2021-01-02 2021-01-02 Laboratory [place] 1.2.840.6 [id number] Univers 12:14:13 12:57:34 Only Lab, Adc Fam Pob I 00587.1.1 ity of 3.104.2.7 [place] .3.666110 Medica l .8 [place] 2021-01-02 2021-01-02 Travel 1.2.840.1 1.2.071.589 7426 2306 Univers 00:00:00 00:00:00 93454.1.1 350.1.13.10 ity of 3.104.2.[place]3.698 [place] .3.[place] 084.8 Medica l .8 [place] 2021-01-02 2021-01-02 Letter Doctor 1.2.840.1 [id number] 948 Univers 00:00:00 00:00:00 (Out) Unassigned, 35367.1.1 ity of [place] 3.104.2.7 [place] .3.286966 Medica l .8 [place] 2021-01-02 2021-01-02 Letter Doctor 1.2.840.0 [id number] 93215 946 Univers 00:00:00 00:00:00 (Out) Unassigned, 79749.1.1 ity of [place] 3.104.2.7 [place] .3.121369 Medica l .8 [place] 2021-01-02 2021-01-02 Travel 1.2.840.1 1.2.678.276 3083 2306 Univers 00:00:00 00:00:00 88288.1.1 350.1.13.10 ity of 3.104.2.7 [place]7.3.698 [place] .3.456757 084.8 Medica l .8 [place] 2021-01-02 2021-01-02 Letter Doctor 1.2.840.7 [id number] 95490 948 Univers 00:00:00 00:00:00 (Out) Unassigned, 90508.1.1 ity of [place] 3.104.2.7 [place] .3.936646 Medica l .8 [place] 2021-01-02 2021-01-02 Letter Doctor 1.2.840.4 [id number] 79169 946 Univers 00:00:00 00:00:00 (Out) Unassigned, 41066.1.1 ity of [place] 3.104.2.7 [place] .3.166742 Medica l .8 [place] 2020-12-22 2020-12-22 Telephone Beltran, 1.2.840.2 [id number] 862 59547 Univers 00:00:00 00:00:00 Devina R 45924.1.1 i ty of 3.104.2.7 [place] .3.990164 Medica l .8 [place] 2020-12-22 2020-12-22 Telephone Beltran, 1.2.840.7 [id number] 862 11117 Univers 00:00:00 00:00:00 Eligionda R 34725.1.1 i ty of 3.104.2.7 [place] .3.716662 Medica l .8 [place] 2020-12-12 2020-12-12 Office Hematpour, UTP 6400 1.2.840.114 12 [id number] [place] 07:42:02 08:18:[address] 350.1.13.58 Health 9.2.7.2.686 [id number] 1 2020-12-12 2020-12-12 Office Hematpour, UTP 6400 1.2.840.114 12 [id number] 07:42:02 08:18:[address] 350.1.13.58 9.2.7.2.686 467.5573131 1 2020-12-09 2020-12-09 Telephone Carol Ann, 1.2.840.1 [id number] Methodi 00:00:00 00:00:00 Sarai Lieberman 09770.1.1 316 s t 3.430.2.7 Hospit a .3.419101 l .8 2020-12-08 2020-12-08 [facility], 1.2.840.1 [id number] 2100 868431 Methodi 12:35:54 23:59:00 Encounter Eliseo 65815.1.[address] 3.430.2.7 Hospit a .3.975058 l .8 2020-12-08 2020-12-08 [facility], 1.2.840.1 [id number] 78352 00850 Methodi 17:25:00 17:30:[address] 3.430.2.7 Hospit a .3.306679 l .8 2020-12-08 2020-12-08 Office Jailyn, 1.2.840.1 [id number] 00583 83432 Methodi 10:30:00 11:39:56 Visit Ray 72838.1.[address] 3.430.2.7 Hospit a .3.082822 l .8 2020-12-08 2020-12-08 Travel 1.2.840.1 1.2.485.306 2508 001178 Methodi 00:00:00 00:00:[address] 3.430.2.7 0.2.7.3.698 Ho spita .3.448056 084.8 l .8 2020-12-02 2020-12-02 Reinforcer Santiago Cardenas 1.2.840.1 [id number] 316 [id number] [facility] 10:20:06 10:36:19 Visit [facility] 36432.1.1 ity of 3.104.2.7 [place] .3.041786 Medica l .8 [place] 2020-12-02 2020-12-02 Reinforcer Santiago Cardenas 1.2.840.1 [id number] 316 [id number] [facility] 10:20:06 10:36:19 Visit c-Lab 55106.1.1 ity of 3.104.2.7 [place] .3.382802 Medica l .8 [place] 2020-12-02 2020-12-02 Reinforcer [facility] UNIVERSIT 1.2.840.114 8 [id number] 10:20:06 10:36:19 Visit [facility] 350.1.13.10 CLINICS 4.2.7.2.686 647.9022723 316 2020-12-02 2020-12-02 Office Ronald .2.840.3 [id number] 50297 528 [facility] 08:31:37 09:01:37 Visit Santiago 70424.1.1 ity of 3.104.2.7 [place] .3.524132 Medica l .8 [place] 2020-12-02 2020-12-02 [id number] 304 Univers 09:00:00 09:00:00 SANTIAGO ity of [facility] 2020-11-25 2020-11-25 Office Devin, 1.2.840.8 [id number] 03543 865 Univers 11:06:30 11:58:14 Visit Robbi R 74030.1.1 i ty of 3.104.2.7 [place] .3.410647 Medica l .8 [place] 2020-11-25 2020-11-25 Office Beltran, 1.2.840.9 [id number] 60880 865 Univers 11:06:30 11:58:14 Visit Robbi R 05127.1.1 i ty of 3.104.2.7 [place] .3.591933 Medica l .8 [place] 2020-11-25 2020-11-25 [facility] 1.2.840.114 976386 65 11:06:30 11:58:14 Visit Eligiomeredith Hairston MANAGER MARKETING COMMUNICATION 350.1.13.10 REGIONAL 4.2.7.2.686 MATERNAL [id number] & CHILD [address] [place] [address] 2020-11-25 2020-11-25 Outpatient R [facility] [id number] 288 Univers 11:00:00 11:00:00 ity of [facility] 2020-11-25 2020-11-25 Telephone Devin, 1.2.840.2 [id number] 855 25293 Univers 00:00:00 00:00:00 Amarilisluisa R 70938.1.1 i ty of 3.104.2.7 [place] .3.583449 Medica l .8 [place] 2020-11-25 2020-11-25 Refill Ronald, 1.2.840.2 [id number] 53287 592 Univers 00:00:00 00:00:00 Santiago 65899.1.1 ity of 3.104.2.7 [place] .3.808231 Medica l .8 [place] 2020-11-25 2020-11-25 Travel 1.2.840.1 1.2.301.046 8102 0247 Univers 00:00:00 00:00:00 59189.1.1 350.1.13.10 ity of 3.104.2.7 4.[place]7.3.698 [place] .3.856633 084.8 Medica l .8 [place] 2020-11-25 2020-11-25 Orders Doctor 1.2.840.1 [id number] 50031 064 Univers 00:00:00 00:00:00 Only Unassigned, 68861.1.1 ity of [place] 3.104.2.7 [place] .3.620908 Medica l .8 [place] 2020-11-25 2020-11-25 Telephone Beltran, 1.2.840.3 [id number] 855 56461 Univers 00:00:00 00:00:00 Robbi Hairston 05608.1.1 i ty of 3.104.2.7 [place] .3.943158 Medica l .8 [place] 2020-11-25 2020-11-25 Refill [place], 1.2.840.7 [id number] 55411 592 Univers 00:00:00 00:00:00 Santiago 65856.1.1 ity of 3.104.2.7 [place] .3.315410 Medica l .8 [place] 2020-11-25 2020-11-25 Travel 1.2.840.1 1.2.266.386 0393 0247 Univers 00:00:00 00:00:00 78466.1.1 350.1.13.10 ity of 3.104.2.7 4.2.7.3.698 [place] .3.363231 084.8 Medica l .8 [place] 2020-11-25 2020-11-25 Orders Doctor 1.2.840.1 [id number] 064 Univers 00:00:00 00:00:00 Only Unassigned, 25533.1.1 ity of [place] 3.104.2.7 [place] .3.412290 Medica l .8 [place] 2020-11-25 2020-11-25 [facility] 1.2.909.131 8644 4592 00:00:00 00:00:00 [facility] 350.1.13.10 [facility] 4.2.7.2.686 [id number] 089 2020-11-25 2020-11-25 [facility] 1.2.775.971 2667 0821 00:00:00 00:00:00 Robbi Hairston MANAGER MARKETING COMMUNICATION 350.1.13.10 [facility] 4.2.7.2.686 MATERNAL [id number] & CHILD [address] [place] [address] 2020-11-14 2020-11-14 Abstract Rodas, 1.2.840.1 [id number] 45296 62002 Methodi 00:00:00 00:00:[address] 3.430.2.7 Hospit a .3.040440 l .8 2020-11-14 2020-11-14 Telephone Clark 1.2.840.1 [id number] 2100 966948 Methodi 00:00:00 00:00:[address] 3.430.2.7 Hospit a .3.702855 l .8 2020-11-12 2020-11-12 Outpatient [facility] [id number] 323 Univers 08:30:00 08:30:00 [facility] 2020-11-07 2020-11-07 Telephone Agustina Ortiz 6400 1.2.840.11 4 [id number] [place] 00:00:00 00:00:[address] 350.1.13.58 Health 9.2.7.2.686 316.1792802 1 2020-11-07 2020-11-07 Telephone KIMBERLEY Ortiz 6400 1.2.840.114 124 043258 00:00:00 00:00:[address] 350.1.13.58 9.2.7.2.686 [id number] 1 2020-10-31 2020-10-31 Office HematKIMBERLEY hunter 6400 1.2.840.114 12 [id number] [place] 07:54:00 09:45:[address] 350.1.13.58 Health 9.2.7.2.686 441.5684332 1 2020-10-30 2020-10-30 Abstract Rody Maguire UTP 6400 1.2.840.1 14 [id number] [place] 00:00:00 00:00:[address] 350.1.13.58 Health 9.2.7.2.686 [id number] 1 2020-10-29 2020-10-29 Refill [place], 1.2.840.6 [id number] 71229 400 Univers 00:00:00 00:00:00 Santiago 62563.1.1 ity of 3.104.2.7 [place] .3.319062 Medica l .8 [place] 2020-10-29 2020-10-29 Refill [place], 1.2.840.3 [id number] 82848 400 Univers 00:00:00 00:00:00 Santiago 65884.1.1 ity of 3.104.2.7 [place] .3.680019 Medica l .8 [place] 2020-10-27 2020-10-27 Telephone Jailyn, 1.2.840.1 [id number] 21 [id number] Methodi 00:00:00 00:00:[address] 3.430.2.7 Hospit a .3.603086 l .8 2020-10-24 2020-10-24 Telephone Clark, 1.2.840.1 [id number] 2100 164132 Methodi 00:00:00 00:00:[address] 3.430.2.7 Hospit a .3.198157 l .8 2020-10-22 2020-10-22 Outpatient R RODO, [facility] [id number] [facility] 13:00:00 13:00:00 GADIEL rodas [facility] 2020-10-22 2020-10-22 Travel 1.2.840.1 1.2.186.924 1336 3839 Univers 00:00:00 00:00:00 11967.1.1 350.1.13.10 ity of 3.104.2.7 [place]7.3.698 [place] .3.676239 084.8 Medica l .8 [place] 2020-10-22 2020-10-22 Travel 1.2.840.1 1.2.372.760 9220 3839 Univers 00:00:00 00:00:00 56558.1.1 350.1.13.10 ity of 3.104.2.7 4.[place]7.3.698 [place] .3.710221 084.8 Medica l .8 [place] 2020-10-13 2020-10-13 Outpatient Marika KOEHLER, [facility] [id number] Univers 08:45:00 08:45:00 GADIEL rodas [facility] 2020-10-06 2020-10-12 Telemedici Jailyn, 1.2.840.1 [id number] 21 [id number] Methodi 15:30:00 00:08:46 ne Ray 35778.1.[address] 3.430.2.7 Hospit a .3.137435 l .8 2020-09-30 2020-09-30 [facility].2.840.0 [id number] Methodi 00:00:00 00:00:[address] 3.430.2.7 Hospit a .3.852886 l .8 2020-09-21 2020-09-21 Travel 1.2.840.1 1.2.648.109 9832 113149 Methodi 00:00:00 00:00:[address] 3.430.2.7 0.2.7.3.698 Ho spita .3.644117 084.8 l .8 2020-09-06 2020-09-06 [facility] 1.2.840.1 [id number] 99226 43313 Methodi 17:42:30 23:59:[address] 3.430.2.7 Hospit a .3.394833 l .8 2020-09-06 2020-09-06 [facility], 1.2.840.1 [id number] 2099 326936 Methodi 16:50:00 17:41:00 Encounter Ray 47748.1.[address] 3.430.2.7 Hospit a .3.452109 l .8 2020-09-05 2020-09-05 [facility], 1.2.840.1 [id number] 2099 946546 Methodi 09:17:00 19:45:00 Encounter Ray [address]94.1.[address] 3.430.2.7 Hospit a .3.271103 l .8 2020-09-05 2020-09-05 Surgery [facility], 1.2.840.1 [id number] 02867 48820 Methodi 11:30:00 13:15:[address] 3.430.2.7 Hospit a .3.441618 l .8 2020-09-05 2020-09-05 Anesthesia [facility], 1.2.840.1 [id number] 316 [id number] Methodi 11:27:00 12:20:00 Event Kirit 04456.1.1 243 s t V. 3.430.2.7 Hospit a .3.892630 l .8 2020-09-05 2020-09-05 Travel 1.2.840.1 1.2.769.570 5697 295235 Methodi 00:00:00 00:00:[address] 3.430.2.7 0.2.7.3.698 Ho spita .3.090019 084.8 l .8 2020-09-04 2020-09-04 Telephone Carol Ann, 1.2.840.1 [id number] Methodi 00:00:00 00:00:00 Sarai Lieberman 38317.1.1 762 s t 3.430.2.7 Hospit a .3.506158 l .8 2020-09-02 2020-09-02 Telephone Carol Ann, 1.2.840.9 [id number] Methodi 00:00:00 00:00:00 Sarai CorbinChelsie 26974.1.1 344 s t 3.430.2.7 Hospit a .3.147312 l .8 2020-08-29 2020-08-30 Bedded [facility] [id number] 275 [facility] 10:20:00 14:10:00 Outpatient r [place] 00 l [facility] 2020-08-29 2020-08-30 Outpatient HEMATPOUR, [facility] CAR 7500 [facility] 05:20:00 09:10:00 BEVERLY 2020-08-06 2020-08-06 Office [place], 1.2.840.6 [id number] 416 Univers 08:03:23 09:17:49 Visit Santiago 77966.1.1 ity of 3.104.2.7 [place] .3.870689 Medica l .8 [place] 2020-08-06 2020-08-06 Outpatient R [facility] [id number] Univers 08:30:00 08:30:00 SANTIAGO ity of [facility] 2020-07-14 2020-07-14 Outpatient R SELF, [facility] [id number] Univers 09:30:00 09:30:00 GADIEL barbosa o f [facility] 2020-07-14 2020-07-14 Travel 1.2.840.1 1.2.445.800 1333 2575 Univers 00:00:00 00:00:00 73632.1.1 350.1.13.10 ity of 3.104.2.7 4.[place]7.3.698 [place] .3.825804 084.8 Medica l .8 [place] 2020-07-14 2020-07-14 Orders Doctor 1.2.840.0 [id number] 309 Univers 00:00:00 00:00:00 Only Unassigned, 68929.1.1 ity of [place] 3.104.2.7 [place] .3.500843 Medica l .8 [place] 2020-06-16 2020-06-16 Outpatient R SELF, [facility] [id number] Univers 08:00:00 08:00:00 GADIEL barbosa o f [facility] 2020-06-06 2020-06-06 Telephone East, 1.2.840.3 [id number] 809 [id number] Univers 00:00:00 00:00:00 Santiago 37602.1.1 ity of 3.104.2.7 [place] .3.978654 Medica l .8 [place] 2020-06-04 2020-06-04 Reinforcer Santiago Cardenas 1.2.840.1 [id number] Univers 09:31:58 09:40:12 Visit [facility] 35687.1.1 ity of 3.104.2.7 [place] .3.488633 Medica l .8 [place] 2020-06-04 2020-06-04 Office [place], [facility] 1.2.925.958 9869 9729 Univers 08:13:41 09:28:25 Visit Santiago [facility] 350.1.13.10 i ty of CLINICS 4.2.7.2.686 [place] 634.4471999 [facility] porfirio 089 [place] 2020-06-04 2020-06-04 Outpatient R EAST, [facility] [id number] Univers 08:30:00 08:30:00 SANTIAGO barbosa of [facility] 2020-06-04 2020-06-04 Orders Doctor 1.2.840.3 [id number] 079 Univers 00:00:00 00:00:00 Only Unassigned, 91822.1.1 ity of [place] 3.104.2.7 [place] .3.587363 Medica l .8 [place] 2020-05-19 2020-05-19 Telephone [place], 1.2.840.3 [id number] 804 [id number] Univers 00:00:00 00:00:00 Santiago 32215.1.1 ity of 3.104.2.7 [place] .3.588610 Medica l .8 [place] 2020-04-24 2020-04-24 Telephone [place], 1.2.840.1 [id number] 799 [id number] Univers 00:00:00 00:00:00 Santiago 12055.1.1 ity of 3.104.2.7 [place] .3.421240 Medica l .8 [place] 2020-04-14 2020-04-14 Outpatient R EAST, [facility] [id number] Univers 09:00:00 09:00:00 SANTIAGO ity of [facility] 2020-04-14 2020-04-14 Telephone [place], 1.2.840.3 [id number] 797 [id number] Univers 00:00:00 00:00:00 Santiago 40658.1.1 ity of 3.104.2.7 [place] .3.931192 Medica l .8 [place] 2020-03-31 2020-03-31 Outpatient R EAST, [facility] [id number] Univers 08:30:00 08:30:00 SANTIAGO ity of [facility] 2020-03-03 2020-03-03 Outpatient R SELF, [facility] [id number] Univers 08:00:00 08:00:00 GADIEL barbosa o f [facility] 2020-03-03 2020-03-03 Outpatient R SELF, [facility] [id number] Univers 08:00:00 08:00:00 GADIEL maciely o f [facility] 2020-03-03 2020-03-03 Travel 1.2.840.1 1.2.787.425 2009 5480 Univers 00:00:00 00:00:00 70732.1.1 350.1.13.10 ity of 3.104.2.7 4.2.7.3.698 [place] .3.287430 084.8 Medica l .8 [place] 2020-02-06 2020-02-06 Telephone [place], 1.2.840.1 [id number] 781 47035 Univers 00:00:00 00:00:00 Santiago 05404.1.1 ity of 3.104.2.7 [place] .3.847614 Medica l .8 [place] 2020-01-26 2020-01-26 Emergency Caridad, 1.2.840.2 [id number] 779 46594 Univers 10:03:00 13:05:00 Cynhoward 89008.1.1 ity of 3.104.2.7 [place] .3.889690 Medica l .8 [place] 2020-01-26 2020-01-26 Travel 1.2.840.1 1.2.574.041 1237 0120 Univers 00:00:00 00:00:00 89753.1.1 350.1.13.10 ity of 3.104.2.7 4.[place].7.3.698 [place] .3.962694 084.8 Medica l .8 [place] 2020-01-25 2020-01-25 Outpatient R EAST, [facility] [id number] Univers 08:30:00 08:30:00 SANTIAGO ity [facility] 2020-01-25 2020-01-25 Telemedici [place], 1.2.840.8 [id number] Univers 07:36:49 08:06:49 ne Visit Santiago 63279.1.1 ity of 3.104.2.7 [place] .3.863246 Medica l .8 [place] 2020-01-16 2020-01-16 [facility] [id number] Univers 08:00:00 08:00:00 SANTIAGO ity [facility] 2020-01-16 2020-01-16 Telephone East, 1.2.840.8 [id number] Univers 00:00:00 00:00:00 Santiago 85566.1.1 ity of 3.104.2.7 [place] .3.827050 Medica l .8 [place] 2020-01-14 2020-01-14 Outpatient R SELF, [facility] [id number] Univers 08:00:00 08:00:00 GADIEL rodas [facility] 2019-12-31 2019-12-31 Outpatient R SELF, [facility] [id number] Univers 08:45:00 08:45:00 GADIEL maciely o f [facility] 2019-10-17 2019-10-17 Outpatient R [facility] [id number] Univers 08:30:00 08:30:00 SANTIAGO ity [facility] 2019-10-12 2019-10-12 Outpatient R [facility] [id number] Univers 13:00:00 13:00:00 SANTIAGO ity [facility] 2019-10-12 2019-10-12 Telemedici [place], 1.2.840.5 [id number] Univers 07:38:30 08:08:30 ne Visit Santiago 59721.1.1 ity of 3.104.2.7 [place] .3.983767 Medica l .8 [place] 2019-10-08 2019-10-08 Outpatient R SELF, [facility] [id number] Univers 10:15:00 10:15:00 GADIEL ity o f [facility] 2019-10-03 2019-10-03 Case Xiao, 1.2.840.7 [id number] Univers 00:00:00 00:00:00 Management Michael Corbin 88147.1.1 i ty of 3.104.2.7 [place] .3.972785 Medica l .8 [place] 2019-09-27 2019-09-27 Telephone East, 1.2.840.4 [id number] 755 [id number] Univers 00:00:00 00:00:00 Santiago 94366.1.1 ity of 3.104.2.7 [place] .3.014873 Medica l .8 [place] 2019-09-04 2019-09-04 Refill [place], 1.2.840.5 [id number] 04918 497 Univers 00:00:00 00:00:00 Santiago 55091.1.1 ity of 3.104.2.7 [place] .3.723908 Medica l .8 [place] 2019-07-24 2019-07-24 Outpatient R [facility] [id number] Univers 08:30:00 08:30:00 SANTIAGO ity of [facility] 2019-07-17 2019-07-17 Outpatient R EAST, [facility] [id number] Univers 10:00:00 10:00:00 SANTIAGO ity [facility] 2019-06-15 2019-06-15 Telephone East, 1.2.840.2 [id number] [id number] Univers 00:00:00 00:00:00 Santiago 60443.1.1 ity of 3.104.2.7 [place] .3.320589 Medica l .8 [place] 2019-06-13 2019-06-13 Telephone Team, [facility] 1.2.840.5 [id number] Univers 00:00:00 00:00:00 Health 08642.1.1 ity of [place].2.7 [place] .3.811592 Medica l .8 [place] 2019-05-10 2019-05-10 Refill Ronald, 1.2.840.4 [id number] 022 Univers 00:00:00 00:00:00 Santiago 69151.1.1 ity of 3.104.2.7 [place] .3.339663 Medica l .8 [place] 2019-05-09 2019-05-09 Refill Ronald, 1.2.840.4 [id number] Univers 00:00:00 00:00:00 Santiago 26278.1.1 ity of 3.104.2.7 [place] .3.534221 Medica l .[address] [place] [address] 2019-04-30 2019-04-30 Outpatient R RODO, [facility] [id number] Univers 10:15:00 10:33:05 GADIEL ity o f [facility] 2019-04-18 2019-04-18 Reinforcer Santiago Cardenas 1.2.840.1 [id number] Univers 10:00:39 10:44:31 Visit [facility] 96006.1.1 ity of 3.104.2.7 [place] .3.899921 Medica l .[address] [place] [address] 2019-04-18 2019-04-18 Outpatient R RONALD [facility] [id number] Univers 10:00:00 10:44:31 SANTIAGO ity of [facility] 2019-04-18 2019-04-18 Office Ronald, 1.2.840.7 [id number] 005 Univers 08:27:44 09:53:27 Visit Santiago 82927.1.1 ity of 3.104.2.7 [place] .3.553252 Medica l .8 [place] 2019-04-18 2019-04-18 Orders Doctor 1.2.840.5 [id number] [id number] Univers 00:00:00 00:00:00 Only Unassigned, 86375.1.1 ity of [place] 3.104.2.7 [place] .3.101937 Medica l .8 [place] 2019-04-11 2019-04-11 Refill East, 1.2.840.9 [id number] 033 Univers 00:00:00 00:00:00 Santiago 51014.1.1 ity of 3.104.2.7 [place] .3.665376 Medica l .8 [place] 2019-04-09 2019-04-09 Refill East, 1.2.840.1 [id number] 89850 546 Univers 00:00:00 00:00:00 Santiago 64087.1.1 ity of 3.104.2.7 [place] .3.039902 Medica l .8 [place] 2019-04-03 2019-04-03 Telephone Team, [facility] 1.2.840.6 [id number] Univers 00:00:00 00:00:00 Health 04946.1.1 ity of [place].104.2.7 [place] .3.604004 Medica l .8 [place] 2019-03-27 2019-03-27 Telephone Self, 1.2.840.5 [id number] 723 [id number] Univers 00:00:00 00:00:00 Gadiel 78844.1.1 ity of 3.104.2.7 [place] .3.742310 Medica l .8 [place] 2019-01-17 2019-01-17 Office Ronald, 1.2.840.7 [id number] Univers 07:37:21 10:32:51 Visit Santiago 22602.1.1 ity of 3.104.2.7 [place] .3.124644 Medica l .8 [place] 2019-01-04 2019-01-12 Office Eveline Hansen 1.2.840.3 [id number] Univers 11:19:32 11:08:05 Visit Mariela 09513.1.1 ity of 3.104.2.7 [place] .3.446234 Medica l .8 [place] 2019-01-10 2019-01-10 Telephone Gitejay, 1.2.840.0 [id number] Univers 00:00:00 00:00:00 Eladio Inman 28748.1.1 ity of 3.104.2.7 [place] .3.306166 Medica l .8 [facility] 2018-12-18 2018-12-18 Office Geraldine, 1.2.840.3 [id number] Univers 08:48:45 09:13:43 Visit Leyda 39113.1.1 it y of 3.104.2.7 [place] .3.607225 Medica l .8 [facility] 2018-10-30 2018-10-30 Telephone East, 1.2.840.2 [id number] Univers 00:00:00 00:00:00 [place] 97353.1.1 ity of 3.104.2.7 [place] .3.972758 Medica l .8 [facility] 2018-10-23 2018-10-23 Orders Doctor 1.2.840.3 [id number] Univers 00:00:00 00:00:00 Only Unassigned, 69422.1.1 ity of [place] 3.104.2.7 [place] .3.318851 Medica l .8 [facility] 2018-10-23 2018-10-23 Nurse Selvin, 1.2.840.6 [id number] Univers 00:00:00 00:00:00 Triage Stefanie 45385.1.1 ity of 3.104.2.7 [place] .3.146418 Medica l .8 [facility] 2018-10-23 2018-10-23 Telephone Self, 1.2.840.3 [id number] Univers 00:00:00 00:00:00 Gadiel 61365.1.1 ity of 3.104.2.7 [place] .3.668918 Medica l .8 [facility] 2018-10-20 2018-10-20 Telephone Self, 1.2.840.9 [id number] Univers 00:00:00 00:00:00 Gadiel 78446.1.1 ity of 3.104.2.7 [place] .3.472600 Medica l .8 [place] Results Test Description Test Time Test Comments Results Result Comments Source COMP. METABOLIC PANEL 22201 2022-05-06 22:42:55 Test Item Value Reference Range Interpretation Comme nts NA (test code = 6924631093) 137 mmol/L 135-145 K (test code = 4157007324) 3.2 mmol/L 3.5-5.0 L CL (test code = 6751798976) 100 mmol/L 98-108 CO2 TOTAL (test code = 4725720656) 23 mmol/L 23-31 AGAP (test code = 1814520043) 2-16 BUN (test code = 5428519870) 41 mg/dL 7-23 H GLUCOSE (test code = 9170296472) 98 mg/dL 70-110 CREATININE (test code = 1.55 mg/dL 0.50-1.04 H 0918332485) TOTAL BILI (test code = 0.8 mg/dL 0.1-1.5 6949867029) CALCIUM (test code = 8487384723) 8.3 mg/dL 8.6-10.6 L T PROTEIN (test code = 2504076369) 6.9 g/dL 6.3-8.2 ALBUMIN (test code = 4115437897) 3.9 g/dL 3.5-5.0 ALK PHOS (test code = 8159951425) 89 U/L 34-122 ALTv (test code = 1742-6) 101 U/L 5-35 H AST(SGOT) (test code = 1228931456) 203 U/L 13-40 H eGFR (test code = 8540361021) mL/min/1.73m2 KYLE (test code = KYLE) Association [...] tests). Lab Interpretation (test code = Abnormal 36822-5) [facility] WITH [id number] 22:33:52 Test Item Value Reference Range Interpretation Comments WBC (test code = See_Comment L [Automated 9090-2) message] The sy stem which [...] RDW-SD (test code = 46.3 fL 39.0-49.9 55358-6) RDW-CV (test code = 13.5 % 12.0-15.5 788-0) PLT (test code = See_Comment L [Automated 777-3) message] The sy stem which generated this result transmitted reference range : 166 - 358 10*3/ ?L. The reference r abbey was not used to interpret this result as normal/abnormal . MPV (test code = 9.5 fL 9.5-12.9 92829-4) NRBC/100 WBC (test See_Comment [Automat ed code = 1583623811) message] The system which generated this result transmitted reference range : 0.0 - 10.0 /100 WBCs. The refer ence range was not u sed to interpret th is result as normal/abnormal . NRBC x10^3 (test code See_Comment [Auto mated = 9756146129) message] The s ystem which generated this result transmitted reference range : 10*3/?L. The reference range was not used to interpret this result as normal/abnormal . GRAN MAT (NEUT) % 58.3 % (test code = 770-8) IMM GRAN % (test code 0.80 % = 6997822664) LYMPH % (test code = 28.1 % 736-9) MONO % (test code = 12.0 % 5905-5) EOS % (test code = 0.5 % 713-8) BASO % (test code = 0.3 % 706-2) GRAN MAT x10^3(ANC) 2.29 10*3/uL 1.88-7.09 (test code = 0574138529) IMM GRAN x10^3 (test 0.03 10*3/uL 0.00-0.06 code = 8741673711) LYMPH x10^3 (test code 1.10 10*3/uL 1.32-3.29 L = 731-0) MONO x10^3 (test code 0.47 10*3/uL 0.33-0.92 = 742-7) EOS x10^3 (test code = 0.03-0.39 L 711-2) BASO x10^3 (test code 0.01-0.07 = 704-7) Lab Interpretation Abnormal (test code = 02925-5) [facility] METABOLIC PANEL (NA, K, CL, CO2, GLUCOSE, BUN, CREATININE, CA)2022-04-22 21:43:42 Test Item Value Reference Range Interpretation Comments NA (test code = 142 mmol/L 135-145 4665433817) K (test code = 3.5 mmol/L 3.5-5.0 7161991439) CL (test code = 106 mmol/L 98-108 1901075581) CO2 TOTAL (test code = 26 mmol/L 23-31 4514694049) AGAP (test code = 2-16 7747828695) BUN (test code = 29 mg/dL 7-23 H 5738374537) GLUCOSE (test code = 84 mg/dL 70-110 8382022726) CREATININE (test code = 1.16 mg/dL 0.50-1.04 H 3484966427) CALCIUM (test code = 8.2 mg/dL 8.6-10.6 L 3568015702) eGFR (test code = mL/min/1.73m2 9330301580) KYLE (test code = KYLE) Association of [...] tests). Lab Interpretation Abnormal (test code = 64447-6) [facility] WITH [id number] 21:33:01 Test Item Value Reference Range Interpretation [...] (test code = 50.7 fL 39.0-49.9 H 57072-1) RDW-CV (test code = 14.6 % 12.0-15.5 788-0) PLT (test code = See_Comment L [Automated 777-3) message] The sy stem which generated this result transmitted reference range : 166 - 358 10*3/ ?L. The reference r abbey was not used to interpret this result as normal/abnormal . MPV (test code = 8.8 fL 9.5-12.9 L 14670-2) NRBC/100 WBC (test See_Comment [Automat ed code = 3953873585) message] The system which generated this result transmitted reference range : 0.0 - 10.0 /100 WBCs. The refer ence range was not u sed to interpret th is result as normal/abnormal . NRBC x10^3 (test code See_Comment [Auto mated = 3300374783) message] The s ystem which generated this result transmitted reference range : 10*3/?L. The reference range was not used to interpret this result as normal/abnormal . GRAN MAT (NEUT) % 70.9 % (test code = 770-8) IMM GRAN % (test code 0.50 % = 0249986478) LYMPH % (test code = 17.4 % 736-9) MONO % (test code = 9.0 % 5905-5) EOS % (test code = 1.7 % 713-8) BASO % (test code = 0.5 % 706-2) GRAN MAT x10^3(ANC) 4.60 10*3/uL 1.88-7.09 (test code = 8213016881) IMM GRAN x10^3 (test 0.03 10*3/uL 0.00-0.06 code = 7583331307) LYMPH x10^3 (test code 1.13 10*3/uL 1.32-3.29 L = 731-0) MONO x10^3 (test code 0.58 10*3/uL 0.33-0.92 = 742-7) EOS x10^3 (test code = 0.11 10*3/uL 0.03-0.39 711-2) BASO x10^3 (test code 0.03 10*3/uL 0.01-0.07 = 704-7) Lab Interpretation Abnormal (test code = 59011-4) [facility] [id number] 06:01:07 Test Item Value Reference Range Interpretation Comments Blood Culture-Aerobic No organisms No growth Previo us (test code = 28870-9) isolated prelim inary verified result was Culture [...] Culture-Anaerobic isolated preliminar y (test code = 79672-5) verifi ed result was Culture In Progress [...] CDT Lab Interpretation Normal (test code = 48346-1) [facility] CULTURE [id number] 06:01:07 Test Item Value Reference Range Interpretation Comments Blood Culture-Aerobic No organisms No growth Previo us (test code = 66764-2) isolated prelim inary verified result was Culture [...] Culture-Anaerobic isolated preliminar y (test code = 46187-5) verifi ed result was Culture In Progress [...] CDT Lab Interpretation Normal (test code = 30360-4) [facility] CULTURE [id number] 06:01:07 Test Item Value Reference Range Interpretation Comments Blood Culture-Aerobic No organisms No growth Previo us (test code = 10154-8) isolated prelim inary verified result was Culture [...] Culture-Anaerobic isolated preliminar y (test code = 74282-5) verifi ed result was Culture In Progress [...] CDT Lab Interpretation Normal (test code = 27668-3) [facility] [id number] 10:49:10 Test Item Value Reference Range Interpretation Comments NT-proBNP (test code 2660 pg/mL See_Comment H [Autom ated = 2099193577) message] The system which generated this result transmitted reference range : <=125. The reference range was not used to interpret this result as normal/abnormal . KYLE (test code = KYLE) Biotin has been reported to cause a negative bias, interpret results relative to patient's use of biotin. Lab Interpretation Abnormal (test code = 03118-3) [facility] [id number] 10:49:10 Test Item Value Reference Range Interpretation Comments NT-proBNP (test code 2660 pg/mL See_Comment H [Autom ated = 8509379913) message] The system which generated this result transmitted reference range : <=125. The reference range was not used to interpret this result as normal/abnormal . KYLE (test code = KYLE) Biotin has been reported to cause a negative bias, interpret results relative to patient's use of biotin. Lab Interpretation Abnormal (test code = 65436-0) [facility] METABOLIC PANEL (NA, K, CL, CO2, GLUCOSE, BUN, CREATININE, CA)2022-02-15 10:44:07 Test Item Value Reference Range Interpretation Comments NA (test code = 134 mmol/L 135-145 L 5818884740) K (test code = 3.2 mmol/L 3.5-5 L 9295507318) CL (test code = 98 mmol/L 98-108 7987157655) CO2 TOTAL (test code = 27 mmol/L 23-31 6956929699) AGAP (test code = 2-16 4314937200) BUN (test code = 19 mg/dL 7-23 0291826317) GLUCOSE (test code = 102 mg/dL 70-110 5970131468) CREATININE (test code = 0.95 mg/dL 0.5-1.04 7399117176) CALCIUM (test code = 8.5 mg/dL 8.6-10.6 L 1752746218) eGFR (test code = mL/min/1.73m2 4089257220) KYLE (test code = KYLE) Association of [...] tests). Lab Interpretation Abnormal (test code = 54711-8) [facility]2022-09-26 10:44:07 Test Item Value Reference Range Interpretation Comments MAGNESIUM (test code = 0153754907) 1.8 mg/dL 1.7-2.4 Lab Interpretation (test code = Normal 83361-1) [facility]2022-09-26 10:44:07 Test Item Value Reference Range Interpretation Comments MAGNESIUM (test code = 1000873040) 1.8 mg/dL 1.7-2.4 Lab Interpretation (test code = Normal 27928-1) [facility] (NA, K, CL, CO2, GLUCOSE, BUN, CREATININE, CA)2022-02-15 10:44:07 Test Item Value Reference Range Interpretation Comments NA (test code = 134 mmol/L 135-145 L 9095243866) K (test code = 3.2 mmol/L 3.5-5.0 L 5119559345) CL (test code = 98 mmol/L 98-108 4228030147) CO2 TOTAL (test code = 27 mmol/L 23-31 4061549454) AGAP (test code = 2-16 1501850639) BUN (test code = 19 mg/dL 7-23 1743453328) GLUCOSE (test code = 102 mg/dL 70-110 9938730755) CREATININE (test code = 0.95 mg/dL 0.50-1.04 0709611522) CALCIUM (test code = 8.5 mg/dL 8.6-10.6 L 2207642689) eGFR (test code = mL/min/1.73m2 1496554212) KYLE (test code = KYLE) Association of [...] tests). Lab Interpretation Abnormal (test code = 43396-4) [facility] WITH [id number] 10:12:06 Test Item Value Reference Range Interpretation [...] RDW-SD (test code = 47.8 fL 39-49.9 81949-7) RDW-CV (test code = 15.2 % 12-15.5 788-0) PLT (test code = See_Comment L [Automated 777-3) message] The sy stem which generated this result transmitted reference range : 166 - 358 10*3/ ?L. The reference r abbey was not used to interpret this result as normal/abnormal . MPV (test code = 8.9 fL 9.5-12.9 L 96711-8) NRBC/100 WBC (test See_Comment [Automat ed code = 7028270607) message] The system which generated this result transmitted reference range : 0.0 - 10.0 /100 WBCs. The refer ence range was not u sed to interpret th is result as normal/abnormal . NRBC x10^3 (test code See_Comment [Auto mated = 9887329749) message] The s ystem which generated this result transmitted reference range : 10*3/?L. The reference range was not used to interpret this result as normal/abnormal . GRAN MAT (NEUT) % 65.9 % (test code = 770-8) IMM GRAN % (test code 0.30 % = 6776768694) LYMPH % (test code = 21.0 % 736-9) MONO % (test code = 10.1 % 5905-5) EOS % (test code = 2.4 % 713-8) BASO % (test code = 0.3 % 706-2) GRAN MAT x10^3(ANC) 2.49 10*3/uL 1.88-7.09 (test code = 8685142693) IMM GRAN x10^3 (test 0-0.06 code = 8778198665) LYMPH x10^3 (test code 0.79 10*3/uL 1.32-3.29 L = 731-0) MONO x10^3 (test code 0.38 10*3/uL 0.33-0.92 = 742-7) EOS x10^3 (test code = 0.09 10*3/uL 0.03-0.39 711-2) BASO x10^3 (test code 0.01-0.07 = 704-7) Lab Interpretation Abnormal (test code = 58855-3) [facility] WITH [id number] 10:12:06 Test Item Value Reference Range Interpretation Comments WBC (test code = See_Comment L [Automated 7490-2) message] The sy stem which generated this result transmitted reference range : 4.30 - 11.10 10*3/?L. The reference range was not used to interpret this result as normal/abnormal . RBC (test code = See_Comment L [Automated 579-8) message] The sy stem which generated this [...] RDW-SD (test code = 47.8 fL 39.0-49.9 77848-8) RDW-CV (test code = 15.2 % 12.0-15.5 788-0) PLT (test code = See_Comment L [Automated 777-3) message] The sy stem which generated this result transmitted reference range : 166 - 358 10*3/ ?L. The reference r abbey was not used to interpret this result as normal/abnormal . MPV (test code = 8.9 fL 9.5-12.9 L 31840-0) NRBC/100 WBC (test See_Comment [Automat ed code = 9179871094) message] The system which generated this result transmitted reference range : 0.0 - 10.0 /100 WBCs. The refer ence range was not u sed to interpret th is result as normal/abnormal . NRBC x10^3 (test code See_Comment [Auto mated = 0751637266) message] The s ystem which generated this result transmitted reference range : 10*3/?L. The reference range was not used to interpret this result as normal/abnormal . GRAN MAT (NEUT) % 65.9 % (test code = 770-8) IMM GRAN % (test code 0.30 % = 1299323782) LYMPH % (test code = 21.0 % 736-9) MONO % (test code = 10.1 % 5905-5) EOS % (test code = 2.4 % 713-8) BASO % (test code = 0.3 % 706-2) GRAN MAT x10^3(ANC) 2.49 10*3/uL 1.88-7.09 (test code = 0341651436) IMM GRAN x10^3 (test 0.00-0.06 code = 1084906226) LYMPH x10^3 (test code 0.79 10*3/uL 1.32-3.29 L = 731-0) MONO x10^3 (test code 0.38 10*3/uL 0.33-0.92 = 742-7) EOS x10^3 (test code = 0.09 10*3/uL 0.03-0.39 711-2) BASO x10^3 (test code 0.01-0.07 = 704-7) Lab Interpretation Abnormal (test code = 10978-7) [facility] WITH [id number] 11:18:28 Test Item Value Reference Range Interpretation [...] RDW-SD (test code = 49.5 fL 39-49.9 64549-2) RDW-CV (test code = 15.5 % 12-15.5 788-0) PLT (test code = See_Comment L [Automated 777-3) message] The sy stem which generated this result transmitted reference range : 166 - 358 10*3/ ?L. The reference r abbey was not used to interpret this result as normal/abnormal . MPV (test code = 11.4 fL 9.5-12.9 86643-4) IPF % (test code = 8.7 % 1.3-7.7 H Platelet count 8057836494) measured by fluorescence method. NRBC/100 WBC (test See_Comment [Automat ed code = 9031735860) message] The system which generated this result transmitted reference range : 0.0 - 10.0 /100 WBCs. The refer ence range was not u sed to interpret th is result as normal/abnormal . NRBC x10^3 (test code See_Comment [Auto mated = 3512229664) message] The s ystem which generated this result transmitted reference range : 10*3/?L. The reference range was not used to interpret this result as normal/abnormal . GRAN MAT (NEUT) % 62.0 % (test code = 770-8) IMM GRAN % (test code 0.80 % = 4003063641) LYMPH % (test code = 22.2 % 736-9) MONO % (test code = 9.6 % 5905-5) EOS % (test code = 5.1 % 713-8) BASO % (test code = 0.3 % 706-2) GRAN MAT x10^3(ANC) 2.21 10*3/uL 1.88-7.09 (test code = 4643255466) IMM GRAN x10^3 (test 0.03 10*3/uL 0-0.06 code = 4795879717) LYMPH x10^3 (test code 0.79 10*3/uL 1.32-3.29 L = 731-0) MONO x10^3 (test code 0.34 10*3/uL 0.33-0.92 = 742-7) EOS x10^3 (test code = 0.18 10*3/uL 0.03-0.39 711-2) BASO x10^3 (test code 0.01-0.07 = 704-7) POLYCHROMASIA (test 2+ See_Comment [Automa arpit code = 37811-7) message] The system which generated this result [...] . Lab Interpretation Abnormal (test code = 93086-2) [facility] METABOLIC PANEL (NA, K, CL, CO2, GLUCOSE, BUN, CREATININE, CA)2022-02-13 10:39:07 Test Item Value Reference Range Interpretation Comments NA (test code = 136 mmol/L 135-145 6431180397) K (test code = 4.1 mmol/L 3.5-5 7287233948) CL (test code = 102 mmol/L 98-108 5228332912) CO2 TOTAL (test code = 27 mmol/L 23-31 9797318655) AGAP (test code = 2-16 3696216499) BUN (test code = 22 mg/dL 7-23 2594127507) GLUCOSE (test code = 94 mg/dL 70-110 5189913265) CREATININE (test code = 0.94 mg/dL 0.5-1.04 9035044100) CALCIUM (test code = 8.1 mg/dL 8.6-10.6 L 2418512034) eGFR (test code = mL/min/1.73m2 4727161709) KYLE (test code = KYLE) Association of [...] tests). Lab Interpretation Abnormal (test code = 88622-3) [facility] 01:50:10 Test Item Value Reference Range Interpretation Comments Height (test code = in 6374184845) Weight (test code = lbs 5478342566) Systolic BP (test code mmHg = 2262187716) Diastolic BP (test code mmHg = 6468942538) Heart Rate (test code = bpm 6518608055) BSA (test code = 1.85 m2 0593110580) IVS (test code = 1.22 cm 4622877973) Interventricular Septum 1.22 cm Diastolic Thickness by 2D (test code = 8915028) LVIDD (test code = 5.00 cm 0362043203) Left Ventricular End 117.9 mL Diastolic Volume by Teichholz Method (test code = 9866880) LVPWD (test code = 1.22 cm 5161603238) PW (test code = 1.22 cm 0.6-1.5 6092843725) EF(Teich) (test code = 74.60 % 8674080551) LVIDS (test code = 2.80 cm 1709733808) Left Ventricular End 29.9 mL Systolic Volume by Teichholz Method (test code = 5982729) FS (test code = 44 % 2931902851) EF - 2D (test code = 74.60 % 59281091) LVOT diameter (test 2.16 cm code = 4497103411) LVOT area (test code = 3.70 cm2 0124136268) Ao root diam (test code 3.40 cm = 3243287476) Aortic root (test code 3.4 cm = 0724275103) Ao root annulus (test 3.4 cm code = 0439817827) LA size (test code = 3.4 cm 1591631661) TR Peak Spencer (test code 330.0 cm/s = 8027196528) Triscuspid Valve mmHg Regurgitation Peak Gradient (test code = 2789735535) PV REGURGITATION PEAK mmHg GRADIENT (test code = 9398350427) PI dec slope (test code 137.20 cm/s2 = 4908123950) LAV(MOD-sp4) (test code 102.90 mL = 6367138972) MV Peak E Spencer (test 84.1 cm/s code = 2820725225) MV Peak A Spencer (test 40.1 cm/s code = 6112409673) E/A ratio (test code = ratio 1843002756) MV valve area p 1/2 3.70 cm2 method (test code = 3183862353) MV dec slope (test code 413.00 cm/s2 = 8773518725) MV P1/2t max spencer (test 83.70 cm/s code = 5681982498) MV Prop V (test code = 41.80 cm/s 0873859720) Tapse (test code = 1.83 cm 1279916512) LVOT stroke volume 96.90 cm3 (test code = 4071540468) LVOT peak spencer (test 125.5 cm/s code = 4753574355) LVOT mn grad (test code mmHg = 8143538745) AV LVOT peak gradient mmHg (test code = 2847563077) LVOT peak VTI (test 26.4 cm code = 9543946371) LV V1 mean (test code = 78.10 cm/s 1163662066) Aortic valve mean 103.7 cm/s velocity (test code = 9851955603) Ao peak spencer (test code 165.6 cm/s = 4751822558) Ao VTI (test code = 37.2 cm 5238392694) AV area by cont VTI 2.6 cm2 (test code = 4465109193) AV area peak spencer (test 2.8 cm2 code = 7608581136) Ao max PG (test code = 11.00 mm[Hg] 9624943803) AV peak gradient (test mmHg code = 8979509490) AV valve area (test 2.60 cm2 code = 6435323773) AV mean gradient (test mmHg code = 5977888400) LA Volume Index (BP) 55.2 mL/m2 (test code = 2993966310) LA volume (BP) (test 102.1 mL code = 1710770823) LAV(MOD-sp2) (test code 86.10 mL = 7022460923) A2C EF (test code = 61.20 % 5089965007) EF(sp2-el) (test code = 61.60 % 7243465472) SV(MOD-sp2) (test code 47.10 mL = 5556890769) LV Diastolic Volume 70.7 mL (BP) (test code = 8313124459) A4C EF (test code = 53.00 % 9364471052) EF(MOD-bp) (test code = 56.70 % 7764120132) EF(sp4-el) (test code = 53.90 % 4928546699) LV Systolic Volume (BP) 30.6 mL (test code = 2058531888) SV(MOD-bp) (test code = 40.10 mL 5037720047) SV(MOD-sp4) (test code 32.40 mL = 4011095496) SV(sp4-el) (test code = 33.10 mL 2955487305) EF (test code = 8995015956) Left Ventricular Stroke 40.1 mL Volume by 2-D Biplane-MOD (test code = 2470887) LV Diastolic Volume 38.2 mL/m2 Index (BP) (test code = 4267034650) LV Systolic Volume 16.5 mL/m2 Index (BP) (test code = 7442590540) Radiology Study observation (narrative) (test code = 60574-6) KYLE (test code = KYLE) ?Left?Ventricle: Left [...] left ventricular wall motion is normal. [facility] [id number] 05:45:01 Test Item Value Reference Interpretation Comments Range TROPONIN I (test See_Comment [Automated code = 2157724261) message] The system which generated this result [...] biotin. Lab Interpretation Normal (test code = 84366-4) [facility] [id number] 05:41:40 Test Item Value Reference Range Interpretation Comments NT-proBNP (test code 4250 pg/mL See_Comment H [Autom ated = 5370802255) message] The system which generated this result transmitted reference range : <=125. The reference range was not used to interpret this result as normal/abnormal . KYLE (test code = KYLE) Biotin has been reported to cause a negative bias, interpret results relative to patient's use of biotin. Lab Interpretation Abnormal (test code = 28588-6) [facility] [id number] 05:35:21 Test Item Value Reference Range Interpretation [...] seconds. Lab Interpretation Normal (test code = 30012-0) [facility] [id number] 05:35:21 Test Item Value Reference Range Interpretation [...] seconds. Lab Interpretation Normal (test code = 52265-0) [facility] / [id number] 05:33:21 Test Item Value Reference Range Interpretation [...] tions. Lab Interpretation (test Normal code = 06444-2) [facility]. METABOLIC PANEL (79860)2022-02-11 05:33:21 Test Item Value Reference Range Interpretation Comments NA (test code = 137 mmol/L 135-145 7735526781) K (test code = 4.3 mmol/L 3.5-5 4916851742) CL (test code = 103 mmol/L 98-108 7547690268) CO2 TOTAL (test code = 25 mmol/L 23-31 0356099981) AGAP (test code = 2-16 9232262508) BUN (test code = 19 mg/dL 7-23 0880881935) GLUCOSE (test code = 120 mg/dL 70-110 H 5284590989) CREATININE (test code = 1.15 mg/dL 0.5-1.04 H 8050540328) TOTAL BILI (test code = 0.9 mg/dL 0.1-1.4 8050361505) CALCIUM (test code = 8.9 mg/dL 8.6-10.6 3053217681) T PROTEIN (test code = 6.6 g/dL 6.3-8.2 6940096442) ALBUMIN (test code = 4.0 g/dL 3.5-5 9242700906) ALK PHOS (test code = 73 U/L 34-122 5437192848) ALTv (test code = 18 U/L 5-35 2-6) AST(SGOT) (test code = 31 U/L 13-40 6331395128) eGFR (test code = mL/min/1.73m2 7947604032) KYLE (test code = KYLE) Association of [...] tests). Lab Interpretation Abnormal (test code = 62855-3) [facility]. METABOLIC PANEL (27723)2022-02-11 05:33:21 Test Item Value Reference Range Interpretation Comments NA (test code = 137 mmol/L 135-145 5955616236) K (test code = 4.3 mmol/L 3.5-5.0 6973372572) CL (test code = 103 mmol/L 98-108 9642409464) CO2 TOTAL (test code = 25 mmol/L 23-31 3081360251) AGAP (test code = 2-16 3499896983) BUN (test code = 19 mg/dL 7-23 8989773186) GLUCOSE (test code = 120 mg/dL 70-110 H 2681789474) CREATININE (test code = 1.15 mg/dL 0.50-1.04 H 8964032972) TOTAL BILI (test code = 0.9 mg/dL 0.1-1.6 2086757227) CALCIUM (test code = 8.9 mg/dL 8.6-10.6 3775797806) T PROTEIN (test code = 6.6 g/dL 6.3-8.2 3153539454) ALBUMIN (test code = 4.0 g/dL 3.5-5.0 1138917030) ALK PHOS (test code = 73 U/L 34-122 5091677143) ALTv (test code = 18 U/L 5-35 1742-6) AST(SGOT) (test code = 31 U/L 13-40 7397654290) eGFR (test code = mL/min/1.73m2 0401592242) KYLE (test code = KYLE) Association of [...] tests). Lab Interpretation Abnormal (test code = 70765-0) [facility] / [id number] 05:33:21 Test Item Value Reference Range Interpretation Comments PROTIME PATIENT (test See_Comment [Auto mated message] code = 5964-2) The system [employer] generated this result transmitted ref erence range: 12.0 - 1 4.7 Seconds. The re ference range was not u sed to interpret this result as normal/abnor mal. INR (test code = 6301-6) Nor mal INR <1.1; Warfarin Therap eutic range 2.0 to 3. 0 or 2.5 to 3.5, dep ending upon the indica tions. Lab Interpretation (test Normal code = 13921-8) [facility] WITH [id number] 05:14:37 Test Item Value Reference Range Interpretation [...] RDW-SD (test code = 47.9 fL 39-49.9 94115-7) RDW-CV (test code = 14.9 % 12-15.5 788-0) PLT (test code = See_Comment L [Automated 777-3) message] The sy stem which generated this result transmitted reference range : 166 - 358 10*3/ ?L. The reference r abbey was not used to interpret this result as normal/abnormal . MPV (test code = 9.1 fL 9.5-12.9 L 21134-8) NRBC/100 WBC (test See_Comment [Automat ed code = 8243421304) message] The system which generated this result transmitted reference range : 0.0 - 10.0 /100 WBCs. The refer ence range was not u sed to interpret th is result as normal/abnormal . NRBC x10^3 (test code See_Comment [Auto mated = 7541326243) message] The s ystem which generated this result transmitted reference range : 10*3/?L. The reference range was not used to interpret this result as normal/abnormal . GRAN MAT (NEUT) % 78.5 % (test code = 770-8) IMM GRAN % (test code 0.20 % = 7224034723) LYMPH % (test code = 11.6 % 736-9) MONO % (test code = 8.4 % 5905-5) EOS % (test code = 1.1 % 713-8) BASO % (test code = 0.2 % 706-2) GRAN MAT x10^3(ANC) 3.45 10*3/uL 1.88-7.09 (test code = 6844320420) IMM GRAN x10^3 (test 0-0.06 code = 4411766109) LYMPH x10^3 (test code 0.51 10*3/uL 1.32-3.29 L = 731-0) MONO x10^3 (test code 0.37 10*3/uL 0.33-0.92 = 742-7) EOS x10^3 (test code = 0.05 10*3/uL 0.03-0.39 711-2) BASO x10^3 (test code 0.01-0.07 = 704-7) Lab Interpretation Abnormal (test code = 53852-8) [facility] Coronavirus 2019 [id number] 18:08:00 Test Item Value Reference Range Interpretation [...] det ection of nucleic acids f rom poiUDTY-DtT-7 v irus and diagnosis of SA RS-CoV-2 virusinfection. It is an Emergency Use Authorization ( EUA) testauthorized by the U.S. FDA. BASIC METABOLIC [id number] 09:37:00 Test Item Value Reference Range Interpretation [...] = 9.0 mg/dL 8.0-10.5 N CA) PROTHROMBIN [id number] 09:32:00 Test Item Value Reference Range Interpretation [...] (to prevent recurrent infar ct). 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 : 1955 Sex: F FAX: Carmenza Kelly DO [phone] [place]: St: ADM FAX: Mike Scales MD [phone] FAX: Bahman Chopra [phone] Name: MARJAN FLEMING [place] : 1955 Age/S: 66/F [address] [place] [address] Unit #: [id number] Loc: [place] [address] Phys: Bahman Chopra [facility] Acct: [id number] Dis Date: Status: ADM IN PHONE #: [phone] Exam Date: 06/17/2021 1320 FAX #: [phone] Reason: WATCHMAN EXAMS: CPT CODE: [id number] XR CHEST 1 V 53183 PROCEDURE INFORMATION: Exam: XR Chest Exam date [...] Chopra Technologist: RT Taylor(R) Trnscrd Date/Time/By: 06/17/2021 (0806) : By: [email or web address] Orig Print D/T: S: 06/17/2021 (6276) PAGE 1 Signed ReportCOVID 19 Asymptomatic IH [id number] 12:29:00 Test Item Value Reference Range Interpretation [...] high or waivedcomplexit y tests. BASIC METABOLIC [id number] 11:37:00 Test Item Value Reference Range Interpretation [...] code = 9.0 mg/dL 8.0-10.5 N CA) [id number] 11:37:00 Test Item Value Reference Range Interpretation Comments PREALBUMIN (test code = PREALB) 24.3 mg/dL 16.0-40.0 N PROTHROMBIN [id number] 11:03:00 Test Item Value Reference Range Interpretation [...] (to prevent recurrent infar ct). CBC W/AUTO [id number] 10:59:00 Test Item Value Reference Range Interpretation [...] 3/uL 0.0-0.1 N NRBC#) - CHEST 2 [id number] 00:00:00 [facility] : 1955 Sex: F FAX: Carmenza Kelly DO [phone] [place]: St: PRE FAX: Mike Scales MD [phone] Name: MARJAN FLEMING [facility] : 1955 Age/S: 66/F [address] [place] [address] Unit #: [id number] Loc: [place] [address] Phys: Mike Lund MD Acct: [id number] Dis Date: Status: PRE [facility] PHONE #: [phone] Exam Date: 06/16/2021 112 FAX #: [phone] Reason: PREOP EXAMS: CPT CODE: [id number] XR CHEST 2 V 49067 PROCEDURE INFORMATION: Exam: XR Chest Exam date [...] MD Technologist: RT Andree(R) Trnscrd Date/Time/By: 06/16/2021 (7852) : By: [email or web address] Orig Print D/T: S: 06/16/2021 (3821) PAGE 1 Signed ReportGastrointestinal nxyok8791-98-68 04:35:05 Test Item Value Reference Interpretation Comments [...] Rotavirus PCR (test Not Detected code = 3197838) Salmonella PCR (test Not Detected code = [...] (test code = 7124) [facility] mmwruum6491-84-34 19:30:47 Test Item Value Reference Range Interpretation Comments Case number (test [id number] code = 2281223) Surgical pathology See link below for PDF report (test code = Lab Report 2255) Result status (test This is Supplemental code = 1177800) Report for [id number] [facility]2021-04-09 16:31:00 Test Item Value Reference Range Interpretation Comments POC Activated Clotting Time (test code 153 s = POC Activated Clotting Time) [address]04-09 16:31:00 Test Item Value Reference Range Interpretation Comments POC Activated Clotting Time (test code 153 s = POC Activated Clotting Time) [place] [address]0011-04-09 16:31:00 Test Item Value Reference Range Interpretation Comments POC Activated Clotting Time (test code 153 s = POC Activated Clotting Time) [address]04-09 16:31:00 Test Item Value Reference Range Interpretation Comments POC Activated Clotting Time (test code 153 s = POC Activated Clotting Time) [place] [address]0011-04-09 16:31:00 Test Item Value Reference Range Interpretation Comments POC Activated Clotting Time (test code 153 s = POC Activated Clotting Time) [place] [address]0011-04-09 16:31:00 Test Item Value Reference Range Interpretation Comments POC Activated Clotting Time (test code 153 s = POC Activated Clotting Time) [address]04-09 16:31:00 Test Item Value Reference Range Interpretation Comments POC Activated Clotting Time (test code 153 s = POC Activated Clotting Time) [place] [address]0011-04-09 14:37:00 Test Item Value Reference Range Interpretation Comments POC Activated Clotting Time (test code 454 s = POC Activated Clotting Time) [place] [address]0011-04-09 14:37:00 Test Item Value Reference Range Interpretation Comments POC Activated Clotting Time (test code 454 s = POC Activated Clotting Time) [address]04-09 14:37:00 Test Item Value Reference Range Interpretation Comments POC Activated Clotting Time (test code 454 s = POC Activated Clotting Time) [address]04-09 14:37:00 Test Item Value Reference Range Interpretation Comments POC Activated Clotting Time (test code 454 s = POC Activated Clotting Time) [address]04-09 14:37:00 Test Item Value Reference Range Interpretation Comments POC Activated Clotting Time (test code 454 s = POC Activated Clotting Time) [address]04-09 14:37:00 Test Item Value Reference Range Interpretation Comments POC Activated Clotting Time (test code 454 s = POC Activated Clotting Time) [facility]vEBXFRDTDEF4745-30-[facility] 14:37:00 Test Item Value Reference Range Interpretation Comments POC Activated Clotting Time (test code 454 s = POC Activated Clotting Time) [facility]landKkprghhKYIEYAMFJA9816-87-79 14:13:00 Test Item Value Reference Range Interpretation Comments POC Activated Clotting Time (test code 354 s = POC Activated Clotting Time) [facility]landSzyxnmpWUEDXHBIMB3388-55-67 14:13:00 Test Item Value Reference Range Interpretation Comments POC Activated Clotting Time (test code 354 s = POC Activated Clotting Time) [facility]landAtspmfpYSKRUWPYFS5241-27-38 14:13:00 Test Item Value Reference Range Interpretation Comments POC Activated Clotting Time (test code 354 s = POC Activated Clotting Time) [facility]landEgaxqjuEGVOWANPGR3547-22-65 14:13:00 Test Item Value Reference Range Interpretation Comments POC Activated Clotting Time (test code 354 s = POC Activated Clotting Time) [facility]landJstcyhpJMMFVJWDMD3217-76-73 14:13:00 Test Item Value Reference Range Interpretation Comments POC Activated Clotting Time (test code 354 s = POC Activated Clotting Time) [facility]landWqtdrqdYQSUPZJCKC2456-36-65 14:13:00 Test Item Value Reference Range Interpretation Comments POC Activated Clotting Time (test code 354 s = POC Activated Clotting Time) [facility]landVvzvzccDPWKJBNUIU5774-59-04 14:13:00 Test Item Value Reference Range Interpretation Comments POC Activated Clotting Time (test code 354 s = POC Activated Clotting Time) [facility] TDAXBRL4837-42-95 10:37:00Negative (08/29/20 5:37 AM) [facility] AzleannCHEM JEKYK8953-08-69 10:37:33893Trqmxllf HermannCHEM PANEL 2020-08-29 10:37:0028[facility] HermannCHEM GSAYB7663-59-80 10:37:001.01[facility] HermannCHEM URZVW6218-97-24 10:37:39177Rruyjghs HermannCHEM GYTYF3236-10-23 10:37:003.8[facility] HermannCHEM QCDFH7430-44-85 10:37:94316Aysmhwlm HermannCHEM XIPLG1028-02-67 10:37:0028[facility] HermannCHEM JKVLW3425-50-02 10:37:009.8 [facility] HermannCHEM IHCIJ6382-72-11 10:37:0011.8[facility] HermannCHEM PANEL 2020-08-29 10:37:0059[facility] HermannCHEM TEGBU0197-53-91 10:37:002.9[facility] WyqoeyqRJUYGOBBZS0589-86-20 10:37:006.8[facility] OiukokqKXOZMBIUWT2891-57-79 10:37:004.47[facility] MthhaxbGYKOXTXMKE5830-91-42 10:37:0010.6[facility] ROPGPAHQYS5760-55-62 10:37:0034.0[facility] AdvtbkkPUGYGODOAV6102-00-06 10:37:00 76.1[facility] PtunduuVMDXRKWAJL1923-79-90 10:37:00 Test Item Value Reference Range Interpretation Comments MCH (test code = MCH) 23.8 pg 27.0-31.0 [facility] XmwfmcjPKMFCNSPKC3790-68-33 10:37:0031.3[facility] HermannHEMATOLOGY 2020-08-29 10:37:0018.2[facility] QpsgftiZYYUAZQYIS9844-95-24 10:37:15516Rmcbyeye PkrzelkVVYXYTYUTV1053-54-49 10:37:007.5[facility] WxflrmxBWZZALTRDE1655-21-79 10:37:00 Test Item Value Reference Range Interpretation Comments PT (test code = PT) 12.8 s 12.0-14.7 [facility] ZfihgztHNLUCTTJGX3469-81-44 10:37:00 Test Item Value Reference Range Interpretation Comments INR (test code = INR) 0.97 1 0.85-1.17 [facility] PbwkpcoSAFBQKKZOE1162-42-19 10:37:00 Test Item Value Reference Range Interpretation Comments PTT (test code = PTT) 25.0 s 22.9-35.8 [facility] KljtnhcICCDATWYRB9020-13-60 10:37:0070.5[facility] HermannHEMATOLOGY 2020-08-29 10:37:0018.8[facility] HteizcfBIABAOKXRU5766-72-29 10:37:009.5[facility] JbgetxqWLHRGYXIUE8763-32-17 10:37:000.9[facility] AstpapgFNTZZWVVCJ8285-85-96 10:37:000.3[facility] KdkhbwgHNSZKNKFUM6800-49-73 10:37:004.8[facility] MWTJNQXUCV4299-06-48 10:37:001.3[facility] CexnudyVOYHECHUPU1852-27-97 10:37:000.6 [facility] JnkqidmQKEYPCVACH5324-76-33 10:37:000.1[facility] HermannHEMATOLOGY 2020-08-29 10:37:001+ *ABN*(08/29/20 5:37 AM)[facility] RyykmrzACHIQYLOGC3446-07-72 10:37:00Not Detected (08/29/20 5:37 AM)[facility] HermannBLOOD BANK RESULTS 2020-08-29 10:37:00Negative (08/29/20 5:37 AM)[facility] HermannCHEM WZOUM1147-27-30 10:37:13310Ibuidwss HermannCHEM STZFX4674-85-38 10:37:0028[facility] HermannCHEM UGGMC9417-48-13 10:37:001.01[facility] HermannCHEM SSZZG9401-19-56 10:37:47718 [facility] HermannCHEM WGZKU6273-00-18 10:37:003.8[facility] HermannCHEM PANEL 2020-08-29 10:37:43417Xreddxkl HermannCHEM JSTKC9330-31-69 10:37:0028[facility] HermannCHEM GIAGO9224-00-92 10:37:009.8[facility] HermannCHEM WFLGO8019-29-80 10:37:0011.8[facility] HermannCHEM CKXSR3286-58-34 10:37:0059[facility] HermannCHEM ONJCO4725-58-52 10:37:002.9[facility] VhlabxmGFNFCMHMAR1033-75-51 10:37:006.8 [facility] DlercrjEKXMIVTGNM1488-62-45 10:37:004.47[facility] HermannHEMATOLOGY 2020-08-29 10:37:0010.6[facility] NdvuxzuNDYQZODSFO7984-42-43 10:37:0034.0[facility] VjbslzqUBEIAHNKNJ8949-97-15 10:37:0076.1[facility] RcpudvfUBZMUNVSQS1381-02-10 10:37:00 Test Item Value Reference Range Interpretation Comments MCH (test code = MCH) 23.8 pg 27.0-31.0 [facility] IayyaneNYHTACNCDL8883-39-10 10:37:0031.3[facility] HermannHEMATOLOGY 2020-08-29 10:37:0018.2[facility] PrsjuvxSSKNDXOKRM4244-71-78 10:37:31193Nincmvty HsmovroAPYWARVWAA6001-15-15 10:37:007.5[facility] KsaebhpZHMXUWZOYM1227-88-76 10:37:00 Test Item Value Reference Range Interpretation Comments PT (test code = PT) 12.8 s 12.0-14.7 [facility] EdpppszDXXYMMIIOT0095-30-34 10:37:00 Test Item Value Reference Range Interpretation Comments INR (test code = INR) 0.97 1 0.85-1.17 [facility] SadlzihRPKRHGCPDN9900-98-25 10:37:00 Test Item Value Reference Range Interpretation Comments PTT (test code = PTT) 25.0 s 22.9-35.8 [facility] BstoutnRJDKDBLFNL2065-39-57 10:37:0070.5[facility] HermannHEMATOLOGY 2020-08-29 10:37:0018.8[facility] DuvbbvcJLSZKFCPIB9084-93-89 10:37:009.5[facility] CumowtnNSIRAGIMJC4783-62-81 10:37:000.9[facility] HqaesuuLDVHLFYIGB1760-63-15 10:37:000.3[facility] AevsgptZAPAHAQGZA8999-08-04 10:37:004.8[facility] XGLHHTDMSG8638-60-93 10:37:001.3[facility] NgaugtcNJXBGDKZQA8706-19-85 10:37:000.6 [facility] KbtetniVSGQLEQQSD6228-51-52 10:37:000.1[facility] HermannHEMATOLOGY 2020-08-29 10:37:001+ *ABN*(08/29/20 5:37 AM)[facility] OaobdkfMYVVMSCDQL1832-22-93 10:37:00Not Detected (08/29/20 5:37 AM)[facility] HermannBLOOD BANK RESULTS 2020-08-29 10:37:00Negative (08/29/20 5:37 AM)[facility] HermannCHEM XCLKM1399-02-64 10:37:09725Sgjycpej HermannCHEM GIQXJ4376-11-28 10:37:0028[facility] HermannCHEM AUBVS3920-29-61 10:37:001.01[facility] HermannCHEM ESKQF6334-89-18 10:37:33988 [facility] HermannCHEM CQFDX5477-78-70 10:37:003.8[facility] HermannCHEM PANEL 2020-08-29 10:37:15125Vnavbedc HermannCHEM BGUCV4324-48-91 10:37:0028[facility] HermannCHEM UYLSQ6552-97-63 10:37:009.8[facility] HermannCHEM RVQKT0536-51-77 10:37:0011.8[facility] HermannCHEM KCYQS8237-39-81 10:37:0059[facility] HermannCHEM UTCSX1211-94-55 10:37:002.9[facility] WwjwovsCSTUYGBDOG4226-31-96 10:37:006.8 [facility] AcrdqepWSMFLBSMOA1798-85-77 10:37:004.47[facility] HermannHEMATOLOGY 2020-08-29 10:37:0010.6[facility] CdutoziANGNWWNBHQ0217-80-32 10:37:0034.0[facility] QzdhhetJFZDZJBMXC4253-34-26 10:37:0076.1[facility] YegblzrZINWYJIWTQ5165-35-60 10:37:00 Test Item Value Reference Range Interpretation Comments MCH (test code = MCH) 23.8 pg 27.0-31.0 [facility] ZgqirhrJWQKRBWQFS8724-41-36 10:37:0031.3[facility] HermannHEMATOLOGY 2020-08-29 10:37:0018.2[facility] GnxcwmeNHQLPEGOZA2068-92-73 10:37:21352Tksmnbqn MsdeucjVOJEKOUGZO6198-03-08 10:37:007.5[facility] SicymijFVZQTLOTGT8943-57-59 10:37:00 Test Item Value Reference Range Interpretation Comments PT (test code = PT) 12.8 s 12.0-14.7 [facility] OetwlacDQOEHWQIKQ5418-81-63 10:37:00 Test Item Value Reference Range Interpretation Comments INR (test code = INR) 0.97 1 0.85-1.17 [facility] PbtodkeWFNUXVDMJZ6121-42-75 10:37:00 Test Item Value Reference Range Interpretation Comments PTT (test code = PTT) 25.0 s 22.9-35.8 [facility] HhihzyiYEPETTLLDH4865-55-34 10:37:0070.5[facility] HermannHEMATOLOGY 2020-08-29 10:37:0018.8[facility] EnmmspeOINYOILLVU6821-63-96 10:37:009.5[facility] XkbqffcUUIGQZFPHM3112-31-73 10:37:000.9[facility] RdgiazxAKSGMJVSUV0199-71-25 10:37:000.3[facility] TgjygwoWXWIKWXUTX1943-92-78 10:37:004.8[facility] OWMXKYHTJR8008-98-57 10:37:001.3[facility] QlpbxtzRDHWBENCKB1818-50-29 10:37:000.6 [facility] ZtrxroaJIJJTAVVUW1761-97-43 10:37:000.1[facility] HermannHEMATOLOGY 2020-08-29 10:37:001+ *ABN*(08/29/20 5:37 AM)[facility] SknbyjfYTSBYHHUGM3195-77-36 10:37:00Not Detected (08/29/20 5:37 AM)[facility] HermannBLOOD BANK RESULTS 2020-08-29 10:37:00Negative (08/29/20 5:37 AM)[facility] HermannCHEM YMQFG9499-47-74 10:37:37309Qajzsrdx HermannCHEM WSHML5196-99-57 10:37:0028[facility] HermannCHEM HGTAT3553-09-10 10:37:001.01[facility] HermannCHEM ZNOKL6895-61-57 10:37:60295 [facility] HermannCHEM BNEYB2830-92-29 10:37:003.8[facility] HermannCHEM PANEL 2020-08-29 10:37:48211Aadggzng HermannCHEM IXWMG2780-70-71 10:37:0028[facility] HermannCHEM DBRXC2944-56-76 10:37:009.8[facility] HermannCHEM FSHVF3792-90-39 10:37:0011.8[facility] HermannCHEM EZBIX3411-99-61 10:37:0059[facility] HermannCHEM LWVYC6768-87-53 10:37:002.9[facility] YxqnohoTYQZJSFKBV6757-00-92 10:37:006.8 [facility] RkusrpcQHOJYQNIYA4973-59-43 10:37:004.47[facility] HermannHEMATOLOGY 2020-08-29 10:37:0010.6[facility] LollhmhCNCMZQNRNM9998-94-26 10:37:0034.0[facility] WhjhcmmPBVBBYPQOX1564-34-84 10:37:0076.1[facility] WbvujnjFNTUAPKNNY4929-54-62 10:37:00 Test Item Value Reference Range Interpretation Comments MCH (test code = MCH) 23.8 pg 27.0-31.0 [facility] OcspluoMMWTLHIMMD3125-19-33 10:37:0031.3[facility] HermannHEMATOLOGY 2020-08-29 10:37:0018.2[facility] KflcoznJXUIZCJPXH9537-15-44 10:37:55615Sfprmmle BcmrcvtTUMZLYFWXG6143-22-67 10:37:007.5[facility] LmozbbiGTGJTXEKPM0018-20-94 10:37:00 Test Item Value Reference Range Interpretation Comments PT (test code = PT) 12.8 s 12.0-14.7 [facility] AixpnqcMMTMVHUOZB9980-34-44 10:37:00 Test Item Value Reference Range Interpretation Comments INR (test code = INR) 0.97 1 0.85-1.17 [facility] ZtgxywzSCKXONSFIX5425-11-21 10:37:00 Test Item Value Reference Range Interpretation Comments PTT (test code = PTT) 25.0 s 22.9-35.8 [facility] WokhxjmIXXTBNBWCA3830-78-62 10:37:0070.5[facility] HermannHEMATOLOGY 2020-08-29 10:37:0018.8[facility] RgdtftnCJDESGJXLE7418-52-81 10:37:009.5[facility] ZgiqszkRFKAOAWEEL9069-61-37 10:37:000.9[facility] YfqododZDWNVFQCTI5745-22-71 10:37:000.3[facility] HirrkknYXYQVMHRND6452-30-61 10:37:004.8[facility] HXNWDAKALK5748-29-59 10:37:001.3[facility] MnkmyraPGNWCLTSKE9297-79-26 10:37:000.6 [facility] AhsjdtaUVOOPJTUMP1208-62-71 10:37:000.1[facility] HermannHEMATOLOGY 2020-08-29 10:37:001+ *ABN*(08/29/20 5:37 AM)[facility] XbqqlwtFJQNFDCSSU9906-82-60 10:37:00Not Detected (08/29/20 5:37 AM)[facility] HermannBLOOD BANK RESULTS 2020-08-29 10:37:00Negative (08/29/20 5:37 AM)[facility] HermannCHEM EFQFM2495-69-26 10:37:83237Shvdyzez HermannCHEM QGJMN2924-17-86 10:37:0028[facility] HermannCHEM BTBSS9344-57-13 10:37:001.01[facility] HermannCHEM MBWPB7354-34-81 10:37:23253 [facility] HermannCHEM BSSKR6809-16-72 10:37:003.8[facility] HermannCHEM PANEL 2020-08-29 10:37:50379Vhqxvyil HermannCHEM HSNGF7955-55-61 10:37:0028[facility] HermannCHEM RIIQY6243-72-28 10:37:009.8[facility] HermannCHEM EAHLN5086-25-87 10:37:0011.8[facility] HermannCHEM SMSSD4731-16-26 10:37:0059[facility] HermannCHEM NMXWG2475-72-96 10:37:002.9[facility] XgqfjycHWXXCWKLBI0106-22-56 10:37:006.8 [facility] DozzbnuKJIRIAZRYO9596-04-19 10:37:004.47[facility] HermannHEMATOLOGY 2020-08-29 10:37:0010.6[facility] YcoqibwGXFLUPGWXT1513-78-73 10:37:0034.0[facility] VrwwyuhJRNEDFQKHD1389-28-46 10:37:0076.1[facility] YekjwbvZOPCJCNIZP9006-80-51 10:37:00 Test Item Value Reference Range Interpretation Comments MCH (test code = MCH) 23.8 pg 27.0-31.0 [facility] GyiglvyEJGXFRUGQM3083-78-35 10:37:0031.3[facility] HermannHEMATOLOGY 2020-08-29 10:37:0018.2[facility] TtjlajgFETOEZWGNN4973-53-43 10:37:85854Cvvolijb EbzgvdvZGRCPDAPBJ5999-38-80 10:37:007.5[facility] MzhsukeLLNXHGNRLV3791-47-35 10:37:00 Test Item Value Reference Range Interpretation Comments PT (test code = PT) 12.8 s 12.0-14.7 [facility] XbevvpfAYWXOYGRLW9040-19-90 10:37:00 Test Item Value Reference Range Interpretation Comments INR (test code = INR) 0.97 1 0.85-1.17 [facility] UaezpckOBGCVEIXFN1126-43-26 10:37:00 Test Item Value Reference Range Interpretation Comments PTT (test code = PTT) 25.0 s 22.9-35.8 [facility] GvnttsxYERMIFTZQJ9119-85-32 10:37:0070.5[facility] HermannHEMATOLOGY 2020-08-29 10:37:0018.8[facility] SygelabZSZRJNRTJF0973-82-32 10:37:009.5[facility] TvblgpwRVYWZBLBTC7642-28-51 10:37:000.9[facility] CffiowlBPZHTDAKPA5645-65-70 10:37:000.3[facility] FeevuobWDGSSKZMWL2732-01-74 10:37:004.8[facility] TPSATMTWNR7882-74-05 10:37:001.3[facility] HiwmtarDQBUNJXZUV0734-36-42 10:37:000.6 [facility] VjvvdxvLZRSYXYSDO9135-39-73 10:37:000.1[facility]annHEMATOLOGY 2020-08-29 10:37:001+ *ABN*(08/29/20 5:37 AM)[facility] IpgjlycSMDXKMFGTL3940-05-58 10:37:00Not Detected (08/29/20 5:37 AM)[facility] HermannBLOOD BANK RESULTS 2020-08-29 10:37:00Negative (08/29/20 5:37 AM)[facility] HermannCHEM XTRPX3412-75-36 10:37:32490Xfmxsaeg HermannCHEM DGHSL3931-83-96 10:37:0028[facility] HermannCHEM KDMCR0486-53-40 10:37:001.01[facility] HermannCHEM OAJAC1853-00-79 10:37:37319 [facility]annCHEM SLKFL4751-65-07 10:37:003.8[facility] HermannCHEM PANEL 2020-08-29 10:37:88800Utwduysu HermannCHEM MGIXE1020-19-10 10:37:0028[facility] HermannCHEM LCOEG3624-89-24 10:37:009.8[facility] HermannCHEM SAOKM2847-08-02 10:37:0011.8[facility] HermannCHEM KRCGH4851-68-14 10:37:0059[facility] HermannCHEM HMEJU6002-77-60 10:37:002.9[facility] ImuiqthICJDVSJVTJ5872-51-20 10:37:006.8 [facility] GkoxfhsBGROIWVNFX0951-91-43 10:37:004.47[facility]annHEMATOLOGY 2020-08-29 10:37:0010.6[facility] OanbjnyKJRQXQXUIU1749-57-93 10:37:0034.0[facility] TthhqedRVCPQITZEL0865-26-25 10:37:0076.1[facility] ZazhbtiSSJUQOCRMZ8510-70-97 10:37:00 Test Item Value Reference Range Interpretation Comments MCH (test code = MCH) 23.8 pg 27.0-31.0 [facility] DmnsviwJYXUYHNQAX2768-10-95 10:37:0031.3[facility]annHEMATOLOGY 2020-08-29 10:37:0018.2[facility] OcmyvznYBOJSBWJPA5455-61-74 10:37:39203Wpxzrenq WibrzeqIWWHGRBAAL6244-13-11 10:37:007.5[facility] TylecksFODKJHXOAX1896-56-72 10:37:00 Test Item Value Reference Range Interpretation Comments PT (test code = PT) 12.8 s 12.0-14.7 [facility] RjabcyaENHNEIHZPJ9621-34-04 10:37:00 Test Item Value Reference Range Interpretation Comments INR (test code = INR) 0.97 1 0.85-1.17 [facility] GnwxsfkZTIDAHBAIO0647-40-85 10:37:00 Test Item Value Reference Range Interpretation Comments PTT (test code = PTT) 25.0 s 22.9-35.8 [facility] GqxmolqEFVZXGWBQM2248-59-21 10:37:0070.5[facility]annHEMATOLOGY 2020-08-29 10:37:0018.8[facility] JulwghwDZEKYPVCKC2669-72-36 10:37:009.5[facility] PqwfhrnBOURDIEMIQ7960-13-83 10:37:000.9[facility] UnbzjxkYRLHHDILHV3914-53-58 10:37:000.3[facility] FydmrwkWBOXPLQMJS7462-83-94 10:37:004.8[facility] CJSKHVRZSH7429-41-64 10:37:001.3[facility] IpikcezLOSRZGXXPM6251-62-69 10:37:000.6 [facility] FfccuzyGRNNIILLXD1421-26-72 10:37:000.1[facility]annHEMATOLOGY 2020-08-29 10:37:001+ *ABN*(08/29/20 5:37 AM)[facility] BuhdtssKYVROEHULD3900-89-65 10:37:00Not Detected (08/29/20 5:37 AM)[facility]annBLOOD BANK RESULTS 2020-08-29 10:37:00Negative (08/29/20 5:37 AM)[facility] HermannCHEM OPZWZ4767-56-54 10:37:70992Hszmglxl HermannCHEM GABEW2494-84-94 10:37:0028[facility] HermannCHEM HZSKO6901-15-26 10:37:001.01[facility] HermannCHEM WTUVJ3724-43-93 10:37:60387 [facility]annCHEM VVLRE0322-42-12 10:37:003.8[facility] HermannCHEM PANEL 2020-08-29 10:37:78561Cmosjzbh HermannCHEM WVXWS0734-65-54 10:37:0028[facility]annCHEM BNRNZ5506-23-64 10:37:009.8[facility] HermannCHEM DPDPW6278-37-51 10:37:0011.8[facility] HermannCHEM OVENZ5587-71-77 10:37:0059[facility]annCHEM JSGNQ9626-03-03 10:37:002.9[facility] LxcbntuGBIXJDSSWP2280-87-11 10:37:006.8 [facility] PnjmpfuOSNEZTLXDP7116-67-26 10:37:004.47[facility]annHEMATOLOGY 2020-08-29 10:37:0010.6[facility] WnpsjojKUTWYBODPJ7248-51-82 10:37:0034.0[facility] MzlpqyyBDADJBVZMZ2370-17-10 10:37:0076.1[facility] EdeccimFNQBKYLLXX4450-04-56 10:37:00 Test Item Value Reference Range Interpretation Comments MCH (test code = MCH) 23.8 pg 27.0-31.0 [facility] KnmmhemXBLHNRMNHH4943-12-81 10:37:0031.3[facility] HermannHEMATOLOGY 2020-08-29 10:37:0018.2[facility] HfevewbUOHTQSKIWP2446-24-06 10:37:97442Nolmonub SrxpqujFZDLEPUMRB2705-32-43 10:37:007.5[facility] LbptojbWYHIOTRBET8136-74-95 10:37:00 Test Item Value Reference Range Interpretation Comments PT (test code = PT) 12.8 s 12.0-14.7 [facility] NhdsdgnIYBJUEUYLA0757-50-40 10:37:00 Test Item Value Reference Range Interpretation Comments INR (test code = INR) 0.97 1 0.85-1.17 [facility] XdbzeuyPBENSPLWSK5726-64-47 10:37:00 Test Item Value Reference Range Interpretation Comments PTT (test code = PTT) 25.0 s 22.9-35.8 [facility] TlmrjaiSEUAEDFWDM7566-21-29 10:[facility] 2020-[facility]29 10:37:0018.8[facility] SqqikhrENMQEUIXHK1814-22-76 10:37:009.5[facility] KwjbesmACWSXDNGFU0672-62-96 10:37:000.9[facility] LzklmsvQZFWNQAWGL1223-26-30 10:37:000.3[facility] HsduzcwKNMKLBDWKM7165-54-47 10:37:004.8[facility] XXNGFYOXNN4279-48-58 10:37:001.3[facility] ReqnvqwQIEIGZMWVJ1443-14-46 10:37:000.6 [facility] UbpvwtvCFZJIKTRRG1081-48-68 10:37:000.1[facility] 2020-08-29 10:37:001+ *ABN*(08/29/20 5:37 AM)[facility] WcwhwqiUDTCNTBQNU4229-37-33 10:37:00Not Detected (08/29/20 5:37 AM)[facility], TV,PCR, IN EUUVO6841-20-67 15:38:00 Test Item Value Reference Range Interpretation Comments FT (test code = CHTR) Not detected (qualifier Not Detected N value) FT (test code = Not detected (qualifier Not Detected N NGONO) value) FT (test code = TRVG) Not detected (qualifier Not Detected N value) [facility] FMVPDQSPJIY8293-26-54 10:57:00 Test Item Value Reference Range Interpretation Comments Color (test code = UCOLR) Dk. Yellow Clarity (test code = UCLAR) Hazy Glucose (test code = UGLUC) NEGATIVE NEGATIVE N Bilirubin (test code = UBILI) NEGATIVE NEGATIVE N Ketones (test code = UKET) NEGATIVE NEGATIVE N Specific Archer (test code = 1.025 1.005-1.030 A USPGR) [...] Notes Date/Time Note Provider Source 2021-08-05 14:08:00-00:00 [id number] [place] [address] PATIENT NAME: MARJAN FLEMING ADMIT DATE: 08/05/21 ACCOUNT NO: [id number] ROOM NO: AGE: 66 REPORT TYPE: eTRANSESOPHAGEAL ECHO REPORT SEX: F ADMITTING PHYSICIAN: ATTENDING PHYSICIAN:Mike Lund MD *[place] [address] Transesophageal Echocardiogram Patient: Marjan Fleming Study Date: 08/05/2021 BP: 158 / 92 Location: [facility] URN: [id number] : 1955 Age: 66 Height: / Gender: F Weight: / BMI/BSA: / *Ordering Physician: * Mike Lund *Interpreting Physician: * Ashely Mckeon MD *Hand Blocker: * dOessa Interiano Indications: POST WATCHMAN. Study data: Consent: [...] benzocaine spray. A transesophageal probe (SN: [id number]) was inserted by the attending offal roller without difficulty. L ocation: CV PREP. Patient [...] benzocaine spray. A transeso phageal probe (SN: [id number]) was inserted by the attending cardiolog ist [...] PATIENT NAME: MARJAN FLEMING 1 2021-06-24 11:18:00-00:00 [id number] [place] [address] PATIENT NAME: MARJAN FLEMING ADMIT DATE: 06/17/21 ACCOUNT NO: [id number] ROOM NO: ADDIS AGE: 66 REPORT TYPE: eTRANSESOPHAGEAL ECHO REPORT SEX: F ADMITTING PHYSICIAN:Mike Lund MD ATTENDING PHYSICIAN:Mike Lund MD *[place] [address] Transesophageal Echocardiogram for Watchman Patient: Marjan Fleming Study Date: 06/17/2021 BP: Location: [facility] URN: [id number] : 1955 Age: 66 Height: / [...] setup: The patient was brought to the [facility] in the fasting state.Intravenous access was obtained. Surface E CG leads, blood pressure measurements, and pulse oximetric signals were m onitored. Sedation. Sedation was administered by anesthesiology samreen rodas. Transesophageal echocardiography was performed. A transesophagea l probe was inserted by the anesthesiologist. Images were obtained using a [employer] cardiac ultrasound machine. Location: Catheterization laboratory. Christian [...] stable. Right groin suture removed by this CAR WASHER. No infect ion, bleeding, or hematoma. Dermabond applied and intact. Patient was provided with post-Watchman discharg e instructions. Patient is to follow up with PCP and offal roller in 1 t o 2 weeks post discharge. Patient is to follow up with offal roller for th e 45-day WESLEY, and for anticoagulation recommendation. Prepared and electronically signed by Ashely Mckeon MD 06/24/2021 11:18 Electronically Signed by Mike Lund MD on at 1118 PATIENT NAME: MARJAN FLEMING 7 2021-06-17 18:10:00-00:00 [id number] [place] [address] PATIENT NAME: MARJAN FLEMING ADMIT DATE: 06/17/21 ACCOUNT NO: [id number] ROOM NO: [facility] AGE: 66 REPORT TYPE: eECHOCARDIOGRAM REPORT SEX: F ADMITTING PHYSICIAN:Mike Lund MD ATTENDING PHYSICIAN:Mike Lund MD *[address] [place] [address] Limited Transthoracic Echocardiogram Patient: Marjan Fleming Study Date: 06/17/2021 BP: 117 / 82 Location: [facility] URN: [id number] : 1955 Age: 66 Height: 64 in / 162.6 cm Gender: F Weight: 210 lb / 95.5 kg BMI/BSA: 36.1 kg/m 2 / 2.12 m 2 *Ordering Physician: * Bahman Chopra *Interpreting Physician: * Kevin Merino MD *Hand Blocker: * Tiarra Loja Indications: Post Watchman/Rule out [...] NAME: MARJAN FLEMING 7 2021-06-17 11:12:00-00:00 [facility] Discharge Summary REPORT#:[id number] REPORT STATUS: Signed DATE:06/17/21 TIME: 1112 PATIENT: MARJAN FLEMING UNIT #: [id number] ROOM/BED: [place] [address] : [birth year] AGE: 67 SEX: F ATTEND: René Lund MD ADM AUTHOR: Bahman Chopra * ALL edits or amendments must be made on the el [employer]/computer document * PCP PCP Discharge to: home [...] stable. Right groin suture removed by this CAR WASHER. No infect ion, bleeding, or hematoma. Dermabond applied and intact. Patient was provided with post-Watchman discharg e instructions. Patient is to follow up with PCP and offal roller in 1 to 2 we eks post discharge. Patient is to follow up with offal roller for th e 45-day WESLEY, and for [...] breath, lightheadedness, or dizzi ness to the offal roller. Dispo: It is medically necessary that patients [...] distress GI: soft, non-tender Extremities: moves all Neuro/CUSTOMS IMPORT SPECIALIST: alert, oriented X 3 Skin: dry Wound/incision: Location: Right groin suture removed by this CAR WASHER. No infect ion, bleeding, or hematoma. Dermabond [...] 1-2 weeks Electronically Signed by Bahman Chopra n 06/17/21 at 1613 Electronically Signed by Mike Lund MD on 07/14 at 0946 RPT #:[id number] END OF REPORT 2021-06-17 09:43:00-00:00 [id number] [place] [id number] PATIENT NAME: MARJAN FLEMING ADMIT DATE: 06/17/21 ACCOUNT NO: [id number] ROOM NO: ADDIS AGE: 66 REPORT TYPE: eELECTROCARDIOGRAM REPORT SEX: F ADMITTING PHYSICIAN:Mike Lund MD ATTENDING PHYSICIAN:Mike Lund MD Order: [id number] Test Reason : S/P WATCHMAN Test Date/Time [...] PATIENT NAME: MARJAN FLEMING 7 2021-06-17 08:54:00-00:00 [id number] [place] [address] PATIENT NAME: MARJAN FLEMING ADMIT DATE: 06/17/21 ACCOUNT NO: [id number] ROOM NO: ADDIS AGE: 66 REPORT TYPE: CARDIAC CATHETERIZATION REPORT SEX: F ADMITTING PHYSICIAN:Mike Lund MD ATTENDING PHYSICIAN:Mike Lund MD PROCEDURE DATE: 06/17/2021 PROCEDURE PERFORMED: Left atrial appendage closu re using a 24 mm Watchman FLX closure device. ACCESS: Right femoral vein, 16-Macanese closed wit h zuqfwn-qe-zgjxc suture. DIRECTOR STAFFING: Mike Lund MD. SECONDARY COFOUNDER: Kevin Merino MD. COMPLICATIONS: None. BLEEDING: Less [...] I accessed right femo ral vein, placed 8-Macanese [place] sheath. Subsequently, upgraded to 16-Macanese sheath and gave a partial dose of heparin, then took the SL1 sheat h into the SVC over a wire with [place] needle inside, descended under the fluor oscopy [...] I removed the Watchman sheath and the 16-Macanese sheath and placed ukqoss-yt-hzpna suture for hemostasis, then achieved a good hemo stasis. CONCLUSION: Left atrial appendage closure using a 24 mm Watchman FLX closure PATIENT NAME: MARJAN FLEMING 7 device. Dictated By: Mike Lund MD WT: CATH:G.MAL/RIKY/ALLA Conf#: [id number]/DID#: [id number] Authenticated by Mike Lund MD On 07/01/2021 12:30:01 PM Electronically Signed by Mike Lund MD on at 1230 PATIENT NAME: MARJAN FLEMING 7 2021-06-16 10:36:00-00:00 [id number] [place] [address] PATIENT NAME: MARJAN FLEMING ADMIT DATE: ACCOUNT NO: [id number] ROOM NO: AGE: 66 REPORT TYPE: eELECTROCARDIOGRAM REPORT SEX: F ADMITTING PHYSICIAN: ATTENDING PHYSICIAN:Mike Lund MD Order: [id number] Test Reason : PREOP Test Date/Time Stamp: TueJun 16 2021 10:36:24 Blood Pressure : / mmHG Vent. Rate : 062 BPM Atrial Rate : 062 BPM P-R Int : 148 ms QRS Dur : 078 ms QT Int : 464 ms P-R-T Axes : 008 022 033 degre es QTc Int : 470 ms Normal sinus rhythm Nonspecific ST and T wave abnormality Prolonged QT Abnormal ECG PRE_OP Confirmed by ARMANDO FISHER MD ([id number]) on 06/16/19 11:29:35 AM Referred By: Mike Lund Confirmed by:ARMANDO RICHARDS MD at 1129 PATIENT NAME: MARJAN FLEMING 7"
--- NOTE | 2023-01-11 09:39 | RAD REPORT ---
EXAM DESCRIPTION: RAD - Chest Single View - 01/11/2023 9:34 am CLINICAL HISTORY: SOB COMPARISON: Chest Single View dated 01/07/2023; Chest Single View dated 12/27/2022; Chest Single View d ated 12/19/2022; Chest Single View dated 12/13/2022; Chest Single View dated 09/22/2022; Chest Single Vie w dated 06/01/2022 FINDINGS: Lines: None. Lungs: No evidence of edema or pneumonia. Pleural: No significant pleural effusions or pneumothorax. Cardiac: Cardiomegaly. Mediastinum: Within normal limits. Bones: No acute fractures. Bilateral shoulder arthroplasty. Other: None IMPRESSION: No acute cardiopulmonary disease.
[2023-01-11] MEDS ORDERED: ACETAMINOPHEN 500 MG TAB ONE (09:47)
[2023-01-11 10:31] LABS: SARS-CoV-2 Antigen Rapid Res Negative (Negative)
--- NOTE | 2023-01-11 10:50 | ER ---
Nurse's Notes [facility] Name: Marjan Kolb Age: 67 yrs Sex: Female : 1955 Arrival Date: 01/11/2023 Time: 09:14 Bed 4 Private MD: Diagnosis: Shortness of breath;Headache Presentation: 01/11 09:21 Chief complaint: EMS states: toned out to patient home for difficulty breathing. SpO2 ld1 98% RA. Coronavirus screen: At this time, the client does not indicate any symptoms associated with coronavirus-19. Ebola Screen: No symptoms or risks identified at this time. Initial Sepsis Screen: Does the patient meet any 2 criteria? No. Patient's initial sepsis screen is negative. Does the patient have a suspected source of infection? No. Patient's initial sepsis screen is negative. Risk Assessment: Do you want to hurt yourself or someone else? Patient reports no desire to harm self or others. Onset of symptoms was January 11, 2023. 09:21 Method Of Arrival: EMS: [facility] ld1 09:21 Acuity: BLAYNE 3 ld1 09:37 Care prior to arrival: Medication(s) given: Albuterol Neb x 1, ASA, 325 mg, Atrovent ld1 Neb x 1, Nitroglycerin, 0.4 mg SL x 2. Triage Assessment: 09:34 General: Appears in no apparent distress. comfortable, Behavior is calm, cooperative, ld1 appropriate for age. Pain: Complains of pain in face Pain does not radiate. Pain currently is 7 out of 10 on a pain scale. Quality of pain is described as aching, Pain began suddenly, Is continuous. EENT: No signs and/or symptoms were reported regarding the EENT system. Neuro: Level of Consciousness is awake, alert, obeys commands, Oriented to person, place, time, situation. Cardiovascular: Capillary refill < 3 seconds Patient's skin is warm and dry. Rhythm is sinus bradycardia. Respiratory: Airway is patent Respiratory effort is even, labored. GI: Abdomen is round non-distended. : No signs and/or symptoms were reported regarding the genitourinary system. Derm: No signs and/or symptoms reported regarding the dermatologic system. Musculoskeletal: No signs and/or symptoms reported regarding the musculoskeletal system. Historical: - Allergies: 09:34 Azithromycin; ld1 09:34 Bactrim; ld1 09:34 butorphanol; ld1 09:34 Fentanyl; ld1 09:34 Reglan; ld1 09:34 Sulfa (Sulfonamide Antibiotics); ld1 09:34 TRIMETHOPRIM; ld1 - PMHx: 09:34 angina pectoris; Anxiety; Atrial fibrillation; Bipolar disorder; esophageal varicies; ld1 Hepatitis; HIV positive; Hypertensive disorder; Migraine; panic attack; - Immunization history:: Adult Immunizations up to date. - Social history:: Smoking status: Patient/guardian denies using tobacco, the patient reports quitting approximately 3 years ago, Patient/guardian denies using alcohol. Screenin:50 [facility] ED Fall Risk Assessment (Adult) History of falling in the last 3 months, ld1 including since admission No falls in past 3 months (0 pts). Abuse screen: Denies threats or abuse. Denies injuries from another. Nutritional screening: No deficits noted. Tuberculosis screening: No symptoms or risk factors identified. Assessment: 09:30 Reassessment: See triage assessment. ld1 09:30 Reassessment: Patient appears in no apparent distress at this time. No changes from ld1 previously documented assessment. Patient and/or family updated on plan of care and expected duration. Pain level reassessed. Pt requesting pain medication X 3. Notified ERP. ERP offered tylenol, pt denied medication. 10:50 Reassessment: Pt states "I want to go home, I do not want to wait on results. I am ld1 going home right now because yall arent giving me any pain medication." Notified ERP. 10:50 Reassessment: Patient appears in no apparent distress at this time. No changes from ld1 previously documented assessment. Patient and/or family updated on plan of care and expected duration. Pain level reassessed. Patient is alert, oriented x 3, equal unlabored respirations, skin warm/dry/pink. Vital Signs: 09:21 BP 195 / 105; Pulse 53; Resp 19; Temp 97.9(TE); Pulse Ox 98% on R/A; Weight 77.11 kg; ld1 Height 5 ft. 6 in. ; Pain 7/10; 10:46 BP 203 / 104; Pulse 53; Resp 13; Pulse Ox 95% on R/A; ld1 09:21 Body Mass Index 27.44 (77.11 kg, 167.64 cm) ld1 09:21 Pain Scale: Adult ld1 ED Course: 09:15 Patient arrived in ED. ll1 09:16 Daysi Mendez PA-C is PHCP. sb4 09:16 Justus Kolb MD is Attending Physician. sb4 09:22 Triage completed. ld1 09:30 Patient has correct armband on for positive identification. Placed in gown. Bed in low ld1 position. Call light in reach. Side rails up X2. traffic monitor specialist on. Pulse ox on. NIBP on. Door closed. Noise minimized. Warm blanket given. 09:30 No provider procedures requiring assistance completed. Missed attempt(s): 22 gauge in ld1 left forearm. Patient did not have IV access during this emergency room visit. 09:34 Arm band placed on right wrist. ld1 09:35 XRAY Chest (1 view) In Process Unspecified. EDMS Administered Medications: 09:39 Not Given (Patient Refused): Acetaminophen PO 1000 mg PO once sb4 Medication: 10:50 VIS not applicable for this client. ld1 Outcome: 09:30 Discharged to home ambulatory. ld1 09:30 Condition: stable 09:30 Discharge instructions given to patient, Instructed on discharge instructions, follow up and referral plans. Demonstrated understanding of instructions, follow-up care. 10:49 Discharge ordered by . sb4 10:52 Patient left the ED. ld1 Signatures: Dispatcher [employer] EDMS Yanira De Jesus RN RN ll1 Wanda Shah RN RN ld1 Daysi Mendez PA-C PA-C sb4
--- NOTE | 2023-01-11 10:50 | EDPHYS ---
Physician Documentation [facility] Name: Marjan Kolb Age: 67 yrs Sex: Female : 1955 Arrival Date: 01/11/2023 Time: 09:14 Bed 4 Private MD: ED Physician Justus Kolb HPI: 01/11 09:33 This 67 yrs old Female presents to ER via EMS with complaints of shortness of breath. sb4 09:35 patient states she woke up this morning feeling short of breath and mild chest pain and sb4 called 911. EMS administered albuterol, atrovent, 324 aspirin, and nitro x 2. she is still complaining of shortness of breath upon arrival, saturating 100% on room air, no respiratory distress. now requesting pain medication for a headache. Historical: - Allergies: 09:34 Azithromycin; ld1 09:34 Bactrim; ld1 09:34 butorphanol; ld1 09:34 Fentanyl; ld1 09:34 Reglan; ld1 09:34 Sulfa (Sulfonamide Antibiotics); ld1 09:34 TRIMETHOPRIM; ld1 - PMHx: 09:34 angina pectoris; Anxiety; Atrial fibrillation; Bipolar disorder; esophageal varicies; ld1 Hepatitis; HIV positive; Hypertensive disorder; Migraine; panic attack; - Immunization history:: Adult Immunizations up to date. - Social history:: Smoking status: Patient/guardian denies using tobacco, the patient reports quitting approximately 3 years ago, Patient/guardian denies using alcohol. ROS: 09:35 Constitutional: Negative for fever, chills, and weight loss. sb4 09:35 Cardiovascular: Positive for chest pain. 09:35 Respiratory: Positive for cough, shortness of breath. 09:35 Neuro: Positive for headache. 09:35 All other systems are negative. Exam: 09:35 Constitutional: This is a well developed, well nourished patient who is awake, alert, sb4 and in no acute distress. Head/Face: Normocephalic, atraumatic. Eyes: Extra-ocular motions intact. Periorbital areas with no swelling, redness, or edema. ENT: Mucous membranes moist. Cardiovascular: Regular rate and rhythm with a normal S1 and S2. Respiratory: Lungs have equal breath sounds bilaterally, clear to auscultation and percussion. No rales, rhonchi or wheezes noted. No increased work of breathing, no retractions or nasal flaring. Abdomen/GI: Soft, non-tender, no distension. Skin: Warm, dry with normal turgor. Normal color with no rashes, no lesions, and no evidence of cellulitis. MS/ Extremity: Pulses equal, no cyanosis. Neurovascular intact. Full, normal range of motion. Vital Signs: 09:21 BP 195 / 105; Pulse 53; Resp 19; Temp 97.9(TE); Pulse Ox 98% on R/A; Weight 77.11 kg; ld1 Height 5 ft. 6 in. ; Pain 7/10; 10:46 BP 203 / 104; Pulse 53; Resp 13; Pulse Ox 95% on R/A; ld1 09:21 Body Mass Index 27.44 (77.11 kg, 167.64 cm) ld1 09:21 Pain Scale: Adult ld1 MDM: 09:16 Patient medically screened. sb4 09:35 Differential Diagnosis covid, flu, pneumonia, bronchitis, URI, angina, chronic pain. sb4 09:57 Independent interpretation of the following test(s) in the Emergency Department X-Ray: sb4 My interpretation is my interpretation of the chest xray images are cardiomegaly, no acute consolidation, no pleural effusion. 10:51 Data reviewed: vital signs, nurses notes, lab test result(s), radiologic studies, and sb4 as a result, I will discharge patient. Care significantly affected by the following chronic conditions: Hypertension. Counseling: I had a detailed discussion with the patient and/or guardian regarding the historical points, exam findings, and any diagnostic results supporting the discharge/admit diagnosis, the presence of at least one elevated blood pressure reading (>120/80) during this emergency department visit, lab results, radiology results. Special discussion: I have referred the patient to see his PCP for further evaluation of high blood pressure. I discussed with the patient their frequent requests for pain medications. Instructions have been given, that in the best interests of the patient, further pain Rx's must come from the patient's PCP or a painter ski edge. ED course: patient unhappy that I would not prescribe her pain medication. wants to leave AMA. will DC patient home. vitals stable, return precautions given and understood. 01/11 09:21 Order name: SARS RAPID; Complete Time: 10:42 sb4 01/11 09:21 Order name: Flu; Complete Time: 10:42 sb4 01/11 09:21 Order name: XRAY Chest (1 view); Complete Time: 09:39 sb4 01/11 09:21 Order name: EKG; Complete Time: 09:22 sb4 01/11 09:21 Order name: Cardiac monitoring; Complete Time: 09:38 sb4 01/11 09:21 Order name: EKG - Nurse/Tech; Complete Time: 10:28 sb4 01/11 09:21 Order name: O2 Per Protocol; Complete Time: 09:38 sb4 01/11 09:21 Order name: O2 Sat Monitoring; Complete Time: 09:38 sb4 01/11 10:41 Order name: Labs - recollect needed: recollect green and lavender top bd EC:14 Rate is 54 beats/min. Rhythm is regular, Sinus bradycardia. [place] interval is prolonged at sb4 202 msec. QRS interval is normal at 90 msec. QT interval is normal at 460 msec. Clinical impression: Abnormal EKG without significant change. Interpreted by me. Reviewed by me. Administered Medications: 09:39 Not Given (Patient Refused): Acetaminophen PO 1000 mg PO once sb4 Disposition Summary: 01/11/23 10:49 Discharge Ordered Location: Home sb4 Problem: new sb4 Symptoms: are unchanged sb4 Condition: Stable sb4 Diagnosis - Shortness of breath sb4 - Headache sb4 Followup: sb4 - With: Private Physician - When: As needed - Reason: Recheck today's complaints, Continuance of care, Re-evaluation by your physician Discharge Instructions: - Discharge Summary Sheet sb4 - General Headache Without Cause sb4 - Shortness of Breath, Adult, [id number] sb4 Forms: - Medication Reconciliation Form sb4 - Thank You Letter sb4 - Antibiotic Education sb4 - Prescription Opioid Use sb4 - Patient Portal Instructions sb4 - Leadership Thank You Letter sb4 Signatures: Dispatcher [employer] Heydi He Lauren, RN RN ld1 Daysi Mendez, NEO LARSON sb4
[2023-01-11 10:59] VITALS: BP 203/104; TEMP 97.9; O2SAT 95
--- NOTE | 2023-01-12 13:00 | EKG ---
Test Date: 2023-01-11 Test Time: 10:03:05 Chief Of Pediatric Urology: MEASUREMENT RESULTS: Intervals: Rate: 54 SC: 202 QRSD: 90 QT: 460 QTc: 436 [place]: P: 49 SC: 202 QRS: 30 T: 234 INTERPRETIVE STATEMENTS: Sinus bradycardia ST & T wave abnormality, consider inferior ischemia Abnormal ECG Compared to ECG 01/07/2023 20:26:54 ST (T wave) deviation now present Possible ischemia now present Atrial premature complex(es) no longer present Left ventricular hypertrophy no longer present Early repolarization no longer present Electronically Signed On 01-12-23 12:57:55 CDT by Mike Lund
== END 2023-01-11 10:52 | disposition home or self-care (01) ==
LOC: ER 09:14
DX: R06.02 Shortness of breath (principal); R51.9 Headache, unspecified; R07.9 Chest pain, unspecified; I10 Essential (primary) hypertension; Z20.822 Contact with and (suspected) exposure to COVID-19; Z21 Asymptomatic human immunodeficiency virus [HIV] infection status; Z88.1 Allergy status to other antibiotic agents; Z88.2 Allergy status to sulfonamides; Z88.3 Allergy status to other anti-infective agents; Z88.5 Allergy status to narcotic agent; Z88.8 Allergy status to other drugs, medicaments and biological substances
CPT/HCPCS: 36415; 71045; 87804; 87811; 93005

== ENCOUNTER 2023-01-13 22:25 | Emergency (ER) | payer OTHER ==
--- OUTSIDE RECORDS SUMMARY | 2023-01-13 22:44 | XMS REPORT | Continuity of Care Document ---
:1955 Author Organization [facility] Address [address] [place] [address] Care Team Providers Name Role Phone Urmila [...] Tomy Marie MD Attending Clinician Doctor Unassigned, [place] Attending Clinician Unavailable Bill COLES Attending Clinician Unavailable Bill Rose Attending Clinician CHARITY MCALLISTER Attending Clinician Unavailable Charity Mcallister MD Attending Clinician GADIEL KOEHLER Attending Clinician Unavailable Mike Lund Attending Clinician Unavailable NIKOLAI REEVES Attending Clinician Unavailable Eliseo Arce MD Attending Clinician Carol Ann IZQUIERDO, Sarai Lieberman Attending Clinician [phone] Ashly Pelletier MA Attending Clinician Unavailable Dagoberto Bass MD Attending Clinician [place] Evangelista Attending Clinician Lab, [facility] I Attending Clinician Unavailable Monica Rodas MA Attending Clinician Unavailable Agustina Ortiz MA Attending Clinician Unavailable Andrez RAMIREZ, Rody Attending Clinician Unavailable Kirit Flood MD, V. Attending Clinician HEMATPOUR, BEVERLY Attending Clinician Unavailable Caridad AMBULANCE MECHANIC, Gloria Attending Clinician Xiao RAMIREZ, Michael Corbin Attending Clinician Unavailable Team, [facility] Attending Clinician UnavailDO PORSHA Newell Attending Clinician Unavailable Gadiel Koehler MD Attending Clinician Tyrone JENKINS, Eveline Sierra Attending Clinician Stanislav RAMIREZ, Eladio Inman Attending Clinician Unavailable Geraldine SALGUERO, Leyda Attending Clinician [phone] Selvin RAMIREZ, Stefanie Attending Clinician Unavailable [...] Number Effective Date Expiration Date S gabino [facility] COMMUNITY [facility]AN [id number] 2012 STAR PLUS OON 00:00:00 [facility] [id number] 2019 DUAL COMPLETE HMO 00:00:00 [facility] STAR [id number] 2019 PLUS 00:00:00 MEDICAID [facility] [id number] 2020 00:00:00 [facility] [id number] 2019 [facility] 00:00:00 [employer] MEDICARE ADV [id number] 2019 2019 00:00:00 00:00:00 Problems Condition Condition Condition Status Onset Resolution Last Treating Co mments Source Name Details Category Date Date Treatment Clinician Date Dyspnea, Dyspnea, Disease Active Unive rs unspecifie unspecifie 02-11 it y of d type d type 00:00: [place] 00 Medical Branch Gastropare Gastropare Disease Active Overview : Methodi sis sis 4-[address] 00[facility] note l might be different from the original. Added automatic ally from request for surgery [id number] Dysphagia Dysphagia Disease Active Overview: Methodi 4-[address] 00:00: [facility] 00 note l might be different from the original. 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 2020-10-15 Get PVI PVI 3-30 17:07:00 l ABLATION ABLATION 00:00: Patel n W/ CARTO / W/ CARTO / 00 GA / T GA / T Active 08/19/2020 [facility] Food Food Disease Active 2019-05 Methodi [...] H[facility] hoxazole - Clear 00:00: [facility] trimetho DA Active SV [facility] prim - Clear 00:00: [facility] codeine DA Active SV N/V HCA -25 Clear 00:00: [place] [facility] Metoclop Propensi Active [place] ramide [...] Hives Univers INGREDI 208 ity of 00:00: [place] [facility] TRIMETHO DRUG Active Hives 2018-0 [...] Date Stop Date Source Natural father Diabetes [facility] Natural father Other - see comments [facility] Natural [facility] Hy[facility] father [facility] Natural mother [facility] Social History Social Habit Start Date Stop Date Quantity Comments Source Gender identity 2020-10-06 Identifies as Method [facility] 15:23:56 female gender Hospital (finding) History SDOH [place] Alcohol Frequency Hospita l History SDOH [place] Alcohol Std Drinks Hospit al History SDOH [place] Alcohol B[facility] Sexual orientation [facility] History of Social 2022-08-26 2022-08-[address] function 00:00:00 00:00:00 Hospital Exposure to 2022-04-30 2022-05-10 Yes University of SARS-CoV-2 (event) 00:00:00 10:25:00 [facility] Tobacco use and 2022-02-11 2022-02-11 Former smokeless Uni versity of exposure 00:00:00 00:00:00 tobacco user [facility] Tobacco Comment 2022-02-11 2022-02-11 Smokes approx 1-2 Un iversity of 00:00:00 00:00:00 cigarettes per [facility] day when she Branch smokes Alcohol intake 2020-12-08 2020-12-08 Current drinker [facility] 00:00:00 00:00:00 of [facility] (finding) Cigarettes smoked 2020-09-05 2020-09-[address] current (pack per 00:00:00 00:00:00 [facility] day) - Reported Cigarette 2020-09-05 2020-09-05 [facility] pack-years 00:00:00 00:00:00 Hospital Alcohol Comment 2016-09-23 2016-09-23 rare [facility] 00:00:00 00:00:00 Hospital History of tobacco 2011-09-29 User of smokeless University of use 00:00:00 tobacco [facility] Sex Ass[birth year] At [birth year] [facility] 00:00:00 00:00:00 Smoking Status Start Date Stop Date Source Ex-smoker 2022-02-11 00:00:00 2022-02-11 00:00:00 [facility] [place] [facility] Medications Ordered Filled Start Stop Current Ordering Indication Dosage Frequency Signature Comments Components Source Medication Medication Date Date Medication? Clinician (SIG) Name Name ravindra Yes [id number] Take one Univers ne-tenofovi 6-12 po daily ity of r alafen 00:00: [place] (DESCOVY) 00 Medical tablet Branch raltegravir Yes [id number] 400mg Take 1 Univers (ISENTRESS) 6-12 tablet by ity of 400 mg 00:00: mouth in [place] tablet 00 the Medical morning Branch and 1 tablet in the evening. DESCOVY Yes [id number] Take one Univers tablet 5-08 po daily ity of 00:00: [place] 00 Medical Branch raltegravir Yes [id number] 400mg Take 1 Univers (ISENTRESS) 5-08 tablet by ity of 400 mg 00:00: mouth in [place] tablet 00 the Medical morning Branch and 1 tablet in the evening. DESCOVY 2022- No [id number] Take one Univers tablet 5-08 06-12 po daily ity of 00:00: 00:00 [place] 00 :00 Medical Branch raltegravir 2022- No [id number] 400mg Take 1 Univers (ISENTRESS) 5-08 06-12 tablet by it y of 400 mg 00:00: 00:00 mouth in [place] tablet 00 :00 the Medical morning Branch and 1 tablet in the evening. emtmarianabi Yes [id number] Take one Univers ne-tenofovi 4-04 po daily ity of r alafen 00:00: [place] (DESCOVY) 00 Medical tablet Branch emtricitabi Yes [id number] Take one Univers ne-tenofovi 4-04 po daily ity of r alafen 00:00: [place] (DESCOVY) 00 Medical tablet Branch emtricitabi 2022- No [id number] Take one Univers ne-tenofovi 4-04 05-08 po [...] 00 :00 ONCE, 1 Medical dose, On [facility] 05/10/22 at 1245, JOE NaCl 0.9% 2021-05 No 1000mL at 999 Uni vers (NS) bolus 07-11 mL/hr, ity of infusion 17:45: 20:00 1,000 mL, [place] as 1,000 mL 00 :00 IV Medical Infusion, Branch ONCE, 1 dose, On [facility] 05/10/22 at 1145, JOE cefpodoxime 2021-05- No [id number] 100mg Take 1 Univers 100 mg 2-17 12-25 tablet by ity of tablet 00:00: 05:59 mouth in [place] 00 :00 the Medical morning Branch and 1 tablet in the evening. Do all this for 7 days. cefpodoxime 2021-05- No [id number] 100mg Take 1 Univers 100 mg 2-17 12-25 tablet by ity of tablet 00:00: 05:59 mouth in [place] 00 :00 the [facility] morning Branch and 1 tablet in the evening. Do all this for 7 days. cefpodoxime 2021-05- No [id number] 100mg Take 1 Univers 100 mg 2-17 12-25 tablet by ity of tablet 00:00: 05:59 mouth in [place] 00 :00 the Medical morning Branch and 1 tablet in the evening. Do all this for 7 days. butalbital- 2021-05- No 1{tbl} 1 tablet, Univers acetaminoph 2-16 12-15 Oral, ity of en-caff 00:15: 23:19 ONCE, 1 [place] (ESGIC) 00 :00 dose, On Medical 50-325-40 [place] Branch mg tablet 1 05/06/22 tablet at 1815, JOE NaCl 0.9% 2021-05 No 500mL at 999 Univ ers (NS) bolus 2-16 12-16 mL/hr, 500 it y of infusion 00:00: 00:17 mL, IV [place] 500 mL 00 :00 Infusion, Medical ONCE, 1 Branch dose, On [facility] 05/06/22 at 1800, JOE ketorolac 2021-05 No 15mg 15 mg, Unive rs (TORADOL) 2-15 12-15 Slow IV ity of injection 22:00: 22:19 Push, [place] 15 mg 00 :00 ONCE, 1 Medical dose, On Branch [facility] 05/06/22 at 1600, JOE NaCl 0.9% 2021-05- No 1000mL at 999 Uni vers (NS) bolus 2-15 12-15 mL/hr, ity of infusion 22:00: 23:41 1,000 mL, [place] as 1,000 mL 00 :00 IV Medical Infusion, Branch ONCE, 1 dose, On [facility] 05/06/22 at 1600, JOE ondansetron 2021-05 No 8mg 8 mg, Slow Univers (ZOFRAN 2-15 12-15 IV Push, ity of (PF)) 21:15: 22:19 ONCE, 1 [place] injection 8 00 :00 dose, On Medi porfirio mg [facility]3] 05/06/22 at 1515, JOE ondansetron 2021-05 Yes [id number] 1-2 U nivers 4 mg tablet 2-15 tablets ity o f 00:00: every 8 [place] 00 hours as Medical needed for Branch nausea benzonatate 2021-05 Yes [id number] 200mg Take 1 Univers 200 mg 2-15 capsule by ity of capsule 00:00: mouth 3 (three) Medical times Branch daily as needed for Cough. albuterol 2021-05 Yes [id number] 2{puff} Inhale 2 Univers 90 2-15 Puffs ity of mcg/actuati 00:00: every 4 [place] as on inhaler 00 (four) Medical hours as Branch needed for Wheezing or Shortness of Breath. butalbital- 2021-05 Yes [id number] 1{tbl} Take 1 Univers acetaminoph 2-15 tablet by ity of en-caff 00:00: mouth [place] 50-325-40 00 every 4 Medical mg tablet (four) Branch hours as needed (headache) . ondansetron 2021-05 Yes [id number] 1-2 U nivers 4 mg tablet 2-15 tablets ity o f 00:00: every 8 [place] 00 hours as Medical needed for Branch nausea benzonatate 2021-05 Yes [id number] 200mg Take 1 Univers 200 mg 2-15 capsule by ity of capsule 00:00: mouth 3 (three) Medical times Branch daily as needed for Cough. albuterol 2021-05 Yes [id number] 2{puff} Inhale 2 Univers 90 2-15 Puffs ity of mcg/actuati 00:00: every 4 [place] on inhaler 00 (four) Medical hours as Branch needed for Wheezing or Shortness of Breath. butalbital- 2021-05 Yes [id number] 1{tbl} Take 1 Univers acetaminoph 2-15 tablet by ity of en-caff 00:00: mouth [place] 50-325-40 00 every 4 Medical mg tablet (four) Branch hours as needed (headache) . ondansetron 2021-05 Yes [id number] 1-2 U nivers 4 mg tablet 2-15 tablets ity o f 00:00: every 8 [place] 00 hours as Medical needed for Branch nausea benzonatate 2021-05 Yes [id number] 200mg Take 1 Univers 200 mg 2-15 capsule by ity of capsule 00:00: mouth 3 00 (three) Medical times Branch daily as needed for Cough. albuterol 2021-05 Yes [id number] 2{puff} Inhale 2 Univers 90 2-15 Puffs ity of mcg/actuati 00:00: every 4 [place] as on inhaler 00 (four) Medical hours as Branch needed for Wheezing or Shortness of Breath. butalbital- 2021-05 Yes [id number] 1{tbl} Take 1 Univers acetaminoph 2-15 tablet by ity of en-caff 00:00: mouth [place] 50-325-40 00 every 4 Medical mg tablet (four) Branch hours as needed (headache) . ondansetron 2021-05 Yes [id number] 1-2 U nivers 4 mg tablet 2-15 tablets ity o f 00:00: every 8 [place] 00 hours as Medical needed for Branch nausea benzonatate 2021-05 Yes [id number] 200mg Take 1 Univers 200 mg 2-15 capsule by ity of capsule 00:00: mouth 3 [place] 00 (three) Medical times Branch daily as needed for Cough. albuterol 2021-05 Yes [id number] 2{puff} Inhale 2 Univers 90 2-15 Puffs ity of mcg/actuati 00:00: every 4 [place] as on inhaler 00 (four) Medical hours as Branch needed for Wheezing or Shortness of Breath. butalbital- 2021-05 Yes [id number] 1{tbl} Take 1 Univers acetaminoph 2-15 tablet by ity of en-caff 00:00: mouth [place] 50-325-40 00 every 4 Medical mg tablet (four) Branch hours as needed (headache) . ondansetron 2021-05 Yes [id number] 1-2 U nivers 4 mg tablet 2-15 tablets ity o f 00:00: every 8 [place] 00 hours as Medical needed for Branch nausea benzonatate 2021-05 Yes [id number] 200mg Take 1 Univers 200 mg 2-15 capsule by ity of capsule 00:00: mouth 3 [place] 00 (three) Medical times Branch daily as needed for Cough. albuterol 2021-05 Yes [id number] 2{puff} Inhale 2 Univers 90 2-15 Puffs ity of mcg/actuati 00:00: every 4 [place] as on inhaler 00 (four) Medical hours as Branch needed for Wheezing or Shortness of Breath. butalbital- 2021-05 Yes [id number] 1{tbl} Take 1 Univers acetaminoph 2-15 tablet by ity of en-caff 00:00: mouth [place] 50-325-40 00 every 4 Medical mg tablet (four) Branch hours as needed (headache) . ondansetron 2021-05 Yes [id number] 1-2 U nivers 4 mg tablet 2-15 tablets ity o f 00:00: every 8 [place] 00 hours as Medical needed for Branch nausea benzonatate 2021-05 Yes [id number] 200mg Take 1 Univers 200 mg 2-15 capsule by ity of capsule 00:00: mouth 3 [place] 00 (three) Medical times Branch daily as needed for Cough. albuterol 2021-05 Yes [id number] 2{puff} Inhale 2 Univers 90 2-15 Puffs ity of mcg/actuati 00:00: every 4 [place] as on inhaler 00 (four) Medical hours as Branch needed for Wheezing or Shortness of Breath. butalbital- 2021-05 Yes [id number] 1{tbl} Take 1 Univers acetaminoph 2-15 tablet by ity of en-caff 00:00: mouth [place] 50-325-40 00 every 4 Medical mg tablet (four) Branch hours as needed (headache) . ondansetron 2021-05 Yes [id number] 1-2 U nivers 4 mg tablet 2-15 tablets ity o f 00:00: every 8 [place] 00 hours as Medical needed for Branch nausea benzonatate 2021-05 Yes [id number] 200mg Take 1 Univers 200 mg 2-15 capsule by ity of capsule 00:00: mouth 3 00 (three) Medical times Branch daily as needed for Cough. albuterol 2021-05 Yes [id number] 2{puff} Inhale 2 Univers 90 2-15 Puffs ity of mcg/actuati 00:00: every 4 [place] on inhaler 00 (four) Medical hours as Branch needed for Wheezing or Shortness of Breath. butalbital- 2021-05 Yes [id number] 1{tbl} Take 1 Univers acetaminoph 2-15 tablet by ity of en-caff 00:00: mouth [place] 50-325-40 00 every 4 Medical mg tablet (four) Branch hours as needed (headache) . ondansetron 2021-05 Yes [id number] 1-2 U nivers 4 mg tablet 2-15 tablets ity o f 00:00: every 8 [place] 00 hours as Medical needed for Branch nausea benzonatate 2021-05 Yes [id number] 200mg Take 1 Univers 200 mg 2-15 capsule by ity of capsule 00:00: mouth 3 [place] 00 (three) Medical times Branch daily as needed for Cough. albuterol 2021-05 Yes [id number] 2{puff} Inhale 2 Univers 90 2-15 Puffs ity of mcg/actuati 00:00: every 4 [place] on inhaler 00 (four) Medical hours as Branch needed for Wheezing or Shortness of Breath. butalbital- 2021-05 Yes [id number] 1{tbl} Take 1 Univers acetaminoph 2-15 tablet by ity of en-caff 00:00: mouth [place] 50-325-40 00 every 4 Medical mg tablet (four) Branch hours as needed (headache) . ondansetron 2021-05 Yes [id number] 1-2 U nivers 4 mg tablet 2-15 tablets ity o f 00:00: every 8 [place] 00 hours as Medical needed for Branch nausea benzonatate 2021-05 Yes [id number] 200mg Take 1 Univers 200 mg 2-15 capsule by ity of capsule 00:00: mouth 3 00 (three) Medical times Branch daily as needed for Cough. albuterol 2021-05 Yes [id number] 2{puff} Inhale 2 Univers 90 2-15 Puffs ity of mcg/actuati 00:00: every 4 [place] as on inhaler 00 (four) Medical hours as Branch needed for Wheezing or Shortness of Breath. butalbital- 2021-05 Yes [id number] 1{tbl} Take 1 Univers acetaminoph 2-15 tablet by ity of en-caff 00:00: mouth [place] 50-325-40 00 every 4 Medical mg tablet (four) Branch hours as needed (headache) . ondansetron 2021-05 Yes [id number] 1-2 U nivers 4 mg tablet 2-15 tablets ity o f 00:00: every 8 [place] 00 hours as Medical needed for Branch nausea benzonatate 2021-05 Yes [id number] 200mg Take 1 Univers 200 mg 2-15 capsule by ity of capsule 00:00: mouth 3 [place] 00 (three) Medical times Branch daily as needed for Cough. albuterol 2021-05 Yes [id number] 2{puff} Inhale 2 Univers 90 2-15 Puffs ity of mcg/actuati 00:00: every 4 [place] on inhaler 00 (four) Medical hours as Branch needed for Wheezing or Shortness of Breath. butalbital- 2021-05 Yes [id number] 1{tbl} Take 1 Univers acetaminoph 2-15 tablet by ity of en-caff 00:00: mouth [place] 50-325-40 00 every 4 Medical mg tablet (four) Branch hours as needed (headache) . [facility] 2021-05- No [id number] 2{tbl} Take 2 Univers r-ritonavir 2-15 12-21 tablets by i ty of (PAXLOVID, 00:00: 05:59 mouth in [place] EUA,) 300 00 :00 the Medical mg (150 mg morning Branch x 2)-100 mg and 2 tablet tablets in the evening. Do all this for 5 days. [facility] 2021-05- No [id number] 2{tbl} Take 2 Univers r-ritonavir 2-15 12-21 tablets by i ty of (PAXLOVID, 00:00: 05:59 mouth [place] EUA,) 300 00 :00 the Medical mg (150 mg morning Branch x 2)-100 mg and 2 tablet tablets in the evening. Do all this for 5 days. [facility] 2021-05- No [id number] 2{tbl} Take 2 Univers r-ritonavir 2-15 12-21 tablets by i ty of (PAXLOVID, 00:00: 05:59 mouth [place] EUA,) 300 00 :00 the Medical mg (150 mg morning Branch x 2)-100 mg and 2 tablet tablets in the evening. Do all this for 5 days. [facility] 2021-05- No [id number] 2{tbl} Take 2 Univers r-ritonavir 2-15 12-21 [...] 04/22/22 at 1645, Routine amoxicillin 2021-05 Yes [id number] 1{tbl} Take 1 Univers -clavulanat 2-01 [id number] tablet by i ty of e 875-125 00:00: mouth [place] mg per 00 every 12 Medical tablet (twelve) Branch hours. ondansetron 2021-05 Yes [id number] 4mg Take 1 Univers 4 mg 2- 689620 tablet by ity of disintegrat 00:00: mouth [place] ing tablet 00 every 8 Medica l (eight) Branch hours as needed for Nausea and Vomiting (N/V). amoxicillin 2021-05 Yes [id number] 1{tbl} Take 1 Univers -clavulanat 2- [id number] tablet by i ty of e 875-125 00:00: mouth [place] mg per 00 every 12 Medical tablet (twelve) Branch hours. ondansetron 2021-05 Yes [id number] 4mg Take 1 Univers 4 mg 2- [id number] tablet by ity of disintegrat 00:00: mouth [place] ing tablet 00 every 8 Medica l (eight) Branch hours as needed for Nausea and Vomiting (N/V). amoxicillin 2021-05 Yes [id number] 1{tbl} Take 1 Univers -clavulanat 2-01 [id number] tablet by i ty of e 875-125 00:00: mouth [place] mg per 00 every 12 Medical tablet (twelve) Branch hours. ondansetron 2021-05 Yes [id number] 4mg Take 1 Univers 4 mg 2-01 [id number] tablet by ity of disintegrat 00:00: mouth [place] ing tablet 00 every 8 Medica l (eight) Branch hours as needed for Nausea and Vomiting (N/V). amoxicillin 2021-05 Yes [id number] 1{tbl} Take 1 Univers -clavulanat 2-01 [id number] tablet by i ty of e 875-125 00:00: mouth [place] mg per 00 every 12 Medical tablet (twelve) Branch hours. ondansetron 2021-05 Yes [id number] 4mg Take 1 Univers 4 mg 2-01 [id number] tablet by ity of disintegrat 00:00: mouth [place] ing tablet 00 every 8 Medica l (eight) Branch hours as needed for Nausea and Vomiting (N/V). amoxicillin 2021-05 Yes [id number] 1{tbl} Take 1 Univers -clavulanat 2-01 [id number] tablet by i ty of e 875-125 00:00: mouth [place] mg per 00 every 12 Medical tablet (twelve) Branch hours. ondansetron 2021-05 Yes [id number] 4mg Take 1 Univers 4 mg 2-01 [id number] tablet by ity of disintegrat 00:00: mouth [place] ing tablet 00 every 8 Medica l (eight) Branch hours as needed for Nausea and Vomiting (N/V). amoxicillin 2021-05 Yes [id number] 1{tbl} Take 1 Univers -clavulanat 2-01 [id number] tablet by i ty of e 875-125 00:00: mouth [place] mg per 00 every 12 Medical tablet (twelve) Branch hours. ondansetron 2021-05 Yes [id number] 4mg Take 1 Univers 4 mg 2- [id number] tablet by ity of disintegrat 00:00: mouth [place] ing tablet 00 every 8 Medica l (eight) Branch hours as needed for Nausea and Vomiting (N/V). amoxicillin 2021-05 Yes [id number] 1{tbl} Take 1 Univers -clavulanat 2-01 [id number] tablet by i ty of e 875-125 00:00: mouth [place] mg per 00 every 12 Medical tablet (twelve) Branch hours. ondansetron 2021-05 Yes [id number] 4mg Take 1 Univers 4 mg 2-01 [id number] tablet by ity of disintegrat 00:00: mouth [place] ing tablet 00 every 8 Medica l (eight) Branch hours as needed for Nausea and Vomiting (N/V). amoxicillin 2021-05 Yes [id number] 1{tbl} Take 1 Univers -clavulanat 2-01 [id number] tablet by i ty of e 875-125 00:00: mouth [place] mg per 00 every 12 Medical tablet (twelve) Branch hours. ondansetron 2021-05 Yes [id number] 4mg Take 1 Univers 4 mg 2-01 [id number] tablet by ity of disintegrat 00:00: mouth [place] ing tablet 00 every 8 Medica l (eight) Branch hours as needed for Nausea and Vomiting (N/V). amoxicillin 2021-05 Yes [id number] 1{tbl} Take 1 Univers -clavulanat 2-01 [id number] tablet by i ty of e 875-125 00:00: mouth [place] mg per 00 every 12 Medical tablet (twelve) Branch hours. ondansetron 2021-05 Yes [id number] 4mg Take 1 Univers 4 mg 2- [id number] tablet by ity of disintegrat 00:00: mouth [place] ing tablet 00 every 8 Medica l (eight) Branch hours as needed for Nausea and Vomiting (N/V). amoxicillin 2021-05 Yes [id number] 1{tbl} Take 1 Univers -clavulanat 2-01 [id number] tablet by i ty of e 875-125 00:00: mouth [place] mg per 00 every 12 Medical tablet (twelve) Branch hours. ondansetron 2021-05 Yes [id number] 4mg Take 1 Univers 4 mg 2- [id number] tablet by ity of disintegrat 00:00: mouth [place] ing tablet 00 every 8 Medica l (eight) Branch hours as needed for Nausea and Vomiting (N/V). amoxicillin 2021-05 Yes [id number] 1{tbl} Take 1 Univers -clavulanat 2-01 [id number] tablet by i ty of e 875-125 00:00: mouth [place] mg per 00 every 12 Medical tablet (twelve) Branch hours. ondansetron 2021-05 Yes [id number] 4mg Take 1 Univers 4 mg 2- [id number] tablet by ity of disintegrat 00:00: mouth [place] ing tablet 00 every 8 Medica l (eight) Branch hours as needed for Nausea and Vomiting (N/V). amoxicillin 2021-05 Yes [id number] 1{tbl} Take 1 Univers -clavulanat 2-01 [id number] tablet by i ty of e 875-125 00:00: mouth [place] mg per 00 every 12 Medical tablet (twelve) Branch hours. ondansetron 2021-05 Yes [id number] 4mg Take 1 Univers 4 mg 2-01 [id number] tablet by ity of disintegrat 00:00: mouth [place] ing tablet 00 every 8 Medica l (eight) Branch hours as needed for Nausea and Vomiting (N/V). zoster 2021-05- No [id number] .5mL 0.5 mL by Univers vaccine, 0-05 03- 9104 Intramuscu ity of recombinant 00:00: 04:59 lar route [place] (SHINGRIX, 00 :00 once now Medic al PF,) for 1 Branch injection dose. And repeat in 2-6 months zoster 2021-05- No [id number] .5mL 0.5 mL by Univers vaccine, 0-05 03- 9104 Intramuscu ity of recombinant 00:00: 04:59 lar route [place] (SHINGRIX, 00 :00 once now Medic al PF,) for 1 Branch injection dose. And repeat in 2-6 months zoster 2021-05- No [id number] .5mL 0.5 mL by Univers vaccine, 0-05 [...] o f 1 mg tablet 19:28: at [place] [address] bedtime. Medical Branch traZODone 0 Yes 50mg Take 50 mg Un matt 100 mg 9-27 by mouth ity of tablet 19:28: at [place] [address] bedtime. Medical Branch hydralAZINE 2021-0 Yes 25mg [...] o f 1 mg tablet 19:28: at [place] [address] bedtime. Medical Branch traZODone 2021-0 Yes 50mg Take 50 mg Un matt 100 mg 9-27 by mouth ity of tablet 19:28: at [place] [address] bedtime. Medical Branch hydralAZINE 2021-0 Yes 25mg [...] o f 1 mg tablet 19:28: at [place] [address] bedtime. Medical Branch traZODone 2-0 Yes 50mg Take 50 mg Un matt 100 mg 9-27 by mouth ity of tablet 19:28: at [place] [address] bedtime. Medical Branch hydralAZINE 2-0 Yes 25mg [...] o f 1 mg tablet 19:28: at [place] [address] bedtime. Medical Branch traZODone 2021-0 Yes 50mg Take 50 mg Un matt 100 mg 9-27 by mouth ity of tablet 19:28: at [place] [address] bedtime. Medical Branch hydralAZINE 2021-0 Yes 25mg [...] o f 1 mg tablet 19:28: at [place] [address] bedtime. Medical Branch traZODone 2021-0 Yes 50mg Take 50 mg Un matt 100 mg 9-27 by mouth ity of tablet 19:28: at [place] [address] bedtime. Medical Branch hydralAZINE 2021-0 Yes 25mg [...] o f 1 mg tablet 19:28: at [place] [address] bedtime. Medical Branch traZODone 2021-0 Yes 50mg Take 50 mg Un matt 100 mg 9-27 by mouth ity of tablet 19:28: at [place] [address] bedtime. Medical Branch hydralAZINE 2021-0 Yes 25mg [...] o f 1 mg tablet 19:28: at [place] [address] bedtime. Medical Branch traZODone 2021-0 Yes 50mg Take 50 mg Un matt 100 mg 9-27 by mouth ity of tablet 19:28: at [place] [address] bedtime. Medical Branch hydralAZINE 2021-0 Yes 25mg [...] o f 1 mg tablet 19:28: at [place] [address] bedtime. Medical Branch traZODone 2021-0 Yes 50mg Take 50 mg Un matt 100 mg 9- by mouth ity of tablet 19:28: at [place] [address] bedtime. Medical Branch hydralAZINE 2021-0 Yes 25mg [...] o f 1 mg tablet 19:28: at [place] [address] bedtime. Medical Branch traZODone 2-0 Yes 50mg Take 50 mg Un matt 100 mg 9-27 by mouth ity of tablet 19:28: at [place] [address] bedtime. Medical Branch hydralAZINE 2021-0 Yes 25mg [...] 100 mg 04 (two) Medical tablet times [place] daily. amLODIPine 2021-0 Yes 10mg Take 10 mg U nivers (NORVASC) 9- by mouth ity of 10 mg 19:28: daily. [place] tablet 04 Medical Branch clonazePAM 2021-0 Yes 1mg Take 1 mg Un matt (KLONOPIN) 9-27 by mouth ity o f 1 mg tablet 19:28: at [place] [address] bedtime. Medical Branch traZODone 2-0 Yes 50mg Take 50 mg Un matt 100 mg 9-27 by mouth ity of tablet 19:28: at [place] [address] bedtime. Medical Branch hydralAZINE 2-0 Yes 25mg [...] o f 1 mg tablet 19:28: at [place] [address] bedtime. Medical Branch traZODone 2021-0 Yes 50mg Take 50 mg Un matt 100 mg 9-27 by mouth ity of tablet 19:28: at [place] [address] bedtime. Medical Branch hydralAZINE 2021-0 Yes 25mg [...] o f 1 mg tablet 19:28: at [place] [address] bedtime. Medical Branch traZODone 2021-0 Yes 50mg Take 50 mg Un matt 100 mg 9-27 by mouth ity of tablet 19:28: at [place] [address] bedtime. Medical Branch hydralAZINE 2021-0 Yes 25mg [...] o f 1 mg tablet 19:28: at [place] [address] bedtime. Medical Branch traZODone 2021-0 Yes 50mg Take 50 mg Un matt 100 mg 9- by mouth ity of tablet 19:28: at [place] [address] bedtime. Medical Branch hydralAZINE 2021-0 Yes 25mg [...] o f 1 mg tablet 19:28: at [place] [address] bedtime. Medical Branch traZODone 2022-0 Yes 50mg Take 50 mg Un matt 100 mg 9-27 by mouth ity of tablet 19:28: at [place] [address] bedtime. Medical Branch hydralAZINE 2-0 Yes 25mg [...] o f 1 mg tablet 19:28: at [place] [address] bedtime. Medical Branch traZODone 2-0 Yes 50mg Take 50 mg Un matt 100 mg 9-27 by mouth ity of tablet 19:28: at [place] [address] bedtime. Medical Branch hydralAZINE 2021-0 Yes 25mg [...] o f 1 mg tablet 19:28: at [place] [address] bedtime. Medical Branch traZODone 2022-0 Yes 50mg Take 50 mg Un matt 100 mg 9-27 by mouth ity of tablet 19:28: at [place] [address] bedtime. Medical Branch hydralAZINE 2-0 Yes 25mg [...] o f 1 mg tablet 19:28: at [place] [address] bedtime. Medical Branch traZODone 2-0 Yes 50mg Take 50 mg Un matt 100 mg 9-27 by mouth ity of tablet 19:28: at [place] [address] bedtime. Medical Branch hydralAZINE 2-0 Yes 25mg [...] by mouth ity of tablet 19:28: at [place] [address] bedtime. Medical Branch hydralAZINE 2021-0 Yes 25mg [...] o f 1 mg tablet 19:28: at [place] [address] bedtime. Medical Branch traZODone 2021-0 Yes 50mg Take 50 mg Un matt 100 mg 9-27 by mouth ity of tablet 19:28: at [place] [address] bedtime. Medical Branch hydralAZINE 2021-0 Yes 25mg [...] o f 1 mg tablet 19:28: at [place] [address] bedtime. Medical Branch traZODone Yes 50mg Take 50 mg Un matt 100 mg 02-16 by mouth ity of tablet 19:28: at [place] [address] bedtime. [facility] Branch cefpodoxime 2021- No [id number] 200mg Take 1 [facility] 200 mg 02-16 tablet by ity of tablet 00:00: 04:59 mouth in [place] 00 :00 the Medical morning Branch and 1 tablet in the evening. Do all this for 3 days. cefpodoxime 2021- No [id number] 200mg Take 1 [facility] 200 mg 02-16 tablet by ity of tablet 00:00: 04:59 mouth in [place] 00 :00 the [facility] and 1 tablet in the evening. Do all this for 3 days. haloperidol 2021- No 2mg 2 mg, Slow Univers lactate 02-15 IV Push, ity of (HALDOL) 09:00: 09:12 ONCE, 1 [place] injection 2 00 :00 dose, On Medi porfirio mg Mon [place] 02/15/22 at 0400, Routine hydroCHLORO Yes 25mg 25 mg, Univ ers thiazide 9-25 Oral, ity of (ESIDRIX) 14:00: DAILY, [place] capsule 25 00 First dose Med ical mg on [place] Branch 02/14/22 at 0900, Until Discontinu ed, Routine butalbital- Yes 1{tbl} 1 tablet, [facility] acetaminoph 24 Oral, ity of en-caff 18:46: Q6HPRN, [place] (ESGIC) 06 Starting Medical 50-325-40 on [place] [...] [place] mg 00 on [facility] Medical 02/11/22 at Branch 1300, Until Discontinu ed, Routine raltegravir 2021-0 Yes 400mg 400 mg, Un matt (ISENTRESS) 02-11 Oral, BID, it y of tablet 400 18:00: First dose [place] mg 00 on [facility] Medical 02/11/22 at Branch 1300, Until Discontinu ed, JOE metoprolol 2021-0 Yes 100mg 100 mg, Uni vers tartrate 02-11 Oral, BID, ity o f (LOPRESSOR) 18:00: First dose [place] tablet 100 00 on [facility] Medical mg 02/11/22 at Branch 1300, Until Discontinu ed, Routine lisinopriL 0 Yes 40mg 40 mg, Unive rs (PRINIVIL,Z 02-11 Oral, BID, it y of ESTRIL) 18:00: [place] tablet 40 00 on [facility] Medical mg 02/11/22 at Branch 1300, Until Discontinu ed, Routine emtricitabi 0 Yes 1{tbl} 1 tablet[facility] Oral, ity of r alafen 18:00: DAILY, [place] (DESCOVY) 00 First dose Medi porfirio tablet 1 on [facility]3] tablet 02/11/22 at 1300, Until Discontinu ed, Routine ipratropium 0 Yes .5mg 0.5 mg, Uni vers (ATROVENT) 02-11 Inhalation ity of 0.02 % 17:57: , QIDPRN, [place] nebulizer 10 Starting Medica l solution on [facility] Branch 0.5 mg 02/11/22 at 1257, Until Discontinu ed, Routine, Wheezing, Shortness of Breath amLODIPine 2021-0 Yes 10mg 10 mg, Unive rs (NORVASC) 02-11 Oral, ity of tablet 10 17:30: DAILY, [place] mg 00 First dose Medical (after Branch last modificati on) on [facility] 02/11/22 at 1230, Until Discontinu ed, Routine hydrALAZINE 0 2022- No 25mg 25 mg, Uni vers (APRESOLINE 02-11- Oral, ity of ) tablet 25 17:30: 12:54 DAILY, [place] mg 00 :55 First dose Medical (after Branch last modificati on) on [facility] 02/11/22 at 1230, Until Discontinu ed, Routine HYDROcodone 2021- No 1{tbl} 1 tablet, Univers -acetaminop 02-11 Oral, ity of hen (NORCO 14:11: 17:37 Q6HPRN, [place] 5) 5-325 mg 03 :24 Starting Medi porfirio tablet 1 on [facility] Branch tablet 02/11/22 at 0911, Until Tue02/12/22 at 1237, Routine, Pain (scale 7-10) melatonin Yes 3mg 3 mg, Univers (MELATIN) 02-11 Oral, ity of tablet 3 mg 14:08: QHSPRN, [place] 17 Starting Medical on [facility] Branch 02/11/22 at 0908, Until Discontinu ed, Routine, Insomnia acetaminoph 2021- No 1{tbl} 1 tablet, Univers en-codeine 02-11 Oral, ity of (TYLENOL 14:06: 17:37 [facility] [place] #3) 300-30 19 :24 Starting Medic al mg tablet 1 on [facility]3] tablet 02/11/22 at 0906, Until Tue02/12/22 at 1237, Routine, Pain (scale 4-6) sennosides- Yes 1{tbl} 1 tablet, Univers docusate 02-11 Oral, ity of sodium 14:06: QDAILYPRN, [place] (SENOKOT-S) 09 Starting Medi porfirio 8.6-50 mg on [facility]3] per tablet 02/11/22 at 1 tablet 0906, Until Discontinu ed, Routine, Constipati on ondansetron 0 Yes 4mg 4 mg, Slow Univers (ZOFRAN 02-11 IV Push, ity of (PF)) 14:05: [place] injection 4 59 Starting Medi porfirio mg on [facility] Branch 02/11/22 at 0905, Until Discontinu [...] 25 mg 09:10: daily. [facility] 54 Medical Branch amLODIPine 0 Yes 10mg Take 10 mg U nivers (NORVASC) 02-11 by mouth ity of 10 mg 09:10: daily. [facility] 54 [facility] Branch piperacilli 2021- No 3.375g 3.375 g, [...] of therapy: 72 hours iopamidol 2021- No [id number] 60mL 60 mL, Univers (ISOVUE 02-11 Intravenou [...] 02/11/22 at 0015, JOE emtricitabi 0 Yes [id number] Take one Univers ne-tenofovi 9-12 po daily ity of r alafen 00:00: [place] (DESCOVY) Medical tablet Branch emtricitabi Yes [id number] Take one Univers ne-tenofovi 9-12 po daily ity of r alafen 00:00: [place] (DESCOVY) 00 Medical tablet Branch emtricitabi Yes [id number] Take one Univers ne-tenofovi 9-12 po daily ity of r alafen 00:00: [place] (DESCOVY) 00 Medical tablet Branch emtricitabi Yes [id number] Take one Univers ne-tenofovi 9-12 po daily ity of r alafen 00:00: [place] (DESCOVY) 00 Medical tablet Branch emtricitabi Yes [id number] Take one Univers ne-tenofovi 9-12 po daily ity of r alafen 00:00: [place] (DESCOVY) 00 Medical tablet Branch emtricitabi Yes [id number] Take one Univers ne-tenofovi 9-12 po daily ity of r alafen 00:00: [place] (DESCOVY) 00 Medical tablet Branch [facility] Yes [id number] Take one Univers ne-tenofovi 9-12 po daily ity of r alafen 00:00: [place] (DESCOVY) 00 Medical tablet Branch emtricita Yes [id number] Take one Univers ne-tenofovi 9-12 po daily ity of r alafen 00:00: [place] (DESCOVY) 00 Medical tablet Branch emtricita Yes [id number] Take one Univers ne-tenofovi 9-12 po daily ity of r alafen 00:00: [place] (DESCOVY) 00 Medical tablet Branch emtricita Yes [id number] Take one Univers ne-tenofovi 9-12 po daily ity of r alafen 00:00: [place] (DESCOVY) 00 Medical tablet Branch [facility] Yes [id number] Take one Univers ne-tenofovi 9-12 po daily ity of r alafen 00:00: [place] (DESCOVY) 00 Medical tablet Branch [facility] Yes [id number] Take one Univers ne-tenofovi 9-12 po daily ity of r alafen 00:00: [place] (DESCOVY) 00 Medical tablet Branch [facility] Yes [id number] Take one Univers ne-tenofovi 9-12 po daily ity of r alafen 00:00: [place] (DESCOVY) 00 Medical tablet Branch emtricita Yes [id number] Take one Univers ne-tenofovi 9-12 po daily ity of r alafen 00:00: [place] (DESCOVY) 00 Medical tablet Branch emtricita Yes [id number] Take one Univers ne-tenofovi 9-12 po daily ity of r alafen 00:00: [place] (DESCOVY) 00 Medical tablet Branch emtricita Yes [id number] Take one Univers ne-tenofovi 9-12 po daily ity of r alafen 00:00: [place] (DESCOVY) 00 Medical tablet Branch emtricita Yes [id number] Take one Univers ne-tenofovi 9-12 po daily ity of r alafen 00:00: [place] (DESCOVY) 00 Medical tablet Branch emtricitabi 2022- No [id number] Take one Univers ne-tenofovi 02-01-04 po daily ity of r alafen 00:00: 00:00 [place] (DESCOVY) 00 :00 Medical tablet Branch emtricitabi 2021-0 3- No [id number] Take one Univers ne-arianofovi 02-01- po daily ity of r alafen 00:00: 00:00 [place] (DESCOVY) 00 :00 Medical tablet Branch naproxen 2021-0 Yes [id number] 500mg Take 1 U nivers (NAPROSYN) 7-24 tablet by ity of 500 mg 00:00: mouth in [place] tablet 00 the Medical morning Branch and 1 tablet in the evening. Take with meals. methocarbam 2021-0 Yes [id number] 500mg Take 1 Univers oL 500 mg 7-24 tablet by ity o f tablet 00:00: mouth 4 [place] ([facility] Medical times [place] daily. naproxen 2021-0 Yes [id number] 500mg Take 1 U nivers (NAPROSYN) 7-24 tablet by ity of 500 mg 00:00: mouth in [place] tablet 00 the Medical morning Branch and 1 tablet in the evening. Take with meals. methocarbam 2021-0 Yes [id number] 500mg Take 1 Univers oL 500 mg 7-24 tablet by ity o f tablet 00:00: mouth 4 [place] [facility] Medical times Branch daily. naproxen 2-0 Yes [id number] 500mg Take 1 U nivers (NAPROSYN) 7-24 tablet by ity of 500 mg 00:00: mouth in [place] tablet 00 the Medical morning Branch and 1 tablet in the evening. Take with meals. methocarbam 2022-0 Yes [id number] 500mg Take 1 Univers oL 500 mg 7-24 tablet by ity o f tablet 00:00: mouth 4 [place] [facility] Medical times Branch daily. naproxen 2-0 2022- No [id number] 500mg Take 1 Univers (NAPROSYN) 7-24 10-14 tablet by ity of 500 mg 00:00: 00:00 mouth in [place] tablet 00 :00 the Medical morning Branch and 1 tablet in the evening. Take with meals. methocarbam 2021- No [id number] 500mg Take 1 Univers oL 500 mg 12-13 tablet by ity of tablet 00:00: 00:00 mouth 4 [place] 00 :00 (four) Medical times Branch daily. naproxen 2021- No [id number] 500mg Take 1 Univers (NAPROSYN) 12-13 tablet by ity of 500 mg 00:00: 00:00 mouth in [place] tablet 00 :00 the Medical morning Branch and 1 tablet in the evening. Take with meals. methocarbam 2021- No [id number] 500mg Take 1 Univers oL 500 mg 12-13 tablet by ity of tablet 00:00: 00:00 mouth 4 [place] 00 :00 (four) Medical times Branch daily. esomeprazol 2021- No 40mg Take 40 mg Univers e (NEXIUM) 11-20 by mouth 2 it y of 40 mg 09:12: 00:00 (two) [place] capsule 03 :00 times Medical daily. Branch amiodarone No 100mg Take 100 U nivers 100 mg 11-20 mg by ity of tablet 09:11: 00:00 mouth [place] 57 :00 daily. Medical Branch apixaban No 5mg Take 5 mg Uni vers (ELIQUIS) 5 11-20 by mouth 2 i ty of mg tablet 09:11: 00:00 (two) [place] 35 :00 times Medical daily. Branch traZODONE 2021- No Take by [facility] [place] [facility] ers (DESYREL) 11-20 mouth at ity o f 10 mg/mL 09:10: 00:00 [place]time. [place] oral 28 :00 Medical suspension Branch hydralAZINE Yes 25mg Take 25 mg Univers (APRESOLINE 11-20 by mouth ity of ) 25 mg 08:47: daily. [place] tablet 47 Medical Branch cephALEXin 2021- No [id number] 500mg Take 1 Univers (KEFLEX) 10-24 capsule [...] 7-10). Indication s: acute pain buPROPion Yes [id number] 150mg Take 1 U nivers XL 4-12 tablet by ity of (WELLBUTRIN 00:00: mouth [place] XL) 150 mg 00 daily. Medical 24 hr Branch tablet busPIRone Yes [id number] 30mg Take 1 Un matt 30 mg 4-12 tablet by ity of tablet 00:00: mouth 2 [place] 00 (two) Medical times Branch daily. SERTraline Yes [id number] 200mg Take 2 Univers 100 mg 4-12 tablets by ity of tablet 00:00: mouth [place] 00 daily. Medical Branch buPROPion Yes [id number] 150mg Take 1 U nivers XL 4-12 tablet by ity of (WELLBUTRIN 00:00: mouth [place] XL) 150 mg 00 daily. Medical 24 hr Branch tablet busPIRone 2021-0 Yes [id number] 30mg Take 1 Un matt 30 mg 4-12 tablet by ity of tablet 00:00: mouth 2 [place] 00 (two) Medical times Branch daily. SERTraline 2021-0 Yes [id number] 200mg Take 2 Univers 100 mg 4-12 tablets by ity of tablet 00:00: mouth [place] 00 daily. Medical Branch buPROPion 2021-0 Yes [id number] 150mg Take 1 U nivers XL 4-12 tablet by ity of (WELLBUTRIN 00:00: mouth [place] XL) 150 mg 00 daily. Medical 24 hr Branch tablet busPIRone 2021-0 Yes [id number] 30mg Take 1 Un matt 30 mg 4-12 tablet by ity of tablet 00:00: mouth 2 [place] 00 (two) Medical times Branch daily. SERTraline 2021-0 Yes [id number] 200mg Take 2 Univers 100 mg 4-12 tablets by ity of tablet 00:00: mouth [place] 00 daily. Medical Branch buPROPion 2021-0 Yes [id number] 150mg Take 1 U nivers XL 4-12 tablet by ity of (WELLBUTRIN 00:00: mouth [place] XL) 150 mg 00 daily. Medical 24 hr Branch tablet busPIRone 2021-0 Yes [id number] 30mg Take 1 Un matt 30 mg 4-12 tablet by ity of tablet 00:00: mouth 2 [place] 00 (two) Medical times Branch daily. SERTraline 2021-0 Yes [id number] 200mg Take 2 Univers 100 mg 4-12 tablets by ity of tablet 00:00: mouth [place] 00 daily. Medical Branch buPROPion 2021-0 Yes [id number] 150mg Take 1 U nivers XL 4-12 tablet by ity of (WELLBUTRIN 00:00: mouth [place] XL) 150 mg 00 daily. Medical 24 hr Branch tablet busPIRone 2021-0 Yes [id number] 30mg Take 1 Un matt 30 mg 4-12 tablet by ity of tablet 00:00: mouth 2 [place] 00 (two) Medical times Branch daily. SERTraline 2021-0 Yes [id number] 200mg Take 2 Univers 100 mg 4-12 tablets by ity of tablet 00:00: mouth [place] 00 daily. Medical Branch buPROPion 2021-0 Yes [id number] 150mg Take 1 U nivers XL 4-12 tablet by ity of (WELLBUTRIN 00:00: mouth [place] XL) 150 mg 00 daily. Medical 24 hr Branch tablet busPIRone 2021-0 Yes [id number] 30mg Take 1 Un matt 30 mg 4-12 tablet by ity of tablet 00:00: mouth 2 [place] 00 (two) Medical times Branch daily. SERTraline 2021-0 Yes [id number] 200mg Take 2 Univers 100 mg 4-12 tablets by ity of tablet 00:00: mouth [place] 00 daily. Medical Branch buPROPion 2021-0 Yes [id number] 150mg Take 1 U nivers XL 4-12 tablet by ity of (WELLBUTRIN 00:00: mouth [place] XL) 150 mg 00 daily. Medical 24 hr Branch tablet busPIRone 2021-0 Yes [id number] 30mg Take 1 Un matt 30 mg 4-12 tablet by ity of tablet 00:00: mouth 2 [place] 00 (two) Medical times Branch daily. SERTraline 2021-0 Yes [id number] 200mg Take 2 Univers 100 mg 4-12 tablets by ity of tablet 00:00: mouth [place] 00 daily. Medical Branch buPROPion 2021-0 Yes [id number] 150mg Take 1 U nivers XL 4-12 tablet by ity of (WELLBUTRIN 00:00: mouth [place] XL) 150 mg 00 daily. Medical 24 hr Branch tablet busPIRone 2021-0 Yes [id number] 30mg Take 1 Un matt 30 mg 4-12 tablet by ity of tablet 00:00: mouth 2 [place] 00 (two) Medical times Branch daily. SERTraline 2021-0 Yes [id number] 200mg Take 2 Univers 100 mg 4-12 tablets by ity of tablet 00:00: mouth [place] 00 daily. Medical Branch buPROPion 2021-0 Yes [id number] 150mg Take 1 U nivers XL 4-12 tablet by ity of (WELLBUTRIN 00:00: mouth [place] XL) 150 mg 00 daily. Medical 24 hr Branch tablet busPIRone 2021-0 Yes [id number] 30mg Take 1 Un matt 30 mg 4-12 tablet by ity of tablet 00:00: mouth 2 [place] 00 (two) Medical times Branch daily. SERTraline 2021-0 Yes [id number] 200mg Take 2 Univers 100 mg 4-12 tablets by ity of tablet 00:00: mouth [place] 00 daily. Medical Branch buPROPion 2021-0 Yes [id number] 150mg Take 1 U nivers XL 4-12 tablet by ity of (WELLBUTRIN 00:00: mouth [place] XL) 150 mg 00 daily. Medical 24 hr Branch tablet busPIRone 2021-0 Yes [id number] 30mg Take 1 Un matt 30 mg 4-12 tablet by ity of tablet 00:00: mouth 2 [place] 00 (two) Medical times Branch daily. SERTraline 2021-0 Yes [id number] 200mg Take 2 Univers 100 mg 4-12 tablets by ity of tablet 00:00: mouth [place] 00 daily. Medical Branch buPROPion 2021-0 Yes [id number] 150mg Take 1 U nivers XL 4-12 tablet by ity of (WELLBUTRIN 00:00: mouth [place] XL) 150 mg 00 daily. Medical 24 hr Branch tablet busPIRone 2021-0 Yes [id number] 30mg Take 1 Un matt 30 mg 4-12 tablet by ity of tablet 00:00: mouth 2 [place] 00 (two) Medical times Branch daily. SERTraline 2021-0 Yes [id number] 200mg Take 2 Univers 100 mg 4-12 tablets by ity of tablet 00:00: mouth [place] 00 daily. Medical Branch buPROPion 2021-0 Yes [id number] 150mg Take 1 U nivers XL 4-12 tablet by ity of (WELLBUTRIN 00:00: mouth [place] XL) 150 mg 00 daily. Medical 24 hr Branch tablet busPIRone 2021-0 Yes [id number] 30mg Take 1 Un matt 30 mg 4-12 tablet by ity of tablet 00:00: mouth 2 [place] 00 (two) Medical times Branch daily. SERTraline 2021-0 Yes [id number] 200mg Take 2 Univers 100 mg 4-12 tablets by ity of tablet 00:00: mouth [place] 00 daily. Medical Branch buPROPion 2021-0 Yes [id number] 150mg Take 1 U nivers XL 4-12 tablet by ity of (WELLBUTRIN 00:00: mouth [place] XL) 150 mg 00 daily. Medical 24 hr Branch tablet busPIRone 2021-0 Yes [id number] 30mg Take 1 Un matt 30 mg 4-12 tablet by ity of tablet 00:00: mouth 2 [place] 00 (two) Medical times Branch daily. SERTraline 2021-0 Yes [id number] 200mg Take 2 Univers 100 mg 4-12 tablets by ity of tablet 00:00: mouth [place] 00 daily. Medical Branch buPROPion 2021-0 Yes [id number] 150mg Take 1 U nivers XL 4-12 tablet by ity of (WELLBUTRIN 00:00: mouth [place] XL) 150 mg 00 daily. Medical 24 hr Branch tablet busPIRone 2021-0 Yes [id number] 30mg Take 1 Un matt 30 mg 4-12 tablet by ity of tablet 00:00: mouth 2 [place] 00 (two) Medical times Branch daily. SERTraline 2021-0 Yes [id number] 200mg Take 2 Univers 100 mg 4-12 tablets by ity of tablet 00:00: mouth [place] 00 daily. Medical Branch buPROPion 2021-0 Yes [id number] 150mg Take 1 U nivers XL 4-12 tablet by ity of (WELLBUTRIN 00:00: mouth [place] XL) 150 mg 00 daily. Medical 24 hr Branch tablet busPIRone 2021-0 Yes [id number] 30mg Take 1 Un matt 30 mg 4-12 tablet by ity of tablet 00:00: mouth 2 00 (two) Medical times Branch daily. SERTraline 2021-0 Yes [id number] 200mg Take 2 Univers 100 mg 4-12 tablets by ity of tablet 00:00: mouth [place] 00 daily. Medical Branch buPROPion 2021-0 Yes [id number] 150mg Take 1 U nivers XL 4-12 tablet by ity of (WELLBUTRIN 00:00: mouth [place] XL) 150 mg 00 daily. Medical 24 hr Branch tablet busPIRone 2021-0 Yes [id number] 30mg Take 1 Un matt 30 mg 4-12 tablet by ity of tablet 00:00: mouth 2 (two) Medical times Branch daily. SERTraline 2021-0 Yes [id number] 200mg Take 2 Univers 100 mg 4-12 tablets by ity of tablet 00:00: mouth [place] 00 daily. Medical Branch buPROPion 2021-0 Yes [id number] 150mg Take 1 U nivers XL 4-12 tablet by ity of (WELLBUTRIN 00:00: mouth [place] XL) 150 mg 00 daily. Medical 24 hr Branch tablet busPIRone 2021-0 Yes [id number] 30mg Take 1 Un matt 30 mg 4-12 tablet by ity of tablet 00:00: mouth 2 (two) Medical times Branch daily. SERTraline 2021-0 Yes [id number] 200mg Take 2 Univers 100 mg 4-12 tablets by ity of tablet 00:00: mouth [place] 00 daily. Medical Branch buPROPion 2021-0 Yes [id number] 150mg Take 1 U nivers XL 4-12 tablet by ity of (WELLBUTRIN 00:00: mouth [place] XL) 150 mg 00 daily. Medical 24 hr Branch tablet busPIRone 2021-0 Yes [id number] 30mg Take 1 Un matt 30 mg 4-12 tablet by ity of tablet 00:00: mouth 2 (two) Medical times Branch daily. SERTraline 2021-0 Yes [id number] 200mg Take 2 Univers 100 mg 4-12 tablets by ity of tablet 00:00: mouth [place] 00 daily. Medical Branch buPROPion 2021-0 Yes [id number] 150mg Take 1 U nivers XL 4-12 tablet by ity of (WELLBUTRIN 00:00: mouth [place] XL) 150 mg 00 daily. Medical 24 hr Branch tablet busPIRone 2021-0 Yes [id number] 30mg Take 1 Un matt 30 mg 4-12 tablet by ity of tablet 00:00: mouth 2 [place] 00 (two) Medical times Branch daily. SERTraline 2021-0 Yes [id number] 200mg Take 2 Univers 100 mg 4-12 tablets by ity of tablet 00:00: mouth [place] 00 daily. Medical Branch buPROPion 2021-0 Yes [id number] 150mg Take 1 U nivers XL 4-12 tablet by ity of (WELLBUTRIN 00:00: mouth [place] XL) 150 mg 00 daily. Medical 24 hr Branch tablet busPIRone 2021-0 Yes [id number] 30mg Take 1 Un matt 30 mg 4-12 tablet by ity of tablet 00:00: mouth 2 [place] 00 (two) Medical times Branch daily. SERTraline 2021-0 Yes [id number] 200mg Take 2 Univers 100 mg 4-12 tablets by ity of tablet 00:00: mouth [place] 00 daily. Medical Branch buPROPion 2021-0 Yes [id number] 150mg Take 1 U nivers XL 4-12 tablet by ity of (WELLBUTRIN 00:00: mouth [place] XL) 150 mg 00 daily. Medical 24 hr Branch tablet busPIRone 2021-0 Yes [id number] 30mg Take 1 Un matt 30 mg 4-12 tablet by ity of tablet 00:00: mouth 2 [place] 00 (two) Medical times Branch daily. SERTraline 2021-0 Yes [id number] 200mg Take 2 Univers 100 mg 4-12 tablets by ity of tablet 00:00: mouth [place] 00 daily. Medical Branch buPROPion 2021-0 Yes [id number] 150mg Take 1 U nivers XL 4-12 tablet by ity of (WELLBUTRIN 00:00: mouth [place] XL) 150 mg 00 daily. Medical 24 hr Branch tablet busPIRone 2021-0 Yes [id number] 30mg Take 1 Un matt 30 mg 4-12 tablet by ity of tablet 00:00: mouth 2 [place] 00 (two) Medical times Branch daily. SERTraline 2021-0 Yes [id number] 200mg Take 2 Univers 100 mg 4-12 tablets by ity of tablet 00:00: mouth [place] 00 daily. Medical Branch raltegravir 2021-0 Yes [id number] 400mg Take 1 Univers (ISENTRESS) 3-28 tablet by ity of 400 mg 00:00: mouth 2 [place] tablet 00 (two) Medical times Branch daily. raltegravir 2021-0 Yes [id number] 400mg Take 1 Univers (ISENTRESS) 3-28 tablet by ity of 400 mg 00:00: mouth 2 [place] tablet 00 (two) Medical times Branch daily. raltegravir 2021-0 Yes [id number] 400mg Take 1 Univers (ISENTRESS) 3-28 tablet by ity of 400 mg 00:00: mouth 2 [place] tablet 00 (two) Medical times Branch daily. raltegravir 2021-0 Yes [id number] 400mg Take 1 Univers (ISENTRESS) 3-28 tablet by ity of 400 mg 00:00: mouth 2 [place] tablet 00 (two) Medical times Branch daily. raltegravir 2021-0 Yes [id number] 400mg Take 1 Univers (ISENTRESS) 3-28 tablet by ity of 400 mg 00:00: mouth 2 [place] tablet 00 (two) Medical times Branch daily. raltegravir 2021-0 Yes [id number] 400mg Take 1 Univers (ISENTRESS) 3-28 tablet by ity of 400 mg 00:00: mouth 2 [place] tablet 00 (two) Medical times Branch daily. raltegravir 2021-0 Yes [id number] 400mg Take 1 Univers (ISENTRESS) 3-28 tablet by ity of 400 mg 00:00: mouth 2 [place] tablet 00 (two) Medical times Branch daily. raltegravir 2021-0 Yes [id number] 400mg Take 1 [facility] (ISENTRESS) 3-28 tablet by ity of 400 mg 00:00: mouth 2 [place] tablet 00 (two) Medical times Branch daily. raltegravir 2021-0 Yes [id number] 400mg Take 1 [facility] (ISENTRESS) 3-28 tablet by ity of 400 mg 00:00: mouth 2 [place] tablet 00 (two) Medical times Branch daily. raltegravir 2022-0 Yes [id number] 400mg Take 1 [facility] (ISENTRESS) 3-28 tablet by ity of 400 mg 00:00: mouth 2 [place] tablet 00 (two) Medical times Branch daily. raltegravir 2022-0 Yes [id number] 400mg Take 1 [facility] (ISENTRESS) 3-28 tablet by ity of 400 mg 00:00: mouth 2 [place] tablet 00 (two) Medical times Branch daily. raltegravir 2022-0 Yes [id number] 400mg Take 1 [facility] (ISENTRESS) 3-28 tablet by ity of 400 mg 00:00: mouth 2 [place] tablet 00 (two) Medical times Branch daily. raltegravir 2022-0 Yes [id number] 400mg Take 1 [facility] (ISENTRESS) 3-28 tablet by ity of 400 mg 00:00: mouth 2 [place] tablet 00 (two) Medical times Branch daily. raltegravir 2-0 Yes [id number] 400mg Take 1 [facility] (ISENTRESS) 3-28 tablet by ity of 400 mg 00:00: mouth 2 [place] tablet 00 (two) Medical times Branch daily. raltegravir 2022-0 Yes [id number] 400mg Take 1 [facility] (ISENTRESS) 3-28 tablet by ity of 400 mg 00:00: mouth 2 [place] tablet 00 (two) Medical times Branch daily. raltegravir 2022-0 Yes [id number] 400mg Take 1 [facility] (ISENTRESS) 3-28 tablet by ity of 400 mg 00:00: mouth 2 [place] tablet 00 (two) Medical times Branch daily. raltegravir 2022-0 Yes [id number] 400mg Take 1 [facility] (ISENTRESS) 3-28 tablet by ity of 400 mg 00:00: mouth 2 [place] tablet 00 (two) Medical times Branch daily. raltegravir 2022-0 Yes [id number] 400mg Take 1 [facility] (ISENTRESS) 3-28 tablet by ity of 400 mg 00:00: mouth 2 [place] tablet 00 (two) Medical times Branch daily. raltegravir 2022-0 Yes [id number] 400mg Take 1 [facility] (ISENTRESS) 3-28 tablet by ity of 400 mg 00:00: mouth 2 [place] tablet 00 (two) Medical times Branch daily. raltegravir Yes [id number] 400mg Take 1 [facility] (ISENTRESS) 3-28 tablet by ity of 400 mg 00:00: mouth 2 [place] tablet 00 (two) Medical times Branch daily. raltegravir 2022- No [id number] 400mg Take 1 [facility] (ISENTRESS) 3-28 05-08 tablet by it y of 400 mg 00:00: 00:00 mouth 2 [place] tablet 00 :00 (two) Medical times Branch daily. LORazepam 1 2021- No [id number] 1mg Take 1 [facility] mg tablet 3-10 [...] times a tablet day. emtricitabi 2021- No [id number] Take one [facility] ne-tenofovi 1-20 09-12 po daily ity of r alafen 00:00: 00:00 [place] (DESCOVY) 00 :00 Medical tablet Branch metoprolol Yes [id number] Take 1 [facility] tartrate 7-26 tablet [facility] (Lopressor) 00:00: (100 mg 100 MG 00 total) by tablet mouth 2 (two) times a day AND 0.5 tablets (50 mg total) every night. metoprolol Yes [id number] Take 1 [facility] tartrate 7-26 [facility] [...] (affected area in groin) hydrALAZINE Yes 50mg Q.[id number] Take 50 mg [facility] (APRESOLINE 7-19 [id number] [address] mouth 3 [facility] ) 50 MG [...] (affected area in groin) hydrALAZINE Yes 50mg Q.[id number] Take 50 mg [facility] (APRESOLINE 7-19 [id number] [address] mouth 3 st ) 50 MG [...] area in groin) hydrALAZINE 2021-0 Yes 50mg Q.84778124 Take 50 mg [facility] (APRESOLINE 7-19 [id number] mouth 3 [address] ) 50 MG [...] (affected area in groin) hydrALAZINE Yes 50mg Q.[id number] Take 50 mg [facility] (APRESOLINE 7-19 [id number] [address] mouth 3 st ) 50 MG [...] (affected area in groin) hydrALAZINE Yes 50mg Q.[id number] Take 50 mg [facility] (APRESOLINE 7-19 [id number] mouth 3 [address] ) 50 MG [...] area in groin) hydrALAZINE 0 Yes 50mg Q.35464537 Take 50 mg [facility] (APRESOLINE 7-19 [id number] [address] mouth 3 st ) 50 MG [...] (affected area in groin) hydrALAZINE Yes 50mg Q.[id number] Take 50 mg [facility] (APRESOLINE 7-19 [id number] by mouth 3 [address] ) 50 MG [...] (affected area in groin) hydrALAZINE Yes 50mg Q.[id number] Take 50 mg [facility] (APRESOLINE 7-19 [id number] mouth 3 st ) 50 MG [...] area in groin) hydrALAZINE 0 Yes 50mg Q.85343507 Take 50 mg [facility] (APRESOLINE 7-19 [id number] mouth 3 st ) 50 MG [...] area in groin) hydrALAZINE 0 Yes 50mg Q.[id number] Take 50 mg [facility] (APRESOLINE 7-19 [id number] mouth 3 [address] ) 50 MG [...] (affected area in groin) hydrALAZINE Yes 50mg Q.[id number] Take 50 mg [facility] (APRESOLINE - [id number] by mouth 3 st ) 50 MG [...] area in groin) hydrALAZINE 0 Yes 50mg Q.[id number] Take 50 mg [facility] (APRESOLINE -19 [id number] by mouth 3 [facility] ) 50 MG [...] area in groin) hydrALAZINE 2020-0 Yes 50mg Q.14845496 Take 50 mg [facility] (APRESOLINE 7-19 [id number] [address] mouth 3 [facility] ) 50 MG [...] (affected area in groin) hydrALAZINE Yes 50mg Q.27418850 Take 50 mg [facility] (APRESOLINE -19 [id number] by mouth 3 [address] ) 50 MG [...] area in groin) hydrALAZINE 0 Yes 50mg Q.73298309 Take 50 mg [facility] (APRESOLINE 7-19 [id number] [address] mouth 3 [address] ) 50 MG [...] area in groin) hydrALAZINE 2020-0 Yes 50mg Q.84151375 Take 50 mg [facility] (APRESOLINE 7-19 [id number] mouth 3 [address] ) 50 MG [...] area in groin) hydrALAZINE 0 Yes 50mg Q.98196142 Take 50 mg [facility] (APRESOLINE 7-19 [id number] [address] mouth 3 [address] ) 50 MG [...] (affected area in groin) hydrALAZINE Yes 50mg Q.31342810 Take 50 mg [facility] (APRESOLINE 7-19 [id number] by mouth 3 st ) 50 MG [...] area in groin) hydrALAZINE 2020-0 Yes 50mg Q.84273855 Take 50 mg [facility] (APRESOLINE -19 [id number] [address] mouth 3 [address] ) 50 MG [...] area in groin) hydrALAZINE 0 Yes 50mg Q.65830745 Take 50 mg [facility] (APRESOLINE 7-[id number] mouth 3 [address] ) 50 MG [...] (affected area in groin) hydrALAZINE Yes 50mg Q.38775342 Take 50 mg [facility] (APRESOLINE 7-19 [id number] mouth 3 [address] ) 50 MG [...] area in groin) hydrALAZINE 0 Yes 50mg Q.84848161 Take 50 mg [facility] (APRESOLINE -19 [id number] [address] mouth 3 [address] ) 50 MG [...] area in groin) hydrALAZINE 0 Yes 50mg Q.26899615 Take 50 mg [facility] (APRESOLINE 7-19 [id number] mouth 3 [address] ) 50 MG [...] (affected area in groin) hydrALAZINE Yes 50mg Q.21589851 Take 50 mg [facility] (APRESOLINE 7-19 [id number] [address] mouth 3 [address] ) 50 MG [...] area in groin) hydrALAZINE 0 Yes 50mg Q.13240122 Take 50 mg [facility] (APRESOLINE 7-19 [id number] by mouth 3 st ) 50 MG [...] area in groin) hydrALAZINE 2020-0 Yes 50mg Q.90792605 Take 50 mg [facility] (APRESOLINE 7-[id number] mouth 3 [address] ) 50 MG [...] area in groin) hydrALAZINE 0 Yes 50mg Q.91394770 Take 50 mg [facility] (APRESOLINE 7-19 [id number] [address] mouth 3 [address] ) 50 MG [...] (affected area in groin) hydrALAZINE Yes 50mg Q.93490037 Take 50 mg [facility] (APRESOLINE - [id number] by mouth 3 st ) 50 MG [...] area in groin) hydrALAZINE 0 Yes 50mg Q.[id number] Take 50 mg [facility] (APRESOLINE 7-19 [id number] [address] mouth 3 st ) 50 MG [...] area in groin) hydrALAZINE 2020-0 Yes 50mg Q.23380116 Take 50 mg [facility] (APRESOLINE 7-19 [id number] mouth 3 [address] ) 50 MG [...] (affected area in groin) hydrALAZINE Yes 50mg Q.01666610 Take 50 mg [facility] (APRESOLINE 7-19 [id number] [address] mouth 3 [address] ) 50 MG [...] (affected area in groin) hydrALAZINE Yes 50mg Q.78449174 Take 50 mg [facility] (APRESOLINE 7-19 [id number] by mouth 3 [address] ) 50 MG [...] area in groin) hydrALAZINE 0 Yes 50mg Q.41293703 Take 50 mg [facility] (APRESOLINE 7-19 [id number] mouth 3 [address] ) 50 MG [...] (affected area in groin) hydrALAZINE Yes 50mg Q.91769398 Take 50 mg [facility] (APRESOLINE 7-19 [id number] mouth 3 [address] ) 50 MG [...] (affected area in groin) hydrALAZINE Yes 50mg Q.28262602 Take 50 mg [facility] (APRESOLINE 7-19 [id number] mouth 3 [address] ) 50 MG [...] area in groin) hydrALAZINE 0 Yes 50mg Q.72447873 Take 50 mg [facility] (APRESOLINE 7-19 [id number] mouth 3 [address] ) 50 MG [...] (affected area in groin) hydrALAZINE Yes 50mg Q.54884849 Take 50 mg [facility] (APRESOLINE 7-19 [id number] mouth 3 [address] ) 50 MG [...] (affected area in groin) hydrALAZINE Yes 50mg Q.34027848 Take 50 mg [facility] (APRESOLINE 7-[id number] mouth 3 [address] ) 50 MG [...] area in groin) hydrALAZINE 0 Yes 50mg Q.[id number] Take 50 mg [facility] (APRESOLINE 7-[id number] mouth 3 [address] ) 50 MG [...] area in groin) hydrALAZINE 0 Yes 50mg Q.92709093 Take 50 mg [facility] (APRESOLINE 7-19 [id number] by mouth 3 st ) 50 MG [...] (affected area in groin) hydrALAZINE Yes 50mg Q.77197741 Take 50 mg [facility] (APRESOLINE 7-19 [id number] mouth 3 [address] ) 50 MG [...] (affected area in groin) hydrALAZINE Yes 50mg Q.46084173 Take 50 mg [facility] (APRESOLINE 7-19 [id number] [address] mouth 3 [address] ) 50 MG [...] area in groin) hydrALAZINE 2021-0 Yes 50mg Q.40162900 Take 50 mg [facility] (APRESOLINE 7-[id number] mouth 3 [address] ) 50 MG [...] (affected area in groin) hydrALAZINE Yes 50mg Q.68636755 Take 50 mg [facility] (APRESOLINE 7-19 [id number] by mouth 3 [address] ) 50 MG [...] (affected area in groin) hydrALAZINE Yes 50mg Q.38780378 Take 50 mg [facility] (APRESOLINE 7-[id number] mouth 3 [address] ) 50 MG [...] area in groin) hydrALAZINE 0 Yes 50mg Q.69721244 Take 50 mg [facility] (APRESOLINE 7-[id number] mouth 3 [address] ) 50 MG [...] (affected area in groin) hydrALAZINE Yes 50mg Q.52814661 Take 50 mg [facility] (APRESOLINE 7-[id number] mouth 3 [address] ) 50 MG [...] (affected area in groin) hydrALAZINE Yes 50mg Q.13654917 Take 50 mg [facility] (APRESOLINE 7-[id number] mouth 3 [address] ) 50 MG [...] area in groin) hydrALAZINE 0 Yes 50mg Q.65977603 Take 50 mg [facility] (APRESOLINE 7-19 [id number] mouth 3 [address] ) 50 MG [...] area in groin) hydrALAZINE 0 Yes 50mg Q.68990951 Take 50 mg [facility] (APRESOLINE 7-[id number] mouth 3 [address] ) 50 MG [...] (affected area in groin) hydrALAZINE Yes 50mg Q.03379435 Take 50 mg [facility] (APRESOLINE 7-[id number] mouth 3 [address] ) 50 MG [...] area in groin) hydrALAZINE 0 Yes 50mg Q.15838407 Take 50 mg [facility] (APRESOLINE 7-[address] mouth 3 [address] ) 50 MG [...] (affected area in groin) hydrALAZINE Yes 50mg Q.79689187 Take 50 mg [facility] (APRESOLINE 7-19 [id number] mouth 3 [address] ) 50 MG [...] (affected area in groin) hydrALAZINE Yes 50mg Q.[id number] Take 50 mg [facility] (APRESOLINE 7-[id number] mouth 3 [address] ) 50 MG [...] area in groin) hydrALAZINE 0 Yes 50mg Q.21115928 Take 50 mg [facility] (APRESOLINE 7-[id number] mouth 3 [address] ) 50 MG [...] area in groin) hydrALAZINE 0 Yes 50mg Q.[id number] Take 50 mg [facility] (APRESOLINE 7-19 [id number] mouth 3 [address] ) 50 MG [...] (affected area in groin) hydrALAZINE Yes 50mg Q.[id number] Take 50 mg [facility] (APRESOLINE 7-[id number] mouth [address] ) 50 MG [...] (affected area in groin) hydrALAZINE Yes 50mg Q.99614187 Take 50 mg [facility] (APRESOLINE 7-[id number] mouth 3 [address] ) 50 MG [...] area in groin) hydrALAZINE 0 Yes 50mg Q.[id number] Take 50 mg [facility] (APRESOLINE 7-[id number] mouth 3 [address] ) 50 MG [...] (affected area in groin) hydrALAZINE Yes 50mg Q.[id number] Take 50 mg [facility] (APRESOLINE 7-[id number] mouth [address] ) 50 MG [...] (affected area in groin) hydrALAZINE Yes 50mg Q.75421786 Take 50 mg [facility] (APRESOLINE 7-[id number] mouth 3 [address] ) 50 MG [...] area in groin) hydrALAZINE 0 Yes 50mg Q.[id number] Take 50 mg [facility] (APRESOLINE 7-[id number] mouth [address] ) 50 MG [...] area in groin) hydrALAZINE 0 Yes 50mg Q.[id number] Take 50 mg [facility] (APRESOLINE 7-[id number] mouth [address] ) 50 MG [...] [facility] tablet 25 l nystatin-tr 2021-0 Yes [id number] Apply to [facility] iamcinolone 7-06 area(s) 3 ity of cream 00:00: (three) [place] 00 times Medical daily. Branch nystatin-tr 2021-0 Yes [id number] Apply to [facility] iamcinolone 7-06 area(s) 3 ity of cream 00:00: (three) [place] 00 times Medical daily. Branch nystatin-tr 2021-0 Yes [id number] Apply to [facility] iamcinolone 7-06 area(s) 3 ity of cream 00:00: (three) [place] 00 times Medical daily. Branch nystatin-tr 2021-0 Yes [id number] Apply to [facility] iamcinolone 7-06 area(s) 3 ity of cream 00:00: (three) [place] 00 times Medical daily. Branch nystatin-tr 2021-0 Yes [id number] Apply to [facility] iamcinolone 7-06 area(s) 3 ity of cream 00:00: (three) [place] 00 times Medical daily. Branch nystatin-tr 2021-0 Yes [id number] Apply to [facility] iamcinolone 7-06 area(s) 3 ity of cream 00:00: (three) [place] 00 times Medical daily. Branch nystatin-tr 2021-0 Yes [id number] Apply to [facility] iamcinolone 7-06 area(s) 3 ity of cream 00:00: (three) [place] 00 times Medical daily. Branch nystatin-tr 2021-0 Yes [id number] Apply to [facility] iamcinolone 7-06 area(s) 3 ity of cream 00:00: (three) [place] 00 times Medical daily. Branch nystatin-tr 2021-0 Yes [id number] Apply to [facility] iamcinolone 7-06 area(s) 3 ity of cream 00:00: (three) [place] 00 times Medical daily. Branch nystatin-tr 2021-0 Yes [id number] Apply to [facility] iamcinolone 7-06 area(s) 3 ity of cream 00:00: (three) [place] 00 times Medical daily. Branch nystatin-tr 2021-0 Yes [id number] Apply to [facility] iamcinolone 7-06 area(s) 3 ity of cream 00:00: (three) [place] 00 times Medical daily. Branch nystatin-tr 2021-0 Yes [id number] Apply to [facility] iamcinolone 7-06 area(s) 3 ity of cream 00:00: (three) [place] 00 times Medical daily. Branch nystatin-tr 2021-0 Yes [id number] Apply to [facility] iamcinolone 7-06 area(s) 3 ity of cream 00:00: (three) [place] 00 times Medical daily. Branch nystatin-tr 2021-0 Yes [id number] Apply to [facility] iamcinolone 7-06 area(s) 3 ity of cream 00:00: (three) [place] 00 times Medical daily. Branch nystatin-tr 2021-0 Yes [id number] Apply to [facility] iamcinolone 7-06 area(s) 3 ity of cream 00:00: (three) [place] 00 times Medical daily. Branch nystatin-tr 2021-0 Yes [id number] Apply to [facility] iamcinolone 7-06 area(s) 3 ity of cream 00:00: (three) [place] 00 times Medical daily. Branch nystatin-tr 2021-0 Yes [id number] Apply to [facility] iamcinolone 7-06 area(s) 3 ity of cream 00:00: (three) [place] 00 times Medical daily. Branch nystatin-tr 2021-0 Yes [id number] Apply to [facility] iamcinolone 7-06 area(s) 3 ity of cream 00:00: (three) [place] 00 times Medical daily. Branch nystatin-tr 2021-0 Yes [id number] Apply to [facility] iamcinolone 7-06 area(s) 3 ity of cream 00:00: (three) [place] 00 times Medical daily. Branch nystatin-tr 2021-0 Yes [id number] Apply to [facility] iamcinolone 7-06 area(s) 3 ity of cream 00:00: (three) [place] 00 times Medical daily. Branch nystatin-tr 2021-0 Yes [id number] Apply to [facility] iamcinolone 7-06 area(s) 3 ity of cream 00:00: (three) [place] 00 times Medical daily. Branch nystatin-tr 2021-0 Yes [id number] Apply to [facility] 11-25 area(s) 3 ity of cream 00:00: (three) [place] 00 times Medical daily. Branch budesonide- 2020-1- No 1{puff} QD Inhale 1 [facility] formoteroL 6 06-[address] (SYMBICORT) 14:37: 00:00 morning. H ospita 160-4.5 02 :00 l mcg/actuati on inhaler hydrALAZINE Yes [id number] 50mg Q.72581835 Take 1 [facility] (Apresoline 6-11 [id number] tablet (50 Health ) 50 MG 00:00: 3D mg total) tablet 00 by mouth 3 (three) times a day. hydrALAZINE Yes [id number] 50mg Q.[id number] Take 1 [facility] (Apresoline 6-11 [id number] tablet (50 Health ) 50 MG 00:00: [...] 00:00: ointment 00 nystatin 0 2020- No [id number] Q.25D Take 5 mL [facility] (MYCOSTATIN 10-06- [...] e 4-10 Tablet l 14:00: should not [place] 00 be chewed or crushed. (Same as: Protonix) Amiodarone No Notes: Memor ia 4-10 (Same as: l 14:00: Cordarone) [place] Amlodipine No Notes: [facility] ia 4-10 (Same as: l 14:00: Norvasc) [place] emtricitabi No Notes: Caesar lisa ne 200 MG / 4-10 (Same as: l tenofovir 14:00: Descovy) Herm ariel alafenamide 00 Non-formul 25 MG Oral nancy Tablet [Descovy] Sertraline No Notes: Memor ia 4-10 (Same as: l 14:00: Zoloft) [place] Sertraline No Notes: [facility] ia 4-10 (Same as: l 14:00: Zoloft) [place] pantoprazol No Notes: [place] lisa e 4-10 Tablet l 14:00: should not [place] 00 be chewed or crushed. (Same as: [...] e 4-10 Tablet l 14:00: should not [place] 00 be chewed or crushed. (Same as: Protonix) Amiodarone No Notes: Memor ia 4-10 (Same as: l 14:00: Cordarone) [place] Amlodipine No Notes: Mem[facility] ia 4-10 (Same as: l 14:00: Norvasc) [place] emtricitabi No Notes: [place] lisa ne 200 MG / 4-10 (Same as: l tenofovir 14:00: Descovy) Herm ariel alafenamide 00 Non-formul 25 MG Oral nancy Tablet [Descovy] Sertraline No Notes: Memor ia 4-10 (Same as: l 14:00: Zoloft) [place] pantoprazol No Notes: [place] lisa e 4-10 Tablet l 14:00: should not [place] 00 be chewed or crushed. (Same as: Protonix) Amiodarone No Notes: Memor ia 4-10 (Same as: l 14:00: Cordarone) [place] Amlodipine No Notes: Memor ia 4-10 (Same as: l 14:00: Norvasc) [place] emtricitabi No Notes: [place] lisa ne 200 MG / 4-10 (Same as: l tenofovir 14:00: Descovy) Herm ariel alafenamide 00 Non-formul 25 MG Oral nancy Tablet [Descovy] Sertraline No Notes: Memor ia 4-10 (Same as: l 14:00: Zoloft) [place] pantoprazol No Notes: [place] lisa e 4-10 Tablet l 14:00: should not [place] 00 be chewed or crushed. (Same as: Protonix) Amiodarone No Notes: Memor ia 4-10 (Same as: l 14:00: Cordarone) [place] Sucralfate No Notes: May M emoria 4-10 interfere l 02:00: w/enteral [place] 00 feeds - Take 1 hr before [...] Memoria 4-10 Same as: l 02:00: Eliquis [place] Hydralazine No Notes: Caesar lisa Hydrochlori 4-10 (Same as: l de 50 MG 02:00: Apresoline Her mitchell Oral Tablet 00 ) May interfere w/enteral feedings Take With Food Sucralfate No Notes: May M emoria 4-10 interfere l 02:00: w/enteral [place] 00 feeds - Take 1 hr before or 2 hr after antacids, dairy pdt, meals & minerals - On empty stomach. For patients unable to swallow tablet, dissolve in 10mL - 30mL of water or juice and stir before giving. (Same As: Carafate) Saline No Notes: [facility]oria Flush 0.9% 4-10 (Same as: l 02:00: BD [place] Posiflush) Eliquis No Notes: Memoria 4-10 Same [...] Memoria 4-10 Same as: l 02:00: Eliquis [place] 00 Hydralazine No Notes: Caesar lisa Hydrochlori [...] 0.9% 4-10 (Same as: l 02:00: BD [place] Posiflush) Eliquis No Notes: Memoria 4-10 Same as: l 02:00: Eliquis [place] 00 Hydralazine No Notes: Caesar lisa Hydrochlori [...] 0.9% 4-10 (Same as: l 02:00: BD [place] Posiflush) Eliquis No Notes: Memoria 4-10 Same [...] Memoria 4-10 Same as: l 02:00: Eliquis [place] 00 Hydralazine No Notes: Caesar lisa Hydrochlori 4-10 (Same as: l de 50 MG 02:00: Apresoline Her mitchell Oral Tablet 00 ) May interfere w/enteral feedings Take With Food acetaminoph No Notes: Do M emoria en-codeine 4-10 not exceed l #3 00:12: 4gm/day of [place] 00 acetaminop hen. (Same as: Tylenol with Codeine # 3) acetaminoph No Notes: Do M emoria en-codeine 4-10 not exceed l #3 00:12: 4gm/day of [place] acetaminop hen. (Same as: Tylenol with Codeine [...] oria 4-09 tab, l 22:00: Route: PO, [place] Drug form: TAB, BID, Dosing Weight 97.273, [...] tartrate 4-09 tab, l 22:00: Route: PO, [place] Drug form: TAB, BID, Dosing Weight 97.273, [...] oria 4-09 tab, l 22:00: Route: PO, [place] Drug form: TAB, BID, Dosing Weight 97.273, kg, Start date: 08/29/20 17:00:00 CDT, Duration: 30 day, Stop date: 09/28/20 9:00:00 CDT metoprolol 2021-0 No 100 mg, 1 Me moria tartrate 4-09 tab, l 22:00: Route: PO, [place] Drug form: TAB, BID, Dosing Weight 97.273, [...] oria - tab, l 22:00: Route: PO, [place] 00 Drug form: TAB, BID, Dosing Weight [...] oria 4-09 tab, l 22:00: Route: PO, [place] 00 Drug form: TAB, BID, Dosing Weight 97.273, kg, Start date: 08/29/20 17:00:00 CDT, Duration: 30 day, Stop date: 09/28/20 9:00:00 CDT metoprolol No 100 mg, 1 Me moria tartrate 4- tab, l 22:00: Route: PO, [place] 00 Drug form: TAB, BID, Dosing Weight [...] Notes: Memoria 4-09 (Same l 17:07: as:MORPhin [place] 00 e Sulfate) Morphine No Notes: Memoria 4-09 (Same l 17:07: as:MORPhin [place] 00 e Sulfate) Morphine No Notes: Memoria 4-09 (Same l 17:07: as:MORPhin [place] 00 e Sulfate) Morphine 2020-0 No Notes: Memoria 4- (Same l 17:07: as:MORPhin [place] 00 e Sulfate) Morphine 2020-0 No Notes: Memoria 4- (Same l 17:07: as:MORPhin [place] 00 e Sulfate) Morphine 2020-0 No Notes: Memoria 4- (Same l 17:07: as:MORPhin [place] 00 e Sulfate) buPROPion 2020-0 No 150 [...] 30 tab, 0 coated Refill(s), tablet Pharmacy: [facility], 162.56, cm, 08/29/20 5:30:00 CDT, Height, 97.273, kg, 08/29/20 5:30:00 CDT, Weight pantoprazol 2020-0 Yes 40 mg = 1 M emoria e 40 mg 4-09 tab, PO, l oral 15:27: Daily, # Marty enteric 00 30 tab, 0 coated Refill(s), tablet Pharmacy: [facility] 149, 162.56, cm, 08/29/20 5:30:00 CDT, Height, 97.273, kg, 08/29/20 5:30:00 CDT, Weight pantoprazol 2020-0 Yes 40 mg = 1 M emoria e 40 mg 4-09 tab, PO, l oral 15:27: Daily, # [place] enteric 00 30 tab, 0 coated Refill(s), tablet Pharmacy: [facility] 149, 162.56, cm, 08/29/20 5:30:00 CDT, Height, 97.273, kg, 08/29/20 5:30:00 CDT, Weight pantoprazol 2020-0 Yes 40 mg = 1 M emoria e 40 mg 4-09 tab, PO, l oral 15:27: Daily, # [place] enteric 00 30 tab, 0 coated Refill(s), tablet Pharmacy: [facility], 162.56, cm, 08/29/20 5:30:00 CDT, Height, 97.273, kg, 08/29/20 5:30:00 CDT, Weight pantoprazol 1-0 Yes 40 mg = 1 M emoria e 40 mg 4-09 tab, PO, l oral 15:27: Daily, # [place] enteric 00 30 tab, 0 coated Refill(s), tablet Pharmacy: [facility] 149, 162.56, cm, 08/29/20 5:30:00 CDT, Height, 97.273, kg, 08/29/20 5:30:00 CDT, Weight pantoprazol 1-0 Yes 40 mg = 1 M emoria e 40 mg 4-09 tab, PO, l oral 15:27: Daily, # [place] enteric 00 30 tab, 0 coated Refill(s), tablet Pharmacy: [facility] 149, 162.56, cm, 08/29/20 5:30:00 CDT, Height, 97.273, kg, 08/29/20 5:30:00 CDT, Weight pantoprazol 1-0 Yes 40 mg = 1 M emoria e 40 mg 4-09 tab, PO, l oral 15:27: Daily, # [place] enteric 00 30 tab, 0 coated Refill(s), tablet Pharmacy: [facility] 149, 162.56, cm, 08/29/20 5:30:00 [...] Skylar nn 00 tab, 0 Refill(s), Pharmacy: [facility] 149, 162.56, cm, 08/29/20 5:30:00 [...] 00 tab, 0 Refill(s), Pharmacy: [place] [id number], 162.56, cm, 08/29/20 5:30:00 CDT, Height, 97.273, [...] 00 tab, 0 Refill(s), Pharmacy: [place] [address], 162.56, cm, 08/29/20 5:30:00 CDT, Height, 97.273, kg, 08/29/20 5:30:00 CDT, Weight pantoprazol 2020-0 No 40 mg = 1 M emoria e 40 mg 4-09 tab, PO, l oral 15:26: Daily, # [place] enteric 00 30 tab, 0 coated Refill(s) tablet sucralfate 2020-0 Yes 1 gm = 1 Mem oria 1 g oral 4-09 tab, PO, l tablet 15:26: Q12H, # 28 Skylar nn 00 tab, 0 Refill(s), Pharmacy: [facility] 149, 162.56, cm, 08/29/20 5:30:00 CDT, Height, 97.273, kg, 08/29/20 5:30:00 CDT, Weight pantoprazol 2020-0 No 40 mg = 1 M emoria e 40 mg 4-09 tab, PO, l oral 15:26: Daily, # [place] enteric 00 30 tab, 0 coated Refill(s) tablet sucralfate Yes 1 gm = 1 Mem oria 1 g oral 4-09 tab, PO, l tablet 15:26: Q12H, # 28 Skylar nn 00 tab, 0 Refill(s), Pharmacy: [facility] 149, 162.56, cm, 08/29/20 5:30:00 [...] Skylar nn 00 tab, 0 Refill(s), Pharmacy: [facility] 149, 162.56, cm, 08/29/20 5:30:00 CDT, Height, 97.273, kg, 08/29/20 5:30:00 CDT, Weight pantoprazol No 40 mg = 1 M emoria e 40 mg 4-09 tab, PO, l oral 15:26: Daily, # [place] enteric 00 30 tab, 0 coated Refill(s) tablet sucralfate Yes 1 gm = 1 Mem oria 1 g oral 4-09 tab, PO, l tablet 15:26: Q12H, # 28 Skylar nn 00 tab, 0 Refill(s), Pharmacy: [facility] 149, 162.56, cm, 08/29/20 5:30:00 CDT, Height, 97.273, kg, 08/29/20 5:30:00 CDT, Weight Saline No Notes: Memoria Flush 0.9% 08-29 (Same as: l 15:25: BD [place] Posiflush) Lorazepam No Notes: Memori a - (Same as: l 15:25: Ativan) Marty 00 Saline No Notes: Memoria Flush 0.9% 4-09 (Same as: l 15:25: BD [place] 00 Posiflush) Lorazepam No Notes: Memori a 4-09 (Same as: l 15:25: Ativan) Marty 00 Saline No Notes: Memoria Flush 0.9% 4-09 (Same as: l 15:25: BD [place] 00 Posiflush) Saline No Notes: Memoria Flush [...] 0.9% 4-09 (Same as: l 15:25: BD [place] 00 Posiflush) Lorazepam No Notes: Memori a 4-09 (Same as: l 15:25: Ativan) Saline No Notes: Memoria Flush 0.9% 4-09 (Same as: l 15:25: BD [place] Posiflush) Lorazepam No Notes: Memori a 4-09 (Same as: l 15:25: Ativan) Isuprel HCl No Route: IV, Memoria (ANES) 0.2 4- Drug form: l mg + 15:00: INJ, [place] Dosing Weight 97.3, kg, Start date: 08/29/20 10:00:00 CDT, Stop date: 08/29/20 11:00:00 CDT Isuprel HCl No Route: IV, Memoria (ANES) 0.2 4-09 Drug form: l mg + 15:00: INJ, Marty Dosing Weight 97.3, kg, Start date: 08/29/20 10:00:00 CDT, Stop date: 08/29/20 11:00:00 CDT Isuprel HCl 2020-0 No Route: IV, Memoria (ANES) 0.2 08-29 Drug form: l mg + 15:00: INJ, [place] Dosing Weight 97.3, kg, Start date: 08/29/20 [...] Drug form: l 14:49: INJ, ONCE, Marty Stop date: 08/29/20 9:49:00 CDT heparin 2020-0 [...] Labetalol 2020-0 No 10 mg, Memori a 4-09 Route: l 14:01: IVP, [place] 00 Q5Min, Dosing Weight 97.273, kg, PRN Elevated BP, Start date: 08/29/20 9:01:00 CDT, Duration: 5 doses or times, Stop date: Limited # of times Acetaminoph 1-0 No 1,000 mg, M emoria en 08-29 Route: PO, l 14:01: Drug form: [place] 00 TAB, ONCE, Dosing Weight 97.273, kg, [...] lisa 08-29 Route: l 14:01: IVP, PRN, [place] 00 Dosing Weight 97.273, kg, PRN Benzodiaze pine Reversal, Initial dose, Start date: 08/29/20 9:01:00 CDT, Duration: 30 day, Stop date: 09/28/20 9:00:00 CDT Naloxone 1-0 No 0.4 mg, Memori a 08-29 Route: l 14:01: IVP, [place] 00 Q2MIN, Dosing Weight 97.273, kg, PRN Narcotic Reversal, Start date: 08/29/20 9:01:00 CDT, Duration: 8 doses or times, Stop date: Limited # of times Ondansetron 1-0 No 4 mg, Memor ia 08-29 Route: l 14:01: IVP, ONCE, [place] 00 Dosing Weight 97.273, kg, PRN Nausea [...] Memori a 08-29 Route: l 14:01: IVP, [place] 00 Q5Min, Dosing Weight 97.273, kg, PRN Elevated BP, Start date: 08/29/20 9:01:00 CDT, Duration: 5 doses or times, Stop date: Limited # of times Acetaminoph 1-0 No 1,000 mg, M emoria en 08-29 Route: PO, l 14:01: Drug form: [place] 00 TAB, ONCE, Dosing Weight 97.273, kg, [...] oria ne 08-29 Route: l 14:01: IVP, [place] 00 Q5Min, Dosing Weight 97.273, kg, PRN [...] 08-29 Route: PO, l 14:01: Drug form: [place] 00 TAB, ONCE, Dosing Weight 97.273, kg, [...] Memori a 08-29 Route: l 14:01: IVP, [place] 00 Q2MIN, Dosing Weight 97.273, kg, PRN Narcotic Reversal, Start date: 08/29/20 9:01:00 CDT, Duration: 8 doses or times, Stop date: Limited # of times Flumazenil 2021-0 No 0.2 mg, Caesar lisa 08-29 Route: l 14:01: IVP, PRN, [place] 00 Dosing Weight 97.273, kg, PRN Benzodiaze [...] Memori a 08-29 Route: l 14:01: IVP, [place] 00 Q2MIN, Dosing Weight 97.273, kg, PRN [...] Memori a 08-29 Route: l 14:01: IVP, [place] 00 Q5Min, Dosing Weight 97.273, kg, PRN [...] Memori a 08-29 Route: l 14:01: IVP, [place] 00 Q2MIN, Dosing Weight 97.273, kg, PRN [...] lisa 08-29 Route: l 14:01: IVP, PRN, [place] Dosing Weight 97.273, kg, PRN Benzodiaze pine [...] 08-29 Drug form: l 13:42: INJ, ONCE, [place] Stop date: 08/29/20 8:42:00 CDT fentaNYL 2020-0 No Route: IV, Mem oria (ANES) 08-29 Drug form: l 13:42: INJ, ONCE, Marty Stop date: 08/29/20 8:42:00 CDT fentaNYL 2020-0 No Route: IV, Mem oria (ANES) 08-29 Drug form: l 13:42: INJ, ONCE, [place] 00 Stop date: 08/29/20 8:42:00 CDT fentaNYL 2020-0 No Route: IV, Mem oria (ANES) 08-29 Drug form: l 13:42: INJ, ONCE, [place] 00 Stop date: 08/29/20 8:42:00 CDT norepinephr [...] Drug form: l 10 13:15: INJ, Start [place] microgram date: 08/29/20 8:15:00 CDT, Stop date: 08/29/20 9:15:00 CDT norepinephr 2020-0 No Route: IV, Memoria ine (ANES) 08-29 Drug form: l 10 13:15: INJ, Start [place] microgram date: 08/29/20 8:15:00 CDT, Stop date: [...] Drug form: l 10 13:15: INJ, Start [place] microgram date: 08/29/20 8:15:00 CDT, Stop date: 08/29/20 9:15:00 CDT Sodium 2020-0 No Route: IV, Memor ia Chloride 4-09 Total l 0.9% IV 12:30: Volume: Marty (ANES) 1000 00 1,000, mL Start date: 08/29/20 7:30:00 CDT, Stop date: 08/29/20 8:30:00 CDT Sodium 2020-0 No Route: IV, Memor ia Chloride 4-09 Total l 0.9% IV 12:30: Volume: [place] (ANES) 1000 00 1,000, mL Start date: [...] PO, l Hydrochlori 11:42: Q24H, # 30 [place] de 150 MG 00 tab, 0 Extended Refill(s) Release Tablet 24 HR Yes 150 mg = 1 Memori a Bupropion 4-09 tab, PO, l Hydrochlori 11:42: Q24H, # 30 [place] de 150 MG 00 tab, 0 Extended Refill(s) Release Tablet 24 HR Yes 150 mg = 1 Memori a Bupropion 4-09 tab, PO, l Hydrochlori 11:42: Q24H, # 30 [place] de 150 MG 00 tab, 0 Extended Refill(s) Release Tablet 24 HR Yes 150 mg = 1 Memori a Bupropion 4-09 tab, PO, l Hydrochlori 11:42: Q24H, # 30 [place] de 150 MG 00 tab, 0 Extended Refill(s) Release Tablet 24 HR Yes 150 mg = 1 Memori a Bupropion 4-09 tab, PO, l Hydrochlori 11:42: Q24H, # 30 [place] de 150 MG 00 tab, 0 Extended Refill(s) Release Tablet apixaban 2020-0 Yes 5 mg, PO, Me moria MG Oral 4- Q12H, tab, l Tablet 11:41: 0 [place] [Eliquis] 00 Refill(s), For Atrial Fibrilatio n apixaban 0 Yes 5 mg, PO, Me moria MG Oral 4- Q12H, tab, l Tablet 11:41: 0 [place] [Eliquis] 00 Refill(s), For Atrial Fibrilatio n apixaban 5 2020-0 Yes 5 mg, PO, Me moria MG Oral 4 Q12H, tab, l Tablet 11:41: 0 [place] [Eliquis] 00 Refill(s), For Atrial Fibrilatio n [...] tab, PO, l tablet 11:38: Daily, # [place] 00 90 tab, 3 Refill(s) AMIODarone 0 [...] tab, PO, l tablet 11:38: Daily, # [place] 00 90 tab, 3 Refill(s) AMIODarone Yes 200 mg = 1 M emoria 200 mg oral 4-09 tab, PO, l tablet 11:38: Daily, # [place] 00 90 tab, 3 Refill(s) AMIODarone Yes [...] [facility] ([facility] Yes 400mg Q.5D Take 400 Met hodi 400 mg 3-[address] tablet 00:00: mouth 2 [facility] 00 (two) l times a day. Immunizations Ordered Filled Immunization Date Status Comments [facility] e Immunization Name Name SARS-COV-2 COVID-19 [...] SARS-COV-2 COVID-19 2022-03-05 Completed [facility] DIMIRTIS-SUCROSE [facility] Y[facility]+, [...] YRS+, Branch BIVALENT 0.3ML, IM, (PFIZER [facility]) Influenza Virus 2022-03-05 Completed [facility] Vaccine,quad 00:[facility] [place] [facility] Free [facility] 65+ PFIZER COVID-19 2020-07-23 Completed [facility] VACCINATION 00:00:00 [facility] PFIZER COVID-19 2020-07-23 Completed [facility] VACC[facility] 00:00:00 [facility] PFIZER COVID-19 2020-07-23 Completed [facility] VACC[facility] 00:00:00 [facility] PFIZER COVID-19 2020-07-23 Completed [facility] VACCINATION 00:00:00 [facility] PFIZER COVID-19 2020-07-23 Completed [facility] VACCINATION 00:00:00 [facility] PFIZER COVID-19 2020-07-23 Completed [facility] VACC[facility] 00:00:00 [facility] PFIZER COVID-19 2020-07-23 Completed [facility] VACC[facility]ATION 00:00:00 [facility] PFIZER COVID-19 2020-07-23 Completed [facility] VACCIN[facility] 00:00:00 [facility] PFIZER COVID-19 2020-07-23 Completed [facility] VACC[facility]ATION 00:00:00 [facility] PFIZER COVID-19 2020-07-23 Completed [facility] VACC[facility]ATION 00:00:00 [facility] PFIZER COVID-19 2020-07-23 Completed [facility] VACC[facility] 00:00:00 [facility] PFIZER COVID-19 2020-07-23 Completed [facility] VACC[facility] 00:00:00 [facility] PFIZER COVID-19 2020-07-23 Completed [facility] VACC[facility]ATION 00:00:00 [facility] PFIZER COVID-19 2020-07-23 Completed [facility] VACC[facility] 00:00:00 [facility] PFIZER COVID-19 2020-07-23 Completed [facility] VACC[facility]ATION 00:00:00 [facility] PFIZER COVID-19 2020-07-23 Completed [facility] VACCINATION 00:00:00 [facility] PFIZER COVID-19 2020-07-23 Completed [facility] VACC[facility]ATION 00:00:00 [facility] PFIZER COVID-19 2020-07-23 Completed [facility] VACCINATION 00:00:00 [facility] PFIZER COVID-19 2020-07-23 Completed [facility] VACC[facility] 00:00:00 [facility] PFIZER COVID-19 2020-07-23 Completed [facility] VACCINATION 00:00:00 [facility] PFIZER COVID-19 2020-07-23 Completed [facility] VACCINATION 00:00:00 [facility] PFIZER COVID-19 2020-07-23 Completed [facility] VACC[facility]ATION 00:00:00 [facility] PFIZER COVID-19 2020-07-23 Completed [facility] VACCINATION 00:00:00 [facility] PFIZER COVID-19 2020-07-23 Completed [facility] VACC[facility] 00:00:00 [facility] PEG COVID-19 2020-07-23 Completed [facility] VACCINATION 00:00:00 [facility] PEG COVID-19 2020-07-23 Completed [facility] VACC[facility] 00:00:00 [facility] PEG COVID-19 2020-07-23 Completed [facility] VACCINATION 00:00:00 [facility] PFIZER COVID-19 2020-07-23 Completed [facility] VACC[facility]ATION 00:00:00 [facility] PFIZER COVID-19 2020-07-23 Completed [facility] VACCINATION 00:00:00 [facility] PFIZER COVID-19 2020-07-23 Completed [facility] VACC[facility] 00:00:00 [facility] PEG COVID-19 2020-07-23 Completed [facility] VACCINATION 00:00:00 [facility] PFIZER COVID-19 2020-07-23 Completed [facility] VACCINATION 00:00:00 [facility] PFIZER COVID-19 2020-07-23 Completed [facility] VACCINATION 00:00:00 [facility] PFIZER COVID-19 2020-07-23 Completed [facility] VACCINATION 00:00:00 [facility] PFIZER COVID-19 2020-07-23 Completed [facility] VACCINATION 00:00:00 [facility] PFIZER COVID-19 2020-07-23 Completed [facility] VACCINATION 00:00:00 [facility] PFIZER COVID-19 2020-07-23 Completed [facility] VACCINATION 00:00:00 [facility] PFIZER COVID-19 2020-07-23 Completed [facility] VACCINATION 00:00:00 [facility] PFIZER COVID-19 2020-07-23 Completed [facility] VACCINATION 00:00:00 [facility] PFIZER COVID-19 2020-07-23 Completed [facility] VACCINATION 00:00:00 [facility] PFIZER COVID-19 2020-07-23 Completed [facility] VACCINATION 00:00:00 [facility] PFIZER COVID-19 2020-07-23 Completed [facility] VACCINATION 00:00:00 [facility] PFIZER COVID-19 2020-07-23 Completed [facility] VACC[facility] 00:00:00 [facility] PFIZER COVID-19 2020-07-23 Completed [facility] VACCINATION 00:00:00 [facility] PFIZER COVID-19 2020-07-23 Completed [facility] VACCINATION 00:00:00 [facility] PFIZER COVID-19 2020-07-23 Completed [facility] VACCIN[facility] 00:00:00 [facility] PFIZER COVID-19 2020-07-23 Completed [facility] VACCINATION 00:00:00 [facility] PEG COVID-19 2020-07-23 Completed [facility] VACCINATION 00:00:00 [facility] PFIZER COVID-19 2020-07-23 Completed [facility] VACCINATION 00:00:00 [facility] PFIZER COVID-19 2020-07-23 Completed [facility] VACCIN[facility] 00:00:00 [facility] PFIZER COVID-19 2020-07-23 Completed [facility] VACCIN[facility] 00:00:00 [facility] PFIZER COVID-19 2020-07-23 Completed [facility] VACCINATION 00:00:00 [facility] PFIZER COVID-19 2020-07-23 Completed [facility] VACC[facility] 00:00:00 [facility] PFIZER COVID-19 2020-07-23 Completed [facility] VACC[facility] 00:00:00 [facility] PFIZER COVID-19 2020-07-23 Completed [facility]ACC[facility] 00:00:00 [facility] PFIZER COVID-19 2020-07-23 Completed [facility] VACC[facility] 00:00:00 [facility] PFIZER COVID-19 2020-07-23 Completed [facility] VACCIN[facility] 00:00:00 [facility] PFIZER COVID-19 2020-07-23 Completed [facility] VACCIN[facility] 00:00:00 [facility] PFIZER COVID-19 2020-07-23 Completed [facility] VACCIN[facility] 00:00:00 [facility] PFIZER COVID-19 2020-07-23 Completed [facility] VACC[facility] 00:00:00 [facility] PFIZER COVID-19 2020-07-23 Completed [facility] 00:00:00 [facility] PFIZER COVID-19 2020-07-23 Completed [facility] 00:00:00 [facility] SARS-COV-2 COVID-19 2020-07-23 Completed Unive rsity of PFIZER VACCINE 00:00:00 [facility] SARS-COV-2 COVID-19 2020-07-23 Completed Unive rsity of PFIZER VACCINE 00:00:00 [facility] SARS-COV-2 COVID-19 2020-07-23 Completed [facility]ive rsity of PFIZER VACCINE 00:00:00 [facility] SARS-COV-2 COVID-19 2020-07-23 Completed [facility]ive rsity of PFIZER VACCINE 00:00:00 [facility] SARS-COV-2 COVID-19 2020-07-23 Completed [facility] of PFIZER VACCINE 00:00:00 [facility] SARS-COV-2 COVID-19 2020-07-23 Completed [facility] of PFIZER VACCINE 00:00:00 [facility] SARS-COV-2 COVID-19 2020-07-23 Completed [facility] rs[facility] of PFIZER VACCINE 00:00:00 [facility] SARS-COV-2 COVID-19 2020-07-23 Completed [facility] of PFIZER VACCINE 00:00:00 [facility] SARS-COV-2 COVID-19 2020-07-23 Completed [facility] rs[facility] of PFIZER VACCINE 00:00:00 [facility] SARS-COV-2 COVID-19 2020-07-23 Completed [facility] rs[facility] of PFIZER VACCINE 00:00:00 [facility] SARS-COV-2 COVID-19 2020-07-23 Completed [facility] rsity of PFIZER VACCINE 00:00:00 [facility] SARS-COV-2 COVID-19 2020-07-23 Completed [facility] rs[facility] of PFIZER VACCINE 00:00:00 [facility] SARS-COV-2 COVID-19 2020-07-23 Completed [facility] rs[facility] of PFIZER VACCINE 00:00:00 [facility] SARS-COV-2 COVID-19 2020-07-23 Completed [facility] rsity of PFIZER VACCINE 00:00:00 [facility] SARS-COV-2 COVID-19 2020-07-23 Completed [facility] rs[facility] of PFIZER VACCINE 00:00:00 [facility] SARS-COV-2 COVID-19 2020-07-23 Completed [facility]ive rs[facility] of PFIZER VACCINE 00:00:00 [facility] SARS-COV-2 COVID-19 2020-07-23 Completed Unive rsity of PFIZER VACCINE 00:00:00 [facility] SARS-COV-2 COVID-19 2020-07-23 Completed [facility] rsity of PFIZER VACCINE 00:00:00 [facility] PFIZER COVID-19 2020-07-23 Completed [facility] 00:00:00 [facility] PFIZER COVID-19 2020-07-02 Completed [facility] VACCINATION 00:00:00 [facility] PFIZER COVID-19 2020-07-02 Completed [facility] VACCINATION 00:00:00 [facility] PFIZER COVID-19 2020-07-02 Completed [facility] VACCINATION 00:00:00 [facility] PFIZER COVID-19 2020-07-02 Completed [facility] VACCINATION 00:00:00 [facility] PFIZER COVID-19 2020-07-02 Completed [facility] VACCINATION 00:00:00 [facility] PFIZER COVID-19 2020-07-02 Completed [facility] VACCINATION 00:00:00 [facility] PFIZER COVID-19 2020-07-02 Completed [facility] VACCINATION 00:00:00 [facility] PFIZER COVID-19 2020-07-02 Completed [facility] VACCINATION 00:00:00 [facility] PFIZER COVID-19 2020-07-02 Completed [facility] VACCINATION 00:00:00 [facility] PFIZER COVID-19 2020-07-02 Completed [facility] VACCINATION 00:00:00 [facility] PFIZER COVID-19 2020-07-02 Completed [facility] VACCINATION 00:00:00 [facility] PFIZER COVID-19 2020-07-02 Completed [facility] VACCINATION 00:00:00 [facility] PFIZER COVID-19 2020-07-02 Completed [facility] VACCINATION 00:00:00 [facility] PFIZER COVID-19 2020-07-02 Completed [facility] VACCINATION 00:00:00 [facility] PFIZER COVID-19 2020-07-02 Completed [facility] VACCINATION 00:00:00 [facility] PFIZER COVID-19 2020-07-02 Completed [facility] VACCINATION 00:00:00 [facility] PFIZER COVID-19 2020-07-02 Completed [facility] VACCINATION 00:00:00 [facility] PFIZER COVID-19 2020-07-02 Completed [facility] VACCINATION 00:00:00 [facility] PFIZER COVID-19 2020-07-02 Completed [facility] VACCINATION 00:00:00 [facility] PFIZER COVID-19 2020-07-02 Completed [facility] VACCINATION 00:00:00 [facility] PFIZER COVID-19 2020-07-02 Completed [facility] VACCINATION 00:00:00 [facility] PFIZER COVID-19 2020-07-02 Completed [facility] VACCINATION 00:00:00 [facility] PFIZER COVID-19 2020-07-02 Completed [facility] VACCINATION 00:00:00 [facility] PFIZER COVID-19 2020-07-02 Completed [facility] VACCINATION 00:00:00 [facility] PFIZER COVID-19 2020-07-02 Completed [facility] VACCINATION 00:00:00 [facility] PFIZER COVID-19 2020-07-02 Completed [facility] VACCINATION 00:00:00 [facility] PFIZER COVID-19 2020-07-02 Completed [facility] VACCINATION 00:00:00 [facility] PFIZER COVID-19 2020-07-02 Completed [facility] VACCINATION 00:00:00 [facility] PFIZER COVID-19 2020-07-02 Completed [facility] VACCINATION 00:00:00 [facility] PFIZER COVID-19 2020-07-02 Completed [facility] VACCINATION 00:00:00 [facility] PFIZER COVID-19 2020-07-02 Completed [facility] VACCINATION 00:00:00 [facility] PFIZER COVID-19 2020-07-02 Completed [facility] VACCINATION 00:00:00 [facility] PFIZER COVID-19 2020-07-02 Completed [facility] VACCINATION 00:00:00 [facility] PFIZER COVID-19 2020-07-02 Completed [facility] VACCINATION 00:00:00 [facility] PFIZER COVID-19 2020-07-02 Completed [facility] VACCINATION 00:00:00 [facility] PFIZER COVID-19 2020-07-02 Completed [facility] VACCINATION 00:00:00 [facility] PFIZER COVID-19 2020-07-02 Completed [facility] VACCINATION 00:00:00 [facility] PFIZER COVID-19 2020-07-02 Completed [facility] VACCINATION 00:00:00 [facility] PFIZER COVID-19 2020-07-02 Completed [facility] VACCINATION 00:00:00 [facility] PFIZER COVID-19 2020-07-02 Completed [facility] VACCINATION 00:00:00 [facility] PFIZER COVID-19 2020-07-02 Completed [facility] VACCINATION 00:00:00 [facility] PFIZER COVID-19 2020-07-02 Completed [facility] 00:00:00 [facility] PFIZER COVID-19 2020-07-02 Completed [facility] VACCINATION 00:00:00 [facility] PFIZER COVID-19 2020-07-02 Completed [facility] VACCINATION 00:00:00 [facility] PFIZER COVID-19 2020-07-02 Completed [facility] VACCINATION 00:00:00 [facility] PFIZER COVID-19 2020-07-02 Completed [facility] VACCINATION 00:00:00 [facility] PFIZER COVID-19 2020-07-02 Completed [facility] VACCINATION 00:00:00 [facility] PFIZER COVID-19 2020-07-02 Completed [facility] VACCINATION 00:00:00 [facility] PFIZER COVID-19 2020-07-02 Completed [facility] VACCINATION 00:00:00 [facility] PFIZER COVID-19 2020-07-02 Completed [facility] VACCINATION 00:00:00 [facility] PFIZER COVID-19 2020-07-02 Completed [facility] VACCINATION 00:00:00 [facility] PFIZER COVID-19 2020-07-02 Completed [facility] VACCINATION 00:00:00 [facility] PFIZER COVID-19 2020-07-02 Completed [facility] VACCINATION 00:00:00 [facility] PFIZER COVID-19 2020-07-02 Completed [facility] VACCINATION 00:00:00 [facility] PFIZER COVID-19 2020-07-02 Completed [facility] VACCINATION 00:00:00 [facility] PFIZER COVID-19 2020-07-02 Completed [facility] VACCINATION 00:00:00 [facility] PFIZER COVID-19 2020-07-02 Completed [facility] VACCINATION 00:00:00 [facility] PFIZER COVID-19 2020-07-02 Completed [facility] VACCINATION 00:00:00 [facility] PFIZER COVID-19 2020-07-02 Completed [facility] VACCINATION 00:00:00 [facility] PFIZER COVID-19 2020-07-02 Completed [facility] VACCINATION 00:00:00 [facility] PFIZER COVID-19 2020-07-02 Completed [facility] VACCINATION 00:00:00 [facility] PFIZER COVID-19 2020-07-02 Completed [facility] VACCINATION 00:00:00 [facility] SARS-COV-2 COVID-19 2020-07-02 Completed Unive rsity of PFIZER VACCINE 00:00:00 [facility] SARS-COV-2 COVID-19 2020-07-02 Completed [facility]ive rsity of PFIZER VACCINE 00:00:00 [facility] SARS-COV-2 COVID-19 2020-07-02 Completed Unive rsity of PFIZER VACCINE 00:00:00 [facility] SARS-COV-2 COVID-19 2020-07-02 Completed [facility]ive rsity of PFIZER VACCINE 00:00:00 [facility] SARS-COV-2 COVID-19 2020-07-02 Completed [facility]ive rsity of PFIZER VACCINE 00:00:00 [facility] SARS-COV-2 COVID-19 2020-07-02 Completed [facility]ive rsity of PFIZER VACCINE 00:00:00 [facility] SARS-COV-2 COVID-19 2020-07-02 Completed [facility]ive rsity of PFIZER VACCINE 00:00:00 [facility] SARS-COV-2 COVID-19 2020-07-02 Completed [facility]ive rsity of PFIZER VACCINE 00:00:00 [facility] SARS-COV-2 COVID-19 2020-07-02 Completed [facility]ive rsity of PFIZER VACCINE 00:00:00 [facility] SARS-COV-2 COVID-19 2020-07-02 Completed [facility]ive rsity of PFIZER VACCINE 00:00:00 [facility] SARS-COV-2 COVID-19 2020-07-02 Completed [facility]ive rsity of PFIZER VACCINE 00:00:00 [facility] SARS-COV-2 COVID-19 2020-07-02 Completed [facility]ive rsity of PFIZER VACCINE 00:00:00 [facility] SARS-COV-2 COVID-19 2020-07-02 Completed [facility] rsity of PFIZER VACCINE 00:00:00 [facility] SARS-COV-2 COVID-19 2020-07-02 Completed [facility]ive rsity of PFIZER VACCINE 00:00:00 [facility] SARS-COV-2 COVID-19 2020-07-02 Completed [facility] rsity of PFIZER VACCINE 00:00:00 [facility] SARS-COV-2 COVID-19 2020-07-02 Completed [facility]ive rsity of PFIZER VACCINE 00:00:00 [facility] SARS-COV-2 COVID-19 2020-07-02 Completed [facility]ity of PFIZER VACCINE 00:00:00 [facility] SARS-COV-2 COVID-19 2020-07-02 Completed [facility]ive rsity of PFIZER VACCINE 00:00:00 [facility] PFIZER COVID-19 2020-07-02 Completed [facility] 00:00:00 [facility] Influenza Virus 2017-03-08 [...] [facility] Pneumococcal 13 2014-01-30 Completed [facility] of Conjugate, PCV13 00:00:00 [facility] dical (Prevnar 13) Branch Influenza Virus 2014-01-30 Completed [facility] of Vaccine (3+ yrs) 00:00:00 [facility] Pneum[facility] 13 2014-01-30 Completed [facility] of Conjugate, PCV13 00:00:00 [facility] dical (Prevnar 13) Branch Influenza Virus 2014-01-30 Completed [facility] Vaccine (3+ yrs) 00:00:00 [facility] Pneumococcal 13 2014-01-30 Completed [facility] of Conjugate, PCV13 00:00:00 [facility] dical (Prevnar 13) Branch Influenza Virus 2014-01-30 Completed [facility] Vaccine (3+ yrs) 00:00:00 [facility] Pneumococcal 13 2014-01-30 Completed [facility] of Conjugate, PCV13 00:00:00 [facility] dical (Prevnar 13) Branch Influenza Virus 2014-01-30 Completed [facility] Vaccine (3+ yrs) 00:00:00 [facility] Pneumococcal 13 2014-01-30 Completed [facility] of Conjugate, PCV13 00:00:00 [facility] dical (Prevnar 13) Branch Influenza Virus 2014-01-30 Completed [facility] of Vaccine (3+ yrs) 00:00:00 [facility] Pneumococcal 13 2014-01-30 Completed [facility] [...] [facility] Pneumococcal 13 2014-01-30 Completed Universit y [...] f Polysaccharide, 00:00:00 [facility] ical PPSV23 (PNEUMOVAX) Branch Influenza Virus 2012-02-16 Completed [facility] of Vaccine 00:00:00 [facility] PPD (TB) 2012-02-16 Completed University of 00:00:00 [facility] Pneumococcal 2012-02-16 Completed University o f Polysaccharide, 00:00:00 [facility] ical PPSV23 (PNEUMOVAX) Branch Influenza Virus 2012-02-16 [...] University of 00:00:00 [facility] Hep B, Adol or Pedi 2011-09-01 Completed Unive rsity of Dosage 00:00:00 [facility] Hep B, Adol or Pedi 2011-09-01 Completed Unive rsity of Dosage 00:00:00 [facility] Hep B, Adol or Pedi 2011-09-01 Completed [facility]ive rsity of Dosage 00:00:00 [facility] Hep B, [...] Unive rsity of Dosage 00:00:00 [facility] Hep B, Adol or Pedi 2011-03-17 Completed Unive rsity of Dosage 00:00:00 [facility] Hep B, Adol or Pedi 2011-03-17 Completed [facility]ive rsity of Dosage 00:00:00 [facility] Hep B, Adol or Pedi 2011-03-17 Completed Unive rsity of Dosage 00:00:00 [facility] Hep B, Adol or Pedi 2011-03-17 Completed Unive rsity of Dosage 00:00:00 [facility] Influenza Virus 2011-02-10 Completed Universit y of Vaccine 00:00:00 [facility] Hep B, Adol or Pedi 2011-02-10 Completed Unive rsity of Dosage 00:00:00 [facility] Influenza Virus 2011-02-10 Completed Universit y of Vaccine 00:00:00 [facility] Hep B, Adol or Pedi 2011-02-10 Completed Unive rsity of Dosage 00:00:00 [facility] Influenza Virus 2011-02-10 Completed Universit y of Vaccine 00:00:00 [facility] Hep B, Adol or Pedi 2011-02-10 Completed Unive rsity of Dosage 00:00:00 [facility] Influenza Virus 2011-02-10 Completed Universit y of Vaccine 00:00:00 [facility] Hep B, Adol or Pedi 2011-02-10 Completed Unive rsity of Dosage 00:00:00 [facility] Influenza Virus 2011-02-10 Completed Universit y of Vaccine 00:00:00 [facility] Hep B, Adol or Pedi 2011-02-10 Completed Unive rsity of Dosage 00:00:00 [facility] Influenza Virus 2011-02-10 Completed Universit y of Vaccine 00:00:00 [facility] Hep B, Adol or Pedi 2011-02-10 Completed Unive rsity of Dosage 00:00:00 [facility] Influenza Virus 2011-02-10 Completed Universit y of Vaccine 00:00:00 [facility] Hep B, Adol or Pedi 2011-02-10 Completed Unive rsity of Dosage 00:00:00 [facility] Influenza Virus 2011-02-10 Completed Universit y of Vaccine 00:00:00 [facility] Hep B, Adol or Pedi 2011-02-10 Completed Unive rsity of Dosage 00:00:00 [facility] Influenza Virus 2011-02-10 Completed Universit y of Vaccine 00:00:00 [facility] Hep B, Adol or Pedi 2011-02-10 Completed Unive rsity of Dosage 00:00:00 [facility] Influenza Virus 2011-02-10 Completed Universit y of Vaccine 00:00:00 [facility] Hep B, Adol or Pedi [...] 2011-02-10 Completed Universit y of Vaccine 00:00:00 [facility] Hep B, Adol or Pedi 2011-02-10 Completed Unive rsity of Dosage 00:00:00 [facility] Influenza Virus 2011-02-10 Completed Universit y of Vaccine 00:00:00 [facility] Hep B, Adol or Pedi 2011-02-10 Completed Unive rsity of Dosage 00:00:00 [facility] Influenza Virus 2011-02-10 Completed Universit y of Vaccine 00:00:00 [facility] Hep B, Adol or Pedi 2011-02-10 Completed Unive rsity of Dosage 00:00:00 [facility] Influenza Virus 2011-02-10 Completed Universit y of Vaccine 00:00:00 [facility] Hep B, Adol or Pedi 2011-02-10 Completed Unive rsity of Dosage 00:00:00 [facility] Influenza Virus 2011-02-10 Completed Universit y of Vaccine 00:00:00 [facility] Hep B, Adol or Pedi 2011-02-10 Completed Unive rsity of Dosage 00:00:00 [facility] Influenza Virus 2011-02-10 Completed Universit y of Vaccine 00:00:00 [facility] Hep B, Adol or Pedi [...] 2010-11-18 Completed University of 00:00:00 [facility] TDAP (ADACEL) 2010-11-18 Completed University of VACCINE 00:00:00 [facility] PPD (TB) 2010-11-18 Completed University of 00:00:00 [facility] TDAP (ADACEL) 2010-11-18 Completed University of VACCINE 00:00:00 [facility] PPD (TB) 2010-11-18 Completed University of 00:00:00 [facility] TDAP (ADACEL) 2010-11-18 Completed University [...] 2010-11-18 Completed University of 00:00:00 [facility] TDAP (ADACEL) 2010-11-18 Completed University of VACCINE 00:00:00 [facility] PPD (TB) 2010-11-18 Completed University of 00:00:00 [facility] TDAP (ADACEL) 2010-11-18 Completed University of VACCINE 00:00:00 [facility] PPD (TB) 2010-11-18 Completed University of 00:00:00 [facility] TDAP (ADACEL) 2010-11-18 Completed University of VACCINE 00:00:00 [facility] PPD (TB) 2010-11-18 Completed University of 00:00:00 [facility] TDAP (ADACEL) 2010-11-18 Completed University of VACCINE 00:00:00 [facility] PPD (TB) 2010-11-18 Completed University of 00:00:00 [facility] TDAP (ADACEL) 2010-11-18 Completed University of VACCINE 00:00:00 [facility] PPD (TB) 2010-11-18 Completed University of 00:00:00 [facility] TDAP (ADACEL) 2010-11-18 Completed University of VACCINE 00:00:00 [facility] PPD (TB) 2010-11-18 Completed University of 00:00:00 [facility] TDAP (ADACEL) 2010-11-18 Completed University [...] 2004-03-02 Completed University of 00:00:00 [facility] HEPATITIS A 2004-03-02 Completed University of 00:00:00 [facility] HEPATITIS A 2004-03-02 Completed University of 00:00:00 [facility] HEPATITIS A 2004-03-02 Completed University of 00:00:00 [facility] HEPATITIS A 2004-03-02 Completed University of 00:00:00 [facility] HEPATITIS A 2004-03-02 Completed University of 00:00:00 [facility] HEPATITIS A 2004-03-02 Completed University of 00:00:00 [facility] HEPATITIS A 2004-03-02 Completed University of 00:00:00 [facility] HEPATITIS A 2004-03-02 Completed University of 00:00:00 [facility] HEPATITIS A 2004-03-02 Completed University of 00:00:00 [facility] HEPATITIS A 2004-03-02 Completed University of 00:00:00 [facility] HEPATITIS A 2004-03-02 Completed University of 00:00:00 [facility] HEPATITIS A 2004-03-02 Completed University of 00:00:00 [facility] HEPATITIS A 2004-03-02 Completed University of 00:00:00 [facility] HEPATITIS A 2004-03-02 Completed University [...] Branch PPD (TB) 2001-10-04 Completed University 00:00:00 [facility] Vital Signs Vital Name Observation Time Observation Value Comments Source Systolic blood 2022-05-10 22:00:00 159 mm[Hg] Univer sity of pressure [facility] Diastolic blood 2022-05-10 22:00:00 87 mm[Hg] Unive rsity of pressure [facility] Heart rate 2022-05-10 22:00:00 56 /min Universi ty of [facility] Body temperature 2022-05-10 22:00:00 36.61 Amina Univ ersity of [facility] Respiratory rate 2022-05-10 22:00:00 17 /min Univ ersity of [facility] Oxygen saturation in 2022-05-10 22:00:00 98 /min University of Arterial blood by [place] [employer] Pulse oximetry Branch Body weight 2022-05-10 16:29:00 78.926 kg Universi ty of [facility] BMI 2022-05-10 16:29:00 29.87 kg/m2 Universi ty of [facility] Systolic blood 2022-05-08 22:30:00 168 mm[Hg] Univer sity of pressure [facility] Diastolic blood 2022-05-08 22:30:00 85 mm[Hg] Unive rsity of pressure [facility] Heart rate 2022-05-08 22:30:00 68 /min Universi ty of [facility] Oxygen saturation in 2022-05-08 22:30:00 100 /min University of Arterial blood by [facility] porfirio Pulse oximetry Branch Body temperature 2022-05-08 22:22:00 35.89 Amina Univ ersity of [facility] Respiratory rate 2022-05-08 22:22:00 14 /min Univ ers[facility] Body weight 2022-05-08 22:22:00 78.926 kg [facility]i [facility] [place] [facility] [place] BMI 2022-05-08 22:22:00 29.87 kg/m2 Universi ty of [facility] Systolic blood 2022-05-07 00:00:00 149 mm[Hg] Univer sity of pressure [facility] Diastolic blood 2022-05-07 00:00:00 132 mm[Hg] [...] 96 /min University of [facility]terial blood by [place] [facility] Branch Systolic blood [...] 162.6 cm [facility] [place] Body weight 2022-03-05 15:18:00 74.707 kg [facility] BMI 2022-03-05 15:18:00 28.27 kg/m2 [facility] Systolic blood 2022-02-16 21:41:00 169 mm[Hg] Univer [facility]ity of pressure [facility] Diastolic blood 2022-02-16 21:41:00 86 mm[Hg] Unive rsity of pressure [facility] Heart rate 2022-02-16 21:41:00 51 /min [facility] [place] Body temperature 2022-02-16 21:41:00 36.56 Amina Univ ersity of [facility] Respiratory rate 2022-02-16 21:41:00 17 /min Univ ersity of [facility] Oxygen saturation in 2022-02-16 21:41:00 98 /min [facility] Arterial blood by [facility] Pulse oximetry Branch Body height [...] 2021-11-20 13:42:00 36.39 Amina Univ ersity of [facility] Respiratory rate 2021-11-20 13:42:00 16 /min Univ ersity of [facility] Body height 2021-11-20 13:42:00 162.6 cm [facility] Body weight 2021-11-20 13:42:00 84.369 kg [facility] [place] [facility] [place] BMI 2021-11-20 13:42:00 31.93 kg/m2 Universi ty of [facility] Systolic blood 2021-07-14 15:18:00 142 mm[Hg] [facility] Diastolic blood 2021-07-14 15:18:00 76 mm[Hg[facility] Heart rate 2021-07-14 15:18:00 61 [facility] Body height 2021-07-14 15:18:00 [facility]6 [facility] Body weight 2021-07-14 15:18:00 [facility]802 [facility] BMI 2021-07-14 15:18:00 35.87 kg/m2 [facility] Systolic blood 2022-05-10 22:00:00 159 mm[Hg] Univer sity of [facility] Diastolic blood 2022-05-10 22:00:00 87 mm[Hg] Unive rsity of [facility] Heart rate 2022-05-10 22:00:00 56 /min Universi ty of [facility] Body temperature 2022-05-10 22:00:00 36.61 Amina [facility] Respiratory rate 2022-05-10 22:00:00 17 /min [facility] Oxygen saturation in 2022-05-10 22:00:00 98 /min [facility] Arterial blood by [facility] Pulse oximetry Branch Body weight 2022-05-10 16:29:00 78.926 kg Universi ty of [facility] BMI 2022-05-10 16:29:00 29.87 kg/m2 [facility] [place] [facility] [place] Body height 2022-05-06 20:12:00 162.6 cm Universi ty [facility] Systolic blood 2022-03-05 15:23:00 167 mm[Hg] Univer sity of [facility] Diastolic blood 2022-03-05 15:23:00 105 mm[Hg] Unive rsity of pressure [facility] Heart rate 2022-03-05 15:23:00 49 /min Universi ty of [facility] Body temperature 2022-03-05 15:18:00 36.67 Amina Univ ersity of [facility] Respiratory rate 2022-03-05 15:18:00 18 /min [facility] Body height 2022-03-05 15:18:00 162.6 cm [facility] Body weight 2022-03-05 15:18:00 74.707 kg [facility] BMI 2022-03-05 15:18:00 28.27 kg/m2 [facility] Oxygen saturation in 2022-02-16 21:41:00 98 /min University Arterial blood by [facility] Pulse oximetry Branch Systolic blood 2020-12-08 15:48:00 125 mm[Hg] [facility] pressure Diastolic blood 2020-12-08 15:48:00 76 mm[Hg] [facility] pressure Heart rate 2020-12-08 15:48:00 64 /min [facility] Body temperature 2020-12-08 15:48:00 36.61 Amina [facility] Respiratory rate 2020-12-08 15:48:00 17 /min [facility] Body height 2020-12-08 15:48:00 162.6 cm [facility] Body weight 2020-12-08 15:48:00 98.884 kg [facility] BMI 2020-12-08 15:48:00 37.42 kg/m2 [facility] Oxygen saturation in 2020-12-08 15:48:00 97 /min [facility] Arterial blood by Pulse oximetry Respitory Rate 2020-08-30 13:00:00 Memori al [place] Systolic (mm Hg) 2020-08-30 13:00:00 Caesar rial Marty Diastolic (mm Hg) 2020-08-30 13:00:00 Mem orial [place] Systolic (mm Hg) 2020-08-30 11:00:00 Caesar rial Marty Diastolic (mm Hg) 2020-08-30 11:00:00 Mem orial [place] Temperature Oral (F) 2020-08-30 11:00:00 98.4 F [facility] [place] Respitory Rate 2020-08-30 11:00:00 Memori al Marty Respitory Rate 2020-08-30 10:00:00 Memori al [place] Systolic (mm Hg) 2020-08-30 10:00:00 Caesar rial [place] Diastolic (mm Hg) 2020-08-30 10:00:00 Mem orial Marty Temperature Oral (F) 2020-08-30 00:00:00 96.9 F Claude Ferguson Temperature Oral (F) 2020-08-29 11:26:00 97.6 F Claude Ferguson Height 2020-08-29 10:30:00 162.56 cm [facility] Weight 2020-08-29 10:30:00 [facility] BMI Calculated 2020-08-29 10:30:00 Darien Hammond Procedures Procedure Date / Time Performing Clinician Source Performed URINALYSIS 2022-05-10 19:36:00 Home Matthews [facility] TROPONIN I 2022-05-10 18:34:00 Home Matthews [facility] COMP. METABOLIC PANEL 2022-05-10 18:34:00 Home Matthews [facility] ([id number]) [facility] CBC WITH DIFF 2022-05-10 18:34:00 Home Matthews [facility] XR CHEST 2 VW 2022-05-10 17:24:58 Home Matthews [facility] CONSENT/REFUSAL FOR 2022-05-10 16:26:23 Doctor Unassigned, [facility] DIAGNOSIS AND TREATMENT [place] [facility] CONSENT/REFUSAL FOR 2022-05-10 16:26:09 Doctor Unassigned, [facility] DIAGNOSIS AND TREATMENT [place] [facility] URINALYSIS 2022-05-08 22:43:00 Theresa Hickman [facility] XR CHEST 2 VW 2022-05-06 22:56:53 Anette Olea [facility] COMP. METABOLIC PANEL 2022-05-06 22:14:00 Anette Olea [facility] ([id number]) [facility] CBC WITH DIFF 2022-05-06 22:14:00 Anette Olea [facility] COVID-19 (ID NOW RAPID 2022-05-06 22:14:00 Anette Olea [facility] TESTING) Medical Branch BASIC METABOLIC PANEL (NA, 2022-04-22 21:23:00 Paulette Gray [facility] K, CL, CO2, GLUCOSE, BUN, Medica l Branch CREATININE, [place]) CBC WITH DIFF 2022-04-22 21:23:00 Paulette Gray [facility] CONSENT/REFUSAL FOR 2022-04-22 19:45:46 Doctor Unassigned, [facility] DIAGNOSIS AND TREATMENT [place] Medical Branch SARS-COV-2 COVID-19 2022-03-05 16:09:27 [facility] DIMITRIS-SUCROSE VACCINE [address] [place] [address] YRS+, BIVALENT 0.3ML, IM, (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) FLU 2022-03-05 16:09:27 [facility] VACC(),65+YR,0.5 Medica l Branch ML,IM,ADJUVANTED,QUAD(FLUA D) FLU 2022-03-05 16:09:27 [facility] VACC(),65+YR,0.5 Medica l Branch ML,IM,ADJUVANTED,QUAD(FLUA D) SARS-COV-2 COVID-19 2022-03-05 16:09:27 [facility] DIMITRIS-SUCROSE VACCINE [address] [place] [address] YRS+, BIVALENT 0.3ML, IM, (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) MAGNESIUM 2022-02-15 09:41:00 Sofia Garcia [facility] BASIC METABOLIC PANEL (NA, 2022-02-15 09:41:00 Sofia Garcia [facility] K, CL, CO2, GLUCOSE, BUN, Medica l Branch CREATININE, CA) CBC WITH DIFF 2022-02-15 09:41:00 Sofia Garcia [facility] N-TERMINAL PRO-BNP 2022-02-15 09:41:00 Sofia Garcia [facility] CBC WITH DIFF 2022-02-15 09:41:00 Sofia Garcia [facility] BASIC METABOLIC PANEL (NA, 2022-02-15 09:41:00 Sofia Garcia [facility] K, CL, CO2, GLUCOSE, BUN, Medica l Branch CREATININE, CA) MAGNESIUM 2022-02-15 09:41:00 Sofia Garcia [facility] N-TERMINAL PRO-BNP 2022-02-15 09:41:00 Sofia Garcia [facility] BASIC METABOLIC PANEL (NA, 2022-02-13 09:40[facility]00 [facility], CO2, GLUCOSE, BUN, Medica l Branch CREATININE, CA) CBC WITH DIFF 2022-02-13 09:40:00 Sofia Garcia [facility] BASIC METABOLIC PANEL (NA, 2022-02-13 09:40:00 Sofia Garcia [facility] K, CL, CO2, GLUCOSE, BUN, Medica l Branch CREATININE, CA) CBC WITH DIFF 2022-02-13 09:40:00 Radha [facility] TROPONIN I 2022-02-11 23:41:00 Radha [facility] N-TERMINAL PRO-BNP 2022-02-11 23:41:00 Sofia Garcia [facility] TROPONIN I 2022-02-11 23:41:00 Radha [facility] N-TERMINAL PRO-BNP 2022-02-11 23:41:00 Sofia Garcia [facility] HB ECG ROUTINE & RHYTHM 2022-02-11 22:15:36 [facility] (TTE) 2022-02-11 21:26:50 [facility] (TTE) 2022-02-11 21:26:50 [facility] PELVIS W 2022-02-11 07:45:[address] [facility] CT ABDOMEN PELVIS W 2022-02-11 07:45:43 Reilly Means [facility] CONTRAST [facility] RAPID INFLUENZA A/B 2022-02-11 06:54:00 Reilly Means [facility] RAPID INFLUENZA A/B 2022-02-11 06:54:00 Reilly Means [facility] URINALYSIS 2022-02-11 06:45:00 Reilly Means [place] [facility] URINE CULTURE 2022-02-11 06:45:00 Reilly Means [facility] URINALYSIS 2022-02-11 06:45:00 eRilly Means [facility] URINE CULTURE 2022-02-11 06:45:00 Reilly Means [facility] HB ECG ROUTINE & RHYTHM 2022-02-11 05:22:08 Reilly Means [facility] HB ECG ROUTINE & RHYTHM 2022-02-11 05:22:08 Reilly Means [facility] BLOOD CULTURE SCREEN 2022-02-11 04:58:00 Reilly Means [facility] TROPONIN I 2022-02-11 04:58:00 Reilly Means [facility] COMP. METABOLIC PANEL 2022-02-11 04:58:00 Reilly Means [facility] ([id number]) Medical Branch CBC WITH DIFF 2022-02-11 04:58:00 Reilly Means [facility] PROTHROMBIN TIME / INR 2022-02-11 04:58:00 Reilly Means [facility] ACTIVATED PARTIAL THRMPLAS 2022-02-11 04:58:00 Reilly Means [facility] N-TERMINAL PRO-BNP 2022-02-11 04:58:00 Reilly Means [facility] LACTIC ACID WHOLE BLOOD 2022-02-11 04:58:[address] [facility] COVID-19 (ID NOW RAPID 2022-02-11 04:58:00 Reilly Means [facility] TESTING) Medical Branch LAB ONLY COVID 2022-02-11 04:58:00 Reilly Means [facility] INTERPRETATION [facility] CBC WITH DIFF 2022-02-11 04:58:00 Reilly Means [facility] ACTIVATED PARTIAL THRMPLAS 2022-02-11 04:58:00 Reilly Means [facility] PROTHROMBIN TIME / INR 2022-02-11 04:58:00 Reilly Means [facility] COVID-19 (ID NOW RAPID 2022-02-11 04:58:00 Reilly Means [facility]) [facility] COMP. METABOLIC PANEL 2022-02-11 04:58:00 Reilly Means [facility] ([id number]) Medical Branch TROPONIN I 2022-02-11 04:58:00 Miguelangel [facility] N-TERMINAL PRO-BNP 2022-02-11 04:58:00 Reilly Means [facility] BLOOD CULTURE SCREEN 2022-02-11 04:58:00 Reilly Means [facility] LACTIC ACID WHOLE BLOOD 2022-02-11 04:58:[address] [facility] LAB ONLY COVID 2022-02-11 04:58:00 Reilly Means [facility] INTERPRETATION [facility] XR CHEST 1 2022-02-11 04:27:42 Miguelangel Reilly [facility] XR CHEST 1 2022-02-11 04:27:42 Miguelangel Reilly [facility] HOSPITAL ADMISSION 2022-02-10 05:01:00 Doctor Unassigned, [facility] [place] [facility] HOSPITAL ADMISSION 2022-02-10 05:01:00 Doctor Unassigned, [facility] Name [facility] ECG 12-LEAD 2021-07-14 15:14:00 Elan Lira [facility] [id number] 2021-06-17 00:00:00 RIKY CLARK [facility] GASTROINTESTINAL PANEL 2020-12-08 22:21:00 Eliseo Arce [facility] XR ABDOMEN 1 2020-12-08 18:06:32 Eliseo Arce spijose OR [place] < 1 HOUR 2020-09-05 22:39:00 Eliseo Arce spital SURGICAL PATHOLOGY REQUEST 2020-09-05 21:54:00 Eliseo Arce [facility] XR CHEST 1 PORTABLE 2020-09-05 19:55:00 [facility] DISCHARGE PATIENT 2020-09-05 17:27:55 Lucas [facility] AN ELECTIVE 2020-09-05 16:47:23 [facility], INTRAOPERATIVE 2020-09-05 16:27:00 Eliseo Arce [facility] PARTIAL THROMBOPLASTIN 2020-09-05 15:04:00 Sarai Maharaj [facility] TIME (PTT) M. PROTHROMBIN TIME WITH INR 2020-09-05 15:04:00 Mindy Maharaj [facility] M. Plan of Care Planned Activity Planned Date Details Comments Source Future Scheduled 2022-12-23 Screening for [facility] Test 06:27:39 malignant neoplasm of colon (procedure) [code = 120506901] Future Scheduled 2022-12-23 Screening for [facility] Test 06:27:39 malignant neoplasm of colon (procedure) [code = 612462209] Future Scheduled 2022-12-23 Screening for [facility] Test 06:27:39 malignant neoplasm of colon (procedure) [code = [id number]] Future Scheduled 2022-12-23 SHINGLES VACCINES (1 Met [facility] Test 06:27:39 of 2) [code = SHINGLES VACCINES (1 of 2)] Future Scheduled 2022-12-23 BREAST CANCER [facility] Test 06:27:39 SCREENING [code = BREAST CANCER SCREENING] Future Scheduled 2022-12-23 Screening for [facility] Test 06:27:39 malignant neoplasm of colon (procedure) [code = 964371996] Future Scheduled 2022-12-23 Screening for [facility] Test 06:27:39 malignant neoplasm of colon (procedure) [code = [id number]] Future Scheduled 2022-12-23 HEPATITIS B VACCINES Met [facility] Test 06:27:39 (1 of 3 - Risk 3-dose series) [code = HEPATITIS B VACCINES (1 of 3 - Risk 3-dose series)] Future Scheduled 2022-12-23 COVID-19 VACCINE (3 - Me [facility] Test 06:27:39 Pfizer series) [code = COVID-19 VACCINE (3 - Pfizer series)] Future Scheduled 2022-12-23 65+ PNEUMOCOCCAL [facility] Test 06:27:39 VACCINE (4 - PPSV23 if available, else PCV20) [code = 65+ PNEUMOCOCCAL VACCINE (4 - PPSV23 if available, else PCV20)] Future Scheduled 2022-12-23 INFLUENZA VACCINE [facility] Test 06:27:39 [code = INFLUENZA VACCINE] Future Scheduled 2022-12-23 Screening for [facility] Test 06:27:39 malignant neoplasm of colon (procedure) [code = [id number]] Future Scheduled 2022-12-23 Screening for [facility] Test 06:27:39 malignant neoplasm of colon (procedure) [code = [id number]] Future Scheduled 2022-12-23 Screening for [facility] Test 06:27:39 malignant neoplasm of colon (procedure) [code = 105988412] Future Scheduled 2022-12-23 SHINGLES VACCINES (1 Met [facility] Test 06:27:39 of 2) [code = SHINGLES VACCINES (1 of 2)] Future Scheduled 2022-12-23 BREAST CANCER [facility] Test 06:27:39 SCREENING [code = BREAST CANCER SCREENING] Future Scheduled 2022-12-23 Screening for [facility] Test 06:27:39 malignant neoplasm of colon (procedure) [code = 968632344] Future Scheduled 2022-12-23 Screening for [facility] Test 06:27:39 malignant neoplasm of colon (procedure) [code = 147740836] Future Scheduled 2022-12-23 HEPATITIS B VACCINES Met [facility] Test 06:27:39 (1 of 3 - Risk 3-dose series) [code = HEPATITIS B VACCINES (1 of 3 - Risk 3-dose series)] Future Scheduled 2022-12-23 COVID-19 VACCINE (3 - [facility] Test 06:27:39 Pfizer series) [code = COVID-19 VACCINE (3 - Pfizer series)] Future Scheduled 2022-12-23 65+ [facility]OC[facility]CCAL [facility] Test 06:27:39 VACCINE (4 - PPSV23 if available, else PCV20) [code = 65+ PNEUMOCOCCAL VACCINE (4 - PPSV23 if available, else PCV20)] Future Scheduled 2022-12-23 INFLUENZA VACCINE [facility] Test 06:27:39 [code = INFLUENZA VACCINE] Future Scheduled 2022-12-23 Screening for [facility] Test 06:27:39 malignant neoplasm of colon (procedure) [code = 635733844] Future Scheduled 2022-12-23 Screening for [facility] Test 06:27:39 malignant neoplasm of colon (procedure) [code = 315963766] Future Scheduled 2022-12-23 Screening [facility] Test 06:27:39 malignant neoplasm of colon (procedure) [code = 552472675] Future Scheduled 2022-12-23 SHINGLES VACCINES (1 Met [facility] Test 06:27:39 of 2) [code = SHINGLES VACCINES (1 of 2)] Future Scheduled 2022-12-23 BREAST CANCER [facility] Test 06:27:39 SCREENING [code = BREAST CANCER SCREENING] Future Scheduled 2022-12-23 Screening for [facility] Test 06:27:39 malignant neoplasm of colon (procedure) [code = 999865427] Future Scheduled 2022-12-23 Screening for [facility] Test 06:27:39 malignant neoplasm of colon (procedure) [code = 511648581] Future Scheduled 2022-12-23 HEPATITIS B VACCINES Met [facility] Test 06:27:39 (1 of 3 - Risk 3-dose series) [code = HEPATITIS B VACCINES (1 of 3 - Risk 3-dose series)] Future Scheduled 2022-12-23 COVID-19 VACCINE (3 - [facility] Test 06:27:39 Pfizer series) [code = COVID-19 VACCINE (3 - Pfizer series)] Future Scheduled 2022-12-23 65+ PNEUMOCOCCAL [facility] Test 06:27:39 VACCINE (4 - PPSV23 if available, else PCV20) [code = 65+ PNEUMOCOCCAL VACCINE (4 - PPSV23 if available, else PCV20)] Future Scheduled 2022-12-23 INFLUENZA VACCINE [facility] Test 06:27:39 [code = INFLUENZA VACCINE] Future Scheduled 2022-12-23 Screening for [facility] Test 06:27:39 malignant neoplasm of colon (procedure) [code = 855138675] Future Scheduled 2022-12-23 Screening for [facility] Test 06:27:39 malignant neoplasm of colon (procedure) [code = 342656803] Future Scheduled 2022-12-23 Screening for [facility] Test 06:27:39 malignant neoplasm of colon (procedure) [code = 242472002] Future Scheduled 2022-12-23 SHINGLES VACCINES (1 Met [facility] Test 06:27:39 of 2) [code = SHINGLES VACCINES (1 of 2)] Future Scheduled 2022-12-23 BREAST CANCER [facility] Test 06:27:39 SCREENING [code = BREAST CANCER SCREENING] Future Scheduled 2022-12-23 Screening for [facility] Test 06:27:39 malignant neoplasm of colon (procedure) [code = 066820095] Future Scheduled 2022-12-23 Screening for [facility] Test 06:27:39 malignant neoplasm of colon (procedure) [code = 732642814] Future Scheduled 2022-12-23 HEPATITIS B VACCINES Met [facility] Test 06:27:39 (1 of 3 - Risk 3-dose series) [code = HEPATITIS B VACCINES (1 of 3 - Risk 3-dose series)] Future Scheduled 2022-12-23 COVID-19 VACCINE (3 - [facility] Test 06:27:39 Pfizer series) [code = COVID-19 VACCINE (3 - Pfizer series)] Future Scheduled 2022-12-23 65+ PNEUMOCOCCAL [facility] Test 06:27:39 VACCINE (4 - PPSV23 if available, else PCV20) [code = 65+ PNEUMOCOCCAL VACCINE (4 - PPSV23 if available, else PCV20)] Future Scheduled 2022-12-23 INFLUENZA VACCINE [facility] Test 06:27:39 [code = INFLUENZA VACCINE] Future Scheduled 2022-12-23 Screening for [facility] Test 06:27:39 malignant neoplasm of colon (procedure) [code = 707419128] Future Scheduled 2022-12-23 Screening for [facility] Test 06:27:39 malignant neoplasm of colon (procedure) [code = 053267936] Future Scheduled 2022-12-23 Screening for [facility] Test 06:27:39 malignant neoplasm of colon (procedure) [code = 612356131] Future Scheduled 2022-12-23 SHINGLES VACCINES (1 Met [facility] Test 06:27:39 of 2) [code = SHINGLES VACCINES (1 of 2)] Future Scheduled 2022-12-23 BREAST CANCER [facility] Test 06:27:39 SCREENING [code = BREAST CANCER SCREENING] Future Scheduled 2022-12-23 Screening for [facility] Test 06:27:39 malignant neoplasm of colon (procedure) [code = 631258958] Future Scheduled 2022-12-23 Screening for [facility] Test 06:27:39 malignant neoplasm of colon (procedure) [code = 610340889] Future Scheduled 2022-12-23 HEPATITIS B VACCINES Met [facility] Test 06:27:39 (1 of 3 - Risk 3-dose series) [code = HEPATITIS B VACCINES (1 of 3 - Risk 3-dose series)] Future Scheduled 2022-12-23 COVID-19 VACCINE (3 - [facility] Test 06:27:39 Pfizer series) [code = COVID-19 VACCINE (3 - Pfizer series)] Future Scheduled 2022-12-23 65+ [facility]OCOCCAL [facility] Test 06:27:39 VACCINE (4 - PPSV23 if available, else PCV20) [code = 65+ PNEUMOCOCCAL VACCINE (4 - PPSV23 if available, else PCV20)] Future Scheduled 2022-12-23 ZZZ INFLUENZA VACCINE [facility] Test 06:27:39 [code = ZZZ INFLUENZA VACCINE] Future Scheduled 2022-12-13 Screening for [facility] Test 16:46:16 malignant neoplasm of colon (procedure) [code = 310299739] Future Scheduled 2022-12-13 Screening for [facility] Test 16:46:16 malignant neoplasm of colon (procedure) [code = 712377266] Future Scheduled 2022-12-13 Screening for [facility] Test 16:46:16 malignant neoplasm of colon (procedure) [code = 115905993] Future Scheduled 2022-12-13 SHINGLES VACCINES (1 Met [facility] Test 16:46:16 of 2) [code = SHINGLES VACCINES (1 of 2)] Future Scheduled 2022-12-13 BREAST CANCER [facility] Test 16:46:16 SCREENING [code = BREAST CANCER SCREENING] Future Scheduled 2022-12-13 Screening for [facility] Test 16:46:16 malignant neoplasm of colon (procedure) [code = 362529812] Future Scheduled 2022-12-13 Screening for [facility] Test 16:46:16 malignant neoplasm of colon (procedure) [code = 880016171] Future Scheduled 2022-12-13 HEPATITIS B VACCINES Met [facility] Test 16:46:16 (1 of 3 - Risk 3-dose series) [code = HEPATITIS B VACCINES (1 of 3 - Risk 3-dose series)] Future Scheduled 2022-12-13 COVID-19 VACCINE (3 - [facility] Test 16:46:16 Pfizer series) [code = COVID-19 VACCINE (3 - Pfizer series)] Future Scheduled 2022-12-13 65+ [facility] 16:46:16 VACCINE (4 - PPSV23 if available, else PCV20) [code = 65+ PNEUMOCOCCAL VACCINE (4 - PPSV23 if available, else PCV20)] Future Scheduled 2022-12-13 INFLUENZA VACCINE [facility] Test 16:46:16 [code = INFLUENZA VACCINE] Future Scheduled 2022-12-13 Screening [facility] Test 16:46:16 malignant neoplasm of colon (procedure) [code = 142545220] Future Scheduled 2022-12-13 Screening for [facility] Test 16:46:16 malignant neoplasm of colon (procedure) [code = 888525978] Future Scheduled 2022-12-13 Screening [facility] Test 16:46:16 malignant neoplasm of colon (procedure) [code = 468278850] Future Scheduled 2022-12-13 SHINGLES VACCINES (1 Met [facility] Test 16:46:16 of 2) [code = SHINGLES VACCINES (1 of 2)] Future Scheduled 2022-12-13 BREAST CANCER [facility] Test 16:46:16 SCREENING [code = BREAST CANCER SCREENING] Future Scheduled 2022-12-13 Screening for [facility] Test 16:46:16 malignant neoplasm of colon (procedure) [code = 150084275] Future Scheduled 2022-12-13 Screening for [facility] Test 16:46:16 malignant neoplasm of colon (procedure) [code = 856330456] Future Scheduled 2022-12-13 HEPATITIS B VACCINES Met [facility] Test 16:46:16 (1 of 3 - Risk 3-dose series) [code = HEPATITIS B VACCINES (1 of 3 - Risk 3-dose series)] Future Scheduled 2022-12-13 COVID-19 VACCINE (3 - [facility] Test 16:46:16 Pfizer series) [code = COVID-19 VACCINE (3 - Pfizer series)] Future Scheduled 2022-12-13 65+ PNEUMOCOCCAL [facility] Test 16:46:16 VACCINE (4 - PPSV23 if available, else PCV20) [code = 65+ PNEUMOCOCCAL VACCINE (4 - PPSV23 if available, else PCV20)] Future Scheduled 2022-12-13 INFLUENZA VACCINE [facility] Test 16:46:16 [code = INFLUENZA VACCINE] Future Scheduled 2022-12-13 Screening for [facility] Test 16:46:16 malignant neoplasm of colon (procedure) [code = 722767806] Future Scheduled 2022-12-13 Screening [facility] Test 16:46:16 malignant neoplasm of colon (procedure) [code = 903071490] Future Scheduled 2022-12-13 Screening [facility] Test 16:46:16 malignant neoplasm of colon (procedure) [code = 155101034] Future Scheduled 2022-12-13 SHINGLES VACCINES (1 Met [facility] Test 16:46:16 of 2) [code = SHINGLES VACCINES (1 of 2)] Future Scheduled 2022-12-13 BREAST CANCER [facility] Test 16:46:16 SCREENING [code = BREAST CANCER SCREENING] Future Scheduled 2022-12-13 Screening [facility] Test 16:46:16 malignant neoplasm of colon (procedure) [code = 797176450] Future Scheduled 2022-12-13 Screening for [facility] Test 16:46:16 malignant neoplasm of colon (procedure) [code = 321730813] Future Scheduled 2022-12-13 HEPATITIS B VACCINES Met [facility] Test 16:46:16 (1 of 3 - Risk 3-dose series) [code = HEPATITIS B VACCINES (1 of 3 - Risk 3-dose series)] Future Scheduled 2022-12-13 COVID-19 VACCINE (3 - [facility] Test 16:46:16 Pfizer series) [code = COVID-19 VACCINE (3 - Pfizer series)] Future Scheduled 2022-12-13 65+ PNEUMOCOCCAL [facility] Test 16:46:16 VACCINE (4 - PPSV23 if available, else PCV20) [code = 65+ PNEUMOCOCCAL VACCINE (4 - PPSV23 if available, else PCV20)] Future Scheduled 2022-12-13 INFLUENZA VACCINE [facility] Test 16:46:16 [code = INFLUENZA VACCINE] Future Scheduled 2022-11-11 Screening [facility] Test 09:27:47 malignant neoplasm of colon (procedure) [code = 960943996] Future Scheduled 2022-11-11 Screening [facility] Test 09:27:47 malignant neoplasm of colon (procedure) [code = 252857409] Future Scheduled 2022-11-11 Screening [facility] Test 09:27:47 malignant neoplasm of colon (procedure) [code = 847809106] Future Scheduled 2022-11-11 SHINGLES VACCINES (1 Met [facility] Test 09:27:47 of 2) [code = SHINGLES VACCINES (1 of 2)] Future Scheduled 2022-11-11 BREAST CANCER [facility] Test 09:27:47 SCREENING [code = BREAST CANCER SCREENING] Future Scheduled 2022-11-11 Screening for [facility] Test 09:27:47 malignant neoplasm of colon (procedure) [code = 058944858] Future Scheduled 2022-11-11 Screening for [facility] Test 09:27:47 malignant neoplasm of colon (procedure) [code = 884970481] Future Scheduled 2022-11-11 HEPATITIS B VACCINES Met [facility] Test 09:27:47 (1 of 3 - Risk 3-dose series) [code = HEPATITIS B VACCINES (1 of 3 - Risk 3-dose series)] Future Scheduled 2022-11-11 COVID-19 VACCINE (3 - [facility] Test 09:27:47 Pfizer series) [code = COVID-19 VACCINE (3 - Pfizer series)] Future Scheduled 2022-11-11 65+ PNEUMOCOCCAL [facility] Test 09:27:47 VACCINE (4 - PPSV23 if available, else PCV20) [code = 65+ PNEUMOCOCCAL VACCINE (4 - PPSV23 if available, else PCV20)] Future Scheduled 2022-11-11 INFLUENZA VACCINE [facility] Test 09:27:47 [code = INFLUENZA VACCINE] Future Scheduled 2022-11-11 Screening for [facility] Test 09:27:47 malignant neoplasm of colon (procedure) [code = 009128875] Future Scheduled 2022-11-11 Screening for [facility] Test 09:27:47 malignant neoplasm of colon (procedure) [code = 365226459] Future Scheduled 2022-11-11 Screening for [facility] Test 09:27:47 malignant neoplasm of colon (procedure) [code = 829093422] Future Scheduled 2022-11-11 SHINGLES VACCINES (1 Met [facility] Test 09:27:47 of 2) [code = SHINGLES VACCINES (1 of 2)] Future Scheduled 2022-11-11 BREAST CANCER [facility] Test 09:27:47 SCREENING [code = BREAST CANCER SCREENING] Future Scheduled 2022-11-11 Screening for [facility] Test 09:27:47 malignant neoplasm of colon (procedure) [code = 236980869] Future Scheduled 2022-11-11 Screening for [facility] Test 09:27:47 malignant neoplasm of colon (procedure) [code = 825954259] Future Scheduled 2022-11-11 HEPATITIS B VACCINES Met [facility] Test 09:27:47 (1 of 3 - Risk 3-dose series) [code = HEPATITIS B VACCINES (1 of 3 - Risk 3-dose series)] Future Scheduled 2022-11-11 COVID-19 VACCINE (3 - [facility] Test 09:27:47 Pfizer series) [code = COVID-19 VACCINE (3 - Pfizer series)] Future Scheduled 2022-11-11 65+ PNEUMOCOCCAL [facility] Test 09:27:47 VACCINE (4 - PPSV23 if available, else PCV20) [code = 65+ PNEUMOCOCCAL VACCINE (4 - PPSV23 if available, else PCV20)] Future Scheduled 2022-11-11 INFLUENZA VACCINE [facility] Test 09:27:47 [code = INFLUENZA VACCINE] Future Scheduled 2022-11-11 Screening for [facility] Test 09:27:47 malignant neoplasm of colon (procedure) [code = 207972662] Future Scheduled 2022-11-11 Screening for [facility] Test 09:27:47 malignant neoplasm of colon (procedure) [code = 090521994] Future Scheduled 2022-11-11 Screening for [facility] Test 09:27:47 malignant neoplasm of colon (procedure) [code = 331038631] Future Scheduled 2022-11-11 SHINGLES VACCINES (1 Met [facility] Test 09:27:47 of 2) [code = SHINGLES VACCINES (1 of 2)] Future Scheduled 2022-11-11 BREAST CANCER [facility] Test 09:27:47 SCREENING [code = BREAST CANCER SCREENING] Future Scheduled 2022-11-11 Screening for [facility] Test 09:27:47 malignant neoplasm of colon (procedure) [code = 179553744] Future Scheduled 2022-11-11 Screening for [facility] Test 09:27:47 malignant neoplasm of colon (procedure) [code = 140030706] Future Scheduled 2022-11-11 HEPATITIS B VACCINES Met [facility] Test 09:27:47 (1 of 3 - Risk 3-dose series) [code = HEPATITIS B VACCINES (1 of 3 - Risk 3-dose series)] Future Scheduled 2022-11-11 COVID-19 VACCINE (3 - [facility] Test 09:27:47 Pfizer series) [code = COVID-19 VACCINE (3 - Pfizer series)] Future Scheduled 2022-11-11 65+ PNEUMOCOCCAL [facility] Test 09:27:47 VACCINE (4 - PPSV23 if available, else PCV20) [code = 65+ PNEUMOCOCCAL VACCINE (4 - PPSV23 if available, else PCV20)] Future Scheduled 2022-11-11 INFLUENZA VACCINE [facility] Test 09:27:47 [code = INFLUENZA VACCINE] Future Scheduled 2022-10-27 Screening for [facility] Test 22:40:19 malignant neoplasm of colon (procedure) [code = 497869264] Future Scheduled 2022-10-27 Screening for [facility] Test 22:40:19 malignant neoplasm of colon (procedure) [code = 837117209] Future Scheduled 2022-10-27 Screening for [facility] Test 22:40:19 malignant neoplasm of colon (procedure) [code = 335453916] Future Scheduled 2022-10-27 SHINGLES VACCINES (1 Met [facility] Test 22:40:19 of 2) [code = SHINGLES VACCINES (1 of 2)] Future Scheduled 2022-10-27 BREAST CANCER [facility] Test 22:40:19 SCREENING [code = BREAST CANCER SCREENING] Future Scheduled 2022-10-27 Screening for [facility] Test 22:40:19 malignant neoplasm of colon (procedure) [code = 611471494] Future Scheduled 2022-10-27 Screening for [facility] Test 22:40:19 malignant neoplasm of colon (procedure) [code = 325037012] Future Scheduled 2022-10-27 HEPATITIS B VACCINES Met [facility] Test 22:40:19 (1 of 3 - Risk 3-dose series) [code = HEPATITIS B VACCINES (1 of 3 - Risk 3-dose series)] Future Scheduled 2022-10-27 COVID-19 VACCINE (3 - [facility] Test 22:40:19 Pfizer series) [code = COVID-19 VACCINE (3 - Pfizer series)] Future Scheduled 2022-10-27 65+ PNEUMOCOCCAL [facility] Test 22:40:19 VACCINE (4 - PPSV23 if available, else PCV20) [code = 65+ PNEUMOCOCCAL VACCINE (4 - PPSV23 if available, else PCV20)] Future Scheduled 2022-10-27 INFLUENZA VACCINE [facility] Test 22:40:19 [code = INFLUENZA VACCINE] Future Scheduled 2022-10-27 Screening for [facility] Test 22:40:19 malignant neoplasm of colon (procedure) [code = 560124688] Future Scheduled 2022-10-27 Screening for [facility] Test 22:40:19 malignant neoplasm of colon (procedure) [code = 863946888] Future Scheduled 2022-10-27 Screening for [facility] Test 22:40:19 malignant neoplasm of colon (procedure) [code = 421610451] Future Scheduled 2022-10-27 SHINGLES VACCINES (1 Met [facility] Test 22:40:19 of 2) [code = SHINGLES VACCINES (1 of 2)] Future Scheduled 2022-10-27 BREAST CANCER [facility] Test 22:40:19 SCREENING [code = BREAST CANCER SCREENING] Future Scheduled 2022-10-27 Screening for [facility] Test 22:40:19 malignant neoplasm of colon (procedure) [code = 490701314] Future Scheduled 2022-10-27 Screening for [facility] Test 22:40:19 malignant neoplasm of colon (procedure) [code = 759039379] Future Scheduled 2022-10-27 HEPATITIS B VACCINES Met [facility] Test 22:40:19 (1 of 3 - Risk 3-dose series) [code = HEPATITIS B VACCINES (1 of 3 - Risk 3-dose series)] Future Scheduled 2022-10-27 COVID-19 VACCINE (3 - [facility] Test 22:40:19 Pfizer series) [code = COVID-19 VACCINE (3 - Pfizer series)] Future Scheduled 2022-10-27 65+ [facility]CCAL [facility] Test 22:40:19 VACCINE (4 - PPSV23 if available, else PCV20) [code = 65+ PNEUMOCOCCAL VACCINE (4 - PPSV23 if available, else PCV20)] Future Scheduled 2022-10-27 INFLUENZA VACCINE [facility] Test 22:40:19 [code = INFLUENZA VACCINE] Future Scheduled 2022-09-10 SHINGLES VACCINES (1 Met [facility] Test 15:06:53 of 2) [code = SHINGLES VACCINES (1 of 2)] Future Scheduled 2022-09-10 BREAST CANCER [facility] Test 15:06:53 SCREENING [code = BREAST CANCER SCREENING] Future Scheduled 2022-09-10 COLONOSCOPY SCREENING [facility] Test 15:06:53 [code = COLONOSCOPY SCREENING] Future Scheduled 2022-09-10 HEPATITIS B VACCINES Met [facility] Test 15:06:53 (1 of 3 - Risk 3-dose series) [code = HEPATITIS B VACCINES (1 of 3 - Risk 3-dose series)] Future Scheduled 2022-09-10 COVID-19 VACCINE (3 - [facility] Test 15:06:53 Booster for Pfizer series) [code = COVID-19 VACCINE (3 - Booster for Pfizer series)] Future Scheduled 2022-09-10 65+ PNEUMOCOCCAL [facility] Test 15:06:53 VACCINE (4 - PPSV23 if available, else PCV20) [code = 65+ PNEUMOCOCCAL VACCINE (4 - PPSV23 if available, else PCV20)] Future Scheduled 2022-09-10 INFLUENZA VACCINE [facility] Test 15:06:53 [code = INFLUENZA VACCINE] Future Scheduled 2022-09-10 SHINGLES VACCINES (1 Met [facility] Test 15:06:53 of 2) [code = SHINGLES VACCINES (1 of 2)] Future Scheduled 2022-09-10 BREAST CANCER [facility] Test 15:06:53 SCREENING [code = BREAST CANCER SCREENING] Future Scheduled 2022-09-10 COLONOSCOPY SCREENING [facility] Test 15:06:53 [code = COLONOSCOPY SCREENING] Future Scheduled 2022-09-10 HEPATITIS B VACCINES Met [facility] Test 15:06:53 (1 of 3 - Risk 3-dose series) [code = HEPATITIS B VACCINES (1 of 3 - Risk 3-dose series)] Future Scheduled 2022-09-10 COVID-19 VACCINE (3 - [facility] Test 15:06:53 Booster for Pfizer series) [code = COVID-19 VACCINE (3 - Booster for Pfizer series)] Future Scheduled 2022-09-10 65+ [facility] VACCINE (4 - PPSV23 if available, else PCV20) [code = 65+ PNEUMOCOCCAL VACCINE (4 - PPSV23 if available, else PCV20)] Future Scheduled 2022-09-10 INFLUENZA VACCINE Method [facility] Test 15:06:53 [code = INFLUENZA VACCINE] Future Scheduled 2022-09-10 SHINGLES VACCINES (1 Met [facility] Test 15:06:53 of 2) [code = SHINGLES VACCINES (1 of 2)] Future Scheduled 2022-09-10 BREAST CANCER [facility] Test 15:06:53 SCREENING [code = BREAST CANCER SCREENING] Future Scheduled 2022-09-10 COLONOSCOPY SCREENING [facility] Test 15:06:53 [code = COLONOSCOPY SCREENING] Future Scheduled 2022-09-10 HEPATITIS B VACCINES [facility] Test 15:06:53 (1 of 3 - Risk 3-dose series) [code = HEPATITIS B VACCINES (1 of 3 - Risk 3-dose series)] Future Scheduled 2022-09-10 COVID-19 VACCINE (3 - [facility] Test 15:06:53 Booster for Pfizer series) [code = COVID-19 VACCINE (3 - Booster for Pfizer series)] Future Scheduled 2022-09-10 65+ PNEUMOCOCCAL [facility] Test 15:06:53 VACCINE (4 - PPSV23 if available, else PCV20) [code = 65+ PNEUMOCOCCAL VACCINE (4 - PPSV23 if available, else PCV20)] Future Scheduled 2022-09-10 INFLUENZA VACCINE Method [facility] Test 15:06:53 [code = INFLUENZA VACCINE] Future Scheduled 2022-09-10 SHINGLES VACCINES (1 Met [facility] Test 15:06:53 of 2) [code = SHINGLES VACCINES (1 of 2)] Future Scheduled 2022-09-10 BREAST CANCER [facility] Test 15:06:53 SCREENING [code = BREAST CANCER SCREENING] Future Scheduled 2022-09-10 COLONOSCOPY SCREENING [facility] Test 15:06:53 [code = COLONOSCOPY SCREENING] Future Scheduled 2022-09-10 HEPATITIS B VACCINES Met [facility] Test 15:06:53 (1 of 3 - Risk 3-dose series) [code = HEPATITIS B VACCINES (1 of 3 - Risk 3-dose series)] Future Scheduled 2022-09-10 COVID-19 VACCINE (3 - [facility] Test 15:06:53 Booster for Pfizer series) [code = COVID-19 VACCINE (3 - Booster for Pfizer series)] Future Scheduled 2022-09-10 65[facility] VACCINE (4 - PPSV23 if available, else PCV20) [code = 65+ PNEUMOCOCCAL VACCINE (4 - PPSV23 if available, else PCV20)] Future Scheduled 2022-09-10 INFLUENZA VACCINE Method [facility] Test 15:06:53 [code = INFLUENZA VACCINE] Future Scheduled 2022-09-10 SHINGLES VACCINES (1 Met [facility] Test 15:06:53 of 2) [code = SHINGLES VACCINES (1 of 2)] Future Scheduled 2022-09-10 BREAST CANCER [facility] Test 15:06:53 SCREENING [code = BREAST CANCER SCREENING] Future Scheduled 2022-09-10 COLONOSCOPY SCREENING [facility] Test 15:06:53 [code = COLONOSCOPY SCREENING] Future Scheduled 2022-09-10 HEPATITIS B VACCINES Met [facility] Test 15:06:53 (1 of 3 - Risk 3-dose series) [code = HEPATITIS B VACCINES (1 of 3 - Risk 3-dose series)] Future Scheduled 2022-09-10 COVID-19 VACCINE (3 - [facility] Test 15:06:53 Booster for Pfizer series) [code = COVID-19 VACCINE (3 - Booster for Pfizer series)] Future Scheduled 2022-09-10 65+ PNEUMOCOCCAL [facility] Test 15:06:53 VACCINE (4 - PPSV23 if available, else PCV20) [code = 65+ PNEUMOCOCCAL VACCINE (4 - PPSV23 if available, else PCV20)] Future Scheduled 2022-09-10 INFLUENZA VACCINE Method [facility] Test 15:06:53 [code = INFLUENZA VACCINE] Future Scheduled 2022-09-10 SHINGLES VACCINES (1 Met [facility] Test 15:06:53 of 2) [code = SHINGLES VACCINES (1 of 2)] Future Scheduled 2022-09-10 BREAST CANCER [facility] Test 15:06:53 SCREENING [code = BREAST CANCER SCREENING] Future Scheduled 2022-09-10 COLONOSCOPY SCREENING [facility] Test 15:06:53 [code = COLONOSCOPY SCREENING] Future Scheduled 2022-09-10 HEPATITIS B VACCINES Met [facility] Test 15:06:53 (1 of 3 - Risk 3-dose series) [code = HEPATITIS B VACCINES (1 of 3 - Risk 3-dose series)] Future Scheduled 2022-09-10 COVID-19 VACCINE (3 - [facility] Test 15:06:53 Booster for Pfizer series) [code = COVID-19 VACCINE (3 - Booster for Pfizer series)] Future Scheduled 2022-09-10 65[facility] 15:06:[facility] VACCINE (4 - PPSV23 if available, else PCV20) [code = 65+ PNEUMOCOCCAL VACCINE (4 - PPSV23 if available, else PCV20)] Future Scheduled 2022-09-10 INFLUENZA VACCINE Method [facility] Test 15:06:53 [code = INFLUENZA VACCINE] Future Scheduled 2022-09-10 SHINGLES VACCINES (1 Met [facility] Test 15:06:53 of 2) [code = SHINGLES VACCINES (1 of 2)] Future Scheduled 2022-09-10 BREAST CANCER [facility] Test 15:06:53 SCREENING [code = BREAST CANCER SCREENING] Future Scheduled 2022-09-10 COLONOSCOPY SCREENING [facility] Test 15:06:53 [code = COLONOSCOPY SCREENING] Future Scheduled 2022-09-10 HEPATITIS B VACCINES Met [facility] Test 15:06:53 (1 of 3 - Risk 3-dose series) [code = HEPATITIS B VACCINES (1 of 3 - Risk 3-dose series)] Future Scheduled 2022-09-10 COVID-19 VACCINE (3 - [facility] Test 15:06:53 Booster for Pfizer series) [code = COVID-19 VACCINE (3 - Booster for Pfizer series)] Future Scheduled 2022-09-10 65+ [facility] 15:06:53 VACCINE (4 - PPSV23 if available, else PCV20) [code = 65+ PNEUMOCOCCAL VACCINE (4 - PPSV23 if available, else PCV20)] Future Scheduled 2022-09-10 INFLUENZA VACCINE Method [facility] Test 15:06:53 [code = INFLUENZA VACCINE] Future Scheduled 2022-09-10 SHINGLES VACCINES (1 Met [facility] Test 15:06:53 of 2) [code = SHINGLES VACCINES (1 of 2)] Future Scheduled 2022-09-10 BREAST CANCER [facility] Test 15:06:53 SCREENING [code = BREAST CANCER SCREENING] Future Scheduled 2022-09-10 COLONOSCOPY SCREENING [facility] Test 15:06:53 [code = COLONOSCOPY SCREENING] Future Scheduled 2022-09-10 HEPATITIS B VACCINES Met [facility] Test 15:06:53 (1 of 3 - Risk 3-dose series) [code = HEPATITIS B VACCINES (1 of 3 - Risk 3-dose series)] Future Scheduled 2022-09-10 COVID-19 VACCINE (3 - [facility] Test 15:06:53 Booster for Pfizer series) [code = COVID-19 VACCINE (3 - Booster for Pfizer series)] Future Scheduled 2022-09-10 65+ PNEUMOCOCCAL [facility] Test 15:06:53 VACCINE (4 - PPSV23 if available, else PCV20) [code = 65+ PNEUMOCOCCAL VACCINE (4 - PPSV23 if available, else PCV20)] Future Scheduled 2022-09-10 INFLUENZA VACCINE [facility] Test 15:06:53 [code = INFLUENZA VACCINE] Future Scheduled 2022-08-26 SHINGLES VACCINES (1 Met [facility] Test 14:43:48 of 2) [code = SHINGLES VACCINES (1 of 2)] Future Scheduled 2022-08-26 BREAST CANCER [facility] Test 14:43:48 SCREENING [code = BREAST CANCER SCREENING] Future Scheduled 2022-08-26 COLONOSCOPY SCREENING [facility] Test 14:43:48 [code = COLONOSCOPY SCREENING] Future Scheduled 2022-08-26 HEPATITIS B VACCINES Met [facility] Test 14:43:48 (1 of 3 - Risk 3-dose series) [code = HEPATITIS B VACCINES (1 of 3 - Risk 3-dose series)] Future Scheduled 2022-08-26 COVID-19 VACCINE (3 - [facility] Test 14:43:48 Booster for Pfizer series) [code = COVID-19 VACCINE (3 - Booster for Pfizer series)] Future Scheduled 2022-08-26 65[facility] 14:43:48 VACCINE (4 - PPSV23 if available, else PCV20) [code = 65+ PNEUMOCOCCAL VACCINE (4 - PPSV23 if available, else PCV20)] Future Scheduled 2022-08-26 INFLUENZA VACCINE Method [facility] Test 14:43:48 [code = INFLUENZA VACCINE] Future Scheduled 2022-08-07 SHINGLES VACCINES (1 Met [facility] Test 23:30:11 of 2) [code = SHINGLES VACCINES (1 of 2)] Future Scheduled 2022-08-07 BREAST CANCER [facility] Test 23:30:11 SCREENING [code = BREAST CANCER SCREENING] Future Scheduled 2022-08-07 COLONOSCOPY SCREENING [facility] Test 23:30:11 [code = COLONOSCOPY SCREENING] Future Scheduled 2022-08-07 HEPATITIS B VACCINES Met [facility] Test 23:30:11 (1 of 3 - Risk 3-dose series) [code = HEPATITIS B VACCINES (1 of 3 - Risk 3-dose series)] Future Scheduled 2022-08-07 COVID-19 VACCINE (3 - [facility] Test 23:30:11 Booster for Pfizer series) [code = COVID-19 VACCINE (3 - Booster for Pfizer series)] Future Scheduled 2022-08-07 65[facility] 23:30:11 VACCINE (4 - PPSV23 if available, else PCV20) [code = 65+ PNEUMOCOCCAL VACCINE (4 - PPSV23 if available, else PCV20)] Future Scheduled 2022-08-07 INFLUENZA VACCINE Method [facility] Test 23:30:11 [code = INFLUENZA VACCINE] Future Scheduled 2022-08-07 SHINGLES VACCINES (1 Met [facility] Test 23:30:11 of 2) [code = SHINGLES VACCINES (1 of 2)] Future Scheduled 2022-08-07 BREAST CANCER [facility] Test 23:30:11 SCREENING [code = BREAST CANCER SCREENING] Future Scheduled 2022-08-07 COLONOSCOPY SCREENING [facility] Test 23:30:11 [code = COLONOSCOPY SCREENING] Future Scheduled 2022-08-07 HEPATITIS B VACCINES Met [facility] Test 23:30:11 (1 of 3 - Risk 3-dose series) [code = HEPATITIS B VACCINES (1 of 3 - Risk 3-dose series)] Future Scheduled 2022-08-07 COVID-19 VACCINE (3 - [facility] Test 23:30:11 Booster for Pfizer series) [code = COVID-19 VACCINE (3 - Booster for Pfizer series)] Future Scheduled 2022-08-07 65[facility] 23:30:11 VACCINE (4 - PPSV23 if available, else PCV20) [code = 65+ PNEUMOCOCCAL VACCINE (4 - PPSV23 if available, else PCV20)] Future Scheduled 2022-08-07 INFLUENZA VACCINE Method [facility] Test 23:30:11 [code = INFLUENZA VACCINE] Future Scheduled 2022-08-06 SHINGLES VACCINES (1 Met [facility] Test 15:48:02 of 2) [code = SHINGLES VACCINES (1 of 2)] Future Scheduled 2022-08-06 BREAST CANCER [facility] Test 15:48:02 SCREENING [code = BREAST CANCER SCREENING] Future Scheduled 2022-08-06 COLONOSCOPY SCREENING [facility] Test 15:48:02 [code = COLONOSCOPY SCREENING] Future Scheduled 2022-08-06 HEPATITIS B VACCINES Met [facility] Test 15:48:02 (1 of 3 - Risk 3-dose series) [code = HEPATITIS B VACCINES (1 of 3 - Risk 3-dose series)] Future Scheduled 2022-08-06 COVID-19 VACCINE (3 - [facility] Test 15:48:02 Booster for Pfizer series) [code = COVID-19 VACCINE (3 - Booster for Pfizer series)] Future Scheduled 2022-08-06 65[facility] 15:48:02 VACCINE (4 - PPSV23 if available, else PCV20) [code = 65+ PNEUMOCOCCAL VACCINE (4 - PPSV23 if available, else PCV20)] Future Scheduled 2022-08-06 INFLUENZA VACCINE Method [facility] Test 15:48:02 [code = INFLUENZA VACCINE] Future Scheduled 2022-06-11 SHINGLES VACCINES (1 Met [facility] Test 16:10:12 of 2) [code = SHINGLES VACCINES (1 of 2)] Future Scheduled 2022-06-11 BREAST CANCER [facility] Test 16:10:12 SCREENING [code = BREAST CANCER SCREENING] Future Scheduled 2022-06-11 COLONOSCOPY SCREENING [facility] Test 16:10:12 [code = COLONOSCOPY SCREENING] Future Scheduled 2022-06-11 HEPATITIS B VACCINES Met [facility] Test 16:10:12 (1 of 3 - Risk 3-dose series) [code = HEPATITIS B VACCINES (1 of 3 - Risk 3-dose series)] Future Scheduled 2022-06-11 COVID-19 VACCINE (3 - [facility] Test 16:10:12 Booster for Pfizer series) [code = COVID-19 VACCINE (3 - Booster for Pfizer series)] Future Scheduled 2022-06-11 65+ [facility] Test 16:10:12 VACCINE (4 - PPSV23 if available, else PCV20) [code = 65+ PNEUMOCOCCAL VACCINE (4 - PPSV23 if available, else PCV20)] Future Scheduled 2022-06-11 INFLUENZA VACCINE Method [facility] Test 16:10:12 [code = INFLUENZA VACCINE] Future Scheduled 2022-06-11 SHINGLES VACCINES (1 Met [facility] Test 16:10:12 of 2) [code = SHINGLES VACCINES (1 of 2)] Future Scheduled 2022-06-11 BREAST CANCER [facility] Test 16:10:12 SCREENING [code = BREAST CANCER SCREENING] Future Scheduled 2022-06-11 COLONOSCOPY SCREENING [facility] Test 16:10:12 [code = COLONOSCOPY SCREENING] Future Scheduled 2022-06-11 HEPATITIS B VACCINES Met [facility] Test 16:10:12 (1 of 3 - Risk 3-dose series) [code = HEPATITIS B VACCINES (1 of 3 - Risk 3-dose series)] Future Scheduled 2022-06-11 COVID-19 VACCINE (3 - [facility] Test 16:10:12 Booster for Pfizer series) [code = COVID-19 VACCINE (3 - Booster for Pfizer series)] Future Scheduled 2022-06-11 65+ [facility]AL [facility] Test 16:10:12 VACCINE (4 - PPSV23 if available, else PCV20) [code = 65+ PNEUMOCOCCAL VACCINE (4 - PPSV23 if available, else PCV20)] Future Scheduled 2022-06-11 INFLUENZA VACCINE Method [facility] Test 16:10:12 [code = INFLUENZA VACCINE] Future Scheduled 2022-06-11 SHINGLES VACCINES (1 Met [facility] Test 16:10:12 of 2) [code = SHINGLES VACCINES (1 of 2)] Future Scheduled 2022-06-11 BREAST CANCER [facility] Test 16:10:12 SCREENING [code = BREAST CANCER SCREENING] Future Scheduled 2022-06-11 COLONOSCOPY SCREENING [facility] Test 16:10:12 [code = COLONOSCOPY SCREENING] Future Scheduled 2022-06-11 HEPATITIS B VACCINES Met [facility] Test 16:10:12 (1 of 3 - Risk 3-dose series) [code = HEPATITIS B VACCINES (1 of 3 - Risk 3-dose series)] Future Scheduled 2022-06-11 COVID-19 VACCINE (3 - [facility] Test 16:10:12 Booster for Pfizer series) [code = COVID-19 VACCINE (3 - Booster for Pfizer series)] Future Scheduled 2022-06-11 65[facility] 16:10:12 VACCINE (4 - PPSV23 if available, else PCV20) [code = 65+ PNEUMOCOCCAL VACCINE (4 - PPSV23 if available, else PCV20)] Future Scheduled 2022-06-11 INFLUENZA VACCINE Method [facility] Test 16:10:12 [code = INFLUENZA VACCINE] Future Scheduled 2022-06-11 SHINGLES VACCINES (1 Met [facility] Test 16:10:12 of 2) [code = SHINGLES VACCINES (1 of 2)] Future Scheduled 2022-06-11 BREAST CANCER [facility] Test 16:10:12 SCREENING [code = BREAST CANCER SCREENING] Future Scheduled 2022-06-11 COLONOSCOPY SCREENING [facility] Test 16:10:12 [code = COLONOSCOPY SCREENING] Future Scheduled 2022-06-11 HEPATITIS B VACCINES Met [facility] Test 16:10:12 (1 of 3 - Risk 3-dose series) [code = HEPATITIS B VACCINES (1 of 3 - Risk 3-dose series)] Future Scheduled 2022-06-11 COVID-19 VACCINE (3 - [facility] Test 16:10:12 Booster for Pfizer series) [code = COVID-19 VACCINE (3 - Booster for Pfizer series)] Future Scheduled 2022-06-11 65[facility] 16:10:12 VACCINE (4 - PPSV23 if available, else PCV20) [code = 65+ PNEUMOCOCCAL VACCINE (4 - PPSV23 if available, else PCV20)] Future Scheduled 2022-06-11 INFLUENZA VACCINE [facility] Test 16:10:12 [code = INFLUENZA VACCINE] Future Scheduled 2022-06-11 SHINGLES VACCINES (1 Met [facility] Test 16:10:12 of 2) [code = SHINGLES VACCINES (1 of 2)] Future Scheduled 2022-06-11 BREAST CANCER [facility] Test 16:10:12 SCREENING [code = BREAST CANCER SCREENING] Future Scheduled 2022-06-11 COLONOSCOPY SCREENING [facility] Test 16:10:12 [code = COLONOSCOPY SCREENING] Future Scheduled 2022-06-11 HEPATITIS B VACCINES Met [facility] Test 16:10:12 (1 of 3 - Risk 3-dose series) [code = HEPATITIS B VACCINES (1 of 3 - Risk 3-dose series)] Future Scheduled 2022-06-11 COVID-19 VACCINE (3 - Me [facility] Test 16:10:12 Booster for Pfizer series) [code = COVID-19 VACCINE (3 - Booster for Pfizer series)] Future Scheduled 2022-06-11 65+ [facility]AL [facility] Test 16:10:12 VACCINE (4 - PPSV23 if available, else PCV20) [code = 65+ PNEUMOCOCCAL VACCINE (4 - PPSV23 if available, else PCV20)] Future Scheduled 2022-06-11 INFLUENZA VACCINE [facility] Test 16:10:12 [code = INFLUENZA VACCINE] Future Scheduled 2022-06-11 SHINGLES VACCINES (1 Met [facility] Test 16:10:12 of 2) [code = SHINGLES VACCINES (1 of 2)] Future Scheduled 2022-06-11 BREAST CANCER [facility] Test 16:10:12 SCREENING [code = BREAST CANCER SCREENING] Future Scheduled 2022-06-11 COLONOSCOPY SCREENING [facility] Test 16:10:12 [code = COLONOSCOPY SCREENING] Future Scheduled 2022-06-11 HEPATITIS B VACCINES Met [facility] Test 16:10:12 (1 of 3 - Risk 3-dose series) [code = HEPATITIS B VACCINES (1 of 3 - Risk 3-dose series)] Future Scheduled 2022-06-11 COVID-19 VACCINE (3 - [facility] Test 16:10:12 Booster for Pfizer series) [code = COVID-19 VACCINE (3 - Booster for Pfizer series)] Future Scheduled 2022-06-11 65+ [facility]CCAL [facility] Test 16:10:12 VACCINE (4 - PPSV23 if available, else PCV20) [code = 65+ PNEUMOCOCCAL VACCINE (4 - PPSV23 if available, else PCV20)] Future Scheduled 2022-06-11 INFLUENZA VACCINE [facility] Test 16:10:12 [code = INFLUENZA VACCINE] Future Scheduled 2022-06-11 SHINGLES VACCINES (1 Met [facility] Test 16:10:12 of 2) [code = SHINGLES VACCINES (1 of 2)] Future Scheduled 2022-06-11 BREAST CANCER [facility] Test 16:10:12 SCREENING [code = BREAST CANCER SCREENING] Future Scheduled 2022-06-11 COLONOSCOPY SCREENING [facility] Test 16:10:12 [code = COLONOSCOPY SCREENING] Future Scheduled 2022-06-11 HEPATITIS B VACCINES Met [facility] Test 16:10:12 (1 of 3 - Risk 3-dose series) [code = HEPATITIS B VACCINES (1 of 3 - Risk 3-dose series)] Future Scheduled 2022-06-11 COVID-19 VACCINE (3 - Me [facility] Test 16:10:12 Booster for Pfizer [...] Future Scheduled 2022-06-11 SHINGLES VACCINES (1 Met [facility] Test 16:10:12 of 2) [code = SHINGLES VACCINES (1 of 2)] Future Scheduled 2022-06-11 BREAST CANCER [facility] Test 16:10:12 SCREENING [code = BREAST CANCER SCREENING] Future Scheduled 2022-06-11 COLONOSCOPY SCREENING [facility] Test 16:10:12 [code = COLONOSCOPY SCREENING] Future Scheduled 2022-06-11 HEPATITIS B VACCINES Met [facility] Test 16:10:12 (1 of 3 - Risk 3-dose series) [code = HEPATITIS B VACCINES (1 of 3 - Risk 3-dose series)] Future Scheduled 2022-06-11 COVID-19 VACCINE (3 - Me [facility] Test 16:10:12 Booster for Pfizer [...] Future Scheduled 2022-06-11 SHINGLES VACCINES (1 Met [facility] Test 16:10:12 of 2) [code = SHINGLES VACCINES (1 of 2)] Future Scheduled 2022-06-11 BREAST CANCER [facility] Test 16:10:12 SCREENING [code = BREAST CANCER SCREENING] Future Scheduled 2022-06-11 COLONOSCOPY SCREENING [facility] Test 16:10:12 [code = COLONOSCOPY SCREENING] Future Scheduled 2022-06-11 HEPATITIS B VACCINES Met [facility] Test 16:10:12 (1 of 3 - Risk 3-dose series) [code = HEPATITIS B VACCINES (1 of 3 - Risk 3-dose series)] Future Scheduled 2022-06-11 COVID-19 VACCINE (3 - [facility] Test 16:10:12 Booster for Pfizer series) [code = COVID-19 VACCINE (3 - Booster for Pfizer series)] Future Scheduled 2022-06-11 65+ PNEUMOCOCCAL [facility] Test 16:10:12 VACCINE (4 - PPSV23 if available, else PCV20) [code = 65+ PNEUMOCOCCAL VACCINE (4 - PPSV23 if available, else PCV20)] Future Scheduled 2022-06-11 INFLUENZA VACCINE [facility] Test 16:10:12 [code = INFLUENZA VACCINE] Future Scheduled 2022-05-10 SHINGLES VACCINES (1 Met [facility] Test 10:21:35 of 2) [code = SHINGLES VACCINES (1 of 2)] Future Scheduled 2022-05-10 BREAST CANCER [facility] Test 10:21:35 SCREENING [code = BREAST CANCER SCREENING] Future Scheduled 2022-05-10 COLONOSCOPY SCREENING [facility] Test 10:21:35 [code = COLONOSCOPY SCREENING] Future Scheduled 2022-05-10 HEPATITIS B VACCINES Met [facility] Test 10:21:35 (1 of 3 - Risk 3-dose series) [code = HEPATITIS B VACCINES (1 of 3 - Risk 3-dose series)] Future Scheduled 2022-05-10 COVID-19 VACCINE (3 - [facility] Test 10:21:35 Booster for Pfizer series) [code = COVID-19 VACCINE (3 - Booster for Pfizer series)] Future Scheduled 2022-05-10 65[facility] 10:21:35 VACCINE (4 - PPSV23 if available, else PCV20) [code = 65+ PNEUMOCOCCAL VACCINE (4 - PPSV23 if available, else PCV20)] Future Scheduled 2022-05-10 INFLUENZA VACCINE Method [facility] Test 10:21:35 [code = INFLUENZA VACCINE] Future Scheduled 2022-05-10 SHINGLES VACCINES (1 Met [facility] Test 10:21:35 of 2) [code = SHINGLES VACCINES (1 of 2)] Future Scheduled 2022-05-10 BREAST CANCER [facility] Test 10:21:35 SCREENING [code = BREAST CANCER SCREENING] Future Scheduled 2022-05-10 COLONOSCOPY SCREENING [facility] Test 10:21:35 [code = COLONOSCOPY SCREENING] Future Scheduled 2022-05-10 HEPATITIS B VACCINES Met [facility] Test 10:21:35 (1 of 3 - Risk 3-dose series) [code = HEPATITIS B VACCINES (1 of 3 - Risk 3-dose series)] Future Scheduled 2022-05-10 COVID-19 VACCINE (3 - [facility] Test 10:21:35 Booster for Pfizer series) [code = COVID-19 VACCINE (3 - Booster for Pfizer series)] Future Scheduled 2022-05-10 65+ PNEUMOCOCCAL [facility] Test 10:21:35 VACCINE (4 - PPSV23 if available, else PCV20) [code = 65+ PNEUMOCOCCAL VACCINE (4 - PPSV23 if available, else PCV20)] Future Scheduled 2022-05-10 INFLUENZA VACCINE Method [facility] Test 10:21:35 [code = INFLUENZA VACCINE] Future Scheduled 2022-05-06 SHINGLES VACCINES (1 Met [facility] Test 14:03:13 of 2) [code = SHINGLES VACCINES (1 of 2)] Future Scheduled 2022-05-06 BREAST CANCER [facility] Test 14:03:13 SCREENING [code = BREAST CANCER SCREENING] Future Scheduled 2022-05-06 COLONOSCOPY SCREENING [facility] Test 14:03:13 [code = COLONOSCOPY SCREENING] Future Scheduled 2022-05-06 HEPATITIS B VACCINES Met [facility] Test 14:03:13 (1 of 3 - Risk 3-dose series) [code = HEPATITIS B VACCINES (1 of 3 - Risk 3-dose series)] Future Scheduled 2022-05-06 COVID-19 VACCINE (3 - Me [facility] Test 14:03:13 Booster for Pfizer series) [code = COVID-19 VACCINE (3 - Booster for Pfizer series)] Future Scheduled 2022-05-06 65[facility] 14:03:13 VACCINE (4 - PPSV23 if available, else PCV20) [code = 65+ PNEUMOCOCCAL VACCINE (4 - PPSV23 if available, else PCV20)] Future Scheduled 2022-05-06 INFLUENZA VACCINE Method [facility] Test 14:03:13 [code = INFLUENZA VACCINE] Future Scheduled 2022-04-30 SHINGLES VACCINES (1 Met [facility] Test 01:07:32 of 2) [code = SHINGLES VACCINES (1 of 2)] Future Scheduled 2022-04-30 BREAST CANCER [facility] Test 01:07:32 SCREENING [code = BREAST CANCER SCREENING] Future Scheduled 2022-04-30 COLONOSCOPY SCREENING [facility] Test 01:07:32 [code = COLONOSCOPY SCREENING] Future Scheduled 2022-04-30 HEPATITIS B VACCINES Met [facility] Test 01:07:32 (1 of 3 - Risk 3-dose series) [code = HEPATITIS B VACCINES (1 of 3 - Risk 3-dose series)] Future Scheduled 2022-04-30 COVID-19 VACCINE (3 - [facility] Test 01:07:32 Booster for Pfizer series) [code = COVID-19 VACCINE (3 - Booster for Pfizer series)] Future Scheduled 2022-04-30 65+ PNEUMOCOCCAL [facility] Test 01:07:32 VACCINE (4 - PPSV23 if available, else PCV20) [code = 65+ PNEUMOCOCCAL VACCINE (4 - PPSV23 if available, else PCV20)] Future Scheduled 2022-04-30 INFLUENZA VACCINE Method [facility] Test 01:07:32 [code = INFLUENZA VACCINE] Future Scheduled 2022-04-30 SHINGLES VACCINES (1 Met [facility] Test 01:07:32 of 2) [code = SHINGLES VACCINES (1 of 2)] Future Scheduled 2022-04-30 BREAST CANCER [facility] Test 01:07:32 SCREENING [code = BREAST CANCER SCREENING] Future Scheduled 2022-04-30 COLONOSCOPY SCREENING [facility] Test 01:07:32 [code = COLONOSCOPY SCREENING] Future Scheduled 2022-04-30 HEPATITIS B VACCINES Met [facility] Test 01:07:32 (1 of 3 - Risk 3-dose series) [code = HEPATITIS B VACCINES (1 of 3 - Risk 3-dose series)] Future Scheduled 2022-04-30 COVID-19 VACCINE (3 - [facility] Test 01:07:32 Booster for Pfizer series) [code = COVID-19 VACCINE (3 - Booster for Pfizer series)] Future Scheduled 2022-04-30 65[facility] VACCINE (4 - PPSV23 if available, else PCV20) [code = 65+ PNEUMOCOCCAL VACCINE (4 - PPSV23 if available, else PCV20)] Future Scheduled 2022-04-30 INFLUENZA VACCINE Method [facility] Test 01:07:32 [code = INFLUENZA VACCINE] Future Scheduled 2022-04-30 SHINGLES VACCINES (1 Met [facility] Test 01:07:32 of 2) [code = SHINGLES VACCINES (1 of 2)] Future Scheduled 2022-04-30 BREAST CANCER [facility] Test 01:07:32 SCREENING [code = BREAST CANCER SCREENING] Future Scheduled 2022-04-30 COLONOSCOPY SCREENING [facility] Test 01:07:32 [code = COLONOSCOPY SCREENING] Future Scheduled 2022-04-30 HEPATITIS B VACCINES Met [facility] Test 01:07:32 (1 of 3 - Risk 3-dose series) [code = HEPATITIS B VACCINES (1 of 3 - Risk 3-dose series)] Future Scheduled 2022-04-30 COVID-19 VACCINE (3 - [facility] Test 01:07:32 Booster for Pfizer series) [code = COVID-19 VACCINE (3 - Booster for Pfizer series)] Future Scheduled 2022-04-30 65+ PNEUMOCOCCAL [facility] Test 01:07:32 VACCINE (4 - PPSV23 if available, else PCV20) [code = 65+ PNEUMOCOCCAL VACCINE (4 - PPSV23 if available, else PCV20)] Future Scheduled 2022-04-30 INFLUENZA VACCINE Method [facility] Test 01:07:32 [code = INFLUENZA VACCINE] Future Scheduled 2022-04-25 SHINGLES VACCINES (1 Met [facility] Test 01:45:02 of 2) [code = SHINGLES VACCINES (1 of 2)] Future Scheduled 2022-04-25 BREAST CANCER [facility] Test 01:45:02 SCREENING [code = BREAST CANCER SCREENING] Future Scheduled 2022-04-25 COLONOSCOPY SCREENING [facility] Test 01:45:02 [code = COLONOSCOPY SCREENING] Future Scheduled 2022-04-25 HEPATITIS B VACCINES Met [facility] Test 01:45:02 (1 of 3 - Risk 3-dose series) [code = HEPATITIS B VACCINES (1 of 3 - Risk 3-dose series)] Future Scheduled 2022-04-25 COVID-19 VACCINE (3 - [facility] Test 01:45:02 Booster for Pfizer series) [code = COVID-19 VACCINE (3 - Booster for Pfizer series)] Future Scheduled 2022-04-25 65+ PNEUMOCOCCAL [facility] Test 01:45:02 VACCINE (4 - PPSV23 if available, else PCV20) [code = 65+ PNEUMOCOCCAL VACCINE (4 - PPSV23 if available, else PCV20)] Future Scheduled 2022-04-25 INFLUENZA VACCINE Method [facility] Test 01:45:02 [code = INFLUENZA VACCINE] Future Scheduled 2022-03-25 SHINGLES VACCINES (1 Met [facility] Test 14:48:42 of 2) [code = SHINGLES VACCINES (1 of 2)] Future Scheduled 2022-03-25 BREAST CANCER [facility] Test 14:48:42 SCREENING [code = BREAST CANCER SCREENING] Future Scheduled 2022-03-25 COLONOSCOPY SCREENING [facility] Test 14:48:42 [code = COLONOSCOPY SCREENING] Future Scheduled 2022-03-25 HEPATITIS B VACCINES Met [facility] Test 14:48:42 (1 of 3 - Risk 3-dose series) [code = HEPATITIS B VACCINES (1 of 3 - Risk 3-dose series)] Future Scheduled 2022-03-25 COVID-19 VACCINE (3 - [facility] Test 14:48:42 Booster for Pfizer series) [code = COVID-19 VACCINE (3 - Booster for Pfizer series)] Future Scheduled 2022-03-25 65[facility] 14:48:42 VACCINE (4 - PPSV23 if available, else PCV20) [code = 65+ PNEUMOCOCCAL VACCINE (4 - PPSV23 if available, else PCV20)] Future Scheduled 2022-03-25 INFLUENZA VACCINE Method [facility] Test 14:48:42 [code = INFLUENZA VACCINE] Future Scheduled 2022-03-25 SHINGLES VACCINES (1 Met [facility] Test 14:48:42 of 2) [code = SHINGLES VACCINES (1 of 2)] Future Scheduled 2022-03-25 BREAST CANCER [facility] Test 14:48:42 SCREENING [code = BREAST CANCER SCREENING] Future Scheduled 2022-03-25 COLONOSCOPY SCREENING [facility] Test 14:48:42 [code = COLONOSCOPY SCREENING] Future Scheduled 2022-03-25 HEPATITIS B VACCINES Met [facility] Test 14:48:42 (1 of 3 - Risk 3-dose series) [code = HEPATITIS B VACCINES (1 of 3 - Risk 3-dose series)] Future Scheduled 2022-03-25 COVID-19 VACCINE (3 - Me [facility] Test 14:48:42 Booster for Pfizer series) [code = COVID-19 VACCINE (3 - Booster for Pfizer series)] Future Scheduled 2022-03-25 65[facility] 14:48:42 VACCINE (4 - PPSV23 if available, else PCV20) [code = 65+ PNEUMOCOCCAL VACCINE (4 - PPSV23 if available, else PCV20)] Future Scheduled 2022-03-25 INFLUENZA VACCINE Method [facility] Test 14:48:42 [code = INFLUENZA VACCINE] Future Scheduled 2022-03-25 SHINGLES VACCINES (1 Met [facility] Test 14:48:42 of 2) [code = SHINGLES VACCINES (1 of 2)] Future Scheduled 2022-03-25 BREAST CANCER [facility] Test 14:48:42 SCREENING [code = BREAST CANCER SCREENING] Future Scheduled 2022-03-25 COLONOSCOPY SCREENING [facility] Test 14:48:42 [code = COLONOSCOPY SCREENING] Future Scheduled 2022-03-25 HEPATITIS B VACCINES Met [facility] Test 14:48:42 (1 of 3 - Risk 3-dose series) [code = HEPATITIS B VACCINES (1 of 3 - Risk 3-dose series)] Future Scheduled 2022-03-25 COVID-19 VACCINE (3 - Me [facility] Test 14:48:42 Booster for Pfizer [...] Future Scheduled 2022-03-25 SHINGLES VACCINES (1 Met [facility] Test 14:48:42 of 2) [code = SHINGLES VACCINES (1 of 2)] Future Scheduled 2022-03-25 BREAST CANCER [facility] Test 14:48:42 SCREENING [code = BREAST CANCER SCREENING] Future Scheduled 2022-03-25 COLONOSCOPY SCREENING [facility] Test 14:48:42 [code = COLONOSCOPY SCREENING] Future Scheduled 2022-03-25 HEPATITIS B VACCINES Met [facility] Test 14:48:42 (1 of 3 - Risk 3-dose series) [code = HEPATITIS B VACCINES (1 of 3 - Risk 3-dose series)] Future Scheduled 2022-03-25 COVID-19 VACCINE (3 - [facility] Test 14:48:42 Booster for Pfizer series) [code = COVID-19 VACCINE (3 - Booster for Pfizer series)] Future Scheduled 2022-03-25 65+ [facility] 14:48:42 VACCINE (4 - PPSV23 if available, else PCV20) [code = 65+ PNEUMOCOCCAL VACCINE (4 - PPSV23 if available, else PCV20)] Future Scheduled 2022-03-25 INFLUENZA VACCINE Method [facility] Test 14:48:42 [code = INFLUENZA VACCINE] Future Scheduled 2022-03-25 SHINGLES VACCINES (1 Met [facility] Test 14:48:42 of 2) [code = SHINGLES VACCINES (1 of 2)] Future Scheduled 2022-03-25 BREAST CANCER [facility] Test 14:48:42 SCREENING [code = BREAST CANCER SCREENING] Future Scheduled 2022-03-25 COLONOSCOPY SCREENING [facility] Test 14:48:42 [code = COLONOSCOPY SCREENING] Future Scheduled 2022-03-25 HEPATITIS B VACCINES Met [facility] Test 14:48:42 (1 of 3 - Risk 3-dose series) [code = HEPATITIS B VACCINES (1 of 3 - Risk 3-dose series)] Future Scheduled 2022-03-25 COVID-19 VACCINE (3 - [facility] Test 14:48:42 Booster for Pfizer series) [code = COVID-19 VACCINE (3 - Booster for Pfizer series)] Future Scheduled 2022-03-25 65+ [facility] Test 14:48:42 VACCINE (4 - PPSV23 if available, else PCV20) [code = 65+ PNEUMOCOCCAL VACCINE (4 - PPSV23 if available, else PCV20)] Future Scheduled 2022-03-25 INFLUENZA VACCINE Method [facility] Test 14:48:42 [code = INFLUENZA VACCINE] Future Scheduled 2022-03-25 SHINGLES VACCINES (1 Met [facility] Test 14:48:42 of 2) [code = SHINGLES VACCINES (1 of 2)] Future Scheduled 2022-03-25 BREAST CANCER [facility] Test 14:48:42 SCREENING [code = BREAST CANCER SCREENING] Future Scheduled 2022-03-25 COLONOSCOPY SCREENING [facility] Test 14:48:42 [code = COLONOSCOPY SCREENING] Future Scheduled 2022-03-25 HEPATITIS B VACCINES Met [facility] Test 14:48:42 (1 of 3 - Risk 3-dose series) [code = HEPATITIS B VACCINES (1 of 3 - Risk 3-dose series)] Future Scheduled 2022-03-25 COVID-19 VACCINE (3 - [facility] Test 14:48:42 Booster for Pfizer series) [code = COVID-19 VACCINE (3 - Booster for Pfizer series)] Future Scheduled 2022-03-25 65+ [facility] Test 14:48:42 VACCINE (4 - PPSV23 if available, else PCV20) [code = 65+ PNEUMOCOCCAL VACCINE (4 - PPSV23 if available, else PCV20)] Future Scheduled 2022-03-25 INFLUENZA VACCINE Method [facility] Test 14:48:42 [code = INFLUENZA VACCINE] Future Scheduled 2022-03-25 SHINGLES VACCINES (1 Met [facility] Test 14:48:42 of 2) [code = SHINGLES VACCINES (1 of 2)] Future Scheduled 2022-03-25 BREAST CANCER [facility] Test 14:48:42 SCREENING [code = BREAST CANCER SCREENING] Future Scheduled 2022-03-25 COLONOSCOPY SCREENING [facility] Test 14:48:42 [code = COLONOSCOPY SCREENING] Future Scheduled 2022-03-25 HEPATITIS B VACCINES Met [facility] Test 14:48:42 (1 of 3 - Risk 3-dose series) [code = HEPATITIS B VACCINES (1 of 3 - Risk 3-dose series)] Future Scheduled 2022-03-25 COVID-19 VACCINE (3 - [facility] Test 14:48:42 Booster for Pfizer series) [code = COVID-19 VACCINE (3 - Booster for Pfizer series)] Future Scheduled 2022-03-25 65[facility] 14:48:42 VACCINE (4 - PPSV23 if available, else PCV20) [code = 65+ PNEUMOCOCCAL VACCINE (4 - PPSV23 if available, else PCV20)] Future Scheduled 2022-03-25 INFLUENZA VACCINE Method [facility] Test 14:48:42 [code = INFLUENZA VACCINE] Future Scheduled 2022-03-25 SHINGLES VACCINES (1 Met [facility] Test 14:48:42 of 2) [code = SHINGLES VACCINES (1 of 2)] Future Scheduled 2022-03-25 BREAST CANCER [facility] Test 14:48:42 SCREENING [code = BREAST CANCER SCREENING] Future Scheduled 2022-03-25 COLONOSCOPY SCREENING [facility] Test 14:48:42 [code = COLONOSCOPY SCREENING] Future Scheduled 2022-03-25 HEPATITIS B VACCINES Met [facility] Test 14:48:42 (1 of 3 - Risk 3-dose series) [code = HEPATITIS B VACCINES (1 of 3 - Risk 3-dose series)] Future Scheduled 2022-03-25 COVID-19 VACCINE (3 - [facility] Test 14:48:42 Booster for Pfizer series) [code = COVID-19 VACCINE (3 - Booster for Pfizer series)] Future Scheduled 2022-03-25 65[facility] 14:48:42 VACCINE (4 - PPSV23 if available, else PCV20) [code = 65+ PNEUMOCOCCAL VACCINE (4 - PPSV23 if available, else PCV20)] Future Scheduled 2022-03-25 INFLUENZA VACCINE Method [facility] Test 14:48:42 [code = INFLUENZA VACCINE] Future Scheduled 2022-03-25 SHINGLES VACCINES (1 Met [facility] Test 14:48:42 of 2) [code = SHINGLES VACCINES (1 of 2)] Future Scheduled 2022-03-25 BREAST CANCER [facility] Test 14:48:42 SCREENING [code = BREAST CANCER SCREENING] Future Scheduled 2022-03-25 COLONOSCOPY SCREENING [facility] Test 14:48:42 [code = COLONOSCOPY SCREENING] Future Scheduled 2022-03-25 HEPATITIS B VACCINES Met [facility] Test 14:48:42 (1 of 3 - Risk 3-dose series) [code = HEPATITIS B VACCINES (1 of 3 - Risk 3-dose series)] Future Scheduled 2022-03-25 COVID-19 VACCINE (3 - [facility] Test 14:48:42 Booster for Pfizer series) [code = COVID-19 VACCINE (3 - Booster for Pfizer series)] Future Scheduled 2022-03-25 65+ PNEUMOCOCCAL [facility] Test 14:48:42 VACCINE (4 - PPSV23 if available, else PCV20) [code = 65+ PNEUMOCOCCAL VACCINE (4 - PPSV23 if available, else PCV20)] Future Scheduled 2022-03-25 INFLUENZA VACCINE Method [facility] Test 14:48:42 [code = INFLUENZA VACCINE] Future Scheduled 2022-03-04 SHINGLES VACCINES (1 Met [facility] Test 14:03:57 of 2) [code = SHINGLES VACCINES (1 of 2)] Future Scheduled 2022-03-04 BREAST CANCER [facility] Test 14:03:57 SCREENING [code = BREAST CANCER SCREENING] Future Scheduled 2022-03-04 COLONOSCOPY SCREENING [facility] Test 14:03:57 [code = COLONOSCOPY SCREENING] Future Scheduled 2022-03-04 HEPATITIS B VACCINES Met [facility] Test 14:03:57 (1 of 3 - Risk 3-dose series) [code = HEPATITIS B VACCINES (1 of 3 - Risk 3-dose series)] Future Scheduled 2022-03-04 COVID-19 VACCINE (3 - [facility] Test 14:03:57 Booster for Pfizer series) [code = COVID-19 VACCINE (3 - Booster for Pfizer series)] Future Scheduled 2022-03-04 65[facility] 14:03:57 VACCINE (4 - PPSV23 if available, else PCV20) [code = 65+ PNEUMOCOCCAL VACCINE (4 - PPSV23 if available, else PCV20)] Future Scheduled 2022-03-04 INFLUENZA VACCINE Method [facility] Test 14:03:57 [code = INFLUENZA VACCINE] Future Scheduled 2022-03-04 SHINGLES VACCINES (1 Met [facility] Test 14:03:57 of 2) [code = SHINGLES VACCINES (1 of 2)] Future Scheduled 2022-03-04 BREAST CANCER [facility] Test 14:03:57 SCREENING [code = BREAST CANCER SCREENING] Future Scheduled 2022-03-04 COLONOSCOPY SCREENING [facility] Test 14:03:57 [code = COLONOSCOPY SCREENING] Future Scheduled 2022-03-04 HEPATITIS B VACCINES Met [facility] Test 14:03:57 (1 of 3 - Risk 3-dose series) [code = HEPATITIS B VACCINES (1 of 3 - Risk 3-dose series)] Future Scheduled 2022-03-04 COVID-19 VACCINE (3 - [facility] Test 14:03:57 Booster for Pfizer series) [code = COVID-19 VACCINE (3 - Booster for Pfizer series)] Future Scheduled 2022-03-04 65[facility] 14:03:57 VACCINE (4 - PPSV23 if available, else PCV20) [code = 65+ PNEUMOCOCCAL VACCINE (4 - PPSV23 if available, else PCV20)] Future Scheduled 2022-03-04 INFLUENZA VACCINE Method [facility] Test 14:03:57 [code = INFLUENZA VACCINE] Future Scheduled 2022-03-04 SHINGLES VACCINES (1 Met [facility] Test 14:03:57 of 2) [code = SHINGLES VACCINES (1 of 2)] Future Scheduled 2022-03-04 BREAST CANCER [facility] Test 14:03:57 SCREENING [code = BREAST CANCER SCREENING] Future Scheduled 2022-03-04 COLONOSCOPY SCREENING [facility] Test 14:03:57 [code = COLONOSCOPY SCREENING] Future Scheduled 2022-03-04 HEPATITIS B VACCINES Met [facility] Test 14:03:57 (1 of 3 - Risk 3-dose series) [code = HEPATITIS B VACCINES (1 of 3 - Risk 3-dose series)] Future Scheduled 2022-03-04 COVID-19 VACCINE (3 - [facility] Test 14:03:57 Booster for Pfizer series) [code = COVID-19 VACCINE (3 - Booster for Pfizer series)] Future Scheduled 2022-03-04 65+ [facility]CCAL [facility] Test 14:03:57 VACCINE (4 - PPSV23 if available, else PCV20) [code = 65+ PNEUMOCOCCAL VACCINE (4 - PPSV23 if available, else PCV20)] Future Scheduled 2022-03-04 INFLUENZA VACCINE Method [facility] Test 14:03:57 [code = INFLUENZA VACCINE] Future Scheduled 2022-03-04 SHINGLES VACCINES (1 Met [facility] Test 14:03:57 of 2) [code = SHINGLES VACCINES (1 of 2)] Future Scheduled 2022-03-04 BREAST CANCER [facility] Test 14:03:57 SCREENING [code = BREAST CANCER SCREENING] Future Scheduled 2022-03-04 COLONOSCOPY SCREENING [facility] Test 14:03:57 [code = COLONOSCOPY SCREENING] Future Scheduled 2022-03-04 HEPATITIS B VACCINES Met [facility] Test 14:03:57 (1 of 3 - Risk 3-dose series) [code = HEPATITIS B VACCINES (1 of 3 - Risk 3-dose series)] Future Scheduled 2022-03-04 COVID-19 VACCINE (3 - Me [facility] Test 14:03:57 Booster for Pfizer series) [code = COVID-19 VACCINE (3 - Booster for Pfizer series)] Future Scheduled 2022-03-04 65[facility] 14:03:57 VACCINE (4 - PPSV23 if available, else PCV20) [code = 65+ PNEUMOCOCCAL VACCINE (4 - PPSV23 if available, else PCV20)] Future Scheduled 2022-03-04 INFLUENZA VACCINE Method [facility] Test 14:03:57 [code = INFLUENZA VACCINE] Future Scheduled 2022-02-11 SHINGLES VACCINES (1 Met [facility] Test 13:39:12 of 2) [code = SHINGLES VACCINES (1 of 2)] Future Scheduled 2022-02-11 BREAST CANCER [facility] Test 13:39:12 SCREENING [code = BREAST CANCER SCREENING] Future Scheduled 2022-02-11 COLONOSCOPY SCREENING [facility] Test 13:39:12 [code = COLONOSCOPY SCREENING] Future Scheduled 2022-02-11 HEPATITIS B VACCINES Met [facility] Test 13:39:12 (1 of 3 - Risk 3-dose series) [code = HEPATITIS B VACCINES (1 of 3 - Risk 3-dose series)] Future Scheduled 2022-02-11 COVID-19 VACCINE (3 - [facility] Test 13:39:12 Booster for Pfizer series) [code = COVID-19 VACCINE (3 - Booster for Pfizer series)] Future Scheduled 2022-02-11 65+ [facility]AL [facility] Test 13:39:12 VACCINE (4 - PPSV23 or PCV20) [code = 65+ PNEUMOCOCCAL VACCINE (4 - PPSV23 or PCV20)] Future Scheduled 2022-02-11 [facility] 13:39:12 [code = INFLUENZA VACCINE] Future Scheduled 2022-01-29 SHINGLES VACCINES (1 Met [facility] Test 14:07:20 of 2) [code = SHINGLES VACCINES (1 of 2)] Future Scheduled 2022-01-29 BREAST CANCER [facility] Test 14:07:20 SCREENING [code = BREAST CANCER SCREENING] Future Scheduled 2022-01-29 COLONOSCOPY SCREENING [facility] Test 14:07:20 [code = COLONOSCOPY SCREENING] Future Scheduled 2022-01-29 HEPATITIS B VACCINES Met [facility] Test 14:07:20 (1 of 3 - Risk 3-dose series) [code = HEPATITIS B VACCINES (1 of 3 - Risk 3-dose series)] Future Scheduled 2022-01-29 COVID-19 VACCINE (3 - [facility] Test 14:07:20 Booster for Pfizer series) [code = COVID-19 VACCINE (3 - Booster for Pfizer series)] Future Scheduled 2022-01-29 65+ PNEUMOCOCCAL [facility] Test 14:07:20 VACCINE (4 - PPSV23 or PCV20) [code = 65+ PNEUMOCOCCAL VACCINE (4 - PPSV23 or PCV20)] Future Scheduled 2022-01-29 INFLUENZA VACCINE Method [facility] Test 14:07:20 [code = INFLUENZA VACCINE] Future Scheduled 2022-01-29 SHINGLES VACCINES (1 Met [facility] Test 14:07:20 of 2) [code = SHINGLES VACCINES (1 of 2)] Future Scheduled 2022-01-29 BREAST CANCER [facility] Test 14:07:20 SCREENING [code = BREAST CANCER SCREENING] Future Scheduled 2022-01-29 COLONOSCOPY SCREENING [facility] Test 14:07:20 [code = COLONOSCOPY SCREENING] Future Scheduled 2022-01-29 HEPATITIS B VACCINES Met [facility] Test 14:07:20 (1 of 3 - Risk 3-dose series) [code = HEPATITIS B VACCINES (1 of 3 - Risk 3-dose series)] Future Scheduled 2022-01-29 COVID-19 VACCINE (3 - [facility] Test 14:07:20 Booster for Pfizer series) [code = COVID-19 VACCINE (3 - Booster for Pfizer series)] Future Scheduled 2022-01-29 65+ PNEUMOCOCCAL [facility] Test 14:07:20 VACCINE (4 - PPSV23 or PCV20) [code = 65+ PNEUMOCOCCAL VACCINE (4 - PPSV23 or PCV20)] Future Scheduled 2022-01-29 INFLUENZA VACCINE Method [facility] Test 14:07:20 [code = INFLUENZA VACCINE] Future Scheduled 2022-01-29 SHINGLES VACCINES (1 Met [facility] Test 14:07:20 of 2) [code = SHINGLES VACCINES (1 of 2)] Future Scheduled 2022-01-29 BREAST CANCER [facility] Test 14:07:20 SCREENING [code = BREAST CANCER SCREENING] Future Scheduled 2022-01-29 COLONOSCOPY SCREENING [facility] Test 14:07:20 [code = COLONOSCOPY SCREENING] Future Scheduled 2022-01-29 HEPATITIS B VACCINES Met [facility] Test 14:07:20 (1 of 3 - Risk 3-dose series) [code = HEPATITIS B VACCINES (1 of 3 - Risk 3-dose series)] Future Scheduled 2022-01-29 COVID-19 VACCINE (3 - [facility] Test 14:07:20 Booster for Pfizer series) [code = COVID-19 VACCINE (3 - Booster for Pfizer series)] Future Scheduled 2022-01-29 65[facility] 14:07:[facility] VACCINE (4 - PPSV23 or PCV20) [code = 65+ PNEUMOCOCCAL VACCINE (4 - PPSV23 or PCV20)] Future Scheduled 2022-01-29 INFLUENZA VACCINE Method [facility] Test 14:07:20 [code = INFLUENZA VACCINE] Future Scheduled 2022-01-29 SHINGLES VACCINES (1 Met [facility] Test 14:07:20 of 2) [code = SHINGLES VACCINES (1 of 2)] Future Scheduled 2022-01-29 BREAST CANCER [facility] Test 14:07:20 SCREENING [code = BREAST CANCER SCREENING] Future Scheduled 2022-01-29 COLONOSCOPY SCREENING [facility] Test 14:07:20 [code = COLONOSCOPY SCREENING] Future Scheduled 2022-01-29 HEPATITIS B VACCINES Met [facility] Test 14:07:20 (1 of 3 - Risk 3-dose series) [code = HEPATITIS B VACCINES (1 of 3 - Risk 3-dose series)] Future Scheduled 2022-01-29 COVID-19 VACCINE (3 - [facility] Test 14:07:20 Booster for Pfizer series) [code = COVID-19 VACCINE (3 - Booster for Pfizer series)] Future Scheduled 2022-01-29 65+ PNEUMOCOCCAL [facility] Test 14:07:20 VACCINE (4 - PPSV23 or PCV20) [code = 65+ PNEUMOCOCCAL VACCINE (4 - PPSV23 or PCV20)] Future Scheduled 2022-01-29 INFLUENZA VACCINE Method [facility] Test 14:07:20 [code = INFLUENZA VACCINE] Future Scheduled 2022-01-20 SHINGLES VACCINES (1 Met [facility] Test 06:12:34 of 2) [code = SHINGLES VACCINES (1 of 2)] Future Scheduled 2022-01-20 Screening for [facility] Test 06:12:34 malignant neoplasm of cervix (procedure) [code = 057682295] Future Scheduled 2022-01-20 BREAST CANCER [facility] Test 06:12:34 SCREENING [code = BREAST CANCER SCREENING] Future Scheduled 2022-01-20 COLONOSCOPY SCREENING [facility] Test 06:12:34 [code = COLONOSCOPY SCREENING] Future Scheduled 2022-01-20 HEPATITIS B VACCINES Met [facility] Test 06:12:34 (1 of 3 - Risk 3-dose series) [code = HEPATITIS B VACCINES (1 of 3 - Risk 3-dose series)] Future Scheduled 2022-01-20 COVID-19 VACCINE (3 - [facility] Test 06:12:34 Booster for Pfizer series) [code = COVID-19 VACCINE (3 - Booster for Pfizer series)] Future Scheduled 2022-01-20 65+ PNEUMOCOCCAL [facility] Test 06:12:34 VACCINE (4 - PPSV23 or PCV20) [code = 65+ PNEUMOCOCCAL VACCINE (4 - PPSV23 or PCV20)] Future Scheduled 2022-01-20 INFLUENZA VACCINE Method [facility] Test 06:12:34 [code = INFLUENZA VACCINE] Future Scheduled 2022-01-16 SHINGLES VACCINES (1 Met [facility] Test 12:09:25 of 2) [code = SHINGLES VACCINES (1 of 2)] Future Scheduled 2022-01-16 Screening for [facility] Test 12:09:25 malignant neoplasm of cervix (procedure) [code = 627253289] Future Scheduled 2022-01-16 BREAST CANCER [facility] Test 12:09:25 SCREENING [code = BREAST CANCER SCREENING] Future Scheduled 2022-01-16 COLONOSCOPY SCREENING [facility] Test 12:09:25 [code = COLONOSCOPY SCREENING] Future Scheduled 2022-01-16 HEPATITIS B VACCINES Met [facility] Test 12:09:25 (1 of 3 - Risk 3-dose series) [code = HEPATITIS B VACCINES (1 of 3 - Risk 3-dose series)] Future Scheduled 2022-01-16 COVID-19 VACCINE (3 - [facility] Test 12:09:25 Booster for Pfizer series) [code = COVID-19 VACCINE (3 - Booster for Pfizer series)] Future Scheduled 2022-01-16 65+ PNEUMOCOCCAL [facility] Test 12:09:25 VACCINE (4 - PPSV23 or PCV20) [code = 65+ PNEUMOCOCCAL VACCINE (4 - PPSV23 or PCV20)] Future Scheduled 2022-01-16 INFLUENZA VACCINE Method [facility] Test 12:09:25 [code = INFLUENZA VACCINE] Future Scheduled 2022-01-14 SHINGLES VACCINES (1 Met [facility] Test 04:11:46 of 2) [code = SHINGLES VACCINES (1 of 2)] Future Scheduled 2022-01-14 Screening for [facility] Test 04:11:46 malignant neoplasm of cervix (procedure) [code = [id number]] Future Scheduled 2022-01-14 BREAST CANCER [facility] Test 04:11:46 SCREENING [code = BREAST CANCER SCREENING] Future Scheduled 2022-01-14 COLONOSCOPY SCREENING [facility] [place] [facility] Test 04:11:46 [code = COLONOSCOPY SCREENING] Future Scheduled 2022-01-14 HEPATITIS B VACCINES Met [facility] Test 04:11:46 (1 of 3 - Risk 3-dose series) [code = HEPATITIS B VACCINES (1 of 3 - Risk 3-dose series)] Future Scheduled 2022-01-14 COVID-19 VACCINE (3 - [facility] Test 04:11:46 Booster for Pfizer series) [code = COVID-19 VACCINE (3 - Booster for Pfizer series)] Future Scheduled 2022-01-14 65+ PNEUMOCOCCAL [facility] Test 04:11:46 VACCINE (4 - PPSV23 or PCV20) [code = 65+ PNEUMOCOCCAL VACCINE (4 - PPSV23 or PCV20)] Future Scheduled 2022-01-14 INFLUENZA VACCINE Method [facility] Test 04:11:46 [code = INFLUENZA VACCINE] Future Scheduled 2021-08-26 Screening for [facility] Test 13:02:23 malignant neoplasm of cervix (procedure) [code = [id number]] Future Scheduled 2021-08-26 BREAST CANCER [facility] Test 13:02:23 SCREENING [code = BREAST CANCER SCREENING] Future Scheduled 2021-08-26 COLONOSCOPY SCREENING [facility] Test 13:02:23 [code = COLONOSCOPY SCREENING] Future Scheduled 2021-08-26 Screening for [facility] Test 13:02:23 malignant neoplasm of lung (procedure) [code = 001076170] Future Scheduled 2021-08-26 SHINGLES VACCINES (#1) [facility] Test 13:02:23 [code = SHINGLES VACCINES (#1)] Future Scheduled 2021-08-26 COVID-19 VACCINE (3 - [facility] Test 13:02:23 Pfizer risk 4-dose series) [code = COVID-19 VACCINE (3 - Pfizer risk 4-dose series)] Future Scheduled 2021-08-26 65[facility] 13:02:23 VACCINE (4 of 4 - PPSV23) [code = 65+ PNEUMOCOCCAL VACCINE (4 of 4 - PPSV23)] Future Scheduled 2021-08-26 INFLUENZA VACCINE [facility] Test 13:02:23 [code = INFLUENZA VACCINE] Encounters Start End Encounter Admission Attending Care Care Encounter Source Date/Time Date/Time Type Type Clinicians Facility Department ID 2022-02-18 Outpatient CHW CHW [id number] [place] 14:30:[address] [place] [address] 2021-07-14 Outpatient SADIKOVIC, [facility] [id number] [place] 09:33:51 [facility] 2021-06-02 Outpatient HEMATPOUR, [facility] [id number] [place] 13:58:59 [facility] 2021-04-28 Outpatient HEMATPOUR, [facility] [id number] [place] 11:21:22 [facility] 2021-03-20 Emergency [place] [id number] Univers 16:07:40 [facility] 2020-12-12 Outpatient HEMATPOUR, [facility] [id number] [place] 08:16:46 [facility] 2020-10-31 Outpatient HEMATPOUR, [facility] [id number] [place] 09:44:50 BEVERLY Laird 2020-09-30 Outpatient HEMATPOUR, [facility] [id number] [place] 13:16:03 BEVERLY Laird h 2022-11-26 2022-11-26 Outpatient R [place] [id number] Univers 08:30:00 [facility]-15 2022-11-15 Outpatient R [place] [id number] Univers 08:30:00 08:30:00 [facility] 2022-11-02 2022-11-02 Outpatient R [place]AST, [place] [id number] Univers 08:30:00 08:30:00 [facility] 2022-10-27 2022-10-27 Telephone [facility], [facility] 1.2.840.114 [id number] Univers 00:00:00 00:00:00 [facility] 350.1.13.10 i ty [id number] [address] 2022-10-06 2022-10-06 Outpatient R [facility] [id number] Univers 09:30:00 09:30:00 [facility] 2022-09-26 2022-09-26 Refill [facility], [facility] 1.2.533.972 [id number] Univers 00:00:00 00:00:00 [facility] 350.1.13.10 i [place] [id number] [address] 2022-09-03 2022-09-03 Outpatient R [facility] [id number] Univers 11:00:00 11:00:00 SANTIAGO [facility] 2022-08-24 2022-08-24 Refill [facility], 1.2.840.8 [id number] Univers 00:00:00 00:00:00 [place] 97881.1.1 ity 3.104.2.7 [place] .3.494708 Medica l .8 [place] 2022-05-202022-05-20 Telephone [facility], [facility] 1.2.840.114 [id number] Univers 00:00:00 00:00:00 [facility] 350.1.13.10 i [place] [id number] [address] 2022-05-10 2022-05-10 Emergency [facility] [id number] Univers 10:30:00 16:31:00 HOME ity [facility] 2022-05-10 2022-05-10 Emergency Byron, TRAUMA 1.2.840.114 [id number] Univers 10:30:00 16:31:00 [facility] 350.1.13.10 [place] [id number] [address] 2022-05-10 2022-05-[address] [facility] 1.2.840.114 [id number] Univers 00:00:00 00:00:00 [facility] 350.1.13.10 i [place] [id number] [address] 2022-05-08 2022-05-08 Emergency [facility] [id number] Univers 16:18:00 18:42:00 [facility] 2022-05-08 2022-05-08 [facility] 1.2.840.114 [id number] Univers 16:18:00 18:42:00 Theresa BULLOCK 350.1.13.10 ity of [place].2.[place] [id number] [address] 2022-05-07 2022-05-[address] [facility] 1.2.840.114 [id number] Univers 00:00:00 00:00:00 [facility] 350.1.13.10 i [place] [id number] [address] 2022-05-06 2022-05-06 Emergency X [facility] [id number] Univers 14:13:00 18:19:00 ANETTE barbosa [facility] 2022-05-06 2022-05-06 Emergency [facility] 1.2.167.272 [id number] Univers 14:13:00 18:19:00 Anette BULLOCK 350.1.13.10 ity [facility] 4.2.7.2.686 [facility] [id number] [address] 2022-05-06 2022-05-06 Telephone RonaldJOSÉ ANTONIO 1.2.840.114 [id number] Univers 00:00:00 00:00:00 [place] [facility] 350.1.13.10 i ty of CLINICS 4.2.7.2.686 [facility] [id number] [address] 2022-04-22 2022-04-22 Emergency X [facility] ERT [id number] Univers 13:55:00 17:00:00 PAULETTE [facility] 2022-04-22 2022-04-22 Emergency [facility] 1.2.960.462 [id number] Univers 13:55:00 17:00:00 Paulette BULLOCK 350.1.13.10 i ty of [facility] 4.2.7.2.686 [facility] [id number] [address] 2022-04-07 2022-04-07 Outpatient R UNKNOWN, [place] [id number] Univers 20:40:00 20:40:00 ATTENDING ity [facility] 2022-04-07 2022-04-07 Telephone Devin 1.2.840.7 [id number] Univers 00:00:00 00:00:00 Robbi Hairston 66308.1.1 i ty of 3.104.2.7 [place] .3.881509 Medica l .8 [place] 2022-03-05 2022-03-05 Logistic Specialist [place] Cardenas 1.2.840.1 [id number] Univers 13:45:00 14:00:00 Visit [facility] 38667.1.1 ity of 3.104.2.7 [place] .3.964662 Medica l .8 [place] 2022-03-05 2022-03-05 Office [place], [facility] 1.2.956.808 [id number] Univers 13:00:00 13:30:00 Visit [place] [facility] 350.1.13.10 i ty of CLINICS 4.2.7.2.686 Richi bach [id number] [facility] 089 [place] 2022-03-05 2022-03-05 Outpatient R [facility] [id number] Univers 13:00:00 13:00:00 [facility] 2022-02-26 2022-02-26 Outpatient R [facility] [id number] Univers 08:30:00 08:30:00 [facility] 2022-02-26 2022-02-26 Outpatient R [facility] [id number] Univers 08:30:00 08:30:00 [facility] 2022-02-17 2022-02-17 Transition Stevo, 1.2.840.5 [id number] Univers 00:00:00 00:00:00 of Care Isaias Arredondo 42575.1.1 it y of 3.104.2.7 [place] .3.709757 Medica l .8 [place] 2022-02-10 2022-02-16 Inpatient X [facility] [id number] Univers 22:59:00 19:27:00 TOMY ity [facility] 2022-02-10 2022-02-16 Hospital Reilly Means 1.2.840.1 [id number] Univers 22:59:00 19:27:00 Encounter Ofe Shields 24077.1.1 ity of [place] 3.104.2.7 [place] .3.726909 Medica l .8 [place] 2022-02-11 2022-02-11 Telephone East, 1.2.840.1 [id number] Univers 00:00:00 00:00:00 [place] 99460.1.1 ity of 3.104.2.7 [place] .3.507233 Medica l .8 [place] 2022-02-10 2022-02-10 Travel 1.2.840.1 1.2.843.219 [id number] Univers 00:00:00 00:00:00 81062.1.1 350.1.13.10 ity of 3.104.2.7 4.2.7.3.698 [place] .3.037501 084.8 Medica l .8 [place] 2022-01-30 2022-01-30 Telephone Ronald, 1.2.840.8 [id number] Univers 00:00:00 00:00:00 [place] 34157.1.1 ity of 3.104.2.7 [place] .3.585499 Medica l .8 [place] 2022-01-06 2022-01-06 Orders Doctor FERMIN 1.2.840.114 [id number] Univers 00:00:00 00:00:00 Only Unassigned, JACKELINE 350.1.13.10 ity of [place] [facility] 4.2.7.2.686 Yomi as [id number] [facility] 009 Branch 2021-12-25 2021-12-25 Orders Doctor FERMIN 1.2.840.114 [id number] Univers 00:00:00 00:00:00 Only Unassigned, JACKELINE 350.1.13.10 ity of [place] [facility] 4.2.7.2.686 Yomi as [id number] [facility] 009 [place] 2021-12-12 2021-12-13 Emergency X Bill COLES [facility] ERT [id number] Univers 23:53:00 01:52:00 ity of [facility] 2021-12-12 2021-12-13 Emergency Bill Coles [facility] 1.2.840.114 [id number] Univers 23:53:00 01:52:00 Kiersten BULLOCK 350.1.13.10 i ty of [place] 4.2.7.2.686 [place] [facility] [id number] [facility] 084 Branch 2021-11-20 2021-11-20 Logistic Specialist [facility] UNIVERSIT 1.2.840.114 [id number] Univers 09:45:00 10:00:00 Visit [place] Cardenas [facility] 350.1.13.10 ity of CL[place] 4[place] [id number] [facility] 316 Branch 2021-11-20 2021-11-20 Office FRANCO CardenasIT 1.2.956.120 [id number] Univers 08:30:00 09:00:00 Visit [facility] 350.1.13.10 i ty of [facility] 4.2.7.2.[place] [id number] [facility] 089 Branch 2021-11-20 2021-11-20 Outpatient R [facility] [id number] Univers 08:30:00 08:30:00 [facility] 2021-11-20 2021-11-20 Outpatient R [facility] [id number] Univers 08:30:00 08:30:00 [facility] 2021-11-20 2021-11-20 Outpatient R [facility] [id number] Univers 08:30:00 08:30:00 [facility] 2021-11-20 2021-11-20 Outpatient R [facility] [id number] Univers 08:30:00 08:30:00 [facility] 2021-10-24 2021-10-24 [facility] [id number] Univers 16:27:00 22:26:00 [facility] 2021-10-24 2021-10-24 Emergency X WALKER [facility] ERT [id number] Univers 16:27:00 22:26:00 [facility] 2021-10-24 2021-10-24 Emergency Reilly Means [facility] 1.2.840. 114 [id number] Univers 16:27:00 22:26:00 Charity Mcallister FIRTH 350.1.13.10 ity [facility] 4.2.7.2.[place] DON[place] [id number] [facility] 084 Branch 2021-10-23 2021-10-24 Emergency X WALKER [facility] ERT [id number] Univers 20:22:00 02:57:00 [facility] 2021-10-23 2021-10-24 [facility] 1.2.957.216 [id number] Univers 20:22:00 02:57:00 Charity BULLOCK 350.1.13.10 ity of [place] 4.2.7.2.686 [facility] [id number] [place] 239264 [place] 2021-09-07 2021-09-07 Outpatient R SELF, [place] [id number] Univers 08:00:00 08:00:00 GADIEL ity o f [facility] 2021-09-07 2021-09-07 Outpatient R SELF, [place] [id number] Univers 08:00:00 08:00:00 GADIEL barbosa o [facility] 2021-08-21 2021-08-21 Outpatient R [facility] [id number] Univers 10:45:00 10:45:00 SANTIAGO barbosa [facility] 2021-08-21 2021-08-21 Logistic Specialist [place] Cardenas 1.2.840.1 [id number] Univers 10:45:00 10:45:00 Visit c-Lab 41035.1.1 ity of 3.104.2.7 [place] .3.360003 Medica l .8 [place] 2021-08-21 2021-08-21 Office East, 1.2.840.0 [id number] Univers 08:30:00 09:00:00 Visit [place] 31528.1.1 ity of 3.104.2.7 [place] .3.036410 Medica l .8 [place] 2021-08-21 2021-08-21 Office East, UNIVERSIT 1.2.309.500 [id number] Univers 08:30:00 09:00:00 Visit [place] [facility] 350.1.13.10 i ty of [facility] 4.2.7.2.686 [facility] [id number] [place] 239269 [place] 2021-08-21 2021-08-21 Outpatient R [facility] [id number] Univers 08:30:00 08:30:00 SANTIAGO barbosa [facility] 2021-08-21 2021-08-21 Travel 1.2.840.1 1.2.380.372 [id number] Univers 00:00:00 00:00:00 31704.1.1 350.1.13.10 ity of 3.104.2.7 4.[place].7.3.698 [place] .3.320993 084.8 Medica l .8 [place] 2021-08-14 2021-08-14 Telephone East, 1.2.840.1 [id number] Univers 00:00:00 00:00:00 [place] 90577.1.1 ity of 3.104.2.7 [place] .3.435575 Medica l .8 [place] 2021-08-13 2021-08-13 Telephone East, 1.2.840.8 [id number] Univers 00:00:00 00:00:00 [place] 34514.1.1 ity of 3.104.2.7 [place] .3.126917 Medica l .8 [place] 2021-08-11 2021-08-11 Outpatient [facility] [id number] Univers 08:00:00 08:00:00 [facility] 2021-08-05 2021-08-05 Inpatient [facility] [id number] [facility] 05:24:00 05:24:[address] [place] [address] 2021-07-20 2021-07-20 Outpatient [facility] [id number] Univers 10:00:00 10:00:00 [facility] 2021-07-14 2021-07-14 Office Pankaj, UTP 6400 1.2.840.114 [id number] [place] 08:45:00 09:34:[address] 350.1.13.58 Health 9.2.7.2.686 [id number] 1 2021-07-09 2021-07-09 Telephone Ap, UTP 6400 1.2.840.114 [id number] [place] 00:00:00 00:00:[address] 350.1.13.58 Health 9.2.7.2.686 [id number] 1 2021-07-09 2021-07-09 Telephone Hematpour, UTP 6400 1.2.840.114 [id number] [place] 00:00:00 00:00:[address] 350.1.13.58 Health 9.2.7.2.686 [id number] 1 2021-07-03 2021-07-03 Outpatient R [place]AST, [place] [id number] Univers 08:00:00 08:00:00 SANTIAGO maciely [facility] 2021-06-17 2021-06-17 Inpatient RAUL Lund, HCACL INTE.02 [id number] [facility] 10:56:00 14:36:[address] [place] [address] 2021-06-15 2021-06-15 Outpatient R SELF, [place] [id number] Univers 10:15:00 11:07:21 [facility] 2021-06-15 2021-06-15 Outpatient R SELF, [place] [id number] Univers 10:15:00 10:15:00 [facility] 2021-06-15 2021-06-15 Outpatient R SELF, [place] [id number] Univers 10:15:00 10:15:00 [facility] 2021-06-15 2021-06-15 Orders Doctor 1.2.840.7 [id number] Univers 00:00:00 00:00:00 Only Unassigned, 05492.1.1 ity of [place] 3.104.2.7 [place] .3.378751 Medica l .8 [place] 2021-06-15 2021-06-15 Travel 1.2.840.1 1.2.307.309 [id number] Univers 00:00:00 00:00:00 87473.1.1 350.1.13.10 ity of 3.104.2.7 4.2.7.3.698 [place] .3.987482 084.8 Medica l .8 [place] 2021-06-11 2021-06-11 RefJOSÉ ANTONIO Medrano 1.2.417.402 [id number] Univers 00:00:00 00:00:00 [facility] 350.1.13.10 i ty of [place] [id number] [address] 2021-06-11 2021-06-11 Refill East, 1.2.840.8 [id number] Univers 00:00:00 00:00:00 [place] 51516.1.1 ity of 3.104.2.7 [place] .3.584077 Medica l .8 [place] 2021-06-05 2021-06-05 Outpatient R [facility] [id number] Univers 09:00:00 09:00:00 SANTIAGO ity of [facility] 2021-06-02 2021-06-02 Telephone [facility], UNIVERSIT 1.2.840.114 [id number] Univers 00:00:00 00:00:00 [facility] 350.1.13.10 i ty of CL[place] [id number] [address] 2021-06-02 2021-06-02 Telephone East, 1.2.840.5 [id number] Univers 00:00:00 00:00:00 [place] 52654.1.1 ity of 3.104.2.7 [place] .3.148987 Medica l .8 [place] 2021-05-29 2021-05-29 Telephone East, 1.2.840.1 [id number] Univers 00:00:00 00:00:00 [place] 28887.1.1 ity of 3.104.2.7 [place] .3.408051 Medica l .8 Branch 2021-05-29 2021-05-29 Telephone East, 1.2.840.7 [id number] Univers 00:00:00 00:00:00 [place] 83435.1.1 ity of 3.104.2.7 [place] .3.685786 Medica l .8 Branch 2021-05-25 2021-05-25 Outpatient R [facility] [id number] Univers 08:00:00 08:00:00 GADIEL vogel [facility] 2021-04-29 2021-04-29 Outpatient R LALA, [place] [id number] Univers 08:00:00 08:00:00 NIKOLAI barbosa [facility] 2021-04-28 2021-04-28 Telephone Ap [facility] 6400 1.2.840.114 [id number] [place] 00:00:00 00:00:[address] 350.1.13.58 Health 9.2.7.2.686 [id number] 1 2021-04-28 2021-04-28 Telephone Jailyn 1.2.840.3 [id number] Methodi 00:00:00 00:00:[address] 3.430.2.7 Hospit a .3.882634 l .8 2021-03-31 2021-03-31 Orders Carol Ann 1.2.840.1 [id number] Methodi 00:00:00 00:00:00 Only Sarai Lieberman 87343.1.1 979 s t 3.430.2.7 Hospit a .3.325084 l .8 2021-03-30 2021-03-30 Outpatient R RODO, [place] [id number] Univers 08:45:00 08:45:00 GADIEL familia rodas [facility] 2021-03-24 2021-03-24 Telephone Jailyn 1.2.840.6 [id number] 21 [id number] Methodi 00:00:00 00:00:[address] 3.430.2.7 Hospit a .3.408575 l .8 2021-02-13 2021-02-13 Telephone Ronald 1.2.840.1 [id number] [id number] Univers 00:00:00 00:00:00 [place] 92958.1.1 ity 3.104.2.7 [place] .3.616876 Medica l .8 [place] 2021-01-28 2021-01-28 Laure REEVES, [place] [id number] Univers 08:45:00 09:37:00 NIKOLAI ity of [facility] 2021-01-28 2021-01-28 Travel 1.2.840.1 1.2.765.938 3002 [id number] Univers 00:00:00 00:00:00 99565.1.1 350.1.13.10 ity of 3.104.2.7 4.2.7.3.698 [place] .3.082568 084.8 Medica l .8 Branch 2021-01-19 2021-01-19 Telephone Prabhu, 1.2.840.1 [id number] Method 00:00:00 00:00:[address] 3.430.2.7 Hospit a .3.509627 l .8 2021-01-04 2021-01-04 Dmitry Bass, 1.2.840.4 [id number] 696 Univers 00:00:00 00:00:00 (Out) Dagoberto H 46041.1.1 ity of 3.104.2.7 [place] .3.359851 Medica l .8 Branch 2021-01-04 2021-01-04 Dmitry Bass, 1.2.840.4 [id number] 68876 696 Univers 00:00:00 00:00:00 (Out) Dagoberto H 52592.1.1 ity of 3.104.2.7 [place] .3.262227 Medica l .8 Branch 2021-01-03 2021-01-03 Dmitry Bass, 1.2.840.9 [id number] 31652 790 Univers 00:00:00 00:00:00 (Out) [place]oberto H 90309.1.1 ity of 3.104.2.7 [place] .3.092330 Medica l .8 Branch 2021-01-03 2021-01-03 Dmitry Bass, 1.2.840.0 [id number] 790 Univers 00:00:00 00:00:00 (Out) Dagoberto H 38422.1.1 ity of 3.104.2.7 [place] .3.018745 Medica l .8 Branch 2021-01-02 2021-01-02 Outpatient R [place] [id number] Univers 13:40:00 13:40:00 ity of [facility] 2021-01-02 2021-01-02 Laboratory [place] 1.2.840.7 [id number] Univers 12:14:13 12:57:34 Only Lab, [place] I 21900.1.1 ity of 3.104.2.7 [place] .3.844604 Medica l .8 Branch 2021-01-02 2021-01-02 Laboratory [place] 1.2.840.8 [id number] Univers 12:14:13 12:57:34 Only Lab, Adc Fam Pob I 43185.1.1 ity of 3.104.2.7 [place] .3.607455 Medica l .8 Branch 2021-01-02 2021-01-02 Travel 1.2.840.1 1.2.364.872 5957 2306 Univers 00:00:00 00:00:00 28312.1.1 350.1.13.10 ity of 3.104.2.7 4.2.7.3.698 [place] .3.274289 084.8 Medica l .8 Branch 2021-01-02 2021-01-02 Letter Doctor 1.2.840.7 [id number] Univers 00:00:00 00:00:00 (Out) Unassigned, 89591.1.1 ity of [place] 3.104.2.7 [place] .3.279582 Medica l .8 Branch 2021-01-02 2021-01-02 Letter Doctor 1.2.840.7 [id number] Univers 00:00:00 00:00:00 (Out) Unassigned, 85367.1.1 ity of [place] 3.104.2.7 [place] .3.218903 Medica l .8 Branch 2021-01-02 2021-01-02 Travel 1.2.840.1 1.2.087.794 9943 2306 Univers 00:00:00 00:00:00 58466.1.1 350.1.13.10 ity of 3.104.2.7 4.[place].7.3.698 [place] .3.142292 084.8 Medica l .8 [place] 2021-01-02 2021-01-02 Letter Doctor 1.2.840.2 [id number] 01849 948 Univers 00:00:00 00:00:00 (Out) Unassigned, 16595.1.1 ity of [place] 3.104.2.7 [place] .3.554537 Medica l .8 [place] 2021-01-02 2021-01-02 Letter Doctor 1.2.840.7 [id number] 946 Univers 00:00:00 00:00:00 (Out) Unassigned, 34182.1.1 ity of [place] 3.104.2.7 [place] .3.142176 Medica l .8 [place] 2020-12-22 2020-12-22 Telephone Beltran, 1.2.840.6 [id number] 862 56985 Univers 00:00:00 00:00:00 Robbi Hairston 67652.1.1 i ty of 3.104.2.7 [place] .3.695377 Medica l .8 [place] 2020-12-22 2020-12-22 Telephone Beltran, 1.2.840.2 [id number] 862 35310 Univers 00:00:00 00:00:00 Eligionda R 45804.1.1 i ty of 3.104.2.7 [place] .3.822977 Medica l .8 [place] 2020-12-12 2020-12-12 Office Hematpour, UTP 6400 1.2.840.114 12 [id number] [place] 07:42:02 08:18:50 Visit Beverly RUIZ 350.1.13.58 Health 9.2.7.2.686 [id number] 1 2020-12-12 2020-12-12 Office Hematpour, UTP 6400 1.2.840.114 12 [id number] 07:42:02 08:18:[address] 350.1.13.58 9.2.7.2.686 091.7841830 1 2020-12-09 2020-12-09 Telephone Carol Ann, 1.2.840.1 [id number] Methodi 00:00:00 00:00:00 Sarai Corbin. 10467.1.1 316 s t 3.430.2.7 Hospit a .3.942093 l .8 2020-12-08 2020-12-08 [facility], 1.2.840.1 [id number] 2100 245936 Methodi 12:35:54 23:59:00 Encounter Ray 65462.1.[address] 3.430.2.7 Hospit a .3.030759 l .8 2020-12-08 2020-12-08 [facility], 1.2.840.1 [id number] 38788 82351 Methodi 17:25:00 17:30:[address] 3.430.2.7 Hospit a .3.300979 l .8 2020-12-08 2020-12-08 [facility], 1.2.840.1 [id number] 88981 49573 Methodi 10:30:00 11:39:56 Visit Ray 77677.1.[address] 3.430.2.7 Hospit a .3.246644 l .8 2020-12-08 2020-12-08 Travel 1.2.840.1 1.2.900.493 3229 085478 Methodi 00:00:00 00:00:[address] 3.430.2.7 0.2.7.3.698 Ho spita .3.220471 084.8 l .8 2020-12-02 2020-12-02 Logistic Specialist Santiago Cardenas 1.2.840.1 [id number] [facility] 10:20:06 10:36:19 Visit [facility] 48267.1.1 ity of 3.104.2.7 [place] .3.357317 Medica l .8 [place] 2020-12-02 2020-12-02 Logistic Specialist Santiago Cardenas 1.2.840.1 [id number] 316 [id number] [facility] 10:20:06 10:36:19 Visit [facility] 36667.1.1 ity of 3.104.2.7 [place] .3.453724 Medica l .8 [place] 2020-12-02 2020-12-02 Logistic Specialist [facility] UNIVERSIT 1.2.840.114 8 [id number] 10:20:06 10:36:19 Visit HEALTH 350.1.13.10 CLINICS 4.2.7.2.686 557.9928808 [facility] 2020-12-02 2020-12-02 Office Ronald, 1.2.840.7 [id number] 11253 528 Univers 08:31:37 09:01:37 Visit Santiago 69055.1.1 ity of 3.104.2.7 [place] .3.203629 Medica l .8 [place] 2020-12-02 2020-12-02 Outpatient R [facility] [id number] Univers 09:00:00 09:00:00 SANTIAGO barbosa of [facility] 2020-11-25 2020-11-25 Office Devin, 1.2.840.5 [id number] 865 [facility] 11:06:30 11:58:14 Visit Robbi Hairston 01556.1.1 i ty of 3.104.2.7 [place] .3.387390 Medica l .8 [place] 2020-11-25 2020-11-25 Office Devin, 1.2.840.0 [id number] 40490 865 Univers 11:06:30 11:58:14 Visit Robbi Hairston 97958.1.1 i ty of 3.104.2.7 [place] .3.312557 Medica l .8 [place] 2020-11-25 2020-11-25 [facility] 1.2.840.114 [id number] 65 11:06:30 11:58:14 Visit Robbi Hairston [employer] 350.1.13.10 REGIONAL 4.2.7.2.686 MATERNAL [id number] & CHILD [address] [place] [address] 2020-11-25 2020-11-25 Outpatient R [place] [id number] Univers 11:00:00 11:00:00 ity of [facility] 2020-11-25 2020-11-25 Telephone Devin, 1.2.840.3 [id number] 855 41032 Univers 00:00:00 00:00:00 Robbi Hairston 13557.1.1 i ty of 3.104.2.7 [place] .3.280705 Medica l .8 [place] 2020-11-25 2020-11-25 Refill [place], 1.2.840.2 [id number] 85541 592 Univers 00:00:00 00:00:00 Santiago 68952.1.1 ity of 3.104.2.7 [place] .3.481497 Medica l .8 [place] 2020-11-25 2020-11-25 Travel 1.2.840.1 1.2.149.185 1320 0247 Univers 00:00:00 00:00:00 00659.1.1 350.1.13.10 ity of 3.104.2.7 4.2.7.3.698 [place] .3.680656 084.8 Medica l .8 [place] 2020-11-25 2020-11-25 Orders Doctor 1.2.840.6 [id number] 63984 064 Univers 00:00:00 00:00:00 Only Unassigned, 09251.1.1 ity of [place] 3.104.2.7 [place] .3.927856 Medica l .8 [place] 2020-11-25 2020-11-25 Telephone Devin, 1.2.840.0 [id number] 855 71942 Univers 00:00:00 00:00:00 Robbi Hairston 78102.1.1 i ty of 3.104.2.7 [place] .3.372192 Medica l .8 [place] 2020-11-25 2020-11-25 Refill [place], 1.2.840.6 [id number] 64572 592 Univers 00:00:00 00:00:00 Santiago 91732.1.1 ity of 3.104.2.7 [place] .3.952172 Medica l .8 [place] 2020-11-25 2020-11-25 Travel 1.2.840.1 1.2.414.953 7147 0247 Univers 00:00:00 00:00:00 71432.1.1 350.1.13.10 ity of 3.104.2.7 4.2.7.3.698 [place] .3.106417 084.8 Medica l .8 [place] 2020-11-25 2020-11-25 Orders Doctor 1.2.840.9 [id number] 22368 064 Univers 00:00:00 00:00:00 Only Unassigned, 98421.1.1 ity of [place] 3.104.2.7 [place] .3.905301 Medica l .8 [place] 2020-11-25 2020-11-25 [facility]ly [facility] 1.2.353.690 7325 4592 00:00:00 00:00:00 [facility] 350.1.13.10 [facility] 4.2.7.2.686 585.2828929 089 2020-11-25 2020-11-25 Telephone [facility] 1.2.371.257 4805 0821 00:00:00 00:00:00 Robbi Hairston [employer] 350.1.13.10 [facility] 4.2.7.2.686 MATERNAL [id number] & CHILD [address] [place] [address] 2020-11-14 2020-11-14 Abstract Clark 1.2.840.1 [id number] 05089 59361 Methodi 00:00:00 00:00:[address] 3.430.2.7 Hospit a .3.322317 l .8 2020-11-14 2020-11-14 Telephone Clark 1.2.840.1 [id number] 2100 185358 Methodi 00:00:00 00:00:[address] 3.430.2.7 Hospit a .3.378925 l .8 2020-11-12 2020-11-12 Outpatient R RONALD [place] [id number] Univers 08:30:00 08:30:00 SANTIAGO ity of [facility] 2020-11-07 2020-11-07 Telephone Agustina Ortiz UTP 6400 1.2.840.11 4 [id number] [place] 00:00:00 00:00:[address] 350.1.13.58 Health 9.2.7.2.686 174.4183963 1 2020-11-07 2020-11-07 Telephone Diana UTP 6400 1.2.840.114 124 [id number] 00:00:00 00:00:[address] 350.1.13.58 9.2.7.2.686 708.8967005 1 2020-10-31 2020-10-31 Office Hematpour, KIMBERLEY 6400 1.2.840.114 12 [id number] [place] 07:54:00 09:45:[address] 350.1.13.58 Health 9.2.7.2.686 [id number] 1 2020-10-30 2020-10-30 Abstract Rody Maguire UTP 6400 1.2.840.1 14 [id number] [place] 00:00:00 00:00:[address] 350.1.13.58 Health 9.2.7.2.686 [id number] 1 2020-10-29 2020-10-29 Refill [place], 1.2.840.1 [id number] 25210 400 Univers 00:00:00 00:00:00 Santiago 23184.1.1 ity of 3.104.2.7 [place] .3.215098 Medica l .8 [place] 2020-10-29 2020-10-29 Refill [place], 1.2.840.4 [id number] 54385 400 Univers 00:00:00 00:00:00 Santiago 23645.1.1 ity of 3.104.2.7 [place] .3.324780 Medica l .8 [place] 2020-10-27 2020-10-27 Telephone Jailyn, 1.2.840.2 [id number] 21 [id number] Methodi 00:00:00 00:00:[address] 3.430.2.7 Hospit a .3.686176 l .8 2020-10-24 2020-10-24 Telephone Clark, 1.2.840.1 [id number] 2100 793753 Methodi 00:00:00 00:00:[address] 3.430.2.7 Hospit a .3.342191 l .8 2020-10-22 2020-10-22 Outpatient R SELF, [place] [id number] 868 Univers 13:00:00 13:00:00 GADIEL barbosa [facility] 2020-10-22 2020-10-22 Travel 1.2.840.1 1.2.658.755 9524 3839 Univers 00:00:00 00:00:00 36260.1.1 350.1.13.10 ity of 3.104.2.7 4.[place].7.3.698 [place] .3.311577 084.8 Medica l .8 [place] 2020-10-22 2020-10-22 Travel 1.2.840.1 1.2.896.185 5766 3839 Univers 00:00:00 00:00:00 46940.1.1 350.1.13.10 ity of 3.104.2.7 4.2.7.3.698 [place] .3.330014 084.8 Medica l .8 [place] 2020-10-13 2020-10-13 Outpatient R SELF, [place] [id number] Univers 08:45:00 08:45:00 GADIEL barbosa [facility] 2020-10-06 2020-10-12 Telemedici Cadea, 1.2.840.1 [id number] 21 [id number] Methodi 15:30:00 00:08:46 ne Ray 34889.1.[address] 3.430.2.7 Hospit a .3.053343 l .8 2020-09-30 2020-09-30 [facility], 1.2.840.0 [id number] 21 [id number] Methodi 00:00:00 00:00:[address] 3.430.2.7 Hospit a .3.835906 l .8 2020-09-21 2020-09-21 [facility] 1.2.840.1 1.2.180.521 1449 837917 Methodi 00:00:00 00:00:[address] 3.430.2.7 0.2.7.3.698 Ho spita .3.170015 084.8 l .8 2020-09-06 2020-09-06 [facility] 1.2.840.1 [id number] 02300 72253 Methodi 17:42:30 23:59:[address] 3.430.2.7 Hospit a .3.895734 l .8 2020-09-06 2020-09-06 [facility], 1.2.840.1 [id number] 2099 079987 Methodi 16:50:00 17:41:00 Encounter Ray [address]12.1.[address] 3.430.2.7 Hospit a .3.393600 l .8 2020-09-05 2020-09-05 [facility], 1.2.840.1 [id number] 2099 916307 Methodi 09:17:00 19:45:00 Encounter Ray [address]250.1.[address] 3.430.2.7 Hospit a .3.590833 l .8 2020-09-05 2020-09-05 [facility], 1.2.840.1 [id number] Methodi 11:30:00 13:15:[address] 3.430.2.7 Hospit a .3.618477 l .8 2020-09-05 2020-09-05 Anesthesia [facility], 1.2.840.1 [id number] 378 [id number] Methodi 11:27:00 12:20:00 Event Kirit 73725.1.1 243 s t V. 3.430.2.7 Hospit a .3.789894 l .8 2020-09-05 2020-09-05 Travel 1.2.840.1 1.2.935.729 6205 655551 Methodi 00:00:00 00:00:[address] 3.430.2.7 0.2.7.3.698 Ho spita .3.124495 084.8 l .8 2020-09-04 2020-09-04 Telephone Meisenbach, 1.2.840.1 [id number] Methodi 00:00:00 00:00:00 Sarai Lieberman 70317.1.1 762 s t 3.430.2.7 Hospit a .3.099179 l .8 2020-09-02 2020-09-02 Telephone [place], 1.2.840.1 [id number] Methodi 00:00:00 00:00:00 Sarai Lieberman 46178.1.1 344 s t 3.430.2.7 Hospit a .3.260007 l .8 2020-08-29 2020-08-[id number] [facility] 10:20:00 14:10:00 Outpatient r [place] 00 l [facility] 2020-08-29 2020-08-30 Outpatient HEMATPOUR, [facility] CAR 7500 [facility] 05:20:00 09:10:00 BEVERLY 2020-08-06 2020-08-06 Office [place], 1.2.840.1 [id number] 416 [facility] 08:03:23 09:17:49 Visit Santiago 17918.1.1 familia 3.104.2.7 [place] .3.906170 Medica l [address] 2020-08-06 2020-08-06 Outpatient R RONALD [place] [id number] [facility] 08:30:00 08:30:00 SANTIAGO barbosa of [facility] 2020-07-14 2020-07-14 [facility] [id number] Univers 09:30:00 09:30:00 GADIEL rodas [facility] 2020-07-14 2020-07-14 Travel 1.2.840.1 1.2.932.180 8435 2575 Univers 00:00:00 00:00:00 09519.1.1 350.1.13.10 ity of 3.104.2.7 4.[place].7.3.698 [place] .3.211738 084.8 Medica l .8 [place] 2020-07-14 2020-07-14 Orders Doctor 1.2.840.2 [id number] 309 Univers 00:00:00 00:00:00 Only Unassigned, 88702.1.1 ity of [place] 3.104.2.7 [place] .3.765058 Medica l .8 [place] 2020-06-16 2020-06-16 Outpatient R [facility] [id number] Univers 08:00:00 08:00:00 GADIEL rodas [facility] 2020-06-06 2020-06-06 Telephone East, 1.2.840.6 [id number] 809 [id number] Univers 00:00:00 00:00:00 Santiago 02120.1.1 ity of 3.104.2.7 [place] .3.228963 Medica l .8 [place] 2020-06-04 2020-06-04 Logistic Specialist Santiago Cardenas 1.2.840.1 [id number] Univers 09:31:58 09:40:12 Visit [facility] 07424.1.1 ity of 3.104.2.7 [place] .3.823303 Medica l .8 [place] 2020-06-04 2020-06-04 Office JOSÉ ANTONIO Cardenas 1.2.093.318 0307 9729 Univers 08:13:41 09:28:25 Visit Santiago [facility] 350.1.13.10 i ty of CLINICS 4.2.7.2.[place] 468.0380659 [facility] porfirio 089 [place] 2020-06-04 2020-06-04 [facility] [id number] Univers 08:30:00 08:30:00 SANTIAGO ity [facility] 2020-06-04 2020-06-04 Orders Doctor 1.2.840.4 [id number] 079 Univers 00:00:00 00:00:00 Only Unassigned, 03728.1.1 ity of [place] 3.104.2.7 [place] .3.173970 Medica l .8 [place] 2020-05-19 2020-05-19 Telephone [place], 1.2.840.3 [id number] 804 [id number] Univers 00:00:00 00:00:00 Santiago 23497.1.1 ity of 3.104.2.7 [place] .3.539946 Medica l .8 [place] 2020-04-24 2020-04-24 Telephone [place], 1.2.840.9 [id number] 799 06694 Univers 00:00:00 00:00:00 Santiago 69518.1.1 ity of 3.104.2.7 [place] .3.072645 Medica l .8 [place] 2020-04-14 2020-04-14 Outpatient R [facility] [id number] Univers 09:00:00 09:00:00 SANTIAGO barbosa [facility] 2020-04-14 2020-04-14 Telephone [place], 1.2.840.4 [id number] 797 32587 Univers 00:00:00 00:00:00 Santiago 21005.1.1 ity of 3.104.2.7 [place] .3.049586 Medica l .8 [place] 2020-03-31 2020-03-31 Outpatient R [facility] [id number] Univers 08:30:00 08:30:00 SANTIAGO ity [facility] 2020-03-03 2020-03-03 Outpatient R SELF, [place] [id number] Univers 08:00:00 08:00:00 GADIEL rodas [facility] 2020-03-03 2020-03-03 Outpatient R SELF, [place] [id number] Univers 08:00:00 08:00:00 GADIEL rodas [facility] 2020-03-03 2020-03-03 Travel 1.2.840.1 1.2.693.121 2135 5480 Univers 00:00:00 00:00:00 66281.1.1 350.1.13.10 ity of 3.104.2.7 4.2.7.3.698 [place] .3.495296 084.8 Medica l .8 [place] 2020-02-06 2020-02-06 Telephone [place], 1.2.840.9 [id number] 781 02070 Univers 00:00:00 00:00:00 Santiago 02076.1.1 ity of 3.104.2.7 [place] .3.905527 Medica l .8 [place] 2020-01-26 2020-01-26 Emergency Caridad, 1.2.840.6 [id number] 779 45598 Univers 10:03:00 13:05:00 Cynise 26556.1.1 ity of 3.104.2.7 [place] .3.893540 Medica l .8 [place] 2020-01-26 2020-01-26 Travel 1.2.840.1 1.2.085.774 6551 0120 Univers 00:00:00 00:00:00 14167.1.1 350.1.13.10 ity of 3.104.2.7 4.[place].7.3.698 [place] .3.346150 084.8 Medica l .8 [place] 2020-01-25 2020-01-25 Outpatient R [facility] [id number] Univers 08:30:00 08:30:00 SANTIAGO ity of [facility] 2020-01-25 2020-01-25 Telemedici [place], 1.2.840.1 [id number] Univers 07:36:49 08:06:49 ne Visit Santiago 93737.1.1 ity of 3.104.2.7 [place] .3.686446 Medica l .8 [place] 2020-01-16 2020-01-16 Outpatient R [facility] [id number] Univers 08:00:00 08:00:00 SANTIAGO ity of [facility] 2020-01-16 2020-01-16 Telephone [place], 1.2.840.7 [id number] Univers 00:00:00 00:00:00 Santiago 83783.1.1 ity of 3.104.2.7 [place] .3.844797 Medica l .8 [place] 2020-01-14 2020-01-14 Outpatient R SELF, [place] [id number] Univers 08:00:00 08:00:00 GADIEL barbosa o clark [facility] 2019-12-31 2019-12-31 Outpatient R SELF, [place] [id number] Univers 08:45:00 08:45:00 GADIEL barbosa o clark [facility] 2019-10-17 2019-10-17 Outpatient R EAST, [place] [id number] Univers 08:30:00 08:30:00 SANTIAGO familia [facility] 2019-10-12 2019-10-12 Outpatient R EAST, [place] [id number] Univers 13:00:00 13:00:00 SANTIAGO ity [facility] 2019-10-12 2019-10-12 Telemedici [place], 1.2.840.4 [id number] Univers 07:38:30 08:08:30 ne Visit Santiago 75400.1.1 ity of 3.104.2.7 [place] .3.170837 Medica l .8 [place] 2019-10-08 2019-10-08 Outpatient R SELF, [place] [id number] Univers 10:15:00 10:15:00 GADIEL rodas [facility] 2019-10-03 2019-10-03 Case Assman, 1.2.840.5 [id number] Univers 00:00:00 00:00:00 Management Michael Corbin 31070.1.1 i ty of 3.104.2.7 [place] .3.034555 Medica l .8 [place] 2019-09-27 2019-09-27 Telephone East, 1.2.840.1 [id number] [id number] Univers 00:00:00 00:00:00 Santiago 24148.1.1 ity of 3.104.2.7 [place] .3.570775 Medica l .8 [place] 2019-09-04 2019-09-04 Refill [place], 1.2.840.4 [id number] 497 Univers 00:00:00 00:00:00 Santiago 30108.1.1 ity of 3.104.2.7 [place] .3.614719 Medica l .8 [place] 2019-07-24 2019-07-24 Outpatient R [facility] [id number] Univers 08:30:00 08:30:00 SANTIAGO ity [facility] 2019-07-17 2019-07-17 Outpatient R [facility] [id number] Univers 10:00:00 10:00:00 SANTIAGO ity [facility] 2019-06-15 2019-06-15 Telephone East, 1.2.840.8 [id number] [id number] Univers 00:00:00 00:00:00 Santiago 29489.1.1 ity of 3.104.2.7 [place] .3.884042 Medica l .8 [place] 2019-06-13 2019-06-13 Telephone Team, [facility] 1.2.840.1 [id number] Univers 00:00:00 00:00:00 Health 03890.1.1 ity of [place].2.7 [place] .3.448178 Medica [place] .8 [place] 2019-05-10 2019-05-10 Refill Ronald, 1.2.840.1 [id number] Univers 00:00:00 00:00:00 Santiago 52263.1.1 ity of 3.104.2.7 [place] .3.211535 Medica l .8 [place] 2019-05-09 2019-05-09 Refill Ronald, 1.2.840.4 [id number] Univers 00:00:00 00:00:00 Santiago 26830.1.1 ity of 3.104.2.7 [place] .3.767612 Medica l .8 [place] 2019-04-30 2019-04-30 [facility] [id number] Univers 10:15:00 10:33:05 GADIEL barbosa o f [facility] 2019-04-18 2019-04-18 Logistic Specialist [place] Cardenas 1.2.840.1 [id number] Univers 10:00:39 10:44:31 Visit [facility] 61028.1.1 ity of 3.104.2.7 [place] .3.580262 Medica l .8 [place] 2019-04-18 2019-04-18 Outpatient R RONALD, [place] [id number] Univers 10:00:00 10:44:31 SANTIAGO ity of [facility] 2019-04-18 2019-04-18 Office [place], 1.2.840.2 [id number] 005 Univers 08:27:44 09:53:27 Visit Santiago 27195.1.1 ity of 3.104.2.7 [place] .3.955585 Medica l .8 [place] 2019-04-18 2019-04-18 Orders Doctor 1.2.840.2 [id number] Univers 00:00:00 00:00:00 Only Unassigned, 83557.1.1 ity of [place] 3.104.2.7 [place] .3.277728 Medica l .8 [place] 2019-04-11 2019-04-11 Refill [place], 1.2.840.5 [id number] 033 Univers 00:00:00 00:00:00 Santiago 81277.1.1 ity of 3.104.2.7 [place] .3.917188 Medica l .8 [place] 2019-04-09 2019-04-09 [address] [facility], 1.2.840.6 [id number] Univers 00:00:00 00:00:00 Santiago 37541.1.1 ity of 3.104.2.7 [place] .3.862569 Medica l .8 [place] 2019-04-03 2019-04-03 Telephone Team, [facility] 1.2.840.1 [id number] Univers 00:00:00 00:00:00 Health 58713.1.1 ity of [place]104.2.7 [place] .3.258816 Medica l .8 [place] 2019-03-27 2019-03-27 Telephone Self, 1.2.840.1 [id number] 723 [id number] Univers 00:00:00 00:00:00 Gadiel 83245.1.1 ity of 3.104.2.7 [place] .3.874917 Medica l .8 [place] 2019-01-17 2019-01-17 Office Ronald, 1.2.840.5 [id number] Univers 07:37:21 10:32:51 Visit Santiago 21161.1.1 ity of 3.104.2.7 [place] .3.405115 Medica l .8 [place] 2019-01-04 2019-01-12 Office Eveline Hansen 1.2.840.0 [id number] Univers 11:19:32 11:08:05 Visit Mariela 39094.1.1 ity of 3.104.2.7 [place] .3.134911 Medica l .8 [place] 2019-01-10 2019-01-10 Telephone Arabellatejacharlie, 1.2.840.6 [id number] Univers 00:00:00 00:00:00 Eldaio Storm 15419.1.1 ity of 3.104.2.7 [place] .3.833237 [facility] 2018-12-18 2018-12-18 Office Geraldine, 1.2.840.7 [id number] Univers 08:48:45 09:13:43 Visit Leyda 44645.1.1 it y of 3.104.2.7 [place] .3.996662 Med[facility] l .[facility] 2018-10-30 2018-10-30 Telephone [facility], 1.2.840.4 [id number] Univers 00:00:00 00:00:00 Santiago 16001.1.1 ity of 3.104.2.7 [place] .3.603470 Medica l .8 Branch 2018-10-23 2018-10-23 Orders Doctor 1.2.840.5 [id number] Univers 00:00:00 00:00:00 Only Unassigned, 11729.1.1 ity of [place] 3.104.2.7 [place] .3.175846 Medica l .8 Branch 2018-10-23 2018-10-23 Nurse Selvin, 1.2.840.9 [id number] Univers 00:00:00 00:00:00 Triage Stefanie 42771.1.1 ity of 3.104.2.7 [place] .3.439394 Med[facility] l .8 Branch 2018-10-23 2018-10-23 Telephone Self, 1.2.840.0 [id number] Univers 00:00:00 00:00:00 Gadiel 43738.1.1 ity of 3.104.2.7 [place] .3.958707 Medica l .8 Branch 2018-10-20 2018-10-20 Telephone Self, 1.2.840.9 [id number] Univers 00:00:00 00:00:00 Gadiel 73155.1.1 ity of 3.104.2.7 [place] .3.454407 Medica l .8 Branch Results Test Description Test Time Test Comments Results Result Comments Source COMP. METABOLIC PANEL (95261) 2022-05-06 22:42:55 Test Item Value Reference Range Interpretation Comme nts NA (test code = 9849502520) 137 mmol/L 135-145 K (test code = 8311834679) 3.2 mmol/L 3.5-5.0 L CL (test code = 9728994596) 100 mmol/L 98-108 CO2 TOTAL (test code = 5444687783) 23 mmol/L 23-31 AGAP (test code = 0669897525) 2-16 BUN (test code = 2624394514) 41 mg/dL 7-23 H GLUCOSE (test code = 9305702863) 98 mg/dL 70-110 CREATININE (test code = 1.55 mg/dL 0.50-1.04 H 0703952904) TOTAL BILI (test code = 0.8 mg/dL 0.1-1.4 6626544406) CALCIUM (test code = 6879567293) 8.3 mg/dL 8.6-10.6 L T PROTEIN (test code = 5259910894) 6.9 g/dL 6.3-8.2 ALBUMIN (test code = 2906738570) 3.9 g/dL 3.5-5.0 ALK PHOS (test code = 3661091760) 89 U/L 34-122 ALTv (test code = 1742-6) 101 U/L 5-35 H AST(SGOT) (test code = 9708584485) 203 U/L 13-40 H eGFR (test code = 0156127293) mL/min/1.73m2 KYLE (test code = KYLE) Association [...] tests). Lab Interpretation (test code = Abnormal 22180-3) [facility] WITH [id number] 22:33:52 Test Item Value Reference Range Interpretation Comments WBC (test code = See_Comment L [Automated 8190-2) message] The sy stem which generated this result transmitted reference range : 4.30 - 11.10 10*3/?L. The reference range was not used to interpret this result as normal/abnormal . RBC (test code = See_Comment [Automated 049-8) message] The sy stem which [...] RDW-SD (test code = 46.3 fL 39.0-49.9 22714-3) RDW-CV (test code = 13.5 % 12.0-15.5 788-0) PLT (test code = See_Comment L [Automated 777-3) message] The sy stem which generated this result transmitted reference range : 166 - 358 10*3/ ?L. The reference r abbey was not used to interpret this result as normal/abnormal . MPV (test code = 9.5 fL 9.5-12.9 83853-3) NRBC/100 WBC (test See_Comment [Automat ed code = 9678361352) message] The system which generated this result transmitted reference range : 0.0 - 10.0 /100 WBCs. The refer ence range was not u sed to interpret th is result as normal/abnormal . NRBC x10^3 (test code See_Comment [Auto mated = 7060825945) message] The s ystem which generated this result transmitted reference range : 10*3/?L. The reference range was not used to interpret this result as normal/abnormal . GRAN MAT (NEUT) % 58.3 % (test code = 770-8) IMM GRAN % (test code 0.80 % = 6365963682) LYMPH % (test code = 28.1 % 736-9) MONO % (test code = 12.0 % 5905-5) EOS % (test code = 0.5 % 713-8) BASO % (test code = 0.3 % 706-2) GRAN MAT x10^3(ANC) 2.29 10*3/uL 1.88-7.09 (test code = 0263386503) IMM GRAN x10^3 (test 0.03 10*3/uL 0.00-0.06 code = 1346627361) LYMPH x10^3 (test code 1.10 10*3/uL 1.32-3.29 L = 731-0) MONO x10^3 (test code 0.47 10*3/uL 0.33-0.92 = 742-7) EOS x10^3 (test code = 0.03-0.39 L 711-2) BASO x10^3 (test code 0.01-0.07 = 704-7) Lab Interpretation Abnormal (test code = 72436-4) [facility] METABOLIC PANEL (NA, K, CL, CO2, GLUCOSE, BUN, CREATININE, CA)2022-04-22 21:43:42 Test Item Value Reference Range Interpretation Comments NA (test code = 142 mmol/L 135-145 0760769387) K (test code = 3.5 mmol/L 3.5-5.0 5231155496) CL (test code = 106 mmol/L 98-108 2286163670) CO2 TOTAL (test code = 26 mmol/L 23-31 4036916630) AGAP (test code = 2-16 5785520603) BUN (test code = 29 mg/dL 7-23 H 5975967994) GLUCOSE (test code = 84 mg/dL 70-110 6767116110) CREATININE (test code = 1.16 mg/dL 0.50-1.04 H 7001134186) CALCIUM (test code = 8.2 mg/dL 8.6-10.6 L 1824783499) eGFR (test code = mL/min/1.73m2 9290351263) KYLE (test code = KYLE) Association of [...] tests). Lab Interpretation Abnormal (test code = 27442-3) [facility] WITH [id number] 21:33:01 Test Item Value Reference Range Interpretation [...] (test code = 50.7 fL 39.0-49.9 H 17034-6) RDW-CV (test code = 14.6 % 12.0-15.5 788-0) PLT (test code = See_Comment L [Automated 777-3) message] The sy stem which generated this result transmitted reference range : 166 - 358 10*3/ ?L. The reference r abbey was not used to interpret this result as normal/abnormal . MPV (test code = 8.8 fL 9.5-12.9 L 98079-1) NRBC/100 WBC (test See_Comment [Automat ed code = 7781453162) message] The system which generated this result transmitted reference range : 0.0 - 10.0 /100 WBCs. The refer ence range was not u sed to interpret th is result as normal/abnormal . NRBC x10^3 (test code See_Comment [Auto mated = 7601757745) message] The s ystem which generated this result transmitted reference range : 10*3/?L. The reference range was not used to interpret this result as normal/abnormal . GRAN MAT (NEUT) % 70.9 % (test code = 770-8) IMM GRAN % (test code 0.50 % = 9072541085) LYMPH % (test code = 17.4 % 736-9) MONO % (test code = 9.0 % 5905-5) EOS % (test code = 1.7 % 713-8) BASO % (test code = 0.5 % 706-2) GRAN MAT x10^3(ANC) 4.60 10*3/uL 1.88-7.09 (test code = 2474207372) IMM GRAN x10^3 (test 0.03 10*3/uL 0.00-0.06 code = 6600245788) LYMPH x10^3 (test code 1.13 10*3/uL 1.32-3.29 L = 731-0) MONO x10^3 (test code 0.58 10*3/uL 0.33-0.92 = 742-7) EOS x10^3 (test code = 0.11 10*3/uL 0.03-0.39 711-2) BASO x10^3 (test code 0.03 10*3/uL 0.01-0.07 = 704-7) Lab Interpretation Abnormal (test code = 65775-7) [facility] [id number] 06:01:07 Test Item Value Reference Range Interpretation Comments Blood Culture-Aerobic No organisms No growth Previo us (test code = 14609-2) isolated prelim inary verified result was Culture [...] Culture-Anaerobic isolated preliminar y (test code = 79656-0) verifi ed result was Culture In Progress [...] CDT Lab Interpretation Normal (test code = 02701-4) [facility] CULTURE [id number] 06:01:07 Test Item Value Reference Range Interpretation Comments Blood Culture-Aerobic No organisms No growth Previo us (test code = 38567-3) isolated prelim inary verified result was Culture [...] Culture-Anaerobic isolated preliminar y (test code = 96718-9) verifi ed result was Culture In Progress [...] CDT Lab Interpretation Normal (test code = 19809-6) [facility] [id number] 06:01:07 Test Item Value Reference Range Interpretation Comments Blood Culture-Aerobic No organisms No growth Previo us (test code = 73763-6) isolated prelim inary verified result was Culture [...] Culture-Anaerobic isolated preliminar y (test code = 93178-4) verifi ed result was Culture In Progress [...] CDT Lab Interpretation Normal (test code = 37133-9) [id number] 10:49:10 Test Item Value Reference Range Interpretation Comments NT-proBNP (test code 2660 pg/mL See_Comment H [Autom ated = 0797113142) message] The system which generated this result transmitted reference range : <=125. The reference range was not used to interpret this result as normal/abnormal . KYLE (test code = KYLE) Biotin has been reported to cause a negative bias, interpret results relative to patient's use of biotin. Lab Interpretation Abnormal (test code = 58257-1) [facility]-TERMIN[facility] [id number] 10:49:10 Test Item Value Reference Range Interpretation Comments NT-proBNP (test code 2660 pg/mL See_Comment H [Autom ated = 0734740997) message] The system which generated this result transmitted reference range : <=125. The reference range was not used to interpret this result as normal/abnormal . KYLE (test code = KYLE) Biotin has been reported to cause a negative bias, interpret results relative to patient's use of biotin. Lab Interpretation Abnormal (test code = 18142-9) [facility] METABOLIC PANEL (NA, K, CL, CO2, GLUCOSE, BUN, CREATININE, CA)2022-02-15 10:44:07 Test Item Value Reference Range Interpretation Comments NA (test code = 134 mmol/L 135-145 L 1980236500) K (test code = 3.2 mmol/L 3.5-5 L 5907580094) CL (test code = 98 mmol/L 98-108 5351317837) CO2 TOTAL (test code = 27 mmol/L 23-31 4983190156) AGAP (test code = 2-16 0860315776) BUN (test code = 19 mg/dL 7-23 1738780942) GLUCOSE (test code = 102 mg/dL 70-110 1169067605) CREATININE (test code = 0.95 mg/dL 0.5-1.04 1354551274) CALCIUM (test code = 8.5 mg/dL 8.6-10.6 L 8401180733) eGFR (test code = mL/min/1.73m2 4383170363) KYLE (test code = KYLE) Association of [...] tests). Lab Interpretation Abnormal (test code = 15746-0) [facility] 10:44:07 Test Item Value Reference Range Interpretation Comments MAGNESIUM (test code = 2991248074) 1.8 mg/dL 1.7-2.4 Lab Interpretation (test code = Normal 01579-9) [facility]2022-09-26 10:44:07 Test Item Value Reference Range Interpretation Comments MAGNESIUM (test code = 3256057801) 1.8 mg/dL 1.7-2.4 Lab Interpretation (test code = Normal 66774-6) [facility] METABOLIC PANEL (NA, K, CL, CO2, GLUCOSE, BUN, CREATININE, CA)2022-02-15 10:44:07 Test Item Value Reference Range Interpretation Comments NA (test code = 134 mmol/L 135-145 L 4826623575) K (test code = 3.2 mmol/L 3.5-5.0 L 7849699741) CL (test code = 98 mmol/L 98-108 6601301247) CO2 TOTAL (test code = 27 mmol/L 23-31 4756929424) AGAP (test code = 2-16 9754186817) BUN (test code = 19 mg/dL 7-23 6815457338) GLUCOSE (test code = 102 mg/dL 70-110 3953513533) CREATININE (test code = 0.95 mg/dL 0.50-1.04 8902256523) CALCIUM (test code = 8.5 mg/dL 8.6-10.6 L 5026586625) eGFR (test code = mL/min/1.73m2 2766570024) KYLE (test code = KYLE) Association of [...] tests). Lab Interpretation Abnormal (test code = 42508-0) [facility] WITH [id number] 10:12:06 Test Item Value Reference Range Interpretation Comments WBC (test code = See_Comment L [Automated 2990-2) message] The sy stem which generated this [...] RDW-SD (test code = 47.8 fL 39-49.9 47641-6) RDW-CV (test code = 15.2 % 12-15.5 788-0) PLT (test code = See_Comment L [Automated 777-3) message] The sy stem which generated this result transmitted reference range : 166 - 358 10*3/ ?L. The reference r abbey was not used to interpret this result as normal/abnormal . MPV (test code = 8.9 fL 9.5-12.9 L 90731-4) NRBC/100 WBC (test See_Comment [Automat ed code = 8982570612) message] The system which generated this result transmitted reference range : 0.0 - 10.0 /100 WBCs. The refer ence range was not u sed to interpret th is result as normal/abnormal . NRBC x10^3 (test code See_Comment [Auto mated = 5928642183) message] The s ystem which generated this result transmitted reference range : 10*3/?L. The reference range was not used to interpret this result as normal/abnormal . GRAN MAT (NEUT) % 65.9 % (test code = 770-8) IMM GRAN % (test code 0.30 % = 4721263008) LYMPH % (test code = 21.0 % 736-9) MONO % (test code = 10.1 % 5905-5) EOS % (test code = 2.4 % 713-8) BASO % (test code = 0.3 % 706-2) GRAN MAT x10^3(ANC) 2.49 10*3/uL 1.88-7.09 (test code = 7388633372) IMM GRAN x10^3 (test 0-0.06 code = 6344341760) LYMPH x10^3 (test code 0.79 10*3/uL 1.32-3.29 L = 731-0) MONO x10^3 (test code 0.38 10*3/uL 0.33-0.92 = 742-7) EOS x10^3 (test code = 0.09 10*3/uL 0.03-0.39 711-2) BASO x10^3 (test code 0.01-0.07 = 704-7) Lab Interpretation Abnormal (test code = 38915-6) [facility] WITH [id number] 10:12:06 Test Item Value Reference Range Interpretation [...] RDW-SD (test code = 47.8 fL 39.0-49.9 16336-4) RDW-CV (test code = 15.2 % 12.0-15.5 788-0) PLT (test code = See_Comment L [Automated 777-3) message] The sy stem which generated this result transmitted reference range : 166 - 358 10*3/ ?L. The reference r abbey was not used to interpret this result as normal/abnormal . MPV (test code = 8.9 fL 9.5-12.9 L 87183-0) NRBC/100 WBC (test See_Comment [Automat ed code = 0055128052) message] The system which generated this result transmitted reference range : 0.0 - 10.0 /100 WBCs. The refer ence range was not u sed to interpret th is result as normal/abnormal . NRBC x10^3 (test code See_Comment [Auto mated = 0796552638) message] The s ystem which generated this result transmitted reference range : 10*3/?L. The reference range was not used to interpret this result as normal/abnormal . GRAN MAT (NEUT) % 65.9 % (test code = 770-8) IMM GRAN % (test code 0.30 % = 3317121177) LYMPH % (test code = 21.0 % 736-9) MONO % (test code = 10.1 % 5905-5) EOS % (test code = 2.4 % 713-8) BASO % (test code = 0.3 % 706-2) GRAN MAT x10^3(ANC) 2.49 10*3/uL 1.88-7.09 (test code = 5052617714) IMM GRAN x10^3 (test 0.00-0.06 code = 5849692002) LYMPH x10^3 (test code 0.79 10*3/uL 1.32-3.29 L = 731-0) MONO x10^3 (test code 0.38 10*3/uL 0.33-0.92 = 742-7) EOS x10^3 (test code = 0.09 10*3/uL 0.03-0.39 711-2) BASO x10^3 (test code 0.01-0.07 = 704-7) Lab Interpretation Abnormal (test code = 56531-7) [facility] WITH [id number] 11:18:28 Test Item Value Reference Range Interpretation Comments WBC (test code = See_Comment L [Automated 2490-2) message] The sy stem which generated this result transmitted reference range : 4.30 - 11.10 10*3/?L. The reference range was not used to interpret this result as normal/abnormal . RBC (test code = See_Comment L [Automated 359-8) message] The sy stem which generated this [...] RDW-SD (test code = 49.5 fL 39-49.9 80842-4) RDW-CV (test code = 15.5 % 12-15.5 788-0) PLT (test code = See_Comment L [Automated 777-3) message] The sy stem which generated this result transmitted reference range : 166 - 358 10*3/ ?L. The reference r abbey was not used to interpret this result as normal/abnormal . MPV (test code = 11.4 fL 9.5-12.9 83422-0) IPF % (test code = 8.7 % 1.3-7.7 H Platelet count 0496290782) measured by fluorescence method. NRBC/100 WBC (test See_Comment [Automat ed code = 7239122395) message] The system which generated this result transmitted reference range : 0.0 - 10.0 /100 WBCs. The refer ence range was not u sed to interpret th is result as normal/abnormal . NRBC x10^3 (test code See_Comment [Auto mated = 0921698251) message] The s ystem which generated this result transmitted reference range : 10*3/?L. The reference range was not used to interpret this result as normal/abnormal . GRAN MAT (NEUT) % 62.0 % (test code = 770-8) IMM GRAN % (test code 0.80 % = 2494492445) LYMPH % (test code = 22.2 % 736-9) MONO % (test code = 9.6 % 5905-5) EOS % (test code = 5.1 % 713-8) BASO % (test code = 0.3 % 706-2) GRAN MAT x10^3(ANC) 2.21 10*3/uL 1.88-7.09 (test code = 4012508571) IMM GRAN x10^3 (test 0.03 10*3/uL 0-0.06 code = 3190482692) LYMPH x10^3 (test code 0.79 10*3/uL 1.32-3.29 L = 731-0) MONO x10^3 (test code 0.34 10*3/uL 0.33-0.92 = 742-7) EOS x10^3 (test code = 0.18 10*3/uL 0.03-0.39 711-2) BASO x10^3 (test code 0.01-0.07 = 704-7) POLYCHROMASIA (test 2+ See_Comment [Automa arpit code = 02862-8) message] The system which generated this result [...] . Lab Interpretation Abnormal (test code = 77524-2) [facility] (NA, K, CL, CO2, GLUCOSE, BUN, CREATININE, CA)2022-02-13 10:39:07 Test Item Value Reference Range Interpretation Comments NA (test code = 136 mmol/L 135-145 0236814257) K (test code = 4.1 mmol/L 3.5-5 1029338261) CL (test code = 102 mmol/L 98-108 8764175873) CO2 TOTAL (test code = 27 mmol/L 23-31 3040733985) AGAP (test code = 2-16 6111970434) BUN (test code = 22 mg/dL 7-23 3562676918) GLUCOSE (test code = 94 mg/dL 70-110 7146710802) CREATININE (test code = 0.94 mg/dL 0.5-1.04 9426046882) CALCIUM (test code = 8.1 mg/dL 8.6-10.6 L 8339253286) eGFR (test code = mL/min/1.73m2 3525245922) KYLE (test code = KYLE) Association of [...] tests). Lab Interpretation Abnormal (test code = 81495-4) [facility]12 01:50:10 Test Item Value Reference Range Interpretation Comments Height (test code = in 3978190976) Weight (test code = lbs 8331359359) Systolic BP (test code mmHg = 9039432721) Diastolic BP (test code mmHg = 2049523864) Heart Rate (test code = bpm 0905700682) BSA (test code = 1.85 m2 3826302844) IVS (test code = 1.22 cm 8993285907) Interventricular Septum 1.22 cm Diastolic Thickness by 2D (test code = 2952801) LVIDD (test code = 5.00 cm 9612416876) Left Ventricular End 117.9 mL Diastolic Volume by Teichholz Method (test code = 6533822) LVPWD (test code = 1.22 cm 1352461014) PW (test code = 1.22 cm 0.6-1.6 8587842051) EF(Teich) (test code = 74.60 % 1504223556) LVIDS (test code = 2.80 cm 8694405707) Left Ventricular End 29.9 mL Systolic Volume by Teichholz Method (test code = 9390460) FS (test code = 44 % 8700461778) EF - 2D (test code = 74.60 % 30592946) LVOT diameter (test 2.16 cm code = 9604932051) LVOT area (test code = 3.70 cm2 4102415230) Ao root diam (test code 3.40 cm = 0711990410) Aortic root (test code 3.4 cm = 3443401379) Ao root annulus (test 3.4 cm code = 2814321858) LA size (test code = 3.4 cm 0524579227) TR Peak Spencer (test code 330.0 cm/s = 5859677464) Triscuspid Valve mmHg Regurgitation Peak Gradient (test code = 5060342913) PV REGURGITATION PEAK mmHg GRADIENT (test code = 4516736454) PI dec slope (test code 137.20 cm/s2 = 2304361872) LAV(MOD-sp4) (test code 102.90 mL = 3583296535) MV Peak E Spencer (test 84.1 cm/s code = 3984447967) MV Peak A Spencer (test 40.1 cm/s code = 4019965765) E/A ratio (test code = ratio 4233732513) MV valve area p 1/2 3.70 cm2 method (test code = 9558076989) MV dec slope (test code 413.00 cm/s2 = 3541091396) MV P1/2t max spencer (test 83.70 cm/s code = 4025750244) MV Prop V (test code = 41.80 cm/s 0016622463) Tapse (test code = 1.83 cm 1875953719) LVOT stroke volume 96.90 cm3 (test code = 8838947449) LVOT peak spencer (test 125.5 cm/s code = 7007796048) LVOT mn grad (test code mmHg = 3282083893) AV LVOT peak gradient mmHg (test code = 0416407874) LVOT peak VTI (test 26.4 cm code = 8715544022) LV V1 mean (test code = 78.10 cm/s 7827350132) Aortic valve mean 103.7 cm/s velocity (test code = 9287770823) Ao peak spencer (test code 165.6 cm/s = 9109154011) Ao VTI (test code = 37.2 cm 9814858860) AV area by cont VTI 2.6 cm2 (test code = 3307812955) AV area peak spencer (test 2.8 cm2 code = 6200765708) Ao max PG (test code = 11.00 mm[Hg] 8399884627) AV peak gradient (test mmHg code = 7870339041) AV valve area (test 2.60 cm2 code = 6101602331) AV mean gradient (test mmHg code = 5259996287) LA Volume Index (BP) 55.2 mL/m2 (test code = 5714184292) LA volume (BP) (test 102.1 mL code = 5971096575) LAV(MOD-sp2) (test code 86.10 mL = 9009303953) A2C EF (test code = 61.20 % 7946351873) EF(sp2-el) (test code = 61.60 % 3361147179) SV(MOD-sp2) (test code 47.10 mL = 8451500667) LV Diastolic Volume 70.7 mL (BP) (test code = 4739409217) A4C EF (test code = 53.00 % 6471306549) EF(MOD-bp) (test code = 56.70 % 5121390233) EF(sp4-el) (test code = 53.90 % 1370914800) LV Systolic Volume (BP) 30.6 mL (test code = 8602797079) SV(MOD-bp) (test code = 40.10 mL 3439497581) SV(MOD-sp4) (test code 32.40 mL = 8733768242) SV(sp4-el) (test code = 33.10 mL 6194159834) EF (test code = 2995372752) Left Ventricular Stroke 40.1 mL Volume by 2-D Biplane-MOD (test code = 9479348) LV Diastolic Volume 38.2 mL/m2 Index (BP) (test code = 7471076789) LV Systolic Volume 16.5 mL/m2 Index (BP) (test code = 3183747903) Radiology Study observation (narrative) (test code = 29741-6) KYLE (test code = KYLE) ?Left?Ventricle: Left [...] wall motion is normal. [facility] [id number] 05:45:01 Test Item Value Reference Interpretation Comments Range TROPONIN I (test See_Comment [Automated code = 3995823070) message] The system which generated this result [...] biotin. Lab Interpretation Normal (test code = 40083-5) [facility] [id number] 05:41:40 Test Item Value Reference Range Interpretation Comments NT-proBNP (test code 4250 pg/mL See_Comment H [Autom ated = 3208550578) message] The system which generated this result transmitted reference range : <=125. The reference range was not used to interpret this result as normal/abnormal . KYLE (test code = KYLE) Biotin has been reported to cause a negative bias, interpret results relative to patient's use of biotin. Lab Interpretation Abnormal (test code = 70743-7) [facility] [id number] 05:35:21 Test Item Value Reference Range Interpretation Comments APTT Patient (test See_Comment [Automat ed code = 3173-2) message] The system which generated this result transmitted reference range : 23 - 38 Seconds . The reference range was not used to interpr et this result as normal/abnormal . KYLE (test code = KYLE) The [facility] patient population mean normal value for aPTT is 30 seconds. Lab Interpretation Normal (test code = 21657-5) [facility] [id number] 05:35:21 Test Item Value Reference Range Interpretation Comments APTT Patient (test See_Comment [Automat ed code = 3173-2) message] The system which generated this result transmitted reference range : 23 - 38 Seconds . The reference range was not used to interpr et this result as normal/abnormal . KYLE (test code = KYLE) The [facility] patient population mean normal value for aPTT is 30 seconds. Lab Interpretation Normal (test code = 72085-4) [facility] CenterPROT[facility] / [id number] 05:33:21 Test Item Value Reference Range Interpretation [...] tions. Lab Interpretation (test Normal code = 81649-5) [facility]OLIC PANEL (32195)2022-02-11 05:33:21 Test Item Value Reference Range Interpretation Comments NA (test code = 137 mmol/L 135-145 7598408522) K (test code = 4.3 mmol/L 3.5-5 5223986022) CL (test code = 103 mmol/L 98-108 5105825243) CO2 TOTAL (test code = 25 mmol/L 23-31 8847421834) AGAP (test code = 2-16 5503197509) BUN (test code = 19 mg/dL 7-23 2341568424) GLUCOSE (test code = 120 mg/dL 70-110 H 5470117666) CREATININE (test code = 1.15 mg/dL 0.5-1.04 H 5376596600) TOTAL BILI (test code = 0.9 mg/dL 0.1-1.1 4846205524) CALCIUM (test code = 8.9 mg/dL 8.6-10.6 6372570729) T PROTEIN (test code = 6.6 g/dL 6.3-8.2 2182847536) ALBUMIN (test code = 4.0 g/dL 3.5-5 5980979795) ALK PHOS (test code = 73 U/L 34-122 0082591308) ALTv (test code = 18 U/L 5-35 1742-6) AST(SGOT) (test code = 31 U/L 13-40 5819307116) eGFR (test code = mL/min/1.73m2 4158965846) KYLE (test code = KYLE) Association of [...] tests). Lab Interpretation Abnormal (test code = 24920-9) [facility]. METABOLIC PANEL (19374)2022-02-11 05:33:21 Test Item Value Reference Range Interpretation Comments NA (test code = 137 mmol/L 135-145 9974592945) K (test code = 4.3 mmol/L 3.5-5.0 2038522307) CL (test code = 103 mmol/L 98-108 2861020949) CO2 TOTAL (test code = 25 mmol/L 23-31 8963032511) AGAP (test code = 2-16 6971121015) BUN (test code = 19 mg/dL 7-23 5543248495) GLUCOSE (test code = 120 mg/dL 70-110 H 1891658428) CREATININE (test code = 1.15 mg/dL 0.50-1.04 H 5153625787) TOTAL BILI (test code = 0.9 mg/dL 0.1-1.0 4979216698) CALCIUM (test code = 8.9 mg/dL 8.6-10.6 8403513903) T PROTEIN (test code = 6.6 g/dL 6.3-8.2 0594476353) ALBUMIN (test code = 4.0 g/dL 3.5-5.0 4192018084) ALK PHOS (test code = 73 U/L 34-122 3846923522) ALTv (test code = 18 U/L 5-35 1742-6) AST(SGOT) (test code = 31 U/L 13-40 2464811335) eGFR (test code = mL/min/1.73m2 0595422890) KYLE (test code = KYLE) Association of [...] tests). Lab Interpretation Abnormal (test code = 97010-6) [facility] Center[facility] / [id number] 05:33:21 Test Item Value Reference Range Interpretation Comments PROTIME PATIENT (test See_Comment [Auto mated message] code = 5964-2) The system [employer] ich generated this result transmitted ref erence range: 12.0 - 1 4.7 Seconds. The re ference range was not u sed to interpret this result as normal/abnor mal. INR (test code = 6301-6) Nor mal INR <1.1; Warfarin Therap eutic range 2.0 to 3. 0 or 2.5 to 3.5, dep ending upon the indica tions. Lab Interpretation (test Normal code = 79470-0) [facility] Center[facility] WITH [id number] 05:14:37 Test Item Value Reference Range Interpretation Comments WBC (test code = See_Comment [Automated 6690-2) message] The sy stem which generated this result transmitted reference range : 4.30 - 11.10 10*3/?L. The reference range was not used to interpret this result as normal/abnormal . RBC (test code = See_Comment L [Automated 449-8) message] The sy stem which generated this [...] RDW-SD (test code = 47.9 fL 39-49.9 88636-2) RDW-CV (test code = 14.9 % 12-15.5 788-0) PLT (test code = See_Comment L [Automated 777-3) message] The sy stem which generated this result transmitted reference range : 166 - 358 10*3/ ?L. The reference r abbey was not used to interpret this result as normal/abnormal . MPV (test code = 9.1 fL 9.5-12.9 L 74457-9) NRBC/100 WBC (test See_Comment [Automat ed code = 3870990235) message] The system which generated this result transmitted reference range : 0.0 - 10.0 /100 WBCs. The refer ence range was not u sed to interpret th is result as normal/abnormal . NRBC x10^3 (test code See_Comment [Auto mated = 2372995430) message] The s ystem which generated this result transmitted reference range : 10*3/?L. The reference range was not used to interpret this result as normal/abnormal . GRAN MAT (NEUT) % 78.5 % (test code = 770-8) IMM GRAN % (test code 0.20 % = 4605946259) LYMPH % (test code = 11.6 % 736-9) MONO % (test code = 8.4 % 5905-5) EOS % (test code = 1.1 % 713-8) BASO % (test code = 0.2 % 706-2) GRAN MAT x10^3(ANC) 3.45 10*3/uL 1.88-7.09 (test code = 3778162259) IMM GRAN x10^3 (test 0-0.06 code = 5348475183) LYMPH x10^3 (test code 0.51 10*3/uL 1.32-3.29 L = 731-0) MONO x10^3 (test code 0.37 10*3/uL 0.33-0.92 = 742-7) EOS x10^3 (test code = 0.05 10*3/uL 0.03-0.39 711-2) BASO x10^3 (test code 0.01-0.07 = 704-7) Lab Interpretation Abnormal (test code = 85654-0) [facility] Coronavirus 2019 [id number] 18:08:00 Test Item Value Reference Range Interpretation [...] det ection of nucleic acids f rom utyCMQI-XzM-6 v irus and diagnosis of SA RS-CoV-2 virusinfection. It is an Emergency Use Authorization ( EUA) testauthorized by the U.S. FDA. BASIC METABOLIC [id number] 09:37:00 Test Item Value Reference Range Interpretation [...] = 9.0 mg/dL 8.0-10.5 N CA) PROTHROMBIN [id number] 09:32:00 Test Item Value Reference Range Interpretation [...] (to prevent recurrent infar ct). 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 [facility] - XR CHEST 1 [id number] 00:00:00 [facility] 1955 Sex: F FAX: Carmenza Kelly [phone] Register: St: ADM FAX: Mike Scales MD [phone] FAX: Bahman Chopra [phone] Name: MARJAN FLEMING [facility] : 1955 Age/S: 66/F [address] [place] [address] Unit #: [id number] Loc: [place] [address] Phys: Bahman Chopra [facility] Acct: [id number] Dis Date: Status: ADM IN PHONE #: [phone] Exam Date: 06/17/2021 1320 FAX #: [phone] Reason: WATCHMAN EXAMS: CPT CODE: [id number] XR CHEST 1 V 66227 PROCEDURE INFORMATION: Exam: XR Chest Exam date [...] Chopra Technologist: RT Taylor(R) Trnbob Date/Time/By: 06/17/2021 (2900) : By: Susanna Orig Print D/T: S: 06/17/2021 (1166) PAGE 1 Signed ReportCOVID 19 Asymptomatic IH [...] cleare d or approved; the parish asif hasnoelleen authori zed by FDA under an Em ergency Use Authorizati on(EUA) for use by labo ratories certified under the CLIA thatmeet the requirements to perform moderate, high or waivedcomplexit y tests. BASIC METABOLIC [id number] 11:37:00 Test Item Value Reference Range Interpretation [...] code = 9.0 mg/dL 8.0-10.5 N CA) [id number] 11:37:00 Test Item Value Reference Range Interpretation Comments PREALBUMIN (test code = PREALB) 24.3 mg/dL 16.0-40.0 N PROTHROMBIN MHYZ9026-61-91 11:03:00 Test Item Value Reference Range Interpretation [...] (to prevent recurrent infar ct). CBC W/AUTO BFPR1579-82-07 10:59:00 Test Item Value Reference Range Interpretation [...] 0.0-0.1 N NRBC#) - XR CHEST 2 [id number] 00:00:00 [facility] : 1955 Sex: F FAX: Carmenza Kelly [phone] Register: St: PRE FAX: Mike Scales MD [phone] Name: MARJAN FLEMING [facility] : 1955 Age/S: 66/F [address] [place] [address] Unit #: [id number] Loc: [place], [place] [address]Lukp: Mike Lund MD Acct: [id number] Dis Date: Status: PRE SDC PHONE #: [phone] Exam Date: 06/16/2021 1120 FAX #: [phone] Reason: PREOP EXAMS: CPT CODE: [id number] XR CHEST 2 V 04545 PROCEDURE INFORMATION: Exam: XR Chest Exam date [...] MD Technologist: RT Andree(R) Trnscrd Date/Time/By: 06/16/2021 (9830) : By: [email or web address] Orig Print D/T: S: 06/16/2021 (7048) PAGE 1 Signed ReportGastrointestinal lvqvs3849-64-18 04:35:05 Test Item Value Reference Interpretation Comments [...] Rotavirus PCR (test Not Detected code = 0099482) Salmonella PCR (test Not Detected code = [...] PCR Not Detected (test code = 7124) [facility] vuginzf0207-06-01 19:30:47 Test Item Value Reference Range Interpretation Comments Case number (test [id number] code = 2615916) Surgical pathology See link below for PDF report (test code = Lab Report 2255) Result status (test This is Supplemental code = 9760928) Report for [id number] [facility]2021-04-09 16:31:00 Test Item Value Reference Range Interpretation Comments POC Activated Clotting Time (test code 153 s = POC Activated Clotting Time) [facility]kgxjjpOFUUXDZLVC6143-44-22 16:31:00 Test Item Value Reference Range Interpretation Comments POC Activated Clotting Time (test code 153 s = POC Activated Clotting Time) [facility] AliceJknagutOWVPHSSDKC0464-86-50 16:31:00 Test Item Value Reference Range Interpretation Comments POC Activated Clotting Time (test code 153 s = POC Activated Clotting Time) [facility] AliceSkoiotiUEXMQVLVNF2461-65-49 16:31:00 Test Item Value Reference Range Interpretation Comments POC Activated Clotting Time (test code 153 s = POC Activated Clotting Time) [facility] AliceHhlvadiIBASOCBYPV1267-11-11 16:31:00 Test Item Value Reference Range Interpretation Comments POC Activated Clotting Time (test code 153 s = POC Activated Clotting Time) [facility] AliceQjiekzjKLLMLHNBNS6195-28-17 16:31:00 Test Item Value Reference Range Interpretation Comments POC Activated Clotting Time (test code 153 s = POC Activated Clotting Time) [facility] AliceFnlhcvrRUWYWZHNZK7087-25-78 16:31:00 Test Item Value Reference Range Interpretation Comments POC Activated Clotting Time (test code 153 s = POC Activated Clotting Time) [facility] AliceLdnaggiDSFONCLFKE1907-63-43 14:37:00 Test Item Value Reference Range Interpretation Comments POC Activated Clotting Time (test code 454 s = POC Activated Clotting Time) [facility] AliceCiarsesJHAFVFQHGK9377-23-38 14:37:00 Test Item Value Reference Range Interpretation Comments POC Activated Clotting Time (test code 454 s = POC Activated Clotting Time) [facility] AliceUgwzlhuFJJQAJOUQI7566-82-96 14:37:00 Test Item Value Reference Range Interpretation Comments POC Activated Clotting Time (test code 454 s = POC Activated Clotting Time) [facility] AliceJqmafdsKSRVNFQGFU5609-42-43 14:37:00 Test Item Value Reference Range Interpretation Comments POC Activated Clotting Time (test code 454 s = POC Activated Clotting Time) [facility] AliceGiwvlcvTKFMSSHRJA8728-21-94 14:37:00 Test Item Value Reference Range Interpretation Comments POC Activated Clotting Time (test code 454 s = POC Activated Clotting Time) [facility] AliceZjqfbekPOSQSIEQKQ2433-59-90 14:37:00 Test Item Value Reference Range Interpretation Comments POC Activated Clotting Time (test code 454 s = POC Activated Clotting Time) [facility] AliceNumtmgkXTHTCPIYHP6942-15-45 14:37:00 Test Item Value Reference Range Interpretation Comments POC Activated Clotting Time (test code 454 s = POC Activated Clotting Time) [facility] AliceKfiqbwmHSZHMKUXJB7740-96-47 14:13:00 Test Item Value Reference Range Interpretation Comments POC Activated Clotting Time (test code 354 s = POC Activated Clotting Time) [facility] AliceKldplsbCOMMIENLUV9933-96-26 14:13:00 Test Item Value Reference Range Interpretation Comments POC Activated Clotting Time (test code 354 s = POC Activated Clotting Time) [facility] AliceDkrrtrsYMILIRHBRM3833-18-34 14:13:00 Test Item Value Reference Range Interpretation Comments POC Activated Clotting Time (test code 354 s = POC Activated Clotting Time) [facility] AliceLrbhwraDRORZFOLAX9783-16-42 14:13:00 Test Item Value Reference Range Interpretation Comments POC Activated Clotting Time (test code 354 s = POC Activated Clotting Time) [facility] AliceJvwjypzLBVULNOHNO0068-25-87 14:13:00 Test Item Value Reference Range Interpretation Comments POC Activated Clotting Time (test code 354 s = POC Activated Clotting Time) [facility] AliceLkyzqwiJKEKQVORYB6334-07-14 14:13:00 Test Item Value Reference Range Interpretation Comments POC Activated Clotting Time (test code 354 s = POC Activated Clotting Time) [place] 910011-04-09 14:13:00 Test Item Value Reference Range Interpretation Comments POC Activated Clotting Time (test code 354 s = POC Activated Clotting Time) [facility] BANK BMRJFVB5667-21-89 10:37:00Negative (08/29/20 5:37 AM) [facility] HSMBX0870-54-41 10:37:20108Bbaljagm HermannCHEM PANEL 2020-08-29 10:37:0028[facility]annCHE[facility] AYGCW6674-91-88 10:37:001.01[facility]annCHE[facility] CEQIM5928-30-23 10:37:60846Jorldnkv [facility]annCHEM AZQCW1616-17-86 10:37:003.8[facility]annCHE[facility] IFMUR2805-66-85 10:37:38372Kfgklfra [facility]annCHE[facility] ASNXD4343-29-47 10:37:0028[facility]annCHE[facility] APTRX7363-46-45 10:37:009.8 [facility] LNSVU9776-56-29 10:37:0011.8[facility]annCHEM PANEL 2020-08-29 10:37:0059[facility]annCHE[facility] SZUQQ9722-52-77 10:37:002.9[facility] PgnoaqbREGKYKNVPS5772-04-12 10:37:006.8[facility] EncgxthOKYHWOEYBE8352-24-38 10:37:004.47[facility] FmqavprDOVEWNGVPH8651-81-44 10:37:0010.6[facility] YCGXOBOMQK3643-33-57 10:37:0034.0[facility] IxudipdBUATBTJNYF2610-53-85 10:37:00 76.1[facility] OwbneagRMFNBGQZOL6309-55-89 10:37:00 Test Item Value Reference Range Interpretation Comments MCH (test code = MCH) 23.8 pg 27.0-31.0 [facility] SeeeihhRQLKZQMAFV3414-19-37 10:37:0031.3[facility]annHEMATOLOGY 2020-08-29 10:37:0018.2[facility] KcvrppbZZFRAUSWOG3073-71-03 10:37:18034Rqpobfqs FpnumjfPHOROCZOIM3945-37-60 10:37:007.5[facility] UrzbrdwREFEIFEYJV1237-38-78 10:37:00 Test Item Value Reference Range Interpretation Comments PT (test code = PT) 12.8 s 12.0-14.7 [facility] BhcmtacYERRLFUKRS5495-63-92 10:37:00 Test Item Value Reference Range Interpretation Comments INR (test code = INR) 0.97 1 0.85-1.17 [facility] VmmsrpuODKMDQWHRQ7279-65-17 10:37:00 Test Item Value Reference Range Interpretation Comments PTT (test code = PTT) 25.0 s 22.9-35.8 [facility] TleaoauPVASTQIKNU4434-63-10 10:37:0070.5[facility] HermannHEMATOLOGY 2020-08-29 10:37:0018.8[facility] XtluaraZDVBDKJVZP9654-74-99 10:37:009.5[facility] DonkgexZZZTVFAALE9261-89-82 10:37:000.9[facility] WwhihliJYVVKSODBM4366-23-11 10:37:000.3[facility] DjylsbeHXRSTPSYIG0939-69-97 10:37:004.8[facility] MRAWVUIHUJ8720-98-66 10:37:001.3[facility] ZtrmzebXMHISNCBEX7219-08-56 10:37:000.6 [facility] KjepzmjQLSXCNUKYH5872-93-63 10:37:000.1[facility]annHEMATOLOGY 2020-08-29 10:37:001+ *ABN*(08/29/20 5:37 AM)[facility] IdcfahcKNRXSETPDX2954-04-91 10:37:00Not Detected (08/29/20 5:37 AM)[facility]annBLOOD BANK RESULTS 2020-08-29 10:37:00Negative (08/29/20 5:37 AM)[facility]annCHEM NOKSN9957-65-61 10:37:39961Keezqocr HermannCHEM JGCTQ3380-00-80 10:37:0028[facility]annCHE[facility] RBEBN2450-47-41 10:37:001.01[facility]annCHEM DHMAK9543-85-67 10:37:51289 [facility] PMRKI1728-82-85 10:37:003.8[facility]annCHEM PANEL 2020-08-29 10:37:04080Tmfwomzn HermannCHEM KOFYQ0410-91-77 10:37:0028[facility]annCHE[facility] CVXXD4882-53-35 10:37:009.8[facility]annCHE[facility] BPBOS0335-73-28 10:37:0011.8[facility]annCHE[facility] YXHIA5750-34-94 10:37:0059[facility]annCHE[facility] ANYPA5885-94-23 10:37:002.9[facility] MwktsfiUYUWPJNUXC9561-79-27 10:37:006.8 [facility] LvzafsmNPZNZCDLNL3720-98-99 10:37:004.47[facility]annHEMATOLOGY 2020-08-29 10:37:0010.6[facility] JlytqgnRKPUOCQUCS7365-33-52 10:37:0034.0[facility] OkloptmWXHDHYHDMY1085-58-53 10:37:0076.1[facility] OofiblhWVEQOAZCUV9328-42-53 10:37:00 Test Item Value Reference Range Interpretation Comments MCH (test code = MCH) 23.8 pg 27.0-31.0 [facility] BihpkcoGHTJLLRVZB2190-97-81 10:37:0031.3[facility] HermannHEMATOLOGY 2020-08-29 10:37:0018.2[facility] KledpovVXDMUDIFAD4579-61-73 10:37:84553Zbxanlex UtxsytoQMUIIEJTCG4306-77-39 10:37:007.5[facility] NblpfyoCOZGKVXLRU9343-86-43 10:37:00 Test Item Value Reference Range Interpretation Comments PT (test code = PT) 12.8 s 12.0-14.7 [facility] VwbpuhgREUFFZYKDS0397-91-01 10:37:00 Test Item Value Reference Range Interpretation Comments INR (test code = INR) 0.97 1 0.85-1.17 [facility] SkwkbmfQNBEANENYI9006-63-72 10:37:00 Test Item Value Reference Range Interpretation Comments PTT (test code = PTT) 25.0 s 22.9-35.8 [facility] EeuzpufAROHGTKDWX4779-08-26 10:37:0070.5[facility]annHEMATOLOGY 2020-08-29 10:37:0018.8[facility] CwzfbsnSNJJKYSWES0037-30-10 10:37:009.5[facility] DsthwaqRDWTALPXON5520-46-26 10:37:000.9[facility] MdmwijaUZURVOUBUM0050-12-73 10:37:000.3[facility] GuamlzlLKLPKFAGSO5596-94-85 10:37:004.8[facility] FXMUYWPSGI2683-29-31 10:37:001.3[facility] HqiafgbSKZFSUOKRO3048-57-71 10:37:000.6 [facility] PkpmlvnTGFIKBFTDW0685-73-51 10:37:000.1[facility]annHEMATOLOGY 2020-08-29 10:37:001+ *ABN*(08/29/20 5:37 AM)[facility] SnlfnynSJIUBBRDQW2067-77-66 10:37:00Not Detected (08/29/20 5:37 AM)[facility]annBLOOD BANK RESULTS 2020-08-29 10:37:00Negative (08/29/20 5:37 AM)[facility]annCHEM KMBWN9332-21-83 10:37:01468Qtgfdcbe HermannCHEM HEZXV8747-39-98 10:37:0028[facility]annCHE[facility] QGZNO3451-47-16 10:37:001.01[facility]annCHE[facility] FKLPB4674-85-00 10:37:44973 [facility]CHE[facility] LTMGL2338-97-21 10:37:003.8[facility]annCHEM PANEL 2020-08-29 10:37:52391Itrjuajq HermannCHEM NDLRF3515-16-62 10:37:0028[facility]annCHEM AUFDD9496-37-40 10:37:009.8[facility]annCHEM BXCCB2187-35-89 10:37:0011.8[facility]annCHEM WOPRX7948-08-22 10:37:0059[facility]annCHEM DLVWL6219-30-39 10:37:002.9[facility] HvuhursZETLWLDAQX6833-69-14 10:37:006.8 [facility] EdrxkryAXSHSAOFRG1178-99-46 10:37:004.47[facility]annHEMATOLOGY 2020-08-29 10:37:0010.6[facility] MqksryqSBIHQHNAAY3072-04-57 10:37:0034.0[facility] GmemdwiYBRXAPAWLF9847-97-83 10:37:0076.1[facility] LdshtkcRGMCZHIUEV5487-74-59 10:37:00 Test Item Value Reference Range Interpretation Comments MCH (test code = MCH) 23.8 pg 27.0-31.0 [facility] OdxkbrvEHHQUSGXHA3970-62-82 10:37:0031.3[facility]annHEMATOLOGY 2020-08-29 10:37:0018.2[facility] OqbbideVSWHSTJKTV4679-46-09 10:37:29342Vkfqrjsh YcmwsazAYYGUMRWRD4232-39-83 10:37:007.5[facility] JcyxbteTAMEIFOLRV1771-83-41 10:37:00 Test Item Value Reference Range Interpretation Comments PT (test code = PT) 12.8 s 12.0-14.7 [facility] VqtdllgNNEJFWIFSG8639-33-89 10:37:00 Test Item Value Reference Range Interpretation Comments INR (test code = INR) 0.97 1 0.85-1.17 [facility] CsknfupHIRPIBABWG1560-74-33 10:37:00 Test Item Value Reference Range Interpretation Comments PTT (test code = PTT) 25.0 s 22.9-35.8 [facility] FgizesdQYZHQYYBFR4526-19-69 10:37:0070.5[facility] HermannHEMATOLOGY 2020-08-29 10:37:0018.8[facility] TahqakyQYPZQEHIRV0972-74-55 10:37:009.5[facility] DcfnerlHQLENSXNLV8325-59-49 10:37:000.9[facility] ExwmwrvPPGXCIHLXC3245-51-38 10:37:000.3[facility] SrdugwiMQURAAXUHE5180-66-01 10:37:004.8[facility] HIFNFWNNOC5456-87-58 10:37:001.3[facility] NvpnlquJHNWNTZWHC3931-08-49 10:37:000.6 [facility] NkawbnuOMVERHUNZX5995-70-66 10:37:000.1[facility] HermannHEMATOLOGY 2020-08-29 10:37:001+ *ABN*(08/29/20 5:37 AM)[facility] KmmdqfiGVEJITFWMH2822-06-65 10:37:00Not Detected (08/29/20 5:37 AM)[facility] HermannBLOOD BANK RESULTS 2020-08-29 10:37:00Negative (08/29/20 5:37 AM)[facility]annCHEM QHLJR9610-53-91 10:37:67046Eierfeii HermannCHEM NHMIP6706-64-44 10:37:0028[facility]annCHEM VLGHU3119-80-36 10:37:001.01[facility]annCHEM BJSIE7896-25-93 10:37:54387 [facility]annCHE[facility] TUPIT1898-11-80 10:37:003.8[facility] HermannCHEM PANEL 2020-08-29 10:37:94532Qgondhss HermannCHEM LIUWT6463-28-75 10:37:0028[facility] HermannCHEM DPQVI6972-30-67 10:37:009.8[facility] HermannCHEM QQAZE7510-65-29 10:37:0011.8[facility] HermannCHEM SDMOF5148-63-35 10:37:0059[facility]annCHEM CUIUZ3617-21-35 10:37:002.9[facility] YtjlxmzENPERJOQHM4198-20-58 10:37:006.8 [facility] VbukgwtZOVMKTUTKG4658-41-40 10:37:004.47[facility] HermannHEMATOLOGY 2020-08-29 10:37:0010.6[facility] TxwnyaqIPQXAKTWFX3001-48-64 10:37:0034.0[facility] PujrbdtCBAMGHPTZW1671-55-07 10:37:0076.1[facility] ArzwrkkUFVDZBTDBE2412-36-59 10:37:00 Test Item Value Reference Range Interpretation Comments MCH (test code = MCH) 23.8 pg 27.0-31.0 [facility] RjkmnevGKOBOCGTVU9775-03-74 10:37:0031.3[facility] HermannHEMATOLOGY 2020-08-29 10:37:0018.2[facility] TxuqlxqXFBBHEOMQF4976-37-20 10:37:44671Thztilkb CbuqptnWAGQYKXDPZ3783-06-17 10:37:007.5[facility] YslohrjTGHQOITUNO2128-24-93 10:37:00 Test Item Value Reference Range Interpretation Comments PT (test code = PT) 12.8 s 12.0-14.7 [facility] OesggykYBGERSCRDR3349-55-29 10:37:00 Test Item Value Reference Range Interpretation Comments INR (test code = INR) 0.97 1 0.85-1.17 [facility] FhelpgtFIIUYHCWVB3559-83-97 10:37:00 Test Item Value Reference Range Interpretation Comments PTT (test code = PTT) 25.0 s 22.9-35.8 [facility] BzgvddtAGXQEYERUG1526-30-44 10:37:0070.5[facility] HermannHEMATOLOGY 2020-08-29 10:37:0018.8[facility] NmmloocVPQSPPFLZK2232-62-20 10:37:009.5[facility] LnozvdjDFKSQJDZUY7691-96-47 10:37:000.9[facility] UqnxxuzZKMNNGVBGT8464-38-01 10:37:000.3[facility] YkbvgypGCEEPJGSJP1437-77-33 10:37:004.8[facility] KGHRRONRGC3377-01-51 10:37:001.3[facility] WdjlyowTJEWFEWICJ7266-41-97 10:37:000.6 [facility] IlkvngnZFPJWVXESN4641-10-87 10:37:000.1[facility] HermannHEMATOLOGY 2020-08-29 10:37:001+ *ABN*(08/29/20 5:37 AM)[facility] TkajrvbTHQPKKSXUJ8768-76-56 10:37:00Not Detected (08/29/20 5:37 AM)[facility]annBLOOD BANK RESULTS 2020-08-29 10:37:00Negative (08/29/20 5:37 AM)[facility]annCHEM WIPAL3370-82-44 10:37:41494Fvpieyxa HermannCHEM QTDNM8622-39-18 10:37:0028[facility]annCHEM ARVMR3678-81-87 10:37:001.01[facility]annCHEM RJUIV2993-65-63 10:37:72518 [facility]CHE[facility] IOEZC4106-58-15 10:37:003.8[facility] HermannCHEM PANEL 2020-08-29 10:37:33600Dxlhabxd HermannCHEM NTHTT6411-91-50 10:37:0028[facility] HermannCHEM WFCTJ7943-68-89 10:37:009.8[facility] HermannCHEM NPGCC6147-76-83 10:37:0011.8[facility] HermannCHEM LACRS1560-58-71 10:37:0059[facility] HermannCHEM MTYFX1759-35-92 10:37:002.9[facility] UsyhgxoRKZTKGZGRJ9621-67-51 10:37:006.8 [facility] XzqzmvqMIEYXDLJPR6100-99-36 10:37:004.47[facility] HermannHEMATOLOGY 2020-08-29 10:37:0010.6[facility] VelghwoISQWPGBSQZ5651-31-70 10:37:0034.0[facility] AbxgkxhSINAYQCJJP3834-39-06 10:37:0076.1[facility] XfdlfvlIIAGEKACAV3132-47-87 10:37:00 Test Item Value Reference Range Interpretation Comments MCH (test code = MCH) 23.8 pg 27.0-31.0 [facility] MhcepjiNUZOSJTIKS4714-77-76 10:37:0031.3[facility] HermannHEMATOLOGY 2020-08-29 10:37:0018.2[facility] RlxuyzbVMFTRXSZFQ8093-28-37 10:37:63418Kehyxsci SduczdcUAHXOIBZMD7994-40-26 10:37:007.5[facility] RwcbuslBNQGDVHRSA1970-17-72 10:37:00 Test Item Value Reference Range Interpretation Comments PT (test code = PT) 12.8 s 12.0-14.7 [facility] FsvgmaxWAWBVLLXLP7748-61-31 10:37:00 Test Item Value Reference Range Interpretation Comments INR (test code = INR) 0.97 1 0.85-1.17 [facility] ZrgzpwiKROQJHJHVW7677-19-39 10:37:00 Test Item Value Reference Range Interpretation Comments PTT (test code = PTT) 25.0 s 22.9-35.8 [facility] VsjsuitPDHHIDEASF4593-40-01 10:37:0070.5[facility] HermannHEMATOLOGY 2020-08-29 10:37:0018.8[facility] ExeizthUDKUYVWNRE8190-33-00 10:37:009.5[facility] GzibefsIYLJUJPGXF0938-84-51 10:37:000.9[facility] PalnvgjATWXUTTWAF0126-17-41 10:37:000.3[facility] VsdvcvyGVZIODHEAG4266-11-17 10:37:004.8[facility] BDWUMYOGDT2919-07-85 10:37:001.3[facility] QwvwytiMNTRKYJWZW9739-00-95 10:37:000.6 [facility] NxntayjWVQADXDCMA5010-21-30 10:37:000.1[facility] HermannHEMATOLOGY 2020-08-29 10:37:001+ *ABN*(08/29/20 5:37 AM)[facility] EvtmszoZKCXIISFHE8130-84-51 10:37:00Not Detected (08/29/20 5:37 AM)[facility] HermannBLOOD BANK RESULTS 2020-08-29 10:37:00Negative (08/29/20 5:37 AM)[facility] HermannCHEM OWOKG0425-54-02 10:37:78871Etjhgvzi HermannCHEM HCMYS2610-50-18 10:37:0028[facility] HermannCHEM NBUMX3455-76-08 10:37:001.01[facility] HermannCHEM VQFBR4037-85-89 10:37:61060 [facility]annCHE[facility] GZUJQ2528-66-63 10:37:003.8[facility] HermannCHEM PANEL 2020-08-29 10:37:23746Gqqrygdk HermannCHEM DVTVG8625-72-57 10:37:0028[facility] HermannCHEM AMLMA5184-29-19 10:37:009.8[facility] HermannCHEM UDHMW8387-64-21 10:37:0011.8[facility] HermannCHEM QKQJV9227-94-39 10:37:0059[facility]annCHEM HVRCH2959-65-95 10:37:002.9[facility] XjpmurkCPQUDQYUQA6167-25-09 10:37:006.8 [facility] SceahzsJLJYIGKBBL2557-62-47 10:37:004.47[facility] HermannHEMATOLOGY 2020-08-29 10:37:0010.6[facility] FzxgxuqEFAHXTDXGT4139-78-88 10:37:0034.0[facility] YltohgkCXJZSZWTRW1432-32-05 10:37:0076.1[facility] ZeueeihLCGDSTJCFN6916-82-99 10:37:00 Test Item Value Reference Range Interpretation Comments MCH (test code = MCH) 23.8 pg 27.0-31.0 [facility] MpoqsazOPSWJHWTAV1110-02-00 10:37:0031.3[facility] HermannHEMATOLOGY 2020-08-29 10:37:0018.2[facility] CugtvhvLWANNQWHFW2146-94-37 10:37:95491Kmppqhbf MylmbajJJASOMQTZP2589-99-36 10:37:007.5[facility] GrvscqcMEGREFRRCK8571-35-69 10:37:00 Test Item Value Reference Range Interpretation Comments PT (test code = PT) 12.8 s 12.0-14.7 [facility] AhmccwfWLLOUSIBTI1805-76-21 10:37:00 Test Item Value Reference Range Interpretation Comments INR (test code = INR) 0.97 1 0.85-1.17 [facility] SvmihgkDAEGGPYVFY9384-76-10 10:37:00 Test Item Value Reference Range Interpretation Comments PTT (test code = PTT) 25.0 s 22.9-35.8 [facility] WtefiuyJPBRIAWSVC2511-22-17 10:37:0070.5[facility] HermannHEMATOLOGY 2020-08-29 10:37:0018.8[facility] GdivbxzPLXZIOQYQB3037-60-89 10:37:009.5[facility] VhyolxnEUPRZEIXJQ9235-30-24 10:37:000.9[facility] HbrkekcHWWELAWUPV9202-82-14 10:37:000.3[facility] YzlxubkPAJWMXLZNK1662-27-74 10:37:004.8[facility] XJZEJXTDRW1728-03-22 10:37:001.3[facility] PjjpeuvFLWYYAWRTH7719-46-53 10:37:000.6 [facility] UncgrivWTANFAJXKI2893-94-39 10:37:000.1[facility] HermannHEMATOLOGY 2020-08-29 10:37:001+ *ABN*(08/29/20 5:37 AM)[facility] DqdwqsvJCZUWAMAJS3268-66-90 10:37:00Not Detected (08/29/20 5:37 AM)[facility] HermannBLOOD BANK RESULTS 2020-08-29 10:37:00Negative (08/29/20 5:37 AM)[facility] HermannCHEM TRHSB1505-68-82 10:37:28731Jyveoazm HermannCHEM OMBTP2095-79-68 10:37:0028[facility] HermannCHEM LFUIV8140-82-12 10:37:001.01[facility] HermannCHEM OBSKT0117-21-02 10:37:46261 [facility]annCHE[facility] LPGJZ3474-19-77 10:37:003.8[facility]annCHEM PANEL 2020-08-29 10:37:42216Vyoiymyv HermannCHEM LGDKT7054-80-13 10:37:0028[facility]annCHEM FJWOV7948-39-91 10:37:009.8[facility]annCHE[facility] GVFFM4813-55-01 10:37:0011.8[facility]annCHE[facility] DKTGF8797-91-78 10:37:0059[facility]annCHEM LVIAL4911-48-05 10:37:002.9[facility] HagnfouHNNDUXNDOW4941-36-69 10:37:006.8 [facility] IshuezeCYBJZCBTXX0224-81-59 10:37:004.47[facility]annHEMATOLOGY 2020-08-29 10:37:0010.6[facility] YsrfwspUBOFTGMDAL0568-18-98 10:37:0034.0[facility] NhsxhxwMSTZDKTJMY7043-75-88 10:37:0076.1[facility] PyrzabnDAWTXMQSAQ5394-26-36 10:37:00 Test Item Value Reference Range Interpretation Comments MCH (test code = MCH) 23.8 pg 27.0-31.0 [facility] HwwnropXXASNVGLMN9078-53-81 10:37:0031.3[facility]annHEMATOLOGY 2020-08-29 10:37:0018.2[facility] SqeilqfUHPMYKEIPO2463-32-77 10:37:78609Vqeucqmt VduvcitVENERZNXVD6563-03-72 10:37:007.5[facility] VmsqownJZEXKDMVLC6916-57-60 10:37:00 Test Item Value Reference Range Interpretation Comments PT (test code = PT) 12.8 s 12.0-14.7 [facility] YpekrdvAICZJUECTE0827-27-89 10:37:00 Test Item Value Reference Range Interpretation Comments INR (test code = INR) 0.97 1 0.85-1.17 [facility] LfqmyerGETVJXXONR5474-22-44 10:37:00 Test Item Value Reference Range Interpretation Comments PTT (test code = PTT) 25.0 s 22.9-35.8 [facility] WfytvmnIUPXNHTLIM4525-11-60 10:37:0070.5[facility]annHEMATOLOGY 2020-08-29 10:37:0018.8[facility] VzpqzazMYTSWGJRWM6760-10-66 10:37:009.5[facility] UcpsxjaMBBWITEPID8236-48-43 10:37:000.9[facility] YdepiuyWRZAJWZSDT4292-13-14 10:37:000.3[facility] FwxvgziGWUPHDWKMC0650-54-25 10:37:004.8[facility] SCEUEDMSNK6396-01-65 10:37:001.3[facility] NdyspdfOGESDLYAOL1192-04-18 10:37:000.6 [facility] PmltpyoOTFIAEPAWU3848-72-78 10:37:000.1[facility]annHEMATOLOGY 2020-08-29 10:37:001+ *ABN*(08/29/20 5:37 AM)[facility] MxseigkNSIOOALJXX4298-67-09 10:37:00Not Detected (08/29/20 5:37 AM)[facility] RonnieannCHLAMYDIA, GC, TV,PCR, IN QCVTV0257-65-91 15:38:00 Test Item Value Reference Range Interpretation Comments FT (test code = CHTR) Not detected (qualifier Not Detected N value) FT (test code = Not detected (qualifier Not Detected N NGONO) value) FT (test code = TRVG) Not detected (qualifier Not Detected N value) [facility] WZVXWUMSGRC4764-50-16 10:57:00 Test Item Value Reference Range Interpretation Comments Color (test code = UCOLR) Dk. Yellow Clarity (test code = UCLAR) Hazy Glucose (test code = UGLUC) NEGATIVE NEGATIVE N Bilirubin (test code = UBILI) NEGATIVE NEGATIVE N Ketones (test code = UKET) NEGATIVE NEGATIVE N Specific [place] (test code = 1.025 1.005-1.030 A [...] Notes Date/Time Note Provider Source 2021-08-05 14:08:00-00:00 [id number] [place] [id number] PATIENT NAME: MARJAN FLEMING ADMIT DATE: 08/05/21 ACCOUNT NO: [id number] ROOM NO: AGE: 66 REPORT TYPE: eTRANSESOPHAGEAL ECHO REPORT SEX: F ADMITTING PHYSICIAN: ATTENDING PHYSICIAN:Mike Lund MD *[place] [address] Transesophageal Echocardiogram Patient: Marjan Fleming Study Date: 08/05/2021 BP: 158 / 92 Location: [facility] URN: [id number] : 1955 Age: 66 Height: / Gender: F Weight: / BMI/BSA: / *Ordering Physician: * Mike Lund *Interpreting Physician: * Ashely Mckeon MD *Soil Science Teacher: * [place] [employer] Indications: POST WATCHMAN. Study [...] benzocaine spray. A transesophageal probe (SN: [id number]) was inserted by the attending hot packer without difficulty. L ocation: CV PREP. Patient [...] ECG leads and pulse oximetric signals were monitored. Sedation. Moderate sedation was administered by cardiology staff. Transesophageal echocardiography was performed. Topical anesthesia was obtained using benzocaine spray. A transeso phageal probe (SN: [id number]) was inserted by the attending cardiolog ist [...] PATIENT NAME: MARJAN FLEMING 32 2021-06-24 11:18:00-00:00 [id number] [place] [id number] PATIENT NAME: MARJAN FLEMING ADMIT DATE: 06/17/21 ACCOUNT NO: [id number] ROOM NO: ADDIS AGE: 66 REPORT TYPE: eTRANSESOPHAGEAL ECHO REPORT SEX: F ADMITTING PHYSICIAN:Mike Lund MD ATTENDING PHYSICIAN:Mike Lund MD *[address] [address] Transesophageal Echocardiogram for Watchman Patient: Marjan Fleming Study Date: 06/17/2021 BP: Location: [facility] URN: [id number] 2647 : 1955 Age: 66 Height: / [...] setup: The patient was brought to the [facility] in the fasting state.Intravenous access was obtained. Surface E CG leads, blood pressure measurements, and pulse oximetric signals were m onitored. Sedation. Sedation was administered by anesthesiology samreen rodas. Transesophageal echocardiography was performed. A transesophagea l probe was inserted by the anesthesiologist. Images were obtained using a [employer] cardiac ultrasound machine. Location: Catheterization laboratory. Christian woodruff completion: The patient tolerated the procedure well. There were no complications. Findings Conclusions Summary: PATIENT NAME: MARJAN FLEMING 7 1. Study data: Transesophageal Echocardiogram fo r Watchman. 2. Procedure narrative: Transesophageal echocard iography was performed. A transesophageal probe was inserted by the [facility] sthesiologist. Images were obtained using a [employer] cardiac ultrasound mac dalton. Impressions: Patient with [...] stable. Right groin suture removed by this DREDGE MASTER. No infect ion, bleeding, or hematoma. Dermabond applied and intact. Patient was provided with post-Watchman discharg e instructions. Patient is to follow up with PCP and hot packer in 1 t o 2 weeks post discharge. Patient is to follow up with hot packer for e 45-day WESLEY, and for anticoagulation recommendation. Prepared and electronically signed by Ashely Mckeon MD 06/24/2021 11:18 Electronically Signed by Mike Lund MD on at 1118 PATIENT NAME: MARJAN FLEMING 2021-06-17 18:10:00-00:00 [id number] [place] [address] PATIENT NAME: MARJAN FLEMING ADMIT DATE: 06/17/21 ACCOUNT NO: [id number] ROOM NO: ADDIS AGE: 66 REPORT TYPE: eECHOCARDIOGRAM REPORT SEX: F ADMITTING PHYSICIAN:Mike Lund MD ATTENDING PHYSICIAN:Mike Lund MD *[address] [place] [address] Limited Transthoracic Echocardiogram Patient: Marjan Fleming Study Date: 06/17/2021 BP: 117 / 82 Location: [facility] URN: [id number] 2647 : 1955 Age: 66 Height: 64 in / 162.6 cm Gender: F Weight: 210 lb / 95.5 kg BMI/BSA: 36.1 kg/m 2 / 2.12 m 2 *Ordering Physician: * Bahman Chopra *Interpreting Physician: * Kevin Merino MD *Soil Science Teacher: * Tiarra Loja Indications: Post Watchman/Rule out pericardial effusion. Study data: Transthoracic echocardiogram, limite d study. Procedure: Transthoracic echocardiography was performed. Im age quality was adequate. Limited 2D and limited spectral Dopple r. Location: [facility]. Patient status: Outpatient. Study status: [...] NAME: MARJAN FLEMING 7 2021-06-17 11:12:00-00:00 [facility] ([facility]) Discharge Summary REPORT#:[id number] REPORT STATUS: Signed DATE:06/17/21 TIME: 1112 PATIENT: MARJAN FLEMING UNIT #: [id number] ROOM/BED: RAFFAELE : 56 AGE: 67 SEX: F ATTEND: René Lund MD ADM AUTHOR: Bahman Chopra * ALL edits or amendments must be made on the el [employer]/computer document * PCP PCP Discharge to: home [...] stable. Right groin suture removed by this DREDGE MASTER. No infect ion, bleeding, or hematoma. Dermabond applied and intact. Patient was provided with post-Watchman discharg e instructions. Patient is to follow up with PCP and hot packer in 1 to 2 we eks post discharge. Patient is to follow up with hot packer for th e 45-day WESLEY, and for [...] breath, lightheadedness, or dizzi ness to the hot packer. Dispo: It is medically necessary that patients [...] 3.5 06/17 1022 Pulse Ox 96 06/17 0629 B/P 228/108 06/17 628 Temp 36.0 06/17 06 Pulse 62 06/17 0629 Resp 18 06/17 628 24 hour I [...] distress GI: soft, non-tender Extremities: moves all Neuro/CALCINE FURNACE TENDER: alert, oriented X 3 Skin: dry Wound/incision: Location: Right groin suture removed by this DREDGE MASTER. No infect ion, bleeding, or hematoma. Dermabond [...] In 1-2 weeks Electronically Signed by Bahman ChopraP o n 06/17/21 at 1613 Electronically Signed by Mike Lund MD on 07/14 at 0946 RPT #:[id number] END OF REPORT 2021-06-17 09:43:00-00:00 [id number] [place] [address] PATIENT NAME: MARJAN FLEMING ADMIT DATE: 06/17/21 ACCOUNT NO: [id number] ROOM NO: ADDIS AGE: 66 REPORT TYPE: eELECTROCARDIOGRAM REPORT SEX: F ADMITTING PHYSICIAN:Mike Lund MD ATTENDING PHYSICIAN:Mike Lund MD Order: [id number] Test Reason : S/P WATCHMAN Test Date/Time [...] PATIENT NAME: MARJAN FLEMING 7 2021-06-17 08:54:00-00:00 [id number] [place] [address] PATIENT NAME: MARJAN FLEMING ADMIT DATE: 06/17/21 ACCOUNT NO: [id number] ROOM NO: ADDIS AGE: 66 REPORT TYPE: CARDIAC CATHETERIZATION REPORT SEX: F ADMITTING PHYSICIAN:Mike Lund MD ATTENDING PHYSICIAN:Mike Lund MD PROCEDURE DATE: 06/17/2021 PROCEDURE PERFORMED: Left atrial appendage closu re using a 24 mm Watchman FLX closure device. ACCESS: Right femoral vein, 16-British closed wit h vgaabg-cj-deoyr suture. AUTOMATIC DRILLER AND REAMER: Mike Lund MD. SECONDARY HOMICIDE SQUAD CAPTAIN: Kevin Merino MD. COMPLICATIONS: None. BLEEDING: Less [...] I accessed right femo ral vein, placed 8-British Capitola sheath. Subsequently, upgraded to 16-British sheath and gave a partial dose of heparin, then took the SL1 sheat h into the SVC over a wire with [place] needle inside, descended under the fluor oscopy [...] I removed the Watchman sheath and the 16-British sheath and placed fzmtah-fj-mdscn suture for hemostasis, then achieved a good hemo stasis. CONCLUSION: Left atrial appendage closure using a 24 mm Watchman FLX closure PATIENT NAME: MARJAN FLEMING 47 device. Dictated By: Mike Lund MD WT: CATH:GAYLE/RIKY/ALLA Conf#: [id number]/DID#: [id number] Authenticated by Mike Lund MD On 07/01/2021 12:30:01 PM Electronically Signed by Mike Lund MD on at 1230 PATIENT NAME: MARJAN FLEMING 7 2021-06-16 10:36:00-00:00 [id number] [place] [address] PATIENT NAME: MARJAN FLEMING ADMIT DATE: ACCOUNT NO: [id number] ROOM NO: AGE: 66 REPORT TYPE: eELECTROCARDIOGRAM REPORT SEX: F ADMITTING PHYSICIAN: ATTENDING PHYSICIAN:Mike Lund MD Order: [id number] Test Reason : PREOP Test Date/Time Stamp: [...]
[2023-01-13] MEDS ORDERED: ACETAMINOPHEN 500 MG TAB ONE (22:53)
[2023-01-13] MEDS ORDERED: KETOROLAC 30 MG/ML INJ ONE (22:53)
--- NOTE | 2023-01-13 23:20 | EDPHYS ---
Physician Documentation [facility] Name: Marjan Kolb Age: 67 yrs Sex: Female : 1955 Arrival Date: 01/13/2023 Time: 22:25 Bed 4 Private MD: ED Physician Dion Randhawa HPI: 01/13 22:31 This 67 yrs old Female presents to ER via EMS with complaints of headache, sp4 frontal, acute. 23:08 Patient presents with EMS for primary complaint of a frontal headache starting today sp4 just prior to arrival. Patient has extensive past medical history of HIV, hypertension, atrial fibrillation, status post Watchman procedure, chronic diastolic heart failure, COPD, also history of opiate seeking behavior. Patient was last admitted on 11/30/2022. Patient also has history of 225 prior visits to the emergency department for various complaints. Patient is on extensive medication management at home.. Patient medication list includes Isentress, Zoloft, Descovy, amlodipine besylate, Dexilant, clopidogrel, trazodone, Wellbutrin XL, spironolactone, metoprolol, albuterol, buspirone, mometasone formoterol, clonazepam, hydrochlorothiazide, cefdinir, on Boldman Lou, spironolactone, methylprednisolone. Patient should be with infectious disease physician. For her management of HIV, during last admission patient was managed for COPD exacerbation and hypertensive emergency. And also BNP elevation. While in the hospital patient's blood pressure has stabilized she is improved clinically was discharged home on 11/30/2022.. Historical: - Allergies: 22:29 Azithromycin; mb9 22:29 Bactrim; mb9 22:29 butorphanol; mb9 22:29 Fentanyl; mb9 22:29 Reglan; mb9 22:29 Sulfa (Sulfonamide Antibiotics); mb9 22:29 TRIMETHOPRIM; mb9 - PMHx: 22:29 angina pectoris; Anxiety; Atrial fibrillation; Bipolar disorder; esophageal varicies; mb9 Hepatitis; HIV positive; Hypertensive disorder; Migraine; panic attack; - Immunization history:: Adult Immunizations up to date. - Social history:: Smoking status: Patient reports the use of cigarette tobacco products, smokes one-half pack cigarettes per day. - Family history:: not pertinent. ROS: 23:12 Constitutional: Negative for fever, chills, and weight loss, Neuro: Negative for sp4 weakness, numbness, tingling, and seizure, positive for frontal headache. 23:12 All other systems are negative. Exam: 01/14 04:08 Constitutional: This is a well developed, well nourished patient who is awake, alert, sp4 and in no acute distress. Head/Face: Normocephalic, atraumatic. Eyes: Pupils equal round and reactive to light, extra-ocular motions intact. Lids and lashes normal. Conjunctiva and sclera are not injected. Cornea within normal limits. Periorbital areas with no swelling, redness, or edema. ENT: Nares patent. No nasal discharge, no septal abnormalities noted. Tympanic membranes are normal and external auditory canals are clear. Oropharynx with no redness, swelling, or masses, exudates, or evidence of obstruction, uvula midline. Mucous membranes moist. Neck: Trachea midline, no thyromegaly or masses palpated, and no cervical lymphadenopathy. Supple, full range of motion without nuchal rigidity, or vertebral point tenderness. Chest/axilla: Normal chest wall appearance and motion. Nontender with no deformity. No lesions are appreciated. Cardiovascular: Regular rate and rhythm with a normal S1 and S2. No gallops, murmurs, or rubs. Normal PMI, no JVD. No pulse deficits. Respiratory: Lungs have equal breath sounds bilaterally, clear to auscultation and percussion. No rales, rhonchi or wheezes noted. No increased work of breathing, no retractions or nasal flaring. Abdomen/GI: Soft, non-tender, with normal bowel sounds. No distension or tympany. No guarding or rebound. No evidence of tenderness throughout. Back: No spinal tenderness. No costovertebral tenderness. Skin: Warm, dry with normal turgor. Normal color with no rashes, no lesions, and no evidence of cellulitis. MS/ Extremity: Pulses equal, no cyanosis. Neurovascular intact. Full, normal range of motion. Neuro: Awake and alert, GCS 15, oriented to person, place, time, and situation. Cranial nerves II-XII grossly intact. Motor strength 5/5 in all extremities. Sensory grossly intact. Psych: Awake, alert, with orientation to person, place and time. Behavior, mood, and affect are within normal limits Vital Signs: 01/13 22:27 BP 132 / 92; Pulse 84; Resp 18; Temp 98.2; Pulse Ox 95% on R/A; Weight 83.91 kg; Height mb9 5 ft. 7 in. ; Pain 03/01; 23:00 BP 161 / 109; Pulse 59; Resp 18; Pulse Ox 95% ; vc1 22:27 Body Mass Index 28.97 (83.91 kg, 170.18 cm) mb9 22:27 Pain Scale: Adult mb9 MDM: 22:30 Patient medically screened. sp4 01/14 04:08 Differential Diagnosis altered mental status, Tension headache, cluster headache, sp4 migraine headache. Data reviewed: vital signs, nurses notes, old medical records. ED course: Patient's headache has improved after medications in the emergency department. We have reviewed long list of emergency room visits and it was determined that CT head is unnecessary at this time. Patient has signs of opiate seeking behavior. Will advise [id number] Tylenol and ibuprofen as needed for the headache at home. Follow-up with forensic locksmith for persistent recurrent headaches. No further recommendations.. Administered Medications: 01/13 22:47 Drug: Acetaminophen PO 1000 mg Route: PO; vc1 23:51 Follow up: Response: No adverse reaction; Marked relief of symptoms vc1 22:47 Drug: Ketorolac IM 60 mg Route: IM; Site: right gluteus; vc1 23:51 Follow up: Response: No adverse reaction; Marked relief of symptoms vc1 23:51 Drug: cloNIDine PO 0.2 mg Route: PO; vc1 23:51 Follow up: Response: Medication administered at discharge. vc1 Disposition Summary: 01/13/23 23:19 Discharge Ordered Location: Home sp4 Problem: new sp4 Symptoms: have improved sp4 Condition: Stable sp4 Diagnosis - Episodic tension-type headache sp4 Followup: sp4 - With: Private Physician - When: 7 - 10 days - Reason: Recheck today's complaints Discharge Instructions: - Discharge Summary Sheet sp4 - General Headache Without Cause sp4 Forms: - Patient Portal Instructions sp4 Signatures: Deyanira Medina RN RN vc1 Jessie Cristina RN RN mb9 Dion Randhawa MD MD sp4
--- NOTE | 2023-01-13 23:20 | ER ---
Nurse's Notes [facility] Name: Marjan Kolb Age: 67 yrs Sex: Female : 1955 Arrival Date: 01/13/2023 Time: 22:25 Bed 4 Private MD: Diagnosis: Episodic tension-type headache Presentation: 01/13 22:27 Chief complaint: EMS states: "Toned out for having a headache since 1800 today. BGL mb9 137.". Coronavirus screen: Vaccine status: Patient reports receiving the 2nd dose of the covid vaccine. Ebola Screen: No symptoms or risks identified at this time. Initial Sepsis Screen: Does the patient meet any 2 criteria? No. Patient's initial sepsis screen is negative. Does the patient have a suspected source of infection? No. Patient's initial sepsis screen is negative. Initial Sepsis Screen:. Initial Sepsis Screen: Does the patient meet any 2 criteria? No. Patient's initial sepsis screen is negative. Does the patient have a suspected source of infection?. Risk Assessment: Do you want to hurt yourself or someone else? Patient reports no desire to harm self or others. Onset of symptoms was January 13, 2023. 22:27 Method Of Arrival: EMS: [facility] mb9 22:27 Acuity: BLAYNE 4 mb9 Historical: - Allergies: 22:29 Azithromycin; mb9 22:29 Bactrim; mb9 22:29 butorphanol; mb9 22:29 Fentanyl; mb9 22:29 Reglan; mb9 22:29 Sulfa (Sulfonamide Antibiotics); mb9 22:29 TRIMETHOPRIM; mb9 - PMHx: 22:29 angina pectoris; Anxiety; Atrial fibrillation; Bipolar disorder; esophageal varicies; mb9 Hepatitis; HIV positive; Hypertensive disorder; Migraine; panic attack; - Immunization history:: Adult Immunizations up to date. - Social history:: Smoking status: Patient reports the use of cigarette tobacco products, smokes one-half pack cigarettes per day. - Family history:: not pertinent. Screenin:[address] [facility] ED Fall Risk Assessment (Adult) History of falling in the last 3 months, mb9 including since admission No falls in past 3 months (0 pts) Confusion or Disorientation No (0 pts) Intoxicated or Sedated No (0 pts) Impaired Gait No (0 pts) Mobility Assist Device Used No (0 pt) Altered Elimination No (0 pt) Score/Fall Risk Level 0 - 2 = Low Risk Oriented to surroundings, Maintained a safe environment, Educated pt \\T\\ family on fall prevention, incl call for assistance when getting out of bed. Abuse screen: Denies threats or abuse. Nutritional screening: No deficits noted. Tuberculosis screening: No symptoms or risk factors identified. Assessment: 22:41 General: Appears in no apparent distress. Behavior is calm, cooperative. Pain: mb9 Complains of pain in head Pain does not radiate. Pain currently is 10 out of 10 on a pain scale. Quality of pain is described as aching, throbbing, Pain began suddenly, Is continuous. Neuro: Gonzalez Agitation-Sedation Scale (RASS): 0 - Alert and Calm Level of Consciousness is awake, alert, obeys commands, Oriented to person, place, time, situation, Appropriate for age. Cardiovascular: Patient's skin is warm and dry. Respiratory: Airway is patent Respiratory effort is even, unlabored, Respiratory pattern is regular, symmetrical, Breath sounds are clear bilaterally. GI: Abdomen is round non-distended, Bowel sounds present X 4 quads. : No signs and/or symptoms were reported regarding the genitourinary system. Derm: Skin is pink, warm \\T\\ dry. Musculoskeletal: Range of motion: intact in all extremities. 23:52 Reassessment: No changes from previously documented assessment. Patient and/or family vc1 updated on plan of care and expected duration. Pain level reassessed. Patient is alert, oriented x 3, equal unlabored respirations, skin warm/dry/pink. Vital Signs: 22:27 BP 132 / 92; Pulse 84; Resp 18; Temp 98.2; Pulse Ox 95% on R/A; Weight 83.91 kg; Height mb9 5 ft. 7 in. ; Pain 10/10; 23:00 BP 161 / 109; Pulse 59; Resp 18; Pulse Ox 95% ; vc1 22:27 Body Mass Index 28.97 (83.91 kg, 170.18 cm) mb9 22:27 Pain Scale: Adult mb9 ED Course: 22:27 Patient arrived in ED. mb9 22:27 Arm band placed on. mb9 22:29 Triage completed. mb9 22:29 Cristina Mueller FNP-C is PHCP. snw 22:30 Dion Randhawa MD is Attending Physician. snw 22:30 Placed in gown. Bed in low position. Call light in reach. Side rails up X 1. Client mb9 placed on continuous cardiac and pulse oximetry monitoring. NIBP monitoring applied. 22:36 No provider procedures requiring assistance completed. Patient did not have IV access mb9 during this emergency room visit. 22:47 Deyanira Medina RN is Primary Nurse. vc1 Administered Medications: 22:47 Drug: Acetaminophen PO 1000 mg Route: PO; vc1 23:51 Follow up: Response: No adverse reaction; Marked relief of symptoms vc1 22:47 Drug: Ketorolac IM 60 mg Route: IM; Site: right gluteus; vc1 23:51 Follow up: Response: No adverse reaction; Marked relief of symptoms vc1 23:51 Drug: cloNIDine PO 0.2 mg Route: PO; vc1 23:51 Follow up: Response: Medication administered at discharge. vc1 Medication: 22:36 VIS not applicable for this client. mb9 Outcome: 23:19 Discharge ordered by . sp4 23:52 Discharged to home via wheelchair. vc1 23:52 Condition: good 23:52 Discharge instructions given to patient, Instructed on discharge instructions, follow up and referral plans. Demonstrated understanding of instructions, follow-up care. 23:53 Patient left the ED. vc1 Signatures: Cristina Mueller, SURGICAL INSTRUMENT TECHNICIAN-C SURGICAL INSTRUMENT TECHNICIAN-Csnw Deyanira Medina RN RN vc1 Jessie Cristina RN RN mb9 Dion Randhawa MD MD sp4 Corrections: (The following items were deleted from the chart) 22:29 22:27 Chief complaint: EMS states: "Toned out for having a headache since 1800 today." mb9 mb9
[2023-01-13] MEDS ORDERED: cloNIDine HCL 0.1 MG TAB ONE (23:54)
[2023-01-14 00:04] VITALS: TEMP 98.2; O2SAT 95
[2023-01-14 00:08] VITALS: BP 161/109
== END 2023-01-13 23:53 | disposition home or self-care (01) ==
LOC: ER 22:25
DX: G44.219 Episodic tension-type headache, not intractable (principal); F17.210 Nicotine dependence, cigarettes, uncomplicated; Z21 Asymptomatic human immunodeficiency virus [HIV] infection status; Z88.1 Allergy status to other antibiotic agents; Z88.2 Allergy status to sulfonamides; Z88.8 Allergy status to other drugs, medicaments and biological substances
CPT/HCPCS: 96372; 99284

== ENCOUNTER 2023-01-22 21:47 | Emergency (ER) | payer OTHER ==
--- OUTSIDE RECORDS SUMMARY | 2023-01-22 22:09 | XMS REPORT | Continuity of Care Document ---
:1955 Author Organization [facility] t Address [address] [place] [address] Care Team Providers Name Role Phone Urmila [...] Attending Clinician Unavailable Robbi Bal Attending Clinician [facility] Attending Clinician Unavailable Isaias Whiteside RN Attending Clinician Unavailable TOMY MARIE Attending Clinician Unavailable Reilly Means MD Attending Clinician Ofe Shields MD Attending Clinician Tomy Marie MD Attending Clinician Doctor Unassigned, Morganza Attending Clinician Unavailable Bill COLES Attending Clinician Unavailable Bill Rose Attending Clinician CHARITY MCALLISTER Attending Clinician Unavailable Chartiy Mcallister MD Attending Clinician GADIEL KOEHLER Attending Clinician Unavailable Mike Lund Attending Clinician Unavailable NIKOLAI REEVES Attending Clinician Unavailable Eliseo Arce MD Attending Clinician Carol Ann IZQUIERDO, Sarai Lieberman Attending Clinician [phone] Ashly Pelletier MA Attending Clinician Unavailable Dagoberto Bass MD Attending Clinician [place] Evangelista Attending Clinician Lab, [facility] Pob I Attending Clinician Unavailable Monica Rodas MA Attending Clinician Unavailable Agustina Ortiz MA Attending Clinician Unavailable Andrez RAMIREZ, Rody Attending Clinician Unavailable Kirit Flood MD, V. Attending Clinician HEMATPOUR, BEVERLY Attending Clinician Unavailable Caridad HUITRONP, Gloria Attending Clinician Xiao RAMIREZ, Michael Corbin Attending Clinician Unavailable Team, [facility] Attending Clinician UnavailDO PORSHA Newell Attending Clinician Unavailable Gadiel Koehler MD Attending Clinician Tyrone JENKINS, Eveline Sierra Attending Clinician Stanislav RAMIREZ, Eladio Inman Attending Clinician Unavailable Geraldine SALGUERO, Leyda Attending Clinician [phone] Selvin RAMIREZ, Stefanie Attending Clinician Unavailable HOME MATTHEWS Admitting Clinician Unavailable ANETTE OLEA Admitting Clinician Unavailable TOMY MARIE Admitting Clinician Unavailable Tomy Marie MD Admitting Clinician Bill COLES Admitting Clinician Unavailable RahmanLele Admitting Clinician Unavailable Mike Lund Admitting Clinician Unavailable ELISEO ARCE Admitting Clinician Unavailable DO PORSHA STREETER Admitting Clinician Unavailable Payers Payer Name Policy Type Policy Number Effective Date Expiration Date S gabino [facility] [id number] 2012 STAR PLUS OON 00:00:00 [facility] [id number] 2019 DUAL COMPLETE HMO 00:00:[address] [facility] [id number] 2019 PLUS 00:00:00 [employer] [facility] [id number] 2019 [facility] 00:00:00 [employer] MEDICARE ADV [id number] 2019 2019 00:00:00 00:00:00 Problems Condition Condition Condition Status Onset Resolution Last Treating Co mments Source Name Details Category Date Date Treatment Clinician Date Dyspnea, Dyspnea, Disease Active Unive rs unspecifie unspecifie 02-11 it y of d type d type 00:00: [address] Branch Gastropare Gastropare Disease Active Overview : Methodi sis sis 4-[address] 00:00: [facility] note l might be different from the original. Added automatic ally from request for surgery [id number] Dysphagia Dysphagia Disease Active Overview: Methodi 4-[address] 00:00: g [facility]osp[facility] 00 note l might be different from the original. 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 2020-10-15 Memeduardo PVI PVI 330 17:07:00 l ABLATION ABLATION 00:00: Patel n W/ CARTO / W/ CARTO / 00 GA / T GA / T Active 08/19/2020 [facility] Food Food Disease Active 2019-05 Methodi intoleranc [...] [facility] prim - Clear 00:00: Garcia [facility] codeine DA Active SV N/V [facility] - Clear 00:00: Garcia 00 [facility] Metoclop Propensi Active [...] Univers PRIM INGREDI 2- ity of 00:00: [place] 00 [...] Rash 2015-05 Method i hoxazole ty to [address] adverse 00:00: Hospita reaction 00 l [...] Date Stop Date Source Natural father Diabetes [facility] Natural father Other - see comments [facility] Natural [facility] father [facility] Natural mother [facility] Social History Social Habit Start Date Stop Date Quantity Comments Source History SDOH [facility] Alcohol Frequency Hospita l History SDOH [facility] Alcohol Std Drinks Hospit al History SDHI [facility] Gender identity [facility] Sexual orientation [facility] History of Social 2022-08-26 2022-08-[address] function 00:00:00 00:00:00 Hospital Exposure to 2022-04-30 2022-05-10 Yes University of SARS-CoV-2 (event) 00:00:00 10:25:00 [facility] [place] [facility] Tobacco use and 2022-02-11 2022-02-11 Former smokeless Uni versity of exposure 00:00:00 00:00:00 tobacco user [facility] Tobacco Comment 2022-02-11 2022-02-11 Smokes approx 1-2 Un iversity of 00:00:00 00:00:[address] [facility] day when she Branch smokes Alcohol intake 2020-12-08 2020-12-08 Current drinker [facility] 00:00:00 00:00:00 of [facility] (finding) Cigarettes smoked 2020-09-05 2020-09-[address] current (pack per 00:00:00 00:00:00 Hospita l day) - Reported Cigarette 2020-09-05 2020-09-05 [facility] pack-years 00:00:00 00:00:00 Hospital Alcohol Comment 2016-09-23 2016-09-23 rare [facility] 00:00:00 00:00:00 Hospital History of tobacco 2011-09-29 User of smokeless University of use 00:00:00 tobacco [facility] [place] [facility][birth year] At [birth year] [facility] 00[facility] Smoking Status Start Date Stop Date Source Ex-smoker 2022-02-11 00:00:00 2022-02-11 00:00:00 [facility] Medications Ordered Filled Start Stop Current Ordering Indication Dosage Frequency Signature Comments Components Source Medication Medication Date Date Medication? Clinician (SIG) Name Name emtricitabi Yes [id number] Take one Univers ne-tenofovi 6-12 po daily ity of r alafen 00:00: [place] (DESCOVY) 00 Medical tablet Branch raltegravir Yes [id number] 400mg Take 1 Univers (ISENTRESS) 6-12 tablet by ity of 400 mg 00:00: mouth in [place] tablet 00 the Medical morning Branch and 1 tablet in the evening. emtricitabi Yes [id number] Take one Univers ne-tenofovi 6-12 po daily ity of r alafen 00:00: [place] (DESCOVY) 00 Medical tablet Branch raltegravir Yes [id number] 400mg Take 1 Univers (ISENTRESS) 6-12 tablet by ity of 400 mg 00:00: mouth in [place] tablet 00 the Medical morning Branch and 1 tablet in the evening. DESCOVY Yes [id number] Take one Univers tablet 5-08 po daily ity of 00:00: [place] 00 Medical Branch raltegravir 0 Yes [id number] 400mg Take 1 Univers (ISENTRESS) 5-08 tablet by ity of 400 mg 00:00: mouth in [place] tablet 00 the Medical morning Branch and 1 tablet in the evening. DESCOVY 2022- No [id number] Take one Univers tablet 5-08 -12 po daily ity of 00:00: 00:00 [place] 00 :00 Medical Branch raltegravir 0 2022- No [id number] 400mg Take 1 Univers (ISENTRESS) 5-08 -12 tablet by it y of 400 mg 00:00: 00:00 mouth in [place] tablet 00 :00 the Medical morning Branch and 1 tablet in the evening. emtricitabi Yes [id number] Take one Univers ne-tenofovi 4-04 po daily ity of r alafen 00:00: [place] (DESCOVY) 00 Medical tablet Branch emtricitabi 0 Yes [id number] Take one Univers ne-tenofovi 4-04 po daily ity of r alafen 00:00: [place] (DESCOVY) 00 Medical tablet Branch emtricitabi 2022- No [id number] Take one Univers ne-tenofovi 4- 05-08 po daily ity of r alafen 00:00: 00:00 [place] (DESCOVY) 00 :00 Medical tablet Branch potassium 2021-05 No 10meq 10 mEq, IV Univers chloride in 07-11 Piggyback, i ty of water 10 20:00: 22:00 ONCE, 1 [place] mEq/100 mL 00 :00 dose, On Medic al RTU 10 mEq [facility] 05/10/22 at 1400, Administer over 60 Minutes, 100 mL magnesium 2021-05 No 800mg 800 mg, Uni vers oxide 07-11 Oral, ity of (MAG-OX 20:00: 19:37 ONCE, 1 [place] 400) tablet 00 :00 dose, On Medi porfirio 800 mg [facility] 05/10/22 at 1400, Routine KCL 2021-05 No 40meq 40 mEq, Univers (KLOR-CON 07-11 Oral, ity of M20) tablet 19:15: 19:37 [place]CE[place] 1 [place] 40 mEq 00 :00 dose, On Medical [facility] 05/10/22 at 1315, JOE hydralAZINE 2021-05 No 10mg 10 mg, Uni vers (APRESOLINE 07-11 Slow IV ity of ) injection 18:45: 18:42 [place] 10 mg 00 :00 ONCE, 1 Medical dose, On Branch [facility] 05/10/22 at 1245, JOE NaCl 0.9% 2021-05 No 1000mL at 999 Uni vers (NS) bolus 07-11 mL/hr, ity of infusion 17:45: 20:00 1,000 mL, [place] 1,000 mL 00 :00 IV Medical Infusion, Branch ONCE, 1 dose, On [facility] 05/10/22 at 1145, JOE cefpodoxime 2021-05- No [id number] 100mg Take 1 Univers 100 mg -08 05-25 tablet by ity of tablet 00:00: 05:59 mouth in [place] 00 :00 the Medical morning Branch and 1 tablet in the evening. Do all this for 7 days. cefpodoxime 2021-05- No [id number] 100mg Take 1 Univers 100 mg 2-17 12-25 tablet by ity of tablet 00:00: 05:59 mouth in [place] 00 :00 the Medical morning Branch and 1 tablet in the evening. Do all this for 7 days. cefpodoxime 2021-05 No [id number] 100mg Take 1 Univers 100 mg 2-17 12-25 tablet by ity of tablet 00:00: 05:59 mouth in [place] 00 :00 the Medical morning Branch and 1 tablet in the evening. Do all this for 7 days. butalbital- 2021-05- No 1{tbl} 1 tablet, Univers acetaminoph 2-16 12-15 Oral, ity of en-caff 00:15: 23:19 ONCE, 1 [place] (ESGIC) 00 :00 dose, On Medical 50-325-40 [...] 05/06/22 at 1515, JOE ondansetron 2021-05 Yes [id number] 1-2 U nivers 4 mg tablet 2-15 tablets ity o f 00:00: every 8 [place] 00 hours as Medical needed for Branch nausea benzonatate 2021-05 Yes [id number] 200mg Take 1 Univers 200 mg 2-15 capsule by ity of capsule 00:00: mouth 3 [place] 00 (three) Medical times Branch daily as needed for Cough. albuterol 2021-05 Yes [id number] 2{puff} Inhale 2 Univers 90 2-15 Puffs ity of mcg/actuati 00:00: every 4 [place] on inhaler 00 (four) Medical hours as Branch needed for Wheezing or Shortness of Breath. butalbital- 2021-05 Yes [id number] 1{tbl} Take 1 Univers acetaminoph 2-15 tablet by ity of en-caff 00:00: mouth [place] 50-325-40 00 every 4 Medical mg tablet (four) Branch hours as needed (headache) . ondansetron 2021-05 Yes [id number] 1-2 U nivers 4 mg tablet 2-15 tablets ity o f 00:00: every 8 [place] 00 hours as Medical needed for Branch nausea benzonatate 2021-05 Yes [id number] 200mg Take 1 Univers 200 mg 2-15 capsule by ity of capsule 00:00: mouth 3 [place] 00 (three) Medical times Branch daily as needed for Cough. albuterol 2021-05 Yes [id number] 2{puff} Inhale 2 Univers 90 2-15 Puffs ity of mcg/actuati 00:00: every 4 [place] on inhaler 00 (four) Medical hours as Branch needed for Wheezing or Shortness of Breath. butalbital- 2021-05 Yes [id number] 1{tbl} Take 1 Univers acetaminoph 2-15 tablet by ity of en-caff 00:00: mouth [place] 50-325-40 00 every 4 Medical mg tablet (four) Branch hours as needed (headache) . ondansetron 2021-05 Yes [id number] 1-2 U nivers 4 mg tablet 2-15 tablets ity o f 00:00: every 8 [place] 00 hours as Medical needed for Branch nausea benzonatate 2021-05 Yes [id number] 200mg Take 1 Univers 200 mg 2-15 capsule by ity of capsule 00:00: mouth 3 (three) Medical times Branch daily as needed for Cough. albuterol 2021-05 Yes [id number] 2{puff} Inhale 2 Univers 90 2-15 Puffs ity of mcg/actuati 00:00: every 4 [place] on inhaler 00 (four) Medical hours as Branch needed for Wheezing or Shortness of Breath. butalbital- 2021-05 Yes [id number] 1{tbl} Take 1 Univers acetaminoph 2-15 tablet by ity of en-caff 00:00: mouth [place] 50-325-40 00 every 4 Medical mg tablet (four) Branch hours as needed (headache) . ondansetron 2021-05 Yes [id number] 1-2 U nivers 4 mg tablet 2-15 tablets ity o f 00:00: every 8 [place] 00 hours as Medical needed for Branch nausea benzonatate 2021-05 Yes [id number] 200mg Take 1 Univers 200 mg 2-15 capsule by ity of capsule 00:00: mouth 3 (three) Medical times Branch daily as needed for Cough. albuterol 2021-05 Yes [id number] 2{puff} Inhale 2 Univers 90 2-15 Puffs ity of mcg/actuati 00:00: every 4 [place] on inhaler 00 (four) Medical hours as Branch needed for Wheezing or Shortness of Breath. butalbital- 2021-05 Yes [id number] 1{tbl} Take 1 Univers acetaminoph 2-15 tablet by ity of en-caff 00:00: mouth [place] 50-325-40 00 every 4 Medical mg tablet (four) Branch hours as needed (headache) . ondansetron 2021-05 Yes [id number] 1-2 U nivers 4 mg tablet 2-15 tablets ity o f 00:00: every 8 [place] 00 hours as Medical needed for Branch nausea benzonatate 2021-05 Yes [id number] 200mg Take 1 Univers 200 mg 2-15 capsule by ity of capsule 00:00: mouth 3 00 (three) Medical times Branch daily as needed for Cough. albuterol 2021-05 Yes [id number] 2{puff} Inhale 2 Univers 90 2-15 Puffs ity of mcg/actuati 00:00: every 4 [place] on inhaler 00 (four) Medical hours as Branch needed for Wheezing or Shortness of Breath. butalbital- 2021-05 Yes [id number] 1{tbl} Take 1 Univers acetaminoph 2-15 tablet by ity of en-caff 00:00: mouth [place] 50-325-40 00 every 4 Medical mg tablet (four) Branch hours as needed (headache) . ondansetron 2021-05 Yes [id number] 1-2 U nivers 4 mg tablet 2-15 tablets ity o f 00:00: every 8 [place] 00 hours as Medical needed for Branch nausea benzonatate 2021-05 Yes [id number] 200mg Take 1 Univers 200 mg 2-15 capsule by ity of capsule 00:00: mouth 3 [place] 00 (three) Medical times Branch daily as needed for Cough. albuterol 2021-05 Yes [id number] 2{puff} Inhale 2 Univers 90 2-15 Puffs ity of mcg/actuati 00:00: every 4 [place] on inhaler 00 (four) Medical hours as Branch needed for Wheezing or Shortness of Breath. butalbital- 2021-05 Yes [id number] 1{tbl} Take 1 Univers acetaminoph 2-15 tablet by ity of en-caff 00:00: mouth [place] 50-325-40 00 every 4 Medical mg tablet (four) Branch hours as needed (headache) . ondansetron 2021-05 Yes [id number] 1-2 U nivers 4 mg tablet 2-15 tablets ity o f 00:00: every 8 [place] 00 hours as Medical needed for Branch nausea benzonatate 2021-05 Yes [id number] 200mg Take 1 Univers 200 mg 2-15 capsule by ity of capsule 00:00: mouth 3 [place] 00 (three) Medical times Branch daily as needed for Cough. albuterol 2021-05 Yes [id number] 2{puff} Inhale 2 Univers 90 2-15 Puffs ity of mcg/actuati 00:00: every 4 [place] on inhaler 00 (four) Medical hours as Branch needed for Wheezing or Shortness of Breath. butalbital- 2021-05 Yes [id number] 1{tbl} Take 1 Univers acetaminoph 2-15 tablet by ity of en-caff 00:00: mouth [place] 50-325-40 00 every 4 Medical mg tablet (four) Branch hours as needed (headache) . ondansetron 2021-05 Yes [id number] 1-2 U nivers 4 mg tablet 2-15 tablets ity o f 00:00: every 8 [place] 00 hours as Medical needed for Branch nausea benzonatate 2021-05 Yes [id number] 200mg Take 1 Univers 200 mg 2-15 capsule by ity of capsule 00:00: mouth 3 00 (three) Medical times Branch daily as needed for Cough. albuterol 2021-05 Yes [id number] 2{puff} Inhale 2 Univers 90 2-15 Puffs ity of mcg/actuati 00:00: every 4 [place] on inhaler 00 (four) Medical hours as Branch needed for Wheezing or Shortness of Breath. butalbital- 2021-05 Yes [id number] 1{tbl} Take 1 Univers acetaminoph 2-15 tablet by ity of en-caff 00:00: mouth [place] 50-325-40 00 every 4 Medical mg tablet (four) Branch hours as needed (headache) . ondansetron 2021-05 Yes [id number] 1-2 U nivers 4 mg tablet 2-15 tablets ity o f 00:00: every 8 [place] 00 hours as Medical needed for Branch nausea benzonatate 2021-05 Yes [id number] 200mg Take 1 Univers 200 mg 2-15 capsule by ity of capsule 00:00: mouth 3 00 (three) Medical times Branch daily as needed for Cough. albuterol 2021-05 Yes [id number] 2{puff} Inhale 2 Univers 90 2-15 Puffs ity of mcg/actuati 00:00: every 4 [place] on inhaler 00 (four) Medical hours as Branch needed for Wheezing or Shortness of Breath. butalbital- 2021-05 Yes [id number] 1{tbl} Take 1 Univers acetaminoph 2-15 tablet by ity of en-caff 00:00: mouth [place] 50-325-40 00 every 4 Medical mg tablet (four) Branch hours as needed (headache) . ondansetron 2021-05 Yes [id number] 1-2 U nivers 4 mg tablet 2-15 tablets ity o f 00:00: every 8 [place] 00 hours as Medical needed for Branch nausea benzonatate 2021-05 Yes [id number] 200mg Take 1 Univers 200 mg 2-15 capsule by ity of capsule 00:00: mouth 3 [place] 00 (three) Medical times Branch daily as needed for Cough. albuterol 2021-05 Yes [id number] 2{puff} Inhale 2 Univers 90 2-15 Puffs ity of mcg/actuati 00:00: every 4 [place] on inhaler 00 (four) Medical hours as Branch needed for Wheezing or Shortness of Breath. butalbital- 2021-05 Yes [id number] 1{tbl} Take 1 Univers acetaminoph 2-15 tablet by ity of en-caff 00:00: mouth [place] 50-325-40 00 every 4 Medical mg tablet (four) Branch hours as needed (headache) . ondansetron 2021-05 Yes [id number] 1-2 U nivers 4 mg tablet 2-15 tablets ity o f 00:00: every 8 [place] 00 hours as Medical needed for Branch nausea benzonatate 2021-05 Yes [id number] 200mg Take 1 Univers 200 mg 2-15 capsule by ity of capsule 00:00: mouth 3 [place] 00 (three) Medical times Branch daily as needed for Cough. albuterol 2021-05 Yes [id number] 2{puff} Inhale 2 Univers 90 2-15 Puffs ity of mcg/actuati 00:00: every 4 [place] on inhaler 00 (four) Medical hours as Branch needed for Wheezing or Shortness of Breath. butalbital- 2021-05 Yes [id number] 1{tbl} Take 1 Univers acetaminoph 2-15 tablet by ity of en-caff 00:00: mouth [place] 50-325-40 00 every 4 Medical mg tablet (four) Branch hours as needed (headache) . nirmatrelvi 2021-05 [id number] 2{tbl} Take 2 Univers r-ritonavir 2-15 12-21 tablets by i ty of (PAXLOVID, 00:00: 05:59 mouth in [place] EUA,) 300 00 :00 the Medical mg (150 mg morning Branch x 2)-100 mg and 2 tablet tablets in the evening. Do all this for 5 days. nirmatrelvi 2021-05- No [id number] 2{tbl} Take 2 Univers r-ritonavir 2-15 12-21 tablets by i ty of (PAXLOVID, 00:00: 05:59 mouth in [place] EUA,) 300 00 :00 the Medical mg (150 mg morning Branch x 2)-100 mg and 2 tablet tablets in the evening. Do all this for 5 days. nirmatrelvi 2021-05- No [id number] 2{tbl} Take 2 Univers r-ritonavir 2-15 12-21 tablets by i ty of (PAXLOVID, 00:00: 05:59 mouth in [place] EUA[place] 300 00 :00 the Medical mg (150 mg morning Branch x 2)-100 mg and 2 tablet tablets in the evening. Do all this for 5 days. tiatrei 2021-05- No [id number] 2{tbl} Take 2 Univers r-ritonavir 2-15 12-21 tablets by i ty of (PAXLOVID, 00:00: 05:59 mouth in [place] EUA[place] 300 00 :00 the Medical mg (150 mg morning Branch x 2)-100 mg and 2 tablet tablets in the evening. Do all this for 5 days. ondansetron 2021-05 No 4mg 4 mg, Univ ers (ZOFRAN-ODT 06-23 Oral, ity of ) 22:45: 21:53 ONCE, 1 [place] disintegrat 00 :00 dose, On Medi porfirio ing tablet [place] Branch 4 mg 04/22/22 at 1645, Routine amoxicillin 2021-05 Yes [id number] 1{tbl} Take 1 Univers -clavulanat 2- [id number] tablet by i ty of e 875-125 00:00: mouth [place] mg per 00 every 12 Medical tablet (twelve) Branch hours. ondansetron 2021-05 Yes [id number] 4mg Take 1 Univers 4 mg 2- 614512 tablet by ity of disintegrat 00:00: mouth [place] ing tablet 00 every 8 Medica l (eight) Branch hours as needed for Nausea and Vomiting (N/V). amoxicillin 2021-05 Yes [id number] 1{tbl} Take 1 Univers -clavulanat 2-01 [id number] tablet by i ty of e 875-125 00:00: mouth [place] mg per 00 every 12 Medical tablet (twelve) Branch hours. ondansetron 2021-05 Yes [id number] 4mg Take 1 Univers 4 mg 2-01 [id number] tablet by ity of disintegrat 00:00: mouth [place] ing tablet 00 every 8 Medica l (eight) Branch hours as needed for Nausea and Vomiting (N/V). amoxicillin 2021-05 Yes [id number] 1{tbl} Take 1 Univers -clavulanat 2-01 [id number] tablet by i ty of e 875-125 00:00: mouth [place] mg per 00 every 12 Medical tablet (twelve) Branch hours. ondansetron 2021-05 Yes [id number] 4mg Take 1 Univers 4 mg 2- [id number] tablet by ity of disintegrat 00:00: mouth [place] ing tablet 00 every 8 Medica l (eight) Branch hours as needed for Nausea and Vomiting (N/V). amoxicillin 2021-05 Yes [id number] 1{tbl} Take 1 Univers -clavulanat 2-01 [id number] tablet by i ty of e 875-125 00:00: mouth [place] mg per 00 every 12 Medical tablet (twelve) Branch hours. ondansetron 2021-05 Yes [id number] 4mg Take 1 Univers 4 mg 2- [id number] tablet by ity of disintegrat 00:00: mouth [place] ing tablet 00 every 8 Medica l (eight) Branch hours as needed for Nausea and Vomiting (N/V). amoxicillin 2021-05 Yes [id number] 1{tbl} Take 1 Univers -clavulanat 2-01 [id number] tablet by i ty of e 875-125 00:00: mouth [place] mg per 00 every 12 Medical tablet (twelve) Branch hours. ondansetron 2021-05 Yes [id number] 4mg Take 1 Univers 4 mg 2-01 [id number] tablet by ity of disintegrat 00:00: mouth [place] ing tablet 00 every 8 Medica l (eight) Branch hours as needed for Nausea and Vomiting (N/V). amoxicillin 2021-05 Yes [id number] 1{tbl} Take 1 Univers -clavulanat 2-01 [id number] tablet by i ty of e 875-125 00:00: mouth [place] mg per 00 every 12 Medical tablet (twelve) Branch hours. ondansetron 2021-05 Yes [id number] 4mg Take 1 Univers 4 mg 2-01 [id number] tablet by ity of disintegrat 00:00: mouth [place] ing tablet 00 every 8 Medica l (eight) Branch hours as needed for Nausea and Vomiting (N/V). amoxicillin 2021-05 Yes [id number] 1{tbl} Take 1 Univers -clavulanat 2-01 [id number] tablet by i ty of e 875-125 00:00: mouth [place] mg per 00 every 12 Medical tablet (twelve) Branch hours. ondansetron 2021-05 Yes [id number] 4mg Take 1 Univers 4 mg 2- [id number] tablet by ity of disintegrat 00:00: mouth [place] ing tablet 00 every 8 Medica l (eight) Branch hours as needed for Nausea and Vomiting (N/V). amoxicillin 2021-05 Yes [id number] 1{tbl} Take 1 Univers -clavulanat 2-01 [id number] tablet by i ty of e 875-125 00:00: mouth [place] mg per 00 every 12 Medical tablet (twelve) Branch hours. ondansetron 2021-05 Yes [id number] 4mg Take 1 Univers 4 mg 2- [id number] tablet by ity of disintegrat 00:00: mouth [place] ing tablet 00 every 8 Medica l (eight) Branch hours as needed for Nausea and Vomiting (N/V). amoxicillin 2021-05 Yes [id number] 1{tbl} Take 1 Univers -clavulanat 2-01 [id number] tablet by i ty of e 875-125 00:00: mouth [place] mg per 00 every 12 Medical tablet (twelve) Branch hours. ondansetron 2021-05 Yes [id number] 4mg Take 1 Univers 4 mg 2-01 [id number] tablet by ity of disintegrat 00:00: mouth [place] ing tablet 00 every 8 Medica l (eight) Branch hours as needed for Nausea and Vomiting (N/V). amoxicillin 2021-05 Yes [id number] 1{tbl} Take 1 Univers -clavulanat 2-01 [id number] tablet by i ty of e 875-125 00:00: mouth [place] mg per 00 every 12 Medical tablet (twelve) Branch hours. ondansetron 2021-05 Yes [id number] 4mg Take 1 Univers 4 mg 2-01 [id number] tablet by ity of disintegrat 00:00: mouth [place] ing tablet 00 every 8 Medica l (eight) Branch hours as needed for Nausea and Vomiting (N/V). amoxicillin 2021-05 Yes [id number] 1{tbl} Take 1 Univers -clavulanat 2-01 [id number] tablet by i ty of e 875-125 00:00: mouth [place] mg per 00 every 12 Medical tablet (twelve) Branch hours. ondansetron 2021-05 Yes [id number] 4mg Take 1 Univers 4 mg 2-01 [id number] tablet by ity of disintegrat 00:00: mouth [place] ing tablet 00 every 8 Medica l (eight) Branch hours as needed for Nausea and Vomiting (N/V). amoxicillin 2021-05 Yes [id number] 1{tbl} Take 1 Univers -clavulanat 2-01 [id number] tablet by i ty of e 875-125 00:00: mouth [place] mg per 00 every 12 Medical tablet (twelve) Branch hours. ondansetron 2021-05 Yes [id number] 4mg Take 1 Univers 4 mg 2- [id number] tablet by ity of disintegrat 00:00: mouth [place] ing tablet 00 every 8 Medica l (eight) Branch hours as needed for Nausea and Vomiting (N/V). amoxicillin 2021-05 Yes [id number] 1{tbl} Take 1 Univers -clavulanat 2-01 [id number] tablet by i ty of e 875-125 00:00: mouth [place] mg per 00 every 12 Medical tablet (twelve) Branch hours. ondansetron 2021-05 Yes [id number] 4mg Take 1 Univers 4 mg 2-01 [id number] tablet by ity of disintegrat 00:00: mouth [place] ing tablet 00 every 8 Medica l (eight) Branch hours as needed for Nausea and Vomiting (N/V). zoster 2021-05- No [id number] .5mL 0.5 mL by [facility] vaccine, 0-14 10-15 9104 Intr[facility] ity of recombinant 00:00: 04:59 lar route [place] (SHINGRIX, 00 :00 once now Medic al PF,) for 1 Branch injection dose. And repeat in 2-6 months zoster 2021-05- No [id number] .5mL 0.5 mL by [facility] vaccine, 0- 9104 Intramuscu ity of recombinant 00:00: 04:59 lar route [place] (SHINGRIX, 00 :00 once now Medic al PF,) for 1 Branch injection dose. And repeat in 2-6 months zoster 2021-05- No [id number] .5mL 0.5 mL by [facility] vaccine, 0-04 Intramuscu ity of recombinant 00:00: 04:59 lar [...] o f 1 mg tablet 19:28: at [place] [address] bedtime. Medical Branch traZODone 0 Yes 50mg Take 50 mg Un matt 100 mg 9-27 by mouth ity of tablet 19:28: at [place] [address] bedtime. Medical Branch hydralAZINE 0 Yes 25mg [...] o f 1 mg tablet 19:28: at [place] [address] bedtime. Medical Branch traZODone 2021-0 Yes 50mg Take 50 mg Un matt 100 mg 9-27 by mouth ity of tablet 19:28: at [place] [address] bedtime. Medical Branch hydralAZINE 2021-0 Yes 25mg [...] o f 1 mg tablet 19:28: at [place] [address] bedtime. Medical Branch traZODone 2021-0 Yes 50mg Take 50 mg Un matt 100 mg 9-27 by mouth ity of tablet 19:28: at [place] [address] bedtime. Medical Branch hydralAZINE 2021-0 Yes 25mg [...] o f 1 mg tablet 19:28: at [place] [address] bedtime. Medical Branch traZODone 2021-0 Yes 50mg Take 50 mg Un matt 100 mg 9- by mouth ity of tablet 19:28: at [place] [address] bedtime. Medical Branch hydralAZINE 2021-0 Yes 25mg [...] o f 1 mg tablet 19:28: at [place] [address] bedtime. Medical Branch traZODone 2022-0 Yes 50mg Take 50 mg Un matt 100 mg 9-27 by mouth ity of tablet 19:28: at [place] [address] bedtime. Medical Branch hydralAZINE 2-0 Yes 25mg [...] o f 1 mg tablet 19:28: at [place] [address] bedtime. Medical Branch traZODone 2-0 Yes 50mg Take 50 mg Un matt 100 mg 9-27 by mouth ity of tablet 19:28: at [place] [address] bedtime. Medical Branch hydralAZINE 2021-0 Yes 25mg [...] o f 1 mg tablet 19:28: at [place] [address] bedtime. Medical Branch traZODone 2022-0 Yes 50mg Take 50 mg Un matt 100 mg 9-27 by mouth ity of tablet 19:28: at [place] [address] bedtime. Medical Branch hydralAZINE 2-0 Yes 25mg [...] o f 1 mg tablet 19:28: at [place] [address] bedtime. Medical Branch traZODone 2-0 Yes 50mg Take 50 mg Un matt 100 mg 9-27 by mouth ity of tablet 19:28: at [place] [address] bedtime. Medical Branch hydralAZINE 2-0 Yes 25mg [...] o f 1 mg tablet 19:28: at [place] [address] bedtime. Medical Branch traZODone 2021-0 Yes 50mg Take 50 mg Un matt 100 mg 9-27 by mouth ity of tablet 19:28: at [place] [address] bedtime. Medical Branch hydralAZINE 2021-0 Yes 25mg [...] o f 1 mg tablet 19:28: at [place] [address] bedtime. Medical Branch traZODone 2021-0 Yes 50mg Take 50 mg Un matt 100 mg 9-27 by mouth ity of tablet 19:28: at [place] [address] bedtime. Medical Branch hydralAZINE 2021-0 Yes 25mg [...] o f 1 mg tablet 19:28: at [place] [address] bedtime. Medical Branch traZODone 2-0 Yes 50mg Take 50 mg Un matt 100 mg 9-27 by mouth ity of tablet 19:28: at [place] [address] bedtime. Medical Branch hydralAZINE 2-0 Yes 25mg [...] o f 1 mg tablet 19:28: at [place] [address] bedtime. Medical Branch traZODone 2021-0 Yes 50mg Take 50 mg Un matt 100 mg 9-27 by mouth ity of tablet 19:28: at [place] [address] bedtime. Medical Branch hydralAZINE 2021-0 Yes 25mg [...] o f 1 mg tablet 19:28: at [place] [address] bedtime. Medical Branch traZODone 2021-0 Yes 50mg Take 50 mg Un matt 100 mg 9-27 by mouth ity of tablet 19:28: at [place] [address] bedtime. Medical Branch hydralAZINE 2021-0 Yes 25mg [...] mouth ity of 10 mg 19:28: daily. [place] tablet 04 Medical Branch clonazePAM 2021-0 Yes 1mg Take 1 mg Un matt (KLONOPIN) 9-27 by mouth ity o f 1 mg tablet 19:28: at [place] [address] bedtime. Medical Branch traZODone 2021-0 Yes 50mg Take 50 mg Un matt 100 mg 9-27 by mouth ity of tablet 19:28: at [place] [address] bedtime. Medical Branch hydralAZINE 2021-0 Yes 25mg [...] o f 1 mg tablet 19:28: at [place] [address] bedtime. Medical Branch traZODone 2021-0 Yes 50mg Take 50 mg Un matt 100 mg 9-27 by mouth ity of tablet 19:28: at [place] [address] bedtime. Medical Branch hydralAZINE 2021-0 Yes 25mg [...] 100 mg 04 (two) Medical tablet times [place] daily. amLODIPine 2021-0 Yes 10mg Take 10 mg U nivers (NORVASC) 9- by mouth ity of 10 mg 19:28: daily. [place] tablet 04 Medical Branch clonazePAM 2021-0 Yes 1mg Take 1 mg Un matt (KLONOPIN) 9- by mouth ity o f 1 mg tablet 19:28: at [place] [address] bedtime. Medical Branch traZODone 2021-0 Yes 50mg Take 50 mg Un matt 100 mg 9-27 by mouth ity of tablet 19:28: at [place] [address] bedtime. Medical Branch hydralAZINE 2-0 Yes 25mg [...] o f 1 mg tablet 19:28: at [place] [address] bedtime. Medical Branch traZODone 2021-0 Yes 50mg Take 50 mg Un matt 100 mg 9-27 by mouth ity of tablet 19:28: at [place] [address] bedtime. Medical Branch hydralAZINE 2021-0 Yes 25mg [...] 100 mg 04 (two) Medical tablet times [place] daily. amLODIPine 2021-0 Yes 10mg Take 10 mg U nivers (NORVASC) 9-27 by mouth ity of 10 mg 19:28: daily. [place] tablet 04 Medical Branch clonazePAM 2021-0 Yes 1mg Take 1 mg Un matt (KLONOPIN) 9-27 by mouth ity o f 1 mg tablet 19:28: at [place] [address] bedtime. Medical Branch traZODone 2021-0 Yes 50mg Take 50 mg Un matt 100 mg 9-27 by mouth ity of tablet 19:28: at [place] [address] bedtime. Medical Branch hydralAZINE 2021-0 Yes 25mg [...] o f 1 mg tablet 19:28: at [place] [address] bedtime. Medical Branch traZODone 2021-0 Yes 50mg Take 50 mg Un matt 100 mg 9- by mouth ity of tablet 19:28: at [place] [address] bedtime. Medical Branch hydralAZINE 2021-0 Yes 25mg [...] o f 1 mg tablet 19:28: at [place] [address] bedtime. Medical Branch traZODone 2021-0 Yes 50mg Take 50 mg Un matt 100 mg 9-27 by mouth ity of tablet 19:28: at [place] [address] bedtime. Medical Branch hydralAZINE 2021-0 Yes 25mg [...] 100 mg 04 (two) Medical tablet times [place] daily. amLODIPine Yes 10mg Take 10 mg U nivers (NORVASC) 02-16 by mouth ity of 10 mg 19:28: daily. [place] tablet 04 [facility] Branch clonazePAM Yes 1mg Take 1 mg Un matt (KLONOPIN) 02-16 by mouth ity o f 1 mg tablet 19:28: at [place] [address] bedtime. Medical Branch traZODone Yes 50mg Take 50 mg Un matt 100 mg 02-16 by mouth ity of tablet 19:28: at [place] [address] bedtime. Medical Branch cefpodoxime 2021- No [id number] 200mg Take 1 [facility] 200 mg 02-16 tablet by ity of tablet 00:00: 04:59 mouth in [place] 00 :00 the Medical morning Branch and 1 tablet in the evening. Do all this for 3 days. cefpodoxime 2021-0 2021- No [id number] 200mg Take 1 [facility] 200 mg 02-16 tablet by ity of tablet 00:00: 04:59 mouth in [place] 00 :00 the [facility] [...] First dose [place] mg 00 on [facility] 02/13/22 at Branch 1200, Until Discontinu ed, Routine tiZANidine Yes 4mg 4 mg, Univer s (ZANAFLEX) 02-12 Oral, Q8H, ity of tablet 4 mg 19:00: First dose [place] 00 on Tue [facility] 02/12/22 at Branch 1400, Until Discontinu ed, Routine HYDROmorpho Yes 4mg 4 mg, Unive rs ne 02-12 Oral, ity of (DILAUDID) 17:37: Q6HPRN, [place] tablet 4 mg 07 Starting Medi porfirio on Tue [place] 02/12/22 at 1237, Until Discontinu ed, Routine, Pain (scale 4-6) morpHINE (2 2021- No 2mg 2 mg, Slow [facility] mg/mL) 02-12 IV Push, ity of injection 2 17:36: 20:36 Q6HPRN, [place] mg 46 :24 Starting Medical on Tue [place] 02/12/22 at 1236, Until 02/14/22 at 1536, Routine, Pain (scale 7-10) cefTRIAXone 2021-0 2021- No 2000mg 2,000 mg, Univers (ROCEPHIN) 02-12 IV ity of 2,000 mg in 17:00: 18:24 Piggyback, [place] NaCl 0.9% 00 :00 Q24H ABX, Medic al (NS) 100 mL 5 doses, Bran ch MINI-BAG First dose on Tue02/12/22 at 1200, Last dose on Tue02/16/22 at 1200, Administer over 30 Minutes, 100 mL
Reas on for Anti-Infec tive: Documented Infection< br>Lc munson Infection Site: Urine
D uration of Therapy: [...] [place] mg 00 on [facility] [...] First dose Medi porfirio tablet 1 on [facility] Branch tablet 02/11/22 at 1300, Until [...] 02-11 Oral, ity of sodium 14:06: QDAILYPRN, [place] (SENOKOT-S) 09 Starting Medi porfirio 8.6-50 [...] of therapy: 72 hours iopamidol 2021- No [id number] 60mL 60 mL, Univers (ISOVUE 02-11 Intravenou [...] Branch 02/11/22 at 0015, JOE emtricitabi Yes [id number] Take one [facility] ne-tenofovi 9-12 po daily ity of r alafen 00:00: [place] (DESCOVY) 00 Medical tablet Branch emtricitabi Yes [id number] Take one [facility] ne-tenofovi 9-12 po daily ity of r alafen 00:00: [place] (DESCOVY) 00 Medical tablet Branch emtricita Yes [id number] Take one [facility] ne-tenofovi 9-12 po daily ity of r alafen 00:00: [place] (DESCOVY) 00 Medical tablet Branch emtricitabi Yes [id number] Take one [facility] ne-tenofovi 9-12 po daily ity of r alafen 00:00: [place] (DESCOVY) 00 Medical tablet Branch emtricita Yes [id number] Take one [facility] ne-tenofovi 9-12 po daily ity of r alafen 00:00: [place] (DESCOVY) 00 Medical tablet Branch emtricita Yes [id number] Take one [facility] ne-tenofovi 9-12 po daily ity of r alafen 00:00: [place] (DESCOVY) 00 Medical tablet Branch emtricita Yes [id number] Take one [facility] ne-tenofovi 9-12 po daily ity of r alafen 00:00: [place] (DESCOVY) 00 Medical tablet Branch emtricita Yes [id number] Take one [facility] ne-tenofovi 9-12 po daily ity of r alafen 00:00: [place] (DESCOVY) 00 Medical tablet Branch emtricita Yes [id number] Take one [facility] ne-tenofovi 9-12 po daily ity of r alafen 00:00: [place] (DESCOVY) 00 Medical tablet Branch emtricita Yes [id number] Take one [facility] ne-tenofovi 9-12 po daily ity of r alafen 00:00: [place] (DESCOVY) 00 Medical tablet Branch emtricita Yes [id number] Take one [facility] ne-tenofovi 9-12 po daily ity of r alafen 00:00: [place] (DESCOVY) 00 Medical tablet Branch emtricitabi Yes [id number] Take one [facility] ne-tenofovi 9-12 po daily ity of r alafen 00:00: [place] (DESCOVY) 00 Medical tablet Branch emtricita 0 Yes [id number] Take one Univers ne-tenofovi 9-12 po daily ity of r alafen 00:00: [place] (DESCOVY) 00 Medical tablet Branch emtricitabi 2021-0 Yes [id number] Take one Univers ne-tenofovi 9-12 po daily ity of r alafen 00:00: [place] (DESCOVY) 00 Medical tablet Branch emtricitabi 2021-0 Yes [id number] Take one Univers ne-tenofovi 9-12 po daily ity of r alafen 00:00: [place] (DESCOVY) 00 Medical tablet Branch emtricitabi 2021-0 Yes [id number] Take one Univers ne-tenofovi 9-12 po daily ity of r alafen 00:00: [place] (DESCOVY) 00 Medical tablet Branch emtricitabi 2021-0 Yes [id number] Take one Univers ne-tenofovi 9-12 po daily ity of r alafen 00:00: [place] (DESCOVY) 00 Medical tablet Branch emtricitabi 2021-0 2023- No [id number] Take one Univers ne-tenofovi 9-12 04-04 po daily ity of r alafen 00:00: 00:00 [place] (DESCOVY) 00 :00 Medical tablet Branch emtricitabi 2021-0 2023- No [id number] Take one Univers ne-tenofovi 9-12 04-04 po daily ity of r alafen 00:00: 00:00 [place] (DESCOVY) 00 :00 Medical tablet Branch naproxen 2021-0 Yes [id number] 500mg Take 1 U nivers (NAPROSYN) 7-24 tablet by ity of 500 mg 00:00: mouth in [place] tablet 00 the Medical morning Branch and 1 tablet in the evening. Take with meals. methocarbam 2021-0 Yes [id number] 500mg Take 1 [facility] oL 500 mg 7-24 tablet by ity o f tablet 00:00: mouth 4 [place] 00 (four) Medical times Branch daily. naproxen 2021-0 Yes [id number] 500mg Take 1 U nivers (NAPROSYN) 7-24 tablet by ity of 500 mg 00:00: mouth in [place] tablet 00 the Medical morning Branch and 1 tablet in the evening. Take with meals. methocarbam 2021-0 Yes [id number] 500mg Take 1 [facility] oL 500 mg 7-24 tablet by ity o f tablet 00:00: mouth 4 [place] 00 (four) Medical times Branch daily. naproxen 2021-0 Yes [id number] 500mg Take 1 U nivers (NAPROSYN) 7-24 tablet by ity of 500 mg 00:00: mouth in [place] tablet 00 the Medical morning Branch and 1 tablet in the evening. Take with meals. methocarbam 2021-0 Yes [id number] 500mg Take 1 [facility] oL 500 mg 7-24 tablet by ity o f tablet 00:00: mouth 4 [place] 00 (four) Medical times Branch daily. naproxen 2021-0 2021- No [id number] 500mg Take 1 [facility] (NAPROSYN) 7-24 10-14 tablet by ity of 500 mg 00:00: 00:00 mouth in [place] tablet 00 :00 the Medical morning Branch and 1 tablet in the evening. Take with meals. methocarbam 2021-0 2021- No [id number] 500mg Take 1 [facility] oL 500 mg 7-24 10-14 tablet by ity of tablet 00:00: 00:00 mouth 4 [place] 00 :00 (four) Medical times [place] daily. naproxen 2021-2021- No [id number] 500mg Take 1 [facility] (NAPROSYN) 7-24 10-14 tablet by ity of 500 mg 00:00: 00:00 mouth in [place] tablet 00 :00 the Medical morning Branch and 1 tablet in the evening. Take with meals. methocarbam 2021-0 2021- No [id number] 500mg Take 1 [facility] oL 500 mg 7-24 10-14 tablet by ity of tablet 00:00: 00:00 mouth 4 [place] 00 :00 (four) Medical times [place] daily. esomeprazol 2021- No 40mg Take 40 [...] Branch traZODONE 2021- No Take by [facility] ers (DESYREL) 11-20 mouth at ity o f 10 mg/mL 09:10: 00:00 [place]time. [place] oral 28 :00 Medical suspension Branch hydralAZINE Yes 25mg Take 25 mg [facility] (APRESOLINE 11-20 by mouth ity of ) 25 mg 08:47: daily. [place] tablet 47 Medical Branch cephALEXin 2021- No [id number] 500mg Take 1 [facility] (KEFLEX) 10-24 capsule [...] 7-10). Indication s: acute pain buPROPion Yes [id number] 150mg Take 1 U nivers XL 4-12 tablet by ity of (WELLBUTRIN 00:00: mouth [place] XL) 150 mg 00 daily. Medical 24 hr Branch tablet busPIRone Yes [id number] 30mg Take 1 Un matt 30 mg 4-12 tablet by ity of tablet 00:00: mouth 2 [place] 00 (two) Medical times Branch daily. SERTraline Yes [id number] 200mg Take 2 [facility] 100 mg 4-12 tablets by ity of tablet 00:00: mouth [place] 00 daily. Medical Branch buPROPion Yes [id number] 150mg Take 1 U nivers XL 4-12 tablet by ity of (WELLBUTRIN 00:00: mouth [place] XL) 150 mg 00 daily. Medical 24 hr Branch tablet busPIRone Yes [id number] 30mg Take 1 Un matt 30 mg 4-12 tablet by ity of tablet 00:00: mouth 2 [place] 00 (two) Medical times Branch daily. SERTraline 2021-0 Yes [id number] 200mg Take 2 [facility] 100 mg 4-12 tablets by ity of tablet 00:00: mouth [place] 00 daily. Medical Branch buPROPion 2021-0 Yes [id number] 150mg Take 1 U nivers XL 4-12 tablet by ity of (WELLBUTRIN 00:00: mouth [place] XL) 150 mg 00 daily. Medical 24 hr Branch tablet busPIRone 2021-0 Yes [id number] 30mg Take 1 Un matt 30 mg 4-12 tablet by ity of tablet 00:00: mouth 2 [place] 00 (two) Medical times Branch daily. SERTraline 2021-0 Yes [id number] 200mg Take 2 [facility] 100 mg 4-12 tablets by ity of tablet 00:00: mouth [place] 00 daily. Medical Branch buPROPion 2021-0 Yes [id number] 150mg Take 1 U nivers XL 4-12 tablet by ity of (WELLBUTRIN 00:00: mouth [place] XL) 150 mg 00 daily. Medical 24 hr Branch tablet busPIRone 2021-0 Yes [id number] 30mg Take 1 Un matt 30 mg 4-12 tablet by ity of tablet 00:00: mouth 2 00 (two) Medical times Branch daily. SERTraline 2021-0 Yes [id number] 200mg Take 2 [facility] 100 mg 4-12 tablets by ity of tablet 00:00: mouth [place] 00 daily. Medical Branch buPROPion 2021-0 Yes [id number] 150mg Take 1 U nivers XL 4-12 tablet by ity of (WELLBUTRIN 00:00: mouth [place] XL) 150 mg 00 daily. Medical 24 hr Branch tablet busPIRone 2021-0 Yes [id number] 30mg Take 1 Un matt 30 mg 4-12 tablet by ity of tablet 00:00: mouth 2 [place] 00 (two) Medical times Branch daily. SERTraline 2021-0 Yes [id number] 200mg Take 2 [facility] 100 mg 4-12 tablets by ity of tablet 00:00: mouth [place] 00 daily. Medical Branch buPROPion 2021-0 Yes [id number] 150mg Take 1 U nivers XL 4-12 tablet by ity of (WELLBUTRIN 00:00: mouth [place] XL) 150 mg 00 daily. Medical 24 hr Branch tablet busPIRone 2021-0 Yes [id number] 30mg Take 1 Un matt 30 mg 4-12 tablet by ity of tablet 00:00: mouth 2 [place] 00 (two) Medical times Branch daily. SERTraline 2021-0 Yes [id number] 200mg Take 2 [facility] 100 mg 4-12 tablets by ity of tablet 00:00: mouth [place] 00 daily. Medical Branch buPROPion 2021-0 Yes [id number] 150mg Take 1 U nivers XL 4-12 tablet by ity of (WELLBUTRIN 00:00: mouth [place] XL) 150 mg 00 daily. Medical 24 hr Branch tablet busPIRone 2021-0 Yes [id number] 30mg Take 1 Un matt 30 mg 4-12 tablet by ity of tablet 00:00: mouth 2 [place] 00 (two) Medical times Branch daily. SERTraline 2021-0 Yes [id number] 200mg Take 2 [facility] 100 mg 4-12 tablets by ity of tablet 00:00: mouth [place] 00 daily. Medical Branch buPROPion 2021-0 Yes [id number] 150mg Take 1 U nivers XL 4-12 tablet by ity of (WELLBUTRIN 00:00: mouth [place] XL) 150 mg 00 daily. Medical 24 hr Branch tablet busPIRone 2021-0 Yes [id number] 30mg Take 1 Un matt 30 mg 4-12 tablet by ity of tablet 00:00: mouth 2 [place] 00 (two) Medical times Branch daily. SERTraline 2021-0 Yes [id number] 200mg Take 2 [facility] 100 mg 4-12 tablets by ity of tablet 00:00: mouth [place] 00 daily. Medical Branch buPROPion 2021-0 Yes [id number] 150mg Take 1 U nivers XL 4-12 tablet by ity of (WELLBUTRIN 00:00: mouth [place] XL) 150 mg 00 daily. Medical 24 hr Branch tablet busPIRone 2021-0 Yes [id number] 30mg Take 1 Un matt 30 mg 4-12 tablet by ity of tablet 00:00: mouth 2 [place] 00 (two) Medical times Branch daily. SERTraline 2021-0 Yes [id number] 200mg Take 2 [facility] 100 mg 4-12 tablets by ity of tablet 00:00: mouth [place] 00 daily. Medical Branch buPROPion 2021-0 Yes [id number] 150mg Take 1 U nivers XL 4-12 tablet by ity of (WELLBUTRIN 00:00: mouth [place] XL) 150 mg 00 daily. Medical 24 hr Branch tablet busPIRone 2021-0 Yes [id number] 30mg Take 1 Un matt 30 mg 4-12 tablet by ity of tablet 00:00: mouth 2 [place] 00 (two) Medical times Branch daily. SERTraline 2021-0 Yes [id number] 200mg Take 2 [facility] 100 mg 4-12 tablets by ity of tablet 00:00: mouth [place] 00 daily. Medical Branch buPROPion 2021-0 Yes [id number] 150mg Take 1 U nivers XL 4-12 tablet by ity of (WELLBUTRIN 00:00: mouth [place] XL) 150 mg 00 daily. Medical 24 hr Branch tablet busPIRone 2021-0 Yes [id number] 30mg Take 1 Un matt 30 mg 4-12 tablet by ity of tablet 00:00: mouth 2 00 (two) Medical times Branch daily. SERTraline 2021-0 Yes [id number] 200mg Take 2 [facility] 100 mg 4-12 tablets by ity of tablet 00:00: mouth [place] 00 daily. Medical Branch buPROPion 2021-0 Yes [id number] 150mg Take 1 U nivers XL 4-12 tablet by ity of (WELLBUTRIN 00:00: mouth [place] XL) 150 mg 00 daily. Medical 24 hr Branch tablet busPIRone 2021-0 Yes [id number] 30mg Take 1 Un matt 30 mg 4-12 tablet by ity of tablet 00:00: mouth 2 [place] 00 (two) Medical times Branch daily. SERTraline 2021-0 Yes [id number] 200mg Take 2 [facility] 100 mg 4-12 tablets by ity of tablet 00:00: mouth [place] 00 daily. Medical Branch buPROPion 2021-0 Yes [id number] 150mg Take 1 U nivers XL 4-12 tablet by ity of (WELLBUTRIN 00:00: mouth [place] XL) 150 mg 00 daily. Medical 24 hr Branch tablet busPIRone 2021-0 Yes [id number] 30mg Take 1 Un matt 30 mg 4-12 tablet by ity of tablet 00:00: mouth 2 [place] 00 (two) Medical times Branch daily. SERTraline 2022-0 Yes [id number] 200mg Take 2 [facility] 100 mg 4-12 tablets by ity of tablet 00:00: mouth [place] 00 daily. Medical Branch buPROPion 0 Yes [id number] 150mg Take 1 U nivers XL 4-12 tablet by ity of (WELLBUTRIN 00:00: mouth [place] XL) 150 mg 00 daily. Medical 24 hr Branch tablet busPIRone 2021-0 Yes [id number] 30mg Take 1 Un matt 30 mg 4-12 tablet by ity of tablet 00:00: mouth 2 [place] 00 (two) Medical times Branch daily. SERTraline 0 Yes [id number] 200mg Take 2 [facility] 100 mg 4-12 tablets by ity of tablet 00:00: mouth [place] 00 daily. Medical Branch buPROPion 0 Yes [id number] 150mg Take 1 U nivers XL 4-12 tablet by ity of (WELLBUTRIN 00:00: mouth [place] XL) 150 mg 00 daily. Medical 24 hr Branch tablet busPIRone 0 Yes [id number] 30mg Take 1 Un matt 30 mg 4-12 tablet by ity of tablet 00:00: mouth 2 [place] 00 (two) Medical times Branch daily. SERTraline 0 Yes [id number] 200mg Take 2 [facility] 100 mg 4-12 tablets by ity of tablet 00:00: mouth [place] 00 daily. Medical Branch buPROPion 0 Yes [id number] 150mg Take 1 U nivers XL 4-12 tablet by ity of (WELLBUTRIN 00:00: mouth [place] XL) 150 mg 00 daily. Medical 24 hr Branch tablet busPIRone 2021-0 Yes [id number] 30mg Take 1 Un matt 30 mg 4-12 tablet by ity of tablet 00:00: mouth 2 [place] 00 (two) Medical times Branch daily. SERTraline 2021-0 Yes [id number] 200mg Take 2 [facility] 100 mg 4-12 tablets by ity of tablet 00:00: mouth [place] 00 daily. Medical Branch buPROPion 0 Yes [id number] 150mg Take 1 U nivers XL 4-12 tablet by ity of (WELLBUTRIN 00:00: mouth [place] XL) 150 mg 00 daily. Medical 24 hr Branch tablet busPIRone 2022-0 Yes [id number] 30mg Take 1 Un matt 30 mg 4-12 tablet by ity of tablet 00:00: mouth 2 [place] 00 (two) Medical times Branch daily. SERTraline 0 Yes [id number] 200mg Take 2 [facility] 100 mg 4-12 tablets by ity of tablet 00:00: mouth [place] 00 daily. Medical Branch buPROPion 0 Yes [id number] 150mg Take 1 U nivers XL 4-12 tablet by ity of (WELLBUTRIN 00:00: mouth [place] XL) 150 mg 00 daily. Medical 24 hr Branch tablet busPIRone Yes [id number] 30mg Take 1 Un matt 30 mg 4-12 tablet by ity of tablet 00:00: mouth 2 [place] 00 (two) Medical times Branch daily. SERTraline Yes [id number] 200mg Take 2 [facility] 100 mg 4-12 tablets by ity of tablet 00:00: mouth [place] 00 daily. Medical Branch buPROPion Yes [id number] 150mg Take 1 U nivers XL 4-12 tablet by ity of (WELLBUTRIN 00:00: mouth [place] XL) 150 mg 00 daily. Medical 24 hr Branch tablet busPIRone Yes [id number] 30mg Take 1 Un matt 30 mg 4-12 tablet by ity of tablet 00:00: mouth 2 [place] 00 (two) Medical times Branch daily. SERTraline Yes [id number] 200mg Take 2 [facility] 100 mg 4-12 tablets by ity of tablet 00:00: mouth [place] 00 daily. Medical Branch buPROPion 0 Yes [id number] 150mg Take 1 U nivers XL 4-12 tablet by ity of (WELLBUTRIN 00:00: mouth [place] XL) 150 mg 00 daily. Medical 24 hr Branch tablet busPIRone 0 Yes [id number] 30mg Take 1 Un matt 30 mg 4-12 tablet by ity of tablet 00:00: mouth 2 [place] 00 (two) Medical times Branch daily. SERTraline 0 Yes [id number] 200mg Take 2 [facility] 100 mg 4-12 tablets by ity of tablet 00:00: mouth [place] 00 daily. Medical Branch buPROPion 0 Yes [id number] 150mg Take 1 U nivers XL 4-12 tablet by ity of (WELLBUTRIN 00:00: mouth [place] XL) 150 mg 00 daily. Medical 24 hr Branch tablet busPIRone 2021-0 Yes [id number] 30mg Take 1 Un matt 30 mg 4-12 tablet by ity of tablet 00:00: mouth 2 [place] 00 (two) Medical times Branch daily. SERTraline 2021-0 Yes [id number] 200mg Take 2 [facility] 100 mg 4-12 tablets by ity of tablet 00:00: mouth [place] 00 daily. Medical Branch buPROPion 2021-0 Yes [id number] 150mg Take 1 U nivers XL 4-12 tablet by ity of (WELLBUTRIN 00:00: mouth [place] XL) 150 mg 00 daily. Medical 24 hr Branch tablet busPIRone 2021-0 Yes [id number] 30mg Take 1 Un matt 30 mg 4-12 tablet by ity of tablet 00:00: mouth 2 [place] 00 (two) Medical times Branch daily. SERTraline 2021-0 Yes [id number] 200mg Take 2 [facility] 100 mg 4-12 tablets by ity of tablet 00:00: mouth [place] 00 daily. Medical Branch buPROPion 2021-0 Yes [id number] 150mg Take 1 U nivers XL 4-12 tablet by ity of (WELLBUTRIN 00:00: mouth [place] XL) 150 mg 00 daily. Medical 24 hr Branch tablet busPIRone 2021-0 Yes [id number] 30mg Take 1 Un matt 30 mg 4-12 tablet by ity of tablet 00:00: mouth 2 [place] 00 (two) Medical times Branch daily. SERTraline 2021-0 Yes [id number] 200mg Take 2 [facility] 100 mg 4-12 tablets by ity of tablet 00:00: mouth [place] 00 daily. Medical Branch raltegravir 2021-0 Yes [id number] 400mg Take 1 [facility] (ISENTRESS) 3-28 tablet by ity of 400 mg 00:00: mouth 2 [place] tablet 00 (two) Medical times Branch daily. raltegravir 2021-0 Yes [id number] 400mg Take 1 [facility] (ISENTRESS) 3-28 tablet by ity of 400 mg 00:00: mouth 2 [place] tablet 00 (two) Medical times Branch daily. raltegravir 2021-0 Yes [id number] 400mg Take 1 [facility] (ISENTRESS) 3-28 tablet by ity of 400 mg 00:00: mouth 2 [place] tablet 00 (two) Medical times Branch daily. raltegravir 2-0 Yes [id number] 400mg Take 1 [facility] (ISENTRESS) 3-28 tablet by ity of 400 mg 00:00: mouth 2 [place] tablet 00 (two) Medical times Branch daily. raltegravir 2021-0 Yes [id number] 400mg Take 1 [facility] (ISENTRESS) 3-28 tablet by ity of 400 mg 00:00: mouth 2 [place] tablet 00 (two) Medical times Branch daily. raltegravir 2021-0 Yes [id number] 400mg Take 1 Univers (ISENTRESS) 3-28 tablet by ity of 400 mg 00:00: mouth 2 [place] tablet 00 (two) Medical times Branch daily. raltegravir 2021-0 Yes [id number] 400mg Take 1 [facility] (ISENTRESS) 3-28 tablet by ity of 400 mg 00:00: mouth 2 [place] tablet 00 (two) Medical times Branch daily. raltegravir 2021-0 Yes [id number] 400mg Take 1 [facility] (ISENTRESS) 3-28 tablet by ity of 400 mg 00:00: mouth 2 [place] tablet 00 (two) Medical times Branch daily. raltegravir 2021-0 Yes [id number] 400mg Take 1 [facility] (ISENTRESS) 3-28 tablet by ity of 400 mg 00:00: mouth 2 [place] tablet 00 (two) Medical times Branch daily. raltegravir 2-0 Yes [id number] 400mg Take 1 [facility] (ISENTRESS) 3-28 tablet by ity of 400 mg 00:00: mouth 2 [place] tablet 00 (two) Medical times Branch daily. raltegravir 2-0 Yes [id number] 400mg Take 1 [facility] (ISENTRESS) 3-28 tablet by ity of 400 mg 00:00: mouth 2 [place] tablet 00 (two) Medical times Branch daily. raltegravir 2022-0 Yes [id number] 400mg Take 1 [facility] (ISENTRESS) 3-28 tablet by ity of 400 mg 00:00: mouth 2 [place] tablet 00 (two) Medical times Branch daily. raltegravir 2022-0 Yes [id number] 400mg Take 1 [facility] (ISENTRESS) 3-28 tablet by ity of 400 mg 00:00: mouth 2 [place] tablet 00 (two) Medical times Branch daily. raltegravir 2021-0 Yes [id number] 400mg Take 1 [facility] (ISENTRESS) 3-28 tablet by ity of 400 mg 00:00: mouth 2 [place] tablet 00 (two) Medical times Branch daily. raltegravir 2021-0 Yes [id number] 400mg Take 1 [facility] (ISENTRESS) 3-28 tablet by ity of 400 mg 00:00: mouth 2 [place] tablet 00 (two) Medical times Branch daily. raltegravir 0 Yes [id number] 400mg Take 1 [facility] (ISENTRESS) 3-28 tablet by ity of 400 mg 00:00: mouth 2 [place] tablet 00 (two) Medical times Branch daily. raltegravir 0 Yes [id number] 400mg Take 1 [facility] (ISENTRESS) 3-28 tablet by ity of 400 mg 00:00: mouth 2 [place] tablet 00 (two) Medical times Branch daily. raltegravir 0 Yes [id number] 400mg Take 1 [facility] (ISENTRESS) 3-28 tablet by ity of 400 mg 00:00: mouth 2 [place] tablet 00 (two) Medical times Branch daily. raltegravir 2021-0 Yes [id number] 400mg Take 1 [facility] (ISENTRESS) 3-28 tablet by ity of 400 mg 00:00: mouth 2 [place] tablet 00 (two) Medical times Branch daily. raltegravir 2021-0 Yes [id number] 400mg Take 1 [facility] (ISENTRESS) 3-28 tablet by ity of 400 mg 00:00: mouth 2 [place] tablet 00 (two) Medical times Branch daily. raltegravir 0 2022- No [id number] 400mg Take 1 [facility] (ISENTRESS) 3-28 05-08 tablet by it y of 400 mg 00:00: 00:00 mouth 2 [place] tablet 00 :00 (two) Medical times Branch daily. LORazepam 1 2021- No [id number] 1mg Take 1 [facility] mg tablet 3-21 07-01 tablet by ity of 00:00: 00:00 mouth [...] times a tablet day. emtricitabi 2021- No [id number] Take one [facility] ne-tenofovi -20 09-12 po daily ity of r alafen 00:00: 00:00 [place] (DESCOVY) 00 :00 Medical tablet Branch metoprolol Yes [id number] Take 1 [facility] tartrate 7-26 tablet [facility] (Lopressor) 00:00: (100 mg 100 MG 00 total) by tablet mouth 2 (two) times a day AND 0.5 tablets (50 mg total) every night. metoprolol Yes [id number] Take 1 [facility] tartrate 7-26 tablet [facility] [...] area in groin) hydrALAZINE 2021-0 Yes 50mg Q.[id number] Take 50 mg [facility] (APRESOLINE 7-19 [id number] [address] mouth 3 st ) 50 MG [...] (affected area in groin) hydrALAZINE Yes 50mg Q.[id number] Take 50 mg [facility] (APRESOLINE 7-19 [id number] [facility] mouth 3 st ) 50 MG [...] (affected area in groin) hydrALAZINE Yes 50mg Q.[id number] Take 50 mg [facility] (APRESOLINE 7-19 [id number] [facility] mouth 3 st ) 50 MG [...] area in groin) hydrALAZINE 0 Yes 50mg Q.[id number] Take 50 mg [facility] (APRESOLINE 7-19 [id number] by mouth 3 st ) 50 MG [...] (affected area in groin) hydrALAZINE Yes 50mg Q.[id number] Take 50 mg [facility] (APRESOLINE 7-19 [id number] by mouth 3 st ) 50 MG [...] (affected area in groin) hydrALAZINE Yes 50mg Q.[id number] Take 50 mg [facility] (APRESOLINE 7-19 [id number] [address] mouth 3 st ) 50 MG [...] area in groin) hydrALAZINE 0 Yes 50mg Q.[id number] Take 50 mg [facility] (APRESOLINE 7-19 [id number] [address] mouth 3 st ) 50 MG [...] area in groin) hydrALAZINE 0 Yes 50mg Q.[id number] Take 50 mg [facility] (APRESOLINE 7-19 [id number] [address] mouth 3 [address] ) 50 MG [...] (affected area in groin) hydrALAZINE Yes 50mg Q.[id number] Take 50 mg [facility] (APRESOLINE 7-19 [id number] [address] mouth 3 st ) 50 MG [...] area in groin) hydrALAZINE 0 Yes 50mg Q.[id number] Take 50 mg [facility] (APRESOLINE 7-19 [id number] [address] mouth 3 st ) 50 MG [...] area in groin) hydrALAZINE 2020-0 Yes 50mg Q.35408913 Take 50 mg [facility] (APRESOLINE 7-19 [id number] [address] mouth 3 [facility] ) 50 MG [...] (affected area in groin) hydrALAZINE Yes 50mg Q.77129720 Take 50 mg [facility] (APRESOLINE 7-19 [id number] [address] mouth 3 st ) 50 MG [...] area in groin) hydrALAZINE 0 Yes 50mg Q.92833100 Take 50 mg [facility] (APRESOLINE -19 [id number] by mouth 3 st ) 50 MG [...] area in groin) hydrALAZINE 0 Yes 50mg Q.88595040 Take 50 mg [facility] (APRESOLINE 7-19 [id number] [address] mouth 3 st ) 50 MG [...] area in groin) hydrALAZINE 0 Yes 50mg Q.86245595 Take 50 mg [facility] (APRESOLINE 7-19 [id number] [address] mouth 3 st ) 50 MG [...] (affected area in groin) hydrALAZINE Yes 50mg Q.[id number] Take 50 mg [facility] (APRESOLINE -19 [id number] by mouth 3 [facility] ) 50 MG [...] area in groin) hydrALAZINE 2020-0 Yes 50mg Q.[id number] Take 50 mg [facility] (APRESOLINE 7-19 [id number] [address] mouth 3 st ) 50 MG [...] area in groin) hydrALAZINE 0 Yes 50mg Q.50695230 Take 50 mg [facility] (APRESOLINE 7-19 [id number] [address] mouth 3 st ) 50 MG [...] (affected area in groin) hydrALAZINE Yes 50mg Q.[id number] Take 50 mg [facility] (APRESOLINE 7-19 [id number] [address] mouth 3 st ) 50 MG [...] area in groin) hydrALAZINE 0 Yes 50mg Q.83006406 Take 50 mg [facility] (APRESOLINE -19 [id number] [address] mouth 3 st ) 50 MG [...] area in groin) hydrALAZINE 0 Yes 50mg Q.89238001 Take 50 mg [facility] (APRESOLINE 7-19 [id number] by mouth 3 st ) 50 MG [...] area in groin) hydrALAZINE 0 Yes 50mg Q.83041150 Take 50 mg [facility] (APRESOLINE 7-19 [id number] [address] mouth 3 st ) 50 MG [...] area in groin) hydrALAZINE 0 Yes 50mg Q.97514157 Take 50 mg [facility] (APRESOLINE 12-08 [id number] by mouth 3 st ) 50 MG [...] area in groin) hydrALAZINE 2020-0 Yes 50mg Q.10706647 Take 50 mg [facility] (APRESOLINE 7-19 [id number] [facility] mouth 3 st ) 50 MG [...] area in groin) hydrALAZINE 0 Yes 50mg Q.36359879 Take 50 mg [facility] (APRESOLINE 7-19 [id number] [address] mouth 3 [facility] ) 50 MG [...] (affected area in groin) hydrALAZINE Yes 50mg Q.32881154 Take 50 mg [facility] (APRESOLINE 7- [id number] by mouth 3 st ) 50 MG [...] area in groin) hydrALAZINE 2020-0 Yes 50mg Q.55562992 Take 50 mg [facility] (APRESOLINE 7-19 [id number] by mouth 3 st ) 50 MG [...] area in groin) hydrALAZINE 2020-0 Yes 50mg Q.80783019 Take 50 mg [facility] (APRESOLINE 7-19 [id number] by mouth 3 [facility] ) 50 MG [...] area in groin) hydrALAZINE 0 Yes 50mg Q.10603383 Take 50 mg [facility] (APRESOLINE -19 [id number] [address] mouth 3 [address] ) 50 MG [...] area in groin) hydrALAZINE 0 Yes 50mg Q.07494883 Take 50 mg [facility] (APRESOLINE -19 [id number] by mouth 3 [facility] ) 50 MG [...] area in groin) hydrALAZINE 0 Yes 50mg Q.[id number] Take 50 mg [facility] (APRESOLINE 7-19 [id number] [address] mouth 3 [address] ) 50 MG [...] area in groin) hydrALAZINE 0 Yes 50mg Q.92416378 Take 50 mg [facility] (APRESOLINE 7-19 [id number] mouth 3 [address] ) 50 MG [...] (affected area in groin) hydrALAZINE Yes 50mg Q.[id number] Take 50 mg [facility] (APRESOLINE 7-19 [id number] mouth 3 [address] ) 50 MG [...] area in groin) hydrALAZINE 0 Yes 50mg Q.99139469 Take 50 mg [facility] (APRESOLINE 7-19 [id number] [address] mouth 3 [address] ) 50 MG [...] area in groin) hydrALAZINE 0 Yes 50mg Q.89179626 Take 50 mg [facility] (APRESOLINE 7-19 [id number] mouth 3 [address] ) 50 MG [...] (affected area in groin) hydrALAZINE Yes 50mg Q.[id number] Take 50 mg [facility] (APRESOLINE 7-19 [id number] mouth 3 [address] ) 50 MG [...] area in groin) hydrALAZINE 0 Yes 50mg Q.43638501 Take 50 mg [facility] (APRESOLINE 7-19 [id number] [address] mouth 3 [address] ) 50 MG [...] area in groin) hydrALAZINE 0 Yes 50mg Q.[id number] Take 50 mg [facility] (APRESOLINE 7-19 [id number] mouth 3 [address] ) 50 MG [...] (affected area in groin) hydrALAZINE Yes 50mg Q.[id number] Take 50 mg [facility] (APRESOLINE 7-19 [id number] by mouth 3 [address] ) 50 MG [...] area in groin) hydrALAZINE 0 Yes 50mg Q.97799115 Take 50 mg [facility] (APRESOLINE 7-19 [id number] mouth 3 [address] ) 50 MG [...] (affected area in groin) hydrALAZINE Yes 50mg Q.[id number] Take 50 mg [facility] (APRESOLINE 7-19 [id number] [address] mouth 3 [address] ) 50 MG [...] (affected area in groin) hydrALAZINE Yes 50mg Q.[id number] Take 50 mg [facility] (APRESOLINE 7-19 [id number] mouth 3 [address] ) 50 MG [...] (affected area in groin) hydrALAZINE Yes 50mg Q.28569970 Take 50 mg [facility] (APRESOLINE 7-19 [id number] [address] mouth 3 [facility] ) 50 MG [...] area in groin) hydrALAZINE 0 Yes 50mg Q.86192189 Take 50 mg [facility] (APRESOLINE 7-[id number] mouth 3 [address] ) 50 MG [...] (affected area in groin) hydrALAZINE Yes 50mg Q.56199784 Take 50 mg [facility] (APRESOLINE 7-[id number] mouth 3 [address] ) 50 MG [...] (affected area in groin) hydrALAZINE Yes 50mg Q.88276131 Take 50 mg [facility] (APRESOLINE 7-19 [id number] by mouth 3 st ) 50 MG [...] area in groin) hydrALAZINE 0 Yes 50mg Q.65995351 Take 50 mg [facility] (APRESOLINE 7-[id number] mouth 3 [address] ) 50 MG [...] area in groin) hydrALAZINE 0 Yes 50mg Q.[id number] Take 50 mg [facility] (APRESOLINE 7-19 [id number] by mouth 3 [facility] ) 50 MG [...] (affected area in groin) hydrALAZINE Yes 50mg Q.[id number] Take 50 mg [facility] (APRESOLINE 7-[id number] mouth 3 [address] ) 50 MG [...] area in groin) hydrALAZINE 0 Yes 50mg Q.90375963 Take 50 mg [facility] (APRESOLINE 7-19 [id number] mouth 3 [address] ) 50 MG [...] area in groin) hydrALAZINE 0 Yes 50mg Q.55637550 Take 50 mg [facility] (APRESOLINE 7-[id number] mouth 3 [address] ) 50 MG [...] (affected area in groin) hydrALAZINE Yes 50mg Q.95355948 Take 50 mg [facility] (APRESOLINE 7-[id number] mouth 3 [address] ) 50 MG [...] (affected area in groin) hydrALAZINE Yes 50mg Q.[id number] Take 50 mg [facility] (APRESOLINE 7-[id number] mouth 3 [address] ) 50 MG [...] area in groin) hydrALAZINE 0 Yes 50mg Q.[id number] Take 50 mg [facility] (APRESOLINE 7-19 [id number] mouth 3 st ) 50 MG [...] (affected area in groin) hydrALAZINE Yes 50mg Q.67257875 Take 50 mg [facility] (APRESOLINE 7-19 [id number] mouth 3 [address] ) 50 MG [...] (affected area in groin) hydrALAZINE Yes 50mg Q.69411715 Take 50 mg [facility] (APRESOLINE 7-[id number] mouth 3 [address] ) 50 MG [...] area in groin) hydrALAZINE 0 Yes 50mg Q.[id number] Take 50 mg [facility] (APRESOLINE 7-[id number] mouth 3 [address] ) 50 MG [...] (affected area in groin) hydrALAZINE Yes 50mg Q.60921229 Take 50 mg [facility] (APRESOLINE 7-19 [id number] mouth 3 st ) 50 MG [...] (affected area in groin) hydrALAZINE Yes 50mg Q.[id number] Take 50 mg [facility] (APRESOLINE 7-[id number] mouth 3 [address] ) 50 MG [...] area in groin) hydrALAZINE 0 Yes 50mg Q.97550470 Take 50 mg [facility] (APRESOLINE 7-19 [id number] by mouth 3 st ) 50 MG [...] area in groin) hydrALAZINE 0 Yes 50mg Q.24600901 Take 50 mg [facility] (APRESOLINE 7-[id number] mouth 3 [address] ) 50 MG [...] (affected area in groin) hydrALAZINE Yes 50mg Q.[id number] Take 50 mg [facility] (APRESOLINE 7-[id number] mouth 3 [address] ) 50 MG [...] area in groin) hydrALAZINE 0 Yes 50mg Q.[id number] Take 50 mg [facility] (APRESOLINE 7-19 [id number] by mouth 3 [address] ) 50 MG [...] area in groin) hydrALAZINE 0 Yes 50mg Q.[id number] Take 50 mg [facility] (APRESOLINE 7-19 [id number] mouth 3 [address] ) 50 MG [...] (affected area in groin) hydrALAZINE Yes 50mg Q.[id number] Take 50 mg [facility] (APRESOLINE 7-19 [id number] mouth 3 [address] ) 50 MG [...] [facility] tablet 25 l nystatin-tr 2021-0 Yes [id number] Apply to [facility] iamcinolone 7-06 area(s) 3 ity of cream 00:00: (three) [place] 00 times Medical daily. Branch nystatin-tr 2021-0 Yes [id number] Apply to [facility] iamcinolone 7-06 area(s) 3 ity of cream 00:00: (three) [place] 00 times Medical daily. Branch nystatin-tr 2021-0 Yes [id number] Apply to [facility] iamcinolone 7-06 area(s) 3 ity of cream 00:00: (three) [place] 00 times Medical daily. Branch nystatin-tr 2021-0 Yes [id number] Apply to [facility] iamcinolone 7-06 area(s) 3 ity of cream 00:00: (three) [place] 00 times Medical daily. Branch nystatin-tr 2021-0 Yes [id number] Apply to [facility] iamcinolone 7-06 area(s) 3 ity of cream 00:00: (three) [place] 00 times Medical daily. Branch nystatin-tr 2021-0 Yes [id number] Apply to [facility] iamcinolone 7-06 area(s) 3 ity of cream 00:00: (three) [place] 00 times Medical daily. Branch nystatin-tr 2021-0 Yes [id number] Apply to [facility] iamcinolone 7-06 area(s) 3 ity of cream 00:00: (three) [place] 00 times Medical daily. Branch nystatin-tr 2021-0 Yes [id number] Apply to [facility] iamcinolone 7-06 area(s) 3 ity of cream 00:00: (three) [place] 00 times Medical daily. Branch nystatin-tr 2021-0 Yes [id number] Apply to [facility] iamcinolone 7-06 area(s) 3 ity of cream 00:00: (three) [place] 00 times Medical daily. Branch nystatin-tr 2021-0 Yes [id number] Apply to [facility] iamcinolone 7-06 area(s) 3 ity of cream 00:00: (three) [place] 00 times Medical daily. Branch nystatin-tr 2021-0 Yes [id number] Apply to [facility] iamcinolone 7-06 area(s) 3 ity of cream 00:00: (three) [place] 00 times Medical daily. Branch nystatin-tr 2021-0 Yes [id number] Apply to [facility] iamcinolone 7-06 area(s) 3 ity of cream 00:00: (three) [place] 00 times Medical daily. Branch nystatin-tr 2021-0 Yes [id number] Apply to [facility] iamcinolone 7-06 area(s) 3 ity of cream 00:00: (three) [place] 00 times Medical daily. Branch nystatin-tr 2021-0 Yes [id number] Apply to [facility] iamcinolone 7-06 area(s) 3 ity of cream 00:00: (three) [place] 00 times Medical daily. Branch nystatin-tr 2021-0 Yes [id number] Apply to [facility] iamcinolone 7-06 area(s) 3 ity of cream 00:00: (three) [place] 00 times Medical daily. Branch nystatin-tr 2021-0 Yes [id number] Apply to [facility] iamcinolone 7-06 area(s) 3 ity of cream 00:00: (three) [place] 00 times Medical daily. Branch nystatin-tr 2021-0 Yes [id number] Apply to [facility] iamcinolone 7-06 area(s) 3 ity of cream 00:00: (three) [place] 00 times Medical daily. Branch nystatin-tr 2021-0 Yes [id number] Apply to [facility] iamcinolone 7-06 area(s) 3 ity of cream 00:00: (three) [place] 00 times Medical daily. Branch nystatin-tr 2021-0 Yes [id number] Apply to [facility] iamcinolone 7-06 area(s) 3 ity of cream 00:00: (three) [place] 00 times Medical daily. Branch nystatin-tr 2020-0 Yes [id number] Apply to [facility] iainolone 7-06 area(s) 3 ity of cream 00:00: (three) [place] 00 times Medical daily. Branch nystatin-tr 2020-0 Yes [id number] Apply to [facility] iamcinolone 7-06 area(s) 3 ity of cream 00:00: (three) [place] 00 times Medical daily. Branch nystatin-tr 2020-0 Yes [id number] Apply to [facility] iainolone 7-06 area(s) 3 ity of cream 00:00: (three) [place] 00 times Medical daily. Branch nystatin-tr 2020-0 Yes [id number] Apply to [facility] iainolone 7-06 area(s) 3 ity of cream 00:00: (three) [place] 00 times Medical daily. Branch budesonide- 2020- No 1{puff} QD Inhale 1 [facility] formoteroL 6-25 06-[address] (SYMBICORT) 14:37: 00:00 morning. H ospita 160-4.5 02 :00 l mcg/actuati on inhaler hydrALAZINE 0 Yes [id number] 50mg Q.[id number] Take 1 [facility] (Apresoline 6-11 [id number] tablet (50 Health ) 50 MG 00:00: 3D mg total) tablet 00 by mouth 3 (three) times a day. hydrALAZINE Yes [id number] 50mg Q.[id number] Take 1 [facility] (Apresoline 6-11 [id number] tablet (50 Health ) 50 MG 00:00: [...] sertraline Yes 200mg 200 mg. [facility] (Zoloft) 30 [...] % 00:00: ointment 00 nystatin 2020- No [id number] Q.25D Take 5 mL [facility] (MYCOSTATIN 10-06 (500,000 st ) 100,000 00:00: 04:59 Units [facility] a unit/mL 00 :00 total) by l suspension mouth 4 (four) times a day for 14 days. Swish in mouth sucralfate 2020- No 1g Q.25D Take 10 mL [facility] (Carafate) 10-06 05- ([address] g st 100 mg/mL 00:00: 04:59 [...] 4-10 (Same as: l 14:00: Zoloft) [place] Sertraline No Notes: Mem[facility] ia 4-10 (Same as: l 14:00: Zoloft) [place] pantoprazol No Notes: [place] lisa e 4-10 Tablet l 14:00: should not [place] 00 be chewed or crushed. (Same as: Protonix) Amiodarone No Notes: [facility] 4-10 (Same as: l 14:00: Cordarone) [place] 00 Amlodipine No Notes: [facility] 4-10 (Same as: l 14:00: Norvasc) [place] 00 emtricitabi No Notes: [place] lisa ne 200 MG / 4-10 (Same as: l tenofovir 14:00: Descovy) Herm ariel alafenamide 00 Non-formul 25 MG Oral nancy Tablet [Descovy] Sertraline No Notes: [facility] ia 4-10 (Same as: l 14:00: Zoloft) [place] 00 pantoprazol No Notes: [place] lisa e 4-10 Tablet l 14:00: should not [place] 00 be chewed or crushed. (Same as: Protonix) Amiodarone No Notes: Mem[facility] ia 4-10 (Same as: l 14:00: Cordarone) [place] Amlodipine No Notes: [facility] ia 4-10 (Same as: l 14:00: Norvasc) [place] emtricitabi No Notes: Caesar lisa ne 200 MG / 4-10 (Same as: l tenofovir 14:00: Descovy) Herm ariel alafenamide 00 Non-formul 25 MG Oral nancy Tablet [Descovy] Sertraline No Notes: [facility] ia 4-10 (Same as: l 14:00: Zoloft) [place] pantoprazol No Notes: [place] lisa e 4-10 Tablet l 14:00: should not [place] 00 be chewed or crushed. (Same as: Protonix) Amiodarone No Notes: [facility] ia 4-10 (Same as: l 14:00: Cordarone) [place] Amlodipine No Notes: [facility] ia 4-10 (Same [...] 4-10 (Same as: l 14:00: Cordarone) [place] Amlodipine No Notes: Memor ia 4-10 (Same as: l 14:00: Norvasc) [place] emtricitabi No Notes: [place] lisa ne 200 MG / 4-10 (Same as: l tenofovir 14:00: Descovy) Herm ariel alafenamide 00 Non-formul 25 MG Oral nancy Tablet [Descovy] Sertraline No Notes: [facility] ia 4-10 (Same as: l 14:00: Zoloft) [place] 00 pantoprazol No Notes: [place] lisa e 4-10 Tablet l 14:00: should not [place] 00 be chewed or crushed. (Same as: Protonix) Amiodarone No Notes: [facility] ia 4-10 (Same as: l 14:00: Cordarone) [place] Amlodipine No Notes: [facility] ia 4-10 (Same as: l 14:00: Norvasc) [place] emtricitabi No Notes: [place] lisa ne 200 MG / 4-10 (Same as: l tenofovir 14:00: Descovy) Herm ariel alafenamide 00 Non-formul 25 MG Oral nancy Tablet [Descovy] Sertraline No Notes: [facility] ia 4-10 (Same as: l 14:00: Zoloft) [place] 00 pantoprazol No Notes: [place] lisa e 4-10 Tablet l 14:00: should not [place] 00 be chewed or crushed. (Same as: [...] emoria 4-10 interfere l 02:00: w/enteral [place] 00 feeds - Take 1 hr before [...] 4-10 (Same as: l 02:00: BD [place] 00 Posiflush) Eliquis No Notes: [facility] 4-10 Same as: l 02:00: Eliquis [place] Hydralazine No Notes: Caesar lisa Hydrochlori 4-10 (Same as: l de 50 MG 02:00: Apresoline Her mitchell Oral Tablet 00 ) May interfere w/enteral feedings Take With Food Sucralfate No Notes: May M emoria 4-10 interfere l 02:00: w/enteral [place] 00 feeds - Take 1 hr before or 2 hr after antacids, dairy pdt, meals & minerals - On empty stomach. For patients unable to swallow tablet, dissolve in 10mL - 30mL of water or juice and stir before giving. (Same As: Carafate) Saline No Notes: [facility] Flush 0.9% 4-10 (Same as: l 02:00: BD [place] 00 Posiflush) Eliquis No Notes: Memoria 4-10 [...] emoria 4-10 interfere l 02:00: w/enteral [place] 00 feeds - Take 1 hr before [...] exceed l #3 00:12: 4gm/day of [place] acetaminop hen. (Same as: Tylenol with Codeine [...] exceed l #3 00:12: 4gm/day of [place] acetaminop hen. (Same as: Tylenol with Codeine # 3) acetaminoph No Notes: Do M emoria en-codeine 4-10 not exceed l #3 00:12: 4gm/day of [place] acetaminop hen. (Same as: Tylenol with Codeine # 3) Buspirone No Notes: Memori a 4-09 (Same As: l 22:00: BuSpar) Lisinopril No 40 mg, 1 Mem oria 4-09 tab, l 22:00: Route: PO, [place] Drug form: TAB, BID, Dosing Weight 97.273, kg, Start date: 08/29/20 17:00:00 CDT, Duration: 30 day, Stop date: 09/28/20 9:00:00 CDT metoprolol 1-0 No 100 mg, 1 Me moria tartrate 4-09 tab, l 22:00: Route: PO, [place] 00 Drug form: TAB, BID, Dosing Weight [...] oria - tab, l 22:00: Route: PO, [place] 00 Drug form: TAB, BID, Dosing Weight [...] tartrate -09 tab, l 22:00: Route: PO, [place] 00 Drug form: TAB, BID, Dosing Weight [...] 2021-0 No 40 mg, 1 Mem oria -09 tab, l 22:00: Route: PO, [place] 00 Drug form: TAB, BID, Dosing Weight [...] 4-09 tab, l 22:00: Route: PO, [place] Drug form: TAB, BID, Dosing Weight 97.273, kg, Start date: 08/29/20 17:00:00 CDT, Duration: 30 day, Stop date: 09/28/20 9:00:00 CDT metoprolol 2020-0 No 100 mg, 1 Me moria tartrate 4-09 tab, l 22:00: Route: PO, [place] 00 Drug form: TAB, BID, Dosing Weight [...] 4-09 tab, l 22:00: Route: PO, [place] 00 Drug form: TAB, BID, Dosing Weight [...] 4-09 tab, l 22:00: Route: PO, [place] 00 Drug form: TAB, BID, Dosing Weight [...] Memoria 4-09 (Same l 17:07: as:MORPhin [place] 00 e Sulfate) Morphine No Notes: [facility]oria 4-09 (Same l 17:07: as:MORPhin [place] 00 e Sulfate) Morphine No Notes: [facility] 4-09 (Same l 17:07: as:MORPhin [place] 00 e Sulfate) Morphine No Notes: [facility] 4-09 (Same l 17:07: as:MORPhin [place] 00 e Sulfate) Morphine No Notes: [facility] 4-09 (Same l 17:07: as:MORPhin [place] 00 e Sulfate) buPROPion 2020-0 No 150 [...] 30 tab, 0 coated Refill(s), tablet Pharmacy: [facility], 162.56, cm, 08/29/20 5:30:00 CDT, Height, 97.273, kg, 08/29/20 5:30:00 CDT, Weight pantoprazol 2020-0 Yes 40 mg = 1 M emoria e 40 mg 4-09 tab, PO, l oral 15:27: Daily, # [place] enteric 00 30 tab, 0 coated Refill(s), tablet Pharmacy: [facility], 162.56, cm, 08/29/20 5:30:00 CDT, Height, 97.273, kg, 08/29/20 5:30:00 CDT, Weight pantoprazol 2021-0 Yes 40 mg = 1 M emoria e 40 mg 4-09 tab, PO, l oral 15:27: Daily, # [place] enteric 00 30 tab, 0 coated Refill(s), tablet Pharmacy: [facility], 162.56, cm, 08/29/20 5:30:00 CDT, Height, 97.273, kg, 08/29/20 5:30:00 CDT, Weight pantoprazol 2021-0 Yes 40 mg = 1 M emoria e 40 mg 4-09 tab, PO, l oral 15:27: Daily, # [place] enteric 00 30 tab, 0 coated Refill(s), tablet Pharmacy: [facility], 162.56, cm, 08/29/20 5:30:00 CDT, Height, 97.273, kg, 08/29/20 5:30:00 CDT, Weight pantoprazol 2021-0 Yes 40 mg = 1 M emoria e 40 mg 4-09 tab, PO, l oral 15:27: Daily, # [place] enteric 00 30 tab, 0 coated Refill(s), tablet Pharmacy: [facility], 162.56, cm, 08/29/20 5:30:00 CDT, Height, 97.273, kg, 08/29/20 5:30:00 CDT, Weight pantoprazol 2021-0 Yes 40 mg = 1 M emoria e 40 mg 4-09 tab, PO, l oral 15:27: Daily, # [place] enteric 00 30 tab, 0 coated Refill(s), tablet Pharmacy: [facility], 162.56, cm, 08/29/20 5:30:00 CDT, Height, 97.273, kg, 08/29/20 5:30:00 CDT, Weight pantoprazol 2021-0 Yes 40 mg = 1 M emoria e 40 mg 4-09 tab, PO, l oral 15:27: Daily, # [place] enteric 00 30 tab, 0 coated Refill(s), tablet Pharmacy: [facility], 162.56, cm, 08/29/20 [...] Skylar nn 00 tab, 0 Refill(s), Pharmacy: [facility], 162.56, cm, 08/29/20 [...] Skylar nn 00 tab, 0 Refill(s), Pharmacy: [facility], 162.56, cm, 08/29/20 [...] Skylar nn 00 tab, 0 Refill(s), Pharmacy: [facility], 162.56, cm, 08/29/20 [...] Skylar nn 00 tab, 0 Refill(s), Pharmacy: [facility], 162.56, cm, 08/29/20 [...] Skylar nn 00 tab, 0 Refill(s), Pharmacy: [place] [id number], 162.56, cm, 08/29/20 5:30:00 CDT, Height, 97.273, [...] Skylar nn 00 tab, 0 Refill(s), Pharmacy: [facility], 162.56, cm, 08/29/20 [...] Skylar nn 00 tab, 0 Refill(s), Pharmacy: [facility], 162.56, cm, 08/29/20 5:30:00 CDT, Height, 97.273, kg, 08/29/20 5:30:00 CDT, Weight Saline No Notes: Memoria Flush 0.9% 4-09 (Same as: l 15:25: BD [place] 00 Posiflush) Lorazepam No Notes: Memori a 4-09 (Same as: l 15:25: Ativan) Marty Saline No Notes: Memoria Flush 0.9% 4-09 (Same as: l 15:25: BD [place] 00 Posiflush) Lorazepam No Notes: Memori a 4-09 (Same as: l 15:25: Ativan) [place] 00 Saline No Notes: Memoria Flush 0.9% [...] 4-09 (Same as: l 15:25: BD [place] 00 Posiflush) Lorazepam No Notes: Memori a 4-09 (Same as: l 15:25: Ativan) Marty 00 Saline No Notes: Memoria Flush 0.9% 4-09 (Same as: l 15:25: BD [place] 00 Posiflush) Lorazepam No Notes: Memori a 4-09 (Same as: l 15:25: Ativan) [place] 00 Saline No Notes: Memoria Flush 0.9% [...] Stop date: 08/29/20 11:00:00 CDT Isuprel HCl 2020- No Route: IV, Memoria (ANES) 0.2 08-29 Drug form: l mg + 15:00: INJ, [place] 00 Dosing Weight 97.3, kg, Start date: [...] 08-29 Drug form: l 14:18: INJ, ONCE, [place] 00 Stop date: 08/29/20 9:18:00 CDT heparin 2020-0 No Route: IV, Caesar lisa (ANES) 08-29 Drug form: l 14:18: INJ, ONCE, [place] 00 Stop date: 08/29/20 9:18:00 CDT heparin 2020-0 No Route: IV, Caesar lisa (ANES) 08-29 Drug form: l 14:18: INJ, ONCE, [place] 00 Stop date: 08/29/20 9:18:00 CDT Labetalol 2020-0 No 10 mg, Memori a 08-29 Route: l 14:01: IVP, [place] 00 Q5Min, Dosing Weight 97.273, kg, PRN Elevated BP, Start date: 08/29/20 9:01:00 CDT, Duration: 5 doses or times, Stop date: Limited # of times Acetaminoph 2020-0 No 1,000 mg, M emoria en 08-29 Route: PO, l 14:01: Drug form: [place] 00 TAB, ONCE, Dosing Weight 97.273, kg, [...] 08-29 Route: l 14:01: IVP, PRN, [place] 00 Dosing Weight 97.273, kg, PRN Benzodiaze pine Reversal, Initial dose, Start date: 08/29/20 9:01:00 CDT, Duration: 30 day, Stop date: 09/28/20 9:00:00 CDT Naloxone 1-0 No 0.4 mg, Memori a 08-29 Route: l 14:01: IVP, [place] 00 Q2MIN, Dosing Weight 97.273, kg, PRN Narcotic Reversal, Start date: 08/29/20 9:01:00 CDT, Duration: 8 doses or times, Stop date: Limited # of times Ondansetron 1-0 No 4 mg, Memor ia 08-29 Route: l 14:01: IVP, ONCE, [place] 00 Dosing Weight 97.273, kg, PRN Nausea [...] Route: PO, l 14:01: Drug form: [place] 00 TAB, ONCE, Dosing Weight 97.273, kg, [...] 08-29 Route: l 14:01: IVP, PRN, [place] 00 Dosing Weight 97.273, kg, PRN Benzodiaze pine Reversal, Initial dose, Start date: 08/29/20 9:01:00 CDT, Duration: 30 day, Stop date: 09/28/20 9:00:00 CDT Naloxone 1-0 No 0.4 mg, Memori a 08-29 Route: l 14:01: IVP, [place] 00 Q2MIN, Dosing Weight 97.273, kg, PRN Narcotic Reversal, Start date: 08/29/20 9:01:00 CDT, Duration: 8 doses or times, Stop date: Limited # of times Ondansetron 1-0 No 4 mg, Memor ia 08-29 Route: l 14:01: IVP, ONCE, [place] 00 Dosing Weight 97.273, kg, PRN Nausea [...] Route: l 14:01: IVP, [place] 00 Q2MIN, Dosing Weight 97.273, kg, PRN Narcotic Reversal, Start date: 08/29/20 9:01:00 CDT, Duration: 8 doses or times, Stop date: Limited # of times Ondansetron 1-0 No 4 mg, Memor ia 08-29 Route: l 14:01: IVP, ONCE, [place] 00 Dosing Weight 97.273, kg, PRN Nausea [...] ne 08-29 Route: l 14:01: IVP, [place] [...] ne 08-29 Route: l 14:01: IVP, [place] 00 Q5Min, Dosing Weight 97.273, kg, PRN Pain Score 7-10, Start date: 08/29/20 9:01:00 CDT, Duration: 4 doses or times, Stop date: Limited # of times Flumazenil 1-0 No 0.2 mg, Caesar lisa 08-29 Route: l 14:01: IVP, PRN, [place] 00 Dosing Weight 97.273, kg, PRN Benzodiaze [...] lisa 4 Route: l 14:01: IVP, PRN, [place] 00 [...] ia 4- Route: l 14:01: IVP, ONCE, [place] 00 Dosing Weight 97.273, kg, PRN Nausea & Vomiting, Start date: 08/29/20 9:01:00 CDT Labetalol 2021-0 No 10 mg, Memori a 4- Route: l 14:01: IVP, [place] 00 [...] ne 08-29 Route: l 14:01: IVP, [place] [...] 08-29 Route: l 14:01: IVP, ONCE, [place] 00 Dosing Weight 97.273, kg, PRN Nausea [...] Route: PO, l 14:01: Drug form: [place] 00 TAB, ONCE, Dosing Weight 97.273, kg, [...] form: l 10 13:15: INJ, Start [place] microgram date: 08/29/20 8:15:00 CDT, Stop date: 08/29/20 9:15:00 CDT norepinephr 0 No Route: IV, Memoria ine (ANES) 08-29 Drug form: l 10 13:15: INJ, Start [place] microgram date: 08/29/20 8:15:00 CDT, Stop date: 08/29/20 9:15:00 CDT norepinephr No Route: IV, Memoria ine (ANES) 08-29 Drug form: l 10 13:15: INJ, Start [place] microgram 00 date: 08/29/20 8:15:00 CDT, Stop date: 08/29/20 9:15:00 CDT norepinephr 2020-0 No Route: IV, Memoria ine (ANES) 08-29 Drug form: l 10 13:15: INJ, Start [place] microgram date: 08/29/20 8:15:00 CDT, Stop date: [...] form: l 10 13:15: INJ, Start [place] microgram date: 08/29/20 8:15:00 CDT, Stop date: [...] Total l 0.9% IV 12:30: Volume: [place] (ANES) 1000 00 1,000, mL Start date: 08/29/20 7:30:00 CDT, Stop date: 08/29/20 8:30:00 CDT Sodium 2021-0 No Route: IV, Memor ia Chloride 4-09 Total l 0.9% IV 12:30: Volume: [place] (ANES) 1000 00 1,000, mL Start date: [...] PO, l tablet 11:38: Daily, # [place] 00 90 tab, 3 Refill(s) AMIODarone 2020-0 [...] PO, l tablet 11:38: Daily, # [place] 00 90 tab, 3 Refill(s) normal No [...] [place]-Ten[place] 1-21 200 mg-25 [facility] r AF 00:00: mg tablet (Descovy) [...] [facility] e Immunization Name Name SARS-COV-2 COVID-19 [...] YRS+, Branch BIVALENT 0.3ML, IM, (PFIZER [facility]) Influenza Virus 2022-03-05 Completed [facility] [place] [facility] 65+ SARS-COV-2 COVID-19 2022-03-05 Completed [facility] of DIMITRIS-SUCROSE 00:00:00 [place] [facility] VACCINE 12 YRS+, [facility] BIVALENT 0.3ML, IM, (PFIZER [facility]) Influenza Virus 2022-03-05 Completed [facility] Vaccine[facility]quad 00:[facility] [place] [facility] 65+ PFIZER COVID-19 2020-07-23 Completed [facility] VACCINATION 00:00:00 [facility] PFIZER COVID-19 2020-07-23 Completed [facility] VACCINATION 00:00:00 [facility] PFIZER COVID-19 2020-07-23 Completed [facility] VACCINATION 00:00:00 [facility] PFIZER COVID-19 2020-07-23 Completed [facility] VACCINATION 00:00:00 [facility] PFIZER COVID-19 2020-07-23 Completed [facility] VACCINATION 00:00:00 [facility] PFIZER COVID-19 2020-07-23 Completed [facility] VACCINATION 00:00:00 [facility] PFIZER COVID-19 2020-07-23 Completed [facility] VACCINATION 00:00:00 [facility] PFIZER COVID-19 2020-07-23 Completed [facility] VACCINATION 00:00:00 [facility] PFIZER COVID-19 2020-07-23 Completed [facility] VACCINATION 00:00:00 [facility] PFIZER COVID-19 2020-07-23 Completed [facility] VACCINATION 00:00:00 [facility] PFIZER COVID-19 2020-07-23 Completed [facility] VACCINATION 00:00:00 [facility] PFIZER COVID-19 2020-07-23 Completed [facility] VACCINATION 00:00:00 [facility] PFIZER COVID-19 2020-07-23 Completed [facility] VACCINATION 00:00:00 [facility] PFIZER COVID-19 2020-07-23 Completed [facility] VACCINATION 00:00:00 [facility] PFIZER COVID-19 2020-07-23 Completed [facility] VACCINATION 00:00:00 [facility] PFIZER COVID-19 2020-07-23 Completed [facility] VACCINATION 00:00:00 [facility] PFIZER COVID-19 2020-07-23 Completed [facility] VACCINATION 00:00:00 [facility] PFIZER COVID-19 2020-07-23 Completed [facility] VACCINATION 00:00:00 [facility] PFIZER COVID-19 2020-07-23 Completed [facility] VACCINATION 00:00:00 [facility] PFIZER COVID-19 2020-07-23 Completed [facility] VACCINATION 00:00:00 [facility] PEG COVID-19 2020-07-23 Completed [facility] VACCINATION 00:00:00 [facility] PEG COVID-19 2020-07-23 Completed [facility] VACCINATION 00:00:00 [facility] PFIZER COVID-19 2020-07-23 Completed [facility] VACCINATION 00:00:00 [facility] PFIZER COVID-19 2020-07-23 Completed [facility] VACCINATION 00:00:00 [facility] PFIZER COVID-19 2020-07-23 Completed [facility] VACCINATION 00:00:00 [facility] PEG COVID-19 2020-07-23 Completed [facility] VACCINATION 00:00:00 [facility] PEG COVID-19 2020-07-23 Completed [facility] VACCINATION 00:00:00 [facility] PEG COVID-19 2020-07-23 Completed [facility] VACCINATION 00:00:00 [facility] PEG COVID-19 2020-07-23 Completed [facility] VACCINATION 00:00:00 [facility] PEG COVID-19 2020-07-23 Completed [facility] VACCINATION 00:00:00 [facility] PEG COVID-19 2020-07-23 Completed [facility] VACCINATION 00:00:00 [facility] PEG COVID-19 2020-07-23 Completed [facility] VACCINATION 00:00:00 [facility] PEG COVID-19 2020-07-23 Completed [facility] VACCINATION 00:00:00 [facility] PFIZER COVID-19 2020-07-23 Completed [facility] VACCINATION 00:00:00 [facility] PFIZER COVID-19 2020-07-23 Completed [facility] VACCINATION 00:00:00 [facility] PFIZER COVID-19 2020-07-23 Completed [facility] VACCINATION 00:00:00 [facility] PFIZER COVID-19 2020-07-23 Completed [facility] VACCINATION 00:00:00 [facility] PFIZER COVID-19 2020-07-23 Completed [facility] VACCINATION 00:00:00 [facility] PFIZER COVID-19 2020-07-23 Completed [facility] VACCINATION 00:00:00 [facility] PFIZER COVID-19 2020-07-23 Completed [facility] VACCINATION 00:00:00 [facility] PFIZER COVID-19 2020-07-23 Completed [facility] VACCINATION 00:00:00 [facility] PFIZER COVID-19 2020-07-23 Completed [facility] VACCINATION 00:00:00 [facility] PFIZER COVID-19 2020-07-23 Completed [facility] VACCINATION 00:00:00 [facility] PFIZER COVID-19 2020-07-23 Completed [facility] VACCINATION 00:00:00 [facility] PFIZER COVID-19 2020-07-23 Completed [facility] VACCINATION 00:00:00 [facility] PFIZER COVID-19 2020-07-23 Completed [facility] VACCINATION 00:00:00 [facility] PFIZER COVID-19 2020-07-23 Completed [facility] VACCINATION 00:00:00 [facility] PFIZER COVID-19 2020-07-23 Completed [facility] VACCINATION 00:00:00 [facility] PEG COVID-19 2020-07-23 Completed [facility] VACCINATION 00:00:00 [facility] PEG COVID-19 2020-07-23 Completed [facility] VACCINATION 00:00:00 [facility] PFIZER COVID-19 2020-07-23 Completed [facility] VACCINATION 00:00:00 [facility] PFIZER COVID-19 2020-07-23 Completed [facility] VACCINATION 00:00:00 [facility] PFIZER COVID-19 2020-07-23 Completed [facility] VACCINATION 00:00:00 [facility] PFIZER COVID-19 2020-07-23 Completed [facility] VACCINATION 00:00:00 [facility] PFIZER COVID-19 2020-07-23 Completed [facility] VACCINATION 00:00:00 [facility] PFIZER COVID-19 2020-07-23 Completed [facility] VACCINATION 00:00:00 [facility] PFIZER COVID-19 2020-07-23 Completed [facility] VACCINATION 00:00:00 [facility] PFIZER COVID-19 2020-07-23 Completed [facility] VACCINATION 00:00:00 [facility] PFIZER COVID-19 2020-07-23 Completed [facility] VACCINATION 00:00:00 [facility] PFIZER COVID-19 2020-07-23 Completed [facility] VACCINATION 00:00:00 [facility] PFIZER COVID-19 2020-07-23 Completed [facility] VACCINATION 00:00:00 [facility] PFIZER COVID-19 2020-07-23 Completed [facility] VACCINATION 00:00:00 [facility] PFIZER COVID-19 2020-07-23 Completed [facility] 00:00:00 [facility] PFIZER COVID-19 2020-07-23 Completed [facility] 00:00:00 [facility] SARS-COV-2 COVID-19 2020-07-23 Completed [facility] PFIZER VACCINE 00:00:00 [facility] SARS-COV-2 COVID-19 2020-07-23 Completed [facility] of PFIZER VACCINE 00:00:[address] [facility] SARS-COV-2 COVID-19 2020-07-23 Completed [facility] of PFIZER VACCINE 00:00:[address] [facility] SARS-COV-2 COVID-19 2020-07-23 Completed [facility] of PFIZER VACCINE 00:00:[address] [facility] SARS-COV-2 COVID-19 2020-07-23 Completed [facility] of PFIZER VACCINE 00:00:[address] [facility] SARS-COV-2 COVID-19 2020-07-23 Completed [facility] of PFIZER VACCINE 00:00:[address] [facility] SARS-COV-2 COVID-19 2020-07-23 Completed [facility] of PFIZER VACCINE 00:00:[address] [facility] SARS-COV-2 COVID-19 2020-07-23 Completed [facility] of PFIZER VACCINE 00:00:[address] [facility] SARS-COV-2 COVID-19 2020-07-23 Completed [facility] PFIZER VACCINE 00:00:00 [facility] SARS-COV-2 COVID-19 2020-07-23 Completed [facility] of PFIZER VACCINE 00:00:[address] [facility] SARS-COV-2 COVID-19 2020-07-23 Completed [facility] of PFIZER VACCINE 00:00:[address] [facility] SARS-COV-2 COVID-19 2020-07-23 Completed [facility] of PFIZER VACCINE 00:00:[address] [facility] SARS-COV-2 COVID-19 2020-07-23 Completed [facility] of PFIZER VACCINE 00:00:00 [facility] SARS-COV-2 COVID-19 2020-07-23 Completed [facility] of PFIZER VACCINE 00:00:00 [facility] SARS-COV-2 COVID-19 2020-07-23 Completed [facility] of PFIZER VACCINE 00:00:00 [facility] SARS-COV-2 COVID-19 2020-07-23 Completed [facility] of PFIZER VACCINE 00:00:00 [facility] SARS-COV-2 COVID-19 2020-07-23 Completed [facility] of PFIZER VACCINE 00:00:00 [facility] SARS-COV-2 COVID-19 2020-07-23 Completed [facility] of PFIZER VACCINE 00:00:00 [facility] SARS-COV-2 COVID-19 2020-07-23 Completed [facility] of PFIZER VACCINE 00:00:00 [facility] PFIZER COVID-19 2020-07-23 Completed [facility] VACC[facility] 00:00:00 [facility] PFIZER COVID-19 2020-07-02 Completed [facility] VACCINATION 00:00:00 [facility] PFIZER COVID-19 2020-07-02 Completed [facility] VACCINATION 00:00:00 [facility] PFIZER COVID-19 2020-07-02 Completed [facility] VACCINATION 00:00:00 [facility] PFIZER COVID-19 2020-07-02 Completed [facility] VACCINATION 00:00:00 [facility] PFIZER COVID-19 2020-07-02 Completed [facility] VACCINATION 00:00:00 [facility] PFIZER COVID-19 2020-07-02 Completed [facility] VACCINATION 00:00:00 [facility] PFIZER COVID-19 2020-07-02 Completed [facility] VACCINATION 00:00:00 [facility] PFIZER COVID-19 2020-07-02 Completed [facility] VACCINATION 00:00:00 [facility] PFIZER COVID-19 2020-07-02 Completed [facility] VACCINATION 00:00:00 [facility] PFIZER COVID-19 2020-07-02 Completed [facility] VACCINATION 00:00:00 [facility] PFIZER COVID-19 2020-07-02 Completed [facility] VACCINATION 00:00:00 [facility] PFIZER COVID-19 2020-07-02 Completed [facility]ACC[facility] 00:00:00 [facility] PFIZER COVID-19 2020-07-02 Completed [facility] VACCINATION 00:00:00 [facility] PFIZER COVID-19 2020-07-02 Completed [facility] VACCINATION 00:00:00 [facility] PFIZER COVID-19 2020-07-02 Completed [facility] VACCINATION 00:00:00 [facility] PFIZER COVID-19 2020-07-02 Completed [facility] VACCINATION 00:00:00 [facility] PFIZER COVID-19 2020-07-02 Completed [facility] VACCINATION 00:00:00 [facility] PFIZER COVID-19 2020-07-02 Completed [facility] VACCINATION 00:00:00 [facility] PFIZER COVID-19 2020-07-02 Completed [facility] VACCINATION 00:00:00 [facility] PFIZER COVID-19 2020-07-02 Completed [facility] VACCINATION 00:00:00 [facility] PFIZER COVID-19 2020-07-02 Completed [facility] VACCINATION 00:00:00 [facility] PFIZER COVID-19 2020-07-02 Completed [facility] VACCINATION 00:00:00 [facility] PFIZER COVID-19 2020-07-02 Completed [facility] VACCINATION 00:00:00 [facility] PFIZER COVID-19 2020-07-02 Completed [facility] VACCINATION 00:00:00 [facility] PFIZER COVID-19 2020-07-02 Completed [facility] VACCINATION 00:00:00 [facility] PFIZER COVID-19 2020-07-02 Completed [facility] VACCINATION 00:00:00 [facility] PFIZER COVID-19 2020-07-02 Completed [facility] VACCINATION 00:00:00 [facility] PFIZER COVID-19 2020-07-02 Completed [facility] VACCINATION 00:00:00 [facility] PFIZER COVID-19 2020-07-02 Completed [facility] VACCINATION 00:00:00 [facility] PFIZER COVID-19 2020-07-02 Completed [facility] VACCINATION 00:00:00 [facility] PFIZER COVID-19 2020-07-02 Completed [facility] VACCINATION 00:00:00 [facility] PFIZER COVID-19 2020-07-02 Completed [facility] VACCINATION 00:00:00 [facility] PFIZER COVID-19 2020-07-02 Completed [facility] VACCINATION 00:00:00 [facility] PFIZER COVID-19 2020-07-02 Completed [facility] VACCINATION 00:00:00 [facility] PFIZER COVID-19 2020-07-02 Completed [facility] VACCINATION 00:00:00 [facility] PFIZER COVID-19 2020-07-02 Completed [facility] VACCINATION 00:00:00 [facility] PFIZER COVID-19 2020-07-02 Completed [facility] VACCINATION 00:00:00 [facility] PFIZER COVID-19 2020-07-02 Completed [facility] VACCINATION 00:00:00 [facility] PFIZER COVID-19 2020-07-02 Completed [facility] VACCINATION 00:00:00 [facility] PFIZER COVID-19 2020-07-02 Completed [facility] VACCINATION 00:00:00 [facility] PFIZER COVID-19 2020-07-02 Completed [facility] VACCINATION 00:00:00 [facility] PFIZER COVID-19 2020-07-02 Completed [facility] VACCINATION 00:00:00 [facility] PFIZER COVID-19 2020-07-02 Completed [facility] VACCINATION 00:00:00 [facility] PFIZER COVID-19 2020-07-02 Completed [facility] VACCINATION 00:00:00 [facility] PFIZER COVID-19 2020-07-02 Completed [facility] VACCINATION 00:00:00 [facility] PFIZER COVID-19 2020-07-02 Completed [facility] VACCINATION 00:00:00 [facility] PFIZER COVID-19 2020-07-02 Completed [facility] VACCINATION 00:00:00 [facility] PEG COVID-19 2020-07-02 Completed [facility] VACCINATION 00:00:00 [facility] PFIZER COVID-19 2020-07-02 Completed [facility] VACCINATION 00:00:00 [facility] PFIZER COVID-19 2020-07-02 Completed [facility] VACCINATION 00:00:00 [facility] PFIZER COVID-19 2020-07-02 Completed [facility] VACCINATION 00:00:00 [facility] PFIZER COVID-19 2020-07-02 Completed [facility] VACCINATION 00:00:00 [facility] PFIZER COVID-19 2020-07-02 Completed [facility] VACCINATION 00:00:00 [facility] PFIZER COVID-19 2020-07-02 Completed [facility] VACCINATION 00:00:00 [facility] PFIZER COVID-19 2020-07-02 Completed [facility] VACCINATION 00:00:00 [facility] PFIZER COVID-19 2020-07-02 Completed [facility] VACCINATION 00:00:00 [facility] PFIZER COVID-19 2020-07-02 Completed [facility] VACCINATION 00:00:00 [facility] PFIZER COVID-19 2020-07-02 Completed [facility] VACCINATION 00:00:00 [facility] PFIZER COVID-19 2020-07-02 Completed [facility] VACCINATION 00:00:00 [facility] PFIZER COVID-19 2020-07-02 Completed [facility] VACCINATION 00:00:00 [facility] PFIZER COVID-19 2020-07-02 Completed [facility] VACC[facility] 00:00:00 [facility] PFIZER COVID-19 2020-07-02 Completed [facility] VACC[facility] 00:00:00 [facility] PFIZER COVID-19 2020-07-02 Completed [facility] VACC[facility] 00:00:00 [facility] PFIZER COVID-19 2020-07-02 Completed [facility] VACCINATION 00:00:00 [facility] SARS-COV-2 COVID-19 2020-07-02 Completed [facility] PFIZER VACCINE 00:00:[address] [facility] SARS-COV-2 COVID-19 2020-07-02 Completed [facility] of PFIZER VACCINE 00:00:00 [facility] SARS-COV-2 COVID-19 2020-07-02 Completed [facility] of PFIZER VACCINE 00:00:[address] [facility] SARS-COV-2 COVID-19 2020-07-02 Completed [facility] of PFIZER VACCINE 00:00:00 [facility] SARS-COV-2 COVID-19 2020-07-02 Completed [facility] of PFIZER VACCINE 00:00:00 [facility] SARS-COV-2 COVID-19 2020-07-02 Completed [facility] of PFIZER VACCINE 00:00:00 [facility] SARS-COV-2 COVID-19 2020-07-02 Completed [facility] of PFIZER VACCINE 00:00:00 [facility] SARS-COV-2 COVID-19 2020-07-02 Completed [facility] of PFIZER VACCINE 00:00:00 [facility] SARS-COV-2 COVID-19 2020-07-02 Completed [facility] of PFIZER VACCINE 00:00:[address] [facility] SARS-COV-2 COVID-19 2020-07-02 Completed [facility] of PFIZER VACCINE 00:00:00 [facility] SARS-COV-2 COVID-19 2020-07-02 Completed [facility] of PFIZER VACCINE 00:00:00 [facility] SARS-COV-2 COVID-19 2020-07-02 Completed [facility] of PFIZER VACCINE 00:00:00 [facility] SARS-COV-2 COVID-19 2020-07-02 Completed [facility] of PFIZER VACCINE 00:00:00 [facility] SARS-COV-2 COVID-19 2020-07-02 Completed [facility] of PFIZER VACCINE 00:00:00 [facility] SARS-COV-2 COVID-19 2020-07-02 Completed [facility] of PFIZER VACCINE 00:00:00 [facility] SARS-COV-2 COVID-19 2020-07-02 Completed [facility] of PFIZER VACCINE 00:00:00 [facility] SARS-COV-2 COVID-19 2020-07-02 Completed [facility] of PFIZER VACCINE 00:00:00 [facility] SARS-COV-2 COVID-19 2020-07-02 Completed [facility] of PFIZER VACCINE 00:00:00 [facility] SARS-COV-2 COVID-19 2020-07-02 Completed [facility] of PFIZER VACCINE 00:00:00 [facility] PFIZER COVID-19 2020-07-02 Completed [facility] VACC[facility] 00:00:00 [facility] Influenza Virus 2017-03-08 Completed [facility] Vaccine 00:00:00 [facility] Influenza Virus 2017-03-08 Completed [facility] Vaccine 00:00:00 [facility] Influenza Virus 2017-03-08 Completed [facility] Vaccine 00:00:00 [facility] Influenza Virus 2017-03-08 Completed [facility] Vaccine 00:00:00 [facility] Influenza Virus 2017-03-08 Completed [facility] Vaccine 00:00:00 [facility] Influenza Virus 2017-03-08 Completed [facility] Vaccine 00:00:00 [facility] Influenza Virus 2017-03-08 Completed [facility] Vaccine 00:00:00 [facility] Influenza Virus 2017-03-08 Completed [facility] Vaccine 00:00:00 [facility] Influenza Virus 2017-03-08 Completed [facility] Vaccine 00:00:00 [facility] Influenza Virus 2017-03-08 Completed [facility] Vaccine 00:00:00 [facility] Influenza Virus 2017-03-08 Completed [facility] Vaccine 00:00:00 [facility] Influenza Virus 2017-03-08 Completed [facility] Vaccine 00:00:00 [facility] Influenza Virus 2017-03-08 Completed [facility] Vaccine 00:00:00 [facility] Influenza Virus 2017-03-08 Completed [facility] Vaccine 00:00:00 [facility] Influenza Virus 2017-03-08 Completed [facility] Vaccine 00:00:00 [facility] Influenza Virus 2017-03-08 Completed [facility] Vaccine 00:00:00 [facility] Influenza Virus 2017-03-08 Completed [facility] Vaccine 00:00:00 [facility] Influenza Virus 2017-03-08 Completed [facility] Vaccine 00:00:00 [facility] Influenza Virus 2017-03-08 Completed [facility] Vaccine 00:00:00 [facility] Influenza Virus 2017-03-08 Completed [facility] Vaccine 00:00:00 [facility] Influenza Virus 2017-03-08 Completed [facility] Vaccine 00:00:00 [facility] Influenza Virus 2017-03-08 Completed [facility] Vaccine 00:00:00 [facility] Influenza Virus 2017-03-08 Completed [facility] Vaccine 00:00:00 [facility] Influenza Virus 2014-01-30 Completed [facility] Vaccine (3+ yrs) 00:00:00 [facility] Pneumococcal 13 2014-01-30 Completed [facility] Conjugate, PCV13 00:00:00 [facility] (Pre[facility] 13) Branch Influenza Virus 2014-01-30 Completed [facility] Vaccine (3+ yrs) 00:00:00 [facility] Pneumococcal 13 2014-01-30 Completed [facility] of Conjugate, PCV13 00:00:00 [facility] (Prevnar 13) Branch Influenza Virus 2014-01-30 Completed [facility] Vaccine (3+ yrs) 00:00:00 [facility] Pneumococcal 13 2014-01-30 Completed [facility]it [facility] of Conjugate, PCV13 00:00:00 [facility] dical (Prevnar 13) Branch Influenza Virus 2014-01-30 Completed [facility] of Vaccine (3+ yrs) 00:00:00 [facility] Pneumococcal 13 2014-01-30 Completed [facility]it [facility] of Conjugate, PCV13 00:00:00 [facility] dical (Prevnar 13) Branch Influenza Virus 2014-01-30 Completed [facility] of Vaccine (3+ yrs) 00:00:00 [facility] Pneumococcal 13 2014-01-30 Completed [facility] of Conjugate, PCV13 00:00:00 [facility] (Prevnar 13) Branch Influenza Virus 2014-01-30 Completed [facility] Vaccine (3+ yrs) 00:00:00 [facility] Pneumococcal 13 2014-01-30 Completed [...] y of Vaccine (3+ yrs) 00:00:00 [facility] d[facility] Branch Pneumococcal 13 2014-01-30 Completed [facility]it [facility] of Conjugate, PCV13 00:00:00 [facility] (Prevnar 13) Branch Influenza Virus 2014-01-30 Completed [facility] of Vaccine (3+ yrs) 00:00:00 [facility] Branch Pneumococcal 13 2014-01-30 Completed [facility] of Conjugate, PCV13 00:00:00 [place] [facility] (Prevnar 13) [facility] Influenza Virus 2014-01-30 Completed [facility] of Vaccine (3+ yrs) 00:00:00 [facility] Branch Pneumococcal 13 2014-01-30 Completed [facility] of Conjugate, PCV13 00:00:00 [facility] (Prevnar 13) Branch Influenza Virus 2014-01-30 Completed [facility] of Vaccine (3+ yrs) 00:00:00 [facility] Branch Pneumococcal 13 2014-01-30 Completed [facility] of Conjugate, PCV13 00:00:00 [facility] (Prevnar 13) Branch Influenza Virus 2014-01-30 Completed [facility] of Vaccine (3+ yrs) 00:00:00 [facility] Branch Pneumococcal 13 2014-01-30 Completed [facility] of Conjugate, PCV13 00:00:00 [facility] (Prevnar 13) Branch Influenza Virus 2014-01-30 Completed [facility] of Vaccine (3+ yrs) 00:00:00 [facility] Branch Pneumococcal 13 2014-01-30 Completed [facility] of Conjugate, PCV13 00:00:00 [facility] (Prevnar 13) Branch Influenza Virus 2014-01-30 Completed [facility] Vaccine (3+ yrs) 00:00:00 [facility] Pneumococcal 13 2014-01-30 Completed [facility] of Conjugate, PCV13 00:00:00 [facility] (Prevnar 13) Branch Influenza Virus 2014-01-30 Completed [facility] Vaccine (3+ yrs) 00:00:00 [facility] Pneumococcal 13 2014-01-30 Completed [facility] of Conjugate, PCV13 00:00:00 [facility] (Prevnar 13) Branch Influenza Virus 2014-01-30 Completed [facility] of Vaccine (3+ yrs) 00:00:00 [facility] Pneumococcal 13 2014-01-30 Completed [facility] of Conjugate, PCV13 00:00:00 [facility] (Prevnar 13) Branch Influenza Virus 2014-01-30 Completed [facility] of Vaccine (3+ yrs) 00:00:00 [facility] Branch Pneumococcal 13 2014-01-30 Completed [facility] of Conjugate, PCV13 00:00:00 [facility] (Prevnar 13) Branch Influenza Virus 2014-01-30 Completed [facility] Vaccine (3+ yrs) 00:00:00 [place] [facility] Pneumococcal 13 2014-01-30 Completed [facility] of Conjugate, PCV13 00:00:00 [facility] (Prevnar 13) Branch Influenza Virus 2014-01-30 Completed [facility] of Vaccine (3+ yrs) 00:00:00 [facility] Branch Pneumococcal 13 2014-01-30 Completed [facility] of Conjugate, PCV13 00:00:00 [place] [facility] (Prevnar 13) Branch Influenza Virus 2014-01-30 Completed [facility] of Vaccine (3+ yrs) 00:00:00 [facility] Branch Pneumococcal 13 2014-01-30 Completed [facility] of Conjugate, PCV13 00:00:00 [place] [facility] (Prevnar 13) Branch Influenza Virus 2014-01-30 Completed [facility] of Vaccine (3+ yrs) 00:00:00 [facility] Branch Pneumococcal 13 2014-01-30 Completed [facility] of Conjugate, PCV13 00:00:00 [facility] (Prevnar 13) Branch Influenza Virus 2014-01-30 Completed [facility] of Vaccine (3+ yrs) 00:00:00 [facility] Branch Pneumococcal 13 2014-01-30 Completed [facility]it [facility] of Conjugate, PCV13 00:00:00 [facility] (Prevnar 13) Branch Pneumococcal 2012-02-16 Completed [facility] o f Polysaccharide, 00:00:00 [place] [facility] PPSV23 (PNEUMOVAX) Branch Influenza Virus 2012-02-16 Completed [facility] Vaccine 00:00:00 [facility] PPD (TB) 2012-02-16 Completed [facility] of 00:00:00 [facility] Pneumococcal 2012-02-16 Completed [facility] o f Polysaccharide, 00:00:00 [facility] PPSV23 (PNEUMOVAX) Branch Influenza Virus 2012-02-16 Completed [facility] of Vaccine 00:00:00 [facility] PPD (TB) 2012-02-16 Completed [facility] of 00:00:00 [facility] Pneumococcal 2012-02-16 Completed [facility] o f Polysaccharide, 00:00:00 [facility] PPSV23 (PNEUMOVAX) Branch Influenza Virus 2012-02-16 Completed [facility] of Vaccine 00:00:00 [facility] PPD (TB) 2012-02-16 Completed [facility] of 00:00:00 [facility] Pneumococcal 2012-02-16 Completed [facility] o f Polysaccharide, 00:00:00 [facility] PPSV23 (PNEUMOVAX) Branch Influenza Virus 2012-02-16 Completed [facility] of Vaccine 00:00:00 [facility] PPD (TB) 2012-02-16 Completed [facility] of 00:00:00 [facility] Pneumococcal 2012-02-16 Completed [facility] o f Polysaccharide, 00:00:00 [facility] PPSV23 (PNEUMOVAX) Branch Influenza Virus 2012-02-16 Completed [facility] of Vaccine 00:00:00 [facility] PPD (TB) 2012-02-16 Completed [facility] of 00:00:00 [facility] Pneumococcal 2012-02-16 Completed [facility] o f Polysaccharide, 00:00:00 [facility] PPSV23 (PNEUMOVAX) Branch Influenza Virus 2012-02-16 Completed [facility] of Vaccine 00:00:00 [facility] PPD (TB) 2012-02-16 Completed [facility] of 00:00:00 [facility] Pneumococcal 2012-02-16 Completed [facility] o f Polysaccharide, 00:00:00 [place] [facility] PPSV23 (PNEUMOVAX) Branch Influenza Virus 2012-02-16 Completed [facility] of Vaccine 00:00:00 [facility] PPD (TB) 2012-02-16 Completed [facility] of 00:00:00 [facility] Pneumococcal 2012-02-16 Completed [facility] o f Polysaccharide, 00:00:00 [place] [facility] PPSV23 (PNEUMOVAX) Branch Influenza Virus 2012-02-16 Completed [facility] of Vaccine 00:00:00 [facility] PPD (TB) 2012-02-16 Completed [facility] of 00:00:00 [facility] Pneumococcal 2012-02-16 Completed [facility] o f Polysaccharide, 00:00:00 [place] [facility] PPSV23 (PNEUMOVAX) Branch Influenza Virus 2012-02-16 Completed [facility] of Vaccine 00:00:00 [facility] PPD (TB) 2012-02-16 Completed [facility] of 00:00:00 [facility] Pneumococcal 2012-02-16 Completed [facility] o f Polysaccharide, 00:00:00 [facility] PPSV23 (PNEUMOVAX) Branch Influenza Virus 2012-02-16 Completed [facility] of Vaccine 00:00:00 [facility] PPD (TB) 2012-02-16 Completed [facility] of 00:00:00 [facility] Pneumococcal 2012-02-16 Completed [facility] o f Polysaccharide, 00:00:00 [facility] PPSV23 (PNEUMOVAX) Branch Influenza Virus 2012-02-16 Completed [facility] of Vaccine 00:00:00 [facility] PPD (TB) 2012-02-16 Completed [facility] of 00:00:00 [facility] Pneumococcal 2012-02-16 Completed [facility] o f Polysaccharide, 00:00:00 [place] [facility] PPSV23 (PNEUMOVAX) Branch Influenza Virus 2012-02-16 Completed [facility] of Vaccine 00:00:00 [facility] PPD (TB) 2012-02-16 Completed [facility] of 00:00:00 [facility] Pneumococcal 2012-02-16 Completed [facility] o f Polysaccharide, 00:00:00 [facility] PPSV23 (PNEUMOVAX) Branch Influenza Virus 2012-02-16 Completed [facility] of Vaccine 00:00:00 [facility] PPD (TB) 2012-02-16 Completed [facility] of 00:00:00 [facility] Pneumococcal 2012-02-16 Completed [facility] o f Polysaccharide, 00:00:00 [facility] PPSV23 (PNEUMOVAX) Branch Influenza Virus 2012-02-16 Completed [facility] of Vaccine 00:00:00 [facility] PPD (TB) 2012-02-16 Completed [facility] of 00:00:00 [facility] Pneumococcal 2012-02-16 Completed [facility] o f Polysaccharide, 00:00:00 [place] [facility] PPSV23 (PNEUMOVAX) Branch Influenza Virus 2012-02-16 Completed [facility] of Vaccine 00:00:00 [facility] PPD (TB) 2012-02-16 Completed [facility] of 00:00:00 [facility] Pneumococcal 2012-02-16 Completed [facility] o f Polysaccharide, 00:00:00 [place] [facility] PPSV23 (PNEUMOVAX) Branch Influenza Virus 2012-02-16 Completed [facility] of Vaccine 00:00:00 [facility] PPD (TB) 2012-02-16 Completed [facility] of 00:00:00 [facility] Pneumococcal 2012-02-16 Completed [facility] o f Polysaccharide, 00:00:00 [facility] PPSV23 (PNEUMOVAX) Branch Influenza Virus 2012-02-16 Completed [facility] of Vaccine 00:00:00 [facility] PPD (TB) 2012-02-16 Completed [facility] of 00:00:00 [facility] Pneumococcal 2012-02-16 Completed [facility] o f Polysaccharide, 00:00:00 [facility] PPSV23 (PNEUMOVAX) Branch Influenza Virus 2012-02-16 Completed [facility] of Vaccine 00:00:00 [facility] PPD (TB) 2012-02-16 Completed [facility] of 00:00:00 [facility] Pneumococcal 2012-02-16 Completed [facility] o f Polysaccharide, 00:00:00 [facility] PPSV23 (PNEUMOVAX) Branch Influenza Virus 2012-02-16 Completed [facility] of Vaccine 00:00:00 [facility] PPD (TB) 2012-02-16 Completed [facility] of 00:00:00 [facility] Pneumococcal 2012-02-16 Completed [facility] o f Polysaccharide, 00:00:00 [facility] PPSV23 (PNEUMOVAX) Branch Influenza Virus 2012-02-16 Completed [facility] of Vaccine 00:00:00 [facility] PPD (TB) 2012-02-16 Completed [facility] of 00:00:00 [facility] Pneumococcal 2012-02-16 Completed [facility] o f Polysaccharide, 00:00:00 [facility] PPSV23 (PNEUMOVAX) Branch Influenza Virus 2012-02-16 Completed [facility] of Vaccine 00:00:00 [facility] PPD (TB) 2012-02-16 Completed [facility] of 00:00:00 [facility] Pneumococcal 2012-02-16 Completed [facility] o f Polysaccharide, 00:00:00 [place] [facility] PPSV23 (PNEUMOVAX) Branch Influenza Virus 2012-02-16 Completed [facility] of Vaccine 00:00:00 [facility] PPD (TB) 2012-02-16 Completed [facility] of 00:00:00 [facility] Pneumococcal 2012-02-16 Completed [facility] o f Polysaccharide, 00:00:00 [facility] PPSV23 (PNEUMOVAX) Branch Influenza Virus 2012-02-16 Completed [facility] of Vaccine 00:00:00 [facility] PPD (TB) 2012-02-16 Completed [facility] of 00:00:00 [facility] Hep B, Adol or Pedi 2011-09-01 Completed Unive rsity of Dosage 00:00:00 [facility] Hep B, Adol or Pedi 2011-09-01 Completed Unive rsity of Dosage 00:00:00 [facility] Hep B, Adol or Pedi 2011-09-01 Completed Unive rsity of Dosage 00:00:00 [facility] Hep B, Adol or Pedi 2011-09-01 Completed Unive rsity of Dosage 00:00:00 [facility] Hep B, Adol or Pedi 2011-09-01 Completed Unive rsity of Dosage 00:00:00 [facility] Hep B, Adol or Pedi 2011-09-01 Completed Unive rsity of Dosage 00:00:00 [facility] Hep B, Adol or Pedi 2011-09-01 Completed Unive rsity of Dosage 00:00:00 [facility] Hep B, Adol or Pedi 2011-09-01 Completed Unive rsity of Dosage 00:00:00 [facility] Hep B, Adol or Pedi 2011-09-01 Completed Unive rsity of Dosage 00:00:00 [facility] Hep B, Adol or Pedi 2011-09-01 Completed Unive rsity of Dosage 00:00:00 [facility] Hep B, Adol or Pedi 2011-09-01 Completed Unive rsity of Dosage 00:00:00 [facility] Hep B, Adol or Pedi 2011-09-01 [...] of Dosage 00:00:00 [facility] Influenza Virus 2011-02-10 Completed [facility] of Vaccine 00:00:00 [facility] Hep B, Adol or Pedi 2011-02-10 Completed Unive rsity of Dosage 00:00:00 [facility] Influenza Virus 2011-02-10 Completed [facility] of Vaccine 00:00:00 [facility] Hep B, Adol or Pedi 2011-02-10 Completed Unive rsity of Dosage 00:00:00 [facility] Influenza Virus 2011-02-10 Completed [facility] of Vaccine 00:00:00 [facility] Hep B, Adol or Pedi 2011-02-10 Completed Unive rsity of Dosage 00:00:00 [facility] Influenza Virus 2011-02-10 Completed [facility] of Vaccine 00:00:00 [facility] Hep B, Adol or Pedi 2011-02-10 Completed Unive rsity of Dosage 00:00:00 [facility] Influenza Virus 2011-02-10 Completed [facility] of Vaccine 00:00:00 [facility] Hep B, Adol or Pedi 2011-02-10 Completed Unive rsity of Dosage 00:00:00 [facility] Influenza Virus 2011-02-10 Completed [facility] of Vaccine 00:00:00 [facility] Hep B, Adol or Pedi 2011-02-10 Completed Unive rsity of Dosage 00:00:00 [facility] Influenza Virus 2011-02-10 Completed [facility] of Vaccine 00:00:00 [facility] Hep B, Adol or Pedi 2011-02-10 Completed Unive rsity of Dosage 00:00:00 [facility] Influenza Virus 2011-02-10 Completed [facility] of Vaccine 00:00:00 [facility] Hep B, Adol or Pedi 2011-02-10 Completed Unive rsity of Dosage 00:00:00 [facility] Influenza Virus 2011-02-10 Completed [facility] of Vaccine 00:00:00 [facility] Hep B, Adol or Pedi 2011-02-10 Completed Unive rsity of Dosage 00:00:00 [facility] Influenza Virus 2011-02-10 Completed [facility] of Vaccine 00:00:00 [facility] Hep B, Adol or Pedi 2011-02-10 Completed Unive rsity of Dosage 00:00:00 [facility] Influenza Virus 2011-02-10 Completed [facility] of Vaccine 00:00:00 [facility] Hep B, Adol or Pedi 2011-02-10 Completed Unive rsity of Dosage 00:00:00 [facility] Influenza Virus 2011-02-10 Completed [facility] of Vaccine 00:00:00 [facility] Hep B, Adol or Pedi 2011-02-10 Completed Unive rsity of Dosage 00:00:00 [facility] Influenza Virus 2011-02-10 Completed [facility] of Vaccine 00:00:00 [facility] Hep B, Adol or Pedi 2011-02-10 Completed Unive rsity of Dosage 00:00:00 [facility] Influenza Virus 2011-02-10 Completed [facility] of Vaccine 00:00:00 [facility] Hep B, Adol or Pedi 2011-02-10 Completed Unive rsity of Dosage 00:00:00 [facility] Influenza Virus 2011-02-10 Completed [facility] of Vaccine 00:00:00 [facility] Hep B, Adol or Pedi 2011-02-10 Completed Unive rsity of Dosage 00:00:00 [facility] Influenza Virus 2011-02-10 Completed [facility] y of Vaccine 00:00:00 [facility] Hep B, Adol or Pedi 2011-02-10 Completed Unive rsity of Dosage 00:00:00 [facility] Influenza Virus 2011-02-10 Completed [facility] of Vaccine 00:00:00 [facility] Hep B, Adol or Pedi 2011-02-10 Completed Unive rsity of Dosage 00:00:00 [facility] Influenza Virus 2011-02-10 Completed [facility] of Vaccine 00:00:00 [facility] Hep B, Adol or Pedi 2011-02-10 Completed Unive rsity of Dosage 00:00:00 [facility] Influenza Virus 2011-02-10 Completed [facility] of Vaccine 00:00:00 [facility] Hep B, Adol or Pedi 2011-02-10 Completed Unive rsity of Dosage 00:00:00 [facility] Influenza Virus 2011-02-10 Completed [facility] of Vaccine 00:00:00 [facility] Hep B, Adol or Pedi 2011-02-10 Completed Unive rsity of Dosage 00:00:00 [facility] Influenza Virus 2011-02-10 Completed [facility] of Vaccine 00:00:00 [facility] Hep B, Adol or Pedi 2011-02-10 Completed Unive rsity of Dosage 00:00:00 [facility] Influenza Virus 2011-02-10 Completed [facility] of Vaccine 00:00:00 [facility] Hep B, Adol or Pedi 2011-02-10 Completed Unive rsity of Dosage 00:00:00 [facility] Influenza Virus 2011-02-10 Completed [facility] of Vaccine 00:00:00 [facility] Hep B, Adol or Pedi 2011-02-10 Completed Unive rsity of Dosage 00:00:00 [facility] PPD (TB) 2010-11-18 Completed [facility] of 00:00:00 [facility] TDAP (ADACEL) 2010-11-18 Completed University of VACCINE 00:00:00 [facility] PPD (TB) 2010-11-18 Completed [facility] of 00:00:00 [facility] TDAP (ADACEL) 2010-11-18 Completed University of VACCINE 00:00:00 [facility] PPD (TB) 2010-11-18 Completed [facility] of 00:00:00 [facility] TDAP (ADACEL) 2010-11-18 Completed University of VACCINE 00:00:00 [facility] PPD (TB) 2010-11-18 Completed [facility] of 00:00:00 [facility] TDAP (ADACEL) 2010-11-18 Completed University of VACCINE 00:00:00 [facility] PPD (TB) 2010-11-18 Completed [facility] of 00:00:00 [facility] TDAP (ADACEL) 2010-11-18 Completed University of VACCINE 00:00:00 [facility] PPD (TB) 2010-11-18 Completed [facility] of 00:00:00 [facility] TDAP (ADACEL) 2010-11-18 Completed University of VACCINE 00:00:00 [facility] PPD (TB) 2010-11-18 Completed [facility] of 00:00:00 [facility] TDAP (ADACEL) 2010-11-18 Completed University of VACCINE 00:00:00 [facility] PPD (TB) 2010-11-18 Completed [facility] of 00:00:00 [facility] TDAP (ADACEL) 2010-11-18 Completed University of VACCINE 00:00:00 [facility] PPD (TB) 2010-11-18 Completed [facility] of 00:00:00 [facility] TDAP (ADACEL) 2010-11-18 Completed University of VACCINE 00:00:00 [facility] PPD (TB) 2010-11-18 Completed [facility] 00:00:00 [facility] TDAP (ADACEL) 2010-11-18 Completed University of VACCINE 00:00:00 [facility] PPD (TB) 2010-11-18 Completed University of 00:00:00 [facility] TDAP (ADACEL) 2010-11-18 Completed University of VACCINE 00:00:00 [facility] PPD (TB) 2010-11-18 Completed [facility] of 00:00:00 [facility] TDAP (ADACEL) 2010-11-18 Completed University of VACCINE 00:00:00 [facility] PPD (TB) 2010-11-18 Completed [facility] of 00:00:00 [facility] TDAP (ADACEL) 2010-11-18 Completed University of VACCINE 00:00:00 [facility] PPD (TB) 2010-11-18 Completed [facility] of 00:00:00 [facility] TDAP (ADACEL) 2010-11-18 Completed University of VACCINE 00:00:00 [facility] PPD (TB) 2010-11-18 Completed [facility] of 00:00:00 [facility] TDAP (ADACEL) 2010-11-18 Completed University of VACCINE 00:00:00 [facility] PPD (TB) 2010-11-18 Completed [facility] of 00:00:00 [facility] TDAP (ADACEL) 2010-11-18 Completed University of VACCINE 00:00:00 [facility] PPD (TB) 2010-11-18 Completed [facility] of 00:00:00 [facility] TDAP (ADACEL) 2010-11-18 Completed [facility] of VACCINE 00:00:00 [facility] PPD (TB) 2010-11-18 Completed [facility] of 00:00:00 [facility] TDAP (ADACEL) 2010-11-18 Completed [facility] of VACCINE 00:00:00 [facility] PPD (TB) 2010-11-18 Completed [facility] of 00:00:00 [facility] TDAP (ADACEL) 2010-11-18 Completed [facility] of VACCINE 00:00:00 [facility] PPD (TB) 2010-11-18 Completed [facility] of 00:00:00 [facility] TDAP (ADACEL) 2010-11-18 Completed [facility] of VACCINE 00:00:00 [facility] PPD (TB) 2010-11-18 Completed [facility] of 00:00:00 [facility] TDAP (ADACEL) 2010-11-18 Completed [facility] of VACCINE 00:00:00 [facility] PPD (TB) 2010-11-18 Completed [facility] of 00:00:00 [facility] TDAP (ADACEL) 2010-11-18 Completed [facility] of VACCINE 00:00:00 [facility] PPD (TB) 2010-11-18 Completed [facility] of 00:00:00 [facility] TDAP (ADACEL) 2010-11-18 Completed University of VACCINE 00:00:00 [facility] HEPATITIS A 2004-03-02 Completed University of 00:00:00 [facility] HEPATITIS A 2004-03-02 Completed University of 00:00:00 [facility] HEPATITIS A 2004-03-02 Completed University of 00:00:00 [facility] HEPATITIS A 2004-03-02 Completed University of 00:00:00 [facility] HEPATITIS A 2004-03-02 Completed University of 00:00:00 [facility] HEPATITIS A 2004-03-02 Completed University of 00:00:00 [facility] HEPATITIS A 2004-03-02 Completed University of 00:00:00 [facility] HEPATITIS A 2004-03-02 Completed University of 00:00:00 [facility] HEPATITIS A 2004-03-02 Completed University of 00:00:00 [facility] HEPATITIS A 2004-03-02 Completed University of 00:00:00 [facility] HEPATITIS A 2004-03-02 Completed University of 00:00:00 [facility] HEPATITIS A 2004-03-02 Completed University of 00:00:00 [facility] HEPATITIS A 2004-03-02 Completed University of 00:00:00 [facility] HEPATITIS A 2004-03-02 Completed University of 00:00:00 [facility] HEPATITIS A 2004-03-02 Completed University of 00:00:00 [facility] HEPATITIS A 2004-03-02 Completed University of 00:00:00 [facility] HEPATITIS A 2004-03-02 Completed University of 00:00:00 [facility] HEPATITIS A 2004-03-02 Completed University of 00:00:00 [facility] HEPATITIS A 2004-03-02 Completed University of 00:00:00 [facility] HEPATITIS A 2004-03-02 Completed University of 00:00:00 [facility] HEPATITIS A 2004-03-02 Completed University of 00:00:00 [facility] HEPATITIS A 2004-03-02 Completed University of 00:00:00 [facility] HEPATITIS A 2004-03-02 Completed University of 00:00:00 [facility] HEPATITIS A 2003-08-01 Completed University of 00:00:00 [facility] HEPATITIS A 2003-08-01 Completed University of 00:00:00 [facility] HEPATITIS A 2003-08-01 Completed University of 00:00:00 [facility] HEPATITIS A 2003-08-01 Completed University of 00:00:00 [facility] HEPATITIS A 2003-08-01 Completed University of 00:00:00 [facility] HEPATITIS A 2003-08-01 Completed University of 00:00:00 [facility] HEPATITIS A 2003-08-01 Completed University of 00:00:00 [facility] HEPATITIS A 2003-08-01 Completed University of 00:00:00 [facility] HEPATITIS A 2003-08-01 Completed University of 00:00:00 [facility] HEPATITIS A 2003-08-01 Completed University of 00:00:00 [facility] HEPATITIS A 2003-08-01 Completed University of 00:00:00 [facility] HEPATITIS A 2003-08-01 Completed University of 00:00:00 [facility] HEPATITIS A 2003-08-01 Completed University of 00:00:00 [facility] HEPATITIS A 2003-08-01 Completed University of 00:00:00 [facility] HEPATITIS A 2003-08-01 Completed University of 00:00:00 [facility] HEPATITIS A 2003-08-01 Completed [facility] of 00:00:00 [facility] HEPATITIS A 2003-08-01 Completed University of 00:00:00 [facility] HEPATITIS A 2003-08-01 Completed University of 00:00:00 [facility] HEPATITIS A 2003-08-01 Completed University of 00:00:00 [facility] HEPATITIS A 2003-08-01 Completed University of 00:00:00 [facility] HEPATITIS A 2003-08-01 Completed University of 00:00:00 [facility] HEPATITIS A 2003-08-01 Completed University of 00:00:00 [facility] HEPATITIS A 2003-08-01 Completed [facility] of 00:00:00 [facility] Pneumococcal 2001-10-04 Completed University o f Polysaccharide, 00:00:00 [place] [facility] PPSV23 (PNEUMOVAX) [facility] PPD (TB) 2001-10-04 Completed [facility] of 00:00:00 [facility] Pneumococcal 2001-10-04 Completed University o f Polysaccharide, 00:00:00 [place] [facility] PPSV23 (PNEUMOVAX) [facility] PPD (TB) 2001-10-04 Completed [facility] of 00:00:00 [facility] Pneumococcal 2001-10-04 Completed University o f Polysaccharide, 00:00:00 [place] [facility] PPSV23 (PNEUMOVAX) [facility] PPD (TB) 2001-10-04 Completed [facility] of 00:00:00 [facility] Pneumococcal 2001-10-04 Completed University o f Polysaccharide, 00:00:00 [place] [facility] PPSV23 (PNEUMOVAX) [facility] PPD (TB) 2001-10-04 Completed [facility] of 00:00:00 [facility] Pneumococcal 2001-10-04 Completed University o f Polysaccharide, 00:00:00 [place] [facility] PPSV23 (PNEUMOVAX) [facility] PPD (TB) 2001-10-04 Completed [facility] of 00:00:00 [facility] Pneumococcal 2001-10-04 Completed University o f Polysaccharide, 00:00:00 [place] [facility] PPSV23 (PNEUMOVAX) [facility] PPD (TB) 2001-10-04 Completed University of 00:00:00 [facility] Pneumococcal 2001-10-04 Completed University o f Polysaccharide, 00:00:00 [place] [facility] PPSV23 (PNEUMOVAX) [facility] PPD (TB) 2001-10-04 Completed [facility] of 00:00:00 [facility] Pneumococcal 2001-10-04 Completed University o f Polysaccharide, 00:00:00 [place] [facility] PPSV23 (PNEUMOVAX) Branch PPD (TB) 2001-10-04 Completed [facility] of 00:00:00 [facility] Pneumococcal 2001-10-04 Completed University o f Polysaccharide, 00:00:00 [place] [facility] PPSV23 (PNEUMOVAX) Branch PPD (TB) 2001-10-04 Completed [facility] of 00:00:00 [facility] Pneumococcal 2001-10-04 Completed University o f Polysaccharide, 00:00:00 [place] [facility] PPSV23 (PNEUMOVAX) Branch PPD (TB) 2001-10-04 Completed [facility] of 00:00:00 [facility] Pneumococcal 2001-10-04 Completed University o f Polysaccharide, 00:00:00 [place] [facility] PPSV23 (PNEUMOVAX) Branch PPD (TB) 2001-10-04 Completed [facility] of 00:00:00 [facility] Pneumococcal 2001-10-04 Completed University o f Polysaccharide, 00:00:00 [place] [facility] PPSV23 (PNEUMOVAX) Branch PPD (TB) 2001-10-04 Completed [facility] of 00:00:00 [facility] Pneumococcal 2001-10-04 Completed University o f Polysaccharide, 00:00:00 [place] [facility] PPSV23 (PNEUMOVAX) Branch PPD (TB) 2001-10-04 Completed [facility] of 00:00:00 [facility] Pneumococcal 2001-10-04 Completed University o f Polysaccharide, 00:00:00 [place] [facility] PPSV23 (PNEUMOVAX) Branch PPD (TB) 2001-10-04 Completed [facility] of 00:00:00 [facility] Pneumococcal 2001-10-04 Completed University o f Polysaccharide, 00:00:00 [place] [facility] PPSV23 (PNEUMOVAX) Branch PPD (TB) 2001-10-04 Completed [facility] of 00:00:00 [facility] Pneumococcal 2001-10-04 Completed University o f Polysaccharide, 00:00:00 [place] [facility] PPSV23 (PNEUMOVAX) Branch PPD (TB) 2001-10-04 Completed [facility] of 00:00:00 [facility] Pneumococcal 2001-10-04 Completed University o f Polysaccharide, 00:00:00 [place] [facility] PPSV23 (PNEUMOVAX) Branch PPD (TB) 2001-10-04 Completed [facility] of 00:00:00 [facility] Pneumococcal 2001-10-04 Completed University o f Polysaccharide, 00:00:00 [place] [facility] PPSV23 (PNEUMOVAX) Branch PPD (TB) 2001-10-04 Completed [facility] of 00:00:00 [facility] Pneumococcal 2001-10-04 Completed University o f Polysaccharide, 00:00:00 [place] [facility] PPSV23 (PNEUMOVAX) Branch PPD (TB) 2001-10-04 Completed [facility] of 00:00:00 [facility] Pneumococcal 2001-10-04 Completed University o f Polysaccharide, 00:00:00 [place] [facility] PPSV23 (PNEUMOVAX) Branch PPD (TB) 2001-10-04 Completed [facility] of 00:00:00 [facility] Pneumococcal 2001-10-04 Completed University o f Polysaccharide, 00:00:00 [place] [facility] PPSV23 (PNEUMOVAX) [facility] PPD (TB) 2001-10-04 Completed [facility] of 00:00:00 [facility] Pneumococcal 2001-10-04 Completed University o f Polysaccharide, 00:00:00 [place] [facility] PPSV23 (PNEUMOVAX) Branch PPD (TB) 2001-10-04 Completed [facility] of 00:00:00 [facility] Pneumococcal 2001-10-04 Completed University o f Polysaccharide, 00:00:00 [place] [facility] PPSV23 (PNEUMOVAX) Branch PPD (TB) 2001-10-04 Completed University 00:00:00 [facility] Vital Signs Vital Name Observation Time Observation Value Comments Source Systolic blood 2022-05-10 22:00:00 159 mm[Hg] Univer sity of pressure [facility] Diastolic blood 2022-05-10 22:00:00 87 mm[Hg] Unive rsity of pressure [facility] Heart rate 2022-05-10 22:00:00 56 /min Universi ty of [facility] Body temperature 2022-05-10 22:00:00 36.61 Amina Univ ersity of [facility] Respiratory rate 2022-05-10 22:00:00 17 /min Univ ersity of [facility] Oxygen saturation in 2022-05-10 22:00:00 98 /min University of Arterial blood by [facility] Pulse oximetry Branch Body weight 2022-05-10 16:29:00 78.926 kg Universi ty of [place] [facility] BMI 2022-05-10 16:29:00 29.87 kg/m2 [facility]i ty [facility] [place] [facility] Systolic blood 2022-05-08 22:30:00 168 mm[Hg] Univer sity of pressure [facility] Diastolic blood 2022-05-08 22:30:00 85 mm[Hg] Unive rsity of pressure [facility] Heart rate 2022-05-08 22:30:00 68 /min Universi ty of [facility] Oxygen saturation in 2022-05-08 22:30:00 100 /min University of Arterial blood by [facility] Pulse oximetry Branch Body temperature 2022-05-08 22:22:00 35.89 Amina Univ ersity of [facility] Respiratory rate 2022-05-08 22:22:00 14 /min Univ ersity of [facility] Body weight 2022-05-08 22:22:00 78.926 kg Universi ty [facility] BMI 2022-05-08 22:22:00 29.87 kg/m2 [facility] Systolic blood 2022-05-07 00:00:00 149 mm[Hg] Univer sity of pressure [facility] Diastolic blood 2022-05-07 00:00:00 132 mm[Hg] Unive rsity of pressure [place] [facility] Heart rate 2022-05-07 00:00:00 59 /min Universi ty of [facility] Respiratory rate 2022-05-07 00:00:00 14 /min Univ ersity of [facility] Oxygen saturation in 2022-05-07 00:00:00 99 /min [facility] of Arterial blood by [place] [facility] Pulse oximetry [facility] Body temperature 2022-05-06 20:12:00 36.5 Amina Univ ersity of [facility] Body height 2022-05-06 20:12:00 162.6 cm [facility]i ty [facility] Body weight 2022-05-06 20:12:00 78.926 kg [facility]i ty [facility] [place] [facility] BMI 2022-05-06 20:12:00 29.87 kg/m2 [facility] [place] [facility] Systolic blood 2022-04-22 19:50:00 156 mm[Hg] Univer sity of pressure [facility] Diastolic blood 2022-04-22 19:50:00 89 mm[Hg] Unive rsity of pressure [facility] Heart rate 2022-04-22 19:50:00 69 /min [facility]i ty [facility] Body temperature 2022-04-22 19:50:00 36.67 Amina Univ ersity of [place] [facility] Respiratory rate 2022-04-22 19:50:00 17 /min Univ ersity of [facility] Body height 2022-04-22 19:50:00 162.6 cm [facility]i ty [facility] Body weight 2022-04-22 19:50:00 80.74 kg [facility]i ty [facility] BMI 2022-04-22 19:50:00 30.55 kg/m2 [facility] Oxygen saturation in 2022-04-22 19:50:00 96 /min University of Arterial blood by [place] [facility] Pulse oximetry [facility] Systolic blood 2022-03-05 15:23:00 167 mm[Hg] Univer sity of pressure [place] [facility] Diastolic blood 2022-03-05 15:23:00 105 mm[Hg] Unive rsity of pressure [facility] Heart rate 2022-03-05 15:23:00 49 /min [facility]i ty [facility] [place] [facility] Body temperature 2022-03-05 15:18:00 36.67 Amina Univ ersity of [place] [facility] Respiratory rate 2022-03-05 15:18:00 18 /min Univ ersity of [facility] Body height 2022-03-05 15:18:00 162.6 cm [facility]i [facility] [place] [facility] Body weight 2022-03-05 15:18:00 74.707 kg [facility] [place] [facility] BMI 2022-03-05 15:18:00 28.27 kg/m2 [facility] [place] [facility] Systolic blood 2022-02-16 21:41:00 169 mm[Hg] Univer sity of pressure [facility] Diastolic blood 2022-02-16 21:41:00 86 mm[Hg] Unive rsity of pressure [facility] Heart rate 2022-02-16 21:41:00 51 /min [facility]i ty [facility] [place] [facility] [place] Body temperature 2022-02-16 21:41:00 36.56 Amina Univ ersity of [facility] Respiratory rate 2022-02-16 21:41:00 17 /min Univ ersity of [facility] Oxygen saturation in 2022-02-16 21:41:00 98 /min University of Arterial blood by [facility] Pulse oximetry Branch Body height 2022-02-11 16:02:00 162.6 cm [facility]i ty [facility] [place] [facility] Body weight 2022-02-11 16:02:00 79.379 kg [facility]i ty [facility] [place] [facility] BMI 2022-02-11 16:02:00 30.04 kg/m2 [facility] [place] [facility] Systolic blood 2021-11-20 13:47:00 165 mm[Hg] Univer sity of pressure [facility] Diastolic blood 2021-11-20 13:47:00 83 mm[Hg] Unive rsity of pressure [facility] Heart rate 2021-11-20 13:47:00 58 /min [facility]i ty [facility] [place] [facility] Body temperature 2021-11-20 13:42:00 36.39 Amina Univ ersity of [facility] Respiratory rate 2021-11-20 13:42:00 16 /min Univ ersity of [facility] Body height 2021-11-20 13:42:00 162.6 cm [facility]i ty [facility] [place] [facility] Body weight 2021-11-20 13:42:00 84.369 kg [facility] [place] [facility] BMI 2021-11-20 13:42:00 31.93 kg/m2 Universi ty of [facility] Systolic blood 2021-07-14 15:18:00 142 mm[Hg] [facility] Diastolic blood 2021-07-14 15:18:00 76 mm[Hg] [facility] Heart rate 2021-07-14 15:18:00 61 [facility] Body height 2021-07-14 15:18:00 [facility]6 [facility] Body weight 2021-07-14 15:18:00 94[facility]802 [facility] BMI 2021-07-14 15:18:00 35.87 [facility] 2022-05-10 22:00:00 159 mm[Hg] Univer sity of pressure [facility] Diastolic blood 2022-05-10 22:00:00 87 mm[Hg] Unive rsity of pressure [facility] Heart rate 2022-05-10 22:00:00 56 /min [facility]i ty [facility] [place] [facility] [place] Body temperature 2022-05-10 22:00:00 36.61 Amina [facility] Respiratory rate 2022-05-10 22:00:00 17 /min [facility] in 2022-05-10 22:00:00 98 /min [facility] Arterial blood by [facility] Pulse oximetry Branch Body weight 2022-05-10 16:29:00 78.926 kg [facility]i ty [facility] BMI 2022-05-10 16:29:00 29.87 kg/m2 [facility] Body height 2022-05-06 20:12:00 162.6 cm Universi ty of [facility] Systolic blood 2022-03-05 15:23:00 167 mm[Hg] Univer sity of pressure [facility] Diastolic blood 2022-03-05 15:23:00 105 mm[Hg] Unive rsity of pressure [facility] Heart rate 2022-03-05 15:23:00 49 /min [facility] Body temperature 2022-03-05 15:18:00 36.67 Amina [facility] Respiratory rate 2022-03-05 15:18:00 18 /min [facility] Body height 2022-03-05 15:18:00 162.6 cm [facility] Body weight 2022-03-05 15:18:00 74.707 kg [facility] BMI 2022-03-05 15:18:00 28.27 kg/m2 [facility] Oxygen saturation in 2022-02-16 21:41:00 98 /min University Arterial blood by [facility] Pulse oximetry Branch Systolic blood 2020-12-08 15:48:00 125 mm[Hg] [facility] pressure Diastolic blood 2020-12-08 15:48:00 76 mm[Hg] [facility] pressure Heart rate 2020-12-08 15:48:00 64 /min [facility] Body temperature 2020-12-08 15:48:00 36.61 Amina [facility] Respiratory rate 2020-12-08 15:48:00 17 /min [facility] Body height 2020-12-08 15:48:00 162.6 cm [facility] Body weight 2020-12-08 15:48:00 98.884 kg [facility] BMI 2020-12-08 15:48:00 37.42 kg/m2 [facility] Oxygen saturation in 2020-12-08 15:48:00 97 /min [facility] Arterial blood by Pulse oximetry Respitory Rate 2020-08-30 13:00:00 Memori al [facility] Systolic (mm Hg) 2020-08-30 13:00:00 Caesar rial [place] Diastolic (mm Hg) 2020-08-30 13:00:00 Mem orial [place] Systolic (mm Hg) 2020-08-30 11:00:00 Caesar rial [place] Diastolic (mm Hg) 2020-08-30 11:00:00 Mem orial [facility] Temperature Oral (F) 2020-08-30 11:00:00 98.4 F [facility] Respitory Rate 2020-08-30 11:00:00 Memori al [place] Respitory Rate 2020-08-30 10:00:00 Memori al [facility] Systolic (mm Hg) 2020-08-30 10:00:00 Caesar jonatan [facility] Diastolic (mm Hg) 2020-08-30 10:00:00 Mem orial [facility] Temperature Oral (F) 2020-08-30 00:00:00 96.9 F [facility] [place] Temperature Oral (F) 2020-08-29 11:26:00 97.6 F [facility] Marty Height 2020-08-29 10:30:00 162.56 cm [facility] Weight 2020-08-29 10:30:00 [facility] BMI Calculated 2020-08-29 10:30:00 Darien Hammond Procedures Procedure Date / Time Performing Clinician Source Performed URINALYSIS 2022-05-10 19:36:00 Home Matthews [facility] TROPONIN I 2022-05-10 18:34:00 Home Matthews [facility] COMP. METABOLIC PANEL 2022-05-10 18:34:00 Home Matthews [facility] ([id number]) [facility] CBC WITH DIFF 2022-05-10 18:34:00 Home Matthews [facility] XR CHEST 2 VW 2022-05-10 17:24:58 Home Matthews [facility] CONSENT/REFUSAL FOR 2022-05-10 16:26:23 Doctor Unassigned, [facility] DIAGNOSIS AND TREATMENT [place] [facility] CONSENT/REFUSAL FOR 2022-05-10 16:26:09 Doctor Unassigned, [facility] DIAGNOSIS AND TREATMENT [place] [facility] URINALYSIS 2022-05-08 22:43:00 Theresa Hickman [facility] XR CHEST 2 VW 2022-05-06 22:56:53 Anette Olea [facility] COMP. METABOLIC PANEL 2022-05-06 22:14:00 Anette Olea [facility] ([id number]) [facility] CBC WITH DIFF 2022-05-06 22:14:00 Anette Olea [facility] COVID-19 (ID NOW RAPID 2022-05-06 22:14:00 Anette Olea [facility] TESTING) Medical [place] BASIC METABOLIC PANEL (NA, 2022-04-22 21:23:00 Paulette Gray [facility] K, CL, CO2, GLUCOSE, BUN, Medica l Branch CREATININE, [place]) CBC WITH DIFF 2022-04-22 21:23:00 Paulette Gray [facility] CONSENT/REFUSAL FOR 2022-04-22 19:45:46 Doctor Unassigned, [facility] DIAGNOSIS AND TREATMENT [facility] SARS-COV-2 COVID-19 2022-03-05 16:09:27 [facility] DIMITRIS-SUCROSE VACCINE [address] [place] [address] YRS+, BIVALENT 0.3ML, IM, (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) FLU 2022-03-05 16:09:27 [facility] VACC(),65+YR,0.5 Medica l Branch ML,IM,ADJUVANTED,QUAD(FLUA D) FLU 2022-03-05 16:09:27 [facility] VACC(),65+YR,0.5 Medica l Branch ML,IM,ADJUVANTED,QUAD(FLUA D) SARS-COV-2 COVID-19 2022-03-05 16:09:27 [facility] DIMITRIS-SUCROSE VACCINE [address] [place] [address] YRS+, BIVALENT 0.3ML, IM, (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) MAGNESIUM 2022-02-15 09:41:00 Radha Sofia [facility] BASIC METABOLIC PANEL (NA, 2022-02-15 09:41:00 Sofia Garcia [facility] K, CL, CO2, GLUCOSE, BUN, Medica l Branch CREATININE, [place]) CBC WITH DIFF 2022-02-15 09:41:00 Sofia Garcia [facility] N-TERMINAL PRO-BNP 2022-02-15 09:41:00 Sofia Garcia [facility] CBC WITH DIFF 2022-02-15 09:41:00 Sofia Garcia [facility] BASIC METABOLIC PANEL (NA, 2022-02-15 09:41:00 Sofia Garcia [facility] K, CL, CO2, GLUCOSE, BUN, Medica l Branch CREATININE, CA) MAGNESIUM 2022-02-15 09:41:00 Sofia Garcia [facility] N-TERMINAL PRO-BNP 2022-02-15 09:41:00 Sofia Garcia [facility] BASIC METABOLIC PANEL (NA, 2022-02-13 09:40[facility]00 [facility], GLUCOSE, BUN, Medica l Branch CREATININE, CA) CBC WITH DIFF 2022-02-13 09:40:00 Sofia Garcia [facility] BASIC METABOLIC PANEL (NA, 2022-02-13 09:40:00 [facility] K, CL, CO2, GLUCOSE, BUN, Medica l Branch CREATININE, CA) CBC WITH DIFF 2022-02-13 09:40:00 Radha [facility] TROPONIN I 2022-02-11 23:41:00 Radha [facility] N-TERMINAL PRO-BNP 2022-02-11 23:41:00 Sofia Garcia [facility] TROPONIN I 2022-02-11 23:41:00 Radha [facility] N-TERMINAL PRO-BNP 2022-02-11 23:41:00 Sofia Garcia [facility] HB ECG ROUTINE & RHYTHM 2022-02-11 22:15:36 Sofia Garcia [facility] TRANSTHORACIC ECHO (TTE) 2022-02-11 21:26:50 [facility] 2022-02-11 21:26:50 [facility] 2022-02-11 07:45:[address] [facility] CT ABDOMEN PELVIS W 2022-02-11 07:45:43 Reilly Means [facility] CONTRAST [facility] RAPID INFLUENZA A/B 2022-02-11 06:54:00 Reilly Means [facility] RAPID INFLUENZA A/B 2022-02-11 06:54:00 Reilly Means [facility] URINALYSIS 2022-02-11 06:45:00 Reilly Means [facility] [...] BLOOD CULTURE SCREEN 2022-02-11 04:58:00 Reilly Means [facility] TROPONIN I 2022-02-11 04:58:00 Reilly Means [facility] COMP. METABOLIC PANEL 2022-02-11 04:58[id number] CBC WITH DIFF 2022-02-11 04:58:00 Reilly Means [facility] PROTHROMBIN TIME / INR 2022-02-11 04:58:00 Reilly Means [facility] ACTIVATED PARTIAL THRMPLAS 2022-02-11 04:58:00 Reilly Means [facility] N-TERMINAL PRO-BNP 2022-02-11 04:58:00 Reilly Means [facility] LACTIC ACID WHOLE BLOOD 2022-02-11 04:58:00 Reilly Means [facility] COVID-19 (ID NOW RAPID 2022-02-11 04:58:00 Reilly Means [facility] TESTING) Medical Branch LAB ONLY COVID 2022-02-11 04:58:00 Reilly Means [facility] CBC WITH DIFF 2022-02-11 04:58:00 Reilly Means [facility] ACTIVATED PARTIAL THRMPLAS 2022-02-11 04:58:00 Reilly Means [facility] PROTHROMBIN TIME / INR 2022-02-11 04:58:00 Reilly Means [facility] COVID-19 (ID NOW RAPID 2022-02-11 04:58:00 Reilly Means [facility] TESTING) Medical [place] COMP. METABOLIC PANEL 2022-02-11 04:58:00 Reilly Means [facility] ([id number]) [facility] [place] TROPONIN I 2022-02-11 04:58:00 Miguelangel Reilly [facility] N-TERMINAL PRO-BNP 2022-02-11 04:58:00 Reilly Means [facility] BLOOD CULTURE SCREEN 2022-02-11 04:58:00 Reilly Means [facility] LACTIC ACID WHOLE BLOOD 2022-02-11 04:58:00 Reilly Means [facility] LAB ONLY COVID 2022-02-11 04:58:00 [facility] INTERPRETATION [facility] XR CHEST 1 VW 2022-02-11 04:27:42 Miguelangel Reilly [facility] XR CHEST 1 2022-02-11 04:27:42 Reilly Means [facility] HOSPITAL ADMISSION 2022-02-10 05:01:00 Doctor Unassigned, [facility] [place] HOSPITAL ADMISSION 2022-02-10 05:01:00 Doctor Unassigned, [facility] Name Medical Branch ECG 12-LEAD 2021-07-14 15:14:00 Elan Lira [facility] [id number] 2021-06-17 00:00:00 RASSA [facility] GASTROINTESTINAL PANEL 2020-12-08 22:21:00 Eliseo Arce [facility] XR ABDOMEN 1 2020-12-08 18:06:32 Eliseo Arce spital OR [place] < 1 HOUR 2020-09-05 22:39:00 Eliseo Arce spital SURGICAL PATHOLOGY REQUEST 2020-09-05 21:54:[address] [facility] XR CHEST 1 PORTABLE 2020-09-05 19:55:00 [facility] DISCHARGE PATIENT 2020-09-05 17:27:55 Lucas Harris [facility] DE AN ELECTIVE 2020-09-05 16:47:23 [facility]AY EGD, INTRAOPERATIVE 2020-09-05 16:27:00 Eliseo Arce [facility] PARTIAL THROMBOPLASTIN 2020-09-05 15:04:[address] [facility] TIME (PTT) M. PROTHROMBIN TIME WITH INR 2020-09-05 15:04:00 Mindy Maharaj [facility] M. Plan of Care Planned Activity Planned Date Details Comments Source Future Scheduled 2023-01-17 Screening for [facility] Test 02:09:59 malignant neoplasm of colon (procedure) [code = 047101551] Future Scheduled 2023-01-17 Screening for [facility] Test 02:09:59 malignant neoplasm of colon (procedure) [code = 476442813] Future Scheduled 2023-01-17 Screening for [facility] Test 02:09:59 malignant neoplasm of colon (procedure) [code = 699156462] Future Scheduled 2023-01-17 SHINGLES VACCINES (1 Met [facility] Test 02:09:59 of 2) [code = SHINGLES VACCINES (1 of 2)] Future Scheduled 2023-01-17 BREAST CANCER [facility] Test 02:09:59 SCREENING [code = BREAST CANCER SCREENING] Future Scheduled 2023-01-17 Screening for [facility] Test 02:09:59 malignant neoplasm of colon (procedure) [code = 921764170] Future Scheduled 2023-01-17 Screening for [facility] Test 02:09:59 malignant neoplasm of colon (procedure) [code = 989584804] Future Scheduled 2023-01-17 HEPATITIS B VACCINES Met [facility] Test 02:09:59 (1 of 3 - Risk 3-dose series) [code = HEPATITIS B VACCINES (1 of 3 - Risk 3-dose series)] Future Scheduled 2023-01-17 COVID-19 VACCINE (3 - Me [facility] [place] Test 02:09:59 Pfizer series) [code = COVID-19 VACCINE (3 - Pfizer series)] Future Scheduled 2023-01-17 65+ PNEUMOCOCCAL [facility] Test 02:09:59 VACCINE (4 - PPSV23 if available, else PCV20) [code = 65+ PNEUMOCOCCAL VACCINE (4 - PPSV23 if available, else PCV20)] Future Scheduled 2023-01-17 [facility]INE (#[facility] [code = INFLUENZA VACCINE (#1)] Future Scheduled 2022-12-23 Screening for [facility] Test 06:27:39 malignant neoplasm of colon (procedure) [code = 617148748] Future Scheduled 2022-12-23 Screening for [facility] Test 06:27:39 malignant neoplasm of colon (procedure) [code = 715081260] Future Scheduled 2022-12-23 Scre[facility] Test 06:27:39 malignant neoplasm of colon (procedure) [code = 593492476] Future Scheduled 2022-12-23 SHINGLES VACCINES (1 Met [facility] Test 06:27:39 of 2) [code = SHINGLES VACCINES (1 of 2)] Future Scheduled 2022-12-23 BREAST CANCER [facility] Test 06:27:39 SCREENING [code = BREAST CANCER SCREENING] Future Scheduled 2022-12-23 Screening for [facility] Test 06:27:39 malignant neoplasm of colon (procedure) [code = 855314851] Future Scheduled 2022-12-23 Screening for [facility] Test 06:27:39 malignant neoplasm of colon (procedure) [code = 812849273] Future Scheduled 2022-12-23 HEPATITIS B VACCINES Met [facility] Test 06:27:39 (1 of 3 - Risk 3-dose series) [code = HEPATITIS B VACCINES (1 of 3 - Risk 3-dose series)] Future Scheduled 2022-12-23 COVID-19 VACCINE (3 - Me [facility] Test 06:27:39 Pfizer series) [code = COVID-19 VACCINE (3 - Pfizer series)] Future Scheduled 2022-12-23 65+ [facility] VACCINE (4 - PPSV23 if available, else PCV20) [code = 65+ PNEUMOCOCCAL VACCINE (4 - PPSV23 if available, else PCV20)] Future Scheduled 2022-12-23 INFLUENZA VACCINE Method [facility] Test 06:27:39 [code = INFLUENZA VACCINE] Future Scheduled 2022-12-23 Screening [facility] Test 06:27:39 malignant neoplasm of colon (procedure) [code = 068164161] Future Scheduled 2022-12-23 Screening [facility] Test 06:27:39 malignant neoplasm of colon (procedure) [code = 299936607] Future Scheduled 2022-12-23 Screening for [facility] Test 06:27:39 malignant neoplasm of colon (procedure) [code = 142723767] Future Scheduled 2022-12-23 SHINGLES VACCINES (1 Met [facility] Test 06:27:39 of 2) [code = SHINGLES VACCINES (1 of 2)] Future Scheduled 2022-12-23 BREAST CANCER [facility] Test 06:27:39 SCREENING [code = BREAST CANCER SCREENING] Future Scheduled 2022-12-23 Screening for [facility] Test 06:27:39 malignant neoplasm of colon (procedure) [code = 433618884] Future Scheduled 2022-12-23 Screening for [facility] Test 06:27:39 malignant neoplasm of colon (procedure) [code = 018036364] Future Scheduled 2022-12-23 HEPATITIS B VACCINES Met [facility] Test 06:27:39 (1 of 3 - Risk 3-dose series) [code = HEPATITIS B VACCINES (1 of 3 - Risk 3-dose series)] Future Scheduled 2022-12-23 COVID-19 VACCINE (3 - Me [facility] Test 06:27:39 Pfizer series) [code = COVID-19 VACCINE (3 - Pfizer series)] Future Scheduled 2022-12-23 65+ PNEUMOCOCCAL [facility] Test 06:27:39 VACCINE (4 - PPSV23 if available, else PCV20) [code = 65+ PNEUMOCOCCAL VACCINE (4 - PPSV23 if available, else PCV20)] Future Scheduled 2022-12-23 INFLUENZA VACCINE [facility] Test 06:27:39 [code = INFLUENZA VACCINE] Future Scheduled 2022-12-23 Screening for [facility] Test 06:27:39 malignant neoplasm of colon (procedure) [code = 938903872] Future Scheduled 2022-12-23 Screening for [facility] Test 06:27:39 malignant neoplasm of colon (procedure) [code = 489286442] Future Scheduled 2022-12-23 Screening for [facility] Test 06:27:39 malignant neoplasm of colon (procedure) [code = 621929908] Future Scheduled 2022-12-23 SHINGLES VACCINES (1 Met [facility] Test 06:27:39 of 2) [code = SHINGLES VACCINES (1 of 2)] Future Scheduled 2022-12-23 BREAST CANCER [facility] Test 06:27:39 SCREENING [code = BREAST CANCER SCREENING] Future Scheduled 2022-12-23 Screening [facility] Test 06:27:39 malignant neoplasm of colon (procedure) [code = 107764281] Future Scheduled 2022-12-23 Scre[facility] Test 06:27:39 malignant neoplasm of colon (procedure) [code = 431012343] Future Scheduled 2022-12-23 HEPATITIS B VACCINES Met [facility] Test 06:27:39 (1 of 3 - Risk 3-dose series) [code = HEPATITIS B VACCINES (1 of 3 - Risk 3-dose series)] Future Scheduled 2022-12-23 COVID-19 VACCINE (3 - [facility] Test 06:27:39 Pfizer series) [code = COVID-19 VACCINE (3 - Pfizer series)] Future Scheduled 2022-12-23 65+ PNEUMOCOCCAL [facility] Hospital Test 06:27:39 VACCINE (4 - PPSV23 if available, else PCV20) [code = 65+ PNEUMOCOCCAL VACCINE (4 - PPSV23 if available, else PCV20)] Future Scheduled 2022-12-23 INFLUENZA VACCINE [facility] Test 06:27:39 [code = INFLUENZA VACCINE] Future Scheduled 2022-12-23 [facility] malignant neoplasm of colon (procedure) [code = 119591400] Future Scheduled 2022-12-23 Screening for [facility] Test 06:27:39 malignant neoplasm of colon (procedure) [code = 455676209] Future Scheduled 2022-12-23 Screening for [facility] Test 06:27:39 malignant neoplasm of colon (procedure) [code = 512858513] Future Scheduled 2022-12-23 SHINGLES VACCINES (1 Met [facility] Test 06:27:39 of 2) [code = SHINGLES VACCINES (1 of 2)] Future Scheduled 2022-12-23 BREAST CANCER [facility] Test 06:27:39 SCREENING [code = BREAST CANCER SCREENING] Future Scheduled 2022-12-23 Screening for [facility] Test 06:27:39 malignant neoplasm of colon (procedure) [code = 261201298] Future Scheduled 2022-12-23 [facility] Test 06:27:39 malignant neoplasm of colon (procedure) [code = 496859585] Future Scheduled 2022-12-23 HEPATITIS B VACCINES Met [facility] Test 06:27:39 (1 of 3 - Risk 3-dose series) [code = HEPATITIS B VACCINES (1 of 3 - Risk 3-dose series)] Future Scheduled 2022-12-23 COVID-19 VACCINE (3 - Me [facility] Test 06:27:39 Pfizer series) [code = COVID-19 VACCINE (3 - Pfizer series)] Future Scheduled 2022-12-23 65+ [facility] 06:27:39 VACCINE (4 - PPSV23 if available, else PCV20) [code = 65+ PNEUMOCOCCAL VACCINE (4 - PPSV23 if available, else PCV20)] Future Scheduled 2022-12-23 INFLUENZA VACCINE [facility] Test 06:27:39 [code = INFLUENZA VACCINE] Future Scheduled 2022-12-23 Screening for [facility] Test 06:27:39 malignant neoplasm of colon (procedure) [code = 384940821] Future Scheduled 2022-12-23 Screening for [facility] Test 06:27:39 malignant neoplasm of colon (procedure) [code = 429629327] Future Scheduled 2022-12-23 Screening for [facility] Test 06:27:39 malignant neoplasm of colon (procedure) [code = 868109589] Future Scheduled 2022-12-23 SHINGLES VACCINES (1 Met [facility] Test 06:27:39 of 2) [code = SHINGLES VACCINES (1 of 2)] Future Scheduled 2022-12-23 BREAST CANCER [facility] Test 06:27:39 SCREENING [code = BREAST CANCER SCREENING] Future Scheduled 2022-12-23 Screening for [facility] Test 06:27:39 malignant neoplasm of colon (procedure) [code = 222155908] Future Scheduled 2022-12-23 Screening for [facility] Test 06:27:39 malignant neoplasm of colon (procedure) [code = 663597721] Future Scheduled 2022-12-23 HEPATITIS B VACCINES Met [facility] Test 06:27:39 (1 of 3 - Risk 3-dose series) [code = HEPATITIS B VACCINES (1 of 3 - Risk 3-dose series)] Future Scheduled 2022-12-23 COVID-19 VACCINE (3 - [facility] Test 06:27:39 Pfizer series) [code = COVID-19 VACCINE (3 - Pfizer series)] Future Scheduled 2022-12-23 65+ PNEUMOCOCCAL [facility] Test 06:27:39 VACCINE (4 - PPSV23 if available, else PCV20) [code = 65+ PNEUMOCOCCAL VACCINE (4 - PPSV23 if available, else PCV20)] Future Scheduled 2022-12-23 ZZZ INFLUENZA VACCINE Me [facility] [place] Test 06:27:39 [code = ZZZ INFLUENZA VACCINE] Future Scheduled 2022-12-23 Scre[facility] Test 06:27:39 malignant neoplasm of colon (procedure) [code = 751101239] Future Scheduled 2022-12-23 Scre[facility] Test 06:27:39 malignant neoplasm of colon (procedure) [code = 775727290] Future Scheduled 2022-12-23 [facility] Test 06:27:39 malignant neoplasm of colon (procedure) [code = 690889060] Future Scheduled 2022-12-23 SHINGLES VACCINES (1 Met [facility] Test 06:27:39 of 2) [code = SHINGLES VACCINES (1 of 2)] Future Scheduled 2022-12-23 BREAST CANCER [facility] Test 06:27:39 SCREENING [code = BREAST CANCER SCREENING] Future Scheduled 2022-12-23 Screening for [facility] Test 06:27:39 malignant neoplasm of colon (procedure) [code = 818445042] Future Scheduled 2022-12-23 Screening for [facility] Test 06:27:39 malignant neoplasm of colon (procedure) [code = 594160328] Future Scheduled 2022-12-23 HEPATITIS B VACCINES Met [facility] Test 06:27:39 (1 of 3 - Risk 3-dose series) [code = HEPATITIS B VACCINES (1 of 3 - Risk 3-dose series)] Future Scheduled 2022-12-23 COVID-19 VACCINE (3 - Me [facility] Test 06:27:39 Pfizer series) [code = COVID-19 VACCINE (3 - Pfizer series)] Future Scheduled 2022-12-23 65+ PNEUMOCOCCAL [facility] Hospital Test 06:27:39 VACCINE (4 - PPSV23 if available, else PCV20) [code = 65+ PNEUMOCOCCAL VACCINE (4 - PPSV23 if available, else PCV20)] Future Scheduled 2022-12-23 ZZZ INFLUENZA VACCINE [facility] Test 06:27:39 [code = ZZZ INFLUENZA VACCINE] Future Scheduled 2022-12-13 Scre[facility] Test 16:46:16 malignant neoplasm of colon (procedure) [code = 520983003] Future Scheduled 2022-12-13 [facility] Test 16:46:16 malignant neoplasm of colon (procedure) [code = 180204239] Future Scheduled 2022-12-13 [facility] Test 16:46:16 malignant neoplasm of colon (procedure) [code = 944908392] Future Scheduled 2022-12-13 SHINGLES VACCINES (1 Met [facility] Test 16:46:16 of 2) [code = SHINGLES VACCINES (1 of 2)] Future Scheduled 2022-12-13 BREAST CANCER [facility] Test 16:46:16 SCREENING [code = BREAST CANCER SCREENING] Future Scheduled 2022-12-13 Screening for [facility] Test 16:46:16 malignant neoplasm of colon (procedure) [code = 175407880] Future Scheduled 2022-12-13 Screening for [facility] Test 16:46:16 malignant neoplasm of colon (procedure) [code = 200964229] Future Scheduled 2022-12-13 HEPATITIS B VACCINES Met [facility] Test 16:46:16 (1 of 3 - Risk 3-dose series) [code = HEPATITIS B VACCINES (1 of 3 - Risk 3-dose series)] Future Scheduled 2022-12-13 COVID-19 VACCINE (3 - Me [facility] Test 16:46:16 Pfizer series) [code = COVID-19 VACCINE (3 - Pfizer series)] Future Scheduled 2022-12-13 65+ [facility] 16:46:16 VACCINE (4 - PPSV23 if available, else PCV20) [code = 65+ PNEUMOCOCCAL VACCINE (4 - PPSV23 if available, else PCV20)] Future Scheduled 2022-12-13 INFLUENZA VACCINE [facility] Test 16:46:16 [code = INFLUENZA VACCINE] Future Scheduled 2022-12-13 [facility] Test 16:46:16 malignant neoplasm of colon (procedure) [code = 124784197] Future Scheduled 2022-12-13 [facility] Test 16:46:16 malignant neoplasm of colon (procedure) [code = 080964610] Future Scheduled 2022-12-13 [facility] Test 16:46:16 malignant neoplasm of colon (procedure) [code = 461543277] Future Scheduled 2022-12-13 SHINGLES VACCINES (1 Met [facility] Test 16:46:16 of 2) [code = SHINGLES VACCINES (1 of 2)] Future Scheduled 2022-12-13 BREAST CANCER [facility] Test 16:46:16 SCREENING [code = BREAST CANCER SCREENING] Future Scheduled 2022-12-13 Screening for [facility] Test 16:46:16 malignant neoplasm of colon (procedure) [code = 553871679] Future Scheduled 2022-12-13 Screening for [facility] Test 16:46:16 malignant neoplasm of colon (procedure) [code = 135068311] Future Scheduled 2022-12-13 HEPATITIS B VACCINES Met [facility] Test 16:46:16 (1 of 3 - Risk 3-dose series) [code = HEPATITIS B VACCINES (1 of 3 - Risk 3-dose series)] Future Scheduled 2022-12-13 COVID-19 VACCINE (3 - Me [facility] Test 16:46:16 Pfizer series) [code = COVID-19 VACCINE (3 - Pfizer series)] Future Scheduled 2022-12-13 65+ PNEUMOCOCCAL [facility] Test 16:46:16 VACCINE (4 - PPSV23 if available, else PCV20) [code = 65+ PNEUMOCOCCAL VACCINE (4 - PPSV23 if available, else PCV20)] Future Scheduled 2022-12-13 INFLUENZA VACCINE [facility] Test 16:46:16 [code = INFLUENZA VACCINE] Future Scheduled 2022-12-13 Screening for [facility] Test 16:46:16 malignant neoplasm of colon (procedure) [code = 940041089] Future Scheduled 2022-12-13 Screening for [facility] Test 16:46:16 malignant neoplasm of colon (procedure) [code = 340402071] Future Scheduled 2022-12-13 Screening for [facility] Test 16:46:16 malignant neoplasm of colon (procedure) [code = 070249768] Future Scheduled 2022-12-13 SHINGLES VACCINES (1 Met [facility] Test 16:46:16 of 2) [code = SHINGLES VACCINES (1 of 2)] Future Scheduled 2022-12-13 BREAST CANCER [facility] Test 16:46:16 SCREENING [code = BREAST CANCER SCREENING] Future Scheduled 2022-12-13 Screening for [facility] Test 16:46:16 malignant neoplasm of colon (procedure) [code = 902161806] Future Scheduled 2022-12-13 Screening for [facility] Test 16:46:16 malignant neoplasm of colon (procedure) [code = 268596914] Future Scheduled 2022-12-13 HEPATITIS B VACCINES Met [facility] Test 16:46:16 (1 of 3 - Risk 3-dose series) [code = HEPATITIS B VACCINES (1 of 3 - Risk 3-dose series)] Future Scheduled 2022-12-13 COVID-19 VACCINE (3 - Me [facility] Test 16:46:16 Pfizer series) [code = COVID-19 VACCINE (3 - Pfizer series)] Future Scheduled 2022-12-13 65+ PNEUMOCOCCAL [facility] Test 16:46:16 VACCINE (4 - PPSV23 if available, else PCV20) [code = 65+ PNEUMOCOCCAL VACCINE (4 - PPSV23 if available, else PCV20)] Future Scheduled 2022-12-13 INFLUENZA VACCINE [facility] Test 16:46:16 [code = INFLUENZA VACCINE] Future Scheduled 2022-11-11 Screening for [facility] Test 09:27:47 malignant neoplasm of colon (procedure) [code = 604136513] Future Scheduled 2022-11-11 Screening for [facility] Test 09:27:47 malignant neoplasm of colon (procedure) [code = 720289771] Future Scheduled 2022-11-11 Screening for [facility] Test 09:27:47 malignant neoplasm of colon (procedure) [code = 536274525] Future Scheduled 2022-11-11 SHINGLES VACCINES (1 Met [facility] Test 09:27:47 of 2) [code = SHINGLES VACCINES (1 of 2)] Future Scheduled 2022-11-11 BREAST CANCER [facility] Test 09:27:47 SCREENING [code = BREAST CANCER SCREENING] Future Scheduled 2022-11-11 Screening for [facility] Test 09:27:47 malignant neoplasm of colon (procedure) [code = 122483538] Future Scheduled 2022-11-11 Screening for [facility] Test 09:27:47 malignant neoplasm of colon (procedure) [code = 721251935] Future Scheduled 2022-11-11 HEPATITIS B VACCINES Met [facility] Test 09:27:47 (1 of 3 - Risk 3-dose series) [code = HEPATITIS B VACCINES (1 of 3 - Risk 3-dose series)] Future Scheduled 2022-11-11 COVID-19 VACCINE (3 - Me [facility] Test 09:27:47 Pfizer series) [code = COVID-19 VACCINE (3 - Pfizer series)] Future Scheduled 2022-11-11 65+ PNEUMOCOCCAL [facility] Test 09:27:47 VACCINE (4 - PPSV23 if available, else PCV20) [code = 65+ PNEUMOCOCCAL VACCINE (4 - PPSV23 if available, else PCV20)] Future Scheduled 2022-11-11 INFLUENZA VACCINE [facility] Test 09:27:47 [code = INFLUENZA VACCINE] Future Scheduled 2022-11-11 Screening for [facility] Test 09:27:47 malignant neoplasm of colon (procedure) [code = 262378831] Future Scheduled 2022-11-11 Screening for [facility] Test 09:27:47 malignant neoplasm of colon (procedure) [code = 590320605] Future Scheduled 2022-11-11 Screening for [facility] Test 09:27:47 malignant neoplasm of colon (procedure) [code = 962460913] Future Scheduled 2022-11-11 SHINGLES VACCINES (1 Met [facility] Test 09:27:47 of 2) [code = SHINGLES VACCINES (1 of 2)] Future Scheduled 2022-11-11 BREAST CANCER [facility] Test 09:27:47 SCREENING [code = BREAST CANCER SCREENING] Future Scheduled 2022-11-11 Screening for [facility] Test 09:27:47 malignant neoplasm of colon (procedure) [code = 342454249] Future Scheduled 2022-11-11 Screening for [facility] Test 09:27:47 malignant neoplasm of colon (procedure) [code = 177545292] Future Scheduled 2022-11-11 HEPATITIS B VACCINES Met [facility] Test 09:27:47 (1 of 3 - Risk 3-dose series) [code = HEPATITIS B VACCINES (1 of 3 - Risk 3-dose series)] Future Scheduled 2022-11-11 COVID-19 VACCINE (3 - [facility] Test 09:27:47 Pfizer series) [code = COVID-19 VACCINE (3 - Pfizer series)] Future Scheduled 2022-11-11 65+ PNEUMOCOCCAL [facility] Test 09:27:47 VACCINE (4 - PPSV23 if available, else PCV20) [code = 65+ PNEUMOCOCCAL VACCINE (4 - PPSV23 if available, else PCV20)] Future Scheduled 2022-11-11 INFLUENZA VACCINE [facility] Test 09:27:47 [code = INFLUENZA VACCINE] Future Scheduled 2022-11-11 [facility] Test 09:27:47 malignant neoplasm of colon (procedure) [code = 831615265] Future Scheduled 2022-11-11 Screening for [facility] Test 09:27:47 malignant neoplasm of colon (procedure) [code = 862588221] Future Scheduled 2022-11-11 Screening for [facility] Test 09:27:47 malignant neoplasm of colon (procedure) [code = 708825210] Future Scheduled 2022-11-11 SHINGLES VACCINES (1 Met [facility] Test 09:27:47 of 2) [code = SHINGLES VACCINES (1 of 2)] Future Scheduled 2022-11-11 BREAST CANCER [facility] Test 09:27:47 SCREENING [code = BREAST CANCER SCREENING] Future Scheduled 2022-11-11 Screening for [facility] Test 09:27:47 malignant neoplasm of colon (procedure) [code = 084550843] Future Scheduled 2022-11-11 Screening for [facility] Test 09:27:47 malignant neoplasm of colon (procedure) [code = 153692991] Future Scheduled 2022-11-11 HEPATITIS B VACCINES Met [facility] Test 09:27:47 (1 of 3 - Risk 3-dose series) [code = HEPATITIS B VACCINES (1 of 3 - Risk 3-dose series)] Future Scheduled 2022-11-11 COVID-19 VACCINE (3 - Me [facility] [facility] Hospital Test 09:27:47 Pfizer series) [code = COVID-19 VACCINE (3 - Pfizer series)] Future Scheduled 2022-11-11 65+ PNEUMOCOCCAL [facility] Test 09:27:47 VACCINE (4 - PPSV23 if available, else PCV20) [code = 65+ PNEUMOCOCCAL VACCINE (4 - PPSV23 if available, else PCV20)] Future Scheduled 2022-11-11 INFLUENZA VACCINE [facility] Test 09:27:47 [code = INFLUENZA VACCINE] Future Scheduled 2022-10-27 Screening for [facility] Test 22:40:19 malignant neoplasm of colon (procedure) [code = [id number]] Future Scheduled 2022-10-27 Screening for [facility] Test 22:40:19 malignant neoplasm of colon (procedure) [code = [id number]] Future Scheduled 2022-10-27 Screening for [facility] Test 22:40:19 malignant neoplasm of colon (procedure) [code = [id number]] Future Scheduled 2022-10-27 SHINGLES VACCINES (1 Met [facility] Test 22:40:19 of 2) [code = SHINGLES VACCINES (1 of 2)] Future Scheduled 2022-10-27 BREAST CANCER [facility] Test 22:40:19 SCREENING [code = BREAST CANCER SCREENING] Future Scheduled 2022-10-27 Screening for [facility] Test 22:40:19 malignant neoplasm of colon (procedure) [code = [id number]] Future Scheduled 2022-10-27 Screening for [facility] Test 22:40:19 malignant neoplasm of colon (procedure) [code = [id number]] Future Scheduled 2022-10-27 HEPATITIS B VACCINES Met [facility] Test 22:40:19 (1 of 3 - Risk 3-dose series) [code = HEPATITIS B VACCINES (1 of 3 - Risk 3-dose series)] Future Scheduled 2022-10-27 COVID-19 VACCINE (3 - [facility] Test 22:40:19 Pfizer series) [code = COVID-19 VACCINE (3 - Pfizer series)] Future Scheduled 2022-10-27 65+ PNEUMOCOCCAL [facility] Test 22:40:19 VACCINE (4 - PPSV23 if available, else PCV20) [code = 65+ PNEUMOCOCCAL VACCINE (4 - PPSV23 if available, else PCV20)] Future Scheduled 2022-10-27 INFLUENZA VACCINE [facility] Test 22:40:19 [code = INFLUENZA VACCINE] Future Scheduled 2022-10-27 Screening for [facility] Test 22:40:19 malignant neoplasm of colon (procedure) [code = [id number]] Future Scheduled 2022-10-27 Screening for [facility] Test 22:40:19 malignant neoplasm of colon (procedure) [code = [id number]] Future Scheduled 2022-10-27 Screening for [facility] Test 22:40:19 malignant neoplasm of colon (procedure) [code = [id number]] Future Scheduled 2022-10-27 SHINGLES VACCINES (1 Met [facility] Test 22:40:19 of 2) [code = SHINGLES VACCINES (1 of 2)] Future Scheduled 2022-10-27 BREAST CANCER [facility] Test 22:40:19 SCREENING [code = BREAST CANCER SCREENING] Future Scheduled 2022-10-27 Screening for [facility] Test 22:40:19 malignant neoplasm of colon (procedure) [code = [id number]] Future Scheduled 2022-10-27 Screening for [facility] Test 22:40:19 malignant neoplasm of colon (procedure) [code = [id number]] Future Scheduled 2022-10-27 HEPATITIS B VACCINES Met [facility] Test 22:40:19 (1 of 3 - Risk 3-dose series) [code = HEPATITIS B VACCINES (1 of 3 - Risk 3-dose series)] Future Scheduled 2022-10-27 COVID-19 VACCINE (3 - [facility] Test 22:40:19 Pfizer series) [code = COVID-19 VACCINE (3 - Pfizer series)] Future Scheduled 2022-10-27 65+ [facility] Test 22:40:19 VACCINE (4 - PPSV23 if available, else PCV20) [code = 65+ PNEUMOCOCCAL VACCINE (4 - PPSV23 if available, else PCV20)] Future Scheduled 2022-10-27 INFLUENZA VACCINE [facility] Test 22:40:19 [code = INFLUENZA VACCINE] Future Scheduled 2022-09-10 SHINGLES VACCINES (1 Met [facility] Test 15:06:53 of 2) [code = SHINGLES VACCINES (1 of 2)] Future Scheduled 2022-09-10 BREAST CANCER [facility] Test 15:06:53 SCREENING [code = BREAST CANCER SCREENING] Future Scheduled 2022-09-10 COLONOSCOPY SCREENING [facility] Test 15:06:53 [code = COLONOSCOPY SCREENING] Future Scheduled 2022-09-10 HEPATITIS B VACCINES Met [facility] Test 15:06:53 (1 of 3 - Risk 3-dose series) [code = HEPATITIS B VACCINES (1 of 3 - Risk 3-dose series)] Future Scheduled 2022-09-10 COVID-19 VACCINE (3 - [facility] Test 15:06:53 Booster for Pfizer series) [code = COVID-19 VACCINE (3 - Booster for Pfizer series)] Future Scheduled 2022-09-10 65+ [facility]CCAL [facility] Test 15:06:53 VACCINE (4 - PPSV23 if available, else PCV20) [code = 65+ PNEUMOCOCCAL VACCINE (4 - PPSV23 if available, else PCV20)] Future Scheduled 2022-09-10 INFLUENZA VACCINE Method [facility] Test 15:06:53 [code = INFLUENZA VACCINE] Future Scheduled 2022-09-10 SHINGLES VACCINES (1 Met [facility] Test 15:06:53 of 2) [code = SHINGLES VACCINES (1 of 2)] Future Scheduled 2022-09-10 BREAST CANCER [facility] Test 15:06:53 SCREENING [code = BREAST CANCER SCREENING] Future Scheduled 2022-09-10 COLONOSCOPY SCREENING [facility] Test 15:06:53 [code = COLONOSCOPY SCREENING] Future Scheduled 2022-09-10 HEPATITIS B VACCINES Met [facility] Test 15:06:53 (1 of 3 - Risk 3-dose series) [code = HEPATITIS B VACCINES (1 of 3 - Risk 3-dose series)] Future Scheduled 2022-09-10 COVID-19 VACCINE (3 - [facility] Test 15:06:53 Booster for Pfizer series) [code = COVID-19 VACCINE (3 - Booster for Pfizer series)] Future Scheduled 2022-09-10 65+ [facility]OCOCCAL [facility] Test 15:06:53 VACCINE (4 - PPSV23 if available, else PCV20) [code = 65+ PNEUMOCOCCAL VACCINE (4 - PPSV23 if available, else PCV20)] Future Scheduled 2022-09-10 INFLUENZA VACCINE [facility] Test 15:06:53 [code = INFLUENZA VACCINE] Future Scheduled 2022-09-10 SHINGLES VACCINES (1 Met [facility] Test 15:06:53 of 2) [code = SHINGLES VACCINES (1 of 2)] Future Scheduled 2022-09-10 BREAST CANCER [facility] Test 15:06:53 SCREENING [code = BREAST CANCER SCREENING] Future Scheduled 2022-09-10 COLONOSCOPY SCREENING [facility] Test 15:06:53 [code = COLONOSCOPY SCREENING] Future Scheduled 2022-09-10 HEPATITIS B VACCINES Met [facility] Test 15:06:53 (1 of 3 - Risk 3-dose series) [code = HEPATITIS B VACCINES (1 of 3 - Risk 3-dose series)] Future Scheduled 2022-09-10 COVID-19 VACCINE (3 - Me [facility] Test 15:06:53 Booster for Pfizer series) [code = COVID-19 VACCINE (3 - Booster for Pfizer series)] Future Scheduled 2022-09-10 65+ PNEUMOCOCCAL [facility] Test 15:06:53 VACCINE (4 - PPSV23 if available, else PCV20) [code = 65+ PNEUMOCOCCAL VACCINE (4 - PPSV23 if available, else PCV20)] Future Scheduled 2022-09-10 INFLUENZA VACCINE Method [facility] Test 15:06:53 [code = INFLUENZA VACCINE] Future Scheduled 2022-09-10 SHINGLES VACCINES (1 Met [facility] Test 15:06:53 of 2) [code = SHINGLES VACCINES (1 of 2)] Future Scheduled 2022-09-10 BREAST CANCER [facility] Test 15:06:53 SCREENING [code = BREAST CANCER SCREENING] Future Scheduled 2022-09-10 COLONOSCOPY SCREENING [facility] Test 15:06:53 [code = COLONOSCOPY SCREENING] Future Scheduled 2022-09-10 HEPATITIS B VACCINES Met [facility] Test 15:06:53 (1 of 3 - Risk 3-dose series) [code = HEPATITIS B VACCINES (1 of 3 - Risk 3-dose series)] Future Scheduled 2022-09-10 COVID-19 VACCINE (3 - [facility] Test 15:06:53 Booster for Pfizer series) [code = COVID-19 VACCINE (3 - Booster for Pfizer series)] Future Scheduled 2022-09-10 65+ [facility]OCOCCAL [facility] Test 15:06:53 VACCINE (4 - PPSV23 if available, else PCV20) [code = 65+ PNEUMOCOCCAL VACCINE (4 - PPSV23 if available, else PCV20)] Future Scheduled 2022-09-10 INFLUENZA VACCINE Method [facility] Test 15:06:53 [code = INFLUENZA VACCINE] Future Scheduled 2022-09-10 SHINGLES VACCINES (1 Met [facility] Test 15:06:53 of 2) [code = SHINGLES VACCINES (1 of 2)] Future Scheduled 2022-09-10 BREAST CANCER [facility] Test 15:06:53 SCREENING [code = BREAST CANCER SCREENING] Future Scheduled 2022-09-10 COLONOSCOPY SCREENING [facility] Test 15:06:53 [code = COLONOSCOPY SCREENING] Future Scheduled 2022-09-10 HEPATITIS B VACCINES Met [facility] Test 15:06:53 (1 of 3 - Risk 3-dose series) [code = HEPATITIS B VACCINES (1 of 3 - Risk 3-dose series)] Future Scheduled 2022-09-10 COVID-19 VACCINE (3 - Me [facility] Test 15:06:53 Booster for Pfizer series) [code = COVID-19 VACCINE (3 - Booster for Pfizer series)] Future Scheduled 2022-09-10 65+ P[facility]UMOCOCCAL [facility] Test 15:06:53 VACCINE (4 - PPSV23 if available, else PCV20) [code = 65+ PNEUMOCOCCAL VACCINE (4 - PPSV23 if available, else PCV20)] Future Scheduled 2022-09-10 INFLUENZA VACCINE Method [facility] Test 15:06:53 [code = INFLUENZA VACCINE] Future Scheduled 2022-09-10 SHINGLES VACCINES (1 Met [facility] Test 15:06:53 of 2) [code = SHINGLES VACCINES (1 of 2)] Future Scheduled 2022-09-10 BREAST CANCER [facility] Test 15:06:53 SCREENING [code = BREAST CANCER SCREENING] Future Scheduled 2022-09-10 COLONOSCOPY SCREENING [facility] Test 15:06:53 [code = COLONOSCOPY SCREENING] Future Scheduled 2022-09-10 HEPATITIS B VACCINES Met [facility] Test 15:06:53 (1 of 3 - Risk 3-dose series) [code = HEPATITIS B VACCINES (1 of 3 - Risk 3-dose series)] Future Scheduled 2022-09-10 COVID-19 VACCINE (3 - Me [facility] Test 15:06:53 Booster for Pfizer series) [code = COVID-19 VACCINE (3 - Booster for Pfizer series)] Future Scheduled 2022-09-10 65+ P[facility]UMOCOCCAL [facility] Test 15:06:53 VACCINE (4 - PPSV23 if available, else PCV20) [code = 65+ PNEUMOCOCCAL VACCINE (4 - PPSV23 if available, else PCV20)] Future Scheduled 2022-09-10 INFLUENZA VACCINE Method [facility] Test 15:06:53 [code = INFLUENZA VACCINE] Future Scheduled 2022-09-10 SHINGLES VACCINES (1 Met [facility] Test 15:06:53 of 2) [code = SHINGLES VACCINES (1 of 2)] Future Scheduled 2022-09-10 BREAST CANCER [facility] Test 15:06:53 SCREENING [code = BREAST CANCER SCREENING] Future Scheduled 2022-09-10 COLONOSCOPY SCREENING [facility] Test 15:06:53 [code = COLONOSCOPY SCREENING] Future Scheduled 2022-09-10 HEPATITIS B VACCINES Met [facility] Test 15:06:53 (1 of 3 - Risk 3-dose series) [code = HEPATITIS B VACCINES (1 of 3 - Risk 3-dose series)] Future Scheduled 2022-09-10 COVID-19 VACCINE (3 - Me [facility] Test 15:06:53 Booster for Pfizer series) [code = COVID-19 VACCINE (3 - Booster for Pfizer series)] Future Scheduled 2022-09-10 65+ PNEUMOCOCCAL [facility] Test 15:06:53 VACCINE (4 - PPSV23 if available, else PCV20) [code = 65+ PNEUMOCOCCAL VACCINE (4 - PPSV23 if available, else PCV20)] Future Scheduled 2022-09-10 INFLUENZA VACCINE [facility] Test 15:06:53 [code = INFLUENZA VACCINE] Future Scheduled 2022-09-10 SHINGLES VACCINES (1 Met [facility] Test 15:06:53 of 2) [code = SHINGLES VACCINES (1 of 2)] Future Scheduled 2022-09-10 BREAST CANCER [facility] Test 15:06:53 SCREENING [code = BREAST CANCER SCREENING] Future Scheduled 2022-09-10 COLONOSCOPY SCREENING [facility] Test 15:06:53 [code = COLONOSCOPY SCREENING] Future Scheduled 2022-09-10 HEPATITIS B VACCINES Met [facility] Test 15:06:53 (1 of 3 - Risk 3-dose series) [code = HEPATITIS B VACCINES (1 of 3 - Risk 3-dose series)] Future Scheduled 2022-09-10 COVID-19 VACCINE (3 - [facility] Test 15:06:53 Booster for Pfizer series) [code = COVID-19 VACCINE (3 - Booster for Pfizer series)] Future Scheduled 2022-09-10 65[facility] VACCINE (4 - PPSV23 if available, else PCV20) [code = 65+ PNEUMOCOCCAL VACCINE (4 - PPSV23 if available, else PCV20)] Future Scheduled 2022-09-10 INFLUENZA VACCINE [facility] Test 15:06:53 [code = INFLUENZA VACCINE] Future Scheduled 2022-08-26 SHINGLES VACCINES (1 Met [facility] Test 14:43:48 of 2) [code = SHINGLES VACCINES (1 of 2)] Future Scheduled 2022-08-26 BREAST CANCER [facility] Test 14:43:48 SCREENING [code = BREAST CANCER SCREENING] Future Scheduled 2022-08-26 COLONOSCOPY SCREENING [facility] Test 14:43:48 [code = COLONOSCOPY SCREENING] Future Scheduled 2022-08-26 HEPATITIS B VACCINES Met [facility] Test 14:43:48 (1 of 3 - Risk 3-dose series) [code = HEPATITIS B VACCINES (1 of 3 - Risk 3-dose series)] Future Scheduled 2022-08-26 COVID-19 VACCINE (3 - [facility] Test 14:43:48 Booster for Pfizer series) [code = COVID-19 VACCINE (3 - Booster for Pfizer series)] Future Scheduled 2022-08-26 65[facility] 14:43:[facility] VACCINE (4 - PPSV23 if available, else PCV20) [code = 65+ PNEUMOCOCCAL VACCINE (4 - PPSV23 if available, else PCV20)] Future Scheduled 2022-08-26 INFLUENZA VACCINE [facility] Test 14:43:48 [code = INFLUENZA VACCINE] Future Scheduled 2022-08-07 SHINGLES VACCINES (1 Met [facility] Test 23:30:11 of 2) [code = SHINGLES VACCINES (1 of 2)] Future Scheduled 2022-08-07 BREAST CANCER [facility] Test 23:30:11 SCREENING [code = BREAST CANCER SCREENING] Future Scheduled 2022-08-07 COLONOSCOPY SCREENING [facility] Test 23:30:11 [code = COLONOSCOPY SCREENING] Future Scheduled 2022-08-07 HEPATITIS B VACCINES Met [facility] Test 23:30:11 (1 of 3 - Risk 3-dose series) [code = HEPATITIS B VACCINES (1 of 3 - Risk 3-dose series)] Future Scheduled 2022-08-07 COVID-19 VACCINE (3 - [facility] Test 23:30:11 Booster for Pfizer series) [code = COVID-19 VACCINE (3 - Booster for Pfizer series)] Future Scheduled 2022-08-07 65[facility] 23:30:11 VACCINE (4 - PPSV23 if available, else PCV20) [code = 65+ PNEUMOCOCCAL VACCINE (4 - PPSV23 if available, else PCV20)] Future Scheduled 2022-08-07 INFLUENZA VACCINE Method [facility] Test 23:30:11 [code = INFLUENZA VACCINE] Future Scheduled 2022-08-07 SHINGLES VACCINES (1 Met [facility] Test 23:30:11 of 2) [code = SHINGLES VACCINES (1 of 2)] Future Scheduled 2022-08-07 BREAST CANCER [facility] Test 23:30:11 SCREENING [code = BREAST CANCER SCREENING] Future Scheduled 2022-08-07 COLONOSCOPY SCREENING [facility] Test 23:30:11 [code = COLONOSCOPY SCREENING] Future Scheduled 2022-08-07 HEPATITIS B VACCINES Met [facility] Test 23:30:11 (1 of 3 - Risk 3-dose series) [code = HEPATITIS B VACCINES (1 of 3 - Risk 3-dose series)] Future Scheduled 2022-08-07 COVID-19 VACCINE (3 - [facility] Test 23:30:11 Booster for Pfizer series) [code = COVID-19 VACCINE (3 - Booster for Pfizer series)] Future Scheduled 2022-08-07 65+ PNEUMOCOCCAL [facility] Test 23:30:11 VACCINE (4 - PPSV23 if available, else PCV20) [code = 65+ PNEUMOCOCCAL VACCINE (4 - PPSV23 if available, else PCV20)] Future Scheduled 2022-08-07 INFLUENZA VACCINE Method [facility] Test 23:30:11 [code = INFLUENZA VACCINE] Future Scheduled 2022-08-06 SHINGLES VACCINES (1 Met [facility] Test 15:48:02 of 2) [code = SHINGLES VACCINES (1 of 2)] Future Scheduled 2022-08-06 BREAST CANCER [facility] Test 15:48:02 SCREENING [code = BREAST CANCER SCREENING] Future Scheduled 2022-08-06 COLONOSCOPY SCREENING [facility] Test 15:48:02 [code = COLONOSCOPY SCREENING] Future Scheduled 2022-08-06 HEPATITIS B VACCINES Met [facility] Test 15:48:02 (1 of 3 - Risk 3-dose series) [code = HEPATITIS B VACCINES (1 of 3 - Risk 3-dose series)] Future Scheduled 2022-08-06 COVID-19 VACCINE (3 - Me [facility] Test 15:48:02 Booster for Pfizer series) [code = COVID-19 VACCINE (3 - Booster for Pfizer series)] Future Scheduled 2022-08-06 65[facility]:48:02 VACCINE (4 - PPSV23 if available, else PCV20) [code = 65+ PNEUMOCOCCAL VACCINE (4 - PPSV23 if available, else PCV20)] Future Scheduled 2022-08-06 INFLUENZA VACCINE [facility] Test 15:48:02 [code = INFLUENZA VACCINE] Future Scheduled 2022-06-11 SHINGLES VACCINES (1 Met [facility] Test 16:10:12 of 2) [code = SHINGLES VACCINES (1 of 2)] Future Scheduled 2022-06-11 BREAST CANCER [facility] Test 16:10:12 SCREENING [code = BREAST CANCER SCREENING] Future Scheduled 2022-06-11 COLONOSCOPY SCREENING [facility] Test 16:10:12 [code = COLONOSCOPY SCREENING] Future Scheduled 2022-06-11 HEPATITIS B VACCINES Met [facility] Test 16:10:12 (1 of 3 - Risk 3-dose series) [code = HEPATITIS B VACCINES (1 of 3 - Risk 3-dose series)] Future Scheduled 2022-06-11 COVID-19 VACCINE (3 - [facility] Test 16:10:12 Booster for Pfizer series) [code = COVID-19 VACCINE (3 - Booster for Pfizer series)] Future Scheduled 2022-06-11 65+ [facility]OCCAL [facility] Test 16:10:12 VACCINE (4 - PPSV23 if available, else PCV20) [code = 65+ PNEUMOCOCCAL VACCINE (4 - PPSV23 if available, else PCV20)] Future Scheduled 2022-06-11 INFLUENZA VACCINE [facility] Test 16:10:12 [code = INFLUENZA VACCINE] Future Scheduled 2022-06-11 SHINGLES VACCINES (1 Met [facility] Test 16:10:12 of 2) [code = SHINGLES VACCINES (1 of 2)] Future Scheduled 2022-06-11 BREAST CANCER [facility] Test 16:10:12 SCREENING [code = BREAST CANCER SCREENING] Future Scheduled 2022-06-11 COLONOSCOPY SCREENING [facility] Test 16:10:12 [code = COLONOSCOPY SCREENING] Future Scheduled 2022-06-11 HEPATITIS B VACCINES Met [facility] Test 16:10:12 (1 of 3 - Risk 3-dose series) [code = HEPATITIS B VACCINES (1 of 3 - Risk 3-dose series)] Future Scheduled 2022-06-11 COVID-19 VACCINE (3 - Me [facility] Test 16:10:12 Booster for Pfizer series) [code = COVID-19 VACCINE (3 - Booster for Pfizer series)] Future Scheduled 2022-06-11 65+ P[facility]UMOCOCCAL [facility] Test 16:10:12 VACCINE (4 - PPSV23 if available, else PCV20) [code = 65+ PNEUMOCOCCAL VACCINE (4 - PPSV23 if available, else PCV20)] Future Scheduled 2022-06-11 INFLUENZA VACCINE [facility] Test 16:10:12 [code = INFLUENZA VACCINE] Future Scheduled 2022-06-11 SHINGLES VACCINES (1 Met [facility] Test 16:10:12 of 2) [code = SHINGLES VACCINES (1 of 2)] Future Scheduled 2022-06-11 BREAST CANCER [facility] Test 16:10:12 SCREENING [code = BREAST CANCER SCREENING] Future Scheduled 2022-06-11 COLONOSCOPY SCREENING [facility] Test 16:10:12 [code = COLONOSCOPY SCREENING] Future Scheduled 2022-06-11 HEPATITIS B VACCINES Met [facility] Test 16:10:12 (1 of 3 - Risk 3-dose series) [code = HEPATITIS B VACCINES (1 of 3 - Risk 3-dose series)] Future Scheduled 2022-06-11 COVID-19 VACCINE (3 - [facility] Test 16:10:12 Booster for Pfizer series) [code = COVID-19 VACCINE (3 - Booster for Pfizer series)] Future Scheduled 2022-06-11 65+ P[facility]UMOCOCCAL [facility] Test 16:10:12 VACCINE (4 - PPSV23 if available, else PCV20) [code = 65+ PNEUMOCOCCAL VACCINE (4 - PPSV23 if available, else PCV20)] Future Scheduled 2022-06-11 INFLUENZA VACCINE [facility] Test 16:10:12 [code = INFLUENZA VACCINE] Future Scheduled 2022-06-11 SHINGLES VACCINES (1 Met [facility] Test 16:10:12 of 2) [code = SHINGLES VACCINES (1 of 2)] Future Scheduled 2022-06-11 BREAST CANCER [facility] Test 16:10:12 SCREENING [code = BREAST CANCER SCREENING] Future Scheduled 2022-06-11 COLONOSCOPY SCREENING [facility] Test 16:10:12 [code = COLONOSCOPY SCREENING] Future Scheduled 2022-06-11 HEPATITIS B VACCINES Met [facility] Test 16:10:12 (1 of 3 - Risk 3-dose series) [code = HEPATITIS B VACCINES (1 of 3 - Risk 3-dose series)] Future Scheduled 2022-06-11 COVID-19 VACCINE (3 - Me [facility] Test 16:10:12 Booster for Pfizer series) [code = COVID-19 VACCINE (3 - Booster for Pfizer series)] Future Scheduled 2022-06-11 65+ [facility]UMOCOCCAL [facility] Test 16:10:12 VACCINE (4 - PPSV23 if available, else PCV20) [code = 65+ PNEUMOCOCCAL VACCINE (4 - PPSV23 if available, else PCV20)] Future Scheduled 2022-06-11 INFLUENZA VACCINE [facility] Test 16:10:12 [code = INFLUENZA VACCINE] Future Scheduled 2022-06-11 SHINGLES VACCINES (1 Met [facility] Test 16:10:12 of 2) [code = SHINGLES VACCINES (1 of 2)] Future Scheduled 2022-06-11 BREAST CANCER [facility] Test 16:10:12 SCREENING [code = BREAST CANCER SCREENING] Future Scheduled 2022-06-11 COLONOSCOPY SCREENING [facility] Test 16:10:12 [code = COLONOSCOPY SCREENING] Future Scheduled 2022-06-11 HEPATITIS B VACCINES Met [facility] Test 16:10:12 (1 of 3 - Risk 3-dose series) [code = HEPATITIS B VACCINES (1 of 3 - Risk 3-dose series)] Future Scheduled 2022-06-11 COVID-19 VACCINE (3 - [facility] Test 16:10:12 Booster for Pfizer [...] 2022-06-11 SHINGLES VACCINES (1 Met [facility] Test 16:10:12 of 2) [code = SHINGLES VACCINES (1 of 2)] Future Scheduled 2022-06-11 BREAST CANCER [facility] Test 16:10:12 SCREENING [code = BREAST CANCER SCREENING] Future Scheduled 2022-06-11 COLONOSCOPY SCREENING [facility] Test 16:10:12 [code = COLONOSCOPY SCREENING] Future Scheduled 2022-06-11 HEPATITIS B VACCINES Met [facility] Test 16:10:12 (1 of 3 - Risk 3-dose series) [code = HEPATITIS B VACCINES (1 of 3 - Risk 3-dose series)] Future Scheduled 2022-06-11 COVID-19 VACCINE (3 - [facility] Test 16:10:12 Booster for Pfizer [...] 2022-06-11 SHINGLES VACCINES (1 Met [facility] Test 16:10:12 of 2) [code = SHINGLES VACCINES (1 of 2)] Future Scheduled 2022-06-11 BREAST CANCER [facility] Test 16:10:12 SCREENING [code = BREAST CANCER SCREENING] Future Scheduled 2022-06-11 COLONOSCOPY SCREENING [facility] Test 16:10:12 [code = COLONOSCOPY SCREENING] Future Scheduled 2022-06-11 HEPATITIS B VACCINES Met [facility] Test 16:10:12 (1 of 3 - Risk 3-dose series) [code = HEPATITIS B VACCINES (1 of 3 - Risk 3-dose series)] Future Scheduled 2022-06-11 COVID-19 VACCINE (3 - [facility] Test 16:10:12 Booster for Pfizer [...] 2022-06-11 SHINGLES VACCINES (1 Met [facility] Test 16:10:12 of 2) [code = SHINGLES VACCINES (1 of 2)] Future Scheduled 2022-06-11 BREAST CANCER [facility] Test 16:10:12 SCREENING [code = BREAST CANCER SCREENING] Future Scheduled 2022-06-11 COLONOSCOPY SCREENING [facility] Test 16:10:12 [code = COLONOSCOPY SCREENING] Future Scheduled 2022-06-11 HEPATITIS B VACCINES Met [facility] Test 16:10:12 (1 of 3 - Risk 3-dose series) [code = HEPATITIS B VACCINES (1 of 3 - Risk 3-dose series)] Future Scheduled 2022-06-11 COVID-19 VACCINE (3 - [facility] Test 16:10:12 Booster for Pfizer [...] 2022-06-11 SHINGLES VACCINES (1 Met [facility] Test 16:10:12 of 2) [code = SHINGLES VACCINES (1 of 2)] Future Scheduled 2022-06-11 BREAST CANCER [facility] Test 16:10:12 SCREENING [code = BREAST CANCER SCREENING] Future Scheduled 2022-06-11 COLONOSCOPY SCREENING [facility] Test 16:10:12 [code = COLONOSCOPY SCREENING] Future Scheduled 2022-06-11 HEPATITIS B VACCINES Met [facility] Test 16:10:12 (1 of 3 - Risk 3-dose series) [code = HEPATITIS B VACCINES (1 of 3 - Risk 3-dose series)] Future Scheduled 2022-06-11 COVID-19 VACCINE (3 - [facility] Test 16:10:12 Booster for Pfizer [...] 2022-05-10 SHINGLES VACCINES (1 Met [facility] Test 10:21:35 of 2) [code = SHINGLES VACCINES (1 of 2)] Future Scheduled 2022-05-10 BREAST CANCER [facility] Test 10:21:35 SCREENING [code = BREAST CANCER SCREENING] Future Scheduled 2022-05-10 COLONOSCOPY SCREENING [facility] Test 10:21:35 [code = COLONOSCOPY SCREENING] Future Scheduled 2022-05-10 HEPATITIS B VACCINES Met [facility] Test 10:21:35 (1 of 3 - Risk 3-dose series) [code = HEPATITIS B VACCINES (1 of 3 - Risk 3-dose series)] Future Scheduled 2022-05-10 COVID-19 VACCINE (3 - Me [facility] Test 10:21:35 Booster for Pfizer series) [code [...] Future Scheduled 2022-05-10 SHINGLES VACCINES (1 Met [facility] Test 10:21:35 of 2) [code = SHINGLES VACCINES (1 of 2)] Future Scheduled 2022-05-10 BREAST CANCER [facility] Test 10:21:35 SCREENING [code = BREAST CANCER SCREENING] Future Scheduled 2022-05-10 COLONOSCOPY SCREENING [facility] Test 10:21:35 [code = COLONOSCOPY SCREENING] Future Scheduled 2022-05-10 HEPATITIS B VACCINES Met [facility] Test 10:21:35 (1 of 3 - Risk 3-dose series) [code = HEPATITIS B VACCINES (1 of 3 - Risk 3-dose series)] Future Scheduled 2022-05-10 COVID-19 VACCINE (3 - [facility] Test 10:21:35 Booster for Pfizer series) [code = COVID-19 VACCINE (3 - Booster for Pfizer series)] Future Scheduled 2022-05-10 65+ PNEUMOCOCCAL [facility] Test 10:21:35 VACCINE (4 - PPSV23 if available, else PCV20) [code = 65+ PNEUMOCOCCAL VACCINE (4 - PPSV23 if available, else PCV20)] Future Scheduled 2022-05-10 INFLUENZA VACCINE Method [facility] Test 10:21:35 [code = INFLUENZA VACCINE] Future Scheduled 2022-05-06 SHINGLES VACCINES (1 Met [facility] Test 14:03:13 of 2) [code = SHINGLES VACCINES (1 of 2)] Future Scheduled 2022-05-06 BREAST CANCER [facility] Test 14:03:13 SCREENING [code = BREAST CANCER SCREENING] Future Scheduled 2022-05-06 COLONOSCOPY SCREENING [facility] Test 14:03:13 [code = COLONOSCOPY SCREENING] Future Scheduled 2022-05-06 HEPATITIS B VACCINES Met [facility] Test 14:03:13 (1 of 3 - Risk 3-dose series) [code = HEPATITIS B VACCINES (1 of 3 - Risk 3-dose series)] Future Scheduled 2022-05-06 COVID-19 VACCINE (3 - [facility] Test 14:03:13 Booster for Pfizer series) [code = COVID-19 VACCINE (3 - Booster for Pfizer series)] Future Scheduled 2022-05-06 65+ PNEUMOCOCCAL [facility] Test 14:03:13 VACCINE (4 - PPSV23 if available, else PCV20) [code = 65+ PNEUMOCOCCAL VACCINE (4 - PPSV23 if available, else PCV20)] Future Scheduled 2022-05-06 INFLUENZA VACCINE Method [facility] Test 14:03:13 [code = INFLUENZA VACCINE] Future Scheduled 2022-04-30 SHINGLES VACCINES (1 Met [facility] Test 01:07:32 of 2) [code = SHINGLES VACCINES (1 of 2)] Future Scheduled 2022-04-30 BREAST CANCER [facility] Test 01:07:32 SCREENING [code = BREAST CANCER SCREENING] Future Scheduled 2022-04-30 COLONOSCOPY SCREENING [facility] Test 01:07:32 [code = COLONOSCOPY SCREENING] Future Scheduled 2022-04-30 HEPATITIS B VACCINES Met [facility] Test 01:07:32 (1 of 3 - Risk 3-dose series) [code = HEPATITIS B VACCINES (1 of 3 - Risk 3-dose series)] Future Scheduled 2022-04-30 COVID-19 VACCINE (3 - Me [facility] Test 01:07:32 Booster for Pfizer series) [code = COVID-19 VACCINE (3 - Booster for Pfizer series)] Future Scheduled 2022-04-30 65+ [facility] Test 01:07:32 VACCINE (4 - PPSV23 if available, else PCV20) [code = 65+ PNEUMOCOCCAL VACCINE (4 - PPSV23 if available, else PCV20)] Future Scheduled 2022-04-30 INFLUENZA VACCINE Method [facility] Test 01:07:32 [code = INFLUENZA VACCINE] Future Scheduled 2022-04-30 SHINGLES VACCINES (1 Met [facility] Test 01:07:32 of 2) [code = SHINGLES VACCINES (1 of 2)] Future Scheduled 2022-04-30 BREAST CANCER [facility] Test 01:07:32 SCREENING [code = BREAST CANCER SCREENING] Future Scheduled 2022-04-30 COLONOSCOPY SCREENING [facility] Test 01:07:32 [code = COLONOSCOPY SCREENING] Future Scheduled 2022-04-30 HEPATITIS B VACCINES Met [facility] Test 01:07:32 (1 of 3 - Risk 3-dose series) [code = HEPATITIS B VACCINES (1 of 3 - Risk 3-dose series)] Future Scheduled 2022-04-30 COVID-19 VACCINE (3 - [facility] Test 01:07:32 Booster for Pfizer series) [code = COVID-19 VACCINE (3 - Booster for Pfizer series)] Future Scheduled 2022-04-30 65+ [facility]AL [facility] Test 01:07:32 VACCINE (4 - PPSV23 if available, else PCV20) [code = 65+ PNEUMOCOCCAL VACCINE (4 - PPSV23 if available, else PCV20)] Future Scheduled 2022-04-30 INFLUENZA VACCINE Method [facility] Test 01:07:32 [code = INFLUENZA VACCINE] Future Scheduled 2022-04-30 SHINGLES VACCINES (1 Met [facility] Test 01:07:32 of 2) [code = SHINGLES VACCINES (1 of 2)] Future Scheduled 2022-04-30 BREAST CANCER [facility] Test 01:07:32 SCREENING [code = BREAST CANCER SCREENING] Future Scheduled 2022-04-30 COLONOSCOPY SCREENING [facility] Test 01:07:32 [code = COLONOSCOPY SCREENING] Future Scheduled 2022-04-30 HEPATITIS B VACCINES Met [facility] Test 01:07:32 (1 of 3 - Risk 3-dose series) [code = HEPATITIS B VACCINES (1 of 3 - Risk 3-dose series)] Future Scheduled 2022-04-30 COVID-19 VACCINE (3 - [facility] Test 01:07:32 Booster for Pfizer series) [code = COVID-19 VACCINE (3 - Booster for Pfizer series)] Future Scheduled 2022-04-30 65+ PNEUMOCOCCAL [facility] Test 01:07:32 VACCINE (4 - PPSV23 if available, else PCV20) [code = 65+ PNEUMOCOCCAL VACCINE (4 - PPSV23 if available, else PCV20)] Future Scheduled 2022-04-30 INFLUENZA VACCINE Method [facility] Test 01:07:32 [code = INFLUENZA VACCINE] Future Scheduled 2022-04-25 SHINGLES VACCINES (1 Met [facility] Test 01:45:02 of 2) [code = SHINGLES VACCINES (1 of 2)] Future Scheduled 2022-04-25 BREAST CANCER [facility] Test 01:45:02 SCREENING [code = BREAST CANCER SCREENING] Future Scheduled 2022-04-25 COLONOSCOPY SCREENING [facility] Test 01:45:02 [code = COLONOSCOPY SCREENING] Future Scheduled 2022-04-25 HEPATITIS B VACCINES Met [facility] Test 01:45:02 (1 of 3 - Risk 3-dose series) [code = HEPATITIS B VACCINES (1 of 3 - Risk 3-dose series)] Future Scheduled 2022-04-25 COVID-19 VACCINE (3 - [facility] Test 01:45:02 Booster for Pfizer series) [code = COVID-19 VACCINE (3 - Booster for Pfizer series)] Future Scheduled 2022-04-25 65+ [facility] 01:[facility]:02 VACCINE (4 - PPSV23 if available, else PCV20) [code = 65+ PNEUMOCOCCAL VACCINE (4 - PPSV23 if available, else PCV20)] Future Scheduled 2022-04-25 INFLUENZA VACCINE Method [facility] Test 01:45:02 [code = INFLUENZA VACCINE] Future Scheduled 2022-03-25 SHINGLES VACCINES (1 Met [facility] Test 14:48:42 of 2) [code = SHINGLES VACCINES (1 of 2)] Future Scheduled 2022-03-25 BREAST CANCER [facility] Test 14:48:42 SCREENING [code = BREAST CANCER SCREENING] Future Scheduled 2022-03-25 COLONOSCOPY SCREENING [facility] Test 14:48:42 [code = COLONOSCOPY SCREENING] Future Scheduled 2022-03-25 HEPATITIS B VACCINES Met [facility] Test 14:48:42 (1 of 3 - Risk 3-dose series) [code = HEPATITIS B VACCINES (1 of 3 - Risk 3-dose series)] Future Scheduled 2022-03-25 COVID-19 VACCINE (3 - [facility] Test 14:48:42 Booster for Pfizer [...] 2022-03-25 SHINGLES VACCINES (1 Met [facility] Test 14:48:42 of 2) [code = SHINGLES VACCINES (1 of 2)] Future Scheduled 2022-03-25 BREAST CANCER [facility] Test 14:48:42 SCREENING [code = BREAST CANCER SCREENING] Future Scheduled 2022-03-25 COLONOSCOPY SCREENING [facility] Test 14:48:42 [code = COLONOSCOPY SCREENING] Future Scheduled 2022-03-25 HEPATITIS B VACCINES Met [facility] Test 14:48:42 (1 of 3 - Risk 3-dose series) [code = HEPATITIS B VACCINES (1 of 3 - Risk 3-dose series)] Future Scheduled 2022-03-25 COVID-19 VACCINE (3 - [facility] Test 14:48:42 Booster for Pfizer [...] 2022-03-25 SHINGLES VACCINES (1 Met [facility] Test 14:48:42 of 2) [code = SHINGLES VACCINES (1 of 2)] Future Scheduled 2022-03-25 BREAST CANCER [facility] Test 14:48:42 SCREENING [code = BREAST CANCER SCREENING] Future Scheduled 2022-03-25 COLONOSCOPY SCREENING [facility] Test 14:48:42 [code = COLONOSCOPY SCREENING] Future Scheduled 2022-03-25 HEPATITIS B VACCINES Met [facility] Test 14:48:42 (1 of 3 - Risk 3-dose series) [code = HEPATITIS B VACCINES (1 of 3 - Risk 3-dose series)] Future Scheduled 2022-03-25 COVID-19 VACCINE (3 - [facility] Test 14:48:42 Booster for Pfizer series) [code = COVID-19 VACCINE (3 - Booster for Pfizer series)] Future Scheduled 2022-03-25 65+ [facility]OCOCCAL [facility] Test 14:48:42 VACCINE (4 - PPSV23 if available, else PCV20) [code = 65+ PNEUMOCOCCAL VACCINE (4 - PPSV23 if available, else PCV20)] Future Scheduled 2022-03-25 INFLUENZA VACCINE Method [facility] Test 14:48:42 [code = INFLUENZA VACCINE] Future Scheduled 2022-03-25 SHINGLES VACCINES (1 Met [facility] Test 14:48:42 of 2) [code = SHINGLES VACCINES (1 of 2)] Future Scheduled 2022-03-25 BREAST CANCER [facility] Test 14:48:42 SCREENING [code = BREAST CANCER SCREENING] Future Scheduled 2022-03-25 COLONOSCOPY SCREENING [facility] Test 14:48:42 [code = COLONOSCOPY SCREENING] Future Scheduled 2022-03-25 HEPATITIS B VACCINES Met [facility] Test 14:48:42 (1 of 3 - Risk 3-dose series) [code = HEPATITIS B VACCINES (1 of 3 - Risk 3-dose series)] Future Scheduled 2022-03-25 COVID-19 VACCINE (3 - Me [facility] Test 14:48:42 Booster for Pfizer [...] 2022-03-25 SHINGLES VACCINES (1 Met [facility] Test 14:48:42 of 2) [code = SHINGLES VACCINES (1 of 2)] Future Scheduled 2022-03-25 BREAST CANCER [facility] Test 14:48:42 SCREENING [code = BREAST CANCER SCREENING] Future Scheduled 2022-03-25 COLONOSCOPY SCREENING Me [facility] Test 14:48:42 [code = COLONOSCOPY SCREENING] Future Scheduled 2022-03-25 HEPATITIS B VACCINES Met [facility] Test 14:48:42 (1 of 3 - Risk 3-dose series) [code = HEPATITIS B VACCINES (1 of 3 - Risk 3-dose series)] Future Scheduled 2022-03-25 COVID-19 VACCINE (3 - [facility] Test 14:48:42 Booster for Pfizer series) [code = COVID-19 VACCINE (3 - Booster for Pfizer series)] Future Scheduled 2022-03-25 65+ [facility]OCOCCAL [facility] Test 14:48:42 VACCINE (4 - PPSV23 if available, else PCV20) [code = 65+ PNEUMOCOCCAL VACCINE (4 - PPSV23 if available, else PCV20)] Future Scheduled 2022-03-25 INFLUENZA VACCINE Method [facility] Test 14:48:42 [code = INFLUENZA VACCINE] Future Scheduled 2022-03-25 SHINGLES VACCINES (1 Met [facility] Test 14:48:42 of 2) [code = SHINGLES VACCINES (1 of 2)] Future Scheduled 2022-03-25 BREAST CANCER [facility] Test 14:48:42 SCREENING [code = BREAST CANCER SCREENING] Future Scheduled 2022-03-25 COLONOSCOPY SCREENING [facility] Test 14:48:42 [code = COLONOSCOPY SCREENING] Future Scheduled 2022-03-25 HEPATITIS B VACCINES Met [facility] Test 14:48:42 (1 of 3 - Risk 3-dose series) [code = HEPATITIS B VACCINES (1 of 3 - Risk 3-dose series)] Future Scheduled 2022-03-25 COVID-19 VACCINE (3 - Me [facility] Test 14:48:42 Booster for Pfizer series) [code = COVID-19 VACCINE (3 - Booster for Pfizer series)] Future Scheduled 2022-03-25 65+ [facility]OCOCCAL [facility] Test 14:48:42 VACCINE (4 - PPSV23 if available, else PCV20) [code = 65+ PNEUMOCOCCAL VACCINE (4 - PPSV23 if available, else PCV20)] Future Scheduled 2022-03-25 INFLUENZA VACCINE Method [facility] Test 14:48:42 [code = INFLUENZA VACCINE] Future Scheduled 2022-03-25 SHINGLES VACCINES (1 Met [facility] Test 14:48:42 of 2) [code = SHINGLES VACCINES (1 of 2)] Future Scheduled 2022-03-25 BREAST CANCER [facility] Test 14:48:42 SCREENING [code = BREAST CANCER SCREENING] Future Scheduled 2022-03-25 COLONOSCOPY SCREENING [facility] Test 14:48:42 [code = COLONOSCOPY SCREENING] Future Scheduled 2022-03-25 HEPATITIS B VACCINES Met [facility] Test 14:48:42 (1 of 3 - Risk 3-dose series) [code = HEPATITIS B VACCINES (1 of 3 - Risk 3-dose series)] Future Scheduled 2022-03-25 COVID-19 VACCINE (3 - [facility] Test 14:48:42 Booster for Pfizer series) [code = COVID-19 VACCINE (3 - Booster for Pfizer series)] Future Scheduled 2022-03-25 65+ [facility]OCOCCAL [facility] Test 14:48:42 VACCINE (4 - PPSV23 if available, else PCV20) [code = 65+ PNEUMOCOCCAL VACCINE (4 - PPSV23 if available, else PCV20)] Future Scheduled 2022-03-25 INFLUENZA VACCINE Method [facility] Test 14:48:42 [code = INFLUENZA VACCINE] Future Scheduled 2022-03-25 SHINGLES VACCINES (1 Met [facility] Test 14:48:42 of 2) [code = SHINGLES VACCINES (1 of 2)] Future Scheduled 2022-03-25 BREAST CANCER [facility] Test 14:48:42 SCREENING [code = BREAST CANCER SCREENING] Future Scheduled 2022-03-25 COLONOSCOPY SCREENING Me [facility] Test 14:48:42 [code = COLONOSCOPY SCREENING] Future Scheduled 2022-03-25 HEPATITIS B VACCINES Met [facility] Test 14:48:42 (1 of 3 - Risk 3-dose series) [code = HEPATITIS B VACCINES (1 of 3 - Risk 3-dose series)] Future Scheduled 2022-03-25 COVID-19 VACCINE (3 - [facility] Test 14:48:42 Booster for Pfizer series) [code = COVID-19 VACCINE (3 - Booster for Pfizer series)] Future Scheduled 2022-03-25 65+ [facility]UMOCOCCAL [facility] Test 14:48:42 VACCINE (4 - PPSV23 if available, else PCV20) [code = 65+ PNEUMOCOCCAL VACCINE (4 - PPSV23 if available, else PCV20)] Future Scheduled 2022-03-25 INFLUENZA VACCINE Method [facility] Test 14:48:42 [code = INFLUENZA VACCINE] Future Scheduled 2022-03-25 SHINGLES VACCINES (1 Met [facility] Test 14:48:42 of 2) [code = SHINGLES VACCINES (1 of 2)] Future Scheduled 2022-03-25 BREAST CANCER [facility] Test 14:48:42 SCREENING [code = BREAST CANCER SCREENING] Future Scheduled 2022-03-25 COLONOSCOPY SCREENING [facility] Test 14:48:42 [code = COLONOSCOPY SCREENING] Future Scheduled 2022-03-25 HEPATITIS B VACCINES Met [facility] Test 14:48:42 (1 of 3 - Risk 3-dose series) [code = HEPATITIS B VACCINES (1 of 3 - Risk 3-dose series)] Future Scheduled 2022-03-25 COVID-19 VACCINE (3 - [facility] Test 14:48:42 Booster for Pfizer [...] 2022-03-04 SHINGLES VACCINES (1 Met [facility] Test 14:03:57 of 2) [code = SHINGLES VACCINES (1 of 2)] Future Scheduled 2022-03-04 BREAST CANCER [facility] Test 14:03:57 SCREENING [code = BREAST CANCER SCREENING] Future Scheduled 2022-03-04 COLONOSCOPY SCREENING [facility] Test 14:03:57 [code = COLONOSCOPY SCREENING] Future Scheduled 2022-03-04 HEPATITIS B VACCINES Met [facility] Test 14:03:57 (1 of 3 - Risk 3-dose series) [code = HEPATITIS B VACCINES (1 of 3 - Risk 3-dose series)] Future Scheduled 2022-03-04 COVID-19 VACCINE (3 - [facility] Test 14:03:57 Booster for Pfizer series) [code = COVID-19 VACCINE (3 - Booster for Pfizer series)] Future Scheduled 2022-03-04 65+ PNEUMOCOCCAL [facility] Test 14:03:57 VACCINE (4 - PPSV23 if available, else PCV20) [code = 65+ PNEUMOCOCCAL VACCINE (4 - PPSV23 if available, else PCV20)] Future Scheduled 2022-03-04 INFLUENZA VACCINE [facility] Test 14:03:57 [code = INFLUENZA VACCINE] Future Scheduled 2022-03-04 SHINGLES VACCINES (1 Met [facility] Test 14:03:57 of 2) [code = SHINGLES VACCINES (1 of 2)] Future Scheduled 2022-03-04 BREAST CANCER [facility] Test 14:03:57 SCREENING [code = BREAST CANCER SCREENING] Future Scheduled 2022-03-04 COLONOSCOPY SCREENING [facility] Test 14:03:57 [code = COLONOSCOPY SCREENING] Future Scheduled 2022-03-04 HEPATITIS B VACCINES Met [facility] Test 14:03:57 (1 of 3 - Risk 3-dose series) [code = HEPATITIS B VACCINES (1 of 3 - Risk 3-dose series)] Future Scheduled 2022-03-04 COVID-19 VACCINE (3 - [facility] Test 14:03:57 Booster for Pfizer series) [code = COVID-19 VACCINE (3 - Booster for Pfizer series)] Future Scheduled 2022-03-04 65[facility]:03:57 VACCINE (4 - PPSV23 if available, else PCV20) [code = 65+ PNEUMOCOCCAL VACCINE (4 - PPSV23 if available, else PCV20)] Future Scheduled 2022-03-04 INFLUENZA VACCINE [facility] Test 14:03:57 [code = INFLUENZA VACCINE] Future Scheduled 2022-03-04 SHINGLES VACCINES (1 Met [facility] Test 14:03:57 of 2) [code = SHINGLES VACCINES (1 of 2)] Future Scheduled 2022-03-04 BREAST CANCER [facility] Test 14:03:57 SCREENING [code = BREAST CANCER SCREENING] Future Scheduled 2022-03-04 COLONOSCOPY SCREENING [facility] Test 14:03:57 [code = COLONOSCOPY SCREENING] Future Scheduled 2022-03-04 HEPATITIS B VACCINES Met [facility] Test 14:03:57 (1 of 3 - Risk 3-dose series) [code = HEPATITIS B VACCINES (1 of 3 - Risk 3-dose series)] Future Scheduled 2022-03-04 COVID-19 VACCINE (3 - [facility] Test 14:03:57 Booster for Pfizer series) [code = COVID-19 VACCINE (3 - Booster for Pfizer series)] Future Scheduled 2022-03-04 65[facility] 14:03:57 VACCINE (4 - PPSV23 if available, else PCV20) [code = 65+ PNEUMOCOCCAL VACCINE (4 - PPSV23 if available, else PCV20)] Future Scheduled 2022-03-04 INFLUENZA VACCINE Method [facility] Test 14:03:57 [code = INFLUENZA VACCINE] Future Scheduled 2022-03-04 SHINGLES VACCINES (1 Met [facility] Test 14:03:57 of 2) [code = SHINGLES VACCINES (1 of 2)] Future Scheduled 2022-03-04 BREAST CANCER [facility] Test 14:03:57 SCREENING [code = BREAST CANCER SCREENING] Future Scheduled 2022-03-04 COLONOSCOPY SCREENING [facility] Test 14:03:57 [code = COLONOSCOPY SCREENING] Future Scheduled 2022-03-04 HEPATITIS B VACCINES Met [facility] Test 14:03:57 (1 of 3 - Risk 3-dose series) [code = HEPATITIS B VACCINES (1 of 3 - Risk 3-dose series)] Future Scheduled 2022-03-04 COVID-19 VACCINE (3 - [facility] Test 14:03:57 Booster for Pfizer series) [code = COVID-19 VACCINE (3 - Booster for Pfizer series)] Future Scheduled 2022-03-04 65+ PNEUMOCOCCAL [facility] Test 14:03:57 VACCINE (4 - PPSV23 if available, else PCV20) [code = 65+ PNEUMOCOCCAL VACCINE (4 - PPSV23 if available, else PCV20)] Future Scheduled 2022-03-04 INFLUENZA VACCINE Method [facility] Test 14:03:57 [code = INFLUENZA VACCINE] Future Scheduled 2022-02-11 SHINGLES VACCINES (1 Met [facility] Test 13:39:12 of 2) [code = SHINGLES VACCINES (1 of 2)] Future Scheduled 2022-02-11 BREAST CANCER [facility] Test 13:39:12 SCREENING [code = BREAST CANCER SCREENING] Future Scheduled 2022-02-11 COLONOSCOPY SCREENING [facility] Test 13:39:12 [code = COLONOSCOPY SCREENING] Future Scheduled 2022-02-11 HEPATITIS B VACCINES Met [facility] Test 13:39:12 (1 of 3 - Risk 3-dose series) [code = HEPATITIS B VACCINES (1 of 3 - Risk 3-dose series)] Future Scheduled 2022-02-11 COVID-19 VACCINE (3 - [facility] Test 13:39:12 Booster for Pfizer series) [code = COVID-19 VACCINE (3 - Booster for Pfizer series)] Future Scheduled 2022-02-11 65+ PNEUMOCOCCAL [facility] Test 13:39:12 VACCINE (4 - PPSV23 or PCV20) [code = 65+ PNEUMOCOCCAL VACCINE (4 - PPSV23 or PCV20)] Future Scheduled 2022-02-11 INFLUENZA VACCINE Method [facility] Test 13:39:12 [code = INFLUENZA VACCINE] Future Scheduled 2022-01-29 SHINGLES VACCINES (1 Met [facility] Test 14:07:20 of 2) [code = SHINGLES VACCINES (1 of 2)] Future Scheduled 2022-01-29 BREAST CANCER [facility] Test 14:07:20 SCREENING [code = BREAST CANCER SCREENING] Future Scheduled 2022-01-29 COLONOSCOPY SCREENING [facility] Test 14:07:20 [code = COLONOSCOPY SCREENING] Future Scheduled 2022-01-29 HEPATITIS B VACCINES Met [facility] Test 14:07:20 (1 of 3 - Risk 3-dose series) [code = HEPATITIS B VACCINES (1 of 3 - Risk 3-dose series)] Future Scheduled 2022-01-29 COVID-19 VACCINE (3 - [facility] Test 14:07:20 Booster for Pfizer series) [code = COVID-19 VACCINE (3 - Booster for Pfizer series)] Future Scheduled 2022-01-29 65+ PNEUMOCOCCAL [facility] Test 14:07:20 VACCINE (4 - PPSV23 or PCV20) [code = 65+ PNEUMOCOCCAL VACCINE (4 - PPSV23 or PCV20)] Future Scheduled 2022-01-29 INFLUENZA VACCINE Method [facility] Test 14:07:20 [code = INFLUENZA VACCINE] Future Scheduled 2022-01-29 SHINGLES VACCINES (1 Met [facility] Test 14:07:20 of 2) [code = SHINGLES VACCINES (1 of 2)] Future Scheduled 2022-01-29 BREAST CANCER [facility] Test 14:07:20 SCREENING [code = BREAST CANCER SCREENING] Future Scheduled 2022-01-29 COLONOSCOPY SCREENING [facility] Test 14:07:20 [code = COLONOSCOPY SCREENING] Future Scheduled 2022-01-29 HEPATITIS B VACCINES Met [facility] Test 14:07:20 (1 of 3 - Risk 3-dose series) [code = HEPATITIS B VACCINES (1 of 3 - Risk 3-dose series)] Future Scheduled 2022-01-29 COVID-19 VACCINE (3 - [facility] Test 14:07:20 Booster for Pfizer series) [code = COVID-19 VACCINE (3 - Booster for Pfizer series)] Future Scheduled 2022-01-29 65+ PNEUMOCOCCAL [facility] Test 14:07:20 VACCINE (4 - PPSV23 or PCV20) [code = 65+ PNEUMOCOCCAL VACCINE (4 - PPSV23 or PCV20)] Future Scheduled 2022-01-29 INFLUENZA VACCINE Method [facility] Test 14:07:20 [code = INFLUENZA VACCINE] Future Scheduled 2022-01-29 SHINGLES VACCINES (1 Met [facility] Test 14:07:20 of 2) [code = SHINGLES VACCINES (1 of 2)] Future Scheduled 2022-01-29 BREAST CANCER [facility] Test 14:07:20 SCREENING [code = BREAST CANCER SCREENING] Future Scheduled 2022-01-29 COLONOSCOPY SCREENING [facility] Test 14:07:20 [code = COLONOSCOPY SCREENING] Future Scheduled 2022-01-29 HEPATITIS B VACCINES Met [facility] Test 14:07:20 (1 of 3 - Risk 3-dose series) [code = HEPATITIS B VACCINES (1 of 3 - Risk 3-dose series)] Future Scheduled 2022-01-29 COVID-19 VACCINE (3 - Me [facility] Test 14:07:20 Booster for Pfizer series) [code = COVID-19 VACCINE (3 - Booster for Pfizer series)] Future Scheduled 2022-01-29 65+ PNEUMOCOCCAL [facility] Test 14:07:20 VACCINE (4 - PPSV23 or PCV20) [code = 65+ PNEUMOCOCCAL VACCINE (4 - PPSV23 or PCV20)] Future Scheduled 2022-01-29 INFLUENZA VACCINE Method [facility] Test 14:07:20 [code = INFLUENZA VACCINE] Future Scheduled 2022-01-29 SHINGLES VACCINES (1 Met [facility] Test 14:07:20 of 2) [code = SHINGLES VACCINES (1 of 2)] Future Scheduled 2022-01-29 BREAST CANCER [facility] Test 14:07:20 SCREENING [code = BREAST CANCER SCREENING] Future Scheduled 2022-01-29 COLONOSCOPY SCREENING [facility] Test 14:07:20 [code = COLONOSCOPY SCREENING] Future Scheduled 2022-01-29 HEPATITIS B VACCINES Met [facility] Test 14:07:20 (1 of 3 - Risk 3-dose series) [code = HEPATITIS B VACCINES (1 of 3 - Risk 3-dose series)] Future Scheduled 2022-01-29 COVID-19 VACCINE (3 - [facility] Test 14:07:20 Booster for Pfizer series) [code = COVID-19 VACCINE (3 - Booster for Pfizer series)] Future Scheduled 2022-01-29 65+ PNEUMOCOCCAL [facility] Test 14:07:20 VACCINE (4 - PPSV23 or PCV20) [code = 65+ PNEUMOCOCCAL VACCINE (4 - PPSV23 or PCV20)] Future Scheduled 2022-01-29 INFLUENZA VACCINE Method [facility] Test 14:07:20 [code = INFLUENZA VACCINE] Future Scheduled 2022-01-20 SHINGLES VACCINES (1 Met [facility] Test 06:12:34 of 2) [code = SHINGLES VACCINES (1 of 2)] Future Scheduled 2022-01-20 Screening for [facility] Test 06:12:34 malignant neoplasm of cervix (procedure) [code = 058947898] Future Scheduled 2022-01-20 BREAST CANCER [facility] Test 06:12:34 SCREENING [code = BREAST CANCER SCREENING] Future Scheduled 2022-01-20 COLONOSCOPY SCREENING [facility] Test 06:12:34 [code = COLONOSCOPY SCREENING] Future Scheduled 2022-01-20 HEPATITIS B VACCINES Met [facility] Test 06:12:34 (1 of 3 - Risk 3-dose series) [code = HEPATITIS B VACCINES (1 of 3 - Risk 3-dose series)] Future Scheduled 2022-01-20 COVID-19 VACCINE (3 - [facility] Test 06:12:34 Booster for Pfizer series) [code = COVID-19 VACCINE (3 - Booster for Pfizer series)] Future Scheduled 2022-01-20 65+ PNEUMOCOCCAL [facility] Test 06:12:34 VACCINE (4 - PPSV23 or PCV20) [code = 65+ PNEUMOCOCCAL VACCINE (4 - PPSV23 or PCV20)] Future Scheduled 2022-01-20 INFLUENZA VACCINE Method [facility] Test 06:12:34 [code = INFLUENZA VACCINE] Future Scheduled 2022-01-16 SHINGLES VACCINES (1 Met [facility] Test 12:09:25 of 2) [code = SHINGLES VACCINES (1 of 2)] Future Scheduled 2022-01-16 Screening for [facility] Test 12:09:25 malignant neoplasm of cervix (procedure) [code = [id number]] Future Scheduled 2022-01-16 BREAST CANCER [facility] Test 12:09:25 SCREENING [code = BREAST CANCER SCREENING] Future Scheduled 2022-01-16 COLONOSCOPY SCREENING [facility] Test 12:09:25 [code = COLONOSCOPY SCREENING] Future Scheduled 2022-01-16 HEPATITIS B VACCINES Met [facility] Test 12:09:25 (1 of 3 - Risk 3-dose series) [code = HEPATITIS B VACCINES (1 of 3 - Risk 3-dose series)] Future Scheduled 2022-01-16 COVID-19 VACCINE (3 - [facility] Test 12:09:25 Booster for Pfizer series) [code = COVID-19 VACCINE (3 - Booster for Pfizer series)] Future Scheduled 2022-01-16 65+ PNEUMOCOCCAL [facility] Test 12:09:25 VACCINE (4 - PPSV23 or PCV20) [code = 65+ PNEUMOCOCCAL VACCINE (4 - PPSV23 or PCV20)] Future Scheduled 2022-01-16 INFLUENZA VACCINE Method [facility] Test 12:09:25 [code = INFLUENZA VACCINE] Future Scheduled 2022-01-14 SHINGLES VACCINES (1 Met [facility] Test 04:11:46 of 2) [code = SHINGLES VACCINES (1 of 2)] Future Scheduled 2022-01-14 Screening for [facility] Test 04:11:46 malignant neoplasm of cervix (procedure) [code = 410905396] Future Scheduled 2022-01-14 BREAST CANCER [facility] Test 04:11:46 SCREENING [code = BREAST CANCER SCREENING] Future Scheduled 2022-01-14 COLONOSCOPY SCREENING [facility] Test 04:11:46 [code = COLONOSCOPY SCREENING] Future Scheduled 2022-01-14 HEPATITIS B VACCINES Met [facility] Test 04:11:46 (1 of 3 - Risk 3-dose series) [code = HEPATITIS B VACCINES (1 of 3 - Risk 3-dose series)] Future Scheduled 2022-01-14 COVID-19 VACCINE (3 - [facility] Test 04:11:46 Booster for Pfizer series) [code = COVID-19 VACCINE (3 - Booster for Pfizer series)] Future Scheduled 2022-01-14 65+ PNEUMOCOCCAL [facility] Test 04:11:46 VACCINE (4 - PPSV23 or PCV20) [code = 65+ PNEUMOCOCCAL VACCINE (4 - PPSV23 or PCV20)] Future Scheduled 2022-01-14 INFLUENZA VACCINE Method [facility] Test 04:11:46 [code = INFLUENZA VACCINE] Future Scheduled 2021-08-26 Screening for [facility] Test 13:02:23 malignant neoplasm of cervix (procedure) [code = [id number]] Future Scheduled 2021-08-26 BREAST CANCER [facility] Test 13:02:23 SCREENING [code = BREAST CANCER SCREENING] Future Scheduled 2021-08-26 COLONOSCOPY SCREENING [facility] Test 13:02:23 [code = COLONOSCOPY SCREENING] Future Scheduled 2021-08-26 Screening for [facility] Test 13:02:23 malignant neoplasm of lung (procedure) [code = [id number]] Future Scheduled 2021-08-26 SHINGLES VACCINES (#1) [facility] Test 13:02:23 [code = SHINGLES VACCINES (#1)] Future Scheduled 2021-08-26 COVID-19 VACCINE (3 - Me [facility] Test 13:02:23 Pfizer risk 4-dose series) [code = COVID-19 VACCINE (3 - Pfizer risk 4-dose series)] Future Scheduled 2021-08-26 65+ PNEUMOCOCCAL [facility] Test 13:02:23 VACCINE (4 of 4 - PPSV23) [code = 65+ PNEUMOCOCCAL VACCINE (4 of 4 - PPSV23)] Future Scheduled 2021-08-26 INFLUENZA VACCINE Method [facility] Test 13:02:23 [code = INFLUENZA VACCINE] Encounters Start End Encounter Admission Attending Care Care Encounter Source Date/Time Date/Time Type Type Clinicians Facility Department ID 2022-02-18 Outpatient [facility] [id number] [place] 14:30:[address] [place] [address] 2021-07-14 Outpatient SADIKOVIC, [facility] [id number] [place] 09:33:51 [facility] 2021-06-02 Outpatient HEMATPOUR, [facility] [id number] [place] 13:58:59 [facility] 2021-04-28 Outpatient HEMATPOUR, [facility] [id number] [place] 11:21[facility] 2021-03-20 Emergency [facility] [id number] Univers 16:07:40 ity [facility] 2020-12-12 Outpatient HEMATPOUR, [facility] [id number] [place] 08:16:[facility] 2020-10-31 Outpatient HEMATPOUR, [facility] [id number] [place] 09:44:50 [facility] 2020-09-30 Outpatient HEMATPOUR, [facility] [id number] [place] 13:16:03 [facility] 2023-01-17 2023-01-17 Reflamonte Cardenas, [facility] 1.2.626.489 [id number] Univers 00:00:00 00:00:00 [facility] 350.1.13.10 i ty [facility] 4.2.7.2.686 [id number] [place] [address] [place] 2022-11-26 2022-11-26 Outpatient R [facility] [id number] Univers 08:30:00 08:30:00 ity [facility] 2022-11-15 2022-11-15 Outpatient R [facility] [id number] Univers 08:30:00 08:30:00 [facility] 2022-11-02 2022-11-02 [facility] [id number] Univers 08:30:00 08:30:00 SANTIAGO [facility] 2022-10-27 2022-10-27 Telephone [place], [facility] 1.2.840.114 [id number] Univers 00:00:00 00:00:00 [facility] 350.1.13.10 i ty [place] [id number] [address] 2022-10-06 2022-10-06 [facility] [id number] Univers 09:30:00 09:30:00 S[place]IAGO [facility] 2022-09-26 2022-09-26 [facility] 1.2.293.298 [id number] Univers 00:00:00 00:00:00 [facility] 350.1.13.10 i [place] [id number] [address] 2022-09-03 2022-09-03 Out[facility] [id number] Univers 11:00:00 11:00:00 SANT[place]AGO [facility] 2022-08-24 2022-08-24 Refill [facility], 1.2.840.7 [id number] Univers 00:00:00 00:00:00 [place] 14884.1.1 ity of 3.104.2.7 [place] .3.700531 Medica l .8 [place] 2022-05-20 2022-05-20 Telephone [facility] 1.2.840.114 [id number] Univers 00:00:00 00:00:00 [facility] 350.1.13.10 i [place] [id number] [address] 2022-05-10 2022-05-10 Emergency [facility] E[facility] [id number] Univers 10:30:00 16:31:00 HOME ity [facility] 2022-05-10 2022-05-10 Emergency [place], TRAU[place] 1.2.840.114 [id number] Univers 10:30:00 16:31:00 [facility] 350.1.13.10 [place].2.686 [place] [id number] [facility] 014 [place] 2022-05-10 2022-05-10 Telephone [place], [facility] 1.2.840.114 [id number] Univers 00:00:00 00:00:00 [facility] 350.1.13.10 i [place] [id number] [address] 2022-05-08 2022-05-08 Emergency [facility] ERT [id number] Univers 16:18:00 18:42:00 THERESA [facility] 2022-05-08 2022-05-08 Emergency [facility] 1.2.840.114 [id number] Univers 16:18:00 18:42:00 Theresa [facility] [facility].13.10 [facility] [place] [id number] [address] 2022-05-07 2022-05-07 Telephone [facility] 1.2.840.114 [id number] Univers 00:00:00 00:00:00 [facility] 350.1.13.10 i [place] [id number] [address] 2022-05-06 2022-05-06 Emergency [facility] ERT [id number] Univers 14:13:00 18:19:00 ANETTE [facility] 2022-05-06 2022-05-06 Emergency [facility] 1.2.372.567 [id number] Univers 14:13:00 18:19:00 Anette BULLOCK 350.1.13.10 ity [facility] 4.2.7.2.686 [place] [facility] [id number] [place] 064914 [place] 2022-05-06 2022-05-06 Telephone JOSÉ ANTONIO Cardenas 1.2.840.114 [id number] Univers 00:00:00 00:00:00 [facility] 350.1.13.10 i [place] [id number] [address] 2022-04-22 2022-04-22 Emergency X [facility] ERT [id number] Univers 13:55:00 17:00:00 PAULETTE ity of [facility] 2022-04-22 2022-04-[address] [facility] 1.2.088.238 [id number] Univers 13:55:00 17:00:00 Paulette S [facility] 350.1.13.10 i ty of [place] 4.2.7.2.686 [facility] [id number] [address] 2022-04-07 2022-04-07 Outpatient R [facility], [facility] [id number] Univers 20:40:00 20:40:00 ATTENDING ity of [facility] [place] [facility] 2022-04-07 2022-04-07 Telephone [place], 1.2.840.4 [id number] Univers 00:00:00 00:00:00 Robbi Hairston 77998.1.1 i ty of 3.104.2.7 [place] .3.909336 Medica l .8 [place] 2022-03-05 2022-03-05 Machine Set Up [place] Cardenas 1.2.840.1 [id number] Univers 13:45:00 14:00:00 Visit [facility] 93421.1.1 ity of 3.104.2.7 [place] .3.024649 Medica l .8 [place] 2022-03-05 2022-03-05 Office JOSÉ ANTONIO Cardenas 1.2.590.510 [id number] Univers 13:00:00 13:30:00 Visit [facility] 350.1.13.10 i ty of CL[place]ICS 4[place] [id number] [facility] 089 [place] 2022-03-05 2022-03-05 Outpatient R [facility] [id number] Univers 13:00:00 13:00:00 [facility] 2022-02-26 2022-02-26 Outpatient R [facility] [id number] Univers 08:30:00 08:30:00 [facility] 2022-02-26 2022-02-26 Outpatient R [facility] [id number] Univers 08:30:00 08:30:00 [facility] 2022-02-17 2022-02-17 Transition Stevo, 1.2.840.1 [id number] Univers 00:00:00 00:00:00 of Care Isaias Arredondo 74290.1.1 it y of 3.104.2.7 [place] .3.927821 Medica l .8 [place] 2022-02-10 2022-02-16 Inpatient X [facility] [id number] Univers 22:59:00 19:27:00 [facility] 2022-02-10 2022-02-16 Hospital Reilly Means 1.2.840.1 [id number] Univers 22:59:00 19:27:00 Encounter Ofe Shields 93821.1.1 ity of [place] 3.104.2.7 [place] .3.472929 Medica l .8 [place] 2022-02-11 2022-02-11 Telephone [facility], 1.2.840.0 [id number] Univers 00:00:00 00:00:00 [place] 49293.1.1 ity of 3.104.2.7 [place] .3.098962 Medica l .8 [place] 2022-02-10 2022-02-10 Travel 1.2.840.1 1.2.562.326 [id number] Univers 00:00:00 00:00:00 20107.1.1 350.1.13.10 ity of 3.104.2.7 4.2.7.3.698 [place] .3.973882 084.8 Medica l .8 [place] 2022-01-30 2022-01-30 Telephone [place], 1.2.840.8 [id number] Univers 00:00:00 00:00:00 [place] 02494.1.1 ity of 3.104.2.7 [place] .3.549503 Medica l .8 [place] 2022-01-06 2022-01-06 Orders Doctor FERMIN 1.2.840.114 [id number] Univers 00:00:00 00:00:00 Only Unassigned, JACKELINE 350.1.13.10 ity of [facility] 4.2.7.2.686 Yomi as [id number] [facility] 009 [place] 2021-12-25 2021-12-25 Orders Doctor FERMIN 1.2.840.114 [id number] Univers 00:00:00 00:00:00 Only Unassigned, JACKELINE 350.1.13.10 ity of [facility] 4.2.7.2.686 Yomi as [id number] [facility] 009 [place] 2021-12-12 2021-12-13 Emergency X Bill COLES [facility] ERT [id number] Univers 23:53:00 01:52:00 ity of [facility] [place] [facility] 2021-12-12 2021-12-13 Emergency Bill Coles [facility] 1.2.840.114 [id number] Univers 23:53:00 01:52:00 Kiersten BULLOCK 350.1.13.10 i ty of [place] 4.2.7.2.686 [place] [id number] [facility] 084 [place] 2021-11-20 2021-11-20 Machine Set Up [facility] 1.2.840.114 [id number] Univers 09:45:00 10:00:00 Visit Ronald [facility] 350.1.13.[address] [facility] 4.2.7.2.686 [place] [id number] [facility] 316 [place] 2021-11-20 2021-11-20 Office [place], [facility] 1.2.375.768 [id number] Univers 08:30:00 09:00:00 Visit [facility] 350.1.13.[address] [facility] 4.2.7.2.686 [facility] [id number] [place] 064919 [place] 2021-11-20 2021-11-20 Outpatient R [email or web address] [id number] Univers 08:30:00 08:30:00 [facility] 2021-11-20 2021-11-20 Outpatient R [email or web address] [id number] Univers 08:30:00 08:30:00 [facility] 2021-11-20 2021-11-20 Outpatient R [facility] [id number] Univers 08:30:00 08:30:00 [facility] 2021-11-20 2021-11-20 Outpatient R [email or web address] [id number] Univers 08:30:00 08:30:00 [facility] 2021-10-24 2021-10-24 Emergency X [facility] ERT [id number] Univers 16:27:00 22:26:00 [facility] 2021-10-24 2021-10-24 Emergency [facility] [id number] Univers 16:27:00 22:26:00 [facility] 2021-10-24 2021-10-24 Emergency Reilly Means [facility] 1.2.840. 114 [id number] Univers 16:27:00 22:26:00 Charity Mcallister [facility] 350.1.13.10 ity [facility] 4.2.7.2.686 [facility] [id number] [address] 2021-10-23 2021-10-24 Emergency [facility] ERT [id number] Univers 20:22:00 02:57:00 [facility] 2021-10-23 2021-10-24 Emergency [facility] 1.2.803.324 [id number] Univers 20:22:00 02:57:00 [facility] 350.1.13.10 ity [facility] 4.2.7.2.686 [facility] [id number] [facility] 084 [place] 2021-09-07 2021-09-07 Outpatient R SELF, [facility] [id number] Univers 08:00:00 08:00:00 GADIEL rodas [facility] [place] [facility] 2021-09-07 2021-09-07 Outpatient [facility], [facility] [id number] Univers 08:00:00 08:00:00 GADIEL barbosa o f [facility] [place] [facility] 2021-08-21 2021-08-21 Outpatient R [facility] [id number] Univers 10:45:00 10:45:00 SANTIAGO barbosa [facility] 2021-08-21 2021-08-21 Machine Set Up [place] Cardenas 1.2.840.1 [id number] Univers 10:45:00 10:45:00 Visit [facility] 16229.1.1 ity of 3.104.2.7 [place] .3.087450 Medica l .8 [place] 2021-08-21 2021-08-21 Office [facility], 1.2.840.7 [id number] Univers 08:30:00 09:00:00 Visit [place] 94397.1.1 ity of 3.104.2.7 [place] .3.512358 Medica l .8 [place] 2021-08-21 2021-08-21 Office [place], [facility] 1.2.624.823 [id number] Univers 08:30:00 09:00:00 Visit [place] [facility] 350.1.13.10 i ty of CLINICS 4.2.7.2.686 [facility] [place] [facility] [id number] [facility] 089 [place] 2021-08-21 2021-08-21 Outpatient R [facility] [id number] Univers 08:30:00 08:30:00 SANTIAGO barbosa [facility] 2021-08-21 2021-08-21 Travel 1.2.840.1 1.2.401.743 [id number] Univers 00:00:00 00:00:00 32522.1.1 350.1.13.10 ity of 3.104.2.7 4.2.7.3.698 [place] .3.794968 084.8 Medica l .8 [place] 2021-08-14 2021-08-14 Telephone [place], 1.2.840.3 [id number] Univers 00:00:00 00:00:00 [place] 98123.1.1 ity of 3.104.2.7 [place] .3.195168 Medica l .8 [place] 2021-08-13 2021-08-13 Telephone [place], 1.2.840.0 [id number] Univers 00:00:00 00:00:00 [place] 28572.1.1 ity of 3.104.2.7 [place] .3.932572 Medica l .8 [place] 2021-08-11 2021-08-11 Outpatient [facility] [id number] Univers 08:00:00 08:00:00 [facility] 2021-08-05 2021-08-05 Inpatient [place], [place] [facility] [id number] [facility] 05:24:00 05:24:00 Mike 31 [facility] 2021-07-20 2021-07-20 Outpatient [facility] [id number] Univers 10:00:00 10:00:00 [facility] 2021-07-14 2021-07-14 Office Pankaj, KIMBERLEY 6400 1.2.840.114 [id number] [place] 08:45:[place] 09:34:[address] 350.1.13.58 Health 9.2.7.2.686 [id number] 1 2021-07-09 2021-07-09 Telephone [facility], UTP 6400 1.2.840.114 [id number] [place] 00:00:00 00:00:[address] 350.1.13.58 Health 9.2.7.2.686 [id number] 1 2021-07-09 2021-07-09 Telephone [facility], [facility] 6400 1.2.840.114 [id number] [place] 00:00:[place] 00:00:[address] 350.1.13.58 Health 9.2.7.2.686 [id number] 1 2021-07-03 2021-07-03 Outpatient R EAST, [facility] [id number] Univers 08:00:00 08:00:00 SANTIAGO raheemy [facility] 2021-06-17 2021-06-17 Inpatient RAUL Lund, HCACL INTE.02 [id number] [facility] 10:56:00 14:36:00 Mike 47 [facility] 2021-06-15 2021-06-15 Outpatient R SELF, [facility] [id number] Univers 10:15:00 11:07:21 GADIEL vogel [facility] 2021-06-15 2021-06-15 Outpatient R SELF, [facility] [id number] Univers 10:15:00 10:15:00 GADIELKEI vogel [facility] 2021-06-15 2021-06-15 Outpatient R SELF, [facility] [id number] Univers 10:15:00 10:15:00 GADIEL vogel [facility] 2021-06-15 2021-06-15 Orders Doctor 1.2.840.0 [id number] Univers 00:00:00 00:00:00 Only Unassigned, 25203.1.1 ity of [place] 3.104.2.7 [place] .3.654004 Medica l .8 [place] 2021-06-15 2021-06-15 Travel 1.2.840.1 1.2.540.890 [id number] Univers 00:00:00 00:00:00 73466.1.1 350.1.13.10 ity of 3.104.2.7 4.2.7.3.698 [place] .3.840808 084.8 Medica l .8 [place] 2021-06-11 2021-06-11 Refill [place], [facility] 1.2.273.942 [id number] Univers 00:00:00 00:00:00 [place] HEALTH 350.1.13.10 i ty of CLINICS 4.2.7.2.[place] [id number] [facility] 089 [place] 2021-06-11 2021-06-11 Refill [place], 1.2.840.0 [id number] Univers 00:00:00 00:00:00 [place] 33300.1.1 ity of 3.104.2.7 [place] .3.135415 Medica l .8 [place] 2021-06-05 2021-06-05 Outpatient R RONALD, [facility] [id number] Univers 09:00:00 09:00:00 SANTIAGO maciely of [facility] [place] [facility] 2021-06-02 2021-06-02 Telephone [place], UNIVERSIT 1.2.840.114 [id number] Univers 00:00:00 00:00:00 [place] [facility] 350.1.13.[address] [facility] 4[place] [id number] [facility] 089 [place] 2021-06-02 2021-06-02 Telephone [place], 1.2.840.9 [id number] Univers 00:00:00 00:00:00 [place] 60623.1.1 ity of 3.104.2.7 [place] .3.441423 Medica l .8 [place] 2021-05-29 2021-05-29 Telephone [place], 1.2.840.8 [id number] Univers 00:00:00 00:00:00 [place] 14551.1.1 ity of 3.104.2.7 [place] .3.439469 Medica l .8 [place] 2021-05-29 2021-05-29 Telephone [place], 1.2.840.2 [id number] Univers 00:00:00 00:00:00 [place] 40224.1.1 ity of 3.104.2.7 [place] .3.105186 Medica l .8 [place] 2021-05-25 2021-05-25 Outpatient R RODO, [facility] [id number] Univers 08:00:00 08:00:00 GADIEL rodas [facility] [place] [facility] 2021-04-29 2021-04-29 Outpatient R LALA, [facility] [id number] Univers 08:00:00 08:00:00 NIKOLAI barbosa [facility] 2021-04-28 2021-04-28 Telephone Ap, [facility] 6400 1.2.840.114 [id number] [place] 00:00:[place] 00:[place]:[address] 350.1.13.58 Health 9.2.7.2.686 [id number] 1 2021-04-28 2021-04-28 Telephone Jailyn, 1.2.840.0 [id number] Methodi 00:00:00 00:00:[address] 3.430.2.7 Hospit a .3.202620 l .8 2021-03-31 2021-03-31 Orders Carol Ann, 1.2.840.1 [id number] Methodi 00:00:00 00:00:00 Only Sarai Lieberman 28774.1.1 979 s t 3.430.2.7 Hospit a .3.925131 l .8 2021-03-30 2021-03-30 Outpatient R RODO, [facility] [id number] Univers 08:45:00 08:45:00 GADIEL macielcharlie lela f [facility] [place] [facility] 2021-03-24 2021-03-24 Telephone Jailyn, 1.2.840.9 [id number] 21 [id number] Methodi 00:00:00 00:00:[address] 3.430.2.7 Hospit a .3.986627 l .8 2021-02-13 2021-02-13 Telephone Ronald, 1.2.840.9 [id number] 876 65928 Univers 00:00:00 00:00:00 Santiago 58808.1.1 ity 3.104.2.7 [facility].352463 Medica l [address] 2021-01-28 2021-01-28 Outpatient R LALA, [facility] [id number] Univers 08:45:00 09:37:00 NIKOLAI familia [facility] 2021-01-28 2021-01-28 Travel 1.2.840.1 1.2.737.978 5952 9777 Univers 00:00:00 00:00:00 07938.1.1 350.1.13.10 ity of 3.104.2.7 [place].3.698 [place]3.985[place] 084.8 Medica l .8 Branch 2021-01-19 2021-01-19 Telephone Pelletier, 1.2.840.1 [id number] 2100 780806 Methodi 00:00:00 00:00:[address] 3.430.2.7 Hospit a .3.107072 l .8 2021-01-04 2021-01-04 Letter Shelia, 1.2.840.7 [id number] 61913 696 Univers 00:00:00 00:00:00 (Out) Dagoberto H 13997.1.1 ity of 3.104.2.7 [place] .3.674388 Medica l .8 Branch 2021-01-04 2021-01-04 Letter Shelia, 1.2.840.9 [id number] 67131 696 Univers 00:00:00 00:00:00 (Out) Dagoberto H 39642.1.1 ity of 3.104.2.7 [place] .3.157262 Medica l .8 Branch 2021-01-03 2021-01-03 Letter Shelia, 1.2.840.7 [id number] 40910 790 Univers 00:00:00 00:00:00 (Out) Dagoberto H 09891.1.1 ity of 3.104.2.7 [place] .3.787637 Medica l .8 Branch 2021-01-03 2021-01-03 Letter Shelia, 1.2.840.5 [id number] 00864 790 Univers 00:00:00 00:00:00 (Out) Dagoberto H 43777.1.1 ity of 3.104.2.7 [place] .3.583131 Medica l .8 Branch 2021-01-02 2021-01-02 Outpatient R [facility] [id number] 786 Univers 13:40:00 13:40:00 ity of [facility] [place] [facility] 2021-01-02 2021-01-02 Laboratory Cuba Franks 1.2.840.6 [id number] [id number] Univers :: 12:57:34 Only Lab, [facility] [place] 64391.1.1 ity of 3.104.2.7 [place] .3.051693 Medica l .8 [place] 2021-01-02 2021-01-02 Laboratory Cuba Franks 1.2.840.7 [id number] [id number] Univers :: 12:57:34 Only Lab, [facility] [place] I 94545.1.1 ity of 3.104.2.7 [place] .3.798393 Medica l .8 [place] 2021-01-02 2021-01-02 Travel 1.2.840.1 1.2.813.922 1782 2306 Univers 00:00:00 00:00:00 71117.1.1 350.1.13.10 ity of 3.104.2.7 4.[place]7.3.698 [place] .3.896716 084.8 Medica l .8 [place] 2021-01-02 2021-01-02 Letter Doctor 1.2.840.1 [id number] 78604 948 Univers 00:00:00 00:00:00 (Out) Unassigned, 17575.1.1 ity of [place] 3.104.2.7 [place] .3.543623 Medica l .8 [place] 2021-01-02 2021-01-02 Letter Doctor 1.2.840.4 [id number] 946 Univers 00:00:00 00:00:00 (Out) Unassigned, 61037.1.1 ity of [place] 3.104.2.7 [place] .3.477885 Medica l .8 [place] 2021-01-02 2021-01-02 Travel 1.2.840.1 1.2.192.738 6418 2306 Univers 00:00:00 00:00:00 57227.1.1 350.1.13.10 ity of 3.104.2.7 4.2.7.3.698 [place] .3.713150 084.8 Medica l .8 [place] 2021-01-02 2021-01-02 Letter Doctor 1.2.840.2 [id number] 86265 948 Univers 00:00:00 00:00:00 (Out) Unassigned, 84365.1.1 ity of [place] 3.104.2.7 [place] .3.403984 Medica l .8 [place] 2021-01-02 2021-01-02 Letter Doctor 1.2.840.4 [id number] 04521 946 Univers 00:00:00 00:00:00 (Out) Unassigned, 05713.1.1 ity of [place] 3.104.2.7 [place] .3.033307 Medica l .8 Branch 2020-12-22 2020-12-22 Telephone Beltran, 1.2.840.3 [id number] 862 93512 Univers 00:00:00 00:00:00 Robbi Hairston 09549.1.1 i ty of 3.104.2.7 [place] .3.803966 Medica l .8 [place] 2020-12-22 2020-12-22 Telephone Beltran, 1.2.840.0 [id number] 862 18604 Univers 00:00:00 00:00:00 Robbi R 08155.1.1 i ty of 3.104.2.7 [place] .3.176704 Medica l .8 [place] 2020-12-12 2020-12-12 Office Hematpour, UTP 6400 1.2.840.114 [id number] [place] 07:42:02 08:18:[address] 350.1.13.58 Health 9.2.7.2.686 090.1979314 1 2020-12-12 2020-12-12 Office Hematpour, UTP 6400 1.2.840.114 [id number] 07:42:02 08:18:[facility] 350.1.13.58 9.2.7.2.686 [id number] 1 2020-12-09 2020-12-09 Telephone Meisenbach, 1.2.840.1 [id number] Methodi 00:00:00 00:00:00 Sarai Lieberman 02081.1.1 316 s t 3.430.2.7 Hospit a .3.904452 l .8 2020-12-08 2020-12-08 [facility], 1.2.840.1 [id number] 2100 010346 Methodi 12:35:54 23:59:00 Encounter Ray 69523.1.[address] 3.430.2.7 Hospit a .3.301245 l .8 2020-12-08 2020-12-08 [facility], 1.2.840.1 [id number] 32116 23910 Methodi 17:25:00 17:30:[address] 3.430.2.7 Hospit a .3.130881 l .8 2020-12-08 2020-12-08 [facility], 1.2.840.1 [id number] 15355 32925 Methodi 10:30:00 11:39:56 Visit Ray 37062.1.[address] 3.430.2.7 Hospit a .3.986947 l .8 2020-12-08 2020-12-08 Travel 1.2.840.1 1.2.975.706 2342 596645 Methodi 00:00:00 00:00:[address] 3.430.2.7 0.2.7.3.698 Ho spita .3.207630 084.8 l .8 2020-12-02 2020-12-02 Machine Set Up Santiago Cardenas 1.2.840.1 [id number] [facility] 10:20:06 10:36:19 Visit [facility] 39886.1.1 ity of 3.104.2.7 [place] .3.233350 Medica l .8 [place] 2020-12-02 2020-12-02 Machine Set Up Santiago Cardenas 1.2.840.1 [id number] 316 [id number] [facility] 10:20:06 10:36:19 Visit [facility] 30156.1.1 ity of 3.104.2.7 [place] .3.381298 Medica l .8 [place] 2020-12-02 2020-12-02 Machine Set Up [facility] UNIVERSIT 1.2.840.114 8 6165637 10:20:06 10:36:19 Visit [facility] 350.1.13.10 [facility] 4.2.7.2.686 156.9541761 [facility] 2020-12-02 2020-12-02 Office Ronald, 1.2.840.6 [id number] 44677 528 Univers 08:31:37 09:01:37 Visit Santiago 13227.1.1 ity of 3.104.2.7 [place] .3.262773 Medica l .8 [place] 2020-12-02 2020-12-02 [facility] [id number] Univers 09:00:00 09:00:00 SANTIAGO ity of [facility] [place] [facility] 2020-11-25 2020-11-25 Office Devin 1.2.840.7 [id number] 16720 865 Univers 11:06:30 11:58:14 Visit Robbi Hairston 54406.1.1 i ty of 3.104.2.7 [place] .3.180433 Medica l .8 [place] 2020-11-25 2020-11-25 Office Devin 1.2.840.3 [id number] 20914 865 Univers 11:06:30 11:58:14 Visit Robbi Hairston 54919.1.1 i ty of 3.104.2.7 [place] .3.719364 Medica l .8 [place] 2020-11-25 2020-11-25 [facility] 1.2.840.114 [id number] 65 11:06:30 11:58:14 Visit Robbi Hairston CAN 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 350.1.13.10 [facility] 4.2.7.2.686 MATERNAL [id number] & CHILD [address] [place] [address] 2020-11-25 2020-11-25 Outpatient R [facility] [id number] Univers 11:00:00 11:00:00 ity of [facility] [place] [facility] 2020-11-25 2020-11-25 Telephone Beltran, 1.2.840.1 [id number] 855 46883 Univers 00:00:00 00:00:00 Robbi Hairston 43015.1.1 i ty of 3.104.2.7 [place] .3.355106 Medica l .8 Branch 2020-11-25 2020-11-25 Refill East, 1.2.840.6 [id number] 46013 592 Univers 00:00:00 00:00:00 Santiago 48375.1.1 ity of 3.104.2.7 [place] .3.783204 Medica l .8 Branch 2020-11-25 2020-11-25 Travel 1.2.840.1 1.2.845.813 9845 0247 Univers 00:00:00 00:00:00 03058.1.1 350.1.13.10 ity of 3.104.2.7 4.2.7.3.698 [place] .3.345346 084.8 Medica l .8 Branch 2020-11-25 2020-11-25 Orders Doctor 1.2.840.7 [id number] 08038 064 Univers 00:00:00 00:00:00 Only Unassigned, 73581.1.1 ity of [place] 3.104.2.7 [place] .3.202492 Medica l .8 Branch 2020-11-25 2020-11-25 Telephone Beltran, 1.2.840.2 [id number] 855 74334 Univers 00:00:00 00:00:00 Robbi Hairston 72582.1.1 i ty of 3.104.2.7 [place] .3.366504 Medica l .8 Branch 2020-11-25 2020-11-25 Refill East, 1.2.840.8 [id number] 74358 592 Univers 00:00:00 00:00:00 Santiago 85017.1.1 ity of 3.104.2.7 [place] .3.823541 Medica l .8 Branch 2020-11-25 2020-11-25 Travel 1.2.840.1 1.2.588.154 2054 0247 Univers 00:00:00 00:00:00 72544.1.1 350.1.13.10 ity of 3.104.2.7 4.2.7.3.698 [place] .3.083136 084.8 Medica l .8 Branch 2020-11-25 2020-11-25 Orders Doctor 1.2.840.8 [id number] 62032 064 Univers 00:00:00 00:00:00 Only Unassigned, 47681.1.1 ity of [place] 3.104.2.7 [place] .3.490632 Medica l .8 Branch 2020-11-25 2020-11-25 [facility] 1.2.222.422 9064 4592 00:00:00 00:00:[address] [facility] [address] [facility] 4.2.7.2.686 [id number] 089 2020-11-25 2020-11-25 Telephone [facility] 1.2.135.852 6040 0821 00:00:00 00:00:00 Rbobi Hairston [employer] 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 350.1.13.10 [facility] 4.2.7.2.686 MATERNAL [id number] & CHILD [address] [place] [address] 2020-11-14 2020-11-14 Abstract Clark 1.2.840.1 [id number] 19303 27416 Methodi 00:00:00 00:00:[address] 3.430.2.7 Hospit a .3.367219 l .8 2020-11-14 2020-11-14 Telephone Clark 1.2.840.1 [id number] 2100 760220 Methodi 00:00:00 00:00:[address] 3.430.2.7 Hospit a .3.631848 l .8 2020-11-12 2020-11-12 Outpatient [facility] [id number] 323 Univers 08:30:00 08:30:00 SANTIAGO barbosa [facility] 2020-11-07 2020-11-07 Telephone Agustina Ortiz 6400 1.2.840.11 4 [id number] [place] 00:00:00 00:00:[address] 350.1.13.58 Health 9.2.7.2.686 [id number] 1 2020-11-07 2020-11-07 Telephone Diana UTP 6400 1.2.840.114 124 [id number] 00:00:00 00:00:[address] 350.1.13.58 9.2.7.2.686 [id number] 1 2020-10-31 2020-10-31 Office Hematporay UTP 6400 1.2.840.114 12 [id number] [place] 07:54:00 09:45:[address] 350.1.13.58 Health 9.2.7.2.686 477.8830540 1 2020-10-30 2020-10-30 Abstract Rody Maguire UTP 6400 1.2.840.1 14 [id number] [place] 00:00:00 00:00:[address] 350.1.13.58 Health 9.2.7.2.686 [id number] 1 2020-10-29 2020-10-29 Refill East, 1.2.840.8 [id number] 72896 400 Univers 00:00:00 00:00:00 Santiago 57071.1.1 ity of 3.104.2.7 [place] .3.085963 Medica l .8 Branch 2020-10-29 2020-10-29 Refill East, 1.2.840.2 [id number] 58756 400 Univers 00:00:00 00:00:00 Santiago 74328.1.1 ity of 3.104.2.7 [place] .3.610238 Medica l .8 [place] 2020-10-27 2020-10-27 Telephone Jailyn, 1.2.840.0 [id number] 21 [id number] Methodi 00:00:00 00:00:[address] 3.430.2.7 Hospit a .3.700936 l .8 2020-10-24 2020-10-24 Telephone Clark, 1.2.840.1 [id number] 2100 710542 Methodi 00:00:00 00:00:[address] 3.430.2.7 Hospit a .3.992193 l .8 2020-10-22 2020-10-22 Outpatient R SELF, [facility] [id number] 868 Univers 13:00:00 13:00:00 GADIEL barbosa [facility] 2020-10-22 2020-10-22 Travel 1.2.840.1 1.2.077.688 7158 3839 Univers 00:00:00 00:00:00 56668.1.1 350.1.13.10 ity of 3.104.2.7 4.[place].7.3.698 [place] .3.653297 084.8 Medica [facility] [place] 2020-10-22 2020-10-22 Travel 1.2.840.1 1.2.658.506 3470 3839 [facility] 00:00:00 00:00:00 81777.1.1 350.1.13.10 ity of 3.104.2.7 4.2.7.3.698 [place] .3.105985 084.[address] 2020-10-13 2020-10-13 Outpatient R SELF, [facility] [id number] Univers 08:45:00 08:45:00 GADIEL macielcharlie vogel [facility] 2020-10-06 2020-10-12 Telemedici Chidimasa, 1.2.840.1 [id number] 21 [id number] Methodi 15:30:00 00:08:46 ne Ray 57576.1.[address] 3.430.2.7 Hospit a .3.523174 l .8 2020-09-30 2020-09-30 Telephone Cadea, 1.2.840.1 [id number] 21 [id number] Methodi 00:00:00 00:00:[address] 3.430.2.7 Hospit a .3.915072 l .8 2020-09-21 2020-09-21 Travel 1.2.840.1 1.2.225.708 1645 800796 Methodi 00:00:00 00:00:[address] 3.430.2.7 0.2.7.3.698 Ho spita .3.181369 084.8 l .8 2020-09-06 2020-09-06 [facility] 1.2.840.1 [id number] 21000 57721 Methodi 17:42:30 23:59:[address] 3.430.2.7 Hospit a .3.541988 l .8 2020-09-06 2020-09-06 [facility], 1.2.840.1 [id number] 2099 [id number] Methodi 16:50:00 17:41:00 Encounter Ray [address]3692.1.[address] 3.430.2.7 Hospit a .3.450324 l .8 2020-09-05 2020-09-05 [facility], 1.2.840.1 [id number] 2100 297166 Methodi 09:17:00 19:45:00 Encounter Ray [address]778.1.[address] 3.430.2.7 Hospit a .3.491583 l .8 2020-09-05 2020-09-05 Surgery [facility], 1.2.840.1 [id number] 21000 15602 Methodi 11:30:00 13:15:[address] 3.430.2.7 Hospit a .3.967450 l .8 2020-09-05 2020-09-05 Anesthesia [facility], 1.2.840.1 [id number] 696 [id number] Methodi 11:27:00 12:20:00 Event Lynnettevalentinarobbie 39355.1.1 243 s t V. 3.430.2.7 Hospit a .3.074073 l .8 2020-09-05 2020-09-05 Travel 1.2.840.1 1.2.078.855 3579 712299 Methodi 00:00:00 00:00:[address] 3.430.2.7 0.2.7.3.698 Ho spita .3.446380 084.8 l .8 2020-09-04 2020-09-04 Telephone Meisenbach, 1.2.840.1 [id number] Methodi 00:00:00 00:00:00 Sarai Corbin. 50615.1.1 762 s t 3.430.2.7 Hospit a .3.537557 l .8 2020-09-02 2020-09-02 Telephone Meisenbach, 1.2.840.0 [id number] Methodi 00:00:00 00:00:00 Sarai Corbin. 80458.1.1 344 s t 3.430.2.7 Hospit a .3.554026 l .8 2020-08-29 2020-08-30 [id number] [facility] 10:20:00 14:10:00 Outpatient r [place] 00 l [facility] 2020-08-29 2020-08-30 Outpatient HEMATPOUR, [facility] CAR 7500 [facility] 05:20:00 09:10:00 BEVERLY 2020-08-06 2020-08-06 Office East, 1.2.840.9 [id number] [id number] 416 Univers 08:03:23 09:17:49 Visit [facility]75.1.1 [facility].104[facility]2.7 [facility].452180 Medica l .8 Branch 2020-08-06 2020-08-06 [facility] [id number] Univers 08:30:00 08:30:00 SANTIAGO barbosa of [facility] [place] [facility] 2020-07-14 2020-07-14 Outpatient R SELF, [facility] [id number] Univers 09:30:00 09:30:00 GADIEL barbosa o f [facility] [place] [facility] 2020-07-14 2020-07-14 Travel 1.2.840.1 1.2.569.028 3381 2575 Univers 00:00:00 00:00:00 83378.1.1 350.1.13.10 ity of 3.104.2.7 4.[place].7.3.698 [place] .3.320589 084.8 Medica l .8 [place] 2020-07-14 2020-07-14 Orders Doctor 1.2.840.7 [id number] [id number] 309 Univers 00:00:00 00:00:00 Only Unassigned, 60541.1.1 ity of [place] 3.104.2.7 [place] .3.891318 Medica l .8 [place] 2020-06-16 2020-06-16 Outpatient R [facility] [id number] Univers 08:00:00 08:00:00 GADIEL barbosa o f [facility] [place] [facility] 2020-06-06 2020-06-06 Telephone Ronald, 1.2.840.6 [id number] 809 [id number] Univers 00:00:00 00:00:00 Santiago 11420.1.1 ity of 3.104.2.7 [place] .3.553355 Medica l .8 [place] 2020-06-04 2020-06-04 Machine Set Up RonaldSantiago 1.2.840.1 9022136 316 [id number] Univers 09:31:58 09:40:12 Visit [facility] 47848.1.1 ity of 3.104.2.7 [place] .3.569331 Medica l .8 [place] 2020-06-04 2020-06-04 Office [facility] 1.2.215.705 9079 9729 Univers 08:13:41 09:28:25 Visit Santiago [facility] 350.1.13.10 i ty of CL[place]ICS 4[place].2.[place] 641.8[address] [facility] porfirio 089 [place] 2020-06-04 2020-06-04 [facility] [id number] Univers 08:30:00 08:30:00 SANTIAGO barbosa of [facility] [place] [facility] 2020-06-04 2020-06-04 Orders Doctor 1.2.840.8 [id number] 079 Univers 00:00:00 00:00:00 Only Unassigned, 47603.1.1 ity of [place] 3.104.2.7 [place] .3.511083 Medica l .8 [place] 2020-05-19 2020-05-19 Telephone East, 1.2.840.8 [id number] 804 [id number] Univers 00:00:00 00:00:00 Santiago 29969.1.1 ity of 3.104.2.7 [place] .3.636023 Medica l .8 [place] 2020-04-24 2020-04-24 Telephone East, 1.2.840.4 [id number] 799 78867 Univers 00:00:00 00:00:00 Santiago 46626.1.1 ity of 3.104.2.7 [place] .3.571483 Medica l .8 [place] 2020-04-14 2020-04-14 Outpatient R EAST, [facility] [id number] Univers 09:00:00 09:00:00 SANTIAGO ity of [facility] [place] [facility] 2020-04-14 2020-04-14 Telephone East, 1.2.840.2 [id number] 797 [id number] Univers 00:00:00 00:00:00 Santiago 49218.1.1 ity of 3.104.2.7 [place] .3.996783 Medica l .8 [place] 2020-03-31 2020-03-31 Outpatient R EAST, [facility] [id number] Univers 08:30:00 08:30:00 SANTIAGO barbosa of [facility] [place] [facility] 2020-03-03 2020-03-03 Outpatient R SELF, [facility] [id number] Univers 08:00:00 08:00:00 GADIEL familia o f [facility] [place] [facility] 2020-03-03 2020-03-03 Outpatient R SELF, [facility] [id number] Univers 08:00:00 08:00:00 GADIEL barbosa o f [facility] [place] [facility] 2020-03-03 2020-03-03 Travel 1.2.840.1 1.2.208.192 5015 5480 Univers 00:00:00 00:00:00 73482.1.1 350.1.13.10 ity of 3.104.2.7 4.2.7.3.698 [place] .3.483768 084.8 Medica l .8 [place] 2020-02-06 2020-02-06 Telephone East, 1.2.840.0 [id number] 781 [id number] Univers 00:00:00 00:00:00 Santiago 03412.1.1 ity of 3.104.2.7 [place] .3.471574 Medica l .8 [place] 2020-01-26 2020-01-26 Emergency Caridda, 1.2.840.8 [id number] 779 06113 Univers 10:03:00 13:05:00 Cynise 12202.1.1 ity of 3.104.2.7 [place] .3.824573 Medica l .8 [place] 2020-01-26 2020-01-26 Travel 1.2.840.1 1.2.565.732 7600 0120 Univers 00:00:00 00:00:00 48479.1.1 350.1.13.10 ity of 3.104.2.7 4.2.7.3.698 [place] .3.741628 084.8 Medica l .8 [place] 2020-01-25 2020-01-25 Outpatient R [facility] [id number] Univers 08:30:00 08:30:00 SANTIAGO ity of [facility] [place] [facility] 2020-01-25 2020-01-25 Telemedici East, 1.2.840.6 [id number] Univers 07:36:49 08:06:49 ne Visit Santiago 31823.1.1 ity of 3.104.2.7 [place] .3.170167 Medica l .8 [place] 2020-01-16 2020-01-16 [facility] [id number] Univers 08:00:00 08:00:00 SANTIAGO ity of [facility] [place] [facility] 2020-01-16 2020-01-16 Telephone East, 1.2.840.9 [id number] Univers 00:00:00 00:00:00 Santiago 83474.1.1 ity of 3.104.2.7 [place] .3.613442 Medica l .8 [place] 2020-01-14 2020-01-14 Outpatient R SELF, [facility] [id number] Univers 08:00:00 08:00:00 GADIEL rodas [facility] [place] [facility] 2019-12-31 2019-12-31 Outpatient R SELF, [facility] [id number] Univers 08:45:00 08:45:00 GADIEL rodas [facility] [place] [facility] 2019-10-17 2019-10-17 Outpatient R EAST, [facility] [id number] Univers 08:30:00 08:30:00 SANTIAGO ity [facility] 2019-10-12 2019-10-12 Outpatient R EAST, [facility] [id number] Univers 13:00:00 13:00:00 SANTIAGO itcharlie [facility] 2019-10-12 2019-10-12 Telemedici East, 1.2.840.7 [id number] Univers 07:38:30 08:08:30 ne Visit Santiago 44877.1.1 ity of 3.104.2.7 [place] .3.258283 Medica l .8 [place] 2019-10-08 2019-10-08 Outpatient R SELF, [facility] [id number] Univers 10:15:00 10:15:00 GADIEL rodas [facility] [place] [facility] 2019-10-03 2019-10-03 Case Assman, 1.2.840.3 [id number] Univers 00:00:00 00:00:00 Management Michael Corbin 27988.1.1 i ty of 3.104.2.7 [place] .3.377269 Medica l .8 [place] 2019-09-27 2019-09-27 Telephone East, 1.2.840.1 [id number] 755 [id number] Univers 00:00:00 00:00:00 Santiago 16998.1.1 ity of 3.104.2.7 [place] .3.468070 Medica l .8 [place] 2019-09-04 2019-09-04 Refill East, 1.2.840.3 [id number] Univers 00:00:00 00:00:00 Santiago 72578.1.1 ity of 3.104.2.7 [place] .3.618942 Medica l .8 [place] 2019-07-24 2019-07-24 Outpatient R EAST, [facility] [id number] Univers 08:30:00 08:30:00 [place] itcharlie [facility] 2019-07-17 2019-07-17 [facility] [id number] Univers 10:00:00 10:00:00 [place] itcharlie [facility] 2019-06-15 2019-06-15 Telephone Ronald, 1.2.840.5 [id number] Univers 00:00:00 00:00:00 [place] 61400.1.1 ity of 3.104.2.7 [place] .3.730804 Medica l .8 [place] 2019-06-13 2019-06-13 Telephone Team, [facility] 1.2.840.1 [id number] Univers 00:00:00 00:00:00 Health 02742.1.1 [place] .3.[place] 2019-05-10 2019-05-10 Refill Ronald, 1.2.840.6 [id number] Univers 00:00:00 00:00:00 [place] 85357.1.1 ity of 3.104.2.7 [place] .3.315088 Medica l .8 [place] 2019-05-09 2019-05-09 Refill Ronald, 1.2.840.4 [id number] Univers 00:00:00 00:00:00 [place] 73651.1.1 ity of 3.104.2.7 [place] .3.499334 Medica l .8 [place] 2019-04-30 2019-04-30 Outpatient R RODO [facility] [id number] Univers 10:15:00 10:33:05 GADIEL barbosa o f [facility] [place] [facility] 2019-04-18 2019-04-18 Machine Set Up [place] Cardenas 1.2.840.1 [id number] Univers 10:00:39 10:44:31 Visit [facility] 36110.1.1 ity of 3.104.2.7 [place] .3.112721 Medica l .8 [place] 2019-04-18 2019-04-18 [facility] [id number] Univers 10:00:00 10:44:31 [place] ity of [facility] [place] [facility] 2019-04-18 2019-04-18 Office East, 1.2.840.8 [id number] Univers 08:27:44 09:53:27 Visit Santiago 48000.1.1 ity of 3.104.2.7 [place] .3.990886 Medica l .8 [place] 2019-04-18 2019-04-18 Orders Doctor 1.2.840.0 [id number] Univers 00:00:00 00:00:00 Only Unassigned, 67093.1.1 ity of [place] 3.104.2.7 [place] .3.592232 Medica l .8 [place] 2019-04-11 2019-04-11 Refill [place], 1.2.840.8 [id number] Univers 00:00:00 00:00:00 [place] 91309.1.1 ity of 3.104.2.7 [place] .3.725985 Medica l .8 [place] 2019-04-09 2019-04-09 Refill [place], 1.2.840.8 [id number] Univers 00:00:00 00:00:00 [place] 64453.1.1 ity of 3.104.2.7 [place] .3.088188 Medica l .8 [place] 2019-04-03 2019-04-03 Telephone Team, [facility] 1.2.840.6 [id number] Univers 00:00:00 00:00:00 Health 58460.1.1 [place] .3.0[place]99 [place] .8 [place] 2019-03-27 2019-03-27 Telephone Self, 1.2.840.0 [id number] Univers 00:00:00 00:00:00 Gadiel 32908.1.1 ity of 3.104.2.7 [place] .3.324934 Medica l .8 [place] 2019-01-17 2019-01-17 Office East, 1.2.840.4 [id number] Univers 07:37:21 10:32:51 Visit Santiago 07056.1.1 ity of 3.104.2.7 [place] .3.912006 Medica l .8 [facility] 2019-01-04 2019-01-12 Office Eveline Hansen 1.2.840.2 [id number] Univers 11:19:32 11:08:05 Visit Mariela 73260.1.1 ity of 3.104.2.7 [place] .3.111683 Medica l .8 [facility] 2019-01-10 2019-01-10 Telephone Stanislav, 1.2.840.9 [id number] Univers 00:00:00 00:00:00 Eladio Inman 78926.1.1 ity of 3.104.2.7 [place] .3.390612 Medica l .8 [facility] 2018-12-18 2018-12-18 Office Geraldine, 1.2.840.5 [id number] Univers 08:48:45 09:13:43 Visit Leyda 01527.1.1 it y of 3.104.2.7 [place] .3.688458 Medica l .8 [facility] 2018-10-30 2018-10-30 Telephone East, 1.2.840.4 [id number] Univers 00:00:00 00:00:00 [place] 23172.1.1 ity of 3.104.2.7 [place] .3.532173 Medica l .8 [facility] 2018-10-23 2018-10-23 Orders Doctor 1.2.840.1 [id number] Univers 00:00:00 00:00:00 Only Unassigned, 30179.1.1 ity of [place] 3.104.2.7 [place] .3.991042 Medica l .8 [facility] 2018-10-23 2018-10-23 Nurse Selvin, 1.2.840.1 [id number] Univers 00:00:00 00:00:00 Triage Stefanie 78811.1.1 ity of 3.104.2.7 [place] .3.004550 Medica l .8 [facility] 2018-10-23 2018-10-23 Telephone Self, 1.2.840.2 [id number] Univers 00:00:00 00:00:00 Gadiel 89690.1.1 ity of 3.104.2.7 [place] .3.799522 Medica l .8 [facility] 2018-10-20 2018-10-20 Telephone Self, 1.2.840.0 [id number] Univers 00:00:00 00:00:00 Gadiel 30461.1.1 ity of 3.104.2.7 [place] .3.404214 Medica l .8 [facility] Results Test Description Test Time Test Comments Results Result Comments Source COMP. METABOLIC PANEL (67426) 2022-05-06 22:42:55 Test Item Value Reference Range Interpretation Comme nts NA (test code = 7565686802) 137 mmol/L 135-145 K (test code = 7212539518) 3.2 mmol/L 3.5-5.0 L CL (test code = 7085574627) 100 mmol/L 98-108 CO2 TOTAL (test code = 8077752935) 23 mmol/L 23-31 AGAP (test code = 0721723662) 2-16 BUN (test code = 5171869898) 41 mg/dL 7-23 H GLUCOSE (test code = 8606968767) 98 mg/dL 70-110 CREATININE (test code = 1.55 mg/dL 0.50-1.04 H 2217412002) TOTAL BILI (test code = 0.8 mg/dL 0.1-1.5 4879462364) CALCIUM (test code = 8396591884) 8.3 mg/dL 8.6-10.6 L T PROTEIN (test code = 9009864148) 6.9 g/dL 6.3-8.2 ALBUMIN (test code = 6184745984) 3.9 g/dL 3.5-5.0 ALK PHOS (test code = 0028239297) 89 U/L 34-122 ALTv (test code = 1742-6) 101 U/L 5-35 H AST(SGOT) (test code = 6275596639) 203 U/L 13-40 H eGFR (test code = 9667016199) mL/min/1.73m2 KYLE (test code = KYLE) Association [...] tests). Lab Interpretation (test code = Abnormal 47644-2) [facility] WITH [id number] 22:33:52 Test Item Value Reference Range Interpretation Comments WBC (test code = See_Comment L [Automated 1093-2) message] The sy stem which generated this result transmitted reference range : 4.30 - 11.10 10*3/?L. The reference range was not used to interpret this result as normal/abnormal . RBC (test code = See_Comment [Automated 499-8) message] The sy stem which generated this [...] RDW-SD (test code = 46.3 fL 39.0-49.9 41628-3) RDW-CV (test code = 13.5 % 12.0-15.5 788-0) PLT (test code = See_Comment L [Automated 777-3) message] The sy stem which generated this result transmitted reference range : 166 - 358 10*3/ ?L. The reference r abbey was not used to interpret this result as normal/abnormal . MPV (test code = 9.5 fL 9.5-12.9 97569-3) NRBC/100 WBC (test See_Comment [Automat ed code = 2785239372) message] The system which generated this result transmitted reference range : 0.0 - 10.0 /100 WBCs. The refer ence range was not u sed to interpret th is result as normal/abnormal . NRBC x10^3 (test code See_Comment [Auto mated = 7799510830) message] The s ystem which generated this result transmitted reference range : 10*3/?L. The reference range was not used to interpret this result as normal/abnormal . GRAN MAT (NEUT) % 58.3 % (test code = 770-8) IMM GRAN % (test code 0.80 % = 9601069031) LYMPH % (test code = 28.1 % 736-9) MONO % (test code = 12.0 % 5905-5) EOS % (test code = 0.5 % 713-8) BASO % (test code = 0.3 % 706-2) GRAN MAT x10^3(ANC) 2.29 10*3/uL 1.88-7.09 (test code = 7102350453) IMM GRAN x10^3 (test 0.03 10*3/uL 0.00-0.06 code = 1136243914) LYMPH x10^3 (test code 1.10 10*3/uL 1.32-3.29 L = 731-0) MONO x10^3 (test code 0.47 10*3/uL 0.33-0.92 = 742-7) EOS x10^3 (test code = 0.03-0.39 L 711-2) BASO x10^3 (test code 0.01-0.07 = 704-7) Lab Interpretation Abnormal (test code = 44207-8) [facility] METABOLIC PANEL (NA, K, CL, CO2, GLUCOSE, BUN, CREATININE, CA)2022-04-22 21:43:42 Test Item Value Reference Range Interpretation Comments NA (test code = 142 mmol/L 135-145 8968970739) K (test code = 3.5 mmol/L 3.5-5.0 5157790073) CL (test code = 106 mmol/L 98-108 4601465239) CO2 TOTAL (test code = 26 mmol/L 23-31 7884138490) AGAP (test code = 2-16 1322255832) BUN (test code = 29 mg/dL 7-23 H 1851441246) GLUCOSE (test code = 84 mg/dL 70-110 9408487364) CREATININE (test code = 1.16 mg/dL 0.50-1.04 H 0139414764) CALCIUM (test code = 8.2 mg/dL 8.6-10.6 L 8191458053) eGFR (test code = mL/min/1.73m2 7991574675) KYLE (test code = KYLE) Association of [...] tests). Lab Interpretation Abnormal (test code = 31881-4) [facility] WITH [id number] 21:33:01 Test Item Value Reference Range Interpretation [...] (test code = 50.7 fL 39.0-49.9 H 53841-5) RDW-CV (test code = 14.6 % 12.0-15.5 788-0) PLT (test code = See_Comment L [Automated 777-3) message] The sy stem which generated this result transmitted reference range : 166 - 358 10*3/ ?L. The reference r abbey was not used to interpret this result as normal/abnormal . MPV (test code = 8.8 fL 9.5-12.9 L 47978-5) NRBC/100 WBC (test See_Comment [Automat ed code = 1373420632) message] The system which generated this result transmitted reference range : 0.0 - 10.0 /100 WBCs. The refer ence range was not u sed to interpret th is result as normal/abnormal . NRBC x10^3 (test code See_Comment [Auto mated = 3980881825) message] The s ystem which generated this result transmitted reference range : 10*3/?L. The reference range was not used to interpret this result as normal/abnormal . GRAN MAT (NEUT) % 70.9 % (test code = 770-8) IMM GRAN % (test code 0.50 % = 3062860960) LYMPH % (test code = 17.4 % 736-9) MONO % (test code = 9.0 % 5905-5) EOS % (test code = 1.7 % 713-8) BASO % (test code = 0.5 % 706-2) GRAN MAT x10^3(ANC) 4.60 10*3/uL 1.88-7.09 (test code = 1790564683) IMM GRAN x10^3 (test 0.03 10*3/uL 0.00-0.06 code = 4065906959) LYMPH x10^3 (test code 1.13 10*3/uL 1.32-3.29 L = 731-0) MONO x10^3 (test code 0.58 10*3/uL 0.33-0.92 = 742-7) EOS x10^3 (test code = 0.11 10*3/uL 0.03-0.39 711-2) BASO x10^3 (test code 0.03 10*3/uL 0.01-0.07 = 704-7) Lab Interpretation Abnormal (test code = 43018-1) [id number]07 Test Item Value Reference Range Interpretation Comments Blood Culture-Aerobic No organisms No growth Previo us (test code = 61494-4) isolated prelim inary verified result was Culture [...] Culture-Anaerobic isolated preliminar y (test code = 04535-0) verifi ed result was Culture In Progress [...] CDT Lab Interpretation Normal (test code = 90528-0) [facility] CULTURE [id number] 06:01:07 Test Item Value Reference Range Interpretation Comments Blood Culture-Aerobic No organisms No growth Previo us (test code = 49297-9) isolated prelim inary verified result was Culture [...] Culture-Anaerobic isolated preliminar y (test code = 75598-3) verifi ed result was Culture In Progress [...] CDT Lab Interpretation Normal (test code = 75739-7) [facility] CULTURE [id number] 06:01:07 Test Item Value Reference Range Interpretation Comments Blood Culture-Aerobic No organisms No growth Previo us (test code = 08259-7) isolated prelim inary verified result was Culture [...] Culture-Anaerobic isolated preliminar y (test code = 63982-6) verifi ed result was Culture In Progress [...] CDT Lab Interpretation Normal (test code = 01507-1) [facility] [id number] 10:49:10 Test Item Value Reference Range Interpretation Comments NT-proBNP (test code 2660 pg/mL See_Comment H [Autom ated = 2397580029) message] The system which generated this result transmitted reference range : <=125. The reference range was not used to interpret this result as normal/abnormal . KYLE (test code = KYLE) Biotin has been reported to cause a negative bias, interpret results relative to patient's use of biotin. Lab Interpretation Abnormal (test code = 57663-9) [facility] [id number] 10:49:10 Test Item Value Reference Range Interpretation Comments NT-proBNP (test code 2660 pg/mL See_Comment H [Autom ated = 7943066275) message] The system which generated this result transmitted reference range : <=125. The reference range was not used to interpret this result as normal/abnormal . KYLE (test code = KYLE) Biotin has been reported to cause a negative bias, interpret results relative to patient's use of biotin. Lab Interpretation Abnormal (test code = 76011-1) [facility] METABOLIC PANEL (NA, K, CL, CO2, GLUCOSE, BUN, CREATININE, CA)2022-02-15 10:44:07 Test Item Value Reference Range Interpretation Comments NA (test code = 134 mmol/L 135-145 L 1266915864) K (test code = 3.2 mmol/L 3.5-5 L 4281761014) CL (test code = 98 mmol/L 98-108 1426095303) CO2 TOTAL (test code = 27 mmol/L 23-31 6714549489) AGAP (test code = 2-16 0386668668) BUN (test code = 19 mg/dL 7-23 0005275236) GLUCOSE (test code = 102 mg/dL 70-110 9750167515) CREATININE (test code = 0.95 mg/dL 0.5-1.04 3051527188) CALCIUM (test code = 8.5 mg/dL 8.6-10.6 L 5897776839) eGFR (test code = mL/min/1.73m2 2207190774) KYLE (test code = KYLE) Association of [...] tests). Lab Interpretation Abnormal (test code = 01465-3) [facility] Test Item Value Reference Range Interpretation Comments MAGNESIUM (test code = 8211198017) 1.8 mg/dL 1.7-2.4 Lab Interpretation (test code = Normal 19754-6) [facility] 10:44:07 Test Item Value Reference Range Interpretation Comments MAGNESIUM (test code = 5220458023) 1.8 mg/dL 1.7-2.4 Lab Interpretation (test code = Normal 28801-7) [facility] METABOLIC PANEL (NA, K, CL, CO2, GLUCOSE, BUN, CREATININE, CA)2022-02-15 10:44:07 Test Item Value Reference Range Interpretation Comments NA (test code = 134 mmol/L 135-145 L 0882806870) K (test code = 3.2 mmol/L 3.5-5.0 L 6032241237) CL (test code = 98 mmol/L 98-108 8281146026) CO2 TOTAL (test code = 27 mmol/L 23-31 7450898199) AGAP (test code = 2-16 1589391961) BUN (test code = 19 mg/dL 7-23 5571878243) GLUCOSE (test code = 102 mg/dL 70-110 6774228946) CREATININE (test code = 0.95 mg/dL 0.50-1.04 3204291864) CALCIUM (test code = 8.5 mg/dL 8.6-10.6 L 1003427525) eGFR (test code = mL/min/1.73m2 3194373194) KYLE (test code = KYLE) Association of [...] tests). Lab Interpretation Abnormal (test code = 26413-9) [facility] WITH [id number] 10:12:06 Test Item Value Reference Range Interpretation [...] RDW-SD (test code = 47.8 fL 39-49.9 22040-1) RDW-CV (test code = 15.2 % 12-15.5 788-0) PLT (test code = See_Comment L [Automated 777-3) message] The sy stem which generated this result transmitted reference range : 166 - 358 10*3/ ?L. The reference r abbey was not used to interpret this result as normal/abnormal . MPV (test code = 8.9 fL 9.5-12.9 L 95423-8) NRBC/100 WBC (test See_Comment [Automat ed code = 0117850404) message] The system which generated this result transmitted reference range : 0.0 - 10.0 /100 WBCs. The refer ence range was not u sed to interpret th is result as normal/abnormal . NRBC x10^3 (test code See_Comment [Auto mated = 3600158543) message] The s ystem which generated this result transmitted reference range : 10*3/?L. The reference range was not used to interpret this result as normal/abnormal . GRAN MAT (NEUT) % 65.9 % (test code = 770-8) IMM GRAN % (test code 0.30 % = 4458382230) LYMPH % (test code = 21.0 % 736-9) MONO % (test code = 10.1 % 5905-5) EOS % (test code = 2.4 % 713-8) BASO % (test code = 0.3 % 706-2) GRAN MAT x10^3(ANC) 2.49 10*3/uL 1.88-7.09 (test code = 2629585943) IMM GRAN x10^3 (test 0-0.06 code = 6711809217) LYMPH x10^3 (test code 0.79 10*3/uL 1.32-3.29 L = 731-0) MONO x10^3 (test code 0.38 10*3/uL 0.33-0.92 = 742-7) EOS x10^3 (test code = 0.09 10*3/uL 0.03-0.39 711-2) BASO x10^3 (test code 0.01-0.07 = 704-7) Lab Interpretation Abnormal (test code = 67070-6) [facility] WITH [id number] 10:12:06 Test Item Value Reference Range Interpretation [...] RDW-SD (test code = 47.8 fL 39.0-49.9 66988-3) RDW-CV (test code = 15.2 % 12.0-15.5 788-0) PLT (test code = See_Comment L [Automated 777-3) message] The sy stem which generated this result transmitted reference range : 166 - 358 10*3/ ?L. The reference r abbey was not used to interpret this result as normal/abnormal . MPV (test code = 8.9 fL 9.5-12.9 L 34265-0) NRBC/100 WBC (test See_Comment [Automat ed code = 7783891907) message] The system which generated this result transmitted reference range : 0.0 - 10.0 /100 WBCs. The refer ence range was not u sed to interpret th is result as normal/abnormal . NRBC x10^3 (test code See_Comment [Auto mated = 3254026067) message] The s ystem which generated this result transmitted reference range : 10*3/?L. The reference range was not used to interpret this result as normal/abnormal . GRAN MAT (NEUT) % 65.9 % (test code = 770-8) IMM GRAN % (test code 0.30 % = 7268847828) LYMPH % (test code = 21.0 % 736-9) MONO % (test code = 10.1 % 5905-5) EOS % (test code = 2.4 % 713-8) BASO % (test code = 0.3 % 706-2) GRAN MAT x10^3(ANC) 2.49 10*3/uL 1.88-7.09 (test code = 8458510466) IMM GRAN x10^3 (test 0.00-0.06 code = 1925634066) LYMPH x10^3 (test code 0.79 10*3/uL 1.32-3.29 L = 731-0) MONO x10^3 (test code 0.38 10*3/uL 0.33-0.92 = 742-7) EOS x10^3 (test code = 0.09 10*3/uL 0.03-0.39 711-2) BASO x10^3 (test code 0.01-0.07 = 704-7) Lab Interpretation Abnormal (test code = 40502-4) [facility] WITH [id number] 11:18:28 Test Item Value Reference Range Interpretation [...] RDW-SD (test code = 49.5 fL 39-49.9 30068-9) RDW-CV (test code = 15.5 % 12-15.5 788-0) PLT (test code = See_Comment L [Automated 777-3) message] The sy stem which generated this result transmitted reference range : 166 - 358 10*3/ ?L. The reference r abbey was not used to interpret this result as normal/abnormal . MPV (test code = 11.4 fL 9.5-12.9 25332-5) IPF % (test code = 8.7 % 1.3-7.7 H Platelet count 7411571725) measured by fluorescence method. NRBC/100 WBC (test See_Comment [Automat ed code = 8003777188) message] The system which generated this result transmitted reference range : 0.0 - 10.0 /100 WBCs. The refer ence range was not u sed to interpret th is result as normal/abnormal . NRBC x10^3 (test code See_Comment [Auto mated = 9794715978) message] The s ystem which generated this result transmitted reference range : 10*3/?L. The reference range was not used to interpret this result as normal/abnormal . GRAN MAT (NEUT) % 62.0 % (test code = 770-8) IMM GRAN % (test code 0.80 % = 8179645338) LYMPH % (test code = 22.2 % 736-9) MONO % (test code = 9.6 % 5905-5) EOS % (test code = 5.1 % 713-8) BASO % (test code = 0.3 % 706-2) GRAN MAT x10^3(ANC) 2.21 10*3/uL 1.88-7.09 (test code = 8332655682) IMM GRAN x10^3 (test 0.03 10*3/uL 0-0.06 code = 6128613278) LYMPH x10^3 (test code 0.79 10*3/uL 1.32-3.29 L = 731-0) MONO x10^3 (test code 0.34 10*3/uL 0.33-0.92 = 742-7) EOS x10^3 (test code = 0.18 10*3/uL 0.03-0.39 711-2) BASO x10^3 (test code 0.01-0.07 = 704-7) POLYCHROMASIA (test 2+ See_Comment [Automa arpit code = 23949-6) message] The system which generated this result [...] . Lab Interpretation Abnormal (test code = 88908-5) [facility] METABOLIC PANEL (NA, K, CL, CO2, GLUCOSE, BUN, CREATININE, CA)2022-02-13 10:39:07 Test Item Value Reference Range Interpretation Comments NA (test code = 136 mmol/L 135-145 8286782702) K (test code = 4.1 mmol/L 3.5-5 0356948142) CL (test code = 102 mmol/L 98-108 6289235627) CO2 TOTAL (test code = 27 mmol/L 23-31 6184181000) AGAP (test code = 2-16 7179073503) BUN (test code = 22 mg/dL 7-23 9227405219) GLUCOSE (test code = 94 mg/dL 70-110 9468884600) CREATININE (test code = 0.94 mg/dL 0.5-1.04 0399245601) CALCIUM (test code = 8.1 mg/dL 8.6-10.6 L 6636027573) eGFR (test code = mL/min/1.73m2 7660078516) KYLE (test code = KYLE) Association of [...] tests). Lab Interpretation Abnormal (test code = 11018-8) [facility] 01:50:10 Test Item Value Reference Range Interpretation Comments Height (test code = in 3744264056) Weight (test code = lbs 0987664702) Systolic BP (test code mmHg = 0964865192) Diastolic BP (test code mmHg = 3440762207) Heart Rate (test code = bpm 3077523525) BSA (test code = 1.85 m2 2050061864) IVS (test code = 1.22 cm 1863175681) Interventricular Septum 1.22 cm Diastolic Thickness by 2D (test code = 6110146) LVIDD (test code = 5.00 cm 4030658056) Left Ventricular End 117.9 mL Diastolic Volume by Teichholz Method (test code = 3068690) LVPWD (test code = 1.22 cm 0665816065) PW (test code = 1.22 cm 0.6-1.2 9354572860) EF(Teich) (test code = 74.60 % 7473818406) LVIDS (test code = 2.80 cm 0405744469) Left Ventricular End 29.9 mL Systolic Volume by Teichholz Method (test code = 2606958) FS (test code = 44 % 5669309012) EF - 2D (test code = 74.60 % 46860501) LVOT diameter (test 2.16 cm code = 4011779906) LVOT area (test code = 3.70 cm2 4809529719) Ao root diam (test code 3.40 cm = 1993630172) Aortic root (test code 3.4 cm = 7976355497) Ao root annulus (test 3.4 cm code = 3322392547) LA size (test code = 3.4 cm 8391247359) TR Peak Spencer (test code 330.0 cm/s = 9935054886) Triscuspid Valve mmHg Regurgitation Peak Gradient (test code = 8937472046) PV REGURGITATION PEAK mmHg GRADIENT (test code = 2630940710) PI dec slope (test code 137.20 cm/s2 = 4727805406) LAV(MOD-sp4) (test code 102.90 mL = 1298435215) MV Peak E Spencer (test 84.1 cm/s code = 9166915281) MV Peak A Spencer (test 40.1 cm/s code = 1678333520) E/A ratio (test code = ratio 6203694638) MV valve area p 1/2 3.70 cm2 method (test code = 7932873956) MV dec slope (test code 413.00 cm/s2 = 3742750461) MV P1/2t max spencer (test 83.70 cm/s code = 3968762604) MV Prop V (test code = 41.80 cm/s 2266176355) Tapse (test code = 1.83 cm 2304614150) LVOT stroke volume 96.90 cm3 (test code = 6550044759) LVOT peak spencer (test 125.5 cm/s code = 8123584845) LVOT mn grad (test code mmHg = 9709806804) AV LVOT peak gradient mmHg (test code = 4233644972) LVOT peak VTI (test 26.4 cm code = 5199344026) LV V1 mean (test code = 78.10 cm/s 1926719757) Aortic valve mean 103.7 cm/s velocity (test code = 8294780083) Ao peak spencer (test code 165.6 cm/s = 1467439823) Ao VTI (test code = 37.2 cm 5008066039) AV area by cont VTI 2.6 cm2 (test code = 1907210375) AV area peak spencer (test 2.8 cm2 code = 1405766207) Ao max PG (test code = 11.00 mm[Hg] 0300054773) AV peak gradient (test mmHg code = 5117555420) AV valve area (test 2.60 cm2 code = 5003030418) AV mean gradient (test mmHg code = 9570412061) LA Volume Index (BP) 55.2 mL/m2 (test code = 6376766886) LA volume (BP) (test 102.1 mL code = 1419272196) LAV(MOD-sp2) (test code 86.10 mL = 9762663501) A2C EF (test code = 61.20 % 9547860152) EF(sp2-el) (test code = 61.60 % 4231731871) SV(MOD-sp2) (test code 47.10 mL = 4849292570) LV Diastolic Volume 70.7 mL (BP) (test code = 8580311632) A4C EF (test code = 53.00 % 1466028779) EF(MOD-bp) (test code = 56.70 % 7634740063) EF(sp4-el) (test code = 53.90 % 1280972760) LV Systolic Volume (BP) 30.6 mL (test code = 5355501703) SV(MOD-bp) (test code = 40.10 mL 8500280501) SV(MOD-sp4) (test code 32.40 mL = 1079093790) SV(sp4-el) (test code = 33.10 mL 7066196707) EF (test code = 5280552254) Left Ventricular Stroke 40.1 mL Volume by 2-D Biplane-MOD (test code = 3211836) LV Diastolic Volume 38.2 mL/m2 Index (BP) (test code = 3611786936) LV Systolic Volume 16.5 mL/m2 Index (BP) (test code = 7758792295) Radiology Study observation (narrative) (test code = 42737-1) KYLE (test code = KYLE) ?Left?Ventricle: Left [...] 1.00The left ventricular wall motion is normal. [facility] [id number] 05:45:01 Test Item Value Reference Interpretation Comments Range TROPONIN I (test See_Comment [Automated code = 2736186496) message] The system which generated this result [...] biotin. Lab Interpretation Normal (test code = 32422-5) [facility] [id number] 05:41:40 Test Item Value Reference Range Interpretation Comments NT-proBNP (test code 4250 pg/mL See_Comment H [Autom ated = 4552103147) message] The system which generated this result transmitted reference range : <=125. The reference range was not used to interpret this result as normal/abnormal . KYLE (test code = KYLE) Biotin has been reported to cause a negative bias, interpret results relative to patient's use of biotin. Lab Interpretation Abnormal (test code = 21130-2) [facility] [id number] 05:35:21 Test Item Value Reference Range Interpretation Comments APTT Patient (test See_Comment [Automat ed code = 3173-2) message] The system which generated this result transmitted reference range : 23 - 38 Seconds . The reference range was not used to interpr et this result as normal/abnormal . KYLE (test code = KYLE) The [facility] patient population mean normal value for aPTT is 30 seconds. Lab Interpretation Normal (test code = 46844-6) [facility] [id number] 05:35:21 Test Item Value Reference Range Interpretation Comments APTT Patient (test See_Comment [Automat ed code = 3173-2) message] The system which generated this result transmitted reference range : 23 - 38 Seconds . The reference range was not used to interpr et this result as normal/abnormal . KYLE (test code = KYLE) The [facility] patient population mean normal value for aPTT is 30 seconds. Lab Interpretation Normal (test code = 81352-8) [facility] CenterPROTHROMBIN [facility] / [id number] 05:33:21 Test Item Value Reference Range Interpretation [...] tions. Lab Interpretation (test Normal code = 12487-1) [facility]OL[facility] ([id number])2022-02-11 05:33:21 Test Item Value Reference Range Interpretation Comments NA (test code = 137 mmol/L 135-145 2884021757) K (test code = 4.3 mmol/L 3.5-5 9075217049) CL (test code = 103 mmol/L 98-108 1397344726) CO2 TOTAL (test code = 25 mmol/L 23-31 1824930254) AGAP (test code = 2-16 6844771278) BUN (test code = 19 mg/dL 7-23 8024615044) GLUCOSE (test code = 120 mg/dL 70-110 H 9196342836) CREATININE (test code = 1.15 mg/dL 0.5-1.04 H 4620785158) TOTAL BILI (test code = 0.9 mg/dL 0.1-1.8 9199599211) CALCIUM (test code = 8.9 mg/dL 8.6-10.6 5305973465) T PROTEIN (test code = 6.6 g/dL 6.3-8.2 4940424228) ALBUMIN (test code = 4.0 g/dL 3.5-5 9151906688) ALK PHOS (test code = 73 U/L 34-122 6537915432) ALTv (test code = 18 U/L 5-35 1742-6) AST(SGOT) (test code = 31 U/L 13-40 3317390655) eGFR (test code = mL/min/1.73m2 9624600655) KYLE (test code = KYLE) Association of [...] tests). Lab Interpretation Abnormal (test code = 83537-4) [facility]. METABOLIC PANEL (68211)2022-02-11 05:33:21 Test Item Value Reference Range Interpretation Comments NA (test code = 137 mmol/L 135-145 4536878236) K (test code = 4.3 mmol/L 3.5-5.0 6914079478) CL (test code = 103 mmol/L 98-108 9876929762) CO2 TOTAL (test code = 25 mmol/L 23-31 0938496591) AGAP (test code = 2-16 5003238117) BUN (test code = 19 mg/dL 7-23 2789191083) GLUCOSE (test code = 120 mg/dL 70-110 H 7506220534) CREATININE (test code = 1.15 mg/dL 0.50-1.04 H 4650932263) TOTAL BILI (test code = 0.9 mg/dL 0.1-1.8 6227083084) CALCIUM (test code = 8.9 mg/dL 8.6-10.6 8898243502) T PROTEIN (test code = 6.6 g/dL 6.3-8.2 4632016047) ALBUMIN (test code = 4.0 g/dL 3.5-5.0 0723514666) ALK PHOS (test code = 73 U/L 34-122 4457851926) ALTv (test code = 18 U/L 5-35 2-6) AST(SGOT) (test code = 31 U/L 13-40 2745825579) eGFR (test code = mL/min/1.73m2 3832465168) KYLE (test code = KYLE) Association of [...] tests). Lab Interpretation Abnormal (test code = 03626-2) [facility]PROT[facility] / [id number] 05:33:21 Test Item Value Reference Range Interpretation [...] tions. Lab Interpretation (test Normal code = 11829-2) [facility] WITH [id number] 05:14:37 Test Item Value Reference Range Interpretation [...] RDW-SD (test code = 47.9 fL 39-49.9 54606-0) RDW-CV (test code = 14.9 % 12-15.5 788-0) PLT (test code = See_Comment L [Automated 777-3) message] The sy stem which generated this result transmitted reference range : 166 - 358 10*3/ ?L. The reference r abbey was not used to interpret this result as normal/abnormal . MPV (test code = 9.1 fL 9.5-12.9 L 34127-3) NRBC/100 WBC (test See_Comment [Automat ed code = [id number]) message] The system which generated this result transmitted reference range : 0.0 - 10.0 /100 WBCs. The refer ence range was not u sed to interpret th is result as normal/abnormal . NRBC x10^3 (test code See_Comment [Auto mated = [id number]) message] The s ystem which generated this result transmitted reference range : 10*3/?L. The reference range was not used to interpret this result as normal/abnormal . GRAN MAT (NEUT) % 78.5 % (test code = 770-8) IMM GRAN % (test code 0.20 % = [id number]) LYMPH % (test code = 11.6 % 736-9) MONO % (test code = 8.4 % 5905-5) EOS % (test code = 1.1 % 713-8) BASO % (test code = 0.2 % 706-2) GRAN MAT x10^3(ANC) 3.45 10*3/uL 1.88-7.09 (test code = [id number]) IMM GRAN x10^3 (test 0-0.06 code = [id number]) LYMPH x10^3 (test code 0.51 10*3/uL 1.32-3.29 L = 731-0) MONO x10^3 (test code 0.37 10*3/uL 0.33-0.92 = 742-7) EOS x10^3 (test code = 0.05 10*3/uL 0.03-0.39 711-2) BASO x10^3 (test code 0.01-0.07 = 704-7) Lab Interpretation Abnormal (test code = 89042-9) [facility] Coronavirus 2019 Iatwlph6292-76-09 18:08:00 Test Item Value Reference Range Interpretation [...] det ection of nucleic acids f rom zqfRBBE-IoB-8 v irus and diagnosis of SA RS-CoV-2 virusinfection. It is an Emergency Use Authorization ( EUA) testauthorized by the U.S. FDA. BASIC METABOLIC OLJEN1191-15-30 09:37:00 Test Item Value Reference Range Interpretation [...] = 9.0 mg/dL 8.0-10.5 N CA) PROTHROMBIN RJJI2276-92-23 09:32:00 Test Item Value Reference Range Interpretation [...] (to prevent recurrent infar ct). 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 - XR CHEST 1 S9593-19-94 00:00:00 [facility]: MARJAN FLEMING : 1955 Sex: F FAX: Carmenza Olivera DO [phone] [place]: St: ADM FAX: Mike Scales MD [phone] FAX: Bahman Chopra [phone] Name: MARJAN FLEMING [facility] : 1955 Age/S: 66/F [address] [place] [address] Unit #: [id number] Loc: [place] [address] Phys: Bahman Chopra [facility] Acct: [id number] Dis Date: Status: ADM IN PHONE #: [phone] Exam Date: 06/17/2021 1320 FAX #: [phone] Reason: WATCHMAN EXAMS: CPT CODE: [id number] XR CHEST 1 V 85377 PROCEDURE INFORMATION: Exam: XR Chest Exam date [...] Lund MD; Bahman Chopra Technologist: RT Taylor(Marika) Trndestinyrd Date/Time/By: 06/17/2021 (4164) : By: [email or web address] Orig Print D/T: S: 06/17/2021 (8802) PAGE 1 Signed ReportCOVID 19 Asymptomatic IH [...] high or waivedcomplexit y tests. BASIC METABOLIC [id number] 11:37:00 Test Item Value Reference Range Interpretation [...] code = 9.0 mg/dL 8.0-10.5 N CA) JYFLBQBREH3712-30-66 11:37:00 Test Item Value Reference Range Interpretation Comments PREALBUMIN (test code = PREALB) 24.3 mg/dL 16.0-40.0 N PROTHROMBIN BKKF9111-70-87 11:03:00 Test Item Value Reference Range Interpretation [...] (to prevent recurrent infar ct). CBC W/AUTO TSOX8121-00-56 10:59:00 Test Item Value Reference Range Interpretation [...] 0.0-0.1 N NRBC#) - XR CHEST 2 G3428-06-66 00:00:00 [facility] : 1955 Sex: F FAX: Carmenza Kelly [phone] [place]: St: PRE FAX: Mike Scales MD [phone] Name: MARJAN FLEMING [facility] [place] : 1955 Age/S: 66/F [address] [place] [address] Unit #: [id number] Loc: [place], [place] [address]Ahjt: Mike Lund MD Acct: [id number] Dis Date: Status: PRE [facility] PHONE #: [phone] Exam Date: 06/16/2021 112 FAX #: [phone] Reason: PREOP EXAMS: CPT CODE: [id number] XR CHEST 2 V 44597 PROCEDURE INFORMATION: Exam: XR Chest Exam date [...] Rahman DO; Mike Lund MD Technologist: Danielle NixRT(R) Trnscrd Date/Time/By: 06/16/2021 (5687) : By: [email or web address] Orig Print D/T: S: 06/16/2021 (6143)PAGE 1 Signed ReportGastrointestinal yxjto8756-16-92 04:35:05 Test Item Value Reference Interpretation Comments [...] Rotavirus PCR (test Not Detected code = 3450950) Salmonella PCR (test Not Detected code = [...] PCR Not Detected (test code = 7124) [facility] xmhwfqi1007-94-06 19:30:47 Test Item Value Reference Range Interpretation Comments Case number (test [id number] code = 2846592) Surgical pathology See link below for PDF report (test code = Lab Report 2255) Result status (test This is Supplemental code = 7699888) Report for [id number] [facility]2021-04-09 16:31:00 Test Item Value Reference Range Interpretation Comments POC Activated Clotting Time (test code 153 s = POC Activated Clotting Time) [facility]XjnbtwnTFJDMCBCWF3396-89-55 16:31:00 Test Item Value Reference Range Interpretation Comments POC Activated Clotting Time (test code 153 s = POC Activated Clotting Time) [facility]lineNfygnyqSLTPBSXWBO8331-49-80 16:31:00 Test Item Value Reference Range Interpretation Comments POC Activated Clotting Time (test code 153 s = POC Activated Clotting Time) [facility] ShorelineDhtpmgyLJMUSNVFLA1722-81-36 16:31:00 Test Item Value Reference Range Interpretation Comments POC Activated Clotting Time (test code 153 s = POC Activated Clotting Time) [facility] ShorelineVonykjoERYDHMOSHL9547-65-45 16:31:00 Test Item Value Reference Range Interpretation Comments POC Activated Clotting Time (test code 153 s = POC Activated Clotting Time) [facility]lineYszilqqMPZQKMEOSG8848-28-77 16:31:00 Test Item Value Reference Range Interpretation Comments POC Activated Clotting Time (test code 153 s = POC Activated Clotting Time) [facility] ShorelineMivczyhORNSYJNAOE2385-59-52 16:31:00 Test Item Value Reference Range Interpretation Comments POC Activated Clotting Time (test code 153 s = POC Activated Clotting Time) [facility]lineKcxcnvoFTHLFQMCAG9436-48-36 14:37:00 Test Item Value Reference Range Interpretation Comments POC Activated Clotting Time (test code 454 s = POC Activated Clotting Time) [facility] ShorelineTevaglwORDOQCUKIX4577-53-38 14:37:00 Test Item Value Reference Range Interpretation Comments POC Activated Clotting Time (test code 454 s = POC Activated Clotting Time) [facility] ShorelineIwlyrinGABVQHEAFC5235-42-19 14:37:00 Test Item Value Reference Range Interpretation Comments POC Activated Clotting Time (test code 454 s = POC Activated Clotting Time) [facility]lineUmsvjisMFZKCGUJDP1049-78-92 14:37:00 Test Item Value Reference Range Interpretation Comments POC Activated Clotting Time (test code 454 s = POC Activated Clotting Time) [facility] ShorelineBsccavvVXWKHNFDKC5507-51-26 14:37:00 Test Item Value Reference Range Interpretation Comments POC Activated Clotting Time (test code 454 s = POC Activated Clotting Time) [facility]lineIjmsznnXZXVURKUOT5475-08-62 14:37:00 Test Item Value Reference Range Interpretation Comments POC Activated Clotting Time (test code 454 s = POC Activated Clotting Time) [facility] ShorelineZwaqlleDZXCTVIHXJ6546-45-08 14:37:00 Test Item Value Reference Range Interpretation Comments POC Activated Clotting Time (test code 454 s = POC Activated Clotting Time) [facility] ShorelineBbkmasqDGAOTVFDSX1858-12-12 14:13:00 Test Item Value Reference Range Interpretation Comments POC Activated Clotting Time (test code 354 s = POC Activated Clotting Time) [facility]lineWfbkcqhVMYFVSQBJZ1524-52-22 14:13:00 Test Item Value Reference Range Interpretation Comments POC Activated Clotting Time (test code 354 s = POC Activated Clotting Time) [facility] ShorelineVdggodyPXCYKUYWEY2587-28-79 14:13:00 Test Item Value Reference Range Interpretation Comments POC Activated Clotting Time (test code 354 s = POC Activated Clotting Time) [facility] ShorelineIphnqppDWMXWTINWO3830-80-43 14:13:00 Test Item Value Reference Range Interpretation Comments POC Activated Clotting Time (test code 354 s = POC Activated Clotting Time) [facility] ShorelineNzcadhiAUSNBCREZY7573-24-06 14:13:00 Test Item Value Reference Range Interpretation Comments POC Activated Clotting Time (test code 354 s = POC Activated Clotting Time) [facility] ShorelineXeahgwzUFWBETWMVI1170-08-48 14:13:00 Test Item Value Reference Range Interpretation Comments POC Activated Clotting Time (test code 354 s = POC Activated Clotting Time) [facility] ShorelineGagkuelBTHUPECDHL4195-33-27 14:13:00 Test Item Value Reference Range Interpretation Comments POC Activated Clotting Time (test code 354 s = POC Activated Clotting Time) [facility] THLZRFH8471-71-82 10:37:00Negative (4/9/21 5:37 AM) [facility] NLSOH8148-33-66 10:37:29425Jrbymxlz HermannCHEM PANEL 2020-08-29 10:37:0028[facility]annCHEM UZHHC3565-11-07 10:37:001.01[facility]annCHEM JVSVL3893-51-82 10:37:80893Jzpndlmi [facility]annCHEM ZYKER4881-79-96 10:37:003.8[facility]annCHEM JKOKF0932-39-10 10:37:96747Pqxkvnkb HermannCHEM CKWPP9110-43-74 10:37:0028[facility]annCHEM FVSEV7190-19-05 10:37:009.8 [facility]annCHE[facility] NAXNI0159-46-60 10:37:0011.8[facility]annCHEM PANEL 2020-08-29 10:37:0059[facility]annCHEM CLTKA5180-92-51 10:37:002.9[facility] HtxekskUFLRUPEFRZ2560-85-28 10:37:006.8[facility] TldbbeqRFGMXONAYC8099-16-35 10:37:004.47[facility] LmwhbqgTXICODSUNC7402-60-07 10:37:0010.6[facility] IKIPDJYGOS0412-05-63 10:37:0034.0[facility] ZstozdePTYOIRJZOW3789-99-80 10:37:00 76.1[facility] RcflqqaTAHCMOQUHM6813-72-06 10:37:00 Test Item Value Reference Range Interpretation Comments MCH (test code = MCH) 23.8 pg 27.0-31.0 [facility] JeqywcvLXKSUIZOHI2282-52-79 10:37:0031.3[facility]annHEMATOLOGY 2020-08-29 10:37:0018.2[facility] StdthyuKSIHJZMADN6431-09-26 10:37:61672Pbabgluc CyizdqmPRIQKBXFCP4343-40-84 10:37:007.5[facility] JgjromaBJWRERQFLF1140-91-55 10:37:00 Test Item Value Reference Range Interpretation Comments PT (test code = PT) 12.8 s 12.0-14.7 [facility] QpfxlzjRNEVYFFCHU2343-08-48 10:37:00 Test Item Value Reference Range Interpretation Comments INR (test code = INR) 0.97 1 0.85-1.17 [facility] KbeblcfJLNNLGYPDN3188-32-46 10:37:00 Test Item Value Reference Range Interpretation Comments PTT (test code = PTT) 25.0 s 22.9-35.8 [facility] IyhbylmAZPOHAEWBQ5480-10-21 10:37:0070.5[facility] HermannHEMATOLOGY 2020-08-29 10:37:0018.8[facility] WwzmsbeGRMKUTFGLA1485-42-72 10:37:009.5[facility] VmfidtzFKGCLTNGJT3979-99-45 10:37:000.9[facility] ZbjdovvUYFTUMRDYE3447-52-98 10:37:000.3[facility] VoaccoxLFAPJXUQHI0436-33-25 10:37:004.8[facility] WXHBMJRMDI6968-54-43 10:37:001.3[facility] TebptwlPAVFESAGCX7376-40-07 10:37:000.6 [facility] VyxjjwvUSWWRAGHON3540-17-99 10:37:000.1[facility]annHEMATOLOGY 2020-08-29 10:37:001+ *ABN*(08/29/20 5:37 AM)[facility] WkcqoxfGNFDQHEEFC1572-67-58 10:37:00Not Detected (08/29/20 5:37 AM)[facility] HermannBLOOD BANK RESULTS 2020-08-29 10:37:00Negative (08/29/20 5:37 AM)[facility]annCHEM AUBAF3232-84-09 10:37:65826Sysissvz HermannCHEM LRCRX2977-86-83 10:37:0028[facility]annCHEM AYQVU8719-90-28 10:37:001.01[facility] HermannCHEM MWUCO3965-32-88 10:37:06634 [facility]CHE[facility] TQEPD7177-36-45 10:37:003.8[facility] HermannCHEM PANEL 2020-08-29 10:37:90810Ziprzqgm HermannCHEM ODNNU7780-03-29 10:37:0028[facility]annCHEM HXQWD7748-44-31 10:37:009.8[facility]annCHEM SBPJQ1799-55-91 10:37:0011.8[facility]annCHEM QVWMH4745-20-40 10:37:0059[facility]annCHEM DLBEJ1400-77-65 10:37:002.9[facility] FzccuyiIUDANZLZVS2408-32-80 10:37:006.8 [facility] IxlwfnvCQSFCJPQBH4893-12-02 10:37:004.47[facility]annHEMATOLOGY 2020-08-29 10:37:0010.6[facility] WjmnywaEBAWMOORHR8796-44-81 10:37:0034.0[facility] DbfbwimTOMFEMDIVH4898-60-10 10:37:0076.1[facility] MogdmneWPGPBNSBJZ2316-20-79 10:37:00 Test Item Value Reference Range Interpretation Comments MCH (test code = MCH) 23.8 pg 27.0-31.0 [facility] AxrbzzdCSCLNMWBNP0779-56-34 10:37:0031.3[facility]annHEMATOLOGY 2020-08-29 10:37:0018.2[facility] BmfwcbbLXRURRALNS7190-89-14 10:37:77694Izdwpcte UuojfzyHKYWMCVTEQ9249-19-19 10:37:007.5[facility] NjiabjvYQOIWUEHMH8887-76-30 10:37:00 Test Item Value Reference Range Interpretation Comments PT (test code = PT) 12.8 s 12.0-14.7 [facility] JxfzgnlQDTHAZTAUZ9825-89-80 10:37:00 Test Item Value Reference Range Interpretation Comments INR (test code = INR) 0.97 1 0.85-1.17 [facility] HllmczbCEALVPVIYN2509-43-87 10:37:00 Test Item Value Reference Range Interpretation Comments PTT (test code = PTT) 25.0 s 22.9-35.8 [facility] IbmfyfzZZZZWSMURD0625-85-85 10:37:0070.5[facility]annHEMATOLOGY 2020-08-29 10:37:0018.8[facility] MwnsjihBXXAAWBLYO9120-11-18 10:37:009.5[facility] AvtqchtQBSOISZEOG4342-58-70 10:37:000.9[facility] QgjheiuZLBFJBCHWE0806-09-31 10:37:000.3[facility] KedflulODFZGVRDFD5258-97-26 10:37:004.8[facility] VKYDKOYJWS8659-21-89 10:37:001.3[facility] NghfjdcXLOPFNLSUW5669-56-41 10:37:000.6 [facility] MlcyjueKNDQKSAELF6371-24-74 10:37:000.1[facility]annHEMATOLOGY 2020-08-29 10:37:001+ *ABN*(08/29/20 5:37 AM)[facility] GerzfcjJUEODRHBHE9603-29-48 10:37:00Not Detected (08/29/20 5:37 AM)[facility]annBLOOD BANK RESULTS 2020-08-29 10:37:00Negative (08/29/20 5:37 AM)[facility]annCHEM FAWXZ1725-76-14 10:37:07691Ggoorrbs HermannCHEM XERLF1291-43-83 10:37:0028[facility] HermannCHEM UKAOA0516-71-51 10:37:001.01[facility] HermannCHEM IDRNH7843-19-94 10:37:56941 [facility]annCHE[facility] RDWRL2411-84-28 10:37:003.8[facility] HermannCHEM PANEL 2020-08-29 10:37:66336Xctsjpef HermannCHEM PPEOA5739-97-89 10:37:0028[facility] HermannCHEM ZSTAY5983-25-63 10:37:009.8[facility] HermannCHEM DROST7789-58-79 10:37:0011.8[facility] HermannCHEM QGCBU8178-33-46 10:37:0059[facility] HermannCHEM KNOXZ2959-41-76 10:37:002.9[facility] BdoufseRLIDJHVAVU8952-71-61 10:37:006.8 [facility] NnqrudiOJDNFWVAEW5974-34-33 10:37:004.47[facility]annHEMATOLOGY 2020-08-29 10:37:0010.6[facility] DvizcgmVUTANFHBZV3241-09-04 10:37:0034.0[facility] WcgpthiXJZDBIQWES8337-03-97 10:37:0076.1[facility] GydhuxfGWMSUPGRLO5843-00-57 10:37:00 Test Item Value Reference Range Interpretation Comments MCH (test code = MCH) 23.8 pg 27.0-31.0 [facility] XsluhhnLZNQSHSVNN5852-27-02 10:37:0031.3[facility] HermannHEMATOLOGY 2020-08-29 10:37:0018.2[facility] RdvswpeTWBTGRCDDD8087-90-21 10:37:50385Kcokgnhj UbswnqdKWCSQGKISB8176-12-32 10:37:007.5[facility] RfrfzcrZKZYZKHQWU6042-04-17 10:37:00 Test Item Value Reference Range Interpretation Comments PT (test code = PT) 12.8 s 12.0-14.7 [facility] IiwxqnqDNSUJOVAKW1553-38-24 10:37:00 Test Item Value Reference Range Interpretation Comments INR (test code = INR) 0.97 1 0.85-1.17 [facility] GtiodiiHWPCQPJDLE2292-40-74 10:37:00 Test Item Value Reference Range Interpretation Comments PTT (test code = PTT) 25.0 s 22.9-35.8 [facility] YjfrrwdDIHNCXKZXO0650-31-11 10:37:0070.5[facility] HermannHEMATOLOGY 2020-08-29 10:37:0018.8[facility] PssvmmnARXWUDDQEO8237-15-20 10:37:009.5[facility] JgezbpiWRLJISEOGS7682-34-65 10:37:000.9[facility] DvzzitfUOFDMHTSEX6912-94-77 10:37:000.3[facility] SwbficpEOJYERXDXW2870-66-49 10:37:004.8[facility] AYVWSGQVDC4990-13-63 10:37:001.3[facility] DcwfhdgGJQUDNAXRS1145-16-60 10:37:000.6 [facility] NvnryzkTJAXOBRGGQ3147-24-74 10:37:000.1[facility] HermannHEMATOLOGY 2020-08-29 10:37:001+ *ABN*(08/29/20 5:37 AM)[facility] TpdtdunQSSUSKIYNJ6232-74-34 10:37:00Not Detected (08/29/20 5:37 AM)[facility] HermannBLOOD BANK RESULTS 2020-08-29 10:37:00Negative (08/29/20 5:37 AM)[facility] HermannCHEM XXIRE6166-81-21 10:37:92548Yuigakmh HermannCHEM YTATI1338-86-81 10:37:0028[facility] HermannCHEM VABZC2224-99-86 10:37:001.01[facility] HermannCHEM SYWRS8331-79-66 10:37:10269 [facility]annCHEM QEVJU9154-93-71 10:37:003.8[facility] HermannCHEM PANEL 2020-08-29 10:37:12594Ainmoylt HermannCHEM MXLZX6426-28-18 10:37:0028[facility] HermannCHEM DRQAU0564-10-14 10:37:009.8[facility] HermannCHEM ATYLG2942-41-99 10:37:0011.8[facility] HermannCHEM NGQUL7500-24-08 10:37:0059[facility] HermannCHEM DRSCD0179-72-66 10:37:002.9[facility] GmxihjzOOFHRPKZBG6269-35-51 10:37:006.8 [facility] EyczilsODHOSNPPMR7961-64-11 10:37:004.47[facility] HermannHEMATOLOGY 2020-08-29 10:37:0010.6[facility] RjcvotvJRVAQNFFKM3800-21-40 10:37:0034.0[facility] MpyngcmSZGDBSSPUL3585-71-40 10:37:0076.1[facility] XneknpcCSTPIQMFKT6570-93-62 10:37:00 Test Item Value Reference Range Interpretation Comments MCH (test code = MCH) 23.8 pg 27.0-31.0 [facility] XwtyyytBQTCIPSOWF2885-23-02 10:37:0031.3[facility] HermannHEMATOLOGY 2020-08-29 10:37:0018.2[facility] TykjyzlENPHATHXYN1395-17-74 10:37:97458Plbptwpo NkxfajeYQEAFVTSTV3763-92-35 10:37:007.5[facility] EhkbhxbGYEDJLPXLN5912-22-77 10:37:00 Test Item Value Reference Range Interpretation Comments PT (test code = PT) 12.8 s 12.0-14.7 [facility] DefhmxoIGPOATVIBX0474-84-99 10:37:00 Test Item Value Reference Range Interpretation Comments INR (test code = INR) 0.97 1 0.85-1.17 [facility] DjgebzoATHHKGCEGF8799-88-48 10:37:00 Test Item Value Reference Range Interpretation Comments PTT (test code = PTT) 25.0 s 22.9-35.8 [facility] JeobvgtEFBZCUFGKR3948-62-66 10:37:0070.5[facility] HermannHEMATOLOGY 2020-08-29 10:37:0018.8[facility] TxdfiyhTWZDCEYWZH3016-57-68 10:37:009.5[facility] VfpihxuNCQGYWHTBP7299-08-51 10:37:000.9[facility] NumzcgdPNBTUIGVFN4359-92-76 10:37:000.3[facility] ZpbohhkIZMTQFHXNS0589-94-95 10:37:004.8[facility] TMVBXKGJSC7422-20-35 10:37:001.3[facility] XgfnrqvTLYVPZWJON2001-41-09 10:37:000.6 [facility] XlcjzkiYKBWJXPZKM1438-79-25 10:37:000.1[facility] HermannHEMATOLOGY 2020-08-29 10:37:001+ *ABN*(08/29/20 5:37 AM)[facility] OtmmitwQBAISKKXWI0283-45-53 10:37:00Not Detected (08/29/20 5:37 AM)[facility] HermannBLOOD BANK RESULTS 2020-08-29 10:37:00Negative (08/29/20 5:37 AM)[facility]annCHEM PJABN4225-10-53 10:37:88119Sqncglrh HermannCHEM FJLIJ0885-35-00 10:37:0028[facility]annCHEM TSRGR8160-42-49 10:37:001.01[facility] HermannCHEM HUEKD8432-74-67 10:37:39723 [facility]annCHE[facility] BPKXC9008-16-08 10:37:003.8[facility] HermannCHEM PANEL 2020-08-29 10:37:44404Fhhpfbrc HermannCHEM SQRKG4447-54-95 10:37:0028[facility] HermannCHEM JUZIH5110-05-59 10:37:009.8[facility] HermannCHEM EECFO0141-61-91 10:37:0011.8[facility] HermannCHEM CRFLR9209-62-16 10:37:0059[facility] HermannCHEM RCRHL1398-04-80 10:37:002.9[facility] DqbxcqbYFKDFJGYTU1345-98-32 10:37:006.8 [facility] DdmhabrQDCYQKBPCX6460-72-94 10:37:004.47[facility]annHEMATOLOGY 2020-08-29 10:37:0010.6[facility] BhttmlyTNPDNQZQUE1848-00-56 10:37:0034.0[facility] FvfpdtkWLECIJOVCY4318-28-13 10:37:0076.1[facility] UopqufdTPJWXEQSIC8244-96-47 10:37:00 Test Item Value Reference Range Interpretation Comments MCH (test code = MCH) 23.8 pg 27.0-31.0 [facility] PuqbsgfUIXJRJDSEI4651-71-70 10:37:0031.3[facility] HermannHEMATOLOGY 2020-08-29 10:37:0018.2[facility] TvqafngDEURVIJOZA8302-03-59 10:37:84924Gdmqawwi PnsuvbrSQPVEXGJQS1716-16-32 10:37:007.5[facility] BkucbptEUXAAREJJU6499-90-80 10:37:00 Test Item Value Reference Range Interpretation Comments PT (test code = PT) 12.8 s 12.0-14.7 [facility] QedgevsHSYVWBDPMW9964-27-86 10:37:00 Test Item Value Reference Range Interpretation Comments INR (test code = INR) 0.97 1 0.85-1.17 [facility] QsqarnrHGPINTPDIJ9774-08-22 10:37:00 Test Item Value Reference Range Interpretation Comments PTT (test code = PTT) 25.0 s 22.9-35.8 [facility] WmognyaAQWQMYNVUU5688-87-78 10:37:0070.5[facility] HermannHEMATOLOGY 2020-08-29 10:37:0018.8[facility] PackqaeXJHCWLDVKO9197-00-46 10:37:009.5[facility] CyenmugVSHNRLOJRH5373-18-53 10:37:000.9[facility] VvnankhLFWQIRDCNM1418-58-16 10:37:000.3[facility] NtglvzdCEFLWJSTZO2851-97-64 10:37:004.8[facility] WPMJHHTRXH0264-38-33 10:37:001.3[facility] WwlqjayVFMBKAGZXX4866-44-49 10:37:000.6 [facility] GlmuyobYDWJILAUVS1296-14-60 10:37:000.1[facility] HermannHEMATOLOGY 2020-08-29 10:37:001+ *ABN*(08/29/20 5:37 AM)[facility] KtegknzYXUJAAOLVF9638-42-76 10:37:00Not Detected (08/29/20 5:37 AM)[facility] HermannBLOOD BANK RESULTS 2020-08-29 10:37:00Negative (08/29/20 5:37 AM)[facility] HermannCHEM FPOBE1922-39-64 10:37:74694Pegldrng HermannCHEM QGYCQ9269-60-82 10:37:0028[facility] HermannCHEM VLMKZ3568-40-79 10:37:001.01[facility] HermannCHEM GYVCI3681-42-85 10:37:36476 [facility]annCHEM IZDPA3205-02-74 10:37:003.8[facility] HermannCHEM PANEL 2020-08-29 10:37:88240Lsirbqiz HermannCHEM YURUS9702-58-81 10:37:0028[facility] HermannCHEM DMTNZ9122-27-26 10:37:009.8[facility] HermannCHEM VZHEK7392-11-58 10:37:0011.8[facility] HermannCHEM FCSND9057-39-34 10:37:0059[facility] HermannCHEM TNEGT6313-65-24 10:37:002.9[facility] VtlplhyHREEGRSUGN0969-22-84 10:37:006.8 [facility] FbnqavoOSQLTBLFWO9346-22-26 10:37:004.47[facility]annHEMATOLOGY 2020-08-29 10:37:0010.6[facility] EonccuwXRCXNUHTXT7906-25-71 10:37:0034.0[facility] PufklbyEFJQEXTISK3926-26-60 10:37:0076.1[facility] PkvigxiBJTUNPGHTT1133-94-21 10:37:00 Test Item Value Reference Range Interpretation Comments MCH (test code = MCH) 23.8 pg 27.0-31.0 [facility] EnzttylKNXLOEMZWE2538-84-45 10:37:0031.3[facility]annHEMATOLOGY 2020-08-29 10:37:0018.2[facility] ZqvwqngSNEJVDPSTT8732-45-25 10:37:04715Gzqsgyvj UttkgmzHCXDBEKRUA5578-21-21 10:37:007.5[facility] PfjdwqlMDZGQZKJYJ5757-74-54 10:37:00 Test Item Value Reference Range Interpretation Comments PT (test code = PT) 12.8 s 12.0-14.7 [facility] NisciucUBGZDVBVNO9997-00-57 10:37:00 Test Item Value Reference Range Interpretation Comments INR (test code = INR) 0.97 1 0.85-1.17 [facility] OhijbzzLEKBHCIRJF0283-82-39 10:37:00 Test Item Value Reference Range Interpretation Comments PTT (test code = PTT) 25.0 s 22.9-35.8 [facility] XasxfbfTWNDDPATHF4805-41-57 10:37:0070.5[facility]annHEMATOLOGY 2020-08-29 10:37:0018.8[facility] SsvwaqxMDCSMFERYW9447-49-20 10:37:009.5[facility] AhanfkkIRZOTEMGTO0239-82-07 10:37:000.9[facility] XcgnrcwEGECUEUZFV9246-43-12 10:37:000.3[facility] OzkumsiGLJYAEWGXX4883-00-50 10:37:004.8[facility] ITGVWEFGYD5359-38-99 10:37:001.3[facility] RdvhwsiFQUMHXISFS1641-28-98 10:37:000.6 [facility] FduzqjyYHGYWFPOHC1935-40-28 10:37:000.1[facility]annHEMATOLOGY 2020-08-29 10:37:001+ *ABN*(08/29/20 5:37 AM)[facility] ZnreiloDVMCGEQGGR2497-68-19 10:37:00Not Detected (08/29/20 5:37 AM)[facility] RESULTS 2020-08-29 10:37:00Negative (08/29/20 5:37 AM)[facility]annCHE[facility] FMNXL7275-29-66 10:37:49924[place] [facility]annCHEM YXWTF9356-92-88 10:37:0028[facility]annCHEM QSENX1884-34-66 10:37:001.01[facility]annCHEM EAUQO1760-35-78 10:37:79374 [facility] VVXLK1007-31-52 10:37:003.8[facility]annCHEM PANEL 2020-08-29 10:37:33786Cueceqzy HermannCHEM XHAQF4825-18-11 10:37:0028[facility]annCHEM NJOTH6620-12-79 10:37:009.8[facility]annCHEM DTBFY9498-04-84 10:37:0011.8[facility]annCHEM GCAKR2929-96-18 10:37:0059[facility]annCHEM FQJVH7628-87-62 10:37:002.9[facility] SwpqwuoAIPFZGTVOT4457-12-29 10:37:006.8 [facility] EvbakjtYOPMQXWNHW9696-25-32 10:37:004.47[facility]annHEMATOLOGY 2020-08-29 10:37:0010.6[facility] WnxpdnaRHKRVCVGEO3758-95-72 10:37:0034.0[facility] ZxdjuefUWWKWAXYIA1605-44-65 10:37:0076.1[facility] GzvcudzMPJLWMMCMK0758-77-59 10:37:00 Test Item Value Reference Range Interpretation Comments MCH (test code = MCH) 23.8 pg 27.0-31.0 [facility] NpwlcaaFRTVMRGLLT6615-33-96 10:37:0031.3[facility]annHEMATOLOGY 2020-08-29 10:37:0018.2[facility] KrodzulQOJZZYPAPJ5637-77-66 10:37:96325Ivngwtqj ZrtyreiMQFBMQTUCZ0275-83-75 10:37:007.5[facility] DnhkyvuADKKRUDMEJ7101-34-59 10:37:00 Test Item Value Reference Range Interpretation Comments PT (test code = PT) 12.8 s 12.0-14.7 [facility] CkdairuBMBFMXJRZS3028-73-95 10:37:00 Test Item Value Reference Range Interpretation Comments INR (test code = INR) 0.97 1 0.85-1.17 [facility] DtxcaplCVNLJVNWBS0311-49-40 10:37:00 Test Item Value Reference Range Interpretation Comments PTT (test code = PTT) 25.0 s 22.9-35.8 [facility] TshbvjnBHUUIYSAIB7429-09-78 10:37:0070.5[facility]annHEMATOLOGY 2020-08-29 10:37:0018.8[facility] AynzfcoMMBMHUTKJO0861-01-74 10:37:009.5[facility] YyvhsufKUQRKARFQS9857-86-90 10:37:000.9[facility] LcgvgnnUGSPZXZDKB3271-34-94 10:37:000.3[facility] BpqgqzwRKOTXZAFIX0406-91-25 10:37:004.8[facility] [place] BYYBMALEVR9197-60-71 10:37:001.3[facility] JhxcarfMCKMNRMTNR4441-84-07 10:37:000.6 [facility] [id number] 10:37:000.1[facility]annHEMATOLOGY 2020-08-29 10:37:001+ *ABN*(08/29/20 5:37 AM)[facility] [id number] 10:37:00Not Detected (08/29/20 5:37 AM)[facility] IrvingannCHLAMYDIA, GC, TV,PCR, IN [id number] 15:38:00 Test Item Value Reference Range Interpretation Comments FT (test code = CHTR) Not detected (qualifier Not Detected N value) FT (test code = Not detected (qualifier Not Detected N NGONO) value) FT (test code = TRVG) Not detected (qualifier Not Detected N value) [facility] WITH [id number] 10:57:00 Test Item Value Reference Range Interpretation Comments Color (test code = UCOLR) Dk. Yellow Clarity (test code = UCLAR) Hazy Glucose (test code = UGLUC) NEGATIVE NEGATIVE N Bilirubin (test code = UBILI) NEGATIVE NEGATIVE N Ketones (test code = UKET) NEGATIVE NEGATIVE N Specific [place] (test code = 1.025 1.005-1.030 A USPGR) [...] = None Seen None Seen N URCRYS) [facility] [place] Notes Date/Time Note Provider Source 2023-01-17 09:44:10-00:00 Formatting of this note migh t be different from the original. [facility] Marjan Dean is a 67 year old female pt c alled requesting refill for raltegravir (ISENTRESS) 400 mg tablet emtricitabine-tenofovir alafen (DESCOVY) tablet Please advise [facility] [address] [place] [address] JYOTI VALE AT [facility] Electronically signed by Mena Olivarez at 9:46 AM CDT 2021-08-05 14:08:00-00:00 [id number] [place] [address] PATIENT NAME: MARJAN FLEMING ADMIT DATE: 08/05/21 ACCOUNT NO: [id number] ROOM NO: AGE: 66 REPORT TYPE: eTRANSESOPHAGEAL ECHO REPORT SEX: F ADMITTING PHYSICIAN: ATTENDING PHYSICIAN:Mike Lund MD *[address] [place] [address] Transesophageal Echocardiogram Patient: Marjan Fleming Study Date: 08/05/2021 BP: 158 / 92 Location: [facility] URN: [id number] : 1955 Age: 66 Height: / Gender: F Weight: / BMI/BSA: / *Ordering Physician: * Mike Lund *Interpreting Physician: * Ashely Mckeon MD *Supervisor Customer Services: * Odessa Interiano Indications: POST WATCHMAN. Study [...] benzocaine spray. A transesophageal probe (SN: [id number]) was inserted by the attending screw driver operator without difficulty. Location: [facility] PREP. Patient status: Outpatient. Study completion: [...] benzocaine spray. A transeso phageal probe (SN: [id number]) was inserted by the attending cardiolog ist [...] PATIENT NAME: MARJAN FLEMING 1 2021-06-24 11:18:00-00:00 [id number] [address] PATIENT NAME: MARJAN FLEMING ADMIT DATE: 06/17/21 ACCOUNT NO: [id number] ROOM NO: ADDIS AGE: 66 REPORT TYPE: eTRANSESOPHAGEAL ECHO REPORT SEX: F ADMITTING PHYSICIAN:Mike Lund MD ATTENDING PHYSICIAN:Mike Lund MD *[address] [address] Transesophageal Echocardiogram for [place] Patient: Marjan Fleming Study Date: 06/17/2021 BP: Location: [facility] URN: [id number] : 1955 Age: 66 Height: / Gender: [...] The patient was brought to the [facility] in the fasting state.Intravenous access was obtained. Surface E CG leads, blood pressure measurements, and pulse oximetric signals were m onitored. Sedation. Sedation was administered by anesthesiology samreen rodas. Transesophageal echocardiography was performed. A transesophagea l probe was inserted by the anesthesiologist. Images were obtained using a [employer] cardiac ultrasound machine. Location: Catheterization laboratory. Christian woodruff completion: The patient tolerated the procedure well. There were no complications. Findings Conclusions Summary: PATIENT NAME: MARJAN FLEMING 7 1. Study data: Transesophageal Echocardiogram fo r Watchman. 2. Procedure narrative: Transesophageal echocard iography was performed. A transesophageal probe was inserted by the ane sthesiologist. Images were obtained using a [employer] cardiac ultrasound mac dalton. Impressions: Patient with [...] stable. Right groin suture removed by this HAND BINDER CUTTER. No infect ion, bleeding, or hematoma. Dermabond applied and intact. Patient was provided with post-Watchman discharg e instructions. Patient is to follow up with PCP and screw driver operator in 1 t o 2 weeks post discharge. Patient is to follow up with screw driver operator for e 45-day WESLEY, and for anticoagulation recommendation. Prepared and electronically signed by Ashely Mckeon MD 06/24/2021 11:18 Electronically Signed by Mike Lund MD on at 1118 PATIENT NAME: MARJAN FLEMING 7 2021-06-17 18:10:00-00:00 [id number] [place] [address] PATIENT NAME: MARJAN FLEMING ADMIT DATE: 06/17/21 ACCOUNT NO: [id number] ROOM NO: ADDIS AGE: 66 REPORT TYPE: eECHOCARDIOGRAM REPORT SEX: F ADMITTING PHYSICIAN:Mike Lund MD ATTENDING PHYSICIAN:Mike Lund MD *[place] [address] Limited Transthoracic Echocardiogram Patient: Marjan Flemign Study Date: 06/17/2021 BP: 117 / 82 Location: [facility] URN: [id number] : 1955 Age: 66 Height: 64 in / 162.6 cm Gender: F Weight: 210 lb / 95.5 kg BMI/BSA: 36.1 kg/m 2 / 2.12 m 2 *Ordering Physician: * Bahman Chopra *Interpreting Physician: * Kevin Merino MD *Supervisor Customer Services: * Tiarra Loja Indications: Post Watchman/Rule out pericardial effusion. Study data: Transthoracic echocardiogram, limite d study. Procedure: Transthoracic echocardiography was performed. Im age quality was adequate. Limited 2D and limited spectral Dopple r. Location: [facility]. Patient status: Outpatient. Study status: Routin [...] 0 06/17/21 at 1810 PATIENT NAME: MARJAN LFEMING 7 2021-06-17 11:12:00-00:00 HCACL [facility] ([facility] Discharge Summary REPORT#:[id number] REPORT STATUS: Signed DATE:06/17/21 TIME: 1112 PATIENT: MARJAN FLEMING UNIT #: [id number] ROOM/BED: [place] [id number] : [birth year] AGE: 67 SEX: F ATTEND: René Lund MD ADM AUTHOR: Bahman Chopra * ALL edits or amendments must be made on the [employer]/computer document * PCP PCP Discharge to: home [...] stable. Right groin suture removed by this HAND BINDER CUTTER. No infect ion, bleeding, or hematoma. Dermabond applied and intact. Patient was provided with post-Watchman discharg e instructions. Patient is to follow up with PCP and screw driver operator in 1 to 2 we eks post discharge. Patient is to follow up with screw driver operator for th e 45-day WESLEY, and [...] breath, lightheadedness, or dizzi ness to the screw driver operator. Dispo: It is medically necessary that [...] distress GI: soft, non-tender Extremities: moves all Neuro/BIODIESEL PRODUCTION ASSOCIATE: alert, oriented X 3 Skin: dry Wound/incision: Location: Right groin suture removed by this HAND BINDER CUTTER. No infect ion, bleeding, or hematoma. Dermabond [...] Lund MD on 07/14 at 0946 [facility] #:[id number] END OF REPORT 2021-06-17 09:43:00-00:00 [id number] [place] [address] PATIENT NAME: MARJAN FLEMING ADMIT DATE: 06/17/21 ACCOUNT NO: [id number] ROOM NO: ADDIS AGE: 66 REPORT TYPE: eELECTROCARDIOGRAM REPORT SEX: F ADMITTING PHYSICIAN:Mike Lund MD ATTENDING PHYSICIAN:Mike Lund MD Order: [id number] Test Reason : S/P WATCHMAN Test Date/Time [...] PATIENT NAME: MARJAN FLEMING 7 2021-06-17 08:54:00-00:00 [id number] [place] [address] PATIENT NAME: MARJAN FLEMING ADMIT DATE: 06/17/21 ACCOUNT NO: [id number] ROOM NO: [facility] AGE: 66 REPORT TYPE: CARDIAC CATHETERIZATION REPORT SEX: F ADMITTING PHYSICIAN:Mike Lund MD ATTENDING PHYSICIAN:Mike Lund MD PROCEDURE DATE: 06/17/2021 PROCEDURE PERFORMED: Left atrial appendage closu re using a 24 mm Watchman FLX closure device. ACCESS: Right femoral vein, 16-Swiss closed wit h hwmcdi-ev-zdoth suture. SHEET SORTER: Mike Lund MD. SECONDARY SMART GRID ENGINEER: Kevin Merino MD. COMPLICATIONS: None. BLEEDING: Less [...] I accessed right femo ral vein, placed 8-Swiss Chamberlain sheath. Subsequently, upgraded to 16-Swiss sheath and gave a partial dose of heparin, then took the SL1 sheat h into the SVC over a wire with [place] needle inside, descended under the fluor oscopy [...] I removed the Watchman sheath and the 16-Swiss sheath and placed wxtptu-fr-bmyvw suture for hemostasis, then achieved a good hemo stasis. CONCLUSION: Left atrial appendage closure using a 24 mm Watchman FLX closure PATIENT NAME: MARJAN FLEMING 7 device. Dictated By: Mike Lund MD WT: CATH:GAYLE/RIKY/ALLA Conf#: [id number]/DID#: [id number] Authenticated by Mike Lund MD On 07/01/2021 12:30:01 PM Electronically Signed by Mike Lund MD on at 1230 PATIENT NAME: MARJAN FLEMING 7 2021-06-16 10:36:00-00:00 [id number] [address] PATIENT NAME: MARJAN FLEMING ADMIT DATE: ACCOUNT NO: [id number] ROOM NO: AGE: 66 REPORT TYPE: eELECTROCARDIOGRAM REPORT SEX: F ADMITTING PHYSICIAN: ATTENDING PHYSICIAN:Mike Lund MD Order: [id number] Test Reason : PREOP Test Date/Time Stamp: [...]
--- NOTE | 2023-01-22 22:32 | RAD REPORT ---
EXAM DESCRIPTION: CT - CTHCSPWOC - 01/22/2023 10:20 pm CLINICAL HISTORY: TRAUMA COMPARISON: Head C Spine Mpr Wo Con dated 01/07/2023; Head C Spine Mpr Wo Con dated 10/08/2022; Soft T issue Neck W/Contr dated 09/20/2022; Head C Spine Mpr Wo Con dated 06/24/2022 TECHNIQUE: Axial thin cut noncontrast CT images of the head were obtained. Axial thin cut noncontrast CT images of the cervical spine were obtained. Multiplanar reformatted images were generated and reviewed. All CT scans are performed using dose optimization technique as appropriate and may include automated exposure control or mA/KV adjustment according to patient size. FINDINGS: CT HEAD WITHOUT CONTRAST: No acute hemorrhage, hydrocephalus or extra-axial collection is identified. Mild diffuse parenchymal volume loss. Patchy subcortical and deep white matter hypodensities, nonspecific, but suggestive of c hronic small vessel ischemic changes. No areas of brain edema or midline shift. The paranasal sinuses and mastoids are clear.The calvarium is intact. CT CERVICAL SPINE WITHOUT CONTRAST: No fracture or subluxation.Straightening of normal cervical lordosis which may be positional or secon diego to muscle spasm. Multilevel degenerative changes more pronounced along the facet articulations o n the right. No prevertebral soft tissues swelling is identified. IMPRESSION: No acute traumatic intracranial or cervical spine findings. Chronic findings as above.
--- NOTE | 2023-01-22 22:58 | ER ---
Nurse's Notes [facility] Name: Marjan Kolb Age: 68 yrs Sex: Female : 1955 Arrival Date: 01/22/2023 Time: 21:47 Bed 6 Private MD: Diagnosis: Unspecified injury of head, initial encounter Presentation: 01/22 21:53 Chief complaint: Patient states: hit forehead with freezer door then stood up and hit kl back of head with door negative LOC. Coronavirus screen: Vaccine status: Patient reports receiving the 2nd dose of the covid vaccine. Ebola Screen: Patient negative for fever greater than or equal to 101.5 degrees Fahrenheit, and additional compatible Ebola Virus Disease symptoms. Initial Sepsis Screen: Does the patient meet any 2 criteria? No. Patient's initial sepsis screen is negative. Does the patient have a suspected source of infection? No. Patient's initial sepsis screen is negative. Risk Assessment: Do you want to hurt yourself or someone else? Patient reports no desire to harm self or others. 21:53 Method Of Arrival: EMS: [facility] 21:53 Acuity: BLAYNE 3 kl Triage Assessment: 21:56 General: Appears in no apparent distress. comfortable, Behavior is calm, cooperative. kl Pain: Complains of pain in top of head Pain currently is 9 out of 10 on a pain scale. Neuro: No deficits noted. Level of Consciousness is awake, alert, Oriented to person, place, time, situation, Admission Nurse Coordinator are equal bilaterally Moves all extremities. Full function Gait is steady, Speech is normal, Facial symmetry appears normal, Pupils are PERRLA, Cardiovascular: No deficits noted. Respiratory: No deficits noted. GI: No deficits noted. No signs and/or symptoms were reported involving the gastrointestinal system. : No deficits noted. No signs and/or symptoms were reported regarding the genitourinary system. Derm:. Historical: - Allergies: 21:56 Azithromycin; kl 21:56 Bactrim; kl 21:56 butorphanol; kl 21:56 Fentanyl; kl 21:56 Reglan; kl 21:56 Sulfa (Sulfonamide Antibiotics); kl 21:56 TRIMETHOPRIM; kl - PMHx: 21:56 angina pectoris; Anxiety; Atrial fibrillation; Bipolar disorder; esophageal varicies; kl Hepatitis; HIV positive; Hypertensive disorder; Migraine; panic attack; - Immunization history:: Adult Immunizations up to date. - Social history:: Smoking status: Patient denies any tobacco usage or history of. Screenin:[address] [facility] ED Fall Risk Assessment (Adult) History of falling in the last 3 months, including since admission No falls in past 3 months (0 pts) Confusion or Disorientation No (0 pts) Intoxicated or Sedated No (0 pts) Impaired Gait No (0 pts) Mobility Assist Device Used No (0 pt). Abuse screen: Denies threats or abuse. Nutritional screening: No deficits noted. Tuberculosis screening: No symptoms or risk factors identified. Assessment: 21:57 Reassessment: see triage assessment. kl 23:00 Reassessment: No changes from previously documented assessment. Patient and/or family vc1 updated on plan of care and expected duration. Pain level reassessed. Patient is alert, oriented x 3, equal unlabored respirations, skin warm/dry/pink. Vital Signs: 21:53 BP 161 / 94; Pulse 71; Resp 18; Temp 98.1(O); Pulse Ox 100% on R/A; Weight 96 kg (M); kl Height 5 ft. 4 in. ; Pain 9/10; 23:00 BP 164 / 94; Pulse 70; Resp 18; Pulse Ox 100% ; vc1 21:53 Body Mass Index 36.33 (96.00 kg, 162.56 cm) 21:53 Pain Scale: Adult Crystal Coma Score: 22:04 Eye Response: spontaneous(4). Motor Response: obeys commands(6). Verbal Response: thomas oriented(5). Total: 15. 22:10 Eye Response: spontaneous(4). Motor Response: obeys commands(6). Verbal Response: thomas oriented(5). Total: 15. ED Course: 21:52 Patient arrived in ED. kl 21:56 Triage completed. kl 21:58 Justus Kolb MD is Attending Physician. [facility] 21:58 Patient has correct armband on for positive identification. Bed in low position. Call light in reach. Side rails up X2. Provided Education on:. 22:19 CT Head C Spine In Process Unspecified. EDMS 23:06 No provider procedures requiring assistance completed. Patient did not have IV access vc1 during this emergency room visit. Administered Medications: 22:50 Not Given (Patient Refused): Acetaminophen PO 650 mg PO once vc1 Medication: 23:19 VIS not applicable for this client. vc1 Outcome: 22:56 Discharge ordered by . thomas 23:18 Discharged to home via wheelchair. vc1 23:18 Condition: good 23:18 Discharge instructions given to patient, Instructed on discharge instructions, follow up and referral plans. Demonstrated understanding of instructions, follow-up care. 23:23 Patient left the ED. vc1 Signatures: Dispatcher [employer] Paige Pacheco, RN Justus Tian MD MD cha Calcote, Vanessa, RN RN vc1
--- NOTE | 2023-01-22 22:58 | EDPHYS ---
Physician Documentation [facility] Name: Marjan Kolb Age: 68 yrs Sex: Female : 1955 Arrival Date: 01/22/2023 Time: 21:47 Bed 6 Private MD: Justus Cervantes HPI: 01/22 22:04 This 68 yrs old Female presents to ER via EMS with complaints of hit head on thomas fridge. 22:04 The patient or guardian reports deformity. The complaints affect the left side of the thomas back of head, left occipital area, left base of the skull, right side of the back of head, right occipital area and right base of the skull. Context of injury: The problem was sustained at home. Onset: The symptoms/episode began/occurred just prior to arrival. Associated signs and symptoms: The patient has no apparent associated signs or symptoms, Loss of consciousness: This patient did not experience any loss of consciousness. The patient has not experienced similar symptoms in the past. Historical: - Allergies: 21:56 Azithromycin; kl 21:56 Bactrim; kl 21:56 butorphanol; kl 21:56 Fentanyl; kl 21:56 Reglan; kl 21:56 Sulfa (Sulfonamide Antibiotics); kl 21:56 TRIMETHOPRIM; kl - PMHx: 21:56 angina pectoris; Anxiety; Atrial fibrillation; Bipolar disorder; esophageal varicies; kl Hepatitis; HIV positive; Hypertensive disorder; Migraine; panic attack; - Immunization history:: Adult Immunizations up to date. - Social history:: Smoking status: Patient denies any tobacco usage or history of. ROS: 22:06 Constitutional: Negative for fever, chills, and weight loss, Eyes: Negative for injury, thomas pain, redness, and discharge, ENT: Negative for injury, pain, and discharge, Neck: Negative for injury, pain, and swelling, Cardiovascular: Negative for chest pain, palpitations, and edema, Respiratory: Negative for shortness of breath, cough, wheezing, and pleuritic chest pain, Abdomen/GI: Negative for abdominal pain, nausea, vomiting, diarrhea, and constipation, Back: Negative for injury and pain, : Negative for injury, bleeding, discharge, and swelling, MS/Extremity: Negative for injury and deformity, Skin: Negative for injury, rash, and discoloration, Psych: Negative for depression, anxiety, suicide ideation, homicidal ideation, and hallucinations, Allergy/Immunology: Negative for hives, rash, and allergies, Endocrine: Negative for neck swelling, polydipsia, polyuria, polyphagia, and marked weight changes, Hematologic/Lymphatic: Negative for swollen nodes, abnormal bleeding, and unusual bruising. 22:06 Neuro: Positive for headache. Exam: 22:06 Constitutional: This is a well developed, well nourished patient who is awake, alert, thomas and in no acute distress. Head/Face: Normocephalic, atraumatic. Eyes: Pupils equal round and reactive to light, extra-ocular motions intact. Lids and lashes normal. Conjunctiva and sclera are non-icteric and not injected. Cornea within normal limits. Periorbital areas with no swelling, redness, or edema. ENT: Nares patent. No nasal discharge, no septal abnormalities noted. Tympanic membranes are normal and external auditory canals are clear. Oropharynx with no redness, swelling, or masses, exudates, or evidence of obstruction, uvula midline. Mucous membranes moist. Neck: Trachea midline, no thyromegaly or masses palpated, and no cervical lymphadenopathy. Supple, full range of motion without nuchal rigidity, or vertebral point tenderness. No Meningismus. Chest/axilla: Normal chest wall appearance and motion. Nontender with no deformity. No lesions are appreciated. Cardiovascular: Regular rate and rhythm with a normal S1 and S2. No gallops, murmurs, or rubs. Normal PMI, no JVD. No pulse deficits. Respiratory: Lungs have equal breath sounds bilaterally, clear to auscultation and percussion. No rales, rhonchi or wheezes noted. No increased work of breathing, no retractions or nasal flaring. Abdomen/GI: Soft, non-tender, with normal bowel sounds. No distension or tympany. No guarding or rebound. No evidence of tenderness throughout. Back: No spinal tenderness. No costovertebral tenderness. Full range of motion. Skin: Warm, dry with normal turgor. Normal color with no rashes, no lesions, and no evidence of cellulitis. MS/ Extremity: Pulses equal, no cyanosis. Neurovascular intact. Full, normal range of motion. Neuro: Awake and alert, GCS 15, oriented to person, place, time, and situation. Cranial nerves II-XII grossly intact. Motor strength 5/5 in all extremities. Sensory grossly intact. Cerebellar exam normal. Normal gait. Psych: Awake, alert, with orientation to person, place and time. Behavior, mood, and affect are within normal limits. Vital Signs: 21:53 BP 161 / 94; Pulse 71; Resp 18; Temp 98.1(O); Pulse Ox 100% on R/A; Weight 96 kg (M); kl Height 5 ft. 4 in. ; Pain 9/10; 23:00 BP 164 / 94; Pulse 70; Resp 18; Pulse Ox 100% ; vc1 21:53 Body Mass Index 36.33 (96.00 kg, 162.56 cm) kl 21:53 Pain Scale: Adult kl [place]all Coma Score: 22:04 Eye Response: spontaneous(4). Motor Response: obeys commands(6). Verbal Response: thomas oriented(5). Total: 15. 22:10 Eye Response: spontaneous(4). Motor Response: obeys commands(6). Verbal Response: thomas oriented(5). Total: 15. MDM: 21:58 Patient medically screened. thomas 22:10 Data reviewed: vital signs, nurses notes, radiologic studies, CT scan. Consideration of thomas Admission/Observation Escalation of care including admission/observation considered. I considered the following discharge prescriptions or medication management in the emergency department Medications were administered in the Emergency Department. See MAR. Independent interpretation of the following test(s) in the Emergency Department CT Scan: My interpretation is ct head and c spine. Test considered but Not performed: Labs: no labs. Historians other than the Patient: EMS: ems well informed. Care significantly affected by the following chronic conditions: Hypertension, bipolar, anxiety. 01/22 22:00 Order name: CT Head C Spine; Complete Time: 22:56 thomas 01/22 22:04 Order name: Ice pack; Complete Time: 22:45 thomas Administered Medications: 22:50 Not Given (Patient Refused): Acetaminophen PO 650 mg PO once vc1 Disposition Summary: 01/22/23 22:56 Discharge Ordered Location: Home thomas Problem: new thomas Symptoms: have improved thomas Condition: Stable thomas Diagnosis - Unspecified injury of head, initial encounter thomas Followup: thomas - With: Private Physician - When: 2 - 3 days - Reason: Recheck today's complaints, Continuance of care, Re-evaluation by your physician Discharge Instructions: - Discharge Summary Sheet thomas - Head Injury, Adult thomas - Head Injury, Adult, Cgch-ro-Lrne thomas Forms: - Medication Reconciliation Form thomas - Thank You Letter thomas - Antibiotic Education thomas - Prescription Opioid Use thomas - Patient Portal Instructions thomas - Leadership Thank You Letter thomas Signatures: Dispatcher [employer] Paige Pacheco RN RN kl Anderson, Corey, MD MD cha Calcote, Vanessa RN vc1
[2023-01-22] MEDS ORDERED: ACETAMINOPHEN 325 MG TABLET ONE (23:00)
[2023-01-22 23:49] VITALS: TEMP 98.1; O2SAT 100
[2023-01-22 23:50] VITALS: BP 164/94
== END 2023-01-22 23:23 | disposition home or self-care (01) ==
LOC: ER 21:47
DX: S09.90XA Unspecified injury of head, initial encounter (principal); I10 Essential (primary) hypertension; Z21 Asymptomatic human immunodeficiency virus [HIV] infection status; Z88.1 Allergy status to other antibiotic agents; Z88.2 Allergy status to sulfonamides; Z88.5 Allergy status to narcotic agent; Z88.8 Allergy status to other drugs, medicaments and biological substances
CPT/HCPCS: 70450; 72125; 99283

== ENCOUNTER 2023-02-04 19:23 | Emergency (ER) | payer OTHER ==
--- OUTSIDE RECORDS SUMMARY | 2023-02-04 20:00 | XMS REPORT | Continuity of Care Document ---
:1955 Author Organization [facility] t Address [address] [place] [address] Care Team Providers Name Role Phone Urmila Rahman Nunes Primary Care Physician ELAN LIRA Attending Clinician Unavailable PLACIDOPOBEVERLY HILL Attending Clinician Unavailable SANTIAGO CARDENAS Attending Clinician Unavailable Bill COLES Attending Clinician Unavailable Bill Rose Attending Clinician Santiago Sanchez Attending Clinician HOME MATTHEWS Attending Clinician Unavailable Home Santamaria Attending Clinician THERESA HICKMAN Attending Clinician Unavailable Theresa Hickman DO Attending Clinician ANETTE OLEA Attending Clinician Unavailable Anette Olea MD Attending Clinician PAULETTE GRAY Attending Clinician Unavailable Paulette Galvan Attending Clinician UNKNOWN, ATTENDING Attending Clinician Unavailable Robbi Bal Attending Clinician [facility] Attending Clinician Unavailable Isaias Whiteside RN Attending Clinician Unavailable TOMY MARIE Attending Clinician Unavailable Reilly Means MD Attending Clinician Ofe Shields MD Attending Clinician Tomy Marie MD Attending Clinician Doctor Unassigned, [place] Attending Clinician Unavailable CHARITY MCALLISTER Attending Clinician Unavailable Charity Mcallister MD Attending Clinician GADIEL KOEHLER Attending Clinician Unavailable Mike Lund Attending Clinician Unavailable NIKOLAI REEVES Attending Clinician Unavailable Eliseo Arce MD Attending Clinician Sarai Maharaj NP Attending Clinician [phone] Ashly Pelletier MA Attending Clinician Unavailable Dagoberto Bass MD Attending Clinician [place] Evangelista Attending Clinician Lab, [facility] Pob I Attending Clinician [...] Clinician Unavailable Geraldine SALGUERO, Leyda Attending Clinician [phone] Selvin RAMIREZ, Stefanie Attending Clinician Unavailable [...] Number Effective Date Expiration Date S gabino [facility] [id number] 2012 STAR PLUS OON 00:00:00 [facility] [id number] 2019 DUAL COMPLETE HMO 00:00:00 [facility] [id number] 2019 PLUS 00:00:00 [facility] [id number] 2019 [facility] 00:00:00 [employer] MEDICARE ADV [id number] 2019 2019 00:00:00 00:00:00 Problems Condition Condition Condition Status Onset Resolution Last Treating Co mments Source Name Details Category Date Date Treatment Clinician Date Dyspnea, Dyspnea, Disease Active Unive rs unspecifie unspecifie 02-11 it y of d type d type 00:00: [address] Branch Gastropare Gastropare Disease Active Overview : Methodi sis sis 4-[address] 00:00: [facility] 00 note l might be different from the original. Added automatic ally from request for surgery [id number] Dysphagia Dysphagia Disease Active Overview: Methodi 4-[address] 00:00: g [facility] 00 note l might be different from the original. 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 2020-10-15 Memeduardo PVI PVI 330 17:07:00 l ABLATION ABLATION 00:00: Patel n W/ CARTO / W/ CARTO / 00 GA / T GA / T Active 08/19/2020 [facility] Food Food Disease Active 2019-05 [...] [facility] hoxazole 1-25 Clear 00:00: Garcia 00 [facility] trimetho DA Active [facility] prim - Clear 00:00: Garcia [facility] codeine DA Active SV N/V [facility] - Clear 00:00: Garcia 00 [facility] Metoclop Propensi Active [...] [facility] Natural father Other - see comments [facility] Natural father Coronary Heart [facility] Disease [facility] Hy[facility] Natural mother [facility] Social History Social Habit Start Date Stop Date Quantity Comments Source Gender identity [facility] History SDOH [facility] Alcohol Frequency Hospita l History SDOH [facility] Alcohol Std Drinks Hospit al History SDOH [facility] Sexual [facility] History of Social 2022-08-26 2022-08-[address] function 00:00:00 00:00:00 Hospital Exposure to 2022-04-30 2022-05-10 Yes University of SARS-CoV-2 (event) 00:00:00 10:25:00 [facility] Tobacco use and 2022-02-11 2022-02-11 Former smokeless Uni versity of exposure 00:00:00 00:00:00 tobacco user [facility] Tobacco Comment 2022-02-11 2022-02-11 Smokes approx 1-2 Un iversity of 00:00:00 00:00:00 cigarettes per [facility] day when she Branch smokes Alcohol intake 2020-12-08 2020-12-08 Current drinker [facility] 00:00:00 00:00:00 of [facility] (finding) Cigarettes smoked 2020-09-05 2020-09-[address] current (pack per 00:00:00 00:00:00 Hospita l day) - Reported Cigarette 2020-09-05 2020-09-05 [facility] pack-years 00:00:00 00:00:00 Hospital Alcohol Comment 2016-09-23 2016-09-23 rare [facility] 00:00:00 00:00:00 Hospital History of tobacco 2011-09-29 User of smokeless University of use 00:00:00 tobacco [facility] Sex Assigned At [birth year] [facility] 00:00:00 00:00:00 Smoking Status Start Date Stop Date Source Ex-smoker 2022-02-11 00:00:00 2022-02-11 00:00:00 [facility] Medications Ordered Filled Start Stop Current Ordering Indication Dosage Frequency Signature Comments Components Source Medication Medication Date Date Medication? Clinician (SIG) Name Name ondansetron 2022- No 4mg 4 mg, Slow Univers (ZOFRAN 01-28 IV Push, ity of (PF)) 00:15: 23:13 ONCE, 1 [place] injection 4 00 :00 dose, On Medi porfirio mg [facility] 01/27/23 Branch at 1915, JOE KCL 2022-2022- No 40meq 40 mEq, Univers (KLOR-CON 01-28 Oral, ity of M20) tablet 00:15: 23:13 [place]CE[place] 1 [place] 40 mEq 00 :00 dose, On [facility] 01/27/23 Branch at 191, Routine dicyclomine 2022- No 20mg 20 mg, Uni vers (BENTYL) 01-28 Oral, ity of tablet 20 00:15: 23:13 ONCE, 1 [place] mg 00 :00 dose, On [facility] 01/27/23 Branch at 191, Routine NaCl 0.9% No 1000mL at 999 Uni vers (NS) bolus 01-27 mL/hr, ity of infusion 23:00: 23:59 1,000 mL, [place] 1,000 mL 00 :00 IV Medical Infusion, Branch ONCE, 1 dose, On [facility] 01/27/23 at 1800, STAT ondansetron 2022- No 4mg 4 mg, Slow Univers (ZOFRAN 01-27 IV Push, ity of (PF)) 21:00: 21:10 ONCE, 1 [place] injection 4 00 :00 dose, On Medi porfirio mg [facility] 01/27/23 Branch at 1600, JOE morpHINE (4 2022- No 4mg 4 mg, Slow Univers mg/mL) 01-27 IV Push, ity of injection 4 21:00: 21:15 [place]CE[place] 1 [place] mg 00 :00 dose, On [facility] 01/27/23 Branch at 1600, STAT iopamidol 2022- No [id number] 70mL 70 mL, U nivers (ISOVUE 01-27 Intravenou ity o f 370-500 mL) 20:44: 20:45 s, ONCE, 1 [place] injection 00 :00 dose, On Medica l 70 mL [facility] 01/27/23 Branch at 1600, Routine hydralAZINE 2022- No 10mg 10 mg, Uni vers (APRESOLINE 01-27- Slow IV ity of ) injection 20:00: 21:10 [place] 10 mg 00 :00 ONCE, 1 Medical dose, On Branch [facility] 01/27/23 at 1500, JOE ondansetron 2022-0 Yes [id number] 4mg Take 1 Univers 4 mg 9-07 tablet by ity of disintegrat 00:00: mouth [place] ing tablet 00 every 8 Medica l (eight) Branch hours as needed for Nausea and Vomiting (N/V). dicyclomine 0 Yes [id number] 20mg Take 1 Univers 20 mg 9-07 tablet by ity of tablet 00:00: mouth 4 [place] 00 (four) Medical times Branch daily. emtricitabi 0 Yes [id number] Take one Univers ne-tenofovi 6-12 po daily ity of r alafen 00:00: [place] (DESCOVY) 00 Medical tablet Branch raltegravir 0 Yes [id number] 400mg Take 1 Univers (ISENTRESS) 6-12 tablet by ity of 400 mg 00:00: mouth in [place] tablet 00 the Medical morning Branch and 1 tablet in the evening. emtricitabi 2022-0 Yes [id number] Take one Univers ne-tenofovi 6-12 po daily ity of r alafen 00:00: [place] (DESCOVY) 00 Medical tablet Branch raltegravir 2022-0 Yes [id number] 400mg Take 1 Univers (ISENTRESS) 6-12 tablet by ity of 400 mg 00:00: mouth in [place] tablet 00 the Medical morning Branch and 1 tablet in the evening. emtricitabi 2022-0 Yes [id number] Take one Univers ne-tenofovi 6-12 po daily ity of r alafen 00:00: [place] (DESCOVY) 00 Medical tablet Branch raltegravir 2022-0 Yes [id number] 400mg Take 1 Univers (ISENTRESS) 6-12 tablet by ity of 400 mg 00:00: mouth in [place] tablet 00 the Medical morning Branch and 1 tablet in the evening. DESCOVY Yes [id number] Take one Univers tablet 5-08 po daily ity of 00:00: [place] 00 Medical Branch raltegravir Yes [id number] 400mg Take 1 Univers (ISENTRESS) 5-08 tablet by ity of 400 mg 00:00: mouth in [place] tablet 00 the Medical morning Branch and 1 tablet in the evening. DESCOVY 2022- No [id number] Take one Univers tablet 5-08 -12 po daily ity of 00:00: 00:00 [place] 00 :00 Medical Branch raltegravir 2022- No [id number] 400mg Take 1 Univers (ISENTRESS) 5-08 -12 tablet by it y of 400 mg 00:00: 00:00 mouth in [place] tablet 00 :00 the Medical morning Branch and 1 tablet in the evening. emtricitabi Yes [id number] Take one Univers ne-tenofovi 4-04 po daily ity of r alafen 00:00: [place] (DESCOVY) 00 Medical tablet Branch emtricitabi Yes [id number] Take one Univers ne-tenofovi 4-04 po daily ity of r alafen 00:00: [place] (DESCOVY) 00 Medical tablet Branch emtricitabi 2022- No [id number] Take one Univers ne-tenofovi 4-04 05-08 po daily ity of r alafen 00:00: 00:00 [place] (DESCOVY) 00 :00 Medical tablet Branch potassium 2021-05 No 10meq 10 mEq, IV Univers chloride in 07-11 Piggyback, i ty of water 10 20:00: 22:00 ONCE, 1 [place] mEq/100 mL 00 :00 dose, On Medic al RTU 10 mEq [facility] 05/10/22 at 1400, Administer over 60 Minutes, 100 mL magnesium 2021-05 No 800mg 800 mg, Uni vers oxide 07-11 Oral, ity of (MAG-OX 20:00: 19:37 ONCE, 1 [place] 400) tablet 00 :00 dose, On Medi porfirio 800 mg [facility] 05/10/22 at 1400, Routine KCL 2021-05 No 40meq 40 mEq, Univers (KLOR-CON 07-11- Oral, ity of M20) tablet 19:15: 19:37 [place]CE[place] 1 [place] 40 mEq 00 :00 dose, On Medical Mon Branch 05/10/22 at 1315, JOE hydralAZINE 2021-05- No 10mg 10 mg, Uni vers (APRESOLINE 07-11 Slow IV ity of ) injection 18:45: 18:42 [place], [place] 10 mg 00 :00 ONCE, 1 Medical dose, On Branch [facility] 05/10/22 at 1245, JEO NaCl 0.9% 2021-05- No 1000mL at 999 Uni vers (NS) bolus 07-11 mL/hr, ity of infusion 17:45: 20:00 1,000 mL, [place] 1,000 mL 00 :00 IV Medical Infusion, Branch ONCE, 1 dose, On [facility] 05/10/22 at 1145, JOE cefpodoxime 2021-05- No [id number] 100mg Take 1 Univers 100 mg 2-17 12-25 tablet by ity of tablet 00:00: 05:59 mouth in [place] 00 :00 the [facility] Branch and 1 tablet in the evening. Do all this for 7 days. cefpodoxime 2021-05- No [id number] 100mg Take 1 Univers 100 mg 2-17 12-25 tablet by ity of tablet 00:00: 05:59 mouth in [place] 00 :00 the [facility] Branch and 1 tablet in the evening. Do all this for 7 days. cefpodoxime 2021-05- No [id number] 100mg Take 1 Univers 100 mg 2-17 12-25 tablet by ity of tablet 00:00: 05:59 mouth in [place] 00 :00 the [facility] Branch and 1 tablet in the evening. Do all this for 7 days. butalbital- 2021-05- No 1{tbl} 1 tablet, Univers acetaminoph -16 -15 Oral, ity of en-caff 00:15: 23:19 ONCE, 1 [place] (ESGIC) 00 :00 dose, On Medical 50-325-40 [place] Branch mg tablet 1 05/06/22 tablet at 1815, JOE NaCl 0.9% 2022-1 2022- No 500mL at 999 Univ ers (NS) [...] [place] 05/06/22 at 1600, JOE NaCl 0.9% 2021-05- [...] 05/06/22 at 1515, JOE ondansetron 2021-05 Yes [id number] 1-2 U nivers 4 mg tablet 2-15 tablets ity o f 00:00: every 8 [place] 00 hours as Medical needed for Branch nausea benzonatate 2021-05 Yes [id number] 200mg Take 1 Univers 200 mg 2-15 capsule by ity of capsule 00:00: mouth 3 [place] 00 (three) Medical times Branch daily as needed for Cough. albuterol 2021-05 Yes [id number] 2{puff} Inhale 2 Univers 90 2-15 Puffs ity of mcg/actuati 00:00: every 4 [place] on inhaler 00 (four) Medical hours as Branch needed for Wheezing or Shortness of Breath. butalbital- 2021-05 Yes [id number] 1{tbl} Take 1 Univers acetaminoph 2-15 tablet by ity of en-caff 00:00: mouth [place] 50-325-40 00 every 4 Medical mg tablet (four) Branch hours as needed (headache) . ondansetron 2021-05 Yes [id number] 1-2 U nivers 4 mg tablet 2-15 tablets ity o f 00:00: every 8 [place] 00 hours as Medical needed for Branch nausea benzonatate 2021-05 Yes [id number] 200mg Take 1 Univers 200 mg 2-15 capsule by ity of capsule 00:00: mouth 3 [place] 00 (three) Medical times Branch daily as needed for Cough. albuterol 2021-05 Yes [id number] 2{puff} Inhale 2 Univers 90 2-15 Puffs ity of mcg/actuati 00:00: every 4 [place] on inhaler 00 (four) Medical hours as Branch needed for Wheezing or Shortness of Breath. butalbital- 2021-05 Yes [id number] 1{tbl} Take 1 Univers acetaminoph 2-15 tablet by ity of en-caff 00:00: mouth [place] 50-325-40 00 every 4 Medical mg tablet (four) Branch hours as needed (headache) . ondansetron 2021-05 Yes [id number] 1-2 U nivers 4 mg tablet 2-15 tablets ity o f 00:00: every 8 [place] 00 hours as Medical needed for Branch nausea benzonatate 2021-05 Yes [id number] 200mg Take 1 Univers 200 mg 2-15 capsule by ity of capsule 00:00: mouth 3 [place] 00 (three) Medical times Branch daily as needed for Cough. albuterol 2021-05 Yes [id number] 2{puff} Inhale 2 Univers 90 2-15 Puffs ity of mcg/actuati 00:00: every 4 [place] on inhaler 00 (four) Medical hours as Branch needed for Wheezing or Shortness of Breath. butalbital- 2021-05 Yes [id number] 1{tbl} Take 1 Univers acetaminoph 2-15 tablet by ity of en-caff 00:00: mouth [place] 50-325-40 00 every 4 Medical mg tablet (four) Branch hours as needed (headache) . ondansetron 2021-05 Yes [id number] 1-2 U nivers 4 mg tablet 2-15 tablets ity o f 00:00: every 8 [place] 00 hours as Medical needed for Branch nausea benzonatate 2021-05 Yes [id number] 200mg Take 1 Univers 200 mg 2-15 capsule by ity of capsule 00:00: mouth 3 [place] 00 (three) Medical times Branch daily as needed for Cough. albuterol 2021-05 Yes [id number] 2{puff} Inhale 2 Univers 90 2-15 Puffs ity of mcg/actuati 00:00: every 4 [place] on inhaler 00 (four) Medical hours as Branch needed for Wheezing or Shortness of Breath. butalbital- 2021-05 Yes [id number] 1{tbl} Take 1 Univers acetaminoph 2-15 tablet by ity of en-caff 00:00: mouth [place] 50-325-40 00 every 4 Medical mg tablet (four) Branch hours as needed (headache) . ondansetron 2021-05 Yes [id number] 1-2 U nivers 4 mg tablet 2-15 tablets ity o f 00:00: every 8 [place] 00 hours as Medical needed for Branch nausea benzonatate 2021-05 Yes [id number] 200mg Take 1 Univers 200 mg 2-15 capsule by ity of capsule 00:00: mouth 3 [place] 00 (three) Medical times Branch daily as needed for Cough. albuterol 2021-05 Yes [id number] 2{puff} Inhale 2 Univers 90 2-15 Puffs ity of mcg/actuati 00:00: every 4 [place] on inhaler 00 (four) Medical hours as Branch needed for Wheezing or Shortness of Breath. butalbital- 2021-05 Yes [id number] 1{tbl} Take 1 Univers acetaminoph 2-15 tablet by ity of en-caff 00:00: mouth [place] 50-325-40 00 every 4 Medical mg tablet (four) Branch hours as needed (headache) . ondansetron 2021-05 Yes [id number] 1-2 U nivers 4 mg tablet 2-15 tablets ity o f 00:00: every 8 [place] 00 hours as Medical needed for Branch nausea benzonatate 2021-05 Yes [id number] 200mg Take 1 Univers 200 mg 2-15 capsule by ity of capsule 00:00: mouth 3 [place] 00 (three) Medical times Branch daily as needed for Cough. albuterol 2021-05 Yes [id number] 2{puff} Inhale 2 Univers 90 2-15 Puffs ity of mcg/actuati 00:00: every 4 [place] on inhaler 00 (four) Medical hours as Branch needed for Wheezing or Shortness of Breath. butalbital- 2021-05 Yes [id number] 1{tbl} Take 1 Univers acetaminoph 2-15 tablet by ity of en-caff 00:00: mouth [place] 50-325-40 00 every 4 Medical mg tablet (four) Branch hours as needed (headache) . ondansetron 2021-05 Yes [id number] 1-2 U nivers 4 mg tablet 2-15 tablets ity o f 00:00: every 8 [place] 00 hours as Medical needed for Branch nausea benzonatate 2021-05 Yes [id number] 200mg Take 1 Univers 200 mg 2-15 capsule by ity of capsule 00:00: mouth 3 [place] 00 (three) Medical times Branch daily as needed for Cough. albuterol 2021-05 Yes [id number] 2{puff} Inhale 2 Univers 90 2-15 Puffs ity of mcg/actuati 00:00: every 4 [place] on inhaler 00 (four) Medical hours as Branch needed for Wheezing or Shortness of Breath. butalbital- 2021-05 Yes [id number] 1{tbl} Take 1 Univers acetaminoph 2-15 tablet by ity of en-caff 00:00: mouth [place] 50-325-40 00 every 4 Medical mg tablet (four) Branch hours as needed (headache) . ondansetron 2021-05 Yes [id number] 1-2 U nivers 4 mg tablet 2-15 tablets ity o f 00:00: every 8 [place] 00 hours as Medical needed for Branch nausea benzonatate 2021-05 Yes [id number] 200mg Take 1 Univers 200 mg 2-15 capsule by ity of capsule 00:00: mouth 3 [place] 00 (three) Medical times Branch daily as needed for Cough. albuterol 2021-05 Yes [id number] 2{puff} Inhale 2 Univers 90 2-15 Puffs ity of mcg/actuati 00:00: every 4 [place] on inhaler 00 (four) Medical hours as Branch needed for Wheezing or Shortness of Breath. butalbital- 2021-05 Yes [id number] 1{tbl} Take 1 Univers acetaminoph 2-15 tablet by ity of en-caff 00:00: mouth [place] 50-325-40 00 every 4 Medical mg tablet (four) Branch hours as needed (headache) . ondansetron 2021-05 Yes [id number] 1-2 U nivers 4 mg tablet 2-15 tablets ity o f 00:00: every 8 [place] 00 hours as Medical needed for Branch nausea benzonatate 2021-05 Yes [id number] 200mg Take 1 Univers 200 mg 2-15 capsule by ity of capsule 00:00: mouth 3 [place] 00 (three) Medical times Branch daily as needed for Cough. albuterol 2021-05 Yes [id number] 2{puff} Inhale 2 Univers 90 2-15 Puffs ity of mcg/actuati 00:00: every 4 [place] on inhaler 00 (four) Medical hours as Branch needed for Wheezing or Shortness of Breath. butalbital- 2021-05 Yes [id number] 1{tbl} Take 1 Univers acetaminoph 2-15 tablet by ity of en-caff 00:00: mouth [place] 50-325-40 00 every 4 Medical mg tablet (four) Branch hours as needed (headache) . ondansetron 2021-05 Yes [id number] 1-2 U nivers 4 mg tablet 2-15 tablets ity o f 00:00: every 8 [place] 00 hours as Medical needed for Branch nausea benzonatate 2021-05 Yes [id number] 200mg Take 1 Univers 200 mg 2-15 capsule by ity of capsule 00:00: mouth 3 [place] 00 (three) Medical times Branch daily as needed for Cough. albuterol 2021-05 Yes [id number] 2{puff} Inhale 2 Univers 90 2-15 Puffs ity of mcg/actuati 00:00: every 4 [place] on inhaler 00 (four) Medical hours as Branch needed for Wheezing or Shortness of Breath. butalbital- 2021-05 Yes [id number] 1{tbl} Take 1 Univers acetaminoph 2-15 tablet by ity of en-caff 00:00: mouth [place] 50-325-40 00 every 4 Medical mg tablet (four) Branch hours as needed (headache) . ondansetron 2021-05 Yes [id number] 1-2 U nivers 4 mg tablet 2-15 tablets ity o f 00:00: every 8 [place] 00 hours as Medical needed for Branch nausea benzonatate 2021-05 Yes [id number] 200mg Take 1 Univers 200 mg 2-15 capsule by ity of capsule 00:00: mouth 3 [place] 00 (three) Medical times Branch daily as needed for Cough. albuterol 2021-05 Yes [id number] 2{puff} Inhale 2 Univers 90 2-15 Puffs ity of mcg/actuati 00:00: every 4 [place] on inhaler 00 (four) Medical hours as Branch needed for Wheezing or Shortness of Breath. butalbital- 2021-05 Yes [id number] 1{tbl} Take 1 Univers acetaminoph 2-15 tablet by ity of en-caff 00:00: mouth [place] 50-325-40 00 every 4 Medical mg tablet (four) Branch hours as needed (headache) . ondansetron 2021-05 Yes [id number] 1-2 U nivers 4 mg tablet 2-15 tablets ity o f 00:00: every 8 [place] 00 hours as Medical needed for Branch nausea benzonatate 2021-05 Yes [id number] 200mg Take 1 Univers 200 mg 2-15 capsule by ity of capsule 00:00: mouth 3 [place] 00 (three) Medical times Branch daily as needed for Cough. albuterol 2021-05 Yes [id number] 2{puff} Inhale 2 Univers 90 2-15 Puffs ity of mcg/actuati 00:00: every 4 [place] on inhaler 00 (four) Medical hours as Branch needed for Wheezing or Shortness of Breath. butalbital- 2021-05 Yes [id number] 1{tbl} Take 1 Univers acetaminoph 2-15 tablet by ity of en-caff 00:00: mouth [place] 50-325-40 00 every 4 Medical mg tablet (four) Branch hours as needed (headache) . nirmatrelvi 2021-05 No [id number] 2{tbl} Take 2 Univers r-ritonavir 2-15 12-21 tablets by i ty of (PAXLOVID, 00:00: 05:59 mouth in [place] EUA,) 300 00 :00 the Medical mg (150 mg morning Branch x 2)-100 mg and 2 tablet tablets in the evening. Do all this for 5 days. nirnctrei 2021-05- No [id number] 2{tbl} Take 2 Univers r-ritonavir 2-15 12-21 tablets by i ty of (PAXLOVID, 00:00: 05:59 [place] EUA,) 300 00 :00 the Medical mg (150 mg morning Branch x 2)-100 mg and 2 tablet tablets in the evening. Do all this for 5 days. nirmatrelvi 2021-05 No [id number] 2{tbl} Take 2 Univers r-ritonavir 2-15 12-21 tablets by i ty of (PAXLOVID, 00:00: 05:59 mouth in [place] EUA,) 300 00 :00 the Medical mg (150 mg morning Branch x 2)-100 mg and 2 tablet tablets in the evening. Do all this for 5 days. [facility] 2021-[facility]- No [id number] 2{tbl} Take 2 Univers r-ritonavir 2-15 12-21 tablets by i ty of (PAXLOVID, 00:00: 05:59 [place] EUA[place] 300 00 :00 the Medical mg (150 mg morning Branch x 2)-100 mg and 2 tablet tablets in the evening. Do all this for 5 days. ondansetron 2021-05 4mg 4 mg, [facility] (ZOFRAN-ODT 06-23 Oral, ity of ) 22:45: 21:53 ONCE, 1 [place] disintegrat 00 :00 dose, On Medi porfirio ing tablet [place] Branch 4 mg 04/22/22 at 1645, Routine amoxicillin 2021-05 Yes [id number] 1{tbl} Take 1 Univers -clavulanat 2- [id number] tablet by i ty of e 875-125 00:00: mouth [place] mg per 00 every 12 Medical tablet (twelve) Branch hours. ondansetron 2021-05 Yes [id number] 4mg Take 1 Univers 4 mg 2- [id number] tablet by ity of disintegrat 00:00: mouth [place] ing tablet 00 every 8 Medica l (eight) Branch hours as needed for Nausea and Vomiting (N/V). amoxicillin 2021-05 Yes [id number] 1{tbl} Take 1 Univers -clavulanat 2-01 [id number] tablet by i ty of e 875-125 00:00: mouth [place] mg per 00 every 12 Medical tablet (twelve) Branch hours. ondansetron 2021-05 Yes [id number] 4mg Take 1 Univers 4 mg 2-01 [id number] tablet by ity of disintegrat 00:00: mouth [place] ing tablet 00 every 8 Medica l (eight) Branch hours as needed for Nausea and Vomiting (N/V). amoxicillin 2021-05 Yes [id number] 1{tbl} Take 1 Univers -clavulanat 2-01 [id number] tablet by i ty of e 875-125 00:00: mouth [place] mg per 00 every 12 Medical tablet (twelve) Branch hours. ondansetron 2021-05 Yes [id number] 4mg Take 1 Univers 4 mg 2- [id number] tablet by ity of disintegrat 00:00: mouth [place] ing tablet 00 every 8 Medica l (eight) Branch hours as needed for Nausea and Vomiting (N/V). amoxicillin 2021-05 Yes [id number] 1{tbl} Take 1 Univers -clavulanat 2-01 [id number] tablet by i ty of e 875-125 00:00: mouth [place] mg per 00 every 12 Medical tablet (twelve) Branch hours. ondansetron 2021-05 Yes [id number] 4mg Take 1 Univers 4 mg 2-01 [id number] tablet by ity of disintegrat 00:00: mouth [place] ing tablet 00 every 8 Medica l (eight) Branch hours as needed for Nausea and Vomiting (N/V). amoxicillin 2021-05 Yes [id number] 1{tbl} Take 1 Univers -clavulanat 2-01 [id number] tablet by i ty of e 875-125 00:00: mouth [place] mg per 00 every 12 Medical tablet (twelve) Branch hours. ondansetron 2021-05 Yes [id number] 4mg Take 1 Univers 4 mg 2-01 [id number] tablet by ity of disintegrat 00:00: mouth [place] ing tablet 00 every 8 Medica l (eight) Branch hours as needed for Nausea and Vomiting (N/V). amoxicillin 2021-05 Yes [id number] 1{tbl} Take 1 Univers -clavulanat 2-01 [id number] tablet by i ty of e 875-125 00:00: mouth [place] mg per 00 every 12 Medical tablet (twelve) Branch hours. ondansetron 2021-05 Yes [id number] 4mg Take 1 Univers 4 mg 2-01 [id number] tablet by ity of disintegrat 00:00: mouth [place] ing tablet 00 every 8 Medica l (eight) Branch hours as needed for Nausea and Vomiting (N/V). amoxicillin 2021-05 Yes [id number] 1{tbl} Take 1 [facility] -clavulanat 2-01 [id number] tablet by i ty of e 875-125 00:00: mouth [place] mg per 00 every 12 Medical tablet (twelve) Branch hours. ondansetron 2021-05 Yes [id number] 4mg Take 1 [facility] 4 mg 2-01 [id number] tablet by ity of disintegrat 00:00: mouth [place] ing tablet 00 every 8 Medica l (eight) Branch hours as needed for Nausea and Vomiting (N/V). amoxicillin 2021-05 Yes [id number] 1{tbl} Take 1 [facility] -clavulanat 2-01 [id number] tablet by i ty of e 875-125 00:00: mouth [place] mg per 00 every 12 Medical tablet (twelve) Branch hours. ondansetron 2021-05 Yes [id number] 4mg Take 1 [facility] 4 mg 2-01 [id number] tablet by ity of disintegrat 00:00: mouth [place] ing tablet 00 every 8 Medica l (eight) Branch hours as needed for Nausea and Vomiting (N/V). amoxicillin 2021-05 Yes [id number] 1{tbl} Take 1 [facility] -clavulanat 2-01 [id number] tablet by i ty of e 875-125 00:00: mouth [place] mg per 00 every 12 Medical tablet (twelve) Branch hours. ondansetron 2021-05 Yes [id number] 4mg Take 1 [facility] 4 mg 2-01 [id number] tablet by ity of disintegrat 00:00: mouth [place] ing tablet 00 every 8 Medica l (eight) Branch hours as needed for Nausea and Vomiting (N/V). amoxicillin 2021-05 Yes [id number] 1{tbl} Take 1 [facility] -clavulanat 2-01 [id number] tablet by i ty of e 875-125 00:00: mouth [place] mg per 00 every 12 Medical tablet (twelve) Branch hours. ondansetron 2021-05 Yes [id number] 4mg Take 1 [facility] 4 mg 2-01 [id number] tablet by ity of disintegrat 00:00: mouth [place] ing tablet 00 every 8 Medica l (eight) Branch hours as needed for Nausea and Vomiting (N/V). amoxicillin 2021-05 Yes [id number] 1{tbl} Take 1 [facility] -clavulanat 2-01 [id number] tablet by i ty of e 875-125 00:00: mouth [place] mg per 00 every 12 Medical tablet (twelve) Branch hours. ondansetron 2021-05 Yes [id number] 4mg Take 1 [facility] 4 mg 2-01 [id number] tablet by ity of disintegrat 00:00: mouth [place] ing tablet 00 every 8 Medica l (eight) Branch hours as needed for Nausea and Vomiting (N/V). amoxicillin 2021-05 Yes [id number] 1{tbl} Take 1 [facility] -clavulanat 2-01 [id number] tablet by i ty of e 875-125 00:00: mouth [place] mg per 00 every 12 Medical tablet (twelve) Branch hours. ondansetron 2021-05 Yes [id number] 4mg Take 1 [facility] 4 mg 2-01 [id number] tablet by ity of disintegrat 00:00: mouth [place] ing tablet 00 every 8 Medica l (eight) Branch hours as needed for Nausea and Vomiting (N/V). amoxicillin 2021-05 Yes [id number] 1{tbl} Take 1 [facility] -clavulanat 2-01 [id number] tablet by i ty of e 875-125 00:00: mouth [place] mg per 00 every 12 Medical tablet (twelve) Branch hours. ondansetron 2021-05 Yes [id number] 4mg Take 1 [facility] 4 mg 2-01 [id number] tablet by ity of disintegrat 00:00: mouth [place] ing tablet 00 every 8 Medica l (eight) Branch hours as needed for Nausea and Vomiting (N/V). amoxicillin 2021-05 Yes [id number] 1{tbl} Take 1 [facility] -clavulanat 2-01 [id number] tablet by i ty of e 875-125 00:00: mouth [place] mg per 00 every 12 Medical tablet (twelve) Branch hours. ondansetron 2021-05 Yes [id number] 4mg Take 1 [facility] 4 mg 2-01 [id number] tablet by ity of disintegrat 00:00: mouth [place] ing tablet 00 every 8 Medica l (eight) Branch hours as needed for Nausea and Vomiting (N/V). zoster 2021-05- No [id number] .5mL 0.5 mL by [facility] vaccine, 0-14 - 9104 [facility] ity of recombinant 00:00: 04:59 lar route [place] (SHINGRIX, 00 :00 once now Medic al PF,) for 1 Branch injection dose. And repeat in 2-6 months zoster 2021-05- No [id number] .5mL 0.5 mL by [facility] vaccine, 0-14 - 9104 Intramuscu ity of recombinant 00:00: 04:59 lar route [place] (SHINGRIX, 00 :00 once now Medic al PF,) for 1 Branch injection dose. And repeat in 2-6 months zoster 2021-05- No [id number] .5mL 0.5 mL by [facility] vaccine, 0-05 [...] by mouth ity of tablet 19:28: at [place] [address] bedtime. Medical Branch hydralAZINE 2021-0 Yes 25mg [...] o f 1 mg tablet 19:28: at [place] [address] bedtime. Medical Branch traZODone 2021-0 Yes 50mg Take 50 mg Un matt 100 mg 9-27 by mouth ity of tablet 19:28: at [place] [address] bedtime. Medical Branch hydralAZINE 2021-0 Yes 25mg [...] o f 1 mg tablet 19:28: at [place] [address] bedtime. Medical Branch traZODone 2021-0 Yes 50mg Take 50 mg Un matt 100 mg 9-27 by mouth ity of tablet 19:28: at [place] [address] bedtime. Medical Branch hydralAZINE 0 Yes 25mg [...] o f 1 mg tablet 19:28: at [place] [address] bedtime. Medical Branch traZODone 0 Yes 50mg Take 50 mg Un matt 100 mg 9-27 by mouth ity of tablet 19:28: at [place] [address] bedtime. Medical Branch hydralAZINE 0 Yes 25mg [...] o f 1 mg tablet 19:28: at [place] [address] bedtime. Medical Branch traZODone 2021-0 Yes 50mg Take 50 mg Un matt 100 mg 9-27 by mouth ity of tablet 19:28: at [place] [address] bedtime. Medical Branch hydralAZINE 2021-0 Yes 25mg [...] ity of 10 mg 19:28: daily. tablet Medical Branch clonazePAM 2021-0 Yes 1mg Take 1 mg Un matt (KLONOPIN) 9-27 by mouth ity o f 1 mg tablet 19:28: at [place] [address] bedtime. Medical Branch traZODone 2021-0 Yes 50mg Take 50 mg Un matt 100 mg 9-27 by mouth ity of tablet 19:28: at [place] [address] bedtime. Medical Branch hydralAZINE 2021-0 Yes 25mg [...] o f 1 mg tablet 19:28: at [place] [address] bedtime. Medical Branch traZODone 2021-0 Yes 50mg Take 50 mg Un matt 100 mg 9-27 by mouth ity of tablet 19:28: at [place] [address] bedtime. Medical Branch hydralAZINE 2021-0 Yes 25mg [...] o f 1 mg tablet 19:28: at [place] [address] bedtime. Medical Branch traZODone 2021-0 Yes 50mg Take 50 mg Un matt 100 mg 9-27 by mouth ity of tablet 19:28: at [place] [address] bedtime. Medical Branch hydralAZINE 2021-0 Yes 25mg [...] o f 1 mg tablet 19:28: at [place] [address] bedtime. Medical Branch traZODone 2021-0 Yes 50mg Take 50 mg Un matt 100 mg 9-27 by mouth ity of tablet 19:28: at [place] [address] bedtime. Medical Branch hydralAZINE 2021-0 Yes 25mg [...] 100 mg 04 (two) Medical tablet times [place] daily. amLODIPine 2021-0 Yes 10mg Take 10 mg U nivers (NORVASC) 9-27 by mouth ity of 10 mg 19:28: daily. [place] tablet 04 Medical Branch clonazePAM 2021-0 Yes 1mg Take 1 mg Un matt (KLONOPIN) 9-27 by mouth ity o f 1 mg tablet 19:28: at [place] [address] bedtime. Medical Branch traZODone 2021-0 Yes 50mg Take 50 mg Un matt 100 mg 9-27 by mouth ity of tablet 19:28: at [place] [address] bedtime. Medical Branch hydralAZINE 2021-0 Yes 25mg [...] o f 1 mg tablet 19:28: at [place] [address] bedtime. Medical Branch traZODone 2021-0 Yes 50mg Take 50 mg Un matt 100 mg 9- by mouth ity of tablet 19:28: at [place] [address] bedtime. Medical Branch hydralAZINE 2021-0 Yes 25mg [...] o f 1 mg tablet 19:28: at [place] [address] bedtime. Medical Branch traZODone 2022-0 Yes 50mg Take 50 mg Un matt 100 mg 9-27 by mouth ity of tablet 19:28: at [place] [address] bedtime. Medical Branch hydralAZINE 2-0 Yes 25mg [...] o f 1 mg tablet 19:28: at [place] [address] bedtime. Medical Branch traZODone 2-0 Yes 50mg Take 50 mg Un matt 100 mg 9-27 by mouth ity of tablet 19:28: at [place] [address] bedtime. Medical Branch hydralAZINE 2021-0 Yes 25mg [...] o f 1 mg tablet 19:28: at [place] [address] bedtime. Medical Branch traZODone 2022-0 Yes 50mg Take 50 mg Un matt 100 mg 9-27 by mouth ity of tablet 19:28: at [place] [address] bedtime. Medical Branch hydralAZINE 2022-0 Yes 25mg [...] o f 1 mg tablet 19:28: at [place] [address] bedtime. Medical Branch traZODone 2-0 Yes 50mg Take 50 mg Un matt 100 mg 9-27 by mouth ity of tablet 19:28: at [place] [address] bedtime. Medical Branch hydralAZINE 2-0 Yes 25mg [...] o f 1 mg tablet 19:28: at [place] [address] bedtime. Medical Branch traZODone 2021-0 Yes 50mg Take 50 mg Un matt 100 mg 9-27 by mouth ity of tablet 19:28: at [place] [address] bedtime. Medical Branch hydralAZINE 2021-0 Yes 25mg [...] o f 1 mg tablet 19:28: at [place] [address] bedtime. Medical Branch traZODone 2021-0 Yes 50mg Take 50 mg Un matt 100 mg 9-27 by mouth ity of tablet 19:28: at [place] [address] bedtime. Medical Branch hydralAZINE 2021-0 Yes 25mg [...] o f 1 mg tablet 19:28: at [place] [address] bedtime. Medical Branch traZODone 2021-0 Yes 50mg Take 50 mg Un matt 100 mg 9-27 by mouth ity of tablet 19:28: at [place] [address] bedtime. Medical Branch hydralAZINE 2021-0 Yes 25mg [...] o f 1 mg tablet 19:28: at [place] [address] bedtime. Medical Branch traZODone 2021-0 Yes 50mg Take 50 mg Un matt 100 mg 9-27 by mouth ity of tablet 19:28: at [place] [address] bedtime. Medical Branch hydralAZINE 2021-0 Yes 25mg [...] o f 1 mg tablet 19:28: at [place] [address] bedtime. Medical Branch traZODone 2021-0 Yes 50mg Take 50 mg Un matt 100 mg 9-27 by mouth ity of tablet 19:28: at [place] [address] bedtime. Medical Branch hydralAZINE 2021-0 Yes 25mg [...] mouth ity of 10 mg 19:28: daily. [place] tablet 04 Medical Branch clonazePAM 0 Yes 1mg Take 1 mg Un matt (KLONOPIN) 9-27 by mouth ity o f 1 mg tablet 19:28: at [place] [address] bedtime. Medical Branch traZODone 2021-0 Yes 50mg Take 50 mg Un matt 100 mg 9-27 by mouth ity of tablet 19:28: at [place] [address] bedtime. Medical Branch hydralAZINE 2021-0 Yes 25mg [...] o f 1 mg tablet 19:28: at [place] [address] bedtime. Medical Branch traZODone Yes 50mg Take 50 mg Un matt 100 mg 02-16 by mouth ity of tablet 19:28: at [place] [address] bedtime. Medical Branch cefpodoxime 2021- No [id number] 200mg Take 1 [facility] 200 mg 02-16 tablet by ity of tablet 00:00: 04:59 mouth in [place] 00 :00 the Medical morning Branch and 1 tablet in the evening. Do all this for 3 days. cefpodoxime 2021- No [id number] 200mg Take 1 [facility] 200 mg 02-16 [...] Yes 25mg 25 mg, Univ ers thiazide 925 Oral, ity of (ESIDRIX) 14:00: DAILY, [place] capsule 25 00 First dose Med ical mg on [place] Branch 02/14/22 at 0900, Until Discontinu ed, Routine butalbital- Yes 1{tbl} 1 tablet, Univers acetaminoph 02-13 Oral, ity of en-caff 18:46: Q6HPRN, [place] (ESGIC) 06 Starting Medical 50-325-40 on Sat Branch mg tablet 1 02/13/22 at tablet 1346, Until Discontinu ed, Routine, headaches dicyclomine 2022-0 Yes 10mg 10 mg, [place] ers (BENTYL) [...] [place] tablet 4 mg 07 Starting [facility] porfirio on Tue Branch 02/12/22 at 1237, [...] dose [place] tablet 40 00 on [facility] mg 02/11/22 at Branch 1300, Until Discontinu ed, Routine emtricitabi 2021-0 Yes 1{tbl} 1 tablet, Univers ne-tenofovi 02-11 Oral, ity of r alafen 18:00: DAILY, [place] (DESCOVY) 00 First dose Medi porfirio tablet 1 on [facility] tablet 02/11/22 at 1300, Until Discontinu ed, Routine ipratropium 2021-0 Yes .5mg 0.5 mg, Uni vers (ATROVENT) 02-11 Inhalation ity of 0.02 % 17:57: , MERY, [place] nebulizer 10 Starting Medica l solution on [place] Branch 0.5 mg 02/11/22 at 1257, Until [...] :24 Starting Medi porfirio tablet 1 on [facility] Branch tablet 02/11/22 at 0911, Until Tue02/12/22 at 1237, Routine, Pain (scale 7-10) melatonin Yes 3mg 3 mg, Univers (MELATIN) 02-11 Oral, ity of tablet 3 mg 14:08: QHSPRN, [place] as 17 Starting Medical on [facility] Branch 02/11/22 at 0908, Until Discontinu ed, Routine, Insomnia acetaminoph 2021- No 1{tbl} 1 tablet, Univers en-codeine 02-11 Oral, ity of (TYLENOL 14:06: 17:37 [facility] [place] #3) 300-30 19 :24 Starting Medic al mg tablet 1 on [facility] Branch tablet 02/11/22 at 0906, Until Tue02/12/22 at 1237, Routine, Pain (scale 4-6) sennosides- Yes 1{tbl} 1 tablet, Univers docusate 02-11 Oral, ity of sodium 14:06: QDAILYPRN, [place] (SENOKOT-S) 09 Starting Medi porfirio 8.6-50 mg on [facility] per tablet 02/11/22 at 1 tablet 0906, Until Discontinu ed, Routine, Constipati on ondansetron Yes 4mg 4 mg, Slow Univers (ZOFRAN 02-11 IV Push, ity of (PF)) 14:05: Q6HPRN, [place] injection 4 59 Starting Medi porfirio mg on [place] Branch 02/11/22 at 0905, Until Discontinu ed, Routine, Nausea and Vomiting (N/V) acetaminoph Yes 650mg 650 mg, Un matt en 02-11 Oral, ity of (TYLENOL) 14:04: Q6HPRN, [place] tablet 650 37 Starting Medic al mg [...] ity of ) 25 mg 09:10: daily. [place] tablet 54 [facility] amLODIPine 0 Yes 10mg Take 10 mg U nivers (NORVASC) 02-11 by mouth ity of 10 mg 09:10: daily. [place] tablet 54 [facility] Branch piperacilli 2021- No 3.375g 3.375 [...] of therapy: 72 hours iopamidol 2- No [id number] 60mL 60 mL, Univers (ISOVUE 02-11 Intravenou [...] 02/11/22 at 0015, JOE emtricitabi 0 Yes [id number] Take one Univers ne-tenofovi 9-12 po daily ity of r alafen 00:00: [place] (DESCOVY) 00 Medical tablet Branch emtricitabi 2021-0 Yes [id number] Take one Univers ne-tenofovi 9-12 po daily ity of r alafen 00:00: [place] (DESCOVY) 00 Medical tablet Branch emtricitabi 2021-0 Yes [id number] Take one Univers ne-tenofovi 9-12 po daily ity of r alafen 00:00: [place] (DESCOVY) 00 Medical tablet Branch emtricitabi 2021-0 Yes [id number] Take one [facility] ne-tenofovi 9-12 po daily ity of r alafen 00:00: [place] (DESCOVY) 00 Medical tablet Branch emtricitabi Yes [id number] Take one Univers ne-tenofovi 9-12 po daily ity of r alafen 00:00: [place] (DESCOVY) 00 Medical tablet Branch [facility] [id number] Take one Univers ne-tenofovi 9-12 po daily ity of r alafen 00:00: [place] (DESCOVY) 00 Medical tablet Branch [facility] Yes [id number] Take one Univers ne-tenofovi 9-12 po daily ity of r alafen 00:00: [place] (DESCOVY) 00 Medical tablet [facility] [id number] Take one Univers ne-tenofovi 9-12 po daily ity of r alafen 00:00: [place] (DESCOVY) 00 Medical tablet Branch [facility] Yes [id number] Take one Univers ne-tenofovi 9-12 po daily ity of r alafen 00:00: [place] (DESCOVY) 00 Medical tablet Branch [facility] Yes [id number] Take one Univers ne-tenofovi 9-12 po daily ity of r alafen 00:00: [place] (DESCOVY) 00 Medical tablet Branch [facility] Yes [id number] Take one Univers ne-tenofovi 9-12 po daily ity of r alafen 00:00: [place] (DESCOVY) 00 Medical tablet Branch [facility] Yes [id number] Take one Univers ne-tenofovi 9-12 po daily ity of r alafen 00:00: [place] (DESCOVY) 00 Medical tablet Branch emtricita Yes [id number] Take one Univers ne-tenofovi 9-12 po daily ity of r alafen 00:00: [place] (DESCOVY) 00 Medical tablet Branch emtricita Yes [id number] Take one Univers ne-tenofovi 9-12 po daily ity of r alafen 00:00: [place] (DESCOVY) 00 Medical tablet Branch emtricita Yes [id number] Take one Univers ne-tenofovi 9-12 po daily ity of r alafen 00:00: [place] (DESCOVY) 00 Medical tablet Branch emtricitabi 2021-0 Yes [id number] Take one Univers ne-tenofovi 9-12 po daily ity of r alafen 00:00: [place] (DESCOVY) 00 Medical tablet Branch emtricitabi 2021-0 Yes [id number] Take one Univers ne-tenofovi 9-12 po daily ity of r alafen 00:00: (DESCOVY) 00 Medical tablet Branch emtricitabi 2021-0 2023- No [id number] Take one Univers ne-tenofovi 9-12 04-04 po daily ity of r alafen 00:00: 00:00 [place] (DESCOVY) 00 :00 Medical tablet Branch emtricitabi 2021-0 2023- No [id number] Take one Univers ne-tenofovi 9-12 04-04 po daily ity of r alafen 00:00: 00:00 [place] (DESCOVY) 00 :00 Medical tablet Branch naproxen 2021-0 Yes [id number] 500mg Take 1 U nivers (NAPROSYN) 7-24 tablet by ity of 500 mg 00:00: mouth in [place] tablet 00 the Medical morning Branch and 1 tablet in the evening. Take with meals. methocarbam 2021-0 Yes [id number] 500mg Take 1 Univers oL 500 mg 7-24 tablet by ity o f tablet 00:00: mouth 4 [place] ([facility]) Medical times [place] daily. naproxen 2021-0 Yes [id number] 500mg Take 1 U nivers (NAPROSYN) 7-24 tablet by ity of 500 mg 00:00: mouth in [place] tablet 00 the Medical morning Branch and 1 tablet in the evening. Take with meals. methocarbam 2-0 Yes [id number] 500mg Take 1 Univers oL 500 mg 7-24 tablet by ity o f tablet 00:00: mouth 4 [place] ([facility]) Medical times Branch daily. naproxen 2-0 Yes [id number] 500mg Take 1 U nivers (NAPROSYN) 7-24 tablet by ity of 500 mg 00:00: mouth in [place] tablet 00 the Medical morning Branch and 1 tablet in the evening. Take with meals. methocarbam 2-0 Yes [id number] 500mg Take 1 Univers oL 500 mg 7-24 tablet by ity o f tablet 00:00: mouth 4 [place] 00 (four) Medical times Branch daily. naproxen 2021- No [id number] 500mg Take 1 Univers (NAPROSYN) 7-24 10-14 tablet by ity of 500 mg 00:00: 00:00 mouth in [place] tablet 00 :00 the Medical morning Branch and 1 tablet in the evening. Take with meals. methocarbam 2021- No [id number] 500mg Take 1 [facility] oL 500 mg 7-24 10-14 tablet by ity of tablet 00:00: 00:00 mouth 4 [place] 00 :00 (four) Medical times Branch daily. naproxen 2021- No [id number] 500mg Take 1 Univers (NAPROSYN) 7-24 10-14 tablet by ity of 500 mg 00:00: 00:00 mouth in [place] tablet 00 :00 the Medical morning Branch and 1 tablet in the evening. Take with meals. methocarbam 2021- No [id number] 500mg Take 1 [facility] oL 500 mg 7-24 10-14 tablet by ity of tablet 00:00: 00:00 mouth 4 [place] 00 :00 (four) Medical times [place] daily. esomeprazol 2021- No 40mg Take 40 mg Univers e (NEXIUM) 11-20 by mouth 2 it y of 40 mg 09:12: 00:00 (two) [place] capsule 03 :00 times Medical daily. Branch amiodarone 2021- No 100mg Take 100 U nivers 100 mg 11-20 mg by ity of tablet 09:11: 00:00 mouth [place] 57 :00 daily. Medical Branch apixaban 2021- No 5mg Take 5 mg Uni vers (ELIQUIS) 5 11-20 by mouth 2 i ty of mg tablet 09:11: 00:00 (two) [place] 35 :00 times Medical daily. Branch traZODONE 2021- No Take by [facility] ers (DESYREL) 11-20 mouth at ity o f 10 mg/mL 09:10: 00:00 bedtime. [place] oral 28 :00 Medical suspension Branch hydralAZINE 2022-0 Yes 25mg Take 25 mg Univers (APRESOLINE 11-20 by mouth ity of ) 25 mg 08:47: daily. [place] tablet 47 Medical Branch cephALEXin 2021- No [id number] 500mg Take 1 Univers (KEFLEX) 10-24 capsule [...] 7-10). Indication s: acute pain buPROPion Yes [id number] 150mg Take 1 U nivers XL 4-12 tablet by ity of (WELLBUTRIN 00:00: mouth [place] XL) 150 mg 00 daily. Medical 24 hr Branch tablet busPIRone 0 Yes [id number] 30mg Take 1 Un matt 30 mg 4-12 tablet by ity of tablet 00:00: mouth 2 [place] 00 (two) Medical times Branch daily. SERTraline Yes [id number] 200mg Take 2 Univers 100 mg 4-12 tablets by ity of tablet 00:00: mouth [place] 00 daily. Medical Branch buPROPion 0 Yes [id number] 150mg Take 1 U nivers XL 4-12 tablet by ity of (WELLBUTRIN 00:00: mouth [place] XL) 150 mg 00 daily. Medical 24 hr Branch tablet busPIRone 0 Yes [id number] 30mg Take 1 Un matt 30 mg 4-12 tablet by ity of tablet 00:00: mouth 2 [place] 00 (two) Medical times Branch daily. SERTraline 0 Yes [id number] 200mg Take 2 Univers 100 mg 4-12 tablets by ity of tablet 00:00: mouth [place] 00 daily. Medical Branch buPROPion 0 Yes [id number] 150mg Take 1 U nivers XL 4-12 tablet by ity of (WELLBUTRIN 00:00: mouth [place] XL) 150 mg 00 daily. Medical 24 hr Branch tablet busPIRone 2021-0 Yes [id number] 30mg Take 1 Un matt 30 mg 4-12 tablet by ity of tablet 00:00: mouth 2 00 (two) Medical times Branch daily. SERTraline 2021-0 Yes [id number] 200mg Take 2 Univers 100 mg 4-12 tablets by ity of tablet 00:00: mouth [place] 00 daily. Medical Branch buPROPion 2021-0 Yes [id number] 150mg Take 1 U nivers XL 4-12 tablet by ity of (WELLBUTRIN 00:00: mouth [place] XL) 150 mg 00 daily. Medical 24 hr Branch tablet busPIRone 2021-0 Yes [id number] 30mg Take 1 Un matt 30 mg 4-12 tablet by ity of tablet 00:00: mouth 2 (two) Medical times Branch daily. SERTraline 0 Yes [id number] 200mg Take 2 Univers 100 mg 4-12 tablets by ity of tablet 00:00: mouth [place] 00 daily. Medical Branch buPROPion 0 Yes [id number] 150mg Take 1 U nivers XL 4-12 tablet by ity of (WELLBUTRIN 00:00: mouth [place] XL) 150 mg 00 daily. Medical 24 hr Branch tablet busPIRone 2021-0 Yes [id number] 30mg Take 1 Un matt 30 mg 4-12 tablet by ity of tablet 00:00: mouth 2 [place] 00 (two) Medical times Branch daily. SERTraline 2021-0 Yes [id number] 200mg Take 2 Univers 100 mg 4-12 tablets by ity of tablet 00:00: mouth [place] 00 daily. Medical Branch buPROPion 2021-0 Yes [id number] 150mg Take 1 U nivers XL 4-12 tablet by ity of (WELLBUTRIN 00:00: mouth [place] XL) 150 mg 00 daily. Medical 24 hr Branch tablet busPIRone 2021-0 Yes [id number] 30mg Take 1 Un matt 30 mg 4-12 tablet by ity of tablet 00:00: mouth 2 [place] 00 (two) Medical times Branch daily. SERTraline 2021-0 Yes [id number] 200mg Take 2 Univers 100 mg 4-12 tablets by ity of tablet 00:00: mouth [place] 00 daily. Medical Branch buPROPion 2021-0 Yes [id number] 150mg Take 1 U nivers XL 4-12 tablet by ity of (WELLBUTRIN 00:00: mouth [place] XL) 150 mg 00 daily. Medical 24 hr Branch tablet busPIRone 2021-0 Yes [id number] 30mg Take 1 Un matt 30 mg 4-12 tablet by ity of tablet 00:00: mouth 2 [place] 00 (two) Medical times Branch daily. SERTraline 2021-0 Yes [id number] 200mg Take 2 Univers 100 mg 4-12 tablets by ity of tablet 00:00: mouth [place] 00 daily. Medical Branch buPROPion 0 Yes [id number] 150mg Take 1 U nivers XL 4-12 tablet by ity of (WELLBUTRIN 00:00: mouth [place] XL) 150 mg 00 daily. Medical 24 hr Branch tablet busPIRone 0 Yes [id number] 30mg Take 1 Un matt 30 mg 4-12 tablet by ity of tablet 00:00: mouth 2 00 (two) Medical times Branch daily. SERTraline 0 Yes [id number] 200mg Take 2 Univers 100 mg 4-12 tablets by ity of tablet 00:00: mouth [place] 00 daily. Medical Branch buPROPion 0 Yes [id number] 150mg Take 1 U nivers XL 4-12 tablet by ity of (WELLBUTRIN 00:00: mouth [place] XL) 150 mg 00 daily. Medical 24 hr Branch tablet busPIRone 0 Yes [id number] 30mg Take 1 Un matt 30 mg 4-12 tablet by ity of tablet 00:00: mouth 2 00 (two) Medical times Branch daily. SERTraline 2021-0 Yes [id number] 200mg Take 2 [facility] 100 mg 4-12 tablets by ity of tablet 00:00: mouth [place] 00 daily. Medical Branch buPROPion 2021-0 Yes [id number] 150mg Take 1 U nivers XL 4-12 tablet by ity of (WELLBUTRIN 00:00: mouth [place] XL) 150 mg 00 daily. Medical 24 hr Branch tablet busPIRone 2021-0 Yes [id number] 30mg Take 1 Un matt 30 mg 4-12 tablet by ity of tablet 00:00: mouth 2 00 (two) Medical times Branch daily. SERTraline 2022-0 Yes [id number] 200mg Take 2 Univers 100 mg 4-12 tablets by ity of tablet 00:00: mouth [place] 00 daily. Medical Branch buPROPion 0 Yes [id number] 150mg Take 1 U nivers XL 4-12 tablet by ity of (WELLBUTRIN 00:00: mouth [place] XL) 150 mg 00 daily. Medical 24 hr Branch tablet busPIRone 0 Yes [id number] 30mg Take 1 Un matt 30 mg 4-12 tablet by ity of tablet 00:00: mouth 2 [place] 00 (two) Medical times Branch daily. SERTraline Yes [id number] 200mg Take 2 Univers 100 mg 4-12 tablets by ity of tablet 00:00: mouth [place] 00 daily. Medical Branch buPROPion Yes [id number] 150mg Take 1 U nivers XL 4-12 tablet by ity of (WELLBUTRIN 00:00: mouth [place] XL) 150 mg 00 daily. Medical 24 hr Branch tablet busPIRone 0 Yes [id number] 30mg Take 1 Un matt 30 mg 4-12 tablet by ity of tablet 00:00: mouth 2 [place] 00 (two) Medical times Branch daily. SERTraline Yes [id number] 200mg Take 2 Univers 100 mg 4-12 tablets by ity of tablet 00:00: mouth [place] 00 daily. Medical Branch buPROPion 0 Yes [id number] 150mg Take 1 U nivers XL 4-12 tablet by ity of (WELLBUTRIN 00:00: mouth [place] XL) 150 mg 00 daily. Medical 24 hr Branch tablet busPIRone 0 Yes [id number] 30mg Take 1 Un matt 30 mg 4-12 tablet by ity of tablet 00:00: mouth 2 [place] 00 (two) Medical times Branch daily. SERTraline 0 Yes [id number] 200mg Take 2 Univers 100 mg 4-12 tablets by ity of tablet 00:00: mouth [place] 00 daily. Medical Branch buPROPion 0 Yes [id number] 150mg Take 1 U nivers XL 4-12 tablet by ity of (WELLBUTRIN 00:00: mouth [place] XL) 150 mg 00 daily. Medical 24 hr Branch tablet busPIRone 0 Yes [id number] 30mg Take 1 Un matt 30 mg 4-12 tablet by ity of tablet 00:00: mouth 2 [place] 00 (two) Medical times Branch daily. SERTraline 2021-0 Yes [id number] 200mg Take 2 [facility] 100 mg 4-12 tablets by ity of tablet 00:00: mouth [place] 00 daily. Medical Branch buPROPion 2021-0 Yes [id number] 150mg Take 1 U nivers XL 4-12 tablet by ity of (WELLBUTRIN 00:00: mouth [place] XL) 150 mg 00 daily. Medical 24 hr Branch tablet busPIRone 2021-0 Yes [id number] 30mg Take 1 Un matt 30 mg 4-12 tablet by ity of tablet 00:00: mouth 2 [place] 00 (two) Medical times Branch daily. SERTraline 2021-0 Yes [id number] 200mg Take 2 Univers 100 mg 4-12 tablets by ity of tablet 00:00: mouth [place] 00 daily. Medical Branch buPROPion 2021-0 Yes [id number] 150mg Take 1 U nivers XL 4-12 tablet by ity of (WELLBUTRIN 00:00: mouth [place] XL) 150 mg 00 daily. Medical 24 hr Branch tablet busPIRone 2021-0 Yes [id number] 30mg Take 1 Un matt 30 mg 4-12 tablet by ity of tablet 00:00: mouth 2 [place] 00 (two) Medical times Branch daily. SERTraline 2021-0 Yes [id number] 200mg Take 2 [facility] 100 mg 4-12 tablets by [facility]y of tablet 00:00: mouth [place] 00 daily. Medical Branch buPROPion 2021-0 Yes [id number] 150mg Take 1 U nivers XL 4-12 tablet by ity of (WELLBUTRIN 00:00: mouth [place] XL) 150 mg 00 daily. Medical 24 hr Branch tablet busPIRone 2021-0 Yes [id number] 30mg Take 1 Un matt 30 mg 4-12 tablet by ity of tablet 00:00: mouth 2 [place] 00 (two) Medical times Branch daily. SERTraline 2021-0 Yes [id number] 200mg Take 2 [facility] 100 mg 4-12 tablets by ity of tablet 00:00: mouth [place] 00 daily. Medical Branch buPROPion 2021-0 Yes [id number] 150mg Take 1 U nivers XL 4-12 tablet by ity of (WELLBUTRIN 00:00: mouth [place] XL) 150 mg 00 daily. Medical 24 hr Branch tablet busPIRone 2021-0 Yes [id number] 30mg Take 1 Un matt 30 mg 4-12 tablet by ity of tablet 00:00: mouth 2 00 (two) Medical times Branch daily. SERTraline 2021-0 Yes [id number] 200mg Take 2 [facility] 100 mg 4-12 tablets by ity of tablet 00:00: mouth [place] 00 daily. Medical [facility] buPROPion 2021-0 Yes [id number] 150mg Take 1 U nivers XL 4-12 tablet by ity of (WELLBUTRIN 00:00: mouth [place] XL) 150 mg 00 daily. Medical 24 hr Branch tablet busPIRone 2021-0 Yes [id number] 30mg Take 1 Un matt 30 mg 4-12 tablet by ity of tablet 00:00: mouth 2 (two) Medical times Branch daily. SERTraline 2021-0 Yes [id number] 200mg Take 2 [facility] 100 mg 4-12 tablets by ity of tablet 00:00: mouth [place] 00 daily. Medical [facility] buPROPion 2021-0 Yes [id number] 150mg Take 1 U nivers XL 4-12 tablet by ity of (WELLBUTRIN 00:00: mouth [place] XL) 150 mg 00 daily. Medical 24 hr Branch tablet busPIRone 2021-0 Yes [id number] 30mg Take 1 Un matt 30 mg 4-12 tablet by ity of tablet 00:00: mouth 2 (two) Medical times Branch daily. SERTraline 2021-0 Yes [id number] 200mg Take 2 [facility] 100 mg 4-12 tablets by ity of tablet 00:00: mouth [place] 00 daily. Medical Branch buPROPion 2021-0 Yes [id number] 150mg Take 1 U nivers XL 4-12 tablet by ity of (WELLBUTRIN 00:00: mouth [place] XL) 150 mg 00 daily. Medical 24 hr Branch tablet busPIRone 2021-0 Yes [id number] 30mg Take 1 Un matt 30 mg 4-12 tablet by ity of tablet 00:00: mouth 2 00 (two) Medical times Branch daily. SERTraline 2021-0 Yes [id number] 200mg Take 2 [facility] 100 mg 4-12 tablets by [facility]y of tablet 00:00: mouth [place] 00 daily. Medical Branch buPROPion 2021-0 Yes [id number] 150mg Take 1 [facility] nivers XL 4-12 tablet by ity of (WELLBUTRIN 00:00: mouth [place] XL) 150 mg 00 daily. Medical 24 hr Branch tablet busPIRone 2021-0 Yes [id number] 30mg Take 1 Un matt 30 mg 4-12 tablet by ity of tablet 00:00: mouth 2 [place] 00 (two) Medical times Branch daily. SERTraline 2021-0 Yes [id number] 200mg Take 2 [facility] 100 mg 4-12 tablets by ity of tablet 00:00: mouth [place] 00 daily. Medical Branch buPROPion 2021-0 Yes [id number] 150mg Take 1 U nivers XL 4-12 tablet by ity of (WELLBUTRIN 00:00: mouth [place] XL) 150 mg 00 daily. Medical 24 hr Branch tablet busPIRone 2021-0 Yes [id number] 30mg Take 1 Un matt 30 mg 4-12 tablet by ity of tablet 00:00: mouth 2 [place] 00 (two) Medical times Branch daily. SERTraline 2021-0 Yes [id number] 200mg Take 2 [facility] 100 mg 4-12 tablets by ity of tablet 00:00: mouth [place] 00 daily. Medical Branch buPROPion 2021-0 Yes [id number] 150mg Take 1 U nivers XL 4-12 tablet by ity of (WELLBUTRIN 00:00: mouth [place] XL) 150 mg 00 daily. Medical 24 hr Branch tablet busPIRone 2021-0 Yes [id number] 30mg Take 1 Un matt 30 mg 4-12 tablet by ity of tablet 00:00: mouth 2 [place] 00 (two) Medical times Branch daily. SERTraline 2021-0 Yes [id number] 200mg Take 2 [facility] 100 mg 4-12 tablets by [facility]y of tablet 00:00: mouth [place] 00 daily. Medical Branch raltegravir 2021-0 Yes [id number] 400mg Take 1 [facility] (ISENTRESS) 3-28 tablet by ity of 400 mg 00:00: mouth 2 [place] tablet 00 (two) Medical times Branch daily. raltegravir 2021-0 Yes [id number] 400mg Take 1 [facility] (ISENTRESS) 3-28 tablet by ity of 400 mg 00:00: mouth 2 [place] tablet 00 (two) Medical times Branch daily. raltegravir 2022-0 Yes [id number] 400mg Take 1 [facility] (ISENTRESS) 3-28 tablet by ity of 400 mg 00:00: mouth 2 [place] tablet 00 (two) Medical times Branch daily. raltegravir 2022-0 Yes [id number] 400mg Take 1 [facility] (ISENTRESS) 3-28 tablet by ity of 400 mg 00:00: mouth 2 [place] tablet 00 (two) Medical times Branch daily. raltegravir 2022-0 Yes [id number] 400mg Take 1 [facility] (ISENTRESS) 3-28 tablet by ity of 400 mg 00:00: mouth 2 [place] tablet 00 (two) Medical times Branch daily. raltegravir 2022-0 Yes [id number] 400mg Take 1 [facility] (ISENTRESS) 3-28 tablet by ity of 400 mg 00:00: mouth 2 [place] tablet 00 (two) Medical times Branch daily. raltegravir 2022-0 Yes [id number] 400mg Take 1 [facility] (ISENTRESS) 3-28 tablet by ity of 400 mg 00:00: mouth 2 [place] tablet 00 (two) Medical times Branch daily. raltegravir 2022-0 Yes [id number] 400mg Take 1 [facility] (ISENTRESS) 3-28 tablet by ity of 400 mg 00:00: mouth 2 [place] tablet 00 (two) Medical times Branch daily. raltegravir 2022-0 Yes [id number] 400mg Take 1 [facility] (ISENTRESS) 3-28 tablet by ity of 400 mg 00:00: mouth 2 [place] tablet 00 (two) Medical times Branch daily. raltegravir 2022-0 Yes [id number] 400mg Take 1 [facility] (ISENTRESS) 3-28 tablet by ity of 400 mg 00:00: mouth 2 [place] tablet 00 (two) Medical times Branch daily. raltegravir 2022-0 Yes [id number] 400mg Take 1 [facility] (ISENTRESS) 3-28 tablet by ity of 400 mg 00:00: mouth 2 [place] tablet 00 (two) Medical times Branch daily. raltegravir 2022-0 Yes [id number] 400mg Take 1 [facility] (ISENTRESS) 3-28 tablet by ity of 400 mg 00:00: mouth 2 [place] tablet 00 (two) Medical times Branch daily. raltegravir 2021-0 Yes [id number] 400mg Take 1 [facility] (ISENTRESS) 3-28 tablet by ity of 400 mg 00:00: mouth 2 [place] tablet 00 (two) Medical times Branch daily. raltegravir 2021-0 Yes [id number] 400mg Take 1 [facility] (ISENTRESS) 3-28 tablet by ity of 400 mg 00:00: mouth 2 [place] tablet 00 (two) Medical times Branch daily. raltegravir 2021-0 Yes [id number] 400mg Take 1 [facility] (ISENTRESS) 3-28 tablet by ity of 400 mg 00:00: mouth 2 [place] tablet 00 (two) Medical times Branch daily. raltegravir 2021-0 Yes [id number] 400mg Take 1 [facility] (ISENTRESS) 3-28 tablet by ity of 400 mg 00:00: mouth 2 [place] tablet 00 (two) Medical times Branch daily. raltegravir 2021-0 Yes [id number] 400mg Take 1 [facility] (ISENTRESS) 3-28 tablet by ity of 400 mg 00:00: mouth 2 [place] tablet 00 (two) Medical times Branch daily. raltegravir 2021-0 Yes [id number] 400mg Take 1 [facility] (ISENTRESS) 3-28 tablet by ity of 400 mg 00:00: mouth 2 [place] tablet 00 (two) Medical times Branch daily. raltegravir 2021-0 Yes [id number] 400mg Take 1 [facility] (ISENTRESS) 3-28 tablet by ity of 400 mg 00:00: mouth 2 [place] tablet 00 (two) Medical times Branch daily. raltegravir 2021-0 Yes [id number] 400mg Take 1 [facility] (ISENTRESS) 3-28 tablet by ity of 400 mg 00:00: mouth 2 [place] tablet 00 (two) Medical times Branch daily. raltegravir 2021-0 2022- No [id number] 400mg Take 1 [facility] (ISENTRESS) 3-28 05-08 tablet by it y of 400 mg 00:00: 00:00 mouth 2 [place] tablet 00 :00 (two) Medical times Branch daily. LORazepam 1 2021-2021- No [id number] 1mg Take 1 [facility] mg tablet 3-21 [...] times a tablet day. emtricitabi 2021- No [id number] Take one [facility] ne-tenofovi -20 09-12 po daily ity of r alafen 00:00: 00:00 [place] (DESCOVY) 00 :00 Medical tablet Branch metoprolol Yes [id number] Take 1 [facility] tartrate 7-26 [facility] (Lopressor) 00:00: (100 mg 100 MG 00 total) by tablet mouth 2 (two) times a day AND 0.5 tablets (50 mg total) every night. metoprolol Yes [id number] Take 1 [facility] tartrate 7-26 [facility] [...] area in groin) hydrALAZINE 0 Yes 50mg Q.[id number] Take 50 mg [facility] (APRESOLINE 7-19 [id number] [address] [facility] ) 50 MG [...] (affected area in groin) hydrALAZINE Yes 50mg Q.[id number] Take 50 mg [facility] (APRESOLINE 7-19 [id number] [facility] mouth [facility] ) 50 MG [...] area in groin) hydrALAZINE 0 Yes 50mg Q.[id number] Take 50 mg [facility] (APRESOLINE 7-19 [id number] [facility] mouth 3 [facility] ) 50 MG [...] area in groin) hydrALAZINE 2021-0 Yes 50mg Q.[id number] Take 50 mg [facility] (APRESOLINE 7-19 [id number] [facility] mouth [facility] ) 50 MG [...] area in groin) hydrALAZINE 0 Yes 50mg Q.[id number] Take 50 mg [facility] (APRESOLINE 7-19 [id number] [facility] mouth 3 [facility] ) 50 MG [...] area in groin) hydrALAZINE 0 Yes 50mg Q.[id number] Take 50 mg [facility] (APRESOLINE 7-19 [id number] [address] mouth [facility] ) 50 MG [...] area in groin) hydrALAZINE 0 Yes 50mg Q.[id number] Take 50 mg [facility] (APRESOLINE 7-19 [id number] [facility] mouth [facility] ) 50 MG [...] (affected area in groin) hydrALAZINE Yes 50mg Q.[id number] Take 50 mg [facility] (APRESOLINE 7-19 [id number] [facility] mouth [facility] ) 50 MG [...] (affected area in groin) hydrALAZINE Yes 50mg Q.[id number] Take 50 mg [facility] (APRESOLINE - [id number] by mouth 3 st ) 50 MG [...] area in groin) hydrALAZINE 0 Yes 50mg Q.[id number] Take 50 mg [facility] (APRESOLINE 7-19 [id number] [address] mouth 3 [facility] ) 50 MG [...] area in groin) hydrALAZINE 0 Yes 50mg Q.[id number] Take 50 mg [facility] (APRESOLINE 7-19 [id number] [facility] mouth [facility] ) 50 MG [...] (affected area in groin) hydrALAZINE Yes 50mg Q.[id number] Take 50 mg [facility] (APRESOLINE -19 [id number] [facility] mouth [facility] ) 50 MG [...] area in groin) hydrALAZINE 0 Yes 50mg Q.[id number] Take 50 mg [facility] (APRESOLINE -19 [id number] [facility] mouth [facility] ) 50 MG [...] area in groin) hydrALAZINE 2021-0 Yes 50mg Q.[id number] Take 50 mg [facility] (APRESOLINE 7-19 [id number] [address] mouth 3 [facility] ) 50 MG [...] (affected area in groin) hydrALAZINE Yes 50mg Q.[id number] Take 50 mg [facility] (APRESOLINE 7-19 [id number] [facility] mouth 3 [facility] ) 50 MG [...] area in groin) hydrALAZINE 0 Yes 50mg Q.[id number] Take 50 mg [facility] (APRESOLINE - [id number] by mouth 3 st ) 50 MG [...] area in groin) hydrALAZINE 0 Yes 50mg Q.18381305 Take 50 mg [facility] (APRESOLINE 7-19 [id number] [facility] mouth [facility] ) 50 MG [...] area in groin) hydrALAZINE 0 Yes 50mg Q.[id number] Take 50 mg [facility] (APRESOLINE 7-19 [id number] mouth [facility] ) 50 MG [...] area in groin) hydrALAZINE 0 Yes 50mg Q.[id number] Take 50 mg [facility] (APRESOLINE 7-19 [id number] [facility] mouth [facility] ) 50 MG [...] area in groin) hydrALAZINE 2020-0 Yes 50mg Q.[id number] Take 50 mg [facility] (APRESOLINE 7-19 [id number] [address] mouth [facility] [address] ) 50 MG [...] area in groin) hydrALAZINE 0 Yes 50mg Q.[id number] Take 50 mg [facility] (APRESOLINE 7-19 [id number] [address] mouth [facility] ) 50 MG [...] (affected area in groin) hydrALAZINE Yes 50mg Q.[id number] Take 50 mg [facility] (APRESOLINE 7-19 [id number] mouth 3 [facility] ) 50 MG [...] area in groin) hydrALAZINE 0 Yes 50mg Q.65771165 Take 50 mg [facility] (APRESOLINE -19 [id number] by mouth [facility] ) 50 MG [...] area in groin) hydrALAZINE 0 Yes 50mg Q.[id number] Take 50 mg [facility] (APRESOLINE 7-19 [id number] [address] mouth [facility] ) 50 MG [...] area in groin) hydrALAZINE 0 Yes 50mg Q.[id number] Take 50 mg [facility] (APRESOLINE 7-19 [id number] by mouth 3 [facility] ) 50 MG [...] (affected area in groin) hydrALAZINE Yes 50mg Q.00156047 Take 50 mg [facility] (APRESOLINE 7-19 [id number] [facility] mouth 3 [facility] ) 50 MG [...] area in groin) hydrALAZINE 2020-0 Yes 50mg Q.[id number] Take 50 mg [facility] (APRESOLINE -19 [id number] [facility] mouth [facility] ) 50 MG [...] area in groin) hydrALAZINE 0 Yes 50mg Q.[id number] Take 50 mg [facility] (APRESOLINE 7-19 [id number] [facility] mouth [facility] ) 50 MG [...] (affected area in groin) hydrALAZINE Yes 50mg Q.[id number] Take 50 mg [facility] (APRESOLINE - [id number] by mouth 3 st ) 50 MG [...] area in groin) hydrALAZINE 0 Yes 50mg Q.[id number] Take 50 mg [facility] (APRESOLINE -19 [id number] by mouth [facility] ) 50 MG [...] area in groin) hydrALAZINE 2021-0 Yes 50mg Q.[id number] Take 50 mg [facility] (APRESOLINE 7-19 [id number] [facility] mouth 3 [facility] ) 50 MG [...] (affected area in groin) hydrALAZINE Yes 50mg Q.[id number] Take 50 mg [facility] (APRESOLINE 7-19 [id number] mouth 3 [facility] ) 50 MG [...] area in groin) hydrALAZINE 0 Yes 50mg Q.[id number] Take 50 mg [facility] (APRESOLINE - [id number] by mouth 3 st ) 50 MG [...] area in groin) hydrALAZINE 0 Yes 50mg Q.[id number] Take 50 mg [facility] (APRESOLINE 7-19 [id number] [address] mouth [facility] ) 50 MG [...] area in groin) hydrALAZINE 0 Yes 50mg Q.[id number] Take 50 mg [facility] (APRESOLINE 7-19 [id number] [facility] mouth [facility] ) 50 MG [...] (affected area in groin) hydrALAZINE Yes 50mg Q.10675127 Take 50 mg [facility] (APRESOLINE 7-19 [id number] [address] mouth 3 [facility] ) 50 MG [...] area in groin) hydrALAZINE 0 Yes 50mg Q.[id number] Take 50 mg [facility] (APRESOLINE 7-[id number] mouth [facility] [address] ) 50 MG [...] area in groin) hydrALAZINE 0 Yes 50mg Q.44027012 Take 50 mg [facility] (APRESOLINE 7-19 [id number] [facility] mouth 3 [facility] ) 50 MG [...] (affected area in groin) hydrALAZINE Yes 50mg Q.[id number] Take 50 mg [facility] (APRESOLINE 7-19 [id number] by mouth 3 [facility] ) 50 MG [...] area in groin) hydrALAZINE 0 Yes 50mg Q.[id number] Take 50 mg [facility] (APRESOLINE 7-19 [id number] [facility] mouth [facility] ) 50 MG [...] area in groin) hydrALAZINE 2020-0 Yes 50mg Q.[id number] Take 50 mg [facility] (APRESOLINE 7-19 [id number] [facility] mouth [facility] ) 50 MG [...] (affected area in groin) hydrALAZINE Yes 50mg Q.[id number] Take 50 mg [facility] (APRESOLINE 7-19 [id number] [address] mouth 3 [facility] ) 50 MG [...] (affected area in groin) hydrALAZINE Yes 50mg Q.[id number] Take 50 mg [facility] (APRESOLINE 7-19 [id number] by mouth 3 [facility] ) 50 MG [...] area in groin) hydrALAZINE 0 Yes 50mg Q.97306076 Take 50 mg [facility] (APRESOLINE 7-[id number] mouth 3 [address] ) 50 MG [...] (affected area in groin) hydrALAZINE Yes 50mg Q.[id number] Take 50 mg [facility] (APRESOLINE 7-[id number] mouth 3 [facility] ) 50 MG [...] (affected area in groin) hydrALAZINE Yes 50mg Q.[id number] Take 50 mg [facility] (APRESOLINE 7-19 [id number] [address] mouth 3 [facility] ) 50 MG [...] area in groin) hydrALAZINE 0 Yes 50mg Q.69302585 Take 50 mg [facility] (APRESOLINE 7-19 [id number] [address] mouth 3 [facility] ) 50 MG [...] (affected area in groin) hydrALAZINE Yes 50mg Q.[id number] Take 50 mg [facility] (APRESOLINE 7-[id number] mouth 3 [address] ) 50 MG [...] (affected area in groin) hydrALAZINE Yes 50mg Q.[id number] Take 50 mg [facility] (APRESOLINE 7-19 [id number] mouth [facility] ) 50 MG [...] area in groin) hydrALAZINE 0 Yes 50mg Q.[id number] Take 50 mg [facility] (APRESOLINE 7-[id number] [address] mouth [facility] ) 50 MG [...] area in groin) hydrALAZINE 0 Yes 50mg Q.10312172 Take 50 mg [facility] (APRESOLINE 7-[id number] mouth [facility] ) 50 MG [...] (affected area in groin) hydrALAZINE Yes 50mg Q.[id number] Take 50 mg [facility] (APRESOLINE 7-[id number] [address] mouth [facility] ) 50 MG [...] (affected area in groin) hydrALAZINE Yes 50mg Q.34792506 Take 50 mg [facility] (APRESOLINE 7-[id number] mouth 3 [facility] ) 50 MG [...] area in groin) hydrALAZINE 2021-0 Yes 50mg Q.05817097 Take 50 mg [facility] (APRESOLINE 7-[id number] mouth [facility] [address] ) 50 MG [...] (affected area in groin) hydrALAZINE Yes 50mg Q.[id number] Take 50 mg [facility] (APRESOLINE 7-[id number] mouth 3 [address] ) 50 MG [...] (affected area in groin) hydrALAZINE Yes 50mg Q.44382426 Take 50 mg [facility] (APRESOLINE 7-[id number] mouth [facility] ) 50 MG [...] area in groin) hydrALAZINE 0 Yes 50mg Q.[id number] Take 50 mg [facility] (APRESOLINE 7-[id number] mouth [facility] ) 50 MG [...] area in groin) hydrALAZINE 0 Yes 50mg Q.[id number] Take 50 mg [facility] (APRESOLINE 7-[id number] mouth [facility] [address] ) 50 MG [...] (affected area in groin) hydrALAZINE Yes 50mg Q.[id number] Take 50 mg [facility] (APRESOLINE - [id number] by mouth 3 st ) 50 MG [...] area in groin) hydrALAZINE 0 Yes 50mg Q.[id number] Take 50 mg [facility] (APRESOLINE 7-[id number] mouth [facility] ) 50 MG [...] area in groin) hydrALAZINE 0 Yes 50mg Q.[id number] Take 50 mg [facility] (APRESOLINE 7-[id number] mouth [facility] ) 50 MG [...] (affected area in groin) hydrALAZINE Yes 50mg Q.[id number] Take 50 mg [facility] (APRESOLINE 7-[id number] mouth [facility] [address] ) 50 MG [...] (affected area in groin) hydrALAZINE Yes 50mg Q.[id number] Take 50 mg [facility] (APRESOLINE 7-[id number] mouth [facility] ) 50 MG [...] area in groin) hydrALAZINE 2020-0 Yes 50mg Q.[id number] Take 50 mg [facility] (APRESOLINE 7-[id number] mouth [facility] ) 50 MG [...] (affected area in groin) hydrALAZINE Yes 50mg Q.[id number] Take 50 mg [facility] (APRESOLINE 7-[id number] mouth [address] ) 50 MG [...] area in groin) hydrALAZINE 0 Yes 50mg Q.[id number] Take 50 mg [facility] (APRESOLINE 7-[id number] mouth [facility] ) 50 MG [...] area in groin) hydrALAZINE 0 Yes 50mg Q.[id number] Take 50 mg [facility] (APRESOLINE 7-19 [id number] mouth [facility] ) 50 MG [...] [facility] 25 l nystatin-tr 0 Yes [id number] Apply to [facility] iamcinolone 7-06 area(s) 3 ity of cream 00:00: (three) [place] 00 times Medical daily. Branch nystatin-tr 2021-0 Yes [id number] Apply to [facility] iamcinolone 7-06 area(s) 3 ity of cream 00:00: (three) [place] 00 times Medical daily. Branch nystatin-tr 2021-0 Yes [id number] Apply to [facility] iamcinolone 7-06 area(s) 3 ity of cream 00:00: (three) [place] 00 times Medical daily. Branch nystatin-tr 2021-0 Yes [id number] Apply to [facility] iamcinolone 7-06 area(s) 3 ity of cream 00:00: (three) [place] 00 times Medical daily. Branch nystatin-tr 2021-0 Yes [id number] Apply to [facility] iamcinolone 7-06 area(s) 3 ity of cream 00:00: (three) [place] 00 times Medical daily. Branch nystatin-tr 2021-0 Yes [id number] Apply to [facility] iamcinolone 7-06 area(s) 3 ity of cream 00:00: (three) [place] 00 times Medical daily. Branch nystatin-tr 2021-0 Yes [id number] Apply to [facility] iamcinolone 7-06 area(s) 3 ity of cream 00:00: (three) [place] 00 times Medical daily. Branch nystatin-tr 2021-0 Yes [id number] Apply to [facility] iamcinolone 7-06 area(s) 3 ity of cream 00:00: (three) [place] 00 times Medical daily. Branch nystatin-tr 2021-0 Yes [id number] Apply to [facility] iamcinolone 7-06 area(s) 3 ity of cream 00:00: (three) [place] 00 times Medical daily. Branch nystatin-tr 2021-0 Yes [id number] Apply to [facility] iamcinolone 7-06 area(s) 3 ity of cream 00:00: (three) [place] 00 times Medical daily. Branch nystatin-tr 2021-0 Yes [id number] Apply to [facility] iamcinolone 7-06 area(s) 3 ity of cream 00:00: (three) [place] 00 times Medical daily. Branch nystatin-tr 2021-0 Yes [id number] Apply to [facility] iamcinolone 7-06 area(s) 3 ity of cream 00:00: (three) [place] 00 times Medical daily. Branch nystatin-tr 2021-0 Yes [id number] Apply to [facility] iamcinolone 7-06 area(s) 3 ity of cream 00:00: (three) [place] 00 times Medical daily. Branch nystatin-tr 2021-0 Yes [id number] Apply to [facility] iamcinolone 7-06 area(s) 3 ity of cream 00:00: (three) [place] 00 times Medical daily. Branch nystatin-tr 2021-0 Yes [id number] Apply to [facility] iamcinolone 7-06 area(s) 3 ity of cream 00:00: (three) [place] 00 times Medical daily. Branch nystatin-tr 2021-0 Yes [id number] Apply to [facility] iamcinolone 7-06 area(s) 3 ity of cream 00:00: (three) [place] 00 times Medical daily. Branch nystatin-tr 2021-0 Yes [id number] Apply to [facility] iamcinolone 7-06 area(s) 3 ity of cream 00:00: (three) [place] 00 times Medical daily. Branch nystatin-tr 2021-0 Yes [id number] Apply to [facility] iamcinolone 7-06 area(s) 3 ity of cream 00:00: (three) [place] 00 times Medical daily. Branch nystatin-tr 2021-0 Yes [id number] Apply to [facility] iamcinolone 7-06 area(s) 3 ity of cream 00:00: (three) [place] 00 times Medical daily. Branch nystatin-tr 2021-0 Yes [id number] Apply to [facility] iamcinolone 7-06 area(s) 3 ity of cream 00:00: (three) [place] 00 times Medical daily. Branch nystatin-tr 2021-0 Yes [id number] Apply to [facility] iamcinolone 7-06 area(s) 3 ity of cream 00:00: (three) [place] 00 times Medical daily. Branch nystatin-tr 2021-0 Yes [id number] Apply to [facility] iamcinolone 7-06 area(s) 3 ity of cream 00:00: (three) [place] 00 times Medical daily. Branch nystatin-tr 2021-0 Yes [id number] Apply to [facility] iamcinolone 7-06 area(s) 3 ity of cream 00:00: (three) [place] 00 times Medical daily. Branch nystatin-tr 0 Yes [id number] Apply to [facility] 11-25 area(s) 3 ity of cream 00:00: (three) [place] 00 times Medical daily. Branch budesonide- 0 2021- No 1{puff} QD Inhale 1 [facility] formoteroL 625 06-[address] (SYMBICORT) 14:37: 00:00 morning. H ospita 160-4.5 02 :00 l mcg/actuati on inhaler hydrALAZINE 0 Yes [id number] 50mg Q.[id number] Take 1 [facility] (Apresoline 6-11 [id number] tablet (50 Health ) 50 MG 00:00: 3D mg total) tablet 00 by mouth 3 (three) times a day. hydrALAZINE Yes [id number] 50mg Q.12112584 Take 1 [facility] (Apresoline 6-11 [id number] tablet (50 Health ) 50 MG 00:00: [...] % 00:00: ointment 00 nystatin 2020- No [id number] Q.25D Take 5 mL [facility] (MYCOSTATIN 10-06 [...] e 4-10 Tablet l 14:00: should not [place] 00 be chewed or crushed. (Same as: Protonix) Amiodarone No Notes: [facility]or ia 4-10 (Same as: l 14:00: Cordarone) [place] Amlodipine No Notes: [facility] 4-10 (Same as: l 14:00: Norvasc) [place] emtricitabi No Notes: Caesar lisa ne 200 MG / 4-10 (Same as: l tenofovir 14:00: Descovy) Herm ariel alafenamide 00 Non-formul 25 MG Oral nancy Tablet [Descovy] Sertraline No Notes: [facility] 4-10 (Same as: l 14:00: Zoloft) [place] 00 Sertraline No Notes: [facility] 4-10 (Same as: l 14:00: Zoloft) [place] pantoprazol No Notes: [facility] lisa e 4-10 Tablet l 14:00: should not [place] 00 be chewed or crushed. (Same as: Protonix) Amiodarone No Notes: [facility] 4-10 (Same as: l 14:00: Cordarone) [place] 00 Amlodipine No Notes: [facility] 4-10 [...] ia 4-10 (Same as: l 14:00: Cordarone) [place] 00 Amlodipine No Notes: [facility] 4-10 [...] e 4-10 Tablet l 14:00: should not [place] 00 be chewed or crushed. (Same as: Protonix) Amiodarone No Notes: [facility] 4-10 (Same as: l 14:00: Cordarone) [place] Amlodipine No Notes: [facility] 4-10 (Same as: l 14:00: Norvasc) [place] emtricitabi No Notes: Caesar lisa ne 200 MG / 4-10 (Same as: l tenofovir 14:00: Descovy) Herm ariel alafenamide 00 Non-formul 25 MG Oral nancy Tablet [Descovy] Sertraline No Notes: [facility] 4-10 (Same as: l 14:00: Zoloft) [place] pantoprazol No Notes: [place] lisa e 4-10 Tablet l 14:00: should not [place] 00 be chewed or crushed. (Same as: Protonix) Amiodarone No Notes: [facility] ia 4-10 (Same as: l 14:00: Cordarone) [place] Amlodipine No Notes: [facility] 4-10 (Same as: l 14:00: Norvasc) [place] emtricitabi No Notes: Caesar lisa ne 200 MG / 4-10 (Same as: l tenofovir 14:00: Descovy) Herm ariel alafenamide 00 Non-formul 25 MG Oral nancy Tablet [Descovy] Sertraline No Notes: [facility] 4-10 (Same as: l 14:00: Zoloft) [place] 00 pantoprazol No Notes: [place] lisa e 4-10 Tablet l 14:00: should not [place] 00 be chewed or crushed. (Same as: [...] 0.9% 4-10 (Same as: l 02:00: BD [place] Posiflush) Eliquis No Notes: [facility] 4-10 Same as: l 02:00: Eliquis [place] 00 Hydralazine No Notes: Caesar lisa Hydrochlori [...] [facility]oria 4-10 Same as: l 02:00: Eliquis [place] 00 Hydralazine No Notes: [place] lisa Hydrochlori 4-10 (Same as: l de 50 MG 02:00: Apresoline Her mitchell Oral Tablet 00 ) May interfere w/enteral feedings Take With Food Sucralfate No Notes: May M emoria 4-10 interfere l 02:00: w/enteral [place] 00 feeds - Take 1 hr before [...] Memoria 4-10 Same as: l 02:00: Eliquis [place] Hydralazine No Notes: Caesar lisa Hydrochlori 4-10 [...] Memoria 4-10 Same as: l 02:00: Eliquis [place] 00 Hydralazine No Notes: Caesar lisa Hydrochlori [...] 0.9% 4-10 (Same as: l 02:00: BD [place] 00 Posiflush) Eliquis No Notes: [facility]oria 4-10 [...] Memoria 4-10 Same as: l 02:00: Eliquis [place] 00 Hydralazine No Notes: Caesar lisa Hydrochlori [...] Memoria 4-10 Same as: l 02:00: Eliquis [place] 00 Hydralazine No Notes: Caesar lisa Hydrochlori 4-10 (Same as: l de 50 MG 02:00: Apresoline Her mitchell Oral Tablet 00 ) May interfere w/enteral feedings Take With Food acetaminoph No Notes: Do M emoria en-codeine 4-10 not exceed l #3 00:12: 4gm/day of [place] 00 acetaminop hen. (Same as: Tylenol with Codeine # 3) acetaminoph No Notes: Do M emoria en-codeine 4-10 not exceed l #3 00:12: 4gm/day of [place] acetaminop hen. (Same as: Tylenol with Codeine # 3) acetaminoph No Notes: Do M emoria en-codeine 4-10 not exceed l #3 00:12: 4gm/day of [place] acetaminop hen. (Same as: Tylenol with Codeine # 3) acetaminoph No Notes: Do M emoria en-codeine 4-10 not exceed l #3 00:12: 4gm/day of [place] acetaminop hen. (Same as: Tylenol with Codeine [...] oria 4-09 tab, l 22:00: Route: PO, [place] Drug form: TAB, BID, Dosing Weight 97.273, [...] oria 4-09 tab, l 22:00: Route: PO, [place] 00 Drug form: TAB, BID, Dosing Weight 97.273, kg, Start date: 08/29/20 17:00:00 CDT, Duration: 30 day, Stop date: 09/28/20 9:00:00 CDT metoprolol 1-0 No 100 mg, 1 Me moria tartrate 4-09 tab, l 22:00: Route: PO, [place] Drug form: TAB, BID, Dosing Weight 97.273, [...] tartrate 4-09 tab, l 22:00: Route: PO, [place] 00 Drug form: TAB, BID, Dosing Weight [...] Stop date: 09/28/20 9:00:00 CDT, 0 Morphine 2020- No Notes: Memoria 4-09 (Same l 17:07: as:MORPhin [place] 00 e Sulfate) Morphine No Notes: Memoria [...] Notes: Memoria 4- (Same l 17:07: as:MORPhin [place] 00 e Sulfate) Morphine 2020-0 No Notes: [...] tab, PO, l oral 15:27: Daily, # [place] enteric 00 30 tab, 0 coated Refill(s), tablet Pharmacy: [facility] 149, 162.56, cm, 08/29/20 5:30:00 CDT, Height, 97.273, kg, 08/29/20 5:30:00 CDT, Weight pantoprazol 2020-0 Yes 40 mg = 1 M emoria e 40 mg 4-09 tab, PO, l oral 15:27: Daily, # Marty enteric 00 30 tab, 0 coated Refill(s), tablet Pharmacy: [facility] 149, 162.56, cm, 08/29/20 5:30:00 CDT, Height, 97.273, kg, 08/29/20 5:30:00 CDT, Weight pantoprazol 2020-0 Yes 40 mg = 1 M emoria e 40 mg 4-09 tab, PO, l oral 15:27: Daily, # [place] enteric 00 30 tab, 0 coated Refill(s), tablet Pharmacy: [facility] 149, 162.56, cm, 08/29/20 5:30:00 CDT, Height, 97.273, kg, 08/29/20 5:30:00 CDT, Weight pantoprazol 2021-0 Yes 40 mg = 1 M emoria e 40 mg 4-09 tab, PO, l oral 15:27: Daily, # [place] enteric 00 30 tab, 0 coated Refill(s), tablet Pharmacy: [facility] 149, 162.56, cm, 08/29/20 5:30:00 CDT, Height, 97.273, kg, 08/29/20 5:30:00 CDT, Weight pantoprazol 1-0 Yes 40 mg = 1 M emoria e 40 mg 4-09 tab, PO, l oral 15:27: Daily, # [place] enteric 00 30 tab, 0 coated Refill(s), tablet [facility]: [facility], 162.56, cm, 08/29/20 5:30:00 CDT, Height, 97.273, kg, 08/29/20 5:30:00 CDT, Weight pantoprazol 1-0 Yes 40 mg = 1 M emoria e 40 mg 4-09 tab, PO, l oral 15:27: Daily, # Marty enteric 00 30 tab, 0 coated Refill(s), tablet [facility], 162.56, cm, 08/29/20 5:30:00 CDT, Height, 97.273, kg, 08/29/20 5:30:00 CDT, Weight pantoprazol 1-0 Yes 40 mg = 1 M emoria e 40 mg 4-09 tab, PO, l oral 15:27: Daily, # Marty enteric 00 30 tab, 0 coated Refill(s), tablet Pharm[facility]: [facility] [place], 162.56, cm, 08/29/20 5:30:00 CDT, Height, 97.273, kg, 08/29/20 5:30:00 CDT, Weight pantoprazol 1-0 No 40 mg = 1 M emoria e 40 mg 4-09 tab, PO, l oral 15:26: Daily, # [place] enteric 00 30 tab, 0 coated Refill(s) tablet sucralfate 2020-0 Yes 1 gm = 1 Mem oria 1 g oral 4-09 tab, PO, l tablet 15:26: Q12H, # 28 Skylar nn 00 tab, 0 Refill(s), Pharmacy: [facility] 149, 162.56, cm, 08/29/20 5:30:00 CDT, Height, 97.273, kg, 08/29/20 5:30:00 CDT, Weight pantoprazol 1-0 No 40 mg = 1 M emoria e 40 mg 4-09 tab, PO, l oral 15:26: Daily, # [place] enteric 00 30 tab, 0 coated Refill(s) tablet sucralfate 2020-0 Yes 1 gm = 1 Mem oria 1 g oral 4-09 tab, PO, l tablet 15:26: Q12H, # 28 Skylar nn 00 tab, 0 Refill(s), Pharmacy: [facility] 149, 162.56, cm, 08/29/20 5:30:00 CDT, Height, 97.273, kg, 08/29/20 5:30:00 CDT, Weight pantoprazol 2020-0 No 40 mg = 1 M emoria e 40 mg 4-09 tab, PO, l oral 15:26: Daily, # [place] enteric 00 30 tab, 0 coated Refill(s) tablet sucralfate 1-0 Yes 1 gm = 1 Mem oria 1 g oral 4-09 tab, PO, l tablet 15:26: Q12H, # 28 Skylar nn 00 tab, 0 Refill(s), Pharmacy: [facility] 149, 162.56, cm, 08/29/20 5:30:00 CDT, [...] Skylar nn 00 tab, 0 Refill(s), Pharmacy: [facility] 149, 162.56, cm, 08/29/20 5:30:00 CDT, Height, 97.273, kg, 08/29/20 5:30:00 CDT, Weight pantoprazol 2021-0 No 40 mg = 1 M emoria e 40 mg 4-09 tab, PO, l oral 15:26: Daily, # [place] enteric 00 30 tab, 0 coated Refill(s) tablet sucralfate Yes 1 gm = 1 Mem oria 1 g oral 4-09 tab, PO, l tablet 15:26: Q12H, # 28 Skylar nn 00 tab, 0 Refill(s), Pharmacy: [facility] 149, 162.56, cm, 08/29/20 5:30:00 CDT, [...] Skylar nn 00 tab, 0 Refill(s), Pharmacy: [facility] 149, 162.56, cm, 08/29/20 5:30:00 CDT, Height, 97.273, kg, 08/29/20 5:30:00 CDT, Weight pantoprazol No 40 mg = 1 M emoria e 40 mg 4-09 tab, PO, l oral 15:26: Daily, # [place] enteric 00 30 tab, 0 coated Refill(s) tablet sucralfate Yes 1 gm = 1 Mem oria 1 g oral 4-09 tab, PO, l tablet 15:26: Q12H, # 28 Skylar nn 00 tab, 0 Refill(s), Pharmacy: [facility] 149, 162.56, cm, 08/29/20 5:30:00 CDT, Height, 97.273, kg, 08/29/20 5:30:00 CDT, Weight Saline No Notes: Memoria Flush 0.9% 08-29 (Same as: l 15:25: BD [place] 00 Posiflush) Lorazepam No Notes: Memori a - (Same as: l 15:25: Ativan) Saline No Notes: Memoria Flush 0.9% 4-09 (Same as: l 15:25: BD [place] 00 Posiflush) Lorazepam No Notes: Memori a 4-09 (Same as: l 15:25: Ativan) Saline No Notes: Memoria Flush 0.9% 4-09 (Same as: l 15:25: BD Marty 00 Posiflush) Saline No Notes: Memoria Flush 0.9% 4-09 (Same as: l 15:25: BD [place] 00 Posiflush) Lorazepam No Notes: Memori a 4-09 (Same as: l 15:25: Ativan) Lorazepam No Notes: Memori a 4-09 (Same as: l 15:25: Ativan) Saline No Notes: Memoria Flush 0.9% 4-09 (Same as: l 15:25: BD [place] 00 Posiflush) Lorazepam No Notes: Memori a [...] Drug form: l mg + 15:00: INJ, [place] Dosing Weight 97.3, kg, Start date: 08/29/20 10:00:00 CDT, Stop date: 08/29/20 11:00:00 CDT Isuprel HCl 2020-0 No Route: IV, Memoria (ANES) 0.2 08-29 Drug form: l mg + 15:00: INJ, Marty Dosing Weight 97.3, kg, Start date: 08/29/20 10:00:00 CDT, Stop date: 08/29/20 11:00:00 CDT Isuprel HCl 0 No Route: IV, Memoria (ANES) 0.2 08-29 Drug form: l mg + 15:00: INJ, [place] 00 Dosing Weight 97.3, kg, Start date: 08/29/20 10:00:00 CDT, Stop date: 08/29/20 11:00:00 CDT Isuprel HCl 2020-0 No Route: IV, Memoria (ANES) 0.2 08-29 Drug form: l mg + 15:00: INJ, [place] 00 Dosing Weight 97.3, kg, Start date: [...] 08-29 Drug form: l 14:49: INJ, ONCE, [place] 00 Stop date: 08/29/20 9:49:00 CDT heparin [...] 08-29 Drug form: l 14:29: INJ, ONCE, [place] 00 Stop date: 08/29/20 9:29:00 CDT propofol 2021-0 No Route: IV, Mem oria (ANES) 08-29 Drug form: l 14:29: INJ, ONCE, Stop date: 08/29/20 9:29:00 CDT propofol 2021-0 No Route: IV, Mem oria (ANES) 08-29 Drug form: l 14:29: INJ, ONCE, Stop date: 08/29/20 9:29:00 CDT propofol 2021-0 No Route: IV, Mem oria (ANES) 08-29 Drug form: l 14:29: INJ, ONCE, [place] 00 Stop date: 08/29/20 9:29:00 CDT propofol 202-0 No Route: IV, Mem oria (ANES) 08-29 Drug form: l 14:29: INJ, ONCE, Stop date: 08/29/20 9:29:00 CDT propofol 2020-0 No Route: IV, Mem oria (ANES) 08-29 Drug form: l 14:29: INJ, ONCE, [place] 00 Stop date: 08/29/20 9:29:00 CDT heparin 2020-0 [...] 08-29 Drug form: l 14:18: INJ, ONCE, [place] 00 Stop date: 08/29/20 9:18:00 CDT heparin [...] lisa 08-29 Route: l 14:01: IVP, PRN, [place] 00 Dosing Weight 97.273, kg, PRN Benzodiaze [...] 08-29 Route: PO, l 14:01: Drug form: [place] 00 TAB, ONCE, Dosing Weight 97.273, kg, [...] oria ne 08-29 Route: l 14:01: IVP, [place] 00 Q5Min, Dosing Weight 97.273, kg, PRN [...] Memori a 08-29 Route: l 14:01: IVP, [place] 00 Q2MIN, Dosing Weight 97.273, kg, PRN [...] Memori a 08-29 Route: l 14:01: IVP, [place] 00 Q5Min, Dosing Weight 97.273, kg, PRN [...] oria ne 08-29 Route: l 14:01: IVP, [place] 00 Q5Min, Dosing Weight 97.273, kg, PRN Pain Score 7-10, Start date: 08/29/20 9:01:00 CDT, Duration: 4 doses or times, Stop date: Limited # of times Flumazenil 2020-0 No 0.2 mg, Caesar lisa 08-29 Route: l 14:01: IVP, PRN, [place] 00 Dosing Weight 97.273, kg, PRN Benzodiaze pine Reversal, Initial dose, Start date: 08/29/20 9:01:00 CDT, Duration: 30 day, Stop date: 09/28/20 9:00:00 CDT Naloxone 2021-0 No 0.4 mg, Memori a 08-29 Route: l 14:01: IVP, [place] 00 Q2MIN, Dosing Weight 97.273, kg, PRN Narcotic Reversal, Start date: 08/29/20 9:01:00 CDT, Duration: 8 doses or times, Stop date: Limited # of times Ondansetron 2021-0 No 4 mg, Memor ia 08-29 Route: l 14:01: IVP, ONCE, [place] 00 Dosing Weight 97.273, kg, PRN Nausea & Vomiting, Start date: 08/29/20 9:01:00 CDT Labetalol 1-0 No 10 mg, Memori a 08-29 Route: l 14:01: IVP, [place] 00 Q5Min, Dosing Weight 97.273, kg, PRN [...] oria ne 08-29 Route: l 14:01: IVP, [place] 00 Q5Min, Dosing Weight 97.273, kg, PRN [...] lisa 08-29 Route: l 14:01: IVP, PRN, [place] Dosing Weight 97.273, kg, PRN Benzodiaze pine Reversal, Initial dose, Start date: 08/29/20 9:01:00 CDT, Duration: 30 day, Stop date: 09/28/20 9:00:00 CDT Ondansetron 2021-0 No 4 mg, Memor ia 08-29 Route: l 14:01: IVP, ONCE, [place] Dosing Weight 97.273, kg, PRN Nausea & Vomiting, Start date: 08/29/20 9:01:00 CDT Naloxone 2021-0 No 0.4 mg, Memori a 08-29 Route: l 14:01: IVP, [place] 00 Q2MIN, Dosing Weight 97.273, kg, PRN Narcotic Reversal, Start date: 08/29/20 9:01:00 CDT, Duration: 8 doses or times, Stop date: Limited # of times Ondansetron 1-0 No 4 mg, Memor ia 08-29 Route: l 14:01: IVP, ONCE, [place] Dosing Weight 97.273, kg, PRN Nausea & [...] oria ne 08-29 Route: l 14:01: IVP, [place] 00 Q5Min, Dosing Weight 97.273, kg, PRN Pain Score 7-10, Start date: 08/29/20 9:01:00 CDT, Duration: 4 doses or times, Stop date: Limited # of times Flumazenil 1-0 No 0.2 mg, Caesar lisa 08-29 Route: l 14:01: IVP, PRN, [place] 00 Dosing Weight 97.273, kg, PRN Benzodiaze pine Reversal, Initial dose, Start date: 08/29/20 9:01:00 CDT, Duration: 30 day, Stop date: 09/28/20 9:00:00 CDT Naloxone 1-0 No 0.4 mg, Memori a 08-29 Route: l 14:01: IVP, [place] 00 Q2MIN, Dosing Weight 97.273, kg, PRN [...] 08-29 Route: PO, l 14:01: Drug form: [place] 00 TAB, ONCE, Dosing Weight 97.273, kg, [...] oria ne 08-29 Route: l 14:01: IVP, [place] 00 Q5Min, Dosing Weight 97.273, kg, PRN [...] Memori a 08-29 Route: l 14:01: IVP, [place] 00 Q2MIN, Dosing Weight 97.273, kg, PRN Narcotic Reversal, Start date: 08/29/20 9:01:00 CDT, Duration: 8 doses or times, Stop date: Limited # of times Ondansetron 2020-0 No 4 mg, Memor ia 08-29 Route: l 14:01: IVP, ONCE, [place] Dosing Weight 97.273, kg, PRN Nausea & Vomiting, Start date: 08/29/20 9:01:00 CDT lidocaine 2020-0 No Route: IV, Me moria (ANES) 08-29 Drug form: l 13:52: INJ, ONCE, [place] Stop date: 08/29/20 8:52:00 CDT rocuronium 2020-0 [...] 08-29 Drug form: l 13:42: INJ, ONCE, [place] Stop date: 08/29/20 8:42:00 CDT fentaNYL 2020-0 No Route: IV, Mem oria (ANES) 08-29 Drug form: l 13:42: INJ, ONCE, [place] Stop date: 08/29/20 8:42:00 CDT fentaNYL 2020-0 [...] Drug form: l 10 13:15: INJ, Start [place] microgram date: 08/29/20 8:15:00 CDT, Stop date: [...] Drug form: l 10 13:15: INJ, Start [place] microgram 00 date: 08/29/20 8:15:00 CDT, Stop date: 08/29/20 9:15:00 CDT norepinephr 2020-0 No Route: IV, Memoria ine (ANES) 4- Drug form: l 10 13:15: INJ, Start Marty microgram date: 08/29/20 8:15:00 CDT, Stop date: 08/29/20 9:15:00 CDT norepinephr 0 No Route: IV, Memoria ine (ANES) 4 Drug form: l 10 13:15: INJ, Start [...] 4-09 Total l 0.9% IV 12:30: Volume: [place] (ANES) 1000 00 1,000, mL Start date: [...] PO, l Hydrochlori 11:42: Q24H, # 30 [place] de 150 MG 00 tab, 0 Extended Refill(s) Release Tablet 24 HR Yes 150 mg = 1 Memori a Bupropion -09 tab, PO, l Hydrochlori 11:42: Q24H, # 30 [place] de 150 MG 00 tab, 0 Extended Refill(s) Release Tablet 24 HR Yes 150 mg = 1 Memori a Bupropion - tab, PO, l Hydrochlori 11:42: Q24H, # 30 [place] de 150 MG 00 tab, 0 Extended Refill(s) Release Tablet 24 HR Yes 150 mg = 1 Memori a Bupropion -09 tab, PO, l Hydrochlori 11:42: Q24H, # 30 [place] de 150 MG 00 tab, 0 Extended Refill(s) Release Tablet 24 HR Yes 150 mg = 1 Memori a Bupropion -09 tab, PO, l Hydrochlori 11:42: Q24H, # 30 [place] de 150 MG 00 tab, 0 Extended [...] 4-09 Q12H, tab, l Tablet 11:41: 0 [place] [Eliquis] 00 Refill(s), For Atrial Fibrilatio n [...] - Q12H, tab, l Tablet 11:41: 0 [place] [Eliquis] 00 Refill(s), For Atrial Fibrilatio n apixaban 5 2020-0 Yes 5 mg, PO, Me moria MG Oral 08-29 Q12H, tab, l Tablet 11:41: 0 [place] [Eliquis] 00 Refill(s), For Atrial Fibrilatio n apixaban 5 2020-0 Yes 5 mg, PO, Me moria MG Oral - Q12H, tab, l Tablet 11:41: 0 [place] [Eliquis] 00 Refill(s), For Atrial Fibrilatio n AMIODarone 2020-0 Yes 200 mg = 1 M emoria 200 mg oral -09 tab, PO, l tablet 11:38: Daily, # Marty 00 90 tab, 3 Refill(s) AMIODarone 2020-0 Yes 200 mg = 1 M emoria 200 mg oral 4-09 tab, PO, l tablet 11:38: Daily, # [place] 00 90 tab, 3 Refill(s) AMIODarone 2020-0 Yes 200 mg = 1 M emoria 200 mg oral 4-09 tab, PO, l tablet 11:38: Daily, # Marty 00 90 tab, 3 Refill(s) AMIODarone 2020-0 Yes 200 mg = 1 M emoria 200 mg oral 4-09 tab, PO, l tablet 11:38: Daily, # [place] 00 90 tab, 3 Refill(s) AMIODarone 0 Yes 200 mg = 1 M emoria 200 mg oral 4-09 tab, PO, l tablet 11:38: Daily, # [place] 90 tab, 3 Refill(s) AMIODarone 2020-0 Yes 200 mg = 1 M emoria 200 mg oral 4-09 tab, PO, l tablet 11:38: Daily, # [place] 00 90 tab, 3 Refill(s) AMIODarone 2020-0 [...] mouth ity of 10 mg 08:06: daily. [place] [facility] albuterol 2020-0 Yes [...] 00 37.5-25 MG capsule Emtricitabi 2018-05 Yes Guilherme ARRIAGA ne-Tenofovi 1-21 200 mg-25 [facility] [...] [facility] [place] [facility] (FLUAD) PFIZER COVID-19 2020-07-23 Completed [facility] M[facility] VACCINATION 00:00:00 [facility] PFIZER COVID-19 2020-07-23 Completed [facility] MRNA VACCINATION 00:00:00 [facility] PFIZER COVID-19 2020-07-23 Completed [facility] MRNA VACCINATION 00:00:00 [facility] PFIZER COVID-19 2020-07-23 Completed [facility] MRNA VACCINATION 00:00:00 [facility] PFIZER COVID-19 2020-07-23 Completed [facility] MRNA VACCINATION 00:00:00 [facility] PFIZER COVID-19 2020-07-23 Completed [facility] MRNA VACCINATION 00:00:00 [facility] PFIZER COVID-19 2020-07-23 Completed [facility] MRNA VACCINATION 00:00:00 [facility] PFIZER COVID-19 2020-07-23 Completed [facility] MRNA VACCINATION 00:00:00 [facility] PFIZER COVID-19 2020-07-23 Completed [facility] MRNA VACCINATION 00:00:00 [facility] PFIZER COVID-19 2020-07-23 Completed [facility] MRNA VACCINATION 00:00:00 [facility] PFIZER COVID-19 2020-07-23 Completed [facility] MRNA VACCINATION 00:00:00 [facility] PFIZER COVID-19 2020-07-23 Completed [facility] MRNA VACCINATION 00:00:00 [facility] PFIZER COVID-19 2020-07-23 Completed [facility] MRNA VACCINATION 00:00:00 [facility] PFIZER COVID-19 2020-07-23 Completed [facility] MRNA VACCINATION 00:00:00 [facility] PFIZER COVID-19 2020-07-23 Completed [facility] MRNA VACCINATION 00:00:00 [facility] PFIZER COVID-19 2020-07-23 Completed [facility] MRNA VACCINATION 00:00:00 [facility] PFIZER COVID-19 2020-07-23 Completed [facility] MRNA VACCINATION 00:00:00 [facility] PFIZER COVID-19 2020-07-23 Completed [facility] MRNA VACCINATION 00:00:00 [facility] PFIZER COVID-19 2020-07-23 Completed [facility] MRNA VACCINATION 00:00:00 [facility] PFIZER COVID-19 2020-07-23 Completed [facility] MRNA VACCINATION 00:00:00 [facility] PFIZER COVID-19 2020-07-23 Completed [facility] MRNA VACCINATION 00:00:00 [facility] SARS-COV-2 COVID-19 2020-07-23 Completed [facility] PFIZER VACCINE 00:00:00 [facility] PFIZER COVID-19 2020-07-23 Completed [facility] MRNA VACCINATION 00:00:00 [facility] SARS-COV-2 COVID-19 2020-07-23 Completed [facility] of PFIZER VACCINE 00:00:00 [facility] SARS-COV-2 COVID-19 2020-07-23 Completed [facility] of PFIZER VACCINE 00:00:00 [facility] PFIZER COVID-19 2020-07-23 Completed [facility] MRNA VACCINATION 00:00:00 [facility] SARS-COV-2 COVID-19 2020-07-23 Completed [facility] of PFIZER VACCINE 00:00:00 [facility] PFIZER COVID-19 2020-07-23 Completed [facility] MRNA VACCINATION 00:00:00 [facility] SARS-COV-2 COVID-19 2020-07-23 Completed [facility] of PFIZER VACCINE 00:00:00 [facility] PFIZER COVID-19 2020-07-23 Completed [facility] M[facility] VACCINATION 00:00:00 Hospital SARS-COV-2 COVID-19 2020-07-23 Completed [facility] PFIZER VACCINE 00:00:00 [facility] SARS-COV-2 COVID-19 2020-07-23 Completed [facility] of PFIZER VACCINE 00:00:00 [facility] PFIZER COVID-19 2020-07-23 Completed [facility] M[facility] VACCINATION 00:00:00 Hospital SARS-COV-2 COVID-19 2020-07-23 Completed [facility] of PFIZER VACCINE 00:00:00 [facility] PFIZER COVID-19 2020-07-23 Completed [facility] MRNA VACCINATION 00:00:00 [facility] SARS-COV-2 COVID-19 2020-07-23 Completed [facility] of PFIZER VACCINE 00:00:00 [facility] SARS-COV-2 COVID-19 2020-07-23 Completed [facility] of PFIZER VACCINE 00:00:00 [facility] PFIZER COVID-19 2020-07-23 Completed [facility] MRNA VACCINATION 00:00:00 Hospital SARS-COV-2 COVID-19 2020-07-23 Completed [facility] PFIZER VACCINE 00:00:00 [facility] PFIZER COVID-19 2020-07-23 Completed [facility] M[facility] VACCINATION 00:00:00 Hospital SARS-COV-2 COVID-19 2020-07-23 Completed [facility] of PFIZER VACCINE 00:00:00 [facility] SARS-COV-2 COVID-19 2020-07-23 Completed [facility] of PFIZER VACCINE 00:00:00 [facility] PFIZER COVID-19 2020-07-23 Completed [facility] M[facility] VACCINATION 00:00:00 Hospital SARS-COV-2 COVID-19 2020-07-23 Completed [facility] of PFIZER VACCINE 00:00:00 [facility] SARS-COV-2 COVID-19 2020-07-23 Completed [facility] of PFIZER VACCINE 00:00:00 [facility] PFIZER COVID-19 2020-07-23 Completed [facility] M[facility] VACCINATION 00:00:00 Hospital SARS-COV-2 COVID-19 2020-07-23 Completed [facility] of PFIZER VACCINE 00:00:00 [facility] PFIZER COVID-19 2020-07-23 Completed [facility] MRNA VACCINATION 00:00:00 [facility] SARS-COV-2 COVID-19 2020-07-23 Completed [facility] of PFIZER VACCINE 00:00:00 [facility] PFIZER COVID-19 2020-07-23 Completed [facility] MRNA VACCINATION 00:00:00 [facility] SARS-COV-2 COVID-19 2020-07-23 Completed [facility] of PFIZER VACCINE 00:00:00 [facility] SARS-COV-2 COVID-19 2020-07-23 Completed [facility] of PFIZER VACCINE 00:00:00 [facility] PFIZER COVID-19 2020-07-23 Completed [facility] MRNA VACCINATION 00:00:00 [facility] SARS-COV-2 COVID-19 2020-07-23 Completed [facility] of PFIZER VACCINE 00:00:00 [facility] PFIZER COVID-19 2020-07-23 Completed [facility] MRNA VACCINATION 00:00:00 [facility] PFIZER COVID-19 2020-07-23 Completed [facility] MRNA VACCINATION 00:00:00 [facility] PFIZER COVID-19 2020-07-23 Completed [facility] MRNA VACCINATION 00:00:00 [facility] PFIZER COVID-19 2020-07-23 Completed [facility] MRNA VACCINATION 00:00:00 [facility] PFIZER COVID-19 2020-07-23 Completed [facility] MRNA VACCINATION 00:00:00 [facility] PFIZER COVID-19 2020-07-23 Completed [facility] MRNA VACCINATION 00:00:00 [facility] PFIZER COVID-19 2020-07-23 Completed [facility] MRNA VACCINATION 00:00:00 [facility] PFIZER COVID-19 2020-07-23 Completed [facility] MRNA VACCINATION 00:00:00 [facility] PFIZER COVID-19 2020-07-23 Completed [facility] MRNA VACCINATION 00:00:00 [facility] PFIZER COVID-19 2020-07-23 Completed [facility] MRNA VACCINATION 00:00:00 [facility] PFIZER COVID-19 2020-07-23 Completed [facility] MRNA VACCINATION 00:00:00 [facility] PFIZER COVID-19 2020-07-23 Completed [facility] MRNA VACCINATION 00:00:00 [facility] PFIZER COVID-19 2020-07-23 Completed [facility] MRNA VACCINATION 00:00:00 [facility] PFIZER COVID-19 2020-07-23 Completed [facility] MRNA VACCINATION 00:00:00 [facility] PFIZER COVID-19 2020-07-23 Completed [facility] MRNA VACCINATION 00:00:00 [facility] PFIZER COVID-19 2020-07-23 Completed [facility] MRNA VACCINATION 00:00:00 [facility] PFIZER COVID-19 2020-07-23 Completed [facility] MRNA VACCINATION 00:00:00 [facility] PFIZER COVID-19 2020-07-23 Completed [facility] MRNA VACCINATION 00:00:00 [facility] PFIZER COVID-19 2020-07-23 Completed [facility] MRNA VACCINATION 00:00:00 [facility] PFIZER COVID-19 2020-07-23 Completed [facility] MRNA VACCINATION 00:00:00 [facility] PFIZER COVID-19 2020-07-23 Completed [facility] MRNA VACCINATION 00:00:00 [facility] PFIZER COVID-19 2020-07-23 Completed [facility] MRNA VACCINATION 00:00:00 [facility] PFIZER COVID-19 2020-07-23 Completed [facility] MRNA VACCINATION 00:00:00 [facility] PFIZER COVID-19 2020-07-23 Completed [facility] MRNA VACCINATION 00:00:00 [facility] PFIZER COVID-19 2020-07-23 Completed [facility] MRNA VACCINATION 00:00:00 [facility] PFIZER COVID-19 2020-07-23 Completed [facility] MRNA VACCINATION 00:00:00 [facility] PFIZER COVID-19 2020-07-23 Completed [facility] VACCINATION 00:00:00 [facility] PFIZER COVID-19 2020-07-23 Completed [facility] VACCINATION 00:00:00 [facility] PFIZER COVID-19 2020-07-23 Completed [facility] VACCINATION 00:00:00 [facility] PFIZER COVID-19 2020-07-23 Completed [facility] VACCINATION 00:00:00 [facility] PFIZER COVID-19 2020-07-23 Completed [facility] VACCINATION 00:00:00 [facility] PFIZER COVID-19 2020-07-23 Completed [facility] VACCINATION 00:00:00 [facility] PFIZER COVID-19 2020-07-23 Completed [facility] VACCINATION 00:00:00 [facility] SARS-COV-2 COVID-19 2020-07-02 Completed [facility] PFI[facility]ER VACCINE 00[facility]00:00 [facility] SARS-COV-2 COVID-19 2020-07-02 Completed [facility] PFIZER VACCINE 00:00:00 [facility] SARS-COV-2 COVID-19 2020-07-02 Completed [facility] PFIZER VACCINE 00:00:00 [facility] SARS-COV-2 COVID-19 2020-07-02 Completed [facility] PFIZER VACCINE 00:00:00 [facility] SARS-COV-2 COVID-19 2020-07-02 Completed [facility] PFIZER VACCINE 00:00:00 [facility] SARS-COV-2 COVID-19 2020-07-02 Completed [facility] PFIZER VACCINE 00:00:00 [facility] SARS-COV-2 COVID-19 2020-07-02 Completed [facility] PFIZER VACCINE 00:00:00 [facility] SARS-COV-2 COVID-19 2020-07-02 Completed [facility] PFIZER VACCINE 00:00:00 [facility] SARS-COV-2 COVID-19 2020-07-02 Completed [facility] PFIZER VACCINE 00:00:00 [facility] SARS-COV-2 COVID-19 2020-07-02 Completed [facility] PFIZER VACCINE 00:00:00 [facility] SARS-COV-2 COVID-19 2020-07-02 Completed [facility] PFIZER VACCINE 00:00:00 [facility] SARS-COV-2 COVID-19 2020-07-02 Completed [facility] PFIZER VACCINE 00:00:00 [facility] SARS-COV-2 COVID-19 2020-07-02 Completed [facility] PFIZER VACCINE 00:00:00 [facility] SARS-COV-2 COVID-19 2020-07-02 Completed [facility] PFIZER VACCINE 00:00:00 [facility] SARS-COV-2 COVID-19 2020-07-02 Completed [facility] PFIZER VACCINE 00[facility]00:00 [facility] Branch SARS-COV-2 COVID-19 2020-07-02 Completed [facility] PFIZER VACCINE 00:00:00 [facility] SARS-COV-2 COVID-19 2020-07-02 Completed [facility] of PFIZER VACCINE 00:00:00 [facility] SARS-COV-2 COVID-19 2020-07-02 Completed [facility] of PFIZER VACCINE 00:00:00 [facility] SARS-COV-2 COVID-19 2020-07-02 Completed [facility] of PFIZER VACCINE 00:00:00 [facility] SARS-COV-2 COVID-19 2020-07-02 Completed [facility] of PFIZER VACCINE 00:00:00 [facility] PFIZER COVID-19 2020-07-02 Completed [facility]00 [facility] PFIZER COVID-19 2020-07-02 Completed [facility] VACCINATION 00:00:00 [facility] PFIZER COVID-19 2020-07-02 Completed [facility] VACCINATION 00:00:00 [facility] PFIZER COVID-19 2020-07-02 Completed [facility] VACCINATION 00:00:00 [facility] PFIZER COVID-19 2020-07-02 Completed [facility] VACCINATION 00:00:00 [facility] PFIZER COVID-19 2020-07-02 Completed [facility] VACCINATION 00:00:00 [facility] PFIZER COVID-19 2020-07-02 Completed [facility] VACCINATION 00:00:00 [facility] PFIZER COVID-19 2020-07-02 Completed [facility] VACCINATION 00:00:00 [facility] PFIZER COVID-19 2020-07-02 Completed [facility] VACCINATION 00:00:00 [facility] PFIZER COVID-19 2020-07-02 Completed [facility] VACCINATION 00:00:00 [facility] PFIZER COVID-19 2020-07-02 Completed [facility] VACCINATION 00:00:00 [facility] PFIZER COVID-19 2020-07-02 Completed [facility] VACCINATION 00:00:00 [facility] PFIZER COVID-19 2020-07-02 Completed [facility] VACCINATION 00:00:00 [facility] PFIZER COVID-19 2020-07-02 Completed [facility] VACCINATION 00:00:00 [facility] PFIZER COVID-19 2020-07-02 Completed [facility] VACCINATION 00:00:00 [facility] PFIZER COVID-19 2020-07-02 Completed [facility] VACCINATION 00:00:00 [facility] PFIZER COVID-19 2020-07-02 Completed [facility] VACCINATION 00:00:00 [facility] PFIZER COVID-19 2020-07-02 Completed [facility] VACCINATION 00:00:00 [facility] PFIZER COVID-19 2020-07-02 Completed [facility] VACCINATION 00:00:00 [facility] PFIZER COVID-19 2020-07-02 Completed [facility] VACCINATION 00:00:00 [facility] PFIZER COVID-19 2020-07-02 Completed [facility] VACCINATION 00:00:00 [facility] PFIZER COVID-19 2020-07-02 Completed [facility] VACCINATION 00:00:00 [facility] PFIZER COVID-19 2020-07-02 Completed [facility] VACCINATION 00:00:00 [facility] PFIZER COVID-19 2020-07-02 Completed [facility] VACCINATION 00:00:00 [facility] PFIZER COVID-19 2020-07-02 Completed [facility] VACCINATION 00:00:00 [facility] PFIZER COVID-19 2020-07-02 Completed [facility] VACCINATION 00:00:00 [facility] PFIZER COVID-19 2020-07-02 Completed [facility] VACCINATION 00:00:00 [facility] PEG COVID-19 2020-07-02 Completed [facility] VACCINATION 00:00:00 [facility] PEG COVID-19 2020-07-02 Completed [facility] VACCINATION 00:00:00 [facility] PFIZER COVID-19 2020-07-02 Completed [facility] VACCINATION 00:00:00 [facility] PFIZER COVID-19 2020-07-02 Completed [facility] VACCINATION 00:00:00 [facility] PFIZER COVID-19 2020-07-02 Completed [facility] VACCINATION 00:00:00 [facility] PFIZER COVID-19 2020-07-02 Completed [facility] VACCINATION 00:00:00 [facility] PFIZER COVID-19 2020-07-02 Completed [facility] VACCINATION 00:00:00 [facility] PFIZER COVID-19 2020-07-02 Completed [facility] VACCINATION 00:00:00 [facility] PFIZER COVID-19 2020-07-02 Completed [facility] VACCINATION 00:00:00 [facility] PFIZER COVID-19 2020-07-02 Completed [facility] VACCINATION 00:00:00 [facility] PFIZER COVID-19 2020-07-02 Completed [facility] VACCINATION 00:00:00 [facility] PFIZER COVID-19 2020-07-02 Completed [facility] VACCINATION 00:00:00 [facility] PFIZER COVID-19 2020-07-02 Completed [facility] VACCINATION 00:00:00 [facility] PFIZER COVID-19 2020-07-02 Completed [facility] VACCINATION 00:00:00 [facility] PFIZER COVID-19 2020-07-02 Completed [facility] VACCINATION 00:00:00 [facility] PFIZER COVID-19 2020-07-02 Completed [facility] VACCINATION 00:00:00 [facility] PFIZER COVID-19 2020-07-02 Completed [facility] VACCINATION 00:00:00 [facility] PFIZER COVID-19 2020-07-02 Completed [facility] VACCINATION 00:00:00 [facility] PFIZER COVID-19 2020-07-02 Completed [facility] VACCINATION 00:00:00 [facility] PFIZER COVID-19 2020-07-02 Completed [facility] VACCINATION 00:00:00 [facility] PFIZER COVID-19 2020-07-02 Completed [facility] VACCINATION 00:00:00 [facility] PFIZER COVID-19 2020-07-02 Completed [facility] VACCINATION 00:00:00 [facility] PFIZER COVID-19 2020-07-02 Completed [facility] VACCINATION 00:00:00 [facility] PFIZER COVID-19 2020-07-02 Completed [facility] VACCINATION 00:00:00 [facility] PFIZER COVID-19 2020-07-02 Completed [facility] VACCINATION 00:00:00 [facility] PFIZER COVID-19 2020-07-02 Completed [facility] VACCINATION 00:00:00 [facility] PFIZER COVID-19 2020-07-02 Completed [facility] VACCINATION 00:00:00 [facility] PFIZER COVID-19 2020-07-02 Completed [facility] VACCINATION 00:00:00 [facility] PFIZER COVID-19 2020-07-02 Completed [facility] VACCINATION 00:00:00 [facility] PFIZER COVID-19 2020-07-02 Completed [facility] VACCINATION 00:00:00 [facility] PFIZER COVID-19 2020-07-02 Completed [facility] VACCINATION 00:00:00 [facility] PFIZER COVID-19 2020-07-02 Completed [facility] VACCINATION 00:00:00 [facility] PFIZER COVID-19 2020-07-02 Completed [facility] VACCINATION 00:00:00 [facility] PFIZER COVID-19 2020-07-02 Completed [facility] VACCINATION 00:00:00 [facility] PFIZER COVID-19 2020-07-02 Completed [facility] VACCINATION 00:00:00 [facility] PFIZER COVID-19 2020-07-02 Completed [facility] VACCINATION 00:00:00 [facility] PFIZER COVID-19 2020-07-02 Completed [facility] VACCINATION 00:00:00 [facility] PFIZER COVID-19 2020-07-02 Completed [facility] VACCINATION 00:00:00 [facility] PFIZER COVID-19 2020-07-02 Completed [facility] VACCINATION 00:00:00 [facility] PFIZER COVID-19 2020-07-02 Completed [facility] VACCINATION 00:00:00 [facility] Influenza Virus 2017-03-08 Completed Univers[facility] Vaccine 00:00:00 [facility] Influenza Virus 2017-03-08 Completed [facility] y of Vaccine 00:00:00 [facility] Influenza Virus 2017-03-08 Completed [facility] of Vaccine 00:00:00 [facility] Influenza Virus 2017-03-08 Completed [facility] of Vaccine 00:00:00 [facility] Influenza Virus 2017-03-08 Completed [facility] of Vaccine 00:00:00 [facility] Influenza Virus 2017-03-08 Completed [facility] of Vaccine 00:00:00 [facility] Influenza Virus 2017-03-08 Completed [facility] of Vaccine 00:00:00 [facility] Influenza Virus 2017-03-08 Completed [facility] of Vaccine 00:00:00 [facility] Influenza Virus 2017-03-08 Completed [facility] of Vaccine 00:00:00 [facility] Influenza Virus 2017-03-08 Completed [facility] of Vaccine 00:00:00 [facility] Influenza Virus 2017-03-08 Completed [facility] of Vaccine 00:00:00 [facility] Influenza Virus 2017-03-08 Completed [facility] of Vaccine 00:00:00 [facility] Influenza Virus 2017-03-08 Completed [facility] of Vaccine 00:00:00 [facility] Influenza Virus 2017-03-08 Completed [facility] of Vaccine 00:00:00 [facility] Influenza Virus 2017-03-08 Completed [facility] of Vaccine 00:00:00 [facility] Influenza Virus 2017-03-08 Completed [facility] of Vaccine 00:00:00 [facility] Influenza Virus 2017-03-08 Completed [facility] of Vaccine 00:00:00 [facility] Influenza Virus 2017-03-08 Completed [facility] of Vaccine 00:00:00 [facility] Influenza Virus 2017-03-08 Completed [facility] of Vaccine 00:00:00 [facility] Influenza Virus 2017-03-08 Completed [facility] of Vaccine 00:00:00 [facility] Influenza Virus 2017-03-08 Completed [facility] of Vaccine 00:00:00 [facility] Influenza Virus 2017-03-08 Completed [facility] of Vaccine 00:00:00 [facility] Influenza Virus 2017-03-08 Completed [facility] of Vaccine 00:00:00 [facility] Influenza Virus 2017-03-08 Completed [facility] of Vaccine 00:00:00 [facility] Influenza Virus 2014-01-30 Completed [facility] Vaccine (3+ yrs) 00[facility] 2014-01-30 Completed [facility] of Conjugate, PCV13 00:00:00 [facility] dical (Prevnar 13) Branch Influenza Virus 2014-01-30 Completed [facility] of Vaccine (3+ yrs) 00:00:00 [facility] Pneum[facility] 13 2014-01-30 Completed [facility] of Conjugate, PCV13 00:00:00 [facility] dical (Prevnar 13) Branch Influenza Virus 2014-01-30 Completed [facility] of Vaccine (3+ yrs) 00:00:00 [facility] Pneumococcal 13 2014-01-30 Completed [facility] y of Conjugate, PCV13 00:00:00 [facility] dical (Prevnar 13) Branch Influenza Virus 2014-01-30 Completed [facility] y of Vaccine (3+ yrs) 00:00:00 [facility] dical Branch Pneumococcal 13 2014-01-30 Completed [facility]it y of Conjugate, PCV13 00:00:00 [facility] dical (Prevnar 13) Branch Influenza Virus 2014-01-30 Completed [facility] of Vaccine (3+ yrs) 00:00:00 [facility] Pneumococcal 13 2014-01-30 Completed [facility] of Conjugate, PCV13 00:00:00 [facility] dical (Prevnar 13) Branch Influenza Virus 2014-01-30 Completed [facility] y of Vaccine (3+ yrs) 00:00:00 [facility] dical Branch Pneumococcal 13 2014-01-30 Completed [facility]it y of Conjugate, PCV13 00:00:00 [facility] dical (Prevnar 13) Branch Influenza Virus 2014-01-30 Completed [facility] of Vaccine (3+ yrs) 00:00:00 [facility] Pneumococcal 13 2014-01-30 Completed [facility] of Conjugate, PCV13 00:00:00 [facility] dical (Prevnar 13) Branch Influenza Virus 2014-01-30 Completed [facility] y of Vaccine (3+ yrs) 00:00:00 [place] [facility] Pneumococcal 13 2014-01-30 Completed [facility] y of Conjugate, PCV13 00:00:00 [facility] (Prevnar 13) Branch Influenza Virus 2014-01-30 Completed [facility] of Vaccine (3+ yrs) 00:00:00 [facility] Pneumococcal 13 2014-01-30 Completed [facility] of Conjugate, PCV13 00:00:00 [place] [facility] (Prevnar 13) Branch Influenza Virus 2014-01-30 Completed [facility] of Vaccine (3+ yrs) 00:00:00 [facility] Pneumococcal 13 2014-01-30 Completed [facility] of Conjugate, PCV13 00:00:00 [place] [facility] (Prevnar 13) Branch Influenza Virus 2014-01-30 Completed [facility] of Vaccine (3+ yrs) 00:00:00 [facility] Pneumococcal 13 2014-01-30 Completed [facility] of Conjugate, PCV13 00:00:00 [facility] dical (Prevnar 13) Branch Influenza Virus 2014-01-30 Completed [facility] y of Vaccine (3+ yrs) 00:00:00 [facility]ical Branch Pneumococcal 13 2014-01-30 Completed [facility] y of Conjugate, PCV13 00:00:00 [facility] dical (Prevnar 13) Branch Influenza Virus 2014-01-30 Completed [facility] y of Vaccine (3+ yrs) 00:00:00 [facility] Branch Pneumococcal 13 2014-01-30 Completed [facility] y of Conjugate, PCV13 00:00:00 [facility] dical (Prevnar 13) Branch Influenza Virus 2014-01-30 Completed [facility] y of Vaccine (3+ yrs) 00:00:00 [facility] Branch Pneumococcal 13 2014-01-30 Completed [facility] y of Conjugate, PCV13 00:00:00 [facility] dical (Prevnar 13) Branch Influenza Virus 2014-01-30 Completed [facility] of Vaccine (3+ yrs) 00:00:00 [place] [facility] Pneumococcal 13 2014-01-30 Completed [facility] of Conjugate, PCV13 00:00:00 [facility] dical (Prevnar 13) Branch Influenza Virus 2014-01-30 Completed [facility] of Vaccine (3+ yrs) 00:00:00 [facility] Branch Pneumococcal 13 2014-01-30 Completed [facility] y of Conjugate, PCV13 00:00:00 [facility] dical (Prevnar 13) Branch Influenza Virus 2014-01-30 Completed [facility] of Vaccine (3+ yrs) 00:00:00 [facility] Branch Pneumococcal 13 2014-01-30 Completed [facility] y of Conjugate, PCV13 00:00:00 [facility] dical (Prevnar 13) Branch Influenza Virus 2014-01-30 Completed [facility] y of Vaccine (3+ yrs) 00:00:00 [facility] Branch Pneumococcal 13 2014-01-30 Completed [facility] y of Conjugate, PCV13 00:00:00 [facility] dical (Prevnar 13) Branch Influenza Virus 2014-01-30 Completed [facility] y of Vaccine (3+ yrs) 00:00:00 [facility] Branch Pneumococcal 13 2014-01-30 Completed [facility] y of Conjugate, PCV13 00:00:00 [facility] dical (Prevnar 13) Branch Influenza Virus 2014-01-30 Completed [facility] of Vaccine (3+ yrs) 00:00:00 [facility] Branch Pneumococcal 13 2014-01-30 Completed [facility] y of Conjugate, PCV13 00:00:00 [facility] dical (Prevnar 13) Branch Influenza Virus 2014-01-30 Completed [facility] y of Vaccine (3+ yrs) 00:00:00 [facility] Branch Pneumococcal 13 2014-01-30 Completed [facility] y of Conjugate, PCV13 00:00:00 [facility] dical (Prevnar 13) Branch Influenza Virus 2014-01-30 Completed [facility] y of Vaccine (3+ yrs) 00:00:00 [facility] Branch Pneumococcal 13 2014-01-30 Completed [facility] y of Conjugate, PCV13 00:00:00 [facility] dical (Prevnar 13) Branch Influenza Virus 2014-01-30 Completed [facility] y of Vaccine (3+ yrs) 00:00:00 [facility] Branch Pneumococcal 13 2014-01-30 Completed [facility] y of Conjugate, PCV13 00:00:00 [facility] dical (Prevnar 13) Branch Influenza Virus 2014-01-30 Completed [facility] y of Vaccine (3+ yrs) 00:00:00 [facility] Branch Pneumococcal 13 2014-01-30 Completed [facility] y of Conjugate, PCV13 00:00:00 [facility] dical (Prevnar 13) Branch Pneumococcal 2012-02-16 Completed [facility] o f Polysaccharide, 00:00:00 [place] [facility] PPSV23 (PNEUMOVAX) Branch Influenza Virus 2012-02-16 Completed [facility] of Vaccine 00:00:00 [facility] PPD (TB) 2012-02-16 Completed University of 00:00:00 [facility] Pneumococcal 2012-02-16 Completed University o f Polysaccharide, 00:00:00 [place] [facility] PPSV23 (PNEUMOVAX) Branch Influenza Virus 2012-02-16 Completed [facility] of Vaccine 00:00:00 [facility] PPD (TB) 2012-02-16 Completed [facility] of 00:00:00 [facility] Pneumococcal 2012-02-16 Completed [facility] o f Polysaccharide, 00:00:00 [place] [facility] PPSV23 (PNEUMOVAX) Branch Influenza Virus 2012-02-16 Completed [facility] of Vaccine 00:00:00 [facility] PPD (TB) 2012-02-16 Completed [facility] of 00:00:00 [facility] Pneumococcal 2012-02-16 Completed University o f Polysaccharide, 00:00:00 [place] [facility] PPSV23 (PNEUMOVAX) Branch Influenza Virus 2012-02-16 Completed [facility] of Vaccine 00:00:00 [facility] PPD (TB) 2012-02-16 Completed [facility] of 00:00:00 [facility] Pneumococcal 2012-02-16 Completed [facility] o f Polysaccharide, 00:00:00 [place] [facility] PPSV23 (PNEUMOVAX) Branch Influenza Virus 2012-02-16 Completed [facility] of Vaccine 00:00:00 [facility] PPD (TB) 2012-02-16 Completed [facility] of 00:00:00 [facility] Pneumococcal 2012-02-16 Completed [facility] o f Polysaccharide, 00:00:00 [place] [facility] PPSV23 (PNEUMOVAX) Branch Influenza Virus 2012-02-16 Completed [facility] of Vaccine 00:00:00 [facility] PPD (TB) 2012-02-16 Completed [facility] of 00:00:00 [facility] Pneumococcal 2012-02-16 Completed [facility] o f Polysaccharide, 00:00:00 [place] [facility] PPSV23 (PNEUMOVAX) Branch Influenza Virus 2012-02-16 Completed [facility] of Vaccine 00:00:00 [facility] PPD (TB) 2012-02-16 Completed [facility] of 00:00:00 [facility] Pneumococcal 2012-02-16 Completed [facility] o f Polysaccharide, 00:00:00 [place] [facility] PPSV23 (PNEUMOVAX) Branch Influenza Virus 2012-02-16 Completed [facility] of Vaccine 00:00:00 [facility] PPD (TB) 2012-02-16 Completed [facility] of 00:00:00 [facility] Pneumococcal 2012-02-16 Completed [facility] o f Polysaccharide, 00:00:00 [place] [facility] PPSV23 (PNEUMOVAX) Branch Influenza Virus 2012-02-16 Completed [facility] of Vaccine 00:00:00 [facility] PPD (TB) 2012-02-16 Completed [facility] of 00:00:00 [facility] Pneumococcal 2012-02-16 Completed [facility] o f Polysaccharide, 00:00:00 [place] [facility] PPSV23 (PNEUMOVAX) Branch Influenza Virus 2012-02-16 Completed [facility] of Vaccine 00:00:00 [facility] PPD (TB) 2012-02-16 Completed [facility] of 00:00:00 [facility] Pneumococcal 2012-02-16 Completed [facility] o f Polysaccharide, 00:00:00 [place] [facility] PPSV23 (PNEUMOVAX) Branch Influenza Virus 2012-02-16 Completed [facility] of Vaccine 00:00:00 [facility] PPD (TB) 2012-02-16 Completed [facility] of 00:00:00 [facility] Pneumococcal 2012-02-16 Completed [facility] o f Polysaccharide, 00:00:00 [place] [facility] PPSV23 (PNEUMOVAX) Branch Influenza Virus 2012-02-16 Completed [facility] of Vaccine 00:00:00 [facility] PPD (TB) 2012-02-16 Completed [facility] of 00:00:00 [facility] Pneumococcal 2012-02-16 Completed [facility] o f Polysaccharide, 00:00:00 [place] [facility] PPSV23 (PNEUMOVAX) Branch Influenza Virus 2012-02-16 Completed [facility] of Vaccine 00:00:00 [facility] PPD (TB) 2012-02-16 Completed [facility] of 00:00:00 [facility] Pneumococcal 2012-02-16 Completed [facility] o f Polysaccharide, 00:00:00 [place] [facility] PPSV23 (PNEUMOVAX) Branch Influenza Virus 2012-02-16 Completed [facility] of Vaccine 00:00:00 [facility] PPD (TB) 2012-02-16 Completed [facility] of 00:00:00 [facility] Pneumococcal 2012-02-16 Completed [facility] o f Polysaccharide, 00:00:00 [place] [facility] PPSV23 (PNEUMOVAX) Branch Influenza Virus 2012-02-16 Completed [facility] of Vaccine 00:00:00 [facility] PPD (TB) 2012-02-16 Completed [facility] of 00:00:00 [facility] Pneumococcal 2012-02-16 Completed [facility] o f Polysaccharide, 00:00:00 [place] [facility] PPSV23 (PNEUMOVAX) Branch Influenza Virus 2012-02-16 Completed [facility] of Vaccine 00:00:00 [facility] PPD (TB) 2012-02-16 Completed [facility] of 00:00:00 [facility] Pneumococcal 2012-02-16 Completed [facility] o f Polysaccharide, 00:00:00 [place] [facility] PPSV23 (PNEUMOVAX) Branch Influenza Virus 2012-02-16 Completed [facility] of Vaccine 00:00:00 [facility] PPD (TB) 2012-02-16 Completed [facility] of 00:00:00 [facility] Pneumococcal 2012-02-16 Completed [facility] o f Polysaccharide, 00:00:00 [place] [facility] PPSV23 (PNEUMOVAX) Branch Influenza Virus 2012-02-16 Completed [facility] of Vaccine 00:00:00 [facility] PPD (TB) 2012-02-16 Completed [facility] of 00:00:00 [facility] Pneumococcal 2012-02-16 Completed [facility] o f Polysaccharide, 00:00:00 [place] [facility] PPSV23 (PNEUMOVAX) Branch Influenza Virus 2012-02-16 Completed [facility] of Vaccine 00:00:00 [facility] PPD (TB) 2012-02-16 Completed [facility] of 00:00:00 [facility] Pneumococcal 2012-02-16 Completed [facility] o f Polysaccharide, 00:00:00 [place] [facility] PPSV23 (PNEUMOVAX) Branch Influenza Virus 2012-02-16 Completed [facility] of Vaccine 00:00:00 [facility] PPD (TB) 2012-02-16 Completed [facility] of 00:00:00 [facility] Pneumococcal 2012-02-16 Completed [facility] o f Polysaccharide, 00:00:00 [place] [facility] PPSV23 (PNEUMOVAX) Branch Influenza Virus 2012-02-16 Completed [facility] of Vaccine 00:00:00 [facility] PPD (TB) 2012-02-16 Completed [facility] of 00:00:00 [facility] Pneumococcal 2012-02-16 Completed [facility] o f Polysaccharide, 00:00:00 [place] [facility] PPSV23 (PNEUMOVAX) Branch Influenza Virus 2012-02-16 Completed [facility] of Vaccine 00:00:00 [facility] PPD (TB) 2012-02-16 Completed [facility] of 00:00:00 [facility] Pneumococcal 2012-02-16 Completed [facility] o f Polysaccharide, 00:00:00 [place] [facility] PPSV23 (PNEUMOVAX) Branch Influenza Virus 2012-02-16 Completed [facility] of Vaccine 00:00:00 [facility] PPD (TB) 2012-02-16 Completed [facility] of 00:00:00 [facility] Pneumococcal 2012-02-16 Completed [facility] o f Polysaccharide, 00:00:00 [place] [facility] PPSV23 (PNEUMOVAX) Branch Influenza Virus 2012-02-16 Completed [facility] of Vaccine 00:00:00 [facility] PPD (TB) 2012-02-16 Completed [facility] of 00:00:00 [facility] Hep B, Adol or Pedi 2011-09-01 Completed Unive rsity of Dosage 00:00:00 [facility] Hep B, Adol or Pedi 2011-09-01 Completed Unive rsity of Dosage 00:00:00 [facility] Hep B, Adol or Pedi 2011-09-01 Completed Unive rsity of Dosage 00:00:00 [facility] Hep B, Adol or Pedi 2011-09-01 Completed Unive rsity of Dosage 00:00:00 [facility] Hep B, Adol or Pedi 2011-09-01 Completed [facility]ive [facility] of Dosage 00:00:00 [facility] Hep B, Adol or Pedi 2011-09-01 Completed [facility] of Dosage 00:00:00 [facility] Hep B, Adol or Pedi 2011-09-01 Completed [facility]ive rs[facility] of Dosage 00:00:00 [facility] Hep B, Adol or Pedi 2011-09-01 Completed [facility]ive rsity of Dosage 00:00:00 [facility] Hep B, Adol or Pedi 2011-09-01 Completed [facility]ive rsity of Dosage 00:00:00 [facility] Hep B, Adol or Pedi 2011-09-01 Completed [facility]ive rs[facility] of Dosage 00:00:00 [facility] Hep B, Adol or Pedi 2011-09-01 Completed [facility] rs[facility] of Dosage 00:00:00 [facility] Hep B, Adol or Pedi 2011-09-01 [...] Completed [facility]ive [facility] of Dosage 00:00:00 [facility] Influenza Virus 2011-02-10 Completed Universit y of Vaccine 00:00:00 [facility] Hep B, Adol or Pedi 2011-02-10 Completed [facility]ive rsity of Dosage 00:00:00 [facility] Influenza Virus 2011-02-10 Completed [facility]it y of Vaccine 00:00:00 [facility] Hep B, Adol or Pedi 2011-02-10 Completed [facility]ive rsity of Dosage 00:00:00 [facility] Influenza Virus 2011-02-10 Completed [facility]it y of Vaccine 00:00:00 [facility] Hep B, Adol or Pedi 2011-02-10 Completed [facility]ive rsity of Dosage 00:00:00 [facility] Influenza Virus 2011-02-10 Completed [facility]it y of Vaccine 00:00:00 [facility] Hep B, Adol or Pedi 2011-02-10 Completed [facility]ive rsity of Dosage 00:00:00 [facility] Influenza Virus 2011-02-10 Completed [facility]it y of Vaccine 00:00:00 [facility] Hep B, Adol or Pedi 2011-02-10 Completed [facility]ive rsity of Dosage 00:00:00 [facility] Influenza Virus 2011-02-10 Completed [facility]it y of Vaccine 00:00:00 [facility] Hep B, Adol or Pedi 2011-02-10 Completed [facility]ive rsity of Dosage 00:00:00 [facility] Influenza Virus 2011-02-10 Completed [facility]it y of Vaccine 00:00:00 [facility] Hep B, Adol or Pedi 2011-02-10 Completed [facility]ive rsity of Dosage 00:00:00 [facility] Influenza Virus 2011-02-10 Completed [facility] of Vaccine 00:00:00 [facility] Hep B, Adol or Pedi 2011-02-10 Completed [facility]ive rsity of Dosage 00:00:00 [facility] Influenza Virus 2011-02-10 Completed [facility] of Vaccine 00:00:00 [facility] Hep B, Adol or Pedi 2011-02-10 Completed [facility]ive rsity of Dosage 00:00:00 [facility] Influenza Virus 2011-02-10 Completed [facility] y of Vaccine 00:00:00 [facility] Hep B, Adol or Pedi 2011-02-10 Completed [facility]ive rsity of Dosage 00:00:00 [facility] Influenza Virus 2011-02-10 Completed [facility] of Vaccine 00:00:00 [facility] Hep B, Adol or Pedi 2011-02-10 Completed [facility] of Dosage 00:00:00 [facility] Influenza Virus 2011-02-10 Completed [facility] of Vaccine 00:00:00 [facility] Hep B, Adol or Pedi 2011-02-10 Completed [facility] rs[facility] of Dosage 00:00:00 [facility] Influenza Virus 2011-02-10 Completed [facility] of Vaccine 00:00:00 [facility] Hep B, Adol or Pedi 2011-02-10 Completed [facility] of Dosage 00:00:00 [facility] Influenza Virus 2011-02-10 Completed [facility] of Vaccine 00:00:00 [facility] Hep B, Adol or Pedi 2011-02-10 Completed [facility] of Dosage 00:00:00 [facility] Influenza Virus 2011-02-10 Completed [facility] of Vaccine 00:00:00 [facility] Hep B, Adol or Pedi 2011-02-10 Completed [facility] of Dosage 00:00:00 [facility] Influenza Virus 2011-02-10 Completed [facility] of Vaccine 00:00:00 [facility] Hep B, Adol or Pedi 2011-02-10 Completed [facility] rs[facility] of Dosage 00:00:00 [facility] Influenza Virus 2011-02-10 Completed [facility] y of Vaccine 00:00:00 [facility] Hep B, Adol or Pedi 2011-02-10 Completed [facility] rs[facility] of Dosage 00:00:00 [facility] Influenza Virus 2011-02-10 Completed [facility] y of Vaccine 00:00:00 [facility] Hep B, Adol or Pedi 2011-02-10 Completed [facility]ive rs[facility] of Dosage 00:00:00 [facility] Influenza Virus 2011-02-10 Completed [facility] y of Vaccine 00:00:00 [facility] Hep B, Adol or Pedi 2011-02-10 Completed [facility] rs[facility] of Dosage 00:00:00 [facility] Influenza Virus 2011-02-10 Completed [facility] y of Vaccine 00:00:00 [facility] Hep B, Adol or Pedi 2011-02-10 Completed [facility]ive rsity of Dosage 00:00:00 [facility] Influenza Virus 2011-02-10 Completed [facility] y of Vaccine 00:00:00 [facility] Hep B, Adol or Pedi 2011-02-10 Completed [facility]ive rsity of Dosage 00:00:00 [facility] Influenza Virus 2011-02-10 Completed [facility]it y of Vaccine 00:00:00 [facility] Hep B, Adol or Pedi 2011-02-10 Completed [facility]ity of Dosage 00:00:00 [facility] Influenza Virus 2011-02-10 Completed [facility] of Vaccine 00:00:00 [facility] Hep B, Adol or Pedi 2011-02-10 Completed [facility]ive rsity of Dosage 00:00:00 [facility] Influenza Virus 2011-02-10 Completed [facility] y of Vaccine 00:00:00 [facility] Hep B, Adol or Pedi 2011-02-10 Completed [facility]ive rsity of Dosage 00:00:00 [facility] PPD (TB) 2010-11-18 Completed University of 00:00:00 [facility] TDAP (ADACEL) 2010-11-18 Completed University of VACCINE 00:00:00 [facility] PPD (TB) 2010-11-18 Completed University of 00:00:00 [facility] TDAP (ADACEL) 2010-11-18 Completed University of VACCINE 00:00:00 [facility] PPD (TB) 2010-11-18 Completed University of 00:00:00 [facility] TDAP (ADACEL) 2010-11-18 Completed University of VACCINE 00:00:00 [facility] PPD (TB) 2010-11-18 Completed University of 00:00:00 [facility] TDAP (ADACEL) 2010-11-18 Completed University of VACCINE 00:00:00 [facility] PPD (TB) 2010-11-18 Completed University of 00:00:00 [facility] TDAP (ADACEL) 2010-11-18 Completed University of VACCINE 00:00:00 [facility] PPD (TB) 2010-11-18 Completed University of 00:00:00 [facility] TDAP (ADACEL) 2010-11-18 Completed University of VACCINE 00:00:00 [facility] PPD (TB) 2010-11-18 Completed University of 00:00:00 [facility] TDAP (ADACEL) 2010-11-18 Completed University of VACCINE 00:00:00 [facility] PPD (TB) 2010-11-18 Completed University of 00:00:00 [facility] TDAP (ADACEL) 2010-11-18 Completed University of VACCINE 00:00:00 [facility] PPD (TB) 2010-11-18 Completed University of 00:00:00 [facility] TDAP (ADACEL) 2010-11-18 Completed University of VACCINE 00:00:00 [facility] PPD (TB) 2010-11-18 Completed University of 00:00:00 [facility] TDAP (ADACEL) 2010-11-18 Completed University of VACCINE 00:00:00 [facility] PPD (TB) 2010-11-18 Completed University of 00:00:00 [facility] TDAP (ADACEL) 2010-11-18 Completed University of VACCINE 00:00:00 [facility] PPD (TB) 2010-11-18 Completed University of 00:00:00 [facility] TDAP (ADACEL) 2010-11-18 Completed University of VACCINE 00:00:00 [facility] PPD (TB) 2010-11-18 Completed University of 00:00:00 [facility] TDAP (ADACEL) 2010-11-18 Completed University of VACCINE 00:00:00 [facility] PPD (TB) 2010-11-18 Completed University of 00:00:00 [facility] TDAP (ADACEL) 2010-11-18 Completed University of VACCINE 00:00:00 [facility] PPD (TB) 2010-11-18 Completed University of 00:00:00 [facility] TDAP (ADACEL) 2010-11-18 Completed University of VACCINE 00:00:00 [facility] PPD (TB) 2010-11-18 Completed University of 00:00:00 [facility] TDAP (ADACEL) 2010-11-18 Completed University of VACCINE 00:00:00 [facility] PPD (TB) 2010-11-18 Completed University of 00:00:00 [facility] TDAP (ADACEL) 2010-11-18 Completed University of VACCINE 00:00:00 [facility] PPD (TB) 2010-11-18 Completed University of 00:00:00 [facility] TDAP (ADACEL) 2010-11-18 Completed University of VACCINE 00:00:00 [facility] PPD (TB) 2010-11-18 Completed [facility] of 00:00:00 [facility] TDAP (ADACEL) 2010-11-18 Completed University of VACCINE 00:00:00 [facility] PPD (TB) 2010-11-18 Completed University of 00:00:00 [facility] TDAP (ADACEL) 2010-11-18 Completed University of VACCINE 00:00:00 [facility] PPD (TB) 2010-11-18 Completed University of 00:00:00 [facility] TDAP (ADACEL) 2010-11-18 Completed University of VACCINE 00:00:00 [facility] PPD (TB) 2010-11-18 Completed University of 00:00:00 [facility] TDAP (ADACEL) 2010-11-18 Completed University of VACCINE 00:00:00 [facility] PPD (TB) 2010-11-18 Completed University of 00:00:00 [facility] TDAP (ADACEL) 2010-11-18 Completed University of VACCINE 00:00:00 [facility] PPD (TB) 2010-11-18 Completed University of 00:00:00 [facility] TDAP (ADACEL) 2010-11-18 Completed University of VACCINE 00:00:00 [facility] HEPATITIS A 2004-03-02 Completed University of 00:00:00 [facility] HEPATITIS A 2004-03-02 Completed University of 00:00:00 [facility] HEPATITIS A 2004-03-02 Completed [facility] of 00:00:00 [facility] HEPATITIS A 2004-03-02 Completed University of 00:00:00 [facility] HEPATITIS A 2004-03-02 Completed University of 00:00:00 [facility] HEPATITIS A 2004-03-02 Completed [facility] of 00:00:00 [facility] HEPATITIS A 2004-03-02 Completed University of 00:00:00 [facility] HEPATITIS A 2004-03-02 Completed University of 00:00:00 [facility] HEPATITIS A 2004-03-02 Completed University of 00:00:00 [facility] HEPATITIS A 2004-03-02 Completed University of 00:00:00 [facility] HEPATITIS A 2004-03-02 Completed University of 00:00:00 [facility] HEPATITIS A 2004-03-02 Completed University of 00:00:00 [facility] HEPATITIS A 2004-03-02 Completed University of 00:00:00 [facility] HEPATITIS A 2004-03-02 Completed University of 00:00:00 [facility] HEPATITIS A 2004-03-02 Completed [facility] of 00:00:00 [facility] HEPATITIS A 2004-03-02 Completed University of 00:00:00 [facility] HEPATITIS A 2004-03-02 Completed University of 00:00:00 [facility] HEPATITIS A 2004-03-02 Completed [facility] of 00:00:00 [facility] HEPATITIS A 2004-03-02 Completed [facility] of 00:00:00 [facility] HEPATITIS A 2004-03-02 Completed University of 00:00:00 [facility] HEPATITIS A 2004-03-02 Completed [facility] of 00:00:00 [facility] HEPATITIS A 2004-03-02 Completed [facility] of 00:00:00 [facility] HEPATITIS A 2004-03-02 Completed [facility] of 00:00:00 [facility] HEPATITIS A 2004-03-02 Completed University of 00:00:00 [facility] HEPATITIS A 2003-08-01 Completed [facility] of 00:00:00 [facility] HEPATITIS A 2003-08-01 Completed [facility] of 00:00:00 [facility] HEPATITIS A 2003-08-01 Completed University of 00:00:00 [facility] HEPATITIS A 2003-08-01 Completed [facility] of 00:00:00 [facility] HEPATITIS A 2003-08-01 Completed University of 00:00:00 [facility] HEPATITIS A 2003-08-01 Completed University of 00:00:00 [facility] HEPATITIS A 2003-08-01 Completed [facility] of 00:00:00 [facility] HEPATITIS A 2003-08-01 Completed [facility] of 00:00:00 [facility] HEPATITIS A 2003-08-01 Completed University of 00:00:00 [facility] HEPATITIS A 2003-08-01 Completed University of [...] University of 00:00:00 [facility] HEPATITIS A 2003-08-01 Completed University of 00:00:00 [facility] HEPATITIS A 2003-08-01 Completed [facility] of 00:00:00 [facility] HEPATITIS A 2003-08-01 Completed [facility] of 00:00:00 [facility] HEPATITIS A 2003-08-01 Completed [facility] of 00:00:00 [facility] HEPATITIS A 2003-08-01 Completed [facility] of 00:00:00 [facility] Pneumococcal 2001-10-04 Completed University o f Polysaccharide, 00:00:00 [place] [facility] PPSV23 (PNEUMOVAX) [facility] PPD (TB) 2001-10-04 Completed [facility] of 00:00:00 [facility] Pneumococcal 2001-10-04 Completed University o f Polysaccharide, 00:00:00 [place] [facility] PPSV23 (PNEUMOVAX) Branch PPD (TB) 2001-10-04 Completed [facility] of 00:00:00 [facility] Pneumococcal 2001-10-04 Completed University o f Polysaccharide, 00:00:00 [place] [facility] PPSV23 (PNEUMOVAX) Branch PPD (TB) 2001-10-04 Completed [facility] of 00:00:00 [facility] Pneumococcal 2001-10-04 Completed University o f Polysaccharide, 00:00:00 [place] [facility] PPSV23 (PNEUMOVAX) Branch PPD (TB) 2001-10-04 Completed [facility] of 00:00:00 [facility] Pneumococcal 2001-10-04 Completed University o f Polysaccharide, 00:00:00 [place] [facility] PPSV23 (PNEUMOVAX) Branch PPD (TB) 2001-10-04 Completed [facility] of 00:00:00 [facility] Pneumococcal 2001-10-04 Completed University o f Polysaccharide, 00:00:00 [place] [facility] PPSV23 (PNEUMOVAX) Branch PPD (TB) 2001-10-04 Completed [facility] of 00:00:00 [facility] Pneumococcal 2001-10-04 Completed University o f Polysaccharide, 00:00:00 [place] [facility] PPSV23 (PNEUMOVAX) Branch PPD (TB) 2001-10-04 Completed [facility] of 00:00:00 [facility] Pneumococcal 2001-10-04 Completed University o f Polysaccharide, 00:00:00 [place] [facility] PPSV23 (PNEUMOVAX) Branch PPD (TB) 2001-10-04 Completed [facility] of 00:00:00 [facility] Pneumococcal 2001-10-04 Completed University o f Polysaccharide, 00:00:00 [place] [facility] PPSV23 (PNEUMOVAX) Branch PPD (TB) 2001-10-04 Completed [facility] of 00:00:00 [facility] Pneumococcal 2001-10-04 Completed University o f Polysaccharide, 00:00:00 [place] [facility] PPSV23 (PNEUMOVAX) Branch PPD (TB) 2001-10-04 Completed [facility] of 00:00:00 [facility] Pneumococcal 2001-10-04 Completed University o f Polysaccharide, 00:00:00 [place] [facility] PPSV23 (PNEUMOVAX) Branch PPD (TB) 2001-10-04 Completed [facility] of 00:00:00 [facility] Pneumococcal 2001-10-04 Completed University o f Polysaccharide, 00:00:00 [place] [facility] PPSV23 (PNEUMOVAX) [facility] PPD (TB) 2001-10-04 Completed [facility] of 00:00:00 [facility] Pneumococcal 2001-10-04 Completed University o f Polysaccharide, 00:00:00 [place] [facility] PPSV23 (PNEUMOVAX) Branch PPD (TB) 2001-10-04 Completed [facility] of 00:00:00 [facility] Pneumococcal 2001-10-04 Completed University o f Polysaccharide, 00:00:00 [place] [facility] PPSV23 (PNEUMOVAX) Branch PPD (TB) 2001-10-04 Completed [facility] of 00:00:00 [facility] Pneumococcal 2001-10-04 Completed University o f Polysaccharide, 00:00:00 [place] [facility] PPSV23 (PNEUMOVAX) Branch PPD (TB) 2001-10-04 Completed [facility] of 00:00:00 [facility] Pneumococcal 2001-10-04 Completed University o f Polysaccharide, 00:00:00 [place] [facility] PPSV23 (PNEUMOVAX) Branch PPD (TB) 2001-10-04 Completed [facility] of 00:00:00 [facility] Pneumococcal 2001-10-04 Completed University o f Polysaccharide, 00:00:00 [place] [facility] PPSV23 (PNEUMOVAX) Branch PPD (TB) 2001-10-04 Completed [facility] of 00:00:00 [facility] Pneumococcal 2001-10-04 Completed University o f Polysaccharide, 00:00:00 [place] [facility] PPSV23 (PNEUMOVAX) Branch PPD (TB) 2001-10-04 Completed [facility] of 00:00:00 [facility] Pneumococcal 2001-10-04 Completed University o f Polysaccharide, 00:00:00 [place] [facility] PPSV23 (PNEUMOVAX) Branch PPD (TB) 2001-10-04 Completed [facility] of 00:00:00 [facility] Pneumococcal 2001-10-04 Completed University o f Polysaccharide, 00:00:00 [place] [facility] PPSV23 (PNEUMOVAX) Branch PPD (TB) 2001-10-04 Completed [facility] of 00:00:00 [facility] Pneumococcal 2001-10-04 Completed University o f Polysaccharide, 00:00:00 [place] [facility] PPSV23 (PNEUMOVAX) Branch PPD (TB) 2001-10-04 Completed [facility] of 00:00:00 [facility] Pneumococcal 2001-10-04 Completed University o f Polysaccharide, 00:00:00 [place] [facility] PPSV23 (PNEUMOVAX) [facility] PPD (TB) 2001-10-04 Completed [facility] of 00:00:00 [facility] Pneumococcal 2001-10-04 Completed University o f Polysaccharide, 00:00:00 [place] [facility] PPSV23 (PNEUMOVAX) Branch PPD (TB) 2001-10-04 Completed [facility] of 00:00:00 [facility] Pneumococcal 2001-10-04 Completed University o f Polysaccharide, 00:00:00 [place] [facility] PPSV23 (PNEUMOVAX) [facility] PPD (TB) 2001-10-04 Completed [facility] of 00:00:00 [facility] Vital Signs Vital Name Observation Time Observation Value Comments Source Systolic blood 2023-01-27 23:00:00 179 mm[Hg] Univer sity of pressure [facility] Diastolic blood 2023-01-27 23:00:00 101 [facility]23[facility]-27 23:00:00 58 /min [facility] Respiratory rate 2023-01-27 23:00:00 12 /min [facility] O[facility] saturation in 2023-01-27 23:00:00 99 /min [facility] Arterial blood by [facility] Pulse oximetry [place] Body temperature 2023-01-27 15:46:00 37.28 Amina [facility] Body weight 2023-01-27 15:46:00 79.379 kg [facility] BMI 2023-01-27 15:46:00 30.04 kg/m2 [facility] Systolic blood 2022-05-10 22:00:00 159 mm[Hg] Univer [...] /min University of Arterial blood by [facility] porfirio Pulse oximetry Branch Body weight [...] 100 /min [facility] of Arterial blood by [facility] Pulse oximetry Branch Body temperature [...] 2022-05-07 00:00:00 14 /min Univ ers[facility] Oxygen saturation in 2022-05-07 00:00:00 99 /min [facility] Arterial blood by [facility] porfirio Pulse oximetry [facility] Body temperature 2022-05-06 20:12:00 36.5 Amina [facility] Body height 2022-05-06 20:12:00 162.6 cm [facility] Body weight 2022-05-06 20:12:00 78.926 kg [facility] BMI 2022-05-06 20:12:00 29.87 kg/m2 [facility] Systolic blood 2022-04-22 19:50:00 156 [...] 96 /min [facility] of Arterial blood by [facility] Pulse oximetry Branch Systolic blood [...] /min University of Arterial blood by [facility] Pulse oximetry Branch Body height [...] 2021-11-20 13:42:00 16 /min [facility] Body height 2021-11-20 13:42:00 162.6 cm [facility] Body weight 2021-11-20 13:42:00 84.369 kg [facility] BMI 2021-11-20 13:42:00 31.93 kg/m2 [facility] Systolic blood 2021-07-14 15:18:00 142 [...] 22:00:00 159 mm[Hg] Univer sity of pressure [facility] Diastolic blood 2022-05-10 22:00:00 87 mm[Hg] Unive rsity of pressure [facility] Heart rate 2022-05-10 22:00:00 56 /min [facility] [place] Body temperature 2022-05-10 22:00:00 36.61 Amina Univ ersity of [facility] Respiratory rate 2022-05-10 22:00:00 17 /min [facility] Oxygen saturation in 2022-05-10 22:00:00 98 /min [facility] Arterial blood by [facility] Pulse oximetry [facility] Body weight 2022-05-10 16:29:00 78.926 kg [facility] BMI 2022-05-10 16:29:00 29.87 kg/m2 [facility] Body height 2022-05-06 20:12:00 162.6 cm [facility] Systolic blood 2022-03-05 15:23:00 167 mm[Hg] Univer sity of pressure [facility] Diastolic blood 2022-03-05 15:23:00 105 mm[Hg] Unive rsity of pressure [facility] Heart rate 2022-03-05 15:23:00 49 /min [facility] Body temperature 2022-03-05 15:18:00 36.67 Amina Univ ersity of [facility] Respiratory rate 2022-03-05 15:18:00 18 /min Univ ersity of [facility] Body height 2022-03-05 15:18:00 162.6 cm Universi ty of [facility] Body weight 2022-03-05 15:18:00 74.707 kg [facility] BMI 2022-03-05 15:18:00 28.27 kg/m2 [facility] Oxygen saturation in 2022-02-16 21:41:00 98 /min University Arterial blood by [facility] Pulse oximetry Branch Systolic blood 2020-12-08 15:48:00 125 mm[Hg] Method [facility] pressure Diastolic blood 2020-12-08 15:48:00 76 mm[Hg] [facility] pressure Heart rate 2020-12-08 15:48:00 64 /min [facility] Body temperature 2020-12-08 15:48:00 36.61 Amina [facility] Respiratory rate 2020-12-08 15:48:00 17 /min [facility] Body height 2020-12-08 15:48:00 162.6 cm [facility] Body weight 2020-12-08 15:48:00 98.884 kg [facility] BMI 2020-12-08 15:48:00 37.42 kg/m2 [facility] Oxygen saturation in 2020-12-08 15:48:00 97 /min [facility] Arterial blood by Pulse oximetry Respitory Rate 2020-08-30 13:00:00 Memori al Marty Systolic (mm Hg) 2020-08-30 13:00:00 Caesar rial Amrty Diastolic (mm Hg) 2020-08-30 13:00:00 Mem orial Marty Systolic (mm Hg) 2020-08-30 11:00:00 Caesar rial Marty Diastolic (mm Hg) 2020-08-30 11:00:00 Mem orial [facility] Temperature Oral (F) 2020-08-30 11:00:00 98.4 F [facility] Respitory Rate 2020-08-30 11:00:00 [facility] Respitory Rate 2020-08-30 10:00:00 Memori al Marty Systolic (mm Hg) 2020-08-30 10:00:00 Caesar rial [place] Diastolic (mm Hg) 2020-08-30 10:00:00 Mem orial Marty Temperature Oral (F) 2020-08-30 00:00:00 96.9 F [facility] Temperature Oral (F) 2020-08-29 11:26:00 97.6 F [facility] Height 2020-08-29 10:30:00 162.56 cm [facility] Weight 2020-08-29 10:30:00 [facility] BMI Calculated 2020-08-29 10:30:00 [place] Hammond Procedures Procedure Date / Time Performing Clinician Source Performed PROTHROMBIN TIME / INR 2023-01-27 21:09:00 Bill Coles [facility] ACTIVATED PARTIAL THRMPLAS 2023-01-27 21:09:00 [facility] 2023-01-27 20:54:00 Bill Coles [facility] CONTRAST [facility] LIPASE 2023-01-27 18:58:00 Bill Coles [facility] MAGNESIUM 2023-01-27 18:58:00 Bill Coles [facility] TROPONIN I 2023-01-27 18:58:00 Bill Coles [facility] COMP. METABOLIC PANEL 2023-01-27 18:58:00 Bill Coles [facility] ([id number]) [facility] CBC WITH DIFF 2023-01-27 18:58:00 Bill Coles [facility] URINALYSIS 2023-01-27 18:58:00 Bill Coles [facility] COVID-19 (ID NOW RAPID 2023-01-27 16:32:00 Bill Coles [facility] TESTING) [facility] URINALYSIS 2022-05-10 19:36:00 Home Matthews B [facility] TROPONIN I 2022-05-10 18:34:00 Home Matthews B [facility] COMP. METABOLIC PANEL 2022-05-10 18:34:00 Home Matthews Univelver [facility] ([id number]) [facility] CBC WITH DIFF 2022-05-10 18:34:00 Home Matthews B [facility] XR CHEST 2 VW 2022-05-10 17:24:58 Home Matthews [facility] CONSENT/REFUSAL FOR 2022-05-10 16:26:23 Doctor Unasseunice, [facility] DIAGNOSIS AND TREATMENT [place] [facility] CONSENT/REFUSAL FOR 2022-05-10 16:26:09 Doctor Unasseunice, [facility] DIAGNOSIS AND TREATMENT [place] [facility] URINALYSIS 2022-05-08 22:43:00 Theresa Hickman [facility] XR CHEST 2 VW 2022-05-06 22:56:53 Anette Olea [facility] COMP. METABOLIC PANEL 2022-05-06 22:14:00 Anette Olea [facility] ([id number]) Medical Branch CBC WITH DIFF 2022-05-06 22:14:00 Anette Oela [facility] COVID-19 (ID NOW RAPID 2022-05-06 22:14:00 Anette Olea [facility] TESTING) Medical Branch BASIC METABOLIC PANEL (NA, 2022-04-22 21:23:00 Paulette Gray [facility] K, CL, CO2, GLUCOSE, BUN, Medica [facility] [place] CREATININE, CA) CBC WITH DIFF 2022-04-22 21:23:00 Paulette Gray [facility] CONSENT/REFUSAL FOR 2022-04-22 19:45:46 Doctor Daron, [facility] DIAGNOSIS AND TREATMENT [place] [facility] SARS-COV-2 COVID-19 2022-03-05 16:09:27 [facility] DIMITRIS-SUCROSE VACCINE [address] [place] [address] YRS+, BIVALENT 0.3ML, IM, (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) FLU 2022-03-05 16:09:27 [facility] VACC(),65+YR,0.5 Medica l Branch ML,IM,ADJUVANTED,QUAD(FLUA D) FLU 2022-03-05 16:09:27 [facility] VACC(),65+YR,0.5 Medica l Branch ML,IM,ADJUVANTED,QUAD(FLUA D) SARS-COV-2 COVID-19 2022-03-05 16:09:27 Santiago Cardenas [facility] DIMITRIS-SUCROSE VACCINE 12 Medical Branch YRS+, BIVALENT 0.3ML, IM, (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) MAGNESIUM 2022-02-15 09:41:00 Radha [facility] BASIC METABOLIC PANEL (NA, 2022-02-15 09:41:00 Sofia Garcia [facility] K, CL, CO2, GLUCOSE, BUN, Medica l Branch CREATININE, CA) CBC WITH DIFF 2022-02-15 09:41:00 Radha [facility] N-TERMINAL PRO-BNP 2022-02-15 09:41:00 Radha Sofia [facility] CBC WITH DIFF 2022-02-15 09:41:00 Radha [facility] BASIC METABOLIC PANEL (NA, 2022-02-15 09:41:00 Radha Sofia [facility] K, CL, CO2, GLUCOSE, BUN, Medica l Branch CREATININE, CA) MAGNESIUM 2022-02-15 09:41:00 Radha [facility] N-TERMINAL PRO-BNP 2022-02-15 09:41:00 Sfoia Garcia [facility] BASIC METABOLIC PANEL (NA, 2022-02-13 09:40:00 Radha Sofia [facility] K, CL, CO2, GLUCOSE, BUN, Medica l Branch CREATININE, CA) CBC WITH DIFF 2022-02-13 09:40:00 Radha [facility] BASIC METABOLIC PANEL (NA, 2022-02-13 09:40:00 Radha [facility] K, CL, CO2, GLUCOSE, BUN, Medica l Branch CREATININE, CA) CBC WITH DIFF 2022-02-13 09:40:00 Radha Sofia [facility] TROPONIN I 2022-02-11 23:41:00 Radha [facility] N-TERMINAL PRO-BNP 2022-02-11 23:41:00 Radha Sofia [facility] TROPONIN I 2022-02-11 23:41:00 Radha [facility] N-TERMINAL PRO-BNP 2022-02-11 23:41:00 Sofia Garcia [facility] HB ECG ROUTINE & RHYTHM 2022-02-11 22:15:36 [facility] 2022-02-11 21:26:50 [facility] 2022-02-11 21:26:50 [facility] PELVIS W 2022-02-11 07:45:43 Reilly Means [facility] CONTRAST [facility] CT ABDOMEN PELVIS W 2022-02-11 07:45:43 Reilly Means [facility] CONTRAST [facility] RAPID INFLUENZA A/B 2022-02-11 06:54:00 Reilly Means [facility] RAPID INFLUENZA A/B 2022-02-11 06:54:00 Reilly Means [facility] URINALYSIS 2022-02-11 06:45:00 Reilly Means [facility] URINE CULTURE 2022-02-11 06:45:00 Reilly Means [facility] URINALYSIS 2022-02-11 06:45:00 Reilly Means [facility] URINE CULTURE 2022-02-11 06:45:00 Reilly Means [facility] HB ECG ROUTINE & RHYTHM 2022-02-11 05:22:08 Reilly Means [facility] HB ECG ROUTINE & RHYTHM 2022-02-11 05:22:08 Reilly Means [facility] BLOOD CULTURE SCREEN 2022-02-11 04:58:00 Reilly Means [facility] TROPONIN I 2022-02-11 04:58:00 Reilly Means [facility] COMP. METABOLIC PANEL 2022-02-11 04:58:00 Reilly Means [facility] ([id number]) [facility] CBC WITH DIFF 2022-02-11 04:58:00 Reilly Means [facility] PROTHROMBIN TIME / INR 2022-02-11 04:58:[address] [facility] ACTIVATED PARTIAL THRMPLAS 2022-02-11 04:58:00 Reilly Means [facility] N-TERMINAL PRO-BNP 2022-02-11 04:58:00 Reilly Means [facility] LACTIC ACID WHOLE BLOOD 2022-02-11 04:58:00 [facility] COVID-[facility] (ID NOW RAPID 2022-02-11 04:58:00 Reilly Means [facility] TESTING) Medical Branch LAB ONLY COVID 2022-02-11 04:58:00 Reilly Means [facility] CBC WITH DIFF 2022-02-11 04:58:00 Reilly Means [facility] ACTIVATED PARTIAL THRMPLAS 2022-02-11 04:58:00 Reilly Means [facility] PROTHROMBIN TIME / INR 2022-02-11 04:58:[address] [facility] COVID-19 (ID NOW RAPID 2022-02-11 04:58:00 Reilly Means [facility] TESTING) Medical Branch COMP. METABOLIC PANEL 2022-02-11 04:58:00 Reilly Means [facility] ([id number]) Medical Branch TROPONIN I 2022-02-11 04:58:00 Reilly Means [facility] N-TERMINAL PRO-BNP 2022-02-11 04:58:00 Reilly Means [facility] BLOOD CULTURE SCREEN 2022-02-11 04:58:00 Reilly Means [facility] LACTIC ACID WHOLE BLOOD 2022-02-11 04:58:00 [facility]illy [facility] LAB ONLY COVID 2022-02-11 04:58:00 Reilly Means [facility] XR CHEST 1 VW 2022-02-11 04:27:42 Reilly Means [facility] XR CHEST 1 VW 2022-02-11 04:27:42 Reilly Means [facility] HOSPITAL ADMISSION 2022-02-10 05:01:00 Doctor Unassigned, [facility] [place] [facility] HOSPITAL ADMISSION 2022-02-10 05:01:00 [facility] [place] [facility] ECG 12-LEAD 2021-07-14 15:14:00 Elan Lira [facility] [id number] 2021-06-17 00:00:00 RIKY Freedman [facility] GASTROINTESTINAL PANEL 2020-12-08 22:21:00 [facility] XR ABDOMEN 1 VW 2020-12-08 18:06:32 Eliseo Arce [facility]ital [place] < 1 HOUR 2020-09-05 22:39:00 Eliseo Arce [facility] SURGICAL PATHOLOGY REQUEST 2020-09-05 21:54:00 Eliseo Arce [facility] XR CHEST 1 VW PORTABLE 2020-09-05 19:55:00 [facility] Hospital DISCHARGE PATIENT 2020-09-05 17:27:55 Lucas Harris [facility] [place] AN ELECTIVE 2020-09-05 16:47:23 Kirit Flood [facility] ENDOTRACHEAL AIRWAY EGD, INTRAOPERATIVE 2020-09-05 16:27:00 [facility] 2020-09-05 15:04:00 Sarai Maharaj [facility] TIME (PTT) M. PROTHROMBIN TIME WITH INR 2020-09-05 15:04:00 Mindy Maharaj [facility] M. Plan of Care Planned Activity Planned Date Details Comments Source Future Scheduled 2023 Screening for [facility] Test 08:21:28 malignant neoplasm of colon (procedure) [code = 620994960] Future Scheduled 2023 Screening for [facility] Test 08:21:28 malignant neoplasm of colon (procedure) [code = 317869761] Future Scheduled 2023 Screening for [facility] Test 08:21:28 malignant neoplasm of colon (procedure) [code = 694225182] Future Scheduled 2023 SHINGLES VACCINES (1 Met [facility] Test 08:21:28 of 2) [code = SHINGLES VACCINES (1 of 2)] Future Scheduled 2023 BREAST CANCER [facility] Test 08:21:28 SCREENING [code = BREAST CANCER SCREENING] Future Scheduled 2023 Screening for [facility] Test 08:21:28 malignant neoplasm of colon (procedure) [code = 708461147] Future Scheduled 2023 Screening for [facility] Test 08:21:28 malignant neoplasm of colon (procedure) [code = 441113867] Future Scheduled 2023 HEPATITIS B VACCINES Met [facility] Test 08:21:28 (1 of 3 - Risk 3-dose series) [code = HEPATITIS B VACCINES (1 of 3 - Risk 3-dose series)] Future Scheduled 2023 COVID-19 VACCINE (3 - [facility] Test 08:21:28 Pfizer series) [code = COVID-19 VACCINE (3 - Pfizer series)] Future Scheduled 2023 65+ PNEUMOCOCCAL [facility] Test 08:21:28 VACCINE (4 - PPSV23 if available, else PCV20) [code = 65+ PNEUMOCOCCAL VACCINE (4 - PPSV23 if available, else PCV20)] Future Scheduled 2023 INFLUENZA VACCINE (#1) M [facility] Test 08:21:28 [code = INFLUENZA VACCINE (#1)] Future Scheduled 2023 Screening for [facility] Test 08:21:28 malignant neoplasm of colon (procedure) [code = 082635767] Future Scheduled 2023 Screening for [facility] Test 08:21:28 malignant neoplasm of colon (procedure) [code = 627595445] Future Scheduled 2023 Screening for [facility] Test 08:21:28 malignant neoplasm of colon (procedure) [code = 947391233] Future Scheduled 2023 SHINGLES VACCINES (1 Met [facility] Test 08:21:28 of 2) [code = SHINGLES VACCINES (1 of 2)] Future Scheduled 2023 BREAST CANCER [facility] Test 08:21:28 SCREENING [code = BREAST CANCER SCREENING] Future Scheduled 2023 Screening for [facility] Test 08:21:28 malignant neoplasm of colon (procedure) [code = 134475777] Future Scheduled 2023 Screening for [facility] Test 08:21:28 malignant neoplasm of colon (procedure) [code = 324482155] Future Scheduled 2023 HEPATITIS B VACCINES Met [facility] Test 08:21:28 (1 of 3 - Risk 3-dose series) [code = HEPATITIS B VACCINES (1 of 3 - Risk 3-dose series)] Future Scheduled 2023 COVID-19 VACCINE (3 - [facility] Test 08:21:28 Pfizer series) [code = COVID-19 VACCINE (3 - Pfizer series)] Future Scheduled 2023 65+ PNEUMOCOCCAL [facility] Test 08:21:28 VACCINE (4 - PPSV23 if available, else PCV20) [code = 65+ PNEUMOCOCCAL VACCINE (4 - PPSV23 if available, else PCV20)] Future Scheduled 2023 INFLUENZA VACCINE (#1) M [facility] Test 08:21:28 [code = INFLUENZA VACCINE (#1)] Future Scheduled 2023-01-17 Screening for [facility] Test 02:09:59 malignant neoplasm of colon (procedure) [code = 561029052] Future Scheduled 2023-01-17 Screening for [facility] Test 02:09:59 malignant neoplasm of colon (procedure) [code = 103520030] Future Scheduled 2023-01-17 Screening for [facility] Test 02:09:59 malignant neoplasm of colon (procedure) [code = 279663578] Future Scheduled 2023-01-17 SHINGLES VACCINES (1 Met [facility] Test 02:09:59 of 2) [code = SHINGLES VACCINES (1 of 2)] Future Scheduled 2023-01-17 BREAST CANCER [facility] Test 02:09:59 SCREENING [code = BREAST CANCER SCREENING] Future Scheduled 2023-01-17 Screening for [facility] Test 02:09:59 malignant neoplasm of colon (procedure) [code = 619720476] Future Scheduled 2023-01-17 Screening for [facility] Test 02:09:59 malignant neoplasm of colon (procedure) [code = 495625585] Future Scheduled 2023-01-17 HEPATITIS B VACCINES Met [facility] Test 02:09:59 (1 of 3 - Risk 3-dose series) [code = HEPATITIS B VACCINES (1 of 3 - Risk 3-dose series)] Future Scheduled 2023-01-17 COVID-19 VACCINE (3 - [facility] Test 02:09:59 Pfizer series) [code = COVID-19 VACCINE (3 - Pfizer series)] Future Scheduled 2023-01-17 65+ PNEUMOCOCCAL [facility] Test 02:09:59 VACCINE (4 - PPSV23 if available, else PCV20) [code = 65+ PNEUMOCOCCAL VACCINE (4 - PPSV23 if available, else PCV20)] Future Scheduled 2023-01-17 INFLUENZA VACCINE (#1) [facility] Test 02:09:59 [code = INFLUENZA VACCINE (#1)] Future Scheduled 2022-12-23 Screening for [facility] Test 06:27:39 malignant neoplasm of colon (procedure) [code = 787719180] Future Scheduled 2022-12-23 Screening for [facility] Test 06:27:39 malignant neoplasm of colon (procedure) [code = 746128506] Future Scheduled 2022-12-23 Screening for [facility] Test 06:27:39 malignant neoplasm of colon (procedure) [code = 205452845] Future Scheduled 2022-12-23 SHINGLES VACCINES (1 Met [facility] Test 06:27:39 of 2) [code = SHINGLES VACCINES (1 of 2)] Future Scheduled 2022-12-23 BREAST CANCER [facility] Test 06:27:39 SCREENING [code = BREAST CANCER SCREENING] Future Scheduled 2022-12-23 Screening for [facility] Test 06:27:39 malignant neoplasm of colon (procedure) [code = 468319320] Future Scheduled 2022-12-23 Screening for [facility] Test 06:27:39 malignant neoplasm of colon (procedure) [code = 144447524] Future Scheduled 2022-12-23 HEPATITIS B VACCINES Met [facility] Test 06:27:39 (1 of 3 - Risk 3-dose series) [code = HEPATITIS B VACCINES (1 of 3 - Risk 3-dose series)] Future Scheduled 2022-12-23 COVID-19 VACCINE (3 - [facility] Test 06:27:39 Pfizer series) [code = COVID-19 VACCINE (3 - Pfizer series)] Future Scheduled 2022-12-23 65+ PNEUMOCOCCAL [facility] Test 06:27:39 VACCINE (4 - PPSV23 if available, else PCV20) [code = 65+ PNEUMOCOCCAL VACCINE (4 - PPSV23 if available, else PCV20)] Future Scheduled 2022-12-23 INFLUENZA VACCINE [facility] Test 06:27:39 [code = INFLUENZA VACCINE] Future Scheduled 2022-12-23 Screening for [facility] Test 06:27:39 malignant neoplasm of colon (procedure) [code = 438685414] Future Scheduled 2022-12-23 Screening for [facility] Test 06:27:39 malignant neoplasm of colon (procedure) [code = 232819590] Future Scheduled 2022-12-23 Screening for [facility] Test 06:27:39 malignant neoplasm of colon (procedure) [code = 894168562] Future Scheduled 2022-12-23 SHINGLES VACCINES (1 Met [facility] Test 06:27:39 of 2) [code = SHINGLES VACCINES (1 of 2)] Future Scheduled 2022-12-23 BREAST CANCER [facility] Test 06:27:39 SCREENING [code = BREAST CANCER SCREENING] Future Scheduled 2022-12-23 Screening for [facility] Test 06:27:39 malignant neoplasm of colon (procedure) [code = 286107988] Future Scheduled 2022-12-23 Screening for [facility] Test 06:27:39 malignant neoplasm of colon (procedure) [code = 605587106] Future Scheduled 2022-12-23 HEPATITIS B VACCINES Met [facility] Test 06:27:39 (1 of 3 - Risk 3-dose series) [code = HEPATITIS B VACCINES (1 of 3 - Risk 3-dose series)] Future Scheduled 2022-12-23 COVID-19 VACCINE (3 - [facility] Test 06:27:39 Pfizer series) [code = COVID-19 VACCINE (3 - Pfizer series)] Future Scheduled 2022-12-23 65+ [facility]AL [facility] 06:27:39 VACCINE (4 - PPSV23 if available, else PCV20) [code = 65+ PNEUMOCOCCAL VACCINE (4 - PPSV23 if available, else PCV20)] Future Scheduled 2022-12-23 INFLUENZA VACCINE Method [facility] Test 06:27:39 [code = INFLUENZA VACCINE] Future Scheduled 2022-12-23 Screening for [facility] Test 06:27:39 malignant neoplasm of colon (procedure) [code = 622465365] Future Scheduled 2022-12-23 Screening for [facility] Test 06:27:39 malignant neoplasm of colon (procedure) [code = 296020015] Future Scheduled 2022-12-23 Screening for [facility] Test 06:27:39 malignant neoplasm of colon (procedure) [code = 836201428] Future Scheduled 2022-12-23 SHINGLES VACCINES (1 Met [facility] Test 06:27:39 of 2) [code = SHINGLES VACCINES (1 of 2)] Future Scheduled 2022-12-23 BREAST CANCER [facility] Test 06:27:39 SCREENING [code = BREAST CANCER SCREENING] Future Scheduled 2022-12-23 Screening for [facility] Test 06:27:39 malignant neoplasm of colon (procedure) [code = 899690558] Future Scheduled 2022-12-23 Screening for [facility] Test 06:27:39 malignant neoplasm of colon (procedure) [code = 744173646] Future Scheduled 2022-12-23 HEPATITIS B VACCINES Met [facility] Test 06:27:39 (1 of 3 - Risk 3-dose series) [code = HEPATITIS B VACCINES (1 of 3 - Risk 3-dose series)] Future Scheduled 2022-12-23 COVID-19 VACCINE (3 - [facility] Test 06:27:39 Pfizer series) [code = COVID-19 VACCINE (3 - Pfizer series)] Future Scheduled 2022-12-23 65+ PNEUMOCOCCAL [facility] Test 06:27:39 VACCINE (4 - PPSV23 if available, else PCV20) [code = 65+ PNEUMOCOCCAL VACCINE (4 - PPSV23 if available, else PCV20)] Future Scheduled 2022-12-23 INFLUENZA VACCINE Method [facility] Test 06:27:39 [code = INFLUENZA VACCINE] Future Scheduled 2022-12-23 Screening for [facility] Test 06:27:39 malignant neoplasm of colon (procedure) [code = 580880266] Future Scheduled 2022-12-23 Screening for [facility] Test 06:27:39 malignant neoplasm of colon (procedure) [code = 330205100] Future Scheduled 2022-12-23 Screening for [facility] Test 06:27:39 malignant neoplasm of colon (procedure) [code = 488244988] Future Scheduled 2022-12-23 SHINGLES VACCINES (1 Met [facility] Test 06:27:39 of 2) [code = SHINGLES VACCINES (1 of 2)] Future Scheduled 2022-12-23 BREAST CANCER [facility] Test 06:27:39 SCREENING [code = BREAST CANCER SCREENING] Future Scheduled 2022-12-23 Screening for [facility] Test 06:27:39 malignant neoplasm of colon (procedure) [code = 868354506] Future Scheduled 2022-12-23 Screening for [facility] Test 06:27:39 malignant neoplasm of colon (procedure) [code = 557527442] Future Scheduled 2022-12-23 HEPATITIS B VACCINES Met [facility] Test 06:27:39 (1 of 3 - Risk 3-dose series) [code = HEPATITIS B VACCINES (1 of 3 - Risk 3-dose series)] Future Scheduled 2022-12-23 COVID-19 VACCINE (3 - [facility] Test 06:27:39 Pfizer series) [code = COVID-19 VACCINE (3 - Pfizer series)] Future Scheduled 2022-12-23 65+ [facility]CCAL [facility] Test 06:27:39 VACCINE (4 - PPSV23 if available, else PCV20) [code = 65+ PNEUMOCOCCAL VACCINE (4 - PPSV23 if available, else PCV20)] Future Scheduled 2022-12-23 INFLUENZA VACCINE Method t Hospital Test 06:27:39 [code = INFLUENZA VACCINE] Future Scheduled 2022-12-23 [facility] malignant neoplasm of colon (procedure) [code = 836276356] Future Scheduled 2022-12-23 Screening for [facility] Test 06:27:39 malignant neoplasm of colon (procedure) [code = 944794583] Future Scheduled 2022-12-23 Screening for [facility] Test 06:27:39 malignant neoplasm of colon (procedure) [code = 362967536] Future Scheduled 2022-12-23 SHINGLES VACCINES (1 Met [facility] Test 06:27:39 of 2) [code = SHINGLES VACCINES (1 of 2)] Future Scheduled 2022-12-23 BREAST CANCER [facility] Test 06:27:39 SCREENING [code = BREAST CANCER SCREENING] Future Scheduled 2022-12-23 Screening for [facility] Test 06:27:39 malignant neoplasm of colon (procedure) [code = 159960447] Future Scheduled 2022-12-23 Screening for [facility] Test 06:27:39 malignant neoplasm of colon (procedure) [code = 050522705] Future Scheduled 2022-12-23 HEPATITIS B VACCINES Met [facility] Test 06:27:39 (1 of 3 - Risk 3-dose series) [code = HEPATITIS B VACCINES (1 of 3 - Risk 3-dose series)] Future Scheduled 2022-12-23 COVID-19 VACCINE (3 - [facility] Test 06:27:39 Pfizer series) [code = COVID-19 VACCINE (3 - Pfizer series)] Future Scheduled 2022-12-23 65+ PNEUMOCOCCAL [facility] Test 06:27:39 VACCINE (4 - PPSV23 if available, else PCV20) [code = 65+ PNEUMOCOCCAL VACCINE (4 - PPSV23 if available, else PCV20)] Future Scheduled 2022-12-23 ZZZ INFLUENZA VACCINE [facility] Test 06:27:39 [code = ZZZ INFLUENZA VACCINE] Future Scheduled 2022-12-23 Screening for [facility] Test 06:27:39 malignant neoplasm of colon (procedure) [code = [id number]] Future Scheduled 2022-12-23 Screening for [facility] Test 06:27:39 malignant neoplasm of colon (procedure) [code = 857010322] Future Scheduled 2022-12-23 Screening for [facility] Test 06:27:39 malignant neoplasm of colon (procedure) [code = 729124900] Future Scheduled 2022-12-23 SHINGLES VACCINES (1 Met [facility] Test 06:27:39 of 2) [code = SHINGLES VACCINES (1 of 2)] Future Scheduled 2022-12-23 BREAST CANCER [facility] Test 06:27:39 SCREENING [code = BREAST CANCER SCREENING] Future Scheduled 2022-12-23 Screening for [facility] Test 06:27:39 malignant neoplasm of colon (procedure) [code = 525047010] Future Scheduled 2022-12-23 Screening for [facility] Test 06:27:39 malignant neoplasm of colon (procedure) [code = 306127853] Future Scheduled 2022-12-23 HEPATITIS B VACCINES Met [facility] Test 06:27:39 (1 of 3 - Risk 3-dose series) [code = HEPATITIS B VACCINES (1 of 3 - Risk 3-dose series)] Future Scheduled 2022-12-23 COVID-19 VACCINE (3 - [facility] Test 06:27:39 Pfizer series) [code = COVID-19 VACCINE (3 - Pfizer series)] Future Scheduled 2022-12-23 65+ [facility] Test 06:27:39 VACCINE (4 - PPSV23 if available, else PCV20) [code = 65+ PNEUMOCOCCAL VACCINE (4 - PPSV23 if available, else PCV20)] Future Scheduled 2022-12-23 ZZZ INFLUENZA VACCINE [facility] Test 06:27:39 [code = ZZZ INFLUENZA VACCINE] Future Scheduled 2022-12-13 Screening for [facility] Test 16:46:16 malignant neoplasm of colon (procedure) [code = [id number]] Future Scheduled 2022-12-13 Screening for [facility] Test 16:46:16 malignant neoplasm of colon (procedure) [code = 933302863] Future Scheduled 2022-12-13 Screening for [facility] Test 16:46:16 malignant neoplasm of colon (procedure) [code = 642201403] Future Scheduled 2022-12-13 SHINGLES VACCINES (1 Met [facility] Test 16:46:16 of 2) [code = SHINGLES VACCINES (1 of 2)] Future Scheduled 2022-12-13 BREAST CANCER [facility] Test 16:46:16 SCREENING [code = BREAST CANCER SCREENING] Future Scheduled 2022-12-13 Screening for [facility] Test 16:46:16 malignant neoplasm of colon (procedure) [code = 404736901] Future Scheduled 2022-12-13 Screening for [facility] Test 16:46:16 malignant neoplasm of colon (procedure) [code = 987288483] Future Scheduled 2022-12-13 HEPATITIS B VACCINES Met [facility] Test 16:46:16 (1 of 3 - Risk 3-dose series) [code = HEPATITIS B VACCINES (1 of 3 - Risk 3-dose series)] Future Scheduled 2022-12-13 COVID-19 VACCINE (3 - Me [facility] Test 16:46:16 Pfizer series) [code = COVID-19 VACCINE (3 - Pfizer series)] Future Scheduled 2022-12-13 65+ [facility]AL [facility] Test 16:46:16 VACCINE (4 - PPSV23 if available, else PCV20) [code = 65+ PNEUMOCOCCAL VACCINE (4 - PPSV23 if available, else PCV20)] Future Scheduled 2022-12-13 INFLUENZA VACCINE Method [facility] Test 16:46:16 [code = INFLUENZA VACCINE] Future Scheduled 2022-12-13 Screening for [facility] Test 16:46:16 malignant neoplasm of colon (procedure) [code = [id number]] Future Scheduled 2022-12-13 Screening for [facility] Test 16:46:16 malignant neoplasm of colon (procedure) [code = 735399184] Future Scheduled 2022-12-13 Screening for [facility] Test 16:46:16 malignant neoplasm of colon (procedure) [code = 777689656] Future Scheduled 2022-12-13 SHINGLES VACCINES (1 Met [facility] Test 16:46:16 of 2) [code = SHINGLES VACCINES (1 of 2)] Future Scheduled 2022-12-13 BREAST CANCER [facility] Test 16:46:16 SCREENING [code = BREAST CANCER SCREENING] Future Scheduled 2022-12-13 Screening for [facility] Test 16:46:16 malignant neoplasm of colon (procedure) [code = 847212858] Future Scheduled 2022-12-13 Screening for [facility] Test 16:46:16 malignant neoplasm of colon (procedure) [code = 496177033] Future Scheduled 2022-12-13 HEPATITIS B VACCINES Met [facility] Test 16:46:16 (1 of 3 - Risk 3-dose series) [code = HEPATITIS B VACCINES (1 of 3 - Risk 3-dose series)] Future Scheduled 2022-12-13 COVID-19 VACCINE (3 - Me [facility] Test 16:46:16 Pfizer series) [code = COVID-19 VACCINE (3 - Pfizer series)] Future Scheduled 2022-12-13 65+ [facility]AL [facility] Test 16:46:16 VACCINE (4 - PPSV23 if available, else PCV20) [code = 65+ PNEUMOCOCCAL VACCINE (4 - PPSV23 if available, else PCV20)] Future Scheduled 2022-12-13 INFLUENZA VACCINE Method [facility] Test 16:46:16 [code = INFLUENZA VACCINE] Future Scheduled 2022-12-13 Screening for [facility] Test 16:46:16 malignant neoplasm of colon (procedure) [code = 986565884] Future Scheduled 2022-12-13 Screening for [facility] Test 16:46:16 malignant neoplasm of colon (procedure) [code = 863150162] Future Scheduled 2022-12-13 Screening for [facility] Test 16:46:16 malignant neoplasm of colon (procedure) [code = 329577686] Future Scheduled 2022-12-13 SHINGLES VACCINES (1 Met [facility] Test 16:46:16 of 2) [code = SHINGLES VACCINES (1 of 2)] Future Scheduled 2022-12-13 BREAST CANCER [facility] Test 16:46:16 SCREENING [code = BREAST CANCER SCREENING] Future Scheduled 2022-12-13 Screening for [facility] Test 16:46:16 malignant neoplasm of colon (procedure) [code = 982664170] Future Scheduled 2022-12-13 Screening for [facility] Test 16:46:16 malignant neoplasm of colon (procedure) [code = 980615311] Future Scheduled 2022-12-13 HEPATITIS B VACCINES Met [facility] Test 16:46:16 (1 of 3 - Risk 3-dose series) [code = HEPATITIS B VACCINES (1 of 3 - Risk 3-dose series)] Future Scheduled 2022-12-13 COVID-19 VACCINE (3 - Me [facility] Test 16:46:16 Pfizer series) [code = COVID-19 VACCINE (3 - Pfizer series)] Future Scheduled 2022-12-13 65+ PNEUMOCOCCAL [facility] Test 16:46:16 VACCINE (4 - PPSV23 if available, else PCV20) [code = 65+ PNEUMOCOCCAL VACCINE (4 - PPSV23 if available, else PCV20)] Future Scheduled 2022-12-13 INFLUENZA VACCINE Method [facility] Test 16:46:16 [code = INFLUENZA VACCINE] Future Scheduled 2022-11-11 Screening for [facility] Test 09:27:47 malignant neoplasm of colon (procedure) [code = 444207067] Future Scheduled 2022-11-11 Screening for [facility] Test 09:27:47 malignant neoplasm of colon (procedure) [code = 084650161] Future Scheduled 2022-11-11 Screening for [facility] Test 09:27:47 malignant neoplasm of colon (procedure) [code = 399933594] Future Scheduled 2022-11-11 SHINGLES VACCINES (1 Met [facility] Test 09:27:47 of 2) [code = SHINGLES VACCINES (1 of 2)] Future Scheduled 2022-11-11 BREAST CANCER [facility] Test 09:27:47 SCREENING [code = BREAST CANCER SCREENING] Future Scheduled 2022-11-11 Screening for [facility] Test 09:27:47 malignant neoplasm of colon (procedure) [code = 358974298] Future Scheduled 2022-11-11 Screening for [facility] Test 09:27:47 malignant neoplasm of colon (procedure) [code = 928136923] Future Scheduled 2022-11-11 HEPATITIS B VACCINES Met [facility] Test 09:27:47 (1 of 3 - Risk 3-dose series) [code = HEPATITIS B VACCINES (1 of 3 - Risk 3-dose series)] Future Scheduled 2022-11-11 COVID-19 VACCINE (3 - Me [facility] Test 09:27:47 Pfizer series) [code = COVID-19 VACCINE (3 - Pfizer series)] Future Scheduled 2022-11-11 65+ PNEUMOCOCCAL [facility] Test 09:27:47 VACCINE (4 - PPSV23 if available, else PCV20) [code = 65+ PNEUMOCOCCAL VACCINE (4 - PPSV23 if available, else PCV20)] Future Scheduled 2022-11-11 INFLUENZA VACCINE Method [facility] Test 09:27:47 [code = INFLUENZA VACCINE] Future Scheduled [facility]22-11-11 [facility] malignant neoplasm of colon (procedure) [code = 498010236] Future Scheduled 2022-11-11 Screening for [facility] Test 09:27:47 malignant neoplasm of colon (procedure) [code = 525721940] Future Scheduled 2022-11-11 Screening for [facility] Test 09:27:47 malignant neoplasm of colon (procedure) [code = 005632933] Future Scheduled 2022-11-11 SHINGLES VACCINES (1 Met [facility] Test 09:27:47 of 2) [code = SHINGLES VACCINES (1 of 2)] Future Scheduled 2022-11-11 BREAST CANCER [facility] Test 09:27:47 SCREENING [code = BREAST CANCER SCREENING] Future Scheduled 2022-11-11 Screening for [facility] Test 09:27:47 malignant neoplasm of colon (procedure) [code = 460641732] Future Scheduled 2022-11-11 Screening for [facility] Test 09:27:47 malignant neoplasm of colon (procedure) [code = 376756821] Future Scheduled 2022-11-11 HEPATITIS B VACCINES Met [facility] Test 09:27:47 (1 of 3 - Risk 3-dose series) [code = HEPATITIS B VACCINES (1 of 3 - Risk 3-dose series)] Future Scheduled 2022-11-11 COVID-19 VACCINE (3 - [facility] Test 09:27:47 Pfizer series) [code = COVID-19 VACCINE (3 - Pfizer series)] Future Scheduled 2022-11-11 65+ PNEUMOCOCCAL [facility] Test 09:27:47 VACCINE (4 - PPSV23 if available, else PCV20) [code = 65+ PNEUMOCOCCAL VACCINE (4 - PPSV23 if available, else PCV20)] Future Scheduled 2022-11-11 INFLUENZA VACCINE Method [facility] Test 09:27:47 [code = INFLUENZA VACCINE] Future Scheduled 2022-11-11 Screening for [facility] Test 09:27:47 malignant neoplasm of colon (procedure) [code = 343596664] Future Scheduled 2022-11-11 Screening for [facility] Test 09:27:47 malignant neoplasm of colon (procedure) [code = 281490374] Future Scheduled 2022-11-11 Screening for [facility] Test 09:27:47 malignant neoplasm of colon (procedure) [code = 909105503] Future Scheduled 2022-11-11 SHINGLES VACCINES (1 Met [facility] Test 09:27:47 of 2) [code = SHINGLES VACCINES (1 of 2)] Future Scheduled 2022-11-11 BREAST CANCER [facility] Test 09:27:47 SCREENING [code = BREAST CANCER SCREENING] Future Scheduled 2022-11-11 Screening for [facility] Test 09:27:47 malignant neoplasm of colon (procedure) [code = 135502964] Future Scheduled 2022-11-11 Screening for [facility] Test 09:27:47 malignant neoplasm of colon (procedure) [code = 783419309] Future Scheduled 2022-11-11 HEPATITIS B VACCINES Met [facility] Test 09:27:47 (1 of 3 - Risk 3-dose series) [code = HEPATITIS B VACCINES (1 of 3 - Risk 3-dose series)] Future Scheduled 2022-11-11 COVID-19 VACCINE (3 - [facility] Test 09:27:47 Pfizer series) [code = COVID-19 VACCINE (3 - Pfizer series)] Future Scheduled 2022-11-11 65+ PNEUMOCOCCAL [facility] Test 09:27:47 VACCINE (4 - PPSV23 if available, else PCV20) [code = 65+ PNEUMOCOCCAL VACCINE (4 - PPSV23 if available, else PCV20)] Future Scheduled 2022-11-11 INFLUENZA VACCINE Method [facility] Test 09:27:47 [code = INFLUENZA VACCINE] Future Scheduled 2022-10-27 Screening for [facility] Test 22:40:19 malignant neoplasm of colon (procedure) [code = 183903893] Future Scheduled 2022-10-27 Screening for [facility] Test 22:40:19 malignant neoplasm of colon (procedure) [code = 096766644] Future Scheduled 2022-10-27 Screening for [facility] Test 22:40:19 malignant neoplasm of colon (procedure) [code = 074444574] Future Scheduled 2022-10-27 SHINGLES VACCINES (1 Met [facility] Test 22:40:19 of 2) [code = SHINGLES VACCINES (1 of 2)] Future Scheduled 2022-10-27 BREAST CANCER [facility] Test 22:40:19 SCREENING [code = BREAST CANCER SCREENING] Future Scheduled 2022-10-27 Screening for [facility] Test 22:40:19 malignant neoplasm of colon (procedure) [code = 546197997] Future Scheduled 2022-10-27 Screening for [facility] Test 22:40:19 malignant neoplasm of colon (procedure) [code = 285431436] Future Scheduled 2022-10-27 HEPATITIS B VACCINES Met [facility] Test 22:40:19 (1 of 3 - Risk 3-dose series) [code = HEPATITIS B VACCINES (1 of 3 - Risk 3-dose series)] Future Scheduled 2022-10-27 COVID-19 VACCINE (3 - Me [facility] Test 22:40:19 Pfizer series) [code = COVID-19 VACCINE (3 - Pfizer series)] Future Scheduled 2022-10-27 65+ PNEUMOCOCCAL [facility] Test 22:40:19 VACCINE (4 - PPSV23 if available, else PCV20) [code = 65+ PNEUMOCOCCAL VACCINE (4 - PPSV23 if available, else PCV20)] Future Scheduled 2022-10-27 INFLUENZA VACCINE Method [facility] Test 22:40:19 [code = INFLUENZA VACCINE] Future Scheduled 2022-10-27 Screening for [facility] Test 22:40:19 malignant neoplasm of colon (procedure) [code = 169590278] Future Scheduled 2022-10-27 Screening for [facility] Test 22:40:19 malignant neoplasm of colon (procedure) [code = 244125439] Future Scheduled 2022-10-27 Screening for [facility] Test 22:40:19 malignant neoplasm of colon (procedure) [code = 389745995] Future Scheduled 2022-10-27 SHINGLES VACCINES (1 Met [facility] Test 22:40:19 of 2) [code = SHINGLES VACCINES (1 of 2)] Future Scheduled 2022-10-27 BREAST CANCER [facility] Test 22:40:19 SCREENING [code = BREAST CANCER SCREENING] Future Scheduled 2022-10-27 Screening for [facility] Test 22:40:19 malignant neoplasm of colon (procedure) [code = 453367927] Future Scheduled 2022-10-27 Screening for [facility] Test 22:40:19 malignant neoplasm of colon (procedure) [code = 946014242] Future Scheduled 2022-10-27 HEPATITIS B VACCINES Met [facility] Test 22:40:19 (1 of 3 - Risk 3-dose series) [code = HEPATITIS B VACCINES (1 of 3 - Risk 3-dose series)] Future Scheduled 2022-10-27 COVID-19 VACCINE (3 - [facility] Test 22:40:19 Pfizer series) [code = COVID-19 VACCINE (3 - Pfizer series)] Future Scheduled 2022-10-27 65[facility] VACCINE (4 - PPSV23 if available, else PCV20) [code = 65+ PNEUMOCOCCAL VACCINE (4 - PPSV23 if available, else PCV20)] Future Scheduled 2022-10-27 INFLUENZA VACCINE Method [facility] Test 22:40:19 [code = INFLUENZA VACCINE] Future Scheduled 2022-09-10 SHINGLES VACCINES (1 Met [facility] Test 15:06:53 of 2) [code = SHINGLES VACCINES (1 of 2)] Future Scheduled 2022-09-10 BREAST CANCER [facility] Test 15:06:53 SCREENING [code = BREAST CANCER SCREENING] Future Scheduled 2022-09-10 COLONOSCOPY SCREENING [facility] Test 15:06:53 [code = COLONOSCOPY SCREENING] Future Scheduled 2022-09-10 HEPATITIS B VACCINES Met [facility] Test 15:06:53 (1 of 3 - Risk 3-dose series) [code = HEPATITIS B VACCINES (1 of 3 - Risk 3-dose series)] Future Scheduled 2022-09-10 COVID-19 VACCINE (3 - Me [facility] Test 15:06:53 Booster for Pfizer series) [code = COVID-19 VACCINE (3 - Booster for Pfizer series)] Future Scheduled 2022-09-10 65+ [facility] VACCINE (4 - PPSV23 if available, else PCV20) [code = 65+ PNEUMOCOCCAL VACCINE (4 - PPSV23 if available, else PCV20)] Future Scheduled 2022-09-10 INFLUENZA VACCINE Method [facility] Test 15:06:53 [code = INFLUENZA VACCINE] Future Scheduled 2022-09-10 SHINGLES VACCINES (1 Met [facility] Test 15:06:53 of 2) [code = SHINGLES VACCINES (1 of 2)] Future Scheduled 2022-09-10 BREAST CANCER [facility] Test 15:06:53 SCREENING [code = BREAST CANCER SCREENING] Future Scheduled 2022-09-10 COLONOSCOPY SCREENING [facility] Test 15:06:53 [code = COLONOSCOPY SCREENING] Future Scheduled 2022-09-10 HEPATITIS B VACCINES Met [facility] Test 15:06:53 (1 of 3 - Risk 3-dose series) [code = HEPATITIS B VACCINES (1 of 3 - Risk 3-dose series)] Future Scheduled 2022-09-10 COVID-19 VACCINE (3 - Me [facility] Test 15:06:53 Booster for Pfizer series) [code = COVID-19 VACCINE (3 - Booster for Pfizer series)] Future Scheduled 2022-09-10 65[facility] VACCINE (4 - PPSV23 if available, else PCV20) [code = 65+ PNEUMOCOCCAL VACCINE (4 - PPSV23 if available, else PCV20)] Future Scheduled 2022-09-10 INFLUENZA VACCINE Method [facility] Test 15:06:53 [code = INFLUENZA VACCINE] Future Scheduled 2022-09-10 SHINGLES VACCINES (1 Met [facility] Test 15:06:53 of 2) [code = SHINGLES VACCINES (1 of 2)] Future Scheduled 2022-09-10 BREAST CANCER [facility] Test 15:06:53 SCREENING [code = BREAST CANCER SCREENING] Future Scheduled 2022-09-10 COLONOSCOPY SCREENING [facility] Test 15:06:53 [code = COLONOSCOPY SCREENING] Future Scheduled 2022-09-10 HEPATITIS B VACCINES Met [facility] Test 15:06:53 (1 of 3 - Risk 3-dose series) [code = HEPATITIS B VACCINES (1 of 3 - Risk 3-dose series)] Future Scheduled 2022-09-10 COVID-19 VACCINE (3 - Me [facility] Test 15:06:53 Booster for Pfizer series) [code = COVID-19 VACCINE (3 - Booster for Pfizer series)] Future Scheduled 2022-09-10 65[facility] VACCINE (4 - PPSV23 if available, else PCV20) [code = 65+ PNEUMOCOCCAL VACCINE (4 - PPSV23 if available, else PCV20)] Future Scheduled 2022-09-10 INFLUENZA VACCINE Method [facility] Test 15:06:53 [code = INFLUENZA VACCINE] Future Scheduled 2022-09-10 SHINGLES VACCINES (1 Met [facility] Test 15:06:53 of 2) [code = SHINGLES VACCINES (1 of 2)] Future Scheduled 2022-09-10 BREAST CANCER [facility] Test 15:06:53 SCREENING [code = BREAST CANCER SCREENING] Future Scheduled 2022-09-10 COLONOSCOPY SCREENING [facility] Test 15:06:53 [code = COLONOSCOPY SCREENING] Future Scheduled 2022-09-10 HEPATITIS B VACCINES Met [facility] Test 15:06:53 (1 of 3 - Risk 3-dose series) [code = HEPATITIS B VACCINES (1 of 3 - Risk 3-dose series)] Future Scheduled 2022-09-10 COVID-19 VACCINE (3 - Me [facility] Test 15:06:53 Booster for Pfizer series) [code = COVID-19 VACCINE (3 - Booster for Pfizer series)] Future Scheduled 2022-09-10 65+ [facility] 15:06:53 VACCINE (4 - PPSV23 if available, else PCV20) [code = 65+ PNEUMOCOCCAL VACCINE (4 - PPSV23 if available, else PCV20)] Future Scheduled 2022-09-10 INFLUENZA VACCINE Method [facility] Test 15:06:53 [code = INFLUENZA VACCINE] Future Scheduled 2022-09-10 SHINGLES VACCINES (1 Met [facility] Test 15:06:53 of 2) [code = SHINGLES VACCINES (1 of 2)] Future Scheduled 2022-09-10 BREAST CANCER [facility] Test 15:06:53 SCREENING [code = BREAST CANCER SCREENING] Future Scheduled 2022-09-10 COLONOSCOPY SCREENING [facility] Test 15:06:53 [code = COLONOSCOPY SCREENING] Future Scheduled 2022-09-10 HEPATITIS B VACCINES Met [facility] Test 15:06:53 (1 of 3 - Risk 3-dose series) [code = HEPATITIS B VACCINES (1 of 3 - Risk 3-dose series)] Future Scheduled 2022-09-10 COVID-19 VACCINE (3 - [facility] Test 15:06:53 Booster for Pfizer series) [code = COVID-19 VACCINE (3 - Booster for Pfizer series)] Future Scheduled 2022-09-10 65+ PNEUMOCOCCAL [facility] Test 15:06:53 VACCINE (4 - PPSV23 if available, else PCV20) [code = 65+ PNEUMOCOCCAL VACCINE (4 - PPSV23 if available, else PCV20)] Future Scheduled 2022-09-10 INFLUENZA VACCINE Method [facility] Test 15:06:53 [code = INFLUENZA VACCINE] Future Scheduled 2022-09-10 SHINGLES VACCINES (1 Met [facility] Test 15:06:53 of 2) [code = SHINGLES VACCINES (1 of 2)] Future Scheduled 2022-09-10 BREAST CANCER [facility] Test 15:06:53 SCREENING [code = BREAST CANCER SCREENING] Future Scheduled 2022-09-10 COLONOSCOPY SCREENING [facility] Test 15:06:53 [code = COLONOSCOPY SCREENING] Future Scheduled 2022-09-10 HEPATITIS B VACCINES Met [facility] Test 15:06:53 (1 of 3 - Risk 3-dose series) [code = HEPATITIS B VACCINES (1 of 3 - Risk 3-dose series)] Future Scheduled 2022-09-10 COVID-19 VACCINE (3 - [facility] Test 15:06:53 Booster for Pfizer series) [code = COVID-19 VACCINE (3 - Booster for Pfizer series)] Future Scheduled 2022-09-10 65+ [facility]:06:[facility] VACCINE (4 - PPSV23 if available, else PCV20) [code = 65+ PNEUMOCOCCAL VACCINE (4 - PPSV23 if available, else PCV20)] Future Scheduled 2022-09-10 INFLUENZA VACCINE Method [facility] Test 15:06:53 [code = INFLUENZA VACCINE] Future Scheduled 2022-09-10 SHINGLES VACCINES (1 Met [facility] Test 15:06:53 of 2) [code = SHINGLES VACCINES (1 of 2)] Future Scheduled 2022-09-10 BREAST CANCER [facility] Test 15:06:53 SCREENING [code = BREAST CANCER SCREENING] Future Scheduled 2022-09-10 COLONOSCOPY SCREENING [facility] Test 15:06:53 [code = COLONOSCOPY SCREENING] Future Scheduled 2022-09-10 HEPATITIS B VACCINES Met [facility] Test 15:06:53 (1 of 3 - Risk 3-dose series) [code = HEPATITIS B VACCINES (1 of 3 - Risk 3-dose series)] Future Scheduled 2022-09-10 COVID-19 VACCINE (3 - [facility] Test 15:06:53 Booster for Pfizer series) [code = COVID-19 VACCINE (3 - Booster for Pfizer series)] Future Scheduled 2022-09-10 65+ [facility] 15:06:53 VACCINE (4 - PPSV23 if available, else PCV20) [code = 65+ PNEUMOCOCCAL VACCINE (4 - PPSV23 if available, else PCV20)] Future Scheduled 2022-09-10 INFLUENZA VACCINE Method [facility] Test 15:06:53 [code = INFLUENZA VACCINE] Future Scheduled 2022-09-10 SHINGLES VACCINES (1 Met [facility] Test 15:06:53 of 2) [code = SHINGLES VACCINES (1 of 2)] Future Scheduled 2022-09-10 BREAST CANCER [facility] Test 15:06:53 SCREENING [code = BREAST CANCER SCREENING] Future Scheduled 2022-09-10 COLONOSCOPY SCREENING [facility] Test 15:06:53 [code = COLONOSCOPY SCREENING] Future Scheduled 2022-09-10 HEPATITIS B VACCINES Met [facility] Test 15:06:53 (1 of 3 - Risk 3-dose series) [code = HEPATITIS B VACCINES (1 of 3 - Risk 3-dose series)] Future Scheduled 2022-09-10 COVID-19 VACCINE (3 - [facility] Test 15:06:53 Booster for Pfizer series) [code = COVID-19 VACCINE (3 - Booster for Pfizer series)] Future Scheduled 2022-09-10 65+ [facility] VACCINE (4 - PPSV23 if available, else PCV20) [code = 65+ PNEUMOCOCCAL VACCINE (4 - PPSV23 if available, else PCV20)] Future Scheduled 2022-09-10 INFLUENZA VACCINE Method [facility] Test 15:06:53 [code = INFLUENZA VACCINE] Future Scheduled 2022-08-26 SHINGLES VACCINES (1 Met [facility] Test 14:43:48 of 2) [code = SHINGLES VACCINES (1 of 2)] Future Scheduled 2022-08-26 BREAST CANCER [facility] Test 14:43:48 SCREENING [code = BREAST CANCER SCREENING] Future Scheduled 2022-08-26 COLONOSCOPY SCREENING [facility] Test 14:43:48 [code = COLONOSCOPY SCREENING] Future Scheduled 2022-08-26 HEPATITIS B VACCINES [facility] Test 14:43:48 (1 of 3 - Risk 3-dose series) [code = HEPATITIS B VACCINES (1 of 3 - Risk 3-dose series)] Future Scheduled 2022-08-26 COVID-19 VACCINE (3 - Me [facility] Test 14:43:48 Booster for Pfizer series) [code = COVID-19 VACCINE (3 - Booster for Pfizer series)] Future Scheduled 2022-08-26 65+ [facility] 14:43:48 VACCINE (4 - PPSV23 if available, else PCV20) [code = 65+ PNEUMOCOCCAL VACCINE (4 - PPSV23 if available, else PCV20)] Future Scheduled 2022-08-26 INFLUENZA VACCINE Method [facility] Test 14:43:48 [code = INFLUENZA VACCINE] Future Scheduled 2022-08-07 SHINGLES VACCINES (1 [facility] Test 23:30:11 of 2) [code = SHINGLES VACCINES (1 of 2)] Future Scheduled 2022-08-07 BREAST CANCER [facility] Test 23:30:11 SCREENING [code = BREAST CANCER SCREENING] Future Scheduled 2022-08-07 COLONOSCOPY SCREENING [facility] Test 23:30:11 [code = COLONOSCOPY SCREENING] Future Scheduled 2022-08-07 HEPATITIS B VACCINES [facility] Test 23:30:11 (1 of 3 - Risk 3-dose series) [code = HEPATITIS B VACCINES (1 of 3 - Risk 3-dose series)] Future Scheduled 2022-08-07 COVID-19 VACCINE (3 - Me [facility] Test 23:30:11 Booster for Pfizer series) [code = COVID-19 VACCINE (3 - Booster for Pfizer series)] Future Scheduled 2022-08-07 65+ PNEUMOCOCCAL [facility] Test 23:30:11 VACCINE (4 - PPSV23 if available, else PCV20) [code = 65+ PNEUMOCOCCAL VACCINE (4 - PPSV23 if available, else PCV20)] Future Scheduled 2022-08-07 INFLUENZA VACCINE Method [facility] Test 23:30:11 [code = INFLUENZA VACCINE] Future Scheduled 2022-08-07 SHINGLES VACCINES (1 [facility] Test 23:30:11 of 2) [code = SHINGLES VACCINES (1 of 2)] Future Scheduled 2022-08-07 BREAST CANCER [facility] Test 23:30:11 SCREENING [code = BREAST CANCER SCREENING] Future Scheduled 2022-08-07 COLONOSCOPY SCREENING [facility] Test 23:30:11 [code = COLONOSCOPY SCREENING] Future Scheduled 2022-08-07 HEPATITIS B VACCINES [facility] Test 23:30:11 (1 of 3 - Risk 3-dose series) [code = HEPATITIS B VACCINES (1 of 3 - Risk 3-dose series)] Future Scheduled 2022-08-07 COVID-19 VACCINE (3 - [facility] Test 23:30:11 Booster for Pfizer series) [code = COVID-19 VACCINE (3 - Booster for Pfizer series)] Future Scheduled 2022-08-07 65+ [facility]:30:11 VACCINE (4 - PPSV23 if available, else PCV20) [code = 65+ PNEUMOCOCCAL VACCINE (4 - PPSV23 if available, else PCV20)] Future Scheduled 2022-08-07 INFLUENZA VACCINE Method [facility] Test 23:30:11 [code = INFLUENZA VACCINE] Future Scheduled 2022-08-06 SHINGLES VACCINES (1 [facility] Test 15:48:02 of 2) [code = SHINGLES VACCINES (1 of 2)] Future Scheduled 2022-08-06 BREAST CANCER [facility] Test 15:48:02 SCREENING [code = BREAST CANCER SCREENING] Future Scheduled 2022-08-06 COLONOSCOPY SCREENING Me [facility] Test 15:48:02 [code = COLONOSCOPY SCREENING] Future Scheduled 2022-08-06 HEPATITIS B VACCINES [facility] Test 15:48:02 (1 of 3 - Risk 3-dose series) [code = HEPATITIS B VACCINES (1 of 3 - Risk 3-dose series)] Future Scheduled 2022-08-06 COVID-19 VACCINE (3 - Me [facility] Test 15:48:02 Booster for Pfizer series) [code = COVID-19 VACCINE (3 - Booster for Pfizer series)] Future Scheduled 2022-08-06 65+ [facility] 15:48:02 VACCINE (4 - PPSV23 if available, else PCV20) [code = 65+ PNEUMOCOCCAL VACCINE (4 - PPSV23 if available, else PCV20)] Future Scheduled 2022-08-06 INFLUENZA VACCINE Method [facility] Test 15:48:02 [code = INFLUENZA VACCINE] Future Scheduled 2022-06-11 SHINGLES VACCINES (1 [facility] Test 16:10:12 of 2) [code = SHINGLES VACCINES (1 of 2)] Future Scheduled 2022-06-11 BREAST CANCER [facility] Test 16:10:12 SCREENING [code = BREAST CANCER SCREENING] Future Scheduled 2022-06-11 COLONOSCOPY SCREENING [facility] Test 16:10:12 [code = COLONOSCOPY SCREENING] Future Scheduled 2022-06-11 HEPATITIS B VACCINES [facility] Test 16:10:12 (1 of 3 - Risk 3-dose series) [code = HEPATITIS B VACCINES (1 of 3 - Risk 3-dose series)] Future Scheduled 2022-06-11 COVID-19 VACCINE (3 - Me [facility] Test 16:10:12 Booster for Pfizer series) [...] Future Scheduled 2022-06-11 SHINGLES VACCINES (1 [facility] Test 16:10:12 of 2) [code = SHINGLES VACCINES (1 of 2)] Future Scheduled 2022-06-11 BREAST CANCER [facility] Test 16:10:12 SCREENING [code = BREAST CANCER SCREENING] Future Scheduled 2022-06-11 COLONOSCOPY SCREENING [facility] Test 16:10:12 [code = COLONOSCOPY SCREENING] Future Scheduled 2022-06-11 HEPATITIS B VACCINES [facility] Test 16:10:12 (1 of 3 - Risk 3-dose series) [code = HEPATITIS B VACCINES (1 of 3 - Risk 3-dose series)] Future Scheduled 2022-06-11 COVID-19 VACCINE (3 - Me [facility] Test 16:10:12 Booster for Pfizer series) [code = COVID-19 VACCINE (3 - Booster for Pfizer series)] Future Scheduled 2022-06-11 65+ [facility] 16:10:12 VACCINE (4 - PPSV23 if available, else PCV20) [code = 65+ PNEUMOCOCCAL VACCINE (4 - PPSV23 if available, else PCV20)] Future Scheduled 2022-06-11 INFLUENZA VACCINE Method [facility] Test 16:10:12 [code = INFLUENZA VACCINE] Future Scheduled 2022-06-11 SHINGLES VACCINES (1 [facility] Test 16:10:12 of 2) [code = SHINGLES VACCINES (1 of 2)] Future Scheduled 2022-06-11 BREAST CANCER [facility] Test 16:10:12 SCREENING [code = BREAST CANCER SCREENING] Future Scheduled 2022-06-11 COLONOSCOPY SCREENING [facility] Test 16:10:12 [code = COLONOSCOPY SCREENING] Future Scheduled 2022-06-11 HEPATITIS B VACCINES Met [facility] Test 16:10:12 (1 of 3 - Risk 3-dose series) [code = HEPATITIS B VACCINES (1 of 3 - Risk 3-dose series)] Future Scheduled 2022-06-11 COVID-19 VACCINE (3 - Me [facility] Test 16:10:12 Booster for Pfizer series) [...] Future Scheduled 2022-06-11 SHINGLES VACCINES (1 [facility] Test 16:10:12 of 2) [code = SHINGLES VACCINES (1 of 2)] Future Scheduled 2022-06-11 BREAST CANCER [facility] Test 16:10:12 SCREENING [code = BREAST CANCER SCREENING] Future Scheduled 2022-06-11 COLONOSCOPY SCREENING [facility] Test 16:10:12 [code = COLONOSCOPY SCREENING] Future Scheduled 2022-06-11 HEPATITIS B VACCINES [facility] Test 16:10:12 (1 of 3 - Risk 3-dose series) [code = HEPATITIS B VACCINES (1 of 3 - Risk 3-dose series)] Future Scheduled 2022-06-11 COVID-19 VACCINE (3 - Me [facility] Test 16:10:12 Booster for [...] Future Scheduled 2022-06-11 SHINGLES VACCINES (1 [facility] Test 16:10:12 of 2) [code = SHINGLES VACCINES (1 of 2)] Future Scheduled 2022-06-11 BREAST CANCER [facility] Test 16:10:12 SCREENING [code = BREAST CANCER SCREENING] Future Scheduled 2022-06-11 COLONOSCOPY SCREENING [facility] Test 16:10:12 [code = COLONOSCOPY SCREENING] Future Scheduled 2022-06-11 HEPATITIS B VACCINES [facility] Test 16:10:12 (1 of 3 - Risk 3-dose series) [code = HEPATITIS B VACCINES (1 of 3 - Risk 3-dose series)] Future Scheduled 2022-06-11 COVID-19 VACCINE (3 - Me [facility] Test 16:10:12 Booster for Pfizer series) [code = COVID-19 VACCINE (3 - Booster for Pfizer series)] Future Scheduled 2022-06-11 65+ [facility] 16:10:12 VACCINE (4 - PPSV23 if available, else PCV20) [code = 65+ PNEUMOCOCCAL VACCINE (4 - PPSV23 if available, else PCV20)] Future Scheduled 2022-06-11 INFLUENZA VACCINE Method [facility] Test 16:10:12 [code = INFLUENZA VACCINE] Future Scheduled 2022-06-11 SHINGLES VACCINES (1 Met [facility] Test 16:10:12 of 2) [code = SHINGLES VACCINES (1 of 2)] Future Scheduled 2022-06-11 BREAST CANCER [facility] Test 16:10:12 SCREENING [code = BREAST CANCER SCREENING] Future Scheduled 2022-06-11 COLONOSCOPY SCREENING [facility] Test 16:10:12 [code = COLONOSCOPY SCREENING] Future Scheduled 2022-06-11 HEPATITIS B VACCINES [facility] Test 16:10:12 (1 of 3 - Risk 3-dose series) [code = HEPATITIS B VACCINES (1 of 3 - Risk 3-dose series)] Future Scheduled 2022-06-11 COVID-19 VACCINE (3 - [facility] Test 16:10:12 Booster for Pfizer series) [code = COVID-19 VACCINE (3 - Booster for Pfizer series)] Future Scheduled 2022-06-11 65+ [facility] 16:10:12 VACCINE (4 - PPSV23 if available, else PCV20) [code = 65+ PNEUMOCOCCAL VACCINE (4 - PPSV23 if available, else PCV20)] Future Scheduled 2022-06-11 INFLUENZA VACCINE Method [facility] Test 16:10:12 [code = INFLUENZA VACCINE] Future Scheduled 2022-06-11 SHINGLES VACCINES (1 Met [facility] Test 16:10:12 of 2) [code = SHINGLES VACCINES (1 of 2)] Future Scheduled 2022-06-11 BREAST CANCER [facility] Test 16:10:12 SCREENING [code = BREAST CANCER SCREENING] Future Scheduled 2022-06-11 COLONOSCOPY SCREENING [facility] Test 16:10:12 [code = COLONOSCOPY SCREENING] Future Scheduled 2022-06-11 HEPATITIS B VACCINES [facility] Test 16:10:12 (1 of 3 - Risk 3-dose series) [code = HEPATITIS B VACCINES (1 of 3 - Risk 3-dose series)] Future Scheduled 2022-06-11 COVID-19 VACCINE (3 - Me [facility] Test 16:10:12 Booster for Pfizer series) [...] Future Scheduled 2022-06-11 SHINGLES VACCINES (1 [facility] Test 16:10:12 of 2) [code = SHINGLES VACCINES (1 of 2)] Future Scheduled 2022-06-11 BREAST CANCER [facility] Test 16:10:12 SCREENING [code = BREAST CANCER SCREENING] Future Scheduled 2022-06-11 COLONOSCOPY SCREENING Me [facility] Test 16:10:12 [code = COLONOSCOPY SCREENING] Future Scheduled 2022-06-11 HEPATITIS B VACCINES [facility] Test 16:10:12 (1 of 3 - Risk 3-dose series) [code = HEPATITIS B VACCINES (1 of 3 - Risk 3-dose series)] Future Scheduled 2022-06-11 COVID-19 VACCINE (3 - Me [facility] Test 16:10:12 Booster for Pfizer series) [...] Future Scheduled 2022-06-11 SHINGLES VACCINES (1 [facility] Test 16:10:12 of 2) [code = SHINGLES VACCINES (1 of 2)] Future Scheduled 2022-06-11 BREAST CANCER [facility] Test 16:10:12 SCREENING [code = BREAST CANCER SCREENING] Future Scheduled 2022-06-11 COLONOSCOPY SCREENING Me [facility] Test 16:10:12 [code = COLONOSCOPY SCREENING] Future Scheduled 2022-06-11 HEPATITIS B VACCINES [facility] Test 16:10:12 (1 of 3 - Risk 3-dose series) [code = HEPATITIS B VACCINES (1 of 3 - Risk 3-dose series)] Future Scheduled 2022-06-11 COVID-19 VACCINE (3 - Me [facility] Test 16:10:12 Booster for Pfizer series) [...] Future Scheduled 2022-05-10 SHINGLES VACCINES (1 [facility] Test 10:21:35 of 2) [code = SHINGLES VACCINES (1 of 2)] Future Scheduled 2022-05-10 BREAST CANCER [facility] Test 10:21:35 SCREENING [code = BREAST CANCER SCREENING] Future Scheduled 2022-05-10 COLONOSCOPY SCREENING [facility] Test 10:21:35 [code = COLONOSCOPY SCREENING] Future Scheduled 2022-05-10 HEPATITIS B VACCINES [facility] Test 10:21:35 (1 of 3 - Risk 3-dose series) [code = HEPATITIS B VACCINES (1 of 3 - Risk 3-dose series)] Future Scheduled 2022-05-10 COVID-19 VACCINE (3 - Me [facility] Test 10:21:35 Booster for Pfizer series) [code = COVID-19 VACCINE (3 - Booster for Pfizer series)] Future Scheduled 2022-05-10 65+ [facility] 10:21:35 VACCINE (4 - PPSV23 if available, else PCV20) [code = 65+ PNEUMOCOCCAL VACCINE (4 - PPSV23 if available, else PCV20)] Future Scheduled 2022-05-10 INFLUENZA VACCINE Method [facility] Test 10:21:35 [code = INFLUENZA VACCINE] Future Scheduled 2022-05-10 SHINGLES VACCINES (1 Met [facility] Test 10:21:35 of 2) [code = SHINGLES VACCINES (1 of 2)] Future Scheduled 2022-05-10 BREAST CANCER [facility] Test 10:21:35 SCREENING [code = BREAST CANCER SCREENING] Future Scheduled 2022-05-10 COLONOSCOPY SCREENING [facility] Test 10:21:35 [code = COLONOSCOPY SCREENING] Future Scheduled 2022-05-10 HEPATITIS B VACCINES [facility] Test 10:21:35 (1 of 3 - Risk 3-dose series) [code = HEPATITIS B VACCINES (1 of 3 - Risk 3-dose series)] Future Scheduled 2022-05-10 COVID-19 VACCINE (3 - Me [facility] Test 10:21:35 Booster for Pfizer series) [code = COVID-19 VACCINE (3 - Booster for Pfizer series)] Future Scheduled 2022-05-10 65[facility] 10:21:35 VACCINE (4 - PPSV23 if available, else PCV20) [code = 65+ PNEUMOCOCCAL VACCINE (4 - PPSV23 if available, else PCV20)] Future Scheduled 2022-05-10 INFLUENZA VACCINE Method [facility] Test 10:21:35 [code = INFLUENZA VACCINE] Future Scheduled 2022-05-06 SHINGLES VACCINES (1 [facility] Test 14:03:13 of 2) [code = SHINGLES VACCINES (1 of 2)] Future Scheduled 2022-05-06 BREAST CANCER [facility] Test 14:03:13 SCREENING [code = BREAST CANCER SCREENING] Future Scheduled 2022-05-06 COLONOSCOPY SCREENING [facility] Test 14:03:13 [code = COLONOSCOPY SCREENING] Future Scheduled 2022-05-06 HEPATITIS B VACCINES [facility] Test 14:03:13 (1 of 3 - Risk 3-dose series) [code = HEPATITIS B VACCINES (1 of 3 - Risk 3-dose series)] Future Scheduled 2022-05-06 COVID-19 VACCINE (3 - [facility] Test 14:03:13 Booster for Pfizer series) [code = COVID-19 VACCINE (3 - Booster for Pfizer series)] Future Scheduled 2022-05-06 65+ [facility] 14:03:13 VACCINE (4 - PPSV23 if available, else PCV20) [code = 65+ PNEUMOCOCCAL VACCINE (4 - PPSV23 if available, else PCV20)] Future Scheduled 2022-05-06 INFLUENZA VACCINE Method [facility] Test 14:03:13 [code = INFLUENZA VACCINE] Future Scheduled 2022-04-30 SHINGLES VACCINES (1 [facility] Test 01:07:32 of 2) [code = SHINGLES VACCINES (1 of 2)] Future Scheduled 2022-04-30 BREAST CANCER [facility] Test 01:07:32 SCREENING [code = BREAST CANCER SCREENING] Future Scheduled 2022-04-30 COLONOSCOPY SCREENING [facility] Test 01:07:32 [code = COLONOSCOPY SCREENING] Future Scheduled 2022-04-30 HEPATITIS B VACCINES [facility] Test 01:07:32 (1 of 3 - Risk 3-dose series) [code = HEPATITIS B VACCINES (1 of 3 - Risk 3-dose series)] Future Scheduled 2022-04-30 COVID-19 VACCINE (3 - [facility] Test 01:07:32 Booster for Pfizer series) [code = COVID-19 VACCINE (3 - Booster for Pfizer series)] Future Scheduled 2022-04-30 65+ PNEUMOCOCCAL [facility] Test 01:07:32 VACCINE (4 - PPSV23 if available, else PCV20) [code = 65+ PNEUMOCOCCAL VACCINE (4 - PPSV23 if available, else PCV20)] Future Scheduled 2022-04-30 INFLUENZA VACCINE Method [facility] Test 01:07:32 [code = INFLUENZA VACCINE] Future Scheduled 2022-04-30 SHINGLES VACCINES (1 [facility] Test 01:07:32 of 2) [code = SHINGLES VACCINES (1 of 2)] Future Scheduled 2022-04-30 BREAST CANCER [facility] Test 01:07:32 SCREENING [code = BREAST CANCER SCREENING] Future Scheduled 2022-04-30 COLONOSCOPY SCREENING [facility] Test 01:07:32 [code = COLONOSCOPY SCREENING] Future Scheduled 2022-04-30 HEPATITIS B VACCINES [facility] Test 01:07:32 (1 of 3 - Risk 3-dose series) [code = HEPATITIS B VACCINES (1 of 3 - Risk 3-dose series)] Future Scheduled 2022-04-30 COVID-19 VACCINE (3 - [facility] Test 01:07:32 Booster for Pfizer series) [code = COVID-19 VACCINE (3 - Booster for Pfizer series)] Future Scheduled 2022-04-30 65+ PNEUMOCOCCAL [facility] Test 01:07:32 VACCINE (4 - PPSV23 if available, else PCV20) [code = 65+ PNEUMOCOCCAL VACCINE (4 - PPSV23 if available, else PCV20)] Future Scheduled 2022-04-30 INFLUENZA VACCINE Method [facility] Test 01:07:32 [code = INFLUENZA VACCINE] Future Scheduled 2022-04-30 SHINGLES VACCINES (1 [facility] Test 01:07:32 of 2) [code = SHINGLES VACCINES (1 of 2)] Future Scheduled 2022-04-30 BREAST CANCER [facility] Test 01:07:32 SCREENING [code = BREAST CANCER SCREENING] Future Scheduled 2022-04-30 COLONOSCOPY SCREENING [facility] Test 01:07:32 [code = COLONOSCOPY SCREENING] Future Scheduled 2022-04-30 HEPATITIS B VACCINES [facility] Test 01:07:32 (1 of 3 - Risk 3-dose series) [code = HEPATITIS B VACCINES (1 of 3 - Risk 3-dose series)] Future Scheduled 2022-04-30 COVID-19 VACCINE (3 - [facility] Test 01:07:32 Booster for Pfizer series) [code = COVID-19 VACCINE (3 - Booster for Pfizer series)] Future Scheduled 2022-04-30 65+ [facility] 01:07:32 VACCINE (4 - PPSV23 if available, else PCV20) [code = 65+ PNEUMOCOCCAL VACCINE (4 - PPSV23 if available, else PCV20)] Future Scheduled 2022-04-30 INFLUENZA VACCINE Method [facility] Test 01:07:32 [code = INFLUENZA VACCINE] Future Scheduled 2022-04-25 SHINGLES VACCINES (1 [facility] Test 01:45:02 of 2) [code = SHINGLES VACCINES (1 of 2)] Future Scheduled 2022-04-25 BREAST CANCER [facility] Test 01:45:02 SCREENING [code = BREAST CANCER SCREENING] Future Scheduled 2022-04-25 COLONOSCOPY SCREENING [facility] Test 01:45:02 [code = COLONOSCOPY SCREENING] Future Scheduled 2022-04-25 HEPATITIS B VACCINES [facility] Test 01:45:02 (1 of 3 - Risk 3-dose series) [code = HEPATITIS B VACCINES (1 of 3 - Risk 3-dose series)] Future Scheduled 2022-04-25 COVID-19 VACCINE (3 - [facility] Test 01:45:02 Booster for Pfizer series) [code = COVID-19 VACCINE (3 - Booster for Pfizer series)] Future Scheduled 2022-04-25 65+ [facility] VACCINE (4 - PPSV23 if available, else PCV20) [code = 65+ PNEUMOCOCCAL VACCINE (4 - PPSV23 if available, else PCV20)] Future Scheduled 2022-04-25 INFLUENZA VACCINE Method [facility] Test 01:45:02 [code = INFLUENZA VACCINE] Future Scheduled 2022-03-25 SHINGLES VACCINES (1 [facility] Test 14:48:42 of 2) [code = SHINGLES VACCINES (1 of 2)] Future Scheduled 2022-03-25 BREAST CANCER [facility] Test 14:48:42 SCREENING [code = BREAST CANCER SCREENING] Future Scheduled 2022-03-25 COLONOSCOPY SCREENING [facility] Test 14:48:42 [code = COLONOSCOPY SCREENING] Future Scheduled 2022-03-25 HEPATITIS B VACCINES [facility] Test 14:48:42 (1 of 3 - Risk 3-dose series) [code = HEPATITIS B VACCINES (1 of 3 - Risk 3-dose series)] Future Scheduled 2022-03-25 COVID-19 VACCINE (3 - Me [facility] Test 14:48:42 Booster for Pfizer series) [code = COVID-19 VACCINE (3 - Booster for Pfizer series)] Future Scheduled 2022-03-25 65+ [facility] 14:48:[facility] VACCINE (4 - PPSV23 if available, else PCV20) [code = 65+ PNEUMOCOCCAL VACCINE (4 - PPSV23 if available, else PCV20)] Future Scheduled 2022-03-25 INFLUENZA VACCINE Method [facility] Test 14:48:42 [code = INFLUENZA VACCINE] Future Scheduled 2022-03-25 SHINGLES VACCINES (1 [facility] Test 14:48:42 of 2) [code = SHINGLES VACCINES (1 of 2)] Future Scheduled 2022-03-25 BREAST CANCER [facility] Test 14:48:42 SCREENING [code = BREAST CANCER SCREENING] Future Scheduled 2022-03-25 COLONOSCOPY SCREENING [facility] Test 14:48:42 [code = COLONOSCOPY SCREENING] Future Scheduled 2022-03-25 HEPATITIS B VACCINES [facility] Test 14:48:42 (1 of 3 - Risk 3-dose series) [code = HEPATITIS B VACCINES (1 of 3 - Risk 3-dose series)] Future Scheduled 2022-03-25 COVID-19 VACCINE (3 - Me [facility] Test 14:48:42 Booster for Pfizer series) [code = COVID-19 VACCINE (3 - Booster for Pfizer series)] Future Scheduled 2022-03-25 65+ [facility] 14:48:42 VACCINE (4 - PPSV23 if available, else PCV20) [code = 65+ PNEUMOCOCCAL VACCINE (4 - PPSV23 if available, else PCV20)] Future Scheduled 2022-03-25 INFLUENZA VACCINE Method [facility] Test 14:48:42 [code = INFLUENZA VACCINE] Future Scheduled 2022-03-25 SHINGLES VACCINES (1 [facility] Test 14:48:42 of 2) [code = SHINGLES VACCINES (1 of 2)] Future Scheduled 2022-03-25 BREAST CANCER [facility] Test 14:48:42 SCREENING [code = BREAST CANCER SCREENING] Future Scheduled 2022-03-25 COLONOSCOPY SCREENING [facility] Test 14:48:42 [code = COLONOSCOPY SCREENING] Future Scheduled 2022-03-25 HEPATITIS B VACCINES [facility] Test 14:48:42 (1 of 3 - Risk 3-dose series) [code = HEPATITIS B VACCINES (1 of 3 - Risk 3-dose series)] Future Scheduled 2022-03-25 COVID-19 VACCINE (3 - [facility] Test 14:48:42 Booster for Pfizer series) [...] Future Scheduled 2022-03-25 SHINGLES VACCINES (1 [facility] Test 14:48:42 of 2) [code = SHINGLES VACCINES (1 of 2)] Future Scheduled 2022-03-25 BREAST CANCER [facility] Test 14:48:42 SCREENING [code = BREAST CANCER SCREENING] Future Scheduled 2022-03-25 COLONOSCOPY SCREENING Me [facility] Test 14:48:42 [code = COLONOSCOPY SCREENING] Future Scheduled 2022-03-25 HEPATITIS B VACCINES Met [facility] Test 14:48:42 (1 of 3 - Risk 3-dose series) [code = HEPATITIS B VACCINES (1 of 3 - Risk 3-dose series)] Future Scheduled 2022-03-25 COVID-19 VACCINE (3 - Me [facility] Test 14:48:42 Booster for Pfizer series) [...] Future Scheduled 2022-03-25 SHINGLES VACCINES (1 Met [facility] Test 14:48:42 of 2) [code = SHINGLES VACCINES (1 of 2)] Future Scheduled 2022-03-25 BREAST CANCER [facility] Test 14:48:42 SCREENING [code = BREAST CANCER SCREENING] Future Scheduled 2022-03-25 COLONOSCOPY SCREENING [facility] Test 14:48:42 [code = COLONOSCOPY SCREENING] Future Scheduled 2022-03-25 HEPATITIS B VACCINES Met [facility] Test 14:48:42 (1 of 3 - Risk 3-dose series) [code = HEPATITIS B VACCINES (1 of 3 - Risk 3-dose series)] Future Scheduled 2022-03-25 COVID-19 VACCINE (3 - Me [facility] Test 14:48:42 Booster for Pfizer series) [...] Future Scheduled 2022-03-25 SHINGLES VACCINES (1 Met [facility] Test 14:48:42 of 2) [code = SHINGLES VACCINES (1 of 2)] Future Scheduled 2022-03-25 BREAST CANCER [facility] Test 14:48:42 SCREENING [code = BREAST CANCER SCREENING] Future Scheduled 2022-03-25 COLONOSCOPY SCREENING [facility] Test 14:48:42 [code = COLONOSCOPY SCREENING] Future Scheduled 2022-03-25 HEPATITIS B VACCINES Met [facility] Test 14:48:42 (1 of 3 - Risk 3-dose series) [code = HEPATITIS B VACCINES (1 of 3 - Risk 3-dose series)] Future Scheduled 2022-03-25 COVID-19 VACCINE (3 - [facility] Test 14:48:42 Booster for Pfizer series) [code = COVID-19 VACCINE (3 - Booster for Pfizer series)] Future Scheduled 2022-03-25 65+ [facility] Test 14:48:42 VACCINE (4 - PPSV23 if available, else PCV20) [code = 65+ PNEUMOCOCCAL VACCINE (4 - PPSV23 if available, else PCV20)] Future Scheduled 2022-03-25 INFLUENZA VACCINE Method [facility] Test 14:48:42 [code = INFLUENZA VACCINE] Future Scheduled 2022-03-25 SHINGLES VACCINES (1 Met [facility] Test 14:48:42 of 2) [code = SHINGLES VACCINES (1 of 2)] Future Scheduled 2022-03-25 BREAST CANCER [facility] Test 14:48:42 SCREENING [code = BREAST CANCER SCREENING] Future Scheduled 2022-03-25 COLONOSCOPY SCREENING [facility] Test 14:48:42 [code = COLONOSCOPY SCREENING] Future Scheduled 2022-03-25 HEPATITIS B VACCINES Met [facility] Test 14:48:42 (1 of 3 - Risk 3-dose series) [code = HEPATITIS B VACCINES (1 of 3 - Risk 3-dose series)] Future Scheduled 2022-03-25 COVID-19 VACCINE (3 - [facility] Test 14:48:42 Booster for Pfizer series) [...] Future Scheduled 2022-03-25 SHINGLES VACCINES (1 Met [facility] Test 14:48:42 of 2) [code = SHINGLES VACCINES (1 of 2)] Future Scheduled 2022-03-25 BREAST CANCER [facility] Test 14:48:42 SCREENING [code = BREAST CANCER SCREENING] Future Scheduled 2022-03-25 COLONOSCOPY SCREENING [facility] Test 14:48:42 [code = COLONOSCOPY SCREENING] Future Scheduled 2022-03-25 HEPATITIS B VACCINES Met [facility] Test 14:48:42 (1 of 3 - Risk 3-dose series) [code = HEPATITIS B VACCINES (1 of 3 - Risk 3-dose series)] Future Scheduled 2022-03-25 COVID-19 VACCINE (3 - Me [facility] Test 14:48:42 Booster for [...] Future Scheduled 2022-03-25 SHINGLES VACCINES (1 Met [facility] Test 14:48:42 of 2) [code = SHINGLES VACCINES (1 of 2)] Future Scheduled 2022-03-25 BREAST CANCER [facility] Test 14:48:42 SCREENING [code = BREAST CANCER SCREENING] Future Scheduled 2022-03-25 COLONOSCOPY SCREENING [facility] Test 14:48:42 [code = COLONOSCOPY SCREENING] Future Scheduled 2022-03-25 HEPATITIS B VACCINES Met [facility] Test 14:48:42 (1 of 3 - Risk 3-dose series) [code = HEPATITIS B VACCINES (1 of 3 - Risk 3-dose series)] Future Scheduled 2022-03-25 COVID-19 VACCINE (3 - Me [facility] Test 14:48:42 Booster for Pfizer series) [code = COVID-19 VACCINE (3 - Booster for Pfizer series)] Future Scheduled 2022-03-25 65+ [facility] Test 14:48:42 VACCINE (4 - PPSV23 if available, else PCV20) [code = 65+ PNEUMOCOCCAL VACCINE (4 - PPSV23 if available, else PCV20)] Future Scheduled 2022-03-25 INFLUENZA VACCINE Method [facility] Test 14:48:42 [code = INFLUENZA VACCINE] Future Scheduled 2022-03-04 SHINGLES VACCINES (1 Met [facility] Test 14:03:57 of 2) [code = SHINGLES VACCINES (1 of 2)] Future Scheduled 2022-03-04 BREAST CANCER [facility] Test 14:03:57 SCREENING [code = BREAST CANCER SCREENING] Future Scheduled 2022-03-04 COLONOSCOPY SCREENING [facility] Test 14:03:57 [code = COLONOSCOPY SCREENING] Future Scheduled 2022-03-04 HEPATITIS B VACCINES Met [facility] Test 14:03:57 (1 of 3 - Risk 3-dose series) [code = HEPATITIS B VACCINES (1 of 3 - Risk 3-dose series)] Future Scheduled 2022-03-04 COVID-19 VACCINE (3 - [facility] Test 14:03:57 Booster for Pfizer series) [code = COVID-19 VACCINE (3 - Booster for Pfizer series)] Future Scheduled 2022-03-04 65+ [facility] Test 14:03:57 VACCINE (4 - PPSV23 if available, else PCV20) [code = 65+ PNEUMOCOCCAL VACCINE (4 - PPSV23 if available, else PCV20)] Future Scheduled 2022-03-04 INFLUENZA VACCINE Method [facility] Test 14:03:57 [code = INFLUENZA VACCINE] Future Scheduled 2022-03-04 SHINGLES VACCINES (1 Met [facility] Test 14:03:57 of 2) [code = SHINGLES VACCINES (1 of 2)] Future Scheduled 2022-03-04 BREAST CANCER [facility] Test 14:03:57 SCREENING [code = BREAST CANCER SCREENING] Future Scheduled 2022-03-04 COLONOSCOPY SCREENING [facility] Test 14:03:57 [code = COLONOSCOPY SCREENING] Future Scheduled 2022-03-04 HEPATITIS B VACCINES Met [facility] Test 14:03:57 (1 of 3 - Risk 3-dose series) [code = HEPATITIS B VACCINES (1 of 3 - Risk 3-dose series)] Future Scheduled 2022-03-04 COVID-19 VACCINE (3 - Me [facility] Test 14:03:57 Booster for Pfizer series) [code = COVID-19 VACCINE (3 - Booster for Pfizer series)] Future Scheduled 2022-03-04 65+ [facility] Test 14:03:57 VACCINE (4 - PPSV23 if available, else PCV20) [code = 65+ PNEUMOCOCCAL VACCINE (4 - PPSV23 if available, else PCV20)] Future Scheduled 2022-03-04 INFLUENZA VACCINE Method [facility] Test 14:03:57 [code = INFLUENZA VACCINE] Future Scheduled 2022-03-04 SHINGLES VACCINES (1 Met [facility] Test 14:03:57 of 2) [code = SHINGLES VACCINES (1 of 2)] Future Scheduled 2022-03-04 BREAST CANCER [facility] Test 14:03:57 SCREENING [code = BREAST CANCER SCREENING] Future Scheduled 2022-03-04 COLONOSCOPY SCREENING [facility] Test 14:03:57 [code = COLONOSCOPY SCREENING] Future Scheduled 2022-03-04 HEPATITIS B VACCINES Met [facility] Test 14:03:57 (1 of 3 - Risk 3-dose series) [code = HEPATITIS B VACCINES (1 of 3 - Risk 3-dose series)] Future Scheduled 2022-03-04 COVID-19 VACCINE (3 - [facility] Test 14:03:57 Booster for Pfizer series) [code = COVID-19 VACCINE (3 - Booster for Pfizer series)] Future Scheduled 2022-03-04 65+ [facility] Test 14:03:57 VACCINE (4 - PPSV23 if available, else PCV20) [code = 65+ PNEUMOCOCCAL VACCINE (4 - PPSV23 if available, else PCV20)] Future Scheduled 2022-03-04 INFLUENZA VACCINE Method [facility] Test 14:03:57 [code = INFLUENZA VACCINE] Future Scheduled 2022-03-04 SHINGLES VACCINES (1 Met [facility] Test 14:03:57 of 2) [code = SHINGLES VACCINES (1 of 2)] Future Scheduled 2022-03-04 BREAST CANCER [facility] Test 14:03:57 SCREENING [code = BREAST CANCER SCREENING] Future Scheduled 2022-03-04 COLONOSCOPY SCREENING [facility] Test 14:03:57 [code = COLONOSCOPY SCREENING] Future Scheduled 2022-03-04 HEPATITIS B VACCINES Met [facility] Test 14:03:57 (1 of 3 - Risk 3-dose series) [code = HEPATITIS B VACCINES (1 of 3 - Risk 3-dose series)] Future Scheduled 2022-03-04 COVID-19 VACCINE (3 - Me [facility] Test 14:03:57 Booster for Pfizer series) [code = COVID-19 VACCINE (3 - Booster for Pfizer series)] Future Scheduled 2022-03-04 65+ [facility] Test 14:03:57 VACCINE (4 - PPSV23 if available, else PCV20) [code = 65+ PNEUMOCOCCAL VACCINE (4 - PPSV23 if available, else PCV20)] Future Scheduled 2022-03-04 INFLUENZA VACCINE Method [facility] Test 14:03:57 [code = INFLUENZA VACCINE] Future Scheduled 2022-02-11 SHINGLES VACCINES (1 Met [facility] Test 13:39:12 of 2) [code = SHINGLES VACCINES (1 of 2)] Future Scheduled 2022-02-11 BREAST CANCER [facility] Test 13:39:12 SCREENING [code = BREAST CANCER SCREENING] Future Scheduled 2022-02-11 COLONOSCOPY SCREENING [facility] Test 13:39:12 [code = COLONOSCOPY SCREENING] Future Scheduled 2022-02-11 HEPATITIS B VACCINES Met [facility] Test 13:39:12 (1 of 3 - Risk 3-dose series) [code = HEPATITIS B VACCINES (1 of 3 - Risk 3-dose series)] Future Scheduled 2022-02-11 COVID-19 VACCINE (3 - [facility] Test 13:39:12 Booster for Pfizer series) [code = COVID-19 VACCINE (3 - Booster for Pfizer series)] Future Scheduled 2022-02-11 65+ [facility] Test 13:39:12 VACCINE (4 - PPSV23 or PCV20) [code = 65+ PNEUMOCOCCAL VACCINE (4 - PPSV23 or PCV20)] Future Scheduled 2022-02-11 INFLUENZA VACCINE Method [facility] Test 13:39:12 [code = INFLUENZA VACCINE] Future Scheduled 2022-01-29 SHINGLES VACCINES (1 Met [facility] Test 14:07:20 of 2) [code = SHINGLES VACCINES (1 of 2)] Future Scheduled 2022-01-29 BREAST CANCER [facility] Test 14:07:20 SCREENING [code = BREAST CANCER SCREENING] Future Scheduled 2022-01-29 COLONOSCOPY SCREENING [facility] Test 14:07:20 [code = COLONOSCOPY SCREENING] Future Scheduled 2022-01-29 HEPATITIS B VACCINES Met [facility] Test 14:07:20 (1 of 3 - Risk 3-dose series) [code = HEPATITIS B VACCINES (1 of 3 - Risk 3-dose series)] Future Scheduled 2022-01-29 COVID-19 VACCINE (3 - Me [facility] Test 14:07:20 Booster for Pfizer series) [code = COVID-19 VACCINE (3 - Booster for Pfizer series)] Future Scheduled 2022-01-29 65+ PNEUMOCOCCAL [facility] Test 14:07:20 VACCINE (4 - PPSV23 or PCV20) [code = 65+ PNEUMOCOCCAL VACCINE (4 - PPSV23 or PCV20)] Future Scheduled 2022-01-29 INFLUENZA VACCINE Method [facility] Test 14:07:20 [code = INFLUENZA VACCINE] Future Scheduled 2022-01-29 SHINGLES VACCINES (1 Met [facility] Test 14:07:20 of 2) [code = SHINGLES VACCINES (1 of 2)] Future Scheduled 2022-01-29 BREAST CANCER [facility] Test 14:07:20 SCREENING [code = BREAST CANCER SCREENING] Future Scheduled 2022-01-29 COLONOSCOPY SCREENING [facility] Test 14:07:20 [code = COLONOSCOPY SCREENING] Future Scheduled 2022-01-29 HEPATITIS B VACCINES Met [facility] Test 14:07:20 (1 of 3 - Risk 3-dose series) [code = HEPATITIS B VACCINES (1 of 3 - Risk 3-dose series)] Future Scheduled 2022-01-29 COVID-19 VACCINE (3 - [facility] Test 14:07:20 Booster for Pfizer series) [code = COVID-19 VACCINE (3 - Booster for Pfizer series)] Future Scheduled 2022-01-29 65+ [facility] Test 14:07:20 VACCINE (4 - PPSV23 or PCV20) [code = 65+ PNEUMOCOCCAL VACCINE (4 - PPSV23 or PCV20)] Future Scheduled 2022-01-29 INFLUENZA VACCINE Method [facility] Test 14:07:20 [code = INFLUENZA VACCINE] Future Scheduled 2022-01-29 SHINGLES VACCINES (1 Met [facility] Test 14:07:20 of 2) [code = SHINGLES VACCINES (1 of 2)] Future Scheduled 2022-01-29 BREAST CANCER [facility] Test 14:07:20 SCREENING [code = BREAST CANCER SCREENING] Future Scheduled 2022-01-29 COLONOSCOPY SCREENING [facility] Test 14:07:20 [code = COLONOSCOPY SCREENING] Future Scheduled 2022-01-29 HEPATITIS B VACCINES Met [facility] Test 14:07:20 (1 of 3 - Risk 3-dose series) [code = HEPATITIS B VACCINES (1 of 3 - Risk 3-dose series)] Future Scheduled 2022-01-29 COVID-19 VACCINE (3 - [facility] Test 14:07:20 Booster for Pfizer series) [code = COVID-19 VACCINE (3 - Booster for Pfizer series)] Future Scheduled 2022-01-29 65+ PNEUMOCOCCAL [facility] Test 14:07:20 VACCINE (4 - PPSV23 or PCV20) [code = 65+ PNEUMOCOCCAL VACCINE (4 - PPSV23 or PCV20)] Future Scheduled 2022-01-29 INFLUENZA VACCINE Method [facility] Test 14:07:20 [code = INFLUENZA VACCINE] Future Scheduled 2022-01-29 SHINGLES VACCINES (1 Met [facility] Test 14:07:20 of 2) [code = SHINGLES VACCINES (1 of 2)] Future Scheduled 2022-01-29 BREAST CANCER [facility] Test 14:07:20 SCREENING [code = BREAST CANCER SCREENING] Future Scheduled 2022-01-29 COLONOSCOPY SCREENING [facility] Test 14:07:20 [code = COLONOSCOPY SCREENING] Future Scheduled 2022-01-29 HEPATITIS B VACCINES Met [facility] Test 14:07:20 (1 of 3 - Risk 3-dose series) [code = HEPATITIS B VACCINES (1 of 3 - Risk 3-dose series)] Future Scheduled 2022-01-29 COVID-19 VACCINE (3 - [facility] Test 14:07:20 Booster for Pfizer series) [code = COVID-19 VACCINE (3 - Booster for Pfizer series)] Future Scheduled 2022-01-29 65+ PNEUMOCOCCAL [facility] Test 14:07:20 VACCINE (4 - PPSV23 or PCV20) [code = 65+ PNEUMOCOCCAL VACCINE (4 - PPSV23 or PCV20)] Future Scheduled 2022-01-29 INFLUENZA VACCINE Method [facility] Test 14:07:20 [code = INFLUENZA VACCINE] Future Scheduled 2022-01-20 SHINGLES VACCINES (1 Met [facility] Test 06:12:34 of 2) [code = SHINGLES VACCINES (1 of 2)] Future Scheduled 2022-01-20 Screening for [facility] Test 06:12:34 malignant neoplasm of cervix (procedure) [code = [id number]] Future Scheduled 2022-01-20 BREAST CANCER [facility] Test 06:12:34 SCREENING [code = BREAST CANCER SCREENING] Future Scheduled 2022-01-20 COLONOSCOPY SCREENING [facility] Test 06:12:34 [code = COLONOSCOPY SCREENING] Future Scheduled 2022-01-20 HEPATITIS B VACCINES Met [facility] Test 06:12:34 (1 of 3 - Risk 3-dose series) [code = HEPATITIS B VACCINES (1 of 3 - Risk 3-dose series)] Future Scheduled 2022-01-20 COVID-19 VACCINE (3 - [facility] Test 06:12:34 Booster for Pfizer series) [code = COVID-19 VACCINE (3 - Booster for Pfizer series)] Future Scheduled 2022-01-20 65+ [facility] Test 06:12:34 VACCINE (4 - PPSV23 or PCV20) [code = 65+ PNEUMOCOCCAL VACCINE (4 - PPSV23 or PCV20)] Future Scheduled 2022-01-20 INFLUENZA VACCINE Method [facility] Test 06:12:34 [code = INFLUENZA VACCINE] Future Scheduled 2022-01-16 SHINGLES VACCINES (1 Met [facility] Test 12:09:25 of 2) [code = SHINGLES VACCINES (1 of 2)] Future Scheduled 2022-01-16 Screening for [facility] Test 12:09:25 malignant neoplasm of cervix (procedure) [code = [id number]] Future Scheduled 2022-01-16 BREAST CANCER [facility] Test 12:09:25 SCREENING [code = BREAST CANCER SCREENING] Future Scheduled 2022-01-16 COLONOSCOPY SCREENING [facility] Test 12:09:25 [code = COLONOSCOPY SCREENING] Future Scheduled 2022-01-16 HEPATITIS B VACCINES Met [facility] Test 12:09:25 (1 of 3 - Risk 3-dose series) [code = HEPATITIS B VACCINES (1 of 3 - Risk 3-dose series)] Future Scheduled 2022-01-16 COVID-19 VACCINE (3 - [facility] Test 12:09:25 Booster for Pfizer series) [code = COVID-19 VACCINE (3 - Booster for Pfizer series)] Future Scheduled 2022-01-16 65+ PNEUMOCOCCAL [facility] Test 12:09:25 VACCINE (4 - PPSV23 or PCV20) [code = 65+ PNEUMOCOCCAL VACCINE (4 - PPSV23 or PCV20)] Future Scheduled 2022-01-16 INFLUENZA VACCINE Method [facility] Test 12:09:25 [code = INFLUENZA VACCINE] Future Scheduled 2022-01-14 SHINGLES VACCINES (1 Met [facility] Test 04:11:46 of 2) [code = SHINGLES VACCINES (1 of 2)] Future Scheduled 2022-01-14 Screening for [facility] Test 04:11:46 malignant neoplasm of cervix (procedure) [code = [id number]] Future Scheduled 2022-01-14 BREAST CANCER [facility] Test 04:11:46 SCREENING [code = BREAST CANCER SCREENING] Future Scheduled 2022-01-14 COLONOSCOPY SCREENING [facility] Test 04:11:46 [code = COLONOSCOPY SCREENING] Future Scheduled 2022-01-14 HEPATITIS B VACCINES Met [facility] Test 04:11:46 (1 of 3 - Risk 3-dose series) [code = HEPATITIS B VACCINES (1 of 3 - Risk 3-dose series)] Future Scheduled 2022-01-14 COVID-19 VACCINE (3 - [facility] Test 04:11:46 Booster for Pfizer series) [code = COVID-19 VACCINE (3 - Booster for Pfizer series)] Future Scheduled 2022-01-14 65+ PNEUMOCOCCAL [facility] Test 04:11:46 VACCINE (4 - PPSV23 or PCV20) [code = 65+ PNEUMOCOCCAL VACCINE (4 - PPSV23 or PCV20)] Future Scheduled 2022-01-14 INFLUENZA VACCINE Method [facility] Test 04:11:46 [code = INFLUENZA VACCINE] Future Scheduled 2021-08-26 Screening for [facility] Test 13:02:23 malignant neoplasm of cervix (procedure) [code = [id number]] Future Scheduled 2021-08-26 BREAST CANCER [facility] Test 13:02:23 SCREENING [code = BREAST CANCER SCREENING] Future Scheduled 2021-08-26 COLONOSCOPY SCREENING [facility] Test 13:02:23 [code = COLONOSCOPY SCREENING] Future Scheduled 2021-08-26 Screening for [facility] Test 13:02:23 malignant neoplasm of lung (procedure) [code = [id number]] Future Scheduled 2021-08-26 SHINGLES VACCINES (#1) M [facility] Test 13:02:23 [code = SHINGLES VACCINES (#1)] Future Scheduled 2021-08-26 COVID-19 VACCINE (3 - [facility] Test 13:02:23 Pfizer risk 4-dose series) [...] Facility Department ID 2022-02-18 Outpatient [facility] W [id number] [place] 14:30:[address] [place] [address] 2021-07-14 Outpatient SADIKOVIC, [facility] [id number] [place] 09:33:51 [facility] 2021-06-02 Outpatient HEMATPOUR, [facility] [id number] [place] 13:58:59 [facility] 2021-04-28 Outpatient HEMATPOUR, [facility] [id number] [place] 11:21:22 [facility] 2021-03-20 Emergency [facility] [id number] [facility] H[facility], [facility] [id number] [place] 08:16:46 [facility] 2020-10-31 Outpatient HEMATPOUR, [facility] [id number] [place] 09:44:50 [facility] 2020-09-30 Outpatient HEMATPOUR, [facility] [id number] [place] 13:16:03 [facility] 2023-02-07 2023-02-07 Outpatient R [facility], [facility] [id number] Univers 09:00:00 09:00:00 SANTIAGO barbosa [facility] 2023-01-27 2023-01-27 Emergency X Bill COLES [facility] ERT [id number] Univers 10:47:00 18:59:00 ity [facility] 2023-01-27 2023-01-27 Emergency Bill Coles [facility] [id number] Univers 10:47:00 18:59:00 Kiersten BULLOCK [id number] i [id number] [id number] [address] 2023-01-17 2023-01-17 Refill [facility], [facility] [id number] Univers 00:00:00 00:00:00 [facility] [id number] [id number] [id number] [address] 2022-11-26 2022-11-26 Outpatient R [facility] [id number] Univers 08:30:00 [facility]22-[facility]-15 2022-11-15 Outpatient R [facility] [id number] Univers 08:30:00 08:30:00 [facility] 2022-11-02 2022-11-02 Outpatient R [facility] [id number] Univers 08:30:00 08:30:00 SANTIAGO [facility] 2022-10-27 2022-10-27 Telephone [facility] [id number] Univers 00:00:00 00:00:00 [facility] [id number] [id number] [id number] [address] 2022-10-06 2022-10-06 Outpatient R [facility] [id number] Univers 09:30:00 09:30:00 SANTIAGO [facility] 2022-09-26 [facility]22[id number] Univers 00:00:00 00:00:00 [facility] [id number] [id number] [id number] 880629 [place] 2022-09-03 2022-09-03 Outpatient R [facility] [id number] Univers 11:00:00 11:00:00 SANTIAGO [facility] 2022-08-24 2022-08-24 Refill [facility], [id number] Univers 00:00:00 00:00:00 [place] [id number] ity of 3.104.2.7 [id number] Med[place] [facility] .[place] 2022-05-20 2022-05-20 Telephone [facility] [id number] Univers 00:00:00 00:00:00 [facility] [id number] [id number] [id number] [address] 2022-05-10 2022-05-10 Emergency X BYRON [facility] ERT [id number] Univers 10:30:00 16:31:00 HOME [facility] 2022-05-10 2022-05-10 Emergency [place], TRAU[place] [id number] Univers 10:30:00 16:31:00 Home B CENTER [id number] [id number] [id number] [facility] 014 [place] 2022-05-10 2022-05-10 [facility]phone [facility] [id number] Univers 00:00:00 00:00:00 [facility] [id number] [id number] [id number] [address] 2022-05-08 2022-05-08 Emergency X VICK [facility] ERT [id number] Univers 16:18:00 18:42:00 THERESA [facility] 2022-05-08 2022-05-08 [facility] 1.2.840.114 [id number] Univers 16:18:00 18:42:00 Theresa BULLOCK [id number] [place] 4.2.7.2.686 [facility] [id number] [address] 2022-05-07 2022-05-07 Telephone [facility] 1.2.840.114 [id number] Univers 00:00:00 00:00:00 [facility] [id number] i [place] [id number] [address] 2022-05-06 2022-05-06 Emergency X [facility] ERT [id number] 02 Univers 14:13:00 18:19:00 ANETTE [facility] 2022-05-06 2022-05-06 Emergency [facility] 1.2.954.074 [id number] Univers 14:13:00 18:19:00 HesperusJimi BULLOCK 350.1.13.10 ity of [place] 4.2.7.2.686 [facility] [id number] [address] 2022-05-06 2022-05-06 Telephone [facility] 1.2.840.114 99 [id number] Univers 00:00:00 00:00:00 [facility] 350.1.13.10 i ty of [place] [id number] [address] 2022-04-22 2022-04-22 Emergency [facility] [id number] Univers 13:55:00 17:00:00 PAULETTE [facility] 2022-04-22 2022-04-22 Emergency [facility] 1.2.321.618 [id number] 7878 Univers 13:55:00 17:00:00 Paulette BULLOCK 350.1.13.10 i ty of [place] 4.2.7.2.686 [facility] [id number] [address] 2022-04-07 2022-04-07 Outpatient R UNKNOWN, [facility] [id number] Univers 20:40:00 20:40:00 ATTENDING ity [facility] 2022-04-07 2022-04-07 Telephone Devin, 1.2.840.5 [id number] [id number] Univers 00:00:00 00:00:00 Robbi Marika 41205.1.1 i ty of 3.104.2.7 [place] .3.257192 Medica l .8 [place] 2022-03-05 2022-03-05 Fly Finisher Santiago Cardenas 1.2.840.1 [id number] Univers 13:45:00 14:00:00 Visit [facility] 52709.1.1 ity of 3.104.2.7 [place] .3.339709 Medica l .8 [place] 2022-03-05 2022-03-05 Office JOSÉ ANTONIO Cardenas 1.2.544.514 5582 8469 Univers 13:00:00 13:30:00 Visit Santiago [facility] 350.1.13.10 i ty of CLINICS 4.2.7.2.686 [place] [phone] [facility] porfirio 089 [place] 2022-03-05 2022-03-05 Outpatient R [facility] [id number] Univers 13:00:00 13:00:00 [facility] 2022-02-26 2022-02-26 Outpatient R [facility] [id number] Univers 08:30:00 08:30:00 [facility] 2022-02-26 2022-02-26 Outpatient R [facility] [id number] Univers 08:30:00 08:30:00 [facility] 2022-02-17 2022-02-17 Transition Stevo, 1.2.840.5 [id number] Univers 00:00:00 00:00:00 of Care Isaias Arredondo 55908.1.1 it y of 3.104.2.7 [place] .3.503862 Medica l .8 [place] 2022-02-10 2022-02-16 Inpatient [facility] [id number] Univers 22:59:00 19:27:00 PETER ity of [facility] 2022-02-10 2022-02-16 Hospital Reilly Means 1.2.840.1 [id number] [facility] 22:59:00 19:27:00 Encounter Ofe Shields 96810.1.1 ity of [place] 3.[place].2.7 [place] .3.266446 Medica l .8 [place] 2022-02-11 2022-02-11 Telephone East, 1.2.840.5 [id number] [id number] Univers 00:00:00 00:00:00 Santiago 14017.1.1 ity of 3.104.2.7 [place] .3.546391 Medica l .8 [place] 2022-02-10 2022-02-10 Travel 1.2.840.1 1.2.103.667 1800 [id number] Univers 00:00:00 00:00:00 50721.1.1 350.1.13.10 ity of 3.104.2.7 4.2.7.3.698 [place] .3.069068 084.8 Medica l .8 [place] 2022-01-30 2022-01-30 Telephone East, 1.2.840.4 [id number] [id number] Univers 00:00:00 00:00:00 Santiago 10305.1.1 ity of 3.104.2.7 [place] .3.168351 Medica l .8 [place] 2022-01-06 2022-01-06 Orders Doctor FERMIN 1.2.840.114 [id number] Univers 00:00:00 00:00:00 Only Unassigned, JACKELINE 350.1.13.10 ity of [place] [facility] 4.2.7.2.686 Yomi as [id number] [facility] porfirio 009 Branch 2021-12-25 2021-12-25 Orders Doctor FERMIN 1.2.840.114 [id number] Univers 00:00:00 00:00:00 Only Unassigned, JACKELINE 350.1.13.10 ity of [place] [facility] 4.2.7.2.686 Yomi as [phone] Medi porfirio 009 Branch 2021-12-12 2021-12-13 Emergency X Bill COLES [facility] ERT [id number] Univers 23:53:00 01:52:00 ity [facility] 2021-12-12 2021-12-13 Emergency Bill Coles [facility] 1.2.840.114 [id number] Univers 23:53:00 01:52:00 Kiersten [facility] 350.1.13.10 i ty of [facility] [place] [id number] [facility] 084 [place] 2021-11-20 2021-11-20 Fly Finisher [facility] UNIVERSIT 1.2.840.114 9 [id number] Univers 09:45:00 10:00:00 Visit [facility] 350.1.13.10 ity of [facility] 4.2.7.2.[place] [phone] [facility] 316 [place] 2021-11-20 2021-11-20 Office [facility] 1.2.160.158 3218 9084 Univers 08:30:00 09:00:00 Visit [facility] 350.1.13.10 i ty of [facility] 4.2.7.2.[place] [id number] [facility] 089 [place] 2021-11-20 2021-11-20 Outpatient R [facility] [id number] Univers 08:30:00 08:30:00 [facility] 2021-11-20 2021-11-20 Outpatient R [facility] [id number] Univers 08:30:00 08:30:00 [facility] 2021-11-20 2021-11-20 Outpatient R [facility] [id number] Univers 08:30:00 08:30:00 [facility] 2021-11-20 2021-11-20 Outpatient R [facility] [id number] Univers 08:30:00 08:30:00 [facility] 2021-10-24 2021-10-24 Emergency X WALKER [facility] ERT [id number] Univers 16:27:00 22:26:00 WAKILI [facility] 2021-10-24 2021-10-24 Emergency X WALKER [facility] ERT [id number] Univers 16:27:00 22:26:00 CHARITY barbosa [facility] 2021-10-24 2021-10-24 Emergency Reilly Means [facility] 1.2.840. 114 [id number] Univers 16:27:00 22:26:00 Charity Mcallister 350.1.13.10 ity of [place] 4.2.7.2.686 [facility] [id number] [address] 2021-10-23 2021-10-24 Emergency [facility] [id number] Univers 20:22:00 02:57:00 CHARITY barbosa [facility] 2021-10-23 2021-10-24 [facility] 1.2.910.476 [id number] [id number] Univers 20:22:00 02:57:00 Charity [facility] 350.1.13.10 ity [facility] 4.2.7.2.686 [facility] [id number] [address] 2021-09-07 2021-09-07 Outpatient R SELF, [facility] [id number] Univers 08:00:00 08:00:00 GADIEL rodas [facility] 2021-09-07 2021-09-07 Outpatient R SELF, [facility] [id number] Univers 08:00:00 08:00:00 GADIEL raheemcharlie rodas [facility] 2021-08-21 2021-08-21 Outpatient R EAST, [facility] [id number] Univers 10:45:00 10:45:00 SANTIAGO barbosa [facility] 2021-08-21 2021-08-21 Fly Finisher Santiago Cardenas 1.2.840.1 [id number] Univers 10:45:00 10:45:00 Visit [facility] 44251.1.1 ity of 3.104.2.7 [place] .3.949249 Medica l .8 [place] 2021-08-21 2021-08-21 Office Qi Cardenas2.840.2 [id number] 516 Univers 08:30:00 09:00:00 Visit Santiago 77692.1.1 ity of 3.104.2.7 [place] .3.665457 Medica l .8 [place] 2021-08-21 2021-08-21 Office East[facility] 1.2.101.869 3701 8516 Univers 08:30:00 09:00:00 Visit Santiago [facility] 350.1.13.10 i ty of CL[place]ICS 4[place] [id number] [facility] 089 Branch 2021-08-21 2021-08-21 Outpatient [facility] [id number] Univers 08:30:00 08:30:00 SANTIAGO [facility] 2021-08-21 2021-08-21 Travel 1.2.840.1 1.2.651.095 0547 3865 Univers 00:00:00 00:00:00 22650.1.1 350.1.13.10 ity of 3.104.2.7 4.[place].7.3.698 [place] .3.797222 084.8 Medica l .8 [place] 2021-08-14 2021-08-14 Telephone East, 1.2.840.4 [id number] Univers 00:00:00 00:00:00 Santiago 02504.1.1 ity of 3.104.2.7 [place] .3.623665 Medica l .8 [place] 2021-08-13 2021-08-13 Telephone East, 1.2.840.4 [id number] Univers 00:00:00 00:00:00 Santiago 51693.1.1 ity of 3.104.2.7 [place] .3.936364 Medica l .8 [place] 2021-08-11 2021-08-11 Outpatient [facility] [id number] Univers 08:00:00 08:00:00 SANTIAGO raheemcharlie [facility] 2021-08-05 2021-08-05 Inpatient EDUARDO Leal OUTD [id number] [facility] 05:24:00 05:24:00 Mike 31 [facility] 2021-07-20 2021-07-20 Outpatient R EAST, [facility] [id number] Univers 10:00:00 10:00:00 [facility] 2021-07-14 2021-07-14 Office Anajacobo, KIMBERLEY 6400 1.2.840.114 13 [id number] [place] 08:45:00 09:34:[address] 350.1.13.58 Health 9.2.7.2.686 [id number] 1 2021-07-09 2021-07-09 Telephone Pl[place]our, UTP 6400 1.2.840.114 [id number] [place] 00:00:00 00:00:[address] 350.1.13.58 Health 9.2.7.2.686 [id number] 1 2021-07-09 2021-07-09 Telephone [place], UTP 6400 1.2.840.114 [id number] [place] 00:00:00 00:00:[address] 350.1.13.58 Health 9.2.7.2.686 [id number] 1 2021-07-03 2021-07-03 Outpatient R EAST, [facility] [id number] Univers 08:00:00 08:00:00 [facility] 2021-06-17 2021-06-17 In[facility] [id number] [facility] 10:56:00 14:36:00 Mike 47 [facility] 2021-06-15 2021-06-15 Outpatient R SELF, [facility] [id number] Univers 10:15:00 11:07:21 GADIEL ity o f [facility] 2021-06-15 2021-06-15 Outpatient R SELF, [facility] [id number] Univers 10:15:00 10:15:00 GADIEL ity o f [facility] 2021-06-15 2021-06-15 Outpatient R SELF, [facility] [id number] Univers 10:15:00 10:15:00 GADIEL ity o f [facility] 2021-06-15 2021-06-15 Orders Doctor 1.2.840.9 [id number] Univers 00:00:00 00:00:00 Only Unassigned, 55213.1.1 ity of [place] 3.104.2.7 [place] .3.930751 Medica l .8 [place] 2021-06-15 2021-06-15 Travel 1.2.840.1 1.2.539.688 4096 7719 Univers 00:00:00 00:00:00 50293.1.1 350.1.13.10 ity of 3.104.2.7 4.[place].7.3.698 [place] .3.483328 084.8 Medica l .8 [place] 2021-06-11 2021-06-11 Refill [facility], UNIVERSIT 1.2.015.018 [id number] 9185 Univers 00:00:00 00:00:00 [facility] 350.1.13.10 i ty of [place] [id number] [address] 2021-06-11 2021-06-11 Refill [facility], 1.2.840.3 [id number] 185 Univers 00:00:00 00:00:00 Santiago 70622.1.1 ity of 3.104.2.7 [place] .3.769107 Medica l .8 [place] 2021-06-05 2021-06-05 Outpatient R [facility] [id number] Univers 09:00:00 09:00:00 SANTIAGO ity of [facility] 2021-06-02 2021-06-02 Telephone [facility], [facility] 1.2.840.114 [id number] Univers 00:00:00 00:00:00 [facility] 350.1.13.10 i ty of [place] [id number] [address] 2021-06-02 2021-06-02 Telephone [facility], 1.2.840.4 [id number] 903 36237 Univers 00:00:00 00:00:00 Santiago 67562.1.1 ity of 3.104.2.7 [place] .3.833283 Medica l .8 [place] 2021-05-29 2021-05-29 Telephone East, 1.2.840.5 [id number] 902 [id number] Univers 00:00:00 00:00:00 Santiago 31699.1.1 ity of 3.104.2.7 [place] .3.090074 Medica l .8 [place] 2021-05-29 2021-05-29 Telephone East, 1.2.840.4 [id number] 902 82154 Univers 00:00:00 00:00:00 Santiago 86334.1.1 ity of 3.104.2.7 [place] .3.735643 Medica l .8 [place] 2021-05-25 2021-05-25 Outpatient R [facility] [id number] Univers 08:00:00 08:00:00 GADIEL barbosa o f [facility] 2021-04-29 2021-04-29 Outpatient R LALA [facility] [id number] Univers 08:00:00 08:00:00 NIKOLAI barbosa [facility] 2021-04-28 2021-04-28 Telephone [place], UTP 6400 1.2.840.114 [id number] [place] 00:00:00 00:00:[address] 350.1.13.58 Health 9.2.7.2.686 [id number] 1 2021-04-28 2021-04-28 Telephone Jailyn, 1.2.840.2 [id number] 21 [id number] Methodi 00:00:00 00:00:[address] 3.430.2.7 Hospit a .3.428124 l .8 2021-03-31 2021-03-31 Orders Carol Ann, 1.2.840.1 [id number] 21 [id number] Methodi 00:00:00 00:00:00 Only Sarai Lieberman 04191.1.1 979 s t 3.430.2.7 Hospit a .3.332191 l .8 2021-03-30 2021-03-30 [facility] [id number] Univers 08:45:00 08:45:00 GADIEL ity o f [facility] 2021-03-24 2021-03-24 Telephone Jailyn, 1.2.840.4 [id number] 21 [id number] Methodi 00:00:00 00:00:[address] 3.430.2.7 Hospit a .3.000732 l .8 2021-02-13 2021-02-13 Telephone Ronald, 1.2.840.6 [id number] 876 69821 Univers 00:00:00 00:00:00 Santiago 11625.1.1 ity of 3.104.2.7 [place] .3.583967 Medica l .8 [place] 2021-01-28 2021-01-28 [facility] [id number] Univers 08:45:00 09:37:00 NIKOLAI familia [facility] 2021-01-28 2021-01-28 Travel 1.2.840.1 1.2.429.144 [id number] [id number] Univers 00:00:00 00:00:00 84487.1.1 350.1.13.10 ity of 3.104.2.7 4.2.7.3.698 [place] .3.309818 084.8 Medica l .8 [place] 2021-01-19 2021-01-19 Telephone Pelletier, 1.2.840.1 [id number] 2100 [id number] Methodi 00:00:00 00:00:[address] 3.430.2.7 Hospit a .3.797392 l .8 2021-01-04 2021-01-04 Letter Shelia 1.2.840.3 [id number] 696 Univers 00:00:00 00:00:00 (Out) Dagoberto Peterson 88153.1.1 ity of 3.104.2.7 [place] .3.585502 Medica l .8 [place] 2021-01-04 2021-01-04 Dmitry Bass 1.2.840.8 [id number] 93334 696 Univers 00:00:00 00:00:00 (Out) Dagoberto H 43957.1.1 ity of 3.104.2.7 [place] .3.601906 Medica l .8 Branch 2021-01-03 2021-01-03 Dmitry Bass, 1.2.840.8 [id number] 26949 790 Univers 00:00:00 00:00:00 (Out) Dagoberto H 57207.1.1 ity of 3.104.2.7 [place] .3.772347 Medica l .8 [place] 2021-01-03 2021-01-03 Dmitry Bass, 1.2.840.1 [id number] 26978 790 Univers 00:00:00 00:00:00 (Out) Dagoberto H 87454.1.1 ity of 3.104.2.7 [place] .3.929091 Medica l .8 [place] 2021-01-02 2021-01-02 Outpatient R [facility] [id number] Univers 13:40:00 13:40:00 ity of [facility] 2021-01-02 2021-01-02 Laboratory KalaelbertCuba 1.2.840.2 [id number] [id number] Univers 12:14:13 12:57:34 Only Lab, [facility] [place] 38983.1.1 ity of 3.104.2.7 [place] .3.172387 Medica l .8 [place] 2021-01-02 2021-01-02 Laboratory Trayclarence Garciashola 1.2.840.3 [id number] [id number] Univers 12:14:13 12:57:34 Only Lab, Adc Fam Pob I 12311.1.1 ity of 3.104.2.7 [place] .3.431926 Medica l .8 [place] 2021-01-02 2021-01-02 Travel 1.2.840.1 1.2.414.890 8966 2306 Univers 00:00:00 00:00:00 80098.1.1 350.1.13.10 ity of 3.104.2.7 4.2.7.3.698 [place] .3.009000 084.8 Medica l .8 [place] 2021-01-02 2021-01-02 Letter Doctor 1.2.840.0 [id number] 948 Univers 00:00:00 00:00:00 (Out) Unassigned, 27179.1.1 ity of [place] 3.104.2.7 [place] .3.333173 Medica l .8 [place] 2021-01-02 2021-01-02 Letter Doctor 1.2.840.1 [id number] 79032 946 Univers 00:00:00 00:00:00 (Out) Unassigned, 91670.1.1 ity of [place] 3.104.2.7 [place] .3.765144 Medica l .8 [place] 2021-01-02 2021-01-02 Travel 1.2.840.1 1.2.802.537 1047 2306 Univers 00:00:00 00:00:00 73874.1.1 350.1.13.10 ity of 3.104.2.7 4.2.7.3.698 [place] .3.179381 084.8 Medica l .8 [place] 2021-01-02 2021-01-02 Letter Doctor 1.2.840.1 [id number] 17199 948 Univers 00:00:00 00:00:00 (Out) Unassigned, 39208.1.1 ity of [place] 3.104.2.7 [place] .3.688589 Medica l .8 Branch 2021-01-02 2021-01-02 Letter Doctor 1.2.840.1 [id number] 50591 946 Univers 00:00:00 00:00:00 (Out) Unassigned, 47862.1.1 ity of [place] 3.104.2.7 [place] .3.366189 Medica l .8 Branch 2020-12-22 2020-12-22 Telephone Devin, 1.2.840.9 [id number] 862 90061 Univers 00:00:00 00:00:00 Robbi Hairston 09109.1.1 i ty of 3.104.2.7 [place] .3.627097 Medica l .8 [place] 2020-12-22 2020-12-22 Telephone Devin, 1.2.840.2 [id number] 862 44468 Univers 00:00:00 00:00:00 Robbi R 68632.1.1 i ty of 3.104.2.7 [place] .3.189274 Medica l .8 [place] 2020-12-12 2020-12-12 Office [place], UTP 6400 1.2.840.114 12 [id number] [place] 07:42:02 08:18:50 [facility] [facility] 350.1.13.58 Health 9.2.7.2.686 [id number] 1 2020-12-12 2020-12-12 Office [place], UTP 6400 1.2.840.114 12 [id number] 07:42:02 08:18:50 Visit [facility] ST 350.1.13.58 9.2.7.2.686 [id number] 1 2020-12-09 2020-12-09 Telephone [facility], 1.2.840.1 [id number] Methodi 00:00:00 00:00:00 Sarai M. 38651.1.1 316 s t 3.430.2.7 Hospit a .3.872276 l .8 2020-12-08 2020-12-08 [facility], 1.2.840.1 [id number] 2100 962134 Methodi 12:35:54 23:59:00 Encounter Ray 26893.1.[address] 3.430.2.7 Hospit a .3.825640 l .8 2020-12-08 2020-12-08 [facility], 1.2.840.1 [id number] 86642 69655 Methodi 17:25:00 17:30:[address] 3.430.2.7 Hospit a .3.727613 l .8 2020-12-08 2020-12-08 Office [facility], 1.2.840.1 [id number] 62952 93501 Methodi 10:30:00 11:39:56 Visit Ray [address]1860.1.[address] 3.430.2.7 Hospit a .3.014284 l .8 2020-12-08 2020-12-08 Travel 1.2.840.1 1.2.135.219 7747 109327 Methodi 00:00:00 00:00:[address] 3.430.2.7 0.2.7.3.698 Ho spita .3.378398 084.8 l .8 2020-12-02 2020-12-02 Fly Finisher Santiago Cardenas 1.2.840.1 [id number] Univers 10:20:06 10:36:19 Visit [facility] 02500.1.1 ity of 3.104.2.7 [place] .3.090786 Medica l .8 [place] 2020-12-02 2020-12-02 Fly Finisher Santiago Cardenas 1.2.840.1 [id number] Univers 10:20:06 10:36:19 Visit [facility] 73222.1.1 ity of 3.104.2.7 [place] .3.874332 Medica l .8 [place] 2020-12-02 2020-12-02 Fly Finisher [facility] UNIVERSIT 1.2.840.114 8 [id number] 10:20:06 10:36:19 Visit [facility] 350.1.13.10 CLINICS 4.2.7.2.686 197.7569847 316 2020-12-02 2020-12-02 Office Ronald 1.2.840.3 [id number] 56358 528 Univers 08:31:37 09:01:37 Visit Santiago 60364.1.1 ity of 3.104.2.7 [place] .3.624971 Medica l .8 [place] 2020-12-02 2020-12-02 Outpatient R RONALD [facility] [id number] 304 Univers 09:00:00 09:00:00 SANTIAGO ity of [facility] 2020-11-25 2020-11-25 Office Devin, 1.2.840.1 [id number] 62197 865 Univers 11:06:30 11:58:14 Visit Robbi Hairston 27090.1.1 i ty of 3.104.2.7 [place] .3.462054 Medica l .8 [place] 2020-11-25 2020-11-25 Office Devin, 1.2.840.0 [id number] 58220 865 Univers 11:06:30 11:58:14 Visit Robbi Hairston 77089.1.1 i ty of 3.104.2.7 [place] .3.001544 Medica l .8 [place] 2020-11-25 2020-11-25 [facility] 1.2.840.114 [id number] 11:06:30 11:58:14 Visit Robbi Marika [employer] SERVICE HELPER 350.1.13.10 REGIONAL 4.2.7.2.686 MATERNAL [id number] & CHILD [address] [place] [address] 2020-11-25 2020-11-25 Outpatient R [facility] [id number] Univers 11:00:00 11:00:00 ity of [facility] 2020-11-25 2020-11-25 Telephone Devin, 1.2.840.5 [id number] 855 10800 Univers 00:00:00 00:00:00 Robbi Hairston 77548.1.1 i ty of 3.104.2.7 [place] .3.942158 Medica l .8 [place] 2020-11-25 2020-11-25 Refill East, 1.2.840.5 [id number] 12195 592 Univers 00:00:00 00:00:00 Santiago 28398.1.1 ity of 3.104.2.7 [place] .3.230009 Medica l .8 [place] 2020-11-25 2020-11-25 Travel 1.2.840.1 1.2.863.575 0898 0247 Univers 00:00:00 00:00:00 11632.1.1 350.1.13.10 ity of 3.104.2.7 4.2.7.3.698 [place] .3.835015 084.8 Medica l .8 [place] 2020-11-25 2020-11-25 Orders Doctor 1.2.840.6 [id number] 064 Univers 00:00:00 00:00:00 Only Unassigned, 78486.1.1 ity of [place] 3.104.2.7 [place] .3.700676 Medica l .8 Branch 2020-11-25 2020-11-25 Telephone [place], 1.2.840.1 [id number] 855 27265 Univers 00:00:00 00:00:00 Robbi Hairston 37793.1.1 i ty of 3.104.2.7 [place] .3.559098 Medica l .8 [place] 2020-11-25 2020-11-25 Refill East, 1.2.840.7 [id number] 09111 592 Univers 00:00:00 00:00:00 Santiago 53601.1.1 ity of 3.104.2.7 [place] .3.528099 Medica l .8 [place] 2020-11-25 2020-11-25 Travel 1.2.840.1 1.2.075.419 4581 0247 Univers 00:00:00 00:00:00 98028.1.1 350.1.13.10 ity of 3.104.2.7 4.2.7.3.698 [place] .3.998206 084.8 Medica l .8 [place] 2020-11-25 2020-11-25 Orders Doctor 1.2.840.9 [id number] 61286 064 Univers 00:00:00 00:00:00 Only Unassigned, 70207.1.1 ity of [place] 3.104.2.7 [place] .3.820480 Medica l .8 Branch 2020-11-25 2020-11-25 Refill [facility] 1.2.612.368 9803 4592 00:00:00 00:00:00 [facility] 350.1.13.10 CLINICS 4.2.7.2.686 [id number] 089 2020-11-25 2020-11-25 Telephone [facility] 1.2.059.238 3531 0821 00:00:00 00:00:00 Robbi Marika FOOD SERVICE HELPER 350.1.13.10 [facility] 4.2.7.2.686 MATERNAL [id number] & CHILD [address] [place] [address] 2020-11-14 2020-11-14 Abstract Clark, 1.2.840.1 [id number] 99497 Methodi 00:00:00 00:00:[address] 3.430.2.7 Hospit a .3.709259 l .8 2020-11-14 2020-11-14 Telephone Clark, 1.2.840.1 [id number] 2100 [id number] Methodi 00:00:00 00:00:[address] 3.430.2.7 Hospit a .3.643039 l .8 2020-11-12 2020-11-12 Outpatient R [facility] [id number] Univers 08:30:00 08:30:00 SANTIAGO barbosa [facility] 2020-11-07 2020-11-07 Telephone Agustina Ortiz UTP 6400 1.2.840.11 4 [id number] [place] 00:00:00 00:00:[address] 350.1.13.58 Health 9.2.7.2.686 [id number] 1 2020-11-07 2020-11-07 Telephone Diana UTP 6400 1.2.840.114 124 [id number] 00:00:00 00:00:[address] 350.1.13.58 9.2.7.2.686 [id number] 1 2020-10-31 2020-10-31 Office Hematporay UTP 6400 1.2.840.114 12 [id number] [place] 07:54:00 09:45:[address] 350.1.13.58 Health 9.2.7.2.686 [id number] 1 2020-10-30 2020-10-30 Abstract Rody Maguire UTP 6400 1.2.840.1 14 [id number] [place] 00:00:00 00:00:[address] 350.1.13.58 Health 9.2.7.2.686 [id number] 1 2020-10-29 2020-10-29 Refill [place], 1.2.840.4 [id number] 400 Univers 00:00:00 00:00:00 Santiago 19993.1.1 ity of 3.104.2.7 [place] .3.630538 Medica l .8 Branch 2020-10-29 2020-10-29 Refill [place], 1.2.840.3 [id number] 63274 400 Univers 00:00:00 00:00:00 Santiago 21772.1.1 ity of 3.104.2.7 [place] .3.888637 Medica l .8 Branch 2020-10-27 2020-10-27 Telephone Jailyn, 1.2.840.7 [id number] Methodi 00:00:00 00:00:[address] 3.430.2.7 Hospit a .3.909188 l .8 2020-10-24 2020-10-24 Telephone Clark, 1.2.840.1 [id number] 2100 [id number] Methodi 00:00:00 00:00:[address] 3.430.2.7 Hospit a .3.393269 l .8 2020-10-22 2020-10-22 Outpatient R SELF, [facility] [id number] Univers 13:00:00 13:00:00 GADIEL maciely o f [facility] 2020-10-22 2020-10-22 Travel 1.2.840.1 1.2.530.893 3079 3839 Univers 00:00:00 00:00:00 19022.1.1 350.1.13.10 ity of 3.104.2.[place] 4.[place]7.3.698 [place] .3.091479 084.8 Medica l .8 Branch 2020-10-22 2020-10-22 Travel 1.2.840.1 1.2.901.465 5550 3839 [facility] 00:00:00 00:00:00 35073.1.1 350.1.13.10 ity of 3.104.2.[place]3.698 [place] .3.663881 084.8 Medic l 8 [place] 2020-10-13 2020-10-13 Outpatient R SELF, [facility] [id number] Univers 08:45:00 08:45:00 GADIEL ity o f [facility] 2020-10-06 2020-10-12 Telemedici [facility], 1.2.840.1 [id number] Methodi 15:30:00 00:08:46 ne Ray 60347.1.[address] 3.430.2.7 Hospit a .3.494435 l .8 2020-09-30 2020-09-30 [facility], 1.2.840.0 [id number] Methodi 00:00:00 00:00:[address] 3.430.2.7 Hospit a .3.031618 l .8 2020-09-21 2020-09-21 [facility] 1.2.840.1 1.2.876.675 1479 [id number] Methodi 00:00:00 00:00:[address] 3.430.2.7 0.2.7.3.698 Ho spita .3.579622 084.8 l .8 2020-09-06 2020-09-06 [facility] 1.2.840.1 [id number] 18298 Methodi 17:42:30 23:59:[address] 3.430.2.7 Hospit a .3.275978 l .8 2020-09-06 2020-09-06 [facility], 1.2.840.1 [id number] 2100 010108 Methodi 16:50:00 17:41:00 Encounter Ray 41659.1.[address] 3.430.2.7 Hospit a .3.698460 l .8 2020-09-05 2020-09-05 Hospital [facility], 1.2.840.1 [id number] Methodi 09:17:00 19:45:00 Encounter Ray [address]241.1.[address] 3.430.2.7 Hospit a .3.421247 l .8 2020-09-05 2020-09-05 Surgery [facility], 1.2.840.1 [id number] Methodi 11:30:00 13:15:[address] 3.430.2.7 Hospit a .3.383770 l .8 2020-09-05 2020-09-05 Anesthesia Remigio, 1.2.840.1 [id number] 023 [id number] Methodi 11:27:00 12:20:00 Event Sarvalentinawathi 95878.1.1 243 s t V. 3.430.2.7 Hospit a .3.388502 l .8 2020-09-05 2020-09-05 Travel 1.2.840.1 1.2.408.475 3615 [id number] Methodi 00:00:00 00:00:[address] 3.430.2.7 0.2.7.3.698 Ho spita .3.638029 084.8 l .8 2020-09-04 2020-09-04 Telephone [place], 1.2.840.1 [id number] Methodi 00:00:00 00:00:00 Sarai Corbin. 07518.1.1 762 s t 3.430.2.7 Hospit a .3.596122 l .8 2020-09-02 2020-09-02 Telephone [place], 1.2.840.9 [id number] Methodi 00:00:00 00:00:00 Sarai Corbin. 41130.1.1 344 s t 3.430.2.7 Hospit a .3.192154 l .8 2020-08-29 2020-08-30 [id number] [address] [place] [address] 10:20:00 14:10:00 Outpatient r Lima 00 l [facility] 2020-08-29 2020-08-30 Outpatient H[facility], [facility] 05:20:00 09:10:00 [place] 2020-08-06 2020-08-06 Office [place], 1.2.840.9 [id number] Univers 08:03:23 09:17:49 Visit Santiago 54670.1.1 ity of 3.104.2.7 [place] .3.458442 Medica l .8 [place] 2020-08-06 2020-08-06 Outpatient R EAST, [facility] [id number] Univers 08:30:00 08:30:00 SANTIAGO barbosa [facility] 2020-07-14 2020-07-14 Outpatient R SELF, [facility] [id number] Univers 09:30:00 09:30:00 GADIEL barbosa o [facility] 2020-07-14 2020-07-14 Travel 1.2.840.1 1.2.103.634 2535 [id number] Univers 00:00:00 00:00:00 72403.1.1 350.1.13.10 ity of 3.104.2.7 [place].3.698 [place] .3.326543 084.8 Medica l .8 [place] 2020-07-14 2020-07-14 Orders Doctor 1.2.840.6 [id number] Univers 00:00:00 00:00:00 Only Unassigned, 55849.1.1 ity of [place] 3.104.2.7 [place] .3.255473 Medica l .8 [place] 2020-06-16 2020-06-16 Outpatient R SELF, [facility] [id number] Univers 08:00:00 08:00:00 GADIEL barbosa o f [facility] 2020-06-06 2020-06-06 Telephone [place], 1.2.840.5 [id number] Univers 00:00:00 00:00:00 Santiago 62654.1.1 ity of 3.104.2.7 [place] .3.355517 Medica l .8 [place] 2020-06-04 2020-06-04 Fly Finisher Santiago Cardenas 1.2.840.1 [id number] Univers 09:31:58 09:40:12 Visit [facility] 85139.1.1 ity of 3.104.2.7 [place] .3.142647 Medica l .8 [place] 2020-06-04 2020-06-04 Office Ronald [facility] 1.2.923.321 [id number] [id number] Univers 08:13:41 09:28:25 Visit Santiago [facility] 350.1.13.10 i ty of CLINICS 4.2.7.2.686 Richi bach 788.7139881 [facility] porfirio 089 [place] 2020-06-04 2020-06-04 Outpatient R [facility] [id number] Univers 08:30:00 08:30:00 SANTIAGO ity of [facility] 2020-06-04 2020-06-04 Orders Doctor 1.2.840.2 [id number] Univers 00:00:00 00:00:00 Only Unassigned, 55346.1.1 ity of [place] 3.104.2.7 [place] .3.281238 Medica l .8 [place] 2020-05-19 2020-05-19 Telephone [place], 1.2.840.4 [id number] Univers 00:00:00 00:00:00 [place] 60180.1.1 ity of 3.104.2.7 [place] .3.068533 Medica l .8 [place] 2020-04-24 2020-04-24 Telephone [place], 1.2.840.1 [id number] Univers 00:00:00 00:00:00 [place] 56586.1.1 ity of 3.104.2.7 [place] .3.852334 Medica l .8 [place] 2020-04-14 2020-04-14 Outpatient R [facility] [id number] Univers 09:00:00 09:00:00 SANTIAGO itcharlie of [facility] 2020-04-14 2020-04-14 Telephone [place], 1.2.840.7 [id number] Univers 00:00:00 00:00:00 [place] 72937.1.1 ity of 3.104.2.7 [place] .3.497901 Medica l .8 [place] 2020-03-31 2020-03-31 Outpatient R EAST, [facility] [id number] Univers 08:30:00 08:30:00 SANTIAGO ity of [facility] 2020-03-03 2020-03-03 Outpatient R SELF, [facility] [id number] Univers 08:00:00 08:00:00 GADIEL barbosa o f [facility] 2020-03-03 2020-03-03 Outpatient R SELF, [facility] [id number] Univers 08:00:00 08:00:00 GADIEL barbosa o f [facility] 2020-03-03 2020-03-03 Travel 1.2.840.1 1.2.453.165 [id number] [id number] Univers 00:00:00 00:00:00 11874.1.1 350.1.13.10 ity of 3.104.2.[place]3.698 [place] .3.759030 084.8 Medica l .8 [place] 2020-02-06 2020-02-06 Telephone [place], 1.2.840.2 [id number] [id number] Univers 00:00:00 00:00:00 [place] 06976.1.1 ity of 3.104.2.7 [place] .3.296392 Medica l .8 [place] 2020-01-26 2020-01-26 Emergency Caridad, 1.2.840.6 [id number] Univers 10:03:00 13:05:00 Cynise 51555.1.1 ity of 3.104.2.7 [place] .3.130002 Medica l .8 [place] 2020-01-26 2020-01-26 Travel 1.2.840.1 1.2.282.955 2860 0120 Univers 00:00:00 00:00:00 64143.1.1 350.1.13.10 ity of 3.104.2.[place].3.698 [place] .3.276992 084.8 Medica l .8 [place] 2020-01-25 2020-01-25 Outpatient R EAST, [facility] [id number] Univers 08:30:00 08:30:00 SANTIAGO ity of [facility] 2020-01-25 2020-01-25 Telemedici [place], 1.2.840.4 [id number] Univers 07:36:49 08:06:49 ne Visit Santiago 63560.1.1 ity of 3.104.2.7 [place] .3.358553 Medica l .8 [place] 2020-01-16 2020-01-16 Outpatient R EAST, [facility] [id number] Univers 08:00:00 08:00:00 SANTIAGO ity [facility] 2020-01-16 2020-01-16 Telephone [place], 1.2.840.9 [id number] Univers 00:00:00 00:00:00 [place] 75299.1.1 ity of 3.104.2.7 [place] .3.370695 Medica l .8 [place] 2020-01-14 2020-01-14 Outpatient R SELF, [facility] [id number] Univers 08:00:00 08:00:00 GADIEL raheemy o f [facility] 2019-12-31 2019-12-31 Outpatient R SELF, [facility] [id number] Univers 08:45:00 08:45:00 GADIEL ity o f [facility] 2019-10-17 2019-10-17 Outpatient R EAST, [facility] [id number] Univers 08:30:00 08:30:00 SANTIAGO ity [facility] 2019-10-12 2019-10-12 Outpatient R EAST, [facility] [id number] Univers 13:00:00 13:00:00 SANTIAGO ity [facility] 2019-10-12 2019-10-12 Telemedici [place], 1.2.840.5 [id number] Univers 07:38:30 08:08:30 ne Visit Santiago 80933.1.1 ity of 3.104.2.7 [place] .3.105538 Medica l .8 [place] 2019-10-08 2019-10-08 Outpatient R SELF, [facility] [id number] Univers 10:15:00 10:15:00 GADIEL ity o f [facility] 2019-10-03 2019-10-03 Case Xiao, 1.2.840.7 [id number] Univers 00:00:00 00:00:00 Management Michael Corbin 79770.1.1 i ty of 3.104.2.7 [place] .3.212375 Medica l .8 [place] 2019-09-27 2019-09-27 Telephone [place], 1.2.840.2 [id number] [id number] Univers 00:00:00 00:00:00 [place] 59171.1.1 ity of 3.104.2.7 [place] .3.375282 Medica l .8 [place] 2019-09-04 2019-09-04 Refill [place], 1.2.840.1 [id number] Univers 00:00:00 00:00:00 Santiago 49884.1.1 ity of 3.104.2.7 [place] .3.511472 Medica l .8 [place] 2019-07-24 2019-07-24 Outpatient R [facility] [id number] Univers 08:30:00 08:30:00 SANTIAGO ity [facility] 2019-07-17 2019-07-17 Outpatient R [facility] [id number] Univers 10:00:00 10:00:00 SANTIAGO ity [facility] 2019-06-15 2019-06-15 Telephone [place], 1.2.840.9 [id number] Univers 00:00:00 00:00:00 [place] 95735.1.1 ity of 3.104.2.7 [place] .3.732576 Medica l .8 [place] 2019-06-13 2019-06-13 Telephone Team, [facility] 1.2.840.5 [id number] Univers 00:00:00 00:00:00 Health 34385.1.1 [place] .3.105672 Medica [place] .8 [place] 2019-05-10 2019-05-10 Refill [place], 1.2.840.4 [id number] Univers 00:00:00 00:00:00 [place] 94875.1.1 ity of 3.104.2.7 [place] .3.357513 Medica l .8 [place] 2019-05-09 2019-05-09 Refill Ronald, 1.2.840.7 [id number] Univers 00:00:00 00:00:00 [place] 10639.1.1 ity of 3.104.2.7 [place] .3.595500 Medica l .8 [place] 2019-04-30 2019-04-30 Outpatient R [facility], [facility] [id number] Univers 10:15:00 10:33:05 GADIEL barbosa o f [facility] 2019-04-18 2019-04-18 Fly Finisher Ronald [place] 1.2.840.1 [id number] Univers 10:00:39 10:44:31 Visit [facility] 36631.1.1 ity of 3.104.2.7 [place] .3.212142 Medica l .8 [place] 2019-04-18 2019-04-18 Outpatient R RONALD [facility] [id number] Univers 10:00:00 10:44:31 SANTIAGO ity of [facility] 2019-04-18 2019-04-18 Office Ronald, 1.2.840.4 [id number] Univers 08:27:44 09:53:27 Visit Santiago 96506.1.1 ity of 3.104.2.7 [place] .3.929520 Medica l .8 [place] 2019-04-18 2019-04-18 Orders Doctor 1.2.840.6 [id number] Univers 00:00:00 00:00:00 Only Unassigned, 51359.1.1 ity of [place] 3.104.2.7 [place] .3.518765 Medica l .8 [place] 2019-04-11 2019-04-11 Refill Ronald, 1.2.840.5 [id number] Univers 00:00:00 00:00:00 [place] 64969.1.1 ity of 3.104.2.7 [place] .3.068819 Medica l .8 [place] 2019-04-09 2019-04-09 Refill [place], 1.2.840.7 [id number] Univers 00:00:00 00:00:00 [place] 85270.1.1 ity of 3.104.2.7 [place] .3.011234 Medica l .8 [place] 2019-04-03 2019-04-03 Telephone Team, [facility] 1.2.840.5 [id number] Univers 00:00:00 00:00:00 Health 00602.1.1 [place] .3.246019 Medica l .8 [place] 2019-03-27 2019-03-27 Telephone Self, 1.2.840.3 [id number] [id number] Univers 00:00:00 00:00:00 Gadiel 95443.1.1 ity of 3.104.2.7 [place] .3.090380 Medica l .8 [place] 2019-01-17 2019-01-17 Office Ronald, 1.2.840.9 [id number] Univers 07:37:21 10:32:51 Visit Santiago 83867.1.1 ity of 3.104.2.7 [place] .3.628965 Medica l .8 [place] 2019-01-04 2019-01-12 Office Eveline Hansen 1.2.840.3 [id number] Univers 11:19:32 11:08:05 Visit Mariela 01836.1.1 ity of 3.104.2.7 [place] .3.103819 Medica l .8 [place] 2019-01-10 2019-01-10 Telephone Stanislav, 1.2.840.8 [id number] Univers 00:00:00 00:00:00 Eladio Inman 02605.1.1 ity of 3.104.2.7 [place] .3.170670 Medica l .8 [place] 2018-12-18 2018-12-18 Office Geraldine, 1.2.840.8 [id number] Univers 08:48:45 09:13:43 Visit Leyda 53923.1.1 it y of 3.104.2.7 [place] .3.781757 Medica l .8 [place] 2018-10-30 2018-10-30 Telephone East, 1.2.840.1 [id number] Univers 00:00:00 00:00:00 [place] 26966.1.1 ity of 3.104.2.7 [place] .3.772339 Medica l .8 [place] 2018-10-23 2018-10-23 Orders Doctor 1.2.840.8 [id number] Univers 00:00:00 00:00:00 Only Unassigned, 05005.1.1 ity of [place] 3.104.2.7 [place] .3.829576 Medica l .8 [place] 2018-10-23 2018-10-23 Nurse Selvin, 1.2.840.6 [id number] Univers 00:00:00 00:00:00 Triage Stefanie 42181.1.1 ity of 3.104.2.7 [place] .3.612630 Medica l .8 [place] 2018-10-23 2018-10-23 Telephone Self, 1.2.840.6 [id number] Univers 00:00:00 00:00:00 Gadiel 50818.1.1 ity of 3.104.2.7 [place] .3.198020 Medica l .8 [place] 2018-10-20 2018-10-20 Telephone Self, 1.2.840.3 [id number] Univers 00:00:00 00:00:00 Gadiel 12303.1.1 ity of 3.104.2.7 [place] .3.655434 Medica l .8 [place] Results Test Description Test Time Test Comments Results Result Comments Source CBC WITH DIFF 2023-01-27 19:35:25 Test Item Value Reference Range Interpretation Comme nts WBC (test code = 6690-2) 4.36 See_Comment [A utomated message] The system which ge nerated this result transmit arpit reference range: 4.30 - 1 1.10 10*3/?L. The reference r abbey was not used to interpr et this result as normal/abnor mal. RBC (test code = 789-8) 3.83 See_Comment L [Au tomated message] The system which [employer] nerated this result transmit arpit reference range: 3.93 - 5 .25 10*6/?L. The reference r abbey was not used to interpr et this result as normal/abnor mal. HGB (test code = 718-7) 9.9 g/dL 11.6-15.0 L HCT (test code = 4544-3) 33.7 % 35.7-45.2 L MCV (test code = 787-2) 88.0 fL 80.6-95.5 MCH (test code = 785-6) 25.8 pg 25.9-32.8 L MCHC (test code = 786-4) 29.4 g/dL 31.6-35.1 L RDW-SD (test code = 81054-4) 50.1 fL 39.0-49.9 H RDW-CV (test code = 788-0) 15.7 % 12.0-15.5 H PLT (test code = 777-3) 112 See_Comment L [Au tomated message] The system which [employer] nerated this result transmit arpit reference range: 166 - 35 8 10*3/?L. The reference range was not used to interpret th is result as normal/abnormal . MPV (test code = 49374-6) 9.7 fL 9.5-12.9 NRBC/100 WBC (test code = 0.0 See_Comment [ Automated message] The 9190026710) system which [employer] nerated this result transmit arpit reference range: 0.0 - 10 .0 /100 WBCs. The reference r abbey was not used to interpr et this result as normal/abnor mal. NRBC x10^3 (test code = See_Comment [Au tomated message] The 6819275589) system which [employer] nerated this result transmit arpit reference range: 10*3/?L. The reference range was not u sed to interpret this result as normal/abnormal . GRAN MAT (NEUT) % (test code 72.1 % = 770-8) IMM GRAN % (test code = 0.20 % 4886076768) LYMPH % (test code = 736-9) 16.1 % MONO % (test code = 5905-5) 10.3 % EOS % (test code = 713-8) 1.1 % BASO % (test code = 706-2) 0.2 % GRAN MAT x10^3(ANC) (test 3.14 10*3/uL 1.88-7.09 code = 5182507243) IMM GRAN x10^3 (test code = 0.00-0.06 3060838526) LYMPH x10^3 (test code = 0.70 10*3/uL 1.32-3.29 L 731-0) MONO x10^3 (test code = 0.45 10*3/uL 0.33-0.92 742-7) EOS x10^3 (test code = 0.05 10*3/uL 0.03-0.39 711-2) BASO x10^3 (test code = 0.01-0.07 704-7) Lab Interpretation (test Abnormal code = 14243-9) [facility]. METABOLIC PANEL (40636)2022-05-06 22:42:55 Test Item Value Reference Range Interpretation Comments NA (test code = 137 mmol/L 135-145 7796651453) K (test code = 3.2 mmol/L 3.5-5.0 L 1813920433) CL (test code = 100 mmol/L 98-108 0642803288) CO2 TOTAL (test code = 23 mmol/L 23-31 0174429769) AGAP (test code = 2-16 0912312975) BUN (test code = 41 mg/dL 7-23 H 3239516838) GLUCOSE (test code = 98 mg/dL 70-110 8674519443) CREATININE (test code = 1.55 mg/dL 0.50-1.04 H 1104797954) TOTAL BILI (test code = 0.8 mg/dL 0.1-1.6 4892595479) CALCIUM (test code = 8.3 mg/dL 8.6-10.6 L 4013420069) T PROTEIN (test code = 6.9 g/dL 6.3-8.2 0125486056) ALBUMIN (test code = 3.9 g/dL 3.5-5.0 2189302600) ALK PHOS (test code = 89 U/L 34-122 4678802327) ALTv (test code = 101 U/L 5-35 H 1742-6) AST(SGOT) (test code = 203 U/L 13-40 H 4804793490) eGFR (test code = mL/min/1.73m2 7165954189) KYLE (test code = KYLE) Association of [...] tests). Lab Interpretation Abnormal (test code = 51824-3) [facility] WITH [id number] 22:33:52 Test Item Value Reference Range Interpretation Comments WBC (test code = See_Comment L [Automated 9197-2) message] The sy stem which generated this result transmitted reference range : 4.30 - 11.10 10*3/?L. The reference range was not used to interpret this result as normal/abnormal . RBC (test code = See_Comment [Automated 159-8) message] The sy stem which generated this [...] RDW-SD (test code = 46.3 fL 39.0-49.9 25273-3) RDW-CV (test code = 13.5 % 12.0-15.5 788-0) PLT (test code = See_Comment L [Automated 777-3) message] The sy stem which generated this result transmitted reference range : 166 - 358 10*3/ ?L. The reference r abbey was not used to interpret this result as normal/abnormal . MPV (test code = 9.5 fL 9.5-12.9 71986-2) NRBC/100 WBC (test See_Comment [Automat ed code = 6663569199) message] The system which generated this result transmitted reference range : 0.0 - 10.0 /100 WBCs. The refer ence range was not u sed to interpret th is result as normal/abnormal . NRBC x10^3 (test code See_Comment [Auto mated = 7237150909) message] The s ystem which generated this result transmitted reference range : 10*3/?L. The reference range was not used to interpret this result as normal/abnormal . GRAN MAT (NEUT) % 58.3 % (test code = 770-8) IMM GRAN % (test code 0.80 % = 4440425833) LYMPH % (test code = 28.1 % 736-9) MONO % (test code = 12.0 % 5905-5) EOS % (test code = 0.5 % 713-8) BASO % (test code = 0.3 % 706-2) GRAN MAT x10^3(ANC) 2.29 10*3/uL 1.88-7.09 (test code = 0983762820) IMM GRAN x10^3 (test 0.03 10*3/uL 0.00-0.06 code = 9209191732) LYMPH x10^3 (test code 1.10 10*3/uL 1.32-3.29 L = 731-0) MONO x10^3 (test code 0.47 10*3/uL 0.33-0.92 = 742-7) EOS x10^3 (test code = 0.03-0.39 L 711-2) BASO x10^3 (test code 0.01-0.07 = 704-7) Lab Interpretation Abnormal (test code = 51628-1) [facility] METABOLIC PANEL (NA, K, CL, CO2, GLUCOSE, BUN, CREATININE, CA)2022-04-22 21:43:42 Test Item Value Reference Range Interpretation Comments NA (test code = 142 mmol/L 135-145 5693181763) K (test code = 3.5 mmol/L 3.5-5.0 2329483753) CL (test code = 106 mmol/L 98-108 0128089836) CO2 TOTAL (test code = 26 mmol/L 23-31 7196809467) AGAP (test code = 2-16 1037949739) BUN (test code = 29 mg/dL 7-23 H 2284321797) GLUCOSE (test code = 84 mg/dL 70-110 9174946410) CREATININE (test code = 1.16 mg/dL 0.50-1.04 H 4836519178) CALCIUM (test code = 8.2 mg/dL 8.6-10.6 L 0144770371) eGFR (test code = mL/min/1.73m2 4739693098) KYLE (test code = KYLE) Association of [...] tests). Lab Interpretation Abnormal (test code = 65677-7) [facility] WITH [id number] 21:33:01 Test Item Value Reference Range Interpretation [...] (test code = 50.7 fL 39.0-49.9 H 84369-1) RDW-CV (test code = 14.6 % 12.0-15.5 788-0) PLT (test code = See_Comment L [Automated 777-3) message] The sy stem which generated this result transmitted reference range : 166 - 358 10*3/ ?L. The reference r abbey was not used to interpret this result as normal/abnormal . MPV (test code = 8.8 fL 9.5-12.9 L 57331-1) NRBC/100 WBC (test See_Comment [Automat ed code = 5739998231) message] The system which generated this result transmitted reference range : 0.0 - 10.0 /100 WBCs. The refer ence range was not u sed to interpret th is result as normal/abnormal . NRBC x10^3 (test code See_Comment [Auto mated = 2144598856) message] The s ystem which generated this result transmitted reference range : 10*3/?L. The reference range was not used to interpret this result as normal/abnormal . GRAN MAT (NEUT) % 70.9 % (test code = 770-8) IMM GRAN % (test code 0.50 % = 7655710754) LYMPH % (test code = 17.4 % 736-9) MONO % (test code = 9.0 % 5905-5) EOS % (test code = 1.7 % 713-8) BASO % (test code = 0.5 % 706-2) GRAN MAT x10^3(ANC) 4.60 10*3/uL 1.88-7.09 (test code = 9568717400) IMM GRAN x10^3 (test 0.03 10*3/uL 0.00-0.06 code = 1125543418) LYMPH x10^3 (test code 1.13 10*3/uL 1.32-3.29 L = 731-0) MONO x10^3 (test code 0.58 10*3/uL 0.33-0.92 = 742-7) EOS x10^3 (test code = 0.11 10*3/uL 0.03-0.39 711-2) BASO x10^3 (test code 0.03 10*3/uL 0.01-0.07 = 704-7) Lab Interpretation Abnormal (test code = 50689-1) [facility] [id number] 06:01:07 Test Item Value Reference Range Interpretation Comments Blood Culture-Aerobic No organisms No growth Previo us (test code = 53115-5) isolated prelim inary verified result was Culture [...] Culture-Anaerobic isolated preliminar y (test code = 65608-6) verifi ed result was Culture In Progress [...] CDT Lab Interpretation Normal (test code = 74565-6) [facility] CULTURE [id number] 06:01:07 Test Item Value Reference Range Interpretation Comments Blood Culture-Aerobic No organisms No growth Previo us (test code = 70028-9) isolated prelim inary verified result was Culture [...] Culture-Anaerobic isolated preliminar y (test code = 02593-6) verifi ed result was Culture In Progress [...] CDT Lab Interpretation Normal (test code = 35319-2) [facility] [id number] 06:01:07 Test Item Value Reference Range Interpretation Comments Blood Culture-Aerobic No organisms No growth Previo us (test code = 03498-2) isolated prelim inary verified result was Culture [...] Culture-Anaerobic isolated preliminar y (test code = 03239-3) verifi ed result was Culture In Progress [...] CDT Lab Interpretation Normal (test code = 73006-9) [id number]10 Test Item Value Reference Range Interpretation Comments NT-proBNP (test code 2660 pg/mL See_Comment H [Autom ated = 3237427465) message] The system which generated this result transmitted reference range : <=125. The reference range was not used to interpret this result as normal/abnormal . KYLE (test code = KYLE) Biotin has been reported to cause a negative bias, interpret results relative to patient's use of biotin. Lab Interpretation Abnormal (test code = 59751-2) [id number] 10:49:10 Test Item Value Reference Range Interpretation Comments NT-proBNP (test code 2660 pg/mL See_Comment H [Autom ated = 5307403640) message] The system which generated this result transmitted reference range : <=125. The reference range was not used to interpret this result as normal/abnormal . KYLE (test code = KYLE) Biotin has been reported to cause a negative bias, interpret results relative to patient's use of biotin. Lab Interpretation Abnormal (test code = 99149-7) [facility] METABOLIC PANEL (NA, K, CL, CO2, GLUCOSE, BUN, CREATININE, CA)2022-02-15 10:44:07 Test Item Value Reference Range Interpretation Comments NA (test code = 134 mmol/L 135-145 L 0200119892) K (test code = 3.2 mmol/L 3.5-5 L 4917979630) CL (test code = 98 mmol/L 98-108 3167948573) CO2 TOTAL (test code = 27 mmol/L 23-31 0361052841) AGAP (test code = 2-16 7136191221) BUN (test code = 19 mg/dL 7-23 7162479188) GLUCOSE (test code = 102 mg/dL 70-110 0540969104) CREATININE (test code = 0.95 mg/dL 0.5-1.04 1763032796) CALCIUM (test code = 8.5 mg/dL 8.6-10.6 L 6569651552) eGFR (test code = mL/min/1.73m2 6021990206) KYLE (test code = KYLE) Association of [...] tests). Lab Interpretation Abnormal (test code = 87175-3) [facility]07 Test Item Value Reference Range Interpretation Comments MAGNESIUM (test code = 9872241139) 1.8 mg/dL 1.7-2.4 Lab Interpretation (test code = Normal 94723-8) [facility] Test Item Value Reference Range Interpretation Comments MAGNESIUM (test code = 4447102123) 1.8 mg/dL 1.7-2.4 Lab Interpretation (test code = Normal 14691-4) [facility] METABOLIC PANEL (NA, K, CL, CO2, GLUCOSE, BUN, CREATININE, CA)2022-02-15 10:44:07 Test Item Value Reference Range Interpretation Comments NA (test code = 134 mmol/L 135-145 L 2432152221) K (test code = 3.2 mmol/L 3.5-5.0 L 1088802326) CL (test code = 98 mmol/L 98-108 4947321535) CO2 TOTAL (test code = 27 mmol/L 23-31 7339070793) AGAP (test code = 2-16 3757061224) BUN (test code = 19 mg/dL 7-23 2947275108) GLUCOSE (test code = 102 mg/dL 70-110 0183651257) CREATININE (test code = 0.95 mg/dL 0.50-1.04 1148642208) CALCIUM (test code = 8.5 mg/dL 8.6-10.6 L 5786665111) eGFR (test code = mL/min/1.73m2 5886994705) KYLE (test code = KYLE) Association of [...] tests). Lab Interpretation Abnormal (test code = 08055-9) [facility] WITH [id number] 10:12:06 Test Item Value Reference Range Interpretation Comments WBC (test code = See_Comment L [Automated 8790-2) message] The sy stem which generated this [...] RDW-SD (test code = 47.8 fL 39-49.9 61255-0) RDW-CV (test code = 15.2 % 12-15.5 788-0) PLT (test code = See_Comment L [Automated 777-3) message] The sy stem which generated this result transmitted reference range : 166 - 358 10*3/ ?L. The reference r abbey was not used to interpret this result as normal/abnormal . MPV (test code = 8.9 fL 9.5-12.9 L 99054-9) NRBC/100 WBC (test See_Comment [Automat ed code = 4417971529) message] The system which generated this result transmitted reference range : 0.0 - 10.0 /100 WBCs. The refer ence range was not u sed to interpret th is result as normal/abnormal . NRBC x10^3 (test code See_Comment [Auto mated = 4331778573) message] The s ystem which generated this result transmitted reference range : 10*3/?L. The reference range was not used to interpret this result as normal/abnormal . GRAN MAT (NEUT) % 65.9 % (test code = 770-8) IMM GRAN % (test code 0.30 % = 3696079578) LYMPH % (test code = 21.0 % 736-9) MONO % (test code = 10.1 % 5905-5) EOS % (test code = 2.4 % 713-8) BASO % (test code = 0.3 % 706-2) GRAN MAT x10^3(ANC) 2.49 10*3/uL 1.88-7.09 (test code = 2549391130) IMM GRAN x10^3 (test 0-0.06 code = 0147784240) LYMPH x10^3 (test code 0.79 10*3/uL 1.32-3.29 L = 731-0) MONO x10^3 (test code 0.38 10*3/uL 0.33-0.92 = 742-7) EOS x10^3 (test code = 0.09 10*3/uL 0.03-0.39 711-2) BASO x10^3 (test code 0.01-0.07 = 704-7) Lab Interpretation Abnormal (test code = 31707-5) [facility] WITH [id number] 10:12:06 Test Item Value Reference Range Interpretation [...] RDW-SD (test code = 47.8 fL 39.0-49.9 59157-2) RDW-CV (test code = 15.2 % 12.0-15.5 788-0) PLT (test code = See_Comment L [Automated 777-3) message] The sy stem which generated this result transmitted reference range : 166 - 358 10*3/ ?L. The reference r abbey was not used to interpret this result as normal/abnormal . MPV (test code = 8.9 fL 9.5-12.9 L 13566-4) NRBC/100 WBC (test See_Comment [Automat ed code = 1972741738) message] The system which generated this result transmitted reference range : 0.0 - 10.0 /100 WBCs. The refer ence range was not u sed to interpret th is result as normal/abnormal . NRBC x10^3 (test code See_Comment [Auto mated = 0085670165) message] The s ystem which generated this result transmitted reference range : 10*3/?L. The reference range was not used to interpret this result as normal/abnormal . GRAN MAT (NEUT) % 65.9 % (test code = 770-8) IMM GRAN % (test code 0.30 % = 6390191901) LYMPH % (test code = 21.0 % 736-9) MONO % (test code = 10.1 % 5905-5) EOS % (test code = 2.4 % 713-8) BASO % (test code = 0.3 % 706-2) GRAN MAT x10^3(ANC) 2.49 10*3/uL 1.88-7.09 (test code = 5876594423) IMM GRAN x10^3 (test 0.00-0.06 code = 9426422122) LYMPH x10^3 (test code 0.79 10*3/uL 1.32-3.29 L = 731-0) MONO x10^3 (test code 0.38 10*3/uL 0.33-0.92 = 742-7) EOS x10^3 (test code = 0.09 10*3/uL 0.03-0.39 711-2) BASO x10^3 (test code 0.01-0.07 = 704-7) Lab Interpretation Abnormal (test code = 00758-0) [facility] WITH [id number] 11:18:28 Test Item Value Reference Range Interpretation Comments WBC (test code = See_Comment L [Automated 9890-2) message] The sy stem which generated this [...] RDW-SD (test code = 49.5 fL 39-49.9 47169-2) RDW-CV (test code = 15.5 % 12-15.5 788-0) PLT (test code = See_Comment L [Automated 777-3) message] The sy stem which generated this result transmitted reference range : 166 - 358 10*3/ ?L. The reference r abbey was not used to interpret this result as normal/abnormal . MPV (test code = 11.4 fL 9.5-12.9 30148-2) IPF % (test code = 8.7 % 1.3-7.7 H Platelet count 6632679981) measured by fluorescence method. NRBC/100 WBC (test See_Comment [Automat ed code = 1481782932) message] The system which generated this result transmitted reference range : 0.0 - 10.0 /100 WBCs. The refer ence range was not u sed to interpret th is result as normal/abnormal . NRBC x10^3 (test code See_Comment [Auto mated = 0930930237) message] The s ystem which generated this result transmitted reference range : 10*3/?L. The reference range was not used to interpret this result as normal/abnormal . GRAN MAT (NEUT) % 62.0 % (test code = 770-8) IMM GRAN % (test code 0.80 % = 3745381186) LYMPH % (test code = 22.2 % 736-9) MONO % (test code = 9.6 % 5905-5) EOS % (test code = 5.1 % 713-8) BASO % (test code = 0.3 % 706-2) GRAN MAT x10^3(ANC) 2.21 10*3/uL 1.88-7.09 (test code = 6979086237) IMM GRAN x10^3 (test 0.03 10*3/uL 0-0.06 code = 3547159682) LYMPH x10^3 (test code 0.79 10*3/uL 1.32-3.29 L = 731-0) MONO x10^3 (test code 0.34 10*3/uL 0.33-0.92 = 742-7) EOS x10^3 (test code = 0.18 10*3/uL 0.03-0.39 711-2) BASO x10^3 (test code 0.01-0.07 = 704-7) POLYCHROMASIA (test 2+ See_Comment [Automa arpit code = 36410-4) message] The system which generated this result [...] . Lab Interpretation Abnormal (test code = 89954-5) [facility] (NA, K, CL, CO2, GLUCOSE, BUN, CREATININE, CA)2022-02-13 10:39:07 Test Item Value Reference Range Interpretation Comments NA (test code = 136 mmol/L 135-145 7575500018) K (test code = 4.1 mmol/L 3.5-5 2898772898) CL (test code = 102 mmol/L 98-108 2919158214) CO2 TOTAL (test code = 27 mmol/L 23-31 8717065862) AGAP (test code = 2-16 6476427592) BUN (test code = 22 mg/dL 7-23 8857427048) GLUCOSE (test code = 94 mg/dL 70-110 5292746198) CREATININE (test code = 0.94 mg/dL 0.5-1.04 0956017981) CALCIUM (test code = 8.1 mg/dL 8.6-10.6 L 0677626611) eGFR (test code = mL/min/1.73m2 1220199425) KYLE (test code = KYLE) Association of [...] tests). Lab Interpretation Abnormal (test code = 27086-3) [facility] (TTE)2022-02-12 01:50:10 Test Item Value Reference Range Interpretation Comments Height (test code = in 2377477360) Weight (test code = lbs 5992196421) Systolic BP (test code mmHg = 6915165345) Diastolic BP (test code mmHg = 4923495611) Heart Rate (test code = bpm 4138767149) BSA (test code = 1.85 m2 1356897648) IVS (test code = 1.22 cm 4261712547) Interventricular Septum 1.22 cm Diastolic Thickness by 2D (test code = 3418253) LVIDD (test code = 5.00 cm 2031328259) Left Ventricular End 117.9 mL Diastolic Volume by Teichholz Method (test code = 4904820) LVPWD (test code = 1.22 cm 6015748392) PW (test code = 1.22 cm 0.6-1.2 6055131668) EF(Teich) (test code = 74.60 % 1427101124) LVIDS (test code = 2.80 cm 4234781263) Left Ventricular End 29.9 mL Systolic Volume by Teichholz Method (test code = 2692236) FS (test code = 44 % 5218619770) EF - 2D (test code = 74.60 % 92304262) LVOT diameter (test 2.16 cm code = 3829492053) LVOT area (test code = 3.70 cm2 5239714767) Ao root diam (test code 3.40 cm = 3950916942) Aortic root (test code 3.4 cm = 0087080801) Ao root annulus (test 3.4 cm code = 8552752510) LA size (test code = 3.4 cm 0890307461) TR Peak Spencer (test code 330.0 cm/s = 0964304085) Triscuspid Valve mmHg Regurgitation Peak Gradient (test code = 4361722883) PV REGURGITATION PEAK mmHg GRADIENT (test code = 1727129958) PI dec slope (test code 137.20 cm/s2 = 1474231975) LAV(MOD-sp4) (test code 102.90 mL = 4476874676) MV Peak E Spencer (test 84.1 cm/s code = 4471842629) MV Peak A Spencer (test 40.1 cm/s code = 9711361814) E/A ratio (test code = ratio 9505666157) MV valve area p 1/2 3.70 cm2 method (test code = 4900161103) MV dec slope (test code 413.00 cm/s2 = 6760127276) MV P1/2t max spencer (test 83.70 cm/s code = 9107458984) MV Prop V (test code = 41.80 cm/s 7071700203) Tapse (test code = 1.83 cm 1230599244) LVOT stroke volume 96.90 cm3 (test code = 7804013309) LVOT peak spencer (test 125.5 cm/s code = 0897637517) LVOT mn grad (test code mmHg = 9131783271) AV LVOT peak gradient mmHg (test code = 7111430884) LVOT peak VTI (test 26.4 cm code = 2026760850) LV V1 mean (test code = 78.10 cm/s 8969203374) Aortic valve mean 103.7 cm/s velocity (test code = 3966645016) Ao peak spencer (test code 165.6 cm/s = 5354022527) Ao VTI (test code = 37.2 cm 6621940655) AV area by cont VTI 2.6 cm2 (test code = 6004903961) AV area peak spencer (test 2.8 cm2 code = 8486368749) Ao max PG (test code = 11.00 mm[Hg] 6139723831) AV peak gradient (test mmHg code = 5001694650) AV valve area (test 2.60 cm2 code = 7885375066) AV mean gradient (test mmHg code = 5738839411) LA Volume Index (BP) 55.2 mL/m2 (test code = 8321298129) LA volume (BP) (test 102.1 mL code = 2961454288) LAV(MOD-sp2) (test code 86.10 mL = 0899752848) A2C EF (test code = 61.20 % 0171694192) EF(sp2-el) (test code = 61.60 % 1795172706) SV(MOD-sp2) (test code 47.10 mL = 0777590148) LV Diastolic Volume 70.7 mL (BP) (test code = 5265149935) A4C EF (test code = 53.00 % 3987246405) EF(MOD-bp) (test code = 56.70 % 8911885912) EF(sp4-el) (test code = 53.90 % 3699066865) LV Systolic Volume (BP) 30.6 mL (test code = 1831739170) SV(MOD-bp) (test code = 40.10 mL 8761967143) SV(MOD-sp4) (test code 32.40 mL = 2515999798) SV(sp4-el) (test code = 33.10 mL 9186648096) EF (test code = 3134406082) Left Ventricular Stroke 40.1 mL Volume by 2-D Biplane-MOD (test code = 1975137) LV Diastolic Volume 38.2 mL/m2 Index (BP) (test code = 2706052097) LV Systolic Volume 16.5 mL/m2 Index (BP) (test code = 9775902121) Radiology Study observation (narrative) (test code = 01534-6) KYLE (test code = KYLE) ?Left?Ventricle: Left [...] [facility] [id number] 05:45:01 Test Item Value Reference Interpretation Comments Range TROPONIN I (test See_Comment [Automated code = 6187364589) message] The system which generated this result [...] biotin. Lab Interpretation Normal (test code = 61688-1) [facility]AL ERG-[id number] 05:41:40 Test Item Value Reference Range Interpretation Comments NT-proBNP (test code 4250 pg/mL See_Comment H [Autom ated = 2974131260) message] The system which generated this result transmitted reference range : <=125. The reference range was not used to interpret this result as normal/abnormal . KYLE (test code = KYLE) Biotin has been reported to cause a negative bias, interpret results relative to patient's use of biotin. Lab Interpretation Abnormal (test code = 99239-0) [facility] PART[facility] THRMPLAS [id number] 05:35:21 Test Item Value Reference Range Interpretation Comments APTT Patient (test See_Comment [Automat ed code = 3173-2) message] The system which generated this result transmitted reference range : 23 - 38 Seconds . The reference range was not used to interpr et this result as normal/abnormal . KYLE (test code = KYLE) The [facility] patient population mean normal value for aPTT is 30 seconds. Lab Interpretation Normal (test code = 40014-4) [facility] PART[facility] THRMPLAS [id number] 05:35:21 Test Item Value Reference Range Interpretation Comments APTT Patient (test See_Comment [Automat ed code = 3173-2) message] The system which generated this result transmitted reference range : 23 - 38 Seconds . The reference range was not used to interpr et this result as normal/abnormal . KYLE (test code = KYLE) The [facility] patient population mean normal value for aPTT is 30 seconds. Lab Interpretation Normal (test code = 63365-6) [facility]iePROTHROMBIN TIME / [id number] 05:33:21 Test Item Value Reference Range Interpretation [...] tions. Lab Interpretation (test Normal code = 76279-8) [facility]. METABOLIC PANEL (44623)2022-02-11 05:33:21 Test Item Value Reference Range Interpretation Comments NA (test code = 137 mmol/L 135-145 8899416056) K (test code = 4.3 mmol/L 3.5-5 4850385294) CL (test code = 103 mmol/L 98-108 6624796656) CO2 TOTAL (test code = 25 mmol/L 23-31 6571723467) AGAP (test code = 2-16 7523831728) BUN (test code = 19 mg/dL 7-23 9742122291) GLUCOSE (test code = 120 mg/dL 70-110 H 9362238876) CREATININE (test code = 1.15 mg/dL 0.5-1.04 H 9937453813) TOTAL BILI (test code = 0.9 mg/dL 0.1-1.0 9929481792) CALCIUM (test code = 8.9 mg/dL 8.6-10.6 0726885328) T PROTEIN (test code = 6.6 g/dL 6.3-8.2 8027673127) ALBUMIN (test code = 4.0 g/dL 3.5-5 5987698163) ALK PHOS (test code = 73 U/L 34-122 3142011989) ALTv (test code = 18 U/L 5-35 1742-6) AST(SGOT) (test code = 31 U/L 13-40 6781232027) eGFR (test code = mL/min/1.73m2 0820607595) KYLE (test code = KYLE) Association of [...] tests). Lab Interpretation Abnormal (test code = 29853-7) [facility]. METABOLIC PANEL (95721)2022-02-11 05:33:21 Test Item Value Reference Range Interpretation Comments NA (test code = 137 mmol/L 135-145 6976953442) K (test code = 4.3 mmol/L 3.5-5.0 5489344840) CL (test code = 103 mmol/L 98-108 4731307720) CO2 TOTAL (test code = 25 mmol/L 23-31 8368037787) AGAP (test code = 2-16 6493510935) BUN (test code = 19 mg/dL 7-23 1227197019) GLUCOSE (test code = 120 mg/dL 70-110 H 6589512742) CREATININE (test code = 1.15 mg/dL 0.50-1.04 H 7876456501) TOTAL BILI (test code = 0.9 mg/dL 0.1-1.1 0853669168) CALCIUM (test code = 8.9 mg/dL 8.6-10.6 0024857741) T PROTEIN (test code = 6.6 g/dL 6.3-8.2 9317345426) ALBUMIN (test code = 4.0 g/dL 3.5-5.0 7815782527) ALK PHOS (test code = 73 U/L 34-122 7441309475) ALTv (test code = 18 U/L 5-35 1742-6) AST(SGOT) (test code = 31 U/L 13-40 9454237567) eGFR (test code = mL/min/1.73m2 9747822053) KYLE (test code = KYLE) Association of [...] tests). Lab Interpretation Abnormal (test code = 22847-0) [facility]iePROTHROMBIN TIME / [id number] 05:33:21 Test Item Value Reference Range Interpretation Comments PROTIME PATIENT (test See_Comment [Auto mated message] code = 5964-2) The system [employer] ich generated this result transmitted ref erence range: 12.0 - 1 4.7 Seconds. The re ference range was not u sed to interpret this result as normal/abnor mal. INR (test code = 6301-6) Nor mal INR <1.1; Warfarin Therap eutic range 2.0 to 3. 0 or 2.5 to 3.5, dep ending upon the indica tions. Lab Interpretation (test Normal code = 56389-6) [facility]ieCBC WITH [id number] 05:14:37 Test Item Value Reference Range Interpretation [...] RDW-SD (test code = 47.9 fL 39-49.9 24723-0) RDW-CV (test code = 14.9 % 12-15.5 788-0) PLT (test code = See_Comment L [Automated 777-3) message] The sy stem which generated this result transmitted reference range : 166 - 358 10*3/ ?L. The reference r abbey was not used to interpret this result as normal/abnormal . MPV (test code = 9.1 fL 9.5-12.9 L 82538-1) NRBC/100 WBC (test See_Comment [Automat ed code = 4236693869) message] The system which generated this result transmitted reference range : 0.0 - 10.0 /100 WBCs. The refer ence range was not u sed to interpret th is result as normal/abnormal . NRBC x10^3 (test code See_Comment [Auto mated = 3736639493) message] The s ystem which generated this result transmitted reference range : 10*3/?L. The reference range was not used to interpret this result as normal/abnormal . GRAN MAT (NEUT) % 78.5 % (test code = 770-8) IMM GRAN % (test code 0.20 % = 7211417808) LYMPH % (test code = 11.6 % 736-9) MONO % (test code = 8.4 % 5905-5) EOS % (test code = 1.1 % 713-8) BASO % (test code = 0.2 % 706-2) GRAN MAT x10^3(ANC) 3.45 10*3/uL 1.88-7.09 (test code = 5485165029) IMM GRAN x10^3 (test 0-0.06 code = 9560674587) LYMPH x10^3 (test code 0.51 10*3/uL 1.32-3.29 L = 731-0) MONO x10^3 (test code 0.37 10*3/uL 0.33-0.92 = 742-7) EOS x10^3 (test code = 0.05 10*3/uL 0.03-0.39 711-2) BASO x10^3 (test code 0.01-0.07 = 704-7) Lab Interpretation Abnormal (test code = 93137-2) [facility] Coronavirus 2019 Ktdixok7868-25-75 18:08:00 Test Item Value Reference Range Interpretation [...] det ection of nucleic acids f rom slyYJWR-DgN-9 v irus and diagnosis of SA RS-CoV-2 virusinfection. It is an Emergency Use Authorization ( EUA) testauthorized by the U.S. FDA. BASIC METABOLIC [id number] 09:37:00 Test Item Value Reference Range Interpretation [...] = 9.0 mg/dL 8.0-10.5 N CA) PROTHROMBIN [id number] 09:32:00 Test Item Value Reference Range Interpretation [...] (to prevent recurrent infar ct). 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[facility] - XR CHEST 1 [id number] [facility]:00[facility] 1955 Sex: F FAX: Carmenza Kelly [phone] [place]: St: ADM FAX: Mike Scales MD [phone] FAX: Bahman Chopra [phone] Name: MARJAN FLEMING [facility] : 1955 Age/S: 66/F [address] [place] [address] Unit #: [id number] Loc: [place] [address] Phys: Bahman Chopra [facility] Acct: [id number] Dis Date: Status: ADM IN PHONE #: [phone] Exam Date: 06/17/2021 1320 FAX #: [phone] Reason: WATCHMAN EXAMS: CPT CODE: [id number] XR CHEST 1 V 17416 PROCEDURE INFORMATION: Exam: XR Chest Exam date [...] Mike Lund MD; Bahman Chopra Technologist: RT Taylro(R) Trnbob Date/Time/By: 06/17/2021 (8840) : By: Susanna Orig Print D/T: S: 06/17/2021 (0121) PAGE 1 Signed ReportCOVID 19 Asymptomatic IH [id number] 12:29:00 Test Item Value Reference Range Interpretation [...] high or waivedcomplexit y tests. BASIC METABOLIC [id number] 11:37:00 Test Item Value Reference Range Interpretation [...] code = 9.0 mg/dL 8.0-10.5 N CA) [id number] 11:37:00 Test Item Value Reference Range Interpretation Comments PREALBUMIN (test code = PREALB) 24.3 mg/dL 16.0-40.0 N PROTHROMBIN [id number] 11:03:00 Test Item Value Reference Range Interpretation [...] (to prevent recurrent infar ct). CBC W/AUTO [id number] 10:59:00 Test Item Value Reference Range Interpretation [...] 0.0-0.1 N NRBC#) - XR CHEST 2 [id number] 00:00:00 [facility] 1955 Sex: F FAX: Charlie RahmanCarmenza Francisco Kristen VARELA [phone] [place]: St: PRE FAX: Mike Scales MD [phone] Name: MARJAN FLEMING [facility] : 1955 Age/S: 66/F [address] [place] [address] Bl Unit #: [id number] Loc: [place] [address] Phys: Mike Lund MD Acct: [id number] Dis Date: Status: PRE SDC PHONE #: [phone] Exam Date: 06/16/2021 1120 FAX #: [phone] Reason: PREOP EXAMS: CPT CODE: [id number] XR CHEST 2 V 41563 PROCEDURE INFORMATION: Exam: XR Chest Exam date [...] Technologist: Danielle Nix RT(R) Trnscrd Date/Time/By: 06/16/2021 (4675) : By: [email or web address] Orig Print D/T: S: 06/16/2021 (8890) PAGE 1 Signed ReportGastrointestinal aomhs8973-35-28 04:35:05 Test Item Value Reference Interpretation Comments [...] Rotavirus PCR (test Not Detected code = 1807014) Salmonella PCR (test Not Detected code = [...] (test code = 7124) [facility] svjgdsv8704-19-42 19:30:47 Test Item Value Reference Range Interpretation Comments Case number (test [id number] code = 8154327) Surgical pathology See link below for PDF report (test code = Lab Report 2255) Result status (test This is Supplemental code = 5010253) Report for [id number] [facility]2021-04-09 16:31:00 Test Item Value Reference Range Interpretation Comments POC Activated Clotting Time (test code 153 s = POC Activated Clotting Time) [facility] CenterAwwwuluLAGMUBYLFZ7540-97-07 16:31:00 Test Item Value Reference Range Interpretation Comments POC Activated Clotting Time (test code 153 s = POC Activated Clotting Time) [facility] CenterVnyzqtiQFINMKTGYZ9574-56-14 16:31:00 Test Item Value Reference Range Interpretation Comments POC Activated Clotting Time (test code 153 s = POC Activated Clotting Time) [facility] CenterBtmcwjuGUIXCYHPSW3583-20-57 16:31:00 Test Item Value Reference Range Interpretation Comments POC Activated Clotting Time (test code 153 s = POC Activated Clotting Time) [facility] CenterBrtrtpfJWQEJTHMOV3680-35-87 16:31:00 Test Item Value Reference Range Interpretation Comments POC Activated Clotting Time (test code 153 s = POC Activated Clotting Time) [facility] CenterUbpavawOVNONIQBZC0067-32-82 16:31:00 Test Item Value Reference Range Interpretation Comments POC Activated Clotting Time (test code 153 s = POC Activated Clotting Time) [facility] CenterZwanqhfIJKNNJKSHJ1711-40-69 16:31:00 Test Item Value Reference Range Interpretation Comments POC Activated Clotting Time (test code 153 s = POC Activated Clotting Time) [facility] CenterIgtemjyZGEQXJCVKM9809-64-58 14:37:00 Test Item Value Reference Range Interpretation Comments POC Activated Clotting Time (test code 454 s = POC Activated Clotting Time) [facility] CenterWaxphtmJRCZPNUCUJ6671-29-54 14:37:00 Test Item Value Reference Range Interpretation Comments POC Activated Clotting Time (test code 454 s = POC Activated Clotting Time) [facility] CenterRliqeyqCEPFOCXRUT8566-04-12 14:37:00 Test Item Value Reference Range Interpretation Comments POC Activated Clotting Time (test code 454 s = POC Activated Clotting Time) [facility] CenterJvrwtxsBGMBODOMUC3053-59-00 14:37:00 Test Item Value Reference Range Interpretation Comments POC Activated Clotting Time (test code 454 s = POC Activated Clotting Time) [facility] CenterUzdrcsoKNPZSGFJPQ4955-74-77 14:37:00 Test Item Value Reference Range Interpretation Comments POC Activated Clotting Time (test code 454 s = POC Activated Clotting Time) [facility] CenterNarwurfFOKPQLZZQY0702-10-74 14:37:00 Test Item Value Reference Range Interpretation Comments POC Activated Clotting Time (test code 454 s = POC Activated Clotting Time) [facility] CenterXylhghiNGFUINZWNU1547-39-40 14:37:00 Test Item Value Reference Range Interpretation Comments POC Activated Clotting Time (test code 454 s = POC Activated Clotting Time) [facility] CenterKdnfdqlLWLXBPHZZI9584-33-01 14:13:00 Test Item Value Reference Range Interpretation Comments POC Activated Clotting Time (test code 354 s = POC Activated Clotting Time) [facility] CenterAndmulmOSRMXLCBFG9494-82-02 14:13:00 Test Item Value Reference Range Interpretation Comments POC Activated Clotting Time (test code 354 s = POC Activated Clotting Time) [facility] CenterJvsfropWQPADKTGOI8420-34-97 14:13:00 Test Item Value Reference Range Interpretation Comments POC Activated Clotting Time (test code 354 s = POC Activated Clotting Time) [facility] CenterNbjdhgcDUGTZOBDVT2303-94-92 14:13:00 Test Item Value Reference Range Interpretation Comments POC Activated Clotting Time (test code 354 s = POC Activated Clotting Time) [facility] CenterFpgxabeIGOEESDCRU5748-40-17 14:13:00 Test Item Value Reference Range Interpretation Comments POC Activated Clotting Time (test code 354 s = POC Activated Clotting Time) [facility] CenterMkuazpiPHHOIHSLQG4583-11-91 14:13:00 Test Item Value Reference Range Interpretation Comments POC Activated Clotting Time (test code 354 s = POC Activated Clotting Time) [facility]SogbinzKMUPRCFORH9839-06-84 14:13:00 Test Item Value Reference Range Interpretation Comments POC Activated Clotting Time (test code 354 s = POC Activated Clotting Time) [facility] BANK XMWXPTT8707-16-64 10:37:00Negative (08/29/20 5:37 AM) [facility] MGTVT9425-27-70 10:37:05840Naywzoun HermannCHEM PANEL 2020-08-29 10:37:0028[facility]annCHEM QUUCR1894-95-39 10:37:001.01[facility]annCHEM TVMFJ1433-37-69 10:37:84166Mcnxmewn HermannCHEM BKOLK2087-64-84 10:37:003.8[facility]annCHEM IDEIA1888-97-53 10:37:05309Gcjdkain HermannCHEM ULNOH7301-42-49 10:37:0028[facility]annCHEM KYCQK7288-22-99 10:37:009.8 [facility]ann[facility] SSCGL6818-85-27 10:37:0011.8[facility]annCHEM PANEL 2020-08-29 10:37:0059[facility]annCHEM XFJCT8730-21-57 10:37:002.9[facility] SeikglnNEKNVGZPLT4871-04-72 10:37:006.8[facility] QsijojiAWGWXGJGTM7169-72-21 10:37:004.47[facility] FuqqzmaJBQULBZLYA5757-47-89 10:37:0010.6[facility] AZFXSLUXJU9774-92-30 10:37:0034.0[facility] JwginhgKPUJJIDJDD4720-78-22 10:37:00 76.1[facility] PcacvyiXDIZEWTXJT0338-97-86 10:37:00 Test Item Value Reference Range Interpretation Comments MCH (test code = MCH) 23.8 pg 27.0-31.0 [facility] FdjviqqKHVXMTCWIY2464-24-30 10:37:0031.3[facility]ann[facility]MATOLOGY 2020-08-29 10:37:0018.2[facility] GxxgmytNQMOGAGJPX6897-49-53 10:37:60639Tgztftib SiqwodjCLFAWLNQNT6342-18-92 10:37:007.5[facility] YqzleytERTSZCZYDV8817-59-45 10:37:00 Test Item Value Reference Range Interpretation Comments PT (test code = PT) 12.8 s 12.0-14.7 [facility] SpzciizAZUTFUAONV0550-49-26 10:37:00 Test Item Value Reference Range Interpretation Comments INR (test code = INR) 0.97 1 0.85-1.17 [facility] YkxtqgoZQFLNSHNFQ3038-95-64 10:37:00 Test Item Value Reference Range Interpretation Comments PTT (test code = PTT) 25.0 s 22.9-35.8 [facility] NdccdnmUNCWSHTCVC8277-73-70 10:37:0070.5[facility]annHEMATOLOGY 2020-08-29 10:37:0018.8[facility] UfnycgbUOXNYVSIMH9999-07-40 10:37:009.5[facility] OuxjcioOZQZAUEACD3300-46-60 10:37:000.9[facility] VvtjavwUEJSBEQNMK9443-92-73 10:37:000.3[facility] YkooslsZFAKBINDRT5895-12-07 10:37:004.8[facility] BWMBNHUQTS3802-74-58 10:37:001.3[facility] OptyyakTDFFFCMVET0160-94-47 10:37:000.6 [facility] HfdyfmnVDQIRREXDZ3722-35-42 10:37:000.1[facility]annHEMATOLOGY 2020-08-29 10:37:001+ *ABN*(08/29/20 5:37 AM)[facility] PxghoxeHODQQTQPTQ4161-36-98 10:37:00Not Detected (08/29/20 5:37 AM)[facility] BANK RESULTS 2020-08-29 10:37:00Negative (08/29/20 5:37 AM)[facility]annCHEM WUNLW4797-35-80 10:37:40294Oeohwinq HermannCHEM GOHAO4143-92-03 10:37:0028[facility]annCHEM ZXSOF3342-55-16 10:37:001.01[facility]annCHEM GWHHO8528-56-47 10:37:51670 [facility]CHE[facility] YTCJB8598-61-85 10:37:003.8[facility]annCHEM PANEL 2020-08-29 10:37:04116Fibajxuj HermannCHEM XQSHJ9177-62-69 10:37:0028[facility]annCHEM GNXZF7015-62-93 10:37:009.8[facility]annCHEM BNHZH0876-53-78 10:37:0011.8[facility]annCHEM KQBDO6975-43-80 10:37:0059[facility]annCHEM AWLCR0034-17-19 10:37:002.9[facility] LokwijmTCQFTGNPDN5794-41-43 10:37:006.8 [facility] AemzajdAVCLCJAZKR4275-31-59 10:37:004.47[facility]annHEMATOLOGY 2020-08-29 10:37:0010.6[facility] HrtyfqjBDDZSZZRZU0920-60-03 10:37:0034.0[facility] KdiylwsOKWQNQTICJ1277-54-00 10:37:0076.1[facility] UifekjlVMOVFRRPMH0593-01-39 10:37:00 Test Item Value Reference Range Interpretation Comments MCH (test code = MCH) 23.8 pg 27.0-31.0 [facility]piQKBFOLEGYV7119-47-56 10:37:0031.3[facility]annHEMATOLOGY 2020-08-29 10:37:0018.2[facility] McxqzohVWLIPJIZLT3899-40-96 10:37:40804Iziicupd RhpimtaIAPUAHSPMY1072-74-96 10:37:007.5[facility] QtdosklTLDATSIKCM0540-04-81 10:37:00 Test Item Value Reference Range Interpretation Comments PT (test code = PT) 12.8 s 12.0-14.7 [facility] MebowgvJWNTPKLELH0963-98-52 10:37:00 Test Item Value Reference Range Interpretation Comments INR (test code = INR) 0.97 1 0.85-1.17 [facility] HospitalJazznncJHIKTXANXQ5171-65-03 10:37:00 Test Item Value Reference Range Interpretation Comments PTT (test code = PTT) 25.0 s 22.9-35.8 [facility] EnqmppbOEUOXWDEJV7733-94-09 10:37:0070.5[facility]annHEMATOLOGY 2020-08-29 10:37:0018.8[facility] RxapvggCMWWSHXSSL7705-81-92 10:37:009.5[facility] YmdjjmeWXFCRMACFR1033-01-51 10:37:000.9[facility] EeyfqbkOCLVOVKLPQ5353-10-66 10:37:000.3[facility] ArdiyudPPOSNBCUVR9842-85-50 10:37:004.8[facility] ZZCUCWYFIM6160-05-26 10:37:001.3[facility] KvzsoowPNFQZLGIGC3519-05-23 10:37:000.6 [facility] WzvrsidLVRAXHFFNJ8460-45-39 10:37:000.1[facility]annHEMATOLOGY 2020-08-29 10:37:001+ *ABN*(08/29/20 5:37 AM)[facility] UkaevxcJFAAHLIUHZ5498-84-03 10:37:00Not Detected (08/29/20 5:37 AM)[facility]annBL[facility]OD BANK RESULTS 2020-08-29 10:37:00Negative (08/29/20 5:37 AM)[facility]annCHEM OEECV6509-43-81 10:37:32003Tymhfgqz HermannCHEM FUYOO9491-47-24 10:37:0028[facility]annCHEM QIKRD5287-65-60 10:37:001.01[facility]annCHEM CPNSV2023-84-41 10:37:21526 [facility]annCHE[facility] NVTDI7854-21-60 10:37:003.8[facility] HermannCHEM PANEL 2020-08-29 10:37:52934Eruacxmk HermannCHEM PVQMM2044-60-47 10:37:0028[facility]annCHEM SMSJF6894-68-62 10:37:009.8[facility]annCHEM RAXVJ5858-52-53 10:37:0011.8[facility] HermannCHEM QRNMI2441-68-95 10:37:0059[facility]annCHEM IOARD4084-50-59 10:37:002.9[facility] BfwpiqrEULEXNSBYR8033-76-40 10:37:006.8 [facility] BybrpuaUYTKWVSRXT2424-51-32 10:37:004.47[facility]annHEMATOLOGY 2020-08-29 10:37:0010.6[facility] AuvhyhxEXPGDHBPYP0216-98-18 10:37:0034.0[facility] PjsmpajHSWXDSOIWW9634-12-02 10:37:0076.1[facility] KjdnsbaDHGSRLIKQU6937-91-11 10:37:00 Test Item Value Reference Range Interpretation Comments MCH (test code = MCH) 23.8 pg 27.0-31.0 [facility] QqqofmjESZUNIWVMC2404-18-81 10:37:0031.3[facility]annHEMATOLOGY 2020-08-29 10:37:0018.2[facility] GvjxonfHRPQTSHCXS8750-52-50 10:37:86801Jpofvjop SuyvznbQSWLEVDDBF7818-35-31 10:37:007.5[facility] LpgocgtMFZHZJTUZB3711-93-70 10:37:00 Test Item Value Reference Range Interpretation Comments PT (test code = PT) 12.8 s 12.0-14.7 [facility] BjapaxrNQRPPJMNBT9033-96-50 10:37:00 Test Item Value Reference Range Interpretation Comments INR (test code = INR) 0.97 1 0.85-1.17 [facility] XoeziacLKCEULUFPC1041-44-35 10:37:00 Test Item Value Reference Range Interpretation Comments PTT (test code = PTT) 25.0 s 22.9-35.8 [facility] OflbabqBYNLCNEGTP8189-65-69 10:37:0070.5[facility]annHEMATOLOGY 2020-08-29 10:37:0018.8[facility] ChvlvhvRETJPXVCGX9228-95-76 10:37:009.5[facility] TgbnfnwLXKBDITTMD5927-86-94 10:37:000.9[facility] JtwffcdYDXUGTVYTJ2433-25-54 10:37:000.3[facility] UoshpprNTQBWEOETH8077-15-08 10:37:004.8[facility] UODVFYKHOG2477-23-82 10:37:001.3[facility] BlwkgwdBSSTIVNZFH3244-77-39 10:37:000.6 [facility] PdhuoaoONJSFPUEQH7089-12-81 10:37:000.1[facility]annHEMATOLOGY 2020-08-29 10:37:001+ *ABN*(08/29/20 5:37 AM)[facility] RlcucepLKWJKDJAUP2007-33-71 10:37:00Not Detected (08/29/20 5:37 AM)[facility]annBLOOD BANK RESULTS 2020-08-29 10:37:00Negative (08/29/20 5:37 AM)[facility] HermannCHEM YIBDR5983-46-85 10:37:86900Nihshban HermannCHEM KHKWT7006-46-16 10:37:0028[facility] HermannCHEM DDRFE9715-25-42 10:37:001.01[facility] HermannCHEM NUPZQ7680-10-90 10:37:75364 [facility]annCHEM NGZFF6596-23-99 10:37:003.8[facility] HermannCHEM PANEL 2020-08-29 10:37:11865Kxxzgkyu HermannCHEM TEEYW3640-29-21 10:37:0028[facility] HermannCHEM MPPVA0319-70-90 10:37:009.8[facility] HermannCHEM IALGW4242-26-39 10:37:0011.8[facility] HermannCHEM OKEXW3635-49-12 10:37:0059[facility]annCHEM LVKRA3683-34-40 10:37:002.9[facility] VlzqeqvKGABSGMLGX0923-39-09 10:37:006.8 [facility] UjiikcvXLRXRVBDZF2601-48-84 10:37:004.47[facility]annHEMATOLOGY 2020-08-29 10:37:0010.6[facility] CjfplnoOXBQRGLNNC7170-75-92 10:37:0034.0[facility] PsiovzpCKXTPEHGPC7128-02-21 10:37:0076.1[facility] EbkooktGKYRIMHEGY0836-68-35 10:37:00 Test Item Value Reference Range Interpretation Comments MCH (test code = MCH) 23.8 pg 27.0-31.0 [facility] FxkkcqcLWBPTKGEDM1193-88-55 10:37:0031.3[facility]annHEMATOLOGY 2020-08-29 10:37:0018.2[facility] ZidmtksXFETLTFHWG5799-04-18 10:37:48861Hifafjqs YcpzwgcWAZPAGKADA5794-67-74 10:37:007.5[facility] CxokqzuYFCJWFKQMD7599-52-32 10:37:00 Test Item Value Reference Range Interpretation Comments PT (test code = PT) 12.8 s 12.0-14.7 [facility] IwumdfrOOHWHXLMSM4006-12-27 10:37:00 Test Item Value Reference Range Interpretation Comments INR (test code = INR) 0.97 1 0.85-1.17 [facility] IhuqednZHPNFVPFGN3238-20-05 10:37:00 Test Item Value Reference Range Interpretation Comments PTT (test code = PTT) 25.0 s 22.9-35.8 [facility] IeiigodMKIPYTLYSO0932-62-12 10:37:0070.5[facility]annHEMATOLOGY 2020-08-29 10:37:0018.8[facility] LjgkmoyJCYIIKILTC1997-21-57 10:37:009.5[facility] FoqnpdlYWTCRZADGN7006-98-15 10:37:000.9[facility] MpyaknbUAKLJRHNXX0402-40-27 10:37:000.3[facility] EypmjuzEICIAZWGDZ4546-93-90 10:37:004.8[facility] RTLYQTUDRP0961-35-00 10:37:001.3[facility] SxkimdlNSBBFTPFOO8063-81-37 10:37:000.6 [facility] ImaksnuFCWJOGBDWR6229-76-39 10:37:000.1[facility]annHEMATOLOGY 2020-08-29 10:37:001+ *ABN*(08/29/20 5:37 AM)[facility] KaaeawiJVNWBHMVYH4087-42-28 10:37:00Not Detected (08/29/20 5:37 AM)[facility]annBLOOD BANK RESULTS 2020-08-29 10:37:00Negative (08/29/20 5:37 AM)[facility] HermannCHEM FROQN1756-49-85 10:37:84607Pxsegvxs HermannCHEM IIKDT1069-23-47 10:37:0028[facility] HermannCHEM QALZY2763-77-43 10:37:001.01[facility] HermannCHEM ZSNGK3393-06-29 10:37:21856 [facility]annCHEM LXQUB5526-17-23 10:37:003.8[facility] HermannCHEM PANEL 2020-08-29 10:37:74831Txrefdgz HermannCHEM CQXTN9721-18-31 10:37:0028[facility] HermannCHEM UGQVF1290-34-45 10:37:009.8[facility] HermannCHEM XSVIR9338-41-20 10:37:0011.8[facility] HermannCHEM XNTJQ0495-34-46 10:37:0059[facility]annCHEM UOCTL6241-28-73 10:37:002.9[facility] RtjznwbLAMGDRKNGV2085-18-20 10:37:006.8 [facility] KjpsiyqUYYCQXBUJD4386-05-92 10:37:004.47[facility]annHEMATOLOGY 2020-08-29 10:37:0010.6[facility] MaqbfxvZUUVJXZMEL1017-36-41 10:37:0034.0[facility] RyereugAETRALHFBV8572-29-10 10:37:0076.1[facility] GczchgpQXIALEBSVC1847-46-79 10:37:00 Test Item Value Reference Range Interpretation Comments MCH (test code = MCH) 23.8 pg 27.0-31.0 [facility] SrilkppGGMNACIXAF3190-99-32 10:37:0031.3[facility]annHEMATOLOGY 2020-08-29 10:37:0018.2[facility] UammichCQALVPHFIS6738-18-86 10:37:76981Bnlzaahc UoxgchsKQDHSWSVFI6104-99-25 10:37:007.5[facility] GvskjahGPTAMVFILV4530-28-31 10:37:00 Test Item Value Reference Range Interpretation Comments PT (test code = PT) 12.8 s 12.0-14.7 [facility] WhibnbtFNNWFFMWOG6285-04-59 10:37:00 Test Item Value Reference Range Interpretation Comments INR (test code = INR) 0.97 1 0.85-1.17 [facility] OntlvvmCFKSMBVSIO1193-70-35 10:37:00 Test Item Value Reference Range Interpretation Comments PTT (test code = PTT) 25.0 s 22.9-35.8 [facility] ZidaukhQDBHOSTVWO8649-43-23 10:37:0070.5[facility]annHEMATOLOGY 2020-08-29 10:37:0018.8[facility] RgrbdmnJXCUXNTKVN4074-95-11 10:37:009.5[facility] CzdduvbKXVSJWWOAN1289-60-29 10:37:000.9[facility] KwsknhrWNFLQMJEEP2691-07-88 10:37:000.3[facility] ErodvipDYRCUMKYUT7726-78-73 10:37:004.8[facility] NRDVVGWBQC0074-32-39 10:37:001.3[facility] JiffzqxUMEWGEDUJN1441-62-85 10:37:000.6 [facility] IruyjvlWMDHSKIQTN4789-32-30 10:37:000.1[facility]annHEMATOLOGY 2020-08-29 10:37:001+ *ABN*(08/29/20 5:37 AM)[facility] QytgzjyMCSMYCGTIN0238-38-53 10:37:00Not Detected (08/29/20 5:37 AM)[facility]annBLOOD BANK RESULTS 2020-08-29 10:37:00Negative (08/29/20 5:37 AM)[facility] HermannCHEM QEVYE8326-50-39 10:37:37077Yizwyjzf HermannCHEM HSRJH9425-66-66 10:37:0028[facility] HermannCHEM QOALQ1761-82-70 10:37:001.01[facility] HermannCHEM LAFUN1835-83-37 10:37:63564 [facility]annCHEM KMUDH6174-39-31 10:37:003.8[facility] HermannCHEM PANEL 2020-08-29 10:37:57153Vnglyswg HermannCHEM JZDDF8532-52-61 10:37:0028[facility] HermannCHEM LKUXT7356-74-87 10:37:009.8[facility] HermannCHEM ZRIGS7930-56-91 10:37:0011.8[facility] HermannCHEM ABMWP9466-30-76 10:37:0059[facility] HermannCHEM CMUYA3657-17-62 10:37:002.9[facility] IavabjxZCAHHGFLHN5565-53-09 10:37:006.8 [facility] QueavrdTWEKZYALLU3638-50-17 10:37:004.47[facility]annHEMATOLOGY 2020-08-29 10:37:0010.6[facility] JcymlibMGWBFNGZPQ7620-02-35 10:37:0034.0[facility] NuafzjwPILNGDUAGB9370-39-23 10:37:0076.1[facility] JwqnoilEWVNUCFDVU4003-94-86 10:37:00 Test Item Value Reference Range Interpretation Comments MCH (test code = MCH) 23.8 pg 27.0-31.0 [facility] MauunoxXEQVIJCRNY2334-60-82 10:37:0031.3[facility]annHEMATOLOGY 2020-08-29 10:37:0018.2[facility] QwhnzxjMGVAUFXKJG3337-45-74 10:37:46670Pvhjocmc EcyomwsZYIDBNRLKN5766-16-07 10:37:007.5[facility] AymniwnSJECDLJBIR2840-41-43 10:37:00 Test Item Value Reference Range Interpretation Comments PT (test code = PT) 12.8 s 12.0-14.7 [facility] UuodyhcOWEBPDNRGO0669-82-32 10:37:00 Test Item Value Reference Range Interpretation Comments INR (test code = INR) 0.97 1 0.85-1.17 [facility] VuqhoahGSGIQZSALG5718-17-59 10:37:00 Test Item Value Reference Range Interpretation Comments PTT (test code = PTT) 25.0 s 22.9-35.8 [facility] VqxufscLHOAFCCLCW6564-70-68 10:37:0070.5[facility]annHEMATOLOGY 2020-08-29 10:37:0018.8[facility] GdyxrbbYRERGAIPYB2221-03-37 10:37:009.5[facility] EmeundqPWATSMWWUH5967-05-72 10:37:000.9[facility] KreledtVFUDUMQFND7773-71-25 10:37:000.3[facility] PbzbaccSOAAXSFRDI0437-88-85 10:37:004.8[facility] JEBFSJLUMU0474-26-05 10:37:001.3[facility] TsesbxgXNQZVCDESX9151-97-81 10:37:000.6 [facility] TdxwrafHLKRUPYMKS9170-69-22 10:37:000.1[facility]annHEMATOLOGY 2020-08-29 10:37:001+ *ABN*(08/29/20 5:37 AM)[facility] NgvlznwPTSUHYNBWK3728-43-65 10:37:00Not Detected (08/29/20 5:37 AM)[facility]annBLOOD BANK RESULTS 2020-08-29 10:37:00Negative (08/29/20 5:37 AM)[facility] HermannCHEM ZGWIY1036-40-53 10:37:96172Ksfvpmvw HermannCHEM VMSSU2204-20-62 10:37:0028[facility] HermannCHEM JQHJX5896-42-33 10:37:001.01[facility] HermannCHEM CDHCV1155-91-35 10:37:97055 [facility]annCHEM RGBSO3137-20-59 10:37:003.8[facility] HermannCHEM PANEL 2020-08-29 10:37:67236Kyaynrgf HermannCHEM EHOFO7877-48-07 10:37:0028[facility] HermannCHEM SGBMN4601-84-83 10:37:009.8[facility] HermannCHEM CHPSG9530-08-56 10:37:0011.8[facility] HermannCHEM STRKP6050-05-91 10:37:0059[facility] HermannCHEM ASWXW1449-62-09 10:37:002.9[facility] FkvxfwkBUIFITWWBF5671-58-66 10:37:006.8 [facility] QnnqnqkFDOSSOOPHW5626-20-42 10:37:004.47[facility]annHEMATOLOGY 2020-08-29 10:37:0010.6[facility] BwmdqagHBQVGLFWDO4642-22-76 10:37:0034.0[facility] EwycexfSGLEEISMRJ4037-20-32 10:37:0076.1[facility] FfgtwdmUMZMUVEJNX0741-91-88 10:37:00 Test Item Value Reference Range Interpretation Comments MCH (test code = MCH) 23.8 pg 27.0-31.0 [facility] AetfxjfMYLATYODWR4571-53-41 10:37:0031.3[facility]annHEMATOLOGY 2020-08-29 10:37:0018.2[facility] XsjrhktUWNTBWSEHK9156-34-79 10:37:47786Nnkfysdb FgszttxAEQEAMOZZT8539-74-20 10:37:007.5[facility] OxcexrlUPAQWKQCBQ4066-75-86 10:37:00 Test Item Value Reference Range Interpretation Comments PT (test code = PT) 12.8 s 12.0-14.7 [facility] NqbzucoLUYTNAEOTQ6884-05-57 10:37:00 Test Item Value Reference Range Interpretation Comments INR (test code = INR) 0.97 1 0.85-1.17 [facility] WmocjzzBXDGZFMJIZ2528-23-19 10:37:00 Test Item Value Reference Range Interpretation Comments PTT (test code = PTT) 25.0 s 22.9-35.8 [facility] BmwsbdnHRJGRRTDAZ4324-00-70 10:37:0070.5[facility]annHEMATOLOGY 2020-08-29 10:37:0018.8[facility] NbzmzeiOLUJZDSCRI5312-63-04 10:37:009.5[facility] TytrceyKXJJNKSYOV9392-03-09 10:37:000.9[facility] ZhvytwoWPBNSTDRZH3951-09-97 10:37:000.3[facility] DkyxqlvVDFRFTEPKR4252-92-94 10:37:004.8[facility] QKIRPZAACW4809-49-72 10:37:001.3[facility] OgjacxoOJPCIINPZJ6863-23-73 10:37:000.6 [facility] DzjdtpmRMNHMQOUJA8861-13-96 10:37:000.1[facility]annHEMATOLOGY 2020-08-29 10:37:001+ *ABN*(08/29/20 5:37 AM)[facility] SwzuykxRBTIZIFGOG6796-69-92 10:37:00Not Detected (08/29/20 5:37 AM)[facility] HermannCHLAMYDIA, GC, TV,PCR, IN DEGNO8098-46-76 15:38:00 Test Item Value Reference Range Interpretation Comments FT (test code = CHTR) Not detected (qualifier Not Detected N value) FT (test code = Not detected (qualifier Not Detected N NGONO) value) FT (test code = TRVG) Not detected (qualifier Not Detected N value) [facility] UWXJPTKVRRH4838-[facility] 10:57:00 Test Item Value Reference Range Interpretation Comments Color (test code = UCOLR) Dk. Yellow Clarity (test code = UCLAR) Hazy Glucose (test code = UGLUC) NEGATIVE NEGATIVE N Bilirubin (test code = UBILI) NEGATIVE NEGATIVE N Ketones (test code = UKET) NEGATIVE NEGATIVE N Specific Le[place] (test code = 1.025 1.005-1.030 A USPGR) [...] None Seen None Seen N URCRYS) [facility] Notes Date/Time Note Provider Source 2023-01-27 Formatting of this note might be differe nt from the original. Tatyana Hill RN [facility] 18:59:00-00:00 Pt given printed and verbal discharge instructions regarding abdominal pain and gastroenteritis, encouraged hydration. Prescriptions provided. Pt verbalized understanding of instructions, pt awake alert oriented, resp reg unlabored, skin w/d, color appropriate for race, moves all ext well, pt encouraged to follow up with pcp. Advised to seek medical attention for new/prolon ged/worsening of symptoms. Symptoms addressed. No adverse reaction to meds given in ER noted up on discharge. PIV d'cd, dressing to site, catheter intact. Pt leaving amb with steady gait, in no apparent distress. Left with . 2023-01-27 [facility] 16:20:34-00:00 Nurse Report Report given to ASHLEY Gandhi. C hief complaint, assessment findings, and orders reviewed. Plan of care discussed with both nurses. Tatyana Hill RN 2023-01-27 Formatting of this note might be differe nt from the original. Reba Nino RN [facility] 10:45:37-00:00 Pt arrived via [facility] with c/o abd pain and vomiting. Received zofran 4mg IM by ems. T 2023-01-17 [facility] 09:44:10-00:00 Marjan Dean is a 67 year old female pt called requesting refill for raltegravir (ISENTRESS) 400 mg tablet emtricitabine-tenofovir alafen (DESCOVY) tablet Please advise [id number] [place] [address] [address] [facility] [employer] Electronically signed by Mena Olivarez at 9:46 AM CDT 2021-08-05 [id number] [facility] 14:08:00-00:[address] [place] [address] PATIENT NAME: MARJAN FLEMING ADMIT DATE: 08/05/21 ACCOUNT NO: [id number] ROOM NO: AGE: 66 REPORT TYPE: eTRANSESOPHAGEAL ECHO REPORT SEX: F ADMITTING PHYSICIAN: ATTENDING PHYSICIAN:Mike Lund MD *[facility]* [address] [place] [address] Transesophageal Echocardiogram Patient: Marjan Fleming Study Date: 08/05/2021 BP: 158 / 92 Location: [place] CCL URN: [id number] : 1955 Age: 66 Height: / Gender: F Weight: / BMI/BSA: / *Ordering Physician: * Mike Lund *Interpreting Physician: * Ashely Mckeon MD *Lsat Instructor: * Odessa Interiano Indications: POST WATCHMAN. Study [...] benzocaine spray. A transesophageal probe (SN: [id number]) was inserted by the attending insole doubler without difficulty. L ocation: CV PREP. Patient [...] benzocaine spray. A transeso phageal probe (SN: [id number]) was inserted by the attending cardiolog ist [...] 1408 PATIENT NAME: MARJAN FLEMING 1 2021-06-24 [id number] [facility] 11:18:00-00:[address] [place] [address] PATIENT NAME: MARJAN FLEMING ADMIT DATE: 06/17/21 ACCOUNT NO: [id number] ROOM NO: ADDIS AGE: 66 REPORT TYPE: eTRANSESOPHAGEAL ECHO REPORT SEX: F ADMITTING PHYSICIAN:Mike Lund MD ATTENDING PHYSICIAN:Mike Lund MD *[address] [address] Transesophageal Echocardiogram for [employer] Patient: Marjan Fleming Study Date: 06/17/2021 BP: Location: [facility] URN: [id number] : 1955 Age: 66 Height: / [...] setup: The patient was brought to the [facility] in the fasting state.Intravenous access was obtained. Surface E CG leads, blood pressure measurements, and pulse oximetric signals were m onitored. Sedation. Sedation was administered by anesthesiology samreen rodas. Transesophageal echocardiography was performed. A transesophagea l probe was inserted by the anesthesiologist. Images were obtained using a [email or web address] cardiac ultrasound machine. Location: Catheterization laboratory. Isreal woodruff completion: The patient tolerated the procedure well. There were no complications. Findings Conclusions Summary: PATIENT NAME: MARJAN FLEMING 48 1. Study data: Transesophageal Echocardiogram fo r Watchman. 2. Procedure narrative: Transesophageal echocard iography was performed. A transesophageal probe was inserted by the [facility] sthesiologist. Images were obtained using a [email or web address] cardiac ultrasound mac dalton. Impressions: Patient with [...] stable. Right groin suture removed by this METAL WINDOW SCREEN ASSEMBLER. No infect ion, bleeding, or hematoma. Dermabond applied and intact. Patient was provided with post-Watchman discharg e instructions. Patient is to follow up with PCP and insole doubler in 1 t o 2 weeks post discharge. Patient is to follow up with insole doubler for th e 45-day WESLEY, and for anticoagulation recommendation. Prepared and electronically signed by Ashely Mckeon MD 06/24/2021 11:18 Electronically Signed by Mike Lund MD on at 1118 PATIENT NAME: MARJAN FLEMING 7 2021-06-17 [id number] [facility] 18:10:00-00:[address] [place] [address]. [place] [address] PATIENT NAME: MARJAN FLEMING ADMIT DATE: 06/17/21 ACCOUNT NO: [id number] ROOM NO: ADDIS AGE: 66 REPORT TYPE: eECHOCARDIOGRAM REPORT SEX: F ADMITTING PHYSICIAN:Mike Lund MD ATTENDING PHYSICIAN:Mike Lund MD *[facility]* [address] [place], [place] [id number] Limited Transthoracic Echocardiogram Patient: Marjan Fleming Study Date: 06/17/2021 BP: 117 / 82 Location: [facility] URN: [id number] 2647 : 1955 Age: 66 Height: 64 in / 162.6 cm Gender: F Weight: 210 lb / 95.5 kg BMI/BSA: 36.1 kg/m 2 / 2.12 m 2 *Ordering Physician: * Bahmna Chopra *Interpreting Physician: * Kevin Merino MD *Lsat Instructor: * Tiarra Loja Indications: Post Watchman/Rule out pericardial effusion. Study data: Transthoracic echocardiogram, limite d study. Procedure: Transthoracic echocardiography was performed. age quality was adequate. Limited 2D and limited spectral Dopple r. Location: [facility]. Patient status: Outpatient. Study status: Routin [...] 1810 PATIENT NAME: MARJAN FLEMING 7 2021-06-17 [facility] 11:12:00-00:00 [facility] ([facility]) Discharge Summary REPORT#:[id number] REPORT STATUS: Signed DATE:06/17/21 TIME: 111 PATIENT: MARJAN FLEMING UNIT #: [id number] [facility] AGE: 67 SEX: F ATTEND: René Lund MD ADM AUTHOR: Bahman Chopra * ALL edits or amendments must be made on the el Active [employer]/computer document * PCP PCP Discharge to: home [...] stable. Right groin suture removed by this METAL WINDOW SCREEN ASSEMBLER. No infect ion, bleeding, or hematoma. Dermabond applied and intact. Patient was provided with post-Watchman discharg e instructions. Patient is to follow up with PCP and insole doubler in 1 to 2 we eks post discharge. Patient is to follow up with insole doubler for th e 45-day WESLEY, and for [...] breath, lightheadedness, or dizzi ness to the insole doubler. Dispo: It is medically necessary that patients [...] distress GI: soft, non-tender Extremities: moves all Neuro/SKATE SHOP ATTENDANT: alert, oriented X 3 Skin: dry Wound/incision: Location: Right groin suture removed by this METAL WINDOW SCREEN ASSEMBLER. No infect ion, bleeding, or hematoma. Dermabond applied and intact. Results Findings/Data: Laboratory Tests: 06/17 06/16 0834 1200 Coagulation Activated Coag Time (74 - 137 SEC) 249 H Serology SARS-CoV-2 Ag (Rapid) (Negative) Negative Treatments Procedures Imaging: Recent Impressions: RADIOLOGY - XR CHEST 2 V 06/16 1120 Report Impression - Status: SIGNED Entered: 06/16/2021 1135 IMPRESSION: No acute cardiopulmonary findings Impression By: [email or web address] Bibiana Collins D.O. Discharge Instructions PCP PCP: [...] Lund MD on 07/14 at 0946 RPT #:[id number] END OF REPORT 2021-06-17 [id number] [facility] 09:43:00-00:[address] [place] [id number] PATIENT NAME: MARJAN FLEMING ADMIT DATE: 06/17/21 ACCOUNT NO: [id number] ROOM NO: [facility] AGE: 66 REPORT TYPE: eELECTROCARDIOGRAM REPORT SEX: F ADMITTING PHYSICIAN:Mike Lund MD ATTENDING PHYSICIAN:Mike Lund MD Order: [id number] Test Reason : S/P WATCHMAN Test Date/Time [...] abnormality Prolonged QT Abnormal ECG Confirmed by SLUSKY MD, ARMANDO ([id number]) on 06/17/19 6:07:19 PM Referred By: Mike Lund Confirmed by:ARMANDO RICHARDS MD at 1807 PATIENT NAME: MARJAN FLEMING 7 2021-06-17 [id number] [facility] 08:54:00-00:[address] [place], [place] [id number] PATIENT NAME: MARJAN FLEMING ADMIT DATE: 06/17/21 ACCOUNT NO: [id number] ROOM NO: [facility] AGE: 66 REPORT TYPE: CARDIAC CATHETERIZATION REPORT SEX: F ADMITTING PHYSICIAN:Mike Lund MD ATTENDING PHYSICIAN:Mike Lund MD PROCEDURE DATE: 06/17/2021 PROCEDURE PERFORMED: Left atrial appendage closu re using a 24 mm Watchman FLX closure device. ACCESS: Right femoral vein, 16-Lebanese closed wit h [id number] suture. FLIGHT READINESS TECHNICIAN: Mike Lund MD. SECONDARY CURRICULUM DEVELOPER: Kevin Merino MD. COMPLICATIONS: None. BLEEDING: [...] I accessed right femo ral vein, placed 8-Lebanese [place] sheath. Subsequently, upgraded to 16-Lebanese sheath and gave a partial dose of heparin, then took the SL1 sheat h into the SVC over a wire with Lyman needle inside, descended under the fluor oscopy [...] I removed the Watchman sheath and the 16-Lebanese sheath and placed rqyuzh-zb-[id number] suture for hemostasis, then achieved a good hemo stasis. CONCLUSION: Left atrial appendage closure using a 24 mm Watchman FLX closure PATIENT NAME: MARJAN FLEMING 7 device. Dictated By: Mike Lund MD WT: CATH:GAYLE/RIKY/ALLA Conf#: [id number]/DID#: [id number] Authenticated by Mike Lund MD On 07/01/2021 12:30:01 PM Electronically Signed by Mike Lund MD on at 1230 PATIENT NAME: MARJAN FLEMING 7 2021-06-16 [id number] [facility] 10:36:00-00:[address] [place] [id number] PATIENT NAME: MARJAN FLEMING ADMIT DATE: ACCOUNT NO: [id number] ROOM NO: AGE: 66 REPORT TYPE: eELECTROCARDIOGRAM REPORT SEX: F ADMITTING PHYSICIAN: ATTENDING PHYSICIAN:Mike Lund MD Order: [id number] Test Reason : PREOP Test Date/Time Stamp: [...] AM Referred By: Mike Lund Confirmed by:ARMANDO FISHER MD at 1129 PATIENT NAME: MARJAN FLEMING 7"
[2023-02-04] MEDS ORDERED: KETOROLAC 30 MG/ML INJ ONE (20:32)
[2023-02-04] MEDS ORDERED: PROMETHAZINE INJ 25 MG/ML AMP ONE (20:32)
[2023-02-04 20:50] LABS: Absolute Lymphocytes (CBC) 0.7 K/uL (0.7-4.9); Hematocrit 30.3 % (36.0-45.0); Lymphocytes % 15.7 % (15.3-44.8); MCV 79.6 fL (80-100); MPV 7.2 fL (7.6-11.3); Platelets 121 thou/uL (152-406); RBC Red Blood Cell Count 3.81 M/uL (3.86-4.86)
[2023-02-04 21:07] LABS: Albumin 3.4 g/dL (3.4-5.0); Bilirubin Total 0.5 mg/dL (0.2-1.0); Potassium 3.4 mEq/L (3.5-5.1)
[2023-02-04 21:07] LABS: Specific Gravity 1.019 (1.005-1.030); Urine Bacteria None Seen /HPF (<20); Urine Bilirubin NEGATIVE (Negative); Urine Blood Negative (Negative); Urine Clarity Clear (Clear); Urine Color Light-Yellow (Yellow); Urine Glucose NEGATIVE (Negative); Urine Mucus Slight /HPF (None Seen); Urine Protein 1+ (Negative); Urine RBC <5 /HPF (None Seen); Urine Urobilinogen Normal (Normal); Urine pH 5.5 (5.0-7.0)
[2023-02-04] MEDS ORDERED: POTASSIUM 25 MEQ EFFERV TAB ONE (22:03)
--- NOTE | 2023-02-04 22:06 | RAD REPORT ---
EXAM DESCRIPTION: RAD - Abdomen Acute Series - 02/04/2023 10:00 pm CLINICAL HISTORY: Abdominal pain FINDINGS: Lungs appear clear of acute infiltrate. Heart is moderately enlarged. Free air is not seen beneath the diaphragm. The bowel gas pattern is unremarkable
[2023-02-04] MEDS ORDERED: NA CHLORIDE 0.9% 500 ML ONE (23:05)
[2023-02-04] MEDS ORDERED: ONDANSETRON 4 MG/2 ML VIAL ONE (23:05)
--- NOTE | 2023-02-04 23:29 | EDPHYS ---
Physician Documentation [facility] Name: Marjan Kolb Age: 68 yrs Sex: Female : 1955 Arrival Date: 02/04/2023 Time: 19:23 Bed 16 Private MD: ED Physician Jose Shah HPI: 02/04 20:10 This 68 yrs old Female presents to ER via EMS with complaints of Abdominal Pain. cp 20:10 The patient presents with abdominal pain in the lower abdomen. cp 20:10 Onset: The symptoms/episode began/occurred today. cp 20:10 The symptoms do not radiate. Associated signs and symptoms: Pertinent positives: nausea cp and vomiting, Pertinent negatives: anorexia, blood in stools, chest pain, constipation, diarrhea, fever, vomiting blood. The symptoms are described as constant. Severity of pain: in the emergency department the pain is unchanged despite home interventions. Historical: - Allergies: 19:28 Azithromycin; mb9 19:28 Bactrim; mb9 19:28 butorphanol; mb9 19:28 Fentanyl; mb9 19:28 Reglan; mb9 19:28 Sulfa (Sulfonamide Antibiotics); mb9 19:28 TRIMETHOPRIM; mb9 - PMHx: 19:28 angina pectoris; Anxiety; Atrial fibrillation; Bipolar disorder; esophageal varicies; mb9 Hepatitis; HIV positive; Hypertensive disorder; Migraine; panic attack; - Immunization history:: Adult Immunizations up to date. - Social history:: Smoking status: Patient reports the use of cigarette tobacco products, smokes one pack cigarettes per day. ROS: 20:20 Constitutional: Negative for body aches, chills, fever, poor PO intake. cp 20:20 Eyes: Negative for injury, pain, redness, and discharge. cp 20:20 ENT: Negative for drainage from ear(s), ear pain, sore throat, difficulty swallowing, difficulty handling secretions. 20:20 Cardiovascular: Negative for chest pain, palpitations. 20:20 Respiratory: Negative for cough, shortness of breath, wheezing. 20:20 Abdomen/GI: Positive for abdominal pain, nausea and vomiting, of the right lower quadrant and left lower quadrant, Negative for diarrhea, constipation, hematemesis. 20:20 Back: Negative for pain at rest, pain with movement. 20:20 : Negative for urinary symptoms, hematuria, flank pain. 20:20 Skin: Positive for rash, of the underside of right breast. 20:20 Neuro: Negative for altered mental status, dizziness, headache, weakness. 20:20 All other systems are negative. Exam: 20:25 Constitutional: The patient appears in no acute distress, alert, awake, cp non-diaphoretic, non-toxic, well developed, well nourished, obese. 20:25 Head/Face: Normocephalic, atraumatic. cp 20:25 Eyes: Periorbital structures: appear normal, Conjunctiva: normal, no exudate, no injection, Sclera: no appreciated abnormality, Lids and lashes: appear normal, bilaterally. 20:25 ENT: External ear(s): are unremarkable, Nose: is normal, Mouth: Lips: moist, Oral mucosa: pink and intact, moist, Posterior pharynx: is normal, airway is patent, no erythema, no exudate. 20:25 Neck: External neck: is normal, ROM/movement: is normal, is supple, without pain, no range of motions limitations. 20:25 Chest/axilla: Inspection: normal. 20:25 Cardiovascular: Rate: normal, Rhythm: regular. 20:25 Respiratory: the patient does not display signs of respiratory distress, Respirations: normal, no use of accessory muscles, no retractions, labored breathing, is not present, Breath sounds: are clear throughout, no decreased breath sounds, no stridor. 20:25 Abdomen/GI: Inspection: abdomen appears normal, Bowel sounds: active, all quadrants, Palpation: soft, in all quadrants, mild abdominal tenderness, in the right lower quadrant and left lower quadrant, rebound tenderness, is not appreciated, involuntary guarding, is not appreciated. 20:25 Back: pain, is absent, ROM is normal. 20:25 Skin: rash can be described as erythematous, papular, on the underside of right breast. Vital Signs: 19:25 BP 173 / 54; Pulse 67; Resp 18; Temp 97.1; Pulse Ox 100% on R/A; Weight 83.91 kg; mb9 Height 5 ft. 5 in. ; 21:30 BP 166 / 72; Pulse 74; Resp 20 S; Pulse Ox 100% on 2 lpm NC; ha1 22:30 BP 167 / 95; Pulse 74; Resp 18 S; Pulse Ox 100% on 2 lpm NC; ha1 23:30 BP 166 / 98; Pulse 75; Resp 18 S; Pulse Ox 100% on 2 lpm NC; ha1 19:25 Body Mass Index 30.79 (83.91 kg, 165.1 cm) mb9 MDM: 19:33 Patient medically screened. cp 23:28 Data reviewed: vital signs, nurses notes, lab test result(s), radiologic studies, plain cp films. 23:28 Consideration of Admission/Observation Escalation of care including cp admission/observation considered. I considered the following discharge prescriptions or medication management in the emergency department Medications were administered in the Emergency Department. See MAR. Counseling: I had a detailed discussion with the patient and/or guardian regarding the historical points, exam findings, and any diagnostic results supporting the discharge/admit diagnosis, lab results, radiology results, to return to the emergency department if symptoms worsen or persist or if there are any questions or concerns that arise at home. Response to treatment: the patient's symptoms have markedly improved after treatment, and as a result, I will discharge patient. Special discussion: Based on the patient's Hx, exam, and Dx evaluation, there is no indication for emergent surgery or inpatient Tx. It is understood by the patient/guardian that if the Sx's persist or worsen they need to return immediately for re-evaluation. I discussed with the patient their frequent requests for pain medications. Instructions have been given, that in the best interests of the patient, further pain Rx's must come from the patient's PCP or a mural painter. 02/04 20:11 Order name: CBC with Diff; Complete Time: 21:13 cp 02/04 21:13 Interpretation: Normal except: RBC 3.81; HGB 10.0; HCT 30.3; MCV 79.6; MCH 26.2; PLT cp 121; RDW 16.8; MPV 7.2. 02/04 20:11 Order name: CMP; Complete Time: 21:13 cp 02/04 21:14 Interpretation: Normal except: K 3.4; CL 109; GLUC 113; BUN 26; CRE 1.63; GFR 34; CA cp 8.0; GLOB 3.6; A/G 0.9. 02/04 20:11 Order name: Lipase; Complete Time: 21:13 cp 02/04 20:11 Order name: Urinalysis w/ reflexes; Complete Time: 21:13 cp 02/04 21:15 Order name: XRAY Abdomen Acute Series cp 02/04 20:11 Order name: IV Saline Lock; Complete Time: 20:42 cp 02/04 20:11 Order name: Labs collected and sent; Complete Time: 20:42 cp 02/04 22:29 Order name: PO challenge; Complete Time: 22:36 cp Administered Medications: 20:30 Drug: Ketorolac IM 30 mg Route: IM; Site: left deltoid; mb9 21:30 Follow up: Response: No adverse reaction; Marked relief of symptoms; Pain is decreased pf1 20:30 Drug: Promethazine IM 25 mg Route: IM; Site: right deltoid; mb9 21:30 Follow up: Response: No adverse reaction; Marked relief of symptoms; Nausea is decreasedpf1 21:40 Drug: Potassium PO Effervescent Tablet 25 mEq Route: PO; ha1 22:00 Follow up: Response: No adverse reaction ha1 22:57 Drug: Ondansetron IVP 4 mg Route: IVP; Site: left forearm; ha1 23:15 Follow up: Response: No adverse reaction; Nausea is decreased ha1 22:58 Drug: NS 0.9% IV 500 ml Route: IV; Rate: bolus; Site: left forearm; ha1 02/05 00:00 Follow up: Response: No adverse reaction; Marked relief of symptoms; IV Status: pf1 Completed infusion; IV Intake: 500ml Disposition: 02/04 20:32 Co-signature as Attending Physician, Jose CHEUNG was immediately available on-site ms3 in the Emergency Department for consultation in the care of the patient. Disposition Summary: 02/04/23 23:28 Discharge Ordered Location: Home cp Problem: new cp Symptoms: have improved cp Condition: Stable cp Diagnosis - Nausea with vomiting, unspecified cp - Lower abdominal pain, unspecified cp - Candidiasis of other sites - right breast cp Followup: cp - With: Private Physician - When: 2 - 3 days - Reason: Recheck today's complaints Discharge Instructions: - Discharge Summary Sheet cp - Abdominal Pain, Adult cp - Nausea and Vomiting, Adult cp - Skin Yeast Infection cp Forms: - Medication Reconciliation Form cp - Thank You Letter cp - Antibiotic Education cp - Prescription Opioid Use cp - Patient Portal Instructions cp - Leadership Thank You Letter cp Prescriptions: - nystatin 100,000 unit/gram Topical cream - apply 1 application by TOPICAL route 3 times per day; 30 gram tube; Refills: 0, cp Product Selection Permitted - Zofran 4 mg Oral Tablet - take 1 tablet by ORAL route every 12 hours As needed; 20 tablet; Refills: 0, cp Product Selection Permitted Signatures: Dispatcher [employer] EDJustus Ugalde PA PA cp Sims, Marcus, DO DO ms3 Ludivina Ramires RN RN ha1 Jessie Cristina RN RN mb9 Kay Castrejon RN pf1
--- NOTE | 2023-02-04 23:29 | ER ---
[facility] Name: Marjan Kolb Age: 68 yrs Sex: Female : 1955 Arrival Date: 02/04/2023 Time: 19:23 Bed 16 Private MD: Diagnosis: Nausea with vomiting, unspecified;Lower abdominal pain, unspecified;Candidiasis of other sites-right breast Presentation: 02/04 19:25 Chief complaint: EMS states: "toned out for abdominal pain \\T\\ N x 2 days. Pt states last mb9 BM was this morning and it was normal. Pt states she has a rash under her right breast that started yesterday as well". Coronavirus screen: Vaccine status: Patient reports receiving the 2nd dose of the covid vaccine. Ebola Screen: No symptoms or risks identified at this time. Initial Sepsis Screen: Does the patient meet any 2 criteria? No. Patient's initial sepsis screen is negative. Does the patient have a suspected source of infection? No. Patient's initial sepsis screen is negative. Risk Assessment: Do you want to hurt yourself or someone else? Patient reports no desire to harm self or others. Onset of symptoms was 2022. 19:25 Method Of Arrival: EMS: [facility] mb9 19:25 Acuity: BLAYNE 3 mb9 Triage Assessment: 19:28 General: Appears uncomfortable, Behavior is calm, cooperative. Pain: Complains of pain mb9 in abdomen Pain does not radiate. Pain currently is 10 out of 10 on a pain scale. Quality of pain is described as throbbing, Pain began 2-3 days ago. Is continuous. EENT: No signs and/or symptoms were reported regarding the EENT system. Neuro: Gonzalez Agitation-Sedation Scale (RASS): 0 - Alert and Calm Level of Consciousness is awake, alert, obeys commands, Oriented to person, place, time, situation, Appropriate for age. Cardiovascular: Heart tones S1 S2 present Patient's skin is warm and dry. Respiratory: Airway is patent Respiratory effort is even, unlabored, Respiratory pattern is regular, symmetrical, Breath sounds are clear bilaterally. GI: Abdomen is round non-distended, Bowel sounds present X 4 quads. Abd is soft and non tender X 4 quads. : No signs and/or symptoms were reported regarding the genitourinary system. Derm: Rash noted that is itchy, red, on right breast. Musculoskeletal: Range of motion: intact in all extremities. Historical: - Allergies: 19:28 Azithromycin; mb9 19:28 Bactrim; mb9 19:28 butorphanol; mb9 19:28 Fentanyl; mb9 19:28 Reglan; mb9 19:28 Sulfa (Sulfonamide Antibiotics); mb9 19:28 TRIMETHOPRIM; mb9 - PMHx: 19:28 angina pectoris; Anxiety; Atrial fibrillation; Bipolar disorder; esophageal varicies; mb9 Hepatitis; HIV positive; Hypertensive disorder; Migraine; panic attack; - Immunization history:: Adult Immunizations up to date. - Social history:: Smoking status: Patient reports the use of cigarette tobacco products, smokes one pack cigarettes per day. Screenin:31 [facility] ED Fall Risk Assessment (Adult) History of falling in the last 3 months, mb9 including since admission No falls in past 3 months (0 pts) Confusion or Disorientation No (0 pts) Intoxicated or Sedated No (0 pts) Impaired Gait No (0 pts) Mobility Assist Device Used No (0 pt) Altered Elimination No (0 pt) Score/Fall Risk Level 0 - 2 = Low Risk Oriented to surroundings, Maintained a safe environment, Educated pt \\T\\ family on fall prevention, incl call for assistance when getting out of bed. Abuse screen: Denies threats or abuse. Nutritional screening: No deficits noted. Tuberculosis screening: No symptoms or risk factors identified. Assessment: 19:31 Reassessment: see triage assessment. mb9 21:30 Reassessment: Patient and/or family updated on plan of care and expected duration. Pain ha1 level reassessed. Patient is alert, oriented x 3, equal unlabored respirations, skin warm/dry/pink. 22:15 Reassessment: Patient and/or family updated on plan of care and expected duration. Pain ha1 level reassessed. Patient is alert, oriented x 3, equal unlabored respirations, skin warm/dry/pink. 22:58 Reassessment: Patient and/or family updated on plan of care and expected duration. Pain ha1 level reassessed. Patient is alert, oriented x 3, equal unlabored respirations, skin warm/dry/pink. 23:45 Reassessment: Patient and/or family updated on plan of care and expected duration. Pain ha1 level reassessed. Patient is alert, oriented x 3, equal unlabored respirations, skin warm/dry/pink. Vital Signs: 19:25 BP 173 / 54; Pulse 67; Resp 18; Temp 97.1; Pulse Ox 100% on R/A; Weight 83.91 kg; mb9 Height 5 ft. 5 in. ; 21:30 BP 166 / 72; Pulse 74; Resp 20 S; Pulse Ox 100% on 2 lpm NC; ha1 22:30 BP 167 / 95; Pulse 74; Resp 18 S; Pulse Ox 100% on 2 lpm NC; ha1 23:30 BP 166 / 98; Pulse 75; Resp 18 S; Pulse Ox 100% on 2 lpm NC; ha1 19:25 Body Mass Index 30.79 (83.91 kg, 165.1 cm) mb9 ED Course: 19:25 Patient arrived in ED. mb9 19:25 Justus Neil PA is PHCP. cp 19:25 Jose Shah DO is Attending Physician. cp 19:27 Triage completed. mb9 19:27 Arm band placed on. mb9 19:31 Placed in gown. Bed in low position. Call light in reach. Side rails up X 1. Client mb9 placed on continuous cardiac and pulse oximetry monitoring. NIBP monitoring applied. 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 19:38 Jessie Cristina, ASHLEY is Primary Nurse. mb9 19:58 No provider procedures requiring assistance completed. mb9 20:00 Missed attempt(s): 24 gauge in right forearm. Bleeding controlled, band aid applied, mb9 catheter tip intact. 20:25 Inserted saline lock: 20 gauge in left forearm, using aseptic technique. Blood pf1 collected. 20:29 CBC with Diff Sent. mb9 20:30 CMP Sent. mb9 20:42 Lipase Sent. mb9 22:02 XRAY Abdomen Acute Series In Process Unspecified. EDMS 02/05 00:06 IV discontinued, intact, bleeding controlled, No redness/swelling at site. Pressure pf1 dressing applied. 00:08 Provided Education on: medication education. pf1 Administered Medications: 02/04 20:30 Drug: Ketorolac IM 30 mg Route: IM; Site: left deltoid; mb9 21:30 Follow up: Response: No adverse reaction; Marked relief of symptoms; Pain is decreased pf1 20:30 Drug: Promethazine IM 25 mg Route: IM; Site: right deltoid; mb9 21:30 Follow up: Response: No adverse reaction; Marked relief of symptoms; Nausea is decreasedpf1 21:40 Drug: Potassium PO Effervescent Tablet 25 mEq Route: PO; ha1 22:00 Follow up: Response: No adverse reaction ha1 22:57 Drug: Ondansetron IVP 4 mg Route: IVP; Site: left forearm; ha1 23:15 Follow up: Response: No adverse reaction; Nausea is decreased ha1 22:58 Drug: NS 0.9% IV 500 ml Route: IV; Rate: bolus; Site: left forearm; ha1 02/05 00:00 Follow up: Response: No adverse reaction; Marked relief of symptoms; IV Status: pf1 Completed infusion; IV Intake: 500ml Medication: 02/04 19:31 VIS not applicable for this client. mb9 Intake: 02/05 00:00 IV: 500ml; Total: 500ml. pf1 Outcome: 02/04 23:28 Discharge ordered by . nakia 23:45 Condition: stable ha1 02/05 00:07 Discharge instructions given to patient, Instructed on discharge instructions, follow pf1 up and referral plans. Demonstrated understanding of instructions, follow-up care, medications, Prescriptions given X 2. 00:07 Discharged to home via wheelchair. pf1 00:08 Patient left the ED. pf1 Signatures: Dispatcher [employer] EDMS Justus Neil PA PA cp Ayala, Heidy, RN RN ha1 Jessie Cristina RN RN mb9 Kay Castrejon RN RN pf1
[2023-02-05 01:18] VITALS: TEMP 97.1; O2SAT 100
[2023-02-05 01:46] VITALS: BP 166/98
== END 2023-02-05 00:08 | disposition home or self-care (01) ==
LOC: ER 19:23
DX: R11.2 Nausea with vomiting, unspecified (principal); R10.30 Lower abdominal pain, unspecified; B37.89 Other sites of candidiasis; F17.210 Nicotine dependence, cigarettes, uncomplicated; Z88.1 Allergy status to other antibiotic agents; Z88.2 Allergy status to sulfonamides; Z88.3 Allergy status to other anti-infective agents; Z88.5 Allergy status to narcotic agent; Z88.8 Allergy status to other drugs, medicaments and biological substances
CPT/HCPCS: 96361; 85025; 81001; 36415; 83690; 80053; 74022; 96372; 96374; 99285; J2550; J2405; J7040

== ENCOUNTER 2023-02-07 14:05 | Emergency (ER) | payer OTHER ==
--- OUTSIDE RECORDS SUMMARY | 2023-02-07 14:26 | XMS REPORT | Continuity of Care Document ---
:[address] [facility] t Address [address] [facility] [place] [address] Care Team Providers Name Role Phone Urmila Rahman Primary Care Physician ELAN LIRA Attending Clinician Unavailable HEMATPOLIZ, MILTONAYAR Attending Clinician Unavailable SANTIAGO CARDENAS Attending Clinician [...] Attending Clinician Unavailable Robbi Bal Attending Clinician [facility] Attending Clinician Unavailable Isaias Whiteside RN Attending Clinician Unavailable TOMY MARIE Attending Clinician Unavailable Reilly Means MD Attending Clinician Ofe Shields MD Attending Clinician Tomy Marie MD Attending Clinician Doctor Unassigned, [place] Attending Clinician Unavailable CHARITY MCALLISTER Attending Clinician Unavailable Charity Mcallister MD Attending Clinician GADIEL KOEHLER Attending Clinician Unavailable Mike Lund Attending Clinician Unavailable NIKOLAI REEVES Attending Clinician Unavailable Eliseo Arce MD Attending Clinician Sarai Maharaj NP Attending Clinician [phone] Ashly Pelletier MA Attending Clinician Unavailable Dagoberto Bass MD Attending Clinician [place] Evangelista Attending Clinician Lab, [facility] Pob I Attending Clinician Unavailable Monica Rodas MA Attending Clinician Unavailable Agustina Ortiz MA Attending Clinician Unavailable Rody Maguire RN Attending Clinician Unavailable Kirit Flood MD, V. Attending Clinician HEMATPOUR, BEVERLY Attending Clinician Unavailable Caridad HUITRONP, Gloria Attending Clinician Xiao RAMIREZ, Michael Corbin Attending Clinician Unavailable Team, [facility] Attending Clinician UnavailDO PORSHA Newell Attending Clinician Unavailable Rodo JENKINS, Gadiel Attending Clinician Tyrone JENKINS, Eveline Sierra Attending Clinician Stanislav RAMIREZ, Eladio Inman Attending Clinician Unavailable Geraldine SALGUERO, Leyda Attending Clinician [phone] Selvin RAMIREZ, Stefanie Attending Clinician Unavailable HOME [...] Expiration Date S gabino [facility] COMMUNITY PLAN [id number] 2012 STAR PLUS OON 00:00:00 [facility] [id number] 2019 DUAL COMPLETE HMO 00:00:00 [facility] STAR [id number] 2019 PLUS 00:00:00 [facility] [id number] 2019 [facility] [place] STAR 00:00:00 [employer] MEDICARE ADV [id number] 2019 2019 00:00:00 00:00:00 Problems Condition Condition Condition Status Onset Resolution Last Treating Co mments Source Name Details Category Date Date Treatment Clinician Date Dyspnea, Dyspnea, Disease Active Unive rs unspecifie unspecifie 02-11 it y of d type d type 00:00: [place] [address] Medical Branch Gastropare Gastropare Disease Active Overview : Methodi sis sis -[address] 00:00: [facility] note l might be different from the original. Added automatic ally from request for surgery [id number] Dysphagia Dysphagia Disease Active Overview: Methodi 4-[address] 00:00: [facility] 00 note l might be different from the original. Added automatic ally from request for surgery [id number] CCL / EPS CCL / EPS Diagnosis [...] N/V [facility] hoxazole - Clear 00:00: Garcia [address] [facility] trimetho DA Active SV [facility] prim - Clear 00:00: Garcia [facility] codeine DA Active SV N/V [facility] - Clear 00:00: Garcia [facility] Metoclop Propensi Active [place] ramide [...] of adverse 00:00: [place] reaction 00 Medical Branch Metoclop Propensi Active Method i ramide ty to 04 st Hcl adverse 00:00: Hospita reaction 00 l s to drug METOCLOP DRUG Active Unknown-Cmnt Un matt RAMIDE INGREDI 1- ity of 00:00: [place] 00 Medical Branch Metoclop Propensi Active Unknown - Uni vers ramide ty to See comments 05-28 ity of adverse 00:00: [place] reaction 00 Medical Branch SULFAMET DRUG Active High Unknown-Cmnt 2015-05 Un matt HOXAZOLE INGREDI 06-24 ity of 00:00: [place] [address] [facility] Sulfamet Propensi Active Other - See 2015-05 Stomach Univers hoxazole ty to comments 06-24 pain ity of adverse 00:00: [place] reaction 00 Medical [facility] Sulfamet Propensi Active Rash 2015-05 Method i hoxazole ty to 06-24 st adverse 00:00: Hospita reaction 00 l s to drug METOCLOP DRUG Active Anxiety Univers RAMIDE INGREDI 9-25 ity of HCL 00:00: [place] 00 Medical [place] Metoclop Propensi Active Anxiety Unive rs ramide ty to 9-25 ity of Hcl adverse 00:00: [place] reaction 00 Medical [facility] Butorpha Allergy Active Hallucinatio Other U T [...] Source Natural father Diabetes [facility] Natural father Other - see comments [facility] Natural father Coronary [facility] Disease Medical Branch Natural [facility] Hy[facility] father [facility] Natural mother [facility] Social History Social Habit Start Date Stop Date Quantity Comments Source History SDOH [facility] Alcohol Frequency Hospita l History SDOH [facility] Alcohol Std Drinks Hospit al History SDAZ [facility] Gender [facility] Sexual orientation [facility] History of Social 2022-08-26 2022-08-[address] function 00:00:00 00:00:00 Hospital Exposure to 2022-04-30 2022-05-10 Yes University of SARS-CoV-2 (event) 00:00:00 10:25:00 [facility] Tobacco use and 2022-02-11 2022-02-11 Former smokeless Uni versity of exposure 00:00:00 00:00:00 tobacco user [facility] Tobacco Comment 2022-02-11 2022-02-11 Smokes approx 1-2 Un iversity of 00:00:00 00:00:[address] [facility] day when she Branch smokes Alcohol intake 2020-12-08 2020-12-08 Current drinker [facility] 00:00:00 00:00:00 of [facility] (finding) Cigarettes smoked 2020-09-05 2020-09-[address] current (pack per 00:00:00 00:00:00 Hospita l day) - Reported Cigarette 2020-09-05 2020-09-05 [facility] pack-years 00:00:00 00:00:00 Hospital Alcohol Comment 2016-09-23 2016-09-23 rare [facility] 00:00:00 00:00:00 Hospital History of tobacco 2011-09-29 User of smokeless University of use 00:00:00 tobacco [facility] Sex Assigned At [birth year] [facility] 00:00:00 00:00:00 Smoking Status Start Date Stop Date Source Ex-smoker 2022-02-11 00:00:00 2022-02-11 00:00:00 [facility] Medications Ordered Filled Start Stop Current Ordering Indication Dosage Frequency Signature Comments Components Source Medication Medication Date Date Medication? Clinician (SIG) Name Name ondansetron 0 2022- No 4mg 4 mg, Slow Univers (ZOFRAN 01-28 IV Push, ity of (PF)) 00:15: 23:13 ONCE, 1 [place] injection 4 00 :00 dose, On Medi porfirio mg [facility] 01/27/23 Branch at 1915, JOE KCL 2022-2022- No 40meq 40 mEq, Univers (KLOR-CON 01-28 Oral, ity of M20) tablet 00:15: 23:13 [place]CE, 1 [place] 40 mEq 00 :00 dose, On [facility] 01/27/23 Branch at 191, Routine dicyclomine 2022- No 20mg 20 mg, Uni vers (BENTYL) 01-28 Oral, ity of tablet 20 00:15: 23:13 ONCE, 1 [place] mg 00 :00 dose, On [facility] 01/27/23 Branch at 1914, Routine NaCl 0.9% No 1000mL at 999 Uni vers (NS) bolus 01-27 mL/hr, ity of infusion 23:00: 23:59 1,000 mL, [place] 1,000 mL 00 :00 IV Medical Infusion, Branch ONCE, 1 dose, On [facility] 01/27/23 at 1800, STAT ondansetron 2022- No 4mg 4 mg, Slow Univers (ZOFRAN 01-27 IV Push, ity of (PF)) 21:00: 21:10 ONCE, 1 [place] injection 4 00 :00 dose, On Medi porfirio mg [facility] 01/27/23 Branch at 1600, JOE morpHINE (4 2022- No 4mg 4 mg, Slow Univers mg/mL) 01-27 IV Push, ity of injection 4 21:00: 21:15 ONCE, 1 [place] mg 00 :00 dose, On [facility] 01/27/23 Branch at 1600, STAT iopamidol 2022- No [id number] 70mL 70 mL, U nivers (ISOVUE 01-27 Intravenou ity o f 370-500 mL) 20:44: 20:45 s, ONCE, 1 [place] injection 00 :00 dose, On Medica l 70 mL [facility] 01/27/23 Branch at 1600, Routine hydralAZINE 2022- No 10mg 10 mg, Uni vers (APRESOLINE 01-27 Slow IV ity of ) injection 20:00: 21:10 [place] 10 mg 00 :00 ONCE, 1 Medical dose, On Branch [facility] 01/27/23 at 1500, JOE ondansetron 2022-0 Yes [id number] 4mg Take 1 Univers 4 mg 9-07 tablet by ity of disintegrat 00:00: mouth [place] ing tablet 00 every 8 Medica l (eight) Branch hours as needed for Nausea and Vomiting (N/V). dicyclomine 0 Yes [id number] 20mg Take 1 Univers 20 mg 9-07 tablet by ity of tablet 00:00: mouth 4 [place] 00 (four) Medical times Branch daily. emtricitabi 2022-0 Yes [id number] Take one Univers ne-tenofovi 6-12 po daily ity of r alafen 00:00: [place] (DESCOVY) 00 Medical tablet Branch raltegravir 0 Yes [id number] 400mg Take 1 Univers (ISENTRESS) 6-12 tablet by ity of 400 mg 00:00: mouth in [place] tablet 00 the Medical morning Branch and 1 tablet in the evening. emtricitabi 2022-0 Yes [id number] Take one Univers ne-tenofovi 6-12 po daily ity of r alafen 00:00: [place] (DESCOVY) 00 Medical tablet Branch raltegravir 2022-0 Yes [id number] 400mg Take 1 Univers (ISENTRESS) 6-12 tablet by ity of 400 mg 00:00: mouth in [place] tablet 00 the Medical morning Branch and 1 tablet in the evening. emtricitabi 2022-0 Yes [id number] Take one Univers ne-tenofovi 6-12 po daily ity of r alafen 00:00: [place] (DESCOVY) 00 Medical tablet Branch raltegravir 2022-0 Yes [id number] 400mg Take 1 Univers (ISENTRESS) 6-12 tablet by ity of 400 mg 00:00: mouth in [place] tablet 00 the Medical morning Branch and 1 tablet in the evening. DESCOVY 2022-0 Yes [id number] Take one Univers tablet 5-08 po daily ity of 00:00: [place] 00 Medical Branch raltegravir 2022-0 Yes [id number] 400mg Take 1 Univers (ISENTRESS) 5-08 tablet by ity of 400 mg 00:00: mouth in [place] tablet 00 the Medical morning Branch and 1 tablet in the evening. DESCOVY 2022- No [id number] Take one Univers tablet 5-08 -12 po daily ity of 00:00: 00:00 [place] 00 :00 Medical Branch raltegravir 2022- No [id number] 400mg Take 1 Univers (ISENTRESS) 5-08 -12 tablet by it y of 400 mg 00:00: 00:00 mouth in [place] tablet 00 :00 the Medical morning Branch and 1 tablet in the evening. emtricitabi Yes [id number] Take one Univers ne-tenofovi 4-04 po daily ity of r alafen 00:00: [place] (DESCOVY) 00 Medical tablet Branch emtricitabi 0 Yes [id number] Take one Univers ne-tenofovi 4-04 po daily ity of r alafen 00:00: [place] (DESCOVY) 00 Medical tablet Branch emtricitabi 2022- No [id number] Take one Univers ne-tenofovi 4-04 05-08 po [...] [place] 05/10/22 at 1400, Routine KCL 2021-05 No 40meq 40 mEq, Univers (KLOR-CON 2-19 12-19 Oral, ity of M20) tablet 19:15: 19:37 ONCE[place] 1 [place] 40 mEq 00 :00 dose, On Medical Mon Branch 05/10/22 at 1315, JOE hydralAZINE 2021-05 No 10mg 10 mg, Uni vers (APRESOLINE 07-11 Slow IV ity of ) injection 18:45: 18:42 [place], [place] 10 mg 00 :00 ONCE, 1 Medical dose, On Branch [facility] 05/10/22 at 1245, JOE NaCl 0.9% 2021-05 No 1000mL at 999 Uni vers (NS) bolus 07-11 mL/hr, ity of infusion 17:45: 20:00 1,000 mL, [place] 1,000 mL 00 :00 IV Medical Infusion, Branch ONCE, 1 dose, On [facility] 05/10/22 at 1145, JOE cefpodoxime 2021-05- No [id number] 100mg Take 1 Univers 100 mg 2-17 12-25 tablet by ity of tablet 00:00: 05:59 mouth in [place] 00 :00 the [facility] and 1 tablet in the evening. Do all this for 7 days. cefpodoxime 2021-05- No [id number] 100mg Take 1 Univers 100 mg 2-17 12-25 tablet by ity of tablet 00:00: 05:59 mouth in [place] 00 :00 the [facility] and 1 tablet in the evening. Do all this for 7 days. cefpodoxime 2021-05- No [id number] 100mg Take 1 Univers 100 mg 2-17 12-25 tablet by ity of tablet 00:00: 05:59 mouth in [place] 00 :00 the [facility] and 1 tablet in the evening. Do all this for 7 days. butalbital- 2021-05- No 1{tbl} 1 tablet, Univers acetaminoph 07-08-15 Oral, ity of en-caff 00:15: 23:19 ONCE, [...] 05/06/22 at 1515, JOE ondansetron 2021-05 Yes [id number] 1-2 U nivers 4 mg tablet 2-15 tablets ity o f 00:00: every 8 [place] 00 hours as Medical needed for Branch nausea benzonatate 2021-05 Yes [id number] 200mg Take 1 Univers 200 mg 2-15 capsule by ity of capsule 00:00: mouth 3 [place] 00 (three) Medical times Branch daily as needed for Cough. albuterol 2021-05 Yes [id number] 2{puff} Inhale 2 Univers 90 2-15 Puffs ity of mcg/actuati 00:00: every 4 [place] on inhaler 00 (four) Medical hours as Branch needed for Wheezing or Shortness of Breath. butalbital- 2021-05 Yes [id number] 1{tbl} Take 1 Univers acetaminoph 2-15 tablet by ity of en-caff 00:00: mouth [place] 50-325-40 00 every 4 Medical mg tablet (four) Branch hours as needed (headache) . ondansetron 2021-05 Yes [id number] 1-2 U nivers 4 mg tablet 2-15 tablets ity o f 00:00: every 8 [place] 00 hours as Medical needed for Branch nausea benzonatate 2021-05 Yes [id number] 200mg Take 1 Univers 200 mg 2-15 capsule by ity of capsule 00:00: mouth 3 [place] 00 (three) Medical times Branch daily as needed for Cough. albuterol 2021-05 Yes [id number] 2{puff} Inhale 2 Univers 90 2-15 Puffs ity of mcg/actuati 00:00: every 4 [place] on inhaler 00 (four) Medical hours as Branch needed for Wheezing or Shortness of Breath. butalbital- 2021-05 Yes [id number] 1{tbl} Take 1 Univers acetaminoph 2-15 tablet by ity of en-caff 00:00: mouth [place] 50-325-40 00 every 4 Medical mg tablet (four) Branch hours as needed (headache) . ondansetron 2021-05 Yes [id number] 1-2 U nivers 4 mg tablet 2-15 tablets ity o f 00:00: every 8 [place] 00 hours as Medical needed for Branch nausea benzonatate 2021-05 Yes [id number] 200mg Take 1 Univers 200 mg 2-15 capsule by ity of capsule 00:00: mouth 3 [place] 00 (three) Medical times Branch daily as needed for Cough. albuterol 2021-05 Yes [id number] 2{puff} Inhale 2 Univers 90 2-15 Puffs ity of mcg/actuati 00:00: every 4 [place] on inhaler 00 (four) Medical hours as Branch needed for Wheezing or Shortness of Breath. butalbital- 2021-05 Yes [id number] 1{tbl} Take 1 Univers acetaminoph 2-15 tablet by ity of en-caff 00:00: mouth [place] 50-325-40 00 every 4 Medical mg tablet (four) Branch hours as needed (headache) . ondansetron 2021-05 Yes [id number] 1-2 U nivers 4 mg tablet 2-15 tablets ity o f 00:00: every 8 [place] 00 hours as Medical needed for Branch nausea benzonatate 2021-05 Yes [id number] 200mg Take 1 Univers 200 mg 2-15 capsule by ity of capsule 00:00: mouth 3 [place] 00 (three) Medical times Branch daily as needed for Cough. albuterol 2021-05 Yes [id number] 2{puff} Inhale 2 Univers 90 2-15 Puffs ity of mcg/actuati 00:00: every 4 [place] on inhaler 00 (four) Medical hours as Branch needed for Wheezing or Shortness of Breath. butalbital- 2021-05 Yes [id number] 1{tbl} Take 1 Univers acetaminoph 2-15 tablet by ity of en-caff 00:00: mouth [place] 50-325-40 00 every 4 Medical mg tablet (four) Branch hours as needed (headache) . ondansetron 2021-05 Yes [id number] 1-2 U nivers 4 mg tablet 2-15 tablets ity o f 00:00: every 8 [place] 00 hours as Medical needed for Branch nausea benzonatate 2021-05 Yes [id number] 200mg Take 1 Univers 200 mg 2-15 capsule by ity of capsule 00:00: mouth 3 [place] 00 (three) Medical times Branch daily as needed for Cough. albuterol 2021-05 Yes [id number] 2{puff} Inhale 2 Univers 90 2-15 Puffs ity of mcg/actuati 00:00: every 4 [place] on inhaler 00 (four) Medical hours as Branch needed for Wheezing or Shortness of Breath. butalbital- 2021-05 Yes [id number] 1{tbl} Take 1 Univers acetaminoph 2-15 tablet by ity of en-caff 00:00: mouth [place] 50-325-40 00 every 4 Medical mg tablet (four) Branch hours as needed (headache) . ondansetron 2021-05 Yes [id number] 1-2 U nivers 4 mg tablet 2-15 tablets ity o f 00:00: every 8 [place] 00 hours as Medical needed for Branch nausea benzonatate 2021-05 Yes [id number] 200mg Take 1 Univers 200 mg 2-15 capsule by ity of capsule 00:00: mouth 3 [place] 00 (three) Medical times Branch daily as needed for Cough. albuterol 2021-05 Yes [id number] 2{puff} Inhale 2 Univers 90 2-15 Puffs ity of mcg/actuati 00:00: every 4 [place] on inhaler 00 (four) Medical hours as Branch needed for Wheezing or Shortness of Breath. butalbital- 2021-05 Yes [id number] 1{tbl} Take 1 Univers acetaminoph 2-15 tablet by ity of en-caff 00:00: mouth [place] 50-325-40 00 every 4 Medical mg tablet (four) Branch hours as needed (headache) . ondansetron 2021-05 Yes [id number] 1-2 U nivers 4 mg tablet 2-15 tablets ity o f 00:00: every 8 [place] 00 hours as Medical needed for Branch nausea benzonatate 2021-05 Yes [id number] 200mg Take 1 Univers 200 mg 2-15 capsule by ity of capsule 00:00: mouth 3 [place] 00 (three) Medical times Branch daily as needed for Cough. albuterol 2021-05 Yes [id number] 2{puff} Inhale 2 Univers 90 2-15 Puffs ity of mcg/actuati 00:00: every 4 [place] on inhaler 00 (four) Medical hours as Branch needed for Wheezing or Shortness of Breath. butalbital- 2021-05 Yes [id number] 1{tbl} Take 1 Univers acetaminoph 2-15 tablet by ity of en-caff 00:00: mouth [place] 50-325-40 00 every 4 Medical mg tablet (four) Branch hours as needed (headache) . ondansetron 2021-05 Yes [id number] 1-2 U nivers 4 mg tablet 2-15 tablets ity o f 00:00: every 8 [place] 00 hours as Medical needed for Branch nausea benzonatate 2021-05 Yes [id number] 200mg Take 1 Univers 200 mg 2-15 capsule by ity of capsule 00:00: mouth 3 [place] 00 (three) Medical times Branch daily as needed for Cough. albuterol 2021-05 Yes [id number] 2{puff} Inhale 2 Univers 90 2-15 Puffs ity of mcg/actuati 00:00: every 4 [place] inhaler 00 (four) Medical hours as Branch needed for Wheezing or Shortness of Breath. butalbital- 2021-05 Yes [id number] 1{tbl} Take 1 Univers acetaminoph 2-15 tablet by ity of en-caff 00:00: mouth [place] 50-325-40 00 every 4 Medical mg tablet (four) Branch hours as needed (headache) . ondansetron 2021-05 Yes [id number] 1-2 U nivers 4 mg tablet 2-15 tablets ity o f 00:00: every 8 [place] 00 hours as Medical needed for Branch nausea benzonatate 2021-05 Yes [id number] 200mg Take 1 Univers 200 mg 2-15 capsule by ity of capsule 00:00: mouth 3 [place] 00 (three) Medical times Branch daily as needed for Cough. albuterol 2021-05 Yes [id number] 2{puff} Inhale 2 Univers 90 2-15 Puffs ity of mcg/actuati 00:00: every 4 [place] on inhaler 00 (four) Medical hours as Branch needed for Wheezing or Shortness of Breath. butalbital- 2021-05 Yes [id number] 1{tbl} Take 1 Univers acetaminoph 2-15 tablet by ity of en-caff 00:00: mouth [place] 50-325-40 00 every 4 Medical mg tablet (four) Branch hours as needed (headache) . ondansetron 2021-05 Yes [id number] 1-2 U nivers 4 mg tablet 2-15 tablets ity o f 00:00: every 8 [place] 00 hours as Medical needed for Branch nausea benzonatate 2021-05 Yes [id number] 200mg Take 1 Univers 200 mg 2-15 capsule by ity of capsule 00:00: mouth 3 00 (three) Medical times Branch daily as needed for Cough. albuterol 2021-05 Yes [id number] 2{puff} Inhale 2 Univers 90 2-15 Puffs ity of mcg/actuati 00:00: every 4 [place] on inhaler 00 (four) Medical hours as Branch needed for Wheezing or Shortness of Breath. butalbital- 2021-05 Yes [id number] 1{tbl} Take 1 Univers acetaminoph 2-15 tablet by ity of en-caff 00:00: mouth [place] 50-325-40 00 every 4 Medical mg tablet (four) Branch hours as needed (headache) . ondansetron 2021-05 Yes [id number] 1-2 U nivers 4 mg tablet 2-15 tablets ity o f 00:00: every 8 [place] 00 hours as Medical needed for Branch nausea benzonatate 2021-05 Yes [id number] 200mg Take 1 Univers 200 mg 2-15 capsule by ity of capsule 00:00: mouth 3 [place] 00 (three) Medical times Branch daily as needed for Cough. albuterol 2021-05 Yes [id number] 2{puff} Inhale 2 Univers 90 2-15 Puffs ity of mcg/actuati 00:00: every 4 [place] on inhaler 00 (four) Medical hours as Branch needed for Wheezing or Shortness of Breath. butalbital- 2021-05 Yes [id number] 1{tbl} Take 1 Univers acetaminoph 2-15 tablet by ity of en-caff 00:00: mouth [place] 50-325-40 00 every 4 Medical mg tablet (four) Branch hours as needed (headache) . ondansetron 2021-05 Yes [id number] 1-2 U nivers 4 mg tablet 2-15 tablets ity o f 00:00: every 8 [place] 00 hours as Medical needed for Branch nausea benzonatate 2021-05 Yes [id number] 200mg Take 1 Univers 200 mg 2-15 capsule by ity of capsule 00:00: mouth 3 [place] 00 (three) Medical times Branch daily as needed for Cough. albuterol 2021-05 Yes [id number] 2{puff} Inhale 2 Univers 90 2-15 Puffs ity of mcg/actuati 00:00: every 4 [place] on inhaler 00 (four) Medical hours as Branch needed for Wheezing or Shortness of Breath. butalbital- 2021-05 Yes [id number] 1{tbl} Take 1 Univers acetaminoph 2-15 tablet by ity of en-caff 00:00: mouth [place] 50-325-40 00 every 4 Medical mg tablet (four) Branch hours as needed (headache) . nirmatrelvi 2021-05 No [id number] 2{tbl} Take 2 Univers r-ritonavir 2-15 12-21 tablets by i ty of (PAXLOVID, 00:00: 05:59 mouth in [place] EUA,) 300 00 :00 the Medical mg (150 mg morning Branch x 2)-100 mg and 2 tablet tablets in the evening. Do all this for 5 days. niroktrei 2021-05- No [id number] 2{tbl} Take 2 Univers r-ritonavir 2-15 12-21 tablets by i ty of (PAXLOVID, 00:00: 05:59 [place] EUA,) 300 00 :00 the Medical mg (150 mg morning Branch x 2)-100 mg and 2 tablet tablets in the evening. Do all this for 5 days. nirmatrelvi 2021-05- No [id number] 2{tbl} Take 2 Univers r-ritonavir 2-15 12-21 tablets by i ty of (PAXLOVID, 00:00: 05:59 mouth [place] EUA,) 300 00 :00 the Medical mg (150 mg morning Branch x 2)-100 mg and 2 tablet tablets in the evening. Do all this for 5 days. nirmatrei 2021-05- No [id number] 2{tbl} Take 2 Univers r-ritonavir 2-15 12-21 tablets by i ty of (PAXLOVID, 00:00: 05:59 [place] EUA,) 300 00 :00 the Medical mg (150 mg morning Branch x 2)-100 mg and 2 tablet tablets in the evening. Do all this for 5 days. ondansetron 2021-05 4mg 4 mg, Univ [facility] (ZOFRAN-ODT 06-23 Oral, ity of ) 22:45: 21:53 ONCE, 1 [place] disintegrat 00 :00 dose, On Medi porfirio ing tablet [place] Branch 4 mg 04/22/22 at 1645, Routine amoxicillin 2021-05 Yes [id number] 1{tbl} Take 1 Univers -clavulanat 2- [id number] tablet by i ty of e 875-125 00:00: mouth [place] mg per 00 every 12 Medical tablet (twelve) Branch hours. ondansetron 2021-05 Yes [id number] 4mg Take 1 Univers 4 mg - [id number] tablet by ity of disintegrat 00:00: mouth [place] ing tablet 00 every 8 Medica l (eight) Branch hours as needed for Nausea and Vomiting (N/V). amoxicillin 2021-05 Yes [id number] 1{tbl} Take 1 Univers -clavulanat 2-01 [id number] tablet by i ty of e 875-125 00:00: mouth [place] mg per 00 every 12 Medical tablet (twelve) Branch hours. ondansetron 2021-05 Yes [id number] 4mg Take 1 Univers 4 mg 2-01 [id number] tablet by ity of disintegrat 00:00: mouth [place] ing tablet 00 every 8 Medica l (eight) Branch hours as needed for Nausea and Vomiting (N/V). amoxicillin 2021-05 Yes [id number] 1{tbl} Take 1 Univers -clavulanat 2-01 [id number] tablet by i ty of e 875-125 00:00: mouth [place] mg per 00 every 12 Medical tablet (twelve) Branch hours. ondansetron 2021-05 Yes [id number] 4mg Take 1 Univers 4 mg 2- [id number] tablet by ity of disintegrat 00:00: mouth [place] ing tablet 00 every 8 Medica l (eight) Branch hours as needed for Nausea and Vomiting (N/V). amoxicillin 2021-05 Yes [id number] 1{tbl} Take 1 Univers -clavulanat 2-01 [id number] tablet by i ty of e 875-125 00:00: mouth [place] mg per 00 every 12 Medical tablet (twelve) Branch hours. ondansetron 2021-05 Yes [id number] 4mg Take 1 Univers 4 mg 2- [id number] tablet by ity of disintegrat 00:00: mouth [place] ing tablet 00 every 8 Medica l (eight) Branch hours as needed for Nausea and Vomiting (N/V). amoxicillin 2021-05 Yes [id number] 1{tbl} Take 1 Univers -clavulanat 2-01 [id number] tablet by i ty of e 875-125 00:00: mouth [place] mg per 00 every 12 Medical tablet (twelve) Branch hours. ondansetron 2021-05 Yes [id number] 4mg Take 1 [facility] 4 mg 2-01 [id number] tablet by ity of disintegrat 00:00: mouth [place] ing tablet 00 every 8 Medica l (eight) Branch hours as needed for Nausea and Vomiting (N/V). amoxicillin 2021-05 Yes [id number] 1{tbl} Take 1 [facility] -clavulanat 2-01 [id number] tablet by i ty of e 875-125 00:00: mouth [place] mg per 00 every 12 Medical tablet (twelve) Branch hours. ondansetron 2021-05 Yes [id number] 4mg Take 1 [facility] 4 mg 2-01 [id number] tablet by ity of disintegrat 00:00: mouth [place] ing tablet 00 every 8 Medica l (eight) Branch hours as needed for Nausea and Vomiting (N/V). amoxicillin 2021-05 Yes [id number] 1{tbl} Take 1 [facility] -clavulanat 2-01 [id number] tablet by i ty of e 875-125 00:00: mouth [place] mg per 00 every 12 Medical tablet (twelve) Branch hours. ondansetron 2021-05 Yes [id number] 4mg Take 1 [facility] 4 mg 2-01 [id number] tablet by ity of disintegrat 00:00: mouth [place] ing tablet 00 every 8 Medica l (eight) Branch hours as needed for Nausea and Vomiting (N/V). amoxicillin 2021-05 Yes [id number] 1{tbl} Take 1 [facility] -clavulanat 2-01 [id number] tablet by i ty of e 875-125 00:00: mouth [place] mg per 00 every 12 Medical tablet (twelve) Branch hours. ondansetron 2021-05 Yes [id number] 4mg Take 1 [facility] 4 mg 2- 001435 tablet by ity of disintegrat 00:00: mouth [place] ing tablet 00 every 8 Medica l (eight) Branch hours as needed for Nausea and Vomiting (N/V). amoxicillin 2021-05 Yes [id number] 1{tbl} Take 1 [facility] -clavulanat 2-01 [id number] tablet by i ty of e 875-125 00:00: mouth [place] mg per 00 every 12 Medical tablet (twelve) Branch hours. ondansetron 2021-05 Yes [id number] 4mg Take 1 [facility] 4 mg 2-01 [id number] tablet by ity of disintegrat 00:00: mouth [place] ing tablet 00 every 8 Medica l (eight) Branch hours as needed for Nausea and Vomiting (N/V). amoxicillin 2021-05 Yes [id number] 1{tbl} Take 1 [facility] -clavulanat 2-01 [id number] tablet by i ty of e 875-125 00:00: mouth [place] mg per 00 every 12 Medical tablet (twelve) Branch hours. ondansetron 2021-05 Yes [id number] 4mg Take 1 [facility] 4 mg 2-01 [id number] tablet by ity of disintegrat 00:00: mouth [place] ing tablet 00 every 8 Medica l (eight) Branch hours as needed for Nausea and Vomiting (N/V). amoxicillin 2021-05 Yes [id number] 1{tbl} Take 1 [facility] -clavulanat 2-01 [id number] tablet by i ty of e 875-125 00:00: mouth [place] mg per 00 every 12 Medical tablet (twelve) Branch hours. ondansetron 2021-05 Yes [id number] 4mg Take 1 [facility] 4 mg 2-01 [id number] tablet by ity of disintegrat 00:00: mouth [place] ing tablet 00 every 8 Medica l (eight) Branch hours as needed for Nausea and Vomiting (N/V). amoxicillin 2021-05 Yes [id number] 1{tbl} Take 1 [facility] -clavulanat 2-01 [id number] tablet by i ty of e 875-125 00:00: mouth [place] mg per 00 every 12 Medical tablet (twelve) Branch hours. ondansetron 2021-05 Yes [id number] 4mg Take 1 [facility] 4 mg 2-01 [id number] tablet by ity of disintegrat 00:00: mouth [place] ing tablet 00 every 8 Medica l (eight) Branch hours as needed for Nausea and Vomiting (N/V). amoxicillin 2021-05 Yes [id number] 1{tbl} Take 1 [facility] -clavulanat 2-01 [id number] tablet by i ty of e 875-125 00:00: mouth [place] mg per 00 every 12 Medical tablet (twelve) Branch hours. ondansetron 2021-05 Yes [id number] 4mg Take 1 [facility] 4 mg 2-01 [id number] tablet by ity of disintegrat 00:00: mouth [place] ing tablet 00 every 8 Medica l (eight) Branch hours as needed for Nausea and Vomiting (N/V). amoxicillin 2021-05 Yes [id number] 1{tbl} Take 1 [facility] -clavulanat 2-01 [id number] tablet by i ty of e 875-125 00:00: mouth [place] mg per 00 every 12 Medical tablet (twelve) Branch hours. ondansetron 2021-05 Yes [id number] 4mg Take 1 [facility] 4 mg 2-01 [id number] tablet by ity of disintegrat 00:00: mouth [place] ing tablet 00 every 8 Medica l (eight) Branch hours as needed for Nausea and Vomiting (N/V). zoster 2021-05- No [id number] .5mL 0.5 mL by [facility] vaccine, 0-05 03-15 9104 [facility] ity of recombinant 00:00: 04:59 lar route [place] (SHINGRIX, 00 :00 once now Medic al PF,) for 1 Branch injection dose. And repeat in 2-6 months zoster 2021-05- No [id number] .5mL 0.5 mL by [facility] vaccine, 0-14 -15 9104 [facility] ity of recombinant 00:00: 04:59 lar route [place] (SHINGRIX, 00 :00 once now Medic al PF,) for 1 Branch injection dose. And repeat in 2-6 months zoster 2021-05- No [id number] .5mL 0.5 mL by [facility] vaccine, 0-05 [...] o f 1 mg tablet 19:28: at [place] 04 bedtime. Medical Branch traZODone 2022-0 Yes 50mg Take 50 mg Un matt 100 mg 9-27 by mouth ity of tablet 19:28: at [place] [address] bedtime. Medical Branch hydralAZINE 2-0 Yes 25mg [...] 100 mg 04 (two) Medical tablet times [place] daily. amLODIPine 2-0 Yes 10mg Take 10 mg U nivers (NORVASC) 9-27 by mouth ity of 10 mg 19:28: daily. [place] tablet 04 Medical Branch clonazePAM 2021-0 Yes 1mg Take 1 mg Un matt (KLONOPIN) 9-27 by mouth ity o f 1 mg tablet 19:28: at [place] [address] bedtime. Medical Branch traZODone 2021-0 Yes 50mg Take 50 mg Un matt 100 mg 9-27 by mouth ity of tablet 19:28: at [place] [address] bedtime. Medical Branch hydralAZINE 2021-0 Yes 25mg [...] o f 1 mg tablet 19:28: at [place] [address] bedtime. Medical Branch traZODone 2021-0 Yes 50mg Take 50 mg Un matt 100 mg 9-27 by mouth ity of tablet 19:28: at [place] [address] bedtime. Medical Branch hydralAZINE 2021-0 Yes 25mg [...] 100 mg 04 (two) Medical tablet times [place] daily. amLODIPine 2021-0 Yes 10mg Take 10 mg U nivers (NORVASC) 9-27 by mouth ity of 10 mg 19:28: daily. [place] tablet 04 Medical Branch clonazePAM 0 Yes 1mg Take 1 mg Un matt (KLONOPIN) 9-27 by mouth ity o f 1 mg tablet 19:28: at [place] [address] bedtime. Medical Branch traZODone 2021-0 Yes 50mg Take 50 mg Un matt 100 mg 9-27 by mouth ity of tablet 19:28: at [place] [address] bedtime. Medical Branch hydralAZINE 2021-0 Yes 25mg [...] o f 1 mg tablet 19:28: at [place] [address] bedtime. Medical Branch traZODone 2021-0 Yes 50mg Take 50 mg Un matt 100 mg 9-27 by mouth ity of tablet 19:28: at [place] [address] bedtime. Medical Branch hydralAZINE 2021-0 Yes 25mg [...] o f 1 mg tablet 19:28: at [place] [address] bedtime. Medical Branch traZODone 2021-0 Yes 50mg Take 50 mg Un matt 100 mg 9- by mouth ity of tablet 19:28: at [place] [address] bedtime. Medical Branch hydralAZINE 2021-0 Yes 25mg [...] 100 mg 04 (two) Medical tablet times [place] daily. amLODIPine 2021-0 Yes 10mg Take 10 mg U nivers (NORVASC) 9-27 by mouth ity of 10 mg 19:28: daily. [place] tablet 04 Medical Branch clonazePAM 2021-0 Yes 1mg Take 1 mg Un matt (KLONOPIN) 9-27 by mouth ity o f 1 mg tablet 19:28: at [place] [address] bedtime. Medical Branch traZODone 2021-0 Yes 50mg Take 50 mg Un matt 100 mg 9-27 by mouth ity of tablet 19:28: at [place] [address] bedtime. Medical Branch hydralAZINE 2021-0 Yes 25mg [...] 100 mg 04 (two) Medical tablet times [place] daily. amLODIPine 2021-0 Yes 10mg Take 10 mg U nivers (NORVASC) 9-27 by mouth ity of 10 mg 19:28: daily. [place] tablet 04 Medical Branch clonazePAM 2021-0 Yes 1mg Take 1 mg Un matt (KLONOPIN) 9-27 by mouth ity o f 1 mg tablet 19:28: at [place] [address] bedtime. Medical Branch traZODone 2021-0 Yes 50mg Take 50 mg Un matt 100 mg 9-27 by mouth ity of tablet 19:28: at [place] [address] bedtime. Medical Branch hydralAZINE 2021-0 Yes 25mg [...] o f 1 mg tablet 19:28: at [place] [address] bedtime. Medical Branch traZODone 2021-0 Yes 50mg Take 50 mg Un matt 100 mg 9-27 by mouth ity of tablet 19:28: at [place] [address] bedtime. Medical Branch hydralAZINE 2021-0 Yes 25mg [...] o f 1 mg tablet 19:28: at [place] [address] bedtime. Medical Branch traZODone 2021-0 Yes 50mg Take 50 mg Un matt 100 mg 9-27 by mouth ity of tablet 19:28: at [place] [address] bedtime. Medical Branch hydralAZINE 2021-0 Yes 25mg [...] o f 1 mg tablet 19:28: at [place] [address] bedtime. Medical Branch traZODone 2-0 Yes 50mg Take 50 mg Un matt 100 mg 9-27 by mouth ity of tablet 19:28: at [place] [address] bedtime. Medical Branch hydralAZINE 2-0 Yes 25mg [...] o f 1 mg tablet 19:28: at [place] [address] bedtime. Medical Branch traZODone 2-0 Yes 50mg Take 50 mg Un matt 100 mg 9-27 by mouth ity of tablet 19:28: at [place] [address] bedtime. Medical Branch hydralAZINE 2-0 Yes 25mg [...] o f 1 mg tablet 19:28: at [place] [address] bedtime. Medical Branch traZODone 2-0 Yes 50mg Take 50 mg Un matt 100 mg 9-27 by mouth ity of tablet 19:28: at [place] [address] bedtime. Medical Branch hydralAZINE 2021-0 Yes 25mg [...] o f 1 mg tablet 19:28: at [place] [address] bedtime. Medical Branch traZODone 2022-0 Yes 50mg Take 50 mg Un matt 100 mg 9-27 by mouth ity of tablet 19:28: at [place] [address] bedtime. Medical Branch hydralAZINE 2021-0 Yes 25mg [...] o f 1 mg tablet 19:28: at [place] [address] bedtime. Medical Branch traZODone 2021-0 Yes 50mg Take 50 mg Un matt 100 mg 9-27 by mouth ity of tablet 19:28: at [place] [address] bedtime. Medical Branch hydralAZINE 2021-0 Yes 25mg [...] o f 1 mg tablet 19:28: at [place] [address] bedtime. Medical Branch traZODone 2021-0 Yes 50mg Take 50 mg Un matt 100 mg 9-27 by mouth ity of tablet 19:28: at [place] [address] bedtime. Medical Branch hydralAZINE 2021-0 Yes 25mg [...] o f 1 mg tablet 19:28: at [place] [address] bedtime. Medical Branch traZODone 2021-0 Yes 50mg Take 50 mg Un matt 100 mg 9-27 by mouth ity of tablet 19:28: at [place] [address] bedtime. Medical Branch hydralAZINE 2021-0 Yes 25mg [...] o f 1 mg tablet 19:28: at [place] [address] bedtime. Medical Branch traZODone 2021-0 Yes 50mg Take 50 mg Un matt 100 mg 9-27 by mouth ity of tablet 19:28: at [place] [address] bedtime. Medical Branch hydralAZINE 2021-0 Yes 25mg [...] o f 1 mg tablet 19:28: at [place] [address] bedtime. Medical Branch traZODone 2021-0 Yes 50mg Take 50 mg Un matt 100 mg 9-27 by mouth ity of tablet 19:28: at [place] [address] bedtime. Medical Branch hydralAZINE 2021-0 Yes 25mg [...] o f 1 mg tablet 19:28: at [place] [address] bedtime. Medical Branch traZODone 2021-0 Yes 50mg Take 50 mg Un matt 100 mg 9-27 by mouth ity of tablet 19:28: at [place] [address] bedtime. Medical Branch hydralAZINE 2021-0 Yes 25mg [...] o f 1 mg tablet 19:28: at [place] [address] bedtime. Medical Branch traZODone 2021-0 Yes 50mg Take 50 mg Un matt 100 mg 9- by mouth ity of tablet 19:28: at [place] [address] bedtime. Medical Branch hydralAZINE 2021-0 Yes 25mg [...] o f 1 mg tablet 19:28: at [place] [address] bedtime. Medical Branch traZODone 0 Yes 50mg Take 50 mg Un matt 100 mg 02-16 by mouth ity of tablet 19:28: at [place] [address] bedtime. Medical Branch cefpodoxime 2021- No [id number] 200mg Take 1 [facility] 200 mg 02-16 tablet by ity of tablet 00:00: 04:59 mouth in [place] 00 :00 the Medical morning Branch and 1 tablet in the evening. Do all this for 3 days. cefpodoxime 2021- No [id number] 200mg Take 1 [facility] 200 mg 02-16 [...] 0400, Routine hydroCHLORO Yes 25mg 25 mg, [facility] [place] [facility] ers thiazide 25 Oral, ity of (ESIDRIX) 14:00: DAILY, [place] capsule 25 00 First dose Med ical mg on [place] Branch 02/14/22 at 0900, Until Discontinu ed, Routine butalbital- 0 Yes 1{tbl} 1 tablet, [facility] acetaminoph 02-13 Oral, ity of en-caff 18:46: Q6HPRN, [place] [...] [place] tablet 4 mg 07 [facility] porfirio on Tue Branch 02/12/22 at [...] it y of (MYCOLOG) 19:00: dose on [place] cream 00 [facility] Medical 02/11/22 at Branch 1400, Until Discontinu ed, Routine busPIRone 202-0 Yes 30mg 30 mg, Univer s (BUSPAR) 02-11 Oral, BID, ity o f tablet 30 18:00: First dose [place] mg 00 on [facility] Routine emtricitabi 2021-0 Yes 1{tbl} 1 tablet, [facility] ne-tenofovi 02-11 Oral, ity of r alafen 18:00: DAILY, [place] (DESCOVY) 00 First dose Medi porfirio tablet 1 on [facility] tablet 02/11/22 at 1300, Until Discontinu [...] :24 Starting Medi porfirio tablet 1 on [facility] Branch tablet 02/11/22 at 0911, Until Tue02/12/22 at 1237, Routine, Pain (scale 7-10) melatonin Yes 3mg 3 mg, Univers (MELATIN) 02-11 Oral, ity of tablet 3 mg 14:08: QHSPRN, [place] as 17 Starting Medical on [facility] Branch 02/11/22 at 0908, Until Discontinu ed, Routine, Insomnia acetaminoph 2021- No 1{tbl} 1 tablet, [facility] en-codeine 02-11 Oral, ity of (TYLENOL 14:06: 17:37 [facility] [place] [facility] 300-30 19 :24 Starting Medic al mg tablet 1 on [facility] Branch tablet 02/11/22 at 0906, Until Tue02/12/22 at 1237, Routine, Pain (scale 4-6) sennosides- Yes 1{tbl} 1 tablet, [facility] docusate 02-11 Oral, ity of sodium 14:06: QDAILYPRN, [place] (SENOKOT-S) 09 Starting Medi porfirio 8.6-50 mg on [facility] Branch per tablet [...] 25 mg 09:10: daily. [place] tablet 54 [facility] amLODIPine 0 Yes 10mg Take 10 mg U nivers (NORVASC) 02-11 by mouth ity of 10 mg 09:10: daily. [place] tablet 54 [facility] Branch piperacilli 2021- No 3.375g [...] of therapy: 72 hours iopamidol 2021- No [id number] 60mL 60 mL, Univers (ISOVUE 02-11 Intravenou [...] 00 :00 dose, On Medi porfirio mg [facility] Branch 02/11/22 at 0045, JOE acetaminoph 2021- No 975mg 975 mg, U nivers en 02-11 Oral, ity of (TYLENOL) 05:15: 04:19 ONCE, 1 [place] tablet 975 00 :00 dose, On Medic al mg [facility] Branch 02/11/22 at 0015, JOE emtricitabi Yes [id number] Take one Univers ne-tenofovi 9-12 po daily ity of r alafen 00:00: [place] (DESCOVY) 00 Medical tablet Branch emtricitabi Yes [id number] Take one [facility] ne-tenofovi 9-12 po daily ity of r alafen 00:00: [place] (DESCOVY) 00 Medical tablet Branch emtricitabi Yes [id number] Take one [facility] ne-tenofovi 9-12 po daily ity of r alafen 00:00: [place] (DESCOVY) 00 Medical tablet Branch emtricitabi Yes [id number] Take one [facility] ne-tenofovi 9-12 po daily ity of r alafen 00:00: [place] (DESCOVY) 00 Medical tablet Branch emtricitabi Yes [id number] Take one [facility] ne-tenofovi 9-12 po daily ity of r alafen 00:00: [place] (DESCOVY) 00 Medical tablet Branch emtricita Yes [id number] Take one [facility] ne-tenofovi 9-12 po daily ity of r alafen 00:00: [place] (DESCOVY) 00 Medical tablet Branch emtricita Yes [id number] Take one [facility] ne-tenofovi 9-12 po daily ity of r alafen 00:00: [place] (DESCOVY) 00 Medical tablet Branch emtricita Yes [id number] Take one [facility] ne-tenofovi 9-12 po daily ity of r alafen 00:00: [place] (DESCOVY) 00 Medical tablet Branch emtricita Yes [id number] Take one Univers ne-tenofovi 9-12 po daily ity of r alafen 00:00: [place] (DESCOVY) 00 Medical tablet [facility] Yes [id number] Take one Univers ne-tenofovi 9-12 po daily ity of r alafen 00:00: [place] (DESCOVY) 00 Medical tablet Branch emtricita Yes [id number] Take one Univers ne-tenofovi 9-12 po daily ity of r alafen 00:00: [place] (DESCOVY) 00 Medical tablet Branch emtricita Yes [id number] Take one Univers ne-tenofovi 9-12 po daily ity of r alafen 00:00: [place] (DESCOVY) 00 Medical tablet Branch emtricita Yes [id number] Take one Univers ne-tenofovi 9-12 po daily ity of r alafen 00:00: [place] (DESCOVY) 00 Medical tablet Branch emtricita Yes [id number] Take one Univers ne-tenofovi 9-12 po daily ity of r alafen 00:00: [place] (DESCOVY) 00 Medical tablet Branch emtricita Yes [id number] Take one Univers ne-tenofovi 9-12 po daily ity of r alafen 00:00: [place] (DESCOVY) 00 Medical tablet Branch emtricita 0 Yes [id number] Take one Univers ne-tenofovi 9-12 po daily ity of r alafen 00:00: [place] (DESCOVY) 00 Medical tablet Branch emtricitabi 0 Yes [id number] Take one Univers ne-tenofovi 9-12 po daily ity of r alafen 00:00: [place] (DESCOVY) 00 Medical tablet Branch emtricitabi 0 2023- No [id number] Take one Univers ne-tenofovi 9-12 04-04 po daily ity of r alafen 00:00: 00:00 [place] (DESCOVY) 00 :00 Medical tablet Branch emtricitabi 0 2023- No [id number] Take one Univers ne-tenofovi 9-12 04-04 po daily ity of r alafen 00:00: 00:00 [place] (DESCOVY) 00 :00 Medical tablet Branch naproxen 2021-0 Yes [id number] 500mg Take 1 U nivers (NAPROSYN) 7-24 tablet by ity of 500 mg 00:00: mouth in [place] tablet 00 the Medical morning Branch and 1 tablet in the evening. Take with meals. methocarbam 2021-0 Yes [id number] 500mg Take 1 [facility] oL 500 mg 7-24 tablet by ity o f tablet 00:00: mouth 4 [place] ([facility]) Medical times Branch daily. naproxen 2021-0 Yes [id number] 500mg Take 1 U nivers (NAPROSYN) 7-24 tablet by ity of 500 mg 00:00: mouth in [place] tablet 00 the Medical morning Branch and 1 tablet in the evening. Take with meals. methocarbam 2021-0 Yes [id number] 500mg Take 1 [facility] oL 500 mg 7-24 tablet by ity o f tablet 00:00: mouth 4 [place] 00 ([facility]) Medical times Branch daily. naproxen 2-0 Yes [id number] 500mg Take 1 U nivers (NAPROSYN) 7-24 tablet by ity of 500 mg 00:00: mouth in [place] tablet 00 the Medical morning Branch and 1 tablet in the evening. Take with meals. methocarbam 2-0 Yes [id number] 500mg Take 1 [facility] oL 500 mg 7-24 tablet by ity o f tablet 00:00: mouth 4 [place] 00 (four) Medical times Branch daily. naproxen 2021- No [id number] 500mg Take 1 Univers (NAPROSYN) 7-24 10-14 tablet by ity of 500 mg 00:00: 00:00 mouth in [place] tablet 00 :00 the Medical morning Branch and 1 tablet in the evening. Take with meals. methocarbam 2021- No [id number] 500mg Take 1 [facility] oL 500 mg 12-13 10-14 tablet by ity of tablet 00:00: 00:00 mouth 4 [place] 00 :00 (four) Medical times Branch daily. naproxen 2021- No [id number] 500mg Take 1 Univers (NAPROSYN) 12-13 10-14 tablet by ity of 500 mg 00:00: 00:00 mouth in [place] tablet 00 :00 the Medical morning Branch and 1 tablet in the evening. Take with meals. methocarbam 2021- No [id number] 500mg Take 1 [facility] oL 500 mg 12-13 10-14 tablet by ity of tablet 00:00: 00:00 mouth 4 [place] 00 :00 (four) Medical times Branch daily. [...] daily. Branch traZODONE 2021- No Take by [facility] [place] [facility] ers (DESYREL) 11-20 mouth at ity o f 10 mg/mL 09:10: 00:00 bedtime. [place] oral 28 :00 Medical suspension Branch hydralAZINE Yes 25mg Take 25 mg Univers (APRESOLINE - by mouth ity of ) 25 mg 08:47: daily. [place] tablet 47 Medical Branch cephALEXin 2021- No [id number] 500mg Take 1 [facility] (KEFLEX) 10-24 capsule [...] 7-10). Indication s: acute pain buPROPion Yes [id number] 150mg Take 1 U nivers XL 4-12 tablet by ity of (WELLBUTRIN 00:00: mouth [place] XL) 150 mg 00 daily. Medical 24 hr Branch tablet busPIRone Yes [id number] 30mg Take 1 Un matt 30 mg 4-12 tablet by ity of tablet 00:00: mouth 2 [place] 00 (two) Medical times Branch daily. SERTraline Yes [id number] 200mg Take 2 [facility] 100 mg 4-12 tablets by ity of tablet 00:00: mouth [place] 00 daily. Medical Branch buPROPion Yes [id number] 150mg Take 1 U nivers XL 4-12 tablet by ity of (WELLBUTRIN 00:00: mouth [place] XL) 150 mg 00 daily. Medical 24 hr Branch tablet busPIRone Yes [id number] 30mg Take 1 Un matt 30 mg 4-12 tablet by ity of tablet 00:00: mouth 2 [place] 00 (two) Medical times Branch daily. SERTraline Yes [id number] 200mg Take 2 [facility] 100 mg 4-12 tablets by ity of tablet 00:00: mouth [place] 00 daily. Medical Branch buPROPion Yes [id number] 150mg Take 1 U nivers XL 4-12 tablet by ity of (WELLBUTRIN 00:00: mouth [place] XL) 150 mg 00 daily. Medical 24 hr Branch tablet busPIRone 2022-0 Yes [id number] 30mg Take 1 Un matt 30 mg 4-12 tablet by ity of tablet 00:00: mouth 2 [place] 00 (two) Medical times Branch daily. SERTraline 2021-0 Yes [id number] 200mg Take 2 [facility] 100 mg 4-12 tablets by ity of tablet 00:00: mouth [place] 00 daily. Medical Branch buPROPion 2021-0 Yes [id number] 150mg Take 1 U nivers XL 4-12 tablet by ity of (WELLBUTRIN 00:00: mouth [place] XL) 150 mg 00 daily. Medical 24 hr Branch tablet busPIRone 2021-0 Yes [id number] 30mg Take 1 Un matt 30 mg 4-12 tablet by ity of tablet 00:00: mouth 2 [place] 00 (two) Medical times Branch daily. SERTraline 2021-0 Yes [id number] 200mg Take 2 [facility] 100 mg 4-12 tablets by ity of tablet 00:00: mouth [place] 00 daily. Medical Branch buPROPion 2021-0 Yes [id number] 150mg Take 1 U nivers XL 4-12 tablet by ity of (WELLBUTRIN 00:00: mouth [place] XL) 150 mg 00 daily. Medical 24 hr Branch tablet busPIRone 2021-0 Yes [id number] 30mg Take 1 Un matt 30 mg 4-12 tablet by ity of tablet 00:00: mouth 2 [place] 00 (two) Medical times Branch daily. SERTraline 2021-0 Yes [id number] 200mg Take 2 [facility] 100 mg 4-12 tablets by ity of tablet 00:00: mouth [place] 00 daily. Medical Branch buPROPion 2021-0 Yes [id number] 150mg Take 1 U nivers XL 4-12 tablet by ity of (WELLBUTRIN 00:00: mouth [place] XL) 150 mg 00 daily. Medical 24 hr Branch tablet busPIRone 2021-0 Yes [id number] 30mg Take 1 Un matt 30 mg 4-12 tablet by ity of tablet 00:00: mouth 2 [place] 00 (two) Medical times Branch daily. SERTraline 2021-0 Yes [id number] 200mg Take 2 [facility] 100 mg 4-12 tablets by ity of tablet 00:00: mouth [place] 00 daily. Medical Branch buPROPion 2021-0 Yes [id number] 150mg Take 1 U nivers XL 4-12 tablet by ity of (WELLBUTRIN 00:00: mouth [place] XL) 150 mg 00 daily. Medical 24 hr Branch tablet busPIRone 2021-0 Yes [id number] 30mg Take 1 Un matt 30 mg 4-12 tablet by ity of tablet 00:00: mouth 2 00 (two) Medical times Branch daily. SERTraline 2021-0 Yes [id number] 200mg Take 2 [facility] 100 mg 4-12 tablets by ity of tablet 00:00: mouth [place] 00 daily. Medical Branch buPROPion 2021-0 Yes [id number] 150mg Take 1 U nivers XL 4-12 tablet by ity of (WELLBUTRIN 00:00: mouth [place] XL) 150 mg 00 daily. Medical 24 hr Branch tablet busPIRone 2021-0 Yes [id number] 30mg Take 1 Un matt 30 mg 4-12 tablet by ity of tablet 00:00: mouth 2 (two) Medical times Branch daily. SERTraline 2021-0 Yes [id number] 200mg Take 2 [facility] 100 mg 4-12 tablets by ity of tablet 00:00: mouth [place] 00 daily. Medical Branch buPROPion 2021-0 Yes [id number] 150mg Take 1 U nivers XL 4-12 tablet by ity of (WELLBUTRIN 00:00: mouth [place] XL) 150 mg 00 daily. Medical 24 hr Branch tablet busPIRone 2021-0 Yes [id number] 30mg Take 1 Un matt 30 mg 4-12 tablet by ity of tablet 00:00: mouth 2 (two) Medical times Branch daily. SERTraline 2021-0 Yes [id number] 200mg Take 2 [facility] 100 mg 4-12 tablets by ity of tablet 00:00: mouth [place] 00 daily. Medical Branch buPROPion 2021-0 Yes [id number] 150mg Take 1 U nivers XL 4-12 tablet by ity of (WELLBUTRIN 00:00: mouth [place] XL) 150 mg 00 daily. Medical 24 hr Branch tablet busPIRone 2021-0 Yes [id number] 30mg Take 1 Un matt 30 mg 4-12 tablet by ity of tablet 00:00: mouth 2 00 (two) Medical times Branch daily. SERTraline 2021-0 Yes [id number] 200mg Take 2 [facility] 100 mg 4-12 tablets by ity of tablet 00:00: mouth [place] 00 daily. Medical Branch buPROPion 2021-0 Yes [id number] 150mg Take 1 U nivers XL 4-12 tablet by ity of (WELLBUTRIN 00:00: mouth [place] XL) 150 mg 00 daily. Medical 24 hr Branch tablet busPIRone 2021-0 Yes [id number] 30mg Take 1 Un matt 30 mg 4-12 tablet by ity of tablet 00:00: mouth 2 [place] 00 (two) Medical times Branch daily. SERTraline 0 Yes [id number] 200mg Take 2 [facility] 100 mg 4-12 tablets by ity of tablet 00:00: mouth [place] 00 daily. Medical Branch buPROPion 0 Yes [id number] 150mg Take 1 U nivers XL 4-12 tablet by ity of (WELLBUTRIN 00:00: mouth [place] XL) 150 mg 00 daily. Medical 24 hr Branch tablet busPIRone 2021-0 Yes [id number] 30mg Take 1 Un matt 30 mg 4-12 tablet by ity of tablet 00:00: mouth 2 [place] 00 (two) Medical times Branch daily. SERTraline 0 Yes [id number] 200mg Take 2 [facility] 100 mg 4-12 tablets by ity of tablet 00:00: mouth [place] 00 daily. Medical Branch buPROPion 0 Yes [id number] 150mg Take 1 U nivers XL 4-12 tablet by ity of (WELLBUTRIN 00:00: mouth [place] XL) 150 mg 00 daily. Medical 24 hr Branch tablet busPIRone 2021-0 Yes [id number] 30mg Take 1 Un matt 30 mg 4-12 tablet by ity of tablet 00:00: mouth 2 [place] 00 (two) Medical times Branch daily. SERTraline 2021-0 Yes [id number] 200mg Take 2 [facility] 100 mg 4-12 tablets by ity of tablet 00:00: mouth [place] 00 daily. Medical Branch buPROPion 2021-0 Yes [id number] 150mg Take 1 U nivers XL 4-12 tablet by ity of (WELLBUTRIN 00:00: mouth [place] XL) 150 mg 00 daily. Medical 24 hr Branch tablet busPIRone 2021-0 Yes [id number] 30mg Take 1 Un matt 30 mg 4-12 tablet by ity of tablet 00:00: mouth 2 [place] 00 (two) Medical times Branch daily. SERTraline 2021-0 Yes [id number] 200mg Take 2 [facility] 100 mg 4-12 tablets by it[facility] of tablet 00:00: mouth [place] 00 daily. Medical Branch buPROPion 2021-0 Yes [id number] 150mg Take 1 U nivers XL 4-12 tablet by ity of (WELLBUTRIN 00:00: mouth [place] XL) 150 mg 00 daily. Medical 24 hr Branch tablet busPIRone 2021-0 Yes [id number] 30mg Take 1 Un matt 30 mg 4-12 tablet by ity of tablet 00:00: mouth 2 00 (two) Medical times Branch daily. SERTraline 2021-0 Yes [id number] 200mg Take 2 [facility] 100 mg 4-12 tablets by ity of tablet 00:00: mouth [place] 00 daily. Medical Branch buPROPion 0 Yes [id number] 150mg Take 1 U nivers XL 4-12 tablet by ity of (WELLBUTRIN 00:00: mouth [place] XL) 150 mg 00 daily. Medical 24 hr Branch tablet busPIRone 2021-0 Yes [id number] 30mg Take 1 Un matt 30 mg 4-12 tablet by ity of tablet 00:00: mouth 2 00 (two) Medical times Branch daily. SERTraline 2021-0 Yes [id number] 200mg Take 2 [facility] 100 mg 4-12 tablets by ity of tablet 00:00: mouth [place] 00 daily. Medical Branch buPROPion 2021-0 Yes [id number] 150mg Take 1 U nivers XL 4-12 tablet by ity of (WELLBUTRIN 00:00: mouth [place] XL) 150 mg 00 daily. Medical 24 hr Branch tablet busPIRone 2021-0 Yes [id number] 30mg Take 1 Un matt 30 mg 4-12 tablet by ity of tablet 00:00: mouth 2 [place] 00 (two) Medical times Branch daily. SERTraline 2021-0 Yes [id number] 200mg Take 2 [facility] 100 mg 4-12 tablets by ity of tablet 00:00: mouth [place] 00 daily. Medical Branch buPROPion 2021-0 Yes [id number] 150mg Take 1 U nivers XL 4-12 tablet by ity of (WELLBUTRIN 00:00: mouth [place] XL) 150 mg 00 daily. Medical 24 hr Branch tablet busPIRone 2021-0 Yes [id number] 30mg Take 1 Un matt 30 mg 4-12 tablet by ity of tablet 00:00: mouth 2 [place] 00 (two) Medical times Branch daily. SERTraline 0 Yes [id number] 200mg Take 2 [facility] 100 mg 4-12 tablets by ity of tablet 00:00: mouth [place] 00 daily. Medical Branch buPROPion 0 Yes [id number] 150mg Take 1 [facility] nivers XL 4-12 tablet by ity of (WELLBUTRIN 00:00: mouth [place] XL) 150 mg 00 daily. Medical 24 hr Branch tablet busPIRone 2021-0 Yes [id number] 30mg Take 1 Un matt 30 mg 4-12 tablet by ity of tablet 00:00: mouth 2 (two) Medical times Branch daily. SERTraline 0 Yes [id number] 200mg Take 2 [facility] 100 mg 4-12 tablets by ity of tablet 00:00: mouth [place] 00 daily. Medical Branch buPROPion 0 Yes [id number] 150mg Take 1 [facility] nivers XL 4-12 tablet by ity of (WELLBUTRIN 00:00: mouth [place] XL) 150 mg 00 daily. Medical 24 hr Branch tablet busPIRone 2021-0 Yes [id number] 30mg Take 1 Un matt 30 mg 4-12 tablet by ity of tablet 00:00: mouth 2 00 (two) Medical times Branch daily. SERTraline 2021-0 Yes [id number] 200mg Take 2 [facility] 100 mg 4-12 tablets by ity of tablet 00:00: mouth [place] 00 daily. Medical Branch buPROPion 2021-0 Yes [id number] 150mg Take 1 [facility] nivers XL 4-12 tablet by ity of (WELLBUTRIN 00:00: mouth [place] XL) 150 mg 00 daily. Medical 24 hr Branch tablet busPIRone 2021-0 Yes [id number] 30mg Take 1 Un matt 30 mg 4-12 tablet by ity of tablet 00:00: mouth 2 00 (two) Medical times Branch daily. SERTraline 2021-0 Yes [id number] 200mg Take 2 [facility] 100 mg 4-12 tablets by ity of tablet 00:00: mouth [place] 00 daily. Medical Branch buPROPion 2021-0 Yes [id number] 150mg Take 1 [facility] nivers XL 4-12 tablet by ity of (WELLBUTRIN 00:00: mouth [place] XL) 150 mg 00 daily. Medical 24 hr Branch tablet busPIRone 2021-0 Yes [id number] 30mg Take 1 Un matt 30 mg 4-12 tablet by ity of tablet 00:00: mouth 2 [place] 00 (two) Medical times Branch daily. SERTraline 2021-0 Yes [id number] 200mg Take 2 [facility] 100 mg 4-12 tablets by ity of tablet 00:00: mouth [place] 00 daily. Medical Branch buPROPion 2021-0 Yes [id number] 150mg Take 1 [facility] nivers XL 4-12 tablet by ity of (WELLBUTRIN 00:00: mouth [place] XL) 150 mg 00 daily. Medical 24 hr Branch tablet busPIRone 2021-0 Yes [id number] 30mg Take 1 Un matt 30 mg 4-12 tablet by ity of tablet 00:00: mouth 2 [place] 00 (two) Medical times Branch daily. SERTraline 2021-0 Yes [id number] 200mg Take 2 [facility] 100 mg 4-12 tablets by ity of tablet 00:00: mouth [place] 00 daily. Medical Branch buPROPion 2021-0 Yes [id number] 150mg Take 1 [facility] nivers XL 4-12 tablet by ity of (WELLBUTRIN 00:00: mouth [place] XL) 150 mg 00 daily. Medical 24 hr Branch tablet busPIRone 2021-0 Yes [id number] 30mg Take 1 Un matt 30 mg 4-12 tablet by ity of tablet 00:00: mouth 2 [place] 00 (two) Medical times Branch daily. SERTraline 2021-0 Yes [id number] 200mg Take 2 [facility] 100 mg 4-12 tablets by ity of tablet 00:00: mouth [place] 00 daily. Medical Branch raltegravir 2021-0 Yes [id number] 400mg Take 1 [facility] (ISENTRESS) 3-28 tablet by ity of 400 mg 00:00: mouth 2 [place] tablet 00 (two) Medical times Branch daily. raltegravir 2021-0 Yes [id number] 400mg Take 1 [facility] (ISENTRESS) 3-28 tablet by ity of 400 mg 00:00: mouth 2 [place] tablet 00 (two) Medical times Branch daily. raltegravir 2022-0 Yes [id number] 400mg Take 1 [facility] (ISENTRESS) 3-28 tablet by ity of 400 mg 00:00: mouth 2 [place] tablet 00 (two) Medical times Branch daily. raltegravir 2022-0 Yes [id number] 400mg Take 1 [facility] (ISENTRESS) 3-28 tablet by ity of 400 mg 00:00: mouth 2 [place] tablet 00 (two) Medical times Branch daily. raltegravir 2022-0 Yes [id number] 400mg Take 1 [facility] (ISENTRESS) 3-28 tablet by ity of 400 mg 00:00: mouth 2 [place] tablet 00 (two) Medical times Branch daily. raltegravir 2022-0 Yes [id number] 400mg Take 1 [facility] (ISENTRESS) 3-28 tablet by ity of 400 mg 00:00: mouth 2 [place] tablet 00 (two) Medical times Branch daily. raltegravir 2-0 Yes [id number] 400mg Take 1 [facility] (ISENTRESS) 3-28 tablet by ity of 400 mg 00:00: mouth 2 [place] tablet 00 (two) Medical times Branch daily. raltegravir 2-0 Yes [id number] 400mg Take 1 [facility] (ISENTRESS) 3-28 tablet by ity of 400 mg 00:00: mouth 2 [place] tablet 00 (two) Medical times Branch daily. raltegravir 2022-0 Yes [id number] 400mg Take 1 [facility] (ISENTRESS) 3-28 tablet by ity of 400 mg 00:00: mouth 2 [place] tablet 00 (two) Medical times Branch daily. raltegravir 2022-0 Yes [id number] 400mg Take 1 [facility] (ISENTRESS) 3-28 tablet by ity of 400 mg 00:00: mouth 2 [place] tablet 00 (two) Medical times Branch daily. raltegravir 2022-0 Yes [id number] 400mg Take 1 [facility] (ISENTRESS) 3-28 tablet by ity of 400 mg 00:00: mouth 2 [place] tablet 00 (two) Medical times Branch daily. raltegravir 2022-0 Yes [id number] 400mg Take 1 [facility] (ISENTRESS) 3-28 tablet by ity of 400 mg 00:00: mouth 2 [place] tablet 00 (two) Medical times Branch daily. raltegravir 2021-0 Yes [id number] 400mg Take 1 [facility] (ISENTRESS) 3-28 tablet by ity of 400 mg 00:00: mouth 2 [place] tablet 00 (two) Medical times Branch daily. raltegravir 2021-0 Yes [id number] 400mg Take 1 [facility] (ISENTRESS) 3-28 tablet by ity of 400 mg 00:00: mouth 2 [place] tablet 00 (two) Medical times Branch daily. raltegravir 2021-0 Yes [id number] 400mg Take 1 [facility] (ISENTRESS) 3-28 tablet by ity of 400 mg 00:00: mouth 2 [place] tablet 00 (two) Medical times Branch daily. raltegravir 2021-0 Yes [id number] 400mg Take 1 [facility] (ISENTRESS) 3-28 tablet by ity of 400 mg 00:00: mouth 2 [place] tablet 00 (two) Medical times Branch daily. raltegravir 2021-0 Yes [id number] 400mg Take 1 [facility] (ISENTRESS) 3-28 tablet by ity of 400 mg 00:00: mouth 2 [place] tablet 00 (two) Medical times Branch daily. raltegravir 2021-0 Yes [id number] 400mg Take 1 [facility] (ISENTRESS) 3-28 tablet by ity of 400 mg 00:00: mouth 2 [place] tablet 00 (two) Medical times Branch daily. raltegravir 2021-0 Yes [id number] 400mg Take 1 [facility] (ISENTRESS) 3-28 tablet by ity of 400 mg 00:00: mouth 2 [place] tablet 00 (two) Medical times Branch daily. raltegravir 2021-0 Yes [id number] 400mg Take 1 [facility] (ISENTRESS) 3-28 tablet by ity of 400 mg 00:00: mouth 2 [place] tablet 00 (two) Medical times Branch daily. raltegravir 2021-0 3- No [id number] 400mg Take 1 [facility] (ISENTRESS) 3-28 05-08 tablet by it y of 400 mg 00:00: 00:00 mouth 2 [place] tablet 00 :00 (two) Medical times Branch daily. LORazepam 1 2021-0 2- No [id number] 1mg Take 1 [facility] mg tablet 3-21 [...] times a tablet day. emtricitabi 2021- No [id number] Take one [facility] ne-tenofovi - 09-12 po daily ity of r alafen 00:00: 00:00 [place] (DESCOVY) 00 :00 Medical tablet Branch metoprolol Yes [id number] Take 1 [facility] tartrate 7-26 [facility] (Lopressor) 00:00: (100 mg 100 MG 00 total) by tablet mouth 2 (two) times a day AND 0.5 tablets (50 mg total) every night. metoprolol Yes [id number] Take 1 [facility] tartrate 7-26 [facility] [...] area in groin) hydrALAZINE 0 Yes 50mg Q.[id number] Take 50 mg [facility] (APRESOLINE 7-19 [id number] [address] mouth [facility] ) 50 MG [...] (affected area in groin) hydrALAZINE Yes 50mg Q.[id number] Take 50 mg [facility] (APRESOLINE 7-19 [id number] [facility] mouth [facility] ) 50 MG [...] area in groin) hydrALAZINE 0 Yes 50mg Q.[id number] Take 50 mg [facility] (APRESOLINE 7-19 [id number] [address] mouth 3 [facility] ) 50 MG [...] (affected area in groin) hydrALAZINE Yes 50mg Q.[id number] Take 50 mg [facility] (APRESOLINE 7-19 [id number] [facility] mouth 3 [facility] ) 50 MG [...] (affected area in groin) hydrALAZINE Yes 50mg Q.[id number] Take 50 mg [facility] (APRESOLINE 7-19 [id number] [facility] mouth 3 [facility] ) 50 MG [...] (affected area in groin) hydrALAZINE Yes 50mg Q.[id number] Take 50 mg [facility] (APRESOLINE 7-19 [id number] [address] mouth 3 [facility] ) 50 MG [...] area in groin) hydrALAZINE 0 Yes 50mg Q.[id number] Take 50 mg [facility] (APRESOLINE 7-19 [id number] [facility] mouth 3 [facility] ) 50 MG [...] (affected area in groin) hydrALAZINE Yes 50mg Q.[id number] Take 50 mg [facility] (APRESOLINE 7-19 [id number] [address] mouth 3 [facility] ) 50 MG [...] (affected area in groin) hydrALAZINE Yes 50mg Q.[id number] Take 50 mg [facility] (APRESOLINE 7-19 [id number] [facility] mouth 3 [facility] ) 50 MG [...] area in groin) hydrALAZINE 0 Yes 50mg Q.[id number] Take 50 mg [facility] (APRESOLINE 7-19 [id number] [address] mouth 3 [facility] ) 50 MG [...] area in groin) hydrALAZINE 0 Yes 50mg Q.[id number] Take 50 mg [facility] (APRESOLINE 7-19 [id number] [facility] mouth 3 [facility] ) 50 MG [...] (affected area in groin) hydrALAZINE Yes 50mg Q.[id number] Take 50 mg [facility] (APRESOLINE 7-19 [id number] [facility] mouth 3 [facility] ) 50 MG [...] area in groin) hydrALAZINE 0 Yes 50mg Q.[id number] Take 50 mg [facility] (APRESOLINE -19 [id number] [facility] mouth [facility] ) 50 MG [...] area in groin) hydrALAZINE 0 Yes 50mg Q.[id number] Take 50 mg [facility] (APRESOLINE 7-19 [id number] mouth 3 [address] ) 50 MG [...] area in groin) hydrALAZINE 0 Yes 50mg Q.[id number] Take 50 mg [facility] (APRESOLINE 7-19 [id number] [facility] mouth [facility] ) 50 MG [...] area in groin) hydrALAZINE 0 Yes 50mg Q.[id number] Take 50 mg [facility] (APRESOLINE 12-08 [id number] [facility] mouth 3 [facility] ) 50 MG [...] area in groin) hydrALAZINE 2020-0 Yes 50mg Q.[id number] Take 50 mg [facility] (APRESOLINE 7-[id number] mouth [facility] ) 50 MG [...] area in groin) hydrALAZINE 0 Yes 50mg Q.[id number] Take 50 mg [facility] (APRESOLINE 7-19 [id number] mouth 3 [facility] ) 50 MG [...] (affected area in groin) hydrALAZINE Yes 50mg Q.[id number] Take 50 mg [facility] (APRESOLINE 7- [id number] by mouth 3 st ) 50 MG [...] area in groin) hydrALAZINE 2020-0 Yes 50mg Q.[id number] Take 50 mg [facility] (APRESOLINE 7-19 [id number] [address] mouth 3 [facility] ) 50 MG [...] area in groin) hydrALAZINE 2020-0 Yes 50mg Q.[id number] Take 50 mg [facility] (APRESOLINE 7-19 [id number] mouth 3 [facility] ) 50 MG [...] area in groin) hydrALAZINE 0 Yes 50mg Q.[id number] Take 50 mg [facility] (APRESOLINE -19 [id number] [address] mouth [facility] ) 50 MG [...] area in groin) hydrALAZINE 0 Yes 50mg Q.[id number] Take 50 mg [facility] (APRESOLINE -19 [id number] by mouth 3 [facility] ) 50 MG [...] area in groin) hydrALAZINE 0 Yes 50mg Q.[id number] Take 50 mg [facility] (APRESOLINE 7-19 [id number] [facility] mouth 3 [facility] ) 50 MG [...] area in groin) hydrALAZINE 0 Yes 50mg Q.[id number] Take 50 mg [facility] (APRESOLINE 7-19 [id number] [facility] mouth 3 [facility] ) 50 MG [...] (affected area in groin) hydrALAZINE Yes 50mg Q.[id number] Take 50 mg [facility] (APRESOLINE 7-19 [id number] mouth 3 [address] ) 50 MG [...] area in groin) hydrALAZINE 2020-0 Yes 50mg Q.[id number] Take 50 mg [facility] (APRESOLINE 7-19 [id number] [facility] mouth 3 [facility] ) 50 MG [...] area in groin) hydrALAZINE 0 Yes 50mg Q.[id number] Take 50 mg [facility] (APRESOLINE 7-19 [id number] by mouth 3 [facility] ) 50 MG [...] (affected area in groin) hydrALAZINE Yes 50mg Q.[id number] Take 50 mg [facility] (APRESOLINE 7-19 [id number] [address] mouth 3 [facility] ) 50 MG [...] area in groin) hydrALAZINE 0 Yes 50mg Q.18013579 Take 50 mg [facility] (APRESOLINE -19 [id number] [facility] mouth 3 [facility] ) 50 MG [...] area in groin) hydrALAZINE 2021-0 Yes 50mg Q.[id number] Take 50 mg [facility] (APRESOLINE 7-19 [id number] [facility] mouth 3 [facility] ) 50 MG [...] (affected area in groin) hydrALAZINE Yes 50mg Q.[id number] Take 50 mg [facility] (APRESOLINE 7-19 [id number] mouth 3 [facility] ) 50 MG [...] area in groin) hydrALAZINE 0 Yes 50mg Q.[id number] Take 50 mg [facility] (APRESOLINE 12-08 [id number] by mouth 3 [facility] ) 50 MG [...] area in groin) hydrALAZINE 2020-0 Yes 50mg Q.[id number] Take 50 mg [facility] (APRESOLINE 7-19 [id number] [facility] mouth 3 [facility] ) 50 MG [...] area in groin) hydrALAZINE 0 Yes 50mg Q.[id number] Take 50 mg [facility] (APRESOLINE 7-[id number] mouth 3 [facility] ) 50 MG [...] (affected area in groin) hydrALAZINE Yes 50mg Q.[id number] Take 50 mg [facility] (APRESOLINE 7-19 [id number] [facility] mouth 3 [facility] ) 50 MG [...] area in groin) hydrALAZINE 0 Yes 50mg Q.[id number] Take 50 mg [facility] (APRESOLINE 7-19 [id number] mouth 3 [facility] ) 50 MG [...] area in groin) hydrALAZINE 0 Yes 50mg Q.[id number] Take 50 mg [facility] (APRESOLINE 7-19 [id number] [facility] mouth 3 [facility] ) 50 MG [...] (affected area in groin) hydrALAZINE Yes 50mg Q.[id number] Take 50 mg [facility] (APRESOLINE 7-19 [id number] [facility] mouth 3 [facility] ) 50 MG [...] (affected area in groin) hydrALAZINE Yes 50mg Q.[id number] Take 50 mg [facility] (APRESOLINE 7-19 [id number] [address] mouth 3 [facility] ) 50 MG [...] area in groin) hydrALAZINE 2021-0 Yes 50mg Q.75392202 Take 50 mg [facility] (APRESOLINE 7-19 [id number] mouth 3 [facility] ) 50 MG [...] (affected area in groin) hydrALAZINE Yes 50mg Q.76372950 Take 50 mg [facility] (APRESOLINE 7-[id number] mouth 3 [facility] ) 50 MG [...] (affected area in groin) hydrALAZINE Yes 50mg Q.[id number] Take 50 mg [facility] (APRESOLINE 7-19 [id number] mouth 3 [address] ) 50 MG [...] area in groin) hydrALAZINE 0 Yes 50mg Q.[id number] Take 50 mg [facility] (APRESOLINE 7-[id number] mouth 3 [facility] ) 50 MG [...] (affected area in groin) hydrALAZINE Yes 50mg Q.[id number] Take 50 mg [facility] (APRESOLINE 7-[id number] mouth 3 [facility] ) 50 MG [...] (affected area in groin) hydrALAZINE Yes 50mg Q.[id number] Take 50 mg [facility] (APRESOLINE 7-[id number] mouth 3 [facility] ) 50 MG [...] area in groin) hydrALAZINE 0 Yes 50mg Q.[id number] Take 50 mg [facility] (APRESOLINE 7-[id number] mouth 3 [facility] ) 50 MG [...] area in groin) hydrALAZINE 0 Yes 50mg Q.[id number] Take 50 mg [facility] (APRESOLINE 7-[id number] mouth [facility] [address] ) 50 MG [...] (affected area in groin) hydrALAZINE Yes 50mg Q.[id number] Take 50 mg [facility] (APRESOLINE 7-[id number] mouth [facility] ) 50 MG [...] area in groin) hydrALAZINE 0 Yes 50mg Q.[id number] Take 50 mg [facility] (APRESOLINE 7-19 [id number] mouth [facility] ) 50 MG [...] area in groin) hydrALAZINE 0 Yes 50mg Q.14958856 Take 50 mg [facility] (APRESOLINE 7-[id number] mouth 3 [facility] ) 50 MG [...] (affected area in groin) hydrALAZINE Yes 50mg Q.[id number] Take 50 mg [facility] (APRESOLINE 7-[id number] mouth 3 [address] ) 50 MG [...] area in groin) hydrALAZINE 0 Yes 50mg Q.[id number] Take 50 mg [facility] (APRESOLINE 7-19 [id number] [address] mouth [facility] ) 50 MG [...] (affected area in groin) hydrALAZINE Yes 50mg Q.60781339 Take 50 mg [facility] (APRESOLINE 7-19 [id number] [address] mouth 3 [facility] ) 50 MG [...] (affected area in groin) hydrALAZINE Yes 50mg Q.76156066 Take 50 mg [facility] (APRESOLINE 7-[id number] mouth 3 [address] ) 50 MG [...] (affected area in groin) hydrALAZINE Yes 50mg Q.[id number] Take 50 mg [facility] (APRESOLINE 7-[id number] mouth 3 [address] ) 50 MG [...] area in groin) hydrALAZINE 0 Yes 50mg Q.10119092 Take 50 mg [facility] (APRESOLINE 7-[id number] mouth [address] ) 50 MG [...] area in groin) hydrALAZINE 0 Yes 50mg Q.[id number] Take 50 mg [facility] (APRESOLINE 7-[id number] mouth [facility] ) 50 MG [...] (affected area in groin) hydrALAZINE Yes 50mg Q.[id number] Take 50 mg [facility] (APRESOLINE 7-[id number] mouth 3 [address] ) 50 MG [...] area in groin) hydrALAZINE 0 Yes 50mg Q.[id number] Take 50 mg [facility] (APRESOLINE 7-[id number] mouth [facility] ) 50 MG [...] area in groin) hydrALAZINE 0 Yes 50mg Q.52477910 Take 50 mg [facility] (APRESOLINE 7-[id number] mouth [facility] [address] ) 50 MG [...] (affected area in groin) hydrALAZINE Yes 50mg Q.[id number] Take 50 mg [facility] (APRESOLINE 7-19 [id number] mouth 3 [facility] ) 50 MG [...] area in groin) hydrALAZINE 0 Yes 50mg Q.[id number] Take 50 mg [facility] (APRESOLINE 7-[id number] mouth [facility] ) 50 MG [...] area in groin) hydrALAZINE 2020-0 Yes 50mg Q.[id number] Take 50 mg [facility] (APRESOLINE 7-[id number] mouth [facility] [address] ) 50 MG [...] (affected area in groin) hydrALAZINE Yes 50mg Q.[id number] Take 50 mg [facility] (APRESOLINE 7-[id number] mouth [facility] [address] ) 50 MG [...] area in groin) hydrALAZINE 0 Yes 50mg Q.[id number] Take 50 mg [facility] (APRESOLINE 7-[id number] mouth [address] ) 50 MG [...] area in groin) hydrALAZINE 0 Yes 50mg Q.[id number] Take 50 mg [facility] (APRESOLINE 7-[id number] mouth [address] ) 50 MG [...] area in groin) hydrALAZINE 0 Yes 50mg Q.[id number] Take 50 mg [facility] (APRESOLINE 7-19 [id number] mouth [facility] ) 50 MG [...] [facility] 25 l nystatin-tr 2021-0 Yes [id number] Apply to [facility] iamcinolone 7-06 area(s) 3 ity of cream 00:00: (three) [place] 00 times Medical daily. Branch nystatin-tr 2021-0 Yes [id number] Apply to [facility] iamcinolone 7-06 area(s) 3 ity of cream 00:00: (three) [place] 00 times Medical daily. Branch nystatin-tr 2021-0 Yes [id number] Apply to [facility] iamcinolone 7-06 area(s) 3 ity of cream 00:00: (three) [place] 00 times Medical daily. Branch nystatin-tr 2021-0 Yes [id number] Apply to [facility] iamcinolone 7-06 area(s) 3 ity of cream 00:00: (three) [place] 00 times Medical daily. Branch nystatin-tr 2021-0 Yes [id number] Apply to [facility] iamcinolone 7-06 area(s) 3 ity of cream 00:00: (three) [place] 00 times Medical daily. Branch nystatin-tr 2021-0 Yes [id number] Apply to [facility] iamcinolone 7-06 area(s) 3 ity of cream 00:00: (three) [place] 00 times Medical daily. Branch nystatin-tr 2021-0 Yes [id number] Apply to [facility] iamcinolone 7-06 area(s) 3 ity of cream 00:00: (three) [place] 00 times Medical daily. Branch nystatin-tr 2021-0 Yes [id number] Apply to [facility] iamcinolone 7-06 area(s) 3 ity of cream 00:00: (three) [place] 00 times Medical daily. Branch nystatin-tr 2021-0 Yes [id number] Apply to [facility] iamcinolone 7-06 area(s) 3 ity of cream 00:00: (three) [place] 00 times Medical daily. Branch nystatin-tr 2021-0 Yes [id number] Apply to [facility] iamcinolone 7-06 area(s) 3 ity of cream 00:00: (three) [place] 00 times Medical daily. Branch nystatin-tr 2021-0 Yes [id number] Apply to [facility] iamcinolone 7-06 area(s) 3 ity of cream 00:00: (three) [place] 00 times Medical daily. Branch nystatin-tr 2021-0 Yes [id number] Apply to [facility] iamcinolone 7-06 area(s) 3 ity of cream 00:00: (three) [place] 00 times Medical daily. Branch nystatin-tr 2021-0 Yes [id number] Apply to [facility] iamcinolone 7-06 area(s) 3 ity of cream 00:00: (three) [place] 00 times Medical daily. Branch nystatin-tr 2021-0 Yes [id number] Apply to [facility] iamcinolone 7-06 area(s) 3 ity of cream 00:00: (three) [place] 00 times Medical daily. Branch nystatin-tr 2021-0 Yes [id number] Apply to [facility] iamcinolone 7-06 area(s) 3 ity of cream 00:00: (three) [place] 00 times Medical daily. Branch nystatin-tr 2021-0 Yes [id number] Apply to [facility] iamcinolone 7-06 area(s) 3 ity of cream 00:00: (three) [place] 00 times Medical daily. Branch nystatin-tr 2021-0 Yes [id number] Apply to [facility] iamcinolone 7-06 area(s) 3 ity of cream 00:00: (three) [place] 00 times Medical daily. Branch nystatin-tr 2021-0 Yes [id number] Apply to [facility] iamcinolone 7-06 area(s) 3 ity of cream 00:00: (three) [place] 00 times Medical daily. Branch nystatin-tr 2021-0 Yes [id number] Apply to [facility] iamcinolone 7-06 area(s) 3 ity of cream 00:00: (three) [place] 00 times Medical daily. Branch nystatin-tr 2021-0 Yes [id number] Apply to [facility] iamcinolone 7-06 area(s) 3 ity of cream 00:00: (three) [place] 00 times Medical daily. Branch nystatin-tr 2020-0 Yes [id number] Apply to [facility] iainolone 7-06 area(s) 3 ity of cream 00:00: (three) [place] 00 times Medical daily. Branch nystatin-tr 2020-0 Yes [id number] Apply to [facility] iamcinolone 7-06 area(s) 3 ity of cream 00:00: (three) [place] 00 times Medical daily. Branch nystatin-tr 2020-0 Yes [id number] Apply to [facility] iamcinolone 7-06 area(s) 3 ity of cream 00:00: (three) [place] 00 times Medical daily. Branch nystatin-tr 2020-0 Yes [id number] Apply to [facility] iainolone 7-06 area(s) 3 ity of cream 00:00: (three) [place] 00 times Medical daily. Branch budesonide- 2020- No 1{puff} QD Inhale 1 [facility] formoteroL 6-25 06-[address] (SYMBICORT) 14:37: 00:00 morning. H ospita 160-4.5 02 :00 l mcg/actuati on inhaler hydrALAZINE Yes [id number] 50mg Q.[id number] Take 1 [facility] (Apresoline 6-11 [id number] tablet (50 Health ) 50 MG 00:00: 3D mg total) tablet 00 by mouth 3 (three) times a day. hydrALAZINE Yes [id number] 50mg Q.60329930 Take 1 [facility] (Apresoline 6-11 [id number] tablet (50 Health ) 50 MG 00:00: [...] % 00:00: ointment 00 nystatin 2020- No [id number] Q.25D Take 5 mL [facility] (MYCOSTATIN 10-06 [...] ia 4-10 (Same as: l 14:00: Cordarone) [place] 00 Amlodipine No Notes: [facility] ia 4-10 (Same as: l 14:00: Norvasc) [place] 00 emtricitabi No Notes: Caesar lisa [...] ia 4-10 (Same as: l 14:00: Cordarone) [place] 00 Amlodipine No Notes: [facility] ia 4-10 (Same as: l 14:00: Norvasc) [place] 00 emtricitabi No Notes: Caesar lisa ne 200 MG / 4-10 (Same as: l tenofovir 14:00: Descovy) Herm ariel alafenamide 00 Non-formul 25 MG Oral nancy Tablet [Descovy] Sertraline No Notes: [facility]or ia 4-10 (Same as: l 14:00: Zoloft) [place] 00 pantoprazol No Notes: [facility] lisa e 4-10 Tablet l 14:00: should not [place] 00 be chewed or crushed. (Same as: Protonix) Amiodarone No Notes: [facility] ia 4-10 (Same as: l 14:00: Cordarone) [place] Amlodipine No Notes: [facility]or ia 4-10 (Same as: l 14:00: Norvasc) [place] emtricitabi No Notes: Caesar lisa ne [...] ia 4-10 (Same as: l 14:00: Cordarone) [place] Amlodipine No Notes: [facility]or ia 4-10 (Same as: l 14:00: Norvasc) [place] emtricitabi No Notes: Caesar lisa ne 200 MG / 4-10 (Same as: l tenofovir 14:00: Descovy) Herm ariel alafenamide 00 Non-formul 25 MG Oral nancy Tablet [Descovy] Sertraline No Notes: [facility]or ia 4-10 (Same as: l 14:00: Zoloft) [place] pantoprazol No Notes: Caesar lisa e 4-10 Tablet l 14:00: should not [place] 00 be chewed or crushed. (Same [...] e 4-10 Tablet l 14:00: should not [place] 00 be chewed or crushed. (Same as: Protonix) Amiodarone No Notes: Memor ia 4-10 (Same as: l 14:00: Cordarone) [place] 00 Amlodipine No Notes: Memor ia 4-10 (Same as: l 14:00: Norvasc) [place] emtricitabi No Notes: Caesar lisa ne 200 MG / 4-10 (Same as: l tenofovir 14:00: Descovy) Herm ariel alafenamide 00 Non-formul 25 MG Oral nancy Tablet [Descovy] Sertraline No Notes: [facility]or ia 4-10 (Same as: l 14:00: Zoloft) [place] 00 pantoprazol No Notes: Caesar lisa e 4-10 Tablet l 14:00: should not [place] 00 be chewed or crushed. (Same as: Protonix) Amiodarone No Notes: Memor ia 4-10 (Same as: l 14:00: Cordarone) [place] 00 Sucralfate No Notes: May M emoria 4-10 interfere l 02:00: w/enteral [place] 00 feeds - Take 1 hr before or 2 hr after antacids, dairy pdt, meals & minerals - On empty stomach. For patients unable to swallow tablet, dissolve in 10mL - 30mL of water or juice and stir before giving. (Same As: Carafate) Saline No Notes: [facility]oria Flush 0.9% 4-10 (Same as: l 02:00: BD [place] Posiflush) Eliquis No Notes: Memoria 4-10 Same as: l 02:00: Eliquis [place] 00 Hydralazine No Notes: Caesar lisa Hydrochlori 4-10 (Same as: l de 50 MG 02:00: Apresoline Her mit[place] Oral Tablet 00 ) May interfere w/enteral feedings Take With Food Sucralfate No Notes: May M emoria 4-10 interfere l 02:00: w/enteral [place] 00 feeds - Take 1 hr [...] M emoria 4-10 interfere l 02:00: w/enteral [place] 00 feeds - Take 1 hr before or 2 hr after antacids, dairy pdt, meals & minerals - On empty stomach. For patients unable to swallow tablet, dissolve in 10mL - 30mL of water or juice and stir before giving. (Same As: Carafate) Saline No Notes: [facility]oria Flush 0.9% 4-10 (Same as: l 02:00: BD [place] 00 Posiflush) Eliquis No Notes: Memoria 4-10 Same as: l 02:00: Eliquis [place] 00 Hydralazine No Notes: Caesar lsia Hydrochlori 4-10 (Same as: l de 50 MG 02:00: Apresoline Her mitchell Oral Tablet 00 ) May interfere w/enteral feedings Take With Food Sucralfate No Notes: May M emoria 4-10 interfere l 02:00: w/enteral [place] 00 feeds - Take 1 hr before or 2 hr after antacids, dairy pdt, meals & minerals - On empty stomach. For patients unable to swallow tablet, dissolve in 10mL - 30mL of water or juice and stir before giving. (Same As: Carafate) Saline No Notes: [facility] Flush 0.9% 4-10 (Same as: l 02:00: BD [place] 00 Posiflush) Eliquis No Notes: [facility]oria 4-10 Same as: l 02:00: Eliquis [place] Hydralazine No Notes: Caesar lisa Hydrochlori 4-10 (Same as: l de 50 MG 02:00: Apresoline Her mitchell Oral Tablet 00 ) May interfere w/enteral feedings Take With Food Sucralfate No Notes: May M emoria 4-10 interfere l 02:00: w/enteral [place] 00 feeds - Take 1 hr [...] Memoria 4-10 Same as: l 02:00: Eliquis [place] 00 Hydralazine No Notes: Caesar lisa Hydrochlori 4-10 (Same as: l de 50 MG 02:00: Apresoline Her [place] Oral Tablet 00 ) May interfere w/enteral feedings Take With Food Sucralfate No Notes: May M emoria 4-10 interfere l 02:00: w/enteral [place] 00 feeds - Take 1 hr before or 2 hr after antacids, dairy pdt, meals & minerals - On empty stomach. For patients unable to swallow tablet, dissolve in 10mL - 30mL of water or juice and stir before giving. (Same As: Carafate) Saline No Notes: [facility] Flush 0.9% 4-10 (Same as: l 02:00: BD [place] 00 Posiflush) Eliquis No Notes: Memoria 4-10 Same as: l 02:00: Eliquis [place] Hydralazine No Notes: Caesar lisa Hydrochlori 4-10 (Same as: l de 50 MG 02:00: Apresoline Her mitchell Oral Tablet 00 ) May interfere w/enteral feedings Take With Food Sucralfate No Notes: May M emoria 4-10 interfere l 02:00: w/enteral [place] 00 feeds - Take 1 hr before or 2 hr after antacids, dairy pdt, meals & minerals - On empty stomach. For patients unable to swallow tablet, dissolve in 10mL - 30mL of water or juice and stir before giving. (Same As: Carafate) Saline No Notes: [facility] Flush 0.9% 4-10 (Same as: l 02:00: BD [place] 00 Posiflush) Eliquis No Notes: Memoria 4-10 [...] not exceed l #3 00:12: 4gm/day of [place] acetaminop hen. (Same as: Tylenol with Codeine # 3) acetaminoph No Notes: Do M emoria en-codeine 4-10 not exceed l #3 00:12: 4gm/day of [place] acetaminop hen. (Same as: Tylenol with Codeine # 3) acetaminoph No Notes: Do M emoria en-codeine 4-10 not exceed l #3 00:12: 4gm/day of [place] 00 acetaminop hen. (Same as: Tylenol with Codeine # 3) acetaminoph No Notes: Do M emoria en-codeine 4-10 not exceed l #3 00:12: 4gm/day of [place] acetaminop hen. (Same as: Tylenol with Codeine # 3) Buspirone No Notes: Memori a 4-09 (Same As: l 22:00: BuSpar) [place] Lisinopril 2020-0 No 40 mg, 1 Mem oria 4-09 tab, l 22:00: Route: PO, [place] 00 Drug form: TAB, BID, Dosing [...] Tablet 22:00: Route: [facility] form: TAB, BID, Dosing Weight [...] oria 4-09 tab, l 22:00: Route: PO, [place] 00 Drug form: TAB, BID, Dosing Weight 97.273, kg, Start date: 08/29/20 17:00:00 CDT, Duration: 30 day, Stop date: 09/28/20 9:00:00 CDT metoprolol 2021-0 No 100 mg, 1 Me moria tartrate 4-09 tab, l 22:00: Route: PO, [place] 00 Drug form: TAB, BID, Dosing [...] tartrate 4-09 tab, l 22:00: Route: PO, [place] 00 Drug form: TAB, BID, Dosing [...] oria 4-09 tab, l 22:00: Route: PO, [place] 00 Drug form: TAB, BID, Dosing [...] oria 4-09 tab, l 22:00: Route: PO, [place] 00 Drug form: TAB, BID, Dosing Weight 97.273, kg, Start date: 08/29/20 17:00:00 CDT, Duration: 30 day, Stop date: 09/28/20 9:00:00 CDT metoprolol 2021-0 No 100 mg, 1 Me moria tartrate 4-09 tab, l 22:00: Route: PO, [place] 00 Drug form: TAB, BID, Dosing [...] Notes: Memoria 4-09 (Same l 17:07: as:MORPhin [place] 00 e Sulfate) Morphine No Notes: Memoria 4-09 (Same l 17:07: as:MORPhin [place] 00 e Sulfate) Morphine No Notes: Memoria 4-09 (Same l 17:07: as:MORPhin [place] 00 e Sulfate) Morphine No Notes: Memoria 4-09 (Same l 17:07: as:MORPhin [place] 00 e Sulfate) Morphine No Notes: Memoria 4-09 (Same l 17:07: as:MORPhin [place] 00 e Sulfate) Morphine No Notes: Memoria 4-09 (Same l 17:07: as:MORPhin [place] 00 e Sulfate) Morphine No Notes: Memoria 4-09 (Same l 17:07: as:MORPhin [place] 00 e Sulfate) buPROPion 2020-0 No 150 [...] tab, PO, l oral 15:27: Daily, # [place] enteric 00 30 tab, 0 coated Refill(s), tablet Pharmacy: [id number], 162.56, cm, 08/29/20 5:30:00 CDT, Height, 97.273, kg, 08/29/20 5:30:00 CDT, Weight pantoprazol 1-0 Yes 40 mg = 1 M emoria e 40 mg 4-09 tab, PO, l oral 15:27: Daily, # [place] enteric 00 30 tab, 0 coated [...] tab, PO, l oral 15:27: Daily, # [place] enteric 00 30 tab, 0 coated [...] tab, PO, l oral 15:26: Daily, # [place] enteric 00 30 tab, 0 coated Refill(s) tablet sucralfate 2020-0 Yes 1 gm = 1 Mem oria 1 g oral 4-09 tab, PO, l tablet 15:26: Q12H, # 28 Skylar nn 00 tab, 0 Refill(s), Pharmacy: [place] [id number], 162.56, cm, 08/29/20 5:30:00 CDT, Height, 97.273, [...] tab, PO, l oral 15:26: Daily, # [place] enteric 00 30 tab, 0 coated [...] tab, PO, l oral 15:26: Daily, # [place] enteric 00 30 tab, 0 coated [...] tab, PO, l oral 15:26: Daily, # [place] enteric 00 30 tab, 0 coated [...] nn 00 tab, 0 Refill(s), Pharmacy: [facility] [id number], 162.56, cm, 08/29/20 5:30:00 [...] a 4-09 (Same as: l 15:25: Ativan) [place] 00 Lorazepam No Notes: Memori a 4-09 (Same as: l 15:25: Ativan) [place] Saline No Notes: Memoria Flush 0.9% 4-09 (Same as: l 15:25: BD [place] 00 Posiflush) Lorazepam No Notes: Memori a 4-09 (Same as: l 15:25: Ativan) [place] Saline No Notes: [facility]oria Flush 0.9% 4-09 (Same as: l 15:25: BD [place] 00 Posiflush) Lorazepam No Notes: Memori [...] 08-29 Drug form: l 14:18: INJ, ONCE, [place] 00 Stop date: 08/29/20 9:18:00 CDT heparin 202-0 No Route: IV, Caesar lisa (ANES) 08-29 Drug form: l 14:18: INJ, ONCE, Stop date: 08/29/20 9:18:00 CDT heparin 202-0 No Route: IV, [place] lisa (ANES) 08-29 Drug form: l 14:18: INJ, ONCE, Stop date: 08/29/20 9:18:00 CDT heparin 202-0 No Route: IV, Caesar lisa (ANES) 08-29 Drug form: l 14:18: INJ, ONCE, [place] Stop date: 08/29/20 9:18:00 CDT heparin 2020-0 No Route: IV, Caesar lisa (ANES) 08-29 Drug form: l 14:18: INJ, ONCE, [place] Stop date: 08/29/20 9:18:00 CDT heparin 2020-0 No Route: IV, Caesar lisa (ANES) 08-29 Drug form: l 14:18: INJ, ONCE, [place] Stop date: 08/29/20 9:18:00 CDT Labetalol 2020-0 No 10 mg, Memori a 08-29 Route: l 14:01: IVP, [place] 00 Q5Min, Dosing Weight 97.273, kg, PRN Elevated BP, Start date: 08/29/20 9:01:00 CDT, Duration: 5 doses or times, Stop date: Limited # of times Acetaminoph 0 No 1,000 mg, M emoria en 08-29 Route: PO, l 14:01: Drug form: [place] 00 TAB, ONCE, Dosing Weight 97.273, [...] Memori a 08-29 Route: l 14:01: IVP, [place] 00 Q2MIN, Dosing Weight 97.273, kg, [...] Memori a 08-29 Route: l 14:01: IVP, [place] 00 Q5Min, Dosing Weight 97.273, kg, [...] oria ne 08-29 Route: l 14:01: IVP, [place] 00 Q5Min, Dosing Weight 97.273, kg, [...] 08-29 Route: PO, l 14:01: Drug form: [place] 00 TAB, ONCE, Dosing Weight 97.273, [...] lisa 08-29 Route: l 14:01: IVP, PRN, [place] 00 Dosing Weight 97.273, kg, PRN Benzodiaze pine Reversal, Initial dose, Start date: 08/29/20 9:01:00 CDT, Duration: 30 day, Stop date: 09/28/20 9:00:00 CDT Naloxone 1-0 No 0.4 mg, Memori a 08-29 Route: l 14:01: IVP, [place] 00 Q2MIN, Dosing Weight 97.273, kg, PRN Narcotic Reversal, Start date: 08/29/20 9:01:00 CDT, Duration: 8 doses or times, Stop date: Limited # of times Ondansetron 2020-0 No 4 mg, Memor ia 08-29 Route: l 14:01: IVP, ONCE, [place] 00 Dosing Weight 97.273, kg, PRN [...] 08-29 Route: PO, l 14:01: Drug form: [place] 00 TAB, ONCE, Dosing Weight 97.273, [...] Memori a 08-29 Route: l 14:01: IVP, [place] 00 Q5Min, Dosing Weight 97.273, kg, PRN Elevated BP, Start date: 08/29/20 9:01:00 CDT, Duration: 5 doses or times, Stop date: Limited # of times Acetaminoph 2020-0 No 1,000 mg, M emoria en 08-29 Route: PO, l 14:01: Drug form: [place] 00 TAB, ONCE, Dosing Weight 97.273, [...] Memori a 08-29 Route: l 14:01: IVP, [place] 00 Q2MIN, Dosing Weight 97.273, kg, PRN Narcotic Reversal, Start date: 08/29/20 9:01:00 CDT, Duration: 8 doses or times, Stop date: Limited # of times Ondansetron 2021-0 No 4 mg, Memor ia 08-29 Route: l 14:01: IVP, ONCE, [place] 00 Dosing Weight 97.273, kg, PRN Nausea & Vomiting, Start date: 08/29/20 9:01:00 CDT Labetalol 2021-0 No 10 mg, Memori a 08-29 Route: l 14:01: IVP, [place] 00 Q5Min, Dosing Weight 97.273, kg, PRN Elevated BP, Start date: 08/29/20 9:01:00 CDT, Duration: 5 doses or times, Stop date: Limited # of times Acetaminoph 1-0 No 1,000 mg, M emoria en 08-29 Route: PO, l 14:01: Drug form: [place] 00 TAB, ONCE, Dosing Weight 97.273, [...] Memori a 08-29 Route: l 14:01: IVP, [place] 00 Q2MIN, Dosing Weight 97.273, kg, [...] Memori a 08-29 Route: l 14:01: IVP, [place] 00 Q5Min, Dosing Weight 97.273, kg, PRN Elevated BP, Start date: 08/29/20 9:01:00 CDT, Duration: 5 doses or times, Stop date: Limited # of times Acetaminoph 1-0 No 1,000 mg, M emoria en 08-29 Route: PO, l 14:01: Drug form: [place] 00 TAB, ONCE, Dosing Weight 97.273, [...] oria ne 08-29 Route: l 14:01: IVP, [place] 00 Q5Min, Dosing Weight 97.273, kg, PRN Pain Score 7-10, Start date: 08/29/20 9:01:00 CDT, Duration: 4 doses or times, Stop date: Limited # of times Flumazenil 1-0 No 0.2 mg, Caesar lisa 08-29 Route: l 14:01: IVP, PRN, [place] 00 Dosing Weight 97.273, kg, PRN Benzodiaze pine Reversal, Initial dose, Start date: 08/29/20 9:01:00 CDT, Duration: 30 day, Stop date: 09/28/20 9:00:00 CDT Naloxone 1-0 No 0.4 mg, Memori a 08-29 Route: l 14:01: IVP, [place] 00 Q2MIN, Dosing Weight 97.273, kg, [...] Drug form: l 10 13:15: INJ, Start [place] microgram date: 08/29/20 8:15:00 CDT, Stop [...] Drug form: l 10 13:15: INJ, Start [place] microgram date: 08/29/20 8:15:00 CDT, Stop date: 08/29/20 9:15:00 CDT norepinephr 2020-0 No Route: IV, Memoria ine (ANES) 08-29 Drug form: l 10 13:15: INJ, Start [place] microgram date: 08/29/20 8:15:00 CDT, Stop date: 08/29/20 9:15:00 CDT Sodium 2020-0 No Route: IV, Memor ia Chloride 4-09 Total l 0.9% IV 12:30: Volume: [place] (ANES) 1000 00 1,000, mL Start date: 08/29/20 7:30:00 CDT, Stop date: 08/29/20 8:30:00 CDT Sodium 2020-0 No Route: IV, Memor ia Chloride 4-09 Total l 0.9% IV 12:30: Volume: [place] (ANES) 1000 00 1,000, mL Start date: 08/29/20 7:30:00 CDT, Stop date: 08/29/20 8:30:00 CDT Sodium 2020-0 No Route: IV, Memor ia Chloride 4-09 Total l 0.9% IV 12:30: Volume: [place] (ANES) 1000 00 1,000, mL Start date: 08/29/20 7:30:00 CDT, Stop date: 08/29/20 8:30:00 CDT Sodium 2021-0 No Route: IV, Memor ia Chloride 4-09 Total l 0.9% IV 12:30: Volume: [place] (ANES) 1000 00 1,000, mL Start date: 08/29/20 7:30:00 CDT, Stop date: 08/29/20 8:30:00 CDT Sodium 2021-0 No Route: IV, Memor ia Chloride 4-09 Total l 0.9% IV 12:30: Volume: [place] (ANES) 1000 00 1,000, mL Start date: 08/29/20 7:30:00 CDT, Stop date: 08/29/20 8:30:00 CDT Sodium 2021-0 No Route: IV, Memor ia Chloride 4-09 Total l 0.9% IV 12:30: Volume: [place] (ANES) 1000 00 1,000, mL Start date: 08/29/20 7:30:00 CDT, Stop date: 08/29/20 8:30:00 CDT Sodium 2021-0 No Route: IV, Memor ia Chloride 4-09 Total l 0.9% IV 12:30: Volume: [place] (ANES) 1000 00 1,000, mL Start [...] PO, l Hydrochlori 11:42: Q24H, # 30 [place] de 150 MG 00 tab, 0 Extended Refill(s) Release Tablet 24 HR Yes 150 mg = 1 Memori a Bupropion 4-09 tab, PO, l Hydrochlori 11:42: Q24H, # 30 [place] de 150 MG 00 tab, 0 Extended Refill(s) Release Tablet 24 HR Yes 150 mg = 1 Memori a Bupropion 4-09 tab, PO, l Hydrochlori 11:42: Q24H, # 30 [place] de 150 MG 00 tab, 0 Extended Refill(s) Release Tablet 24 HR Yes 150 mg = 1 Memori a Bupropion 4-09 tab, PO, l Hydrochlori 11:42: Q24H, # 30 [place] de 150 MG 00 tab, 0 [...] 4-09 Q12H, tab, l Tablet 11:41: 0 [place] [Eliquis] 00 Refill(s), For Atrial Fibrilatio [...] 4-09 Q12H, tab, l Tablet 11:41: 0 [place] [Eliquis] 00 Refill(s), For Atrial Fibrilatio n apixaban 5 2020-0 Yes 5 mg, PO, Me moria MG Oral 4-09 Q12H, tab, l Tablet 11:41: 0 [place] [Eliquis] 00 Refill(s), For Atrial Fibrilatio n AMIODarone 2020- Yes 200 mg = 1 M emoria 200 mg oral 4-09 tab, PO, l tablet 11:38: Daily, # [place] 00 90 tab, 3 Refill(s) AMIODarone 2020-0 Yes 200 mg = 1 M emoria 200 mg oral 4-09 tab, PO, l tablet 11:38: Daily, # [place] 00 90 tab, 3 Refill(s) AMIODarone [...] tab, PO, l tablet 11:38: Daily, # [place] 00 90 tab, 3 Refill(s) AMIODarone 2020-0 Yes 200 mg = 1 M emoria 200 mg oral 4-09 tab, PO, l tablet 11:38: Daily, # [place] 00 90 tab, 3 Refill(s) AMIODarone 2020-0 Yes 200 mg = 1 M emoria 200 mg oral 4-09 tab, PO, l tablet 11:38: Daily, # [place] 00 90 tab, 3 Refill(s) normal No [...] [facility] [address] Yes 400mg Q.5D Take 400 [...] [facility] 00 (two) l [facility] a [facility]. [facility] Yes 400mg Q.5D Take 400 Met [...] Branch 65+ (FLUAD) PFIZER COVID-19 2020-07-23 Completed [facility]00 [facility]-19 2020-07-23 Completed [facility]:00:00 [facility] PFIZER COVID-19 2020-07-23 Completed [facility] VACC[facility] 00:00:00 [facility] PFIZER COVID-19 2020-07-23 Completed [facility] VACC[facility] 00:00:00 [facility] PFIZER COVID-19 2020-07-23 Completed [facility] VACC[facility] 00:00:00 [facility] PFIZER COVID-19 2020-07-23 Completed [facility] VACC[facility] 00:00:00 [facility] PFIZER COVID-19 2020-07-23 Completed [facility] VACC[facility] 00:00:00 [facility] PFIZER COVID-19 2020-07-23 Completed [facility] VACC[facility] 00:00:00 [facility] PFIZER COVID-19 2020-07-23 Completed [facility] VACC[facility] 00:00:00 [facility] PFIZER COVID-19 2020-07-23 Completed [facility] VACC[facility] 00:00:00 [facility] PFIZER COVID-19 2020-07-23 Completed [facility] VACC[facility] 00:00:00 [facility] PFIZER COVID-19 2020-07-23 Completed [facility] VACC[facility] 00:00:00 [facility] PFIZER COVID-19 2020-07-23 Completed [facility] VACC[facility] 00:00:00 [facility] PFIZER COVID-19 2020-07-23 Completed [facility] VACCINATION 00:00:00 [facility] PFIZER COVID-19 2020-07-23 Completed [facility] VACC[facility] 00:00:00 [facility] PFIZER COVID-19 2020-07-23 Completed [facility] VACCINATION 00:00:00 [facility] PFIZER COVID-19 2020-07-23 Completed [facility] VACCIN[facility] 00:00:00 [facility] PFIZER COVID-19 2020-07-23 Completed [facility] VACCINATION 00:00:00 [facility] PFIZER COVID-19 2020-07-23 Completed [facility] VACCIN[facility] 00:00:00 [facility] PFIZER COVID-19 2020-07-23 Completed [facility] VACC[facility] 00:00:00 [facility] PEG COVID-19 2020-07-23 Completed [facility] VACC[facility] 00:00:00 [facility] PEG COVID-19 2020-07-23 Completed [facility] VACC[facility] 00:00:00 [facility] PEG COVID-19 2020-07-23 Completed [facility] VACC[facility] 00:00:00 [facility] PEG COVID-19 2020-07-23 Completed [facility] VACC[facility] 00:00:00 [facility] PEG COVID-19 2020-07-23 Completed [facility] VACC[facility] 00:00:00 [facility] PEG COVID-19 2020-07-23 Completed [facility] VACC[facility] 00:00:00 [facility] PEG COVID-19 2020-07-23 Completed [facility] VACC[facility] 00:00:00 [facility] PEG COVID-19 2020-07-23 Completed [facility]:00 [facility] PEG FELIZID-19 2020-07-23 Completed [facility] VACC[facility] 00:00:00 [facility] PEG COVID-19 2020-07-23 Completed [facility] VACC[facility] 00:00:00 [facility] PEG COVID-19 2020-07-23 Completed [facility] VACC[facility] 00:00:00 [facility] PEG COVID-19 2020-07-23 Completed [facility] VACC[facility] 00:00:00 [facility] PEG COVID-19 2020-07-23 Completed [facility] VACC[facility] 00:00:00 [facility] PEG COVID-19 2020-07-23 Completed [facility] VACC[facility] 00:00:00 [facility] PEG COVID-19 2020-07-23 Completed [facility] VACC[facility] 00:00:00 [facility] PEG COVID-19 2020-07-23 Completed [facility] VACC[facility] 00:00:00 [facility] PEG COVID-19 2020-07-23 Completed [facility] VACC[facility] 00:00:00 [facility] PEG COVID-19 2020-07-23 Completed [facility] VACC[facility] 00:00:00 [facility] PFIZER COVID-19 2020-07-23 Completed [facility] VACCIN[facility] 00:00:00 [facility] PEG COVID-19 2020-07-23 Completed [facility] VACC[facility] 00:00:00 [facility] PEG COVID-19 2020-07-23 Completed [facility] VACC[facility] 00:00:00 [facility] PEG COVID-19 2020-07-23 Completed [facility] VACC[facility] 00:00:00 [facility] PFIZER COVID-19 2020-07-23 Completed [facility] VACCIN[facility] 00:00:00 [facility] PFIZER COVID-19 2020-07-23 Completed [facility] VACCIN[facility] 00:00:00 [facility] PFIZER COVID-19 2020-07-23 Completed [facility] VACC[facility] 00:00:00 [facility] PEG COVID-19 2020-07-23 Completed [facility] VACC[facility] 00:00:00 [facility] PEG COVID-19 2020-07-23 Completed [facility] VACC[facility] 00:00:00 [facility] PFIZER COVID-19 2020-07-23 Completed [facility] VACCIN[facility] 00:00:00 [facility] PFIZER COVID-19 2020-07-23 Completed [facility] VACCIN[facility] 00:00:00 [facility] PFIZER COVID-19 2020-07-23 Completed [facility] VACC[facility] 00:00:00 [facility] PEG COVID-19 2020-07-23 Completed [facility] VACCIN[facility] 00:00:00 [facility] PEG COVID-19 2020-07-23 Completed [facility] VACC[facility] 00:00:00 [facility] PEG COVID-19 2020-07-23 Completed [facility]ACC[facility] 00:00:00 [facility] PEG COVID-19 2020-07-23 Completed [facility] VACC[facility] 00:00:00 [facility] PEG COVID-19 2020-07-23 Completed [facility] VACC[facility] 00:00:00 [facility] PEG COVID-19 2020-07-23 Completed [facility] VACC[facility] 00:00:00 [facility] PEG COVID-19 2020-07-23 Completed [facility] VACCIN[facility] 00:00:00 [facility] PFIZER COVID-19 2020-07-23 Completed [facility] VACCIN[facility] 00:00:00 [facility] PFIZER COVID-19 2020-07-23 Completed [facility] VACC[facility] 00:00:00 [facility] PFIZER COVID-19 2020-07-23 Completed [facility] VACCIN[facility] 00:00:00 [facility] PFIZER COVID-19 2020-07-23 Completed [facility] VACCINATION 00:00:00 [facility] PFIZER COVID-19 2020-07-23 Completed [facility] VACCIN[facility] 00:00:00 [facility] PFIZER COVID-19 2020-07-23 Completed [facility] VACCIN[facility] 00:00:00 [facility] PFIZER COVID-19 2020-07-23 Completed [facility] VACC[facility] 00:00:00 [facility] PFIZER COVID-19 2020-07-23 Completed [facility] 00:00:00 [facility] PFIZER COVID-19 2020-07-23 Completed [facility]ACC[facility] 00:00:00 [facility] PFIZER COVID-19 2020-07-23 Completed [facility]:00 [facility] SARS-COV-2 COVID-19 2020-07-23 Completed [facility] PFIZER VACCINE 00:00:00 [facility] SARS-COV-2 COVID-19 2020-07-23 Completed [facility] PFIZER VACCINE 00:00:00 [facility] SARS-COV-2 COVID-19 2020-07-23 Completed [facility] of PFIZER VACCINE 00:00:00 [facility] SARS-COV-2 COVID-19 2020-07-23 Completed [facility] of PFIZER VACCINE 00:00:00 [facility] SARS-COV-2 COVID-19 2020-07-23 Completed [facility] of PFIZER VACCINE 00:00:00 [facility] SARS-COV-2 COVID-19 2020-07-23 Completed [facility] of PFIZER VACCINE 00:00:00 [facility] SARS-COV-2 COVID-19 2020-07-23 Completed [facility] of PFIZER VACCINE 00:00:00 [facility] SARS-COV-2 COVID-19 2020-07-23 Completed [facility] of PFIZER VACCINE 00:00:00 [facility] SARS-COV-2 COVID-19 2020-07-23 Completed [facility] of PFIZER VACCINE 00:00:00 [facility] SARS-COV-2 COVID-19 2020-07-23 Completed [facility] of PFIZER VACCINE 00:00:00 [facility] SARS-COV-2 COVID-19 2020-07-23 Completed [facility] of PFIZER VACCINE 00:00:00 [facility] SARS-COV-2 COVID-19 2020-07-23 Completed [facility] of PFIZER VACCINE 00:00:00 [facility] SARS-COV-2 COVID-19 2020-07-23 Completed [facility] of PFIZER VACCINE 00:00:00 [facility] SARS-COV-2 COVID-19 2020-07-23 Completed [facility] of PFIZER VACCINE 00:00:00 [facility] SARS-COV-2 COVID-19 2020-07-23 Completed [facility] of PFIZER VACCINE 00:00:00 [facility] SARS-COV-2 COVID-19 2020-07-23 Completed [facility] of PFIZER VACCINE 00:00:00 [facility] SARS-COV-2 COVID-19 2020-07-23 Completed [facility] of PFIZER VACCINE 00:00:00 [facility] SARS-COV-2 COVID-19 2020-07-23 Completed [facility] of PFIZER VACCINE 00:00:00 [facility] SARS-COV-2 COVID-19 2020-07-23 Completed [facility] of PFIZER VACCINE 00:00:00 [facility] SARS-COV-2 COVID-19 2020-07-23 Completed [facility] of PFIZER VACCINE 00:00:00 [facility] PFIZER COVID-19 2020-07-23 Completed [facility]ACC[facility] 00:00:00 [facility] PFIZER COVID-19 2020-07-02 Completed [facility] VACCIN[facility] 00:00:00 [facility] PFIZER COVID-19 2020-07-02 Completed [facility] VACCIN[facility] 00:00:00 [facility] PFIZER COVID-19 2020-07-02 Completed [facility] VACCINATION 00:00:00 [facility] PFIZER COVID-19 2020-07-02 Completed [facility] VACCINATION 00:00:00 [facility] PFIZER COVID-19 2020-07-02 Completed [facility] VACCINATION 00:00:00 [facility] PFIZER COVID-19 2020-07-02 Completed [facility] VACCINATION 00:00:00 [facility] PFIZER COVID-19 2020-07-02 Completed [facility] VACCINATION 00:00:00 [facility] PFIZER COVID-19 2020-07-02 Completed [facility] VACCINATION 00:00:00 [facility] PFIZER COVID-19 2020-07-02 Completed [facility] VACCINATION 00:00:00 [facility] PFIZER COVID-19 2020-07-02 Completed [facility] VACCINATION 00:00:00 [facility] PFIZER COVID-19 2020-07-02 Completed [facility] VACCINATION 00:00:00 [facility] PFIZER COVID-19 2020-07-02 Completed [facility] VACCINATION 00:00:00 [facility] PFIZER COVID-19 2020-07-02 Completed [facility] 00:00:00 [facility] COVID-19 2020-07-02 Completed [facility] 00:00:00 [facility] COVID-19 2020-07-02 Completed [facility] 00:00:00 [facility] COVID-19 2020-07-02 Completed [facility]ACC[facility] 00:00:00 [facility] COVID-19 2020-07-02 Completed [facility]ACC[facility] 00:00:00 [facility] COVID-19 2020-07-02 Completed [facility] 00:00:00 [facility] COVID-19 2020-07-02 Completed [facility] 00:00:00 [facility] COVID-19 2020-07-02 Completed [facility]ACC[facility] 00:00:00 [facility] COVID-19 2020-07-02 Completed [facility] 00:00:00 [facility] PEG COVID-19 2020-07-02 Completed [facility]ACC[facility] 00:00:00 [facility] PEG COVID-19 2020-07-02 Completed [facility]ACC[facility] 00:00:00 [facility] COVID-19 2020-07-02 Completed [facility]ACC[facility] 00:00:00 [facility] COVID-19 2020-07-02 Completed [facility]ACC[facility] 00:00:00 [facility] COVID-19 2020-07-02 Completed [facility]ACC[facility] 00:00:00 [facility] COVID-19 2020-07-02 Completed [facility] VACC[facility]ATION 00:[facility]:00 [facility] COVID-19 2020-07-02 Completed [facility] VACCINATION 00:00:00 [facility] COVID-19 2020-07-02 Completed [facility] VACCIN[facility] 00:00:00 [facility] COVID-19 2020-07-02 Completed [facility] VACC[facility] 00:00:00 [facility] COVID-19 2020-07-02 Completed [facility] VACC[facility] 00:00:00 [facility] COVID-19 2020-07-02 Completed [facility] VACCIN[facility] 00:00:00 [facility] COVID-19 2020-07-02 Completed [facility] VACCIN[facility] 00:00:00 [facility] COVID-19 2020-07-02 Completed [facility] VACCINATION 00:00:00 [facility] COVID-19 2020-07-02 Completed [facility] VACCINATION 00:00:00 [facility] COVID-19 2020-07-02 Completed [facility] VACC[facility] 00:00:00 [facility] COVID-19 2020-07-02 Completed [facility] VACC[facility] 00:00:00 [facility] COVID-19 2020-07-02 Completed [facility] VACC[facility] 00:00:00 [facility] COVID-19 2020-07-02 Completed [facility] VACCIN[facility] 00:00:00 [facility] COVID-19 2020-07-02 Completed [facility] VACC[facility] 00:00:00 [facility] COVID-19 2020-07-02 Completed [facility] VACCINATION 00:00:00 [facility] COVID-19 2020-07-02 Completed [facility] VACCIN[facility] 00:00:00 [facility] COVID-19 2020-07-02 Completed [facility] VACCINATION 00:00:00 [facility] COVID-19 2020-07-02 Completed [facility] VACC[facility] 00:00:00 [facility] COVID-19 2020-07-02 Completed [facility] VACCIN[facility] 00:00:00 [facility] COVID-19 2020-07-02 Completed [facility] VACCIN[facility] 00:00:00 [facility] COVID-19 2020-07-02 Completed [facility] VACCINATION 00:00:00 [facility] COVID-19 2020-07-02 Completed [facility] VACCINATION 00:00:00 [facility] COVID-19 2020-07-02 Completed [facility] VACCINATION 00:00:00 [facility] COVID-19 2020-07-02 Completed [facility] VACCINATION 00:00:00 [facility] COVID-19 2020-07-02 Completed [facility] VACCINATION 00:00:00 [facility] COVID-19 2020-07-02 Completed [facility] VACCINATION 00:00:00 [facility] COVID-19 2020-07-02 Completed [facility] VACCIN[facility] 00:00:00 [facility] COVID-19 2020-07-02 Completed [facility] VACCIN[facility] 00:00:00 [facility] COVID-19 2020-07-02 Completed [facility] VACCINATION 00:00:00 [facility] COVID-19 2020-07-02 Completed [facility] VACCIN[facility] 00:00:00 [facility] COVID-19 2020-07-02 Completed [facility] VACCIN[facility] 00:00:00 [facility] COVID-19 2020-07-02 Completed [facility] VACC[facility] 00:00:00 [facility]ER COVID-19 2020-07-02 Completed [facility] VACC[facility] 00:00:00 [facility] COVID-19 2020-07-02 Completed [facility] 00:00:00 [facility] PFIZER COVID-19 2020-07-02 Completed [facility]ACC[facility] 00:00:00 [facility] PFIZER COVID-19 2020-07-02 Completed [facility] 00:00:00 [facility] PFIZER COVID-19 2020-07-02 Completed [facility]ACC[facility] 00:00:00 [facility] PFIZER COVID-19 2020-07-02 Completed [facility] VACC[facility] 00:00:00 [facility] COVID-19 2020-07-02 Completed [facility] VACC[facility] 00:00:00 [facility] COVID-19 2020-07-02 Completed [facility] VACC[facility] 00:00:00 [facility] P[facility] COVID-19 2020-07-02 Completed [facility] VACC[facility] 00:00:00 [facility] SARS-COV-2 COVID-19 2020-07-02 Completed [facility] PFIZER VACCINE 00:00:00 [facility] SARS-COV-2 COVID-19 2020-07-02 Completed [facility] of PFIZER VACCINE 00:00:00 [facility] SARS-COV-2 COVID-19 2020-07-02 Completed [facility] of PFIZER VACCINE 00:00:00 [facility] SARS-COV-2 COVID-19 2020-07-02 Completed [facility] of PFIZER VACCINE 00:00:00 [facility] SARS-COV-2 COVID-19 2020-07-02 Completed [facility] of PFIZER VACCINE 00:00:00 [facility] SARS-COV-2 COVID-19 2020-07-02 Completed [facility] of PFIZER VACCINE 00:00:00 [facility] SARS-COV-2 COVID-19 2020-07-02 Completed [facility] of PFIZER VACCINE 00:00:00 [facility] SARS-COV-2 COVID-19 2020-07-02 Completed [facility] of PFIZER VACCINE 00:00:00 [facility] SARS-COV-2 COVID-19 2020-07-02 Completed [facility] of PFIZER VACCINE 00:00:00 [facility] SARS-COV-2 COVID-19 2020-07-02 Completed [facility] of PFIZER VACCINE 00:00:00 [facility] SARS-COV-2 COVID-19 2020-07-02 Completed [facility] of PFIZER VACCINE 00:00:00 [facility] SARS-COV-2 COVID-19 2020-07-02 Completed [facility] of PFIZER VACCINE 00:00:00 [facility] SARS-COV-2 COVID-19 2020-07-02 Completed [facility] of PFIZER VACCINE 00:00:00 [facility] SARS-COV-2 COVID-19 2020-07-02 Completed [facility] of PFIZER VACCINE 00:00:00 [facility] SARS-COV-2 COVID-19 2020-07-02 Completed [facility] of PFIZER VACCINE 00:00:00 [facility] SARS-COV-2 COVID-19 2020-07-02 Completed [facility] of PFIZER VACCINE 00:00:00 [facility] SARS-COV-2 COVID-19 2020-07-02 Completed [facility] of PFIZER VACCINE 00:00:00 [facility] SARS-COV-2 COVID-19 2020-07-02 Completed [facility] of PFIZER VACCINE 00:00:00 [facility] SARS-COV-2 COVID-19 2020-07-02 Completed [facility] of PFIZER VACCINE 00:00:00 [facility] SARS-COV-2 COVID-19 2020-07-02 Completed [facility] of PFIZER VACCINE 00:00:00 [facility] PFIZER COVID-19 2020-07-02 Completed [facility] 00:[facility]:00 [facility] Influ[facility] Virus 2017-03-08 Completed [facility] Vaccine 00:00:00 [facility] Influenza Virus 2017-03-08 Completed [facility] Vaccine 00:00:00 [facility] Influenza Virus 2017-03-08 Completed [facility] Vaccine 00:00:00 [facility] Influenza Virus 2017-03-08 Completed [facility] Vaccine 00:00:00 [facility] Influenza Virus 2017-03-08 Completed [facility] Vaccine 00:00:00 [facility] Influenza Virus 2017-03-08 Completed [facility] Vaccine 00:00:00 [facility] Influenza Virus 2017-03-08 Completed [facility] Vaccine 00:00:00 [facility] Influenza Virus 2017-03-08 Completed [facility] Vaccine 00:00:00 [facility] Influenza Virus 2017-03-08 Completed [facility] Vaccine 00:00:00 [facility] Influenza Virus 2017-03-08 Completed [facility] Vaccine 00:00:00 [facility] Influenza Virus 2017-03-08 Completed [facility] Vaccine 00:00:00 [facility] Influenza Virus 2017-03-08 Completed [facility] Vaccine 00:00:00 [facility] Influenza Virus 2017-03-08 Completed [facility] Vaccine 00:00:00 [facility] Influenza Virus 2017-03-08 Completed [facility] of Vaccine 00:00:00 [facility] Influenza Virus 2017-03-08 Completed [facility] Vaccine 00:00:00 [facility] Influenza Virus 2017-03-08 Completed [facility] Vaccine 00:00:00 [facility] Influenza Virus 2017-03-08 Completed [facility] Vaccine 00:00:00 [facility] Influenza Virus 2017-03-08 Completed [facility] Vaccine 00:00:00 [facility] Influenza Virus 2017-03-08 Completed [facility] Vaccine 00:00:00 [facility] Influenza Virus 2017-03-08 Completed [facility] Vaccine 00:00:00 [facility] Influenza Virus 2017-03-08 Completed [facility] Vaccine 00:00:00 [facility] Influenza Virus 2017-03-08 Completed [facility] Vaccine 00:00:00 [facility] Influenza Virus 2017-03-08 Completed [facility] Vaccine 00:00:00 [facility] Influenza Virus 2017-03-08 Completed [facility] Vaccine 00:00:00 [facility] Influenza Virus 2014-01-30 Completed [facility] of Vaccine (3+ yrs) 00:00:00 [facility] Pneumococcal 13 2014-01-30 Completed [facility] y of Conjugate, PCV13 00:00:00 [facility] dical (Prevnar 13) Branch Influenza Virus 2014-01-30 Completed [facility] of Vaccine (3+ yrs) 00:00:00 [facility]ical Branch Pneumococcal 13 2014-01-30 Completed [facility] of Conjugate, PCV13 00:00:00 [facility] dical (Prevnar 13) Branch [...] [facility] y of Vaccine (3+ yrs) 00:00:00 [facility] Branch Pneumococcal 13 2014-01-30 Completed [facility] of Conjugate, PCV13 00:00:00 [facility] dical (Prevnar 13) Branch Influenza Virus 2014-01-30 Completed [facility] of Vaccine (3+ yrs) 00:00:00 [facility] Branch Pneumococcal 13 2014-01-30 Completed [facility] of Conjugate, PCV13 00:00:00 [facility] dical (Prevnar 13) Branch Influenza Virus 2014-01-30 Completed [facility] of Vaccine (3+ yrs) 00:00:00 [facility] dical Branch Pneumococcal 13 2014-01-30 Completed [facility] y of Conjugate, PCV13 00:00:00 [facility] dical (Prevnar 13) Branch Influenza Virus 2014-01-30 Completed [facility] of Vaccine (3+ yrs) 00:00:00 [facility] Branch Pneumococcal 13 2014-01-30 Completed [facility] y of Conjugate, PCV13 00:00:00 [facility] dical (Prevnar 13) Branch Influenza Virus 2014-01-30 Completed [facility] of Vaccine (3+ yrs) 00:00:00 [facility]ical Branch Pneumococcal 13 2014-01-30 Completed [facility] of Conjugate, PCV13 00:00:00 [facility] dical (Prevnar 13) Branch Influenza Virus 2014-01-30 Completed [facility] of Vaccine (3+ yrs) 00:00:00 [facility] dical Branch Pneumococcal 13 [...] [facility] y of Vaccine (3+ yrs) 00:00:00 [facility] Branch Pneumococcal 13 2014-01-30 Completed [facility] of Conjugate, PCV13 00:00:00 [facility] (Prevnar 13) Branch Influenza Virus 2014-01-30 Completed [facility] of Vaccine (3+ yrs) 00:00:00 [facility] Pneumococcal 13 2014-01-30 Completed [facility] of Conjugate, PCV13 00:00:00 [facility] (Prevnar 13) Branch Influenza Virus 2014-01-30 Completed [facility] of Vaccine (3+ yrs) 00:00:00 [facility] dical Branch Pneumococcal 13 2014-01-30 Completed [facility] of Conjugate, PCV13 00:00:00 [facility] (Prevnar 13) Branch Influenza Virus 2014-01-30 Completed [facility] of Vaccine (3+ yrs) 00:00:00 [facility] d[facility] Branch Pneumococcal 13 2014-01-30 Completed [facility] of Conjugate, PCV13 00:00:00 [facility] (Prevnar 13) Branch Influenza Virus 2014-01-30 Completed [facility] of Vaccine (3+ yrs) 00:00:00 [facility] Branch Pneumococcal 13 2014-01-30 Completed [facility] of Conjugate, PCV13 00:00:00 [facility] dical (Prevnar 13) Branch Influenza Virus 2014-01-30 Completed [facility] of Vaccine (3+ yrs) 00:00:00 [facility] Branch Pneumococcal 13 2014-01-30 Completed [facility] of Conjugate, PCV13 00:00:00 [facility] dical (Prevnar 13) Branch Influenza Virus 2014-01-30 Completed [facility] of Vaccine (3+ yrs) 00:00:00 [facility] d[facility] Branch Pneumococcal 13 2014-01-30 Completed [facility] of Conjugate, PCV13 00:00:00 [facility] dical (Prevnar 13) Branch Influenza Virus 2014-01-30 Completed [facility] of Vaccine (3+ yrs) 00:00:00 [facility] dical Branch Pneumococcal 13 2014-01-30 Completed [facility] of Conjugate, PCV13 00:00:00 [facility] dical (Prevnar 13) Branch Influenza Virus 2014-01-30 Completed [facility] of Vaccine (3+ yrs) 00:00:[address] [facility] Pneumococcal 13 2014-01-30 Completed [facility] y of Conjugate, PCV13 00:00:00 [facility] dical (Prevnar 13) Branch Influenza Virus 2014-01-30 Completed [facility] y of Vaccine (3+ yrs) 00:00:00 [facility] dical Branch Pneumococcal 13 2014-01-30 Completed [facility] y of Conjugate, PCV13 00:00:00 [facility] dicwi (Prevnar 13) Branch Pneumococcal 2012-02-16 Completed University o f Polysaccharide, 00:00:00 [facility] ical PPSV23 (PNEUMOVAX) Branch Influenza Virus 2012-02-16 Completed [facility] y of Vaccine 00:00:00 [facility] PPD (TB) 2012-02-16 Completed University of 00:00:00 [facility] Pneumococcal 2012-02-16 Completed University o f Polysaccharide, 00:00:00 [facility] ical PPSV23 (PNEUMOVAX) Branch Influenza Virus 2012-02-16 Completed [facility] of Vaccine 00:00:00 [facility] PPD (TB) 2012-02-16 Completed [facility] of 00:00:00 [facility] Pneumococcal 2012-02-16 Completed [facility] o f Polysaccharide, 00:00:00 [facility] ical PPSV23 (PNEUMOVAX) Branch Influenza Virus 2012-02-16 Completed [facility] of Vaccine 00:00:00 [facility] PPD (TB) 2012-02-16 Completed [facility] of 00:00:00 [facility] Pneumococcal 2012-02-16 Completed [facility] f Polysaccharide, 00:00:00 [facility] PPSV23 (PNEUMOVAX) Branch Influenza Virus 2012-02-16 Completed [facility] of Vaccine 00:00:00 [facility] PPD (TB) 2012-02-16 Completed [facility] of 00:00:00 [facility] Pneumococcal 2012-02-16 Completed [facility] o f Polysaccharide, 00:00:00 [facility] PPSV23 (PNEUMOVAX) Branch Influenza Virus 2012-02-16 Completed [facility] of Vaccine 00:00:00 [facility] PPD (TB) 2012-02-16 Completed [facility] of 00:00:00 [facility] Pneumococcal 2012-02-16 Completed [facility] o f Polysaccharide, 00:00:00 [facility] PPSV23 (PNEUMOVAX) Branch Influenza Virus 2012-02-16 Completed [facility] of Vaccine 00:00:00 [facility] PPD (TB) 2012-02-16 Completed [facility] of 00:00:00 [facility] Pneumococcal 2012-02-16 Completed [facility] o f Polysaccharide, 00:00:00 [facility] PPSV23 (PNEUMOVAX) Branch Influenza Virus 2012-02-16 Completed [facility] of Vaccine 00:00:00 [facility] PPD (TB) 2012-02-16 Completed [facility] of 00:00:00 [facility] Pneumococcal 2012-02-16 Completed [facility] o f Polysaccharide, 00:00:00 [facility] PPSV23 (PNEUMOVAX) Branch Influenza Virus 2012-02-16 Completed [facility] of Vaccine 00:00:00 [facility] PPD (TB) 2012-02-16 Completed [facility] of 00:00:00 [facility] Pneumococcal 2012-02-16 Completed [facility] o f Polysaccharide, 00:00:00 [facility] PPSV23 (PNEUMOVAX) Branch Influenza Virus 2012-02-16 Completed [facility] of Vaccine 00:00:00 [facility] PPD (TB) 2012-02-16 Completed [facility] of 00:00:00 [facility] Pneumococcal 2012-02-16 Completed [facility] o f Polysaccharide, 00:00:00 [facility] PPSV23 (PNEUMOVAX) Branch Influenza Virus 2012-02-16 Completed [facility] of Vaccine 00:00:00 [facility] PPD (TB) 2012-02-16 Completed [facility] of 00:00:00 [facility] Pneumococcal 2012-02-16 Completed [facility] o f Polysaccharide, 00:00:00 [facility] PPSV23 (PNEUMOVAX) Branch Influenza Virus 2012-02-16 Completed [facility] of Vaccine 00:00:00 [facility] PPD (TB) 2012-02-16 Completed [facility] of 00:00:00 [facility] Pneumococcal 2012-02-16 Completed [facility] o f Polysaccharide, 00:00:00 [facility] PPSV23 (PNEUMOVAX) Branch Influenza Virus 2012-02-16 Completed [facility] of Vaccine 00:00:00 [facility] PPD (TB) 2012-02-16 Completed [facility] of 00:00:00 [facility] Pneumococcal 2012-02-16 Completed [facility] o f Polysaccharide, 00:00:00 [facility] PPSV23 (PNEUMOVAX) Branch Influenza Virus 2012-02-16 Completed [facility] of Vaccine 00:00:00 [facility] PPD (TB) 2012-02-16 Completed [facility] of 00:00:00 [facility] Pneumococcal 2012-02-16 Completed [facility] o f Polysaccharide, 00:00:00 [facility] PPSV23 (PNEUMOVAX) Branch Influenza Virus 2012-02-16 Completed [facility] of Vaccine 00:00:00 [facility] PPD (TB) 2012-02-16 Completed [facility] of 00:00:00 [facility] Pneumococcal 2012-02-16 Completed [facility] o f Polysaccharide, 00:00:00 [facility] PPSV23 (PNEUMOVAX) Branch Influenza Virus 2012-02-16 Completed [facility] of Vaccine 00:00:00 [facility] PPD (TB) 2012-02-16 Completed [facility] of 00:00:00 [facility] Pneumococcal 2012-02-16 Completed [facility] o f Polysaccharide, 00:00:00 [facility] PPSV23 (PNEUMOVAX) Branch Influenza Virus 2012-02-16 Completed [facility] of Vaccine 00:00:00 [facility] PPD (TB) 2012-02-16 Completed [facility] of 00:00:00 [facility] Pneumococcal 2012-02-16 Completed [facility] o f Polysaccharide, 00:00:00 [facility] PPSV23 (PNEUMOVAX) Branch Influenza Virus 2012-02-16 Completed [facility] of Vaccine 00:00:00 [facility] PPD (TB) 2012-02-16 Completed [facility] of 00:00:00 [facility] Pneumococcal 2012-02-16 Completed [facility] o f Polysaccharide, 00:00:00 [facility] PPSV23 (PNEUMOVAX) Branch Influenza Virus 2012-02-16 Completed [facility] of Vaccine 00:00:00 [facility] PPD (TB) 2012-02-16 Completed [facility] of 00:00:00 [facility] Pneumococcal 2012-02-16 Completed [facility] o f Polysaccharide, 00:00:00 [facility] PPSV23 (PNEUMOVAX) Branch Influenza Virus 2012-02-16 Completed [facility] of Vaccine 00:00:00 [facility] PPD (TB) 2012-02-16 Completed [facility] of 00:00:00 [facility] Pneumococcal 2012-02-16 Completed [facility] o f Polysaccharide, 00:00:00 [facility] PPSV23 (PNEUMOVAX) Branch Influenza Virus 2012-02-16 Completed [facility] of Vaccine 00:00:00 [facility] PPD (TB) 2012-02-16 Completed [facility] of 00:00:00 [facility] Pneumococcal 2012-02-16 Completed [facility] o f Polysaccharide, 00:00:00 [facility] PPSV23 (PNEUMOVAX) Branch Influenza Virus 2012-02-16 Completed [facility] of Vaccine 00:00:00 [facility] PPD (TB) 2012-02-16 Completed [facility] of 00:00:00 [facility] Pneumococcal 2012-02-16 Completed [facility] o f Polysaccharide, 00:00:00 [facility] ical PPSV23 (PNEUMOVAX) Branch Influenza Virus 2012-02-16 Completed [facility] y of Vaccine 00:00:00 [facility] PPD (TB) 2012-02-16 Completed [facility] of 00:00:00 [facility] Pneumococcal 2012-02-16 Completed [facility] o f Polysaccharide, 00:00:00 [facility] PPSV23 (PNEUMOVAX) Branch Influenza Virus 2012-02-16 Completed [facility] of Vaccine 00:00:00 [facility] PPD (TB) 2012-02-16 Completed [facility] of 00:00:00 [facility] Pneumococcal 2012-02-16 Completed [facility] o f Polysaccharide, 00:00:00 [facility] PPSV23 (PNEUMOVAX) Branch Influenza Virus 2012-02-16 Completed [facility] of Vaccine 00:00:00 [facility] PPD (TB) 2012-02-16 Completed [facility] of 00:00:00 [facility] Hep B, Adol or Pedi [...] of Dosage 00:00:00 [facility] Hep B, Adol or Pedi 2011-03-17 Completed Unive rsity of Dosage 00:00:00 [facility] Influenza Virus 2011-02-10 Completed [facility] of Vaccine 00:00:00 [facility] Hep B, Adol or Pedi 2011-02-10 Completed [facility]ive rsity of Dosage 00:00:00 [facility] Influenza Virus 2011-02-10 Completed [facility] of Vaccine 00:00:00 [facility] Hep B, Adol or Pedi 2011-02-10 Completed [facility]ive rsity of Dosage 00:00:00 [facility] Influenza Virus 2011-02-10 Completed [facility] of Vaccine 00:00:00 [facility] Hep B, Adol or Pedi 2011-02-10 Completed [facility]ive rsity of Dosage 00:00:00 [facility] Influenza Virus 2011-02-10 Completed [facility] of Vaccine 00:00:00 [facility] Hep B, Adol or Pedi 2011-02-10 Completed Unive rsity of Dosage 00:00:00 [facility] Influenza Virus 2011-02-10 Completed [facility] of Vaccine 00:00:00 [facility] Hep B, Adol or Pedi 2011-02-10 Completed [facility]ive rsity of Dosage 00:00:00 [facility] Influenza Virus 2011-02-10 Completed [facility] of Vaccine 00:00:00 [facility] Hep B, Adol or Pedi 2011-02-10 Completed [facility]ive rsity of Dosage 00:00:00 [facility] Influenza Virus 2011-02-10 Completed [facility] of Vaccine 00:00:00 [facility] Hep B, Adol or Pedi 2011-02-10 Completed [facility]ive rsity of Dosage 00:00:00 [facility] Influenza Virus 2011-02-10 Completed [facility] of Vaccine 00:00:00 [facility] Hep B, Adol or Pedi 2011-02-10 Completed [facility]ive rs[facility] of Dosage 00:00:00 [facility] Influenza Virus 2011-02-10 Completed [facility] of Vaccine 00:00:00 [facility] Hep B, Adol or Pedi 2011-02-10 Completed [facility]ive rs[facility] of Dosage 00:00:00 [facility] Influenza Virus 2011-02-10 Completed [facility] of Vaccine 00:00:00 [facility] Hep B, Adol or Pedi 2011-02-10 Completed [facility]ive rs[facility] of Dosage 00:00:00 [facility] Influenza Virus 2011-02-10 Completed [facility] of Vaccine 00:00:00 [facility] Hep B, Adol or Pedi 2011-02-10 Completed [facility]ive rs[facility] of Dosage 00:00:00 [facility] Influenza Virus 2011-02-10 Completed [facility] Vaccine 00:00:00 [facility] Branch Hep B, Adol or Pedi 2011-02-10 Completed Unive rsity of Dosage 00:00:00 [facility] Influenza Virus 2011-02-10 Completed Universit y of Vaccine 00:00:00 [facility] Hep B, Adol or Pedi 2011-02-10 Completed [facility]ive rsity of Dosage 00:00:00 [facility] Influenza Virus 2011-02-10 Completed [facility]it y of Vaccine 00:00:00 [facility] Hep B, Adol or Pedi 2011-02-10 Completed Unive rsity of Dosage 00:00:00 [facility] Influenza Virus 2011-02-10 Completed Universit y of Vaccine 00:00:00 [facility] Hep B, Adol or Pedi 2011-02-10 Completed Unive rsity of Dosage 00:00:00 [facility] Influenza Virus 2011-02-10 Completed [facility]it y of Vaccine 00:00:00 [facility] Hep B, Adol or Pedi 2011-02-10 Completed Unive rsity of Dosage 00:00:00 [facility] Influenza Virus 2011-02-10 Completed [facility]it y of Vaccine 00:00:00 [facility] Hep B, Adol or Pedi 2011-02-10 Completed Unive rsity of Dosage 00:00:00 [facility] Influenza Virus 2011-02-10 Completed Universit y of Vaccine 00:00:00 [facility] Hep B, Adol or Pedi 2011-02-10 Completed Unive rsity of Dosage 00:00:00 [facility] Influenza Virus 2011-02-10 Completed [facility]it y of Vaccine 00:00:00 [facility] Hep B, Adol or Pedi 2011-02-10 Completed Unive rsity of Dosage 00:00:00 [facility] Influenza Virus 2011-02-10 Completed [facility]it y of Vaccine 00:00:00 [facility] Hep B, Adol or Pedi 2011-02-10 Completed [facility]ive rsity of Dosage 00:00:00 [facility] Influenza Virus 2011-02-10 Completed Universit [facility] of Vaccine 00:00:00 [facility] Hep B, Adol or Pedi 2011-02-10 Completed Unive rsity of Dosage 00:00:00 [facility] Influenza Virus 2011-02-10 Completed [facility]it [facility] of Vaccine 00:00:00 [facility] Hep B, Adol or Pedi 2011-02-10 Completed Unive rsity of Dosage 00:00:00 [facility] Influenza Virus 2011-02-10 Completed [facility]it y of Vaccine 00:00:00 [facility] Hep B, Adol or Pedi 2011-02-10 Completed Unive rsity of Dosage 00:00:00 [facility] Influenza Virus 2011-02-10 Completed [facility]it y of Vaccine 00:00:00 [facility] Hep B, Adol or Pedi 2011-02-10 Completed Unive rsity of Dosage 00:00:00 [facility] PPD (TB) 2010-11-18 Completed University of 00:00:00 [facility] TDAP (ADACEL) 2010-11-18 Completed University of VACCINE 00:00:00 [facility] PPD (TB) 2010-11-18 Completed University of 00:00:00 [facility] TDAP (ADACEL) 2010-11-18 Completed University of VACCINE 00:00:00 [facility] PPD (TB) 2010-11-18 Completed University of 00:00:00 [facility] TDAP (ADACEL) 2010-11-18 Completed University of VACCINE 00:00:00 [facility] PPD (TB) 2010-11-18 Completed University of 00:00:00 [facility] TDAP (ADACEL) 2010-11-18 Completed University of VACCINE 00:00:00 [facility] PPD (TB) 2010-11-18 Completed University of 00:00:00 [facility] TDAP (ADACEL) 2010-11-18 Completed University of VACCINE 00:00:00 [facility] PPD (TB) 2010-11-18 Completed University of 00:00:00 [facility] TDAP (ADACEL) 2010-11-18 Completed University of VACCINE 00:00:00 [facility] PPD (TB) 2010-11-18 Completed University of 00:00:00 [facility] TDAP (ADACEL) 2010-11-18 Completed University of VACCINE 00:00:00 [facility] PPD (TB) 2010-11-18 Completed University of 00:00:00 [facility] TDAP (ADACEL) 2010-11-18 Completed University of VACCINE 00:00:00 [facility] PPD (TB) 2010-11-18 Completed University of 00:00:00 [facility] TDAP (ADACEL) 2010-11-18 Completed University of VACCINE 00:00:00 [facility] PPD (TB) 2010-11-18 Completed University of 00:00:00 [facility] TDAP (ADACEL) 2010-11-18 Completed University of VACCINE 00:00:00 [facility] PPD (TB) 2010-11-18 Completed University of 00:00:00 [facility] TDAP (ADACEL) 2010-11-18 Completed University of VACCINE 00:00:00 [facility] PPD (TB) 2010-11-18 Completed University of 00:00:00 [facility] TDAP (ADACEL) 2010-11-18 Completed University of VACCINE 00:00:00 [facility] PPD (TB) 2010-11-18 Completed University of 00:00:00 [facility] TDAP (ADACEL) 2010-11-18 Completed University of VACCINE 00:00:00 [facility] PPD (TB) 2010-11-18 Completed University of 00:00:00 [facility] TDAP (ADACEL) 2010-11-18 Completed University of VACCINE 00:00:00 [facility] PPD (TB) 2010-11-18 Completed University of 00:00:00 [facility] TDAP (ADACEL) 2010-11-18 Completed University of VACCINE 00:00:00 [facility] PPD (TB) 2010-11-18 Completed University of 00:00:00 [facility] TDAP (ADACEL) 2010-11-18 Completed University of VACCINE 00:00:00 [facility] PPD (TB) 2010-11-18 Completed University of 00:00:00 [facility] TDAP (ADACEL) 2010-11-18 Completed University of VACCINE 00:00:00 [facility] PPD (TB) 2010-11-18 Completed University of 00:00:00 [facility] TDAP (ADACEL) 2010-11-18 Completed University of VACCINE 00:00:00 [facility] PPD (TB) 2010-11-18 Completed University of 00:00:00 [facility] TDAP (ADACEL) 2010-11-18 Completed University of VACCINE 00:00:00 [facility] PPD (TB) 2010-11-18 Completed University of 00:00:00 [facility] TDAP (ADACEL) 2010-11-18 Completed University of VACCINE 00:00:00 [facility] PPD (TB) 2010-11-18 Completed University of 00:00:00 [facility] TDAP (ADACEL) 2010-11-18 Completed University of VACCINE 00:00:00 [facility] PPD (TB) 2010-11-18 Completed University of 00:00:00 [facility] TDAP (ADACEL) 2010-11-18 Completed University of VACCINE 00:00:00 [facility] PPD (TB) 2010-11-18 Completed University of 00:00:00 [facility] TDAP (ADACEL) 2010-11-18 Completed University of VACCINE 00:00:00 [facility] PPD (TB) 2010-11-18 Completed University of 00:00:00 [facility] TDAP (ADACEL) 2010-11-18 Completed University of VACCINE 00:00:00 [facility] HEPATITIS A 2004-03-02 Completed University of 00:00:00 [facility] HEPATITIS A 2004-03-02 Completed University of 00:00:00 [facility] HEPATITIS A 2004-03-02 Completed University of 00:00:00 [facility] HEPATITIS A 2004-03-02 Completed University of 00:00:00 [facility] HEPATITIS A 2004-03-02 Completed University of 00:00:00 [facility] HEPATITIS A 2004-03-02 Completed University of 00:00:00 [facility] HEPATITIS A 2004-03-02 Completed University of 00:00:00 [facility] HEPATITIS A 2004-03-02 Completed University of 00:00:00 [facility] HEPATITIS A 2004-03-02 Completed University of 00:00:00 [facility] HEPATITIS A 2004-03-02 Completed University of 00:00:00 [facility] HEPATITIS A 2004-03-02 Completed University of 00:00:00 [facility] HEPATITIS A 2004-03-02 Completed University of 00:00:00 [facility] HEPATITIS A 2004-03-02 Completed University of 00:00:00 [facility] HEPATITIS A 2004-03-02 Completed University of 00:00:00 [facility] HEPATITIS A 2004-03-02 Completed University of 00:00:00 [facility] HEPATITIS A 2004-03-02 Completed University of 00:00:00 [facility] HEPATITIS A 2004-03-02 Completed University of 00:00:00 [facility] HEPATITIS A 2004-03-02 Completed University of 00:00:00 [facility] HEPATITIS A 2004-03-02 Completed University of 00:00:00 [facility] HEPATITIS A 2004-03-02 Completed University of 00:00:00 [facility] HEPATITIS A 2004-03-02 Completed University of 00:00:00 [facility] HEPATITIS A 2004-03-02 Completed University of 00:00:00 [facility] HEPATITIS A 2004-03-02 Completed University of 00:00:00 [facility] HEPATITIS A 2004-03-02 Completed University of 00:00:00 [facility] HEPATITIS A 2003-08-01 Completed University of 00:00:00 [facility] HEPATITIS A 2003-08-01 Completed University of 00:00:00 [facility] HEPATITIS A 2003-08-01 Completed University of 00:00:00 [facility] HEPATITIS A 2003-08-01 Completed University of 00:00:00 [facility] HEPATITIS A 2003-08-01 Completed University of 00:00:00 [facility] HEPATITIS A 2003-08-01 Completed University of 00:00:00 [facility] HEPATITIS A 2003-08-01 Completed University of 00:00:00 [facility] HEPATITIS A 2003-08-01 Completed University of 00:00:00 [facility] HEPATITIS A 2003-08-01 Completed University of 00:00:00 [facility] HEPATITIS A 2003-08-01 Completed University of 00:00:00 [facility] HEPATITIS A 2003-08-01 Completed University of 00:00:00 [facility] HEPATITIS A 2003-08-01 Completed University of 00:00:00 [facility] HEPATITIS A 2003-08-01 Completed University of 00:00:00 [facility] HEPATITIS A 2003-08-01 Completed University of 00:00:00 [facility] HEPATITIS A 2003-08-01 Completed University of 00:00:00 [facility] HEPATITIS A 2003-08-01 Completed University of 00:00:00 [facility] HEPATITIS A 2003-08-01 Completed University of 00:00:00 [facility] HEPATITIS A 2003-08-01 Completed University of 00:00:00 [facility] HEPATITIS A 2003-08-01 Completed University of 00:00:00 [facility] HEPATITIS A 2003-08-01 Completed University of 00:00:00 [facility] HEPATITIS A 2003-08-01 Completed University of 00:00:00 [facility] HEPATITIS A 2003-08-01 Completed University of 00:00:00 [facility] HEPATITIS A 2003-08-01 Completed University of 00:00:00 [facility] HEPATITIS A 2003-08-01 Completed University of 00:00:00 [facility] Pneumococcal 2001-10-04 Completed University o f Polysaccharide, 00:00:00 [facility] PPSV23 (PNEUMOVAX) Branch PPD (TB) 2001-10-04 Completed University of 00:00:00 [facility] Pneumococcal 2001-10-04 Completed University o f Polysaccharide, 00:00:00 [place] [facility] PPSV23 (PNEUMOVAX) Branch PPD (TB) 2001-10-04 Completed University of 00:00:00 [facility] Pneumococcal 2001-10-04 Completed University o f Polysaccharide, 00:00:00 [place] [facility] PPSV23 (PNEUMOVAX) [facility] PPD (TB) 2001-10-04 Completed University of 00:00:00 [facility] Pneumococcal 2001-10-04 Completed University o f Polysaccharide, 00:00:00 [place] [facility] PPSV23 (PNEUMOVAX) [facility] PPD (TB) 2001-10-04 Completed University of 00:00:00 [facility] Pneumococcal 2001-10-04 Completed University o f Polysaccharide, 00:00:00 [place] [facility] PPSV23 (PNEUMOVAX) [facility] PPD (TB) 2001-10-04 Completed University of 00:00:00 [facility] Pneumococcal 2001-10-04 Completed University o f Polysaccharide, 00:00:00 [place] [facility] PPSV23 (PNEUMOVAX) Branch PPD (TB) 2001-10-04 Completed University of 00:00:00 [facility] Pneumococcal 2001-10-04 Completed University o f Polysaccharide, 00:00:00 [place] [facility] PPSV23 (PNEUMOVAX) Branch PPD (TB) 2001-10-04 Completed University of 00:00:00 [facility] Pneumococcal 2001-10-04 Completed University o f Polysaccharide, 00:00:00 [place] [facility] PPSV23 (PNEUMOVAX) Branch PPD (TB) 2001-10-04 Completed University of 00:00:00 [facility] Pneumococcal 2001-10-04 Completed University o f Polysaccharide, 00:00:00 [place] [facility] PPSV23 (PNEUMOVAX) Branch PPD (TB) 2001-10-04 Completed University of 00:00:00 [facility] Pneumococcal 2001-10-04 Completed University o f Polysaccharide, 00:00:00 [place] [facility] PPSV23 (PNEUMOVAX) Branch PPD (TB) 2001-10-04 Completed University of 00:00:00 [facility] Pneumococcal 2001-10-04 Completed University o f Polysaccharide, 00:00:00 [place] [facility] PPSV23 (PNEUMOVAX) Branch PPD (TB) 2001-10-04 Completed University of 00:00:00 [facility] Pneumococcal 2001-10-04 Completed University o f Polysaccharide, 00:00:00 [place] [facility] PPSV23 (PNEUMOVAX) Branch PPD (TB) 2001-10-04 Completed University of 00:00:00 [facility] Pneumococcal 2001-10-04 Completed [facility] o f Polysaccharide, 00:00:00 [place] [facility] PPSV23 (PNEUMOVAX) [facility] PPD (TB) 2001-10-04 Completed University of 00:00:00 [facility] Pneumococcal 2001-10-04 Completed University o f Polysaccharide, 00:00:00 [place] [facility] PPSV23 (PNEUMOVAX) [facility] PPD (TB) 2001-10-04 Completed University of 00:00:00 [facility] Pneumococcal 2001-10-04 Completed University o f Polysaccharide, 00:00:00 [place] [facility] PPSV23 (PNEUMOVAX) [facility] PPD (TB) 2001-10-04 Completed University of 00:00:00 [facility] Pneumococcal 2001-10-04 Completed University o f Polysaccharide, 00:00:00 [place] [facility] PPSV23 (PNEUMOVAX) Branch PPD (TB) 2001-10-04 Completed University of 00:00:00 [facility] Pneumococcal 2001-10-04 Completed University o f Polysaccharide, 00:00:00 [place] [facility] PPSV23 (PNEUMOVAX) Branch PPD (TB) 2001-10-04 Completed University of 00:00:00 [facility] Pneumococcal 2001-10-04 Completed University o f Polysaccharide, 00:00:00 [place] [facility] PPSV23 (PNEUMOVAX) Branch PPD (TB) 2001-10-04 Completed University of 00:00:00 [facility] Pneumococcal 2001-10-04 Completed University o f Polysaccharide, 00:00:00 [place] [facility] PPSV23 (PNEUMOVAX) Branch PPD (TB) 2001-10-04 Completed University of 00:00:00 [facility] Pneumococcal 2001-10-04 Completed University o f Polysaccharide, 00:00:00 [place] [facility] PPSV23 (PNEUMOVAX) Branch PPD (TB) 2001-10-04 Completed University of 00:00:00 [facility] Pneumococcal 2001-10-04 Completed University o f Polysaccharide, 00:00:00 [place] [facility] PPSV23 (PNEUMOVAX) Branch PPD (TB) 2001-10-04 Completed University of 00:00:00 [facility] Pneumococcal 2001-10-04 Completed University o f Polysaccharide, 00:00:00 [place] [facility] PPSV23 (PNEUMOVAX) Branch PPD (TB) 2001-10-04 Completed University of 00:00:00 [facility] Pneumococcal 2001-10-04 Completed University o f Polysaccharide, 00:00:00 [place] [facility] PPSV23 (PNEUMOVAX) Branch PPD (TB) 2001-10-04 Completed University of 00:00:00 [facility] Pneumococcal 2001-10-04 Completed University o f Polysaccharide, 00:00:00 [place] [facility] PPSV23 (PNEUMOVAX) Branch PPD (TB) 2001-10-04 Completed University of 00:00:00 [facility] Vital Signs Vital Name Observation Time Observation Value Comments Source Systolic blood 2023-01-27 23:00:00 179 mm[Hg] Univer sity of pressure [facility] Diastolic blood 2023-01-27 23:00:00 101 mm[Hg] Unive rsity of pressure [facility] Heart rate 2023-01-27 23:00:00 58 /min Universi ty of [facility] Respiratory rate 2023-01-27 23:00:00 12 /min Univ ersity of [facility] Oxygen saturation in 2023-01-27 23:00:00 99 /min [facility] of [facility]terial blood by [place] [facility] P[facility] oxim[facility] Body temperature 2023-01-27 15:46:00 37.28 Amina Univ ersity of [facility] Body weight 2023-01-27 15:46:00 79.379 kg Universi ty [facility] BMI 2023-01-27 15:46:00 30.04 kg/m2 Universi ty [facility] Systolic blood 2022-05-10 22:00:00 159 mm[Hg] Univer sity of pressure [facility] Diastolic blood 2022-05-10 22:00:00 87 mm[Hg] Unive rsity of pressure [facility] Heart rate 2022-05-10 22:00:00 56 /min Universi ty [facility] Body temperature 2022-05-10 22:00:00 36.61 Amina Univ ersity of [facility] Respiratory rate 2022-05-10 22:00:00 17 /min Univ ersity of [facility] Oxygen saturation in 2022-05-10 22:00:00 98 /min University of Arterial blood by [place] [employer] Pulse oxim[facility] Body weight 2022-05-10 16:29:00 78.926 kg Universi ty of [facility] BMI 2022-05-10 16:29:00 29.87 kg/m2 [facility] Systolic blood 2022-05-08 22:30:00 168 mm[Hg] [facility]iver [facility]ity of pressure [facility] Diastolic blood 2022-05-08 22:30:00 85 mm[Hg] Unive rsity of pressure [facility] Heart rate 2022-05-08 22:30:00 68 /min [facility] Oxygen saturation in 2022-05-08 22:30:00 100 /min [facility] Arterial blood by [place] [employer] [facility] Body temperature 2022-05-08 [...] 99 /min [facility] Arterial blood by [place] [employer] [facility] Body temperature 2022-05-06 [...] 2022-04-22 19:50:00 36.67 Amina Univ [facility] Respiratory rate 2022-04-22 19:50:00 17 /min Univ ers[facility] Body height 2022-04-22 19:50:00 162.6 cm [facility] Body weight 2022-04-22 19:50:00 80.74 kg [facility] BMI 2022-04-22 19:50:00 30.55 kg/m2 [facility] Oxygen saturation in 2022-04-22 19:50:00 96 /min [facility] Arterial blood by [facility] Pulse oximetry Branch Systolic blood 2022-03-05 [...] 2022-03-05 15:18:00 162.6 cm [facility] Body weight 2022-03-05 15:18:00 74.707 kg [facility] BMI 2022-03-05 15:18:00 28.27 kg/m2 [facility] Systolic blood 2022-02-16 21:41:00 169 mm[Hg] Univer sity of pressure [facility] Diastolic blood 2022-02-16 21:41:00 86 mm[Hg] Unive rsity of pressure [facility] Heart rate 2022-02-16 21:41:00 51 /min [facility] Body temperature 2022-02-16 21:41:00 36.56 Amina [facility] Respiratory rate 2022-02-16 21:41:00 17 /min Univ [facility] Oxygen saturation in 2022-02-16 21:41:00 98 /min University of Arterial blood by [facility] Pulse oximetry Branch Body height 2022-02-11 16:02:00 162.6 cm Universi ty of [facility] Body weight 2022-02-11 16:02:00 79.379 kg Universi ty of [facility] BMI 2022-02-11 16:02:00 30.04 kg/m2 Universi ty [facility] Systolic blood 2021-11-20 13:47:00 165 mm[Hg] Univer sity of [facility] Diastolic blood 2021-11-20 13:47:00 83 mm[Hg] Unive rsity of [facility] Heart rate 2021-11-20 13:47:00 58 /min Universi ty [facility] Body temperature 2021-11-20 13:42:00 36.39 [facility]a [facility] 2021-11-20 13:42:00 16 /min [facility] height 2021-11-20 13:42:00 162.6 cm Universi ty [facility] Body weight 2021-11-20 13:42:00 84.369 kg Universi ty [facility] BMI 2021-11-20 13:42:00 31.93 kg/m2 Universi ty [facility] Systolic blood 2021-07-14 15:18:00 142 mm[Hg] [facility] [...] 2022-05-10 22:00:00 159 mm[Hg] Univer sity of [facility] Diastolic blood 2022-05-10 22:00:00 87 mm[Hg] Unive rsity of [facility] Heart rate 2022-05-10 22:00:00 56 /min Universi ty [facility] Body temperature 2022-05-10 22:00:00 36.61 Amina Univ ers[facility] of [facility] Respiratory rate 2022-05-10 22:00:00 17 /min Univ ersity of [facility] Oxygen saturation in 2022-05-10 22:00:00 98 /min University of Arterial blood by [facility] Pulse oximetry Branch Body weight 2022-05-10 16:29:00 78.926 kg [facility] BMI 2022-05-10 16:29:00 29.87 kg/m2 [facility] ty of [facility] Body height 2022-05-06 20:12:00 162.6 cm Universi ty of [facility] Systolic blood 2022-03-05 15:23:00 167 mm[Hg] Univer sity of pressure [facility] Diastolic blood 2022-03-05 15:23:00 105 mm[Hg] Unive rsity of [facility] Heart rate 2022-03-05 15:23:00 49 /min Universi ty of [facility] Body temperature 2022-03-05 15:18:00 36.67 Amina Univ [facility] of [facility] Respiratory rate 2022-03-05 15:18:00 18 /min Univ ers[facility] of [facility] Body height 2022-03-05 15:18:00 162.6 cm [facility] Body weight 2022-03-05 15:18:00 74.707 kg [facility] BMI 2022-03-05 15:18:00 28.27 kg/m2 [facility] Oxygen saturation in 2022-02-16 21:41:00 98 /min [facility] Arterial blood by [facility] Pulse oximetry Branch Systolic blood 2020-12-08 15:48:00 125 mm[Hg] [facility] pressure Diastolic blood 2020-12-08 15:48:00 76 mm[Hg] [facility] pressure Heart rate 2020-12-08 15:48:00 64 /[facility] Body temperature 2020-12-08 15:48:00 36.61 Amina [facility] Respiratory rate 2020-12-08 15:48:00 17 /min [facility] Body height 2020-12-08 15:48:00 162.6 cm [facility] Body weight 2020-12-08 15:48:00 98.884 kg [facility] BMI 2020-12-08 15:48:00 37.42 kg/m2 [facility] Oxygen saturation in 2020-12-08 15:48:00 97 /min [facility] Arterial blood by Pulse oximetry Respitory Rate 2020-08-30 13:00:00 Memori al Marty Systolic (mm Hg) 2020-08-30 13:00:00 Caesar [place] Diastolic (mm Hg) 2020-08-30 13:00:00 Mem orial [place] Systolic (mm Hg) 2020-08-30 11:00:00 Caesar [facility] [place] Diastolic (mm Hg) 2020-08-30 11:00:00 Mem orial [place] Temperature Oral (F) 2020-08-30 11:00:00 98.4 F [facility] [place] Respitory Rate 2020-08-30 11:00:00 [facility] [place] Respitory Rate 2020-08-30 10:00:00 [facility] [place] Systolic (mm Hg) 2020-08-30 10:00:00 Caesra [facility] [place] Diastolic (mm Hg) 2020-08-30 10:00:00 Mem [facility] [place] Temperature Oral (F) 2020-08-30 00:00:00 96.9 F [facility] Temperature Oral (F) 2020-08-29 11:26:00 97.6 F [facility] Height 2020-08-29 10:30:00 162.56 cm [facility] Weight 2020-08-29 10:30:00 [facility] BMI Calculated 2020-08-29 10:30:00 [facility] [place] Procedures Procedure Date / Time Performing Clinician Source Performed PROTHROMBIN TIME / INR 2023-01-27 21:09:00 [facility] PARTIAL THRMPLAS 2023-01-27 21:09:00 [facility]ELVIS W 2023-01-27 20:54:00 [facility] LIPASE 2023-01-27 18:58:00 Bill Coles [facility] MAGNESIUM 2023-01-27 18:58:00 Bill Coles Kiersten [facility] TROPONIN I 2023-01-27 18:58:00 Bill Coles Kiersten [facility] COMP. METABOLIC PANEL 2023-01-27 18:58:00 Bill Coles [facility] ([id number]) Medical Branch CBC WITH DIFF 2023-01-27 18:58:00 Bill Coles Kiersten [facility] URINALYSIS 2023-01-27 18:58:00 Bill Coles [facility] COVID-19 (ID NOW RAPID 2023-01-27 16:32:00 Bill Coles [facility] TESTING) [facility] URINALYSIS 2022-05-10 19:36:00 Home Matthews [facility] TROPONIN I 2022-05-10 18:34:00 Home Matthews [facility] COMP. METABOLIC PANEL 2022-05-10 18:34:00 Home Matthews [facility] ([id number]) [facility] CBC WITH DIFF 2022-05-10 18:34:00 Home Matthews [facility] XR CHEST 2 VW 2022-05-10 17:24:58 Byron Home B [facility] CONSENT/REFUSAL FOR 2022-05-10 16:26:23 Doctor Unassigned, [facility] DIAGNOSIS AND TREATMENT [place] [facility] CONSENT/REFUSAL FOR 2022-05-10 16:26:09 Doctor Unassigned, [facility] DIAGNOSIS AND TREATMENT [place] [facility] URINALYSIS 2022-05-08 22:43:00 Theresa Hickman [facility] XR CHEST 2 VW 2022-05-06 22:56:53 Anette Olea [facility] COMP. METABOLIC PANEL 2022-05-06 22:14:00 Anette Olea [facility] ([id number]) Medical Branch CBC WITH DIFF 2022-05-06 22:14:00 Anette Olea [facility] COVID-19 (ID NOW RAPID 2022-05-06 22:14:00 Anette Olea [facility] TESTING [facility] [place] BASIC METABOLIC PANEL (NA, 2022-04-22 21:23:00 Paulette Gray [facility] K, CL, CO2, GLUCOSE, BUN, Medica l Branch CREATININE, CA) CBC WITH DIFF 2022-04-22 21:23:00 Paulette Gray [facility] CONSENT/REFUSAL FOR 2022-04-22 19:45:46 Doctor Unassigned, [facility] DIAGNOSIS AND TREATMENT [place] Medical [facility] SARS-COV-2 COVID-19 2022-03-05 16:09:27 [facility] DIMITRIS-SUCROSE VACCINE [address] [place] [address] YRS+, BIVALENT 0.3ML, IM, (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) FLU 2022-03-05 16:09:27 [facility] VACC(),65+YR,0.5 Medica l Branch ML,IM,ADJUVANTED,QUAD(FLUA D) FLU 2022-03-05 16:09:27 [facility] VACC(),65+YR,0.5 Medica l Branch ML,IM,ADJUVANTED,QUAD(FLUA D) SARS-COV-2 COVID-19 2022-03-05 16:09:27 [facility] DIMITRIS-SUCROSE VACCINE [address] [place] [address] YRS+, BIVALENT 0.3ML, IM, (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) MAGNESIUM 2022-02-15 09:41:00 Sofia Garcia [facility] BASIC METABOLIC PANEL (NA, 2022-02-15 09:41:00 Sofia Garcia [facility] K, CL, CO2, GLUCOSE, BUN, Medica l Branch CREATININE, CA) CBC WITH DIFF 2022-02-15 09:41:00 Sofia Garcia [facility] N-TERMINAL PRO-BNP 2022-02-15 09:41:00 Sofia Garcia [facility] CBC WITH DIFF 2022-02-15 09:41:00 Sofia Garcia [facility] BASIC METABOLIC PANEL (NA, 2022-02-15 09:41:00 Garcia, [facility] K, CL, CO2, GLUCOSE, BUN, Medica l Branch CREATININE, CA) MAGNESIUM 2022-02-15 09:41:00 [facility] N-TERMINAL PRO-BNP 2022-02-15 09:41:00 Sofia Garcia [facility] BASIC METABOLIC PANEL (NA, 2022-02-13 09:40:00 Sofia Garcia [facility] K, CL, CO2, GLUCOSE, BUN, Medica l Branch CREATININE, CA) CBC WITH DIFF 2022-02-13 09:40:00 [facility] BASIC METABOLIC PANEL (NA, 2022-02-13 09:40:00 Sofia Garcia [facility] K, CL, CO2, GLUCOSE, BUN, Medica l Branch CREATININE, CA) CBC WITH DIFF 2022-02-13 09:40:00 [facility] TROPONIN I 2022-02-11 23:41:00 [facility] N-TERMINAL PRO-BNP 2022-02-11 23:41:00 Radha [facility] TROPONIN I 2022-02-11 23:41:00 [facility] N-TERMINAL PRO-BNP 2022-02-11 23:41:00 Sofia Garcia [facility] HB ECG ROUTINE & RHYTHM 2022-02-11 22:15:36 [facility] (TTE) 2022-02-11 21:26:50 [facility] 2022-02-11 21:26:50 [facility]BD[facility] PELVIS W 2022-02-11 07:45:43 Reilly Means [facility] CT ABDOMEN PELVIS W 2022-02-11 07:45:43 Reilly Means [facility] RAPID INFLUENZA A/B 2022-02-11 06:54:00 Reilly Means [facility] RAPID INFLUENZA A/B 2022-02-11 06:54:00 Reilly Means [facility] URINALYSIS 2022-02-11 06:45:00 Reilly Means [facility] URINE CULTURE 2022-02-11 06:45:00 Reilly Means [facility] URINALYSIS 2022-02-11 06:45:00 Reilly Means [facility] URINE CULTURE 2022-02-11 06:45:00 Reilly Means [facility] HB ECG ROUTINE & RHYTHM 2022-02-11 05:22:08 Reilly Means [facility] HB ECG ROUTINE & RHYTHM 2022-02-11 05:22:08 Reilly Means [facility] BLOOD CULTURE SCREEN 2022-02-11 04:58:00 Reilly Means [facility] TROPONIN I 2022-02-11 04:58:00 Reilly Means [facility] COMP. METABOLIC PANEL 2022-02-11 04:58:00 Reilly Means [facility] ([id number]) [facility] CBC WITH DIFF 2022-02-11 04:58:00 Reilly Means [facility] PROTHROMBIN TIME / INR 2022-02-11 04:58:00 Reilly Means [facility] ACTIVATED PARTIAL THRMPLAS 2022-02-11 04:58:00 [facility] N-TERMINAL PRO-BNP 2022-02-11 04:58:00 Reilly Means [facility] LACTIC ACID WHOLE BLOOD 2022-02-11 04:58:00 Reilly Means [facility] COVID-19 (ID NOW RAPID 2022-02-11 04:58:00 Reilly Means [facility] TESTING) Medical Branch LAB ONLY COVID 2022-02-11 04:58:00 Reilly Means [facility] CBC WITH DIFF 2022-02-11 04:58:00 Reilly Means [facility] ACTIVATED PARTIAL THRMPLAS 2022-02-11 04:58:00 [facility] PROTHROMBIN TIME / INR 2022-02-11 04:58:00 Reilly Means [facility] COVID-19 (ID NOW RAPID 2022-02-11 04:58:00 Reilly Means [facility] TESTING) Medical Branch COMP. METABOLIC PANEL 2022-02-11 04:58:00 Reilly Means [facility] ([id number]) Medical Branch TROPONIN I 2022-02-11 04:58:00 Reilly Means [facility] N-TERMINAL PRO-BNP 2022-02-11 04:58:00 Reilly Means [facility] BLOOD CULTURE SCREEN 2022-02-11 04:58:00 Reilly Means [facility] LACTIC ACID WHOLE BLOOD 2022-02-11 04:58:00 Reilly Means [facility] LAB ONLY COVID 2022-02-11 04:58:00 Reilly Means [facility] INTERPRETATION [facility] XR CHEST 1 VW 2022-02-11 04:27:42 Miguelangel [facility] XR CHEST 1 VW 2022-02-11 04:27:42 Miguelangel Reilly [facility] HOSPITAL ADMISSION 2022-02-10 05:01:00 Doctor Unassigned, [facility] Name [facility] HOSPITAL ADMISSION 2022-02-10 05:01:00 Doctor Unassigned, [facility] [place] [facility] ECG 12-LEAD 2021-07-14 15:14:00 Elan Lira [facility] [id number] 2021-06-17 00:00:00 RASSA [facility] GASTROINTESTINAL PANEL 2020-12-08 22:21:00 Eliseo Arce [facility] XR ABDOMEN 1 VW 2020-12-08 18:06:32 Eliseo Arce spital OR [place] < 1 HOUR 2020-09-05 22:39:00 Eliseo Arce spijose SURGICAL PATHOLOGY REQUEST 2020-09-05 21:54:[address] [facility] XR CHEST 1 VW PORTABLE 2020-09-05 19:55:00 Eliseo Arce [facility] DISCHARGE PATIENT 2020-09-05 17:27:55 Lucas Harris [facility] CT AN ELECTIVE 2020-09-05 16:47:23 [facility], INTRAOPERATIVE 2020-09-05 16:27:00 Eliseo Arce [facility] PARTIAL THROMBOPLASTIN 2020-09-05 15:04:00 Sarai Maharaj [facility] TIME (PTT) M. PROTHROMBIN TIME WITH INR 2020-09-05 15:04:00 iMndy Maharaj [facility] M. Plan of Care Planned Activity Planned Date Details Comments Source Future Scheduled 2023-02-07 Screening for [facility] Test 14:07:46 malignant neoplasm of colon (procedure) [code = 241598240] Future Scheduled 2023-02-07 Screening for [facility] Test 14:07:46 malignant neoplasm of colon (procedure) [code = 749529535] Future Scheduled 2023-02-07 Screening for [facility] Test 14:07:46 malignant neoplasm of colon (procedure) [code = 207169612] Future Scheduled 2023-02-07 SHINGLES VACCINES (1 Met [facility] Test 14:07:46 of 2) [code = SHINGLES VACCINES (1 of 2)] Future Scheduled 2023-02-07 BREAST CANCER [facility] Test 14:07:46 SCREENING [code = BREAST CANCER SCREENING] Future Scheduled 2023-02-07 Screening for [facility] Test 14:07:46 malignant neoplasm of colon (procedure) [code = 424370888] Future Scheduled 2023-02-07 Screening for [facility] Test 14:07:46 malignant neoplasm of colon (procedure) [code = 560726824] Future Scheduled 2023-02-07 HEPATITIS B VACCINES Met [facility] Test 14:07:46 (1 of 3 - Risk 3-dose series) [code = HEPATITIS B VACCINES (1 of 3 - Risk 3-dose series)] Future Scheduled 2023-02-07 COVID-19 VACCINE (3 - [facility] Test 14:07:46 Pfizer series) [code = COVID-19 VACCINE (3 - Pfizer series)] Future Scheduled 2023-02-07 65+ PNEUMOCOCCAL [facility] Test 14:07:46 VACCINE (4 - PPSV23 or PCV20) [code = 65+ PNEUMOCOCCAL VACCINE (4 - PPSV23 or PCV20)] Future Scheduled 2023-02-07 INFLUENZA VACCINE (#1) [facility] Test 14:07:46 [code = INFLUENZA VACCINE (#1)] Future Scheduled 2023 Screening for [facility] Test 08:21:28 malignant neoplasm of colon (procedure) [code = 100746585] Future Scheduled 2023 Screening for [facility] Test 08:21:28 malignant neoplasm of colon (procedure) [code = 957784084] Future Scheduled 2023 Screening for [facility] Test 08:21:28 malignant neoplasm of colon (procedure) [code = 934774542] Future Scheduled 2023 SHINGLES VACCINES (1 Met [facility] Test 08:21:28 of 2) [code = SHINGLES VACCINES (1 of 2)] Future Scheduled 2023 BREAST CANCER [facility] Test 08:21:28 SCREENING [code = BREAST CANCER SCREENING] Future Scheduled 2023 Screening for [facility] Test 08:21:28 malignant neoplasm of colon (procedure) [code = 740109332] Future Scheduled 2023 Screening for [facility] Test 08:21:28 malignant neoplasm of colon (procedure) [code = 705273838] Future Scheduled 2023 HEPATITIS B VACCINES Met [facility] Test 08:21:28 (1 of 3 - Risk 3-dose series) [code = HEPATITIS B VACCINES (1 of 3 - Risk 3-dose series)] Future Scheduled 2023 COVID-19 VACCINE (3 - Me [facility] Test 08:21:28 Pfizer series) [code = COVID-19 VACCINE (3 - Pfizer series)] Future Scheduled 2023 65+ PNEUMOCOCCAL [facility] Test 08:21:28 VACCINE (4 - PPSV23 if available, else PCV20) [code = 65+ PNEUMOCOCCAL VACCINE (4 - PPSV23 if available, else PCV20)] Future Scheduled 2023 INFLUENZA VACCINE (#1) [facility] Test 08:21:28 [code = INFLUENZA VACCINE (#1)] Future Scheduled 2023 Screening for [facility] Test 08:21:28 malignant neoplasm of colon (procedure) [code = 509355905] Future Scheduled 2023 Screening for [facility] Test 08:21:28 malignant neoplasm of colon (procedure) [code = 892691744] Future Scheduled 2023 Screening for [facility] Test 08:21:28 malignant neoplasm of colon (procedure) [code = 234388741] Future Scheduled 2023 SHINGLES VACCINES (1 Met [facility] Test 08:21:28 of 2) [code = SHINGLES VACCINES (1 of 2)] Future Scheduled 2023 BREAST CANCER [facility] Test 08:21:28 SCREENING [code = BREAST CANCER SCREENING] Future Scheduled 2023 Screening for [facility] Test 08:21:28 malignant neoplasm of colon (procedure) [code = 986224228] Future Scheduled 2023 Screening for [facility] Test 08:21:28 malignant neoplasm of colon (procedure) [code = 168886039] Future Scheduled 2023 HEPATITIS B VACCINES Met [facility] Test 08:21:28 (1 of 3 - Risk 3-dose series) [code = HEPATITIS B VACCINES (1 of 3 - Risk 3-dose series)] Future Scheduled 2023 COVID-19 VACCINE (3 - [facility] Test 08:21:28 Pfizer series) [code = COVID-19 VACCINE (3 - Pfizer series)] Future Scheduled 2023 65+ PNEUMOCOCCAL [facility] Test 08:21:28 VACCINE (4 - PPSV23 if available, else PCV20) [code = 65+ PNEUMOCOCCAL VACCINE (4 - PPSV23 if available, else PCV20)] Future Scheduled 2023 INFLUENZA VACCINE (#1) [facility] Test 08:21:28 [code = INFLUENZA VACCINE (#1)] Future Scheduled 2023-01-17 Screening for [facility] Test 02:09:59 malignant neoplasm of colon (procedure) [code = 405623611] Future Scheduled 2023-01-17 Screening for [facility] Test 02:09:59 malignant neoplasm of colon (procedure) [code = 717270071] Future Scheduled 2023-01-17 Screening for [facility] Test 02:09:59 malignant neoplasm of colon (procedure) [code = 017202434] Future Scheduled 2023-01-17 SHINGLES VACCINES (1 Met [facility] Test 02:09:59 of 2) [code = SHINGLES VACCINES (1 of 2)] Future Scheduled 2023-01-17 BREAST CANCER [facility] Test 02:09:59 SCREENING [code = BREAST CANCER SCREENING] Future Scheduled 2023-01-17 Screening for [facility] Test 02:09:59 malignant neoplasm of colon (procedure) [code = 485219596] Future Scheduled 2023-01-17 Screening for [facility] Test 02:09:59 malignant neoplasm of colon (procedure) [code = 546988177] Future Scheduled 2023-01-17 HEPATITIS B VACCINES Met [facility] Test 02:09:59 (1 of 3 - Risk 3-dose series) [code = HEPATITIS B VACCINES (1 of 3 - Risk 3-dose series)] Future Scheduled 2023-01-17 COVID-19 VACCINE (3 - Me [facility] Test 02:09:59 Pfizer series) [code = COVID-19 VACCINE (3 - Pfizer series)] Future Scheduled 2023-01-17 65+ PNEUMOCOCCAL [facility] Test 02:09:59 VACCINE (4 - PPSV23 if available, else PCV20) [code = 65+ PNEUMOCOCCAL VACCINE (4 - PPSV23 if available, else PCV20)] Future Scheduled 2023-01-17 INFLUENZA VACCINE (#1) [facility] Test 02:09:59 [code = INFLUENZA VACCINE (#1)] Future Scheduled 2022-12-23 Screening for [facility] Test 06:27:39 malignant neoplasm of colon (procedure) [code = 819747991] Future Scheduled 2022-12-23 Screening for [facility] Test 06:27:39 malignant neoplasm of colon (procedure) [code = 067107497] Future Scheduled 2022-12-23 Screening for [facility] Test 06:27:39 malignant neoplasm of colon (procedure) [code = 887945701] Future Scheduled 2022-12-23 SHINGLES VACCINES (1 Met [facility] Test 06:27:39 of 2) [code = SHINGLES VACCINES (1 of 2)] Future Scheduled 2022-12-23 BREAST CANCER [facility] Test 06:27:39 SCREENING [code = BREAST CANCER SCREENING] Future Scheduled 2022-12-23 Screening for [facility] Test 06:27:39 malignant neoplasm of colon (procedure) [code = 654979965] Future Scheduled 2022-12-23 Screening for [facility] Test 06:27:39 malignant neoplasm of colon (procedure) [code = 334202591] Future Scheduled 2022-12-23 HEPATITIS B VACCINES Met [facility] Test 06:27:39 (1 of 3 - Risk 3-dose series) [code = HEPATITIS B VACCINES (1 of 3 - Risk 3-dose series)] Future Scheduled 2022-12-23 COVID-19 VACCINE (3 - Me [facility] Test 06:27:39 Pfizer series) [code = COVID-19 VACCINE (3 - Pfizer series)] Future Scheduled 2022-12-23 65+ PNEUMOCOCCAL [facility] Test 06:27:39 VACCINE (4 - PPSV23 if available, else PCV20) [code = 65+ PNEUMOCOCCAL VACCINE (4 - PPSV23 if available, else PCV20)] Future Scheduled 2022-12-23 INFLUENZA VACCINE [facility] Test 06:27:39 [code = INFLUENZA VACCINE] Future Scheduled 2022-12-23 Screening for [facility] Test 06:27:39 malignant neoplasm of colon (procedure) [code = 258775498] Future Scheduled 2022-12-23 Screening for [facility] Test 06:27:39 malignant neoplasm of colon (procedure) [code = 688722693] Future Scheduled 2022-12-23 Screening for [facility] Test 06:27:39 malignant neoplasm of colon (procedure) [code = 958141300] Future Scheduled 2022-12-23 SHINGLES VACCINES (1 Met [facility] Test 06:27:39 of 2) [code = SHINGLES VACCINES (1 of 2)] Future Scheduled 2022-12-23 BREAST CANCER [facility] Test 06:27:39 SCREENING [code = BREAST CANCER SCREENING] Future Scheduled 2022-12-23 Screening for [facility] Test 06:27:39 malignant neoplasm of colon (procedure) [code = 693062699] Future Scheduled 2022-12-23 Screening for [facility] Test 06:27:39 malignant neoplasm of colon (procedure) [code = 828981784] Future Scheduled 2022-12-23 HEPATITIS B VACCINES Met [facility] Test 06:27:39 (1 of 3 - Risk 3-dose series) [code = HEPATITIS B VACCINES (1 of 3 - Risk 3-dose series)] Future Scheduled 2022-12-23 COVID-19 VACCINE (3 - Me [facility] Test 06:27:39 Pfizer series) [code = COVID-19 VACCINE (3 - Pfizer series)] Future Scheduled 2022-12-23 65+ PNEUMOCOCCAL [facility] Test 06:27:39 VACCINE (4 - PPSV23 if available, else PCV20) [code = 65+ PNEUMOCOCCAL VACCINE (4 - PPSV23 if available, else PCV20)] Future Scheduled 2022-12-23 INFLUENZA VACCINE [facility] Test 06:27:39 [code = INFLUENZA VACCINE] Future Scheduled 2022-12-23 Screening for [facility] Test 06:27:39 malignant neoplasm of colon (procedure) [code = 688446786] Future Scheduled 2022-12-23 Screening for [facility] Test 06:27:39 malignant neoplasm of colon (procedure) [code = 907899884] Future Scheduled 2022-12-23 Screening for [facility] Test 06:27:39 malignant neoplasm of colon (procedure) [code = 855714465] Future Scheduled 2022-12-23 SHINGLES VACCINES (1 Met [facility] Test 06:27:39 of 2) [code = SHINGLES VACCINES (1 of 2)] Future Scheduled 2022-12-23 BREAST CANCER [facility] Test 06:27:39 SCREENING [code = BREAST CANCER SCREENING] Future Scheduled 2022-12-23 Screening for [facility] Test 06:27:39 malignant neoplasm of colon (procedure) [code = 070113095] Future Scheduled 2022-12-23 Screening for [facility] Test 06:27:39 malignant neoplasm of colon (procedure) [code = 262341719] Future Scheduled 2022-12-23 HEPATITIS B VACCINES Met [facility] Test 06:27:39 (1 of 3 - Risk 3-dose series) [code = HEPATITIS B VACCINES (1 of 3 - Risk 3-dose series)] Future Scheduled 2022-12-23 COVID-19 VACCINE (3 - [facility] Test 06:27:39 Pfizer series) [code = COVID-19 VACCINE (3 - Pfizer series)] Future Scheduled 2022-12-23 65+ PNEUMOCOCCAL [facility] Test 06:27:39 VACCINE (4 - PPSV23 if available, else PCV20) [code = 65+ PNEUMOCOCCAL VACCINE (4 - PPSV23 if available, else PCV20)] Future Scheduled 2022-12-23 [facility]INE [facility] 06:27:39 [code = INFLUENZA VACCINE] Future Scheduled 2022-12-23 Screening for [facility] Test 06:27:39 malignant neoplasm of colon (procedure) [code = 554464631] Future Scheduled 2022-12-23 Screening for [facility] Test 06:27:39 malignant neoplasm of colon (procedure) [code = 612142819] Future Scheduled 2022-12-23 Screening for [facility] Test 06:27:39 malignant neoplasm of colon (procedure) [code = 807898756] Future Scheduled 2022-12-23 SHINGLES VACCINES (1 Met [facility] Test 06:27:39 of 2) [code = SHINGLES VACCINES (1 of 2)] Future Scheduled 2022-12-23 BREAST CANCER [facility] Test 06:27:39 SCREENING [code = BREAST CANCER SCREENING] Future Scheduled 2022-12-23 Screening for [facility] Test 06:27:39 malignant neoplasm of colon (procedure) [code = 206170601] Future Scheduled 2022-12-23 Screening for [facility] Test 06:27:39 malignant neoplasm of colon (procedure) [code = 517150867] Future Scheduled 2022-12-23 HEPATITIS B VACCINES Met [facility] Test 06:27:39 (1 of 3 - Risk 3-dose series) [code = HEPATITIS B VACCINES (1 of 3 - Risk 3-dose series)] Future Scheduled 2022-12-23 COVID-19 VACCINE (3 - Me [facility] Test 06:27:39 Pfizer series) [code = COVID-19 VACCINE (3 - Pfizer series)] Future Scheduled 2022-12-23 65+ [facility]OCOCCAL [facility] Test 06:27:39 VACCINE (4 - PPSV23 if available, else PCV20) [code = 65+ PNEUMOCOCCAL VACCINE (4 - PPSV23 if available, else PCV20)] Future Scheduled 2022-12-23 INFLUENZA VACCINE [facility] Test 06:27:39 [code = INFLUENZA VACCINE] Future Scheduled 2022-12-23 Screening for [facility] Test 06:27:39 malignant neoplasm of colon (procedure) [code = [id number]] Future Scheduled 2022-12-23 Screening for [facility] Test 06:27:39 malignant neoplasm of colon (procedure) [code = 773266418] Future Scheduled 2022-12-23 Screening for [facility] Test 06:27:39 malignant neoplasm of colon (procedure) [code = 838448161] Future Scheduled 2022-12-23 SHINGLES VACCINES (1 Met [facility] Test 06:27:39 of 2) [code = SHINGLES VACCINES (1 of 2)] Future Scheduled 2022-12-23 BREAST CANCER [facility] Test 06:27:39 SCREENING [code = BREAST CANCER SCREENING] Future Scheduled 2022-12-23 Screening for [facility] Test 06:27:39 malignant neoplasm of colon (procedure) [code = 354186131] Future Scheduled 2022-12-23 Screening for [facility] Test 06:27:39 malignant neoplasm of colon (procedure) [code = 988621095] Future Scheduled 2022-12-23 HEPATITIS B VACCINES Met [facility] Test 06:27:39 (1 of 3 - Risk 3-dose series) [code = HEPATITIS B VACCINES (1 of 3 - Risk 3-dose series)] Future Scheduled 2022-12-23 COVID-19 VACCINE (3 - [facility] Test 06:27:39 Pfizer series) [code = COVID-19 VACCINE (3 - Pfizer series)] Future Scheduled 2022-12-23 65+ PNEUMOCOCCAL [facility] Test 06:27:39 VACCINE (4 - PPSV23 if available, else PCV20) [code = 65+ PNEUMOCOCCAL VACCINE (4 - PPSV23 if available, else PCV20)] Future Scheduled 2022-12-23 ZZZ INFLUENZA VACCINE [facility] Test 06:27:39 [code = ZZZ INFLUENZA VACCINE] Future Scheduled 2022-12-23 Screening for [facility] Test 06:27:39 malignant neoplasm of colon (procedure) [code = [id number]] Future Scheduled 2022-12-23 Screening for [facility] Test 06:27:39 malignant neoplasm of colon (procedure) [code = 270078322] Future Scheduled 2022-12-23 Screening for [facility] Test 06:27:39 malignant neoplasm of colon (procedure) [code = 479603860] Future Scheduled 2022-12-23 SHINGLES VACCINES (1 Met [facility] Test 06:27:39 of 2) [code = SHINGLES VACCINES (1 of 2)] Future Scheduled 2022-12-23 BREAST CANCER [facility] Test 06:27:39 SCREENING [code = BREAST CANCER SCREENING] Future Scheduled 2022-12-23 Screening for [facility] Test 06:27:39 malignant neoplasm of colon (procedure) [code = 925042095] Future Scheduled 2022-12-23 Screening for [facility] Test 06:27:39 malignant neoplasm of colon (procedure) [code = 896745054] Future Scheduled 2022-12-23 HEPATITIS B VACCINES Met [facility] Test 06:27:39 (1 of 3 - Risk 3-dose series) [code = HEPATITIS B VACCINES (1 of 3 - Risk 3-dose series)] Future Scheduled 2022-12-23 COVID-19 VACCINE (3 - [facility] Test 06:27:39 Pfizer series) [code = COVID-19 VACCINE (3 - Pfizer series)] Future Scheduled 2022-12-23 65+ PNEUMOCOCCAL [facility] Test 06:27:39 VACCINE (4 - PPSV23 if available, else PCV20) [code = 65+ PNEUMOCOCCAL VACCINE (4 - PPSV23 if available, else PCV20)] Future Scheduled 2022-12-23 ZZZ INFLUENZA VACCINE [facility] Test 06:27:39 [code = ZZZ INFLUENZA VACCINE] Future Scheduled 2022-12-13 Screening for [facility] Test 16:46:16 malignant neoplasm of colon (procedure) [code = 638128017] Future Scheduled 2022-12-13 Screening for [facility] Test 16:46:16 malignant neoplasm of colon (procedure) [code = 730151317] Future Scheduled 2022-12-13 Screening for [facility] Test 16:46:16 malignant neoplasm of colon (procedure) [code = 812156896] Future Scheduled 2022-12-13 SHINGLES VACCINES (1 Met [facility] Test 16:46:16 of 2) [code = SHINGLES VACCINES (1 of 2)] Future Scheduled 2022-12-13 BREAST CANCER [facility] Test 16:46:16 SCREENING [code = BREAST CANCER SCREENING] Future Scheduled 2022-12-13 Screening for [facility] Test 16:46:16 malignant neoplasm of colon (procedure) [code = 746641004] Future Scheduled 2022-12-13 Screening for [facility] Test 16:46:16 malignant neoplasm of colon (procedure) [code = 200195883] Future Scheduled 2022-12-13 HEPATITIS B VACCINES Met [facility] Test 16:46:16 (1 of 3 - Risk 3-dose series) [code = HEPATITIS B VACCINES (1 of 3 - Risk 3-dose series)] Future Scheduled 2022-12-13 COVID-19 VACCINE (3 - [facility] Test 16:46:16 Pfizer series) [code = COVID-19 VACCINE (3 - Pfizer series)] Future Scheduled 2022-12-13 65+ PNEUMOCOCCAL [facility] Test 16:46:16 VACCINE (4 - PPSV23 if available, else PCV20) [code = 65+ PNEUMOCOCCAL VACCINE (4 - PPSV23 if available, else PCV20)] Future Scheduled 2022-12-13 INFLUENZA VACCINE [facility] Test 16:46:16 [code = INFLUENZA VACCINE] Future Scheduled 2022-12-13 Screening for [facility] Test 16:46:16 malignant neoplasm of colon (procedure) [code = 214745150] Future Scheduled 2022-12-13 Screening for [facility] Test 16:46:16 malignant neoplasm of colon (procedure) [code = 514602587] Future Scheduled 2022-12-13 Screening for [facility] Test 16:46:16 malignant neoplasm of colon (procedure) [code = 615431337] Future Scheduled 2022-12-13 SHINGLES VACCINES (1 Met [facility] Test 16:46:16 of 2) [code = SHINGLES VACCINES (1 of 2)] Future Scheduled 2022-12-13 BREAST CANCER [facility] Test 16:46:16 SCREENING [code = BREAST CANCER SCREENING] Future Scheduled 2022-12-13 Screening for [facility] Test 16:46:16 malignant neoplasm of colon (procedure) [code = 835157644] Future Scheduled 2022-12-13 Screening for [facility] Test 16:46:16 malignant neoplasm of colon (procedure) [code = 149558594] Future Scheduled 2022-12-13 HEPATITIS B VACCINES Met [facility] Test 16:46:16 (1 of 3 - Risk 3-dose series) [code = HEPATITIS B VACCINES (1 of 3 - Risk 3-dose series)] Future Scheduled 2022-12-13 COVID-19 VACCINE (3 - [facility] Test 16:46:16 Pfizer series) [code = COVID-19 VACCINE (3 - Pfizer series)] Future Scheduled 2022-12-13 65+ PNEUMOCOCCAL [facility] Test 16:46:16 VACCINE (4 - PPSV23 if available, else PCV20) [code = 65+ PNEUMOCOCCAL VACCINE (4 - PPSV23 if available, else PCV20)] Future Scheduled 2022-12-13 INFLUENZA VACCINE [facility] Test 16:46:16 [code = INFLUENZA VACCINE] Future Scheduled 2022-12-13 Screening for [facility] Test 16:46:16 malignant neoplasm of colon (procedure) [code = 718265285] Future Scheduled 2022-12-13 Screening for [facility] Test 16:46:16 malignant neoplasm of colon (procedure) [code = 022973838] Future Scheduled 2022-12-13 Screening for [facility] Test 16:46:16 malignant neoplasm of colon (procedure) [code = 753748005] Future Scheduled 2022-12-13 SHINGLES VACCINES (1 Met [facility] Test 16:46:16 of 2) [code = SHINGLES VACCINES (1 of 2)] Future Scheduled 2022-12-13 BREAST CANCER [facility] Test 16:46:16 SCREENING [code = BREAST CANCER SCREENING] Future Scheduled 2022-12-13 Screening for [facility] Test 16:46:16 malignant neoplasm of colon (procedure) [code = 325175578] Future Scheduled 2022-12-13 Screening for [facility] Test 16:46:16 malignant neoplasm of colon (procedure) [code = 108572607] Future Scheduled 2022-12-13 HEPATITIS B VACCINES Met [facility] Test 16:46:16 (1 of 3 - Risk 3-dose series) [code = HEPATITIS B VACCINES (1 of 3 - Risk 3-dose series)] Future Scheduled 2022-12-13 COVID-19 VACCINE (3 - [facility] Test 16:46:16 Pfizer series) [code = COVID-19 VACCINE (3 - Pfizer series)] Future Scheduled 2022-12-13 65+ PNEUMOCOCCAL [facility] Test 16:46:16 VACCINE (4 - PPSV23 if available, else PCV20) [code = 65+ PNEUMOCOCCAL VACCINE (4 - PPSV23 if available, else PCV20)] Future Scheduled 2022-12-13 [facility] 16:46:16 [code = INFLUENZA VACCINE] Future Scheduled 2022-11-11 Screening for [facility] Test 09:27:47 malignant neoplasm of colon (procedure) [code = 115350992] Future Scheduled 2022-11-11 Screening for [facility] Test 09:27:47 malignant neoplasm of colon (procedure) [code = 695368347] Future Scheduled 2022-11-11 Screening for [facility] Test 09:27:47 malignant neoplasm of colon (procedure) [code = 624671227] Future Scheduled 2022-11-11 SHINGLES VACCINES (1 Met [facility] Test 09:27:47 of 2) [code = SHINGLES VACCINES (1 of 2)] Future Scheduled 2022-11-11 BREAST CANCER [facility] Test 09:27:47 SCREENING [code = BREAST CANCER SCREENING] Future Scheduled 2022-11-11 Screening for [facility] Test 09:27:47 malignant neoplasm of colon (procedure) [code = 022816194] Future Scheduled 2022-11-11 Screening for [facility] Test 09:27:47 malignant neoplasm of colon (procedure) [code = 806557561] Future Scheduled 2022-11-11 HEPATITIS B VACCINES Met [facility] Test 09:27:47 (1 of 3 - Risk 3-dose series) [code = HEPATITIS B VACCINES (1 of 3 - Risk 3-dose series)] Future Scheduled 2022-11-11 COVID-19 VACCINE (3 - [facility] Test 09:27:47 Pfizer series) [code = COVID-19 VACCINE (3 - Pfizer series)] Future Scheduled 2022-11-11 65+ P[facility]UMOCOCCAL [facility] Test 09:27:47 VACCINE (4 - PPSV23 if available, else PCV20) [code = 65+ PNEUMOCOCCAL VACCINE (4 - PPSV23 if available, else PCV20)] Future Scheduled 2022-11-11 [facility]ACCINE [facility] 09:27:47 [code = INFLUENZA VACCINE] Future Scheduled 2022-11-11 Screening for [facility] Test 09:27:47 malignant neoplasm of colon (procedure) [code = 268708483] Future Scheduled 2022-11-11 Screening for [facility] Test 09:27:47 malignant neoplasm of colon (procedure) [code = 512660894] Future Scheduled 2022-11-11 Screening for [facility] Test 09:27:47 malignant neoplasm of colon (procedure) [code = 777484118] Future Scheduled 2022-11-11 SHINGLES VACCINES (1 Met [facility] Test 09:27:47 of 2) [code = SHINGLES VACCINES (1 of 2)] Future Scheduled 2022-11-11 BREAST CANCER [facility] Test 09:27:47 SCREENING [code = BREAST CANCER SCREENING] Future Scheduled 2022-11-11 Screening for [facility] Test 09:27:47 malignant neoplasm of colon (procedure) [code = 605253732] Future Scheduled 2022-11-11 Screening for [facility] Test 09:27:47 malignant neoplasm of colon (procedure) [code = 119014225] Future Scheduled 2022-11-11 HEPATITIS B VACCINES Met [facility] Test 09:27:47 (1 of 3 - Risk 3-dose series) [code = HEPATITIS B VACCINES (1 of 3 - Risk 3-dose series)] Future Scheduled 2022-11-11 COVID-19 VACCINE (3 - [facility] Test 09:27:47 Pfizer series) [code = COVID-19 VACCINE (3 - Pfizer series)] Future Scheduled 2022-11-11 65+ PNEUMOCOCCAL [facility] Test 09:27:47 VACCINE (4 - PPSV23 if available, else PCV20) [code = 65+ PNEUMOCOCCAL VACCINE (4 - PPSV23 if available, else PCV20)] Future Scheduled 2022-11-11 INFLUENZA VACCINE [facility] Test 09:27:47 [code = INFLUENZA VACCINE] Future Scheduled 2022-11-11 Screening for [facility] Test 09:27:47 malignant neoplasm of colon (procedure) [code = 991142054] Future Scheduled 2022-11-11 Screening for [facility] Test 09:27:47 malignant neoplasm of colon (procedure) [code = 240588942] Future Scheduled 2022-11-11 Screening for [facility] Test 09:27:47 malignant neoplasm of colon (procedure) [code = 858810395] Future Scheduled 2022-11-11 SHINGLES VACCINES (1 Met [facility] Test 09:27:47 of 2) [code = SHINGLES VACCINES (1 of 2)] Future Scheduled 2022-11-11 BREAST CANCER [facility] Test 09:27:47 SCREENING [code = BREAST CANCER SCREENING] Future Scheduled 2022-11-11 Screening for [facility] Test 09:27:47 malignant neoplasm of colon (procedure) [code = 268423759] Future Scheduled 2022-11-11 Screening for [facility] Test 09:27:47 malignant neoplasm of colon (procedure) [code = 056328724] Future Scheduled 2022-11-11 HEPATITIS B VACCINES [facility] Test 09:27:47 (1 of 3 - Risk 3-dose series) [code = HEPATITIS B VACCINES (1 of 3 - Risk 3-dose series)] Future Scheduled 2022-11-11 COVID-19 VACCINE (3 - [facility] Test 09:27:47 Pfizer series) [code = COVID-19 VACCINE (3 - Pfizer series)] Future Scheduled 2022-11-11 65+ PNEUMOCOCCAL [facility] Test 09:27:47 VACCINE (4 - PPSV23 if available, else PCV20) [code = 65+ PNEUMOCOCCAL VACCINE (4 - PPSV23 if available, else PCV20)] Future Scheduled 2022-11-11 INFLUENZA VACCINE [facility] Test 09:27:47 [code = INFLUENZA VACCINE] Future Scheduled 2022-10-27 Screening for [facility] Test 22:40:19 malignant neoplasm of colon (procedure) [code = 772821190] Future Scheduled 2022-10-27 Screening for [facility] Test 22:40:19 malignant neoplasm of colon (procedure) [code = 739182818] Future Scheduled 2022-10-27 Screening for [facility] Test 22:40:19 malignant neoplasm of colon (procedure) [code = 352364114] Future Scheduled 2022-10-27 SHINGLES VACCINES (1 Met [facility] Test 22:40:19 of 2) [code = SHINGLES VACCINES (1 of 2)] Future Scheduled 2022-10-27 BREAST CANCER [facility] Test 22:40:19 SCREENING [code = BREAST CANCER SCREENING] Future Scheduled 2022-10-27 Screening for [facility] Test 22:40:19 malignant neoplasm of colon (procedure) [code = 629983469] Future Scheduled 2022-10-27 Screening for [facility] Test 22:40:19 malignant neoplasm of colon (procedure) [code = 631359824] Future Scheduled 2022-10-27 HEPATITIS B VACCINES Met [facility] Test 22:40:19 (1 of 3 - Risk 3-dose series) [code = HEPATITIS B VACCINES (1 of 3 - Risk 3-dose series)] Future Scheduled 2022-10-27 COVID-19 VACCINE (3 - [facility] Test 22:40:19 Pfizer series) [code = COVID-19 VACCINE (3 - Pfizer series)] Future Scheduled 2022-10-27 65+ PNEUMOCOCCAL [facility] Test 22:40:19 VACCINE (4 - PPSV23 if available, else PCV20) [code = 65+ PNEUMOCOCCAL VACCINE (4 - PPSV23 if available, else PCV20)] Future Scheduled 2022-10-27 INFLUENZA VACCINE [facility] Test 22:40:19 [code = INFLUENZA VACCINE] Future Scheduled 2022-10-27 Screening for [facility] Test 22:40:19 malignant neoplasm of colon (procedure) [code = 053678476] Future Scheduled 2022-10-27 Screening for [facility] Test 22:40:19 malignant neoplasm of colon (procedure) [code = 015909575] Future Scheduled 2022-10-27 Screening for [facility] Test 22:40:19 malignant neoplasm of colon (procedure) [code = 366463336] Future Scheduled 2022-10-27 SHINGLES VACCINES (1 Met [facility] Test 22:40:19 of 2) [code = SHINGLES VACCINES (1 of 2)] Future Scheduled 2022-10-27 BREAST CANCER [facility] Test 22:40:19 SCREENING [code = BREAST CANCER SCREENING] Future Scheduled 2022-10-27 Screening for [facility] Test 22:40:19 malignant neoplasm of colon (procedure) [code = 449796340] Future Scheduled 2022-10-27 Screening for [facility] Test 22:40:19 malignant neoplasm of colon (procedure) [code = 156538617] Future Scheduled 2022-10-27 HEPATITIS B VACCINES Met [facility] Test 22:40:19 (1 of 3 - Risk 3-dose series) [code = HEPATITIS B VACCINES (1 of 3 - Risk 3-dose series)] Future Scheduled 2022-10-27 COVID-19 VACCINE (3 - [facility] Test 22:40:19 Pfizer series) [code = COVID-19 VACCINE (3 - Pfizer series)] Future Scheduled 2022-10-27 65+ P[facility]OCOCCAL [facility] Test 22:40:19 VACCINE (4 - PPSV23 if available, else PCV20) [code = 65+ PNEUMOCOCCAL VACCINE (4 - PPSV23 if available, else PCV20)] Future Scheduled 2022-10-27 INFLUENZA VACCINE Method [facility] Test 22:40:19 [code = INFLUENZA VACCINE] Future Scheduled 2022-09-10 SHINGLES VACCINES (1 Met [facility] Test 15:06:53 of 2) [code = SHINGLES VACCINES (1 of 2)] Future Scheduled 2022-09-10 BREAST CANCER [facility] Test 15:06:53 SCREENING [code = BREAST CANCER SCREENING] Future Scheduled 2022-09-10 COLONOSCOPY SCREENING [facility] Test 15:06:53 [code = COLONOSCOPY SCREENING] Future Scheduled 2022-09-10 HEPATITIS B VACCINES Met [facility] Test 15:06:53 (1 of 3 - Risk 3-dose series) [code = HEPATITIS B VACCINES (1 of 3 - Risk 3-dose series)] Future Scheduled 2022-09-10 COVID-19 VACCINE (3 - [facility] Test 15:06:53 Booster for Pfizer series) [code = COVID-19 VACCINE (3 - Booster for Pfizer series)] Future Scheduled 2022-09-10 65+ PNEUMOCOCCAL [facility] Test 15:06:53 VACCINE (4 - PPSV23 if available, else PCV20) [code = 65+ PNEUMOCOCCAL VACCINE (4 - PPSV23 if available, else PCV20)] Future Scheduled 2022-09-10 INFLUENZA VACCINE Method [facility] Test 15:06:53 [code = INFLUENZA VACCINE] Future Scheduled 2022-09-10 SHINGLES VACCINES (1 Met [facility] Test 15:06:53 of 2) [code = SHINGLES VACCINES (1 of 2)] Future Scheduled 2022-09-10 BREAST CANCER [facility] Test 15:06:53 SCREENING [code = BREAST CANCER SCREENING] Future Scheduled 2022-09-10 COLONOSCOPY SCREENING [facility] Test 15:06:53 [code = COLONOSCOPY SCREENING] Future Scheduled 2022-09-10 HEPATITIS B VACCINES Met [facility] Test 15:06:53 (1 of 3 - Risk 3-dose series) [code = HEPATITIS B VACCINES (1 of 3 - Risk 3-dose series)] Future Scheduled 2022-09-10 COVID-19 VACCINE (3 - [facility] Test 15:06:53 Booster for Pfizer series) [code = COVID-19 VACCINE (3 - Booster for Pfizer series)] Future Scheduled 2022-09-10 65+ PNEUMOCOCCAL [facility] Test 15:06:53 VACCINE (4 - PPSV23 if available, else PCV20) [code = 65+ PNEUMOCOCCAL VACCINE (4 - PPSV23 if available, else PCV20)] Future Scheduled 2022-09-10 INFLUENZA VACCINE Method [facility] Test 15:06:53 [code = INFLUENZA VACCINE] Future Scheduled 2022-09-10 SHINGLES VACCINES (1 Met [facility] Test 15:06:53 of 2) [code = SHINGLES VACCINES (1 of 2)] Future Scheduled 2022-09-10 BREAST CANCER [facility] Test 15:06:53 SCREENING [code = BREAST CANCER SCREENING] Future Scheduled 2022-09-10 COLONOSCOPY SCREENING [facility] Test 15:06:53 [code = COLONOSCOPY SCREENING] Future Scheduled 2022-09-10 HEPATITIS B VACCINES Met [facility] Test 15:06:53 (1 of 3 - Risk 3-dose series) [code = HEPATITIS B VACCINES (1 of 3 - Risk 3-dose series)] Future Scheduled 2022-09-10 COVID-19 VACCINE (3 - [facility] Test 15:06:53 Booster for Pfizer series) [code = COVID-19 VACCINE (3 - Booster for Pfizer series)] Future Scheduled 2022-09-10 65+ P[facility]UMOCOCCAL [facility] Test 15:06:53 VACCINE (4 - PPSV23 if available, else PCV20) [code = 65+ PNEUMOCOCCAL VACCINE (4 - PPSV23 if available, else PCV20)] Future Scheduled 2022-09-10 INFLUENZA VACCINE [facility] Test 15:06:53 [code = INFLUENZA VACCINE] Future Scheduled 2022-09-10 SHINGLES VACCINES (1 Met [facility] Test 15:06:53 of 2) [code = SHINGLES VACCINES (1 of 2)] Future Scheduled 2022-09-10 BREAST CANCER [facility] Test 15:06:53 SCREENING [code = BREAST CANCER SCREENING] Future Scheduled 2022-09-10 COLONOSCOPY SCREENING [facility] Test 15:06:53 [code = COLONOSCOPY SCREENING] Future Scheduled 2022-09-10 HEPATITIS B VACCINES Met [facility] Test 15:06:53 (1 of 3 - Risk 3-dose series) [code = HEPATITIS B VACCINES (1 of 3 - Risk 3-dose series)] Future Scheduled 2022-09-10 COVID-19 VACCINE (3 - [facility] Test 15:06:53 Booster for Pfizer series) [code = COVID-19 VACCINE (3 - Booster for Pfizer series)] Future Scheduled 2022-09-10 65+ P[facility]UMOCOCCAL [facility] Test 15:06:53 VACCINE (4 - PPSV23 if available, else PCV20) [code = 65+ PNEUMOCOCCAL VACCINE (4 - PPSV23 if available, else PCV20)] Future Scheduled 2022-09-10 INFLUENZA VACCINE Method [facility] Test 15:06:53 [code = INFLUENZA VACCINE] Future Scheduled 2022-09-10 SHINGLES VACCINES (1 Met [facility] Test 15:06:53 of 2) [code = SHINGLES VACCINES (1 of 2)] Future Scheduled 2022-09-10 BREAST CANCER [facility] Test 15:06:53 SCREENING [code = BREAST CANCER SCREENING] Future Scheduled 2022-09-10 COLONOSCOPY SCREENING [facility] Test 15:06:53 [code = COLONOSCOPY SCREENING] Future Scheduled 2022-09-10 HEPATITIS B VACCINES Met [facility] Test 15:06:53 (1 of 3 - Risk 3-dose series) [code = HEPATITIS B VACCINES (1 of 3 - Risk 3-dose series)] Future Scheduled 2022-09-10 COVID-19 VACCINE (3 - Me [facility] Test 15:06:53 Booster for Pfizer series) [code = COVID-19 VACCINE (3 - Booster for Pfizer series)] Future Scheduled 2022-09-10 65+ [facility] 15:06:53 VACCINE (4 - PPSV23 if available, else PCV20) [code = 65+ PNEUMOCOCCAL VACCINE (4 - PPSV23 if available, else PCV20)] Future Scheduled 2022-09-10 INFLUENZA VACCINE [facility] Test 15:06:53 [code = INFLUENZA VACCINE] Future Scheduled 2022-09-10 SHINGLES VACCINES (1 Met [facility] Test 15:06:53 of 2) [code = SHINGLES VACCINES (1 of 2)] Future Scheduled 2022-09-10 BREAST CANCER [facility] Test 15:06:53 SCREENING [code = BREAST CANCER SCREENING] Future Scheduled 2022-09-10 COLONOSCOPY SCREENING [facility] Test 15:06:53 [code = COLONOSCOPY SCREENING] Future Scheduled 2022-09-10 HEPATITIS B VACCINES Met [facility] Test 15:06:53 (1 of 3 - Risk 3-dose series) [code = HEPATITIS B VACCINES (1 of 3 - Risk 3-dose series)] Future Scheduled 2022-09-10 COVID-19 VACCINE (3 - [facility] Test 15:06:53 Booster for Pfizer series) [code = COVID-19 VACCINE (3 - Booster for Pfizer series)] Future Scheduled 2022-09-10 65+ PNEUMOCOCCAL [facility] Test 15:06:53 VACCINE (4 - PPSV23 if available, else PCV20) [code = 65+ PNEUMOCOCCAL VACCINE (4 - PPSV23 if available, else PCV20)] Future Scheduled 2022-09-10 INFLUENZA VACCINE [facility] Test 15:06:53 [code = INFLUENZA VACCINE] Future Scheduled 2022-09-10 SHINGLES VACCINES (1 Met [facility] Test 15:06:53 of 2) [code = SHINGLES VACCINES (1 of 2)] Future Scheduled 2022-09-10 BREAST CANCER [facility] Test 15:06:53 SCREENING [code = BREAST CANCER SCREENING] Future Scheduled 2022-09-10 COLONOSCOPY SCREENING [facility] Test 15:06:53 [code = COLONOSCOPY SCREENING] Future Scheduled 2022-09-10 HEPATITIS B VACCINES Met [facility] Test 15:06:53 (1 of 3 - Risk 3-dose series) [code = HEPATITIS B VACCINES (1 of 3 - Risk 3-dose series)] Future Scheduled 2022-09-10 COVID-19 VACCINE (3 - [facility] Test 15:06:53 Booster for Pfizer series) [code = COVID-19 VACCINE (3 - Booster for Pfizer series)] Future Scheduled 2022-09-10 65+ P[facility]UMOCOCCAL [facility] Test 15:06:53 VACCINE (4 - PPSV23 if available, else PCV20) [code = 65+ PNEUMOCOCCAL VACCINE (4 - PPSV23 if available, else PCV20)] Future Scheduled 2022-09-10 INFLUENZA VACCINE [facility] Test 15:06:53 [code = INFLUENZA VACCINE] Future Scheduled 2022-09-10 SHINGLES VACCINES (1 Met [facility] Test 15:06:53 of 2) [code = SHINGLES VACCINES (1 of 2)] Future Scheduled 2022-09-10 BREAST CANCER [facility] Test 15:06:53 SCREENING [code = BREAST CANCER SCREENING] Future Scheduled 2022-09-10 COLONOSCOPY SCREENING [facility] Test 15:06:53 [code = COLONOSCOPY SCREENING] Future Scheduled 2022-09-10 HEPATITIS B VACCINES Met [facility] Test 15:06:53 (1 of 3 - Risk 3-dose series) [code = HEPATITIS B VACCINES (1 of 3 - Risk 3-dose series)] Future Scheduled 2022-09-10 COVID-19 VACCINE (3 - [facility] Test 15:06:53 Booster for Pfizer series) [code = COVID-19 VACCINE (3 - Booster for Pfizer series)] Future Scheduled 2022-09-10 65+ [facility]CCAL [facility] Test 15:06:53 VACCINE (4 - PPSV23 if available, else PCV20) [code = 65+ PNEUMOCOCCAL VACCINE (4 - PPSV23 if available, else PCV20)] Future Scheduled 2022-09-10 INFLUENZA VACCINE Method [facility] Test 15:06:53 [code = INFLUENZA VACCINE] Future Scheduled 2022-08-26 SHINGLES VACCINES (1 Met [facility] Test 14:43:48 of 2) [code = SHINGLES VACCINES (1 of 2)] Future Scheduled 2022-08-26 BREAST CANCER [facility] Test 14:43:48 SCREENING [code = BREAST CANCER SCREENING] Future Scheduled 2022-08-26 COLONOSCOPY SCREENING [facility] Test 14:43:48 [code = COLONOSCOPY SCREENING] Future Scheduled 2022-08-26 HEPATITIS B VACCINES Met [facility] Test 14:43:48 (1 of 3 - Risk 3-dose series) [code = HEPATITIS B VACCINES (1 of 3 - Risk 3-dose series)] Future Scheduled 2022-08-26 COVID-19 VACCINE (3 - [facility] Test 14:43:48 Booster for Pfizer series) [code = COVID-19 VACCINE (3 - Booster for Pfizer series)] Future Scheduled 2022-08-26 65+ PNEUMOCOCCAL [facility] Test 14:43:48 VACCINE (4 - PPSV23 if available, else PCV20) [code = 65+ PNEUMOCOCCAL VACCINE (4 - PPSV23 if available, else PCV20)] Future Scheduled 2022-08-26 INFLUENZA VACCINE Method [facility] Test 14:43:48 [code = INFLUENZA VACCINE] Future Scheduled 2022-08-07 SHINGLES VACCINES (1 Met [facility] Test 23:30:11 of 2) [code = SHINGLES VACCINES (1 of 2)] Future Scheduled 2022-08-07 BREAST CANCER [facility] Test 23:30:11 SCREENING [code = BREAST CANCER SCREENING] Future Scheduled 2022-08-07 COLONOSCOPY SCREENING [facility] Test 23:30:11 [code = COLONOSCOPY SCREENING] Future Scheduled 2022-08-07 HEPATITIS B VACCINES Met [facility] Test 23:30:11 (1 of 3 - Risk 3-dose series) [code = HEPATITIS B VACCINES (1 of 3 - Risk 3-dose series)] Future Scheduled 2022-08-07 COVID-19 VACCINE (3 - [facility] Test 23:30:11 Booster for Pfizer series) [code = COVID-19 VACCINE (3 - Booster for Pfizer series)] Future Scheduled 2022-08-07 65+ PNEUMOCOCCAL [facility] Test 23:30:11 VACCINE (4 - PPSV23 if available, else PCV20) [code = 65+ PNEUMOCOCCAL VACCINE (4 - PPSV23 if available, else PCV20)] Future Scheduled 2022-08-07 INFLUENZA VACCINE [facility] Test 23:30:11 [code = INFLUENZA VACCINE] Future Scheduled 2022-08-07 SHINGLES VACCINES (1 Met [facility] Test 23:30:11 of 2) [code = SHINGLES VACCINES (1 of 2)] Future Scheduled 2022-08-07 BREAST CANCER [facility] Test 23:30:11 SCREENING [code = BREAST CANCER SCREENING] Future Scheduled 2022-08-07 COLONOSCOPY SCREENING [facility] Test 23:30:11 [code = COLONOSCOPY SCREENING] Future Scheduled 2022-08-07 HEPATITIS B VACCINES Met [facility] Test 23:30:11 (1 of 3 - Risk 3-dose series) [code = HEPATITIS B VACCINES (1 of 3 - Risk 3-dose series)] Future Scheduled 2022-08-07 COVID-19 VACCINE (3 - [facility] Test 23:30:11 Booster for Pfizer series) [code = COVID-19 VACCINE (3 - Booster for Pfizer series)] Future Scheduled 2022-08-07 65+ PNEUMOCOCCAL [facility] Test 23:30:11 VACCINE (4 - PPSV23 if available, else PCV20) [code = 65+ PNEUMOCOCCAL VACCINE (4 - PPSV23 if available, else PCV20)] Future Scheduled 2022-08-07 INFLUENZA VACCINE [facility] Test 23:30:11 [code = INFLUENZA VACCINE] Future Scheduled 2022-08-06 SHINGLES VACCINES (1 Met [facility] Test 15:48:02 of 2) [code = SHINGLES VACCINES (1 of 2)] Future Scheduled 2022-08-06 BREAST CANCER [facility] Test 15:48:02 SCREENING [code = BREAST CANCER SCREENING] Future Scheduled 2022-08-06 COLONOSCOPY SCREENING [facility] Test 15:48:02 [code = COLONOSCOPY SCREENING] Future Scheduled 2022-08-06 HEPATITIS B VACCINES Met [facility] Test 15:48:02 (1 of 3 - Risk 3-dose series) [code = HEPATITIS B VACCINES (1 of 3 - Risk 3-dose series)] Future Scheduled 2022-08-06 COVID-19 VACCINE (3 - [facility] Test 15:48:02 Booster for Pfizer series) [code = COVID-19 VACCINE (3 - Booster for Pfizer series)] Future Scheduled 2022-08-06 65+ PNEUMOCOCCAL [facility] Test 15:48:02 VACCINE (4 - PPSV23 if available, else PCV20) [code = 65+ PNEUMOCOCCAL VACCINE (4 - PPSV23 if available, else PCV20)] Future Scheduled 2022-08-06 INFLUENZA VACCINE Method [facility] Test 15:48:02 [code = INFLUENZA VACCINE] Future Scheduled 2022-06-11 SHINGLES VACCINES (1 Met [facility] Test 16:10:12 of 2) [code = SHINGLES VACCINES (1 of 2)] Future Scheduled 2022-06-11 BREAST CANCER [facility] Test 16:10:12 SCREENING [code = BREAST CANCER SCREENING] Future Scheduled 2022-06-11 COLONOSCOPY SCREENING [facility] Test 16:10:12 [code = COLONOSCOPY SCREENING] Future Scheduled 2022-06-11 HEPATITIS B VACCINES Met [facility] Test 16:10:12 (1 of 3 - Risk 3-dose series) [code = HEPATITIS B VACCINES (1 of 3 - Risk 3-dose series)] Future Scheduled 2022-06-11 COVID-19 VACCINE (3 - [facility] Test 16:10:12 Booster for Pfizer series) [code = COVID-19 VACCINE (3 - Booster for Pfizer series)] Future Scheduled 2022-06-11 65+ [facility]OCOCCAL [facility] Test 16:10:12 VACCINE (4 - PPSV23 if available, else PCV20) [code = 65+ PNEUMOCOCCAL VACCINE (4 - PPSV23 if available, else PCV20)] Future Scheduled 2022-06-11 INFLUENZA VACCINE [facility] Test 16:10:12 [code = INFLUENZA VACCINE] Future Scheduled 2022-06-11 SHINGLES VACCINES (1 Met [facility] Test 16:10:12 of 2) [code = SHINGLES VACCINES (1 of 2)] Future Scheduled 2022-06-11 BREAST CANCER [facility] Test 16:10:12 SCREENING [code = BREAST CANCER SCREENING] Future Scheduled 2022-06-11 COLONOSCOPY SCREENING [facility] Test 16:10:12 [code = COLONOSCOPY SCREENING] Future Scheduled 2022-06-11 HEPATITIS B VACCINES Met [facility] Test 16:10:12 (1 of 3 - Risk 3-dose series) [code = HEPATITIS B VACCINES (1 of 3 - Risk 3-dose series)] Future Scheduled 2022-06-11 COVID-19 VACCINE (3 - [facility] Test 16:10:12 Booster for Pfizer series) [code = COVID-19 VACCINE (3 - Booster for Pfizer series)] Future Scheduled 2022-06-11 65+ [facility]OCOCCAL [facility] Test 16:10:12 VACCINE (4 - PPSV23 if available, else PCV20) [code = 65+ PNEUMOCOCCAL VACCINE (4 - PPSV23 if available, else PCV20)] Future Scheduled 2022-06-11 INFLUENZA VACCINE [facility] Test 16:10:12 [code = INFLUENZA VACCINE] Future Scheduled 2022-06-11 SHINGLES VACCINES (1 Met [facility] Test 16:10:12 of 2) [code = SHINGLES VACCINES (1 of 2)] Future Scheduled 2022-06-11 BREAST CANCER [facility] Test 16:10:12 SCREENING [code = BREAST CANCER SCREENING] Future Scheduled 2022-06-11 COLONOSCOPY SCREENING [facility] Test 16:10:12 [code = COLONOSCOPY SCREENING] Future Scheduled 2022-06-11 HEPATITIS B VACCINES Met [facility] Test 16:10:12 (1 of 3 - Risk 3-dose series) [code = HEPATITIS B VACCINES (1 of 3 - Risk 3-dose series)] Future Scheduled 2022-06-11 COVID-19 VACCINE (3 - [facility] Test 16:10:12 Booster for Pfizer series) [code = COVID-19 VACCINE (3 - Booster for Pfizer series)] Future Scheduled 2022-06-11 65+ P[facility]OCOCCAL [facility] Test 16:10:12 VACCINE (4 - PPSV23 if available, else PCV20) [code = 65+ PNEUMOCOCCAL VACCINE (4 - PPSV23 if available, else PCV20)] Future Scheduled 2022-06-11 INFLUENZA VACCINE [facility] Test 16:10:12 [code = INFLUENZA VACCINE] Future Scheduled 2022-06-11 SHINGLES VACCINES (1 Met [facility] Test 16:10:12 of 2) [code = SHINGLES VACCINES (1 of 2)] Future Scheduled 2022-06-11 BREAST CANCER [facility] Test 16:10:12 SCREENING [code = BREAST CANCER SCREENING] Future Scheduled 2022-06-11 COLONOSCOPY SCREENING [facility] Test 16:10:12 [code = COLONOSCOPY SCREENING] Future Scheduled 2022-06-11 HEPATITIS B VACCINES Met [facility] Test 16:10:12 (1 of 3 - [...] PCV20)] Future Scheduled 2022-06-11 INFLUENZA VACCINE [facility] Test 16:10:12 [code = INFLUENZA VACCINE] Future Scheduled 2022-06-11 SHINGLES VACCINES (1 Met [facility] Test 16:10:12 of 2) [code = SHINGLES VACCINES (1 of 2)] Future Scheduled 2022-06-11 BREAST CANCER [facility] Test 16:10:12 SCREENING [code = BREAST CANCER SCREENING] Future Scheduled 2022-06-11 COLONOSCOPY SCREENING [facility] Test 16:10:12 [code = COLONOSCOPY SCREENING] Future Scheduled 2022-06-11 HEPATITIS B VACCINES Met [facility] Test 16:10:12 (1 of 3 - Risk 3-dose series) [code = HEPATITIS B VACCINES (1 of 3 - Risk 3-dose series)] Future Scheduled 2022-06-11 COVID-19 VACCINE (3 - [facility] Test 16:10:12 Booster for Pfizer series) [code = COVID-19 VACCINE (3 - Booster for Pfizer series)] Future Scheduled 2022-06-11 65+ P[facility]UMOCOCCAL [facility] Test 16:10:12 VACCINE (4 - PPSV23 if available, else PCV20) [code = 65+ PNEUMOCOCCAL VACCINE (4 - PPSV23 if available, else PCV20)] Future Scheduled 2022-06-11 INFLUENZA VACCINE [facility] Test 16:10:12 [code = INFLUENZA VACCINE] Future Scheduled 2022-06-11 SHINGLES VACCINES (1 Met [facility] Test 16:10:12 of 2) [code = SHINGLES VACCINES (1 of 2)] Future Scheduled 2022-06-11 BREAST CANCER [facility] Test 16:10:12 SCREENING [code = BREAST CANCER SCREENING] Future Scheduled 2022-06-11 COLONOSCOPY SCREENING [facility] Test 16:10:12 [code = COLONOSCOPY SCREENING] Future Scheduled 2022-06-11 HEPATITIS B VACCINES Met [facility] Test 16:10:12 (1 of 3 - Risk 3-dose series) [code = HEPATITIS B VACCINES (1 of 3 - Risk 3-dose series)] Future Scheduled 2022-06-11 COVID-19 VACCINE (3 - [facility] Test 16:10:12 Booster for Pfizer series) [code = COVID-19 VACCINE (3 - Booster for Pfizer series)] Future Scheduled 2022-06-11 65+ P[facility]OCOCCAL [facility] Test 16:10:12 VACCINE (4 - PPSV23 if available, else PCV20) [code = 65+ PNEUMOCOCCAL VACCINE (4 - PPSV23 if available, else PCV20)] Future Scheduled 2022-06-11 INFLUENZA VACCINE Method [facility] Test 16:10:12 [code = INFLUENZA VACCINE] Future Scheduled 2022-06-11 SHINGLES VACCINES (1 Met [facility] Test 16:10:12 of 2) [code = SHINGLES VACCINES (1 of 2)] Future Scheduled 2022-06-11 BREAST CANCER [facility] Test 16:10:12 SCREENING [code = BREAST CANCER SCREENING] Future Scheduled 2022-06-11 COLONOSCOPY SCREENING [facility] Test 16:10:12 [code = COLONOSCOPY SCREENING] Future Scheduled 2022-06-11 HEPATITIS B VACCINES Met [facility] Test 16:10:12 (1 of 3 - Risk 3-dose series) [code = HEPATITIS B VACCINES (1 of 3 - Risk 3-dose series)] Future Scheduled 2022-06-11 COVID-19 VACCINE (3 - [facility] Test 16:10:12 Booster for Pfizer series) [code = COVID-19 VACCINE (3 - Booster for Pfizer series)] Future Scheduled 2022-06-11 65+ PNEUMOCOCCAL [facility] Test 16:10:12 VACCINE (4 - PPSV23 if available, else PCV20) [code = 65+ PNEUMOCOCCAL VACCINE (4 - PPSV23 if available, else PCV20)] Future Scheduled 2022-06-11 INFLUENZA VACCINE Method [facility] Test 16:10:12 [code = INFLUENZA VACCINE] Future Scheduled 2022-06-11 SHINGLES VACCINES (1 Met [facility] Test 16:10:12 of 2) [code = SHINGLES VACCINES (1 of 2)] Future Scheduled 2022-06-11 BREAST CANCER [facility] Test 16:10:12 SCREENING [code = BREAST CANCER SCREENING] Future Scheduled 2022-06-11 COLONOSCOPY SCREENING [facility] Test 16:10:12 [code = COLONOSCOPY SCREENING] Future Scheduled 2022-06-11 HEPATITIS B VACCINES Met [facility] Test 16:10:12 (1 of 3 - Risk 3-dose series) [code = HEPATITIS B VACCINES (1 of 3 - Risk 3-dose series)] Future Scheduled 2022-06-11 COVID-19 VACCINE (3 - [facility] Test 16:10:12 Booster for Pfizer series) [code = COVID-19 VACCINE (3 - Booster for Pfizer series)] Future Scheduled 2022-06-11 65+ P[facility]UMOCOCCAL [facility] Test 16:10:12 VACCINE (4 - PPSV23 if available, else PCV20) [code = 65+ PNEUMOCOCCAL VACCINE (4 - PPSV23 if available, else PCV20)] Future Scheduled 2022-06-11 INFLUENZA VACCINE [facility] Test 16:10:12 [code = INFLUENZA VACCINE] Future Scheduled 2022-06-11 SHINGLES VACCINES (1 Met [facility] Test 16:10:12 of 2) [code = SHINGLES VACCINES (1 of 2)] Future Scheduled 2022-06-11 BREAST CANCER [facility] Test 16:10:12 SCREENING [code = BREAST CANCER SCREENING] Future Scheduled 2022-06-11 COLONOSCOPY SCREENING [facility] Test 16:10:12 [code = COLONOSCOPY SCREENING] Future Scheduled 2022-06-11 HEPATITIS B VACCINES Met [facility] Test 16:10:12 (1 of 3 - Risk 3-dose series) [code = HEPATITIS B VACCINES (1 of 3 - Risk 3-dose series)] Future Scheduled 2022-06-11 COVID-19 VACCINE (3 - [facility] Test 16:10:12 Booster for Pfizer series) [code = COVID-19 VACCINE (3 - Booster for Pfizer series)] Future Scheduled 2022-06-11 65+ P[facility]OCOCCAL [facility] Test 16:10:12 VACCINE (4 - PPSV23 if available, else PCV20) [code = 65+ PNEUMOCOCCAL VACCINE (4 - PPSV23 if available, else PCV20)] Future Scheduled 2022-06-11 INFLUENZA VACCINE [facility] Test 16:10:12 [code = INFLUENZA VACCINE] Future Scheduled 2022-05-10 SHINGLES VACCINES (1 Met [facility] Test 10:21:35 of 2) [code = SHINGLES VACCINES (1 of 2)] Future Scheduled 2022-05-10 BREAST CANCER [facility] Test 10:21:35 SCREENING [code = BREAST CANCER SCREENING] Future Scheduled 2022-05-10 COLONOSCOPY SCREENING [facility] Test 10:21:35 [code = COLONOSCOPY SCREENING] Future Scheduled 2022-05-10 HEPATITIS B VACCINES Met [facility] Test 10:21:35 (1 of 3 - Risk 3-dose series) [code = HEPATITIS B VACCINES (1 of 3 - Risk 3-dose series)] Future Scheduled 2022-05-10 COVID-19 VACCINE (3 - [facility] Test 10:21:35 Booster for Pfizer series) [code = COVID-19 VACCINE (3 - Booster for Pfizer series)] Future Scheduled 2022-05-10 65+ P[facility]UMOCOCCAL [facility] Test 10:21:35 VACCINE (4 - PPSV23 if available, else PCV20) [code = 65+ PNEUMOCOCCAL VACCINE (4 - PPSV23 if available, else PCV20)] Future Scheduled 2022-05-10 INFLUENZA VACCINE [facility] Test 10:21:35 [code = INFLUENZA VACCINE] Future Scheduled 2022-05-10 SHINGLES VACCINES (1 Met [facility] Test 10:21:35 of 2) [code = SHINGLES VACCINES (1 of 2)] Future Scheduled 2022-05-10 BREAST CANCER [facility] Test 10:21:35 SCREENING [code = BREAST CANCER SCREENING] Future Scheduled 2022-05-10 COLONOSCOPY SCREENING [facility] Test 10:21:35 [code = COLONOSCOPY SCREENING] Future Scheduled 2022-05-10 HEPATITIS B VACCINES Met [facility] Test 10:21:35 (1 of 3 - Risk 3-dose series) [code = HEPATITIS B VACCINES (1 of 3 - Risk 3-dose series)] Future Scheduled 2022-05-10 COVID-19 VACCINE (3 - [facility] Test 10:21:35 Booster for Pfizer series) [code = COVID-19 VACCINE (3 - Booster for Pfizer series)] Future Scheduled 2022-05-10 65+ P[facility]UMOCOCCAL [facility] Test 10:21:35 VACCINE (4 - PPSV23 if available, else PCV20) [code = 65+ PNEUMOCOCCAL VACCINE (4 - PPSV23 if available, else PCV20)] Future Scheduled 2022-05-10 INFLUENZA VACCINE [facility] Test 10:21:35 [code = INFLUENZA VACCINE] Future Scheduled 2022-05-06 SHINGLES VACCINES (1 Met [facility] Test 14:03:13 of 2) [code = SHINGLES VACCINES (1 of 2)] Future Scheduled 2022-05-06 BREAST CANCER [facility] Test 14:03:13 SCREENING [code = BREAST CANCER SCREENING] Future Scheduled 2022-05-06 COLONOSCOPY SCREENING [facility] Test 14:03:13 [code = COLONOSCOPY SCREENING] Future Scheduled 2022-05-06 HEPATITIS B VACCINES Met [facility] Test 14:03:13 (1 of 3 - Risk 3-dose series) [code = HEPATITIS B VACCINES (1 of 3 - Risk 3-dose series)] Future Scheduled 2022-05-06 COVID-19 VACCINE (3 - [facility] Test 14:03:13 Booster for Pfizer series) [code = COVID-19 VACCINE (3 - Booster for Pfizer series)] Future Scheduled 2022-05-06 65+ P[facility]UMOCOCCAL [facility] Test 14:03:13 VACCINE (4 - PPSV23 if available, else PCV20) [code = 65+ PNEUMOCOCCAL VACCINE (4 - PPSV23 if available, else PCV20)] Future Scheduled 2022-05-06 INFLUENZA VACCINE [facility] Test 14:03:13 [code = INFLUENZA VACCINE] Future Scheduled 2022-04-30 SHINGLES VACCINES (1 Met [facility] Test 01:07:32 of 2) [code = SHINGLES VACCINES (1 of 2)] Future Scheduled 2022-04-30 BREAST CANCER [facility] Test 01:07:32 SCREENING [code = BREAST CANCER SCREENING] Future Scheduled 2022-04-30 COLONOSCOPY SCREENING [facility] Test 01:07:32 [code = COLONOSCOPY SCREENING] Future Scheduled 2022-04-30 HEPATITIS B VACCINES Met [facility] Test 01:07:32 (1 of 3 - Risk 3-dose series) [code = HEPATITIS B VACCINES (1 of 3 - Risk 3-dose series)] Future Scheduled 2022-04-30 COVID-19 VACCINE (3 - [facility] Test 01:07:32 Booster for Pfizer series) [code = COVID-19 VACCINE (3 - Booster for Pfizer series)] Future Scheduled 2022-04-30 65[facility] 01:07:32 VACCINE (4 - PPSV23 if available, else PCV20) [code = 65+ PNEUMOCOCCAL VACCINE (4 - PPSV23 if available, else PCV20)] Future Scheduled 2022-04-30 INFLUENZA VACCINE [facility] Test 01:07:32 [code = INFLUENZA VACCINE] Future Scheduled 2022-04-30 SHINGLES VACCINES (1 Met [facility] Test 01:07:32 of 2) [code = SHINGLES VACCINES (1 of 2)] Future Scheduled 2022-04-30 BREAST CANCER [facility] Test 01:07:32 SCREENING [code = BREAST CANCER SCREENING] Future Scheduled 2022-04-30 COLONOSCOPY SCREENING [facility] Test 01:07:32 [code = COLONOSCOPY SCREENING] Future Scheduled 2022-04-30 HEPATITIS B VACCINES Met [facility] Test 01:07:32 (1 of 3 - Risk 3-dose series) [code = HEPATITIS B VACCINES (1 of 3 - Risk 3-dose series)] Future Scheduled 2022-04-30 COVID-19 VACCINE (3 - [facility] Test 01:07:32 Booster for Pfizer series) [code = COVID-19 VACCINE (3 - Booster for Pfizer series)] Future Scheduled 2022-04-30 65+ PNEUMOCOCCAL [facility] Test 01:07:32 VACCINE (4 - PPSV23 if available, else PCV20) [code = 65+ PNEUMOCOCCAL VACCINE (4 - PPSV23 if available, else PCV20)] Future Scheduled 2022-04-30 INFLUENZA VACCINE [facility] Test 01:07:32 [code = INFLUENZA VACCINE] Future Scheduled 2022-04-30 SHINGLES VACCINES (1 Met [facility] Test 01:07:32 of 2) [code = SHINGLES VACCINES (1 of 2)] Future Scheduled 2022-04-30 BREAST CANCER [facility] Test 01:07:32 SCREENING [code = BREAST CANCER SCREENING] Future Scheduled 2022-04-30 COLONOSCOPY SCREENING [facility] Test 01:07:32 [code = COLONOSCOPY SCREENING] Future Scheduled 2022-04-30 HEPATITIS B VACCINES Met [facility] Test 01:07:32 (1 of 3 - Risk 3-dose series) [code = HEPATITIS B VACCINES (1 of 3 - Risk 3-dose series)] Future Scheduled 2022-04-30 COVID-19 VACCINE (3 - [facility] Test 01:07:32 Booster for Pfizer series) [code = COVID-19 VACCINE (3 - Booster for Pfizer series)] Future Scheduled 2022-04-30 65+ P[facility]OCOCCAL [facility] Test 01:07:32 VACCINE (4 - PPSV23 if available, else PCV20) [code = 65+ PNEUMOCOCCAL VACCINE (4 - PPSV23 if available, else PCV20)] Future Scheduled 2022-04-30 INFLUENZA VACCINE [facility] Test 01:07:32 [code = INFLUENZA VACCINE] Future Scheduled 2022-04-25 SHINGLES VACCINES (1 [facility] [place] Test 01:45:02 of 2) [code = SHINGLES VACCINES (1 of 2)] Future Scheduled 2022-04-25 BREAST CANCER [facility] Test 01:45:02 SCREENING [code = BREAST CANCER SCREENING] Future Scheduled 2022-04-25 COLONOSCOPY SCREENING [facility] Test 01:45:02 [code = COLONOSCOPY SCREENING] Future Scheduled 2022-04-25 HEPATITIS B VACCINES Met [facility] [place] Test 01:45:02 (1 of 3 - Risk 3-dose series) [code = HEPATITIS B VACCINES (1 of 3 - Risk 3-dose series)] Future Scheduled 2022-04-25 COVID-19 VACCINE (3 - [facility] Test 01:45:02 Booster for Pfizer series) [code = COVID-19 VACCINE (3 - Booster for Pfizer series)] Future Scheduled 2022-04-25 65+ [facility]AL [facility] Test 01:45:02 VACCINE (4 - PPSV23 if available, else PCV20) [code = 65+ PNEUMOCOCCAL VACCINE (4 - PPSV23 if available, else PCV20)] Future Scheduled 2022-04-25 INFLUENZA VACCINE Method [facility] Test 01:45:02 [code = INFLUENZA VACCINE] Future Scheduled 2022-03-25 SHINGLES VACCINES (1 Met [facility] [place] Test 14:48:42 of 2) [code = SHINGLES VACCINES (1 of 2)] Future Scheduled 2022-03-25 BREAST CANCER [facility] Test 14:48:42 SCREENING [code = BREAST CANCER SCREENING] Future Scheduled 2022-03-25 COLONOSCOPY SCREENING [facility] Test 14:48:42 [code = COLONOSCOPY SCREENING] Future Scheduled 2022-03-25 HEPATITIS B VACCINES Met [facility] [place] Test 14:48:42 (1 of 3 - Risk 3-dose series) [code = HEPATITIS B VACCINES (1 of 3 - Risk 3-dose series)] Future Scheduled 2022-03-25 COVID-19 VACCINE (3 - [facility] Test 14:48:42 Booster for Pfizer series) [code = COVID-19 VACCINE (3 - Booster for Pfizer series)] Future Scheduled 2022-03-25 65+ PNEUMOCOCCAL [facility] Test 14:48:42 VACCINE (4 - PPSV23 if available, else PCV20) [code = 65+ PNEUMOCOCCAL VACCINE (4 - PPSV23 if available, else PCV20)] Future Scheduled 2022-03-25 INFLUENZA VACCINE Method [facility] Test 14:48:42 [code = INFLUENZA VACCINE] Future Scheduled 2022-03-25 SHINGLES VACCINES (1 Met [facility] [place] Test 14:48:42 of 2) [code = SHINGLES VACCINES (1 of 2)] Future Scheduled 2022-03-25 BREAST CANCER [facility] Test 14:48:42 SCREENING [code = BREAST CANCER SCREENING] Future Scheduled 2022-03-25 COLONOSCOPY SCREENING [facility] Test 14:48:42 [code = COLONOSCOPY SCREENING] Future Scheduled 2022-03-25 HEPATITIS B VACCINES Met [facility] [place] Test 14:48:42 (1 of 3 - Risk 3-dose series) [code = HEPATITIS B VACCINES (1 of 3 - Risk 3-dose series)] Future Scheduled 2022-03-25 COVID-19 VACCINE (3 - [facility] Test 14:48:42 Booster for Pfizer series) [code = COVID-19 VACCINE (3 - Booster for Pfizer series)] Future Scheduled 2022-03-25 65+ PNEUMOCOCCAL [facility] Test 14:48:42 VACCINE (4 - PPSV23 if available, else PCV20) [code = 65+ PNEUMOCOCCAL VACCINE (4 - PPSV23 if available, else PCV20)] Future Scheduled 2022-03-25 INFLUENZA VACCINE Method [facility] Test 14:48:42 [code = INFLUENZA VACCINE] Future Scheduled 2022-03-25 SHINGLES VACCINES (1 Met [facility] [place] Test 14:48:42 of 2) [code = SHINGLES VACCINES (1 of 2)] Future Scheduled 2022-03-25 BREAST CANCER [facility] Test 14:48:42 SCREENING [code = BREAST CANCER SCREENING] Future Scheduled 2022-03-25 COLONOSCOPY SCREENING [facility] Test 14:48:42 [code = COLONOSCOPY SCREENING] Future Scheduled 2022-03-25 HEPATITIS B VACCINES Met [facility] [place] Test 14:48:42 (1 of 3 - Risk 3-dose series) [code = HEPATITIS B VACCINES (1 of 3 - Risk 3-dose series)] Future Scheduled 2022-03-25 COVID-19 VACCINE (3 - [facility] Test 14:48:42 Booster for Pfizer series) [code = COVID-19 VACCINE (3 - Booster for Pfizer series)] Future Scheduled 2022-03-25 65+ [facility] Test 14:48:42 VACCINE (4 - PPSV23 if available, else PCV20) [code = 65+ PNEUMOCOCCAL VACCINE (4 - PPSV23 if available, else PCV20)] Future Scheduled 2022-03-25 INFLUENZA VACCINE [facility] Test 14:48:42 [code = INFLUENZA VACCINE] Future Scheduled 2022-03-25 SHINGLES VACCINES (1 Met [facility] [place] Test 14:48:42 of 2) [code = SHINGLES VACCINES (1 of 2)] Future Scheduled 2022-03-25 BREAST CANCER [facility] Test 14:48:42 SCREENING [code = BREAST CANCER SCREENING] Future Scheduled 2022-03-25 COLONOSCOPY SCREENING [facility] Test 14:48:42 [code = COLONOSCOPY SCREENING] Future Scheduled 2022-03-25 HEPATITIS B VACCINES Met [facility] [place] Test 14:48:42 (1 of 3 - Risk 3-dose series) [code = HEPATITIS B VACCINES (1 of 3 - Risk 3-dose series)] Future Scheduled 2022-03-25 COVID-19 VACCINE (3 - [facility] Test 14:48:42 Booster for Pfizer series) [code = COVID-19 VACCINE (3 - Booster for Pfizer series)] Future Scheduled 2022-03-25 65+ [facility] Test 14:48:42 VACCINE (4 - PPSV23 if available, else PCV20) [code = 65+ PNEUMOCOCCAL VACCINE (4 - PPSV23 if available, else PCV20)] Future Scheduled 2022-03-25 INFLUENZA VACCINE [facility] Test 14:48:42 [code = INFLUENZA VACCINE] Future Scheduled 2022-03-25 SHINGLES VACCINES (1 Met [facility] [place] Test 14:48:42 of 2) [code = SHINGLES VACCINES (1 of 2)] Future Scheduled 2022-03-25 BREAST CANCER [facility] Test 14:48:42 SCREENING [code = BREAST CANCER SCREENING] Future Scheduled 2022-03-25 [facility]ONOSCOPY SCREENING [facility] Test 14:48:42 [code = COLONOSCOPY SCREENING] Future Scheduled 2022-03-25 HEPATITIS B VACCINES Met [facility] [place] Test 14:48:42 (1 of 3 - [...] PCV20)] Future Scheduled 2022-03-25 INFLUENZA VACCINE [facility] Test 14:48:42 [code = INFLUENZA VACCINE] Future Scheduled 2022-03-25 SHINGLES VACCINES (1 Met [facility] [place] Test 14:48:42 of 2) [code = SHINGLES VACCINES (1 of 2)] Future Scheduled 2022-03-25 BREAST CANCER [facility] Test 14:48:42 SCREENING [code = BREAST CANCER SCREENING] Future Scheduled 2022-03-25 COLONOSCOPY SCREENING [facility] Test 14:48:42 [code = COLONOSCOPY SCREENING] Future Scheduled 2022-03-25 HEPATITIS B VACCINES Met [facility] [place] Test 14:48:42 (1 of 3 - [...] PCV20)] Future Scheduled 2022-03-25 INFLUENZA VACCINE [facility] Test 14:48:42 [code = INFLUENZA VACCINE] Future Scheduled 2022-03-25 SHINGLES VACCINES (1 Met [facility] [place] Test 14:48:42 of 2) [code = SHINGLES VACCINES (1 of 2)] Future Scheduled 2022-03-25 BREAST CANCER [facility] Test 14:48:42 SCREENING [code = BREAST CANCER SCREENING] Future Scheduled 2022-03-25 COLONOSCOPY SCREENING [facility] Test 14:48:42 [code = COLONOSCOPY SCREENING] Future Scheduled 2022-03-25 HEPATITIS B VACCINES Met [facility] [place] Test 14:48:42 (1 of 3 - Risk 3-dose series) [code = HEPATITIS B VACCINES (1 of 3 - Risk 3-dose series)] Future Scheduled 2022-03-25 COVID-19 VACCINE (3 - [facility] Test 14:48:42 Booster for Pfizer series) [code = COVID-19 VACCINE (3 - Booster for Pfizer series)] Future Scheduled 2022-03-25 65+ [facility]AL [facility] Test 14:48:42 VACCINE (4 - PPSV23 if available, else PCV20) [code = 65+ PNEUMOCOCCAL VACCINE (4 - PPSV23 if available, else PCV20)] Future Scheduled 2022-03-25 INFLUENZA VACCINE [facility] Test 14:48:42 [code = INFLUENZA VACCINE] Future Scheduled 2022-03-25 SHINGLES VACCINES (1 Met [facility] [place] Test 14:48:42 of 2) [code = SHINGLES VACCINES (1 of 2)] Future Scheduled 2022-03-25 BREAST CANCER [facility] Test 14:48:42 SCREENING [code = BREAST CANCER SCREENING] Future Scheduled 2022-03-25 COLONOSCOPY SCREENING [facility] Test 14:48:42 [code = COLONOSCOPY SCREENING] Future Scheduled 2022-03-25 HEPATITIS B VACCINES Met [facility] [place] Test 14:48:42 (1 of 3 - [...] PCV20)] Future Scheduled 2022-03-25 INFLUENZA VACCINE [facility] Test 14:48:42 [code = INFLUENZA VACCINE] Future Scheduled 2022-03-25 SHINGLES VACCINES (1 Met [facility] [place] Test 14:48:42 of 2) [code = SHINGLES VACCINES (1 of 2)] Future Scheduled 2022-03-25 BREAST CANCER [facility] Test 14:48:42 SCREENING [code = BREAST CANCER SCREENING] Future Scheduled 2022-03-25 COLONOSCOPY SCREENING [facility] Test 14:48:42 [code = COLONOSCOPY SCREENING] Future Scheduled 2022-03-25 HEPATITIS B VACCINES Met [facility] [place] Test 14:48:42 (1 of 3 - Risk 3-dose series) [code = HEPATITIS B VACCINES (1 of 3 - Risk 3-dose series)] Future Scheduled 2022-03-25 COVID-19 VACCINE (3 - [facility] Test 14:48:42 Booster for Pfizer series) [code = COVID-19 VACCINE (3 - Booster for Pfizer series)] Future Scheduled 2022-03-25 65+ [facility]AL [facility] Test 14:48:42 VACCINE (4 - PPSV23 if available, else PCV20) [code = 65+ PNEUMOCOCCAL VACCINE (4 - PPSV23 if available, else PCV20)] Future Scheduled 2022-03-25 INFLUENZA VACCINE Method [facility] Test 14:48:42 [code = INFLUENZA VACCINE] Future Scheduled 2022-03-04 SHINGLES VACCINES (1 Met [facility] [place] Test 14:03:57 of 2) [code = SHINGLES VACCINES (1 of 2)] Future Scheduled 2022-03-04 BREAST CANCER [facility] Test 14:03:57 SCREENING [code = BREAST CANCER SCREENING] Future Scheduled 2022-03-04 COLONOSCOPY SCREENING [facility] Test 14:03:57 [code = COLONOSCOPY SCREENING] Future Scheduled 2022-03-04 HEPATITIS B VACCINES Met [facility] [place] Test 14:03:57 (1 of 3 - Risk 3-dose series) [code = HEPATITIS B VACCINES (1 of 3 - Risk 3-dose series)] Future Scheduled 2022-03-04 COVID-19 VACCINE (3 - [facility] Test 14:03:57 Booster for Pfizer series) [code = COVID-19 VACCINE (3 - Booster for Pfizer series)] Future Scheduled 2022-03-04 65+ [facility]AL [facility] Test 14:03:57 VACCINE (4 - PPSV23 if available, else PCV20) [code = 65+ PNEUMOCOCCAL VACCINE (4 - PPSV23 if available, else PCV20)] Future Scheduled 2022-03-04 INFLUENZA VACCINE Method [facility] Test 14:03:57 [code = INFLUENZA VACCINE] Future Scheduled 2022-03-04 SHINGLES VACCINES (1 Met [facility] [place] Test 14:03:57 of 2) [code = SHINGLES VACCINES (1 of 2)] Future Scheduled 2022-03-04 BREAST CANCER [facility] Test 14:03:57 SCREENING [code = BREAST CANCER SCREENING] Future Scheduled 2022-03-04 COLONOSCOPY SCREENING [facility] Test 14:03:57 [code = COLONOSCOPY SCREENING] Future Scheduled 2022-03-04 HEPATITIS B VACCINES Met [facility] [place] Test 14:03:57 (1 of 3 - Risk 3-dose series) [code = HEPATITIS B VACCINES (1 of 3 - Risk 3-dose series)] Future Scheduled 2022-03-04 COVID-19 VACCINE (3 - [facility] Test 14:03:57 Booster for Pfizer series) [code = COVID-19 VACCINE (3 - Booster for Pfizer series)] Future Scheduled 2022-03-04 65+ PNEUMOCOCCAL [facility] Test 14:03:57 VACCINE (4 - PPSV23 if available, else PCV20) [code = 65+ PNEUMOCOCCAL VACCINE (4 - PPSV23 if available, else PCV20)] Future Scheduled 2022-03-04 INFLUENZA VACCINE Method [facility] Test 14:03:57 [code = INFLUENZA VACCINE] Future Scheduled 2022-03-04 SHINGLES VACCINES (1 Met [facility] [place] Test 14:03:57 of 2) [code = SHINGLES VACCINES (1 of 2)] Future Scheduled 2022-03-04 BREAST CANCER [facility] Test 14:03:57 SCREENING [code = BREAST CANCER SCREENING] Future Scheduled 2022-03-04 COLONOSCOPY SCREENING [facility] Test 14:03:57 [code = COLONOSCOPY SCREENING] Future Scheduled 2022-03-04 HEPATITIS B VACCINES Met [facility] [place] Test 14:03:57 (1 of 3 - Risk 3-dose series) [code = HEPATITIS B VACCINES (1 of 3 - Risk 3-dose series)] Future Scheduled 2022-03-04 COVID-19 VACCINE (3 - [facility] Test 14:03:57 Booster for Pfizer series) [code = COVID-19 VACCINE (3 - Booster for Pfizer series)] Future Scheduled 2022-03-04 65+ [facility]AL [facility] Test 14:03:57 VACCINE (4 - PPSV23 if available, else PCV20) [code = 65+ PNEUMOCOCCAL VACCINE (4 - PPSV23 if available, else PCV20)] Future Scheduled 2022-03-04 INFLUENZA VACCINE [facility] Test 14:03:57 [code = INFLUENZA VACCINE] Future Scheduled 2022-03-04 SHINGLES VACCINES (1 Met [facility] [place] Test 14:03:57 of 2) [code = SHINGLES VACCINES (1 of 2)] Future Scheduled 2022-03-04 BREAST CANCER [facility] Test 14:03:57 SCREENING [code = BREAST CANCER SCREENING] Future Scheduled 2022-03-04 COLONOSCOPY SCREENING [facility] Test 14:03:57 [code = COLONOSCOPY SCREENING] Future Scheduled 2022-03-04 HEPATITIS B VACCINES Met [facility] [place] Test 14:03:57 (1 of 3 - Risk 3-dose series) [code = HEPATITIS B VACCINES (1 of 3 - Risk 3-dose series)] Future Scheduled 2022-03-04 COVID-19 VACCINE (3 - [facility] Test 14:03:57 Booster for Pfizer series) [code = COVID-19 VACCINE (3 - Booster for Pfizer series)] Future Scheduled 2022-03-04 65+ PNEUMOCOCCAL [facility] Test 14:03:57 VACCINE (4 - PPSV23 if available, else PCV20) [code = 65+ PNEUMOCOCCAL VACCINE (4 - PPSV23 if available, else PCV20)] Future Scheduled 2022-03-04 INFLUENZA VACCINE [facility] Test 14:03:57 [code = INFLUENZA VACCINE] Future Scheduled 2022-02-11 SHINGLES VACCINES (1 Met [facility] [place] Test 13:39:12 of 2) [code = SHINGLES VACCINES (1 of 2)] Future Scheduled 2022-02-11 BREAST CANCER [facility] Test 13:39:12 SCREENING [code = BREAST CANCER SCREENING] Future Scheduled 2022-02-11 COLONOSCOPY SCREENING [facility] Test 13:39:12 [code = COLONOSCOPY SCREENING] Future Scheduled 2022-02-11 HEPATITIS B VACCINES Met [facility] [place] Test 13:39:12 (1 of 3 - Risk 3-dose series) [code = HEPATITIS B VACCINES (1 of 3 - Risk 3-dose series)] Future Scheduled 2022-02-11 COVID-19 VACCINE (3 - [facility] Test 13:39:12 Booster for Pfizer series) [code = COVID-19 VACCINE (3 - Booster for Pfizer series)] Future Scheduled 2022-02-11 65+ PNEUMOCOCCAL [facility] Test 13:39:12 VACCINE (4 - PPSV23 or PCV20) [code = 65+ PNEUMOCOCCAL VACCINE (4 - PPSV23 or PCV20)] Future Scheduled 2022-02-11 INFLUENZA VACCINE Method [facility] Test 13:39:12 [code = INFLUENZA VACCINE] Future Scheduled 2022-01-29 SHINGLES VACCINES (1 Met [facility] [place] Test 14:07:20 of 2) [code = SHINGLES VACCINES (1 of 2)] Future Scheduled 2022-01-29 BREAST CANCER [facility] Test 14:07:20 SCREENING [code = BREAST CANCER SCREENING] Future Scheduled 2022-01-29 COLONOSCOPY SCREENING [facility] Test 14:07:20 [code = COLONOSCOPY SCREENING] Future Scheduled 2022-01-29 HEPATITIS B VACCINES Met [facility] [place] Test 14:07:20 (1 of 3 - Risk 3-dose series) [code = HEPATITIS B VACCINES (1 of 3 - Risk 3-dose series)] Future Scheduled 2022-01-29 COVID-19 VACCINE (3 - [facility] Test 14:07:20 Booster for Pfizer series) [code = COVID-19 VACCINE (3 - Booster for Pfizer series)] Future Scheduled 2022-01-29 65+ PNEUMOCOCCAL [facility] Test 14:07:20 VACCINE (4 - PPSV23 or PCV20) [code = 65+ PNEUMOCOCCAL VACCINE (4 - PPSV23 or PCV20)] Future Scheduled 2022-01-29 INFLUENZA VACCINE Method [facility] Test 14:07:20 [code = INFLUENZA VACCINE] Future Scheduled 2022-01-29 SHINGLES VACCINES (1 Met [facility] [place] Test 14:07:20 of 2) [code = SHINGLES VACCINES (1 of 2)] Future Scheduled 2022-01-29 BREAST CANCER [facility] Test 14:07:20 SCREENING [code = BREAST CANCER SCREENING] Future Scheduled 2022-01-29 COLONOSCOPY SCREENING [facility] Test 14:07:20 [code = COLONOSCOPY SCREENING] Future Scheduled 2022-01-29 HEPATITIS B VACCINES Met [facility] [place] Test 14:07:20 (1 of 3 - Risk 3-dose series) [code = HEPATITIS B VACCINES (1 of 3 - Risk 3-dose series)] Future Scheduled 2022-01-29 COVID-19 VACCINE (3 - [facility] Test 14:07:20 Booster for Pfizer series) [code = COVID-19 VACCINE (3 - Booster for Pfizer series)] Future Scheduled 2022-01-29 65+ [facility]CCAL [facility] Test 14:07:20 VACCINE (4 - PPSV23 or PCV20) [code = 65+ PNEUMOCOCCAL VACCINE (4 - PPSV23 or PCV20)] Future Scheduled 2022-01-29 INFLUENZA VACCINE Method [facility] Test 14:07:20 [code = INFLUENZA VACCINE] Future Scheduled 2022-01-29 SHINGLES VACCINES (1 Met [facility] [place] Test 14:07:20 of 2) [code = SHINGLES VACCINES (1 of 2)] Future Scheduled 2022-01-29 BREAST CANCER [facility] Test 14:07:20 SCREENING [code = BREAST CANCER SCREENING] Future Scheduled 2022-01-29 COLONOSCOPY SCREENING [facility] Test 14:07:20 [code = COLONOSCOPY SCREENING] Future Scheduled 2022-01-29 HEPATITIS B VACCINES Met [facility] [place] Test 14:07:20 (1 of 3 - Risk 3-dose series) [code = HEPATITIS B VACCINES (1 of 3 - Risk 3-dose series)] Future Scheduled 2022-01-29 COVID-19 VACCINE (3 - [facility] Test 14:07:20 Booster for Pfizer series) [code = COVID-19 VACCINE (3 - Booster for Pfizer series)] Future Scheduled 2022-01-29 65+ [facility]CCAL [facility] Test 14:07:20 VACCINE (4 - PPSV23 or PCV20) [code = 65+ PNEUMOCOCCAL VACCINE (4 - PPSV23 or PCV20)] Future Scheduled 2022-01-29 INFLUENZA VACCINE Method [facility] Test 14:07:20 [code = INFLUENZA VACCINE] Future Scheduled 2022-01-29 SHINGLES VACCINES (1 Met [facility] [place] Test 14:07:20 of 2) [code = SHINGLES VACCINES (1 of 2)] Future Scheduled 2022-01-29 BREAST CANCER [facility] Test 14:07:20 SCREENING [code = BREAST CANCER SCREENING] Future Scheduled 2022-01-29 COLONOSCOPY SCREENING [facility] Test 14:07:20 [code = COLONOSCOPY SCREENING] Future Scheduled 2022-01-29 HEPATITIS B VACCINES Met [facility] [place] Test 14:07:20 (1 of 3 - Risk 3-dose series) [code = HEPATITIS B VACCINES (1 of 3 - Risk 3-dose series)] Future Scheduled 2022-01-29 COVID-19 VACCINE (3 - [facility] Test 14:07:20 Booster for Pfizer series) [code = COVID-19 VACCINE (3 - Booster for Pfizer series)] Future Scheduled 2022-01-29 65+ PNEUMOCOCCAL [facility] Test 14:07:20 VACCINE (4 - PPSV23 or PCV20) [code = 65+ PNEUMOCOCCAL VACCINE (4 - PPSV23 or PCV20)] Future Scheduled 2022-01-29 INFLUENZA VACCINE Method [facility] Test 14:07:20 [code = INFLUENZA VACCINE] Future Scheduled 2022-01-20 SHINGLES VACCINES (1 Met [facility] [place] Test 06:12:34 of 2) [code = SHINGLES VACCINES (1 of 2)] Future Scheduled 2022-01-20 Screening for [facility] Test 06:12:34 malignant neoplasm of cervix (procedure) [code = [id number]] Future Scheduled 2022-01-20 BREAST CANCER [facility] Test 06:12:34 SCREENING [code = BREAST CANCER SCREENING] Future Scheduled 2022-01-20 COLONOSCOPY SCREENING [facility] Test 06:12:34 [code = COLONOSCOPY SCREENING] Future Scheduled 2022-01-20 HEPATITIS B VACCINES Met [facility] [place] Test 06:12:34 (1 of 3 - Risk 3-dose series) [code = HEPATITIS B VACCINES (1 of 3 - Risk 3-dose series)] Future Scheduled 2022-01-20 COVID-19 VACCINE (3 - [facility] Test 06:12:34 Booster for Pfizer series) [code = COVID-19 VACCINE (3 - Booster for Pfizer series)] Future Scheduled 2022-01-20 65+ PNEUMOCOCCAL [facility] Test 06:12:34 VACCINE (4 - PPSV23 or PCV20) [code = 65+ PNEUMOCOCCAL VACCINE (4 - PPSV23 or PCV20)] Future Scheduled 2022-01-20 INFLUENZA VACCINE Method [facility] Test 06:12:34 [code = INFLUENZA VACCINE] Future Scheduled 2022-01-16 SHINGLES VACCINES (1 Met [facility] [place] Test 12:09:25 of 2) [code = SHINGLES VACCINES (1 of 2)] Future Scheduled 2022-01-16 Screening for [facility] Test 12:09:25 malignant neoplasm of cervix (procedure) [code = [id number]] Future Scheduled 2022-01-16 BREAST CANCER [facility] Test 12:09:25 SCREENING [code = BREAST CANCER SCREENING] Future Scheduled 2022-01-16 COLONOSCOPY SCREENING [facility] Test 12:09:25 [code = COLONOSCOPY SCREENING] Future Scheduled 2022-01-16 HEPATITIS B VACCINES Met [facility] [place] Test 12:09:25 (1 of 3 - Risk 3-dose series) [code = HEPATITIS B VACCINES (1 of 3 - Risk 3-dose series)] Future Scheduled 2022-01-16 COVID-19 VACCINE (3 - [facility] Test 12:09:25 Booster for Pfizer series) [code = COVID-19 VACCINE (3 - Booster for Pfizer series)] Future Scheduled 2022-01-16 65+ [facility] Test 12:09:25 VACCINE (4 - PPSV23 or PCV20) [code = 65+ PNEUMOCOCCAL VACCINE (4 - PPSV23 or PCV20)] Future Scheduled 2022-01-16 INFLUENZA VACCINE Method [facility] Test 12:09:25 [code = INFLUENZA VACCINE] Future Scheduled 2022-01-14 SHINGLES VACCINES (1 Met [facility] [place] Test 04:11:46 of 2) [code = SHINGLES VACCINES (1 of 2)] Future Scheduled 2022-01-14 Screening for [facility] Test 04:11:46 malignant neoplasm of cervix (procedure) [code = [id number]] Future Scheduled 2022-01-14 BREAST CANCER [facility] Test 04:11:46 SCREENING [code = BREAST CANCER SCREENING] Future Scheduled 2022-01-14 COLONOSCOPY SCREENING [facility] Test 04:11:46 [code = COLONOSCOPY SCREENING] Future Scheduled 2022-01-14 HEPATITIS B VACCINES Met [facility] [place] Test 04:11:46 (1 of 3 - Risk 3-dose series) [code = HEPATITIS B VACCINES (1 of 3 - Risk 3-dose series)] Future Scheduled 2022-01-14 COVID-19 VACCINE (3 - [facility] Test 04:11:46 Booster for Pfizer series) [code = COVID-19 VACCINE (3 - Booster for Pfizer series)] Future Scheduled 2022-01-14 65+ PNEUMOCOCCAL [facility] Test 04:11:46 VACCINE (4 - PPSV23 or PCV20) [code = 65+ PNEUMOCOCCAL VACCINE (4 - PPSV23 or PCV20)] Future Scheduled 2022-01-14 INFLUENZA VACCINE [facility] Test 04:11:46 [code = INFLUENZA VACCINE] Future Scheduled 2021-08-26 Screening for [facility] Test 13:02:23 malignant neoplasm of cervix (procedure) [code = [id number]] Future Scheduled 2021-08-26 BREAST CANCER [facility] Test 13:02:23 SCREENING [code = BREAST CANCER SCREENING] Future Scheduled 2021-08-26 COLONOSCOPY SCREENING [facility] Test 13:02:23 [code = COLONOSCOPY SCREENING] Future Scheduled 2021-08-26 Screening for [facility] Test 13:02:23 malignant neoplasm of lung (procedure) [code = 224040633] Future Scheduled 2021-08-26 SHINGLES VACCINES (#1) [facility] Test 13:02:23 [code = SHINGLES VACCINES (#1)] Future Scheduled 2021-08-26 COVID-19 VACCINE (3 - [facility] Test 13:02:23 Pfizer risk 4-dose series) [code = COVID-19 VACCINE (3 - Pfizer risk 4-dose series)] Future Scheduled 2021-08-26 65+ PNEUMOCOCCAL [facility] Test 13:02:23 VACCINE (4 of 4 - PPSV23) [code = 65+ PNEUMOCOCCAL VACCINE (4 of 4 - PPSV23)] Future Scheduled 2021-08-26 INFLUENZA VACCINE Method [facility] Test 13:02:23 [code = INFLUENZA VACCINE] Encounters Start End Encounter Admission Attending Care Care Encounter Source Date/Time Date/Time Type Type Clinicians Facility Department ID 2022-02-18 Outpatient W [facility] [id number] [place] 14:30:[address] [place] [address] 2021-07-14 Outpatient PANKAJ [facility] [id number] [place] 09:33:51 RADHAFormerly [facility] 2021-06-02 Outpatient HEMATPOUR, [facility] [id number] [place] 13:58:59 [facility] 2021-04-28 Outpatient HEMATPOUR, [facility] [id number] [place] 11:21:22 [facility] 2021-03-20 Emergency [facility] [id number] Univers 16:07:40 ity [facility] 2020-12-12 Outpatient HEMATPOUR, [facility] [id number] [place] 08:16:46 [facility] 2020-10-31 Outpatient HEMATPOUR, [facility] [id number] [place] 09:44:50 [facility]HASHAYAR [facility]alt [facility] 2020-09-30 Outpatient HEMATPOUR, [facility] [id number] [place] 13:16:03 [facility] 2023-02-07 2023-02-07 Outpatient R [facility] [id number] Univers 09:00:00 09:00:00 SANTIAGO y [facility] 2023-01-27 2023-01-27 Emergency X SANKET, K [facility] ERT [id number] Univers 10:47:00 18:59:00 [facility] 2023-01-27 2023-01-27 Emergency Sanket, K [facility] 1.2.840.114 [id number] Univers 10:47:00 18:59:00 Kiersten BULLOCK 350.1.13.10 i ty of [place] 4.2.7.2.686 [facility] [id number] [place] [id number] [place] 2023-01-17 2023-01-17 [facility] 1.2.827.182 [id number] Univers 00:00:00 00:00:00 [facility] 350.1.13.10 i ty of [facility] 4.2.7.2.686 [facility] [id number] [address] 2022-11-26 2022-11-26 Outpatient R [facility] [id number] Univers 08:30:00 08:30:00 ity [facility] 2022-11-15 2022-11-15 Outpatient R [facility] [id number] Univers 08:30:00 08:30:00 [facility] 2022-11-02 2022-11-02 Outpatient R [facility] [id number] Univers 08:30:00 08:30:00 SANTIAGO [facility] 2022-10-27 2022-10-27 Telephone [facility] 1.2.840.114 [id number] Univers 00:00:00 00:00:00 [facility] 350.1.13.10 i ty [place] [id number] [address] 2022-10-06 2022-10-06 Outpatient R [facility] [id number] Univers 09:30:00 09:30:00 SANTIAGO [facility] 2022-09-26 2022-09-26 Refill [facility], [facility] 1.2.468.389 [id number] Univers 00:00:00 00:00:00 [facility] 350.1.13.10 i [place] [id number] [address] 2022-09-03 2022-09-03 Outpatient R [facility] [id number] Univers 11:00:00 11:00:00 SANTIAGO [facility] 2022-08-24 2022-08-24 Refill [facility], 1.2.840.0 [id number] Univers 00:00:00 00:00:00 [place] 62591.1.1 [facility] 3.104.2.7 [facility]3.342191 Medica l .8 Branch 2022-05-20 2022-05-20 Telephone [facility], [facility] 1.2.840.114 [id number] Univers 00:00:00 00:00:00 [facility] 350.1.13.10 i ty [place] [id number] [address] 2022-05-10 2022-05-10 Emergency X BYRON [facility] ERT [id number] Univers 10:30:00 16:31:00 HOME ity [facility] 2022-05-10 2022-05-10 Emergency Concepcion, TRAUMA 1.2.840.114 [id number] Univers 10:30:00 16:31:00 [facility] 350.1.13.10 it [place] [id number] [facility] 014 [place] 2022-05-10 2022-05-10 Telephone [facility] 1.2.840.114 [id number] Univers 00:00:00 00:00:00 [facility] 350.1.13.10 i ty [place] [id number] [address] 2022-05-08 2022-05-08 [facility] [id number] Univers 16:18:00 18:42:00 THERESA charlie [facility] 2022-05-08 2022-05-08 Emergency [facility] 1.2.840.114 [id number] Univers 16:18:00 18:42:00 Theresa BULLOCK 350.1.13.10 ity [place] [id number] [address] 2022-05-07 2022-05-07 Telephone [facility] 1.2.840.114 [id number] Univers 00:00:00 00:00:00 [facility] 350.1.13.10 i ty [place] [id number] [address] 2022-05-06 2022-05-06 Emergency [facility] [id number] Univers 14:13:00 18:19:00 ANETTE barbosa [facility] 2022-05-06 2022-05-06 Emergency [facility] 1.2.490.135 [id number] Univers 14:13:00 18:19:00 Anette BULLOCK 350.1.13.10 ity [place] [id number] [address] 2022-05-06 2022-05-06 Telephone JOSÉ ANTONIO Cardenas 1.2.840.114 [id number] Univers 00:00:00 00:00:00 [facility] 350.1.13.10 i ty [place] [id number] [address] 2022-04-22 2022-04-22 Emergency X [facility] ERT [id number] Univers 13:55:00 17:00:00 PAULETTE ity of [facility] 2022-04-22 2022-04-22 Emergency [facility] 1.2.310.728 [id number] Univers 13:55:00 17:00:00 Paulette S [place] 350.1.13.10 i ty [place] [id number] [address] 2022-04-07 2022-04-07 Outpatient R [facility] [id number] Univers 20:40:00 20:40:00 ATTENDING ity of [facility] 2022-04-07 2022-04-07 Telephone Devin, 1.2.840.6 [id number] Univers 00:00:00 00:00:00 Robbi R 84257.1.1 i ty of 3.104.2.7 [place] .3.101834 Medica l .8 [place] 2022-03-05 2022-03-05 Men'S Designer [place] Cardenas 1.2.840.1 [id number] Univers 13:45:00 14:00:00 Visit [facility] 59712.1.1 ity of 3.104.2.7 [place] .3.598045 Medica l .8 Branch 2022-03-05 2022-03-05 Office JOSÉ ANTONIO Cardenas 1.2.596.636 [id number] Univers 13:00:00 13:30:00 Visit [facility] 350.1.13.10 i ty [place] [id number] [address] 2022-03-05 2022-03-05 Outpatient R [facility] [id number] Univers 13:00:00 13:00:00 SANTIAGO barbosa [facility] 2022-02-26 2022-02-26 Outpatient R [facility] [id number] Univers 08:30:00 08:30:00 SANTIAGO barbosa [facility] 2022-02-26 2022-02-26 Outpatient R [facility] [id number] Univers 08:30:00 08:30:00 SANTIAGO [facility] 2022-02-17 2022-02-17 Transition Stevo, 1.2.840.3 [id number] Univers 00:00:00 00:00:00 of Care Isaias Maria Elena 85787.1.1 it y of 3.104.2.7 [place] .3.291915 Medica l .8 [place] 2022-02-10 2022-02-16 Inpatient X FRANK [facility] [id number] Univers 22:59:00 19:27:00 [facility] 2022-02-10 2022-02-16 Hospital Reilly Means 1.2.840.1 [id number] Univers 22:59:00 19:27:00 Encounter Ofe Shields 40544.1.1 ity of [place] 3.104.2.7 [place] .3.555261 Medica l .8 [place] 2022-02-11 2022-02-11 Telephone East, 1.2.840.6 [id number] Univers 00:00:00 00:00:00 Santiago 58843.1.1 ity of 3.104.2.7 [place] .3.662413 Medica l .8 [place] 2022-02-10 2022-02-10 Travel 1.2.840.1 1.2.180.605 [id number] Univers 00:00:00 00:00:00 92041.1.1 350.1.13.10 ity of 3.104.2.7 4.2.7.3.698 [place] .3.481752 084.8 Medica l .8 [place] 2022-01-30 2022-01-30 Telephone East, 1.2.840.6 [id number] Univers 00:00:00 00:00:00 [place] 75556.1.1 ity of 3.104.2.7 [place] .3.468809 Medica l .8 Branch 2022-01-06 2022-01-06 Orders Doctor FERMIN 1.2.840.114 [id number] Univers 00:00:00 00:00:00 Only Unassigned, JACKELINE 350.1.13.10 ity of [place] [facility] 4.2.7.2.686 Yomi as [id number] [facility] 009 Branch 2021-12-25 2021-12-25 Orders Doctor FERIMN 1.2.840.114 [id number] Univers 00:00:00 00:00:00 Only Unassigned, JACKELINE 350.1.13.10 ity of [place] [facility] 4.2.7.2.686 Yomi as [id number] [facility] 009 [place] 2021-12-12 2021-12-13 Emergency X Bill COLES [facility] ERT [id number] Univers 23:53:00 01:52:00 ity of [facility] 2021-12-12 2021-12-13 Emergency Bill Coles [facility] 1.2.840.114 [id number] Univers 23:53:00 01:52:00 Kiersten BULLOCK 350.1.13.10 i ty of [place] [id number] [facility] 084 Branch 2021-11-20 2021-11-20 Men'S Designer [facility] UNIVERSIT 1.2.840.114 [id number] Univers 09:45:00 10:00:00 Visit [facility] 350.1.13.10 ity of [place] [id number] [facility] 316 Branch 2021-11-20 2021-11-20 Office [facility] 1.2.412.246 [id number] Univers 08:30:00 09:00:00 Visit [facility] 350.1.13.10 i ty of [place] [id number] [facility] 089 Branch 2021-11-20 2021-11-20 Outpatient R EAST, [facility] [id number] Univers 08:30:00 08:30:00 SANTIAGO barbosa [facility] 2021-11-20 2021-11-20 Outpatient R EAST, [facility] [id number] Univers 08:30:00 08:30:00 SANTIAGO barbosa [facility] 2021-11-20 2021-11-20 Outpatient R EAST, [facility] [id number] Univers 08:30:00 08:30:00 SANTIAGO barbosa [facility] 2021-11-20 2021-11-20 Outpatient R EAST, [facility] [id number] Univers 08:30:00 08:30:00 SANTIAGO charlie [facility] 2021-10-24 2021-10-24 [facility] [id number] Univers 16:27:00 22:26:00 [facility] 2021-10-24 2021-10-24 [facility] [id number] Univers 16:27:00 22:26:00 CHARITY barbosa [facility] 2021-10-24 2021-10-24 Emergency Reilly Means [facility] 1.2.840. 114 [id number] Univers 16:27:00 22:26:00 [facility] 350.1.13.10 ity [facility] 4.2.7.2.686 [facility] [id number] [address] 2021-10-23 2021-10-24 Emergency X ESVIN, [facility] ERT [id number] Univers 20:22:00 02:57:00 CHARITY charlie [facility] 2021-10-23 2021-10-24 [facility] 1.2.134.009 [id number] Univers 20:22:00 02:57:00 Charity BULLOCK 350.1.13.10 ity [facility] 4.2.7.2.686 [facility] [id number] [address] 2021-09-07 2021-09-07 Outpatient R SELF, [facility] [id number] Univers 08:00:00 08:00:00 GADIEL barbosa o f [facility] 2021-09-07 2021-09-07 Outpatient R [facility], [facility] [id number] Univers 08:00:00 08:00:00 GADIEL barbosa o f [facility] 2021-08-21 2021-08-21 Outpatient R [facility] [id number] Univers 10:45:00 10:45:00 SANTIAGO charlie [facility] 2021-08-21 2021-08-21 Men'S Designer [place] Cardenas 1.2.840.1 [id number] Univers 10:45:00 10:45:00 Visit [facility] 07953.1.1 ity of 3.104.2.7 [place] .3.448481 Medica l .8 [place] 2021-08-21 2021-08-21 Office East, 1.2.840.8 [id number] Univers 08:30:00 09:00:00 Visit Santiago 37366.1.1 ity of 3.104.2.7 [place] .3.865824 Medica l .8 [place] 2021-08-21 2021-08-21 Office [facility], [facility] 1.2.249.737 [id number] Univers 08:30:00 09:00:00 Visit Santiago [facility] 350.1.13.10 i ty of CL[place] 4[place] [id number] [facility] 089 [place] 2021-08-21 2021-08-21 Outpatient R [facility] [id number] Univers 08:30:00 08:30:00 SANTIAGO charlie [facility] 2021-08-21 2021-08-21 Travel 1.2.840.1 1.2.411.064 [id number] Univers 00:00:00 00:00:00 92816.1.1 350.1.13.10 ity of 3.104.2.7 4.2.7.3.698 [place] .3.057754 084.8 Medica l .8 [place] 2021-08-14 2021-08-14 Telephone East, 1.2.840.0 [id number] Univers 00:00:00 00:00:00 Santiago 60060.1.1 ity of 3.104.2.7 [place] .3.640802 Medica l .8 Branch 2021-08-13 2021-08-13 Telephone Ronald, 1.2.840.6 [id number] Univers 00:00:00 00:00:00 Santiago 65146.1.1 ity of 3.104.2.7 [place] .3.106428 Medica l .8 Branch 2021-08-11 2021-08-11 Outpatient [facility] [id number] Univers 08:00:00 08:00:00 [facility] 2021-08-05 2021-08-05 In[facility] [id number] [facility] 05:24:00 05:24:00 Mike 31 [facility] 2021-07-20 2021-07-20 Outpatient [facility] [id number] [facility] 10:00:00 10:00:00 [facility] 2021-07-14 2021-07-14 Office Pankaj, UTP 6400 1.2.840.114 13 [id number] [place] 08:45:00 09:34:[address] 350.1.13.58 Health 9.2.7.2.686 [id number] 1 2021-07-09 2021-07-09 Telephone Hematpoliz, UTP 6400 1.2.840.114 [id number] [place] 00:00:00 00:00:[address] Mar[address]rieamaris [address] 350.1.13.58 Health 9.2.7.2.686 [id number] 1 2021-07-09 2021-07-09 Telephone Hematpour, UTP 6400 1.2.840.114 [id number] [place] 00:00:00 00:00:[address] 350.1.13.58 Health 9.2.7.2.686 [id number] 1 2021-07-03 2021-07-03 Outpatient R EAST, [facility] [id number] Univers 08:00:00 08:00:00 [facility] 2021-06-17 2021-06-17 Inpatient WINTER Leal INTE.02 [id number] [facility] 10:56:00 14:36:00 Mike Villeda [facility] 2021-06-15 2021-06-15 Outpatient R SELF, [facility] [id number] Univers 10:15:00 11:07:21 GADIEL barbosa o [facility] 2021-06-15 2021-06-15 Outpatient R SELF, [facility] [id number] Univers 10:15:00 10:15:00 GADIEL barbosa o [facility] 2021-06-15 2021-06-15 Outpatient R SELF, [facility] [id number] Univers 10:15:00 10:15:00 GADIEL rodas [facility] 2021-06-15 2021-06-15 Orders Doctor 1.2.840.0 [id number] Univers 00:00:00 00:00:00 Only Unassigned, 75258.1.1 ity of [place] 3.104.2.7 [place] .3.926197 Medica l .8 [place] 2021-06-15 2021-06-15 Travel 1.2.840.1 1.2.568.081 [id number] Univers 00:00:00 00:00:00 47054.1.1 350.1.13.10 ity of 3.104.2.7 4.2.7.3.698 [place] .3.362334 084.8 Medica l .8 [place] 2021-06-11 2021-06-11 Refill East, UNIVERSIT 1.2.832.516 [id number] Univers 00:00:00 00:00:00 [facility] 350.1.13.10 i ty of CLINICS 4.2.[place].2.[place] [id number] [facility] por[facility]io 089 Branch 2021-06-11 2021-06-11 Refill East, 1.2.840.4 [id number] Univers 00:00:00 00:00:00 Santiago 63479.1.1 ity of 3.104.2.7 [place] .3.522821 Medica l .8 Branch 2021-06-05 2021-06-05 Outpatient R EAST, [facility] [id number] Univers 09:00:00 09:00:00 SANTIAGO raheemy of [facility] 2021-06-02 2021-06-02 Telephone East, UN[facility]ERS[facility] 1.2.840.114 [id number] Univers 00:00:00 00:00:00 Santiago [facility] 350.1.13.10 i ty of [facility] 4.2.7.2.686 [place] [id number] [facility] [address] [place] 2021-06-02 2021-06-02 Telephone East, 1.2.840.6 [id number] [id number] Univers 00:00:00 00:00:00 Santiago 28500.1.1 ity of 3.104.2.7 [place] .3.800647 Medica l .8 [place] 2021-05-29 2021-05-29 Telephone East, 1.2.840.7 [id number] [id number] Univers 00:00:00 00:00:00 Santiago 81152.1.1 ity of 3.104.2.7 [place] .3.811987 Medica l .8 [place] 2021-05-29 2021-05-29 Telephone East, 1.2.840.3 [id number] [id number] Univers 00:00:00 00:00:00 Santiago 58496.1.1 ity of 3.104.2.7 [place] .3.570492 Medica l .8 [place] 2021-05-25 2021-05-25 Outpatient R SELF, [facility] [id number] Univers 08:00:00 08:00:00 GADIEL rodas [facility] 2021-04-29 2021-04-29 Outpatient R LALA, [facility] [id number] Univers 08:00:00 08:00:00 NIKOLAI barbosa of [facility] 2021-04-28 2021-04-28 Telephone Hematpour, [facility] 6400 1.2.840.114 [id number] [place] 00:00:00 00:00:[address] 350.1.13.58 [facility] 9.2.7.2.686 [id number] 1 2021-04-28 2021-04-28 Telephone Jailyn, 1.2.840.4 [id number] Methodi 00:00:00 00:00:[address] 3.430.2.7 Hospit a .3.026565 l .8 2021-03-31 2021-03-31 Orders Carol Ann, 1.2.840.1 [id number] Methodi 00:00:00 00:00:00 Only Sarai Luisana 55179.1.1 979 s t 3.430.2.7 Hospit a .3.177945 l .8 2021-03-30 2021-03-30 Outpatient R RODO, [facility] [id number] Univers 08:45:00 08:45:00 GADIEL rodas [facility] 2021-03-24 2021-03-24 Telephone Jailyn, 1.2.840.4 [id number] Methodi 00:00:00 00:00:[address] 3.430.2.7 Hospit a .3.462528 l .8 2021-02-13 2021-02-13 Telephone Ronald, 1.2.840.2 [id number] 876 [id number] Univers 00:00:00 00:00:00 Santiago 13372.1.1 ity of 3.104.2.7 [facility]3.498355 Medica l 8 Branch 2021-01-28 2021-01-28 Outpatient R LALA, [facility] [id number] Univers 08:45:00 09:37:00 NIKOLAI barbosa [facility] 2021-01-28 2021-01-28 Travel 1.2.840.1 1.2.697.920 [id number] [id number] Univers 00:00:00 00:00:00 93211.1.1 350.1.13.10 ity of 3.104.2.7 4.2.7.3.698 [place] .3.380731 084.8 Medica l .8 Branch 2021-01-19 2021-01-19 Telephone Prabhu, 1.2.840.1 [id number] Methodi 00:00:00 00:00:[address] 3.430.2.7 Hospit a .3.867405 l .8 2021-01-04 2021-01-04 Letter Shelia, 1.2.840.2 [id number] 696 Univers 00:00:00 00:00:00 (Out) Dagoberto H 90338.1.1 ity of 3.104.2.7 [place] .3.416990 Medica l .8 Branch 2021-01-04 2021-01-04 Dmitry Bass, 1.2.840.9 [id number] 71644 696 Univers 00:00:00 00:00:00 (Out) Dagoberto H 76324.1.1 ity of 3.104.2.7 [place] .3.312435 Medica l .8 Branch 2021-01-03 2021-01-03 Dmitry Bass, 1.2.840.2 [id number] [id number] 790 Univers 00:00:00 00:00:00 (Out) Dagoberto H 62491.1.1 ity of 3.104.2.7 [place] .3.074649 Medica l .8 Branch 2021-01-03 2021-01-03 Dmitry Bass, 1.2.840.2 [id number] 790 Univers 00:00:00 00:00:00 (Out) Dagoberto H 97869.1.1 ity of 3.104.2.7 [place] .3.293884 Medica l .8 [place] 2021-01-02 2021-01-02 Outpatient R [facility] [id number] Univers 13:40:00 13:40:00 ity of [facility] 2021-01-02 2021-01-02 Laboratory Cuba Franks 1.2.840.9 [id number] Univers 12:14:13 12:57:34 Only Lab, Adc Fam Pob I 81033.1.1 ity of 3.104.2.7 [place] .3.473913 Medica l .8 [place] 2021-01-02 2021-01-02 Laboratory Cuba Franks 1.2.840.8 [id number] [facility] 12:14:13 12:57:34 Only Lab, [facility] Fam Pob I 63812.1.1 ity of 3.104.2.7 [place] .3.443672 Medica l .8 [place] 2021-01-02 2021-01-02 Travel 1.2.840.1 1.2.372.578 8467 2306 Univers 00:00:00 00:00:00 82167.1.1 350.1.13.10 ity of 3.104.2.7 4.2.7.3.698 [place] .3.890630 084.8 Medica l .8 [place] 2021-01-02 2021-01-02 Letter Doctor 1.2.840.2 [id number] 948 Univers 00:00:00 00:00:00 (Out) Unassigned, 06408.1.1 ity of [place] 3.104.2.7 [place] .3.934657 Medica l .8 [place] 2021-01-02 2021-01-02 Letter Doctor 1.2.840.6 [id number] 946 Univers 00:00:00 00:00:00 (Out) Unassigned, 70712.1.1 ity of [place] 3.104.2.7 [place] .3.711050 Medica l .8 [place] 2021-01-02 2021-01-02 Travel 1.2.840.1 1.2.826.408 5424 2306 Univers 00:00:00 00:00:00 92330.1.1 350.1.13.10 ity of 3.104.2.7 4[place]7.3.698 [place] .3.612029 084.8 Medica l .8 [place] 2021-01-02 2021-01-02 Letter Doctor 1.2.840.4 [id number] 948 Univers 00:00:00 00:00:00 (Out) Unassigned, 97282.1.1 ity of [place] 3.104.2.7 [place] .3.940549 Medica l .8 [place] 2021-01-02 2021-01-02 Letter Doctor 1.2.840.5 [id number] 946 Univers 00:00:00 00:00:00 (Out) Unassigned, 65778.1.1 ity of [place] 3.104.2.7 [place] .3.820891 Medica l .8 [place] 2020-12-22 2020-12-22 Telephone Beltran, 1.2.840.9 [id number] [id number] Univers 00:00:00 00:00:00 Devina R 75365.1.1 i ty of 3.104.2.7 [place] .3.658655 Medica l .8 [place] 2020-12-22 2020-12-22 Telephone Beltran, 1.2.840.0 [id number] [id number] Univers 00:00:00 00:00:00 Amarilissandynda R 91739.1.1 i ty of 3.104.2.7 [place] .3.435546 Medica l .8 [place] 2020-12-12 2020-12-12 Office [place], UTP 6400 1.2.840.114 12 [id number] [place] 07:42:02 08:18:[address] 350.1.13.58 Health 9.2.7.2.686 [id number] 1 2020-12-12 2020-12-12 Office Hematpour, UTP 6400 1.2.840.114 12 [id number] 07:42:02 08:18:[address] 350.1.13.58 9.2.7.2.686 [id number] 1 2020-12-09 2020-12-09 Telephone Meisenbach, 1.2.840.1 [id number] Methodi 00:00:00 00:00:00 Sarai Lieberman 75171.1.1 316 s t 3.430.2.7 Hospit a .3.322819 l .8 2020-12-08 2020-12-08 [facility], 1.2.840.1 [id number] [id number] Methodi 12:35:54 23:59:00 Encounter Ray [address]648.1.[address] 3.430.2.7 Hospit a .3.048956 l .8 2020-12-08 2020-12-08 [facility], 1.2.840.1 [id number] 83620 Methodi 17:25:00 17:30:[address] 3.430.2.7 Hospit a .3.801669 l .8 2020-12-08 2020-12-08 [facility], 1.2.840.1 [id number] 00686 Methodi 10:30:00 11:39:56 Visit Ray 53784.1.[address] 3.430.2.7 Hospit a .3.274411 l .8 2020-12-08 2020-12-08 Travel 1.2.840.1 1.2.907.663 5713 303162 Methodi 00:00:00 00:00:[address] 3.430.2.7 0.2.7.3.698 Ho spita .3.190624 084.8 l .8 2020-12-02 2020-12-02 [employer] Santiago Cardenas 1.2.840.1 [id number] [facility] 10:20:06 10:36:19 Visit [facility] 36626.1.1 ity of 3.104.2.7 [place] .3.233751 Medica l .8 [place] 2020-12-02 2020-12-02 [employer] Santiago Cardenas 1.2.840.1 [id number] [facility] 10:20:06 10:36:19 Visit [facility] 09250.1.1 ity of 3.104.2.7 [place] .3.870986 Medica l .8 [place] 2020-12-02 2020-12-02 [employer]er [facility] 1.2.840.114 8 [id number] 10:20:06 10:36:19 Visit [facility] 350.1.13.10 [facility] 4.2.7.2.686 [id number] [facility] 2020-12-02 2020-12-02 Office Ronald, 1.2.840.2 [id number] 528 Univers 08:31:37 09:01:37 Visit Santiago 35962.1.1 ity of 3.104.2.7 [place] .3.749402 Medica l .8 [place] 2020-12-02 2020-12-02 Outpatient R [facility] [id number] Univers 09:00:00 09:00:00 SANTIAGO ity [facility] 2020-11-25 2020-11-25 Office Beltran, 1.2.840.2 [id number] [id number] Univers 11:06:30 11:58:14 Visit Robbi Hairston 13685.1.1 i ty of 3.104.2.7 [place] .3.401978 Medica l .8 [place] 2020-11-25 2020-11-25 Office Beltran, 1.2.840.4 [id number] 865 Univers 11:06:30 11:58:14 Visit Robbi Hairston 96432.1.1 i ty of 3.104.2.7 [place] .3.616994 Medica l .8 [place] 2020-11-25 2020-11-25 [facility] 1.2.840.114 [id number] 11:06:30 11:58:14 Visit Robbi Hairston CHEMICAL ENGINEER 350.1.13.10 [facility] 4.2.7.2.686 MATERNAL [id number] & CHILD [address] [place] [address] 2020-11-25 2020-11-25 Outpatient R [facility] [id number] Univers 11:00:00 11:00:00 ity [facility] 2020-11-25 2020-11-25 Telephone Beltran, 1.2.840.2 [id number] 855 [id number] Univers 00:00:00 00:00:00 Roshunda R 25070.1.1 i ty of 3.104.2.7 [place] .3.563496 Medica l .8 Branch 2020-11-25 2020-11-25 Refill [facility], 1.2.840.4 [id number] [id number] 592 Univers 00:00:00 00:00:00 Santiago 77971.1.1 ity of 3.104.2.7 [place] .3.394513 Medica l .8 Branch 2020-11-25 2020-11-25 Travel 1.2.840.1 1.2.150.385 6850 0247 Univers 00:00:00 00:00:00 89357.1.1 350.1.13.10 ity of 3.104.2.7 [place]7.3.698 [place].412653 084.8 Medica l .8 Branch 2020-11-25 2020-11-25 Orders Doctor 1.2.840.4 [id number] 064 Univers 00:00:00 00:00:00 Only Unassigned, 35145.1.1 ity of [place] 3.104.2.7 [place] .3.246098 Medica l .8 Branch 2020-11-25 2020-11-25 Telephone Beltran, 1.2.840.1 [id number] 855 91042 Univers 00:00:00 00:00:00 Rossandynda R 38929.1.1 i ty of 3.104.2.7 [place] .3.882935 Medica l .8 Branch 2020-11-25 2020-11-25 Refill [facility], 1.2.840.3 [id number] 85586 592 Univers 00:00:00 00:00:00 Santiago 35929.1.1 ity of 3.104.2.7 [place] .3.194856 Medica l .8 Branch 2020-11-25 2020-11-25 Travel 1.2.840.1 1.2.468.569 3286 0247 Univers 00:00:00 00:00:00 99745.1.1 350.1.13.10 ity of 3.104.2.7 4.2.7.3.698 x[place] .3.812365 084.8 Medica l .8 Branch 2020-11-25 2020-11-25 Orders Doctor 1.2.840.6 [id number] 064 Univers 00:00:00 00:00:00 Only Unassigned, 41917.1.1 ity of [place] 3.104.2.7 [place] .3.182751 Medica l .8 Branch 2020-11-25 2020-11-[facility] 1.2.867.516 3834 4592 00:00:00 00:00:00 [facility] 350.1.13.10 [facility] 4.2.7.2.686 [id number] 089 2020-11-25 2020-11-25 Telephone [facility] 1.2.166.609 1032 0821 00:00:00 00:00:00 Robbi Hairston CHEMICAL ENGINEER 350.1.13.10 [facility] 4.2.7.2.686 MATERNAL [id number] & CHILD [address] [place] [place] [address] 2020-11-14 2020-11-14 Abstract Clark, 1.2.840.1 [id number] 50632 41138 Methodi 00:00:00 00:00:[address] 3.430.2.7 Hospit a .3.641922 l .8 2020-11-14 2020-11-14 Telephone Clark 1.2.840.1 [id number] 2100 [id number] Methodi 00:00:00 00:00:[address] 3.430.2.7 Hospit a .3.528312 l .8 2020-11-12 2020-11-12 Outpatient Marika [facility] [id number] Univers 08:30:00 08:30:00 SANTIAGO barbosa [facility] 2020-11-07 2020-11-07 Telephone Agustina Ortiz 6400 1.2.840.11 4 [id number] HI 00:00:00 00:00:00 Diana, Agustina [address] 350.1.13.58 Health 9.2.7.2.686 [id number] 1 2020-11-07 2020-11-07 Telephone Diana UTP 6400 1.2.840.114 124 [id number] 00:00:00 00:00:[address] 350.1.13.58 9.2.7.2.686 [id number] 1 2020-10-31 2020-10-31 Office Hematpoliz, [facility] 6400 1.2.840.114 12 [id number] HI 07:54:00 09:45:[address] 350.1.13.58 Health 9.2.7.2.686 [id number] 1 2020-10-30 2020-10-30 Abstract Rody Maguire UTP 6400 1.2.840.1 14 [id number] HI 00:00:00 00:00:[address] 350.1.13.58 Health 9.2.7.2.686 [id number] 1 2020-10-29 2020-10-29 Refill East, 1.2.840.8 [id number] [id number] 400 Univers 00:00:00 00:00:00 Santiago 47520.1.1 ity of 3.104.2.7 [place] .3.840352 Medica l .8 [place] 2020-10-29 2020-10-29 Refill [place], 1.2.840.7 [id number] 03886 400 Univers 00:00:00 00:00:00 Santiago 38353.1.1 ity of 3.104.2.7 [place] .3.440029 Medica l .8 Branch 2020-10-27 2020-10-27 Telephone Jailyn, 1.2.840.1 [id number] 21 [id number] Methodi 00:00:00 00:00:[address] 3.430.2.7 Hospit a .3.308528 l .8 2020-10-24 2020-10-24 Telephone Clark, 1.2.840.1 [id number] 2100 464787 Methodi 00:00:00 00:00:[address] 3.430.2.7 Hospit a .3.508637 l .8 2020-10-22 2020-10-22 Outpatient R SELF, [facility] [id number] Univers 13:00:00 13:00:00 GADIEL vogel [facility] 2020-10-22 2020-10-22 Travel 1.2.840.1 1.2.149.991 0236 3839 [facility] 00:00:00 00:00:00 81044.1.1 350.1.13.10 ity of 3.104.2.7 4.2.7.3.698 [place] .3.533825 084.8 Medica l .8 [place] 2020-10-22 2020-10-22 Travel 1.2.840.1 1.2.806.594 2468 3839 [facility] 00:00:00 00:00:00 97181.1.1 350.1.13.10 ity of 3.104.2.7 4.2.7.3.698 [place] .3.577878 084.8 Medica l .8 [place] 2020-10-13 2020-10-13 Outpatient R SELF, [facility] [id number] Univers 08:45:00 08:45:00 GADIEL vogel [facility] 2020-10-06 2020-10-12 Telemedici Chidimasa, 1.2.840.1 [id number] 21 [id number] Methodi 15:30:00 00:08:46 ne Ray 94110.1.[address] 3.430.2.7 Hospit a .3.842071 l .8 2020-09-30 2020-09-30 Telephone Chihara, 1.2.840.6 [id number] 21 [id number] Methodi 00:00:00 00:00:[address] 3.430.2.7 Hospit a .3.406987 l .8 2020-09-21 2020-09-21 Travel 1.2.840.1 1.2.542.515 5719 908177 Methodi 00:00:00 00:00:[address] 3.430.2.7 0.2.7.3.698 Ho spita .3.200737 084.8 l .8 2020-09-06 2020-09-06 [facility] 1.2.840.1 [id number] 21000 70358 Methodi 17:42:30 23:59:[address] 3.430.2.7 Hospit a .3.977175 l .8 2020-09-06 2020-09-06 [facility], 1.2.840.1 [id number] 2100 [id number] Methodi 16:50:00 17:41:00 Encounter Ray 61184.1.[address] 3.430.2.7 Hospit a .3.318087 l .8 2020-09-05 2020-09-05 [facility], 1.2.840.1 [id number] 2099 198807 Methodi 09:17:00 19:45:00 Encounter Ray [address]365.1.[address] 3.430.2.7 Hospit a .3.140113 l .8 2020-09-05 2020-09-05 [facility], 1.2.840.1 [id number] 13895 25135 Methodi 11:30:00 13:15:[address] 3.430.2.7 Hospit a .3.945805 l .8 2020-09-05 2020-09-05 Anesthesia [facility], 1.2.840.1 [id number] Methodi 11:27:00 12:20:00 Event Anupamwathi 67406.1.1 243 s t V. 3.430.2.7 Hospit a .3.138189 l .8 2020-09-05 2020-09-05 Travel 1.2.840.1 1.2.930.412 6587 924831 Methodi 00:00:00 00:00:[address] 3.430.2.7 0.2.7.3.698 spita .3.968732 084.8 l .8 2020-09-04 2020-09-04 Telephone Meisenbach, 1.2.840.1 [id number] Methodi 00:00:00 00:00:00 Sarai Corbin. 12379.1.1 762 s t 3.430.2.7 Hospit a .3.405176 l .8 2020-09-02 2020-09-02 Telephone Meisenbach, 1.2.840.3 [id number] Methodi 00:00:00 00:00:00 Sarai Corbin. 24948.1.1 344 s t 3.430.2.7 Hospit a .3.865225 l .8 2020-08-29 2020-08-30 Bedded [facility] [id number] [facility] 10:20:00 14:10:00 Outpatient r [place] 00 l [facility] 2020-08-29 2020-08-30 Outpatient [facility], [facility] CAR 7500 [facility] 05:20:00 09:10:00 BEVERLY 2020-08-06 2020-08-06 Office East, 1.2.840.9 [id number] Univers 08:03:23 09:17:49 Visit Santiago 03085.1.1 ity of 3.104.2.7 [facility]3.547881 Medica l .8 Branch 2020-08-06 2020-08-06 Outpatient [facility] [id number] Univers 08:30:00 08:30:00 SANTIAGO itcharlie of [facility] 2020-07-14 2020-07-14 Outpatient R [facility], [facility] [id number] Univers 09:30:00 09:30:00 GADIEL barbosa o f [facility] 2020-07-14 2020-07-14 Travel 1.2.840.1 1.2.742.208 8689 2575 Univers 00:00:00 00:00:00 82763.1.1 350.1.13.10 ity of 3.104.2.7 4.[place].7.3.698 [place] .3.433140 084.8 Medica l .8 [place] 2020-07-14 2020-07-14 Orders Doctor 1.2.840.6 [id number] Univers 00:00:00 00:00:00 Only Unassigned, 77541.1.1 ity of [place] 3.104.2.7 [place] .3.234088 Medica l .8 [place] 2020-06-16 2020-06-16 Outpatient R [facility], [facility] [id number] Univers 08:00:00 08:00:00 GADIEL barbosa o f [facility] 2020-06-06 2020-06-06 Telephone [place], 1.2.840.4 [id number] [id number] Univers 00:00:00 00:00:00 Santiago 76318.1.1 ity of 3.104.2.7 [place] .3.731140 Medica l .8 [place] 2020-06-04 2020-06-04 Men'S Designer [place] Cardenas 1.2.840.1 [id number] Univers 09:31:58 09:40:12 Visit [facility] 69807.1.1 ity of 3.104.2.7 [place] .3.823819 Medica l .8 [place] 2020-06-04 2020-06-04 Office Ronald [facility] 1.2.388.083 2111 9729 Univers 08:13:41 09:28:25 Visit Santiago [facility] 350.1.13.10 i ty of CL[place]ICS 4[place]2.[place].2.[place] 503.1250520 [facility] 089 [place] 2020-06-04 2020-06-04 Outpatient [facility] [id number] Univers 08:30:00 08:30:00 SANTIAGO barbosa of [facility] 2020-06-04 2020-06-04 Orders Doctor 1.2.840.7 [id number] 079 Univers 00:00:00 00:00:00 Only Unassigned, 67766.1.1 ity of [place] 3.104.2.7 [place] .3.296273 Medica l .8 [place] 2020-05-19 2020-05-19 Telephone [place], 1.2.840.6 [id number] 804 [id number] Univers 00:00:00 00:00:00 Santiago 27918.1.1 ity of 3.104.2.7 [place] .3.455392 Medica l .8 Branch 2020-04-24 2020-04-24 Telephone [place], 1.2.840.2 [id number] 799 [id number] Univers 00:00:00 00:00:00 Santiago 27983.1.1 ity of 3.104.2.7 [place] .3.639416 Medica l .8 [place] 2020-04-14 2020-04-14 Outpatient R [facility]AST, [facility] [id number] Univers 09:00:00 09:00:00 SANTIAGO ity of [facility] 2020-04-14 2020-04-14 Telephone [place], 1.2.840.1 [id number] 797 [id number] Univers 00:00:00 00:00:00 Santiago 67762.1.1 ity of 3.104.2.7 [place] .3.092625 Medica l .8 [place] 2020-03-31 2020-03-31 Outpatient R EAST, [facility] [id number] Univers 08:30:00 08:30:00 SANTIAGO ity of [facility] 2020-03-03 2020-03-03 Outpatient R SELF, [facility] [id number] Univers 08:00:00 08:00:00 GADIEL rodas [facility] 2020-03-03 2020-03-03 Outpatient R SELF, [facility] [id number] Univers 08:00:00 08:00:00 GADIEL vogel f [facility] 2020-03-03 2020-03-03 Travel 1.2.840.1 1.2.548.769 0425 5480 Univers 00:00:00 00:00:00 14758.1.1 350.1.13.10 ity of 3.104.2.7 4.2.7.3.698 [place] .3.358023 084.8 Medica l .8 [place] 2020-02-06 2020-02-06 Telephone [place], 1.2.840.8 [id number] 781 [id number] Univers 00:00:00 00:00:00 Santiago 01461.1.1 ity of 3.104.2.7 [place] .3.048378 Medica l .8 [place] 2020-01-26 2020-01-26 Emergency Caridad, 1.2.840.5 [id number] 779 11099 Univers 10:03:00 13:05:00 Cynise 78992.1.1 ity of 3.104.2.7 [place] .3.951460 Medica l .8 [place] 2020-01-26 2020-01-26 Travel 1.2.840.1 1.2.936.431 9244 0120 Univers 00:00:00 00:00:00 49631.1.1 350.1.13.10 ity of 3.104.2.7 4.2.7.3.698 [place] .3.733315 084.8 Medica l .8 [place] 2020-01-25 2020-01-25 Outpatient [facility] [id number] Univers 08:30:00 08:30:00 SANTIAGO ity of [facility] 2020-01-25 2020-01-25 Telemedici [place], 1.2.840.0 [id number] Univers 07:36:49 08:06:49 ne Visit Santiago 87574.1.1 ity of 3.104.2.7 [place] .3.923113 Medica l .8 [place] 2020-01-16 2020-01-16 Outpatient R EAST, [facility] [id number] Univers 08:00:00 08:00:00 SANTIAGO ity of [facility] 2020-01-16 2020-01-16 Telephone East, 1.2.840.1 [id number] Univers 00:00:00 00:00:00 Santiago 36106.1.1 ity of 3.104.2.7 [place] .3.584767 Medica l .8 [place] 2020-01-14 2020-01-14 Outpatient R SELF, [facility] [id number] Univers 08:00:00 08:00:00 GADIEL maciely o f [facility] 2019-12-31 2019-12-31 Outpatient R SELF, [facility] [id number] Univers 08:45:00 08:45:00 GADIEL familia vogel clark [facility] 2019-10-17 2019-10-17 Outpatient R EAST, [facility] [id number] Univers 08:30:00 08:30:00 SANTIAGO barbosa [facility] 2019-10-12 2019-10-12 Outpatient R EAST, [facility] [id number] Univers 13:00:00 13:00:00 SANTIAGO barbosa [facility] 2019-10-12 2019-10-12 Telemedici [place], 1.2.840.1 [id number] Univers 07:38:30 08:08:30 ne Visit Santiago 33118.1.1 ity of 3.104.2.7 [place] .3.429567 Medica l .8 [place] 2019-10-08 2019-10-08 Outpatient R SELF, [facility] [id number] Univers 10:15:00 10:15:00 GADIEL rodas [facility] 2019-10-03 2019-10-03 Case Assman, 1.2.840.8 [id number] Univers 00:00:00 00:00:00 Management Michael Corbin 44319.1.1 i ty of 3.104.2.7 [place] .3.180125 Medica l .8 [place] 2019-09-27 2019-09-27 Telephone East, 1.2.840.2 [id number] 755 [id number] Univers 00:00:00 00:00:00 Santiago 76151.1.1 ity of 3.104.2.7 [place] .3.414274 Medica l .8 [place] 2019-09-04 2019-09-04 Refill [place], 1.2.840.8 [id number] Univers 00:00:00 00:00:00 Santiago 14513.1.1 ity of 3.104.2.7 [place] .3.068932 Medica l .8 [place] 2019-07-24 2019-07-24 Outpatient R EAST, [facility] [id number] Univers 08:30:00 08:30:00 SANTIAGO barbosa [facility] 2019-07-17 2019-07-17 Outpatient R [facility], [facility] [id number] Univers 10:00:00 10:00:00 SANTIAGO ity of [facility] 2019-06-15 2019-06-15 Telephone East, 1.2.840.5 [id number] [id number] Univers 00:00:00 00:00:00 Santiago 86841.1.1 ity of 3.104.2.7 [place] .3.841355 Medica l .8 [place] 2019-06-13 2019-06-13 Telephone Team, [facility] 1.2.840.7 [id number] Univers 00:00:00 00:00:00 Health 61498.1.1 ity of [place] 3.104.2.7 [place] .3.775962 Medica l .8 [place] 2019-05-10 2019-05-10 Refill Ronald, 1.2.840.9 [id number] 022 Univers 00:00:00 00:00:00 Santiago 87494.1.1 ity of 3.104.2.7 [place] .3.088832 Medica l .8 [place] 2019-05-09 2019-05-09 Refill Ronald, 1.2.840.0 [id number] Univers 00:00:00 00:00:00 Santiago 74864.1.1 ity of 3.104.2.7 [place] .3.731503 Medica l .8 [place] 2019-04-30 2019-04-30 Outpatient R [facility] [id number] Univers 10:15:00 10:33:05 GADIEL barbosa o f [facility] 2019-04-18 2019-04-18 Men'S Designer [place] Cardenas 1.2.840.1 [id number] Univers 10:00:39 10:44:31 Visit [facility] 90283.1.1 ity of 3.104.2.7 [place] .3.318828 Medica l .8 [place] 2019-04-18 2019-04-18 Outpatient R [facility] [id number] Univers 10:00:00 10:44:31 SANTIAGO barbosa [facility] 2019-04-18 2019-04-18 Office Ronald, 1.2.840.0 [id number] 005 Univers 08:27:44 09:53:27 Visit Santiago 72729.1.1 ity of 3.104.2.7 [place] .3.664244 Medica l .8 [place] 2019-04-18 2019-04-18 Orders Doctor 1.2.840.5 [id number] Univers 00:00:00 00:00:00 Only Unassigned, 75157.1.1 ity of [place] 3.104.2.7 [place] .3.610651 Medica l .8 [place] 2019-04-11 2019-04-11 Refill East, 1.2.840.4 [id number] 033 Univers 00:00:00 00:00:00 Santiago 42496.1.1 ity of 3.104.2.7 [place] .3.063422 Medica l .8 [place] 2019-04-09 2019-04-09 Refill East, 1.2.840.1 [id number] 546 Univers 00:00:00 00:00:00 Santiago 72469.1.1 ity of 3.104.2.7 [place] .3.415030 Medica l .8 [place] 2019-04-03 2019-04-03 Telephone Team, [facility] 1.2.840.8 [id number] Univers 00:00:00 00:00:00 Health 80589.1.1 ity of [place] 3.104.2.7 [place] .3.588113 Medica l .8 [place] 2019-03-27 2019-03-27 Telephone Self, 1.2.840.3 [id number] 723 [id number] Univers 00:00:00 00:00:00 Gadiel 03463.1.1 ity of 3.104.2.7 [place] .3.912043 Medica l .8 [place] 2019-01-17 2019-01-17 Office Ronald, 1.2.840.7 [id number] Univers 07:37:21 10:32:51 Visit Santiago 36972.1.1 ity of 3.104.2.7 [place] .3.935522 Medica l .8 [place] 2019-01-04 2019-01-12 Office Eveline Hansen 1.2.840.9 [id number] Univers 11:19:32 11:08:05 Visit Mariela 10382.1.1 ity of 3.104.2.7 [place] .3.259616 Medica l .8 Branch 2019-01-10 2019-01-10 Telephone Arabellatejacharlie, 1.2.840.1 [id number] 709 [id number] Univers 00:00:00 00:00:00 Eladio Inman 80251.1.1 ity of 3.104.2.7 [place] .3.772353 Medica l .8 [place] 2018-12-18 2018-12-18 Office Geraldine, 1.2.840.5 [id number] Univers 08:48:45 09:13:43 Visit Leyda 92325.1.1 it y of 3.104.2.7 [place] .3.126868 Medica l .8 [place] 2018-10-30 2018-10-30 Telephone East, 1.2.840.3 [id number] [id number] Univers 00:00:00 00:00:00 Santiago 28760.1.1 ity of 3.104.2.7 [place] .3.772283 Medica l .8 [place] 2018-10-23 2018-10-23 Orders Doctor 1.2.840.1 [id number] Univers 00:00:00 00:00:00 Only Unassigned, 96143.1.1 ity of [place] 3.104.2.7 [place] .3.457280 Medica l .8 [place] 2018-10-23 2018-10-23 Nurse Selvin, 1.2.840.8 [id number] Univers 00:00:00 00:00:00 Triage Stefanie 48911.1.1 ity of 3.104.2.7 [place] .3.026484 Medica l .8 [place] 2018-10-23 2018-10-23 Telephone Self, 1.2.840.9 [id number] [id number] Univers 00:00:00 00:00:00 Gadiel 22507.1.1 ity of 3.104.2.7 [place] .3.953589 Medica l .8 Branch 2018-10-20 2018-10-20 Telephone Self, 1.2.840.4 [id number] [id number] Univers 00:00:00 00:00:00 Gadiel 44367.1.1 ity of 3.104.2.7 [place] .3.826147 Medica l .8 Branch Results Test Description [...] L [Au tomated message] The system which ge nerated this [...] g/dL 31.6-35.1 L RDW-SD (test code = 26815-0) 50.1 fL 39.0-49.9 H RDW-CV (test code = 788-0) 15.7 % 12.0-15.5 H PLT (test code = 777-3) 112 See_Comment L [Au tomated message] The system which ge nerated this result transmit arpit reference range: 166 - 35 8 10*3/?L. The reference range was not used to interpret th is result as normal/abnormal . MPV (test code = 60927-5) 9.7 fL 9.5-12.9 NRBC/100 WBC (test code = 0.0 See_Comment [ Automated message] The [id number]) system which [employer] nerated this result transmit arpit reference range: 0.0 - 10 .0 /100 WBCs. The reference r abbey was not used to interpr et this result as normal/abnor mal. NRBC x10^3 (test code = See_Comment [Au tomated message] The 3301509862) system which [employer] nerated this result transmit arpit reference range: 10*3/?L. The reference range was not u sed to interpret this result as normal/abnormal . GRAN MAT (NEUT) % (test code 72.1 % = 770-8) IMM GRAN % (test code = 0.20 % 6294731988) LYMPH % (test code = 736-9) 16.1 % MONO % (test code = 5905-5) 10.3 % EOS % (test code = 713-8) 1.1 % BASO % (test code = 706-2) 0.2 % GRAN MAT x10^3(ANC) (test 3.14 10*3/uL 1.88-7.09 code = 8510888924) IMM GRAN x10^3 (test code = 0.00-0.06 3978585481) LYMPH x10^3 (test code = 0.70 10*3/uL 1.32-3.29 L 731-0) MONO x10^3 (test code = 0.45 10*3/uL 0.33-0.92 742-7) EOS x10^3 (test code = 0.05 10*3/uL 0.03-0.39 711-2) BASO x10^3 (test code = 0.01-0.07 704-7) Lab Interpretation (test Abnormal code = 57159-2) [facility]. METABOLIC PANEL (10954)2022-05-06 22:42:55 Test Item Value Reference Range Interpretation Comments NA (test code = 137 mmol/L 135-145 6743767922) K (test code = 3.2 mmol/L 3.5-5.0 L 2345462146) CL (test code = 100 mmol/L 98-108 8773449655) CO2 TOTAL (test code = 23 mmol/L 23-31 3317528096) AGAP (test code = 2-16 8871077777) BUN (test code = 41 mg/dL 7-23 H 9364010694) GLUCOSE (test code = 98 mg/dL 70-110 4886579105) CREATININE (test code = 1.55 mg/dL 0.50-1.04 H 9783373495) TOTAL BILI (test code = 0.8 mg/dL 0.1-1.7 9472122642) CALCIUM (test code = 8.3 mg/dL 8.6-10.6 L 3764439117) T PROTEIN (test code = 6.9 g/dL 6.3-8.2 4539571961) ALBUMIN (test code = 3.9 g/dL 3.5-5.0 1445003938) ALK PHOS (test code = 89 U/L 34-122 1764616158) ALTv (test code = 101 U/L 5-35 H 1742-6) AST(SGOT) (test code = 203 U/L 13-40 H 9529982921) eGFR (test code = mL/min/1.73m2 8581531593) KYLE (test code = KYLE) Association of [...] tests). Lab Interpretation Abnormal (test code = 75798-0) [facility] WITH [id number] 22:33:52 Test Item Value Reference Range Interpretation [...] RDW-SD (test code = 46.3 fL 39.0-49.9 33525-8) RDW-CV (test code = 13.5 % 12.0-15.5 788-0) PLT (test code = See_Comment L [Automated 777-3) message] The sy stem which generated this result transmitted reference range : 166 - 358 10*3/ ?L. The reference r abbey was not used to interpret this result as normal/abnormal . MPV (test code = 9.5 fL 9.5-12.9 91282-4) NRBC/100 WBC (test See_Comment [Automat ed code = 6746229523) message] The system which generated this result transmitted reference range : 0.0 - 10.0 /100 WBCs. The refer ence range was not u sed to interpret th is result as normal/abnormal . NRBC x10^3 (test code See_Comment [Auto mated = 6419111670) message] The s ystem which generated this result transmitted reference range : 10*3/?L. The reference range was not used to interpret this result as normal/abnormal . GRAN MAT (NEUT) % 58.3 % (test code = 770-8) IMM GRAN % (test code 0.80 % = 1109019245) LYMPH % (test code = 28.1 % 736-9) MONO % (test code = 12.0 % 5905-5) EOS % (test code = 0.5 % 713-8) BASO % (test code = 0.3 % 706-2) GRAN MAT x10^3(ANC) 2.29 10*3/uL 1.88-7.09 (test code = 4438472168) IMM GRAN x10^3 (test 0.03 10*3/uL 0.00-0.06 code = 6925881024) LYMPH x10^3 (test code 1.10 10*3/uL 1.32-3.29 L = 731-0) MONO x10^3 (test code 0.47 10*3/uL 0.33-0.92 = 742-7) EOS x10^3 (test code = 0.03-0.39 L 711-2) BASO x10^3 (test code 0.01-0.07 = 704-7) Lab Interpretation Abnormal (test code = 88846-6) [facility] METABOLIC PANEL (NA, K, CL, CO2, GLUCOSE, BUN, CREATININE, CA)2022-04-22 21:43:42 Test Item Value Reference Range Interpretation Comments NA (test code = 142 mmol/L 135-145 5906802110) K (test code = 3.5 mmol/L 3.5-5.0 0522945150) CL (test code = 106 mmol/L 98-108 9130602288) CO2 TOTAL (test code = 26 mmol/L 23-31 7825966457) AGAP (test code = 2-16 9659274664) BUN (test code = 29 mg/dL 7-23 H 5097095725) GLUCOSE (test code = 84 mg/dL 70-110 8687638456) CREATININE (test code = 1.16 mg/dL 0.50-1.04 H 8385924838) CALCIUM (test code = 8.2 mg/dL 8.6-10.6 L 7064771612) eGFR (test code = mL/min/1.73m2 1800861815) KYLE (test code = KYLE) Association of [...] tests). Lab Interpretation Abnormal (test code = 85883-2) [facility] WITH [id number] 21:33:01 Test Item Value Reference Range Interpretation [...] (test code = 50.7 fL 39.0-49.9 H 27634-1) RDW-CV (test code = 14.6 % 12.0-15.5 788-0) PLT (test code = See_Comment L [Automated 777-3) message] The sy stem which generated this result transmitted reference range : 166 - 358 10*3/ ?L. The reference r abbey was not used to interpret this result as normal/abnormal . MPV (test code = 8.8 fL 9.5-12.9 L 38582-4) NRBC/100 WBC (test See_Comment [Automat ed code = 4040092909) message] The system which generated this result transmitted reference range : 0.0 - 10.0 /100 WBCs. The refer ence range was not u sed to interpret th is result as normal/abnormal . NRBC x10^3 (test code See_Comment [Auto mated = 4935050538) message] The s ystem which generated this result transmitted reference range : 10*3/?L. The reference range was not used to interpret this result as normal/abnormal . GRAN MAT (NEUT) % 70.9 % (test code = 770-8) IMM GRAN % (test code 0.50 % = 1884527384) LYMPH % (test code = 17.4 % 736-9) MONO % (test code = 9.0 % 5905-5) EOS % (test code = 1.7 % 713-8) BASO % (test code = 0.5 % 706-2) GRAN MAT x10^3(ANC) 4.60 10*3/uL 1.88-7.09 (test code = 9139572266) IMM GRAN x10^3 (test 0.03 10*3/uL 0.00-0.06 code = 3846007949) LYMPH x10^3 (test code 1.13 10*3/uL 1.32-3.29 L = 731-0) MONO x10^3 (test code 0.58 10*3/uL 0.33-0.92 = 742-7) EOS x10^3 (test code = 0.11 10*3/uL 0.03-0.39 711-2) BASO x10^3 (test code 0.03 10*3/uL 0.01-0.07 = 704-7) Lab Interpretation Abnormal (test code = 43474-2) [facility] CULTURE [id number] 06:01:07 Test Item Value Reference Range Interpretation Comments Blood Culture-Aerobic No organisms No growth Previo us (test code = 56026-7) isolated prelim inary verified result was Culture [...] Culture-Anaerobic isolated preliminar y (test code = 00063-9) verifi ed result was Culture In Progress [...] CDT Lab Interpretation Normal (test code = 43795-5) [facility] CULTURE [id number] 06:01:07 Test Item Value Reference Range Interpretation Comments Blood Culture-Aerobic No organisms No growth Previo us (test code = 03254-2) isolated prelim inary verified result was Culture [...] Culture-Anaerobic isolated preliminar y (test code = 67804-8) verifi ed result was Culture In Progress [...] CDT Lab Interpretation Normal (test code = 27193-4) [facility] [id number] 06:01:07 Test Item Value Reference Range Interpretation Comments Blood Culture-Aerobic No organisms No growth Previo us (test code = 41425-0) isolated prelim inary verified result was Culture [...] Culture-Anaerobic isolated preliminar y (test code = 69842-8) verifi ed result was Culture In Progress [...] CDT Lab Interpretation Normal (test code = 07312-0) [facility] [id number] 10:49:10 Test Item Value Reference Range Interpretation Comments NT-proBNP (test code 2660 pg/mL See_Comment H [Autom ated = 1803868203) message] The system which generated this result transmitted reference range : <=125. The reference range was not used to interpret this result as normal/abnormal . KYLE (test code = KYLE) Biotin has been reported to cause a negative bias, interpret results relative to patient's use of biotin. Lab Interpretation Abnormal (test code = 40251-9) [facility] [id number] 10:49:10 Test Item Value Reference Range Interpretation Comments NT-proBNP (test code 2660 pg/mL See_Comment H [Autom ated = 9809471127) message] The system which generated this result transmitted reference range : <=125. The reference range was not used to interpret this result as normal/abnormal . KYLE (test code = KYLE) Biotin has been reported to cause a negative bias, interpret results relative to patient's use of biotin. Lab Interpretation Abnormal (test code = 25428-9) [facility] (NA, K, CL, CO2, GLUCOSE, BUN, CREATININE, CA)2022-02-15 10:44:07 Test Item Value Reference Range Interpretation Comments NA (test code = 134 mmol/L 135-145 L 9744129672) K (test code = 3.2 mmol/L 3.5-5 L 1898679792) CL (test code = 98 mmol/L 98-108 2590604470) CO2 TOTAL (test code = 27 mmol/L 23-31 6057290187) AGAP (test code = 2-16 7179854840) BUN (test code = 19 mg/dL 7-23 2570164881) GLUCOSE (test code = 102 mg/dL 70-110 3068093897) CREATININE (test code = 0.95 mg/dL 0.5-1.04 2809241206) CALCIUM (test code = 8.5 mg/dL 8.6-10.6 L 0369502630) eGFR (test code = mL/min/1.73m2 9761166528) KYLE (test code = KYLE) Association of [...] tests). Lab Interpretation Abnormal (test code = 17156-6) [facility]2022-09-26 10:44:07 Test Item Value Reference Range Interpretation Comments MAGNESIUM (test code = 9973401259) 1.8 mg/dL 1.7-2.4 Lab Interpretation (test code = Normal 66197-8) [facility]2022-09-26 10:44:07 Test Item Value Reference Range Interpretation Comments MAGNESIUM (test code = 7252477743) 1.8 mg/dL 1.7-2.4 Lab Interpretation (test code = Normal 46264-3) [facility] (NA, K, CL, CO2, GLUCOSE, BUN, CREATININE, CA)2022-02-15 10:44:07 Test Item Value Reference Range Interpretation Comments NA (test code = 134 mmol/L 135-145 L 5250008852) K (test code = 3.2 mmol/L 3.5-5.0 L 1374654583) CL (test code = 98 mmol/L 98-108 3781373335) CO2 TOTAL (test code = 27 mmol/L 23-31 4068384196) AGAP (test code = 2-16 3399571309) BUN (test code = 19 mg/dL 7-23 8034640868) GLUCOSE (test code = 102 mg/dL 70-110 5076059779) CREATININE (test code = 0.95 mg/dL 0.50-1.04 8058458896) CALCIUM (test code = 8.5 mg/dL 8.6-10.6 L 7255216101) eGFR (test code = mL/min/1.73m2 6892090970) KYLE (test code = KYLE) Association of [...] tests). Lab Interpretation Abnormal (test code = 90280-6) [facility] WITH [id number] 10:12:06 Test Item Value Reference Range Interpretation [...] RDW-SD (test code = 47.8 fL 39-49.9 45016-7) RDW-CV (test code = 15.2 % 12-15.5 788-0) PLT (test code = See_Comment L [Automated 777-3) message] The sy stem which generated this result transmitted reference range : 166 - 358 10*3/ ?L. The reference r abbey was not used to interpret this result as normal/abnormal . MPV (test code = 8.9 fL 9.5-12.9 L 86297-8) NRBC/100 WBC (test See_Comment [Automat ed code = 7326313651) message] The system which generated this result transmitted reference range : 0.0 - 10.0 /100 WBCs. The refer ence range was not u sed to interpret th is result as normal/abnormal . NRBC x10^3 (test code See_Comment [Auto mated = 6388024697) message] The s ystem which generated this result transmitted reference range : 10*3/?L. The reference range was not used to interpret this result as normal/abnormal . GRAN MAT (NEUT) % 65.9 % (test code = 770-8) IMM GRAN % (test code 0.30 % = 6294192312) LYMPH % (test code = 21.0 % 736-9) MONO % (test code = 10.1 % 5905-5) EOS % (test code = 2.4 % 713-8) BASO % (test code = 0.3 % 706-2) GRAN MAT x10^3(ANC) 2.49 10*3/uL 1.88-7.09 (test code = 0548020005) IMM GRAN x10^3 (test 0-0.06 code = 9038518143) LYMPH x10^3 (test code 0.79 10*3/uL 1.32-3.29 L = 731-0) MONO x10^3 (test code 0.38 10*3/uL 0.33-0.92 = 742-7) EOS x10^3 (test code = 0.09 10*3/uL 0.03-0.39 711-2) BASO x10^3 (test code 0.01-0.07 = 704-7) Lab Interpretation Abnormal (test code = 06545-2) [facility] WITH [id number] 10:12:06 Test Item Value Reference Range Interpretation [...] RDW-SD (test code = 47.8 fL 39.0-49.9 26867-6) RDW-CV (test code = 15.2 % 12.0-15.5 788-0) PLT (test code = See_Comment L [Automated 777-3) message] The sy stem which generated this result transmitted reference range : 166 - 358 10*3/ ?L. The reference r abbey was not used to interpret this result as normal/abnormal . MPV (test code = 8.9 fL 9.5-12.9 L 18723-1) NRBC/100 WBC (test See_Comment [Automat ed code = 2738818664) message] The system which generated this result transmitted reference range : 0.0 - 10.0 /100 WBCs. The refer ence range was not u sed to interpret th is result as normal/abnormal . NRBC x10^3 (test code See_Comment [Auto mated = 7922040698) message] The s ystem which generated this result transmitted reference range : 10*3/?L. The reference range was not used to interpret this result as normal/abnormal . GRAN MAT (NEUT) % 65.9 % (test code = 770-8) IMM GRAN % (test code 0.30 % = 9526452222) LYMPH % (test code = 21.0 % 736-9) MONO % (test code = 10.1 % 5905-5) EOS % (test code = 2.4 % 713-8) BASO % (test code = 0.3 % 706-2) GRAN MAT x10^3(ANC) 2.49 10*3/uL 1.88-7.09 (test code = 9317573216) IMM GRAN x10^3 (test 0.00-0.06 code = 6859625820) LYMPH x10^3 (test code 0.79 10*3/uL 1.32-3.29 L = 731-0) MONO x10^3 (test code 0.38 10*3/uL 0.33-0.92 = 742-7) EOS x10^3 (test code = 0.09 10*3/uL 0.03-0.39 711-2) BASO x10^3 (test code 0.01-0.07 = 704-7) Lab Interpretation Abnormal (test code = 41719-0) [facility] WITH [id number] 11:18:28 Test Item Value Reference Range Interpretation [...] RDW-SD (test code = 49.5 fL 39-49.9 14920-8) RDW-CV (test code = 15.5 % 12-15.5 788-0) PLT (test code = See_Comment L [Automated 777-3) message] The sy stem which generated this result transmitted reference range : 166 - 358 10*3/ ?L. The reference r abbey was not used to interpret this result as normal/abnormal . MPV (test code = 11.4 fL 9.5-12.9 12545-4) IPF % (test code = 8.7 % 1.3-7.7 H Platelet count 5614302719) measured by fluorescence method. NRBC/100 WBC (test See_Comment [Automat ed code = 9671594075) message] The system which generated this result transmitted reference range : 0.0 - 10.0 /100 WBCs. The refer ence range was not u sed to interpret th is result as normal/abnormal . NRBC x10^3 (test code See_Comment [Auto mated = 4576736436) message] The s ystem which generated this result transmitted reference range : 10*3/?L. The reference range was not used to interpret this result as normal/abnormal . GRAN MAT (NEUT) % 62.0 % (test code = 770-8) IMM GRAN % (test code 0.80 % = 7946701555) LYMPH % (test code = 22.2 % 736-9) MONO % (test code = 9.6 % 5905-5) EOS % (test code = 5.1 % 713-8) BASO % (test code = 0.3 % 706-2) GRAN MAT x10^3(ANC) 2.21 10*3/uL 1.88-7.09 (test code = 5933216227) IMM GRAN x10^3 (test 0.03 10*3/uL 0-0.06 code = 7589039609) LYMPH x10^3 (test code 0.79 10*3/uL 1.32-3.29 L = 731-0) MONO x10^3 (test code 0.34 10*3/uL 0.33-0.92 = 742-7) EOS x10^3 (test code = 0.18 10*3/uL 0.03-0.39 711-2) BASO x10^3 (test code 0.01-0.07 = 704-7) POLYCHROMASIA (test 2+ See_Comment [Automa arpit code = 22567-4) message] The system which generated this result [...] . Lab Interpretation Abnormal (test code = 65810-4) [facility] METABOLIC PANEL (NA, K, CL, CO2, GLUCOSE, BUN, CREATININE, CA)2022-02-13 10:39:07 Test Item Value Reference Range Interpretation Comments NA (test code = 136 mmol/L 135-145 8823344201) K (test code = 4.1 mmol/L 3.5-5 7493832617) CL (test code = 102 mmol/L 98-108 6099516002) CO2 TOTAL (test code = 27 mmol/L 23-31 9762338084) AGAP (test code = 2-16 8546224046) BUN (test code = 22 mg/dL 7-23 7704427035) GLUCOSE (test code = 94 mg/dL 70-110 8719748749) CREATININE (test code = 0.94 mg/dL 0.5-1.04 6511712109) CALCIUM (test code = 8.1 mg/dL 8.6-10.6 L 4183764817) eGFR (test code = mL/min/1.73m2 9698241122) KYLE (test code = KYLE) Association of [...] tests). Lab Interpretation Abnormal (test code = 37949-5) [facility] 01:50:10 Test Item Value Reference Range Interpretation Comments Height (test code = in 2060362114) Weight (test code = lbs 9889940032) Systolic BP (test code mmHg = 6493640833) Diastolic BP (test code mmHg = 2738413992) Heart Rate (test code = bpm 3239372556) BSA (test code = 1.85 m2 4904019895) IVS (test code = 1.22 cm 9504173962) Interventricular Septum 1.22 cm Diastolic Thickness by 2D (test code = 7899024) LVIDD (test code = 5.00 cm 2089214228) Left Ventricular End 117.9 mL Diastolic Volume by Teichholz Method (test code = 6456610) LVPWD (test code = 1.22 cm 2919290784) PW (test code = 1.22 cm 0.6-1.5 3571971924) EF(Teich) (test code = 74.60 % 2046960009) LVIDS (test code = 2.80 cm 3531836799) Left Ventricular End 29.9 mL Systolic Volume by Teichholz Method (test code = 4887408) FS (test code = 44 % 7365064012) EF - 2D (test code = 74.60 % 57777747) LVOT diameter (test 2.16 cm code = 6150136302) LVOT area (test code = 3.70 cm2 2727826893) Ao root diam (test code 3.40 cm = 7083412043) Aortic root (test code 3.4 cm = 6989948294) Ao root annulus (test 3.4 cm code = 7882134615) LA size (test code = 3.4 cm 5582619092) TR Peak Spencer (test code 330.0 cm/s = 2627770351) Triscuspid Valve mmHg Regurgitation Peak Gradient (test code = 3109939204) PV REGURGITATION PEAK mmHg GRADIENT (test code = 6254558869) PI dec slope (test code 137.20 cm/s2 = 1796299944) LAV(MOD-sp4) (test code 102.90 mL = 0795389006) MV Peak E Spencer (test 84.1 cm/s code = 0830426249) MV Peak A Spencer (test 40.1 cm/s code = 8713001929) E/A ratio (test code = ratio 8421851360) MV valve area p 1/2 3.70 cm2 method (test code = 5319989352) MV dec slope (test code 413.00 cm/s2 = 5371025406) MV P1/2t max spencer (test 83.70 cm/s code = 1301633520) MV Prop V (test code = 41.80 cm/s 9632866990) Tapse (test code = 1.83 cm 3267649919) LVOT stroke volume 96.90 cm3 (test code = 9057987781) LVOT peak spencer (test 125.5 cm/s code = 6373680587) LVOT mn grad (test code mmHg = 8259973207) AV LVOT peak gradient mmHg (test code = 2686808062) LVOT peak VTI (test 26.4 cm code = 9977402962) LV V1 mean (test code = 78.10 cm/s 2228366756) Aortic valve mean 103.7 cm/s velocity (test code = 7942700270) Ao peak spencer (test code 165.6 cm/s = 9315799330) Ao VTI (test code = 37.2 cm 6305571321) AV area by cont VTI 2.6 cm2 (test code = 1075920409) AV area peak spencer (test 2.8 cm2 code = 5842089800) Ao max PG (test code = 11.00 mm[Hg] 7899610673) AV peak gradient (test mmHg code = 7747948691) AV valve area (test 2.60 cm2 code = 4065041156) AV mean gradient (test mmHg code = 1342918346) LA Volume Index (BP) 55.2 mL/m2 (test code = 2206870627) LA volume (BP) (test 102.1 mL code = 9451853665) LAV(MOD-sp2) (test code 86.10 mL = 7584473212) A2C EF (test code = 61.20 % 1374636522) EF(sp2-el) (test code = 61.60 % 7279835961) SV(MOD-sp2) (test code 47.10 mL = 8245397255) LV Diastolic Volume 70.7 mL (BP) (test code = 0715214765) A4C EF (test code = 53.00 % 7034938800) EF(MOD-bp) (test code = 56.70 % 5212467177) EF(sp4-el) (test code = 53.90 % 4231836178) LV Systolic Volume (BP) 30.6 mL (test code = 7997211348) SV(MOD-bp) (test code = 40.10 mL 2751626405) SV(MOD-sp4) (test code 32.40 mL = 8126772761) SV(sp4-el) (test code = 33.10 mL 7950060741) EF (test code = 4819044315) Left Ventricular Stroke 40.1 mL Volume by 2-D Biplane-MOD (test code = 6743138) LV Diastolic Volume 38.2 mL/m2 Index (BP) (test code = 4667101011) LV Systolic Volume 16.5 mL/m2 Index (BP) (test code = 1639292198) Radiology Study observation (narrative) (test code = 83926-5) KYLE (test code = KYLE) ?Left?Ventricle: Left [...] wall motion is normal. [facility] [id number] 05:45:01 Test Item Value Reference Interpretation Comments Range TROPONIN I (test See_Comment [Automated code = 9121307437) message] The system which generated this result [...] biotin. Lab Interpretation Normal (test code = 48940-7) [facility] [id number] 05:41:40 Test Item Value Reference Range Interpretation Comments NT-proBNP (test code 4250 pg/mL See_Comment H [Autom ated = 3425574362) message] The system which generated this result transmitted reference range : <=125. The reference range was not used to interpret this result as normal/abnormal . KYLE (test code = KYLE) Biotin has been reported to cause a negative bias, interpret results relative to patient's use of biotin. Lab Interpretation Abnormal (test code = 30977-2) [facility] [id number] 05:35:21 Test Item Value Reference Range Interpretation Comments APTT Patient (test See_Comment [Automat ed code = 3173-2) message] The system which generated this result transmitted reference range : 23 - 38 Seconds . The reference range was not used to interpr et this result as normal/abnormal . KYLE (test code = KYLE) The [facility] patient population mean normal value for aPTT is 30 seconds. Lab Interpretation Normal (test code = 24069-2) [facility] [id number] 05:35:21 Test Item Value Reference Range Interpretation Comments APTT Patient (test See_Comment [Automat ed code = 3173-2) message] The system which generated this result transmitted reference range : 23 - 38 Seconds . The reference range was not used to interpr et this result as normal/abnormal . KYLE (test code = KYLE) The [facility] patient population mean normal value for aPTT is 30 seconds. Lab Interpretation Normal (test code = 46481-0) [facility]roe[facility]HROMBIN TIME / [id number] 05:33:21 Test Item Value Reference Range Interpretation [...] tions. Lab Interpretation (test Normal code = 32901-1) [facility] METABOLIC PANEL (22687)2022-02-11 05:33:21 Test Item Value Reference Range Interpretation Comments NA (test code = 137 mmol/L 135-145 7379884532) K (test code = 4.3 mmol/L 3.5-5 3863393819) CL (test code = 103 mmol/L 98-108 1668820698) CO2 TOTAL (test code = 25 mmol/L 23-31 6067156834) AGAP (test code = 2-16 6899074807) BUN (test code = 19 mg/dL 7-23 1564068772) GLUCOSE (test code = 120 mg/dL 70-110 H 7774513079) CREATININE (test code = 1.15 mg/dL 0.5-1.04 H 3789850755) TOTAL BILI (test code = 0.9 mg/dL 0.1-1.9 4089594459) CALCIUM (test code = 8.9 mg/dL 8.6-10.6 2801315795) T PROTEIN (test code = 6.6 g/dL 6.3-8.2 9926305148) ALBUMIN (test code = 4.0 g/dL 3.5-5 8192553253) ALK PHOS (test code = 73 U/L 34-122 2097124543) ALTv (test code = 18 U/L 5-35 1742-6) AST(SGOT) (test code = 31 U/L 13-40 4357670066) eGFR (test code = mL/min/1.73m2 8053086308) KYLE (test code = KYLE) Association of [...] tests). Lab Interpretation Abnormal (test code = 06091-6) [facility]. METABOLIC PANEL (83846)2022-02-11 05:33:21 Test Item Value Reference Range Interpretation Comments NA (test code = 137 mmol/L 135-145 7574933720) K (test code = 4.3 mmol/L 3.5-5.0 5052056040) CL (test code = 103 mmol/L 98-108 5700376696) CO2 TOTAL (test code = 25 mmol/L 23-31 5099267805) AGAP (test code = 2-16 9102665011) BUN (test code = 19 mg/dL 7-23 3896392549) GLUCOSE (test code = 120 mg/dL 70-110 H 7433124662) CREATININE (test code = 1.15 mg/dL 0.50-1.04 H 8893947813) TOTAL BILI (test code = 0.9 mg/dL 0.1-1.5 0664440849) CALCIUM (test code = 8.9 mg/dL 8.6-10.6 8624730339) T PROTEIN (test code = 6.6 g/dL 6.3-8.2 0476725230) ALBUMIN (test code = 4.0 g/dL 3.5-5.0 8603229480) ALK PHOS (test code = 73 U/L 34-122 7432613269) ALTv (test code = 18 U/L 5-35 1742-6) AST(SGOT) (test code = 31 U/L 13-40 7482531737) eGFR (test code = mL/min/1.73m2 6134796821) KYLE (test code = KYLE) Association of [...] tests). Lab Interpretation Abnormal (test code = 10040-1) [facility] TIME / [id number] 05:33:21 Test Item Value Reference Range Interpretation Comments PROTIME PATIENT (test See_Comment [Auto mated message] code = 5964-2) The system [employer] generated this result transmitted ref erence range: 12.0 - 1 4.7 Seconds. The re ference range was not u sed to interpret this result as normal/abnor mal. INR (test code = 6301-6) Nor mal INR <1.1; Warfarin Therap eutic range 2.0 to 3. 0 or 2.5 to 3.5, dep ending upon the indica tions. Lab Interpretation (test Normal code = 60091-2) [facility] WITH [id number] 05:14:37 Test Item Value Reference Range Interpretation [...] RDW-SD (test code = 47.9 fL 39-49.9 28497-4) RDW-CV (test code = 14.9 % 12-15.5 788-0) PLT (test code = See_Comment L [Automated 777-3) message] The sy stem which generated this result transmitted reference range : 166 - 358 10*3/ ?L. The reference r abbey was not used to interpret this result as normal/abnormal . MPV (test code = 9.1 fL 9.5-12.9 L 54144-4) NRBC/100 WBC (test See_Comment [Automat ed code = 0584620105) message] The system which generated this result transmitted reference range : 0.0 - 10.0 /100 WBCs. The refer ence range was not u sed to interpret th is result as normal/abnormal . NRBC x10^3 (test code See_Comment [Auto mated = 5023976517) message] The s ystem which generated this result transmitted reference range : 10*3/?L. The reference range was not used to interpret this result as normal/abnormal . GRAN MAT (NEUT) % 78.5 % (test code = 770-8) IMM GRAN % (test code 0.20 % = 6172104274) LYMPH % (test code = 11.6 % 736-9) MONO % (test code = 8.4 % 5905-5) EOS % (test code = 1.1 % 713-8) BASO % (test code = 0.2 % 706-2) GRAN MAT x10^3(ANC) 3.45 10*3/uL 1.88-7.09 (test code = 7935680698) IMM GRAN x10^3 (test 0-0.06 code = 7698968624) LYMPH x10^3 (test code 0.51 10*3/uL 1.32-3.29 L = 731-0) MONO x10^3 (test code 0.37 10*3/uL 0.33-0.92 = 742-7) EOS x10^3 (test code = 0.05 10*3/uL 0.03-0.39 711-2) BASO x10^3 (test code 0.01-0.07 = 704-7) Lab Interpretation Abnormal (test code = 92573-9) [facility] Coronavirus 2019 [id number] 18:08:00 Test Item Value Reference Range Interpretation [...] of SARS-CoV-2 RNA usingreal-time (RT) polymerase sedrick soares reaction (PCR) technolog yfor the qualitative det ection of nucleic acids f rom kccBLJX-[id number]-7 v irus and diagnosis of SA RS-CoV-2 virusinfection. It is an Emergency Use Authorization ( EUA) testauthorized by the U.S. FDA. BASIC METABOLIC [id number] 09:37:00 Test Item Value Reference Range Interpretation [...] = 9.0 mg/dL 8.0-10.5 N CA) PROTHROMBIN [id number] 09:32:00 Test Item Value Reference Range Interpretation [...] (to prevent recurrent infar ct). 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 [facility] - XR CHEST 1 [id number] 00:00:00 [facility] : 1955 Sex: F FAX: Carmenza Kelly DO [phone] [place]: St: ADM FAX: Mike Scales MD [phone] FAX: Bahman Chopra [phone] Name: MARJAN FLEMING [facility] : 1955 Age/S: 66/F [address] [place] [address] Unit #: [id number] Loc: KWABENA Bernstein [address] Phys: Bahman Chopra Acct: [id number] Dis Date: Status: ADM IN PHONE #: [phone] Exam Date: 06/17/2021 1320 FAX #: [phone] Reason: WATCHMAN EXAMS: CPT CODE: [id number] XR CHEST 1 V 58764 PROCEDURE INFORMATION: Exam: XR Chest Exam date [...] Chopra Technologist: RT Taylor(R) Trnscrd Date/Time/By: 06/17/2021 (1939) : By:IselaKWL Orig Print D/T: S: 06/17/2021 (7581) PAGE 1 Signed ReportCOVID 19 Asymptomatic IH [id number] 12:29:00 Test Item Value Reference Range Interpretation [...] high or waivedcomplexit y tests. BASIC METABOLIC [id number] 11:37:00 Test Item Value Reference Range Interpretation [...] code = 9.0 mg/dL 8.0-10.5 N CA) [id number] 11:37:00 Test Item Value Reference Range Interpretation Comments PREALBUMIN (test code = PREALB) 24.3 mg/dL 16.0-40.0 N PROTHROMBIN [id number] 11:03:00 Test Item Value Reference Range Interpretation [...] (to prevent recurrent infar ct). CBC W/AUTO [id number] 10:59:00 Test Item Value Reference Range Interpretation [...] 0.0-0.1 N NRBC#) - XR CHEST 2 [id number] 00:00:00 [facility] : 1955 Sex: F FAX: Carmenza Kelly DO [phone] [place]: St: PRE FAX: Mike Scales MD [phone] Name: MARJAN FLEMING [facility] : 1955 Age/S: 66/F [address] [place] [address] Unit #: [id number] Loc: [place] [address] Phys: Mike Lund MD Acct: [id number] Dis Date: [place] [facility] [place] [phone] Exam Date : 06/16/2021 1120 FAX #: [phone] Reason: PREOP EXAMS: CPT CODE: [id number] XR CHEST 2 V 25860 PROCEDURE INFORMATION: Exam: XR Chest Exam date [...] By: [email or web address] Orig Print D/T: S: 06/16/2021 (4370) PAGE 1 Signed ReportGastrointestinal [id number] 04:35:05 Test Item Value Reference Interpretation Comments [...] Rotavirus PCR (test Not Detected code = 7461334) Salmonella PCR (test Not Detected code = [...] PCR Not Detected (test code = 7124) [facility] [id number] 19:30:47 Test Item Value Reference Range Interpretation Comments Case number (test [id number] code = [id number]) Surgical pathology See link below for PDF report (test code = Lab Report 2255) Result status (test This is Supplemental code = [id number]) Report [facility] [id number] [facility]zeotrguNSXYOOTUTE1834-18-21 16:31:00 Test Item Value Reference Range Interpretation Comments POC Activated Clotting Time (test code 153 s = POC Activated Clotting Time) [facility]VyefospDWXFGBSLEX9778-53-08 16:31:00 Test Item Value Reference Range Interpretation Comments POC Activated Clotting Time (test code 153 s = POC Activated Clotting Time) [place] [id number] 16:31:00 Test Item Value Reference Range Interpretation Comments POC Activated Clotting Time (test code 153 s = POC Activated Clotting Time) [place] 864731-04-09 16:31:00 Test Item Value Reference Range Interpretation Comments POC Activated Clotting Time (test code 153 s = POC Activated Clotting Time) [facility] CenterChxzdlbBAWUPKDJSL0087-65-69 16:31:00 Test Item Value Reference Range Interpretation Comments POC Activated Clotting Time (test code 153 s = POC Activated Clotting Time) [facility] CenterFznqyxtHJGWTYAXBA1677-05-08 16:31:00 Test Item Value Reference Range Interpretation Comments POC Activated Clotting Time (test code 153 s = POC Activated Clotting Time) [facility] CenterZpjunksWASUTDHDRA1302-59-76 16:31:00 Test Item Value Reference Range Interpretation Comments POC Activated Clotting Time (test code 153 s = POC Activated Clotting Time) [facility] CenterPqiystbXRMRXSRVDQ2705-41-36 14:37:00 Test Item Value Reference Range Interpretation Comments POC Activated Clotting Time (test code 454 s = POC Activated Clotting Time) [facility] CenterTdxoyarXVLLCJZSAV1746-68-57 14:37:00 Test Item Value Reference Range Interpretation Comments POC Activated Clotting Time (test code 454 s = POC Activated Clotting Time) [facility] CenterOxqhgrpXCPCCTIIKB8195-48-75 14:37:00 Test Item Value Reference Range Interpretation Comments POC Activated Clotting Time (test code 454 s = POC Activated Clotting Time) [facility] CenterSaeavntSQBSNDYAED0756-32-84 14:37:00 Test Item Value Reference Range Interpretation Comments POC Activated Clotting Time (test code 454 s = POC Activated Clotting Time) [facility] CenterRbmsctcVHUSIMMLLG6583-29-59 14:37:00 Test Item Value Reference Range Interpretation Comments POC Activated Clotting Time (test code 454 s = POC Activated Clotting Time) [place] 864731-04-09 14:37:00 Test Item Value Reference Range Interpretation Comments POC Activated Clotting Time (test code 454 s = POC Activated Clotting Time) [facility] CenterDcsosnvBBDWHIGLGN9460-99-51 14:37:00 Test Item Value Reference Range Interpretation Comments POC Activated Clotting Time (test code 454 s = POC Activated Clotting Time) [facility] CenterDznafxePJGQQPNGOQ2984-70-87 14:13:00 Test Item Value Reference Range Interpretation Comments POC Activated Clotting Time (test code 354 s = POC Activated Clotting Time) [facility] CenterIojgwwfNVWYGGPETV8549-02-73 14:13:00 Test Item Value Reference Range Interpretation Comments POC Activated Clotting Time (test code 354 s = POC Activated Clotting Time) [facility] CenterHtlgtnuGVJNWUPSVT1299-59-45 14:13:00 Test Item Value Reference Range Interpretation Comments POC Activated Clotting Time (test code 354 s = POC Activated Clotting Time) [facility] CenterLskwripQYNFSPKVPO2140-42-82 14:13:00 Test Item Value Reference Range Interpretation Comments POC Activated Clotting Time (test code 354 s = POC Activated Clotting Time) [facility] CenterFqlklioIIIOAXTUNP3122-95-05 14:13:00 Test Item Value Reference Range Interpretation Comments POC Activated Clotting Time (test code 354 s = POC Activated Clotting Time) [facility] CenterCluprzlFDFVZDXSUW0861-76-06 14:13:00 Test Item Value Reference Range Interpretation Comments POC Activated Clotting Time (test code 354 s = POC Activated Clotting Time) [facility] CenterUtrqvhwNBNCBYPTQV5369-81-13 14:13:00 Test Item Value Reference Range Interpretation Comments POC Activated Clotting Time (test code 354 s = POC Activated Clotting Time) [facility] MJVFIEY0695-08-41 10:37:00Negative (08/29/20 5:37 AM) [facility] KONQV1793-51-00 10:37:95649Wvyohzmp HermannCHEM PANEL 2020-08-29 10:37:0028[facility] HermannCHEM KXLCU3185-19-64 10:37:001.01[facility] HermannCHEM ZSMHJ9968-14-14 10:37:23460Kwkykghq HermannCHEM QPEUK8091-03-46 10:37:003.8[facility] HermannCHEM QZLSS8088-99-61 10:37:74870Lioscunj HermannCHEM BSSSV4334-82-24 10:37:0028[facility] HermannCHEM JKUBS3363-26-71 10:37:009.8 [facility] HermannCHEM HZONO7557-75-74 10:37:0011.8[facility] HermannCHEM PANEL 2020-08-29 10:37:0059[facility] HermannCHEM QTKLL4411-04-43 10:37:002.9[facility] LxpithrKKOJOFBXMN6649-45-61 10:37:006.8[facility] BfhnznpMGSCWDGTXE0874-39-95 10:37:004.47[facility] UtqctggBPKLZEKPWJ5358-68-07 10:37:0010.6[facility] [place] [facility] HWQCGTWPEJ3531-87-55 10:37:0034.0[facility] QnkbycvVUSVKJGHPV8933-26-44 10:37:00 76.1[facility] AfvdwfzQQHCJYXWYB4717-64-17 10:37:00 Test Item Value Reference Range Interpretation Comments MCH (test code = MCH) 23.8 pg 27.0-31.0 [facility] IlklrhhTXURTMGCLC8638-74-30 10:37:0031.3[facility] HermannHEMATOLOGY 2020-08-29 10:37:0018.2[facility] EwncgakDHCSNTYPJA2046-91-81 10:37:35569Pxfuwxtz OueujruZAOHMEFIAY5035-01-33 10:37:007.5[facility] LtxgohoSVPXIAFAEX4450-33-78 10:37:00 Test Item Value Reference Range Interpretation Comments PT (test code = PT) 12.8 s 12.0-14.7 [facility] LmejijwDOPIXALAAH8551-65-20 10:37:00 Test Item Value Reference Range Interpretation Comments INR (test code = INR) 0.97 1 0.85-1.17 [facility] EbwfvcnPGRVSSRCGA1769-43-68 10:37:00 Test Item Value Reference Range Interpretation Comments PTT (test code = PTT) 25.0 s 22.9-35.8 [facility] NysamcgLKYGHGHYIS2085-93-48 10:37:0070.5[facility] HermannHEMATOLOGY 2020-08-29 10:37:0018.8[facility] TewnkftKFVZCKHGUY0117-02-96 10:37:009.5[facility] ShmdagaGSPEUXSNAA9681-26-81 10:37:000.9[facility] BwczwjwWBVMKALNOV1622-08-15 10:37:000.3[facility] KdjqlyoXZSHNDJZPB9767-25-21 10:37:004.8[facility] WTJZPBPOPL9617-42-19 10:37:001.3[facility] IbwxwwrCMPSVMTOAK1426-64-80 10:37:000.6 [facility] ZwajtoxAHILLLVYMY4130-41-71 10:37:000.1[facility] HermannHEMATOLOGY 2020-08-29 10:37:001+ *ABN*(08/29/20 5:37 AM)[facility] JyiawcmXXCQHJSYTV5550-04-69 10:37:00Not Detected (08/29/20 5:37 AM)[facility] HermannBLOOD BANK RESULTS 2020-08-29 10:37:00Negative (08/29/20 5:37 AM)[facility] HermannCHEM MTFYL4753-54-00 10:37:68162Qoehmcmf HermannCHEM ZDIBZ3152-39-21 10:37:0028[facility] HermannCHEM SIMPD5498-54-95 10:37:001.01[facility] HermannCHEM ESWEB0882-63-64 10:37:64464 [facility] HermannCHEM UDDXP6511-13-50 10:37:003.8[facility] HermannCHEM PANEL 2020-08-29 10:37:08238Vhnyohwe HermannCHEM GEOUL9176-18-80 10:37:0028[facility] HermannCHEM SKUMF0584-68-74 10:37:009.8[facility] HermannCHEM EQXAI8049-53-22 10:37:0011.8[facility] HermannCHEM MAFEY5007-42-61 10:37:0059[facility] HermannCHEM TGMCV5864-66-78 10:37:002.9[facility] OphaeycUFZDATLJVJ9351-76-99 10:37:006.8 [facility] NxxhmmwJODZYNYLMX4205-34-06 10:37:004.47[facility] HermannHEMATOLOGY 2020-08-29 10:37:0010.6[facility] JcbqgskVGLHLEFJAE3832-09-30 10:37:0034.0[facility] OjpthlcRYTPERWODR4409-92-48 10:37:0076.1[facility] CowadiqWJTDILOSNW9260-88-99 10:37:00 Test Item Value Reference Range Interpretation Comments MCH (test code = MCH) 23.8 pg 27.0-31.0 [facility] HwwrxepCWFXGQQZML7913-58-46 10:37:0031.3[facility] HermannHEMATOLOGY 2020-08-29 10:37:0018.2[facility] QtrnvzfTYXJYDYNTJ1436-03-55 10:37:49852Walcsduv YyeykjoURRUIXTSZK4084-92-73 10:37:007.5[facility] DtygnvgQXXYSNPVAF0514-55-09 10:37:00 Test Item Value Reference Range Interpretation Comments PT (test code = PT) 12.8 s 12.0-14.7 [facility] QoltecqFMNWAVCYZY0816-02-14 10:37:00 Test Item Value Reference Range Interpretation Comments INR (test code = INR) 0.97 1 0.85-1.17 [facility] YwdvxbaXCILULMWEG8165-33-28 10:37:00 Test Item Value Reference Range Interpretation Comments PTT (test code = PTT) 25.0 s 22.9-35.8 [facility] AdglaoeHTBGTQSDNX4905-74-39 10:37:0070.5[facility] HermannHEMATOLOGY 2020-08-29 10:37:0018.8[facility] SjromglSQFPHOOQNO9452-70-62 10:37:009.5[facility] BgettjpAKYEKPOYEI3304-53-80 10:37:000.9[facility] XbocgbgHOVUWCTOCV7549-50-79 10:37:000.3[facility] UwyinwaQXEXQRCVAL9335-58-90 10:37:004.8[facility] [place] FMZEMTEFQC1139-17-82 10:37:001.3[facility] BooxaraXLELITHNUB2454-65-48 10:37:000.6 [facility] BjxtaerSVRBMNLNGN2597-51-12 10:37:000.1[facility] HermannHEMATOLOGY 2020-08-29 10:37:001+ *ABN*(08/29/20 5:37 AM)[facility] OlvnvlbSIJAJYARYA0191-44-78 10:37:00Not Detected (08/29/20 5:37 AM)[facility] HermannBLOOD BANK RESULTS 2020-08-29 10:37:00Negative (08/29/20 5:37 AM)[facility] HermannCHEM FHCRG4038-46-03 10:37:81600Rvbrjuch HermannCHEM PCUEB7613-45-22 10:37:0028[facility] HermannCHEM CITFL0207-65-65 10:37:001.01[facility] HermannCHEM ISUYA2495-29-50 10:37:81562 [facility] HermannCHEM ONYKI8886-02-34 10:37:003.8[facility] HermannCHEM PANEL 2020-08-29 10:37:20582Erdkuvah HermannCHEM AZSFQ9147-53-80 10:37:0028[facility] HermannCHEM CTAST3017-95-67 10:37:009.8[facility] HermannCHEM UIVJD8865-73-99 10:37:0011.8[facility] HermannCHEM LVYMX7210-04-69 10:37:0059[facility] HermannCHEM YMSIF8570-63-90 10:37:002.9[facility] DumklscEWUXRUKJYU8040-07-19 10:37:006.8 [facility] MjtwslgNZDYYKJTLD5997-59-77 10:37:004.47[facility] HermannHEMATOLOGY 2020-08-29 10:37:0010.6[facility] GdnyaeoPCQZFEEWDJ2023-43-75 10:37:0034.0[facility] TheywabUHYNUTYDFJ7827-92-84 10:37:0076.1[facility] NackmawUNSTKCUMKV9422-09-63 10:37:00 Test Item Value Reference Range Interpretation Comments MCH (test code = MCH) 23.8 pg 27.0-31.0 [facility] XlvadawOQRIJJCQXD1511-53-12 10:37:0031.3[facility] HermannHEMATOLOGY 2020-08-29 10:37:0018.2[facility] NpmyajwSWJZGOWQVP0898-40-57 10:37:52837Hjrizfgz MrucivdRBDEEXIEPZ7146-69-05 10:37:007.5[facility] JjjfkfzYSRCRYLBVU6463-36-66 10:37:00 Test Item Value Reference Range Interpretation Comments PT (test code = PT) 12.8 s 12.0-14.7 [facility] TagyxxjOPRHPYKGUU6366-27-01 10:37:00 Test Item Value Reference Range Interpretation Comments INR (test code = INR) 0.97 1 0.85-1.17 [facility] WyziaysVYWDXCGVML9425-77-01 10:37:00 Test Item Value Reference Range Interpretation Comments PTT (test code = PTT) 25.0 s 22.9-35.8 [facility] QutkkbeCJNDWUOFWY1149-83-54 10:37:0070.5[facility] HermannHEMATOLOGY 2020-08-29 10:37:0018.8[facility] JzzpyndQCJLFESUAJ7126-00-49 10:37:009.5[facility] GeikonoHYPXREOTHD4756-76-91 10:37:000.9[facility] MsdvrunRDTFHMPXET7322-92-24 10:37:000.3[facility] ZdyfcejSGUYDJDMLB4441-58-34 10:37:004.8[facility] [place] ULOPJWOHJP7438-07-77 10:37:001.3[facility] SgejfpoVTWIJSUXAT3419-59-89 10:37:000.6 [facility] KmavnbjOGVHTRVLCM7170-89-96 10:37:000.1[facility] HermannHEMATOLOGY 2020-08-29 10:37:001+ *ABN*(08/29/20 5:37 AM)[facility] EsqvfwjRXNOLMXLKW7831-44-70 10:37:00Not Detected (08/29/20 5:37 AM)[facility] HermannBLOOD BANK RESULTS 2020-08-29 10:37:00Negative (08/29/20 5:37 AM)[facility] HermannCHEM EFJHD5002-12-07 10:37:89406Rpuaiiwm HermannCHEM QCDUY7115-88-71 10:37:0028[facility] HermannCHEM PEVZV9670-61-35 10:37:001.01[facility] HermannCHEM GXCHD1937-24-04 10:37:95868 [facility] HermannCHEM TREHG9872-40-99 10:37:003.8[facility] HermannCHEM PANEL 2020-08-29 10:37:88849Mmobcrbi HermannCHEM STMRT8186-39-27 10:37:0028[facility] HermannCHEM OBIUJ7679-79-15 10:37:009.8[facility] HermannCHEM ZOPRL8664-73-47 10:37:0011.8[facility] HermannCHEM WNAAR8299-92-50 10:37:0059[facility] HermannCHEM KHSFZ4766-76-06 10:37:002.9[facility] XkxaipiJYKEIZBLWF0101-84-73 10:37:006.8 [facility] VmqbsafHBUCCXKDDT3722-55-99 10:37:004.47[facility] HermannHEMATOLOGY 2020-08-29 10:37:0010.6[facility] IosqkztZVZYEQHZDK8012-57-63 10:37:0034.0[facility] XbbplvoHUDJQBEMEY2112-57-35 10:37:0076.1[facility] YyxxsvtJNOLPEIJHO1428-06-04 10:37:00 Test Item Value Reference Range Interpretation Comments MCH (test code = MCH) 23.8 pg 27.0-31.0 [facility] FxoihqjTQJNHPQYWK9473-98-17 10:37:0031.3[facility] HermannHEMATOLOGY 2020-08-29 10:37:0018.2[facility] PqjfkdgHADHKEXZAI7528-46-38 10:37:42637Clwyxein FrdnhqrUGJPNNIJZB9214-98-85 10:37:007.5[facility] ThuscgqGIMTQZWEHO4114-13-34 10:37:00 Test Item Value Reference Range Interpretation Comments PT (test code = PT) 12.8 s 12.0-14.7 [facility] UsmvlfqYZUTNSYLXK4337-15-89 10:37:00 Test Item Value Reference Range Interpretation Comments INR (test code = INR) 0.97 1 0.85-1.17 [facility] XgbbevcXNAVAALRFX8426-72-98 10:37:00 Test Item Value Reference Range Interpretation Comments PTT (test code = PTT) 25.0 s 22.9-35.8 [facility] AofipcpMPFTWJEENV9634-34-38 10:37:0070.5[facility] HermannHEMATOLOGY 2020-08-29 10:37:0018.8[facility] RkuueekNDAJHDGCAI9694-75-79 10:37:009.5[facility] FnxjewsYDQLJCTBGN7745-55-23 10:37:000.9[facility] YoptxhaSRKOPXGACU1519-62-88 10:37:000.3[facility] AplxncrZMYFXLRZXB6884-30-46 10:37:004.8[facility] [place] PDMBVUILSY4767-22-38 10:37:001.3[facility] OlmruqhDIEIXXHGTC3593-89-00 10:37:000.6 [facility] LtcmpwwWPDBSVQKQQ1100-53-13 10:37:000.1[facility] HermannHEMATOLOGY 2020-08-29 10:37:001+ *ABN*(08/29/20 5:37 AM)[facility] JirncviYIPWAZRKQH3816-53-77 10:37:00Not Detected (08/29/20 5:37 AM)[facility] HermannBLOOD BANK RESULTS 2020-08-29 10:37:00Negative (08/29/20 5:37 AM)[facility] HermannCHEM WJMNG9713-48-00 10:37:05941Knxvnvzo HermannCHEM MYTGG7522-16-06 10:37:0028[facility] HermannCHEM CKMTS5807-88-24 10:37:001.01[facility] HermannCHEM ZFNDN7760-85-24 10:37:94404 [facility] HermannCHEM GUDIH3507-68-49 10:37:003.8[facility] HermannCHEM PANEL 2020-08-29 10:37:18548Gffobpfp HermannCHEM VSXIB6335-34-60 10:37:0028[facility] HermannCHEM QAUZF7234-78-86 10:37:009.8[facility] HermannCHEM MRGCH1391-51-75 10:37:0011.8[facility] HermannCHEM JLXBX2874-38-34 10:37:0059[facility] HermannCHEM NLPWU3646-95-93 10:37:002.9[facility] UijmipzZBUPXBBULB8691-23-67 10:37:006.8 [facility] NrhgilzBBGXGOGESI8777-12-66 10:37:004.47[facility] HermannHEMATOLOGY 2020-08-29 10:37:0010.6[facility] CmcjdogFSFAGLTRIQ6422-06-27 10:37:0034.0[facility] WswvsawBDAINCSRRS0850-03-05 10:37:0076.1[facility] CzgffxqGSKHNGVART6317-43-58 10:37:00 Test Item Value Reference Range Interpretation Comments MCH (test code = MCH) 23.8 pg 27.0-31.0 [facility] FbeyyheWEBMYKWWOD0579-65-15 10:37:0031.3[facility] HermannHEMATOLOGY 2020-08-29 10:37:0018.2[facility] BxlnmbxIQKVNYWJUI4072-98-50 10:37:73587Vcpptdxw VntvdmoKOLILEUCHJ2148-44-71 10:37:007.5[facility] EpwiqirPFWVDEMZCG3798-78-50 10:37:00 Test Item Value Reference Range Interpretation Comments PT (test code = PT) 12.8 s 12.0-14.7 [facility] KgreohuLKHUXEIQLO5949-42-76 10:37:00 Test Item Value Reference Range Interpretation Comments INR (test code = INR) 0.97 1 0.85-1.17 [facility] WzpurktQNXSXJMAQA9972-81-31 10:37:00 Test Item Value Reference Range Interpretation Comments PTT (test code = PTT) 25.0 s 22.9-35.8 [facility] GegcppoJQAGQUTDTV2682-78-06 10:37:0070.5[facility] HermannHEMATOLOGY 2020-08-29 10:37:0018.8[facility] YaolqryORWFSUQIQO4979-90-65 10:37:009.5[facility] QcqrzpgUQXYFFTKCM4242-49-14 10:37:000.9[facility] WaygiqpXDCHNAXYZM8252-56-22 10:37:000.3[facility] EpsyflkLOWTGMGBSW3331-60-79 10:37:004.8[facility] [place] QQKSKFRSRZ9664-52-70 10:37:001.3[facility] LwjihisZCXJRRGGAN3102-42-50 10:37:000.6 [facility] WphcybsWSRVVPJZCJ9470-09-68 10:37:000.1[facility] HermannHEMATOLOGY 2020-08-29 10:37:001+ *ABN*(08/29/20 5:37 AM)[facility] DiwgfjpVLULNHYIQV6512-37-73 10:37:00Not Detected (08/29/20 5:37 AM)[facility] HermannBLOOD BANK RESULTS 2020-08-29 10:37:00Negative (08/29/20 5:37 AM)[facility] HermannCHEM OTXMO1869-82-89 10:37:10593Pxvnnovs HermannCHEM WBIDH1835-88-86 10:37:0028[facility] HermannCHEM COAZD6272-66-17 10:37:001.01[facility] HermannCHEM LOUPX5819-71-48 10:37:94985 [facility] HermannCHEM JVBZK7629-72-57 10:37:003.8[facility] HermannCHEM PANEL 2020-08-29 10:37:92292Obdpfrtr HermannCHEM ZHHJU6564-39-26 10:37:0028[facility] HermannCHEM PMFOX1648-21-01 10:37:009.8[facility] HermannCHEM HFACM0750-17-64 10:37:0011.8[facility] HermannCHEM NOXNE6080-37-01 10:37:0059[facility] HermannCHEM AWUIP2069-18-14 10:37:002.9[facility] AioozezSTTHCNZYWY9296-44-65 10:37:006.8 [facility] AszstbcPDMSMKBODL5136-48-66 10:37:004.47[facility] HermannHEMATOLOGY 2020-08-29 10:37:0010.6[facility] FhcvfmnBZPZUXGQCO7764-70-43 10:37:0034.0[facility] PzhjfzzPRMGHXLZXW1606-35-16 10:37:0076.1[facility] KljpcheHSPBJTHGXX9934-40-67 10:37:00 Test Item Value Reference Range Interpretation Comments MCH (test code = MCH) 23.8 pg 27.0-31.0 [facility] BkzzareLJZPPCAPCM4496-42-92 10:37:0031.3[facility] HermannHEMATOLOGY 2020-08-29 10:37:0018.2[facility] WkmtmvlTZWMJGWYRT4915-48-36 10:37:62098Liabrswt GcnoqxdVXLYKMOIFD2236-55-25 10:37:007.5[facility] PlzbuuaOYJLFWCDRM4758-87-74 10:37:00 Test Item Value Reference Range Interpretation Comments PT (test code = PT) 12.8 s 12.0-14.7 [facility] FpzuoiwJIRIOCMFQW0695-27-05 10:37:00 Test Item Value Reference Range Interpretation Comments INR (test code = INR) 0.97 1 0.85-1.17 [facility] GdwpzigSBYQCMQWLT1572-48-81 10:37:00 Test Item Value Reference Range Interpretation Comments PTT (test code = PTT) 25.0 s 22.9-35.8 [facility] PoewbzvBMPBZGQIQW6023-61-05 10:37:0070.5[facility]annHEMATOLOGY 2020-08-29 10:37:0018.8[facility] BrsucmfMCIGCBIMGB9047-76-53 10:37:009.5[facility] JvfjenoVXDIOGAXBR2097-13-49 10:37:000.9[facility] DeogzlpVSKGKAPPGF7825-82-08 10:37:000.3[facility] DytbomuBQFCJWDJDC6545-40-70 10:37:004.8[facility] [place] RUBRVOBIRH1330-23-15 10:37:001.3[facility] PhmoszlTAJPMGXAPZ9595-96-55 10:37:000.6 [facility] NtvqhdkQVXGWGLMMG8288-29-42 10:37:000.1[facility] HermannHEMATOLOGY 2020-08-29 10:37:001+ *ABN*(08/29/20 5:37 AM)[facility] WmpzadaJMSFUSIHJE2340-57-63 10:37:00Not Detected (08/29/20 5:37 AM)[facility] HermannBLOOD BANK RESULTS 2020-08-29 10:37:00Negative (08/29/20 5:37 AM)[facility] HermannCHEM GUVNF1718-54-80 10:37:74116Agttqsco HermannCHEM FGLJM5575-71-60 10:37:0028[facility] HermannCHEM KXEIQ7211-32-87 10:37:001.01[facility] HermannCHEM CXYYP1264-96-56 10:37:70165 [facility] HermannCHEM XRJGK9746-79-68 10:37:003.8[facility] HermannCHEM PANEL 2020-08-29 10:37:76118Bholjppm HermannCHEM AGRIS5803-42-61 10:37:0028[facility] HermannCHEM DJULC3994-65-21 10:37:009.8[facility] HermannCHEM JMSFI0063-39-77 10:37:0011.8[facility] HermannCHEM ROZXM8195-47-79 10:37:0059[facility] HermannCHEM GDQUK4139-64-69 10:37:002.9[facility] XoavtwhBOFURLXQCI5311-96-92 10:37:006.8 [facility] SsfudreDTLSJBHEFY2908-30-23 10:37:004.47[facility]annHEMATOLOGY 2020-08-29 10:37:0010.6[facility] XakqjgiWCPLDHHXDL3082-67-59 10:37:0034.0[facility] DstdniaVOZUEISGEM8942-21-66 10:37:0076.1[facility] DkiuulxCYAAOOTMUX0938-30-83 10:37:00 Test Item Value Reference Range Interpretation Comments MCH (test code = MCH) 23.8 pg 27.0-31.0 [facility] PqpalgtFMHANDKSBL6072-41-24 10:37:0031.3[facility] HermannHEMATOLOGY 2020-08-29 10:37:0018.2[facility] ZxiqhuaXTALODPKMM3813-88-24 10:37:30914Zctharts EsqycguEJHPGWMVKB2830-91-28 10:37:007.5[facility] UoxyoxeFBCPBPBYYD0858-34-55 10:37:00 Test Item Value Reference Range Interpretation Comments PT (test code = PT) 12.8 s 12.0-14.7 [facility] ElsuumkBRVSPGIFKP7397-65-36 10:37:00 Test Item Value Reference Range Interpretation Comments INR (test code = INR) 0.97 1 0.85-1.17 [facility] YycwppjXYJWDLSLTS8436-00-17 10:37:00 Test Item Value Reference Range Interpretation Comments PTT (test code = PTT) 25.0 s 22.9-35.8 [facility] JfifkzgEZOEHXJKQU1284-38-84 10:37:0070.5[facility] HermannHEMATOLOGY 2020-08-29 10:37:0018.8[facility] WfgncljEWXDBCGWYP0653-95-49 10:37:009.5[facility] OevekrmGGHCVEZKXF6416-11-58 10:37:000.9[facility] QbfnndrJAGCCQEVRH1058-47-20 10:37:000.3[facility] PcjjhpqCNXALDJYXZ4827-89-35 10:37:004.8[facility] [place] ORTTHDWLTR1173-37-21 10:37:001.3[facility] YzxxvokFKJGOZSPGF5166-43-69 10:37:000.6 [facility] KcaqpgyTGYQOLJEFU3152-56-96 10:37:000.1[facility] 2020-08-29 10:37:001+ *ABN*(08/29/20 5:37 AM)[facility] TscdlhhTQGBRDPIRE7944-37-99 10:37:00Not Detected (08/29/20 5:37 AM)[facility]LAMYD[facility], GC, TV,PCR, IN [id number] 15:38:00 Test Item Value Reference Range Interpretation Comments FT (test code = CHTR) Not detected (qualifier Not Detected N value) FT (test code = Not detected (qualifier Not Detected N NGONO) value) FT (test code = TRVG) Not detected (qualifier Not Detected N value) [facility] XWXKOPJPYFP4030-04-09 10:57:00 Test Item Value Reference Range Interpretation Comments Color (test code = UCOLR) Dk. Yellow Clarity (test code = UCLAR) Hazy Glucose (test code = UGLUC) NEGATIVE NEGATIVE N Bilirubin (test code = UBILI) NEGATIVE NEGATIVE N Ketones (test code = UKET) NEGATIVE NEGATIVE N Specific [place] (test code = 1.025 1.005-1.030 A USPGR) [...] N URCRYS) [facility] [place] Notes Date/Time Note Provider Source 2023-01-27 Formatting of this note might be differe nt from the original. Tatyana Hill RN [facility] 18:59:00-00:00 Pt given printed and verbal discharge [...] no apparent distress. Left with . 2023-01-27 [facility] 16:20:34-00:00 Nurse Report Report given to ASHLEY Gandhi. [facility] complaint, assessment findings, and orders reviewed. Plan of care discussed with both nurses. Tatyana Hill RN 2023-01-27 Formatting of this note might be differe nt from the original. Reba Nino RN [facility] 10:45:37-00:00 Pt arrived via [facility] with c/o abd pain and vomiting. Received zofran 4mg IM by ems. 2023-01-17 [facility] 09:44:10-00:00 Marjan Dean is a 67 year old female pt called requesting refill for raltegravir (ISENTRESS) 400 mg tablet emtricitabine-tenofovir alafen (DESCOVY) tablet Please advise [id number] - [place], [place] - [address] [facility] [facility] Electronically signed by Mena Olivarez at 9:46 AM CDT 2021-08-05 [id number] [facility] 14:08:00-00:[address] [place], [place] [id number] PATIENT NAME: MARJAN FLEMING ADMIT DATE: 08/05/21 ACCOUNT NO: [id number] ROOM NO: AGE: 66 REPORT TYPE: eTRANSESOPHAGEAL ECHO REPORT SEX: F ADMITTING PHYSICIAN: ATTENDING PHYSICIAN:Mike Lund MD *[facility]* [address] [place] [id number] Transesophageal Echocardiogram Patient: Mrajan Fleming Study Date: 08/05/2021 BP: 158 / 92 Location: [facility] URN: [id number] : 1955 Age: 66 Height: / Gender: F Weight: / BMI/BSA: / *Ordering Physician: * Mike Lund *Interpreting Physician: * Ashely Mckeon MD *Accordion Tuner: * [place] Interiano Indications: POST WATCHMAN. Study [...] benzocaine spray. A transesophageal probe (SN: [id number]) was inserted by the attending x ray developer without difficulty. L ocation: CV PREP. Patient [...] benzocaine spray. A transeso phageal probe (SN: [id number]) was inserted by the attending cardiolog ist [...] [id number] PATIENT NAME: MARJAN FLEMING 1 2021-06-24 [facility] 11:18:00-00:[address] [place] [address] PATIENT NAME: MARJAN FLEMING ADMIT DATE: 06/17/21 ACCOUNT NO: [id number] ROOM NO: ADDIS AGE: 66 REPORT TYPE: eTRANSESOPHAGEAL ECHO REPORT SEX: F ADMITTING PHYSICIAN:Mike Lund MD ATTENDING PHYSICIAN:Mike Lund MD *[facility]* [address] [place] [address] Transesophageal Echocardiogram for Watchman Patient: Marjan Fleming Study Date: 06/17/2021 BP: Location: [facility] URN: [id number] : 1955 Age: 66 Height: / [...] The [facility] the [facility] in the fasting state.Intravenous access was obtained. Surface E CG leads, blood pressure measurements, and pulse oximetric signals were m onitored. Sedation. Sedation was administered by anesthesiology samreen rodas. Transesophageal echocardiography was performed. A transesophagea l probe was inserted by the anesthesiologist. Images were obtained using a [employer] cardiac ultrasound machine. Location: Catheterization laboratory. Christian woodruff completion: The patient tolerated the procedure well. There were no complications. Findings Conclusions Summary: PATIENT NAME: MARJAN FLEMING 7 1. Study data: Transesophageal Echocardiogram fo marika Wynn. 2. Procedure narrative: Transesophageal echocard iography was performed. A transesophageal probe was inserted by the dayton sthesiologist. Images were obtained using a Prizeo cardiac ultrasound mac dalton. Impressions: Patient with [...] stable. Right groin suture removed by this RECOVERY RN. No infect ion, bleeding, or hematoma. Dermabond applied and intact. Patient was provided with post-Watchman discharg e instructions. Patient is to follow up with PCP and x ray developer in 1 t o 2 weeks post discharge. Patient is to follow up with x ray developer for th e 45-day WESLEY, and for anticoagulation recommendation. Prepared and electronically signed by Ashely Mckeon MD 06/24/2021 11:18 Electronically Signed by Mike Lund MD on at 1118 PATIENT NAME: MARJAN FLEMING 7 2021-06-17 [id number] [facility] 18:10:00-00:[address] [place] [address] PATIENT NAME: MARJAN FLEMING ADMIT DATE: 06/17/21 ACCOUNT NO: [id number] ROOM NO: ADDIS AGE: 66 REPORT TYPE: eECHOCARDIOGRAM REPORT SEX: F ADMITTING PHYSICIAN:Mike Lund MD ATTENDING PHYSICIAN:Mike Lund MD *[facility]* [address] [place] [address] Limited Transthoracic Echocardiogram Patient: Marjan Fleming Study Date: 06/17/2021 BP: 117 / 82 Location: [facility] URN: [id number] 2647 : 1955 Age: 66 Height: 64 in / 162.6 cm Gender: F Weight: 210 lb / 95.5 kg BMI/BSA: 36.1 kg/m 2 / 2.12 m 2 *Ordering Physician: * Bahman Chopra *Interpreting Physician: * Kevin Merino MD *Accordion Tuner: * Tiarra Loja Indications: Post Watchman/Rule out pericardial effusion. Study data: Transthoracic echocardiogram, limite d study. Procedure: Transthoracic echocardiography was performed. Im age quality was adequate. Limited 2D and limited spectral Dopple r. Location: [facility]. Patient status: Outpatient. Study status: [...] fat pad is identified anterior to the h eart. Prepared and electronically signed by Kevin Merino MD 06/17/2021 18:10 Electronically Signed by Kevin Merino MD on 0 06/17/21 at 1810 PATIENT NAME: MARJAN FLEMING 7 2021-06-17 [facility] 11:12:00-00:00 [facility] ([facility]) Discharge Summary REPORT#:[id number] REPORT STATUS: Signed DATE:06/17/21 TIME: 1112 PATIENT: MARJAN FLEMING UNIT #: [id number] ROOM/BED: [place] [id number] : [birth year] AGE: 67 SEX: F ATTEND: René Lund MD ADM AUTHOR: Bahman Chopra * ALL edits or amendments must be made on the el [employer]/computer document * PCP PCP Discharge to: home [...] stable. Right groin suture removed by this RECOVERY RN. No infect ion, bleeding, or hematoma. Dermabond applied and intact. Patient was provided with post-Watchman discharg e instructions. Patient is to follow up with PCP and x ray developer in 1 to 2 we eks post discharge. Patient is to follow up with x ray developer for th e 45-day WESLEY, and for [...] breath, lightheadedness, or dizzi ness to the x ray developer. Dispo: It is medically necessary that patients [...] distress GI: soft, non-tender Extremities: moves all Neuro/GRAVEL MACHINE OPERATOR: alert, oriented X 3 Skin: dry Wound/incision: Location: Right groin suture removed by this RECOVERY RN. No infect ion, bleeding, or hematoma. Dermabond [...] by Mike Lund MD on 07/14 at 0991 [facility] #:[id number] END OF REPORT 2021-06-17 [id number] [facility] 09:43:00-00:[address] [place], [place] [address] PATIENT NAME: MARJAN FLEMING ADMIT DATE: 06/17/21 ACCOUNT NO: [id number] ROOM NO: ADDIS AGE: 66 REPORT TYPE: eELECTROCARDIOGRAM REPORT SEX: F ADMITTING PHYSICIAN:Mike Lund MD ATTENDING PHYSICIAN:Mike Lund MD Order: [id number] Test Reason : S/P WATCHMAN Test Date/Time [...] 1807 PATIENT NAME: MARJAN FLEMING 7 2021-06-17 [id number] [facility] 08:54:00-00:[address] [place] [address] PATIENT NAME: MARJAN FLEMING ADMIT DATE: 06/17/21 ACCOUNT NO: [id number] ROOM NO: ADDIS AGE: 66 REPORT TYPE: CARDIAC CATHETERIZATION REPORT SEX: F ADMITTING PHYSICIAN:Mike Lund MD ATTENDING PHYSICIAN:Mike Lund MD PROCEDURE DATE: 06/17/2021 PROCEDURE PERFORMED: Left atrial appendage closu re using a 24 mm Watchman FLX closure device. ACCESS: Right femoral vein, 16-Tristanian closed wit h [id number] suture. FIREWORKS INSPECTOR: Mike Lund MD. SECONDARY MECHANIC RECOVERY: Kevin Merino MD. COMPLICATIONS: None. BLEEDING: Less [...] I accessed right femo ral vein, placed 8-Tristanian [place] sheath. Subsequently, upgraded to 16-Tristanian sheath and gave a partial dose of heparin, then took the SL1 sheat h into the SVC over a wire with Valliant needle inside, descended under the fluor oscopy [...] I removed the Watchman sheath and the 16-Tristanian sheath and placed [id number] suture for hemostasis, then achieved a good hemo stasis. CONCLUSION: Left atrial appendage closure using a 24 mm Watchman FLX closure PATIENT NAME: MARJAN FLEMING 7 device. Dictated By: Mike Lund MD WT: CATH:GAYLE/RIKY/ALLA Conf#: [id number]/DID#: [id number] Authenticated by Mike Lund MD On 07/01/2021 12:30:01 PM Electronically Signed by Mike Lund MD on at 1230 PATIENT NAME: MARJAN FLEMING 7 2021-06-16 [id number] [facility] 10:36:00-00:[address] [place] [id number] PATIENT NAME: MARJAN FLEMING ADMIT DATE: ACCOUNT NO: [id number] ROOM NO: AGE: 66 REPORT TYPE: eELECTROCARDIOGRAM REPORT SEX: F ADMITTING PHYSICIAN: ATTENDING PHYSICIAN:Mike Lund MD Order: [id number] Test Reason : PREOP Test Date/Time Stamp: [...]
[2023-02-07] MEDS ORDERED: PROMETHAZINE INJ 25 MG/ML AMP ONE (14:43)
[2023-02-07] MEDS ORDERED: Ringers Lactate 1,000 ML IV ONE (14:43)
[2023-02-07] MEDS ORDERED: ONDANSETRON 4 MG/2 ML VIAL ONE (14:43)
[2023-02-07] MEDS ORDERED: KETOROLAC 30 MG/ML INJ ONE (14:43)
[2023-02-07 15:47] LABS: Urine Bilirubin NEGATIVE (Negative); Urine Blood Negative (Negative); Urine Clarity Clear (Clear); Urine Color Colorless (Yellow); Urine Glucose NEGATIVE (Negative); Urine Protein NEGATIVE (Negative); Urine Urobilinogen Normal (Normal); Urine pH 7.5 (5.0-7.0)
[2023-02-07 17:22] LABS: Absolute Lymphocytes (CBC) 0.8 K/uL (0.7-4.9); Hematocrit 29.8 % (36.0-45.0); Lymphocytes % 16.8 % (15.3-44.8); MCV 80.3 fL (80-100); MPV 7.3 fL (7.6-11.3); Platelets 117 thou/uL (152-406); RBC Red Blood Cell Count 3.71 M/uL (3.86-4.86)
[2023-02-07 17:34] LABS: Albumin 3.4 g/dL (3.4-5.0); Bilirubin Total 0.8 mg/dL (0.2-1.0); Potassium 3.4 mEq/L (3.5-5.1); Protein, Total 6.8 g/dL (6.4-8.2)
--- NOTE | 2023-02-07 17:45 | ER ---
Nurse's Notes [facility] Name: Marjan Kolb Age: 68 yrs Sex: Female : 1955 Arrival Date: 02/07/2023 Time: 14:05 Bed 16 Private MD: Diagnosis: Abdominal pain, Generalized;Anemia, unspecified;Essential (primary) hypertension Presentation: 02/07 14:08 Chief complaint: EMS states: c/o LUQ abdominal pain and nausea that started 1 week ago. me1 Coronavirus screen: Vaccine status: Patient reports receiving the 2nd dose of the covid vaccine. nausea. Ebola Screen: No symptoms or risks identified at this time. Risk Assessment: Do you want to hurt yourself or someone else? Patient reports no desire to harm self or others. Onset of symptoms was January 31, 2023. 14:08 Method Of Arrival: EMS: [facility] me1 14:08 Acuity: BLAYNE 3 me1 15:01 Initial Sepsis Screen: Does the patient meet any 2 criteria? No. Patient's initial kc6 sepsis screen is negative. Does the patient have a suspected source of infection? No. Patient's initial sepsis screen is negative. Historical: - Allergies: 14:09 Azithromycin; me1 14:09 Bactrim; me1 14:09 butorphanol; me1 14:09 Fentanyl; me1 14:09 Reglan; me1 14:09 Sulfa (Sulfonamide Antibiotics); me1 14:09 TRIMETHOPRIM; me1 - PMHx: 14:09 angina pectoris; Anxiety; Atrial fibrillation; Bipolar disorder; esophageal varicies; me1 Hepatitis; HIV positive; Hypertensive disorder; Migraine; panic attack; - PSHx: 14:09 Appendectomy; Cholecystectomy; me1 - Immunization history:: Adult Immunizations unknown. - Social history:: Smoking status: Patient/guardian denies using tobacco, but has a distant history of tobacco abuse. Screenin:28 [facility] ED Fall Risk Assessment (Adult) History of falling in the last 3 months, kc6 including since admission No falls in past 3 months (0 pts) Confusion or Disorientation No (0 pts) Intoxicated or Sedated No (0 pts) Impaired Gait No (0 pts) Mobility Assist Device Used No (0 pt) Altered Elimination No (0 pt) Score/Fall Risk Level 0 - 2 = Low Risk. Abuse screen: Denies threats or abuse. Denies injuries from another. Nutritional screening: No deficits noted. Tuberculosis screening: No symptoms or risk factors identified. Assessment: 14:30 General: Appears in no apparent distress. comfortable, Behavior is calm, cooperative, kc6 appropriate for age. Pain: Complains of pain in left upper quadrant and left lower quadrant Pain does not radiate. Neuro: Level of Consciousness is awake, alert, obeys commands, Oriented to person, place, time, situation, Appropriate for age. Cardiovascular: Denies chest pain, Capillary refill < 3 seconds. Respiratory: Airway is patent Trachea midline Respiratory effort is even, unlabored, Respiratory pattern is regular, symmetrical, Denies shortness of breath. GI: Abdomen is distended, Bowel sounds present X 4 quads. Abd is soft X 4 quads Abdomen is tender to palpation in left upper quadrant and left lower quadrant Reports nausea, vomiting, Patient currently denies diarrhea. : No signs and/or symptoms were reported regarding the genitourinary system. EENT: No signs and/or symptoms were reported regarding the EENT system. Derm: No signs and/or symptoms reported regarding the dermatologic system. Skin is intact, is healthy with good turgor, Skin is pink, warm \T\ dry. Musculoskeletal: No signs and/or symptoms reported regarding the musculoskeletal system. Circulation, motion, and sensation intact. Capillary refill < 3 seconds, Range of motion: intact in all extremities. 14:45 Reassessment: ASHLEY Mooney at bedside attempting to start an IV and collect labs. kc6 15:30 Reassessment: Patient appears in no apparent distress at this time. No changes from kc6 previously documented assessment. Patient and/or family updated on plan of care and expected duration. Pain level reassessed. Patient is alert, oriented x 3, equal unlabored respirations, skin warm/dry/pink. 15:32 Reassessment: contacted phlebotomy for assistance with blood work. stated they are on kc6 their way. 16:30 Reassessment: Patient appears in no apparent distress at this time. No changes from kc6 previously documented assessment. Patient and/or family updated on plan of care and expected duration. Pain level reassessed. Patient is alert, oriented x 3, equal unlabored respirations, skin warm/dry/pink. 16:45 Reassessment: pts BP 208/122. denies CP or SOB. Dr. Shah notified. no new orders [facility] received at this time. 17:30 Reassessment: Patient appears in no apparent distress at this time. No changes from [facility] previously documented assessment. Patient and/or family updated on plan of care and expected duration. Pain level reassessed. Patient is alert, oriented x 3, equal unlabored respirations, skin warm/dry/pink. Vital Signs: 14:28 BP 209 / 111; Pulse 71; Resp 19 S; Temp 98.5(O); Pulse Ox 96% on R/A; Weight 86.18 kg kc6 (R); Height 5 ft. 4 in. (R); 16:29 BP 208 / 122; Pulse 69; Resp 16 S; Pulse Ox 93% on R/A; kc6 14:28 Body Mass Index 32.61 (86.18 kg, 162.56 cm) [facility] ED Course: 14:08 Patient arrived in ED. [facility] 14:09 Triage completed. [facility] 14:09 Arm band placed on Patient placed on a stretcher. mo1 14:14 Jose Shah DO is Attending Physician. snw 14:27 Madyson Mills RN is Primary Nurse. [facility] 14:28 Patient has correct armband on for positive identification. Bed in low position. Call [facility] light in reach. Side rails up X2. Client placed on continuous cardiac and pulse oximetry monitoring. NIBP monitoring applied. 15:00 Missed attempt(s): 22 gauge in left upper arm. Bleeding controlled, band aid applied, jl7 catheter tip intact. 15:15 Inserted saline lock: 24 gauge in left ,using aseptic technique. foot, by ASHLEY Mooney. [facility] 15:30 Missed attempt(s): 22 gauge in right upper arm. Bleeding controlled, band aid applied, jl7 catheter tip intact. 16:45 Missed attempt(s): 20 gauge in right upper arm. missed by Dr. Shah. Bleeding jl7 controlled, band aid applied, catheter tip intact. 17:06 Initial lab(s) drawn, by mo, sent to lab. Inserted saline lock: 24 gauge in right jl7 ,using aseptic technique. Shoulder Blood collected. 18:05 No provider procedures requiring assistance completed. IV discontinued, intact, kc bleeding controlled, No redness/swelling at site. Pressure dressing applied. Administered Medications: 14:50 Drug: Promethazine IM 25 mg IM once Route: IM; Site: left deltoid; kc6 17:23 Follow up: Response: No adverse reaction; Nausea is decreased kc6 15:40 Drug: Ketorolac IVP 10 mg 10 mg IVP once {Note: left foot.} Route: IVP; Site: Other; kc6 17:23 Follow up: Response: No adverse reaction; Pain is unchanged, physician notified kc6 15:40 Drug: Ondansetron IVP 4 mg IVP once; over 2 minutes {Note: left foot.} Route: IVP; kc6 Site: Other; 17:23 Follow up: Response: No adverse reaction; Nausea is decreased kc6 15:40 Drug: Lactated Ringers Solution IV 1000 ml IV at bolus bolus {Note: left foot.} Route: kc6 IV; Rate: bolus; Site: Other; 17:58 Follow up: Response: No adverse reaction; IV Status: Completed infusion; IV Intake: kc6 1000ml Medication: 18:05 VIS not applicable for this client. kc6 Intake: 17:58 IV: 1000ml; Total: 1000ml. kc6 Outcome: 17:45 Discharge ordered by MD. ms3 18:05 Discharged to home via wheelchair, kc6 18:05 Condition: improved 18:05 Discharge instructions given to patient, Instructed on discharge instructions, follow up and referral plans. Demonstrated understanding of instructions, follow-up care, 18:06 Patient left the ED. kc6 Signatures: Cristina Mueller, JOSE M-C CLAM BED LABORER-Csnw Jesica Ramos RN RN jl7 Jose Shah DO DO ms3 Madyson Mills RN RN kc6 Shira Solomon RN RN me1
--- NOTE | 2023-02-07 17:45 | EDPHYS ---
Physician Documentation [facility] Name: Marjan Kolb Age: 68 yrs Sex: Female : 1955 Arrival Date: 02/07/2023 Time: 14:05 Bed 16 Private MD: ED Physician Jose Shah HPI: 02/07 14:19 This 68 yrs old Female presents to ER via EMS with complaints of Abdominal Pain. ms3 14:19 68-year-old female with past medical history of angina pectoris, anxiety, atrial ms3 fibrillation, bipolar, hypertension, hepatitis, HIV, migraines presents for chronic abdominal pain. Patient states she was seen in the emergency department on Tuesday for the same symptoms. Patient states the symptoms have been ongoing for 1 week. Patient states the pain is an 8/10 and described as nauseated feeling. Patient denies alleviating or inciting factors.. Historical: - Allergies: 14:09 Azithromycin; me1 14:09 Bactrim; me1 14:09 butorphanol; me1 14:09 Fentanyl; me1 14:09 Reglan; me1 14:09 Sulfa (Sulfonamide Antibiotics); me1 14:09 TRIMETHOPRIM; me1 - PMHx: 14:09 angina pectoris; Anxiety; Atrial fibrillation; Bipolar disorder; esophageal varicies; me1 Hepatitis; HIV positive; Hypertensive disorder; Migraine; panic attack; - PSHx: 14:09 Appendectomy; Cholecystectomy; me1 - Immunization history:: Adult Immunizations unknown. - Social history:: Smoking status: Patient/guardian denies using tobacco, but has a distant history of tobacco abuse. ROS: 14:19 Constitutional: Negative for fever, and chills. Neck: Negative for injury, pain, and ms3 swelling, Cardiovascular: Negative for chest pain, and palpitations. Respiratory: Negative for shortness of breath, cough, wheezing, and pleuritic chest pain, 14:19 MS/Extremity: Negative for injury and deformity, Skin: Negative for injury, rash, and discoloration, 14:19 Abdomen/GI: Positive for abdominal pain, nausea and vomiting, 14:19 All other systems are negative, Exam: 14:19 Constitutional: This is a well developed, well nourished patient who is awake, alert, ms3 and in no acute distress. Head/Face: Normocephalic, atraumatic. Chest/axilla: Normal chest wall appearance and motion. Nontender with no deformity. Cardiovascular: Regular rate and rhythm with a normal S1 and S2. No gallops, murmurs, or rubs. Normal PMI, no JVD. No pulse deficits. Respiratory: Lungs have equal breath sounds bilaterally, clear to auscultation and percussion. No rales, rhonchi or wheezes noted. No increased work of breathing, no retractions or nasal flaring. Skin: Warm, dry with normal turgor. Normal color with no rashes, no lesions, and no evidence of cellulitis. MS/ Extremity: Pulses equal, no cyanosis. Neurovascular intact. Full, normal range of motion. Neuro: Awake and alert, GCS 15, oriented to person, place, time, and situation. Cranial nerves II-XII grossly intact. Motor strength 5/5 in all extremities. Sensory grossly intact. Cerebellar exam normal. Normal gait. Psych: Awake, alert, with orientation to person, place and time. Behavior, mood, and affect are within normal limits. 14:19 Abdomen/GI: Inspection: abdomen appears normal, Bowel sounds: normal, Palpation: mild abdominal tenderness, in all quadrants, Vital Signs: 14:28 BP 209 / 111; Pulse 71; Resp 19 S; Temp 98.5(O); Pulse Ox 96% on R/A; Weight 86.18 kg kc6 (R); Height 5 ft. 4 in. (R); 16:29 BP 208 / 122; Pulse 69; Resp 16 S; Pulse Ox 93% on R/A; kc6 14:28 Body Mass Index 32.61 (86.18 kg, 162.56 cm) kc6 MDM: 14:14 Patient medically screened. snw 14:19 Differential diagnosis: gastritis, non-specific abd pain. ms3 17:45 Data reviewed: vital signs, nurses notes, lab test result(s), and as a result, I will ms3 discharge patient. Consideration of Admission/Observation Escalation of care including admission/observation considered. Labs reassuring. I considered the following discharge prescriptions or medication management in the emergency department Medications were administered in the Emergency Department. See MAR. Test considered but Not performed: CT: Patient states this pain is classic of her previous ED visits. Patient labs reassuring. Historians other than the Patient: EMS: [facility]. Care significantly affected by the following chronic conditions: Hypertension, Cancer, Liver Disease. Counseling: I had a detailed discussion with the patient and/or guardian regarding the historical points, exam findings, and any diagnostic results supporting the discharge/admit diagnosis, lab results, the need for outpatient follow up, to return to the emergency department if symptoms worsen or persist or if there are any questions or concerns that arise at home. Response to treatment: the patient's symptoms have markedly improved after treatment, and as a result, I will discharge patient. Special discussion: Based on the patient's Hx, exam, and Dx evaluation, there is no indication for emergent surgery or inpatient Tx. It is understood by the patient/guardian that if the Sx's persist or worsen they need to return immediately for re-evaluation. ED course: Discussed labs and physical exam findings with patient. Patient to follow-up with primary care physician in 2 to 3 days. Patient understands and agrees with plan. All questions were answered. Return precautions discussed include worsening symptoms, or any other concerns. 02/07 14:18 Order name: CBC with Diff; Complete Time: 17:26 ms3 02/07 14:18 Order name: CMP; Complete Time: 17:40 ms3 02/07 14:18 Order name: Urinalysis w/ reflexes; Complete Time: 16:08 ms3 Administered Medications: 14:50 Drug: Promethazine IM 25 mg IM once Route: IM; Site: left deltoid; kc6 17:23 Follow up: Response: No adverse reaction; Nausea is decreased kc6 15:40 Drug: Ketorolac IVP 10 mg 10 mg IVP once {Note: left foot.} Route: IVP; Site: Other; kc6 17:23 Follow up: Response: No adverse reaction; Pain is unchanged, physician notified kc6 15:40 Drug: Ondansetron IVP 4 mg IVP once; over 2 minutes {Note: left foot.} Route: IVP; kc6 Site: Other; 17:23 Follow up: Response: No adverse reaction; Nausea is decreased kc6 15:40 Drug: Lactated Ringers Solution IV 1000 ml IV at bolus bolus {Note: left foot.} Route: kc6 IV; Rate: bolus; Site: Other; 17:58 Follow up: Response: No adverse reaction; IV Status: Completed infusion; IV Intake: kc6 1000ml Disposition Summary: 02/07/23 17:45 Discharge Ordered Notes: Location: Home ms3 Condition: Stable ms3 Diagnosis - Abdominal pain, Generalized ms3 - Anemia, unspecified ms3 - Essential (primary) hypertension ms3 Followup: ms3 - With: Private Physician - When: 2 - 3 days - Reason: Recheck today's complaints Discharge Instructions: - Discharge Summary Sheet ms3 - Abdominal Pain, Adult ms3 - Anemia ms3 - Hypertension, Adult ms3 - DASH Eating Plan ms3 Forms: - Medication Reconciliation Form ms3 - Thank You Letter ms3 - Antibiotic Education ms3 - Prescription Opioid Use ms3 - Patient Portal Instructions ms3 - Leadership Thank You Letter ms3 Signatures: Dispatcher [employer] Cristina James FNP-C DEVELOPER [employer]-Csnw Jose Shah DO DO ms3 Madyson Mills, RN RN kc6 Shira Solomon RN RN me1
[2023-02-07 19:33] VITALS: BP 208/122; O2SAT 93
[2023-02-07 19:39] VITALS: TEMP 98.5
== END 2023-02-07 18:06 | disposition home or self-care (01) ==
LOC: ER 14:05
DX: R10.84 Generalized abdominal pain (principal); D64.9 Anemia, unspecified; I10 Essential (primary) hypertension; Z21 Asymptomatic human immunodeficiency virus [HIV] infection status; Z88.1 Allergy status to other antibiotic agents; Z88.2 Allergy status to sulfonamides; Z88.5 Allergy status to narcotic agent; Z88.8 Allergy status to other drugs, medicaments and biological substances
CPT/HCPCS: 85025; 36415; 81003; 80053; J2550; J2405; J7120

== ENCOUNTER 2023-02-10 19:05 | Emergency (ER) | payer OTHER ==
--- OUTSIDE RECORDS SUMMARY | 2023-02-10 19:35 | XMS REPORT | Continuity of Care Document ---
:1955 Author Organization [facility] t Address [address] [facility]. [address]. [address] [place] [address] Support Name Relationship Address Phone UNK, UNK SELF . [phone] . UNK, UNK SELF . [phone] . RABIA MUNIZ DA X [phone] . [place] [address] NONE, GIVEN OT X [phone] [place] [address] MATHEUS MUNIZ Unavailable [address] [place] [address] BHARAT DEAN SP Unavailable JOSE MUNIZ CH [address] [place] [address] Bharat Dean Spouse [address] [place] [address] Jose Dean Daughter Unavailable [phone] Jose Muniz Child [address] [place] [place] [address] CortesDarrele Spouse [address] [place] [address] Cortes, Bharat Spouse [address] [facility] [address] [place] [address] JOSE MUNIZ Relative [address] [place] [address] DARREL DEANE Spouse [address] [place] [address] BHARAT DEAN RAY X [address] [facility] [address] [place] [address] Ray Bharat Dean Spouse [address] [facility] [address] [phone] [place] [address] Care Team Providers Name Role Phone Urmila Rahman Primary Care Physician ELAN LIRA Attending Clinician Unavailable BEVERLY LAYTON Attending Clinician Unavailable SANTIAGO CARDENAS Attending Clinician Unavailable Bill COLES Attending Clinician Unavailable Bill Rose Attending Clinician Santiago Sanchez Attending Clinician HOME MATTHEWS Attending Clinician Unavailable Home Santamaria B Attending Clinician THERESA HICKMAN Attending Clinician Unavailable Theresa Hickman DO Attending Clinician ANETTE OLEA Attending Clinician Unavailable Anette Olea MD Attending Clinician PAULETTE GRAY Attending Clinician Unavailable Paulette Galvan Attending Clinician UNKNOWN, ATTENDING Attending Clinician Unavailable Robbi Bal Attending Clinician [facility] Attending Clinician Unavailable Stevo RAMIREZ, Isaias Arredondo Attending Clinician Unavailable TOMY MARIE Attending Clinician Unavailable Reilly Means MD Attending Clinician Ofe Shields MD Attending Clinician Tomy Marie MD Attending Clinician Doctor Unassigned, [place] Attending Clinician Unavailable CHARITY MCALLISTER Attending Clinician Unavailable Charity Mcallister MD Attending Clinician GADIEL KOEHLER Attending Clinician Unavailable Mike Lund Attending Clinician Unavailable NIKOLAI REEVES Attending Clinician Unavailable Eliseo Arce MD Attending Clinician Carol Ann IZQUIERDO, Sarai Lieberman Attending Clinician [phone] Ashly Pelletier MA Attending Clinician Unavailable Dagoberto Bass MD Attending Clinician [place] Evangelista Attending Clinician Lab, Adc Fam Pob I Attending Clinician Unavailable Clark SANCHEZ, Monica Attending Clinician Unavailable Agustina Ortiz MA Attending Clinician Unavailable Andrez RAMIREZ, Rody Attending Clinician Unavailable Remigio JENKINS, Kirit Barnes Attending Clinician HEMATPOMILTON HILLJENSEN Attending Clinician Unavailable Caridad SALGUERO, Gloria Attending Clinician Xiao RN, Michael Corbin Attending Clinician Unavailable [facility] Attending Clinician UnavailDO PORSHA Newell Attending Clinician Unavailable Rodo JENKINS, Gadiel Attending Clinician Tyrone JENKINS, Eveline Sierra Attending Clinician Stanislav RAMIREZ, Eladio Inman Attending Clinician Unavailable Geraldine SALGUERO, Leyda Attending Clinician [phone] Selvin RAMIREZ, Stefanie Attending Clinician Unavailable Bill COLES Admitting Clinician Unavailable HOME MATTHEWS Admitting Clinician Unavailable ANETTE OLEA Admitting Clinician Unavailable TOMY MARIE Admitting Clinician Unavailable Becca JENKINS, Tomy Admitting Clinician RahmanLele bird Admitting Clinician Unavailable Mike Lund Admitting Clinician Unavailable ELISEO ARCE Admitting Clinician Unavailable DO PORSHA STREETER Admitting Clinician Unavailable Payers Payer Name Policy Type Policy Number Effective Date Expiration Date S gabino [facility] COMMUNITY PLAN [id number] 2012 STAR PLUS OON 00:00:00 [facility] [id number] 2019 DUAL COMPLETE HMO 00:00:00 [facility] STAR [id number] 2019 PLUS 00:00:00 [facility] [id number] 2019 [facility] [place] STAR 00:00:00 [employer] MEDICARE ADV [id number] 2019 2019 00:00:00 00:00:00 Problems Condition Condition Condition Status Onset Resolution Last Treating Co mments Source Name Details Category Date Date Treatment Clinician Date Dyspnea, Dyspnea, Disease Active Unive rs unspecifie unspecifie 02-11 it y of d type d type 00:00: [address] Gastropare Gastropare Disease Active Overview : Methodi sis sis 4-[address] 00:[facility] note l might be different from the original. Added automatic ally from request for surgery [id number] Dysphagia Dysphagia Disease Active Overview: Methodi 4-[address] 00:00: [facility] this [facility] 00 note l might be different from the original. 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 00:00: [place] [...] N/V [facility] hoxazole - Clear 00:00: [facility] trimetho DA Active SV [facility] prim - Clear 00:00: [facility] codeine DA Active SV N/V [facility] - Clear 00:00: [facility] Metoclop Propensi Active [place] ramide ty to 7 Health adverse 00:00: reaction 00 s BUTORPHA DRUG Active Unknown-Cmnt Un matt NOL INGREDI 11-25 ity of 00:00: [place] [facility] Butorpha Drug Active Unknown - [...] DRUG Active High Hives 2017- Univers INGREDI 2- ity of 00:00: Medical Branch TRIMETHO DRUG [...] Unknown Other UT to 2 reaction( Health substan 00:00: s): e 00 HivesUnkn own reactionU nknown reactionU nknown reactionU nknown reactionU nknown reaction Metoclop Propensi Active Method i ramide ty to 09-23 st Hcl adverse 00:00: Hospita reaction 00 l s to drug METOCLOP DRUG Active Unknown-Cmnt Un matt RAMIDE INGREDI 05-28 ity of 00:00: [place] 00 Medical Branch [...] 00 Medical Branch Butorpha Propensi Active Hallucinatio 2010- Univers nol ty to ns 2-14 ity [...] Source Natural father Diabetes [facility] Natural father Other - see comments [facility] Natural father Coronary Heart [facility] Disease [facility] Natural [facility] Hy[facility] father [facility] Natural mother Gnosticism Hospital Social History Social Habit Start Date Stop Date Quantity Comments Source Gender identity Universit y [facility] History SDOH Gnosticism Alcohol Frequency Hospita l History SDOH Gnosticism Alcohol Std Drinks Hospit al History SDCO Gnosticism Alcohol Binge Hospital Sexual orientation [facility] History of Social 2022-08-26 2022-08-[address] function 00:00:00 00:00:00 Hospital Exposure to 2022-04-30 2022-05-10 Yes University of SARS-CoV-2 (event) 00:00:00 10:25:00 [facility] Tobacco use and 2022-02-11 2022-02-11 Former smokeless Uni versity of exposure 00:00:00 00:00:00 tobacco user [facility] Tobacco Comment 2022-02-11 2022-02-11 Smokes approx 1-2 Un iversity of 00:00:00 00:00:00 cigarettes per [facility] day when she Branch smokes Alcohol intake 2020-12-08 2020-12-08 Current drinker [facility] dist 00:00:00 00:00:00 of [facility] (finding) Cigarettes smoked 2020-09-05 2020-09-[address] current (pack per 00:00:00 00:00:00 Hospita l day) - Reported Cigarette 2020-09-05 2020-09-05 Gnosticism pack-years 00:00:00 00:00:00 Hospital Alcohol Comment 2016-09-23 2016-09-23 rare Gnosticism 00:00:00 00:00:00 Hospital History of tobacco 2011-09-29 User of smokeless University of use 00:00:00 tobacco [facility] Sex Ass[birth year] At [birth year] [facility] 00:00:00 00:00:00 Smoking Status Start Date Stop Date Source Ex-smoker 2022-02-11 00:00:00 2022-02-11 00:00:00 [facility] Medical Branch Medications Ordered Filled Start Stop Current Ordering Indication Dosage Frequency Signature Comments Components Source Medication Medication Date Date Medication? Clinician (SIG) Name Name ondansetron 0 2022- No 4mg 4 mg, Slow Univers (ZOFRAN 01-28 IV Push, ity of (PF)) 00:15: 23:13 ONCE, 1 [place] injection 4 00 :00 dose, On Medi porfirio mg [facility] 01/27/23 Branch at 1915, JOE KCL 2022-2022- No 40meq 40 mEq, Univers (KLOR-CON 01-28 Oral, ity of M20) tablet 00:15: 23:13 [place]CE[place] 1 [place] 40 mEq 00 :00 dose, On [facility] 01/27/23 Branch at 191, Routine dicyclomine 2022- No 20mg 20 mg, Uni vers (BENTYL) 01-28 Oral, ity of tablet 20 00:15: 23:13 ONCE, 1 [place] mg 00 :00 dose, On [facility] 01/27/23 Branch at 1915, Routine NaCl 0.9% 2022- No 1000mL at 999 Uni vers (NS) bolus 01-27 mL/hr, ity of infusion 23:00: 23:59 1,000 mL, [place] 1,000 mL 00 :00 IV Medical Infusion, Branch ONCE, 1 dose, On [facility] 01/27/23 at 1800, STAT ondansetron 2022- No 4mg 4 mg, Slow Univers (ZOFRAN 01-27 IV Push, ity of (PF)) 21:00: 21:10 ONCE, 1 [place] injection 4 00 :00 dose, On Medi porfirio mg [facility] 01/27/23 Branch at 1600, JOE morpHINE (4 2022- No 4mg 4 mg, Slow Univers mg/mL) 01-27 IV Push, ity of injection 4 21:00: 21:15 ONCE, 1 [place] mg 00 :00 dose, On [facility] 01/27/23 Branch at 1600, STAT iopamidol 202-0 2022- No [id number] 70mL 70 mL, U nivers (ISOVUE 01-27 Intravenou ity o f 370-500 mL) 20:44: 20:45 s, ONCE, 1 [place] injection 00 :00 dose, On Medica l 70 mL [facility] 01/27/23 Branch at 1600, Routine hydralAZINE 0 2022- No 10mg 10 mg, Uni vers (APRESOLINE 01-27 Slow IV ity of ) injection 20:00: 21:10 [place] 10 mg 00 :00 ONCE, 1 Medical dose, On Branch [place] 01/27/23 at 1500, JOE ondansetron 0 Yes [id number] 4mg Take 1 Univers 4 mg - tablet by ity of disintegrat 00:00: mouth [place] ing tablet 00 every 8 Medica l (eight) Branch hours as needed for Nausea and Vomiting (N/V). dicyclomine 0 Yes [id number] 20mg Take 1 Univers 20 mg - tablet by ity of tablet 00:00: mouth 4 [place] 00 (four) Medical times Branch daily. emtricitabi 2022-0 Yes [id number] Take one Univers ne-tenofovi 6-12 po daily ity of r alafen 00:00: [place] (DESCOVY) 00 Medical tablet Branch raltegravir 0 Yes [id number] 400mg Take 1 Univers (ISENTRESS) 6-12 tablet by ity of 400 mg 00:00: mouth in [place] tablet 00 the Medical morning Branch and 1 tablet in the evening. emtricitabi 2022-0 Yes [id number] Take one Univers ne-tenofovi 6-12 po daily ity of r alafen 00:00: [place] (DESCOVY) 00 Medical tablet Branch raltegravir 0 Yes [id number] 400mg Take 1 Univers (ISENTRESS) 6-12 tablet by ity of 400 mg 00:00: mouth in [place] tablet 00 the Medical morning Branch and 1 tablet in the evening. emtricitabi 2022-0 Yes [id number] Take one Univers ne-tenofovi 6-12 po daily ity of r alafen 00:00: [place] (DESCOVY) 00 Medical tablet Branch raltegravir 0 Yes [id number] 400mg Take 1 Univers (ISENTRESS) 6-12 tablet by ity of 400 mg 00:00: mouth in [place] tablet 00 the Medical morning Branch and 1 tablet in the evening. DESCOVY 0 Yes [id number] Take one Univers tablet 5-08 po daily ity of 00:00: [place] 00 Medical Branch raltegravir 2022-0 Yes [id number] 400mg Take 1 Univers (ISENTRESS) 5-08 tablet by ity of 400 mg 00:00: mouth in [place] tablet 00 the Medical morning Branch and 1 tablet in the evening. DESCOVY 2022- No [id number] Take one Univers tablet 5-08 -12 po daily ity of 00:00: 00:00 [place] 00 :00 Medical Branch raltegravir 0 2022- No [id number] 400mg Take 1 Univers (ISENTRESS) 5-08 -12 tablet by it y of 400 mg 00:00: 00:00 mouth in [place] tablet 00 :00 the Medical morning Branch and 1 tablet in the evening. emtricitabi 0 Yes [id number] Take one Univers ne-tenofovi 4-04 po daily ity of r alafen 00:00: [place] (DESCOVY) 00 Medical tablet Branch emtricitabi 0 Yes [id number] Take one Univers ne-tenofovi 4-04 po daily ity of r alafen 00:00: [place] (DESCOVY) 00 Medical tablet Branch emtricitabi 0 2022- No [id number] Take one Univers ne-tenofovi 4-04 05-08 po [...] ity of (MAG-OX 20:00: 19:37 ONCE, 1 [place] 400) tablet 00 :00 dose, On Medi porfirio [address] [facility] 05/10/22 at 1400, Routine KCL 2021-05 No 40meq 40 mEq, Univers (KLOR-CON 07-11 Oral, ity of M20) tablet 19:15: 19:37 ONCE, 1 [place] 40 mEq 00 :00 dose, On Medical [facility] 05/10/22 at 1315, JOE hydralAZINE 2021-05 No 10mg 10 mg, Uni vers (APRESOLINE 07-11 Slow IV ity of ) injection 18:45: 18:42 [place], [place] 10 mg 00 :00 ONCE, 1 Medical dose, On [facility] 05/10/22 at 1245, JOE NaCl 0.9% 2021-05 1000mL at 999 Uni vers (NS) bolus 07-11 mL/hr, ity of infusion 17:45: 20:00 1,000 mL, [place] 1,000 mL 00 :00 IV Medical Infusion, Branch ONCE, 1 dose, On [facility] 05/10/22 at 1145, JOE cefpodoxime 2021-05- No [id number] 100mg Take 1 Univers 100 mg 2-17 12-25 tablet by ity of tablet 00:00: 05:59 mouth in [place] 00 :00 [facility] and 1 tablet in the evening. Do all this for 7 days. cefpodoxime 2021-05- No [id number] 100mg Take 1 Univers 100 mg 2-17 12-25 tablet by ity of tablet 00:00: 05:59 mouth in [place] 00 :00 [facility] and 1 tablet in the evening. Do all this for 7 days. cefpodoxime 2021-05- No [id number] 100mg Take 1 Univers 100 mg 2-17 12-25 tablet by ity of tablet 00:00: 05:59 mouth in [place] 00 :00 [facility] and 1 tablet in the evening. Do all this for 7 days. butalbital- 2021-05- No 1{tbl} 1 tablet, Univers acetaminoph 07-08- Oral, ity of en-caff 00:15: 23:19 ONCE, [...] 05/06/22 at 1515, JOE ondansetron 2021-05 Yes [id number] 1-2 U nivers 4 mg tablet 2-15 tablets ity o f 00:00: every 8 [place] 00 hours as Medical needed for Branch nausea benzonatate 2021-05 Yes [id number] 200mg Take 1 Univers 200 mg 2-15 capsule by ity of capsule 00:00: mouth 3 [place] 00 (three) Medical times Branch daily as needed for Cough. albuterol 2021-05 Yes [id number] 2{puff} Inhale 2 Univers 90 2-15 Puffs ity of mcg/actuati 00:00: every 4 [place] on inhaler 00 (four) Medical hours as Branch needed for Wheezing or Shortness of Breath. butalbital- 2021-05 Yes [id number] 1{tbl} Take 1 Univers acetaminoph 2-15 tablet by ity of en-caff 00:00: mouth [place] 50-325-40 00 every 4 Medical mg tablet (four) Branch hours as needed (headache) . ondansetron 2021-05 Yes [id number] 1-2 U nivers 4 mg tablet 2-15 tablets ity o f 00:00: every 8 [place] 00 hours as Medical needed for Branch nausea benzonatate 2021-05 Yes [id number] 200mg Take 1 Univers 200 mg 2-15 capsule by ity of capsule 00:00: mouth 3 [place] 00 (three) Medical times Branch daily as needed for Cough. albuterol 2021-05 Yes [id number] 2{puff} Inhale 2 Univers 90 2-15 Puffs ity of mcg/actuati 00:00: every 4 [place] on inhaler 00 (four) Medical hours as Branch needed for Wheezing or Shortness of Breath. butalbital- 2021-05 Yes [id number] 1{tbl} Take 1 Univers acetaminoph 2-15 tablet by ity of en-caff 00:00: mouth [place] 50-325-40 00 every 4 Medical mg tablet (four) Branch hours as needed (headache) . ondansetron 2021-05 Yes [id number] 1-2 U nivers 4 mg tablet 2-15 tablets ity o f 00:00: every 8 [place] 00 hours as Medical needed for Branch nausea benzonatate 2021-05 Yes [id number] 200mg Take 1 Univers 200 mg 2-15 capsule by ity of capsule 00:00: mouth 3 [place] 00 (three) Medical times Branch daily as needed for Cough. albuterol 2021-05 Yes [id number] 2{puff} Inhale 2 Univers 90 2-15 Puffs ity of mcg/actuati 00:00: every 4 [place] on inhaler 00 (four) Medical hours as Branch needed for Wheezing or Shortness of Breath. butalbital- 2021-05 Yes [id number] 1{tbl} Take 1 Univers acetaminoph 2-15 tablet by ity of en-caff 00:00: mouth [place] 50-325-40 00 every 4 Medical mg tablet (four) Branch hours as needed (headache) . ondansetron 2021-05 Yes [id number] 1-2 U nivers 4 mg tablet 2-15 tablets ity o f 00:00: every 8 [place] 00 hours as Medical needed for Branch nausea benzonatate 2021-05 Yes [id number] 200mg Take 1 Univers 200 mg 2-15 capsule by ity of capsule 00:00: mouth 3 [place] 00 (three) Medical times Branch daily as needed for Cough. albuterol 2021-05 Yes [id number] 2{puff} Inhale 2 Univers 90 2-15 Puffs ity of mcg/actuati 00:00: every 4 [place] on inhaler 00 (four) Medical hours as Branch needed for Wheezing or Shortness of Breath. butalbital- 2021-05 Yes [id number] 1{tbl} Take 1 Univers acetaminoph 2-15 tablet by ity of en-caff 00:00: mouth [place] 50-325-40 00 every 4 Medical mg tablet (four) Branch hours as needed (headache) . ondansetron 2021-05 Yes [id number] 1-2 U nivers 4 mg tablet 2-15 tablets ity o f 00:00: every 8 [place] 00 hours as Medical needed for Branch nausea benzonatate 2021-05 Yes [id number] 200mg Take 1 Univers 200 mg 2-15 capsule by ity of capsule 00:00: mouth 3 [place] 00 (three) Medical times Branch daily as needed for Cough. albuterol 2021-05 Yes [id number] 2{puff} Inhale 2 Univers 90 2-15 Puffs ity of mcg/actuati 00:00: every 4 [place] on inhaler 00 (four) Medical hours as Branch needed for Wheezing or Shortness of Breath. butalbital- 2021-05 Yes [id number] 1{tbl} Take 1 Univers acetaminoph 2-15 tablet by ity of en-caff 00:00: mouth [place] 50-325-40 00 every 4 Medical mg tablet (four) Branch hours as needed (headache) . ondansetron 2021-05 Yes [id number] 1-2 U nivers 4 mg tablet 2-15 tablets ity o f 00:00: every 8 [place] 00 hours as Medical needed for Branch nausea benzonatate 2021-05 Yes [id number] 200mg Take 1 Univers 200 mg 2-15 capsule by ity of capsule 00:00: mouth 3 [place] 00 (three) Medical times Branch daily as needed for Cough. albuterol 2021-05 Yes [id number] 2{puff} Inhale 2 Univers 90 2-15 Puffs ity of mcg/actuati 00:00: every 4 [place] on inhaler 00 (four) Medical hours as Branch needed for Wheezing or Shortness of Breath. butalbital- 2021-05 Yes [id number] 1{tbl} Take 1 Univers acetaminoph 2-15 tablet by ity of en-caff 00:00: mouth [place] 50-325-40 00 every 4 Medical mg tablet (four) Branch hours as needed (headache) . ondansetron 2021-05 Yes [id number] 1-2 U nivers 4 mg tablet 2-15 tablets ity o f 00:00: every 8 [place] 00 hours as Medical needed for Branch nausea benzonatate 2021-05 Yes [id number] 200mg Take 1 Univers 200 mg 2-15 capsule by ity of capsule 00:00: mouth 3 [place] 00 (three) Medical times Branch daily as needed for Cough. albuterol 2021-05 Yes [id number] 2{puff} Inhale 2 Univers 90 2-15 Puffs ity of mcg/actuati 00:00: every 4 [place] on inhaler 00 (four) Medical hours as Branch needed for Wheezing or Shortness of Breath. butalbital- 2021-05 Yes [id number] 1{tbl} Take 1 Univers acetaminoph 2-15 tablet by ity of en-caff 00:00: mouth [place] 50-325-40 00 every 4 Medical mg tablet (four) Branch hours as needed (headache) . ondansetron 2021-05 Yes [id number] 1-2 U nivers 4 mg tablet 2-15 tablets ity o f 00:00: every 8 [place] 00 hours as Medical needed for Branch nausea benzonatate 2021-05 Yes [id number] 200mg Take 1 Univers 200 mg 2-15 capsule by ity of capsule 00:00: mouth 3 [place] 00 (three) Medical times Branch daily as needed for Cough. albuterol 2021-05 Yes [id number] 2{puff} Inhale 2 Univers 90 2-15 Puffs ity of mcg/actuati 00:00: every 4 [place] on inhaler 00 (four) Medical hours as Branch needed for Wheezing or Shortness of Breath. butalbital- 2021-05 Yes [id number] 1{tbl} Take 1 Univers acetaminoph 2-15 tablet by ity of en-caff 00:00: mouth [place] 50-325-40 00 every 4 Medical mg tablet (four) Branch hours as needed (headache) . ondansetron 2021-05 Yes [id number] 1-2 U nivers 4 mg tablet 2-15 tablets ity o f 00:00: every 8 [place] 00 hours as Medical needed for Branch nausea benzonatate 2021-05 Yes [id number] 200mg Take 1 Univers 200 mg 2-15 capsule by ity of capsule 00:00: mouth 3 [place] 00 (three) Medical times Branch daily as needed for Cough. albuterol 2021-05 Yes [id number] 2{puff} Inhale 2 Univers 90 2-15 Puffs ity of mcg/actuati 00:00: every 4 [place] on inhaler 00 (four) Medical hours as Branch needed for Wheezing or Shortness of Breath. butalbital- 2021-05 Yes [id number] 1{tbl} Take 1 Univers acetaminoph 2-15 tablet by ity of en-caff 00:00: mouth [place] 50-325-40 00 every 4 Medical mg tablet (four) Branch hours as needed (headache) . ondansetron 2021-05 Yes [id number] 1-2 U nivers 4 mg tablet 2-15 tablets ity o f 00:00: every 8 [place] 00 hours as Medical needed for Branch nausea benzonatate 2021-05 Yes [id number] 200mg Take 1 Univers 200 mg 2-15 capsule by ity of capsule 00:00: mouth 3 [place] 00 (three) Medical times Branch daily as needed for Cough. albuterol 2021-05 Yes [id number] 2{puff} Inhale 2 Univers 90 2-15 Puffs ity of mcg/actuati 00:00: every 4 [place] on inhaler 00 (four) Medical hours as Branch needed for Wheezing or Shortness of Breath. butalbital- 2021-05 Yes [id number] 1{tbl} Take 1 Univers acetaminoph 2-15 tablet by ity of en-caff 00:00: mouth [place] 50-325-40 00 every 4 Medical mg tablet (four) Branch hours as needed (headache) . ondansetron 2021-05 Yes [id number] 1-2 U nivers 4 mg tablet 2-15 tablets ity o f 00:00: every 8 [place] 00 hours as Medical needed for Branch nausea benzonatate 2021-05 Yes [id number] 200mg Take 1 Univers 200 mg 2-15 capsule by ity of capsule 00:00: mouth 3 [place] 00 (three) Medical times Branch daily as needed for Cough. albuterol 2021-05 Yes [id number] 2{puff} Inhale 2 Univers 90 2-15 Puffs ity of mcg/actuati 00:00: every 4 [place] on inhaler 00 (four) Medical hours as Branch needed for Wheezing or Shortness of Breath. butalbital- 2021-05 Yes [id number] 1{tbl} Take 1 Univers acetaminoph 2-15 tablet by ity of en-caff 00:00: mouth [place] 50-325-40 00 every 4 Medical mg tablet (four) Branch hours as needed (headache) . ondansetron 2021-05 Yes [id number] 1-2 U nivers 4 mg tablet 2-15 tablets ity o f 00:00: every 8 [place] 00 hours as Medical needed for Branch nausea benzonatate 2021-05 Yes [id number] 200mg Take 1 Univers 200 mg 2-15 capsule by ity of capsule 00:00: mouth 3 [place] 00 (three) Medical times Branch daily as needed for Cough. albuterol 2021-05 Yes [id number] 2{puff} Inhale 2 Univers 90 2-15 Puffs ity of mcg/actuati 00:00: every 4 [place] on inhaler 00 (four) Medical hours as Branch needed for Wheezing or Shortness of Breath. butalbital- 2021-05 Yes [id number] 1{tbl} Take 1 Univers acetaminoph 2-15 tablet by ity of en-caff 00:00: mouth [place] 50-325-40 00 every 4 Medical mg tablet (four) Branch hours as needed (headache) . nirmatrelvi 2021-05- No [id number] 2{tbl} Take 2 Univers r-ritonavir 2-15 12-21 tablets by i ty of (PAXLOVID, 00:00: 05:[facility] :00 the Medical mg (150 mg morning Branch x 2)-100 mg and 2 tablet tablets in the evening. Do all this for 5 days. [facility] 2021-05- No [id number] 2{tbl} Take 2 Univers r-ritonavir 2-15 12-21 tablets by i ty of (PAXLOVID, 00:00: 05:59 [place] 300 00 :00 the Medical mg (150 mg morning Branch x 2)-100 mg and 2 tablet tablets in the evening. Do all this for 5 days. [facility] 2021-05- No [id number] 2{tbl} Take 2 Univers r-ritonavir 2-15 12-21 tablets by i ty of (PAXLOVID, 00:00: 05:59 mouth in [place] [facility],) 300 00 :00 the Medical mg (150 mg morning Branch x 2)-100 mg and 2 tablet tablets in the evening. Do all this for 5 days. [facility] 2021-05- No [id number] 2{tbl} Take 2 Univers r-ritonavir 2-15 12-21 tablets by i ty of (PAXLOVID, 00:00: 05:59 mouth in [place] [facility],) 300 00 :00 the Medical mg (150 [...] 04/22/22 at 1645, Routine amoxicillin 2021-05 Yes [id number] 1{tbl} Take 1 [facility] -clavulanat - 597811 tablet by i ty of e 875-125 00:00: mouth [place] mg per 00 every 12 Medical tablet (twelve) Branch hours. ondansetron 2021-05 Yes [id number] 4mg Take 1 [facility] 4 mg 2-01 [id number] tablet by ity of disintegrat 00:00: mouth [place] ing tablet 00 every 8 Medica l (eight) Branch hours as needed for Nausea and Vomiting (N/V). amoxicillin 2021-05 Yes [id number] 1{tbl} Take 1 [facility] -clavulanat 2-01 [id number] tablet by i ty of e 875-125 00:00: mouth [place] mg per 00 every 12 Medical tablet (twelve) Branch hours. ondansetron 2021-05 Yes [id number] 4mg Take 1 [facility] 4 mg 2-01 [id number] tablet by ity of disintegrat 00:00: mouth [place] ing tablet 00 every 8 Medica l (eight) Branch hours as needed for Nausea and Vomiting (N/V). amoxicillin 2021-05 Yes [id number] 1{tbl} Take 1 [facility] -clavulanat 2-01 [id number] tablet by i ty of e 875-125 00:00: mouth [place] mg per 00 every 12 Medical tablet (twelve) Branch hours. ondansetron 2021-05 Yes [id number] 4mg Take 1 [facility] 4 mg 2-01 [id number] tablet by ity of disintegrat 00:00: mouth [place] ing tablet 00 every 8 Medica l (eight) Branch hours as needed for Nausea and Vomiting (N/V). amoxicillin 2021-05 Yes [id number] 1{tbl} Take 1 [facility] -clavulanat 2-01 [id number] tablet by i ty of e 875-125 00:00: mouth [place] mg per 00 every 12 Medical tablet (twelve) Branch hours. ondansetron 2021-05 Yes [id number] 4mg Take 1 [facility] 4 mg 2-01 [id number] tablet by ity of disintegrat 00:00: mouth [place] ing tablet 00 every 8 Medica l (eight) Branch hours as needed for Nausea and Vomiting (N/V). amoxicillin 2021-05 Yes [id number] 1{tbl} Take 1 [facility] -clavulanat 2-01 [id number] tablet by i ty of e 875-125 00:00: mouth [place] mg per 00 every 12 Medical tablet (twelve) Branch hours. ondansetron 2021-05 Yes [id number] 4mg Take 1 [facility] 4 mg 2-01 [id number] tablet by ity of disintegrat 00:00: mouth [place] ing tablet 00 every 8 Medica l (eight) Branch hours as needed for Nausea and Vomiting (N/V). amoxicillin 2021-05 Yes [id number] 1{tbl} Take 1 [facility] -clavulanat 2-01 [id number] tablet by i ty of e 875-125 00:00: mouth [place] mg per 00 every 12 Medical tablet (twelve) Branch hours. ondansetron 2021-05 Yes [id number] 4mg Take 1 [facility] 4 mg 2-01 [id number] tablet by ity of disintegrat 00:00: mouth [place] ing tablet 00 every 8 Medica l (eight) Branch hours as needed for Nausea and Vomiting (N/V). amoxicillin 2021-05 Yes [id number] 1{tbl} Take 1 [facility] -clavulanat 2-01 [id number] tablet by i ty of e 875-125 00:00: mouth [place] mg per 00 every 12 Medical tablet (twelve) Branch hours. ondansetron 2021-05 Yes [id number] 4mg Take 1 [facility] 4 mg 2- [id number] tablet by ity of disintegrat 00:00: mouth [place] ing tablet 00 every 8 Medica l (eight) Branch hours as needed for Nausea and Vomiting (N/V). amoxicillin 2021-05 Yes [id number] 1{tbl} Take 1 [facility] -clavulanat 2-01 [id number] tablet by i ty of e 875-125 00:00: mouth [place] mg per 00 every 12 Medical tablet (twelve) Branch hours. ondansetron 2021-05 Yes [id number] 4mg Take 1 [facility] 4 mg 2-01 [id number] tablet by ity of disintegrat 00:00: mouth [place] ing tablet 00 every 8 Medica l (eight) Branch hours as needed for Nausea and Vomiting (N/V). amoxicillin 2021-05 Yes [id number] 1{tbl} Take 1 [facility] -clavulanat 2-01 [id number] tablet by i ty of e 875-125 00:00: mouth [place] mg per 00 every 12 Medical tablet (twelve) Branch hours. ondansetron 2021-05 Yes [id number] 4mg Take 1 [facility] 4 mg 2-01 [id number] tablet by ity of disintegrat 00:00: mouth [place] ing tablet 00 every 8 Medica l (eight) Branch hours as needed for Nausea and Vomiting (N/V). amoxicillin 2021-05 Yes [id number] 1{tbl} Take 1 [facility] -clavulanat 2-01 [id number] tablet by i ty of e 875-125 00:00: mouth [place] mg per 00 every 12 Medical tablet (twelve) Branch hours. ondansetron 2021-05 Yes [id number] 4mg Take 1 [facility] 4 mg 2-01 [id number] tablet by ity of disintegrat 00:00: mouth [place] ing tablet 00 every 8 Medica l (eight) Branch hours as needed for Nausea and Vomiting (N/V). amoxicillin 2021-05 Yes [id number] 1{tbl} Take 1 [facility] -clavulanat 2-01 [id number] tablet by i ty of e 875-125 00:00: mouth [place] mg per 00 every 12 Medical tablet (twelve) Branch hours. ondansetron 2021-05 Yes [id number] 4mg Take 1 [facility] 4 mg 2- [id number] tablet by ity of disintegrat 00:00: mouth [place] ing tablet 00 every 8 Medica l (eight) Branch hours as needed for Nausea and Vomiting (N/V). amoxicillin 2021-05 Yes [id number] 1{tbl} Take 1 [facility] -clavulanat 2-01 [id number] tablet by i ty of e 875-125 00:00: mouth [place] mg per 00 every 12 Medical tablet (twelve) Branch hours. ondansetron 2021-05 Yes [id number] 4mg Take 1 [facility] 4 mg 2- [id number] tablet by ity of disintegrat 00:00: mouth [place] ing tablet 00 every 8 Medica l (eight) Branch hours as needed for Nausea and Vomiting (N/V). amoxicillin 2021-05 Yes [id number] 1{tbl} Take 1 [facility] -clavulanat 2-01 [id number] tablet by i ty of e 875-125 00:00: mouth [place] mg per 00 every 12 Medical tablet (twelve) Branch hours. ondansetron 2021-05 Yes [id number] 4mg Take 1 [facility] 4 mg 2-01 [id number] tablet by ity of disintegrat 00:00: mouth [place] ing tablet 00 every 8 Medica l (eight) Branch hours as needed for Nausea and Vomiting (N/V). amoxicillin 2021-05 Yes [id number] 1{tbl} Take 1 [facility] -clavulanat 2-01 [id number] tablet by i ty of e 875-125 00:00: mouth [place] mg per 00 every 12 Medical tablet (twelve) Branch hours. ondansetron 2021-05 Yes [id number] 4mg Take 1 [facility] 4 mg 06-23 [id number] tablet by ity of disintegrat 00:00: mouth [place] ing tablet 00 every 8 Medica l (eight) Branch hours as needed for Nausea and Vomiting (N/V). zoster 2021-05- No [id number] .5mL 0.5 mL by [facility] vaccine, 0-05 03- 9104 Intr[facility] ity of recombinant 00:00: 04:59 lar route [place] (SHINGRIX, 00 :00 once now Medic al PF,) for 1 Branch injection dose. And repeat in 2-6 months zoster 2021-05- No [id number] .5mL 0.5 mL by [facility] vaccine, 0-05 03- 9104 Intramuscu ity of recombinant 00:00: 04:59 lar route [place] (SHINGRIX, 00 :00 once now Medic al PF,) for 1 Branch injection dose. And repeat in 2-6 months zoster 2021-05- No [id number] .5mL 0.5 mL by [facility] vaccine, 0-05 [...] 10mg Take 10 mg U nivers (NORVASC) 27 by mouth ity of 10 mg 19:28: daily. [place] tablet 04 Medical Branch clonazePAM 2021-0 Yes 1mg Take 1 mg Un matt (KLONOPIN) 9-27 by mouth ity o f 1 mg tablet 19:28: at [place] [address] bedtime. Medical Branch traZODone 2021-0 Yes 50mg Take 50 mg Un matt 100 mg 9-27 by mouth ity of tablet 19:28: at [place] [address] bedtime. Medical Branch hydralAZINE 2021-0 Yes 25mg [...] o f 1 mg tablet 19:28: at [place] [address] bedtime. Medical Branch traZODone 2021-0 Yes 50mg Take 50 mg Un matt 100 mg 9-27 by mouth ity of tablet 19:28: at [place] [address] bedtime. Medical Branch hydralAZINE 2021-0 Yes 25mg [...] o f 1 mg tablet 19:28: at [place] [address] bedtime. Medical Branch traZODone 2021-0 Yes 50mg Take 50 mg Un matt 100 mg 9-27 by mouth ity of tablet 19:28: at [place] [address] bedtime. Medical Branch hydralAZINE 2021-0 Yes 25mg [...] 100 mg 04 (two) Medical tablet times [place] daily. amLODIPine 2021-0 Yes 10mg Take 10 mg U nivers (NORVASC) 9- by mouth ity of 10 mg 19:28: daily. [place] tablet 04 Medical Branch clonazePAM 0 Yes 1mg Take 1 mg Un matt (KLONOPIN) 9-27 by mouth ity o f 1 mg tablet 19:28: at [place] [address] bedtime. Medical Branch traZODone 2021-0 Yes 50mg Take 50 mg Un matt 100 mg 9-27 by mouth ity of tablet 19:28: at [place] [address] bedtime. Medical Branch hydralAZINE 2021-0 Yes 25mg [...] o f 1 mg tablet 19:28: at [place] [address] bedtime. Medical Branch traZODone 2021-0 Yes 50mg Take 50 mg Un matt 100 mg 9-27 by mouth ity of tablet 19:28: at [place] [address] bedtime. Medical Branch hydralAZINE 2021-0 Yes 25mg [...] 100 mg 04 (two) Medical tablet times [place] daily. amLODIPine 2021-0 Yes 10mg Take 10 mg U nivers (NORVASC) 9-27 by mouth ity of 10 mg 19:28: daily. [place] tablet 04 Medical Branch clonazePAM 2021-0 Yes 1mg Take 1 mg Un matt (KLONOPIN) 9-27 by mouth ity o f 1 mg tablet 19:28: at [place] [address] bedtime. Medical Branch traZODone 2021-0 Yes 50mg Take 50 mg Un matt 100 mg 9-27 by mouth ity of tablet 19:28: at [place] [address] bedtime. Medical Branch hydralAZINE 2021-0 Yes 25mg [...] o f 1 mg tablet 19:28: at [place] [address] bedtime. Medical Branch traZODone 2021-0 Yes 50mg Take 50 mg Un matt 100 mg 9-27 by mouth ity of tablet 19:28: at [place] [address] bedtime. Medical Branch hydralAZINE 2021-0 Yes 25mg [...] 100 mg 04 (two) Medical tablet times [place] daily. amLODIPine 2021-0 Yes 10mg Take 10 mg U nivers (NORVASC) 9-27 by mouth ity of 10 mg 19:28: daily. [place] tablet 04 Medical Branch clonazePAM 2021-0 Yes 1mg Take 1 mg Un matt (KLONOPIN) 9-27 by mouth ity o f 1 mg tablet 19:28: at [place] [address] bedtime. Medical Branch traZODone 2021-0 Yes 50mg Take 50 mg Un matt 100 mg 9-27 by mouth ity of tablet 19:28: at [place] [address] bedtime. Medical Branch hydralAZINE 2021-0 Yes 25mg [...] o f 1 mg tablet 19:28: at [place] [address] bedtime. Medical Branch traZODone 2021-0 Yes 50mg Take 50 mg Un matt 100 mg 9-27 by mouth ity of tablet 19:28: at [place] [address] bedtime. Medical Branch hydralAZINE 2021-0 Yes 25mg [...] o f 1 mg tablet 19:28: at [place] [address] bedtime. Medical Branch traZODone 2022-0 Yes 50mg Take 50 mg Un matt 100 mg 9-27 by mouth ity of tablet 19:28: at [place] [address] bedtime. Medical Branch hydralAZINE 2021-0 Yes 25mg [...] o f 1 mg tablet 19:28: at [place] [address] bedtime. Medical Branch traZODone 2021-0 Yes 50mg Take 50 mg Un matt 100 mg 9-27 by mouth ity of tablet 19:28: at [place] [address] bedtime. Medical Branch hydralAZINE 2021-0 Yes 25mg [...] o f 1 mg tablet 19:28: at [place] [address] bedtime. Medical Branch traZODone 2022-0 Yes 50mg Take 50 mg Un matt 100 mg 9-27 by mouth ity of tablet 19:28: at [place] [address] bedtime. Medical Branch hydralAZINE 2021-0 Yes 25mg [...] 1mg Take 1 mg Un mtat (KLONOPIN) 9- by mouth ity o f 1 mg tablet 19:28: at [place] [address] bedtime. Medical Branch traZODone 2021-0 Yes 50mg Take 50 mg Un matt 100 mg 9-27 by mouth ity of tablet 19:28: at [place] [address] bedtime. Medical Branch hydralAZINE 2021-0 Yes 25mg [...] o f 1 mg tablet 19:28: at [place] [address] bedtime. Medical Branch traZODone 2021-0 Yes 50mg Take 50 mg Un matt 100 mg 9-27 by mouth ity of tablet 19:28: at [place] [address] bedtime. Medical Branch hydralAZINE 2021-0 Yes 25mg [...] 100 mg 04 (two) Medical tablet times [place] daily. amLODIPine 2021-0 Yes 10mg Take 10 mg U nivers (NORVASC) 9-27 by mouth ity of 10 mg 19:28: daily. [place] tablet 04 Medical Branch clonazePAM 0 Yes 1mg Take 1 mg Un matt (KLONOPIN) 9-27 by mouth ity o f 1 mg tablet 19:28: at [place] [address] bedtime. Medical Branch traZODone 2021-0 Yes 50mg Take 50 mg Un matt 100 mg 9-27 by mouth ity of tablet 19:28: at [place] [address] bedtime. Medical Branch hydralAZINE 2021-0 Yes 25mg [...] o f 1 mg tablet 19:28: at [place] [address] bedtime. Medical Branch traZODone 2021-0 Yes 50mg Take 50 mg Un matt 100 mg 9-27 by mouth ity of tablet 19:28: at [place] [address] bedtime. Medical Branch hydralAZINE 2021-0 Yes 25mg [...] o f 1 mg tablet 19:28: at [place] [address] bedtime. Medical Branch traZODone 2021-0 Yes 50mg Take 50 mg Un matt 100 mg 9- by mouth ity of tablet 19:28: at [place] [address] bedtime. Medical Branch hydralAZINE 2021-0 Yes 25mg [...] 100 mg 04 (two) Medical tablet times [place] daily. amLODIPine 2021-0 Yes 10mg Take 10 mg U nivers (NORVASC) 9-27 by mouth ity of 10 mg 19:28: daily. [place] tablet 04 Medical Branch clonazePAM 2021-0 Yes 1mg Take 1 mg Un matt (KLONOPIN) 9-27 by mouth ity o f 1 mg tablet 19:28: at [place] [address] bedtime. Medical Branch traZODone 2021-0 Yes 50mg Take 50 mg Un matt 100 mg 9-27 by mouth ity of tablet 19:28: at [place] [address] bedtime. Medical Branch hydralAZINE 2021-0 Yes 25mg [...] 100 mg 04 (two) Medical tablet times [place] daily. amLODIPine 2021-0 Yes 10mg Take 10 mg U nivers (NORVASC) 9-27 by mouth ity of 10 mg 19:28: daily. [place] tablet 04 Medical Branch clonazePAM 2021-0 Yes 1mg Take 1 mg Un matt (KLONOPIN) 9-27 by mouth ity o f 1 mg tablet 19:28: at [place] [address] bedtime. Medical Branch traZODone 2021-0 Yes 50mg Take 50 mg Un matt 100 mg 9-27 by mouth ity of tablet 19:28: at [place] [address] bedtime. Medical Branch hydralAZINE 2021-0 Yes 25mg [...] o f 1 mg tablet 19:28: at [place] [address] bedtime. Medical Branch traZODone 2021-0 Yes 50mg Take 50 mg Un matt 100 mg 9-27 by mouth ity of tablet 19:28: at [place] [address] bedtime. Medical Branch hydralAZINE 2021-0 Yes 25mg [...] 100 mg 04 (two) Medical tablet times [place] daily. amLODIPine 2021-0 Yes 10mg Take 10 mg U nivers (NORVASC) 9-27 by mouth ity of 10 mg 19:28: daily. [place] tablet 04 Medical Branch clonazePAM 2021-0 Yes 1mg Take 1 mg Un matt (KLONOPIN) 9-27 by mouth ity o f 1 mg tablet 19:28: at [place] [address] bedtime. Medical Branch traZODone 2021-0 Yes 50mg Take 50 mg Un matt 100 mg 9-27 by mouth ity of tablet 19:28: at [place] [address] bedtime. Medical Branch hydralAZINE 2-0 Yes 25mg [...] 100 mg 04 (two) Medical tablet times [place] daily. amLODIPine Yes 10mg Take 10 mg U nivers (NORVASC) - by mouth ity of 10 mg 19:28: daily. [place] tablet 04 Medical Branch clonazePAM 0 Yes 1mg Take 1 mg Un matt (KLONOPIN) 02-16 by mouth ity o f 1 mg tablet 19:28: at [place] [address] bedtime. Medical Branch traZODone Yes 50mg Take 50 mg Un matt 100 mg 02-16 by mouth ity of tablet 19:28: at [place] [address] bedtime. Medical Branch cefpodoxime 2021- No [id number] 200mg Take 1 [facility] 200 mg 02-16 tablet by ity of tablet 00:00: 04:59 mouth in [place] 00 :00 the Medical morning Branch and 1 tablet in the evening. Do all this for 3 days. cefpodoxime 2021- No [id number] 200mg Take 1 [facility] 200 mg 02-16 tablet by ity of tablet 00:00: 04:59 mouth in [place] 00 :00 the Medical morning Branch and [...] 24 Oral, ity of en-caff 18:46: Q6HPRN, [place]rie [...] 19:00: First dose [place] 00 on Tue [facility] 02/12/22 at Branch 1400, Until Discontinu ed, Routine HYDROmorpho Yes 4mg 4 mg, Unive rs ne 02-12 Oral, ity of (DILAUDID) 17:37: Q6HPRN, [place] tablet 4 mg 07 Starting [facility] porfirio on Tue02/12/22 at 1237, Until Discontinu ed, Routine, Pain (scale 4-6) morpHINE (2 2021- No 2mg 2 mg, Slow Univers mg/mL) 02-12 IV Push, ity of injection 2 17:36: 20:36 Q6HPRN, [place] mg 46 :24 Starting Medical on Tue [place] 02/12/22 at 1236, Until 02/14/22 at 1536, Routine, Pain (scale 7-10) cefTRIAXone 2021-0 2021- No 2000mg 2,000 mg, Univers (ROCEPHIN) 02-12 IV ity of 2,000 mg in 17:00: 18:24 Piggyback, [place] NaCl 0.9% 00 :00 Q24H ABX, Medic [...] s mg 37 Starting Medical on [facility] Branch 02/11/22 at 1618, Until Discontinu ed, Routine, SBP > 170 nystatin-tr 2021-0 Yes Topical, Un matt iamcinolone 02-11 TID, First it y of (MYCOLOG) 19:00: dose on [place] cream 00 [facility] Medical 02/11/22 at Branch 1400, Until [...] Routine emtricitabi 2021-0 Yes 1{tbl} 1 tablet, [facility] ne-tenofovi 02-11 Oral, ity of r alafen 18:00: DAILY, [place] (DESCOVY) 00 First dose Medi porfirio tablet 1 on [facility] tablet 02/11/22 at 1300, Until Discontinu ed, Routine ipratropium 2021-0 Yes .5mg 0.5 mg, Uni vers (ATROVENT) 02-11 Inhalation ity of 0.02 % 17:57: , QIDPRN, [place] nebulizer 10 Starting Medica l solution on [...] Medic al mg tablet 1 on [facility] Branch tablet 02/11/22 at 0906, Until Tue02/12/22 at 1237, Routine, Pain (scale 4-6) sennosides- Yes 1{tbl} 1 tablet, Univers docusate 02-11 Oral, ity of sodium 14:06: QDAILYPRN, [place] (SENOKOT-S) 09 Starting Medi porfirio 8.6-50 mg on [facility] per tablet 02/11/22 at 1 tablet 0906, Until Discontinu ed, Routine, Constipati on ondansetron 0 Yes 4mg 4 mg, Slow Univers (ZOFRAN 02-11 IV Push, ity of (PF)) 14:05: Q6HPRN, [place] injection 4 59 Starting Medi porfirio mg on [place] Branch 02/11/22 at 0905, Until Discontinu ed, Routine, Nausea and Vomiting (N/V) acetaminoph 2021-0 Yes 650mg 650 mg, Un matt en 02-11 Oral, ity of (TYLENOL) 14:04: Q6HPRN, [place] tablet 650 37 Starting Medic al mg [...] ity of ) 25 mg 09:10: daily. [address] amLODIPine 0 Yes 10mg Take 10 mg U nivers (NORVASC) 02-11 by mouth ity of 10 mg 09:10: daily. [facility] 54 [facility] Branch piperacilli 2021-0 2021- No 3.375g 3.375 [...] of therapy: 72 hours iopamidol 2021- No [id number] 60mL 60 mL, Univers (ISOVUE 02-11 Intravenou [...] 00 :00 dose, On Medi porfirio mg [facility] Branch 02/11/22 at 0300, JOE ondansetron 2021- No 4mg 4 mg, Slow Univers (ZOFRAN 02-11 IV Push, ity of (PF)) 05:45: 05:08 ONCE, 1 [place] injection 4 00 :00 dose, On Medi porfirio mg [facility] Branch 02/11/22 at 0045, JOE acetaminoph 2021- No 975mg 975 mg, U nivers en 02-11 Oral, ity of (TYLENOL) 05:15: 04:19 ONCE, 1 [place] tablet 975 00 :00 dose, On Medic al mg [facility] Branch 02/11/22 at 0015, JOE emtricitabi 0 Yes [id number] Take one Univers ne-tenofovi 9-12 po daily ity of r alafen 00:00: [place] (DESCOVY) 00 Medical tablet Branch emtricitabi 0 Yes [id number] Take one Univers ne-tenofovi 9-12 po daily ity of r alafen 00:00: [place] (DESCOVY) 00 Medical tablet Branch emtricitabi 0 Yes [id number] Take one Univers ne-tenofovi 9-12 po daily ity of r alafen 00:00: [place] (DESCOVY) 00 Medical tablet Branch emtricitabi Yes [id number] Take one Univers ne-tenofovi 9-12 po daily ity of r alafen 00:00: [place] (DESCOVY) 00 Medical tablet Branch emtricitabi Yes [id number] Take one Univers ne-tenofovi 9-12 po daily ity of r alafen 00:00: [place] (DESCOVY) 00 Medical tablet Branch emtricitabi Yes [id number] Take one Univers ne-tenofovi 9-12 po daily ity of r alafen 00:00: [place] (DESCOVY) 00 Medical tablet Branch emtricitabi Yes [id number] Take one Univers ne-tenofovi 9-12 po daily ity of r alafen 00:00: [place] (DESCOVY) 00 Medical tablet Branch emtricitabi Yes [id number] Take one Univers ne-tenofovi 9-12 po daily ity of r alafen 00:00: [place] (DESCOVY) 00 Medical tablet Branch emtricita Yes [id number] Take one Univers ne-tenofovi 9-12 po daily ity of r alafen 00:00: [place] (DESCOVY) 00 Medical tablet Branch emtricitabi Yes [id number] Take one Univers ne-tenofovi 9-12 po daily ity of r alafen 00:00: [place] (DESCOVY) 00 Medical tablet Branch emtricita Yes [id number] Take one Univers ne-tenofovi 9-12 po daily ity of r alafen 00:00: [place] (DESCOVY) 00 Medical tablet Branch emtricitabi Yes [id number] Take one Univers ne-tenofovi 9-12 po daily ity of r alafen 00:00: [place] (DESCOVY) 00 Medical tablet Branch emtricitabi Yes [id number] Take one Univers ne-tenofovi 9-12 po daily ity of r alafen 00:00: [place] (DESCOVY) 00 Medical tablet Branch emtricitabi Yes [id number] Take one Univers ne-tenofovi 9-12 po daily ity of r alafen 00:00: [place] (DESCOVY) 00 Medical tablet Branch emtricitabi 0 Yes [id number] Take one Univers ne-tenofovi 9-12 po daily ity of r alafen 00:00: [place] (DESCOVY) 00 Medical tablet Branch emtricitabi 0 Yes [id number] Take one Univers ne-tenofovi 9-12 po daily ity of r alafen 00:00: [place] (DESCOVY) 00 Medical tablet Branch emtricitabi 0 Yes [id number] Take one Univers ne-tenofovi 9-12 po daily ity of r alafen 00:00: [place] (DESCOVY) 00 Medical tablet Branch emtricitabi 0 2023- No [id number] Take one Univers ne-tenofovi 9-12 04-04 po daily ity of r alafen 00:00: 00:00 [place] (DESCOVY) 00 :00 Medical tablet Branch emtricitabi 0 2023- No [id number] Take one Univers ne-tenofovi 9-12 04-04 po daily ity of r alafen 00:00: 00:00 [place] (DESCOVY) 00 :00 Medical tablet Branch naproxen 2021-0 Yes [id number] 500mg Take 1 U nivers (NAPROSYN) 7-24 tablet by ity of 500 mg 00:00: mouth in [place] tablet 00 the Medical morning Branch and 1 tablet in the evening. Take with meals. methocarbam 2021-0 Yes [id number] 500mg Take 1 Univers oL 500 mg 7-24 tablet by ity o f tablet 00:00: mouth 4 [place] ([facility]) Medical times Branch daily. naproxen 2021-0 Yes [id number] 500mg Take 1 U nivers (NAPROSYN) 7-24 tablet by ity of 500 mg 00:00: mouth in [place] tablet 00 the Medical morning Branch and 1 tablet in the evening. Take with meals. methocarbam 2021-0 Yes [id number] 500mg Take 1 Univers oL 500 mg 7-24 tablet by ity o f tablet 00:00: mouth 4 ([facility]) Medical times Branch daily. naproxen 2021-0 Yes [id number] 500mg Take 1 U nivers (NAPROSYN) 7-24 tablet by ity of 500 mg 00:00: mouth in [place] tablet 00 the Medical morning Branch and 1 tablet in the evening. Take with meals. methocarbam 2021-0 Yes [id number] 500mg Take 1 Univers oL 500 mg 7-24 tablet by ity o f tablet 00:00: mouth 4 [place] 00 (four) Medical times [place] daily. naproxen 2021- No [id number] 500mg Take 1 Univers (NAPROSYN) 7-24 10-14 tablet by ity of 500 mg 00:00: 00:00 mouth in [place] tablet 00 :00 the Medical morning Branch and 1 tablet in the evening. Take with meals. methocarbam 2021-2021- No [id number] 500mg Take 1 [facility] oL 500 mg 7-24 10-14 tablet by ity of tablet 00:00: 00:00 mouth 4 [place] 00 :00 (four) Medical times [place] daily. naproxen 2021-2021- No [id number] 500mg Take 1 Univers (NAPROSYN) 7-24 10-14 tablet by ity of 500 mg 00:00: 00:00 mouth in [place] tablet 00 :00 the Medical morning Branch and 1 tablet in the evening. Take with meals. methocarbam 2021-2021- No [id number] 500mg Take 1 Univers oL 500 mg 7-24 10-14 tablet by ity of tablet 00:00: 00:00 mouth 4 [place] 00 :00 (four) Medical times [place] daily. esomeprazol 2021- No 40mg Take 40 mg Univers e (NEXIUM) 11-20 by mouth 2 it y of 40 mg 09:12: 00:00 (two) [place] capsule 03 :00 times Medical daily. Branch amiodarone 2021- No 100mg Take 100 U nivers 100 mg 11-20 mg by ity of tablet 09:11: 00:00 mouth [place] 57 :00 daily. Medical Branch apixaban 2021- No 5mg Take 5 mg Uni vers (ELIQUIS) 5 11-20 by mouth 2 i ty of mg tablet 09:11: 00:00 (two) [place] 35 :00 times Medical daily. Branch traZODONE 2021- No Take by [facility] ers (DESYREL) 11-20 mouth at ity o f 10 mg/mL 09:10: 00:00 [place]time. [place] oral 28 :00 Medical suspension Branch hydralAZINE Yes 25mg Take 25 mg Univers (APRESOLINE 11-20 by mouth ity of ) 25 mg 08:47: daily. [place] tablet 47 Medical Branch cephALEXin 2021- No [id number] 500mg Take 1 Univers (KEFLEX) 10-24 capsule [...] 7-10). Indication s: acute pain buPROPion Yes [id number] 150mg Take 1 U nivers XL 4-12 tablet by ity of (WELLBUTRIN 00:00: mouth [place] XL) 150 mg 00 daily. Medical 24 hr Branch tablet busPIRone Yes [id number] 30mg Take 1 Un mtat 30 mg 4-12 tablet by ity of tablet 00:00: mouth 2 [place] 00 (two) Medical times Branch daily. SERTraline Yes [id number] 200mg Take 2 Univers 100 mg 4-12 tablets by ity of tablet 00:00: mouth [place] 00 daily. Medical Branch buPROPion Yes [id number] 150mg Take 1 U nivers XL 4-12 tablet by ity of (WELLBUTRIN 00:00: mouth [place] XL) 150 mg 00 daily. Medical 24 hr Branch tablet busPIRone Yes [id number] 30mg Take 1 Un matt 30 mg 4-12 tablet by ity of tablet 00:00: mouth 2 [place] 00 (two) Medical times Branch daily. SERTraline Yes [id number] 200mg Take 2 Univers 100 mg 4-12 tablets by ity of tablet 00:00: mouth [place] 00 daily. Medical Branch buPROPion 2021-0 Yes [id number] 150mg Take 1 U nivers XL 4-12 tablet by ity of (WELLBUTRIN 00:00: mouth [place] XL) 150 mg 00 daily. Medical 24 hr Branch tablet busPIRone 2021-0 Yes [id number] 30mg Take 1 Un matt 30 mg 4-12 tablet by ity of tablet 00:00: mouth 2 [place] 00 (two) Medical times Branch daily. SERTraline 2021-0 Yes [id number] 200mg Take 2 Univers 100 mg 4-12 tablets by ity of tablet 00:00: mouth [place] 00 daily. Medical Branch buPROPion 2021-0 Yes [id number] 150mg Take 1 U nivers XL 4-12 tablet by ity of (WELLBUTRIN 00:00: mouth [place] XL) 150 mg 00 daily. Medical 24 hr Branch tablet busPIRone 2021-0 Yes [id number] 30mg Take 1 Un matt 30 mg 4-12 tablet by ity of tablet 00:00: mouth 2 (two) Medical times Branch daily. SERTraline 2021-0 Yes [id number] 200mg Take 2 [facility] 100 mg 4-12 tablets by [facility] tablet 00:00: mouth [place] 00 daily. [facility] buPROPion 2021-0 Yes [id number] 150mg Take 1 [facility] nivers XL 4-12 tablet by [facility]y of (WELLBUTRIN 00:00: mouth [place] XL) 150 mg 00 daily. Medical 24 hr Branch tablet busPIRone 2021-0 Yes [id number] 30mg Take 1 Un matt 30 mg 4-12 tablet by [facility] of tablet 00:00: mouth 2 [place] 00 (two) Medical times Branch daily. SERTraline 2021-0 Yes [id number] 200mg Take 2 [facility] 100 mg 4-12 tablets by [facility] of tablet 00:00: mouth [place] 00 daily. [facility] buPROPion 2021-0 Yes [id number] 150mg Take 1 [facility] nivers XL 4-12 tablet by [facility] of (WELLBUTRIN 00:00: mouth [place] XL) 150 mg 00 daily. Medical 24 hr Branch tablet busPIRone 2021-0 Yes [id number] 30mg Take 1 [facility] matt 30 mg 4-12 tablet by [facility] of tablet 00:00: mouth 2 [place] 00 (two) Medical times Branch daily. SERTraline 2021-0 Yes [id number] 200mg Take 2 [facility] 100 mg 4-12 tablets by [facility] of tablet 00:00: mouth [place] 00 daily. [facility] buPROPion 2021-0 Yes [id number] 150mg Take 1 [facility] nivers XL 4-12 tablet by [facility] of (WELLBUTRIN 00:00: mouth [place] XL) 150 mg 00 daily. Medical 24 hr Branch tablet busPIRone 2021-0 Yes [id number] 30mg Take 1 [facility] 30 mg 4-12 tablet by [facility] of tablet 00:00: mouth 2 [place] 00 (two) Medical times Branch daily. SERTraline 2021-0 Yes [id number] 200mg Take 2 [facility] 100 mg 4-12 tablets by [facility] of tablet 00:00: mouth [place] 00 daily. [facility] buPROPion 2021-0 Yes [id number] 150mg Take 1 [facility] nivers XL 4-12 tablet by [facility] of (WELLBUTRIN 00:00: mouth [place] XL) 150 mg 00 daily. Medical 24 hr Branch tablet busPIRone 2021-0 Yes [id number] 30mg Take 1 [facility] 30 mg 4-12 tablet by [facility] of tablet 00:00: mouth 2 [place] 00 (two) Medical times Branch daily. SERTraline 2021-0 Yes [id number] 200mg Take 2 [facility] 100 mg 4-12 tablets by [facility] of tablet 00:00: mouth [place] 00 daily. [facility] buPROPion 2021-0 Yes [id number] 150mg Take 1 [facility] nivers XL 4-12 tablet by [facility] of (WELLBUTRIN 00:00: mouth [place] XL) 150 mg 00 daily. Medical 24 hr Branch tablet busPIRone 2021-0 Yes [id number] 30mg Take 1 [facility] 30 mg 4-12 tablet by [facility] of tablet 00:00: mouth 2 [place] 00 (two) Medical times Branch daily. SERTraline 2021-0 Yes [id number] 200mg Take 2 [facility] 100 mg 4-12 tablets by [facility] of tablet 00:00: mouth [place] 00 daily. [facility] buPROPion 2021-0 Yes [id number] 150mg Take 1 [facility] XL 4-12 tablet by [facility] of (WELLBUTRIN 00:00: mouth [place] XL) 150 mg 00 daily. Medical 24 hr Branch tablet busPIRone 2021-0 Yes [id number] 30mg Take 1 [facility] 30 mg 4-12 tablet by [facility] of tablet 00:00: mouth 2 [place] 00 (two) Medical times Branch daily. SERTraline 2021-0 Yes [id number] 200mg Take 2 [facility] 100 mg 4-12 tablets by [facility] of tablet 00:00: mouth [place] 00 daily. [facility] buPROPion 2021-0 Yes [id number] 150mg Take 1 [facility] XL 4-12 tablet by [facility] of (WELLBUTRIN 00:00: mouth [place] XL) 150 mg 00 daily. Medical 24 hr Branch tablet busPIRone 2021-0 Yes [id number] 30mg Take 1 [facility] 30 mg 4-12 tablet by [facility] of tablet 00:00: mouth 2 [place] 00 (two) Medical times Branch daily. SERTraline 0 Yes [id number] 200mg Take 2 [facility] 100 mg 4-12 tablets by [facility] of tablet 00:00: mouth [place] 00 daily. [facility] buPROPion 2021-0 Yes [id number] 150mg Take 1 [facility] XL 4-12 tablet by [facility] of (WELLBUTRIN 00:00: mouth [place] XL) 150 mg 00 daily. Medical 24 hr Branch tablet busPIRone 2021-0 Yes [id number] 30mg Take 1 [facility] 30 mg 4-12 tablet by [facility] of tablet 00:00: mouth 2 [place] 00 (two) Medical times Branch daily. SERTraline 2021-0 Yes [id number] 200mg Take 2 [facility] 100 mg 4-12 tablets by [facility] of tablet 00:00: mouth [place] 00 daily. [facility] buPROPion 2021-0 Yes [id number] 150mg Take 1 [facility] XL 4-12 tablet by [facility] of (WELLBUTRIN 00:00: mouth [place] XL) 150 mg 00 daily. Medical 24 hr Branch tablet busPIRone 2021-0 Yes [id number] 30mg Take 1 [facility] 30 mg 4-12 tablet by [facility] of tablet 00:00: mouth 2 [place] 00 (two) Medical times Branch daily. SERTraline 2021-0 Yes [id number] 200mg Take 2 [facility] 100 mg 4-12 tablets by [facility] of tablet 00:00: mouth [place] 00 daily. [facility] buPROPion 2021-0 Yes [id number] 150mg Take 1 [facility] n[facility] XL 4-12 tablet by [facility]y of (WELLBUTRIN 00:00: mouth [place] XL) 150 mg 00 daily. Medical 24 hr Branch tablet busPIRone 2021-0 Yes [id number] 30mg Take 1 [facility] 30 mg 4-12 tablet by [facility] of tablet 00:00: mouth 2 [place] 00 (two) Medical times Branch daily. SERTraline 2021-0 Yes [id number] 200mg Take 2 [facility] 100 mg 4-12 tablets by [facility] of tablet 00:00: mouth [place] 00 daily. Medical [facility] buPROPion 0 Yes [id number] 150mg Take 1 [facility] nivers XL 4-12 tablet by [facility]y of (WELLBUTRIN 00:00: mouth [place] XL) 150 mg 00 daily. Medical 24 hr Branch tablet busPIRone 0 Yes [id number] 30mg Take 1 [facility] matt 30 mg 4-12 tablet by [facility] of tablet 00:00: mouth 2 00 (two) Medical times Branch daily. SERTraline 0 Yes [id number] 200mg Take 2 [facility] 100 mg 4-12 tablets by [facility] of tablet 00:00: mouth [place] 00 daily. Medical [facility] buPROPion 0 Yes [id number] 150mg Take 1 [facility] nivers XL 4-12 tablet by [facility] of (WELLBUTRIN 00:00: mouth [place] XL) 150 mg 00 daily. Medical 24 hr Branch tablet busPIRone 2021-0 Yes [id number] 30mg Take 1 [facility] 30 mg 4-12 tablet by [facility] of tablet 00:00: mouth 2 00 (two) Medical times Branch daily. SERTraline 2021-0 Yes [id number] 200mg Take 2 [facility] 100 mg 4-12 tablets by [facility] of tablet 00:00: mouth [place] 00 daily. Medical [facility] buPROPion 2021-0 Yes [id number] 150mg Take 1 [facility] n[facility] XL 4-12 tablet by [facility] of (WELLBUTRIN 00:00: mouth [place] XL) 150 mg 00 daily. Medical 24 hr Branch tablet busPIRone 2021-0 Yes [id number] 30mg Take 1 [facility] 30 mg 4-12 tablet by [facility] of tablet 00:00: mouth 2 [place] 00 (two) Medical times Branch daily. SERTraline 2022-0 Yes [id number] 200mg Take 2 [facility] 100 mg 4-12 tablets by [facility] of tablet 00:00: mouth [place] 00 daily. [facility] buPROPion 2021-0 Yes [id number] 150mg Take 1 [facility] XL 4-12 tablet by [facility] of (WELLBUTRIN 00:00: mouth [place] XL) 150 mg 00 daily. Medical 24 hr Branch tablet busPIRone 2021-0 Yes [id number] 30mg Take 1 [facility] 30 mg 4-12 tablet by [facility] of tablet 00:00: mouth 2 [place] 00 (two) Medical times Branch daily. SERTraline 0 Yes [id number] 200mg Take 2 [facility] 100 mg 4-12 tablets by [facility] of tablet 00:00: mouth [place] 00 daily. [facility] buPROPion 0 Yes [id number] 150mg Take 1 [facility] XL 4-12 tablet by [facility]y of (WELLBUTRIN 00:00: mouth [place] XL) 150 mg 00 daily. Medical 24 hr Branch tablet busPIRone 0 Yes [id number] 30mg Take 1 [facility] 30 mg 4-12 tablet by [facility] of tablet 00:00: mouth 2 [place] 00 (two) Medical times Branch daily. SERTraline 0 Yes [id number] 200mg Take 2 [facility] 100 mg 4-12 tablets by [facility] of tablet 00:00: mouth [place] 00 daily. Medical [facility] buPROPion 0 Yes [id number] 150mg Take 1 [facility] XL 4-12 tablet by [facility]y of (WELLBUTRIN 00:00: mouth [place] XL) 150 mg 00 daily. Medical 24 hr Branch tablet busPIRone 2021-0 Yes [id number] 30mg Take 1 [facility] 30 mg 4-12 tablet by [facility] of tablet 00:00: mouth 2 [place] 00 (two) Medical times Branch daily. SERTraline 0 Yes [id number] 200mg Take 2 [facility] 100 mg 4-12 tablets by [facility] of tablet 00:00: mouth [place] 00 daily. Medical [facility] buPROPion 0 Yes [id number] 150mg Take 1 [facility] XL 4-12 tablet by [facility]y of (WELLBUTRIN 00:00: mouth [place] XL) 150 mg 00 daily. Medical 24 hr Branch tablet busPIRone 2021-0 Yes [id number] 30mg Take 1 [facility] matt 30 mg 4-12 tablet by [facility] of tablet 00:00: mouth 2 [place] 00 (two) Medical times Branch daily. SERTraline 2021-0 Yes [id number] 200mg Take 2 [facility] 100 mg 4-12 tablets by [facility] of tablet 00:00: mouth [place] 00 daily. Medical [facility] buPROPion 2021-0 Yes [id number] 150mg Take 1 [facility] XL 4-12 tablet by [facility]y of (WELLBUTRIN 00:00: mouth [place] XL) 150 mg 00 daily. Medical 24 hr Branch tablet busPIRone 0 Yes [id number] 30mg Take 1 [facility] matt 30 mg 4-12 tablet by [facility] of tablet 00:00: mouth 2 [place] 00 (two) Medical times Branch daily. SERTraline 2021-0 Yes [id number] 200mg Take 2 [facility] 100 mg 4-12 tablets by [facility] of tablet 00:00: mouth [place] 00 daily. Medical [facility] buPROPion 0 Yes [id number] 150mg Take 1 [facility] XL 4-12 tablet by [facility] of (WELLBUTRIN 00:00: mouth [place] XL) 150 mg 00 daily. Medical 24 hr Branch tablet busPIRone 2021-0 Yes [id number] 30mg Take 1 [facility] 30 mg 4-12 tablet by [facility] of tablet 00:00: mouth 2 [place] 00 (two) Medical times Branch daily. SERTraline 0 Yes [id number] 200mg Take 2 [facility] 100 mg 4-12 tablets by [facility] of tablet 00:00: mouth [place] 00 daily. Medical [facility] buPROPion 0 Yes [id number] 150mg Take 1 [facility] n[facility] XL 4-12 tablet by [facility]y of (WELLBUTRIN 00:00: mouth [place] XL) 150 mg 00 daily. Medical 24 hr Branch tablet busPIRone 2021-0 Yes [id number] 30mg Take 1 [facility] 30 mg 4-12 tablet by [facility] of tablet 00:00: mouth 2 [place] 00 (two) Medical times Branch daily. SERTraline 2021-0 Yes [id number] 200mg Take 2 [facility] 100 mg 4-12 tablets by [facility] of tablet 00:00: mouth [place] 00 daily. Medical Branch raltegravir 2021-0 Yes [id number] 400mg Take 1 [facility] (ISENTRESS) 3-28 tablet by [facility] of 400 mg 00:00: mouth 2 [place] tablet 00 (two) Medical times Branch daily. raltegravir 2022-0 Yes [id number] 400mg Take 1 [facility] (ISENTRESS) 3-28 tablet by [facility]y of 400 mg 00:00: mouth 2 [place] tablet 00 (two) Medical times Branch daily. raltegravir 2022-0 Yes [id number] 400mg Take 1 [facility] (ISENTRESS) 3-28 tablet by ity of 400 mg 00:00: mouth 2 [place] tablet 00 (two) Medical times Branch daily. raltegravir 2022-0 Yes [id number] 400mg Take 1 [facility] (ISENTRESS) 3-28 tablet by [facility]y of 400 mg 00:00: mouth 2 [place] tablet 00 (two) Medical times Branch daily. raltegravir 2022-0 Yes [id number] 400mg Take 1 [facility] (ISENTRESS) 3-28 tablet by [facility]y of 400 mg 00:00: mouth 2 [place] tablet 00 (two) Medical times Branch daily. raltegravir 2022-0 Yes [id number] 400mg Take 1 [facility] (ISENTRESS) 3-28 tablet by [facility] of 400 mg 00:00: mouth 2 [place] tablet 00 (two) Medical times Branch daily. raltegravir 2022-0 Yes [id number] 400mg Take 1 [facility] (ISENTRESS) 3-28 tablet by [facility] of 400 mg 00:00: mouth 2 [place] tablet 00 (two) Medical times Branch daily. raltegravir 2022-0 Yes [id number] 400mg Take 1 [facility] (ISENTRESS) 3-28 tablet by [facility]y of 400 mg 00:00: mouth 2 [place] tablet 00 (two) Medical times Branch daily. raltegravir 2022-0 Yes [id number] 400mg Take 1 [facility] (ISENTRESS) 3-28 tablet by [facility]y of 400 mg 00:00: mouth 2 [place] tablet 00 (two) Medical times Branch daily. raltegravir 2022-0 Yes [id number] 400mg Take 1 [facility] (ISENTRESS) 3-28 tablet by [facility]y of 400 mg 00:00: mouth 2 [place] tablet 00 (two) Medical times Branch daily. raltegravir 2022-0 Yes [id number] 400mg Take 1 [facility] (ISENTRESS) 3-28 tablet by ity of 400 mg 00:00: mouth 2 [place] tablet 00 (two) Medical times Branch daily. raltegravir 2-0 Yes [id number] 400mg Take 1 [facility] (ISENTRESS) 3-28 tablet by ity of 400 mg 00:00: mouth 2 [place] tablet 00 (two) Medical times Branch daily. raltegravir 2021-0 Yes [id number] 400mg Take 1 [facility] (ISENTRESS) 3-28 tablet by ity of 400 mg 00:00: mouth 2 [place] tablet 00 (two) Medical times Branch daily. raltegravir 2021-0 Yes [id number] 400mg Take 1 [facility] (ISENTRESS) 3-28 tablet by ity of 400 mg 00:00: mouth 2 [place] tablet 00 (two) Medical times Branch daily. raltegravir 2021-0 Yes [id number] 400mg Take 1 [facility] (ISENTRESS) 3-28 tablet by ity of 400 mg 00:00: mouth 2 [place] tablet 00 (two) Medical times Branch daily. raltegravir 2021-0 Yes [id number] 400mg Take 1 [facility] (ISENTRESS) 3-28 tablet by ity of 400 mg 00:00: mouth 2 [place] tablet 00 (two) Medical times Branch daily. raltegravir 2021-0 Yes [id number] 400mg Take 1 [facility] (ISENTRESS) 3-28 tablet by ity of 400 mg 00:00: mouth 2 [place] tablet 00 (two) Medical times Branch daily. raltegravir 2021-0 Yes [id number] 400mg Take 1 [facility] (ISENTRESS) 3-28 tablet by ity of 400 mg 00:00: mouth 2 [place] tablet 00 (two) Medical times Branch daily. raltegravir 2-0 Yes [id number] 400mg Take 1 [facility] (ISENTRESS) 3-28 tablet by ity of 400 mg 00:00: mouth 2 [place] tablet 00 (two) Medical times Branch daily. raltegravir 2022-0 Yes [id number] 400mg Take 1 [facility] (ISENTRESS) 3-28 tablet by ity of 400 mg 00:00: mouth 2 [place] tablet 00 (two) Medical times Branch daily. raltegravir 2022-0 2023- No [id number] 400mg Take 1 [facility] (ISENTRESS) 3-28 05-08 tablet by it y of 400 mg 00:00: 00:00 mouth 2 [place] tablet 00 :00 (two) Medical times Branch daily. LORazepam 1 2021- No [id number] 1mg Take 1 [facility] mg tablet 08-10 tablet by ity of 00:00: 00:00 mouth [...] times a tablet day. emtricitabi 2021- No [id number] Take one [facility] ne-tenofovi -20 -12 po daily ity of r alafen 00:00: 00:00 [place] (DESCOVY) 00 :00 Medical tablet Branch metoprolol Yes [id number] Take 1 [facility] tartrate 7-26 [facility] (Lopressor) 00:00: (100 mg 100 MG 00 total) by tablet mouth 2 (two) times a day AND 0.5 tablets (50 mg total) every night. metoprolol Yes [id number] Take 1 [facility] tartrate 7-26 [facility] (Lopressor) 00:00: (100 mg 100 MG 00 total) by tablet mouth 2 (two) times a day AND 0.5 tablets (50 mg total) every night. raltegravir Yes 400mg Q.5D Take 400 [facility] (Isentress) 7-23 mg by [facility] 400 MG 08:03: mouth 2 tablet 05 (two) times a day. esomeprazol Yes 20mg QD Take 20 mg [...] area in groin) hydrALAZINE 0 Yes 50mg Q.[id number] Take 50 mg [facility] (APRESOLINE 7-19 [id number] [facility] ) 50 MG [...] area in groin) hydrALAZINE 0 Yes 50mg Q.[id number] Take 50 mg [facility] (APRESOLINE 7-19 [id number] [facility] mouth [facility] ) 50 MG [...] (affected area in groin) hydrALAZINE Yes 50mg Q.[id number] Take 50 mg [facility] (APRESOLINE 7-19 [id number] [facility] mouth [facility] ) 50 MG [...] (affected area in groin) hydrALAZINE Yes 50mg Q.[id number] Take 50 mg [facility] (APRESOLINE 7-19 [id number] [facility] mouth [facility] ) 50 MG [...] area in groin) hydrALAZINE 0 Yes 50mg Q.[id number] Take 50 mg [facility] (APRESOLINE 7-19 [id number] [facility] mouth [facility] ) 50 MG [...] area in groin) hydrALAZINE 0 Yes 50mg Q.[id number] Take 50 mg [facility] (APRESOLINE 7-19 [id number] [facility] mouth [facility] ) 50 MG [...] (affected area in groin) hydrALAZINE Yes 50mg Q.[id number] Take 50 mg [facility] (APRESOLINE 7-19 [id number] by mouth 3 [facility] ) 50 MG [...] area in groin) hydrALAZINE 2020-0 Yes 50mg Q.[id number] Take 50 mg [facility] (APRESOLINE 7-19 [id number] [facility] mouth [facility] ) 50 MG [...] area in groin) hydrALAZINE 0 Yes 50mg Q.[id number] Take 50 mg [facility] (APRESOLINE 7-19 [id number] [facility] ) 50 MG [...] (affected area in groin) hydrALAZINE Yes 50mg Q.[id number] Take 50 mg [facility] (APRESOLINE 7-19 [id number] [facility] mouth [facility] ) 50 MG [...] area in groin) hydrALAZINE 0 Yes 50mg Q.[id number] Take 50 mg [facility] (APRESOLINE 7-19 [id number] [facility] mouth [facility] ) 50 MG [...] area in groin) hydrALAZINE 0 Yes 50mg Q.[id number] Take 50 mg [facility] (APRESOLINE 7-19 [id number] [facility] ) 50 MG [...] (affected area in groin) hydrALAZINE Yes 50mg Q.[id number] Take 50 mg [facility] (APRESOLINE 7-19 [id number] [facility] mouth [facility] ) 50 MG [...] area in groin) hydrALAZINE 0 Yes 50mg Q.74370611 Take 50 mg [facility] (APRESOLINE 7-19 [id number] [facility] ) 50 MG [...] area in groin) hydrALAZINE 0 Yes 50mg Q.[id number] Take 50 mg [facility] (APRESOLINE 7-19 [id number] [facility] ) 50 MG [...] area in groin) hydrALAZINE 0 Yes 50mg Q.[id number] Take 50 mg [facility] (APRESOLINE 7-19 [id number] [facility] ) 50 MG [...] (affected area in groin) hydrALAZINE Yes 50mg Q.[id number] Take 50 mg [facility] (APRESOLINE 7-[id number] [facility] ) 50 MG [...] area in groin) hydrALAZINE 0 Yes 50mg Q.[id number] Take 50 mg [facility] (APRESOLINE 7-19 [id number] [facility] ) 50 MG [...] area in groin) hydrALAZINE 0 Yes 50mg Q.[id number] Take 50 mg [facility] (APRESOLINE 7-19 [id number] [facility] ) 50 MG [...] (affected area in groin) hydrALAZINE Yes 50mg Q.[id number] Take 50 mg [facility] (APRESOLINE - [id number] by mouth [facility] ) 50 MG [...] area in groin) hydrALAZINE 0 Yes 50mg Q.17381814 Take 50 mg [facility] (APRESOLINE 7-19 [id number] [facility] ) 50 MG [...] area in groin) hydrALAZINE 0 Yes 50mg Q.[id number] Take 50 mg [facility] (APRESOLINE 7-[id number] [facility] ) 50 MG [...] area in groin) hydrALAZINE 0 Yes 50mg Q.[id number] Take 50 mg [facility] (APRESOLINE - [id number] by mouth [facility] ) 50 MG [...] area in groin) hydrALAZINE 0 Yes 50mg Q.[id number] Take 50 mg [facility] (APRESOLINE 7-19 [id number] [facility] ) 50 MG [...] area in groin) hydrALAZINE 2020-0 Yes 50mg Q.[id number] Take 50 mg [facility] (APRESOLINE 7-[id number] [facility] ) 50 MG [...] Yes Q.5D Apply 1 [facility] (TEMOVATE) [address] 0.05 % 10:51: [facility] 25 topically l 2 (two) times a day. (affected area in groin) hydrALAZINE Yes 50mg Q.[id number] Take 50 mg [facility] (APRESOLINE 7-19 [id number] [facility] ) 50 MG [...] (affected area in groin) hydrALAZINE Yes 50mg Q.[id number] Take 50 mg [facility] (APRESOLINE 7-19 [id number] [facility] ) 50 MG [...] area in groin) hydrALAZINE 0 Yes 50mg Q.[id number] Take 50 mg [facility] (APRESOLINE 7-19 [id number] [facility] mouth [facility] ) 50 MG [...] area in groin) hydrALAZINE 0 Yes 50mg Q.[id number] Take 50 mg [facility] (APRESOLINE 7-19 [id number] [facility] mouth [facility] ) 50 MG [...] (affected area in groin) hydrALAZINE Yes 50mg Q.[id number] Take 50 mg [facility] (APRESOLINE - [id number] by mouth [facility] ) 50 MG [...] area in groin) hydrALAZINE 0 Yes 50mg Q.[id number] Take 50 mg [facility] (APRESOLINE 7-19 [id number] [facility] mouth [facility] ) 50 MG [...] area in groin) hydrALAZINE 0 Yes 50mg Q.[id number] Take 50 mg [facility] (APRESOLINE 7-[id number] [facility] ) 50 MG [...] (affected area in groin) hydrALAZINE Yes 50mg Q.[id number] Take 50 mg [facility] (APRESOLINE 7-[id number] mouth [facility] ) 50 MG [...] area in groin) hydrALAZINE 0 Yes 50mg Q.[id number] Take 50 mg [facility] (APRESOLINE 7-19 [id number] [facility] mouth [facility] ) 50 MG [...] area in groin) hydrALAZINE 2020-0 Yes 50mg Q.[id number] Take 50 mg [facility] (APRESOLINE 7-19 [id number] [facility] mouth [facility] ) 50 MG [...] area in groin) hydrALAZINE 0 Yes 50mg Q.[id number] Take 50 mg [facility] (APRESOLINE 7-[id number] [facility] ) 50 MG [...] (affected area in groin) hydrALAZINE Yes 50mg Q.[id number] Take 50 mg [facility] (APRESOLINE - [id number] by mouth 3 [facility] ) 50 MG [...] area in groin) hydrALAZINE 0 Yes 50mg Q.[id number] Take 50 mg [facility] (APRESOLINE 7-19 [id number] [address] mouth [facility] ) 50 MG [...] area in groin) hydrALAZINE 2020-0 Yes 50mg Q.[id number] Take 50 mg [facility] (APRESOLINE 7-19 [id number] [facility] mouth [facility] ) 50 MG [...] area in groin) hydrALAZINE 0 Yes 50mg Q.[id number] Take 50 mg [facility] (APRESOLINE - [id number] by mouth [facility] ) 50 MG [...] area in groin) hydrALAZINE 0 Yes 50mg Q.[id number] Take 50 mg [facility] (APRESOLINE 7-19 [id number] [facility] mouth [facility] ) 50 MG [...] area in groin) hydrALAZINE 2020-0 Yes 50mg Q.[id number] Take 50 mg [facility] (APRESOLINE 7-19 [id number] [facility] mouth [facility] ) 50 MG [...] area in groin) hydrALAZINE 0 Yes 50mg Q.[id number] Take 50 mg [facility] (APRESOLINE 7-19 [id number] [facility] ) 50 MG [...] (affected area in groin) hydrALAZINE Yes 50mg Q.[id number] Take 50 mg [facility] (APRESOLINE 7-[id number] [facility] ) 50 MG [...] area in groin) hydrALAZINE 0 Yes 50mg Q.[id number] Take 50 mg [facility] (APRESOLINE -19 [id number] [address] mouth [facility] ) 50 MG [...] area in groin) hydrALAZINE 0 Yes 50mg Q.[id number] Take 50 mg [facility] (APRESOLINE 7-19 [id number] [facility] mouth [facility] ) 50 MG [...] (affected area in groin) hydrALAZINE Yes 50mg Q.[id number] Take 50 mg [facility] (APRESOLINE 7-[id number] mouth [facility] ) 50 MG [...] area in groin) hydrALAZINE 0 Yes 50mg Q.[id number] Take 50 mg [facility] (APRESOLINE 7-[id number] mouth [facility] ) 50 MG [...] area in groin) hydrALAZINE 2020-0 Yes 50mg Q.[id number] Take 50 mg [facility] (APRESOLINE 7-[id number] [facility] ) 50 MG [...] (affected area in groin) hydrALAZINE Yes 50mg Q.47080800 Take 50 mg [facility] (APRESOLINE 7-[id number] [facility] ) 50 MG [...] (affected area in groin) hydrALAZINE Yes 50mg Q.[id number] Take 50 mg [facility] (APRESOLINE 7-[id number] mouth [facility] ) 50 MG [...] area in groin) hydrALAZINE 0 Yes 50mg Q.[id number] Take 50 mg [facility] (APRESOLINE 7-[id number] mouth [facility] [address] ) 50 MG [...] (affected area in groin) hydrALAZINE Yes 50mg Q.[id number] Take 50 mg [facility] (APRESOLINE 7-[id number] [facility] [address] ) 50 MG [...] (affected area in groin) hydrALAZINE Yes 50mg Q.[id number] Take 50 mg [facility] (APRESOLINE 7-19 [id number] mouth [facility] ) 50 MG [...] area in groin) hydrALAZINE 0 Yes 50mg Q.[id number] Take 50 mg [facility] (APRESOLINE 7-[id number] [facility] [address] ) 50 MG [...] (affected area in groin) hydrALAZINE Yes 50mg Q.[id number] Take 50 mg [facility] (APRESOLINE 7-[id number] [facility] [address] ) 50 MG [...] (affected area in groin) hydrALAZINE Yes 50mg Q.[id number] Take 50 mg [facility] (APRESOLINE 7-[id number] [facility] [address] ) 50 MG [...] area in groin) hydrALAZINE 0 Yes 50mg Q.[id number] Take 50 mg [facility] (APRESOLINE 7-[id number] [facility] [address] ) 50 MG [...] area in groin) hydrALAZINE 0 Yes 50mg Q.[id number] Take 50 mg [facility] (APRESOLINE 7-[id number] mouth [facility] ) 50 MG [...] (affected area in groin) hydrALAZINE Yes 50mg Q.[id number] Take 50 mg [facility] (APRESOLINE 7-[id number] mouth [facility] ) 50 MG [...] (affected area in groin) hydrALAZINE Yes 50mg Q.[id number] Take 50 mg [facility] (APRESOLINE 7-[id number] mouth [facility] ) 50 MG [...] area in groin) hydrALAZINE 2021-0 Yes 50mg Q.[id number] Take 50 mg [facility] (APRESOLINE 7-[id number] mouth [facility] [address] ) 50 MG [...] (affected area in groin) hydrALAZINE Yes 50mg Q.[id number] Take 50 mg [facility] (APRESOLINE 7-[id number] mouth [facility] [address] ) 50 MG [...] (affected area in groin) hydrALAZINE Yes 50mg Q.[id number] Take 50 mg [facility] (APRESOLINE 7-[id number] mouth [facility] [address] ) 50 MG [...] area in groin) hydrALAZINE 0 Yes 50mg Q.[id number] Take 50 mg [facility] (APRESOLINE 7-[id number] mouth [facility] [address] ) 50 MG [...] (affected area in groin) hydrALAZINE Yes 50mg Q.[id number] Take 50 mg [facility] (APRESOLINE 7-[id number] mouth [address] ) 50 MG [...] (affected area in groin) hydrALAZINE Yes 50mg Q.[id number] Take 50 mg [facility] (APRESOLINE 7-[id number] mouth [facility] [address] ) 50 MG [...] area in groin) hydrALAZINE 0 Yes 50mg Q.[id number] Take 50 mg [facility] (APRESOLINE 7-[id number] mouth [facility] [address] ) 50 MG [...] area in groin) hydrALAZINE 0 Yes 50mg Q.[id number] Take 50 mg [facility] (APRESOLINE 7-[id number] mouth [facility] ) 50 MG [...] tablet 25 daily. l nystatin-tr 0 Yes [id number] Apply to [facility] iainolone 7-06 area(s) 3 ity of cream 00:00: (three) [place] 00 times Medical daily. Branch nystatin-tr 2020-0 Yes [id number] Apply to [facility] iainolone 7-06 area(s) 3 ity of cream 00:00: (three) [place] 00 times Medical daily. Branch nystatin-tr 202-0 Yes [id number] Apply to [facility] iainolone 7-06 area(s) 3 ity of cream 00:00: (three) [place] 00 times Medical daily. Branch nystatin-tr 202-0 Yes [id number] Apply to [facility] iainolone 7-06 area(s) 3 ity of cream 00:00: (three) [place] 00 times Medical daily. Branch nystatin-tr 2021-0 Yes [id number] Apply to [facility] iamcinolone 7-06 area(s) 3 ity of cream 00:00: (three) [place] 00 times Medical daily. Branch nystatin-tr 2021-0 Yes [id number] Apply to [facility] iamcinolone 7-06 area(s) 3 ity of cream 00:00: (three) [place] 00 times Medical daily. Branch nystatin-tr 2021-0 Yes [id number] Apply to [facility] iamcinolone 7-06 area(s) 3 ity of cream 00:00: (three) [place] 00 times Medical daily. Branch nystatin-tr 2021-0 Yes [id number] Apply to [facility] iamcinolone 7-06 area(s) 3 ity of cream 00:00: (three) [place] 00 times Medical daily. Branch nystatin-tr 2021-0 Yes [id number] Apply to [facility] iamcinolone 7-06 area(s) 3 ity of cream 00:00: (three) [place] 00 times Medical daily. Branch nystatin-tr 2021-0 Yes [id number] Apply to [facility] iamcinolone 7-06 area(s) 3 ity of cream 00:00: (three) [place] 00 times Medical daily. Branch nystatin-tr 2021-0 Yes [id number] Apply to [facility] iamcinolone 7-06 area(s) 3 ity of cream 00:00: (three) [place] 00 times Medical daily. Branch nystatin-tr 2021-0 Yes [id number] Apply to [facility] iamcinolone 7-06 area(s) 3 ity of cream 00:00: (three) [place] 00 times Medical daily. Branch nystatin-tr 2021-0 Yes [id number] Apply to [facility] iamcinolone 7-06 area(s) 3 ity of cream 00:00: (three) [place] 00 times Medical daily. Branch nystatin-tr 2021-0 Yes [id number] Apply to [facility] iamcinolone 7-06 area(s) 3 ity of cream 00:00: (three) [place] 00 times Medical daily. Branch nystatin-tr 2021-0 Yes [id number] Apply to [facility] iamcinolone 7-06 area(s) 3 ity of cream 00:00: (three) [place] 00 times Medical daily. Branch nystatin-tr 2021-0 Yes [id number] Apply to [facility] iamcinolone 7-06 area(s) 3 ity of cream 00:00: (three) [place] 00 times Medical daily. Branch nystatin-tr 2021-0 Yes [id number] Apply to [facility] iamcinolone 7-06 area(s) 3 ity of cream 00:00: (three) [place] 00 times Medical daily. Branch nystatin-tr 2021-0 Yes [id number] Apply to [facility] iamcinolone 7-06 area(s) 3 ity of cream 00:00: (three) [place] 00 times Medical daily. Branch nystatin-tr 2021-0 Yes [id number] Apply to [facility] iamcinolone 7-06 area(s) 3 ity of cream 00:00: (three) [place] 00 times Medical daily. Branch nystatin-tr 2021-0 Yes [id number] Apply to [facility] iamcinolone 7-06 area(s) 3 ity of cream 00:00: (three) [place] 00 times Medical daily. Branch nystatin-tr 2021-0 Yes [id number] Apply to [facility] iamcinolone 7-06 area(s) 3 ity of cream 00:00: (three) [place] 00 times Medical daily. Branch nystatin-tr 2021-0 Yes [id number] Apply to [facility] iamcinolone 7-06 area(s) 3 ity of cream 00:00: (three) [place] 00 times Medical daily. Branch nystatin-tr 2021-0 Yes [id number] Apply to [facility] iamcinolone 7-06 area(s) 3 ity of cream 00:00: (three) [place] 00 times Medical daily. Branch nystatin-tr 1-0 Yes [id number] Apply to [facility] iamcinolone 7-06 area(s) 3 ity of cream 00:00: (three) [place] 00 times Medical daily. Branch budesonide- 2020-0 2020- No 1{puff} QD Inhale 1 [facility] formoteroL 6-25 06-[address] (SYMBICORT) 14:37: 00:00 morning. H ospita 160-4.5 02 :00 l mcg/actuati on inhaler hydrALAZINE 2020-0 Yes [id number] 50mg [id number] Take 1 [place] (Apresoline - [id number] tablet (50 Health ) 50 MG 00:00: 3D mg total) tablet 00 by mouth 3 (three) times a day. hydrALAZINE 0 Yes [id number] 50mg [id number] Take 1 [place] (Apresoline 6- [id number] tablet (50 Health ) 50 MG 00:00: [...] 00:00: ointment 00 nystatin 2020-0 1- No [id number] Q.25D Take 5 mL [facility] (MYCOSTATIN 5-17 [...] ia 4-10 (Same as: l 14:00: Norvasc) [place] emtricitabi No Notes: Caesar lisa ne 200 [...] ia 4-10 (Same as: l 14:00: Zoloft) [place] Sertraline No Notes: Memor ia 4-10 (Same as: l 14:00: Zoloft) [place] pantoprazol No Notes: [place] lisa e 4-10 [...] ia 4-10 (Same as: l 14:00: Zoloft) [place] 00 pantoprazol No Notes: [place] lisa e 4-10 Tablet l 14:00: should not [place] 00 be chewed or crushed. (Same as: Protonix) Amiodarone No Notes: Memor ia 4-10 (Same as: l 14:00: Cordarone) [place] Amlodipine No Notes: Memor ia 4-10 (Same as: l 14:00: Norvasc) [place] emtricitabi No Notes: Caesar lisa ne 200 MG / 4-10 (Same as: l tenofovir 14:00: Descovy) Herm ariel alafenamide 00 Non-formul 25 MG Oral nancy Tablet [Descovy] Sertraline No Notes: Memor ia 4-10 (Same as: l 14:00: Zoloft) [place] pantoprazol No Notes: [place] lisa e 4-10 Tablet l 14:00: should not [place] 00 be chewed or crushed. (Same as: Protonix) Amiodarone No Notes: Memor ia 4-10 (Same as: l 14:00: Cordarone) [place] Amlodipine No Notes: Memor ia 4-10 (Same as: l 14:00: Norvasc) [place] emtricitabi No Notes: Caesar lisa ne 200 MG / 4-10 (Same as: l tenofovir 14:00: Descovy) Herm ariel alafenamide 00 Non-formul 25 MG Oral nancy Tablet [Descovy] Sertraline No Notes: Memor ia 4-10 (Same as: l 14:00: Zoloft) [place] pantoprazol No Notes: Caesar lisa e 4-10 Tablet l 14:00: should not [place] 00 be chewed or crushed. (Same as: Protonix) Amiodarone No Notes: Memor ia 4-10 (Same as: l 14:00: Cordarone) [place] Amlodipine No Notes: Memor ia 4-10 (Same as: l 14:00: Norvasc) [place] 00 emtricitabi No Notes: Caesar lisa ne 200 MG / 4-10 (Same as: l tenofovir 14:00: Descovy) Herm ariel alafenamide 00 Non-formul 25 MG Oral nancy Tablet [Descovy] Sertraline No Notes: Memor ia 4-10 (Same as: l 14:00: Zoloft) [place] pantoprazol No Notes: Caesar lisa e 4-10 Tablet l 14:00: should not [place] 00 be chewed or crushed. (Same as: Protonix) Amiodarone No Notes: Memor ia 4-10 (Same as: l 14:00: Cordarone) [place] 00 Amlodipine No Notes: Memor ia 4-10 (Same as: l 14:00: Norvasc) [place] emtricitabi No Notes: Caesar lisa ne 200 MG / 4-10 (Same as: l tenofovir 14:00: Descovy) Herm ariel alafenamide 00 Non-formul 25 MG Oral nancy Tablet [Descovy] Sertraline No Notes: Memor ia 4-10 (Same as: l 14:00: Zoloft) [place] pantoprazol No Notes: Caesar lisa e 4-10 Tablet l 14:00: should not [place] 00 be chewed or crushed. (Same as: Protonix) Amiodarone No Notes: Memor ia 4-10 (Same as: l 14:00: Cordarone) [place] 00 Sucralfate No Notes: May M emoria [...] 0.9% 4-10 (Same as: l 02:00: BD [place] 00 Posiflush) Eliquis No Notes: Memoria 4-10 Same as: l 02:00: Eliquis [place] 00 Hydralazine No Notes: Caesar lisa Hydrochlori [...] 0.9% 4-10 (Same as: l 02:00: BD [place] 00 Posiflush) Eliquis No Notes: Memoria 4-10 Same as: l 02:00: Eliquis [place] Hydralazine No Notes: Caesar lisa Hydrochlori 4-10 [...] M emoria 4-10 interfere l 02:00: w/enteral [place] 00 feeds - Take 1 hr before or 2 hr after antacids, dairy pdt, meals & minerals - On empty stomach. For patients unable to swallow tablet, dissolve in 10mL - 30mL of water or juice and stir before giving. (Same As: Carafate) Saline No Notes: Memoria Flush 0.9% 4-10 (Same as: l 02:00: BD [place] 00 Posiflush) Eliquis No Notes: Memoria 4-10 [...] not exceed l #3 00:12: 4gm/day of [place] acetaminop hen. (Same as: Tylenol with Codeine [...] tartrate - tab, l 22:00: Route: PO, [place] Drug form: TAB, BID, Dosing Weight 97.273, [...] oria 4-09 tab, l 22:00: Route: PO, [place] 00 Drug form: TAB, BID, Dosing Weight [...] oria 4-09 tab, l 22:00: Route: PO, [place] 00 Drug form: TAB, BID, Dosing Weight [...] oria 4-09 tab, l 22:00: Route: PO, [place] 00 Drug form: TAB, BID, Dosing Weight 97.273, kg, Start date: 08/29/20 17:00:00 CDT, Duration: 30 day, Stop date: 09/28/20 9:00:00 CDT metoprolol 1-0 No 100 mg, 1 Me moria tartrate 4-09 tab, l 22:00: Route: PO, [place] 00 Drug form: TAB, BID, Dosing Weight [...] tartrate 4-09 tab, l 22:00: Route: PO, [place] 00 Drug form: TAB, BID, Dosing Weight [...] Notes: Memoria 4-09 (Same l 17:07: as:MORPhin [place] 00 e Sulfate) Morphine No Notes: Memoria 4-09 (Same l 17:07: as:MORPhin [place] 00 e Sulfate) Morphine No Notes: Memoria 4-09 (Same l 17:07: as:MORPhin [place] 00 e Sulfate) Morphine No Notes: Memoria 4-09 (Same l 17:07: as:MORPhin [place] 00 e Sulfate) Morphine No Notes: Memoria 4-09 (Same l 17:07: as:MORPhin [place] 00 e Sulfate) Morphine No Notes: Memoria 4-09 (Same l 17:07: as:MORPhin [place] 00 e Sulfate) Morphine No Notes: Memoria 4-09 (Same l 17:07: as:MORPhin [place] 00 e Sulfate) buPROPion No 150 mg, [...] tab, PO, l oral 15:27: Daily, # [place] enteric 00 30 tab, 0 coated Refill(s), tablet Pharmacy: [facility] 149, 162.56, cm, 08/29/20 5:30:00 CDT, Height, 97.273, kg, 08/29/20 5:30:00 CDT, Weight pantoprazol 2020-0 Yes 40 mg = 1 M emoria e 40 mg 4-09 tab, PO, l oral 15:27: Daily, # [place] enteric 00 30 tab, 0 coated Refill(s), tablet Pharmacy: [facility] 149, 162.56, cm, 08/29/20 5:30:00 CDT, Height, 97.273, kg, 08/29/20 5:30:00 CDT, Weight pantoprazol 2020-0 Yes 40 mg = 1 M emoria e 40 mg 4-09 tab, PO, l oral 15:27: Daily, # [place] enteric 00 30 tab, 0 coated Refill(s), tablet Pharmacy: [place] [id number], 162.56, cm, 08/29/20 5:30:00 CDT, Height, 97.273, kg, 08/29/20 5:30:00 CDT, Weight pantoprazol 2020-0 Yes 40 mg = 1 M emoria e 40 mg 4-09 tab, PO, l oral 15:27: Daily, # [place] enteric 00 30 tab, 0 coated Refill(s), tablet Pharmacy: [facility] 149, 162.56, cm, 08/29/20 5:30:00 CDT, Height, 97.273, kg, 08/29/20 5:30:00 CDT, Weight pantoprazol 2020-0 Yes 40 mg = 1 M emoria e 40 mg 4-09 tab, PO, l oral 15:27: Daily, # [place] enteric 00 30 tab, 0 coated Refill(s), tablet Pharmacy: [place] [address], 162.56, cm, 08/29/20 5:30:00 CDT, Height, 97.273, kg, 08/29/20 5:30:00 CDT, Weight pantoprazol 2020-0 Yes 40 mg = 1 M emoria e 40 mg 4-09 tab, PO, l oral 15:27: Daily, # [place] enteric 00 30 tab, 0 coated Refill(s), tablet Pharmacy: [facility] 149, 162.56, cm, 08/29/20 5:30:00 CDT, Height, 97.273, kg, 08/29/20 5:30:00 CDT, Weight pantoprazol 2020-0 Yes 40 mg = 1 M emoria e 40 mg 4-09 tab, PO, l oral 15:27: Daily, # [place] enteric 00 30 tab, 0 coated Refill(s), tablet Pharmacy: [place] [address], 162.56, cm, 08/29/20 5:30:00 CDT, Height, 97.273, kg, 08/29/20 5:30:00 CDT, Weight pantoprazol 2020-0 No 40 mg = 1 M emoria e 40 mg 4-09 tab, PO, l oral 15:26: Daily, # [place] enteric 00 30 tab, 0 coated Refill(s) tablet sucralfate 2020-0 Yes 1 gm = 1 Mem oria 1 g oral 4-09 tab, PO, l tablet 15:26: Q12H, # 28 Skylar nn 00 tab, 0 Refill(s), Pharmacy: [place] [address], 162.56, cm, 08/29/20 5:30:00 CDT, Height, 97.273, kg, 08/29/20 5:30:00 CDT, Weight pantoprazol 1-0 No 40 mg = 1 M emoria e 40 mg 4-09 tab, PO, l oral 15:26: Daily, # [place] enteric 00 30 tab, 0 coated Refill(s) tablet sucralfate 1-0 Yes 1 gm = 1 Mem oria 1 g oral 4-09 tab, PO, l tablet 15:26: Q12H, # 28 Skyl[place] nn 00 tab, 0 Refill(s), Pharmacy: [place] [address], 162.56, cm, 08/29/20 5:30:00 CDT, Height, 97.273, [...] tab, PO, l oral 15:26: Daily, # [place] enteric 00 30 tab, 0 coated Refill(s) [...] 0.9% 4-09 (Same as: l 15:25: BD [place] 00 Posiflush) Lorazepam No Notes: Memori a 4-09 (Same as: l 15:25: Ativan) [place] 00 Saline No Notes: Memoria Flush 0.9% 4-09 (Same as: l 15:25: BD [place] 00 Posiflush) Saline No Notes: Memoria Flush 0.9% 4-09 (Same as: l 15:25: BD [place] 00 Posiflush) Lorazepam No Notes: Memori a 4-09 (Same as: l 15:25: Ativan) Lorazepam No Notes: Memori a 4-09 (Same as: l 15:25: Ativan) Saline No Notes: Memoria Flush 0.9% 4-09 (Same as: l 15:25: BD [place] 00 Posiflush) Lorazepam No Notes: Memori a 4-09 (Same as: l 15:25: Ativan) Saline No Notes: Memoria Flush 0.9% 4-09 (Same as: l 15:25: BD [place] Posiflush) Lorazepam No Notes: Memori a 4-09 (Same as: l 15:25: Ativan) Saline No Notes: [facility] Flush 0.9% 4-09 (Same as: l 15:25: BD [place] 00 Posiflush) Lorazepam No Notes: Memori a [...] oria ne 08-29 Route: l 14:01: IVP, [place] 00 Q5Min, Dosing Weight 97.273, kg, PRN [...] ia 08-29 Route: l 14:01: IVP, ONCE, [place] 00 Dosing Weight 97.273, kg, PRN Nausea & Vomiting, Start date: 08/29/20 9:01:00 CDT Labetalol 1-0 No 10 mg, Memori a 08-29 Route: l 14:01: IVP, [place] 00 Q5Min, Dosing Weight 97.273, kg, PRN Elevated BP, Start date: 08/29/20 9:01:00 CDT, Duration: 5 doses or times, Stop date: Limited # of times Acetaminoph 2021-0 No 1,000 mg, M emoria en 08-29 Route: PO, l 14:01: Drug form: [place] 00 TAB, ONCE, Dosing Weight 97.273, kg, [...] Memori a 08-29 Route: l 14:01: IVP, [place] 00 Q2MIN, Dosing Weight 97.273, kg, PRN [...] 08-29 Route: PO, l 14:01: Drug form: [place] 00 TAB, ONCE, Dosing Weight 97.273, kg, [...] ia 08-29 Route: l 14:01: IVP, ONCE, [place] 00 Dosing Weight 97.273, kg, PRN Nausea & Vomiting, Start date: 08/29/20 9:01:00 CDT Labetalol 2021-0 No 10 mg, Memori a 08-29 Route: l 14:01: IVP, [place] 00 Q5Min, Dosing Weight 97.273, kg, PRN [...] oria ne 08-29 Route: l 14:01: IVP, [place] 00 Q5Min, Dosing Weight 97.273, kg, PRN Pain Score 7-10, Start date: 08/29/20 9:01:00 CDT, Duration: 4 doses or times, Stop date: Limited # of times Labetalol 2021-0 No 10 mg, Memori a 08-29 Route: l 14:01: IVP, [place] 00 Q5Min, Dosing Weight 97.273, kg, PRN [...] oria ne 08-29 Route: l 14:01: IVP, [place] 00 Q5Min, Dosing Weight 97.273, kg, PRN [...] Memori a 08-29 Route: l 14:01: IVP, [place] 00 Q2MIN, Dosing Weight 97.273, kg, PRN Narcotic Reversal, Start date: 08/29/20 9:01:00 CDT, Duration: 8 doses or times, Stop date: Limited # of times Flumazenil 1-0 No 0.2 mg, Caesar lisa 08-29 Route: l 14:01: IVP, PRN, [place] 00 Dosing Weight 97.273, kg, PRN Benzodiaze pine Reversal, Initial dose, Start date: 08/29/20 9:01:00 CDT, Duration: 30 day, Stop date: 09/28/20 9:00:00 CDT Ondansetron 1-0 No 4 mg, Memor ia 08-29 Route: l 14:01: IVP, ONCE, [place] 00 Dosing Weight 97.273, kg, PRN Nausea [...] ia 08-29 Route: l 14:01: IVP, ONCE, [place] 00 Dosing Weight 97.273, kg, PRN Nausea [...] 08-29 Route: PO, l 14:01: Drug form: [place] 00 TAB, ONCE, Dosing Weight 97.273, kg, [...] lisa 08-29 Route: l 14:01: IVP, PRN, [place] 00 Dosing Weight 97.273, kg, PRN Benzodiaze [...] ia 08-29 Route: l 14:01: IVP, ONCE, [place] 00 Dosing Weight 97.273, kg, PRN Nausea & Vomiting, Start date: 08/29/20 9:01:00 CDT Labetalol 1-0 No 10 mg, Memori a 08-29 Route: l 14:01: IVP, [place] 00 Q5Min, Dosing Weight 97.273, kg, PRN Elevated BP, Start date: 08/29/20 9:01:00 CDT, Duration: 5 doses or times, Stop date: Limited # of times Acetaminoph 1-0 No 1,000 mg, M emoria en 08-29 Route: PO, l 14:01: Drug form: [place] 00 TAB, ONCE, Dosing Weight 97.273, kg, [...] oria ne 08-29 Route: l 14:01: IVP, [place] 00 Q5Min, Dosing Weight 97.273, kg, PRN [...] Memori a 08-29 Route: l 14:01: IVP, [place] 00 Q2MIN, Dosing Weight 97.273, kg, PRN [...] Drug form: l 10 13:15: INJ, Start [place] microgram 00 date: 08/29/20 8:15:00 CDT, Stop date: 08/29/20 9:15:00 CDT norepinephr 2020-0 No Route: IV, Memoria ine (ANES) 08-29 Drug form: l 10 13:15: INJ, Start [place] microgram date: 08/29/20 8:15:00 CDT, Stop date: 08/29/20 9:15:00 CDT norepinephr 2020-0 No Route: IV, Memoria ine (ANES) 08-29 Drug form: l 10 13:15: INJ, Start [place] microgram 00 date: 08/29/20 8:15:00 CDT, Stop date: 08/29/20 9:15:00 CDT norepinephr 2020-0 No Route: IV, Memoria ine (ANES) 4-09 Drug form: l 10 13:15: INJ, Start [place] microgram 00 date: 08/29/20 8:15:00 CDT, Stop date: 08/29/20 9:15:00 CDT Sodium 2021-0 No Route: IV, Memor ia Chloride 4-09 Total l 0.9% IV 12:30: Volume: [place] (ANES) 1000 00 1,000, mL Start date: 08/29/20 7:30:00 CDT, Stop date: 08/29/20 8:30:00 CDT Sodium 2021-0 No Route: IV, Memor ia Chloride 4-09 Total l 0.9% IV 12:30: Volume: [place] (ANES) 1000 00 1,000, mL Start date: 08/29/20 7:30:00 CDT, Stop date: 08/29/20 8:30:00 CDT Sodium 2021-0 No Route: IV, Memor ia Chloride 4-09 Total l 0.9% IV 12:30: Volume: [place] (ANES) 1000 00 1,000, mL Start date: 08/29/20 7:30:00 CDT, Stop date: 08/29/20 8:30:00 CDT Sodium 2021-0 No Route: IV, Memor ia Chloride 4-09 Total l 0.9% IV 12:30: Volume: [place] (ANES) 1000 00 1,000, mL Start date: 08/29/20 7:30:00 CDT, Stop date: 08/29/20 8:30:00 CDT Sodium 2021-0 No Route: IV, Memor ia Chloride 4-09 Total l 0.9% IV 12:30: Volume: [place] (ANES) 1000 00 1,000, mL Start date: 08/29/20 7:30:00 CDT, Stop date: 08/29/20 8:30:00 CDT Sodium 2021-0 No Route: IV, Memor ia Chloride 4-09 Total l 0.9% IV 12:30: Volume: [place] (ANES) 1000 00 1,000, mL Start date: 08/29/20 7:30:00 CDT, Stop date: 08/29/20 8:30:00 CDT Sodium 2021-0 No Route: IV, Memor ia Chloride 4-09 Total l 0.9% IV 12:30: Volume: [place] (ANES) 1000 00 1,000, mL Start date: [...] PO, l Hydrochlori 11:42: Q24H, # 30 [place] de 150 MG 00 tab, 0 Extended Refill(s) Release Tablet 24 HR Yes 150 mg = 1 Memori a Bupropion 4-09 tab, PO, l Hydrochlori 11:42: Q24H, # 30 [place] de 150 MG 00 tab, 0 Extended Refill(s) Release Tablet 24 HR Yes 150 mg = 1 Memori a Bupropion 4-09 tab, PO, l Hydrochlori 11:42: Q24H, # 30 [place] de 150 MG 00 tab, 0 Extended [...] 4- Q12H, tab, l Tablet 11:41: 0 [place] [Eliquis] 00 Refill(s), For Atrial Fibrilatio n apixaban 2020-0 Yes 5 mg, PO, Me moria MG Oral 4- Q12H, tab, l Tablet 11:41: 0 [place] [Eliquis] 00 Refill(s), For Atrial Fibrilatio n apixaban 2020-0 Yes 5 mg, PO, Me moria MG Oral 4- Q12H, tab, l Tablet 11:41: 0 [place] [Eliquis] 00 Refill(s), For Atrial Fibrilatio n apixaban 0 Yes 5 mg, PO, Me moria MG Oral 4-09 Q12H, tab, l Tablet 11:41: 0 [place] [Eliquis] 00 Refill(s), For Atrial Fibrilatio n apixaban 2020-0 Yes 5 mg, PO, Me moria MG Oral 4-09 Q12H, tab, l Tablet 11:41: 0 [place] [Eliquis] 00 Refill(s), For Atrial Fibrilatio n [...] tab, PO, l tablet 11:38: Daily, # [place] 00 90 tab, 3 Refill(s) AMIODarone 0 Yes 200 mg = 1 M emoria 200 mg oral 4-09 tab, PO, l tablet 11:38: Daily, # [place] 00 90 tab, 3 Refill(s) AMIODarone 0 Yes 200 mg = 1 M emoria 200 mg oral 4-09 tab, PO, l tablet 11:38: Daily, # [place] 00 90 tab, 3 Refill(s) AMIODarone Yes [...] l times a day. Immunizations Ordered Filled Date Status Comments Source Immunization Name Immunization Name SARS-COV-2 COVID-19 2022-03-05 Completed Unive rsity [...] [facility] [place] 65+ (FLUAD) SARS-COV-2 COVID-19 2020-07-23 Completed Unive rsity of PFIZER VACCINE 00:00:00 [facility] SARS-COV-2 COVID-19 2020-07-23 Completed Unive rsity of PFIZER VACCINE 00:00:00 [facility] SARS-COV-2 COVID-19 2020-07-23 Completed Unive rsity of PFIZER VACCINE 00:00:00 [facility] SARS-COV-2 COVID-19 2020-07-23 Completed Unive rsity of PFIZER VACCINE 00:00:00 [facility] SARS-COV-2 COVID-19 2020-07-23 Completed Unive rsity of PFIZER VACCINE 00:00:00 [facility] SARS-COV-2 COVID-19 2020-07-23 Completed Unive rsity of PFIZER VACCINE 00:00:00 [facility] SARS-COV-2 COVID-19 2020-07-23 Completed Unive rsity of PFIZER VACCINE 00:00:00 [facility] SARS-COV-2 COVID-19 2020-07-23 Completed Unive rsity of PFIZER VACCINE 00:00:00 [facility] SARS-COV-2 COVID-19 2020-07-23 Completed Unive rsity of PFIZER VACCINE 00:00:00 [facility] SARS-COV-2 COVID-19 2020-07-23 Completed Unive rsity of PFIZER VACCINE 00:00:00 [facility] SARS-COV-2 COVID-19 2020-07-23 Completed Unive rsity of PFIZER VACCINE 00:00:00 [facility] SARS-COV-2 COVID-19 2020-07-23 Completed Unive rsity of PFIZER VACCINE 00:00:00 [facility] SARS-COV-2 COVID-19 2020-07-23 Completed Unive rsity of PFIZER VACCINE 00:00:00 [facility] SARS-COV-2 COVID-19 2020-07-23 Completed Unive rsity of PFIZER VACCINE 00:00:00 [facility] SARS-COV-2 COVID-19 2020-07-23 Completed Unive rsity of PFIZER VACCINE 00:00:00 [facility] SARS-COV-2 COVID-19 2020-07-23 Completed Unive rsity of PFIZER VACCINE 00:00:00 [facility] SARS-COV-2 COVID-19 2020-07-23 Completed Unive rsity of PFIZER VACCINE 00:00:00 [facility] SARS-COV-2 COVID-19 2020-07-23 Completed Unive rsity of PFIZER VACCINE 00:00:00 [facility] SARS-COV-2 COVID-19 2020-07-23 Completed Unive rsity of PFIZER VACCINE 00:00:00 [facility] SARS-COV-2 COVID-19 2020-07-23 Completed Unive rsity of PFIZER VACCINE 00:00:00 [facility] PFIZER COVID-19 2020-07-23 Completed [facility] VACCINATION 00:00:00 [facility] PFIZER COVID-19 2020-07-23 Completed [facility] MRNA VACCINATION 00:00:00 [facility] PFIZER COVID-19 2020-07-23 Completed [facility] MRNA VACCINATION 00:00:00 [facility] PFIZER COVID-19 2020-07-23 Completed [facility] MRNA VACCINATION 00:00:00 [facility] PFIZER COVID-19 2020-07-23 Completed [facility] MRNA VACCINATION 00:00:00 [facility] PFIZER COVID-19 2020-07-23 Completed [facility] MRNA VACCINATION 00:00:00 [facility] PFIZER COVID-19 2020-07-23 Completed [facility] MRNA VACCINATION 00:00:00 [facility] PFIZER COVID-19 2020-07-23 Completed [facility] MRNA VACCINATION 00:00:00 [facility] PFIZER COVID-19 2020-07-23 Completed [facility] MRNA VACCINATION 00:00:00 [facility] PFIZER COVID-19 2020-07-23 Completed [facility] MRNA VACCINATION 00:00:00 [facility] PFIZER COVID-19 2020-07-23 Completed [facility] MRNA VACCINATION 00:00:00 [facility] PFIZER COVID-19 2020-07-23 Completed [facility] MRNA VACCINATION 00:00:00 [facility] PFIZER COVID-19 2020-07-23 Completed [facility] MRNA VACCINATION 00:00:00 [facility] PFIZER COVID-19 2020-07-23 Completed [facility] MRNA VACCINATION 00:00:00 [facility] PFIZER COVID-19 2020-07-23 Completed [facility] MRNA VACCINATION 00:00:00 [facility] PFIZER COVID-19 2020-07-23 Completed [facility] MRNA VACCINATION 00:00:00 [facility] PFIZER COVID-19 2020-07-23 Completed [facility] MRNA VACCINATION 00:00:00 [facility] PFIZER COVID-19 2020-07-23 Completed [facility] MRNA VACCINATION 00:00:00 [facility] PFIZER COVID-19 2020-07-23 Completed [facility] MRNA VACCINATION 00:00:00 [facility] PFIZER COVID-19 2020-07-23 Completed [facility] MRNA VACCINATION 00:00:00 [facility] PFIZER COVID-19 2020-07-23 Completed [facility] MRNA VACCINATION 00:00:00 [facility] PFIZER COVID-19 2020-07-23 Completed [facility] MRNA VACCINATION 00:00:00 [facility] PFIZER COVID-19 2020-07-23 Completed [facility] MRNA VACCINATION 00:00:00 [facility] PFIZER COVID-19 2020-07-23 Completed [facility] MRNA VACCINATION 00:00:00 [facility] PEG COVID-19 2020-07-23 Completed [facility] MRNA VACCINATION 00:00:00 [facility] PEG COVID-19 2020-07-23 Completed [facility] MRNA VACCINATION 00:00:00 [facility] PFIZER COVID-19 2020-07-23 Completed [facility] MRNA VACCINATION 00:00:00 [facility] PEG COVID-19 2020-07-23 Completed [facility] MRNA VACCINATION 00:00:00 [facility] PFIZER COVID-19 2020-07-23 Completed [facility] MRNA VACCINATION 00:00:00 [facility] PEG COVID-19 2020-07-23 Completed [facility] MRNA VACCINATION 00:00:00 [facility] PEG COVID-19 2020-07-23 Completed [facility] MRNA VACCINATION 00:00:00 [facility] PEG COVID-19 2020-07-23 Completed [facility] MRNA VACCINATION 00:00:00 [facility] PEG COVID-19 2020-07-23 Completed [facility] MRNA VACCINATION 00:00:00 [facility] PEG COVID-19 2020-07-23 Completed [facility] MRNA VACCINATION 00:00:00 [facility] PEG COVID-19 2020-07-23 Completed [facility] MRNA VACCINATION 00:00:00 [facility] PEG COVID-19 2020-07-23 Completed [facility] MRNA VACCINATION 00:00:00 [facility] PEG COVID-19 2020-07-23 Completed [facility] MRNA VACCINATION 00:00:00 [facility] PFIZER COVID-19 2020-07-23 Completed [facility] MRNA VACCINATION 00:00:00 [facility] PEG COVID-19 2020-07-23 Completed [facility] MRNA VACCINATION 00:00:00 [facility] PFIZER COVID-19 2020-07-23 Completed [facility] MRNA VACCINATION 00:00:00 [facility] PFIZER COVID-19 2020-07-23 Completed [facility] MRNA VACCINATION 00:00:00 [facility] PFIZER COVID-19 2020-07-23 Completed [facility] MRNA VACCINATION 00:00:00 [facility] PFIZER COVID-19 2020-07-23 Completed [facility] MRNA VACCINATION 00:00:00 [facility] PFIZER COVID-19 2020-07-23 Completed [facility] MRNA VACCINATION 00:00:00 [facility] TRAYID-19 2020-07-23 Completed [facility] MRNA VACCINATION 00:00:00 [facility] PFIZER COVID-19 2020-07-23 Completed [facility] MRNA VACCINATION 00:00:00 [facility] PFIZER COVID-19 2020-07-23 Completed [facility] MRNA VACCINATION 00:00:00 [facility] PEG COVID-19 2020-07-23 Completed [facility] MRNA VACCINATION 00:00:00 [facility] PEG COVID-19 2020-07-23 Completed [facility] MRNA VACCINATION 00:00:00 [facility] PFIZER COVID-19 2020-07-23 Completed [facility] MRNA VACCINATION 00:00:00 [facility] PEG COVID-19 2020-07-23 Completed [facility] MRNA VACCINATION 00:00:00 [facility] PEG COVID-19 2020-07-23 Completed [facility] MRNA VACCINATION 00:00:00 [facility] PEG COVID-19 2020-07-23 Completed [facility] MRNA VACCINATION 00:00:00 [facility] PEG COVID-19 2020-07-23 Completed [facility] VACCINATION 00:00:00 [facility] PEG COVID-19 2020-07-23 Completed [facility] M[facility] VACCINATION 00:00:00 [facility] PEG COVID-19 2020-07-23 Completed [facility] VACCINATION 00:00:00 [facility] PEG COVID-19 2020-07-23 Completed [facility] VACCINATION 00:00:00 [facility] PEG COVID-19 2020-07-23 Completed [facility] VACCINATION 00:00:00 [facility] PEG COVID-19 2020-07-23 Completed [facility] VACCINATION 00:00:00 [facility] PEG COVID-19 2020-07-23 Completed [facility] VACCINATION 00:00:00 [facility] PFIZER COVID-19 2020-07-23 Completed [facility] VACCINATION 00:00:00 [facility] PEG COVID-19 2020-07-23 Completed [facility] VACCINATION 00:00:00 [facility] PFIZER COVID-19 2020-07-23 Completed [facility] VACCINATION 00:00:00 [facility] PFIZER COVID-19 2020-07-23 Completed [facility] VACCINATION 00:00:00 [facility] PFIZER COVID-19 2020-07-23 Completed [facility] VACCINATION 00:00:00 [facility] PFIZER COVID-19 2020-07-23 Completed [facility] VACCINATION 00:00:00 [facility] PFIZER COVID-19 2020-07-23 Completed [facility] VACCIN[facility] 00:00:00 [facility] PFIZER COVID-19 2020-07-23 Completed [facility] VACCINATION 00:00:00 [facility] SARS-COV-2 COVID-19 2020-07-02 Completed [facility] PFIZER VACCINE 00:00:00 [facility] SARS-COV-2 COVID-19 2020-07-02 Completed [facility] of PFIZER VACCINE 00:00:00 [facility] SARS-COV-2 COVID-19 2020-07-02 Completed [facility] of PFIZER VACCINE 00:00:00 [facility] SARS-COV-2 COVID-19 2020-07-02 Completed [facility] of PFIZER VACCINE 00:00:00 [facility] SARS-COV-2 COVID-19 2020-07-02 Completed [facility] of PFIZER VACCINE 00:00:00 [facility] SARS-COV-2 COVID-19 2020-07-02 Completed [facility]ive [facility] of PFIZER VACCINE 00:00:00 [facility] SARS-COV-2 COVID-19 2020-07-02 Completed [facility] of PFIZER VACCINE 00:00:00 [facility] SARS-COV-2 COVID-19 2020-07-02 Completed [facility]ive [facility] of PFIZER VACCINE 00:00:00 [facility] SARS-COV-2 COVID-19 2020-07-02 Completed [facility] of PFIZER VACCINE 00:00:00 [facility] SARS-COV-2 COVID-19 2020-07-02 Completed [facility] of PFIZER VACCINE 00:00:00 [facility] SARS-COV-2 COVID-19 2020-07-02 Completed [facility] of PFIZER VACCINE 00:00:00 [facility] SARS-COV-2 COVID-19 2020-07-02 Completed [facility] of PFIZER VACCINE 00:00:00 [facility] SARS-COV-2 COVID-19 2020-07-02 Completed [...] [facility] PFIZER COVID-19 2020-07-02 Completed [facility] VACCINATION 00:00:00 [facility] PFIZER COVID-19 2020-07-02 Completed [facility] VACCINATION 00:00:00 [facility] PFIZER COVID-19 2020-07-02 Completed [facility] VACCINATION 00:00:00 [facility] PFIZER COVID-19 2020-07-02 Completed [facility] VACCINATION 00:00:00 [facility] PFIZER COVID-19 2020-07-02 Completed [facility] VACCINATION 00:00:00 [facility] PFIZER COVID-19 2020-07-02 Completed [facility] VACCINATION 00:00:00 [facility] PFIZER COVID-19 2020-07-02 Completed [facility] VACCINATION 00:00:00 [facility] PFIZER COVID-19 2020-07-02 Completed [facility] VACCINATION 00:00:00 [facility] PFIZER COVID-19 2020-07-02 Completed [facility] VACCINATION 00:00:00 [facility] PFIZER COVID-19 2020-07-02 Completed [facility] VACCINATION 00:00:00 [facility] PFIZER COVID-19 2020-07-02 Completed [facility] VACC[facility] 00:00:00 [facility] PFIZER COVID-19 2020-07-02 Completed [facility] VACCINATION 00:00:00 [facility] PFIZER COVID-19 2020-07-02 Completed [facility] VACCINATION 00:00:00 [facility] PFIZER COVID-19 2020-07-02 Completed [facility] VACC[facility] 00:00:00 [facility] PFIZER COVID-19 2020-07-02 Completed [facility] VACCINATION 00:00:00 [facility] PFIZER COVID-19 2020-07-02 Completed [facility] VACCINATION 00:00:00 [facility] PFIZER COVID-19 2020-07-02 Completed [facility] VACCINATION 00:00:00 [facility] PFIZER COVID-19 2020-07-02 Completed [facility] VACCINATION 00:00:00 [facility] PFIZER COVID-19 2020-07-02 Completed [facility] VACCINATION 00:00:00 [facility] PFIZER COVID-19 2020-07-02 Completed [facility] VACCINATION 00:00:00 [facility] PFIZER COVID-19 2020-07-02 Completed [facility] VACCINATION 00:00:00 [facility] PFIZER COVID-19 2020-07-02 Completed [facility] VACCINATION 00:00:00 [facility] PFIZER COVID-19 2020-07-02 Completed [facility] VACCINATION 00:00:00 [facility] PFIZER COVID-19 2020-07-02 Completed [facility] VACCINATION 00:00:00 [facility] PEG COVID-19 2020-07-02 Completed [facility] VACCINATION 00:00:00 [facility] PFIZER COVID-19 2020-07-02 Completed [facility] VACCINATION 00:00:00 [facility] PFIZER COVID-19 2020-07-02 Completed [facility] VACCINATION 00:00:00 [facility] PFIZER COVID-19 2020-07-02 Completed [facility] VACCINATION 00:00:00 [facility] PFIZER COVID-19 2020-07-02 Completed [facility] VACCINATION 00:00:00 [facility] PFIZER COVID-19 2020-07-02 Completed [facility] VACCINATION 00:00:00 [facility] PFIZER COVID-19 2020-07-02 Completed [facility] VACCINATION 00:00:00 [facility] PFIZER COVID-19 2020-07-02 Completed [facility] VACCINATION 00:00:00 [facility] PFIZER COVID-19 2020-07-02 Completed [facility] VACCINATION 00:00:00 [facility] PFIZER COVID-19 2020-07-02 Completed [facility] VACCINATION 00:00:00 [facility] PFIZER COVID-19 2020-07-02 Completed [facility] VACCINATION 00:00:00 [facility] PFIZER COVID-19 2020-07-02 Completed [facility] VACCINATION 00:00:00 [facility] PFIZER COVID-19 2020-07-02 Completed [facility] VACCINATION 00:00:00 [facility] PFIZER COVID-19 2020-07-02 Completed [facility] VACCINATION 00:00:00 [facility] PFIZER COVID-19 2020-07-02 Completed [facility] VACCINATION 00:00:00 [facility] PFIZER COVID-19 2020-07-02 Completed [facility] VACCINATION 00:00:00 [facility] PFIZER COVID-19 2020-07-02 Completed [facility] VACCINATION 00:00:00 [facility] PFIZER COVID-19 2020-07-02 Completed [facility] VACCINATION 00:00:00 [facility] PFIZER COVID-19 2020-07-02 Completed [facility] VACCINATION 00:00:00 [facility] PFIZER COVID-19 2020-07-02 Completed [facility] VACCINATION 00:00:00 [facility] PFIZER COVID-19 2020-07-02 Completed [facility] VACCINATION 00:00:00 [facility] PFIZER COVID-19 2020-07-02 Completed [facility] VACCINATION 00:00:00 [facility] PFIZER COVID-19 2020-07-02 Completed [facility] VACCINATION 00:00:00 [facility] PFIZER COVID-19 2020-07-02 Completed [facility] VACCINATION 00:00:00 [facility] PFIZER COVID-19 2020-07-02 Completed [facility] VACCINATION 00:00:00 [facility] PFIZER COVID-19 2020-07-02 Completed [facility] VACCINATION 00:00:00 [facility] PFIZER COVID-19 2020-07-02 Completed [facility] VACCINATION 00:00:00 [facility] PFIZER COVID-19 2020-07-02 Completed [facility] VACCINATION 00:00:00 [facility] PFIZER COVID-19 2020-07-02 Completed [facility] VACCINATION 00:00:00 [facility] PFIZER COVID-19 2020-07-02 Completed [facility] VACCINATION 00:00:00 [facility] PFIZER COVID-19 2020-07-02 Completed [facility] VACCINATION 00:00:00 [facility] PFIZER COVID-19 2020-07-02 Completed [facility] VACCINATION 00:00:00 [facility] PFIZER COVID-19 2020-07-02 Completed [facility] VACCINATION 00:00:00 [facility] PFIZER COVID-19 2020-07-02 Completed [facility] VACCINATION 00:00:00 [facility] PFIZER COVID-19 2020-07-02 Completed [facility] VACCINATION 00:00:00 [facility] PFIZER COVID-19 2020-07-02 Completed [facility] VACCINATION 00:00:00 [facility] PFIZER COVID-19 2020-07-02 Completed [facility] VACCINATION 00:00:00 [facility] PFIZER COVID-19 2020-07-02 Completed [facility] VACC[facility] 00:00:00 [facility] PFIZER COVID-19 2020-07-02 Completed [facility] VACC[facility] 00:00:00 [facility] PFIZER COVID-19 2020-07-02 Completed [facility] VACC[facility] 00:00:00 [facility] PFIZER COVID-19 2020-07-02 Completed [facility] VACCINATION 00:00:00 [facility] PFIZER COVID-19 2020-07-02 Completed [facility] VACCINATION 00:00:00 [facility] PFIZER COVID-19 2020-07-02 Completed [facility] VACCINATION 00:00:00 [facility] PFIZER COVID-19 2020-07-02 Completed [facility] VACCINATION 00:00:00 [facility] Influenza Virus 2017-03-08 Completed [facility] Vaccine 00:00:00 [facility] Influenza Virus 2017-03-08 Completed [facility] Vaccine 00:00:00 [facility] Influenza Virus 2017-03-08 Completed [facility] Vaccine 00:00:00 [facility] Influenza Virus 2017-03-08 Completed [facility] of Vaccine 00:00:00 [facility] Influenza Virus 2017-03-08 Completed [facility] Vaccine 00:00:00 [facility] Influenza Virus 2017-03-08 Completed [facility] Vaccine 00:00:00 [facility] Influenza Virus 2017-03-08 Completed [facility] Vaccine 00:00:00 [facility] Influenza Virus 2017-03-08 Completed [facility] Vaccine 00:00:00 [facility] Influenza Virus 2017-03-08 Completed [facility] of Vaccine 00:00:00 [facility] Influenza Virus 2017-03-08 Completed [facility] Vaccine 00:00:00 [facility] Influenza Virus 2017-03-08 Completed [facility] of Vaccine 00:00:00 [facility] Influenza Virus 2017-03-08 Completed [facility] of Vaccine 00:00:00 [facility] Influenza Virus 2017-03-08 Completed [facility] of Vaccine 00:00:00 [facility] Influenza Virus 2017-03-08 Completed [facility] of Vaccine 00:00:00 [facility] Influenza Virus 2017-03-08 Completed [facility] of Vaccine 00:00:00 [facility] Influenza Virus 2017-03-08 Completed [facility] Vaccine 00:00:00 [facility] Influenza Virus 2017-03-08 Completed [facility] of Vaccine 00:00:00 [facility] Influenza Virus 2017-03-08 Completed [facility] Vaccine 00:00:00 [facility] Influenza Virus 2017-03-08 Completed [facility] Vaccine 00:00:00 [facility] Influenza Virus 2017-03-08 Completed [facility] of Vaccine 00:00:00 [facility] Influenza Virus 2017-03-08 Completed [facility] of Vaccine 00:00:00 [facility] Influenza Virus 2017-03-08 Completed [facility] Vaccine 00:00:00 [facility] Influenza Virus 2017-03-08 Completed [facility] Vaccine 00:00:00 [facility] Influenza Virus 2017-03-08 Completed [facility] Vaccine 00:00:00 [facility] Influenza Virus 2014-01-30 Completed [facility] of Vaccine (3+ yrs) 00:00:00 [facility] Pneumococcal 13 2014-01-30 Completed [facility] y of Conjugate, PCV13 00:00:00 [facility] dical (Prevnar 13) Branch Influenza Virus 2014-01-30 Completed [facility] of Vaccine (3+ yrs) 00:00:00 [facility] Pneumococcal 13 2014-01-30 Completed [facility] of Conjugate, PCV13 00:00:00 [facility] dical (Prevnar 13) Branch Influenza Virus 2014-01-30 Completed [facility] of Vaccine (3+ yrs) 00:00:00 [facility] Pneumococcal 13 2014-01-30 Completed [facility] of Conjugate, PCV13 00:00:00 [facility] dical (Prevnar 13) Branch Influenza Virus 2014-01-30 Completed [facility] of Vaccine (3+ yrs) 00:00:00 [facility] Pneumococcal 13 2014-01-30 Completed [facility] of Conjugate, PCV13 00:00:00 [facility] dical (Prevnar 13) Branch Influenza Virus 2014-01-30 Completed [facility] of Vaccine (3+ yrs) 00:00:00 [facility] Pneumococcal 13 2014-01-30 Completed [facility] of Conjugate, PCV13 00:00:00 [facility] dical (Prevnar 13) Branch Influenza Virus 2014-01-30 Completed [facility] of Vaccine (3+ yrs) 00:00:00 [facility] Pneumococcal 13 2014-01-30 Completed [facility] Conjugate, PCV13 00:00:00 [facility] (Prevnar 13) [facility] Influenza Virus 2014-01-30 Completed [facility] Vaccine (3+ yrs) 00:00:00 [facility] Pneumococcal 13 2014-01-30 Completed [facility] Conjugate, PCV13 00:00:00 [facility] (Prevnar 13) [facility] Influenza Virus 2014-01-30 Completed [facility] Vaccine (3+ yrs) 00:00:00 [facility] Pneumococcal 13 2014-01-30 Completed [facility] of Conjugate, PCV13 00:00:00 [facility] (Prevnar 13) [facility] Influenza Virus 2014-01-30 Completed [facility] Vaccine (3+ yrs) 00:00:00 [facility] Pneumococcal 13 2014-01-30 Completed [facility] of Conjugate, PCV13 00:00:00 [facility] dical (Prevnar 13) Branch Influenza Virus 2014-01-30 Completed [facility] of Vaccine (3+ yrs) 00:00:00 [facility] Pneumococcal 13 2014-01-30 Completed [facility] of Conjugate, PCV13 00:00:00 [facility] (Prevnar 13) [facility] Influenza Virus 2014-01-30 [...] [facility] of Conjugate, PCV13 00:00:00 [facility] (Prevnar 13) [facility] Influenza Virus 2014-01-30 Completed [facility] Vaccine (3+ yrs) 00:00:00 [facility] Pneumococcal 13 2014-01-30 Completed [facility] of Conjugate, PCV13 00:00:00 [facility] (Prevnar 13) [facility] Influenza Virus 2014-01-30 [...] y of Vaccine (3+ yrs) 00:00:00 [facility] Pneumococcal 13 2014-01-30 Completed [facility] of Conjugate, PCV13 00:00:00 [facility] (Prevnar 13) [facility] Influenza Virus 2014-01-30 Completed [facility] of Vaccine (3+ yrs) 00:00:00 [facility] Pneumococcal 13 2014-01-30 Completed [facility] of Conjugate, PCV13 00:00:00 [facility] (Prevnar 13) [facility] Influenza Virus 2014-01-30 Completed [facility] Vaccine (3+ yrs) 00:00:00 [facility] Pneumococcal 13 2014-01-30 Completed [facility] Conjugate, PCV13 00:00:00 [facility] (Prevnar 13) [facility] Influenza Virus 2014-01-30 Completed [facility] of Vaccine (3+ yrs) 00:00:00 [facility] Pneumococcal 13 2014-01-30 Completed [facility] of Conjugate, PCV13 00:00:00 [facility] (Prevnar 13) [facility] Influenza Virus 2014-01-30 Completed [facility] of Vaccine (3+ yrs) 00:00:00 [facility] Pneumococcal 13 2014-01-30 Completed [facility] of Conjugate, PCV13 00:00:00 [facility] (Prevnar 13) [facility] Influenza Virus 2014-01-30 Completed [facility] Vaccine (3+ yrs) 00:00:00 [facility] Pneumococcal 13 2014-01-30 Completed [facility] of Conjugate, PCV13 00:00:00 [facility] (Prevnar 13) [facility] Influenza Virus 2014-01-30 Completed [facility] Vaccine (3+ yrs) 00:00:00 [facility] Pneumococcal 13 2014-01-30 Completed [facility]it [...] 2012-02-16 Completed [facility] of Vaccine 00:00:00 [facility] PPD (TB) 2012-02-16 Completed [facility] of 00:00:00 [facility] Pneumococcal 2012-02-16 Completed University o f Polysaccharide, 00:00:00 [facility] PPSV23 (PNEUMOVAX) Branch Influenza Virus 2012-02-16 Completed [facility] of Vaccine 00:00:00 [facility] PPD (TB) 2012-02-16 Completed [facility] of 00:00:00 [facility] Pneumococcal 2012-02-16 Completed [facility] o f Polysaccharide, 00:00:00 [facility] PPSV23 (PNEUMOVAX) [facility] Influenza Virus 2012-02-16 Completed [facility] of Vaccine 00:00:00 [facility] PPD (TB) 2012-02-16 Completed [facility] of 00:00:00 [facility] Pneumococcal 2012-02-16 Completed [facility] o f Polysaccharide, 00:00:00 [facility] PPSV23 (PNEUMOVAX) [facility] Influenza Virus 2012-02-16 Completed [facility] of Vaccine 00:00:00 [facility] PPD (TB) 2012-02-16 Completed [facility] of 00:00:00 [facility] Pneumococcal 2012-02-16 Completed [facility] o f Polysaccharide, 00:00:00 [facility] PPSV23 (PNEUMOVAX) [facility] Influenza Virus 2012-02-16 Completed [facility] of Vaccine 00:00:00 [facility] PPD (TB) 2012-02-16 Completed [facility] of 00:00:00 [facility] Pneumococcal 2012-02-16 Completed [facility] o f Polysaccharide, 00:00:00 [facility] PPSV23 (PNEUMOVAX) [facility] Influenza Virus 2012-02-16 Completed [facility] of Vaccine 00:00:00 [facility] PPD (TB) 2012-02-16 Completed [facility] of 00:00:00 [facility] Pneumococcal 2012-02-16 Completed [facility] o f Polysaccharide, 00:00:00 [facility] PPSV23 (PNEUMOVAX) [facility] Influenza Virus 2012-02-16 Completed [facility] of Vaccine 00:00:00 [facility] PPD (TB) 2012-02-16 Completed [facility] of 00:00:00 [facility] Pneumococcal 2012-02-16 Completed [facility] o f Polysaccharide, 00:00:00 [facility] PPSV23 (PNEUMOVAX) [facility] Influenza Virus 2012-02-16 Completed [facility] of Vaccine 00:00:00 [facility] PPD (TB) 2012-02-16 Completed [facility] of 00:00:00 [facility] Pneumococcal 2012-02-16 Completed [facility] o f Polysaccharide, 00:00:00 [facility] PPSV23 (PNEUMOVAX) [facility] Influenza Virus 2012-02-16 Completed [facility] of Vaccine 00:00:00 [facility] PPD (TB) 2012-02-16 Completed [facility] of 00:00:00 [facility] Pneumococcal 2012-02-16 Completed [facility] o f Polysaccharide, 00:00:00 [facility] PPSV23 (PNEUMOVAX) [facility] Influenza Virus 2012-02-16 Completed [facility] Vaccine 00:00:00 [facility] PPD (TB) 2012-02-16 Completed [facility] of 00:00:00 [facility] Pneumococcal 2012-02-16 Completed [facility] o f Polysaccharide, 00:00:00 [facility] PPSV23 (PNEUMOVAX) [facility] Influenza Virus 2012-02-16 Completed [facility] of Vaccine 00:00:00 [facility] PPD (TB) 2012-02-16 Completed [facility] of 00:00:00 [facility] Pneumococcal 2012-02-16 Completed [facility] o f Polysaccharide, 00:00:00 [facility] PPSV23 (PNEUMOVAX) [facility] Influenza Virus 2012-02-16 Completed [facility] of Vaccine 00:00:00 [facility] PPD (TB) 2012-02-16 Completed [facility] of 00:00:00 [facility] Pneumococcal 2012-02-16 Completed [facility] o f Polysaccharide, 00:00:00 [facility] PPSV23 (PNEUMOVAX) [facility] Influenza Virus 2012-02-16 Completed [facility] of Vaccine 00:00:00 [facility] PPD (TB) 2012-02-16 Completed [facility] of 00:00:00 [facility] Pneumococcal 2012-02-16 Completed [facility] o f Polysaccharide, 00:00:00 [place] [facility] PPSV23 (PNEUMOVAX) [facility] Influenza Virus 2012-02-16 Completed [facility] of Vaccine 00:00:00 [facility] PPD (TB) 2012-02-16 Completed [facility] of 00:00:00 [facility] Pneumococcal 2012-02-16 Completed [facility] o f Polysaccharide, 00:00:00 [facility] PPSV23 (PNEUMOVAX) [facility] Influenza Virus 2012-02-16 Completed [facility] of Vaccine 00:00:00 [facility] PPD (TB) 2012-02-16 Completed [facility] of 00:00:00 [facility] Pneumococcal 2012-02-16 Completed [facility] o f Polysaccharide, 00:00:00 [facility] PPSV23 (PNEUMOVAX) [facility] Influenza Virus 2012-02-16 Completed [facility] of Vaccine 00:00:00 [facility] PPD (TB) 2012-02-16 Completed [facility] of 00:00:00 [facility] Pneumococcal 2012-02-16 Completed [facility] o f Polysaccharide, 00:00:00 [facility] PPSV23 (PNEUMOVAX) Branch Influenza Virus 2012-02-16 Completed [facility] of Vaccine 00:00:00 [facility] PPD (TB) 2012-02-16 Completed [facility] of 00:00:00 [facility] Pneumococcal 2012-02-16 Completed [facility] o f Polysaccharide, 00:00:00 [facility] PPSV23 (PNEUMOVAX) Branch Influenza Virus 2012-02-16 Completed [facility] of Vaccine 00:00:00 [facility] PPD (TB) 2012-02-16 Completed [facility] of 00:00:00 [facility] Pneumococcal 2012-02-16 Completed [facility] o f Polysaccharide, 00:00:00 [facility] PPSV23 (PNEUMOVAX) [facility] Influenza Virus 2012-02-16 Completed [facility] of Vaccine 00:00:00 [facility] PPD (TB) 2012-02-16 Completed [facility] of 00:00:00 [facility] Pneumococcal 2012-02-16 Completed [facility] o f Polysaccharide, 00:00:00 [facility] PPSV23 (PNEUMOVAX) Branch Influenza Virus 2012-02-16 Completed [facility] of Vaccine 00:00:00 [facility] PPD (TB) 2012-02-16 Completed [facility] of 00:00:00 [facility] Pneumococcal 2012-02-16 Completed [facility] o f Polysaccharide, 00:00:00 [facility] PPSV23 (PNEUMOVAX) Branch Influenza Virus 2012-02-16 Completed [facility] of Vaccine 00:00:00 [facility] PPD (TB) 2012-02-16 Completed [facility] of 00:00:00 [facility] Pneumococcal 2012-02-16 Completed [facility] o f Polysaccharide, 00:00:00 [facility] PPSV23 (PNEUMOVAX) Branch Influenza Virus 2012-02-16 Completed [facility] of Vaccine 00:00:00 [facility] PPD (TB) 2012-02-16 Completed [facility] of 00:00:00 [facility] Pneumococcal 2012-02-16 Completed [facility] o f Polysaccharide, 00:00:00 [facility] PPSV23 (PNEUMOVAX) Branch Influenza Virus 2012-02-16 Completed [facility] of Vaccine 00:00:00 [facility] PPD (TB) 2012-02-16 Completed [facility] of 00:00:00 [facility] Pneumococcal 2012-02-16 Completed [facility] o f Polysaccharide, 00:00:00 [facility] PPSV23 (PNEUMOVAX) Branch Influenza Virus 2012-02-16 Completed [facility] of Vaccine 00:00:00 [facility] PPD (TB) 2012-02-16 Completed [facility] of 00:00:00 [facility] Hep B, Adol or Pedi 2011-09-01 Completed Unive rsity of Dosage 00:00:00 [facility] Hep B, Adol or Pedi 2011-09-01 Completed [facility]ive rs[facility] of Dosage 00:00:00 [facility] Hep B, Adol or Pedi 2011-09-01 Completed [facility]ive rs[facility] of Dosage 00:00:00 [facility] Hep B, Adol or Pedi 2011-09-01 Completed [facility]ive rs[facility] of Dosage 00:00:00 [facility] Hep B, Adol or Pedi 2011-09-01 Completed [facility]ive rsity of Dosage 00:00:00 [facility] Hep B, Adol or Pedi 2011-09-01 Completed [facility]ive rsity of Dosage 00:00:00 [facility] Hep B, Adol or Pedi 2011-09-01 Completed [facility]ive rsity of Dosage 00:00:00 [facility] Hep B, Adol or Pedi 2011-09-01 [...] 2011-03-17 Completed [facility]ive rsity of Dosage 00:00:00 [facility] Hep B, Adol or Pedi 2011-03-17 Completed [facility]ive rsity of Dosage 00:00:00 [facility] Hep B, Adol or Pedi 2011-03-17 Completed [facility]ive rsity of Dosage 00:00:00 [facility] Hep B, Adol or Pedi 2011-03-17 Completed [facility]ive rsity of Dosage 00:00:00 [facility] Hep B, Adol or Pedi 2011-03-17 Completed Unive rsity of Dosage 00:00:00 [facility] Influenza Virus 2011-02-10 Completed [facility] of Vaccine 00:00:00 [facility] Hep B, Adol or Pedi 2011-02-10 Completed [facility] of Dosage 00:00:00 [facility] Influenza Virus 2011-02-10 Completed [facility] Vaccine 00:00:00 [facility] Hep B, Adol or Pedi 2011-02-10 Completed [facility] rs[facility] of Dosage 00:00:00 [facility] Influenza Virus 2011-02-10 Completed [facility] Vaccine 00:00:00 [facility] Hep B, Adol or Pedi 2011-02-10 Completed [facility] rs[facility] of Dosage 00:00:00 [facility] Influenza Virus 2011-02-10 Completed [facility] Vaccine 00:00:00 [facility] Hep B, Adol or Pedi 2011-02-10 Completed [facility] rs[facility] of Dosage 00:00:00 [facility] Influenza Virus 2011-02-10 Completed [facility] Vaccine 00:00:00 [facility] Hep B, Adol or Pedi 2011-02-10 Completed [facility] rs[facility] of Dosage 00:00:00 [facility] Influenza Virus 2011-02-10 Completed [facility] Vaccine 00:00:00 [facility] Hep B, Adol or Pedi 2011-02-10 Completed [facility] rs[facility] of Dosage 00:00:00 [facility] Influenza Virus 2011-02-10 Completed [facility] Vaccine 00:00:00 [facility] Hep B, Adol or Pedi 2011-02-10 Completed [facility] rs[facility] of Dosage 00:00:00 [facility] Influenza Virus 2011-02-10 Completed [facility] Vaccine 00:00:00 [facility] Hep B, Adol or Pedi 2011-02-10 Completed [facility] of Dosage 00:00:00 [facility] Influenza Virus 2011-02-10 Completed [facility] Vaccine 00:00:00 [facility] Hep B, Adol or Pedi 2011-02-10 Completed [facility] rs[facility] of Dosage 00:00:00 [facility] Influenza Virus 2011-02-10 Completed [facility] Vaccine 00:00:00 [facility] Hep B, Adol or Pedi 2011-02-10 Completed [facility] rs[facility] of Dosage 00:00:00 [facility] Influenza Virus 2011-02-10 Completed [facility] of Vaccine 00:00:00 [facility] Hep B, Adol or Pedi 2011-02-10 Completed [facility] rs[facility] of Dosage 00:00:00 [facility] Influenza Virus 2011-02-10 Completed [facility] of Vaccine 00:00:00 [facility] Hep B, Adol or Pedi 2011-02-10 Completed [facility] rs[facility] of Dosage 00:00:00 [facility] Influenza Virus 2011-02-10 Completed [facility] Vaccine 00:00:00 [facility] Hep B, Adol or Pedi 2011-02-10 Completed [facility] rs[facility] of Dosage 00:00:00 [facility] Influenza Virus 2011-02-10 Completed [facility] of Vaccine 00:00:00 [facility] Hep B, Adol or Pedi 2011-02-10 Completed [facility] rs[facility] of Dosage 00:00:00 [facility] Influenza Virus 2011-02-10 Completed [facility] Vaccine 00:00:00 [facility] Hep B, Adol or Pedi 2011-02-10 Completed [facility] rs[facility] of Dosage 00:00:00 [facility] Influenza Virus 2011-02-10 Completed [facility] of Vaccine 00:00:00 [facility] Hep B, Adol or Pedi 2011-02-10 Completed [facility] rs[facility] of Dosage 00:00:00 [facility] Influenza Virus 2011-02-10 Completed [facility] Vaccine 00:00:00 [facility] Hep B, Adol or Pedi 2011-02-10 Completed [facility] rs[facility] of Dosage 00:00:00 [facility] Influenza Virus 2011-02-10 Completed [facility] of Vaccine 00:00:00 [facility] Hep B, Adol or Pedi 2011-02-10 Completed [facility] of Dosage 00:00:00 [facility] Influenza Virus 2011-02-10 Completed [facility] of Vaccine 00:00:00 [facility] Hep B, Adol or Pedi 2011-02-10 Completed [facility] rs[facility] of Dosage 00:00:00 [facility] Influenza Virus 2011-02-10 Completed [facility] of Vaccine 00:00:00 [facility] Hep B, Adol or Pedi 2011-02-10 Completed [facility] of Dosage 00:00:00 [facility] Influenza Virus 2011-02-10 Completed [facility] of Vaccine 00:00:00 [facility] Hep B, Adol or Pedi 2011-02-10 Completed [facility] of Dosage 00:00:00 [facility] Influenza Virus 2011-02-10 Completed [facility] Vaccine 00:00:00 [facility] Hep B, Adol or Pedi 2011-02-10 Completed [facility] of Dosage 00:00:00 [facility] Influenza Virus 2011-02-10 Completed [facility] of Vaccine 00:00:00 [facility] Hep B, Adol or Pedi 2011-02-10 Completed [facility] of Dosage 00:00:00 [facility] Influenza Virus 2011-02-10 Completed [facility] Vaccine 00:00:00 [facility] Hep B, Adol or Pedi 2011-02-10 Completed [facility] of Dosage 00:00:00 [facility] PPD (TB) 2010-11-18 Completed University of 00:00:00 [facility] TDAP (ADACEL) 2010-11-18 Completed University of VACCINE 00:00:00 [facility] PPD (TB) 2010-11-18 Completed University of 00:00:00 [facility] TDAP (ADACEL) 2010-11-18 Completed University of VACCINE 00:00:00 [facility] PPD (TB) 2010-11-18 Completed University of 00:00:00 [facility] TDAP (ADACEL) 2010-11-18 Completed University of VACCINE 00:00:00 [facility] PPD (TB) 2010-11-18 Completed University of 00:00:00 [facility] TDAP (ADACEL) 2010-11-18 Completed University of VACCINE 00:00:00 [facility] PPD (TB) 2010-11-18 Completed University of 00:00:00 [facility] TDAP (ADACEL) 2010-11-18 Completed [facility] of VACCINE 00:00:00 [facility] PPD (TB) 2010-11-18 Completed [facility] of 00:00:00 [facility] TDAP (ADACEL) 2010-11-18 Completed University of VACCINE 00:00:00 [facility] PPD (TB) 2010-11-18 Completed University of 00:00:00 [facility] TDAP (ADACEL) 2010-11-18 Completed University of VACCINE 00:00:00 [facility] PPD (TB) 2010-11-18 Completed University of 00:00:00 [facility] TDAP (ADACEL) 2010-11-18 Completed University of VACCINE 00:00:00 [facility] PPD (TB) 2010-11-18 Completed University of 00:00:00 [facility] TDAP (ADACEL) 2010-11-18 Completed University of VACCINE 00:00:00 [facility] PPD (TB) 2010-11-18 Completed University of 00:00:00 [facility] TDAP (ADACEL) 2010-11-18 Completed University of VACCINE 00:00:00 [facility] PPD (TB) 2010-11-18 Completed University of 00:00:00 [facility] TDAP (ADACEL) 2010-11-18 Completed University of VACCINE 00:00:00 [facility] PPD (TB) 2010-11-18 Completed University of 00:00:00 [facility] TDAP (ADACEL) 2010-11-18 Completed University of VACCINE 00:00:00 [facility] PPD (TB) 2010-11-18 Completed University of 00:00:00 [facility] TDAP (ADACEL) 2010-11-18 Completed University of VACCINE 00:00:00 [facility] PPD (TB) 2010-11-18 Completed University of 00:00:00 [facility] TDAP (ADACEL) 2010-11-18 Completed [facility] of VACCINE 00:00:00 [facility] PPD (TB) 2010-11-18 Completed University of 00:00:00 [facility] TDAP (ADACEL) 2010-11-18 Completed University of VACCINE 00:00:00 [facility] PPD (TB) 2010-11-18 Completed University of 00:00:00 [facility] TDAP (ADACEL) 2010-11-18 Completed University of VACCINE 00:00:00 [facility] PPD (TB) 2010-11-18 Completed University of 00:00:00 [facility] TDAP (ADACEL) 2010-11-18 Completed University of VACCINE 00:00:00 [facility] PPD (TB) 2010-11-18 Completed University of 00:00:00 [facility] TDAP (ADACEL) 2010-11-18 Completed University of VACCINE 00:00:00 [facility] PPD (TB) 2010-11-18 Completed University of 00:00:00 [facility] TDAP (ADACEL) 2010-11-18 Completed University of VACCINE 00:00:00 [facility] PPD (TB) 2010-11-18 Completed University of 00:00:00 [facility] TDAP (ADACEL) 2010-11-18 Completed University of VACCINE 00:00:00 [facility] PPD (TB) 2010-11-18 Completed University of 00:00:00 [facility] TDAP (ADACEL) 2010-11-18 Completed University of VACCINE 00:00:00 [facility] PPD (TB) 2010-11-18 Completed University of 00:00:00 [facility] TDAP (ADACEL) 2010-11-18 Completed University of VACCINE 00:00:00 [facility] PPD (TB) 2010-11-18 Completed University of 00:00:00 [facility] TDAP (ADACEL) 2010-11-18 Completed University of VACCINE 00:00:00 [facility] PPD (TB) 2010-11-18 Completed University of 00:00:00 [facility] TDAP (ADACEL) 2010-11-18 Completed University of VACCINE 00:00:00 [facility] HEPATITIS A 2004-03-02 Completed University of 00:00:00 [facility] HEPATITIS A 2004-03-02 Completed University of 00:00:00 [facility] HEPATITIS A 2004-03-02 Completed University of 00:00:00 [facility] HEPATITIS A 2004-03-02 Completed University of 00:00:00 [facility] HEPATITIS A 2004-03-02 Completed University of 00:00:00 [facility] HEPATITIS A 2004-03-02 Completed University of 00:00:00 [facility] HEPATITIS A 2004-03-02 Completed University of 00:00:00 [facility] HEPATITIS A 2004-03-02 Completed University of 00:00:00 [facility] HEPATITIS A 2004-03-02 Completed University of 00:00:00 [facility] HEPATITIS A 2004-03-02 Completed University of 00:00:00 [facility] HEPATITIS A 2004-03-02 Completed University of 00:00:00 [facility] HEPATITIS A 2004-03-02 Completed [facility] of 00:00:00 [facility] HEPATITIS A 2004-03-02 Completed University of 00:00:00 [facility] HEPATITIS A 2004-03-02 Completed University of 00:00:00 [facility] HEPATITIS A 2004-03-02 Completed University of 00:00:00 [facility] HEPATITIS A 2004-03-02 Completed [facility] of 00:00:00 [facility] HEPATITIS A 2004-03-02 Completed University of 00:00:00 [facility] HEPATITIS A 2004-03-02 Completed University of 00:00:00 [facility] HEPATITIS A 2004-03-02 Completed [facility] of 00:00:00 [facility] HEPATITIS A 2004-03-02 Completed University of 00:00:00 [facility] HEPATITIS A 2004-03-02 Completed University of 00:00:00 [facility] HEPATITIS A 2004-03-02 Completed University of 00:00:00 [facility] HEPATITIS A 2004-03-02 Completed University of 00:00:00 [facility] HEPATITIS A 2004-03-02 Completed University of 00:00:00 [facility] HEPATITIS A 2003-08-01 Completed University of 00:00:00 [facility] HEPATITIS A 2003-08-01 Completed [facility] of 00:00:00 [facility] HEPATITIS A 2003-08-01 Completed University of 00:00:00 [facility] HEPATITIS A 2003-08-01 Completed University of 00:00:00 [facility] HEPATITIS A 2003-08-01 Completed [facility] of 00:00:00 [facility] HEPATITIS A 2003-08-01 Completed University of 00:00:00 [facility] HEPATITIS A 2003-08-01 Completed University of 00:00:00 [facility] HEPATITIS A 2003-08-01 Completed [facility] of 00:00:00 [facility] HEPATITIS A 2003-08-01 Completed [facility] of 00:00:00 [facility] HEPATITIS A 2003-08-01 Completed [facility] of 00:00:00 [facility] HEPATITIS A 2003-08-01 Completed [facility] of 00:00:00 [facility] HEPATITIS A 2003-08-01 Completed University of 00:00:00 [facility] HEPATITIS A 2003-08-01 Completed University of 00:00:00 [facility] HEPATITIS A 2003-08-01 Completed University of 00:00:00 [facility] HEPATITIS A 2003-08-01 Completed University of 00:00:00 [facility] HEPATITIS A 2003-08-01 Completed University of 00:00:00 [facility] HEPATITIS A 2003-08-01 Completed University of 00:00:00 [facility] HEPATITIS A 2003-08-01 Completed [facility] of 00:00:00 [facility] HEPATITIS A 2003-08-01 Completed [facility] of 00:00:00 [facility] HEPATITIS A 2003-08-01 Completed University of 00:00:00 [facility] HEPATITIS A 2003-08-01 Completed [facility] of 00:00:00 [facility] HEPATITIS A 2003-08-01 Completed University of 00:00:00 [facility] HEPATITIS A 2003-08-01 Completed University of 00:00:00 [facility] HEPATITIS A 2003-08-01 Completed University of 00:00:00 [facility] Pneumococcal 2001-10-04 Completed University o f Polysaccharide, 00:00:00 [facility] PPSV23 (PNEUMOVAX) [facility] PPD (TB) 2001-10-04 Completed University of 00:00:00 [facility] Pneumococcal 2001-10-04 Completed University o f Polysaccharide, 00:00:00 [facility] PPSV23 (PNEUMOVAX) [facility] PPD (TB) 2001-10-04 Completed University of 00:00:00 [facility] Pneumococcal 2001-10-04 Completed University o f Polysaccharide, 00:00:00 [facility] PPSV23 (PNEUMOVAX) [facility] PPD (TB) 2001-10-04 Completed University of 00:00:00 [facility] Pneumococcal 2001-10-04 Completed [facility] o f Polysaccharide, 00:00:00 [facility] PPSV23 (PNEUMOVAX) [facility] PPD (TB) 2001-10-04 Completed [facility] of 00:00:00 [facility] Pneumococcal 2001-10-04 Completed [facility] o f Polysaccharide, 00:00:00 [place] [facility] PPSV23 (PNEUMOVAX) [facility] PPD (TB) 2001-10-04 Completed University of 00:00:00 [facility] Pneumococcal 2001-10-04 Completed [facility] o f Polysaccharide, 00:00:00 [facility] PPSV23 (PNEUMOVAX) Branch PPD (TB) 2001-10-04 Completed University of 00:00:00 [facility] Pneumococcal 2001-10-04 Completed [facility] o f Polysaccharide, 00:00:00 [facility] PPSV23 (PNEUMOVAX) Branch PPD (TB) 2001-10-04 Completed [facility] of 00:00:00 [facility] Pneumococcal 2001-10-04 Completed [facility] o f Polysaccharide, 00:00:00 [place] [facility] PPSV23 (PNEUMOVAX) Branch PPD (TB) 2001-10-04 Completed University of 00:00:00 [facility] Pneumococcal 2001-10-04 Completed [facility] o f Polysaccharide, 00:00:00 [place] [facility] PPSV23 (PNEUMOVAX) Branch PPD (TB) 2001-10-04 Completed [facility] of 00:00:00 [facility] Pneumococcal 2001-10-04 Completed [facility] o f Polysaccharide, 00:00:00 [facility] PPSV23 (PNEUMOVAX) Branch PPD (TB) 2001-10-04 Completed [facility] of 00:00:00 [facility] Pneumococcal 2001-10-04 Completed [facility] o f Polysaccharide, 00:00:00 [facility] PPSV23 (PNEUMOVAX) Branch PPD (TB) 2001-10-04 Completed [facility] of 00:00:00 [facility] Pneumococcal 2001-10-04 Completed [facility] o f Polysaccharide, 00:00:00 [facility] PPSV23 (PNEUMOVAX) Branch PPD (TB) 2001-10-04 Completed [facility] of 00:00:00 [facility] Pneumococcal 2001-10-04 Completed [facility] o f Polysaccharide, 00:00:00 [facility] PPSV23 (PNEUMOVAX) Branch PPD (TB) 2001-10-04 Completed [facility] of 00:00:00 [facility] Pneumococcal 2001-10-04 Completed [facility] o f Polysaccharide, 00:00:00 [facility] PPSV23 (PNEUMOVAX) Branch PPD (TB) 2001-10-04 Completed [facility] of 00:00:00 [facility] Pneumococcal 2001-10-04 Completed [facility] o f Polysaccharide, 00:00:00 [place] [facility] PPSV23 (PNEUMOVAX) Branch PPD (TB) 2001-10-04 Completed [facility] of 00:00:00 [facility] Pneumococcal 2001-10-04 Completed [facility] o f Polysaccharide, 00:00:00 [place] [facility] PPSV23 (PNEUMOVAX) Branch PPD (TB) 2001-10-04 Completed [facility] of 00:00:00 [facility] Pneumococcal 2001-10-04 Completed [facility] o f Polysaccharide, 00:00:00 [place] [facility] PPSV23 (PNEUMOVAX) Branch PPD (TB) 2001-10-04 Completed [facility] of 00:00:00 [facility] Pneumococcal 2001-10-04 Completed [facility] o f Polysaccharide, 00:00:00 [place] [facility] PPSV23 (PNEUMOVAX) Branch PPD (TB) 2001-10-04 Completed [facility] of 00:00:00 [facility] Pneumococcal 2001-10-04 Completed [facility] o f Polysaccharide, 00:00:00 [place] [facility] PPSV23 (PNEUMOVAX) Branch PPD (TB) 2001-10-04 Completed [facility] of 00:00:00 [facility] Pneumococcal 2001-10-04 Completed [facility] o f Polysaccharide, 00:00:00 [facility] PPSV23 (PNEUMOVAX) Branch PPD (TB) 2001-10-04 Completed [facility] of 00:00:00 [facility] Pneumococcal 2001-10-04 Completed [facility] o f Polysaccharide, 00:00:00 [facility] PPSV23 (PNEUMOVAX) Branch PPD (TB) 2001-10-04 Completed [facility] of 00:00:00 [facility] Pneumococcal 2001-10-04 Completed [facility] o f Polysaccharide, 00:00:00 [facility] PPSV23 (PNEUMOVAX) Branch PPD (TB) 2001-10-04 Completed [facility] of 00:00:00 [facility] Pneumococcal 2001-10-04 Completed [facility] o f Polysaccharide, 00:00:00 [facility] PPSV23 (PNEUMOVAX) Branch PPD (TB) 2001-10-04 Completed [facility] of 00:00:00 [facility] Pneumococcal 2001-10-04 Completed [facility] o f Polysaccharide, 00:00:00 [facility] PPSV23 (PNEUMOVAX) Branch PPD (TB) 2001-10-04 Completed [facility] of 00:00:00 [facility] PFIZER COVID-19 Unknown Completed [facility] PFIZER COVID-19 Unknown Completed [facility] Vital Signs Vital Name Observation Time Observation Value Comments Source Systolic blood 2023-01-27 23:00:00 179 mm[Hg] Univer [facility] of pressure [facility] Diastolic blood 2023-01-27 23:00:00 101 mm[Hg] Unive rsity of pressure [facility] Heart rate 2023-01-27 23:00:00 58 /min [facility] Respiratory rate 2023-01-27 23:00:00 12 /min [facility] Oxygen saturation in 2023-01-27 23:00:00 99 /min [facility] of Arterial blood by [facility] Pulse oximetry Branch Body temperature 2023-01-27 15:46:00 37.28 Amina [facility] Body weight 2023-01-27 15:46:00 79.379 kg [facility] BMI 2023-01-27 15:46:00 30.04 kg/m2 [facility] Systolic blood 2022-05-10 22:00:00 159 mm[Hg] [facility] of pressure [facility] Diastolic blood 2022-05-10 22:00:00 87 mm[Hg] [facility]ive rsity of pressure [facility] Heart rate 2022-05-10 22:00:00 56 /min [facility] Body temperature 2022-05-10 22:00:00 36.61 Amina [facility] Respiratory rate 2022-05-10 22:00:00 17 /min [facility] Oxygen saturation in 2022-05-10 22:00:00 98 /min [facility] of Arterial blood by [facility] Pulse oximetry Branch Body weight 2022-05-10 16:29:00 78.926 kg [facility] BMI 2022-05-10 16:29:00 29.87 kg/m2 [facility] Systolic blood 2022-05-08 22:30:00 168 mm[Hg] [facility] of pressure [facility] Diastolic blood 2022-05-08 22:30:00 85 mm[Hg] [facility] of pressure [facility] Heart rate 2022-05-08 22:30:00 68 /min [facility] Oxygen saturation in 2022-05-08 22:30:00 100 /min [facility] of Arterial blood by [facility] porfirio Pulse oximetry Branch Body temperature 2022-05-08 22:22:00 35.89 Amina [facility] Respiratory rate 2022-05-08 22:22:00 14 /min [facility] Body weight 2022-05-08 22:22:00 78.926 kg [facility] BMI 2022-05-08 22:22:00 29.87 kg/m2 [facility] Systolic blood 2022-05-07 00:00:00 149 mm[Hg] [facility] pressure [facility] Diastolic blood 2022-05-07 00:00:00 132 mm[Hg] [facility] of pressure [facility] Heart rate 2022-05-07 00:00:00 59 /min [facility] Respiratory rate 2022-05-07 00:00:00 14 /min [facility] Oxygen saturation in 2022-05-07 00:00:00 99 /min [facility] of Arterial blood by [employer] porfirio Pulse oximetry Branch Body temperature 2022-05-06 20:12:00 36.5 Amina [facility] Body height 2022-05-06 20:12:00 162.6 cm [facility] Body weight 2022-05-06 20:12:00 78.926 kg [facility] BMI 2022-05-06 20:12:00 29.87 kg/m2 [facility] Systolic blood 2022-04-22 19:50:00 156 mm[Hg] [facility] pressure [facility] Diastolic blood 2022-04-22 19:50:00 89 mm[Hg] [facility] pressure [facility] Heart rate 2022-04-22 19:50:00 69 /min [facility] Body temperature 2022-04-22 19:50:00 36.67 Amina [facility] Respiratory rate 2022-04-22 19:50:00 17 /min [facility] Body height 2022-04-22 19:50:00 162.6 cm [facility] Body weight 2022-04-22 19:50:00 80.74 kg [facility] BMI 2022-04-22 19:50:00 30.55 kg/m2 [facility] Oxygen saturation in 2022-04-22 19:50:00 96 /min [facility] of Arterial blood by [facility] Pulse oximetry Branch Systolic blood 2022-03-05 15:23:00 167 mm[Hg] [facility] of pressure [facility] Diastolic blood 2022-03-05 15:23:00 105 mm[Hg] [facility] of pressure [facility] Heart rate 2022-03-05 15:23:00 49 /min [facility] Body temperature 2022-03-05 15:18:00 36.67 Amina [facility] Respiratory rate 2022-03-05 15:18:00 18 /min [facility] Body height 2022-03-05 15:18:00 162.6 cm [facility] Body weight 2022-03-05 15:18:00 74.707 kg [facility] BMI 2022-03-05 15:18:00 28.27 kg/m2 [facility] Systolic blood 2022-02-16 21:41:00 169 mm[Hg] [facility] pressure [facility] Diastolic blood 2022-02-16 21:41:00 86 mm[Hg] [facility] of pressure [facility] Heart rate 2022-02-16 21:41:00 51 /min [facility] Body temperature 2022-02-16 21:41:00 36.56 Amina [facility] Respiratory rate 2022-02-16 21:41:00 17 /min [facility] Oxygen saturation in 2022-02-16 21:41:00 98 /min [facility] of Arterial blood by [facility] Pulse oximetry Branch Body height 2022-02-11 16:02:00 162.6 cm [facility] Body weight 2022-02-11 16:02:00 79.379 kg [facility] BMI 2022-02-11 16:02:00 30.04 kg/m2 [facility] Systolic blood 2021-11-20 13:47:00 165 mm[Hg] [facility] of pressure [facility] Diastolic blood 2021-11-20 13:47:00 83 mm[Hg] [facility]ive rsity of pressure [facility] Heart rate 2021-11-20 13:47:00 58 /min [facility] Body temperature 2021-11-20 13:42:00 36.39 Amina [facility] Respiratory rate 2021-11-20 13:42:00 16 /min Univ [facility] of [facility] Body height 2021-11-20 13:42:00 162.6 cm [facility] Body weight 2021-11-20 13:42:00 84.369 kg [facility] BMI 2021-11-20 13:42:00 31.93 kg/m2 [facility] Systolic blood 2021-07-14 15:18:00 142 mm[Hg] [...] 22:00:00 159 mm[Hg] Univer [facility]ity of pressure [facility] Diastolic blood 2022-05-10 22:00:00 87 mm[Hg] Unive rsity of pressure [facility] Heart rate 2022-05-10 22:00:00 56 /min [facility] Body temperature 2022-05-10 22:00:00 36.61 [facility]a [facility] [facility] Respiratory rate 2022-05-10 22:00:00 17 /min [facility] Oxygen saturation in 2022-05-10 22:00:00 98 /min University of Arterial blood by [facility] Pulse oximetry Branch Body weight 2022-05-10 16:29:00 78.926 kg [facility] ty [facility] BMI 2022-05-10 16:29:00 29.87 kg/m2 [facility] Body height 2022-05-06 20:12:00 162.6 cm [facility] Systolic blood 2022-03-05 15:23:00 167 mm[Hg] Univer sity of pressure [facility] Diastolic blood 2022-03-05 15:23:00 105 mm[Hg] Unive rsity of pressure [facility] Heart rate 2022-03-05 15:23:00 49 /min Universi ty [facility] Body temperature 2022-03-05 15:18:00 36.67 Amina Univ ersity of [facility] Respiratory rate 2022-03-05 15:18:00 18 /min Univ ersity [facility] Body height 2022-03-05 15:18:00 162.6 cm Universi ty [facility] Body weight 2022-03-05 15:18:00 [facility].707 [facility] 2022-03-05 15:18:00 28.27 kg/m2 [facility] Oxygen saturation in 2022-02-16 21:41:00 98 /min University Arterial blood by [facility] Pulse oximetry [place] Systolic blood 2020-12-08 15:48:00 125 mm[Hg] [facility] pressure Diastolic blood 2020-12-08 15:48:00 76 mm[Hg] [facility] pressure Heart rate 2020-12-08 15:48:00 64 /min [facility] Body temperature 2020-12-08 15:48:00 36.61 Amina [facility] Respiratory rate 2020-12-08 15:48:00 17 /min [facility] Body height 2020-12-08 15:48:00 162.6 cm [facility] Body weight 2020-12-08 15:48:00 98.884 kg [facility] BMI 2020-12-08 15:48:00 37.42 kg/m2 [facility] Oxygen saturation in 2020-12-08 15:48:00 97 /min [facility] Arterial blood by Pulse oximetry Respitory Rate 2020-08-30 13:00:00 Memori al Marty Systolic (mm Hg) 2020-08-30 13:00:00 Caesar rial [place] Diastolic (mm Hg) 2020-08-30 13:00:00 Mem orial [place] Systolic (mm Hg) 2020-08-30 11:00:00 Caesar rial [place] Diastolic (mm Hg) 2020-08-30 11:00:00 Mem orial [place] Temperature Oral (F) 2020-08-30 11:00:00 98.4 F [facility] [place] Respitory Rate 2020-08-30 11:00:00 Memori al [place] Respitory Rate 2020-08-30 10:00:00 Memori al [place] Systolic (mm Hg) 2020-08-30 10:00:00 Caesar rial [place] Diastolic (mm Hg) 2020-08-30 10:00:00 Mem orial [place] Temperature Oral (F) 2020-08-30 00:00:00 96.9 F [facility] [place] Temperature Oral (F) 2020-08-29 11:26:00 97.6 F [facility] [place] Height 2020-08-29 10:30:00 162.56 cm [facility] Weight 2020-08-29 10:30:00 [facility] BMI Calculated 2020-08-29 10:30:00 [place] Procedures Procedure Date / Time Performing Clinician Source Performed PROTHROMBIN TIME / INR 2023-01-27 21:09[facility] 2023-01-27 21:09[facility]00 [facility] 2023-01-27 20:54:00 [facility] CONTR[facility] LIPASE 2023-01-27 18:58:00 Bill Coles [facility] MAGNESIUM 2023-01-27 18:58:00 Bill Coles [facility] TROPONIN I 2023-01-27 18:58:00 Bill Coles [facility] COMP. METABOLIC PANEL 2023-01-27 18:58:00 Bill Coles [facility] ([id number]) [facility] CBC WITH DIFF 2023-01-27 18:58:00 Bill Coles [facility] URINALYSIS 2023-01-27 18:58:00 Bill Coles [facility] COVID-19 (ID NOW RAPID 2023-01-27 16:32:00 Sanket, K Kiersten [facility] TESTING) Medical Branch URINALYSIS 2022-05-10 19:36:00 Home Matthews [facility] TROPONIN I 2022-05-10 18:34:00 Home Matthews [facility] COMP. METABOLIC PANEL 2022-05-10 18:34:00 Home Matthews [facility] ([id number]) Medical Branch CBC WITH DIFF 2022-05-10 18:34:00 Home Matthews [facility] XR CHEST 2 VW 2022-05-10 17:24:58 Home Matthews [facility] CONSENT/REFUSAL FOR 2022-05-10 16:26:23 Doctor Unassigned, [facility] DIAGNOSIS AND TREATMENT [place] [facility] CONSENT/REFUSAL FOR 2022-05-10 16:26:09 Doctor Unasimone, [facility] DIAGNOSIS AND TREATMENT [place] [facility] URINALYSIS 2022-05-08 22:43:00 Theresa Hickman [facility] XR CHEST 2 VW 2022-05-06 22:56:53 Anette Olea [facility] COMP. METABOLIC PANEL 2022-05-06 22:14:00 Anette Olea [facility] ([id number]) [facility] Branch CBC WITH DIFF 2022-05-06 22:14:00 Anette Olea [facility] COVID-19 (ID NOW RAPID 2022-05-06 22:14:00 Anette Olea [facility] TESTING) Medical Branch BASIC METABOLIC PANEL (NA, 2022-04-22 21:23:00 Paulette Gray [facility] K, CL, CO2, GLUCOSE, BUN, Medica l Branch CREATININE, CA) CBC WITH DIFF 2022-04-22 21:23:00 Paulette Gray [place] [facility] CONSENT/REFUSAL FOR 2022-04-22 19:45:46 Doctor Unasseunice, [facility] DIAGNOSIS AND TREATMENT [place] [facility] [place] SARS-COV-2 COVID-19 2022-03-05 16:09:27 Santiago Cardenas [facility] DIMITRIS-SUCROSE VACCINE 12 Medical Branch YRS+, BIVALENT 0.3ML, IM, (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) FLU 2022-03-05 16:09:27 [facility] VACC(),65+YR,0.5 Medica l Branch ML,IM,ADJUVANTED,QUAD(FLUA D) FLU 2022-03-05 16:09:27 [facility] VACC(),65+YR,0.5 Medica l Branch ML,IM,ADJUVANTED,QUAD(FLUA D) SARS-COV-2 COVID-19 2022-03-05 16:09:27 [facility] DIMITRIS-SUCROSE VACCINE 12 Medical [place] YRS+, BIVALENT 0.3ML, IM, (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) MAGNESIUM 2022-02-15 09:41:00 Sofia Garcia [facility] BASIC METABOLIC PANEL (NA, 2022-02-15 09:41:00 Sofia Garcia [facility] K, CL, CO2, GLUCOSE, BUN, Medica l Branch CREATININE, CA) CBC WITH DIFF 2022-02-15 09:41:00 Radha Sofia [facility] N-TERMINAL PRO-BNP 2022-02-15 09:41:00 Sofia Garcia [facility] CBC WITH DIFF 2022-02-15 09:41:00 Radha Sofia [facility] BASIC METABOLIC PANEL (NA, 2022-02-15 09:41:00 Sofia Garcia [facility] K, CL, CO2, GLUCOSE, BUN, Medica l Branch CREATININE, CA) MAGNESIUM 2022-02-15 09:41:00 Radha [facility] N-TERMINAL PRO-BNP 2022-02-15 09:41:00 Sofia Garcia [facility] BASIC METABOLIC PANEL (NA, 2022-02-13 09:40:00 Sofia Garcia [facility] K, CL, CO2, GLUCOSE, BUN, Medica l Branch CREATININE, CA) CBC WITH DIFF 2022-02-13 09:40:00 Sofia Garcia [facility] BASIC METABOLIC PANEL (NA, 2022-02-13 09:40:00 Sofia Garcia [facility] K, CL, CO2, GLUCOSE, BUN, Medica l Branch CREATININE, CA) CBC WITH DIFF 2022-02-13 09:40:00 Sofia Garcia [facility] TROPONIN I 2022-02-11 23:41:00 Radha [facility] N-TERMINAL PRO-BNP 2022-02-11 23:41:00 Sofia Garcia [facility] TROPONIN I 2022-02-11 23:41:00 [facility]-BNP 2022-02-11 23:41[facility]00 [facility] & RHYTHM 2022-02-11 22:15:36 Sofia Garcia [facility] TRANSTHORACIC ECHO (TTE) 2022-02-11 21:26:50 [facility] 2022-02-11 21:26:50 [facility]ELVIS W 2022-02-11 07:45:43 Reilly Means [facility] CONTRAST [facility] CT ABDOMEN PELVIS W 2022-02-11 07:45:43 Miguelangel [facility] CONTRAST [facility] RAPID INFLUENZA A/B 2022-02-11 06:54:00 Miguelangel [facility] RAPID INFLUENZA A/B 2022-02-11 06:54:00 Reilly Means [facility] URINALYSIS 2022-02-11 06:45:00 Reilly Means [facility] URINE CULTURE 2022-02-11 06:45:00 Reilly Means [facility] URINALYSIS 2022-02-11 06:45:00 Reilly Means [facility] URINE CULTURE 2022-02-11 06:45:00 Reilly Means [facility] HB ECG ROUTINE & RHYTHM 2022-02-11 05:22:08 Reilly Means [facility] HB ECG ROUTINE & RHYTHM 2022-02-11 05:22:08 Miguelangel Reilly [facility] BLOOD CULTURE SCREEN 2022-02-11 04:58:00 Reilly Means [facility] TROPONIN I 2022-02-11 04:58:00 Reilly Means [facility] COMP. METABOLIC PANEL 2022-02-11 04:58:00 Reilly Means [facility] ([id number]) Medical Branch CBC WITH DIFF 2022-02-11 04:58:00 Reilly Means [facility] PROTHROMBIN TIME / INR 2022-02-11 04:58:00 Reilly Means [facility] ACTIVATED PARTIAL THRMPLAS 2022-02-11 04:58:00 Reilly Means [facility] N-TERMINAL PRO-BNP 2022-02-11 04:58:00 Reilly Means [facility] LACTIC ACID WHOLE BLOOD 2022-02-11 04:58:00 Reilly Means [facility] COVID-19 (ID NOW RAPID 2022-02-11 04:58:00 Reilly Means [facility] TESTING) Medical Branch LAB ONLY COVID 2022-02-11 04:58:00 Reilly Means [facility] CBC WITH DIFF 2022-02-11 04:58:00 Reilly Means [facility] ACTIVATED PARTIAL THRMPLAS 2022-02-11 04:58:00 Reilly Means [facility] PROTHROMBIN TIME / INR 2022-02-11 04:58:00 Reilly Means [facility] COVID-19 (ID NOW RAPID 2022-02-11 04:58:00 Reilly Means [facility] TESTING) Medical Branch COMP. METABOLIC PANEL 2022-02-11 04:58:00 Reilly Means [facility] ([id number]) Medical Branch TROPONIN I 2022-02-11 04:58:00 Reilly Means [facility] N-TERMINAL PRO-BNP 2022-02-11 04:58:00 Reilly Means [facility] BLOOD CULTURE SCREEN 2022-02-11 04:58:00 Reilly Means [facility] LACTIC ACID WHOLE BLOOD 2022-02-11 04:58:00 Reilly Means [facility] LAB ONLY COVID 2022-02-11 04:58:00 Reilly Means [facility] INTERPRETATION [facility] XR CHEST 1 VW 2022-02-11 04:27:42 Miguelangel Reilly [facility] XR CHEST 1 VW 2022-02-11 04:27:42 Reilly Means [facility] HOSPITAL ADMISSION 2022-02-10 05:01:00 Doctor Unassigned, [facility] HOSPITAL ADMISSION 2022-02-10 05:01:00 Doctor Unassigned, [facility] ECG 12-LEAD 2021-07-14 15:14:00 Elan Lira [facility] [id number] 2021-06-17 00:00:00 RIKY CLARK [facility] GASTROINTESTINAL PANEL 2020-12-08 22:21:00 Eliseo Arce [facility] XR ABDOMEN 1 VW 2020-12-08 18:06:32 Eliseo Arce spital OR [place] < 1 HOUR 2020-09-05 22:39:00 Eliseo Arce spital SURGICAL PATHOLOGY REQUEST 2020-09-05 21:54:00 Eliseo Arce [facility] XR CHEST 1 VW PORTABLE 2020-09-05 19:55:00 Eliseo Arce [facility] DISCHARGE PATIENT 2020-09-05 17:27:55 Lucas Harris [facility] IL AN ELECTIVE 2020-09-05 16:47:23 Kirit [facility] ENDOTRACHEAL AIRWAY EGD, INTRAOPERATIVE 2020-09-05 16:27[facility] 2020-09-05 15:04:00 Sarai Maharaj [facility] TIME (PTT) M. PROTHROMBIN TIME WITH INR 2020-09-05 15:04:00 Mindy Maharaj [facility] MChelsie Plan of Care Planned Activity Planned Date Details Comments Source Future Scheduled 2023-02-10 Screening for [facility] Test 19:08:20 malignant neoplasm of colon (procedure) [code = 302563841] Future Scheduled 2023-02-10 Screening for [facility] Test 19:08:20 malignant neoplasm of colon (procedure) [code = 398078202] Future Scheduled 2023-02-10 Screening for [facility] Test 19:08:20 malignant neoplasm of colon (procedure) [code = 756264629] Future Scheduled 2023-02-10 SHINGLES VACCINES (1 Met [facility] Test 19:08:20 of 2) [code = SHINGLES VACCINES (1 of 2)] Future Scheduled 2023-02-10 BREAST CANCER [facility] Test 19:08:20 SCREENING [code = BREAST CANCER SCREENING] Future Scheduled 2023-02-10 Screening for [facility] Test 19:08:20 malignant neoplasm of colon (procedure) [code = 928027050] Future Scheduled 2023-02-10 Screening for [facility] Test 19:08:20 malignant neoplasm of colon (procedure) [code = 821231651] Future Scheduled 2023-02-10 HEPATITIS B VACCINES Met [facility] Test 19:08:20 (1 of 3 - Risk 3-dose series) [code = HEPATITIS B VACCINES (1 of 3 - Risk 3-dose series)] Future Scheduled 2023-02-10 COVID-19 VACCINE (3 - Me [facility] Test 19:08:20 Pfizer series) [code = COVID-19 VACCINE (3 - Pfizer series)] Future Scheduled 2023-02-10 65+ PNEUMOCOCCAL [facility] Test 19:08:20 VACCINE (4 - PPSV23 or PCV20) [code = 65+ PNEUMOCOCCAL VACCINE (4 - PPSV23 or PCV20)] Future Scheduled 2023-02-10 INFLUENZA VACCINE (#1) [facility] Test 19:08:20 [code = INFLUENZA VACCINE (#1)] Future Scheduled 2023-02-07 Screening for [facility] Test 14:07:46 malignant neoplasm of colon (procedure) [code = 183321589] Future Scheduled 2023-02-07 Screening for [facility] Test 14:07:46 malignant neoplasm of colon (procedure) [code = 365842234] Future Scheduled 2023-02-07 Screening for [facility] Test 14:07:46 malignant neoplasm of colon (procedure) [code = 543717464] Future Scheduled 2023-02-07 SHINGLES VACCINES (1 Met [facility] Test 14:07:46 of 2) [code = SHINGLES VACCINES (1 of 2)] Future Scheduled 2023-02-07 BREAST CANCER [facility] Test 14:07:46 SCREENING [code = BREAST CANCER SCREENING] Future Scheduled 2023-02-07 Screening for [facility] Test 14:07:46 malignant neoplasm of colon (procedure) [code = 318165248] Future Scheduled 2023-02-07 Screening for [facility] Test 14:07:46 malignant neoplasm of colon (procedure) [code = 885404556] Future Scheduled 2023-02-07 HEPATITIS B VACCINES Met [facility] Test 14:07:46 (1 of 3 - Risk 3-dose series) [code = HEPATITIS B VACCINES (1 of 3 - Risk 3-dose series)] Future Scheduled 2023-02-07 COVID-19 VACCINE (3 - Me [facility] Test 14:07:46 Pfizer series) [code = COVID-19 VACCINE (3 - Pfizer series)] Future Scheduled 2023-02-07 65+ PNEUMOCOCCAL [facility] Test 14:07:46 VACCINE (4 - PPSV23 or PCV20) [code = 65+ PNEUMOCOCCAL VACCINE (4 - PPSV23 or PCV20)] Future Scheduled 2023-02-07 INFLUENZA VACCINE (#1) [facility] Test 14:07:46 [code = INFLUENZA VACCINE (#1)] Future Scheduled 2023 Screening for [facility] Test 08:21:28 malignant neoplasm of colon (procedure) [code = 721998582] Future Scheduled 2023 Screening for [facility] Test 08:21:28 malignant neoplasm of colon (procedure) [code = 195123099] Future Scheduled 2023 Screening for [facility] Test 08:21:28 malignant neoplasm of colon (procedure) [code = 804989954] Future Scheduled 2023 SHINGLES VACCINES (1 Met [facility] Test 08:21:28 of 2) [code = SHINGLES VACCINES (1 of 2)] Future Scheduled 2023 BREAST CANCER [facility] Test 08:21:28 SCREENING [code = BREAST CANCER SCREENING] Future Scheduled 2023 Screening for [facility] Test 08:21:28 malignant neoplasm of colon (procedure) [code = 494275614] Future Scheduled 2023 Screening for [facility] Test 08:21:28 malignant neoplasm of colon (procedure) [code = 439476040] Future Scheduled 2023 HEPATITIS B VACCINES Met [facility] Test 08:21:28 (1 of 3 - Risk 3-dose series) [code = HEPATITIS B VACCINES (1 of 3 - Risk 3-dose series)] Future Scheduled 2023 COVID-19 VACCINE (3 - [facility] Test 08:21:28 Pfizer series) [code = COVID-19 VACCINE (3 - Pfizer series)] Future Scheduled 2023 65+ PNEUMOCOCCAL [facility] Test 08:21:28 VACCINE (4 - PPSV23 if available, else PCV20) [code = 65+ PNEUMOCOCCAL VACCINE (4 - PPSV23 if available, else PCV20)] Future Scheduled 2023 INFLUENZA VACCINE (#1) [facility] Test 08:21:28 [code = INFLUENZA VACCINE (#1)] Future Scheduled 2023 Screening for [facility] Test 08:21:28 malignant neoplasm of colon (procedure) [code = 173945551] Future Scheduled 2023 Screening for [facility] Test 08:21:28 malignant neoplasm of colon (procedure) [code = 372082221] Future Scheduled 2023 Screening for [facility] Test 08:21:28 malignant neoplasm of colon (procedure) [code = 290260166] Future Scheduled 2023 SHINGLES VACCINES (1 Met [facility] Test 08:21:28 of 2) [code = SHINGLES VACCINES (1 of 2)] Future Scheduled 2023 BREAST CANCER [facility] Test 08:21:28 SCREENING [code = BREAST CANCER SCREENING] Future Scheduled 2023 Screening for [facility] Test 08:21:28 malignant neoplasm of colon (procedure) [code = 528229772] Future Scheduled 2023 Screening for [facility] Test 08:21:28 malignant neoplasm of colon (procedure) [code = 808454714] Future Scheduled 2023 HEPATITIS B VACCINES Met [facility] Test 08:21:28 (1 of 3 - Risk 3-dose series) [code = HEPATITIS B VACCINES (1 of 3 - Risk 3-dose series)] Future Scheduled 2023 COVID-19 VACCINE (3 - [facility] Test 08:21:28 Pfizer series) [code = COVID-19 VACCINE (3 - Pfizer series)] Future Scheduled 2023 65+ PNEUMOCOCCAL [facility] Test 08:21:28 VACCINE (4 - PPSV23 if available, else PCV20) [code = 65+ PNEUMOCOCCAL VACCINE (4 - PPSV23 if available, else PCV20)] Future Scheduled 2023 INFLUENZA VACCINE (#1) [facility] Test 08:21:28 [code = INFLUENZA VACCINE (#1)] Future Scheduled 2023-01-17 Screening for [facility] Test 02:09:59 malignant neoplasm of colon (procedure) [code = 651383645] Future Scheduled 2023-01-17 Screening for [facility] Test 02:09:59 malignant neoplasm of colon (procedure) [code = 015070604] Future Scheduled 2023-01-17 Screening for [facility] Test 02:09:59 malignant neoplasm of colon (procedure) [code = 253746236] Future Scheduled 2023-01-17 SHINGLES VACCINES (1 Met [facility] Test 02:09:59 of 2) [code = SHINGLES VACCINES (1 of 2)] Future Scheduled 2023-01-17 BREAST CANCER [facility] Test 02:09:59 SCREENING [code = BREAST CANCER SCREENING] Future Scheduled 2023-01-17 Screening for [facility] Test 02:09:59 malignant neoplasm of colon (procedure) [code = 527090925] Future Scheduled 2023-01-17 Screening for [facility] Test 02:09:59 malignant neoplasm of colon (procedure) [code = 187196687] Future Scheduled 2023-01-17 HEPATITIS B VACCINES Met [facility] Test 02:09:59 (1 of 3 - Risk 3-dose series) [code = HEPATITIS B VACCINES (1 of 3 - Risk 3-dose series)] Future Scheduled 2023-01-17 COVID-19 VACCINE (3 - [facility] Test 02:09:59 Pfizer series) [code = COVID-19 VACCINE (3 - Pfizer series)] Future Scheduled 2023-01-17 65+ PNEUMOCOCCAL [facility] Test 02:09:59 VACCINE (4 - PPSV23 if available, else PCV20) [code = 65+ PNEUMOCOCCAL VACCINE (4 - PPSV23 if available, else PCV20)] Future Scheduled 2023-01-17 INFLUENZA VACCINE (#1) M [facility] Test 02:09:59 [code = INFLUENZA VACCINE (#1)] Future Scheduled 2022-12-23 Screening for [facility] Test 06:27:39 malignant neoplasm of colon (procedure) [code = 041770561] Future Scheduled 2022-12-23 Screening for [facility] Test 06:27:39 malignant neoplasm of colon (procedure) [code = 189001830] Future Scheduled 2022-12-23 Screening for [facility] Test 06:27:39 malignant neoplasm of colon (procedure) [code = 646245920] Future Scheduled 2022-12-23 SHINGLES VACCINES (1 Met [facility] Test 06:27:39 of 2) [code = SHINGLES VACCINES (1 of 2)] Future Scheduled 2022-12-23 BREAST CANCER [facility] Test 06:27:39 SCREENING [code = BREAST CANCER SCREENING] Future Scheduled 2022-12-23 Screening for [facility] Test 06:27:39 malignant neoplasm of colon (procedure) [code = 997948765] Future Scheduled 2022-12-23 Screening for [facility] Test 06:27:39 malignant neoplasm of colon (procedure) [code = 727261567] Future Scheduled 2022-12-23 HEPATITIS B VACCINES Met [facility] Test 06:27:39 (1 of 3 - Risk 3-dose series) [code = HEPATITIS B VACCINES (1 of 3 - Risk 3-dose series)] Future Scheduled 2022-12-23 COVID-19 VACCINE (3 - [facility] Test 06:27:39 Pfizer series) [code = COVID-19 VACCINE (3 - Pfizer series)] Future Scheduled 2022-12-23 65+ [facility] 06:27:39 VACCINE (4 - PPSV23 if available, else PCV20) [code = 65+ PNEUMOCOCCAL VACCINE (4 - PPSV23 if available, else PCV20)] Future Scheduled 2022-12-23 INFLUENZA VACCINE [facility] Test 06:27:39 [code = INFLUENZA VACCINE] Future Scheduled 2022-12-23 Screening for [facility] Test 06:27:39 malignant neoplasm of colon (procedure) [code = 709719757] Future Scheduled 2022-12-23 Screening for [facility] Test 06:27:39 malignant neoplasm of colon (procedure) [code = 605335306] Future Scheduled 2022-12-23 Screening for [facility] Test 06:27:39 malignant neoplasm of colon (procedure) [code = 646935316] Future Scheduled 2022-12-23 SHINGLES VACCINES (1 Met [facility] Test 06:27:39 of 2) [code = SHINGLES VACCINES (1 of 2)] Future Scheduled 2022-12-23 BREAST CANCER [facility] Test 06:27:39 SCREENING [code = BREAST CANCER SCREENING] Future Scheduled 2022-12-23 Screening for [facility] Test 06:27:39 malignant neoplasm of colon (procedure) [code = [id number]] Future Scheduled 2022-12-23 Screening for [facility] Test 06:27:39 malignant neoplasm of colon (procedure) [code = [id number]] Future Scheduled 2022-12-23 HEPATITIS B VACCINES [facility] Test 06:27:39 (1 of 3 - Risk 3-dose series) [code = HEPATITIS B VACCINES (1 of 3 - Risk 3-dose series)] Future Scheduled 2022-12-23 COVID-19 VACCINE (3 - [facility] Test 06:27:39 Pfizer series) [code = COVID-19 VACCINE (3 - Pfizer series)] Future Scheduled 2022-12-23 65[facility] VACCINE (4 - PPSV23 if available, else PCV20) [code = 65+ PNEUMOCOCCAL VACCINE (4 - PPSV23 if available, else PCV20)] Future Scheduled 2022-12-23 INFLUENZA VACCINE [facility] Test 06:27:39 [code = INFLUENZA VACCINE] Future Scheduled 2022-12-23 Screening for [facility] Test 06:27:39 malignant neoplasm of colon (procedure) [code = [id number]] Future Scheduled 2022-12-23 Screening for [facility] Test 06:27:39 malignant neoplasm of colon (procedure) [code = [id number]] Future Scheduled 2022-12-23 Screening for [facility] Test 06:27:39 malignant neoplasm of colon (procedure) [code = [id number]] Future Scheduled 2022-12-23 SHINGLES VACCINES (1 [facility] Test 06:27:39 of 2) [code = SHINGLES VACCINES (1 of 2)] Future Scheduled 2022-12-23 BREAST CANCER [facility] Test 06:27:39 SCREENING [code = BREAST CANCER SCREENING] Future Scheduled 2022-12-23 Screening for [facility] Test 06:27:39 malignant neoplasm of colon (procedure) [code = 350384604] Future Scheduled 2022-12-23 Screening for [facility] Test 06:27:39 malignant neoplasm of colon (procedure) [code = 223319801] Future Scheduled 2022-12-23 HEPATITIS B VACCINES [facility] Test 06:27:39 (1 of 3 - Risk 3-dose series) [code = HEPATITIS B VACCINES (1 of 3 - Risk 3-dose series)] Future Scheduled 2022-12-23 COVID-19 VACCINE (3 - [facility] Test 06:27:39 Pfizer series) [code = COVID-19 VACCINE (3 - Pfizer series)] Future Scheduled 2022-12-23 65+ PNEUMOCOCCAL [facility] Test 06:27:39 VACCINE (4 - PPSV23 if available, else PCV20) [code = 65+ PNEUMOCOCCAL VACCINE (4 - PPSV23 if available, else PCV20)] Future Scheduled 2022-12-23 INFLUENZA VACCINE [facility] Test 06:27:39 [code = INFLUENZA VACCINE] Future Scheduled 2022-12-23 Screening for [facility] Test 06:27:39 malignant neoplasm of colon (procedure) [code = [id number]] Future Scheduled 2022-12-23 Screening for [facility] Test 06:27:39 malignant neoplasm of colon (procedure) [code = 701531479] Future Scheduled 2022-12-23 Screening for [facility] Test 06:27:39 malignant neoplasm of colon (procedure) [code = 927551795] Future Scheduled 2022-12-23 SHINGLES VACCINES (1 Met [facility] Test 06:27:39 of 2) [code = SHINGLES VACCINES (1 of 2)] Future Scheduled 2022-12-23 BREAST CANCER [facility] Test 06:27:39 SCREENING [code = BREAST CANCER SCREENING] Future Scheduled 2022-12-23 Screening for [facility] Test 06:27:39 malignant neoplasm of colon (procedure) [code = 314547718] Future Scheduled 2022-12-23 Screening for [facility] Test 06:27:39 malignant neoplasm of colon (procedure) [code = 890560525] Future Scheduled 2022-12-23 HEPATITIS B VACCINES [facility] Test 06:27:39 (1 of 3 - Risk 3-dose series) [code = HEPATITIS B VACCINES (1 of 3 - Risk 3-dose series)] Future Scheduled 2022-12-23 COVID-19 VACCINE (3 - [facility] Test 06:27:39 Pfizer series) [code = COVID-19 VACCINE (3 - Pfizer series)] Future Scheduled 2022-12-23 65+ PNEUMOCOCCAL [facility] Test 06:27:39 VACCINE (4 - PPSV23 if available, else PCV20) [code = 65+ PNEUMOCOCCAL VACCINE (4 - PPSV23 if available, else PCV20)] Future Scheduled 2022-12-23 INFLUENZA VACCINE [facility] Test 06:27:39 [code = INFLUENZA VACCINE] Future Scheduled 2022-12-23 Screening for [facility] Test 06:27:39 malignant neoplasm of colon (procedure) [code = 423211503] Future Scheduled 2022-12-23 Screening for [facility] Test 06:27:39 malignant neoplasm of colon (procedure) [code = 412739760] Future Scheduled 2022-12-23 Screening for [facility] Test 06:27:39 malignant neoplasm of colon (procedure) [code = 853693732] Future Scheduled 2022-12-23 SHINGLES VACCINES (1 Met [facility] Test 06:27:39 of 2) [code = SHINGLES VACCINES (1 of 2)] Future Scheduled 2022-12-23 BREAST CANCER [facility] Test 06:27:39 SCREENING [code = BREAST CANCER SCREENING] Future Scheduled 2022-12-23 Screening for [facility] Test 06:27:39 malignant neoplasm of colon (procedure) [code = 407247021] Future Scheduled 2022-12-23 Screening for [facility] Test 06:27:39 malignant neoplasm of colon (procedure) [code = 736975284] Future Scheduled 2022-12-23 HEPATITIS B VACCINES [facility] Test 06:27:39 (1 of 3 - Risk 3-dose series) [code = HEPATITIS B VACCINES (1 of 3 - Risk 3-dose series)] Future Scheduled 2022-12-23 COVID-19 VACCINE (3 - [facility] Test 06:27:39 Pfizer series) [code = COVID-19 VACCINE (3 - Pfizer series)] Future Scheduled 2022-12-23 65+ PNEUMOCOCCAL [facility] Test 06:27:39 VACCINE (4 - PPSV23 if available, else PCV20) [code = 65+ PNEUMOCOCCAL VACCINE (4 - PPSV23 if available, else PCV20)] Future Scheduled 2022-12-[address] [facility] Test 06:27:39 [code = ZZZ INFLUENZA VACCINE] Future Scheduled 2022-12-23 Screening for [facility] Test 06:27:39 malignant neoplasm of colon (procedure) [code = 912699629] Future Scheduled 2022-12-23 Screening for [facility] Test 06:27:39 malignant neoplasm of colon (procedure) [code = 367185632] Future Scheduled 2022-12-23 Screening for [facility] Test 06:27:39 malignant neoplasm of colon (procedure) [code = 504782690] Future Scheduled 2022-12-23 SHINGLES VACCINES (1 Met [facility] Test 06:27:39 of 2) [code = SHINGLES VACCINES (1 of 2)] Future Scheduled 2022-12-23 BREAST CANCER [facility] Test 06:27:39 SCREENING [code = BREAST CANCER SCREENING] Future Scheduled 2022-12-23 Screening for [facility] Test 06:27:39 malignant neoplasm of colon (procedure) [code = 908918180] Future Scheduled 2022-12-23 Screening for [facility] Test 06:27:39 malignant neoplasm of colon (procedure) [code = 763542894] Future Scheduled 2022-12-23 HEPATITIS B VACCINES [facility] Test 06:27:39 (1 of 3 - Risk 3-dose series) [code = HEPATITIS B VACCINES (1 of 3 - Risk 3-dose series)] Future Scheduled 2022-12-23 COVID-19 VACCINE (3 - [facility] Test 06:27:39 Pfizer series) [code = COVID-19 VACCINE (3 - Pfizer series)] Future Scheduled 2022-12-23 65+ PNEUMOCOCCAL [facility] Test 06:27:39 VACCINE (4 - PPSV23 if available, else PCV20) [code = 65+ PNEUMOCOCCAL VACCINE (4 - PPSV23 if available, else PCV20)] Future Scheduled 2022-12-23 ZZZ INFLUENZA VACCINE [facility] Test 06:27:39 [code = ZZZ INFLUENZA VACCINE] Future Scheduled 2022-12-13 Screening for [facility] Test 16:46:16 malignant neoplasm of colon (procedure) [code = 772779460] Future Scheduled 2022-12-13 Screening for [facility] Test 16:46:16 malignant neoplasm of colon (procedure) [code = 447133373] Future Scheduled 2022-12-13 Screening for [facility] Test 16:46:16 malignant neoplasm of colon (procedure) [code = 316454014] Future Scheduled 2022-12-13 SHINGLES VACCINES (1 Met [facility] Test 16:46:16 of 2) [code = SHINGLES VACCINES (1 of 2)] Future Scheduled 2022-12-13 BREAST CANCER [facility] Test 16:46:16 SCREENING [code = BREAST CANCER SCREENING] Future Scheduled 2022-12-13 Screening for [facility] Test 16:46:16 malignant neoplasm of colon (procedure) [code = 645209441] Future Scheduled 2022-12-13 Screening for [facility] Test 16:46:16 malignant neoplasm of colon (procedure) [code = 116816320] Future Scheduled 2022-12-13 HEPATITIS B VACCINES [facility] Test 16:46:16 (1 of 3 - Risk 3-dose series) [code = HEPATITIS B VACCINES (1 of 3 - Risk 3-dose series)] Future Scheduled 2022-12-13 COVID-19 VACCINE (3 - Me [facility] Test 16:46:16 Pfizer series) [code = COVID-19 VACCINE (3 - Pfizer series)] Future Scheduled 2022-12-13 65[facility] 16:46:16 VACCINE (4 - PPSV23 if available, else PCV20) [code = 65+ PNEUMOCOCCAL VACCINE (4 - PPSV23 if available, else PCV20)] Future Scheduled 2022-12-13 INFLUENZA VACCINE [facility] Test 16:46:16 [code = INFLUENZA VACCINE] Future Scheduled 2022-12-13 Screening for [facility] Test 16:46:16 malignant neoplasm of colon (procedure) [code = 871989984] Future Scheduled 2022-12-13 Screening for [facility] Test 16:46:16 malignant neoplasm of colon (procedure) [code = 279900115] Future Scheduled 2022-12-13 Screening for [facility] Test 16:46:16 malignant neoplasm of colon (procedure) [code = 219878901] Future Scheduled 2022-12-13 SHINGLES VACCINES (1 Met [facility] Test 16:46:16 of 2) [code = SHINGLES VACCINES (1 of 2)] Future Scheduled 2022-12-13 BREAST CANCER [facility] Test 16:46:16 SCREENING [code = BREAST CANCER SCREENING] Future Scheduled 2022-12-13 Screening for [facility] Test 16:46:16 malignant neoplasm of colon (procedure) [code = 289535271] Future Scheduled 2022-12-13 Screening for [facility] Test 16:46:16 malignant neoplasm of colon (procedure) [code = 655267790] Future Scheduled 2022-12-13 HEPATITIS B VACCINES [facility] Test 16:46:16 (1 of 3 - Risk 3-dose series) [code = HEPATITIS B VACCINES (1 of 3 - Risk 3-dose series)] Future Scheduled 2022-12-13 COVID-19 VACCINE (3 - [facility] Test 16:46:16 Pfizer series) [code = COVID-19 VACCINE (3 - Pfizer series)] Future Scheduled 2022-12-13 65+ PNEUMOCOCCAL [facility] Test 16:46:16 VACCINE (4 - PPSV23 if available, else PCV20) [code = 65+ PNEUMOCOCCAL VACCINE (4 - PPSV23 if available, else PCV20)] Future Scheduled 2022-12-13 INFLUENZA VACCINE [facility] Test 16:46:16 [code = INFLUENZA VACCINE] Future Scheduled 2022-12-13 Screening for [facility] Test 16:46:16 malignant neoplasm of colon (procedure) [code = 546932197] Future Scheduled 2022-12-13 Screening for [facility] Test 16:46:16 malignant neoplasm of colon (procedure) [code = 076666770] Future Scheduled 2022-12-13 Screening for [facility] Test 16:46:16 malignant neoplasm of colon (procedure) [code = 612873346] Future Scheduled 2022-12-13 SHINGLES VACCINES (1 Met [facility] Test 16:46:16 of 2) [code = SHINGLES VACCINES (1 of 2)] Future Scheduled 2022-12-13 BREAST CANCER [facility] Test 16:46:16 SCREENING [code = BREAST CANCER SCREENING] Future Scheduled 2022-12-13 Screening for [facility] Test 16:46:16 malignant neoplasm of colon (procedure) [code = 117888185] Future Scheduled 2022-12-13 Screening for [facility] Test 16:46:16 malignant neoplasm of colon (procedure) [code = 383818617] Future Scheduled 2022-12-13 HEPATITIS B VACCINES [facility] Test 16:46:16 (1 of 3 - Risk 3-dose series) [code = HEPATITIS B VACCINES (1 of 3 - Risk 3-dose series)] Future Scheduled 2022-12-13 COVID-19 VACCINE (3 - [facility] Test 16:46:16 Pfizer series) [code = COVID-19 VACCINE (3 - Pfizer series)] Future Scheduled 2022-12-13 65+ PNEUMOCOCCAL [facility] Test 16:46:16 VACCINE (4 - PPSV23 if available, else PCV20) [code = 65+ PNEUMOCOCCAL VACCINE (4 - PPSV23 if available, else PCV20)] Future Scheduled 2022-12-13 INFLUENZA VACCINE [facility] Test 16:46:16 [code = INFLUENZA VACCINE] Future Scheduled 2022-11-11 Screening for [facility] Test 09:27:47 malignant neoplasm of colon (procedure) [code = 824897907] Future Scheduled 2022-11-11 Screening for [facility] Test 09:27:47 malignant neoplasm of colon (procedure) [code = 357363537] Future Scheduled 2022-11-11 Screening for [facility] Test 09:27:47 malignant neoplasm of colon (procedure) [code = 672549531] Future Scheduled 2022-11-11 SHINGLES VACCINES (1 Met [facility] Test 09:27:47 of 2) [code = SHINGLES VACCINES (1 of 2)] Future Scheduled 2022-11-11 BREAST CANCER [facility] Test 09:27:47 SCREENING [code = BREAST CANCER SCREENING] Future Scheduled 2022-11-11 Screening for [facility] Test 09:27:47 malignant neoplasm of colon (procedure) [code = 338024356] Future Scheduled 2022-11-11 Screening for [facility] Test 09:27:47 malignant neoplasm of colon (procedure) [code = 447422166] Future Scheduled 2022-11-11 HEPATITIS B VACCINES [facility] Test 09:27:47 (1 of 3 - Risk 3-dose series) [code = HEPATITIS B VACCINES (1 of 3 - Risk 3-dose series)] Future Scheduled 2022-11-11 COVID-19 VACCINE (3 - [facility] Test 09:27:47 Pfizer series) [code = COVID-19 VACCINE (3 - Pfizer series)] Future Scheduled 2022-11-11 65[facility] 09:27:47 VACCINE (4 - PPSV23 if available, else PCV20) [code = 65+ PNEUMOCOCCAL VACCINE (4 - PPSV23 if available, else PCV20)] Future Scheduled 2022-11-11 INFLUENZA VACCINE [facility] Test 09:27:47 [code = INFLUENZA VACCINE] Future Scheduled 2022-11-11 Screening for [facility] Test 09:27:47 malignant neoplasm of colon (procedure) [code = 667876770] Future Scheduled 2022-11-11 Screening for [facility] Test 09:27:47 malignant neoplasm of colon (procedure) [code = 175571779] Future Scheduled 2022-11-11 Screening for [facility] Test 09:27:47 malignant neoplasm of colon (procedure) [code = 086191429] Future Scheduled 2022-11-11 SHINGLES VACCINES (1 Met [facility] Test 09:27:47 of 2) [code = SHINGLES VACCINES (1 of 2)] Future Scheduled 2022-11-11 BREAST CANCER [facility] Test 09:27:47 SCREENING [code = BREAST CANCER SCREENING] Future Scheduled 2022-11-11 Screening for [facility] Test 09:27:47 malignant neoplasm of colon (procedure) [code = 607203836] Future Scheduled 2022-11-11 Screening for [facility] Test 09:27:47 malignant neoplasm of colon (procedure) [code = 252469203] Future Scheduled 2022-11-11 HEPATITIS B VACCINES [facility] Test 09:27:47 (1 of 3 - Risk 3-dose series) [code = HEPATITIS B VACCINES (1 of 3 - Risk 3-dose series)] Future Scheduled 2022-11-11 COVID-19 VACCINE (3 - [facility] Test 09:27:47 Pfizer series) [code = COVID-19 VACCINE (3 - Pfizer series)] Future Scheduled 2022-11-11 65+ PNEUMOCOCCAL [facility] Test 09:27:47 VACCINE (4 - PPSV23 if available, else PCV20) [code = 65+ PNEUMOCOCCAL VACCINE (4 - PPSV23 if available, else PCV20)] Future Scheduled 2022-11-11 INFLUENZA VACCINE [facility] Test 09:27:47 [code = INFLUENZA VACCINE] Future Scheduled 2022-11-11 Screening for [facility] Test 09:27:47 malignant neoplasm of colon (procedure) [code = 084495222] Future Scheduled 2022-11-11 Screening for [facility] Test 09:27:47 malignant neoplasm of colon (procedure) [code = 405155286] Future Scheduled 2022-11-11 Screening for [facility] Test 09:27:47 malignant neoplasm of colon (procedure) [code = 006699602] Future Scheduled 2022-11-11 SHINGLES VACCINES (1 Met [facility] Test 09:27:47 of 2) [code = SHINGLES VACCINES (1 of 2)] Future Scheduled 2022-11-11 BREAST CANCER [facility] Test 09:27:47 SCREENING [code = BREAST CANCER SCREENING] Future Scheduled 2022-11-11 Screening for [facility] Test 09:27:47 malignant neoplasm of colon (procedure) [code = 081548857] Future Scheduled 2022-11-11 Screening for [facility] Test 09:27:47 malignant neoplasm of colon (procedure) [code = 025155405] Future Scheduled 2022-11-11 HEPATITIS B VACCINES [facility] Test 09:27:47 (1 of 3 - Risk 3-dose series) [code = HEPATITIS B VACCINES (1 of 3 - Risk 3-dose series)] Future Scheduled 2022-11-11 COVID-19 VACCINE (3 - [facility] Test 09:27:47 Pfizer series) [code = COVID-19 VACCINE (3 - Pfizer series)] Future Scheduled 2022-11-11 65+ PNEUMOCOCCAL [facility] Test 09:27:47 VACCINE (4 - PPSV23 if available, else PCV20) [code = 65+ PNEUMOCOCCAL VACCINE (4 - PPSV23 if available, else PCV20)] Future Scheduled 2022-11-11 INFLU[facility]ZA VACCINE [facility] 09:27:47 [code = INFLUENZA VACCINE] Future Scheduled 2022-10-27 Screening for [facility] Test 22:40:19 malignant neoplasm of colon (procedure) [code = 420961404] Future Scheduled 2022-10-27 Screening for [facility] Test 22:40:19 malignant neoplasm of colon (procedure) [code = 117788576] Future Scheduled 2022-10-27 Screening for [facility] Test 22:40:19 malignant neoplasm of colon (procedure) [code = 253385107] Future Scheduled 2022-10-27 SHINGLES VACCINES (1 Met [facility] Test 22:40:19 of 2) [code = SHINGLES VACCINES (1 of 2)] Future Scheduled 2022-10-27 BREAST CANCER [facility] Test 22:40:19 SCREENING [code = BREAST CANCER SCREENING] Future Scheduled 2022-10-27 Screening for [facility] Test 22:40:19 malignant neoplasm of colon (procedure) [code = 269380501] Future Scheduled 2022-10-27 Screening for [facility] Test 22:40:19 malignant neoplasm of colon (procedure) [code = 935933071] Future Scheduled 2022-10-27 HEPATITIS B VACCINES [facility] Test 22:40:19 (1 of 3 - Risk 3-dose series) [code = HEPATITIS B VACCINES (1 of 3 - Risk 3-dose series)] Future Scheduled 2022-10-27 COVID-19 VACCINE (3 - [facility] Test 22:40:19 Pfizer series) [code = COVID-19 VACCINE (3 - Pfizer series)] Future Scheduled 2022-10-27 65+ [facility]:19 VACCINE (4 - PPSV23 if available, else PCV20) [code = 65+ PNEUMOCOCCAL VACCINE (4 - PPSV23 if available, else PCV20)] Future Scheduled 2022-10-27 INFLUENZA VACCINE [facility] 22:40:19 [code = INFLUENZA VACCINE] Future Scheduled 2022-10-27 Screening for [facility] Test 22:40:19 malignant neoplasm of colon (procedure) [code = 247764331] Future Scheduled 2022-10-27 Screening for [facility] Test 22:40:19 malignant neoplasm of colon (procedure) [code = 093319135] Future Scheduled 2022-10-27 Screening for [facility] Test 22:40:19 malignant neoplasm of colon (procedure) [code = 894470593] Future Scheduled 2022-10-27 SHINGLES VACCINES (1 Met [facility] Test 22:40:19 of 2) [code = SHINGLES VACCINES (1 of 2)] Future Scheduled 2022-10-27 BREAST CANCER [facility] Test 22:40:19 SCREENING [code = BREAST CANCER SCREENING] Future Scheduled 2022-10-27 Screening for [facility] Test 22:40:19 malignant neoplasm of colon (procedure) [code = 691295921] Future Scheduled 2022-10-27 Screening for [facility] Test 22:40:19 malignant neoplasm of colon (procedure) [code = 389111759] Future Scheduled 2022-10-27 HEPATITIS B VACCINES [facility] Test 22:40:19 (1 of 3 - Risk 3-dose series) [code = HEPATITIS B VACCINES (1 of 3 - Risk 3-dose series)] Future Scheduled 2022-10-27 COVID-19 VACCINE (3 - [facility] Test 22:40:19 Pfizer series) [code = COVID-19 VACCINE (3 - Pfizer series)] Future Scheduled 2022-10-27 65+ PNEUMOCOCCAL [facility] Test 22:40:19 VACCINE (4 - PPSV23 if available, else PCV20) [code = 65+ PNEUMOCOCCAL VACCINE (4 - PPSV23 if available, else PCV20)] Future Scheduled 2022-10-27 INFLUENZA VACCINE [facility] Test 22:40:19 [code = INFLUENZA VACCINE] Future Scheduled 2022-09-10 SHINGLES VACCINES (1 Met [facility] Test 15:06:53 of 2) [code = SHINGLES VACCINES (1 of 2)] Future Scheduled 2022-09-10 BREAST CANCER [facility] [facility] 15:06:53 SCREENING [code = BREAST CANCER SCREENING] Future Scheduled 2022-09-10 COLONOSCOPY SCREENING [facility] Test 15:06:53 [code = COLONOSCOPY SCREENING] Future Scheduled 2022-09-10 HEPATITIS B VACCINES Met [facility] Test 15:06:53 (1 of 3 - Risk 3-dose series) [code = HEPATITIS B VACCINES (1 of 3 - Risk 3-dose series)] Future Scheduled 2022-09-10 COVID-19 VACCINE (3 - Me [facility] Test 15:06:53 Booster for Pfizer series) [code = COVID-19 VACCINE (3 - Booster for Pfizer series)] Future Scheduled 2022-09-10 65+ PNEUMOCOCCAL [facility] Test 15:06:53 VACCINE (4 - PPSV23 if available, else PCV20) [code = 65+ PNEUMOCOCCAL VACCINE (4 - PPSV23 if available, else PCV20)] Future Scheduled 2022-09-10 INFLUENZA VACCINE Method [facility] Test 15:06:53 [code = INFLUENZA VACCINE] Future Scheduled 2022-09-10 SHINGLES VACCINES (1 Met [facility] Test 15:06:53 of 2) [code = SHINGLES VACCINES (1 of 2)] Future Scheduled 2022-09-10 BREAST CANCER [facility] Test 15:06:53 SCREENING [code = BREAST CANCER SCREENING] Future Scheduled 2022-09-10 COLONOSCOPY SCREENING [facility] Test 15:06:53 [code = COLONOSCOPY SCREENING] Future Scheduled 2022-09-10 HEPATITIS B VACCINES Met [facility] Test 15:06:53 (1 of 3 - Risk 3-dose series) [code = HEPATITIS B VACCINES (1 of 3 - Risk 3-dose series)] Future Scheduled 2022-09-10 COVID-19 VACCINE (3 - [facility] Test 15:06:53 Booster for Pfizer series) [code = COVID-19 VACCINE (3 - Booster for Pfizer series)] Future Scheduled 2022-09-10 65+ [facility] VACCINE (4 - PPSV23 if available, else PCV20) [code = 65+ PNEUMOCOCCAL VACCINE (4 - PPSV23 if available, else PCV20)] Future Scheduled 2022-09-10 INFLUENZA VACCINE Method [facility] Test 15:06:53 [code = INFLUENZA VACCINE] Future Scheduled 2022-09-10 SHINGLES VACCINES (1 Met [facility] Test 15:06:53 of 2) [code = SHINGLES VACCINES (1 of 2)] Future Scheduled 2022-09-10 BREAST CANCER [facility] Test 15:06:53 SCREENING [code = BREAST CANCER SCREENING] Future Scheduled 2022-09-10 COLONOSCOPY SCREENING [facility] Test 15:06:53 [code = COLONOSCOPY SCREENING] Future Scheduled 2022-09-10 HEPATITIS B VACCINES Met [facility] Test 15:06:53 (1 of 3 - Risk 3-dose series) [code = HEPATITIS B VACCINES (1 of 3 - Risk 3-dose series)] Future Scheduled 2022-09-10 COVID-19 VACCINE (3 - Me [facility] Test 15:06:53 Booster for Pfizer series) [code = COVID-19 VACCINE (3 - Booster for Pfizer series)] Future Scheduled 2022-09-10 65+ [facility] VACCINE (4 - PPSV23 if available, else PCV20) [code = 65+ PNEUMOCOCCAL VACCINE (4 - PPSV23 if available, else PCV20)] Future Scheduled 2022-09-10 INFLUENZA VACCINE Method [facility] Test 15:06:53 [code = INFLUENZA VACCINE] Future Scheduled 2022-09-10 SHINGLES VACCINES (1 Met [facility] Test 15:06:53 of 2) [code = SHINGLES VACCINES (1 of 2)] Future Scheduled 2022-09-10 BREAST CANCER [facility] Test 15:06:53 SCREENING [code = BREAST CANCER SCREENING] Future Scheduled 2022-09-10 COLONOSCOPY SCREENING [facility] Test 15:06:53 [code = COLONOSCOPY SCREENING] Future Scheduled 2022-09-10 HEPATITIS B VACCINES Met [facility] Test 15:06:53 (1 of 3 - Risk 3-dose series) [code = HEPATITIS B VACCINES (1 of 3 - Risk 3-dose series)] Future Scheduled 2022-09-10 COVID-19 VACCINE (3 - Me [facility] Test 15:06:53 Booster for Pfizer series) [code = COVID-19 VACCINE (3 - Booster for Pfizer series)] Future Scheduled 2022-09-10 65+ [facility] VACCINE (4 - PPSV23 if available, else PCV20) [code = 65+ PNEUMOCOCCAL VACCINE (4 - PPSV23 if available, else PCV20)] Future Scheduled 2022-09-10 INFLUENZA VACCINE Method [facility] Test 15:06:53 [code = INFLUENZA VACCINE] Future Scheduled 2022-09-10 SHINGLES VACCINES (1 Met [facility] Test 15:06:53 of 2) [code = SHINGLES VACCINES (1 of 2)] Future Scheduled 2022-09-10 BREAST CANCER [facility] Test 15:06:53 SCREENING [code = BREAST CANCER SCREENING] Future Scheduled 2022-09-10 COLONOSCOPY SCREENING [facility] Test 15:06:53 [code = COLONOSCOPY SCREENING] Future Scheduled 2022-09-10 HEPATITIS B VACCINES Met [facility] Test 15:06:53 (1 of 3 - Risk 3-dose series) [code = HEPATITIS B VACCINES (1 of 3 - Risk 3-dose series)] Future Scheduled 2022-09-10 COVID-19 VACCINE (3 - Me [facility] Test 15:06:53 Booster for Pfizer series) [code = COVID-19 VACCINE (3 - Booster for Pfizer series)] Future Scheduled 2022-09-10 65+ PNEUMOCOCCAL [facility] Test 15:06:53 VACCINE (4 - PPSV23 if available, else PCV20) [code = 65+ PNEUMOCOCCAL VACCINE (4 - PPSV23 if available, else PCV20)] Future Scheduled 2022-09-10 INFLUENZA VACCINE Method [facility] Test 15:06:53 [code = INFLUENZA VACCINE] Future Scheduled 2022-09-10 SHINGLES VACCINES (1 Met [facility] Test 15:06:53 of 2) [code = SHINGLES VACCINES (1 of 2)] Future Scheduled 2022-09-10 BREAST CANCER [facility] Test 15:06:53 SCREENING [code = BREAST CANCER SCREENING] Future Scheduled 2022-09-10 COLONOSCOPY SCREENING [facility] Test 15:06:53 [code = COLONOSCOPY SCREENING] Future Scheduled 2022-09-10 HEPATITIS B VACCINES Met [facility] Test 15:06:53 (1 of 3 - Risk 3-dose series) [code = HEPATITIS B VACCINES (1 of 3 - Risk 3-dose series)] Future Scheduled 2022-09-10 COVID-19 VACCINE (3 - Me [facility] Test 15:06:53 Booster for Pfizer series) [code = COVID-19 VACCINE (3 - Booster for Pfizer series)] Future Scheduled 2022-09-10 65+ [facility] VACCINE (4 - PPSV23 if available, else PCV20) [code = 65+ PNEUMOCOCCAL VACCINE (4 - PPSV23 if available, else PCV20)] Future Scheduled 2022-09-10 INFLUENZA VACCINE Method [facility] Test 15:06:53 [code = INFLUENZA VACCINE] Future Scheduled 2022-09-10 SHINGLES VACCINES (1 Met [facility] Test 15:06:53 of 2) [code = SHINGLES VACCINES (1 of 2)] Future Scheduled 2022-09-10 BREAST CANCER [facility] Test 15:06:53 SCREENING [code = BREAST CANCER SCREENING] Future Scheduled 2022-09-10 COLONOSCOPY SCREENING [facility] Test 15:06:53 [code = COLONOSCOPY SCREENING] Future Scheduled 2022-09-10 HEPATITIS B VACCINES Met [facility] Test 15:06:53 (1 of 3 - Risk 3-dose series) [code = HEPATITIS B VACCINES (1 of 3 - Risk 3-dose series)] Future Scheduled 2022-09-10 COVID-19 VACCINE (3 - [facility] Test 15:06:53 Booster for Pfizer series) [code = COVID-19 VACCINE (3 - Booster for Pfizer series)] Future Scheduled 2022-09-10 65+ PNEUMOCOCCAL [facility] Test 15:06:53 VACCINE (4 - PPSV23 if available, else PCV20) [code = 65+ PNEUMOCOCCAL VACCINE (4 - PPSV23 if available, else PCV20)] Future Scheduled 2022-09-10 INFLUENZA VACCINE Method [facility] Test 15:06:53 [code = INFLUENZA VACCINE] Future Scheduled 2022-09-10 SHINGLES VACCINES (1 Met [facility] Test 15:06:53 of 2) [code = SHINGLES VACCINES (1 of 2)] Future Scheduled 2022-09-10 BREAST CANCER [facility] Test 15:06:53 SCREENING [code = BREAST CANCER SCREENING] Future Scheduled 2022-09-10 COLONOSCOPY SCREENING [facility] Test 15:06:53 [code = COLONOSCOPY SCREENING] Future Scheduled 2022-09-10 HEPATITIS B VACCINES Met [facility] Test 15:06:53 (1 of 3 - Risk 3-dose series) [code = HEPATITIS B VACCINES (1 of 3 - Risk 3-dose series)] Future Scheduled 2022-09-10 COVID-19 VACCINE (3 - Me [facility] Test 15:06:53 Booster for Pfizer series) [code = COVID-19 VACCINE (3 - Booster for Pfizer series)] Future Scheduled 2022-09-10 65+ [facility] VACCINE (4 - PPSV23 if available, else PCV20) [code = 65+ PNEUMOCOCCAL VACCINE (4 - PPSV23 if available, else PCV20)] Future Scheduled 2022-09-10 INFLUENZA VACCINE Method [facility] Test 15:06:53 [code = INFLUENZA VACCINE] Future Scheduled 2022-08-26 SHINGLES VACCINES (1 Met [facility] Test 14:43:48 of 2) [code = SHINGLES VACCINES (1 of 2)] Future Scheduled 2022-08-26 BREAST CANCER [facility] Test 14:43:48 SCREENING [code = BREAST CANCER SCREENING] Future Scheduled 2022-08-26 COLONOSCOPY SCREENING [facility] Test 14:43:48 [code = COLONOSCOPY SCREENING] Future Scheduled 2022-08-26 HEPATITIS B VACCINES Met [facility] Test 14:43:48 (1 of 3 - Risk 3-dose series) [code = HEPATITIS B VACCINES (1 of 3 - Risk 3-dose series)] Future Scheduled 2022-08-26 COVID-19 VACCINE (3 - [facility] Test 14:43:48 Booster for Pfizer series) [code = COVID-19 VACCINE (3 - Booster for Pfizer series)] Future Scheduled 2022-08-26 65+ [facility] 14:43:48 VACCINE (4 - PPSV23 if available, else PCV20) [code = 65+ PNEUMOCOCCAL VACCINE (4 - PPSV23 if available, else PCV20)] Future Scheduled 2022-08-26 INFLUENZA VACCINE Method [facility] Test 14:43:48 [code = INFLUENZA VACCINE] Future Scheduled 2022-08-07 SHINGLES VACCINES (1 Met [facility] Test 23:30:11 of 2) [code = SHINGLES VACCINES (1 of 2)] Future Scheduled 2022-08-07 BREAST CANCER [facility] Test 23:30:11 SCREENING [code = BREAST CANCER SCREENING] Future Scheduled 2022-08-07 COLONOSCOPY SCREENING [facility] Test 23:30:11 [code = COLONOSCOPY SCREENING] Future Scheduled 2022-08-07 HEPATITIS B VACCINES Met [facility] Test 23:30:11 (1 of 3 - Risk 3-dose series) [code = HEPATITIS B VACCINES (1 of 3 - Risk 3-dose series)] Future Scheduled 2022-08-07 COVID-19 VACCINE (3 - Me [facility] Test 23:30:11 Booster for Pfizer series) [code = COVID-19 VACCINE (3 - Booster for Pfizer series)] Future Scheduled 2022-08-07 65+ [facility]:30:11 VACCINE (4 - PPSV23 if available, else PCV20) [code = 65+ PNEUMOCOCCAL VACCINE (4 - PPSV23 if available, else PCV20)] Future Scheduled 2022-08-07 INFLUENZA VACCINE Method [facility] Test 23:30:11 [code = INFLUENZA VACCINE] Future Scheduled 2022-08-07 SHINGLES VACCINES (1 Met [facility] Test 23:30:11 of 2) [code = SHINGLES VACCINES (1 of 2)] Future Scheduled 2022-08-07 BREAST CANCER [facility] Test 23:30:11 SCREENING [code = BREAST CANCER SCREENING] Future Scheduled 2022-08-07 COLONOSCOPY SCREENING [facility] Test 23:30:11 [code = COLONOSCOPY SCREENING] Future Scheduled 2022-08-07 HEPATITIS B VACCINES Met [facility] Test 23:30:11 (1 of 3 - Risk 3-dose series) [code = HEPATITIS B VACCINES (1 of 3 - Risk 3-dose series)] Future Scheduled 2022-08-07 COVID-19 VACCINE (3 - [facility] Test 23:30:11 Booster for Pfizer series) [code = COVID-19 VACCINE (3 - Booster for Pfizer series)] Future Scheduled 2022-08-07 65+ PNEUMOCOCCAL [facility] Test 23:30:11 VACCINE (4 - PPSV23 if available, else PCV20) [code = 65+ PNEUMOCOCCAL VACCINE (4 - PPSV23 if available, else PCV20)] Future Scheduled 2022-08-07 INFLUENZA VACCINE Method [facility] Test 23:30:11 [code = INFLUENZA VACCINE] Future Scheduled 2022-08-06 SHINGLES VACCINES (1 Met [facility] Test 15:48:02 of 2) [code = SHINGLES VACCINES (1 of 2)] Future Scheduled 2022-08-06 BREAST CANCER [facility] Test 15:48:02 SCREENING [code = BREAST CANCER SCREENING] Future Scheduled 2022-08-06 COLONOSCOPY SCREENING [facility] Test 15:48:02 [code = COLONOSCOPY SCREENING] Future Scheduled 2022-08-06 HEPATITIS B VACCINES Met [facility] Test 15:48:02 (1 of 3 - Risk 3-dose series) [code = HEPATITIS B VACCINES (1 of 3 - Risk 3-dose series)] Future Scheduled 2022-08-06 COVID-19 VACCINE (3 - Me [facility] Test 15:48:02 Booster for Pfizer series) [code = COVID-19 VACCINE (3 - Booster for Pfizer series)] Future Scheduled 2022-08-06 65+ PNEUMOCOCCAL [facility] Test 15:48:02 VACCINE (4 - PPSV23 if available, else PCV20) [code = 65+ PNEUMOCOCCAL VACCINE (4 - PPSV23 if available, else PCV20)] Future Scheduled 2022-08-06 INFLUENZA VACCINE Method [facility] Test 15:48:02 [code = INFLUENZA VACCINE] Future Scheduled 2022-06-11 SHINGLES VACCINES (1 Met [facility] Test 16:10:12 of 2) [code = SHINGLES VACCINES (1 of 2)] Future Scheduled 2022-06-11 BREAST CANCER [facility] Test 16:10:12 SCREENING [code = BREAST CANCER SCREENING] Future Scheduled 2022-06-11 COLONOSCOPY SCREENING [facility] Test 16:10:12 [code = COLONOSCOPY SCREENING] Future Scheduled 2022-06-11 HEPATITIS B VACCINES Met [facility] Test 16:10:12 (1 of 3 - Risk 3-dose series) [code = HEPATITIS B VACCINES (1 of 3 - Risk 3-dose series)] Future Scheduled 2022-06-11 COVID-19 VACCINE (3 - [facility] Test 16:10:12 Booster for Pfizer series) [code = COVID-19 VACCINE (3 - Booster for Pfizer series)] Future Scheduled 2022-06-11 65+ [facility]:10:12 VACCINE (4 - PPSV23 if available, else PCV20) [code = 65+ PNEUMOCOCCAL VACCINE (4 - PPSV23 if available, else PCV20)] Future Scheduled 2022-06-11 INFLUENZA VACCINE Method [facility] Test 16:10:12 [code = INFLUENZA VACCINE] Future Scheduled 2022-06-11 SHINGLES VACCINES (1 Met [facility] Test 16:10:12 of 2) [code = SHINGLES VACCINES (1 of 2)] Future Scheduled 2022-06-11 BREAST CANCER [facility] Test 16:10:12 SCREENING [code = BREAST CANCER SCREENING] Future Scheduled 2022-06-[address] [facility] Test 16:10:12 [code = COLONOSCOPY SCREENING] Future Scheduled 2022-06-11 HEPATITIS B VACCINES Met [facility] Test 16:10:12 (1 of 3 - Risk 3-dose series) [code = HEPATITIS B VACCINES (1 of 3 - Risk 3-dose series)] Future Scheduled 2022-06-11 COVID-19 VACCINE (3 - [facility] Test 16:10:12 Booster for Pfizer series) [code = COVID-19 VACCINE (3 - Booster for Pfizer series)] Future Scheduled 2022-06-11 65+ [facility] 16:10:12 VACCINE (4 - PPSV23 if available, else PCV20) [code = 65+ PNEUMOCOCCAL VACCINE (4 - PPSV23 if available, else PCV20)] Future Scheduled 2022-06-11 INFLUENZA VACCINE Method [facility] Test 16:10:12 [code = INFLUENZA VACCINE] Future Scheduled 2022-06-11 SHINGLES VACCINES (1 Met [facility] Test 16:10:12 of 2) [code = SHINGLES VACCINES (1 of 2)] Future Scheduled 2022-06-11 BREAST CANCER [facility] Test 16:10:12 SCREENING [code = BREAST CANCER SCREENING] Future Scheduled 2022-06-11 COLONOSCOPY SCREENING [facility] Test 16:10:12 [code = COLONOSCOPY SCREENING] Future Scheduled 2022-06-11 HEPATITIS B VACCINES Met [facility] Test 16:10:12 (1 of 3 - Risk 3-dose series) [code = HEPATITIS B VACCINES (1 of 3 - Risk 3-dose series)] Future Scheduled 2022-06-11 COVID-19 VACCINE (3 - [facility] Test 16:10:12 Booster for Pfizer series) [...] 2022-06-11 SHINGLES VACCINES (1 Met [facility] Test 16:10:12 of 2) [code = SHINGLES VACCINES (1 of 2)] Future Scheduled 2022-06-11 BREAST CANCER [facility] Test 16:10:12 SCREENING [code = BREAST CANCER SCREENING] Future Scheduled 2022-06-11 COLONOSCOPY SCREENING [facility] Test 16:10:12 [code = COLONOSCOPY SCREENING] Future Scheduled 2022-06-11 HEPATITIS B VACCINES Met [facility] Test 16:10:12 (1 of 3 - Risk 3-dose series) [code = HEPATITIS B VACCINES (1 of 3 - Risk 3-dose series)] Future Scheduled 2022-06-11 COVID-19 VACCINE (3 - [facility] Test 16:10:12 Booster for Pfizer series) [code = COVID-19 VACCINE (3 - Booster for Pfizer series)] Future Scheduled 2022-06-11 65+ [facility] 16:10:12 VACCINE (4 - PPSV23 if available, else PCV20) [code = 65+ PNEUMOCOCCAL VACCINE (4 - PPSV23 if available, else PCV20)] Future Scheduled 2022-06-11 INFLUENZA VACCINE Method [facility] Test 16:10:12 [code = INFLUENZA VACCINE] Future Scheduled 2022-06-11 SHINGLES VACCINES (1 Met [facility] Test 16:10:12 of 2) [code = SHINGLES VACCINES (1 of 2)] Future Scheduled 2022-06-11 BREAST CANCER [facility] Test 16:10:12 SCREENING [code = BREAST CANCER SCREENING] Future Scheduled 2022-06-11 COLONOSCOPY SCREENING [facility] Test 16:10:12 [code = COLONOSCOPY SCREENING] Future Scheduled 2022-06-11 HEPATITIS B VACCINES Met [facility] Test 16:10:12 (1 of 3 - Risk 3-dose series) [code = HEPATITIS B VACCINES (1 of 3 - Risk 3-dose series)] Future Scheduled 2022-06-11 COVID-19 VACCINE (3 - [facility] Test 16:10:12 Booster for Pfizer series) [...] 2022-06-11 SHINGLES VACCINES (1 Met [facility] Test 16:10:12 of 2) [code = SHINGLES VACCINES (1 of 2)] Future Scheduled 2022-06-11 BREAST CANCER [facility] Test 16:10:12 SCREENING [code = BREAST CANCER SCREENING] Future Scheduled 2022-06-11 COLONOSCOPY SCREENING [facility] Test 16:10:12 [code = COLONOSCOPY SCREENING] Future Scheduled 2022-06-11 HEPATITIS B VACCINES Met [facility] Test 16:10:12 (1 of 3 - Risk 3-dose series) [code = HEPATITIS B VACCINES (1 of 3 - Risk 3-dose series)] Future Scheduled 2022-06-11 COVID-19 VACCINE (3 - Me [facility] Test 16:10:12 Booster [...] 2022-06-11 SHINGLES VACCINES (1 Met [facility] Test 16:10:12 of 2) [code = SHINGLES VACCINES (1 of 2)] Future Scheduled 2022-06-11 BREAST CANCER [facility] Test 16:10:12 SCREENING [code = BREAST CANCER SCREENING] Future Scheduled 2022-06-11 COLONOSCOPY SCREENING [facility] Test 16:10:12 [code = COLONOSCOPY SCREENING] Future Scheduled 2022-06-11 HEPATITIS B VACCINES Met [facility] Test 16:10:12 (1 of 3 - Risk 3-dose series) [code = HEPATITIS B VACCINES (1 of 3 - Risk 3-dose series)] Future Scheduled 2022-06-11 COVID-19 VACCINE (3 - [facility] Test 16:10:12 Booster for Pfizer series) [code = COVID-19 VACCINE (3 - Booster for Pfizer series)] Future Scheduled 2022-06-11 65+ [facility] 16:10:12 VACCINE (4 - PPSV23 if available, else PCV20) [code = 65+ PNEUMOCOCCAL VACCINE (4 - PPSV23 if available, else PCV20)] Future Scheduled 2022-06-11 INFLUENZA VACCINE Method [facility] Test 16:10:12 [code = INFLUENZA VACCINE] Future Scheduled 2022-06-11 SHINGLES VACCINES (1 Met [facility] Test 16:10:12 of 2) [code = SHINGLES VACCINES (1 of 2)] Future Scheduled 2022-06-11 BREAST CANCER [facility] Test 16:10:12 SCREENING [code = BREAST CANCER SCREENING] Future Scheduled 2022-06-11 COLONOSCOPY SCREENING [facility] Test 16:10:12 [code = COLONOSCOPY SCREENING] Future Scheduled 2022-06-11 HEPATITIS B VACCINES Met [facility] Test 16:10:12 (1 of 3 - Risk 3-dose series) [code = HEPATITIS B VACCINES (1 of 3 - Risk 3-dose series)] Future Scheduled 2022-06-11 COVID-19 VACCINE (3 - Me [facility] Test 16:10:12 Booster for Pfizer series) [code = COVID-19 VACCINE (3 - Booster for Pfizer series)] Future Scheduled 2022-06-11 65+ [facility] 16:10:12 VACCINE (4 - PPSV23 if available, else PCV20) [code = 65+ PNEUMOCOCCAL VACCINE (4 - PPSV23 if available, else PCV20)] Future Scheduled 2022-06-11 INFLUENZA VACCINE Method [facility] Test 16:10:12 [code = INFLUENZA VACCINE] Future Scheduled 2022-06-11 SHINGLES VACCINES (1 Met [facility] Test 16:10:12 of 2) [code = SHINGLES VACCINES (1 of 2)] Future Scheduled 2022-06-11 BREAST CANCER [facility] Test 16:10:12 SCREENING [code = BREAST CANCER SCREENING] Future Scheduled 2022-06-11 COLONOSCOPY SCREENING [facility] Test 16:10:12 [code = COLONOSCOPY SCREENING] Future Scheduled 2022-06-11 HEPATITIS B VACCINES Met [facility] Test 16:10:12 (1 of 3 - Risk 3-dose series) [code = HEPATITIS B VACCINES (1 of 3 - Risk 3-dose series)] Future Scheduled 2022-06-11 COVID-19 VACCINE (3 - [facility] Test 16:10:12 Booster for Pfizer series) [...] 2022-05-10 SHINGLES VACCINES (1 Met [facility] Test 10:21:35 of 2) [code = SHINGLES VACCINES (1 of 2)] Future Scheduled 2022-05-10 BREAST CANCER [facility] Test 10:21:35 SCREENING [code = BREAST CANCER SCREENING] Future Scheduled 2022-05-10 COLONOSCOPY SCREENING [facility] Test 10:21:35 [code = COLONOSCOPY SCREENING] Future Scheduled 2022-05-10 HEPATITIS B VACCINES Met [facility] Test 10:21:35 (1 of 3 - Risk 3-dose series) [code = HEPATITIS B VACCINES (1 of 3 - Risk 3-dose series)] Future Scheduled 2022-05-10 COVID-19 VACCINE (3 - [facility] Test 10:21:35 Booster for Pfizer [...] 2022-05-10 SHINGLES VACCINES (1 Met [facility] Test 10:21:35 of 2) [code = SHINGLES VACCINES (1 of 2)] Future Scheduled 2022-05-10 BREAST CANCER [facility] Test 10:21:35 SCREENING [code = BREAST CANCER SCREENING] Future Scheduled 2022-05-10 COLONOSCOPY SCREENING [facility] Test 10:21:35 [code = COLONOSCOPY SCREENING] Future Scheduled 2022-05-10 HEPATITIS B VACCINES Met [facility] Test 10:21:35 (1 of 3 - Risk 3-dose series) [code = HEPATITIS B VACCINES (1 of 3 - Risk 3-dose series)] Future Scheduled 2022-05-10 COVID-19 VACCINE (3 - Me [facility] Test 10:21:35 Booster for Pfizer series) [code = COVID-19 VACCINE (3 - Booster for Pfizer series)] Future Scheduled 2022-05-10 65+ [facility] 10:21:35 VACCINE (4 - PPSV23 if available, else PCV20) [code = 65+ PNEUMOCOCCAL VACCINE (4 - PPSV23 if available, else PCV20)] Future Scheduled 2022-05-10 INFLUENZA VACCINE Method [facility] Test 10:21:35 [code = INFLUENZA VACCINE] Future Scheduled 2022-05-06 SHINGLES VACCINES (1 Met [facility] Test 14:03:13 of 2) [code = SHINGLES VACCINES (1 of 2)] Future Scheduled 2022-05-06 BREAST CANCER [facility] Test 14:03:13 SCREENING [code = BREAST CANCER SCREENING] Future Scheduled 2022-05-06 COLONOSCOPY SCREENING [facility] Test 14:03:13 [code = COLONOSCOPY SCREENING] Future Scheduled 2022-05-06 HEPATITIS B VACCINES Met [facility] Test 14:03:13 (1 of 3 - Risk 3-dose series) [code = HEPATITIS B VACCINES (1 of 3 - Risk 3-dose series)] Future Scheduled 2022-05-06 COVID-19 VACCINE (3 - [facility] Test 14:03:13 Booster for Pfizer series) [code = COVID-19 VACCINE (3 - Booster for Pfizer series)] Future Scheduled 2022-05-06 65+ [facility]:03:13 VACCINE (4 - PPSV23 if available, else PCV20) [code = 65+ PNEUMOCOCCAL VACCINE (4 - PPSV23 if available, else PCV20)] Future Scheduled 2022-05-06 INFLUENZA VACCINE Method [facility] Test 14:03:13 [code = INFLUENZA VACCINE] Future Scheduled 2022-04-30 SHINGLES VACCINES (1 Met [facility] Test 01:07:32 of 2) [code = SHINGLES VACCINES (1 of 2)] Future Scheduled 2022-04-30 BREAST CANCER [facility] Test 01:07:32 SCREENING [code = BREAST CANCER SCREENING] Future Scheduled 2022-04-30 COLONOSCOPY SCREENING [facility] Test 01:07:32 [code = COLONOSCOPY SCREENING] Future Scheduled 2022-04-30 HEPATITIS B VACCINES Met [facility] Test 01:07:32 (1 of 3 - Risk 3-dose series) [code = HEPATITIS B VACCINES (1 of 3 - Risk 3-dose series)] Future Scheduled 2022-04-30 COVID-19 VACCINE (3 - [facility] Test 01:07:32 Booster for Pfizer series) [code = COVID-19 VACCINE (3 - Booster for Pfizer series)] Future Scheduled 2022-04-30 65+ PNEUMOCOCCAL [facility] Test 01:07:32 VACCINE (4 - PPSV23 if available, else PCV20) [code = 65+ PNEUMOCOCCAL VACCINE (4 - PPSV23 if available, else PCV20)] Future Scheduled 2022-04-30 INFLUENZA VACCINE Method [facility] Test 01:07:32 [code = INFLUENZA VACCINE] Future Scheduled 2022-04-30 SHINGLES VACCINES (1 Met [facility] Test 01:07:32 of 2) [code = SHINGLES VACCINES (1 of 2)] Future Scheduled 2022-04-30 BREAST CANCER [facility] Test 01:07:32 SCREENING [code = BREAST CANCER SCREENING] Future Scheduled 2022-04-30 COLONOSCOPY SCREENING [facility] Test 01:07:32 [code = COLONOSCOPY SCREENING] Future Scheduled 2022-04-30 HEPATITIS B VACCINES Met [facility] Test 01:07:32 (1 of 3 - Risk 3-dose series) [code = HEPATITIS B VACCINES (1 of 3 - Risk 3-dose series)] Future Scheduled 2022-04-30 COVID-19 VACCINE (3 - [facility] Test 01:07:32 Booster for Pfizer series) [code = COVID-19 VACCINE (3 - Booster for Pfizer series)] Future Scheduled 2022-04-30 65+ PNEUMOCOCCAL [facility] Test 01:07:32 VACCINE (4 - PPSV23 if available, else PCV20) [code = 65+ PNEUMOCOCCAL VACCINE (4 - PPSV23 if available, else PCV20)] Future Scheduled 2022-04-30 INFLUENZA VACCINE Method [facility] Test 01:07:32 [code = INFLUENZA VACCINE] Future Scheduled 2022-04-30 SHINGLES VACCINES (1 Met [facility] Test 01:07:32 of 2) [code = SHINGLES VACCINES (1 of 2)] Future Scheduled 2022-04-30 BREAST CANCER [facility] Test 01:07:32 SCREENING [code = BREAST CANCER SCREENING] Future Scheduled 2022-04-30 COLONOSCOPY SCREENING [facility] Test 01:07:32 [code = COLONOSCOPY SCREENING] Future Scheduled 2022-04-30 HEPATITIS B VACCINES Met [facility] Test 01:07:32 (1 of 3 - Risk 3-dose series) [code = HEPATITIS B VACCINES (1 of 3 - Risk 3-dose series)] Future Scheduled 2022-04-30 COVID-19 VACCINE (3 - [facility] Test 01:07:32 Booster for Pfizer series) [code = COVID-19 VACCINE (3 - Booster for Pfizer series)] Future Scheduled 2022-04-30 65+ PNEUMOCOCCAL [facility] Test 01:07:32 VACCINE (4 - PPSV23 if available, else PCV20) [code = 65+ PNEUMOCOCCAL VACCINE (4 - PPSV23 if available, else PCV20)] Future Scheduled 2022-04-30 INFLUENZA VACCINE Method [facility] Test 01:07:32 [code = INFLUENZA VACCINE] Future Scheduled 2022-04-25 SHINGLES VACCINES (1 Met [facility] Test 01:45:02 of 2) [code = SHINGLES VACCINES (1 of 2)] Future Scheduled 2022-04-25 BREAST CANCER [facility] Test 01:45:02 SCREENING [code = BREAST CANCER SCREENING] Future Scheduled 2022-04-25 COLONOSCOPY SCREENING [facility] Test 01:45:02 [code = COLONOSCOPY SCREENING] Future Scheduled 2022-04-25 HEPATITIS B VACCINES Met [facility] Test 01:45:02 (1 of 3 - Risk 3-dose series) [code = HEPATITIS B VACCINES (1 of 3 - Risk 3-dose series)] Future Scheduled 2022-04-25 COVID-19 VACCINE (3 - [facility] Test 01:45:02 Booster for Pfizer series) [code = COVID-19 VACCINE (3 - Booster for Pfizer series)] Future Scheduled 2022-04-25 65+ PNEUMOCOCCAL [facility] Test 01:45:02 VACCINE (4 - PPSV23 if available, else PCV20) [code = 65+ PNEUMOCOCCAL VACCINE (4 - PPSV23 if available, else PCV20)] Future Scheduled 2022-04-25 INFLUENZA VACCINE Method [facility] Test 01:45:02 [code = INFLUENZA VACCINE] Future Scheduled 2022-03-25 SHINGLES VACCINES (1 Met [facility] Test 14:48:42 of 2) [code = SHINGLES VACCINES (1 of 2)] Future Scheduled 2022-03-25 BREAST CANCER [facility] Test 14:48:42 SCREENING [code = BREAST CANCER SCREENING] Future Scheduled 2022-03-25 COLONOSCOPY SCREENING [facility] Test 14:48:42 [code = COLONOSCOPY SCREENING] Future Scheduled 2022-03-25 HEPATITIS B VACCINES Met [facility] Test 14:48:42 (1 of 3 - Risk 3-dose series) [code = HEPATITIS B VACCINES (1 of 3 - Risk 3-dose series)] Future Scheduled 2022-03-25 COVID-19 VACCINE (3 - [facility] Test 14:48:42 Booster for Pfizer series) [code = COVID-19 VACCINE (3 - Booster for Pfizer series)] Future Scheduled 2022-03-25 65+ PNEUMOCOCCAL [facility] Test 14:48:42 VACCINE (4 - PPSV23 if available, else PCV20) [code = 65+ PNEUMOCOCCAL VACCINE (4 - PPSV23 if available, else PCV20)] Future Scheduled 2022-03-25 INFLUENZA VACCINE Method [facility] Test 14:48:42 [code = INFLUENZA VACCINE] Future Scheduled 2022-03-25 SHINGLES VACCINES (1 Met [facility] Test 14:48:42 of 2) [code = SHINGLES VACCINES (1 of 2)] Future Scheduled 2022-03-25 BREAST CANCER [facility] Test 14:48:42 SCREENING [code = BREAST CANCER SCREENING] Future Scheduled 2022-03-25 COLONOSCOPY SCREENING [facility] Test 14:48:42 [code = COLONOSCOPY SCREENING] Future Scheduled 2022-03-25 HEPATITIS B VACCINES Met [facility] Test 14:48:42 (1 of 3 - Risk 3-dose series) [code = HEPATITIS B VACCINES (1 of 3 - Risk 3-dose series)] Future Scheduled 2022-03-25 COVID-19 VACCINE (3 - Me [facility] Test 14:48:42 Booster for Pfizer series) [code = COVID-19 VACCINE (3 - Booster for Pfizer series)] Future Scheduled 2022-03-25 65[facility] VACCINE (4 - PPSV23 if available, else PCV20) [code = 65+ PNEUMOCOCCAL VACCINE (4 - PPSV23 if available, else PCV20)] Future Scheduled 2022-03-25 INFLUENZA VACCINE Method [facility] Test 14:48:42 [code = INFLUENZA VACCINE] Future Scheduled 2022-03-25 SHINGLES VACCINES (1 Met [facility] Test 14:48:42 of 2) [code = SHINGLES VACCINES (1 of 2)] Future Scheduled 2022-03-25 BREAST CANCER [facility] Test 14:48:42 SCREENING [code = BREAST CANCER SCREENING] Future Scheduled 2022-03-25 COLONOSCOPY SCREENING [facility] Test 14:48:42 [code = COLONOSCOPY SCREENING] Future Scheduled 2022-03-25 HEPATITIS B VACCINES Met [facility] Test 14:48:42 (1 of 3 - Risk 3-dose series) [code = HEPATITIS B VACCINES (1 of 3 - Risk 3-dose series)] Future Scheduled 2022-03-25 COVID-19 VACCINE (3 - [facility] Test 14:48:42 Booster for Pfizer series) [code = COVID-19 VACCINE (3 - Booster for Pfizer series)] Future Scheduled 2022-03-25 65+ [facility] 14:48[facility]42 VACCINE (4 - PPSV23 if available, else PCV20) [code = 65+ PNEUMOCOCCAL VACCINE (4 - PPSV23 if available, else PCV20)] Future Scheduled 2022-03-25 INFLUENZA VACCINE Method [facility] Test 14:48:42 [code = INFLUENZA VACCINE] Future Scheduled 2022-03-25 SHINGLES VACCINES (1 Met [facility] Test 14:48:42 of 2) [code = SHINGLES VACCINES (1 of 2)] Future Scheduled 2022-03-25 BREAST CANCER [facility] Test 14:48:42 SCREENING [code = BREAST CANCER SCREENING] Future Scheduled 2022-03-25 COLONOSCOPY SCREENING [facility] Test 14:48:42 [code = COLONOSCOPY SCREENING] Future Scheduled 2022-03-25 HEPATITIS B VACCINES Met [facility] Test 14:48:42 (1 of 3 - Risk 3-dose series) [code = HEPATITIS B VACCINES (1 of 3 - Risk 3-dose series)] Future Scheduled 2022-03-25 COVID-19 VACCINE (3 - Me [facility] Test 14:48:42 Booster for Pfizer series) [code = COVID-19 VACCINE (3 - Booster for Pfizer series)] Future Scheduled 2022-03-25 65+ PNEUMOCOCCAL [facility] Test 14:48:42 VACCINE (4 - PPSV23 if available, else PCV20) [code = 65+ PNEUMOCOCCAL VACCINE (4 - PPSV23 if available, else PCV20)] Future Scheduled 2022-03-25 INFLUENZA VACCINE Method [facility] Test 14:48:42 [code = INFLUENZA VACCINE] Future Scheduled 2022-03-25 SHINGLES VACCINES (1 Met [facility] Test 14:48:42 of 2) [code = SHINGLES VACCINES (1 of 2)] Future Scheduled 2022-03-25 BREAST CANCER [facility] Test 14:48:42 SCREENING [code = BREAST CANCER SCREENING] Future Scheduled 2022-03-25 COLONOSCOPY SCREENING [facility] Test 14:48:42 [code = COLONOSCOPY SCREENING] Future Scheduled 2022-03-25 HEPATITIS B VACCINES Met [facility] Test 14:48:42 (1 of 3 - Risk 3-dose series) [code = HEPATITIS B VACCINES (1 of 3 - Risk 3-dose series)] Future Scheduled 2022-03-25 COVID-19 VACCINE (3 - [facility] Test 14:48:42 Booster for Pfizer series) [code = COVID-19 VACCINE (3 - Booster for Pfizer series)] Future Scheduled 2022-03-25 65[facility] 14:48[facility] VACCINE (4 - PPSV23 if available, else PCV20) [code = 65+ PNEUMOCOCCAL VACCINE (4 - PPSV23 if available, else PCV20)] Future Scheduled 2022-03-25 INFLUENZA VACCINE Method [facility] Test 14:48:42 [code = INFLUENZA VACCINE] Future Scheduled 2022-03-25 SHINGLES VACCINES (1 Met [facility] Test 14:48:42 of 2) [code = SHINGLES VACCINES (1 of 2)] Future Scheduled 2022-03-25 BREAST CANCER [facility] Test 14:48:42 SCREENING [code = BREAST CANCER SCREENING] Future Scheduled 2022-03-[address] [facility] Test 14:48:42 [code = COLONOSCOPY SCREENING] Future Scheduled 2022-03-25 HEPATITIS B VACCINES Met [facility] Test 14:48:42 (1 of 3 - Risk 3-dose series) [code = HEPATITIS B VACCINES (1 of 3 - Risk 3-dose series)] Future Scheduled 2022-03-25 COVID-19 VACCINE (3 - [facility] Test 14:48:42 Booster for Pfizer series) [code = COVID-19 VACCINE (3 - Booster for Pfizer series)] Future Scheduled 2022-03-25 65+ [facility] 14:48:42 VACCINE (4 - PPSV23 if available, else PCV20) [code = 65+ PNEUMOCOCCAL VACCINE (4 - PPSV23 if available, else PCV20)] Future Scheduled 2022-03-25 INFLUENZA VACCINE Method [facility] Test 14:48:42 [code = INFLUENZA VACCINE] Future Scheduled 2022-03-25 SHINGLES VACCINES (1 Met [facility] Test 14:48:42 of 2) [code = SHINGLES VACCINES (1 of 2)] Future Scheduled 2022-03-25 BREAST CANCER [facility] Test 14:48:42 SCREENING [code = BREAST CANCER SCREENING] Future Scheduled 2022-03-25 COLONOSCOPY SCREENING [facility] Test 14:48:42 [code = COLONOSCOPY SCREENING] Future Scheduled 2022-03-25 HEPATITIS B VACCINES Met [facility] Test 14:48:42 (1 of 3 - Risk 3-dose series) [code = HEPATITIS B VACCINES (1 of 3 - Risk 3-dose series)] Future Scheduled 2022-03-25 COVID-19 VACCINE (3 - [facility] Test 14:48:42 Booster for Pfizer series) [...] 2022-03-25 SHINGLES VACCINES (1 Met [facility] Test 14:48:42 of 2) [code = SHINGLES VACCINES (1 of 2)] Future Scheduled 2022-03-25 BREAST CANCER [facility] Test 14:48:42 SCREENING [code = BREAST CANCER SCREENING] Future Scheduled 2022-03-25 COLONOSCOPY SCREENING [facility] Test 14:48:42 [code = COLONOSCOPY SCREENING] Future Scheduled 2022-03-25 HEPATITIS B VACCINES Met [facility] Test 14:48:42 (1 of 3 - Risk 3-dose series) [code = HEPATITIS B VACCINES (1 of 3 - Risk 3-dose series)] Future Scheduled 2022-03-25 COVID-19 VACCINE (3 - [facility] Test 14:48:42 Booster for Pfizer series) [code = COVID-19 VACCINE (3 - Booster for Pfizer series)] Future Scheduled 2022-03-25 65+ [facility] 14:48:42 VACCINE (4 - PPSV23 if available, else PCV20) [code = 65+ PNEUMOCOCCAL VACCINE (4 - PPSV23 if available, else PCV20)] Future Scheduled 2022-03-25 INFLUENZA VACCINE Method [facility] Test 14:48:42 [code = INFLUENZA VACCINE] Future Scheduled 2022-03-25 SHINGLES VACCINES (1 Met [facility] Test 14:48:42 of 2) [code = SHINGLES VACCINES (1 of 2)] Future Scheduled 2022-03-25 BREAST CANCER [facility] Test 14:48:42 SCREENING [code = BREAST CANCER SCREENING] Future Scheduled 2022-03-25 COLONOSCOPY SCREENING [facility] Test 14:48:42 [code = COLONOSCOPY SCREENING] Future Scheduled 2022-03-25 HEPATITIS B VACCINES Met [facility] Test 14:48:42 (1 of 3 - Risk 3-dose series) [code = HEPATITIS B VACCINES (1 of 3 - Risk 3-dose series)] Future Scheduled 2022-03-25 COVID-19 VACCINE (3 - [facility] Test 14:48:42 Booster for [...] 2022-03-04 SHINGLES VACCINES (1 Met [facility] Test 14:03:57 of 2) [code = SHINGLES VACCINES (1 of 2)] Future Scheduled 2022-03-04 BREAST CANCER [facility] Test 14:03:57 SCREENING [code = BREAST CANCER SCREENING] Future Scheduled 2022-03-04 COLONOSCOPY SCREENING [facility] Test 14:03:57 [code = COLONOSCOPY SCREENING] Future Scheduled 2022-03-04 HEPATITIS B VACCINES Met [facility] Test 14:03:57 (1 of 3 - Risk 3-dose series) [code = HEPATITIS B VACCINES (1 of 3 - Risk 3-dose series)] Future Scheduled 2022-03-04 COVID-19 VACCINE (3 - [facility] Test 14:03:57 Booster for Pfizer series) [code = COVID-19 VACCINE (3 - Booster for Pfizer series)] Future Scheduled 2022-03-04 65[facility] VACCINE (4 - PPSV23 if available, else PCV20) [code = 65+ PNEUMOCOCCAL VACCINE (4 - PPSV23 if available, else PCV20)] Future Scheduled 2022-03-04 INFLUENZA VACCINE Method [facility] Test 14:03:57 [code = INFLUENZA VACCINE] Future Scheduled 2022-03-04 SHINGLES VACCINES (1 Met [facility] Test 14:03:57 of 2) [code = SHINGLES VACCINES (1 of 2)] Future Scheduled 2022-03-04 BREAST CANCER [facility] Test 14:03:57 SCREENING [code = BREAST CANCER SCREENING] Future Scheduled 2022-03-04 COLONOSCOPY SCREENING [facility] Test 14:03:57 [code = COLONOSCOPY SCREENING] Future Scheduled 2022-03-04 HEPATITIS B VACCINES Met [facility] Test 14:03:57 (1 of 3 - Risk 3-dose series) [code = HEPATITIS B VACCINES (1 of 3 - Risk 3-dose series)] Future Scheduled 2022-03-04 COVID-19 VACCINE (3 - [facility] Test 14:03:57 Booster for Pfizer series) [code = COVID-19 VACCINE (3 - Booster for Pfizer series)] Future Scheduled 2022-03-04 65+ PNEUMOCOCCAL [facility] Test 14:03:57 VACCINE (4 - PPSV23 if available, else PCV20) [code = 65+ PNEUMOCOCCAL VACCINE (4 - PPSV23 if available, else PCV20)] Future Scheduled 2022-03-04 INFLUENZA VACCINE Method [facility] Test 14:03:57 [code = INFLUENZA VACCINE] Future Scheduled 2022-03-04 SHINGLES VACCINES (1 Met [facility] Test 14:03:57 of 2) [code = SHINGLES VACCINES (1 of 2)] Future Scheduled 2022-03-04 BREAST CANCER [facility] Test 14:03:57 SCREENING [code = BREAST CANCER SCREENING] Future Scheduled 2022-03-04 COLONOSCOPY SCREENING [facility] Test 14:03:57 [code = COLONOSCOPY SCREENING] Future Scheduled 2022-03-04 HEPATITIS B VACCINES Met [facility] Test 14:03:57 (1 of 3 - Risk 3-dose series) [code = HEPATITIS B VACCINES (1 of 3 - Risk 3-dose series)] Future Scheduled 2022-03-04 COVID-19 VACCINE (3 - [facility] Test 14:03:57 Booster for Pfizer series) [code = COVID-19 VACCINE (3 - Booster for Pfizer series)] Future Scheduled 2022-03-04 65+ PNEUMOCOCCAL [facility] Test 14:03:57 VACCINE (4 - PPSV23 if available, else PCV20) [code = 65+ PNEUMOCOCCAL VACCINE (4 - PPSV23 if available, else PCV20)] Future Scheduled 2022-03-04 INFLUENZA VACCINE Method [facility] Test 14:03:57 [code = INFLUENZA VACCINE] Future Scheduled 2022-03-04 SHINGLES VACCINES (1 Met [facility] Test 14:03:57 of 2) [code = SHINGLES VACCINES (1 of 2)] Future Scheduled 2022-03-04 BREAST CANCER [facility] Test 14:03:57 SCREENING [code = BREAST CANCER SCREENING] Future Scheduled 2022-03-04 COLONOSCOPY SCREENING [facility] Test 14:03:57 [code = COLONOSCOPY SCREENING] Future Scheduled 2022-03-04 HEPATITIS B VACCINES Met [facility] Test 14:03:57 (1 of 3 - Risk 3-dose series) [code = HEPATITIS B VACCINES (1 of 3 - Risk 3-dose series)] Future Scheduled 2022-03-04 COVID-19 VACCINE (3 - [facility] Test 14:03:57 Booster for Pfizer series) [code = COVID-19 VACCINE (3 - Booster for Pfizer series)] Future Scheduled 2022-03-04 65+ PNEUMOCOCCAL [facility] Test 14:03:57 VACCINE (4 - PPSV23 if available, else PCV20) [code = 65+ PNEUMOCOCCAL VACCINE (4 - PPSV23 if available, else PCV20)] Future Scheduled 2022-03-04 INFLUENZA VACCINE Method [facility] Test 14:03:57 [code = INFLUENZA VACCINE] Future Scheduled 2022-02-11 SHINGLES VACCINES (1 Met [facility] Test 13:39:12 of 2) [code = SHINGLES VACCINES (1 of 2)] Future Scheduled 2022-02-11 BREAST CANCER [facility] Test 13:39:12 SCREENING [code = BREAST CANCER SCREENING] Future Scheduled 2022-02-11 COLONOSCOPY SCREENING [facility] Test 13:39:12 [code = COLONOSCOPY SCREENING] Future Scheduled 2022-02-11 HEPATITIS B VACCINES Met [facility] Test 13:39:12 (1 of 3 - Risk 3-dose series) [code = HEPATITIS B VACCINES (1 of 3 - Risk 3-dose series)] Future Scheduled 2022-02-11 COVID-19 VACCINE (3 - [facility] Test 13:39:12 Booster for Pfizer series) [code = COVID-19 VACCINE (3 - Booster for Pfizer series)] Future Scheduled 2022-02-11 65+ PNEUMOCOCCAL [facility] Test 13:39:12 VACCINE (4 - PPSV23 or PCV20) [code = 65+ PNEUMOCOCCAL VACCINE (4 - PPSV23 or PCV20)] Future Scheduled 2022-02-11 INFLUENZA VACCINE Method [facility] Test 13:39:12 [code = INFLUENZA VACCINE] Future Scheduled 2022-01-29 SHINGLES VACCINES (1 Met [facility] Test 14:07:20 of 2) [code = SHINGLES VACCINES (1 of 2)] Future Scheduled 2022-01-29 BREAST CANCER [facility] Test 14:07:20 SCREENING [code = BREAST CANCER SCREENING] Future Scheduled 2022-01-29 COLONOSCOPY SCREENING [facility] Test 14:07:20 [code = COLONOSCOPY SCREENING] Future Scheduled 2022-01-29 HEPATITIS B VACCINES Met [facility] Test 14:07:20 (1 of 3 - Risk 3-dose series) [code = HEPATITIS B VACCINES (1 of 3 - Risk 3-dose series)] Future Scheduled 2022-01-29 COVID-19 VACCINE (3 - Me [facility] Test 14:07:20 Booster for Pfizer series) [code = COVID-19 VACCINE (3 - Booster for Pfizer series)] Future Scheduled 2022-01-29 65[facility] VACCINE (4 - PPSV23 or PCV20) [code = 65+ PNEUMOCOCCAL VACCINE (4 - PPSV23 or PCV20)] Future Scheduled 2022-01-29 INFLUENZA VACCINE Method [facility] Test 14:07:20 [code = INFLUENZA VACCINE] Future Scheduled 2022-01-29 SHINGLES VACCINES (1 Met [facility] Test 14:07:20 of 2) [code = SHINGLES VACCINES (1 of 2)] Future Scheduled 2022-01-29 BREAST CANCER [facility] Test 14:07:20 SCREENING [code = BREAST CANCER SCREENING] Future Scheduled 2022-01-29 COLONOSCOPY SCREENING [facility] Test 14:07:20 [code = COLONOSCOPY SCREENING] Future Scheduled 2022-01-29 HEPATITIS B VACCINES Met [facility] Test 14:07:20 (1 of 3 - Risk 3-dose series) [code = HEPATITIS B VACCINES (1 of 3 - Risk 3-dose series)] Future Scheduled 2022-01-29 COVID-19 VACCINE (3 - Me [facility] Test 14:07:20 Booster for Pfizer series) [code = COVID-19 VACCINE (3 - Booster for Pfizer series)] Future Scheduled 2022-01-29 65+ [facility] 14:07[facility] VACCINE (4 - PPSV23 or PCV20) [code = 65+ PNEUMOCOCCAL VACCINE (4 - PPSV23 or PCV20)] Future Scheduled 2022-01-29 INFLUENZA VACCINE Method [facility] Test 14:07:20 [code = INFLUENZA VACCINE] Future Scheduled 2022-01-29 SHINGLES VACCINES (1 Met [facility] Test 14:07:20 of 2) [code = SHINGLES VACCINES (1 of 2)] Future Scheduled 2022-01-29 BREAST CANCER [facility] Test 14:07:20 SCREENING [code = BREAST CANCER SCREENING] Future Scheduled 2022-01-29 COLONOSCOPY SCREENING [facility] Test 14:07:20 [code = COLONOSCOPY SCREENING] Future Scheduled 2022-01-29 HEPATITIS B VACCINES Met [facility] Test 14:07:20 (1 of 3 - Risk 3-dose series) [code = HEPATITIS B VACCINES (1 of 3 - Risk 3-dose series)] Future Scheduled 2022-01-29 COVID-19 VACCINE (3 - Me [facility] Test 14:07:20 Booster for Pfizer series) [code = COVID-19 VACCINE (3 - Booster for Pfizer series)] Future Scheduled 2022-01-29 65+ PNEUMOCOCCAL [facility] Test 14:07:20 VACCINE (4 - PPSV23 or PCV20) [code = 65+ PNEUMOCOCCAL VACCINE (4 - PPSV23 or PCV20)] Future Scheduled 2022-01-29 INFLUENZA VACCINE Method [facility] Test 14:07:20 [code = INFLUENZA VACCINE] Future Scheduled 2022-01-29 SHINGLES VACCINES (1 Met [facility] Test 14:07:20 of 2) [code = SHINGLES VACCINES (1 of 2)] Future Scheduled 2022-01-29 BREAST CANCER [facility] Test 14:07:20 SCREENING [code = BREAST CANCER SCREENING] Future Scheduled 2022-01-29 COLONOSCOPY SCREENING [facility] Test 14:07:20 [code = COLONOSCOPY SCREENING] Future Scheduled 2022-01-29 HEPATITIS B VACCINES Met [facility] Test 14:07:20 (1 of 3 - Risk 3-dose series) [code = HEPATITIS B VACCINES (1 of 3 - Risk 3-dose series)] Future Scheduled 2022-01-29 COVID-19 VACCINE (3 - [facility] Test 14:07:20 Booster for Pfizer series) [code = COVID-19 VACCINE (3 - Booster for Pfizer series)] Future Scheduled 2022-01-29 65+ [facility] VACCINE (4 - PPSV23 or PCV20) [code = 65+ PNEUMOCOCCAL VACCINE (4 - PPSV23 or PCV20)] Future Scheduled 2022-01-29 INFLUENZA VACCINE Method [facility] Test 14:07:20 [code = INFLUENZA VACCINE] Future Scheduled 2022-01-20 SHINGLES VACCINES (1 Met [facility] Test 06:12:34 of 2) [code = SHINGLES VACCINES (1 of 2)] Future Scheduled 2022-01-20 Screening for [facility] Test 06:12:34 malignant neoplasm of cervix (procedure) [code = 110551066] Future Scheduled 2022-01-20 BREAST CANCER [facility] Test 06:12:34 SCREENING [code = BREAST CANCER SCREENING] Future Scheduled 2022-01-20 COLONOSCOPY SCREENING [facility] Test 06:12:34 [code = COLONOSCOPY SCREENING] Future Scheduled 2022-01-20 HEPATITIS B VACCINES Met [facility] Test 06:12:34 (1 of 3 - Risk 3-dose series) [code = HEPATITIS B VACCINES (1 of 3 - Risk 3-dose series)] Future Scheduled 2022-01-20 COVID-19 VACCINE (3 - [facility] Test 06:12:34 Booster for Pfizer series) [code = COVID-19 VACCINE (3 - Booster for Pfizer series)] Future Scheduled 2022-01-20 65+ PNEUMOCOCCAL [facility] Test 06:12:34 VACCINE (4 - PPSV23 or PCV20) [code = 65+ PNEUMOCOCCAL VACCINE (4 - PPSV23 or PCV20)] Future Scheduled 2022-01-20 INFLUENZA VACCINE Method [facility] Test 06:12:34 [code = INFLUENZA VACCINE] Future Scheduled 2022-01-16 SHINGLES VACCINES (1 Met [facility] Test 12:09:25 of 2) [code = SHINGLES VACCINES (1 of 2)] Future Scheduled 2022-01-16 Screening for [facility] Test 12:09:25 malignant neoplasm of cervix (procedure) [code = [id number]] Future Scheduled 2022-01-16 BREAST CANCER [facility] Test 12:09:25 SCREENING [code = BREAST CANCER SCREENING] Future Scheduled 2022-01-16 COLONOSCOPY SCREENING [facility] Test 12:09:25 [code = COLONOSCOPY SCREENING] Future Scheduled 2022-01-16 HEPATITIS B VACCINES Met [facility] Test 12:09:25 (1 of 3 - Risk 3-dose series) [code = HEPATITIS B VACCINES (1 of 3 - Risk 3-dose series)] Future Scheduled 2022-01-16 COVID-19 VACCINE (3 - [facility] Test 12:09:25 Booster for Pfizer series) [code = COVID-19 VACCINE (3 - Booster for Pfizer series)] Future Scheduled 2022-01-16 65+ PNEUMOCOCCAL [facility] Test 12:09:25 VACCINE (4 - PPSV23 or PCV20) [code = 65+ PNEUMOCOCCAL VACCINE (4 - PPSV23 or PCV20)] Future Scheduled 2022-01-16 INFLUENZA VACCINE Method [facility] Test 12:09:25 [code = INFLUENZA VACCINE] Future Scheduled 2022-01-14 SHINGLES VACCINES (1 Met [facility] Test 04:11:46 of 2) [code = SHINGLES VACCINES (1 of 2)] Future Scheduled 2022-01-14 Screening for [facility] Test 04:11:46 malignant neoplasm of cervix (procedure) [code = [id number]] Future Scheduled 2022-01-14 BREAST CANCER [facility] Test 04:11:46 SCREENING [code = BREAST CANCER SCREENING] Future Scheduled 2022-01-14 COLONOSCOPY SCREENING [facility] Test 04:11:46 [code = COLONOSCOPY SCREENING] Future Scheduled 2022-01-14 HEPATITIS B VACCINES Met [facility] Test 04:11:46 (1 of 3 - Risk 3-dose series) [code = HEPATITIS B VACCINES (1 of 3 - Risk 3-dose series)] Future Scheduled 2022-01-14 COVID-19 VACCINE (3 - [facility] Test 04:11:46 Booster for Pfizer series) [code = COVID-19 VACCINE (3 - Booster for Pfizer series)] Future Scheduled 2022-01-14 65+ PNEUMOCOCCAL [facility] Test 04:11:46 VACCINE (4 - PPSV23 or PCV20) [code = 65+ PNEUMOCOCCAL VACCINE (4 - PPSV23 or PCV20)] Future Scheduled 2022-01-14 INFLUENZA VACCINE Method [facility] Test 04:11:46 [code = INFLUENZA VACCINE] Future Scheduled 2021-08-26 Screening for [facility] Test 13:02:23 malignant neoplasm of cervix (procedure) [code = [id number]] Future Scheduled 2021-08-26 BREAST CANCER [facility] Test 13:02:23 SCREENING [code = BREAST CANCER SCREENING] Future Scheduled 2021-08-26 COLONOSCOPY SCREENING [facility] Test 13:02:23 [code = COLONOSCOPY SCREENING] Future Scheduled 2021-08-26 Screening for [facility] Test 13:02:23 malignant neoplasm of lung (procedure) [code = 158157397] Future Scheduled 2021-08-26 SHINGLES [facility]ACCINES (#[facility]) [facility] 13:02:23 [code = SHINGLES VACCINES (#1)] Future Scheduled 2021-08-26 COVID-19 VACCINE (3 - [facility] Test 13:02:23 Pfizer risk 4-dose series) [...] Clinicians Facility Department ID 2022-02-18 Outpatient W [facility] [id number] [place] 14:30:[address] [place] [address] 2021-07-14 Outpatient SADIKOVIC, [facility] [id number] [place] 09:33:51 [facility] 2021-06-02 Outpatient HEMATPOUR, [facility] [id number] [place] 13:58:59 [facility] 2021-04-28 Outpatient HEMATPOUR, [facility] [id number] [place] 11:21:22 [facility] 2021-03-20 Emergency [facility] [id number] Univers 16:07:40 [facility] 2020-12-12 Outpatient HEMATPOUR, [facility] [id number] [place] 08:16:46 [facility] 2020-10-31 Outpatient HEMATPOUR, [facility] [id number] [place] 09:44:50 [facility] 2020-09-30 Outpatient HEMATPOUR, [facility] [id number] [place] 13:16:03 [facility] 2023-02-07 2023-02-07 Outpatient R EAST, [facility] [id number] Univers 09:00:00 09:00:00 SANTIAGO [facility] 2023-01-27 2023-01-27 Emergency X Bill COLES [facility] ERT [id number] Univers 10:47:00 18:59:00 ity [facility] 2023-01-27 2023-01-27 Emergency Bill Coles [facility] 1.2.840.114 [id number] Univers 10:47:00 18:59:00 Kiersten BULLOCK 350.1.13.10 i ty of [place] [id number] [facility] [address] [place] 2023-01-17 2023-01-[address] [facility] UNIVERSIT 1.2.120.234 [id number] Univers 00:00:00 00:00:00 [facility] 350.1.13.10 i ty of [place] [id number] [place] [address] [place] 2022-11-26 2022-11-26 Outpatient R [facility] [id number] Univers 08:30:00 08[facility]30[facility]22-[facility]-15 2022-11-15 Outpatient R [facility] [id number] Univers 08:30:00 08:30:00 [facility] 2022-11-02 2022-11-02 Outpatient R [facility] [id number] Univers 08:30:00 08:30:00 [facility] 2022-10-27 2022-10-27 [facility] 1.2.840.114 [id number] Univers 00:00:00 00:00:00 [facility] 350.1.13.10 i [place] [id number] [address] 2022-10-06 2022-10-06 Outpatient R [facility] [id number] Univers 09:30:00 09:30:00 [facility] 2022-09-26 2022-09-26 [facility] 1.2.230.334 [id number] Univers 00:00:00 00:00:00 [facility] 350.1.13.10 i [place] [id number] [address] 2022-09-03 2022-09-03 Outpatient R [facility] [id number] Univers 11:00:00 11:00:00 SANTIAGO ity [facility] 2022-08-24 2022-08-24 Refill East, 1.2.840.8 [id number] Univers 00:00:00 00:00:00 [place] 55507.1.1 ity of 3.104.2.7 [place] .3.906736 Medica l .8 Branch 2022-05-20 2022-05-20 Telephone [facility] 1.2.840.114 [id number] Univers 00:00:00 00:00:00 [facility] 350.1.13.10 i [place] [id number] [address] 2022-05-10 2022-05-10 Emergency X BYRON [facility] ERT [id number] Univers 10:30:00 16:31:00 [facility] 2022-05-10 2022-05-10 Emergency Byron, TRAUMA 1.2.840.114 [id number] Univers 10:30:00 16:31:00 [facility] 350.1.13.10 [place] [id number] [facility] [address] [place] 2022-05-10 2022-05-10 Telephone [facility] 1.2.840.114 [id number] Univers 00:00:00 00:00:00 [facility] 350.1.13.10 i [place] [id number] [address] 2022-05-08 2022-05-08 Emergency X VICK [facility] ERT [id number] Univers 16:18:00 18:42:00 [facility] 2022-05-08 2022-05-08 [facility] 1.2.840.114 [id number] Univers 16:18:00 18:42:00 Theresa BULLOCK 350.1.13.10 ity of [place] 4.2.7.2.686 [id number] [address] 2022-05-07 2022-05-07 Telephone [facility] 1.2.840.114 [id number] Univers 00:00:00 00:00:00 [facility] 350.1.13.10 i [place] [id number] [address] 2022-05-06 2022-05-06 Emergency [facility] [id number] Univers 14:13:00 18:19:00 ANETTE [facility] 2022-05-06 2022-05-06 Emergency [facility] 1.2.007.442 [id number] Univers 14:13:00 18:19:00 Anette BULLOCK 350.1.13.10 ity of [place] 4.2.7.2.686 [facility] [id number] [address] 2022-05-06 2022-05-06 Telephone [facility] 1.2.840.114 [id number] Univers 00:00:00 00:00:00 [facility] 350.1.13.10 i [place] [id number] [address] 2022-04-22 2022-04-22 Emergency [facility] ERT [id number] Univers 13:55:00 17:00:00 PAULETTE [facility] 2022-04-22 2022-04-22 Emergency [facility] 1.2.729.566 [id number] Univers 13:55:00 17:00:00 Paulette BULLOCK 350.1.13.10 i ty of [place] 4.2.7.2.686 [facility] [id number] [address] 2022-04-07 2022-04-07 Outpatient R ADRIAN, [facility] [id number] Univers 20:40:00 20:40:00 ATTENDING ity [facility] 2022-04-07 2022-04-07 Telephone Devin, 1.2.840.8 [id number] Univers 00:00:00 00:00:00 Robbi Hairston 43071.1.1 i ty of 3.104.2.7 [place] .3.260636 Medica l .8 [place] 2022-03-05 2022-03-05 Wireless Watcher [place] Cardenas 1.2.840.1 [id number] Univers 13:45:00 14:00:00 Visit [facility] 84025.1.1 ity of 3.104.2.7 [place] .3.957564 Medica l .8 [place] 2022-03-05 2022-03-05 Office JOSÉ ANTONIO Cardenas 1.2.413.563 [id number] Univers 13:00:00 13:30:00 Visit Santiago [facility] 350.1.13.10 i ty of [place] [id number] [facility] [address] [place] 2022-03-05 2022-03-05 Outpatient R [facility] [id number] Univers 13:00:00 13:00:00 [facility] 2022-02-26 2022-02-26 Outpatient [facility] [id number] Univers 08:30:00 08:30:00 [facility] 2022-02-26 2022-02-26 Outpatient R [facility] [id number] Univers 08:30:00 08:30:00 [facility] 2022-02-17 2022-02-17 Transition Stevo, 1.2.840.0 [id number] Univers 00:00:00 00:00:00 of Care Isaias Arredondo 94535.1.1 it y of 3.104.2.7 [place] .3.651312 Medica l .8 [place] 2022-02-10 2022-02-16 [facility]patient [facility] [id number] Univers 22:59:00 19:27:00 TOMY [facility] 2022-02-10 2022-02-16 Hospital Reilly Means 1.2.840.1 [id number] Univers 22:59:00 19:27:00 Encounter Ofe Shields 76080.1.1 ity of [place] 3.104.2.7 [place] .3.177686 Medica l .8 Branch 2022-02-11 2022-02-11 Telephone [place], 1.2.840.4 [id number] Univers 00:00:00 00:00:00 [place] 34611.1.1 ity of 3.104.2.7 [place] .3.759194 Medica l .8 Branch 2022-02-10 2022-02-10 Travel 1.2.840.1 1.2.838.905 [id number] Univers 00:00:00 00:00:00 11991.1.1 350.1.13.10 ity of 3.104.2.7 4.[place].7.3.698 [place] .3.545265 084.8 Medica l .8 Branch 2022-01-30 2022-01-30 Telephone East, 1.2.840.0 [id number] Univers 00:00:00 00:00:00 [place] 62352.1.1 ity of 3.104.2.7 [place] .3.721803 Medica l .8 Branch 2022-01-06 2022-01-06 Orders Doctor FERMIN 1.2.840.114 [id number] Univers 00:00:00 00:00:00 Only Unassigned, JACKELINE 350.1.13.10 ity of [place] [facility] 4.2.7.2.686 Yomi as [id number] [place] [address] Branch 2021-12-25 2021-12-25 Orders Doctor FERMIN 1.2.840.114 [id number] Univers 00:00:00 00:00:00 Only Unassigned, JACKELINE 350.1.13.10 ity of [place] [facility] 4.2.7.2.686 Yomi as [id number] [address] 2021-12-12 2021-12-13 Emergency X Bill COLES [facility] ERT [id number] Univers 23:53:00 01:52:00 ity of [facility] 2021-12-12 2021-12-13 Emergency Bill Coles [facility] 1.2.840.114 [id number] Univers 23:53:00 01:52:00 Kiersten BULLOCK 350.1.13.10 i ty of [facility] 4.2.7.2.[place] [id number] [facility] 084 Branch 2021-11-20 2021-11-20 Wireless Watcher [facility] UNIVERSIT 1.2.840.114 [id number] Univers 09:45:00 10:00:00 Visit [facility] 350.1.13.10 ity of [facility] 4.2.7.2.[place] [id number] [facility] 316 Branch 2021-11-20 2021-11-20 Office [facility] [place] [facility] 1.2.351.304 [id number] Univers 08:30:00 09:00:00 Visit [facility] 350.1.13.10 i ty of [facility] 4.2.7.2.[place] [id number] [facility] [address] [place] 2021-11-20 2021-11-20 Outpatient R [facility] [id number] Univers 08:30:00 08:30:00 [facility] 2021-11-20 2021-11-20 Outpatient R [facility] [id number] Univers 08:30:00 08:30:00 [facility] 2021-11-20 2021-11-20 Outpatient R [facility] [id number] Univers 08:30:00 08:30:00 [facility] 2021-11-20 2021-11-20 Outpatient R [facility] [id number] Univers 08:30:00 08:30:00 [facility] 2021-10-24 2021-10-24 Emergency X WALKER [facility] ERT [id number] Univers 16:27:00 22:26:00 CHARITY [facility] 2021-10-24 2021-10-24 Emergency X WALKER [facility] ERT [id number] Univers 16:27:00 22:26:00 CHARITY barbosa [facility] 2021-10-24 2021-10-24 Emergency Reilly Means [facility] 1.2.840. 114 [id number] Univers 16:27:00 22:26:00 Charity Mcallister 350.1.13.10 ity of [facility] 4.2.7.2.686 [facility] [id number] [address] 2021-10-23 2021-10-24 [facility] [id number] Univers 20:22:00 02:57:00 [facility] 2021-10-23 2021-10-24 Emergency [facility] 1.2.487.079 [id number] Univers 20:22:00 02:57:00 [facility] 350.1.13.10 ity of [place] 4.2.7.2.686 [facility] [id number] [address] 2021-09-07 2021-09-07 Outpatient R SELF, [facility] [id number] Univers 08:00:00 08:00:00 GADIEL rodas [facility] 2021-09-07 2021-09-07 Outpatient R SELF, [facility] [id number] Univers 08:00:00 08:00:00 GADIEL rodas [facility] 2021-08-21 2021-08-21 Outpatient R [facility] [id number] Univers 10:45:00 10:45:00 SANTIAGO barbosa [facility] 2021-08-21 2021-08-21 Wireless Watcher [place] Cardenas 1.2.840.1 [id number] Univers 10:45:00 10:45:00 Visit c-Lab 55623.1.1 ity of 3.104.2.7 [place] .3.194212 Medica l .8 [place] 2021-08-21 2021-08-21 Office Ronald 1.2.840.7 [id number] Univers 08:30:00 09:00:00 Visit [place] 13949.1.1 ity of 3.104.2.7 [place] .3.632670 Medica l .8 Branch 2021-08-21 2021-08-21 Office [facility] 1.2.873.826 [id number] Univers 08:30:00 09:00:00 Visit [place] [facility] 350.1.13.10 i ty of CLINICS 4.2.7.2.686 [place] [id number] [facility] 089 Branch 2021-08-21 2021-08-21 Outpatient [facility] [id number] Univers 08:30:00 08:30:00 SANTIAGO [facility] 2021-08-21 2021-08-21 Travel 1.2.840.1 1.2.257.128 [id number] Univers 00:00:00 00:00:00 49743.1.1 350.1.13.10 ity of 3.104.2.7 4.2.7.3.698 [place] .3.879381 084.8 Medica l .8 [place] 2021-08-14 2021-08-14 Telephone East, 1.2.840.4 [id number] Univers 00:00:00 00:00:00 [place] 26597.1.1 ity of 3.104.2.7 [place] .3.576282 Medica l .8 [place] 2021-08-13 2021-08-13 Telephone East, 1.2.840.7 [id number] Univers 00:00:00 00:00:00 [place] 14122.1.1 ity of 3.104.2.7 [place] .3.747273 Medica l .8 [place] 2021-08-11 2021-08-11 Outpatient [facility] [id number] Univers 08:00:00 08:00:00 [facility] 2021-08-05 2021-08-05 Inpatient WINTER Leal [facility] [id number] [facility] 05:24:00 05:24:00 Mike 31 [facility] 2021-07-20 2021-07-20 Outpatient [facility] [id number] Univers 10:00:00 10:00:00 SANTIAGO charlie [facility] 2021-07-14 2021-07-14 Office Pankaj, UTP 6400 1.2.840.114 [id number] [place] 08:45:00 09:34:[address] 350.1.13.58 Health 9.2.7.2.686 [id number] 1 2021-07-09 2021-07-09 Telephone Maryjanepour, UTP 6400 1.2.840.114 [id number] [place] 00:00:00 00:00:[address] 350.1.13.58 Health 9.2.7.2.686 [id number] 1 2021-07-09 2021-07-09 Telephone Maryjaneporay, UTP 6400 1.2.840.114 [id number] [place] 00:00:00 00:00:[address] 350.1.13.58 Health 9.2.7.2.686 [id number] 1 2021-07-03 2021-07-03 Outpatient R EAST, [facility] [id number] Univers 08:00:00 08:00:00 SANTIAGO [facility] 2021-06-17 2021-06-17 Inpatient RAUL Lund, HCACL INTE.02 [id number] [facility] 10:56:00 14:36:[address] [place] [address] 2021-06-15 2021-06-15 Outpatient R SELF, [facility] [id number] Univers 10:15:00 11:07:21 GADIEL vogel [facility] 2021-06-15 2021-06-15 Outpatient R SELF, [facility] [id number] Univers 10:15:00 10:15:00 GADIEL rodas [facility] 2021-06-15 2021-06-15 Outpatient R SELF, [facility] [id number] Univers 10:15:00 10:15:00 GADIEL vogel [facility] 2021-06-15 2021-06-15 Orders Doctor 1.2.840.5 [id number] Univers 00:00:00 00:00:00 Only Unassigned, 01272.1.1 ity of [place] 3.104.2.7 [place] .3.933271 Medica l .8 Branch 2021-06-15 2021-06-15 Travel 1.2.840.1 1.2.961.069 [id number] Univers 00:00:00 00:00:00 83548.1.1 350.1.13.10 ity of 3.104.2.7 4.2.7.3.698 [place] .3.682504 084.8 Medica l .8 Branch 2021-06-11 2021-06-11 Refill East, UN[facility]ERSIT 1.2.476.294 [id number] Univers 00:00:00 00:00:00 [facility] 350.1.13.10 i ty of CLINICS 4.2.[place].2.[place] [id number] [facility] [address] [place] 2021-06-11 2021-06-11 Refill [facility], 1.2.840.5 [id number] Univers 00:00:00 00:00:00 [place] 22772.1.1 ity of 3.104.2.7 [place] .3.957262 Medica l .8 [place] 2021-06-05 2021-06-05 Outpatient R [facility], [facility] [id number] Univers 09:00:00 09:00:00 SANTIAGO ity of [facility] 2021-06-02 2021-06-02 Telephone [facility], UNIVERSIT 1.2.840.114 [id number] Univers 00:00:00 00:00:00 [facility] 350.1.13.10 i ty of CLINICS 4.2.[place].2.[place] [id number] [place] [address] [place] 2021-06-02 2021-06-02 Telephone East, 1.2.840.3 [id number] Univers 00:00:00 00:00:00 [place] 08211.1.1 ity of 3.104.2.7 [place] .3.121728 Medica l .8 [place] 2021-05-29 2021-05-29 Telephone East, 1.2.840.7 [id number] Univers 00:00:00 00:00:00 [place] 21635.1.1 ity of 3.104.2.7 [place] .3.959064 Medica l .8 [place] 2021-05-29 2021-05-29 Telephone Ronald, 1.2.840.0 [id number] Univers 00:00:00 00:00:00 [place] 93546.1.1 ity of 3.104.2.7 [place] .3.906490 Medica l .8 [place] 2021-05-25 2021-05-25 Outpatient R SELF, [facility] [id number] Univers 08:00:00 08:00:00 GADIEL vogel [facility] 2021-04-29 2021-04-29 Outpatient R LALA, [facility] [id number] Univers 08:00:00 08:00:00 NIKOLAI barboas [facility] 2021-04-28 2021-04-28 Telephone Ap, [facility] 6400 1.2.840.114 [id number] [place] 00:00:00 00:00:[address] 350.1.13.58 Health 9.2.7.2.686 [id number] 1 2021-04-28 2021-04-28 Telephone Jailyn, 1.2.840.6 [id number] Methodi 00:00:00 00:00:[address] 3.430.2.7 Hospit a .3.173467 l .8 2021-03-31 2021-03-31 Orders Meiariel, 1.2.840.1 [id number] 21 [id number] Methodi 00:00:00 00:00:00 Only Sarai Lieberman 47544.1.1 979 s t 3.430.2.7 Hospit a .3.494605 l .8 2021-03-30 2021-03-30 Outpatient R SELF, [facility] [id number] Univers 08:45:00 08:45:00 GADIEL rodas [facility] 2021-03-24 2021-03-24 Telephone Jailyn, 1.2.840.6 [id number] 21 [id number] Methodi 00:00:00 00:00:[address] 3.430.2.7 Hospit a .3.299428 l .8 2021-02-13 2021-02-13 Telephone Ronald, 1.2.840.6 [id number] Univers 00:00:00 00:00:00 Santiago 55552.1.1 ity of 3.104.2.7 [place] .3.188776 Medica l .8 [place] 2021-01-28 2021-01-28 Outpatient R LALA, [facility] [id number] Univers 08:45:00 09:37:00 NIKOLAI ity of [facility] 2021-01-28 2021-01-28 Travel 1.2.840.1 1.2.265.180 [id number] Univers 00:00:00 00:00:00 80651.1.1 350.1.13.10 ity of 3.104.2.[place] 4[place].3.698 [place] .3.151313 084.8 Medica l .8 [place] 2021-01-19 2021-01-19 Telephone Prabhu, 1.2.840.1 [id number] [id number] Methodi 00:00:00 00:00:[address] 3.430.2.7 Hospit a .3.663313 l .8 2021-01-04 2021-01-04 Dmitry Bass, 1.2.840.9 [id number] 696 Univers 00:00:00 00:00:00 (Out) Dagoberto H 78035.1.1 ity of 3.104.2.7 [place] .3.940460 Medica l .8 [place] 2021-01-04 2021-01-04 Dmitry Bass 1.2.840.9 [id number] 696 Univers 00:00:00 00:00:00 (Out) Dagoberto H 02198.1.1 ity of 3.104.2.7 [place] .3.802888 Medica l .8 [place] 2021-01-03 2021-01-03 Letter Shelia, 1.2.840.0 [id number] Univers 00:00:00 00:00:00 (Out) Dagoberto H 35595.1.1 ity of 3.104.2.7 [place] .3.594064 Medica l .8 [place] 2021-01-03 2021-01-03 Letter Shelia, 1.2.840.9 [id number] 790 Univers 00:00:00 00:00:00 (Out) Dagoberto H 01132.1.1 ity of 3.104.2.7 [place] .3.319971 Medica l .8 [place] 2021-01-02 2021-01-02 Outpatient R [facility] [id number] 786 Univers 13:40:00 13:40:00 ity of [facility] 2021-01-02 2021-01-02 Laboratory [place] Franks 1.2.840.0 [id number] [id number] Univers 12:14:13 12:57:34 Only Lab, [facility] [place] 14345.1.1 ity of 3.104.2.7 [place] .3.425393 Medica l .8 [place] 2021-01-02 2021-01-02 Laboratory [place] Franks 1.2.840.2 653326 [id number] [id number] Univers 12:14:13 12:57:34 Only Lab, [facility] Fam Pob I 78073.1.1 ity of 3.104.2.7 [place] .3.842476 Medica l .8 [place] 2021-01-02 2021-01-02 Travel 1.2.840.1 1.2.332.626 0480 2306 Univers 00:00:00 00:00:00 70015.1.1 350.1.13.10 ity of 3.104.2.7 4[place]7.3.698 [place] .3.731621 084.8 Medica l .8 [place] 2021-01-02 2021-01-02 Letter Doctor 1.2.840.2 [id number] 42720 948 Univers 00:00:00 00:00:00 (Out) Unassigned, 47993.1.1 ity of [place] 3.104.2.7 [place] .3.963967 Medica l .8 [place] 2021-01-02 2021-01-02 Letter Doctor 1.2.840.2 [id number] 97393 946 Univers 00:00:00 00:00:00 (Out) Unassigned, 89504.1.1 ity of [place] 3.104.2.7 [place] .3.143233 Medica l .8 [place] 2021-01-02 2021-01-02 Travel 1.2.840.1 1.2.122.422 0397 2306 Univers 00:00:00 00:00:00 96988.1.1 350.1.13.10 ity of 3.104.2.7 4.[place].7.3.698 [place] .3.288634 084.8 Medica l .8 [place] 2021-01-02 2021-01-02 Letter Doctor 1.2.840.8 [id number] 19263 948 Univers 00:00:00 00:00:00 (Out) Unassigned, 37546.1.1 ity of [place] 3.104.2.7 [place] .3.264770 Medica l .8 [place] 2021-01-02 2021-01-02 Letter Doctor 1.2.840.2 [id number] 96783 946 Univers 00:00:00 00:00:00 (Out) Unassigned, 80380.1.1 ity of [place] 3.104.2.7 [place] .3.094529 Medica l .8 Branch 2020-12-22 2020-12-22 Telephone Beltran, 1.2.840.1 [id number] 862 54277 Univers 00:00:00 00:00:00 Robbi Hairston 21810.1.1 i ty of 3.104.2.7 [place] .3.064536 Medica l .8 Branch 2020-12-22 2020-12-22 Telephone Beltran, 1.2.840.4 [id number] 862 05814 Univers 00:00:00 00:00:00 Robbi R 49559.1.1 i ty of 3.104.2.7 [place] .3.584956 Medica l .8 Branch 2020-12-12 2020-12-12 Office Hematpour, UTP 6400 1.2.840.114 12 [id number] [place] 07:42:02 08:18:[address] 350.1.13.58 Health 9.2.7.2.686 [id number] 1 2020-12-12 2020-12-12 Office Hematpour, UTP 6400 1.2.840.114 12 [id number] 07:42:02 08:18:[address] 350.1.13.58 9.2.7.2.686 576.7142006 1 2020-12-09 2020-12-09 Telephone Carol Ann, 1.2.840.1 [id number] Methodi 00:00:00 00:00:00 Sarai M. 01506.1.1 316 s t 3.430.2.7 Hospit a .3.440969 l .8 2020-12-08 2020-12-[address] [facility], 1.2.840.1 [id number] 2100 756333 Methodi 12:35:54 23:59:00 Encounter Ray 45261.1.[address] 3.430.2.7 Hospit a .3.377716 l .8 2020-12-08 2020-12-08 [facility], 1.2.840.1 [id number] 74173 96116 Methodi 17:25:00 17:30:[address] 3.430.2.7 Hospit a .3.526238 l .8 2020-12-08 2020-12-08 [facility], 1.2.840.1 [id number] 32553 65559 Methodi 10:30:00 11:39:56 Visit Ray 41405.1.[address] 3.430.2.7 Hospit a .3.290897 l .8 2020-12-08 2020-12-08 Travel 1.2.840.1 1.2.123.509 4123 489526 Methodi 00:00:00 00:00:[address] 3.430.2.7 0.2.7.3.698 spita .3.676747 084.8 l .8 2020-12-02 2020-12-02 Wireless Watcher [facility] UNIVERSIT 1.2.840.114 8 [id number] 10:20:06 10:36:19 Visit [facility] 350.1.13.10 CLINICS 4.2.7.2.686 [id number] 316 2020-12-02 2020-12-02 Wireless Watcher Santiago Cardenas 1.2.840.1 [id number] [facility] 10:20:06 10:36:19 Visit [facility] 23708.1.1 ity of 3.104.2.7 [place] .3.602878 Medica l .8 [place] 2020-12-02 2020-12-02 Wireless Watcher Santiago Cardenas 1.2.840.1 [id number] [facility] 10:20:06 10:36:19 Visit [facility] 79673.1.1 ity of 3.104.2.7 [place] .3.163712 Medica l .8 [place] 2020-12-02 2020-12-02 Office Ronald 1.2.840.2 [id number] 528 [facility] 08:31:37 09:01:37 Visit Santiago 85841.1.1 ity of 3.104.2.7 [place] .3.827323 Medica l .8 [place] 2020-12-02 2020-12-02 [facility] [id number] 304 Univers 09:00:00 09:00:00 SANTIAGO barbosa of [facility] 2020-11-25 2020-11-25 [facility] 1.2.840.114 [id number] 11:06:30 11:58:14 Visit Robbi Hairston 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 350.1.13.10 REGIONAL 4.2.7.2.686 MATERNAL [phone] & CHILD 107 [facility] 2020-11-25 2020-11-25 Office Devin, 1.2.840.3 [id number] 19822 865 Univers 11:06:30 11:58:14 Visit Robbi Hairston 24533.1.1 i ty of 3.104.2.7 [place] .3.205474 Medica l .8 [place] 2020-11-25 2020-11-25 Office Devin, 1.2.840.9 [id number] 36572 865 Univers 11:06:30 11:58:14 Visit Robbi Hairston 77930.1.1 i ty of 3.104.2.7 [place] .3.704525 Medica l .8 [place] 2020-11-25 2020-11-25 Outpatient R [facility] [id number] Univers 11:00:00 11:00:00 ity of [facility] 2020-11-25 2020-11-25 [facility] 1.2.944.436 1987 4592 00:00:00 00:00:00 [facility] 350.1.13.10 [facility] 4.2.7.2.686 [id number] 9 2020-11-25 2020-11-25 [facility] 1.2.718.563 6053 0821 00:00:00 00:00:00 Amarilisjolie Hairston [employer] 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 350.1.13.10 [facility] 4.2.7.2.686 MATERNAL [phone] & CHILD 107 [facility] 2020-11-25 2020-11-25 Telephone Devin, 1.2.840.3 [id number] 855 33812 Univers 00:00:00 00:00:00 Robbi Hairston 67096.1.1 i ty of 3.104.2.7 [place] .3.576672 Medica l .8 [place] 2020-11-25 2020-11-25 Refill Ronald, 1.2.840.8 [id number] 68201 592 Univers 00:00:00 00:00:00 Santiago 00666.1.1 ity of 3.104.2.7 [place] .3.476851 Medica l .8 Branch 2020-11-25 2020-11-25 Travel 1.2.840.1 1.2.086.124 7298 0247 Univers 00:00:00 00:00:00 99271.1.1 350.1.13.10 ity of 3.104.2.7 4.2.7.3.698 [place] .3.385431 084.8 Medica l .8 [place] 2020-11-25 2020-11-25 Orders Doctor 1.2.840.9 [id number] 064 Univers 00:00:00 00:00:00 Only Unassigned, 46504.1.1 ity of [place] 3.104.2.7 [place] .3.701487 Medica l .8 [place] 2020-11-25 2020-11-25 Telephone Beltran, 1.2.840.7 [id number] 855 20314 Univers 00:00:00 00:00:00 Robbi Hairston 14705.1.1 i ty of 3.104.2.7 [place] .3.147207 Medica l .8 [place] 2020-11-25 2020-11-25 Refill East, 1.2.840.6 [id number] 58830 592 Univers 00:00:00 00:00:00 Santiago 48824.1.1 ity of 3.104.2.7 [place] .3.123763 Medica l .8 [place] 2020-11-25 2020-11-25 Travel 1.2.840.1 1.2.312.929 1587 0247 Univers 00:00:00 00:00:00 62305.1.1 350.1.13.10 ity of 3.104.2.7 4.2.7.3.698 [place] .3.171434 084.8 Medica l .8 [place] 2020-11-25 2020-11-25 Orders Doctor 1.2.840.3 [id number] 08683 064 Univers 00:00:00 00:00:00 Only Unassigned, 60826.1.1 ity of [place] 3.104.2.7 [place] .3.476701 Medica l .8 [place] 2020-11-14 2020-11-14 Abstract Clark, 1.2.840.1 [id number] 09126 95496 Methodi 00:00:00 00:00:[address] 3.430.2.7 Hospit a .3.264873 l .8 2020-11-14 2020-11-14 Telephone Clark, 1.2.840.1 [id number] 2100 495671 Methodi 00:00:00 00:00:[address] 3.430.2.7 Hospit a .3.087961 l .8 2020-11-12 2020-11-12 [facility] [id number] 323 Univers 08:30:00 08:30:00 SANTIAGO barbosa [facility] 2020-11-07 2020-11-07 Telephone Diana Agustinaantonina CHU 6400 1.2.840.11 4 [id number] [place] 00:00:00 00:00:[address] 350.1.13.58 Health 9.2.7.2.686 [id number] 1 2020-11-07 2020-11-07 Telephone Diana UTP 6400 1.2.840.114 124 [id number] 00:00:00 00:00:[address] 350.1.13.58 9.2.7.2.686 [id number] 1 2020-10-31 2020-10-31 Office HematpourKIMBERLEY 6400 1.2.840.114 12 [id number] [place] 07:54:00 09:45:17 [address]a [address] 350.1.13.58 Health 9.2.7.2.686 [id number] 1 2020-10-30 2020-10-30 Abstract Rody Maguire UTP 6400 1.2.840.1 14 [id number] [place] 00:00:00 00:00:[address] 350.1.13.58 Health 9.2.7.2.686 [id number] 1 2020-10-29 2020-10-29 Refill East, 1.2.840.0 [id number] 76557 400 Univers 00:00:00 00:00:00 Santiago 84994.1.1 ity of 3.104.2.7 [place] .3.674137 Medica l .8 Branch 2020-10-29 2020-10-29 Refill East, 1.2.840.4 [id number] 88668 400 Univers 00:00:00 00:00:00 Santiago 87211.1.1 ity of 3.104.2.7 [place] .3.045843 Medica l .8 Branch 2020-10-27 2020-10-27 Telephone Jailyn, 1.2.840.6 [id number] 21 [id number] Methodi 00:00:00 00:00:[address] 3.430.2.7 Hospit a .3.408780 l .8 2020-10-24 2020-10-24 Telephone Clark, 1.2.840.1 [id number] 2100 198791 Methodi 00:00:00 00:00:[address] 3.430.2.7 Hospit a .3.254411 l .8 2020-10-22 2020-10-22 Outpatient R SELF, [facility] [id number] Univers 13:00:00 13:00:00 GADIEL rodas [facility] 2020-10-22 2020-10-22 Travel 1.2.840.1 1.2.212.156 3544 3839 Univers 00:00:00 00:00:00 04304.1.1 350.1.13.10 ity of 3.104.2.7 4.[place].7.3.698 [place] .3.140845 084.8 Medica l .8 Branch 2020-10-22 2020-10-22 Travel 1.2.840.1 1.2.173.594 4729 3839 Univers 00:00:00 00:00:00 32403.1.1 350.1.13.10 ity of 3.104.2.7 4.2.7.3.698 [place] .3.647313 084.8 Medica l .8 Branch 2020-10-13 2020-10-13 Outpatient R RODO, [facility] [id number] Univers 08:45:00 08:45:00 GADIEL rodas [facility] 2020-10-06 2020-10-12 Telemedici [facility], 1.2.840.1 [id number] 21 [id number] Methodi 15:30:00 00:08:46 ne Ray 39310.1.[address] 3.430.2.7 Hospit a .3.536690 l .8 2020-09-30 2020-09-30 [facility], 1.2.840.9 [id number] Methodi 00:00:00 00:00:[address] 3.430.2.7 Hospit a .3.927425 l .8 2020-09-21 2020-09-21 [facility] 1.2.840.1 1.2.046.287 2708 258451 Methodi 00:00:00 00:00:[address] 3.430.2.7 0.2.7.3.698 Ho spita .3.718660 084.8 l .8 2020-09-06 2020-09-06 [facility] 1.2.840.1 [id number] 16655 58765 Methodi 17:42:30 23:59:[address] 3.430.2.7 Hospit a .3.793077 l .8 2020-09-06 2020-09-[address] [facility], 1.2.840.1 [id number] 2099 558453 Methodi 16:50:00 17:41:00 Encounter Ray 53584.1.[address] 3.430.2.7 Hospit a .3.773953 l .8 2020-09-05 2020-09-[address] [facility], 1.2.840.1 [id number] 2099 194561 Methodi 09:17:00 19:45:00 Encounter Ray [address]67.1.[address] 3.430.2.7 Hospit a .3.010958 l .8 2020-09-05 2020-09-05 Surgery Chihara, 1.2.840.1 [id number] 11547 24733 Methodi 11:30:00 13:15:[address] 3.430.2.7 Hospit a .3.483850 l .8 2020-09-05 2020-09-05 Anesthesia Remigio, 1.2.840.1 [id number] 107 [id number] Methodi 11:27:00 12:20:00 Event Johnathanthi 25050.1.1 243 s t V. 3.430.2.7 Hospit a .3.488008 l .8 2020-09-05 2020-09-05 Travel 1.2.840.1 1.2.389.546 9034 232787 Methodi 00:00:00 00:00:[address] 3.430.2.7 0.2.7.3.698 Ho spita .3.475134 084.8 l .8 2020-09-04 2020-09-04 Telephone Meisenbach, 1.2.840.1 [id number] Methodi 00:00:00 00:00:00 Sarai M. 05802.1.1 762 s t 3.430.2.7 Hospit a .3.098542 l .8 2020-09-02 2020-09-02 Telephone Meisenbach, 1.2.840.8 [id number] Methodi 00:00:00 00:00:00 Sarai Corbin. 93088.1.1 344 s t 3.430.2.7 Hospit a .3.167846 l .8 2020-08-29 2020-08-30 Bedded Critical access hospital [id number] [facility] 10:20:00 14:10:00 Outpatient [facility] 00 [facility] 2020-08-29 2020-08-30 Outpatient HEMATPOUR, [facility] CAR 7500 [facility] 05:20:00 09:10:00 BEVERLY 2020-08-06 2020-08-06 Office [place], 1.2.840.5 [id number] Univers 08:03:23 09:17:49 Visit Santiago 60088.1.1 ity of 3.104.2.7 [place] .3.129748 Medica l .8 [place] 2020-08-06 2020-08-06 Outpatient R EAST, [facility] [id number] Univers 08:30:00 08:30:00 SANTIAGO ity of [facility] 2020-07-14 2020-07-14 Outpatient R SELF, [facility] [id number] Univers 09:30:00 09:30:00 GADIEL barbosa o [facility] 2020-07-14 2020-07-14 Travel 1.2.840.1 1.2.086.495 8989 2575 Univers 00:00:00 00:00:00 18728.1.1 350.1.13.10 ity of 3.104.2.7 4.[place].7.3.698 [place] .3.497584 084.8 Medica l .8 [place] 2020-07-14 2020-07-14 Orders Doctor 1.2.840.9 [id number] Univers 00:00:00 00:00:00 Only Unassigned, 79479.1.1 ity of [place] 3.104.2.7 [place] .3.715779 Medica l .8 [place] 2020-06-16 2020-06-16 Outpatient R SELF, [facility] [id number] Univers 08:00:00 08:00:00 GADIEL barbosa o f [facility] 2020-06-06 2020-06-06 Telephone Ronald, 1.2.840.2 [id number] 809 [id number] Univers 00:00:00 00:00:00 Santiago 03703.1.1 ity of 3.104.2.7 [place] .3.474971 Medica l .8 [place] 2020-06-04 2020-06-04 Wireless Watcher Santaigo Cardenas 1.2.840.1 [id number] Univers 09:31:58 09:40:12 Visit [facility] 28864.1.1 ity of 3.104.2.7 [place] .3.066278 Medica l .8 [place] 2020-06-04 2020-06-04 Office East, [facility] [place] [facility] 1.2.377.156 4944 9729 Univers 08:13:41 09:28:25 Visit Santiago [facility] 350.1.13.10 i ty of CLINICS 4.2.7.2.686 [place] 531.6949825 [facility] porfirio 089 Branch 2020-06-04 2020-06-04 Outpatient R [facility] [id number] Univers 08:30:00 08:30:00 SANTIAGO ity of [facility] 2020-06-04 2020-06-04 Orders Doctor 1.2.840.6 [id number] 079 Univers 00:00:00 00:00:00 Only Unassigned, 61766.1.1 ity of [place] 3.104.2.7 [place] .3.006659 Medica l .8 [place] 2020-05-19 2020-05-19 Telephone East, 1.2.840.9 [id number] 804 08277 Univers 00:00:00 00:00:00 Santiago 02440.1.1 ity of 3.104.2.7 [place] .3.371835 Medica l .8 [place] 2020-04-24 2020-04-24 Telephone East, 1.2.840.8 [id number] 799 88944 Univers 00:00:00 00:00:00 Santiago 06658.1.1 ity of 3.104.2.7 [place] .3.491082 Medica l .8 [place] 2020-04-14 2020-04-14 Outpatient R [facility] [id number] Univers 09:00:00 09:00:00 SANTIAGO ity of [facility] 2020-04-14 2020-04-14 Telephone East, 1.2.840.8 [id number] 797 60358 Univers 00:00:00 00:00:00 Santiago 85413.1.1 ity of 3.104.2.7 [place] .3.806031 Medica l .8 Branch 2020-03-31 2020-03-31 Outpatient R EAST, [facility] [id number] Univers 08:30:00 08:30:00 SANTIAGO ity of [facility] 2020-03-03 2020-03-03 Outpatient R SELF, [facility] [id number] Univers 08:00:00 08:00:00 GADIEL barbosa o f [facility] 2020-03-03 2020-03-03 Outpatient R SELF, [facility] [id number] Univers 08:00:00 08:00:00 GADIEL barbosa o f [facility] 2020-03-03 2020-03-03 Travel 1.2.840.1 1.2.214.811 4507 5480 Univers 00:00:00 00:00:00 87923.1.1 350.1.13.10 ity of 3.104.2.7 4.[place].7.3.698 [place] .3.308489 084.8 Medica l .8 [place] 2020-02-06 2020-02-06 Telephone East, 1.2.840.6 [id number] 781 [id number] Univers 00:00:00 00:00:00 Santiago 63783.1.1 ity of 3.104.2.7 [place] .3.968788 Medica l .8 [place] 2020-01-26 2020-01-26 Emergency Caridad, 1.2.840.5 [id number] 779 40021 Univers 10:03:00 13:05:00 Cynise 73891.1.1 ity of 3.104.2.7 [place] .3.596250 Medica l .8 Branch 2020-01-26 2020-01-26 Travel 1.2.840.1 1.2.284.405 5336 0120 Univers 00:00:00 00:00:00 63738.1.1 350.1.13.10 ity of 3.104.2.7 4.[place].7.3.698 [place] .3.015125 084.8 Medica l .8 [place] 2020-01-25 2020-01-25 Outpatient R EAST, [facility] [id number] Univers 08:30:00 08:30:00 SANTIAGO ity of [facility] 2020-01-25 2020-01-25 Telemedici [place], 1.2.840.7 [id number] Univers 07:36:49 08:06:49 ne Visit Santiago 60485.1.1 ity of 3.104.2.7 [place] .3.550618 Medica l .8 [place] 2020-01-16 2020-01-16 Outpatient R EAST, [facility] [id number] Univers 08:00:00 08:00:00 SANTIAGO ity [facility] 2020-01-16 2020-01-16 Telephone East, 1.2.840.6 [id number] Univers 00:00:00 00:00:00 Santiago 95257.1.1 ity of 3.104.2.7 [place] .3.640921 Medica l .8 [place] 2020-01-14 2020-01-14 Outpatient R SELF, [facility] [id number] Univers 08:00:00 08:00:00 GADIEL rodas [facility] 2019-12-31 2019-12-31 Outpatient R SELF, [facility] [id number] Univers 08:45:00 08:45:00 GADIEL rodas [facility] 2019-10-17 2019-10-17 Outpatient R EAST, [facility] [id number] Univers 08:30:00 08:30:00 SANTIAGO ity [facility] 2019-10-12 2019-10-12 Outpatient R EAST, [facility] [id number] Univers 13:00:00 13:00:00 SANTIAGO ity [facility] 2019-10-12 2019-10-12 Telemedici [place], 1.2.840.9 [id number] Univers 07:38:30 08:08:30 ne Visit Santiago 94182.1.1 ity of 3.104.2.7 [place] .3.408567 Medica l .8 [place] 2019-10-08 2019-10-08 Outpatient R SELF, [facility] [id number] Univers 10:15:00 10:15:00 GADIEL rodas [facility] 2019-10-03 2019-10-03 Case Assman, 1.2.840.9 [id number] Univers 00:00:00 00:00:00 Management Michael Corbin 32683.1.1 i ty of 3.104.2.7 [place] .3.632570 Medica l .8 [place] 2019-09-27 2019-09-27 Telephone East, 1.2.840.2 [id number] 755 [id number] Univers 00:00:00 00:00:00 Santiago 65923.1.1 ity of 3.104.2.7 [place] .3.926442 Medica l .8 [place] 2019-09-04 2019-09-04 Refill East, 1.2.840.7 [id number] Univers 00:00:00 00:00:00 Santiago 94052.1.1 ity of 3.104.2.7 [place] .3.730850 Medica l .8 [place] 2019-07-24 2019-07-24 Outpatient R [facility] [id number] Univers 08:30:00 08:30:00 SANTIAGO ity [facility] 2019-07-17 2019-07-17 Outpatient R [facility] [id number] Univers 10:00:00 10:00:00 SANTIAGO ity [facility] 2019-06-15 2019-06-15 Telephone East, 1.2.840.2 [id number] [id number] Univers 00:00:00 00:00:00 Santiago 19098.1.1 ity of 3.104.2.7 [place] .3.767319 Medica l .8 [place] 2019-06-13 2019-06-13 Telephone Team, [facility] 1.2.840.1 [id number] Univers 00:00:00 00:00:00 Health 28607.1.1 ity of [place].104.2.7 [place] .3.691715 Medica l .8 [place] 2019-05-10 2019-05-10 Refill East, 1.2.840.7 [id number] Univers 00:00:00 00:00:00 Santiago 46760.1.1 ity of 3.104.2.7 [place] .3.403203 Medica l .8 [place] 2019-05-09 2019-05-09 Refill Ronald, 1.2.840.3 [id number] Univers 00:00:00 00:00:00 Santiago 46409.1.1 ity of 3.104.2.7 [place] .3.315384 Medica l .8 [place] 2019-04-30 2019-04-30 Outpatient R SELF, [facility] [id number] Univers 10:15:00 10:33:05 GADIEL maciely o f [facility] 2019-04-18 2019-04-18 Wireless Watcher [place] Cardenas 1.2.840.1 [id number] Univers 10:00:39 10:44:31 Visit [facility] 27239.1.1 ity of 3.104.2.7 [place] .3.818446 Medica l .8 [place] 2019-04-18 2019-04-18 Outpatient R RONALD, [facility] [id number] Univers 10:00:00 10:44:31 SANTIAGO ity of [facility] 2019-04-18 2019-04-18 Office Ronald, 1.2.840.4 [id number] 005 Univers 08:27:44 09:53:27 Visit Santiago 30402.1.1 ity of 3.104.2.7 [place] .3.833108 Medica l .[address] [place] [address] 2019-04-18 2019-04-18 Orders Doctor 1.2.840.8 [id number] Univers 00:00:00 00:00:00 Only Unassigned, 84126.1.1 ity of [place] 3.104.2.7 [place] .3.907284 Medica l .8 [place] 2019-04-11 2019-04-11 Refill East, 1.2.840.6 [id number] Univers 00:00:00 00:00:00 [place] 70192.1.1 ity of 3.104.2.7 [place] .3.861905 Medica l .8 [place] 2019-04-09 2019-04-09 Refill Ronald, 1.2.840.8 [id number] Univers 00:00:00 00:00:00 [place] 26616.1.1 ity of 3.104.2.7 [place] .3.269733 Medica l .8 Branch 2019-04-03 2019-04-03 Telephone Team, [facility] 1.2.840.0 [id number] Univers 00:00:00 00:00:00 Health 10052.1.1 ity of [place]104.2.7 [place] .3.017155 Medica l .8 Branch 2019-03-27 2019-03-27 Telephone Self, 1.2.840.1 [id number] Univers 00:00:00 00:00:00 Gadiel 76508.1.1 ity of 3.104.2.7 [place] .3.261395 Medica l .8 Branch 2019-01-17 2019-01-17 Office Ronald, 1.2.840.8 [id number] Univers 07:37:21 10:32:51 Visit Santiago 98737.1.1 ity of 3.104.2.7 [place] .3.967252 Medica l .8 Branch 2019-01-04 2019-01-12 Office Eveline Hansen 1.2.840.7 [id number] Univers 11:19:32 11:08:05 Visit Mariela 95086.1.1 ity of 3.104.2.7 [place] .3.470883 Medica l .8 Branch 2019-01-10 2019-01-10 Telephone Stanislav, 1.2.840.3 [id number] Univers 00:00:00 00:00:00 Eladio Storm 73991.1.1 ity of 3.104.2.7 [place] .3.899590 Medica l .8 Branch 2018-12-18 2018-12-18 Office Geraldine, 1.2.840.6 [id number] Univers 08:48:45 09:13:43 Visit Leyda 82909.1.1 it y of 3.104.2.7 [place] .3.317444 Medica l .8 Branch 2018-10-30 2018-10-30 Telephone Ronald, 1.2.840.1 [id number] Univers 00:00:00 00:00:00 [place] 43201.1.1 ity of 3.104.2.7 [place] .3.755648 Medica l .8 Branch 2018-10-23 2018-10-23 Orders Doctor 1.2.840.1 [id number] Univers 00:00:00 00:00:00 Only Unassigned, 48107.1.1 ity of [place] 3.104.2.7 [place] .3.101740 Medica l .8 Branch 2018-10-23 2018-10-23 Nurse Selvin, 1.2.840.7 [id number] Univers 00:00:00 00:00:00 Triage Stefanie 49082.1.1 ity of 3.104.2.7 [place] .3.478823 Medica l .8 Branch 2018-10-23 2018-10-23 Telephone Self, 1.2.840.3 [id number] Univers 00:00:00 00:00:00 Gadiel 82368.1.1 ity of 3.104.2.7 [place] .3.639436 Medica l .8 [place] 2018-10-20 2018-10-20 Telephone Self, 1.2.840.4 [id number] Univers 00:00:00 00:00:00 Gadiel 35193.1.1 ity of 3.104.2.7 [place] .3.521820 Medica l .8 [place] Results Test Description Test Time Test Comments [...] g/dL 31.6-35.1 L RDW-SD (test code = 71909-3) 50.1 fL 39.0-49.9 H RDW-CV (test code = 788-0) 15.7 % 12.0-15.5 H PLT (test code = 777-3) 112 See_Comment L [Au tomated message] The system which [employer] nerated this result transmit arpit reference range: 166 - 35 8 10*3/?L. The reference range was not used to interpret th is result as normal/abnormal . MPV (test code = 25659-9) 9.7 fL 9.5-12.9 NRBC/100 WBC (test code = 0.0 See_Comment [ Automated message] The 7830391676) system which Sum[place] nerated this result transmit arpit reference range: 0.0 - 10 .0 /100 WBCs. The reference r abbey was not used to interpr et this result as normal/abnor mal. NRBC x10^3 (test code = See_Comment [Au tomated message] The 0191617965) system which [place] nerated this result transmit arpit reference range: 10*3/?L. The reference range was not u sed to interpret this result as normal/abnormal . GRAN MAT (NEUT) % (test code 72.1 % = 770-8) IMM GRAN % (test code = 0.20 % 9767566491) LYMPH % (test code = 736-9) 16.1 % MONO % (test code = 5905-5) 10.3 % EOS % (test code = 713-8) 1.1 % BASO % (test code = 706-2) 0.2 % GRAN MAT x10^3(ANC) (test 3.14 10*3/uL 1.88-7.09 code = 0908110519) IMM GRAN x10^3 (test code = 0.00-0.06 8800747185) LYMPH x10^3 (test code = 0.70 10*3/uL 1.32-3.29 L 731-0) MONO x10^3 (test code = 0.45 10*3/uL 0.33-0.92 742-7) EOS x10^3 (test code = 0.05 10*3/uL 0.03-0.39 711-2) BASO x10^3 (test code = 0.01-0.07 704-7) Lab Interpretation (test Abnormal code = 28656-8) [facility]. METABOLIC PANEL (25932)2022-05-06 22:42:55 Test Item Value Reference Range Interpretation Comments NA (test code = 137 mmol/L 135-145 6318007949) K (test code = 3.2 mmol/L 3.5-5.0 L 3735298872) CL (test code = 100 mmol/L 98-108 3818967638) CO2 TOTAL (test code = 23 mmol/L 23-31 0346033538) AGAP (test code = 2-16 5806536088) BUN (test code = 41 mg/dL 7-23 H 4711667465) GLUCOSE (test code = 98 mg/dL 70-110 1491113138) CREATININE (test code = 1.55 mg/dL 0.50-1.04 H 6869795894) TOTAL BILI (test code = 0.8 mg/dL 0.1-1.1 9691227673) CALCIUM (test code = 8.3 mg/dL 8.6-10.6 L 5357265071) T PROTEIN (test code = 6.9 g/dL 6.3-8.2 8455878847) ALBUMIN (test code = 3.9 g/dL 3.5-5.0 5259446838) ALK PHOS (test code = 89 U/L 34-122 0271216523) ALTv (test code = 101 U/L 5-35 H 1742-6) AST(SGOT) (test code = 203 U/L 13-40 H 0096015615) eGFR (test code = mL/min/1.73m2 6103964420) KYLE (test code = KYLE) Association of [...] tests). Lab Interpretation Abnormal (test code = 33511-7) [facility] WITH [id number] 22:33:52 Test Item Value Reference Range Interpretation Comments WBC (test code = See_Comment L [Automated 0443-2) message] The sy stem which generated this result transmitted reference range : 4.30 - 11.10 10*3/?L. The reference range was not used to interpret this result as normal/abnormal . RBC (test code = See_Comment [Automated 725-4) message] The sy stem which generated this [...] RDW-SD (test code = 46.3 fL 39.0-49.9 06951-1) RDW-CV (test code = 13.5 % 12.0-15.5 788-0) PLT (test code = See_Comment L [Automated 777-3) message] The sy stem which generated this result transmitted reference range : 166 - 358 10*3/ ?L. The reference r abbey was not used to interpret this result as normal/abnormal . MPV (test code = 9.5 fL 9.5-12.9 38988-0) NRBC/100 WBC (test See_Comment [Automat ed code = 0905493885) message] The system which generated this result transmitted reference range : 0.0 - 10.0 /100 WBCs. The refer ence range was not u sed to interpret th is result as normal/abnormal . NRBC x10^3 (test code See_Comment [Auto mated = 2061542883) message] The s ystem which generated this result transmitted reference range : 10*3/?L. The reference range was not used to interpret this result as normal/abnormal . GRAN MAT (NEUT) % 58.3 % (test code = 770-8) IMM GRAN % (test code 0.80 % = 5780652673) LYMPH % (test code = 28.1 % 736-9) MONO % (test code = 12.0 % 5905-5) EOS % (test code = 0.5 % 713-8) BASO % (test code = 0.3 % 706-2) GRAN MAT x10^3(ANC) 2.29 10*3/uL 1.88-7.09 (test code = 4104639142) IMM GRAN x10^3 (test 0.03 10*3/uL 0.00-0.06 code = 0752007757) LYMPH x10^3 (test code 1.10 10*3/uL 1.32-3.29 L = 731-0) MONO x10^3 (test code 0.47 10*3/uL 0.33-0.92 = 742-7) EOS x10^3 (test code = 0.03-0.39 L 711-2) BASO x10^3 (test code 0.01-0.07 = 704-7) Lab Interpretation Abnormal (test code = 68769-4) [facility] METABOLIC PANEL (NA, K, CL, CO2, GLUCOSE, BUN, CREATININE, CA)2022-04-22 21:43:42 Test Item Value Reference Range Interpretation Comments NA (test code = 142 mmol/L 135-145 5528694910) K (test code = 3.5 mmol/L 3.5-5.0 3793567187) CL (test code = 106 mmol/L 98-108 3275188488) CO2 TOTAL (test code = 26 mmol/L 23-31 9284547189) AGAP (test code = 2-16 9051349381) BUN (test code = 29 mg/dL 7-23 H 7201720489) GLUCOSE (test code = 84 mg/dL 70-110 7550447157) CREATININE (test code = 1.16 mg/dL 0.50-1.04 H 6439596675) CALCIUM (test code = 8.2 mg/dL 8.6-10.6 L 7083316137) eGFR (test code = mL/min/1.73m2 2113243693) KYLE (test code = KYLE) Association of [...] tests). Lab Interpretation Abnormal (test code = 12352-0) [facility] WITH [id number] 21:33:01 Test Item Value Reference Range Interpretation [...] (test code = 50.7 fL 39.0-49.9 H 27271-4) RDW-CV (test code = 14.6 % 12.0-15.5 788-0) PLT (test code = See_Comment L [Automated 777-3) message] The sy stem which generated this result transmitted reference range : 166 - 358 10*3/ ?L. The reference r abbey was not used to interpret this result as normal/abnormal . MPV (test code = 8.8 fL 9.5-12.9 L 73988-1) NRBC/100 WBC (test See_Comment [Automat ed code = 3205385452) message] The system which generated this result transmitted reference range : 0.0 - 10.0 /100 WBCs. The refer ence range was not u sed to interpret th is result as normal/abnormal . NRBC x10^3 (test code See_Comment [Auto mated = 5217684963) message] The s ystem which generated this result transmitted reference range : 10*3/?L. The reference range was not used to interpret this result as normal/abnormal . GRAN MAT (NEUT) % 70.9 % (test code = 770-8) IMM GRAN % (test code 0.50 % = 7191115958) LYMPH % (test code = 17.4 % 736-9) MONO % (test code = 9.0 % 5905-5) EOS % (test code = 1.7 % 713-8) BASO % (test code = 0.5 % 706-2) GRAN MAT x10^3(ANC) 4.60 10*3/uL 1.88-7.09 (test code = 1997761355) IMM GRAN x10^3 (test 0.03 10*3/uL 0.00-0.06 code = 1942330185) LYMPH x10^3 (test code 1.13 10*3/uL 1.32-3.29 L = 731-0) MONO x10^3 (test code 0.58 10*3/uL 0.33-0.92 = 742-7) EOS x10^3 (test code = 0.11 10*3/uL 0.03-0.39 711-2) BASO x10^3 (test code 0.03 10*3/uL 0.01-0.07 = 704-7) Lab Interpretation Abnormal (test code = 17817-7) [facility] [id number] 06:01:07 Test Item Value Reference Range Interpretation Comments Blood Culture-Aerobic No organisms No growth Previo us (test code = 96283-6) isolated prelim inary verified result was Culture [...] Culture-Anaerobic isolated preliminar y (test code = 44465-3) verifi ed result was Culture In Progress [...] CDT Lab Interpretation Normal (test code = 00754-9) [facility] CULTURE [id number] 06:01:07 Test Item Value Reference Range Interpretation Comments Blood Culture-Aerobic No organisms No growth Previo us (test code = 15091-0) isolated prelim inary verified result was Culture [...] Culture-Anaerobic isolated preliminar y (test code = 40537-5) verifi ed result was Culture In Progress [...] CDT Lab Interpretation Normal (test code = 45340-9) [facility] CULTURE [id number] 06:01:07 Test Item Value Reference Range Interpretation Comments Blood Culture-Aerobic No organisms No growth Previo us (test code = 31275-1) isolated prelim inary verified result was Culture [...] Culture-Anaerobic isolated preliminar y (test code = 70432-5) verifi ed result was Culture In Progress [...] CDT Lab Interpretation Normal (test code = 41664-4) [facility] [id number] 10:49:10 Test Item Value Reference Range Interpretation Comments NT-proBNP (test code 2660 pg/mL See_Comment H [Autom ated = 6821872133) message] The system which generated this result transmitted reference range : <=125. The reference range was not used to interpret this result as normal/abnormal . KYLE (test code = KYLE) Biotin has been reported to cause a negative bias, interpret results relative to patient's use of biotin. Lab Interpretation Abnormal (test code = 34717-1) [facility] [id number] 10:49:10 Test Item Value Reference Range Interpretation Comments NT-proBNP (test code 2660 pg/mL See_Comment H [Autom ated = 6856246604) message] The system which generated this result transmitted reference range : <=125. The reference range was not used to interpret this result as normal/abnormal . KYLE (test code = KYLE) Biotin has been reported to cause a negative bias, interpret results relative to patient's use of biotin. Lab Interpretation Abnormal (test code = 15415-9) [facility] METABOLIC PANEL (NA, K, CL, CO2, GLUCOSE, BUN, CREATININE, CA)2022-02-15 10:44:07 Test Item Value Reference Range Interpretation Comments NA (test code = 134 mmol/L 135-145 L 8508881361) K (test code = 3.2 mmol/L 3.5-5 L 0626952278) CL (test code = 98 mmol/L 98-108 0472998488) CO2 TOTAL (test code = 27 mmol/L 23-31 8438951876) AGAP (test code = 2-16 4050453750) BUN (test code = 19 mg/dL 7-23 2988761848) GLUCOSE (test code = 102 mg/dL 70-110 6179850504) CREATININE (test code = 0.95 mg/dL 0.5-1.04 3908925819) CALCIUM (test code = 8.5 mg/dL 8.6-10.6 L 2203513033) eGFR (test code = mL/min/1.73m2 0777646020) KYLE (test code = KYLE) Association of [...] tests). Lab Interpretation Abnormal (test code = 16316-9) [facility] Test Item Value Reference Range Interpretation Comments MAGNESIUM (test code = 6946241108) 1.8 mg/dL 1.7-2.4 Lab Interpretation (test code = Normal 13485-9) [facility] Test Item Value Reference Range Interpretation Comments MAGNESIUM (test code = 5221644868) 1.8 mg/dL 1.7-2.4 Lab Interpretation (test code = Normal 88049-3) [facility] (NA, K, CL, CO2, GLUCOSE, BUN, CREATININE, CA)2022-02-15 10:44:07 Test Item Value Reference Range Interpretation Comments NA (test code = 134 mmol/L 135-145 L 3778284556) K (test code = 3.2 mmol/L 3.5-5.0 L 8969984733) CL (test code = 98 mmol/L 98-108 3436526924) CO2 TOTAL (test code = 27 mmol/L 23-31 0864221394) AGAP (test code = 2-16 5318001163) BUN (test code = 19 mg/dL 7-23 8112768274) GLUCOSE (test code = 102 mg/dL 70-110 2831813752) CREATININE (test code = 0.95 mg/dL 0.50-1.04 4090818636) CALCIUM (test code = 8.5 mg/dL 8.6-10.6 L 1713687294) eGFR (test code = mL/min/1.73m2 1279528639) KYLE (test code = KYLE) Association of [...] tests). Lab Interpretation Abnormal (test code = 32053-6) [facility] WITH [id number] 10:12:06 Test Item Value Reference Range Interpretation [...] RDW-SD (test code = 47.8 fL 39-49.9 36810-6) RDW-CV (test code = 15.2 % 12-15.5 788-0) PLT (test code = See_Comment L [Automated 777-3) message] The sy stem which generated this result transmitted reference range : 166 - 358 10*3/ ?L. The reference r abbey was not used to interpret this result as normal/abnormal . MPV (test code = 8.9 fL 9.5-12.9 L 46973-8) NRBC/100 WBC (test See_Comment [Automat ed code = 5832748256) message] The system which generated this result transmitted reference range : 0.0 - 10.0 /100 WBCs. The refer ence range was not u sed to interpret th is result as normal/abnormal . NRBC x10^3 (test code See_Comment [Auto mated = 8404304790) message] The s ystem which generated this result transmitted reference range : 10*3/?L. The reference range was not used to interpret this result as normal/abnormal . GRAN MAT (NEUT) % 65.9 % (test code = 770-8) IMM GRAN % (test code 0.30 % = 0899759670) LYMPH % (test code = 21.0 % 736-9) MONO % (test code = 10.1 % 5905-5) EOS % (test code = 2.4 % 713-8) BASO % (test code = 0.3 % 706-2) GRAN MAT x10^3(ANC) 2.49 10*3/uL 1.88-7.09 (test code = 5307238645) IMM GRAN x10^3 (test 0-0.06 code = 6922381322) LYMPH x10^3 (test code 0.79 10*3/uL 1.32-3.29 L = 731-0) MONO x10^3 (test code 0.38 10*3/uL 0.33-0.92 = 742-7) EOS x10^3 (test code = 0.09 10*3/uL 0.03-0.39 711-2) BASO x10^3 (test code 0.01-0.07 = 704-7) Lab Interpretation Abnormal (test code = 08044-4) [facility] WITH [id number] 10:12:06 Test Item Value Reference Range Interpretation [...] RDW-SD (test code = 47.8 fL 39.0-49.9 39833-4) RDW-CV (test code = 15.2 % 12.0-15.5 788-0) PLT (test code = See_Comment L [Automated 777-3) message] The sy stem which generated this result transmitted reference range : 166 - 358 10*3/ ?L. The reference r abbey was not used to interpret this result as normal/abnormal . MPV (test code = 8.9 fL 9.5-12.9 L 91337-1) NRBC/100 WBC (test See_Comment [Automat ed code = 5282211721) message] The system which generated this result transmitted reference range : 0.0 - 10.0 /100 WBCs. The refer ence range was not u sed to interpret th is result as normal/abnormal . NRBC x10^3 (test code See_Comment [Auto mated = 7882812484) message] The s ystem which generated this result transmitted reference range : 10*3/?L. The reference range was not used to interpret this result as normal/abnormal . GRAN MAT (NEUT) % 65.9 % (test code = 770-8) IMM GRAN % (test code 0.30 % = 1186795755) LYMPH % (test code = 21.0 % 736-9) MONO % (test code = 10.1 % 5905-5) EOS % (test code = 2.4 % 713-8) BASO % (test code = 0.3 % 706-2) GRAN MAT x10^3(ANC) 2.49 10*3/uL 1.88-7.09 (test code = 4734409886) IMM GRAN x10^3 (test 0.00-0.06 code = 2990858742) LYMPH x10^3 (test code 0.79 10*3/uL 1.32-3.29 L = 731-0) MONO x10^3 (test code 0.38 10*3/uL 0.33-0.92 = 742-7) EOS x10^3 (test code = 0.09 10*3/uL 0.03-0.39 711-2) BASO x10^3 (test code 0.01-0.07 = 704-7) Lab Interpretation Abnormal (test code = 30995-7) [facility] WITH [id number] 11:18:28 Test Item Value Reference Range Interpretation [...] RDW-SD (test code = 49.5 fL 39-49.9 25579-4) RDW-CV (test code = 15.5 % 12-15.5 788-0) PLT (test code = See_Comment L [Automated 777-3) message] The sy stem which generated this result transmitted reference range : 166 - 358 10*3/ ?L. The reference r abbey was not used to interpret this result as normal/abnormal . MPV (test code = 11.4 fL 9.5-12.9 58630-6) IPF % (test code = 8.7 % 1.3-7.7 H Platelet count 0793856841) measured by fluorescence method. NRBC/100 WBC (test See_Comment [Automat ed code = 0869639587) message] The system which generated this result transmitted reference range : 0.0 - 10.0 /100 WBCs. The refer ence range was not u sed to interpret th is result as normal/abnormal . NRBC x10^3 (test code See_Comment [Auto mated = 0466188340) message] The s ystem which generated this result transmitted reference range : 10*3/?L. The reference range was not used to interpret this result as normal/abnormal . GRAN MAT (NEUT) % 62.0 % (test code = 770-8) IMM GRAN % (test code 0.80 % = 6192559234) LYMPH % (test code = 22.2 % 736-9) MONO % (test code = 9.6 % 5905-5) EOS % (test code = 5.1 % 713-8) BASO % (test code = 0.3 % 706-2) GRAN MAT x10^3(ANC) 2.21 10*3/uL 1.88-7.09 (test code = 8137352394) IMM GRAN x10^3 (test 0.03 10*3/uL 0-0.06 code = 6465777897) LYMPH x10^3 (test code 0.79 10*3/uL 1.32-3.29 L = 731-0) MONO x10^3 (test code 0.34 10*3/uL 0.33-0.92 = 742-7) EOS x10^3 (test code = 0.18 10*3/uL 0.03-0.39 711-2) BASO x10^3 (test code 0.01-0.07 = 704-7) POLYCHROMASIA (test 2+ See_Comment [Automa arpit code = 76149-5) message] The system which generated this result [...] . Lab Interpretation Abnormal (test code = 26316-7) [facility] METABOLIC PANEL (NA, K, CL, CO2, GLUCOSE, BUN, CREATININE, CA)2022-02-13 10:39:07 Test Item Value Reference Range Interpretation Comments NA (test code = 136 mmol/L 135-145 8080317930) K (test code = 4.1 mmol/L 3.5-5 9661027458) CL (test code = 102 mmol/L 98-108 8491246130) CO2 TOTAL (test code = 27 mmol/L 23-31 2477873132) AGAP (test code = 2-16 1018142363) BUN (test code = 22 mg/dL 7-23 3350923685) GLUCOSE (test code = 94 mg/dL 70-110 5663668084) CREATININE (test code = 0.94 mg/dL 0.5-1.04 9823838698) CALCIUM (test code = 8.1 mg/dL 8.6-10.6 L 7939925402) eGFR (test code = mL/min/1.73m2 2361539259) KYLE (test code = KYLE) Association of [...] tests). Lab Interpretation Abnormal (test code = 68940-9) [facility] 01:50:10 Test Item Value Reference Range Interpretation Comments Height (test code = in 1368696606) Weight (test code = lbs 9666293907) Systolic BP (test code mmHg = 4534774092) Diastolic BP (test code mmHg = 1981217697) Heart Rate (test code = bpm 8093617116) BSA (test code = 1.85 m2 8234849912) IVS (test code = 1.22 cm 0925664894) Interventricular Septum 1.22 cm Diastolic Thickness by 2D (test code = 0669168) LVIDD (test code = 5.00 cm 5700931154) Left Ventricular End 117.9 mL Diastolic Volume by Teichholz Method (test code = 3687891) LVPWD (test code = 1.22 cm 2195194196) PW (test code = 1.22 cm 0.6-1.1 4322857057) EF(Teich) (test code = 74.60 % 8041855616) LVIDS (test code = 2.80 cm 7493294311) Left Ventricular End 29.9 mL Systolic Volume by Teichholz Method (test code = 6634785) FS (test code = 44 % 3836770255) EF - 2D (test code = 74.60 % 18762351) LVOT diameter (test 2.16 cm code = 2085714864) LVOT area (test code = 3.70 cm2 7534425523) Ao root diam (test code 3.40 cm = 8891094513) Aortic root (test code 3.4 cm = 1053712662) Ao root annulus (test 3.4 cm code = 8224545864) LA size (test code = 3.4 cm 1704632012) TR Peak Spencer (test code 330.0 cm/s = 8789948641) Triscuspid Valve mmHg Regurgitation Peak Gradient (test code = 6738143107) PV REGURGITATION PEAK mmHg GRADIENT (test code = 9589110054) PI dec slope (test code 137.20 cm/s2 = 0301468572) LAV(MOD-sp4) (test code 102.90 mL = 6529483441) MV Peak E Spencer (test 84.1 cm/s code = 1193414447) MV Peak A Spencer (test 40.1 cm/s code = 2221169299) E/A ratio (test code = ratio 4137478906) MV valve area p 1/2 3.70 cm2 method (test code = 6937943235) MV dec slope (test code 413.00 cm/s2 = 3297126362) MV P1/2t max spencer (test 83.70 cm/s code = 3783294588) MV Prop V (test code = 41.80 cm/s 7837508078) Tapse (test code = 1.83 cm 4718774142) LVOT stroke volume 96.90 cm3 (test code = 1152318353) LVOT peak spencer (test 125.5 cm/s code = 5374651719) LVOT mn grad (test code mmHg = 9792712319) AV LVOT peak gradient mmHg (test code = 0870818620) LVOT peak VTI (test 26.4 cm code = 0917397039) LV V1 mean (test code = 78.10 cm/s 7111495636) Aortic valve mean 103.7 cm/s velocity (test code = 9604158534) Ao peak spencer (test code 165.6 cm/s = 8827768028) Ao VTI (test code = 37.2 cm 7752911609) AV area by cont VTI 2.6 cm2 (test code = 2244971839) AV area peak spencer (test 2.8 cm2 code = 3372225096) Ao max PG (test code = 11.00 mm[Hg] 1633181097) AV peak gradient (test mmHg code = 0371862820) AV valve area (test 2.60 cm2 code = 5300577241) AV mean gradient (test mmHg code = 0056760756) LA Volume Index (BP) 55.2 mL/m2 (test code = 5543456962) LA volume (BP) (test 102.1 mL code = 2543940143) LAV(MOD-sp2) (test code 86.10 mL = 0446221965) A2C EF (test code = 61.20 % 7143195472) EF(sp2-el) (test code = 61.60 % 2906152942) SV(MOD-sp2) (test code 47.10 mL = 1248049383) LV Diastolic Volume 70.7 mL (BP) (test code = 9441389574) A4C EF (test code = 53.00 % 0959264282) EF(MOD-bp) (test code = 56.70 % 6366209475) EF(sp4-el) (test code = 53.90 % 7952572774) LV Systolic Volume (BP) 30.6 mL (test code = 2643666312) SV(MOD-bp) (test code = 40.10 mL 3812943019) SV(MOD-sp4) (test code 32.40 mL = 6776159932) SV(sp4-el) (test code = 33.10 mL 8518047217) EF (test code = 9833797415) Left Ventricular Stroke 40.1 mL Volume by 2-D Biplane-MOD (test code = 9533183) LV Diastolic Volume 38.2 mL/m2 Index (BP) (test code = 7594954901) LV Systolic Volume 16.5 mL/m2 Index (BP) (test code = 8273865969) Radiology Study observation (narrative) (test code = 15080-5) KYLE (test code = KYLE) ?Left?Ventricle: Left [...] ventricular wall motion is normal. [facility] [id number] 05:45:01 Test Item Value Reference Interpretation Comments Range TROPONIN I (test See_Comment [Automated code = 1032617341) message] The system which generated this result [...] biotin. Lab Interpretation Normal (test code = 31415-3) [facility] [id number] 05:41:40 Test Item Value Reference Range Interpretation Comments NT-proBNP (test code 4250 pg/mL See_Comment H [Autom ated = 1404881288) message] The system which generated this result transmitted reference range : <=125. The reference range was not used to interpret this result as normal/abnormal . KYLE (test code = KYLE) Biotin has been reported to cause a negative bias, interpret results relative to patient's use of biotin. Lab Interpretation Abnormal (test code = 41673-7) [facility] [id number] 05:35:21 Test Item Value Reference Range Interpretation [...] seconds. Lab Interpretation Normal (test code = 69099-7) [facility] [id number] 05:35:21 Test Item Value Reference Range Interpretation [...] seconds. Lab Interpretation Normal (test code = 60631-8) [facility] / [id number] 05:33:21 Test Item Value Reference Range Interpretation [...] tions. Lab Interpretation (test Normal code = 38983-0) [facility]OLIC PAN[facility] ([id number])2022-02-11 05:33:21 Test Item Value Reference Range Interpretation Comments NA (test code = 137 mmol/L 135-145 3836124990) K (test code = 4.3 mmol/L 3.5-5 6914483165) CL (test code = 103 mmol/L 98-108 3532166926) CO2 TOTAL (test code = 25 mmol/L 23-31 7201197015) AGAP (test code = 2-16 5978759394) BUN (test code = 19 mg/dL 7-23 7838774978) GLUCOSE (test code = 120 mg/dL 70-110 H 5362864678) CREATININE (test code = 1.15 mg/dL 0.5-1.04 H 4669041657) TOTAL BILI (test code = 0.9 mg/dL 0.1-1.1 2082514394) CALCIUM (test code = 8.9 mg/dL 8.6-10.6 2486874464) T PROTEIN (test code = 6.6 g/dL 6.3-8.2 8502800321) ALBUMIN (test code = 4.0 g/dL 3.5-5 3900593138) ALK PHOS (test code = 73 U/L 34-122 0390425439) ALTv (test code = 18 U/L 5-35 1742-6) AST(SGOT) (test code = 31 U/L 13-40 1418405123) eGFR (test code = mL/min/1.73m2 5771907768) KYLE (test code = KYLE) Association of [...] tests). Lab Interpretation Abnormal (test code = 03530-1) [facility]. METABOLIC PANEL ([id number])2022-02-11 05:33:21 Test Item Value Reference Range Interpretation Comments NA (test code = 137 mmol/L 135-145 7465838709) K (test code = 4.3 mmol/L 3.5-5.0 8570237709) CL (test code = 103 mmol/L 98-108 9901673427) CO2 TOTAL (test code = 25 mmol/L 23-31 0774342043) AGAP (test code = 2-16 2092322367) BUN (test code = 19 mg/dL 7-23 5928397631) GLUCOSE (test code = 120 mg/dL 70-110 H 9827233817) CREATININE (test code = 1.15 mg/dL 0.50-1.04 H 4483710629) TOTAL BILI (test code = 0.9 mg/dL 0.1-1.4 5133077242) CALCIUM (test code = 8.9 mg/dL 8.6-10.6 7170258975) T PROTEIN (test code = 6.6 g/dL 6.3-8.2 9395523451) ALBUMIN (test code = 4.0 g/dL 3.5-5.0 3854221787) ALK PHOS (test code = 73 U/L 34-122 1030940831) ALTv (test code = 18 U/L 5-35 1742-6) AST(SGOT) (test code = 31 U/L 13-40 1826158923) eGFR (test code = mL/min/1.73m2 3259160809) KYLE (test code = KYLE) Association of [...] tests). Lab Interpretation Abnormal (test code = 75062-2) [facility] / [id number] 05:33:21 Test Item Value Reference Range Interpretation [...] tions. Lab Interpretation (test Normal code = 98280-8) [facility] WITH [id number] 05:14:37 Test Item Value Reference Range Interpretation [...] RDW-SD (test code = 47.9 fL 39-49.9 21147-4) RDW-CV (test code = 14.9 % 12-15.5 788-0) PLT (test code = See_Comment L [Automated 777-3) message] The sy stem which generated this result transmitted reference range : 166 - 358 10*3/ ?L. The reference r abbey was not used to interpret this result as normal/abnormal . MPV (test code = 9.1 fL 9.5-12.9 L 93709-7) NRBC/100 WBC (test See_Comment [Automat ed code = 7971566576) message] The system which generated this result transmitted reference range : 0.0 - 10.0 /100 WBCs. The refer ence range was not u sed to interpret th is result as normal/abnormal . NRBC x10^3 (test code See_Comment [Auto mated = 9048728663) message] The s ystem which generated this result transmitted reference range : 10*3/?L. The reference range was not used to interpret this result as normal/abnormal . GRAN MAT (NEUT) % 78.5 % (test code = 770-8) IMM GRAN % (test code 0.20 % = 1554662145) LYMPH % (test code = 11.6 % 736-9) MONO % (test code = 8.4 % 5905-5) EOS % (test code = 1.1 % 713-8) BASO % (test code = 0.2 % 706-2) GRAN MAT x10^3(ANC) 3.45 10*3/uL 1.88-7.09 (test code = [id number]) IMM GRAN x10^3 (test 0-0.06 code = [id number]) LYMPH x10^3 (test code 0.51 10*3/uL 1.32-3.29 L = 731-0) MONO x10^3 (test code 0.37 10*3/uL 0.33-0.92 = 742-7) EOS x10^3 (test code = 0.05 10*3/uL 0.03-0.39 711-2) BASO x10^3 (test code 0.01-0.07 = 704-7) Lab Interpretation Abnormal (test code = 50284-6) [facility] Coronavirus 2019 [id number] 18:08:00 Test Item Value Reference Range Interpretation [...] det ection of nucleic acids f rom [id number]-GrQ-[id number] v irus and diagnosis of SA RS-CoV-2 virusinfection. It is an Emergency Use Authorization ( EUA) testauthorized by the [place] FDA. BASIC METABOLIC [id number] 09:37:00 Test Item Value Reference Range Interpretation [...] = 9.0 mg/dL 8.0-10.5 N CA) PROTHROMBIN [id number] 09:32:00 Test Item Value Reference Range Interpretation [...] (to prevent recurrent infar ct). 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 [facility] - XR CHEST 1 [id number] 00:00:00 [facility] 1955 Sex: F FAX: Carmenza Kelly DO [phone] [place]: St: ADM FAX: Mike Scales MD [phone] FAX: Bahman Chopra [phone] Name: LIO WATTS [facility] Tano Garcia : 1955 Age/S: 66/F [address] [place] [address] Unit #: [id number] Loc: [place] [address] Phys: Bahman Chopra FASHION ARTIST Acct: [id number] Dis Date: Status: ADM IN PHONE #: [phone] Exam Date: 06/17/2021 1320 FAX #: [phone] Reason: WATCHMAN EXAMS: CPT CODE: [id number] XR CHEST 1 V 23857 PROCEDURE INFORMATION: Exam: XR Chest Exam date [...] Chopra Technologist: RT Taylor(R) Trnscrd Date/Time/By: 06/17/2021 (6478) : By: Susanna Orig Print D/T: S: 06/17/2021 (2738) PAGE 1 Signed ReportCOVID 19 Asymptomatic IH [id number] 12:29:00 Test Item Value Reference Range Interpretation [...] ergency Use Authorizati on(EUA) for use by [facility] certified under the CLIA thatmeet the requirements to perform moderate, high or waivedcomplexit y tests. BASIC METABOLIC [id number] 11:37:00 Test Item Value Reference Range Interpretation [...] code = 9.0 mg/dL 8.0-10.5 N CA) YCMPRJCBPP7219-07-92 11:37:00 Test Item Value Reference Range Interpretation Comments PREALBUMIN (test code = PREALB) 24.3 mg/dL 16.0-40.0 N PROTHROMBIN ARYG1767-78-03 11:03:00 Test Item Value Reference Range Interpretation [...] (to prevent recurrent infar ct). CBC W/AUTO [id number] 10:59:00 Test Item Value Reference Range Interpretation [...] 0.0-0.1 N NRBC#) - XR CHEST 2 [id number] 00:00:00 [facility] : 1955 Sex: F FAX: Carmenza Kelly Francisco H [phone] [place]: St: PRE FAX: Mike Scales MD [phone] Name: LIO WATTS [facility] : 1955 Age/S: 66/F [address] [place] [address] Unit #: [id number] Loc: [place] [address] Phys: Mike Lund MD Acct: [id number] Dis Date: Status: PRE SDC PHONE #: [phone] Exam Date: 06/16/2021 1120 FAX #: [phone] Reason: PREOP EXAMS: CPT CODE: [id number] XR CHEST 2 V 72246 PROCEDURE INFORMATION: Exam: XR Chest Exam date [...] By: [email or web address] Orig Print D/T: S: 06/16/2021 (0111) PAGE 1 Signed ReportGastrointestinal xszyi2079-51-04 04:35:05 Test Item Value Reference Interpretation Comments [...] Rotavirus PCR (test Not Detected code = 8207951) Salmonella PCR (test Not Detected code = [...] Not Detected (test code = 7124) [facility] thdysev1532-94-42 19:30:47 Test Item Value Reference Range Interpretation Comments Case number (test [id number] code = 1209423) Surgical pathology See link below for PDF report (test code = Lab Report 2255) Result status (test This is Supplemental code = 6835913) Report for [id number] [facility]2021-04-09 16:31:00 Test Item Value Reference Range Interpretation Comments POC Activated Clotting Time (test code 153 s = POC Activated Clotting Time) [facility]HesxeumGSERJJMRLD2618-03-28 16:31:00 Test Item Value Reference Range Interpretation Comments POC Activated Clotting Time (test code 153 s = POC Activated Clotting Time) [facility] HospitalXufeosiKIRPSZCTSU7603-44-25 16:31:00 Test Item Value Reference Range Interpretation Comments POC Activated Clotting Time (test code 153 s = POC Activated Clotting Time) [facility] HospitalStaukjnMZBNJHKOEC3089-21-26 16:31:00 Test Item Value Reference Range Interpretation Comments POC Activated Clotting Time (test code 153 s = POC Activated Clotting Time) [facility] HospitalUtrohdfIRSUOEHZEK1721-09-89 16:31:00 Test Item Value Reference Range Interpretation Comments POC Activated Clotting Time (test code 153 s = POC Activated Clotting Time) [facility] HospitalUzehdasZMTGLHFHEA4426-48-35 16:31:00 Test Item Value Reference Range Interpretation Comments POC Activated Clotting Time (test code 153 s = POC Activated Clotting Time) [facility] HospitalFdokbgqNAQISSHXWU9308-56-09 16:31:00 Test Item Value Reference Range Interpretation Comments POC Activated Clotting Time (test code 153 s = POC Activated Clotting Time) [facility] HospitalMsvzbvsMBVUEVGRBD7711-42-59 14:37:00 Test Item Value Reference Range Interpretation Comments POC Activated Clotting Time (test code 454 s = POC Activated Clotting Time) [facility] HospitalPhszbhgGZVCXXOBDS1276-28-32 14:37:00 Test Item Value Reference Range Interpretation Comments POC Activated Clotting Time (test code 454 s = POC Activated Clotting Time) [facility] HospitalRosznieIGPFIBLZJG0116-30-41 14:37:00 Test Item Value Reference Range Interpretation Comments POC Activated Clotting Time (test code 454 s = POC Activated Clotting Time) [facility] HospitalOgkktpgTHCTUTDHOM3073-17-94 14:37:00 Test Item Value Reference Range Interpretation Comments POC Activated Clotting Time (test code 454 s = POC Activated Clotting Time) [place] 809461-04-09 14:37:00 Test Item Value Reference Range Interpretation Comments POC Activated Clotting Time (test code 454 s = POC Activated Clotting Time) [facility] HospitalOsuzybsZAWSXGZCSM4207-99-67 14:37:00 Test Item Value Reference Range Interpretation Comments POC Activated Clotting Time (test code 454 s = POC Activated Clotting Time) [facility] HospitalAtdukggNCFQXZMGIT9909-22-01 14:37:00 Test Item Value Reference Range Interpretation Comments POC Activated Clotting Time (test code 454 s = POC Activated Clotting Time) [facility] HospitalCykgyjjQUADWNZBZV6485-17-24 14:13:00 Test Item Value Reference Range Interpretation Comments POC Activated Clotting Time (test code 354 s = POC Activated Clotting Time) [facility] HospitalJgqzrxrAADTDUJRNO4454-63-45 14:13:00 Test Item Value Reference Range Interpretation Comments POC Activated Clotting Time (test code 354 s = POC Activated Clotting Time) [facility] HospitalBgycjnvAZBMZYCMEY1911-31-36 14:13:00 Test Item Value Reference Range Interpretation Comments POC Activated Clotting Time (test code 354 s = POC Activated Clotting Time) [facility] HospitalFrlkvhlTEZKOVLBYW1356-97-72 14:13:00 Test Item Value Reference Range Interpretation Comments POC Activated Clotting Time (test code 354 s = POC Activated Clotting Time) [facility] HospitalCrqqawuAYWZOIGFBY7757-39-71 14:13:00 Test Item Value Reference Range Interpretation Comments POC Activated Clotting Time (test code 354 s = POC Activated Clotting Time) [facility] HospitalZcctlhmZAOZGOROXG3880-80-01 14:13:00 Test Item Value Reference Range Interpretation Comments POC Activated Clotting Time (test code 354 s = POC Activated Clotting Time) [facility] HospitalQkhgtfeTEGHGIZKUN3998-73-46 14:13:00 Test Item Value Reference Range Interpretation Comments POC Activated Clotting Time (test code 354 s = POC Activated Clotting Time) [facility] OUYTOLF6621-63-38 10:37:00Negative (08/29/20 5:37 AM) [facility] NINWQ6735-79-22 10:37:07820Tnhhcbou HermannCHEM PANEL 2020-08-29 10:37:0028[facility]annCHE[facility] MIOJN0978-11-72 10:37:001.01[facility]annCHEM EZROL2533-17-96 10:37:22413Kowdujij HermannCHEM EKMNS5425-20-60 10:37:003.8[facility]annCHEM TPGTN9418-40-16 10:37:21902Klrnqycg HermannCHEM KQQIP5687-00-66 10:37:0028[facility]annCHE[facility] AXLDT6997-13-73 10:37:009.8 [facility]annCHE[facility] POXIK4553-89-68 10:37:0011.8[facility]annCHEM PANEL 2020-08-29 10:37:0059[facility]annCHE[facility] HBZEQ9151-96-44 10:37:002.9[facility] ZhhlmcpWWSSQMKBSL6724-92-12 10:37:006.8[facility] QvmzhoqLMOHDMGAKX5225-47-48 10:37:004.47[facility] RofohhfSATDDYNAOB3280-38-54 10:37:0010.6[facility] YYUBABWLHH0921-05-34 10:37:0034.0[facility] FyzyfmiSCTFZZWCCP1037-54-97 10:37:00 76.1[facility] LkrejhwUIOSMJKHVM6726-30-11 10:37:00 Test Item Value Reference Range Interpretation Comments MCH (test code = MCH) 23.8 pg 27.0-31.0 [facility] PnpmmjkDPOURKARBR7985-63-76 10:37:0031.3[facility]annHEMATOLOGY 2020-08-29 10:37:0018.2[facility] ZlvpyaaRKATMVPDIG9164-70-36 10:37:31007Fhamykce JxmwstfHNBIONOVRB8326-55-11 10:37:007.5[facility] BrkymucXXBQWBPVTD9471-25-04 10:37:00 Test Item Value Reference Range Interpretation Comments PT (test code = PT) 12.8 s 12.0-14.7 [facility] QfsuizwWSPJDAFLDD0655-83-84 10:37:00 Test Item Value Reference Range Interpretation Comments INR (test code = INR) 0.97 1 0.85-1.17 [facility] NuyfvmxSUXRNWVJYK0124-46-55 10:37:00 Test Item Value Reference Range Interpretation Comments PTT (test code = PTT) 25.0 s 22.9-35.8 [facility] SftzjsaTYXYOUOGTF7314-74-94 10:37:0070.5[facility]annHEMATOLOGY 2020-08-29 10:37:0018.8[facility] PbocirkHBAWZHZQMW6862-98-37 10:37:009.5[facility] RajxcyoHIRFSDIZAY2593-08-48 10:37:000.9[facility] OzlcmvpNDSUDMIMLS2912-14-79 10:37:000.3[facility] PpddpwjBMXJVLSNXL2387-06-89 10:37:004.8[facility] WNMFDRJAZT3753-75-50 10:37:001.3[facility] HuuidbvQNTUHTXIDX8167-50-47 10:37:000.6 [facility] UgbzkzgXQILXBKPEC8276-92-08 10:37:000.1[facility]annHEMATOLOGY 2020-08-29 10:37:001+ *ABN*(08/29/20 5:37 AM)[facility] KbarbgmXBXDYRRARP7668-44-31 10:37:00Not Detected (08/29/20 5:37 AM)[facility]annBLOOD BANK RESULTS 2020-08-29 10:37:00Negative (08/29/20 5:37 AM)[facility]annCHEM VFKAF1277-09-51 10:37:81246Lqwgshou HermannCHEM TWTDV1624-26-87 10:37:0028[facility]annCHEM AKRQL7883-91-82 10:37:001.01[facility]annCHEM MDBZB6879-00-74 10:37:32046 [facility]annCHE[facility] CFURP9287-47-15 10:37:003.8[facility] HermannCHEM PANEL 2020-08-29 10:37:41880Txrgizwk HermannCHEM QSBGX1607-58-37 10:37:0028[facility]annCHEM CYKBX9639-14-14 10:37:009.8[facility] HermannCHEM UMWUB4723-50-13 10:37:0011.8[facility]annCHEM HFTAC8015-99-67 10:37:0059[facility]annCHEM WXSUA5723-16-84 10:37:002.9[facility] FqzatkpFZITXXIGZJ6455-28-91 10:37:006.8 [facility] SdysytfJUJCIBSRHU3898-35-79 10:37:004.47[facility]annHEMATOLOGY 2020-08-29 10:37:0010.6[facility] NbtbrytKQYLQLJDVW8017-31-95 10:37:0034.0[facility] BnkfgiqJASAJMXDIG2067-31-10 10:37:0076.1[facility] BvicqgiOZYLEFMWOS6457-97-15 10:37:00 Test Item Value Reference Range Interpretation Comments MCH (test code = MCH) 23.8 pg 27.0-31.0 [facility] IeqsbbsULVEIWGKZL8631-39-22 10:37:0031.3[facility]annHEMATOLOGY 2020-08-29 10:37:0018.2[facility] OsjkfdgDJOQZIWTYL1970-29-85 10:37:72175Vnvhohrx DdmpvfoXYGXDWZCMX6457-86-18 10:37:007.5[facility] OhluxyoHJDJLHMBJU5243-74-15 10:37:00 Test Item Value Reference Range Interpretation Comments PT (test code = PT) 12.8 s 12.0-14.7 [facility] QdechknEMSGDMFECO1796-97-64 10:37:00 Test Item Value Reference Range Interpretation Comments INR (test code = INR) 0.97 1 0.85-1.17 [facility] NnoxxydAMQSOLMYWT8683-72-91 10:37:00 Test Item Value Reference Range Interpretation Comments PTT (test code = PTT) 25.0 s 22.9-35.8 [facility] EpnvxfhSFLSHVMNAL5288-83-47 10:37:0070.5[facility]annHEMATOLOGY 2020-08-29 10:37:0018.8[facility] UinqcfdDAAOYOKDKH0488-36-06 10:37:009.5[facility] BuyipebMCHEBDHMGJ7566-72-34 10:37:000.9[facility] FtczquhNKKMIBKPOB2381-24-99 10:37:000.3[facility] MsepsbaCKAEKHXKCG1854-92-77 10:37:004.8[facility] EUSLRGLKTM2211-52-93 10:37:001.3[facility] RpltnlgZVVWVSNIEM3544-43-25 10:37:000.6 [facility] JibrpaiBYSOZCIQUQ5821-74-52 10:37:000.1[facility]annHEMATOLOGY 2020-08-29 10:37:001+ *ABN*(08/29/20 5:37 AM)[facility] VlefvypRPNEWSFMHK6914-89-65 10:37:00Not Detected (08/29/20 5:37 AM)[facility]annBLOOD BANK RESULTS 2020-08-29 10:37:00Negative (08/29/20 5:37 AM)[facility]annCHEM FWREU8309-27-64 10:37:26066Dakfnvwp HermannCHEM FNFEL1116-15-81 10:37:0028[facility]annCHEM UVHHE9943-03-96 10:37:001.01[facility]annCHEM GDQLP2594-29-15 10:37:69613 [facility]annCHE[facility] RVIOK2547-69-12 10:37:003.8[facility] HermannCHEM PANEL 2020-08-29 10:37:76518Iwtmzkli HermannCHEM NVAOE4494-37-88 10:37:0028[facility]annCHEM LYZJH6537-72-49 10:37:009.8[facility] HermannCHEM PSRZG3831-79-29 10:37:0011.8[facility] HermannCHEM YDSGB8791-25-30 10:37:0059[facility]annCHEM XSKCM5928-26-31 10:37:002.9[facility] EkowcmcMZMGQYIXRY8475-72-50 10:37:006.8 [facility] PbfflgsRULEAHTFME8812-47-11 10:37:004.47[facility]annHEMATOLOGY 2020-08-29 10:37:0010.6[facility] YqtlrtzTWXBUCJDYE1781-14-43 10:37:0034.0[facility] ZnovjsbXBWGYCNRRN6541-89-27 10:37:0076.1[facility] WcomuwcLUJAQVHSLD6592-90-31 10:37:00 Test Item Value Reference Range Interpretation Comments MCH (test code = MCH) 23.8 pg 27.0-31.0 [facility] GnixhmcYJQWIHHOZX1399-38-28 10:37:0031.3[facility]annHEMATOLOGY 2020-08-29 10:37:0018.2[facility] YlodcpaBLITRTWHZF6443-18-22 10:37:59333Kzvmgwsq NkphljlGZSFRDXNLK7006-59-58 10:37:007.5[facility] OyerdhhLMAJGXKEEP4056-99-96 10:37:00 Test Item Value Reference Range Interpretation Comments PT (test code = PT) 12.8 s 12.0-14.7 [facility] NahcklsYSLQKWBCMF0669-90-53 10:37:00 Test Item Value Reference Range Interpretation Comments INR (test code = INR) 0.97 1 0.85-1.17 [facility] DghtbqsOIMBEPMVFB7348-22-04 10:37:00 Test Item Value Reference Range Interpretation Comments PTT (test code = PTT) 25.0 s 22.9-35.8 [facility] AaftyydYSXDQEHUKH3232-00-77 10:37:0070.5[facility]annHEMATOLOGY 2020-08-29 10:37:0018.8[facility] EzsgkidAENEHEFJZK0271-27-37 10:37:009.5[facility] PycghnbOYQICYPWCN0295-82-41 10:37:000.9[facility] HdkgxdpMYTIZHRYYZ8146-78-37 10:37:000.3[facility] VyivzdzCAKAGRTCWJ3073-25-25 10:37:004.8[facility] AVNCGJKYRV4287-39-27 10:37:001.3[facility] NewwidiHKKEPTXUDZ1288-76-83 10:37:000.6 [facility] JcwiirfGRAJUHSKSR8846-13-02 10:37:000.1[facility]annHEMATOLOGY 2020-08-29 10:37:001+ *ABN*(08/29/20 5:37 AM)[facility] ItgxvbwQAUFBEDPLQ0896-53-93 10:37:00Not Detected (08/29/20 5:37 AM)[facility]annBLOOD BANK RESULTS 2020-08-29 10:37:00Negative (08/29/20 5:37 AM)[facility]annCHEM BIHRT0855-80-68 10:37:04233Dzoaqlzp HermannCHEM VXOMM9328-40-40 10:37:0028[facility]annCHEM FTSDS8154-96-39 10:37:001.01[facility]annCHEM RTVBV4289-37-83 10:37:94478 [facility]annCHE[facility] UVJNR4764-54-90 10:37:003.8[facility] HermannCHEM PANEL 2020-08-29 10:37:18811Ebcmqqfj HermannCHEM VBFHF7708-19-12 10:37:0028[facility]annCHEM YRRMN1312-77-92 10:37:009.8[facility] HermannCHEM AMNPX2525-96-75 10:37:0011.8[facility] HermannCHEM LVGEM2295-77-44 10:37:0059[facility]annCHEM OVIBN8626-54-77 10:37:002.9[facility] FdojcxdNKWKGADLLC5248-98-55 10:37:006.8 [facility] TbuojagCPHQBNJNKY3431-02-89 10:37:004.47[facility]annHEMATOLOGY 2020-08-29 10:37:0010.6[facility] CpwycdgPFUQRPYYHH3578-16-91 10:37:0034.0[facility] CieukbnNHDXCXGBML1435-10-75 10:37:0076.1[facility] LqyftmiTPEQDHIJUP3140-44-43 10:37:00 Test Item Value Reference Range Interpretation Comments MCH (test code = MCH) 23.8 pg 27.0-31.0 [facility] TnzkrpiNYLNPEKKEQ9996-33-44 10:37:0031.3[facility]annHEMATOLOGY 2020-08-29 10:37:0018.2[facility] PmlebtpYTLFDYGNYE9208-81-94 10:37:32877Roocjffb PnexmgmQSOASAJJSD0332-90-95 10:37:007.5[facility] JaczwzaRLGMPTVFQD2835-73-88 10:37:00 Test Item Value Reference Range Interpretation Comments PT (test code = PT) 12.8 s 12.0-14.7 [facility] PxrkatrJHPSIUHORH2272-08-75 10:37:00 Test Item Value Reference Range Interpretation Comments INR (test code = INR) 0.97 1 0.85-1.17 [facility] EyfhfxqVAYEJEQEJZ2899-82-14 10:37:00 Test Item Value Reference Range Interpretation Comments PTT (test code = PTT) 25.0 s 22.9-35.8 [facility] RybgrueGJIDYKHGMX4031-94-34 10:37:0070.5[facility]annHEMATOLOGY 2020-08-29 10:37:0018.8[facility] JygvldrMLONIFEBPK9668-77-67 10:37:009.5[facility] LnfvjnsBQIOKZOOJM5075-35-48 10:37:000.9[facility] TgfyptbFIODMOJYWA3056-71-45 10:37:000.3[facility] IhnlpdpRCUVKJYTER2604-19-46 10:37:004.8[facility] DDGQSKOHLM8463-96-57 10:37:001.3[facility] QkjkrcrTVWSHVKCFR1239-33-73 10:37:000.6 [facility] GoqjqgjZIEUFVBEQG5150-51-26 10:37:000.1[facility]annHEMATOLOGY 2020-08-29 10:37:001+ *ABN*(08/29/20 5:37 AM)[facility] EidqoanKQFEIFMQCL0303-32-86 10:37:00Not Detected (08/29/20 5:37 AM)[facility]annBLOOD BANK RESULTS 2020-08-29 10:37:00Negative (08/29/20 5:37 AM)[facility]annCHEM SPHSQ3571-57-65 10:37:27899Qrblpuqj HermannCHEM QVZZY5216-77-91 10:37:0028[facility]annCHEM BBXBL5075-52-94 10:37:001.01[facility]annCHEM TZKJK3780-30-49 10:37:25001 [facility]annCHEM XOGES6674-73-05 10:37:003.8[facility] HermannCHEM PANEL 2020-08-29 10:37:03204Jrbkrqxn HermannCHEM EXKLH8732-18-08 10:37:0028[facility]annCHEM NOEBK9742-75-06 10:37:009.8[facility]annCHEM YVOTD3679-42-70 10:37:0011.8[facility] HermannCHEM FNHPH8817-74-20 10:37:0059[facility]annCHEM CNUXV6531-77-88 10:37:002.9[facility] PvogeqwEQVLXUHVHL3256-64-17 10:37:006.8 [facility] JwrnuehPAOLKVBEJW9153-52-46 10:37:004.47[facility]annHEMATOLOGY 2020-08-29 10:37:0010.6[facility] UnmwcnmAIOXPJYCFA0541-77-13 10:37:0034.0[facility] VtiuucaQPSMPNQPRQ2962-10-50 10:37:0076.1[facility] UjpjuerFBYCOLHPBX2385-67-24 10:37:00 Test Item Value Reference Range Interpretation Comments MCH (test code = MCH) 23.8 pg 27.0-31.0 [facility] YdkqeseVQQLYDYZPS6393-76-66 10:37:0031.3[facility]annHEMATOLOGY 2020-08-29 10:37:0018.2[facility] WekwbueFNCORKFEIP2119-00-71 10:37:86576Nmvqwrfq GcwdgohRUIZDYMWER0628-37-27 10:37:007.5[facility] EdvoaspLZPOGCIMTJ1889-78-20 10:37:00 Test Item Value Reference Range Interpretation Comments PT (test code = PT) 12.8 s 12.0-14.7 [facility] UuyrlidBEWNIMCNUC9097-55-93 10:37:00 Test Item Value Reference Range Interpretation Comments INR (test code = INR) 0.97 1 0.85-1.17 [facility] JpuptlyZLYLKDMTWD2467-14-75 10:37:00 Test Item Value Reference Range Interpretation Comments PTT (test code = PTT) 25.0 s 22.9-35.8 [facility] OfqalegUWKVCUCELH2360-42-17 10:37:0070.5[facility]annHEMATOLOGY 2020-08-29 10:37:0018.8[facility] DcuwtedSRCWRCNXRZ6344-53-04 10:37:009.5[facility] RbwiglhXPHWBECEXV0420-13-77 10:37:000.9[facility] NqfpdieVNQGRTKVFL8150-31-13 10:37:000.3[facility] QixcoglDGBWIUNXDM8599-60-85 10:37:004.8[facility] LNVTCOXFWU4800-91-34 10:37:001.3[facility] MawkjeoTUYJWJXXFE6455-67-60 10:37:000.6 [facility] XxmgxyaZXNAJXAUDI3780-92-17 10:37:000.1[facility]annHEMATOLOGY 2020-08-29 10:37:001+ *ABN*(08/29/20 5:37 AM)[facility] VweprubEWEVDMPILE4278-78-90 10:37:00Not Detected (08/29/20 5:37 AM)[facility]annBLOOD BANK RESULTS 2020-08-29 10:37:00Negative (08/29/20 5:37 AM)[facility] HermannCHEM RQNWQ9431-04-95 10:37:07882Zlweqhpl HermannCHEM ZUVZT0427-27-93 10:37:0028[facility] HermannCHEM QASJB4861-47-84 10:37:001.01[facility] HermannCHEM LWFTA0205-67-55 10:37:99108 [facility]annCHEM QXJPP3326-84-09 10:37:003.8[facility] HermannCHEM PANEL 2020-08-29 10:37:70579Uypmnqiv HermannCHEM ZUTPY9516-82-69 10:37:0028[facility] HermannCHEM SOINU3826-19-52 10:37:009.8[facility] HermannCHEM GUVYG0644-77-40 10:37:0011.8[facility] HermannCHEM NTMKT1603-45-92 10:37:0059[facility] HermannCHEM NVYTE0032-77-73 10:37:002.9[facility] EocbbafUAWBQWEHFA3104-14-23 10:37:006.8 [facility] HripuulJWXVCBQWMN5848-72-50 10:37:004.47[facility]annHEMATOLOGY 2020-08-29 10:37:0010.6[facility] OqhytkeVWCNDALGPH7184-56-67 10:37:0034.0[facility] XudeljhLANUKQKGTW6166-96-82 10:37:0076.1[facility] MabamcdBKWKFUHZBM1358-76-66 10:37:00 Test Item Value Reference Range Interpretation Comments MCH (test code = MCH) 23.8 pg 27.0-31.0 [facility] RwcjxuqGEQANICMXZ0130-42-74 10:37:0031.3[facility]annHEMATOLOGY 2020-08-29 10:37:0018.2[facility] XycglaeEABRRTIMLR9795-98-94 10:37:36741Fqsnelkr JliocsnAEQPXGJTKM8392-36-96 10:37:007.5[facility] WukspquUAYIBRBTZI1007-33-67 10:37:00 Test Item Value Reference Range Interpretation Comments PT (test code = PT) 12.8 s 12.0-14.7 [facility] FcqmbgpTRCGAYBZQS9972-91-90 10:37:00 Test Item Value Reference Range Interpretation Comments INR (test code = INR) 0.97 1 0.85-1.17 [facility] QykaeaoPTXFWKLIIR2390-44-36 10:37:00 Test Item Value Reference Range Interpretation Comments PTT (test code = PTT) 25.0 s 22.9-35.8 [facility] HdfabmwFEDYURVKBI9511-46-26 10:37:0070.5[facility]annHEMATOLOGY 2020-08-29 10:37:0018.8[facility] VfwvxgsAZFUCIEJZL6604-60-25 10:37:009.5[facility] LkigqqiGTOODMVVTJ6553-63-18 10:37:000.9[facility] GlttkhdVZRBFEEMYZ4347-17-91 10:37:000.3[facility] UxvvybqESDXPLKYPW1886-32-58 10:37:004.8[facility] YJHXQBNVTL6473-04-25 10:37:001.3[facility] WvomgqhFIJEQSRTNG0812-54-90 10:37:000.6 [facility] QfbqwvtDOJQDLFRVE9780-57-43 10:37:000.1[facility]annHEMATOLOGY 2020-08-29 10:37:001+ *ABN*(08/29/20 5:37 AM)[facility] TbzmmkpHZTLEEWFWT7930-44-35 10:37:00Not Detected (08/29/20 5:37 AM)[facility] RESULTS 2020-08-29 10:37:00Negative (08/29/20 5:37 AM)[facility]annCHEM ZJDAL8710-14-97 10:37:51172Ivvvsygs HermannCHEM WVVMO7623-47-84 10:37:0028[facility]annCHEM FUUBL2276-47-59 10:37:001.01[facility] HermannCHEM IJXUK9971-29-08 10:37:63266 [facility]annCHE[facility] ZEQIE0245-26-16 10:37:003.8[facility]annCHEM PANEL 2020-08-29 10:37:12943Oapjpdgi HermannCHEM ELTOD6516-98-39 10:37:0028[facility]annCHEM TFPAS3051-78-72 10:37:009.8[facility] HermannCHEM EEGUI7988-62-56 10:37:0011.8[facility]annCHEM JKTJQ1163-80-11 10:37:0059[facility]annCHEM XDDQY7736-23-79 10:37:002.9[facility] MzcatifZRLBNSATXM8016-74-71 10:37:006.8 [facility] KsepxkiSJWFIUHGWO9843-08-54 10:37:004.47[facility]annHEMATOLOGY 2020-08-29 10:37:0010.6[facility] DnusyulFASGGTJKIK5466-68-99 10:37:0034.0[facility] LfogdrgIMGDCJBFHV2783-14-02 10:37:0076.1[facility] VntorjeMBPBUCHYIU6477-22-44 10:37:00 Test Item Value Reference Range Interpretation Comments MCH (test code = MCH) 23.8 pg 27.0-31.0 [facility] EjcixahNTEKZBRFAR4426-09-98 10:37:0031.3[facility]annHEMATOLOGY 2020-08-29 10:37:0018.2[facility] HaktfnnDODQXUWGOY3664-93-47 10:37:68867Ethbgngp GfyeaziBOATHHLQTZ8704-99-19 10:37:007.5[facility] DwfahjfIEECXBLTWP0180-04-17 10:37:00 Test Item Value Reference Range Interpretation Comments PT (test code = PT) 12.8 s 12.0-14.7 [facility] GbqjpppWOHICDINQN7646-84-37 10:37:00 Test Item Value Reference Range Interpretation Comments INR (test code = INR) 0.97 1 0.85-1.17 [facility] AfazjddPTEXESNXMC3822-41-73 10:37:00 Test Item Value Reference Range Interpretation Comments PTT (test code = PTT) 25.0 s 22.9-35.8 [facility] YadvtgpKSKCVRSNOF8886-00-67 10:37:0070.5[facility]annHEMATOLOGY 2020-08-29 10:37:0018.8[facility] AnuyfciXFOSWVNYEC8349-18-09 10:37:009.5[facility] GvaqrrdURCLERDZAD1817-15-44 10:37:000.9[facility] DbekvrdPRGJTIHMKU3703-19-19 10:37:000.3[facility] ZsqlzlaZMKNXCIYMQ8637-35-65 10:37:004.8[facility] EPDSZIRVSK6190-85-21 10:37:001.3[facility] RqrsgxpCRRIZOYCLP7297-61-02 10:37:000.6 [facility] IexvnvyJBEBUDQQBW8712-60-12 10:37:000.1[facility]annHEMATOLOGY 2020-08-29 10:37:001+ *ABN*(08/29/20 5:37 AM)[facility] PqnblysCYHZCUTNQQ4958-30-46 10:37:00Not Detected (08/29/20 5:37 AM)[facility] HermannCHLAMYDIA, GC, TV,PCR, IN SAYMY6740-18-77 15:38:00 Test Item Value Reference Range Interpretation Comments FT (test code = CHTR) Not detected (qualifier Not Detected N value) FT (test code = Not detected (qualifier Not Detected N NGONO) value) FT (test code = TRVG) Not detected (qualifier Not Detected N value) [facility] WITH VHMIFIMOYDF1202-42-97 10:57:00 Test Item Value Reference Range Interpretation Comments Color (test code = UCOLR) Dk. Yellow Clarity (test code = UCLAR) Hazy Glucose (test code = UGLUC) NEGATIVE NEGATIVE N Bilirubin (test code = UBILI) NEGATIVE NEGATIVE N Ketones (test code = UKET) NEGATIVE NEGATIVE N Specific [place] (test code = 1.025 1.005-1.030 A USPGR) [...] Seen None Seen N URCRYS) [facility]"
[2023-02-10 20:49] LABS: Specific Gravity 1.012 (1.005-1.030); Urine Bacteria None Seen /HPF (<20); Urine Bilirubin NEGATIVE (Negative); Urine Blood Negative (Negative); Urine Clarity Clear (Clear); Urine Color Light-Yellow (Yellow); Urine Glucose NEGATIVE (Negative); Urine Protein TRACE (Negative); Urine RBC <5 /HPF (None Seen); Urine Urobilinogen Normal (Normal); Urine pH 7.5 (5.0-7.0)
[2023-02-10 21:37] LABS: Absolute Lymphocytes (CBC) 0.8 K/uL (0.7-4.9); Hematocrit 32.7 % (36.0-45.0); Lymphocytes % 14.8 % (15.3-44.8); MCV 80.9 fL (80-100); MPV 7.2 fL (7.6-11.3); Platelets 123 thou/uL (152-406); RBC Red Blood Cell Count 4.04 M/uL (3.86-4.86)
[2023-02-10] MEDS ORDERED: DICYCLOMINE HCL 10 MG CAP ONE (21:55)
[2023-02-10] MEDS ORDERED: PROMETHAZINE INJ 25 MG/ML AMP ONE (21:55)
[2023-02-10] MEDS ORDERED: cloNIDine HCL 0.1 MG TAB ONE (21:55)
[2023-02-10 22:00] LABS: Albumin 3.6 g/dL (3.4-5.0); Bilirubin Total 0.8 mg/dL (0.2-1.0); Potassium 3.2 mEq/L (3.5-5.1); Protein, Total 7.3 g/dL (6.4-8.2)
[2023-02-10] MEDS ORDERED: POTASSIUM 25 MEQ EFFERV TAB ONE (23:08)
--- NOTE | 2023-02-10 23:25 | ER ---
Nurse's Notes [facility] Name: Marjan Kolb Age: 68 yrs Sex: Female : 1955 Arrival Date: 02/10/2023 Time: 19:05 Bed 19 Private MD: Diagnosis: Lower abdominal pain, unspecified;Nausea;Hypertensive heart disease without heart failure Presentation: 02/10 19:36 Chief complaint: Patient states: Abdominal pain X3 days. Pt reports that the pain is to cm10 her umbilical area. Pt noted to be eating cookies in triage. Coronavirus screen: Vaccine status: Patient reports receiving the 2nd dose of the covid vaccine. Ebola Screen: Patient denies travel to an Ebola-affected area in the 21 days before illness onset. No symptoms or risks identified at this time. Initial Sepsis Screen: Does the patient meet any 2 criteria? No. Patient's initial sepsis screen is negative. Does the patient have a suspected source of infection? No. Patient's initial sepsis screen is negative. Risk Assessment: Do you want to hurt yourself or someone else? Patient reports no desire to harm self or others. Onset of symptoms was February 10, 2023. 19:36 Method Of Arrival: Wheelchair cm10 19:36 Acuity: BLAYNE 3 cm10 Triage Assessment: 19:39 General: Appears in no apparent distress. comfortable, Behavior is calm, cooperative. cm10 Neuro: No deficits noted. Level of Consciousness is awake, alert, obeys commands, Oriented to person, place, time, situation. Respiratory: No deficits noted. Airway is patent Respiratory effort is even, unlabored, Respiratory pattern is regular, symmetrical. Historical: - Allergies: 19:38 Azithromycin; cm10 19:38 Bactrim; cm10 19:38 butorphanol; cm10 19:38 Fentanyl; cm10 19:38 Reglan; cm10 19:38 Sulfa (Sulfonamide Antibiotics); cm10 19:38 TRIMETHOPRIM; cm10 - PMHx: 19:38 angina pectoris; Anxiety; Atrial fibrillation; Bipolar disorder; esophageal varicies; cm10 Hepatitis; HIV positive; Hypertensive disorder; Migraine; panic attack; - PSHx: 19:38 Appendectomy; Cholecystectomy; cm10 - Immunization history:: Adult Immunizations unknown. - Social history:: Smoking status: Patient/guardian denies using tobacco, the patient reports quitting approximately 3 years ago. Screenin:[address] [facility] ED Fall Risk Assessment (Adult) History of falling in the last 3 months, bp including since admission No falls in past 3 months (0 pts). Abuse screen: Denies threats or abuse. Denies injuries from another. Nutritional screening: No deficits noted. Tuberculosis screening: No symptoms or risk factors identified. Assessment: 20:35 General: RECD PT AMBULATORY FROM TRIAGE. PT SEEN FOR SAME S/S LESS THAN 3 DAYS AGO, NO bp SIGNS OF ACUTE DISTRESS. NO EVIDENCE OF VOMITING, VS NOT MARKEDLY DIFFERENT FROM PREVIOUS VISITS. PT CHRONICALLY NON-COMPLIANT WITH HOME MEDS. 21:20 Reassessment: MX PIV ATTEMPTS FAILED, NOTIFIED. PHLEBOTOMY CONTACTED FOR LAB DRAW. bp Vital Signs: 19:36 BP 211 / 124; Pulse 68; Resp 18; Temp 97.9; Pulse Ox 100% ; Weight 86.18 kg; Height 5 cm10 ft. 4 in. ; Pain 9/10; 21:54 BP 211 / 107; Pulse 71; Resp 18; Pulse Ox 95% ; bp 22:42 BP 184 / 109; Pulse 77; Resp 16; Pulse Ox 100% ; bp 23:16 BP 178 / 85; Pulse 62; Resp 16; Pulse Ox 98% ; bp 19:36 Body Mass Index 32.61 (86.18 kg, 162.56 cm) cm10 19:36 Pain Scale: Adult cm10 ED Course: 19:08 Patient arrived in ED. kj1 19:12 Justus Neil PA is PHCP. cp 19:13 Howard Samaniego MD is Attending Physician. cp 19:38 Triage completed. cm10 19:39 Arm band placed on Patient placed in waiting room. cm10 20:34 Carlos Eduardo Olivera, ASHLEY is Primary Nurse. bp 20:36 Patient has correct armband on for positive identification. Bed in low position. Call bp light in reach. Side rails up X2. 02/11 00:03 No provider procedures requiring assistance completed. Patient did not have IV access bp during this emergency room visit. Administered Medications: 02/10 21:53 Not Given (Other Intervention Used): [id number] mg IVP once bp 21:53 Not Given (Other Intervention Used): ns 0.9% 500 ml IV at 250 ml/hr continuous bp 21:53 Not Given (Other Intervention Used): [id number] mg IVP once bp 21:53 Drug: Promethazine IM 25 mg IM once Route: IM; Site: right vastus lateralis; bp 21:53 Drug: Dicyclomine IM 20 mg IM once Route: IM; Site: Other; bp 21:53 Drug: cloNIDine PO 0.2 mg PO once Route: PO; bp 21:54 Not Given (Other Intervention Used): ondansetron 4 mg IVP once; over 2 minutes bp 22:45 Drug: Potassium PO Effervescent Tablet 50 mEq PO once; dissolve in 4 ounces of water or bp juice Route: PO; Outcome: 23:23 Discharge ordered by . cp 02/11 00:03 Discharged to home via wheelchair, bp Condition: stable Discharge instructions given to patient, Instructed on discharge instructions, follow up and referral plans. medication usage, Demonstrated understanding of instructions, follow-up care, medications, Prescriptions given X 1, 00:03 Patient left the ED. bp Signatures: Justus Neil PA PA cp Carlos Eduardo Olivera RN RN bp Liv Cespedes kj1 Anika Simons RN RN cm10 Corrections: (The following items were deleted from the chart) 02/10 20:40 20:35 General: RECD PT AMBULATORY FROM TRIAGE. PT SEEN FOR SAME S/S LESS THAN 3 DAYS bp AGO, SAME S/S IN EXCESS OF 200 VISITS. NO EVIDENCE OF VOMITING, VS NOT MARKEDLY DIFFERENT FROM PREVIOUS VISITS. PT CHRONICALLY NON-COMPLIANT WITH HOME MEDS. bp 21:21 21:20 Reassessment: MX PIV ATTEMPTS FAILED, MD NOTIFIED bp bp
--- NOTE | 2023-02-10 23:25 | EDPHYS ---
Physician Documentation [facility] Name: Marjan Kolb Age: 68 yrs Sex: Female : 1955 Arrival Date: 02/10/2023 Time: 19:05 Bed 19 Private MD: ED Physician Howard Samaniego Historical: - Allergies: 02/10 19:38 Azithromycin; cm10 19:38 Bactrim; cm10 19:38 butorphanol; cm10 19:38 Fentanyl; cm10 19:38 Reglan; cm10 19:38 Sulfa (Sulfonamide Antibiotics); cm10 19:38 TRIMETHOPRIM; cm10 - PMHx: 19:38 angina pectoris; Anxiety; Atrial fibrillation; Bipolar disorder; esophageal varicies; cm10 Hepatitis; HIV positive; Hypertensive disorder; Migraine; panic attack; - PSHx: 19:38 Appendectomy; Cholecystectomy; cm10 - Immunization history:: Adult Immunizations unknown. - Social history:: Smoking status: Patient/guardian denies using tobacco, the patient reports quitting approximately 3 years ago. Vital Signs: 19:36 BP 211 / 124; Pulse 68; Resp 18; Temp 97.9; Pulse Ox 100% ; Weight 86.18 kg; Height 5 cm10 ft. 4 in. ; Pain 9/10; 21:54 BP 211 / 107; Pulse 71; Resp 18; Pulse Ox 95% ; bp 22:42 BP 184 / 109; Pulse 77; Resp 16; Pulse Ox 100% ; bp 23:16 BP 178 / 85; Pulse 62; Resp 16; Pulse Ox 98% ; bp 19:36 Body Mass Index 32.61 (86.18 kg, 162.56 cm) cm10 19:36 Pain Scale: Adult cm10 MDM: 19:41 Patient medically screened. cp 02/10 19:40 Order name: CBC with Diff; Complete Time: 22:35 cp 02/10 22:35 Interpretation: Normal except: HGB 10.5; HCT 32.7; MCH 25.9; PLT 123; RDW 17.0; MPV cp 7.2; LYM% 14.8. 02/10 19:40 Order name: CMP; Complete Time: 22:35 cp 02/10 22:35 Interpretation: Normal except: K 3.2; CRE 1.27; GFR 46; ALT 12; GLOB 3.7; A/G 1.0. cp 02/10 19:40 Order name: Lipase; Complete Time: 22:35 cp 02/10 19:40 Order name: Urinalysis w/ reflexes; Complete Time: 22:35 cp 02/10 19:40 Order name: Labs collected and sent; Complete Time: 21:53 cp Administered Medications: 21:53 Not Given (Other Intervention Used): [id number] mg IVP once bp 21:53 Not Given (Other Intervention Used): ns 0.9% 500 ml IV at 250 ml/hr continuous bp 21:53 Not Given (Other Intervention Used): [id number] mg IVP once bp 21:53 Drug: Promethazine IM 25 mg IM once Route: IM; Site: right vastus lateralis; bp 21:53 Drug: Dicyclomine IM 20 mg IM once Route: IM; Site: Other; bp 21:53 Drug: cloNIDine PO 0.2 mg PO once Route: PO; bp 21:54 Not Given (Other Intervention Used): ondansetron 4 mg IVP once; over 2 minutes bp 22:45 Drug: Potassium PO Effervescent Tablet 50 mEq PO once; dissolve in 4 ounces of water or bp juice Route: PO; Disposition Summary: 02/10/23 23:23 Discharge Ordered Notes: Location: Home cp Problem: new cp Symptoms: have improved cp Condition: Stable cp Diagnosis - Lower abdominal pain, unspecified cp - Nausea cp - Hypertensive heart disease without heart failure cp Followup: cp - With: Private Physician - When: 1 - 2 days - Reason: Recheck today's complaints Discharge Instructions: - Discharge Summary Sheet cp - Abdominal Pain, Adult cp - Hypertension, Adult cp - Nausea, Adult cp Forms: - Medication Reconciliation Form cp - Thank You Letter cp - Antibiotic Education cp - Prescription Opioid Use cp - Patient Portal Instructions cp - Leadership Thank You Letter cp Prescriptions: - Zofran 4 mg Oral Tablet - take 1 tablet ORAL route every 12 hours As needed; 20 tablet; Refills: 0, cp Product Selection Permitted Signatures: Dispatcher [employer] EDMS Justus Neil PA PA cp Carlos Eduardo Olivera RN RN bp Anika Simons RN RN cm10 Corrections: (The following items were deleted from the chart) 21:53 19:40 IV Saline Lock ordered. cp bp
[2023-02-11 02:22] VITALS: TEMP 97.9
[2023-02-11 02:25] VITALS: BP 178/85; O2SAT 98
== END 2023-02-11 00:03 | disposition home or self-care (01) ==
LOC: ER 19:05
DX: R10.30 Lower abdominal pain, unspecified (principal); R11.0 Nausea; I11.9 Hypertensive heart disease without heart failure; Z21 Asymptomatic human immunodeficiency virus [HIV] infection status; Z88.1 Allergy status to other antibiotic agents; Z88.2 Allergy status to sulfonamides; Z88.8 Allergy status to other drugs, medicaments and biological substances
CPT/HCPCS: 85025; 81001; 36415; 83690; 80053; 96372; 99284; J2550

== ENCOUNTER 2023-02-26 12:37 | Emergency (ER) | payer OTHER ==
--- OUTSIDE RECORDS SUMMARY | 2023-02-26 12:58 | XMS REPORT | Continuity of Care Document ---
:1955 Author Organization [facility] t Address [address] [facility] [address] [place] [address] Support Name Relationship Address Phone MATHEUS MUNIZ Unavailable [address] [facility] [phone] [address] [place] [address] JERMAINE BHARAT SP Unavailable JOSE MUNIZ CH [address] [facility] [phone] [place] [address] UNK, UNK SELF . [phone] . RABIA MUNIZ DA X [phone] . [place] [address] NONE, GIVEN OT X [phone] [place] [address] Bharat Dean Spouse [address] [place] [address] Jose Dean Daughter Unavailable [phone] Jose Muniz Child [address] [facility] [place] [address] Bharat Dean Spouse [id number] [place] [address] Bharat Dean Spouse [address] [facility] [address] [place] [address] JOSE MUNIZ Relative [address] [facility] Unavaila ble [address] [place] [address] BHARAT DAEN Spouse [address] Unavailable [place] [id number] BHARAT DEAN RAY X [address] [facility] [address] [place] [address] Ray Bharat Dean Spouse [address] [facility] [address] [phone] [place] [address] Care Team Providers Name Role Phone Urmila [...] Attending Clinician PAULETTE GRAY Attending Clinician Unavailable Tera Galvanya S Attending Clinician UNKNOWN, ATTENDING Attending Clinician Unavailable Robbi Bal Attending Clinician [facility] Attending Clinician Unavailable Isaias Whiteside RN Attending Clinician Unavailable TOMY MARIE Attending Clinician Unavailable Reilly Means MD Attending Clinician Ofe Shields MD Attending Clinician Tomy Marie MD Attending Clinician Doctor Unassigned, [place] Attending Clinician Unavailable CHARITY MCALLISTER Attending Clinician Unavailable Charity Mcallister MD Attending Clinician GADIEL KOEHLER Attending Clinician Unavailable Mike Lund Attending Clinician Unavailable NIKOLAI REEVES Attending Clinician Unavailable Eliseo Arce MD Attending Clinician Carol Ann IZQUIERDO, Sarai Lieberman Attending Clinician [phone] Ashly Pelletier MA Attending Clinician Unavailable Dagoberto Bass MD Attending Clinician [place] Evangelista Attending Clinician Lab, [facility] Pob I Attending Clinician Unavailable Monica Rodas MA Attending Clinician Unavailable Agustina Ortiz MA Attending Clinician Unavailable Andrez RAMIREZ, Rody Attending Clinician Unavailable Remigio JENKINS, Kirit Barnes Attending Clinician [place] Attending Clinician Unavailable Caridad HOTEL MAINTENANCE ENGINEER, Gloria Attending Clinician Xiao RN, Michael Corbin Attending Clinician Unavailable Team, [facility] Attending Clinician UnavailDO PORSHA Newell Attending Clinician Unavailable Gadiel Koehler MD Attending Clinician Tyrone JENKINS, Eveline Sierra Attending Clinician Stanislav RAMIREZ, Eladio Inman Attending Clinician Unavailable Geraldine SALGUERO, Leyda Attending Clinician [phone] Selvin RAMIREZ, Stefanie Attending Clinician Unavailable Bill COLES Admitting Clinician Unavailable HOME MATTHEWS Admitting Clinician Unavailable ANETTE OLEA Admitting Clinician Unavailable TOMY MARIE Admitting Clinician Unavailable Frank JENKINS, Tomy Admitting Clinician Lele Rahman Admitting Clinician Unavailable Mike Lund Admitting Clinician Unavailable ELISEO ARCE Admitting Clinician Unavailable DO PORSHA STREETER Admitting Clinician Unavailable Payers Payer Name Policy Type Policy Number Effective Date Expiration Date S gabino [facility] COMMUNITY PLAN [id number] 2012 STAR PLUS OON 00:00:00 [facility] [id number] 2019 DUAL COMPLETE HMO 00:00:00 [facility] STAR [id number] 2019 PLUS 00:00:00 [facility] [id number] 2019 [facility] [place] STAR 00:00:00 [employer] MEDICARE ADV [id number] 2019 2019 00:00:00 00:00:00 Problems Condition Condition Condition Status Onset Resolution Last Treating Co mments Source Name Details Category Date Date Treatment Clinician Date Dyspnea, Dyspnea, Disease Active Unive rs unspecifie unspecifie 02-11 it y of d type d type 00:00: [place] [address] Medical Branch Gastropare Gastropare Disease Active Overview : Methodi sis sis 4-[address] 00:[facility] note l might be different from the original. Added automatic ally from request for surgery [id number] Dysphagia Dysphagia Disease Active Overview: Methodi 4-[address] 00:00: [facility] 00 note l might be different from the original. 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 2020-10-15 Memoria PVI PVI 3-30 17:07:00 l ABLATION ABLATION 00:00: Patel n W/ CARTO / W/ CARTO / 00 GA / T GA / T Active 08/19/2020 [facility] Food Food Disease Active [...] 2014-05 Univers 0-03 ity of 00:00: [place] 00 Medical Branch Hypovolemi Hypovolemi Disease Active 2014-05 [...] [facility] hoxazole - Clear 00:00: Garcia [facility] trimetho DA Active SV [facility] prim - Clear 00:00: Garcia [facility] codeine DA Active SV N/V HCA - Clear 00:00: Garcia [facility] Metoclop Propensi Active UT ramide ty to 12-12 Health adverse 00:00: reaction 00 s BUTORPHA DRUG Active Unknown-Cmnt Un matt NOL INGREDI 11-25 ity of 00:00: [place] [facility] Branch Butorpha Drug Active Unknown - Unive rs nol Allergy See comments 11-25 ity of 00:00: [facility] Branch Sulfamet Propensi Active UT [...] 2017- Univers INGREDI 2- ity of 00:00: [place] [facility] TRIMETHO DRUG Active Hives Univers PRIM INGREDI 2 ity of 00:00: [place] Medical [facility] Fentanyl Drug Active Other - [...] s Branch BUTORPHA DRUG Active High Hallucinates 2010- Un matt NOL INGREDI 2-14 ity of [...] Stop Date Source Natural father Diabetes [facility] Natural father Other - see comments [facility] Natural father [facility] Hy[facility] father [facility] Social History Social Habit Start Date Stop Date Quantity Comments Source Gender identity [facility] [place] [facility] History SDOH [facility] Alcohol Frequency Hospita l History SDOH [facility] Std Drinks Hospit al History SDKY [facility] Sexual orientation [facility] History of Social 2022-08-26 2022-08-[address] function 00:00:00 00:00:00 Hospital Exposure to 2022-04-30 2022-05-10 Yes University of SARS-CoV-2 (event) 00:00:00 10:25:00 [facility] Tobacco use and 2022-02-11 2022-02-11 Former smokeless Uni versity of exposure 00:00:00 00:00:00 tobacco user [facility] Tobacco Comment 2022-02-11 2022-02-11 Smokes approx 1-2 Un iversity of 00:00:00 00:00:00 cigarettes per [facility] day when she Branch smokes Alcohol intake 2020-12-08 2020-12-08 Current drinker [facility] dist 00:00:00 00:00:00 of [facility] (finding) Cigarettes smoked 2020-09-05 2020-09-[address] current (pack per 00:00:00 00:00:00 [facility] l day) - Reported Cigarette 2020-09-05 2020-09-05 Cong[facility]ational pack-years 00:00:00 00:00:00 Hospital Alcohol Comment 2016-09-23 2016-09-23 rare [facility]ational 00:00:00 00:00:00 Hospital History of tobacco 2011-09-29 User of smokeless University of use 00:00:00 tobacco [facility] Sex Assigned At [birth year] [facility] 00:00:00 00:00:00 Smoking Status Start Date Stop Date Source Ex-smoker 2022-02-11 00:00:00 2022-02-11 00:00:00 [facility] Medical Branch Medications Ordered Filled Start Stop Current Ordering Indication Dosage Frequency Signature Comments Components Source Medication Medication Date Date Medication? Clinician (SIG) Name Name ondansetron 2022- No 4mg 4 mg, Slow Univers (ZOFRAN 01-28 IV Push, ity of (PF)) 00:15: 23:13 ONCE, 1 [place] injection 4 00 :00 dose, On Medi porfirio mg [facility] 01/27/23 Branch at 191, JOE KCL 2022- No 40meq 40 mEq, Univers (KLOR-CON 01-28 Oral, ity of M20) tablet 00:15: 23:13 [place]CE[place] 1 [place] 40 mEq 00 :00 dose, On [facility] 01/27/23 Branch at 191, Routine dicyclomine 2022- No 20mg 20 mg, Uni vers (BENTYL) 01-28 Oral, ity of tablet 20 00:15: 23:13 ONCE, 1 [place] mg 00 :00 dose, On [facility] 01/27/23 Branch at 191, Routine NaCl 0.9% 2022- No 1000mL at 999 Uni vers (NS) bolus 01-27 mL/hr, ity of infusion 23:00: 23:59 1,000 mL, [place] 1,000 mL 00 :00 IV Medical Infusion, Branch ONCE, 1 dose, On [facility] 01/27/23 at 1800, STAT ondansetron 2022- No 4mg 4 mg, Slow Univers (ZOFRAN 01-27 IV Push, ity of (PF)) 21:00: 21:10 ONCE, 1 [place] injection 4 00 :00 dose, On Medi porfirio mg [facility] 01/27/23 Branch at 1600, JOE morpHINE (4 2022- No 4mg 4 mg, Slow Univers mg/mL) 01-27 IV Push, ity of injection 4 21:00: 21:15 [place]CE[place] 1 [place] mg 00 :00 dose, On [facility] 01/27/23 Branch at 1600, STAT iopamidol 2022- No [id number] 70mL 70 mL, U nivers (ISOVUE 01-27 Intravenou ity o f 370-500 mL) 20:44: 20:45 s, ONCE, 1 [place] injection 00 :00 dose, On Medica l 70 mL [facility] 01/27/23 Branch at 1600, Routine hydralAZINE 0 2022- No 10mg 10 mg, Uni vers (APRESOLINE 01-27 Slow IV ity of ) injection 20:00: 21:10 [place] 10 mg 00 :00 ONCE, 1 Medical dose, On Branch [facility] 01/27/23 at 1500, JOE ondansetron 2022-0 Yes [id number] 4mg Take 1 Univers 4 mg 01-27 tablet by ity of disintegrat 00:00: mouth [place] ing tablet 00 every 8 Medica l (eight) Branch hours as needed for Nausea and Vomiting (N/V). dicyclomine 0 Yes [id number] 20mg Take 1 Univers 20 mg - tablet by ity of tablet 00:00: mouth 4 [place] 00 (four) Medical times Branch daily. emtricitabi 0 Yes [id number] Take one Univers ne-tenofovi 6-12 po daily ity of r alafen 00:00: [place] (DESCOVY) 00 Medical tablet Branch raltegravir 0 Yes [id number] 400mg Take 1 Univers (ISENTRESS) 6-12 tablet by ity of 400 mg 00:00: mouth in [place] tablet 00 the Medical morning Branch and 1 tablet in the evening. emtricitabi 2022-0 Yes [id number] Take one Univers ne-tenofovi 6-12 po daily ity of r alafen 00:00: [place] (DESCOVY) 00 Medical tablet Branch raltegravir 2022-0 Yes [id number] 400mg Take 1 Univers (ISENTRESS) 6-12 tablet by ity of 400 mg 00:00: mouth in [place] tablet 00 the Medical morning Branch and 1 tablet in the evening. emtricitabi 2022-0 Yes [id number] Take one Univers ne-tenofovi 6-12 po daily ity of r alafen 00:00: [place] (DESCOVY) 00 Medical tablet Branch raltegravir 2022-0 Yes [id number] 400mg Take 1 Univers (ISENTRESS) 6-12 tablet by ity of 400 mg 00:00: mouth in [place] tablet 00 the Medical morning Branch and 1 tablet in the evening. DESCOVY 2022-0 Yes [id number] Take one Univers tablet 5-08 po daily ity of 00:00: [place] 00 Medical Branch raltegravir 2022-0 Yes [id number] 400mg Take 1 Univers (ISENTRESS) 5-08 tablet by ity of 400 mg 00:00: mouth in [place] tablet 00 the Medical morning Branch and 1 tablet in the evening. DESCOVY 2022- No [id number] Take one Univers tablet 5-08 06-12 po daily ity of 00:00: 00:00 [place] 00 :00 Medical Branch raltegravir 0 2022- No [id number] 400mg Take 1 Univers (ISENTRESS) 5-08 -12 tablet by it y of 400 mg 00:00: 00:00 mouth in [place] tablet 00 :00 the Medical morning Branch and 1 tablet in the evening. emtricitabi 2022-0 Yes [id number] Take one Univers ne-tenofovi 4-04 po daily ity of r alafen 00:00: [place] (DESCOVY) 00 Medical tablet Branch emtricitabi 2022-0 Yes [id number] Take one Univers ne-tenofovi 4-04 po daily ity of r alafen 00:00: [place] (DESCOVY) 00 Medical tablet Branch emtricitabi 0 2022- No [id number] Take one Univers ne-tenofovi 4-04 05-08 po [...] 400) tablet 00 :00 dose, On Medi profirio 800 mg [facility] 05/10/22 at 1400, Routine KCL 2021-05 No 40meq 40 mEq, Univers (KLOR-CON 07-11 Oral, ity of M20) tablet 19:15: 19:37 [place]CE[place] 1 [place] 40 mEq 00 :00 dose, On Medical [facility] 05/10/22 at 1315, JOE hydralAZINE 2021-05 No 10mg 10 mg, Uni vers (APRESOLINE 07-11 Slow IV ity of ) injection 18:45: 18:42 [place], [place] 10 mg 00 :00 ONCE, 1 Medical dose, On [facility] 05/10/22 at 1245, JOE NaCl 0.9% 2021-05 No 1000mL at 999 Uni vers (NS) bolus 07-11 mL/hr, ity of infusion 17:45: 20:00 1,000 mL, [place] 1,000 mL 00 :00 IV Medical Infusion, Branch ONCE, 1 dose, On [facility] 05/10/22 at 1145, JOE cefpodoxime 2021-05- No [id number] 100mg Take 1 Univers 100 mg 2-17 12-25 tablet by ity of tablet 00:00: 05:59 mouth in [place] 00 :00 the [facility] and 1 tablet in the evening. Do all this for 7 days. cefpodoxime 2021-05- No [id number] 100mg Take 1 Univers 100 mg 2-17 12-25 tablet by ity of tablet 00:00: 05:59 mouth in [place] 00 :00 the [facility] and 1 tablet in the evening. Do all this for 7 days. cefpodoxime 2021-05- No [id number] 100mg Take 1 Univers 100 mg 2-17 12-25 tablet by ity of tablet 00:00: 05:59 mouth in [place] 00 :00 the [facility] and 1 tablet in the evening. Do all this for 7 days. butalbital- 2021-05- No 1{tbl} 1 tablet, Univers acetaminoph 16 12-15 Oral, ity of en-caff 00:15: 23:19 ONCE, 1 [place] (ESGIC) 00 :00 dose, On [place] [id number] [place] Branch mg tablet 1 05/06/22 tablet [...] :00 ONCE, 1 Medical dose, On Branch [facility] 05/06/22 at 1600, JOE NaCl [...] 05/06/22 at 1515, JOE ondansetron 2021-05 Yes [id number] 1-2 U nivers 4 mg tablet 2-15 tablets ity o f 00:00: every 8 [place] 00 hours as Medical needed for Branch nausea benzonatate 2021-05 Yes [id number] 200mg Take 1 Univers 200 mg 2-15 capsule by ity of capsule 00:00: mouth 3 [place] 00 (three) Medical times Branch daily as needed for Cough. albuterol 2021-05 Yes [id number] 2{puff} Inhale 2 Univers 90 2-15 Puffs ity of mcg/actuati 00:00: every 4 [place] on inhaler 00 (four) Medical hours as Branch needed for Wheezing or Shortness of Breath. butalbital- 2021-05 Yes [id number] 1{tbl} Take 1 Univers acetaminoph 2-15 tablet by ity of en-caff 00:00: mouth [place] 50-325-40 00 every 4 Medical mg tablet (four) Branch hours as needed (headache) . ondansetron 2021-05 Yes [id number] 1-2 U nivers 4 mg tablet 2-15 tablets ity o f 00:00: every 8 [place] 00 hours as Medical needed for Branch nausea benzonatate 2021-05 Yes [id number] 200mg Take 1 Univers 200 mg 2-15 capsule by ity of capsule 00:00: mouth 3 [place] 00 (three) Medical times Branch daily as needed for Cough. albuterol 2021-05 Yes [id number] 2{puff} Inhale 2 Univers 90 2-15 Puffs ity of mcg/actuati 00:00: every 4 [place] on inhaler 00 (four) Medical hours as Branch needed for Wheezing or Shortness of Breath. butalbital- 2021-05 Yes [id number] 1{tbl} Take 1 Univers acetaminoph 2-15 tablet by ity of en-caff 00:00: mouth [place] 50-325-40 00 every 4 Medical mg tablet (four) Branch hours as needed (headache) . ondansetron 2021-05 Yes [id number] 1-2 U nivers 4 mg tablet 2-15 tablets ity o f 00:00: every 8 [place] 00 hours as Medical needed for Branch nausea benzonatate 2021-05 Yes [id number] 200mg Take 1 Univers 200 mg 2-15 capsule by ity of capsule 00:00: mouth 3 [place] 00 (three) Medical times Branch daily as needed for Cough. albuterol 2021-05 Yes [id number] 2{puff} Inhale 2 Univers 90 2-15 Puffs ity of mcg/actuati 00:00: every 4 [place] on inhaler 00 (four) Medical hours as Branch needed for Wheezing or Shortness of Breath. butalbital- 2021-05 Yes [id number] 1{tbl} Take 1 Univers acetaminoph 2-15 tablet by ity of en-caff 00:00: mouth [place] 50-325-40 00 every 4 Medical mg tablet (four) Branch hours as needed (headache) . ondansetron 2021-05 Yes [id number] 1-2 U nivers 4 mg tablet 2-15 tablets ity o f 00:00: every 8 [place] 00 hours as Medical needed for Branch nausea benzonatate 2021-05 Yes [id number] 200mg Take 1 Univers 200 mg 2-15 capsule by ity of capsule 00:00: mouth 3 [place] 00 (three) Medical times Branch daily as needed for Cough. albuterol 2021-05 Yes [id number] 2{puff} Inhale 2 Univers 90 2-15 Puffs ity of mcg/actuati 00:00: every 4 [place] on inhaler 00 (four) Medical hours as Branch needed for Wheezing or Shortness of Breath. butalbital- 2021-05 Yes [id number] 1{tbl} Take 1 Univers acetaminoph 2-15 tablet by ity of en-caff 00:00: mouth [place] 50-325-40 00 every 4 Medical mg tablet (four) Branch hours as needed (headache) . ondansetron 2021-05 Yes [id number] 1-2 U nivers 4 mg tablet 2-15 tablets ity o f 00:00: every 8 [place] 00 hours as Medical needed for Branch nausea benzonatate 2021-05 Yes [id number] 200mg Take 1 Univers 200 mg 2-15 capsule by ity of capsule 00:00: mouth 3 00 (three) Medical times Branch daily as needed for Cough. albuterol 2021-05 Yes [id number] 2{puff} Inhale 2 Univers 90 2-15 Puffs ity of mcg/actuati 00:00: every 4 [place] on inhaler 00 (four) Medical hours as Branch needed for Wheezing or Shortness of Breath. butalbital- 2021-05 Yes [id number] 1{tbl} Take 1 Univers acetaminoph 2-15 tablet by ity of en-caff 00:00: mouth [place] 50-325-40 00 every 4 Medical mg tablet (four) Branch hours as needed (headache) . ondansetron 2021-05 Yes [id number] 1-2 U nivers 4 mg tablet 2-15 tablets ity o f 00:00: every 8 [place] 00 hours as Medical needed for Branch nausea benzonatate 2021-05 Yes [id number] 200mg Take 1 Univers 200 mg 2-15 capsule by ity of capsule 00:00: mouth 3 [place] 00 (three) Medical times Branch daily as needed for Cough. albuterol 2021-05 Yes [id number] 2{puff} Inhale 2 Univers 90 2-15 Puffs ity of mcg/actuati 00:00: every 4 [place] on inhaler 00 (four) Medical hours as Branch needed for Wheezing or Shortness of Breath. butalbital- 2021-05 Yes [id number] 1{tbl} Take 1 Univers acetaminoph 2-15 tablet by ity of en-caff 00:00: mouth [place] 50-325-40 00 every 4 Medical mg tablet (four) Branch hours as needed (headache) . ondansetron 2021-05 Yes [id number] 1-2 U nivers 4 mg tablet 2-15 tablets ity o f 00:00: every 8 [place] 00 hours as Medical needed for Branch nausea benzonatate 2021-05 Yes [id number] 200mg Take 1 Univers 200 mg 2-15 capsule by ity of capsule 00:00: mouth 3 (three) Medical times Branch daily as needed for Cough. albuterol 2021-05 Yes [id number] 2{puff} Inhale 2 Univers 90 2-15 Puffs ity of mcg/actuati 00:00: every 4 [place] on inhaler 00 (four) Medical hours as Branch needed for Wheezing or Shortness of Breath. butalbital- 2021-05 Yes [id number] 1{tbl} Take 1 Univers acetaminoph 2-15 tablet by ity of en-caff 00:00: mouth [place] 50-325-40 00 every 4 Medical mg tablet (four) Branch hours as needed (headache) . ondansetron 2021-05 Yes [id number] 1-2 U nivers 4 mg tablet 2-15 tablets ity o f 00:00: every 8 [place] 00 hours as Medical needed for Branch nausea benzonatate 2021-05 Yes [id number] 200mg Take 1 Univers 200 mg 2-15 capsule by ity of capsule 00:00: mouth 3 00 (three) Medical times Branch daily as needed for Cough. albuterol 2021-05 Yes [id number] 2{puff} Inhale 2 Univers 90 2-15 Puffs ity of mcg/actuati 00:00: every 4 [place] on inhaler 00 (four) Medical hours as Branch needed for Wheezing or Shortness of Breath. butalbital- 2021-05 Yes [id number] 1{tbl} Take 1 Univers acetaminoph 2-15 tablet by ity of en-caff 00:00: mouth [place] 50-325-40 00 every 4 Medical mg tablet (four) Branch hours as needed (headache) . ondansetron 2021-05 Yes [id number] 1-2 U nivers 4 mg tablet 2-15 tablets ity o f 00:00: every 8 [place] 00 hours as Medical needed for Branch nausea benzonatate 2021-05 Yes [id number] 200mg Take 1 Univers 200 mg 2-15 capsule by ity of capsule 00:00: mouth 3 [place] 00 (three) Medical times Branch daily as needed for Cough. albuterol 2021-05 Yes [id number] 2{puff} Inhale 2 Univers 90 2-15 Puffs ity of mcg/actuati 00:00: every 4 [place] on inhaler 00 (four) Medical hours as Branch needed for Wheezing or Shortness of Breath. butalbital- 2021-05 Yes [id number] 1{tbl} Take 1 Univers acetaminoph 2-15 tablet by ity of en-caff 00:00: mouth [place] 50-325-40 00 every 4 Medical mg tablet (four) Branch hours as needed (headache) . ondansetron 2021-05 Yes [id number] 1-2 U nivers 4 mg tablet 2-15 tablets ity o f 00:00: every 8 [place] 00 hours as Medical needed for Branch nausea benzonatate 2021-05 Yes [id number] 200mg Take 1 Univers 200 mg 2-15 capsule by ity of capsule 00:00: mouth 3 [place] 00 (three) Medical times Branch daily as needed for Cough. albuterol 2021-05 Yes [id number] 2{puff} Inhale 2 Univers 90 2-15 Puffs ity of mcg/actuati 00:00: every 4 [place] on inhaler 00 (four) Medical hours as Branch needed for Wheezing or Shortness of Breath. butalbital- 2021-05 Yes [id number] 1{tbl} Take 1 Univers acetaminoph 2-15 tablet by ity of en-caff 00:00: mouth [place] 50-325-40 00 every 4 Medical mg tablet (four) Branch hours as needed (headache) . ondansetron 2021-05 Yes [id number] 1-2 U nivers 4 mg tablet 2-15 tablets ity o f 00:00: every 8 [place] 00 hours as Medical needed for Branch nausea benzonatate 2021-05 Yes [id number] 200mg Take 1 Univers 200 mg 2-15 capsule by ity of capsule 00:00: mouth 3 [place] 00 (three) Medical times Branch daily as needed for Cough. albuterol 2021-05 Yes [id number] 2{puff} Inhale 2 Univers 90 2-15 Puffs ity of mcg/actuati 00:00: every 4 [place] on inhaler 00 (four) Medical hours as Branch needed for Wheezing or Shortness of Breath. butalbital- 2021-05 Yes [id number] 1{tbl} Take 1 Univers acetaminoph 2-15 tablet by ity of en-caff 00:00: mouth [place] 50-325-40 00 every 4 Medical mg tablet (four) Branch hours as needed (headache) . ondansetron 2021-05 Yes [id number] 1-2 U nivers 4 mg tablet 2-15 tablets ity o f 00:00: every 8 [place] 00 hours as Medical needed for Branch nausea benzonatate 2021-05 Yes [id number] 200mg Take 1 Univers 200 mg 2-15 capsule by ity of capsule 00:00: mouth 3 [place] 00 (three) Medical times Branch daily as needed for Cough. albuterol 2021-05 Yes [id number] 2{puff} Inhale 2 Univers 90 2-15 Puffs ity of mcg/actuati 00:00: every 4 [place] on inhaler 00 (four) Medical hours as Branch needed for Wheezing or Shortness of Breath. butalbital- 2021-05 Yes [id number] 1{tbl} Take 1 Univers acetaminoph 2-15 tablet by ity of en-caff 00:00: mouth [place] 50-325-40 00 every 4 Medical mg tablet (four) Branch hours as needed (headache) . nirmatrelvi 2021-05- No [id number] 2{tbl} Take 2 Univers r-ritonavir 2-15 12-21 tablets by i ty of (PAXLOVID, 00:00: 05:59 mouth in [place] [facility],) 300 00 :00 the Medical mg (150 mg morning Branch x 2)-100 mg and 2 tablet tablets in the evening. Do all this for 5 days. [facility] 2021-05- No [id number] 2{tbl} Take 2 Univers r-ritonavir 2-15 12-21 tablets by i ty of (PAXLOVID, 00:00: 05:59 mouth in Te [facility],) 300 00 :00 the Medical mg (150 mg morning Branch x 2)-100 mg and 2 tablet tablets in the evening. Do all this for [facility]. [facility] No [id number] 2{tbl} Take 2 Univers r-ritonavir 2-15 12-21 tablets by i ty of (PAXLOVID, 00:00: 05:59 mouth in [place] [facility],) 300 00 :00 the Medical mg (150 mg morning Branch x 2)-100 mg and 2 tablet tablets in the evening. Do all this for 5 days. [facility] 2021-05- No [id number] 2{tbl} Take 2 Univers r-ritonavir 2-15 12-21 tablets by i ty of (PAXLOVID, 00:00: 05:59 mouth in [facility],) 300 00 :00 the Medical mg (150 mg morning Branch x 2)-100 mg and 2 tablet tablets in the evening. Do all this for 5 days. ondansetron 2021-05- No 4mg 4 mg, [facility] (ZOFRAN-ODT 06-23 Oral, ity of ) 22:45: 21:53 ONCE, 1 [place] disintegrat 00 :00 dose, On Medi porfirio ing tablet [place] 4 mg 04/22/22 at 1645, Routine amoxicillin 2021-05 Yes [id number] 1{tbl} Take 1 Univers -clavulanat 2- 421973 tablet by i ty of e [id number] 00:00: mouth [place] mg per 00 every 12 Medical tablet (twelve) Branch hours. ondansetron 2021-05 Yes [id number] 4mg Take 1 [facility] 4 mg 2- 680715 tablet by ity of disintegrat 00:00: mouth [place] ing tablet 00 every 8 Medica l (eight) Branch hours as needed for Nausea and Vomiting (N/V). amoxicillin 2021-05 Yes [id number] 1{tbl} Take 1 [facility] -clavulanat 2-01 [id number] tablet by i ty of e 875-125 00:00: mouth [place] mg per 00 every 12 Medical tablet (twelve) Branch hours. ondansetron 2021-05 Yes [id number] 4mg Take 1 [facility] 4 mg 2-01 [id number] tablet by ity of disintegrat 00:00: mouth [place] ing tablet 00 every 8 Medica l (eight) Branch hours as needed for Nausea and Vomiting (N/V). amoxicillin 2021-05 Yes [id number] 1{tbl} Take 1 [facility] -clavulanat 2-01 [id number] tablet by i ty of e 875-125 00:00: mouth [place] mg per 00 every 12 Medical tablet (twelve) Branch hours. ondansetron 2021-05 Yes [id number] 4mg Take 1 [facility] 4 mg 2- [id number] tablet by ity of disintegrat 00:00: mouth [place] ing tablet 00 every 8 Medica l (eight) Branch hours as needed for Nausea and Vomiting (N/V). amoxicillin 2021-05 Yes [id number] 1{tbl} Take 1 [facility] -clavulanat 2-01 [id number] tablet by i ty of e 875-125 00:00: mouth [place] mg per 00 every 12 Medical tablet (twelve) Branch hours. ondansetron 2021-05 Yes [id number] 4mg Take 1 [facility] 4 mg 2-01 [id number] tablet by ity of disintegrat 00:00: mouth [place] ing tablet 00 every 8 Medica l (eight) Branch hours as needed for Nausea and Vomiting (N/V). amoxicillin 2021-05 Yes [id number] 1{tbl} Take 1 [facility] -clavulanat 2-01 [id number] tablet by i ty of e 875-125 00:00: mouth [place] mg per 00 every 12 Medical tablet (twelve) Branch hours. ondansetron 2021-05 Yes [id number] 4mg Take 1 [facility] 4 mg 2-01 [id number] tablet by ity of disintegrat 00:00: mouth [place] ing tablet 00 every 8 Medica l (eight) Branch hours as needed for Nausea and Vomiting (N/V). amoxicillin 2021-05 Yes [id number] 1{tbl} Take 1 [facility] -clavulanat 2-01 [id number] tablet by i ty of e 875-125 00:00: mouth [place] mg per 00 every 12 Medical tablet (twelve) Branch hours. ondansetron 2021-05 Yes [id number] 4mg Take 1 [facility] 4 mg 2- [id number] tablet by ity of disintegrat 00:00: mouth [place] ing tablet 00 every 8 Medica l (eight) Branch hours as needed for Nausea and Vomiting (N/V). amoxicillin 2021-05 Yes [id number] 1{tbl} Take 1 [facility] -clavulanat 2-01 [id number] tablet by i ty of e 875-125 00:00: mouth [place] mg per 00 every 12 Medical tablet (twelve) Branch hours. ondansetron 2021-05 Yes [id number] 4mg Take 1 [facility] 4 mg 2- [id number] tablet by ity of disintegrat 00:00: mouth [place] ing tablet 00 every 8 Medica l (eight) Branch hours as needed for Nausea and Vomiting (N/V). amoxicillin 2021-05 Yes [id number] 1{tbl} Take 1 [facility] -clavulanat 2-01 [id number] tablet by i ty of e 875-125 00:00: mouth [place] mg per 00 every 12 Medical tablet (twelve) Branch hours. ondansetron 2021-05 Yes [id number] 4mg Take 1 [facility] 4 mg 2- [id number] tablet by ity of disintegrat 00:00: mouth [place] ing tablet 00 every 8 Medica l (eight) Branch hours as needed for Nausea and Vomiting (N/V). amoxicillin 2021-05 Yes [id number] 1{tbl} Take 1 [facility] -clavulanat 2-01 [id number] tablet by i ty of e 875-125 00:00: mouth [place] mg per 00 every 12 Medical tablet (twelve) Branch hours. ondansetron 2021-05 Yes [id number] 4mg Take 1 [facility] 4 mg 2-01 [id number] tablet by ity of disintegrat 00:00: mouth [place] ing tablet 00 every 8 Medica l (eight) Branch hours as needed for Nausea and Vomiting (N/V). amoxicillin 2021-05 Yes [id number] 1{tbl} Take 1 [facility] -clavulanat 2-01 [id number] tablet by i ty of e 875-125 00:00: mouth [place] mg per 00 every 12 Medical tablet (twelve) Branch hours. ondansetron 2021-05 Yes [id number] 4mg Take 1 [facility] 4 mg 2-01 [id number] tablet by ity of disintegrat 00:00: mouth [place] ing tablet 00 every 8 Medica l (eight) Branch hours as needed for Nausea and Vomiting (N/V). amoxicillin 2021-05 Yes [id number] 1{tbl} Take 1 [facility] -clavulanat 2-01 [id number] tablet by i ty of e 875-125 00:00: mouth [place] mg per 00 every 12 Medical tablet (twelve) Branch hours. ondansetron 2021-05 Yes [id number] 4mg Take 1 [facility] 4 mg 2- [id number] tablet by ity of disintegrat 00:00: mouth [place] ing tablet 00 every 8 Medica l (eight) Branch hours as needed for Nausea and Vomiting (N/V). amoxicillin 2021-05 Yes [id number] 1{tbl} Take 1 [facility] -clavulanat 2-01 [id number] tablet by i ty of e 875-125 00:00: mouth [place] mg per 00 every 12 Medical tablet (twelve) Branch hours. ondansetron 2021-05 Yes [id number] 4mg Take 1 [facility] 4 mg 2- [id number] tablet by ity of disintegrat 00:00: mouth [place] ing tablet 00 every 8 Medica l (eight) Branch hours as needed for Nausea and Vomiting (N/V). amoxicillin 2021-05 Yes [id number] 1{tbl} Take 1 [facility] -clavulanat 2-01 [id number] tablet by i ty of e 875-125 00:00: mouth [place] mg per 00 every 12 Medical tablet (twelve) Branch hours. ondansetron 2021-05 Yes [id number] 4mg Take 1 [facility] 4 mg 2-01 [id number] tablet by ity of disintegrat 00:00: mouth [place] ing tablet 00 every 8 Medica l (eight) Branch hours as needed for Nausea and Vomiting (N/V). amoxicillin 2021-05 Yes [id number] 1{tbl} Take 1 [facility] -clavulanat 2-01 [id number] tablet by i ty of e 875-125 00:00: mouth [place] mg per 00 every 12 Medical tablet (twelve) Branch hours. ondansetron 2021-05 Yes [id number] 4mg Take 1 [facility] 4 mg 06-23 [id number] tablet by ity of disintegrat 00:00: mouth [place] ing tablet 00 every 8 Medica l (eight) Branch hours as needed for Nausea and Vomiting (N/V). zoster 2021-05- No [id number] .5mL 0.5 mL by [facility] vaccine, 0- 9104 Intr[facility] ity of recombinant 00:00: 04:59 lar route [place] (SHINGRIX, 00 :00 once now Medic al PF,) for 1 Branch injection dose. And repeat in 2-6 months zoster 2021-05- No [id number] .5mL 0.5 mL by [facility] vaccine, 0-05 03- 9104 Intramuscu ity of recombinant 00:00: 04:59 lar route [place] (SHINGRIX, 00 :00 once now Medic al PF,) for 1 Branch injection dose. And repeat in 2-6 months zoster 2021-05- No [id number] .5mL 0.5 mL by [facility] vaccine, 0- [...] o f 1 mg tablet 19:28: at [place] [address] bedtime. Medical Branch traZODone 2021-0 Yes 50mg Take 50 mg Un amtt 100 mg 9-27 by mouth ity of tablet 19:28: at [place] [address] bedtime. Medical Branch hydralAZINE 2021-0 Yes 25mg [...] o f 1 mg tablet 19:28: at [place] [address] bedtime. Medical Branch traZODone 2021-0 Yes 50mg Take 50 mg Un matt 100 mg 9-27 by mouth ity of tablet 19:28: at [place] [address] bedtime. Medical Branch hydralAZINE 2021-0 Yes 25mg [...] 19:28: daily. tablet 04 Medical Branch clonazePAM 0 Yes 1mg Take 1 mg Un matt (KLONOPIN) 9-27 by mouth ity o f 1 mg tablet 19:28: at [place] [address] bedtime. Medical Branch traZODone 2021-0 Yes 50mg Take 50 mg Un matt 100 mg 9-27 by mouth ity of tablet 19:28: at [place] [address] bedtime. Medical Branch hydralAZINE 2021-0 Yes 25mg [...] [place] tablet 04 Medical Branch clonazePAM 0 Yes 1mg Take 1 mg Un matt (KLONOPIN) 9-27 by mouth ity o f 1 mg tablet 19:28: at [place] [address] bedtime. Medical Branch traZODone 2021-0 Yes 50mg Take 50 mg Un matt 100 mg 9-27 by mouth ity of tablet 19:28: at [place] [address] bedtime. Medical Branch hydralAZINE 0 Yes 25mg [...] o f 1 mg tablet 19:28: at [place] [address] bedtime. Medical Branch traZODone 2021-0 Yes 50mg Take 50 mg Un matt 100 mg 9-27 by mouth ity of tablet 19:28: at [place] [address] bedtime. Medical Branch hydralAZINE 2021-0 Yes 25mg [...] 100 mg 04 (two) Medical tablet times [place] daily. amLODIPine 2021-0 Yes 10mg Take 10 mg U nivers (NORVASC) 9-27 by mouth ity of 10 mg 19:28: daily. [place] tablet 04 Medical Branch clonazePAM 2021-0 Yes 1mg Take 1 mg Un matt (KLONOPIN) 9- by mouth ity o f 1 mg tablet 19:28: at [place] [address] bedtime. Medical Branch traZODone 2021-0 Yes 50mg Take 50 mg Un matt 100 mg 9-27 by mouth ity of tablet 19:28: at [place] [address] bedtime. Medical Branch hydralAZINE 2021-0 Yes 25mg [...] o f 1 mg tablet 19:28: at [place] [address] bedtime. Medical Branch traZODone 2021-0 Yes 50mg Take 50 mg Un matt 100 mg 9-27 by mouth ity of tablet 19:28: at [place] [address] bedtime. Medical Branch hydralAZINE 2021-0 Yes 25mg [...] 100 mg 04 (two) Medical tablet times [place] daily. amLODIPine 2021-0 Yes 10mg Take 10 mg U nivers (NORVASC) 9-27 by mouth ity of 10 mg 19:28: daily. [place] tablet 04 Medical Branch clonazePAM 2021-0 Yes 1mg Take 1 mg Un matt (KLONOPIN) 9-27 by mouth ity o f 1 mg tablet 19:28: at [place] [address] bedtime. Medical Branch traZODone 2-0 Yes 50mg Take 50 mg Un matt 100 mg 9-27 by mouth ity of tablet 19:28: at [place] [address] bedtime. Medical Branch hydralAZINE 2021-0 Yes 25mg [...] o f 1 mg tablet 19:28: at [place] [address] bedtime. Medical Branch traZODone 2-0 Yes 50mg Take 50 mg Un matt 100 mg 9-27 by mouth ity of tablet 19:28: at [place] [address] bedtime. Medical Branch hydralAZINE 2-0 Yes 25mg [...] o f 1 mg tablet 19:28: at [place] [address] bedtime. Medical Branch traZODone 2022-0 Yes 50mg Take 50 mg Un matt 100 mg 9-27 by mouth ity of tablet 19:28: at [place] [address] bedtime. Medical Branch hydralAZINE 2-0 Yes 25mg [...] o f 1 mg tablet 19:28: at [place] [address] bedtime. Medical Branch traZODone 2021-0 Yes 50mg Take 50 mg Un matt 100 mg 9-27 by mouth ity of tablet 19:28: at [place] [address] bedtime. Medical Branch hydralAZINE 2021-0 Yes 25mg [...] o f 1 mg tablet 19:28: at [place] [address] bedtime. Medical Branch traZODone 2-0 Yes 50mg Take 50 mg Un matt 100 mg 9-27 by mouth ity of tablet 19:28: at [place] [address] bedtime. Medical Branch hydralAZINE 2021-0 Yes 25mg [...] o f 1 mg tablet 19:28: at [place] [address] bedtime. Medical Branch traZODone 2021-0 Yes 50mg Take 50 mg Un matt 100 mg 9-27 by mouth ity of tablet 19:28: at [place] [address] bedtime. Medical Branch hydralAZINE 2021-0 Yes 25mg [...] o f 1 mg tablet 19:28: at [place] [address] bedtime. Medical Branch traZODone 2021-0 Yes 50mg Take 50 mg Un matt 100 mg 9-27 by mouth ity of tablet 19:28: at [place] [address] bedtime. Medical Branch hydralAZINE 2021-0 Yes 25mg [...] o f 1 mg tablet 19:28: at [place] [address] bedtime. Medical Branch traZODone 2021-0 Yes 50mg Take 50 mg Un matt 100 mg 9-27 by mouth ity of tablet 19:28: at [place] [address] bedtime. Medical Branch hydralAZINE 2021-0 Yes 25mg [...] o f 1 mg tablet 19:28: at [place] [address] bedtime. Medical Branch traZODone 2021-0 Yes 50mg Take 50 mg Un matt 100 mg 9-27 by mouth ity of tablet 19:28: at [place] [address] bedtime. Medical Branch hydralAZINE 2021-0 Yes 25mg [...] o f 1 mg tablet 19:28: at [place] [address] bedtime. Medical Branch traZODone 2021-0 Yes 50mg Take 50 mg Un matt 100 mg 9- by mouth ity of tablet 19:28: at [place] [address] bedtime. Medical Branch hydralAZINE 2021-0 Yes 25mg [...] o f 1 mg tablet 19:28: at [place] [address] bedtime. Medical Branch traZODone 2021-0 Yes 50mg Take 50 mg Un matt 100 mg 9-27 by mouth ity of tablet 19:28: at [place] [address] bedtime. Medical Branch hydralAZINE 2021-0 Yes 25mg [...] o f 1 mg tablet 19:28: at [place] [address] bedtime. Medical Branch traZODone 2021-0 Yes 50mg Take 50 mg Un matt 100 mg 9-27 by mouth ity of tablet 19:28: at [place] [address] bedtime. Medical Branch hydralAZINE 2021-0 Yes 25mg [...] 100 mg 04 (two) Medical tablet times [place] daily. amLODIPine 2021-0 Yes 10mg Take 10 mg U nivers (NORVASC) 9-27 by mouth ity of 10 mg 19:28: daily. [place] tablet 04 Medical Branch clonazePAM 2021-0 Yes 1mg Take 1 mg Un matt (KLONOPIN) 9-27 by mouth ity o f 1 mg tablet 19:28: at [place] [address] bedtime. Medical Branch traZODone 2021-0 Yes 50mg Take 50 mg Un matt 100 mg 9-27 by mouth ity of tablet 19:28: at [place] [address] bedtime. Medical Branch hydralAZINE 2021-0 Yes 25mg Take 25 mg Univers (APRESOLINE 9-27 by mouth ity of ) 25 mg 19:28: daily. [place] tablet 04 Medical Branch lisinopril 2021-0 Yes 40mg Take 40 mg U nivers (PRINIVIL,Z 9-27 by mouth 2 it y of ESTRIL) 40 19:28: (two) [place] mg tablet 04 times [facility] daily. Branch metoprolol 2021-0 Yes 100mg Take 100 Un matt tartrate 9-27 mg by ity of (LOPRESSOR) 19:28: mouth 2 [place] 100 mg 04 (two) Medical tablet times [place] daily. amLODIPine 2021-0 Yes 10mg Take 10 mg U nivers (NORVASC) 9-27 by mouth ity of 10 mg 19:28: daily. [place] tablet 04 Medical Branch clonazePAM 2021-0 Yes 1mg Take 1 mg Un matt (KLONOPIN) 9-27 by mouth ity o f 1 mg tablet 19:28: at [place] [address] bedtime. Medical Branch traZODone 2021-0 Yes 50mg Take 50 mg Un matt 100 mg 9-27 by mouth ity of tablet 19:28: at [place] [address] bedtime. Medical Branch hydralAZINE 2021-0 Yes 25mg [...] 100 mg 04 (two) Medical tablet times [place] daily. amLODIPine Yes 10mg Take 10 mg U nivers (NORVASC) 9-27 by mouth ity of 10 mg 19:28: daily. [place] tablet 04 Medical Branch clonazePAM 0 Yes 1mg Take 1 mg Un matt (KLONOPIN) - by mouth ity o f 1 mg tablet 19:28: at [place] [address] bedtime. Medical Branch traZODone Yes 50mg Take 50 mg Un matt 100 mg - by mouth ity of tablet 19:28: at [place] [address] bedtime. Medical Branch cefpodoxime 2021- No [id number] 200mg Take 1 [facility] 200 mg 02-16 tablet by ity of tablet 00:00: 04:59 mouth in [place] 00 :00 the Medical morning Branch and 1 tablet in the evening. Do all this for 3 days. cefpodoxime 2021- No [id number] 200mg Take 1 [facility] 200 mg 02-16 tablet by ity of tablet 00:00: 04:59 mouth in [place] 00 :00 the [facility] morning Branch and 1 tablet [...] 9-24 Oral, ity of en-caff 18:46: Q6HPRN, [place] (ESGIC) 06 Starting Medical 50-325-40 on Sat Branch mg tablet 1 02/13/22 at tablet 1346, Until Discontinu ed, Routine, headaches dicyclomine Yes 10mg 10 mg, Univ ers (BENTYL) 02-13 Oral, QID, ity o f capsule 10 17:00: First dose [place] mg 00 on [facility] Medical 02/13/22 at Branch 1200, Until Discontinu ed, Routine tiZANidine Yes 4mg 4 mg, Univer s (ZANAFLEX) 02-12 Oral, Q8H, ity of tablet 4 mg 19:00: First dose [place] 00 on Tue [facility] 02/12/22 at Branch 1400, Until Discontinu ed, Routine HYDROmorpho Yes 4mg 4 mg, Unive rs ne 02-12 Oral, ity of (DILAUDID) 17:37: Q6HPRN, [place] tablet 4 mg 07 Starting Medi porfirio on Tue [place] 02/12/22 at 1237, Until Discontinu ed, Routine, Pain (scale 4-6) morpHINE (2 2021- No 2mg 2 mg, Slow Univers mg/mL) 02-12 IV Push, ity of injection 2 17:36: 20:36 Q6HPRN, [place] mg 46 :24 Starting Medical on Tue [place] 02/12/22 at 1236, Until 02/14/22 at 1536, [...] Yes 75mg 75 mg, Univ ers (APRESOLINE 9-23 Oral, BID, it y of ) tablet [...] it y of (MYCOLOG) 19:00: dose on [place] cream 00 [facility] Medical 02/11/22 at Branch 1400, Until Discontinu ed, Routine busPIRone 2021-0 Yes 30mg 30 mg, Univer s (BUSPAR) 02-11 Oral, BID, ity o f tablet 30 18:00: First dose [place] mg 00 on [facility] Medical 02/11/22 at Branch 1300, Until Discontinu ed, Routine raltegravir 2021-0 Yes 400mg 400 mg, Un matt (ISENTRESS) 02-11 Oral, BID, it y of tablet 400 18:00: First dose [place] mg 00 on [facility] Medical 02/11/22 at Branch 1300, Until Discontinu ed, JOE metoprolol 2021-0 Yes 100mg 100 mg, Uni vers tartrate 02-11 Oral, BID, ity o f (LOPRESSOR) 18:00: First dose [place] tablet 100 00 on [facility] Medical mg 02/11/22 at Branch 1300, Until Discontinu ed, Routine lisinopriL 2021-0 Yes 40mg 40 mg, Unive rs (PRINIVIL,Z 02-11 Oral, BID, it y of ESTRIL) 18:00: [place] tablet 40 00 on [facility] Medical mg 02/11/22 at Branch 1300, Until Discontinu ed, Routine emtricitabi 2021-0 Yes 1{tbl} 1 tablet, Univers ne-tenofovi 02-11 Oral, ity of r alafen 18:00: DAILY, [place] (DESCOVY) 00 First dose Medi porfirio tablet 1 on [facility] Branch tablet 02/11/22 at 1300, Until Discontinu ed, Routine ipratropium 2021-0 Yes .5mg 0.5 mg, Uni vers (ATROVENT) 02-11 Inhalation ity of 0.02 % 17:57: , QIDPRN, [place] nebulizer 10 Starting Medica l solution on [facility] Branch 0.5 mg 02/11/22 at 1257, Until Discontinu ed, Routine, Wheezing, Shortness of Breath amLODIPine 2022-0 Yes 10mg 10 mg, Unive rs (NORVASC) 02-11 Oral, ity of tablet 10 17:30: DAILY, [place] mg 00 First dose Medical (after Branch last modificati on) on [facility] 02/11/22 at 1230, Until Discontinu ed, Routine hydrALAZINE 2021- No 25mg 25 mg, Uni vers (APRESOLINE 02-11 Oral, ity of ) tablet 25 17:30: 12:54 DAILY, [place] mg 00 :55 First dose Medical (after Branch last modificati on) on [facility] 02/11/22 at 1230, Until Discontinu ed, Routine HYDROcodone 2021- No 1{tbl} 1 tablet, Univers -acetaminop 02-11 Oral, ity of hen (NORCO 14:11: 17:37 Q6HPRN, [place] 5) 5-325 mg 03 :24 Starting Medi porfirio tablet 1 on [facility] Branch tablet 02/11/22 at 0911, Until Tue02/12/22 at 1237, Routine, Pain (scale 7-10) melatonin Yes 3mg 3 mg, Univers (MELATIN) 02-11 Oral, ity of tablet 3 mg 14:08: QHSPRN, [place] 17 Starting Medical on [facility] Branch 02/11/22 at 0908, Until [...] 09 Starting Medi porfirio 8.6-50 mg on [facility] Branch per tablet 02/11/22 at 1 tablet 0906, Until Discontinu ed, Routine, Constipati on ondansetron 2022-0 Yes 4mg 4 mg, Slow Univers (ZOFRAN 02-11 IV Push, ity of (PF)) 14:05: Q6HPRN, [place] injection 4 59 Starting Medi porfirio mg [...] mg 09:10: daily. [place] tablet 54 [facility] Branch amLODIPine 0 Yes 10mg Take 10 mg U nivers (NORVASC) 02-11 by mouth ity of 10 mg 09:10: daily. [place] tablet 54 [facility] Branch piperacilli 2021-0 2021- No 3.375g [...] therapy: 72 hours iopamidol 2021-0 2- No [id number] 60mL 60 mL, Univers (ISOVUE 02-11 Intravenou [...] 02/11/22 at 0015, JOE emtricitabi 0 Yes [id number] Take one Univers ne-tenofovi 9-12 po daily ity of r alafen 00:00: [place] (DESCOVY) 00 Medical tablet Branch emtricitabi Yes [id number] Take one Univers ne-tenofovi 9-12 po daily ity of r alafen 00:00: [place] (DESCOVY) 00 Medical tablet Branch emtricitabi Yes [id number] Take one Univers ne-tenofovi 9-12 po daily ity of r alafen 00:00: [place] (DESCOVY) 00 Medical tablet Branch emtricitabi Yes [id number] Take one Univers ne-tenofovi 9-12 po daily ity of r alafen 00:00: [place] (DESCOVY) 00 Medical tablet Branch emtricita Yes [id number] Take one Univers ne-tenofovi 9-12 po daily ity of r alafen 00:00: [place] (DESCOVY) 00 Medical tablet Branch emtricita Yes [id number] Take one Univers ne-tenofovi 9-12 po daily ity of r alafen 00:00: [place] (DESCOVY) 00 Medical tablet Branch emtricita Yes [id number] Take one Univers ne-tenofovi 9-12 po daily ity of r alafen 00:00: [place] (DESCOVY) 00 Medical tablet Branch emtricita Yes [id number] Take one Univers ne-tenofovi 9-12 po daily ity of r alafen 00:00: [place] (DESCOVY) 00 Medical [facility] [id number] Take one Univers ne-tenofovi 9-12 po daily ity of r alafen 00:00: [place] (DESCOVY) 00 Medical tablet Branch emtricita Yes [id number] Take one Univers ne-tenofovi 9-12 po daily ity of r alafen 00:00: [place] (DESCOVY) 00 Medical tablet Branch emtricita Yes [id number] Take one Univers ne-tenofovi 9-12 po daily ity of r alafen 00:00: [place] (DESCOVY) 00 Medical tablet Branch emtricita Yes [id number] Take one Univers ne-tenofovi 9-12 po daily ity of r alafen 00:00: [place] (DESCOVY) 00 Medical tablet Branch emtricita Yes [id number] Take one Univers ne-tenofovi 9-12 po daily ity of r alafen 00:00: [place] (DESCOVY) 00 Medical tablet Branch emtricita Yes [id number] Take one Univers ne-tenofovi 9-12 po daily ity of r alafen 00:00: [place] (DESCOVY) 00 Medical tablet Branch emtricitabi 0 Yes [id number] Take one Univers ne-tenofovi 9-12 po daily ity of r alafen 00:00: [place] (DESCOVY) 00 Medical tablet Branch emtricitabi 0 Yes [id number] Take one Univers ne-tenofovi 9-12 po daily ity of r alafen 00:00: [place] (DESCOVY) 00 Medical tablet Branch emtricitabi 0 Yes [id number] Take one Univers ne-tenofovi 9-12 po daily ity of r alafen 00:00: [place] (DESCOVY) 00 Medical tablet Branch emtricitabi 0 2023- No [id number] Take one Univers ne-tenofovi 9-12 04-04 po daily ity of r alafen 00:00: 00:00 [place] (DESCOVY) 00 :00 Medical tablet Branch emtricitabi 0 2023- No [id number] Take one Univers ne-tenofovi 9-12 04-04 po daily ity of r alafen 00:00: 00:00 [place] (DESCOVY) 00 :00 Medical tablet Branch naproxen 2021-0 Yes [id number] 500mg Take 1 U nivers (NAPROSYN) 7-24 tablet by ity of 500 mg 00:00: mouth in [place] tablet 00 the Medical morning Branch and 1 tablet in the evening. Take with meals. methocarbam 2021-0 Yes [id number] 500mg Take 1 Univers oL 500 mg 7-24 tablet by ity o f tablet 00:00: mouth 4 [place] ([facility]) Medical times Branch daily. naproxen 2021-0 Yes [id number] 500mg Take 1 U nivers (NAPROSYN) 7-24 tablet by ity of 500 mg 00:00: mouth in [place] tablet 00 the Medical morning Branch and 1 tablet in the evening. Take with meals. methocarbam 2-0 Yes [id number] 500mg Take 1 Univers oL 500 mg 7-24 tablet by ity o f tablet 00:00: mouth 4 [place] ([facility]) Medical times Branch daily. naproxen 2-0 Yes [id number] 500mg Take 1 U nivers (NAPROSYN) 7-24 tablet by ity of 500 mg 00:00: mouth in [place] tablet 00 the Medical morning Branch and 1 tablet in the evening. Take with meals. methocarbam 2021-0 Yes [id number] 500mg Take 1 Univers oL 500 mg 7-24 tablet by ity o f tablet 00:00: mouth 4 [place] 00 (four) Medical times [place] daily. naproxen 2021-0 2- No [id number] 500mg Take 1 Univers (NAPROSYN) 7-24 10-14 tablet by ity of 500 mg 00:00: 00:00 mouth in [place] tablet 00 :00 the Medical morning Branch and 1 tablet in the evening. Take with meals. methocarbam 2021-0 2021- No [id number] 500mg Take 1 [facility] oL 500 mg 7-24 10-14 tablet by ity of tablet 00:00: 00:00 mouth 4 [place] 00 :00 (four) Medical times [place] daily. naproxen 2021-0 2021- No [id number] 500mg Take 1 Univers (NAPROSYN) 7-24 10-14 tablet by ity of 500 mg 00:00: 00:00 mouth in [place] tablet 00 :00 the Medical morning Branch and 1 tablet in the evening. Take with meals. methocarbam 2021-2021- No [id number] 500mg Take 1 Univers oL 500 mg 7-24 10-14 tablet by ity of tablet 00:00: 00:00 mouth 4 [place] 00 :00 (four) Medical times [place] daily. esomeprazol 2021- No 40mg Take 40 [...] daily. Branch traZODONE 2021- No Take by [facility] ers (DESYREL) 11-20 mouth at ity o f 10 mg/mL 09:10: 00:00 [place]time. [place] oral 28 :00 Medical suspension Branch hydralAZINE Yes 25mg Take 25 mg Univers (APRESOLINE 11-20 by mouth ity of ) 25 mg 08:47: daily. [place] tablet 47 Medical Branch cephALEXin 2021- No [id number] 500mg Take 1 Univers (KEFLEX) 10-24 capsule [...] 7-10). Indication s: acute pain buPROPion Yes [id number] 150mg Take 1 U nivers XL 4-12 tablet by ity of (WELLBUTRIN 00:00: mouth [place] XL) 150 mg 00 daily. Medical 24 hr Branch tablet busPIRone Yes [id number] 30mg Take 1 Un matt 30 mg 4-12 tablet by ity of tablet 00:00: mouth 2 [place] 00 (two) Medical times Branch daily. SERTraline Yes [id number] 200mg Take 2 Univers 100 mg 4-12 tablets by ity of tablet 00:00: mouth [place] 00 daily. Medical Branch buPROPion 0 Yes [id number] 150mg Take 1 U nivers XL 4-12 tablet by ity of (WELLBUTRIN 00:00: mouth [place] XL) 150 mg 00 daily. Medical 24 hr Branch tablet busPIRone Yes [id number] 30mg Take 1 Un matt 30 mg 4-12 tablet by ity of tablet 00:00: mouth 2 [place] 00 (two) Medical times Branch daily. SERTraline Yes [id number] 200mg Take 2 Univers 100 mg 4-12 tablets by ity of tablet 00:00: mouth [place] 00 daily. Medical Branch buPROPion 2022-0 Yes [id number] 150mg Take 1 U nivers XL 4-12 tablet by ity of (WELLBUTRIN 00:00: mouth [place] XL) 150 mg 00 daily. Medical 24 hr Branch tablet busPIRone 2021-0 Yes [id number] 30mg Take 1 Un matt 30 mg 4-12 tablet by ity of tablet 00:00: mouth 2 [place] 00 (two) Medical times Branch daily. SERTraline 2021-0 Yes [id number] 200mg Take 2 Univers 100 mg 4-12 tablets by ity of tablet 00:00: mouth [place] 00 daily. Medical Branch buPROPion 0 Yes [id number] 150mg Take 1 U nivers XL 4-12 tablet by ity of (WELLBUTRIN 00:00: mouth [place] XL) 150 mg 00 daily. Medical 24 hr Branch tablet busPIRone 0 Yes [id number] 30mg Take 1 Un matt 30 mg 4-12 tablet by ity of tablet 00:00: mouth 2 00 (two) Medical times Branch daily. SERTraline 0 Yes [id number] 200mg Take 2 [facility] 100 mg 4-12 tablets by [facility] tablet 00:00: mouth [place] 00 daily. [facility] buPROPion 0 Yes [id number] 150mg Take 1 [facility] nivers XL 4-12 tablet by [facility]y of (WELLBUTRIN 00:00: mouth [place] XL) 150 mg 00 daily. Medical 24 hr Branch tablet busPIRone 2021-0 Yes [id number] 30mg Take 1 Un matt 30 mg 4-12 tablet by [facility] of tablet 00:00: mouth 2 00 (two) Medical times Branch daily. SERTraline 2021-0 Yes [id number] 200mg Take 2 [facility] 100 mg 4-12 tablets by [facility] of tablet 00:00: mouth [place] 00 daily. [facility] buPROPion 2021-0 Yes [id number] 150mg Take 1 [facility] nivers XL 4-12 tablet by [facility]y of (WELLBUTRIN 00:00: mouth [place] XL) 150 mg 00 daily. Medical 24 hr Branch tablet busPIRone 2021-0 Yes [id number] 30mg Take 1 [facility] matt 30 mg 4-12 tablet by [facility] of tablet 00:00: mouth 2 [place] 00 (two) Medical times Branch daily. SERTraline 2022-0 Yes [id number] 200mg Take 2 [facility] 100 mg 4-12 tablets by [facility] of tablet 00:00: mouth [place] 00 daily. [facility] buPROPion 2021-0 Yes [id number] 150mg Take 1 [facility] nivers XL 4-12 tablet by [facility]y of (WELLBUTRIN 00:00: mouth [place] XL) 150 mg 00 daily. Medical 24 hr Branch tablet busPIRone 2021-0 Yes [id number] 30mg Take 1 [facility] 30 mg 4-12 tablet by [facility] of tablet 00:00: mouth 2 [place] 00 (two) Medical times Branch daily. SERTraline 0 Yes [id number] 200mg Take 2 [facility] 100 mg 4-12 tablets by [facility] of tablet 00:00: mouth [place] 00 daily. [facility] buPROPion 0 Yes [id number] 150mg Take 1 [facility] nivers XL 4-12 tablet by [facility]y of (WELLBUTRIN 00:00: mouth [place] XL) 150 mg 00 daily. Medical 24 hr Branch tablet busPIRone 0 Yes [id number] 30mg Take 1 [facility] 30 mg 4-12 tablet by [facility] of tablet 00:00: mouth 2 [place] 00 (two) Medical times Branch daily. SERTraline 0 Yes [id number] 200mg Take 2 [facility] 100 mg 4-12 tablets by [facility] of tablet 00:00: mouth [place] 00 daily. [facility] buPROPion 0 Yes [id number] 150mg Take 1 [facility] n[facility] XL 4-12 tablet by [facility] of (WELLBUTRIN 00:00: mouth [place] XL) 150 mg 00 daily. Medical 24 hr Branch tablet busPIRone 2021-0 Yes [id number] 30mg Take 1 [facility] 30 mg 4-12 tablet by [facility] of tablet 00:00: mouth 2 [place] 00 (two) Medical times Branch daily. SERTraline 0 Yes [id number] 200mg Take 2 [facility] 100 mg 4-12 tablets by [facility] of tablet 00:00: mouth [place] 00 daily. [facility] buPROPion 0 Yes [id number] 150mg Take 1 [facility] XL 4-12 tablet by [facility] of (WELLBUTRIN 00:00: mouth [place] XL) 150 mg 00 daily. Medical 24 hr Branch tablet busPIRone 2021-0 Yes [id number] 30mg Take 1 [facility] 30 mg 4-12 tablet by [facility] of tablet 00:00: mouth 2 [place] 00 (two) Medical times Branch daily. SERTraline 2021-0 Yes [id number] 200mg Take 2 [facility] 100 mg 4-12 tablets by [facility] of tablet 00:00: mouth [place] 00 daily. [facility] buPROPion 2021-0 Yes [id number] 150mg Take 1 [facility] XL 4-12 tablet by [facility] of (WELLBUTRIN 00:00: mouth [place] XL) 150 mg 00 daily. Medical 24 hr Branch tablet busPIRone 2021-0 Yes [id number] 30mg Take 1 [facility] 30 mg 4-12 tablet by [facility] of tablet 00:00: mouth 2 [place] 00 (two) Medical times Branch daily. SERTraline 2021-0 Yes [id number] 200mg Take 2 [facility] 100 mg 4-12 tablets by [facility] of tablet 00:00: mouth [place] 00 daily. Medical [facility] buPROPion 2021-0 Yes [id number] 150mg Take 1 [facility] XL 4-12 tablet by [facility] of (WELLBUTRIN 00:00: mouth [place] XL) 150 mg 00 daily. Medical 24 hr Branch tablet busPIRone 2021-0 Yes [id number] 30mg Take 1 [facility] 30 mg 4-12 tablet by [facility] of tablet 00:00: mouth 2 [place] 00 (two) Medical times Branch daily. SERTraline 0 Yes [id number] 200mg Take 2 [facility] 100 mg 4-12 tablets by [facility] of tablet 00:00: mouth [place] 00 daily. Medical [facility] buPROPion 2021-0 Yes [id number] 150mg Take 1 [facility] XL 4-12 tablet by [facility]y of (WELLBUTRIN 00:00: mouth [place] XL) 150 mg 00 daily. Medical 24 hr Branch tablet busPIRone 2021-0 Yes [id number] 30mg Take 1 [facility] 30 mg 4-12 tablet by [facility] of tablet 00:00: mouth 2 [place] 00 (two) Medical times Branch daily. SERTraline 2021-0 Yes [id number] 200mg Take 2 [facility] 100 mg 4-12 tablets by [facility] of tablet 00:00: mouth [place] 00 daily. Medical [facility] buPROPion 2021-0 Yes [id number] 150mg Take 1 [facility] XL 4-12 tablet by [facility]y of (WELLBUTRIN 00:00: mouth [place] XL) 150 mg 00 daily. Medical 24 hr Branch tablet busPIRone 2021-0 Yes [id number] 30mg Take 1 [facility] matt 30 mg 4-12 tablet by [facility] of tablet 00:00: mouth 2 [place] 00 (two) Medical times Branch daily. SERTraline 2021-0 Yes [id number] 200mg Take 2 [facility] 100 mg 4-12 tablets by [facility] of tablet 00:00: mouth [place] 00 daily. [facility] buPROPion 2021-0 Yes [id number] 150mg Take 1 [facility] n[facility] XL 4-12 tablet by [facility]y of (WELLBUTRIN 00:00: mouth [place] XL) 150 mg 00 daily. Medical 24 hr Branch tablet busPIRone 2021-0 Yes [id number] 30mg Take 1 [facility] 30 mg 4-12 tablet by [facility] of tablet 00:00: mouth 2 (two) Medical times Branch daily. SERTraline 2021-0 Yes [id number] 200mg Take 2 [facility] 100 mg 4-12 tablets by [facility] of tablet 00:00: mouth [place] 00 daily. Medical [facility] buPROPion 2021-0 Yes [id number] 150mg Take 1 [facility] nivers XL 4-12 tablet by [facility]y of (WELLBUTRIN 00:00: mouth [place] XL) 150 mg 00 daily. Medical 24 hr Branch tablet busPIRone 2021-0 Yes [id number] 30mg Take 1 [facility] 30 mg 4-12 tablet by [facility] of tablet 00:00: mouth 2 00 (two) Medical times Branch daily. SERTraline 2021-0 Yes [id number] 200mg Take 2 [facility] 100 mg 4-12 tablets by [facility] of tablet 00:00: mouth [place] 00 daily. Medical [facility] buPROPion 2021-0 Yes [id number] 150mg Take 1 [facility] XL 4-12 tablet by [facility] of (WELLBUTRIN 00:00: mouth [place] XL) 150 mg 00 daily. Medical 24 hr Branch tablet busPIRone 2021-0 Yes [id number] 30mg Take 1 [facility] 30 mg 4-12 tablet by [facility] of tablet 00:00: mouth 2 00 (two) Medical times Branch daily. SERTraline 2021-0 Yes [id number] 200mg Take 2 [facility] 100 mg 4-12 tablets by [facility] of tablet 00:00: mouth [place] 00 daily. [facility] buPROPion 2021-0 Yes [id number] 150mg Take 1 [facility] XL 4-12 tablet by [facility] of (WELLBUTRIN 00:00: mouth [place] XL) 150 mg 00 daily. Medical 24 hr Branch tablet busPIRone 2021-0 Yes [id number] 30mg Take 1 [facility] matt 30 mg 4-12 tablet by [facility] of tablet 00:00: mouth 2 [place] 00 (two) Medical times Branch daily. SERTraline 2021-0 Yes [id number] 200mg Take 2 [facility] 100 mg 4-12 tablets by [facility] of tablet 00:00: mouth [place] 00 daily. Medical [facility] buPROPion 2021-0 Yes [id number] 150mg Take 1 [facility] XL 4-12 tablet by [facility] of (WELLBUTRIN 00:00: mouth [place] XL) 150 mg 00 daily. Medical 24 hr Branch tablet busPIRone 2021-0 Yes [id number] 30mg Take 1 [facility] 30 mg 4-12 tablet by [facility] of tablet 00:00: mouth 2 [place] 00 (two) Medical times Branch daily. SERTraline 2021-0 Yes [id number] 200mg Take 2 [facility] 100 mg 4-12 tablets by [facility] of tablet 00:00: mouth [place] 00 daily. Medical [facility] buPROPion 2021-0 Yes [id number] 150mg Take 1 [facility] XL 4-12 tablet by [facility]y of (WELLBUTRIN 00:00: mouth [place] XL) 150 mg 00 daily. Medical 24 hr Branch tablet busPIRone 2021-0 Yes [id number] 30mg Take 1 [facility] matt 30 mg 4-12 tablet by [facility] of tablet 00:00: mouth 2 [place] 00 (two) Medical times Branch daily. SERTraline 2021-0 Yes [id number] 200mg Take 2 [facility] 100 mg 4-12 tablets by [facility] of tablet 00:00: mouth [place] 00 daily. Medical [facility] buPROPion 2021-0 Yes [id number] 150mg Take 1 [facility] XL 4-12 tablet by [facility] of (WELLBUTRIN 00:00: mouth [place] XL) 150 mg 00 daily. Medical 24 hr Branch tablet busPIRone 2021-0 Yes [id number] 30mg Take 1 [facility] 30 mg 4-12 tablet by [facility] of tablet 00:00: mouth 2 [place] 00 (two) Medical times Branch daily. SERTraline 2021-0 Yes [id number] 200mg Take 2 [facility] 100 mg 4-12 tablets by [facility] of tablet 00:00: mouth [place] 00 daily. Medical [facility] buPROPion 2021-0 Yes [id number] 150mg Take 1 [facility] XL 4-12 tablet by [facility] of (WELLBUTRIN 00:00: mouth [place] XL) 150 mg 00 daily. Medical 24 hr Branch tablet busPIRone 2021-0 Yes [id number] 30mg Take 1 [facility] 30 mg 4-12 tablet by [facility] of tablet 00:00: mouth 2 [place] 00 (two) Medical times Branch daily. SERTraline 2021-0 Yes [id number] 200mg Take 2 [facility] 100 mg 4-12 tablets by [facility] of tablet 00:00: mouth [place] 00 daily. Medical [facility] buPROPion 2021-0 Yes [id number] 150mg Take 1 [facility] XL 4-12 tablet by [facility] of (WELLBUTRIN 00:00: mouth [place] XL) 150 mg 00 daily. Medical 24 hr Branch tablet busPIRone 2021-0 Yes [id number] 30mg Take 1 [facility] 30 mg 4-12 tablet by [facility] of tablet 00:00: mouth 2 [place] 00 (two) Medical times Branch daily. SERTraline 2021-0 Yes [id number] 200mg Take 2 [facility] 100 mg 4-12 tablets by [facility] of tablet 00:00: mouth [place] 00 daily. Medical [facility] buPROPion 2021-0 Yes [id number] 150mg Take 1 [facility] n[facility] XL 4-12 tablet by [facility] of (WELLBUTRIN 00:00: mouth [place] XL) 150 mg 00 daily. Medical 24 hr Branch tablet busPIRone 2021-0 Yes [id number] 30mg Take 1 [facility] matt 30 mg 4-12 tablet by [facility] of tablet 00:00: mouth 2 [place] 00 (two) Medical times Branch daily. SERTraline 2021-0 Yes [id number] 200mg Take 2 [facility] 100 mg 4-12 tablets by [facility] of tablet 00:00: mouth [place] 00 daily. Medical Branch raltegravir 2021-0 Yes [id number] 400mg Take 1 [facility] (ISENTRESS) 3-28 tablet by [facility]y of 400 mg 00:00: mouth 2 [place] tablet 00 (two) Medical times Branch daily. raltegravir 2022-0 Yes [id number] 400mg Take 1 [facility] (ISENTRESS) 3-28 tablet by [facility]y of 400 mg 00:00: mouth 2 [place] tablet 00 (two) Medical times Branch daily. raltegravir 2022-0 Yes [id number] 400mg Take 1 [facility] (ISENTRESS) 3-28 tablet by ity of 400 mg 00:00: mouth 2 [place] tablet 00 (two) Medical times Branch daily. raltegravir 2022-0 Yes [id number] 400mg Take 1 [facility] (ISENTRESS) 3-28 tablet by ity of 400 mg 00:00: mouth 2 [place] tablet 00 (two) Medical times Branch daily. raltegravir 2022-0 Yes [id number] 400mg Take 1 [facility] (ISENTRESS) 3-28 tablet by [facility]y of 400 mg 00:00: mouth 2 [place] tablet 00 (two) Medical times Branch daily. raltegravir 2-0 Yes [id number] 400mg Take 1 [facility] (ISENTRESS) 3-28 tablet by [facility] of 400 mg 00:00: mouth 2 [place] tablet 00 (two) Medical times Branch daily. raltegravir 2-0 Yes [id number] 400mg Take 1 [facility] (ISENTRESS) 3-28 tablet by [facility]y of 400 mg 00:00: mouth 2 [place] tablet 00 (two) Medical times Branch daily. raltegravir 2022-0 Yes [id number] 400mg Take 1 [facility] (ISENTRESS) 3-28 tablet by ity of 400 mg 00:00: mouth 2 [place] tablet 00 (two) Medical times Branch daily. raltegravir 2022-0 Yes [id number] 400mg Take 1 [facility] (ISENTRESS) 3-28 tablet by ity of 400 mg 00:00: mouth 2 [place] tablet 00 (two) Medical times Branch daily. raltegravir 2022-0 Yes [id number] 400mg Take 1 [facility] (ISENTRESS) 3-28 tablet by ity of 400 mg 00:00: mouth 2 [place] tablet 00 (two) Medical times Branch daily. raltegravir 2022-0 Yes [id number] 400mg Take 1 [facility] (ISENTRESS) 3-28 tablet by ity of 400 mg 00:00: mouth 2 [place] tablet 00 (two) Medical times Branch daily. raltegravir 2022-0 Yes [id number] 400mg Take 1 [facility] (ISENTRESS) 3-28 tablet by ity of 400 mg 00:00: mouth 2 [place] tablet 00 (two) Medical times Branch daily. raltegravir 2021-0 Yes [id number] 400mg Take 1 [facility] (ISENTRESS) 3-28 tablet by ity of 400 mg 00:00: mouth 2 [place] tablet 00 (two) Medical times Branch daily. raltegravir 2021-0 Yes [id number] 400mg Take 1 [facility] (ISENTRESS) 3-28 tablet by ity of 400 mg 00:00: mouth 2 [place] tablet 00 (two) Medical times Branch daily. raltegravir 2021-0 Yes [id number] 400mg Take 1 [facility] (ISENTRESS) 3-28 tablet by ity of 400 mg 00:00: mouth 2 [place] tablet 00 (two) Medical times Branch daily. raltegravir 2021-0 Yes [id number] 400mg Take 1 [facility] (ISENTRESS) 3-28 tablet by ity of 400 mg 00:00: mouth 2 [place] tablet 00 (two) Medical times Branch daily. raltegravir 2021-0 Yes [id number] 400mg Take 1 [facility] (ISENTRESS) 3-28 tablet by ity of 400 mg 00:00: mouth 2 [place] tablet 00 (two) Medical times Branch daily. raltegravir 2021-0 Yes [id number] 400mg Take 1 [facility] (ISENTRESS) 3-28 tablet by ity of 400 mg 00:00: mouth 2 [place] tablet 00 (two) Medical times Branch daily. raltegravir 2021-0 Yes [id number] 400mg Take 1 [facility] (ISENTRESS) 3-28 tablet by ity of 400 mg 00:00: mouth 2 [place] tablet 00 (two) Medical times Branch daily. raltegravir 2021-0 Yes [id number] 400mg Take 1 [facility] (ISENTRESS) 3-28 tablet by ity of 400 mg 00:00: mouth 2 [place] tablet 00 (two) Medical times Branch daily. raltegravir 2-0 2023- No [id number] 400mg Take 1 [facility] (ISENTRESS) 3-28 05-08 tablet by it y of 400 mg 00:00: 00:00 mouth 2 [place] tablet 00 :00 (two) Medical times Branch daily. LORazepam 1 2021- No [id number] 1mg Take 1 [facility] mg tablet 08-10 [...] times a tablet day. emtricitabi 2021- No [id number] Take one [facility] ne-tenofovi - 09-12 po daily ity of r alafen 00:00: 00:00 [place] (DESCOVY) 00 :00 Medical tablet Branch metoprolol Yes [id number] Take 1 [facility] tartrate 7-26 [facility] (Lopressor) 00:00: (100 mg 100 MG 00 total) by tablet mouth 2 (two) times a day AND 0.5 tablets (50 mg total) every night. metoprolol Yes [id number] Take 1 [facility] tartrate 7-26 [facility] [...] area in groin) hydrALAZINE 0 Yes 50mg Q.[id number] Take 50 mg [facility] (APRESOLINE 7-19 [id number] [facility] ) 50 MG [...] area in groin) hydrALAZINE 0 Yes 50mg Q.[id number] Take 50 mg [facility] (APRESOLINE 7-19 [id number] [facility] mouth [facility] ) 50 MG [...] (affected area in groin) hydrALAZINE Yes 50mg Q.[id number] Take 50 mg [facility] (APRESOLINE 7-19 [id number] [facility] mouth [facility] ) 50 MG [...] (affected area in groin) hydrALAZINE Yes 50mg Q.[id number] Take 50 mg [facility] (APRESOLINE 7-19 [id number] [facility] mouth [facility] ) 50 MG [...] area in groin) hydrALAZINE 0 Yes 50mg Q.[id number] Take 50 mg [facility] (APRESOLINE 7-19 [id number] [facility] mouth [facility] ) 50 MG [...] area in groin) hydrALAZINE 0 Yes 50mg Q.[id number] Take 50 mg [facility] (APRESOLINE 7-19 [id number] [facility] mouth [facility] ) 50 MG [...] (affected area in groin) hydrALAZINE Yes 50mg Q.[id number] Take 50 mg [facility] (APRESOLINE 7-19 [id number] by mouth 3 [facility] ) 50 MG [...] area in groin) hydrALAZINE 0 Yes 50mg Q.[id number] Take 50 mg [facility] (APRESOLINE 7-19 [id number] [facility] mouth [facility] ) 50 MG [...] area in groin) hydrALAZINE 0 Yes 50mg Q.[id number] Take 50 mg [facility] (APRESOLINE 7-19 [id number] [facility] ) 50 MG [...] (affected area in groin) hydrALAZINE Yes 50mg Q.[id number] Take 50 mg [facility] (APRESOLINE 7-19 [id number] by mouth [facility] ) 50 MG [...] area in groin) hydrALAZINE 0 Yes 50mg Q.[id number] Take 50 mg [facility] (APRESOLINE 7-19 [id number] [facility] mouth [facility] ) 50 MG [...] area in groin) hydrALAZINE 2021-0 Yes 50mg Q.[id number] Take 50 mg [facility] (APRESOLINE 7-19 [id number] [facility] mouth [facility] ) 50 MG [...] (affected area in groin) hydrALAZINE Yes 50mg Q.[id number] Take 50 mg [facility] (APRESOLINE 7-19 [id number] [facility] mouth [facility] ) 50 MG [...] area in groin) hydrALAZINE 0 Yes 50mg Q.[id number] Take 50 mg [facility] (APRESOLINE 7-19 [id number] [facility] ) 50 MG [...] area in groin) hydrALAZINE 0 Yes 50mg Q.[id number] Take 50 mg [facility] (APRESOLINE 7-[id number] [address] mouth [facility] ) 50 MG [...] (affected area in groin) hydrALAZINE Yes 50mg Q.[id number] Take 50 mg [facility] (APRESOLINE 7-19 [id number] [address] [facility] ) 50 MG [...] (affected area in groin) hydrALAZINE Yes 50mg Q.[id number] Take 50 mg [facility] (APRESOLINE 7-19 [id number] [facility] mouth [facility] ) 50 MG [...] area in groin) hydrALAZINE 0 Yes 50mg Q.[id number] Take 50 mg [facility] (APRESOLINE 7-19 [id number] [facility] ) 50 MG [...] (affected area in groin) hydrALAZINE Yes 50mg Q.[id number] Take 50 mg [facility] (APRESOLINE 7-[id number] [facility] ) 50 MG [...] (affected area in groin) hydrALAZINE Yes 50mg Q.[id number] Take 50 mg [facility] (APRESOLINE -19 [id number] [facility] mouth [facility] ) 50 MG [...] area in groin) hydrALAZINE 0 Yes 50mg Q.[id number] Take 50 mg [facility] (APRESOLINE -19 [id number] [facility] mouth [facility] ) 50 MG [...] area in groin) hydrALAZINE 0 Yes 50mg Q.[id number] Take 50 mg [facility] (APRESOLINE 7-19 [id number] [facility] ) 50 MG [...] (affected area in groin) hydrALAZINE Yes 50mg Q.[id number] Take 50 mg [facility] (APRESOLINE 7-19 [id number] [facility] mouth [facility] ) 50 MG [...] area in groin) hydrALAZINE 0 Yes 50mg Q.[id number] Take 50 mg [facility] (APRESOLINE - [id number] by mouth 3 [facility] ) 50 MG [...] area in groin) hydrALAZINE 0 Yes 50mg Q.[id number] Take 50 mg [facility] (APRESOLINE 7-[id number] [facility] ) 50 MG [...] area in groin) hydrALAZINE 0 Yes 50mg Q.[id number] Take 50 mg [facility] (APRESOLINE 7-19 [id number] [facility] ) 50 MG [...] (affected area in groin) hydrALAZINE Yes 50mg Q.[id number] Take 50 mg [facility] (APRESOLINE 7-19 [id number] [facility] ) 50 MG [...] area in groin) hydrALAZINE 2020-0 Yes 50mg Q.[id number] Take 50 mg [facility] (APRESOLINE 7-19 [id number] [facility] ) 50 MG [...] area in groin) hydrALAZINE 0 Yes 50mg Q.[id number] Take 50 mg [facility] (APRESOLINE 7-19 [id number] [facility] ) 50 MG [...] (affected area in groin) hydrALAZINE Yes 50mg Q.[id number] Take 50 mg [facility] (APRESOLINE 7-19 [id number] [facility] mouth [facility] ) 50 MG [...] area in groin) hydrALAZINE 0 Yes 50mg Q.[id number] Take 50 mg [facility] (APRESOLINE - [id number] by mouth 3 [facility] ) 50 MG [...] area in groin) hydrALAZINE 0 Yes 50mg Q.[id number] Take 50 mg [facility] (APRESOLINE 7-19 [id number] [facility] mouth [facility] ) 50 MG [...] area in groin) hydrALAZINE 0 Yes 50mg Q.[id number] Take 50 mg [facility] (APRESOLINE 7- [id number] by mouth 3 [facility] ) 50 MG [...] (affected area in groin) hydrALAZINE Yes 50mg Q.[id number] Take 50 mg [facility] (APRESOLINE 7-19 [id number] [address] [facility] ) 50 MG [...] area in groin) hydrALAZINE 2020-0 Yes 50mg Q.[id number] Take 50 mg [facility] (APRESOLINE -19 [id number] [facility] ) 50 MG [...] tablet 25 daily. l clobetasol 2021-0 Yes Q.5D Apply 1 [facility] (TEMOVATE) 7-[address] 0.05 % 10:51: [facility] topically l 2 (two) times a day. (affected area in groin) hydrALAZINE 0 Yes 50mg Q.[id number] Take 50 mg [facility] (APRESOLINE 7-19 [id number] [facility] ) 50 MG [...] (affected area in groin) hydrALAZINE Yes 50mg Q.[id number] Take 50 mg [facility] (APRESOLINE -19 [id number] [facility] ) 50 MG [...] area in groin) hydrALAZINE 0 Yes 50mg Q.[id number] Take 50 mg [facility] (APRESOLINE -19 [id number] [facility] ) 50 MG [...] area in groin) hydrALAZINE 0 Yes 50mg Q.[id number] Take 50 mg [facility] (APRESOLINE 7-19 [id number] [facility] mouth [facility] ) 50 MG [...] (affected area in groin) hydrALAZINE Yes 50mg Q.[id number] Take 50 mg [facility] (APRESOLINE 7-19 [id number] [facility] mouth [facility] ) 50 MG [...] area in groin) hydrALAZINE 0 Yes 50mg Q.[id number] Take 50 mg [facility] (APRESOLINE - [id number] by mouth 3 [facility] ) 50 MG [...] (affected area in groin) hydrALAZINE Yes 50mg Q.[id number] Take 50 mg [facility] (APRESOLINE 7-[id number] [facility] ) 50 MG [...] area in groin) hydrALAZINE 0 Yes 50mg Q.[id number] Take 50 mg [facility] (APRESOLINE 7-[id number] [facility] mouth [facility] ) 50 MG [...] (affected area in groin) hydrALAZINE Yes 50mg Q.[id number] Take 50 mg [facility] (APRESOLINE 7-19 [id number] [facility] ) 50 MG [...] area in groin) hydrALAZINE 2020-0 Yes 50mg Q.[id number] Take 50 mg [facility] (APRESOLINE -19 [id number] [facility] mouth [facility] ) 50 MG [...] area in groin) hydrALAZINE 0 Yes 50mg Q.[id number] Take 50 mg [facility] (APRESOLINE 7-[id number] [facility] [address] ) 50 MG [...] (affected area in groin) hydrALAZINE Yes 50mg Q.[id number] Take 50 mg [facility] (APRESOLINE 7-[id number] [facility] ) 50 MG [...] area in groin) hydrALAZINE 0 Yes 50mg Q.[id number] Take 50 mg [facility] (APRESOLINE - [id number] by mouth 3 [facility] ) 50 MG [...] area in groin) hydrALAZINE 0 Yes 50mg Q.[id number] Take 50 mg [facility] (APRESOLINE 7-[id number] [facility] ) 50 MG [...] area in groin) hydrALAZINE 0 Yes 50mg Q.[id number] Take 50 mg [facility] (APRESOLINE 7- [id number] by mouth 3 [facility] ) 50 MG [...] (affected area in groin) hydrALAZINE Yes 50mg Q.[id number] Take 50 mg [facility] (APRESOLINE 7-19 [id number] [facility] ) 50 MG [...] area in groin) hydrALAZINE 0 Yes 50mg Q.[id number] Take 50 mg [facility] (APRESOLINE 7-[id number] [facility] ) 50 MG [...] area in groin) hydrALAZINE 0 Yes 50mg Q.[id number] Take 50 mg [facility] (APRESOLINE 7-[id number] [facility] ) 50 MG [...] (affected area in groin) hydrALAZINE Yes 50mg Q.[id number] Take 50 mg [facility] (APRESOLINE 7-[id number] [facility] ) 50 MG [...] area in groin) hydrALAZINE 0 Yes 50mg Q.[id number] Take 50 mg [facility] (APRESOLINE -19 [id number] [facility] mouth [facility] ) 50 MG [...] area in groin) hydrALAZINE 0 Yes 50mg Q.[id number] Take 50 mg [facility] (APRESOLINE 7-[id number] [facility] [address] ) 50 MG [...] (affected area in groin) hydrALAZINE Yes 50mg Q.[id number] Take 50 mg [facility] (APRESOLINE 7-[id number] [facility] [address] ) 50 MG [...] area in groin) hydrALAZINE 0 Yes 50mg Q.[id number] Take 50 mg [facility] (APRESOLINE 7-[id number] [facility] ) 50 MG [...] area in groin) hydrALAZINE 2021-0 Yes 50mg Q.[id number] Take 50 mg [facility] (APRESOLINE 7-[id number] [facility] [address] ) 50 MG [...] (affected area in groin) hydrALAZINE Yes 50mg Q.[id number] Take 50 mg [facility] (APRESOLINE 7-[id number] [facility] [address] ) 50 MG [...] area in groin) hydrALAZINE 0 Yes 50mg Q.[id number] Take 50 mg [facility] (APRESOLINE 7-[id number] [facility] [address] ) 50 MG [...] area in groin) hydrALAZINE 0 Yes 50mg Q.[id number] Take 50 mg [facility] (APRESOLINE 7-[id number] [facility] [address] ) 50 MG [...] area in groin) hydrALAZINE 0 Yes 50mg Q.[id number] Take 50 mg [facility] (APRESOLINE 7-[id number] [facility] ) 50 MG [...] (affected area in groin) hydrALAZINE Yes 50mg Q.[id number] Take 50 mg [facility] (APRESOLINE 7-[id number] [facility] ) 50 MG [...] area in groin) hydrALAZINE 0 Yes 50mg Q.[id number] Take 50 mg [facility] (APRESOLINE 7-[id number] [facility] [address] ) 50 MG [...] area in groin) hydrALAZINE 0 Yes 50mg Q.[id number] Take 50 mg [facility] (APRESOLINE 7-[id number] [facility] ) 50 MG [...] (affected area in groin) hydrALAZINE Yes 50mg Q.[id number] Take 50 mg [facility] (APRESOLINE 7-[id number] [facility] [address] ) 50 MG [...] (affected area in groin) hydrALAZINE Yes 50mg Q.[id number] Take 50 mg [facility] (APRESOLINE 7-[id number] [facility] [address] [facility] ) 50 MG [...] area in groin) hydrALAZINE 0 Yes 50mg Q.[id number] Take 50 mg [facility] (APRESOLINE 7-[id number] [facility] [address] ) 50 MG [...] (affected area in groin) hydrALAZINE Yes 50mg Q.[id number] Take 50 mg [facility] (APRESOLINE 7-[id number] [facility] [address] ) 50 MG [...] (affected area in groin) hydrALAZINE Yes 50mg Q.[id number] Take 50 mg [facility] (APRESOLINE 7-[id number] mouth [facility] [address] ) 50 MG [...] area in groin) hydrALAZINE 0 Yes 50mg Q.[id number] Take 50 mg [facility] (APRESOLINE 7-[id number] [facility] ) 50 MG [...] (affected area in groin) hydrALAZINE Yes 50mg Q.[id number] Take 50 mg [facility] (APRESOLINE 7-[id number] mouth [facility] [address] ) 50 MG [...] (affected area in groin) hydrALAZINE Yes 50mg Q.[id number] Take 50 mg [facility] (APRESOLINE 7-[id number] [facility] ) 50 MG [...] tablet 25 daily. l nystatin-tr 2021-0 Yes [id number] Apply to [facility] iamcinolone 7-06 area(s) 3 [facility] of cream 00:00: (three) [place] 00 times Medical daily. Branch nystatin-tr 2021-0 Yes [id number] Apply to [facility] iamcinolone 7-06 area(s) 3 ity of cream 00:00: (three) [place] 00 times Medical daily. Branch nystatin-tr 2021-0 Yes [id number] Apply to [facility] iamcinolone 7-06 area(s) 3 ity of cream 00:00: (three) [place] 00 times Medical daily. Branch nystatin-tr 2021-0 Yes [id number] Apply to [facility] iamcinolone 7-06 area(s) 3 ity of cream 00:00: (three) [place] 00 times Medical daily. Branch nystatin-tr 2021-0 Yes [id number] Apply to [facility] iamcinolone 7-06 area(s) 3 ity of cream 00:00: (three) [place] 00 times Medical daily. Branch nystatin-tr 2021-0 Yes [id number] Apply to [facility] iamcinolone 7-06 area(s) 3 ity of cream 00:00: (three) [place] 00 times Medical daily. Branch nystatin-tr 2021-0 Yes [id number] Apply to [facility] iamcinolone 7-06 area(s) 3 ity of cream 00:00: (three) [place] 00 times Medical daily. Branch nystatin-tr 2021-0 Yes [id number] Apply to [facility] iamcinolone 7-06 area(s) 3 ity of cream 00:00: (three) [place] 00 times Medical daily. Branch nystatin-tr 2021-0 Yes [id number] Apply to [facility] iamcinolone 7-06 area(s) 3 ity of cream 00:00: (three) [place] 00 times Medical daily. Branch nystatin-tr 2021-0 Yes [id number] Apply to [facility] iamcinolone 7-06 area(s) 3 ity of cream 00:00: (three) [place] 00 times Medical daily. Branch nystatin-tr 2021-0 Yes [id number] Apply to [facility] iamcinolone 7-06 area(s) 3 ity of cream 00:00: (three) [place] 00 times Medical daily. Branch nystatin-tr 2021-0 Yes [id number] Apply to [facility] iamcinolone 7-06 area(s) 3 ity of cream 00:00: (three) [place] 00 times Medical daily. Branch nystatin-tr 2021-0 Yes [id number] Apply to [facility] iamcinolone 7-06 area(s) 3 ity of cream 00:00: (three) [place] 00 times Medical daily. Branch nystatin-tr 2021-0 Yes [id number] Apply to [facility] iamcinolone 7-06 area(s) 3 ity of cream 00:00: (three) [place] 00 times Medical daily. Branch nystatin-tr 2021-0 Yes [id number] Apply to [facility] iamcinolone 7-06 area(s) 3 ity of cream 00:00: (three) [place] 00 times Medical daily. Branch nystatin-tr 2021-0 Yes [id number] Apply to [facility] iamcinolone 7-06 area(s) 3 ity of cream 00:00: (three) [place] 00 times Medical daily. Branch nystatin-tr 2021-0 Yes [id number] Apply to [facility] iamcinolone 7-06 area(s) 3 ity of cream 00:00: (three) [place] 00 times Medical daily. Branch nystatin-tr 2021-0 Yes [id number] Apply to [facility] iamcinolone 7-06 area(s) 3 ity of cream 00:00: (three) [place] 00 times Medical daily. Branch nystatin-tr 2021-0 Yes [id number] Apply to [facility] iamcinolone 7-06 area(s) 3 ity of cream 00:00: (three) [place] 00 times Medical daily. Branch nystatin-tr 2021-0 Yes [id number] Apply to [facility] iamcinolone 7-06 area(s) 3 ity of cream 00:00: (three) [place] 00 times Medical daily. Branch nystatin-tr 2021-0 Yes [id number] Apply to [facility] iamcinolone 7-06 area(s) 3 ity of cream 00:00: (three) [place] 00 times Medical daily. Branch nystatin-tr 2021-0 Yes [id number] Apply to [facility] iainolone 7 area(s) 3 ity of cream 00:00: (three) [place] 00 times Medical daily. Branch nystatin-tr 2020-0 Yes [id number] Apply to [facility] iainolone 7 area(s) 3 ity of cream 00:00: (three) [place] 00 times Medical daily. Branch nystatin-tr 2020-0 Yes [id number] Apply to [facility] iainolone 7 area(s) 3 ity of cream 00:00: (three) [place] 00 times Medical daily. Branch budesonide- 0 202- No 1{puff} QD Inhale 1 [facility] formoteroL 6-25 06-[address] (SYMBICORT) 14:37: 00:00 morning. H ospita 160-4.5 02 :00 l mcg/actuati on inhaler hydrALAZINE 0 Yes [id number] 50mg [id number] Take 1 [place] (Apresoline 6-11 [id number] tablet (50 Health ) 50 MG 00:00: 3D mg total) tablet 00 by mouth 3 (three) times a day. hydrALAZINE Yes [id number] 50mg [id number] Take 1 [place] (Apresoline 6-11 [id number] tablet (50 Health ) 50 MG 00:00: [...] % 00:00: ointment 00 nystatin 2020- No [id number] Q.25D Take 5 mL Methodi (MYCOSTATIN 10-06 [...] ia 4-10 (Same as: l 14:00: Cordarone) [place] Amlodipine No Notes: Memor ia 4-10 (Same as: l 14:00: Norvasc) [place] emtricitabi No Notes: Caesar lisa ne 200 MG / 4-10 (Same as: l tenofovir 14:00: Descovy) Herm ariel alafenamide 00 Non-formul 25 MG Oral nancy Tablet [Descovy] Sertraline No Notes: Memor ia 4-10 (Same as: l 14:00: Zoloft) [place] pantoprazol No Notes: Caesar lisa e 4-10 Tablet l 14:00: should not [place] 00 be chewed or crushed. (Same as: Protonix) Amiodarone No Notes: Memor ia 4-10 (Same as: l 14:00: Cordarone) [place] 00 Amlodipine No Notes: Memor ia 4-10 [...] e 4-10 Tablet l 14:00: should not [place] 00 be chewed or crushed. (Same as: Protonix) Amiodarone No Notes: Memor ia 4-10 (Same as: l 14:00: Cordarone) [place] Amlodipine No Notes: Memor ia 4-10 (Same as: l 14:00: Norvasc) [place] emtricitabi No Notes: Caesar lisa ne 200 MG / 4-10 (Same as: l tenofovir 14:00: Descovy) Herm ariel alafenamide 00 Non-formul 25 MG Oral nancy Tablet [Descovy] Sertraline No Notes: Memor ia 4-10 (Same as: l 14:00: Zoloft) [place] 00 pantoprazol No Notes: Caesar lisa e 4-10 Tablet l 14:00: should not [place] 00 be chewed or crushed. (Same as: [...] e 4-10 Tablet l 14:00: should not [place] 00 be chewed or crushed. (Same as: [...] ia 4-10 (Same as: l 14:00: Zoloft) [place] 00 pantoprazol No Notes: Caesar lisa e 4-10 Tablet l 14:00: should not [place] 00 be chewed or crushed. (Same as: Protonix) Amiodarone No Notes: Memor ia 4-10 (Same as: l 14:00: Cordarone) [place] 00 Sucralfate No Notes: May M emoria 4-10 interfere l 02:00: w/enteral [place] 00 feeds - Take 1 hr before or 2 hr after antacids, dairy pdt, meals & minerals - On empty stomach. For patients unable to swallow tablet, dissolve in 10mL - 30mL of water or juice and stir before giving. (Same As: Carafate) Saline No Notes: Memoria Flush 0.9% 4-10 (Same as: l 02:00: BD [place] Posiflush) Eliquis No Notes: Memoria 4-10 Same [...] Memoria 4-10 Same as: l 02:00: Eliquis [place] 00 Hydralazine No Notes: Caesar lisa Hydrochlori 4-10 (Same as: l de 50 MG 02:00: Apresoline Her mitchell Oral Tablet 00 ) May interfere w/enteral feedings Take With Food Sucralfate No Notes: May M emoria 4-10 interfere l 02:00: w/enteral [place] 00 feeds - Take 1 hr before [...] 0.9% 4-10 (Same as: l 02:00: BD [place] 00 Posiflush) Eliquis No Notes: Memoria 4-10 Same as: l 02:00: Eliquis [place] Hydralazine No Notes: Caesar lisa Hydrochlori 4-10 (Same as: l de 50 MG 02:00: Apresoline Her mitchell Oral Tablet 00 ) May interfere w/enteral feedings Take With Food Sucralfate No Notes: May M emoria 4-10 interfere l 02:00: w/enteral [place] 00 feeds - Take 1 hr before or 2 hr after antacids, dairy pdt, meals & minerals - On empty stomach. For patients unable to swallow tablet, dissolve in 10mL - 30mL of water or juice and stir before giving. (Same As: Carafate) Saline No Notes: Memoria Flush 0.9% 4-10 (Same as: l 02:00: BD [place] Posiflush) Eliquis No Notes: Memoria 4-10 Same as: l 02:00: Eliquis [place] Hydralazine No Notes: Caesar lisa Hydrochlori 4-10 [...] Memoria 4-10 Same as: l 02:00: Eliquis [place] 00 Hydralazine No Notes: Caesar lisa Hydrochlori [...] 0.9% 4-10 (Same as: l 02:00: BD [place] Posiflush) Eliquis No Notes: Memoria 4-10 Same as: l 02:00: Eliquis [place] Hydralazine No Notes: Caesar lisa Hydrochlori 4-10 (Same as: l de 50 MG 02:00: Apresoline Her mitchell Oral Tablet 00 ) May interfere w/enteral feedings Take With Food acetaminoph No Notes: Do M emoria en-codeine 4-10 not exceed l #3 00:12: 4gm/day of [place] acetaminop hen. (Same as: Tylenol with Codeine # 3) acetaminoph No Notes: Do M emoria en-codeine 4-10 not exceed l #3 00:12: 4gm/day of [place] acetaminop hen. (Same as: Tylenol with Codeine # 3) acetaminoph No Notes: Do M emoria en-codeine 4-10 not exceed l #3 00:12: 4gm/day of [place] acetaminop hen. (Same as: Tylenol with Codeine # 3) acetaminoph No Notes: Do M emoria en-codeine 4-10 not exceed l #3 00:12: 4gm/day of [place] acetaminop hen. (Same as: Tylenol with Codeine # 3) acetaminoph No Notes: Do M emoria en-codeine 4-10 not exceed l #3 00:12: 4gm/day of [place] acetaminop hen. (Same as: Tylenol with Codeine # 3) acetaminoph No Notes: Do M emoria en-codeine 4-10 not exceed l #3 00:12: 4gm/day of [place] acetaminop hen. (Same as: Tylenol with Codeine # 3) acetaminoph No Notes: Do M emoria en-codeine 4-10 not exceed l #3 00:12: 4gm/day of [place] acetaminop hen. (Same as: Tylenol with Codeine [...] tab, l Tablet 22:00: Route: PO, Skylar [facility] Drug form: TAB, BID, Dosing [...] oria 4-09 tab, l 22:00: Route: PO, [place] 00 Drug form: TAB, BID, Dosing Weight 97.273, kg, Start date: 08/29/20 17:00:00 CDT, Duration: 30 day, Stop date: 09/28/20 9:00:00 CDT metoprolol 2020-0 No 100 mg, 1 Me moria tartrate 4- tab, l 22:00: Route: PO, [place] 00 Drug form: TAB, BID, Dosing Weight [...] oria 4-09 tab, l 22:00: Route: PO, [place] Drug form: TAB, BID, Dosing Weight 97.273, [...] a 08-29 (Same As: l 22:00: BuSpar) [place] 00 Lisinopril 2020-0 No 40 mg, 1 [...] Notes: Memoria 08-29 (Same l 17:07: as:MORPhin [place] 00 e Sulfate) Morphine No Notes: Memoria 4-09 (Same l 17:07: as:MORPhin [place] 00 e Sulfate) Morphine No Notes: Memoria 4-09 (Same l 17:07: as:MORPhin [place] 00 e Sulfate) Morphine No Notes: Memoria 4- (Same l 17:07: as:MORPhin [place] 00 e Sulfate) Morphine No Notes: Memoria 4-09 (Same l 17:07: as:MORPhin [place] 00 e Sulfate) Morphine No Notes: Memoria 4-09 (Same l 17:07: as:MORPhin [place] 00 e Sulfate) Morphine No Notes: Memoria 4- (Same l 17:07: as:MORPhin [place] 00 e Sulfate) buPROPion 0 No 150 [...] 30 tab, 0 coated Refill(s), tablet Pharmacy: [facility], 162.56, cm, 08/29/20 5:30:00 CDT, Height, 97.273, kg, 08/29/20 5:30:00 CDT, Weight pantoprazol 2020-0 Yes 40 mg = 1 M emoria e 40 mg 4-09 tab, PO, l oral 15:27: Daily, # [place] enteric 00 30 tab, 0 coated Refill(s), tablet Pharmacy: [facility], 162.56, cm, 08/29/20 5:30:00 CDT, Height, 97.273, kg, 08/29/20 5:30:00 CDT, Weight pantoprazol 2020-0 Yes 40 mg = 1 M emoria e 40 mg 4-09 tab, PO, l oral 15:27: Daily, # [place] enteric 00 30 tab, 0 coated Refill(s), tablet [facility]: [facility], 162.56, cm, 08/29/20 5:30:00 CDT, Height, 97.273, kg, 08/29/20 5:30:00 CDT, Weight pantoprazol 2021-0 Yes 40 mg = 1 M emoria e 40 mg 4-09 tab, PO, l oral 15:27: Daily, # [place] enteric 00 30 tab, 0 coated Refill(s), tablet Pharm[facility]: [facility], 162.56, cm, 08/29/20 5:30:00 CDT, Height, 97.273, kg, 08/29/20 5:30:00 CDT, Weight pantoprazol 2021-0 Yes 40 mg = 1 M emoria e 40 mg 4-09 tab, PO, l oral 15:27: Daily, # [place] enteric 00 30 tab, 0 coated Refill(s), tablet Pharm[facility]: [facility] [place], 162.56, cm, 08/29/20 5:30:00 CDT, Height, 97.273, kg, 08/29/20 5:30:00 CDT, Weight pantoprazol 2021-0 Yes 40 mg = 1 M emoria e 40 mg 4-09 tab, PO, l oral 15:27: Daily, # [place] enteric 00 30 tab, 0 coated Refill(s), tablet Pharm[facility]: [facility], 162.56, cm, 08/29/20 5:30:00 CDT, Height, 97.273, kg, 08/29/20 5:30:00 CDT, Weight pantoprazol 2021-0 Yes 40 mg = 1 M emoria e 40 mg 4-09 tab, PO, l oral 15:27: Daily, # [place] enteric 00 30 tab, 0 coated Refill(s), tablet Pharm[facility]: [facility], 162.56, cm, 08/29/20 5:30:00 CDT, Height, 97.273, kg, 08/29/20 5:30:00 CDT, Weight pantoprazol 2021-0 No 40 mg = 1 M emoria e 40 mg 4-09 tab, PO, l oral 15:26: Daily, # [place] enteric 00 30 tab, 0 coated Refill(s) tablet sucralfate 2020-0 Yes 1 gm = 1 Mem oria 1 g oral 4-09 tab, PO, l tablet 15:26: Q12H, # 28 Skylar nn 00 tab, 0 Refill(s), Pharmacy: [facility], 162.56, cm, 08/29/20 5:30:00 CDT, Height, 97.273, kg, 08/29/20 5:30:00 CDT, Weight pantoprazol 2020-0 No 40 mg = 1 M emoria e 40 mg 4-09 tab, PO, l oral 15:26: Daily, # [place] enteric 00 30 tab, 0 coated Refill(s) tablet sucralfate 2020-0 Yes 1 gm = 1 Mem oria 1 g oral 4-09 tab, PO, l tablet 15:26: Q12H, # 28 Skylar nn 00 tab, 0 Refill(s), Pharmacy: [place] [id number], 162.56, cm, 08/29/20 5:30:00 CDT, Height, 97.273, kg, 08/29/20 5:30:00 CDT, Weight pantoprazol 2020-0 No 40 mg = 1 M emoria e 40 mg 4-09 tab, PO, l oral 15:26: Daily, # [place] enteric 00 30 tab, 0 coated Refill(s) tablet sucralfate 2020-0 Yes 1 gm = 1 Mem oria 1 g oral 4-09 tab, PO, l tablet 15:26: Q12H, # 28 Skylar nn 00 tab, 0 Refill(s), Pharmacy: [place] [id number], 162.56, cm, 08/29/20 5:30:00 CDT, Height, 97.273, kg, 08/29/20 5:30:00 CDT, Weight pantoprazol 2020-0 No 40 mg = 1 M emoria e 40 mg 4-09 tab, PO, l oral 15:26: Daily, # [place] enteric 00 30 tab, 0 coated Refill(s) tablet sucralfate 2020-0 Yes 1 gm = 1 Mem oria 1 g oral 4-09 tab, PO, l tablet 15:26: Q12H, # 28 Skylar nn 00 tab, 0 Refill(s), Pharmacy: [facility], 162.56, cm, 08/29/20 5:30:00 CDT, Height, 97.273, kg, 08/29/20 5:30:00 CDT, Weight pantoprazol 2020-0 No 40 mg = 1 M emoria e 40 mg 4-09 tab, PO, l oral 15:26: Daily, # [place] enteric 00 30 tab, 0 coated Refill(s) tablet sucralfate 2020-0 Yes 1 gm = 1 Mem oria 1 g oral 4-09 tab, PO, l tablet 15:26: Q12H, # 28 Skyl[place] nn 00 tab, 0 Refill(s), Pharmacy: [facility], 162.56, cm, 08/29/20 5:30:00 CDT, [...] Skylar nn 00 tab, 0 Refill(s), Pharmacy: [place] [id number], 162.56, cm, 08/29/20 5:30:00 CDT, Height, 97.273, [...] nn 00 tab, 0 Refill(s), Pharmacy: [facility], 162.56, cm, 08/29/20 5:30:00 CDT, Height, 97.273, kg, 08/29/20 5:30:00 CDT, Weight Saline No Notes: Memoria Flush 0.9% 4-09 (Same as: l 15:25: BD [place] 00 Posiflush) Lorazepam No Notes: Memori a 4-09 (Same as: l 15:25: Ativan) [place] Saline No Notes: Memoria Flush 0.9% 4-09 (Same as: l 15:25: BD [place] 00 Posiflush) Lorazepam No Notes: Memori a 4-09 (Same as: l 15:25: Ativan) [place] Saline No Notes: Memoria Flush 0.9% 4-09 (Same as: l 15:25: BD [place] 00 Posiflush) Saline No Notes: Memoria Flush 0.9% 4-09 (Same as: l 15:25: BD [place] 00 Posiflush) Lorazepam No Notes: Memori a 4-09 (Same as: l 15:25: Ativan) [place] 00 Lorazepam No Notes: Memori a 4-09 (Same as: l 15:25: Ativan) [place] 00 Saline No Notes: Memoria Flush 0.9% 4-09 (Same as: l 15:25: BD [place] 00 Posiflush) Lorazepam No Notes: Memori a 4-09 (Same as: l 15:25: Ativan) [place] Saline No Notes: Memoria Flush 0.9% 4-09 (Same as: l 15:25: BD [place] 00 Posiflush) Lorazepam No Notes: Memori a 4-09 (Same as: l 15:25: Ativan) [place] Saline No Notes: Memoria Flush 0.9% 4-09 (Same as: l 15:25: BD [place] 00 Posiflush) Lorazepam No Notes: Memori a 4-09 (Same as: l 15:25: Ativan) [place] Isuprel HCl No Route: IV, Memoria (ANES) [...] Drug form: l mg + 15:00: INJ, [place] Dosing Weight 97.3, kg, Start date: 08/29/20 [...] 08-29 Drug form: l 14:18: INJ, ONCE, [place] 00 Stop date: 08/29/20 9:18:00 CDT heparin 202-0 No Route: IV, Caesar lisa (ANES) 08-29 Drug form: l 14:18: INJ, ONCE, Stop date: 08/29/20 9:18:00 CDT heparin 202-0 No Route: IV, Caesar lisa (ANES) 08-29 Drug form: l 14:18: INJ, ONCE, [place] 00 Stop date: 08/29/20 9:18:00 CDT heparin 2020-0 No Route: IV, Caesar lisa (ANES) 08-29 Drug form: l 14:18: INJ, ONCE, [place] Stop date: 08/29/20 9:18:00 CDT Labetalol 2020-0 [...] oria ne 08-29 Route: l 14:01: IVP, [place] 00 Q5Min, Dosing Weight 97.273, kg, PRN [...] Memori a 08-29 Route: l 14:01: IVP, [place] 00 Q2MIN, Dosing Weight 97.273, kg, PRN [...] Memori a 08-29 Route: l 14:01: IVP, [place] 00 Q5Min, Dosing Weight 97.273, kg, PRN [...] oria ne 08-29 Route: l 14:01: IVP, [place] 00 Q5Min, Dosing Weight 97.273, kg, PRN [...] Memori a 08-29 Route: l 14:01: IVP, [place] 00 Q5Min, Dosing Weight 97.273, kg, PRN [...] lisa 08-29 Route: l 14:01: IVP, PRN, [place] 00 Dosing Weight 97.273, kg, PRN Benzodiaze pine Reversal, Initial dose, Start date: 08/29/20 9:01:00 CDT, Duration: 30 day, Stop date: 09/28/20 9:00:00 CDT Naloxone 1-0 No 0.4 mg, Memori a 08-29 Route: l 14:01: IVP, [place] 00 Q2MIN, Dosing Weight 97.273, kg, PRN Narcotic Reversal, Start date: 08/29/20 9:01:00 CDT, Duration: 8 doses or times, Stop date: Limited # of times Ondansetron 1-0 No 4 mg, Memor ia 08-29 Route: l 14:01: IVP, ONCE, [place] 00 Dosing Weight 97.273, kg, PRN Nausea & Vomiting, Start date: 08/29/20 9:01:00 CDT Labetalol 1-0 No 10 mg, Memori a 08-29 Route: l 14:01: IVP, [place] 00 Q5Min, Dosing Weight 97.273, kg, PRN [...] oria ne 08-29 Route: l 14:01: IVP, [place] 00 Q5Min, Dosing Weight 97.273, kg, PRN [...] 08-29 Route: PO, l 14:01: Drug form: [place] 00 TAB, ONCE, Dosing Weight 97.273, kg, [...] oria ne 08-29 Route: l 14:01: IVP, [place] 00 Q5Min, Dosing Weight 97.273, kg, PRN Pain Score 7-10, Start date: 08/29/20 9:01:00 CDT, Duration: 4 doses or times, Stop date: Limited # of times Flumazenil 2021-0 No 0.2 mg, Caesar lisa 08-29 Route: l 14:01: IVP, PRN, [place] 00 Dosing Weight 97.273, kg, PRN Benzodiaze [...] lisa 08-29 Route: l 14:01: IVP, PRN, [place] 00 Dosing Weight 97.273, kg, PRN Benzodiaze pine Reversal, Initial dose, Start date: 08/29/20 9:01:00 CDT, Duration: 30 day, Stop date: 09/28/20 9:00:00 CDT Ondansetron 2021-0 No 4 mg, Memor ia 08-29 Route: l 14:01: IVP, ONCE, [place] 00 Dosing Weight 97.273, kg, PRN Nausea & Vomiting, Start date: 08/29/20 9:01:00 CDT Naloxone 2021-0 No 0.4 mg, Memori a 08-29 Route: l 14:01: IVP, [place] 00 Q2MIN, Dosing Weight 97.273, kg, PRN Narcotic Reversal, Start date: 08/29/20 9:01:00 CDT, Duration: 8 doses or times, Stop date: Limited # of times Ondansetron 2021-0 No 4 mg, Memor ia 08-29 Route: l 14:01: IVP, ONCE, [place] 00 Dosing Weight 97.273, kg, PRN Nausea [...] 08-29 Route: PO, l 14:01: Drug form: [place] 00 TAB, ONCE, Dosing Weight 97.273, kg, [...] lisa 08-29 Route: l 14:01: IVP, PRN, [place] 00 Dosing Weight 97.273, kg, PRN Benzodiaze [...] lisa 08-29 Route: l 14:01: IVP, PRN, [place] 00 Dosing Weight 97.273, kg, PRN Benzodiaze [...] ia 08-29 Route: l 14:01: IVP, ONCE, [place] 00 Dosing Weight 97.273, kg, PRN Nausea [...] CDT rocuronium 2020-0 No Route: IV, Elbert suarezria (ANES) 08-29 Drug form: l 13:52: [...] Drug form: l 10 13:15: INJ, Start [place] microgram date: 08/29/20 8:15:00 CDT, Stop date: 08/29/20 9:15:00 CDT norepinephr No Route: IV, Memoria ine (ANES) 08-29 Drug form: l 10 13:15: INJ, Start [place] microgram date: 08/29/20 8:15:00 CDT, Stop date: [...] Drug form: l 10 13:15: INJ, Start [place] microgram 00 date: 08/29/20 8:15:00 CDT, Stop date: 08/29/20 9:15:00 CDT Sodium 2020-0 No Route: IV, Memor ia Chloride 4-09 Total l 0.9% IV 12:30: Volume: [place] (ANES) 1000 00 1,000, mL Start date: [...] 4-09 Total l 0.9% IV 12:30: Volume: [place] (ANES) 1000 00 1,000, mL Start date: [...] PO, l Hydrochlori 11:42: Q24H, # 30 [place] de 150 MG 00 tab, 0 Extended Refill(s) Release Tablet 24 HR Yes 150 mg = 1 Memori a Bupropion 4-09 tab, PO, l Hydrochlori 11:42: Q24H, # 30 [place] de 150 MG 00 tab, 0 Extended Refill(s) Release Tablet 24 HR Yes 150 mg = 1 Memori a Bupropion 4-09 tab, PO, l Hydrochlori 11:42: Q24H, # 30 [place] de 150 MG 00 tab, 0 Extended Refill(s) Release Tablet 24 HR Yes 150 mg = 1 Memori a Bupropion 4-09 tab, PO, l Hydrochlori 11:42: Q24H, # 30 [place] de 150 MG 00 tab, 0 Extended Refill(s) Release Tablet 24 HR Yes 150 mg = 1 Memori a Bupropion 4-09 tab, PO, l Hydrochlori 11:42: Q24H, # 30 [place] de 150 MG 00 tab, 0 Extended Refill(s) Release Tablet 24 HR Yes 150 mg = 1 Memori a Bupropion 4-09 tab, PO, l Hydrochlori 11:42: Q24H, # 30 [place] de 150 MG 00 tab, 0 Extended Refill(s) Release Tablet 24 HR Yes 150 mg = 1 Memori a Bupropion 4-09 tab, PO, l Hydrochlori 11:42: Q24H, # 30 [place] de 150 MG 00 tab, 0 Extended Refill(s) Release Tablet apixaban 5 2020-0 Yes 5 mg, PO, Me moria MG Oral 08-29 Q12H, tab, l Tablet 11:41: 0 [place] [Eliquis] 00 Refill(s), For Atrial Fibrilatio n apixaban 5 2020-0 Yes 5 mg, PO, Me moria MG Oral 08-29 Q12H, tab, l Tablet 11:41: 0 [place] [Eliquis] 00 Refill(s), For Atrial Fibrilatio n [...] tab, PO, l tablet 11:38: Daily, # [place] 00 90 tab, 3 Refill(s) AMIODarone 2020-0 Yes 200 mg = 1 M emoria 200 mg oral 4-09 tab, PO, l tablet 11:38: Daily, # [place] 00 90 tab, 3 Refill(s) AMIODarone 2020-0 Yes 200 mg = 1 M emoria 200 mg oral 4-09 tab, PO, l tablet 11:38: Daily, # [place] 00 90 tab, 3 Refill(s) AMIODarone 2020-0 Yes 200 mg = 1 M emoria 200 mg oral 4-09 tab, PO, l tablet 11:38: Daily, # [place] 00 90 tab, 3 Refill(s) AMIODarone 2020-0 [...] [facility]. [facility] Yes 400mg Q.5D Take 400 [...] times a day. [facility] Yes 400mg Q.5D Take 400 Met [facility] 400 mg 3-[address] tablet 00:00: mouth 2 [facility] 00 (two) l times a day. [facility] Yes 400mg Q.5D Take 400 Met [facility] 400 mg 3-[address] tablet 00:00: mouth 2 [facility] 00 (two) l times a day. [facility] Yes 400mg Q.5D Take 400 [...] Unive rsity of PFIZER VACCINE 00:00:00 [facility] SARS-COV-2 COVID-19 2020-07-23 Completed Unive rsity of PFIZER VACCINE 00:00:00 [facility] SARS-COV-2 COVID-19 2020-07-23 Completed Unive rsity of PFIZER VACCINE 00:00:00 [facility] SARS-COV-2 COVID-19 2020-07-23 Completed Unive rsity of PFIZER VACCINE 00:00:00 [facility] SARS-COV-2 COVID-19 2020-07-23 Completed Unive rsity of PFIZER VACCINE 00:00:00 [facility] SARS-COV-2 COVID-19 2020-07-23 Completed Unive rsity of PFIZER VACCINE 00:00:00 [facility] SARS-COV-2 COVID-19 2020-07-23 Completed Unive rsity of PFIZER VACCINE 00:00:00 [facility] SARS-COV-2 COVID-19 2020-07-23 Completed Unive rsity of PFIZER VACCINE 00:00:00 [facility] SARS-COV-2 COVID-19 2020-07-23 Completed Unive rsity of PFIZER VACCINE 00:00:00 [facility] SARS-COV-2 COVID-19 2020-07-23 Completed Unive rsity of PFIZER VACCINE 00:00:00 [facility] SARS-COV-2 COVID-19 2020-07-23 Completed Unive rsity [...] [facility] PFIZER COVID-19 2020-07-23 Completed [facility]00 [facility] PFIZER COVID-19 2020-07-23 Completed [facility] 00:00:00 [facility] PFIZER COVID-19 2020-07-23 Completed [facility] 00:00:00 [facility] PFIZER COVID-19 2020-07-23 Completed [facility] 00:00:00 [facility] PFIZER COVID-19 2020-07-23 Completed [facility] PFIZER COVID-19 2020-07-23 Completed [facility]00 [facility] PFIZER COVID-19 2020-07-23 Completed [facility] 00:00:00 [facility] PFIZER COVID-19 2020-07-23 Completed [facility] 00:00:00 [facility] PFIZER COVID-19 2020-07-23 Completed [facility] 00:00:00 [facility] PFIZER COVID-19 2020-07-23 Completed [facility] 00:00:00 [facility] PFIZER COVID-19 2020-07-23 Completed [facility] 00:00:00 [facility] PFIZER COVID-19 2020-07-23 Completed [facility] 00:00:00 [facility] PFIZER COVID-19 2020-07-23 Completed [facility] 00:00:00 [facility] PFIZER COVID-19 2020-07-23 Completed [facility]ACC[facility] 00:00:00 [facility] P[facility]ZER COVID-19 2020-07-23 Completed [facility] VACC[facility] 00:00:00 [facility] PFI[facility]ER COVID-19 2020-07-23 Completed [facility]ACC[facility] 00:00:00 [facility] PFIZER COVID-19 2020-07-23 Completed [facility] VACC[facility] 00:00:00 [facility] PFIZER COVID-19 2020-07-23 Completed [facility] VACC[facility] 00:00:00 [facility] PFI[facility]ER COVID-19 2020-07-23 Completed [facility]ACC[facility] 00:00:00 [facility] PFI[facility] COVID-19 2020-07-23 Completed [facility] VACC[facility] 00:00:00 [facility] PFIZER COVID-19 2020-07-23 Completed [facility] VACC[facility] 00:00:00 [facility] P[facility] COVID-19 2020-07-23 Completed [facility] VACC[facility] 00:00:00 [facility] PFIZER COVID-19 2020-07-23 Completed [facility]ACC[facility] 00:00:00 [facility] PFI[facility]ER COVID-19 2020-07-23 Completed [facility]ACC[facility] 00:00:00 [facility] PFIZER COVID-19 2020-07-23 Completed [facility] VACC[facility] 00:00:00 [facility] PFIZER COVID-19 2020-07-23 Completed [facility] VACC[facility] 00:00:00 [facility] PFIZER COVID-19 2020-07-23 Completed [facility]ACC[facility] 00:00:00 [facility] PFIZER COVID-19 2020-07-23 Completed [facility] VACC[facility] 00:00:00 [facility] PFIZER COVID-19 2020-07-23 Completed [facility] VACC[facility] 00:00:00 [facility] PFIZER COVID-19 2020-07-23 Completed [facility] VACC[facility] 00:00:00 [facility] PFIZER COVID-19 2020-07-23 Completed [facility] VACC[facility] 00:00:00 [facility] PFIZER COVID-19 2020-07-23 Completed [facility]ACC[facility] 00:00:00 [facility] PFI[facility]ER COVID-19 2020-07-23 Completed [facility] VACC[facility] 00:00:00 [facility] PFIZER COVID-19 2020-07-23 Completed [facility] VACC[facility] 00:00:00 [facility] PFIZER COVID-19 2020-07-23 Completed [facility] VACC[facility] 00:00:00 [facility] PFIZER COVID-19 2020-07-23 Completed [facility] VACC[facility] 00:00:00 [facility] PEG COVID-19 2020-07-23 Completed [facility] VACC[facility] 00:00:00 [facility] PFIZER COVID-19 2020-07-23 Completed [facility] VACC[facility] 00:00:00 [facility] PEG COVID-19 2020-07-23 Completed [facility] VACC[facility] 00:00:00 [facility] PEG COVID-19 2020-07-23 Completed [facility]00 [facility] PEG COVID-19 2020-07-23 Completed [facility]00 [facility] PEG COVID-19 2020-07-23 Completed [facility]:00:00 [facility] PEG COVID-19 2020-07-23 Completed [facility] 00:00:00 [facility] PEG COVID-19 2020-07-23 Completed [facility] 00:00:00 [facility] PEG COVID-19 2020-07-23 Completed [facility] 00:00:00 [facility] PEG COVID-19 2020-07-23 Completed [facility] 00:00:00 [facility] PEG COVID-19 2020-07-23 Completed [facility] 00:00:00 [facility] PEG COVID-19 2020-07-23 Completed [facility] 00:00:00 [facility] PFIZER COVID-19 2020-07-23 Completed [facility] 00:00:00 [facility] PEG COVID-19 2020-07-23 Completed [facility] 00:00:00 [facility] PFIZER COVID-19 2020-07-23 Completed [facility] 00:00:00 [facility] PFIZER COVID-19 2020-07-23 Completed [facility] 00:00:00 [facility] PFIZER COVID-19 2020-07-23 Completed [facility] 00:00:00 [facility] PFIZER COVID-19 2020-07-23 Completed [facility] 00:00:00 [facility] PFIZER COVID-19 2020-07-23 Com[facility]00 [facility] PFIZER COVID-19 2020-07-23 Completed [facility] 00:00:00 [facility] PFIZER COVID-19 2020-07-23 Completed [facility] 00:00:00 [facility] PFIZER COVID-19 2020-07-23 Completed [facility] 00:00:00 [facility] PFIZER COVID-19 2020-07-23 Completed [facility] 00:00:00 [facility] PFIZER COVID-19 2020-07-23 Completed [facility] 00:00:00 [facility] PFIZER COVID-19 2020-07-23 Completed [facility] 00:00:00 [facility] PFIZER COVID-19 2020-07-23 Completed [facility] 00:00:00 [facility] PFIZER COVID-19 2020-07-23 Completed [facility] 00:00:00 [facility] PFIZER COVID-19 2020-07-23 Completed [facility] 00:00:00 [facility] PFIZER COVID-19 2020-07-23 Completed [facility] 00:00:00 [facility] PFIZER COVID-19 2020-07-23 Completed [facility] 00:00:00 [facility] PFIZER COVID-19 2020-07-23 Completed [facility] 00:00:00 [facility] PFIZER COVID-19 2020-07-23 Completed [facility] 00:00:00 [facility] SARS-COV-2 COVID-19 2020-07-02 Completed [facility] [...] [facility] [place] [facility] PFIZER COVID-19 2020-07-02 Completed [facility]:00:00 [facility] PFIZER COVID-19 2020-07-02 Com[facility]00 [facility] PFIZER COVID-19 2020-07-02 Completed [facility] 00:00:00 [facility] PFIZER COVID-19 2020-07-02 Completed [facility] 00:00:00 [facility] PFIZER COVID-19 2020-07-02 Completed [facility] 00:00:00 [facility] PFIZER COVID-19 2020-07-02 Completed [facility] 00:00:00 [facility] PFIZER COVID-19 2020-07-02 Completed [facility] 00:00:00 [facility] PFIZER COVID-19 2020-07-02 Completed [facility] 00:00:00 [facility] PFIZER COVID-19 2020-07-02 Completed [facility] 00:00:00 [facility] PFIZER COVID-19 2020-07-02 Completed [facility] 00:00:00 [facility] PFIZER COVID-19 2020-07-02 Completed [facility] 00:00:00 [facility] PFIZER COVID-19 2020-07-02 Completed [facility] 00:00:00 [facility] PFIZER COVID-19 2020-07-02 Completed [facility] 00:00:00 [facility] PFIZER COVID-19 2020-07-02 Completed [facility] 00:00:00 [facility] PFIZER COVID-19 2020-07-02 Completed [facility] 00:00:00 [facility] PFIZER COVID-19 2020-07-02 Completed [facility] 00:00:00 [facility] PFIZER COVID-19 2020-07-02 Completed [facility] 00:00:00 [facility] PFIZER COVID-19 2020-07-02 Completed [facility] 00:00:00 [facility] PFIZER COVID-19 2020-07-02 Completed [facility] 00:00:00 [facility] PFIZER COVID-19 2020-07-02 Completed [facility] 00:00:00 [facility] PFIZER COVID-19 2020-07-02 Completed [facility] 00:00:00 [facility] PFIZER COVID-19 2020-07-02 Completed [facility] 00:00:00 [facility] PFIZER COVID-19 2020-07-02 Completed [facility] 00:00:00 [facility] PFIZER COVID-19 2020-07-02 Completed [facility] 00:00:00 [facility] PFIZER COVID-19 2020-07-02 Completed [facility] 00:00:00 [facility] PFIZER COVID-19 2020-07-02 Completed [facility] 00:00:00 [facility] PFIZER COVID-19 2020-07-02 Completed [facility] 00:00:00 [facility] PFIZER COVID-19 2020-07-02 Completed [facility] 00:00:00 [facility] PFIZER COVID-19 2020-07-02 Completed [facility] 00:00:00 [facility] PEG FELIZID-19 2020-07-02 Completed [facility] 00:00:00 [facility] PFIZER COVID-19 2020-07-02 Completed [facility] 00:00:00 [facility] PFIZER COVID-19 2020-07-02 Completed [facility] 00:00:00 [facility] PFIZER COVID-19 2020-07-02 Completed [facility] 00:00:00 [facility] PFIZER COVID-19 2020-07-02 Completed [facility] 00:00:00 [facility] PEG FELIZID-19 2020-07-02 Completed [facility] 00:00:00 [facility] PEG FELIZID-19 2020-07-02 Completed [facility] 00:00:00 [facility] PEG COVID-19 2020-07-02 Completed [facility] 00:00:00 [facility] PFIZER COVID-19 2020-07-02 Completed [facility] 00:00:00 [facility] PFIZER COVID-19 2020-07-02 Completed [facility] 00:00:00 [facility] PEG COVID-19 2020-07-02 Completed [facility] 00:00:00 [facility] PFIZER COVID-19 2020-07-02 Completed [facility] 00:00:00 [facility] PFIZER COVID-19 2020-07-02 Completed [facility] 00:00:00 [facility] PFIZER COVID-19 2020-07-02 Completed [facility] 00:00:00 [facility] PFIZER COVID-19 2020-07-02 Completed [facility] 00:00:00 [facility] PFIZER COVID-19 2020-07-02 Completed [facility] 00:00:00 [facility] PFIZER COVID-19 2020-07-02 Completed [facility] 00:00:00 [facility] PFIZER COVID-19 2020-07-02 Completed [facility] 00:00:00 [facility] PFIZER COVID-19 2020-07-02 Completed [facility] 00:00:00 [facility] PFIZER COVID-19 2020-07-02 Com[facility]00 [facility] PFIZER COVID-19 2020-07-02 Completed [facility] 00:00:00 [facility] PFIZER COVID-19 2020-07-02 Com[facility]00 [facility] PFIZER COVID-19 2020-07-02 Completed [facility] 00:00:00 [facility] PFIZER COVID-19 2020-07-02 Completed [facility] 00:00:00 [facility] PFIZER COVID-19 2020-07-02 Completed [facility] 00:00:00 [facility] PFIZER COVID-19 2020-07-02 Completed [facility] 00:00:00 [facility] PFIZER COVID-19 2020-07-02 Completed [facility] 00:00:00 [facility] PFIZER COVID-19 2020-07-02 Completed [facility] 00:00:00 [facility] PFIZER COVID-19 2020-07-02 Completed [facility] 00:00:00 [facility] PFIZER COVID-19 2020-07-02 Completed [facility] 00:00:00 [facility] PFIZER COVID-19 2020-07-02 Completed [facility] 00:00:00 [facility] PFIZER COVID-19 2020-07-02 Completed [facility] 00:00:00 [facility] PFIZER COVID-19 2020-07-02 Completed [facility] 00:00:00 [facility] PFIZER COVID-19 2020-07-02 Completed [facility] 00:00:00 [facility] PFIZER COVID-19 2020-07-02 Completed [facility] 00:00:00 [facility] PFIZER COVID-19 2020-07-02 Completed [facility] 00:00:00 [facility] PFIZER COVID-19 2020-07-02 Completed [facility] 00:00:00 [facility] PFIZER COVID-19 2020-07-02 Completed [facility] 00:00:00 [facility] PFIZER COVID-19 2020-07-02 Completed [facility]:00:00 [facility] Influenza Virus 2017-03-08 Completed [facility] Vaccine 00:00:00 [facility] Influenza Virus 2017-03-08 Completed [facility] Vaccine 00:00:00 [facility] Influenza Virus 2017-03-08 Completed [facility] Vaccine 00:00:00 [facility] Influenza Virus 2017-03-08 Completed [facility] Vaccine 00:00:00 [facility] Influenza Virus 2017-03-08 Completed [facility] Vaccine 00:00:00 [facility] Influenza Virus 2017-03-08 Completed [facility] Vaccine 00:00:00 [facility] Influenza Virus 2017-03-08 Completed [facility] Vaccine 00:00:00 [facility] Influenza Virus 2017-03-08 Completed [facility] Vaccine 00:00:00 [facility] Influenza Virus 2017-03-08 Completed [facility] Vaccine 00:00:00 [facility] Influenza Virus 2017-03-08 Completed [facility] Vaccine 00:00:00 [facility] Influenza Virus 2017-03-08 Completed [facility] Vaccine 00:00:00 [facility] Influenza Virus 2017-03-08 Completed [facility] Vaccine 00:00:00 [facility] Influenza Virus 2017-03-08 Completed [facility] Vaccine 00:00:00 [facility] Influenza Virus 2017-03-08 Completed [facility] Vaccine 00:00:00 [facility] Influenza Virus 2017-03-08 Completed [facility] Vaccine 00:00:00 [facility] Influenza Virus 2017-03-08 Completed [facility] Vaccine 00:00:00 [facility] Influenza Virus 2017-03-08 Completed [facility] Vaccine 00:00:00 [facility] Influenza Virus 2017-03-08 Completed [facility] Vaccine 00:00:00 [facility] Influenza Virus 2017-03-08 Completed [facility] Vaccine 00:00:00 [facility] Influenza Virus 2017-03-08 Completed [facility] Vaccine 00:00:00 [facility] Influenza Virus 2017-03-08 Completed [facility] Vaccine 00:00:00 [facility] Influenza Virus 2017-03-08 Completed [facility] Vaccine 00:00:00 [facility] Influenza Virus 2017-03-08 Completed [facility] Vaccine 00:00:00 [facility] Influenza Virus 2017-03-08 Completed [facility] Vaccine 00:00:00 [facility] Influenza Virus 2014-01-30 Completed [facility] Vaccine (3+ yrs) 00:00:00 [facility] Pneumococcal 13 2014-01-30 Completed [facility] of Conjugate, PCV13 00:00:00 [facility] (Prevnar 13) [place] Influenza Virus 2014-01-30 Completed [facility] Vaccine (3+ yrs) 00:00:00 [place] [facility] Pneumococcal 13 2014-01-30 Completed [facility] Conjugate, PCV13 00:00:00 [place] [facility] (Prevnar 13) Branch Influenza Virus 2014-01-30 Completed [facility] Vaccine (3+ yrs) 00:00:00 [place] [facility] Pneumococcal 13 2014-01-30 Completed [facility] Conjugate, PCV13 00:00:00 [place] [facility] (Prevnar 13) Branch Influenza Virus 2014-01-30 Completed [facility] Vaccine (3+ yrs) 00:00:00 [place] [facility] Pneumococcal 13 2014-01-30 Completed [facility] Conjugate, PCV13 00:00:00 [place] [facility] (Prevnar 13) Branch Influenza Virus 2014-01-30 Completed [facility] Vaccine (3+ yrs) 00:00:00 [place] [facility] Pneumococcal 13 2014-01-30 Completed [facility] of Conjugate, PCV13 00:00:00 [facility] (Prevnar 13) Branch Influenza Virus 2014-01-30 Completed [facility] of Vaccine (3+ yrs) 00:00:00 [facility] Pneumococcal 13 2014-01-30 Completed [facility] of Conjugate, PCV13 00:00:00 [place] [facility] (Prevnar 13) Branch Influenza Virus 2014-01-30 Completed [facility] Vaccine (3+ yrs) 00:00:00 [facility] Pneumococcal 13 2014-01-30 Completed [facility] of Conjugate, PCV13 00:00:00 [facility] (Prevnar 13) Branch Influenza Virus 2014-01-30 Completed [facility] Vaccine (3+ yrs) 00:00:00 [facility] Pneumococcal 13 2014-01-30 Completed [facility] of Conjugate, PCV13 00:00:00 [facility] (Prevnar 13) Branch Influenza Virus 2014-01-30 Completed [facility] of Vaccine (3+ yrs) 00:00:00 [facility] Pneumococcal 13 2014-01-30 Completed [facility] of Conjugate, PCV13 00:00:00 [facility] (Prevnar 13) Branch Influenza Virus 2014-01-30 Completed [facility] of Vaccine (3+ yrs) 00:00:00 [facility] Pneumococcal 13 2014-01-30 Completed [facility] of Conjugate, PCV13 00:00:00 [place] [facility] (Prevnar 13) Branch Influenza Virus 2014-01-30 Completed [facility] Vaccine (3+ yrs) 00:00:00 [place] [facility] Pneumococcal 13 2014-01-30 Completed [facility] of Conjugate, PCV13 00:00:00 [place] [facility] (Prevnar 13) Branch Influenza Virus 2014-01-30 Completed [facility] Vaccine (3+ yrs) 00:00:00 [place] [facility] Pneumococcal 13 2014-01-30 Completed [facility] of Conjugate, PCV13 00:00:00 [place] [facility] (Prevnar 13) Branch Influenza Virus 2014-01-30 Completed [facility] Vaccine (3+ yrs) 00:00:00 [place] [facility] Pneumococcal 13 2014-01-30 Completed [facility] of Conjugate, PCV13 00:00:00 [facility] (Prevnar 13) Branch Influenza Virus 2014-01-30 Completed [facility] of Vaccine (3+ yrs) 00:00:00 [facility] Pneumococcal 13 2014-01-30 Completed [facility] of Conjugate, PCV13 00:00:00 [facility] (Prevnar 13) Branch Influenza Virus 2014-01-30 Completed [facility] of Vaccine (3+ yrs) 00:00:00 [facility] Pneumococcal 13 2014-01-30 Completed [facility] of Conjugate, PCV13 00:00:00 [facility] (Prevnar 13) Branch Influenza Virus 2014-01-30 Completed [facility] of Vaccine (3+ yrs) 00:00:00 [facility] Pneumococcal 13 2014-01-30 Completed [facility] of Conjugate, PCV13 00:00:00 [place] [facility] (Prevnar 13) Branch Influenza Virus 2014-01-30 Completed [facility] of Vaccine (3+ yrs) 00:00:00 [facility] Pneumococcal 13 2014-01-30 Completed [facility] of Conjugate, PCV13 00:00:00 [place] [facility] (Prevnar 13) Branch Influenza Virus 2014-01-30 Completed [facility] of Vaccine (3+ yrs) 00:00:00 [facility] Pneumococcal 13 2014-01-30 Completed [facility] of Conjugate, PCV13 00:00:00 [facility] (Prevnar 13) Branch Influenza Virus 2014-01-30 Completed [facility] of Vaccine (3+ yrs) 00:00:00 [facility] Pneumococcal 13 2014-01-30 Completed [facility] of Conjugate, PCV13 00:00:00 [facility] (Prevnar 13) Branch Influenza Virus 2014-01-30 Completed [facility] of Vaccine (3+ yrs) 00:00:00 [facility] Pneumococcal 13 2014-01-30 Completed [facility] of Conjugate, PCV13 00:00:00 [facility] (Prevnar 13) Branch Influenza Virus 2014-01-30 Completed [facility] of Vaccine (3+ yrs) 00:00:00 [facility] Pneumococcal 13 2014-01-30 Completed [facility] of Conjugate, PCV13 00:00:00 [facility] (Prevnar 13) Branch Influenza Virus 2014-01-30 Completed [facility] of Vaccine (3+ yrs) 00:00:00 [facility] Pneumococcal 13 2014-01-30 Completed [facility] of Conjugate, PCV13 00:00:00 [facility] (Prevnar 13) Branch Influenza Virus 2014-01-30 Completed [facility] of Vaccine (3+ yrs) 00:00:00 [facility] Pneumococcal 13 2014-01-30 Completed [facility] of Conjugate, PCV13 00:00:00 [facility] (Prevnar 13) Branch Influenza Virus 2014-01-30 Completed [facility] Vaccine (3+ yrs) 00[facility] [facility] 2014-01-30 Completed [facility] Conjugate, PCV13 00:00:[address] [facility] Pneumococcal 2012-02-16 Completed [facility] o f Polysaccharide, 00:00:00 [facility] ical PPSV23 (PNEUMOVAX) Branch Influenza Virus 2012-02-16 Completed [facility] of Vaccine 00:00:00 [facility] PPD (TB) 2012-02-16 Completed [facility] of 00:00:00 [facility] Pneumococcal 2012-02-16 Completed [facility] o f Polysaccharide, 00:00:00 [facility] ical PPSV23 (PNEUMOVAX) Branch Influenza Virus 2012-02-16 Completed [facility] of Vaccine 00:00:00 [facility] PPD (TB) 2012-02-16 Completed [facility] of 00:00:00 [facility] Pneumococcal 2012-02-16 Completed [facility] f Polysaccharide, 00:00:00 [place] [facility] PPSV23 (PNEUMOVAX) Branch Influenza Virus 2012-02-16 Completed [facility] of Vaccine 00:00:00 [facility] PPD (TB) 2012-02-16 Completed [facility] of 00:00:00 [facility] Pneumococcal 2012-02-16 Completed [facility] o f Polysaccharide, 00:00:00 [place] [facility] PPSV23 (PNEUMOVAX) Branch Influenza Virus 2012-02-16 Completed [facility] of Vaccine 00:00:00 [facility] PPD (TB) 2012-02-16 Completed [facility] of 00:00:00 [facility] Pneumococcal 2012-02-16 Completed [facility] o f Polysaccharide, 00:00:00 [place] [facility] PPSV23 (PNEUMOVAX) Branch Influenza Virus 2012-02-16 Completed [facility] of Vaccine 00:00:00 [facility] PPD (TB) 2012-02-16 Completed [facility] of 00:00:00 [facility] Pneumococcal 2012-02-16 Completed [facility] o f Polysaccharide, 00:00:00 [place] [facility] PPSV23 (PNEUMOVAX) Branch Influenza Virus 2012-02-16 Completed [facility] Vaccine 00:00:00 [facility] PPD (TB) 2012-02-16 Completed [facility] of 00:00:00 [facility] Pneumococcal 2012-02-16 Completed [facility] o f Polysaccharide, 00:00:00 [place] [facility] PPSV23 (PNEUMOVAX) Branch Influenza Virus 2012-02-16 Completed [facility] Vaccine 00:00:00 [facility] PPD (TB) 2012-02-16 Completed [facility] of 00:00:00 [facility] Pneumococcal 2012-02-16 Completed [facility] o f Polysaccharide, 00:00:00 [place] [facility] PPSV23 (PNEUMOVAX) Branch Influenza Virus 2012-02-16 Completed [facility] Vaccine 00:00:00 [facility] PPD (TB) 2012-02-16 Completed [facility] of 00:00:00 [facility] Pneumococcal 2012-02-16 Completed [facility] o f Polysaccharide, 00:00:00 [place] [facility] PPSV23 (PNEUMOVAX) Branch Influenza Virus 2012-02-16 Completed [facility] Vaccine 00:00:00 [facility] PPD (TB) 2012-02-16 Completed [facility] of 00:00:00 [facility] Pneumococcal 2012-02-16 Completed [facility] o f Polysaccharide, 00:00:00 [place] [facility] PPSV23 (PNEUMOVAX) Branch Influenza Virus 2012-02-16 Completed [facility] of Vaccine 00:00:00 [facility] PPD (TB) 2012-02-16 Completed [facility] of 00:00:00 [facility] Pneumococcal 2012-02-16 Completed [facility] o f Polysaccharide, 00:00:00 [place] [facility] PPSV23 (PNEUMOVAX) Branch Influenza Virus 2012-02-16 Completed [facility] of Vaccine 00:00:00 [facility] PPD (TB) 2012-02-16 Completed [facility] of 00:00:00 [facility] Pneumococcal 2012-02-16 Completed [facility] o f Polysaccharide, 00:00:00 [place] [facility] PPSV23 (PNEUMOVAX) Branch Influenza Virus 2012-02-16 Completed [facility] Vaccine 00:00:00 [facility] PPD (TB) 2012-02-16 Completed [facility] of 00:00:00 [facility] Pneumococcal 2012-02-16 Completed [facility] o f Polysaccharide, 00:00:00 [place] [facility] PPSV23 (PNEUMOVAX) Branch Influenza Virus 2012-02-16 Completed [facility] of Vaccine 00:00:00 [facility] PPD (TB) 2012-02-16 Completed [facility] of 00:00:00 [facility] Pneumococcal 2012-02-16 Completed [facility] o f Polysaccharide, 00:00:00 [place] [facility] PPSV23 (PNEUMOVAX) Branch Influenza Virus 2012-02-16 Completed [facility] Vaccine 00:00:00 [facility] PPD (TB) 2012-02-16 Completed [facility] of 00:00:00 [facility] Pneumococcal 2012-02-16 Completed [facility] o f Polysaccharide, 00:00:00 [place] [facility] PPSV23 (PNEUMOVAX) Branch Influenza Virus 2012-02-16 Completed [facility] of Vaccine 00:00:00 [facility] PPD (TB) 2012-02-16 Completed [facility] of 00:00:00 [facility] Pneumococcal 2012-02-16 Completed [facility] o f Polysaccharide, 00:00:00 [place] [facility] PPSV23 (PNEUMOVAX) Branch Influenza Virus 2012-02-16 Completed [facility] of Vaccine 00:00:00 [facility] PPD (TB) 2012-02-16 Completed [facility] of 00:00:00 [facility] Pneumococcal 2012-02-16 Completed [facility] o f Polysaccharide, 00:00:00 [place] [facility] PPSV23 (PNEUMOVAX) Branch Influenza Virus 2012-02-16 Completed [facility] Vaccine 00:00:00 [facility] PPD (TB) 2012-02-16 Completed [facility] 00:00:00 [facility] Pneumococcal 2012-02-16 Completed [facility] o f Polysaccharide, 00:00:00 [place] [facility] PPSV23 (PNEUMOVAX) Branch Influenza Virus 2012-02-16 Completed [facility] Vaccine 00:00:00 [facility] PPD (TB) 2012-02-16 Completed [facility] of 00:00:00 [facility] Pneumococcal 2012-02-16 Completed [facility] o f Polysaccharide, 00:00:00 [place] [facility] PPSV23 (PNEUMOVAX) Branch Influenza Virus 2012-02-16 Completed [facility] Vaccine 00:00:00 [facility] PPD (TB) 2012-02-16 Completed [facility] of 00:00:00 [facility] Pneumococcal 2012-02-16 Completed [facility] o f Polysaccharide, 00:00:00 [place] [facility] PPSV23 (PNEUMOVAX) Branch Influenza Virus 2012-02-16 Completed [facility] of Vaccine 00:00:00 [facility] PPD (TB) 2012-02-16 Completed [facility] of 00:00:00 [facility] Pneumococcal 2012-02-16 Completed [facility] o f Polysaccharide, 00:00:00 [place] [facility] PPSV23 (PNEUMOVAX) Branch Influenza Virus 2012-02-16 Completed [facility] Vaccine 00:00:00 [facility] PPD (TB) 2012-02-16 Completed [facility] of 00:00:00 [facility] Pneumococcal 2012-02-16 Completed [facility] o f Polysaccharide, 00:00:00 [place] [facility] PPSV23 (PNEUMOVAX) Branch Influenza Virus 2012-02-16 Completed Universit y of Vaccine 00:00:00 [facility] PPD (TB) 2012-02-16 Completed University of 00:00:00 [facility] Pneumococcal 2012-02-16 Completed University o f Polysaccharide, 00:00:00 [facility] [place] [facility] PPSV23 (PNEUMOVAX) Branch Influenza Virus 2012-02-16 Completed Universit y of Vaccine 00:00:00 [facility] PPD (TB) 2012-02-16 Completed University of 00:00:00 [facility] Pneumococcal 2012-02-16 Completed University o f Polysaccharide, [...] rsity of Dosage 00:00:00 [facility] Hep B, Adol or Pedi 2011-09-01 Completed Unive rsity of Dosage 00:00:00 [facility] Hep B, Adol or Pedi 2011-09-01 Completed Unive rsity of Dosage 00:00:00 [facility] Hep B, Adol or Pedi 2011-09-01 Completed Unive rsity of Dosage 00:00:00 [facility] Hep B, Adol or Pedi [...] Completed Unive rsity of Dosage 00:00:00 [facility] Hep B, Adol or Pedi 2011-03-17 Completed Unive rsity of Dosage 00:00:00 [facility] Hep B, Adol or Pedi 2011-03-17 Completed Unive rsity of Dosage 00:00:00 [facility] Hep B, Adol or Pedi 2011-03-17 Completed Unive rsity of Dosage 00:00:00 [facility] Hep B, Adol or Pedi 2011-03-17 Completed Unive rsity of Dosage 00:00:00 [facility] Hep B, Adol or Pedi 2011-03-17 Completed Unive rsity of Dosage 00:00:00 [facility] Hep B, Adol or Pedi 2011-03-17 Completed Unive rsity of Dosage 00:00:00 [facility] Hep B, Adol or Pedi 2011-03-17 Completed Unive rsity of Dosage 00:00:00 [facility] Influenza Virus 2011-02-10 Completed Universit y of Vaccine 00:00:00 [facility] Hep B, Adol or Pedi 2011-02-10 Completed Unive rsity of Dosage 00:00:00 [facility] Influenza Virus 2011-02-10 Completed Universit y of Vaccine 00:00:00 [facility] Hep B, Adol or Pedi 2011-02-10 Completed Unive rsity of Dosage 00:00:00 [facility] Influenza Virus 2011-02-10 Completed Universit y of Vaccine 00:00:00 [facility] Hep B, Adol or Pedi 2011-02-10 Completed Unive rsity of Dosage 00:00:00 [facility] Influenza Virus 2011-02-10 Completed Universit y of Vaccine 00:00:00 [facility] Hep B, Adol or Pedi 2011-02-10 Completed Unive rsity of Dosage 00:00:00 [facility] Influenza Virus 2011-02-10 Completed Universit y of Vaccine 00:00:00 [facility] Hep B, Adol or Pedi [...] y of Vaccine 00:00:00 [facility] Hep B, Adol or Pedi 2011-02-10 Completed Unive rsity of Dosage 00:00:00 [facility] Influenza Virus 2011-02-10 Completed Universit y of Vaccine 00:00:00 [facility] Hep B, Adol or Pedi 2011-02-10 Completed Unive rsity of Dosage 00:00:00 [facility] Influenza Virus 2011-02-10 Completed Universit y of Vaccine 00:00:00 [facility] Hep B, Adol or Pedi 2011-02-10 Completed Unive rsity of Dosage 00:00:00 [facility] Influenza Virus 2011-02-10 Completed Universit y of Vaccine 00:00:00 [facility] Hep B, Adol or Pedi 2011-02-10 Completed Unive rsity of Dosage 00:00:00 [facility] Influenza Virus 2011-02-10 Completed Universit y of Vaccine 00:00:00 [facility] Hep B, Adol or Pedi 2011-02-10 Completed Unive rsity of Dosage 00:00:00 [facility] Influenza Virus 2011-02-10 Completed Universit y of Vaccine 00:00:00 [facility] Hep B, Adol or Pedi [...] y of Vaccine 00:00:00 [facility] Hep B, Adol or Pedi 2011-02-10 Completed Unive rsity of Dosage 00:00:00 [facility] Influenza Virus 2011-02-10 Completed Universit y of Vaccine 00:00:00 [facility] Hep B, Adol or Pedi 2011-02-10 Completed Unive rsity of Dosage 00:00:00 [facility] Influenza Virus 2011-02-10 Completed Universit y of Vaccine 00:00:00 [facility] Hep B, Adol or Pedi 2011-02-10 Completed Unive rsity of Dosage 00:00:00 [facility] Influenza Virus 2011-02-10 Completed Universit y of Vaccine 00:00:00 [facility] Hep B, Adol or Pedi 2011-02-10 Completed Unive rsity of Dosage 00:00:00 [facility] Influenza Virus 2011-02-10 Completed Universit y of Vaccine 00:00:00 [facility] Hep B, Adol or Pedi 2011-02-10 Completed Unive rsity of Dosage 00:00:00 [facility] Influenza Virus 2011-02-10 Completed Universit y of Vaccine 00:00:00 [facility] Hep B, Adol or Pedi [...] VACCINE 00:00:00 [facility] PPD (TB) 2010-11-18 Completed University of 00:00:00 [facility] TDAP (ADACEL) 2010-11-18 Completed University of VACCINE 00:00:00 [facility] PPD (TB) 2010-11-18 Completed University of 00:00:00 [facility] TDAP (ADACEL) 2010-11-18 Completed University of VACCINE 00:00:00 [facility] PPD (TB) 2010-11-18 Completed University of 00:00:00 [facility] TDAP (ADACEL) 2010-11-18 Completed University of VACCINE 00:00:00 [facility] PPD (TB) 2010-11-18 Completed University of 00:00:00 [facility] TDAP (ADACEL) 2010-11-18 Completed University of VACCINE 00:00:00 [facility] PPD (TB) 2010-11-18 Completed University of 00:00:00 [facility] TDAP (ADACEL) 2010-11-18 Completed University of VACCINE 00:00:00 [facility] PPD (TB) 2010-11-18 Completed University of 00:00:00 [facility] TDAP (ADACEL) 2010-11-18 Completed University of VACCINE 00:00:00 [facility] PPD (TB) 2010-11-18 Completed University of 00:00:00 [facility] TDAP (ADACEL) 2010-11-18 Completed University of VACCINE 00:00:00 [facility] PPD (TB) 2010-11-18 Completed University of 00:00:00 [facility] TDAP (ADACEL) 2010-11-18 Completed University of VACCINE 00:00:00 [facility] PPD (TB) 2010-11-18 Completed University of 00:00:00 [facility] TDAP (ADACEL) 2010-11-18 Completed University of VACCINE 00:00:00 [facility] PPD (TB) 2010-11-18 Completed University of 00:00:00 [facility] TDAP (ADACEL) 2010-11-18 Completed University of VACCINE 00:00:00 [facility] PPD (TB) 2010-11-18 Completed University of 00:00:00 [facility] TDAP (ADACEL) 2010-11-18 Completed University of VACCINE 00:00:00 [facility] PPD (TB) 2010-11-18 Completed University of 00:00:00 [facility] TDAP (ADACEL) 2010-11-18 Completed University of VACCINE 00:00:00 [facility] PPD (TB) 2010-11-18 Completed University of 00:00:00 [facility] TDAP (ADACEL) 2010-11-18 Completed University of VACCINE 00:00:00 [facility] PPD (TB) 2010-11-18 Completed University of 00:00:00 [facility] TDAP (ADACEL) 2010-11-18 Completed University of VACCINE 00:00:00 [facility] PPD (TB) 2010-11-18 Completed University of 00:00:00 [facility] TDAP (ADACEL) 2010-11-18 Completed University of VACCINE 00:00:00 [facility] PPD (TB) 2010-11-18 Completed University of 00:00:00 [facility] TDAP (ADACEL) 2010-11-18 Completed University of VACCINE 00:00:00 [facility] PPD (TB) 2010-11-18 Completed University of 00:00:00 [facility] TDAP (ADACEL) 2010-11-18 Completed University of VACCINE 00:00:00 [facility] PPD (TB) 2010-11-18 Completed University of 00:00:00 [facility] TDAP (ADACEL) 2010-11-18 Completed University of VACCINE 00:00:00 [facility] PPD (TB) 2010-11-18 Completed University of 00:00:00 [facility] TDAP (ADACEL) 2010-11-18 Completed University of VACCINE 00:00:00 [facility] PPD (TB) 2010-11-18 Completed University of 00:00:00 [facility] TDAP (ADACEL) 2010-11-18 Completed University of VACCINE 00:00:00 [facility] PPD (TB) 2010-11-18 Completed University of 00:00:00 [facility] TDAP (ADACEL) 2010-11-18 Completed University of VACCINE 00:00:00 [facility] PPD (TB) 2010-11-18 Completed University of 00:00:00 [facility] TDAP (ADACEL) 2010-11-18 Completed University of VACCINE 00:00:00 [facility] PPD [...] Completed University of 00:00:00 [facility] HEPATITIS A 2004-03-02 Completed University of 00:00:00 [facility] HEPATITIS A 2004-03-02 Completed University of 00:00:00 [facility] HEPATITIS A 2004-03-02 Completed University of 00:00:00 [facility] HEPATITIS A 2004-03-02 Completed University of 00:00:00 [facility] HEPATITIS A 2004-03-02 Completed University of 00:00:00 [facility] HEPATITIS A 2004-03-02 Completed University of 00:00:00 [facility] HEPATITIS A 2004-03-02 Completed University of 00:00:00 [facility] HEPATITIS A 2004-03-02 Completed University of 00:00:00 [facility] HEPATITIS A 2004-03-02 Completed University of 00:00:00 [facility] HEPATITIS A 2004-03-02 Completed University of 00:00:00 [facility] HEPATITIS A 2004-03-02 Completed University of 00:00:00 [facility] HEPATITIS A 2004-03-02 Completed University of 00:00:00 [facility] HEPATITIS A 2004-03-02 Completed University of 00:00:00 [facility] HEPATITIS A 2004-03-02 Completed University of 00:00:00 [facility] HEPATITIS A 2004-03-02 Completed University of 00:00:00 [facility] HEPATITIS A 2004-03-02 Completed [facility] [...] [facility] Pneum[facility] 2001-10-04 Completed [place] o f Polysaccharide, 00:00:00 [facility] ical PPSV23 (PNEUMOVAX) Branch PPD (TB) 2001-10-04 Completed University of 00:00:00 [facility] Pneumococcal 2001-10-04 Completed [place] o f Polysaccharide, 00:00:00 [facility] ical PPSV23 (PNEUMOVAX) Branch PPD (TB) 2001-10-04 Completed University of 00:00:00 [facility] Pneumococcal 2001-10-04 Completed University o f Polysaccharide, 00:00:00 [facility] ical PPSV23 (PNEUMOVAX) Branch PPD (TB) 2001-10-04 Completed University of 00:00:00 [facility] PFIZER COVID-19 Unknown Completed [facility] PFIZER COVID-19 Unknown Completed [facility] PFIZER COVID-19 Unknown Completed [facility] PFIZER COVID[facility]19 Unknown Completed [facility] PFIZER COVID-19 Unknown Completed [facility] PFIZER COVID[facility]19 Unknown Completed [facility] PFIZER COVID-19 Unknown Completed [facility] PFIZER COVID-19 Unknown Completed [facility] PFIZER COVID-19 Unknown Completed [facility] PFIZER COVID[facility]19 Unknown Completed [facility] PFIZER COVID-19 Unknown Completed [facility] PFIZER COVID-19 Unknown Completed [facility] Vital Signs Vital Name Observation Time Observation Value Comments Source Systolic blood 2023-01-27 23:00:00 179 mm[Hg] Univer sity of pressure [facility] Diastolic blood 2023-01-27 23:00:00 101 mm[Hg] Unive rsity of pressure [facility] Heart rate 2023-01-27 23:00:00 58 /min [facility] Respiratory rate 2023-01-27 23:00:00 12 /min [facility] Oxygen saturation in 2023-01-27 23:00:00 99 /min [facility] Arterial blood by [facility] Pulse oximetry [place] Body temperature 2023-01-27 15:46:00 37.28 Amina [facility] Body weight 2023-01-27 15:46:00 79.379 kg [facility] BMI 2023-01-27 15:46:00 30.04 kg/m2 Universi ty [...] University of Arterial blood by [facility] porfirio Pulse oximetry Branch Body weight [...] 100 /min University of Arterial blood by [facility] Pulse oximetry Branch Body temperature 2022-05-08 22:22:00 [...] 99 /min University of Arterial blood by [facility] Pulse oximetry Branch Body temperature 2022-05-06 20:12:00 36.5 Amina Univ ersity of [facility] Body height 2022-05-06 20:12:00 162.6 cm [facility] Body weight 2022-05-06 20:12:00 78.926 kg [facility] BMI 2022-05-06 20:12:00 29.87 kg/m2 [facility] Systolic blood 2022-04-22 19:50:00 156 mm[Hg] Univer sity of pressure [facility] Diastolic blood 2022-04-22 19:50:00 89 mm[Hg] Unive rsity of pressure [facility] Heart rate 2022-04-22 19:50:00 69 /min [facility] Body temperature 2022-04-22 19:50:00 36.67 Amina Univ ers[facility] Respiratory rate 2022-04-22 19:50:00 17 /min Univ ersity of [facility] Body height 2022-04-22 19:50:00 162.6 cm [facility] Body weight 2022-04-22 19:50:00 80.74 kg [facility] BMI 2022-04-22 19:50:00 30.55 kg/m2 [facility] Oxygen saturation in 2022-04-22 19:50:00 96 /min University of Arterial blood by [facility] Pulse oximetry Branch Systolic blood 2022-03-05 15:23:00 [...] 15:18:00 162.6 cm [facility] Body weight 2022-03-05 15:18:00 74.707 kg [facility] BMI 2022-03-05 15:18:00 28.27 [...] 2022-02-16 21:41:00 17 /min Univ ersity of [facility] Oxygen saturation in 2022-02-16 21:41:00 98 /min University of Arterial blood by [facility] Pulse oximetry Branch Body height 2022-02-11 16:02:00 162.6 cm [facility] Body weight 2022-02-11 16:02:00 79.379 kg [facility] BMI 2022-02-11 16:02:00 30.04 kg/m2 [facility] Systolic blood 2021-11-20 13:47:00 165 mm[Hg] Univer sity of pressure [facility] Diastolic blood 2021-11-20 13:47:00 83 mm[Hg] Unive rsity of pressure [facility] Heart rate 2021-11-20 13:47:00 58 /min [facility] Body temperature 2021-11-20 13:42:00 36.39 Amina Univ [facility] Respiratory rate 2021-11-20 13:42:00 16 /min Univ ersity of [facility] Body height 2021-11-20 13:42:00 162.6 cm [facility] Body weight 2021-11-20 13:42:00 84.369 kg [facility] BMI 2021-11-20 13:42:00 31.93 [...] h BMI 2021-07-14 15:18:00 35.87 kg/m2 [facility] Systolic blood 2022-05-10 22:00:00 159 mm[Hg] Univer sity of pressure [facility] Diastolic blood 2022-05-10 22:00:00 87 mm[Hg] Unive rsity of pressure [facility] Heart rate 2022-05-10 22:00:00 56 /min Universi ty of [facility] Body temperature 2022-05-10 22:00:00 36.61 Amina Univ ersity of [facility] Respiratory rate 2022-05-10 22:00:00 17 /min Univ ersity of [facility] Oxygen saturation in 2022-05-10 22:00:00 98 /min University of Arterial blood by [facility] Pulse oximetry Branch Body weight 2022-05-10 16:29:00 78.926 kg Universi ty of [facility] BMI 2022-05-10 16:29:00 29.87 kg/m2 Universi ty of [facility] Body height 2022-05-06 20:12:00 162.6 cm Universi ty of [facility] Systolic blood 2022-03-05 15:23:00 167 mm[Hg] Univer sity of pressure [facility] Diastolic blood 2022-03-05 15:23:00 105 mm[Hg] Unive rsity of pressure [facility] Heart rate 2022-03-05 15:23:00 49 /min Universi ty of [facility] Body temperature 2022-03-05 15:18:00 36.67 Amina Univ ersity of [facility] Respiratory rate 2022-03-05 15:18:00 18 /min Univ ersity of [facility] Body height 2022-03-05 15:18:00 162.6 cm [facility] Body weight 2022-03-05 15:18:00 74.707 kg [facility] BMI 2022-03-05 15:18:00 28.27 kg/m2 [facility] Oxygen saturation in 2022-02-16 21:41:00 98 /min University Arterial blood by [facility] Pulse oximetry Branch Systolic blood 2020-12-08 15:48:00 125 mm[Hg] [facility] pressure Diastolic blood 2020-12-08 15:48:00 76 mm[Hg] [facility] pressure Heart rate 2020-12-08 15:48:00 64 /min [facility] Body temperature 2020-12-08 15:48:00 36.61 Amina [facility] Respiratory rate 2020-12-08 15:48:00 17 /min [facility] Body height 2020-12-08 15:48:[address] [facility] Body weight 2020-12-08 15:48:[address] [facility] BMI 2020-12-08 15:48:00 37.42 kg/m2 [facility] Oxygen saturation in 2020-12-08 15:48:00 97 /min [facility] Arterial blood by Pulse oximetry [place] Rate 2020-08-30 13:00:00 Memori al [place] Systolic (mm Hg) 2020-08-30 13:00:00 Caesar rial [place] Diastolic (mm Hg) 2020-08-30 13:00:00 Mem orial [place] Systolic (mm Hg) 2020-08-30 11:00:00 Caesar rial [place] Diastolic (mm Hg) 2020-08-30 11:00:00 Mem orial [place] Temperature Oral (F) 2020-08-30 11:00:00 98.4 F [facility] Respitory Rate 2020-08-30 11:00:00 Memori al [place] Respitory Rate 2020-08-30 10:00:00 Memori al [place] Systolic (mm Hg) 2020-08-30 10:00:00 Caesar rial [place] Diastolic (mm Hg) 2020-08-30 10:00:00 Mem orial [place] Temperature Oral (F) 2020-08-30 00:00:00 96.9 F Claude Ferguson Temperature Oral (F) 2020-08-29 11:26:00 97.6 F [facility] Height 2020-08-29 10:30:00 [facility] 2020-08-29 10:30:00 [facility] BMI Calculated 2020-08-29 10:30:00 [place] Procedures Procedure Date / Time Performing Clinician Source Performed PROTHROMBIN TIME / INR 2023-01-27 21:09:00 [facility] ACTIVATED PARTIAL THRMPLAS 2023-01-27 21:09:00 [facility] 2023-01-27 20:54:00 Bill Coles [facility] CONTRAST [facility] LIPASE 2023-01-27 18:58:00 Bill Coles [facility] MAGNESIUM 2023-01-27 18:58:00 Bill Coles [facility] TROPONIN I 2023-01-27 18:58:00 Bill Coles [facility] COMP. METABOLIC PANEL 2023-01-27 18:58:00 Bill Coles [facility] ([id number]) [facility] CBC WITH DIFF 2023-01-27 18:58:00 Bill Coles [facility] URINALYSIS 2023-01-27 18:58:00 Bill Coles [facility] COVID-19 (ID NOW RAPID 2023-01-27 16:32:00 Bill Coles [facility] TESTING) [facility] URINALYSIS 2022-05-10 19:36:[address] [facility] TROPONIN I 2022-05-10 18:34:[address] [facility] COMP. METABOLIC PANEL 2022-05-10 18:34:00 [facility] ([id number] Medical Branch CBC WITH DIFF 2022-05-10 18:34:[address] [facility] XR CHEST 2 VW 2022-05-10 17:24:[address] [facility] CONSENT/REFUSAL FOR 2022-05-10 16:26:23 Doctor Unassigned, [facility] DIAGNOSIS AND TREATMENT [place] [facility] CONSENT/REFUSAL FOR 2022-05-10 16:26:09 Doctor Unasseunice, [facility] DIAGNOSIS AND TREATMENT [place] [facility] URINALYSIS 2022-05-08 22:43:00 Theresa Hickman [facility] XR CHEST 2 VW 2022-05-06 22:56:[address] [facility] COMP. METABOLIC PANEL 2022-05-06 22:14:00 Anette Olea [facility] ([id number]) Medical [place] CBC WITH DIFF 2022-05-06 22:14:[address] [facility] COVID-19 (ID NOW RAPID 2022-05-06 22:14:00 Anette Olea [facility] TESTING) Medical Branch BASIC METABOLIC PANEL (NA, 2022-04-22 21:23:00 Paulette Gray [facility] K, CL, CO2, GLUCOSE, BUN, Medica l [place] CREATININE, [place]) CBC WITH DIFF 2022-04-22 21:23:00 Paulette Gray [facility] CONSENT/REFUSAL FOR 2022-04-22 19:45:46 Doctor Unasimone, [facility] DIAGNOSIS AND TREATMENT [place] [facility] SARS-COV-2 COVID-19 2022-03-05 16:09:27 [facility] DIMITRIS-SUCROSE VACCINE [address] [place] [address] YRS+, BIVALENT 0.3ML, IM, (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) FLU 2022-03-05 16:09:27 [facility] VACC(),65+YR,0.5 Medica l Branch ML,IM,ADJUVANTED,QUAD(FLUA D) FLU 2022-03-05 16:09:27 [facility] VACC(),65+YR,0.5 Medica l Branch ML,IM,ADJUVANTED,QUAD(FLUA D) SARS-COV-2 COVID-19 2022-03-05 16:09:27 Santiago Cardenas [facility] DIMITRIS-SUCROSE VACCINE 12 Medical Branch YRS+, BIVALENT 0.3ML, IM, (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) MAGNESIUM 2022-02-15 09:41:[address] [facility] BASIC METABOLIC PANEL (NA, 2022-02-15 09:41:00 Sofia Garcia [facility] K, CL, CO2, GLUCOSE, BUN, Medica l Branch CREATININE, [place]) CBC WITH DIFF 2022-02-15 09:41:00 Radha [facility] N-TERMINAL PRO-BNP 2022-02-15 09:41:00 Sofia Garcia [facility] CBC WITH DIFF 2022-02-15 09:41:00 Radha [facility] BASIC METABOLIC PANEL (NA, 2022-02-15 09:41:00 Sofia Garcia [facility] K, CL, CO2, GLUCOSE, BUN, Medica l Branch CREATININE, CA) MAGNESIUM 2022-02-15 09:41:00 Radha [facility] N-TERMINAL PRO-BNP 2022-02-15 09:41:00 Sofia Garcia [facility] BASIC METABOLIC PANEL (NA, 2022-02-13 09:40:00 Sofia Garcia [facility] K, CL, CO2, GLUCOSE, BUN, Medica l Branch CREATININE, CA) CBC WITH DIFF 2022-02-13 09:40:[address] [facility] BASIC METABOLIC PANEL (NA, 2022-02-13 09:40:00 Radha Sofia [facility] K, CL, CO2, GLUCOSE, BUN, Medica l Branch CREATININE, [place]) CBC WITH DIFF 2022-02-13 09:40:[address] [facility] TROPONIN I 2022-02-11 23:41:00 Radha [facility] N-TERMINAL PRO-BNP 2022-02-11 23:41:00 Radha Sofia [facility] TROPONIN I 2022-02-11 23:41:00 Radha [facility] N-TERMINAL PRO-BNP 2022-02-11 23:41:00 Sofia Garcia [facility] HB ECG ROUTINE & RHYTHM 2022-02-11 22:15:36 [facility] 2022-02-11 21:26:50 [facility] 2022-02-11 21:26:50 [facility] 2022-02-11 07:45:43 Reilly Means [facility] CONTRAST [facility] CT ABDOMEN PELVIS W 2022-02-11 07:45:43 Reilly Means [facility] CONTRAST [facility] RAPID INFLUENZA A/B 2022-02-11 06:54:00 Reilly Means [facility] RAPID INFLUENZA A/B 2022-02-11 06:54:00 Reilly Means [facility] URINALYSIS 2022-02-11 06:45:00 Reilly Means [facility] URINE CULTURE 2022-02-11 06:45:00 Reilly Means [facility] URINALYSIS 2022-02-11 06:45:00 Miguelangel Reilly [facility] URINE CULTURE 2022-02-11 06:45:00 Reilly Means [facility] HB ECG ROUTINE & RHYTHM 2022-02-11 05:22:08 Reilly Means [facility] HB ECG ROUTINE & RHYTHM 2022-02-11 05:22:08 Reilly Means [facility] BLOOD CULTURE SCREEN 2022-02-11 04:58:00 Reilly Means [facility] TROPONIN I 2022-02-11 04:58:00 Reilly Means [facility] COMP. METABOLIC PANEL 2022-02-11 04:58:00 Reilly Means [facility] ([id number]) [facility] CBC WITH DIFF 2022-02-11 04:58:00 Reilly Means [facility] PROTHROMBIN TIME / INR 2022-02-11 04:58:00 Reilly Means [facility] ACTIVATED PARTIAL THRMPLAS 2022-02-11 04:58:00 Reilly Means [facility] N-TERMINAL PRO-BNP 2022-02-11 04:58:00 Reilly Means [facility] LACTIC ACID WHOLE BLOOD 2022-02-11 04:58:00 Reilly Means [facility] COVID-19 (ID NOW RAPID 2022-02-11 04:58:00 Reilly Means [facility] TESTING) Medical Branch LAB ONLY COVID 2022-02-11 04:58:00 Rielly Means [facility] CBC WITH DIFF 2022-02-11 04:58:00 Reilly Means [facility] ACTIVATED PARTIAL THRMPLAS 2022-02-11 04:58:00 Reilly Means [facility] PROTHROMBIN TIME / INR 2022-02-11 04:58:00 Reilly Means [facility] COVID-19 (ID NOW RAPID 2022-02-11 04:58:00 Reilly Means [facility] TESTING) Medical Branch COMP. METABOLIC PANEL 2022-02-11 04:58:00 Reilly Means [facility] ([id number]) [facility] TROPONIN I 2022-02-11 04:58:00 Reilly Means [facility] N-TERMINAL PRO-BNP 2022-02-11 04:58:00 Reilly Means [facility] BLOOD CULTURE SCREEN 2022-02-11 04:58:00 Reilly Means [facility] LACTIC ACID WHOLE BLOOD 2022-02-11 04:58:00 Reilly Means [facility] LAB ONLY COVID 2022-02-11 04:58:00 Reilly Means [facility] XR CHEST 1 VW 2022-02-11 04:27:42 Reilly Means [facility] XR CHEST 1 VW 2022-02-11 04:27:42 Reilly Means [facility] HOSPITAL ADMISSION 2022-02-10 05:01:00 Doctor Unassigned, [facility] [place] HOSPITAL ADMISSION 2022-02-10 05:01:00 Doctor Unassigned, [facility] [place] ECG 12-LEAD 2021-07-14 15:14:00 AnaHolly centenomukul [facility] [id number] 2021-06-17 00:00:00 RIKY Freedman [facility] GASTROINTESTINAL PANEL 2020-12-08 22:21:00 [facility] XR ABDOMEN 1 VW 2020-12-08 18:06:32 Eliseo Arce [facility] [place] < 1 HOUR 2020-09-05 22:39:00 [facility]iseo [facility] SURGICAL PATHOLOGY REQUEST 2020-09-05 21:54:00 [facility] XR CHEST 1 VW PORTABLE 2020-09-05 19:55:00 [facility] DISCHARGE PATIENT 2020-09-05 17:27:55 Lucas Harris [facility] NM AN ELECTIVE 2020-09-05 16:47:23 Kirit Flood V[facility] ENDOTRACHEAL AIRWAY EGD, INTRAOPERATIVE 2020-09-05 16:27:00 [facility] 2020-09-05 15:04[facility]00 [facility] TIME (PTT[facility] M. PROTHROMBIN TIME WITH INR 2020-09-05 15:04:00 [facility] M. Plan of Care Planned Activity Planned Date Details Comments Source Future Scheduled 2023-02-15 Screening for [facility] Test 13:19:29 malignant neoplasm of colon (procedure) [code = 044384540] Future Scheduled 2023-02-15 Screening for [facility] Test 13:19:29 malignant neoplasm of colon (procedure) [code = 190525194] Future Scheduled 2023-02-15 Screening for [facility] Test 13:19:29 malignant neoplasm of colon (procedure) [code = 599578344] Future Scheduled 2023-02-15 SHINGLES VACCINES (1 Met [facility] Test 13:19:29 of 2) [code = SHINGLES VACCINES (1 of 2)] Future Scheduled 2023-02-15 BREAST CANCER [facility] Test 13:19:29 SCREENING [code = BREAST CANCER SCREENING] Future Scheduled 2023-02-15 [facility] Test 13:19:29 malignant neoplasm of colon (procedure) [code = 764698393] Future Scheduled 2023-02-15 [facility] Test 13:19:29 malignant neoplasm of colon (procedure) [code = 901775965] Future Scheduled 2023-02-15 HEPATITIS B VACCINES Met [facility] Test 13:19:29 (1 of 3 - Risk 3-dose series) [code = HEPATITIS B VACCINES (1 of 3 - Risk 3-dose series)] Future Scheduled 2023-02-15 COVID-19 VACCINE (3 - Me [facility] Test 13:19:29 Pfizer series) [code = COVID-19 VACCINE (3 - Pfizer series)] Future Scheduled 2023-02-15 65+ PNEUMOCOCCAL [facility] Test 13:19:29 VACCINE (4 - PPSV23 or PCV20) [code = 65+ PNEUMOCOCCAL VACCINE (4 - PPSV23 or PCV20)] Future Scheduled 2023-02-15 INFLUENZA VACCINE (#1) [facility] Test 13:19:29 [code = INFLUENZA VACCINE (#1)] Future Scheduled 2023-02-15 Screening for [facility] Test 13:19:29 malignant neoplasm of colon (procedure) [code = 617176398] Future Scheduled 2023-02-15 Screening for [facility] Test 13:19:29 malignant neoplasm of colon (procedure) [code = 519872579] Future Scheduled 2023-02-15 Screening for [facility] Test 13:19:29 malignant neoplasm of colon (procedure) [code = 945980236] Future Scheduled 2023-02-15 SHINGLES VACCINES (1 Met [facility] Test 13:19:29 of 2) [code = SHINGLES VACCINES (1 of 2)] Future Scheduled 2023-02-15 BREAST CANCER [facility] Test 13:19:29 SCREENING [code = BREAST CANCER SCREENING] Future Scheduled 2023-02-15 Screening for [facility] Test 13:19:29 malignant neoplasm of colon (procedure) [code = 650632865] Future Scheduled 2023-02-15 Screening for [facility] Test 13:19:29 malignant neoplasm of colon (procedure) [code = 632748783] Future Scheduled 2023-02-15 HEPATITIS B VACCINES Met [facility] Test 13:19:29 (1 of 3 - Risk 3-dose series) [code = HEPATITIS B VACCINES (1 of 3 - Risk 3-dose series)] Future Scheduled 2023-02-15 COVID-19 VACCINE (3 - Me [facility] Test 13:19:29 Pfizer series) [code = COVID-19 VACCINE (3 - Pfizer series)] Future Scheduled 2023-02-15 65+ PNEUMOCOCCAL [facility] Test 13:19:29 VACCINE (4 - PPSV23 or PCV20) [code = 65+ PNEUMOCOCCAL VACCINE (4 - PPSV23 or PCV20)] Future Scheduled 2023-02-15 INFLUENZA VACCINE (#1) M [facility] Test 13:19:29 [code = INFLUENZA VACCINE (#1)] Future Scheduled 2023-02-15 Screening for [facility] Test 13:19:29 malignant neoplasm of colon (procedure) [code = 499169543] Future Scheduled 2023-02-15 Screening for [facility] Test 13:19:29 malignant neoplasm of colon (procedure) [code = 809531798] Future Scheduled 2023-02-15 Screening for [facility] Test 13:19:29 malignant neoplasm of colon (procedure) [code = 524455619] Future Scheduled 2023-02-15 SHINGLES VACCINES (1 Met [facility] Test 13:19:29 of 2) [code = SHINGLES VACCINES (1 of 2)] Future Scheduled 2023-02-15 BREAST CANCER [facility] Test 13:19:29 SCREENING [code = BREAST CANCER SCREENING] Future Scheduled 2023-02-15 Screening for [facility] Test 13:19:29 malignant neoplasm of colon (procedure) [code = 534909083] Future Scheduled 2023-02-15 Screening for [facility] Test 13:19:29 malignant neoplasm of colon (procedure) [code = 408449085] Future Scheduled 2023-02-15 HEPATITIS B VACCINES Met [facility] Test 13:19:29 (1 of 3 - Risk 3-dose series) [code = HEPATITIS B VACCINES (1 of 3 - Risk 3-dose series)] Future Scheduled 2023-02-15 COVID-19 VACCINE (3 - [facility] Test 13:19:29 Pfizer series) [code = COVID-19 VACCINE (3 - Pfizer series)] Future Scheduled 2023-02-15 65+ PNEUMOCOCCAL [facility] Test 13:19:29 VACCINE (4 - PPSV23 or PCV20) [code = 65+ PNEUMOCOCCAL VACCINE (4 - PPSV23 or PCV20)] Future Scheduled 2023-02-15 INFLUENZA VACCINE (#1) [facility] Test 13:19:29 [code = INFLUENZA VACCINE (#1)] Future Scheduled 2023-02-15 Screening for [facility] Test 13:19:29 malignant neoplasm of colon (procedure) [code = 493156862] Future Scheduled 2023-02-15 Screening for [facility] Test 13:19:29 malignant neoplasm of colon (procedure) [code = 728332867] Future Scheduled 2023-02-15 Screening for [facility] Test 13:19:29 malignant neoplasm of colon (procedure) [code = 883180035] Future Scheduled 2023-02-15 SHINGLES VACCINES (1 Met [facility] Test 13:19:29 of 2) [code = SHINGLES VACCINES (1 of 2)] Future Scheduled 2023-02-15 BREAST CANCER [facility] Test 13:19:29 SCREENING [code = BREAST CANCER SCREENING] Future Scheduled 2023-02-15 Screening for [facility] Test 13:19:29 malignant neoplasm of colon (procedure) [code = 418999301] Future Scheduled 2023-02-15 Screening for [facility] Test 13:19:29 malignant neoplasm of colon (procedure) [code = 363119912] Future Scheduled 2023-02-15 HEPATITIS B VACCINES Met [facility] Test 13:19:29 (1 of 3 - Risk 3-dose series) [code = HEPATITIS B VACCINES (1 of 3 - Risk 3-dose series)] Future Scheduled 2023-02-15 COVID-19 VACCINE (3 - Me [facility] Test 13:19:29 Pfizer series) [code = COVID-19 VACCINE (3 - Pfizer series)] Future Scheduled 2023-02-15 65+ PNEUMOCOCCAL [facility] Test 13:19:29 VACCINE (4 - PPSV23 or PCV20) [code = 65+ PNEUMOCOCCAL VACCINE (4 - PPSV23 or PCV20)] Future Scheduled 2023-02-15 INFLUENZA VACCINE (#1) [facility] Test 13:19:29 [code = INFLUENZA VACCINE (#1)] Future Scheduled 2023-02-10 Screening for [facility] Test 19:08:20 malignant neoplasm of colon (procedure) [code = 948490405] Future Scheduled 2023-02-10 Scre[facility] Test 19:08:20 malignant neoplasm of colon (procedure) [code = 993019899] Future Scheduled 2023-02-10 [facility] Test 19:08:20 malignant neoplasm of colon (procedure) [code = 447036660] Future Scheduled 2023-02-10 SHINGLES VACCINES (1 Met [facility] Test 19:08:20 of 2) [code = SHINGLES VACCINES (1 of 2)] Future Scheduled 2023-02-10 BREAST CANCER [facility] Test 19:08:20 SCREENING [code = BREAST CANCER SCREENING] Future Scheduled 2023-02-10 Screening for [facility] Test 19:08:20 malignant neoplasm of colon (procedure) [code = 411468291] Future Scheduled 2023-02-10 Screening for [facility] Test 19:08:20 malignant neoplasm of colon (procedure) [code = 667046731] Future Scheduled 2023-02-10 HEPATITIS B VACCINES Met [facility] Test 19:08:20 (1 of 3 - Risk 3-dose series) [code = HEPATITIS B VACCINES (1 of 3 - Risk 3-dose series)] Future Scheduled 2023-02-10 COVID-19 VACCINE (3 - Me [facility] Test 19:08:20 Pfizer series) [code = COVID-19 VACCINE (3 - Pfizer series)] Future Scheduled 2023-02-10 65+ PNEUMOCOCCAL [facility] Test 19:08:20 VACCINE (4 - PPSV23 or PCV20) [code = 65+ PNEUMOCOCCAL VACCINE (4 - PPSV23 or PCV20)] Future Scheduled 2023-02-10 INFLUENZA VACCINE (#1) [facility] Test 19:08:20 [code = INFLUENZA VACCINE (#1)] Future Scheduled 2023-02-10 Screening for [facility] Test 19:08:20 malignant neoplasm of colon (procedure) [code = 295361465] Future Scheduled 2023-02-10 Screening for [facility] Test 19:08:20 malignant neoplasm of colon (procedure) [code = 223728988] Future Scheduled 2023-02-10 Screening for [facility] Test 19:08:20 malignant neoplasm of colon (procedure) [code = 576644966] Future Scheduled 2023-02-10 SHINGLES VACCINES (1 Met [facility] Test 19:08:20 of 2) [code = SHINGLES VACCINES (1 of 2)] Future Scheduled 2023-02-10 BREAST CANCER [facility] Test 19:08:20 SCREENING [code = BREAST CANCER SCREENING] Future Scheduled 2023-02-10 Screening for [facility] Test 19:08:20 malignant neoplasm of colon (procedure) [code = 256253665] Future Scheduled 2023-02-10 Screening for [facility] Test 19:08:20 malignant neoplasm of colon (procedure) [code = 934367105] Future Scheduled 2023-02-10 HEPATITIS B VACCINES Met [facility] Test 19:08:20 (1 of 3 - Risk 3-dose series) [code = HEPATITIS B VACCINES (1 of 3 - Risk 3-dose series)] Future Scheduled 2023-02-10 COVID-19 VACCINE (3 - Me [facility] Test 19:08:20 Pfizer series) [code = COVID-19 VACCINE (3 - Pfizer series)] Future Scheduled 2023-02-10 65+ PNEUMOCOCCAL [facility] Test 19:08:20 VACCINE (4 - PPSV23 or PCV20) [code = 65+ PNEUMOCOCCAL VACCINE (4 - PPSV23 or PCV20)] Future Scheduled 2023-02-10 INFLUENZA VACCINE (#1) [facility] Test 19:08:20 [code = INFLUENZA VACCINE (#1)] Future Scheduled 2023-02-07 Screening for [facility] Test 14:07:46 malignant neoplasm of colon (procedure) [code = 842222160] Future Scheduled 2023-02-07 Screening for [facility] Test 14:07:46 malignant neoplasm of colon (procedure) [code = 109726442] Future Scheduled 2023-02-07 Screening for [facility] Test 14:07:46 malignant neoplasm of colon (procedure) [code = 550583536] Future Scheduled 2023-02-07 SHINGLES VACCINES (1 Met [facility] Test 14:07:46 of 2) [code = SHINGLES VACCINES (1 of 2)] Future Scheduled 2023-02-07 BREAST CANCER [facility] Test 14:07:46 SCREENING [code = BREAST CANCER SCREENING] Future Scheduled 2023-02-07 [facility] Test 14:07:46 malignant neoplasm of colon (procedure) [code = 238044107] Future Scheduled 2023-02-07 [facility] Test 14:07:46 malignant neoplasm of colon (procedure) [code = 048682657] Future Scheduled 2023-02-07 HEPATITIS B VACCINES Met [facility] Test 14:07:46 (1 of 3 - Risk 3-dose series) [code = HEPATITIS B VACCINES (1 of 3 - Risk 3-dose series)] Future Scheduled 2023-02-07 COVID-19 VACCINE (3 - Me [facility] Test 14:07:46 Pfizer series) [code = COVID-19 VACCINE (3 - Pfizer series)] Future Scheduled 2023-02-07 65+ PNEUMOCOCCAL [facility] Test 14:07:46 VACCINE (4 - PPSV23 or PCV20) [code = 65+ PNEUMOCOCCAL VACCINE (4 - PPSV23 or PCV20)] Future Scheduled 2023-02-07 INFLUENZA VACCINE (#1) M [facility] Test 14:07:46 [code = INFLUENZA VACCINE (#1)] [facility] malignant neoplasm of colon (procedure) [code = 407171519] Future Scheduled 2023 Screening for [facility] Test 08:21:28 malignant neoplasm of colon (procedure) [code = 545340670] Future Scheduled 2023 [facility] Test 08:21:28 malignant neoplasm of colon (procedure) [code = 039358706] Future Scheduled 2023 SHINGLES VACCINES (1 Met [facility] Test 08:21:28 of 2) [code = SHINGLES VACCINES (1 of 2)] Future Scheduled 2023 BREAST CANCER [facility] Test 08:21:28 SCREENING [code = BREAST CANCER SCREENING] Future Scheduled 2023 [facility] Test 08:21:28 malignant neoplasm of colon (procedure) [code = 165811455] Future Scheduled 2023 [facility] Test 08:21:28 malignant neoplasm of colon (procedure) [code = 080315231] Future Scheduled 2023 HEPATITIS B VACCINES Met [facility] Test 08:21:28 (1 of 3 - Risk 3-dose series) [code = HEPATITIS B VACCINES (1 of 3 - Risk 3-dose series)] Future Scheduled 2023 COVID-19 VACCINE (3 - [facility] Test 08:21:28 Pfizer series) [code = COVID-19 VACCINE (3 - Pfizer series)] Future Scheduled 2023 65+ PNEUMOCOCCAL [facility] Test 08:21:28 VACCINE (4 - PPSV23 if available, else PCV20) [code = 65+ PNEUMOCOCCAL VACCINE (4 - PPSV23 if available, else PCV20)] Future Scheduled 2023 INFLUENZA VACCINE (#1) M [facility] Test 08:21:28 [code = INFLUENZA VACCINE (#1)] Future Scheduled 2023 Screening for [facility] Test 08:21:28 malignant neoplasm of colon (procedure) [code = 360638158] Future Scheduled 2023 Screening for [facility] Test 08:21:28 malignant neoplasm of colon (procedure) [code = 799284837] Future Scheduled 2023 Screening for [facility] Test 08:21:28 malignant neoplasm of colon (procedure) [code = 669393748] Future Scheduled 2023 SHINGLES VACCINES (1 Met [facility] Test 08:21:28 of 2) [code = SHINGLES VACCINES (1 of 2)] Future Scheduled 2023 BREAST CANCER [facility] Test 08:21:28 SCREENING [code = BREAST CANCER SCREENING] Future Scheduled 2023 Screening for [facility] Test 08:21:28 malignant neoplasm of colon (procedure) [code = 141606355] Future Scheduled 2023 Screening for [facility] Test 08:21:28 malignant neoplasm of colon (procedure) [code = 180522798] Future Scheduled 2023 HEPATITIS B VACCINES Met [facility] Test 08:21:28 (1 of 3 - Risk 3-dose series) [code = HEPATITIS B VACCINES (1 of 3 - Risk 3-dose series)] Future Scheduled 2023 COVID-19 VACCINE (3 - [facility] Test 08:21:28 Pfizer series) [code = COVID-19 VACCINE (3 - Pfizer series)] Future Scheduled 2023 65+ PNEUMOCOCCAL [facility] Test 08:21:28 VACCINE (4 - PPSV23 if available, else PCV20) [code = 65+ PNEUMOCOCCAL VACCINE (4 - PPSV23 if available, else PCV20)] Future Scheduled 2023 INFLUENZA VACCINE (#1) [facility] Test 08:21:28 [code = INFLUENZA VACCINE (#1)] Future Scheduled 2023-01-17 Screening for [facility] Test 02:09:59 malignant neoplasm of colon (procedure) [code = 541242055] Future Scheduled 2023-01-17 Screening for [facility] Test 02:09:59 malignant neoplasm of colon (procedure) [code = 613186681] Future Scheduled 2023-01-17 Screening for [facility] Test 02:09:59 malignant neoplasm of colon (procedure) [code = 033847456] Future Scheduled 2023-01-17 SHINGLES VACCINES (1 Met [facility] Test 02:09:59 of 2) [code = SHINGLES VACCINES (1 of 2)] Future Scheduled 2023-01-17 BREAST CANCER [facility] Test 02:09:59 SCREENING [code = BREAST CANCER SCREENING] Future Scheduled 2023-01-17 Screening for [facility] Test 02:09:59 malignant neoplasm of colon (procedure) [code = 026726149] Future Scheduled 2023-01-17 Screening for [facility] Test 02:09:59 malignant neoplasm of colon (procedure) [code = 335803275] Future Scheduled 2023-01-17 HEPATITIS B VACCINES Met [facility] Test 02:09:59 (1 of 3 - Risk 3-dose series) [code = HEPATITIS B VACCINES (1 of 3 - Risk 3-dose series)] Future Scheduled 2023-01-17 COVID-19 VACCINE (3 - Me [facility] Test 02:09:59 Pfizer series) [code = COVID-19 VACCINE (3 - Pfizer series)] Future Scheduled 2023-01-17 65+ PNEUMOCOCCAL [facility] Test 02:09:59 VACCINE (4 - PPSV23 if available, else PCV20) [code = 65+ PNEUMOCOCCAL VACCINE (4 - PPSV23 if available, else PCV20)] Future Scheduled 2023-01-17 [facility]ZA [facility]ACCINE (#[facility]) [facility] 02:09:59 [code = INFLUENZA VACCINE (#1)] Future Scheduled 2022-12-23 [facility] 06:27:39 malignant neoplasm of colon (procedure) [code = 789956429] Future Scheduled 2022-12-23 [facility] Test 06:27:39 malignant neoplasm of colon (procedure) [code = 884396748] Future Scheduled 2022-12-23 [facility] Test 06:27:39 malignant neoplasm of colon (procedure) [code = 847762422] Future Scheduled 2022-12-23 SHINGLES VACCINES (1 Met [facility] Test 06:27:39 of 2) [code = SHINGLES VACCINES (1 of 2)] Future Scheduled 2022-12-23 BREAST CANCER [facility] Test 06:27:39 SCREENING [code = BREAST CANCER SCREENING] Future Scheduled 2022-12-23 Screening for [facility] Test 06:27:39 malignant neoplasm of colon (procedure) [code = 607486699] Future Scheduled 2022-12-23 Screening for [facility] Test 06:27:39 malignant neoplasm of colon (procedure) [code = 477107988] Future Scheduled 2022-12-23 HEPATITIS B VACCINES [facility] Test 06:27:39 (1 of 3 - Risk 3-dose series) [code = HEPATITIS B VACCINES (1 of 3 - Risk 3-dose series)] Future Scheduled 2022-12-23 COVID-19 VACCINE (3 - Me [facility] Test 06:27:39 Pfizer series) [code = COVID-19 VACCINE (3 - Pfizer series)] Future Scheduled 2022-12-23 65+ [facility]AL [email or web address] Test 06:27:39 VACCINE (4 - PPSV23 if available, else PCV20) [code = 65+ PNEUMOCOCCAL VACCINE (4 - PPSV23 if available, else PCV20)] Future Scheduled 2022-12-23 INFLUENZA VACCINE [facility] Test 06:27:39 [code = INFLUENZA VACCINE] Future Scheduled 2022-12-23 [facility] 06:27:39 malignant neoplasm of colon (procedure) [code = 642485041] Future Scheduled 2022-12-23 [facility] 06:27:39 malignant neoplasm of colon (procedure) [code = 239645873] Future Scheduled 2022-12-23 Screening for [facility] Test 06:27:39 malignant neoplasm of colon (procedure) [code = 828086563] Future Scheduled 2022-12-23 SHINGLES VACCINES (1 Met [facility] Test 06:27:39 of 2) [code = SHINGLES VACCINES (1 of 2)] Future Scheduled 2022-12-23 BREAST CANCER [facility] Test 06:27:39 SCREENING [code = BREAST CANCER SCREENING] Future Scheduled 2022-12-23 Screening for [facility] Test 06:27:39 malignant neoplasm of colon (procedure) [code = 165987942] Future Scheduled 2022-12-23 Screening for [facility] Test 06:27:39 malignant neoplasm of colon (procedure) [code = 881023734] Future Scheduled 2022-12-23 HEPATITIS B VACCINES [facility] Test 06:27:39 (1 of 3 - Risk 3-dose series) [code = HEPATITIS B VACCINES (1 of 3 - Risk 3-dose series)] Future Scheduled 2022-12-23 COVID-19 VACCINE (3 - Me [facility] Test 06:27:39 Pfizer series) [code = COVID-19 VACCINE (3 - Pfizer series)] Future Scheduled 2022-12-23 65+ PNEUMOCOCCAL [facility] Test 06:27:39 VACCINE (4 - PPSV23 if available, else PCV20) [code = 65+ PNEUMOCOCCAL VACCINE (4 - PPSV23 if available, else PCV20)] Future Scheduled 2022-12-23 INFLUENZA VACCINE [facility] Test 06:27:39 [code = INFLUENZA VACCINE] Future Scheduled 2022-12-23 Screening for [facility] Test 06:27:39 malignant neoplasm of colon (procedure) [code = [id number]] Future Scheduled 2022-12-23 Screening for [facility] Test 06:27:39 malignant neoplasm of colon (procedure) [code = 054945143] Future Scheduled 2022-12-23 Screening for [facility] Test 06:27:39 malignant neoplasm of colon (procedure) [code = 786457941] Future Scheduled 2022-12-23 SHINGLES VACCINES (1 [facility] Test 06:27:39 of 2) [code = SHINGLES VACCINES (1 of 2)] Future Scheduled 2022-12-23 BREAST CANCER [facility] Test 06:27:39 SCREENING [code = BREAST CANCER SCREENING] Future Scheduled 2022-12-23 [facility] 06:27:39 malignant neoplasm of colon (procedure) [code = 428311868] Future Scheduled 2022-12-23 [facility] 06:27:39 malignant neoplasm of colon (procedure) [code = 357443395] Future Scheduled 2022-12-23 HEPATITIS B VACCINES [facility] Test 06:27:39 (1 of 3 - Risk 3-dose series) [code = HEPATITIS B VACCINES (1 of 3 - Risk 3-dose series)] Future Scheduled 2022-12-23 COVID-19 VACCINE (3 - [facility] Test 06:27:39 Pfizer series) [code = COVID-19 VACCINE (3 - Pfizer series)] Future Scheduled 2022-12-23 65+ PNEUMOCOCCAL [facility] Test 06:27:39 VACCINE (4 - PPSV23 if available, else PCV20) [code = 65+ PNEUMOCOCCAL VACCINE (4 - PPSV23 if available, else PCV20)] Future Scheduled 2022-12-23 INFLUENZA VACCINE [facility] Test 06:27:39 [code = INFLUENZA VACCINE] Future Scheduled 2022-12-23 Screening for [facility] Test 06:27:39 malignant neoplasm of colon (procedure) [code = [id number]] Future Scheduled 2022-12-23 Screening for [facility] Test 06:27:39 malignant neoplasm of colon (procedure) [code = 396973967] Future Scheduled 2022-12-23 Screening for [facility] Test 06:27:39 malignant neoplasm of colon (procedure) [code = 448300681] Future Scheduled 2022-12-23 SHINGLES VACCINES (1 [facility] Test 06:27:39 of 2) [code = SHINGLES VACCINES (1 of 2)] Future Scheduled 2022-12-23 BREAST CANCER [facility] Test 06:27:39 SCREENING [code = BREAST CANCER SCREENING] Future Scheduled 2022-12-23 Screening for [facility] Test 06:27:39 malignant neoplasm of colon (procedure) [code = 861271604] Future Scheduled 2022-12-23 [facility] 06:27:39 malignant neoplasm of colon (procedure) [code = 695703515] Future Scheduled 2022-12-23 HEPATITIS B VACCINES [facility] Test 06:27:39 (1 of 3 - Risk 3-dose series) [code = HEPATITIS B VACCINES (1 of 3 - Risk 3-dose series)] Future Scheduled 2022-12-23 COVID-19 VACCINE (3 - [facility] Test 06:27:39 Pfizer series) [code = COVID-19 VACCINE (3 - Pfizer series)] Future Scheduled 2022-12-23 65+ [email or web address] 06:27:39 VACCINE (4 - PPSV23 if available, else PCV20) [code = 65+ PNEUMOCOCCAL VACCINE (4 - PPSV23 if available, else PCV20)] Future Scheduled 2022-12-23 INFLUENZA VACCINE [facility] Test 06:27:39 [code = INFLUENZA VACCINE] Future Scheduled 2022-12-23 Screening for [facility] Test 06:27:39 malignant neoplasm of colon (procedure) [code = 459499393] Future Scheduled 2022-12-23 Screening for [facility] Test 06:27:39 malignant neoplasm of colon (procedure) [code = 162160618] Future Scheduled 2022-12-23 Screening for [facility] Test 06:27:39 malignant neoplasm of colon (procedure) [code = 305499182] Future Scheduled 2022-12-23 SHINGLES VACCINES (1 [facility] Test 06:27:39 of 2) [code = SHINGLES VACCINES (1 of 2)] Future Scheduled 2022-12-23 BREAST CANCER [facility] Test 06:27:39 SCREENING [code = BREAST CANCER SCREENING] Future Scheduled 2022-12-23 Screening for [facility] Test 06:27:39 malignant neoplasm of colon (procedure) [code = 841785463] Future Scheduled 2022-12-23 Screening for [facility] Test 06:27:39 malignant neoplasm of colon (procedure) [code = 411047692] Future Scheduled 2022-12-23 HEPATITIS B VACCINES [facility] Test 06:27:39 (1 of 3 - Risk 3-dose series) [code = HEPATITIS B VACCINES (1 of 3 - Risk 3-dose series)] Future Scheduled 2022-12-23 COVID-19 VACCINE (3 - [facility] Test 06:27:39 Pfizer series) [code = COVID-19 VACCINE (3 - Pfizer series)] Future Scheduled 2022-12-23 65+ PNEUMOCOCCAL [facility] Test 06:27:39 VACCINE (4 - PPSV23 if available, else PCV20) [code = 65+ PNEUMOCOCCAL VACCINE (4 - PPSV23 if available, else PCV20)] Future Scheduled 2022-12-23 ZZZ INFLUENZA VACCINE [facility] Test 06:27:39 [code = ZZZ INFLUENZA VACCINE] Future Scheduled 2022-12-23 [facility] 06:27:39 malignant neoplasm of colon (procedure) [code = 146928273] Future Scheduled 2022-12-23 Screening for [facility] Test 06:27:39 malignant neoplasm of colon (procedure) [code = 554582864] Future Scheduled 2022-12-23 Screening for [facility] Test 06:27:39 malignant neoplasm of colon (procedure) [code = 399596066] Future Scheduled 2022-12-23 SHINGLES VACCINES (1 [facility] Test 06:27:39 of 2) [code = SHINGLES VACCINES (1 of 2)] Future Scheduled 2022-12-23 BREAST CANCER [facility] Test 06:27:39 SCREENING [code = BREAST CANCER SCREENING] Future Scheduled 2022-12-23 Screening for [facility] Test 06:27:39 malignant neoplasm of colon (procedure) [code = 832871166] Future Scheduled 2022-12-23 Screening for [facility] Test 06:27:39 malignant neoplasm of colon (procedure) [code = 993310751] Future Scheduled 2022-12-23 HEPATITIS B VACCINES [facility] Test 06:27:39 (1 of 3 - Risk 3-dose series) [code = HEPATITIS B VACCINES (1 of 3 - Risk 3-dose series)] Future Scheduled 2022-12-23 COVID-19 VACCINE (3 - [facility] Test 06:27:39 Pfizer series) [code = COVID-19 VACCINE (3 - Pfizer series)] Future Scheduled 2022-12-23 65+ PNEUMOCOCCAL [facility] Test 06:27:39 VACCINE (4 - PPSV23 if available, else PCV20) [code = 65+ PNEUMOCOCCAL VACCINE (4 - PPSV23 if available, else PCV20)] Future Scheduled 2022-12-23 ZZZ INFLUENZA VACCINE [facility] Test 06:27:39 [code = ZZZ INFLUENZA VACCINE] Future Scheduled 2022-12-13 [facility] 16:46:16 malignant neoplasm of colon (procedure) [code = 450454287] Future Scheduled 2022-12-13 [facility] 16:46:16 malignant neoplasm of colon (procedure) [code = 362212149] Future Scheduled 2022-12-13 [facility] 16:46:16 malignant neoplasm of colon (procedure) [code = 026796599] Future Scheduled 2022-12-13 SHINGLES VACCINES (1 [facility] Test 16:46:16 of 2) [code = SHINGLES VACCINES (1 of 2)] Future Scheduled 2022-12-13 BREAST CANCER [facility] Test 16:46:16 SCREENING [code = BREAST CANCER SCREENING] Future Scheduled 2022-12-13 Screening for [facility] Test 16:46:16 malignant neoplasm of colon (procedure) [code = 185470003] Future Scheduled 2022-12-13 Screening for [facility] Test 16:46:16 malignant neoplasm of colon (procedure) [code = 443423477] Future Scheduled 2022-12-13 HEPATITIS B VACCINES [facility] Test 16:46:16 (1 of 3 - Risk 3-dose series) [code = HEPATITIS B VACCINES (1 of 3 - Risk 3-dose series)] Future Scheduled 2022-12-13 COVID-19 VACCINE (3 - [facility] Test 16:46:16 Pfizer series) [code = COVID-19 VACCINE (3 - Pfizer series)] Future Scheduled 2022-12-13 65+ [email or web address] 16:46:16 VACCINE (4 - PPSV23 if available, else PCV20) [code = 65+ PNEUMOCOCCAL VACCINE (4 - PPSV23 if available, else PCV20)] Future Scheduled 2022-12-13 INFLUENZA VACCINE [facility] Test 16:46:16 [code = INFLUENZA VACCINE] Future Scheduled 2022-12-13 [facility] 16:46:16 malignant neoplasm of colon (procedure) [code = 751003833] Future Scheduled 2022-12-13 [facility] 16:46:16 malignant neoplasm of colon (procedure) [code = 351909869] Future Scheduled 2022-12-13 Screening for [facility] Test 16:46:16 malignant neoplasm of colon (procedure) [code = 426947679] Future Scheduled 2022-12-13 SHINGLES VACCINES (1 [facility] Test 16:46:16 of 2) [code = SHINGLES VACCINES (1 of 2)] Future Scheduled 2022-12-13 BREAST CANCER [facility] Test 16:46:16 SCREENING [code = BREAST CANCER SCREENING] Future Scheduled 2022-12-13 Screening for [facility] Test 16:46:16 malignant neoplasm of colon (procedure) [code = 993264799] Future Scheduled 2022-12-13 Screening for [facility] Test 16:46:16 malignant neoplasm of colon (procedure) [code = 097316329] Future Scheduled 2022-12-13 HEPATITIS B VACCINES [facility] Test 16:46:16 (1 of 3 - Risk 3-dose series) [code = HEPATITIS B VACCINES (1 of 3 - Risk 3-dose series)] Future Scheduled 2022-12-13 COVID-19 VACCINE (3 - [facility] Test 16:46:16 Pfizer series) [code = COVID-19 VACCINE (3 - Pfizer series)] Future Scheduled 2022-12-13 65+ PNEUMOCOCCAL [facility] Test 16:46:16 VACCINE (4 - PPSV23 if available, else PCV20) [code = 65+ PNEUMOCOCCAL VACCINE (4 - PPSV23 if available, else PCV20)] Future Scheduled 2022-12-13 INFLUENZA VACCINE [facility] Test 16:46:16 [code = INFLUENZA VACCINE] Future Scheduled 2022-12-13 Screening for [facility] Test 16:46:16 malignant neoplasm of colon (procedure) [code = 790185688] Future Scheduled 2022-12-13 Screening for [facility] Test 16:46:16 malignant neoplasm of colon (procedure) [code = 744928702] Future Scheduled 2022-12-13 Screening for [facility] Test 16:46:16 malignant neoplasm of colon (procedure) [code = 564314781] Future Scheduled 2022-12-13 SHINGLES VACCINES (1 [facility] Test 16:46:16 of 2) [code = SHINGLES VACCINES (1 of 2)] Future Scheduled 2022-12-13 BREAST CANCER [facility] Test 16:46:16 SCREENING [code = BREAST CANCER SCREENING] Future Scheduled 2022-12-13 Screening for [facility] Test 16:46:16 malignant neoplasm of colon (procedure) [code = 608262303] Future Scheduled 2022-12-13 Screening for [facility] Test 16:46:16 malignant neoplasm of colon (procedure) [code = 077185973] Future Scheduled 2022-12-13 HEPATITIS B VACCINES [facility] Test 16:46:16 (1 of 3 - Risk 3-dose series) [code = HEPATITIS B VACCINES (1 of 3 - Risk 3-dose series)] Future Scheduled 2022-12-13 COVID-19 VACCINE (3 - [facility] Test 16:46:16 Pfizer series) [code = COVID-19 VACCINE (3 - Pfizer series)] Future Scheduled 2022-12-13 65+ PNEUMOCOCCAL [facility] Test 16:46:16 VACCINE (4 - PPSV23 if available, else PCV20) [code = 65+ PNEUMOCOCCAL VACCINE (4 - PPSV23 if available, else PCV20)] Future Scheduled 2022-12-13 INFLUENZA VACCINE [facility] Test 16:46:16 [code = INFLUENZA VACCINE] Future Scheduled 2022-11-11 Screening for [facility] Test 09:27:47 malignant neoplasm of colon (procedure) [code = 765058199] Future Scheduled 2022-11-11 Screening for [facility] Test 09:27:47 malignant neoplasm of colon (procedure) [code = 826978804] Future Scheduled 2022-11-11 Screening for [facility] Test 09:27:47 malignant neoplasm of colon (procedure) [code = 249815452] Future Scheduled 2022-11-11 SHINGLES VACCINES (1 [facility] Test 09:27:47 of 2) [code = SHINGLES VACCINES (1 of 2)] Future Scheduled 2022-11-11 BREAST CANCER [facility] Test 09:27:47 SCREENING [code = BREAST CANCER SCREENING] Future Scheduled 2022-11-11 Screening for [facility] Test 09:27:47 malignant neoplasm of colon (procedure) [code = 963636640] Future Scheduled 2022-11-11 Screening for [facility] Test 09:27:47 malignant neoplasm of colon (procedure) [code = 321762802] Future Scheduled 2022-11-11 HEPATITIS B VACCINES [facility] Test 09:27:47 (1 of 3 - Risk 3-dose series) [code = HEPATITIS B VACCINES (1 of 3 - Risk 3-dose series)] Future Scheduled 2022-11-11 COVID-19 VACCINE (3 - [facility] Test 09:27:47 Pfizer series) [code = COVID-19 VACCINE (3 - Pfizer series)] Future Scheduled 2022-11-11 65+ PNEUMOCOCCAL [facility] Test 09:27:47 VACCINE (4 - PPSV23 if available, else PCV20) [code = 65+ PNEUMOCOCCAL VACCINE (4 - PPSV23 if available, else PCV20)] Future Scheduled 2022-11-11 INFLUENZA VACCINE [facility] Test 09:27:47 [code = INFLUENZA VACCINE] Future Scheduled 2022-11-11 Screening for [facility] Test 09:27:47 malignant neoplasm of colon (procedure) [code = 451207383] Future Scheduled 2022-11-11 Screening for [facility] Test 09:27:47 malignant neoplasm of colon (procedure) [code = 570621754] Future Scheduled 2022-11-11 Screening for [facility] Test 09:27:47 malignant neoplasm of colon (procedure) [code = 078280240] Future Scheduled 2022-11-11 SHINGLES VACCINES (1 [facility] Test 09:27:47 of 2) [code = SHINGLES VACCINES (1 of 2)] Future Scheduled 2022-11-11 BREAST CANCER [facility] Test 09:27:47 SCREENING [code = BREAST CANCER SCREENING] Future Scheduled 2022-11-11 Screening for [facility] Test 09:27:47 malignant neoplasm of colon (procedure) [code = 548434207] Future Scheduled 2022-11-11 Screening for [facility] Test 09:27:47 malignant neoplasm of colon (procedure) [code = 335773652] Future Scheduled 2022-11-11 HEPATITIS B VACCINES [facility] Test 09:27:47 (1 of 3 - Risk 3-dose series) [code = HEPATITIS B VACCINES (1 of 3 - Risk 3-dose series)] Future Scheduled 2022-11-11 COVID-19 VACCINE (3 - [facility] Test 09:27:47 Pfizer series) [code = COVID-19 VACCINE (3 - Pfizer series)] Future Scheduled 2022-11-11 65+ PNEUMOCOCCAL [facility] Test 09:27:47 VACCINE (4 - PPSV23 if available, else PCV20) [code = 65+ PNEUMOCOCCAL VACCINE (4 - PPSV23 if available, else PCV20)] Future Scheduled 2022-11-11 INFLUENZA VACCINE [facility] Test 09:27:47 [code = INFLUENZA VACCINE] Future [facility]uled [facility]22-11-11 [facility] 09:[facility]:47 malignant neoplasm of colon (procedure) [code = 046736370] Future Scheduled 2022-11-11 Screening for [facility] Test 09:27:47 malignant neoplasm of colon (procedure) [code = 363684157] Future Scheduled 2022-11-11 Screening for [facility] Test 09:27:47 malignant neoplasm of colon (procedure) [code = 394885384] Future Scheduled 2022-11-11 SHINGLES VACCINES (1 [facility] Test 09:27:47 of 2) [code = SHINGLES VACCINES (1 of 2)] Future Scheduled 2022-11-11 BREAST CANCER [facility] Test 09:27:47 SCREENING [code = BREAST CANCER SCREENING] Future Scheduled 2022-11-11 Screening for [facility] Test 09:27:47 malignant neoplasm of colon (procedure) [code = 542139493] Future Scheduled 2022-11-11 Screening for [facility] Test 09:27:47 malignant neoplasm of colon (procedure) [code = 869049152] Future Scheduled 2022-11-11 HEPATITIS B VACCINES [facility] Test 09:27:47 (1 of 3 - Risk 3-dose series) [code = HEPATITIS B VACCINES (1 of 3 - Risk 3-dose series)] Future Scheduled 2022-11-11 COVID-19 VACCINE (3 - [facility] Test 09:27:47 Pfizer series) [code = COVID-19 VACCINE (3 - Pfizer series)] Future Scheduled 2022-11-11 65+ PNEUMOCOCCAL [facility] Test 09:27:47 VACCINE (4 - PPSV23 if available, else PCV20) [code = 65+ PNEUMOCOCCAL VACCINE (4 - PPSV23 if available, else PCV20)] Future Scheduled 2022-11-11 INFLUENZA VACCINE [facility] Test 09:27:47 [code = INFLUENZA VACCINE] Future Scheduled 2022-10-27 Screening for [facility] Test 22:40:19 malignant neoplasm of colon (procedure) [code = 875671055] Future Scheduled 2022-10-27 [facility] 22:40:19 malignant neoplasm of colon (procedure) [code = 009867021] Future Scheduled 2022-10-27 [facility] 22:40:19 malignant neoplasm of colon (procedure) [code = 795191647] Future Scheduled 2022-10-27 SHINGLES VACCINES (1 [facility] Test 22:40:19 of 2) [code = SHINGLES VACCINES (1 of 2)] Future Scheduled 2022-10-27 BREAST CANCER [facility] Test 22:40:19 SCREENING [code = BREAST CANCER SCREENING] Future Scheduled 2022-10-27 Screening for [facility] Test 22:40:19 malignant neoplasm of colon (procedure) [code = 011511844] Future Scheduled 2022-10-27 Screening for [facility] Test 22:40:19 malignant neoplasm of colon (procedure) [code = 775202710] Future Scheduled 2022-10-27 HEPATITIS B VACCINES [facility] Test 22:40:19 (1 of 3 - Risk 3-dose series) [code = HEPATITIS B VACCINES (1 of 3 - Risk 3-dose series)] Future Scheduled 2022-10-27 COVID-19 VACCINE (3 - [facility] Test 22:40:19 Pfizer series) [code = COVID-19 VACCINE (3 - Pfizer series)] Future Scheduled 2022-10-27 65+ [email or web address] Test 22:40:19 VACCINE (4 - PPSV23 if available, else PCV20) [code = 65+ PNEUMOCOCCAL VACCINE (4 - PPSV23 if available, else PCV20)] Future Scheduled 2022-10-27 INFLUENZA VACCINE [facility] Test 22:40:19 [code = INFLUENZA VACCINE] Future Scheduled 2022-10-27 Screening for [facility] Test 22:40:19 malignant neoplasm of colon (procedure) [code = 546376406] Future Scheduled 2022-10-27 Screening for [facility] Test 22:40:19 malignant neoplasm of colon (procedure) [code = 360757859] Future Scheduled 2022-10-27 Screening for [facility] Test 22:40:19 malignant neoplasm of colon (procedure) [code = 363179046] Future Scheduled 2022-10-27 SHINGLES VACCINES (1 [facility] Test 22:40:19 of 2) [code = SHINGLES VACCINES (1 of 2)] Future Scheduled 2022-10-27 BREAST CANCER [facility] Test 22:40:19 SCREENING [code = BREAST CANCER SCREENING] Future Scheduled 2022-10-27 Screening for [facility] Test 22:40:19 malignant neoplasm of colon (procedure) [code = 692307002] Future Scheduled 2022-10-27 Screening for [facility] Test 22:40:19 malignant neoplasm of colon (procedure) [code = 531414641] Future Scheduled 2022-10-27 HEPATITIS B VACCINES [facility] Test 22:40:19 (1 of 3 - Risk 3-dose series) [code = HEPATITIS B VACCINES (1 of 3 - Risk 3-dose series)] Future Scheduled 2022-10-27 COVID-19 VACCINE (3 - [facility] Test 22:40:19 Pfizer series) [code = COVID-19 VACCINE (3 - Pfizer series)] Future Scheduled 2022-10-27 65+ PNEUMOCOCCAL [facility] Test 22:40:19 VACCINE (4 - PPSV23 if available, else PCV20) [code = 65+ PNEUMOCOCCAL VACCINE (4 - PPSV23 if available, else PCV20)] Future Scheduled 2022-10-27 INFLUENZA VACCINE [facility] Test 22:40:19 [code = INFLUENZA VACCINE] Future Scheduled 2022-09-10 SHINGLES VACCINES (1 [facility] Test 15:06:53 of 2) [code = SHINGLES VACCINES (1 of 2)] Future Scheduled 2022-09-10 BREAST CANCER [facility] Test 15:06:53 SCREENING [code = BREAST CANCER SCREENING] Future Scheduled 2022-09-10 COLONOSCOPY SCREENING [facility] Test 15:06:53 [code = COLONOSCOPY SCREENING] Future Scheduled 2022-09-10 HEPATITIS B VACCINES [facility] Test 15:06:53 (1 of 3 - Risk 3-dose series) [code = HEPATITIS B VACCINES (1 of 3 - Risk 3-dose series)] Future Scheduled 2022-09-10 COVID-19 VACCINE (3 - [facility] Test 15:06:53 Booster for Pfizer series) [code = COVID-19 VACCINE (3 - Booster for Pfizer series)] Future Scheduled 2022-09-10 65+ PNEUMOCOCCAL [facility] Test 15:06:53 VACCINE (4 - PPSV23 if available, else PCV20) [code = 65+ PNEUMOCOCCAL VACCINE (4 - PPSV23 if available, else PCV20)] Future Scheduled 2022-09-10 INFLUENZA VACCINE [facility] Test 15:06:53 [code = INFLUENZA VACCINE] Future Scheduled 2022-09-10 SHINGLES VACCINES (1 [facility] Test 15:06:53 of 2) [code = SHINGLES VACCINES (1 of 2)] Future Scheduled 2022-09-10 BREAST CANCER [facility] Test 15:06:53 SCREENING [code = BREAST CANCER SCREENING] Future Scheduled 2022-09-10 COLONOSCOPY SCREENING [facility] Test 15:06:53 [code = COLONOSCOPY SCREENING] Future Scheduled 2022-09-10 HEPATITIS B VACCINES [facility] Test 15:06:53 (1 of 3 - Risk 3-dose series) [code = HEPATITIS B VACCINES (1 of 3 - Risk 3-dose series)] Future Scheduled 2022-09-10 COVID-19 VACCINE (3 - Me [facility] Test 15:06:53 Booster for Pfizer series) [code = COVID-19 VACCINE (3 - Booster for Pfizer series)] Future Scheduled 2022-09-10 65+ [facility] VACCINE (4 - PPSV23 if available, else PCV20) [code = 65+ PNEUMOCOCCAL VACCINE (4 - PPSV23 if available, else PCV20)] Future Scheduled 2022-09-10 INFLUENZA VACCINE [facility] Test 15:06:53 [code = INFLUENZA VACCINE] Future Scheduled 2022-09-10 SHINGLES VACCINES (1 [facility] Test 15:06:53 of 2) [code = SHINGLES VACCINES (1 of 2)] Future Scheduled 2022-09-10 BREAST CANCER [facility] Test 15:06:53 SCREENING [code = BREAST CANCER SCREENING] Future Scheduled 2022-09-10 COLONOSCOPY SCREENING [facility] Test 15:06:53 [code = COLONOSCOPY SCREENING] Future Scheduled 2022-09-10 HEPATITIS B VACCINES [facility] Test 15:06:53 (1 of 3 - Risk 3-dose series) [code = HEPATITIS B VACCINES (1 of 3 - Risk 3-dose series)] Future Scheduled 2022-09-10 COVID-19 VACCINE (3 - Me [facility] Test 15:06:53 Booster for Pfizer series) [code = COVID-19 VACCINE (3 - Booster for Pfizer series)] Future Scheduled 2022-09-10 65+ PNEUMOCOCCAL [facility] Test 15:06:53 VACCINE (4 - PPSV23 if available, else PCV20) [code = 65+ PNEUMOCOCCAL VACCINE (4 - PPSV23 if available, else PCV20)] Future Scheduled 2022-09-10 INFLUENZA VACCINE [facility] Test 15:06:53 [code = INFLUENZA VACCINE] Future Scheduled 2022-09-10 SHINGLES VACCINES (1 [facility] Test 15:06:53 of 2) [code = SHINGLES VACCINES (1 of 2)] Future Scheduled 2022-09-10 BREAST CANCER [facility] Test 15:06:53 SCREENING [code = BREAST CANCER SCREENING] Future Scheduled 2022-09-10 COLONOSCOPY SCREENING [facility] Test 15:06:53 [code = COLONOSCOPY SCREENING] Future Scheduled 2022-09-10 HEPATITIS B VACCINES Met [facility] Test 15:06:53 (1 of 3 - Risk 3-dose series) [code = HEPATITIS B VACCINES (1 of 3 - Risk 3-dose series)] Future Scheduled 2022-09-10 COVID-19 VACCINE (3 - [facility] Test 15:06:53 Booster for Pfizer series) [code = COVID-19 VACCINE (3 - Booster for Pfizer series)] Future Scheduled 2022-09-10 65+ [facility] VACCINE (4 - PPSV23 if available, else PCV20) [code = 65+ PNEUMOCOCCAL VACCINE (4 - PPSV23 if available, else PCV20)] Future Scheduled 2022-09-10 INFLUENZA VACCINE Method [facility] Test 15:06:53 [code = INFLUENZA VACCINE] Future Scheduled 2022-09-10 SHINGLES VACCINES (1 Met [facility] Test 15:06:53 of 2) [code = SHINGLES VACCINES (1 of 2)] Future Scheduled 2022-09-10 BREAST CANCER [facility] Test 15:06:53 SCREENING [code = BREAST CANCER SCREENING] Future Scheduled 2022-09-10 COLONOSCOPY SCREENING [facility] Test 15:06:53 [code = COLONOSCOPY SCREENING] Future Scheduled 2022-09-10 HEPATITIS B VACCINES Met [facility] Test 15:06:53 (1 of 3 - Risk 3-dose series) [code = HEPATITIS B VACCINES (1 of 3 - Risk 3-dose series)] Future Scheduled 2022-09-10 COVID-19 VACCINE (3 - Me [facility] Test 15:06:53 Booster for Pfizer series) [code = COVID-19 VACCINE (3 - Booster for Pfizer series)] Future Scheduled 2022-09-10 65+ [facility]:06:[facility] VACCINE (4 - PPSV23 if available, else PCV20) [code = 65+ PNEUMOCOCCAL VACCINE (4 - PPSV23 if available, else PCV20)] Future Scheduled 2022-09-10 INFLUENZA VACCINE Method [facility] Test 15:06:53 [code = INFLUENZA VACCINE] Future Scheduled 2022-09-10 SHINGLES VACCINES (1 Met [facility] Test 15:06:53 of 2) [code = SHINGLES VACCINES (1 of 2)] Future Scheduled 2022-09-10 BREAST CANCER [facility] Test 15:06:53 SCREENING [code = BREAST CANCER SCREENING] Future Scheduled 2022-09-10 COLONOSCOPY SCREENING [facility] Test 15:06:53 [code = COLONOSCOPY SCREENING] Future Scheduled 2022-09-10 HEPATITIS B VACCINES Met [facility] Test 15:06:53 (1 of 3 - Risk 3-dose series) [code = HEPATITIS B VACCINES (1 of 3 - Risk 3-dose series)] Future Scheduled 2022-09-10 COVID-19 VACCINE (3 - Me [facility] Test 15:06:53 Booster for Pfizer series) [code = COVID-19 VACCINE (3 - Booster for Pfizer series)] Future Scheduled 2022-09-10 65+ [email or web address] Test 15:06:53 VACCINE (4 - PPSV23 if available, else PCV20) [code = 65+ PNEUMOCOCCAL VACCINE (4 - PPSV23 if available, else PCV20)] Future Scheduled 2022-09-10 INFLUENZA VACCINE Method [facility] Test 15:06:53 [code = INFLUENZA VACCINE] Future Scheduled 2022-09-10 SHINGLES VACCINES (1 Met [facility] Test 15:06:53 of 2) [code = SHINGLES VACCINES (1 of 2)] Future Scheduled 2022-09-10 BREAST CANCER [facility] Test 15:06:53 SCREENING [code = BREAST CANCER SCREENING] Future Scheduled 2022-09-10 COLONOSCOPY SCREENING [facility] Test 15:06:53 [code = COLONOSCOPY SCREENING] Future Scheduled 2022-09-10 HEPATITIS B VACCINES Met [facility] Test 15:06:53 (1 of 3 - Risk 3-dose series) [code = HEPATITIS B VACCINES (1 of 3 - Risk 3-dose series)] Future Scheduled 2022-09-10 COVID-19 VACCINE (3 - [facility] Test 15:06:53 Booster for Pfizer series) [code = COVID-19 VACCINE (3 - Booster for Pfizer series)] Future Scheduled 2022-09-10 65+ [facility]:06:[facility] VACCINE (4 - PPSV23 if available, else PCV20) [code = 65+ PNEUMOCOCCAL VACCINE (4 - PPSV23 if available, else PCV20)] Future Scheduled 2022-09-10 INFLUENZA VACCINE [facility] Test 15:06:53 [code = INFLUENZA VACCINE] Future Scheduled 2022-09-10 SHINGLES VACCINES (1 Met [facility] Test 15:06:53 of 2) [code = SHINGLES VACCINES (1 of 2)] Future Scheduled 2022-09-10 BREAST CANCER [facility] Test 15:06:53 SCREENING [code = BREAST CANCER SCREENING] Future Scheduled 2022-09-10 COLONOSCOPY SCREENING [facility] Test 15:06:53 [code = COLONOSCOPY SCREENING] Future Scheduled 2022-09-10 HEPATITIS B VACCINES Met [facility] Test 15:06:53 (1 of 3 - Risk 3-dose series) [code = HEPATITIS B VACCINES (1 of 3 - Risk 3-dose series)] Future Scheduled 2022-09-10 COVID-19 VACCINE (3 - [facility] Test 15:06:53 Booster for Pfizer series) [code = COVID-19 VACCINE (3 - Booster for Pfizer series)] Future Scheduled 2022-09-10 65+ [email or web address] Test 15:06:53 VACCINE (4 - PPSV23 if available, else PCV20) [code = 65+ PNEUMOCOCCAL VACCINE (4 - PPSV23 if available, else PCV20)] Future Scheduled 2022-09-10 INFLUENZA VACCINE Method [facility] Test 15:06:53 [code = INFLUENZA VACCINE] Future Scheduled 2022-08-26 SHINGLES VACCINES (1 Met [facility] Test 14:43:48 of 2) [code = SHINGLES VACCINES (1 of 2)] Future Scheduled 2022-08-26 BREAST CANCER [facility] Test 14:43:48 SCREENING [code = BREAST CANCER SCREENING] Future Scheduled 2022-08-26 COLONOSCOPY SCREENING [facility] Test 14:43:48 [code = COLONOSCOPY SCREENING] Future Scheduled 2022-08-26 HEPATITIS B VACCINES Met [facility] Test 14:43:48 (1 of 3 - Risk 3-dose series) [code = HEPATITIS B VACCINES (1 of 3 - Risk 3-dose series)] Future Scheduled 2022-08-26 COVID-19 VACCINE (3 - Me [facility] Test 14:43:48 Booster for Pfizer series) [code = COVID-19 VACCINE (3 - Booster for Pfizer series)] Future Scheduled 2022-08-26 65+ [email or web address] Test 14:43:48 VACCINE (4 - PPSV23 if available, else PCV20) [code = 65+ PNEUMOCOCCAL VACCINE (4 - PPSV23 if available, else PCV20)] Future Scheduled 2022-08-26 INFLUENZA VACCINE Method [facility] Test 14:43:48 [code = INFLUENZA VACCINE] Future Scheduled 2022-08-07 SHINGLES VACCINES (1 Met [facility] Test 23:30:11 of 2) [code = SHINGLES VACCINES (1 of 2)] Future Scheduled 2022-08-07 BREAST CANCER [facility] Test 23:30:11 SCREENING [code = BREAST CANCER SCREENING] Future Scheduled 2022-08-07 COLONOSCOPY SCREENING [facility] Test 23:30:11 [code = COLONOSCOPY SCREENING] Future Scheduled 2022-08-07 HEPATITIS B VACCINES Met [facility] Test 23:30:11 (1 of 3 - Risk 3-dose series) [code = HEPATITIS B VACCINES (1 of 3 - Risk 3-dose series)] Future Scheduled 2022-08-07 COVID-19 VACCINE (3 - Me [facility] Test 23:30:11 Booster for Pfizer series) [code = COVID-19 VACCINE (3 - Booster for Pfizer series)] Future Scheduled 2022-08-07 65+ PNEUMOCOCCAL [facility] Test 23:30:11 VACCINE (4 - PPSV23 if available, else PCV20) [code = 65+ PNEUMOCOCCAL VACCINE (4 - PPSV23 if available, else PCV20)] Future Scheduled 2022-08-07 INFLUENZA VACCINE Method [facility] Test 23:30:11 [code = INFLUENZA VACCINE] Future Scheduled 2022-08-07 SHINGLES VACCINES (1 Met [facility] Test 23:30:11 of 2) [code = SHINGLES VACCINES (1 of 2)] Future Scheduled 2022-08-07 BREAST CANCER [facility] Test 23:30:11 SCREENING [code = BREAST CANCER SCREENING] Future Scheduled 2022-08-07 COLONOSCOPY SCREENING [facility] Test 23:30:11 [code = COLONOSCOPY SCREENING] Future Scheduled 2022-08-07 HEPATITIS B VACCINES Met [facility] Test 23:30:11 (1 of 3 - Risk 3-dose series) [code = HEPATITIS B VACCINES (1 of 3 - Risk 3-dose series)] Future Scheduled 2022-08-07 COVID-19 VACCINE (3 - [facility] Test 23:30:11 Booster for Pfizer series) [code = COVID-19 VACCINE (3 - Booster for Pfizer series)] Future Scheduled 2022-08-07 65+ [facility]:30:11 VACCINE (4 - PPSV23 if available, else PCV20) [code = 65+ PNEUMOCOCCAL VACCINE (4 - PPSV23 if available, else PCV20)] Future Scheduled 2022-08-07 INFLUENZA VACCINE Method [facility] Test 23:30:11 [code = INFLUENZA VACCINE] Future Scheduled 2022-08-06 SHINGLES VACCINES (1 Met [facility] Test 15:48:02 of 2) [code = SHINGLES VACCINES (1 of 2)] Future Scheduled 2022-08-06 BREAST CANCER [facility] Test 15:48:02 SCREENING [code = BREAST CANCER SCREENING] Future Scheduled 2022-08-06 COLONOSCOPY SCREENING [facility] Test 15:48:02 [code = COLONOSCOPY SCREENING] Future Scheduled 2022-08-06 HEPATITIS B VACCINES Met [facility] Test 15:48:02 (1 of 3 - Risk 3-dose series) [code = HEPATITIS B VACCINES (1 of 3 - Risk 3-dose series)] Future Scheduled 2022-08-06 COVID-19 VACCINE (3 - Me [facility] Test 15:48:02 Booster for Pfizer series) [code = COVID-19 VACCINE (3 - Booster for Pfizer series)] Future Scheduled 2022-08-06 65+ [email or web address] Test 15:48:02 VACCINE (4 - PPSV23 if available, else PCV20) [code = 65+ PNEUMOCOCCAL VACCINE (4 - PPSV23 if available, else PCV20)] Future Scheduled 2022-08-06 INFLUENZA VACCINE Method [facility] Test 15:48:02 [code = INFLUENZA VACCINE] Future Scheduled 2022-06-11 SHINGLES VACCINES (1 Met [facility] Test 16:10:12 of 2) [code = SHINGLES VACCINES (1 of 2)] Future Scheduled 2022-06-11 BREAST CANCER [facility] Test 16:10:12 SCREENING [code = BREAST CANCER SCREENING] Future Scheduled 2022-06-11 COLONOSCOPY SCREENING [facility] Test 16:10:12 [code = COLONOSCOPY SCREENING] Future Scheduled 2022-06-11 HEPATITIS B VACCINES Met [facility] Test 16:10:12 (1 of 3 - Risk 3-dose series) [code = HEPATITIS B VACCINES (1 of 3 - Risk 3-dose series)] Future Scheduled 2022-06-11 COVID-19 VACCINE (3 - Me [facility] Test 16:10:12 Booster for Pfizer series) [code = COVID-19 VACCINE (3 - Booster for Pfizer series)] Future Scheduled 2022-06-11 65+ [email or web address] Test 16:10:12 VACCINE (4 - PPSV23 if available, else PCV20) [code = 65+ PNEUMOCOCCAL VACCINE (4 - PPSV23 if available, else PCV20)] Future Scheduled 2022-06-11 INFLUENZA VACCINE [facility] Test 16:10:12 [code = INFLUENZA VACCINE] Future Scheduled 2022-06-11 SHINGLES VACCINES (1 Met [facility] Test 16:10:12 of 2) [code = SHINGLES VACCINES (1 of 2)] Future Scheduled 2022-06-11 BREAST CANCER [facility] Test 16:10:12 SCREENING [code = BREAST CANCER SCREENING] Future Scheduled 2022-06-11 COLONOSCOPY SCREENING [facility] Test 16:10:12 [code = COLONOSCOPY SCREENING] Future Scheduled 2022-06-11 HEPATITIS B VACCINES Met [facility] Test 16:10:12 (1 of 3 - Risk 3-dose series) [code = HEPATITIS B VACCINES (1 of 3 - Risk 3-dose series)] Future Scheduled 2022-06-11 COVID-19 VACCINE (3 - Me [facility] Test 16:10:12 Booster for Pfizer series) [code = COVID-19 VACCINE (3 - Booster for Pfizer series)] Future Scheduled 2022-06-11 65+ [facility] 16:10[facility]12 VACCINE (4 - PPSV23 if available, else PCV20) [code = 65+ PNEUMOCOCCAL VACCINE (4 - PPSV23 if available, else PCV20)] Future Scheduled 2022-06-11 INFLUENZA VACCINE Method [facility] Test 16:10:12 [code = INFLUENZA VACCINE] Future Scheduled 2022-06-11 SHINGLES VACCINES (1 Met [facility] Test 16:10:12 of 2) [code = SHINGLES VACCINES (1 of 2)] Future Scheduled 2022-06-11 BREAST CANCER [facility] Test 16:10:12 SCREENING [code = BREAST CANCER SCREENING] Future Scheduled 2022-06-11 COLONOSCOPY SCREENING [facility] Test 16:10:12 [code = COLONOSCOPY SCREENING] Future Scheduled 2022-06-11 HEPATITIS B VACCINES Met [facility] Test 16:10:12 (1 of 3 - Risk 3-dose series) [code = HEPATITIS B VACCINES (1 of 3 - Risk 3-dose series)] Future Scheduled 2022-06-11 COVID-19 VACCINE (3 - Me [facility] Test 16:10:12 Booster for Pfizer series) [code = COVID-19 VACCINE (3 - Booster for Pfizer series)] Future Scheduled 2022-06-11 65+ [email or web address] Test 16:10:12 VACCINE (4 - PPSV23 if available, else PCV20) [code = 65+ PNEUMOCOCCAL VACCINE (4 - PPSV23 if available, else PCV20)] Future Scheduled 2022-06-11 INFLUENZA VACCINE [facility] Test 16:10:12 [code = INFLUENZA VACCINE] Future Scheduled 2022-06-11 SHINGLES VACCINES (1 Met [facility] Test 16:10:12 of 2) [code = SHINGLES VACCINES (1 of 2)] Future Scheduled 2022-06-11 BREAST CANCER [facility] Test 16:10:12 SCREENING [code = BREAST CANCER SCREENING] Future Scheduled 2022-06-11 COLONOSCOPY SCREENING [facility] Test 16:10:12 [code = COLONOSCOPY SCREENING] Future Scheduled 2022-06-11 HEPATITIS B VACCINES Met [facility] Test 16:10:12 (1 of 3 - Risk 3-dose series) [code = HEPATITIS B VACCINES (1 of 3 - Risk 3-dose series)] Future Scheduled 2022-06-11 COVID-19 VACCINE (3 - Me [facility] Test 16:10:12 Booster for Pfizer series) [code = COVID-19 VACCINE (3 - Booster for Pfizer series)] Future Scheduled 2022-06-11 65+ [email or web address] Test 16:10:12 VACCINE (4 - PPSV23 if available, else PCV20) [code = 65+ PNEUMOCOCCAL VACCINE (4 - PPSV23 if available, else PCV20)] Future Scheduled 2022-06-11 INFLUENZA VACCINE [facility] Test 16:10:12 [code = INFLUENZA VACCINE] Future Scheduled 2022-06-11 SHINGLES VACCINES (1 Met [facility] Test 16:10:12 of 2) [code = SHINGLES VACCINES (1 of 2)] Future Scheduled 2022-06-11 BREAST CANCER [facility] Test 16:10:12 SCREENING [code = BREAST CANCER SCREENING] Future Scheduled 2022-06-11 COLONOSCOPY SCREENING [facility] Test 16:10:12 [code = COLONOSCOPY SCREENING] Future Scheduled 2022-06-11 HEPATITIS B VACCINES Met [facility] Test 16:10:12 (1 of 3 - Risk 3-dose series) [code = HEPATITIS B VACCINES (1 of 3 - Risk 3-dose series)] Future Scheduled 2022-06-11 COVID-19 VACCINE (3 - Me [facility] Test 16:10:12 Booster for [...] 2022-06-11 SHINGLES VACCINES (1 Met [facility] Test 16:10:12 of 2) [code = SHINGLES VACCINES (1 of 2)] Future Scheduled 2022-06-11 BREAST CANCER [facility] Test 16:10:12 SCREENING [code = BREAST CANCER SCREENING] Future Scheduled 2022-06-11 COLONOSCOPY SCREENING [facility] Test 16:10:12 [code = COLONOSCOPY SCREENING] Future Scheduled 2022-06-11 HEPATITIS B VACCINES Met [facility] Test 16:10:12 (1 of 3 - Risk 3-dose series) [code = HEPATITIS B VACCINES (1 of 3 - Risk 3-dose series)] Future Scheduled 2022-06-11 COVID-19 VACCINE (3 - [facility] Test 16:10:12 Booster for Pfizer series) [code = COVID-19 VACCINE (3 - Booster for Pfizer series)] Future Scheduled 2022-06-11 65+ [facility] 16:10[facility]12 VACCINE (4 - PPSV23 if available, else PCV20) [code = 65+ PNEUMOCOCCAL VACCINE (4 - PPSV23 if available, else PCV20)] Future Scheduled 2022-06-11 INFLUENZA VACCINE [facility] Test 16:10:12 [code = INFLUENZA VACCINE] Future Scheduled 2022-06-11 SHINGLES VACCINES (1 Met [facility] Test 16:10:12 of 2) [code = SHINGLES VACCINES (1 of 2)] Future Scheduled 2022-06-11 BREAST CANCER [facility] Test 16:10:12 SCREENING [code = BREAST CANCER SCREENING] Future Scheduled 2022-06-11 COLONOSCOPY SCREENING [facility] Test 16:10:12 [code = COLONOSCOPY SCREENING] Future Scheduled 2022-06-11 HEPATITIS B VACCINES Met [facility] Test 16:10:12 (1 of 3 - Risk 3-dose series) [code = HEPATITIS B VACCINES (1 of 3 - Risk 3-dose series)] Future Scheduled 2022-06-11 COVID-19 VACCINE (3 - [facility] Test 16:10:12 Booster for Pfizer series) [code = COVID-19 VACCINE (3 - Booster for Pfizer series)] Future Scheduled 2022-06-11 65+ [email or web address] Test 16:10:12 VACCINE (4 - PPSV23 if available, else PCV20) [code = 65+ PNEUMOCOCCAL VACCINE (4 - PPSV23 if available, else PCV20)] Future Scheduled 2022-06-11 INFLUENZA VACCINE [facility] Test 16:10:12 [code = INFLUENZA VACCINE] Future Scheduled 2022-06-11 SHINGLES VACCINES (1 Met [facility] Test 16:10:12 of 2) [code = SHINGLES VACCINES (1 of 2)] Future Scheduled 2022-06-11 BREAST CANCER [facility] Test 16:10:12 SCREENING [code = BREAST CANCER SCREENING] Future Scheduled 2022-06-11 COLONOSCOPY SCREENING [facility] Test 16:10:12 [code = COLONOSCOPY SCREENING] Future Scheduled 2022-06-11 HEPATITIS B VACCINES Met [facility] Test 16:10:12 (1 of 3 - Risk 3-dose series) [code = HEPATITIS B VACCINES (1 of 3 - Risk 3-dose series)] Future Scheduled 2022-06-11 COVID-19 VACCINE (3 - [facility] Test 16:10:12 Booster for Pfizer series) [code = COVID-19 VACCINE (3 - Booster for Pfizer series)] Future Scheduled 2022-06-11 65+ [email or web address] Test 16:10:12 VACCINE (4 - PPSV23 if available, else PCV20) [code = 65+ PNEUMOCOCCAL VACCINE (4 - PPSV23 if available, else PCV20)] Future Scheduled 2022-06-11 INFLUENZA VACCINE [facility] Test 16:10:12 [code = INFLUENZA VACCINE] Future Scheduled 2022-06-11 SHINGLES VACCINES (1 Met [facility] Test 16:10:12 of 2) [code = SHINGLES VACCINES (1 of 2)] Future Scheduled 2022-06-11 BREAST CANCER [facility] Test 16:10:12 SCREENING [code = BREAST CANCER SCREENING] Future Scheduled 2022-06-11 COLONOSCOPY SCREENING [facility] Test 16:10:12 [code = COLONOSCOPY SCREENING] Future Scheduled 2022-06-11 HEPATITIS B VACCINES Met [facility] Test 16:10:12 (1 of 3 - Risk 3-dose series) [code = HEPATITIS B VACCINES (1 of 3 - Risk 3-dose series)] Future Scheduled 2022-06-11 COVID-19 VACCINE (3 - [facility] Test 16:10:12 Booster for Pfizer series) [code = COVID-19 VACCINE (3 - Booster for Pfizer series)] Future Scheduled 2022-06-11 65+ [email or web address] Test 16:10:12 VACCINE (4 - PPSV23 if available, else PCV20) [code = 65+ PNEUMOCOCCAL VACCINE (4 - PPSV23 if available, else PCV20)] Future Scheduled 2022-06-11 INFLUENZA VACCINE [facility] Test 16:10:12 [code = INFLUENZA VACCINE] Future Scheduled 2022-05-10 SHINGLES VACCINES (1 Met [facility] Test 10:21:35 of 2) [code = SHINGLES VACCINES (1 of 2)] Future Scheduled 2022-05-10 BREAST CANCER [facility] Test 10:21:35 SCREENING [code = BREAST CANCER SCREENING] Future Scheduled 2022-05-10 COLONOSCOPY SCREENING [facility] Test 10:21:35 [code = COLONOSCOPY SCREENING] Future Scheduled 2022-05-10 HEPATITIS B VACCINES Met [facility] Test 10:21:35 (1 of 3 - Risk 3-dose series) [code = HEPATITIS B VACCINES (1 of 3 - Risk 3-dose series)] Future Scheduled 2022-05-10 COVID-19 VACCINE (3 - Me [facility] Test 10:21:35 Booster for Pfizer series) [code = COVID-19 VACCINE (3 - Booster for Pfizer series)] Future Scheduled 2022-05-10 65+ [email or web address] Test 10:21:35 VACCINE (4 - PPSV23 if available, else PCV20) [code = 65+ PNEUMOCOCCAL VACCINE (4 - PPSV23 if available, else PCV20)] Future Scheduled 2022-05-10 INFLUENZA VACCINE [facility] Test 10:21:35 [code = INFLUENZA VACCINE] Future Scheduled 2022-05-10 SHINGLES VACCINES (1 Met [facility] Test 10:21:35 of 2) [code = SHINGLES VACCINES (1 of 2)] Future Scheduled 2022-05-10 BREAST CANCER [facility] Test 10:21:35 SCREENING [code = BREAST CANCER SCREENING] Future Scheduled 2022-05-10 COLONOSCOPY SCREENING [facility] Test 10:21:35 [code = COLONOSCOPY SCREENING] Future Scheduled 2022-05-10 HEPATITIS B VACCINES Met [facility] Test 10:21:35 (1 of 3 - Risk 3-dose series) [code = HEPATITIS B VACCINES (1 of 3 - Risk 3-dose series)] Future Scheduled 2022-05-10 COVID-19 VACCINE (3 - Me [facility] Test 10:21:35 Booster for Pfizer series) [code = COVID-19 VACCINE (3 - Booster for Pfizer series)] Future Scheduled 2022-05-10 65+ PNEUMOCOCCAL [facility] Test 10:21:35 VACCINE (4 - PPSV23 if available, else PCV20) [code = 65+ PNEUMOCOCCAL VACCINE (4 - PPSV23 if available, else PCV20)] Future Scheduled 2022-05-10 INFLUENZA VACCINE [facility] Test 10:21:35 [code = INFLUENZA VACCINE] Future Scheduled 2022-05-06 SHINGLES VACCINES (1 Met [facility] Test 14:03:13 of 2) [code = SHINGLES VACCINES (1 of 2)] Future Scheduled 2022-05-06 BREAST CANCER [facility] Test 14:03:13 SCREENING [code = BREAST CANCER SCREENING] Future Scheduled 2022-05-06 COLONOSCOPY SCREENING [facility] Test 14:03:13 [code = COLONOSCOPY SCREENING] Future Scheduled 2022-05-06 HEPATITIS B VACCINES Met [facility] Test 14:03:13 (1 of 3 - Risk 3-dose series) [code = HEPATITIS B VACCINES (1 of 3 - Risk 3-dose series)] Future Scheduled 2022-05-06 COVID-19 VACCINE (3 - [facility] Test 14:03:13 Booster for Pfizer series) [code = COVID-19 VACCINE (3 - Booster for Pfizer series)] Future Scheduled 2022-05-06 65+ PNEUMOCOCCAL [facility] Test 14:03:13 VACCINE (4 - PPSV23 if available, else PCV20) [code = 65+ PNEUMOCOCCAL VACCINE (4 - PPSV23 if available, else PCV20)] Future Scheduled 2022-05-06 INFLUENZA VACCINE [facility] Test 14:03:13 [code = INFLUENZA VACCINE] Future Scheduled 2022-04-30 SHINGLES VACCINES (1 Met [facility] Test 01:07:32 of 2) [code = SHINGLES VACCINES (1 of 2)] Future Scheduled 2022-04-30 BREAST CANCER [facility] Test 01:07:32 SCREENING [code = BREAST CANCER SCREENING] Future Scheduled 2022-04-30 [facility] [facility] Test 01:07:32 [code = COLONOSCOPY SCREENING] Future Scheduled 2022-04-30 HEPATITIS B VACCINES Met [facility] Test 01:07:32 (1 of 3 - Risk 3-dose series) [code = HEPATITIS B VACCINES (1 of 3 - Risk 3-dose series)] Future Scheduled 2022-04-30 COVID-19 VACCINE (3 - Me [facility] Test 01:07:32 Booster for Pfizer series) [code = COVID-19 VACCINE (3 - Booster for Pfizer series)] Future Scheduled 2022-04-30 65[facility] VACCINE (4 - PPSV23 if available, else PCV20) [code = 65+ PNEUMOCOCCAL VACCINE (4 - PPSV23 if available, else PCV20)] Future Scheduled 2022-04-30 INFLUENZA VACCINE Method [facility] Test 01:07:32 [code = INFLUENZA VACCINE] Future Scheduled 2022-04-30 SHINGLES VACCINES (1 Met [facility] Test 01:07:32 of 2) [code = SHINGLES VACCINES (1 of 2)] Future Scheduled 2022-04-30 BREAST CANCER [facility] Test 01:07:32 SCREENING [code = BREAST CANCER SCREENING] Future Scheduled 2022-04-30 COLONOSCOPY SCREENING [facility] Test 01:07:32 [code = COLONOSCOPY SCREENING] Future Scheduled 2022-04-30 HEPATITIS B VACCINES Met [facility] Test 01:07:32 (1 of 3 - Risk 3-dose series) [code = HEPATITIS B VACCINES (1 of 3 - Risk 3-dose series)] Future Scheduled 2022-04-30 COVID-19 VACCINE (3 - [facility] Test 01:07:32 Booster for Pfizer series) [code = COVID-19 VACCINE (3 - Booster for Pfizer series)] Future Scheduled 2022-04-30 65+ [facility] VACCINE (4 - PPSV23 if available, else PCV20) [code = 65+ PNEUMOCOCCAL VACCINE (4 - PPSV23 if available, else PCV20)] Future Scheduled 2022-04-30 INFLUENZA VACCINE Method [facility] Test 01:07:32 [code = INFLUENZA VACCINE] Future Scheduled 2022-04-30 SHINGLES VACCINES (1 Met [facility] Test 01:07:32 of 2) [code = SHINGLES VACCINES (1 of 2)] Future Scheduled 2022-04-30 BREAST CANCER [facility] Test 01:07:32 SCREENING [code = BREAST CANCER SCREENING] Future Scheduled 2022-04-30 COLONOSCOPY SCREENING [facility] Test 01:07:32 [code = COLONOSCOPY SCREENING] Future Scheduled 2022-04-30 HEPATITIS B VACCINES Met [facility] Test 01:07:32 (1 of 3 - Risk 3-dose series) [code = HEPATITIS B VACCINES (1 of 3 - Risk 3-dose series)] Future Scheduled 2022-04-30 COVID-19 VACCINE (3 - [facility] Test 01:07:32 Booster for Pfizer series) [code = COVID-19 VACCINE (3 - Booster for Pfizer series)] Future Scheduled 2022-04-30 65+ PNEUMOCOCCAL [facility] Test 01:07:32 VACCINE (4 - PPSV23 if available, else PCV20) [code = 65+ PNEUMOCOCCAL VACCINE (4 - PPSV23 if available, else PCV20)] Future Scheduled 2022-04-30 INFLUENZA VACCINE Method [facility] Test 01:07:32 [code = INFLUENZA VACCINE] Future Scheduled 2022-04-25 SHINGLES VACCINES (1 Met [facility] Test 01:45:02 of 2) [code = SHINGLES VACCINES (1 of 2)] Future Scheduled 2022-04-25 BREAST CANCER [facility] Test 01:45:02 SCREENING [code = BREAST CANCER SCREENING] Future Scheduled 2022-04-25 COLONOSCOPY SCREENING [facility] Test 01:45:02 [code = COLONOSCOPY SCREENING] Future Scheduled 2022-04-25 HEPATITIS B VACCINES Met [facility] Test 01:45:02 (1 of 3 - Risk 3-dose series) [code = HEPATITIS B VACCINES (1 of 3 - Risk 3-dose series)] Future Scheduled 2022-04-25 COVID-19 VACCINE (3 - [facility] Test 01:45:02 Booster for Pfizer series) [code = COVID-19 VACCINE (3 - Booster for Pfizer series)] Future Scheduled 2022-04-25 65+ [email or web address] Test 01:45:02 VACCINE (4 - PPSV23 if available, else PCV20) [code = 65+ PNEUMOCOCCAL VACCINE (4 - PPSV23 if available, else PCV20)] Future Scheduled 2022-04-25 INFLUENZA VACCINE Method [facility] Test 01:45:02 [code = INFLUENZA VACCINE] Future Scheduled 2022-03-25 SHINGLES VACCINES (1 Met [facility] Test 14:48:42 of 2) [code = SHINGLES VACCINES (1 of 2)] Future Scheduled 2022-03-25 BREAST CANCER [facility] Test 14:48:42 SCREENING [code = BREAST CANCER SCREENING] Future Scheduled 2022-03-25 COLONOSCOPY SCREENING [facility] Test 14:48:42 [code = COLONOSCOPY SCREENING] Future Scheduled 2022-03-25 HEPATITIS B VACCINES Met [facility] Test 14:48:42 (1 of 3 - Risk 3-dose series) [code = HEPATITIS B VACCINES (1 of 3 - Risk 3-dose series)] Future Scheduled 2022-03-25 COVID-19 VACCINE (3 - Me [facility] Test 14:48:42 Booster for Pfizer series) [code = COVID-19 VACCINE (3 - Booster for Pfizer series)] Future Scheduled 2022-03-25 65+ [email or web address] Test 14:48:42 VACCINE (4 - PPSV23 if available, else PCV20) [code = 65+ PNEUMOCOCCAL VACCINE (4 - PPSV23 if available, else PCV20)] Future Scheduled 2022-03-25 INFLUENZA VACCINE Method [facility] Test 14:48:42 [code = INFLUENZA VACCINE] Future Scheduled 2022-03-25 SHINGLES VACCINES (1 Met [facility] Test 14:48:42 of 2) [code = SHINGLES VACCINES (1 of 2)] Future Scheduled 2022-03-25 BREAST CANCER [facility] Test 14:48:42 SCREENING [code = BREAST CANCER SCREENING] Future Scheduled 2022-03-25 COLONOSCOPY SCREENING [facility] Test 14:48:42 [code = COLONOSCOPY SCREENING] Future Scheduled 2022-03-25 HEPATITIS B VACCINES Met [facility] Test 14:48:42 (1 of 3 - Risk 3-dose series) [code = HEPATITIS B VACCINES (1 of 3 - Risk 3-dose series)] Future Scheduled 2022-03-25 COVID-19 VACCINE (3 - Me [facility] Test 14:48:42 Booster for Pfizer series) [code = COVID-19 VACCINE (3 - Booster for Pfizer series)] Future Scheduled 2022-03-25 65[facility] 14:48:[facility] VACCINE (4 - PPSV23 if available, else PCV20) [code = 65+ PNEUMOCOCCAL VACCINE (4 - PPSV23 if available, else PCV20)] Future Scheduled 2022-03-25 INFLUENZA VACCINE Method [facility] Test 14:48:42 [code = INFLUENZA VACCINE] Future Scheduled 2022-03-25 SHINGLES VACCINES (1 Met [facility] Test 14:48:42 of 2) [code = SHINGLES VACCINES (1 of 2)] Future Scheduled 2022-03-25 BREAST CANCER [facility] Test 14:48:42 SCREENING [code = BREAST CANCER SCREENING] Future Scheduled 2022-03-25 COLONOSCOPY SCREENING [facility] Test 14:48:42 [code = COLONOSCOPY SCREENING] Future Scheduled 2022-03-25 HEPATITIS B VACCINES Met [facility] Test 14:48:42 (1 of 3 - Risk 3-dose series) [code = HEPATITIS B VACCINES (1 of 3 - Risk 3-dose series)] Future Scheduled 2022-03-25 COVID-19 VACCINE (3 - [facility] Test 14:48:42 Booster for Pfizer series) [code = COVID-19 VACCINE (3 - Booster for Pfizer series)] Future Scheduled 2022-03-25 65+ [facility] 14:48:[facility] VACCINE (4 - PPSV23 if available, else PCV20) [code = 65+ PNEUMOCOCCAL VACCINE (4 - PPSV23 if available, else PCV20)] Future Scheduled 2022-03-25 INFLUENZA VACCINE Method [facility] Test 14:48:42 [code = INFLUENZA VACCINE] Future Scheduled 2022-03-25 SHINGLES VACCINES (1 Met [facility] Test 14:48:42 of 2) [code = SHINGLES VACCINES (1 of 2)] Future Scheduled 2022-03-25 BREAST CANCER [facility] Test 14:48:42 SCREENING [code = BREAST CANCER SCREENING] Future Scheduled 2022-03-25 COLONOSCOPY SCREENING [facility] Test 14:48:42 [code = COLONOSCOPY SCREENING] Future Scheduled 2022-03-25 HEPATITIS B VACCINES Met [facility] Test 14:48:42 (1 of 3 - Risk 3-dose series) [code = HEPATITIS B VACCINES (1 of 3 - Risk 3-dose series)] Future Scheduled 2022-03-25 COVID-19 VACCINE (3 - Me [facility] Test 14:48:42 Booster for Pfizer series) [code = COVID-19 VACCINE (3 - Booster for Pfizer series)] Future Scheduled 2022-03-25 65+ [email or web address] Test 14:48:42 VACCINE (4 - PPSV23 if available, else PCV20) [code = 65+ PNEUMOCOCCAL VACCINE (4 - PPSV23 if available, else PCV20)] Future Scheduled 2022-03-25 INFLUENZA VACCINE Method [facility] Test 14:48:42 [code = INFLUENZA VACCINE] Future Scheduled 2022-03-25 SHINGLES VACCINES (1 Met [facility] Test 14:48:42 of 2) [code = SHINGLES VACCINES (1 of 2)] Future Scheduled 2022-03-25 BREAST CANCER [facility] Test 14:48:42 SCREENING [code = BREAST CANCER SCREENING] Future Scheduled 2022-03-25 COLONOSCOPY SCREENING Me [facility] Test 14:48:42 [code = COLONOSCOPY SCREENING] Future Scheduled 2022-03-25 HEPATITIS B VACCINES Met [facility] Test 14:48:42 (1 of 3 - Risk 3-dose series) [code = HEPATITIS B VACCINES (1 of 3 - Risk 3-dose series)] Future Scheduled 2022-03-25 COVID-19 VACCINE (3 - Me [facility] Test 14:48:42 Booster for Pfizer series) [code = COVID-19 VACCINE (3 - Booster for Pfizer series)] Future Scheduled 2022-03-25 65+ [email or web address] Test 14:48:42 VACCINE (4 - PPSV23 if available, else PCV20) [code = 65+ PNEUMOCOCCAL VACCINE (4 - PPSV23 if available, else PCV20)] Future Scheduled 2022-03-25 INFLUENZA VACCINE Method [facility] Test 14:48:42 [code = INFLUENZA VACCINE] Future Scheduled 2022-03-25 SHINGLES VACCINES (1 Met [facility] Test 14:48:42 of 2) [code = SHINGLES VACCINES (1 of 2)] Future Scheduled 2022-03-25 BREAST CANCER [facility] Test 14:48:42 SCREENING [code = BREAST CANCER SCREENING] Future Scheduled 2022-03-25 COLONOSCOPY SCREENING Me [facility] Test 14:48:42 [code = COLONOSCOPY SCREENING] Future Scheduled 2022-03-25 HEPATITIS B VACCINES Met [facility] Test 14:48:42 (1 of 3 - Risk 3-dose series) [code = HEPATITIS B VACCINES (1 of 3 - Risk 3-dose series)] Future Scheduled 2022-03-25 COVID-19 VACCINE (3 - Me [facility] Test 14:48:42 Booster for Pfizer series) [code = COVID-19 VACCINE (3 - Booster for Pfizer series)] Future Scheduled 2022-03-25 65+ [email or web address] Test 14:48:42 VACCINE (4 - PPSV23 if available, else PCV20) [code = 65+ PNEUMOCOCCAL VACCINE (4 - PPSV23 if available, else PCV20)] Future Scheduled 2022-03-25 INFLUENZA VACCINE Method [facility] Test 14:48:42 [code = INFLUENZA VACCINE] Future Scheduled 2022-03-25 SHINGLES VACCINES (1 Met [facility] Test 14:48:42 of 2) [code = SHINGLES VACCINES (1 of 2)] Future Scheduled 2022-03-25 BREAST CANCER [facility] Test 14:48:42 SCREENING [code = BREAST CANCER SCREENING] Future Scheduled 2022-03-25 COLONOSCOPY SCREENING [facility] Test 14:48:42 [code = COLONOSCOPY SCREENING] Future Scheduled 2022-03-25 HEPATITIS B VACCINES Met [facility] Test 14:48:42 (1 of 3 - Risk 3-dose series) [code = HEPATITIS B VACCINES (1 of 3 - Risk 3-dose series)] Future Scheduled 2022-03-25 COVID-19 VACCINE (3 - Me [facility] Test 14:48:42 Booster for Pfizer series) [code = COVID-19 VACCINE (3 - Booster for Pfizer series)] Future Scheduled 2022-03-25 65+ [email or web address] Test 14:48:42 VACCINE (4 - PPSV23 if available, else PCV20) [code = 65+ PNEUMOCOCCAL VACCINE (4 - PPSV23 if available, else PCV20)] Future Scheduled 2022-03-25 INFLUENZA VACCINE Method [facility] Test 14:48:42 [code = INFLUENZA VACCINE] Future Scheduled 2022-03-25 SHINGLES VACCINES (1 Met [facility] Test 14:48:42 of 2) [code = SHINGLES VACCINES (1 of 2)] Future Scheduled 2022-03-25 BREAST CANCER [facility] Test 14:48:42 SCREENING [code = BREAST CANCER SCREENING] Future Scheduled 2022-03-25 COLONOSCOPY SCREENING [facility] Test 14:48:42 [code = COLONOSCOPY SCREENING] Future Scheduled 2022-03-25 HEPATITIS B VACCINES Met [facility] Test 14:48:42 (1 of 3 - Risk 3-dose series) [code = HEPATITIS B VACCINES (1 of 3 - Risk 3-dose series)] Future Scheduled 2022-03-25 COVID-19 VACCINE (3 - Me [facility] Test 14:48:42 Booster for Pfizer series) [code = COVID-19 VACCINE (3 - Booster for Pfizer series)] Future Scheduled 2022-03-25 65+ [email or web address] Test 14:48:42 VACCINE (4 - PPSV23 if available, else PCV20) [code = 65+ PNEUMOCOCCAL VACCINE (4 - PPSV23 if available, else PCV20)] Future Scheduled 2022-03-25 INFLUENZA VACCINE Method [facility] Test 14:48:42 [code = INFLUENZA VACCINE] Future Scheduled 2022-03-25 SHINGLES VACCINES (1 Met [facility] Test 14:48:42 of 2) [code = SHINGLES VACCINES (1 of 2)] Future Scheduled 2022-03-25 BREAST CANCER [facility] Test 14:48:42 SCREENING [code = BREAST CANCER SCREENING] Future Scheduled 2022-03-25 COLONOSCOPY SCREENING [facility] Test 14:48:42 [code = COLONOSCOPY SCREENING] Future Scheduled 2022-03-25 HEPATITIS B VACCINES Met [facility] Test 14:48:42 (1 of 3 - Risk 3-dose series) [code = HEPATITIS B VACCINES (1 of 3 - Risk 3-dose series)] Future Scheduled 2022-03-25 COVID-19 VACCINE (3 - Me [facility] Test 14:48:42 Booster for [...] 2022-03-04 SHINGLES VACCINES (1 Met [facility] Test 14:03:57 of 2) [code = SHINGLES VACCINES (1 of 2)] Future Scheduled 2022-03-04 BREAST CANCER [facility] Test 14:03:57 SCREENING [code = BREAST CANCER SCREENING] Future Scheduled 2022-03-04 COLONOSCOPY SCREENING [facility] Test 14:03:57 [code = COLONOSCOPY SCREENING] Future Scheduled 2022-03-04 HEPATITIS B VACCINES Met [facility] Test 14:03:57 (1 of 3 - Risk 3-dose series) [code = HEPATITIS B VACCINES (1 of 3 - Risk 3-dose series)] Future Scheduled 2022-03-04 COVID-19 VACCINE (3 - [facility] Test 14:03:57 Booster for Pfizer series) [code = COVID-19 VACCINE (3 - Booster for Pfizer series)] Future Scheduled 2022-03-04 65+ PNEUMOCOCCAL [facility] Test 14:03:57 VACCINE (4 - PPSV23 if available, else PCV20) [code = 65+ PNEUMOCOCCAL VACCINE (4 - PPSV23 if available, else PCV20)] Future Scheduled 2022-03-04 INFLUENZA VACCINE Method [facility] Test 14:03:57 [code = INFLUENZA VACCINE] Future Scheduled 2022-03-04 SHINGLES VACCINES (1 Met [facility] Test 14:03:57 of 2) [code = SHINGLES VACCINES (1 of 2)] Future Scheduled 2022-03-04 BREAST CANCER [facility] Test 14:03:57 SCREENING [code = BREAST CANCER SCREENING] Future Scheduled 2022-03-04 COLONOSCOPY SCREENING [facility] Test 14:03:57 [code = COLONOSCOPY SCREENING] Future Scheduled 2022-03-04 HEPATITIS B VACCINES Met [facility] Test 14:03:57 (1 of 3 - Risk 3-dose series) [code = HEPATITIS B VACCINES (1 of 3 - Risk 3-dose series)] Future Scheduled 2022-03-04 COVID-19 VACCINE (3 - [facility] Test 14:03:57 Booster for Pfizer series) [code = COVID-19 VACCINE (3 - Booster for Pfizer series)] Future Scheduled 2022-03-04 65+ [email or web address] Test 14:03:57 VACCINE (4 - PPSV23 if available, else PCV20) [code = 65+ PNEUMOCOCCAL VACCINE (4 - PPSV23 if available, else PCV20)] Future Scheduled 2022-03-04 INFLUENZA VACCINE [facility] Test 14:03:57 [code = INFLUENZA VACCINE] Future Scheduled 2022-03-04 SHINGLES VACCINES (1 Met [facility] Test 14:03:57 of 2) [code = SHINGLES VACCINES (1 of 2)] Future Scheduled 2022-03-04 BREAST CANCER [facility] Test 14:03:57 SCREENING [code = BREAST CANCER SCREENING] Future Scheduled 2022-03-04 COLONOSCOPY SCREENING [facility] Test 14:03:57 [code = COLONOSCOPY SCREENING] Future Scheduled 2022-03-04 HEPATITIS B VACCINES Met [facility] Test 14:03:57 (1 of 3 - Risk 3-dose series) [code = HEPATITIS B VACCINES (1 of 3 - Risk 3-dose series)] Future Scheduled 2022-03-04 COVID-19 VACCINE (3 - [facility] Test 14:03:57 Booster for Pfizer series) [code = COVID-19 VACCINE (3 - Booster for Pfizer series)] Future Scheduled 2022-03-04 65+ [email or web address] Test 14:03:57 VACCINE (4 - PPSV23 if available, else PCV20) [code = 65+ PNEUMOCOCCAL VACCINE (4 - PPSV23 if available, else PCV20)] Future Scheduled 2022-03-04 INFLUENZA VACCINE Method [facility] Test 14:03:57 [code = INFLUENZA VACCINE] Future Scheduled 2022-03-04 SHINGLES VACCINES (1 Met [facility] Test 14:03:57 of 2) [code = SHINGLES VACCINES (1 of 2)] Future Scheduled 2022-03-04 BREAST CANCER [facility] Test 14:03:57 SCREENING [code = BREAST CANCER SCREENING] Future Scheduled 2022-03-04 COLONOSCOPY SCREENING [facility] Test 14:03:57 [code = COLONOSCOPY SCREENING] Future Scheduled 2022-03-04 HEPATITIS B VACCINES Met [facility] Test 14:03:57 (1 of 3 - Risk 3-dose series) [code = HEPATITIS B VACCINES (1 of 3 - Risk 3-dose series)] Future Scheduled 2022-03-04 COVID-19 VACCINE (3 - [facility] Test 14:03:57 Booster for Pfizer series) [code = COVID-19 VACCINE (3 - Booster for Pfizer series)] Future Scheduled 2022-03-04 65+ PNEUMOCOCCAL [facility] Test 14:03:57 VACCINE (4 - PPSV23 if available, else PCV20) [code = 65+ PNEUMOCOCCAL VACCINE (4 - PPSV23 if available, else PCV20)] Future Scheduled 2022-03-04 INFLUENZA VACCINE Method [facility] Test 14:03:57 [code = INFLUENZA VACCINE] Future Scheduled 2022-02-11 SHINGLES VACCINES (1 Met [facility] Test 13:39:12 of 2) [code = SHINGLES VACCINES (1 of 2)] Future Scheduled 2022-02-11 BREAST CANCER [facility] Test 13:39:12 SCREENING [code = BREAST CANCER SCREENING] Future Scheduled 2022-02-11 COLONOSCOPY SCREENING [facility] Test 13:39:12 [code = COLONOSCOPY SCREENING] Future Scheduled 2022-02-11 HEPATITIS B VACCINES Met [facility] Test 13:39:12 (1 of 3 - Risk 3-dose series) [code = HEPATITIS B VACCINES (1 of 3 - Risk 3-dose series)] Future Scheduled 2022-02-11 COVID-19 VACCINE (3 - [facility] Test 13:39:12 Booster for Pfizer series) [code = COVID-19 VACCINE (3 - Booster for Pfizer series)] Future Scheduled 2022-02-11 65+ PNEUMOCOCCAL [facility] Test 13:39:12 VACCINE (4 - PPSV23 or PCV20) [code = 65+ PNEUMOCOCCAL VACCINE (4 - PPSV23 or PCV20)] Future Scheduled 2022-02-11 INFLUENZA VACCINE [facility] Test 13:39:12 [code = INFLUENZA VACCINE] Future Scheduled 2022-01-29 SHINGLES VACCINES (1 Met [facility] Test 14:07:20 of 2) [code = SHINGLES VACCINES (1 of 2)] Future Scheduled 2022-01-29 BREAST CANCER [facility] Test 14:07:20 SCREENING [code = BREAST CANCER SCREENING] Future Scheduled 2022-01-29 COLONOSCOPY SCREENING [facility] Test 14:07:20 [code = COLONOSCOPY SCREENING] Future Scheduled 2022-01-29 HEPATITIS B VACCINES Met [facility] Test 14:07:20 (1 of 3 - Risk 3-dose series) [code = HEPATITIS B VACCINES (1 of 3 - Risk 3-dose series)] Future Scheduled 2022-01-29 COVID-19 VACCINE (3 - Me [facility] Test 14:07:20 Booster for Pfizer series) [code = COVID-19 VACCINE (3 - Booster for Pfizer series)] Future Scheduled 2022-01-29 65+ PNEUMOCOCCAL [facility] Test 14:07:20 VACCINE (4 - PPSV23 or PCV20) [code = 65+ PNEUMOCOCCAL VACCINE (4 - PPSV23 or PCV20)] Future Scheduled 2022-01-29 INFLUENZA VACCINE Method [facility] Test 14:07:20 [code = INFLUENZA VACCINE] Future Scheduled 2022-01-29 SHINGLES VACCINES (1 Met [facility] Test 14:07:20 of 2) [code = SHINGLES VACCINES (1 of 2)] Future Scheduled 2022-01-29 BREAST CANCER [facility] Test 14:07:20 SCREENING [code = BREAST CANCER SCREENING] Future Scheduled 2022-01-29 COLONOSCOPY SCREENING [facility] Test 14:07:20 [code = COLONOSCOPY SCREENING] Future Scheduled 2022-01-29 HEPATITIS B VACCINES Met [facility] Test 14:07:20 (1 of 3 - Risk 3-dose series) [code = HEPATITIS B VACCINES (1 of 3 - Risk 3-dose series)] Future Scheduled 2022-01-29 COVID-19 VACCINE (3 - [facility] Test 14:07:20 Booster for Pfizer series) [code = COVID-19 VACCINE (3 - Booster for Pfizer series)] Future Scheduled 2022-01-29 65+ PNEUMOCOCCAL [facility] Test 14:07:20 VACCINE (4 - PPSV23 or PCV20) [code = 65+ PNEUMOCOCCAL VACCINE (4 - PPSV23 or PCV20)] Future Scheduled 2022-01-29 INFLUENZA VACCINE Method [facility] Test 14:07:20 [code = INFLUENZA VACCINE] Future Scheduled 2022-01-29 SHINGLES VACCINES (1 Met [facility] Test 14:07:20 of 2) [code = SHINGLES VACCINES (1 of 2)] Future Scheduled 2022-01-29 BREAST CANCER [facility] Test 14:07:20 SCREENING [code = BREAST CANCER SCREENING] Future Scheduled 2022-01-29 COLONOSCOPY SCREENING [facility] Test 14:07:20 [code = COLONOSCOPY SCREENING] Future Scheduled 2022-01-29 HEPATITIS B VACCINES Met [facility] Test 14:07:20 (1 of 3 - Risk 3-dose series) [code = HEPATITIS B VACCINES (1 of 3 - Risk 3-dose series)] Future Scheduled 2022-01-29 COVID-19 VACCINE (3 - Me [facility] Test 14:07:20 Booster for Pfizer series) [code = COVID-19 VACCINE (3 - Booster for Pfizer series)] Future Scheduled 2022-01-29 65+ PNEUMOCOCCAL [facility] Test 14:07:20 VACCINE (4 - PPSV23 or PCV20) [code = 65+ PNEUMOCOCCAL VACCINE (4 - PPSV23 or PCV20)] Future Scheduled 2022-01-29 INFLUENZA VACCINE Method [facility] Test 14:07:20 [code = INFLUENZA VACCINE] Future Scheduled 2022-01-29 SHINGLES VACCINES (1 Met [facility] Test 14:07:20 of 2) [code = SHINGLES VACCINES (1 of 2)] Future Scheduled 2022-01-29 BREAST CANCER [facility] Test 14:07:20 SCREENING [code = BREAST CANCER SCREENING] Future Scheduled 2022-01-29 COLONOSCOPY SCREENING [facility] Test 14:07:20 [code = COLONOSCOPY SCREENING] Future Scheduled 2022-01-29 HEPATITIS B VACCINES Met [facility] Test 14:07:20 (1 of 3 - Risk 3-dose series) [code = HEPATITIS B VACCINES (1 of 3 - Risk 3-dose series)] Future Scheduled 2022-01-29 COVID-19 VACCINE (3 - [facility] Test 14:07:20 Booster for Pfizer series) [code = COVID-19 VACCINE (3 - Booster for Pfizer series)] Future Scheduled 2022-01-29 65+ PNEUMOCOCCAL [facility] Test 14:07:20 VACCINE (4 - PPSV23 or PCV20) [code = 65+ PNEUMOCOCCAL VACCINE (4 - PPSV23 or PCV20)] Future Scheduled 2022-01-29 INFLUENZA VACCINE Method [facility] Test 14:07:20 [code = INFLUENZA VACCINE] Future Scheduled 2022-01-20 SHINGLES VACCINES (1 Met [facility] Test 06:12:34 of 2) [code = SHINGLES VACCINES (1 of 2)] Future Scheduled 2022-01-20 Screening for [facility] Test 06:12:34 malignant neoplasm of cervix (procedure) [code = 577672623] Future Scheduled 2022-01-20 BREAST CANCER [facility] Test 06:12:34 SCREENING [code = BREAST CANCER SCREENING] Future Scheduled 2022-01-20 COLONOSCOPY SCREENING [facility] Test 06:12:34 [code = COLONOSCOPY SCREENING] Future Scheduled 2022-01-20 HEPATITIS B VACCINES Met [facility] Test 06:12:34 (1 of 3 - Risk 3-dose series) [code = HEPATITIS B VACCINES (1 of 3 - Risk 3-dose series)] Future Scheduled 2022-01-20 COVID-19 VACCINE (3 - [facility] Test 06:12:34 Booster for Pfizer series) [code = COVID-19 VACCINE (3 - Booster for Pfizer series)] Future Scheduled 2022-01-20 65+ PNEUMOCOCCAL [facility] Test 06:12:34 VACCINE (4 - PPSV23 or PCV20) [code = 65+ PNEUMOCOCCAL VACCINE (4 - PPSV23 or PCV20)] Future Scheduled 2022-01-20 INFLUENZA VACCINE Method [facility] Test 06:12:34 [code = INFLUENZA VACCINE] Future Scheduled 2022-01-16 SHINGLES VACCINES (1 Met [facility] Test 12:09:25 of 2) [code = SHINGLES VACCINES (1 of 2)] Future Scheduled 2022-01-16 Screening for [facility] Test 12:09:25 malignant neoplasm of cervix (procedure) [code = 720211324] Future Scheduled 2022-01-16 BREAST CANCER [facility] Test 12:09:25 SCREENING [code = BREAST CANCER SCREENING] Future Scheduled 2022-01-16 COLONOSCOPY SCREENING [facility] Test 12:09:25 [code = COLONOSCOPY SCREENING] Future Scheduled 2022-01-16 HEPATITIS B VACCINES Met [facility] Test 12:09:25 (1 of 3 - Risk 3-dose series) [code = HEPATITIS B VACCINES (1 of 3 - Risk 3-dose series)] Future Scheduled 2022-01-16 COVID-19 VACCINE (3 - [facility] Test 12:09:25 Booster for Pfizer series) [code = COVID-19 VACCINE (3 - Booster for Pfizer series)] Future Scheduled 2022-01-16 65+ PNEUMOCOCCAL [facility] Test 12:09:25 VACCINE (4 - PPSV23 or PCV20) [code = 65+ PNEUMOCOCCAL VACCINE (4 - PPSV23 or PCV20)] Future Scheduled 2022-01-16 INFLUENZA VACCINE Method [facility] Test 12:09:25 [code = INFLUENZA VACCINE] Future Scheduled 2022-01-14 SHINGLES VACCINES (1 Met [facility] Test 04:11:46 of 2) [code = SHINGLES VACCINES (1 of 2)] Future Scheduled 2022-01-14 Screening for [facility] Test 04:11:46 malignant neoplasm of cervix (procedure) [code = 072587155] Future Scheduled 2022-01-14 BREAST CANCER [facility] Test 04:11:46 SCREENING [code = BREAST CANCER SCREENING] Future Scheduled 2022-01-14 COLONOSCOPY SCREENING [facility] Test 04:11:46 [code = COLONOSCOPY SCREENING] Future Scheduled 2022-01-14 HEPATITIS B VACCINES [facility] Test 04:11:46 (1 of 3 - Risk 3-dose series) [code = HEPATITIS B VACCINES (1 of 3 - Risk 3-dose series)] Future Scheduled 2022-01-14 COVID-19 VACCINE (3 - [facility] Test 04:11:46 Booster for Pfizer series) [code = COVID-19 VACCINE (3 - Booster for Pfizer series)] Future Scheduled 2022-01-14 65+ PNEUMOCOCCAL [facility] Test 04:11:46 VACCINE (4 - PPSV23 or PCV20) [code = 65+ PNEUMOCOCCAL VACCINE (4 - PPSV23 or PCV20)] Future Scheduled 2022-01-14 INFLUENZA VACCINE Method [facility] Test 04:11:46 [code = INFLUENZA VACCINE] Future Scheduled 2021-08-26 Screening for [facility] Test 13:02:23 malignant neoplasm of cervix (procedure) [code = 061224098] Future Scheduled 2021-08-26 BREAST CANCER [facility] Test 13:02:23 SCREENING [code = BREAST CANCER SCREENING] Future Scheduled 2021-08-26 COLONOSCOPY SCREENING [facility] Test 13:02:23 [code = COLONOSCOPY SCREENING] Future Scheduled 2021-08-26 Screening for [facility] Test 13:02:23 malignant neoplasm of lung (procedure) [code = 893154681] Future Scheduled 2021-08-26 SHINGLES VACCINES (#1) M [...] Facility Department ID 2022-02-18 Outpatient CHW W [id number] [place] 14:30:[address] [place] [address] 2021-07-14 Outpatient SADIKOVIC, [facility] [id number] [place] 09:33:51 [facility] 2021-06-02 Outpatient HEMATPOUR, [facility] [id number] [place] 13:58:[facility] 2021-04-28 Outpatient HEMATPOUR, [facility] [id number] [place] 11:21:22 [facility] 2021-03-20 Emergency [facility] [id number] Univers 16:07:40 [facility] [place] [facility] 2020-12-12 Outpatient HEMATPOUR, [facility] [id number] [place] 08:16:46 [facility] 2020-10-31 Outpatient HEMATPOUR, [facility] [id number] [place] 09:44:50 [facility] 2020-09-30 Outpatient HEMATPOUR, [facility] [id number] [place] 13:16:03 [facility] 2023-02-07 2023-02-07 Outpatient R EAST, [facility] [id number] Univers 09:00:00 09:00:00 SANTIAGO [facility] 2023-01-27 2023-01-27 Emergency X Bill COLES [facility] ERT [id number] Univers 10:47:00 18:59:00 [facility] 2023-01-27 2023-01-27 Emergency Bill Coles [facility] 1.2.840.114 [id number] Univers 10:47:00 18:59:00 Kiersten BULLOCK 350.1.13.10 i ty [place] [id number] [address] 2023-01-17 2023-01-17 [facility] 1.2.232.027 [id number] Univers 00:00:00 00:00:00 [facility] 350.1.13.10 i ty [place] [id number] [address] 2022-11-26 2022-11-26 Outpatient R [facility] [id number] Univers 08:30:00 08:30:00 [facility] 2022-11-15 2022-11-15 Outpatient R [facility] [id number] Univers 08:30:00 08:30:00 [facility] 2022-11-02 2022-11-02 Outpatient R [facility] [id number] Univers 08:30:00 08:30:00 [facility] 2022-10-27 2022-10-27 Telephone [facility] 1.2.840.114 [id number] Univers 00:00:00 00:00:00 [facility] 350.1.13.10 i ty [place] [id number] [address] 2022-10-06 2022-10-06 Outpatient R [facility] [id number] Univers 09:30:00 09:30:00 [facility] 2022-09-26 2022-09-26 [facility] 1.2.406.821 [id number] Univers 00:00:00 00:00:00 [facility] 350.1.13.10 i [place] [id number] [address] 2022-09-03 2022-09-03 Outpatient R [facility] [id number] Univers 11:00:00 11:00:00 SANTIAGO barbosa [facility] 2022-08-24 2022-08-24 Refill Ronald, 1.2.840.7 [id number] Univers 00:00:00 00:00:00 Santiago 39986.1.1 ity of 3.104.2.7 [place] .3.513861 Medica l .8 Branch 2022-05-20 2022-05-20 Telephone [facility], [facility] 1.2.840.114 [id number] Univers 00:00:00 00:00:00 [facility] 350.1.13.10 i [place] [id number] [address] 2022-05-10 2022-05-10 Emergency [facility] ERT [id number] Univers 10:30:00 16:31:[facility] 2022-05-10 2022-05-10 Emergency [place], TRAUMA 1.2.840.114 [id number] Univers 10:30:00 16:31:00 Home B [place] 350.1.13.10 [place] [id number] [facility] [address] [place] 2022-05-10 2022-05-10 Telephone [facility] 1.2.840.114 [id number] Univers 00:00:00 00:00:00 [facility] 350.1.13.10 i ty [place] [id number] [address] 2022-05-08 2022-05-08 Emergency X [facility] ERT [id number] Univers 16:18:00 18:42:00 THERESA [facility] 2022-05-08 2022-05-08 Emergency [facility] 1.2.840.114 [id number] Univers 16:18:00 18:42:00 Theresa BULLOCK 350.1.13.10 ity of [place] [id number] [address] 2022-05-07 2022-05-07 Telephone [facility] 1.2.840.114 99 [id number] Univers 00:00:00 00:00:00 [facility] 350.1.13.10 i ty [place] [id number] [address] 2022-05-06 2022-05-06 Emergency [facility] ERT [id number] Univers 14:13:00 18:19:00 ANETTE [facility] 2022-05-06 2022-05-06 Emergency [facility] 1.2.739.580 [id number] Univers 14:13:00 18:19:00 Anette BULLOCK 350.1.13.10 ity [facility] 4.2.7.2.686 [facility] [id number] [address] 2022-05-06 2022-05-06 Telephone [facility] 1.2.840.114 99 [id number] Univers 00:00:00 00:00:00 [facility] 350.1.13.10 i ty [place] [id number] [address] 2022-04-22 2022-04-22 Emergency X [facility] ERT [id number] Univers 13:55:00 17:00[facility]00 [facility] 2022-04-22 2022-04-22 [facility] 1.2.284.376 [id number] Univers 13:55:00 17:00:00 Paulette BULLOCK 350.1.13.10 i ty of [place] 4.2.7.2.686 [facility] [id number] [address] 2022-04-07 2022-04-07 Outpatient R ADRIAN, [facility] [id number] Univers 20:40:00 20:40:00 [facility] 2022-04-07 2022-04-07 Telephone Devin, 1.2.840.3 [id number] Univers 00:00:00 00:00:00 Robbi Hairston 16073.1.1 i ty of 3.104.2.7 [place] .3.150703 Medica l .8 Branch 2022-03-05 2022-03-05 It Project Coordinator [place] Cardenas 1.2.840.1 [id number] Univers 13:45:00 14:00:00 Visit [facility] 05761.1.1 ity of 3.104.2.7 [place] .3.707526 Medica l .8 [place] 2022-03-05 2022-03-05 Office Ronald [facility] 1.2.410.543 [id number] Univers 13:00:00 13:30:00 Visit Santiago [facility] 350..13.10 i ty of CLINICS 4.2.7.2.686 Yomialeshia isreal [id number] [facility] [address] [place] 2022-03-05 2022-03-05 Outpatient R [facility] [id number] Univers 13:00:00 13:00:00 [facility] 2022-02-26 2022-02-26 Outpatient R [facility] [id number] Univers 08:30:00 08:30:00 [facility] 2022-02-26 2022-02-26 Outpatient R [facility] [id number] Univers 08:30:00 08:30:00 [facility] 2022-02-17 2022-02-17 Transition Stevo, 1.2.840.7 [id number] Univers 00:00:00 00:00:00 of Care Isaias Arredondo 19565.1.1 it y of 3.104.2.7 [place] .3.356130 Medica l .8 [place] 2022-02-10 2022-02-16 Inpatient X FRANK NVCAMDEN STAHL [id number] Univers 22:59:00 19:27:00 TOMY barbosa [facility] 2022-02-10 2022-02-16 Hospital Reilly Means 1.2.840.1 [id number] Univers 22:59:00 19:27:00 Encounter Ofe Shields 93524.1.1 ity of [place] 3.[place].2.7 [place] .3.315712 Medica l .8 Branch 2022-02-11 2022-02-11 Telephone [place], 1.2.840.3 [id number] [id number] Univers 00:00:00 00:00:00 Santiago 28912.1.1 ity of 3.104.2.7 [place] .3.699443 Medica l .8 Branch 2022-02-10 2022-02-10 Travel 1.2.840.1 1.2.380.876 [id number] Univers 00:00:00 00:00:00 21851.1.1 350.1.13.10 ity of 3.104.2.7 4.[place].7.3.698 [place] .3.369232 084.8 Medica l .8 Branch 2022-01-30 2022-01-30 Telephone [place], 1.2.840.7 [id number] Univers 00:00:00 00:00:00 Santiago 50420.1.1 ity of 3.104.2.7 [place] .3.188531 Medica l .8 Branch 2022-01-06 2022-01-06 Orders Doctor FERMIN 1.2.840.114 [id number] Univers 00:00:00 00:00:00 Only Unassigned, JACKELINE 350.1.13.10 ity of [facility] 4.2.7.2.686 Yomi as [id number] [address] 2021-12-25 2021-12-25 Orders Doctor FERMIN 1.2.840.114 [id number] Univers 00:00:00 00:00:00 Only Unassigned, JACKELINE 350.1.13.10 ity of [place] [facility] 4.2.7.2.686 Yomi as [id number] [address] 2021-12-12 2021-12-13 Emergency X Bill COLES [facility] ERT [id number] Univers 23:53:00 01:52:00 ity of [facility] 2021-12-12 2021-12-13 Emergency Bill Coles [facility] 1.2.840.114 [id number] Univers 23:53:00 01:52:00 Kiersten BULLOCK 350.1.13.10 i ty [place] [id number] [facility] 084 Branch 2021-11-20 2021-11-20 It Project Coordinator [facility] 1.2.840.114 [id number] Univers 09:45:00 10:00:00 Visit [facility] 350.1.13.10 ity of [facility] 4.2.7.2.[place] [id number] [facility] 316 Branch 2021-11-20 2021-11-20 Office [facility] 1.2.028.076 [id number] Univers 08:30:00 09:00:00 Visit [facility] 350.1.13.10 i ty of [facility] 4.2.7.2.[place] [id number] [facility] [address] [place] 2021-11-20 2021-11-20 Outpatient R [facility] [id number] Univers 08:30:00 08:30:00 [facility] 2021-11-20 2021-11-20 Outpatient [facility] [id number] Univers 08:30:00 08:30:00 [facility] 2021-11-20 2021-11-20 Outpatient R [facility] [id number] Univers 08:30:00 08:30:00 [facility] 2021-11-20 2021-11-20 Outpatient R [facility] [id number] Univers 08:30:00 08:30:00 [facility] 2021-10-24 2021-10-24 Emergency X NIXONMD [facility] ERT [id number] Univers 16:27:00 22:26:00 [facility] 2021-10-24 2021-10-24 Emergency X WALKER [facility] ERT [id number] Univers 16:27:00 22:26:00 [facility] 2021-10-24 2021-10-24 Emergency Reilly Means [facility] 1.2.840. 114 [id number] Univers 16:27:00 22:26:00 Charity Mcallister [place] 350.1.13.10 ity of [facility] 4.2.7.2.686 [facility] [id number] [address] 2021-10-23 2021-10-24 Emergency X [facility] ERT [id number] Univers 20:22:00 02:57:00 KRISHNA ity [facility] 2021-10-23 2021-10-24 Emergency [facility] 1.2.527.369 [id number] Univers 20:22:00 02:57:00 Krishna Isreal [place] 350.1.13.10 ity of [place] 4.2.7.2.686 [facility] [id number] [address] 2021-09-07 2021-09-07 Outpatient R SELF, [facility] [id number] Univers 08:00:00 08:00:00 GADIEL raheemcharlie vogel [facility] 2021-09-07 2021-09-07 Outpatient R SELF, [facility] [id number] Univers 08:00:00 08:00:00 GADIEL barbosa o [facility] 2021-08-21 2021-08-21 Outpatient R EAST, [facility] [id number] Univers 10:45:00 10:45:00 SANTIAGO barbosa [facility] 2021-08-21 2021-08-21 It Project Coordinator [place] Cardenas 1.2.840.1 [id number] Univers 10:45:00 10:45:00 Visit [facility] 73590.1.1 ity of 3.104.2.7 [place] .3.515452 Medica l .8 [place] 2021-08-21 2021-08-21 Office Ronald, 1.2.840.8 [id number] Univers 08:30:00 09:00:00 Visit Santiago 87746.1.1 ity of 3.104.2.7 [place] .3.103909 Medica l .8 [place] 2021-08-21 2021-08-21 Office [facility], [facility] 1.2.411.460 [id number] Univers 08:30:00 09:00:00 Visit Santiago [facility] 350.1.13.10 i ty of CLINICS 4.2.7.2.686 Richi bach [id number] [facility] [address] [place] 2021-08-21 2021-08-21 Outpatient [facility] [id number] Univers 08:30:00 08:30:00 [facility] 2021-08-21 2021-08-21 Travel 1.2.840.1 1.2.621.801 [id number] Univers 00:00:00 00:00:00 06733.1.1 350.1.13.10 ity of 3.104.2.7 4.[place].7.3.698 [place] .3.390781 084.8 Medica l .8 [place] 2021-08-14 2021-08-14 Telephone East, 1.2.840.4 [id number] Univers 00:00:00 00:00:00 Santiago 56593.1.1 ity of 3.104.2.7 [place] .3.180057 Medica l .8 [place] 2021-08-13 2021-08-13 Telephone East, 1.2.840.6 [id number] Univers 00:00:00 00:00:00 Santiago 71310.1.1 ity of 3.104.2.7 [place] .3.995149 Medica l .8 [place] 2021-08-11 2021-08-11 Outpatient [facility] [id number] Univers 08:00:00 08:00:00 [facility] 2021-08-05 2021-08-05 Inpatient RAUL Lund, [facility] [id number] [facility] 05:24:00 05:24:00 Mike 31 [facility] 2021-07-20 2021-07-20 Outpatient [facility] [id number] Univers 10:00:00 10:00:00 [facility] 2021-07-14 2021-07-14 Office KIMBERLEY Lira 6400 1.2.840.114 13 [id number] [place] 08:45:00 09:34:[address] 350.1.13.58 Health 9.2.7.2.686 [id number] 1 2021-07-09 2021-07-09 Telephone [facility], [facility] 6400 1.2.840.114 [id number] [place] 00:00:00 00:00:[address] 350.1.13.58 Health 9.2.7.2.686 [id number] 1 2021-07-09 2021-07-09 Telephone [facility], [facility] 6400 1.2.840.114 [id number] [place] 00:00:00 00:00:[address] 350.1.13.58 Health 9.2.7.2.686 [id number] 1 2021-07-03 2021-07-03 Outpatient R EAST, [facility] [id number] Univers 08:00:00 08:00:00 SANTIAGO barbosa [facility] 2021-06-17 2021-06-17 Inpatient RAUL Lund, [facility] INTE.02 [id number] [facility] 10:56:00 14:36:[address] [place] [address] 2021-06-15 2021-06-15 Outpatient R SELF, [facility] [id number] Univers 10:15:00 11:07:21 GADIEL vogel [facility] 2021-06-15 2021-06-15 Outpatient R SELF, [facility] [id number] Univers 10:15:00 10:15:00 GADIEL vogel [facility] 2021-06-15 2021-06-15 Outpatient R SELF, [facility] [id number] Univers 10:15:00 10:15:00 [facility] 2021-06-15 2021-06-15 Orders Doctor 1.2.840.0 [id number] Univers 00:00:00 00:00:00 Only Unassigned, 09058.1.1 ity of [place] 3.104.2.7 [place] .3.901513 Medica l .8 [place] 2021-06-15 2021-06-15 Travel 1.2.840.1 1.2.992.008 [id number] Univers 00:00:00 00:00:00 07675.1.1 350.1.13.10 ity of 3.104.2.7 4.2.7.3.698 [place] .3.917606 084.8 Medica l .8 [place] 2021-06-11 2021-06-11 Refill [facility], [facility] 1.2.690.473 [id number] Univers 00:00:00 00:00:00 [facility] 350.1.13.10 i ty of [place] [id number] [address] 2021-06-11 2021-06-11 Refill [facility], 1.2.840.7 [id number] Univers 00:00:00 00:00:00 Santiago 30677.1.1 ity of 3.104.2.7 [place] .3.643042 Medica l .8 [place] 2021-06-05 2021-06-05 Outpatient R [facility] [id number] Univers 09:00:00 09:00:00 SANTIAGO ity of [facility] 2021-06-02 2021-06-02 Telephone [facility] 1.2.840.114 [id number] Univers 00:00:00 00:00:00 [facility] 350.1.13.10 i ty of [place] [id number] [address] 2021-06-02 2021-06-02 Telephone [facility], 1.2.840.7 [id number] Univers 00:00:00 00:00:00 Santiago 95330.1.1 ity of 3.104.2.7 [place] .3.497451 Medica l .8 [place] 2021-05-29 2021-05-29 Telephone East, 1.2.840.8 [id number] Univers 00:00:00 00:00:00 Santiago 28331.1.1 ity of 3.104.2.7 [place] .3.777229 Medica l .8 Branch 2021-05-29 2021-05-29 Telephone East, 1.2.840.8 [id number] [id number] Univers 00:00:00 00:00:00 Santiago 32545.1.1 ity of 3.104.2.7 [place] .3.683103 Medica l .8 Branch 2021-05-25 2021-05-25 Outpatient R RODO, [facility] [id number] Univers 08:00:00 08:00:00 GADIEL barbosa o [facility] 2021-04-29 2021-04-29 Outpatient R LALA, [facility] [id number] Univers 08:00:00 08:00:00 NIKOLAI barbosa [facility] 2021-04-28 2021-04-28 Telephone Jailyn, 1.2.840.9 [id number] Methodi 00:00:00 00:00:[address] 3.430.2.7 Hospit a .3.248368 l .8 2021-04-28 2021-04-28 Telephone [facility], UTP 6400 1.2.840.114 [id number] [place] 00:00:00 00:00:[address] 350.1.13.58 Health 9.2.7.2.686 [id number] 1 2021-03-31 2021-03-31 Orders Carol Ann, 1.2.840.1 [id number] 21 [id number] Methodi 00:00:00 00:00:00 Only Sarai Lieberman 43742.1.1 979 s t 3.430.2.7 Hospit a .3.965136 l .8 2021-03-30 2021-03-30 Outpatient R SELF, [facility] [id number] Univers 08:45:00 08:45:00 GADIEL rodas [facility] 2021-03-24 2021-03-24 Telephone Jailyn, 1.2.840.0 [id number] 21 [id number] Methodi 00:00:00 00:00:[address] 3.430.2.7 Hospit a .3.488813 l .8 2021-02-13 2021-02-13 Telephone Ronald, 1.2.840.6 [id number] Univers 00:00:00 00:00:00 Santiago 56737.1.1 ity of 3.104.2.7 [place] .3.976138 Medica l .8 [place] 2021-01-28 2021-01-28 Outpatient Marika REEVES, [facility] [id number] Univers 08:45:00 09:37:00 NIKOLAI ity of [facility] 2021-01-28 2021-01-28 Travel 1.2.840.1 1.2.408.839 [id number] Univers 00:00:00 00:00:00 80579.1.1 350.1.13.10 ity of 3.104.2.7 4[place].3.698 [place] .3.915435 084.8 Medica l .8 [place] 2021-01-19 2021-01-19 Telephone Pelletier, 1.2.840.1 [id number] Method 00:00:00 00:00:[address] 3.430.2.7 Hospit a .3.333643 l .8 2021-01-04 2021-01-04 Dmitry Bass, 1.2.840.4 [id number] 696 Univers 00:00:00 00:00:00 (Out) Dagoberto H 40308.1.1 ity of 3.104.2.7 [place] .3.035841 Medica l .8 [place] 2021-01-04 2021-01-04 Dmitry Bass, 1.2.840.5 [id number] 696 Univers 00:00:00 00:00:00 (Out) Dagoberto H 58477.1.1 ity of 3.104.2.7 [place] .3.949259 Medica l .8 [place] 2021-01-03 2021-01-03 Dmitry Bass 1.2.840.4 [id number] 790 Univers 00:00:00 00:00:00 (Out) Dagoberto H 67879.1.1 ity of 3.104.2.7 [place] .3.895400 Medica l .8 [place] 2021-01-03 2021-01-03 Letter Shelia, 1.2.840.5 [id number] 790 Univers 00:00:00 00:00:00 (Out) Dagoberto H 06879.1.1 ity of 3.104.2.7 [place] .3.821777 Medica l .8 [place] 2021-01-02 2021-01-02 Outpatient R [facility] [id number] Univers 13:40:00 13:40:00 ity of [facility] 2021-01-02 2021-01-02 Laboratory [place] 1.2.840.9 [id number] [id number] Univers 12:14:13 12:57:34 [place] [facility] [address] [place] 3.104.2.7 [place] .3.818838 Medica l .8 [place] 2021-01-02 2021-01-02 Laboratory [place] 1.2.840.9 [id number] [id number] Univers 12:14:13 12:57:34 Only Lab, [facility] [place] [address].1.1 ity of 3.104.2.7 [place] .3.531165 Medica l .8 [place] 2021-01-02 2021-01-02 Travel 1.2.840.1 1.2.247.119 7537 2306 Univers 00:00:00 00:00:00 78030.1.1 350.1.13.10 ity of 3.104.2.7 4[place]7.3.698 [place] .3.102978 084.8 Medica l .8 [place] 2021-01-02 2021-01-02 Letter Doctor 1.2.840.0 [id number] [id number] Univers 00:00:00 00:00:00 (Out) Unassigned, 16959.1.1 ity of [place] 3.104.2.7 [place] .3.871038 Medica l .8 Branch 2021-01-02 2021-01-02 Letter Doctor 1.2.840.6 [id number] 946 Univers 00:00:00 00:00:00 (Out) Unassigned, 76938.1.1 ity of [place] 3.104.2.7 [place] .3.244771 Medica l .8 Branch 2021-01-02 2021-01-02 Travel 1.2.840.1 1.2.581.551 3041 2306 Univers 00:00:00 00:00:00 61739.1.1 350.1.13.10 ity of 3.104.2.7 4.[place]7.3.698 [place] .3.487108 084.8 Medica l .8 [place] 2021-01-02 2021-01-02 Letter Doctor 1.2.840.5 [id number] 97617 948 Univers 00:00:00 00:00:00 (Out) Unassigned, 60911.1.1 ity of [place] 3.104.2.7 [place] .3.711974 Medica l .8 [place] 2021-01-02 2021-01-02 Letter Doctor 1.2.840.6 [id number] 46124 946 Univers 00:00:00 00:00:00 (Out) Unassigned, 77813.1.1 ity of [place] 3.104.2.7 [place] .3.767431 Medica l .8 [place] 2020-12-22 2020-12-22 Telephone Beltran, 1.2.840.3 [id number] 862 63098 Univers 00:00:00 00:00:00 Robbi Hairston 39909.1.1 i ty of 3.104.2.7 [place] .3.264689 Medica l .8 Branch 2020-12-22 2020-12-22 Telephone Beltran, 1.2.840.4 [id number] 862 16368 Univers 00:00:00 00:00:00 Devina Marika 81516.1.1 i ty of 3.104.2.7 [place] .3.812179 Medica l .8 Branch 2020-12-12 2020-12-12 Office Hematpour, UTP 6400 1.2.840.114 12 [id number] [place] 07:42:02 08:18:[address] 350.1.13.58 Health 9.2.7.2.686 [id number] 1 2020-12-12 2020-12-12 Office Hematpour, UTP 6400 1.2.840.114 12 [id number] 07:42:02 08:18:[address] 350.1.13.58 9.2.7.2.686 [id number] 1 2020-12-09 2020-12-09 Telephone Carol Ann, 1.2.840.1 [id number] Methodi 00:00:00 00:00:00 Sarai M. 04062.1.1 316 s t 3.430.2.7 Hospit a .3.811236 l .8 2020-12-08 2020-12-08 [facility], 1.2.840.1 [id number] 2100 939150 Methodi 12:35:54 23:59:00 Encounter Ray 41349.1.[address] 3.430.2.7 Hospit a .3.571586 l .8 2020-12-08 2020-12-08 [facility], 1.2.840.1 [id number] 19715 50812 Methodi 17:25:00 17:30:[address] 3.430.2.7 Hospit a .3.917231 l .8 2020-12-08 2020-12-08 Office [facility], 1.2.840.1 [id number] 77202 81448 Methodi 10:30:00 11:39:56 Visit Ray [address]9521.1.[address] 3.430.2.7 Hospit a .3.388646 l .8 2020-12-08 2020-12-08 Travel 1.2.840.1 1.2.998.570 4581 296852 Methodi 00:00:00 00:00:[address] 3.430.2.7 0.2.7.3.698 Ho spita .3.695514 084.8 l .8 2020-12-02 2020-12-02 It Project Coordinator [facility] 1.2.840.114 8 [id number] 10:20:06 10:36:19 Visit [facility] 350.1.13.10 CLINICS 4.2.7.2.686 [id number] 316 2020-12-02 2020-12-02 It Project Coordinator Santiago Cardenas 1.2.840.1 [id number] Univers 10:20:06 10:36:19 Visit [facility] 49938.1.1 ity of 3.104.2.7 [place] .3.188727 Medica l .8 Branch 2020-12-02 2020-12-02 It Project Coordinator Santiago Cardenas 1.2.840.1 [id number] [facility] 10:20:06 10:36:19 Visit [facility] 48926.1.1 ity of 3.104.2.7 [place] .3.061121 Medica l .8 [place] 2020-12-02 2020-12-02 Office Ronald 1.2.840.2 [id number] 528 Univers 08:31:37 09:01:37 Visit Santiago 67326.1.1 ity of 3.104.2.7 [place] .3.985176 Medica l .8 [place] 2020-12-02 2020-12-02 Outpatient R RONALD [facility] [id number] Univers 09:00:00 09:00:00 SANTIAGO ity of [facility] 2020-11-25 2020-11-25 Office Devin [facility] 1.2.840.114 [id number] 65 11:06:30 11:58:14 Visit Robbi Hairston [employer] 350.1.13.10 [facility] 4.2.7.2.686 MATERNAL [id number] & CHILD [address] [place] [address] 2020-11-25 2020-11-25 Office Devin 1.2.840.8 [id number] 17162 86 Univers 11:06:30 11:58:14 Visit Robbi Hairston 29327.1.1 i ty of 3.104.2.7 [place] .3.210573 Medica l .8 Branch 2020-11-25 2020-11-25 Office Devin, 1.2.840.9 [id number] 69737 865 Univers 11:06:30 11:58:14 Visit Robbi Hairston 85938.1.1 i ty of 3.104.2.7 [place] .3.810256 Medica l .8 [place] 2020-11-25 2020-11-25 Outpatient R [facility] [id number] 288 Univers 11:00:00 11:00:00 ity of [facility] 2020-11-25 2020-11-25 [facility] 1.2.558.467 5733 4592 00:00:00 00:00:00 [facility] 350.1.13.10 [facility] 4.2.7.2.686 [id number] 9 2020-11-25 2020-11-25 [facility] 1.2.995.509 4347 0821 00:00:00 00:00:00 Amarilisjolie Hairston [employer]ENTICE 350.1.13.10 [facility] 4.2.7.2.686 MATERNAL [phone] & CHILD [address] [place] [address] 2020-11-25 2020-11-25 Telephone Devin, 1.2.840.4 [id number] 855 44691 Univers 00:00:00 00:00:00 Devinaleshia Hairston 69657.1.1 i ty of 3.104.2.7 [place] .3.204171 Medica l .8 Branch 2020-11-25 2020-11-25 Refill Ronald, 1.2.840.3 [id number] 13411 592 Univers 00:00:00 00:00:00 Santiago 79850.1.1 ity of 3.104.2.7 [place] .3.367679 Medica l .8 Branch 2020-11-25 2020-11-25 Travel 1.2.840.1 1.2.534.017 3751 0247 Univers 00:00:00 00:00:00 76947.1.1 350.1.13.10 ity of 3.104.2.7 4[place].7.3.698 [place] .3.628266 084.8 Medica l .8 Branch 2020-11-25 2020-11-25 Orders Doctor 1.2.840.7 [id number] 064 Univers 00:00:00 00:00:00 Only Unassigned, 33719.1.1 ity of [place] 3.104.2.7 [place] .3.820408 Medica l .8 Branch 2020-11-25 2020-11-25 Telephone Devin, 1.2.840.0 [id number] 855 29454 Univers 00:00:00 00:00:00 Robbi R 15603.1.1 i ty of 3.104.2.7 [place] .3.918149 Medica l .8 Branch 2020-11-25 2020-11-25 Refill East, 1.2.840.4 [id number] 68810 592 Univers 00:00:00 00:00:00 Santiago 81113.1.1 ity of 3.104.2.7 [place] .3.158747 Medica l .8 Branch 2020-11-25 2020-11-25 Travel 1.2.840.1 1.2.719.252 2754 0247 Univers 00:00:00 00:00:00 52699.1.1 350.1.13.10 ity of 3.104.2.7 4.2.7.3.698 [place] .3.066785 084.8 Medica l .8 Branch 2020-11-25 2020-11-25 Orders Doctor 1.2.840.5 [id number] 14067 064 Univers 00:00:00 00:00:00 Only Unassigned, 61801.1.1 ity of [place] 3.104.2.7 [place] .3.591553 Medica l .8 Branch 2020-11-14 2020-11-14 Abstract Clark, 1.2.840.1 [id number] 69016 45693 Methodi 00:00:00 00:00:[address] 3.430.2.7 Hospit a .3.204500 l .8 2020-11-14 2020-11-14 Telephone Rodas, 1.2.840.1 [id number] 2100 493867 Methodi 00:00:00 00:00:[address] 3.430.2.7 Hospit a .3.507277 l .8 2020-11-12 2020-11-12 Outpatient [facility] [id number] Univers 08:30:00 08:30:00 SANTIAGO barbosa [facility] 2020-11-07 2020-11-07 Telephone Agustina Ortiz 6400 1.2.840.11 4 [id number] [place] 00:00:00 00:00:[address] 350.1.13.58 Health 9.2.7.2.686 [id number] 1 2020-11-07 2020-11-07 Telephone KIMBERLEY Ortiz 6400 1.2.840.114 124 993268 00:00:00 00:00:[address] 350.1.13.58 9.2.7.2.686 [id number] 1 2020-10-31 2020-10-31 Office Hematpour, UTP 6400 1.2.840.114 12 [id number] [place] 07:54:00 09:45:[address] 350.1.13.58 Health 9.2.7.2.686 [id number] 1 2020-10-30 2020-10-30 Abstract Rody Maguire UTP 6400 1.2.840.1 14 [id number] [place] 00:00:00 00:00:[address] 350.1.13.58 Health 9.2.7.2.686 [id number] 1 2020-10-29 2020-10-29 Reflamonte Cardenas 1.2.840.[id number] [place] [address] 00:00:00 00:00:00 Santiago 46528.1.1 ity of 3.104.2.7 [place] .3.388168 Medica l .8 Branch 2020-10-29 2020-10-29 Refill [place], 1.2.840.4 [id number] 39142 400 Univers 00:00:00 00:00:00 Santiago 49534.1.1 ity of 3.104.2.7 [place] .3.515868 Medica l .8 Branch 2020-10-27 2020-10-27 Telephone Jailyn, 1.2.840.0 [id number] 21 [id number] Methodi 00:00:00 00:00:[address] 3.430.2.7 Hospit a .3.639778 l .8 2020-10-24 2020-10-24 Telephone Clark, 1.2.840.1 [id number] 2100 062478 Methodi 00:00:00 00:00:[address] 3.430.2.7 Hospit a .3.085459 l .8 2020-10-22 2020-10-22 Outpatient R SELF, [facility] [id number] 868 Univers 13:00:00 13:00:00 GADIEL rodas [facility] 2020-10-22 2020-10-22 Travel 1.2.840.1 1.2.807.217 5411 3839 Univers 00:00:00 00:00:00 10336.1.1 350.1.13.10 ity of 3.104.2.7 4.2.7.3.698 [place] .3.473890 084.8 Medica l .8 Branch 2020-10-22 2020-10-22 Travel 1.2.840.1 1.2.967.821 1666 3839 Univers 00:00:00 00:00:00 27088.1.1 350.1.13.10 ity of 3.104.2.7 4.2.7.3.698 [place] .3.701680 084.8 Medica l .8 Branch 2020-10-13 2020-10-13 Outpatient R RODO, [facility] [id number] Univers 08:45:00 08:45:00 GADIEL rodas [facility] 2020-10-06 2020-10-12 Telemedici [facility], 1.2.840.1 [id number] Methodi 15:30:00 00:08:46 ne Ray 83886.1.[address] 3.430.2.7 Hospit a .3.022486 l .8 2020-09-30 2020-09-30 [facility], 1.2.840.8 [id number] Methodi 00:00:00 00:00:[address] 3.430.2.7 Hospit a .3.622639 l .8 2020-09-21 2020-09-21 Travel 1.2.840.1 1.2.286.224 3353 216162 Methodi 00:00:00 00:00:[address] 3.430.2.7 0.2.7.3.698 Ho spita .3.543270 084.8 l .8 2020-09-06 2020-09-06 [facility] 1.2.840.1 [id number] 45788 22928 Methodi 17:42:30 23:59:[address] 3.430.2.7 Hospit a .3.850458 l .8 2020-09-06 2020-09-06 [facility], 1.2.840.1 [id number] 2100 522623 Methodi 16:50:00 17:41:00 Encounter Ray [address]1949.1.[address] 3.430.2.7 Hospit a .3.944444 l .8 2020-09-05 2020-09-05 [facility], 1.2.840.1 [id number] 2099 463804 Methodi 09:17:00 19:45:00 Encounter Ray [address]68.1.[address] 3.430.2.7 Hospit a .3.754066 l .8 2020-09-05 2020-09-05 Surgery Chihara, 1.2.840.1 [id number] 33602 21727 Methodi 11:30:00 13:15:[address] 3.430.2.7 Hospit a .3.848030 l .8 2020-09-05 2020-09-05 Anesthesia Remigio, 1.2.840.1 [id number] 321 [id number] Methodi 11:27:00 12:20:00 Event Johnathanthi 83883.1.1 243 s t V. 3.430.2.7 Hospit a .3.165824 l .8 2020-09-05 2020-09-05 Travel 1.2.840.1 1.2.423.435 4969 154469 Methodi 00:00:00 00:00:[address] 3.430.2.7 0.2.7.3.698 Ho spita .3.515369 084.8 l .8 2020-09-04 2020-09-04 Telephone Meisenbach, 1.2.840.1 [id number] Methodi 00:00:00 00:00:00 Sarai M. 71287.1.1 762 s t 3.430.2.7 Hospit a .3.278483 l .8 2020-09-02 2020-09-02 Telephone Meisenbach, 1.2.840.9 [id number] Methodi 00:00:00 00:00:00 Sarai Corbin. 83735.1.1 344 s t 3.430.2.7 Hospit a .3.198042 l .8 2020-08-29 2020-08-30 Bedded [facility] [id number] [facility] 10:20:00 14:10:00 Outpatient r Marty 00 l [facility] 2020-08-29 2020-08-30 Outpatient HEMATPOUR, [facility] CAR 7500 [facility] 05:20:00 09:10:00 BEVERLY 2020-08-06 2020-08-06 Office [place], 1.2.840.9 [id number] Univers 08:03:23 09:17:49 Visit Santiago 95053.1.1 ity of 3.104.2.7 [place] .3.904311 Medica l .8 [place] 2020-08-06 2020-08-06 Outpatient R EAST, [facility] [id number] Univers 08:30:00 08:30:00 SANTIAGO ity of [facility] 2020-07-14 2020-07-14 Outpatient R SELF, [facility] [id number] Univers 09:30:00 09:30:00 GADIEL ity o f [facility] 2020-07-14 2020-07-14 Travel 1.2.840.1 1.2.719.406 5023 2575 Univers 00:00:00 00:00:00 85684.1.1 350.1.13.10 ity of 3.104.2.7 4.[place].7.3.698 [place] .3.315053 084.8 Medica l .8 [place] 2020-07-14 2020-07-14 Orders Doctor 1.2.840.7 [id number] Univers 00:00:00 00:00:00 Only Unassigned, 01550.1.1 ity of [place] 3.104.2.7 [place] .3.659135 Medica l .8 [place] 2020-06-16 2020-06-16 Outpatient R SELF, [facility] [id number] Univers 08:00:00 08:00:00 GADIEL ity o f [facility] 2020-06-06 2020-06-06 Telephone Ronald, 1.2.840.6 [id number] 809 [id number] Univers 00:00:00 00:00:00 Santiago 63290.1.1 ity of 3.104.2.7 [place] .3.173146 Medica l .8 [place] 2020-06-04 2020-06-04 It Project Coordinator Santiago Cardenas 1.2.840.1 [id number] Univers 09:31:58 09:40:12 Visit [facility] 47324.1.1 ity of 3.104.2.7 [place] .3.948887 Medica l .8 Branch 2020-06-04 2020-06-04 Office [facility] 1.2.510.788 9496 9729 Univers 08:13:41 09:28:25 Visit Santiago [facility] 350.1.13.10 i ty of CLINICS 4.2.7.2.686 Richi bach 293.7689372 [facility] 089 Branch 2020-06-04 2020-06-04 Outpatient R [facility] [id number] Univers 08:30:00 08:30:00 [place] ity of [facility] 2020-06-04 2020-06-04 Orders Doctor 1.2.840.5 [id number] 079 Univers 00:00:00 00:00:00 Only Unassigned, 54733.1.1 ity of [place] 3.104.2.7 [place] .3.924278 Medica l .8 Branch 2020-05-19 2020-05-19 Telephone East, 1.2.840.3 [id number] 804 [id number] Univers 00:00:00 00:00:00 Santiago 82751.1.1 ity of 3.104.2.7 [place] .3.533782 Medica l .8 Branch 2020-04-24 2020-04-24 Telephone East, 1.2.840.1 [id number] 799 84919 Univers 00:00:00 00:00:00 Santiago 39529.1.1 ity of 3.104.2.7 [place] .3.266784 Medica l .8 Branch 2020-04-14 2020-04-14 Outpatient R [facility] [id number] Univers 09:00:00 09:00:00 S[place]IAGO ity of [facility] 2020-04-14 2020-04-14 Telephone East, 1.2.840.9 [id number] 797 99210 Univers 00:00:00 00:00:00 Santiago 64237.1.1 ity of 3.104.2.7 [place] .3.952603 Medica l .8 Branch 2020-03-31 2020-03-31 Outpatient R [facility] [id number] Univers 08:30:00 08:30:00 SANTIAGO ity of [facility] 2020-03-03 2020-03-03 Outpatient R SELF, [facility] [id number] Univers 08:00:00 08:00:00 GADIEL barbosa o f [facility] 2020-03-03 2020-03-03 Outpatient R SELF, [facility] [id number] Univers 08:00:00 08:00:00 GADIEL barbosa o f [facility] 2020-03-03 2020-03-03 Travel 1.2.840.1 1.2.441.071 0846 5480 Univers 00:00:00 00:00:00 34871.1.1 350.1.13.10 ity of 3.104.2.7 4.2.7.3.698 [place] .3.212086 084.8 Medica l .8 [place] 2020-02-06 2020-02-06 Telephone East, 1.2.840.3 [id number] 781 [id number] Univers 00:00:00 00:00:00 Santiago 90663.1.1 ity of 3.104.2.7 [place] .3.475769 Medica l .8 [place] 2020-01-26 2020-01-26 Emergency Caridad, 1.2.840.8 [id number] 779 41253 Univers 10:03:00 13:05:00 Cynise 50511.1.1 ity of 3.104.2.7 [place] .3.625774 Medica l .8 [place] 2020-01-26 2020-01-26 Travel 1.2.840.1 1.2.732.762 0605 0120 Univers 00:00:00 00:00:00 04488.1.1 350.1.13.10 ity of 3.104.2.7 4.2.7.3.698 [place] .3.810732 084.8 Medica l .8 [place] 2020-01-25 2020-01-25 Outpatient R EAST, [facility] [id number] Univers 08:30:00 08:30:00 SANTIAGO ity [facility] 2020-01-25 2020-01-25 Telemedici [place], 1.2.840.5 [id number] Univers 07:36:49 08:06:49 ne Visit Santiago 42776.1.1 ity of 3.104.2.7 [place] .3.113635 Medica l .8 [place] 2020-01-16 2020-01-16 Outpatient R EAST, [facility] [id number] Univers 08:00:00 08:00:00 SANTIAGO ity [facility] 2020-01-16 2020-01-16 Telephone East, 1.2.840.6 [id number] Univers 00:00:00 00:00:00 Santiago 69099.1.1 ity of 3.104.2.7 [place] .3.633980 Medica l .8 [place] 2020-01-14 2020-01-14 Outpatient R SELF, [facility] [id number] Univers 08:00:00 08:00:00 GADIEL rodas [facility] 2019-12-31 2019-12-31 Outpatient R SELF, [facility] [id number] Univers 08:45:00 08:45:00 GADIEL rodas [facility] 2019-10-17 2019-10-17 Outpatient R EAST, [facility] [id number] Univers 08:30:00 08:30:00 SANTIAGO ity [facility] 2019-10-12 2019-10-12 Outpatient R EAST, [facility] [id number] Univers 13:00:00 13:00:00 SANTIAGO ity [facility] 2019-10-12 2019-10-12 Telemedici [facility], 1.2.840.2 [id number] Univers 07:38:30 08:08:30 ne Visit Santiago 51148.1.1 ity of 3.104.2.7 [place] .3.518568 Medica l .8 [place] 2019-10-08 2019-10-08 Outpatient R SELF, [facility] [id number] Univers 10:15:00 10:15:00 GADIEL rodas [facility] 2019-10-03 2019-10-03 Case Assman, 1.2.840.3 [id number] Univers 00:00:00 00:00:00 Management Michael Corbin 95087.1.1 i ty of 3.104.2.7 [place] .3.526602 Medica l .8 [place] 2019-09-27 2019-09-27 Telephone East, 1.2.840.0 [id number] 755 [id number] Univers 00:00:00 00:00:00 Santiago 67534.1.1 ity of 3.104.2.7 [place] .3.688455 Medica l .8 [place] 2019-09-04 2019-09-04 Refill East, 1.2.840.1 [id number] [id number] Univers 00:00:00 00:00:00 Santiago 16148.1.1 ity of 3.104.2.7 [place] .3.032893 Medica l .8 [place] 2019-07-24 2019-07-24 Outpatient R [facility] [id number] Univers 08:30:00 08:30:00 SANTIAGO ity [facility] 2019-07-17 2019-07-17 Outpatient R [facility] [id number] Univers 10:00:00 10:00:00 SANTIAGO ity [facility] 2019-06-15 2019-06-15 Telephone East, 1.2.840.3 [id number] [id number] Univers 00:00:00 00:00:00 Santiago 95677.1.1 ity of 3.104.2.7 [place] .3.159935 Medica l .8 [place] 2019-06-13 2019-06-13 Telephone Team, [facility] 1.2.840.7 [id number] Univers 00:00:00 00:00:00 Health 46023.1.1 ity of [place].104.2.7 [place] .3.093783 Medica l .8 [place] 2019-05-10 2019-05-10 Refill East, 1.2.840.3 [id number] 022 Univers 00:00:00 00:00:00 Santiago 64498.1.1 ity of 3.104.2.7 [place] .3.323962 Medica l .8 [place] 2019-05-09 2019-05-09 Refill East, 1.2.840.0 [id number] [id number] Univers 00:00:00 00:00:00 Santiago 24185.1.1 ity of 3.104.2.7 [place] .3.336366 Medica l .8 Branch 2019-04-30 2019-04-30 Outpatient R SELF, [facility] [id number] Univers 10:15:00 10:33:05 GADIEL itcharlie o f [facility] 2019-04-18 2019-04-18 It Project Coordinator Yohan Cardenasrey 1.2.840.1 [id number] Univers 10:00:39 10:44:31 Visit [facility] 90064.1.1 ity of 3.104.2.7 [place] .3.657085 Medica l .8 [place] 2019-04-18 2019-04-18 Outpatient R RONALD, [facility] [id number] Univers 10:00:00 10:44:31 SANTIAGO ity of [facility] 2019-04-18 2019-04-18 Office Ronald, 1.2.840.1 [id number] 005 Univers 08:27:44 09:53:27 Visit Santiago 89789.1.1 ity of 3.104.2.7 [place] .3.967721 Medica l .8 [place] 2019-04-18 2019-04-18 Orders Doctor 1.2.840.7 [id number] Univers 00:00:00 00:00:00 Only Unassigned, 28873.1.1 ity of [place] 3.104.2.7 [place] .3.615525 Medica l .8 [place] 2019-04-11 2019-04-11 Refill Ronald, 1.2.840.0 [id number] Univers 00:00:00 00:00:00 Santiago 82840.1.1 ity of 3.104.2.7 [place] .3.071248 Medica l .8 Branch 2019-04-09 2019-04-09 Refill Ronald, 1.2.840.2 [id number] Univers 00:00:00 00:00:00 Santiago 25053.1.1 ity of 3.104.2.7 [place] .3.311148 Medica l .8 [place] 2019-04-03 2019-04-03 Telephone Team, [facility] 1.2.840.3 [id number] Univers 00:00:00 00:00:00 Health 82415.1.1 ity of [place].104.2.7 [place] .3.127552 Medica l .8 [place] 2019-03-27 2019-03-27 Telephone Self, 1.2.840.9 [id number] 723 [id number] Univers 00:00:00 00:00:00 Gadiel 08564.1.1 ity of 3.104.2.7 [place] .3.376790 Medica l .8 [place] 2019-01-17 2019-01-17 Office East, 1.2.840.8 [id number] [facility] 07:37:21 10:32:51 Visit Santiago 74775.1.1 ity of 3.104.2.7 [place] .3.711672 Medica l .8 [place] 2019-01-04 2019-01-12 Office Eveline Hansen 1.2.840.2 [id number] [facility] 11:19:32 11:08:05 Visit Mariela 04942.1.1 ity of 3.104.2.7 [place] .3.786019 Medica l .8 [place] 2019-01-10 2019-01-10 Telephone Ephraimcharlie, 1.2.840.6 [id number] [facility] 00:00:00 00:00:00 Eladio Inman 32905.1.1 ity of 3.104.2.7 [place] .3.471552 Medica l .8 [place] 2018-12-18 2018-12-18 Office Geraldine, 1.2.840.5 [id number] [facility] 08:48:45 09:13:43 Visit Leyda 97688.1.1 it y of 3.104.2.7 [place] .3.861218 Medica l .8 [place] 2018-10-30 2018-10-30 Telephone East, 1.2.840.2 [id number] [facility] 00:00:00 00:00:00 [place] 44284.1.1 ity of 3.104.2.7 [place] .3.709484 Medica l .8 [place] 2018-10-23 2018-10-23 Orders Doctor 1.2.840.1 [id number] [facility] 00:00:00 00:00:00 Only Unassigned, 87962.1.1 ity of [place] 3.104.2.7 [place] .3.678425 Medica l .8 [place] 2018-10-23 2018-10-23 Nurse Selvin, 1.2.840.2 [id number] [facility] 00:00:00 00:00:00 Triage Stefanie 71092.1.1 ity of 3.104.2.7 [place] .3.572983 Med[facility] .8 [place] 2018-10-23 2018-10-23 Telephone Self, 1.2.840.0 [id number] [facility] 00:00:00 00:00:00 Gadiel 04254.1.1 ity of 3.104.2.7 [place] .3.131644 Medica l .8 [place] 2018-10-20 2018-10-20 Telephone Self, 1.2.840.3 [id number] [facility] 00:00:00 00:00:00 Gadiel 33741.1.1 ity of 3.104.2.7 [place] .3.325405 Med[facility] l .8 [place] Results Test Description Test Time Test Comments [...] L [Au tomated message] The system which Predictry nerated this result transmit arpit reference range: [...] g/dL 31.6-35.1 L RDW-SD (test code = 21243-4) 50.1 fL 39.0-49.9 H RDW-CV (test code = 788-0) 15.7 % 12.0-15.5 H PLT (test code = 777-3) 112 See_Comment L [Au tomated message] The system which Predictry nerated this result transmit arpit reference range: 166 - 35 8 10*3/?L. The reference range was not used to interpret th is result as normal/abnormal . MPV (test code = 78204-3) 9.7 fL 9.5-12.9 NRBC/100 WBC (test code = 0.0 See_Comment [ Automated message] The 4165871160) system which Predictry nerated this result transmit arpit reference range: 0.0 - 10 .0 /100 WBCs. The reference r abbey was not used to interpr et this result as normal/abnor mal. NRBC x10^3 (test code = See_Comment [Au tomated message] The 7194427869) system which Predictry nerated this result transmit arpit reference range: 10*3/?L. The reference range was not u sed to interpret this result as normal/abnormal . GRAN MAT (NEUT) % (test code 72.1 % = 770-8) IMM GRAN % (test code = 0.20 % [id number]) LYMPH % (test code = 736-9) 16.1 % MONO % (test code = 5905-5) 10.3 % EOS % (test code = 713-8) 1.1 % BASO % (test code = 706-2) 0.2 % GRAN MAT x10^3(ANC) (test 3.14 10*3/uL 1.88-7.09 code = 8278108470) IMM GRAN x10^3 (test code = 0.00-0.06 1720616199) LYMPH x10^3 (test code = 0.70 10*3/uL 1.32-3.29 L 731-0) MONO x10^3 (test code = 0.45 10*3/uL 0.33-0.92 742-7) EOS x10^3 (test code = 0.05 10*3/uL 0.03-0.39 711-2) BASO x10^3 (test code = 0.01-0.07 704-7) Lab Interpretation (test Abnormal code = 93959-4) [facility]42:55 Test Item Value Reference Range Interpretation Comments NA (test code = 137 mmol/L 135-145 8008202576) K (test code = 3.2 mmol/L 3.5-5.0 L 9068572413) CL (test code = 100 mmol/L 98-108 5580297851) CO2 TOTAL (test code = 23 mmol/L 23-31 5055617555) AGAP (test code = 2-16 5295594586) BUN (test code = 41 mg/dL 7-23 H 7766512695) GLUCOSE (test code = 98 mg/dL 70-110 7358661486) CREATININE (test code = 1.55 mg/dL 0.50-1.04 H 4956455849) TOTAL BILI (test code = 0.8 mg/dL 0.1-1.2 1564411771) CALCIUM (test code = 8.3 mg/dL 8.6-10.6 L 7083879363) T PROTEIN (test code = 6.9 g/dL 6.3-8.2 1268033370) ALBUMIN (test code = 3.9 g/dL 3.5-5.0 6070485303) ALK PHOS (test code = 89 U/L 34-122 3634984943) ALTv (test code = 101 U/L 5-35 H 1742-6) AST(SGOT) (test code = 203 U/L 13-40 H 8980581388) eGFR (test code = mL/min/1.73m2 1995131466) KYLE (test code = KYLE) Association of [...] tests). Lab Interpretation Abnormal (test code = 78772-9) [facility] WITH [id number] 22:33:52 Test Item Value Reference Range Interpretation Comments WBC (test code = See_Comment L [Automated 5384-2) message] The sy stem which generated this result transmitted reference range : 4.30 - 11.10 10*3/?L. The reference range was not used to interpret this result as normal/abnormal . RBC (test code = See_Comment [Automated 492-8) message] The sy stem which generated this [...] RDW-SD (test code = 46.3 fL 39.0-49.9 64486-2) RDW-CV (test code = 13.5 % 12.0-15.5 788-0) PLT (test code = See_Comment L [Automated 777-3) message] The sy stem which generated this result transmitted reference range : 166 - 358 10*3/ ?L. The reference r abbey was not used to interpret this result as normal/abnormal . MPV (test code = 9.5 fL 9.5-12.9 41770-4) NRBC/100 WBC (test See_Comment [Automat ed code = 5671879540) message] The system which generated this result transmitted reference range : 0.0 - 10.0 /100 WBCs. The refer ence range was not u sed to interpret th is result as normal/abnormal . NRBC x10^3 (test code See_Comment [Auto mated = 8002880360) message] The s ystem which generated this result transmitted reference range : 10*3/?L. The reference range was not used to interpret this result as normal/abnormal . GRAN MAT (NEUT) % 58.3 % (test code = 770-8) IMM GRAN % (test code 0.80 % = 3009060579) LYMPH % (test code = 28.1 % 736-9) MONO % (test code = 12.0 % 5905-5) EOS % (test code = 0.5 % 713-8) BASO % (test code = 0.3 % 706-2) GRAN MAT x10^3(ANC) 2.29 10*3/uL 1.88-7.09 (test code = 0628914859) IMM GRAN x10^3 (test 0.03 10*3/uL 0.00-0.06 code = 6278313444) LYMPH x10^3 (test code 1.10 10*3/uL 1.32-3.29 L = 731-0) MONO x10^3 (test code 0.47 10*3/uL 0.33-0.92 = 742-7) EOS x10^3 (test code = 0.03-0.39 L 711-2) BASO x10^3 (test code 0.01-0.07 = 704-7) Lab Interpretation Abnormal (test code = 83026-0) [facility] METABOLIC PANEL (NA, K, CL, CO2, GLUCOSE, BUN, CREATININE, CA)2022-04-22 21:43:42 Test Item Value Reference Range Interpretation Comments NA (test code = 142 mmol/L 135-145 2872400165) K (test code = 3.5 mmol/L 3.5-5.0 2476070440) CL (test code = 106 mmol/L 98-108 1086619622) CO2 TOTAL (test code = 26 mmol/L 23-31 2393226042) AGAP (test code = 2-16 8427523372) BUN (test code = 29 mg/dL 7-23 H 5477260869) GLUCOSE (test code = 84 mg/dL 70-110 8069344551) CREATININE (test code = 1.16 mg/dL 0.50-1.04 H 2821720202) CALCIUM (test code = 8.2 mg/dL 8.6-10.6 L 0358870433) eGFR (test code = mL/min/1.73m2 6895727644) KYLE (test code = KYLE) Association of [...] tests). Lab Interpretation Abnormal (test code = 43009-8) [facility] WITH [id number] 21:33:01 Test Item Value Reference Range Interpretation [...] (test code = 50.7 fL 39.0-49.9 H 45782-2) RDW-CV (test code = 14.6 % 12.0-15.5 788-0) PLT (test code = See_Comment L [Automated 777-3) message] The sy stem which generated this result transmitted reference range : 166 - 358 10*3/ ?L. The reference r abbey was not used to interpret this result as normal/abnormal . MPV (test code = 8.8 fL 9.5-12.9 L 09901-2) NRBC/100 WBC (test See_Comment [Automat ed code = 6367087177) message] The system which generated this result transmitted reference range : 0.0 - 10.0 /100 WBCs. The refer ence range was not u sed to interpret th is result as normal/abnormal . NRBC x10^3 (test code See_Comment [Auto mated = 5510240894) message] The s ystem which generated this result transmitted reference range : 10*3/?L. The reference range was not used to interpret this result as normal/abnormal . GRAN MAT (NEUT) % 70.9 % (test code = 770-8) IMM GRAN % (test code 0.50 % = 3252222501) LYMPH % (test code = 17.4 % 736-9) MONO % (test code = 9.0 % 5905-5) EOS % (test code = 1.7 % 713-8) BASO % (test code = 0.5 % 706-2) GRAN MAT x10^3(ANC) 4.60 10*3/uL 1.88-7.09 (test code = 8084469924) IMM GRAN x10^3 (test 0.03 10*3/uL 0.00-0.06 code = 5766639460) LYMPH x10^3 (test code 1.13 10*3/uL 1.32-3.29 L = 731-0) MONO x10^3 (test code 0.58 10*3/uL 0.33-0.92 = 742-7) EOS x10^3 (test code = 0.11 10*3/uL 0.03-0.39 711-2) BASO x10^3 (test code 0.03 10*3/uL 0.01-0.07 = 704-7) Lab Interpretation Abnormal (test code = 95472-9) [facility] [id number] 06:01:07 Test Item Value Reference Range Interpretation Comments Blood Culture-Aerobic No organisms No growth Previo us (test code = 37047-1) isolated prelim inary verified result was Culture [...] Culture-Anaerobic isolated preliminar y (test code = 90632-1) verifi ed result was Culture In Progress [...] CDT Lab Interpretation Normal (test code = 67811-7) [facility] CULTURE [id number] 06:01:07 Test Item Value Reference Range Interpretation Comments Blood Culture-Aerobic No organisms No growth Previo us (test code = 29864-4) isolated prelim inary verified result was Culture [...] Culture-Anaerobic isolated preliminar y (test code = 86362-7) verifi ed result was Culture In Progress [...] CDT Lab Interpretation Normal (test code = 56235-4) [facility] CULTURE [id number] 06:01:07 Test Item Value Reference Range Interpretation Comments Blood Culture-Aerobic No organisms No growth Previo us (test code = 19590-3) isolated prelim inary verified result was Culture [...] Culture-Anaerobic isolated preliminar y (test code = 75681-6) verifi ed result was Culture In Progress [...] CDT Lab Interpretation Normal (test code = 64276-8) [facility] [id number] 10:49:10 Test Item Value Reference Range Interpretation Comments NT-proBNP (test code 2660 pg/mL See_Comment H [Autom ated = 2924421956) message] The system which generated this result transmitted reference range : <=125. The reference range was not used to interpret this result as normal/abnormal . KYLE (test code = KYLE) Biotin has been reported to cause a negative bias, interpret results relative to patient's use of biotin. Lab Interpretation Abnormal (test code = 18847-6) [facility] [id number] 10:49:10 Test Item Value Reference Range Interpretation Comments NT-proBNP (test code 2660 pg/mL See_Comment H [Autom ated = 3091956539) message] The system which generated this result transmitted reference range : <=125. The reference range was not used to interpret this result as normal/abnormal . KYLE (test code = KYLE) Biotin has been reported to cause a negative bias, interpret results relative to patient's use of biotin. Lab Interpretation Abnormal (test code = 31739-7) [facility] (NA, K, CL, CO2, GLUCOSE, BUN, CREATININE, CA)2022-02-15 10:44:07 Test Item Value Reference Range Interpretation Comments NA (test code = 134 mmol/L 135-145 L 8233921889) K (test code = 3.2 mmol/L 3.5-5 L 4077581505) CL (test code = 98 mmol/L 98-108 8824203222) CO2 TOTAL (test code = 27 mmol/L 23-31 3703226811) AGAP (test code = 2-16 9764517281) BUN (test code = 19 mg/dL 7-23 4622696241) GLUCOSE (test code = 102 mg/dL 70-110 8348152900) CREATININE (test code = 0.95 mg/dL 0.5-1.04 5671908782) CALCIUM (test code = 8.5 mg/dL 8.6-10.6 L 0285660116) eGFR (test code = mL/min/1.73m2 8410363650) KLYE (test code = KYLE) Association of Glomerular [...] tests). Lab Interpretation Abnormal (test code = 73195-0) [facility] Test Item Value Reference Range Interpretation Comments MAGNESIUM (test code = 6312489350) 1.8 mg/dL 1.7-2.4 Lab Interpretation (test code = Normal 85452-9) [facility]07 Test Item Value Reference Range Interpretation Comments MAGNESIUM (test code = 2170759370) 1.8 mg/dL 1.7-2.4 Lab Interpretation (test code = Normal 16013-8) [facility] METABOLIC PANEL (NA, K, CL, CO2, GLUCOSE, BUN, CREATININE, CA)2022-02-15 10:44:07 Test Item Value Reference Range Interpretation Comments NA (test code = 134 mmol/L 135-145 L 1513660668) K (test code = 3.2 mmol/L 3.5-5.0 L 7741590702) CL (test code = 98 mmol/L 98-108 4801842673) CO2 TOTAL (test code = 27 mmol/L 23-31 4275427822) AGAP (test code = 2-16 2256077528) BUN (test code = 19 mg/dL 7-23 0839818558) GLUCOSE (test code = 102 mg/dL 70-110 9548483870) CREATININE (test code = 0.95 mg/dL 0.50-1.04 6443757994) CALCIUM (test code = 8.5 mg/dL 8.6-10.6 L 5963281780) eGFR (test code = mL/min/1.73m2 4494748163) KYLE (test code = KYLE) Association of [...] tests). Lab Interpretation Abnormal (test code = 19068-0) [facility] WITH [id number] 10:12:06 Test Item Value Reference Range Interpretation [...] RDW-SD (test code = 47.8 fL 39-49.9 31694-6) RDW-CV (test code = 15.2 % 12-15.5 788-0) PLT (test code = See_Comment L [Automated 777-3) message] The sy stem which generated this result transmitted reference range : 166 - 358 10*3/ ?L. The reference r abbey was not used to interpret this result as normal/abnormal . MPV (test code = 8.9 fL 9.5-12.9 L 68598-1) NRBC/100 WBC (test See_Comment [Automat ed code = 6136952299) message] The system which generated this result transmitted reference range : 0.0 - 10.0 /100 WBCs. The refer ence range was not u sed to interpret th is result as normal/abnormal . NRBC x10^3 (test code See_Comment [Auto mated = 8883991442) message] The s ystem which generated this result transmitted reference range : 10*3/?L. The reference range was not used to interpret this result as normal/abnormal . GRAN MAT (NEUT) % 65.9 % (test code = 770-8) IMM GRAN % (test code 0.30 % = 7803341971) LYMPH % (test code = 21.0 % 736-9) MONO % (test code = 10.1 % 5905-5) EOS % (test code = 2.4 % 713-8) BASO % (test code = 0.3 % 706-2) GRAN MAT x10^3(ANC) 2.49 10*3/uL 1.88-7.09 (test code = 9298365374) IMM GRAN x10^3 (test 0-0.06 code = 8234300341) LYMPH x10^3 (test code 0.79 10*3/uL 1.32-3.29 L = 731-0) MONO x10^3 (test code 0.38 10*3/uL 0.33-0.92 = 742-7) EOS x10^3 (test code = 0.09 10*3/uL 0.03-0.39 711-2) BASO x10^3 (test code 0.01-0.07 = 704-7) Lab Interpretation Abnormal (test code = 87507-6) [facility] WITH [id number] 10:12:06 Test Item Value Reference Range Interpretation [...] RDW-SD (test code = 47.8 fL 39.0-49.9 26601-5) RDW-CV (test code = 15.2 % 12.0-15.5 788-0) PLT (test code = See_Comment L [Automated 777-3) message] The sy stem which generated this result transmitted reference range : 166 - 358 10*3/ ?L. The reference r abbey was not used to interpret this result as normal/abnormal . MPV (test code = 8.9 fL 9.5-12.9 L 23044-2) NRBC/100 WBC (test See_Comment [Automat ed code = 6354723831) message] The system which generated this result transmitted reference range : 0.0 - 10.0 /100 WBCs. The refer ence range was not u sed to interpret th is result as normal/abnormal . NRBC x10^3 (test code See_Comment [Auto mated = 5690858691) message] The s ystem which generated this result transmitted reference range : 10*3/?L. The reference range was not used to interpret this result as normal/abnormal . GRAN MAT (NEUT) % 65.9 % (test code = 770-8) IMM GRAN % (test code 0.30 % = 8996948736) LYMPH % (test code = 21.0 % 736-9) MONO % (test code = 10.1 % 5905-5) EOS % (test code = 2.4 % 713-8) BASO % (test code = 0.3 % 706-2) GRAN MAT x10^3(ANC) 2.49 10*3/uL 1.88-7.09 (test code = 3643738021) IMM GRAN x10^3 (test 0.00-0.06 code = 0485615291) LYMPH x10^3 (test code 0.79 10*3/uL 1.32-3.29 L = 731-0) MONO x10^3 (test code 0.38 10*3/uL 0.33-0.92 = 742-7) EOS x10^3 (test code = 0.09 10*3/uL 0.03-0.39 711-2) BASO x10^3 (test code 0.01-0.07 = 704-7) Lab Interpretation Abnormal (test code = 72263-1) [facility] WITH [id number] 11:18:28 Test Item Value Reference Range Interpretation [...] RDW-SD (test code = 49.5 fL 39-49.9 85324-3) RDW-CV (test code = 15.5 % 12-15.5 788-0) PLT (test code = See_Comment L [Automated 777-3) message] The sy stem which generated this result transmitted reference range : 166 - 358 10*3/ ?L. The reference r abbey was not used to interpret this result as normal/abnormal . MPV (test code = 11.4 fL 9.5-12.9 46292-3) IPF % (test code = 8.7 % 1.3-7.7 H Platelet count 2130832615) measured by fluorescence method. NRBC/100 WBC (test See_Comment [Automat ed code = 9588250369) message] The system which generated this result transmitted reference range : 0.0 - 10.0 /100 WBCs. The refer ence range was not u sed to interpret th is result as normal/abnormal . NRBC x10^3 (test code See_Comment [Auto mated = 9490896049) message] The s ystem which generated this result transmitted reference range : 10*3/?L. The reference range was not used to interpret this result as normal/abnormal . GRAN MAT (NEUT) % 62.0 % (test code = 770-8) IMM GRAN % (test code 0.80 % = 8216217273) LYMPH % (test code = 22.2 % 736-9) MONO % (test code = 9.6 % 5905-5) EOS % (test code = 5.1 % 713-8) BASO % (test code = 0.3 % 706-2) GRAN MAT x10^3(ANC) 2.21 10*3/uL 1.88-7.09 (test code = 7424567089) IMM GRAN x10^3 (test 0.03 10*3/uL 0-0.06 code = 9679370992) LYMPH x10^3 (test code 0.79 10*3/uL 1.32-3.29 L = 731-0) MONO x10^3 (test code 0.34 10*3/uL 0.33-0.92 = 742-7) EOS x10^3 (test code = 0.18 10*3/uL 0.03-0.39 711-2) BASO x10^3 (test code 0.01-0.07 = 704-7) POLYCHROMASIA (test 2+ See_Comment [Automa arpit code = 89003-5) message] The system which generated this result [...] . Lab Interpretation Abnormal (test code = 97171-8) [facility] METABOLIC PANEL (NA, K, CL, CO2, GLUCOSE, BUN, CREATININE, CA)2022-02-13 10:39:07 Test Item Value Reference Range Interpretation Comments NA (test code = 136 mmol/L 135-145 0102869765) K (test code = 4.1 mmol/L 3.5-5 2882305990) CL (test code = 102 mmol/L 98-108 5021515045) CO2 TOTAL (test code = 27 mmol/L 23-31 4668706848) AGAP (test code = 2-16 9393029754) BUN (test code = 22 mg/dL 7-23 4381874044) GLUCOSE (test code = 94 mg/dL 70-110 8827187000) CREATININE (test code = 0.94 mg/dL 0.5-1.04 3125779755) CALCIUM (test code = 8.1 mg/dL 8.6-10.6 L 4429353001) eGFR (test code = mL/min/1.73m2 1220354819) KYLE (test code = KYLE) Association of [...] tests). Lab Interpretation Abnormal (test code = 12258-7) [facility] 01:50:10 Test Item Value Reference Range Interpretation Comments Height (test code = in 4651200256) Weight (test code = lbs 6836447618) Systolic BP (test code mmHg = 8628582710) Diastolic BP (test code mmHg = 1875862870) Heart Rate (test code = bpm 7386488266) BSA (test code = 1.85 m2 4505337206) IVS (test code = 1.22 cm 1433592565) Interventricular Septum 1.22 cm Diastolic Thickness by 2D (test code = 3397499) LVIDD (test code = 5.00 cm 0938660642) Left Ventricular End 117.9 mL Diastolic Volume by Teichholz Method (test code = 7014600) LVPWD (test code = 1.22 cm 7285987943) PW (test code = 1.22 cm 0.6-1.3 5427215536) EF(Teich) (test code = 74.60 % 8082832415) LVIDS (test code = 2.80 cm 5340111173) Left Ventricular End 29.9 mL Systolic Volume by Teichholz Method (test code = 6377868) FS (test code = 44 % 4135147259) EF - 2D (test code = 74.60 % 13025430) LVOT diameter (test 2.16 cm code = 5367800408) LVOT area (test code = 3.70 cm2 2993909696) Ao root diam (test code 3.40 cm = 4764115795) Aortic root (test code 3.4 cm = 8452755142) Ao root annulus (test 3.4 cm code = 2258622076) LA size (test code = 3.4 cm 9268443920) TR Peak Spencer (test code 330.0 cm/s = 4148771664) Triscuspid Valve mmHg Regurgitation Peak Gradient (test code = 6735356449) PV REGURGITATION PEAK mmHg GRADIENT (test code = 6116376232) PI dec slope (test code 137.20 cm/s2 = 3906750554) LAV(MOD-sp4) (test code 102.90 mL = 0709457323) MV Peak E Spencer (test 84.1 cm/s code = 3847653043) MV Peak A Spencer (test 40.1 cm/s code = 4850351787) E/A ratio (test code = ratio 9867953944) MV valve area p 1/2 3.70 cm2 method (test code = 0697925810) MV dec slope (test code 413.00 cm/s2 = 5744556786) MV P1/2t max spencer (test 83.70 cm/s code = 4331712620) MV Prop V (test code = 41.80 cm/s 9524997061) Tapse (test code = 1.83 cm 1469881267) LVOT stroke volume 96.90 cm3 (test code = 2038091947) LVOT peak spencer (test 125.5 cm/s code = 8884425990) LVOT mn grad (test code mmHg = 1781537116) AV LVOT peak gradient mmHg (test code = 9485757078) LVOT peak VTI (test 26.4 cm code = 7264361345) LV V1 mean (test code = 78.10 cm/s 6409482532) Aortic valve mean 103.7 cm/s velocity (test code = 4176086686) Ao peak spencer (test code 165.6 cm/s = 7137214870) Ao VTI (test code = 37.2 cm 1108087758) AV area by cont VTI 2.6 cm2 (test code = 3078195306) AV area peak spencer (test 2.8 cm2 code = 5524596674) Ao max PG (test code = 11.00 mm[Hg] 6013438002) AV peak gradient (test mmHg code = 4528629541) AV valve area (test 2.60 cm2 code = 5024357006) AV mean gradient (test mmHg code = 9382485292) LA Volume Index (BP) 55.2 mL/m2 (test code = 8169974232) LA volume (BP) (test 102.1 mL code = 1301287679) LAV(MOD-sp2) (test code 86.10 mL = 7391929133) A2C EF (test code = 61.20 % 4750126338) EF(sp2-el) (test code = 61.60 % 7006539461) SV(MOD-sp2) (test code 47.10 mL = 0010381805) LV Diastolic Volume 70.7 mL (BP) (test code = 5005196151) A4C EF (test code = 53.00 % 1940279211) EF(MOD-bp) (test code = 56.70 % 3812324116) EF(sp4-el) (test code = 53.90 % 6263230275) LV Systolic Volume (BP) 30.6 mL (test code = 4040594271) SV(MOD-bp) (test code = 40.10 mL 6748593512) SV(MOD-sp4) (test code 32.40 mL = 0004783459) SV(sp4-el) (test code = 33.10 mL 9120268610) EF (test code = 3606658582) Left Ventricular Stroke 40.1 mL Volume by 2-D Biplane-MOD (test code = 8143681) LV Diastolic Volume 38.2 mL/m2 Index (BP) (test code = 7955123617) LV Systolic Volume 16.5 mL/m2 Index (BP) (test code = 6561951204) Radiology Study observation (narrative) (test code = 08251-9) KYLE (test code = KYLE) ?Left?Ventricle: Left [...] ventricular wall motion is normal. [facility]EST[facility] [id number] 05:45:01 Test Item Value Reference Interpretation Comments Range TROPONIN I (test See_Comment [Automated code = 7597252068) message] The system which generated this result [...] biotin. Lab Interpretation Normal (test code = 55997-1) [facility] [id number] 05:41:40 Test Item Value Reference Range Interpretation Comments NT-proBNP (test code 4250 pg/mL See_Comment H [Autom ated = 3793314029) message] The system which generated this result transmitted reference range : <=125. The reference range was not used to interpret this result as normal/abnormal . KYLE (test code = KYLE) Biotin has been reported to cause a negative bias, interpret results relative to patient's use of biotin. Lab Interpretation Abnormal (test code = 29266-1) [facility] THRMPLAS [id number] 05:35:21 Test Item Value Reference Range Interpretation [...] seconds. Lab Interpretation Normal (test code = 92854-7) [facility]ACT[facility] THRMPLAS [id number] 05:35:21 Test Item Value Reference Range Interpretation [...] seconds. Lab Interpretation Normal (test code = 40409-7) [facility] CenterPROTHROMBIN TIME / [id number] 05:33:21 Test Item Value Reference Range Interpretation Comments PROTIME PATIENT (test See_Comment [Auto mated message] code = 5964-2) The system [employer] generated this result transmitted ref erence range: 12.0 - 1 4.7 Seconds. The re ference range was not u sed to interpret this result as normal/abnor mal. INR (test code = 6301-6) Nor mal INR <1.1; Warfarin Therap eutic range 2.0 to 3. 0 or 2.5 to 3.5, dep ending upon the indica tions. Lab Interpretation (test Normal code = 42941-7) [facility] CenterCOMP[facility] METABOLIC PANEL (46055)2022-02-11 05:33:21 Test Item Value Reference Range Interpretation Comments NA (test code = 137 mmol/L 135-145 9218284629) K (test code = 4.3 mmol/L 3.5-5 7853727284) CL (test code = 103 mmol/L 98-108 0025879994) CO2 TOTAL (test code = 25 mmol/L 23-31 7688121672) AGAP (test code = 2-16 2247389095) BUN (test code = 19 mg/dL 7-23 5273165350) GLUCOSE (test code = 120 mg/dL 70-110 H 0346345447) CREATININE (test code = 1.15 mg/dL 0.5-1.04 H 9099484065) TOTAL BILI (test code = 0.9 mg/dL 0.1-1.0 8063815950) CALCIUM (test code = 8.9 mg/dL 8.6-10.6 9228099392) T PROTEIN (test code = 6.6 g/dL 6.3-8.2 2771512044) ALBUMIN (test code = 4.0 g/dL 3.5-5 9839140576) ALK PHOS (test code = 73 U/L 34-122 4921112016) ALTv (test code = 18 U/L 5-35 1742-6) AST(SGOT) (test code = 31 U/L 13-40 2999404342) eGFR (test code = mL/min/1.73m2 5272870252) KYLE (test code = KYLE) Association of [...] tests). Lab Interpretation Abnormal (test code = 09944-1) [facility]. METABOLIC PANEL (49426)2022-02-11 05:33:21 Test Item Value Reference Range Interpretation Comments NA (test code = 137 mmol/L 135-145 6876678560) K (test code = 4.3 mmol/L 3.5-5.0 3768282097) CL (test code = 103 mmol/L 98-108 9813090232) CO2 TOTAL (test code = 25 mmol/L 23-31 5562460541) AGAP (test code = 2-16 5564365224) BUN (test code = 19 mg/dL 7-23 9910959273) GLUCOSE (test code = 120 mg/dL 70-110 H 4455155117) CREATININE (test code = 1.15 mg/dL 0.50-1.04 H 5466387026) TOTAL BILI (test code = 0.9 mg/dL 0.1-1.2 4438537605) CALCIUM (test code = 8.9 mg/dL 8.6-10.6 1445334866) T PROTEIN (test code = 6.6 g/dL 6.3-8.2 4068083871) ALBUMIN (test code = 4.0 g/dL 3.5-5.0 7246435052) ALK PHOS (test code = 73 U/L 34-122 1012836702) ALTv (test code = 18 U/L 5-35 2-6) AST(SGOT) (test code = 31 U/L 13-40 0332474232) eGFR (test code = mL/min/1.73m2 7033134992) KYLE (test code = KYLE) Association of [...] tests). Lab Interpretation Abnormal (test code = 52874-8) [facility] CenterPROTHROMBIN TIME / [id number] 05:33:21 Test Item Value Reference Range Interpretation [...] tions. Lab Interpretation (test Normal code = 19219-2) [facility] CenterCB WITH [id number] 05:14:37 Test Item Value Reference Range Interpretation Comments WBC (test code = See_Comment [Automated 6690-2) message] The sy stem which generated this result transmitted reference range : 4.30 - 11.10 10*3/?L. The reference range was not used to interpret this result as normal/abnormal . RBC (test code = See_Comment L [Automated 219-8) message] The sy stem which generated this [...] RDW-SD (test code = 47.9 fL 39-49.9 51939-8) RDW-CV (test code = 14.9 % 12-15.5 788-0) PLT (test code = See_Comment L [Automated 777-3) message] The sy stem which generated this result transmitted reference range : 166 - 358 10*3/ ?L. The reference r abbey was not used to interpret this result as normal/abnormal . MPV (test code = 9.1 fL 9.5-12.9 L 88899-5) NRBC/100 WBC (test See_Comment [Automat ed code = 0527629481) message] The system which generated this result transmitted reference range : 0.0 - 10.0 /100 WBCs. The refer ence range was not u sed to interpret th is result as normal/abnormal . NRBC x10^3 (test code See_Comment [Auto mated = 0500425534) message] The s ystem which generated this result transmitted reference range : 10*3/?L. The reference range was not used to interpret this result as normal/abnormal . GRAN MAT (NEUT) % 78.5 % (test code = 770-8) IMM GRAN % (test code 0.20 % = 3238772367) LYMPH % (test code = 11.6 % 736-9) MONO % (test code = 8.4 % 5905-5) EOS % (test code = 1.1 % 713-8) BASO % (test code = 0.2 % 706-2) GRAN MAT x10^3(ANC) 3.45 10*3/uL 1.88-7.09 (test code = [id number]) IMM GRAN x10^3 (test 0-0.06 code = [id number]) LYMPH x10^3 (test code 0.51 10*3/uL 1.32-3.29 L = 731-0) MONO x10^3 (test code 0.37 10*3/uL 0.33-0.92 = 742-7) EOS x10^3 (test code = 0.05 10*3/uL 0.03-0.39 711-2) BASO x10^3 (test code 0.01-0.07 = 704-7) Lab Interpretation Abnormal (test code = 67741-6) [facility] Coronavirus 2019 [id number] 18:08:00 Test Item Value Reference Range Interpretation [...] det ection of nucleic acids f rom [id number] v irus and diagnosis of SA RS-CoV-2 virusinfection. It is an Emergency Use Authorization ( EUA) testauthorized by the [place] FDA. BASIC METABOLIC [id number] 09:37:00 Test Item Value Reference Range Interpretation [...] = 9.0 mg/dL 8.0-10.5 N CA) PROTHROMBIN [id number] 09:32:00 Test Item Value Reference Range Interpretation [...] (to prevent recurrent infar ct). 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[facility] - XR CHEST 1 [id number] 00:00:00 [facility] DOB: 1955 Sex: F FAX: Carmenza Kelly DO [phone] Christine: St: ADM FAX: Mike Scales MD [phone] FAX: Bahman Chopra [phone] Name: LIO WATTS [facility] Tano Garcia : 1955 Age/S: 66/F [address] [place] [address] Unit #: [id number] Loc: [place] [address] Phys: Bahman Chopra [facility] Acct: [id number] Dis Date: Status: ADM IN PHONE #: [phone] Exam Date: 06/17/2021 1320 FAX #: [phone] Reason: WATCHMAN EXAMS: CPT CODE: [id number] XR CHEST 1 V 34364 PROCEDURE INFORMATION: Exam: XR Chest Exam date [...] Chopra Technologist: RT Taylor(R) Trnscrd Date/Time/By: 06/17/2021 (3022) : By: Susanna Orig Print D/T: S: 06/17/2021 (8724) PAGE 1 Signed ReportCOVID 19 Asymptomatic IH [id number] 12:29:00 Test Item Value Reference Range Interpretation [...] high or waivedcomplexit y tests. BASIC METABOLIC [id number] 11:37:00 Test Item Value Reference Range Interpretation [...] code = 9.0 mg/dL 8.0-10.5 N CA) DHWPAIDKLO8580-53-55 11:37:00 Test Item Value Reference Range Interpretation Comments PREALBUMIN (test code = PREALB) 24.3 mg/dL 16.0-40.0 N PROTHROMBIN [id number] 11:03:00 Test Item Value Reference Range Interpretation [...] (to prevent recurrent infar ct). CBC W/AUTO EQYL9906-74-69 10:59:00 Test Item Value Reference Range Interpretation [...] 0.0-0.1 N NRBC#) - XR CHEST 2 [id number] 00:00:00 [facility] : 1955 Sex: F FAX: RobinUrmilaBibiana DanielFrancisco Kristen [phone] Christine: St: PRE FAX: Mike Scales MD [phone] Name: LIO WATTS [facility] : 1955 Age/S: 66/F [address] [place] [address] Unit #: [id number] Loc: [place], [place] [address]Echl: Mike Lund MD Acct: [id number] Dis Date: Status: PRE [facility] PHONE #: [phone] Exam Date: 06/16/2021 1120 FAX #: [phone] Reason: PREOP EXAMS: CPT CODE: [id number] XR CHEST 2 V 69344 PROCEDURE INFORMATION: Exam: XR Chest Exam date [...] Rahman DO; Mike Lund MD Technologist: RT Andree(Marika) Trnscrd Date/Time/By: 06/16/2021 (113) : By: [email or web address] Orig Print D/T: S: 06/16/2021 (4291) PAGE 1 Signed ReportGastrointestinal [id number] 04:35:05 Test Item Value Reference Interpretation Comments [...] Rotavirus PCR (test Not Detected code = 7441589) Salmonella PCR (test Not Detected code = [...] = 7124) [facility] fboicpz5250-95-53 19:30:47 Test Item Value Reference Range Interpretation Comments Case number (test [id number] code = 1457946) Surgical pathology See link below for PDF report (test code = Lab Report 2255) Result status (test This is Supplemental code = 3895676) Report for [id number] [facility]2021-04-09 16:31:00 Test Item Value Reference Range Interpretation Comments POC Activated Clotting Time (test code 153 s = POC Activated Clotting Time) [facility]JydqjxnOCJCYCKTUS5016-48-15 16:31:00 Test Item Value Reference Range Interpretation Comments POC Activated Clotting Time (test code 153 s = POC Activated Clotting Time) [facility] HospitalUzkqbbzCDPTPIMYWV8604-28-97 16:31:00 Test Item Value Reference Range Interpretation Comments POC Activated Clotting Time (test code 153 s = POC Activated Clotting Time) [facility] HospitalUafjjgsHFHBMVYJLG3296-59-43 16:31:00 Test Item Value Reference Range Interpretation Comments POC Activated Clotting Time (test code 153 s = POC Activated Clotting Time) [facility] HospitalBkwbjztTYFXAGQUYO7409-92-09 16:31:00 Test Item Value Reference Range Interpretation Comments POC Activated Clotting Time (test code 153 s = POC Activated Clotting Time) [facility] HospitalOgudzadXJAZCOFOFR1917-28-76 16:31:00 Test Item Value Reference Range Interpretation Comments POC Activated Clotting Time (test code 153 s = POC Activated Clotting Time) [facility] HospitalDhfdqxnMUEURJVBWM9925-86-42 16:31:00 Test Item Value Reference Range Interpretation Comments POC Activated Clotting Time (test code 153 s = POC Activated Clotting Time) [facility] HospitalHgptrwhCNYWKGZIBP1844-05-19 14:37:00 Test Item Value Reference Range Interpretation Comments POC Activated Clotting Time (test code 454 s = POC Activated Clotting Time) [facility] HospitalPrgvxvuKKZOYVKFYH5163-34-74 14:37:00 Test Item Value Reference Range Interpretation Comments POC Activated Clotting Time (test code 454 s = POC Activated Clotting Time) [facility] HospitalJuxbxgyALGQIRTWND2246-74-59 14:37:00 Test Item Value Reference Range Interpretation Comments POC Activated Clotting Time (test code 454 s = POC Activated Clotting Time) [facility] HospitalHouwslwAWORWMWSJL0302-94-94 14:37:00 Test Item Value Reference Range Interpretation Comments POC Activated Clotting Time (test code 454 s = POC Activated Clotting Time) [facility] HospitalCuajltkKUVICZCXQV3077-57-64 14:37:00 Test Item Value Reference Range Interpretation Comments POC Activated Clotting Time (test code 454 s = POC Activated Clotting Time) [facility] HospitalAqrwqyoKSBJLFMLFN2841-38-78 14:37:00 Test Item Value Reference Range Interpretation Comments POC Activated Clotting Time (test code 454 s = POC Activated Clotting Time) [facility] HospitalVefrqxlCHRDPKNFWP4008-23-67 14:37:00 Test Item Value Reference Range Interpretation Comments POC Activated Clotting Time (test code 454 s = POC Activated Clotting Time) [facility] HospitalHtfjfilZOUKRBVOBD4516-01-86 14:13:00 Test Item Value Reference Range Interpretation Comments POC Activated Clotting Time (test code 354 s = POC Activated Clotting Time) [facility] HospitalLlbbvkeTVYVYJWBUO0442-62-27 14:13:00 Test Item Value Reference Range Interpretation Comments POC Activated Clotting Time (test code 354 s = POC Activated Clotting Time) [facility] HospitalDgeitykVNQKGMCSGR1441-77-41 14:13:00 Test Item Value Reference Range Interpretation Comments POC Activated Clotting Time (test code 354 s = POC Activated Clotting Time) [facility] HospitalJmgvjlcPKMFLRUNEE6598-77-35 14:13:00 Test Item Value Reference Range Interpretation Comments POC Activated Clotting Time (test code 354 s = POC Activated Clotting Time) [facility] HospitalTjtmizgMHZNRRPPDL8622-85-09 14:13:00 Test Item Value Reference Range Interpretation Comments POC Activated Clotting Time (test code 354 s = POC Activated Clotting Time) [facility] HospitalFecxzlrNGRTNGJBLY2311-69-33 14:13:00 Test Item Value Reference Range Interpretation Comments POC Activated Clotting Time (test code 354 s = POC Activated Clotting Time) [facility] HospitalPofkxnrWDIACWISUX0049-22-37 14:13:00 Test Item Value Reference Range Interpretation Comments POC Activated Clotting Time (test code 354 s = POC Activated Clotting Time) [facility] WTMTXCH9178-61-56 10:37:00Negative (08/29/20 5:37 AM) [facility]2021-04-09 10:37:33263Pparjbze HermannCHEM PANEL 2020-08-29 10:37:0028[facility] HermannCHEM PYSWK3850-47-12 10:37:001.01[facility] HermannCHEM OKVFY7758-31-19 10:37:15734Zkqiwwkk HermannCHEM OYSLH6743-08-36 10:37:003.8[facility] HermannCHEM DANPS6855-87-58 10:37:49364Ppcyedyb HermannCHEM UTDIH4087-75-20 10:37:0028[facility] HermannCHEM ZJBXI2447-18-26 10:37:009.8 [facility] HermannCHEM LYOCM9203-02-73 10:37:0011.8[facility] HermannCHEM PANEL 2020-08-29 10:37:0059[facility] HermannCHEM WPFJW7253-49-86 10:37:002.9[facility] SfbdmstTKPEBFKZWL5058-50-41 10:37:006.8[facility] YntegwiYRJRHBTSKS7659-35-44 10:37:004.47[facility] YnrkaqbDZRYPAWZOO4321-39-81 10:37:0010.6[facility] XXNNGBVTPY9578-61-71 10:37:0034.0[facility] VxwyxvdDYGLXARIOA8244-44-96 10:37:00 76.1[facility] TkjnavvCWIXJSYQDI0546-18-80 10:37:00 Test Item Value Reference Range Interpretation Comments MCH (test code = MCH) 23.8 pg 27.0-31.0 [facility] KtxklyoAFYNSPLBIA9933-67-32 10:37:0031.3[facility] HermannHEMATOLOGY 2020-08-29 10:37:0018.2[facility] NzgmvsoWJMQLOBTQU1892-99-14 10:37:87408Zyfewgnd EodpxbnPHGDYYURBY3356-35-71 10:37:007.5[facility] ZjaujidTHODFIUHFL1108-79-71 10:37:00 Test Item Value Reference Range Interpretation Comments PT (test code = PT) 12.8 s 12.0-14.7 [facility] LomispbRJZRSDDASV0576-08-66 10:37:00 Test Item Value Reference Range Interpretation Comments INR (test code = INR) 0.97 1 0.85-1.17 [facility] GfzvqjwVMZIGRRMZV9703-21-40 10:37:00 Test Item Value Reference Range Interpretation Comments PTT (test code = PTT) 25.0 s 22.9-35.8 [facility] VmlliyvYICEQZXRPQ0793-50-92 10:37:0070.5[facility] HermannHEMATOLOGY 2020-08-29 10:37:0018.8[facility] IkegrcjBLTEWSKKEB5661-62-21 10:37:009.5[facility] MpvizgkCCUVAWRYNJ0566-84-98 10:37:000.9[facility] WnkjvbuJDMQRMXAUT2365-17-39 10:37:000.3[facility] RyxtkmeITXDRKGXTQ7697-73-85 10:37:004.8[facility] VBPRDBTMAQ5562-45-19 10:37:001.3[facility] RlbbhztNFIZLDRCNA1277-03-54 10:37:000.6 [facility] VazaotuVCZTDFSRHZ5123-80-13 10:37:000.1[facility] HermannHEMATOLOGY 2020-08-29 10:37:001+ *ABN*(08/29/20 5:37 AM)[facility] LwarbxiZBBJAYPZBS0749-90-57 10:37:00Not Detected (08/29/20 5:37 AM)[facility] HermannBLOOD BANK RESULTS 2020-08-29 10:37:00Negative (08/29/20 5:37 AM)[facility] HermannCHEM GNCNV8044-01-40 10:37:86215Xocejaqh HermannCHEM MBGAA8239-35-37 10:37:0028[facility] HermannCHEM XYLKZ0082-58-22 10:37:001.01[facility] HermannCHEM KYIAQ8743-85-47 10:37:81581 [facility] HermannCHEM JXOVG8506-01-79 10:37:003.8[facility] HermannCHEM PANEL 2020-08-29 10:37:29906Cmuniigf HermannCHEM DPZUN4931-11-94 10:37:0028[facility] HermannCHEM WIPUV7441-39-47 10:37:009.8[facility] HermannCHEM XBXQC3413-96-01 10:37:0011.8[facility] HermannCHEM DBWTL1916-38-17 10:37:0059[facility] HermannCHEM CXRWL8753-47-38 10:37:002.9[facility] DkvsyjcIOSRFBIGTA8864-39-79 10:37:006.8 [facility] IeghbnsZMAZHCATBD8346-45-08 10:37:004.47[facility] HermannHEMATOLOGY 2020-08-29 10:37:0010.6[facility] CzctbuqMIBQNMHPOS1603-90-18 10:37:0034.0[facility] YjwulsqHSZIAMCGAR7904-83-81 10:37:0076.1[facility] ZzieyguFBGVTMPUYF1439-09-91 10:37:00 Test Item Value Reference Range Interpretation Comments MCH (test code = MCH) 23.8 pg 27.0-31.0 [facility] UlfbdzwWHXIZYGDDQ7233-00-21 10:37:0031.3[facility] HermannHEMATOLOGY 2020-08-29 10:37:0018.2[facility] HltcyvzAONGKOPEOF8229-20-79 10:37:46333Nxwrfday AxfotgxVDZBLTOIDS3157-18-32 10:37:007.5[facility] PedhlfwHAOVWFGEOK4885-66-56 10:37:00 Test Item Value Reference Range Interpretation Comments PT (test code = PT) 12.8 s 12.0-14.7 [facility]ZdeoahzWSJNNXHIDD4232-74-14 10:37:00 Test Item Value Reference Range Interpretation Comments INR (test code = INR) 0.97 1 0.85-1.17 [facility] YvdmrkuHINCOWYRBN4299-62-71 10:37:00 Test Item Value Reference Range Interpretation Comments PTT (test code = PTT) 25.0 s 22.9-35.8 [facility] EviaxppNCFISVWZGM8926-10-41 10:37:0070.5[facility] HermannHEMATOLOGY 2020-08-29 10:37:0018.8[facility] PkucejwKUZTSMZYMI9161-15-57 10:37:009.5[facility] MpamqiwSOUCOAGPPD6066-47-38 10:37:000.9[facility] YibrhiwNLLOLYQHFA2125-33-58 10:37:000.3[facility] GbyhyvrYNSUYQWJNE6428-68-95 10:37:004.8[facility] JVTYFVWQPX1158-03-31 10:37:001.3[facility] GorlqfpWRYOCXVKWT6722-40-43 10:37:000.6 [facility] PyqvmlnBOQSEAGNTL6493-19-34 10:37:000.1[facility] HermannHEMATOLOGY 2020-08-29 10:37:001+ *ABN*(08/29/20 5:37 AM)[facility] DofgfatZHTFMSWBDV3638-54-24 10:37:00Not Detected (08/29/20 5:37 AM)[facility] HermannBLOOD BANK RESULTS 2020-08-29 10:37:00Negative (08/29/20 5:37 AM)[facility] HermannCHEM PPGHM6636-49-32 10:37:72952Mgxwcaof HermannCHEM RZIDX7055-32-16 10:37:0028[facility] HermannCHEM KHVWD2336-51-57 10:37:001.01[facility] HermannCHEM JJDXB5662-30-61 10:37:66282 [facility] HermannCHEM AUOTR9984-67-40 10:37:003.8[facility] HermannCHEM PANEL 2020-08-29 10:37:19480Yjjbstbw HermannCHEM HFBUW7918-64-97 10:37:0028[facility] HermannCHEM PQSYK9432-30-43 10:37:009.8[facility] HermannCHEM BCUIH4598-43-53 10:37:0011.8[facility] HermannCHEM VGDBN1984-75-99 10:37:0059[facility] HermannCHEM SRQNJ0878-65-60 10:37:002.9[facility] XwmdyzrYPXWFDWENV6448-23-35 10:37:006.8 [facility] VwcuyleFLLJLWWYPK6998-42-83 10:37:004.47[facility] HermannHEMATOLOGY 2020-08-29 10:37:0010.6[facility] VdbrpenPZATDJTJYY9528-81-08 10:37:0034.0[facility] XomijatUBNCEFOSRI3053-47-02 10:37:0076.1[facility] NyxohvaNJLFKKEIWO6829-03-09 10:37:00 Test Item Value Reference Range Interpretation Comments MCH (test code = MCH) 23.8 pg 27.0-31.0 [facility] ZjynazoRUVGAPPGEU2629-69-74 10:37:0031.3[facility] HermannHEMATOLOGY 2020-08-29 10:37:0018.2[facility] BtkmepmMVJINETAWK2334-47-92 10:37:84509Eocyaujs VjqpkxeJHMQZSUPMF1894-90-97 10:37:007.5[facility] YgmubyoGQECFUPYBG8033-94-03 10:37:00 Test Item Value Reference Range Interpretation Comments PT (test code = PT) 12.8 s 12.0-14.7 [facility] JbpydhbUWGFUNTZXA5732-96-45 10:37:00 Test Item Value Reference Range Interpretation Comments INR (test code = INR) 0.97 1 0.85-1.17 [facility] UmuzuoyERJFLCCUPH4944-30-76 10:37:00 Test Item Value Reference Range Interpretation Comments PTT (test code = PTT) 25.0 s 22.9-35.8 [facility] HlqpilsRPQWGWUKAJ3123-88-65 10:37:0070.5[facility] HermannHEMATOLOGY 2020-08-29 10:37:0018.8[facility] EkujuecOPWFCZFCTM9768-10-33 10:37:009.5[facility] HzzvwrlGNNMOJGRHR4408-30-75 10:37:000.9[facility] PjxpjslSPNJWPOWBI3147-93-09 10:37:000.3[facility] XkmfytzYTPAEBBGHI7039-52-64 10:37:004.8[facility] TUQJEVRFEM0471-14-92 10:37:001.3[facility] YyshfghUKDGHXIWQR4790-05-54 10:37:000.6 [facility] RccyetzMBJFDIJMGA7430-58-52 10:37:000.1[facility] HermannHEMATOLOGY 2020-08-29 10:37:001+ *ABN*(08/29/20 5:37 AM)[facility] SlizohcYYTALIQAKV0473-75-71 10:37:00Not Detected (08/29/20 5:37 AM)[facility] HermannBLOOD BANK RESULTS 2020-08-29 10:37:00Negative (08/29/20 5:37 AM)[facility] HermannCHEM JEREK7074-16-91 10:37:28188Rbyowvko HermannCHEM GCTTO9535-24-67 10:37:0028[facility] HermannCHEM VLIOU4772-94-24 10:37:001.01[facility] HermannCHEM KWMEI9868-49-14 10:37:06503 [facility] HermannCHEM XSKRA4843-15-10 10:37:003.8[facility] HermannCHEM PANEL 2020-08-29 10:37:05547Rlxmffvx HermannCHEM ZROKN4150-52-68 10:37:0028[facility] HermannCHEM JDPES2075-15-61 10:37:009.8[facility] HermannCHEM RJETA0391-20-22 10:37:0011.8[facility] HermannCHEM JYWUR6877-66-86 10:37:0059[facility] HermannCHEM VNVSV2315-63-40 10:37:002.9[facility] TvjnpspBPHVPRZLVW1446-17-53 10:37:006.8 [facility] FbecyxdMPEZGPGOPX1135-18-53 10:37:004.47[facility] HermannHEMATOLOGY 2020-08-29 10:37:0010.6[facility] LubzhzwLMSTBJMQFL8567-72-28 10:37:0034.0[facility] YzvmlonTKJQLXZCWZ9685-57-64 10:37:0076.1[facility] PvqlbvjMBPWTKKDIQ3388-30-32 10:37:00 Test Item Value Reference Range Interpretation Comments MCH (test code = MCH) 23.8 pg 27.0-31.0 [facility] MwxemltHRPZXAPAFF5848-15-79 10:37:0031.3[facility] HermannHEMATOLOGY 2020-08-29 10:37:0018.2[facility] WkmgyydNTRDRSLCPR8764-57-54 10:37:42896Pgabalkh XkjyqwxJPZPAVYTMW8670-10-65 10:37:007.5[facility] DgqajekPJOSWGQFAG0754-25-24 10:37:00 Test Item Value Reference Range Interpretation Comments PT (test code = PT) 12.8 s 12.0-14.7 [facility] FfjtgbnZRYRCTOEIQ3533-75-55 10:37:00 Test Item Value Reference Range Interpretation Comments INR (test code = INR) 0.97 1 0.85-1.17 [facility] EtisykrVQZVYZFTSC1080-86-02 10:37:00 Test Item Value Reference Range Interpretation Comments PTT (test code = PTT) 25.0 s 22.9-35.8 [facility] KmgksrvQWKRCFCHQS3343-08-54 10:37:0070.5[facility] HermannHEMATOLOGY 2020-08-29 10:37:0018.8[facility] RdzuibzARBDFARLCC1712-05-24 10:37:009.5[facility] LozygxjSFKEYCBDYC8856-45-51 10:37:000.9[facility] DtmkwfsAJYVCIRUVQ7628-12-29 10:37:000.3[facility] BjimtehUYQTYTBPBN1913-85-93 10:37:004.8[facility] DAOSJABXHZ0468-86-53 10:37:001.3[facility] SxmpvgdPNBZYRGMQC7366-45-53 10:37:000.6 [facility] OywfvhaTFTZJBKNJQ8542-92-62 10:37:000.1[facility] HermannHEMATOLOGY 2020-08-29 10:37:001+ *ABN*(08/29/20 5:37 AM)[facility] GadrtfbGUNNOBSTUW8829-95-82 10:37:00Not Detected (08/29/20 5:37 AM)[facility] HermannBLOOD BANK RESULTS 2020-08-29 10:37:00Negative (08/29/20 5:37 AM)[facility] HermannCHEM FNDDT8872-93-11 10:37:65330Wygyuxul HermannCHEM DIBBQ6499-99-51 10:37:0028[facility] HermannCHEM EXVHL0495-00-06 10:37:001.01[facility] HermannCHEM SLMJD8713-28-67 10:37:88948 [facility] HermannCHEM AHQZU9862-27-27 10:37:003.8[facility] HermannCHEM PANEL 2020-08-29 10:37:91332Qoedhzke HermannCHEM DDOVU2462-80-76 10:37:0028[facility] HermannCHEM XBLVH5189-81-55 10:37:009.8[facility] HermannCHEM MSFLZ6862-89-86 10:37:0011.8[facility] HermannCHEM WOGVS7564-61-86 10:37:0059[facility] HermannCHEM CAMVX3473-73-67 10:37:002.9[facility] RphzguyFKWMAFWJQU0157-99-27 10:37:006.8 [facility] LcmepksXZVFUAQSVU5126-37-70 10:37:004.47[facility] HermannHEMATOLOGY 2020-08-29 10:37:0010.6[facility] WsgovwvVDRFPHZVBD8549-55-13 10:37:0034.0[facility] EkesypkFKPGTVBVZN3625-96-88 10:37:0076.1[facility] MsxocprHTIWDNQQPY2435-86-50 10:37:00 Test Item Value Reference Range Interpretation Comments MCH (test code = MCH) 23.8 pg 27.0-31.0 [facility] LqbnwouJRFEIVQJIV8762-33-73 10:37:0031.3[facility] HermannHEMATOLOGY 2020-08-29 10:37:0018.2[facility] QakrxbvBYLPQIDOHY5806-85-98 10:37:96438Uelmqijs FwzpearBCAPJWCTGG6015-27-21 10:37:007.5[facility] ZsmuflfJRAFJUDXVY2555-07-69 10:37:00 Test Item Value Reference Range Interpretation Comments PT (test code = PT) 12.8 s 12.0-14.7 [facility] JhcoigkPCILUUDFIQ8811-50-93 10:37:00 Test Item Value Reference Range Interpretation Comments INR (test code = INR) 0.97 1 0.85-1.17 [facility] AhnkjroORGABXNOMM8715-94-96 10:37:00 Test Item Value Reference Range Interpretation Comments PTT (test code = PTT) 25.0 s 22.9-35.8 [facility] BwyuxwgWPUHINBZGH3114-16-37 10:37:0070.5[facility] HermannHEMATOLOGY 2020-08-29 10:37:0018.8[facility] JinpuxnWJZWNEYDWH9176-23-61 10:37:009.5[facility] EnfnsiqKASEFELPJQ1926-00-51 10:37:000.9[facility] RwovosvWZCBJPLCLB2383-67-42 10:37:000.3[facility] KrogjyoROECLKYPZA7709-12-23 10:37:004.8[facility] [place] YZYLBSCJRL2391-82-53 10:37:001.3[facility] MbzqvblFXPUPJHKXB0561-58-87 10:37:000.6 [facility] QvcngbcNUAEWUXNNR9553-50-75 10:37:000.1[facility] HermannHEMATOLOGY 2020-08-29 10:37:001+ *ABN*(08/29/20 5:37 AM)[facility] NmtlhctODILDWKSLT0874-95-27 10:37:00Not Detected (08/29/20 5:37 AM)[facility] HermannBLOOD BANK RESULTS 2020-08-29 10:37:00Negative (08/29/20 5:37 AM)[facility] HermannCHEM PCJOP5711-21-40 10:37:99686Ehstbwrq HermannCHEM YGIUY5183-75-38 10:37:0028[facility] HermannCHEM GYVLS4817-53-37 10:37:001.01[facility] HermannCHEM QMLYW9694-81-58 10:37:42349 [facility] HermannCHEM ZCKLU2678-32-13 10:37:003.8[facility] HermannCHEM PANEL 2020-08-29 10:37:04942Ngfukqdh HermannCHEM ANVFY9716-48-96 10:37:0028[facility] HermannCHEM ZETTE5457-30-76 10:37:009.8[facility] HermannCHEM RVEYR0915-30-32 10:37:0011.8[facility] HermannCHEM CDQJX7424-04-97 10:37:0059[facility] HermannCHEM LOCVI1462-89-02 10:37:002.9[facility] FxvvllgCUUPXKNXAV9769-04-99 10:37:006.8 [facility] SzbcmzoABMHQKNTFY4869-38-32 10:37:004.47[facility] HermannHEMATOLOGY 2020-08-29 10:37:0010.6[facility] PgjkdaaSKEMBCGOHJ3703-86-02 10:37:0034.0[facility] DyyogsgDHUSURFMWW4344-36-19 10:37:0076.1[facility] CjlazyrOWCHXRCWSE6638-80-57 10:37:00 Test Item Value Reference Range Interpretation Comments MCH (test code = MCH) 23.8 pg 27.0-31.0 [facility] OyffwdoWBDRFCATKL5044-90-10 10:37:0031.3[facility] HermannHEMATOLOGY 2020-08-29 10:37:0018.2[facility] BbgathyVUHAOTWHDS7061-15-47 10:37:26602Myqgqciu SywdsqdFGEEZULZTA9816-08-03 10:37:007.5[facility] VbfkklgGBXYBZXVJK9354-87-91 10:37:00 Test Item Value Reference Range Interpretation Comments PT (test code = PT) 12.8 s 12.0-14.7 [facility] ZdiewigMIMFSCNPAR1132-50-95 10:37:00 Test Item Value Reference Range Interpretation Comments INR (test code = INR) 0.97 1 0.85-1.17 [facility] BwofimkDFQPTNFOHM4051-21-62 10:37:00 Test Item Value Reference Range Interpretation Comments PTT (test code = PTT) 25.0 s 22.9-35.8 [facility] HswudfvIIRVLMCWTM0590-10-92 10:37:0070.5[facility] HermannHEMATOLOGY 2020-08-29 10:37:0018.8[facility] SlusvflPOEPZYUYGC1464-29-51 10:37:009.5[facility] DvtksgyTPHYHZVKRZ6806-06-06 10:37:000.9[facility] LqwkcerVZLLPBTUPB6677-97-35 10:37:000.3[facility] KmxvgzlYICWMJZQCO5091-10-06 10:37:004.8[facility] [place] LTXWAPNMDC9993-90-68 10:37:001.3[facility] SiajaugPDJDRWCRHL7033-36-66 10:37:000.6 [facility] WfmfbjjKXDUFMTTKW2843-98-25 10:37:000.1[facility]annHEMATOLOGY 2020-08-29 10:37:001+ *ABN*(08/29/20 5:37 AM)[facility] AtcyrzxKBOZWFSMNP6501-50-03 10:37:00Not Detected (08/29/20 5:37 AM)[facility] HermannBLOOD BANK RESULTS 2020-08-29 10:37:00Negative (08/29/20 5:37 AM)[facility] HermannCHEM AAAND2768-36-33 10:37:31013Nfmxlepz HermannCHEM KSOIH3639-18-69 10:37:0028[facility] HermannCHEM YWIDG3145-87-57 10:37:001.01[facility] HermannCHEM WLRYF1103-68-57 10:37:31035 [facility]annCHEM TOIPC9870-41-43 10:37:003.8[facility] HermannCHEM PANEL 2020-08-29 10:37:29839Wrpltnsf HermannCHEM FMLTD4918-09-50 10:37:0028[facility] HermannCHEM WZKFA8528-02-67 10:37:009.8[facility] HermannCHEM YMLLG0799-39-31 10:37:0011.8[facility] HermannCHEM EESIM6381-10-55 10:37:0059[facility] HermannCHEM AORIK6687-98-48 10:37:002.9[facility] ZhxwgbtGDPCHJMFXR1875-03-35 10:37:006.8 [facility] QqxuewlRENFVPJHDT1163-83-97 10:37:004.47[facility]annHEMATOLOGY 2020-08-29 10:37:0010.6[facility] RsoxyyoXPOTXLSVXX5047-21-79 10:37:0034.0[facility] EonymdePGATFGCSIG2425-61-20 10:37:0076.1[facility] UzfgzmsINSNGDWHMM7370-10-66 10:37:00 Test Item Value Reference Range Interpretation Comments MCH (test code = MCH) 23.8 pg 27.0-31.0 [facility] PbxyacuRWKMXBYBOM8236-89-83 10:37:0031.3[facility] HermannHEMATOLOGY 2020-08-29 10:37:0018.2[facility] GzdhzivQPSMCWMGUW0915-52-07 10:37:20714Itlztqnw StogmilGWKKDLWGWY1926-30-06 10:37:007.5[facility] XaevjaxRGWMEGENWC5391-27-91 10:37:00 Test Item Value Reference Range Interpretation Comments PT (test code = PT) 12.8 s 12.0-14.7 [facility] JwuhrqdYCCXYVDVXK2505-17-57 10:37:00 Test Item Value Reference Range Interpretation Comments INR (test code = INR) 0.97 1 0.85-1.17 [facility] [address]tojsnFBBTVXXFZW8549-90-26 10:37:00 Test Item Value Reference Range Interpretation Comments PTT (test code = PTT) 25.0 s 22.9-35.8 [facility] RdpmwfmQFKDTQKFKE5190-74-45 10:37:0070.5[facility]annHEMATOLOGY 2020-08-29 10:37:0018.8[facility] GthsdkhUHCEAZQNUR3275-48-57 10:37:009.5[facility] GgacjmqOZMZRSKHZH9448-77-38 10:37:000.9[facility] PwqizmzIDGDPBMDWE7921-32-68 10:37:000.3[facility] SmcncacMUBMLMNULI8093-10-44 10:37:004.8[facility] NOAHRULUFR8256-33-84 10:37:001.3[facility] RfcobeuUURMNXZXED5911-26-42 10:37:000.6 [facility] TkldmsqBEJXIUWNHM0044-72-24 10:37:000.1[facility]annHEMATOLOGY 2020-08-29 10:37:001+ *ABN*(08/29/20 5:37 AM)[facility] UrqoszeHLYUIHCQNJ6255-67-22 10:37:00Not Detected (08/29/20 5:37 AM)[facility], TV,PCR, IN QYXHR2980-26-17 15:38:00 Test Item Value Reference Range Interpretation Comments FT (test code = CHTR) Not detected (qualifier Not Detected N value) FT (test code = Not detected (qualifier Not Detected N NGONO) value) FT (test code = TRVG) Not detected (qualifier Not Detected N value) [facility]URINAL[facility] WITH DANOFXCRSWR9955-73-89 10:57:00 Test Item Value Reference Range Interpretation Comments Color (test code = UCOLR) Dk. Yellow Clarity (test code = UCLAR) Hazy Glucose (test code = UGLUC) NEGATIVE NEGATIVE N Bilirubin (test code = UBILI) NEGATIVE NEGATIVE N Ketones (test code = UKET) NEGATIVE NEGATIVE N Specific [place] (test code = 1.025 1.005-1.030 A USPGR) [...]
--- NOTE | 2023-02-26 13:06 | ER ---
Nurse's Notes [facility] Name: Marjan Kolb Age: 68 yrs Sex: Female : 1955 Arrival Date: 02/26/2023 Time: 12:37 Bed IW1 Private MD: Diagnosis: Pain in right upper arm Presentation: 02/26 13:03 Chief complaint: Seen on 02/21 for right arm pain after failed IV attempt during as6 previous visit, concerned about continued bruising and swelling. Coronavirus screen: At this time, the client does not indicate any symptoms associated with coronavirus-19. Ebola Screen: No symptoms or risks identified at this time. Initial Sepsis Screen: Does the patient meet any 2 criteria? No. Patient's initial sepsis screen is negative. Does the patient have a suspected source of infection? No. Patient's initial sepsis screen is negative. Risk Assessment: Do you want to hurt yourself or someone else? Patient reports no desire to harm self or others. Onset of symptoms was February 26, 2023. 13:03 Method Of Arrival: Ambulatory as6 13:03 Acuity: BLAYNE 4 as6 Triage Assessment: 13:05 General: Appears in no apparent distress. Behavior is calm, cooperative. Pain: Pain as6 currently is 2 out of 10 on a pain scale. Neuro: Level of Consciousness is awake, alert, obeys commands, Oriented to person, place, time, situation. Cardiovascular: Patient's skin is warm and dry. Respiratory: Respiratory effort is even, unlabored, Respiratory pattern is regular, symmetrical. Historical: - Allergies: 13:01 Azithromycin; 6 13:01 Bactrim; 6 13:01 butorphanol; as6 13:01 Fentanyl; as6 13:01 Reglan; as6 13:01 Sulfa (Sulfonamide Antibiotics); as6 13:01 TRIMETHOPRIM; as6 - PMHx: 13:01 angina pectoris; Anxiety; Atrial fibrillation; Bipolar disorder; esophageal varicies; as6 Hepatitis; HIV positive; Hypertensive disorder; Migraine; panic attack; - PSHx: 13:01 Appendectomy; Cholecystectomy; as6 - Immunization history:: Adult Immunizations up to date. - Social history:: Smoking status: Patient denies any tobacco usage or history of. Screenin:05 [facility] ED Fall Risk Assessment (Adult) Score/Fall Risk Level 0 - 2 = Low Risk as6 Oriented to surroundings, Maintained a safe environment, Educated pt \T\ family on fall prevention, incl call for assistance when getting out of bed. Abuse screen: Denies threats or abuse. Denies injuries from another. Nutritional screening: No deficits noted. Tuberculosis screening: No symptoms or risk factors identified. Assessment: 13:05 General: See triage assessment. as6 Vital Signs: 13:03 BP 167 / 96; Pulse 62; Resp 16; Pulse Ox 95% on R/A; Pain 2/10; as6 13:03 Pain Scale: Adult as6 ED Course: 12:41 Patient arrived in ED. rg4 12:44 Karen Quintanilla FNP is [facility]. jh7 12:44 Howard Samaniego MD is Attending Physician. jh7 13:04 Triage completed. as6 13:04 Arm band placed on. as6 13:06 Patient has correct armband on for positive identification. Provided Education on: . as6 Administered Medications: 13:15 Drug: Acetaminophen PO 1000 mg PO once Route: PO; as6 Medication: 13:05 VIS not applicable for this client. as6 Outcome: 13:06 Discharge ordered by . 7 13:15 Patient left the ED. as6 Signatures: Polina Camarillo rg4 Dayo Ko RN RN as6 Karen Quintanilla FNP FNP [facility]
--- NOTE | 2023-02-26 13:06 | EDPHYS ---
Physician Documentation [facility] Name: Marjan Kolb Age: 68 yrs Sex: Female : 1955 Arrival Date: 02/26/2023 Time: 12:37 Bed IW1 Private MD: ED Physician Howard Samaniego HPI: 02/26 13:01 This 68 yrs old Female presents to ER via Ambulatory with complaints of Arm Pain. 7 13:01 Patient presents for continued right arm pain. States that she was seen on 02/21 for the [facility] same issue and that DVT was ruled out. Reports that she is concerned because of persistent bruising.. Historical: - Allergies: 13:01 Azithromycin; as6 13:01 Bactrim; as6 13:01 butorphanol; as6 13:01 Fentanyl; as6 13:01 Reglan; as6 13:01 Sulfa (Sulfonamide Antibiotics); as6 13:01 TRIMETHOPRIM; as6 - PMHx: 13:01 angina pectoris; Anxiety; Atrial fibrillation; Bipolar disorder; esophageal varicies; as6 Hepatitis; HIV positive; Hypertensive disorder; Migraine; panic attack; - PSHx: 13:01 Appendectomy; Cholecystectomy; as6 - Immunization history:: Adult Immunizations up to date. - Social history:: Smoking status: Patient denies any tobacco usage or history of. ROS: 13:01 Constitutional: Negative for fever, chills, and weight loss, Eyes: Negative for injury, jh7 pain, redness, and discharge, Neck: Negative for injury, pain, and swelling, Cardiovascular: Negative for chest pain, palpitations, and edema, Respiratory: Negative for shortness of breath, cough, wheezing, and pleuritic chest pain, Back: Negative for injury and pain, Skin: Negative for injury, rash, and discoloration, Neuro: Negative for headache, weakness, numbness, tingling, and seizure, 13:01 MS/extremity: Positive for ecchymosis, pain, Negative for decreased range of motion, 13:01 All other systems are negative, Exam: 13:01 Constitutional: This is a well developed, well nourished patient who is awake, alert, jh7 and in no acute distress. Head/Face: Normocephalic, atraumatic. Cardiovascular: Regular rate and rhythm with a normal S1 and S2. No gallops, murmurs, or rubs. Normal PMI, no JVD. No pulse deficits. Respiratory: Lungs have equal breath sounds bilaterally, clear to auscultation and percussion. No rales, rhonchi or wheezes noted. No increased work of breathing, no retractions or nasal flaring. Back: No spinal tenderness. No costovertebral tenderness. Full range of motion. Skin: Warm, dry with normal turgor. Normal color with no rashes, no lesions, and no evidence of cellulitis. Neuro: Awake and alert, GCS 15, oriented to person, place, time, and situation. Motor strength 5/5 in all extremities. Sensory grossly intact. Normal gait. 13:01 Musculoskeletal/extremity: ROM: full active range of motion, Pulses: Perfusion: the extremity is normally perfused throughout, pink, warm, with brisk capillary refill, Sensation intact. Bruising present on right upper arm where the patient states that a student attempted an ultrasound IV.. Vital Signs: 13:03 BP 167 / 96; Pulse 62; Resp 16; Pulse Ox 95% on R/A; Pain 2/10; as6 13:03 Pain Scale: Adult as6 MDM: 12:44 Patient medically screened. [facility] 13:15 Differential diagnosis: contusion. Data reviewed: vital signs, nurses notes. I 7 considered the following discharge prescriptions or medication management in the emergency department Medications were administered in the Emergency Department. See MAR. Counseling: I had a detailed discussion with the patient and/or guardian regarding the historical points, exam findings, and any diagnostic results supporting the discharge/admit diagnosis, to return to the emergency department if symptoms worsen or persist or if there are any questions or concerns that arise at home. Administered Medications: 13:15 Drug: Acetaminophen PO 1000 mg PO once Route: PO; as6 Disposition: 14:53 Co-signature as Attending Physician, Howard Samaniego MD I reviewed the patient's care rt provided by the Advanced Practice Provider and agree with the diagnosis and treatment plan. Disposition Summary: 02/26/23 13:06 Discharge Ordered Notes: Location: Home [facility] Problem: new [facility] Symptoms: are unchanged [facility] Condition: Stable [facility] Diagnosis - Pain in right upper arm [facility] Followup: [facility] - With: Private Physician - When: As needed - Reason: Discharge Instructions: - Discharge Summary Sheet jh7 - Musculoskeletal Pain 7 - How to Use Cold Therapy jh7 - Heat Therapy [facility] Forms: - Medication Reconciliation Form 7 - Thank You Letter 7 - Patient Portal Instructions [facility] - Leadership Thank You Letter [facility] Signatures: Dayo Ko RN RN as6 Karen Quintanilla, [employer] jh7 oHward Samaniego MD MD rt
[2023-02-26] MEDS ORDERED: ACETAMINOPHEN 500 MG TAB ONE (13:23)
[2023-02-26 13:28] VITALS: BP 167/96; O2SAT 95
== END 2023-02-26 13:15 | disposition home or self-care (01) ==
LOC: ER 12:37
DX: M79.621 Pain in right upper arm (principal); B20 Human immunodeficiency virus [HIV] disease; I48.91 Unspecified atrial fibrillation; K75.9 Inflammatory liver disease, unspecified; Z88.1 Allergy status to other antibiotic agents
CPT/HCPCS: 99282

== ENCOUNTER 2023-02-27 08:08 | Emergency (ER) | payer OTHER ==
[2023-02-27] MEDS ORDERED: ACETAMINOPHEN 500 MG TAB ONE (08:36)
[2023-02-27] MEDS ORDERED: HYDRALAZINE HCL 25 MG TABLET ONE (08:36)
--- OUTSIDE RECORDS SUMMARY | 2023-02-27 08:40 | XMS REPORT | Continuity of Care Document ---
:1955 Author Organization [facility] t Address [address] [facility]. Micah. [address] [place] [address] Support Name Relationship Address Phone UNK, UNK SELF . [phone] . UNK, UNK SELF . [phone] . RABIA MUNIZ DA X [phone] . [place] [address] NONE, GIVEN OT X [phone] [place] [address] MATHEUS MUNIZ Unavailable [address] [facility] [phone] [address] [place] [address] BHARAT DEAN SP Unavailable JOSE MUNIZ CH [address] [facility] [phone] [address] [place] [address] Bharat Dean Spouse [address] [place] [address] Jose Dean Daughter Unavailable [phone] Jose Muniz Child [address] [facility] [place] [address] Jermaine Bharat Spouse [address] [place] [address] Jermaine, Bharat Spouse [address] [facility] [address] [place] [address] JOSE MUNIZ Relative [address] [facility] Unavaila ble [address] [place] [address] JERMAINEDARRELE Spouse [address] Un[place] [address] BHARAT DEAN RAY X [address] [facility] [address] [place] [address] Ray Bharat Dean Spouse [address] [facility] [address] [phone] [place] [address] Care Team Providers Name Role Phone Urmila [...] Attending Clinician Unavailable Robbi Bal Attending Clinician [facility] Attending Clinician Unavailable Stevo RAMIREZ, Isaias Arredondo Attending Clinician Unavailable TOMY MARIE Attending Clinician Unavailable Reilly Means MD Attending Clinician Ofe Shields MD Attending Clinician Tomy Marie MD Attending Clinician Doctor Unassigned, Deans Attending Clinician Unavailable CHARITY MCALLISTER Attending Clinician Unavailable Charity Mcallister MD Attending Clinician GADIEL KOEHLER Attending Clinician Unavailable Mike Lund Attending Clinician Unavailable NIKOLAI REEVES Attending Clinician Unavailable Eliseo Arce MD Attending Clinician Carol Ann IZQUIERDO, Sarai Lieberman Attending Clinician [phone] Ashly Pelletier MA Attending Clinician Unavailable Dagoberto Bass MD Attending Clinician [facility] Attending Clinician Lab, Adc Fam Pob I Attending Clinician Unavailable Clark SANCHEZ, Monica Attending Clinician Unavailable Agustina Ortiz MA Attending Clinician Unavailable Andrez RAMIREZ, Rody Attending Clinician Unavailable Remigio JENKINS, Kirit Barnes Attending Clinician HEMATPOMILTON HILLJENSEN Attending Clinician Unavailable Caridad SLAGUERO, Gloria Attending Clinician Xiao RN, Michael Corbin Attending Clinician Unavailable [facility] Attending Clinician UnavailDO PORSHA Newell Attending Clinician Unavailable Rodo JENKINS, Gadiel Attending Clinician Tyrone JENKINS, Eveline Sierra Attending Clinician Stanislav RAMIREZ, Eladio Inman Attending Clinician Unavailable Geraldine SALGUERO, Leyda Attending Clinician [phone] Selvin RAMIREZ, Stefanie Attending Clinician Unavailable Bill COLES Admitting Clinician Unavailable HOME MATTHEWS Admitting Clinician Unavailable ANETTE OLEA Admitting Clinician Unavailable TOMY MARIE Admitting Clinician Unavailable Frank JENKINS, Tomy Admitting Clinician RahmanLele bird Admitting Clinician Unavailable Mike Lund Admitting Clinician Unavailable ELISEO ARCE Admitting Clinician Unavailable DO PORSHA STREETER Admitting Clinician Unavailable Payers Payer Name Policy Type Policy Number Effective Date Expiration Date S gabino [facility] [id number] 2012 STAR PLUS OON 00:00:[address] [facility] [id number] 2019 DUAL COMPLETE HMO 00:00:00 [facility] STAR [id number] 2019 PLUS 00:00:00 [facility] [id number] 2019 [facility] [place] STAR 00:00:00 [employer] MEDICARE ADV [id number] 2019 2019 00:00:00 00:00:00 Problems Condition Condition Condition Status Onset Resolution Last Treating Co mments Source Name Details Category Date Date Treatment Clinician Date Dyspnea, Dyspnea, Disease Active Unive rs unspecifie unspecifie 02-11 it y of d type d type 00:00: [address] [facility] Gastropare Disease Active Overview : Methodi sis sis 4-[address] 00:00: [facility] note l might be different from the original. Added automatic ally from request for surgery [id number] Dysphagia Dysphagia Disease Active Overview: Methodi 4-[address] 00:00: [facility] 00 note l might be different from the original. Added automatic ally from request for surgery [id number] CCL / EPS CCL / EPS Diagnosis [...] Garcia [facility] trimetho DA Active [facility] prim - Clear 00:00: Garcia [facility] codeine DA Active SV N/V [facility] - Clear 00:00: Garcia [facility] Metoclop Propensi Active [place] ramide ty to [...] Date Source Natural father Diabetes [facility] Natural father Other - see comments [facility] Natural father [facility] Disease [facility] father [facility] Social History Social Habit Start Date Stop Date Quantity Comments Source Gender identity [facility] History SDOH [facility] Alcohol Frequency Hospita l History SDOH [facility] Alcohol Std Drinks Hospit al History SDPR [facility] Sexual [facility] History of Social 2022-08-26 2022-08-[address] function 00:00:00 00:00:00 Hospital Exposure to 2022-04-30 2022-05-10 Yes University of SARS-CoV-2 (event) 00:00:00 10:25:00 [facility] Tobacco use and 2022-02-11 2022-02-11 Former smokeless Uni versity of exposure 00:00:00 00:00:00 tobacco user [facility] Tobacco Comment 2022-02-11 2022-02-11 Smokes approx 1-2 Un iversity of 00:00:00 00:00:00 cigarettes per [facility] day when she Branch smokes Alcohol intake 2020-12-08 2020-12-08 Current drinker [facility] 00:00:00 00:00:00 of [facility] (finding) Cigarettes smoked 2020-09-05 2020-09-[address] current (pack per 00:00:00 00:00:00 Hospita l day) - Reported Cigarette 2020-09-05 2020-09-05 [facility] pack-years 00:00:00 00:00:00 Hospital Alcohol Comment 2016-09-23 2016-09-23 rare [facility] 00:00:00 00:00:00 Hospital History of tobacco 2011-09-29 User of smokeless University of use 00:00:00 tobacco [facility] Sex Ass[birth year] At [birth year] [place] [facility] 00:00:[facility] 00:00:00 Smoking Status Start Date Stop Date Source Ex-smoker 2022-02-11 00:00:00 2022-02-11 00:00:00 [facility] Medical Branch Medications Ordered Filled Start Stop Current Ordering Indication Dosage Frequency Signature Comments Components Source Medication Medication Date Date Medication? Clinician (SIG) Name Name ondansetron 0 2022- No 4mg 4 mg, Slow Univers (ZOFRAN 01-28 IV Push, ity of (PF)) 00:15: 23:13 ONCE, 1 [place] injection 4 00 :00 dose, On Medi porfirio mg [facility] 01/27/23 Branch at 1915, JOE KCL 2022-2022- No 40meq 40 mEq, Univers (KLOR-CON 01-28 Oral, ity of M20) tablet 00:15: 23:13 [place]CE[place] 1 [place] 40 mEq 00 :00 dose, On [facility] 01/27/23 Branch at 191, Routine dicyclomine 2022- No 20mg 20 mg, Uni vers (BENTYL) 01-28 Oral, ity of tablet 20 00:15: 23:13 ONCE, 1 [place] mg 00 :00 dose, On [facility] 01/27/23 Branch at 1915, Routine NaCl 0.9% 2022- No 1000mL at 999 Uni vers (NS) bolus 01-27 mL/hr, ity of infusion 23:00: 23:59 1,000 mL, [place] 1,000 mL 00 :00 IV Medical Infusion, Branch ONCE, 1 dose, On [facility] 01/27/23 at 1800, STAT ondansetron 2022- No 4mg 4 mg, Slow Univers (ZOFRAN 01-27 IV Push, ity of (PF)) 21:00: 21:10 ONCE, 1 [place] injection 4 00 :00 dose, On Medi porfirio mg [facility] 01/27/23 Branch at 1600, JOE morpHINE (4 2022- No 4mg 4 mg, Slow Univers mg/mL) 01-27 IV Push, ity of injection 4 21:00: 21:15 ONCE, 1 [place] mg 00 :00 dose, On [facility] 01/27/23 Branch at 1600, STAT iopamidol 202-0 2022- No [id number] 70mL 70 mL, U nivers (ISOVUE 01-27 Intravenou ity o f 370-500 mL) 20:44: 20:45 s, ONCE, 1 [place] injection 00 :00 dose, On Medica l 70 mL [facility] 01/27/23 Branch at 1600, Routine hydralAZINE 0 2022- No 10mg 10 mg, Uni vers (APRESOLINE 01-27 Slow IV ity of ) injection 20:00: 21:10 [place] 10 mg 00 :00 ONCE, 1 Medical dose, On Branch [place] 01/27/23 at 1500, JOE ondansetron 0 Yes [id number] 4mg Take 1 Univers 4 mg - tablet by ity of disintegrat 00:00: mouth [place] ing tablet 00 every 8 Medica l (eight) Branch hours as needed for Nausea and Vomiting (N/V). dicyclomine 0 Yes [id number] 20mg Take 1 Univers 20 mg - tablet by ity of tablet 00:00: mouth 4 [place] 00 (four) Medical times Branch daily. emtricitabi 2022-0 Yes [id number] Take one Univers ne-tenofovi 6-12 po daily ity of r alafen 00:00: [place] (DESCOVY) 00 Medical tablet Branch raltegravir 0 Yes [id number] 400mg Take 1 Univers (ISENTRESS) 6-12 tablet by ity of 400 mg 00:00: mouth in [place] tablet 00 the Medical morning Branch and 1 tablet in the evening. emtricitabi 2022-0 Yes [id number] Take one Univers ne-tenofovi 6-12 po daily ity of r alafen 00:00: [place] (DESCOVY) 00 Medical tablet Branch raltegravir 0 Yes [id number] 400mg Take 1 Univers (ISENTRESS) 6-12 tablet by ity of 400 mg 00:00: mouth in [place] tablet 00 the Medical morning Branch and 1 tablet in the evening. emtricitabi 2022-0 Yes [id number] Take one Univers ne-tenofovi 6-12 po daily ity of r alafen 00:00: [place] (DESCOVY) 00 Medical tablet Branch raltegravir 0 Yes [id number] 400mg Take 1 Univers (ISENTRESS) 6-12 tablet by ity of 400 mg 00:00: mouth in [place] tablet 00 the Medical morning Branch and 1 tablet in the evening. DESCOVY 0 Yes [id number] Take one Univers tablet 5-08 po daily ity of 00:00: [place] 00 Medical Branch raltegravir 2022-0 Yes [id number] 400mg Take 1 Univers (ISENTRESS) 5-08 tablet by ity of 400 mg 00:00: mouth in [place] tablet 00 the Medical morning Branch and 1 tablet in the evening. DESCOVY 2022- No [id number] Take one Univers tablet 5-08 -12 po daily ity of 00:00: 00:00 [place] 00 :00 Medical Branch raltegravir 0 2022- No [id number] 400mg Take 1 Univers (ISENTRESS) 5-08 -12 tablet by it y of 400 mg 00:00: 00:00 mouth in [place] tablet 00 :00 the Medical morning Branch and 1 tablet in the evening. emtricitabi 0 Yes [id number] Take one Univers ne-tenofovi 4-04 po daily ity of r alafen 00:00: [place] (DESCOVY) 00 Medical tablet Branch emtricitabi 0 Yes [id number] Take one Univers ne-tenofovi 4-04 po daily ity of r alafen 00:00: [place] (DESCOVY) 00 Medical tablet Branch emtricitabi 0 2022- No [id number] Take one Univers ne-tenofovi 4-04 05-08 po [...] ity of (MAG-OX 20:00: 19:37 ONCE, 1 [place] 400) tablet 00 :00 dose, On Medi porfirio 800 mg [facility] 05/10/22 at 1400, Routine KCL 2021-05 No 40meq 40 mEq, Univers (KLOR-CON 07-11 Oral, ity of M20) tablet 19:15: 19:37 ONCE, 1 [place] 40 mEq 00 :00 dose, On Medical [facility] 05/10/22 at 1315, JOE [...] Branch ONCE, 1 dose, On [facility] 05/10/22 at 1145, JOE cefpodoxime 2021-05- No [id number] 100mg Take 1 Univers 100 mg 2-17 12-25 tablet by ity of tablet 00:00: 05:59 mouth in [place] 00 :00 [facility] and 1 tablet in the evening. Do all this for 7 days. cefpodoxime 2021-05- No [id number] 100mg Take 1 Univers 100 mg 2-17 12-25 tablet by ity of tablet 00:00: 05:59 mouth in [place] 00 :00 [facility] and 1 tablet in the evening. Do all this for 7 days. cefpodoxime 2021-05- No [id number] 100mg Take 1 Univers 100 mg 2-17 12-25 tablet by ity of tablet 00:00: 05:59 mouth in [place] 00 :00 [facility] and 1 tablet in the evening. [...] injection 8 00 :00 dose, On Medi porfiroi mg [place] [facility] 05/06/22 at 1515, JOE ondansetron 2021-05 Yes [id number] 1-2 U nivers 4 mg tablet 2-15 tablets ity o f 00:00: every 8 [place] 00 hours as Medical needed for Branch nausea benzonatate 2021-05 Yes [id number] 200mg Take 1 Univers 200 mg 2-15 capsule by ity of capsule 00:00: mouth 3 [place] 00 (three) Medical times Branch daily as needed for Cough. albuterol 2021-05 Yes [id number] 2{puff} Inhale 2 Univers 90 2-15 Puffs ity of mcg/actuati 00:00: every 4 [place] on inhaler 00 (four) Medical hours as Branch needed for Wheezing or Shortness of Breath. butalbital- 2021-05 Yes [id number] 1{tbl} Take 1 Univers acetaminoph 2-15 tablet by ity of en-caff 00:00: mouth [place] 50-325-40 00 every 4 Medical mg tablet (four) Branch hours as needed (headache) . ondansetron 2021-05 Yes [id number] 1-2 U nivers 4 mg tablet 2-15 tablets ity o f 00:00: every 8 [place] 00 hours as Medical needed for Branch nausea benzonatate 2021-05 Yes [id number] 200mg Take 1 Univers 200 mg 2-15 capsule by ity of capsule 00:00: mouth 3 [place] 00 (three) Medical times Branch daily as needed for Cough. albuterol 2021-05 Yes [id number] 2{puff} Inhale 2 Univers 90 2-15 Puffs ity of mcg/actuati 00:00: every 4 [place] on inhaler 00 (four) Medical hours as Branch needed for Wheezing or Shortness of Breath. butalbital- 2021-05 Yes [id number] 1{tbl} Take 1 Univers acetaminoph 2-15 tablet by ity of en-caff 00:00: mouth [place] 50-325-40 00 every 4 Medical mg tablet (four) Branch hours as needed (headache) . ondansetron 2021-05 Yes [id number] 1-2 U nivers 4 mg tablet 2-15 tablets ity o f 00:00: every 8 [place] 00 hours as Medical needed for Branch nausea benzonatate 2021-05 Yes [id number] 200mg Take 1 Univers 200 mg 2-15 capsule by ity of capsule 00:00: mouth 3 [place] 00 (three) Medical times Branch daily as needed for Cough. albuterol 2021-05 Yes [id number] 2{puff} Inhale 2 Univers 90 2-15 Puffs ity of mcg/actuati 00:00: every 4 [place] on inhaler 00 (four) Medical hours as Branch needed for Wheezing or Shortness of Breath. butalbital- 2021-05 Yes [id number] 1{tbl} Take 1 Univers acetaminoph 2-15 tablet by ity of en-caff 00:00: mouth [place] 50-325-40 00 every 4 Medical mg tablet (four) Branch hours as needed (headache) . ondansetron 2021-05 Yes [id number] 1-2 U nivers 4 mg tablet 2-15 tablets ity o f 00:00: every 8 [place] 00 hours as Medical needed for Branch nausea benzonatate 2021-05 Yes [id number] 200mg Take 1 Univers 200 mg 2-15 capsule by ity of capsule 00:00: mouth 3 [place] 00 (three) Medical times Branch daily as needed for Cough. albuterol 2021-05 Yes [id number] 2{puff} Inhale 2 Univers 90 2-15 Puffs ity of mcg/actuati 00:00: every 4 [place] on inhaler 00 (four) Medical hours as Branch needed for Wheezing or Shortness of Breath. butalbital- 2021-05 Yes [id number] 1{tbl} Take 1 Univers acetaminoph 2-15 tablet by ity of en-caff 00:00: mouth [place] 50-325-40 00 every 4 Medical mg tablet (four) Branch hours as needed (headache) . ondansetron 2021-05 Yes [id number] 1-2 U nivers 4 mg tablet 2-15 tablets ity o f 00:00: every 8 [place] 00 hours as Medical needed for Branch nausea benzonatate 2021-05 Yes [id number] 200mg Take 1 Univers 200 mg 2-15 capsule by ity of capsule 00:00: mouth 3 [place] 00 (three) Medical times Branch daily as needed for Cough. albuterol 2021-05 Yes [id number] 2{puff} Inhale 2 Univers 90 2-15 Puffs ity of mcg/actuati 00:00: every 4 [place] on inhaler 00 (four) Medical hours as Branch needed for Wheezing or Shortness of Breath. butalbital- 2021-05 Yes [id number] 1{tbl} Take 1 Univers acetaminoph 2-15 tablet by ity of en-caff 00:00: mouth [place] 50-325-40 00 every 4 Medical mg tablet (four) Branch hours as needed (headache) . ondansetron 2021-05 Yes [id number] 1-2 U nivers 4 mg tablet 2-15 tablets ity o f 00:00: every 8 [place] 00 hours as Medical needed for Branch nausea benzonatate 2021-05 Yes [id number] 200mg Take 1 Univers 200 mg 2-15 capsule by ity of capsule 00:00: mouth 3 [place] 00 (three) Medical times Branch daily as needed for Cough. albuterol 2021-05 Yes [id number] 2{puff} Inhale 2 Univers 90 2-15 Puffs ity of mcg/actuati 00:00: every 4 [place] on inhaler 00 (four) Medical hours as Branch needed for Wheezing or Shortness of Breath. butalbital- 2021-05 Yes [id number] 1{tbl} Take 1 Univers acetaminoph 2-15 tablet by ity of en-caff 00:00: mouth [place] 50-325-40 00 every 4 Medical mg tablet (four) Branch hours as needed (headache) . ondansetron 2021-05 Yes [id number] 1-2 U nivers 4 mg tablet 2-15 tablets ity o f 00:00: every 8 [place] 00 hours as Medical needed for Branch nausea benzonatate 2021-05 Yes [id number] 200mg Take 1 Univers 200 mg 2-15 capsule by ity of capsule 00:00: mouth 3 [place] 00 (three) Medical times Branch daily as needed for Cough. albuterol 2021-05 Yes [id number] 2{puff} Inhale 2 Univers 90 2-15 Puffs ity of mcg/actuati 00:00: every 4 [place] on inhaler 00 (four) Medical hours as Branch needed for Wheezing or Shortness of Breath. butalbital- 2021-05 Yes [id number] 1{tbl} Take 1 Univers acetaminoph 2-15 tablet by ity of en-caff 00:00: mouth [place] 50-325-40 00 every 4 Medical mg tablet (four) Branch hours as needed (headache) . ondansetron 2021-05 Yes [id number] 1-2 U nivers 4 mg tablet 2-15 tablets ity o f 00:00: every 8 [place] 00 hours as Medical needed for Branch nausea benzonatate 2021-05 Yes [id number] 200mg Take 1 Univers 200 mg 2-15 capsule by ity of capsule 00:00: mouth 3 [place] 00 (three) Medical times Branch daily as needed for Cough. albuterol 2021-05 Yes [id number] 2{puff} Inhale 2 Univers 90 2-15 Puffs ity of mcg/actuati 00:00: every 4 [place] on inhaler 00 (four) Medical hours as Branch needed for Wheezing or Shortness of Breath. butalbital- 2021-05 Yes [id number] 1{tbl} Take 1 Univers acetaminoph 2-15 tablet by ity of en-caff 00:00: mouth [place] 50-325-40 00 every 4 Medical mg tablet (four) Branch hours as needed (headache) . ondansetron 2021-05 Yes [id number] 1-2 U nivers 4 mg tablet 2-15 tablets ity o f 00:00: every 8 [place] 00 hours as Medical needed for Branch nausea benzonatate 2021-05 Yes [id number] 200mg Take 1 Univers 200 mg 2-15 capsule by ity of capsule 00:00: mouth 3 [place] 00 (three) Medical times Branch daily as needed for Cough. albuterol 2021-05 Yes [id number] 2{puff} Inhale 2 Univers 90 2-15 Puffs ity of mcg/actuati 00:00: every 4 [place] on inhaler 00 (four) Medical hours as Branch needed for Wheezing or Shortness of Breath. butalbital- 2021-05 Yes [id number] 1{tbl} Take 1 Univers acetaminoph 2-15 tablet by ity of en-caff 00:00: mouth [place] 50-325-40 00 every 4 Medical mg tablet (four) Branch hours as needed (headache) . ondansetron 2021-05 Yes [id number] 1-2 U nivers 4 mg tablet 2-15 tablets ity o f 00:00: every 8 [place] 00 hours as Medical needed for Branch nausea benzonatate 2021-05 Yes [id number] 200mg Take 1 Univers 200 mg 2-15 capsule by ity of capsule 00:00: mouth 3 [place] 00 (three) Medical times Branch daily as needed for Cough. albuterol 2021-05 Yes [id number] 2{puff} Inhale 2 Univers 90 2-15 Puffs ity of mcg/actuati 00:00: every 4 [place] on inhaler 00 (four) Medical hours as Branch needed for Wheezing or Shortness of Breath. butalbital- 2021-05 Yes [id number] 1{tbl} Take 1 Univers acetaminoph 2-15 tablet by ity of en-caff 00:00: mouth [place] 50-325-40 00 every 4 Medical mg tablet (four) Branch hours as needed (headache) . ondansetron 2021-05 Yes [id number] 1-2 U nivers 4 mg tablet 2-15 tablets ity o f 00:00: every 8 [place] 00 hours as Medical needed for Branch nausea benzonatate 2021-05 Yes [id number] 200mg Take 1 Univers 200 mg 2-15 capsule by ity of capsule 00:00: mouth 3 [place] 00 (three) Medical times Branch daily as needed for Cough. albuterol 2021-05 Yes [id number] 2{puff} Inhale 2 Univers 90 2-15 Puffs ity of mcg/actuati 00:00: every 4 [place] on inhaler 00 (four) Medical hours as Branch needed for Wheezing or Shortness of Breath. butalbital- 2021-05 Yes [id number] 1{tbl} Take 1 Univers acetaminoph 2-15 tablet by ity of en-caff 00:00: mouth [place] 50-325-40 00 every 4 Medical mg tablet (four) Branch hours as needed (headache) . ondansetron 2021-05 Yes [id number] 1-2 U nivers 4 mg tablet 2-15 tablets ity o f 00:00: every 8 [place] 00 hours as Medical needed for Branch nausea benzonatate 2021-05 Yes [id number] 200mg Take 1 Univers 200 mg 2-15 capsule by ity of capsule 00:00: mouth 3 [place] 00 (three) Medical times Branch daily as needed for Cough. albuterol 2021-05 Yes [id number] 2{puff} Inhale 2 Univers 90 2-15 Puffs ity of mcg/actuati 00:00: every 4 [place] on inhaler 00 (four) Medical hours as Branch needed for Wheezing or Shortness of Breath. butalbital- 2021-05 Yes [id number] 1{tbl} Take 1 Univers acetaminoph 2-15 tablet by ity of en-caff 00:00: mouth [place] 50-325-40 00 every 4 Medical mg tablet (four) Branch hours as needed (headache) . nirmatrelvi 2021-05- No [id number] 2{tbl} Take 2 Univers r-ritonavir 2-15 12-21 tablets by i ty of (PAXLOVID, 00:00: 05:59 [facility] :00 the Medical mg (150 mg morning Branch x 2)-100 mg and 2 tablet tablets in the evening. Do all this for 5 days. [facility] 2021-05- No [id number] 2{tbl} Take 2 Univers r-ritonavir 2-15 12-21 tablets by i ty of (PAXLOVID, 00:00: 05:59 [place] 300 00 :00 the Medical mg (150 mg morning Branch x 2)-100 mg and 2 tablet tablets in the evening. Do all this for 5 days. [facility] 2021-05- No [id number] 2{tbl} Take 2 Univers r-ritonavir 2-15 12-21 tablets by i ty of (PAXLOVID, 00:00: 05:59 mouth in Te [facility],) 300 00 :00 the Medical mg (150 mg morning Branch x 2)-100 mg and 2 tablet tablets in the evening. Do all this for 5 days. [facility] 2021-05- No [id number] 2{tbl} Take 2 Univers r-ritonavir 2-15 12-21 tablets by i ty of (PAXLOVID, 00:00: 05:59 mouth in Te [facility],) 300 00 :00 the Medical mg (150 [...] 04/22/22 at 1645, Routine amoxicillin 2021-05 Yes [id number] 1{tbl} Take 1 Univers -clavulanat - [id number] tablet by i ty of e 875-125 00:00: mouth [place] mg per 00 every 12 Medical tablet (twelve) Branch hours. ondansetron 2021-05 Yes [id number] 4mg Take 1 Univers 4 mg 2-01 [id number] tablet by ity of disintegrat 00:00: mouth [place] ing tablet 00 every 8 Medica l (eight) Branch hours as needed for Nausea and Vomiting (N/V). amoxicillin 2021-05 Yes [id number] 1{tbl} Take 1 Univers -clavulanat 2-01 [id number] tablet by i ty of e 875-125 00:00: mouth [place] mg per 00 every 12 Medical tablet (twelve) Branch hours. ondansetron 2021-05 Yes [id number] 4mg Take 1 Univers 4 mg 2-01 [id number] tablet by ity of disintegrat 00:00: mouth [place] ing tablet 00 every 8 Medica l (eight) Branch hours as needed for Nausea and Vomiting (N/V). amoxicillin 2021-05 Yes [id number] 1{tbl} Take 1 Univers -clavulanat 2-01 [id number] tablet by i ty of e 875-125 00:00: mouth [place] mg per 00 every 12 Medical tablet (twelve) Branch hours. ondansetron 2021-05 Yes [id number] 4mg Take 1 Univers 4 mg 2-01 [id number] tablet by ity of disintegrat 00:00: mouth [place] ing tablet 00 every 8 Medica l (eight) Branch hours as needed for Nausea and Vomiting (N/V). amoxicillin 2021-05 Yes [id number] 1{tbl} Take 1 Univers -clavulanat 2-01 [id number] tablet by i ty of e 875-125 00:00: mouth [place] mg per 00 every 12 Medical tablet (twelve) Branch hours. ondansetron 2021-05 Yes [id number] 4mg Take 1 Univers 4 mg 2-01 [id number] tablet by ity of disintegrat 00:00: mouth [place] ing tablet 00 every 8 Medica l (eight) Branch hours as needed for Nausea and Vomiting (N/V). amoxicillin 2021-05 Yes [id number] 1{tbl} Take 1 Univers -clavulanat 2-01 [id number] tablet by i ty of e 875-125 00:00: mouth [place] mg per 00 every 12 Medical tablet (twelve) Branch hours. ondansetron 2021-05 Yes [id number] 4mg Take 1 Univers 4 mg 2-01 [id number] tablet by ity of disintegrat 00:00: mouth [place] ing tablet 00 every 8 Medica l (eight) Branch hours as needed for Nausea and Vomiting (N/V). amoxicillin 2021-05 Yes [id number] 1{tbl} Take 1 Univers -clavulanat 2-01 [id number] tablet by i ty of e 875-125 00:00: mouth [place] mg per 00 every 12 Medical tablet (twelve) Branch hours. ondansetron 2021-05 Yes [id number] 4mg Take 1 [facility] 4 mg 2-01 [id number] tablet by ity of disintegrat 00:00: mouth [place] ing tablet 00 every 8 Medica l (eight) Branch hours as needed for Nausea and Vomiting (N/V). amoxicillin 2021-05 Yes [id number] 1{tbl} Take 1 [facility] -clavulanat 2-01 [id number] tablet by i ty of e 875-125 00:00: mouth [place] mg per 00 every 12 Medical tablet (twelve) Branch hours. ondansetron 2021-05 Yes [id number] 4mg Take 1 [facility] 4 mg 2- [id number] tablet by ity of disintegrat 00:00: mouth [place] ing tablet 00 every 8 Medica l (eight) Branch hours as needed for Nausea and Vomiting (N/V). amoxicillin 2021-05 Yes [id number] 1{tbl} Take 1 [facility] -clavulanat 2-01 [id number] tablet by i ty of e 875-125 00:00: mouth [place] mg per 00 every 12 Medical tablet (twelve) Branch hours. ondansetron 2021-05 Yes [id number] 4mg Take 1 [facility] 4 mg 2-01 [id number] tablet by ity of disintegrat 00:00: mouth [place] ing tablet 00 every 8 Medica l (eight) Branch hours as needed for Nausea and Vomiting (N/V). amoxicillin 2021-05 Yes [id number] 1{tbl} Take 1 [facility] -clavulanat 2-01 [id number] tablet by i ty of e 875-125 00:00: mouth [place] mg per 00 every 12 Medical tablet (twelve) Branch hours. ondansetron 2021-05 Yes [id number] 4mg Take 1 [facility] 4 mg 2-01 [id number] tablet by ity of disintegrat 00:00: mouth [place] ing tablet 00 every 8 Medica l (eight) Branch hours as needed for Nausea and Vomiting (N/V). amoxicillin 2021-05 Yes [id number] 1{tbl} Take 1 [facility] -clavulanat 2-01 [id number] tablet by i ty of e 875-125 00:00: mouth [place] mg per 00 every 12 Medical tablet (twelve) Branch hours. ondansetron 2021-05 Yes [id number] 4mg Take 1 [facility] 4 mg 2-01 [id number] tablet by ity of disintegrat 00:00: mouth [place] ing tablet 00 every 8 Medica l (eight) Branch hours as needed for Nausea and Vomiting (N/V). amoxicillin 2021-05 Yes [id number] 1{tbl} Take 1 [facility] -clavulanat 2-01 [id number] tablet by i ty of e 875-125 00:00: mouth [place] mg per 00 every 12 Medical tablet (twelve) Branch hours. ondansetron 2021-05 Yes [id number] 4mg Take 1 [facility] 4 mg 2- [id number] tablet by ity of disintegrat 00:00: mouth [place] ing tablet 00 every 8 Medica l (eight) Branch hours as needed for Nausea and Vomiting (N/V). amoxicillin 2021-05 Yes [id number] 1{tbl} Take 1 [facility] -clavulanat 2-01 [id number] tablet by i ty of e 875-125 00:00: mouth [place] mg per 00 every 12 Medical tablet (twelve) Branch hours. ondansetron 2021-05 Yes [id number] 4mg Take 1 [facility] 4 mg 2- [id number] tablet by ity of disintegrat 00:00: mouth [place] ing tablet 00 every 8 Medica l (eight) Branch hours as needed for Nausea and Vomiting (N/V). amoxicillin 2021-05 Yes [id number] 1{tbl} Take 1 [facility] -clavulanat 2-01 [id number] tablet by i ty of e 875-125 00:00: mouth [place] mg per 00 every 12 Medical tablet (twelve) Branch hours. ondansetron 2021-05 Yes [id number] 4mg Take 1 [facility] 4 mg 2-01 [id number] tablet by ity of disintegrat 00:00: mouth [place] ing tablet 00 every 8 Medica l (eight) Branch hours as needed for Nausea and Vomiting (N/V). amoxicillin 2021-05 Yes [id number] 1{tbl} Take 1 [facility] -clavulanat 2-01 [id number] tablet by i ty of e 875-125 00:00: mouth [place] mg per 00 every 12 Medical tablet (twelve) Branch hours. ondansetron 2021-05 Yes [id number] 4mg Take 1 [facility] 4 mg 06-23 [id number] tablet by ity of disintegrat 00:00: mouth [place] ing tablet 00 every 8 Medica l (eight) Branch hours as needed for Nausea and Vomiting (N/V). zoster 2021-05- No [id number] .5mL 0.5 mL by [facility] vaccine, 0-05 03- 9104 [facility] ity of recombinant 00:00: 04:59 lar route [place] (SHINGRIX, 00 :00 once now Medic al PF,) for 1 Branch injection dose. And repeat in 2-6 months zoster 2021-05- No [id number] .5mL 0.5 mL by [facility] vaccine, 0-05 03- 9104 [facility] ity of recombinant 00:00: 04:59 lar route [place] (SHINGRIX, 00 :00 once now Medic al PF,) for 1 Branch injection dose. And repeat in 2-6 months zoster 2021-05- No [id number] .5mL 0.5 mL by [facility] vaccine, 0-05 [...] o f 1 mg tablet 19:28: at [place] [address] bedtime. Medical Branch traZODone 2021-0 Yes 50mg Take 50 mg Un matt 100 mg 9-27 by mouth ity of tablet 19:28: at [place] [address] bedtime. Medical Branch hydralAZINE 2021-0 Yes 25mg [...] o f 1 mg tablet 19:28: at [place] [address] bedtime. Medical Branch traZODone 2021-0 Yes 50mg Take 50 mg Un matt 100 mg 9-27 by mouth ity of tablet 19:28: at [place] [address] bedtime. Medical Branch hydralAZINE 2021-0 Yes 25mg [...] o f 1 mg tablet 19:28: at [place] [address] bedtime. Medical Branch traZODone 2021-0 Yes 50mg Take 50 mg Un matt 100 mg 9-27 by mouth ity of tablet 19:28: at [place] [address] bedtime. Medical Branch hydralAZINE 2021-0 Yes 25mg [...] 100 mg 04 (two) Medical tablet times [place] daily. amLODIPine 2021-0 Yes 10mg Take 10 mg U nivers (NORVASC) 9- by mouth ity of 10 mg 19:28: daily. [place] tablet 04 Medical Branch clonazePAM 0 Yes 1mg Take 1 mg Un matt (KLONOPIN) 9-27 by mouth ity o f 1 mg tablet 19:28: at [place] [address] bedtime. Medical Branch traZODone 2021-0 Yes 50mg Take 50 mg Un matt 100 mg 9-27 by mouth ity of tablet 19:28: at [place] [address] bedtime. Medical Branch hydralAZINE 2021-0 Yes 25mg [...] o f 1 mg tablet 19:28: at [place] [address] bedtime. Medical Branch traZODone 2021-0 Yes 50mg Take 50 mg Un matt 100 mg 9-27 by mouth ity of tablet 19:28: at [place] [address] bedtime. Medical Branch hydralAZINE 2021-0 Yes 25mg [...] 100 mg 04 (two) Medical tablet times [place] daily. amLODIPine 2021-0 Yes 10mg Take 10 mg U nivers (NORVASC) 9-27 by mouth ity of 10 mg 19:28: daily. [place] tablet 04 Medical Branch clonazePAM 2021-0 Yes 1mg Take 1 mg Un matt (KLONOPIN) 9-27 by mouth ity o f 1 mg tablet 19:28: at [place] [address] bedtime. Medical Branch traZODone 2021-0 Yes 50mg Take 50 mg Un matt 100 mg 9-27 by mouth ity of tablet 19:28: at [place] [address] bedtime. Medical Branch hydralAZINE 2021-0 Yes 25mg [...] o f 1 mg tablet 19:28: at [place] [address] bedtime. Medical Branch traZODone 2021-0 Yes 50mg Take 50 mg Un matt 100 mg 9-27 by mouth ity of tablet 19:28: at [place] [address] bedtime. Medical Branch hydralAZINE 2021-0 Yes 25mg [...] 100 mg 04 (two) Medical tablet times [place] daily. amLODIPine 2021-0 Yes 10mg Take 10 mg U nivers (NORVASC) 9-27 by mouth ity of 10 mg 19:28: daily. [place] tablet 04 Medical Branch clonazePAM 2021-0 Yes 1mg Take 1 mg Un matt (KLONOPIN) 9-27 by mouth ity o f 1 mg tablet 19:28: at [place] [address] bedtime. Medical Branch traZODone 2021-0 Yes 50mg Take 50 mg Un matt 100 mg 9-27 by mouth ity of tablet 19:28: at [place] [address] bedtime. Medical Branch hydralAZINE 2021-0 Yes 25mg [...] o f 1 mg tablet 19:28: at [place] [address] bedtime. Medical Branch traZODone 2021-0 Yes 50mg Take 50 mg Un matt 100 mg 9-27 by mouth ity of tablet 19:28: at [place] [address] bedtime. Medical Branch hydralAZINE 2021-0 Yes 25mg [...] o f 1 mg tablet 19:28: at [place] [address] bedtime. Medical Branch traZODone 2022-0 Yes 50mg Take 50 mg Un matt 100 mg 9-27 by mouth ity of tablet 19:28: at [place] [address] bedtime. Medical Branch hydralAZINE 2021-0 Yes 25mg [...] o f 1 mg tablet 19:28: at [place] [address] bedtime. Medical Branch traZODone 2021-0 Yes 50mg Take 50 mg Un matt 100 mg 9-27 by mouth ity of tablet 19:28: at [place] [address] bedtime. Medical Branch hydralAZINE 2021-0 Yes 25mg [...] o f 1 mg tablet 19:28: at [place] [address] bedtime. Medical Branch traZODone 2022-0 Yes 50mg Take 50 mg Un matt 100 mg 9-27 by mouth ity of tablet 19:28: at [place] [address] bedtime. Medical Branch hydralAZINE 2021-0 Yes 25mg [...] o f 1 mg tablet 19:28: at [place] [address] bedtime. Medical Branch traZODone 2021-0 Yes 50mg Take 50 mg Un matt 100 mg 9-27 by mouth ity of tablet 19:28: at [place] [address] bedtime. Medical Branch hydralAZINE 2021-0 Yes 25mg [...] o f 1 mg tablet 19:28: at [place] [address] bedtime. Medical Branch traZODone 2021-0 Yes 50mg Take 50 mg Un matt 100 mg 9-27 by mouth ity of tablet 19:28: at [place] [address] bedtime. Medical Branch hydralAZINE 2021-0 Yes 25mg [...] 100 mg 04 (two) Medical tablet times [place] daily. amLODIPine 2021-0 Yes 10mg Take 10 mg U nivers (NORVASC) 9-27 by mouth ity of 10 mg 19:28: daily. [place] tablet 04 Medical Branch clonazePAM 0 Yes 1mg Take 1 mg Un matt (KLONOPIN) 9-27 by mouth ity o f 1 mg tablet 19:28: at [place] [address] bedtime. Medical Branch traZODone 2021-0 Yes 50mg Take 50 mg Un matt 100 mg 9-27 by mouth ity of tablet 19:28: at [place] [address] bedtime. Medical Branch hydralAZINE 2021-0 Yes 25mg [...] o f 1 mg tablet 19:28: at [place] [address] bedtime. Medical Branch traZODone 2021-0 Yes 50mg Take 50 mg Un matt 100 mg 9-27 by mouth ity of tablet 19:28: at [place] [address] bedtime. Medical Branch hydralAZINE 2021-0 Yes 25mg [...] o f 1 mg tablet 19:28: at [place] [address] bedtime. Medical Branch traZODone 2021-0 Yes 50mg Take 50 mg Un matt 100 mg 9- by mouth ity of tablet 19:28: at [place] [address] bedtime. Medical Branch hydralAZINE 2021-0 Yes 25mg [...] 100 mg 04 (two) Medical tablet times [place] daily. amLODIPine 2021-0 Yes 10mg Take 10 mg U nivers (NORVASC) 9-27 by mouth ity of 10 mg 19:28: daily. [place] tablet 04 Medical Branch clonazePAM 2021-0 Yes 1mg Take 1 mg Un matt (KLONOPIN) 9-27 by mouth ity o f 1 mg tablet 19:28: at [place] [address] bedtime. Medical Branch traZODone 2021-0 Yes 50mg Take 50 mg Un matt 100 mg 9-27 by mouth ity of tablet 19:28: at [place] [address] bedtime. Medical Branch hydralAZINE 2021-0 Yes 25mg [...] 100 mg 04 (two) Medical tablet times [place] daily. amLODIPine 2021-0 Yes 10mg Take 10 mg U nivers (NORVASC) 9-27 by mouth ity of 10 mg 19:28: daily. [place] tablet 04 Medical Branch clonazePAM 2021-0 Yes 1mg Take 1 mg Un matt (KLONOPIN) 9-27 by mouth ity o f 1 mg tablet 19:28: at [place] [address] bedtime. Medical Branch traZODone 2021-0 Yes 50mg Take 50 mg Un matt 100 mg 9-27 by mouth ity of tablet 19:28: at [place] [address] bedtime. Medical Branch hydralAZINE 2021-0 Yes 25mg [...] o f 1 mg tablet 19:28: at [place] [address] bedtime. Medical Branch traZODone 2021-0 Yes 50mg Take 50 mg Un matt 100 mg 9-27 by mouth ity of tablet 19:28: at [place] [address] bedtime. Medical Branch hydralAZINE 2021-0 Yes 25mg [...] 100 mg 04 (two) Medical tablet times [place] daily. amLODIPine 2021-0 Yes 10mg Take 10 mg U nivers (NORVASC) 9-27 by mouth ity of 10 mg 19:28: daily. [place] tablet 04 Medical Branch clonazePAM 2021-0 Yes 1mg Take 1 mg Un matt (KLONOPIN) 9-27 by mouth ity o f 1 mg tablet 19:28: at [place] [address] bedtime. Medical Branch traZODone 2021-0 Yes 50mg Take 50 mg Un matt 100 mg 9-27 by mouth ity of tablet 19:28: at [place] [address] bedtime. Medical Branch hydralAZINE 2-0 Yes 25mg [...] 100 mg 04 (two) Medical tablet times [place] daily. amLODIPine Yes 10mg Take 10 mg U nivers (NORVASC) - by mouth ity of 10 mg 19:28: daily. [place] tablet 04 Medical Branch clonazePAM 0 Yes 1mg Take 1 mg Un matt (KLONOPIN) 02-16 by mouth ity o f 1 mg tablet 19:28: at [place] [address] bedtime. Medical Branch traZODone Yes 50mg Take 50 mg Un matt 100 mg 02-16 by mouth ity of tablet 19:28: at [place] [address] bedtime. Medical Branch cefpodoxime 2021- No [id number] 200mg Take 1 [facility] 200 mg 02-16 tablet by ity of tablet 00:00: 04:59 mouth in [place] 00 :00 the Medical morning Branch and 1 tablet in the evening. Do all this for 3 days. cefpodoxime 2021- No [id number] 200mg Take 1 [facility] 200 mg 02-16 tablet by ity of tablet 00:00: 04:59 mouth in [place] 00 :00 the Medical morning Branch and 1 tablet in the evening. Do all this for 3 days. haloperidol 2021- No 2mg 2 mg, Slow Univers lactate 02-15 IV Push, ity of (HALDOL) 09:00: 09:12 ONCE, 1 [place] injection 2 00 :00 dose, On Medi porifrio mg Mon Branch 02/15/22 at 0400, Routine [...] First dose [place] mg 00 on [facility] 02/13/22 at Branch 1200, Until Discontinu ed, Routine tiZANidine Yes 4mg 4 mg, Univer s (ZANAFLEX) 02-12 Oral, Q8H, ity of tablet 4 mg 19:00: First dose [place] 00 on Tue [facility] 02/12/22 at Branch 1400, Until Discontinu ed, Routine HYDROmorpho Yes 4mg 4 mg, Unive rs ne 02-12 Oral, ity of (DILAUDID) 17:37: Q6HPRN, [place] tablet 4 mg 07 Starting [facility] porfirio on Tue02/12/22 at 1237, Until Discontinu ed, Routine, Pain (scale 4-6) morpHINE (2 2021- No 2mg 2 mg, Slow Univers mg/mL) 02-12 IV Push, ity of injection 2 17:36: 20:36 Q6HPRN, [place] mg 46 :24 Starting Medical on Tue [place] 02/12/22 at 1236, Until 02/14/22 at 1536, [...] [place] mg 37 Starting Medical on [facility] Branch 02/11/22 at 1618, Until Discontinu ed, Routine, SBP > 170 nystatin-tr 2021-0 Yes Topical, Un matt iamcinolone 02-11 TID, First it y of (MYCOLOG) 19:00: dose on [place] cream 00 [facility] Medical 02/11/22 at Branch 1400, Until Discontinu ed, Routine busPIRone 2021-0 Yes 30mg 30 mg, Univer s (BUSPAR) 02-11 Oral, BID, ity o f tablet 30 18:00: First dose [place] mg 00 on [facility] Medical 02/11/22 at Branch 1300, Until Discontinu ed, Routine raltegravir 2021-0 Yes 400mg 400 mg, Un matt (ISENTRESS) 02-11 Oral, BID, it y of tablet 400 18:00: First dose [place] mg 00 on [facility] Medical 02/11/22 at Branch 1300, Until Discontinu ed, JOE metoprolol 2021-0 Yes 100mg 100 mg, Uni vers tartrate 02-11 Oral, BID, ity o f (LOPRESSOR) 18:00: First dose [place] tablet 100 00 on [facility] Medical mg 02/11/22 at Branch 1300, Until Discontinu ed, Routine lisinopriL 2021-0 Yes 40mg 40 mg, Unive rs (PRINIVIL,Z 02-11 Oral, BID, it y of ESTRIL) 18:00: First [place] tablet 40 00 on [facility] Medical mg 02/11/22 at Branch 1300, Until Discontinu ed, Routine emtricitabi 2021-0 Yes 1{tbl} 1 tablet, [facility] ne-tenofovi 02-11 Oral, ity of r alafen 18:00: DAILY, [place] (DESCOVY) 00 First dose Medi porfirio tablet 1 on [facility] tablet 02/11/22 at 1300, Until Discontinu ed, Routine ipratropium 2021-0 Yes .5mg 0.5 mg, Uni vers (ATROVENT) 02-11 Inhalation ity of 0.02 % 17:57: , QIDPRN, [place] nebulizer 10 Starting Medica l solution on [facility] Branch 0.5 mg 02/11/22 at 1257, Until Discontinu ed, Routine, Wheezing, Shortness of Breath amLODIPine Yes 10mg 10 mg, Unive rs (NORVASC) 02-11 Oral, ity of tablet 10 17:30: DAILY, [place] mg 00 First dose Medical (after Branch last modificati on) on [facility] 02/11/22 at 1230, Until Discontinu ed, Routine hydrALAZINE 2021- No 25mg 25 mg, Uni vers (APRESOLINE 02-11 Oral, ity of ) tablet 25 17:30: 12:54 DAILY, [place] mg 00 :55 First dose Medical (after Branch last modificati on) on [facility] 02/11/22 at 1230, Until Discontinu ed, Routine HYDROcodone 2021- No 1{tbl} 1 tablet, Univers -acetaminop 02-11 Oral, ity of hen (NORCO 14:11: 17:37 Q6HPRN, [place] 5) 5-325 mg 03 :24 Starting Medi porfirio tablet 1 on [facility] Branch tablet 02/11/22 at 0911, Until Tue02/12/22 at 1237, Routine, Pain (scale 7-10) melatonin Yes 3mg 3 mg, Univers (MELATIN) 02-11 Oral, ity of tablet 3 mg 14:08: QHSPRN, [place] 17 Starting Medical on [facility] Branch 02/11/22 at 0908, Until Discontinu ed, Routine, Insomnia acetaminoph 2021- No 1{tbl} 1 tablet, Univers en-codeine 02-11 Oral, ity of (TYLENOL 14:06: 17:37 Q6HPRN, [place] #3) 300-30 19 :24 Starting Medic al mg tablet 1 on [facility] Branch tablet 02/11/22 at 0906, Until Tue02/12/22 at 1237, Routine, Pain (scale 4-6) sennosides- Yes 1{tbl} 1 tablet, Univers docusate 02-11 Oral, ity of sodium 14:06: QDAILYPRN, [place] (SENOKOT-S) 09 Starting Medi porfirio 8.6-50 mg on [facility] per tablet 02/11/22 at 1 tablet 0906, [...] ity of ) 25 mg 09:10: daily. [address] amLODIPine 0 Yes 10mg Take 10 mg U nivers (NORVASC) 02-11 by mouth ity of 10 mg 09:10: daily. [facility] 54 [facility] Branch piperacilli 2021-0 2021- No 3.375g 3.375 [...] of therapy: 72 hours iopamidol 2021- No [id number] 60mL 60 mL, Univers (ISOVUE 02-11 Intravenou [...] 00 :00 dose, On Medi porfirio mg [facility] Branch 02/11/22 at 0300, JOE ondansetron 2021- No 4mg 4 mg, Slow Univers (ZOFRAN 02-11 IV Push, ity of (PF)) 05:45: 05:08 ONCE, 1 [place] injection 4 00 :00 dose, On Medi porfirio mg [facility] Branch 02/11/22 at 0045, JOE acetaminoph 2021- No 975mg 975 mg, U nivers en 02-11 Oral, ity of (TYLENOL) 05:15: 04:19 ONCE, 1 [place] tablet 975 00 :00 dose, On Medic al mg [facility] Branch 02/11/22 at 0015, JOE emtricitabi 0 Yes [id number] Take one Univers ne-tenofovi 9-12 po daily ity of r alafen 00:00: [place] (DESCOVY) 00 Medical tablet Branch emtricitabi 0 Yes [id number] Take one Univers ne-tenofovi 9-12 po daily ity of r alafen 00:00: [place] (DESCOVY) 00 Medical tablet Branch emtricitabi 0 Yes [id number] Take one Univers ne-tenofovi 9-12 po daily ity of r alafen 00:00: [place] (DESCOVY) 00 Medical tablet Branch emtricitabi Yes [id number] Take one Univers ne-tenofovi 9-12 po daily ity of r alafen 00:00: [place] (DESCOVY) 00 Medical tablet Branch emtricitabi Yes [id number] Take one Univers ne-tenofovi 9-12 po daily ity of r alafen 00:00: [place] (DESCOVY) 00 Medical tablet Branch emtricitabi Yes [id number] Take one Univers ne-tenofovi 9-12 po daily ity of r alafen 00:00: [place] (DESCOVY) 00 Medical tablet Branch emtricitabi Yes [id number] Take one Univers ne-tenofovi 9-12 po daily ity of r alafen 00:00: [place] (DESCOVY) 00 Medical tablet Branch emtricitabi Yes [id number] Take one Univers ne-tenofovi 9-12 po daily ity of r alafen 00:00: [place] (DESCOVY) 00 Medical tablet Branch emtricita Yes [id number] Take one Univers ne-tenofovi 9-12 po daily ity of r alafen 00:00: [place] (DESCOVY) 00 Medical tablet Branch emtricitabi Yes [id number] Take one Univers ne-tenofovi 9-12 po daily ity of r alafen 00:00: [place] (DESCOVY) 00 Medical tablet Branch emtricita Yes [id number] Take one Univers ne-tenofovi 9-12 po daily ity of r alafen 00:00: [place] (DESCOVY) 00 Medical tablet Branch emtricitabi Yes [id number] Take one Univers ne-tenofovi 9-12 po daily ity of r alafen 00:00: [place] (DESCOVY) 00 Medical tablet Branch emtricitabi Yes [id number] Take one Univers ne-tenofovi 9-12 po daily ity of r alafen 00:00: [place] (DESCOVY) 00 Medical tablet Branch emtricitabi Yes [id number] Take one Univers ne-tenofovi 9-12 po daily ity of r alafen 00:00: [place] (DESCOVY) 00 Medical tablet Branch emtricitabi 0 Yes [id number] Take one Univers ne-tenofovi 9-12 po daily ity of r alafen 00:00: [place] (DESCOVY) 00 Medical tablet Branch emtricitabi 0 Yes [id number] Take one Univers ne-tenofovi 9-12 po daily ity of r alafen 00:00: [place] (DESCOVY) 00 Medical tablet Branch emtricitabi 0 Yes [id number] Take one Univers ne-tenofovi 9-12 po daily ity of r alafen 00:00: [place] (DESCOVY) 00 Medical tablet Branch emtricitabi 0 2023- No [id number] Take one Univers ne-tenofovi 9-12 04-04 po daily ity of r alafen 00:00: 00:00 [place] (DESCOVY) 00 :00 Medical tablet Branch emtricitabi 0 2023- No [id number] Take one Univers ne-tenofovi 9-12 04-04 po daily ity of r alafen 00:00: 00:00 [place] (DESCOVY) 00 :00 Medical tablet Branch naproxen 2021-0 Yes [id number] 500mg Take 1 U nivers (NAPROSYN) 7-24 tablet by ity of 500 mg 00:00: mouth in [place] tablet 00 the Medical morning Branch and 1 tablet in the evening. Take with meals. methocarbam 2021-0 Yes [id number] 500mg Take 1 Univers oL 500 mg 7-24 tablet by ity o f tablet 00:00: mouth 4 [place] ([facility]) Medical times Branch daily. naproxen 2021-0 Yes [id number] 500mg Take 1 U nivers (NAPROSYN) 7-24 tablet by ity of 500 mg 00:00: mouth in [place] tablet 00 the Medical morning Branch and 1 tablet in the evening. Take with meals. methocarbam 2021-0 Yes [id number] 500mg Take 1 Univers oL 500 mg 7-24 tablet by ity o f tablet 00:00: mouth 4 ([facility]) Medical times Branch daily. naproxen 2021-0 Yes [id number] 500mg Take 1 U nivers (NAPROSYN) 7-24 tablet by ity of 500 mg 00:00: mouth in [place] tablet 00 the Medical morning Branch and 1 tablet in the evening. Take with meals. methocarbam 2021-0 Yes [id number] 500mg Take 1 Univers oL 500 mg 7-24 tablet by ity o f tablet 00:00: mouth 4 [place] 00 (four) Medical times [place] daily. naproxen 2021- No [id number] 500mg Take 1 Univers (NAPROSYN) 7-24 10-14 tablet by ity of 500 mg 00:00: 00:00 mouth in [place] tablet 00 :00 the Medical morning Branch and 1 tablet in the evening. Take with meals. methocarbam 2021-2021- No [id number] 500mg Take 1 [facility] oL 500 mg 7-24 10-14 tablet by ity of tablet 00:00: 00:00 mouth 4 [place] 00 :00 (four) Medical times [place] daily. naproxen 2021-2021- No [id number] 500mg Take 1 Univers (NAPROSYN) 7-24 10-14 tablet by ity of 500 mg 00:00: 00:00 mouth in [place] tablet 00 :00 the Medical morning Branch and 1 tablet in the evening. Take with meals. methocarbam 2021-2021- No [id number] 500mg Take 1 [facility] oL 500 mg 7-24 10-14 tablet by ity of tablet 00:00: 00:00 mouth 4 [place] 00 :00 (four) Medical times [place] daily. esomeprazol 2021- No 40mg Take 40 [...] traZODONE 2021- No Take by [facility] ers (DESYREL) 11-20 mouth at ity o f 10 mg/mL 09:10: 00:00 [place]time. [place] oral 28 :00 Medical suspension Branch hydralAZINE Yes 25mg Take 25 mg Univers (APRESOLINE 11-20 by mouth ity of ) 25 mg 08:47: daily. [place] tablet 47 Medical Branch cephALEXin 2021- No [id number] 500mg Take 1 Univers (KEFLEX) 10-24 capsule [...] 7-10). Indication s: acute pain buPROPion Yes [id number] 150mg Take 1 U nivers XL 4-12 tablet by ity of (WELLBUTRIN 00:00: mouth [place] XL) 150 mg 00 daily. Medical 24 hr Branch tablet busPIRone Yes [id number] 30mg Take 1 Un matt 30 mg 4-12 tablet by ity of tablet 00:00: mouth 2 [place] 00 (two) Medical times Branch daily. SERTraline Yes [id number] 200mg Take 2 Univers 100 mg 4-12 tablets by ity of tablet 00:00: mouth [place] 00 daily. Medical Branch buPROPion Yes [id number] 150mg Take 1 U nivers XL 4-12 tablet by ity of (WELLBUTRIN 00:00: mouth [place] XL) 150 mg 00 daily. Medical 24 hr Branch tablet busPIRone Yes [id number] 30mg Take 1 Un matt 30 mg 4-12 tablet by ity of tablet 00:00: mouth 2 [place] 00 (two) Medical times Branch daily. SERTraline Yes [id number] 200mg Take 2 Univers 100 mg 4-12 tablets by ity of tablet 00:00: mouth [place] 00 daily. Medical Branch buPROPion 2021-0 Yes [id number] 150mg Take 1 U nivers XL 4-12 tablet by ity of (WELLBUTRIN 00:00: mouth [place] XL) 150 mg 00 daily. Medical 24 hr Branch tablet busPIRone 2021-0 Yes [id number] 30mg Take 1 Un matt 30 mg 4-12 tablet by ity of tablet 00:00: mouth 2 [place] 00 (two) Medical times Branch daily. SERTraline 2021-0 Yes [id number] 200mg Take 2 Univers 100 mg 4-12 tablets by ity of tablet 00:00: mouth [place] 00 daily. Medical Branch buPROPion 2021-0 Yes [id number] 150mg Take 1 U nivers XL 4-12 tablet by ity of (WELLBUTRIN 00:00: mouth [place] XL) 150 mg 00 daily. Medical 24 hr Branch tablet busPIRone 2021-0 Yes [id number] 30mg Take 1 Un matt 30 mg 4-12 tablet by ity of tablet 00:00: mouth 2 (two) Medical times Branch daily. SERTraline 2021-0 Yes [id number] 200mg Take 2 [facility] 100 mg 4-12 tablets by ity of tablet 00:00: mouth [place] 00 daily. Medical Branch buPROPion 2021-0 Yes [id number] 150mg Take 1 U nivers XL 4-12 tablet by ity of (WELLBUTRIN 00:00: mouth [place] XL) 150 mg 00 daily. Medical 24 hr Branch tablet busPIRone 2021-0 Yes [id number] 30mg Take 1 Un matt 30 mg 4-12 tablet by ity of tablet 00:00: mouth 2 [place] 00 (two) Medical times Branch daily. SERTraline 2021-0 Yes [id number] 200mg Take 2 Univers 100 mg 4-12 tablets by ity of tablet 00:00: mouth [place] 00 daily. Medical Branch buPROPion 2021-0 Yes [id number] 150mg Take 1 U nivers XL 4-12 tablet by ity of (WELLBUTRIN 00:00: mouth [place] XL) 150 mg 00 daily. Medical 24 hr Branch tablet busPIRone 2021-0 Yes [id number] 30mg Take 1 Un matt 30 mg 4-12 tablet by ity of tablet 00:00: mouth 2 [place] 00 (two) Medical times Branch daily. SERTraline 2021-0 Yes [id number] 200mg Take 2 Univers 100 mg 4-12 tablets by [facility] tablet 00:00: mouth [place] 00 daily. [facility] buPROPion 2021-0 Yes [id number] 150mg Take 1 U nivers XL 4-12 tablet by [facility]y of (WELLBUTRIN 00:00: mouth [place] XL) 150 mg 00 daily. Medical 24 hr Branch tablet busPIRone 2021-0 Yes [id number] 30mg Take 1 Un matt 30 mg 4-12 tablet by [facility] of tablet 00:00: mouth 2 [place] 00 (two) Medical times Branch daily. SERTraline 2021-0 Yes [id number] 200mg Take 2 [facility] 100 mg 4-12 tablets by [facility] of tablet 00:00: mouth [place] 00 daily. [facility] buPROPion 2021-0 Yes [id number] 150mg Take 1 [facility] nivers XL 4-12 tablet by [facility]y of (WELLBUTRIN 00:00: mouth [place] XL) 150 mg 00 daily. Medical 24 hr Branch tablet busPIRone 2021-0 Yes [id number] 30mg Take 1 Un matt 30 mg 4-12 tablet by [facility] of tablet 00:00: mouth 2 [place] 00 (two) Medical times Branch daily. SERTraline 2021-0 Yes [id number] 200mg Take 2 [facility] 100 mg 4-12 tablets by [facility] of tablet 00:00: mouth [place] 00 daily. Medical [facility] buPROPion 2021-0 Yes [id number] 150mg Take 1 [facility] nivers XL 4-12 tablet by [facility]y of (WELLBUTRIN 00:00: mouth [place] XL) 150 mg 00 daily. Medical 24 hr Branch tablet busPIRone 2021-0 Yes [id number] 30mg Take 1 Un matt 30 mg 4-12 tablet by [facility] of tablet 00:00: mouth 2 [place] 00 (two) Medical times Branch daily. SERTraline 2021-0 Yes [id number] 200mg Take 2 [facility] 100 mg 4-12 tablets by [facility] of tablet 00:00: mouth [place] 00 daily. [facility] buPROPion 2021-0 Yes [id number] 150mg Take 1 [facility] nivers XL 4-12 tablet by [facility]y of (WELLBUTRIN 00:00: mouth [place] XL) 150 mg 00 daily. Medical 24 hr Branch tablet busPIRone 2021-0 Yes [id number] 30mg Take 1 Un matt 30 mg 4-12 tablet by [facility] of tablet 00:00: mouth 2 [place] 00 (two) Medical times Branch daily. SERTraline 2021-0 Yes [id number] 200mg Take 2 [facility] 100 mg 4-12 tablets by [facility] of tablet 00:00: mouth [place] 00 daily. [facility] buPROPion 2021-0 Yes [id number] 150mg Take 1 [facility] nivers XL 4-12 tablet by [facility]y of (WELLBUTRIN 00:00: mouth [place] XL) 150 mg 00 daily. Medical 24 hr Branch tablet busPIRone 2021-0 Yes [id number] 30mg Take 1 Un matt 30 mg 4-12 tablet by [facility] of tablet 00:00: mouth 2 [place] 00 (two) Medical times Branch daily. SERTraline 0 Yes [id number] 200mg Take 2 [facility] 100 mg 4-12 tablets by [facility] of tablet 00:00: mouth [place] 00 daily. Medical [facility] buPROPion 2021-0 Yes [id number] 150mg Take 1 [facility] nivers XL 4-12 tablet by [facility]y of (WELLBUTRIN 00:00: mouth [place] XL) 150 mg 00 daily. Medical 24 hr Branch tablet busPIRone 2021-0 Yes [id number] 30mg Take 1 Un matt 30 mg 4-12 tablet by [facility] of tablet 00:00: mouth 2 [place] 00 (two) Medical times Branch daily. SERTraline 2021-0 Yes [id number] 200mg Take 2 [facility] 100 mg 4-12 tablets by [facility] of tablet 00:00: mouth [place] 00 daily. Medical [facility] buPROPion 2021-0 Yes [id number] 150mg Take 1 [facility] nivers XL 4-12 tablet by [facility]y of (WELLBUTRIN 00:00: mouth [place] XL) 150 mg 00 daily. Medical 24 hr Branch tablet busPIRone 2021-0 Yes [id number] 30mg Take 1 Un matt 30 mg 4-12 tablet by [facility] of tablet 00:00: mouth 2 [place] 00 (two) Medical times Branch daily. SERTraline 2021-0 Yes [id number] 200mg Take 2 [facility] 100 mg 4-12 tablets by [facility] of tablet 00:00: mouth [place] 00 daily. Medical [facility] buPROPion 2021-0 Yes [id number] 150mg Take 1 [facility] nivers XL 4-12 tablet by [facility] of (WELLBUTRIN 00:00: mouth [place] XL) 150 mg 00 daily. Medical 24 hr Branch tablet busPIRone 2021-0 Yes [id number] 30mg Take 1 Un matt 30 mg 4-12 tablet by [facility] of tablet 00:00: mouth 2 [place] 00 (two) Medical times Branch daily. SERTraline 2021-0 Yes [id number] 200mg Take 2 [facility] 100 mg 4-12 tablets by [facility] of tablet 00:00: mouth [place] 00 daily. Medical [facility] buPROPion 0 Yes [id number] 150mg Take 1 [facility] nivers XL 4-12 tablet by [facility]y of (WELLBUTRIN 00:00: mouth [place] XL) 150 mg 00 daily. Medical 24 hr Branch tablet busPIRone 0 Yes [id number] 30mg Take 1 Un matt 30 mg 4-12 tablet by [facility] of tablet 00:00: mouth 2 00 (two) Medical times Branch daily. SERTraline 0 Yes [id number] 200mg Take 2 [facility] 100 mg 4-12 tablets by [facility] of tablet 00:00: mouth [place] 00 daily. Medical [facility] buPROPion 0 Yes [id number] 150mg Take 1 [facility] nivers XL 4-12 tablet by [facility]y of (WELLBUTRIN 00:00: mouth [place] XL) 150 mg 00 daily. Medical 24 hr Branch tablet busPIRone 2021-0 Yes [id number] 30mg Take 1 Un matt 30 mg 4-12 tablet by [facility] of tablet 00:00: mouth 2 00 (two) Medical times Branch daily. SERTraline 2021-0 Yes [id number] 200mg Take 2 [facility] 100 mg 4-12 tablets by [facility] of tablet 00:00: mouth [place] 00 daily. Medical [facility] buPROPion 2021-0 Yes [id number] 150mg Take 1 [facility] nivers XL 4-12 tablet by [facility]y of (WELLBUTRIN 00:00: mouth [place] XL) 150 mg 00 daily. Medical 24 hr Branch tablet busPIRone 2021-0 Yes [id number] 30mg Take 1 Un matt 30 mg 4-12 tablet by [facility] of tablet 00:00: mouth 2 [place] 00 (two) Medical times Branch daily. SERTraline 2022-0 Yes [id number] 200mg Take 2 [facility] 100 mg 4-12 tablets by [facility] of tablet 00:00: mouth [place] 00 daily. Medical [facility] buPROPion 2021-0 Yes [id number] 150mg Take 1 [facility] nivers XL 4-12 tablet by [facility] of (WELLBUTRIN 00:00: mouth [place] XL) 150 mg 00 daily. Medical 24 hr Branch tablet busPIRone 2021-0 Yes [id number] 30mg Take 1 Un matt 30 mg 4-12 tablet by [facility] of tablet 00:00: mouth 2 [place] 00 (two) Medical times Branch daily. SERTraline 0 Yes [id number] 200mg Take 2 [facility] 100 mg 4-12 tablets by [facility] of tablet 00:00: mouth [place] 00 daily. Medical [facility] buPROPion 0 Yes [id number] 150mg Take 1 [facility] nivers XL 4-12 tablet by ity of (WELLBUTRIN 00:00: mouth [place] XL) 150 mg 00 daily. Medical 24 hr Branch tablet busPIRone 0 Yes [id number] 30mg Take 1 Un matt 30 mg 4-12 tablet by [facility] of tablet 00:00: mouth 2 [place] 00 (two) Medical times Branch daily. SERTraline 0 Yes [id number] 200mg Take 2 [facility] 100 mg 4-12 tablets by [facility] of tablet 00:00: mouth [place] 00 daily. Medical [facility] buPROPion 0 Yes [id number] 150mg Take 1 [facility] nivers XL 4-12 tablet by [facility]y of (WELLBUTRIN 00:00: mouth [place] XL) 150 mg 00 daily. Medical 24 hr Branch tablet busPIRone 2021-0 Yes [id number] 30mg Take 1 Un matt 30 mg 4-12 tablet by [facility] of tablet 00:00: mouth 2 [place] 00 (two) Medical times Branch daily. SERTraline 0 Yes [id number] 200mg Take 2 [facility] 100 mg 4-12 tablets by [facility] of tablet 00:00: mouth [place] 00 daily. Medical [facility] buPROPion 0 Yes [id number] 150mg Take 1 [facility] nivers XL 4-12 tablet by ity of (WELLBUTRIN 00:00: mouth [place] XL) 150 mg 00 daily. Medical 24 hr Branch tablet busPIRone 2021-0 Yes [id number] 30mg Take 1 Un matt 30 mg 4-12 tablet by [facility] of tablet 00:00: mouth 2 [place] 00 (two) Medical times Branch daily. SERTraline 2021-0 Yes [id number] 200mg Take 2 [facility] 100 mg 4-12 tablets by [facility] of tablet 00:00: mouth [place] 00 daily. Medical [facility] buPROPion 2021-0 Yes [id number] 150mg Take 1 [facility] nivers XL 4-12 tablet by [facility] of (WELLBUTRIN 00:00: mouth [place] XL) 150 mg 00 daily. Medical 24 hr Branch tablet busPIRone 0 Yes [id number] 30mg Take 1 Un matt 30 mg 4-12 tablet by [facility] of tablet 00:00: mouth 2 [place] 00 (two) Medical times Branch daily. SERTraline 2021-0 Yes [id number] 200mg Take 2 [facility] 100 mg 4-12 tablets by [facility] of tablet 00:00: mouth [place] 00 daily. Medical [facility] buPROPion 0 Yes [id number] 150mg Take 1 [facility] nivers XL 4-12 tablet by ity of (WELLBUTRIN 00:00: mouth [place] XL) 150 mg 00 daily. Medical 24 hr Branch tablet busPIRone 2021-0 Yes [id number] 30mg Take 1 Un matt 30 mg 4-12 tablet by [facility] of tablet 00:00: mouth 2 [place] 00 (two) Medical times Branch daily. SERTraline 0 Yes [id number] 200mg Take 2 [facility] 100 mg 4-12 tablets by [facility] of tablet 00:00: mouth [place] 00 daily. Medical [facility] buPROPion 0 Yes [id number] 150mg Take 1 [facility] nivers XL 4-12 tablet by ity of (WELLBUTRIN 00:00: mouth [place] XL) 150 mg 00 daily. Medical 24 hr Branch tablet busPIRone 2021-0 Yes [id number] 30mg Take 1 Un matt 30 mg 4-12 tablet by [facility] of tablet 00:00: mouth 2 [place] 00 (two) Medical times Branch daily. SERTraline 2021-0 Yes [id number] 200mg Take 2 [facility] 100 mg 4-12 tablets by [facility] of tablet 00:00: mouth [place] 00 daily. Medical Branch raltegravir 2021-0 Yes [id number] 400mg Take 1 [facility] (ISENTRESS) 3-28 tablet by [facility]y of 400 mg 00:00: mouth 2 [place] tablet 00 (two) Medical times Branch daily. raltegravir 2022-0 Yes [id number] 400mg Take 1 [facility] (ISENTRESS) 3-28 tablet by [facility] of 400 mg 00:00: mouth 2 [place] tablet 00 (two) Medical times Branch daily. raltegravir 2022-0 Yes [id number] 400mg Take 1 [facility] (ISENTRESS) 3-28 tablet by [facility]y of 400 mg 00:00: mouth 2 [place] tablet 00 (two) Medical times Branch daily. raltegravir 2022-0 Yes [id number] 400mg Take 1 [facility] (ISENTRESS) 3-28 tablet by [facility]y of 400 mg 00:00: mouth 2 [place] tablet 00 (two) Medical times Branch daily. raltegravir 2022-0 Yes [id number] 400mg Take 1 [facility] (ISENTRESS) 3-28 tablet by [facility] of 400 mg 00:00: mouth 2 [place] tablet 00 (two) Medical times Branch daily. raltegravir 2022-0 Yes [id number] 400mg Take 1 [facility] (ISENTRESS) 3-28 tablet by [facility] of 400 mg 00:00: mouth 2 [place] tablet 00 (two) Medical times Branch daily. raltegravir 2022-0 Yes [id number] 400mg Take 1 [facility] (ISENTRESS) 3-28 tablet by [facility]y of 400 mg 00:00: mouth 2 [place] tablet 00 (two) Medical times Branch daily. raltegravir 2022-0 Yes [id number] 400mg Take 1 [facility] (ISENTRESS) 3-28 tablet by ity of 400 mg 00:00: mouth 2 [place] tablet 00 (two) Medical times Branch daily. raltegravir 2022-0 Yes [id number] 400mg Take 1 [facility] (ISENTRESS) 3-28 tablet by ity of 400 mg 00:00: mouth 2 [place] tablet 00 (two) Medical times Branch daily. raltegravir 2022-0 Yes [id number] 400mg Take 1 [facility] (ISENTRESS) 3-28 tablet by [facility]y of 400 mg 00:00: mouth 2 [place] tablet 00 (two) Medical times Branch daily. raltegravir 2022-0 Yes [id number] 400mg Take 1 [facility] (ISENTRESS) 3-28 tablet by ity of 400 mg 00:00: mouth 2 [place] tablet 00 (two) Medical times Branch daily. raltegravir 2-0 Yes [id number] 400mg Take 1 [facility] (ISENTRESS) 3-28 tablet by ity of 400 mg 00:00: mouth 2 [place] tablet 00 (two) Medical times Branch daily. raltegravir 2021-0 Yes [id number] 400mg Take 1 [facility] (ISENTRESS) 3-28 tablet by ity of 400 mg 00:00: mouth 2 [place] tablet 00 (two) Medical times Branch daily. raltegravir 2021-0 Yes [id number] 400mg Take 1 [facility] (ISENTRESS) 3-28 tablet by ity of 400 mg 00:00: mouth 2 [place] tablet 00 (two) Medical times Branch daily. raltegravir 2021-0 Yes [id number] 400mg Take 1 [facility] (ISENTRESS) 3-28 tablet by ity of 400 mg 00:00: mouth 2 [place] tablet 00 (two) Medical times Branch daily. raltegravir 2021-0 Yes [id number] 400mg Take 1 [facility] (ISENTRESS) 3-28 tablet by ity of 400 mg 00:00: mouth 2 [place] tablet 00 (two) Medical times Branch daily. raltegravir 2021-0 Yes [id number] 400mg Take 1 [facility] (ISENTRESS) 3-28 tablet by ity of 400 mg 00:00: mouth 2 [place] tablet 00 (two) Medical times Branch daily. raltegravir 2021-0 Yes [id number] 400mg Take 1 [facility] (ISENTRESS) 3-28 tablet by ity of 400 mg 00:00: mouth 2 [place] tablet 00 (two) Medical times Branch daily. raltegravir 2-0 Yes [id number] 400mg Take 1 [facility] (ISENTRESS) 3-28 tablet by ity of 400 mg 00:00: mouth 2 [place] tablet 00 (two) Medical times Branch daily. raltegravir 2022-0 Yes [id number] 400mg Take 1 [facility] (ISENTRESS) 3-28 tablet by ity of 400 mg 00:00: mouth 2 [place] tablet 00 (two) Medical times Branch daily. raltegravir 2022-0 2023- No [id number] 400mg Take 1 [facility] (ISENTRESS) 3-28 05-08 tablet by it y of 400 mg 00:00: 00:00 mouth 2 [place] tablet 00 :00 (two) Medical times Branch daily. LORazepam 1 2021- No [id number] 1mg Take 1 [facility] mg tablet 08-10 [...] times a tablet day. emtricitabi 2021- No [id number] Take one [facility] ne-tenofovi -20 -12 po daily ity of r alafen 00:00: 00:00 [place] (DESCOVY) 00 :00 Medical tablet Branch metoprolol Yes [id number] Take 1 [facility] tartrate 7-26 [facility] (Lopressor) 00:00: (100 mg 100 MG 00 total) by tablet mouth 2 (two) times a day AND 0.5 tablets (50 mg total) every night. metoprolol Yes [id number] Take 1 [facility] tartrate 7-26 [facility] [...] area in groin) hydrALAZINE 0 Yes 50mg Q.[id number] Take 50 mg [facility] (APRESOLINE 7-19 [id number] by mouth [facility] ) 50 MG [...] area in groin) hydrALAZINE 0 Yes 50mg Q.[id number] Take 50 mg [facility] (APRESOLINE 7-19 [id number] by mouth [facility] ) 50 MG [...] (affected area in groin) hydrALAZINE Yes 50mg Q.[id number] Take 50 mg [facility] (APRESOLINE 7-19 [id number] [facility] mouth [facility] ) 50 MG [...] (affected area in groin) hydrALAZINE Yes 50mg Q.[id number] Take 50 mg [facility] (APRESOLINE 7-19 [id number] by mouth [facility] ) 50 MG [...] area in groin) hydrALAZINE 0 Yes 50mg Q.[id number] Take 50 mg [facility] (APRESOLINE 7-19 [id number] [facility] mouth [facility] ) 50 MG [...] area in groin) hydrALAZINE 0 Yes 50mg Q.[id number] Take 50 mg [facility] (APRESOLINE 7-19 [id number] by mouth [facility] ) 50 MG [...] (affected area in groin) hydrALAZINE Yes 50mg Q.[id number] Take 50 mg [facility] (APRESOLINE 7-19 [id number] by mouth [facility] ) 50 MG [...] area in groin) hydrALAZINE 2020-0 Yes 50mg Q.[id number] Take 50 mg [facility] (APRESOLINE 7-19 [id number] [facility] mouth 3 [facility] ) 50 MG [...] area in groin) hydrALAZINE 0 Yes 50mg Q.[id number] Take 50 mg [facility] (APRESOLINE 7-19 [id number] by mouth [facility] ) 50 MG [...] (affected area in groin) hydrALAZINE Yes 50mg Q.[id number] Take 50 mg [facility] (APRESOLINE 7-19 [id number] [facility] mouth 3 [facility] ) 50 MG [...] area in groin) hydrALAZINE 0 Yes 50mg Q.[id number] Take 50 mg [facility] (APRESOLINE 7-19 [id number] [facility] mouth [facility] ) 50 MG [...] area in groin) hydrALAZINE 0 Yes 50mg Q.[id number] Take 50 mg [facility] (APRESOLINE 7-19 [id number] by mouth [facility] ) 50 MG [...] (affected area in groin) hydrALAZINE Yes 50mg Q.[id number] Take 50 mg [facility] (APRESOLINE 7-19 [id number] by mouth 3 [facility] ) 50 MG [...] area in groin) hydrALAZINE 0 Yes 50mg Q.[id number] Take 50 mg [facility] (APRESOLINE 7-19 [id number] [facility] mouth [facility] ) 50 MG [...] area in groin) hydrALAZINE 0 Yes 50mg Q.[id number] Take 50 mg [facility] (APRESOLINE 7-19 [id number] by mouth [facility] ) 50 MG [...] area in groin) hydrALAZINE 0 Yes 50mg Q.[id number] Take 50 mg [facility] (APRESOLINE 7-19 [id number] [facility] mouth [facility] ) 50 MG [...] (affected area in groin) hydrALAZINE Yes 50mg Q.[id number] Take 50 mg [facility] (APRESOLINE 7-19 [id number] by mouth 3 [facility] ) 50 MG [...] area in groin) hydrALAZINE 0 Yes 50mg Q.[id number] Take 50 mg [facility] (APRESOLINE 7-19 [id number] [facility] mouth [facility] ) 50 MG [...] area in groin) hydrALAZINE 0 Yes 50mg Q.[id number] Take 50 mg [facility] (APRESOLINE 7-19 [id number] [facility] mouth [facility] ) 50 MG [...] (affected area in groin) hydrALAZINE Yes 50mg Q.[id number] Take 50 mg [facility] (APRESOLINE - [id number] by mouth 3 [facility] ) 50 MG [...] area in groin) hydrALAZINE 0 Yes 50mg Q.[id number] Take 50 mg [facility] (APRESOLINE 7-19 [id number] by mouth [facility] ) 50 MG [...] area in groin) hydrALAZINE 0 Yes 50mg Q.[id number] Take 50 mg [facility] (APRESOLINE 7-19 [id number] [address] [facility] ) 50 MG [...] area in groin) hydrALAZINE 0 Yes 50mg Q.[id number] Take 50 mg [facility] (APRESOLINE - [id number] by mouth 3 [facility] ) 50 MG [...] area in groin) hydrALAZINE 0 Yes 50mg Q.[id number] Take 50 mg [facility] (APRESOLINE 7-19 [id number] by mouth [facility] ) 50 MG [...] area in groin) hydrALAZINE 2020-0 Yes 50mg Q.[id number] Take 50 mg [facility] (APRESOLINE 7-19 [id number] [facility] mouth [facility] ) 50 MG [...] (affected area in groin) hydrALAZINE Yes 50mg Q.[id number] Take 50 mg [facility] (APRESOLINE 7-19 [id number] by mouth [facility] ) 50 MG [...] (affected area in groin) hydrALAZINE Yes 50mg Q.[id number] Take 50 mg [facility] (APRESOLINE 7-19 [id number] [facility] mouth [facility] ) 50 MG [...] area in groin) hydrALAZINE 0 Yes 50mg Q.[id number] Take 50 mg [facility] (APRESOLINE 7-19 [id number] [address] mouth [facility] ) 50 MG [...] area in groin) hydrALAZINE 0 Yes 50mg Q.[id number] Take 50 mg [facility] (APRESOLINE 7-19 [id number] [facility] mouth [facility] ) 50 MG [...] (affected area in groin) hydrALAZINE Yes 50mg Q.[id number] Take 50 mg [facility] (APRESOLINE - [id number] by mouth 3 [facility] ) 50 MG [...] area in groin) hydrALAZINE 0 Yes 50mg Q.[id number] Take 50 mg [facility] (APRESOLINE 7-19 [id number] [facility] mouth [facility] ) 50 MG [...] area in groin) hydrALAZINE 0 Yes 50mg Q.[id number] Take 50 mg [facility] (APRESOLINE 7-19 [id number] [facility] mouth [facility] ) 50 MG [...] (affected area in groin) hydrALAZINE Yes 50mg Q.[id number] Take 50 mg [facility] (APRESOLINE 7-19 [id number] [facility] mouth [facility] ) 50 MG [...] area in groin) hydrALAZINE 0 Yes 50mg Q.[id number] Take 50 mg [facility] (APRESOLINE 7-19 [id number] [facility] mouth [facility] ) 50 MG [...] area in groin) hydrALAZINE 2020-0 Yes 50mg Q.[id number] Take 50 mg [facility] (APRESOLINE 7-19 [id number] [facility] mouth [facility] ) 50 MG [...] area in groin) hydrALAZINE 0 Yes 50mg Q.[id number] Take 50 mg [facility] (APRESOLINE 7-19 [id number] [address] mouth [facility] ) 50 MG [...] (affected area in groin) hydrALAZINE Yes 50mg Q.60308814 Take 50 mg [facility] (APRESOLINE - [id number] by mouth 3 [facility] ) 50 MG [...] area in groin) hydrALAZINE 0 Yes 50mg Q.[id number] Take 50 mg [facility] (APRESOLINE 7-19 [id number] [facility] mouth [facility] ) 50 MG [...] area in groin) hydrALAZINE 2020-0 Yes 50mg Q.[id number] Take 50 mg [facility] (APRESOLINE 7-19 [id number] [facility] mouth [facility] ) 50 MG [...] area in groin) hydrALAZINE 0 Yes 50mg Q.[id number] Take 50 mg [facility] (APRESOLINE - [id number] by mouth 3 [facility] ) 50 MG [...] area in groin) hydrALAZINE 0 Yes 50mg Q.[id number] Take 50 mg [facility] (APRESOLINE 7-19 [id number] [facility] mouth 3 [facility] ) 50 MG [...] area in groin) hydrALAZINE 2020-0 Yes 50mg Q.[id number] Take 50 mg [facility] (APRESOLINE 7-19 [id number] [address] mouth [facility] ) 50 MG [...] area in groin) hydrALAZINE 0 Yes 50mg Q.[id number] Take 50 mg [facility] (APRESOLINE 7-19 [id number] by mouth [facility] ) 50 MG [...] (affected area in groin) hydrALAZINE Yes 50mg Q.[id number] Take 50 mg [facility] (APRESOLINE 7-19 [id number] [facility] mouth 3 [facility] ) 50 MG [...] area in groin) hydrALAZINE 0 Yes 50mg Q.[id number] Take 50 mg [facility] (APRESOLINE -19 [id number] [facility] mouth [facility] ) 50 MG [...] area in groin) hydrALAZINE 0 Yes 50mg Q.[id number] Take 50 mg [facility] (APRESOLINE 7-19 [id number] [facility] mouth [facility] ) 50 MG [...] (affected area in groin) hydrALAZINE Yes 50mg Q.[id number] Take 50 mg [facility] (APRESOLINE 7-19 [id number] [address] mouth [facility] ) 50 MG [...] area in groin) hydrALAZINE 0 Yes 50mg Q.[id number] Take 50 mg [facility] (APRESOLINE 7-19 [id number] mouth [facility] ) 50 MG [...] area in groin) hydrALAZINE 0 Yes 50mg Q.[id number] Take 50 mg [facility] (APRESOLINE 7-19 [id number] mouth [facility] ) 50 MG [...] (affected area in groin) hydrALAZINE Yes 50mg Q.[id number] Take 50 mg [facility] (APRESOLINE 7-19 [id number] mouth [facility] ) 50 MG [...] (affected area in groin) hydrALAZINE Yes 50mg Q.[id number] Take 50 mg [facility] (APRESOLINE -19 [id number] [address] mouth [facility] ) 50 MG [...] area in groin) hydrALAZINE 0 Yes 50mg Q.[id number] Take 50 mg [facility] (APRESOLINE 7-[id number] mouth [facility] ) 50 MG [...] area in groin) hydrALAZINE 0 Yes 50mg Q.[id number] Take 50 mg [facility] (APRESOLINE 7-[id number] mouth [facility] ) 50 MG [...] (affected area in groin) hydrALAZINE Yes 50mg Q.[id number] Take 50 mg [facility] (APRESOLINE 7-19 [id number] [address] mouth [facility] ) 50 MG [...] area in groin) hydrALAZINE 0 Yes 50mg Q.[id number] Take 50 mg [facility] (APRESOLINE 7-19 [id number] [address] mouth [facility] ) 50 MG [...] area in groin) hydrALAZINE 0 Yes 50mg Q.[id number] Take 50 mg [facility] (APRESOLINE 7-19 [id number] [facility] mouth [facility] ) 50 MG [...] (affected area in groin) hydrALAZINE Yes 50mg Q.[id number] Take 50 mg [facility] (APRESOLINE 7-[id number] mouth [address] ) 50 MG [...] area in groin) hydrALAZINE 0 Yes 50mg Q.[id number] Take 50 mg [facility] (APRESOLINE 7-[id number] mouth [facility] ) 50 MG [...] area in groin) hydrALAZINE 0 Yes 50mg Q.[id number] Take 50 mg [facility] (APRESOLINE 7-[id number] mouth [facility] [address] ) 50 MG [...] (affected area in groin) hydrALAZINE Yes 50mg Q.[id number] Take 50 mg [facility] (APRESOLINE 7-[id number] mouth [facility] ) 50 MG [...] area in groin) hydrALAZINE 0 Yes 50mg Q.[id number] Take 50 mg [facility] (APRESOLINE 7-19 [id number] [address] mouth [facility] ) 50 MG [...] area in groin) hydrALAZINE 0 Yes 50mg Q.[id number] Take 50 mg [facility] (APRESOLINE 7-19 [id number] [address] mouth [facility] ) 50 MG [...] (affected area in groin) hydrALAZINE Yes 50mg Q.[id number] Take 50 mg [facility] (APRESOLINE 7-[id number] [address] mouth [facility] [address] ) 50 MG [...] (affected area in groin) hydrALAZINE Yes 50mg Q.[id number] Take 50 mg [facility] (APRESOLINE 7-[id number] mouth [facility] [address] ) 50 MG [...] area in groin) hydrALAZINE 0 Yes 50mg Q.[id number] Take 50 mg [facility] (APRESOLINE 7-[id number] [facility] [address] ) 50 MG [...] area in groin) hydrALAZINE 0 Yes 50mg Q.[id number] Take 50 mg [facility] (APRESOLINE 7-[id number] [facility] [address] ) 50 MG [...] (affected area in groin) hydrALAZINE Yes 50mg Q.[id number] Take 50 mg [facility] (APRESOLINE 7-[id number] mouth [facility] [address] ) 50 MG [...] area in groin) hydrALAZINE 0 Yes 50mg Q.[id number] Take 50 mg [facility] (APRESOLINE 7-[id number] mouth [facility] [address] ) 50 MG [...] area in groin) hydrALAZINE 0 Yes 50mg Q.[id number] Take 50 mg [facility] (APRESOLINE 7-[id number] mouth [address] ) 50 MG [...] (affected area in groin) hydrALAZINE Yes 50mg Q.[id number] Take 50 mg [facility] (APRESOLINE 7-[id number] mouth [address] ) 50 MG [...] area in groin) hydrALAZINE 0 Yes 50mg Q.[id number] Take 50 mg [facility] (APRESOLINE 7-[id number] mouth [facility] [address] ) 50 MG [...] area in groin) hydrALAZINE 2021-0 Yes 50mg Q.[id number] Take 50 mg [facility] (APRESOLINE 7-[id number] mouth [address] ) 50 MG [...] area in groin) hydrALAZINE 0 Yes 50mg Q.[id number] Take 50 mg [facility] (APRESOLINE 7-19 [id number] [address] mouth [facility] ) 50 MG [...] area in groin) hydrALAZINE 0 Yes 50mg Q.[id number] Take 50 mg [facility] (APRESOLINE 7-[id number] mouth [facility] [address] ) 50 MG [...] area in groin) hydrALAZINE 2020-0 Yes 50mg Q.[id number] Take 50 mg [facility] (APRESOLINE 7-19 [id number] mouth [facility] ) 50 MG [...] tablet 25 daily. l nystatin-tr 2020-0 Yes [id number] Apply to [facility] iamcinolone 7-06 area(s) 3 ity of cream 00:00: (three) [place] 00 times Medical daily. Branch nystatin-tr 2021-0 Yes [id number] Apply to [facility] iamcinolone 7-06 area(s) 3 ity of cream 00:00: (three) [place] 00 times Medical daily. Branch nystatin-tr 2021-0 Yes [id number] Apply to [facility] iamcinolone 7-06 area(s) 3 ity of cream 00:00: (three) [place] 00 times Medical daily. Branch nystatin-tr 2021-0 Yes [id number] Apply to [facility] iamcinolone 7-06 area(s) 3 ity of cream 00:00: (three) [place] 00 times Medical daily. Branch nystatin-tr 2021-0 Yes [id number] Apply to [facility] iamcinolone 7-06 area(s) 3 ity of cream 00:00: (three) [place] 00 times Medical daily. Branch nystatin-tr 2021-0 Yes [id number] Apply to [facility] iamcinolone 7-06 area(s) 3 ity of cream 00:00: (three) [place] 00 times Medical daily. Branch nystatin-tr 2021-0 Yes [id number] Apply to [facility] iamcinolone 7-06 area(s) 3 ity of cream 00:00: (three) [place] 00 times Medical daily. Branch nystatin-tr 2021-0 Yes [id number] Apply to [facility] iamcinolone 7-06 area(s) 3 ity of cream 00:00: (three) [place] 00 times Medical daily. Branch nystatin-tr 2021-0 Yes [id number] Apply to [facility] iamcinolone 7-06 area(s) 3 ity of cream 00:00: (three) [place] 00 times Medical daily. Branch nystatin-tr 2021-0 Yes [id number] Apply to [facility] iamcinolone 7-06 area(s) 3 ity of cream 00:00: (three) [place] 00 times Medical daily. Branch nystatin-tr 2021-0 Yes [id number] Apply to [facility] iamcinolone 7-06 area(s) 3 ity of cream 00:00: (three) [place] 00 times Medical daily. Branch nystatin-tr 2021-0 Yes [id number] Apply to [facility] iamcinolone 7-06 area(s) 3 ity of cream 00:00: (three) [place] 00 times Medical daily. Branch nystatin-tr 2021-0 Yes [id number] Apply to [facility] iamcinolone 7-06 area(s) 3 ity of cream 00:00: (three) [place] 00 times Medical daily. Branch nystatin-tr 2021-0 Yes [id number] Apply to [facility] iamcinolone 7-06 area(s) 3 ity of cream 00:00: (three) [place] 00 times Medical daily. Branch nystatin-tr 2021-0 Yes [id number] Apply to [facility] iamcinolone 7-06 area(s) 3 ity of cream 00:00: (three) [place] 00 times Medical daily. Branch nystatin-tr 2021-0 Yes [id number] Apply to [facility] iamcinolone 7-06 area(s) 3 ity of cream 00:00: (three) [place] 00 times Medical daily. Branch nystatin-tr 2021-0 Yes [id number] Apply to [facility] iamcinolone 7-06 area(s) 3 ity of cream 00:00: (three) [place] 00 times Medical daily. Branch nystatin-tr 2021-0 Yes [id number] Apply to [facility] iamcinolone 7-06 area(s) 3 ity of cream 00:00: (three) [place] 00 times Medical daily. Branch nystatin-tr 2020-0 Yes [id number] Apply to [facility] iamcinolone 7-06 area(s) 3 ity of cream 00:00: (three) [place] 00 times Medical daily. Branch nystatin-tr 1-0 Yes [id number] Apply to [facility] iamcinolone 7-06 area(s) 3 ity of cream 00:00: (three) [place] 00 times Medical daily. Branch nystatin-tr 1-0 Yes [id number] Apply to [facility] iamcinolone 7-06 area(s) 3 ity of cream 00:00: (three) [place] 00 times Medical daily. Branch nystatin-tr 1-0 Yes [id number] Apply to [facility] iamcinolone 7-06 area(s) 3 ity of cream 00:00: (three) [place] 00 times Medical daily. Branch nystatin-tr 1-0 Yes [id number] Apply to [facility] iamcinolone 7-06 area(s) 3 ity of cream 00:00: (three) [place] 00 times Medical daily. Branch nystatin-tr 2020-0 Yes [id number] Apply to [facility] iamcinolone 7-06 area(s) 3 ity of cream 00:00: (three) [place] 00 times Medical daily. Branch budesonide- 0 2020- No 1{puff} QD Inhale 1 [facility] formoteroL 6-25 06-[address] (SYMBICORT) 14:37: 00:00 morning. H ospita 160-4.5 02 :00 l mcg/actuati on inhaler hydrALAZINE 0 Yes [id number] 50mg [id number] Take 1 [place] (Apresoline 6-11 [id number] tablet (50 Health ) 50 MG 00:00: 3D mg total) tablet 00 by mouth 3 (three) times a day. hydrALAZINE 0 Yes [id number] 50mg Q.[id number] Take 1 [place] (Apresoline 6-11 [id number] tablet (50 Health ) 50 MG 00:00: 3D mg total) tablet 00 by mouth 3 (three) times a day. Breztri 2020-0 Yes [facility] Aerosphere 6-09 Health 160-9-4.8 00:00: MCG/ACT 00 aerosol Breztri Yes [facility] Aerosphere 10-29 Health 160-9-4.8 [...] 00:00: ointment 00 mupirocin Yes [place] (Bactroban) 5 Health 2 % 00:00: ointment 00 nystatin 2020- No [id number] Q.25D Take 5 mL [facility] (MYCOSTATIN 10-06 [...] ia 4-10 (Same as: l 14:00: Norvasc) [place] 00 emtricitabi No Notes: Caesar lisa ne 200 MG / 4-10 (Same as: l tenofovir 14:00: Descovy) Herm ariel alafenamide 00 Non-formul 25 MG Oral nancy Tablet [Descovy] pantoprazol No Notes: Caesar lisa e 4-10 Tablet l 14:00: should not [place] 00 be chewed or crushed. (Same as: Protonix) Amiodarone No Notes: Memor ia 4-10 (Same as: l 14:00: Cordarone) [place] Amlodipine No Notes: Memor ia 4-10 (Same as: l 14:00: Norvasc) [place] emtricitabi No Notes: Caesar lisa ne 200 MG / 4-10 (Same as: l tenofovir 14:00: Descovy) Herm ariel alafenamide 00 Non-formul 25 MG Oral nancy Tablet [Descovy] Sertraline No Notes: Memor ia 4-10 (Same as: l 14:00: Zoloft) [place] Sertraline No Notes: Memor ia 4-10 (Same as: l 14:00: Zoloft) [place] pantoprazol No Notes: Caesar lisa e 4-10 Tablet l 14:00: should not [place] 00 be chewed or crushed. (Same as: Protonix) Amiodarone No Notes: Memor ia 4-10 (Same as: l 14:00: Cordarone) [place] Amlodipine No Notes: Memor ia 4-10 (Same as: l 14:00: Norvasc) [place] emtricitabi No Notes: Caesar lisa ne 200 [...] ia 4-10 (Same as: l 14:00: Cordarone) [place] Amlodipine No Notes: Memor ia 4-10 (Same as: l 14:00: Norvasc) [place] emtricitabi No Notes: Caesar lisa ne 200 MG / 4-10 (Same as: l tenofovir 14:00: Descovy) Herm ariel alafenamide 00 Non-formul 25 MG Oral nancy Tablet [Descovy] Sertraline No Notes: Memor ia 4-10 (Same as: l 14:00: Zoloft) [place] pantoprazol No Notes: Caesar lisa e 4-10 Tablet l 14:00: should not [place] 00 be chewed or crushed. (Same as: Protonix) Amiodarone No Notes: Memor ia 4-10 (Same as: l 14:00: Cordarone) [place] 00 Amlodipine No Notes: Memor ia 4-10 (Same as: l 14:00: Norvasc) [place] emtricitabi No Notes: Caesar lisa ne 200 MG / 4-10 (Same as: l tenofovir 14:00: Descovy) Herm ariel alafenamide 00 Non-formul 25 MG Oral nancy Tablet [Descovy] Sertraline No Notes: Memor ia 4-10 (Same as: l 14:00: Zoloft) [place] pantoprazol No Notes: Caesar lisa e 4-10 Tablet l 14:00: should not [place] 00 be chewed or crushed. (Same as: Protonix) Amiodarone No Notes: Memor ia 4-10 (Same as: l 14:00: Cordarone) [place] Amlodipine No Notes: Memor ia 4-10 (Same [...] M emoria 4-10 interfere l 02:00: w/enteral [place] 00 feeds - Take 1 hr before or 2 hr after antacids, dairy pdt, meals & minerals - On empty stomach. For patients unable to swallow tablet, dissolve in 10mL - 30mL of water or juice and stir before giving. (Same As: Carafate) Saline No Notes: Memoria Flush 0.9% 4-10 (Same as: l 02:00: BD [place] 00 Posiflush) Eliquis No Notes: Memoria 4-10 Same as: l 02:00: Eliquis [place] Hydralazine No Notes: Caesar lisa Hydrochlori 4-10 (Same as: l de 50 MG 02:00: Apresoline Her mitchell Oral Tablet 00 ) May interfere w/enteral feedings Take With Food Sucralfate No Notes: May M emoria 4-10 interfere l 02:00: w/enteral [place] 00 feeds - Take 1 hr before or 2 hr after antacids, dairy pdt, meals & minerals - On empty stomach. For patients unable to swallow tablet, dissolve in 10mL - 30mL of water or juice and stir before giving. (Same As: Carafate) Saline No Notes: Memoria Flush 0.9% 4-10 (Same as: l 02:00: BD [place] 00 Posiflush) Eliquis No Notes: Memoria 4-10 Same as: l 02:00: Eliquis [place] Hydralazine No Notes: Acesar lisa Hydrochlori 4-10 [...] 0.9% 4-10 (Same as: l 02:00: BD [place] 00 Posiflush) Eliquis No Notes: Memoria 4-10 [...] not exceed l #3 00:12: 4gm/day of [place] acetaminop hen. (Same as: Tylenol with Codeine # 3) acetaminoph No Notes: Do M emoria en-codeine 4-10 not exceed l #3 00:12: 4gm/day of [place] acetaminop hen. (Same as: Tylenol with Codeine # 3) acetaminoph No Notes: Do M emoria en-codeine 4-10 not exceed l #3 00:12: 4gm/day of [place] acetaminop hen. (Same as: Tylenol with Codeine # 3) acetaminoph No Notes: Do M emoria en-codeine 4-10 not exceed l #3 00:12: 4gm/day of [place] acetaminop hen. (Same as: Tylenol with Codeine [...] l Tablet 22:00: Route: PO, Skylar nn [[facility]] 00 Drug form: TAB, BID, Dosing Weight 97.273, kg, Start date: 08/29/20 17:00:00 CDT, Duration: 30 day, Stop date: 09/28/20 9:00:00 CDT, 0 Buspirone No Notes: Memori a 08-29 (Same As: l 22:00: BuSpar) Lisinopril 0 No 40 mg, 1 Mem oria 4-09 tab, l 22:00: Route: PO, [place] 00 Drug form: TAB, BID, Dosing Weight [...] tartrate 4-09 tab, l 22:00: Route: PO, [place] 00 Drug form: TAB, BID, Dosing Weight [...] oria 4-09 tab, l 22:00: Route: PO, [place] Drug form: TAB, BID, Dosing Weight 97.273, [...] l Tablet 22:00: Route: PO, Skylar nn [[facility]] Drug form: TAB, BID, Dosing Weight 97.273, kg, Start date: 08/29/20 17:00:00 CDT, Duration: 30 day, Stop date: 09/28/20 9:00:00 CDT, 0 Buspirone 2020-0 No Notes: Memori a 08-29 (Same As: l 22:00: BuSpar) Lisinopril 2020-0 No 40 mg, 1 Mem oria 4-09 tab, l 22:00: Route: PO, [place] 00 Drug form: TAB, BID, Dosing Weight [...] Notes: Memoria 4-09 (Same l 17:07: as:MORPhin [place] 00 e Sulfate) Morphine No Notes: Memoria 4-09 (Same l 17:07: as:MORPhin [place] 00 e Sulfate) Morphine No Notes: Memoria [...] tab, 0 coated Refill(s), tablet Pharmacy: [facility], 162.56, cm, 08/29/20 5:30:00 CDT, Height, 97.273, kg, 08/29/20 5:30:00 CDT, Weight pantoprazol 2021-0 Yes 40 mg = 1 M emoria e 40 mg 4-09 tab, PO, l oral 15:27: Daily, # [place] enteric 00 30 tab, 0 coated Refill(s), tablet Pharmacy: [facility], 162.56, cm, 08/29/20 5:30:00 CDT, Height, 97.273, kg, 08/29/20 5:30:00 CDT, Weight pantoprazol 1-0 Yes 40 mg = 1 M emoria e 40 mg 4-09 tab, PO, l oral 15:27: Daily, # [place] enteric 00 30 tab, 0 coated Refill(s), tablet Pharmacy: [facility], 162.56, cm, 08/29/20 5:30:00 CDT, Height, 97.273, kg, 08/29/20 5:30:00 CDT, Weight pantoprazol 1-0 Yes 40 mg = 1 M emoria e 40 mg 4-09 tab, PO, l oral 15:27: Daily, # [place] enteric 00 30 tab, 0 coated Refill(s), tablet Pharmacy: [facility], 162.56, cm, 08/29/20 5:30:00 CDT, Height, 97.273, kg, 08/29/20 5:30:00 CDT, Weight pantoprazol 1-0 Yes 40 mg = 1 M emoria e 40 mg 4-09 tab, PO, l oral 15:27: Daily, # [place] enteric 00 30 tab, 0 coated Refill(s), tablet Pharmacy: [facility], 162.56, cm, 08/29/20 5:30:00 CDT, Height, 97.273, kg, 08/29/20 5:30:00 CDT, Weight pantoprazol 2021-0 Yes 40 mg = 1 M emoria e 40 mg 4-09 tab, PO, l oral 15:27: Daily, # [place] enteric 00 30 tab, 0 coated Refill(s), tablet Pharmacy: [facility], 162.56, cm, 08/29/20 5:30:00 CDT, Height, 97.273, kg, 08/29/20 5:30:00 CDT, Weight pantoprazol 2020-0 Yes 40 mg = 1 M emoria e 40 mg 4-09 tab, PO, l oral 15:27: Daily, # [place] enteric 00 30 tab, 0 coated Refill(s), tablet Pharmacy: [facility], 162.56, cm, 08/29/20 5:30:00 CDT, Height, 97.273, kg, 08/29/20 5:30:00 CDT, Weight pantoprazol 2020-0 No 40 mg = 1 M emoria e 40 mg 4-09 tab, PO, l oral 15:26: Daily, # [place] enteric 00 30 tab, 0 coated Refill(s) tablet sucralfate 2020-0 Yes 1 gm = 1 Mem oria 1 g oral 4-09 tab, PO, l tablet 15:26: Q12H, # 28 Skylar nn 00 tab, 0 Refill(s), Pharmacy: [facility], 162.56, cm, 08/29/20 5:30:00 CDT, Height, 97.273, kg, 08/29/20 5:30:00 CDT, Weight pantoprazol 2020-0 No 40 mg = 1 M emoria e 40 mg 4-09 tab, PO, l oral 15:26: Daily, # Maryt enteric 00 30 tab, 0 coated Refill(s) tablet sucralfate 2020-0 Yes 1 gm = 1 Mem oria 1 g oral 4-09 tab, PO, l tablet 15:26: Q12H, # 28 Skylar nn 00 tab, 0 Refill(s), Pharmacy: [facility], 162.56, cm, 08/29/20 5:30:00 CDT, [...] nn 00 tab, 0 Refill(s), Pharmacy: [facility], 162.56, cm, 08/29/20 5:30:00 CDT, [...] 00 tab, 0 Refill(s), Pharmacy: [place] [address], 162.56, cm, 08/29/20 5:30:00 CDT, Height, 97.273, [...] 00 tab, 0 Refill(s), Pharmacy: [place] [address], 162.56, cm, 08/29/20 5:30:00 CDT, Height, 97.273, kg, 08/29/20 5:30:00 CDT, Weight pantoprazol 2020-0 No 40 mg = 1 M emoria e 40 mg 4-09 tab, PO, l oral 15:26: Daily, # [place] enteric 00 30 tab, 0 coated Refill(s) tablet sucralfate 2020-0 Yes 1 gm = 1 Mem oria 1 g oral 4-09 tab, PO, l tablet 15:26: Q12H, # 28 Skylar nn 00 tab, 0 Refill(s), Pharmacy: [facility], 162.56, cm, 08/29/20 5:30:00 CDT, [...] nn 00 tab, 0 Refill(s), Pharmacy: [facility], 162.56, cm, 08/29/20 5:30:00 CDT, Height, 97.273, kg, 08/29/20 5:30:00 CDT, Weight Saline No Notes: Memoria Flush 0.9% 4-09 (Same as: l 15:25: BD [place] 00 Posiflush) Lorazepam No Notes: Memori a 4-09 (Same as: l 15:25: Ativan) Saline No Notes: Memoria Flush 0.9% 4-09 (Same as: l 15:25: BD [place] 00 Posiflush) Lorazepam No Notes: Memori a 4-09 (Same as: l 15:25: Ativan) Saline No Notes: Memoria Flush 0.9% 4-09 (Same as: l 15:25: BD [place] 00 Posiflush) Saline No Notes: Memoria Flush 0.9% 4-09 (Same as: l 15:25: BD [place] 00 Posiflush) Lorazepam No Notes: Memori a 4-09 (Same as: l 15:25: Ativan) [place] 00 Lorazepam No Notes: Memori a 4-09 (Same as: l 15:25: Ativan) [place] 00 Saline No Notes: Memoria Flush 0.9% 4-09 (Same as: l 15:25: BD [place] 00 Posiflush) Lorazepam No Notes: Memori a 4-09 (Same as: l 15:25: Ativan) [place] 00 Saline No Notes: Memoria Flush 0.9% - (Same as: l 15:25: BD Posiflush) Lorazepam No Notes: Memori a - (Same as: l 15:25: Ativan) Saline No Notes: Memoria Flush 0.9% - (Same as: l 15:25: BD Posiflush) Lorazepam No Notes: Memori a 4- [...] CDT heparin 202-0 No Route: IV, Caesar ilsa (ANES) 08-29 Drug form: l 14:18: INJ, [...] 08-29 Drug form: l 14:18: INJ, ONCE, [place] 00 Stop date: 08/29/20 9:18:00 CDT heparin [...] Memori a 08-29 Route: l 14:01: IVP, [place] 00 Q5Min, Dosing Weight 97.273, kg, PRN Elevated BP, Start date: 08/29/20 9:01:00 CDT, Duration: 5 doses or times, Stop date: Limited # of times Acetaminoph 2020-0 No 1,000 mg, M emoria en 08-29 Route: PO, l 14:01: Drug form: [place] 00 TAB, ONCE, Dosing Weight 97.273, kg, [...] 2020-0 No 0.5 mg, Mem oria ne 4-09 Route: l 14:01: IVP, [place] 00 Q5Min, Dosing Weight 97.273, kg, PRN Pain Score 7-10, Start date: 08/29/20 9:01:00 CDT, Duration: 4 doses or times, Stop date: Limited # of times Flumazenil 2020-0 No 0.2 mg, Caesar lisa 08-29 Route: l 14:01: IVP, PRN, [place] 00 Dosing Weight 97.273, kg, PRN Benzodiaze [...] ia 08-29 Route: l 14:01: IVP, ONCE, [place] 00 Dosing Weight 97.273, kg, PRN Nausea [...] 08-29 Route: PO, l 14:01: Drug form: [place] 00 TAB, ONCE, Dosing Weight 97.273, kg, [...] oria ne 08-29 Route: l 14:01: IVP, [place] 00 Q5Min, Dosing Weight 97.273, kg, PRN Pain Score 7-10, Start date: 08/29/20 9:01:00 CDT, Duration: 4 doses or times, Stop date: Limited # of times Flumazenil 2020-0 No 0.2 mg, Caesar lisa 08-29 Route: l 14:01: IVP, PRN, [place] 00 Dosing Weight 97.273, kg, PRN Benzodiaze [...] Memori a 08-29 Route: l 14:01: IVP, [place] 00 Q5Min, Dosing Weight 97.273, kg, PRN [...] lisa 08-29 Route: l 14:01: IVP, PRN, [place] 00 Dosing Weight 97.273, kg, PRN Benzodiaze pine Reversal, Initial dose, Start date: 08/29/20 9:01:00 CDT, Duration: 30 day, Stop date: 09/28/20 9:00:00 CDT Naloxone 1-0 No 0.4 mg, Memori a 08-29 Route: l 14:01: IVP, [place] 00 Q2MIN, Dosing Weight 97.273, kg, PRN Narcotic Reversal, Start date: 08/29/20 9:01:00 CDT, Duration: 8 doses or times, Stop date: Limited # of times Ondansetron 1-0 No 4 mg, Memor ia 08-29 Route: l 14:01: IVP, ONCE, [place] 00 Dosing Weight 97.273, kg, PRN Nausea & Vomiting, Start date: 08/29/20 9:01:00 CDT Labetalol 1-0 No 10 mg, Memori a 08-29 Route: l 14:01: IVP, [place] 00 Q5Min, Dosing Weight 97.273, kg, PRN Elevated BP, Start date: 08/29/20 9:01:00 CDT, Duration: 5 doses or times, Stop date: Limited # of times Acetaminoph 2021-0 No 1,000 mg, M emoria en 08-29 Route: PO, l 14:01: Drug form: [place] 00 TAB, ONCE, Dosing Weight 97.273, kg, [...] lisa 08-29 Route: l 14:01: IVP, PRN, [place] 00 Dosing Weight 97.273, kg, PRN Benzodiaze pine Reversal, Initial dose, Start date: 08/29/20 9:01:00 CDT, Duration: 30 day, Stop date: 09/28/20 9:00:00 CDT Naloxone 2021-0 No 0.4 mg, Memori a 08-29 Route: l 14:01: IVP, [place] 00 Q2MIN, Dosing Weight 97.273, kg, PRN Narcotic Reversal, Start date: 08/29/20 9:01:00 CDT, Duration: 8 doses or times, Stop date: Limited # of times Flumazenil 1-0 No 0.2 mg, Caesar lisa 08-29 Route: l 14:01: IVP, PRN, [place] 00 Dosing Weight 97.273, kg, PRN Benzodiaze pine Reversal, Initial dose, Start date: 08/29/20 9:01:00 CDT, Duration: 30 day, Stop date: 09/28/20 9:00:00 CDT Ondansetron 2021-0 No 4 mg, Memor ia 08-29 Route: l 14:01: IVP, ONCE, [place] 00 Dosing Weight 97.273, kg, PRN Nausea [...] ia 08-29 Route: l 14:01: IVP, ONCE, [place] 00 Dosing Weight 97.273, kg, PRN Nausea [...] 08-29 Route: PO, l 14:01: Drug form: [place] 00 TAB, ONCE, Dosing Weight 97.273, kg, [...] Memori a 08-29 Route: l 14:01: IVP, [place] 00 Q5Min, Dosing Weight 97.273, kg, PRN Elevated BP, Start date: 08/29/20 9:01:00 CDT, Duration: 5 doses or times, Stop date: Limited # of times Acetaminoph 2020-0 No 1,000 mg, M emoria en 08-29 Route: PO, l 14:01: Drug form: [place] 00 TAB, ONCE, Dosing Weight 97.273, kg, [...] Drug form: l 10 13:15: INJ, Start [place] 00 date: 08/29/20 8:15:00 CDT, Stop date: [...] Drug form: l 10 13:15: INJ, Start [place] microgram 00 date: 08/29/20 8:15:00 CDT, Stop date: 08/29/20 9:15:00 CDT norepinephr 2020-0 No Route: IV, Memoria ine (ANES) 08-29 Drug form: l 10 13:15: INJ, Start [place] microgram date: 08/29/20 8:15:00 CDT, Stop date: [...] 2021-0 No Route: IV, Memor ia Chloride 08-29 [...] 4-09 Total l 0.9% IV 12:30: Volume: [place] (ANES) 1000 00 1,000, mL Start date: 08/29/20 7:30:00 CDT, Stop date: 08/29/20 8:30:00 CDT Sodium 2020-0 No Route: IV, Memor ia Chloride 4-09 Total l 0.9% IV 12:30: Volume: [place] (ANES) 1000 00 1,000, mL Start date: 08/29/20 7:30:00 CDT, Stop date: 08/29/20 8:30:00 CDT Sodium 2020-0 No Route: IV, Memor ia Chloride 4-09 Total l 0.9% IV 12:30: Volume: [place] (ANES) 1000 00 1,000, mL Start date: 08/29/20 7:30:00 CDT, Stop date: 08/29/20 8:30:00 CDT Sodium 2020-0 No Route: IV, Memor ia Chloride 4-09 Total l 0.9% IV 12:30: Volume: [place] (ANES) 1000 00 1,000, mL Start date: 08/29/20 7:30:00 CDT, Stop date: 08/29/20 8:30:00 CDT Sodium 2020-0 No Route: IV, Memor ia Chloride 4-09 Total l 0.9% IV 12:30: Volume: [place] (ANES) 1000 00 1,000, mL Start date: [...] PO, l Hydrochlori 11:42: Q24H, # 30 [place] de 150 MG 00 tab, 0 Extended Refill(s) Release Tablet 24 HR Yes 150 mg = 1 Memori a Bupropion 4-09 tab, PO, l Hydrochlori 11:42: Q24H, # 30 [place] de 150 MG 00 tab, 0 Extended Refill(s) Release Tablet 24 HR Yes 150 mg = 1 Memori a Bupropion 4-09 tab, PO, l Hydrochlori 11:42: Q24H, # 30 [place] de 150 MG 00 tab, 0 Extended Refill(s) Release Tablet 24 HR 2021-0 Yes 150 mg = 1 Memori a Bupropion -09 tab, PO, l Hydrochlori 11:42: Q24H, # 30 [place] de 150 MG 00 tab, 0 Extended Refill(s) Release Tablet 24 HR 2020-0 Yes 150 mg = 1 Memori a Bupropion -09 tab, PO, l Hydrochlori 11:42: Q24H, # 30 [place] de 150 MG 00 tab, 0 Extended [...] 08-29 Q12H, tab, l Tablet 11:41: 0 [place] [Eliquis] 00 Refill(s), For Atrial Fibrilatio n apixaban 5 2020-0 Yes 5 mg, PO, Me moria MG Oral 08-29 Q12H, tab, l Tablet 11:41: 0 [place] [Eliquis] 00 Refill(s), For Atrial Fibrilatio n apixaban 5 2020-0 Yes 5 mg, PO, Me moria MG Oral - Q12H, tab, l Tablet 11:41: 0 [place] [Eliquis] 00 Refill(s), For Atrial Fibrilatio n apixaban 5 2020-0 Yes 5 mg, PO, Me moria MG Oral 4- Q12H, tab, l Tablet 11:41: 0 [place] [Eliquis] 00 Refill(s), For Atrial Fibrilatio n apixaban 2020-0 Yes 5 mg, PO, Me moria MG Oral 4-09 Q12H, tab, l Tablet 11:41: 0 [place] [Miller] 00 Refill(s), For Atrial Fibrilatio n AMIODarone Yes 200 mg = 1 M emoria 200 mg oral 4-09 tab, PO, l tablet 11:38: Daily, # [place] 00 90 tab, 3 Refill(s) AMIODarone Yes [...] tab, PO, l tablet 11:38: Daily, # [place] 00 90 tab, 3 Refill(s) AMIODarone Yes 200 mg = 1 M emoria 200 mg oral 4-09 tab, PO, l tablet 11:38: Daily, # [place] 00 90 tab, 3 Refill(s) AMIODarone 0 Yes 200 mg = 1 M emoria 200 mg oral 4-09 tab, PO, l tablet 11:38: Daily, # [place] 00 90 tab, 3 Refill(s) normal No [...] SARS-COV-2 COVID-19 2022-03-05 Completed Unive rsity of DIMITIRS-SUCROSE 00:00:00 [place] [facility] VACCINE [facility] Y[facility]+, [...] Completed Unive rsity of PFIZER VACCINE 00:00:00 [facility] [place] [facility] SARS-COV-2 COVID-19 2020-07-23 Completed Unive rsity of PFIZER VACCINE 00:00:00 [facility] [place] [facility] SARS-COV-2 COVID-19 2020-07-23 Completed Unive rsity of PFIZER VACCINE 00:00:00 [facility] [place] [facility] SARS-COV-2 COVID-19 2020-07-23 Completed Unive rsity of PFIZER VACCINE 00:00:00 [facility] [place] [facility] SARS-COV-2 COVID-19 2020-07-23 Completed Unive rsity of PFIZER VACCINE 00:00:00 [facility] [place] [facility] SARS-COV-2 COVID-19 2020-07-23 Completed Unive rsity of PFIZER VACCINE 00:00:00 [facility] [place] [facility] SARS-COV-2 COVID-19 2020-07-23 Completed Unive rsity of PFIZER VACCINE 00:00:00 [facility] [place] [facility] SARS-COV-2 COVID-19 2020-07-23 Completed Unive rsity of PFIZER VACCINE 00:00:00 [facility] [place] [facility] SARS-COV-2 COVID-19 2020-07-23 Completed Unive rsity of PFIZER VACCINE 00:00:00 [facility] [place] [facility] SARS-COV-2 COVID-19 2020-07-23 Completed Unive rsity of PFIZER VACCINE 00:00:00 [facility] [place] [facility] SARS-COV-2 COVID-19 2020-07-23 Completed Unive rsity of PFIZER VACCINE 00:00:00 [facility] [place] [facility] SARS-COV-2 COVID-19 2020-07-23 Completed Unive rsity of PFIZER VACCINE 00:00:00 [facility] [place] [facility] SARS-COV-2 COVID-19 2020-07-23 Completed Unive rsity of PFIZER VACCINE 00:00:00 [facility] [place] [facility] SARS-COV-2 COVID-19 2020-07-23 Completed Unive rsity of PFIZER VACCINE 00:00:00 [facility] [place] [facility] SARS-COV-2 COVID-19 2020-07-23 Completed Unive rsity of PFIZER VACCINE 00:00:00 [facility] [place] [facility] SARS-COV-2 COVID-19 2020-07-23 Completed Unive rsity of PFIZER VACCINE 00:00:00 [facility] [place] [facility] SARS-COV-2 COVID-19 2020-07-23 Completed Unive rsity of PFIZER VACCINE 00:00:00 [facility] SARS-COV-2 COVID-19 2020-07-23 Completed Unive rsity of PFIZER VACCINE 00:00:00 [facility] SARS-COV-2 COVID-19 2020-07-23 Completed Unive rsity of PFIZER VACCINE 00:00:00 [facility] SARS-COV-2 COVID-19 2020-07-23 Completed Unive rsity of PFIZER VACCINE 00:00:00 [facility] PFIZER COVID-19 2020-07-23 Completed [facility] VACCINATION 00:00:00 [facility] PFIZER COVID-19 2020-07-23 Completed [facility] VACCINATION 00:00:00 [facility] PFIZER COVID-19 2020-07-23 Completed [facility] VACCINATION 00:00:00 [facility] PFIZER COVID-19 2020-07-23 Completed [facility] VACCINATION 00:00:00 [facility] PFIZER COVID-19 2020-07-23 Completed [facility] VACCINATION 00:00:00 [facility] PFIZER COVID-19 2020-07-23 Completed [facility] VACCINATION 00:00:00 [facility] PFIZER COVID-19 2020-07-23 Completed [facility] VACCINATION 00:00:00 [facility] PFIZER COVID-19 2020-07-23 Completed [facility] VACCINATION 00:00:00 [facility] PFIZER COVID-19 2020-07-23 Completed [facility] VACCINATION 00:00:00 [facility] PFIZER COVID-19 2020-07-23 Completed [facility] VACCINATION 00:00:00 [facility] PFIZER COVID-19 2020-07-23 Completed [facility] VACCINATION 00:00:00 [facility] PFIZER COVID-19 2020-07-23 Completed [facility] VACCINATION 00:00:00 [facility] PFIZER COVID-19 2020-07-23 Completed [facility] VACCINATION 00:00:00 [facility] PFIZER COVID-19 2020-07-23 Completed [facility] VACCINATION 00:00:00 [facility] PFIZER COVID-19 2020-07-23 Completed [facility] VACCINATION 00:00:00 [facility] PFIZER COVID-19 2020-07-23 Completed [facility] VACCINATION 00:00:00 [facility] PFIZER COVID-19 2020-07-23 Completed [facility] VACCINATION 00:00:00 [facility] PFIZER COVID-19 2020-07-23 Completed [facility] VACCIN[facility] 00:00:00 [facility] PFIZER COVID-19 2020-07-23 Completed [facility] VACC[facility] 00:00:00 [facility] PFIZER COVID-19 2020-07-23 Completed [facility] VACCIN[facility] 00:00:00 [facility] PFIZER COVID-19 2020-07-23 Completed [facility] VACCIN[facility] 00:00:00 [facility] PEG COVID-19 2020-07-23 Completed [facility] VACCIN[facility] 00:00:00 [facility] PEG COVID-19 2020-07-23 Completed [facility] VACCIN[facility] 00:00:00 [facility] PEG COVID-19 2020-07-23 Completed [facility] VACC[facility] 00:00:00 [facility] PEG COVID-19 2020-07-23 Completed [facility] VACCIN[facility] 00:00:00 [facility] PEG COVID-19 2020-07-23 Completed [facility] VACCIN[facility] 00:00:00 [facility] PEG COVID-19 2020-07-23 Completed [facility] VACC[facility] 00:00:00 [facility] PEG COVID-19 2020-07-23 Completed [facility] VACCIN[facility] 00:00:00 [facility] PEG COVID-19 2020-07-23 Completed [facility] VACC[facility] 00:00:00 [facility] PEG FELIZID-19 2020-07-23 Completed [facility] VACC[facility] 00:00:00 [facility] PEG COVID-19 2020-07-23 Completed [facility] VACC[facility] 00:00:00 [facility] PEG COVID-19 2020-07-23 Completed [facility] VACCINATION 00:00:00 [facility] PEG COVID-19 2020-07-23 Completed [facility] VACCIN[facility] 00:00:00 [facility] PEG COVID-19 2020-07-23 Completed [facility] VACCINATION 00:00:00 [facility] PEG COVID-19 2020-07-23 Completed [facility] VACC[facility] 00:00:00 [facility] PEG COVID-19 2020-07-23 Completed [facility] VACCIN[facility] 00:00:00 [facility] PEG COVID-19 2020-07-23 Completed [facility] VACCINATION 00:00:00 [facility] PEG COVID-19 2020-07-23 Completed [facility] VACCINATION 00:00:00 [facility] PEG COVID-19 2020-07-23 Completed [facility] VACCINATION 00:00:00 [facility] PFIZER COVID-19 2020-07-23 Completed [facility] VACCINATION 00:00:00 [facility] PEG COVID-19 2020-07-23 Completed [facility] VACCINATION 00:00:00 [facility] PEG COVID-19 2020-07-23 Completed [facility] VACCINATION 00:00:00 [facility] PEG COVID-19 2020-07-23 Completed [facility] VACCINATION 00:00:00 [facility] PFIZER COVID-19 2020-07-23 Completed [facility] VACCINATION 00:00:00 [facility] PFIZER COVID-19 2020-07-23 Completed [facility] VACCINATION 00:00:00 [facility] PFIZER COVID-19 2020-07-23 Completed [facility] VACCINATION 00:00:00 [facility] PEG COVID-19 2020-07-23 Completed [facility] VACCINATION 00:00:00 [facility] PEG COVID-19 2020-07-23 Completed [facility] VACCINATION 00:00:00 [facility] PFIZER COVID-19 2020-07-23 Completed [facility] VACCINATION 00:00:00 [facility] PFIZER COVID-19 2020-07-23 Completed [facility] VACCINATION 00:00:00 [facility] PFIZER COVID-19 2020-07-23 Completed [facility] VACCINATION 00:00:00 [facility] PEG COVID-19 2020-07-23 Completed [facility] VACCINATION 00:00:00 [facility] PEG COVID-19 2020-07-23 Completed [facility] VACCINATION 00:00:00 [facility] PEG COVID-19 2020-07-23 Completed [facility] VACCINATION 00:00:00 [facility] PEG COVID-19 2020-07-23 Completed [facility] VACCINATION 00:00:00 [facility] PEG COVID-19 2020-07-23 Completed [facility] VACCINATION 00:00:00 [facility] PEG COVID-19 2020-07-23 Completed [facility] VACCINATION 00:00:00 [facility] PEG COVID-19 2020-07-23 Completed [facility] VACCINATION 00:00:00 [facility] PFIZER COVID-19 2020-07-23 Completed [facility] VACCINATION 00:00:00 [facility] PFIZER COVID-19 2020-07-23 Completed [facility] VACCINATION 00:00:00 [facility] PFIZER COVID-19 2020-07-23 Completed [facility] VACCINATION 00:00:00 [facility] PFIZER COVID-19 2020-07-23 Completed [facility] VACCINATION 00:00:00 [facility] PFIZER COVID-19 2020-07-23 Completed [facility] VACCINATION 00:00:00 [facility] PFIZER COVID-19 2020-07-23 Completed [facility] VACCINATION 00:00:00 [facility] PFIZER COVID-19 2020-07-23 Completed [facility] VACCINATION 00:00:00 [facility] PFIZER COVID-19 2020-07-23 Completed [facility]:00 [facility] PFIZER COVID-19 2020-07-23 Completed [facility] VACC[facility] 00:00:00 [facility] PFIZER COVID-19 2020-07-23 Completed [facility] VACCINATION 00:00:00 [facility] SARS-COV-2 COVID-19 2020-07-02 Completed [facility] PFIZER VACCINE 00:00:00 [facility] SARS-COV-2 COVID-19 2020-07-02 Completed [facility] PFIZER VACCINE 00:00:00 [facility] SARS-COV-2 COVID-19 2020-07-02 Completed [facility] PFIZER VACCINE 00:00:00 [facility] SARS-COV-2 COVID-19 2020-07-02 Completed [facility] PFIZER VACCINE 00:00:00 [facility] SARS-COV-2 COVID-19 2020-07-02 Completed [facility] PFIZER VACCINE 00:00:00 [facility] SARS-COV-2 COVID-19 2020-07-02 Completed [facility] PFIZER VACCINE 00:00:00 [facility] SARS-COV-2 COVID-19 2020-07-02 Completed [facility] PFIZER VACCINE 00:00:00 [facility] SARS-COV-2 COVID-19 2020-07-02 Completed [facility] PFIZER VACCINE 00:00:00 [facility] SARS-COV-2 COVID-19 2020-07-02 Completed [facility] PFIZER VACCINE 00:00:00 [facility] SARS-COV-2 COVID-19 2020-07-02 Completed [facility] PFIZER VACCINE 00:00:00 [facility] SARS-COV-2 COVID-19 2020-07-02 Completed [facility] PFIZER VACCINE 00:00:00 [facility] SARS-COV-2 COVID-19 2020-07-02 Completed [facility] PFIZER VACCINE 00:00:00 [facility] SARS-COV-2 COVID-19 2020-07-02 Completed [facility] PFIZER VACCINE 00:00:00 [facility] SARS-COV-2 COVID-19 2020-07-02 Completed [facility] PFIZER VACCINE 00:00:00 [facility] SARS-COV-2 COVID-19 2020-07-02 Completed [facility] PFIZER VACCINE 00:00:00 [facility] SARS-COV-2 COVID-19 2020-07-02 Completed [facility] PFIZER VACCINE 00:00:00 [facility] SARS-COV-2 COVID-19 2020-07-02 Completed [facility] PFIZER VACCINE 00:00:00 [facility] SARS-COV-2 COVID-19 2020-07-02 Completed [facility] PFIZER VACCINE 00:00:00 [facility] SARS-COV-2 COVID-19 2020-07-02 Completed [facility] PFIZER VACCINE 00:00:00 [facility] SARS-COV-2 COVID-19 2020-07-02 Completed [facility] PFIZER VACCINE 00:00:00 [facility] PFIZER COVID-19 2020-07-02 Completed [facility] VACCINATION 00:00:00 [facility] PFIZER COVID-19 2020-07-02 Completed [facility] VACCINATION 00:00:00 [facility] PFIZER COVID-19 2020-07-02 Completed [facility] VACCINATION 00:00:00 [facility] PFIZER COVID-19 2020-07-02 Completed [facility] VACCINATION 00:00:00 [facility] PFIZER COVID-19 2020-07-02 Completed [facility] VACCINATION 00:00:00 [facility] PFIZER COVID-19 2020-07-02 Completed [facility] VACCINATION 00:00:00 [facility] PFIZER COVID-19 2020-07-02 Completed [facility] VACCINATION 00:00:00 [facility] PFIZER COVID-19 2020-07-02 Completed [facility] VACCINATION 00:00:00 [facility] PFIZER COVID-19 2020-07-02 Completed [facility] VACCINATION 00:00:00 [facility] PFIZER COVID-19 2020-07-02 Completed [facility] VACCINATION 00:00:00 [facility] PFIZER COVID-19 2020-07-02 Completed [facility] VACCINATION 00:00:00 [facility] PFIZER COVID-19 2020-07-02 Completed [facility] VACCINATION 00:00:00 [facility] PFIZER COVID-19 2020-07-02 Completed [facility] VACCINATION 00:00:00 [facility] PFIZER COVID-19 2020-07-02 Completed [facility] VACCINATION 00:00:00 [facility] PFIZER COVID-19 2020-07-02 Completed [facility] VACCINATION 00:00:00 [facility] PFIZER COVID-19 2020-07-02 Completed [facility] VACCINATION 00:00:00 [facility] PFIZER COVID-19 2020-07-02 Completed [facility] VACCINATION 00:00:00 [facility] PFIZER COVID-19 2020-07-02 Completed [facility] VACCINATION 00:00:00 [facility] PFIZER COVID-19 2020-07-02 Completed [facility] VACCINATION 00:00:00 [facility] PFIZER COVID-19 2020-07-02 Completed [facility] VACCINATION 00:00:00 [facility] PFIZER COVID-19 2020-07-02 Completed [facility] VACCINATION 00:00:00 [facility] PFIZER COVID-19 2020-07-02 Completed [facility] VACCINATION 00:00:00 [facility] PEG COVID-19 2020-07-02 Completed [facility] VACCINATION 00:00:00 [facility] PEG COVID-19 2020-07-02 Completed [facility] VACCINATION 00:00:00 [facility] PFIZER COVID-19 2020-07-02 Completed [facility] VACCINATION 00:00:00 [facility] PFIZER COVID-19 2020-07-02 Completed [facility] VACCINATION 00:00:00 [facility] PFIZER COVID-19 2020-07-02 Completed [facility] VACCINATION 00:00:00 [facility] PFIZER COVID-19 2020-07-02 Completed [facility] VACCINATION 00:00:00 [facility] PFIZER COVID-19 2020-07-02 Completed [facility] VACCINATION 00:00:00 [facility] PFIZER COVID-19 2020-07-02 Completed [facility] VACCINATION 00:00:00 [facility] PFIZER COVID-19 2020-07-02 Completed [facility] VACCINATION 00:00:00 [facility] PFIZER COVID-19 2020-07-02 Completed [facility] VACCINATION 00:00:00 [facility] PFIZER COVID-19 2020-07-02 Completed [facility] VACCINATION 00:00:00 [facility] PFIZER COVID-19 2020-07-02 Completed [facility] VACCINATION 00:00:00 [facility] PFIZER COVID-19 2020-07-02 Completed [facility] VACCINATION 00:00:00 [facility] PFIZER COVID-19 2020-07-02 Completed [facility] VACCINATION 00:00:00 [facility] PFIZER COVID-19 2020-07-02 Completed [facility] VACCINATION 00:00:00 [facility] PFIZER COVID-19 2020-07-02 Completed [facility] VACCINATION 00:00:00 [facility] PFIZER COVID-19 2020-07-02 Completed [facility] VACCINATION 00:00:00 [facility] PFIZER COVID-19 2020-07-02 Completed [facility] VACCINATION 00:00:00 [facility] PFIZER COVID-19 2020-07-02 Completed [facility] VACCINATION 00:00:00 [facility] PFIZER COVID-19 2020-07-02 Completed [facility] VACCINATION 00:00:00 [facility] PFIZER COVID-19 2020-07-02 Completed [facility] VACCINATION 00:00:00 [facility] PFIZER COVID-19 2020-07-02 Completed [facility] VACCINATION 00:00:00 [facility] PFIZER COVID-19 2020-07-02 Completed [facility] VACCINATION 00:00:00 [facility] PFIZER COVID-19 2020-07-02 Completed [facility] VACCINATION 00:00:00 [facility] PFIZER COVID-19 2020-07-02 Completed [facility] VACCINATION 00:00:00 [facility] PFIZER COVID-19 2020-07-02 Completed [facility] VACCINATION 00:00:00 [facility] PFIZER COVID-19 2020-07-02 Completed [facility] VACCINATION 00:00:00 [facility] PFIZER COVID-19 2020-07-02 Completed [facility] VACCINATION 00:00:00 [facility] PFIZER COVID-19 2020-07-02 Completed [facility] VACCINATION 00:00:00 [facility] PFIZER COVID-19 2020-07-02 Completed [facility] VACCINATION 00:00:00 [facility] PFIZER COVID-19 2020-07-02 Completed [facility] VACCINATION 00:00:00 [facility] PFIZER COVID-19 2020-07-02 Completed [facility] VACCINATION 00:00:00 [facility] PFIZER COVID-19 2020-07-02 Completed [facility] VACCINATION 00:00:00 [facility] PFIZER COVID-19 2020-07-02 Completed [facility] VACCINATION 00:00:00 [facility] PFIZER COVID-19 2020-07-02 Completed [facility] VACCINATION 00:00:00 [facility] PFIZER COVID-19 2020-07-02 Completed [facility] VACCINATION 00:00:00 [facility] PFIZER COVID-19 2020-07-02 Completed [facility] VACCINATION 00:00:00 [facility] PFIZER COVID-19 2020-07-02 Completed [facility] VACCINATION 00:00:00 [facility] PFIZER COVID-19 2020-07-02 Completed [facility] VACCINATION 00:00:00 [facility] PFIZER COVID-19 2020-07-02 Completed [facility] VACCINATION 00:00:00 [facility] PFIZER COVID-19 2020-07-02 Completed [facility] VACCINATION 00:00:00 [facility] PFIZER COVID-19 2020-07-02 Completed [facility] VACCINATION 00:00:00 [facility] PFIZER COVID-19 2020-07-02 Completed [facility] VACCINATION 00:00:00 [facility] PFIZER COVID-19 2020-07-02 Completed [facility] VACCINATION 00:00:00 [facility] PFIZER COVID-19 2020-07-02 Completed [facility] VACCINATION 00:00:00 [facility] PFIZER COVID-19 2020-07-02 Completed [facility] VACCINATION 00:00:00 [facility] Influenza Virus 2017-03-08 Completed [facility] Vaccine 00:00:00 [facility] Influenza Virus 2017-03-08 Completed [facility] Vaccine 00:00:00 [facility] Influenza Virus 2017-03-08 Completed [facility] Vaccine 00:00:00 [facility] Influenza Virus 2017-03-08 Completed [facility] Vaccine 00:00:00 [facility] Influenza Virus 2017-03-08 Completed [facility] Vaccine 00:00:00 [facility] Influenza Virus 2017-03-08 Completed [facility] Vaccine 00:00:00 [facility] Influenza Virus 2017-03-08 Completed [facility] Vaccine 00:00:00 [facility] Influenza Virus 2017-03-08 Completed [facility] Vaccine 00:00:00 [facility] Influenza Virus 2017-03-08 Completed [facility] Vaccine 00:00:00 [facility] Influenza Virus 2017-03-08 Completed [facility] Vaccine 00:00:00 [facility] Influenza Virus 2017-03-08 Completed [facility] Vaccine 00:00:00 [facility] Influenza Virus 2017-03-08 Completed [facility] Vaccine 00:00:00 [facility] Influenza Virus 2017-03-08 Completed [facility] Vaccine 00:00:00 [facility] Influenza Virus 2017-03-08 Completed [facility] Vaccine 00:00:00 [facility] Influenza Virus 2017-03-08 Completed [facility] Vaccine 00:00:00 [facility] Influenza Virus 2017-03-08 Completed [facility] Vaccine 00:00:00 [facility] Influenza Virus 2017-03-08 Completed [facility] Vaccine 00:00:00 [facility] Influenza Virus 2017-03-08 Completed [facility] Vaccine 00:00:00 [facility] Influenza Virus 2017-03-08 Completed [facility] Vaccine 00:00:00 [facility] Influenza Virus 2017-03-08 Completed [facility] Vaccine 00:00:00 [facility] Influenza Virus 2017-03-08 Completed [facility] Vaccine 00:00:00 [facility] Influenza Virus 2017-03-08 Completed [facility] Vaccine 00:00:00 [facility] Influenza Virus 2017-03-08 Completed [facility] Vaccine 00:00:00 [facility] Influenza Virus 2017-03-08 Completed [facility] Vaccine 00:00:00 [facility] Influenza Virus 2014-01-30 Completed [facility] Vaccine (3+ yrs) 00:00:00 [facility] Pneumococcal 13 2014-01-30 Completed [facility] of Conjugate, PCV13 00:00:00 [facility] dical (Prevnar 13) Branch Influenza Virus 2014-01-30 Completed [facility] Vaccine (3+ yrs) 00:00[facility]00 [facility] Pneumococcal 13 2014-01-30 Completed [facility] of Conjugate, PCV13 00:00:00 [facility] dical (Prevnar 13) Branch Influenza Virus 2014-01-30 Completed [facility] Vaccine (3+ yrs) 00:00[facility]00 [facility] Pneumococcal 13 2014-01-30 Completed [facility] of Conjugate, PCV13 00:00:00 [facility] dical (Prevnar 13) Branch Influenza Virus 2014-01-30 Completed [facility] Vaccine (3+ yrs) 00:00:00 [facility] Pneumococcal 13 2014-01-30 Completed [facility] of Conjugate, PCV13 00:00:00 [facility] dical (Prevnar 13) Branch Influenza Virus 2014-01-30 Completed [facility] Vaccine (3+ yrs) 00:00:00 [facility] Pneumococcal 13 2014-01-30 Completed [facility] y [...] [facility] Pneumococcal 2012-02-16 Completed [facility] o f Polysaccharide, 00:00:00 [place] [facility] PPSV23 (PNEUMOVAX) Branch Influenza Virus 2012-02-16 Completed [facility] of Vaccine 00:00:00 [facility] PPD (TB) 2012-02-16 Completed [facility] of 00:00:00 [facility] Pneumococcal 2012-02-16 Completed [facility] o f Polysaccharide, 00:00:00 [place] [facility] PPSV23 (PNEUMOVAX) Branch Influenza Virus 2012-02-16 Completed [facility] Vaccine 00:00:00 [facility] PPD (TB) 2012-02-16 Completed [facility] 00:00:00 [facility] Pneumococcal 2012-02-16 Completed [facility] o f Polysaccharide, 00:00:00 [place] [facility] PPSV23 (PNEUMOVAX) Branch Influenza Virus 2012-02-16 Completed [facility] Vaccine 00:00:00 [facility] PPD (TB) 2012-02-16 Completed [facility] of 00:00:00 [facility] Pneumococcal 2012-02-16 Completed [facility] o f Polysaccharide, 00:00:00 [place] [facility] PPSV23 (PNEUMOVAX) Branch Influenza Virus 2012-02-16 Completed [facility] Vaccine 00:00:00 [facility] PPD (TB) 2012-02-16 Completed [facility] of 00:00:00 [facility] Pneumococcal 2012-02-16 Completed [facility] o f Polysaccharide, 00:00:00 [place] [facility] PPSV23 (PNEUMOVAX) Branch Influenza Virus 2012-02-16 Completed [facility] Vaccine 00:00:00 [facility] PPD (TB) 2012-02-16 Completed [facility] of 00:00:00 [facility] Pneumococcal 2012-02-16 Completed [facility] Polysaccharide, 00:00:00 [place] [facility] PPSV23 (PNEUMOVAX) Branch Influenza Virus 2012-02-16 Completed [facility] Vaccine 00:00:00 [facility] PPD (TB) 2012-02-16 Completed [facility] of 00:00:00 [facility] Pneumococcal 2012-02-16 Completed [facility] f Polysaccharide, 00:00:00 [place] [facility] PPSV23 (PNEUMOVAX) Branch Influenza Virus 2012-02-16 Completed [facility] Vaccine 00:00:00 [facility] PPD (TB) 2012-02-16 Completed [facility] of 00:00:00 [facility] Pneumococcal 2012-02-16 Completed [facility] o f Polysaccharide, 00:00:00 [place] [facility] PPSV23 (PNEUMOVAX) Branch Influenza Virus 2012-02-16 Completed [facility] Vaccine 00:00:00 [facility] PPD (TB) 2012-02-16 Completed [facility] of 00:00:00 [facility] Pneumococcal 2012-02-16 Completed [facility] o f Polysaccharide, 00:00:00 [place] [facility] PPSV23 (PNEUMOVAX) Branch Influenza Virus 2012-02-16 Completed [facility] Vaccine 00:00:00 [facility] PPD (TB) 2012-02-16 Completed [facility] of 00:00:00 [facility] Pneumococcal 2012-02-16 Completed [facility] o f Polysaccharide, 00:00:00 [place] [facility] PPSV23 (PNEUMOVAX) Branch Influenza Virus 2012-02-16 Completed [facility] Vaccine 00:00:00 [facility] PPD (TB) 2012-02-16 Completed [facility] of 00:00:00 [facility] Pneumococcal 2012-02-16 Completed [facility] o f Polysaccharide, 00:00:00 [place] [facility] PPSV23 (PNEUMOVAX) Branch Influenza Virus 2012-02-16 Completed [facility] Vaccine 00:00:00 [facility] PPD (TB) 2012-02-16 Completed [facility] of 00:00:00 [facility] Pneumococcal 2012-02-16 Completed [facility] o f Polysaccharide, 00:00:00 [place] [facility] PPSV23 (PNEUMOVAX) Branch Influenza Virus 2012-02-16 Completed [facility] Vaccine 00:00:00 [facility] PPD (TB) 2012-02-16 Completed [facility] 00:00:00 [facility] Pneumococcal 2012-02-16 Completed [facility] Polysaccharide, 00:00:00 [place] [facility] PPSV23 (PNEUMOVAX) Branch Influenza Virus 2012-02-16 Completed [facility] Vaccine 00:00:00 [facility] PPD (TB) 2012-02-16 Completed [facility] of 00:00:00 [facility] Pneumococcal 2012-02-16 Completed [facility] Polysaccharide, 00:00:00 [place] [facility] PPSV23 (PNEUMOVAX) Branch Influenza Virus 2012-02-16 Completed [facility] Vaccine 00:00:00 [facility] PPD (TB) 2012-02-16 Completed [facility] of 00:00:00 [facility] Pneumococcal 2012-02-16 Completed [facility] o f Polysaccharide, 00:00:00 [place] [facility] PPSV23 (PNEUMOVAX) Branch Influenza Virus 2012-02-16 Completed [facility] Vaccine 00:00:00 [facility] PPD (TB) 2012-02-16 Completed [facility] of 00:00:00 [facility] Pneumococcal 2012-02-16 Completed [facility] o f Polysaccharide, 00:00:00 [place] [facility] PPSV23 (PNEUMOVAX) Branch Influenza Virus 2012-02-16 Completed [facility] Vaccine 00:00:00 [facility] PPD (TB) 2012-02-16 Completed [facility] of 00:00:00 [facility] Pneumococcal 2012-02-16 Completed [facility] o f Polysaccharide, 00:00:00 [place] [facility] PPSV23 (PNEUMOVAX) Branch Influenza Virus 2012-02-16 Completed [facility] Vaccine 00:00:00 [facility] PPD (TB) 2012-02-16 Completed [facility] of 00:00:00 [facility] Pneumococcal 2012-02-16 Completed [facility] o f Polysaccharide, 00:00:00 [place] [facility] PPSV23 (PNEUMOVAX) Branch Influenza Virus 2012-02-16 Completed [facility] Vaccine 00:00:00 [facility] PPD (TB) 2012-02-16 Completed [facility] of 00:00:00 [facility] Pneumococcal 2012-02-16 Completed [facility] o f Polysaccharide, 00:00:00 [place] [facility] PPSV23 (PNEUMOVAX) Branch Influenza Virus 2012-02-16 Completed [facility] Vaccine 00:00:00 [facility] PPD (TB) 2012-02-16 Completed [facility] of 00:00:00 [facility] Pneumococcal 2012-02-16 Completed [facility] o f Polysaccharide, 00:00:00 [place] [facility] PPSV23 (PNEUMOVAX) Branch Influenza Virus 2012-02-16 Completed [facility] of Vaccine 00:00:00 [facility] PPD (TB) 2012-02-16 Completed [facility] of 00:00:00 [facility] Pneumococcal 2012-02-16 Completed [facility] o f Polysaccharide, 00:00:00 [place] [facility] PPSV23 (PNEUMOVAX) Branch Influenza Virus 2012-02-16 Completed [facility] Vaccine 00:00:00 [facility] PPD (TB) 2012-02-16 Completed [facility] of 00:00:00 [facility] Pneumococcal 2012-02-16 Completed [facility] o f Polysaccharide, 00:00:00 [place] [facility] PPSV23 (PNEUMOVAX) Branch Influenza Virus 2012-02-16 Completed [facility] Vaccine 00:00:00 [facility] PPD (TB) 2012-02-16 Completed [facility] of 00:00:00 [facility] Pneumococcal 2012-02-16 Completed University o f Polysaccharide, [...] Completed Unive [facility]ity of Dosage 00:00:00 [facility] [facility] Hep B, Adol or Pedi 2011-03-17 Completed Unive rsity of Dosage 00:00:00 [facility] Hep B, Adol or Pedi 2011-03-17 Completed Unive rsity of Dosage 00:00:00 [facility] Hep B, Adol or Pedi 2011-03-17 Completed Unive rsity of Dosage 00:00:00 [facility] Hep B, Adol or Pedi 2011-03-17 Completed Unive rsity of Dosage 00:00:00 [facility] Hep B, Adol or Pedi 2011-03-17 Completed Unive rsity of Dosage 00:00:00 [facility] Influenza Virus 2011-02-10 Completed Universit y of Vaccine 00:00:00 [facility] Hep B, Adol or Pedi 2011-02-10 Completed Unive rsity of Dosage 00:00:00 [facility] Influenza Virus 2011-02-10 Completed Universit y of Vaccine 00:00:00 [facility] Hep B, Adol or Pedi 2011-02-10 Completed Unive rsity of Dosage 00:00:00 [facility] Influenza Virus 2011-02-10 Completed Universit y of Vaccine 00:00:00 [facility] Hep B, Adol or Pedi 2011-02-10 Completed Unive rsity of Dosage 00:00:00 [facility] Influenza Virus 2011-02-10 Completed Universit y of Vaccine 00:00:00 [facility] Hep B, Adol or Pedi 2011-02-10 Completed Unive rsity of Dosage 00:00:00 [facility] Influenza Virus 2011-02-10 Completed Universit y of Vaccine 00:00:00 [facility] Hep B, Adol or Pedi 2011-02-10 Completed Unive rsity of Dosage 00:00:00 [facility] Influenza Virus 2011-02-10 Completed Universit y of Vaccine 00:00:00 [facility] Hep B, Adol or Pedi 2011-02-10 Completed Unive rsity of Dosage 00:00:00 [facility] Influenza Virus 2011-02-10 Completed Universit y of Vaccine 00:00:00 [facility] Hep B, Adol or Pedi [...] University o f Polysaccharide, 00:00:[address] [facility] [place] ical PPSV23 (PNEUMOVAX) Branch PPD (TB) 2001-10-04 [...] 00:00:00 [facility] PFIZER COVID-19 Unknown Completed [facility] P[facility] COVID-19 Unknown Completed [facility] PFIZ[facility] COVID-19 Unknown Completed [facility] PFIZ[facility] COVID-19 Unknown Completed [facility] PFIZ[facility] COVID-19 Unknown Completed [facility] PFIZ[facility] COVID-19 Unknown Completed [facility] PFIZ[facility] COVID-19 Unknown Completed [facility] PFIZER COVID-19 Unknown Completed [facility] PFIZ[facility] COVID-19 Unknown Completed [facility] PFIZ[facility] COVID-19 Unknown Completed [facility] PFIZ[facility] COVID-19 Unknown Completed [facility] PFIZER COVID-19 Unknown Completed [facility] PFIZER COVID-19 Unknown Completed [facility] PFIZER COVID-19 Unknown Completed [facility] Vital Signs Vital Name Observation Time Observation Value Comments Source Systolic blood 2023-01-27 23:00:00 179 mm[Hg] Univer sity of pressure [facility] Diastolic blood 2023-01-27 23:00:00 101 mm[Hg] Unive rsity of pressure [facility] Heart rate 2023-01-27 23:00:00 58 /min Universi ty of [facility] Respiratory rate 2023-01-27 23:00:00 12 /min Univ ersity of [facility] Oxygen saturation in 2023-01-27 23:00:00 99 /min University of Arterial blood by [place] [facility] [employer] [facility] Pulse oximetry Branch Body temperature 2023-01-27 15:46:00 37.28 Amina Univ ers[facility] Body weight 2023-01-27 15:46:00 79.379 kg [facility] BMI 2023-01-27 15:46:00 30.04 kg/m2 [facility] Systolic blood 2022-05-10 22:00:00 159 mm[Hg] Univer sity of pressure [facility] Diastolic blood 2022-05-10 22:00:00 87 mm[Hg] Unive rsity of pressure [facility] Heart rate 2022-05-10 22:00:00 56 /min [facility] Body temperature 2022-05-10 22:00:00 36.61 Amina Univ ersity of [facility] Respiratory rate 2022-05-10 22:00:00 17 /min Univ ersity of [facility] Oxygen saturation in 2022-05-10 22:00:00 98 /min University of Arterial blood by [facility] Pulse oximetry Branch Body weight 2022-05-10 [...] University of Arterial blood by [place] [employer] Pulse oximetry Branch Body temperature 2022-05-08 22:22:00 [...] University of Arterial blood by [place] [facility] [employer] [facility] Pulse oximetry Branch Body temperature 2022-05-06 [...] 96 /min University of Arterial blood by [facility] Pulse oximetry Branch Systolic blood 2022-03-05 [...] 21:41:00 98 /min University Arterial blood by [facility] Pulse oximetry Branch Body height 2022-02-11 16:02:00 162.6 cm [facility] [place] [facility] [place] Body weight 2022-02-11 16:02:00 79.379 kg [facility] [place] [facility] [place] BMI 2022-02-11 16:02:00 30.04 kg/m2 Universi ty [facility] Systolic blood 2021-11-20 13:47:00 165 mm[Hg] Univer sity of [facility] Diastolic blood 2021-11-20 13:47:00 83 mm[Hg] Unive rsity of [facility] Heart rate 2021-11-20 13:47:00 58 /min Universi ty [facility] Body temperature 2021-11-20 13:42:00 36.39 [facility]a [facility] Respiratory rate 2021-11-20 13:42:00 16 /min [facility] Body height 2021-11-20 13:42:00 162.6 cm Universi ty of [facility] Body weight 2021-11-20 13:42:00 84.369 kg Universi ty [facility] BMI 2021-11-20 13:42:00 31.93 kg/m2 Universi ty [facility] Systolic blood 2021-07-14 15:18:00 142 mm[Hg] [facility] Diastolic blood 2022-05-10 22:00:00 87 mm[Hg] Unive rsity of [facility] Heart rate 2022-05-10 22:00:00 56 /min Universi ty [facility] Body temperature 2022-05-10 22:00:00 36.61 Amina Univ ers[facility] Respiratory rate 2022-05-10 22:00:00 17 /min Univ ersity of [facility] Oxygen saturation in 2022-05-10 22:00:00 98 /min University of Arterial blood by [facility] Pulse oximetry Branch Body weight 2022-05-10 16:29:00 78.926 kg [facility] BMI 2022-05-10 16:29:00 29.87 kg/m2 [facility] [place] [facility] [place] Body height 2022-05-06 20:12:00 162.6 cm Universi ty of [facility] Systolic blood 2022-03-05 15:23:00 167 mm[Hg] Univer sity of pressure [facility] Diastolic blood 2022-03-05 15:23:00 105 mm[Hg] Unive rsity of pressure [facility] Heart rate 2022-03-05 15:23:00 49 /min Universi ty of [facility] Body temperature 2022-03-05 15:18:00 36.67 Amina Univ [facility] Respiratory rate 2022-03-05 15:18:00 18 /min Univ ersity of [facility] Body height 2022-03-05 15:18:00 162.6 cm [facility] [place] [facility] [place] Body weight 2022-03-05 15:18:00 74.707 kg [facility] BMI 2022-03-05 15:18:00 28.27 kg/m2 Universi ty of [facility] Oxygen saturation in 2022-02-16 21:41:00 98 /min University of Arterial blood by [facility] Pulse oximetry Branch Systolic blood 2020-12-08 15:48:00 125 mm[Hg] Method ist [facility] pressure Diastolic blood 2020-12-08 15:48:00 76 mm[Hg] [facility] pressure Heart rate 2020-12-08 15:48:00 64 /min [facility] Body [facility] 2020-12-08 15:48:00 36.61 Amina [facility] Respiratory rate 2020-12-08 15:48:00 17 /min [facility] Body height 2020-12-08 15:48:00 162.6 cm [facility] Body weight 2020-12-08 15:48:00 98.884 kg [facility] BMI 2020-12-08 15:48:00 37.42 kg/m2 [facility] Oxygen saturation in 2020-12-08 15:48:00 97 /min [facility] Arterial blood by Pulse oximetry Respitory Rate 2020-08-30 13:00:00 Memori al Marty Systolic (mm Hg) 2020-08-30 13:00:00 Caesar rial Marty Diastolic (mm Hg) 2020-08-30 13:00:00 Mem orial Marty Systolic (mm Hg) 2020-08-30 11:00:00 Caesar rial [place] Diastolic (mm Hg) 2020-08-30 11:00:00 Mem orial Marty Temperature Oral (F) 2020-08-30 11:00:00 98.4 F [facility] [place] Respitory Rate 2020-08-30 11:00:00 Memori al Marty Respitory Rate 2020-08-30 10:00:00 Memori al [place] Systolic (mm Hg) 2020-08-30 10:00:00 Caesar rial Marty Diastolic (mm Hg) 2020-08-30 10:00:00 Mem orial Marty Temperature Oral (F) 2020-08-30 00:00:00 96.9 F [facility] [place] Temperature Oral (F) 2020-08-29 11:26:00 97.6 F [facility] Height 2020-08-29 10:30:00 162.56 cm [facility] Weight 2020-08-29 10:30:00 [facility] BMI Calculated 2020-08-29 10:30:00 Memori al Marty Procedures Procedure Date / Time Performing Clinician Source Performed PROTHROMBIN TIME / INR 2023-01-27 21:09:00 [facility] Coles [facility] ACTIVATED PARTIAL THRMPLAS 2023-01-27 21:09:00 [facility]EL[facility] W 2023-01-27 20:54:00 Bill Coles [facility] LIPASE 2023-01-27 18:58:00 Bill Coles [facility] MAGNESIUM 2023-01-27 18:58:00 Sanket [facility] TROPONIN I 2023-01-27 18:58:00 Bill Coles [facility] COMP. METABOLIC PANEL 2023-01-27 18:58:00 Bill Coles [facility] ([id number]) Medical Branch CBC WITH DIFF 2023-01-27 18:58:00 Bill Coles [facility] URINALYSIS 2023-01-27 18:58:00 Sanket [facility] COVID-19 (ID NOW RAPID 2023-01-27 16:32:[address] [facility] TESTING) Medical Branch URINALYSIS 2022-05-10 19:36:00 Home Matthews [facility] TROPONIN I 2022-05-10 18:34:00 Home Matthews [facility] COMP. METABOLIC PANEL 2022-05-10 18:34:[address] [facility] ([id number]) [facility] CBC WITH DIFF 2022-05-10 18:34:00 Home Matthews [facility] XR CHEST 2 VW 2022-05-10 17:24:58 Byron Home B [facility] CONSENT/REFUSAL FOR 2022-05-10 16:26:23 Doctor Unassigned, [facility] DIAGNOSIS AND TREATMENT Deans [facility] CONSENT/REFUSAL FOR 2022-05-10 16:26:09 Doctor Unassigned, [facility] DIAGNOSIS AND TREATMENT De[facility] URINALYSIS 2022-05-08 22:43:00 Theresa Hickman [facility] XR CHEST 2 VW 2022-05-06 22:56:53 Anette Olea [facility] COMP. METABOLIC PANEL 2022-05-06 22:14:00 Anette Olea [facility] ([id number]) Medical Branch CBC WITH DIFF 2022-05-06 22:14:00 Anette Olea [facility] COVID-19 (ID NOW RAPID 2022-05-06 22:14:00 Anette Olea [facility] TESTING) Medical [place] BASIC METABOLIC PANEL (NA, 2022-04-22 21:23:00 Paulette Gray [facility] K, CL, CO2, GLUCOSE, BUN, Medica l Branch CREATININE, CA) CBC WITH DIFF 2022-04-22 21:23:00 Paulette Gray [facility] CONSENT/REFUSAL FOR 2022-04-22 19:45:46 Doctor Unassigned, [facility] DIAGNOSIS AND TREATMENT De[facility] SARS-COV-2 COVID-19 2022-03-05 16:09:27 [facility] DIMITRIS-SUCROSE VACCINE [address] [place] [address] YRS+, BIVALENT 0.3ML, IM, (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) FLU 2022-03-05 16:09:27 [facility] VACC(),65+YR,0.5 Medica l Branch ML,IM,ADJUVANTED,QUAD(FLUA D) FLU 2022-03-05 16:09:27 [facility] VACC(),65+YR,0.5 Medica l Branch ML,IM,ADJUVANTED,QUAD(FLUA D) SARS-COV-2 COVID-19 2022-03-05 16:09:27 [facility] DIMITRIS-SUCROSE VACCINE [address] [place] [address] YRS+, BIVALENT 0.3ML, IM, (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) MAGNESIUM 2022-02-15 09:41:00 Sofia Garcia [facility] BASIC METABOLIC PANEL (NA, 2022-02-15 09:41:00 Sofia Garcia [facility] K, CL, CO2, GLUCOSE, BUN, Medica l Branch CREATININE, CA) CBC WITH DIFF 2022-02-15 09:41:00 Sofia Garcia [facility] N-TERMINAL PRO-BNP 2022-02-15 09:41:00 Sofia Garcia [facility] CBC WITH DIFF 2022-02-15 09:41:00 Sofia Garcia [facility] BASIC METABOLIC PANEL (NA, 2022-02-15 09:41:00 Sofia Garcia [facility] K, CL, CO2, GLUCOSE, BUN, Medica l Branch CREATININE, CA) MAGNESIUM 2022-02-15 09:41:00 Sofia Garcia [facility] N-TERMINAL PRO-BNP 2022-02-15 09:41:00 Sofia Garcia [facility] BASIC METABOLIC PANEL (NA, 2022-02-13 09:40:00 Sofia Garcia [facility] K, CL, CO2, GLUCOSE, BUN, Medica l Branch CREATININE, CA) CBC WITH DIFF 2022-02-13 09:40:00 Radha [facility] BASIC METABOLIC PANEL (NA, 2022-02-13 09:40:00 Sofia Garcia [facility] K, CL, CO2, GLUCOSE, BUN, Medica l Branch CREATININE, CA) CBC WITH DIFF 2022-02-13 09:40:00 Radah [facility] TROPONIN I 2022-02-11 23:41:00 Radha [facility] N-TERMINAL PRO-BNP 2022-02-11 23:41:00 Radha [facility] TROPONIN I 2022-02-11 23:41:00 Radha [facility] N-TERMINAL PRO-BNP 2022-02-11 23:41:00 Sofia Garcia [facility] HB ECG ROUTINE & RHYTHM 2022-02-11 22:15:36 [facility] TRAN[facility] (TTE) 2022-02-11 21:26:50 [facility] (TTE) 2022-02-11 21:26:50 [facility]EL[facility] W 2022-02-11 07:45:43 Reilly Means [facility] CT ABDOMEN PELVIS W 2022-02-11 07:45:43 Reilly Means [facility] RAPID INFLUENZA A/B 2022-02-11 06:54:00 Miguelangel Reilly [facility] RAPID INFLUENZA A/B 2022-02-11 06:54:00 Reilly Means [facility] URINALYSIS 2022-02-11 06:45:00 Reilly Means [facility] URINE CULTURE 2022-02-11 06:45:00 Reilly Means [facility] URINALYSIS 2022-02-11 06:45:00 Reilly Means [facility] URINE CULTURE 2022-02-11 06:45:00 Reilly Means [facility] HB ECG ROUTINE & RHYTHM 2022-02-11 05:22:08 Reilly Means [facility] HB ECG ROUTINE & RHYTHM 2022-02-11 05:22:08 Reilly Means [facility] BLOOD CULTURE SCREEN 2022-02-11 04:58:00 Reilly Means [facility] TROPONIN I 2022-02-11 04:58:00 Reilly Means [facility] COMP. METABOLIC PANEL 2022-02-11 04:58:00 Reilly Means [facility] ([id number]) Medical Branch CBC WITH DIFF 2022-02-11 04:58:00 Reilly Means [facility] PROTHROMBIN TIME / INR 2022-02-11 04:58:00 Reilly Means [facility] ACTIVATED PARTIAL THRMPLAS 2022-02-11 04:58:00 Reilly Means [facility] N-TERMINAL PRO-BNP 2022-02-11 04:58:00 Reilly Means [facility] LACTIC ACID WHOLE BLOOD 2022-02-11 04:58:00 Reilly Means [facility] COVID-19 (ID NOW RAPID 2022-02-11 04:58:[address] [facility] TESTING) Medical Branch LAB ONLY COVID 2022-02-11 04:58:00 Reilly Means [facility] CBC WITH DIFF 2022-02-11 04:58:00 Reilly Means [facility] ACTIVATED PARTIAL THRMPLAS 2022-02-11 04:58:00 Reilly Means [facility] PROTHROMBIN TIME / INR 2022-02-11 04:58:00 Reilly Means [facility] COVID-19 (ID NOW RAPID 2022-02-11 04:58:[address] [facility] TESTING) Medical Branch COMP. METABOLIC PANEL 2022-02-11 04:58:00 Reilly Means [facility] ([id number]) Medical Branch TROPONIN I 2022-02-11 04:58:00 Reilly Means [facility] N-TERMINAL PRO-BNP 2022-02-11 04:58:00 Reilly Means [facility] BLOOD CULTURE SCREEN 2022-02-11 04:58:00 Reilly Means [facility] LACTIC ACID WHOLE BLOOD 2022-02-11 04:58:00 Reilly Means [facility] LAB ONLY COVID 2022-02-11 04:58:00 Reilly Means [facility] XR CHEST 1 VW 2022-02-11 04:27:42 Miguelangel Reilly [facility] XR CHEST 1 VW 2022-02-11 04:27:42 Reilly Means [facility] HOSPITAL ADMISSION 2022-02-10 05:01:00 Doctor Unassigned, [facility] [place] HOSPITAL ADMISSION 2022-02-10 05:01:00 Doctor Unassigned, [facility] ECG 12-LEAD 2021-07-14 15:14:00 Elan Lira [facility] [id number] 2021-06-17 00:00:00 RIKY CLARK [facility] GASTROINTESTINAL PANEL 2020-12-08 22:21:[address] [facility] XR ABDOMEN 1 VW 2020-12-08 18:06:32 Eliseo Arce spital OR [place] < 1 HOUR 2020-09-05 22:39:00 Eliseo Arce spijose SURGICAL PATHOLOGY REQUEST 2020-09-05 21:54:00 Eliseo Arce [facility] XR CHEST 1 VW PORTABLE 2020-09-05 19:55:00 Eliseo Arce Metho [facility] Hospital DISCHARGE PATIENT 2020-09-05 17:27:55 Lucas Harris [facility] RI AN ELECTIVE 2020-09-05 16:47:23 [facility], INTRAOPERATIVE 2020-09-05 16:27:00 Eliseo Arce [facility] PARTIAL THROMBOPLASTIN 2020-09-05 15:04:00 [facility] TIME (PTT[facility] M. PROTHROMBIN TIME WITH INR 2020-09-05 15:04:00 Mindy Maharaj [facility] M. Plan of Care Planned Activity Planned Date Details Comments Source Future Scheduled 2023-02-15 Screening for [facility] Test 13:19:29 malignant neoplasm of colon (procedure) [code = 526873254] Future Scheduled 2023-02-15 Screening for [facility] Test 13:19:29 malignant neoplasm of colon (procedure) [code = 154215299] Future Scheduled 2023-02-15 Screening for [facility] Test 13:19:29 malignant neoplasm of colon (procedure) [code = 446741714] Future Scheduled 2023-02-15 SHINGLES VACCINES (1 Met [facility] Test 13:19:29 of 2) [code = SHINGLES VACCINES (1 of 2)] Future Scheduled 2023-02-15 BREAST CANCER [facility] Test 13:19:29 SCREENING [code = BREAST CANCER SCREENING] Future Scheduled 2023-02-15 Screening for [facility] Test 13:19:29 malignant neoplasm of colon (procedure) [code = 926275123] Future Scheduled 2023-02-15 Screening for [facility] Test 13:19:29 malignant neoplasm of colon (procedure) [code = 313254657] Future Scheduled 2023-02-15 HEPATITIS B VACCINES Met [facility] Test 13:19:29 (1 of 3 - Risk 3-dose series) [code = HEPATITIS B VACCINES (1 of 3 - Risk 3-dose series)] Future Scheduled 2023-02-15 COVID-19 VACCINE (3 - Me [facility] Test 13:19:29 Pfizer series) [code = COVID-19 VACCINE (3 - Pfizer series)] Future Scheduled 2023-02-15 65+ PNEUMOCOCCAL [facility] Test 13:19:29 VACCINE (4 - PPSV23 or PCV20) [code = 65+ PNEUMOCOCCAL VACCINE (4 - PPSV23 or PCV20)] Future Scheduled 2023-02-15 INFLUENZA VACCINE (#1) [facility] Test 13:19:29 [code = INFLUENZA VACCINE (#1)] Future Scheduled 2023-02-15 Screening for [facility] Test 13:19:29 malignant neoplasm of colon (procedure) [code = 390895590] Future Scheduled 2023-02-15 Screening for [facility] Test 13:19:29 malignant neoplasm of colon (procedure) [code = 366322522] Future Scheduled 2023-02-15 [facility] Test 13:19:29 malignant neoplasm of colon (procedure) [code = 584645343] Future Scheduled 2023-02-15 SHINGLES VACCINES (1 Met [facility] Test 13:19:29 of 2) [code = SHINGLES VACCINES (1 of 2)] Future Scheduled 2023-02-15 BREAST CANCER [facility] Test 13:19:29 SCREENING [code = BREAST CANCER SCREENING] Future Scheduled 2023-02-15 Screening for [facility] Test 13:19:29 malignant neoplasm of colon (procedure) [code = 839449732] Future Scheduled 2023-02-15 Screening for [facility] Test 13:19:29 malignant neoplasm of colon (procedure) [code = 251065346] Future Scheduled 2023-02-15 HEPATITIS B VACCINES Met [facility] Test 13:19:29 (1 of 3 - Risk 3-dose series) [code = HEPATITIS B VACCINES (1 of 3 - Risk 3-dose series)] Future Scheduled 2023-02-15 COVID-19 VACCINE (3 - Me [facility] Test 13:19:29 Pfizer series) [code = COVID-19 VACCINE (3 - Pfizer series)] Future Scheduled 2023-02-15 65+ PNEUMOCOCCAL [facility] Test 13:19:29 VACCINE (4 - PPSV23 or PCV20) [code = 65+ PNEUMOCOCCAL VACCINE (4 - PPSV23 or PCV20)] Future Scheduled 2023-02-15 INFLUENZA VACCINE (#1) [facility] Test 13:19:29 [code = INFLUENZA VACCINE (#1)] Future Scheduled 2023-02-15 Screening for [facility] Test 13:19:29 malignant neoplasm of colon (procedure) [code = 965037025] Future Scheduled 2023-02-15 Screening for [facility] Test 13:19:29 malignant neoplasm of colon (procedure) [code = 825175684] Future Scheduled 2023-02-15 Screening for [facility] Test 13:19:29 malignant neoplasm of colon (procedure) [code = 275342264] Future Scheduled 2023-02-15 SHINGLES VACCINES (1 Met [facility] Test 13:19:29 of 2) [code = SHINGLES VACCINES (1 of 2)] Future Scheduled 2023-02-15 BREAST CANCER [facility] Test 13:19:29 SCREENING [code = BREAST CANCER SCREENING] Future Scheduled 2023-02-15 Screening for [facility] Test 13:19:29 malignant neoplasm of colon (procedure) [code = 690100668] Future Scheduled 2023-02-15 Screening for [facility] Test 13:19:29 malignant neoplasm of colon (procedure) [code = 626431703] Future Scheduled 2023-02-15 HEPATITIS B VACCINES Met [facility] Test 13:19:29 (1 of 3 - Risk 3-dose series) [code = HEPATITIS B VACCINES (1 of 3 - Risk 3-dose series)] Future Scheduled 2023-02-15 COVID-19 VACCINE (3 - [facility] Test 13:19:29 Pfizer series) [code = COVID-19 VACCINE (3 - Pfizer series)] Future Scheduled 2023-02-15 65+ PNEUMOCOCCAL [facility] Test 13:19:29 VACCINE (4 - PPSV23 or PCV20) [code = 65+ PNEUMOCOCCAL VACCINE (4 - PPSV23 or PCV20)] Future Scheduled 2023-02-15 INFLUENZA VACCINE (#1) [facility] Test 13:19:29 [code = INFLUENZA VACCINE (#1)] Future Scheduled 2023-02-15 Screening for [facility] Test 13:19:29 malignant neoplasm of colon (procedure) [code = 158234497] Future Scheduled 2023-02-15 Screening for [facility] Test 13:19:29 malignant neoplasm of colon (procedure) [code = 762176238] Future Scheduled 2023-02-15 Screening for [facility] Test 13:19:29 malignant neoplasm of colon (procedure) [code = 563402737] Future Scheduled 2023-02-15 SHINGLES VACCINES (1 Met [facility] Test 13:19:29 of 2) [code = SHINGLES VACCINES (1 of 2)] Future Scheduled 2023-02-15 BREAST CANCER [facility] Test 13:19:29 SCREENING [code = BREAST CANCER SCREENING] Future Scheduled 2023-02-15 Screening for [facility] Test 13:19:29 malignant neoplasm of colon (procedure) [code = [id number]] Future Scheduled 2023-02-15 Screening for [facility] Test 13:19:29 malignant neoplasm of colon (procedure) [code = [id number]] Future Scheduled 2023-02-15 HEPATITIS B VACCINES Met [facility] Test 13:19:29 (1 of 3 - Risk 3-dose series) [code = HEPATITIS B VACCINES (1 of 3 - Risk 3-dose series)] Future Scheduled 2023-02-15 COVID-19 VACCINE (3 - Me [facility] Test 13:19:29 Pfizer series) [code = COVID-19 VACCINE (3 - Pfizer series)] Future Scheduled 2023-02-15 65+ PNEUMOCOCCAL [facility] Test 13:19:29 VACCINE (4 - PPSV23 or PCV20) [code = 65+ PNEUMOCOCCAL VACCINE (4 - PPSV23 or PCV20)] Future Scheduled 2023-02-15 INFLUENZA VACCINE (#1) [facility] Test 13:19:29 [code = INFLUENZA VACCINE (#1)] Future Scheduled 2023-02-15 Screening for [facility] Test 13:19:29 malignant neoplasm of colon (procedure) [code = [id number]] Future Scheduled 2023-02-15 Screening for [facility] Test 13:19:29 malignant neoplasm of colon (procedure) [code = 358595913] Future Scheduled 2023-02-15 Screening for [facility] Test 13:19:29 malignant neoplasm of colon (procedure) [code = 948287642] Future Scheduled 2023-02-15 SHINGLES VACCINES (1 Met [facility] Test 13:19:29 of 2) [code = SHINGLES VACCINES (1 of 2)] Future Scheduled 2023-02-15 BREAST CANCER [facility] Test 13:19:29 SCREENING [code = BREAST CANCER SCREENING] Future Scheduled 2023-02-15 Screening for [facility] Test 13:19:29 malignant neoplasm of colon (procedure) [code = 751930972] Future Scheduled 2023-02-15 Screening for [facility] Test 13:19:29 malignant neoplasm of colon (procedure) [code = 059750014] Future Scheduled 2023-02-15 HEPATITIS B VACCINES Met [facility] Test 13:19:29 (1 of 3 - Risk 3-dose series) [code = HEPATITIS B VACCINES (1 of 3 - Risk 3-dose series)] Future Scheduled 2023-02-15 COVID-19 VACCINE (3 - Me [facility] Test 13:19:29 Pfizer series) [code = COVID-19 VACCINE (3 - Pfizer series)] Future Scheduled 2023-02-15 65+ PNEUMOCOCCAL [facility] Test 13:19:29 VACCINE (4 - PPSV23 or PCV20) [code = 65+ PNEUMOCOCCAL VACCINE (4 - PPSV23 or PCV20)] Future Scheduled 2023-02-15 INFLUENZA VACCINE (#1) [facility] Test 13:19:29 [code = INFLUENZA VACCINE (#1)] Future Scheduled 2023-02-10 Screening for [facility] Test 19:08:20 malignant neoplasm of colon (procedure) [code = 803299107] Future Scheduled 2023-02-10 Screening for [facility] Test 19:08:20 malignant neoplasm of colon (procedure) [code = 583783733] Future Scheduled 2023-02-10 Screening for [facility] Test 19:08:20 malignant neoplasm of colon (procedure) [code = 721937460] Future Scheduled 2023-02-10 SHINGLES VACCINES (1 Met [facility] Test 19:08:20 of 2) [code = SHINGLES VACCINES (1 of 2)] Future Scheduled 2023-02-10 BREAST CANCER [facility] Test 19:08:20 SCREENING [code = BREAST CANCER SCREENING] Future Scheduled 2023-02-10 Screening for [facility] Test 19:08:20 malignant neoplasm of colon (procedure) [code = 507505221] Future Scheduled 2023-02-10 Screening for [facility] Test 19:08:20 malignant neoplasm of colon (procedure) [code = 962690428] Future Scheduled 2023-02-10 HEPATITIS B VACCINES Met [facility] Test 19:08:20 (1 of 3 - Risk 3-dose series) [code = HEPATITIS B VACCINES (1 of 3 - Risk 3-dose series)] Future Scheduled 2023-02-10 COVID-19 VACCINE (3 - Me [facility] Test 19:08:20 Pfizer series) [code = COVID-19 VACCINE (3 - Pfizer series)] Future Scheduled 2023-02-10 65+ PNEUMOCOCCAL [facility] Test 19:08:20 VACCINE (4 - PPSV23 or PCV20) [code = 65+ PNEUMOCOCCAL VACCINE (4 - PPSV23 or PCV20)] Future Scheduled 2023-02-10 INFLUENZA VACCINE (#1) [facility] Test 19:08:20 [code = INFLUENZA VACCINE (#1)] Future Scheduled 2023-02-10 Screening for [facility] Test 19:08:20 malignant neoplasm of colon (procedure) [code = 064214252] Future Scheduled 2023-02-10 Screening for [facility] Test 19:08:20 malignant neoplasm of colon (procedure) [code = 658070738] Future Scheduled 2023-02-10 Screening for [facility] Test 19:08:20 malignant neoplasm of colon (procedure) [code = 355802025] Future Scheduled 2023-02-10 SHINGLES VACCINES (1 Met [facility] Test 19:08:20 of 2) [code = SHINGLES VACCINES (1 of 2)] Future Scheduled 2023-02-10 BREAST CANCER [facility] Test 19:08:20 SCREENING [code = BREAST CANCER SCREENING] Future Scheduled 2023-02-10 Screening for [facility] Test 19:08:20 malignant neoplasm of colon (procedure) [code = 302273131] Future Scheduled 2023-02-10 Screening for [facility] Test 19:08:20 malignant neoplasm of colon (procedure) [code = 781559515] Future Scheduled 2023-02-10 HEPATITIS B VACCINES Met [facility] Test 19:08:20 (1 of 3 - Risk 3-dose series) [code = HEPATITIS B VACCINES (1 of 3 - Risk 3-dose series)] Future Scheduled 2023-02-10 COVID-19 VACCINE (3 - [facility] Test 19:08:20 Pfizer series) [code = COVID-19 VACCINE (3 - Pfizer series)] Future Scheduled 2023-02-10 65+ PNEUMOCOCCAL [facility] Test 19:08:20 VACCINE (4 - PPSV23 or PCV20) [code = 65+ PNEUMOCOCCAL VACCINE (4 - PPSV23 or PCV20)] Future Scheduled 2023-02-10 INFLUENZA VACCINE (#1) [facility] Test 19:08:20 [code = INFLUENZA VACCINE (#1)] Future Scheduled 2023-02-07 Screening for [facility] Test 14:07:46 malignant neoplasm of colon (procedure) [code = 717843390] Future Scheduled 2023-02-07 Screening for [facility] Test 14:07:46 malignant neoplasm of colon (procedure) [code = 341954116] Future Scheduled 2023-02-07 Screening for [facility] Test 14:07:46 malignant neoplasm of colon (procedure) [code = 278862049] Future Scheduled 2023-02-07 SHINGLES VACCINES (1 Met [facility] Test 14:07:46 of 2) [code = SHINGLES VACCINES (1 of 2)] Future Scheduled 2023-02-07 BREAST CANCER [facility] Test 14:07:46 SCREENING [code = BREAST CANCER SCREENING] Future Scheduled 2023-02-07 Screening for [facility] Test 14:07:46 malignant neoplasm of colon (procedure) [code = 887171802] Future Scheduled 2023-02-07 Screening for [facility] Test 14:07:46 malignant neoplasm of colon (procedure) [code = 642512099] Future Scheduled 2023-02-07 HEPATITIS B VACCINES Met [facility] Test 14:07:46 (1 of 3 - Risk 3-dose series) [code = HEPATITIS B VACCINES (1 of 3 - Risk 3-dose series)] Future Scheduled 2023-02-07 COVID-19 VACCINE (3 - Me [facility] Test 14:07:46 Pfizer series) [code = COVID-19 VACCINE (3 - Pfizer series)] Future Scheduled 2023-02-07 65+ PNEUMOCOCCAL [facility] Test 14:07:46 VACCINE (4 - PPSV23 or PCV20) [code = 65+ PNEUMOCOCCAL VACCINE (4 - PPSV23 or PCV20)] Future Scheduled 2023-02-07 INFLUENZA VACCINE (#1) [facility] Test 14:07:46 [code = INFLUENZA VACCINE (#1)] Future Scheduled 2023 Screening for [facility] Test 08:21:28 malignant neoplasm of colon (procedure) [code = 948204018] Future Scheduled 2023 Screening for [facility] Test 08:21:28 malignant neoplasm of colon (procedure) [code = 485569113] Future Scheduled 2023 Screening for [facility] Test 08:21:28 malignant neoplasm of colon (procedure) [code = 863181844] Future Scheduled 2023 SHINGLES VACCINES (1 Met [facility] Test 08:21:28 of 2) [code = SHINGLES VACCINES (1 of 2)] Future Scheduled 2023 BREAST CANCER [facility] Test 08:21:28 SCREENING [code = BREAST CANCER SCREENING] Future Scheduled 2023 Screening for [facility] Test 08:21:28 malignant neoplasm of colon (procedure) [code = 414819465] Future Scheduled 2023 Screening for [facility] Test 08:21:28 malignant neoplasm of colon (procedure) [code = 221940327] Future Scheduled 2023 HEPATITIS B VACCINES Met [facility] Test 08:21:28 (1 of 3 - Risk 3-dose series) [code = HEPATITIS B VACCINES (1 of 3 - Risk 3-dose series)] Future Scheduled 2023 COVID-19 VACCINE (3 - Me [facility] Test 08:21:28 Pfizer series) [code = COVID-19 VACCINE (3 - Pfizer series)] Future Scheduled 2023 65+ PNEUMOCOCCAL [facility] Test 08:21:28 VACCINE (4 - PPSV23 if available, else PCV20) [code = 65+ PNEUMOCOCCAL VACCINE (4 - PPSV23 if available, else PCV20)] Future Scheduled 2023 INFLUENZA VACCINE (#1) [facility] Test 08:21:28 [code = INFLUENZA VACCINE (#1)] Future Scheduled 2023 Screening for [facility] Test 08:21:28 malignant neoplasm of colon (procedure) [code = 017858170] Future Scheduled 2023 Screening for [facility] Test 08:21:28 malignant neoplasm of colon (procedure) [code = 108964958] Future Scheduled 2023 Screening for [facility] Test 08:21:28 malignant neoplasm of colon (procedure) [code = 926373901] Future Scheduled 2023 SHINGLES VACCINES (1 Met [facility] Test 08:21:28 of 2) [code = SHINGLES VACCINES (1 of 2)] Future Scheduled 2023 BREAST CANCER [facility] Test 08:21:28 SCREENING [code = BREAST CANCER SCREENING] Future Scheduled 2023 Screening for [facility] Test 08:21:28 malignant neoplasm of colon (procedure) [code = 752666416] Future Scheduled 2023 Screening for [facility] Test 08:21:28 malignant neoplasm of colon (procedure) [code = 735435986] Future Scheduled 2023 HEPATITIS B VACCINES Met [facility] Test 08:21:28 (1 of 3 - Risk 3-dose series) [code = HEPATITIS B VACCINES (1 of 3 - Risk 3-dose series)] Future Scheduled 2023 COVID-19 VACCINE (3 - Me [facility] Test 08:21:28 Pfizer series) [code = COVID-19 VACCINE (3 - Pfizer series)] Future Scheduled 2023 65+ PNEUMOCOCCAL [facility] Test 08:21:28 VACCINE (4 - PPSV23 if available, else PCV20) [code = 65+ PNEUMOCOCCAL VACCINE (4 - PPSV23 if available, else PCV20)] Future Scheduled 2023 INFLUENZA VACCINE (#1) [facility] Test 08:21:28 [code = INFLUENZA VACCINE (#1)] Future Scheduled 2023-01-17 Screening for [facility] Test 02:09:59 malignant neoplasm of colon (procedure) [code = 906141835] Future Scheduled 2023-01-17 Screening for [facility] Test 02:09:59 malignant neoplasm of colon (procedure) [code = 699400232] Future Scheduled 2023-01-17 Screening for [facility] Test 02:09:59 malignant neoplasm of colon (procedure) [code = 534206210] Future Scheduled 2023-01-17 SHINGLES VACCINES (1 Met [facility] Test 02:09:59 of 2) [code = SHINGLES VACCINES (1 of 2)] Future Scheduled 2023-01-17 BREAST CANCER [facility] Test 02:09:59 SCREENING [code = BREAST CANCER SCREENING] Future Scheduled 2023-01-17 Screening for [facility] Test 02:09:59 malignant neoplasm of colon (procedure) [code = 530732109] Future Scheduled 2023-01-17 Screening for [facility] Test 02:09:59 malignant neoplasm of colon (procedure) [code = 025657659] Future Scheduled 2023-01-17 HEPATITIS B VACCINES Met [facility] Test 02:09:59 (1 of 3 - Risk 3-dose series) [code = HEPATITIS B VACCINES (1 of 3 - Risk 3-dose series)] Future Scheduled 2023-01-17 COVID-19 VACCINE (3 - Me [facility] Test 02:09:59 Pfizer series) [code = COVID-19 VACCINE (3 - Pfizer series)] Future Scheduled 2023-01-17 65+ PNEUMOCOCCAL [facility] Test 02:09:59 VACCINE (4 - PPSV23 if available, else PCV20) [code = 65+ PNEUMOCOCCAL VACCINE (4 - PPSV23 if available, else PCV20)] Future Scheduled 2023-01-17 INFLUENZA VACCINE (#1) [facility] Test 02:09:59 [code = INFLUENZA VACCINE (#1)] Future Scheduled 2022-12-23 Screening for [facility] Test 06:27:39 malignant neoplasm of colon (procedure) [code = 825221463] Future Scheduled 2022-12-23 Screening for [facility] Test 06:27:39 malignant neoplasm of colon (procedure) [code = 978069667] Future Scheduled 2022-12-23 Screening for [facility] Test 06:27:39 malignant neoplasm of colon (procedure) [code = 909159699] Future Scheduled 2022-12-23 SHINGLES VACCINES (1 Met [facility] Test 06:27:39 of 2) [code = SHINGLES VACCINES (1 of 2)] Future Scheduled 2022-12-23 BREAST CANCER [facility] Test 06:27:39 SCREENING [code = BREAST CANCER SCREENING] Future Scheduled 2022-12-23 Screening for [facility] Test 06:27:39 malignant neoplasm of colon (procedure) [code = 488141800] Future Scheduled 2022-12-23 Screening for [facility] Test 06:27:39 malignant neoplasm of colon (procedure) [code = 392146370] Future Scheduled 2022-12-23 HEPATITIS B VACCINES Met [facility] Test 06:27:39 (1 of 3 - Risk 3-dose series) [code = HEPATITIS B VACCINES (1 of 3 - Risk 3-dose series)] Future Scheduled 2022-12-23 COVID-19 VACCINE (3 - Me [facility] Test 06:27:39 Pfizer series) [code = COVID-19 VACCINE (3 - Pfizer series)] Future Scheduled 2022-12-23 65+ PNEUMOCOCCAL [facility] Test 06:27:39 VACCINE (4 - PPSV23 if available, else PCV20) [code = 65+ PNEUMOCOCCAL VACCINE (4 - PPSV23 if available, else PCV20)] Future Scheduled 2022-12-23 [facility]ZA [facility]ACCINE [facility] Test 06:27:39 [code = INFLUENZA VACCINE] Future Scheduled 2022-12-23 Screening for [facility] Test 06:27:39 malignant neoplasm of colon (procedure) [code = 232744340] Future Scheduled 2022-12-23 Screening for [facility] Test 06:27:39 malignant neoplasm of colon (procedure) [code = 202617554] Future Scheduled 2022-12-23 Screening for [facility] Test 06:27:39 malignant neoplasm of colon (procedure) [code = 382428088] Future Scheduled 2022-12-23 SHINGLES VACCINES (1 Met [facility] Test 06:27:39 of 2) [code = SHINGLES VACCINES (1 of 2)] Future Scheduled 2022-12-23 BREAST CANCER [facility] Test 06:27:39 SCREENING [code = BREAST CANCER SCREENING] Future Scheduled 2022-12-23 Screening for [facility] Test 06:27:39 malignant neoplasm of colon (procedure) [code = 899511460] Future Scheduled 2022-12-23 Screening for [facility] Test 06:27:39 malignant neoplasm of colon (procedure) [code = 847861337] Future Scheduled 2022-12-23 HEPATITIS B VACCINES Met [facility] Test 06:27:39 (1 of 3 - Risk 3-dose series) [code = HEPATITIS B VACCINES (1 of 3 - Risk 3-dose series)] Future Scheduled 2022-12-23 COVID-19 VACCINE (3 - Me [facility] Test 06:27:39 Pfizer series) [code = COVID-19 VACCINE (3 - Pfizer series)] Future Scheduled 2022-12-23 65+ [facility] 06:27:39 VACCINE (4 - PPSV23 if available, else PCV20) [code = 65+ PNEUMOCOCCAL VACCINE (4 - PPSV23 if available, else PCV20)] Future Scheduled 2022-12-23 [facility]ZA [facility]ACCINE [facility] Test 06:27:39 [code = INFLUENZA VACCINE] Future Scheduled 2022-12-23 Screening for [facility] Test 06:27:39 malignant neoplasm of colon (procedure) [code = 057678158] Future Scheduled 2022-12-23 Screening for [facility] Test 06:27:39 malignant neoplasm of colon (procedure) [code = 525832547] Future Scheduled 2022-12-23 Screening for [facility] Test 06:27:39 malignant neoplasm of colon (procedure) [code = 563704318] Future Scheduled 2022-12-23 SHINGLES VACCINES (1 Met [facility] Test 06:27:39 of 2) [code = SHINGLES VACCINES (1 of 2)] Future Scheduled 2022-12-23 BREAST CANCER [facility] Test 06:27:39 SCREENING [code = BREAST CANCER SCREENING] Future Scheduled 2022-12-23 Screening for [facility] Test 06:27:39 malignant neoplasm of colon (procedure) [code = 763618753] Future Scheduled 2022-12-23 Screening for [facility] Test 06:27:39 malignant neoplasm of colon (procedure) [code = 790785568] Future Scheduled 2022-12-23 HEPATITIS B VACCINES Met [facility] Test 06:27:39 (1 of 3 - Risk 3-dose series) [code = HEPATITIS B VACCINES (1 of 3 - Risk 3-dose series)] Future Scheduled 2022-12-23 COVID-19 VACCINE (3 - Me [facility] Test 06:27:39 Pfizer series) [code = COVID-19 VACCINE (3 - Pfizer series)] Future Scheduled 2022-12-23 65+ [facility] 06:27:39 VACCINE (4 - PPSV23 if available, else PCV20) [code = 65+ PNEUMOCOCCAL VACCINE (4 - PPSV23 if available, else PCV20)] Future Scheduled 2022-12-23 INFLUENZA VACCINE [facility] Test 06:27:39 [code = INFLUENZA VACCINE] Future Scheduled 2022-12-23 Screening for [facility] Test 06:27:39 malignant neoplasm of colon (procedure) [code = 705713922] Future Scheduled 2022-12-23 Screening for [facility] Test 06:27:39 malignant neoplasm of colon (procedure) [code = 841344573] Future Scheduled 2022-12-23 Screening for [facility] Test 06:27:39 malignant neoplasm of colon (procedure) [code = 058534387] Future Scheduled 2022-12-23 SHINGLES VACCINES (1 Met [facility] Test 06:27:39 of 2) [code = SHINGLES VACCINES (1 of 2)] Future Scheduled 2022-12-23 BREAST CANCER [facility] Test 06:27:39 SCREENING [code = BREAST CANCER SCREENING] Future Scheduled 2022-12-23 Screening for [facility] Test 06:27:39 malignant neoplasm of colon (procedure) [code = 848355647] Future Scheduled 2022-12-23 Screening for [facility] Test 06:27:39 malignant neoplasm of colon (procedure) [code = 178072000] Future Scheduled 2022-12-23 HEPATITIS B VACCINES Met [facility] Test 06:27:39 (1 of 3 - Risk 3-dose series) [code = HEPATITIS B VACCINES (1 of 3 - Risk 3-dose series)] Future Scheduled 2022-12-23 COVID-19 VACCINE (3 - [facility] Test 06:27:39 Pfizer series) [code = COVID-19 VACCINE (3 - Pfizer series)] Future Scheduled 2022-12-23 65+ PNEUMOCOCCAL [facility] Test 06:27:39 VACCINE (4 - PPSV23 if available, else PCV20) [code = 65+ PNEUMOCOCCAL VACCINE (4 - PPSV23 if available, else PCV20)] Future Scheduled 2022-12-23 INFLUENZA VACCINE [facility] Test 06:27:39 [code = INFLUENZA VACCINE] Future Scheduled 2022-12-23 Screening for [facility] Test 06:27:39 malignant neoplasm of colon (procedure) [code = 539162049] Future Scheduled 2022-12-23 Screening for [facility] Test 06:27:39 malignant neoplasm of colon (procedure) [code = 925725816] Future Scheduled 2022-12-23 Screening for [facility] Test 06:27:39 malignant neoplasm of colon (procedure) [code = 501091497] Future Scheduled 2022-12-23 SHINGLES VACCINES (1 Met [facility] Test 06:27:39 of 2) [code = SHINGLES VACCINES (1 of 2)] Future Scheduled 2022-12-23 BREAST CANCER [facility] Test 06:27:39 SCREENING [code = BREAST CANCER SCREENING] Future Scheduled 2022-12-23 Screening for [facility] Test 06:27:39 malignant neoplasm of colon (procedure) [code = 135767544] Future Scheduled 2022-12-23 Screening for [facility] Test 06:27:39 malignant neoplasm of colon (procedure) [code = 320596291] Future Scheduled 2022-12-23 HEPATITIS B VACCINES Met [facility] Test 06:27:39 (1 of 3 - Risk 3-dose series) [code = HEPATITIS B VACCINES (1 of 3 - Risk 3-dose series)] Future Scheduled 2022-12-23 COVID-19 VACCINE (3 - [facility] Test 06:27:39 Pfizer series) [code = COVID-19 VACCINE (3 - Pfizer series)] Future Scheduled 2022-12-23 65+ PNEUMOCOCCAL [facility] Test 06:27:39 VACCINE (4 - PPSV23 if available, else PCV20) [code = 65+ PNEUMOCOCCAL VACCINE (4 - PPSV23 if available, else PCV20)] Future Scheduled 2022-12-23 ZZZ INFLUENZA VACCINE [facility] Test 06:27:39 [code = ZZZ INFLUENZA VACCINE] Future Scheduled 2022-12-23 Screening for [facility] Test 06:27:39 malignant neoplasm of colon (procedure) [code = 207808404] Future Scheduled 2022-12-23 Screening for [facility] Test 06:27:39 malignant neoplasm of colon (procedure) [code = 586888339] Future Scheduled 2022-12-23 Screening for [facility] Test 06:27:39 malignant neoplasm of colon (procedure) [code = 048602329] Future Scheduled 2022-12-23 SHINGLES VACCINES (1 Met [facility] Test 06:27:39 of 2) [code = SHINGLES VACCINES (1 of 2)] Future Scheduled 2022-12-23 BREAST CANCER [facility] Test 06:27:39 SCREENING [code = BREAST CANCER SCREENING] Future Scheduled 2022-12-23 Screening for [facility] Test 06:27:39 malignant neoplasm of colon (procedure) [code = 887271678] Future Scheduled 2022-12-23 Screening for [facility] Test 06:27:39 malignant neoplasm of colon (procedure) [code = 869851081] Future Scheduled 2022-12-23 HEPATITIS B VACCINES Met [facility] Test 06:27:39 (1 of 3 - Risk 3-dose series) [code = HEPATITIS B VACCINES (1 of 3 - Risk 3-dose series)] Future Scheduled 2022-12-23 COVID-19 VACCINE (3 - [facility] Test 06:27:39 Pfizer series) [code = COVID-19 VACCINE (3 - Pfizer series)] Future Scheduled 2022-12-23 65+ PNEUMOCOCCAL [facility] Test 06:27:39 VACCINE (4 - PPSV23 if available, else PCV20) [code = 65+ PNEUMOCOCCAL VACCINE (4 - PPSV23 if available, else PCV20)] Future Scheduled 2022-12-23 ZZZ INFLUENZA VACCINE [facility] Test 06:27:39 [code = ZZZ INFLUENZA VACCINE] Future Scheduled 2022-12-13 Screening for [facility] Test 16:46:16 malignant neoplasm of colon (procedure) [code = 585713617] Future Scheduled 2022-12-13 Screening for [facility] Test 16:46:16 malignant neoplasm of colon (procedure) [code = 588568798] Future Scheduled 2022-12-13 Screening for [facility] Test 16:46:16 malignant neoplasm of colon (procedure) [code = [id number]] Future Scheduled 2022-12-13 SHINGLES VACCINES (1 Met [facility] Test 16:46:16 of 2) [code = SHINGLES VACCINES (1 of 2)] Future Scheduled 2022-12-13 BREAST CANCER [facility] Test 16:46:16 SCREENING [code = BREAST CANCER SCREENING] Future Scheduled 2022-12-13 Screening for [facility] Test 16:46:16 malignant neoplasm of colon (procedure) [code = [id number]] Future Scheduled 2022-12-13 Screening for [facility] Test 16:46:16 malignant neoplasm of colon (procedure) [code = [id number]] Future Scheduled 2022-12-13 HEPATITIS B VACCINES Met [facility] Test 16:46:16 (1 of 3 - Risk 3-dose series) [code = HEPATITIS B VACCINES (1 of 3 - Risk 3-dose series)] Future Scheduled 2022-12-13 COVID-19 VACCINE (3 - Me [facility] Test 16:46:16 Pfizer series) [code = COVID-19 VACCINE (3 - Pfizer series)] Future Scheduled 2022-12-13 65+ PNEUMOCOCCAL [facility] Test 16:46:16 VACCINE (4 - PPSV23 if available, else PCV20) [code = 65+ PNEUMOCOCCAL VACCINE (4 - PPSV23 if available, else PCV20)] Future Scheduled 2022-12-13 INFLUENZA VACCINE [facility] Test 16:46:16 [code = INFLUENZA VACCINE] Future Scheduled 2022-12-13 Screening for [facility] Test 16:46:16 malignant neoplasm of colon (procedure) [code = [id number]] Future Scheduled 2022-12-13 Screening for [facility] Test 16:46:16 malignant neoplasm of colon (procedure) [code = 137074098] Future Scheduled 2022-12-13 Screening for [facility] Test 16:46:16 malignant neoplasm of colon (procedure) [code = 612864490] Future Scheduled 2022-12-13 SHINGLES VACCINES (1 Met [facility] Test 16:46:16 of 2) [code = SHINGLES VACCINES (1 of 2)] Future Scheduled 2022-12-13 BREAST CANCER [facility] Test 16:46:16 SCREENING [code = BREAST CANCER SCREENING] Future Scheduled 2022-12-13 Screening for [facility] Test 16:46:16 malignant neoplasm of colon (procedure) [code = 010146149] Future Scheduled 2022-12-13 Screening for [facility] Test 16:46:16 malignant neoplasm of colon (procedure) [code = 046822579] Future Scheduled 2022-12-13 HEPATITIS B VACCINES Met [facility] Test 16:46:16 (1 of 3 - Risk 3-dose series) [code = HEPATITIS B VACCINES (1 of 3 - Risk 3-dose series)] Future Scheduled 2022-12-13 COVID-19 VACCINE (3 - [facility] Test 16:46:16 Pfizer series) [code = COVID-19 VACCINE (3 - Pfizer series)] Future Scheduled 2022-12-13 65+ PNEUMOCOCCAL [facility] Test 16:46:16 VACCINE (4 - PPSV23 if available, else PCV20) [code = 65+ PNEUMOCOCCAL VACCINE (4 - PPSV23 if available, else PCV20)] Future Scheduled 2022-12-13 [facility] 16:46:16 [code = INFLUENZA VACCINE] Future Scheduled 2022-12-13 Screening for [facility] Test 16:46:16 malignant neoplasm of colon (procedure) [code = [id number]] Future Scheduled 2022-12-13 Screening for [facility] Test 16:46:16 malignant neoplasm of colon (procedure) [code = 352718180] Future Scheduled 2022-12-13 Screening for [facility] Test 16:46:16 malignant neoplasm of colon (procedure) [code = 605199830] Future Scheduled 2022-12-13 SHINGLES VACCINES (1 Met [facility] Test 16:46:16 of 2) [code = SHINGLES VACCINES (1 of 2)] Future Scheduled 2022-12-13 BREAST CANCER [facility] Test 16:46:16 SCREENING [code = BREAST CANCER SCREENING] Future Scheduled 2022-12-13 Screening for [facility] Test 16:46:16 malignant neoplasm of colon (procedure) [code = 771872172] Future Scheduled 2022-12-13 Screening for [facility] Test 16:46:16 malignant neoplasm of colon (procedure) [code = 330355974] Future Scheduled 2022-12-13 HEPATITIS B VACCINES Met [facility] Test 16:46:16 (1 of 3 - Risk 3-dose series) [code = HEPATITIS B VACCINES (1 of 3 - Risk 3-dose series)] Future Scheduled 2022-12-13 COVID-19 VACCINE (3 - Me [facility] Test 16:46:16 Pfizer series) [code = COVID-19 VACCINE (3 - Pfizer series)] Future Scheduled 2022-12-13 65+ [facility] Test 16:46:16 VACCINE (4 - PPSV23 if available, else PCV20) [code = 65+ PNEUMOCOCCAL VACCINE (4 - PPSV23 if available, else PCV20)] Future Scheduled 2022-12-13 INFLUENZA VACCINE [facility] Test 16:46:16 [code = INFLUENZA VACCINE] Future Scheduled 2022-11-11 Screening for [facility] Test 09:27:47 malignant neoplasm of colon (procedure) [code = 127516008] Future Scheduled 2022-11-11 Screening for [facility] Test 09:27:47 malignant neoplasm of colon (procedure) [code = 605230696] Future Scheduled 2022-11-11 Screening for [facility] Test 09:27:47 malignant neoplasm of colon (procedure) [code = 222358872] Future Scheduled 2022-11-11 SHINGLES VACCINES (1 Met [facility] Test 09:27:47 of 2) [code = SHINGLES VACCINES (1 of 2)] Future Scheduled 2022-11-11 BREAST CANCER [facility] Test 09:27:47 SCREENING [code = BREAST CANCER SCREENING] Future Scheduled 2022-11-11 Screening for [facility] Test 09:27:47 malignant neoplasm of colon (procedure) [code = 612516931] Future Scheduled 2022-11-11 Screening for [facility] Test 09:27:47 malignant neoplasm of colon (procedure) [code = 428267011] Future Scheduled 2022-11-11 HEPATITIS B VACCINES Met [facility] Test 09:27:47 (1 of 3 - Risk 3-dose series) [code = HEPATITIS B VACCINES (1 of 3 - Risk 3-dose series)] Future Scheduled 2022-11-11 COVID-19 VACCINE (3 - [facility] Test 09:27:47 Pfizer series) [code = COVID-19 VACCINE (3 - Pfizer series)] Future Scheduled 2022-11-11 65+ PNEUMOCOCCAL [facility] Test 09:27:47 VACCINE (4 - PPSV23 if available, else PCV20) [code = 65+ PNEUMOCOCCAL VACCINE (4 - PPSV23 if available, else PCV20)] Future Scheduled 2022-11-11 INFLUENZA VACCINE [facility] Test 09:27:47 [code = INFLUENZA VACCINE] Future Scheduled 2022-11-11 Screening for [facility] Test 09:27:47 malignant neoplasm of colon (procedure) [code = 795259740] Future Scheduled 2022-11-11 Screening for [facility] Test 09:27:47 malignant neoplasm of colon (procedure) [code = 341147805] Future Scheduled 2022-11-11 Screening for [facility] Test 09:27:47 malignant neoplasm of colon (procedure) [code = 169851331] Future Scheduled 2022-11-11 SHINGLES VACCINES (1 Met [facility] Test 09:27:47 of 2) [code = SHINGLES VACCINES (1 of 2)] Future Scheduled 2022-11-11 BREAST CANCER [facility] Test 09:27:47 SCREENING [code = BREAST CANCER SCREENING] Future Scheduled 2022-11-11 Screening for [facility] Test 09:27:47 malignant neoplasm of colon (procedure) [code = 444400811] Future Scheduled 2022-11-11 Screening for [facility] Test 09:27:47 malignant neoplasm of colon (procedure) [code = 756536055] Future Scheduled 2022-11-11 HEPATITIS B VACCINES Met [facility] Test 09:27:47 (1 of 3 - Risk 3-dose series) [code = HEPATITIS B VACCINES (1 of 3 - Risk 3-dose series)] Future Scheduled 2022-11-11 COVID-19 VACCINE (3 - Me [facility] Test 09:27:47 Pfizer series) [code = COVID-19 VACCINE (3 - Pfizer series)] Future Scheduled 2022-11-11 65+ PNEUMOCOCCAL [facility] Test 09:27:47 VACCINE (4 - PPSV23 if available, else PCV20) [code = 65+ PNEUMOCOCCAL VACCINE (4 - PPSV23 if available, else PCV20)] Future Scheduled 2022-11-11 INFLUENZA VACCINE Method [facility] Test 09:27:47 [code = INFLUENZA VACCINE] Future Scheduled 2022-11-11 Screening for [facility] Test 09:27:47 malignant neoplasm of colon (procedure) [code = 566381256] Future Scheduled 2022-11-11 Screening for [facility] Test 09:27:47 malignant neoplasm of colon (procedure) [code = 308473805] Future Scheduled 2022-11-11 Screening for [facility] Test 09:27:47 malignant neoplasm of colon (procedure) [code = 576491386] Future Scheduled 2022-11-11 SHINGLES VACCINES (1 Met [facility] Test 09:27:47 of 2) [code = SHINGLES VACCINES (1 of 2)] Future Scheduled 2022-11-11 BREAST CANCER [facility] Test 09:27:47 SCREENING [code = BREAST CANCER SCREENING] Future Scheduled 2022-11-11 Screening for [facility] Test 09:27:47 malignant neoplasm of colon (procedure) [code = 140329501] Future Scheduled 2022-11-11 Screening for [facility] Test 09:27:47 malignant neoplasm of colon (procedure) [code = 533859930] Future Scheduled 2022-11-11 HEPATITIS B VACCINES Met [facility] Test 09:27:47 (1 of 3 - Risk 3-dose series) [code = HEPATITIS B VACCINES (1 of 3 - Risk 3-dose series)] Future Scheduled 2022-11-11 COVID-19 VACCINE (3 - Me [facility] Test 09:27:47 Pfizer series) [code = COVID-19 VACCINE (3 - Pfizer series)] Future Scheduled 2022-11-11 65+ [facility] Test 09:27:47 VACCINE (4 - PPSV23 if available, else PCV20) [code = 65+ PNEUMOCOCCAL VACCINE (4 - PPSV23 if available, else PCV20)] Future Scheduled 2022-11-11 INFLUENZA VACCINE [facility] Test 09:27:47 [code = INFLUENZA VACCINE] Future Scheduled 2022-10-27 Screening for [facility] Test 22:40:19 malignant neoplasm of colon (procedure) [code = 634000808] Future Scheduled 2022-10-27 Screening for [facility] Test 22:40:19 malignant neoplasm of colon (procedure) [code = 803608411] Future Scheduled 2022-10-27 Screening for [facility] Test 22:40:19 malignant neoplasm of colon (procedure) [code = 130178639] Future Scheduled 2022-10-27 SHINGLES VACCINES (1 Met [facility] Test 22:40:19 of 2) [code = SHINGLES VACCINES (1 of 2)] Future Scheduled 2022-10-27 BREAST CANCER [facility] Test 22:40:19 SCREENING [code = BREAST CANCER SCREENING] Future Scheduled 2022-10-27 Screening for [facility] Test 22:40:19 malignant neoplasm of colon (procedure) [code = 907316594] Future Scheduled 2022-10-27 Screening for [facility] Test 22:40:19 malignant neoplasm of colon (procedure) [code = 274820662] Future Scheduled 2022-10-27 HEPATITIS B VACCINES Met [facility] Test 22:40:19 (1 of 3 - Risk 3-dose series) [code = HEPATITIS B VACCINES (1 of 3 - Risk 3-dose series)] Future Scheduled 2022-10-27 COVID-19 VACCINE (3 - Me [facility] Test 22:40:19 Pfizer series) [code = COVID-19 VACCINE (3 - Pfizer series)] Future Scheduled 2022-10-27 65+ PNEUMOCOCCAL [facility] Test 22:40:19 VACCINE (4 - PPSV23 if available, else PCV20) [code = 65+ PNEUMOCOCCAL VACCINE (4 - PPSV23 if available, else PCV20)] Future Scheduled 2022-10-27 INFLUENZA VACCINE [facility] Test 22:40:19 [code = INFLUENZA VACCINE] Future Scheduled 2022-10-27 Screening for [facility] Test 22:40:19 malignant neoplasm of colon (procedure) [code = 095150420] Future Scheduled 2022-10-27 Screening for [facility] Test 22:40:19 malignant neoplasm of colon (procedure) [code = 454907669] Future Scheduled 2022-10-27 Screening for [facility] Test 22:40:19 malignant neoplasm of colon (procedure) [code = 662025054] Future Scheduled 2022-10-27 SHINGLES VACCINES (1 Met [facility] Test 22:40:19 of 2) [code = SHINGLES VACCINES (1 of 2)] Future Scheduled 2022-10-27 BREAST CANCER [facility] Test 22:40:19 SCREENING [code = BREAST CANCER SCREENING] Future Scheduled 2022-10-27 Screening for [facility] Test 22:40:19 malignant neoplasm of colon (procedure) [code = 112525300] Future Scheduled 2022-10-27 Screening for [facility] Test 22:40:19 malignant neoplasm of colon (procedure) [code = 650375182] Future Scheduled 2022-10-27 HEPATITIS B VACCINES Met [facility] Test 22:40:19 (1 of 3 - Risk 3-dose series) [code = HEPATITIS B VACCINES (1 of 3 - Risk 3-dose series)] Future Scheduled 2022-10-27 COVID-19 VACCINE (3 - [facility] Test 22:40:19 Pfizer series) [code = COVID-19 VACCINE (3 - Pfizer series)] Future Scheduled 2022-10-27 65+ PNEUMOCOCCAL [facility] Test 22:40:19 VACCINE (4 - PPSV23 if available, else PCV20) [code = 65+ PNEUMOCOCCAL VACCINE (4 - PPSV23 if available, else PCV20)] Future Scheduled 2022-10-27 INFLUENZA VACCINE [facility] Test 22:40:19 [code = INFLUENZA VACCINE] Future Scheduled 2022-09-10 SHINGLES VACCINES (1 Met [facility] Test 15:06:53 of 2) [code = SHINGLES VACCINES (1 of 2)] Future Scheduled 2022-09-10 BREAST CANCER [facility] Test 15:06:53 SCREENING [code = BREAST CANCER SCREENING] Future Scheduled 2022-09-10 COLONOSCOPY SCREENING [facility] Test 15:06:53 [code = COLONOSCOPY SCREENING] Future Scheduled 2022-09-10 HEPATITIS B VACCINES Met [facility] Test 15:06:53 (1 of 3 - Risk 3-dose series) [code = HEPATITIS B VACCINES (1 of 3 - Risk 3-dose series)] Future Scheduled 2022-09-10 COVID-19 VACCINE (3 - Me [facility] Test 15:06:53 Booster for Pfizer series) [code [...] 2022-09-10 SHINGLES VACCINES (1 Met [facility] Test 15:06:53 of 2) [code = SHINGLES VACCINES (1 of 2)] Future Scheduled 2022-09-10 BREAST CANCER [facility] Test 15:06:53 SCREENING [code = BREAST CANCER SCREENING] Future Scheduled 2022-09-10 COLONOSCOPY SCREENING [facility] Test 15:06:53 [code = COLONOSCOPY SCREENING] Future Scheduled 2022-09-10 HEPATITIS B VACCINES Met [facility] Test 15:06:53 (1 of 3 - Risk 3-dose series) [code = HEPATITIS B VACCINES (1 of 3 - Risk 3-dose series)] Future Scheduled 2022-09-10 COVID-19 VACCINE (3 - Me [facility] Test 15:06:53 Booster for Pfizer series) [code = COVID-19 VACCINE (3 - Booster for Pfizer series)] Future Scheduled 2022-09-10 65+ PNEUMOCOCCAL [facility] Test 15:06:53 VACCINE (4 - PPSV23 if available, else PCV20) [code = 65+ PNEUMOCOCCAL VACCINE (4 - PPSV23 if available, else PCV20)] Future Scheduled 2022-09-10 INFLUENZA VACCINE Method [facility] Test 15:06:53 [code = INFLUENZA VACCINE] Future Scheduled 2022-09-10 SHINGLES VACCINES (1 Met [facility] Test 15:06:53 of 2) [code = SHINGLES VACCINES (1 of 2)] Future Scheduled 2022-09-10 BREAST CANCER [facility] Test 15:06:53 SCREENING [code = BREAST CANCER SCREENING] Future Scheduled 2022-09-10 COLONOSCOPY SCREENING [facility] Test 15:06:53 [code = COLONOSCOPY SCREENING] Future Scheduled 2022-09-10 HEPATITIS B VACCINES Met [facility] Test 15:06:53 (1 of 3 - Risk 3-dose series) [code = HEPATITIS B VACCINES (1 of 3 - Risk 3-dose series)] Future Scheduled 2022-09-10 COVID-19 VACCINE (3 - [facility] Test 15:06:53 Booster for Pfizer series) [code = COVID-19 VACCINE (3 - Booster for Pfizer series)] Future Scheduled 2022-09-10 65+ PNEUMOCOCCAL [facility] Test 15:06:53 VACCINE (4 - PPSV23 if available, else PCV20) [code = 65+ PNEUMOCOCCAL VACCINE (4 - PPSV23 if available, else PCV20)] Future Scheduled 2022-09-10 INFLUENZA VACCINE Method [facility] Test 15:06:53 [code = INFLUENZA VACCINE] Future Scheduled 2022-09-10 SHINGLES VACCINES (1 Met [facility] Test 15:06:53 of 2) [code = SHINGLES VACCINES (1 of 2)] Future Scheduled 2022-09-10 BREAST CANCER [facility] Test 15:06:53 SCREENING [code = BREAST CANCER SCREENING] Future Scheduled 2022-09-10 COLONOSCOPY SCREENING [facility] Test 15:06:53 [code = COLONOSCOPY SCREENING] Future Scheduled 2022-09-10 HEPATITIS B VACCINES Met [facility] Test 15:06:53 (1 of 3 - Risk 3-dose series) [code = HEPATITIS B VACCINES (1 of 3 - Risk 3-dose series)] Future Scheduled 2022-09-10 COVID-19 VACCINE (3 - Me [facility] Test 15:06:53 Booster for Pfizer series) [code = COVID-19 VACCINE (3 - Booster for Pfizer series)] Future Scheduled 2022-09-10 65+ PNEUMOCOCCAL [facility] Test 15:06:53 VACCINE (4 - PPSV23 if available, else PCV20) [code = 65+ PNEUMOCOCCAL VACCINE (4 - PPSV23 if available, else PCV20)] Future Scheduled 2022-09-10 INFLUENZA VACCINE Method [facility] Test 15:06:53 [code = INFLUENZA VACCINE] Future Scheduled 2022-09-10 SHINGLES VACCINES (1 Met [facility] Test 15:06:53 of 2) [code = SHINGLES VACCINES (1 of 2)] Future Scheduled 2022-09-10 BREAST CANCER [facility] Test 15:06:53 SCREENING [code = BREAST CANCER SCREENING] Future Scheduled 2022-09-10 COLONOSCOPY SCREENING [facility] Test 15:06:53 [code = COLONOSCOPY SCREENING] Future Scheduled 2022-09-10 HEPATITIS B VACCINES Met [facility] Test 15:06:53 (1 of 3 - Risk 3-dose series) [code = HEPATITIS B VACCINES (1 of 3 - Risk 3-dose series)] Future Scheduled 2022-09-10 COVID-19 VACCINE (3 - [facility] Test 15:06:53 Booster for Pfizer series) [code = COVID-19 VACCINE (3 - Booster for Pfizer series)] Future Scheduled 2022-09-10 65+ PNEUMOCOCCAL [facility] Test 15:06:53 VACCINE (4 - PPSV23 if available, else PCV20) [code = 65+ PNEUMOCOCCAL VACCINE (4 - PPSV23 if available, else PCV20)] Future Scheduled 2022-09-10 INFLUENZA VACCINE Method [facility] Test 15:06:53 [code = INFLUENZA VACCINE] Future Scheduled 2022-09-10 SHINGLES VACCINES (1 Met [facility] Test 15:06:53 of 2) [code = SHINGLES VACCINES (1 of 2)] Future Scheduled 2022-09-10 BREAST CANCER [facility] Test 15:06:53 SCREENING [code = BREAST CANCER SCREENING] Future Scheduled 2022-09-10 COLONOSCOPY SCREENING [facility] Test 15:06:53 [code = COLONOSCOPY SCREENING] Future Scheduled 2022-09-10 HEPATITIS B VACCINES Met [facility] Test 15:06:53 (1 of 3 - Risk 3-dose series) [code = HEPATITIS B VACCINES (1 of 3 - Risk 3-dose series)] Future Scheduled 2022-09-10 COVID-19 VACCINE (3 - Me [facility] Test 15:06:53 Booster for Pfizer series) [code [...] 2022-09-10 SHINGLES VACCINES (1 Met [facility] Test 15:06:53 of 2) [code = SHINGLES VACCINES (1 of 2)] Future Scheduled 2022-09-10 BREAST CANCER [facility] Test 15:06:53 SCREENING [code = BREAST CANCER SCREENING] Future Scheduled 2022-09-10 COLONOSCOPY SCREENING [facility] Test 15:06:53 [code = COLONOSCOPY SCREENING] Future Scheduled 2022-09-10 HEPATITIS B VACCINES Met [facility] Test 15:06:53 (1 of 3 - Risk 3-dose series) [code = HEPATITIS B VACCINES (1 of 3 - Risk 3-dose series)] Future Scheduled 2022-09-10 COVID-19 VACCINE (3 - Me [facility] Test 15:06:53 Booster for Pfizer series) [code [...] 2022-09-10 SHINGLES VACCINES (1 Met [facility] Test 15:06:53 of 2) [code = SHINGLES VACCINES (1 of 2)] Future Scheduled 2022-09-10 BREAST CANCER [facility] Test 15:06:53 SCREENING [code = BREAST CANCER SCREENING] Future Scheduled 2022-09-10 COLONOSCOPY SCREENING [facility] Test 15:06:53 [code = COLONOSCOPY SCREENING] Future Scheduled 2022-09-10 HEPATITIS B VACCINES Met [facility] Test 15:06:53 (1 of 3 - Risk 3-dose series) [code = HEPATITIS B VACCINES (1 of 3 - Risk 3-dose series)] Future Scheduled 2022-09-10 COVID-19 VACCINE (3 - Me [facility] Test 15:06:53 Booster for Pfizer series) [code [...] 2022-08-26 SHINGLES VACCINES (1 Met [facility] Test 14:43:48 of 2) [code = SHINGLES VACCINES (1 of 2)] Future Scheduled 2022-08-26 BREAST CANCER [facility] Test 14:43:48 SCREENING [code = BREAST CANCER SCREENING] Future Scheduled 2022-08-26 COLONOSCOPY SCREENING [facility] Test 14:43:48 [code = COLONOSCOPY SCREENING] Future Scheduled 2022-08-26 HEPATITIS B VACCINES Met [facility] Test 14:43:48 (1 of 3 - Risk 3-dose series) [code = HEPATITIS B VACCINES (1 of 3 - Risk 3-dose series)] Future Scheduled 2022-08-26 COVID-19 VACCINE (3 - [facility] Test 14:43:48 Booster for Pfizer series) [code = COVID-19 VACCINE (3 - Booster for Pfizer series)] Future Scheduled 2022-08-26 65+ [facility] Test 14:43:48 VACCINE (4 - PPSV23 if available, else PCV20) [code = 65+ PNEUMOCOCCAL VACCINE (4 - PPSV23 if available, else PCV20)] Future Scheduled 2022-08-26 INFLUENZA VACCINE [facility] Test 14:43:48 [code = INFLUENZA VACCINE] Future Scheduled 2022-08-07 SHINGLES VACCINES (1 Met [facility] Test 23:30:11 of 2) [code = SHINGLES VACCINES (1 of 2)] Future Scheduled 2022-08-07 BREAST CANCER [facility] Test 23:30:11 SCREENING [code = BREAST CANCER SCREENING] Future Scheduled 2022-08-07 COLONOSCOPY SCREENING [facility] Test 23:30:11 [code = COLONOSCOPY SCREENING] Future Scheduled 2022-08-07 HEPATITIS B VACCINES Met [facility] Test 23:30:11 (1 of 3 - Risk 3-dose series) [code = HEPATITIS B VACCINES (1 of 3 - Risk 3-dose series)] Future Scheduled 2022-08-07 COVID-19 VACCINE (3 - [facility] Test 23:30:11 Booster for Pfizer series) [code = COVID-19 VACCINE (3 - Booster for Pfizer series)] Future Scheduled 2022-08-07 65+ [facility] VACCINE (4 - PPSV23 if available, else PCV20) [code = 65+ PNEUMOCOCCAL VACCINE (4 - PPSV23 if available, else PCV20)] Future Scheduled 2022-08-07 INFLUENZA VACCINE Method [facility] Test 23:30:11 [code = INFLUENZA VACCINE] Future Scheduled 2022-08-07 SHINGLES VACCINES (1 Met [facility] Test 23:30:11 of 2) [code = SHINGLES VACCINES (1 of 2)] Future Scheduled 2022-08-07 BREAST CANCER [facility] Test 23:30:11 SCREENING [code = BREAST CANCER SCREENING] Future Scheduled 2022-08-07 COLONOSCOPY SCREENING [facility] Test 23:30:11 [code = COLONOSCOPY SCREENING] Future Scheduled 2022-08-07 HEPATITIS B VACCINES Met [facility] Test 23:30:11 (1 of 3 - Risk 3-dose series) [code = HEPATITIS B VACCINES (1 of 3 - Risk 3-dose series)] Future Scheduled 2022-08-07 COVID-19 VACCINE (3 - [facility] Test 23:30:11 Booster for Pfizer series) [code = COVID-19 VACCINE (3 - Booster for Pfizer series)] Future Scheduled 2022-08-07 65+ [facility] VACCINE (4 - PPSV23 if available, else PCV20) [code = 65+ PNEUMOCOCCAL VACCINE (4 - PPSV23 if available, else PCV20)] Future Scheduled 2022-08-07 INFLUENZA VACCINE Method [facility] Test 23:30:11 [code = INFLUENZA VACCINE] Future Scheduled 2022-08-06 SHINGLES VACCINES (1 Met [facility] Test 15:48:02 of 2) [code = SHINGLES VACCINES (1 of 2)] Future Scheduled 2022-08-06 BREAST CANCER [facility] Test 15:48:02 SCREENING [code = BREAST CANCER SCREENING] Future Scheduled 2022-08-06 COLONOSCOPY SCREENING [facility] Test 15:48:02 [code = COLONOSCOPY SCREENING] Future Scheduled 2022-08-06 HEPATITIS B VACCINES Met [facility] Test 15:48:02 (1 of 3 - Risk 3-dose series) [code = HEPATITIS B VACCINES (1 of 3 - Risk 3-dose series)] Future Scheduled 2022-08-06 COVID-19 VACCINE (3 - [facility] Test 15:48:02 Booster for Pfizer series) [code = COVID-19 VACCINE (3 - Booster for Pfizer series)] Future Scheduled 2022-08-06 65+ PNEUMOCOCCAL [facility] Test 15:48:02 VACCINE (4 - PPSV23 if available, else PCV20) [code = 65+ PNEUMOCOCCAL VACCINE (4 - PPSV23 if available, else PCV20)] Future Scheduled 2022-08-06 INFLUENZA VACCINE Method [facility] Test 15:48:02 [code = INFLUENZA VACCINE] Future Scheduled 2022-06-11 SHINGLES VACCINES (1 Met [facility] Test 16:10:12 of 2) [code = SHINGLES VACCINES (1 of 2)] Future Scheduled 2022-06-11 BREAST CANCER [facility] Test 16:10:12 SCREENING [code = BREAST CANCER SCREENING] Future Scheduled 2022-06-11 COLONOSCOPY SCREENING [facility] Test 16:10:12 [code = COLONOSCOPY SCREENING] Future Scheduled 2022-06-11 HEPATITIS B VACCINES Met [facility] Test 16:10:12 (1 of 3 - Risk 3-dose series) [code = HEPATITIS B VACCINES (1 of 3 - Risk 3-dose series)] Future Scheduled 2022-06-11 COVID-19 VACCINE (3 - Me [facility] Test 16:10:12 Booster for Pfizer series) [code = COVID-19 VACCINE (3 - Booster for Pfizer series)] Future Scheduled 2022-06-11 65+ [facility] Test 16:10:12 VACCINE (4 - PPSV23 if available, else PCV20) [code = 65+ PNEUMOCOCCAL VACCINE (4 - PPSV23 if available, else PCV20)] Future Scheduled 2022-06-11 INFLUENZA VACCINE [facility] Test 16:10:12 [code = INFLUENZA VACCINE] Future Scheduled 2022-06-11 SHINGLES VACCINES (1 Met [facility] Test 16:10:12 of 2) [code = SHINGLES VACCINES (1 of 2)] Future Scheduled 2022-06-11 BREAST CANCER [facility] Test 16:10:12 SCREENING [code = BREAST CANCER SCREENING] Future Scheduled 2022-06-11 COLONOSCOPY SCREENING [facility] Test 16:10:12 [code = COLONOSCOPY SCREENING] Future Scheduled 2022-06-11 HEPATITIS B VACCINES Met [facility] Test 16:10:12 (1 of 3 - Risk 3-dose series) [code = HEPATITIS B VACCINES (1 of 3 - Risk 3-dose series)] Future Scheduled 2022-06-11 COVID-19 VACCINE (3 - Me [facility] Test 16:10:12 Booster for Pfizer series) [code = COVID-19 VACCINE (3 - Booster for Pfizer series)] Future Scheduled 2022-06-11 65+ [facility] Test 16:10:12 VACCINE (4 - PPSV23 if available, else PCV20) [code = 65+ PNEUMOCOCCAL VACCINE (4 - PPSV23 if available, else PCV20)] Future Scheduled 2022-06-11 INFLUENZA VACCINE [facility] Test 16:10:12 [code = INFLUENZA VACCINE] Future Scheduled 2022-06-11 SHINGLES VACCINES (1 Met [facility] Test 16:10:12 of 2) [code = SHINGLES VACCINES (1 of 2)] Future Scheduled 2022-06-11 BREAST CANCER [facility] Test 16:10:12 SCREENING [code = BREAST CANCER SCREENING] Future Scheduled 2022-06-11 COLONOSCOPY SCREENING [facility] Test 16:10:12 [code = COLONOSCOPY SCREENING] Future Scheduled 2022-06-11 HEPATITIS B VACCINES Met [facility] Test 16:10:12 (1 of 3 - Risk 3-dose series) [code = HEPATITIS B VACCINES (1 of 3 - Risk 3-dose series)] Future Scheduled 2022-06-11 COVID-19 VACCINE (3 - Me [facility] Test 16:10:12 Booster for Pfizer series) [code = COVID-19 VACCINE (3 - Booster for Pfizer series)] Future Scheduled 2022-06-11 65+ [facility] Test 16:10:12 VACCINE (4 - PPSV23 if available, else PCV20) [code = 65+ PNEUMOCOCCAL VACCINE (4 - PPSV23 if available, else PCV20)] Future Scheduled 2022-06-11 INFLUENZA VACCINE [facility] Test 16:10:12 [code = INFLUENZA VACCINE] Future Scheduled 2022-06-11 SHINGLES VACCINES (1 Met [facility] Test 16:10:12 of 2) [code = SHINGLES VACCINES (1 of 2)] Future Scheduled 2022-06-11 BREAST CANCER [facility] Test 16:10:12 SCREENING [code = BREAST CANCER SCREENING] Future Scheduled 2022-06-11 COLONOSCOPY SCREENING [facility] Test 16:10:12 [code = COLONOSCOPY SCREENING] Future Scheduled 2022-06-11 HEPATITIS B VACCINES Met [facility] Test 16:10:12 (1 of 3 - Risk 3-dose series) [code = HEPATITIS B VACCINES (1 of 3 - Risk 3-dose series)] Future Scheduled 2022-06-11 COVID-19 VACCINE (3 - [facility] Test 16:10:12 Booster for Pfizer series) [code = COVID-19 VACCINE (3 - Booster for Pfizer series)] Future Scheduled 2022-06-11 65+ [facility] Test 16:10:12 VACCINE (4 - PPSV23 if available, else PCV20) [code = 65+ PNEUMOCOCCAL VACCINE (4 - PPSV23 if available, else PCV20)] Future Scheduled 2022-06-11 INFLUENZA VACCINE [facility] Test 16:10:12 [code = INFLUENZA VACCINE] Future Scheduled 2022-06-11 SHINGLES VACCINES (1 Met [facility] Test 16:10:12 of 2) [code = SHINGLES VACCINES (1 of 2)] Future Scheduled 2022-06-11 BREAST CANCER [facility] Test 16:10:12 SCREENING [code = BREAST CANCER SCREENING] Future Scheduled 2022-06-11 COLONOSCOPY SCREENING Me [facility] Test 16:10:12 [code = COLONOSCOPY SCREENING] Future Scheduled 2022-06-11 HEPATITIS B VACCINES Met [facility] Test 16:10:12 (1 of 3 - Risk 3-dose series) [code = HEPATITIS B VACCINES (1 of 3 - Risk 3-dose series)] Future Scheduled 2022-06-11 COVID-19 VACCINE (3 - Me [facility] Test 16:10:12 Booster for Pfizer series) [code = COVID-19 VACCINE (3 - Booster for Pfizer series)] Future Scheduled 2022-06-11 65+ [facility] 16:10:12 VACCINE (4 - PPSV23 if available, else PCV20) [code = 65+ PNEUMOCOCCAL VACCINE (4 - PPSV23 if available, else PCV20)] Future Scheduled 2022-06-11 INFLUENZA VACCINE [facility] Test 16:10:12 [code = INFLUENZA VACCINE] Future Scheduled 2022-06-11 SHINGLES VACCINES (1 Met [facility] Test 16:10:12 of 2) [code = SHINGLES VACCINES (1 of 2)] Future Scheduled 2022-06-11 BREAST CANCER [facility] Test 16:10:12 SCREENING [code = BREAST CANCER SCREENING] Future Scheduled 2022-06-11 COLONOSCOPY SCREENING [facility] Test 16:10:12 [code = COLONOSCOPY SCREENING] Future Scheduled 2022-06-11 HEPATITIS B VACCINES Met [facility] Test 16:10:12 (1 of 3 - Risk 3-dose series) [code = HEPATITIS B VACCINES (1 of 3 - Risk 3-dose series)] Future Scheduled 2022-06-11 COVID-19 VACCINE (3 - Me [facility] Test 16:10:12 Booster for Pfizer series) [code = COVID-19 VACCINE (3 - Booster for Pfizer series)] Future Scheduled 2022-06-11 65+ [facility] 16:10:12 VACCINE (4 - PPSV23 if available, else PCV20) [code = 65+ PNEUMOCOCCAL VACCINE (4 - PPSV23 if available, else PCV20)] Future Scheduled 2022-06-11 INFLUENZA VACCINE [facility] Test 16:10:12 [code = INFLUENZA VACCINE] Future Scheduled 2022-06-11 SHINGLES VACCINES (1 Met [facility] Test 16:10:12 of 2) [code = SHINGLES VACCINES (1 of 2)] Future Scheduled 2022-06-11 BREAST CANCER [facility] Test 16:10:12 SCREENING [code = BREAST CANCER SCREENING] Future Scheduled 2022-06-11 COLONOSCOPY SCREENING [facility] Test 16:10:12 [code = COLONOSCOPY SCREENING] Future Scheduled 2022-06-11 HEPATITIS B VACCINES Met [facility] Test 16:10:12 (1 of 3 - Risk 3-dose series) [code = HEPATITIS B VACCINES (1 of 3 - Risk 3-dose series)] Future Scheduled 2022-06-11 COVID-19 VACCINE (3 - Me [facility] Test 16:10:12 Booster for Pfizer series) [code = COVID-19 VACCINE (3 - Booster for Pfizer series)] Future Scheduled 2022-06-11 65+ PNEUMOCOCCAL [facility] Test 16:10:12 VACCINE (4 - PPSV23 if available, else PCV20) [code = 65+ PNEUMOCOCCAL VACCINE (4 - PPSV23 if available, else PCV20)] Future Scheduled 2022-06-11 INFLUENZA VACCINE [facility] Test 16:10:12 [code = INFLUENZA VACCINE] Future Scheduled 2022-06-11 SHINGLES VACCINES (1 Met [facility] Test 16:10:12 of 2) [code = SHINGLES VACCINES (1 of 2)] Future Scheduled 2022-06-11 BREAST CANCER [facility] Test 16:10:12 SCREENING [code = BREAST CANCER SCREENING] Future Scheduled 2022-06-11 COLONOSCOPY SCREENING [facility] Test 16:10:12 [code = COLONOSCOPY SCREENING] Future Scheduled 2022-06-11 HEPATITIS B VACCINES Met [facility] Test 16:10:12 (1 of 3 - Risk 3-dose series) [code = HEPATITIS B VACCINES (1 of 3 - Risk 3-dose series)] Future Scheduled 2022-06-11 COVID-19 VACCINE (3 - Me [facility] Test 16:10:12 Booster for Pfizer series) [code = COVID-19 VACCINE (3 - Booster for Pfizer series)] Future Scheduled 2022-06-11 65+ [facility] Test 16:10:12 VACCINE (4 - PPSV23 if available, else PCV20) [code = 65+ PNEUMOCOCCAL VACCINE (4 - PPSV23 if available, else PCV20)] Future Scheduled 2022-06-11 INFLUENZA VACCINE [facility] Test 16:10:12 [code = INFLUENZA VACCINE] Future Scheduled 2022-06-11 SHINGLES VACCINES (1 Met [facility] Test 16:10:12 of 2) [code = SHINGLES VACCINES (1 of 2)] Future Scheduled 2022-06-11 BREAST CANCER [facility] Test 16:10:12 SCREENING [code = BREAST CANCER SCREENING] Future Scheduled 2022-06-11 COLONOSCOPY SCREENING [facility] Test 16:10:12 [code = COLONOSCOPY SCREENING] Future Scheduled 2022-06-11 HEPATITIS B VACCINES Met [facility] Test 16:10:12 (1 of 3 - Risk 3-dose series) [code = HEPATITIS B VACCINES (1 of 3 - Risk 3-dose series)] Future Scheduled 2022-06-11 COVID-19 VACCINE (3 - Me [facility] Test 16:10:12 Booster for Pfizer series) [code = COVID-19 VACCINE (3 - Booster for Pfizer series)] Future Scheduled 2022-06-11 65+ [facility] Test 16:10:12 VACCINE (4 - PPSV23 if available, else PCV20) [code = 65+ PNEUMOCOCCAL VACCINE (4 - PPSV23 if available, else PCV20)] Future Scheduled 2022-06-11 INFLUENZA VACCINE [facility] Test 16:10:12 [code = INFLUENZA VACCINE] Future Scheduled 2022-05-10 SHINGLES VACCINES (1 Met [facility] Test 10:21:35 of 2) [code = SHINGLES VACCINES (1 of 2)] Future Scheduled 2022-05-10 BREAST CANCER [facility] Test 10:21:35 SCREENING [code = BREAST CANCER SCREENING] Future Scheduled 2022-05-10 COLONOSCOPY SCREENING [facility] Test 10:21:35 [code = COLONOSCOPY SCREENING] Future Scheduled 2022-05-10 HEPATITIS B VACCINES Met [facility] Test 10:21:35 (1 of 3 - Risk 3-dose series) [code = HEPATITIS B VACCINES (1 of 3 - Risk 3-dose series)] Future Scheduled 2022-05-10 COVID-19 VACCINE (3 - Me [facility] Test 10:21:35 Booster for Pfizer series) [code = COVID-19 VACCINE (3 - Booster for Pfizer series)] Future Scheduled 2022-05-10 65+ PNEUMOCOCCAL [facility] Test 10:21:35 VACCINE (4 - PPSV23 if available, else PCV20) [code = 65+ PNEUMOCOCCAL VACCINE (4 - PPSV23 if available, else PCV20)] Future Scheduled 2022-05-10 INFLUENZA VACCINE Method [facility] Test 10:21:35 [code = INFLUENZA VACCINE] Future Scheduled 2022-05-10 SHINGLES VACCINES (1 Met [facility] Test 10:21:35 of 2) [code = SHINGLES VACCINES (1 of 2)] Future Scheduled 2022-05-10 BREAST CANCER [facility] Test 10:21:35 SCREENING [code = BREAST CANCER SCREENING] Future Scheduled 2022-05-10 COLONOSCOPY SCREENING [facility] Test 10:21:35 [code = COLONOSCOPY SCREENING] Future Scheduled 2022-05-10 HEPATITIS B VACCINES Met [facility] Test 10:21:35 (1 of 3 - Risk 3-dose series) [code = HEPATITIS B VACCINES (1 of 3 - Risk 3-dose series)] Future Scheduled 2022-05-10 COVID-19 VACCINE (3 - [facility] Test 10:21:35 Booster for Pfizer series) [code = COVID-19 VACCINE (3 - Booster for Pfizer series)] Future Scheduled 2022-05-10 65+ PNEUMOCOCCAL [facility] Test 10:21:35 VACCINE (4 - PPSV23 if available, else PCV20) [code = 65+ PNEUMOCOCCAL VACCINE (4 - PPSV23 if available, else PCV20)] Future Scheduled 2022-05-10 INFLUENZA VACCINE Method [facility] Test 10:21:35 [code = INFLUENZA VACCINE] Future Scheduled 2022-05-06 SHINGLES VACCINES (1 Met [facility] Test 14:03:13 of 2) [code = SHINGLES VACCINES (1 of 2)] Future Scheduled 2022-05-06 BREAST CANCER [facility] Test 14:03:13 SCREENING [code = BREAST CANCER SCREENING] Future Scheduled 2022-05-06 COLONOSCOPY SCREENING [facility] Test 14:03:13 [code = COLONOSCOPY SCREENING] Future Scheduled 2022-05-06 HEPATITIS B VACCINES Met [facility] Test 14:03:13 (1 of 3 - Risk 3-dose series) [code = HEPATITIS B VACCINES (1 of 3 - Risk 3-dose series)] Future Scheduled 2022-05-06 COVID-19 VACCINE (3 - [facility] Test 14:03:13 Booster for Pfizer series) [code = COVID-19 VACCINE (3 - Booster for Pfizer series)] Future Scheduled 2022-05-06 65+ PNEUMOCOCCAL [facility] Test 14:03:13 VACCINE (4 - PPSV23 if available, else PCV20) [code = 65+ PNEUMOCOCCAL VACCINE (4 - PPSV23 if available, else PCV20)] Future Scheduled 2022-05-06 INFLUENZA VACCINE [facility] Test 14:03:13 [code = INFLUENZA VACCINE] Future Scheduled 2022-04-30 SHINGLES VACCINES (1 Met [facility] Test 01:07:32 of 2) [code = SHINGLES VACCINES (1 of 2)] Future Scheduled 2022-04-30 BREAST CANCER [facility] Test 01:07:32 SCREENING [code = BREAST CANCER SCREENING] Future Scheduled 2022-04-30 COLONOSCOPY SCREENING [facility] Test 01:07:32 [code = COLONOSCOPY SCREENING] Future Scheduled 2022-04-30 HEPATITIS B VACCINES Met [facility] Test 01:07:32 (1 of 3 - Risk 3-dose series) [code = HEPATITIS B VACCINES (1 of 3 - Risk 3-dose series)] Future Scheduled 2022-04-30 COVID-19 VACCINE (3 - [facility] Test 01:07:32 Booster for Pfizer series) [code = COVID-19 VACCINE (3 - Booster for Pfizer series)] Future Scheduled 2022-04-30 65+ PNEUMOCOCCAL [facility] Test 01:07:32 VACCINE (4 - PPSV23 if available, else PCV20) [code = 65+ PNEUMOCOCCAL VACCINE (4 - PPSV23 if available, else PCV20)] Future Scheduled 2022-04-30 INFLUENZA VACCINE Method [facility] Test 01:07:32 [code = INFLUENZA VACCINE] Future Scheduled 2022-04-30 SHINGLES VACCINES (1 Met [facility] Test 01:07:32 of 2) [code = SHINGLES VACCINES (1 of 2)] Future Scheduled 2022-04-30 BREAST CANCER [facility] Test 01:07:32 SCREENING [code = BREAST CANCER SCREENING] Future Scheduled 2022-04-30 COLONOSCOPY SCREENING [facility] Test 01:07:32 [code = COLONOSCOPY SCREENING] Future Scheduled 2022-04-30 HEPATITIS B VACCINES Met [facility] Test 01:07:32 (1 of 3 - Risk 3-dose series) [code = HEPATITIS B VACCINES (1 of 3 - Risk 3-dose series)] Future Scheduled 2022-04-30 COVID-19 VACCINE (3 - Me [facility] Test 01:07:32 Booster for Pfizer series) [code = COVID-19 VACCINE (3 - Booster for Pfizer series)] Future Scheduled 2022-04-30 65+ PNEUMOCOCCAL [facility] Test 01:07:32 VACCINE (4 - PPSV23 if available, else PCV20) [code = 65+ PNEUMOCOCCAL VACCINE (4 - PPSV23 if available, else PCV20)] Future Scheduled 2022-04-30 INFLUENZA VACCINE Method [facility] Test 01:07:32 [code = INFLUENZA VACCINE] Future Scheduled 2022-04-30 SHINGLES VACCINES (1 Met [facility] Test 01:07:32 of 2) [code = SHINGLES VACCINES (1 of 2)] Future Scheduled 2022-04-30 BREAST CANCER [facility] Test 01:07:32 SCREENING [code = BREAST CANCER SCREENING] Future Scheduled 2022-04-30 COLONOSCOPY SCREENING [facility] Test 01:07:32 [code = COLONOSCOPY SCREENING] Future Scheduled 2022-04-30 HEPATITIS B VACCINES Met [facility] Test 01:07:32 (1 of 3 - Risk 3-dose series) [code = HEPATITIS B VACCINES (1 of 3 - Risk 3-dose series)] Future Scheduled 2022-04-30 COVID-19 VACCINE (3 - [facility] Test 01:07:32 Booster for Pfizer series) [...] 2022-04-25 SHINGLES VACCINES (1 Met [facility] Test 01:45:02 of 2) [code = SHINGLES VACCINES (1 of 2)] Future Scheduled 2022-04-25 BREAST CANCER [facility] Test 01:45:02 SCREENING [code = BREAST CANCER SCREENING] Future Scheduled 2022-04-25 COLONOSCOPY SCREENING [facility] Test 01:45:02 [code = COLONOSCOPY SCREENING] Future Scheduled 2022-04-25 HEPATITIS B VACCINES Met [facility] Test 01:45:02 (1 of 3 - Risk 3-dose series) [code = HEPATITIS B VACCINES (1 of 3 - Risk 3-dose series)] Future Scheduled 2022-04-25 COVID-19 VACCINE (3 - Me [facility] Test 01:45:02 Booster for Pfizer series) [code = COVID-19 VACCINE (3 - Booster for Pfizer series)] Future Scheduled 2022-04-25 65+ [facility] Test 01:45:02 VACCINE (4 - PPSV23 if available, else PCV20) [code = 65+ PNEUMOCOCCAL VACCINE (4 - PPSV23 if available, else PCV20)] Future Scheduled 2022-04-25 INFLUENZA VACCINE [facility] Test 01:45:02 [code = INFLUENZA VACCINE] Future Scheduled 2022-03-25 SHINGLES VACCINES (1 Met [facility] Test 14:48:42 of 2) [code = SHINGLES VACCINES (1 of 2)] Future Scheduled 2022-03-25 BREAST CANCER [facility] Test 14:48:42 SCREENING [code = BREAST CANCER SCREENING] Future Scheduled 2022-03-25 COLONOSCOPY SCREENING [facility] Test 14:48:42 [code = COLONOSCOPY SCREENING] Future Scheduled 2022-03-25 HEPATITIS B VACCINES Met [facility] Test 14:48:42 (1 of 3 - Risk 3-dose series) [code = HEPATITIS B VACCINES (1 of 3 - Risk 3-dose series)] Future Scheduled 2022-03-25 COVID-19 VACCINE (3 - [facility] Test 14:48:42 Booster for Pfizer series) [code = COVID-19 VACCINE (3 - Booster for Pfizer series)] Future Scheduled 2022-03-25 65+ [facility] 14:48:42 VACCINE (4 - PPSV23 if available, else PCV20) [code = 65+ PNEUMOCOCCAL VACCINE (4 - PPSV23 if available, else PCV20)] Future Scheduled 2022-03-25 INFLUENZA VACCINE [facility] Test 14:48:42 [code = INFLUENZA VACCINE] Future Scheduled 2022-03-25 SHINGLES VACCINES (1 Met [facility] Test 14:48:42 of 2) [code = SHINGLES VACCINES (1 of 2)] Future Scheduled 2022-03-25 BREAST CANCER [facility] Test 14:48:42 SCREENING [code = BREAST CANCER SCREENING] Future Scheduled 2022-03-25 COLONOSCOPY SCREENING [facility] Test 14:48:42 [code = COLONOSCOPY SCREENING] Future Scheduled 2022-03-25 HEPATITIS B VACCINES Met [facility] Test 14:48:42 (1 of 3 - Risk 3-dose series) [code = HEPATITIS B VACCINES (1 of 3 - Risk 3-dose series)] Future Scheduled 2022-03-25 COVID-19 VACCINE (3 - [facility] Test 14:48:42 Booster for Pfizer series) [code = COVID-19 VACCINE (3 - Booster for Pfizer series)] Future Scheduled 2022-03-25 65+ [facility] Test 14:48:42 VACCINE (4 - PPSV23 if available, else PCV20) [code = 65+ PNEUMOCOCCAL VACCINE (4 - PPSV23 if available, else PCV20)] Future Scheduled 2022-03-25 INFLUENZA VACCINE [facility] Test 14:48:42 [code = INFLUENZA VACCINE] Future Scheduled 2022-03-25 SHINGLES VACCINES (1 Met [facility] Test 14:48:42 of 2) [code = SHINGLES VACCINES (1 of 2)] Future Scheduled 2022-03-25 BREAST CANCER [facility] Test 14:48:42 SCREENING [code = BREAST CANCER SCREENING] Future Scheduled 2022-03-25 COLONOSCOPY SCREENING [facility] Test 14:48:42 [code = COLONOSCOPY SCREENING] Future Scheduled 2022-03-25 HEPATITIS B VACCINES Met [facility] Test 14:48:42 (1 of 3 - Risk 3-dose series) [code = HEPATITIS B VACCINES (1 of 3 - Risk 3-dose series)] Future Scheduled 2022-03-25 COVID-19 VACCINE (3 - [facility] Test 14:48:42 Booster for Pfizer series) [...] 2022-03-25 SHINGLES VACCINES (1 Met [facility] Test 14:48:42 of 2) [code = SHINGLES VACCINES (1 of 2)] Future Scheduled 2022-03-25 BREAST CANCER [facility] Test 14:48:42 SCREENING [code = BREAST CANCER SCREENING] Future Scheduled 2022-03-25 COLONOSCOPY SCREENING [facility] [facility] Test 14:48:42 [code = COLONOSCOPY SCREENING] Future Scheduled 2022-03-25 HEPATITIS B VACCINES Met [facility] Test 14:48:42 (1 of 3 - Risk 3-dose series) [code = HEPATITIS B VACCINES (1 of 3 - Risk 3-dose series)] Future Scheduled 2022-03-25 COVID-19 VACCINE (3 - [facility] Test 14:48:42 Booster for Pfizer series) [code = COVID-19 VACCINE (3 - Booster for Pfizer series)] Future Scheduled 2022-03-25 65+ PNEUMOCOCCAL [facility] Test 14:48:42 VACCINE (4 - PPSV23 if available, else PCV20) [code = 65+ PNEUMOCOCCAL VACCINE (4 - PPSV23 if available, else PCV20)] Future Scheduled 2022-03-25 INFLUENZA VACCINE Method [facility] Test 14:48:42 [code = INFLUENZA VACCINE] Future Scheduled 2022-03-25 SHINGLES VACCINES (1 Met [facility] Test 14:48:42 of 2) [code = SHINGLES VACCINES (1 of 2)] Future Scheduled 2022-03-25 BREAST CANCER [facility] Test 14:48:42 SCREENING [code = BREAST CANCER SCREENING] Future Scheduled 2022-03-25 COLONOSCOPY SCREENING [facility] Test 14:48:42 [code = COLONOSCOPY SCREENING] Future Scheduled 2022-03-25 HEPATITIS B VACCINES Met [facility] Test 14:48:42 (1 of 3 - Risk 3-dose series) [code = HEPATITIS B VACCINES (1 of 3 - Risk 3-dose series)] Future Scheduled 2022-03-25 COVID-19 VACCINE (3 - Me [facility] Test 14:48:42 Booster for Pfizer series) [code = COVID-19 VACCINE (3 - Booster for Pfizer series)] Future Scheduled 2022-03-25 65+ [facility] Test 14:48:42 VACCINE (4 - PPSV23 if available, else PCV20) [code = 65+ PNEUMOCOCCAL VACCINE (4 - PPSV23 if available, else PCV20)] Future Scheduled 2022-03-25 [facility]ZA VACCINE [facility] Test 14:48:42 [code = INFLUENZA VACCINE] Future Scheduled 2022-03-25 SHINGLES VACCINES (1 Met [facility] Test 14:48:42 of 2) [code = SHINGLES VACCINES (1 of 2)] Future Scheduled 2022-03-25 BREAST CANCER [facility] Test 14:48:42 SCREENING [code = BREAST CANCER SCREENING] Future Scheduled 2022-03-25 COLONOSCOPY SCREENING [facility] Test 14:48:42 [code = COLONOSCOPY SCREENING] Future Scheduled 2022-03-25 HEPATITIS B VACCINES Met [facility] Test 14:48:42 (1 of 3 - Risk 3-dose series) [code = HEPATITIS B VACCINES (1 of 3 - Risk 3-dose series)] Future Scheduled 2022-03-25 COVID-19 VACCINE (3 - Me [facility] Test 14:48:42 Booster for Pfizer series) [code = COVID-19 VACCINE (3 - Booster for Pfizer series)] Future Scheduled 2022-03-25 65+ [facility] Test 14:48:42 VACCINE (4 - PPSV23 if available, else PCV20) [code = 65+ PNEUMOCOCCAL VACCINE (4 - PPSV23 if available, else PCV20)] Future Scheduled 2022-03-25 INFLUENZA VACCINE [facility] Test 14:48:42 [code = INFLUENZA VACCINE] Future Scheduled 2022-03-25 SHINGLES VACCINES (1 Met [facility] Test 14:48:42 of 2) [code = SHINGLES VACCINES (1 of 2)] Future Scheduled 2022-03-25 BREAST CANCER [facility] Test 14:48:42 SCREENING [code = BREAST CANCER SCREENING] Future Scheduled 2022-03-25 COLONOSCOPY SCREENING [facility] Test 14:48:42 [code = COLONOSCOPY SCREENING] Future Scheduled 2022-03-25 HEPATITIS B VACCINES Met [facility] Test 14:48:42 (1 of 3 - Risk 3-dose series) [code = HEPATITIS B VACCINES (1 of 3 - Risk 3-dose series)] Future Scheduled 2022-03-25 COVID-19 VACCINE (3 - Me [facility] Test 14:48:42 Booster for Pfizer series) [code = COVID-19 VACCINE (3 - Booster for Pfizer series)] Future Scheduled 2022-03-25 65+ [facility] Test 14:48:42 VACCINE (4 - PPSV23 if available, else PCV20) [code = 65+ PNEUMOCOCCAL VACCINE (4 - PPSV23 if available, else PCV20)] Future Scheduled 2022-03-25 INFLUENZA VACCINE [facility] Test 14:48:42 [code = INFLUENZA VACCINE] Future Scheduled 2022-03-25 SHINGLES VACCINES (1 Met [facility] Test 14:48:42 of 2) [code = SHINGLES VACCINES (1 of 2)] Future Scheduled 2022-03-25 BREAST CANCER [facility] Test 14:48:42 SCREENING [code = BREAST CANCER SCREENING] Future Scheduled 2022-03-25 COLONOSCOPY SCREENING [facility] Test 14:48:42 [code = COLONOSCOPY SCREENING] Future Scheduled 2022-03-25 HEPATITIS B VACCINES Met [facility] Test 14:48:42 (1 of 3 - Risk 3-dose series) [code = HEPATITIS B VACCINES (1 of 3 - Risk 3-dose series)] Future Scheduled 2022-03-25 COVID-19 VACCINE (3 - [facility] Test 14:48:42 Booster for Pfizer series) [code = COVID-19 VACCINE (3 - Booster for Pfizer series)] Future Scheduled 2022-03-25 65+ [facility] Test 14:48:42 VACCINE (4 - PPSV23 if available, else PCV20) [code = 65+ PNEUMOCOCCAL VACCINE (4 - PPSV23 if available, else PCV20)] Future Scheduled 2022-03-25 INFLUENZA VACCINE [facility] Test 14:48:42 [code = INFLUENZA VACCINE] Future Scheduled 2022-03-25 SHINGLES VACCINES (1 Met [facility] Test 14:48:42 of 2) [code = SHINGLES VACCINES (1 of 2)] Future Scheduled 2022-03-25 BREAST CANCER [facility] Test 14:48:42 SCREENING [code = BREAST CANCER SCREENING] Future Scheduled 2022-03-25 COLONOSCOPY SCREENING Me [facility] Test 14:48:42 [code = COLONOSCOPY SCREENING] Future Scheduled 2022-03-25 HEPATITIS B VACCINES Met [facility] Test 14:48:42 (1 of 3 - Risk 3-dose series) [code = HEPATITIS B VACCINES (1 of 3 - Risk 3-dose series)] Future Scheduled 2022-03-25 COVID-19 VACCINE (3 - Me [facility] Test 14:48:42 Booster for Pfizer series) [...] 2022-03-04 SHINGLES VACCINES (1 Met [facility] Test 14:03:57 of 2) [code = SHINGLES VACCINES (1 of 2)] Future Scheduled 2022-03-04 BREAST CANCER [facility] Test 14:03:57 SCREENING [code = BREAST CANCER SCREENING] Future Scheduled 2022-03-04 COLONOSCOPY SCREENING [facility] Test 14:03:57 [code = COLONOSCOPY SCREENING] Future Scheduled 2022-03-04 HEPATITIS B VACCINES Met [facility] Test 14:03:57 (1 of 3 - Risk 3-dose series) [code = HEPATITIS B VACCINES (1 of 3 - Risk 3-dose series)] Future Scheduled 2022-03-04 COVID-19 VACCINE (3 - [facility] Test 14:03:57 Booster for Pfizer series) [code = COVID-19 VACCINE (3 - Booster for Pfizer series)] Future Scheduled 2022-03-04 65+ [facility] 14:03:57 VACCINE (4 - PPSV23 if available, else PCV20) [code = 65+ PNEUMOCOCCAL VACCINE (4 - PPSV23 if available, else PCV20)] Future Scheduled 2022-03-04 INFLUENZA VACCINE [facility] Test 14:03:57 [code = INFLUENZA VACCINE] Future Scheduled 2022-03-04 SHINGLES VACCINES (1 Met [facility] Test 14:03:57 of 2) [code = SHINGLES VACCINES (1 of 2)] Future Scheduled 2022-03-04 BREAST CANCER [facility] Test 14:03:57 SCREENING [code = BREAST CANCER SCREENING] Future Scheduled 2022-03-04 COLONOSCOPY SCREENING [facility] Test 14:03:57 [code = COLONOSCOPY SCREENING] Future Scheduled 2022-03-04 HEPATITIS B VACCINES Met [facility] Test 14:03:57 (1 of 3 - Risk 3-dose series) [code = HEPATITIS B VACCINES (1 of 3 - Risk 3-dose series)] Future Scheduled 2022-03-04 COVID-19 VACCINE (3 - [facility] Test 14:03:57 Booster for Pfizer series) [code = COVID-19 VACCINE (3 - Booster for Pfizer series)] Future Scheduled 2022-03-04 65+ PNEUMOCOCCAL [facility] Test 14:03:57 VACCINE (4 - PPSV23 if available, else PCV20) [code = 65+ PNEUMOCOCCAL VACCINE (4 - PPSV23 if available, else PCV20)] Future Scheduled 2022-03-04 INFLUENZA VACCINE [facility] Test 14:03:57 [code = INFLUENZA VACCINE] Future Scheduled 2022-03-04 SHINGLES VACCINES (1 Met [facility] Test 14:03:57 of 2) [code = SHINGLES VACCINES (1 of 2)] Future Scheduled 2022-03-04 BREAST CANCER [facility] Test 14:03:57 SCREENING [code = BREAST CANCER SCREENING] Future Scheduled 2022-03-04 COLONOSCOPY SCREENING [facility] Test 14:03:57 [code = COLONOSCOPY SCREENING] Future Scheduled 2022-03-04 HEPATITIS B VACCINES Met [facility] Test 14:03:57 (1 of 3 - Risk 3-dose series) [code = HEPATITIS B VACCINES (1 of 3 - Risk 3-dose series)] Future Scheduled 2022-03-04 COVID-19 VACCINE (3 - [facility] Test 14:03:57 Booster for Pfizer series) [code = COVID-19 VACCINE (3 - Booster for Pfizer series)] Future Scheduled 2022-03-04 65+ [facility] Test 14:03:57 VACCINE (4 - PPSV23 if available, else PCV20) [code = 65+ PNEUMOCOCCAL VACCINE (4 - PPSV23 if available, else PCV20)] Future Scheduled 2022-03-04 INFLUENZA VACCINE [facility] Test 14:03:57 [code = INFLUENZA VACCINE] Future Scheduled 2022-03-04 SHINGLES VACCINES (1 Met [facility] Test 14:03:57 of 2) [code = SHINGLES VACCINES (1 of 2)] Future Scheduled 2022-03-04 BREAST CANCER [facility] Test 14:03:57 SCREENING [code = BREAST CANCER SCREENING] Future Scheduled 2022-03-04 COLONOSCOPY SCREENING [facility] Test 14:03:57 [code = COLONOSCOPY SCREENING] Future Scheduled 2022-03-04 HEPATITIS B VACCINES Met [facility] Test 14:03:57 (1 of 3 - Risk 3-dose series) [code = HEPATITIS B VACCINES (1 of 3 - Risk 3-dose series)] Future Scheduled 2022-03-04 COVID-19 VACCINE (3 - [facility] Test 14:03:57 Booster for Pfizer series) [code = COVID-19 VACCINE (3 - Booster for Pfizer series)] Future Scheduled 2022-03-04 65+ [facility] Test 14:03:57 VACCINE (4 - PPSV23 if available, else PCV20) [code = 65+ PNEUMOCOCCAL VACCINE (4 - PPSV23 if available, else PCV20)] Future Scheduled 2022-03-04 INFLUENZA VACCINE Method [facility] Test 14:03:57 [code = INFLUENZA VACCINE] Future Scheduled 2022-02-11 SHINGLES VACCINES (1 Met [facility] Test 13:39:12 of 2) [code = SHINGLES VACCINES (1 of 2)] Future Scheduled 2022-02-11 BREAST CANCER [facility] Test 13:39:12 SCREENING [code = BREAST CANCER SCREENING] Future Scheduled 2022-02-11 COLONOSCOPY SCREENING [facility] Test 13:39:12 [code = COLONOSCOPY SCREENING] Future Scheduled 2022-02-11 HEPATITIS B VACCINES Met [facility] Test 13:39:12 (1 of 3 - Risk 3-dose series) [code = HEPATITIS B VACCINES (1 of 3 - Risk 3-dose series)] Future Scheduled 2022-02-11 COVID-19 VACCINE (3 - Me [facility] Test 13:39:12 Booster for Pfizer series) [code = COVID-19 VACCINE (3 - Booster for Pfizer series)] Future Scheduled 2022-02-11 65+ PNEUMOCOCCAL [facility] Test 13:39:12 VACCINE (4 - PPSV23 or PCV20) [code = 65+ PNEUMOCOCCAL VACCINE (4 - PPSV23 or PCV20)] Future Scheduled 2022-02-11 INFLUENZA VACCINE Method [facility] Test 13:39:12 [code = INFLUENZA VACCINE] Future Scheduled 2022-01-29 SHINGLES VACCINES (1 Met [facility] Test 14:07:20 of 2) [code = SHINGLES VACCINES (1 of 2)] Future Scheduled 2022-01-29 BREAST CANCER [facility] Test 14:07:20 SCREENING [code = BREAST CANCER SCREENING] Future Scheduled 2022-01-29 COLONOSCOPY SCREENING [facility] Test 14:07:20 [code = COLONOSCOPY SCREENING] Future Scheduled 2022-01-29 HEPATITIS B VACCINES Met [facility] Test 14:07:20 (1 of 3 - Risk 3-dose series) [code = HEPATITIS B VACCINES (1 of 3 - Risk 3-dose series)] Future Scheduled 2022-01-29 COVID-19 VACCINE (3 - [facility] Test 14:07:20 Booster for Pfizer series) [code = COVID-19 VACCINE (3 - Booster for Pfizer series)] Future Scheduled 2022-01-29 65+ PNEUMOCOCCAL [facility] Test 14:07:20 VACCINE (4 - PPSV23 or PCV20) [code = 65+ PNEUMOCOCCAL VACCINE (4 - PPSV23 or PCV20)] Future Scheduled 2022-01-29 INFLUENZA VACCINE Method [facility] Test 14:07:20 [code = INFLUENZA VACCINE] Future Scheduled 2022-01-29 SHINGLES VACCINES (1 Met [facility] Test 14:07:20 of 2) [code = SHINGLES VACCINES (1 of 2)] Future Scheduled 2022-01-29 BREAST CANCER [facility] Test 14:07:20 SCREENING [code = BREAST CANCER SCREENING] Future Scheduled 2022-01-29 COLONOSCOPY SCREENING [facility] Test 14:07:20 [code = COLONOSCOPY SCREENING] Future Scheduled 2022-01-29 HEPATITIS B VACCINES Met [facility] Test 14:07:20 (1 of 3 - Risk 3-dose series) [code = HEPATITIS B VACCINES (1 of 3 - Risk 3-dose series)] Future Scheduled 2022-01-29 COVID-19 VACCINE (3 - Me [facility] Test 14:07:20 Booster for Pfizer series) [code = COVID-19 VACCINE (3 - Booster for Pfizer series)] Future Scheduled 2022-01-29 65+ PNEUMOCOCCAL [facility] Test 14:07:20 VACCINE (4 - PPSV23 or PCV20) [code = 65+ PNEUMOCOCCAL VACCINE (4 - PPSV23 or PCV20)] Future Scheduled 2022-01-29 INFLUENZA VACCINE Method [facility] Test 14:07:20 [code = INFLUENZA VACCINE] Future Scheduled 2022-01-29 SHINGLES VACCINES (1 Met [facility] Test 14:07:20 of 2) [code = SHINGLES VACCINES (1 of 2)] Future Scheduled 2022-01-29 BREAST CANCER [facility] Test 14:07:20 SCREENING [code = BREAST CANCER SCREENING] Future Scheduled 2022-01-29 COLONOSCOPY SCREENING [facility] Test 14:07:20 [code = COLONOSCOPY SCREENING] Future Scheduled 2022-01-29 HEPATITIS B VACCINES Met [facility] Test 14:07:20 (1 of 3 - Risk 3-dose series) [code = HEPATITIS B VACCINES (1 of 3 - Risk 3-dose series)] Future Scheduled 2022-01-29 COVID-19 VACCINE (3 - [facility] Test 14:07:20 Booster for Pfizer series) [code = COVID-19 VACCINE (3 - Booster for Pfizer series)] Future Scheduled 2022-01-29 65+ PNEUMOCOCCAL [facility] Test 14:07:20 VACCINE (4 - PPSV23 or PCV20) [code = 65+ PNEUMOCOCCAL VACCINE (4 - PPSV23 or PCV20)] Future Scheduled 2022-01-29 INFLUENZA VACCINE Method [facility] Test 14:07:20 [code = INFLUENZA VACCINE] Future Scheduled 2022-01-29 SHINGLES VACCINES (1 Met [facility] Test 14:07:20 of 2) [code = SHINGLES VACCINES (1 of 2)] Future Scheduled 2022-01-29 BREAST CANCER [facility] Test 14:07:20 SCREENING [code = BREAST CANCER SCREENING] Future Scheduled 2022-01-29 COLONOSCOPY SCREENING [facility] Test 14:07:20 [code = COLONOSCOPY SCREENING] Future Scheduled 2022-01-29 HEPATITIS B VACCINES Met [facility] Test 14:07:20 (1 of 3 - Risk 3-dose series) [code = HEPATITIS B VACCINES (1 of 3 - Risk 3-dose series)] Future Scheduled 2022-01-29 COVID-19 VACCINE (3 - [facility] Test 14:07:20 Booster for Pfizer series) [code = COVID-19 VACCINE (3 - Booster for Pfizer series)] Future Scheduled 2022-01-29 65+ PNEUMOCOCCAL [facility] Test 14:07:20 VACCINE (4 - PPSV23 or PCV20) [code = 65+ PNEUMOCOCCAL VACCINE (4 - PPSV23 or PCV20)] Future Scheduled 2022-01-29 INFLUENZA VACCINE Method [facility] Test 14:07:20 [code = INFLUENZA VACCINE] Future Scheduled 2022-01-20 SHINGLES VACCINES (1 Met [facility] Test 06:12:34 of 2) [code = SHINGLES VACCINES (1 of 2)] Future Scheduled 2022-01-20 Screening for [facility] Test 06:12:34 malignant neoplasm of cervix (procedure) [code = [id number]] Future Scheduled 2022-01-20 BREAST CANCER [facility] Test 06:12:34 SCREENING [code = BREAST CANCER SCREENING] Future Scheduled 2022-01-20 COLONOSCOPY SCREENING [facility] Test 06:12:34 [code = COLONOSCOPY SCREENING] Future Scheduled 2022-01-20 HEPATITIS B VACCINES Met [facility] Test 06:12:34 (1 of 3 - Risk 3-dose series) [code = HEPATITIS B VACCINES (1 of 3 - Risk 3-dose series)] Future Scheduled 2022-01-20 COVID-19 VACCINE (3 - [facility] Test 06:12:34 Booster for Pfizer series) [code = COVID-19 VACCINE (3 - Booster for Pfizer series)] Future Scheduled 2022-01-20 65+ PNEUMOCOCCAL [facility] Test 06:12:34 VACCINE (4 - PPSV23 or PCV20) [code = 65+ PNEUMOCOCCAL VACCINE (4 - PPSV23 or PCV20)] Future Scheduled 2022-01-20 INFLUENZA VACCINE Method [facility] Test 06:12:34 [code = INFLUENZA VACCINE] Future Scheduled 2022-01-16 SHINGLES VACCINES (1 Met [facility] Test 12:09:25 of 2) [code = SHINGLES VACCINES (1 of 2)] Future Scheduled 2022-01-16 Screening for [facility] Test 12:09:25 malignant neoplasm of cervix (procedure) [code = [id number]] Future Scheduled 2022-01-16 BREAST CANCER [facility] Test 12:09:25 SCREENING [code = BREAST CANCER SCREENING] Future Scheduled 2022-01-16 COLONOSCOPY SCREENING [facility] Test 12:09:25 [code = COLONOSCOPY SCREENING] Future Scheduled 2022-01-16 HEPATITIS B VACCINES Met [facility] Test 12:09:25 (1 of 3 - Risk 3-dose series) [code = HEPATITIS B VACCINES (1 of 3 - Risk 3-dose series)] Future Scheduled 2022-01-16 COVID-19 VACCINE (3 - [facility] Test 12:09:25 Booster for Pfizer series) [code = COVID-19 VACCINE (3 - Booster for Pfizer series)] Future Scheduled 2022-01-16 65+ [facility] Test 12:09:25 VACCINE (4 - PPSV23 or PCV20) [code = 65+ PNEUMOCOCCAL VACCINE (4 - PPSV23 or PCV20)] Future Scheduled 2022-01-16 [facility]ZA VACCINE [facility] Test 12:09:25 [code = INFLUENZA VACCINE] Future Scheduled 2022-01-14 SHINGLES VACCINES (1 Met [facility] Test 04:11:46 of 2) [code = SHINGLES VACCINES (1 of 2)] Future Scheduled 2022-01-14 Screening for [facility] Test 04:11:46 malignant neoplasm of cervix (procedure) [code = [id number]] Future Scheduled 2022-01-14 BREAST CANCER [facility] Test 04:11:46 SCREENING [code = BREAST CANCER SCREENING] Future Scheduled 2022-01-14 COLONOSCOPY SCREENING [facility] Test 04:11:46 [code = COLONOSCOPY SCREENING] Future Scheduled 2022-01-14 HEPATITIS B VACCINES Met [facility] Test 04:11:46 (1 of 3 - Risk 3-dose series) [code = HEPATITIS B VACCINES (1 of 3 - Risk 3-dose series)] Future Scheduled 2022-01-14 COVID-19 VACCINE (3 - [facility] Test 04:11:46 Booster for Pfizer series) [code = COVID-19 VACCINE (3 - Booster for Pfizer series)] Future Scheduled 2022-01-14 65[facility] Test 04:11:46 VACCINE (4 - PPSV23 or PCV20) [code = 65+ PNEUMOCOCCAL VACCINE (4 - PPSV23 or PCV20)] Future Scheduled 2022-01-14 INFLUENZA VACCINE Method [facility] Test 04:11:46 [code = INFLUENZA VACCINE] Future Scheduled 2021-08-26 Screening for [facility] Test 13:02:23 malignant neoplasm of cervix (procedure) [code = [id number]] Future Scheduled 2021-08-26 BREAST CANCER [facility] Test 13:02:23 SCREENING [code = BREAST CANCER SCREENING] Future Scheduled 2021-08-26 COLONOSCOPY SCREENING [facility] Test 13:02:23 [code = COLONOSCOPY SCREENING] Future Scheduled 2021-08-26 Screening for [facility] Test 13:02:23 malignant neoplasm of lung (procedure) [code = [id number]] Future Scheduled 2021-08-26 SHINGLES VACCINES (#1) [facility] Test 13:02:23 [code = SHINGLES VACCINES (#1)] Future Scheduled 2021-08-26 COVID-19 VACCINE (3 - [facility] Test 13:02:23 Pfizer risk 4-dose series) [code = COVID-19 VACCINE (3 - Pfizer risk 4-dose series)] Future Scheduled 2021-08-26 65+ PNEUMOCOCCAL [facility] Test 13:02:23 VACCINE (4 of 4 - PPSV23) [code = 65+ PNEUMOCOCCAL VACCINE (4 of 4 - PPSV23)] Future Scheduled 2021-08-26 INFLUENZA VACCINE [facility] Test 13:02:23 [code = INFLUENZA VACCINE] Encounters Start End Encounter Admission Attending Care Care Encounter Source Date/Time Date/Time Type Type Clinicians Facility Department ID 2022-02-18 Outpatient [facility] W [id number] [place] 14:30:[address] [place] [address] 2021-07-14 Outpatient SADIKOVIC, [facility] [id number] [place] 09:33:51 [facility] 2021-06-02 Outpatient HEMATPOUR, [facility] [id number] [place] 13:58:59 [facility] 2021-04-28 Outpatient HEMATPOUR, [facility] [id number] [place] 11:21:22 [facility] 2021-03-20 Emergency [facility] [id number] Univers 16:07:40 [facility] 2020-12-12 Outpatient HEMATPOUR, [facility] [id number] [place] 08:16:46 [facility] 2020-10-31 Outpatient HEMATPOUR, [facility] [id number] [place] 09:44:50 [facility] 2020-09-30 Outpatient HEMATPOUR, [facility] [id number] [place] 13:16:03 [facility] [facility] 2023-02-07 2023-02-07 Outpatient R RONALD, [facility] [id number] Univers 09:00:00 09:00:00 SANTIAGO charlie [facility] 2023-01-27 2023-01-27 Emergency X SANKET Bill [facility] ERT [id number] Univers 10:47:00 18:59:00 ity [facility] 2023-01-27 2023-01-27 Emergency Bill Coles [facility] [id number] Univers 10:47:00 18:59:00 [facility] [place] [id number] [id number] [id number] [address] 2023-01-17 2023-01-17 [facility] [id number] Univers 00:00:00 00:00:00 [facility] [id number] i ty of [facility] [id number] [id number] [address] 2022-11-26 2022-11-26 Outpatient R [facility] [id number] Univers 08:30:00 08:30:00 ity [facility] 2022-11-15 2022-11-15 Outpatient R [facility] [id number] Univers 08:30:00 08:30:00 ity [facility] 2022-11-02 2022-11-02 [facility] [id number] Univers 08:30:00 08:30:00 SANT[place]O [facility] 2022-10-27 2022-10-27 Telephone [facility], UNIVERSIT 1.2.840.114 10 [id number] Univers 00:00:00 00:00:00 [facility] 350.1.13.10 i ty [place] [id number] [address] 2022-10-06 2022-10-06 Outpatient R [facility] [id number] Univers 09:30:00 09:30:00 S[place]O charlie [facility] 2022-09-26 2022-09-26 [facility] 1.2.708.546 [id number] Univers 00:00:00 00:00:00 [facility] 350.1.13.10 i ty [place] [id number] [address] 2022-09-03 2022-09-03 Outpatient R [facility] [id number] Univers 11:00:00 11:00:00 [place]O [facility] 2022-08-24 2022-08-24 Refill [facility], 1.2.840.3 [id number] Univers 00:00:00 00:00:00 Santiago 94420.1.1 ity of 3.104.2.7 [place] .3.171975 Medica l .8 [place] 2022-05-20 2022-05-20 [facility] 1.2.840.114 99 [id number] Univers 00:00:00 00:00:00 [facility] 350.1.13.10 i ty [place] 443.2475813 [address] 2022-05-10 2022-05-10 Emergency X BYRON, [facility] ERT [id number] Univers 10:30:00 16:31:00 HOME [facility] 2022-05-10 2022-05-10 Emergency Byron, TRAUMA 1.2.840.114 99 [id number] Univers 10:30:00 16:31:00 Home B CENTER 350.1.13.10 [place] 632.5755274 [facility] 014 [place] 2022-05-10 2022-05-10 Telephone [facility], [facility] 1.2.840.114 99 [id number] Univers 00:00:00 00:00:00 [facility] HEALTH 350.1.13.10 i ty [place] [id number] [address] 2022-05-08 2022-05-08 Emergency X [facility] ERT [id number] Univers 16:18:00 18:42:00 THERESA barbosa [facility] 2022-05-08 2022-05-08 [facility] 1.2.840.114 99 [id number] Univers 16:18:00 18:42:00 Theresa BULLOCK 350.1.13.10 ity of [place] 064.8752872 [address] 2022-05-07 2022-05-07 Telephone [facility] 1.2.840.114 99 [id number] Univers 00:00:00 00:00:00 [facility] 350.1.13.10 i ty [place] 360.4504515 [address] 2022-05-06 2022-05-06 Emergency X [facility] ERT [id number] Univers 14:13:00 18:19:00 ANETTE barbosa [facility] 2022-05-06 2022-05-06 [facility] 1.2.636.980 [id number] Univers 14:13:00 18:19:00 Anette BULLOCK 350.1.13.10 ity [place] [id number] [address] 2022-05-06 2022-05-06 Telephone [facility] 1.2.840.114 99 [id number] Univers 00:00:00 00:00:00 [facility] HEALTH 350.1.13.10 i ty [place] [id number] [address] 2022-04-22 2022-04-22 Emergency [facility] [id number] Univers 13:55:00 17:00:00 PAULETTE [facility] 2022-04-22 2022-04-22 Emergency [facility] 1.2.465.338 [id number] [id number] Univers 13:55:00 17:00:00 Paulette S [place] 350.1.13.10 i ty of [place] 4.2.7.2.[place] 869.8720951 [place] 446334 [place] 2022-04-07 2022-04-07 Outpatient R [facility] [id number] Univers 20:40:00 20:40:00 ATTENDING itcharlie [facility] 2022-04-07 2022-04-07 Telephone Devin, 1.2.840.2 [id number] [id number] Univers 00:00:00 00:00:00 Robbi R 54890.1.1 i ty of 3.104.2.7 [place] .3.465178 Medica l .8 [place] 2022-03-05 2022-03-05 [employer] Supervisor Ronald Santiago 1.2.840.1 [id number] Univers 13:45:00 14:00:00 Visit [facility] 17365.1.1 ity of 3.104.2.7 [place] .3.167690 Medica l .8 [place] 2022-03-05 2022-03-05 Office Ronald JOSÉ ANTONIO 1.2.240.458 [id number] [id number] Univers 13:00:00 13:30:00 Visit [facility] 350.1.13.10 i ty of [facility] 4.2.7.2.686 [facility] [id number] [place] 446339 [place] 2022-03-05 2022-03-05 Outpatient R [facility] [id number] Univers 13:00:00 13:00:00 SANTIAGO [facility] 2022-02-26 2022-02-26 Outpatient R [facility] [id number] Univers 08:30:00 08:30:00 SANTIAGO [facility] 2022-02-26 2022-02-26 Outpatient R [facility] [id number] Univers 08:30:00 08:30:00 SANTIAGO ity of [facility] 2022-02-17 2022-02-17 Transition Stevo, 1.2.840.6 [id number] Univers 00:00:00 00:00:00 of Care Isaias Arredondo 70429.1.1 it y of 3.104.2.7 [place] .3.789279 Medica l .8 [place] 2022-02-10 2022-02-16 Inpatient X [facility] [id number] Univers 22:59:00 19:27:00 PETER ity of [facility] 2022-02-10 2022-02-16 Hospital Reilly Means 1.2.840.1 [id number] Univers 22:59:00 19:27:00 Encounter Ofe Shields 21858.1.1 ity of [place] 3.104.2.7 [place] .3.345847 Medica l .8 [place] 2022-02-11 2022-02-11 Telephone [facility], 1.2.840.2 [id number] [id number] Univers 00:00:00 00:00:00 Santiago 51741.1.1 ity of 3.104.2.7 [place] .3.409278 Medica l .8 Branch 2022-02-10 2022-02-10 Travel 1.2.840.1 1.2.413.671 7264 [id number] Univers 00:00:00 00:00:00 92222.1.1 350.1.13.10 ity of 3.104.2.7 4.2.7.3.698 [place] .3.341244 084.8 Medica l .8 Branch 2022-01-30 2022-01-30 Telephone [place], 1.2.840.5 [id number] [id number] Univers 00:00:00 00:00:00 Santiago 26374.1.1 ity of 3.104.2.7 [place] .3.914116 Medica l .8 Branch 2022-01-06 2022-01-06 Orders Doctor FERMIN 1.2.840.114 [id number] Univers 00:00:00 00:00:00 Only Unassigned, JACKELINE 350.1.13.10 ity of [place] [facility] 4.2.7.2.686 Yomi as [id number] [facility] 009 Branch 2021-12-25 2021-12-25 Orders Doctor FERMIN 1.2.840.114 [id number] Univers 00:00:00 00:00:00 Only Unassigned, JACKELINE 350.1.13.10 ity of [place] [facility] 4.2.7.2.686 Yomi as 922.8501602 [facility] 009 Branch 2021-12-12 2021-12-13 Emergency X SANKET Bill [facility] ERT [id number] Univers 23:53:00 01:52:00 ity [facility] 2021-12-12 2021-12-13 Emergency Bill Coles [facility] 1.2.840.114 [id number] Univers 23:53:00 01:52:00 Kiersten BULLOCK 350.1.13.10 i ty of [place]2.7.2.[place] [id number] [facility] 084 Branch 2021-11-20 2021-11-20 [employer] Supervisor [facility] UNIVERSIT 1.2.840.114 9 [id number] Univers 09:45:00 10:00:00 Visit [facility] 350.1.13.10 ity of [facility] 4.2.7.2.[place] 694.5781960 [facility] 316 Branch 2021-11-20 2021-11-20 Office [facility] 1.2.713.606 [id number] 9084 Univers 08:30:00 09:00:00 Visit [facility] 350.1.13.10 i ty of [facility] 4.2.7.2.[place] [id number] [facility] 089 Branch 2021-11-20 2021-11-20 Outpatient [facility] [id number] Univers 08:30:00 08:30:00 [facility] 2021-11-20 2021-11-20 Outpatient R [facility] [id number] Univers 08:30:00 08:30:00 [facility] Branch 2021-11-20 2021-11-20 Outpatient R RONALD, [facility] [id number] Univers 08:30:00 08:30:00 SANTIAGO barbosa [facility] 2021-11-20 2021-11-20 Outpatient R EAST, [facility] [id number] Univers 08:30:00 08:30:00 SANTIAGO charlie [facility] 2021-10-24 2021-10-24 Emergency X ESVIN [facility] ERT [id number] Univers 16:27:00 22:26:00 CHARITY barbosa [facility] 2021-10-24 2021-10-24 Emergency X ESVIN [facility] ERT [id number] Univers 16:27:00 22:26:00 CHARITY barbosa [facility] 2021-10-24 2021-10-24 Emergency Miguelangel Reilly [facility] 1.2.840. 114 [id number] Univers 16:27:00 22:26:00 Charity Mcallister [place] 350.1.13.10 ity [facility] 4.2.7.2.686 [facility] [id number] [address] 2021-10-23 2021-10-24 Emergency X ESVIN [facility] ERT [id number] Univers 20:22:00 02:57:00 CHARITY charlie [facility] 2021-10-23 2021-10-24 Emergency [facility] 1.2.720.039 [id number] Univers 20:22:00 02:57:00 Charity [facility] 350.1.13.10 [facility] 4.2.7.2.686 [facility] [id number] [address] 2021-09-07 2021-09-07 Outpatient R SELF, [facility] [id number] Univers 08:00:00 08:00:00 GADIEL familia lela rodas [facility] 2021-09-07 2021-09-07 Outpatient R SELF, [facility] [id number] Univers 08:00:00 08:00:00 GADIEL vogel clark [facility] 2021-08-21 2021-08-21 Outpatient R EAST, [facility] [id number] Univers 10:45:00 10:45:00 SANTIAGO barbosa [facility] 2021-08-21 2021-08-21 [employer] Supervisor [place] Cardenas 1.2.840.1 [id number] Univers 10:45:00 10:45:00 Visit [facility] 30614.1.1 ity of 3.104.2.7 [place] .3.713867 Medica l .8 [place] 2021-08-21 2021-08-21 Office [place], 1.2.840.2 [id number] Univers 08:30:00 09:00:00 Visit Santiago 41689.1.1 ity of 3.104.2.7 [place] .3.490420 Medica l .8 [place] 2021-08-21 2021-08-21 Office [facility], UNIVERSIT 1.2.650.148 3554 [id number] Univers 08:30:00 09:00:00 Visit Santiago [facility] 350.1.13.10 i ty of [place] 4.[place] 648.0090357 Medi porfirio 089 [place] 2021-08-21 2021-08-21 Outpatient R [facility] [id number] Univers 08:30:00 08:30:00 SANTIAGO barbosa [facility] 2021-08-21 2021-08-21 Travel 1.2.840.1 1.2.558.099 [id number] Univers 00:00:00 00:00:00 31743.1.1 350.1.13.10 ity of 3.104.2.7 4.2.7.3.698 [place] .3.482523 084.8 Medica l .8 [place] 2021-08-14 2021-08-14 Telephone [place], 1.2.840.9 [id number] Univers 00:00:00 00:00:00 Santiago 77729.1.1 ity of 3.104.2.7 [place] .3.685091 Medica l .8 [place] 2021-08-13 2021-08-13 Telephone [place], 1.2.840.9 [id number] Univers 00:00:00 00:00:00 Santiago 39022.1.1 [facility] 3.104.2.7 [facility].902255 [facility] 2021-08-11 2021-08-11 Outpatient [facility] [id number] Univers 08:00:00 08:00:00 [facility] 2021-08-05 2021-08-05 Inpatient EDUARDO LealCL OUTD [id number] [facility] 05:24:00 05:24:00 Mike 31 [facility] 2021-07-20 2021-07-20 Outpatient [facility] [id number] [facility] 10:00:00 10:00:00 [facility] 2021-07-14 2021-07-14 Office Pankaj, UTP 6400 1.2.840.114 13 [id number] [place] 08:45:00 09:34:[address] 350.1.13.58 Health 9.2.7.2.686 [id number] 1 2021-07-09 2021-07-09 Telephone [facility], UTP 6400 1.2.840.114 [id number] [place] 00:00:00 00:00:[address] 350.1.13.58 Health 9.2.7.2.686 [id number] 1 2021-07-09 2021-07-09 Telephone [facility], UTP 6400 1.2.840.114 [id number] [place] 00:00:00 00:00:[address] 350.1.13.58 Health 9.2.7.2.686 [id number] 1 2021-07-03 2021-07-03 Outpatient [facility] [id number] Univers 08:00:00 08:00:00 [facility] 2021-06-17 2021-06-17 Inpatient EDUARDO LealLA INTE.02 [id number] [facility] 10:56:00 14:36:00 Mike 47 [facility] 2021-06-15 2021-06-15 Outpatient R SELF, [facility] [id number] Univers 10:15:00 11:07:21 GADIEL rodas [facility] 2021-06-15 2021-06-15 Outpatient R SELF, [facility] [id number] Univers 10:15:00 10:15:00 GADIEL rodas [facility] 2021-06-15 2021-06-15 Outpatient R SELF, [facility] [id number] Univers 10:15:00 10:15:00 GADIEL rodas [facility] 2021-06-15 2021-06-15 Orders Doctor 1.2.840.4 [id number] Univers 00:00:00 00:00:00 Only Unassigned, 11841.1.1 ity of [place] 3.104.2.7 [place] .3.585992 Medica l .8 [place] 2021-06-15 2021-06-15 Travel 1.2.840.1 1.2.495.960 1558 [id number] Univers 00:00:00 00:00:00 33032.1.1 350.1.13.10 ity of 3.104.2.7 4.2.7.3.698 [place] .3.798885 084.8 Medica l .8 Branch 2021-06-11 2021-06-11 Refill [place], UNIVERSIT 1.2.566.516 [id number] 9185 Univers 00:00:00 00:00:00 [facility] 350.1.13.10 i ty of [place] 4[place] 664.1035061 Medi porfirio 089 Branch 2021-06-11 2021-06-11 Refill [place], 1.2.840.7 [id number] Univers 00:00:00 00:00:00 Santiago 30165.1.1 ity of 3.104.2.7 [place] .3.845160 Medica l .8 Branch 2021-06-05 2021-06-05 Outpatient R EAST, [facility] [id number] Univers 09:00:00 09:00:00 SANTIAGO barbosa of [facility] 2021-06-02 2021-06-02 Telephone [place], UNIVERSIT 1.2.840.114 [id number] Univers 00:00:00 00:00:00 Santiago [facility] 350.1.13.10 i ty of CLINICS 4.2.7.2.686 Richi bach [id number] [facility] 089 [place] 2021-06-02 2021-06-02 Telephone East, 1.2.840.4 [id number] Univers 00:00:00 00:00:00 Santiago 54655.1.1 ity of 3.104.2.7 [place] .3.565800 Medica l .8 [place] 2021-05-29 2021-05-29 Telephone East, 1.2.840.7 [id number] [id number] Univers 00:00:00 00:00:00 Santiago 38364.1.1 ity of 3.104.2.7 [place] .3.062143 Medica l .8 [place] 2021-05-29 2021-05-29 Telephone East, 1.2.840.9 [id number] [id number] Univers 00:00:00 00:00:00 Santiago 48594.1.1 ity of 3.104.2.7 [place] .3.141292 Medica l .8 [place] 2021-05-25 2021-05-25 Outpatient R RODO, [facility] [id number] Univers 08:00:00 08:00:00 GADIEL vogel f [facility] 2021-04-29 2021-04-29 Outpatient R LALA, [facility] [id number] Univers 08:00:00 08:00:00 NIKOLAI barbosa [facility] 2021-04-28 2021-04-28 Telephone Chirichelle, 1.2.840.1 [id number] Methodi 00:00:00 00:00:[address] 3.430.2.7 Hospit a .3.160997 l .8 2021-04-28 2021-04-28 Telephone [place], [facility] 6400 1.2.840.114 [id number] [place] 00:00:00 00:00:[address] 350.1.13.58 Health 9.2.7.2.686 [id number] 1 2021-03-31 2021-03-31 Orders Carol Ann, 1.2.840.1 [id number] Methodi 00:00:00 00:00:00 Only Sarai CorbinChelsie 22041.1.1 979 s t 3.430.2.7 Hospit a .3.706688 l .8 2021-03-30 2021-03-30 Outpatient R RODO, [facility] [id number] Univers 08:45:00 08:45:00 GADIEL rodas [facility] 2021-03-24 2021-03-24 Telephone Jailyn, 1.2.840.6 [id number] Methodi 00:00:00 00:00:[address] 3.430.2.7 Hospit a .3.063199 l .8 2021-02-13 2021-02-13 Telephone Ronald, 1.2.840.4 [id number] [id number] [facility] 00:00:00 00:00:00 Santiago 40821.1.1 ity of 3.104.2.7 [facility]3.393484 Medica l .8 [place] 2021-01-28 2021-01-28 [facility] [id number] Univers 08:45:00 09:37:00 NIKOLAI barbosa [facility] 2021-01-28 2021-01-28 Travel 1.2.840.1 1.2.284.859 [id number] [id number] Univers 00:00:00 00:00:00 01018.1.1 350.1.13.10 ity of 3.104.2.7 4.2.7.3.698 [place] .3.875379 084.8 Medica l .8 [place] 2021-01-19 2021-01-19 Telephone Prabhu, 1.2.840.1 [id number] [id number] Methodi 00:00:00 00:00:[address] 3.430.2.7 Hospit a .3.503202 l .8 2021-01-04 2021-01-04 Dmitry Bass, 1.2.840.9 [id number] 696 Univers 00:00:00 00:00:00 (Out) Dagoberto H 16346.1.1 ity of 3.104.2.7 [place] .3.071556 Medica l .8 Branch 2021-01-04 2021-01-04 Dmitry Bass, 1.2.840.3 [id number] 75138 696 Univers 00:00:00 00:00:00 (Out) Dagoberto H 91212.1.1 ity of 3.104.2.7 [place] .3.909961 Medica l .8 Branch 2021-01-03 2021-01-03 Dmitry Bass, 1.2.840.4 [id number] 790 Univers 00:00:00 00:00:00 (Out) Dagoberto H 39111.1.1 ity of 3.104.2.7 [place] .3.232723 Medica l .8 [place] 2021-01-03 2021-01-03 Dmitry Bass, 1.2.840.1 [id number] 790 Univers 00:00:00 00:00:00 (Out) Dagoberto H 99292.1.1 ity of 3.104.2.7 [place] .3.732009 Medica l .8 [place] 2021-01-02 2021-01-02 Outpatient R [facility] [id number] Univers 13:40:00 13:40:00 ity of [facility] 2021-01-02 2021-01-02 Laboratory Cuba Franks 1.2.840.1 [id number] [id number] Univers 12:14:13 12:57:34 Only Lab, [place] 55176.1.1 ity of 3.104.2.7 [place] .3.821728 Medica l .8 Branch 2021-01-02 2021-01-02 Laboratory [place] Franks 1.2.840.6 [id number] [id number] Univers 12:14:13 12:57:34 Only Lab, Adc Fam [place]ob I 74117.1.1 ity of 3.104.2.7 [place] .3.189939 Medica l .8 Branch 2021-01-02 2021-01-02 Travel 1.2.840.1 1.2.915.318 8086 2306 Univers 00:00:00 00:00:00 61714.1.1 350.1.13.10 ity of 3.104.2.7 4.2.7.3.698 [place] .3.982876 084.8 Medica l .8 Branch 2021-01-02 2021-01-02 Letter Doctor 1.2.840.1 [id number] 948 Univers 00:00:00 00:00:00 (Out) Unassigned, 27611.1.1 ity of [place] 3.104.2.7 [place] .3.324035 Medica l .8 Branch 2021-01-02 2021-01-02 Letter Doctor 1.2.840.7 [id number] 946 Univers 00:00:00 00:00:00 (Out) Unassigned, 86143.1.1 ity of [place] 3.104.2.7 [place] .3.670755 Medica l .8 Branch 2021-01-02 2021-01-02 Travel 1.2.840.1 1.2.709.669 9739 2306 Univers 00:00:00 00:00:00 15263.1.1 350.1.13.10 ity of 3.104.2.7 4.2.7.3.698 [place] .3.262157 084.8 Medica l .8 Branch 2021-01-02 2021-01-02 Letter Doctor 1.2.840.0 [id number] 948 Univers 00:00:00 00:00:00 (Out) Unassigned, 12037.1.1 ity of [place] 3.104.2.7 [place] .3.144643 Medica l .8 Branch 2021-01-02 2021-01-02 Letter Doctor 1.2.840.4 [id number] 946 Univers 00:00:00 00:00:00 (Out) Unassigned, 66234.1.1 ity of [place] 3.104.2.7 [place] .3.366320 Medica l .8 Branch 2020-12-22 2020-12-22 Telephone Beltran, 1.2.840.1 [id number] 862 37346 Univers 00:00:00 00:00:00 Devina R 14139.1.1 i ty of 3.104.2.7 [place] .3.541872 Medica l .8 Branch 2020-12-22 2020-12-22 Telephone Beltran, 1.2.840.0 [id number] 862 83260 Univers 00:00:00 00:00:00 Devina R 28242.1.1 i ty of 3.104.2.7 [place] .3.815884 Medica l .8 [place] 2020-12-12 2020-12-12 Office [facility], UTP 6400 1.2.840.114 12 [id number] [place] 07:42:02 08:18:[address] 350.1.13.58 Health 9.2.7.2.686 [id number] 1 2020-12-12 2020-12-12 Office [place], [facility]TP 6400 1.2.840.114 12 [id number] 07:42:02 08:18:[address] 350.1.13.58 9.2.7.2.686 [id number] 1 2020-12-09 2020-12-09 Telephone [facility] 1.2.840.1 [id number] Methodi 00:00:00 00:00:00 Sarai M. 52149.1.1 316 s t 3.430.2.7 Hospit a .3.770293 l .8 2020-12-08 2020-12-08 [facility], 1.2.840.1 [id number] 2100 [id number] Methodi 12:35:54 23:59:00 Encounter Ray 02961.1.[address] 3.430.2.7 Hospit a .3.560108 l .8 2020-12-08 2020-12-08 Lab Jailyn, 1.2.840.1 [id number] 72317 29187 Methodi 17:25:00 17:30:[address] 3.430.2.7 Hospit a .3.121877 l .8 2020-12-08 2020-12-08 Office Jailyn, 1.2.840.1 [id number] 46567 95675 Methodi 10:30:00 11:39:56 Visit Ray [address]9799.1.[address] 3.430.2.7 Hospit a .3.547860 l .8 2020-12-08 2020-12-08 Travel 1.2.840.1 1.2.632.399 3592 535104 Methodi 00:00:00 00:00:[address] 3.430.2.7 0.2.7.3.698 Ho spita .3.203511 084.8 l .8 2020-12-02 2020-12-02 [employer] Supervisor [facility] UNIVERSIT 1.2.840.114 8 [id number] 10:20:06 10:36:19 Visit [facility] 350.1.13.10 [facility] 4.2.7.2.686 [id number] 316 2020-12-02 2020-12-02 [employer] Supervisor Santiago Cardenas 1.2.840.1 [id number] [facility] 10:20:06 10:36:19 Visit [facility] 58257.1.1 ity of 3.104.2.7 [place] .3.936519 Medica l .8 [place] 2020-12-02 2020-12-02 [employer] Supervisor Santiago Cardenas 1.2.840.1 [id number] [facility] 10:20:06 10:36:19 Visit [facility] 60130.1.1 ity of 3.104.2.7 [place] .3.329510 Medica l .8 [place] 2020-12-02 2020-12-02 Office Qi Cardenas2.840.8 [id number] 528 Univers 08:31:37 09:01:37 Visit Santiago 28767.1.1 ity of 3.104.2.7 [place] .3.748218 Medica l .8 [place] 2020-12-02 2020-12-02 Outpatient R [facility] [id number] Univers 09:00:00 09:00:00 [facility] 2020-11-25 Office [facility] 1.2.840.114 [id number] 11:06:30 11:58:14 Visit Robbi Hairston 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 NETWORK 350.1.13.10 REGIONAL 4.2.7.2.686 MATERNAL [id number] & [address] 2020-11-25 2020-11-25 Office Devin, 1.2.840.9 [id number] Univers 11:06:30 11:58:14 Visit Robbi Hairston 33665.1.1 i ty of 3.104.2.7 [place] .3.496067 Medica l .8 [place] 2020-11-25 2020-11-25 Office Devin, 1.2.840.5 [id number] 865 Univers 11:06:30 11:58:14 Visit Robbi Hairston 38218.1.1 i ty of 3.104.2.7 [place] .3.102649 Medica l .8 [place] 2020-11-25 2020-11-25 Outpatient R [facility] [id number] Univers 11:00:00 11:00:00 ity [facility] 2020-11-25 2020-11-25 [facility]ill [facility] 1.2.337.815 [id number] 00:00:00 00:00:00 [facility] 350.1.13.10 [facility] 4.2.7.2.686 [id number] 2020-11-25 2020-11-25 Telephone [facility] 1.2.212.623 [id number] 00:00:00 00:00:00 Robbi Hairston 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 NETWORK 350.1.13.10 REGIONAL 4.2.7.2.686 MATERNAL [id number] & CHILD [address] [place] [address] 2020-11-25 2020-11-25 Telephone Devin, 1.2.840.9 [id number] [id number] Univers 00:00:00 00:00:00 Robbi Hairston 07276.1.1 i ty of 3.104.2.7 [place] .3.588812 Medica l .8 [place] 2020-11-25 2020-11-25 Refill [place], 1.2.840.3 [id number] 592 Univers 00:00:00 00:00:00 Santiago 80528.1.1 ity of 3.104.2.7 [place] .3.942515 Medica l .8 [place] 2020-11-25 2020-11-25 Travel 1.2.840.1 1.2.999.526 5427 0247 Univers 00:00:00 00:00:00 84241.1.1 350.1.13.10 ity of 3.104.2.7 4[place]7.3.698 [place] .3.367437 084.8 Medica l .8 [place] 2020-11-25 2020-11-25 Orders Doctor 1.2.840.0 [id number] Univers 00:00:00 00:00:00 Only Unassigned, 97368.1.1 ity of [place] 3.104.2.7 [place] .3.626154 Medica l .8 [place] 2020-11-25 2020-11-25 Telephone Devin, 1.2.840.1 [id number] [id number] Univers 00:00:00 00:00:00 Robbi R 08922.1.1 i ty of 3.104.2.7 [place] .3.400400 Medica l .8 [place] 2020-11-25 2020-11-25 Refill [facility], 1.2.840.2 [id number] 592 Univers 00:00:00 00:00:00 Santiago 57896.1.1 ity of 3.104.2.7 [place] .3.799270 Medica l .8 [place] 2020-11-25 2020-11-25 Travel 1.2.840.1 1.2.211.695 1073 0247 Univers 00:00:00 00:00:00 27430.1.1 350.1.13.10 ity of 3.104.2.7 4.[place]7.3.698 [place] .3.746468 084.8 Medica l .8 [place] 2020-11-25 2020-11-25 Orders Doctor 1.2.840.7 [id number] 064 Univers 00:00:00 00:00:00 Only Unassigned, 92077.1.1 ity of [place] 3.104.2.7 [place] .3.495570 Medica l .8 [place] 2020-11-14 2020-11-14 Abstract Rodas, 1.2.840.1 [id number] Methodi 00:00:00 00:00:[address] 3.430.2.7 Hospit a .3.147399 l .8 2020-11-14 2020-11-14 Telephone Rodas, 1.2.840.1 [id number] [id number] Methodi 00:00:00 00:00:[address] 3.430.2.7 Hospit a .3.257179 l .8 2020-11-12 2020-11-12 Outpatient [facility] [id number] Univers 08:30:00 08:30:00 SANTIAGO barbosa of [place] [facility] 2020-11-07 2020-11-07 Telephone Agustina Ortiz 6400 1.2.840.11 4 [id number] [place] 00:00:00 00:00:[address] 350.1.13.58 Health 9.2.7.2.686 [id number] 1 2020-11-07 2020-11-07 Telephone DianaKIMBERLEY wilkinson 6400 1.2.840.114 124 [id number] 00:00:00 00:00:[address] 350.1.13.58 9.2.7.2.686 [id number] 1 2020-10-31 2020-10-31 Office Hematporay UTP 6400 1.2.840.114 12 [id number] [place] 07:54:00 09:45:[address] 350.1.13.58 Health 9.2.7.2.686 [id number] 1 2020-10-30 2020-10-30 Abstract Rody Maguire UTP 6400 1.2.840.1 14 [id number] [place] 00:00:00 00:00:[address] 350.1.13.58 Health 9.2.7.2.686 [id number] 1 2020-10-29 2020-10-29 Refill East, 1.2.840.8 [id number] Univers 00:00:00 00:00:00 Santiago 58381.1.1 ity of 3.104.2.7 [place] .3.320517 Medica l .8 Branch 2020-10-29 2020-10-29 Refill East, 1.2.840.5 [id number] 400 Univers 00:00:00 00:00:00 Santiago 62587.1.1 ity of 3.104.2.7 [place] .3.907399 Medica l .8 Branch 2020-10-27 2020-10-27 Telephone Jailyn, 1.2.840.1 [id number] 21 [id number] Methodi 00:00:00 00:00:[address] 3.430.2.7 Hospit a .3.265105 l .8 2020-10-24 2020-10-24 Telephone Rodas, 1.2.840.1 [id number] 2100 [id number] Methodi 00:00:00 00:00:[address] 3.430.2.7 Hospit a .3.358124 l .8 2020-10-22 2020-10-22 Outpatient R SELF, [facility] [id number] [facility] 13:00:00 13:00:00 GADIEL rodas [facility] 2020-10-22 2020-10-22 Travel 1.2.840.1 1.2.863.250 9399 3839 Univers 00:00:00 00:00:00 98471.1.1 350.1.13.10 ity of 3.104.2.7 4.[place].7.3.698 [place] .3.[place]80[place] 084.8 Medica l .8 [place] 2020-10-22 2020-10-22 Travel 1.2.840.1 1.2.384.657 8297 3839 Univers 00:00:00 00:00:00 02868.1.1 350.1.13.10 ity of 3.104.2.7 4[place].7.3.698 [place] .3.9959[place] 084.8 Medica l .8 [place] 2020-10-13 2020-10-13 Outpatient R RODO, [facility] [id number] Univers 08:45:00 08:45:00 GADIEL rodas [facility] 2020-10-06 2020-10-12 Telemedici Chihara, 1.2.840.1 [id number] 21 [id number] Methodi 15:30:00 00:08:46 ne Ray [address]55.1.[address] 3.430.2.7 Hospit a .3.118409 l .8 2020-09-30 2020-09-30 Telephone Chihara, 1.2.840.2 [id number] 21 [id number] Methodi 00:00:00 00:00:[address] 3.430.2.7 Hospit a .3.814518 l .8 2020-09-21 2020-09-21 Travel 1.2.840.1 1.2.179.856 6422 [id number] Methodi 00:00:00 00:00:[address] 3.430.2.7 0.2.7.3.698 Ho spita .3.125195 084.8 l .8 2020-09-06 2020-09-06 [facility] 1.2.840.1 [id number] Methodi 17:42:30 23:59:[address] 3.430.2.7 Hospit a .3.187260 l .8 2020-09-06 2020-09-06 [facility], 1.2.840.1 [id number] 2099 [id number] Methodi 16:50:00 17:41:00 Encounter Ray [address]101.1.[address] 3.430.2.7 Hospit a .3.691306 l .8 2020-09-05 2020-09-05 [facility], 1.2.840.1 [id number] 2099 [id number] Methodi 09:17:00 19:45:00 Encounter Ray [address]356.1.[address] 3.430.2.7 Hospit a .3.153999 l .8 2020-09-05 2020-09-05 [facility], 1.2.840.1 [id number] 68055 Methodi 11:30:00 13:15:[address] 3.430.2.7 Hospit a .3.312263 l .8 2020-09-05 2020-09-05 Anesthesia [facility], 1.2.840.1 [id number] [id number] Methodi 11:27:00 12:20:00 Event Anupamwathi 04359.1.1 243 s t V. 3.430.2.7 Hospit a .3.931366 l .8 2020-09-05 2020-09-05 Travel 1.2.840.1 1.2.251.042 7434 043029 Methodi 00:00:00 00:00:[address] 3.430.2.7 0.2.7.3.698 Ho spita .3.448808 084.8 l .8 2020-09-04 2020-09-04 Telephone Carol Ann, 1.2.840.1 [id number] Methodi 00:00:00 00:00:00 Sarai Lieberman 61391.1.1 762 s t 3.430.2.7 Hospit a .3.227991 l .8 2020-09-02 2020-09-02 Telephone Carol Ann, 1.2.840.5 [id number] Methodi 00:00:00 00:00:00 Sarai Lieberman 47297.1.1 344 s t 3.430.2.7 Hospit a .3.059321 l .8 2020-08-29 2020-08-30 Bedded [facility] [id number] Memoria 10:20:00 14:10:00 Outpatient r [place] 00 l [facility] 2020-08-29 2020-08-30 Outpatient [place], [facility] CAR [facility] 05:20:00 09:10:00 BEVERLY 2020-08-06 2020-08-06 Office East, 1.2.840.0 [id number] Univers 08:03:23 09:17:49 Visit Santiago 23227.1.1 ity of 3.104.2.7 [place] .3.401789 Medica l .8 [place] 2020-08-06 2020-08-06 Outpatient R EAST, [facility] [id number] Univers 08:30:00 08:30:00 SANTIAGO ity of [facility] 2020-07-14 2020-07-14 Outpatient R [facility], [facility] [id number] Univers 09:30:00 09:30:00 GADIEL barbosa o f [facility] 2020-07-14 2020-07-14 Travel 1.2.840.1 1.2.870.527 9436 [id number] Univers 00:00:00 00:00:00 97101.1.1 350.1.13.10 ity of 3.104.2.7 4.[place].7.3.698 [place] .3.135864 084.8 Medica l .8 [place] 2020-07-14 2020-07-14 Orders Doctor 1.2.840.6 [id number] Univers 00:00:00 00:00:00 Only Unassigned, 96323.1.1 ity of [place] 3.104.2.7 [place] .3.258882 Medica l .8 [place] 2020-06-16 2020-06-16 Outpatient R SELF, [facility] [id number] Univers 08:00:00 08:00:00 GADIEL ity o f [facility] 2020-06-06 2020-06-06 Telephone East, 1.2.840.5 [id number] Univers 00:00:00 00:00:00 Santiago 73420.1.1 ity of 3.104.2.7 [place] .3.664485 Medica l .8 [place] 2020-06-04 2020-06-04 [employer] Supervisor [place] Cardenas 1.2.840.1 [id number] Univers 09:31:58 09:40:12 Visit [facility] 26965.1.1 ity of 3.104.2.7 [place] .3.859817 Medica l .8 [place] 2020-06-04 2020-06-04 Office East, JOSÉ ANTONIO 1.2.678.123 5071 [id number] Univers 08:13:41 09:28:25 Visit Santiago [facility] 350.1.13.10 i ty of CLINICS 4.2.7.2.686 Richi bach 178.4675665 [facility] 089 [place] 2020-06-04 2020-06-04 Outpatient R EAST, [facility] [id number] Univers 08:30:00 08:30:00 SANTIAGO barbosa of [facility] 2020-06-04 2020-06-04 Orders Doctor 1.2.840.0 [id number] Univers 00:00:00 00:00:00 Only Unassigned, 60907.1.1 ity of [place] 3.104.2.7 [place] .3.323171 Medica l .8 [place] 2020-05-19 2020-05-19 Telephone Ronald, 1.2.840.1 [id number] Univers 00:00:00 00:00:00 Santiago 63715.1.1 ity of 3.104.2.7 [place] .3.292532 Medica l .8 [place] 2020-04-24 2020-04-24 Telephone East, 1.2.840.4 [id number] Univers 00:00:00 00:00:00 Santiago 87485.1.1 ity of 3.104.2.7 [place] .3.374461 Medica l .8 [place] 2020-04-14 2020-04-14 Outpatient R EAST, [facility] [id number] Univers 09:00:00 09:00:00 SANTIAGO ity of [facility] 2020-04-14 2020-04-14 Telephone East, 1.2.840.9 [id number] Univers 00:00:00 00:00:00 Santiago 21526.1.1 ity of 3.104.2.7 [place] .3.535739 Medica l .8 [place] 2020-03-31 2020-03-31 Outpatient R EAST, [facility] [id number] Univers 08:30:00 08:30:00 SANTIAGO ity [facility] 2020-03-03 2020-03-03 Outpatient R SELF, [facility] [id number] Univers 08:00:00 08:00:00 GADIEL barbosa o f [facility] 2020-03-03 2020-03-03 Outpatient R SELF, [facility] [id number] Univers 08:00:00 08:00:00 GADIEL ity o f [facility] 2020-03-03 2020-03-03 Travel 1.2.840.1 1.2.480.216 [id number] [id number] Univers 00:00:00 00:00:00 88986.1.1 350.1.13.10 ity of 3.104.2.7 4.[place].7.3.698 [place] .3.534695 084.8 Medica l .8 [place] 2020-02-06 2020-02-06 Telephone East, 1.2.840.3 [id number] [id number] Univers 00:00:00 00:00:00 Santiago 45766.1.1 ity of 3.104.2.7 [place] .3.875409 Medica l .8 [place] 2020-01-26 2020-01-26 Emergency Caridad, 1.2.840.3 [id number] [id number] Univers 10:03:00 13:05:00 Cynise 86130.1.1 ity of 3.104.2.7 [place] .3.509569 Medica l .8 [place] 2020-01-26 2020-01-26 Travel 1.2.840.1 1.2.996.940 7898 0120 Univers 00:00:00 00:00:00 59931.1.1 350.1.13.10 ity of 3.104.2.7 4.[place].7.3.698 [place] .3.686532 084.8 Medica l .8 [place] 2020-01-25 2020-01-25 Outpatient R EAST, [facility] [id number] Univers 08:30:00 08:30:00 SANTIAGO raheemcharlie [facility] 2020-01-25 2020-01-25 Telemedici East, 1.2.840.5 [id number] Univers 07:36:49 08:06:49 ne Visit Santiago 07801.1.1 ity of 3.104.2.7 [place] .3.061933 Medica l .8 [place] 2020-01-16 2020-01-16 Outpatient R EAST, [facility] [id number] Univers 08:00:00 08:00:00 SANTIAGO macielcharlie [facility] 2020-01-16 2020-01-16 Telephone East, 1.2.840.0 [id number] Univers 00:00:00 00:00:00 Santiago 71701.1.1 ity of 3.104.2.7 [place] .3.483086 Medica l .8 [place] 2020-01-14 2020-01-14 Outpatient R SELF, [facility] [id number] Univers 08:00:00 08:00:00 GADIEL vogel f [facility] 2019-12-31 2019-12-31 Outpatient R SELF, [facility] [id number] Univers 08:45:00 08:45:00 GADIEL barbosa o f [facility] 2019-10-17 2019-10-17 Outpatient R EAST, [facility] [id number] Univers 08:30:00 08:30:00 SANTIAGO barbosa [facility] 2019-10-12 2019-10-12 Outpatient R EAST, [facility] [id number] Univers 13:00:00 13:00:00 SANTIAGO ity of [facility] 2019-10-12 2019-10-12 Telemedici East, 1.2.840.0 [id number] Univers 07:38:30 08:08:30 ne Visit Santiago 08409.1.1 ity of 3.104.2.7 [place] .3.811737 Medica l .8 [place] 2019-10-08 2019-10-08 Outpatient R SELF, [facility] [id number] Univers 10:15:00 10:15:00 GADIEL barbosa o f [facility] 2019-10-03 2019-10-03 Case Xiao, 1.2.840.5 [id number] Univers 00:00:00 00:00:00 Management Michael Corbin 96353.1.1 i ty of 3.104.2.7 [place] .3.820642 Medica l .8 [place] 2019-09-27 2019-09-27 Telephone East, 1.2.840.2 [id number] Univers 00:00:00 00:00:00 Santiago 23936.1.1 ity of 3.104.2.7 [place] .3.399613 Medica l .8 [place] 2019-09-04 2019-09-04 Refill East, 1.2.840.9 [id number] Univers 00:00:00 00:00:00 Santiago 51109.1.1 ity of 3.104.2.7 [place] .3.717234 Medica l .8 [place] 2019-07-24 2019-07-24 Outpatient R [facility] [id number] Univers 08:30:00 08:30:00 SANTIAGO ity of [facility] 2019-07-17 2019-07-17 [facility] [id number] Univers 10:00:00 10:00:00 SANTIAGO ity of [facility] 2019-06-15 2019-06-15 Telephone East, 1.2.840.3 [id number] Univers 00:00:00 00:00:00 Santiago 84428.1.1 ity of 3.104.2.7 [place] .3.760722 Medica l .8 Branch 2019-06-13 2019-06-13 Telephone Team, [facility] 1.2.840.6 [id number] Univers 00:00:00 00:00:00 Health 11983.1.1 ity of [place].2.7 [place] .3.162182 Medica l .8 Branch 2019-05-10 2019-05-10 Refill Ronald, 1.2.840.4 [id number] Univers 00:00:00 00:00:00 Santiago 23411.1.1 ity of 3.104.2.7 [place] .3.623593 Medica l .8 Branch 2019-05-09 2019-05-09 Refill Ronald, 1.2.840.9 [id number] Univers 00:00:00 00:00:00 Santiago 14778.1.1 ity of 3.104.2.7 [place] .3.846398 Medica l .8 [place] 2019-04-30 2019-04-30 Outpatient R [facility], [facility] [id number] Univers 10:15:00 10:33:05 GADIEL vogel f [facility] 2019-04-18 2019-04-18 [employer] Supervisor Ronald [place] 1.2.840.1 [id number] Univers 10:00:39 10:44:31 Visit [facility] 32232.1.1 ity of 3.104.2.7 [place] .3.776071 Medica l .8 [place] 2019-04-18 2019-04-18 [facility] [id number] Univers 10:00:00 10:44:31 SANTIAGO itcharlie of [facility] 2019-04-18 2019-04-18 Office Ronald, 1.2.840.3 [id number] Univers 08:27:44 09:53:27 Visit Santiago 57208.1.1 ity of 3.104.2.7 [place] .3.859837 Medica l .8 Branch 2019-04-18 2019-04-18 Orders Doctor 1.2.840.3 [id number] Univers 00:00:00 00:00:00 Only Unassigned, 48760.1.1 ity of [place] 3.104.2.7 [place] .3.654526 Medica l .8 [place] 2019-04-11 2019-04-11 Refill East, 1.2.840.1 [id number] Univers 00:00:00 00:00:00 Santiago 35875.1.1 ity of 3.104.2.7 [place] .3.171942 Medica l .8 [place] 2019-04-09 2019-04-09 Refill East, 1.2.840.0 [id number] Univers 00:00:00 00:00:00 Santiago 99420.1.1 ity of 3.104.2.7 [place] .3.286522 Medica l .8 [place] 2019-04-03 2019-04-03 Telephone Team, [facility] 1.2.840.8 [id number] Univers 00:00:00 00:00:00 Health 96404.1.1 ity of [place]104.2.7 [place] .3.478406 Medica l .8 [place] 2019-03-27 2019-03-27 Telephone Self, 1.2.840.3 [id number] Univers 00:00:00 00:00:00 Gadiel 81875.1.1 ity of 3.104.2.7 [place] .3.835093 Medica l .8 [place] 2019-01-17 2019-01-17 Office East, 1.2.840.0 [id number] Univers 07:37:21 10:32:51 Visit Santiago 55852.1.1 ity of 3.104.2.7 [place] .3.212511 Medica l .8 [place] 2019-01-04 2019-01-12 Office Eveline Hansen 1.2.840.5 [id number] Univers 11:19:32 11:08:05 Visit Mariela 42849.1.1 ity of 3.104.2.7 [place] .3.796234 Medica l .8 [place] 2019-01-10 2019-01-10 Telephone Gitejay, 1.2.840.4 [id number] [id number] Univers 00:00:00 00:00:00 Eladio Inman 18337.1.1 ity of 3.104.2.7 [place] .3.372480 Medica l .8 [place] 2018-12-18 2018-12-18 Office Geraldine, 1.2.840.1 [id number] Univers 08:48:45 09:13:43 Visit Leyda 07996.1.1 it y of 3.104.2.7 [place] .3.550798 Medica l .8 Branch 2018-10-30 2018-10-30 Telephone East, 1.2.840.1 [id number] Univers 00:00:00 00:00:00 Santiago 50441.1.1 ity of 3.104.2.7 [place] .3.190798 Medica l .8 Branch 2018-10-23 2018-10-23 Orders Doctor 1.2.840.1 [id number] Univers 00:00:00 00:00:00 Only Unassigned, 39478.1.1 ity of [place] 3.104.2.7 [place] .3.496987 Medica l .8 Branch 2018-10-23 2018-10-23 Nurse Selvin, 1.2.840.6 [id number] Univers 00:00:00 00:00:00 Triage Stefanie 36070.1.1 ity of 3.104.2.7 [place] .3.760799 Medica l .8 Branch 2018-10-23 2018-10-23 Telephone Self, 1.2.840.5 [id number] Univers 00:00:00 00:00:00 Gadiel 08446.1.1 ity of 3.104.2.7 [place] .3.926221 Medica l .8 Branch 2018-10-20 2018-10-20 Telephone Self, 1.2.840.2 [id number] Univers 00:00:00 00:00:00 Gadiel 75156.1.1 ity of 3.104.2.7 [place] .3.118531 Medica l .8 Branch Results Test Description Test Time Test Comments Results Result Comments Source CBC WITH DIFF 2023-01-27 19:35:25 Test Item Value Reference Range Interpretation Comme nts WBC (test code = 6690-2) 4.36 See_Comment [A utomated message] The system which [employer] nerated this result transmit arpit reference range: [...] g/dL 31.6-35.1 L RDW-SD (test code = 32147-3) 50.1 fL 39.0-49.9 H RDW-CV (test code = 788-0) 15.7 % 12.0-15.5 H PLT (test code = 777-3) 112 See_Comment L [Au tomated message] The system which [employer] nerated this result transmit arpit reference range: 166 - 35 8 10*3/?L. The reference range was not used to interpret th is result as normal/abnormal . MPV (test code = 67952-2) 9.7 fL 9.5-12.9 NRBC/100 WBC (test code = 0.0 See_Comment [ Automated message] The 8207979404) system which [employer] nerated this result transmit arpit reference range: 0.0 - 10 .0 /100 WBCs. The reference r abbey was not used to interpr et this result as normal/abnor mal. NRBC x10^3 (test code = See_Comment [Au tomated message] The 9205836083) system which ge nerated this result transmit arpit reference range: 10*3/?L. The reference range was not u sed to interpret this result as normal/abnormal . GRAN MAT (NEUT) % (test code 72.1 % = 770-8) IMM GRAN % (test code = 0.20 % 0876011849) LYMPH % (test code = 736-9) 16.1 % MONO % (test code = 5905-5) 10.3 % EOS % (test code = 713-8) 1.1 % BASO % (test code = 706-2) 0.2 % GRAN MAT x10^3(ANC) (test 3.14 10*3/uL 1.88-7.09 code = 9327527659) IMM GRAN x10^3 (test code = 0.00-0.06 7335964472) LYMPH x10^3 (test code = 0.70 10*3/uL 1.32-3.29 L 731-0) MONO x10^3 (test code = 0.45 10*3/uL 0.33-0.92 742-7) EOS x10^3 (test code = 0.05 10*3/uL 0.03-0.39 711-2) BASO x10^3 (test code = 0.01-0.07 704-7) Lab Interpretation (test Abnormal code = 62794-4) [facility]. METABOLIC PANEL (45484)2022-05-06 22:42:55 Test Item Value Reference Range Interpretation Comments NA (test code = 137 mmol/L 135-145 7788651055) K (test code = 3.2 mmol/L 3.5-5.0 L 6068753537) CL (test code = 100 mmol/L 98-108 8781769021) CO2 TOTAL (test code = 23 mmol/L 23-31 6695476800) AGAP (test code = 2-16 6757703234) BUN (test code = 41 mg/dL 7-23 H 4272991905) GLUCOSE (test code = 98 mg/dL 70-110 7559854892) CREATININE (test code = 1.55 mg/dL 0.50-1.04 H 8978644366) TOTAL BILI (test code = 0.8 mg/dL 0.1-1.1 4354772362) CALCIUM (test code = 8.3 mg/dL 8.6-10.6 L 2138694986) T PROTEIN (test code = 6.9 g/dL 6.3-8.2 9354750115) ALBUMIN (test code = 3.9 g/dL 3.5-5.0 9138539692) ALK PHOS (test code = 89 U/L 34-122 3328726236) ALTv (test code = 101 U/L 5-35 H 1742-6) AST(SGOT) (test code = 203 U/L 13-40 H 6341202591) eGFR (test code = mL/min/1.73m2 3356472452) KYLE (test code = KYLE) Association of [...] tests). Lab Interpretation Abnormal (test code = 42160-6) [facility] WITH [id number] 22:33:52 Test Item Value Reference Range Interpretation [...] RDW-SD (test code = 46.3 fL 39.0-49.9 90343-4) RDW-CV (test code = 13.5 % 12.0-15.5 788-0) PLT (test code = See_Comment L [Automated 777-3) message] The sy stem which generated this result transmitted reference range : 166 - 358 10*3/ ?L. The reference r abbey was not used to interpret this result as normal/abnormal . MPV (test code = 9.5 fL 9.5-12.9 25387-6) NRBC/100 WBC (test See_Comment [Automat ed code = 5956396354) message] The system which generated this result transmitted reference range : 0.0 - 10.0 /100 WBCs. The refer ence range was not u sed to interpret th is result as normal/abnormal . NRBC x10^3 (test code See_Comment [Auto mated = 4587109688) message] The s ystem which generated this result transmitted reference range : 10*3/?L. The reference range was not used to interpret this result as normal/abnormal . GRAN MAT (NEUT) % 58.3 % (test code = 770-8) IMM GRAN % (test code 0.80 % = 3973861401) LYMPH % (test code = 28.1 % 736-9) MONO % (test code = 12.0 % 5905-5) EOS % (test code = 0.5 % 713-8) BASO % (test code = 0.3 % 706-2) GRAN MAT x10^3(ANC) 2.29 10*3/uL 1.88-7.09 (test code = 8809369931) IMM GRAN x10^3 (test 0.03 10*3/uL 0.00-0.06 code = 2069338613) LYMPH x10^3 (test code 1.10 10*3/uL 1.32-3.29 L = 731-0) MONO x10^3 (test code 0.47 10*3/uL 0.33-0.92 = 742-7) EOS x10^3 (test code = 0.03-0.39 L 711-2) BASO x10^3 (test code 0.01-0.07 = 704-7) Lab Interpretation Abnormal (test code = 56483-2) [facility] METABOLIC PANEL (NA, K, CL, CO2, GLUCOSE, BUN, CREATININE, CA)2022-04-22 21:43:42 Test Item Value Reference Range Interpretation Comments NA (test code = 142 mmol/L 135-145 3562930399) K (test code = 3.5 mmol/L 3.5-5.0 8232318572) CL (test code = 106 mmol/L 98-108 2031675288) CO2 TOTAL (test code = 26 mmol/L 23-31 8953945034) AGAP (test code = 2-16 7416049980) BUN (test code = 29 mg/dL 7-23 H 8600612613) GLUCOSE (test code = 84 mg/dL 70-110 6008175105) CREATININE (test code = 1.16 mg/dL 0.50-1.04 H 7695671458) CALCIUM (test code = 8.2 mg/dL 8.6-10.6 L 4981569478) eGFR (test code = mL/min/1.73m2 5841538898) KYLE (test code = KYLE) Association of [...] tests). Lab Interpretation Abnormal (test code = 09328-2) [facility] WITH [id number] 21:33:01 Test Item Value Reference Range Interpretation Comments WBC (test code = See_Comment [Automated 0852-2) message] The sy stem which generated this result transmitted reference range : 4.30 - 11.10 10*3/?L. The reference range was not used to interpret this result as normal/abnormal . RBC (test code = See_Comment L [Automated 053-8) message] The sy stem which generated this [...] (test code = 50.7 fL 39.0-49.9 H 45826-7) RDW-CV (test code = 14.6 % 12.0-15.5 788-0) PLT (test code = See_Comment L [Automated 777-3) message] The sy stem which generated this result transmitted reference range : 166 - 358 10*3/ ?L. The reference r abbey was not used to interpret this result as normal/abnormal . MPV (test code = 8.8 fL 9.5-12.9 L 14917-8) NRBC/100 WBC (test See_Comment [Automat ed code = [id number]) message] The system which generated this result transmitted reference range : 0.0 - 10.0 /100 WBCs. The refer ence range was not u sed to interpret th is result as normal/abnormal . NRBC x10^3 (test code See_Comment [Auto mated = [id number]) message] The s ystem which generated this result transmitted reference range : 10*3/?L. The reference range was not used to interpret this result as normal/abnormal . GRAN MAT (NEUT) % 70.9 % (test code = 770-8) IMM GRAN % (test code 0.50 % = [id number]) LYMPH % (test code = 17.4 % 736-9) MONO % (test code = 9.0 % 5905-5) EOS % (test code = 1.7 % 713-8) BASO % (test code = 0.5 % 706-2) GRAN MAT x10^3(ANC) 4.60 10*3/uL 1.88-7.09 (test code = [id number]) IMM GRAN x10^3 (test 0.03 10*3/uL 0.00-0.06 code = [id number]) LYMPH x10^3 (test code 1.13 10*3/uL 1.32-3.29 L = 731-0) MONO x10^3 (test code 0.58 10*3/uL 0.33-0.92 = 742-7) EOS x10^3 (test code = 0.11 10*3/uL 0.03-0.39 711-2) BASO x10^3 (test code 0.03 10*3/uL 0.01-0.07 = 704-7) Lab Interpretation Abnormal (test code = 78412-0) [facility] CULTURE [id number] 06:01:07 Test Item Value Reference Range Interpretation Comments Blood Culture-Aerobic No organisms No growth Previo us (test code = 65367-2) isolated prelim inary verified result was Culture [...] Culture-Anaerobic isolated preliminar y (test code = 06031-6) verifi ed result was Culture In Progress [...] CDT Lab Interpretation Normal (test code = 03770-0) [facility] CULTURE [id number] 06:01:07 Test Item Value Reference Range Interpretation Comments Blood Culture-Aerobic No organisms No growth Previo us (test code = 47936-1) isolated prelim inary verified result was Culture [...] Culture-Anaerobic isolated preliminar y (test code = 60217-9) verifi ed result was Culture In Progress [...] CDT Lab Interpretation Normal (test code = 29398-9) [id number] Test Item Value Reference Range Interpretation Comments Blood Culture-Aerobic No organisms No growth Previo us (test code = 29764-7) isolated prelim inary verified result was Culture [...] Culture-Anaerobic isolated preliminar y (test code = 92247-8) verifi ed result was Culture In Progress [...] CDT Lab Interpretation Normal (test code = 29341-9) [id number] 10:49:10 Test Item Value Reference Range Interpretation Comments NT-proBNP (test code 2660 pg/mL See_Comment H [Autom ated = [id number]) message] The system which generated this result transmitted reference range : <=125. The reference range was not used to interpret this result as normal/abnormal . KYLE (test code = KYLE) Biotin has been reported to cause a negative bias, interpret results relative to patient's use of biotin. Lab Interpretation Abnormal (test code = 47774-1) [id number] 10:49:10 Test Item Value Reference Range Interpretation Comments NT-proBNP (test code 2660 pg/mL See_Comment H [Autom ated = [id number]) message] The system which generated this result transmitted reference range : <=125. The reference range was not used to interpret this result as normal/abnormal . KYLE (test code = KYLE) Biotin has been reported to cause a negative bias, interpret results relative to patient's use of biotin. Lab Interpretation Abnormal (test code = 22910-9) [facility] METABOLIC PANEL (NA, K, CL, CO2, GLUCOSE, BUN, CREATININE, CA)2022-02-15 10:44:07 Test Item Value Reference Range Interpretation Comments NA (test code = 134 mmol/L 135-145 L 0349013332) K (test code = 3.2 mmol/L 3.5-5 L 6882270518) CL (test code = 98 mmol/L 98-108 9309202853) CO2 TOTAL (test code = 27 mmol/L 23-31 9024592013) AGAP (test code = 2-16 0059178053) BUN (test code = 19 mg/dL 7-23 6152206680) GLUCOSE (test code = 102 mg/dL 70-110 8818872597) CREATININE (test code = 0.95 mg/dL 0.5-1.04 9703897841) CALCIUM (test code = 8.5 mg/dL 8.6-10.6 L 2342998536) eGFR (test code = mL/min/1.73m2 9143541180) KYLE (test code = KYLE) Association of [...] tests). Lab Interpretation Abnormal (test code = 95940-9) [facility] Test Item Value Reference Range Interpretation Comments MAGNESIUM (test code = 6941900445) 1.8 mg/dL 1.7-2.4 Lab Interpretation (test code = Normal 27837-6) [facility] Test Item Value Reference Range Interpretation Comments MAGNESIUM (test code = 4830515348) 1.8 mg/dL 1.7-2.4 Lab Interpretation (test code = Normal 85376-9) [facility] (NA, K, CL, CO2, GLUCOSE, BUN, CREATININE, CA)2022-02-15 10:44:07 Test Item Value Reference Range Interpretation Comments NA (test code = 134 mmol/L 135-145 L 5089493381) K (test code = 3.2 mmol/L 3.5-5.0 L 6326642577) CL (test code = 98 mmol/L 98-108 5978386326) CO2 TOTAL (test code = 27 mmol/L 23-31 9598240560) AGAP (test code = 2-16 0664142739) BUN (test code = 19 mg/dL 7-23 2732472684) GLUCOSE (test code = 102 mg/dL 70-110 1344242184) CREATININE (test code = 0.95 mg/dL 0.50-1.04 9803863620) CALCIUM (test code = 8.5 mg/dL 8.6-10.6 L 0070777246) eGFR (test code = mL/min/1.73m2 9325403188) KYLE (test code = KYLE) Association of [...] tests). Lab Interpretation Abnormal (test code = 92386-2) [facility] WITH [id number] 10:12:06 Test Item Value Reference Range Interpretation [...] RDW-SD (test code = 47.8 fL 39-49.9 80167-7) RDW-CV (test code = 15.2 % 12-15.5 788-0) PLT (test code = See_Comment L [Automated 777-3) message] The sy stem which generated this result transmitted reference range : 166 - 358 10*3/ ?L. The reference r abbey was not used to interpret this result as normal/abnormal . MPV (test code = 8.9 fL 9.5-12.9 L 08931-0) NRBC/100 WBC (test See_Comment [Automat ed code = 7650687222) message] The system which generated this result transmitted reference range : 0.0 - 10.0 /100 WBCs. The refer ence range was not u sed to interpret th is result as normal/abnormal . NRBC x10^3 (test code See_Comment [Auto mated = 2424595438) message] The s ystem which generated this result transmitted reference range : 10*3/?L. The reference range was not used to interpret this result as normal/abnormal . GRAN MAT (NEUT) % 65.9 % (test code = 770-8) IMM GRAN % (test code 0.30 % = 6320964967) LYMPH % (test code = 21.0 % 736-9) MONO % (test code = 10.1 % 5905-5) EOS % (test code = 2.4 % 713-8) BASO % (test code = 0.3 % 706-2) GRAN MAT x10^3(ANC) 2.49 10*3/uL 1.88-7.09 (test code = 8384579655) IMM GRAN x10^3 (test 0-0.06 code = 0948486505) LYMPH x10^3 (test code 0.79 10*3/uL 1.32-3.29 L = 731-0) MONO x10^3 (test code 0.38 10*3/uL 0.33-0.92 = 742-7) EOS x10^3 (test code = 0.09 10*3/uL 0.03-0.39 711-2) BASO x10^3 (test code 0.01-0.07 = 704-7) Lab Interpretation Abnormal (test code = 37571-4) [facility] WITH [id number] 10:12:06 Test Item Value Reference Range Interpretation [...] RDW-SD (test code = 47.8 fL 39.0-49.9 98531-7) RDW-CV (test code = 15.2 % 12.0-15.5 788-0) PLT (test code = See_Comment L [Automated 777-3) message] The sy stem which generated this result transmitted reference range : 166 - 358 10*3/ ?L. The reference r abbey was not used to interpret this result as normal/abnormal . MPV (test code = 8.9 fL 9.5-12.9 L 01208-2) NRBC/100 WBC (test See_Comment [Automat ed code = 5071785787) message] The system which generated this result transmitted reference range : 0.0 - 10.0 /100 WBCs. The refer ence range was not u sed to interpret th is result as normal/abnormal . NRBC x10^3 (test code See_Comment [Auto mated = 9363501316) message] The s ystem which generated this result transmitted reference range : 10*3/?L. The reference range was not used to interpret this result as normal/abnormal . GRAN MAT (NEUT) % 65.9 % (test code = 770-8) IMM GRAN % (test code 0.30 % = 7839351012) LYMPH % (test code = 21.0 % 736-9) MONO % (test code = 10.1 % 5905-5) EOS % (test code = 2.4 % 713-8) BASO % (test code = 0.3 % 706-2) GRAN MAT x10^3(ANC) 2.49 10*3/uL 1.88-7.09 (test code = 0963232302) IMM GRAN x10^3 (test 0.00-0.06 code = 7911247173) LYMPH x10^3 (test code 0.79 10*3/uL 1.32-3.29 L = 731-0) MONO x10^3 (test code 0.38 10*3/uL 0.33-0.92 = 742-7) EOS x10^3 (test code = 0.09 10*3/uL 0.03-0.39 711-2) BASO x10^3 (test code 0.01-0.07 = 704-7) Lab Interpretation Abnormal (test code = 92750-6) [facility] WITH [id number] 11:18:28 Test Item Value Reference Range Interpretation [...] RDW-SD (test code = 49.5 fL 39-49.9 30519-0) RDW-CV (test code = 15.5 % 12-15.5 788-0) PLT (test code = See_Comment L [Automated 777-3) message] The sy stem which generated this result transmitted reference range : 166 - 358 10*3/ ?L. The reference r abbey was not used to interpret this result as normal/abnormal . MPV (test code = 11.4 fL 9.5-12.9 56462-9) IPF % (test code = 8.7 % 1.3-7.7 H Platelet count 0406587192) measured by fluorescence method. NRBC/100 WBC (test See_Comment [Automat ed code = 5099413336) message] The system which generated this result transmitted reference range : 0.0 - 10.0 /100 WBCs. The refer ence range was not u sed to interpret th is result as normal/abnormal . NRBC x10^3 (test code See_Comment [Auto mated = 0544649987) message] The s ystem which generated this result transmitted reference range : 10*3/?L. The reference range was not used to interpret this result as normal/abnormal . GRAN MAT (NEUT) % 62.0 % (test code = 770-8) IMM GRAN % (test code 0.80 % = 8328174175) LYMPH % (test code = 22.2 % 736-9) MONO % (test code = 9.6 % 5905-5) EOS % (test code = 5.1 % 713-8) BASO % (test code = 0.3 % 706-2) GRAN MAT x10^3(ANC) 2.21 10*3/uL 1.88-7.09 (test code = 8416861231) IMM GRAN x10^3 (test 0.03 10*3/uL 0-0.06 code = 9338103304) LYMPH x10^3 (test code 0.79 10*3/uL 1.32-3.29 L = 731-0) MONO x10^3 (test code 0.34 10*3/uL 0.33-0.92 = 742-7) EOS x10^3 (test code = 0.18 10*3/uL 0.03-0.39 711-2) BASO x10^3 (test code 0.01-0.07 = 704-7) POLYCHROMASIA (test 2+ See_Comment [Automa arpit code = 94408-2) message] The system which generated this result [...] . Lab Interpretation Abnormal (test code = 02649-4) [facility] (NA, K, CL, CO2, GLUCOSE, BUN, CREATININE, CA)2022-02-13 10:39:07 Test Item Value Reference Range Interpretation Comments NA (test code = 136 mmol/L 135-145 4831536334) K (test code = 4.1 mmol/L 3.5-5 0077741471) CL (test code = 102 mmol/L 98-108 6426008767) CO2 TOTAL (test code = 27 mmol/L 23-31 9843730078) AGAP (test code = 2-16 5772086037) BUN (test code = 22 mg/dL 7-23 3700786611) GLUCOSE (test code = 94 mg/dL 70-110 6646164305) CREATININE (test code = 0.94 mg/dL 0.5-1.04 3500951868) CALCIUM (test code = 8.1 mg/dL 8.6-10.6 L 5141100909) eGFR (test code = mL/min/1.73m2 9416926768) KYLE (test code = KYLE) Association of [...] tests). Lab Interpretation Abnormal (test code = 01301-2) [facility]22-[facility]12 01:50:10 Test Item Value Reference Range Interpretation Comments Height (test code = in 0428623743) Weight (test code = lbs 2082885693) Systolic BP (test code mmHg = 8516443233) Diastolic BP (test code mmHg = 9309251570) Heart Rate (test code = bpm 8793995551) BSA (test code = 1.85 m2 7148365423) IVS (test code = 1.22 cm 8513197108) Interventricular Septum 1.22 cm Diastolic Thickness by 2D (test code = 2997626) LVIDD (test code = 5.00 cm 6365701467) Left Ventricular End 117.9 mL Diastolic Volume by Teichholz Method (test code = 8239206) LVPWD (test code = 1.22 cm 6306524836) PW (test code = 1.22 cm 0.6-1.2 7868068326) EF(Teich) (test code = 74.60 % 2402231422) LVIDS (test code = 2.80 cm 1398707984) Left Ventricular End 29.9 mL Systolic Volume by Teichholz Method (test code = 0037419) FS (test code = 44 % 0119230963) EF - 2D (test code = 74.60 % 28170384) LVOT diameter (test 2.16 cm code = 6533641201) LVOT area (test code = 3.70 cm2 8265778588) Ao root diam (test code 3.40 cm = 3271045863) Aortic root (test code 3.4 cm = 6096613917) Ao root annulus (test 3.4 cm code = 0709886809) LA size (test code = 3.4 cm 4686326256) TR Peak Spencer (test code 330.0 cm/s = 3573152954) Triscuspid Valve mmHg Regurgitation Peak Gradient (test code = 1710274873) PV REGURGITATION PEAK mmHg GRADIENT (test code = 5991301540) PI dec slope (test code 137.20 cm/s2 = 1565703637) LAV(MOD-sp4) (test code 102.90 mL = 0008661908) MV Peak E Spencer (test 84.1 cm/s code = 5416048243) MV Peak A Spencer (test 40.1 cm/s code = 4750696383) E/A ratio (test code = ratio 7584320341) MV valve area p 1/2 3.70 cm2 method (test code = 3147144714) MV dec slope (test code 413.00 cm/s2 = 9418751735) MV P1/2t max spencer (test 83.70 cm/s code = 0788580470) MV Prop V (test code = 41.80 cm/s 8723667253) Tapse (test code = 1.83 cm 1322101713) LVOT stroke volume 96.90 cm3 (test code = 0782920671) LVOT peak spencer (test 125.5 cm/s code = 4928514736) LVOT mn grad (test code mmHg = 0860377593) AV LVOT peak gradient mmHg (test code = 8372184006) LVOT peak VTI (test 26.4 cm code = 8082480184) LV V1 mean (test code = 78.10 cm/s 4328866559) Aortic valve mean 103.7 cm/s velocity (test code = 9410564945) Ao peak spencer (test code 165.6 cm/s = 0655373381) Ao VTI (test code = 37.2 cm 9374208628) AV area by cont VTI 2.6 cm2 (test code = 2453034754) AV area peak spencer (test 2.8 cm2 code = 6717820058) Ao max PG (test code = 11.00 mm[Hg] 5224788431) AV peak gradient (test mmHg code = 5431594591) AV valve area (test 2.60 cm2 code = 3763096898) AV mean gradient (test mmHg code = 6176608502) LA Volume Index (BP) 55.2 mL/m2 (test code = 2600504596) LA volume (BP) (test 102.1 mL code = 4020307772) LAV(MOD-sp2) (test code 86.10 mL = 5717097602) A2C EF (test code = 61.20 % 2750748635) EF(sp2-el) (test code = 61.60 % 7967856111) SV(MOD-sp2) (test code 47.10 mL = 4078843180) LV Diastolic Volume 70.7 mL (BP) (test code = 4741105365) A4C EF (test code = 53.00 % 0063714431) EF(MOD-bp) (test code = 56.70 % 2301847186) EF(sp4-el) (test code = 53.90 % 1526211601) LV Systolic Volume (BP) 30.6 mL (test code = 6897642230) SV(MOD-bp) (test code = 40.10 mL 3576934486) SV(MOD-sp4) (test code 32.40 mL = 4379399609) SV(sp4-el) (test code = 33.10 mL 2657806178) EF (test code = 5901323285) Left Ventricular Stroke 40.1 mL Volume by 2-D Biplane-MOD (test code = 3306763) LV Diastolic Volume 38.2 mL/m2 Index (BP) (test code = 3440446263) LV Systolic Volume 16.5 mL/m2 Index (BP) (test code = 9552811271) Radiology Study observation (narrative) (test code = 19944-7) KYLE (test code = KYLE) ?Left?Ventricle: Left [...] left ventricular wall motion is normal. [facility] [id number] 05:45:01 Test Item Value Reference Interpretation Comments Range TROPONIN I (test See_Comment [Automated code = 3018544284) message] The system which generated this result [...] biotin. Lab Interpretation Normal (test code = 86001-9) [facility] [id number] 05:41:40 Test Item Value Reference Range Interpretation Comments NT-proBNP (test code 4250 pg/mL See_Comment H [Autom ated = 2826506563) message] The system which generated this result transmitted reference range : <=125. The reference range was not used to interpret this result as normal/abnormal . KYLE (test code = KYLE) Biotin has been reported to cause a negative bias, interpret results relative to patient's use of biotin. Lab Interpretation Abnormal (test code = 30214-3) [facility] [id number] 05:35:21 Test Item Value Reference Range Interpretation Comments APTT Patient (test See_Comment [Automat ed code = 3173-2) message] The system which generated this result transmitted reference range : 23 - 38 Seconds . The reference range was not used to interpr et this result as normal/abnormal . KYLE (test code = KYLE) The [facility] patient population mean normal value for aPTT is 30 seconds. Lab Interpretation Normal (test code = 97237-2) [facility] [id number] 05:35:21 Test Item Value Reference Range Interpretation Comments APTT Patient (test See_Comment [Automat ed code = 3173-2) message] The system which generated this result transmitted reference range : 23 - 38 Seconds . The reference range was not used to interpr et this result as normal/abnormal . KYLE (test code = KYLE) The [facility] patient population mean normal value for aPTT is 30 seconds. Lab Interpretation Normal (test code = 80461-9) [facility] / [id number] 05:33:21 Test Item Value Reference Range Interpretation [...] tions. Lab Interpretation (test Normal code = 70393-0) [facility] METABOLIC PANEL (52308)2022-02-11 05:33:21 Test Item Value Reference Range Interpretation Comments NA (test code = 137 mmol/L 135-145 4188533504) K (test code = 4.3 mmol/L 3.5-5 2708031979) CL (test code = 103 mmol/L 98-108 6220460453) CO2 TOTAL (test code = 25 mmol/L 23-31 0760561702) AGAP (test code = 2-16 2533208352) BUN (test code = 19 mg/dL 7-23 1415379224) GLUCOSE (test code = 120 mg/dL 70-110 H 2993163967) CREATININE (test code = 1.15 mg/dL 0.5-1.04 H 0689483942) TOTAL BILI (test code = 0.9 mg/dL 0.1-1.3 9936554924) CALCIUM (test code = 8.9 mg/dL 8.6-10.6 2963338568) T PROTEIN (test code = 6.6 g/dL 6.3-8.2 6574909075) ALBUMIN (test code = 4.0 g/dL 3.5-5 9536941887) ALK PHOS (test code = 73 U/L 34-122 1684288234) ALTv (test code = 18 U/L 5-35 1742-6) AST(SGOT) (test code = 31 U/L 13-40 3417831650) eGFR (test code = mL/min/1.73m2 2213376476) KYLE (test code = KYLE) Association of [...] tests). Lab Interpretation Abnormal (test code = 10780-5) [facility]. METABOLIC PANEL (39797)2022-02-11 05:33:21 Test Item Value Reference Range Interpretation Comments NA (test code = 137 mmol/L 135-145 0301777093) K (test code = 4.3 mmol/L 3.5-5.0 2923738093) CL (test code = 103 mmol/L 98-108 9776952286) CO2 TOTAL (test code = 25 mmol/L 23-31 4137414019) AGAP (test code = 2-16 2020288937) BUN (test code = 19 mg/dL 7-23 7931753651) GLUCOSE (test code = 120 mg/dL 70-110 H 7159041299) CREATININE (test code = 1.15 mg/dL 0.50-1.04 H 7777971062) TOTAL BILI (test code = 0.9 mg/dL 0.1-1.2 0567188394) CALCIUM (test code = 8.9 mg/dL 8.6-10.6 5740064028) T PROTEIN (test code = 6.6 g/dL 6.3-8.2 2491566518) ALBUMIN (test code = 4.0 g/dL 3.5-5.0 9367927090) ALK PHOS (test code = 73 U/L 34-122 4858109265) ALTv (test code = 18 U/L 5-35 1742-6) AST(SGOT) (test code = 31 U/L 13-40 4081398440) eGFR (test code = mL/min/1.73m2 1790460813) KYLE (test code = KYLE) Association of [...] tests). Lab Interpretation Abnormal (test code = 90310-4) [facility] / [id number] 05:33:21 Test Item Value Reference Range Interpretation Comments PROTIME PATIENT (test See_Comment [Auto mated message] code = 5964-2) The system [employer] ich generated this result transmitted ref erence range: 12.0 - 1 4.7 Seconds. The re ference range was not u sed to interpret this result as normal/abnor mal. INR (test code = 6301-6) Nor mal INR <1.1; Warfarin Therap eutic range 2.0 to 3. 0 or 2.5 to 3.5, dep ending upon the indica tions. Lab Interpretation (test Normal code = 59424-4) [facility] WITH [id number] 05:14:37 Test Item Value Reference Range Interpretation Comments WBC (test code = See_Comment [Automated 8322-2) message] The sy stem which generated this result transmitted reference range : 4.30 - 11.10 10*3/?L. The reference range was not used to interpret this result as normal/abnormal . RBC (test code = See_Comment L [Automated 389-8) message] The sy stem which generated this [...] RDW-SD (test code = 47.9 fL 39-49.9 61427-8) RDW-CV (test code = 14.9 % 12-15.5 788-0) PLT (test code = See_Comment L [Automated 777-3) message] The sy stem which generated this result transmitted reference range : 166 - 358 10*3/ ?L. The reference r abbey was not used to interpret this result as normal/abnormal . MPV (test code = 9.1 fL 9.5-12.9 L 20271-4) NRBC/100 WBC (test See_Comment [Automat ed code = 8597070504) message] The system which generated this result transmitted reference range : 0.0 - 10.0 /100 WBCs. The refer ence range was not u sed to interpret th is result as normal/abnormal . NRBC x10^3 (test code See_Comment [Auto mated = 3932077834) message] The s ystem which generated this result transmitted reference range : 10*3/?L. The reference range was not used to interpret this result as normal/abnormal . GRAN MAT (NEUT) % 78.5 % (test code = 770-8) IMM GRAN % (test code 0.20 % = 3520435144) LYMPH % (test code = 11.6 % 736-9) MONO % (test code = 8.4 % 5905-5) EOS % (test code = 1.1 % 713-8) BASO % (test code = 0.2 % 706-2) GRAN MAT x10^3(ANC) 3.45 10*3/uL 1.88-7.09 (test code = 0499467515) IMM GRAN x10^3 (test 0-0.06 code = 7563779807) LYMPH x10^3 (test code 0.51 10*3/uL 1.32-3.29 L = 731-0) MONO x10^3 (test code 0.37 10*3/uL 0.33-0.92 = 742-7) EOS x10^3 (test code = 0.05 10*3/uL 0.03-0.39 711-2) BASO x10^3 (test code 0.01-0.07 = 704-7) Lab Interpretation Abnormal (test code = 77746-2) [facility] Coronavirus 2019 [id number] 18:08:00 Test Item Value Reference Range Interpretation [...] det ection of nucleic acids f rom konFBHM-RwC-2 v irus and diagnosis of SA RS-CoV-2 virusinfection. It is an Emergency Use Authorization ( EUA) testauthorized by the U.S. FDA. BASIC METABOLIC [id number] 09:37:00 Test Item Value Reference Range Interpretation [...] = 9.0 mg/dL 8.0-10.5 N CA) PROTHROMBIN [id number] 09:32:00 Test Item Value Reference Range Interpretation [...] (to prevent recurrent infar ct). 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 [facility] - XR CHEST 1 [id number] 00:00:00 [facility] 1955 Sex: F FAX: Carmenza Kelly DO [phone] [place]: St: [facility] FAX: Mike Scales MD [phone] FAX: Bahman Chopra [phone] Name: LIO WATTS [facility] : 1955 Age/S: 66/F [address] [place] [address] Unit #: [id number] Loc: [place] [address] Phys: Bahman Chopra [facility] Acct: [id number] Dis Date: Status: ADM IN PHONE #: [phone] Exam Date: 06/17/2021 1320 FAX #: [phone] Reason: WATCHMAN EXAMS: CPT CODE: [id number] XR CHEST 1 V 55475 PROCEDURE INFORMATION: Exam: XR Chest Exam date [...] Chopra Technologist: RT Taylor(R) Trnbob Date/Time/By: 06/17/2021 (8988) : By:Susanna Orig Print D/T: S: 06/17/2021 (8615) PAGE 1 Signed ReportCOVID 19 Asymptomatic IH [id number] 12:29:00 Test Item Value Reference Range Interpretation [...] high or waivedcomplexit y tests. BASIC METABOLIC [id number] 11:37:00 Test Item Value Reference Range Interpretation [...] code = 9.0 mg/dL 8.0-10.5 N CA) [id number] 11:37:00 Test Item Value Reference Range Interpretation Comments PREALBUMIN (test code = PREALB) 24.3 mg/dL 16.0-40.0 N PROTHROMBIN [id number] 11:03:00 Test Item Value Reference Range Interpretation [...] (to prevent recurrent infar ct). CBC W/AUTO [id number] 10:59:00 Test Item Value Reference Range Interpretation [...] 3/uL 0.0-0.1 N NRBC#) - CHEST 2 [id number] 00:00:[address] [facility] : 1955 Sex: F FAX: Carmenza Kelly DO [phone] [place]: St: PRE FAX: Mike Scales MD [phone] Name: LIO WATTS [facility] Tano Garcia : 1955 Age/S: 66/F [address] [place] [address] Unit #: [id number] Loc: [place] [address] Phys: Mike Lund MD Acct: [id number] Dis Date: Status: PRE SDC PHONE #: [phone] Exam Date : 06/16/2021 1120 FAX #: [phone] Reason: PREOP EXAMS: CPT CODE: [id number] XR CHEST 2 V 35931 PROCEDURE INFORMATION: Exam: XR Chest Exam date [...] Technologist: Danielle Nix RT(R) Trnscrd Date/Time/By: 06/16/2021 (4910) : By: [email or web address] Orig Print D/T: S: 06/16/2021 (3328) PAGE 1 Signed ReportGastrointestinal byjne6119-93-16 04:35:05 Test Item Value Reference Interpretation Comments [...] Rotavirus PCR (test Not Detected code = 2160397) Salmonella PCR (test Not Detected code = [...] (test code = 7124) [facility] dluwpdt4428-11-47 19:30:47 Test Item Value Reference Range Interpretation Comments Case number (test [id number] code = 9701703) Surgical pathology See link below for PDF report (test code = Lab Report 2255) Result status (test This is Supplemental code = 9580971) Report [facility] [id number] [facility]VcvryjveUZPYJIEGPP9204-51-55 16:31:00 Test Item Value Reference Range Interpretation Comments POC Activated Clotting Time (test code 153 s = POC Activated Clotting Time) [facility] HospitalVnromewMCFQBOSEEZ4758-15-87 16:31:00 Test Item Value Reference Range Interpretation Comments POC Activated Clotting Time (test code 153 s = POC Activated Clotting Time) [facility] HospitalMidikhiJQNWUPTPYZ3242-13-37 16:31:00 Test Item Value Reference Range Interpretation Comments POC Activated Clotting Time (test code 153 s = POC Activated Clotting Time) [facility] HospitalDisscupKMZGODRDUR7121-17-32 16:31:00 Test Item Value Reference Range Interpretation Comments POC Activated Clotting Time (test code 153 s = POC Activated Clotting Time) [place] [id number] 16:31:00 Test Item Value Reference Range Interpretation Comments POC Activated Clotting Time (test code 153 s = POC Activated Clotting Time) [place] [id number] 16:31:00 Test Item Value Reference Range Interpretation Comments POC Activated Clotting Time (test code 153 s = POC Activated Clotting Time) [place] [id number] 16:31:00 Test Item Value Reference Range Interpretation Comments POC Activated Clotting Time (test code 153 s = POC Activated Clotting Time) [facility] HospitalMpvywbhDYSZNUSXOP0262-75-65 14:37:00 Test Item Value Reference Range Interpretation Comments POC Activated Clotting Time (test code 454 s = POC Activated Clotting Time) [facility] H[id number] 14:37:00 Test Item Value Reference Range Interpretation Comments POC Activated Clotting Time (test code 454 s = POC Activated Clotting Time) [facility] H[id number] 14:37:00 Test Item Value Reference Range Interpretation Comments POC Activated Clotting Time (test code 454 s = POC Activated Clotting Time) [facility] H[id number] 14:37:00 Test Item Value Reference Range Interpretation Comments POC Activated Clotting Time (test code 454 s = POC Activated Clotting Time) [facility] H[id number] 14:37:00 Test Item Value Reference Range Interpretation Comments POC Activated Clotting Time (test code 454 s = POC Activated Clotting Time) [facility] H[id number] 14:37:00 Test Item Value Reference Range Interpretation Comments POC Activated Clotting Time (test code 454 s = POC Activated Clotting Time) [facility] HospitalUrawwbmSNHTTIESQF8634-66-70 14:37:00 Test Item Value Reference Range Interpretation Comments POC Activated Clotting Time (test code 454 s = POC Activated Clotting Time) [facility] HospitalSezvylgHIHNXTSDMJ1879-95-12 14:13:00 Test Item Value Reference Range Interpretation Comments POC Activated Clotting Time (test code 354 s = POC Activated Clotting Time) [facility] HospitalTuvcceoSQFQCHMNOV6708-97-61 14:13:00 Test Item Value Reference Range Interpretation Comments POC Activated Clotting Time (test code 354 s = POC Activated Clotting Time) [facility] HospitalYxvomvuWVEJXENCNE9153-85-25 14:13:00 Test Item Value Reference Range Interpretation Comments POC Activated Clotting Time (test code 354 s = POC Activated Clotting Time) [facility] CampusJzqgrotCTSCBCURLF6555-61-68 14:13:00 Test Item Value Reference Range Interpretation Comments POC Activated Clotting Time (test code 354 s = POC Activated Clotting Time) [facility]AscukmbLSAIROKEOO0818-62-80 14:13:00 Test Item Value Reference Range Interpretation Comments POC Activated Clotting Time (test code 354 s = POC Activated Clotting Time) [facility]KjcpltwSGHOUOTKXR7144-09-09 14:13:00 Test Item Value Reference Range Interpretation Comments POC Activated Clotting Time (test code 354 s = POC Activated Clotting Time) [facility] CampusUpcgbqrYDSQMHZEOR9513-84-86 14:13:00 Test Item Value Reference Range Interpretation Comments POC Activated Clotting Time (test code 354 s = POC Activated Clotting Time) [facility] QQTFHDN8997-19-34 10:37:00Negative (08/29/20 5:37 AM) [facility] HermannCHEM FNZKK7063-88-76 10:37:63539Fhubegcy HermannCHEM PANEL 2020-08-29 10:37:0028[facility]annCHEM OQUDN1587-83-69 10:37:001.01[facility] HermannCHEM BAKFA9170-31-05 10:37:28284Ktqhurad HermannCHEM BZCZO9900-32-69 10:37:003.8[facility] HermannCHEM TTGSF7340-57-50 10:37:86157Kmeetulu HermannCHEM YQIIP6763-72-41 10:37:0028[facility] HermannCHEM PPKHN6252-28-56 10:37:009.8 [facility]annCHEM OXWTU5461-74-87 10:37:0011.8[facility] HermannCHEM PANEL 2020-08-29 10:37:0059[facility] HermannCHEM FWPDO3545-85-74 10:37:002.9[facility] UquawstEYBFXEUBMQ4324-17-78 10:37:006.8[facility] AnohsmoZKHMXMNHSF8276-78-67 10:37:004.47[facility] AjjcbatEGMDQHEYAO1566-65-26 10:37:0010.6[facility] RMJWLOWYFD2210-00-83 10:37:0034.0[facility] QtunmkmEPXSLMXLOR9852-67-40 10:37:00 76.1[facility] CiujqmlQNIINRHCZH7050-03-13 10:37:00 Test Item Value Reference Range Interpretation Comments MCH (test code = MCH) 23.8 pg 27.0-31.0 [facility] AwifdyxFCMANMLXDW1097-90-91 10:37:0031.3[facility] HermannHEMATOLOGY 2020-08-29 10:37:0018.2[facility] SxyqbigFLIESNLSUL4856-76-21 10:37:78720Egcufiio AixhlalOKPKHVVSBU3278-42-27 10:37:007.5[facility] PzaqukqOEDHQDNXEA6784-73-19 10:37:00 Test Item Value Reference Range Interpretation Comments PT (test code = PT) 12.8 s 12.0-14.7 [facility] BtcrapnPEGFMVQJQH2851-46-52 10:37:00 Test Item Value Reference Range Interpretation Comments INR (test code = INR) 0.97 1 0.85-1.17 [facility] BbmnjeoPLTOVJVNQT9403-32-96 10:37:00 Test Item Value Reference Range Interpretation Comments PTT (test code = PTT) 25.0 s 22.9-35.8 [facility] WgsxkcwQCYUPBWOFA2879-26-34 10:37:0070.5[facility] HermannHEMATOLOGY 2020-08-29 10:37:0018.8[facility] ZkxbvooLUQIPBYGHH0412-59-83 10:37:009.5[facility] RficgmkSECXYKUNRC6412-91-77 10:37:000.9[facility] SmwoxxiYSJSCODRLP2104-35-66 10:37:000.3[facility] CfybeijZLCALEISTT4462-37-15 10:37:004.8[facility] OWDRGOGFXQ7875-08-44 10:37:001.3[facility] IwvpdmpSNHWJHZDQI1086-28-01 10:37:000.6 [facility] FdgjjjuNIXRVZYOHG0240-66-33 10:37:000.1[facility] HermannHEMATOLOGY 2020-08-29 10:37:001+ *ABN*(08/29/20 5:37 AM)[facility] CnchwvgCSNOVKFYYQ0637-73-17 10:37:00Not Detected (08/29/20 5:37 AM)[facility] HermannBLOOD BANK RESULTS 2020-08-29 10:37:00Negative (08/29/20 5:37 AM)[facility] HermannCHEM MIJAB5199-27-55 10:37:55924Ivoninaw HermannCHEM PRFJF6277-49-73 10:37:0028[facility] HermannCHEM DFDHY6211-05-26 10:37:001.01[facility] HermannCHEM TCNOF4218-54-82 10:37:82669 [facility] HermannCHEM GWDLM1014-52-37 10:37:003.8[facility] HermannCHEM PANEL 2020-08-29 10:37:99381Zwaqtvic HermannCHEM OGLTN2609-93-94 10:37:0028[facility] HermannCHEM MEJYF6218-73-95 10:37:009.8[facility] HermannCHEM IPFAR7471-52-65 10:37:0011.8[facility] HermannCHEM XPRJR3359-98-95 10:37:0059[facility] HermannCHEM INZYV1917-82-77 10:37:002.9[facility] OozwpidMTNDHMPEAL4588-52-61 10:37:006.8 [facility] YexwxodEJXNQAUYQG4177-79-72 10:37:004.47[facility] HermannHEMATOLOGY 2020-08-29 10:37:0010.6[facility] QnenwkaWGUNZWMLPQ0976-54-72 10:37:0034.0[facility] JpviufaURFHYXZXYN9627-28-18 10:37:0076.1[facility] XkftlacNEUNALPRVQ8158-93-97 10:37:00 Test Item Value Reference Range Interpretation Comments MCH (test code = MCH) 23.8 pg 27.0-31.0 [facility] NcqyeyiROCEDXYDIB5417-45-66 10:37:0031.3[facility] HermannHEMATOLOGY 2020-08-29 10:37:0018.2[facility] DmmjrcjFELIGBDVHZ3462-29-46 10:37:77536Ycrsnsop GghzowsXVUWKCTENL1569-67-46 10:37:007.5[facility] NjtxofyHMWADIMHJB1197-27-80 10:37:00 Test Item Value Reference Range Interpretation Comments PT (test code = PT) 12.8 s 12.0-14.7 [facility] FryvsrqOOGBGOBICO7024-74-10 10:37:00 Test Item Value Reference Range Interpretation Comments INR (test code = INR) 0.97 1 0.85-1.17 [facility] PtwyikaOTHWYSIOEV2137-88-97 10:37:00 Test Item Value Reference Range Interpretation Comments PTT (test code = PTT) 25.0 s 22.9-35.8 [facility] QyzsydjKKZXHHOWHD0750-73-74 10:37:0070.5[facility] HermannHEMATOLOGY 2020-08-29 10:37:0018.8[facility] FxfwdlnIMQAUQGDOZ0719-58-09 10:37:009.5[facility] LstzwxjAIOLCLQINO5299-76-48 10:37:000.9[facility] BpjwtkkFDTFVRXTIT5971-86-06 10:37:000.3[facility] NkdnaibOPEWJJIEPY6945-88-45 10:37:004.8[facility] TVBHIQATQW7926-93-51 10:37:001.3[facility] PmnlteiHQSZDYIFJU0131-25-72 10:37:000.6 [facility] SlrslqcKSVESKPMTZ6596-78-59 10:37:000.1[facility] HermannHEMATOLOGY 2020-08-29 10:37:001+ *ABN*(08/29/20 5:37 AM)[facility] QkzuotoONCQJAJLVU9625-60-81 10:37:00Not Detected (08/29/20 5:37 AM)[facility] HermannBLOOD BANK RESULTS 2020-08-29 10:37:00Negative (08/29/20 5:37 AM)[facility] HermannCHEM LDVCE6440-78-02 10:37:76558Thuhgydl HermannCHEM HINYM7996-09-55 10:37:0028[facility] HermannCHEM OILGY6249-53-79 10:37:001.01[facility] HermannCHEM YOMAS0141-56-66 10:37:15792 [facility]annCHEM VMHUF3426-15-57 10:37:003.8[facility] HermannCHEM PANEL 2020-08-29 10:37:36682Uiyqbksg HermannCHEM OIDRU2302-39-91 10:37:0028[facility] HermannCHEM TGVDJ4497-91-15 10:37:009.8[facility] HermannCHEM JYBCP5345-56-41 10:37:0011.8[facility] HermannCHEM MNZMT3888-67-36 10:37:0059[facility] HermannCHEM LALQS1297-82-50 10:37:002.9[facility] HlmbqicXWVWJYBWDW1397-94-75 10:37:006.8 [facility] KrdvljxVSULTZKVZY0174-53-16 10:37:004.47[facility] HermannHEMATOLOGY 2020-08-29 10:37:0010.6[facility] BsthdgqGUPMHIDEPE3689-67-28 10:37:0034.0[facility] DwhrndpMRBLXSNBKN4419-23-37 10:37:0076.1[facility] SjlorhrIHIKQTAHIX4474-59-26 10:37:00 Test Item Value Reference Range Interpretation Comments MCH (test code = MCH) 23.8 pg 27.0-31.0 [facility] ZimhzytJNYONWOGZV4946-45-02 10:37:0031.3[facility] HermannHEMATOLOGY 2020-08-29 10:37:0018.2[facility] QxpgrguNOWHEHNJHP2173-43-72 10:37:93005Tyawtxag SzzylikJYENSWSGTV2769-09-69 10:37:007.5[facility] BrwzonkXMBGSZKEKQ6369-75-35 10:37:00 Test Item Value Reference Range Interpretation Comments PT (test code = PT) 12.8 s 12.0-14.7 [facility] PwrwvpfCNYAAGYSED1614-77-34 10:37:00 Test Item Value Reference Range Interpretation Comments INR (test code = INR) 0.97 1 0.85-1.17 [facility] RixcjikLTWICPOLGF7580-08-97 10:37:00 Test Item Value Reference Range Interpretation Comments PTT (test code = PTT) 25.0 s 22.9-35.8 [facility] GrcgfcwIOXKDWXLHZ9114-08-00 10:37:0070.5[facility] HermannHEMATOLOGY 2020-08-29 10:37:0018.8[facility] YtlajoeQDEETQVSFU9167-27-16 10:37:009.5[facility] YgvrmekUDRGZRXQON6918-31-86 10:37:000.9[facility] PgaxwhvSXVIESOIEZ2227-62-26 10:37:000.3[facility] XsdxuypIFVHESIRTO9904-29-34 10:37:004.8[facility] HHZTYHATJP2316-16-11 10:37:001.3[facility] ZlujbpyQXQIRRIVAD1662-81-49 10:37:000.6 [facility] AikhkgdIFMNGVVBJA1286-04-73 10:37:000.1[facility] HermannHEMATOLOGY 2020-08-29 10:37:001+ *ABN*(08/29/20 5:37 AM)[facility] QfxaukmQWZZPBBOIG5470-78-63 10:37:00Not Detected (08/29/20 5:37 AM)[facility] HermannBLOOD BANK RESULTS 2020-08-29 10:37:00Negative (08/29/20 5:37 AM)[facility] HermannCHEM ODNJU2649-36-71 10:37:48127Bwyteszs HermannCHEM TUVLQ9604-14-92 10:37:0028[facility] HermannCHEM BDZXC5277-61-42 10:37:001.01[facility] HermannCHEM GDEUS3606-64-04 10:37:38248 [facility]annCHEM NPYPL1314-83-27 10:37:003.8[facility] HermannCHEM PANEL 2020-08-29 10:37:52960Iahyrfxx HermannCHEM IWAYX7184-90-14 10:37:0028[facility] HermannCHEM RKITP0584-58-76 10:37:009.8[facility] HermannCHEM IQNTB4366-85-80 10:37:0011.8[facility] HermannCHEM NFZEK6257-38-02 10:37:0059[facility] HermannCHEM ZFQXB4531-28-30 10:37:002.9[facility] HbqnczoMGTUAQPJGW5082-37-66 10:37:006.8 [facility] KxvumknPZMKXDCYTJ4567-43-42 10:37:004.47[facility] HermannHEMATOLOGY 2020-08-29 10:37:0010.6[facility] IlmvevzIPNSAZVGUC2265-92-47 10:37:0034.0[facility] FamqjduHQFNOOMTBS0118-87-79 10:37:0076.1[facility] OkzrbbpXLSEJQHOZF9103-14-97 10:37:00 Test Item Value Reference Range Interpretation Comments MCH (test code = MCH) 23.8 pg 27.0-31.0 [facility] TmbucayILWDAPOIDC9536-51-16 10:37:0031.3[facility] HermannHEMATOLOGY 2020-08-29 10:37:0018.2[facility] IxomlnlNOORXIFPSB9721-91-69 10:37:40436Megcbuay ZqkpugmKOYBAVIUZX5723-60-30 10:37:007.5[facility] PssrknwBLWYPYCOYR2995-28-59 10:37:00 Test Item Value Reference Range Interpretation Comments PT (test code = PT) 12.8 s 12.0-14.7 [facility] MtowerhWWVXTTHGZJ7982-89-59 10:37:00 Test Item Value Reference Range Interpretation Comments INR (test code = INR) 0.97 1 0.85-1.17 [facility] VdtwbtqLHBZWLFKYV1868-78-77 10:37:00 Test Item Value Reference Range Interpretation Comments PTT (test code = PTT) 25.0 s 22.9-35.8 [facility] RdzjjpvHICOSBUGAM3938-59-57 10:37:0070.5[facility] HermannHEMATOLOGY 2020-08-29 10:37:0018.8[facility] MwjwiwsMIUFSYUTIO7204-81-60 10:37:009.5[facility] ZkfgfznJWVALECDCB9571-13-12 10:37:000.9[facility] FppmgzfROORNAGYKA3818-02-63 10:37:000.3[facility] DyaywjvOFEBJZNCBR8152-76-39 10:37:004.8[facility] NJFJFBYJFE7841-51-93 10:37:001.3[facility] KuhyaqeXEGZLDGSYP0634-26-54 10:37:000.6 [facility] PwkzysiFAYAQDTZRO8308-80-60 10:37:000.1[facility] HermannHEMATOLOGY 2020-08-29 10:37:001+ *ABN*(08/29/20 5:37 AM)[facility] PbgcaqjQGRDSIOUGG2147-90-32 10:37:00Not Detected (08/29/20 5:37 AM)[facility] HermannBLOOD BANK RESULTS 2020-08-29 10:37:00Negative (08/29/20 5:37 AM)[facility] HermannCHEM ETXIV3071-67-70 10:37:41476Dvcoybwv HermannCHEM SPXNB8703-03-77 10:37:0028[facility] HermannCHEM TGTSS9888-09-79 10:37:001.01[facility] HermannCHEM YCTJO9976-79-83 10:37:16497 [facility]annCHEM MNHRD7096-35-28 10:37:003.8[facility] HermannCHEM PANEL 2020-08-29 10:37:47588Ygmqyiyd HermannCHEM DQTMP2693-14-88 10:37:0028[facility] HermannCHEM BKEBM1204-80-02 10:37:009.8[facility] HermannCHEM LJOZK8262-41-83 10:37:0011.8[facility] HermannCHEM WKKPO8972-89-66 10:37:0059[facility] HermannCHEM JIZXE8597-96-55 10:37:002.9[facility] HrptwteJZMMPKTELZ6551-72-16 10:37:006.8 [facility] UspudvrLVUOSKNGUY4613-34-01 10:37:004.47[facility] HermannHEMATOLOGY 2020-08-29 10:37:0010.6[facility] ZsxijxrFRMANRTTWZ6880-11-40 10:37:0034.0[facility] ZdqxhzxJYTIQMNRTU5678-79-97 10:37:0076.1[facility] WntsujnHRPPXIYBQX5625-25-60 10:37:00 Test Item Value Reference Range Interpretation Comments MCH (test code = MCH) 23.8 pg 27.0-31.0 [facility] SolqfbpOAOGCNRFTH4836-76-64 10:37:0031.3[facility] HermannHEMATOLOGY 2020-08-29 10:37:0018.2[facility] XaetohqJMQFFOJAAY7168-86-79 10:37:09820Npzvpxcd KrfwyvhDUDQAXRJRT8021-08-85 10:37:007.5[facility] QdmfptaDPLOYTWSRQ5706-14-46 10:37:00 Test Item Value Reference Range Interpretation Comments PT (test code = PT) 12.8 s 12.0-14.7 [facility] MkvkqxiRCVWSRUNBP4762-95-69 10:37:00 Test Item Value Reference Range Interpretation Comments INR (test code = INR) 0.97 1 0.85-1.17 [facility] RyhzxtwJDQIQLTZPW7619-24-48 10:37:00 Test Item Value Reference Range Interpretation Comments PTT (test code = PTT) 25.0 s 22.9-35.8 [facility] VtkjumfKOKBHQQMGL5430-31-97 10:37:0070.5[facility] HermannHEMATOLOGY 2020-08-29 10:37:0018.8[facility] XnpumiiSRDYGOZRFT5832-53-00 10:37:009.5[facility] JxgmdstZCPCEZRLTS9393-27-80 10:37:000.9[facility] EbhwsgvFDLAISLXBH7785-37-45 10:37:000.3[facility] NgfxyxaVIPNMLAMAE9936-39-65 10:37:004.8[facility] XERHSAQWSW3401-35-84 10:37:001.3[facility] IwqqddbCGPWBFXHCM5684-51-08 10:37:000.6 [facility] ObgesbkJXDHABTELM4013-88-84 10:37:000.1[facility] HermannHEMATOLOGY 2020-08-29 10:37:001+ *ABN*(08/29/20 5:37 AM)[facility] UqdiygwVDNNDBBGVD7695-40-25 10:37:00Not Detected (08/29/20 5:37 AM)[facility] HermannBLOOD BANK RESULTS 2020-08-29 10:37:00Negative (08/29/20 5:37 AM)[facility] HermannCHEM KILYS1474-05-87 10:37:56349Tzzhihoz HermannCHEM FBTSV0666-48-32 10:37:0028[facility] HermannCHEM CYOWA7950-37-69 10:37:001.01[facility] HermannCHEM LAICI0998-13-26 10:37:59975 [facility]annCHEM SRESF9179-56-75 10:37:003.8[facility] HermannCHEM PANEL 2020-08-29 10:37:50164Fpkyckpe HermannCHEM QFEGS1171-58-68 10:37:0028[facility] HermannCHEM DULTJ4459-36-94 10:37:009.8[facility] HermannCHEM JXHFT0160-70-73 10:37:0011.8[facility] HermannCHEM GQOEF7256-75-66 10:37:0059[facility] HermannCHEM SYYEM5717-64-61 10:37:002.9[facility] LlnnaixGSHPBKZWLJ9300-89-70 10:37:006.8 [facility] KlltqceCBJTFLQWUJ3882-06-91 10:37:004.47[facility] HermannHEMATOLOGY 2020-08-29 10:37:0010.6[facility] KgikgbcZLAYCOQZER7246-72-89 10:37:0034.0[facility] IsjlzdzBCICIJUBOI4078-77-81 10:37:0076.1[facility] NxguiceCABQQOMCYY2353-49-23 10:37:00 Test Item Value Reference Range Interpretation Comments MCH (test code = MCH) 23.8 pg 27.0-31.0 [facility] DqbjvbeNAXKFNYVRC1199-96-27 10:37:0031.3[facility] HermannHEMATOLOGY 2020-08-29 10:37:0018.2[facility] NwqabxjFXQNTOUTPQ5295-51-33 10:37:46951Ioansrrh BvwsrpoNXULYYBBKK9843-76-04 10:37:007.5[facility] YntknoxYXZXEGHLMW3758-24-32 10:37:00 Test Item Value Reference Range Interpretation Comments PT (test code = PT) 12.8 s 12.0-14.7 [facility] TzmbsxeIUIGQRYPPA9472-24-68 10:37:00 Test Item Value Reference Range Interpretation Comments INR (test code = INR) 0.97 1 0.85-1.17 [facility] LwladrzTQMSLVZDTV9725-23-93 10:37:00 Test Item Value Reference Range Interpretation Comments PTT (test code = PTT) 25.0 s 22.9-35.8 [facility] NqgulurZLRSBBWRTS1260-85-54 10:37:0070.5[facility] HermannHEMATOLOGY 2020-08-29 10:37:0018.8[facility] CqlskthVZIFAYPHFZ6771-71-00 10:37:009.5[facility] YfzlwjeSUKALAWMTA3152-46-28 10:37:000.9[facility] EihwkrcWSIHKFTDEJ8840-83-87 10:37:000.3[facility] LnxgefqUQZUJQZHIY3879-15-21 10:37:004.8[facility] AWDWCOJLMN2523-53-77 10:37:001.3[facility] UbnklpiVHGVIONCAX6612-16-98 10:37:000.6 [facility] QltaysbOUOXBCQKJO3986-68-68 10:37:000.1[facility] HermannHEMATOLOGY 2020-08-29 10:37:001+ *ABN*(08/29/20 5:37 AM)[facility] AesdazvNAPQSCIALN3252-69-52 10:37:00Not Detected (08/29/20 5:37 AM)[facility] HermannBLOOD BANK RESULTS 2020-08-29 10:37:00Negative (08/29/20 5:37 AM)[facility] HermannCHEM ZEIIA3192-98-33 10:37:17357Fyxexrkl HermannCHEM VNHFY8854-51-19 10:37:0028[facility] HermannCHEM PNHSF8846-14-45 10:37:001.01[facility] HermannCHEM XAKYP8080-64-58 10:37:62144 [facility]annCHEM AQYZG8185-91-50 10:37:003.8[facility] HermannCHEM PANEL 2020-08-29 10:37:56690Csmuhboo HermannCHEM BZQTV8898-03-71 10:37:0028[facility] HermannCHEM QMOYD3964-24-02 10:37:009.8[facility] HermannCHEM OGARI4809-56-55 10:37:0011.8[facility] HermannCHEM NPZRB4452-38-24 10:37:0059[facility] HermannCHEM VQSOY4942-09-33 10:37:002.9[facility] IbtpirdRQTZBGZORZ5246-30-50 10:37:006.8 [facility] CijuxpoXOVBBKUEZZ4573-54-54 10:37:004.47[facility] HermannHEMATOLOGY 2020-08-29 10:37:0010.6[facility] MghhiofRSRTJQRFAB8791-04-03 10:37:0034.0[facility] NjoczsfHKJQTPHVON2823-04-64 10:37:0076.1[facility] KilzpdbPYYUUPYRDU3824-40-08 10:37:00 Test Item Value Reference Range Interpretation Comments MCH (test code = MCH) 23.8 pg 27.0-31.0 [facility] CbzbicwWVBFHSMCEK0760-72-31 10:37:0031.3[facility] HermannHEMATOLOGY 2020-08-29 10:37:0018.2[facility] PgxflltLXPPDGGBYY1683-07-66 10:37:95050Uqkidgzq CltofucTKSFJDPKEK9459-85-49 10:37:007.5[facility] XpyfrhsHEMBJPTHNM6949-98-01 10:37:00 Test Item Value Reference Range Interpretation Comments PT (test code = PT) 12.8 s 12.0-14.7 [facility] ZrzioezMXILWOZQZK3208-96-81 10:37:00 Test Item Value Reference Range Interpretation Comments INR (test code = INR) 0.97 1 0.85-1.17 [facility] FsdjpyhRDGCUWHXDB6703-26-45 10:37:00 Test Item Value Reference Range Interpretation Comments PTT (test code = PTT) 25.0 s 22.9-35.8 [facility] LozodlsOOOMUPZLJV7421-38-67 10:37:0070.5[facility] HermannHEMATOLOGY 2020-08-29 10:37:0018.8[facility] VoircujPCPIBULCCM4985-59-44 10:37:009.5[facility] KwjnmjiXQYEAMMOQG7008-98-61 10:37:000.9[facility] CcmajuvWDDFSVUYVA5434-19-00 10:37:000.3[facility] WzkchaxTHIUMQYRAN8742-41-92 10:37:004.8[facility] TTYKVVMONC4160-49-86 10:37:001.3[facility] LbkmsiwVDTIDAXZNO0651-13-66 10:37:000.6 [facility] JewouroBVYGZKYHVP9315-21-61 10:37:000.1[facility] HermannHEMATOLOGY 2020-08-29 10:37:001+ *ABN*(08/29/20 5:37 AM)[facility] BaurnysIBFDCOUTUO4397-50-04 10:37:00Not Detected (08/29/20 5:37 AM)[facility]CHLAMYDIA, GC, TV,PCR, IN WWLVG8657-40-17 15:38:00 Test Item Value Reference Range Interpretation Comments FT (test code = CHTR) Not detected (qualifier Not Detected N value) FT (test code = Not detected (qualifier Not Detected N NGONO) value) FT (test code = TRVG) Not detected (qualifier Not Detected N value) [facility] WITH GIUMCJIKOBT7131-14-75 10:57:00 Test Item Value Reference Range Interpretation Comments Color (test code = UCOLR) Dk. Yellow Clarity (test code = UCLAR) Hazy Glucose (test code = UGLUC) NEGATIVE NEGATIVE N Bilirubin (test code = UBILI) NEGATIVE NEGATIVE N Ketones (test code = UKET) NEGATIVE NEGATIVE N Specific [place] (test code = 1.025 1.005-1.030 A USPGR) [...] None Seen None Seen N URCRYS) [facility]"
--- NOTE | 2023-02-27 09:24 | RAD REPORT ---
EXAM DESCRIPTION: US - UPPER EXTREMITY VENOUS UNILATE - 02/27/2023 9:17 am CLINICAL HISTORY: Pain COMPARISON: None. TECHNIQUE: Real-time sonographic evaluation of the right upper extremity deep venous system was perf ormed. FINDINGS: Normal compressibility, flow augmentation, phasic flow and spontaneous flow is identified in the right upper extremity deep venous system. No intraluminal filling defects seen. IMPRESSION: No DVT in the right upper extremity.
--- NOTE | 2023-02-27 09:37 | EDPHYS ---
Physician Documentation [facility] Name: Marjan Kolb Age: 68 yrs Sex: Female : 1955 Arrival Date: 02/27/2023 Time: 08:08 Bed 5 Private MD: ED Physician Ramon Baker HPI: 02/27 08:25 This 68 yrs old Female presents to ER via Ambulatory with complaints of Arm Pain. 08:25 The complaints affect the right bicep. Context: The problem was sustained at the [facility], resulted from IV attempt. Onset: The symptoms/episode began/occurred 1 week(s) ago. Treatment prior to arrival includes: no previous treatment. Modifying factors: The symptoms are alleviated by nothing. the symptoms are aggravated by nothing. Associated signs and symptoms: Pertinent positives: pain, swelling, ecchymosis. Severity of symptoms: At their worst the symptoms were mild, moderate, in the emergency department the symptoms are unchanged. The patient has not experienced similar symptoms in the past. The patient has been recently seen at the [facility] Emergency Department, yesterday, for similar complaints. Pt presents for continued/worsening pain to right upper extremity that started after IV placement attempt one week ago. . Historical: - Allergies: 08:19 Azithromycin; ll1 08:19 Bactrim; ll1 08:19 butorphanol; ll1 08:19 Fentanyl; ll1 08:19 Reglan; ll1 08:19 Sulfa (Sulfonamide Antibiotics); ll1 08:19 TRIMETHOPRIM; ll1 - PMHx: 08:19 angina pectoris; Anxiety; Atrial fibrillation; Bipolar disorder; esophageal varicies; ll1 Hepatitis; HIV positive; Hypertensive disorder; Migraine; panic attack; - PSHx: 08:19 Appendectomy; Cholecystectomy; ll1 - Immunization history:: Adult Immunizations up to date. - Social history:: Smoking status: Patient/guardian denies using tobacco, the patient reports quitting approximately 4 years ago. ROS: 08:27 Constitutional: Negative for fever, chills, and weight loss, kb 08:27 MS/extremity: Positive for pain, of the right bicep, 08:27 Skin: Positive for ecchymosis, swelling, of the right bicep, 08:27 All other systems are negative, Exam: 08:27 Constitutional: This is a well developed, well nourished patient who is awake, alert, kb and in no acute distress. Head/Face: Normocephalic, atraumatic. ENT: Moist Mucous membranes Cardiovascular: Regular rate Respiratory: Respirations even and unlabored. No increased work of breathing. Talking in full sentences MS/ Extremity: Pulses equal, no cyanosis. Neurovascular intact. Full, normal range of motion. Neuro: Awake and alert, GCS 15, oriented to person, place, time, and situation. Moves all extremities. Normal gait. 08:27 Skin: Appearance: normal except for affected area, ecchymosis, noted on the, right bicep, that are mild, that are moderate, of the right bicep, Vital Signs: 08:19 BP 229 / 127; Pulse 74; Resp 17; Temp 97.8; Pulse Ox 100% on R/A; Weight 86.18 kg; ll1 Height 5 ft. 4 in. ; Pain 10/10; 09:32 BP 179 / 107; Pulse 75; Resp 17; Pulse Ox 99% ; Pain 10/10; nj1 08:19 Body Mass Index 32.61 (86.18 kg, 162.56 cm) ll1 08:19 Pain Scale: Adult ll1 09:32 Pain Scale: Adult nj1 MDM: 08:11 Patient medically screened. kb 08:28 Differential diagnosis: dvt, thrombophlebitis, cellulitis, hematoma. Data reviewed: vital signs, nurses notes. 09:35 Counseling: I had a detailed discussion with the patient and/or guardian regarding the kb historical points, exam findings, and any diagnostic results supporting the discharge/admit diagnosis, radiology results, the need for outpatient follow up, a family practitioner, to return to the emergency department if symptoms worsen or persist or if there are any questions or concerns that arise at home. 02/27 08:18 Order name: US Extremity Venous Unilateral Ltd kb 02/27 08:21 Order name: UPPER EXTREMITY VENOUS UNILATE; Complete Time: : EDMS 02/27 09:28 Order name: Vital Signs; Complete Time: :33 kb Administered Medications: :28 Drug: HydrALAZINE PO 25 mg PO once Route: PO; nj1 09:33 Follow up: Response: No adverse reaction; Blood pressure is lowered nj1 08:28 Drug: Acetaminophen PO 1000 mg PO once Route: PO; nj1 09:33 Follow up: Response: No adverse reaction nj1 Disposition: 09:53 Co-signature as Attending Physician, Ramon Baker MD I reviewed the patient's care rn provided by the Advanced Practice Provider and agree with the diagnosis and treatment plan. Disposition Summary: 02/27/23 09:36 Discharge Ordered Notes: Location: Home kb Condition: Stable kb Diagnosis - Pain in right upper arm kb Followup: kb - With: Emergency Department - When: As needed - Reason: Worsening of condition Followup: kb - With: Private Physician - When: 2 - 3 days - Reason: Recheck today's complaints, Continuance of care, Re-evaluation by your physician Discharge Instructions: - Discharge Summary Sheet kb - Hematoma, [id number] kb Forms: - Medication Reconciliation Form kb - Thank You Letter kb - Antibiotic Education kb - Prescription Opioid Use kb - Patient Portal Instructions kb - Leadership Thank You Letter kb Signatures: Dispatcher [employer] EDRosemary Turner, PHOTOVOLTAIC TECHNICIAN-C PHOTOVOLTAIC TECHNICIAN-Ckb Ramon Baker MD MD rn Lewis, Lynsay RN RN 1 Aracely Sims RN RN nj1
--- NOTE | 2023-02-27 09:37 | ER ---
Nurse's Notes [facility] Name: Marjan Kolb Age: 68 yrs Sex: Female : 1955 Arrival Date: 02/27/2023 Time: 08:08 Bed 5 Private MD: Diagnosis: Pain in right upper arm Presentation: 02/27 08:19 Chief complaint: Patient states: R arm pain/swelling for 1 week. Site just isn't better ll1 yet. Coronavirus screen: Vaccine status: Patient reports receiving the 2nd dose of the covid vaccine. Client denies travel out of the [place] in the last 14 days. At this time, the client does not indicate any symptoms associated with coronavirus-19. Ebola Screen: Patient denies travel to an Ebola-affected area in the 21 days before illness onset. Initial Sepsis Screen: Does the patient meet any 2 criteria? No. Patient's initial sepsis screen is negative. Does the patient have a suspected source of infection? Yes: Skin breakdown/wound. Risk Assessment: Do you want to hurt yourself or someone else? Patient reports no desire to harm self or others. Onset of symptoms was February 20, 2023. 08:19 Method Of Arrival: Ambulatory ll1 08:19 Acuity: BLAYNE 3 ll1 Triage Assessment: 08:20 General: Appears uncomfortable, Behavior is calm, cooperative, appropriate for age. ll1 Pain: Complains of pain in right arm Pain currently is 10 out of 10 on a pain scale. Quality of pain is described as aching, throbbing. Derm: Bruising that is dark purple. Musculoskeletal: Circulation, motion, and sensation intact. Capillary refill < 3 seconds. Historical: - Allergies: 08:19 Azithromycin; ll1 08:19 Bactrim; ll1 08:19 butorphanol; ll1 08:19 Fentanyl; ll1 08:19 Reglan; ll1 08:19 Sulfa (Sulfonamide Antibiotics); ll1 08:19 TRIMETHOPRIM; ll1 - PMHx: 08:19 angina pectoris; Anxiety; Atrial fibrillation; Bipolar disorder; esophageal varicies; ll1 Hepatitis; HIV positive; Hypertensive disorder; Migraine; panic attack; - PSHx: 08:19 Appendectomy; Cholecystectomy; ll1 - Immunization history:: Adult Immunizations up to date. - Social history:: Smoking status: Patient/guardian denies using tobacco, the patient reports quitting approximately 4 years ago. Screenin:30 [facility] ED Fall Risk Assessment (Adult) Score/Fall Risk Level 0 - 2 = Low Risk nj1 Oriented to surroundings, Maintained a safe environment, Hourly rounding (assess needs \T\ fall precautionary measures) done. Abuse screen: Denies threats or abuse. Denies injuries from another. Nutritional screening: No deficits noted. Tuberculosis screening: No symptoms or risk factors identified. Assessment: 08:30 Reassessment: See triage assessment. Oxygen placed on patient per her request, states nj1 she uses 2 LPM at home. 09:32 Reassessment: Patient appears in no apparent distress at this time. Patient and/or nj1 family updated on plan of care and expected duration. Pain level reassessed. Patient is alert, oriented x 3, equal unlabored respirations, skin warm/dry/pink. Vital Signs: 08:19 BP 229 / 127; Pulse 74; Resp 17; Temp 97.8; Pulse Ox 100% on R/A; Weight 86.18 kg; ll1 Height 5 ft. 4 in. ; Pain 10/10; 09:32 BP 179 / 107; Pulse 75; Resp 17; Pulse Ox 99% ; Pain 10/10; nj1 08:19 Body Mass Index 32.61 (86.18 kg, 162.56 cm) ll1 08:19 Pain Scale: Adult ll1 09:32 Pain Scale: Adult banner ED Course: 08:11 Patient arrived in ED. rg4 08:11 Rosemary Cespedes FNP-C is [facility]. kb 08:11 Ramon Baker MD is Attending Physician. kb 08:14 Aracely Sims, ASHLEY is Primary Nurse. nj1 08:18 Arm band placed on Patient placed in an exam room, on a stretcher. ll1 08:20 Triage completed. ll1 08:30 Oxygen administration via nasal cannula \T\ 2L/min. nj1 08:31 Patient has correct armband on for positive identification. Bed in low position. Call banner light in reach. Side rails up X 1. Provided Education on: call light, fall precautions. 09:18 UPPER EXTREMITY VENOUS UNILATE In Process Unspecified. EDMS 09:46 No provider procedures requiring assistance completed. Patient admitted, IV remains in hb place. Administered Medications: 08:28 Drug: HydrALAZINE PO 25 mg PO once Route: PO; nj1 09:33 Follow up: Response: No adverse reaction; Blood pressure is lowered nj1 08:28 Drug: Acetaminophen PO 1000 mg PO once Route: PO; nj1 09:33 Follow up: Response: No adverse reaction nj1 Medication: 08:33 VIS not applicable for this client. nj1 Outcome: 09:36 Discharge ordered by . claudia 09:46 Discharged to home ambulatory, 09:46 Condition: stable 09:46 Discharge instructions given to patient, Instructed on discharge instructions, follow up and referral plans. medication usage, Demonstrated understanding of instructions, follow-up care, medications, 09:46 Patient left the ED. Signatures: Dispatcher [employer] EDRosemary Turner, 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 REGISTERED NURSE-C 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 REGISTERED NURSE-CkTata Wong RN RN Polina Camarillo rg4 Yanira De Jesus RN RN ll1 Aracely iSms RN RN nj1 Corrections: (The following items were deleted from the chart) 08:34 08:30 Reassessment: See triage assessment. nj1 nj1
[2023-02-27 09:59] VITALS: TEMP 97.8
[2023-02-27 10:00] VITALS: BP 179/107; O2SAT 99
== END 2023-02-27 09:46 | disposition home or self-care (01) ==
LOC: ER 08:08
DX: M79.621 Pain in right upper arm (principal); Z21 Asymptomatic human immunodeficiency virus [HIV] infection status
CPT/HCPCS: 93971; 99284

== ENCOUNTER 2023-03-25 15:04 | Emergency (ER) | payer OTHER ==
--- OUTSIDE RECORDS SUMMARY | 2023-03-25 15:49 | XMS REPORT | Continuity of Care Document ---
:[address] [facility] t Address [address] [facility] [address] [place] [address] Support Name Relationship Address Phone Jose Muniz Child [address] [place] [address] Bharat Dean Spouse [id number] [place] [address] Bharat Dean Spouse [address] [facility] [phone] [place] [address] CHINO MUNIZIANA Unavailable [address] [facility] [phone] [place] [address] JOSE MUNIZ CH [address] [facility] [address] [place] [address] UNK, UNK SELF . [phone] . RABIA MUNIZ DA X [phone] [place] [address] NONE, GIVEN OT X [phone] [place] [phone] Bharat Dean Spouse [address] [place] [id number] Jose Dean Daughter Unavailable [phone] JOSE MUNIZ Relative [address] [facility] Unav[address]a ble [address] [place] [address] BHARAT DEAN Spouse [address] Unavailable [place] [id number] BHARAT DEAN RAY X [address] [facility] [address] [place] [address] Ray Bharat Dean Spouse [address] [facility] [address] [phone] [place] [address] Care Team Providers Name Role Phone Urmila Rahman Primary Care Physician ELAN LIRA Attending Clinician Unavailable BEVERLY LAYTON Attending Clinician Unavailable SANTIAGO CARDENAS Attending Clinician Unavailable [email or web address] Attending Clinician Unavailable Neelima Tripp RN Attending Clinician Unavailable Go Russell DO Attending Clinician Lm Abbott MD Attending Clinician [facility] Attending Clinician Unavailable Santiago Sanchez Attending Clinician Doctor Unassigned, [place] Attending Clinician Unavailable Bill COLES Attending Clinician Unavailable Bill Rose Attending Clinician HOME MATTHEWS Attending Clinician Unavailable Home Santamaria Attending Clinician THERESA HICKMAN Attending Clinician Unavailable Theresa Hickman DO Attending Clinician ANETTE OLEA Attending Clinician Unavailable Anette Olea MD Attending Clinician PAULETTE GRAY Attending Clinician Unavailable Paulette Galvan Attending Clinician UNKNOWN, ATTENDING Attending Clinician Unavailable Robbi Bal R Attending Clinician Isaias Whiteside RN Attending Clinician Unavailable TOMY MARIE Attending Clinician Unavailable Reilly Means MD Attending Clinician Ofe Shields MD Attending Clinician Tomy Marie MD Attending Clinician CHARITY MCALLISTER Attending Clinician Unavailable Charity Mcallister MD Attending Clinician GADIEL KOEHLER Attending Clinician Unavailable Mike Lund Attending Clinician Unavailable NIKOLAI REEVES Attending Clinician Unavailable Eliseo Arce MD Attending Clinician Carol Ann IZQUIERDO, Sarai Lieberman Attending Clinician [phone] Ashly Pelletier MA Attending Clinician Unavailable Dagoberto Bass MD Attending Clinician Ebrahim MARKETING TRAFFIC MANAGER, [place] Attending Clinician Lab, [facility] Pob I Attending Clinician Unavailable Clark SANCHEZ, Monica Attending Clinician Unavailable Diana SANCHEZ, Agustina Attending Clinician Unavailable Andrez RAMIREZ, Rody Attending Clinician Unavailable Remigio JENKINS, Kirit Barnes Attending Clinician HEMATPOUR, BEVERLY Attending Clinician Unavailable Caridadsyed HUITRONP, Gloria Attending Clinician Xiao RAMIREZ, Michael Corbin Attending Clinician Unavailable Vani, [facility] Attending Clinician UnavailDO PORSHA Newell Attending Clinician Unavailable Rodo JENKINS, Gadiel Attending Clinician Tyrone JENKINS, Eveline Sierra Attending Clinician Stanislav RAMIREZ, Eladio Inman Attending Clinician Unavailable Geraldine HUITRONP, Leyda Attending Clinician [phone] Stefanie Montalvo RN Attending Clinician Unavailable [email or web address]_S Admitting Clinician Unavailable Scar JENKINS, Lm Ardon Admitting Clinician Bill COLES Admitting Clinician Unavailable HOME MATTHEWS Admitting Clinician Unavailable ANETTE OLEA Admitting Clinician Unavailable TOMY MARIE Admitting Clinician Unavailable Frank JENKINS, Tomy Admitting Clinician Lele Rahman Admitting Clinician Unavailable Mike Lund Admitting Clinician Unavailable ELISEO ARCE Admitting Clinician Unavailable DO PORSHA STREETER Admitting Clinician Unavailable Payers Payer Name Policy Type Policy Number Effective Date Expiration Date S ourana [facility] [id number] 2012 STAR PLUS OON 00:00:00 [facility] [id number] 2019 DUAL COMPLETE HMO 00:00:00 [facility] STAR [id number] 2019 PLUS 00:00:00 [facility] [id number] 2019 [facility] [place] STAR 00:00:00 [employer] MEDICARE ADV [id number] 2019 2019 00:00:00 00:00:00 Problems Condition Condition Condition Status Onset Resolution Last Treating Co mments Source Name Details Category Date Date Treatment Clinician Date Chest Chest Disease Active 2022-05 Univers pain, pain, 0-25 ity of unspecifie [place] d type d type 00 Medical Branch Dyspnea, Dyspnea, Disease Active Unive rs unspecifie unspecifie 9- it y of d type d type 00:00: Medical Branch Gastropare Gastropare Disease Active Overview : Methodi sis sis 4-[address] 00:00: [facility] 00 note l might be different from the original. Added automatic ally from request for surgery [id number] Dysphagia Dysphagia Disease Active Overview: Methodi 4-[address] 00:00: g of this [facility]osp[facility] 00 note l might be different from the original. Added automatic ally from request for surgery [id number] CCL / EPS CCL / EPS Diagnosis Active 2020-10-15 Memoria PVI PVI 3-30 17:07:00 l ABLATION ABLATION 00:00: Patel n W/ CARTO / W/ CARTO / 00 GA / T GA / T Active 08/19/2020 [facility] Food Food Disease Active 2019-05 Methodi intoleranc [...] (BMI 2-19 ity of 30-39.9) 30-39.9) 00:00: [place] [facility] Anemia Anemia Disease Active 2014-05 Univers 0-03 ity of 00:00: [place] [facility] Hypovolemi Hypovolemi Disease Active 2014-05 U nivers a due to a due to 0-02 ity of hemorrhage hemorrhage 00:00: [place] [facility] [place] Chest pain Chest pain Disease Active 2014-05 U nivers 0-02 ity of 00:00: [place] [facility] 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:00: [place] shoulder shoulder 00 Medica l arthroplas arthroplas Br anch ty ty Posttrauma Posttrauma Disease Active U nivers tic stress tic stress 09-27 it y of disorder disorder 00:00: Medical Branch 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 00:00: [place] virus virus Medical (HIV) (HIV) Branch disease [...] hoxazole 1-25 Clear 00:00: [facility] trimetho DA Active SV [facility] prim 1-25 Clear 00:00: [place] [facility] codeine DA Active SV N/V [facility] 1-25 Clear 00:00: [place] [facility] Metoclop Propensi Active [place] ramide ty to 7 Health adverse 00:00: reaction 00 s BUTORPHA DRUG Active Unknown-Cmnt Un matt NOL INGREDI 11-25 ity of 00:00: [place] [facility] Butorpha Drug Active Unknown - [...] s to drug Butorpha Propensi Active Hallucinatio 2019- Methodi nol ty to ns 2-04 st adverse 00:00: Hospita reaction 00 l s to drug Fentanyl Allergy Active Unknown 2018 Other [place] to 06-30 reaction( Health substanc 00:00: s): e 00 HivesUnkn own reactionU nknown reactionU nknown reactionU nknown reactionU nknown reaction FENTANYL DRUG Active High Hives 2017-0 Univers INGREDI 2-08 ity of 00:00: [place] 00 Medical Branch TRIMETHO DRUG Active Hives 2018-0 Univers PRIM INGREDI 2- ity of 00:00: [place] 00 Medical Branch Fentanyl Drug Active Other - See Unknown Un matt Allergy comments 06-30 reaction ity o f 00:00: [place] 00 Medical Branch Trimetho Propensi Active Hives 2018 Univer s prim ty to 06-30 ity of adverse 00:00: [place] reaction 00 Medical s Branch Metoclop Propensi Active 2017 Method i ramide ty to 09-23 st [...] Branch drug Bactrim Bactrim Active Memoria l [place] Family History Family Member Diagnosis Comments Start Date Stop Date Source Natural father Diabetes [facility] Natural father Other - see comments [facility] Natural [facility] father [facility] mother [facility] Social History Social Habit Start Date Stop Date Quantity Comments Source Gender identity [facility] History SDOH [facility] Alcohol Frequency Hospita l History SDOH [facility] Alcohol Std Drinks Hospit al History SDOH [facility] Sexual orientation [facility] Exposure to 2022-04-30 2022-05-10 Yes University of SARS-CoV-2 (event) 00:00:00 10:25:00 [facility] Tobacco use and 2022-02-11 2022-02-11 Former smokeless Uni versity of exposure 00:00:00 00:00:00 tobacco user [facility] Tobacco Comment 2022-02-11 2022-02-11 Smokes approx 1-2 Un iversity of 00:00:00 00:00:00 cigarettes per [facility] day when she Branch smokes Alcohol intake 2020-12-08 2020-12-08 Current drinker [facility] 00:00:00 00:00:00 of alcohol [facility] (finding) History of Social 2020-12-08 2020-12-[address] function 00:00:00 00:00:00 Hospital Cigarettes smoked 2020-09-05 2020-09-[address] current (pack per 00:00:00 00:00:00 Hospita l day) - Reported Cigarette 2020-09-05 2020-09-05 [facility] pack-years 00:00:00 00:00:00 Hospital Alcohol Comment 2016-09-23 2016-09-23 rare [facility] 00:00:00 00:00:00 Hospital History of tobacco 2011-09-29 User of smokeless University of use 00:00:00 tobacco [facility] Sex Ass[birth year] At [birth year] [facility] 00:00:00 00:00:00 Smoking Status Start Date Stop Date Source Ex-smoker 2022-02-11 00:00:00 2022-02-11 00:00:00 [facility] Medications Ordered Filled Start Stop Current Ordering Indication Dosage Frequency Signature Comments Components Source Medication Medication Date Date Medication? Clinician (SIG) Name Name berta 2022-05 Yes 80mg 80 mg, Univ ers n (LIPITOR) 0-27 Oral, QHS, it y of tablet 80 02:00: [place] mg 00 (after Medical last Branch modificati on) on [place] 03/17/23 at 2100, Until Discontinu ed, Routine furosemide 2022-05 Yes [id number] 40mg Take 1 U nivers 40 mg 0-27 tablet by ity of tablet 00:00: mouth in [place] 00 the Medical morning. Branch diltiazem 2022-05 Yes [id number] 180mg Take 1 U nivers XR 180 mg 0-27 capsule by ity of 24 hr 00:00: mouth in [facility] 00 the Medical morning. Branch furosemide 2022-05 Yes [id number] 40mg Take 1 U nivers 40 mg 0-27 tablet by ity of tablet 00:00: mouth in [place] 00 the Medical morning. Branch diltiazem 2022-05 Yes [id number] 180mg Take 1 U nivers XR 180 mg 0-27 capsule by ity of 24 hr 00:00: mouth in [facility] 00 the Medical morning. Branch amLODIPine 2022-05 Yes 10mg Take 10 mg U nivers (NORVASC) 0-26 by mouth ity of 10 mg 19:16: daily. [facility] 32 Medical Branch clonazePAM 2022-05 Yes 1mg Take 1 mg Un matt (KLONOPIN) 0-26 by mouth ity o f 1 mg tablet 19:16: at [place] [address] bedtime. Medical Branch traZODone 2022-05 Yes 50mg Take 50 mg Un matt 100 mg 0-26 by mouth ity of tablet 19:16: at [place] [address] bedtime. Medical Branch amLODIPine 2022-05 Yes 10mg Take 10 mg U nivers (NORVASC) 0-26 by mouth ity of 10 mg 19:16: daily. [place] tablet 32 Medical Branch clonazePAM 2022-05 Yes 1mg Take 1 mg Un matt (KLONOPIN) 0-26 by mouth ity o f 1 mg tablet 19:16: at [place] [address] bedtime. Medical Branch traZODone 2022-05 Yes 50mg Take 50 mg Un matt 100 mg 0-26 by mouth ity of tablet 19:16: at [place] [address] bedtime. Medical Branch hydrALAZINE 2022-05 Yes 50mg 50 mg, Univ ers (APRESOLINE 0-26 Oral, TID, it y of ) tablet 50 19:00: First dose [place] mg 00 (after Medical last Branch modificati on) on [facility] 03/17/23 at 1400, Until Discontinu ed, Routine diltiazem 2022-05 Yes 180mg 180 mg, Univ ers XR 0-26 Oral, ity of (DILT-XR) 16:00: DAILY, [place] capsule 180 00 First dose Me dical mg (after Branch last modificati on) on [facility] 03/17/23 at 1100, Until Discontinu ed, Routine sulfur 2022-05- No [id number] 5mL 5 mL, Unive rs hexafluorid 003-17 Intravenou i ty of e microsphr 15:15: 15:15 s, ONCE, 1 [place] (LUMASON) 00 :00 dose, On Medica l injection 5 [place] Branch mL 03/17/23 at 1015, Routine
bakery team member approving Restricted medication : ASHLEY GREEN KCL 2022-05- No 40meq 40 mEq, Univers (KLOR-CON 0-17 03- Oral, ity of M20) tablet 15:00: 15:47 ONCE, 1 [place] 40 mEq 00 :00 dose, On Medical [place] Branch 03/17/23 at 1000, Routine furosemide 2022-05 Yes 40mg 40 mg, Unive rs (LASIX) 0-26 Oral, ity of tablet 40 14:00: DAILY, [place] mg 00 First dose Medical on [facility] Branch 03/17/23 at 0900, Until Discontinu ed, Routine amLODIPine 2022-05 Yes 10mg 10 mg, Unive rs (NORVASC) 0-26 Oral, ity of tablet 10 14:00: DAILY, [place] mg 00 First dose Medical on [facility] Branch 03/17/23 at 0900, Until Discontinu ed, Routine pantoprazol 2022-05 Yes 40mg 40 mg, Univ ers e 0-26 Oral, ity of (PROTONIX) 14:00: DAILY, [place] EC tablet 00 First dose Medi porfirio 40 mg on [facility] Branch 03/17/23 at 0900, Until Discontinu ed, Routine enoxaparin 2022-05 Yes 40mg 40 mg, Unive rs (LOVENOX) 0-26 Subcutaneo ity of injection 14:00: us, DAILY, [place] 40 mg 00 First dose Medical on [facility] Branch 03/17/23 at 0900, Until Discontinu ed, Routine emtricitabi 2022-05 Yes 1{tbl} 1 tablet, [facility] ne-tenofovi 0-26 Oral, ity of r alafen 14:00: DAILY, [place] (DESCOVY) 00 First dose Medi porfirio tablet 1 on [facility] Branch tablet 03/17/23 at 0900, Until Discontinu ed, Routine SERTraline 2022-05 Yes 200mg 200 mg, Uni vers (ZOLOFT) 0-26 Oral, ity of tablet 200 14:00: DAILY, [place] mg 00 First dose Medical on [facility] Branch 03/17/23 at 0900, Until Discontinu ed, Routine buPROPion 2022-05 Yes 150mg 150 mg, Univ ers XL 0-26 Oral, ity of (WELLBUTRIN 14:00: DAILY, [place] XL) tablet 00 First dose Med ical 150 mg on [facility] Branch 03/17/23 at 0900, Until Discontinu ed, Routine hydralAZINE 2022-05 No 25mg Take 1 Uni vers (APRESOLINE 0-26 10-26 tablet by it y of ) 25 mg 13:10: 00:00 mouth in [place] tablet 02 :00 the Medical morning. Branch metoprolol 2023-1 2023- No 100mg Take 1 Uni vers tartrate 03-17 tablet by itcharlie o f (LOPRESSOR) 13:10: 00:00 mouth in [place] 100 mg 02 :00 the Medical tablet morning Branch and 1 tablet in the evening. raltegravir 2022-05 Yes 400mg 400 mg, Un matt (ISENTRESS) 0 Oral, BID, it y of tablet 400 13:00: First dose [place] mg 00 on Tue [facility] 03/17/23 Branch at 0800, Until Discontinu ed, JOE potassium 2022-05- No 20meq 20 mEq, IV Univers chloride in 03-17 Piggyback, i ty of water (KCL) 12:45: 14:04 ONCE, 1 [place] 20 mEq/100 00 : dose, On Medic al mL RTU IVPB [facility] 20 mEq 03/17/23 at 0745, 100 mL hydrALAZINE 2022-05- No 25mg 25 mg, Uni vers (APRESOLINE 03-17 Oral, ONCE i ty of ) tablet 25 05:15: 04:29 NOW, 1 [place] mg 00 :00 dose, On Medical [place] Branch 03/17/23 at 0015, JOE melatonin 2022-05 Yes 3mg 3 mg, Univers (MELATIN) Oral, QHS, ity of tablet 3 mg 04:45: First dose [place] 00 on Tue [facility] 03/16/23 Branch at 2345, Until Discontinu ed, Routine nitroglycer 2022-05 Yes .4mg 0.4 mg, Uni vers in Sublingual ity of (NITROSTAT) 04:30: , Q5MIN [place] sublingual 21 PRN, Medical tablet 0.4 Starting Branc h mg on Tue03/16/23 at 2330, Until Discontinu ed, Routine, Chest pain acetaminoph 2022-05 Yes 650mg 650 mg, Un matt en Oral, ity of (TYLENOL) 04:29: Q6HPRN, [place] tablet 650 41 Starting Medic al mg on Tue Branch 03/16/23 at 2329, Until Discontinu ed, Routine, Pain (scale 1-3) albuterol 2022-05 Yes 2{puff} 2 Puff, Un matt (VENTOLIN) 0-26 Inhalation ity of inhaler 2 04:26: , Q4HPRN, [place] Puff 37 Starting Medical on Tue Branch 03/16/23 at 2326, Until Discontinu ed, Routine, Wheezing, Shortness of Breath nitroglycer 2022-05- No .4mg 0.4 mg, Un matt in 0-26 03-17 Sublingual ity of (NITROSTAT) 00:15: 00:11 , ONCE, 1 [place] sublingual 00 :00 dose, On Medic al tablet 0.4 Tue Branch mg 03/16/23 at 1915, JOE nitroglycer 2022-[id number] 1 Univers in 0.4 mg 0-26 tablet ity of sublingual 00:00: under the [place] tablet 00 tongue Medical every 5 Branch (five) minutes as needed for Chest pain. atorvastati 2022-05 Yes [id number] 80mg Take 1 Univers n 80 mg 0-26 tablet by ity of tablet 00:00: mouth at [place] [address] bedtime. Medical Branch hydrALAZINE 2022-05 Yes [id number] 50mg Take 1 Univers 50 mg 0-26 tablet by ity of tablet 00:00: mouth in [place] 00 the Medical morning Branch and 1 tablet at noon and 1 tablet in the evening. nitroglycer 2022-[id number] 1 Univers in 0.4 mg 0-26 tablet ity of sublingual 00:00: under the [place] tablet 00 tongue Medical every 5 Branch (five) minutes as needed for Chest pain. atorvastati 2022-05 Yes [id number] 80mg Take 1 Univers n 80 mg 0-26 tablet by ity of tablet 00:00: mouth at [place] [address] bedtime. Medical Branch hydrALAZINE 2022-05 Yes [id number] 50mg Take 1 Univers 50 mg 0-26 tablet by ity of tablet 00:00: mouth in [place] 00 the Medical morning Branch and 1 tablet at noon and 1 tablet in the evening. LORazepam 2022-05 No .5mg 0.52 mg Univ ers (ATIVAN) 003-17 (rounded ity of injection 23:45: 00:11 from 0.5 [place] 0.52 mg 00 :00 mg), Slow Medical IV Push, Branch ONCE, 1 dose, On 03/16/23 at 1845, JOE furosemide 2022-05- No 20mg 20 mg, Univ ers (LASIX) 0- 10- Slow IV ity of injection 23:45: 00:11 Push, [place] 20 mg 00 :00 ONCE, 1 Medical dose, On Branch [facility] 03/16/23 at 1845, JOE ipratropium 2022-05- No 3mL 3 mL, Univ ers -albuteroL 0-25 10-25 Inhalation it y of (DUONEB) 19:00: 20:44 , ONCE [place] 0.5 mg-3 00 :00 NOW, 1 Medical mg(2.5 mg dose, On Branch base)/3 mL [facility] nebulizer 03/16/23 solution 3 at 1400, mL Routine morpHINE (4 2022-05- No 4mg 4 mg, Slow Univers mg/mL) 0- 10- IV Push, ity of injection 4 18:15: 20:43 ONCE, 1 [place] mg 00 :00 dose, On Medical [facility] Branch 03/16/23 at 1315, STAT ondansetron 2022- No 4mg 4 mg, Slow Univers (ZOFRAN 01-28 IV Push, ity of (PF)) 00:15: 23:13 ONCE, 1 [place] injection 4 00 :00 dose, On Medi porfirio mg [facility] 01/27/23 Branch at 1915, JOE KCL 2022- No 40meq 40 mEq, Univers (KLOR-CON 01-28 Oral, ity of M20) tablet 00:15: 23:13 ONCE, 1 [place] 40 mEq 00 :00 dose, On Medical [facility] 01/27/23 Branch at 191, Routine dicyclomine 2022- No 20mg 20 mg, Uni vers (BENTYL) 01-28 Oral, ity of tablet 20 00:15: 23:13 ONCE, 1 [place] mg 00 :00 dose, On [facility] 01/27/23 Branch at 191, Routine NaCl 0.9% 2022- No 1000mL at 999 Uni vers (NS) bolus 01-27 mL/hr, ity of infusion 23:00: 23:59 1,000 mL, [place] 1,000 mL 00 :00 IV Medical Infusion, Branch ONCE, 1 dose, On [place] 01/27/23 at 1800, STAT ondansetron 2022-0 2022- No 4mg 4 mg, Slow Univers (ZOFRAN 01-27 IV Push, ity of (PF)) 21:00: 21:10 ONCE, 1 [place] injection 4 00 :00 dose, On Medi porfirio mg [place] 01/27/23 Branch at 1600, JOE morpHINE (4 2022- No 4mg 4 mg, Slow Univers mg/mL) 01-27 IV Push, ity of injection 4 21:00: 21:15 ONCE, 1 [place] mg 00 :00 dose, On Medical [place] 01/27/23 Branch at 1600, STAT iopamidol 2022-0 2022- No [id number] 70mL 70 mL, U nivers (ISOVUE 01-27 Intravenou ity o f 370-500 mL) 20:44: 20:45 s, ONCE, 1 [place] injection 00 :00 dose, On Medica l 70 mL [facility] 01/27/23 Branch at 1600, Routine hydralAZINE 2022-2022- No 10mg 10 mg, Uni vers (APRESOLINE 01-27 Slow IV ity of ) injection 20:00: 21:10 Push, [place] 10 mg 00 :00 ONCE, 1 Medical dose, On Branch [facility] 01/27/23 at 1500, JOE ondansetron 2022-0 Yes [id number] 4mg Take 1 Univers 4 mg 9-07 tablet by ity of disintegrat 00:00: mouth [place] ing tablet 00 every 8 Medica l (eight) Branch hours as needed for Nausea and Vomiting (N/V). dicyclomine 3-0 Yes [id number] 20mg Take 1 Univers 20 mg 9-07 tablet by ity of tablet 00:00: mouth 4 [place] 00 (four) Medical times Branch daily. ondansetron 3-0 Yes [id number] 4mg Take 1 Univers 4 mg 9-07 tablet by ity of disintegrat 00:00: mouth [place] ing tablet 00 every 8 Medica l (eight) Branch hours as needed for Nausea and Vomiting (N/V). dicyclomine 2022-0 Yes [id number] 20mg Take 1 Univers 20 mg 9-07 tablet by ity of tablet 00:00: mouth 4 [place] 00 (four) Medical times Branch daily. emtricitabi 2022-0 Yes [id number] Take one Univers ne-tenofovi 6-12 po daily ity of r alafen 00:00: [place] (DESCOVY) 00 Medical tablet Branch raltegravir 2022-0 Yes [id number] 400mg Take 1 Univers (ISENTRESS) 6-12 tablet by ity of 400 mg 00:00: mouth in [place] tablet 00 the Medical morning Branch and 1 tablet in the evening. emtricitabi 2022-0 Yes [id number] Take one Univers ne-tenofovi 6-12 po daily ity of r alafen 00:00: [place] (DESCOVY) 00 Medical tablet Branch raltegravir 2022-0 Yes [id number] 400mg Take 1 Univers (ISENTRESS) 6-12 tablet by ity of 400 mg 00:00: mouth in [place] tablet 00 the Medical morning Branch and 1 tablet in the evening. emtricitabi 2022-0 Yes [id number] Take one Univers ne-tenofovi 6-12 po daily ity of r alafen 00:00: [place] (DESCOVY) 00 Medical tablet Branch raltegravir 2022-0 Yes [id number] 400mg Take 1 Univers (ISENTRESS) 6-12 tablet by ity of 400 mg 00:00: mouth in [place] tablet 00 the Medical morning Branch and 1 tablet in the evening. emtricitabi 2022-0 Yes [id number] Take one Univers ne-tenofovi 6-12 po daily ity of r alafen 00:00: [place] (DESCOVY) 00 Medical tablet Branch raltegravir 2022-0 Yes [id number] 400mg Take 1 Univers (ISENTRESS) 6-12 tablet by ity of 400 mg 00:00: mouth in [place] tablet 00 the Medical morning Branch and 1 tablet in the evening. emtricitabi 2022-0 Yes [id number] Take one Univers ne-tenofovi 6-12 po daily ity of r alafen 00:00: [place] (DESCOVY) 00 Medical tablet Branch raltegravir 2022-0 Yes [id number] 400mg Take 1 Univers (ISENTRESS) 6-12 tablet by ity of 400 mg 00:00: mouth in [place] tablet 00 the Medical morning Branch and 1 tablet in the evening. emtricitabi 2022-0 Yes [id number] Take one Univers ne-tenofovi 6-12 po daily ity of r alafen 00:00: [place] (DESCOVY) 00 Medical tablet Branch raltegravir 2022-0 Yes [id number] 400mg Take 1 Univers (ISENTRESS) 6-12 tablet by ity of 400 mg 00:00: mouth in [place] tablet 00 the Medical morning Branch and 1 tablet in the evening. emtricitabi 2022-0 Yes [id number] Take one Univers ne-tenofovi 6-12 po daily ity of r alafen 00:00: [place] (DESCOVY) 00 Medical tablet Branch raltegravir 2022-0 Yes [id number] 400mg Take 1 Univers (ISENTRESS) 6-12 tablet by ity of 400 mg 00:00: mouth in [place] tablet 00 the Medical morning Branch and 1 tablet in the evening. DESCOVY 2022-0 Yes [id number] Take one Univers tablet 5-08 po daily ity of 00:00: [place] 00 Medical Branch raltegravir 2022-0 Yes [id number] 400mg Take 1 Univers (ISENTRESS) 5-08 tablet by ity of 400 mg 00:00: mouth in [place] tablet 00 the Medical morning Branch and 1 tablet in the evening. DESCOVY 2022-0 2023- No [id number] Take one Univers tablet 5-08 06-12 po daily ity of 00:00: 00:00 [place] 00 :00 Medical Branch raltegravir 2022-0 3- No [id number] 400mg Take 1 Univers (ISENTRESS) 5-08 06-12 tablet by it y of 400 mg 00:00: 00:00 mouth in [place] tablet 00 :00 the Medical morning Branch and 1 tablet in the evening. emtricitabi 2022-0 Yes [id number] Take one Univers ne-tenofovi 4-04 po daily ity of r alafen 00:00: [place] (DESCOVY) 00 Medical tablet Branch emtricitabi 2022-0 Yes [id number] Take one Univers ne-tenofovi 4-04 po daily ity of r alafen 00:00: [place] (DESCOVY) 00 Medical tablet Branch emtricitabi 0 2022- No [id number] Take one Univers kacy-lj 4-04 05-08 po daily ity of r alafen 00:00: 00:00 [place] (DESCOVY) 00 :00 Medical tablet Branch potassium 2021-05 No 10meq 10 mEq, IV [facility] chloride in 07-11 Piggyback, i ty of water 10 20:00: 22:00 ONCE, 1 [place] mEq/100 mL 00 :00 dose, On Medic al RTU 10 mEq [facility] 05/10/22 at 1400, Administer over 60 Minutes, 100 mL magnesium 2021-05 No 800mg 800 mg, Uni vers oxide 07-11 Oral, ity of (MAG-OX 20:00: 19:37 ONCE, 1 [place] 400) tablet 00 :00 dose, On Medi porfirio 800 mg [facility] 05/10/22 at 1400, Routine KCL 2021-05 No 40meq 40 mEq, Univers (KLOR-CON 07-11 Oral, ity of M20) tablet 19:15: 19:37 ONCE, 1 [place] 40 mEq 00 :00 dose, On Medical [facility] 05/10/22 at 1315, JOE hydralAZINE 2021-05 No 10mg 10 mg, Uni vers (APRESOLINE 07-11 Slow IV ity of ) injection 18:45: 18:42 [place] 10 mg 00 :00 ONCE, 1 Medical dose, On Branch [facility] 05/10/22 at 1245, JOE NaCl 0.9% 2021-05 No 1000mL at 999 Uni vers (NS) bolus 07-11 mL/hr, ity of infusion 17:45: 20:00 1,000 mL, [place] 1,000 mL 00 :00 IV Medical Infusion, Branch ONCE, 1 dose, On [facility] 05/10/22 at 1145, JOE cefpodoxime 2021-05- No [id number] 100mg Take 1 [facility] 100 mg 07-09 tablet by ity of tablet 00:00: 05:59 mouth in [place] 00 :00 the Medical morning Branch and 1 tablet in the evening. Do all this for 7 days. cefpodoxime 2021-05- No [id number] 100mg Take 1 [facility] 100 mg 2-17 12-25 tablet by ity of tablet 00:00: 05:59 mouth in [place] 00 :00 the Medical morning Branch and 1 tablet in the evening. Do all this for 7 days. cefpodoxime 2021-05- No [id number] 100mg Take 1 [facility] 100 mg 2-17 12-25 tablet by ity of tablet 00:00: 05:59 mouth in [place] 00 :00 the [facility] morning Branch and 1 tablet in the evening. Do all this for 7 days. butalbital- 2021-05- No 1{tbl} 1 tablet, Univers acetaminoph 2-16 12-15 Oral, ity of en-caff 00:15: 23:19 ONCE, 1 [place] (ESGIC) 00 :00 dose, On Medical 50-325-40 [place] [facility] mg tablet 1 05/06/22 tablet at 1815, JOE NaCl 0.9% 2021-05 No 500mL at 999 Univ ers (NS) bolus 2-16 12-16 mL/hr, 500 it y of infusion 00:00: 00:17 mL, IV [place] 500 mL 00 :00 Infusion, Medical ONCE, 1 Branch dose, On [facility] 05/06/22 at 1800, JOE ketorolac 2021-05 No 15mg 15 mg, Unive rs (TORADOL) 2-15 12-15 Slow IV ity of injection 22:00: 22:19 Push, [place] 15 mg 00 :00 ONCE, 1 Medical dose, On Branch [facility] 05/06/22 at 1600, JOE NaCl 0.9% 2021-05- No 1000mL at 999 Uni vers (NS) bolus 2-15 12-15 mL/hr, ity of infusion 22:00: 23:41 1,000 mL, [place] 1,000 mL 00 :00 IV Medical Infusion, Branch ONCE, 1 dose, On [facility] 05/06/22 at 1600, JOE ondansetron 2021-05- No 8mg 8 mg, Slow [facility] (ZOFRAN 2-15 12-15 IV Push, ity of (PF)) 21:15: 22:19 ONCE, 1 [place] injection 8 00 :00 dose, On [facility] [place] [facility] 05/06/22 at 1515, JOE ondansetron 2021-05 Yes [id number] 1-2 U nivers 4 mg tablet 2-15 tablets ity o f 00:00: every 8 [place] 00 hours as Medical needed for Branch nausea benzonatate 2021-05 Yes [id number] 200mg Take 1 [facility] 200 mg 2-15 capsule by ity of capsule 00:00: mouth 3 [place] 00 (three) Medical times Branch daily as needed for Cough. albuterol 2021-05 Yes [id number] 2{puff} Inhale 2 [facility] 90 2-15 Puffs ity of mcg/actuati 00:00: every 4 [place] on inhaler 00 (four) Medical hours as Branch needed for Wheezing or Shortness of Breath. butalbital- 2021-05 Yes [id number] 1{tbl} Take 1 [facility] acetaminoph 2-15 tablet by ity of en-caff 00:00: mouth [place] 50-325-40 00 every 4 Medical mg tablet (four) Branch hours as needed (headache) . ondansetron 2021-05 Yes [id number] 1-2 U nivers 4 mg tablet 2-15 tablets ity o f 00:00: every 8 [place] 00 hours as Medical needed for Branch nausea benzonatate 2021-05 Yes [id number] 200mg Take 1 [facility] 200 mg 2-15 capsule by ity of capsule 00:00: mouth 3 [place] 00 (three) Medical times Branch daily as needed for Cough. albuterol 2021-05 Yes [id number] 2{puff} Inhale 2 [facility] 90 2-15 Puffs ity of mcg/actuati 00:00: every 4 [place] on inhaler 00 (four) Medical hours as Branch needed for Wheezing or Shortness of Breath. butalbital- 2021-05 Yes [id number] 1{tbl} Take 1 [facility] acetaminoph 2-15 tablet by ity of en-caff 00:00: mouth [place] 50-325-40 00 every 4 Medical mg tablet (four) Branch hours as needed (headache) . ondansetron 2021-05 Yes [id number] 1-2 U nivers 4 mg tablet 2-15 tablets ity o f 00:00: every 8 [place] 00 hours as Medical needed for Branch nausea benzonatate 2021-05 Yes [id number] 200mg Take 1 [facility] 200 mg 2-15 capsule by ity of capsule 00:00: mouth 3 [place] 00 (three) Medical times Branch daily as needed for Cough. albuterol 2021-05 Yes [id number] 2{puff} Inhale 2 [facility] 90 2-15 Puffs ity of mcg/actuati 00:00: every 4 [place] on inhaler 00 (four) Medical hours as Branch needed for Wheezing or Shortness of Breath. butalbital- 2021-05 Yes [id number] 1{tbl} Take 1 [facility] acetaminoph 2-15 tablet by ity of en-caff 00:00: mouth [place] 50-325-40 00 every 4 Medical mg tablet (four) Branch hours as needed (headache) . ondansetron 2021-05 Yes [id number] 1-2 U nivers 4 mg tablet 2-15 tablets ity o f 00:00: every 8 [place] 00 hours as Medical needed for Branch nausea benzonatate 2021-05 Yes [id number] 200mg Take 1 [facility] 200 mg 2-15 capsule by ity of capsule 00:00: mouth 3 00 (three) Medical times Branch daily as needed for Cough. albuterol 2021-05 Yes [id number] 2{puff} Inhale 2 [facility] 90 2-15 Puffs ity of mcg/actuati 00:00: every 4 [place] on inhaler 00 (four) Medical hours as Branch needed for Wheezing or Shortness of Breath. butalbital- 2021-05 Yes [id number] 1{tbl} Take 1 [facility] acetaminoph 2-15 tablet by ity of en-caff 00:00: mouth [place] 50-325-40 00 every 4 Medical mg tablet (four) Branch hours as needed (headache) . ondansetron 2021-05 Yes [id number] 1-2 U nivers 4 mg tablet 2-15 tablets ity o f 00:00: every 8 [place] 00 hours as Medical needed for Branch nausea benzonatate 2021-05 Yes [id number] 200mg Take 1 [facility] 200 mg 2-15 capsule by ity of capsule 00:00: mouth 3 [place] 00 (three) Medical times Branch daily as needed for Cough. albuterol 2021-05 Yes [id number] 2{puff} Inhale 2 [facility] 90 2-15 Puffs ity of mcg/actuati 00:00: every 4 [place] on inhaler 00 (four) Medical hours as Branch needed for Wheezing or Shortness of Breath. butalbital- 2021-05 Yes [id number] 1{tbl} Take 1 [facility] acetaminoph 2-15 tablet by ity of en-caff 00:00: mouth [place] 50-325-40 00 every 4 Medical mg tablet (four) Branch hours as needed (headache) . ondansetron 2021-05 Yes [id number] 1-2 U nivers 4 mg tablet 2-15 tablets ity o f 00:00: every 8 [place] 00 hours as Medical needed for Branch nausea benzonatate 2021-05 Yes [id number] 200mg Take 1 [facility] 200 mg 2-15 capsule by ity of capsule 00:00: mouth 3 [place] 00 (three) Medical times Branch daily as needed for Cough. albuterol 2021-05 Yes [id number] 2{puff} Inhale 2 [facility] 90 2-15 Puffs ity of mcg/actuati 00:00: every 4 [place] on inhaler 00 (four) Medical hours as Branch needed for Wheezing or Shortness of Breath. butalbital- 2021-05 Yes [id number] 1{tbl} Take 1 [facility] acetaminoph 2-15 tablet by ity of en-caff 00:00: mouth [place] 50-325-40 00 every 4 Medical mg tablet (four) Branch hours as needed (headache) . ondansetron 2021-05 Yes [id number] 1-2 U nivers 4 mg tablet 2-15 tablets ity o f 00:00: every 8 [place] 00 hours as Medical needed for Branch nausea benzonatate 2021-05 Yes [id number] 200mg Take 1 [facility] 200 mg 2-15 capsule by ity of capsule 00:00: mouth 3 [place] 00 (three) Medical times Branch daily as needed for Cough. albuterol 2021-05 Yes [id number] 2{puff} Inhale 2 [facility] 90 2-15 Puffs ity of mcg/actuati 00:00: every 4 [place] on inhaler 00 (four) Medical hours as Branch needed for Wheezing or Shortness of Breath. butalbital- 2021-05 Yes [id number] 1{tbl} Take 1 [facility] acetaminoph 2-15 tablet by ity of en-caff 00:00: mouth [place] 50-325-40 00 every 4 Medical mg tablet (four) Branch hours as needed (headache) . ondansetron 2021-05 Yes [id number] 1-2 U nivers 4 mg tablet 2-15 tablets ity o f 00:00: every 8 [place] 00 hours as Medical needed for Branch nausea benzonatate 2021-05 Yes [id number] 200mg Take 1 [facility] 200 mg 2-15 capsule by ity of capsule 00:00: mouth 3 [place] 00 (three) Medical times Branch daily as needed for Cough. albuterol 2021-05 Yes [id number] 2{puff} Inhale 2 [facility] 90 2-15 Puffs ity of mcg/actuati 00:00: every 4 [place] on inhaler 00 (four) Medical hours as Branch needed for Wheezing or Shortness of Breath. butalbital- 2021-05 Yes [id number] 1{tbl} Take 1 [facility] acetaminoph 2-15 tablet by ity of en-caff 00:00: mouth [place] 50-325-40 00 every 4 Medical mg tablet (four) Branch hours as needed (headache) . ondansetron 2021-05 Yes [id number] 1-2 U nivers 4 mg tablet 2-15 tablets ity o f 00:00: every 8 [place] 00 hours as Medical needed for Branch nausea benzonatate 2021-05 Yes [id number] 200mg Take 1 [facility] 200 mg 2-15 capsule by ity of capsule 00:00: mouth 3 [place] 00 (three) Medical times Branch daily as needed for Cough. albuterol 2021-05 Yes [id number] 2{puff} Inhale 2 [facility] 90 2-15 Puffs ity of mcg/actuati 00:00: every 4 [place] on inhaler 00 (four) Medical hours as Branch needed for Wheezing or Shortness of Breath. butalbital- 2021-05 Yes [id number] 1{tbl} Take 1 [facility] acetaminoph 2-15 tablet by ity of en-caff 00:00: mouth [place] 50-325-40 00 every 4 Medical mg tablet (four) Branch hours as needed (headache) . ondansetron 2021-05 Yes [id number] 1-2 U nivers 4 mg tablet 2-15 tablets ity o f 00:00: every 8 [place] 00 hours as Medical needed for Branch nausea benzonatate 2021-05 Yes [id number] 200mg Take 1 [facility] 200 mg 2-15 capsule by ity of capsule 00:00: mouth 3 [place] 00 (three) Medical times Branch daily as needed for Cough. albuterol 2021-05 Yes [id number] 2{puff} Inhale 2 [facility] 90 2-15 Puffs ity of mcg/actuati 00:00: every 4 [place] on inhaler 00 (four) Medical hours as Branch needed for Wheezing or Shortness of Breath. butalbital- 2021-05 Yes [id number] 1{tbl} Take 1 [facility] acetaminoph 2-15 tablet by ity of en-caff 00:00: mouth [place] 50-325-40 00 every 4 Medical mg tablet (four) Branch hours as needed (headache) . ondansetron 2021-05 Yes [id number] 1-2 U nivers 4 mg tablet 2-15 tablets ity o f 00:00: every 8 [place] 00 hours as Medical needed for Branch nausea benzonatate 2021-05 Yes [id number] 200mg Take 1 [facility] 200 mg 2-15 capsule by ity of capsule 00:00: mouth 3 [place] 00 (three) Medical times Branch daily as needed for Cough. albuterol 2021-05 Yes [id number] 2{puff} Inhale 2 [facility] 90 2-15 Puffs ity of mcg/actuati 00:00: every 4 [place] on inhaler 00 (four) Medical hours as Branch needed for Wheezing or Shortness of Breath. butalbital- 2021-05 Yes [id number] 1{tbl} Take 1 [facility] acetaminoph 2-15 tablet by ity of en-caff 00:00: mouth [place] 50-325-40 00 every 4 Medical mg tablet (four) Branch hours as needed (headache) . ondansetron 2021-05 Yes [id number] 1-2 U nivers 4 mg tablet 2-15 tablets ity o f 00:00: every 8 [place] 00 hours as Medical needed for Branch nausea benzonatate 2021-05 Yes [id number] 200mg Take 1 [facility] 200 mg 2-15 capsule by ity of capsule 00:00: mouth 3 00 (three) Medical times Branch daily as needed for Cough. albuterol 2021-05 Yes [id number] 2{puff} Inhale 2 [facility] 90 2-15 Puffs ity of mcg/actuati 00:00: every 4 [place] on inhaler 00 (four) Medical hours as Branch needed for Wheezing or Shortness of Breath. butalbital- 2021-05 Yes [id number] 1{tbl} Take 1 [facility] acetaminoph 2-15 tablet by ity of en-caff 00:00: mouth [place] 50-325-40 00 every 4 Medical mg tablet (four) Branch hours as needed (headache) . ondansetron 2021-05 Yes [id number] 1-2 U nivers 4 mg tablet 2-15 tablets ity o f 00:00: every 8 [place] 00 hours as Medical needed for Branch nausea benzonatate 2021-05 Yes [id number] 200mg Take 1 [facility] 200 mg 2-15 capsule by ity of capsule 00:00: mouth 3 00 (three) Medical times Branch daily as needed for Cough. albuterol 2021-05 Yes [id number] 2{puff} Inhale 2 [facility] 90 2-15 Puffs ity of mcg/actuati 00:00: every 4 [place] on inhaler 00 (four) Medical hours as Branch needed for Wheezing or Shortness of Breath. butalbital- 2021-05 Yes [id number] 1{tbl} Take 1 [facility] acetaminoph 2-15 tablet by ity of en-caff 00:00: mouth [place] 50-325-40 00 every 4 Medical mg tablet (four) Branch hours as needed (headache) . albuterol 2021-05 Yes [id number] 2{puff} Inhale 2 [facility] 90 2-15 Puffs ity of mcg/actuati 00:00: every 4 [place] on inhaler 00 (four) Medical hours as Branch needed for Wheezing or Shortness of Breath. albuterol 2021-05 Yes [id number] 2{puff} Inhale 2 [facility] 90 2-15 Puffs ity of mcg/actuati 00:00: every 4 [place] on inhaler 00 (four) Medical hours as Branch needed for Wheezing or Shortness of Breath. albuterol 2021-05 Yes [id number] 2{puff} Inhale 2 [facility] 90 2-15 Puffs ity of mcg/actuati 00:00: every 4 [place] on inhaler 00 (four) Medical hours as Branch needed for Wheezing or Shortness of Breath. [facility] 2021-05- No [id number] 2{tbl} Take 2 [facility] r-ritonavir 2-15 12-21 tablets by i ty of (PAXLOVID, 00:00: 05:59 mouth in [place] EUA,) 300 00 :00 the Medical mg (150 mg morning Branch x 2)-100 mg and 2 tablet tablets in the evening. Do all this for 5 days. [facility] 2021-05- No [id number] 2{tbl} Take 2 Univers r-ritonavir 2-15 12-21 tablets by i ty of (PAXLOVID, 00:00: 05:59 mouth in [place] EUA,) 300 00 :00 the Medical mg (150 mg morning Branch x 2)-100 mg and 2 tablet tablets in the evening. Do all this for 5 days. [facility] 2021-05- No [id number] 2{tbl} Take 2 Univers r-ritonavir 2-15 12-21 tablets by i ty of (PAXLOVID, 00:00: 05:59 mouth in [place] EUA,) 300 00 :00 the Medical mg (150 mg morning Branch x 2)-100 mg and 2 tablet tablets in the evening. Do all this for 5 days. [facility] 2021-05 No [id number] 2{tbl} Take 2 Univers r-ritonavir 2-15 12-21 [...] porfirio ing tablet [place] 4 mg 12/1/22 at 1645, Routine amoxicillin 2021-05 Yes [id number] 1{tbl} Take 1 Univers -clavulanat 2-01 [id number] tablet by i ty of e 875-125 00:00: mouth [place] mg per 00 every 12 Medical tablet (twelve) Branch hours. ondansetron 2021-05 Yes [id number] 4mg Take 1 [facility] 4 mg 2- 975433 tablet by ity of disintegrat 00:00: mouth [place] ing tablet 00 every 8 Medica l (eight) Branch hours as needed for Nausea and Vomiting (N/V). amoxicillin 2021-05 Yes [id number] 1{tbl} Take 1 Univers -clavulanat 2-01 [id number] tablet by i ty of e 875-125 00:00: mouth [place] mg per 00 every 12 Medical tablet (twelve) Branch hours. ondansetron 2021-05 Yes [id number] 4mg Take 1 [facility] 4 mg 2- 823595 tablet by ity of disintegrat 00:00: mouth [place] ing tablet 00 every 8 Medica l (eight) Branch hours as needed for Nausea and Vomiting (N/V). amoxicillin 2021-05 Yes [id number] 1{tbl} Take 1 Univers -clavulanat 2-01 [id number] tablet by i ty of e 875-125 00:00: mouth [place] mg per 00 every 12 Medical tablet (twelve) Branch hours. ondansetron 2021-05 Yes [id number] 4mg Take 1 [facility] 4 mg 2-01 [id number] tablet by ity of disintegrat 00:00: mouth [place] ing tablet 00 every 8 Medica l (eight) Branch hours as needed for Nausea and Vomiting (N/V). amoxicillin 2021-05 Yes [id number] 1{tbl} Take 1 Univers -clavulanat 2-01 [id number] tablet by i ty of e 875-125 00:00: mouth [place] mg per 00 every 12 Medical tablet (twelve) Branch hours. ondansetron 2021-05 Yes [id number] 4mg Take 1 [facility] 4 mg 2-01 [id number] tablet by ity of disintegrat 00:00: mouth [place] ing tablet 00 every 8 Medica l (eight) Branch hours as needed for Nausea and Vomiting (N/V). amoxicillin 2021-05 Yes [id number] 1{tbl} Take 1 Univers -clavulanat 2-01 [id number] tablet by i ty of e 875-125 00:00: mouth [place] mg per 00 every 12 Medical tablet (twelve) Branch hours. ondansetron 2021-05 Yes [id number] 4mg Take 1 [facility] 4 mg 2-01 [id number] tablet by ity of disintegrat 00:00: mouth [place] ing tablet 00 every 8 Medica l (eight) Branch hours as needed for Nausea and Vomiting (N/V). amoxicillin 2021-05 Yes [id number] 1{tbl} Take 1 Univers -clavulanat 2-01 [id number] tablet by i ty of e 875-125 00:00: mouth [place] mg per 00 every 12 Medical tablet (twelve) Branch hours. ondansetron 2021-05 Yes [id number] 4mg Take 1 [facility] 4 mg 2- 685304 tablet by ity of disintegrat 00:00: mouth [place] ing tablet 00 every 8 Medica l (eight) Branch hours as needed for Nausea and Vomiting (N/V). amoxicillin 2021-05 Yes [id number] 1{tbl} Take 1 [facility] -clavulanat 2-01 [id number] tablet by i ty of e 875-125 00:00: mouth [place] mg per 00 every 12 Medical tablet (twelve) Branch hours. ondansetron 2021-05 Yes [id number] 4mg Take 1 [facility] 4 mg 2- [id number] tablet by ity of disintegrat 00:00: mouth [place] ing tablet 00 every 8 Medica l (eight) Branch hours as needed for Nausea and Vomiting (N/V). amoxicillin 2021-05 Yes [id number] 1{tbl} Take 1 Univers -clavulanat 2-01 [id number] tablet by i ty of e 875-125 00:00: mouth [place] mg per 00 every 12 Medical tablet (twelve) Branch hours. ondansetron 2021-05 Yes [id number] 4mg Take 1 [facility] 4 mg 2-01 [id number] tablet by ity of disintegrat 00:00: mouth [place] ing tablet 00 every 8 Medica l (eight) Branch hours as needed for Nausea and Vomiting (N/V). amoxicillin 2021-05 Yes [id number] 1{tbl} Take 1 Univers -clavulanat 2-01 [id number] tablet by i ty of e 875-125 00:00: mouth [place] mg per 00 every 12 Medical tablet (twelve) Branch hours. ondansetron 2021-05 Yes [id number] 4mg Take 1 [facility] 4 mg 2-01 [id number] tablet by ity of disintegrat 00:00: mouth [place] ing tablet 00 every 8 Medica l (eight) Branch hours as needed for Nausea and Vomiting (N/V). amoxicillin 2021-05 Yes [id number] 1{tbl} Take 1 Univers -clavulanat 2-01 [id number] tablet by i ty of e 875-125 00:00: mouth [place] mg per 00 every 12 Medical tablet (twelve) Branch hours. ondansetron 2021-05 Yes [id number] 4mg Take 1 [facility] 4 mg 2-01 [id number] tablet by ity of disintegrat 00:00: mouth [place] ing tablet 00 every 8 Medica l (eight) Branch hours as needed for Nausea and Vomiting (N/V). amoxicillin 2021-05 Yes [id number] 1{tbl} Take 1 Univers -clavulanat 2-01 [id number] tablet by i ty of e 875-125 00:00: mouth [place] mg per 00 every 12 Medical tablet (twelve) Branch hours. ondansetron 2021-05 Yes [id number] 4mg Take 1 [facility] 4 mg 2- [id number] tablet by ity of disintegrat 00:00: mouth [place] ing tablet 00 every 8 Medica l (eight) Branch hours as needed for Nausea and Vomiting (N/V). amoxicillin 2021-05 Yes [id number] 1{tbl} Take 1 Univers -clavulanat 2-01 [id number] tablet by i ty of e 875-125 00:00: mouth [place] mg per 00 every 12 Medical tablet (twelve) Branch hours. ondansetron 2021-05 Yes [id number] 4mg Take 1 [facility] 4 mg 2-01 [id number] tablet by ity of disintegrat 00:00: mouth [place] ing tablet 00 every 8 Medica l (eight) Branch hours as needed for Nausea and Vomiting (N/V). amoxicillin 2021-05 Yes [id number] 1{tbl} Take 1 Univers -clavulanat 2-01 [id number] tablet by i ty of e 875-125 00:00: mouth [place] mg per 00 every 12 Medical tablet (twelve) Branch hours. ondansetron 2021-05 Yes [id number] 4mg Take 1 [facility] 4 mg 2-01 [id number] tablet by ity of disintegrat 00:00: mouth [place] ing tablet 00 every 8 Medica l (eight) Branch hours as needed for Nausea and Vomiting (N/V). amoxicillin 2021-05 Yes [id number] 1{tbl} Take 1 Univers -clavulanat 2-01 [id number] tablet by i ty of e 875-125 00:00: mouth [place] mg per 00 every 12 Medical tablet (twelve) Branch hours. ondansetron 2021-05 Yes [id number] 4mg Take 1 [facility] 4 mg 2-01 [id number] tablet by ity of disintegrat 00:00: mouth [place] ing tablet 00 every 8 Medica l (eight) Branch hours as needed for Nausea and Vomiting (N/V). amoxicillin 2021-05 Yes [id number] 1{tbl} Take 1 Univers -clavulanat 2-01 [id number] tablet by i ty of e 875-125 00:00: mouth [place] mg per 00 every 12 Medical tablet (twelve) Branch hours. ondansetron 2021-05 Yes [id number] 4mg Take 1 [facility] 4 mg 2-01 [id number] tablet by ity of disintegrat 00:00: mouth [place] ing tablet 00 every 8 Medica l (eight) Branch hours as needed for Nausea and Vomiting (N/V). ondansetron 2021-05 Yes [id number] 4mg Take 1 Univers 4 mg 2-01 [id number] tablet by ity of disintegrat 00:00: mouth [place] ing tablet 00 every 8 Medica l (eight) Branch hours as needed for Nausea and Vomiting (N/V). ondansetron 2021-05 Yes [id number] 4mg Take 1 Univers 4 mg 2-01 [id number] tablet by ity of disintegrat 00:00: mouth [place] ing tablet 00 every 8 Medica l (eight) Branch hours as needed for Nausea and Vomiting (N/V). ondansetron 2021-05 Yes [id number] 4mg Take 1 Univers 4 mg 2-01 [id number] tablet by ity of disintegrat 00:00: mouth [place] ing tablet 00 every 8 Medica l (eight) Branch hours as needed for Nausea and Vomiting (N/V). zoster 2021-05- No [id number] .5mL 0.5 mL by Univers vaccine, 0-05 03- 9104 Intramuscu ity of recombinant 00:00: 04:59 lar route [place] (SHINGRIX, 00 :00 once now Medic al PF,) for 1 Branch injection dose. And repeat in 2-6 months zoster 2021-05- No [id number] .5mL 0.5 mL by Univers vaccine, 0-05 03- 9104 Intramuscu ity of recombinant 00:00: 04:59 lar route [place] (SHINGRIX, 00 :00 once now Medic al PF,) for 1 Branch injection dose. And repeat in 2-6 months zoster 2021-05- No [id number] .5mL 0.5 mL by Univers vaccine, 0- [...] o f 1 mg tablet 19:28: at [place] [address] bedtime. Medical Branch traZODone Yes 50mg Take 50 mg Un matt 100 mg 9-27 by mouth ity of tablet 19:28: at [place] [address] bedtime. Medical Branch hydralAZINE Yes 25mg Take [...] o f 1 mg tablet 19:28: at [place] [address] bedtime. Medical Branch traZODone 2021-0 Yes 50mg Take 50 mg Un matt 100 mg 9-27 by mouth ity of tablet 19:28: at [place] [address] bedtime. Medical Branch hydralAZINE 2021-0 Yes 25mg [...] o f 1 mg tablet 19:28: at [place] [address] bedtime. Medical Branch traZODone 2021-0 Yes 50mg Take 50 mg Un matt 100 mg 9-27 by mouth ity of tablet 19:28: at [place] [address] bedtime. Medical Branch hydralAZINE 2021-0 Yes 25mg [...] o f 1 mg tablet 19:28: at [place] [address] bedtime. Medical Branch traZODone 2021-0 Yes 50mg Take 50 mg Un matt 100 mg 9-27 by mouth ity of tablet 19:28: at [place] [address] bedtime. Medical Branch hydralAZINE 2021-0 Yes 25mg [...] o f 1 mg tablet 19:28: at [place] [address] bedtime. Medical Branch traZODone 2022-0 Yes 50mg Take 50 mg Un matt 100 mg 9-27 by mouth ity of tablet 19:28: at [place] [address] bedtime. Medical Branch hydralAZINE 2-0 Yes 25mg [...] o f 1 mg tablet 19:28: at [place] [address] bedtime. Medical Branch traZODone 2021-0 Yes 50mg Take 50 mg Un matt 100 mg 9-27 by mouth ity of tablet 19:28: at [place] [address] bedtime. Medical Branch hydralAZINE 2021-0 Yes 25mg [...] o f 1 mg tablet 19:28: at [place] [address] bedtime. Medical Branch traZODone 2021-0 Yes 50mg Take 50 mg Un matt 100 mg 9-27 by mouth ity of tablet 19:28: at [place] [address] bedtime. Medical Branch hydralAZINE 0 Yes 25mg [...] o f 1 mg tablet 19:28: at [place] [address] bedtime. Medical Branch traZODone 2021-0 Yes 50mg Take 50 mg Un matt 100 mg 9-27 by mouth ity of tablet 19:28: at [place] [address] bedtime. Medical Branch hydralAZINE 2021-0 Yes 25mg [...] o f 1 mg tablet 19:28: at [place] [address] bedtime. Medical Branch traZODone 2021-0 Yes 50mg Take 50 mg Un matt 100 mg 9-27 by mouth ity of tablet 19:28: at [place] [address] bedtime. Medical Branch hydralAZINE 2021-0 Yes 25mg [...] o f 1 mg tablet 19:28: at [place] [address] bedtime. Medical Branch traZODone 2021-0 Yes 50mg Take 50 mg Un matt 100 mg 9-27 by mouth ity of tablet 19:28: at [place] [address] bedtime. Medical Branch hydralAZINE 2021-0 Yes 25mg [...] 100 mg 04 (two) Medical tablet times [place] daily. amLODIPine 2021-0 Yes 10mg Take 10 mg U nivers (NORVASC) 9-27 by mouth ity of 10 mg 19:28: daily. [place] tablet 04 Medical Branch clonazePAM 2021-0 Yes 1mg Take 1 mg Un matt (KLONOPIN) 9-27 by mouth ity o f 1 mg tablet 19:28: at [place] [address] bedtime. Medical Branch traZODone 2021-0 Yes 50mg Take 50 mg Un matt 100 mg 9-27 by mouth ity of tablet 19:28: at [place] [address] bedtime. Medical Branch hydralAZINE 2021-0 Yes 25mg [...] 100 mg 04 (two) Medical tablet times [place] daily. amLODIPine 2021-0 Yes 10mg Take 10 mg U nivers (NORVASC) 9-27 by mouth ity of 10 mg 19:28: daily. [place] tablet 04 Medical Branch clonazePAM 2021-0 Yes 1mg Take 1 mg Un matt (KLONOPIN) 9-27 by mouth ity o f 1 mg tablet 19:28: at [place] [address] bedtime. Medical Branch traZODone 2021-0 Yes 50mg Take 50 mg Un matt 100 mg 9-27 by mouth ity of tablet 19:28: at [place] [address] bedtime. Medical Branch hydralAZINE 2021-0 Yes 25mg [...] o f 1 mg tablet 19:28: at [place] [address] bedtime. Medical Branch traZODone 2021-0 Yes 50mg Take 50 mg Un matt 100 mg 9-27 by mouth ity of tablet 19:28: at [place] [address] bedtime. Medical Branch hydralAZINE 2021-0 Yes 25mg [...] 100 mg 04 (two) Medical tablet times [place] daily. amLODIPine 2021-0 Yes 10mg Take 10 mg U nivers (NORVASC) 9-27 by mouth ity of 10 mg 19:28: daily. [place] tablet 04 Medical Branch clonazePAM 2021-0 Yes 1mg Take 1 mg Un matt (KLONOPIN) 9-27 by mouth ity o f 1 mg tablet 19:28: at [place] [address] bedtime. Medical Branch traZODone 2021-0 Yes 50mg Take 50 mg Un matt 100 mg 9-27 by mouth ity of tablet 19:28: at [place] [address] bedtime. Medical Branch hydralAZINE 2021-0 Yes 25mg [...] o f 1 mg tablet 19:28: at [place] [address] bedtime. Medical Branch traZODone 2021-0 Yes 50mg Take 50 mg Un matt 100 mg 9-27 by mouth ity of tablet 19:28: at [place] [address] bedtime. Medical Branch hydralAZINE 2021-0 Yes 25mg [...] o f 1 mg tablet 19:28: at [place] [address] bedtime. Medical Branch traZODone 2-0 Yes 50mg Take 50 mg Un matt 100 mg 9-27 by mouth ity of tablet 19:28: at [place] [address] bedtime. Medical Branch hydralAZINE 2-0 Yes 25mg [...] o f 1 mg tablet 19:28: at [place] [address] bedtime. Medical Branch traZODone 2021-0 Yes 50mg Take 50 mg Un matt 100 mg 9-27 by mouth ity of tablet 19:28: at [place] [address] bedtime. Medical Branch hydralAZINE 2021-0 Yes 25mg [...] o f 1 mg tablet 19:28: at [place] [address] bedtime. Medical Branch traZODone 2-0 Yes 50mg Take 50 mg Un matt 100 mg 9-27 by mouth ity of tablet 19:28: at [place] [address] bedtime. Medical Branch hydralAZINE 2021-0 Yes 25mg [...] o f 1 mg tablet 19:28: at [place] [address] bedtime. Medical Branch traZODone 2021-0 Yes 50mg Take 50 mg Un matt 100 mg 9-27 by mouth ity of tablet 19:28: at [place] [address] bedtime. Medical Branch hydralAZINE 2021-0 Yes 25mg [...] o f 1 mg tablet 19:28: at [place] [address] bedtime. Medical Branch traZODone 2-0 Yes 50mg Take 50 mg Un matt 100 mg 9-27 by mouth ity of tablet 19:28: at [place] [address] bedtime. Medical Branch hydralAZINE 2021-0 Yes 25mg [...] 100 mg 04 (two) Medical tablet times [place] daily. amLODIPine 2021-0 Yes 10mg Take 10 mg U nivers (NORVASC) 9-27 by mouth ity of 10 mg 19:28: daily. [place] tablet 04 Medical Branch clonazePAM 2021-0 Yes 1mg Take 1 mg Un matt (KLONOPIN) 9-27 by mouth ity o f 1 mg tablet 19:28: at [place] [address] bedtime. Medical Branch traZODone 2021-0 Yes 50mg Take 50 mg Un matt 100 mg 9-27 by mouth ity of tablet 19:28: at [place] [address] bedtime. Medical Branch hydralAZINE 2021-0 Yes 25mg [...] o f 1 mg tablet 19:28: at [place] [address] bedtime. Medical Branch traZODone 2021-0 Yes 50mg Take 50 mg Un matt 100 mg 9-27 by mouth ity of tablet 19:28: at [place] [address] bedtime. Medical Branch hydralAZINE 2021-0 Yes 25mg [...] 100 mg 04 (two) Medical tablet times [place] daily. amLODIPine 2021-0 Yes 10mg Take 10 mg U nivers (NORVASC) 9-27 by mouth ity of 10 mg 19:28: daily. [place] tablet 04 Medical Branch clonazePAM 2021-0 Yes 1mg Take 1 mg Un matt (KLONOPIN) 9- by mouth ity o f 1 mg tablet 19:28: at [place] [address] bedtime. Medical Branch traZODone 2021-0 Yes 50mg Take 50 mg Un matt 100 mg 9-27 by mouth ity of tablet 19:28: at [place] [address] bedtime. Medical Branch hydralAZINE 2021-0 Yes 25mg Take 25 mg Univers (APRESOLINE 9-27 by mouth ity of ) 25 mg 19:28: daily. [place] tablet 04 Medical Branch metoprolol 2021-0 Yes 100mg Take 100 [...] o f 1 mg tablet 19:28: at [place] [address] bedtime. Medical Branch traZODone Yes 50mg Take 50 mg Un matt 100 mg 02-16 by mouth ity of tablet 19:28: at [place] [address] bedtime. [facility] Branch cefpodoxime 2021- No [id number] 200mg Take 1 Univers 200 mg 02-16 tablet by ity of tablet 00:00: 04:59 mouth in [place] 00 :00 the [facility] morning Branch and 1 tablet in the evening. Do all this for 3 days. cefpodoxime 2021- No [id number] 200mg Take 1 Univers 200 mg 02-16 tablet by ity of tablet 00:00: 04:59 mouth in [place] 00 :00 the [facility] and 1 tablet in the evening. Do all this for 3 days. haloperidol 2021- No 2mg 2 mg, Slow Univers lactate 02-15 IV Push, ity of (HALDOL) 09:00: 09:12 ONCE, 1 [place] injection 2 00 :00 dose, On Medi porfirio mg Mon [place] 02/15/22 at 0400, Routine hydroCHLORO Yes 25mg 25 mg, Univ ers thiazide 9-25 Oral, ity of (ESIDRIX) 14:00: DAILY, [place] capsule 25 00 First dose Med ical mg on [place] 02/14/22 at 0900, Until Discontinu ed, Routine butalbital- Yes 1{tbl} 1 tablet, [facility] acetaminoph 24 Oral, ity of en-caff 18:46: Q6HPRN, [place] (ESGIC) 06 Starting Medical 50-325-40 on [facility] Branch mg tablet 1 02/13/22 [...] of 2,000 mg in 17:00: 18:24 Piggyback, [place] NaCl 0.9% 00 :00 Q24H ABX, Medic [...] First dose [place] mg 00 on [facility] Medical 02/11/22 at Branch 1300, Until Discontinu ed, Routine raltegravir 2021-0 Yes 400mg 400 mg, Un matt (ISENTRESS) 02-11 Oral, BID, it y of tablet 400 18:00: First dose [place] mg 00 on [facility] Medical 02/11/22 at Branch 1300, Until Discontinu ed, JOE metoprolol 2021-0 Yes 100mg 100 mg, Uni vers tartrate 02-11 Oral, BID, ity o f (LOPRESSOR) 18:00: First dose [place] tablet 100 00 on [facility] Medical mg 02/11/22 at Branch 1300, Until Discontinu ed, Routine lisinopriL 0 Yes 40mg 40 mg, Unive rs (PRINIVIL,Z 02-11 Oral, BID, it y of ESTRIL) 18:00: First dose [place] tablet 40 00 on [facility] Medical mg 02/11/22 at Branch 1300, Until Discontinu ed, Routine emtricitabi 0 Yes 1{tbl} 1 [facility] 02-[facility] Oral, ity of r alafen 18:00: DAILY, [place] (DESCOVY) 00 First dose Medi porfirio tablet 1 on [facility] tablet 02/11/22 at 1300, Until Discontinu ed, Routine ipratropium 0 Yes .5mg 0.5 mg, Uni vers (ATROVENT) 02-11 Inhalation ity of 0.02 % 17:57: , QIDPRN, [place] nebulizer 10 Starting Medica l solution on [facility] Branch 0.5 mg 02/11/22 at 1257, Until Discontinu ed, Routine, Wheezing, Shortness of Breath amLODIPine 0 Yes 10mg 10 mg, Unive rs (NORVASC) 02-11 Oral, ity of tablet 10 17:30: DAILY, [place] mg 00 First dose Medical (after Branch last modificati on) on [facility] 02/11/22 at 1230, Until Discontinu ed, Routine hydrALAZINE 2021-0 2022- No 25mg 25 mg, Uni vers (APRESOLINE 02-11- Oral, ity of ) tablet 25 17:30: 12:54 DAILY, [place] mg 00 :55 First dose Medical (after Branch last modificati on) on [facility] 02/11/22 at 1230, Until Discontinu ed, Routine HYDROcodone 0 202- No 1{tbl} 1 tablet, Univers -acetaminop 02-11 Oral, ity of hen (NORCO 14:11: 17:37 Q6HPRN, [place] 5) 5-325 mg 03 :24 Starting Medi porfirio tablet 1 on [facility] Branch tablet 02/11/22 at 0911, Until Tue02/12/22 at 1237, Routine, Pain (scale 7-10) melatonin 0 Yes 3mg 3 mg, Univers (MELATIN) 02-11 Oral, ity of tablet 3 mg 14:08: QHSPRN, [place] 17 Starting Medical on [facility] Branch 02/11/22 at 0908, Until Discontinu ed, Routine, Insomnia acetaminoph 0 202- No 1{tbl} 1 tablet, Univers en-codeine 02-11 Oral, ity of (TYLENOL 14:06: 17:37 [facility] [place] #[facility]) 300-30 19 :24 Starting Medic al mg tablet 1 on [facility] tablet 02/11/22 at 0906, Until Tue02/12/22 at 1237, Routine, Pain (scale 4-6) sennosides- 0 Yes 1{tbl} 1 tablet, Univers docusate 02-11 Oral, ity of sodium 14:06: QDAILYPRN, [place] (SENOKOT-S) 09 Starting Medi porfirio 8.6-50 mg on [facility] per tablet 02/11/22 at 1 tablet 0906, Until Discontinu ed, Routine, Constipati on ondansetron 0 Yes 4mg 4 mg, Slow Univers (ZOFRAN 02-11 IV Push, ity of (PF)) 14:05: [place], [place] injection 4 59 Starting Medi porfirio mg on [facility] Branch 02/11/22 at 0905, Until Discontinu [...] of ) 25 mg 09:10: daily. [facility] 54 Medical Branch amLODIPine Yes 10mg Take 10 mg U nivers (NORVASC) 02-11 by mouth ity of 10 mg 09:10: daily. [facility] 54 [facility] Branch piperacilli 2021- No 3.375g 3.375 [...] of therapy: 72 hours iopamidol 2021- No [id number] 60mL 60 mL, Univers (ISOVUE 02-11 Intravenou [...] 02/11/22 at 0015, JOE emtricitabi 0 Yes [id number] Take one Univers ne-tenofovi 9-12 po daily ity of r alafen 00:00: [place] (DESCOVY) Medical tablet Branch emtricitabi Yes [id number] Take one Univers ne-tenofovi 9-12 po daily ity of r alafen 00:00: [place] (DESCOVY) 00 Medical tablet Branch emtricitabi Yes [id number] Take one Univers ne-tenofovi 9-12 po daily ity of r alafen 00:00: [place] (DESCOVY) 00 Medical tablet Branch emtricitabi Yes [id number] Take one Univers ne-tenofovi 9-12 po daily ity of r alafen 00:00: [place] (DESCOVY) 00 Medical tablet Branch emtricitabi Yes [id number] Take one Univers ne-tenofovi 9-12 po daily ity of r alafen 00:00: [place] (DESCOVY) 00 Medical tablet Branch emtricitabi Yes [id number] Take one Univers ne-tenofovi 9-12 po daily ity of r alafen 00:00: [place] (DESCOVY) 00 Medical tablet [facility] [id number] Take one Univers ne-tenofovi 9-12 po daily ity of r alafen 00:00: [place] (DESCOVY) 00 Medical tablet Branch emtricita Yes [id number] Take one Univers ne-tenofovi 9-12 po daily ity of r alafen 00:00: [place] (DESCOVY) 00 Medical tablet Branch emtricita Yes [id number] Take one Univers ne-tenofovi 9-12 po daily ity of r alafen 00:00: [place] (DESCOVY) 00 Medical tablet Branch emtricita Yes [id number] Take one Univers ne-tenofovi 9-12 po daily ity of r alafen 00:00: [place] (DESCOVY) 00 Medical tablet Branch [facility] [id number] Take one Univers ne-tenofovi 9-12 po daily ity of r alafen 00:00: [place] (DESCOVY) 00 Medical tablet Branch [facility] Yes [id number] Take one Univers ne-tenofovi 9-12 po daily ity of r alafen 00:00: [place] (DESCOVY) 00 Medical tablet Branch emtricita Yes [id number] Take one Univers ne-tenofovi 9-12 po daily ity of r alafen 00:00: [place] (DESCOVY) 00 Medical tablet Branch emtricita Yes [id number] Take one Univers ne-tenofovi 9-12 po daily ity of r alafen 00:00: [place] (DESCOVY) 00 Medical tablet Branch emtricita Yes [id number] Take one Univers ne-tenofovi 9-12 po daily ity of r alafen 00:00: [place] (DESCOVY) 00 Medical tablet Branch emtricita Yes [id number] Take one Univers ne-tenofovi 9-12 po daily ity of r alafen 00:00: [place] (DESCOVY) 00 Medical tablet Branch emtricita Yes [id number] Take one Univers ne-tenofovi 9-12 po daily ity of r alafen 00:00: [place] (DESCOVY) 00 Medical tablet Branch emtricitabi 2021-0 2022- No [id number] Take one Univers ne-arianofovi 02-01-04 po daily ity of r alafen 00:00: 00:00 [place] (DESCOVY) 00 :00 Medical tablet Branch emtricitabi 2021-0 3- No [id number] Take one Univers ne-arianofovi 02-01- po daily ity of r alafen 00:00: 00:00 [place] (DESCOVY) 00 :00 Medical tablet Branch naproxen 2021-0 Yes [id number] 500mg Take 1 U nivers (NAPROSYN) 7-24 tablet by ity of 500 mg 00:00: mouth in [place] tablet 00 the Medical morning Branch and 1 tablet in the evening. Take with meals. methocarbam 2021-0 Yes [id number] 500mg Take 1 Univers oL 500 mg 7-24 tablet by ity o f tablet 00:00: mouth 4 [place] ([facility]) Medical times Branch daily. naproxen 2021-0 Yes [id number] 500mg Take 1 U nivers (NAPROSYN) 7-24 tablet by ity of 500 mg 00:00: mouth in [place] tablet 00 the Medical morning Branch and 1 tablet in the evening. Take with meals. methocarbam 2021-0 Yes [id number] 500mg Take 1 Univers oL 500 mg 7-24 tablet by ity o f tablet 00:00: mouth 4 [place] ([facility]) Medical times Branch daily. naproxen 2-0 Yes [id number] 500mg Take 1 U nivers (NAPROSYN) 7-24 tablet by ity of 500 mg 00:00: mouth in [place] tablet 00 the Medical morning Branch and 1 tablet in the evening. Take with meals. methocarbam 2022-0 Yes [id number] 500mg Take 1 Univers oL 500 mg 7-24 tablet by ity o f tablet 00:00: mouth 4 [place] ([facility]) Medical times Branch daily. naproxen 2-0 2022- No [id number] 500mg Take 1 Univers (NAPROSYN) 7-24 10-14 tablet by ity of 500 mg 00:00: 00:00 mouth in [place] tablet 00 :00 the Medical morning Branch and 1 tablet in the evening. Take with meals. methocarbam 2021- No [id number] 500mg Take 1 Univers oL 500 mg 12-13 tablet by ity of tablet 00:00: 00:00 mouth 4 [place] 00 :00 (four) Medical times Branch daily. naproxen 2021- No [id number] 500mg Take 1 Univers (NAPROSYN) 12-13 tablet by ity of 500 mg 00:00: 00:00 mouth in [place] tablet 00 :00 the Medical morning Branch and 1 tablet in the evening. Take with meals. methocarbam 2021- No [id number] 500mg Take 1 Univers oL 500 mg 12-13 tablet by ity of tablet 00:00: 00:00 mouth 4 [place] 00 :00 (four) Medical times [place] daily. esomeprazol 2021- No 40mg Take 40 mg Univers e (NEXIUM) 11-20 by mouth 2 it y of 40 mg 09:12: 00:00 (two) [place] capsule 03 :00 times Medical daily. Branch amiodarone No 100mg Take 100 U nivers 100 mg 11-20 mg by ity of tablet 09:11: 00:00 mouth [place] 57 :00 daily. Medical Branch apixaban No 5mg Take 5 mg Uni vers (ELIQUIS) 5 11-20 by mouth 2 i ty of mg tablet 09:11: 00:00 (two) [place] 35 :00 times Medical daily. Branch traZODONE 2021- No Take by [facility] ers (DESYREL) 11-20 mouth at ity o f 10 mg/mL 09:10: 00:00 bedtime. [place] oral 28 :00 Medical suspension Branch hydralAZINE Yes 25mg Take 25 mg Univers (APRESOLINE 11-20 by mouth ity of ) 25 mg 08:47: daily. [place] tablet 47 Medical Branch cephALEXin 2021- No [id number] 500mg Take 1 Univers (KEFLEX) 10-24 capsule [...] Indication s: acute pain buPROPion 0 Yes [id number] 150mg Take 1 U nivers XL 4-12 tablet by ity of (WELLBUTRIN 00:00: mouth [place] XL) 150 mg 00 daily. Medical 24 hr Branch tablet busPIRone Yes [id number] 30mg Take 1 Un matt 30 mg 4-12 tablet by ity of tablet 00:00: mouth 2 [place] 00 (two) Medical times Branch daily. SERTraline Yes [id number] 200mg Take 2 Univers 100 mg 4-12 tablets by ity of tablet 00:00: mouth [place] 00 daily. Medical Branch buPROPion Yes [id number] 150mg Take 1 U nivers XL 4-12 tablet by ity of (WELLBUTRIN 00:00: mouth [place] XL) 150 mg 00 daily. Medical 24 hr Branch tablet busPIRone 2021-0 Yes [id number] 30mg Take 1 Un matt 30 mg 4-12 tablet by ity of tablet 00:00: mouth 2 [place] 00 (two) Medical times Branch daily. SERTraline 2021-0 Yes [id number] 200mg Take 2 Univers 100 mg 4-12 tablets by ity of tablet 00:00: mouth [place] 00 daily. Medical Branch buPROPion 2021-0 Yes [id number] 150mg Take 1 U nivers XL 4-12 tablet by ity of (WELLBUTRIN 00:00: mouth [place] XL) 150 mg 00 daily. Medical 24 hr Branch tablet busPIRone 2021-0 Yes [id number] 30mg Take 1 Un matt 30 mg 4-12 tablet by ity of tablet 00:00: mouth 2 [place] 00 (two) Medical times Branch daily. SERTraline 2021-0 Yes [id number] 200mg Take 2 Univers 100 mg 4-12 tablets by ity of tablet 00:00: mouth [place] 00 daily. Medical Branch buPROPion 2021-0 Yes [id number] 150mg Take 1 U nivers XL 4-12 tablet by ity of (WELLBUTRIN 00:00: mouth [place] XL) 150 mg 00 daily. Medical 24 hr Branch tablet busPIRone 2021-0 Yes [id number] 30mg Take 1 Un matt 30 mg 4-12 tablet by ity of tablet 00:00: mouth 2 [place] 00 (two) Medical times Branch daily. SERTraline 2021-0 Yes [id number] 200mg Take 2 Univers 100 mg 4-12 tablets by ity of tablet 00:00: mouth [place] 00 daily. Medical Branch buPROPion 2021-0 Yes [id number] 150mg Take 1 U nivers XL 4-12 tablet by ity of (WELLBUTRIN 00:00: mouth [place] XL) 150 mg 00 daily. Medical 24 hr Branch tablet busPIRone 2021-0 Yes [id number] 30mg Take 1 Un matt 30 mg 4-12 tablet by ity of tablet 00:00: mouth 2 [place] 00 (two) Medical times Branch daily. SERTraline 2021-0 Yes [id number] 200mg Take 2 Univers 100 mg 4-12 tablets by ity of tablet 00:00: mouth [place] 00 daily. Medical Branch buPROPion 2021-0 Yes [id number] 150mg Take 1 U nivers XL 4-12 tablet by ity of (WELLBUTRIN 00:00: mouth [place] XL) 150 mg 00 daily. Medical 24 hr Branch tablet busPIRone 2021-0 Yes [id number] 30mg Take 1 Un matt 30 mg 4-12 tablet by ity of tablet 00:00: mouth 2 [place] 00 (two) Medical times Branch daily. SERTraline 2021-0 Yes [id number] 200mg Take 2 Univers 100 mg 4-12 tablets by ity of tablet 00:00: mouth [place] 00 daily. Medical Branch buPROPion 2021-0 Yes [id number] 150mg Take 1 U nivers XL 4-12 tablet by ity of (WELLBUTRIN 00:00: mouth [place] XL) 150 mg 00 daily. Medical 24 hr Branch tablet busPIRone 2021-0 Yes [id number] 30mg Take 1 Un matt 30 mg 4-12 tablet by ity of tablet 00:00: mouth 2 [place] 00 (two) Medical times Branch daily. SERTraline 2021-0 Yes [id number] 200mg Take 2 Univers 100 mg 4-12 tablets by ity of tablet 00:00: mouth [place] 00 daily. Medical Branch buPROPion 2021-0 Yes [id number] 150mg Take 1 U nivers XL 4-12 tablet by ity of (WELLBUTRIN 00:00: mouth [place] XL) 150 mg 00 daily. Medical 24 hr Branch tablet busPIRone 2021-0 Yes [id number] 30mg Take 1 Un matt 30 mg 4-12 tablet by ity of tablet 00:00: mouth 2 [place] 00 (two) Medical times Branch daily. SERTraline 2021-0 Yes [id number] 200mg Take 2 Univers 100 mg 4-12 tablets by ity of tablet 00:00: mouth [place] 00 daily. Medical Branch buPROPion 2021-0 Yes [id number] 150mg Take 1 U nivers XL 4-12 tablet by ity of (WELLBUTRIN 00:00: mouth [place] XL) 150 mg 00 daily. Medical 24 hr Branch tablet busPIRone 2021-0 Yes [id number] 30mg Take 1 Un matt 30 mg 4-12 tablet by ity of tablet 00:00: mouth 2 [place] 00 (two) Medical times Branch daily. SERTraline 2021-0 Yes [id number] 200mg Take 2 Univers 100 mg 4-12 tablets by ity of tablet 00:00: mouth [place] 00 daily. Medical Branch buPROPion 2021-0 Yes [id number] 150mg Take 1 U nivers XL 4-12 tablet by ity of (WELLBUTRIN 00:00: mouth [place] XL) 150 mg 00 daily. Medical 24 hr Branch tablet busPIRone 2021-0 Yes [id number] 30mg Take 1 Un matt 30 mg 4-12 tablet by ity of tablet 00:00: mouth 2 [place] 00 (two) Medical times Branch daily. SERTraline 2021-0 Yes [id number] 200mg Take 2 Univers 100 mg 4-12 tablets by ity of tablet 00:00: mouth [place] 00 daily. Medical Branch buPROPion 2021-0 Yes [id number] 150mg Take 1 U nivers XL 4-12 tablet by ity of (WELLBUTRIN 00:00: mouth [place] XL) 150 mg 00 daily. Medical 24 hr Branch tablet busPIRone 2021-0 Yes [id number] 30mg Take 1 Un matt 30 mg 4-12 tablet by ity of tablet 00:00: mouth 2 [place] 00 (two) Medical times Branch daily. SERTraline 2021-0 Yes [id number] 200mg Take 2 Univers 100 mg 4-12 tablets by ity of tablet 00:00: mouth [place] 00 daily. Medical Branch buPROPion 2021-0 Yes [id number] 150mg Take 1 U nivers XL 4-12 tablet by ity of (WELLBUTRIN 00:00: mouth [place] XL) 150 mg 00 daily. Medical 24 hr Branch tablet busPIRone 2021-0 Yes [id number] 30mg Take 1 Un matt 30 mg 4-12 tablet by ity of tablet 00:00: mouth 2 [place] 00 (two) Medical times Branch daily. SERTraline 0 Yes [id number] 200mg Take 2 Univers 100 mg 4-12 tablets by ity of tablet 00:00: mouth [place] 00 daily. Medical Branch buPROPion 2021-0 Yes [id number] 150mg Take 1 U nivers XL 4-12 tablet by ity of (WELLBUTRIN 00:00: mouth [place] XL) 150 mg 00 daily. Medical 24 hr Branch tablet busPIRone 2021-0 Yes [id number] 30mg Take 1 Un matt 30 mg 4-12 tablet by ity of tablet 00:00: mouth 2 [place] 00 (two) Medical times Branch daily. SERTraline 2021-0 Yes [id number] 200mg Take 2 Univers 100 mg 4-12 tablets by ity of tablet 00:00: mouth [place] 00 daily. Medical Branch buPROPion 2021-0 Yes [id number] 150mg Take 1 U nivers XL 4-12 tablet by ity of (WELLBUTRIN 00:00: mouth [place] XL) 150 mg 00 daily. Medical 24 hr Branch tablet busPIRone 2021-0 Yes [id number] 30mg Take 1 Un matt 30 mg 4-12 tablet by ity of tablet 00:00: mouth 2 [place] 00 (two) Medical times Branch daily. SERTraline 2021-0 Yes [id number] 200mg Take 2 Univers 100 mg 4-12 tablets by ity of tablet 00:00: mouth [place] 00 daily. Medical Branch buPROPion 2021-0 Yes [id number] 150mg Take 1 U nivers XL 4-12 tablet by ity of (WELLBUTRIN 00:00: mouth [place] XL) 150 mg 00 daily. Medical 24 hr Branch tablet busPIRone 2021-0 Yes [id number] 30mg Take 1 Un matt 30 mg 4-12 tablet by ity of tablet 00:00: mouth 2 00 (two) Medical times Branch daily. SERTraline 2021-0 Yes [id number] 200mg Take 2 Univers 100 mg 4-12 tablets by ity of tablet 00:00: mouth [place] 00 daily. Medical Branch buPROPion 2021-0 Yes [id number] 150mg Take 1 U nivers XL 4-12 tablet by ity of (WELLBUTRIN 00:00: mouth [place] XL) 150 mg 00 daily. Medical 24 hr Branch tablet busPIRone 2021-0 Yes [id number] 30mg Take 1 Un matt 30 mg 4-12 tablet by ity of tablet 00:00: mouth 2 (two) Medical times Branch daily. SERTraline 2021-0 Yes [id number] 200mg Take 2 Univers 100 mg 4-12 tablets by ity of tablet 00:00: mouth [place] 00 daily. Medical Branch buPROPion 2021-0 Yes [id number] 150mg Take 1 U nivers XL 4-12 tablet by ity of (WELLBUTRIN 00:00: mouth [place] XL) 150 mg 00 daily. Medical 24 hr Branch tablet busPIRone 2021-0 Yes [id number] 30mg Take 1 Un matt 30 mg 4-12 tablet by ity of tablet 00:00: mouth 2 00 (two) Medical times Branch daily. SERTraline 2021-0 Yes [id number] 200mg Take 2 Univers 100 mg 4-12 tablets by ity of tablet 00:00: mouth [place] 00 daily. Medical Branch buPROPion 2021-0 Yes [id number] 150mg Take 1 U nivers XL 4-12 tablet by ity of (WELLBUTRIN 00:00: mouth [place] XL) 150 mg 00 daily. Medical 24 hr Branch tablet busPIRone 2021-0 Yes [id number] 30mg Take 1 Un matt 30 mg 4-12 tablet by ity of tablet 00:00: mouth 2 00 (two) Medical times Branch daily. SERTraline 2021-0 Yes [id number] 200mg Take 2 Univers 100 mg 4-12 tablets by ity of tablet 00:00: mouth [place] 00 daily. Medical Branch buPROPion 2021-0 Yes [id number] 150mg Take 1 U nivers XL 4-12 tablet by ity of (WELLBUTRIN 00:00: mouth [place] XL) 150 mg 00 daily. Medical 24 hr Branch tablet busPIRone 2021-0 Yes [id number] 30mg Take 1 Un matt 30 mg 4-12 tablet by ity of tablet 00:00: mouth 2 [place] 00 (two) Medical times Branch daily. SERTraline 2021-0 Yes [id number] 200mg Take 2 Univers 100 mg 4-12 tablets by ity of tablet 00:00: mouth [place] 00 daily. Medical Branch buPROPion 2021-0 Yes [id number] 150mg Take 1 U nivers XL 4-12 tablet by ity of (WELLBUTRIN 00:00: mouth [place] XL) 150 mg 00 daily. Medical 24 hr Branch tablet busPIRone 2021-0 Yes [id number] 30mg Take 1 Un matt 30 mg 4-12 tablet by ity of tablet 00:00: mouth 2 [place] 00 (two) Medical times Branch daily. SERTraline 2021-0 Yes [id number] 200mg Take 2 Univers 100 mg 4-12 tablets by ity of tablet 00:00: mouth [place] 00 daily. Medical Branch buPROPion 2021-0 Yes [id number] 150mg Take 1 U nivers XL 4-12 tablet by ity of (WELLBUTRIN 00:00: mouth [place] XL) 150 mg 00 daily. Medical 24 hr Branch tablet busPIRone 2021-0 Yes [id number] 30mg Take 1 Un matt 30 mg 4-12 tablet by ity of tablet 00:00: mouth 2 [place] 00 (two) Medical times Branch daily. SERTraline 2021-0 Yes [id number] 200mg Take 2 Univers 100 mg 4-12 tablets by ity of tablet 00:00: mouth [place] 00 daily. Medical Branch buPROPion 2021-0 Yes [id number] 150mg Take 1 U nivers XL 4-12 tablet by ity of (WELLBUTRIN 00:00: mouth [place] XL) 150 mg 00 daily. Medical 24 hr Branch tablet busPIRone 2021-0 Yes [id number] 30mg Take 1 Un matt 30 mg 4-12 tablet by ity of tablet 00:00: mouth 2 [place] 00 (two) Medical times Branch daily. SERTraline 2021-0 Yes [id number] 200mg Take 2 Univers 100 mg 4-12 tablets by ity of tablet 00:00: mouth [place] 00 daily. Medical Branch buPROPion 2021-0 Yes [id number] 150mg Take 1 U nivers XL 4-12 tablet by ity of (WELLBUTRIN 00:00: mouth [place] XL) 150 mg 00 daily. Medical 24 hr Branch tablet busPIRone 2021-0 Yes [id number] 30mg Take 1 Un matt 30 mg 4-12 tablet by ity of tablet 00:00: mouth 2 [place] 00 (two) Medical times Branch daily. SERTraline 2021-0 Yes [id number] 200mg Take 2 Univers 100 mg 4-12 tablets by ity of tablet 00:00: mouth [place] 00 daily. Medical Branch buPROPion 2021-0 Yes [id number] 150mg Take 1 U nivers XL 4-12 tablet by ity of (WELLBUTRIN 00:00: mouth [place] XL) 150 mg 00 daily. Medical 24 hr Branch tablet busPIRone 2021-0 Yes [id number] 30mg Take 1 Un matt 30 mg 4-12 tablet by ity of tablet 00:00: mouth 2 [place] 00 (two) Medical times Branch daily. SERTraline 2021-0 Yes [id number] 200mg Take 2 [facility] 100 mg 4-12 tablets by [facility] of tablet 00:00: mouth [place] 00 daily. Medical Branch buPROPion 2021-0 Yes [id number] 150mg Take 1 U nivers XL 4-12 tablet by ity of (WELLBUTRIN 00:00: mouth [place] XL) 150 mg 00 daily. Medical 24 hr Branch tablet busPIRone 2021-0 Yes [id number] 30mg Take 1 Un matt 30 mg 4-12 tablet by ity of tablet 00:00: mouth 2 [place] 00 (two) Medical times Branch daily. SERTraline 2021-0 Yes [id number] 200mg Take 2 [facility] 100 mg 4-12 tablets by ity of tablet 00:00: mouth [place] 00 daily. Medical Branch buPROPion 2021-0 Yes [id number] 150mg Take 1 [facility] nivers XL 4-12 tablet by ity of (WELLBUTRIN 00:00: mouth [place] XL) 150 mg 00 daily. Medical 24 hr Branch tablet busPIRone 2021-0 Yes [id number] 30mg Take 1 Un matt 30 mg 4-12 tablet by ity of tablet 00:00: mouth 2 [place] 00 (two) Medical times Branch daily. SERTraline 2021-0 Yes [id number] 200mg Take 2 [facility] 100 mg 4-12 tablets by ity of tablet 00:00: mouth [place] 00 daily. Medical Branch buPROPion 2021-0 Yes [id number] 150mg Take 1 U nivers XL 4-12 tablet by ity of (WELLBUTRIN 00:00: mouth [place] XL) 150 mg 00 daily. Medical 24 hr Branch tablet busPIRone 2021-0 Yes [id number] 30mg Take 1 Un matt 30 mg 4-12 tablet by ity of tablet 00:00: mouth 2 [place] 00 (two) Medical times Branch daily. SERTraline 2021-0 Yes [id number] 200mg Take 2 [facility] 100 mg 4-12 tablets by ity of tablet 00:00: mouth [place] 00 daily. Medical Branch buPROPion 2021-0 Yes [id number] 150mg Take 1 U nivers XL 4-12 tablet by ity of (WELLBUTRIN 00:00: mouth [place] XL) 150 mg 00 daily. Medical 24 hr Branch tablet busPIRone 2021-0 Yes [id number] 30mg Take 1 Un matt 30 mg 4-12 tablet by ity of tablet 00:00: mouth 2 [place] 00 (two) Medical times Branch daily. SERTraline 2021-0 Yes [id number] 200mg Take 2 [facility] 100 mg 4-12 tablets by ity of tablet 00:00: mouth [place] 00 daily. Medical Branch raltegravir 2021-0 Yes [id number] 400mg Take 1 [facility] (ISENTRESS) 3-28 tablet by ity of 400 mg 00:00: mouth 2 [place] tablet 00 (two) Medical times Branch daily. raltegravir 2021-0 Yes [id number] 400mg Take 1 [facility] (ISENTRESS) 3-28 tablet by ity of 400 mg 00:00: mouth 2 [place] tablet 00 (two) Medical times Branch daily. raltegravir 2021-0 Yes [id number] 400mg Take 1 [facility] (ISENTRESS) 3-28 tablet by ity of 400 mg 00:00: mouth 2 [place] tablet 00 (two) Medical times Branch daily. raltegravir 2022-0 Yes [id number] 400mg Take 1 [facility] (ISENTRESS) 3-28 tablet by ity of 400 mg 00:00: mouth 2 [place] tablet 00 (two) Medical times Branch daily. raltegravir 2-0 Yes [id number] 400mg Take 1 [facility] (ISENTRESS) 3-28 tablet by ity of 400 mg 00:00: mouth 2 [place] tablet 00 (two) Medical times Branch daily. raltegravir 2-0 Yes [id number] 400mg Take 1 [facility] (ISENTRESS) 3-28 tablet by ity of 400 mg 00:00: mouth 2 [place] tablet 00 (two) Medical times Branch daily. raltegravir 2-0 Yes [id number] 400mg Take 1 [facility] (ISENTRESS) 3-28 tablet by ity of 400 mg 00:00: mouth 2 [place] tablet 00 (two) Medical times Branch daily. raltegravir 2021-0 Yes [id number] 400mg Take 1 [facility] (ISENTRESS) 3-28 tablet by ity of 400 mg 00:00: mouth 2 [place] tablet 00 (two) Medical times Branch daily. raltegravir 2-0 Yes [id number] 400mg Take 1 [facility] (ISENTRESS) 3-28 tablet by ity of 400 mg 00:00: mouth 2 [place] tablet 00 (two) Medical times Branch daily. raltegravir 2-0 Yes [id number] 400mg Take 1 [facility] (ISENTRESS) 3-28 tablet by ity of 400 mg 00:00: mouth 2 [place] tablet 00 (two) Medical times Branch daily. raltegravir 2-0 Yes [id number] 400mg Take 1 [facility] (ISENTRESS) 3-28 tablet by ity of 400 mg 00:00: mouth 2 [place] tablet 00 (two) Medical times Branch daily. raltegravir 2022-0 Yes [id number] 400mg Take 1 [facility] (ISENTRESS) 3-28 tablet by ity of 400 mg 00:00: mouth 2 [place] tablet 00 (two) Medical times Branch daily. raltegravir 2022-0 Yes [id number] 400mg Take 1 [facility] (ISENTRESS) 3-28 tablet by ity of 400 mg 00:00: mouth 2 [place] tablet 00 (two) Medical times Branch daily. raltegravir 2021-0 Yes [id number] 400mg Take 1 [facility] (ISENTRESS) 3-28 tablet by ity of 400 mg 00:00: mouth 2 [place] tablet 00 (two) Medical times Branch daily. raltegravir 2021-0 Yes [id number] 400mg Take 1 [facility] (ISENTRESS) 3-28 tablet by ity of 400 mg 00:00: mouth 2 [place] tablet 00 (two) Medical times Branch daily. raltegravir 0 Yes [id number] 400mg Take 1 [facility] (ISENTRESS) 3-28 tablet by ity of 400 mg 00:00: mouth 2 [place] tablet 00 (two) Medical times Branch daily. raltegravir 2021-0 Yes [id number] 400mg Take 1 [facility] (ISENTRESS) 3-28 tablet by ity of 400 mg 00:00: mouth 2 [place] tablet 00 (two) Medical times Branch daily. raltegravir 0 Yes [id number] 400mg Take 1 [facility] (ISENTRESS) 3-28 tablet by ity of 400 mg 00:00: mouth 2 [place] tablet 00 (two) Medical times Branch daily. raltegravir 2021-0 Yes [id number] 400mg Take 1 [facility] (ISENTRESS) 3-28 tablet by ity of 400 mg 00:00: mouth 2 [place] tablet 00 (two) Medical times Branch daily. raltegravir 2021-0 Yes [id number] 400mg Take 1 [facility] (ISENTRESS) 3-28 tablet by ity of 400 mg 00:00: mouth 2 [place] tablet 00 (two) Medical times Branch daily. raltegravir 0 2022- No [id number] 400mg Take 1 [facility] (ISENTRESS) 3-28 05-08 tablet by it y of 400 mg 00:00: 00:00 mouth 2 [place] tablet 00 :00 (two) Medical times Branch daily. LORazepam 1 0 2- No [id number] 1mg Take 1 [facility] mg tablet 3-21 [...] times a tablet day. emtricitabi 2021- No [id number] Take one [facility] ne-tenofovi -20 09-12 po daily ity of r alafen 00:00: 00:00 [place] (DESCOVY) 00 :00 Medical tablet Branch metoprolol Yes [id number] Take 1 [facility] tartrate 7-26 tablet [facility] (Lopressor) 00:00: (100 mg 100 MG 00 total) by tablet mouth 2 (two) times a day AND 0.5 tablets (50 mg total) every night. metoprolol Yes [id number] Take 1 [facility] tartrate 7-26 [facility] [...] (affected area in groin) hydrALAZINE Yes 50mg Q.[id number] Take 50 mg [facility] (APRESOLINE 7-19 [id number] mouth [facility] ) 50 MG [...] area in groin) hydrALAZINE 0 Yes 50mg Q.[id number] Take 50 mg [facility] (APRESOLINE 7-19 [id number] [facility] mouth [facility] ) 50 MG [...] area in groin) hydrALAZINE 2021-0 Yes 50mg Q.[id number] Take 50 mg [facility] (APRESOLINE 7-19 [id number] [address] mouth 3 [facility] ) 50 MG [...] (affected area in groin) hydrALAZINE Yes 50mg Q.[id number] Take 50 mg [facility] (APRESOLINE 7-19 [id number] [address] mouth 3 st ) 50 MG [...] area in groin) hydrALAZINE 0 Yes 50mg Q.[id number] Take 50 mg [facility] (APRESOLINE 7-19 [id number] [address] mouth 3 [facility] ) 50 MG [...] area in groin) hydrALAZINE 0 Yes 50mg Q.[id number] Take 50 mg [facility] (APRESOLINE 7-19 [id number] [address] mouth 3 [facility] ) 50 MG [...] (affected area in groin) hydrALAZINE Yes 50mg Q.[id number] Take 50 mg [facility] (APRESOLINE 7-[id number] mouth [facility] ) 50 MG [...] (affected area in groin) hydrALAZINE Yes 50mg Q.[id number] Take 50 mg [facility] (APRESOLINE 7-19 [id number] [address] mouth 3 st ) 50 MG [...] area in groin) hydrALAZINE 0 Yes 50mg Q.[id number] Take 50 mg [facility] (APRESOLINE 7-19 [id number] mouth 3 [facility] ) 50 MG [...] area in groin) hydrALAZINE 0 Yes 50mg Q.[id number] Take 50 mg [facility] (APRESOLINE 7-19 [id number] [address] mouth 3 [facility] ) 50 MG [...] (affected area in groin) hydrALAZINE Yes 50mg Q.[id number] Take 50 mg [facility] (APRESOLINE 7-19 [id number] [address] mouth 3 [facility] ) 50 MG [...] (affected area in groin) hydrALAZINE Yes 50mg Q.[id number] Take 50 mg [facility] (APRESOLINE 7-19 [id number] mouth 3 [address] ) 50 MG [...] area in groin) hydrALAZINE 0 Yes 50mg Q.[id number] Take 50 mg [facility] (APRESOLINE 7-19 [id number] [address] mouth 3 [facility] ) 50 MG [...] (affected area in groin) hydrALAZINE Yes 50mg Q.94010197 Take 50 mg [facility] (APRESOLINE 7-19 [id number] mouth 3 [facility] ) 50 MG [...] area in groin) hydrALAZINE 0 Yes 50mg Q.[id number] Take 50 mg [facility] (APRESOLINE 7-19 [id number] [address] mouth 3 st ) 50 MG [...] area in groin) hydrALAZINE 0 Yes 50mg Q.[id number] Take 50 mg [facility] (APRESOLINE 7-19 [id number] [address] mouth [facility] ) 50 MG [...] (affected area in groin) hydrALAZINE Yes 50mg Q.98926145 Take 50 mg [facility] (APRESOLINE 7-19 [id number] [address] mouth 3 [facility] ) 50 MG [...] area in groin) hydrALAZINE 0 Yes 50mg Q.64520313 Take 50 mg [facility] (APRESOLINE 7-19 [id number] mouth 3 [facility] ) 50 MG [...] area in groin) hydrALAZINE 0 Yes 50mg Q.[id number] Take 50 mg [facility] (APRESOLINE 7-19 [id number] mouth 3 [facility] ) 50 MG [...] area in groin) hydrALAZINE 0 Yes 50mg Q.[id number] Take 50 mg [facility] (APRESOLINE 7-19 [id number] [address] mouth 3 [facility] ) 50 MG [...] (affected area in groin) hydrALAZINE Yes 50mg Q.[id number] Take 50 mg [facility] (APRESOLINE 7-19 [id number] [address] mouth 3 [facility] ) 50 MG [...] area in groin) hydrALAZINE 2020-0 Yes 50mg Q.[id number] Take 50 mg [facility] (APRESOLINE 7-[id number] mouth 3 [facility] ) 50 MG [...] area in groin) hydrALAZINE 0 Yes 50mg Q.[id number] Take 50 mg [facility] (APRESOLINE 7-19 [id number] mouth 3 [address] ) 50 MG [...] (affected area in groin) hydrALAZINE Yes 50mg Q.[id number] Take 50 mg [facility] (APRESOLINE 7-[id number] mouth 3 [address] ) 50 MG [...] area in groin) hydrALAZINE 0 Yes 50mg Q.79094155 Take 50 mg [facility] (APRESOLINE 7-19 [id number] mouth [facility] ) 50 MG [...] area in groin) hydrALAZINE 0 Yes 50mg Q.[id number] Take 50 mg [facility] (APRESOLINE 7-[id number] mouth [address] ) 50 MG [...] area in groin) hydrALAZINE 0 Yes 50mg Q.65194037 Take 50 mg [facility] (APRESOLINE 7-19 [id number] [address] mouth 3 [facility] ) 50 MG [...] area in groin) hydrALAZINE 0 Yes 50mg Q.[id number] Take 50 mg [facility] (APRESOLINE 7-[id number] mouth [address] ) 50 MG [...] area in groin) hydrALAZINE 2020-0 Yes 50mg Q.[id number] Take 50 mg [facility] (APRESOLINE 7-19 [id number] [address] mouth [facility] ) 50 MG [...] area in groin) hydrALAZINE 0 Yes 50mg Q.95604981 Take 50 mg [facility] (APRESOLINE 7-[id number] mouth 3 [address] ) 50 MG [...] (affected area in groin) hydrALAZINE Yes 50mg Q.[id number] Take 50 mg [facility] (APRESOLINE - [id number] by mouth 3 st ) 50 MG [...] area in groin) hydrALAZINE 0 Yes 50mg Q.[id number] Take 50 mg [facility] (APRESOLINE -19 [id number] [address] mouth 3 [address] ) 50 MG [...] area in groin) hydrALAZINE 0 Yes 50mg Q.[id number] Take 50 mg [facility] (APRESOLINE 7-[id number] mouth [address] ) 50 MG [...] clobetasol 0 Yes Q.5D Apply 1 [facility] ajson (TEMOVATE) 12-[address] 0.05 % 10:51: [facility] topically l 2 (two) times a day. (affected area in groin) hydrALAZINE Yes 50mg Q.[id number] Take 50 mg [facility] (APRESOLINE 7-19 [id number] [address] mouth [facility] ) 50 MG [...] area in groin) hydrALAZINE 0 Yes 50mg Q.76002572 Take 50 mg [facility] (APRESOLINE -19 [id number] [address] mouth [facility] ) 50 MG [...] area in groin) hydrALAZINE 0 Yes 50mg Q.[id number] Take 50 mg [facility] (APRESOLINE 7-19 [id number] mouth 3 [facility] ) 50 MG [...] area in groin) hydrALAZINE 0 Yes 50mg Q.[id number] Take 50 mg [facility] (APRESOLINE 7-[id number] mouth 3 [address] ) 50 MG [...] (affected area in groin) hydrALAZINE Yes 50mg Q.[id number] Take 50 mg [facility] (APRESOLINE 7-19 [id number] mouth [facility] [address] ) 50 MG [...] area in groin) hydrALAZINE 2020-0 Yes 50mg Q.[id number] Take 50 mg [facility] (APRESOLINE 7-19 [id number] [address] mouth 3 [facility] ) 50 MG [...] area in groin) hydrALAZINE 0 Yes 50mg Q.[id number] Take 50 mg [facility] (APRESOLINE 7-[id number] mouth [address] ) 50 MG [...] (affected area in groin) hydrALAZINE Yes 50mg Q.[id number] Take 50 mg [facility] (APRESOLINE 7-19 [id number] [address] mouth 3 [facility] ) 50 MG [...] area in groin) hydrALAZINE 0 Yes 50mg Q.37562828 Take 50 mg [facility] (APRESOLINE -19 [id number] by mouth 3 [facility] ) 50 MG [...] area in groin) hydrALAZINE 0 Yes 50mg Q.[id number] Take 50 mg [facility] (APRESOLINE 7-[id number] mouth 3 [address] ) 50 MG [...] area in groin) hydrALAZINE 0 Yes 50mg Q.[id number] Take 50 mg [facility] (APRESOLINE 7-19 [id number] mouth 3 [address] ) 50 MG [...] area in groin) hydrALAZINE 0 Yes 50mg Q.69460882 Take 50 mg [facility] (APRESOLINE 7-[id number] mouth 3 [address] ) 50 MG [...] area in groin) hydrALAZINE 2020-0 Yes 50mg Q.62109300 Take 50 mg [facility] (APRESOLINE 7-[id number] mouth 3 [address] ) 50 MG [...] area in groin) hydrALAZINE 0 Yes 50mg Q.[id number] Take 50 mg [facility] (APRESOLINE 7-19 [id number] [address] mouth 3 [facility] ) 50 MG [...] (affected area in groin) hydrALAZINE Yes 50mg Q.58458025 Take 50 mg [facility] (APRESOLINE - [id number] by mouth 3 st ) 50 MG [...] area in groin) hydrALAZINE 0 Yes 50mg Q.[id number] Take 50 mg [facility] (APRESOLINE -19 [id number] by mouth 3 [facility] ) 50 MG [...] area in groin) hydrALAZINE 0 Yes 50mg Q.55111021 Take 50 mg [facility] (APRESOLINE 7-19 [id number] mouth 3 [address] ) 50 MG [...] (affected area in groin) hydrALAZINE Yes 50mg Q.96161531 Take 50 mg [facility] (APRESOLINE 7-19 [id number] [address] mouth 3 [facility] ) 50 MG [...] area in groin) hydrALAZINE 0 Yes 50mg Q.62405804 Take 50 mg [facility] (APRESOLINE -19 [id number] [address] mouth 3 [facility] ) 50 MG [...] area in groin) hydrALAZINE 2020-0 Yes 50mg Q.29931971 Take 50 mg [facility] (APRESOLINE 7-19 [id number] by mouth 3 [facility] ) 50 MG [...] area in groin) hydrALAZINE 0 Yes 50mg Q.[id number] Take 50 mg [facility] (APRESOLINE 7-19 [id number] mouth 3 [facility] ) 50 MG [...] (affected area in groin) hydrALAZINE Yes 50mg Q.[id number] Take 50 mg [facility] (APRESOLINE 7-19 [id number] by mouth 3 [facility] ) 50 MG [...] area in groin) hydrALAZINE 2020-0 Yes 50mg Q.89628783 Take 50 mg [facility] (APRESOLINE 7-19 [id number] mouth 3 [address] ) 50 MG [...] area in groin) hydrALAZINE 2020-0 Yes 50mg Q.[id number] Take 50 mg [facility] (APRESOLINE 7-[id number] mouth 3 [address] ) 50 MG [...] (affected area in groin) hydrALAZINE Yes 50mg Q.[id number] Take 50 mg [facility] (APRESOLINE 7-[id number] mouth 3 [address] ) 50 MG [...] area in groin) hydrALAZINE 0 Yes 50mg Q.[id number] Take 50 mg [facility] (APRESOLINE 7-[id number] mouth 3 [address] ) 50 MG [...] area in groin) hydrALAZINE 2020-0 Yes 50mg Q.04434178 Take 50 mg [facility] (APRESOLINE 7-[id number] mouth 3 [address] ) 50 MG [...] (affected area in groin) hydrALAZINE Yes 50mg Q.[id number] Take 50 mg [facility] (APRESOLINE 7-[id number] mouth 3 [address] ) 50 MG [...] (affected area in groin) hydrALAZINE Yes 50mg Q.[id number] Take 50 mg [facility] (APRESOLINE 7-[id number] mouth 3 [address] ) 50 MG [...] area in groin) hydrALAZINE 0 Yes 50mg Q.[id number] Take 50 mg [facility] (APRESOLINE 7-[id number] mouth 3 [address] ) 50 MG [...] area in groin) hydrALAZINE 0 Yes 50mg Q.[id number] Take 50 mg [facility] (APRESOLINE 7-19 [id number] [address] mouth [address] ) 50 MG [...] (affected area in groin) hydrALAZINE Yes 50mg Q.[id number] Take 50 mg [facility] (APRESOLINE 7-[id number] mouth [address] ) 50 MG [...] area in groin) hydrALAZINE 0 Yes 50mg Q.[id number] Take 50 mg [facility] (APRESOLINE 7-[id number] mouth 3 [address] ) 50 MG [...] area in groin) hydrALAZINE 0 Yes 50mg Q.62509518 Take 50 mg [facility] (APRESOLINE 7-19 [id number] mouth 3 [address] ) 50 MG [...] (affected area in groin) hydrALAZINE Yes 50mg Q.[id number] Take 50 mg [facility] (APRESOLINE 7-[id number] mouth [address] ) 50 MG [...] area in groin) hydrALAZINE 0 Yes 50mg Q.[id number] Take 50 mg [facility] (APRESOLINE 7-[id number] mouth 3 [address] ) 50 MG [...] area in groin) hydrALAZINE 0 Yes 50mg Q.[id number] Take 50 mg [facility] (APRESOLINE 7-[id number] mouth 3 [address] ) 50 MG [...] (affected area in groin) hydrALAZINE Yes 50mg Q.[id number] Take 50 mg [facility] (APRESOLINE 7-[id number] mouth [address] ) 50 MG [...] area in groin) hydrALAZINE 0 Yes 50mg Q.[id number] Take 50 mg [facility] (APRESOLINE 7-[id number] mouth [address] ) 50 MG [...] area in groin) hydrALAZINE 2021-0 Yes 50mg Q.[id number] Take 50 mg [facility] (APRESOLINE 7-[id number] mouth [address] ) 50 MG [...] (affected area in groin) hydrALAZINE Yes 50mg Q.[id number] Take 50 mg [facility] (APRESOLINE 7-[id number] mouth [address] ) 50 MG [...] area in groin) hydrALAZINE 0 Yes 50mg Q.07974146 Take 50 mg [facility] (APRESOLINE 7-[id number] mouth [address] ) 50 MG [...] area in groin) hydrALAZINE 0 Yes 50mg Q.[id number] Take 50 mg [facility] (APRESOLINE 7-[id number] mouth [address] ) 50 MG [...] area in groin) hydrALAZINE 0 Yes 50mg Q.[id number] Take 50 mg [facility] (APRESOLINE 7-19 [id number] [address] mouth 3 [address] ) 50 MG [...] (affected area in groin) hydrALAZINE Yes 50mg Q.[id number] Take 50 mg [facility] (APRESOLINE 7-19 [id number] [address] mouth [facility] ) 50 MG [...] 25 before l breakfast. nystatin-tr 2021-0 Yes [id number] Apply to [facility] iamcinolone 7-06 area(s) 3 ity of cream 00:00: (three) [place] 00 times Medical daily. Branch nystatin-tr 2021-0 Yes [id number] Apply to [facility] iamcinolone 7-06 area(s) 3 ity of cream 00:00: (three) [place] 00 times Medical daily. Branch nystatin-tr 2021-0 Yes [id number] Apply to [facility] iamcinolone 7-06 area(s) 3 ity of cream 00:00: (three) [place] 00 times Medical daily. Branch nystatin-tr 2021-0 Yes [id number] Apply to [facility] iamcinolone 7-06 area(s) 3 ity of cream 00:00: (three) [place] 00 times Medical daily. Branch nystatin-tr 2021-0 Yes [id number] Apply to [facility] iamcinolone 7-06 area(s) 3 ity of cream 00:00: (three) [place] 00 times Medical daily. Branch nystatin-tr 2021-0 Yes [id number] Apply to [facility] iamcinolone 7-06 area(s) 3 ity of cream 00:00: (three) [place] 00 times Medical daily. Branch nystatin-tr 2021-0 Yes [id number] Apply to [facility] iamcinolone 7-06 area(s) 3 ity of cream 00:00: (three) [place] 00 times Medical daily. Branch nystatin-tr 2021-0 Yes [id number] Apply to [facility] iamcinolone 7-06 area(s) 3 ity of cream 00:00: (three) [place] 00 times Medical daily. Branch nystatin-tr 2021-0 Yes [id number] Apply to [facility] iamcinolone 7-06 area(s) 3 ity of cream 00:00: (three) [place] 00 times Medical daily. Branch nystatin-tr 2021-0 Yes [id number] Apply to [facility] iamcinolone 7-06 area(s) 3 ity of cream 00:00: (three) [place] 00 times Medical daily. Branch nystatin-tr 2021-0 Yes [id number] Apply to [facility] iamcinolone 7-06 area(s) 3 ity of cream 00:00: (three) [place] 00 times Medical daily. Branch nystatin-tr 2021-0 Yes [id number] Apply to [facility] iamcinolone 7-06 area(s) 3 ity of cream 00:00: (three) [place] 00 times Medical daily. Branch nystatin-tr 2021-0 Yes [id number] Apply to [facility] iamcinolone 7-06 area(s) 3 ity of cream 00:00: (three) [place] 00 times Medical daily. Branch nystatin-tr 2021-0 Yes [id number] Apply to [facility] iamcinolone 7-06 area(s) 3 ity of cream 00:00: (three) [place] 00 times Medical daily. Branch nystatin-tr 2021-0 Yes [id number] Apply to [facility] iamcinolone 7-06 area(s) 3 ity of cream 00:00: (three) [place] 00 times Medical daily. Branch nystatin-tr 2021-0 Yes [id number] Apply to [facility] iamcinolone 7-06 area(s) 3 ity of cream 00:00: (three) [place] 00 times Medical daily. Branch nystatin-tr 2021-0 Yes [id number] Apply to [facility] iamcinolone 7-06 area(s) 3 ity of cream 00:00: (three) [place] 00 times Medical daily. Branch nystatin-tr 2021-0 Yes [id number] Apply to [facility] iamcinolone 7-06 area(s) 3 ity of cream 00:00: (three) [place] 00 times Medical daily. Branch nystatin-tr 2021-0 Yes [id number] Apply to [facility] iamcinolone 7-06 area(s) 3 ity of cream 00:00: (three) [place] 00 times Medical daily. Branch nystatin-tr 2021-0 Yes [id number] Apply to [facility] iamcinolone 7-06 area(s) 3 ity of cream 00:00: (three) [place] 00 times Medical daily. Branch nystatin-tr 2021-0 Yes [id number] Apply to [facility] iamcinolone 7-06 area(s) 3 ity of cream 00:00: (three) [place] 00 times Medical daily. Branch nystatin-tr 2021-0 Yes [id number] Apply to [facility] iainolone 7-06 area(s) 3 ity of cream 00:00: (three) [place] 00 times Medical daily. Branch nystatin-tr 2021-0 Yes [id number] Apply to [facility] iamcinolone 7-06 area(s) 3 ity of cream 00:00: (three) [place] 00 times Medical daily. Branch nystatin-tr 2021-0 Yes [id number] Apply to [facility] iamcinolone 7-06 area(s) 3 ity of cream 00:00: (three) [place] 00 times Medical daily. Branch nystatin-tr 2021-0 Yes [id number] Apply to [facility] iamcinolone 7-06 area(s) 3 ity of cream 00:00: (three) [place] 00 times Medical daily. Branch nystatin-tr 2021-0 Yes [id number] Apply to [facility] iamcinolone 7-06 area(s) 3 ity of cream 00:00: (three) [place] 00 times Medical daily. Branch nystatin-tr 2021-0 Yes [id number] Apply to [facility] iamcinolone 7-06 area(s) 3 ity of cream 00:00: (three) [place] 00 times Medical daily. Branch nystatin-tr 2021-0 Yes [id number] Apply to [facility] iamcinolone 7-06 area(s) 3 ity of cream 00:00: (three) [place] 00 times Medical daily. Branch budesonide- 2020-0 2021- No 1{puff} QD Inhale 1 [facility] formoteroL 6-25 06-[address] (SYMBICORT) 14:37: 00:00 morning. H ospita 160-4.5 02 :00 l mcg/actuati on inhaler hydrALAZINE 2020-0 Yes [id number] 50mg Q.[id number] Take 1 [facility] (Apresoline 6-11 [id number] tablet (50 Health ) 50 MG 00:00: 3D mg total) tablet 00 by mouth 3 (three) times a day. hydrALAZINE 2020-0 Yes [id number] 50mg Q.66939064 Take 1 [facility] (Apresoline 6-11 [id number] tablet (50 Health ) 50 MG 00:00: [...] % 00:00: ointment 00 nystatin 2020- No [id number] Q.25D Take 5 mL [facility] (MYCOSTATIN 10-06 [...] times a day for 10 days. clobetasol 2021-0 Yes 1{appli Q12H Apply 1 [...] ia 4-10 (Same as: l 14:00: Norvasc) [place] 00 emtricitabi No Notes: Caesar lisa ne 200 MG / 4-10 (Same as: l tenofovir 14:00: Descovy) Herm ariel alafenamide 00 Non-formul 25 MG Oral nancy Tablet [Descovy] pantoprazol No Notes: Caesar lisa e 4-10 Tablet l 14:00: should not [place] 00 be chewed or crushed. (Same as: Protonix) Amiodarone No Notes: Memor ia 4-10 (Same as: l 14:00: Cordarone) [place] Amlodipine No Notes: Memor ia 4-10 (Same as: l 14:00: Norvasc) [place] emtricitabi No Notes: Caesar lisa ne 200 [...] ia 4-10 (Same as: l 14:00: Cordarone) [place] Amlodipine No Notes: Memor ia 4-10 (Same [...] e 4-10 Tablet l 14:00: should not [place] 00 be chewed or crushed. (Same as: [...] e 4-10 Tablet l 14:00: should not [place] 00 be chewed or crushed. (Same as: [...] e 4-10 Tablet l 14:00: should not [place] 00 be chewed or crushed. (Same as: [...] 0.9% 4-10 (Same as: l 02:00: BD [place] 00 Posiflush) Eliquis No Notes: Memoria 4-10 Same as: l 02:00: Eliquis [place] Hydralazine No Notes: Caesar lisa Hydrochlori 4-10 (Same as: l de 50 MG 02:00: Apresoline Her mitchell Oral Tablet 00 ) May interfere w/enteral feedings Take With Food Sucralfate No Notes: May M emoria 4-10 interfere l 02:00: w/enteral [place] 00 feeds - Take 1 hr before or 2 hr after antacids, dairy pdt, meals & minerals - On empty stomach. For patients unable to swallow tablet, dissolve in 10mL - 30mL of water or juice and stir before giving. (Same As: Carafate) Saline No Notes: Memoria Flush 0.9% 4-10 (Same as: l 02:00: BD [place] 00 Posiflush) Eliquis No Notes: Memoria 4-10 Same as: l 02:00: Eliquis [place] 00 Hydralazine No Notes: Caesar lisa Hydrochlori 4-10 (Same as: l de 50 MG 02:00: Apresoline Her mitchell Oral Tablet 00 ) May interfere w/enteral feedings Take With Food Sucralfate No Notes: May M emoria 4-10 interfere l 02:00: w/enteral [place] 00 feeds - Take 1 hr before [...] M emoria 4-10 interfere l 02:00: w/enteral [place] 00 feeds - Take 1 hr before [...] Memoria 4-10 Same as: l 02:00: Eliquis [place] Hydralazine No Notes: Caesar lisa Hydrochlori 4-10 [...] not exceed l #3 00:12: 4gm/day of [place] acetaminop hen. (Same as: Tylenol with Codeine # 3) acetaminoph No Notes: Do M emoria en-codeine 4-10 not exceed l #3 00:12: 4gm/day of [place] acetaminop hen. (Same as: Tylenol with Codeine # 3) acetaminoph No Notes: Do M emoria en-codeine 4-10 not exceed l #3 00:12: 4gm/day of [place] acetaminop hen. (Same as: Tylenol with Codeine [...] oria - tab, l 22:00: Route: PO, [place] 00 Drug form: TAB, BID, Dosing Weight [...] tab, l Tablet 22:00: Route: [facility], [place] [facility] Drug form: TAB, BID, Dosing Weight [...] tartrate 4-09 tab, l 22:00: Route: PO, [place] 00 Drug form: TAB, BID, Dosing Weight [...] oria 4-09 tab, l 22:00: Route: PO, [place] 00 Drug form: TAB, BID, Dosing Weight 97.273, kg, Start date: 08/29/20 17:00:00 CDT, Duration: 30 day, Stop date: 09/28/20 9:00:00 CDT metoprolol 1-0 No 100 mg, 1 Me moria tartrate 4-09 tab, l 22:00: Route: PO, [place] 00 Drug form: TAB, BID, Dosing Weight [...] Notes: Memoria 4-09 (Same l 17:07: as:MORPhin [place] 00 e Sulfate) Morphine No Notes: Memoria 4-09 (Same l 17:07: as:MORPhin [place] 00 e Sulfate) Morphine No Notes: Memoria 4-09 (Same l 17:07: as:MORPhin [place] 00 e Sulfate) Morphine No Notes: Memoria 4-09 (Same l 17:07: as:MORPhin [place] 00 e Sulfate) Morphine No Notes: Memoria 4-09 (Same l 17:07: as:MORPhin [place] 00 e Sulfate) Morphine No Notes: Memoria 4-09 (Same l 17:07: as:MORPhin [place] 00 e Sulfate) buPROPion No 150 mg, [...] tab, PO, l oral 15:27: Daily, # [place] enteric 00 30 tab, 0 coated Refill(s), tablet Pharmacy: [facility] 149, 162.56, cm, 08/29/20 5:30:00 CDT, Height, 97.273, kg, 08/29/20 5:30:00 CDT, Weight pantoprazol 2021-0 Yes 40 mg = 1 M emoria e 40 mg 4-09 tab, PO, l oral 15:27: Daily, # [place] enteric 00 30 tab, 0 coated Refill(s), tablet [facility], 162.56, cm, 08/29/20 5:30:00 CDT, Height, 97.273, kg, 08/29/20 5:30:00 CDT, Weight pantoprazol 2021-0 Yes 40 mg = 1 M emoria e 40 mg 4-09 tab, PO, l oral 15:27: Daily, # [place] enteric 00 30 tab, 0 coated Refill(s), tablet [facility], 162.56, cm, 08/29/20 5:30:00 CDT, Height, 97.273, kg, 08/29/20 5:30:00 CDT, Weight pantoprazol 2021-0 Yes 40 mg = 1 M emoria e 40 mg 4-09 tab, PO, l oral 15:27: Daily, # [place] enteric 00 30 tab, 0 coated Refill(s), tablet [facility], 162.56, cm, 08/29/20 5:30:00 CDT, Height, 97.273, kg, 08/29/20 5:30:00 CDT, Weight pantoprazol 2021-0 Yes 40 mg = 1 M emoria e 40 mg 4-09 tab, PO, l oral 15:27: Daily, # [place] enteric 00 30 tab, 0 coated Refill(s), tablet [facility], 162.56, cm, 08/29/20 5:30:00 CDT, Height, 97.273, kg, 08/29/20 5:30:00 CDT, Weight pantoprazol 2021-0 Yes 40 mg = 1 M emoria e 40 mg 4-09 tab, PO, l oral 15:27: Daily, # [place] enteric 00 30 tab, 0 coated Refill(s), tablet Pharmacy: [facility] 149, 162.56, cm, 08/29/20 5:30:00 CDT, Height, 97.273, kg, 08/29/20 5:30:00 CDT, Weight pantoprazol 2020-0 Yes 40 mg = 1 M emoria e 40 mg 4-09 tab, PO, l oral 15:27: Daily, # [place] enteric 00 30 tab, 0 coated Refill(s), tablet Pharmacy: [facility] 149, 162.56, cm, 08/29/20 5:30:00 CDT, Height, 97.273, kg, 08/29/20 5:30:00 CDT, Weight pantoprazol 2020-0 No 40 mg = 1 M emoria e 40 mg 4-09 tab, PO, l oral 15:26: Daily, # [place] enteric 00 30 tab, 0 coated Refill(s) tablet sucralfate 2020-0 Yes 1 gm = 1 Mem oria 1 g oral 4-09 tab, PO, l tablet 15:26: Q12H, # 28 Skylar nn 00 tab, 0 Refill(s), Pharmacy: [facility] 149, 162.56, cm, 08/29/20 5:30:00 CDT, [...] Skylar nn 00 tab, 0 Refill(s), Pharmacy: [facility] 149, 162.56, cm, 08/29/20 5:30:00 CDT, [...] Skylar nn 00 tab, 0 Refill(s), Pharmacy: [facility] 149, 162.56, cm, 08/29/20 5:30:00 CDT, [...] Skylar nn 00 tab, 0 Refill(s), Pharmacy: [facility] 149, 162.56, cm, 08/29/20 5:30:00 CDT, Height, 97.273, kg, 08/29/20 5:30:00 CDT, Weight pantoprazol 2020-0 No 40 mg = 1 M emoria e 40 mg 4-09 tab, PO, l oral 15:26: Daily, # [place] enteric 00 30 tab, 0 coated Refill(s) tablet sucralfate 2020-0 Yes 1 gm = 1 Mem oria 1 g oral 4-09 tab, PO, l tablet 15:26: Q12H, # 28 Skyl[place] nn 00 tab, 0 Refill(s), Pharmacy: [facility] 149, 162.56, cm, 08/29/20 5:30:00 CDT, [...] Skylar nn 00 tab, 0 Refill(s), Pharmacy: [facility] 149, 162.56, cm, 08/29/20 5:30:00 CDT, Height, 97.273, kg, 08/29/20 5:30:00 CDT, Weight pantoprazol No 40 mg = 1 M emoria e 40 mg 4-09 tab, PO, l oral 15:26: Daily, # [place] enteric 00 30 tab, 0 coated Refill(s) tablet sucralfate Yes 1 gm = 1 Mem oria 1 g oral 4-09 tab, PO, l tablet 15:26: Q12H, # 28 Skyl[place] nn 00 tab, 0 Refill(s), Pharmacy: [facility] 149, 162.56, cm, 08/29/20 5:30:00 CDT, Height, 97.273, kg, 08/29/20 5:30:00 CDT, Weight Saline No Notes: Memoria Flush 0.9% 4-09 (Same as: l 15:25: BD [place] 00 Posiflush) Lorazepam No Notes: Memori a 4-09 (Same as: l 15:25: Ativan) [place] 00 Saline No Notes: Memoria Flush 0.9% 4-09 (Same as: l 15:25: BD [place] 00 Posiflush) Lorazepam No Notes: Memori a 4-09 (Same as: l 15:25: Ativan) [place] Saline No Notes: Memoria Flush 0.9% 4-09 (Same as: l 15:25: BD [place] 00 Posiflush) Saline No Notes: Memoria Flush 0.9% 4-09 (Same as: l 15:25: BD [place] 00 Posiflush) Lorazepam No Notes: Memori a 4-09 (Same as: l 15:25: Ativan) [place] Lorazepam No Notes: Memori a 4-09 (Same as: l 15:25: Ativan) [place] Saline No Notes: Memoria Flush 0.9% 4-09 (Same as: l 15:25: BD [place] 00 Posiflush) Lorazepam No Notes: Memori a 4-09 (Same as: l 15:25: Ativan) [place] 00 Saline No Notes: Memoria Flush 0.9% 4-09 (Same as: l 15:25: BD [place] Posiflush) Lorazepam No Notes: Memori a 4-09 (Same as: l 15:25: Ativan) [place] 00 Saline No Notes: Memoria Flush 0.9% 4-09 (Same as: l 15:25: BD [place] Posiflush) Lorazepam No Notes: Memori a 4-09 (Same as: l 15:25: Ativan) [place] 00 Isuprel HCl No Route: IV, Memoria (ANES) 0.2 08-29 Drug form: l mg + 15:00: INJ, [place] 00 Dosing Weight 97.3, kg, Start date: 08/29/20 10:00:00 CDT, Stop date: 08/29/20 11:00:00 CDT Isuprel HCl No Route: IV, Memoria (ANES) 0.2 08-29 Drug form: l mg + 15:00: INJ, [place] Dosing Weight 97.3, kg, Start date: 08/29/20 10:00:00 CDT, Stop date: 08/29/20 11:00:00 CDT Isuprel HCl No Route: IV, Memoria (ANES) 0.2 08-29 Drug form: l mg + 15:00: INJ, [place] Dosing Weight 97.3, kg, Start date: 08/29/20 10:00:00 CDT, Stop date: 08/29/20 11:00:00 CDT Isuprel HCl No Route: IV, Memoria (ANES) 0.2 08-29 Drug form: l mg + 15:00: INJ, [place] Dosing Weight 97.3, kg, Start date: 08/29/20 [...] 08-29 Drug form: l 14:18: INJ, ONCE, [place] Stop date: 08/29/20 9:18:00 CDT heparin 2020-0 No Route: IV, Caesar lisa (ANES) 08-29 Drug form: l 14:18: INJ, ONCE, [place] 00 Stop date: 08/29/20 9:18:00 CDT heparin 2020-0 No Route: IV, Caesar lisa (ANES) 08-29 Drug form: l 14:18: INJ, ONCE, [place] 00 Stop date: 08/29/20 9:18:00 CDT heparin 2020-0 No Route: IV, [place] lisa (ANES) 08-29 Drug form: l 14:18: INJ, ONCE, [place] 00 Stop date: 08/29/20 9:18:00 CDT heparin [...] 08-29 Route: PO, l 14:01: Drug form: [place] 00 TAB, ONCE, Dosing Weight 97.273, kg, [...] oria ne 08-29 Route: l 14:01: IVP, [place] 00 Q5Min, Dosing Weight 97.273, kg, PRN Pain Score 7-10, Start date: 08/29/20 9:01:00 CDT, Duration: 4 doses or times, Stop date: Limited # of times Flumazenil 1-0 No 0.2 mg, Caesar lisa 08-29 Route: l 14:01: IVP, PRN, [place] 00 Dosing Weight 97.273, kg, PRN Benzodiaze pine Reversal, Initial dose, Start date: 08/29/20 9:01:00 CDT, Duration: 30 day, Stop date: 09/28/20 9:00:00 CDT Naloxone 1-0 No 0.4 mg, Memori a 08-29 Route: l 14:01: IVP, [place] 00 Q2MIN, Dosing Weight 97.273, kg, PRN [...] oria ne 08-29 Route: l 14:01: IVP, [place] 00 Q5Min, Dosing Weight 97.273, kg, PRN Pain Score 7-10, Start date: 08/29/20 9:01:00 CDT, Duration: 4 doses or times, Stop date: Limited # of times Flumazenil 1-0 No 0.2 mg, Caesar lisa 08-29 Route: l 14:01: IVP, PRN, [place] 00 Dosing Weight 97.273, kg, PRN Benzodiaze pine Reversal, Initial dose, Start date: 08/29/20 9:01:00 CDT, Duration: 30 day, Stop date: 09/28/20 9:00:00 CDT Naloxone 2021-0 No 0.4 mg, Memori a 08-29 Route: l 14:01: IVP, [place] 00 Q2MIN, Dosing Weight 97.273, kg, PRN Narcotic Reversal, Start date: 08/29/20 9:01:00 CDT, Duration: 8 doses or times, Stop date: Limited # of times Ondansetron 1-0 No 4 mg, Memor ia 08-29 Route: l 14:01: IVP, ONCE, [place] 00 Dosing Weight 97.273, kg, PRN Nausea & Vomiting, Start date: 08/29/20 9:01:00 CDT Labetalol 2021-0 No 10 mg, Memori a 08-29 Route: l 14:01: IVP, [place] 00 Q5Min, Dosing Weight 97.273, kg, PRN Elevated BP, Start date: 08/29/20 9:01:00 CDT, Duration: 5 doses or times, Stop date: Limited # of times Acetaminoph 2021-0 No 1,000 mg, M emoria en 08-29 Route: PO, l 14:01: Drug form: [place] 00 TAB, ONCE, Dosing Weight 97.273, kg, [...] oria ne 08-29 Route: l 14:01: IVP, [place] 00 Q5Min, Dosing Weight 97.273, kg, PRN [...] Memori a 08-29 Route: l 14:01: IVP, [place] 00 Q5Min, Dosing Weight 97.273, kg, PRN [...] Memori a 08-29 Route: l 14:01: IVP, [place] 00 Q2MIN, Dosing Weight 97.273, kg, PRN Narcotic Reversal, Start date: 08/29/20 9:01:00 CDT, Duration: 8 doses or times, Stop date: Limited # of times Ondansetron 2021-0 No 4 mg, Memor ia 08-29 Route: l 14:01: IVP, ONCE, [place] 00 Dosing Weight 97.273, kg, PRN Nausea & Vomiting, Start date: 08/29/20 9:01:00 CDT Labetalol 1-0 No 10 mg, Memori a 08-29 Route: l 14:01: IVP, [place] 00 Q5Min, Dosing Weight 97.273, kg, PRN [...] INJ, ONCE Stop date: 08/29/20 8:52:00 CDT propofol 2020-0 [...] Drug form: l 10 13:15: INJ, Start [place] microgram 00 date: 08/29/20 8:15:00 CDT, Stop date: 08/29/20 9:15:00 CDT norepinephr 2020-0 No Route: IV, Memoria ine (ANES) 08-29 Drug form: l 10 13:15: INJ, Start [place] microgram date: 08/29/20 8:15:00 CDT, Stop date: [...] Drug form: l 10 13:15: INJ, Start [place] microgram date: 08/29/20 8:15:00 CDT, Stop date: 08/29/20 9:15:00 CDT norepinephr 2020-0 No Route: IV, Memoria ine (ANES) 08-29 Drug form: l 10 13:15: INJ, Start [place] microgram 00 date: 08/29/20 8:15:00 CDT, Stop date: 08/29/20 9:15:00 CDT norepinephr 2020-0 No Route: IV, Memoria ine (ANES) 08-29 Drug form: l 10 13:15: INJ, Start [place] microgram 00 date: 08/29/20 8:15:00 CDT, Stop [...] 4-09 Total l 0.9% IV 12:30: Volume: [place] (ANES) 1000 00 1,000, mL Start date: [...] Aptel n 00 tab, 0 Refill(s) busPIRone Yes [...] PO, l Hydrochlori 11:42: Q24H, # 30 [place] de 150 MG 00 tab, 0 Extended [...] PO, l Hydrochlori 11:42: Q24H, # 30 [place] de 150 MG 00 tab, 0 Extended Refill(s) Release Tablet 24 HR 2020-0 Yes 150 mg = 1 Memori a Bupropion 4-09 tab, PO, l Hydrochlori 11:42: Q24H, # 30 [place] de 150 MG 00 tab, 0 Extended Refill(s) Release Tablet 24 HR 2020-0 Yes 150 mg = 1 Memori a Bupropion - tab, PO, l Hydrochlori 11:42: Q24H, # 30 [place] de 150 MG 00 tab, 0 Extended Refill(s) Release Tablet 24 HR 2020-0 Yes 150 mg = 1 Memori a Bupropion - tab, PO, l Hydrochlori 11:42: Q24H, # 30 [place] de 150 MG 00 tab, 0 Extended Refill(s) Release Tablet apixaban 2020-0 Yes 5 mg, PO, Me moria MG Oral 4 Q12H, tab, l Tablet 11:41: 0 [place] [Eliquis] 00 Refill(s), For Atrial Fibrilatio n [...] 4- Q12H, tab, l Tablet 11:41: 0 [place] [Eliquis] 00 Refill(s), For Atrial Fibrilatio n [...] tab, PO, l tablet 11:38: Daily, # [place] 00 90 tab, 3 Refill(s) AMIODarone Yes [...] tab, PO, l tablet 11:38: Daily, # [place] 00 90 tab, 3 Refill(s) AMIODarone 0 [...] date: 09/28/20 5:29:00 CDT, 2.13, m2, 0 amiodarone Yes 200mg Take 1 Univ ers 200 mg 08-29 tablet by ity of tablet 00:00: mouth. [place] [address] Medical Branch apixaban 5 0 Yes 5 mg, PO, Un matt mg tablet 08-29 Q12H, tab, ity of 00:00: 0 [place] [address] Refill(s), Medical For Atrial Branch Fibrilatio n apixaban 5 2020-0 Yes 5 mg, PO, Un matt mg tablet 08-29 Q12H, tab, ity of 00:00: 0 [place] [address] Refill(s), Medical For Atrial Branch Fibrilatio n apixaban 5 0 Yes 5 mg, PO, Un matt mg tablet 08-29 Q12H, tab, ity of 00:00: 0 [place] [address] Refill(s), Medical For Atrial Branch Fibrilatio n amiodarone 2020-0 2022- No 200mg Take 1 Uni vers 200 mg 08-29 tablet by ity of tablet 00:00: 00:00 mouth. [place] 00 : Medical Branch pantoprazol 2020- No Metho di e 08-29 [...] mg Health MG tablet 00:00: tablet 00 aspirin 81 2019-05 Yes DAILY Univer s mg EC 1-11 ity of tablet 00:00: [place] 00 [facility] atorvastati 2019-05 Yes AT BEDTIME Univers n 80 mg 1-11 ity of tablet 00:00: [place] [facility] aspirin 81 2019-05 Yes DAILY Univer s mg EC 1-11 ity of tablet 00:00: [place] [facility] aspirin 81 2019-05 Yes DAILY Univer s mg EC 1-11 ity of tablet 00:00: [place] [facility] atorvastati 2019-05- No AT BEDTIME Univers n 80 mg 1-11 10-26 ity of tablet 00:00: 00:00 [place] 00 :00 [facility] lisinopril 2019-05 Yes 40mg Take 40 mg U nivers (PRINIVIL,Z 0-12 by mouth 2 it y of ESTRIL) 40 08:06: (two) [place] mg tablet 41 times Medical daily. Branch metoprolol 2019-05 Yes 100mg Take 100 Un matt tartrate 0-12 mg by ity of (LOPRESSOR) 08:06: mouth 2 [place] as 100 mg 41 (two) Medical tablet times [place] daily. amLODIPine 2019-05 Yes 10mg Take 10 mg U nivers (NORVASC) 0-12 by mouth ity of 10 mg 08:06: daily. [place] tablet 41 Medical Branch albuterol Yes Univers 90 4-14 ity of mcg/actuati 00:00: [place] on inhaler 00 Medical Branch albuterol 0 [...] ne-Tenofovi 1-21 200 mg-25 [facility] AF 00:00: mg tablet (Descovy) 00 [...] SARS-COV-2 COVID-19 2022-03-05 Completed Unive rsity of DIMTIRIS-SUCROSE 00:00:00 [place] Medica l VACCINE 12 YRS+, Branch BIVALENT 0.3ML, IM, (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) Influenza Virus 2022-03-05 Completed Universit y of Vaccine,quad 00:00:00 [place] Medica l Im,preserve Free Branch 65+ (FLUAD) SARS-COV-2 COVID-19 2020-07-23 Completed Unive rsity of PFIZER VACCINE 00:00:00 [facility] SARS-COV-2 COVID-19 2020-07-23 Completed Unive rsity of PFIZER VACCINE 00:00:00 [facility] SARS-COV-2 COVID-19 2020-07-23 Completed Unive rsity of PFIZER VACCINE 00:00:00 [facility] SARS-COV-2 COVID-19 2020-07-23 Completed Unive rsity of PFIZER VACCINE 00:00:00 [facility] SARS-COV-2 COVID-19 2020-07-23 Completed Unive rsity of PFIZER VACCINE 00:00:00 [facility] SARS-COV-2 COVID-19 2020-07-23 Completed Unive rsity of PFIZER VACCINE 00:00:00 [facility] SARS-COV-2 COVID-19 2020-07-23 Completed Unive rsity of PFIZER VACCINE 00:00:00 [facility] SARS-COV-2 COVID-19 2020-07-23 Completed Unive rsity of PFIZER VACCINE 00:00:00 [facility] SARS-COV-2 COVID-19 2020-07-23 Completed Unive rsity of PFIZER VACCINE 00:00:00 [facility] SARS-COV-2 COVID-19 2020-07-23 Completed Unive rsity of PFIZER VACCINE 00:00:00 [facility] SARS-COV-2 COVID-19 2020-07-23 Completed Unive rsity of PFIZER VACCINE 00:00:00 [facility] SARS-COV-2 COVID-19 2020-07-23 Completed Unive rsity of PFIZER VACCINE 00:00:00 [facility] SARS-COV-2 COVID-19 2020-07-23 Completed Unive rsity of PFIZER VACCINE 00:00:00 [facility] SARS-COV-2 COVID-19 2020-07-23 Completed Unive rsity of PFIZER VACCINE 00:00:00 [facility] SARS-COV-2 COVID-19 2020-07-23 Completed Unive rsity of PFIZER VACCINE 00:00:00 [facility] SARS-COV-2 COVID-19 2020-07-23 Completed Unive rsity of PFIZER VACCINE 00:00:00 [facility] SARS-COV-2 COVID-19 2020-07-23 Completed Unive rsity of PFIZER VACCINE 00:00:00 [facility] SARS-COV-2 COVID-19 2020-07-23 Completed Unive rsity of PFIZER VACCINE 00:00:00 [facility] SARS-COV-2 COVID-19 2020-07-23 Completed Unive rsity of PFIZER VACCINE 00:00:00 [facility] SARS-COV-2 COVID-19 2020-07-23 Completed Unive rsity of PFIZER VACCINE 00:00:00 [facility] PFIZER COVID-19 2020-07-23 Completed [facility] VACCINATION 00:00:00 [facility] PFIZER COVID-19 2020-07-23 Completed [facility] VACCINATION 00:00:00 [facility] PFIZER COVID-19 2020-07-23 Completed [facility] VACCINATION 00:00:00 [facility] PFIZER COVID-19 2020-07-23 Completed [facility] VACCINATION 00:00:00 [facility] PFIZER COVID-19 2020-07-23 Completed [facility] VACCINATION 00:00:00 [facility] PFIZER COVID-19 2020-07-23 Completed [facility] VACCINATION 00:00:00 [facility] PFIZER COVID-19 2020-07-23 Completed [facility] VACCINATION 00:00:00 [facility] PFIZER COVID-19 2020-07-23 Completed [facility] VACCINATION 00:00:00 [facility] PFIZER COVID-19 2020-07-23 Completed [facility] VACCINATION 00:00:00 [facility] PFIZER COVID-19 2020-07-23 Completed [facility] VACCINATION 00:00:00 [facility] PFIZER COVID-19 2020-07-23 Completed [facility] VACCINATION 00:00:00 [facility] PFIZER COVID-19 2020-07-23 Completed [facility] VACCINATION 00:00:00 [facility] PEG COVID-19 2020-07-23 Completed [facility] VACCINATION 00:00:00 [facility] PFIZER COVID-19 2020-07-23 Completed [facility] VACCINATION 00:00:00 [facility] PFIZER COVID-19 2020-07-23 Completed [facility] VACCINATION 00:00:00 [facility] PFIZER COVID-19 2020-07-23 Completed [facility] VACCINATION 00:00:00 [facility] PFIZER COVID-19 2020-07-23 Completed [facility] VACCINATION 00:00:00 [facility] PFIZER COVID-19 2020-07-23 Completed [facility] VACCINATION 00:00:00 [facility] PFIZER COVID-19 2020-07-23 Completed [facility] VACCINATION 00:00:00 [facility] PFIZER COVID-19 2020-07-23 Completed [facility] VACCINATION 00:00:00 [facility] PFIZER COVID-19 2020-07-23 Completed [facility] VACCINATION 00:00:00 [facility] PFIZER COVID-19 2020-07-23 Completed [facility] VACCINATION 00:00:00 [facility] PFIZER COVID-19 2020-07-23 Completed [facility] VACCINATION 00:00:00 [facility] PFIZER COVID-19 2020-07-23 Completed [facility] VACCINATION 00:00:00 [facility] PFIZER COVID-19 2020-07-23 Completed [facility] VACCINATION 00:00:00 [facility] PFIZER COVID-19 2020-07-23 Completed [facility] VACCINATION 00:00:00 [facility] PFIZER COVID-19 2020-07-23 Completed [facility] VACCINATION 00:00:00 [facility] PFIZER COVID-19 2020-07-23 Completed [facility] VACCINATION 00:00:00 [facility] PFIZER COVID-19 2020-07-23 Completed [facility] VACCINATION 00:00:00 [facility] PEG COVID-19 2020-07-23 Completed [facility] VACCINATION 00:00:00 [facility] PEG COVID-19 2020-07-23 Completed [facility] VACCINATION 00:00:00 [facility] PFIZER COVID-19 2020-07-23 Completed [facility] VACCINATION 00:00:00 [facility] PEG COVID-19 2020-07-23 Completed [facility] VACCINATION 00:00:00 [facility] PFIZER COVID-19 2020-07-23 Completed [facility] VACCINATION 00:00:00 [facility] PEG COVID-19 2020-07-23 Completed [facility] VACCINATION 00:00:00 [facility] PEG COVID-19 2020-07-23 Completed [facility] VACCINATION 00:00:00 [facility] PEG COVID-19 2020-07-23 Completed [facility] VACCINATION 00:00:00 [facility] PEG COVID-19 2020-07-23 Completed [facility] VACCINATION 00:00:00 [facility] PEG COVID-19 2020-07-23 Completed [facility] VACCINATION 00:00:00 [facility] PEG COVID-19 2020-07-23 Completed [facility] VACCINATION 00:00:00 [facility] PEG COVID-19 2020-07-23 Completed [facility] M[facility] VACCINATION 00:00:00 [facility] PEG COVID-19 2020-07-23 Completed [facility] VACCINATION 00:00:00 [facility] PFIZER COVID-19 2020-07-23 Completed [facility] VACCINATION 00:00:00 [facility] PFIZER COVID-19 2020-07-23 Completed [facility] VACCINATION 00:00:00 [facility] PFIZER COVID-19 2020-07-23 Completed [facility] VACCINATION 00:00:00 [facility] PFIZER COVID-19 2020-07-23 Completed [facility] VACCINATION 00:00:00 [facility] PFIZER COVID-19 2020-07-23 Completed [facility] VACCINATION 00:00:00 [facility] PFIZER COVID-19 2020-07-23 Completed [facility] VACCINATION 00:00:00 [facility] PFIZER COVID-19 2020-07-23 Completed [facility] VACCINATION 00:00:00 [facility] PFIZER COVID-19 2020-07-23 Completed [facility] M[facility] VACCINATION 00:00:00 [facility] PFIZER COVID-19 2020-07-23 Completed [facility] VACCINATION 00:00:00 [facility] PFIZER COVID-19 2020-07-23 Completed [facility] VACCINATION 00:00:00 [facility] PFIZER COVID-19 2020-07-23 Completed [facility] VACCINATION 00:00:00 [facility] PFIZER COVID-19 2020-07-23 Completed [facility] VACCINATION 00:00:00 [facility] PFIZER COVID-19 2020-07-23 Completed [facility] VACCINATION 00:00:00 [facility] PFIZER COVID-19 2020-07-23 Completed [facility] VACCINATION 00:00:00 [facility] PFIZER COVID-19 2020-07-23 Completed [facility] VACCINATION 00:00:00 [facility] PFIZER COVID-19 2020-07-23 Completed [facility] VACCINATION 00:00:00 [facility] PFIZER COVID-19 2020-07-23 Completed [facility] VACCINATION 00:00:00 [facility] PFIZER COVID-19 2020-07-23 Completed [facility] VACCINATION 00:00:00 [facility] PFIZER COVID-19 2020-07-23 Completed [facility] VACCINATION 00:00:00 [facility] PFIZER COVID-19 2020-07-23 Completed [facility] VACCINATION 00:00:00 [facility] PFIZER COVID-19 2020-07-23 Completed [facility] MRNA VACCINATION 00:00:00 [facility] PFIZER COVID-19 2020-07-23 Completed [facility] VACCINATION 00:00:00 [facility] PFIZER COVID-19 2020-07-23 Completed [facility] MRNA VACCINATION 00:00:00 [facility] PFIZER COVID-19 2020-07-23 Completed [facility] MRNA VACCINATION 00:00:00 [facility] PFIZER COVID-19 2020-07-23 Completed [facility] MRNA VACCINATION 00:00:00 [facility] PFIZER COVID-19 2020-07-23 Completed [facility] MRNA VACCINATION 00:00:00 [facility] SARS-COV-2 COVID-19 2020-07-02 Completed Unive rsity of PFIZER VACCINE 00:00:00 [facility] SARS-COV-2 COVID-19 2020-07-02 Completed Unive rsity of PFIZER VACCINE 00:00:00 [facility] SARS-COV-2 COVID-19 2020-07-02 Completed Unive rsity of PFIZER VACCINE 00:00:00 [facility] SARS-COV-2 COVID-19 2020-07-02 Completed Unive rsity of PFIZER VACCINE 00:00:00 [place] [facility] SARS-COV-2 COVID-19 2020-07-02 Completed Unive rsity of PFIZER VACCINE 00:00:00 [facility] SARS-COV-2 COVID-19 2020-07-02 Completed [facility] PFIZER VACCINE 00:00:00 [facility] SARS-COV-2 COVID-19 2020-07-02 Completed [facility] PFIZER VACCINE 00:00:00 [facility] SARS-COV-2 COVID-19 2020-07-02 Completed [facility] PFIZER VACCINE 00:00:00 [facility] SARS-COV-2 COVID-19 2020-07-02 Completed [facility] PFIZER VACCINE 00:00:00 [facility] SARS-COV-2 COVID-19 2020-07-02 Completed [facility] PFIZER VACCINE 00:00:00 [facility] SARS-COV-2 COVID-19 2020-07-02 Completed [facility] PFIZER VACCINE 00:00:00 [facility] SARS-COV-2 COVID-19 2020-07-02 Completed [facility] PFIZER VACCINE 00:00:00 [facility] SARS-COV-2 COVID-19 2020-07-02 Completed Unive [facility]ity of PFIZER VACCINE 00:00:00 [facility] SARS-COV-2 COVID-19 2020-07-02 Completed [facility] of PFIZER VACCINE 00:00:00 [facility] SARS-COV-2 COVID-19 2020-07-02 Completed [facility] of PFIZER VACCINE 00:00:00 [facility] SARS-COV-2 COVID-19 2020-07-02 Completed [facility] of PFIZER VACCINE 00:00:00 [facility] SARS-COV-2 COVID-19 2020-07-02 Completed [facility] of PFIZER VACCINE 00:00:00 [facility] SARS-COV-2 COVID-19 2020-07-02 Completed [facility] of PFIZER VACCINE 00:00:00 [facility] SARS-COV-2 COVID-19 2020-07-02 Completed [facility] of PFIZER VACCINE 00:00:00 [facility] SARS-COV-2 COVID-19 2020-07-02 Completed [facility] of PFIZER VACCINE 00:00:00 [facility] PFIZER COVID-19 2020-07-02 [facility]00 [facility] PFIZ[facility] COVID-19 2020-07-02 [facility]pleted [facility]ACC[facility]:00:00 [facility] PFIZER COVID-19 2020-07-02 Completed [facility] VACCINATION 00:00:00 [facility] PFIZER COVID-19 2020-07-02 Completed [facility] VACCIN[facility] 00:00:00 [facility] PFIZER COVID-19 2020-07-02 Completed [facility] VACCINATION 00:00:00 [facility] PFIZER COVID-19 2020-07-02 Completed [facility] VACCINATION 00:00:00 [facility] PFIZER COVID-19 2020-07-02 Completed [facility] VACCINATION 00:00:00 [facility] PFIZER COVID-19 2020-07-02 Completed [facility] VACCINATION 00:00:00 [facility] PFIZER COVID-19 2020-07-02 Completed [facility] VACCINATION 00:00:00 [facility] PFIZER COVID-19 2020-07-02 Completed [facility] VACCINATION 00:00:00 [facility] PFIZER COVID-19 2020-07-02 Completed [facility] VACCINATION 00:00:00 [facility] PFIZER COVID-19 2020-07-02 Completed [facility] VACCINATION 00:00:00 [facility] PFIZER COVID-19 2020-07-02 Completed [facility] VACCINATION 00:00:00 [facility] PFIZER COVID-19 2020-07-02 Completed [facility] VACCINATION 00:00:00 [facility] PFIZER COVID-19 2020-07-02 Completed [facility] VACCINATION 00:00:00 [facility] PFIZER COVID-19 2020-07-02 Completed [facility]ACC[facility] 00:00:00 [facility] PFIZER COVID-19 2020-07-02 Completed [facility] VACC[facility] 00:00:00 [facility] PFIZER COVID-19 2020-07-02 Completed [facility] VACCINATION 00:00:00 [facility] PFIZER COVID-19 2020-07-02 Completed [facility] VACC[facility] 00:00:00 [facility] PFIZER COVID-19 2020-07-02 Completed [facility] VACCINATION 00:00:00 [facility] PFIZER COVID-19 2020-07-02 Completed [facility] VACCINATION 00:00:00 [facility] PFIZER COVID-19 2020-07-02 Completed [facility] VACCINATION 00:00:00 [facility] PFIZER COVID-19 2020-07-02 Completed [facility] VACCINATION 00:00:00 [facility] PEG COVID-19 2020-07-02 Completed [facility] VACCINATION 00:00:00 [facility] PFIZER COVID-19 2020-07-02 Completed [facility] VACCINATION 00:00:00 [facility] PFIZER COVID-19 2020-07-02 Completed [facility] VACCINATION 00:00:00 [facility] PFIZER COVID-19 2020-07-02 Completed [facility] VACCINATION 00:00:00 [facility] PFIZER COVID-19 2020-07-02 Completed [facility] VACCINATION 00:00:00 [facility] PEG COVID-19 2020-07-02 Completed [facility] VACCINATION 00:00:00 [facility] PEG FELIZID-19 2020-07-02 Completed [facility] VACCINATION 00:00:00 [facility] PFIZER COVID-19 2020-07-02 Completed [facility] VACCINATION 00:00:00 [facility] PFIZER COVID-19 2020-07-02 Completed [facility] VACCINATION 00:00:00 [facility] PEG COVID-19 2020-07-02 Completed [facility] VACCINATION 00:00:00 [facility] PFIZER COVID-19 2020-07-02 Completed [facility] VACCINATION 00:00:00 [facility] PEG COVID-19 2020-07-02 Completed [facility] VACCINATION 00:00:00 [facility] PFIZER COVID-19 2020-07-02 Completed [facility] VACCINATION 00:00:00 [facility] PFIZER COVID-19 2020-07-02 Completed [facility] VACCINATION 00:00:00 [facility] PFIZER COVID-19 2020-07-02 Completed [facility] VACCINATION 00:00:00 [facility] PFIZER COVID-19 2020-07-02 Completed [facility] VACCINATION 00:00:00 [facility] PFIZER COVID-19 2020-07-02 Completed [facility] VACCINATION 00:00:00 [facility] PFIZER COVID-19 2020-07-02 Completed [facility] VACCINATION 00:00:00 [facility] PFIZER COVID-19 2020-07-02 Completed [facility] VACCINATION 00:00:00 [facility] PFIZER COVID-19 2020-07-02 Completed [facility] VACCINATION 00:00:00 [facility] PFIZER COVID-19 2020-07-02 Completed [facility] VACCINATION 00:00:00 [facility] PFIZER COVID-19 2020-07-02 Completed [facility] VACCINATION 00:00:00 [facility] PFIZER COVID-19 2020-07-02 Completed [facility] VACCINATION 00:00:00 [facility] PFIZER COVID-19 2020-07-02 Completed [facility] VACCINATION 00:00:00 [facility] PFIZER COVID-19 2020-07-02 Completed [facility] VACCINATION 00:00:00 [facility] PFIZER COVID-19 2020-07-02 Completed [facility] VACCINATION 00:00:00 [facility] PFIZER COVID-19 2020-07-02 Completed [facility] VACCINATION 00:00:00 [facility] PFIZER COVID-19 2020-07-02 Completed [facility] VACCINATION 00:00:00 [facility] PFIZER COVID-19 2020-07-02 Completed [facility] VACCINATION 00:00:00 [facility] PFIZER COVID-19 2020-07-02 Completed [facility] VACCINATION 00:00:00 [facility] PFIZER COVID-19 2020-07-02 Completed [facility] VACCINATION 00:00:00 [facility] PFIZER COVID-19 2020-07-02 Completed [facility] VACCINATION 00:00:00 [facility] PFIZER COVID-19 2020-07-02 Completed [facility] VACCINATION 00:00:00 [facility] PFIZER COVID-19 2020-07-02 Completed [facility] VACCINATION 00:00:00 [facility] PFIZER COVID-19 2020-07-02 Completed [facility] VACCINATION 00:00:00 [facility] PFIZER COVID-19 2020-07-02 Completed [facility] VACCINATION 00:00:00 [facility] PFIZER COVID-19 2020-07-02 Completed [facility] VACCINATION 00:00:00 [facility] PFIZER COVID-19 2020-07-02 Completed [facility] VACCINATION 00:00:00 [facility] PFIZER COVID-19 2020-07-02 Completed [facility] VACCINATION 00:00:00 [facility] PFIZER COVID-19 2020-07-02 Completed [facility] VACCINATION 00:00:00 [facility] PFIZER COVID-19 2020-07-02 Completed [facility] VACCINATION 00:00:00 [facility] PFIZER COVID-19 2020-07-02 Completed [facility] VACCINATION 00:00:00 [facility] PFIZER COVID-19 2020-07-02 Completed [facility]ACC[facility] 00:00:00 [facility] PFIZER COVID-19 2020-07-02 Completed [facility] VACCINATION 00:00:00 [facility] PFIZER COVID-19 2020-07-02 Completed [facility] VACCINATION 00:00:00 [facility] [...] Universit y of Vaccine (3+ yrs) 00:00:00 [facility] Pneumococcal 13 2014-01-30 Completed Universit y of Conjugate, PCV13 00:00:00 [facility] d[facility] (Prevnar 13) Branch Influenza Virus 2014-01-30 Completed Universit y of Vaccine (3+ yrs) 00:00:00 [facility] Pneumococcal 13 2014-01-30 Completed Universit y of Conjugate, PCV13 00:00:00 [facility] (Prevnar 13) Branch Influenza Virus 2014-01-30 Completed Universit y of Vaccine (3+ yrs) 00:00:00 [facility] Pneumococcal 13 2014-01-30 Completed Universit y of Conjugate, PCV13 00:00:00 [facility] dical (Prevnar 13) Branch Influenza Virus 2014-01-30 Completed Universit y of Vaccine (3+ yrs) 00:00:00 [facility] Pneumococcal 13 2014-01-30 Completed Universit y of Conjugate, PCV13 00:00:00 [facility]ical (Prevnar 13) Branch Influenza Virus 2014-01-30 Completed Universit y of Vaccine (3+ yrs) 00:00:00 [facility] Pneumococcal 13 2014-01-30 Completed Universit y of Conjugate, PCV13 00:00:00 [facility]ical (Prevnar 13) Branch Influenza Virus 2014-01-30 Completed [facility]it y of Vaccine (3+ yrs) 00:00:00 [facility] Pneumococcal 13 2014-01-30 Completed [facility]it y of Conjugate, PCV13 00:00:00 [facility] (Prevnar 13) Branch Influenza Virus 2014-01-30 Completed [facility] y of Vaccine (3+ yrs) 00:00:00 [facility] Pneumococcal 13 2014-01-30 Completed [facility]it y of Conjugate, PCV13 00:00:00 [facility] (Prevnar 13) Branch Influenza Virus 2014-01-30 Completed [facility]it y of Vaccine (3+ yrs) 00:00:00 [facility] Pneumococcal 13 2014-01-30 Completed Universit y of Conjugate, PCV13 00:00:00 [facility] (Prevnar 13) Branch Influenza Virus 2014-01-30 Completed [facility]it y of Vaccine (3+ yrs) 00:00:00 [facility] Pneumococcal 13 2014-01-30 Completed [facility]it y of Conjugate, PCV13 00:00:00 [facility] (Prevnar 13) Branch Influenza Virus 2014-01-30 Completed [facility]it y of Vaccine (3+ yrs) 00:00:00 [facility] Pneumococcal 13 2014-01-30 Completed [facility] y of Conjugate, PCV13 00:00:00 [facility] (Prevnar 13) Branch Influenza Virus 2014-01-30 Completed [facility] y of Vaccine (3+ yrs) 00:00:00 [facility] Pneumococcal 13 2014-01-30 Completed [facility]it y of Conjugate, PCV13 00:00:00 [facility] (Prevnar 13) Branch Influenza Virus 2014-01-30 Completed [facility]it y of Vaccine (3+ yrs) 00:00:00 [facility] Pneumococcal 13 2014-01-30 Completed Universit y of Conjugate, PCV13 00:00:00 [facility] (Prevnar 13) Branch Influenza Virus 2014-01-30 Completed [facility]it y of Vaccine (3+ yrs) 00:00:00 [facility] Pneumococcal 13 2014-01-30 Completed [facility]it y of Conjugate, PCV13 00:00:00 [facility] (Prevnar 13) Branch Influenza Virus 2014-01-30 Completed [facility]it y of Vaccine (3+ yrs) 00:00:00 [facility] Pneumococcal 13 2014-01-30 Completed Universit y of Conjugate, PCV13 00:00:00 [facility] (Prevnar 13) Branch Influenza Virus 2014-01-30 Completed Universit y of Vaccine (3+ yrs) 00:00:00 [facility] Pneumococcal 13 2014-01-30 Completed Universit y of Conjugate, PCV13 00:00:00 [facility] (Prevnar 13) Branch Influenza Virus 2014-01-30 Completed Universit y of Vaccine (3+ yrs) 00:00:00 [facility] Pneumococcal 13 2014-01-30 Completed Universit y of Conjugate, PCV13 00:00:00 [facility] (Prevnar 13) Branch Influenza Virus 2014-01-30 Completed Universit y of Vaccine (3+ yrs) 00:00:00 [facility] Pneumococcal 13 2014-01-30 Completed Universit y of Conjugate, PCV13 00:00:00 [facility] (Prevnar 13) Branch Influenza Virus 2014-01-30 Completed Universit y of Vaccine (3+ yrs) 00:00:00 [facility] Pneumococcal 13 2014-01-30 Completed Universit y of Conjugate, PCV13 00:00:00 [facility] (Prevnar 13) Branch Influenza Virus 2014-01-30 Completed [facility] y of Vaccine (3+ yrs) 00:00:00 [facility] Pneumococcal 13 2014-01-30 Completed [facility]it y of Conjugate, PCV13 00:00:00 [facility] (Prevnar 13) Branch Influenza Virus 2014-01-30 Completed [facility] y of Vaccine (3+ yrs) 00:00:00 [facility] Pneumococcal 13 2014-01-30 Completed [facility] y of Conjugate, PCV13 00:00:00 [facility] (Prevnar 13) Branch Influenza Virus 2014-01-30 Completed [facility] y of Vaccine (3+ yrs) 00:00:00 [facility] Pneumococcal 13 2014-01-30 Completed [facility] y of Conjugate, PCV13 00:00:00 [facility] (Prevnar 13) Branch Influenza Virus 2014-01-30 Completed [facility] y of Vaccine (3+ yrs) 00:00:00 [facility] Pneumococcal 13 2014-01-30 Completed Universit y of Conjugate, PCV13 00:00:00 [facility] (Prevnar 13) Branch Influenza Virus 2014-01-30 Completed Universit y of Vaccine (3+ yrs) 00:00:00 [facility] Pneumococcal 13 2014-01-30 Completed Universit y of Conjugate, PCV13 00:00:00 [facility] (Prevnar 13) Branch Influenza Virus 2014-01-30 Completed [facility]it y of Vaccine (3+ yrs) 00:00:00 [facility] Pneumococcal 13 2014-01-30 Completed Universit y of Conjugate, PCV13 00:00:00 [facility] (Prevnar 13) Branch [...] Completed Unive rsity of Dosage 00:00:00 [facility] Hep B, Adol or Pedi 2011-09-01 Completed [facility]ive [facility]ity of Dosage 00:00:00 [facility] Hep B, Adol or Pedi 2011-09-01 Completed [facility]ive [facility]ity of Dosage 00:00:00 [facility] Hep B, Adol or Pedi 2011-09-01 Completed [facility] of Dosage 00:00:00 [facility] Hep B, Adol or Pedi 2011-09-01 Completed [facility] of Dosage 00:00:00 [facility] Hep B, Adol or Pedi 2011-09-01 Completed [facility] of Dosage 00:00:00 [facility] Hep B, Adol or Pedi 2011-09-01 Completed [facility]ive [facility]ity of Dosage 00:00:00 [facility] Hep B, Adol or Pedi 2011-09-01 Completed [facility] of Dosage 00:00:00 [facility] Hep B, Adol or Pedi 2011-09-01 Completed [facility] of Dosage 00:00:00 [facility] Hep B, Adol or Pedi 2011-09-01 Completed [facility] of Dosage 00:00:00 [facility] Hep B, Adol or Pedi 2011-09-01 Completed [facility] of Dosage 00:00:00 [facility] Hep B, Adol or Pedi [...] Completed Univers[facility] of Vaccine 00:00:00 [facility] Hep B, Adol or Pedi 2011-02-10 Completed [facility] of Dosage 00:00:00 [facility] Influenza Virus 2011-02-10 Completed [facility]it y of Vaccine 00:00:00 [facility] Hep B, Adol or Pedi [...] Completed [facility] y of Vaccine 00:00:00 [facility] Hep B, Adol or Pedi 2011-02-10 Completed [facility]ive [facility]ity of Dosage 00:00:00 [facility] Influenza Virus 2011-02-10 Completed [facility]it y of Vaccine 00:00:00 [facility] Hep B, Adol or Pedi 2011-02-10 Completed [facility]ive rsity of Dosage 00:00:00 [facility] Influenza Virus 2011-02-10 Completed Universit y of Vaccine 00:00:00 [facility] Hep B, Adol or Pedi 2011-02-10 Completed Unive rsity of Dosage 00:00:00 [facility] Influenza Virus 2011-02-10 Completed [facility]it y of Vaccine 00:00:00 [facility] Hep B, Adol or Pedi 2011-02-10 Completed [facility]ive rsity of Dosage 00:00:00 [facility] Influenza Virus 2011-02-10 Completed [facility]it y of Vaccine 00:00:00 [facility] Hep B, Adol or Pedi 2011-02-10 Completed [facility]ive rsity of Dosage 00:00:00 [facility] Influenza Virus 2011-02-10 Completed [facility] of Vaccine 00:00:00 [facility] Hep B, Adol or Pedi [...] Completed Universit y of Vaccine 00:00:00 [facility] Hep B, Adol or Pedi [...] (TB) 2010-11-18 Completed University of 00:00:00 [facility] TDAP (ADACEL) 2010-11-18 Completed University of VACCINE 00:00:00 [facility] PPD (TB) 2010-11-18 Completed University of 00:00:00 [facility] TDAP (ADACEL) 2010-11-18 Completed University of VACCINE 00:00:00 [facility] PPD (TB) 2010-11-18 Completed University of 00:00:00 [facility] TDAP (ADACEL) 2010-11-18 Completed University of VACCINE 00:00:00 [facility] PPD (TB) 2010-11-18 Completed University of 00:00:00 [facility] TDAP (ADACEL) 2010-11-18 Completed University of VACCINE 00:00:00 [facility] PPD (TB) 2010-11-18 Completed University of 00:00:00 [facility] TDAP (ADACEL) 2010-11-18 Completed University of VACCINE 00:00:00 [facility] PPD (TB) 2010-11-18 Completed [facility] of 00:00:00 [facility] TDAP (ADACEL) 2010-11-18 Completed University of VACCINE 00:00:00 [facility] PPD (TB) 2010-11-18 Completed [facility] of 00:00:00 [facility] TDAP (ADACEL) 2010-11-18 Completed University of VACCINE 00:00:00 [facility] PPD (TB) 2010-11-18 Completed [facility] of 00:00:00 [facility] TDAP (ADACEL) 2010-11-18 Completed University of VACCINE 00:00:00 [facility] PPD (TB) 2010-11-18 Completed [facility] of 00:00:00 [facility] TDAP (ADACEL) 2010-11-18 Completed University of VACCINE 00:00:00 [facility] PPD (TB) 2010-11-18 Completed [facility] of 00:00:00 [facility] TDAP (ADACEL) 2010-11-18 Completed University of VACCINE 00:00:00 [facility] PPD (TB) 2010-11-18 Completed [facility] of 00:00:00 [facility] TDAP (ADACEL) 2010-11-18 Completed University of VACCINE 00:00:00 [facility] PPD (TB) 2010-11-18 Completed University of 00:00:00 [facility] TDAP (ADACEL) 2010-11-18 Completed University [...] A 2004-03-02 Completed University of 00:00:00 [facility] HEPATITIS A 2004-03-02 Completed University [...] A 2004-03-02 Completed [facility] of 00:00:00 [facility] HEPATITIS A 2004-03-02 Completed University of 00:00:00 [facility] HEPATITIS A 2004-03-02 Completed University of 00:00:00 [facility] HEPATITIS A 2004-03-02 Completed [facility] of 00:00:00 [facility] HEPATITIS A 2004-03-02 Completed [facility] of 00:00:00 [facility] HEPATITIS A 2004-03-02 Completed [facility] of 00:00:00 [facility] HEPATITIS A 2004-03-02 Completed [facility] of 00:00:00 [facility] HEPATITIS A 2004-03-02 Completed University of 00:00:00 [facility] HEPATITIS A 2004-03-02 Completed [facility] of 00:00:00 [facility] HEPATITIS A 2003-08-01 Completed University of 00:00:00 [facility] HEPATITIS A 2003-08-01 Completed [facility] of 00:00:00 [facility] HEPATITIS A 2003-08-01 Completed [facility] of 00:00:00 [facility] HEPATITIS A 2003-08-01 Completed [facility] of 00:00:00 [facility] HEPATITIS A 2003-08-01 Completed [facility] of 00:00:00 [facility] HEPATITIS A 2003-08-01 Completed [facility] of 00:00:00 [facility] HEPATITIS A 2003-08-01 Completed [facility] of 00:00:00 [facility] HEPATITIS A 2003-08-01 Completed [facility] of 00:00:00 [facility] HEPATITIS A 2003-08-01 Completed [facility] of 00:00:00 [facility] HEPATITIS A 2003-08-01 Completed [facility] of 00:00:00 [facility] HEPATITIS A 2003-08-01 Completed [facility] of 00:00:00 [facility] HEPATITIS A 2003-08-01 Completed [facility] of 00:00:00 [facility] HEPATITIS A 2003-08-01 Completed [facility] of 00:00:00 [facility] HEPATITIS A 2003-08-01 Completed [facility] of 00:00:00 [facility] HEPATITIS A 2003-08-01 Completed [facility] of 00:00:00 [facility] HEPATITIS A 2003-08-01 Completed [facility] of 00:00:00 [facility] HEPATITIS A 2003-08-01 Completed [facility] of 00:00:00 [facility] HEPATITIS A 2003-08-01 Completed [facility] of 00:00:00 [facility] HEPATITIS A 2003-08-01 Completed University [...] 2001-10-04 Completed [facility] of 00:00:00 [facility] HEPATITIS A Unknown Completed [facility] HEPATITIS A Unknown Completed [facility] Pneumococcal Unknown Completed [facility] o f Polysaccharide, [place] [facility] PPSV23 (PNEUMOVAX) Branch PPD (TB) Unknown Completed [facility] PPD (TB) Unknown Completed [facility] TDAP (ADACEL) Unknown Completed [facility] of VACCINE [facility] Influenza Virus Unknown Completed [facility] of Vaccine [facility] Hep B, Adol or Pedi Unknown Completed [facility] of Dosage [facility] Hep B, Adol or Pedi Unknown Completed [facility] of Dosage [facility] Hep B, Adol or Pedi Unknown Completed [facility] of Dosage [facility] Pneumococcal Unknown Completed [facility] o f Polysaccharide, [place] [facility] PPSV23 (PNEUMOVAX) Branch Influenza Virus Unknown Completed [facility] of Vaccine [facility] PPD (TB) Unknown Completed [facility] Influenza Virus Unknown Completed Universit y of Vaccine (3+ yrs) [facility] d[facility] Branch Pneumococcal 13 Unknown Completed Universit y of Conjugate, PCV13 [facility] dical (Prevnar 13) Branch Influenza Virus Unknown Completed [facility] of Vaccine [facility] SARS-COV-2 COVID-19 Unknown Completed Unive rsity of PFIZER VACCINE [facility] SARS-COV-2 COVID-19 Unknown Completed Unive rsity of PFIZER VACCINE [facility] SARS-COV-2 COVID-19 Unknown Completed Unive rsity of DIMITRIS-SUCROSE [facility] VACCINE 12 YRS+, Branch BIVALENT 0.3ML, IM, (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) Influenza Virus Unknown Completed [facility] Vaccine,quad [facility] Im,preserve Free Branch 65+ (FLUAD) HEPATITIS A Unknown Completed [facility] HEPATITIS A Unknown Completed [facility] Pneumococcal Unknown Completed University o f Polysaccharide, [place] [facility] PPSV23 (PNEUMOVAX) Branch PPD (TB) Unknown Completed [facility] PPD (TB) Unknown Completed [facility] TDAP (ADACEL) Unknown Completed University of [facility] Influenza Virus Unknown Completed Universit y of Vaccine [facility] Hep B, Adol or Pedi Unknown Completed Unive rsity of Dosage [facility] Hep B, Adol or Pedi Unknown Completed Unive rsity of Dosage [facility] Hep B, Adol or Pedi Unknown Completed Unive rsity of Dosage [facility] Pneumococcal Unknown Completed University o f Polysaccharide, [place] [facility] PPSV23 (PNEUMOVAX) Branch Influenza Virus Unknown Completed Universit y of Vaccine [facility] PPD (TB) Unknown Completed [facility] Influenza Virus Unknown Completed Universit y of Vaccine (3+ yrs) [facility] dical Branch Pneumococcal 13 Unknown Completed Universit y of Conjugate, PCV13 [facility] dicor (Prevnar 13) Branch Influenza Virus Unknown Completed Universit y of Vaccine [facility] SARS-COV-2 COVID-19 Unknown Completed Unive rsity of PFIZER VACCINE [facility] SARS-COV-2 COVID-19 Unknown Completed Unive rsity of PFIZER VACCINE [facility] SARS-COV-2 COVID-19 Unknown Completed Unive rsity of DIMITRIS-SUCROSE [place] [facility] VACCINE 12 YRS+, Branch BIVALENT 0.3ML, IM, (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) Influenza Virus Unknown Completed Universit y of Vaccine,quad [place] [facility] Im,preserve Free Branch 65+ (FLUAD) HEPATITIS A Unknown Completed [facility] HEPATITIS A Unknown Completed [facility] Pneumococcal Unknown Completed University o f Polysaccharide, [place] [facility] PPSV23 (PNEUMOVAX) Branch PPD (TB) Unknown Completed [facility] PPD (TB) Unknown Completed [facility] TDAP (ADACEL) Unknown Completed [facility] Influenza Virus Unknown Completed Universit y of Vaccine [facility] Hep B, Adol or Pedi Unknown Completed Unive rsity of Dosage [facility] Hep B, Adol or Pedi Unknown Completed Unive rsity of Dosage [facility] Hep B, Adol or Pedi Unknown Completed Unive rsity of Dosage [facility] Pneumococcal Unknown Completed University o f Polysaccharide, [place] [facility] PPSV23 (PNEUMOVAX) Branch Influenza Virus Unknown Completed Universit y of Vaccine [facility] PPD (TB) Unknown Completed [facility] Influenza Virus Unknown Completed Universit y of Vaccine (3+ yrs) [facility] dical Branch Pneumococcal 13 Unknown Completed Universit y of Conjugate, PCV13 [facility] dicor (Prevnar 13) Branch Influenza Virus Unknown Completed Universit y of Vaccine [facility] SARS-COV-2 COVID-19 Unknown Completed Unive rsity of PFIZER VACCINE [facility] Branch SARS-COV-2 COVID-19 Unknown Completed Unive rsity of PFIZER VACCINE [facility] SARS-COV-2 COVID-19 Unknown Completed Unive rsity of DIMITRIS-SUCROSE [place] [facility] VACCINE 12 YRS+, Branch BIVALENT 0.3ML, IM, (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) Influenza Virus Unknown Completed Universit y of Vaccine,quad [place] [facility] Im,preserve Free Branch 65+ (FLUAD) HEPATITIS A Unknown Completed [facility] HEPATITIS A Unknown Completed [facility] Pneumococcal Unknown Completed University o f Polysaccharide, [place] [facility] PPSV23 (PNEUMOVAX) Branch PPD (TB) Unknown Completed [facility] PPD (TB) Unknown Completed [facility] TDAP (ADACEL) Unknown Completed [facility] Influenza Virus Unknown Completed Universit y of Vaccine [facility] Hep B, Adol or Pedi Unknown Completed Unive rsity of Dosage [facility] Hep B, Adol or Pedi Unknown Completed Unive rsity of Dosage [facility] Hep B, Adol or Pedi Unknown Completed Unive rsity of Dosage [facility] Pneumococcal Unknown Completed University o f Polysaccharide, [place] [facility] ica PPSV23 (PNEUMOVAX) Branch Influenza Virus Unknown Completed Universit y of Vaccine [facility] PPD (TB) Unknown Completed University [facility] Influenza Virus Unknown Completed Universit y of Vaccine (3+ yrs) [facility] dical Branch Pneumococcal 13 Unknown Completed Universit y of Conjugate, PCV13 [facility] dicor (Prevnar 13) Branch Influenza Virus Unknown Completed Universit y of Vaccine [facility] SARS-COV-2 COVID-19 Unknown Completed Unive rsity of PFIZER VACCINE [facility] SARS-COV-2 COVID-19 Unknown Completed Unive rsity of PFIZER VACCINE [facility] SARS-COV-2 COVID-19 Unknown Completed Unive rsity of DIMITRIS-SUCROSE [place] [facility] VACCINE 12 YRS+, Branch BIVALENT 0.3ML, IM, (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) Influenza Virus Unknown Completed Universit y of Vaccine,quad [place] [facility] Im,preserve Free Branch 65+ (FLUAD) PFIZER COVID-19 Unknown Completed [facility] PFIZER COVID-19 Unknown Completed [facility] PFIZER COVID-19 Unknown Completed [facility] PFIZER COVID-19 Unknown Completed [facility] PFIZER COVID-19 Unknown Completed [facility] PFIZER COVID-19 Unknown Completed [facility] PFIZER COVID-19 Unknown Completed [facility] PFIZER COVID-19 Unknown Completed [facility] PFIZER COVID-19 Unknown Completed [facility] PFIZER COVID-19 Unknown Completed [facility] PFIZER COVID-19 Unknown Completed [facility] PFIZER COVID-19 Unknown Completed [facility] PFIZER COVID-19 Unknown Completed [facility] PFIZER COVID-19 Unknown Completed [facility] PFIZER COVID-19 Unknown Completed [facility] PFIZER COVID-19 Unknown Completed [facility] PFIZER COVID-19 Unknown Completed [facility] PFIZER COVID-19 Unknown Completed [facility] PFIZER COVID-19 Unknown Completed [facility] PFIZER COVID-19 Unknown Completed [facility] Vital Signs Vital Name Observation Time Observation Value Comments Source Systolic blood 2023-03-17 21:51:00 171 mm[Hg] Univer sity of pressure [facility] Diastolic blood 2023-03-17 21:51:00 86 mm[Hg] Unive rsity of pressure [place] [facility] Heart rate 2023-03-17 21:51:00 55 /min [facility] [place] [facility] Body temperature 2023-03-17 21:51:00 36.17 Amina Univ ersity of [place] [facility] Respiratory rate 2023-03-17 21:51:00 18 /min Univ ersity of [place] [facility] Oxygen saturation in 2023-03-17 21:51:00 90 /min University of Arterial blood by [facility] Pulse oximetry Branch Body height 2023-03-17 04:16:00 162.6 cm [facility] [place] [facility] Body weight 2023-03-17 04:16:00 77.4 kg [facility] [place] [facility] BMI 2023-03-17 04:16:00 29.29 kg/m2 [facility] [place] [facility] Systolic blood 2023-01-27 23:00:00 179 mm[Hg] Univer sity of pressure [place] [facility] Diastolic blood 2023-01-27 23:00:00 101 mm[Hg] Unive rsity of pressure [place] [facility] Heart rate 2023-01-27 23:00:00 58 /min [facility] [place] [facility] Respiratory rate 2023-01-27 23:00:00 12 /min Univ ersity of [place] [facility] Oxygen saturation in 2023-01-27 23:00:00 99 /min University of Arterial blood by [facility] Pulse oximetry Branch Body temperature 2023-01-27 15:46:00 37.28 Amina Univ ersity of [place] [facility] Body weight 2023-01-27 15:46:00 79.379 kg [facility] [place] [facility] BMI 2023-01-27 15:46:00 30.04 kg/m2 [facility] [place] [facility] Systolic blood 2022-05-10 22:00:00 159 mm[Hg] Univer sity of pressure [place] [facility] Diastolic blood 2022-05-10 22:00:00 87 mm[Hg] Unive rsity of pressure [place] [facility] Heart rate 2022-05-10 22:00:00 56 /min [facility] [place] [facility] Body temperature 2022-05-10 22:00:00 36.61 Amina Univ [facility] [place] [facility] Respiratory rate 2022-05-10 22:00:00 17 /min Univ ersity of [place] [facility] Oxygen saturation in 2022-05-10 22:00:00 98 /min University of Arterial blood by [place] [employer] por[facility]irio Pulse oximetry Branch Body weight 2022-05-10 16:29:00 78.926 kg [facility] [place] [facility] BMI 2022-05-10 16:29:00 29.87 kg/m2 [facility] [place] [facility] Systolic blood 2022-05-08 22:30:00 168 mm[Hg] Univer sity of pressure [place] [facility] Diastolic blood 2022-05-08 22:30:00 85 mm[Hg] Unive rsity of pressure [place] [facility] Heart rate 2022-05-08 22:30:00 68 /min [facility] [place] [facility] Oxygen saturation in 2022-05-08 22:30:00 100 /min University of Arterial blood by [place] [employer] [facility]irio Pulse oximetry Branch Body temperature 2022-05-08 22:22:00 35.89 Amina Univ ers[facility] of [place] [facility] Respiratory rate 2022-05-08 22:22:00 14 /min Univ ersity [facility] [place] [facility] Body weight 2022-05-08 22:22:00 78.926 kg [facility] [place] [facility] BMI 2022-05-08 22:22:00 29.87 kg/m2 [facility] [place] [facility] Systolic blood 2022-05-07 00:00:00 149 mm[Hg] Univer sity of pressure [place] [facility] Diastolic blood 2022-05-07 00:00:00 132 mm[Hg] Unive rsity of pressure [place] [facility] Heart rate 2022-05-07 00:00:00 59 /min [facility] [place] [facility] Respiratory rate 2022-05-07 00:00:00 14 /min Univ ersity of [place] [facility] Oxygen saturation in 2022-05-07 00:00:00 99 /min University of Arterial blood by [place] [employer] [facility]io Pulse oximetry Branch Body temperature 2022-05-06 [...] 2022-04-22 19:50:00 69 /min Universi ty of [facility] Body temperature 2022-04-22 19:50:00 36.67 Amina Univ ers[facility] [place] [facility] Respiratory rate 2022-04-22 19:50:00 17 /min Univ ersity of [place] [facility] Body height 2022-04-22 19:50:00 162.6 cm [facility] [place] [facility] Body weight 2022-04-22 19:50:00 80.74 kg [facility] [place] [facility] BMI 2022-04-22 19:50:00 30.55 kg/m2 Universi ty of [facility] Oxygen saturation in 2022-04-22 19:50:00 96 /min University of Arterial blood by [facility] Pulse oximetry Branch Systolic blood 2022-03-05 15:23:00 167 mm[Hg] Univer sity of pressure [place] [facility] Diastolic blood 2022-03-05 15:23:00 105 mm[Hg] Unive rsity of pressure [place] [facility] Heart rate 2022-03-05 15:23:00 49 /min [facility] [place] [facility] Body temperature 2022-03-05 15:18:00 36.67 Amina Univ ersity of [facility] Branch Respiratory rate 2022-03-05 15:18:00 18 [...] 21:41:00 86 mm[Hg] Unive rsity of pressure [place] [facility] Heart rate 2022-02-16 21:41:00 51 /min [facility] [place] [facility] Body temperature 2022-02-16 21:41:00 36.56 Amina [facility] ersity of [facility] Respiratory rate 2022-02-16 21:41:00 17 /min [facility] Oxygen saturation in 2022-02-16 21:41:00 98 /min University of Arterial blood by [facility] Pulse oximetry Branch Body height 2022-02-11 16:02:00 162.6 cm [facility] ty [facility] [place] [facility] [place] Body weight 2022-02-11 16:02:00 79.379 kg [facility] ty [facility] [place] [facility] BMI 2022-02-11 16:02:00 30.04 kg/m2 Universi ty of [facility] Systolic blood 2021-11-20 13:47:00 165 mm[Hg] Univer sity of pressure [facility] Diastolic blood 2021-11-20 13:47:00 83 mm[Hg] Unive rsity of pressure [facility] Heart rate 2021-11-20 13:47:00 58 /min [facility] ty [facility] [place] [facility] Body temperature 2021-11-20 13:42:00 36.39 Amina [facility] ersity of [facility] Respiratory rate 2021-11-20 13:42:00 16 /min [facility] ersity of [facility] Body height 2021-11-20 13:42:00 162.6 cm [facility] ty of [place] [facility] Body weight 2021-11-20 13:42:00 84.369 kg [facility] [place] [facility] BMI 2021-11-20 13:42:00 31.93 kg/m2 [facility] [place] [facility] Systolic blood 2021-07-14 15:18:00 142 [...] 22:00:00 159 mm[Hg] Univer sity of pressure [place] [facility] Diastolic blood 2022-05-10 22:00:00 87 mm[Hg] Unive rsity of pressure [place] [facility] Heart rate 2022-05-10 22:00:00 56 /min [facility] [place] [facility] Body temperature 2022-05-10 22:00:00 36.61 Amina Univ ersity [facility] [place] [facility] Respiratory rate 2022-05-10 22:00:00 17 /min Univ ersity of [place] [facility] Oxygen saturation in 2022-05-10 22:00:00 98 /min University of Arterial blood by [place] [employer] porfirio Pulse oximetry Branch Body weight 2022-05-10 16:29:00 78.926 kg [facility] [place] [facility] BMI 2022-05-10 16:29:00 29.87 kg/m2 [facility] [place] [facility] Body height 2022-05-06 20:12:00 162.6 cm [facility] [place] [facility] Systolic blood 2022-03-05 15:23:00 167 [...] of [place] [facility] Oxygen saturation in 2022-02-16 21:41:00 98 /min University of Arterial blood by [place] [facility] Pulse oximetry Branch Systolic blood 2020-12-08 15:48:00 125 mm[Hg] Method ist [facility] pressure Diastolic blood 2020-12-08 15:48:00 76 mm[Hg] [facility] pressure Heart rate 2020-12-08 15:48:00 64 /min [facility] Body temperature 2020-12-08 15:48:00 36.61 Amina [facility] Respiratory rate 2020-12-08 15:48:00 17 /min [facility] Body height 2020-12-08 15:48:00 162.6 cm [facility] Body weight 2020-12-08 15:48:00 98.884 kg [facility] BMI 2020-12-08 15:48:00 37.42 kg/m2 [facility] Oxygen saturation in 2020-12-08 15:48:00 97 /min [facility] Arterial blood by Pulse oximetry Respitory Rate 2020-08-30 13:00:00 [facility] Systolic (mm Hg) 2020-08-30 13:00:00 Caesar [place] Diastolic (mm Hg) 2020-08-30 13:00:00 Mem o[facility] [place] Systolic (mm Hg) 2020-08-30 11:00:00 Caesar rial [place] Diastolic (mm Hg) 2020-08-30 11:00:00 Mem orial [place] Temperature Oral (F) 2020-08-30 11:00:00 98.4 F [facility] [place] Respitory Rate 2020-08-30 11:00:00 [facility] [place] Respitory Rate 2020-08-30 10:00:00 [facility] [place] Systolic (mm Hg) 2020-08-30 10:00:00 Caesar [facility] [place] Diastolic (mm Hg) 2020-08-30 10:00:00 Mem [facility] [place] Temperature Oral (F) 2020-08-30 00:00:00 96.9 F [facility] [place] Temperature Oral (F) 2020-08-29 11:26:00 97.6 F [facility] [place] Height 2020-08-29 10:30:00 162.56 cm [facility] Weight 2020-08-29 10:30:00 [facility] [place] BMI Calculated 2020-08-29 10:30:00 [facility] [place] Procedures Procedure Date / Time Performing Clinician Source Performed EKG-12 LEAD 2023-03-17 16:14:23 Anatoly Wells [facility] TRANSTHORACIC ECHO (TTE) 2023-03-17 15:10:44 Servando, Radha [facility] COMPLETE W/ CONTRAST Medical Bra [facility] URINE DRUG (IMMUNOASSAY) - 2023-03-17 08:25:00 [facility] COMPREHENSIVE DRUG SCREEN Medica l Branch URINALYSIS 2023-03-17 08:25:00 Servando, [facility] MAGNESIUM 2023-03-17 08:23:00 Servando, [facility] FREE T4 2023-03-17 08:23:00 Servando, [facility] BASIC METABOLIC PANEL (NA, 2023-03-17 08:23:00 Servando, [facility] K, CL, CO2, GLUCOSE, BUN, [facility] [place] CREATININE, [place]) IRON PANEL 2023-03-17 08:23:00 Servando, [facility] CBC WITH DIFF 2023-03-17 08:23:00 Servando, [facility] FREE T3 2023-03-17 08:23:00 Servando, [facility] TROPONIN I 2023-03-17 04:47:00 Servando, [facility] C-REACTIVE PROTEIN 2023-03-17 02:27:00 Servando, [facility] TROPONIN I 2023-03-17 02:27[facility]00 [facility] 2023-03-17 02:27:00 [facility] HORMONE [facility] Branch LIPID PANEL ([id number])(TOTAL 2023-03-17 02:27:00 Radha Al [facility] CHOLESTEROL, [facility] TRIGLYCERIDES, HDL) SERUM DRUG (IMMUNOASSAY) - 2023-03-17 02:27:[address] [facility] COMPREHENSIVE DRUG SCREEN Medica l Branch XR CHEST 2 VW 2023-03-16 23:25:00 Anatoly Wells [facility] TROPONIN I 2023-03-16 20:48:00 Anatoly Wells [facility] COMP. METABOLIC PANEL 2023-03-16 20:48:[address] [facility] ([id number]) [facility] [place] SEDIMENTATION RATE 2023-03-16 20:48:00 Radha Al [facility] CBC WITH DIFF 2023-03-16 20:48:00 Anatoly Wells [facility] GLYCOSYLATED HEMOGLOBIN 2023-03-16 20:48:00 Servando [facility] (A1C) [facility] D-DIMER 2023-03-16 20:48:00 Go Russell [facility] N-TERMINAL PRO-BNP 2023-03-16 20:48:00 Anatoly Wells [facility] US LOWER EXTREMITY VEIN 2023-03-16 19:53:22 Go Russell [facility] WITH COMPRESSION LEFT Medical Br anch (ONLY FOR RULE OUT DVT) CONSENT/REFUSAL FOR 2023-03-16 16:49:29 Doctor Unassigned, [facility] DIAGNOSIS AND TREATMENT [place] [facility] CONSENT/REFUSAL FOR 2023-03-16 14:08:10 Doctor Unassigned, [facility] DIAGNOSIS AND TREATMENT [place] [facility] PROTHROMBIN TIME / INR 2023-01-27 21:09:00 Bill Coles [facility] ACTIVATED PARTIAL THRMPLAS 2023-01-27 21:09:00 Bill Coles [facility] CT ABDOMEN PELVIS W 2023-01-27 20:54:00 Bill Coles [facility] CONTRAST [facility] LIPASE 2023-01-27 18:58:00 Bill Coles [place] [facility] MAGNESIUM 2023-01-27 18:58:00 Bill Coles [place] [facility] TROPONIN I 2023-01-27 18:58:00 Bill Coles [place] [facility] COMP. METABOLIC PANEL 2023-01-27 18:58:00 Bill Coles [facility] ([id number]) [facility] [place] CBC WITH DIFF 2023-01-27 18:58:00 Sanket, K [facility] URINALYSIS 2023-01-27 18:58:00 Bill Coles [facility] COVID-19 (ID NOW RAPID 2023-01-27 16:32:00 Bill Coles [facility] TESTING) Medical Branch URINALYSIS 2022-05-10 19:36:00 Home Matthews [facility] TROPONIN I 2022-05-10 18:34:00 Home Matthews [facility] COMP. METABOLIC PANEL 2022-05-10 18:34:00 Gerardo Home [facility] ([id number]) Medical Branch CBC WITH DIFF 2022-05-10 18:34:00 Home Matthews [facility] XR CHEST 2 VW 2022-05-10 17:24:58 Gerardo Home [facility] CONSENT/REFUSAL FOR 2022-05-10 16:26:23 Doctor Unassigned, [facility] DIAGNOSIS AND TREATMENT [place] [facility] CONSENT/REFUSAL FOR 2022-05-10 16:26:09 Doctor Unassigned, [facility] DIAGNOSIS AND TREATMENT [place] [facility] URINALYSIS 2022-05-08 22:43:00 Theresa Hickman [facility] XR CHEST 2 VW 2022-05-06 22:56:53 Anette Olea [facility] COMP. METABOLIC PANEL 2022-05-06 22:14:00 Anette Olea [facility] ([id number]) Medical Branch CBC WITH DIFF 2022-05-06 22:14:00 Anette Olea [facility] COVID-19 (ID NOW RAPID 2022-05-06 22:14:00 Anette Olea [facility] TESTING) Medical Branch BASIC METABOLIC PANEL (NA, 2022-04-22 21:23:[address] [facility] K, CL, CO2, GLUCOSE, BUN, Medica l Branch CREATININE, [place]) CBC WITH DIFF 2022-04-22 21:23:00 Paulette Gray [facility] CONSENT/REFUSAL FOR 2022-04-22 19:45:46 Doctor Unassigned, [facility] DIAGNOSIS AND TREATMENT [place] Medical Branch SARS-COV-2 COVID-19 2022-03-05 16:09:27 [facility] DIMITRIS-SUCROSE VACCINE [address] [place] [address] YRS+, BIVALENT 0.3ML, IM, (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) FLU 2022-03-05 16:09:27 [facility] VACC(),65+YR,0.5 Medica l Branch ML,IM,ADJUVANTED,QUAD(FLUA D) FLU 2022-03-05 16:09:27 [facility] VACC(),65+YR,0.5 Medica l Branch ML,IM,ADJUVANTED,QUAD(FLUA D) SARS-COV-2 COVID-19 2022-03-05 16:09:27 [facility] DIMITRIS-SUCROSE VACCINE [address] [place] [address] YRS+, BIVALENT 0.3ML, IM, (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) MAGNESIUM 2022-02-15 09:41:00 Radha Sofia [facility] BASIC METABOLIC PANEL (NA, 2022-02-15 09:41:00 Radha Sofia [facility] K, CL, CO2, GLUCOSE, BUN, Medica l Branch CREATININE, [place]) CBC WITH DIFF 2022-02-15 09:41:00 Radha [facility] N-TERMINAL PRO-BNP 2022-02-15 09:41:00 Sofia Garcia [facility] CBC WITH DIFF 2022-02-15 09:41:00 Radha Sofia [facility] BASIC METABOLIC PANEL (NA, 2022-02-15 09:41:00 Sofia Garcia [facility] K, CL, CO2, GLUCOSE, BUN, Medica l Branch CREATININE, CA) MAGNESIUM 2022-02-15 09:41:00 Radha [facility] N-TERMINAL PRO-BNP 2022-02-15 09:41:00 Sofia Garcia [facility] BASIC METABOLIC PANEL (NA, 2022-02-13 09:40:00 Sofia Garcia [facility] K, CL, CO2, GLUCOSE, BUN, Medica l Branch CREATININE, CA) CBC WITH DIFF 2022-02-13 09:40:00 Radha [facility] BASIC METABOLIC PANEL (NA, 2022-02-13 09:40:00 Sofia Garcia [facility] K, CL, CO2, GLUCOSE, BUN, Medica l Branch CREATININE, CA) CBC WITH DIFF 2022-02-13 09:40:00 Radha [facility] TROPONIN I 2022-02-11 23:41:00 Radha [facility] N-TERMINAL PRO-BNP 2022-02-11 23:41:00 Radha [facility] TROPONIN I 2022-02-11 23:41:00 Radha [facility] N-TERMINAL PRO-BNP 2022-02-11 23:41:00 Sofia Garcia [facility] HB ECG ROUTINE & RHYTHM 2022-02-11 22:15:36 [facility] TRANSTHORACIC ECHO (TTE) 2022-02-11 21:26:50 [facility] 2022-02-11 21:26:50 [facility]BD[facility] PELVIS W 2022-02-11 07:45:43 Reilly Means [facility] CT ABDOMEN PELVIS W 2022-02-11 07:45:43 Reilly Means [facility] RAPID INFLUENZA A/B 2022-02-11 06:54:00 Reilly Means [facility] RAPID INFLUENZA A/B 2022-02-11 06:54:00 Reilly Means [facility] URINALYSIS 2022-02-11 06:45:00 Reilly Means [facility] [...] BLOOD CULTURE SCREEN 2022-02-11 04:58:00 Reilly Means [facility] TROPONIN I 2022-02-11 04:58:00 Reilly Means [facility] COMP. METABOLIC PANEL 2022-02-11 04:58:00 Reilly Means [facility] ([id number]) Medical Branch CBC WITH DIFF 2022-02-11 04:58:00 Reilly Means [facility] PROTHROMBIN TIME / INR 2022-02-11 04:58:00 Reilly Means [facility] ACTIVATED PARTIAL THRMPLAS 2022-02-11 04:58:00 Reilly Means [facility] N-TERMINAL PRO-BNP 2022-02-11 04:58:00 Reilly Means [facility] LACTIC ACID WHOLE BLOOD 2022-02-11 04:58:00 Reilly Means [facility] COVID-19 (ID NOW RAPID 2022-02-11 04:58:00 Reilly Means [facility] TESTING) Medical Branch LAB ONLY COVID 2022-02-11 04:58:00 Reilly Means [facility] Branch CBC WITH DIFF 2022-02-11 04:58:00 Reilly Means [facility] ACTIVATED PARTIAL THRMPLAS 2022-02-11 04:58:00 Reilly Means [facility] PROTHROMBIN TIME / INR 2022-02-11 04:58:00 Reilly Means [facility] COVID-19 (ID NOW RAPID 2022-02-11 04:58:00 Reilly Means [facility] TESTING) Medical Branch COMP. METABOLIC PANEL 2022-02-11 04:58:00 Reilly Means [facility] ([id number]) Medical Branch TROPONIN I 2022-02-11 04:58:00 Reilly Means [facility] N-TERMINAL PRO-BNP 2022-02-11 04:58:00 Reilly Means [facility] BLOOD CULTURE SCREEN 2022-02-11 04:58:00 Reilly Means [facility] LACTIC ACID WHOLE BLOOD 2022-02-11 04:58:00 Reilly Means [facility] LAB ONLY COVID 2022-02-11 04:58:00 Reilly Means [facility] INTERPRETATION [facility] XR CHEST 1 VW 2022-02-11 04:27:42 Reilly Means [facility] XR CHEST 1 VW 2022-02-11 04:27:42 Reilly Means [facility] HOSPITAL ADMISSION 2022-02-10 05:01:00 Doctor Unassigned, [facility] HOSPITAL ADMISSION 2022-02-10 05:01:00 Doctor Unassigned, [facility] ECG 12-LEAD 2021-07-14 15:14:00 Elan Lira [facility] [id number] 2021-06-17 00:00:00 GRACEA [facility] [place] GASTROINTESTINAL PANEL 2020-12-08 22:21:00 Eliseo Arce [facility] XR ABDOMEN 1 VW 2020-12-08 18:06:32 Eliseo Arce spital OR [place] < 1 HOUR 2020-09-05 22:39:00 Eliseo Arce spital SURGICAL PATHOLOGY REQUEST 2020-09-05 21:54:00 Eliseo Arce [facility] XR CHEST 1 VW PORTABLE 2020-09-05 19:55:00 Eliseo Arce [facility] DISCHARGE PATIENT 2020-09-05 17:27:55 Lucas Harris [facility] ME AN ELECTIVE 2020-09-05 16:47:23 Kirit Flood [facility] ENDOTRACHEAL AIRWAY EGD, INTRAOPERATIVE 2020-09-05 16:27:00 [facility] 2020-09-05 15:04:00 Sarai Maharaj [facility] TIME (PTT) M. PROTHROMBIN TIME WITH INR 2020-09-05 15:04:00 Mindy Maharaj [facility]. Plan of Care Planned Activity Planned Date Details Comments Source Future Scheduled 2023-03-17 Screening for [facility] Test 01:30:37 malignant neoplasm of colon (procedure) [code = 949563896] Future Scheduled 2023-03-17 Screening for [facility] Test 01:30:37 malignant neoplasm of colon (procedure) [code = 001005919] Future Scheduled 2023-03-17 Screening for [facility] Test 01:30:37 malignant neoplasm of colon (procedure) [code = 073821688] Future Scheduled 2023-03-17 SHINGLES VACCINES (1 Met [facility] Test 01:30:37 of 2) [code = SHINGLES VACCINES (1 of 2)] Future Scheduled 2023-03-17 BREAST CANCER [facility] Test 01:30:37 SCREENING [code = BREAST CANCER SCREENING] Future Scheduled 2023-03-17 Screening for [facility] Test 01:30:37 malignant neoplasm of colon (procedure) [code = 555324337] Future Scheduled 2023-03-17 Screening for [facility] Test 01:30:37 malignant neoplasm of colon (procedure) [code = 539844412] Future Scheduled 2023-03-17 HEPATITIS B VACCINES Met [facility] Test 01:30:37 (1 of 3 - Risk 3-dose series) [code = HEPATITIS B VACCINES (1 of 3 - Risk 3-dose series)] Future Scheduled 2023-03-17 65+ PNEUMOCOCCAL [facility] Test 01:30:37 VACCINE (4 - PPSV23 or PCV20) [code = 65+ PNEUMOCOCCAL VACCINE (4 - PPSV23 or PCV20)] Future Scheduled 2023-03-17 COVID-19 VACCINE (3 - [facility] Test 01:30:37 season) [code = COVID-19 VACCINE (3 - season)] Future Scheduled 2023-03-17 INFLUENZA VACCINE (#1) [facility] Test 01:30:37 [code = INFLUENZA VACCINE (#1)] Future Scheduled 2023-03-10 Screening for [facility] Test 01:58:53 malignant neoplasm of colon (procedure) [code = 465849507] Future Scheduled 2023-03-10 Screening for [facility] Test 01:58:53 malignant neoplasm of colon (procedure) [code = 699173635] Future Scheduled 2023-03-10 Screening for [facility] Test 01:58:53 malignant neoplasm of colon (procedure) [code = 153203213] Future Scheduled 2023-03-10 SHINGLES VACCINES (1 Met [facility] Test 01:58:53 of 2) [code = SHINGLES VACCINES (1 of 2)] Future Scheduled 2023-03-10 BREAST CANCER [facility] Test 01:58:53 SCREENING [code = BREAST CANCER SCREENING] Future Scheduled 2023-03-10 Screening for [facility] Test 01:58:53 malignant neoplasm of colon (procedure) [code = 668182477] Future Scheduled 2023-03-10 Screening for [facility] Test 01:58:53 malignant neoplasm of colon (procedure) [code = 910221595] Future Scheduled 2023-03-10 HEPATITIS B VACCINES Met [facility] Test 01:58:53 (1 of 3 - Risk 3-dose series) [code = HEPATITIS B VACCINES (1 of 3 - Risk 3-dose series)] Future Scheduled 2023-03-10 RSV VACCINES > 60 YR Met [facility] Test 01:58:53 (1 - 1-dose 60+ series) [code = RSV VACCINES > 60 YR (1 - 1-dose 60+ series)] Future Scheduled 2023-03-10 65+ PNEUMOCOCCAL [facility] Test 01:58:53 VACCINE (4 - PPSV23 or PCV20) [code = 65+ PNEUMOCOCCAL VACCINE (4 - PPSV23 or PCV20)] Future Scheduled 2023-03-10 COVID-19 VACCINE (3 - [facility] Test 01:58:53 season) [code = COVID-19 VACCINE (3 - season)] Future Scheduled 2023-03-10 INFLUENZA VACCINE (#1) [facility] Test 01:58:53 [code = INFLUENZA VACCINE (#1)] Future Scheduled 2023-03-03 Screening for [facility] Test 11:31:14 malignant neoplasm of colon (procedure) [code = 954160926] Future Scheduled 2023-03-03 Screening for [facility] Test 11:31:14 malignant neoplasm of colon (procedure) [code = 940262459] Future Scheduled 2023-03-03 Screening for [facility] Test 11:31:14 malignant neoplasm of colon (procedure) [code = 362469643] Future Scheduled 2023-03-03 SHINGLES VACCINES (1 Met [facility] Test 11:31:14 of 2) [code = SHINGLES VACCINES (1 of 2)] Future Scheduled 2023-03-03 BREAST CANCER [facility] Test 11:31:14 SCREENING [code = BREAST CANCER SCREENING] Future Scheduled 2023-03-03 Screening for [facility] Test 11:31:14 malignant neoplasm of colon (procedure) [code = 626873531] Future Scheduled 2023-03-03 Screening for [facility] Test 11:31:14 malignant neoplasm of colon (procedure) [code = 196761799] Future Scheduled 2023-03-03 HEPATITIS B VACCINES Met [facility] Test 11:31:14 (1 of 3 - Risk 3-dose series) [code = HEPATITIS B VACCINES (1 of 3 - Risk 3-dose series)] Future Scheduled 2023-03-03 65+ PNEUMOCOCCAL [facility] Test 11:31:14 VACCINE (4 - PPSV23 or PCV20) [code = 65+ PNEUMOCOCCAL VACCINE (4 - PPSV23 or PCV20)] Future Scheduled 2023-03-03 COVID-19 VACCINE (3 - [facility] Test 11:31:14 season) [code = COVID-19 VACCINE (3 - season)] Future Scheduled 2023-03-03 INFLUENZA VACCINE (#1) [facility] Test 11:31:14 [code = INFLUENZA VACCINE (#1)] Future Scheduled 2023-02-15 Screening for [facility] Test 13:19:29 malignant neoplasm of colon (procedure) [code = 940387996] Future Scheduled 2023-02-15 Screening for [facility] Test 13:19:29 malignant neoplasm of colon (procedure) [code = 555267729] Future Scheduled 2023-02-15 Screening for [facility] Test 13:19:29 malignant neoplasm of colon (procedure) [code = 231358111] Future Scheduled 2023-02-15 SHINGLES VACCINES (1 Met [facility] Test 13:19:29 of 2) [code = SHINGLES VACCINES (1 of 2)] Future Scheduled 2023-02-15 BREAST CANCER [facility] Test 13:19:29 SCREENING [code = BREAST CANCER SCREENING] Future Scheduled 2023-02-15 Screening for [facility] Test 13:19:29 malignant neoplasm of colon (procedure) [code = 059112787] Future Scheduled 2023-02-15 Screening for [facility] Test 13:19:29 malignant neoplasm of colon (procedure) [code = 726409526] Future Scheduled 2023-02-15 HEPATITIS B VACCINES Met [facility] Test 13:19:29 (1 of 3 - Risk 3-dose series) [code = HEPATITIS B VACCINES (1 of 3 - Risk 3-dose series)] Future Scheduled 2023-02-15 COVID-19 VACCINE (3 - Me [facility] Test 13:19:29 Pfizer series) [code = COVID-19 VACCINE (3 - Pfizer series)] Future Scheduled 2023-02-15 65+ PNEUMOCOCCAL [facility] Test 13:19:29 VACCINE (4 - PPSV23 or PCV20) [code = 65+ PNEUMOCOCCAL VACCINE (4 - PPSV23 or PCV20)] Future Scheduled 2023-02-15 INFLUENZA VACCINE (#1) M [facility] Test 13:19:29 [code = INFLUENZA VACCINE (#1)] Future Scheduled 2023-02-15 Screening for [facility] Test 13:19:29 malignant neoplasm of colon (procedure) [code = 547802843] Future Scheduled 2023-02-15 Screening for [facility] Test 13:19:29 malignant neoplasm of colon (procedure) [code = 810987426] Future Scheduled 2023-02-15 Screening for [facility] Test 13:19:29 malignant neoplasm of colon (procedure) [code = 624384012] Future Scheduled 2023-02-15 SHINGLES VACCINES (1 Met [facility] Test 13:19:29 of 2) [code = SHINGLES VACCINES (1 of 2)] Future Scheduled 2023-02-15 BREAST CANCER [facility] Test 13:19:29 SCREENING [code = BREAST CANCER SCREENING] Future Scheduled 2023-02-15 Screening for [facility] Test 13:19:29 malignant neoplasm of colon (procedure) [code = 227058596] Future Scheduled 2023-02-15 Screening for [facility] Test 13:19:29 malignant neoplasm of colon (procedure) [code = 581865368] Future Scheduled 2023-02-15 HEPATITIS B VACCINES Met [facility] Test 13:19:29 (1 of 3 - Risk 3-dose series) [code = HEPATITIS B VACCINES (1 of 3 - Risk 3-dose series)] Future Scheduled 2023-02-15 COVID-19 VACCINE (3 - Me [facility] Test 13:19:29 Pfizer series) [code = COVID-19 VACCINE (3 - Pfizer series)] Future Scheduled 2023-02-15 65+ PNEUMOCOCCAL [facility] Test 13:19:29 VACCINE (4 - PPSV23 or PCV20) [code = 65+ PNEUMOCOCCAL VACCINE (4 - PPSV23 or PCV20)] Future Scheduled 2023-02-15 INFLUENZA VACCINE (#1) M [facility] Test 13:19:29 [code = INFLUENZA VACCINE (#1)] Future Scheduled 2023-02-15 Screening for [facility] Test 13:19:29 malignant neoplasm of colon (procedure) [code = 551792571] Future Scheduled 2023-02-15 Screening for [facility] Test 13:19:29 malignant neoplasm of colon (procedure) [code = 558537633] Future Scheduled 2023-02-15 Screening for [facility] Test 13:19:29 malignant neoplasm of colon (procedure) [code = 804469906] Future Scheduled 2023-02-15 SHINGLES VACCINES (1 Met [facility] Test 13:19:29 of 2) [code = SHINGLES VACCINES (1 of 2)] Future Scheduled 2023-02-15 BREAST CANCER [facility] Test 13:19:29 SCREENING [code = BREAST CANCER SCREENING] Future Scheduled 2023-02-15 Screening for [facility] Test 13:19:29 malignant neoplasm of colon (procedure) [code = 965971132] Future Scheduled 2023-02-15 Screening for [facility] Test 13:19:29 malignant neoplasm of colon (procedure) [code = 498394601] Future Scheduled 2023-02-15 HEPATITIS B VACCINES Met [facility] Test 13:19:29 (1 of 3 - Risk 3-dose series) [code = HEPATITIS B VACCINES (1 of 3 - Risk 3-dose series)] Future Scheduled 2023-02-15 COVID-19 VACCINE (3 - [facility] Test 13:19:29 Pfizer series) [code = COVID-19 VACCINE (3 - Pfizer series)] Future Scheduled 2023-02-15 65+ PNEUMOCOCCAL [facility] Test 13:19:29 VACCINE (4 - PPSV23 or PCV20) [code = 65+ PNEUMOCOCCAL VACCINE (4 - PPSV23 or PCV20)] Future Scheduled 2023-02-15 INFLUENZA VACCINE (#1) [facility] Test 13:19:29 [code = INFLUENZA VACCINE (#1)] Future Scheduled 2023-02-15 Screening for [facility] Test 13:19:29 malignant neoplasm of colon (procedure) [code = 197675340] Future Scheduled 2023-02-15 Screening for [facility] Test 13:19:29 malignant neoplasm of colon (procedure) [code = 166352083] Future Scheduled 2023-02-15 Screening for [facility] Test 13:19:29 malignant neoplasm of colon (procedure) [code = 772429724] Future Scheduled 2023-02-15 SHINGLES VACCINES (1 Met [facility] Test 13:19:29 of 2) [code = SHINGLES VACCINES (1 of 2)] Future Scheduled 2023-02-15 BREAST CANCER [facility] Test 13:19:29 SCREENING [code = BREAST CANCER SCREENING] Future Scheduled 2023-02-15 Screening for [facility] Test 13:19:29 malignant neoplasm of colon (procedure) [code = 243570625] Future Scheduled 2023-02-15 Screening for [facility] Test 13:19:29 malignant neoplasm of colon (procedure) [code = 261492768] Future Scheduled 2023-02-15 HEPATITIS B VACCINES Met [facility] Test 13:19:29 (1 of 3 - Risk 3-dose series) [code = HEPATITIS B VACCINES (1 of 3 - Risk 3-dose series)] Future Scheduled 2023-02-15 COVID-19 VACCINE (3 - Me [facility] Test 13:19:29 Pfizer series) [code = COVID-19 VACCINE (3 - Pfizer series)] Future Scheduled 2023-02-15 65+ PNEUMOCOCCAL [facility] Test 13:19:29 VACCINE (4 - PPSV23 or PCV20) [code = 65+ PNEUMOCOCCAL VACCINE (4 - PPSV23 or PCV20)] Future Scheduled 2023-02-15 INFLUENZA VACCINE (#1) [facility] Test 13:19:29 [code = INFLUENZA VACCINE (#1)] Future Scheduled 2023-02-15 Screening for [facility] Test 13:19:29 malignant neoplasm of colon (procedure) [code = 522641506] Future Scheduled 2023-02-15 Screening for [facility] Test 13:19:29 malignant neoplasm of colon (procedure) [code = 499803664] Future Scheduled 2023-02-15 Screening for [facility] Test 13:19:29 malignant neoplasm of colon (procedure) [code = 167016131] Future Scheduled 2023-02-15 SHINGLES VACCINES (1 Met [facility] Test 13:19:29 of 2) [code = SHINGLES VACCINES (1 of 2)] Future Scheduled 2023-02-15 BREAST CANCER [facility] Test 13:19:29 SCREENING [code = BREAST CANCER SCREENING] Future Scheduled 2023-02-15 Screening for [facility] Test 13:19:29 malignant neoplasm of colon (procedure) [code = 469120978] Future Scheduled 2023-02-15 Screening for [facility] Test 13:19:29 malignant neoplasm of colon (procedure) [code = 208804236] Future Scheduled 2023-02-15 HEPATITIS B VACCINES Met [facility] Test 13:19:29 (1 of 3 - Risk 3-dose series) [code = HEPATITIS B VACCINES (1 of 3 - Risk 3-dose series)] Future Scheduled 2023-02-15 COVID-19 VACCINE (3 - Me [facility] Test 13:19:29 Pfizer series) [code = COVID-19 VACCINE (3 - Pfizer series)] Future Scheduled 2023-02-15 65+ PNEUMOCOCCAL [facility] Test 13:19:29 VACCINE (4 - PPSV23 or PCV20) [code = 65+ PNEUMOCOCCAL VACCINE (4 - PPSV23 or PCV20)] Future Scheduled 2023-02-15 INFLUENZA VACCINE (#1) [facility] Test 13:19:29 [code = INFLUENZA VACCINE (#1)] Future Scheduled 2023-02-10 Screening for [facility] Test 19:08:20 malignant neoplasm of colon (procedure) [code = 189528831] Future Scheduled 2023-02-10 Screening for [facility] Test 19:08:20 malignant neoplasm of colon (procedure) [code = 909584930] Future Scheduled 2023-02-10 Screening for [facility] Test 19:08:20 malignant neoplasm of colon (procedure) [code = 267796682] Future Scheduled 2023-02-10 SHINGLES VACCINES (1 Met [facility] Test 19:08:20 of 2) [code = SHINGLES VACCINES (1 of 2)] Future Scheduled 2023-02-10 BREAST CANCER [facility] Test 19:08:20 SCREENING [code = BREAST CANCER SCREENING] Future Scheduled 2023-02-10 Screening for [facility] Test 19:08:20 malignant neoplasm of colon (procedure) [code = 530055945] Future Scheduled 2023-02-10 Screening for [facility] Test 19:08:20 malignant neoplasm of colon (procedure) [code = 038380614] Future Scheduled 2023-02-10 HEPATITIS B VACCINES Met [facility] Test 19:08:20 (1 of 3 - Risk 3-dose series) [code = HEPATITIS B VACCINES (1 of 3 - Risk 3-dose series)] Future Scheduled 2023-02-10 COVID-19 VACCINE (3 - Me [facility] Test 19:08:20 Pfizer series) [code = COVID-19 VACCINE (3 - Pfizer series)] Future Scheduled 2023-02-10 65+ PNEUMOCOCCAL [facility] Test 19:08:20 VACCINE (4 - PPSV23 or PCV20) [code = 65+ PNEUMOCOCCAL VACCINE (4 - PPSV23 or PCV20)] Future Scheduled 2023-02-10 INFLUENZA VACCINE (#1) [facility] Test 19:08:20 [code = INFLUENZA VACCINE (#1)] Future Scheduled 2023-02-10 Screening for [facility] Test 19:08:20 malignant neoplasm of colon (procedure) [code = 530272412] Future Scheduled 2023-02-10 Screening for [facility] Test 19:08:20 malignant neoplasm of colon (procedure) [code = 152742440] Future Scheduled 2023-02-10 Screening for [facility] Test 19:08:20 malignant neoplasm of colon (procedure) [code = 025599344] Future Scheduled 2023-02-10 SHINGLES VACCINES (1 Met [facility] Test 19:08:20 of 2) [code = SHINGLES VACCINES (1 of 2)] Future Scheduled 2023-02-10 BREAST CANCER [facility] Test 19:08:20 SCREENING [code = BREAST CANCER SCREENING] Future Scheduled 2023-02-10 Screening for [facility] Test 19:08:20 malignant neoplasm of colon (procedure) [code = 447905030] Future Scheduled 2023-02-10 Screening for [facility] Test 19:08:20 malignant neoplasm of colon (procedure) [code = 513201620] Future Scheduled 2023-02-10 HEPATITIS B VACCINES Met [facility] Test 19:08:20 (1 of 3 - Risk 3-dose series) [code = HEPATITIS B VACCINES (1 of 3 - Risk 3-dose series)] Future Scheduled 2023-02-10 COVID-19 VACCINE (3 - Me [facility] Test 19:08:20 Pfizer series) [code = COVID-19 VACCINE (3 - Pfizer series)] Future Scheduled 2023-02-10 65+ PNEUMOCOCCAL [facility] Test 19:08:20 VACCINE (4 - PPSV23 or PCV20) [code = 65+ PNEUMOCOCCAL VACCINE (4 - PPSV23 or PCV20)] Future Scheduled 2023-02-10 INFLUENZA VACCINE (#1) [facility] Test 19:08:20 [code = INFLUENZA VACCINE (#1)] Future Scheduled 2023-02-07 Screening for [facility] Test 14:07:46 malignant neoplasm of colon (procedure) [code = 584108155] Future Scheduled 2023-02-07 Screening for [facility] Test 14:07:46 malignant neoplasm of colon (procedure) [code = 777812783] Future Scheduled 2023-02-07 Screening for [facility] Test 14:07:46 malignant neoplasm of colon (procedure) [code = 744034247] Future Scheduled 2023-02-07 SHINGLES VACCINES (1 Met [facility] Test 14:07:46 of 2) [code = SHINGLES VACCINES (1 of 2)] Future Scheduled 2023-02-07 BREAST CANCER [facility] Test 14:07:46 SCREENING [code = BREAST CANCER SCREENING] Future Scheduled 2023-02-07 Screening for [facility] Test 14:07:46 malignant neoplasm of colon (procedure) [code = 330275210] Future Scheduled 2023-02-07 Screening for [facility] Test 14:07:46 malignant neoplasm of colon (procedure) [code = 485129709] Future Scheduled 2023-02-07 HEPATITIS B VACCINES Met [facility] Test 14:07:46 (1 of 3 - Risk 3-dose series) [code = HEPATITIS B VACCINES (1 of 3 - Risk 3-dose series)] Future Scheduled 2023-02-07 COVID-19 VACCINE (3 - [facility] Test 14:07:46 Pfizer series) [code = COVID-19 VACCINE (3 - Pfizer series)] Future Scheduled 2023-02-07 65+ PNEUMOCOCCAL [facility] Test 14:07:46 VACCINE (4 - PPSV23 or PCV20) [code = 65+ PNEUMOCOCCAL VACCINE (4 - PPSV23 or PCV20)] Future Scheduled 2023-02-07 INFLUENZA VACCINE (#1) M [facility] Test 14:07:46 [code = INFLUENZA VACCINE (#1)] Future Scheduled 2023 Screening for [facility] Test 08:21:28 malignant neoplasm of colon (procedure) [code = 052018873] Future Scheduled 2023 Screening for [facility] Test 08:21:28 malignant neoplasm of colon (procedure) [code = 759158659] Future Scheduled 2023 Screening for [facility] Test 08:21:28 malignant neoplasm of colon (procedure) [code = 436819019] Future Scheduled 2023 SHINGLES VACCINES (1 Met [facility] Test 08:21:28 of 2) [code = SHINGLES VACCINES (1 of 2)] Future Scheduled 2023 BREAST CANCER [facility] Test 08:21:28 SCREENING [code = BREAST CANCER SCREENING] Future Scheduled 2023 Screening for [facility] Test 08:21:28 malignant neoplasm of colon (procedure) [code = 584540486] Future Scheduled 2023 Screening for [facility] Test 08:21:28 malignant neoplasm of colon (procedure) [code = 730221646] Future Scheduled 2023 HEPATITIS B VACCINES Met [facility] Test 08:21:28 (1 of 3 - Risk 3-dose series) [code = HEPATITIS B VACCINES (1 of 3 - Risk 3-dose series)] Future Scheduled 2023 COVID-19 VACCINE (3 - [facility] Test 08:21:28 Pfizer series) [code = COVID-19 VACCINE (3 - Pfizer series)] Future Scheduled 2023 65+ PNEUMOCOCCAL [facility] Test 08:21:28 VACCINE (4 - PPSV23 if available, else PCV20) [code = 65+ PNEUMOCOCCAL VACCINE (4 - PPSV23 if available, else PCV20)] Future Scheduled 2023 INFLUENZA VACCINE (#1) [facility] Test 08:21:28 [code = INFLUENZA VACCINE (#1)] Future Scheduled 2023 Screening for [facility] Test 08:21:28 malignant neoplasm of colon (procedure) [code = 879967415] Future Scheduled 2023 Screening for [facility] Test 08:21:28 malignant neoplasm of colon (procedure) [code = 125476854] Future Scheduled 2023 Screening for [facility] Test 08:21:28 malignant neoplasm of colon (procedure) [code = 395790347] Future Scheduled 2023 SHINGLES VACCINES (1 Met [facility] Test 08:21:28 of 2) [code = SHINGLES VACCINES (1 of 2)] Future Scheduled 2023 BREAST CANCER [facility] Test 08:21:28 SCREENING [code = BREAST CANCER SCREENING] Future Scheduled 2023 Screening for [facility] Test 08:21:28 malignant neoplasm of colon (procedure) [code = 142712943] Future Scheduled 2023 Screening for [facility] Test 08:21:28 malignant neoplasm of colon (procedure) [code = 235805661] Future Scheduled 2023 HEPATITIS B VACCINES Met [facility] Test 08:21:28 (1 of 3 - Risk 3-dose series) [code = HEPATITIS B VACCINES (1 of 3 - Risk 3-dose series)] Future Scheduled 2023 COVID-19 VACCINE (3 - Me [facility] Test 08:21:28 Pfizer series) [code = COVID-19 VACCINE (3 - Pfizer series)] Future Scheduled 2023 65+ PNEUMOCOCCAL [facility] Test 08:21:28 VACCINE (4 - PPSV23 if available, else PCV20) [code = 65+ PNEUMOCOCCAL VACCINE (4 - PPSV23 if available, else PCV20)] Future Scheduled 2023 INFLUENZA VACCINE (#1) [facility] Test 08:21:28 [code = INFLUENZA VACCINE (#1)] Future Scheduled 2023-01-17 Screening for [facility] Test 02:09:59 malignant neoplasm of colon (procedure) [code = 681243979] Future Scheduled 2023-01-17 Screening for [facility] Test 02:09:59 malignant neoplasm of colon (procedure) [code = 523358928] Future Scheduled 2023-01-17 Screening for [facility] Test 02:09:59 malignant neoplasm of colon (procedure) [code = 688796650] Future Scheduled 2023-01-17 SHINGLES VACCINES (1 Met [facility] Test 02:09:59 of 2) [code = SHINGLES VACCINES (1 of 2)] Future Scheduled 2023-01-17 BREAST CANCER [facility] Test 02:09:59 SCREENING [code = BREAST CANCER SCREENING] Future Scheduled 2023-01-17 Screening for [facility] Test 02:09:59 malignant neoplasm of colon (procedure) [code = 399528181] Future Scheduled 2023-01-17 Screening for [facility] Test 02:09:59 malignant neoplasm of colon (procedure) [code = 650283131] Future Scheduled 2023-01-17 HEPATITIS B VACCINES Met [facility] Test 02:09:59 (1 of 3 - Risk 3-dose series) [code = HEPATITIS B VACCINES (1 of 3 - Risk 3-dose series)] Future Scheduled 2023-01-17 COVID-19 VACCINE (3 - Me [facility] Test 02:09:59 Pfizer series) [code = COVID-19 VACCINE (3 - Pfizer series)] Future Scheduled 2023-01-17 65+ PNEUMOCOCCAL [facility] Test 02:09:59 VACCINE (4 - PPSV23 if available, else PCV20) [code = 65+ PNEUMOCOCCAL VACCINE (4 - PPSV23 if available, else PCV20)] Future Scheduled 2023-01-17 INFLUENZA VACCINE (#1) [facility] Test 02:09:59 [code = INFLUENZA VACCINE (#1)] Future Scheduled 2022-12-23 Screening for [facility] Test 06:27:39 malignant neoplasm of colon (procedure) [code = 052558458] Future Scheduled 2022-12-23 Screening for [facility] Test 06:27:39 malignant neoplasm of colon (procedure) [code = 231775681] Future Scheduled 2022-12-23 Screening for [facility] Test 06:27:39 malignant neoplasm of colon (procedure) [code = 494873914] Future Scheduled 2022-12-23 SHINGLES VACCINES (1 Met [facility] Test 06:27:39 of 2) [code = SHINGLES VACCINES (1 of 2)] Future Scheduled 2022-12-23 BREAST CANCER [facility] Test 06:27:39 SCREENING [code = BREAST CANCER SCREENING] Future Scheduled 2022-12-23 Screening for [facility] Test 06:27:39 malignant neoplasm of colon (procedure) [code = 608035310] Future Scheduled 2022-12-23 Screening for [facility] Test 06:27:39 malignant neoplasm of colon (procedure) [code = 905339122] Future Scheduled 2022-12-23 HEPATITIS B VACCINES Met [facility] Test 06:27:39 (1 of 3 - Risk 3-dose series) [code = HEPATITIS B VACCINES (1 of 3 - Risk 3-dose series)] Future Scheduled 2022-12-23 COVID-19 VACCINE (3 - [facility] Test 06:27:39 Pfizer series) [code = COVID-19 VACCINE (3 - Pfizer series)] Future Scheduled 2022-12-23 65+ PNEUMOCOCCAL [facility] Test 06:27:39 VACCINE (4 - PPSV23 if available, else PCV20) [code = 65+ PNEUMOCOCCAL VACCINE (4 - PPSV23 if available, else PCV20)] Future Scheduled 2022-12-23 INFLUENZA VACCINE Method [facility] Test 06:27:39 [code = INFLUENZA VACCINE] Future Scheduled 2022-12-23 Screening for [facility] Test 06:27:39 malignant neoplasm of colon (procedure) [code = 771243139] Future Scheduled 2022-12-23 Screening for [facility] Test 06:27:39 malignant neoplasm of colon (procedure) [code = 941460871] Future Scheduled 2022-12-23 Screening for [facility] Test 06:27:39 malignant neoplasm of colon (procedure) [code = 925991262] Future Scheduled 2022-12-23 SHINGLES VACCINES (1 Met [facility] Test 06:27:39 of 2) [code = SHINGLES VACCINES (1 of 2)] Future Scheduled 2022-12-23 BREAST CANCER [facility] Test 06:27:39 SCREENING [code = BREAST CANCER SCREENING] Future Scheduled 2022-12-23 Screening for [facility] Test 06:27:39 malignant neoplasm of colon (procedure) [code = 157674284] Future Scheduled 2022-12-23 Screening for [facility] Test 06:27:39 malignant neoplasm of colon (procedure) [code = 898428399] Future Scheduled 2022-12-23 HEPATITIS B VACCINES Met [facility] Test 06:27:39 (1 of 3 - Risk 3-dose series) [code = HEPATITIS B VACCINES (1 of 3 - Risk 3-dose series)] Future Scheduled 2022-12-23 COVID-19 VACCINE (3 - [facility] Test 06:27:39 Pfizer series) [code = COVID-19 VACCINE (3 - Pfizer series)] Future Scheduled 2022-12-23 65+ PNEUMOCOCCAL [facility] Test 06:27:39 VACCINE (4 - PPSV23 if available, else PCV20) [code = 65+ PNEUMOCOCCAL VACCINE (4 - PPSV23 if available, else PCV20)] Future Scheduled 2022-12-23 INFLUENZA VACCINE Method [facility] Test 06:27:39 [code = INFLUENZA VACCINE] Future Scheduled 2022-12-23 [facility] Test 06:27:39 malignant neoplasm of colon (procedure) [code = 564188036] Future Scheduled 2022-12-23 Screening for [facility] Test 06:27:39 malignant neoplasm of colon (procedure) [code = 848895905] Future Scheduled 2022-12-23 Screening for [facility] Test 06:27:39 malignant neoplasm of colon (procedure) [code = 511524416] Future Scheduled 2022-12-23 SHINGLES VACCINES (1 Met [facility] Test 06:27:39 of 2) [code = SHINGLES VACCINES (1 of 2)] Future Scheduled 2022-12-23 BREAST CANCER [facility] Test 06:27:39 SCREENING [code = BREAST CANCER SCREENING] Future Scheduled 2022-12-23 Screening for [facility] Test 06:27:39 malignant neoplasm of colon (procedure) [code = 225388326] Future Scheduled 2022-12-23 Screening for [facility] Test 06:27:39 malignant neoplasm of colon (procedure) [code = 684944800] Future Scheduled 2022-12-23 HEPATITIS B VACCINES Met [facility] Test 06:27:39 (1 of 3 - Risk 3-dose series) [code = HEPATITIS B VACCINES (1 of 3 - Risk 3-dose series)] Future Scheduled 2022-12-23 COVID-19 VACCINE (3 - [facility] Test 06:27:39 Pfizer series) [code = COVID-19 VACCINE (3 - Pfizer series)] Future Scheduled 2022-12-23 65[facility] VACCINE (4 - PPSV23 if available, else PCV20) [code = 65+ PNEUMOCOCCAL VACCINE (4 - PPSV23 if available, else PCV20)] Future Scheduled 2022-12-23 INFLUENZA VACCINE Method [facility] Test 06:27:39 [code = INFLUENZA VACCINE] Future Scheduled 2022-12-23 Screening for [facility] Test 06:27:39 malignant neoplasm of colon (procedure) [code = 456964198] Future Scheduled 2022-12-23 Screening for [facility] Test 06:27:39 malignant neoplasm of colon (procedure) [code = 367983493] Future Scheduled 2022-12-23 Screening for [facility] Test 06:27:39 malignant neoplasm of colon (procedure) [code = 656413745] Future Scheduled 2022-12-23 SHINGLES VACCINES (1 Met [facility] Test 06:27:39 of 2) [code = SHINGLES VACCINES (1 of 2)] Future Scheduled 2022-12-23 BREAST CANCER [facility] Test 06:27:39 SCREENING [code = BREAST CANCER SCREENING] Future Scheduled 2022-12-23 Screening for [facility] Test 06:27:39 malignant neoplasm of colon (procedure) [code = 429441389] Future Scheduled 2022-12-23 Screening for [facility] Test 06:27:39 malignant neoplasm of colon (procedure) [code = 239940372] Future Scheduled 2022-12-23 HEPATITIS B VACCINES Met [facility] Test 06:27:39 (1 of 3 - Risk 3-dose series) [code = HEPATITIS B VACCINES (1 of 3 - Risk 3-dose series)] Future Scheduled 2022-12-23 COVID-19 VACCINE (3 - Me [facility] Test 06:27:39 Pfizer series) [code = COVID-19 VACCINE (3 - Pfizer series)] Future Scheduled 2022-12-23 65+ PNEUMOCOCCAL [facility] Test 06:27:39 VACCINE (4 - PPSV23 if available, else PCV20) [code = 65+ PNEUMOCOCCAL VACCINE (4 - PPSV23 if available, else PCV20)] Future Scheduled 2022-12-23 INFLUENZA VACCINE Method [facility] Test 06:27:39 [code = INFLUENZA VACCINE] Future Scheduled 2022-12-23 Screening for [facility] Test 06:27:39 malignant neoplasm of colon (procedure) [code = 261439483] Future Scheduled 2022-12-23 Screening for [facility] Test 06:27:39 malignant neoplasm of colon (procedure) [code = 031887467] Future Scheduled 2022-12-23 Screening for [facility] Test 06:27:39 malignant neoplasm of colon (procedure) [code = 039078615] Future Scheduled 2022-12-23 SHINGLES VACCINES (1 Met [facility] Test 06:27:39 of 2) [code = SHINGLES VACCINES (1 of 2)] Future Scheduled 2022-12-23 BREAST CANCER [facility] Test 06:27:39 SCREENING [code = BREAST CANCER SCREENING] Future Scheduled 2022-12-23 Screening for [facility] Test 06:27:39 malignant neoplasm of colon (procedure) [code = 712695985] Future Scheduled 2022-12-23 Screening for [facility] Test 06:27:39 malignant neoplasm of colon (procedure) [code = 484659225] Future Scheduled 2022-12-23 HEPATITIS B VACCINES Met [facility] Test 06:27:39 (1 of 3 - Risk 3-dose series) [code = HEPATITIS B VACCINES (1 of 3 - Risk 3-dose series)] Future Scheduled 2022-12-23 COVID-19 VACCINE (3 - Me [facility] Test 06:27:39 Pfizer series) [code = COVID-19 VACCINE (3 - Pfizer series)] Future Scheduled 2022-12-23 65+ PNEUMOCOCCAL [facility] Test 06:27:39 VACCINE (4 - PPSV23 if available, else PCV20) [code = 65+ PNEUMOCOCCAL VACCINE (4 - PPSV23 if available, else PCV20)] Future Scheduled 2022-12-23 ZZZ INFLUENZA VACCINE [facility] Test 06:27:39 [code = ZZZ INFLUENZA VACCINE] Future Scheduled 2022-12-23 Screening for [facility] Test 06:27:39 malignant neoplasm of colon (procedure) [code = 810139140] Future Scheduled 2022-12-23 Screening for [facility] Test 06:27:39 malignant neoplasm of colon (procedure) [code = 583542254] Future Scheduled 2022-12-23 Screening for [facility] Test 06:27:39 malignant neoplasm of colon (procedure) [code = 139475667] Future Scheduled 2022-12-23 SHINGLES VACCINES (1 Met [facility] Test 06:27:39 of 2) [code = SHINGLES VACCINES (1 of 2)] Future Scheduled 2022-12-23 BREAST CANCER [facility] Test 06:27:39 SCREENING [code = BREAST CANCER SCREENING] Future Scheduled 2022-12-23 Screening for [facility] Test 06:27:39 malignant neoplasm of colon (procedure) [code = 600294049] Future Scheduled 2022-12-23 Screening for [facility] Test 06:27:39 malignant neoplasm of colon (procedure) [code = 801786755] Future Scheduled 2022-12-23 HEPATITIS B VACCINES Met [facility] Test 06:27:39 (1 of 3 - Risk 3-dose series) [code = HEPATITIS B VACCINES (1 of 3 - Risk 3-dose series)] Future Scheduled 2022-12-23 COVID-19 VACCINE (3 - [facility] Test 06:27:39 Pfizer series) [code = COVID-19 VACCINE (3 - Pfizer series)] Future Scheduled 2022-12-23 65+ PNEUMOCOCCAL [facility] Test 06:27:39 VACCINE (4 - PPSV23 if available, else PCV20) [code = 65+ PNEUMOCOCCAL VACCINE (4 - PPSV23 if available, else PCV20)] Future Scheduled 2022-12-23 ZZZ INFLUENZA VACCINE [facility] Test 06:27:39 [code = ZZZ INFLUENZA VACCINE] Future Scheduled 2022-12-13 Screening for [facility] Test 16:46:16 malignant neoplasm of colon (procedure) [code = 013267076] Future Scheduled 2022-12-13 Screening for [facility] Test 16:46:16 malignant neoplasm of colon (procedure) [code = 494907370] Future Scheduled 2022-12-13 Screening for [facility] Test 16:46:16 malignant neoplasm of colon (procedure) [code = 326071322] Future Scheduled 2022-12-13 SHINGLES VACCINES (1 Met [facility] Test 16:46:16 of 2) [code = SHINGLES VACCINES (1 of 2)] Future Scheduled 2022-12-13 BREAST CANCER [facility] Test 16:46:16 SCREENING [code = BREAST CANCER SCREENING] Future Scheduled 2022-12-13 Screening for [facility] Test 16:46:16 malignant neoplasm of colon (procedure) [code = 451643105] Future Scheduled 2022-12-13 Screening for [facility] Test 16:46:16 malignant neoplasm of colon (procedure) [code = 908278547] Future Scheduled 2022-12-13 HEPATITIS B VACCINES Met [facility] Test 16:46:16 (1 of 3 - Risk 3-dose series) [code = HEPATITIS B VACCINES (1 of 3 - Risk 3-dose series)] Future Scheduled 2022-12-13 COVID-19 VACCINE (3 - [facility] Test 16:46:16 Pfizer series) [code = COVID-19 VACCINE (3 - Pfizer series)] Future Scheduled 2022-12-13 65+ PNEUMOCOCCAL [facility] Test 16:46:16 VACCINE (4 - PPSV23 if available, else PCV20) [code = 65+ PNEUMOCOCCAL VACCINE (4 - PPSV23 if available, else PCV20)] Future Scheduled 2022-12-13 INFLUENZA VACCINE Method [facility] Test 16:46:16 [code = INFLUENZA VACCINE] Future Scheduled 2022-12-13 Screening for [facility] Test 16:46:16 malignant neoplasm of colon (procedure) [code = 634573487] Future Scheduled 2022-12-13 Screening for [facility] Test 16:46:16 malignant neoplasm of colon (procedure) [code = 830214005] Future Scheduled 2022-12-13 Screening for [facility] Test 16:46:16 malignant neoplasm of colon (procedure) [code = 407288854] Future Scheduled 2022-12-13 SHINGLES VACCINES (1 Met [facility] Test 16:46:16 of 2) [code = SHINGLES VACCINES (1 of 2)] Future Scheduled 2022-12-13 BREAST CANCER [facility] Test 16:46:16 SCREENING [code = BREAST CANCER SCREENING] Future Scheduled 2022-12-13 Screening for [facility] Test 16:46:16 malignant neoplasm of colon (procedure) [code = 406202772] Future Scheduled 2022-12-13 Screening for [facility] Test 16:46:16 malignant neoplasm of colon (procedure) [code = 164571582] Future Scheduled 2022-12-13 HEPATITIS B VACCINES Met [facility] Test 16:46:16 (1 of 3 - Risk 3-dose series) [code = HEPATITIS B VACCINES (1 of 3 - Risk 3-dose series)] Future Scheduled 2022-12-13 COVID-19 VACCINE (3 - Me [facility] Test 16:46:16 Pfizer series) [code = COVID-19 VACCINE (3 - Pfizer series)] Future Scheduled 2022-12-13 65+ PNEUMOCOCCAL [facility] Test 16:46:16 VACCINE (4 - PPSV23 if available, else PCV20) [code = 65+ PNEUMOCOCCAL VACCINE (4 - PPSV23 if available, else PCV20)] Future Scheduled 2022-12-13 INFLUENZA VACCINE Method [facility] Test 16:46:16 [code = INFLUENZA VACCINE] Future Scheduled 2022-12-13 Screening for [facility] Test 16:46:16 malignant neoplasm of colon (procedure) [code = 835266762] Future Scheduled 2022-12-13 Screening for [facility] Test 16:46:16 malignant neoplasm of colon (procedure) [code = 481560911] Future Scheduled 2022-12-13 Screening for [facility] Test 16:46:16 malignant neoplasm of colon (procedure) [code = 893271068] Future Scheduled 2022-12-13 SHINGLES VACCINES (1 Met [facility] Test 16:46:16 of 2) [code = SHINGLES VACCINES (1 of 2)] Future Scheduled 2022-12-13 BREAST CANCER [facility] Test 16:46:16 SCREENING [code = BREAST CANCER SCREENING] Future Scheduled 2022-12-13 Screening for [facility] Test 16:46:16 malignant neoplasm of colon (procedure) [code = 392163766] Future Scheduled 2022-12-13 Screening for [facility] Test 16:46:16 malignant neoplasm of colon (procedure) [code = 219932916] Future Scheduled 2022-12-13 HEPATITIS B VACCINES Met [facility] Test 16:46:16 (1 of 3 - Risk 3-dose series) [code = HEPATITIS B VACCINES (1 of 3 - Risk 3-dose series)] Future Scheduled 2022-12-13 COVID-19 VACCINE (3 - Me [facility] Test 16:46:16 Pfizer series) [code = COVID-19 VACCINE (3 - Pfizer series)] Future Scheduled 2022-12-13 65+ PNEUMOCOCCAL [facility] Test 16:46:16 VACCINE (4 - PPSV23 if available, else PCV20) [code = 65+ PNEUMOCOCCAL VACCINE (4 - PPSV23 if available, else PCV20)] Future Scheduled 2022-12-13 INFLUENZA VACCINE Method [facility] Test 16:46:16 [code = INFLUENZA VACCINE] Future Scheduled 2022-11-11 Screening for [facility] Test 09:27:47 malignant neoplasm of colon (procedure) [code = 829971827] Future Scheduled 2022-11-11 Screening for [facility] Test 09:27:47 malignant neoplasm of colon (procedure) [code = 701206207] Future Scheduled 2022-11-11 Screening for [facility] Test 09:27:47 malignant neoplasm of colon (procedure) [code = 086669848] Future Scheduled 2022-11-11 SHINGLES VACCINES (1 Met [facility] Test 09:27:47 of 2) [code = SHINGLES VACCINES (1 of 2)] Future Scheduled 2022-11-11 BREAST CANCER [facility] Test 09:27:47 SCREENING [code = BREAST CANCER SCREENING] Future Scheduled 2022-11-11 Screening for [facility] Test 09:27:47 malignant neoplasm of colon (procedure) [code = 929146036] Future Scheduled 2022-11-11 Screening for [facility] Test 09:27:47 malignant neoplasm of colon (procedure) [code = 064596585] Future Scheduled 2022-11-11 HEPATITIS B VACCINES Met [facility] Test 09:27:47 (1 of 3 - Risk 3-dose series) [code = HEPATITIS B VACCINES (1 of 3 - Risk 3-dose series)] Future Scheduled 2022-11-11 COVID-19 VACCINE (3 - [facility] Test 09:27:47 Pfizer series) [code = COVID-19 VACCINE (3 - Pfizer series)] Future Scheduled 2022-11-11 65+ PNEUMOCOCCAL [facility] Test 09:27:47 VACCINE (4 - PPSV23 if available, else PCV20) [code = 65+ PNEUMOCOCCAL VACCINE (4 - PPSV23 if available, else PCV20)] Future Scheduled 2022-11-11 INFLUENZA VACCINE Method [facility] Test 09:27:47 [code = INFLUENZA VACCINE] Future Scheduled 2022-11-11 Screening for [facility] Test 09:27:47 malignant neoplasm of colon (procedure) [code = 655512592] Future Scheduled 2022-11-11 Screening for [facility] Test 09:27:47 malignant neoplasm of colon (procedure) [code = 786681343] Future Scheduled 2022-11-11 Screening for [facility] Test 09:27:47 malignant neoplasm of colon (procedure) [code = 298903054] Future Scheduled 2022-11-11 SHINGLES VACCINES (1 Met [facility] Test 09:27:47 of 2) [code = SHINGLES VACCINES (1 of 2)] Future Scheduled 2022-11-11 BREAST CANCER [facility] Test 09:27:47 SCREENING [code = BREAST CANCER SCREENING] Future Scheduled 2022-11-11 Screening for [facility] Test 09:27:47 malignant neoplasm of colon (procedure) [code = 067596422] Future Scheduled 2022-11-11 Screening for [facility] Test 09:27:47 malignant neoplasm of colon (procedure) [code = 700153515] Future Scheduled 2022-11-11 HEPATITIS B VACCINES Met [facility] Test 09:27:47 (1 of 3 - Risk 3-dose series) [code = HEPATITIS B VACCINES (1 of 3 - Risk 3-dose series)] Future Scheduled 2022-11-11 COVID-19 VACCINE (3 - Me [facility] Test 09:27:47 Pfizer series) [code = COVID-19 VACCINE (3 - Pfizer series)] Future Scheduled 2022-11-11 65+ PNEUMOCOCCAL [facility] Test 09:27:47 VACCINE (4 - PPSV23 if available, else PCV20) [code = 65+ PNEUMOCOCCAL VACCINE (4 - PPSV23 if available, else PCV20)] Future Scheduled 2022-11-11 INFLUENZA VACCINE [facility] Test 09:27:47 [code = INFLUENZA VACCINE] Future Scheduled 2022-11-11 Screening for [facility] Test 09:27:47 malignant neoplasm of colon (procedure) [code = 618311699] Future Scheduled 2022-11-11 Screening for [facility] Test 09:27:47 malignant neoplasm of colon (procedure) [code = 718850128] Future Scheduled 2022-11-11 Screening for [facility] Test 09:27:47 malignant neoplasm of colon (procedure) [code = 716535270] Future Scheduled 2022-11-11 SHINGLES VACCINES (1 Met [facility] Test 09:27:47 of 2) [code = SHINGLES VACCINES (1 of 2)] Future Scheduled 2022-11-11 BREAST CANCER [facility] Test 09:27:47 SCREENING [code = BREAST CANCER SCREENING] Future Scheduled 2022-11-11 Screening for [facility] Test 09:27:47 malignant neoplasm of colon (procedure) [code = [id number]] Future Scheduled 2022-11-11 Screening for [facility] Test 09:27:47 malignant neoplasm of colon (procedure) [code = [id number]] Future Scheduled 2022-11-11 HEPATITIS B VACCINES Met [facility] Test 09:27:47 (1 of 3 - Risk 3-dose series) [code = HEPATITIS B VACCINES (1 of 3 - Risk 3-dose series)] Future Scheduled 2022-11-11 COVID-19 VACCINE (3 - Me [facility] Test 09:27:47 Pfizer series) [code = COVID-19 VACCINE (3 - Pfizer series)] Future Scheduled 2022-11-11 65[facility] VACCINE (4 - PPSV23 if available, else PCV20) [code = 65+ PNEUMOCOCCAL VACCINE (4 - PPSV23 if available, else PCV20)] Future Scheduled 2022-11-11 INFLUENZA VACCINE Method [facility] Test 09:27:47 [code = INFLUENZA VACCINE] Future Scheduled 2022-10-27 Screening for [facility] Test 22:40:19 malignant neoplasm of colon (procedure) [code = [id number]] Future Scheduled 2022-10-27 Screening for [facility] Test 22:40:19 malignant neoplasm of colon (procedure) [code = [id number]] Future Scheduled 2022-10-27 Screening for [facility] Test 22:40:19 malignant neoplasm of colon (procedure) [code = [id number]] Future Scheduled 2022-10-27 SHINGLES VACCINES (1 Met [facility] Test 22:40:19 of 2) [code = SHINGLES VACCINES (1 of 2)] Future Scheduled 2022-10-27 BREAST CANCER [facility] Test 22:40:19 SCREENING [code = BREAST CANCER SCREENING] Future Scheduled 2022-10-27 Screening for [facility] Test 22:40:19 malignant neoplasm of colon (procedure) [code = [id number]] Future Scheduled 2022-10-27 Screening for [facility] Test 22:40:19 malignant neoplasm of colon (procedure) [code = [id number]] Future Scheduled 2022-10-27 HEPATITIS B VACCINES Met [facility] Test 22:40:19 (1 of 3 - Risk 3-dose series) [code = HEPATITIS B VACCINES (1 of 3 - Risk 3-dose series)] Future Scheduled 2022-10-27 COVID-19 VACCINE (3 - Me [facility] Test 22:40:19 Pfizer series) [code = COVID-19 VACCINE (3 - Pfizer series)] Future Scheduled 2022-10-27 65+ PNEUMOCOCCAL [facility] Test 22:40:19 VACCINE (4 - PPSV23 if available, else PCV20) [code = 65+ PNEUMOCOCCAL VACCINE (4 - PPSV23 if available, else PCV20)] Future Scheduled 2022-10-27 INFLUENZA VACCINE Method [facility] Test 22:40:19 [code = INFLUENZA VACCINE] Future Scheduled 2022-10-27 Screening for [facility] Test 22:40:19 malignant neoplasm of colon (procedure) [code = [id number]] Future Scheduled 2022-10-27 Screening for [facility] Test 22:40:19 malignant neoplasm of colon (procedure) [code = [id number]] Future Scheduled 2022-10-27 Screening for [facility] Test 22:40:19 malignant neoplasm of colon (procedure) [code = [id number]] Future Scheduled 2022-10-27 SHINGLES VACCINES (1 Met [facility] Test 22:40:19 of 2) [code = SHINGLES VACCINES (1 of 2)] Future Scheduled 2022-10-27 BREAST CANCER [facility] Test 22:40:19 SCREENING [code = BREAST CANCER SCREENING] Future Scheduled 2022-10-27 Screening for [facility] Test 22:40:19 malignant neoplasm of colon (procedure) [code = [id number]] Future Scheduled 2022-10-27 Screening for [facility] Test 22:40:19 malignant neoplasm of colon (procedure) [code = [id number]] Future Scheduled 2022-10-27 HEPATITIS B VACCINES Met [facility] Test 22:40:19 (1 of 3 - Risk 3-dose series) [code = HEPATITIS B VACCINES (1 of 3 - Risk 3-dose series)] Future Scheduled 2022-10-27 COVID-19 VACCINE (3 - [facility] Test 22:40:19 Pfizer series) [code = COVID-19 VACCINE (3 - Pfizer series)] Future Scheduled 2022-10-27 65+ PNEUMOCOCCAL [facility] Test 22:40:19 VACCINE (4 - PPSV23 if available, else PCV20) [code = 65+ PNEUMOCOCCAL VACCINE (4 - PPSV23 if available, else PCV20)] Future Scheduled 2022-10-27 INFLUENZA VACCINE Method [facility] Test 22:40:19 [code = INFLUENZA VACCINE] Future Scheduled 2022-09-10 SHINGLES VACCINES (1 Met [facility] Test 15:06:53 of 2) [code = SHINGLES VACCINES (1 of 2)] Future Scheduled 2022-09-10 BREAST CANCER [facility] Test 15:06:53 SCREENING [code = BREAST CANCER SCREENING] Future Scheduled 2022-09-10 COLONOSCOPY SCREENING [facility] Test 15:06:53 [code = COLONOSCOPY SCREENING] Future Scheduled 2022-09-10 HEPATITIS B VACCINES Met [facility] Test 15:06:53 (1 of 3 - Risk 3-dose series) [code = HEPATITIS B VACCINES (1 of 3 - Risk 3-dose series)] Future Scheduled 2022-09-10 COVID-19 VACCINE (3 - [facility] Test 15:06:53 Booster for Pfizer series) [code = COVID-19 VACCINE (3 - Booster for Pfizer series)] Future Scheduled 2022-09-10 65[facility] VACCINE (4 - PPSV23 if available, else PCV20) [code = 65+ PNEUMOCOCCAL VACCINE (4 - PPSV23 if available, else PCV20)] Future Scheduled 2022-09-10 INFLUENZA VACCINE Method [facility] Test 15:06:53 [code = INFLUENZA VACCINE] Future Scheduled 2022-09-10 SHINGLES VACCINES (1 Met [facility] Test 15:06:53 of 2) [code = SHINGLES VACCINES (1 of 2)] Future Scheduled 2022-09-10 BREAST CANCER [facility] Test 15:06:53 SCREENING [code = BREAST CANCER SCREENING] Future Scheduled 2022-09-10 COLONOSCOPY SCREENING [facility] Test 15:06:53 [code = COLONOSCOPY SCREENING] Future Scheduled 2022-09-10 HEPATITIS B VACCINES Met [facility] Test 15:06:53 (1 of 3 - Risk 3-dose series) [code = HEPATITIS B VACCINES (1 of 3 - Risk 3-dose series)] Future Scheduled 2022-09-10 COVID-19 VACCINE (3 - Me [facility] Test 15:06:53 Booster for Pfizer series) [code = COVID-19 VACCINE (3 - Booster for Pfizer series)] Future Scheduled 2022-09-10 65[facility] VACCINE (4 - PPSV23 if available, else PCV20) [code = 65+ PNEUMOCOCCAL VACCINE (4 - PPSV23 if available, else PCV20)] Future Scheduled 2022-09-10 INFLUENZA VACCINE Method [facility] Test 15:06:53 [code = INFLUENZA VACCINE] Future Scheduled 2022-09-10 SHINGLES VACCINES (1 Met [facility] Test 15:06:53 of 2) [code = SHINGLES VACCINES (1 of 2)] Future Scheduled 2022-09-10 BREAST CANCER [facility] Test 15:06:53 SCREENING [code = BREAST CANCER SCREENING] Future Scheduled 2022-09-10 COLONOSCOPY SCREENING [facility] Test 15:06:53 [code = COLONOSCOPY SCREENING] Future Scheduled 2022-09-10 HEPATITIS B VACCINES Met [facility] Test 15:06:53 (1 of 3 - Risk 3-dose series) [code = HEPATITIS B VACCINES (1 of 3 - Risk 3-dose series)] Future Scheduled 2022-09-10 COVID-19 VACCINE (3 - Me [facility] Test 15:06:53 Booster for Pfizer series) [code = COVID-19 VACCINE (3 - Booster for Pfizer series)] Future Scheduled 2022-09-10 65+ PNEUMOCOCCAL [facility] Test 15:06:53 VACCINE (4 - PPSV23 if available, else PCV20) [code = 65+ PNEUMOCOCCAL VACCINE (4 - PPSV23 if available, else PCV20)] Future Scheduled 2022-09-10 INFLUENZA VACCINE Method [facility] Test 15:06:53 [code = INFLUENZA VACCINE] Future Scheduled 2022-09-10 SHINGLES VACCINES (1 Met [facility] Test 15:06:53 of 2) [code = SHINGLES VACCINES (1 of 2)] Future Scheduled 2022-09-10 BREAST CANCER [facility] Test 15:06:53 SCREENING [code = BREAST CANCER SCREENING] Future Scheduled 2022-09-10 COLONOSCOPY SCREENING [facility] Test 15:06:53 [code = COLONOSCOPY SCREENING] Future Scheduled 2022-09-10 HEPATITIS B VACCINES Met [facility] Test 15:06:53 (1 of 3 - Risk 3-dose series) [code = HEPATITIS B VACCINES (1 of 3 - Risk 3-dose series)] Future Scheduled 2022-09-10 COVID-19 VACCINE (3 - [facility] Test 15:06:53 Booster for Pfizer series) [code = COVID-19 VACCINE (3 - Booster for Pfizer series)] Future Scheduled 2022-09-10 65+ PNEUMOCOCCAL [facility] Test 15:06:53 VACCINE (4 - PPSV23 if available, else PCV20) [code = 65+ PNEUMOCOCCAL VACCINE (4 - PPSV23 if available, else PCV20)] Future Scheduled 2022-09-10 INFLUENZA VACCINE Method [facility] Test 15:06:53 [code = INFLUENZA VACCINE] Future Scheduled 2022-09-10 SHINGLES VACCINES (1 Met [facility] Test 15:06:53 of 2) [code = SHINGLES VACCINES (1 of 2)] Future Scheduled 2022-09-10 BREAST CANCER [facility] Test 15:06:53 SCREENING [code = BREAST CANCER SCREENING] Future Scheduled 2022-09-10 COLONOSCOPY SCREENING [facility] Test 15:06:53 [code = COLONOSCOPY SCREENING] Future Scheduled 2022-09-10 HEPATITIS B VACCINES Met [facility] Test 15:06:53 (1 of 3 - Risk 3-dose series) [code = HEPATITIS B VACCINES (1 of 3 - Risk 3-dose series)] Future Scheduled 2022-09-10 COVID-19 VACCINE (3 - Me [facility] Test 15:06:53 Booster for Pfizer series) [code = COVID-19 VACCINE (3 - Booster for Pfizer series)] Future Scheduled 2022-09-10 65[facility] VACCINE (4 - PPSV23 if available, else PCV20) [code = 65+ PNEUMOCOCCAL VACCINE (4 - PPSV23 if available, else PCV20)] Future Scheduled 2022-09-10 INFLUENZA VACCINE Method [facility] Test 15:06:53 [code = INFLUENZA VACCINE] Future Scheduled 2022-09-10 SHINGLES VACCINES (1 Met [facility] Test 15:06:53 of 2) [code = SHINGLES VACCINES (1 of 2)] Future Scheduled 2022-09-10 BREAST CANCER [facility] Test 15:06:53 SCREENING [code = BREAST CANCER SCREENING] Future Scheduled 2022-09-10 COLONOSCOPY SCREENING [facility] Test 15:06:53 [code = COLONOSCOPY SCREENING] Future Scheduled 2022-09-10 HEPATITIS B VACCINES Met [facility] Test 15:06:53 (1 of 3 - Risk 3-dose series) [code = HEPATITIS B VACCINES (1 of 3 - Risk 3-dose series)] Future Scheduled 2022-09-10 COVID-19 VACCINE (3 - Me [facility] Test 15:06:53 Booster for Pfizer series) [code = COVID-19 VACCINE (3 - Booster for Pfizer series)] Future Scheduled 2022-09-10 65[facility] VACCINE (4 - PPSV23 if available, else PCV20) [code = 65+ PNEUMOCOCCAL VACCINE (4 - PPSV23 if available, else PCV20)] Future Scheduled 2022-09-10 INFLUENZA VACCINE Method [facility] Test 15:06:53 [code = INFLUENZA VACCINE] Future Scheduled 2022-09-10 SHINGLES VACCINES (1 Met [facility] Test 15:06:53 of 2) [code = SHINGLES VACCINES (1 of 2)] Future Scheduled 2022-09-10 BREAST CANCER [facility] Test 15:06:53 SCREENING [code = BREAST CANCER SCREENING] Future Scheduled 2022-09-10 COLONOSCOPY SCREENING [facility] Test 15:06:53 [code = COLONOSCOPY SCREENING] Future Scheduled 2022-09-10 HEPATITIS B VACCINES Met [facility] Test 15:06:53 (1 of 3 - Risk 3-dose series) [code = HEPATITIS B VACCINES (1 of 3 - Risk 3-dose series)] Future Scheduled 2022-09-10 COVID-19 VACCINE (3 - Me [facility] Test 15:06:53 Booster for Pfizer series) [code = COVID-19 VACCINE (3 - Booster for Pfizer series)] Future Scheduled 2022-09-10 65+ PNEUMOCOCCAL [facility] Test 15:06:53 VACCINE (4 - PPSV23 if available, else PCV20) [code = 65+ PNEUMOCOCCAL VACCINE (4 - PPSV23 if available, else PCV20)] Future Scheduled 2022-09-10 INFLUENZA VACCINE Method [facility] Test 15:06:53 [code = INFLUENZA VACCINE] Future Scheduled 2022-09-10 SHINGLES VACCINES (1 Met [facility] Test 15:06:53 of 2) [code = SHINGLES VACCINES (1 of 2)] Future Scheduled 2022-09-10 BREAST CANCER [facility] Test 15:06:53 SCREENING [code = BREAST CANCER SCREENING] Future Scheduled 2022-09-10 COLONOSCOPY SCREENING [facility] Test 15:06:53 [code = COLONOSCOPY SCREENING] Future Scheduled 2022-09-10 HEPATITIS B VACCINES Met [facility] Test 15:06:53 (1 of 3 - Risk 3-dose series) [code = HEPATITIS B VACCINES (1 of 3 - Risk 3-dose series)] Future Scheduled 2022-09-10 COVID-19 VACCINE (3 - [facility] Test 15:06:53 Booster for Pfizer series) [code = COVID-19 VACCINE (3 - Booster for Pfizer series)] Future Scheduled 2022-09-10 65[facility] VACCINE (4 - PPSV23 if available, else PCV20) [code = 65+ PNEUMOCOCCAL VACCINE (4 - PPSV23 if available, else PCV20)] Future Scheduled 2022-09-10 INFLUENZA VACCINE Method [facility] Test 15:06:53 [code = INFLUENZA VACCINE] Future Scheduled 2022-08-26 SHINGLES VACCINES (1 Met [facility] Test 14:43:48 of 2) [code = SHINGLES VACCINES (1 of 2)] Future Scheduled 2022-08-26 BREAST CANCER [facility] Test 14:43:48 SCREENING [code = BREAST CANCER SCREENING] Future Scheduled 2022-08-26 COLONOSCOPY SCREENING [facility] Test 14:43:48 [code = COLONOSCOPY SCREENING] Future Scheduled 2022-08-26 HEPATITIS B VACCINES Met [facility] Test 14:43:48 (1 of 3 - Risk 3-dose series) [code = HEPATITIS B VACCINES (1 of 3 - Risk 3-dose series)] Future Scheduled 2022-08-26 COVID-19 VACCINE (3 - Me [facility] Test 14:43:48 Booster for Pfizer series) [code = COVID-19 VACCINE (3 - Booster for Pfizer series)] Future Scheduled 2022-08-26 65[facility] VACCINE (4 - PPSV23 if available, else PCV20) [code = 65+ PNEUMOCOCCAL VACCINE (4 - PPSV23 if available, else PCV20)] Future Scheduled 2022-08-26 INFLUENZA VACCINE Method [facility] Test 14:43:48 [code = INFLUENZA VACCINE] Future Scheduled 2022-08-07 SHINGLES VACCINES (1 Met [facility] Test 23:30:11 of 2) [code = SHINGLES VACCINES (1 of 2)] Future Scheduled 2022-08-07 BREAST CANCER [facility] Test 23:30:11 SCREENING [code = BREAST CANCER SCREENING] Future Scheduled 2022-08-07 COLONOSCOPY SCREENING [facility] Test 23:30:11 [code = COLONOSCOPY SCREENING] Future Scheduled 2022-08-07 HEPATITIS B VACCINES Met [facility] Test 23:30:11 (1 of 3 - Risk 3-dose series) [code = HEPATITIS B VACCINES (1 of 3 - Risk 3-dose series)] Future Scheduled 2022-08-07 COVID-19 VACCINE (3 - Me [facility] Test 23:30:11 Booster for Pfizer series) [code = COVID-19 VACCINE (3 - Booster for Pfizer series)] Future Scheduled 2022-08-07 65[facility] VACCINE (4 - PPSV23 if available, else PCV20) [code = 65+ PNEUMOCOCCAL VACCINE (4 - PPSV23 if available, else PCV20)] Future Scheduled 2022-08-07 INFLUENZA VACCINE Method [facility] Test 23:30:11 [code = INFLUENZA VACCINE] Future Scheduled 2022-08-07 SHINGLES VACCINES (1 Met [facility] Test 23:30:11 of 2) [code = SHINGLES VACCINES (1 of 2)] Future Scheduled 2022-08-07 BREAST CANCER [facility] Test 23:30:11 SCREENING [code = BREAST CANCER SCREENING] Future Scheduled 2022-08-07 COLONOSCOPY SCREENING [facility] Test 23:30:11 [code = COLONOSCOPY SCREENING] Future Scheduled 2022-08-07 HEPATITIS B VACCINES Met [facility] Test 23:30:11 (1 of 3 - Risk 3-dose series) [code = HEPATITIS B VACCINES (1 of 3 - Risk 3-dose series)] Future Scheduled 2022-08-07 COVID-19 VACCINE (3 - [facility] Test 23:30:11 Booster for Pfizer series) [code = COVID-19 VACCINE (3 - Booster for Pfizer series)] Future Scheduled 2022-08-07 65+ PNEUMOCOCCAL [facility] Test 23:30:11 VACCINE (4 - PPSV23 if available, else PCV20) [code = 65+ PNEUMOCOCCAL VACCINE (4 - PPSV23 if available, else PCV20)] Future Scheduled 2022-08-07 INFLUENZA VACCINE Method [facility] Test 23:30:11 [code = INFLUENZA VACCINE] Future Scheduled 2022-08-06 SHINGLES VACCINES (1 Met [facility] Test 15:48:02 of 2) [code = SHINGLES VACCINES (1 of 2)] Future Scheduled 2022-08-06 BREAST CANCER [facility] Test 15:48:02 SCREENING [code = BREAST CANCER SCREENING] Future Scheduled 2022-08-06 COLONOSCOPY SCREENING [facility] Test 15:48:02 [code = COLONOSCOPY SCREENING] Future Scheduled 2022-08-06 HEPATITIS B VACCINES Met [facility] Test 15:48:02 (1 of 3 - Risk 3-dose series) [code = HEPATITIS B VACCINES (1 of 3 - Risk 3-dose series)] Future Scheduled 2022-08-06 COVID-19 VACCINE (3 - [facility] Test 15:48:02 Booster for Pfizer series) [code = COVID-19 VACCINE (3 - Booster for Pfizer series)] Future Scheduled 2022-08-06 65[facility] VACCINE (4 - PPSV23 if available, else PCV20) [code = 65+ PNEUMOCOCCAL VACCINE (4 - PPSV23 if available, else PCV20)] Future Scheduled 2022-08-06 INFLUENZA VACCINE Method [facility] Test 15:48:02 [code = INFLUENZA VACCINE] Future Scheduled 2022-06-11 SHINGLES VACCINES (1 Met [facility] Test 16:10:12 of 2) [code = SHINGLES VACCINES (1 of 2)] Future Scheduled 2022-06-11 BREAST CANCER [facility] Test 16:10:12 SCREENING [code = BREAST CANCER SCREENING] Future Scheduled 2022-06-11 COLONOSCOPY SCREENING [facility] Test 16:10:12 [code = COLONOSCOPY SCREENING] Future Scheduled 2022-06-11 HEPATITIS B VACCINES Met [facility] Test 16:10:12 (1 of 3 - Risk 3-dose series) [code = HEPATITIS B VACCINES (1 of 3 - Risk 3-dose series)] Future Scheduled 2022-06-11 COVID-19 VACCINE (3 - [facility] Test 16:10:12 Booster for Pfizer series) [code = COVID-19 VACCINE (3 - Booster for Pfizer series)] Future Scheduled 2022-06-11 65[facility]:10[facility]12 VACCINE (4 - PPSV23 if available, else PCV20) [code = 65+ PNEUMOCOCCAL VACCINE (4 - PPSV23 if available, else PCV20)] Future Scheduled 2022-06-11 INFLUENZA VACCINE Method [facility] Test 16:10:12 [code = INFLUENZA VACCINE] Future Scheduled 2022-06-11 SHINGLES VACCINES (1 Met [facility] Test 16:10:12 of 2) [code = SHINGLES VACCINES (1 of 2)] Future Scheduled 2022-06-11 BREAST CANCER [facility] Test 16:10:12 SCREENING [code = BREAST CANCER SCREENING] Future Scheduled 2022-06-11 COLONOSCOPY SCREENING [facility] Test 16:10:12 [code = COLONOSCOPY SCREENING] Future Scheduled 2022-06-11 HEPATITIS B VACCINES Met [facility] Test 16:10:12 (1 of 3 - Risk 3-dose series) [code = HEPATITIS B VACCINES (1 of 3 - Risk 3-dose series)] Future Scheduled 2022-06-11 COVID-19 VACCINE (3 - [facility] Test 16:10:12 Booster for Pfizer series) [code = COVID-19 VACCINE (3 - Booster for Pfizer series)] Future Scheduled 2022-06-11 65[facility] VACCINE (4 - PPSV23 if available, else PCV20) [code = 65+ PNEUMOCOCCAL VACCINE (4 - PPSV23 if available, else PCV20)] Future Scheduled 2022-06-11 INFLUENZA VACCINE [facility] Test 16:10:12 [code = INFLUENZA VACCINE] Future Scheduled 2022-06-11 SHINGLES VACCINES (1 Met [facility] Test 16:10:12 of 2) [code = SHINGLES VACCINES (1 of 2)] Future Scheduled 2022-06-11 BREAST CANCER [facility] Test 16:10:12 SCREENING [code = BREAST CANCER SCREENING] Future Scheduled 2022-06-11 COLONOSCOPY SCREENING [facility] Test 16:10:12 [code = COLONOSCOPY SCREENING] Future Scheduled 2022-06-11 HEPATITIS B VACCINES Met [facility] Test 16:10:12 (1 of 3 - Risk 3-dose series) [code = HEPATITIS B VACCINES (1 of 3 - Risk 3-dose series)] Future Scheduled 2022-06-11 COVID-19 VACCINE (3 - Me [facility] Test 16:10:12 Booster for Pfizer series) [code = COVID-19 VACCINE (3 - Booster for Pfizer series)] Future Scheduled 2022-06-11 65[facility]:10[facility] VACCINE (4 - PPSV23 if available, else PCV20) [code = 65+ PNEUMOCOCCAL VACCINE (4 - PPSV23 if available, else PCV20)] Future Scheduled 2022-06-11 INFLUENZA VACCINE [facility] Test 16:10:12 [code = INFLUENZA VACCINE] Future Scheduled 2022-06-11 SHINGLES VACCINES (1 Met [facility] Test 16:10:12 of 2) [code = SHINGLES VACCINES (1 of 2)] Future Scheduled 2022-06-11 BREAST CANCER [facility] Test 16:10:12 SCREENING [code = BREAST CANCER SCREENING] Future Scheduled 2022-06-11 COLONOSCOPY SCREENING [facility] Test 16:10:12 [code = COLONOSCOPY SCREENING] Future Scheduled 2022-06-11 HEPATITIS B VACCINES Met [facility] Test 16:10:12 (1 of 3 - Risk 3-dose series) [code = HEPATITIS B VACCINES (1 of 3 - Risk 3-dose series)] Future Scheduled 2022-06-11 COVID-19 VACCINE (3 - Me [facility] Test 16:10:12 Booster for Pfizer series) [code = COVID-19 VACCINE (3 - Booster for Pfizer series)] Future Scheduled 2022-06-11 65[facility] VACCINE (4 - PPSV23 if available, else PCV20) [code = 65+ PNEUMOCOCCAL VACCINE (4 - PPSV23 if available, else PCV20)] Future Scheduled 2022-06-11 INFLUENZA VACCINE [facility] Test 16:10:12 [code = INFLUENZA VACCINE] Future Scheduled 2022-06-11 SHINGLES VACCINES (1 Met [facility] Test 16:10:12 of 2) [code = SHINGLES VACCINES (1 of 2)] Future Scheduled 2022-06-11 BREAST CANCER [facility] Test 16:10:12 SCREENING [code = BREAST CANCER SCREENING] Future Scheduled 2022-06-11 COLONOSCOPY SCREENING [facility] Test 16:10:12 [code = COLONOSCOPY SCREENING] Future Scheduled 2022-06-11 HEPATITIS B VACCINES Met [facility] Test 16:10:12 (1 of 3 - Risk 3-dose series) [code = HEPATITIS B VACCINES (1 of 3 - Risk 3-dose series)] Future Scheduled 2022-06-11 COVID-19 VACCINE (3 - [facility] Test 16:10:12 Booster for Pfizer series) [code = COVID-19 VACCINE (3 - Booster for Pfizer series)] Future Scheduled 2022-06-11 65[facility]:10[facility]12 VACCINE (4 - PPSV23 if available, else PCV20) [code = 65+ PNEUMOCOCCAL VACCINE (4 - PPSV23 if available, else PCV20)] Future Scheduled 2022-06-11 INFLUENZA VACCINE Method [facility] Test 16:10:12 [code = INFLUENZA VACCINE] Future Scheduled 2022-06-11 SHINGLES VACCINES (1 Met [facility] Test 16:10:12 of 2) [code = SHINGLES VACCINES (1 of 2)] Future Scheduled 2022-06-11 BREAST CANCER [facility] Test 16:10:12 SCREENING [code = BREAST CANCER SCREENING] Future Scheduled 2022-06-11 COLONOSCOPY SCREENING Me [facility] Test 16:10:12 [code = COLONOSCOPY SCREENING] Future Scheduled 2022-06-11 HEPATITIS B VACCINES Met [facility] Test 16:10:12 (1 of 3 - Risk 3-dose series) [code = HEPATITIS B VACCINES (1 of 3 - Risk 3-dose series)] Future Scheduled 2022-06-11 COVID-19 VACCINE (3 - Me [facility] Test 16:10:12 Booster for Pfizer series) [code = COVID-19 VACCINE (3 - Booster for Pfizer series)] Future Scheduled 2022-06-11 65+ PNEUMOCOCCAL Method[facility] Test 16:10:12 VACCINE (4 - PPSV23 if available, else PCV20) [code = 65+ PNEUMOCOCCAL VACCINE (4 - PPSV23 if available, else PCV20)] Future Scheduled 2022-06-11 INFLUENZA VACCINE Method [facility] Test 16:10:12 [code = INFLUENZA VACCINE] Future Scheduled 2022-06-11 SHINGLES VACCINES (1 Met [facility] Test 16:10:12 of 2) [code = SHINGLES VACCINES (1 of 2)] Future Scheduled 2022-06-11 BREAST CANCER [facility] Test 16:10:12 SCREENING [code = BREAST CANCER SCREENING] Future Scheduled 2022-06-11 COLONOSCOPY SCREENING [facility] Test 16:10:12 [code = COLONOSCOPY SCREENING] Future Scheduled 2022-06-11 HEPATITIS B VACCINES Met [facility] Test 16:10:12 (1 of 3 - Risk 3-dose series) [code = HEPATITIS B VACCINES (1 of 3 - Risk 3-dose series)] Future Scheduled 2022-06-11 COVID-19 VACCINE (3 - Me [facility] Test 16:10:12 Booster for Pfizer series) [...] Future Scheduled 2022-06-11 BREAST CANCER [facility] Test 16:10:12 SCREENING [code = BREAST CANCER SCREENING] Future Scheduled 2022-06-11 COLONOSCOPY SCREENING [facility] Test 16:10:12 [code = COLONOSCOPY SCREENING] Future Scheduled 2022-06-11 HEPATITIS B VACCINES Met [facility] Test 16:10:12 (1 of 3 - Risk 3-dose series) [code = HEPATITIS B VACCINES (1 of 3 - Risk 3-dose series)] Future Scheduled 2022-06-11 COVID-19 VACCINE (3 - [facility] Test 16:10:12 Booster for Pfizer series) [code = COVID-19 VACCINE (3 - Booster for Pfizer series)] Future Scheduled 2022-06-11 65+ [facility]:10[facility]12 VACCINE (4 - PPSV23 if available, else PCV20) [code = 65+ PNEUMOCOCCAL VACCINE (4 - PPSV23 if available, else PCV20)] Future Scheduled 2022-06-11 INFLUENZA VACCINE Method [facility] Test 16:10:12 [code = INFLUENZA VACCINE] Future Scheduled 2022-06-11 SHINGLES VACCINES (1 Met [facility] Test 16:10:12 of 2) [code = SHINGLES VACCINES (1 of 2)] Future Scheduled 2022-06-11 BREAST CANCER [facility] Test 16:10:12 SCREENING [code = BREAST CANCER SCREENING] Future Scheduled 2022-06-11 COLONOSCOPY SCREENING [facility] Test 16:10:12 [code = COLONOSCOPY SCREENING] Future Scheduled 2022-06-11 HEPATITIS B VACCINES Met [facility] Test 16:10:12 (1 of 3 - Risk 3-dose series) [code = HEPATITIS B VACCINES (1 of 3 - Risk 3-dose series)] Future Scheduled 2022-06-11 COVID-19 VACCINE (3 - [facility] Test 16:10:12 Booster for Pfizer series) [code = COVID-19 VACCINE (3 - Booster for Pfizer series)] Future Scheduled 2022-06-11 65+ [facility] 16:10:12 VACCINE (4 - PPSV23 if available, else PCV20) [code = 65+ PNEUMOCOCCAL VACCINE (4 - PPSV23 if available, else PCV20)] Future Scheduled 2022-06-11 INFLUENZA VACCINE Method [facility] Test 16:10:12 [code = INFLUENZA VACCINE] Future Scheduled 2022-05-10 SHINGLES VACCINES (1 Met [facility] Test 10:21:35 of 2) [code = SHINGLES VACCINES (1 of 2)] Future Scheduled 2022-05-10 BREAST CANCER [facility] Test 10:21:35 SCREENING [code = BREAST CANCER SCREENING] Future Scheduled 2022-05-10 COLONOSCOPY SCREENING [facility] Test 10:21:35 [code = COLONOSCOPY SCREENING] Future Scheduled 2022-05-10 HEPATITIS B VACCINES Met [facility] Test 10:21:35 (1 of 3 - Risk 3-dose series) [code = HEPATITIS B VACCINES (1 of 3 - Risk 3-dose series)] Future Scheduled 2022-05-10 COVID-19 VACCINE (3 - Me [facility] Test 10:21:35 Booster for Pfizer series) [code = COVID-19 VACCINE (3 - Booster for Pfizer series)] Future Scheduled 2022-05-10 65+ [facility] 10:21:35 VACCINE (4 - PPSV23 if available, else PCV20) [code = 65+ PNEUMOCOCCAL VACCINE (4 - PPSV23 if available, else PCV20)] Future Scheduled 2022-05-10 INFLUENZA VACCINE Method [facility] Test 10:21:35 [code = INFLUENZA VACCINE] Future Scheduled 2022-05-10 SHINGLES VACCINES (1 Met [facility] Test 10:21:35 of 2) [code = SHINGLES VACCINES (1 of 2)] Future Scheduled 2022-05-10 BREAST CANCER [facility] Test 10:21:35 SCREENING [code = BREAST CANCER SCREENING] Future Scheduled 2022-05-10 COLONOSCOPY SCREENING [facility] Test 10:21:35 [code = COLONOSCOPY SCREENING] Future Scheduled 2022-05-10 HEPATITIS B VACCINES Met [facility] Test 10:21:35 (1 of 3 - Risk 3-dose series) [code = HEPATITIS B VACCINES (1 of 3 - Risk 3-dose series)] Future Scheduled 2022-05-10 COVID-19 VACCINE (3 - Me [facility] Test 10:21:35 Booster for Pfizer series) [code = COVID-19 VACCINE (3 - Booster for Pfizer series)] Future Scheduled 2022-05-10 65+ PNEUMOCOCCAL [facility] Test 10:21:35 VACCINE (4 - PPSV23 if available, else PCV20) [code = 65+ PNEUMOCOCCAL VACCINE (4 - PPSV23 if available, else PCV20)] Future Scheduled 2022-05-10 INFLUENZA VACCINE Method [facility] Test 10:21:35 [code = INFLUENZA VACCINE] Future Scheduled 2022-05-06 SHINGLES VACCINES (1 Met [facility] Test 14:03:13 of 2) [code = SHINGLES VACCINES (1 of 2)] Future Scheduled 2022-05-06 BREAST CANCER [facility] Test 14:03:13 SCREENING [code = BREAST CANCER SCREENING] Future Scheduled 2022-05-06 COLONOSCOPY SCREENING [facility] Test 14:03:13 [code = COLONOSCOPY SCREENING] Future Scheduled 2022-05-06 HEPATITIS B VACCINES Met [facility] Test 14:03:13 (1 of 3 - Risk 3-dose series) [code = HEPATITIS B VACCINES (1 of 3 - Risk 3-dose series)] Future Scheduled 2022-05-06 COVID-19 VACCINE (3 - [facility] Test 14:03:13 Booster for Pfizer series) [code = COVID-19 VACCINE (3 - Booster for Pfizer series)] Future Scheduled 2022-05-06 65+ PNEUMOCOCCAL [facility] Test 14:03:13 VACCINE (4 - PPSV23 if available, else PCV20) [code = 65+ PNEUMOCOCCAL VACCINE (4 - PPSV23 if available, else PCV20)] Future Scheduled 2022-05-06 INFLUENZA VACCINE Method [facility] Test 14:03:13 [code = INFLUENZA VACCINE] Future Scheduled 2022-04-30 SHINGLES VACCINES (1 Met [facility] Test 01:07:32 of 2) [code = SHINGLES VACCINES (1 of 2)] Future Scheduled 2022-04-30 BREAST CANCER [facility] Test 01:07:32 SCREENING [code = BREAST CANCER SCREENING] Future Scheduled 2022-04-30 COLONOSCOPY SCREENING [facility] Test 01:07:32 [code = COLONOSCOPY SCREENING] Future Scheduled 2022-04-30 HEPATITIS B VACCINES Met [facility] Test 01:07:32 (1 of 3 - Risk 3-dose series) [code = HEPATITIS B VACCINES (1 of 3 - Risk 3-dose series)] Future Scheduled 2022-04-30 COVID-19 VACCINE (3 - Me [facility] Test 01:07:32 Booster for Pfizer series) [code = COVID-19 VACCINE (3 - Booster for Pfizer series)] Future Scheduled 2022-04-30 65[facility] VACCINE (4 - PPSV23 if available, else PCV20) [code = 65+ PNEUMOCOCCAL VACCINE (4 - PPSV23 if available, else PCV20)] Future Scheduled 2022-04-30 INFLUENZA VACCINE Method [facility] Test 01:07:32 [code = INFLUENZA VACCINE] Future Scheduled 2022-04-30 SHINGLES VACCINES (1 Met [facility] Test 01:07:32 of 2) [code = SHINGLES VACCINES (1 of 2)] Future Scheduled 2022-04-30 BREAST CANCER [facility] Test 01:07:32 SCREENING [code = BREAST CANCER SCREENING] Future Scheduled 2022-04-30 COLONOSCOPY SCREENING [facility] Test 01:07:32 [code = COLONOSCOPY SCREENING] Future Scheduled 2022-04-30 HEPATITIS B VACCINES Met [facility] Test 01:07:32 (1 of 3 - Risk 3-dose series) [code = HEPATITIS B VACCINES (1 of 3 - Risk 3-dose series)] Future Scheduled 2022-04-30 COVID-19 VACCINE (3 - [facility] Test 01:07:32 Booster for Pfizer series) [code = COVID-19 VACCINE (3 - Booster for Pfizer series)] Future Scheduled 2022-04-30 65+ PNEUMOCOCCAL [facility] Test 01:07:32 VACCINE (4 - PPSV23 if available, else PCV20) [code = 65+ PNEUMOCOCCAL VACCINE (4 - PPSV23 if available, else PCV20)] Future Scheduled 2022-04-30 INFLUENZA VACCINE Method [facility] Test 01:07:32 [code = INFLUENZA VACCINE] Future Scheduled 2022-04-30 SHINGLES VACCINES (1 Met [facility] Test 01:07:32 of 2) [code = SHINGLES VACCINES (1 of 2)] Future Scheduled 2022-04-30 BREAST CANCER [facility] Test 01:07:32 SCREENING [code = BREAST CANCER SCREENING] Future Scheduled 2022-04-30 COLONOSCOPY SCREENING [facility] Test 01:07:32 [code = COLONOSCOPY SCREENING] Future Scheduled 2022-04-30 HEPATITIS B VACCINES Met [facility] Test 01:07:32 (1 of 3 - Risk 3-dose series) [code = HEPATITIS B VACCINES (1 of 3 - Risk 3-dose series)] Future Scheduled 2022-04-30 COVID-19 VACCINE (3 - [facility] Test 01:07:32 Booster for Pfizer series) [code = COVID-19 VACCINE (3 - Booster for Pfizer series)] Future Scheduled 2022-04-30 65+ PNEUMOCOCCAL [facility] Test 01:07:32 VACCINE (4 - PPSV23 if available, else PCV20) [code = 65+ PNEUMOCOCCAL VACCINE (4 - PPSV23 if available, else PCV20)] Future Scheduled 2022-04-30 INFLUENZA VACCINE Method [facility] Test 01:07:32 [code = INFLUENZA VACCINE] Future Scheduled 2022-04-25 SHINGLES VACCINES (1 Met [facility] Test 01:45:02 of 2) [code = SHINGLES VACCINES (1 of 2)] Future Scheduled 2022-04-25 BREAST CANCER [facility] Test 01:45:02 SCREENING [code = BREAST CANCER SCREENING] Future Scheduled 2022-04-25 COLONOSCOPY SCREENING [facility] Test 01:45:02 [code = COLONOSCOPY SCREENING] Future Scheduled 2022-04-25 HEPATITIS B VACCINES Met [facility] Test 01:45:02 (1 of 3 - Risk 3-dose series) [code = HEPATITIS B VACCINES (1 of 3 - Risk 3-dose series)] Future Scheduled 2022-04-25 COVID-19 VACCINE (3 - [facility] Test 01:45:02 Booster for Pfizer series) [code = COVID-19 VACCINE (3 - Booster for Pfizer series)] Future Scheduled 2022-04-25 65[facility] VACCINE (4 - PPSV23 if available, else PCV20) [code = 65+ PNEUMOCOCCAL VACCINE (4 - PPSV23 if available, else PCV20)] Future Scheduled 2022-04-25 INFLUENZA VACCINE Method [facility] Test 01:45:02 [code = INFLUENZA VACCINE] Future Scheduled 2022-03-25 SHINGLES VACCINES (1 Met [facility] Test 14:48:42 of 2) [code = SHINGLES VACCINES (1 of 2)] Future Scheduled 2022-03-25 BREAST CANCER [facility] Test 14:48:42 SCREENING [code = BREAST CANCER SCREENING] Future Scheduled 2022-03-25 COLONOSCOPY SCREENING [facility] Test 14:48:42 [code = COLONOSCOPY SCREENING] Future Scheduled 2022-03-25 HEPATITIS B VACCINES Met [facility] Test 14:48:42 (1 of 3 - Risk 3-dose series) [code = HEPATITIS B VACCINES (1 of 3 - Risk 3-dose series)] Future Scheduled 2022-03-25 COVID-19 VACCINE (3 - Me [facility] Test 14:48:42 Booster for Pfizer series) [code = COVID-19 VACCINE (3 - Booster for Pfizer series)] Future Scheduled 2022-03-25 65[facility] VACCINE (4 - PPSV23 if available, else PCV20) [code = 65+ PNEUMOCOCCAL VACCINE (4 - PPSV23 if available, else PCV20)] Future Scheduled 2022-03-25 INFLUENZA VACCINE Method [facility] Test 14:48:42 [code = INFLUENZA VACCINE] Future Scheduled 2022-03-25 SHINGLES VACCINES (1 Met [facility] Test 14:48:42 of 2) [code = SHINGLES VACCINES (1 of 2)] Future Scheduled 2022-03-25 BREAST CANCER [facility] Test 14:48:42 SCREENING [code = BREAST CANCER SCREENING] Future Scheduled 2022-03-25 COLONOSCOPY SCREENING [facility] Test 14:48:42 [code = COLONOSCOPY SCREENING] Future Scheduled 2022-03-25 HEPATITIS B VACCINES Met [facility] Test 14:48:42 (1 of 3 - Risk 3-dose series) [code = HEPATITIS B VACCINES (1 of 3 - Risk 3-dose series)] Future Scheduled 2022-03-25 COVID-19 VACCINE (3 - [facility] Test 14:48:42 Booster for Pfizer series) [code = COVID-19 VACCINE (3 - Booster for Pfizer series)] Future Scheduled 2022-03-25 65+ [facility]CCAL [facility] 14:48:42 VACCINE (4 - PPSV23 if available, else PCV20) [code = 65+ PNEUMOCOCCAL VACCINE (4 - PPSV23 if available, else PCV20)] Future Scheduled 2022-03-25 INFLUENZA VACCINE Method [facility] Test 14:48:42 [code = INFLUENZA VACCINE] Future Scheduled 2022-03-25 SHINGLES VACCINES (1 Met [facility] Test 14:48:42 of 2) [code = SHINGLES VACCINES (1 of 2)] Future Scheduled 2022-03-25 BREAST CANCER [facility] Test 14:48:42 SCREENING [code = BREAST CANCER SCREENING] Future Scheduled 2022-03-25 COLONOSCOPY SCREENING [facility] Test 14:48:42 [code = COLONOSCOPY SCREENING] Future Scheduled 2022-03-25 HEPATITIS B VACCINES Met [facility] Test 14:48:42 (1 of 3 - Risk 3-dose series) [code = HEPATITIS B VACCINES (1 of 3 - Risk 3-dose series)] Future Scheduled 2022-03-25 COVID-19 VACCINE (3 - [facility] Test 14:48:42 Booster for Pfizer series) [code = COVID-19 VACCINE (3 - Booster for Pfizer series)] Future Scheduled 2022-03-25 65+ [facility] 14:48:[facility] VACCINE (4 - PPSV23 if available, else PCV20) [code = 65+ PNEUMOCOCCAL VACCINE (4 - PPSV23 if available, else PCV20)] Future Scheduled 2022-03-25 INFLUENZA VACCINE Method [facility] Test 14:48:42 [code = INFLUENZA VACCINE] Future Scheduled 2022-03-25 SHINGLES VACCINES (1 Met [facility] Test 14:48:42 of 2) [code = SHINGLES VACCINES (1 of 2)] Future Scheduled 2022-03-25 BREAST CANCER [facility] Test 14:48:42 SCREENING [code = BREAST CANCER SCREENING] Future Scheduled 2022-03-25 COLONOSCOPY SCREENING [facility] Test 14:48:42 [code = COLONOSCOPY SCREENING] Future Scheduled 2022-03-25 HEPATITIS B VACCINES Met [facility] Test 14:48:42 (1 of 3 - Risk 3-dose series) [code = HEPATITIS B VACCINES (1 of 3 - Risk 3-dose series)] Future Scheduled 2022-03-25 COVID-19 VACCINE (3 - [facility] Test 14:48:42 Booster for Pfizer series) [code = COVID-19 VACCINE (3 - Booster for Pfizer series)] Future Scheduled 2022-03-25 65[facility] 14:48:42 VACCINE (4 - PPSV23 if available, else PCV20) [code = 65+ PNEUMOCOCCAL VACCINE (4 - PPSV23 if available, else PCV20)] Future Scheduled 2022-03-25 INFLUENZA VACCINE Method [facility] Test 14:48:42 [code = INFLUENZA VACCINE] Future Scheduled 2022-03-25 SHINGLES VACCINES (1 Met [facility] Test 14:48:42 of 2) [code = SHINGLES VACCINES (1 of 2)] Future Scheduled 2022-03-25 BREAST CANCER [facility] Test 14:48:42 SCREENING [code = BREAST CANCER SCREENING] Future Scheduled 2022-03-25 COLONOSCOPY SCREENING [facility] Test 14:48:42 [code = COLONOSCOPY SCREENING] Future Scheduled 2022-03-25 HEPATITIS B VACCINES Met [facility] Test 14:48:42 (1 of 3 - Risk 3-dose series) [code = HEPATITIS B VACCINES (1 of 3 - Risk 3-dose series)] Future Scheduled 2022-03-25 COVID-19 VACCINE (3 - [facility] Test 14:48:42 Booster for Pfizer series) [...] Future Scheduled 2022-03-25 SHINGLES VACCINES (1 Met [facility] Test 14:48:42 of 2) [code = SHINGLES VACCINES (1 of 2)] Future Scheduled 2022-03-25 BREAST CANCER [facility] Test 14:48:42 SCREENING [code = BREAST CANCER SCREENING] Future Scheduled 2022-03-25 COLONOSCOPY SCREENING [facility] Test 14:48:42 [code = COLONOSCOPY SCREENING] Future Scheduled 2022-03-25 HEPATITIS B VACCINES Met [facility] Test 14:48:42 (1 of 3 - Risk 3-dose series) [code = HEPATITIS B VACCINES (1 of 3 - Risk 3-dose series)] Future Scheduled 2022-03-25 COVID-19 VACCINE (3 - [facility] Test 14:48:42 Booster for Pfizer series) [code = COVID-19 VACCINE (3 - Booster for Pfizer series)] Future Scheduled 2022-03-25 65[facility]:48[facility] VACCINE (4 - PPSV23 if available, else PCV20) [code = 65+ PNEUMOCOCCAL VACCINE (4 - PPSV23 if available, else PCV20)] Future Scheduled 2022-03-25 INFLUENZA VACCINE Method [facility] Test 14:48:42 [code = INFLUENZA VACCINE] Future Scheduled 2022-03-25 SHINGLES VACCINES (1 Met [facility] Test 14:48:42 of 2) [code = SHINGLES VACCINES (1 of 2)] Future Scheduled 2022-03-25 BREAST CANCER [facility] Test 14:48:42 SCREENING [code = BREAST CANCER SCREENING] Future Scheduled 2022-03-25 COLONOSCOPY SCREENING [facility] Test 14:48:42 [code = COLONOSCOPY SCREENING] Future Scheduled 2022-03-25 HEPATITIS B VACCINES Met [facility] Test 14:48:42 (1 of 3 - Risk 3-dose series) [code = HEPATITIS B VACCINES (1 of 3 - Risk 3-dose series)] Future Scheduled 2022-03-25 COVID-19 VACCINE (3 - Me [facility] Test 14:48:42 Booster for Pfizer series) [code = COVID-19 VACCINE (3 - Booster for Pfizer series)] Future Scheduled 2022-03-25 65+ PNEUMOCOCCAL [facility] Test 14:48:42 VACCINE (4 - PPSV23 if available, else PCV20) [code = 65+ PNEUMOCOCCAL VACCINE (4 - PPSV23 if available, else PCV20)] Future Scheduled 2022-03-25 INFLUENZA VACCINE Method [facility] Test 14:48:42 [code = INFLUENZA VACCINE] Future Scheduled 2022-03-25 SHINGLES VACCINES (1 Met [facility] Test 14:48:42 of 2) [code = SHINGLES VACCINES (1 of 2)] Future Scheduled 2022-03-25 BREAST CANCER [facility] Test 14:48:42 SCREENING [code = BREAST CANCER SCREENING] Future Scheduled 2022-03-25 COLONOSCOPY SCREENING [facility] Test 14:48:42 [code = COLONOSCOPY SCREENING] Future Scheduled 2022-03-25 HEPATITIS B VACCINES Met [facility] Test 14:48:42 (1 of 3 - Risk 3-dose series) [code = HEPATITIS B VACCINES (1 of 3 - Risk 3-dose series)] Future Scheduled 2022-03-25 COVID-19 VACCINE (3 - [facility] Test 14:48:42 Booster for Pfizer series) [code = COVID-19 VACCINE (3 - Booster for Pfizer series)] Future Scheduled 2022-03-25 65+ [facility] 14:48:42 VACCINE (4 - PPSV23 if available, else PCV20) [code = 65+ PNEUMOCOCCAL VACCINE (4 - PPSV23 if available, else PCV20)] Future Scheduled 2022-03-25 INFLUENZA VACCINE Method [facility] Test 14:48:42 [code = INFLUENZA VACCINE] Future Scheduled 2022-03-25 SHINGLES VACCINES (1 Met [facility] Test 14:48:42 of 2) [code = SHINGLES VACCINES (1 of 2)] Future Scheduled 2022-03-25 BREAST CANCER [facility] Test 14:48:42 SCREENING [code = BREAST CANCER SCREENING] Future Scheduled 2022-03-25 COLONOSCOPY SCREENING [facility] Test 14:48:42 [code = COLONOSCOPY SCREENING] Future Scheduled 2022-03-25 HEPATITIS B VACCINES Met [facility] Test 14:48:42 (1 of 3 - Risk 3-dose series) [code = HEPATITIS B VACCINES (1 of 3 - Risk 3-dose series)] Future Scheduled 2022-03-25 COVID-19 VACCINE (3 - [facility] Test 14:48:42 Booster for Pfizer series) [code = COVID-19 VACCINE (3 - Booster for Pfizer series)] Future Scheduled 2022-03-25 65+ [facility] 14:48:42 VACCINE (4 - PPSV23 if available, else PCV20) [code = 65+ PNEUMOCOCCAL VACCINE (4 - PPSV23 if available, else PCV20)] Future Scheduled 2022-03-25 INFLUENZA VACCINE Method [facility] Test 14:48:42 [code = INFLUENZA VACCINE] Future Scheduled 2022-03-04 SHINGLES VACCINES (1 Met [facility] Test 14:03:57 of 2) [code = SHINGLES VACCINES (1 of 2)] Future Scheduled 2022-03-04 BREAST CANCER [facility] Test 14:03:57 SCREENING [code = BREAST CANCER SCREENING] Future Scheduled 2022-03-04 COLONOSCOPY SCREENING [facility] Test 14:03:57 [code = COLONOSCOPY SCREENING] Future Scheduled 2022-03-04 HEPATITIS B VACCINES Met [facility] Test 14:03:57 (1 of 3 - Risk 3-dose series) [code = HEPATITIS B VACCINES (1 of 3 - Risk 3-dose series)] Future Scheduled 2022-03-04 COVID-19 VACCINE (3 - Me [facility] Test 14:03:57 Booster for Pfizer series) [code = COVID-19 VACCINE (3 - Booster for Pfizer series)] Future Scheduled 2022-03-04 65[facility]:03:[facility] VACCINE (4 - PPSV23 if available, else PCV20) [code = 65+ PNEUMOCOCCAL VACCINE (4 - PPSV23 if available, else PCV20)] Future Scheduled 2022-03-04 INFLUENZA VACCINE [facility] Test 14:03:57 [code = INFLUENZA VACCINE] Future Scheduled 2022-03-04 SHINGLES VACCINES (1 Met [facility] Test 14:03:57 of 2) [code = SHINGLES VACCINES (1 of 2)] Future Scheduled 2022-03-04 BREAST CANCER [facility] Test 14:03:57 SCREENING [code = BREAST CANCER SCREENING] Future Scheduled 2022-03-04 COLONOSCOPY SCREENING [facility] Test 14:03:57 [code = COLONOSCOPY SCREENING] Future Scheduled 2022-03-04 HEPATITIS B VACCINES Met [facility] Test 14:03:57 (1 of 3 - Risk 3-dose series) [code = HEPATITIS B VACCINES (1 of 3 - Risk 3-dose series)] Future Scheduled 2022-03-04 COVID-19 VACCINE (3 - [facility] Test 14:03:57 Booster for Pfizer series) [code = COVID-19 VACCINE (3 - Booster for Pfizer series)] Future Scheduled 2022-03-04 65+ [facility]57 VACCINE (4 - PPSV23 if available, else PCV20) [code = 65+ PNEUMOCOCCAL VACCINE (4 - PPSV23 if available, else PCV20)] Future Scheduled 2022-03-04 INFLUENZA VACCINE Method [facility] Test 14:03:57 [code = INFLUENZA VACCINE] Future Scheduled 2022-03-04 SHINGLES VACCINES (1 [facility] Test 14:03:57 of 2) [code = SHINGLES VACCINES (1 of 2)] Future Scheduled 2022-03-04 BREAST CANCER [facility] Test 14:03:57 SCREENING [code = BREAST CANCER SCREENING] Future Scheduled 2022-03-04 COLONOSCOPY SCREENING [facility] Test 14:03:57 [code = COLONOSCOPY SCREENING] Future Scheduled 2022-03-04 HEPATITIS B VACCINES Met [facility] Test 14:03:57 (1 of 3 - Risk 3-dose series) [code = HEPATITIS B VACCINES (1 of 3 - Risk 3-dose series)] Future Scheduled 2022-03-04 COVID-19 VACCINE (3 - [facility] Test 14:03:57 Booster for Pfizer series) [code = COVID-19 VACCINE (3 - Booster for Pfizer series)] Future Scheduled 2022-03-04 65+ PNEUMOCOCCAL [facility] Test 14:03:57 VACCINE (4 - PPSV23 if available, else PCV20) [code = 65+ PNEUMOCOCCAL VACCINE (4 - PPSV23 if available, else PCV20)] Future Scheduled 2022-03-04 INFLUENZA VACCINE Method [facility] Test 14:03:57 [code = INFLUENZA VACCINE] Future Scheduled 2022-03-04 SHINGLES VACCINES (1 Met [facility] Test 14:03:57 of 2) [code = SHINGLES VACCINES (1 of 2)] Future Scheduled 2022-03-04 BREAST CANCER [facility] Test 14:03:57 SCREENING [code = BREAST CANCER SCREENING] Future Scheduled 2022-03-04 COLONOSCOPY SCREENING [facility] Test 14:03:57 [code = COLONOSCOPY SCREENING] Future Scheduled 2022-03-04 HEPATITIS B VACCINES Met [facility] Test 14:03:57 (1 of 3 - Risk 3-dose series) [code = HEPATITIS B VACCINES (1 of 3 - Risk 3-dose series)] Future Scheduled 2022-03-04 COVID-19 VACCINE (3 - [facility] Test 14:03:57 Booster for [...] Future Scheduled 2022-02-11 SHINGLES VACCINES (1 Met [facility] Test 13:39:12 of 2) [code = SHINGLES VACCINES (1 of 2)] Future Scheduled 2022-02-11 BREAST CANCER [facility] Test 13:39:12 SCREENING [code = BREAST CANCER SCREENING] Future Scheduled 2022-02-11 COLONOSCOPY SCREENING [facility] Test 13:39:12 [code = COLONOSCOPY SCREENING] Future Scheduled 2022-02-11 HEPATITIS B VACCINES Met [facility] Test 13:39:12 (1 of 3 - Risk 3-dose series) [code = HEPATITIS B VACCINES (1 of 3 - Risk 3-dose series)] Future Scheduled 2022-02-11 COVID-19 VACCINE (3 - [facility] Test 13:39:12 Booster for Pfizer series) [code = COVID-19 VACCINE (3 - Booster for Pfizer series)] Future Scheduled 2022-02-11 65+ PNEUMOCOCCAL [facility] Test 13:39:12 VACCINE (4 - PPSV23 or PCV20) [code = 65+ PNEUMOCOCCAL VACCINE (4 - PPSV23 or PCV20)] Future Scheduled 2022-02-11 INFLUENZA VACCINE Method [facility] Test 13:39:12 [code = INFLUENZA VACCINE] Future Scheduled 2022-01-29 SHINGLES VACCINES (1 Met [facility] Test 14:07:20 of 2) [code = SHINGLES VACCINES (1 of 2)] Future Scheduled 2022-01-29 BREAST CANCER [facility] Test 14:07:20 SCREENING [code = BREAST CANCER SCREENING] Future Scheduled 2022-01-29 COLONOSCOPY SCREENING [facility] Test 14:07:20 [code = COLONOSCOPY SCREENING] Future Scheduled 2022-01-29 HEPATITIS B VACCINES Met [facility] Test 14:07:20 (1 of 3 - Risk 3-dose series) [code = HEPATITIS B VACCINES (1 of 3 - Risk 3-dose series)] Future Scheduled 2022-01-29 COVID-19 VACCINE (3 - [facility] Test 14:07:20 Booster for Pfizer series) [code = COVID-19 VACCINE (3 - Booster for Pfizer series)] Future Scheduled 2022-01-29 65+ PNEUMOCOCCAL [facility] Test 14:07:20 VACCINE (4 - PPSV23 or PCV20) [code = 65+ PNEUMOCOCCAL VACCINE (4 - PPSV23 or PCV20)] Future Scheduled 2022-01-29 INFLUENZA VACCINE Method [facility] Test 14:07:20 [code = INFLUENZA VACCINE] Future Scheduled 2022-01-29 SHINGLES VACCINES (1 Met [facility] Test 14:07:20 of 2) [code = SHINGLES VACCINES (1 of 2)] Future Scheduled 2022-01-29 BREAST CANCER [facility] Test 14:07:20 SCREENING [code = BREAST CANCER SCREENING] Future Scheduled 2022-01-29 COLONOSCOPY SCREENING [facility] Test 14:07:20 [code = COLONOSCOPY SCREENING] Future Scheduled 2022-01-29 HEPATITIS B VACCINES Met [facility] Test 14:07:20 (1 of 3 - Risk 3-dose series) [code = HEPATITIS B VACCINES (1 of 3 - Risk 3-dose series)] Future Scheduled 2022-01-29 COVID-19 VACCINE (3 - [facility] Test 14:07:20 Booster for Pfizer series) [code = COVID-19 VACCINE (3 - Booster for Pfizer series)] Future Scheduled 2022-01-29 65+ PNEUMOCOCCAL [facility] Test 14:07:20 VACCINE (4 - PPSV23 or PCV20) [code = 65+ PNEUMOCOCCAL VACCINE (4 - PPSV23 or PCV20)] Future Scheduled 2022-01-29 INFLUENZA VACCINE Method [facility] Test 14:07:20 [code = INFLUENZA VACCINE] Future Scheduled 2022-01-29 SHINGLES VACCINES (1 Met [facility] Test 14:07:20 of 2) [code = SHINGLES VACCINES (1 of 2)] Future Scheduled 2022-01-29 BREAST CANCER [facility] Test 14:07:20 SCREENING [code = BREAST CANCER SCREENING] Future Scheduled 2022-01-29 COLONOSCOPY SCREENING [facility] Test 14:07:20 [code = COLONOSCOPY SCREENING] Future Scheduled 2022-01-29 HEPATITIS B VACCINES Met [facility] Test 14:07:20 (1 of 3 - Risk 3-dose series) [code = HEPATITIS B VACCINES (1 of 3 - Risk 3-dose series)] Future Scheduled 2022-01-29 COVID-19 VACCINE (3 - [facility] Test 14:07:20 Booster for Pfizer series) [code = COVID-19 VACCINE (3 - Booster for Pfizer series)] Future Scheduled 2022-01-29 65+ PNEUMOCOCCAL [facility] Test 14:07:20 VACCINE (4 - PPSV23 or PCV20) [code = 65+ PNEUMOCOCCAL VACCINE (4 - PPSV23 or PCV20)] Future Scheduled 2022-01-29 INFLUENZA VACCINE Method [facility] Test 14:07:20 [code = INFLUENZA VACCINE] Future Scheduled 2022-01-29 SHINGLES VACCINES (1 Met [facility] Test 14:07:20 of 2) [code = SHINGLES VACCINES (1 of 2)] Future Scheduled 2022-01-29 BREAST CANCER [facility] Test 14:07:20 SCREENING [code = BREAST CANCER SCREENING] Future Scheduled 2022-01-29 COLONOSCOPY SCREENING [facility] Test 14:07:20 [code = COLONOSCOPY SCREENING] Future Scheduled 2022-01-29 HEPATITIS B VACCINES Met [facility] Test 14:07:20 (1 of 3 - Risk 3-dose series) [code = HEPATITIS B VACCINES (1 of 3 - Risk 3-dose series)] Future Scheduled 2022-01-29 COVID-19 VACCINE (3 - [facility] Test 14:07:20 Booster for Pfizer series) [code = COVID-19 VACCINE (3 - Booster for Pfizer series)] Future Scheduled 2022-01-29 65+ PNEUMOCOCCAL [facility] Test 14:07:20 VACCINE (4 - PPSV23 or PCV20) [code = 65+ PNEUMOCOCCAL VACCINE (4 - PPSV23 or PCV20)] Future Scheduled 2022-01-29 INFLUENZA VACCINE Method [facility] Test 14:07:20 [code = INFLUENZA VACCINE] Future Scheduled 2022-01-20 SHINGLES VACCINES (1 Met [facility] Test 06:12:34 of 2) [code = SHINGLES VACCINES (1 of 2)] Future Scheduled 2022-01-20 Screening for [facility] Test 06:12:34 malignant neoplasm of cervix (procedure) [code = 686173674] Future Scheduled 2022-01-20 BREAST CANCER [facility] Test 06:12:34 SCREENING [code = BREAST CANCER SCREENING] Future Scheduled 2022-01-20 COLONOSCOPY SCREENING [facility] Test 06:12:34 [code = COLONOSCOPY SCREENING] Future Scheduled 2022-01-20 HEPATITIS B VACCINES Met [facility] Test 06:12:34 (1 of 3 - Risk 3-dose series) [code = HEPATITIS B VACCINES (1 of 3 - Risk 3-dose series)] Future Scheduled 2022-01-20 COVID-19 VACCINE (3 - [facility] Test 06:12:34 Booster for Pfizer series) [code = COVID-19 VACCINE (3 - Booster for Pfizer series)] Future Scheduled 2022-01-20 65+ PNEUMOCOCCAL [facility] Test 06:12:34 VACCINE (4 - PPSV23 or PCV20) [code = 65+ PNEUMOCOCCAL VACCINE (4 - PPSV23 or PCV20)] Future Scheduled 2022-01-20 INFLUENZA VACCINE Method [facility] Test 06:12:34 [code = INFLUENZA VACCINE] Future Scheduled 2022-01-16 SHINGLES VACCINES (1 Met [facility] Test 12:09:25 of 2) [code = SHINGLES VACCINES (1 of 2)] Future Scheduled 2022-01-16 Screening for [facility] Test 12:09:25 malignant neoplasm of cervix (procedure) [code = [id number]] Future Scheduled 2022-01-16 BREAST CANCER [facility] Test 12:09:25 SCREENING [code = BREAST CANCER SCREENING] Future Scheduled 2022-01-16 COLONOSCOPY SCREENING [facility] Test 12:09:25 [code = COLONOSCOPY SCREENING] Future Scheduled 2022-01-16 HEPATITIS B VACCINES Met [facility] Test 12:09:25 (1 of 3 - Risk 3-dose series) [code = HEPATITIS B VACCINES (1 of 3 - Risk 3-dose series)] Future Scheduled 2022-01-16 COVID-19 VACCINE (3 - [facility] Test 12:09:25 Booster for Pfizer series) [code = COVID-19 VACCINE (3 - Booster for Pfizer series)] Future Scheduled 2022-01-16 65+ PNEUMOCOCCAL [facility] Test 12:09:25 VACCINE (4 - PPSV23 or PCV20) [code = 65+ PNEUMOCOCCAL VACCINE (4 - PPSV23 or PCV20)] Future Scheduled 2022-01-16 INFLUENZA VACCINE Method [facility] Test 12:09:25 [code = INFLUENZA VACCINE] Future Scheduled 2022-01-14 SHINGLES VACCINES (1 Met [facility] Test 04:11:46 of 2) [code = SHINGLES VACCINES (1 of 2)] Future Scheduled 2022-01-14 Screening for [facility] Test 04:11:46 malignant neoplasm of cervix (procedure) [code = [id number]] Future Scheduled 2022-01-14 BREAST CANCER [facility] Test 04:11:46 SCREENING [code = BREAST CANCER SCREENING] Future Scheduled 2022-01-14 COLONOSCOPY SCREENING [facility] Test 04:11:46 [code = COLONOSCOPY SCREENING] Future Scheduled 2022-01-14 HEPATITIS B VACCINES Met [facility] Test 04:11:46 (1 of 3 - Risk 3-dose series) [code = HEPATITIS B VACCINES (1 of 3 - Risk 3-dose series)] Future Scheduled 2022-01-14 COVID-19 VACCINE (3 - [facility] Test 04:11:46 Booster for Pfizer series) [code = COVID-19 VACCINE (3 - Booster for Pfizer series)] Future Scheduled 2022-01-14 65[facility] VACCINE (4 - PPSV23 or PCV20) [code = 65+ PNEUMOCOCCAL VACCINE (4 - PPSV23 or PCV20)] Future Scheduled 2022-01-14 INFLUENZA VACCINE Method [facility] Test 04:11:46 [code = INFLUENZA VACCINE] Future Scheduled 2021-08-26 Screening for [facility] Test 13:02:23 malignant neoplasm of cervix (procedure) [code = [id number]] Future Scheduled 2021-08-26 BREAST CANCER [facility] Test 13:02:23 SCREENING [code = BREAST CANCER SCREENING] Future Scheduled 2021-08-26 COLONOSCOPY SCREENING [facility] Test 13:02:23 [code = COLONOSCOPY SCREENING] Future Scheduled 2021-08-26 Screening for [facility] Test 13:02:23 malignant neoplasm of lung (procedure) [code = [id number]] Future Scheduled 2021-08-26 SHINGLES VACCINES (#1) [facility] Test 13:02:23 [code = SHINGLES VACCINES (#1)] Future Scheduled 2021-08-26 COVID-19 VACCINE (3 - [facility] Test 13:02:23 Pfizer risk 4-dose series) [...] Clinicians Facility Department ID 2022-02-18 Outpatient [facility] [id number] [place] 14:30:[address] [place] [address] 2021-07-14 Outpatient SADIKOVIC, [facility] [id number] [place] 09:33:51 [facility] 2021-06-02 Outpatient HEMATPOUR, [facility] [id number] [place] 13:58:59 [facility] 2021-04-28 Outpatient HEMATPOUR, [facility] [id number] [place] 11:21:22 [facility] 2021-03-20 Emergency [facility] [id number] Univers 16:07:40 ity [facility] 2020-12-12 Outpatient HEMATPOUR, [facility] [id number] [place] 08:16:46 [facility] 2020-10-31 Outpatient HEMATPOUR, [facility] [id number] [place] 09:44:50 [facility] 2020-09-30 Outpatient HEMATPOUR, [facility] [id number] [place] 13:16:03 [facility]alt h 2023-03-22 2023-03-22 Outpatient [id number] PRIV PRIV [id number] [facility] 00:00:00 00:00:00 diyala_S [id number] Medic al 2023-03-18 2023-03-18 Transition ADELAIDE Tripp 1.2.840.114 [id number] Univers 00:00:00 00:00:00 of Care Neelima SYED 350.1.13.10 it [place] [id number] [address] 2023-03-16 2023-03-17 Emergency Go Russell 1.2.840 .114 [id number] Univers 12:00:00 19:16:00 Lm Abbott 350.1.13.10 ity of [facility] 4.2.7.2.686 Yomi as [id number] [facility] [address] 2023-03-16 2023-03-16 Television News Anchor [facility] 1.2.840.114 [id number] Univers 11:15:00 11:30:00 Visit Santiago Cardenas [facility] 350.1.13.10 ity of [facility] 4.2.7.2.[place] [id number] [facility] [address] 2023-03-16 2023-03-16 Outpatient [facility] [id number] Univers 11:15:00 11:15:00 [facility] 2023-03-16 2023-03-16 Outpatient [facility] [id number] Univers 09:30:00 09:30:00 [facility] 2023-03-16 2023-03-16 Orders Doctor FERMIN 1.2.840.114 [id number] Univers 00:00:00 00:00:00 Only Unassigned, JACKELINE 350.1.13.10 ity of [place] [facility] 4.2.7.2.686 [place] as [phone] [facility] [address] 2023-03-11 2023-03-11 Outpatient [facility] [id number] Univers 08:00:00 08:00:00 [facility] 2023-02-07 2023-02-07 Outpatient [facility] [id number] Univers 09:00:00 09:00:00 [facility] 2023-01-27 2023-01-27 Emergency X Bill COLES [facility] ERT [id number] Univers 10:47:00 [facility]23-[facility]-27 2023-01-27 Emergency Bill Coles [facility] 1.2.840.114 [id number] Univers 10:47:00 18:59:00 Kiersten BULLOCK 350.1.13.10 i ty of [facility] 4.[place].2.[place] [id number] [address] 2023-01-17 2023-01-17 [facility] 1.2.168.281 [id number] Univers 00:00:00 00:00:00 [facility] 350.1.13.10 i [place] [id number] [address] 2022-11-26 2022-11-26 Outpatient R [facility] [id number] Univers 08:30:00 08:30:00 [facility] 2022-11-15 2022-11-15 Outpatient R [facility] [id number] Univers 08:30:00 08:30:00 [facility] 2022-11-02 2022-11-02 Outpatient R [facility] [id number] Univers 08:30:00 08:30:00 [facility] 2022-10-27 2022-10-27 Telephone [facility] 1.2.840.114 [id number] Univers 00:00:00 00:00:00 [facility] 350.1.13.10 i [place] [id number] [address] 2022-10-06 2022-10-06 Outpatient R [facility] [id number] Univers 09:30:00 09:30:00 [facility] 2022-09-26 2022-09-26 [facility] 1.2.493.630 [id number] Univers 00:00:00 00:00:00 [facility] 350.1.13.10 i [place] [id number] [address] 2022-09-03 2022-09-03 Outpatient R [facility] [id number] Univers 11:00:00 11:00:00 [facility] 2022-08-24 2022-08-24 Refill [facility], 1.2.840.9 [id number] Univers 00:00:00 00:00:00 Santiago 41164.1.1 ity of 3.104.2.7 [place] .3.064790 Medica l .8 Branch 2022-05-20 2022-05-20 Telephone [facility] 1.2.840.114 [id number] Univers 00:00:00 00:00:00 Santiago Rodriguez [facility] 350.1.13.10 i ty [place] [id number] [address] 2022-05-10 2022-05-10 Emergency X [facility] ERT [id number] Univers 10:30:00 16:31:00 HOME ity [facility] 2022-05-10 2022-05-10 Emergency [place], TRAUMA 1.2.840.114 [id number] Univers 10:30:00 16:31:00 Home [facility] 350.1.13.10 [place] [id number] [facility] [address] [place] 2022-05-10 2022-05-10 Telephone [facility] 1.2.840.114 [id number] Univers 00:00:00 00:00:00 [facility] 350.1.13.10 i [place] [id number] [address] 2022-05-08 2022-05-08 Emergency X [facility] ERT [id number] Univers 16:18:00 18:42:00 THERESA ity [facility] 2022-05-08 2022-05-08 Emergency [facility] 1.2.840.114 [id number] Univers 16:18:00 18:42:00 Theresa BULLOCK 350.1.13.10 it[place] [id number] [address] 2022-05-07 2022-05-07 Telephone [facility] 1.2.840.114 [id number] Univers 00:00:00 00:00:00 [facility] 350.1.13.10 i ty of CLIN[facility] 4.2.7.2.686 [facility] [id number] [address] 2022-05-06 2022-05-06 Emergency X EMMIE [facility] ERT [id number] Univers 14:13:00 18:19:00 ANETTE charlie [facility] 2022-05-06 2022-05-06 Emergency [facility] 1.2.545.373 [id number] Univers 14:13:00 18:19:00 Anette CHAMBERSJEREMY 350.1.13.10 ity of [facility] 4.2.7.2.686 [facility] [id number] [address] 2022-05-06 2022-05-06 Telephone JOSÉ ANTONIO Cardenas 1.2.840.114 [id number] Univers 00:00:00 00:00:00 Santiago [facility] 350.1.13.10 i ty of [facility] 4.2.7.2.[place] [id number] [address] 2022-04-22 2022-04-22 Emergency [facility] [id number] Univers 13:55:00 17:00:00 PAULETTE [facility] 2022-04-22 2022-04-22 Emergency [facility] 1.2.361.881 [id number] Univers 13:55:00 17:00:00 Paulette BULLOCK 350.1.13.10 i ty of [facility] 4.2.7.2.686 [facility] [id number] [address] 2022-04-07 2022-04-07 Outpatient R ADRIAN, [facility] [id number] Univers 20:40:00 20:40:00 ATTENDING ity [facility] 2022-04-07 2022-04-07 Telephone [place], 1.2.840.6 [id number] Univers 00:00:00 00:00:00 Robbi Hairston 28410.1.1 i ty of 3.104.2.7 [place] .3.110379 Medica l .8 Branch 2022-03-05 2022-03-05 Television News Anchor Santiago Cardenas 1.2.840.1 [id number] Univers 13:45:00 14:00:00 Visit [facility] 69607.1.1 ity of 3.104.2.7 [place] .3.459124 Medica l .[address] [place] 2022-03-05 2022-03-05 Office [facility], [facility] 1.2.412.601 [id number] Univers 13:00:00 13:30:00 Visit Santiago [facility] 350.1.13.10 i ty of CLINICS 4.2.7.2.[place] [id number] [facility] porfirio [address] [place] 2022-03-05 2022-03-05 Outpatient R [facility] [id number] Univers 13:00:00 13:00:00 [facility] 2022-02-26 2022-02-26 Outpatient R [facility] [id number] Univers 08:30:00 08:30:00 [facility] 2022-02-26 2022-02-26 Outpatient R [facility] [id number] Univers 08:30:00 08:30:00 [facility] 2022-02-17 2022-02-17 Transition Stevo, 1.2.840.0 [id number] Univers 00:00:00 00:00:00 of Care Isaias Arredondo 62464.1.1 it y of 3.104.2.7 [place] .3.975479 Medica l .[address] [place] 2022-02-10 2022-02-16 Inpatient X [facility] [id number] Univers 22:59:00 19:27:00 [facility]22-[facility]-10 2022-02-16 Hospital Reilly Means 1.2.840.1 [id number] Univers 22:59:00 19:27:00 Encounter Ofe Shields 98633.1.1 ity of [place].2.7 [place] .3.758849 Medica l .[address] [place] 2022-02-11 2022-02-11 Telephone [place], 1.2.840.0 [id number] Univers 00:00:00 00:00:00 Santiago 43873.1.1 ity of 3.104.2.7 [place] .3.162465 Medica l .8 Branch 2022-02-10 2022-02-10 Travel 1.2.840.1 1.2.224.555 [id number] Univers 00:00:00 00:00:00 18497.1.1 350.1.13.10 ity of 3.104.2.7 4[place].3.698 [place] .3.892818 084.8 Medica l .8 Branch 2022-01-30 2022-01-30 Telephone [place], 1.2.840.5 [id number] Univers 00:00:00 00:00:00 Santiago 79978.1.1 ity of 3.104.2.7 [place] .3.526718 Medica l .8 Branch 2022-01-06 2022-01-06 Orders Doctor FERMIN 1.2.840.114 [id number] Univers 00:00:00 00:00:00 Only Unassigned, JACKELINE 350.1.13.10 ity of [place] [facility] 4.2.7.2.686 Yomi as [id number] [facility] [address] 2021-12-25 2021-12-25 Orders Doctor FERMIN 1.2.840.114 [id number] Univers 00:00:00 00:00:00 Only Unassigned, JACKELINE 350.1.13.10 ity of [place] [facility] 4.2.7.2.686 Y[place] as [id number] [facility] [address] 2021-12-12 2021-12-13 Emergency X Bill COLES [facility] ERT [id number] Univers 23:53:00 01:52:00 ity of [facility] 2021-12-12 2021-12-13 Emergency Bill Coles [facility] [id number] Univers 23:53:00 01:52:00 Kiersten BULLOCK 350.1.13.10 i ty [place] [phone] [facility] 084 Branch 2021-11-20 2021-11-20 Television News Anchor [facility] [id number] Univers 09:45:00 10:00:00 Visit Santiago Cardenas [facility] [id number] [place] [phone] [facility] 316 Branch 2021-11-20 2021-11-20 Office [facility] [id number] Univers 08:30:00 09:00:00 Visit [facility] 350.1.13.10 i ty [place] [phone] [facility] 089 Branch 2021-11-20 2021-11-20 Outpatient R [facility] [id number] Univers 08:30:00 08:30:00 [facility] 2021-11-20 2021-11-20 Outpatient R [facility] [id number] Univers 08:30:00 08:30:00 [facility] 2021-11-20 2021-11-20 Outpatient R [facility] [id number] Univers 08:30:00 08:30:00 [facility] 2021-11-20 2021-11-20 Outpatient R [facility] [id number] Univers 08:30:00 08:30:00 [facility] 2021-10-24 2021-10-24 Emergency X KATELYNCOUNTS INCLUDE 234 BEDS AT THE [facility] ERT [id number] Univers 16:27:00 22:26:00 [facility] 2021-10-24 Emergency [facility] [id number] Univers 16:27:00 [facility]:26:[facility] 2021-10-24 Emergency Reilly Means [facility] 1.2.840. 114 [id number] Univers 16:27:00 22:26:00 Charity Mcallister [place] 350.1.13.10 [place] [id number] [facility] 084 Branch 2021-10-23 2021-10-24 Emergency [facility] [id number] Univers 20:22:00 02:57:00 CHARITY charlie [facility] 2021-10-23 2021-10-24 [facility] 1.2.965.544 0306 [id number] Univers 20:22:00 02:57:00 Krishnajose Christian [place] 350.1.13.10 [place]2.7.2.686 [place] [facility] [phone] [place] 925074 [place] 2021-09-07 2021-09-07 Outpatient R SELF, [facility] [id number] Univers 08:00:00 08:00:00 GADIEL familia lela [place] [facility] 2021-09-07 2021-09-07 Outpatient R [facility], [facility] [id number] Univers 08:00:00 08:00:00 GADIEL vogel [place] [facility] 2021-08-21 2021-08-21 Outpatient R [facility] [id number] Univers 10:45:00 10:45:00 [facility] 2021-08-21 2021-08-21 Television News Anchor Santiago Cardenas 1.2.840.1 [id number] Univers 10:45:00 10:45:00 Visit [facility] 65563.1.1 ity of 3.104.2.7 [place] .3.928417 Medica l .8 [place] 2021-08-21 2021-08-21 Office [facility], 1.2.840.4 [id number] Univers 08:30:00 09:00:00 Visit Santiago 94561.1.1 ity of 3.104.2.7 [place] .3.041202 Medica l .8 [place] 2021-08-21 2021-08-21 Office [facility], [facility] 1.2.221.801 [id number] [id number] Univers 08:30:00 09:00:00 Visit Santiago [facility] 350.1.13.10 i ty of [facility] 4.2.7.2.686 [place] [id number] [facility] 089 Branch 2021-08-21 2021-08-21 Outpatient [facility] [id number] Univers 08:30:00 08:30:00 [facility] 2021-08-21 2021-08-21 Travel 1.2.840.1 1.2.864.147 2045 3865 Univers 00:00:00 00:00:00 27708.1.1 350.1.13.10 ity of 3.104.2.7 4[place]7.3.698 [place] .3.381580 084.8 Medica l .8 [place] 2021-08-14 2021-08-14 Telephone East, 1.2.840.3 [id number] Univers 00:00:00 00:00:00 Santiago 88034.1.1 ity of 3.104.2.7 [place] .3.736363 Medica l .8 [place] 2021-08-13 2021-08-13 Telephone East, 1.2.840.9 [id number] Univers 00:00:00 00:00:00 Santiago 46551.1.1 ity of 3.104.2.7 [place] .3.636515 Medica l .8 [place] 2021-08-11 2021-08-11 Outpatient [facility] [id number] Univers 08:00:00 08:00:00 [facility] 2021-08-05 2021-08-05 Inpatient Ashely, [facility] [id number] [facility] 05:24:00 05:24:00 Mike 31 [facility] 2021-07-20 2021-07-20 Outpatient [facility] [id number] Univers 10:00:00 10:00:00 [facility] 2021-07-14 2021-07-14 Office KIMBERLEY Lira 6400 1.2.840.114 13 [id number] [place] 08:45:00 09:34:01 Visit Elan RUIZ 350.1.13.58 Health 9.2.7.2.686 [id number] 1 2021-07-09 2021-07-09 Telephone KIMBERLEY Layton 6400 1.2.840.114 [id number] [place] 00:00:00 00:00:[address] 350.1.13.58 Health 9.2.7.2.686 [id number] 1 2021-07-09 2021-07-09 Telephone Maryjaneporay, UTP 6400 1.2.840.114 [id number] [place] 00:00:00 00:00:[address] 350.1.13.58 Health 9.2.7.2.686 [id number] 1 2021-07-03 2021-07-03 Outpatient R EAST, [facility] [id number] Univers 08:00:00 08:00:00 SANTIAGO barbosa [facility] 2021-06-17 2021-06-17 Inpatient RAUL Lund, [facility]L INTE.02 [id number] [facility] 10:56:00 14:36:[address] [place] [address] 2021-06-15 2021-06-15 Outpatient R SELF, [facility] [id number] Univers 10:15:00 11:07:21 [facility] 2021-06-15 2021-06-15 Outpatient R SELF, [facility] [id number] Univers 10:15:00 10:15:00 [facility] 2021-06-15 2021-06-15 Outpatient R SELF, [facility] [id number] Univers 10:15:00 10:15:00 [facility] 2021-06-15 2021-06-15 Orders Doctor 1.2.840.0 [id number] Univers 00:00:00 00:00:00 Only Unassigned, 28639.1.1 ity of [place] 3.104.2.7 [place] .3.245634 [facility] 2021-06-15 2021-06-15 Travel 1.2.840.1 1.2.199.820 1832 [id number] Univers 00:00:00 00:00:00 64663.1.1 350.1.13.10 ity of 3.104.2.7 4.[place].7.3.698 [place] .3.540300 084.8 Medica l .8 [place] 2021-06-11 2021-06-11 [facility] 1.2.075.060 2902 9185 Univers 00:00:00 00:00:00 [facility] 350.1.13.10 i ty of CLINICS 4[place].2.[place] [id number] [place] 925079 [place] 2021-06-11 2021-06-11 Refill [facility], 1.2.840.1 [id number] 185 Univers 00:00:00 00:00:00 Santiago 81812.1.1 ity of 3.104.2.7 [place] .3.989797 Medica l .8 [place] 2021-06-05 2021-06-05 Outpatient R [facility] [id number] Univers 09:00:00 09:00:00 SANTIAGO ity of [facility] 2021-06-02 2021-06-02 [facility], [facility] 1.2.840.114 [id number] Univers 00:00:00 00:00:00 [facility] 350.1.13.10 i ty of [place] [id number] [address] 2021-06-02 2021-06-02 Telephone [facility], 1.2.840.7 [id number] 903 [id number] Univers 00:00:00 00:00:00 Santiago 57444.1.1 ity of 3.104.2.7 [place] .3.754519 Medica l .8 [place] 2021-05-29 2021-05-29 Telephone East, 1.2.840.0 [id number] [id number] Univers 00:00:00 00:00:00 Santiago 90740.1.1 ity of 3.104.2.7 [place] .3.274053 Medica l .8 Branch 2021-05-29 2021-05-29 Telephone [facility], 1.2.840.9 [id number] [id number] Univers 00:00:00 00:00:00 Santiago 54856.1.1 ity of 3.104.2.7 [facility].714161 Medica l 8 Branch 2021-05-25 2021-05-25 Outpatient R RODO, [facility] [id number] Univers 08:00:00 08:00:00 GADIEL vogel [place] [facility] 2021-04-29 2021-04-29 Outpatient R LALA, [facility] [id number] Univers 08:00:00 08:00:00 NIKOLAI familia [facility] 2021-04-28 2021-04-28 Telephone Ap, [facility] 6400 1.2.840.114 [id number] [place] 00:00:00 00:00:00 Maríabrigidamarika [address] 350.1.13.58 Health 9.2.7.2.686 [id number] 1 2021-04-28 2021-04-28 Telephone Jailyn, 1.2.840.0 [id number] 21 [id number] Methodi 00:00:00 00:00:[address] 3.430.2.7 Hospit a .3.574173 l .8 2021-03-31 2021-03-31 Orders Carol Ann 1.2.840.1 [id number] 21 [id number] Methodi 00:00:00 00:00:00 Only Sarai Lieberman 65028.1.1 979 s t 3.430.2.7 Hospit a .3.734833 l .8 2021-03-30 2021-03-30 Outpatient R RODO, [facility] [id number] Univers 08:45:00 08:45:00 GADIEL rodas [facility] 2021-03-24 2021-03-24 Telephone Jailyn, 1.2.840.1 [id number] 21 [id number] Methodi 00:00:00 00:00:[address] 3.430.2.7 Hospit a .3.953063 l .8 2021-02-13 2021-02-13 Telephone Ronald, 1.2.840.3 [id number] 876 [id number] [facility] 00:00:00 00:00:00 Santiago 83856.1.1 ity of 3.104.2.7 [place] .3.867481 Medica l .8 Branch 2021-01-28 2021-01-28 Laure REEVES [facility] [id number] Univers 08:45:00 09:37:00 NIKOLAI ity of [facility] 2021-01-28 2021-01-28 Travel 1.2.840.1 1.2.120.921 4672 9777 [facility] 00:00:00 00:00:00 91127.1.1 350.1.13.10 ity of 3.104.2.7 4.[place].7.3.698 [place] .3.251599 084.8 Medica l .8 [place] 2021-01-19 2021-01-19 Cynthia Pelletier, 1.2.840.1 [id number] 2100 [id number] Method 00:00:00 00:00:[address] 3.430.2.7 Hospit a .3.634706 l .8 2021-01-04 2021-01-04 Letter Shelia, 1.2.840.1 [id number] 696 Univers 00:00:00 00:00:00 (Out) Dagoberto H 67689.1.1 ity of 3.104.2.7 [place] .3.190334 Medica l .8 Branch 2021-01-04 2021-01-04 Dmitry Bass, 1.2.840.1 [id number] 01204 696 Univers 00:00:00 00:00:00 (Out) Dagoberto H 56276.1.1 ity of 3.104.2.7 [place] .3.378306 Medica l .8 Branch 2021-01-03 2021-01-03 Dmitry Bass, 1.2.840.9 [id number] 13870 790 Univers 00:00:00 00:00:00 (Out) Dagoberto H 43842.1.1 ity of 3.104.2.7 [place] .3.319383 Medica l .8 Branch 2021-01-03 2021-01-03 Dmitry Bass, 1.2.840.1 [id number] 790 Univers 00:00:00 00:00:00 (Out) Dagoberto Peterson 76489.1.1 ity of 3.104.2.7 [place] .3.564079 Medica l .8 [place] 2021-01-02 2021-01-02 Outpatient R [facility] [id number] 786 Univers 13:40:00 13:40:00 ity of [facility] 2021-01-02 2021-01-02 Laboratory Cuba Franks 1.2.840.9 [id number] [id number] Univers 12:14:13 12:57:34 Only Lab, [facility] [place] 13556.1.1 ity of 3.104.2.7 [place] .3.291511 Medica l .8 [place] 2021-01-02 2021-01-02 Laboratory Cuba Franks 1.2.840.0 [id number] [id number] Univers :14: 12:57:34 Only Lab, [facility] F[place] I 08262.1.1 ity of 3.104.2.7 [place] .3.501623 Medica l .8 [place] 2021-01-02 2021-01-02 Travel 1.2.840.1 1.2.795.025 4310 2306 Univers 00:00:00 00:00:00 07431.1.1 350.1.13.10 ity of 3.104.2.7 4.2.7.3.698 [place] .3.602366 084.8 Medica l .8 [place] 2021-01-02 2021-01-02 Letter Doctor 1.2.840.4 [id number] 15013 948 Univers 00:00:00 00:00:00 (Out) Unassigned, 53902.1.1 ity of [place] 3.104.2.7 [place] .3.442408 Medica l .8 [place] 2021-01-02 2021-01-02 Letter Doctor 1.2.840.8 [id number] 64596 946 Univers 00:00:00 00:00:00 (Out) Unassigned, 34574.1.1 ity of [place] 3.104.2.7 [place] .3.133935 Medica l .8 Branch 2021-01-02 2021-01-02 Travel 1.2.840.1 1.2.649.004 9454 2306 Univers 00:00:00 00:00:00 97458.1.1 350.1.13.10 ity of 3.104.2.7 4.2.7.3.698 [place] .3.310690 084.8 Medica l .8 [place] 2021-01-02 2021-01-02 Letter Doctor 1.2.840.9 [id number] 30389 948 Univers 00:00:00 00:00:00 (Out) Unassigned, 57635.1.1 ity of [place] 3.104.2.7 [place] .3.342180 Medica l .8 [place] 2021-01-02 2021-01-02 Letter Doctor 1.2.840.7 [id number] 01744 946 Univers 00:00:00 00:00:00 (Out) Unassigned, 55207.1.1 ity of [place] 3.104.2.7 [place] .3.245641 Medica l .8 [place] 2020-12-22 2020-12-22 Telephone Beltran, 1.2.840.5 [id number] 862 43822 Univers 00:00:00 00:00:00 Devina R 86703.1.1 i ty of 3.104.2.7 [place] .3.314683 Medica l .8 [place] 2020-12-22 2020-12-22 Telephone Beltran, 1.2.840.5 [id number] 862 09898 Univers 00:00:00 00:00:00 Eligionda R 17237.1.1 i ty of 3.104.2.7 [place] .3.176207 Medica l .8 [place] 2020-12-12 2020-12-12 Office Hematpour, UTP 6400 1.2.840.114 12 [id number] [place] 07:42:02 08:18:50 Visit Beverly RUIZ 350.1.13.58 Health 9.2.7.2.686 [id number] 1 2020-12-12 2020-12-12 Office Hematpour, UTP 6400 1.2.840.114 12 [id number] 07:42:02 08:18:[address] 350.1.13.58 9.2.7.2.686 [id number] 1 2020-12-09 2020-12-09 Telephone [facility], 1.2.840.1 [id number] Methodi 00:00:00 00:00:00 Sarai Corbin. 07499.1.1 316 s t 3.430.2.7 Hospit a .3.111631 l .8 2020-12-08 2020-12-08 [facility], 1.2.840.1 [id number] 2100 319660 Methodi 12:35:54 23:59:00 Encounter Ray 23066.1.[address] 3.430.2.7 Hospit a .3.292642 l .8 2020-12-08 2020-12-08 [facility], 1.2.840.1 [id number] 26714 82439 Methodi 17:25:00 17:30:[address] 3.430.2.7 Hospit a .3.484488 l .8 2020-12-08 2020-12-08 Office [facility], 1.2.840.1 [id number] 18972 93985 Methodi 10:30:00 11:39:56 Visit Ray 51897.1.[address] 3.430.2.7 Hospit a .3.166680 l .8 2020-12-08 2020-12-08 Travel 1.2.840.1 1.2.023.471 9516 454790 Methodi 00:00:00 00:00:[address] 3.430.2.7 0.2.7.3.698 Ho spita .3.055753 084.8 l .8 2020-12-02 2020-12-02 Television News Anchor Santiago Cardenas 1.2.840.1 [id number] Univers 10:20:06 10:36:19 Visit [facility] 66517.1.1 ity of 3.104.2.7 [place] .3.042525 Medica l .8 [place] 2020-12-02 2020-12-02 Television News Anchor Santiago Cardenas 1.2.840.1 [id number] Univers 10:20:06 10:36:19 Visit [facility] 31906.1.1 ity of 3.104.2.7 [place] .3.889910 Medica l .8 [place] 2020-12-02 2020-12-02 Television News Anchor [facility]ERSIT 1.2.840.114 8 [id number] 10:20:06 10:36:19 Visit [facility] 350..13.10 CLINICS 4.2.7.2.686 015.2978602 316 2020-12-02 2020-12-02 Office Ronald 1.2.840.2 [id number] 48503 528 Univers 08:31:37 09:01:37 Visit Santiago 91110.1.1 ity of 3.104.2.7 [place] .3.476047 Medica l .8 [place] 2020-12-02 2020-12-02 [facility] [id number] Univers 09:00:00 09:00:00 SANTIAGO barbosa of [facility] 2020-11-25 2020-11-25 Office Devin, 1.2.840.8 [id number] 98410 865 Univers 11:06:30 11:58:14 Visit Robbi Hairston 74356.1.1 i ty of 3.104.2.7 [place] .3.933201 Medica l .8 [place] 2020-11-25 2020-11-25 Office Devin 1.2.840.9 [id number] 08012 865 Univers 11:06:30 11:58:14 Visit Robbi Hairston 66886.1.1 i ty of 3.104.2.7 [place] .3.616036 Medica l .8 [place] 2020-11-25 2020-11-25 Office Devin [facility] 1.2.840.114 [id number] 11:06:30 11:58:14 Visit Robbi Hairston [employer] 350.1.13.10 REGIONAL 4.2.7.2.686 MATERNAL [id number] & CHILD [address] [place] [address] 2020-11-25 2020-11-25 Outpatient R [facility] [id number] 288 Univers 11:00:00 11:00:00 ity of [facility] 2020-11-25 2020-11-25 Telephone Devin, 1.2.840.8 [id number] 855 34671 Univers 00:00:00 00:00:00 Robbi Hairston 31508.1.1 i ty of 3.104.2.7 [place] .3.438189 Medica l .8 [place] 2020-11-25 2020-11-25 Refill East, 1.2.840.6 [id number] 38643 592 Univers 00:00:00 00:00:00 Santiago 26937.1.1 ity of 3.104.2.7 [place] .3.710546 Medica l .8 [place] 2020-11-25 2020-11-25 Travel 1.2.840.1 1.2.069.971 8175 0247 Univers 00:00:00 00:00:00 85928.1.1 350.1.13.10 ity of 3.104.2.7 4.2.7.3.698 [place] .3.838827 084.8 Medica l .8 [place] 2020-11-25 2020-11-25 Orders Doctor 1.2.840.0 [id number] 064 Univers 00:00:00 00:00:00 Only Unassigned, 72331.1.1 ity of [place] 3.104.2.7 [place] .3.579982 Medica l .8 [place] 2020-11-25 2020-11-25 Telephone Devin, 1.2.840.1 [id number] 855 48455 Univers 00:00:00 00:00:00 Robbi Hairston 59864.1.1 i ty of 3.104.2.7 [place] .3.015760 Medica l .8 Branch 2020-11-25 2020-11-25 Refill East, 1.2.840.4 [id number] 15698 592 Univers 00:00:00 00:00:00 Santiago 21561.1.1 ity of 3.104.2.7 [place] .3.064123 Medica l .8 Branch 2020-11-25 2020-11-25 Travel 1.2.840.1 1.2.287.992 0072 0247 Univers 00:00:00 00:00:00 71504.1.1 350.1.13.10 ity of 3.104.2.7 4.2.7.3.698 [place] .3.601041 084.8 Medica l .8 [place] 2020-11-25 2020-11-25 Orders Doctor 1.2.840.6 [id number] 60600 064 Univers 00:00:00 00:00:00 Only Unassigned, 25571.1.1 ity of [place] 3.104.2.7 [place] .3.133032 Medica l .8 [place] 2020-11-25 2020-11-25 Refill [facility] 1.2.686.579 9226 4592 00:00:00 00:00:00 [facility] 350.1.13.10 [facility] 4.2.7.2.686 [id number] 089 2020-11-25 2020-11-25 Telephone [facility] 1.2.100.529 5900 0821 00:00:00 00:00:00 Robbi Hairston [employer] 350.1.13.10 [facility] 4.2.7.2.686 MATERNAL 199.1272103 & CHILD [address] [place] [address] 2020-11-14 2020-11-14 Abstract Clark 1.2.840.1 [id number] 71868 69449 Methodi 00:00:00 00:00:[address] 3.430.2.7 Hospit a .3.743397 l .8 2020-11-14 2020-11-14 Telephone Clark 1.2.840.1 [id number] 2100 794346 Methodi 00:00:00 00:00:[address] 3.430.2.7 Hospit a .3.207246 l .8 2020-11-12 2020-11-12 Outpatient R RONALD [facility] [id number] 323 Univers 08:30:00 08:30:00 SANTIAGO barbosa [facility] 2020-11-07 2020-11-07 Telephone Javier Ortizantonina [facility] 6400 1.2.840.11 4 [id number] [place] 00:00:00 00:00:[address] 350.1.13.58 Health 9.2.7.2.686 539.5531656 1 2020-11-07 2020-11-07 Telephone Diana KIMBERLEY 6400 1.2.840.114 124 [id number] 00:00:00 00:00:[address] 350.1.13.58 9.2.7.2.686 365.4581465 1 2020-10-31 2020-10-31 Office Hematpour KIMBERLEY 6400 1.2.840.114 12 [id number] [place] 07:54:00 09:45:[address] 350.1.13.58 Health 9.2.7.2.686 321.3775996 1 2020-10-30 2020-10-30 Abstract Maguire Rody UTP 6400 1.2.840.1 14 [id number] [place] 00:00:00 00:00:[address] 350.1.13.58 Health 9.2.7.2.686 450.4047416 1 2020-10-29 2020-10-29 Refill Ronald, 1.2.840.7 [id number] 66191 400 Univers 00:00:00 00:00:00 Santiago 29193.1.1 ity 3.104.2.7 [place] .3.459838 Medica l .8 Branch 2020-10-29 2020-10-29 Refill Ronald, 1.2.840.8 [id number] 33940 400 Univers 00:00:00 00:00:00 Santiago 70010.1.1 ity of 3.104.2.7 [place] .3.091307 Medica l .8 [place] 2020-10-27 2020-10-27 Telephone Jailyn, 1.2.840.6 [id number] 21 [id number] Methodi 00:00:00 00:00:[address] 3.430.2.7 Hospit a .3.778491 l .8 2020-10-24 2020-10-24 Telephone Clark, 1.2.840.1 [id number] 2100 070602 Methodi 00:00:00 00:00:[address] 3.430.2.7 Hospit a .3.657656 l .8 2020-10-22 2020-10-22 Outpatient R SELF, [facility] [id number] 868 Univers 13:00:00 13:00:00 GADIEL barbosa lela [place] [facility] 2020-10-22 2020-10-22 Travel 1.2.840.1 1.2.380.439 5761 3839 Univers 00:00:00 00:00:00 39550.1.1 350.1.13.10 ity of 3.104.2.7 4.[place].7.3.698 [place] .3.077805 084.8 Medica l .8 [place] 2020-10-22 2020-10-22 Travel 1.2.840.1 1.2.759.617 9824 3839 Univers 00:00:00 00:00:00 50592.1.1 350.1.13.10 ity of 3.104.2.7 4.2.7.3.698 [place] .3.017975 084.8 Medica l .8 [place] 2020-10-13 2020-10-13 Outpatient R SELF, [facility] [id number] Univers 08:45:00 08:45:00 GADIEL macielcharlie vogel [facility] 2020-10-06 2020-10-12 Telemedici Jeredimasa, 1.2.840.1 [id number] 21 [id number] Methodi 15:30:00 00:08:46 ne Ray 61754.1.[address] 3.430.2.7 Hospit a .3.287226 l .8 2020-09-30 2020-09-30 [facility], 1.2.840.9 [id number] 21 [id number] Methodi 00:00:00 00:00:[address] 3.430.2.7 Hospit a .3.342403 l .8 2020-09-21 2020-09-21 [facility] 1.2.840.1 1.2.931.377 6928 027929 Methodi 00:00:00 00:00:[address] 3.430.2.7 0.2.7.3.698 Ho spita .3.658045 084.8 l .8 2020-09-06 2020-09-06 [facility] 1.2.840.1 [id number] 01450 15760 Methodi 17:42:30 23:59:[address] 3.430.2.7 Hospit a .3.224687 l .8 2020-09-06 2020-09-06 [facility], 1.2.840.1 [id number] 2100 161377 Methodi 16:50:00 17:41:00 Encounter Ray [address]999.1.[address] 3.430.2.7 Hospit a .3.689294 l .8 2020-09-05 2020-09-05 [facility], 1.2.840.1 [id number] 2100 802581 Methodi 09:17:00 19:45:00 Encounter Ray [address]66.1.[address] 3.430.2.7 Hospit a .3.363284 l .8 2020-09-05 2020-09-05 [facility], 1.2.840.1 [id number] Methodi 11:30:00 13:15:[address] 3.430.2.7 Hospit a .3.048243 l .8 2020-09-05 2020-09-05 Anesthesia Remigio, 1.2.840.1 [id number] Methodi 11:27:00 12:20:00 Event Kirit 29943.1.1 243 s t V. 3.430.2.7 Hospit a .3.347615 l .8 2020-09-05 2020-09-05 Travel 1.2.840.1 1.2.334.682 [id number] Methodi 00:00:00 00:00:[address] 3.430.2.7 0.2.7.3.698 Ho spita .3.911452 084.8 l .8 2020-09-04 2020-09-04 Telephone [place], 1.2.840.1 [id number] Methodi 00:00:00 00:00:00 Sarai Lieberman 49199.1.1 762 s t 3.430.2.7 Hospit a .3.152159 l .8 2020-09-02 2020-09-02 Telephone [place], 1.2.840.3 [id number] Methodi 00:00:00 00:00:00 Sarai Lieberman 24954.1.1 344 s t 3.430.2.7 Hospit a .3.799144 l .8 2020-08-29 2020-08-30 Bedded [facility] [id number] Memoria 10:20:00 14:10:00 Outpatient [facility] 00 l [facility] 2020-08-29 2020-08-30 Outpatient [place], [facility] CAR 7500 [facility] 05:20:00 09:10:00 [place] 2020-08-06 2020-08-06 Office [place], 1.2.840.6 [id number] [facility] 08:03:23 09:17:49 Visit Santiago 18196.1.1 ity of 3.104.2.7 [place] .3.961735 Medica l .8 Branch 2020-08-06 2020-08-06 Outpatient R EAST, [facility] [id number] Univers 08:30:00 08:30:00 SANTIAGO maciely of [facility] 2020-07-14 2020-07-14 Outpatient R SELF, [facility] [id number] Univers 09:30:00 09:30:00 GADIEL rodas [facility] 2020-07-14 2020-07-14 Travel 1.2.840.1 1.2.734.749 [id number] Univers 00:00:00 00:00:00 01827.1.1 350.1.13.10 ity of 3.104.2.7 4[place].3.698 [place] .3.702201 084.8 Medica l .8 [place] 2020-07-14 2020-07-14 Orders Doctor 1.2.840.9 [id number] Univers 00:00:00 00:00:00 Only Unassigned, 65168.1.1 ity of [place] 3.104.2.7 [place] .3.371212 Medica l .8 [place] 2020-06-16 2020-06-16 Outpatient R SELF, [facility] [id number] Univers 08:00:00 08:00:00 GADIEL rodas [facility] 2020-06-06 2020-06-06 Telephone [place], 1.2.840.0 [id number] Univers 00:00:00 00:00:00 [place] 90541.1.1 ity of 3.104.2.7 [place] .3.189484 Medica l .8 [place] 2020-06-04 2020-06-04 Television News Anchor [place] Cardenas 1.2.840.1 [id number] Univers 09:31:58 09:40:12 Visit [facility] 48426.1.1 ity of 3.104.2.7 [place] .3.529052 Medica l .8 [place] 2020-06-04 2020-06-04 Office [place], [place] 1.2.775.596 [id number] Univers 08:13:41 09:28:25 Visit [place] [facility] 350.1.13.10 i ty of CLINICS 4.2.7.2.686 Richi bach 197.5238524 Medi porfirio 089 [place] 2020-06-04 2020-06-04 Outpatient R [facility], [facility] [id number] Univers 08:30:00 08:30:00 SANTIAGO barbosa [facility] 2020-06-04 2020-06-04 Orders Doctor 1.2.840.9 [id number] Univers 00:00:00 00:00:00 Only Unassigned, 01704.1.1 ity of [place] 3.104.2.7 [place] .3.592938 Medica l .8 [place] 2020-05-19 2020-05-19 Telephone [place], 1.2.840.2 [id number] Univers 00:00:00 00:00:00 [place] 79078.1.1 ity of 3.104.2.7 [place] .3.256492 Medica l .8 [place] 2020-04-24 2020-04-24 Telephone [place], 1.2.840.5 [id number] Univers 00:00:00 00:00:00 [place] 11017.1.1 ity of 3.104.2.7 [place] .3.039233 Medica l .8 [place] 2020-04-14 2020-04-14 Outpatient R [facility] [id number] Univers 09:00:00 09:00:00 SANTIAGO ity [facility] 2020-04-14 2020-04-14 Telephone [place], 1.2.840.9 [id number] Univers 00:00:00 00:00:00 [place] 09183.1.1 ity of 3.104.2.7 [place] .3.267908 Medica l .8 [place] 2020-03-31 2020-03-31 Outpatient R [facility], [facility] [id number] Univers 08:30:00 08:30:00 SANTIAGO barbosa [facility] 2020-03-03 2020-03-03 Outpatient R SELF, [facility] [id number] Univers 08:00:00 08:00:00 GADIEL vogel [facility] 2020-03-03 2020-03-03 Outpatient R SELF, [facility] [id number] Univers 08:00:00 08:00:00 GADIEL ity o f [facility] 2020-03-03 2020-03-03 Travel 1.2.840.1 1.2.790.039 [id number] Univers 00:00:00 00:00:00 70035.1.1 350.1.13.10 ity of 3.104.2.7 [place].698 [place] .[place].595[place] 084.8 Medica [place] .8 [place] 2020-02-06 2020-02-06 Telephone [place], 1.2.840.2 [id number] Univers 00:00:00 00:00:00 [place] 78261.1.1 ity of 3.104.2.7 [place] .3.319869 Medica l .8 [place] 2020-01-26 2020-01-26 Emergency Caridad, 1.2.840.3 [id number] Univers 10:03:00 13:05:00 Cynise 75051.1.1 ity of 3.104.2.7 [place] .3.588094 Medica l .8 [place] 2020-01-26 2020-01-26 Travel 1.2.840.1 1.2.049.104 [id number] Univers 00:00:00 00:00:00 47757.1.1 350.1.13.10 ity of 3.104.2.[place].698 [place].0000[place] 084.8 Medica [place] .8 [place] 2020-01-25 2020-01-25 Outpatient R [facility] [id number] Univers 08:30:00 08:30:00 SANTIAGO ity of [facility] 2020-01-25 2020-01-25 Telemedici [place], 1.2.840.7 [id number] Univers 07:36:49 08:06:49 ne Visit [place] 47166.1.1 ity of 3.104.2.7 [place] .3.152653 Medica l .8 [place] 2020-01-16 2020-01-16 Outpatient R [facility] [id number] Univers 08:00:00 08:00:00 SANTIAGO ity [facility] 2020-01-16 2020-01-16 Telephone [place], 1.2.840.4 [id number] Univers 00:00:00 00:00:00 [place] 91124.1.1 ity of 3.104.2.7 [place] .3.016998 Medica l .8 [place] 2020-01-14 2020-01-14 Outpatient R SELF, [facility] [id number] Univers 08:00:00 08:00:00 GADIEL maciely o f [facility] 2019-12-31 2019-12-31 Outpatient R SELF, [facility] [id number] Univers 08:45:00 08:45:00 GADIEL barbosa o f [facility] 2019-10-17 2019-10-17 Outpatient R [facility], [facility] [id number] Univers 08:30:00 08:30:00 SANTIAGO barbosa [facility] 2019-10-12 2019-10-12 Outpatient R E[place], [facility] [id number] Univers 13:00:00 13:00:00 SANTIAGO barbosa [facility] 2019-10-12 2019-10-12 Telemedici [place], 1.2.840.3 [id number] Univers 07:38:30 08:08:30 ne Visit [place] 22773.1.1 ity of 3.104.2.7 [place] .3.480964 Medica l .8 [place] 2019-10-08 2019-10-08 Outpatient R SELF, [facility] [id number] Univers 10:15:00 10:15:00 GADIEL barbosa o f [facility] 2019-10-03 2019-10-03 Case Assman, 1.2.840.6 [id number] Univers 00:00:00 00:00:00 Management Michael Corbin 98460.1.1 i ty of 3.104.2.7 [place] .3.512001 Medica l .8 [place] 2019-09-27 2019-09-27 Telephone [place], 1.2.840.7 [id number] Univers 00:00:00 00:00:00 [place] 13745.1.1 ity of 3.104.2.7 [place] .3.678281 Medica l .8 [place] 2019-09-04 2019-09-04 Refill [place], 1.2.840.8 [id number] Univers 00:00:00 00:00:00 [place] 07977.1.1 ity of 3.104.2.7 [place] .3.497175 Medica l .8 [place] 2019-07-24 2019-07-24 Outpatient R [facility] [id number] Univers 08:30:00 08:30:00 SANTIAGO ity [facility] 2019-07-17 2019-07-17 Outpatient R [facility] [id number] Univers 10:00:00 10:00:00 SANTIAGO ity [facility] 2019-06-15 2019-06-15 Telephone [place], 1.2.840.2 [id number] Univers 00:00:00 00:00:00 [place] 06998.1.1 ity of 3.104.2.7 [place] .3.898281 Medica l .8 [place] 2019-06-13 2019-06-13 Telephone Team, [facility] 1.2.840.8 [id number] Univers 00:00:00 00:00:00 Health 58948.1.1 it[place] .3.473802 Med[place] .8 [place] 2019-05-10 2019-05-10 Refill [place], 1.2.840.8 [id number] Univers 00:00:00 00:00:00 Snatiago 22168.1.1 ity of 3.104.2.7 [place] .3.868525 Medica l .8 [place] 2019-05-09 2019-05-09 Refill [place], 1.2.840.6 [id number] Univers 00:00:00 00:00:00 [place] 02170.1.1 ity of 3.104.2.7 [place] .3.906786 Medica l .8 [place] 2019-04-30 2019-04-30 [facility]patient [facility] [id number] Univers 10:15:00 10:33:05 GADIEL ity o f [facility] 2019-04-18 2019-04-18 Television News Anchor [place] Cardenas 1.2.840.1 [id number] Univers 10:00:39 10:44:31 Visit [facility] 04328.1.1 ity of 3.104.2.7 [place] .3.346114 Medica l .8 [place] 2019-04-18 2019-04-18 Outpatient R RONALD [facility] [id number] Univers 10:00:00 10:44:31 SANTIAGO ity of [facility] 2019-04-18 2019-04-18 Office Ronald, 1.2.840.0 [id number] Univers 08:27:44 09:53:27 Visit [place] 29058.1.1 ity of 3.104.2.7 [place] .3.385204 Medica l .8 [place] 2019-04-18 2019-04-18 Orders Doctor 1.2.840.0 [id number] Univers 00:00:00 00:00:00 Only Unassigned, 09111.1.1 ity of [place] 3.104.2.7 [place] .3.542036 Medica l .8 [place] 2019-04-11 2019-04-11 Refill Ronald, 1.2.840.8 [id number] Univers 00:00:00 00:00:00 [place] 54531.1.1 ity of 3.104.2.7 [place] .3.725466 Medica l .8 [place] 2019-04-09 2019-04-09 Refill Ronald, 1.2.840.9 [id number] Univers 00:00:00 00:00:00 [place] 28429.1.1 ity of 3.104.2.7 [place] .3.048895 Medica l .8 [place] 2019-04-03 2019-04-03 Telephone Team, [facility] 1.2.840.4 [id number] Univers 00:00:00 00:00:00 Health 25796.1.1 [place] .3.389082 [place] .8 [place] 2019-03-27 2019-03-27 Telephone Self, 1.2.840.3 [id number] Univers 00:00:00 00:00:00 Gadiel 74824.1.1 ity of 3.104.2.7 [place] .3.367527 Medica l .8 [place] 2019-01-17 2019-01-17 Office [place], 1.2.840.2 [id number] Univers 07:37:21 10:32:51 Visit [place] 83874.1.1 ity of 3.104.2.7 [place] .3.816019 Medica l .8 [place] 2019-01-04 2019-01-12 Office Eveline Hansen 1.2.840.3 [id number] Univers 11:19:32 11:08:05 Visit Mariela 77761.1.1 ity of 3.104.2.7 [place] .3.799369 Medica l .8 [place] 2019-01-10 2019-01-10 Telephone Ephraimcharlie, 1.2.840.6 [id number] Univers 00:00:00 00:00:00 Eladio Inman 21631.1.1 ity of 3.104.2.7 [place] .3.031121 Medica l .8 [place] 2018-12-18 2018-12-18 Office Geraldine, 1.2.840.6 [id number] Univers 08:48:45 09:13:43 Visit Leyda 49824.1.1 it y of 3.104.2.7 [place] .3.968776 Medica l .8 [place] 2018-10-30 2018-10-30 Telephone [place], 1.2.840.8 [id number] Univers 00:00:00 00:00:00 [place] 60357.1.1 ity of 3.104.2.7 [place] .3.611519 Medica l .8 [place] 2018-10-23 2018-10-23 Orders Doctor 1.2.840.1 [id number] Univers 00:00:00 00:00:00 Only Unassigned, 60171.1.1 ity of [place] 3.104.2.7 [place] .3.881867 Medica l .8 [place] 2018-10-23 2018-10-23 Nurse Selvin, 1.2.840.4 [id number] Univers 00:00:00 00:00:00 Triage Stefanie 39963.1.1 ity of 3.104.2.7 [place] .3.756601 Medica l .8 [place] 2018-10-23 2018-10-23 Telephone Self, 1.2.840.8 [id number] Univers 00:00:00 00:00:00 Gadiel 73241.1.1 ity of 3.104.2.7 [place] .3.571667 Medica l .8 [place] 2018-10-20 2018-10-20 Telephone Self, 1.2.840.0 [id number] Univers 00:00:00 00:00:00 Gadiel 96685.1.1 ity of 3.104.2.7 [place] .3.860332 Medica l .8 [place] Results Test Description Test Time Test Comments Results Result Comments Source C-Reactive Protein 2023-03-17 15:55:44 Test Item Value Reference Range Interpretation Comme nts CRP (test code = 6700935015) 0.3 mg/dL <=0.8 Lab Interpretation (test code = 44740-4) Normal [facility] [id number] 15:23:48 Test Item Value Reference Range Interpretation Comments HGB A1C (test code = 5.3 % 4.0-5.7 4548-4) KYLE (test code = KYLE) Reference RangesNormal: <5.7%Prediabetes: 5.7 - 6.4%Diabetes: > 6.5% Lab Interpretation (test Normal code = 50957-1) [facility] Center[facility] [id number] 13:38:20 Test Item Value Reference Range Interpretation Comments IRON (test code = 54 ug/dL 50-160 Slight hem olysis 6720072514) TIBC (test code = 430 ug/dL 250-410 H 1496586516) % FE SAT (test code = 13 % 20-50 L 3207075645) Lab Interpretation (test Abnormal code = 25741-0) [facility] [id number] 12:04:28 Test Item Value Reference Range Interpretation Comments FREE T3 (test code = 0196447314) 6.12 pg/mL 2.77-5.27 H Lab Interpretation (test code = Abnormal 60741-2) [facility] [id number] 12:04:28 Test Item Value Reference Range Interpretation Comments FREE T4 (test code = 1.67 See_Comment [Autom ated message] 4043221357) The system Dianwoba generated this result transmitted ref erence range: 0.78 - 2 .20 ng/dL:. The ref erence range was not u sed to interpret this result as normal/abnor mal. Lab Interpretation (test Normal code = 94832-8) [facility] Test Item Value Reference Range Interpretation Comments MAGNESIUM (test code = 9216490270) 2.1 mg/dL 1.7-2.4 Lab Interpretation (test code = Normal 37456-7) [facility] [place] [facility] METABOLIC PANEL (NA, K, CL, CO2, GLUCOSE, BUN, CREATININE, CA)2023-03-17 09:29:43 Test Item Value Reference Range Interpretation Comments NA (test code = 137 mmol/L 135-145 0680601854) K (test code = 3.5 mmol/L 3.5-5.0 Slight 5614457246) hemolysis CL (test code = 103 mmol/L 98-108 5161742276) CO2 TOTAL (test code 25 mmol/L 23-31 = 8809507553) AGAP (test code = 9 2-16 5878794621) BUN (test code = 29 mg/dL 7-23 H Slight 2485586339) hemolysis GLUCOSE (test code = 138 mg/dL 70-110 H 1830330609) CREATININE (test code 1.16 mg/dL 0.50-1.04 H = 9250900547) CALCIUM (test code = 8.5 mg/dL 8.6-10.6 L 0442680872) eGFR (test code = 46.6 mL/min/1.73m2 2923486480) KYLE (test code = KYLE) Association of Glomerular Filtration Rate (GFR) and Staging of Kidney Disease* + -----+ --------+ +| GFR (mL/min/1.73 m2) ?| With Kidney Damage ?| ?Without Kidney Damage+ +------- +---- --+| ?>90 ?| ?Stage one ?| ? Normal ?+ ------+ ---------+--------- +| ?60-89 ?| ?Stage two ?| ? Decreased GFR ? + -----+ --------+ +| ?30-59 ?| ?Stage three ?| ? Stage three ? + -----+ --------+ +| ?15-29 ?| ?Stage four ? | ? Stage four ?+ ------+ ---------+--------- +| ?<15 (or dialysis) ? ?| ?Stage five ? | ? Stage five ?+ ------+ ---------+--------- + *Each stage assumes the associated GFR [...] tests). Lab Interpretation Abnormal (test code = 32313-4) [facility] CenterThyroid Stimulating Hormone (TSH)2023-03-17 07:17:33 Test Item Value Reference Range Interpretation Comments TSH (test code = 7.55 See_Comment H [Automated message] 2124893954) The system Dianwoba generated this result transmitted ref erence range: 0.45 - 4 .70 mIU/L. The refe rence range was not u sed to interpret this result as normal/abnor mal. Lab Interpretation (test Abnormal code = 38250-0) [facility] CenterSedimentation [id number] 06:57:22 Test Item Value Reference Range Interpretation Comments ESR (test code = 01411-9) 26 See_Comment [ Automated message] The system Dianwoba generated this result transmitted ref erence range: 2 - 30 m m/HR. The reference r abbey was not used to interpret this result as normal/abnor mal. Lab Interpretation (test Normal code = 11399-4) [facility] CenterDrug Screen Panel 3 [id number] 06:49:37 Test Item Value Reference Range Interpretation Comments ESTELA S (test code = Negative Negative 9202556634) BENZO S (test code = Negative Negative 5800087000) TRICYCLIC (test code = Negative Negative 5484487363) KYLE (test code = KYLE) Serum Drug Screen Cutoff Ranges Barbiturates ? ? - 3 mcg/mLBenzodiazepines ?- 50 ng/mLTCA ?- 300 ng/mL Test developed and characteristics determined by [facility] Laboratory Services. The results are to be used only for medical (i.e., treatment) purposes. Unconfirmed screening results must not be used for non-medical purposes (e.g., employment testing, legal testing). Lab Interpretation Normal (test code = 22173-7) [facility] CenterLipid Panel (Total Cholesterol, Triglycerides, HDL)2023-03-17 06:31:58 Test Item Value Reference Range Interpretation Comments CHOL (test code = 6930697279) 178 mg/dL 120-200 HDL (test code = 0737380953) 56 mg/dL >=50 HDLC RATIO (test code = 1886824439) 3.2 <=4.5 TRIG (test code = 5904965235) 101 mg/dL 30-170 LDL CHOL (test code = 80422-0) 102 mg/dL <=160 VLDL (test code = 4188782808) 20 mg/dL 5-60 Lab Interpretation (test code = Normal 86220-2) [facility] CenterTROPONIN [id number] 03:11:49 Test Item Value Reference Range Interpretation Comments TROPONIN I (test code = 0.008 ng/mL <=0.034 7057495397) KYLE (test code = KYLE) Reference (Normal) Range (defined by the 99th percentile reference [...] biotin. Lab Interpretation Normal (test code = 76731-4) [facility] CenterTROPONIN [id number] 21:39:24 Test Item Value Reference Range Interpretation Comments TROPONIN I (test code = 0.007 ng/mL <=0.034 6371618288) KYLE (test code = KYLE) Reference (Normal) Range (defined by the 99th percentile reference [...] biotin. Lab Interpretation Normal (test code = 91301-1) [facility] CenterN-TERMINAL [id number] 21:39:24 Test Item Value Reference Range Interpretation Comments NT-proBNP (test code = 3900 pg/mL <=125 H 26579-5) KYLE (test code = KYLE) Positive: Heart Failure Likely Lab Interpretation (test Abnormal code = 93727-8) [facility] CenterD-[id number] 21:31:22 Test Item Value Reference Interpretation Comments Range D-DIMER (test code = 0.31 See_Comment [Autom ated 9870789381) message] The system which generated this result transmitted reference range : <0.50 ?g/mL (FEU). The reference range was not used to interpret this result as normal/abnormal . KYLE (test code = This test may be KYLE) used in conjunction with a clinical pretest probability (PTP) assessment model to exclude venous thromboembolism (VTE) in patients suspected of deep venous thrombosis (DVT) and pulmonary embolism (PE) A D-Dimer value less than 0.50 ?g/ml (FEU) has a negative predicative value of 96 to 100% (95% CI)and 97 to 100% (95% CI) as an aid in the diagnosis of deep vein thrombosis (DVT) and pulmonary embolism when there is low or moderate pretest probability of PE or DVT. D-Dimer values are expressed in initial fibrinogen equivalent units (FEU)" The assay results should be used with other information, including the clinical context, in forming a diagnosis. Lab Interpretation Normal (test code = 88054-2) [facility]. METABOLIC PANEL ([id number])2023-03-16 21:27:24 Test Item Value Reference Range Interpretation Comments NA (test code = 138 mmol/L 135-145 4937979661) K (test code = 3.8 mmol/L 3.5-5.0 0184419463) CL (test code = 103 mmol/L 98-108 4043847472) CO2 TOTAL (test code = 28 mmol/L 23-31 5865292284) AGAP (test code = 7 2-16 2389593886) BUN (test code = 26 mg/dL 7-23 H 6371668714) GLUCOSE (test code = 88 mg/dL 70-110 6784281544) CREATININE (test code = 0.97 mg/dL 0.50-1.04 1670552265) TOTAL BILI (test code = 0.7 mg/dL 0.1-1.5 5412336491) CALCIUM (test code = 8.7 mg/dL 8.6-10.6 8556904232) T PROTEIN (test code = 7.1 g/dL 6.3-8.2 9670509595) ALBUMIN (test code = 4.2 g/dL 3.5-5.0 6354112887) ALK PHOS (test code = 87 U/L 34-122 4866591473) ALTv (test code = 15 U/L 5-35 1742-6) AST(SGOT) (test code = 33 U/L 13-40 7547800208) eGFR (test code = 57.3 mL/min/1.73m2 6643179762) KYLE (test code = KYLE) Association of [...] tests). Lab Interpretation Abnormal (test code = 12641-7) [facility] WITH [id number] 21:07:01 Test Item Value Reference Range Interpretation Comments WBC (test code = 4.10 See_Comment L [Automated 8390-2) message] The sy stem which generated this result transmitted reference range : 4.30 - 11.10 10*3/?L. The reference range was not used to interpret this result as normal/abnormal . RBC (test code = 4.40 See_Comment [Automated 109-8) message] The sy stem which generated this result transmitted reference range : 3.93 - 5.25 10*6/?L. The reference range was not used to interpret this result as normal/abnormal . HGB (test code = 11.2 g/dL 11.6-15.0 L 718-7) HCT (test code = 36.9 % 35.7-45.2 4544-3) MCV (test code = 83.9 fL 80.6-95.5 787-2) MCH (test code = 25.5 pg 25.9-32.8 L 785-6) MCHC (test code = 30.4 g/dL 31.6-35.1 L 786-4) RDW-SD (test code = 49.2 fL 39.0-49.9 91382-4) RDW-CV (test code = 16.1 % 12.0-15.5 H 788-0) PLT (test code = 111 See_Comment L [Automated 777-3) message] The sy stem which generated this result transmitted reference range : 166 - 358 10*3/ ?L. The reference r abbey was not used to interpret this result as normal/abnormal . MPV (test code = 8.9 fL 9.5-12.9 L 04779-9) NRBC/100 WBC (test 0.0 See_Comment [Automat ed code = 4620077302) message] The system which generated this result transmitted reference range : 0.0 - 10.0 /100 WBCs. The refer ence range was not u sed to interpret th is result as normal/abnormal . NRBC x10^3 (test code See_Comment [Auto mated = 0995557507) message] The s ystem which generated this result transmitted reference range : 10*3/?L. The reference range was not used to interpret this result as normal/abnormal . GRAN MAT (NEUT) % 62.2 % (test code = 770-8) IMM GRAN % (test code 1.20 % = 0725369521) LYMPH % (test code = 21.0 % 736-9) MONO % (test code = 10.0 % 5905-5) EOS % (test code = 5.1 % 713-8) BASO % (test code = 0.5 % 706-2) GRAN MAT x10^3(ANC) 2.55 10*3/uL 1.88-7.09 (test code = 1768389288) IMM GRAN x10^3 (test 0.05 10*3/uL 0.00-0.06 code = 1848889207) LYMPH x10^3 (test code 0.86 10*3/uL 1.32-3.29 L = 731-0) MONO x10^3 (test code 0.41 10*3/uL 0.33-0.92 = 742-7) EOS x10^3 (test code = 0.21 10*3/uL 0.03-0.39 711-2) BASO x10^3 (test code 0.01-0.07 = 704-7) Lab Interpretation Abnormal (test code = 74382-4) [facility] WITH [id number] 19:35:25 Test Item Value Reference Range Interpretation Comments WBC (test code = 4.36 See_Comment [Automated 6690-2) message] The sy stem which generated this result transmitted reference range : 4.30 - 11.10 10*3/?L. The reference range was not used to interpret this result as normal/abnormal . RBC (test code = 3.83 See_Comment L [Automated 789-8) message] The sy stem which generated this result transmitted reference range : 3.93 - 5.25 10*6/?L. The reference range was not used to interpret this result as normal/abnormal . HGB (test code = 9.9 g/dL 11.6-15.0 L 718-7) HCT (test code = 33.7 % 35.7-45.2 L 4544-3) MCV (test code = 88.0 fL 80.6-95.5 787-2) MCH (test code = 25.8 pg 25.9-32.8 L 785-6) MCHC (test code = 29.4 g/dL 31.6-35.1 L 786-4) RDW-SD (test code = 50.1 fL 39.0-49.9 H 79795-5) RDW-CV (test code = 15.7 % 12.0-15.5 H 788-0) PLT (test code = 112 See_Comment L [Automated 777-3) message] The sy stem which generated this result transmitted reference range : 166 - 358 10*3/ ?L. The reference r abbey was not used to interpret this result as normal/abnormal . MPV (test code = 9.7 fL 9.5-12.9 12756-3) NRBC/100 WBC (test 0.0 See_Comment [Automat ed code = 6953568711) message] The system which generated this result transmitted reference range : 0.0 - 10.0 /100 WBCs. The refer ence range was not u sed to interpret th is result as normal/abnormal . NRBC x10^3 (test code See_Comment [Auto mated = 0328387816) message] The s ystem which generated this result transmitted reference range : 10*3/?L. The reference range was not used to interpret this result as normal/abnormal . GRAN MAT (NEUT) % 72.1 % (test code = 770-8) IMM GRAN % (test code 0.20 % = 9285686773) LYMPH % (test code = 16.1 % 736-9) MONO % (test code = 10.3 % 5905-5) EOS % (test code = 1.1 % 713-8) BASO % (test code = 0.2 % 706-2) GRAN MAT x10^3(ANC) 3.14 10*3/uL 1.88-7.09 (test code = 3819719345) IMM GRAN x10^3 (test 0.00-0.06 code = 4399478131) LYMPH x10^3 (test code 0.70 10*3/uL 1.32-3.29 L = 731-0) MONO x10^3 (test code 0.45 10*3/uL 0.33-0.92 = 742-7) EOS x10^3 (test code = 0.05 10*3/uL 0.03-0.39 711-2) BASO x10^3 (test code 0.01-0.07 = 704-7) Lab Interpretation Abnormal (test code = 77562-2) [facility]. METABOLIC PANEL ([id number])2022-05-06 22:42:55 Test Item Value Reference Range Interpretation Comments NA (test code = 137 mmol/L 135-145 4922963346) K (test code = 3.2 mmol/L 3.5-5.0 L 5020186166) CL (test code = 100 mmol/L 98-108 6264843669) CO2 TOTAL (test code = 23 mmol/L 23-31 9694291195) AGAP (test code = 2-16 0036639102) BUN (test code = 41 mg/dL 7-23 H 9912655055) GLUCOSE (test code = 98 mg/dL 70-110 5934103940) CREATININE (test code = 1.55 mg/dL 0.50-1.04 H 8378674356) TOTAL BILI (test code = 0.8 mg/dL 0.1-1.3 2684345463) CALCIUM (test code = 8.3 mg/dL 8.6-10.6 L 4653882468) T PROTEIN (test code = 6.9 g/dL 6.3-8.2 8363475264) ALBUMIN (test code = 3.9 g/dL 3.5-5.0 3237866272) ALK PHOS (test code = 89 U/L 34-122 6506873923) ALTv (test code = 101 U/L 5-35 H 1742-6) AST(SGOT) (test code = 203 U/L 13-40 H 1650726783) eGFR (test code = mL/min/1.73m2 8897413407) KYLE (test code = KYLE) Association of [...] tests). Lab Interpretation Abnormal (test code = 95266-3) [facility] WITH [id number] 22:33:52 Test Item Value Reference Range Interpretation [...] RDW-SD (test code = 46.3 fL 39.0-49.9 57996-2) RDW-CV (test code = 13.5 % 12.0-15.5 788-0) PLT (test code = See_Comment L [Automated 777-3) message] The sy stem which generated this result transmitted reference range : 166 - 358 10*3/ ?L. The reference r abbey was not used to interpret this result as normal/abnormal . MPV (test code = 9.5 fL 9.5-12.9 18260-5) NRBC/100 WBC (test See_Comment [Automat ed code = 1152771966) message] The system which generated this result transmitted reference range : 0.0 - 10.0 /100 WBCs. The refer ence range was not u sed to interpret th is result as normal/abnormal . NRBC x10^3 (test code See_Comment [Auto mated = 1744239078) message] The s ystem which generated this result transmitted reference range : 10*3/?L. The reference range was not used to interpret this result as normal/abnormal . GRAN MAT (NEUT) % 58.3 % (test code = 770-8) IMM GRAN % (test code 0.80 % = 1391573775) LYMPH % (test code = 28.1 % 736-9) MONO % (test code = 12.0 % 5905-5) EOS % (test code = 0.5 % 713-8) BASO % (test code = 0.3 % 706-2) GRAN MAT x10^3(ANC) 2.29 10*3/uL 1.88-7.09 (test code = 6562523057) IMM GRAN x10^3 (test 0.03 10*3/uL 0.00-0.06 code = 6294149385) LYMPH x10^3 (test code 1.10 10*3/uL 1.32-3.29 L = 731-0) MONO x10^3 (test code 0.47 10*3/uL 0.33-0.92 = 742-7) EOS x10^3 (test code = 0.03-0.39 L 711-2) BASO x10^3 (test code 0.01-0.07 = 704-7) Lab Interpretation Abnormal (test code = 80364-5) [facility] METABOLIC PANEL (NA, K, CL, CO2, GLUCOSE, BUN, CREATININE, CA)2022-04-22 21:43:42 Test Item Value Reference Range Interpretation Comments NA (test code = 142 mmol/L 135-145 [id number]) K (test code = 3.5 mmol/L 3.5-5.0 4663236870) CL (test code = 106 mmol/L 98-108 6027130756) CO2 TOTAL (test code = 26 mmol/L 23-31 0288551686) AGAP (test code = 2-16 5318240886) BUN (test code = 29 mg/dL 7-23 H 7933112282) GLUCOSE (test code = 84 mg/dL 70-110 7382972134) CREATININE (test code = 1.16 mg/dL 0.50-1.04 H 0484074124) CALCIUM (test code = 8.2 mg/dL 8.6-10.6 L 8572900152) eGFR (test code = mL/min/1.73m2 5437996186) KYLE (test code = KYLE) Association of [...] tests). Lab Interpretation Abnormal (test code = 94993-7) [facility] WITH [id number] 21:33:01 Test Item Value Reference Range Interpretation Comments WBC (test code = See_Comment [Automated 9338-2) message] The sy stem which generated this result transmitted reference range : 4.30 - 11.10 10*3/?L. The reference range was not used to interpret this result as normal/abnormal . RBC (test code = See_Comment L [Automated 502-9) message] The sy stem which generated this [...] (test code = 50.7 fL 39.0-49.9 H 24005-3) RDW-CV (test code = 14.6 % 12.0-15.5 788-0) PLT (test code = See_Comment L [Automated 777-3) message] The sy stem which generated this result transmitted reference range : 166 - 358 10*3/ ?L. The reference r abbey was not used to interpret this result as normal/abnormal . MPV (test code = 8.8 fL 9.5-12.9 L 02994-5) NRBC/100 WBC (test See_Comment [Automat ed code = 1730221526) message] The system which generated this result transmitted reference range : 0.0 - 10.0 /100 WBCs. The refer ence range was not u sed to interpret th is result as normal/abnormal . NRBC x10^3 (test code See_Comment [Auto mated = 6074555639) message] The s ystem which generated this result transmitted reference range : 10*3/?L. The reference range was not used to interpret this result as normal/abnormal . GRAN MAT (NEUT) % 70.9 % (test code = 770-8) IMM GRAN % (test code 0.50 % = 9968594909) LYMPH % (test code = 17.4 % 736-9) MONO % (test code = 9.0 % 5905-5) EOS % (test code = 1.7 % 713-8) BASO % (test code = 0.5 % 706-2) GRAN MAT x10^3(ANC) 4.60 10*3/uL 1.88-7.09 (test code = 0076266686) IMM GRAN x10^3 (test 0.03 10*3/uL 0.00-0.06 code = 7267129354) LYMPH x10^3 (test code 1.13 10*3/uL 1.32-3.29 L = 731-0) MONO x10^3 (test code 0.58 10*3/uL 0.33-0.92 = 742-7) EOS x10^3 (test code = 0.11 10*3/uL 0.03-0.39 711-2) BASO x10^3 (test code 0.03 10*3/uL 0.01-0.07 = 704-7) Lab Interpretation Abnormal (test code = 29229-7) [facility] CULTURE [id number] 06:01:07 Test Item Value Reference Range Interpretation Comments Blood Culture-Aerobic No organisms No growth Previo us (test code = 06589-8) isolated prelim inary verified result was Culture [...] Culture-Anaerobic isolated preliminar y (test code = 84912-3) verifi ed result was Culture In Progress [...] CDT Lab Interpretation Normal (test code = 97466-9) [id number]07 Test Item Value Reference Range Interpretation Comments Blood Culture-Aerobic No organisms No growth Previo us (test code = 56312-3) isolated prelim inary verified result was Culture [...] Culture-Anaerobic isolated preliminar y (test code = 91297-3) verifi ed result was Culture In Progress [...] CDT Lab Interpretation Normal (test code = 07394-1) [facility] [id number] 06:01:07 Test Item Value Reference Range Interpretation Comments Blood Culture-Aerobic No organisms No growth Previo us (test code = 45883-2) isolated prelim inary verified result was Culture [...] Culture-Anaerobic isolated preliminar y (test code = 57107-2) verifi ed result was Culture In Progress [...] CDT Lab Interpretation Normal (test code = 83077-2) [facility] [id number] 10:49:10 Test Item Value Reference Range Interpretation Comments NT-proBNP (test code 2660 pg/mL See_Comment H [Autom ated = 2780880961) message] The system which generated this result transmitted reference range : <=125. The reference range was not used to interpret this result as normal/abnormal . KYLE (test code = KYLE) Biotin has been reported to cause a negative bias, interpret results relative to patient's use of biotin. Lab Interpretation Abnormal (test code = 53365-9) [facility] [id number] 10:49:10 Test Item Value Reference Range Interpretation Comments NT-proBNP (test code 2660 pg/mL See_Comment H [Autom ated = 7776532890) message] The system which generated this result transmitted reference range : <=125. The reference range was not used to interpret this result as normal/abnormal . KYLE (test code = KYLE) Biotin has been reported to cause a negative bias, interpret results relative to patient's use of biotin. Lab Interpretation Abnormal (test code = 17698-0) [facility]OL[facility] PAN[facility] (NA, K, CL, CO2, GLUCOSE, BUN, CREATININE, CA)2022-02-15 10:44:07 Test Item Value Reference Range Interpretation Comments NA (test code = 134 mmol/L 135-145 L 5776121577) K (test code = 3.2 mmol/L 3.5-5 L 7067625923) CL (test code = 98 mmol/L 98-108 7507415364) CO2 TOTAL (test code = 27 mmol/L 23-31 3091113266) AGAP (test code = 2-16 1778309112) BUN (test code = 19 mg/dL 7-23 5907172592) GLUCOSE (test code = 102 mg/dL 70-110 7209933425) CREATININE (test code = 0.95 mg/dL 0.5-1.04 6188415401) CALCIUM (test code = 8.5 mg/dL 8.6-10.6 L 6892862443) eGFR (test code = mL/min/1.73m2 9665486134) KYLE (test code = KYLE) Association of [...] tests). Lab Interpretation Abnormal (test code = 52563-1) [facility] Test Item Value Reference Range Interpretation Comments MAGNESIUM (test code = 8575491651) 1.8 mg/dL 1.7-2.4 Lab Interpretation (test code = Normal 95161-4) [facility]2022-09-26 10:44:07 Test Item Value Reference Range Interpretation Comments MAGNESIUM (test code = 3088540403) 1.8 mg/dL 1.7-2.4 Lab Interpretation (test code = Normal 10312-7) [facility] (NA, K, CL, CO2, GLUCOSE, BUN, CREATININE, CA)2022-02-15 10:44:07 Test Item Value Reference Range Interpretation Comments NA (test code = 134 mmol/L 135-145 L 6854131772) K (test code = 3.2 mmol/L 3.5-5.0 L 6386703827) CL (test code = 98 mmol/L 98-108 8963281108) CO2 TOTAL (test code = 27 mmol/L 23-31 6279257282) AGAP (test code = 2-16 2801759344) BUN (test code = 19 mg/dL 7-23 5410127863) GLUCOSE (test code = 102 mg/dL 70-110 1936727227) CREATININE (test code = 0.95 mg/dL 0.50-1.04 6507566385) CALCIUM (test code = 8.5 mg/dL 8.6-10.6 L 4088486666) eGFR (test code = mL/min/1.73m2 1663554584) KYLE (test code = KYLE) Association of [...] tests). Lab Interpretation Abnormal (test code = 71836-6) [facility] WITH [id number] 10:12:06 Test Item Value Reference Range Interpretation [...] RDW-SD (test code = 47.8 fL 39-49.9 06449-4) RDW-CV (test code = 15.2 % 12-15.5 788-0) PLT (test code = See_Comment L [Automated 777-3) message] The sy stem which generated this result transmitted reference range : 166 - 358 10*3/ ?L. The reference r abbey was not used to interpret this result as normal/abnormal . MPV (test code = 8.9 fL 9.5-12.9 L 66777-1) NRBC/100 WBC (test See_Comment [Automat ed code = 5662032201) message] The system which generated this result transmitted reference range : 0.0 - 10.0 /100 WBCs. The refer ence range was not u sed to interpret th is result as normal/abnormal . NRBC x10^3 (test code See_Comment [Auto mated = 7233423327) message] The s ystem which generated this result transmitted reference range : 10*3/?L. The reference range was not used to interpret this result as normal/abnormal . GRAN MAT (NEUT) % 65.9 % (test code = 770-8) IMM GRAN % (test code 0.30 % = 8312873724) LYMPH % (test code = 21.0 % 736-9) MONO % (test code = 10.1 % 5905-5) EOS % (test code = 2.4 % 713-8) BASO % (test code = 0.3 % 706-2) GRAN MAT x10^3(ANC) 2.49 10*3/uL 1.88-7.09 (test code = 6148021666) IMM GRAN x10^3 (test 0-0.06 code = 9358144640) LYMPH x10^3 (test code 0.79 10*3/uL 1.32-3.29 L = 731-0) MONO x10^3 (test code 0.38 10*3/uL 0.33-0.92 = 742-7) EOS x10^3 (test code = 0.09 10*3/uL 0.03-0.39 711-2) BASO x10^3 (test code 0.01-0.07 = 704-7) Lab Interpretation Abnormal (test code = 18679-0) [facility] WITH [id number] 10:12:06 Test Item Value Reference Range Interpretation [...] RDW-SD (test code = 47.8 fL 39.0-49.9 28194-0) RDW-CV (test code = 15.2 % 12.0-15.5 788-0) PLT (test code = See_Comment L [Automated 777-3) message] The sy stem which generated this result transmitted reference range : 166 - 358 10*3/ ?L. The reference r abbey was not used to interpret this result as normal/abnormal . MPV (test code = 8.9 fL 9.5-12.9 L 02955-4) NRBC/100 WBC (test See_Comment [Automat ed code = 4681172468) message] The system which generated this result transmitted reference range : 0.0 - 10.0 /100 WBCs. The refer ence range was not u sed to interpret th is result as normal/abnormal . NRBC x10^3 (test code See_Comment [Auto mated = 9748914192) message] The s ystem which generated this result transmitted reference range : 10*3/?L. The reference range was not used to interpret this result as normal/abnormal . GRAN MAT (NEUT) % 65.9 % (test code = 770-8) IMM GRAN % (test code 0.30 % = 5086364253) LYMPH % (test code = 21.0 % 736-9) MONO % (test code = 10.1 % 5905-5) EOS % (test code = 2.4 % 713-8) BASO % (test code = 0.3 % 706-2) GRAN MAT x10^3(ANC) 2.49 10*3/uL 1.88-7.09 (test code = 0785553665) IMM GRAN x10^3 (test 0.00-0.06 code = 3886479834) LYMPH x10^3 (test code 0.79 10*3/uL 1.32-3.29 L = 731-0) MONO x10^3 (test code 0.38 10*3/uL 0.33-0.92 = 742-7) EOS x10^3 (test code = 0.09 10*3/uL 0.03-0.39 711-2) BASO x10^3 (test code 0.01-0.07 = 704-7) Lab Interpretation Abnormal (test code = 44205-8) [facility] WITH [id number] 11:18:28 Test Item Value Reference Range Interpretation [...] RDW-SD (test code = 49.5 fL 39-49.9 75573-0) RDW-CV (test code = 15.5 % 12-15.5 788-0) PLT (test code = See_Comment L [Automated 777-3) message] The sy stem which generated this result transmitted reference range : 166 - 358 10*3/ ?L. The reference r abbey was not used to interpret this result as normal/abnormal . MPV (test code = 11.4 fL 9.5-12.9 23788-6) IPF % (test code = 8.7 % 1.3-7.7 H Platelet count 4918450129) measured by fluorescence method. NRBC/100 WBC (test See_Comment [Automat ed code = 7017072817) message] The system which generated this result transmitted reference range : 0.0 - 10.0 /100 WBCs. The refer ence range was not u sed to interpret th is result as normal/abnormal . NRBC x10^3 (test code See_Comment [Auto mated = 2473681451) message] The s ystem which generated this result transmitted reference range : 10*3/?L. The reference range was not used to interpret this result as normal/abnormal . GRAN MAT (NEUT) % 62.0 % (test code = 770-8) IMM GRAN % (test code 0.80 % = 1148822102) LYMPH % (test code = 22.2 % 736-9) MONO % (test code = 9.6 % 5905-5) EOS % (test code = 5.1 % 713-8) BASO % (test code = 0.3 % 706-2) GRAN MAT x10^3(ANC) 2.21 10*3/uL 1.88-7.09 (test code = 8706340388) IMM GRAN x10^3 (test 0.03 10*3/uL 0-0.06 code = 5519220034) LYMPH x10^3 (test code 0.79 10*3/uL 1.32-3.29 L = 731-0) MONO x10^3 (test code 0.34 10*3/uL 0.33-0.92 = 742-7) EOS x10^3 (test code = 0.18 10*3/uL 0.03-0.39 711-2) BASO x10^3 (test code 0.01-0.07 = 704-7) POLYCHROMASIA (test 2+ See_Comment [Automa arpit code = 43929-3) message] The system which generated this result [...] . Lab Interpretation Abnormal (test code = 71882-9) [facility] METABOLIC PANEL (NA, K, CL, CO2, GLUCOSE, BUN, CREATININE, CA)2022-02-13 10:39:07 Test Item Value Reference Range Interpretation Comments NA (test code = 136 mmol/L 135-145 7863871999) K (test code = 4.1 mmol/L 3.5-5 9698919573) CL (test code = 102 mmol/L 98-108 5047306507) CO2 TOTAL (test code = 27 mmol/L 23-31 4075851889) AGAP (test code = 2-16 3979959342) BUN (test code = 22 mg/dL 7-23 5926587616) GLUCOSE (test code = 94 mg/dL 70-110 2875374413) CREATININE (test code = 0.94 mg/dL 0.5-1.04 7012447944) CALCIUM (test code = 8.1 mg/dL 8.6-10.6 L 0092669068) eGFR (test code = mL/min/1.73m2 2743650375) KYLE (test code = KYLE) Association of [...] tests). Lab Interpretation Abnormal (test code = 78624-7) [facility]an[facility] ([facility]E)2022-02-12 01:50:10 Test Item Value Reference Range Interpretation Comments Height (test code = in 7601972213) Weight (test code = lbs 6029392394) Systolic BP (test code mmHg = 2540136186) Diastolic BP (test code mmHg = 5873236278) Heart Rate (test code = bpm 4723130278) BSA (test code = 1.85 m2 3340232985) IVS (test code = 1.22 cm 7411245629) Interventricular Septum 1.22 cm Diastolic Thickness by 2D (test code = 3953371) LVIDD (test code = 5.00 cm 8588393665) Left Ventricular End 117.9 mL Diastolic Volume by Teichholz Method (test code = 3802094) LVPWD (test code = 1.22 cm 0861059207) PW (test code = 1.22 cm 0.6-1.0 0983362467) EF(Teich) (test code = 74.60 % 7953463846) LVIDS (test code = 2.80 cm 6369557570) Left Ventricular End 29.9 mL Systolic Volume by Teichholz Method (test code = 6351970) FS (test code = 44 % 6471306205) EF - 2D (test code = 74.60 % 61353494) LVOT diameter (test 2.16 cm code = 9713928000) LVOT area (test code = 3.70 cm2 0486809080) Ao root diam (test code 3.40 cm = 8873171140) Aortic root (test code 3.4 cm = 5369044414) Ao root annulus (test 3.4 cm code = 8329366041) LA size (test code = 3.4 cm 2264162082) TR Peak Spencer (test code 330.0 cm/s = 6601401723) Triscuspid Valve mmHg Regurgitation Peak Gradient (test code = 0987103308) PV REGURGITATION PEAK mmHg GRADIENT (test code = 7669066515) PI dec slope (test code 137.20 cm/s2 = 2069822957) LAV(MOD-sp4) (test code 102.90 mL = 1555543071) MV Peak E Spencer (test 84.1 cm/s code = 0895544932) MV Peak A Spencer (test 40.1 cm/s code = 8091079032) E/A ratio (test code = ratio 3079412737) MV valve area p 1/2 3.70 cm2 method (test code = 6427095845) MV dec slope (test code 413.00 cm/s2 = 0112440611) MV P1/2t max spencer (test 83.70 cm/s code = 5328505999) MV Prop V (test code = 41.80 cm/s 1346574305) Tapse (test code = 1.83 cm 0292890899) LVOT stroke volume 96.90 cm3 (test code = 4509069084) LVOT peak spencer (test 125.5 cm/s code = 6838177182) LVOT mn grad (test code mmHg = 7860685488) AV LVOT peak gradient mmHg (test code = 1376450931) LVOT peak VTI (test 26.4 cm code = 5498064027) LV V1 mean (test code = 78.10 cm/s 9776664643) Aortic valve mean 103.7 cm/s velocity (test code = 6555349742) Ao peak spencer (test code 165.6 cm/s = 5868520778) Ao VTI (test code = 37.2 cm 9464209527) AV area by cont VTI 2.6 cm2 (test code = 7006653923) AV area peak spencer (test 2.8 cm2 code = 9654164233) Ao max PG (test code = 11.00 mm[Hg] 9443264724) AV peak gradient (test mmHg code = 8261955626) AV valve area (test 2.60 cm2 code = 4312139613) AV mean gradient (test mmHg code = 8393530889) LA Volume Index (BP) 55.2 mL/m2 (test code = 9608161001) LA volume (BP) (test 102.1 mL code = 7821742373) LAV(MOD-sp2) (test code 86.10 mL = 5241292359) A2C EF (test code = 61.20 % 2381424113) EF(sp2-el) (test code = 61.60 % 2126161117) SV(MOD-sp2) (test code 47.10 mL = 5682640483) LV Diastolic Volume 70.7 mL (BP) (test code = 0864547157) A4C EF (test code = 53.00 % 1062064103) EF(MOD-bp) (test code = 56.70 % 1450886635) EF(sp4-el) (test code = 53.90 % 2119437255) LV Systolic Volume (BP) 30.6 mL (test code = 6640423022) SV(MOD-bp) (test code = 40.10 mL 4029334920) SV(MOD-sp4) (test code 32.40 mL = 9953117032) SV(sp4-el) (test code = 33.10 mL 6357380090) EF (test code = 4760146268) Left Ventricular Stroke 40.1 mL Volume by 2-D Biplane-MOD (test code = 5582703) LV Diastolic Volume 38.2 mL/m2 Index (BP) (test code = 9705200714) LV Systolic Volume 16.5 mL/m2 Index (BP) (test code = 9374984360) Radiology Study observation (narrative) (test code = 57671-5) KYLE (test code = KYLE) ?Left?Ventricle: Left [...] left ventricular wall motion is normal. [facility] CenterTROP[facility] [id number] 05:45:01 Test Item Value Reference Interpretation Comments Range TROPONIN I (test See_Comment [Automated code = 9903006915) message] The system which generated this result [...] biotin. Lab Interpretation Normal (test code = 24457-2) [facility] Center[facility]MINAL [id number] 05:41:40 Test Item Value Reference Range Interpretation Comments NT-proBNP (test code 4250 pg/mL See_Comment H [Autom ated = 4132930903) message] The system which generated this result transmitted reference range : <=125. The reference range was not used to interpret this result as normal/abnormal . KYLE (test code = KYLE) Biotin has been reported to cause a negative bias, interpret results relative to patient's use of biotin. Lab Interpretation Abnormal (test code = 78253-1) [facility] CenterACTIVATED PARTIAL THRMPLAS [id number] 05:35:21 Test Item Value Reference Range Interpretation [...] seconds. Lab Interpretation Normal (test code = 75975-2) [facility] Center[facility]IV[facility] PARTIAL THRMPLAS [id number] 05:35:21 Test Item Value Reference Range Interpretation [...] seconds. Lab Interpretation Normal (test code = 84978-0) [facility] CenterPROTHROMBIN TIME / [id number] 05:33:21 Test Item Value Reference Range Interpretation [...] tions. Lab Interpretation (test Normal code = 68783-6) [facility] CenterCOMP. METABOLIC PANEL (15433)2022-02-11 05:33:21 Test Item Value Reference Range Interpretation Comments NA (test code = 137 mmol/L 135-145 0479603854) K (test code = 4.3 mmol/L 3.5-5 7101820825) CL (test code = 103 mmol/L 98-108 5910897243) CO2 TOTAL (test code = 25 mmol/L 23-31 9606459453) AGAP (test code = 2-16 1257321908) BUN (test code = 19 mg/dL 7-23 5288702854) GLUCOSE (test code = 120 mg/dL 70-110 H 0967301320) CREATININE (test code = 1.15 mg/dL 0.5-1.04 H 0113565529) TOTAL BILI (test code = 0.9 mg/dL 0.1-1.7 3388980881) CALCIUM (test code = 8.9 mg/dL 8.6-10.6 9095553612) T PROTEIN (test code = 6.6 g/dL 6.3-8.2 2147709677) ALBUMIN (test code = 4.0 g/dL 3.5-5 0084439579) ALK PHOS (test code = 73 U/L 34-122 1563925322) ALTv (test code = 18 U/L 5-35 2-6) AST(SGOT) (test code = 31 U/L 13-40 3498047754) eGFR (test code = mL/min/1.73m2 4539444873) KYLE (test code = KYLE) Association of [...] tests). Lab Interpretation Abnormal (test code = 09463-0) [facility]. METABOLIC PANEL (47111)2022-02-11 05:33:21 Test Item Value Reference Range Interpretation Comments NA (test code = 137 mmol/L 135-145 8213690688) K (test code = 4.3 mmol/L 3.5-5.0 9782143447) CL (test code = 103 mmol/L 98-108 0509969928) CO2 TOTAL (test code = 25 mmol/L 23-31 0807500428) AGAP (test code = 2-16 9186566125) BUN (test code = 19 mg/dL 7-23 4884358209) GLUCOSE (test code = 120 mg/dL 70-110 H 3718708019) CREATININE (test code = 1.15 mg/dL 0.50-1.04 H 3547841734) TOTAL BILI (test code = 0.9 mg/dL 0.1-1.2 9596142386) CALCIUM (test code = 8.9 mg/dL 8.6-10.6 4785879308) T PROTEIN (test code = 6.6 g/dL 6.3-8.2 6112237429) ALBUMIN (test code = 4.0 g/dL 3.5-5.0 1209710876) ALK PHOS (test code = 73 U/L 34-122 2847152560) ALTv (test code = 18 U/L 5-35 1742-6) AST(SGOT) (test code = 31 U/L 13-40 7146971553) eGFR (test code = mL/min/1.73m2 7807799295) KYLE (test code = KYLE) Association of [...] tests). Lab Interpretation Abnormal (test code = 30500-4) [facility] CenterPROTHROMBIN TIME / [id number] 05:33:21 Test Item Value Reference Range Interpretation Comments PROTIME PATIENT (test See_Comment [Auto mated message] code = 5964-2) The system [employer] ich generated this result transmitted ref erence range: 12.0 - 1 4.7 Seconds. The re ference range was not u sed to interpret this result as normal/abnor mal. INR (test code = 6301-6) Nor mal INR <1.1; Warfarin Therap eutic range 2.0 to 3. 0 or 2.5 to 3.5, dep ending upon the indica tions. Lab Interpretation (test Normal code = 40607-4) [facility] CenterCB WITH [id number] 05:14:37 Test Item Value Reference Range Interpretation Comments WBC (test code = See_Comment [Automated 8490-2) message] The sy stem which generated this [...] RDW-SD (test code = 47.9 fL 39-49.9 41986-7) RDW-CV (test code = 14.9 % 12-15.5 788-0) PLT (test code = See_Comment L [Automated 777-3) message] The sy stem which generated this result transmitted reference range : 166 - 358 10*3/ ?L. The reference r abbey was not used to interpret this result as normal/abnormal . MPV (test code = 9.1 fL 9.5-12.9 L 31342-7) NRBC/100 WBC (test See_Comment [Automat ed code = 0033508079) message] The system which generated this result transmitted reference range : 0.0 - 10.0 /100 WBCs. The refer ence range was not u sed to interpret th is result as normal/abnormal . NRBC x10^3 (test code See_Comment [Auto mated = 7377706840) message] The s ystem which generated this result transmitted reference range : 10*3/?L. The reference range was not used to interpret this result as normal/abnormal . GRAN MAT (NEUT) % 78.5 % (test code = 770-8) IMM GRAN % (test code 0.20 % = 1557335647) LYMPH % (test code = 11.6 % 736-9) MONO % (test code = 8.4 % 5905-5) EOS % (test code = 1.1 % 713-8) BASO % (test code = 0.2 % 706-2) GRAN MAT x10^3(ANC) 3.45 10*3/uL 1.88-7.09 (test code = 3631283783) IMM GRAN x10^3 (test 0-0.06 code = 9075902440) LYMPH x10^3 (test code 0.51 10*3/uL 1.32-3.29 L = 731-0) MONO x10^3 (test code 0.37 10*3/uL 0.33-0.92 = 742-7) EOS x10^3 (test code = 0.05 10*3/uL 0.03-0.39 711-2) BASO x10^3 (test code 0.01-0.07 = 704-7) Lab Interpretation Abnormal (test code = 91820-8) [facility] Coronavirus 2019 [id number] 18:08:00 Test Item Value Reference Range Interpretation [...] det ection of nucleic acids f rom pmdFFAT-AiU-9 v irus and diagnosis of SA RS-CoV-2 virusinfection. It is an Emergency Use Authorization ( EUA) testauthorized by the U.S. FDA. BASIC METABOLIC [id number] 09:37:00 Test Item Value Reference Range Interpretation [...] = 9.0 mg/dL 8.0-10.5 N CA) PROTHROMBIN [id number] 09:32:00 Test Item Value Reference Range Interpretation [...] (to prevent recurrent infar ct). 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 [facility] - XR CHEST 1 [id number] 00:00:00 [facility] 1955 Sex: F FAX: RobinJasmeetUrmilalinda Danielandenis Peterson DO [phone] [place]: St: ADM FAX: Mike Scales MD [phone] FAX: Bahman Chopra [phone] Name: LIO WATTS [facility] : 1955 Age/S: 66/F [address] [place] [address] Blvd Unit #: [id number] Loc: [place] [address] Phys: Bahman Chopra [facility] Acct: [id number] Dis Date: Status: ADM IN PHONE #: [phone] Exam Date: 06/17/2021 1320 FAX #: [phone] Reason: WATCHMAN EXAMS: CPT CODE: [id number] XR CHEST 1 V 94771 PROCEDURE INFORMATION: Exam: XR Chest Exam date [...] Chopra Technologist: RT Taylor(Marika) Trnscrd Date/Time/By: 06/17/2021 (6278) : By: Susanna Orig Print D/T: S: 06/17/2021 (1427) PAGE 1 Signed ReportCOVID 19 Asymptomatic IH [id number] 12:29:00 Test Item Value Reference Range Interpretation [...] high or waivedcomplexit y tests. BASIC METABOLIC [id number] 11:37:00 Test Item Value Reference Range Interpretation [...] code = 9.0 mg/dL 8.0-10.5 N CA) [id number] 11:37:00 Test Item Value Reference Range Interpretation Comments PREALBUMIN (test code = PREALB) 24.3 mg/dL 16.0-40.0 N PROTHROMBIN [id number] 11:03:00 Test Item Value Reference Range Interpretation [...] (to prevent recurrent infar ct). CBC W/AUTO [id number] 10:59:00 Test Item Value Reference Range Interpretation [...] 0.0-0.1 N NRBC#) - XR CHEST 2 [id number] 00:00:00 [facility]: LIO WATTS : 1955 Sex: F FAX: Carmenza Kelly DO [phone] [place]: St: PRE FAX: Mike Scales MD [phone] Name: LIO WATTS : 1955 Age/S: 66/F [address] [place] [address] Unit #: [id number] Loc: [place], [place] [address]Xlxg: Mike Lund MD Acct: [id number] Dis Date: Status: PRE SDC PHONE #: [phone] Exam Date: 06/16/2021 1120 FAX #: [phone] Reason: PREOP EXAMS: CPT CODE: [id number] XR CHEST 2 V 45540 PROCEDURE INFORMATION: Exam: XR Chest Exam date [...] Technologist: Danielle Nix RT(R) Trnscrd Date/Time/By: 06/16/2021 (7893) : By: [email or web address] Orig Print D/T: S: 06/16/2021 (3002) PAGE 1 Signed ReportGastrointestinal [id number] 04:35:05 Test Item Value Reference Interpretation Comments [...] Rotavirus PCR (test Not Detected code = 5551682) Salmonella PCR (test Not Detected code = [...] PCR Not Detected (test code = 7124) [facility] medekmd1974-80-72 19:30:47 Test Item Value Reference Range Interpretation Comments Case number (test [id number] code = 1290582) Surgical pathology See link below for PDF report (test code = Lab Report 2255) Result status (test This is Supplemental code = 7533563) Report for [id number] [facility]dpafglhAJJTPUVQQR7913-52-02 16:31:00 Test Item Value Reference Range Interpretation Comments POC Activated Clotting Time (test code 153 s = POC Activated Clotting Time) [facility]ogqrpyWHPMIDICEY1765-97-49 16:31:00 Test Item Value Reference Range Interpretation Comments POC Activated Clotting Time (test code 153 s = POC Activated Clotting Time) [facility]entonXixevmuAPOJMDYGBI4670-24-33 16:31:00 Test Item Value Reference Range Interpretation Comments POC Activated Clotting Time (test code 153 s = POC Activated Clotting Time) [facility]entonLoztriuGEBYVCCCGK2957-61-88 16:31:00 Test Item Value Reference Range Interpretation Comments POC Activated Clotting Time (test code 153 s = POC Activated Clotting Time) [facility]entonMuuiugmDLSAJGLLJE8355-16-69 16:31:00 Test Item Value Reference Range Interpretation Comments POC Activated Clotting Time (test code 153 s = POC Activated Clotting Time) [facility]entonIvcnsfmJDAKDNKBKE5884-47-51 16:31:00 Test Item Value Reference Range Interpretation Comments POC Activated Clotting Time (test code 153 s = POC Activated Clotting Time) [facility]entonYozxcubQZGLLPUBBI4854-03-86 16:31:00 Test Item Value Reference Range Interpretation Comments POC Activated Clotting Time (test code 153 s = POC Activated Clotting Time) [facility]entonGzamjcvKDSBWWNNIL4274-21-51 14:37:00 Test Item Value Reference Range Interpretation Comments POC Activated Clotting Time (test code 454 s = POC Activated Clotting Time) [facility]entonXvixwxvJJTRSGZSGL6998-53-40 14:37:00 Test Item Value Reference Range Interpretation Comments POC Activated Clotting Time (test code 454 s = POC Activated Clotting Time) [facility]entonMipbodwLZYSSPMVFV4682-16-54 14:37:00 Test Item Value Reference Range Interpretation Comments POC Activated Clotting Time (test code 454 s = POC Activated Clotting Time) [facility]entonYebneieEIPDEUYWJI8791-10-83 14:37:00 Test Item Value Reference Range Interpretation Comments POC Activated Clotting Time (test code 454 s = POC Activated Clotting Time) [facility]entonAkngdnbLRTLFAORAM2302-04-93 14:37:00 Test Item Value Reference Range Interpretation Comments POC Activated Clotting Time (test code 454 s = POC Activated Clotting Time) [facility]entonRpcmuqqUKPFDHLYYD1828-22-49 14:37:00 Test Item Value Reference Range Interpretation Comments POC Activated Clotting Time (test code 454 s = POC Activated Clotting Time) [facility]entonLnlsehfSRKAMAZWGS4925-95-28 14:37:00 Test Item Value Reference Range Interpretation Comments POC Activated Clotting Time (test code 454 s = POC Activated Clotting Time) [facility]entonIqfcidaDAJDPLCGPR5012-23-40 14:13:00 Test Item Value Reference Range Interpretation Comments POC Activated Clotting Time (test code 354 s = POC Activated Clotting Time) [facility]entonUhdofnsHVXFSQJSBD5107-22-56 14:13:00 Test Item Value Reference Range Interpretation Comments POC Activated Clotting Time (test code 354 s = POC Activated Clotting Time) [facility]entonJgrwzngITNDXZEUKQ1003-11-78 14:13:00 Test Item Value Reference Range Interpretation Comments POC Activated Clotting Time (test code 354 s = POC Activated Clotting Time) [facility] CenterJvrwtpsXTABTSHPBY3582-19-74 14:13:00 Test Item Value Reference Range Interpretation Comments POC Activated Clotting Time (test code 354 s = POC Activated Clotting Time) [facility] CenterIlijvfoWRQCUKICIR3859-33-66 14:13:00 Test Item Value Reference Range Interpretation Comments POC Activated Clotting Time (test code 354 s = POC Activated Clotting Time) [facility]OLPIXXVB4949[facility]87 14:13:00 Test Item Value Reference Range Interpretation Comments POC Activated Clotting Time (test code 354 s = POC Activated Clotting Time) [facility]wcernrGUFWSXWGFL9199-55-94 14:13:00 Test Item Value Reference Range Interpretation Comments POC Activated Clotting Time (test code 354 s = POC Activated Clotting Time) [facility] SPPPIUM2667-33-78 10:37:00Negative (08/29/20 5:37 AM) [facility]annCHE[facility] MDJAN7300-24-62 10:37:08998Bvgxghbg HermannCHEM PANEL 2020-08-29 10:37:0028[facility]annCHEM LOYJJ3404-76-18 10:37:001.01[facility]annCHEM SRDJI1303-48-04 10:37:35839Gclnjwta [facility]annCHE[facility] YNTNB5567-68-78 10:37:003.8[facility]annCHEM BHUEV5633-41-23 10:37:25627Agsxvdsn HermannCHEM SXYIG2644-41-61 10:37:0028[facility] HermannCHEM OKABW9695-44-69 10:37:009.8 [facility]annCHE[facility] PTAMV4879-91-79 10:37:0011.8[facility] HermannCHEM PANEL 2020-08-29 10:37:0059[facility]annCHEM QYGJY7193-26-66 10:37:002.9[facility] HrpeeeiPZAIEVEPGX8183-16-80 10:37:006.8[facility] CvmsddrVATHDHAOCR3177-37-11 10:37:004.47[facility] DwehwcbOXMMNIECNK2956-55-02 10:37:0010.6[facility] PJHERBDLBX6647-44-59 10:37:0034.0[facility] RmioxfiHMNANOYTKK1530-79-26 10:37:00 76.1[facility] UkjfwrrIEMNNSUAMX0223-09-88 10:37:00 Test Item Value Reference Range Interpretation Comments MCH (test code = MCH) 23.8 pg 27.0-31.0 [facility] GnkastfGJTHTULIIA7541-67-42 10:37:0031.3[facility] HermannHEMATOLOGY 2020-08-29 10:37:0018.2[facility] FeigwrxWVZMAGCYYN4937-32-76 10:37:53249Ferdvfei TxahxozWTMFVTTZCS7076-25-36 10:37:007.5[facility] XskajszLVLAHLDZPP6998-89-13 10:37:00 Test Item Value Reference Range Interpretation Comments PT (test code = PT) 12.8 s 12.0-14.7 [facility] NfvgnnnPAWHJPMLVE6055-18-88 10:37:00 Test Item Value Reference Range Interpretation Comments INR (test code = INR) 0.97 1 0.85-1.17 [facility] XhcbnxaNBQMXRGHZV4957-80-50 10:37:00 Test Item Value Reference Range Interpretation Comments PTT (test code = PTT) 25.0 s 22.9-35.8 [facility] GdvqxucETHTPIQGTS3937-08-93 10:37:0070.5[facility] HermannHEMATOLOGY 2020-08-29 10:37:0018.8[facility] KixsggoQQGHAATSUT5070-08-76 10:37:009.5[facility] ZbkytkwEGEMSVNXBM9836-58-54 10:37:000.9[facility] NjrvprcBMHPFRPKZK0003-74-75 10:37:000.3[facility] YacrmhmGEFOIOBKIM9115-74-98 10:37:004.8[facility] UAEFMIZHXG5230-50-20 10:37:001.3[facility] ZynzxwmASVNYWXCBP6660-84-90 10:37:000.6 [facility] JainszfLMKOUNZGJL3053-19-29 10:37:000.1[facility] HermannHEMATOLOGY 2020-08-29 10:37:001+ *ABN*(08/29/20 5:37 AM)[facility] XeuurfoBZXURWJJXY7454-82-37 10:37:00Not Detected (08/29/20 5:37 AM)[facility]annBLOOD BANK RESULTS 2020-08-29 10:37:00Negative (08/29/20 5:37 AM)[facility]annCHEM LPMEY4587-87-68 10:37:54858Jlzoeijy HermannCHEM ZCLJC0382-79-87 10:37:0028[facility] HermannCHEM NTHNJ1848-86-19 10:37:001.01[facility]annCHEM ZYXGG3668-97-27 10:37:04946 [facility]annCHE[facility] IBKSQ0066-17-03 10:37:003.8[facility] HermannCHEM PANEL 2020-08-29 10:37:20988Xhvbzqfx HermannCHEM EWXRP4047-61-11 10:37:0028[facility]annCHEM NTOAH8710-13-80 10:37:009.8[facility]annCHEM RTYFE0271-44-95 10:37:0011.8[facility]annCHEM QSNYB3099-54-85 10:37:0059[facility]annCHEM GBHLO5395-54-47 10:37:002.9[facility] DifzbjsTGHRVXQSXT5152-96-49 10:37:006.8 [facility] IervyglYBYTVQKAFO9712-35-91 10:37:004.47[facility] HermannHEMATOLOGY 2020-08-29 10:37:0010.6[facility] WrzubhfMQODIRDABS2279-85-81 10:37:0034.0[facility] StvomwmPJZKUVYGGV8832-73-05 10:37:0076.1[facility] IfbbpxkXNIWKXYBNR3341-96-27 10:37:00 Test Item Value Reference Range Interpretation Comments MCH (test code = MCH) 23.8 pg 27.0-31.0 [facility] WrunjxrXVEWNIJGWU3735-82-58 10:37:0031.3[facility] HermannHEMATOLOGY 2020-08-29 10:37:0018.2[facility] ZnsjgseGXUMEPIFWV6366-22-99 10:37:59089Qzgtfers ElywulbWNPFEQZSJD4741-03-47 10:37:007.5[facility] NuukthuSVZIEHZAJR0608-32-64 10:37:00 Test Item Value Reference Range Interpretation Comments PT (test code = PT) 12.8 s 12.0-14.7 [facility] LazklpaOTADSYUGRP3526-27-42 10:37:00 Test Item Value Reference Range Interpretation Comments INR (test code = INR) 0.97 1 0.85-1.17 [facility] GogfwvdVZZHGGRJCF3630-42-87 10:37:00 Test Item Value Reference Range Interpretation Comments PTT (test code = PTT) 25.0 s 22.9-35.8 [facility] SnhublmOSOVJLRYUJ4904-19-67 10:37:0070.5[facility] HermannHEMATOLOGY 2020-08-29 10:37:0018.8[facility] EuzuavkQCJMCYJKPK8551-63-70 10:37:009.5[facility] EyepvdrVYEHSKJFDJ7254-12-27 10:37:000.9[facility] LqkhhefQBQQWVQMWY0271-96-38 10:37:000.3[facility] DjvowjeKIMLGLRPNN7045-93-52 10:37:004.8[facility] CANFNTDUCH2230-14-74 10:37:001.3[facility] AzlhtnlBBEGCPTZOG5238-13-21 10:37:000.6 [facility] AnzxbkkKYNHDKQKDN1284-01-82 10:37:000.1[facility] HermannHEMATOLOGY 2020-08-29 10:37:001+ *ABN*(08/29/20 5:37 AM)[facility] KivwbehLWBZBTTCYB1932-41-61 10:37:00Not Detected (08/29/20 5:37 AM)[facility]annBLOOD BANK RESULTS 2020-08-29 10:37:00Negative (08/29/20 5:37 AM)[facility]annCHEM WXDNA6109-07-18 10:37:24446Diqcvaih HermannCHEM JTUBY2452-05-93 10:37:0028[facility] HermannCHEM QCRTC9227-57-63 10:37:001.01[facility] HermannCHEM QBNXO8354-09-05 10:37:35867 [facility]annCHE[facility] BXINV6490-02-25 10:37:003.8[facility] HermannCHEM PANEL 2020-08-29 10:37:96834Ahtskjdj HermannCHEM QZAOV0373-83-55 10:37:0028[facility] HermannCHEM WRXNU3451-11-28 10:37:009.8[facility] HermannCHEM JZJJS7374-49-38 10:37:0011.8[facility] HermannCHEM ITLRT2539-72-78 10:37:0059[facility]annCHEM RVBXE8996-96-07 10:37:002.9[facility] GrlndjrKJWWPTOBVK5858-21-40 10:37:006.8 [facility] IeulwzpJQYRJHPCHM6238-97-15 10:37:004.47[facility]annHEMATOLOGY 2020-08-29 10:37:0010.6[facility] JrkzimsKLRCGHKKIB6954-39-58 10:37:0034.0[facility] TwahefaLVWSANTCSR7635-54-45 10:37:0076.1[facility] HqhuvowIVABVMUXSV3668-25-42 10:37:00 Test Item Value Reference Range Interpretation Comments MCH (test code = MCH) 23.8 pg 27.0-31.0 [facility] HbbupiqEVTNJITOSW0434-32-86 10:37:0031.3[facility] HermannHEMATOLOGY 2020-08-29 10:37:0018.2[facility] VgalgbyQNGGLTZDQH6151-44-78 10:37:56368Esptaweb SekzoahUJRCGSNRRJ8818-00-73 10:37:007.5[facility] KwegxdnSXQCVGLDTK9510-57-16 10:37:00 Test Item Value Reference Range Interpretation Comments PT (test code = PT) 12.8 s 12.0-14.7 [facility] WxndnztYQLGHYOFIN7350-24-37 10:37:00 Test Item Value Reference Range Interpretation Comments INR (test code = INR) 0.97 1 0.85-1.17 [facility] FjxwlbzGDSEIGOFDV8314-35-89 10:37:00 Test Item Value Reference Range Interpretation Comments PTT (test code = PTT) 25.0 s 22.9-35.8 [facility] WonbdjxOQZQQXRXSV6294-87-76 10:37:0070.5[facility] HermannHEMATOLOGY 2020-08-29 10:37:0018.8[facility] SvliwiqDFFGJMHHTQ2432-80-61 10:37:009.5[facility] PawxoqpTPRSTHVGMS2875-89-96 10:37:000.9[facility] EerfeptBMSDJZMJZN7838-81-76 10:37:000.3[facility] RwzgmdaQZCCUAJHXL8292-36-50 10:37:004.8[facility] TSTMRGYEMQ6513-02-65 10:37:001.3[facility] KdsfwktRZNXCSQEGM4034-34-12 10:37:000.6 [facility] RgwftriWQKCGPQAIJ7640-27-04 10:37:000.1[facility] HermannHEMATOLOGY 2020-08-29 10:37:001+ *ABN*(08/29/20 5:37 AM)[facility] RqlkyiuPGKBADWGPL3624-01-14 10:37:00Not Detected (08/29/20 5:37 AM)[facility] HermannBLOOD BANK RESULTS 2020-08-29 10:37:00Negative (08/29/20 5:37 AM)[facility] HermannCHEM TOIAM9818-58-74 10:37:36864Ukqtmzqm HermannCHEM HLNGD5665-24-24 10:37:0028[facility] HermannCHEM NLOXG1371-03-80 10:37:001.01[facility] HermannCHEM JKMLI0034-79-68 10:37:03559 [facility]annCHE[facility] VVETH1486-19-39 10:37:003.8[facility] HermannCHEM PANEL 2020-08-29 10:37:87180Fhsluagb HermannCHEM MTZEA2978-56-02 10:37:0028[facility] HermannCHEM LNNFP0952-27-18 10:37:009.8[facility] HermannCHEM PCWNF2356-20-76 10:37:0011.8[facility] HermannCHEM HCRAZ4577-12-77 10:37:0059[facility] HermannCHEM ZOYKO0163-63-47 10:37:002.9[facility] CqynjiiLXYJEIZYXW7244-21-50 10:37:006.8 [facility] McnikziEPOHMNWPGT6865-34-63 10:37:004.47[facility] HermannHEMATOLOGY 2020-08-29 10:37:0010.6[facility] RsuelhmKAVNOHRSSW3496-69-05 10:37:0034.0[facility] KiupmgkUMWMNLPWTZ7970-89-99 10:37:0076.1[facility] UzzhgddCABDWJYEYU7647-15-89 10:37:00 Test Item Value Reference Range Interpretation Comments MCH (test code = MCH) 23.8 pg 27.0-31.0 [facility] MpjmezuTQFBLJDHZN4722-73-35 10:37:0031.3[facility] HermannHEMATOLOGY 2020-08-29 10:37:0018.2[facility] DikjctmWEWJLRRGQS0920-57-91 10:37:51105Daoxutru ZtlttmxTJHQQAFPMT6965-86-98 10:37:007.5[facility] SoykscrNZDRQTSCMN6153-47-18 10:37:00 Test Item Value Reference Range Interpretation Comments PT (test code = PT) 12.8 s 12.0-14.7 [facility] LknvdgkTZGDIHKEIW7743-85-55 10:37:00 Test Item Value Reference Range Interpretation Comments INR (test code = INR) 0.97 1 0.85-1.17 [facility] JumucplHDZSKQYCLE3321-76-01 10:37:00 Test Item Value Reference Range Interpretation Comments PTT (test code = PTT) 25.0 s 22.9-35.8 [facility] KbikeybZQWHUPWGCM6826-69-16 10:37:0070.5[facility] HermannHEMATOLOGY 2020-08-29 10:37:0018.8[facility] OqhgbvxABHDUEHIKN8336-10-82 10:37:009.5[facility] EuazogxJRFMQEEFBD2455-35-50 10:37:000.9[facility] YcbeccnNAQYNULOUQ1735-68-39 10:37:000.3[facility] DwqpwxnKAPBPLAOEW0041-14-26 10:37:004.8[facility] BHIFLEKFWX9530-68-42 10:37:001.3[facility] UwebxsyWDWSIOJWRI5371-06-35 10:37:000.6 [facility] PmlgrsfQIYNFYXRES8927-83-82 10:37:000.1[facility] HermannHEMATOLOGY 2020-08-29 10:37:001+ *ABN*(08/29/20 5:37 AM)[facility] YmgsmfuIFFPKXQADD9169-22-69 10:37:00Not Detected (08/29/20 5:37 AM)[facility] HermannBLOOD BANK RESULTS 2020-08-29 10:37:00Negative (08/29/20 5:37 AM)[facility] HermannCHEM SDJHU0701-14-71 10:37:50025Tgcefgrg HermannCHEM JXAJU3893-73-45 10:37:0028[facility] HermannCHEM KFWLC7779-98-94 10:37:001.01[facility] HermannCHEM FUGUW4311-38-53 10:37:86994 [facility]annCHEM TLKEU7884-22-13 10:37:003.8[facility] HermannCHEM PANEL 2020-08-29 10:37:94168Epojodwx HermannCHEM CUNLF0032-11-36 10:37:0028[facility] HermannCHEM TOAEF1501-15-74 10:37:009.8[facility] HermannCHEM COHRC1682-59-59 10:37:0011.8[facility] HermannCHEM LWTSO0849-99-17 10:37:0059[facility] HermannCHEM EDNXH8241-33-44 10:37:002.9[facility] OrdvzpfYCOTGMYJGM9324-92-26 10:37:006.8 [facility] DgllyrmUYTJBQQKVB9673-05-34 10:37:004.47[facility] HermannHEMATOLOGY 2020-08-29 10:37:0010.6[facility] IdhwaddEOPFHAWCSZ2849-11-24 10:37:0034.0[facility] FxeirrlGOYWSSPEME8726-38-12 10:37:0076.1[facility] HjyuphhZQAZUVLNAH2116-46-17 10:37:00 Test Item Value Reference Range Interpretation Comments MCH (test code = MCH) 23.8 pg 27.0-31.0 [facility] WntryqyDGTUISTMQE5204-73-70 10:37:0031.3[facility] HermannHEMATOLOGY 2020-08-29 10:37:0018.2[facility] FngwgrzQUITVKXOID0362-81-43 10:37:32506Awqtuxyk VbkaknjLVRUDHKQPS7116-67-69 10:37:007.5[facility] LnzswppDYJZMICKYF4162-14-50 10:37:00 Test Item Value Reference Range Interpretation Comments PT (test code = PT) 12.8 s 12.0-14.7 [facility] SnbmfgsFGMHNCJOMN4590-22-71 10:37:00 Test Item Value Reference Range Interpretation Comments INR (test code = INR) 0.97 1 0.85-1.17 [facility] QxzvhuaQHQLDCAUAZ3558-49-72 10:37:00 Test Item Value Reference Range Interpretation Comments PTT (test code = PTT) 25.0 s 22.9-35.8 [facility] BfrpsqvCRSZCYXDXR7985-90-17 10:37:0070.5[facility] HermannHEMATOLOGY 2020-08-29 10:37:0018.8[facility] HkdtudkQPGOGQIUZR2620-03-90 10:37:009.5[facility] SaobivoPEXLTPXFXB6349-68-97 10:37:000.9[facility] CijnwwzNWNNWVJECK6294-81-14 10:37:000.3[facility] RxkhgorJSEPPIDSTP1876-95-82 10:37:004.8[facility] TNANLMNJXZ8338-82-99 10:37:001.3[facility] SlmidgnLEVAGCVDOQ8270-31-17 10:37:000.6 [facility] BgauguzSGZLCFMCGT3675-48-10 10:37:000.1[facility] HermannHEMATOLOGY 2020-08-29 10:37:001+ *ABN*(08/29/20 5:37 AM)[facility] RhtrdhjBINCLLZIIG6336-36-73 10:37:00Not Detected (08/29/20 5:37 AM)[facility] HermannBLOOD BANK RESULTS 2020-08-29 10:37:00Negative (08/29/20 5:37 AM)[facility] HermannCHEM TYMGM8303-26-07 10:37:66276Bnwncjcd HermannCHEM UZHLS4840-29-63 10:37:0028[facility] HermannCHEM XTCIF0389-30-33 10:37:001.01[facility] HermannCHEM JPVEJ1805-71-19 10:37:81027 [facility]annCHEM OEQVH8221-93-63 10:37:003.8[facility] HermannCHEM PANEL 2020-08-29 10:37:59468Kiyvtaqv HermannCHEM XPINI6420-59-83 10:37:0028[facility] HermannCHEM XWGXH8194-29-05 10:37:009.8[facility] HermannCHEM QWKBV7742-54-70 10:37:0011.8[facility] HermannCHEM FYBOJ5752-41-73 10:37:0059[facility] HermannCHEM WYWZY4495-03-83 10:37:002.9[facility] RucbwfbXYWTMLNRUG4227-40-52 10:37:006.8 [facility] HbhfcwiWAKBLEFSBH7956-99-79 10:37:004.47[facility] HermannHEMATOLOGY 2020-08-29 10:37:0010.6[facility] JdvvirqSPGOGYNWXK8393-21-39 10:37:0034.0[facility] VewvuoiCHNKOGKOSN3969-63-06 10:37:0076.1[facility] XtepybqJSKCOEYIEH0512-23-90 10:37:00 Test Item Value Reference Range Interpretation Comments MCH (test code = MCH) 23.8 pg 27.0-31.0 [facility] NttsrfrZZYMAMWTRE0670-14-21 10:37:0031.3[facility] HermannHEMATOLOGY 2020-08-29 10:37:0018.2[facility] DnrivbmBDTCRUVGGE0669-72-74 10:37:06625Uvasirxx ZzzzsnsQXRAOQYORE9563-80-95 10:37:007.5[facility] YsvptihWUFALAWIYK9290-44-56 10:37:00 Test Item Value Reference Range Interpretation Comments PT (test code = PT) 12.8 s 12.0-14.7 [facility] NibejcnYAVNWEIKYU6594-54-37 10:37:00 Test Item Value Reference Range Interpretation Comments INR (test code = INR) 0.97 1 0.85-1.17 [facility] RazckuaMCLSHJDVSK2410-42-83 10:37:00 Test Item Value Reference Range Interpretation Comments PTT (test code = PTT) 25.0 s 22.9-35.8 [facility] NtgibdjHSAERMSBQC9492-89-06 10:37:0070.5[facility] HermannHEMATOLOGY 2020-08-29 10:37:0018.8[facility] HwloazjXELQWRCSHX4620-96-36 10:37:009.5[facility] WvhixsoEWSINOSWJW3261-45-06 10:37:000.9[facility] CjqggwiLVZXEPVKGG6810-45-15 10:37:000.3[facility] WowlbafTYYSMKLGTJ3414-44-11 10:37:004.8[facility] VMTUOEBKPM3571-92-21 10:37:001.3[facility] HytijpuKHXLITDNBL3995-44-23 10:37:000.6 [facility] CgnnlacKNQQJTDGLH5472-70-12 10:37:000.1[facility] HermannHEMATOLOGY 2020-08-29 10:37:001+ *ABN*(08/29/20 5:37 AM)[facility] MhvilwpTNFODUFHTY5747-01-71 10:37:00Not Detected (08/29/20 5:37 AM)[facility] HermannBLOOD BANK RESULTS 2020-08-29 10:37:00Negative (08/29/20 5:37 AM)[facility] HermannCHEM WLMSK2303-62-34 10:37:90968Qhjdtqfp HermannCHEM SSYOG5601-67-36 10:37:0028[facility] HermannCHEM MQNTV9123-17-06 10:37:001.01[facility] HermannCHEM PGWNX6013-72-82 10:37:63769 [facility]annCHEM XSVWP1644-05-17 10:37:003.8[facility] HermannCHEM PANEL 2020-08-29 10:37:12084Ajjknkcf HermannCHEM GXMKQ4326-24-54 10:37:0028[facility] HermannCHEM FNLXV0821-91-35 10:37:009.8[facility] HermannCHEM WHPBZ7753-25-58 10:37:0011.8[facility] HermannCHEM MITNI9219-22-92 10:37:0059[facility] HermannCHEM WSVZA8817-40-52 10:37:002.9[facility] YzckyxmRTZDJNUVYN5574-84-45 10:37:006.8 [facility] PwzuqmhHKSSJRHOVF9959-79-45 10:37:004.47[facility]annHEMATOLOGY 2020-08-29 10:37:0010.6[facility] ZqdemgmGSXGFHVYVM1745-71-56 10:37:0034.0[facility] AnhrhoxDYOKLBQJQF9270-41-05 10:37:0076.1[facility] JxzzignVDOEGTIDRF6491-23-11 10:37:00 Test Item Value Reference Range Interpretation Comments MCH (test code = MCH) 23.8 pg 27.0-31.0 [facility] GsaibhiXYWTXONLMC2704-44-16 10:37:0031.3[facility] HermannHEMATOLOGY 2020-08-29 10:37:0018.2[facility] FiecgbxVNDLPUMWPQ9575-98-60 10:37:33643Vrrqjsed NciwqtiSRBMHQDLMF9242-98-41 10:37:007.5[facility] YyjikhoMEGZODMCOF3970-02-26 10:37:00 Test Item Value Reference Range Interpretation Comments PT (test code = PT) 12.8 s 12.0-14.7 [facility] LlqrmfyGWJYPOEWMQ9855-49-78 10:37:00 Test Item Value Reference Range Interpretation Comments INR (test code = INR) 0.97 1 0.85-1.17 [facility] VkybizoKWRPJBWTDD8905-72-79 10:37:00 Test Item Value Reference Range Interpretation Comments PTT (test code = PTT) 25.0 s 22.9-35.8 [facility] KnsknbsQMQHJSEYYF7819-22-21 10:37:0070.5[facility] HermannHEMATOLOGY 2020-08-29 10:37:0018.8[facility] SkeltrxZULCDNMIHD8545-19-38 10:37:009.5[facility] AbqzdfsHOWMPMFBDT7351-42-07 10:37:000.9[facility] YimncdaSOKEWWZREJ7934-99-54 10:37:000.3[facility] UokjxglXFPCXGQVOM1926-36-43 10:37:004.8[facility] SWCTDRTMPJ1848-88-37 10:37:001.3[facility] QrewwraMNGIQPBDVO1631-72-86 10:37:000.6 [facility] OkqosbuCIUVZRUWFT1106-74-40 10:37:000.1[facility] 2020-08-29 10:37:001+ *ABN*(08/29/20 5:37 AM)[facility] RdvzapnMQPDURNXUX1814-23-44 10:37:00Not Detected (08/29/20 5:37 AM)[facility] MartyCHLAMYDIA, GC, TV,PCR, IN [id number] 15:38:00 Test Item Value Reference Range Interpretation Comments FT (test code = CHTR) Not detected (qualifier Not Detected N value) FT (test code = Not detected (qualifier Not Detected N NGONO) value) FT (test code = TRVG) Not detected (qualifier Not Detected N value) [facility]AKSCABIF5029-75-66 10:57:00 Test Item Value Reference Range Interpretation Comments Color (test code = UCOLR) Dk. Yellow Clarity (test code = UCLAR) Hazy Glucose (test code = UGLUC) NEGATIVE NEGATIVE N Bilirubin (test code = UBILI) NEGATIVE NEGATIVE N Ketones (test code = UKET) NEGATIVE NEGATIVE N Specific Hoople (test code = 1.025 1.005-1.030 A USPGR) [...] = None Seen None Seen N URCRYS) [facility]
--- NOTE | 2023-03-25 16:00 | RAD REPORT ---
EXAM DESCRIPTION: Patrick Single View03/25/2023 3:43 pm CLINICAL HISTORY: Chest pain COMPARISON: February 20, 2023 FINDINGS: The lungs appear clear of acute infiltrate. The heart is moderately enlarged IMPRESSION: No acute abnormalities displayed
[2023-03-25 16:07] LABS: SARS-CoV-2 Antigen Rapid Res Negative (Negative)
[2023-03-25 17:42] LABS: Absolute Lymphocytes (CBC) 1.2 K/uL (0.7-4.9); Hematocrit 33.5 % (36.0-45.0); Lymphocytes % 20.9 % (15.3-44.8); MCV 79.9 fL (80-100); MPV 7.4 fL (7.6-11.3); Platelets 129 thou/uL (152-406)
[2023-03-25 17:54] LABS: Potassium 2.9 mEq/L (3.5-5.1); Troponin High Sensitivity 13.9 pg/mL (<58.9)
--- NOTE | 2023-03-25 18:10 | ER ---
Nurse's Notes [facility] Name: Marjan Kolb Age: 68 yrs Sex: Female : 1955 Arrival Date: 03/25/2023 Time: 15:04 Bed 17 Private MD: Diagnosis: Acute bronchitis, unspecified Presentation: 03/25 15:15 Chief complaint: Patient states: chest pain, wheezing, coughing started 3-4 days ago. eh3 Coronavirus screen: Vaccine status: Patient reports being unvaccinated. Ebola Screen: No symptoms or risks identified at this time. Initial Sepsis Screen: Does the patient meet any 2 criteria? No. Patient's initial sepsis screen is negative. Does the patient have a suspected source of infection? No. Patient's initial sepsis screen is negative. Risk Assessment: Do you want to hurt yourself or someone else? Patient reports no desire to harm self or others. Onset of symptoms was March 25, 2023. 15:15 Method Of Arrival: Ambulatory [facility] 15:15 Acuity: BLAYNE 3 eh3 Triage Assessment: 15:15 General: Appears in no apparent distress. uncomfortable, Behavior is calm, cooperative, eh3 appropriate for age. Pain: Complains of pain in chest. Neuro: Level of Consciousness is awake, alert, obeys commands, Oriented to person, place, time, situation. Cardiovascular: Capillary refill < 3 seconds Patient's skin is warm and dry. Respiratory: Reports shortness of breath at rest cough that is non-productive, Airway is patent Respiratory effort is even, unlabored, Respiratory pattern is regular, symmetrical. GI: Abdomen is round non-distended. Derm: Skin is pink, warm \T\ dry. Musculoskeletal: Circulation, motion, and sensation intact. Historical: - Allergies: 15:15 Azithromycin; eh3 15:15 Bactrim; 3 15:15 butorphanol; eh3 15:15 Fentanyl; eh3 15:15 Reglan; eh3 15:15 Sulfa (Sulfonamide Antibiotics); 3 15:15 TRIMETHOPRIM; eh3 - PMHx: 15:15 angina pectoris; Anxiety; Atrial fibrillation; Bipolar disorder; esophageal varicies; eh3 Hepatitis; HIV positive; Hypertensive disorder; Migraine; panic attack; - PSHx: 15:15 Appendectomy; Cholecystectomy; eh3 - Immunization history:: Adult Immunizations unknown. - Social history:: Smoking status: unknown. Screenin:15 [facility] ED Fall Risk Assessment (Adult) Score/Fall Risk Level 0 - 2 = Low Risk. Abuse eh3 screen: Denies threats or abuse. Denies injuries from another. Nutritional screening: No deficits noted. Tuberculosis screening: No symptoms or risk factors identified. Assessment: 15:15 Pain: Pain does not radiate. Pain began 2-3 days ago. eh3 Vital Signs: 15:15 BP 139 / 69; Pulse 59; Resp 16; Temp 98.7(O); Pulse Ox 96% on R/A; Weight 90.72 kg; eh3 Height 5 ft. 4 in. ; 16:15 BP 138 / 72; Pulse 57; Resp 16; Pulse Ox 96% on R/A; eh3 17:15 BP 138 / 63; Pulse 58; Resp 18; Pulse Ox 95% on R/A; eh3 18:15 BP 146 / 81; Pulse 54; Resp 16; Pulse Ox 97% on R/A; eh3 15:15 Body Mass Index 34.33 (90.72 kg, 162.56 cm) 3 ED Course: 15:07 Patient arrived in ED. mr 15:12 UmangcarrieMoiraKaren, [facility] 15:13 Ramon Baker MD is Attending Physician. [facility] 15:15 Arm band placed on. eh3 15:15 Patient has correct armband on for positive identification. Placed in gown. Bed in low eh3 position. Call light in reach. Side rails up X2. Provided Education on: use of call jimenez. Client placed on continuous cardiac and pulse oximetry monitoring. NIBP monitoring applied. 15:15 Patient maintains SpO2 saturation greater than 95% on room air. eh3 15:21 Yazmin Bennett, RN is Primary Nurse. eh3 15:23 Triage completed. eh3 15:45 XRAY Chest (1 view) In Process Unspecified. EDMS 15:51 Flu Sent. eh3 15:51 SARS RAPID Sent. eh3 18:41 No provider procedures requiring assistance completed. IV discontinued, intact, eh3 bleeding controlled, No redness/swelling at site. Pressure dressing applied. Administered Medications: 15:40 Drug: Aspirin PO Chewable Tablet 324 mg PO once; 81 mg tablets x 4 Route: PO; eh3 16:00 Follow up: Response: No adverse reaction [facility] 15:40 Drug: DuoNeb Nebulize (2.5 mg - 0.5 mg) 3 ml Nebulizer once Route: Nebulizer; 3 15:55 Follow up: Response: No adverse reaction [facility] 18:25 Drug: Acetaminophen PO 1000 mg PO once Route: PO; 3 18:40 Follow up: Response: Medication administered at discharge. 3 18:25 Drug: Potassium Chloride PO 40 mEq PO once Route: PO; 3 18:40 Follow up: Response: Medication administered at discharge. [facility] Medication: 18:40 VIS not applicable for this client. [facility] Outcome: 18:10 Discharge ordered by . [facility] 18:41 Discharged to home via wheelchair, [facility] 18:41 Condition: stable 18:41 Discharge instructions given to patient, Instructed on discharge instructions, follow up and referral plans. medication usage, Demonstrated understanding of instructions, follow-up care, medications, Prescriptions given X 3, 18:42 Patient left the ED. [facility] Signatures: Dispatcher [employer] EDJessie Jose, Dirk Reg Yazmin Fontaine, RN RN [facility] Karen Quintanilla, SCHOOL BUS AIDE SCHOOL BUS AIDE 7 Corrections: (The following items were deleted from the chart) 18:42 18:41 Discharge instructions given to patient, Instructed on discharge instructions, [facility] follow up and referral plans. medication usage, Demonstrated understanding of instructions, follow-up care, medications, Prescriptions given X 2, 3 21:01 15:15 Pain: Pain does not radiate. Pain began 1 day ago. 3 3
--- NOTE | 2023-03-25 18:10 | EDPHYS ---
Physician Documentation [facility] Name: Marjan Kolb Age: 68 yrs Sex: Female : 1955 Arrival Date: 03/25/2023 Time: 15:04 Bed 17 Private MD: ED Physician Ramon Baker HPI: 03/25 15:15 This 68 yrs old Female presents to ER via Ambulatory with complaints of Chest Pain. jh7 15:15 Onset: The symptoms/episode began/occurred 3 day(s) ago. jh7 15:15 Associated signs and symptoms: Pertinent positives: chest pain, congestion, cough, jh7 shortness of breath, Pertinent negatives: abdominal pain, fever, headache, sore throat. Historical: - Allergies: 15:15 Azithromycin; eh3 15:15 Bactrim; eh3 15:15 butorphanol; eh3 15:15 Fentanyl; eh3 15:15 Reglan; eh3 15:15 Sulfa (Sulfonamide Antibiotics); eh3 15:15 TRIMETHOPRIM; eh3 - PMHx: 15:15 angina pectoris; Anxiety; Atrial fibrillation; Bipolar disorder; esophageal varicies; eh3 Hepatitis; HIV positive; Hypertensive disorder; Migraine; panic attack; - PSHx: 15:15 Appendectomy; Cholecystectomy; eh3 - Immunization history:: Adult Immunizations unknown. - Social history:: Smoking status: unknown. ROS: 15:15 Constitutional: Negative for fever, chills, and weight loss, Eyes: Negative for injury, jh7 pain, redness, and discharge, Neck: Negative for injury, pain, and swelling, Abdomen/GI: Negative for abdominal pain, nausea, vomiting, diarrhea, and constipation, Back: Negative for injury and pain, MS/Extremity: Negative for injury and deformity, Skin: Negative for injury, rash, and discoloration, Neuro: Negative for headache, weakness, numbness, tingling, and seizure, 15:15 Cardiovascular: Positive for chest pain, with cough, 15:15 Respiratory: Positive for cough, wheezing, Negative for hemoptysis, 15:15 All other systems are negative, Exam: 15:15 Constitutional: This is a well developed, well nourished patient who is awake, alert, jh7 and in no acute distress. Head/Face: Normocephalic, atraumatic. ENT: Nares patent. No nasal discharge, no septal abnormalities noted. Tympanic membranes are normal and external auditory canals are clear. Oropharynx with no redness, swelling, or masses, exudates, or evidence of obstruction, uvula midline. Mucous membranes moist. Neck: Trachea midline, no thyromegaly or masses palpated, and no cervical lymphadenopathy. Supple, full range of motion without nuchal rigidity, or vertebral point tenderness. No Meningismus. Cardiovascular: Regular rate and rhythm with a normal S1 and S2. No gallops, murmurs, or rubs. Normal PMI, no JVD. No pulse deficits. Respiratory: Lungs have equal breath sounds bilaterally, clear to auscultation and percussion. No rales, rhonchi or wheezes noted. No increased work of breathing, no retractions or nasal flaring. Back: No spinal tenderness. No costovertebral tenderness. Full range of motion. Skin: Warm, dry with normal turgor. Normal color with no rashes, no lesions, and no evidence of cellulitis. MS/ Extremity: Pulses equal, no cyanosis. Neurovascular intact. Full, normal range of motion. Neuro: Awake and alert, GCS 15, oriented to person, place, time, and situation. Normal gait. Vital Signs: 15:15 BP 139 / 69; Pulse 59; Resp 16; Temp 98.7(O); Pulse Ox 96% on R/A; Weight 90.72 kg; 3 Height 5 ft. 4 in. ; 16:15 BP 138 / 72; Pulse 57; Resp 16; Pulse Ox 96% on R/A; 3 17:15 BP 138 / 63; Pulse 58; Resp 18; Pulse Ox 95% on R/A; 3 18:15 BP 146 / 81; Pulse 54; Resp 16; Pulse Ox 97% on R/A; 3 15:15 Body Mass Index 34.33 (90.72 kg, 162.56 cm) [facility] MDM: 15:13 Patient medically screened. [facility] 18:05 Differential diagnosis: viral Infection, bacterial infection, URI, bronchitis, [facility] pneumonia covid, flu. Data reviewed: vital signs, nurses notes, lab test result(s), EKG, radiologic studies, plain films. I considered the following discharge prescriptions or medication management in the emergency department Medications were administered in the Emergency Department. See MAR. Independent interpretation of the following test(s) in the Emergency Department EKG: See my EKG interpretation above X-Ray: My interpretation is no pneumonia. Care significantly affected by the following chronic conditions: HIV. Counseling: I had a detailed discussion with the patient and/or guardian regarding the historical points, exam findings, and any diagnostic results supporting the discharge/admit diagnosis, to return to the emergency department if symptoms worsen or persist or if there are any questions or concerns that arise at home. Response to treatment: the patient's symptoms have markedly improved after treatment. Special discussion: Informed the patient that occasionally steroids may be prescribed for bronchitis, but informed the patient that due to her HIV she is considered immunocompromised. The patient states that she understood that and that she had taken steroids before. Requested steroid pack. Discussed risk and benefits of steroids.. 03/25 15:18 Order name: Basic Metabolic Panel; Complete Time: 17:57 [facility] 03/25 15:18 Order name: CBC with Diff [facility] 03/25 15:18 Order name: NT PRO-BNP; Complete Time: 17:57 [facility] 03/25 15:18 Order name: Troponin HS; Complete Time: 17:57 [facility] 03/25 15:27 Order name: SARS RAPID; Complete Time: 16:11 [facility] 03/25 15:27 Order name: Flu; Complete Time: 16:30 [facility] 03/25 17:52 Order name: CBC Smear Scan [facility] 03/25 15:18 Order name: XRAY Chest (1 view); Complete Time: 16:02 [facility] 03/25 15:18 Order name: EKG; Complete Time: 15:19 [facility] 03/25 15:18 Order name: Cardiac monitoring; Complete Time: 15:21 [facility] 03/25 15:18 Order name: EKG - Nurse/Tech; Complete Time: 15:56 [facility] 03/25 15:18 Order name: IV Saline Lock; Complete Time: 17:05 [facility] 03/25 15:18 Order name: Labs collected and sent; Complete Time: 17:05 [facility] 03/25 15:18 Order name: O2 Per Protocol; Complete Time: 15:21 [facility] 03/25 15:18 Order name: O2 Sat Monitoring; Complete Time: 15:21 [facility] EC:05 Rate is 55 beats/min. Rhythm is regular. QRS Sledge is Normal. IN interval is prolonged [facility] at 234 msec. QRS interval is normal. QT interval is prolonged at 440 msec. No Q waves. T waves are Normal. Clinical impression: 1st degree heart block. Administered Medications: 15:40 Drug: Aspirin PO Chewable Tablet 324 mg PO once; 81 mg tablets x 4 Route: PO; [facility] 16:00 Follow up: Response: No adverse reaction [facility] 15:40 Drug: DuoNeb Nebulize (2.5 mg - 0.5 mg) 3 ml Nebulizer once Route: Nebulizer; [facility] 15:55 Follow up: Response: No adverse reaction [facility] 18:25 Drug: Acetaminophen PO 1000 mg PO once Route: PO; [facility] 18:40 Follow up: Response: Medication administered at discharge. [facility] 18:25 Drug: Potassium Chloride PO 40 mEq PO once Route: PO; [facility] 18:40 Follow up: Response: Medication administered at discharge. [facility] Disposition: 03/26 06:59 Co-signature as Attending Physician, Ramon Baker MD I reviewed the patient's care rn provided by the Advanced Practice Provider and agree with the diagnosis and treatment plan. Disposition Summary: 03/25/23 18:10 Discharge Ordered Notes: Location: Home [facility] Problem: new [facility] Symptoms: have improved [facility] Condition: Stable [facility] Diagnosis - Acute bronchitis, unspecified [facility] Followup: [facility] - With: Private Physician - When: 2 - 3 days - Reason: Recheck today's complaints Discharge Instructions: - Discharge Summary Sheet [facility] - Acute Bronchitis, Adult [facility] - Viral Respiratory Infection [facility] Forms: - Medication Reconciliation Form [facility] - Thank You Letter [facility] - Antibiotic Education [facility] - Patient Portal Instructions [facility] - Leadership Thank You Letter [facility] Prescriptions: - albuterol sulfate 90 mcg/actuation Inhalation HFA Aerosol Inhaler - inhale 1 puff INHALATION route every 4-6 hours As needed; 1 Each; Refills: 0, 7 Product Selection Permitted - Tessalon Perles 100 mg Oral Capsule - take 1 capsule ORAL route every 8 hours As needed; 15 capsule; Refills: 0, [facility] Product Selection Permitted - Medrol (Niall) 4 mg Oral Tablets, Dose Pack - take 1 tablet ORAL route as directed - follow package instructions; 1 packet; [facility] Refills: 0, Product Selection Permitted Signatures: Dispatcher [employer] Ramon Linton MD MD rn Hall, Erin, RN RN eh3 Karen Quintanilla, EXECUTIVE COMMUNITY PLANNING EXECUTIVE COMMUNITY PLANNING jh7 Corrections: (The following items were deleted from the chart) 03/25 15:27 15:15 Onset: The symptoms/episode began/occurred 3 day(s) ago, meghann 7
[2023-03-25 18:39] LABS: Blood Morphology Comment NOTED (NOT SEEN); Platelet Estimate DECR; White Blood Cell Scan OK (OK)
[2023-03-25 18:40] LABS: Anisocytosis 1+
[2023-03-25 18:46] VITALS: TEMP 98.7
[2023-03-25] MEDS ORDERED: POTASSIUM CL SA 10 MEQ TAB PO ONE (18:47)
[2023-03-25] MEDS ORDERED: ACETAMINOPHEN 500 MG TAB ONE (18:48)
[2023-03-25 18:50] VITALS: BP 146/81; O2SAT 97
== END 2023-03-25 18:42 | disposition home or self-care (01) ==
LOC: ER 15:04
DX: J20.9 Acute bronchitis, unspecified (principal); Z11.52 Encounter for screening for COVID-19; I10 Essential (primary) hypertension; Z21 Asymptomatic human immunodeficiency virus [HIV] infection status; Z88.1 Allergy status to other antibiotic agents; Z88.2 Allergy status to sulfonamides; Z88.8 Allergy status to other drugs, medicaments and biological substances
CPT/HCPCS: 36415; 71045; 80048; 83880; 84484; 85025; 87804; 87811; 93005; 94640; 99285

== ENCOUNTER 2023-03-28 21:39 | Emergency (ER) | payer OTHER ==
--- OUTSIDE RECORDS SUMMARY | 2023-03-28 22:02 | XMS REPORT | Continuity of Care Document ---
:1955 Author Organization [facility] t Address [address] [facility] [place] [address] Care Team Providers Name Role Phone Urmila Rahman Primary Care Physician ELAN ALVARADO Attending Clinician Unavailable BEVERLY LAYTON Attending Clinician Unavailable SANTIAGO CARDENAS Attending Clinician Unavailable [email or web address] Attending Clinician Unavailable Neelima Tripp RN Attending Clinician Unavailable Go Russell DO Attending Clinician Lm Abbott MD Attending Clinician [facility] Attending Clinician Unavailable Santiago Sanchez Attending Clinician Doctor Unassigned, [place] Attending Clinician Unavailable Bill COLES Attending [...] Carol Ann IZQUIERDO, Sarai Lieberman Attending Clinician [phone] Ashly Pelletier MA Attending Clinician Unavailable Dagoberto Bass MD Attending Clinician Ebrahim MANHOLE STRIPPER, [place] Attending Clinician Lab, [facility] Pob I Attending Clinician Unavailable Clark SANCHEZ, Monica Attending Clinician Unavailable Diana SANCHEZ, Agustina Attending Clinician Unavailable Andrez RAMIREZ, Rody Attending Clinician Unavailable Remigio JENKINS, Kirit Barnes Attending Clinician HEMATPOUR, BEVERLY Attending Clinician Unavailable Caridadsyed HUITRONP, Gloria Attending Clinician Xiao RAMIREZ, Michael Corbin Attending Clinician Unavailable Vani, [facility] Attending Clinician UnavailDO PORSHA Newell Attending Clinician Unavailable Rodo JENKINS, Gadiel Attending Clinician Tyrone JENKINS, Eveline Sierra Attending Clinician Stanislav RAMIREZ, Eladio Inman Attending Clinician Unavailable Geraldine HUITRONP, Leyda Attending Clinician [phone] Stefanie Montalvo RN Attending Clinician Unavailable [email or web address] [...] Number Effective Date Expiration Date S ourana [facility] [id number] 2012 STAR PLUS OON 00:00:00 [facility] [id number] 2019 DUAL COMPLETE HMO 00:00:00 [facility] STAR [id number] 2019 PLUS 00:00:00 [facility] [id number] 2019 [facility] [place] STAR 00:00:00 [employer] MEDICARE ADV [id number] 2019 2019 00:00:00 00:00:00 Problems Condition Condition [...] Added automatic ally from request for surgery [id number] Dysphagia Dysphagia Disease Active Overview: Methodi 4-[address] 00:00: g of this Hospita 00 note l might be different from the original. Added automatic ally from request for surgery [id number] CCL / EPS CCL / EPS Diagnosis [...] 2014-05 U nivers 0-02 ity of 00:00: [place] [facility] S/p [...] N/V [facility] hoxazole 1-25 Clear 00:00: [facility] trimetho DA Active SV [facility] prim 1-25 Clear 00:00: [facility] codeine DA Active SV N/V HCA 1-25 Clear 00:00: [facility] Metoclop Propensi Active UT ramide ty [...] s to drug Butorpha Propensi Active Hallucinatio 2020-1 Methodi nol ty to ns 2-04 st adverse 00:00: Hospita reaction 00 l s to drug FENTANYL DRUG Active High Hives 2018-0 Univers INGREDI 2-08 ity of 00:00: [place] 00 Medical Branch TRIMETHO DRUG Active Hives 2018-0 Univers PRIM INGREDI -08 ity of 00:00: [place] 00 Medical Branch Fentanyl Drug Active Other - See Unknown Un matt Allergy comments 06-30 reaction ity o f 00:00: [place] 00 Medical Branch Trimetho Propensi Active Hives 2018-0 Univer s prim ty to 06-30 ity [...] Date Stop Date Source Natural father Diabetes [facility] Natural father Other - see comments [facility] Natural [facility] mother [facility] Social History Social Habit Start Date Stop Date Quantity Comments Source Gender identity [facility] History SDOH Taoism Alcohol Frequency Hospita l History SDOH [facility] Alcohol Std Drinks Hospit al History SDOH [facility] Alcohol [facility] Exposure to 2022-04-30 2022-05-10 Yes University of SARS-CoV-2 (event) 00:00:00 10:25:00 [facility] Tobacco use and 2022-02-11 2022-02-11 Former smokeless Uni versity of exposure 00:00:00 00:00:00 tobacco user [facility] Tobacco Comment 2022-02-11 2022-02-11 Smokes approx 1-2 Un iversity of 00:00:00 00:00:00 cigarettes per [place] [facility] day when she Branch smokes Alcohol intake 2020-12-08 2020-12-08 Current drinker [facility] 00:00:00 00:00:00 of alcohol [facility] (finding) History of Social 2020-12-08 2020-12-[address] function 00:00:00 00:00:00 Hospital Cigarettes smoked 2020-09-05 2020-09-[address] current (pack per 00:00:00 00:00:00 Hospita l day) - Reported Cigarette 2020-09-05 2020-09-05 [facility] pack-years 00:00:00 00:00:00 Hospital Alcohol Comment 2016-09-23 2016-09-23 rare [facility] 00:00:00 00:00:00 Hospital History of tobacco 2011-09-29 User of smokeless University of use 00:00:00 tobacco [facility] Sex Ass[birth year] At [birth year] [facility] 00:00:00 00:00:00 Smoking Status Start Date Stop Date Source Ex-smoker 2022-02-11 00:00:00 2022-02-11 00:00:00 [facility] Medications Ordered Filled Start Stop [...] Until Discontinu ed, Routine furosemide 2022-05 Yes [id number] 40mg Take 1 U nivers 40 mg 0-27 tablet by ity of tablet 00:00: mouth in [place] 00 the Medical morning. Branch diltiazem 2022-05 Yes [id number] 180mg Take 1 U nivers XR 180 mg 0-27 capsule by ity of 24 hr 00:00: mouth in [facility] 00 the Medical morning. Branch furosemide 2022-05 Yes [id number] 40mg Take 1 U nivers 40 mg 0-27 tablet by ity of tablet 00:00: mouth in [place] 00 the Medical morning. Branch diltiazem 2022-05 Yes [id number] 180mg Take 1 U nivers XR 180 mg 0-27 capsule by ity of 24 hr 00:00: mouth in [facility] 00 the Medical morning. Branch amLODIPine 2022-05 Yes 10mg Take 10 mg U nivers (NORVASC) 0-26 by mouth ity of 10 mg 19:16: daily. [facility] 32 Medical Branch clonazePAM 2022-05 Yes 1mg Take 1 mg Un matt (KLONOPIN) 0-26 by mouth ity o f 1 mg tablet 19:16: at [place] [address] bedtime. Medical Branch traZODone 2022-05 Yes 50mg Take 50 mg Un matt 100 mg 0-26 by mouth ity of tablet 19:16: at [place] [address] bedtime. Medical Branch amLODIPine 2022-05 Yes 10mg Take 10 mg U nivers (NORVASC) 0-26 by mouth ity of 10 mg 19:16: daily. [place] tablet 32 Medical Branch clonazePAM 2022-05 Yes 1mg Take 1 mg Un matt (KLONOPIN) 0-26 by mouth ity o f 1 mg tablet 19:16: at [place] [address] bedtime. Medical Branch traZODone 2022-05 Yes 50mg Take 50 mg Un matt 100 mg 0-26 by mouth ity of tablet 19:16: at [place] [address] bedtime. Medical Branch hydrALAZINE 2022-05 Yes 50mg 50 mg, Univ ers (APRESOLINE 0-26 Oral, TID, it y of ) tablet 50 19:00: First dose [place] mg 00 (after Medical last Branch modificati on) on [facility] 03/17/23 at 1400, Until Discontinu ed, Routine diltiazem 2022-05 Yes 180mg 180 mg, Univ ers XR 0-26 Oral, ity of (DILT-XR) 16:00: DAILY, [place] capsule 180 00 First dose Me dical mg (after Branch last modificati on) on [facility] 03/17/23 at 1100, Until Discontinu ed, Routine sulfur 2022-05- No [id number] 5mL 5 mL, Unive rs hexafluorid 003-17 Intravenou i ty of e microsphr 15:15: 15:15 s, ONCE, 1 [place] (LUMASON) 00 :00 dose, On Medica l injection 5 [place] Branch mL 03/17/23 at 1015, Routine
cafe team member approving Restricted medication : ASHLEY [...] [place] mg 00 First dose Medical on [facility] Branch 03/17/23 at 0900, Until Discontinu ed, Routine amLODIPine 2022-05 Yes 10mg 10 mg, Unive rs (NORVASC) 0-26 Oral, ity of tablet 10 14:00: DAILY, [place] mg 00 First dose Medical on [facility] Branch 03/17/23 at 0900, Until Discontinu ed, Routine pantoprazol 2022-05 Yes 40mg 40 mg, Univ ers e 0-26 Oral, ity of (PROTONIX) 14:00: DAILY, [place] EC tablet 00 First dose Medi porfirio 40 mg on [facility] Branch 03/17/23 at 0900, Until Discontinu ed, Routine enoxaparin 2022-05 Yes 40mg 40 mg, Unive rs (LOVENOX) 0-26 Subcutaneo ity of injection 14:00: [place], [place]ILY, [place] 40 mg 00 First dose Medical on [facility] Branch 03/17/23 at 0900, Until Discontinu ed, Routine emtricitabi 2022-05 Yes 1{tbl} 1 tablet, [facility] ne-tenofovi 0-26 Oral, ity of r alafen 14:00: DAILY, [place] (DESCOVY) 00 First dose Medi porfirio tablet 1 on [facility] Branch tablet 03/17/23 at 0900, Until Discontinu ed, Routine SERTraline 2022-05 Yes 200mg 200 mg, Uni vers (ZOLOFT) 0-26 Oral, ity of tablet 200 14:00: DAILY, [place] mg 00 First dose Medical on [facility] Branch 03/17/23 at 0900, Until Discontinu ed, Routine buPROPion 2022-05 Yes 150mg 150 mg, Univ ers XL 0-26 Oral, ity of (WELLBUTRIN 14:00: DAILY, [place] XL[place] tablet 00 First dose Med ical 150 mg on [facility] Branch 03/17/23 at 0900, Until Discontinu [...] dose [place] mg 00 on Tue [facility] 03/17/23 Branch at 0800, Until Discontinu ed, JOE potassium 2022-05- No 20meq 20 mEq, IV Univers chloride in 03-17 Piggyback, i ty of water (KCL) 12:45: 14:04 ONCE, 1 [place] 20 mEq/100 00 : dose, On Medic al mL RTU IVPB [facility] 20 mEq 03/17/23 at 0745, 100 [...] 04:45: First dose [place] 00 on Tue [facility] 03/16/23 Branch at 2345, Until Discontinu ed, [...] 03/16/23 at 1915, JOE nitroglycer 2022-[id number] 1 Univers in 0.4 mg 0-26 tablet ity of sublingual 00:00: under the [place] tablet 00 tongue Medical every 5 Branch (five) minutes as needed for Chest pain. atorvastati 2022-05 Yes [id number] 80mg Take 1 Univers n 80 mg 0-26 tablet by ity of tablet 00:00: mouth at [place] [address] bedtime. Medical Branch hydrALAZINE 2022-05 Yes [id number] 50mg Take 1 Univers 50 mg 0-26 tablet by ity of tablet 00:00: mouth in [place] 00 the Medical morning Branch and 1 tablet at noon and 1 tablet in the evening. nitroglycer 2022-[id number] 1 Univers in 0.4 mg 0-26 tablet ity of sublingual 00:00: under the [place] tablet 00 tongue Medical every 5 Branch (five) minutes as needed for Chest pain. atorvastati 2022-05 Yes [id number] 80mg Take 1 Univers n 80 mg 0-26 tablet by ity of tablet 00:00: mouth at [place] [address] bedtime. Medical Branch hydrALAZINE 2022-05 Yes [id number] 50mg Take 1 Univers 50 mg 0-26 tablet by ity of tablet 00:00: mouth in [place] 00 the Medical morning Branch and 1 [...] :00 ONCE, 1 Medical dose, On Branch [facility] 03/16/23 at 1845, JOE ipratropium 2022-05- No 3mL 3 mL, Univ ers -albuteroL 0-25 10-25 Inhalation it y of (DUONEB) 19:00: 20:44 , ONCE [place] 0.5 mg-3 00 :00 NOW, 1 Medical mg(2.5 mg dose, On Branch base)/3 mL [facility] nebulizer 03/16/23 solution 3 at 1400, mL Routine morpHINE (4 2022-05- No 4mg 4 mg, Slow Univers mg/mL) 0- 10- IV Push, ity of injection 4 18:15: 20:43 ONCE, 1 [place] mg 00 :00 dose, On Medical [facility] Branch 03/16/23 at 1315, STAT ondansetron 2022- No 4mg 4 mg, Slow Univers (ZOFRAN 01-28 IV Push, ity of (PF)) 00:15: 23:13 ONCE, 1 [place] injection 4 00 :00 dose, On Medi porfirio mg [facility] 01/27/23 Branch at 1915, JOE KCL 2022- No 40meq 40 mEq, Univers (KLOR-CON 01-28 Oral, ity of M20) tablet 00:15: 23:13 ONCE, 1 [place] 40 mEq 00 :00 dose, On Medical [facility] 01/27/23 Branch at 191, Routine dicyclomine 2022- No 20mg 20 mg, Uni vers (BENTYL) 01-28 Oral, ity of tablet 20 00:15: 23:13 ONCE, 1 [place] mg 00 :00 dose, On [facility] 01/27/23 Branch at 191, Routine NaCl 0.9% [...] at 1600, STAT iopamidol 2022-0 2022- No [id number] 70mL 70 mL, U nivers (ISOVUE 01-27 Intravenou ity o f 370-500 mL) 20:44: 20:45 s, ONCE, 1 [place] injection 00 :00 dose, On Medica l 70 mL [facility] 01/27/23 Branch at 1600, Routine hydralAZINE 2022-2022- No 10mg 10 mg, Uni vers (APRESOLINE 01-27 Slow IV ity of ) injection 20:00: 21:10 Push, [place] 10 mg 00 :00 ONCE, 1 Medical dose, On Branch [facility] 01/27/23 at 1500, JOE ondansetron 2022-0 Yes [id number] 4mg Take 1 Univers 4 mg 9-07 tablet by ity of disintegrat 00:00: mouth [place] ing tablet 00 every 8 Medica l (eight) Branch hours as needed for Nausea and Vomiting (N/V). dicyclomine 3-0 Yes [id number] 20mg Take 1 Univers 20 mg 9-07 tablet by ity of tablet 00:00: mouth 4 [place] 00 (four) Medical times Branch daily. ondansetron 3-0 Yes [id number] 4mg Take 1 Univers 4 mg 9-07 tablet by ity of disintegrat 00:00: mouth [place] ing tablet 00 every 8 Medica l (eight) Branch hours as needed for Nausea and Vomiting (N/V). dicyclomine 2022-0 Yes [id number] 20mg Take 1 Univers 20 mg 9-07 tablet by ity of tablet 00:00: mouth 4 [place] 00 (four) Medical times Branch daily. emtricitabi 2022-0 Yes [id number] Take one Univers ne-tenofovi 6-12 po daily ity of r alafen 00:00: [place] (DESCOVY) 00 Medical tablet Branch raltegravir 2022-0 Yes [id number] 400mg Take 1 Univers (ISENTRESS) 6-12 tablet by ity of 400 mg 00:00: mouth in [place] tablet 00 the Medical morning Branch and 1 tablet in the evening. emtricitabi 2022-0 Yes [id number] Take one Univers ne-tenofovi 6-12 po daily ity of r alafen 00:00: [place] (DESCOVY) 00 Medical tablet Branch raltegravir 2022-0 Yes [id number] 400mg Take 1 Univers (ISENTRESS) 6-12 tablet by ity of 400 mg 00:00: mouth in [place] tablet 00 the Medical morning Branch and 1 tablet in the evening. emtricitabi 2022-0 Yes [id number] Take one Univers ne-tenofovi 6-12 po daily ity of r alafen 00:00: [place] (DESCOVY) 00 Medical tablet Branch raltegravir 2022-0 Yes [id number] 400mg Take 1 Univers (ISENTRESS) 6-12 tablet by ity of 400 mg 00:00: mouth in [place] tablet 00 the Medical morning Branch and 1 tablet in the evening. emtricitabi 2022-0 Yes [id number] Take one Univers ne-tenofovi 6-12 po daily ity of r alafen 00:00: [place] (DESCOVY) 00 Medical tablet Branch raltegravir 2022-0 Yes [id number] 400mg Take 1 Univers (ISENTRESS) 6-12 tablet by ity of 400 mg 00:00: mouth in [place] tablet 00 the Medical morning Branch and 1 tablet in the evening. emtricitabi 2022-0 Yes [id number] Take one Univers ne-tenofovi 6-12 po daily ity of r alafen 00:00: [place] (DESCOVY) 00 Medical tablet Branch raltegravir 2022-0 Yes [id number] 400mg Take 1 Univers (ISENTRESS) 6-12 tablet by ity of 400 mg 00:00: mouth in [place] tablet 00 the Medical morning Branch and 1 tablet in the evening. emtricitabi 2022-0 Yes [id number] Take one Univers ne-tenofovi 6-12 po daily ity of r alafen 00:00: [place] (DESCOVY) 00 Medical tablet Branch raltegravir 2022-0 Yes [id number] 400mg Take 1 Univers (ISENTRESS) 6-12 tablet by ity of 400 mg 00:00: mouth in [place] tablet 00 the Medical morning Branch and 1 tablet in the evening. emtricitabi 2022-0 Yes [id number] Take one Univers ne-tenofovi 6-12 po daily ity of r alafen 00:00: [place] (DESCOVY) 00 Medical tablet Branch raltegravir 2022-0 Yes [id number] 400mg Take 1 Univers (ISENTRESS) 6-12 tablet by ity of 400 mg 00:00: mouth in [place] tablet 00 the Medical morning Branch and 1 tablet in the evening. DESCOVY 2022-0 Yes [id number] Take one Univers tablet 5-08 po daily ity of 00:00: [place] 00 Medical Branch raltegravir 2022-0 Yes [id number] 400mg Take 1 Univers (ISENTRESS) 5-08 tablet by ity of 400 mg 00:00: mouth in [place] tablet 00 the Medical morning Branch and 1 tablet in the evening. DESCOVY 2022-0 2023- No [id number] Take one Univers tablet 5-08 06-12 po daily ity of 00:00: 00:00 [place] 00 :00 Medical Branch raltegravir 2022-0 3- No [id number] 400mg Take 1 Univers (ISENTRESS) 5-08 06-12 tablet by it y of 400 mg 00:00: 00:00 mouth in [place] tablet 00 :00 the Medical morning Branch and 1 tablet in the evening. emtricitabi 2022-0 Yes [id number] Take one Univers ne-tenofovi 4-04 po daily ity of r alafen 00:00: [place] (DESCOVY) 00 Medical tablet Branch emtricitabi 2022-0 Yes [id number] Take one Univers ne-tenofovi 4-04 po daily ity of r alafen 00:00: [place] (DESCOVY) 00 Medical tablet Branch emtricitabi 0 2022- No [id number] Take one Univers kacy-lj 4-04 05-08 po daily ity of r alafen 00:00: 00:00 [place] (DESCOVY) 00 :00 Medical tablet Branch potassium 2021-05 No 10meq 10 mEq, IV Univers chloride in 07-11 Piggyback, i ty of water 10 20:00: 22:00 ONCE, 1 [place] mEq/100 mL 00 :00 dose, On Medic al RTU 10 mEq [facility] 05/10/22 at 1400, Administer over 60 Minutes, 100 mL magnesium 2021-05 No 800mg 800 mg, Uni vers oxide 07-11 Oral, ity of (MAG-OX 20:00: 19:37 ONCE, 1 [place] 400) tablet 00 :00 dose, On Medi porfirio 800 mg [facility] 05/10/22 at 1400, Routine KCL 2021-05 No 40meq 40 mEq, Univers (KLOR-CON 07-11 Oral, ity of M20) tablet 19:15: 19:37 ONCE, 1 [place] 40 mEq 00 :00 dose, On Medical [facility] 05/10/22 at 1315, JOE hydralAZINE 2021-05 No 10mg 10 mg, Uni vers (APRESOLINE 07-11 Slow IV ity of ) injection 18:45: 18:42 [place], [place] 10 mg 00 :00 ONCE, 1 Medical dose, On Branch [facility] 05/10/22 at 1245, JOE NaCl 0.9% 2021-05 No 1000mL at 999 Uni vers (NS) bolus 07-11 mL/hr, ity of infusion 17:45: 20:00 1,000 mL, [place] 1,000 mL 00 :00 IV Medical Infusion, Branch ONCE, 1 dose, On [facility] 05/10/22 at 1145, JOE cefpodoxime 2021-05- No [id number] 100mg Take 1 Univers 100 mg 07-09 tablet by ity of tablet 00:00: 05:59 mouth in [place] 00 :00 the Medical morning Branch and 1 tablet in the evening. Do all this for 7 days. cefpodoxime 2021-05- No [id number] 100mg Take 1 Univers 100 mg 2-17 12-25 tablet by ity of tablet 00:00: 05:59 mouth in [place] 00 :00 the Medical morning Branch and 1 tablet in the evening. Do all this for 7 days. cefpodoxime 2021-05- No [id number] 100mg Take 1 Univers 100 mg 2-17 12-25 tablet by ity of tablet 00:00: 05:59 mouth in [place] 00 :00 the [facility] morning Branch and 1 tablet in the evening. Do all this for 7 days. butalbital- 2021-05- No 1{tbl} 1 tablet, Univers acetaminoph 2-16 12-15 Oral, ity of en-caff 00:15: 23:19 ONCE, 1 [place] (ESGIC) 00 :00 dose, On Medical 50-325-40 [place] mg tablet 1 05/06/22 tablet at 1815, JOE NaCl 0.9% 2021-05 No 500mL at 999 Univ ers (NS) bolus 2-16 12-16 mL/hr, 500 it y of infusion 00:00: 00:17 mL, IV [place] 500 mL 00 :00 Infusion, Medical ONCE, 1 Branch dose, On [facility] 05/06/22 at 1800, JOE ketorolac 2021-05 No 15mg 15 mg, Unive rs (TORADOL) 2-15 12-15 Slow IV ity of injection 22:00: 22:19 Push, [place] 15 mg 00 :00 ONCE, 1 Medical dose, On Branch [facility] 05/06/22 at 1600, JOE NaCl 0.9% 2021-05- No 1000mL at 999 Uni vers (NS) bolus 2-15 12-15 mL/hr, ity of infusion 22:00: 23:41 1,000 mL, [place] 1,000 mL 00 :00 IV Medical Infusion, Branch ONCE, 1 dose, On [facility] 05/06/22 at 1600, JOE ondansetron 2021-05- No 8mg 8 mg, Slow Univers (ZOFRAN 2-15 12-15 IV Push, ity of (PF)) 21:15: 22:19 ONCE, 1 [place] injection 8 00 :00 dose, On [facility] mg [place] Branch 05/06/22 at 1515, JOE ondansetron 2021-05 Yes [id number] 1-2 U nivers 4 mg tablet 2-15 tablets ity o f 00:00: every 8 [place] 00 hours as Medical needed for Branch nausea benzonatate 2021-05 Yes [id number] 200mg Take 1 Univers 200 mg 2-15 capsule by ity of capsule 00:00: mouth 3 [place] 00 (three) Medical times Branch daily as needed for Cough. albuterol 2021-05 Yes [id number] 2{puff} Inhale 2 Univers 90 2-15 Puffs ity of mcg/actuati 00:00: every 4 [place] on inhaler 00 (four) Medical hours as Branch needed for Wheezing or Shortness of Breath. butalbital- 2021-05 Yes [id number] 1{tbl} Take 1 Univers acetaminoph 2-15 tablet by ity of en-caff 00:00: mouth [place] 50-325-40 00 every 4 Medical mg tablet (four) Branch hours as needed (headache) . ondansetron 2021-05 Yes [id number] 1-2 U nivers 4 mg tablet 2-15 tablets ity o f 00:00: every 8 [place] 00 hours as Medical needed for Branch nausea benzonatate 2021-05 Yes [id number] 200mg Take 1 Univers 200 mg 2-15 capsule by ity of capsule 00:00: mouth 3 [place] 00 (three) Medical times Branch daily as needed for Cough. albuterol 2021-05 Yes [id number] 2{puff} Inhale 2 Univers 90 2-15 Puffs ity of mcg/actuati 00:00: every 4 [place] on inhaler 00 (four) Medical hours as Branch needed for Wheezing or Shortness of Breath. butalbital- 2021-05 Yes [id number] 1{tbl} Take 1 Univers acetaminoph 2-15 tablet by ity of en-caff 00:00: mouth [place] 50-325-40 00 every 4 Medical mg tablet (four) Branch hours as needed (headache) . ondansetron 2021-05 Yes [id number] 1-2 U nivers 4 mg tablet 2-15 tablets ity o f 00:00: every 8 [place] 00 hours as Medical needed for Branch nausea benzonatate 2021-05 Yes [id number] 200mg Take 1 Univers 200 mg 2-15 capsule by ity of capsule 00:00: mouth 3 [place] 00 (three) Medical times Branch daily as needed for Cough. albuterol 2021-05 Yes [id number] 2{puff} Inhale 2 Univers 90 2-15 Puffs ity of mcg/actuati 00:00: every 4 [place] on inhaler 00 (four) Medical hours as Branch needed for Wheezing or Shortness of Breath. butalbital- 2021-05 Yes [id number] 1{tbl} Take 1 Univers acetaminoph 2-15 tablet by ity of en-caff 00:00: mouth [place] 50-325-40 00 every 4 Medical mg tablet (four) Branch hours as needed (headache) . ondansetron 2021-05 Yes [id number] 1-2 U nivers 4 mg tablet 2-15 tablets ity o f 00:00: every 8 [place] 00 hours as Medical needed for Branch nausea benzonatate 2021-05 Yes [id number] 200mg Take 1 Univers 200 mg 2-15 capsule by ity of capsule 00:00: mouth 3 00 (three) Medical times Branch daily as needed for Cough. albuterol 2021-05 Yes [id number] 2{puff} Inhale 2 Univers 90 2-15 Puffs ity of mcg/actuati 00:00: every 4 [place] on inhaler 00 (four) Medical hours as Branch needed for Wheezing or Shortness of Breath. butalbital- 2021-05 Yes [id number] 1{tbl} Take 1 Univers acetaminoph 2-15 tablet by ity of en-caff 00:00: mouth [place] 50-325-40 00 every 4 Medical mg tablet (four) Branch hours as needed (headache) . ondansetron 2021-05 Yes [id number] 1-2 U nivers 4 mg tablet 2-15 tablets ity o f 00:00: every 8 [place] 00 hours as Medical needed for Branch nausea benzonatate 2021-05 Yes [id number] 200mg Take 1 Univers 200 mg 2-15 capsule by ity of capsule 00:00: mouth 3 [place] 00 (three) Medical times Branch daily as needed for Cough. albuterol 2021-05 Yes [id number] 2{puff} Inhale 2 Univers 90 2-15 Puffs ity of mcg/actuati 00:00: every 4 [place] on inhaler 00 (four) Medical hours as Branch needed for Wheezing or Shortness of Breath. butalbital- 2021-05 Yes [id number] 1{tbl} Take 1 Univers acetaminoph 2-15 tablet by ity of en-caff 00:00: mouth [place] 50-325-40 00 every 4 Medical mg tablet (four) Branch hours as needed (headache) . ondansetron 2021-05 Yes [id number] 1-2 U nivers 4 mg tablet 2-15 tablets ity o f 00:00: every 8 [place] 00 hours as Medical needed for Branch nausea benzonatate 2021-05 Yes [id number] 200mg Take 1 Univers 200 mg 2-15 capsule by ity of capsule 00:00: mouth 3 [place] 00 (three) Medical times Branch daily as needed for Cough. albuterol 2021-05 Yes [id number] 2{puff} Inhale 2 Univers 90 2-15 Puffs ity of mcg/actuati 00:00: every 4 [place] on inhaler 00 (four) Medical hours as Branch needed for Wheezing or Shortness of Breath. butalbital- 2021-05 Yes [id number] 1{tbl} Take 1 Univers acetaminoph 2-15 tablet by ity of en-caff 00:00: mouth [place] 50-325-40 00 every 4 Medical mg tablet (four) Branch hours as needed (headache) . ondansetron 2021-05 Yes [id number] 1-2 U nivers 4 mg tablet 2-15 tablets ity o f 00:00: every 8 [place] 00 hours as Medical needed for Branch nausea benzonatate 2021-05 Yes [id number] 200mg Take 1 Univers 200 mg 2-15 capsule by ity of capsule 00:00: mouth 3 [place] 00 (three) Medical times Branch daily as needed for Cough. albuterol 2021-05 Yes [id number] 2{puff} Inhale 2 Univers 90 2-15 Puffs ity of mcg/actuati 00:00: every 4 [place] on inhaler 00 (four) Medical hours as Branch needed for Wheezing or Shortness of Breath. butalbital- 2021-05 Yes [id number] 1{tbl} Take 1 [facility] acetaminoph 2-15 tablet by ity of en-caff 00:00: mouth [place] 50-325-40 00 every 4 Medical mg tablet (four) Branch hours as needed (headache) . ondansetron 2021-05 Yes [id number] 1-2 U nivers 4 mg tablet 2-15 tablets ity o f 00:00: every 8 [place] 00 hours as Medical needed for Branch nausea benzonatate 2021-05 Yes [id number] 200mg Take 1 [facility] 200 mg 2-15 capsule by ity of capsule 00:00: mouth 3 [place] 00 (three) Medical times Branch daily as needed for Cough. albuterol 2021-05 Yes [id number] 2{puff} Inhale 2 [facility] 90 2-15 Puffs ity of mcg/actuati 00:00: every 4 [place] on inhaler 00 (four) Medical hours as Branch needed for Wheezing or Shortness of Breath. butalbital- 2021-05 Yes [id number] 1{tbl} Take 1 [facility] acetaminoph 2-15 tablet by ity of en-caff 00:00: mouth [place] 50-325-40 00 every 4 Medical mg tablet (four) Branch hours as needed (headache) . ondansetron 2021-05 Yes [id number] 1-2 U nivers 4 mg tablet 2-15 tablets ity o f 00:00: every 8 [place] 00 hours as Medical needed for Branch nausea benzonatate 2021-05 Yes [id number] 200mg Take 1 [facility] 200 mg 2-15 capsule by ity of capsule 00:00: mouth 3 [place] 00 (three) Medical times Branch daily as needed for Cough. albuterol 2021-05 Yes [id number] 2{puff} Inhale 2 [facility] 90 2-15 Puffs ity of mcg/actuati 00:00: every 4 [place] on inhaler 00 (four) Medical hours as Branch needed for Wheezing or Shortness of Breath. butalbital- 2021-05 Yes [id number] 1{tbl} Take 1 [facility] acetaminoph 2-15 tablet by ity of en-caff 00:00: mouth [place] 50-325-40 00 every 4 Medical mg tablet (four) Branch hours as needed (headache) . ondansetron 2021-05 Yes [id number] 1-2 U nivers 4 mg tablet 2-15 tablets ity o f 00:00: every 8 [place] 00 hours as Medical needed for Branch nausea benzonatate 2021-05 Yes [id number] 200mg Take 1 [facility] 200 mg 2-15 capsule by ity of capsule 00:00: mouth 3 [place] 00 (three) Medical times Branch daily as needed for Cough. albuterol 2021-05 Yes [id number] 2{puff} Inhale 2 [facility] 90 2-15 Puffs ity of mcg/actuati 00:00: every 4 [place] on inhaler 00 (four) Medical hours as Branch needed for Wheezing or Shortness of Breath. butalbital- 2021-05 Yes [id number] 1{tbl} Take 1 [facility] acetaminoph 2-15 tablet by ity of en-caff 00:00: mouth [place] 50-325-40 00 every 4 Medical mg tablet (four) Branch hours as needed (headache) . ondansetron 2021-05 Yes [id number] 1-2 U nivers 4 mg tablet 2-15 tablets ity o f 00:00: every 8 [place] 00 hours as Medical needed for Branch nausea benzonatate 2021-05 Yes [id number] 200mg Take 1 [facility] 200 mg 2-15 capsule by ity of capsule 00:00: mouth 3 [place] 00 (three) Medical times Branch daily as needed for Cough. albuterol 2021-05 Yes [id number] 2{puff} Inhale 2 [facility] 90 2-15 Puffs ity of mcg/actuati 00:00: every 4 [place] on inhaler 00 (four) Medical hours as Branch needed for Wheezing or Shortness of Breath. butalbital- 2021-05 Yes [id number] 1{tbl} Take 1 [facility] acetaminoph 2-15 tablet by ity of en-caff 00:00: mouth [place] 50-325-40 00 every 4 Medical mg tablet (four) Branch hours as needed (headache) . ondansetron 2021-05 Yes [id number] 1-2 U nivers 4 mg tablet 2-15 tablets ity o f 00:00: every 8 [place] 00 hours as Medical needed for Branch nausea benzonatate 2021-05 Yes [id number] 200mg Take 1 [facility] 200 mg 2-15 capsule by ity of capsule 00:00: mouth 3 00 (three) Medical times Branch daily as needed for Cough. albuterol 2021-05 Yes [id number] 2{puff} Inhale 2 [facility] 90 2-15 Puffs ity of mcg/actuati 00:00: every 4 [place] on inhaler 00 (four) Medical hours as Branch needed for Wheezing or Shortness of Breath. butalbital- 2021-05 Yes [id number] 1{tbl} Take 1 [facility] acetaminoph 2-15 tablet by ity of en-caff 00:00: mouth [place] 50-325-40 00 every 4 Medical mg tablet (four) Branch hours as needed (headache) . ondansetron 2021-05 Yes [id number] 1-2 U nivers 4 mg tablet 2-15 tablets ity o f 00:00: every 8 [place] 00 hours as Medical needed for Branch nausea benzonatate 2021-05 Yes [id number] 200mg Take 1 [facility] 200 mg 2-15 capsule by ity of capsule 00:00: mouth 3 00 (three) Medical times Branch daily as needed for Cough. albuterol 2021-05 Yes [id number] 2{puff} Inhale 2 [facility] 90 2-15 Puffs ity of mcg/actuati 00:00: every 4 [place] on inhaler 00 (four) Medical hours as Branch needed for Wheezing or Shortness of Breath. butalbital- 2021-05 Yes [id number] 1{tbl} Take 1 [facility] acetaminoph 2-15 tablet by ity of en-caff 00:00: mouth [place] 50-325-40 00 every 4 Medical mg tablet (four) Branch hours as needed (headache) . albuterol 2021-05 Yes [id number] 2{puff} Inhale 2 [facility] 90 2-15 Puffs ity of mcg/actuati 00:00: every 4 [place] on inhaler 00 (four) Medical hours as Branch needed for Wheezing or Shortness of Breath. albuterol 2021-05 Yes [id number] 2{puff} Inhale 2 [facility] 90 2-15 Puffs ity of mcg/actuati 00:00: every 4 [place] on inhaler 00 (four) Medical hours as Branch needed for Wheezing or Shortness of Breath. albuterol 2021-05 Yes [id number] 2{puff} Inhale 2 [facility] 90 2-15 Puffs ity of mcg/actuati 00:00: every 4 [place] on inhaler 00 (four) Medical hours as Branch needed for Wheezing or Shortness of Breath. [facility] 2021-05- No [id number] 2{tbl} Take 2 [facility] r-ritonavir 2-15 12-21 tablets by i ty of (PAXLOVID, 00:00: 05:59 mouth in [place] EUA,) 300 00 :00 the Medical mg (150 mg morning Branch x 2)-100 mg and 2 tablet tablets in the evening. Do all this for 5 days. [facility] 2021-05- No [id number] 2{tbl} Take 2 [facility] r-ritonavir 2-15 12-21 tablets by i ty of (PAXLOVID, 00:00: 05:59 mouth in [place] EUA,) 300 00 :00 the Medical mg (150 mg morning Branch x 2)-100 mg and 2 tablet tablets in the evening. Do all this for 5 days. [facility] 2021-05- No [id number] 2{tbl} Take 2 [facility] r-ritonavir 2-15 12-21 tablets by i ty of (PAXLOVID, 00:00: 05:59 mouth in [place] EUA,) 300 00 :00 the Medical mg (150 mg morning Branch x 2)-100 mg and 2 tablet tablets in the evening. Do all this for 5 days. [facility] 2021-05 No [id number] 2{tbl} Take 2 [facility] r-ritonavir 2-15 12-21 [...] 12/1/22 at 1645, Routine amoxicillin 2021-05 Yes [id number] 1{tbl} Take 1 [facility] -clavulanat 2-01 [id number] tablet by i ty of e 875-125 00:00: mouth [place] mg per 00 every 12 Medical tablet (twelve) Branch hours. ondansetron 2021-05 Yes [id number] 4mg Take 1 [facility] 4 mg 2- 608632 tablet by ity of disintegrat 00:00: mouth [place] ing tablet 00 every 8 Medica l (eight) Branch hours as needed for Nausea and Vomiting (N/V). amoxicillin 2021-05 Yes [id number] 1{tbl} Take 1 [facility] -clavulanat 2-01 [id number] tablet by i ty of e 875-125 00:00: mouth [place] mg per 00 every 12 Medical tablet (twelve) Branch hours. ondansetron 2021-05 Yes [id number] 4mg Take 1 [facility] 4 mg 2- [id number] tablet by ity of disintegrat 00:00: mouth [place] ing tablet 00 every 8 Medica l (eight) Branch hours as needed for Nausea and Vomiting (N/V). amoxicillin 2021-05 Yes [id number] 1{tbl} Take 1 [facility] -clavulanat 2-01 [id number] tablet by i ty of e 875-125 00:00: mouth [place] mg per 00 every 12 Medical tablet (twelve) Branch hours. ondansetron 2021-05 Yes [id number] 4mg Take 1 [facility] 4 mg 2-01 [id number] tablet by ity of disintegrat 00:00: mouth [place] ing tablet 00 every 8 Medica l (eight) Branch hours as needed for Nausea and Vomiting (N/V). amoxicillin 2021-05 Yes [id number] 1{tbl} Take 1 [facility] -clavulanat 2-01 [id number] tablet by i ty of e 875-125 00:00: mouth [place] mg per 00 every 12 Medical tablet (twelve) Branch hours. ondansetron 2021-05 Yes [id number] 4mg Take 1 [facility] 4 mg 2-01 [id number] tablet by ity of disintegrat 00:00: mouth [place] ing tablet 00 every 8 Medica l (eight) Branch hours as needed for Nausea and Vomiting (N/V). amoxicillin 2021-05 Yes [id number] 1{tbl} Take 1 [facility] -clavulanat 2-01 [id number] tablet by i ty of e 875-125 00:00: mouth [place] mg per 00 every 12 Medical tablet (twelve) Branch hours. ondansetron 2021-05 Yes [id number] 4mg Take 1 [facility] 4 mg 2-01 [id number] tablet by ity of disintegrat 00:00: mouth [place] ing tablet 00 every 8 Medica l (eight) Branch hours as needed for Nausea and Vomiting (N/V). amoxicillin 2021-05 Yes [id number] 1{tbl} Take 1 [facility] -clavulanat 2-01 [id number] tablet by i ty of e 875-125 00:00: mouth [place] mg per 00 every 12 Medical tablet (twelve) Branch hours. ondansetron 2021-05 Yes [id number] 4mg Take 1 [facility] 4 mg 2- [id number] tablet by ity of disintegrat 00:00: mouth [place] ing tablet 00 every 8 Medica l (eight) Branch hours as needed for Nausea and Vomiting (N/V). amoxicillin 2021-05 Yes [id number] 1{tbl} Take 1 [facility] -clavulanat 2-01 [id number] tablet by i ty of e 875-125 00:00: mouth [place] mg per 00 every 12 Medical tablet (twelve) Branch hours. ondansetron 2021-05 Yes [id number] 4mg Take 1 [facility] 4 mg 2- [id number] tablet by ity of disintegrat 00:00: mouth [place] ing tablet 00 every 8 Medica l (eight) Branch hours as needed for Nausea and Vomiting (N/V). amoxicillin 2021-05 Yes [id number] 1{tbl} Take 1 [facility] -clavulanat 2-01 [id number] tablet by i ty of e 875-125 00:00: mouth [place] mg per 00 every 12 Medical tablet (twelve) Branch hours. ondansetron 2021-05 Yes [id number] 4mg Take 1 [facility] 4 mg 2-01 [id number] tablet by ity of disintegrat 00:00: mouth [place] ing tablet 00 every 8 Medica l (eight) Branch hours as needed for Nausea and Vomiting (N/V). amoxicillin 2021-05 Yes [id number] 1{tbl} Take 1 [facility] -clavulanat 2-01 [id number] tablet by i ty of e 875-125 00:00: mouth [place] mg per 00 every 12 Medical tablet (twelve) Branch hours. ondansetron 2021-05 Yes [id number] 4mg Take 1 [facility] 4 mg 2-01 [id number] tablet by ity of disintegrat 00:00: mouth [place] ing tablet 00 every 8 Medica l (eight) Branch hours as needed for Nausea and Vomiting (N/V). amoxicillin 2021-05 Yes [id number] 1{tbl} Take 1 [facility] -clavulanat 2-01 [id number] tablet by i ty of e 875-125 00:00: mouth [place] mg per 00 every 12 Medical tablet (twelve) Branch hours. ondansetron 2021-05 Yes [id number] 4mg Take 1 [facility] 4 mg 2-01 [id number] tablet by ity of disintegrat 00:00: mouth [place] ing tablet 00 every 8 Medica l (eight) Branch hours as needed for Nausea and Vomiting (N/V). amoxicillin 2021-05 Yes [id number] 1{tbl} Take 1 [facility] -clavulanat 2-01 [id number] tablet by i ty of e 875-125 00:00: mouth [place] mg per 00 every 12 Medical tablet (twelve) Branch hours. ondansetron 2021-05 Yes [id number] 4mg Take 1 [facility] 4 mg 2- 713850 tablet by ity of disintegrat 00:00: mouth [place] ing tablet 00 every 8 Medica l (eight) Branch hours as needed for Nausea and Vomiting (N/V). amoxicillin 2021-05 Yes [id number] 1{tbl} Take 1 [facility] -clavulanat 2-01 [id number] tablet by i ty of e 875-125 00:00: mouth [place] mg per 00 every 12 Medical tablet (twelve) Branch hours. ondansetron 2021-05 Yes [id number] 4mg Take 1 [facility] 4 mg 2-01 [id number] tablet by ity of disintegrat 00:00: mouth [place] ing tablet 00 every 8 Medica l (eight) Branch hours as needed for Nausea and Vomiting (N/V). amoxicillin 2021-05 Yes [id number] 1{tbl} Take 1 [facility] -clavulanat 2-01 [id number] tablet by i ty of e 875-125 00:00: mouth [place] mg per 00 every 12 Medical tablet (twelve) Branch hours. ondansetron 2021-05 Yes [id number] 4mg Take 1 [facility] 4 mg 2-01 [id number] tablet by ity of disintegrat 00:00: mouth [place] ing tablet 00 every 8 Medica l (eight) Branch hours as needed for Nausea and Vomiting (N/V). amoxicillin 2021-05 Yes [id number] 1{tbl} Take 1 [facility] -clavulanat 2-01 [id number] tablet by i ty of e 875-125 00:00: mouth [place] mg per 00 every 12 Medical tablet (twelve) Branch hours. ondansetron 2021-05 Yes [id number] 4mg Take 1 [facility] 4 mg 2-01 [id number] tablet by ity of disintegrat 00:00: mouth [place] ing tablet 00 every 8 Medica l (eight) Branch hours as needed for Nausea and Vomiting (N/V). amoxicillin 2021-05 Yes [id number] 1{tbl} Take 1 [facility] -clavulanat 2-01 [id number] tablet by i ty of e 875-125 00:00: mouth [place] mg per 00 every 12 Medical tablet (twelve) Branch hours. ondansetron 2021-05 Yes [id number] 4mg Take 1 [facility] 4 mg 2-01 [id number] tablet by ity of disintegrat 00:00: mouth [place] ing tablet 00 every 8 Medica l (eight) Branch hours as needed for Nausea and Vomiting (N/V). ondansetron 2021-05 Yes [id number] 4mg Take 1 [facility] 4 mg 2-01 [id number] tablet by ity of disintegrat 00:00: mouth [place] ing tablet 00 every 8 Medica l (eight) Branch hours as needed for Nausea and Vomiting (N/V). ondansetron 2021-05 Yes [id number] 4mg Take 1 [facility] 4 mg 2-01 [id number] tablet by ity of disintegrat 00:00: mouth [place] ing tablet 00 every 8 Medica l (eight) Branch hours as needed for Nausea and Vomiting (N/V). ondansetron 2021-05 Yes [id number] 4mg Take 1 [facility] 4 mg 2-01 [id number] tablet by ity of disintegrat 00:00: mouth [place] ing tablet 00 every 8 Medica l (eight) Branch hours as needed for Nausea and Vomiting (N/V). zoster 2021-05- No [id number] .5mL 0.5 mL by [facility] vaccine, 0-05 03- 9104 [facility] ity of recombinant 00:00: 04:59 lar route [place] (SHINGRIX, 00 :00 once now Medic al PF,) for 1 Branch injection dose. And repeat in 2-6 months zoster 2021-05- No [id number] .5mL 0.5 mL by [facility] vaccine, 0-05 03- 9104 [facility] ity of recombinant 00:00: 04:59 lar route [place] (SHINGRIX, 00 :00 once now Medic al PF,) for 1 Branch injection dose. And repeat in 2-6 months zoster 2021-05- No [id number] .5mL 0.5 mL by [facility] vaccine, 0- [...] o f 1 mg tablet 19:28: at [place] [address] bedtime. Medical Branch traZODone Yes 50mg Take 50 mg Un matt 100 mg 9-27 by mouth ity of tablet 19:28: at [place] [address] bedtime. Medical Branch hydralAZINE Yes 25mg Take [...] o f 1 mg tablet 19:28: at [place] [address] bedtime. Medical Branch traZODone 2021-0 Yes 50mg Take 50 mg Un matt 100 mg 9-27 by mouth ity of tablet 19:28: at [place] [address] bedtime. Medical Branch hydralAZINE 2021-0 Yes 25mg [...] o f 1 mg tablet 19:28: at [place] [address] bedtime. Medical Branch traZODone 2021-0 Yes 50mg Take 50 mg Un matt 100 mg 9-27 by mouth ity of tablet 19:28: at [place] [address] bedtime. Medical Branch hydralAZINE 2021-0 Yes 25mg [...] o f 1 mg tablet 19:28: at [place] [address] bedtime. Medical Branch traZODone 2021-0 Yes 50mg Take 50 mg Un matt 100 mg 9-27 by mouth ity of tablet 19:28: at [place] [address] bedtime. Medical Branch hydralAZINE 2021-0 Yes 25mg [...] o f 1 mg tablet 19:28: at [place] [address] bedtime. Medical Branch traZODone 2022-0 Yes 50mg Take 50 mg Un matt 100 mg 9-27 by mouth ity of tablet 19:28: at [place] [address] bedtime. Medical Branch hydralAZINE 2-0 Yes 25mg [...] o f 1 mg tablet 19:28: at [place] [address] bedtime. Medical Branch traZODone 2021-0 Yes 50mg Take 50 mg Un matt 100 mg 9-27 by mouth ity of tablet 19:28: at [place] [address] bedtime. Medical Branch hydralAZINE 2021-0 Yes 25mg [...] o f 1 mg tablet 19:28: at [place] [address] bedtime. Medical Branch traZODone 2021-0 Yes 50mg Take 50 mg Un matt 100 mg 9-27 by mouth ity of tablet 19:28: at [place] [address] bedtime. Medical Branch hydralAZINE 0 Yes 25mg [...] o f 1 mg tablet 19:28: at [place] [address] bedtime. Medical Branch traZODone 2021-0 Yes 50mg Take 50 mg Un matt 100 mg 9-27 by mouth ity of tablet 19:28: at [place] [address] bedtime. Medical Branch hydralAZINE 2021-0 Yes 25mg [...] o f 1 mg tablet 19:28: at [place] [address] bedtime. Medical Branch traZODone 2021-0 Yes 50mg Take 50 mg Un matt 100 mg 9-27 by mouth ity of tablet 19:28: at [place] [address] bedtime. Medical Branch hydralAZINE 2021-0 Yes 25mg [...] o f 1 mg tablet 19:28: at [place] [address] bedtime. Medical Branch traZODone 2021-0 Yes 50mg Take 50 mg Un matt 100 mg 9-27 by mouth ity of tablet 19:28: at [place] [address] bedtime. Medical Branch hydralAZINE 2021-0 Yes 25mg [...] 100 mg 04 (two) Medical tablet times [place] daily. amLODIPine 2021-0 Yes 10mg Take 10 mg U nivers (NORVASC) 9-27 by mouth ity of 10 mg 19:28: daily. [place] tablet 04 Medical Branch clonazePAM 2021-0 Yes 1mg Take 1 mg Un matt (KLONOPIN) 9-27 by mouth ity o f 1 mg tablet 19:28: at [place] [address] bedtime. Medical Branch traZODone 2021-0 Yes 50mg Take 50 mg Un matt 100 mg 9-27 by mouth ity of tablet 19:28: at [place] [address] bedtime. Medical Branch hydralAZINE 2021-0 Yes 25mg [...] 100 mg 04 (two) Medical tablet times [place] daily. amLODIPine 2021-0 Yes 10mg Take 10 mg U nivers (NORVASC) 9-27 by mouth ity of 10 mg 19:28: daily. [place] tablet 04 Medical Branch clonazePAM 2021-0 Yes 1mg Take 1 mg Un matt (KLONOPIN) 9-27 by mouth ity o f 1 mg tablet 19:28: at [place] [address] bedtime. Medical Branch traZODone 2021-0 Yes 50mg Take 50 mg Un matt 100 mg 9-27 by mouth ity of tablet 19:28: at [place] [address] bedtime. Medical Branch hydralAZINE 2021-0 Yes 25mg [...] o f 1 mg tablet 19:28: at [place] [address] bedtime. Medical Branch traZODone 2021-0 Yes 50mg Take 50 mg Un matt 100 mg 9-27 by mouth ity of tablet 19:28: at [place] [address] bedtime. Medical Branch hydralAZINE 2021-0 Yes 25mg [...] 100 mg 04 (two) Medical tablet times [place] daily. amLODIPine 2021-0 Yes 10mg Take 10 mg U nivers (NORVASC) 9-27 by mouth ity of 10 mg 19:28: daily. [place] tablet 04 Medical Branch clonazePAM 2021-0 Yes 1mg Take 1 mg Un matt (KLONOPIN) 9-27 by mouth ity o f 1 mg tablet 19:28: at [place] [address] bedtime. Medical Branch traZODone 2021-0 Yes 50mg Take 50 mg Un matt 100 mg 9-27 by mouth ity of tablet 19:28: at [place] [address] bedtime. Medical Branch hydralAZINE 2021-0 Yes 25mg [...] o f 1 mg tablet 19:28: at [place] [address] bedtime. Medical Branch traZODone 2021-0 Yes 50mg Take 50 mg Un matt 100 mg 9-27 by mouth ity of tablet 19:28: at [place] [address] bedtime. Medical Branch hydralAZINE 2021-0 Yes 25mg [...] o f 1 mg tablet 19:28: at [place] [address] bedtime. Medical Branch traZODone 2-0 Yes 50mg Take 50 mg Un matt 100 mg 9-27 by mouth ity of tablet 19:28: at [place] [address] bedtime. Medical Branch hydralAZINE 2-0 Yes 25mg [...] o f 1 mg tablet 19:28: at [place] [address] bedtime. Medical Branch traZODone 2021-0 Yes 50mg Take 50 mg Un matt 100 mg 9-27 by mouth ity of tablet 19:28: at [place] [address] bedtime. Medical Branch hydralAZINE 2021-0 Yes 25mg [...] o f 1 mg tablet 19:28: at [place] [address] bedtime. Medical Branch traZODone 2-0 Yes 50mg Take 50 mg Un matt 100 mg 9-27 by mouth ity of tablet 19:28: at [place] [address] bedtime. Medical Branch hydralAZINE 2021-0 Yes 25mg [...] o f 1 mg tablet 19:28: at [place] [address] bedtime. Medical Branch traZODone 2021-0 Yes 50mg Take 50 mg Un matt 100 mg 9-27 by mouth ity of tablet 19:28: at [place] [address] bedtime. Medical Branch hydralAZINE 2021-0 Yes 25mg [...] o f 1 mg tablet 19:28: at [place] [address] bedtime. Medical Branch traZODone 2-0 Yes 50mg Take 50 mg Un matt 100 mg 9-27 by mouth ity of tablet 19:28: at [place] [address] bedtime. Medical Branch hydralAZINE 2021-0 Yes 25mg [...] 100 mg 04 (two) Medical tablet times [place] daily. amLODIPine 2021-0 Yes 10mg Take 10 mg U nivers (NORVASC) 9-27 by mouth ity of 10 mg 19:28: daily. [place] tablet 04 Medical Branch clonazePAM 2021-0 Yes 1mg Take 1 mg Un matt (KLONOPIN) 9-27 by mouth ity o f 1 mg tablet 19:28: at [place] [address] bedtime. Medical Branch traZODone 2021-0 Yes 50mg Take 50 mg Un matt 100 mg 9-27 by mouth ity of tablet 19:28: at [place] [address] bedtime. Medical Branch hydralAZINE 2021-0 Yes 25mg [...] o f 1 mg tablet 19:28: at [place] [address] bedtime. Medical Branch traZODone 2021-0 Yes 50mg Take 50 mg Un matt 100 mg 9-27 by mouth ity of tablet 19:28: at [place] [address] bedtime. Medical Branch hydralAZINE 2021-0 Yes 25mg [...] 100 mg 04 (two) Medical tablet times [place] daily. amLODIPine 2021-0 Yes 10mg Take 10 mg U nivers (NORVASC) 9-27 by mouth ity of 10 mg 19:28: daily. [place] tablet 04 Medical Branch clonazePAM 2021-0 Yes 1mg Take 1 mg Un matt (KLONOPIN) 9- by mouth ity o f 1 mg tablet 19:28: at [place] [address] bedtime. Medical Branch traZODone 2021-0 Yes 50mg Take 50 mg Un matt 100 mg 9-27 by mouth ity of tablet 19:28: at [place] [address] bedtime. Medical Branch hydralAZINE 2021-0 Yes 25mg [...] o f 1 mg tablet 19:28: at [place] [address] bedtime. Medical Branch traZODone Yes 50mg Take 50 mg Un matt 100 mg 02-16 by mouth ity of tablet 19:28: at [place] [address] bedtime. [facility] Branch cefpodoxime 2021- No [id number] 200mg Take 1 [facility] 200 mg 02-16 tablet by ity of tablet 00:00: 04:59 mouth in [place] 00 :00 the [facility] morning Branch and 1 tablet in the evening. Do all this for 3 days. cefpodoxime 2021- No [id number] 200mg Take 1 [facility] 200 mg 02-16 tablet by ity of tablet 00:00: 04:59 mouth in [place] 00 :00 the [facility] and 1 tablet in the evening. Do all this for 3 days. haloperidol 2021- No 2mg 2 mg, Slow Univers lactate 02-15 IV Push, ity of (HALDOL) 09:00: 09:12 ONCE, 1 [place] injection 2 00 :00 dose, On Medi porfirio mg Mon [place] 02/15/22 at 0400, Routine hydroCHLORO Yes 25mg 25 mg, Univ ers thiazide 9-25 Oral, ity of (ESIDRIX) 14:00: DAILY, [place] capsule 25 00 First dose Med ical mg on [place] 02/14/22 at 0900, Until Discontinu ed, Routine butalbital- Yes 1{tbl} 1 tablet, [facility] acetaminoph 24 Oral, ity of en-caff 18:46: Q6HPRN, [place] (ESGIC) 06 Starting Medical 50-325-40 on [facility] Branch mg tablet 1 02/13/22 at [...] dose [place] mg 00 on [facility] Medical 02/11/22 at Branch 1300, Until Discontinu ed, Routine raltegravir 2021-0 Yes 400mg 400 mg, Un matt (ISENTRESS) 02-11 Oral, BID, it y of tablet 400 18:00: First dose [place] mg 00 on [facility] Medical 02/11/22 at Branch 1300, Until Discontinu ed, JOE metoprolol 2021-0 Yes 100mg 100 mg, Uni vers tartrate 02-11 Oral, BID, ity o f (LOPRESSOR) 18:00: First dose [place] tablet 100 00 on [facility] Medical mg 02/11/22 at Branch 1300, Until Discontinu ed, Routine lisinopriL 0 Yes 40mg 40 mg, Unive rs (PRINIVIL,Z 02-11 Oral, BID, it y of ESTRIL) 18:00: First dose [place] tablet 40 00 on [facility] Medical mg 02/11/22 at Branch 1300, Until Discontinu ed, Routine emtricitabi 0 Yes 1{tbl} 1 [facility] Oral, ity of r alafen 18:00: DAILY, [place] (DESCOVY) 00 First dose Medi porfirio tablet 1 on [facility] tablet 02/11/22 at 1300, Until Discontinu ed, Routine ipratropium 0 Yes .5mg 0.5 mg, Uni vers (ATROVENT) 02-11 Inhalation ity of 0.02 % 17:57: , QIDPRN, [place] nebulizer 10 Starting Medica l solution on [facility] Branch 0.5 mg 02/11/22 at 1257, Until Discontinu ed, Routine, Wheezing, Shortness of Breath amLODIPine 0 Yes 10mg 10 mg, Unive rs (NORVASC) 02-11 Oral, ity of tablet 10 17:30: DAILY, [place] mg 00 First dose Medical (after Branch last modificati on) on [facility] 02/11/22 at 1230, Until Discontinu ed, Routine hydrALAZINE 2021-0 2022- No 25mg 25 mg, Uni vers (APRESOLINE 02-11- Oral, ity of ) tablet 25 17:30: 12:54 DAILY, [place] mg 00 :55 First dose Medical (after Branch last modificati on) on [facility] 02/11/22 at 1230, Until Discontinu ed, Routine HYDROcodone 0 202- No 1{tbl} 1 tablet, Univers -acetaminop 02-11 Oral, ity of hen (NORCO 14:11: 17:37 Q6HPRN, [place] 5) 5-325 mg 03 :24 Starting Medi porfirio tablet 1 on [facility] Branch tablet 02/11/22 at 0911, Until Tue02/12/22 at 1237, Routine, Pain (scale 7-10) melatonin 0 Yes 3mg 3 mg, Univers (MELATIN) 02-11 Oral, ity of tablet 3 mg 14:08: QHSPRN, [place] 17 Starting Medical on [facility] Branch 02/11/22 at 0908, Until Discontinu ed, Routine, Insomnia acetaminoph 0 202- No 1{tbl} 1 tablet, Univers en-codeine 02-11 Oral, ity of (TYLENOL 14:06: 17:37 [facility] [place] #3) 300-30 19 :24 Starting Medic al mg tablet 1 on [facility] tablet 02/11/22 at 0906, Until Tue02/12/22 at 1237, Routine, Pain (scale 4-6) sennosides- 0 Yes 1{tbl} 1 tablet, Univers docusate 02-11 Oral, ity of sodium 14:06: QDAILYPRN, [place] (SENOKOT-S) 09 Starting Medi porfirio 8.6-50 mg on [facility] per tablet 02/11/22 at 1 tablet 0906, Until Discontinu ed, Routine, Constipati on ondansetron 0 Yes 4mg 4 mg, Slow [facility] (ZOFRAN 02-11 IV Push, ity of (PF)) 14[place]05[id number] 4 59 Starting Medi porfirio mg on [facility] Branch 02/11/22 at 0905, Until Discontinu [...] of ) 25 mg 09:10: daily. [facility] 54 Medical Branch amLODIPine Yes 10mg Take 10 mg U nivers (NORVASC) 02-11 by mouth ity of 10 mg 09:10: daily. [facility] 54 [facility] Branch piperacilli 2021- No 3.375g [...] of therapy: 72 hours iopamidol 2021- No [id number] 60mL 60 mL, [facility] (ISOVUE 02-11 Intravenou [...] 02/11/22 at 0015, JOE emtricitabi 0 Yes [id number] Take one [facility] ne-tenofovi 9-12 po daily ity of r alafen 00:00: [place] (DESCOVY) Medical tablet Branch emtricitabi Yes [id number] Take one [facility] ne-tenofovi 9-12 po daily ity of r alafen 00:00: [place] (DESCOVY) 00 Medical tablet Branch emtricitabi Yes [id number] Take one [facility] ne-tenofovi 9-12 po daily ity of r alafen 00:00: [place] (DESCOVY) 00 Medical tablet Branch emtricitabi Yes [id number] Take one [facility] ne-tenofovi 9-12 po daily ity of r alafen 00:00: [place] (DESCOVY) 00 Medical tablet Branch emtricitabi Yes [id number] Take one [facility] ne-tenofovi 9-12 po daily ity of r alafen 00:00: [place] (DESCOVY) 00 Medical tablet Branch emtricitabi Yes [id number] Take one [facility] ne-tenofovi 9-12 po daily ity of r alafen 00:00: [place] (DESCOVY) 00 Medical tablet Branch emtaspirus [facility] Yes [id number] Take one [facility] ne-tenofovi 9-12 po daily ity of r alafen 00:00: [place] (DESCOVY) 00 Medical tablet Branch emtricita Yes [id number] Take one [facility] ne-tenofovi 9-12 po daily ity of r alafen 00:00: [place] (DESCOVY) 00 Medical tablet Branch emtricita Yes [id number] Take one [facility] ne-tenofovi 9-12 po daily ity of r alafen 00:00: [place] (DESCOVY) 00 Medical tablet Branch emtricita Yes [id number] Take one [facility] ne-tenofovi 9-12 po daily ity of r alafen 00:00: [place] (DESCOVY) 00 Medical tablet Branch [place] Yes [id number] Take one [facility] ne-tenofovi 9-12 po daily ity of r alafen 00:00: [place] (DESCOVY) 00 Medical tablet Branch emt[place]virt[place] Yes [id number] Take one [facility] ne-tenofovi 9-12 po daily ity of r alafen 00:00: [place] (DESCOVY) 00 Medical tablet Branch emtricita Yes [id number] Take one [facility] ne-tenofovi 9-12 po daily ity of r alafen 00:00: [place] (DESCOVY) 00 Medical tablet Branch emtricita Yes [id number] Take one [facility] ne-tenofovi 9-12 po daily ity of r alafen 00:00: [place] (DESCOVY) 00 Medical tablet Branch emtricita Yes [id number] Take one [facility] ne-tenofovi 9-12 po daily ity of r alafen 00:00: [place] (DESCOVY) 00 Medical tablet Branch emtricita Yes [id number] Take one [facility] ne-tenofovi 9-12 po daily ity of r alafen 00:00: [place] (DESCOVY) 00 Medical tablet Branch emtricita Yes [id number] Take one [facility] ne-tenofovi 9-12 po daily ity of r alafen 00:00: [place] (DESCOVY) 00 Medical tablet Branch emtricitabi 2021-0 2022- No [id number] Take one [facility] ne-arianofovi 02-01-04 po daily ity of r alafen 00:00: 00:00 [place] (DESCOVY) 00 :00 Medical tablet Branch emtricitabi 2021-0 3- No [id number] Take one Univers ne-arianofovi 02-01- po daily ity of r alafen 00:00: 00:00 [place] (DESCOVY) 00 :00 Medical tablet Branch naproxen 2021-0 Yes [id number] 500mg Take 1 U nivers (NAPROSYN) 7-24 tablet by ity of 500 mg 00:00: mouth in [place] tablet 00 the Medical morning Branch and 1 tablet in the evening. Take with meals. methocarbam 2021-0 Yes [id number] 500mg Take 1 [facility] oL 500 mg 7-24 tablet by ity o f tablet 00:00: mouth 4 [place] ([facility]) Medical times Branch daily. naproxen 2021-0 Yes [id number] 500mg Take 1 U nivers (NAPROSYN) 7-24 tablet by ity of 500 mg 00:00: mouth in [place] tablet 00 the Medical morning Branch and 1 tablet in the evening. Take with meals. methocarbam 2021-0 Yes [id number] 500mg Take 1 [facility] oL 500 mg 7-24 tablet by ity o f tablet 00:00: mouth 4 [place] ([facility]) Medical times Branch daily. naproxen 2-0 Yes [id number] 500mg Take 1 U nivers (NAPROSYN) 7-24 tablet by ity of 500 mg 00:00: mouth in [place] tablet 00 the Medical morning Branch and 1 tablet in the evening. Take with meals. methocarbam 2022-0 Yes [id number] 500mg Take 1 [facility] oL 500 mg 7-24 tablet by ity o f tablet 00:00: mouth 4 [place] ([facility]) Medical times Branch daily. naproxen 2-0 2022- No [id number] 500mg Take 1 [facility] (NAPROSYN) 7-24 10-14 tablet by ity of 500 mg 00:00: 00:00 mouth in [place] tablet 00 :00 the Medical morning Branch and 1 tablet in the evening. Take with meals. methocarbam 2021- No [id number] 500mg Take 1 [facility] oL 500 mg 12-13 tablet by ity of tablet 00:00: 00:00 mouth 4 [place] 00 :00 (four) Medical times Branch daily. naproxen 2021- No [id number] 500mg Take 1 [facility] (NAPROSYN) 12-13 tablet by ity of 500 mg 00:00: 00:00 mouth in [place] tablet 00 :00 the Medical morning Branch and 1 tablet in the evening. Take with meals. methocarbam 2021- No [id number] 500mg Take 1 [facility] oL 500 mg 12-13 tablet by ity of tablet 00:00: 00:00 mouth 4 [place] 00 :00 (four) Medical times [place] daily. esomeprazol 2021- No 40mg Take 40 mg Univers e (NEXIUM) 11-20 by mouth 2 it y of 40 mg 09:12: 00:00 (two) [place] capsule 03 :00 times Medical daily. Branch amiodarone No 100mg Take 100 U nivers 100 mg 11-20 mg by ity of tablet 09:11: 00:00 mouth [place] 57 :00 daily. Medical Branch apixaban No 5mg Take 5 mg Uni vers (ELIQUIS) 5 11-20 by mouth 2 i ty of mg tablet 09:11: 00:00 (two) [place] 35 :00 times Medical daily. Branch traZODONE 2021- No Take by [facility] ers (DESYREL) 11-20 mouth at ity o f 10 mg/mL 09:10: 00:00 [place]time. [place] oral 28 :00 Medical suspension Branch hydralAZINE Yes 25mg Take 25 mg [facility] (APRESOLINE 11-20 by mouth ity of ) 25 mg 08:47: daily. [place] tablet 47 Medical Branch cephALEXin 2021- No [id number] 500mg Take 1 [facility] (KEFLEX) 10-24 capsule [...] Indication s: acute pain buPROPion 0 Yes [id number] 150mg Take 1 U nivers XL 4-12 tablet by ity of (WELLBUTRIN 00:00: mouth [place] XL) 150 mg 00 daily. Medical 24 hr Branch tablet busPIRone Yes [id number] 30mg Take 1 Un matt 30 mg 4-12 tablet by ity of tablet 00:00: mouth 2 [place] 00 (two) Medical times Branch daily. SERTraline Yes [id number] 200mg Take 2 [facility] 100 mg 4-12 tablets by ity of tablet 00:00: mouth [place] 00 daily. Medical Branch buPROPion Yes [id number] 150mg Take 1 U nivers XL 4-12 tablet by ity of (WELLBUTRIN 00:00: mouth [place] XL) 150 mg 00 daily. Medical 24 hr Branch tablet busPIRone 2021-0 Yes [id number] 30mg Take 1 Un matt 30 mg 4-12 tablet by ity of tablet 00:00: mouth 2 [place] 00 (two) Medical times Branch daily. SERTraline 2021-0 Yes [id number] 200mg Take 2 [facility] 100 mg 4-12 tablets by ity of tablet 00:00: mouth [place] 00 daily. Medical Branch buPROPion 2021-0 Yes [id number] 150mg Take 1 U nivers XL 4-12 tablet by ity of (WELLBUTRIN 00:00: mouth [place] XL) 150 mg 00 daily. Medical 24 hr Branch tablet busPIRone 2021-0 Yes [id number] 30mg Take 1 Un matt 30 mg 4-12 tablet by ity of tablet 00:00: mouth 2 [place] 00 (two) Medical times Branch daily. SERTraline 2021-0 Yes [id number] 200mg Take 2 [facility] 100 mg 4-12 tablets by ity of tablet 00:00: mouth [place] 00 daily. Medical Branch buPROPion 2021-0 Yes [id number] 150mg Take 1 U nivers XL 4-12 tablet by ity of (WELLBUTRIN 00:00: mouth [place] XL) 150 mg 00 daily. Medical 24 hr Branch tablet busPIRone 2021-0 Yes [id number] 30mg Take 1 Un matt 30 mg 4-12 tablet by ity of tablet 00:00: mouth 2 [place] 00 (two) Medical times Branch daily. SERTraline 2021-0 Yes [id number] 200mg Take 2 [facility] 100 mg 4-12 tablets by ity of tablet 00:00: mouth [place] 00 daily. Medical Branch buPROPion 2021-0 Yes [id number] 150mg Take 1 U nivers XL 4-12 tablet by ity of (WELLBUTRIN 00:00: mouth [place] XL) 150 mg 00 daily. Medical 24 hr Branch tablet busPIRone 2021-0 Yes [id number] 30mg Take 1 Un matt 30 mg 4-12 tablet by ity of tablet 00:00: mouth 2 [place] 00 (two) Medical times Branch daily. SERTraline 2021-0 Yes [id number] 200mg Take 2 [facility] 100 mg 4-12 tablets by ity of tablet 00:00: mouth [place] 00 daily. Medical Branch buPROPion 2021-0 Yes [id number] 150mg Take 1 U nivers XL 4-12 tablet by ity of (WELLBUTRIN 00:00: mouth [place] XL) 150 mg 00 daily. Medical 24 hr Branch tablet busPIRone 2021-0 Yes [id number] 30mg Take 1 Un matt 30 mg 4-12 tablet by ity of tablet 00:00: mouth 2 [place] 00 (two) Medical times Branch daily. SERTraline 2021-0 Yes [id number] 200mg Take 2 [facility] 100 mg 4-12 tablets by ity of tablet 00:00: mouth [place] 00 daily. Medical Branch buPROPion 2021-0 Yes [id number] 150mg Take 1 U nivers XL 4-12 tablet by ity of (WELLBUTRIN 00:00: mouth [place] XL) 150 mg 00 daily. Medical 24 hr Branch tablet busPIRone 2021-0 Yes [id number] 30mg Take 1 Un matt 30 mg 4-12 tablet by ity of tablet 00:00: mouth 2 [place] 00 (two) Medical times Branch daily. SERTraline 2021-0 Yes [id number] 200mg Take 2 [facility] 100 mg 4-12 tablets by ity of tablet 00:00: mouth [place] 00 daily. Medical Branch buPROPion 2021-0 Yes [id number] 150mg Take 1 U nivers XL 4-12 tablet by ity of (WELLBUTRIN 00:00: mouth [place] XL) 150 mg 00 daily. Medical 24 hr Branch tablet busPIRone 2021-0 Yes [id number] 30mg Take 1 Un matt 30 mg 4-12 tablet by ity of tablet 00:00: mouth 2 [place] 00 (two) Medical times Branch daily. SERTraline 2021-0 Yes [id number] 200mg Take 2 [facility] 100 mg 4-12 tablets by ity of tablet 00:00: mouth [place] 00 daily. Medical Branch buPROPion 2021-0 Yes [id number] 150mg Take 1 U nivers XL 4-12 tablet by ity of (WELLBUTRIN 00:00: mouth [place] XL) 150 mg 00 daily. Medical 24 hr Branch tablet busPIRone 2021-0 Yes [id number] 30mg Take 1 Un matt 30 mg 4-12 tablet by ity of tablet 00:00: mouth 2 [place] 00 (two) Medical times Branch daily. SERTraline 2021-0 Yes [id number] 200mg Take 2 [facility] 100 mg 4-12 tablets by ity of tablet 00:00: mouth [place] 00 daily. Medical Branch buPROPion 2021-0 Yes [id number] 150mg Take 1 U nivers XL 4-12 tablet by ity of (WELLBUTRIN 00:00: mouth [place] XL) 150 mg 00 daily. Medical 24 hr Branch tablet busPIRone 2021-0 Yes [id number] 30mg Take 1 Un matt 30 mg 4-12 tablet by ity of tablet 00:00: mouth 2 [place] 00 (two) Medical times Branch daily. SERTraline 2021-0 Yes [id number] 200mg Take 2 [facility] 100 mg 4-12 tablets by ity of tablet 00:00: mouth [place] 00 daily. Medical Branch buPROPion 2021-0 Yes [id number] 150mg Take 1 U nivers XL 4-12 tablet by ity of (WELLBUTRIN 00:00: mouth [place] XL) 150 mg 00 daily. Medical 24 hr Branch tablet busPIRone 2021-0 Yes [id number] 30mg Take 1 Un matt 30 mg 4-12 tablet by ity of tablet 00:00: mouth 2 [place] 00 (two) Medical times Branch daily. SERTraline 2021-0 Yes [id number] 200mg Take 2 [facility] 100 mg 4-12 tablets by ity of tablet 00:00: mouth [place] 00 daily. Medical Branch buPROPion 2021-0 Yes [id number] 150mg Take 1 U nivers XL 4-12 tablet by ity of (WELLBUTRIN 00:00: mouth [place] XL) 150 mg 00 daily. Medical 24 hr Branch tablet busPIRone 2021-0 Yes [id number] 30mg Take 1 Un matt 30 mg 4-12 tablet by ity of tablet 00:00: mouth 2 [place] 00 (two) Medical times Branch daily. SERTraline 0 Yes [id number] 200mg Take 2 [facility] 100 mg 4-12 tablets by ity of tablet 00:00: mouth [place] 00 daily. Medical Branch buPROPion 2021-0 Yes [id number] 150mg Take 1 U nivers XL 4-12 tablet by ity of (WELLBUTRIN 00:00: mouth [place] XL) 150 mg 00 daily. Medical 24 hr Branch tablet busPIRone 2021-0 Yes [id number] 30mg Take 1 Un matt 30 mg 4-12 tablet by ity of tablet 00:00: mouth 2 [place] 00 (two) Medical times Branch daily. SERTraline 2021-0 Yes [id number] 200mg Take 2 [facility] 100 mg 4-12 tablets by ity of tablet 00:00: mouth [place] 00 daily. Medical Branch buPROPion 2021-0 Yes [id number] 150mg Take 1 U nivers XL 4-12 tablet by ity of (WELLBUTRIN 00:00: mouth [place] XL) 150 mg 00 daily. Medical 24 hr Branch tablet busPIRone 2021-0 Yes [id number] 30mg Take 1 Un matt 30 mg 4-12 tablet by ity of tablet 00:00: mouth 2 [place] 00 (two) Medical times Branch daily. SERTraline 2021-0 Yes [id number] 200mg Take 2 [facility] 100 mg 4-12 tablets by ity of tablet 00:00: mouth [place] 00 daily. Medical Branch buPROPion 2021-0 Yes [id number] 150mg Take 1 U nivers XL 4-12 tablet by ity of (WELLBUTRIN 00:00: mouth [place] XL) 150 mg 00 daily. Medical 24 hr Branch tablet busPIRone 2021-0 Yes [id number] 30mg Take 1 Un matt 30 mg 4-12 tablet by ity of tablet 00:00: mouth 2 00 (two) Medical times Branch daily. SERTraline 2021-0 Yes [id number] 200mg Take 2 [facility] 100 mg 4-12 tablets by ity of tablet 00:00: mouth [place] 00 daily. Medical Branch buPROPion 2021-0 Yes [id number] 150mg Take 1 U nivers XL 4-12 tablet by ity of (WELLBUTRIN 00:00: mouth [place] XL) 150 mg 00 daily. Medical 24 hr Branch tablet busPIRone 2021-0 Yes [id number] 30mg Take 1 Un matt 30 mg 4-12 tablet by ity of tablet 00:00: mouth 2 (two) Medical times Branch daily. SERTraline 2021-0 Yes [id number] 200mg Take 2 [facility] 100 mg 4-12 tablets by ity of tablet 00:00: mouth [place] 00 daily. Medical Branch buPROPion 2021-0 Yes [id number] 150mg Take 1 U nivers XL 4-12 tablet by ity of (WELLBUTRIN 00:00: mouth [place] XL) 150 mg 00 daily. Medical 24 hr Branch tablet busPIRone 2021-0 Yes [id number] 30mg Take 1 Un matt 30 mg 4-12 tablet by ity of tablet 00:00: mouth 2 00 (two) Medical times Branch daily. SERTraline 2021-0 Yes [id number] 200mg Take 2 [facility] 100 mg 4-12 tablets by ity of tablet 00:00: mouth [place] 00 daily. Medical Branch buPROPion 2021-0 Yes [id number] 150mg Take 1 U nivers XL 4-12 tablet by ity of (WELLBUTRIN 00:00: mouth [place] XL) 150 mg 00 daily. Medical 24 hr Branch tablet busPIRone 2021-0 Yes [id number] 30mg Take 1 Un matt 30 mg 4-12 tablet by ity of tablet 00:00: mouth 2 00 (two) Medical times Branch daily. SERTraline 2021-0 Yes [id number] 200mg Take 2 [facility] 100 mg 4-12 tablets by ity of tablet 00:00: mouth [place] 00 daily. Medical Branch buPROPion 2021-0 Yes [id number] 150mg Take 1 U nivers XL 4-12 tablet by ity of (WELLBUTRIN 00:00: mouth [place] XL) 150 mg 00 daily. Medical 24 hr Branch tablet busPIRone 2021-0 Yes [id number] 30mg Take 1 Un matt 30 mg 4-12 tablet by ity of tablet 00:00: mouth 2 [place] 00 (two) Medical times Branch daily. SERTraline 2021-0 Yes [id number] 200mg Take 2 [facility] 100 mg 4-12 tablets by ity of tablet 00:00: mouth [place] 00 daily. Medical Branch buPROPion 2021-0 Yes [id number] 150mg Take 1 U nivers XL 4-12 tablet by ity of (WELLBUTRIN 00:00: mouth [place] XL) 150 mg 00 daily. Medical 24 hr Branch tablet busPIRone 2021-0 Yes [id number] 30mg Take 1 Un matt 30 mg 4-12 tablet by ity of tablet 00:00: mouth 2 [place] 00 (two) Medical times Branch daily. SERTraline 2021-0 Yes [id number] 200mg Take 2 [facility] 100 mg 4-12 tablets by ity of tablet 00:00: mouth [place] 00 daily. Medical Branch buPROPion 2021-0 Yes [id number] 150mg Take 1 U nivers XL 4-12 tablet by ity of (WELLBUTRIN 00:00: mouth [place] XL) 150 mg 00 daily. Medical 24 hr Branch tablet busPIRone 2021-0 Yes [id number] 30mg Take 1 Un matt 30 mg 4-12 tablet by ity of tablet 00:00: mouth 2 [place] 00 (two) Medical times Branch daily. SERTraline 2021-0 Yes [id number] 200mg Take 2 [facility] 100 mg 4-12 tablets by ity of tablet 00:00: mouth [place] 00 daily. Medical Branch buPROPion 2021-0 Yes [id number] 150mg Take 1 U nivers XL 4-12 tablet by ity of (WELLBUTRIN 00:00: mouth [place] XL) 150 mg 00 daily. Medical 24 hr Branch tablet busPIRone 2021-0 Yes [id number] 30mg Take 1 Un matt 30 mg 4-12 tablet by ity of tablet 00:00: mouth 2 [place] 00 (two) Medical times Branch daily. SERTraline 2021-0 Yes [id number] 200mg Take 2 [facility] 100 mg 4-12 tablets by ity of tablet 00:00: mouth [place] 00 daily. Medical Branch buPROPion 2021-0 Yes [id number] 150mg Take 1 U nivers XL 4-12 tablet by ity of (WELLBUTRIN 00:00: mouth [place] XL) 150 mg 00 daily. Medical 24 hr Branch tablet busPIRone 2021-0 Yes [id number] 30mg Take 1 Un matt 30 mg 4-12 tablet by ity of tablet 00:00: mouth 2 [place] 00 (two) Medical times Branch daily. SERTraline 2021-0 Yes [id number] 200mg Take 2 [facility] 100 mg 4-12 tablets by ity of tablet 00:00: mouth [place] 00 daily. Medical Branch buPROPion 2021-0 Yes [id number] 150mg Take 1 U nivers XL 4-12 tablet by ity of (WELLBUTRIN 00:00: mouth [place] XL) 150 mg 00 daily. Medical 24 hr Branch tablet busPIRone 2021-0 Yes [id number] 30mg Take 1 Un matt 30 mg 4-12 tablet by ity of tablet 00:00: mouth 2 [place] 00 (two) Medical times Branch daily. SERTraline 2021-0 Yes [id number] 200mg Take 2 [facility] 100 mg 4-12 tablets by ity of tablet 00:00: mouth [place] 00 daily. Medical Branch buPROPion 2021-0 Yes [id number] 150mg Take 1 U nivers XL 4-12 tablet by ity of (WELLBUTRIN 00:00: mouth [place] XL) 150 mg 00 daily. Medical 24 hr Branch tablet busPIRone 2021-0 Yes [id number] 30mg Take 1 Un matt 30 mg 4-12 tablet by ity of tablet 00:00: mouth 2 [place] 00 (two) Medical times Branch daily. SERTraline 2021-0 Yes [id number] 200mg Take 2 [facility] 100 mg 4-12 tablets by ity of tablet 00:00: mouth [place] 00 daily. Medical Branch buPROPion 2021-0 Yes [id number] 150mg Take 1 U nivers XL 4-12 tablet by ity of (WELLBUTRIN 00:00: mouth [place] XL) 150 mg 00 daily. Medical 24 hr Branch tablet busPIRone 2021-0 Yes [id number] 30mg Take 1 Un matt 30 mg 4-12 tablet by ity of tablet 00:00: mouth 2 [place] 00 (two) Medical times Branch daily. SERTraline 2021-0 Yes [id number] 200mg Take 2 [facility] 100 mg 4-12 tablets by ity of tablet 00:00: mouth [place] 00 daily. Medical Branch buPROPion 2021-0 Yes [id number] 150mg Take 1 U nivers XL 4-12 tablet by ity of (WELLBUTRIN 00:00: mouth [place] XL) 150 mg 00 daily. Medical 24 hr Branch tablet busPIRone 2021-0 Yes [id number] 30mg Take 1 Un matt 30 mg 4-12 tablet by ity of tablet 00:00: mouth 2 [place] 00 (two) Medical times Branch daily. SERTraline 2021-0 Yes [id number] 200mg Take 2 [facility] 100 mg 4-12 tablets by ity of tablet 00:00: mouth [place] 00 daily. Medical Branch buPROPion 2021-0 Yes [id number] 150mg Take 1 U nivers XL 4-12 tablet by ity of (WELLBUTRIN 00:00: mouth [place] XL) 150 mg 00 daily. Medical 24 hr Branch tablet busPIRone 2021-0 Yes [id number] 30mg Take 1 Un matt 30 mg 4-12 tablet by ity of tablet 00:00: mouth 2 [place] 00 (two) Medical times Branch daily. SERTraline 2021-0 Yes [id number] 200mg Take 2 [facility] 100 mg 4-12 tablets by ity of tablet 00:00: mouth [place] 00 daily. Medical Branch raltegravir 2021-0 Yes [id number] 400mg Take 1 [facility] (ISENTRESS) 3-28 tablet by ity of 400 mg 00:00: mouth 2 [place] tablet 00 (two) Medical times Branch daily. raltegravir 2021-0 Yes [id number] 400mg Take 1 [facility] (ISENTRESS) 3-28 tablet by ity of 400 mg 00:00: mouth 2 [place] tablet 00 (two) Medical times Branch daily. raltegravir 2021-0 Yes [id number] 400mg Take 1 [facility] (ISENTRESS) 3-28 tablet by ity of 400 mg 00:00: mouth 2 [place] tablet 00 (two) Medical times Branch daily. raltegravir 2022-0 Yes [id number] 400mg Take 1 [facility] (ISENTRESS) 3-28 tablet by ity of 400 mg 00:00: mouth 2 [place] tablet 00 (two) Medical times Branch daily. raltegravir 2-0 Yes [id number] 400mg Take 1 [facility] (ISENTRESS) 3-28 tablet by ity of 400 mg 00:00: mouth 2 [place] tablet 00 (two) Medical times Branch daily. raltegravir 2-0 Yes [id number] 400mg Take 1 [facility] (ISENTRESS) 3-28 tablet by ity of 400 mg 00:00: mouth 2 [place] tablet 00 (two) Medical times Branch daily. raltegravir 2-0 Yes [id number] 400mg Take 1 [facility] (ISENTRESS) 3-28 tablet by ity of 400 mg 00:00: mouth 2 [place] tablet 00 (two) Medical times Branch daily. raltegravir 2021-0 Yes [id number] 400mg Take 1 [facility] (ISENTRESS) 3-28 tablet by ity of 400 mg 00:00: mouth 2 [place] tablet 00 (two) Medical times Branch daily. raltegravir 2-0 Yes [id number] 400mg Take 1 [facility] (ISENTRESS) 3-28 tablet by ity of 400 mg 00:00: mouth 2 [place] tablet 00 (two) Medical times Branch daily. raltegravir 2-0 Yes [id number] 400mg Take 1 [facility] (ISENTRESS) 3-28 tablet by ity of 400 mg 00:00: mouth 2 [place] tablet 00 (two) Medical times Branch daily. raltegravir 2-0 Yes [id number] 400mg Take 1 [facility] (ISENTRESS) 3-28 tablet by ity of 400 mg 00:00: mouth 2 [place] tablet 00 (two) Medical times Branch daily. raltegravir 2022-0 Yes [id number] 400mg Take 1 [facility] (ISENTRESS) 3-28 tablet by ity of 400 mg 00:00: mouth 2 [place] tablet 00 (two) Medical times Branch daily. raltegravir 2022-0 Yes [id number] 400mg Take 1 [facility] (ISENTRESS) 3-28 tablet by ity of 400 mg 00:00: mouth 2 [place] tablet 00 (two) Medical times Branch daily. raltegravir 2021-0 Yes [id number] 400mg Take 1 [facility] (ISENTRESS) 3-28 tablet by ity of 400 mg 00:00: mouth 2 [place] tablet 00 (two) Medical times Branch daily. raltegravir 2021-0 Yes [id number] 400mg Take 1 [facility] (ISENTRESS) 3-28 tablet by ity of 400 mg 00:00: mouth 2 [place] tablet 00 (two) Medical times Branch daily. raltegravir 0 Yes [id number] 400mg Take 1 [facility] (ISENTRESS) 3-28 tablet by ity of 400 mg 00:00: mouth 2 [place] tablet 00 (two) Medical times Branch daily. raltegravir 2021-0 Yes [id number] 400mg Take 1 [facility] (ISENTRESS) 3-28 tablet by ity of 400 mg 00:00: mouth 2 [place] tablet 00 (two) Medical times Branch daily. raltegravir 0 Yes [id number] 400mg Take 1 [facility] (ISENTRESS) 3-28 tablet by ity of 400 mg 00:00: mouth 2 [place] tablet 00 (two) Medical times Branch daily. raltegravir 2021-0 Yes [id number] 400mg Take 1 [facility] (ISENTRESS) 3-28 tablet by ity of 400 mg 00:00: mouth 2 [place] tablet 00 (two) Medical times Branch daily. raltegravir 2021-0 Yes [id number] 400mg Take 1 [facility] (ISENTRESS) 3-28 tablet by ity of 400 mg 00:00: mouth 2 [place] tablet 00 (two) Medical times Branch daily. raltegravir 0 2022- No [id number] 400mg Take 1 [facility] (ISENTRESS) 3-28 05-08 tablet by it y of 400 mg 00:00: 00:00 mouth 2 [place] tablet 00 :00 (two) Medical times Branch daily. LORazepam 1 0 2- No [id number] 1mg Take 1 [facility] mg tablet 3-21 07-01 tablet by ity of 00:00: 00:00 mouth 3 [place] 00 :00 (three) Medical times Branch daily as needed (anxiety). raltegravir 2021-0 Yes 400mg Q.5D Take 400 [facility] (Isentress) 2-22 mg by Health 400 MG 09:09: mouth 2 tablet 52 (two) times a day. promethazin Yes 25mg Q.5D Take 25 mg [facility] e 2-08 by mouth 2 [facility] (Phenergan) 00:00: (two) 25 MG 00 times a tablet day. furosemide Yes 40mg Q.5D Take 40 mg [facility] (Lasix) 40 2-08 by mouth 2 Hea lth MG tablet 00:00: (two) 00 times a day. emtricitabi 2021- No [id number] Take one [facility] ne-tenofovi 1-20 09-12 po daily ity of r alafen 00:00: 00:00 [place] (DESCOVY) 00 :00 Medical tablet Branch metoprolol Yes [id number] Take 1 [facility] tartrate 7-26 tablet Health (Lopressor) 00:00: (100 mg 100 MG 00 total) by tablet mouth 2 (two) times a day AND 0.5 tablets (50 mg total) every night. metoprolol Yes [id number] Take 1 [facility] tartrate 7-26 tablet [facility] [...] (affected area in groin) hydrALAZINE Yes 50mg Q.[id number] Take 50 mg [facility] (APRESOLINE 7-19 [id number] mouth [facility] [address] ) 50 MG [...] area in groin) hydrALAZINE 0 Yes 50mg Q.[id number] Take 50 mg [facility] (APRESOLINE 7-[id number] mouth [facility] ) 50 MG [...] area in groin) hydrALAZINE 0 Yes 50mg Q.[id number] Take 50 mg [facility] (APRESOLINE 7-19 [id number] mouth [facility] ) 50 MG [...] (affected area in groin) hydrALAZINE Yes 50mg Q.[id number] Take 50 mg [facility] (APRESOLINE 7-[id number] mouth [facility] ) 50 MG [...] (affected area in groin) hydrALAZINE Yes 50mg Q.[id number] Take 50 mg [facility] (APRESOLINE 7-19 [id number] mouth [facility] ) 50 MG [...] area in groin) hydrALAZINE 2021-0 Yes 50mg Q.[id number] Take 50 mg [facility] (APRESOLINE 7-19 [id number] mouth [facility] [address] ) 50 MG [...] (affected area in groin) hydrALAZINE Yes 50mg Q.[id number] Take 50 mg [facility] (APRESOLINE 7-19 [id number] mouth [facility] ) 50 MG [...] (affected area in groin) hydrALAZINE Yes 50mg Q.[id number] Take 50 mg [facility] (APRESOLINE 7-19 [id number] mouth [facility] ) 50 MG [...] area in groin) hydrALAZINE 0 Yes 50mg Q.[id number] Take 50 mg [facility] (APRESOLINE 7-[id number] mouth [address] ) 50 MG [...] (affected area in groin) hydrALAZINE Yes 50mg Q.[id number] Take 50 mg [facility] (APRESOLINE 7-[id number] mouth [address] ) 50 MG [...] (affected area in groin) hydrALAZINE Yes 50mg Q.[id number] Take 50 mg [facility] (APRESOLINE 7-[id number] mouth [address] ) 50 MG [...] area in groin) hydrALAZINE 0 Yes 50mg Q.[id number] Take 50 mg [facility] (APRESOLINE 7-19 [id number] mouth [address] ) 50 MG [...] area in groin) hydrALAZINE 0 Yes 50mg Q.[id number] Take 50 mg [facility] (APRESOLINE 7-19 [id number] by mouth 3 st ) 50 MG [...] (affected area in groin) hydrALAZINE Yes 50mg Q.[id number] Take 50 mg [facility] (APRESOLINE 7-19 [id number] by mouth 3 st ) 50 MG [...] area in groin) hydrALAZINE 0 Yes 50mg Q.08150248 Take 50 mg [facility] (APRESOLINE 7-19 [id number] by mouth 3 st ) 50 MG [...] area in groin) hydrALAZINE 0 Yes 50mg Q.55702705 Take 50 mg [facility] (APRESOLINE 7-19 [id number] by mouth 3 st ) 50 MG [...] (affected area in groin) hydrALAZINE Yes 50mg Q.68405090 Take 50 mg [facility] (APRESOLINE 7-19 [id number] by mouth 3 st ) 50 MG [...] area in groin) hydrALAZINE 0 Yes 50mg Q.37416484 Take 50 mg [facility] (APRESOLINE 7-19 6340450244 by mouth 3 st ) 50 MG [...] area in groin) hydrALAZINE 0 Yes 50mg Q.87037153 Take 50 mg [facility] (APRESOLINE 7-19 [id number] by mouth 3 st ) 50 MG [...] area in groin) hydrALAZINE 0 Yes 50mg Q.03596547 Take 50 mg [facility] (APRESOLINE 7-19 [id number] by mouth 3 st ) 50 MG [...] area in groin) hydrALAZINE 0 Yes 50mg Q.95681335 Take 50 mg [facility] (APRESOLINE 7-19 [id number] by mouth 3 st ) 50 MG [...] area in groin) hydrALAZINE 0 Yes 50mg Q.55573874 Take 50 mg [facility] (APRESOLINE 7-19 [id number] by mouth 3 st ) 50 MG [...] area in groin) hydrALAZINE 0 Yes 50mg Q.10156229 Take 50 mg [facility] (APRESOLINE -19 8634973989 by mouth 3 st ) 50 MG [...] Q4H Inhale 1 M [facility] sulfate 90 -[address] mcg/actuati 10:51: 4 (four) [...] (affected area in groin) hydrALAZINE Yes 50mg Q.37455947 Take 50 mg [facility] (APRESOLINE - [id number] by mouth 3 st ) 50 MG [...] area in groin) hydrALAZINE 0 Yes 50mg Q.40468373 Take 50 mg [facility] (APRESOLINE 7-19 [address]16016051 by mouth 3 st ) 50 MG [...] area in groin) hydrALAZINE 0 Yes 50mg Q.05111453 Take 50 mg [facility] (APRESOLINE 7-19 [id number] by mouth 3 st ) 50 MG [...] area in groin) hydrALAZINE 0 Yes 50mg Q.85990132 Take 50 mg [facility] (APRESOLINE - [id number] by mouth 3 st ) 50 MG [...] area in groin) hydrALAZINE 0 Yes 50mg Q.94950872 Take 50 mg [facility] (APRESOLINE 7-19 [id number] by mouth 3 st ) 50 MG [...] area in groin) hydrALAZINE 2020-0 Yes 50mg Q.30251234 Take 50 mg [facility] (APRESOLINE 7-19 [id number] by mouth 3 st ) 50 MG [...] (affected area in groin) hydrALAZINE Yes 50mg Q.60858014 Take 50 mg [facility] (APRESOLINE 7-19 [id number] by mouth 3 st ) 50 MG [...] (affected area in groin) hydrALAZINE Yes 50mg Q.81735611 Take 50 mg [facility] (APRESOLINE 7-19 2442942145 [address] mouth 3 st ) 50 MG [...] area in groin) hydrALAZINE 0 Yes 50mg Q.87042763 Take 50 mg [facility] (APRESOLINE 7-19 [address]48410151 by mouth 3 st ) 50 MG [...] area in groin) hydrALAZINE 0 Yes 50mg Q.61642573 Take 50 mg [facility] (APRESOLINE 7-19 [id number] by mouth 3 st ) 50 MG [...] (affected area in groin) hydrALAZINE Yes 50mg Q.28841711 Take 50 mg [facility] (APRESOLINE - [id number] by mouth 3 st ) 50 MG [...] area in groin) hydrALAZINE 0 Yes 50mg Q.03884686 Take 50 mg [facility] (APRESOLINE 7-19 [address]99[address]79 [address] mouth 3 st ) 50 MG [...] area in groin) hydrALAZINE 0 Yes 50mg Q.76888779 Take 50 mg [facility] (APRESOLINE 7-19 [id number] [address] mouth 3 [address] ) 50 MG [...] (affected area in groin) hydrALAZINE Yes 50mg Q.13206596 Take 50 mg [facility] (APRESOLINE 7-19 [id number] by mouth 3 st ) 50 MG [...] area in groin) hydrALAZINE 0 Yes 50mg Q.08112454 Take 50 mg [facility] (APRESOLINE 7-19 1697043571 by mouth 3 st ) 50 MG [...] area in groin) hydrALAZINE 2020-0 Yes 50mg Q.80450216 Take 50 mg [facility] (APRESOLINE 7-19 [id number] by mouth 3 st ) 50 MG [...] area in groin) hydrALAZINE 0 Yes 50mg Q.15975230 Take 50 mg [facility] (APRESOLINE 7-19 [id number] by mouth 3 [address] ) 50 MG [...] (affected area in groin) hydrALAZINE Yes 50mg Q.11028209 Take 50 mg [facility] (APRESOLINE - [id number] by mouth 3 st ) 50 MG [...] area in groin) hydrALAZINE 0 Yes 50mg Q.48466571 Take 50 mg [facility] (APRESOLINE 7-19 [id number] by mouth 3 st ) 50 MG [...] area in groin) hydrALAZINE 2020-0 Yes 50mg Q.97403343 Take 50 mg [facility] (APRESOLINE 7-19 [id number] by mouth 3 st ) 50 MG [...] area in groin) hydrALAZINE 0 Yes 50mg Q.13021629 Take 50 mg [facility] (APRESOLINE - [id number] by mouth 3 st ) 50 MG [...] area in groin) hydrALAZINE 0 Yes 50mg Q.24457665 Take 50 mg [facility] (APRESOLINE 7-19 2640937[address] by mouth 3 st ) 50 MG [...] area in groin) hydrALAZINE 2020-0 Yes 50mg Q.24128663 Take 50 mg [facility] (APRESOLINE 7-19 [id number] by mouth 3 st ) 50 MG [...] area in groin) hydrALAZINE 0 Yes 50mg Q.88988693 Take 50 mg [facility] (APRESOLINE 7-19 [id number] by mouth 3 st ) 50 MG [...] (affected area in groin) hydrALAZINE Yes 50mg Q.97658391 Take 50 mg [facility] (APRESOLINE 7-19 [id number] by mouth 3 st ) 50 MG [...] area in groin) hydrALAZINE 0 Yes 50mg Q.93487544 Take 50 mg [facility] (APRESOLINE -19 [id number] by mouth 3 st ) 50 MG [...] area in groin) hydrALAZINE 0 Yes 50mg Q.30090985 Take 50 mg [facility] (APRESOLINE 7-19 [id number] by mouth 3 st ) 50 MG [...] (affected area in groin) hydrALAZINE Yes 50mg Q.85182675 Take 50 mg [facility] (APRESOLINE 7-19 [id number] mouth 3 st ) 50 MG [...] area in groin) hydrALAZINE 0 Yes 50mg Q.34805575 Take 50 mg [facility] (APRESOLINE 7-19 [id number] by mouth 3 st ) 50 MG [...] area in groin) hydrALAZINE 0 Yes 50mg Q.76619809 Take 50 mg [facility] (APRESOLINE 7-19 [id number] by mouth 3 st ) 50 MG [...] (affected area in groin) hydrALAZINE Yes 50mg Q.03067664 Take 50 mg [facility] (APRESOLINE 7-[id number] mouth 3 [address] ) 50 MG [...] (affected area in groin) hydrALAZINE Yes 50mg Q.27406322 Take 50 mg [facility] (APRESOLINE -19 [id number] by mouth 3 st ) 50 MG [...] area in groin) hydrALAZINE 0 Yes 50mg Q.59266015 Take 50 mg [facility] (APRESOLINE 7-19 [id number] by mouth 3 st ) 50 MG [...] area in groin) hydrALAZINE 0 Yes 50mg Q.30877335 Take 50 mg [facility] (APRESOLINE 7-19 [id number] [address] mouth 3 [address] ) 50 MG [...] (affected area in groin) hydrALAZINE Yes 50mg Q.43743654 Take 50 mg [facility] (APRESOLINE 7-19 1921050915 by mouth 3 [address] ) 50 MG [...] area in groin) hydrALAZINE 0 Yes 50mg Q.03170629 Take 50 mg [facility] (APRESOLINE 7-19 [id number] by mouth 3 st ) 50 MG [...] area in groin) hydrALAZINE 0 Yes 50mg Q.37525875 Take 50 mg [facility] (APRESOLINE 7-19 [id number] mouth 3 [address] ) 50 MG [...] (affected area in groin) hydrALAZINE Yes 50mg Q.87837230 Take 50 mg [facility] (APRESOLINE 7-19 [id number] mouth 3 [address] ) 50 MG [...] area in groin) hydrALAZINE 0 Yes 50mg Q.36377393 Take 50 mg [facility] (APRESOLINE 7-19 [id number] [address] mouth 3 [address] ) 50 MG [...] area in groin) hydrALAZINE 0 Yes 50mg Q.87098728 Take 50 mg [facility] (APRESOLINE 7-[id number] mouth 3 [address] ) 50 MG [...] (affected area in groin) hydrALAZINE Yes 50mg Q.34492918 Take 50 mg [facility] (APRESOLINE 7-19 [id number] by mouth 3 st ) 50 MG [...] area in groin) hydrALAZINE 0 Yes 50mg Q.18327259 Take 50 mg [facility] (APRESOLINE 7-19 [id number] mouth [address] ) 50 MG [...] area in groin) hydrALAZINE 0 Yes 50mg Q.36196564 Take 50 mg [facility] (APRESOLINE 7-19 [id number] by mouth 3 [address] ) 50 MG [...] (affected area in groin) hydrALAZINE Yes 50mg Q.79435177 Take 50 mg [facility] (APRESOLINE 7-[id number] mouth [address] ) 50 MG [...] (affected area in groin) hydrALAZINE Yes 50mg Q.98493566 Take 50 mg [facility] (APRESOLINE 7-19 [address] mouth 3 [address] ) 50 MG [...] area in groin) hydrALAZINE 0 Yes 50mg Q.88667466 Take 50 mg [facility] (APRESOLINE 7-19 [address]056[address] mouth 3 [address] ) 50 MG [...] area in groin) hydrALAZINE 0 Yes 50mg Q.00424039 Take 50 mg [facility] (APRESOLINE 7-[id number] mouth 3 [address] ) 50 MG [...] (affected area in groin) hydrALAZINE Yes 50mg Q.12612284 Take 50 mg [facility] (APRESOLINE 7-19 [address]159[address] mouth 3 [address] ) 50 MG [...] area in groin) hydrALAZINE 0 Yes 50mg Q.47446819 Take 50 mg [facility] (APRESOLINE 7-19 [id number] mouth [address] ) 50 MG [...] area in groin) hydrALAZINE 0 Yes 50mg Q.54443944 Take 50 mg [facility] (APRESOLINE 7-19 [address]14[address] mouth 3 [address] ) 50 MG [...] (affected area in groin) hydrALAZINE Yes 50mg Q.84008552 Take 50 mg [facility] (APRESOLINE 7-[id number] mouth [address] ) 50 MG [...] area in groin) hydrALAZINE 0 Yes 50mg Q.10757799 Take 50 mg [facility] (APRESOLINE 7-19 [address]39[address] by mouth 3 st ) 50 MG [...] area in groin) hydrALAZINE 2021-0 Yes 50mg Q.11828142 Take 50 mg [facility] (APRESOLINE 7-19 [id number] [address] mouth [address] ) 50 MG [...] area in groin) hydrALAZINE 0 Yes 50mg Q.35885832 Take 50 mg [facility] (APRESOLINE 7-19 [id number] mouth [address] ) 50 MG [...] area in groin) hydrALAZINE 0 Yes 50mg Q.17862854 Take 50 mg [facility] (APRESOLINE 7-19 [id number] by mouth 3 [address] ) 50 MG [...] area in groin) hydrALAZINE 2020-0 Yes 50mg Q.87272468 Take 50 mg [facility] (APRESOLINE 7-19 [id number] [address] mouth 3 [address] ) 50 MG [...] tablet 25 daily. l nystatin-tr 2020-0 Yes [id number] Apply to [facility] iamcinolone 7-06 area(s) 3 ity of cream 00:00: (three) [place] 00 times Medical daily. Branch nystatin-tr 2021-0 Yes [id number] Apply to [facility] iamcinolone 7-06 area(s) 3 ity of cream 00:00: (three) [place] 00 times Medical daily. Branch nystatin-tr 2021-0 Yes [id number] Apply to [facility] iamcinolone 7-06 area(s) 3 ity of cream 00:00: (three) [place] 00 times Medical daily. Branch nystatin-tr 2021-0 Yes [id number] Apply to [facility] iamcinolone 7-06 area(s) 3 ity of cream 00:00: (three) [place] 00 times Medical daily. Branch nystatin-tr 2021-0 Yes [id number] Apply to [facility] iamcinolone 7-06 area(s) 3 ity of cream 00:00: (three) [place] 00 times Medical daily. Branch nystatin-tr 2021-0 Yes [id number] Apply to [facility] iamcinolone 7-06 area(s) 3 ity of cream 00:00: (three) [place] 00 times Medical daily. Branch nystatin-tr 2021-0 Yes [id number] Apply to [facility] iamcinolone 7-06 area(s) 3 ity of cream 00:00: (three) [place] 00 times Medical daily. Branch nystatin-tr 2021-0 Yes [id number] Apply to [facility] iamcinolone 7-06 area(s) 3 ity of cream 00:00: (three) [place] 00 times Medical daily. Branch nystatin-tr 2021-0 Yes [id number] Apply to [facility] iamcinolone 7-06 area(s) 3 ity of cream 00:00: (three) [place] 00 times Medical daily. Branch nystatin-tr 2021-0 Yes [id number] Apply to [facility] iamcinolone 7-06 area(s) 3 ity of cream 00:00: (three) [place] 00 times Medical daily. Branch nystatin-tr 2021-0 Yes [id number] Apply to [facility] iamcinolone 7-06 area(s) 3 ity of cream 00:00: (three) [place] 00 times Medical daily. Branch nystatin-tr 2021-0 Yes [id number] Apply to [facility] iamcinolone 7-06 area(s) 3 ity of cream 00:00: (three) [place] 00 times Medical daily. Branch nystatin-tr 2021-0 Yes [id number] Apply to [facility] iamcinolone 7-06 area(s) 3 ity of cream 00:00: (three) [place] 00 times Medical daily. Branch nystatin-tr 2021-0 Yes [id number] Apply to [facility] iamcinolone 7-06 area(s) 3 ity of cream 00:00: (three) [place] 00 times Medical daily. Branch nystatin-tr 2021-0 Yes [id number] Apply to [facility] iamcinolone 7-06 area(s) 3 ity of cream 00:00: (three) [place] 00 times Medical daily. Branch nystatin-tr 2021-0 Yes [id number] Apply to [facility] iamcinolone 7-06 area(s) 3 ity of cream 00:00: (three) [place] 00 times Medical daily. Branch nystatin-tr 2021-0 Yes [id number] Apply to [facility] iamcinolone 7-06 area(s) 3 ity of cream 00:00: (three) [place] 00 times Medical daily. Branch nystatin-tr 2021-0 Yes [id number] Apply to [facility] iamcinolone 7-06 area(s) 3 ity of cream 00:00: (three) [place] 00 times Medical daily. Branch nystatin-tr 2021-0 Yes [id number] Apply to [facility] iamcinolone 7-06 area(s) 3 ity of cream 00:00: (three) [place] 00 times Medical daily. Branch nystatin-tr 2021-0 Yes [id number] Apply to [facility] iamcinolone 7-06 area(s) 3 ity of cream 00:00: (three) [place] 00 times Medical daily. Branch nystatin-tr 2021-0 Yes [id number] Apply to [facility] iamcinolone 7-06 area(s) 3 ity of cream 00:00: (three) [place] 00 times Medical daily. Branch nystatin-tr 2021-0 Yes [id number] Apply to [facility] iamcinolone 7-06 area(s) 3 ity of cream 00:00: (three) [place] 00 times Medical daily. Branch nystatin-tr 2021-0 Yes [id number] Apply to [facility] iamcinolone 7-06 area(s) 3 ity of cream 00:00: (three) [place] 00 times Medical daily. Branch nystatin-tr 2021-0 Yes [id number] Apply to [facility] iamcinolone 7-06 area(s) 3 ity of cream 00:00: (three) [place] 00 times Medical daily. Branch nystatin-tr 2021-0 Yes [id number] Apply to [facility] iamcinolone 7-06 area(s) 3 ity of cream 00:00: (three) [place] 00 times Medical daily. Branch nystatin-tr 2021-0 Yes [id number] Apply to [facility] iamcinolone 7-06 area(s) 3 ity of cream 00:00: (three) [place] 00 times Medical daily. Branch nystatin-tr 2021-0 Yes [id number] Apply to [facility] iamcinolone 7-06 area(s) 3 ity of cream 00:00: (three) [place] 00 times Medical daily. Branch nystatin-tr 2021-0 Yes [id number] Apply to [facility] iamcinolone 7-06 area(s) 3 ity of cream 00:00: (three) [place] 00 times Medical daily. Branch budesonide- 1-0 2021- No 1{puff} QD Inhale 1 [facility] formoteroL 6-25 06-[address] (SYMBICORT) 14:37: 00:00 morning. H ospita 160-4.5 02 :00 l mcg/actuati on inhaler hydrALAZINE 2020-0 Yes [id number] 50mg Q.08439052 Take 1 [facility] (Apresoline 6-11 [id number] tablet (50 Health ) 50 MG 00:00: 3D mg total) tablet 00 by mouth 3 (three) times a day. hydrALAZINE 2020-0 Yes [id number] 50mg Q.21805064 Take 1 [facility] (Apresoline 6-11 [id number] tablet (50 Health ) 50 MG 00:00: [...] 00:00: ointment 00 nystatin 2020-0 2021- No [id number] Q.25D Take 5 mL [facility] (MYCOSTATIN 5-17 [...] ia 4-10 (Same as: l 14:00: Zoloft) [place] 00 pantoprazol No Notes: [place] lisa e 4-10 Tablet l 14:00: should not [place] 00 be chewed or crushed. (Same as: Protonix) Amiodarone No Notes: Memor ia 4-10 (Same as: l 14:00: Cordarone) [place] Amlodipine No Notes: [facility] ia 4-10 (Same as: l 14:00: Norvasc) [place] emtricitabi No Notes: Caesar lisa ne 200 [...] e 4-10 Tablet l 14:00: should not [place] 00 be chewed or crushed. (Same as: [...] ia 4-10 (Same as: l 14:00: Zoloft) [place] pantoprazol No Notes: [place] lisa e 4-10 Tablet l 14:00: should not [place] 00 be chewed or crushed. (Same as: Protonix) Amiodarone No Notes: Memor ia 4-10 (Same as: l 14:00: Cordarone) [place] Amlodipine No Notes: Memor ia 4-10 (Same as: l 14:00: Norvasc) [place] emtricitabi No Notes: Caesar lisa ne 200 [...] Memoria 4-10 Same as: l 02:00: Eliquis [place] Hydralazine No Notes: [place] lisa Hydrochlori 4-10 (Same as: l de 50 MG 02:00: Apresoline Her [place] Oral Tablet 00 ) May interfere w/enteral feedings Take With Food Sucralfate No Notes: May M emoria 4-10 interfere l 02:00: w/enteral [place] 00 feeds - Take 1 hr before [...] Memoria 4-10 Same as: l 02:00: Eliquis [place] 00 Hydralazine No Notes: Caesar lisa Hydrochlori 4-10 (Same as: l de 50 MG 02:00: Apresoline Her [place] Oral Tablet 00 ) May interfere w/enteral feedings Take With Food Sucralfate No Notes: May M emoria 4-10 interfere l 02:00: w/enteral [place] 00 feeds - Take 1 hr before or 2 hr after antacids, dairy pdt, meals & minerals - On empty stomach. For patients unable to swallow tablet, dissolve in 10mL - 30mL of water or juice and stir before giving. (Same As: Carafate) Saline No Notes: [facility] Flush 0.9% 4-10 (Same as: l 02:00: BD [place] 00 Posiflush) Eliquis No Notes: Memoria 4-10 Same as: l 02:00: Eliquis [place] Hydralazine No Notes: Caesar lisa Hydrochlori 4-10 (Same as: l de 50 MG 02:00: Apresoline Her [place] Oral Tablet 00 ) May interfere w/enteral feedings Take With Food Sucralfate No Notes: May M emoria 4-10 interfere l 02:00: w/enteral [place] 00 feeds - Take 1 hr before or 2 hr after antacids, dairy pdt, meals & minerals - On empty stomach. For patients unable to swallow tablet, dissolve in 10mL - 30mL of water or juice and stir before giving. (Same As: Carafate) Saline No Notes: [facility] Flush 0.9% 4-10 (Same as: l 02:00: BD [place] 00 Posiflush) Eliquis No Notes: Memoria 4-10 Same as: l 02:00: Eliquis [place] Hydralazine No Notes: Caesar lisa Hydrochlori 4-10 (Same as: l de 50 MG 02:00: Apresoline Her [place] Oral Tablet 00 ) May interfere w/enteral feedings Take With Food Sucralfate No Notes: May M emoria 4-10 interfere l 02:00: w/enteral [place] 00 feeds - Take 1 hr before [...] Memoria 4-10 Same as: l 02:00: Eliquis [place] 00 Hydralazine No Notes: Caesar lisa Hydrochlori 4-10 (Same as: l de 50 MG 02:00: Apresoline Her [place] Oral Tablet 00 ) May interfere w/enteral feedings Take With Food Sucralfate No Notes: May M emoria 4-10 interfere l 02:00: w/enteral [place] 00 feeds - Take 1 hr before [...] M emoria 4-10 interfere l 02:00: w/enteral [place] 00 feeds - Take 1 hr before or 2 hr after antacids, dairy pdt, meals & minerals - On empty stomach. For patients unable to swallow tablet, dissolve in 10mL - 30mL of water or juice and stir before giving. (Same As: Carafate) Saline No Notes: [facility] Flush 0.9% 4-10 (Same as: l 02:00: BD [place] Posiflush) Eliquis No Notes: [facility] 4-10 Same [...] not exceed l #3 00:12: 4gm/day of [place] acetaminop hen. (Same as: Tylenol with Codeine [...] not exceed l #3 00:12: 4gm/day of [place] 00 acetaminop hen. (Same as: Tylenol with Codeine # 3) acetaminoph No Notes: Do M emoria en-codeine 4-10 not exceed l #3 00:12: 4gm/day of [place] 00 acetaminop hen. (Same as: Tylenol with [...] tartrate - tab, l 22:00: Route: PO, [place] 00 Drug form: TAB, BID, Dosing Weight [...] oria 4-09 tab, l 22:00: Route: PO, [place] Drug form: TAB, BID, Dosing Weight 97.273, [...] tartrate 4-09 tab, l 22:00: Route: PO, [place] 00 Drug form: TAB, BID, Dosing Weight [...] tartrate 4-09 tab, l 22:00: Route: PO, [place] Drug form: TAB, BID, Dosing Weight 97.273, [...] oria 4-09 tab, l 22:00: Route: PO, [place] Drug form: TAB, BID, Dosing Weight 97.273, kg, Start date: 08/29/20 17:00:00 CDT, Duration: 30 day, Stop date: 09/28/20 9:00:00 CDT metoprolol 1-0 No 100 mg, 1 Me moria tartrate 4-09 tab, l 22:00: Route: PO, [place] Drug form: TAB, BID, Dosing Weight 97.273, [...] oria 4-09 tab, l 22:00: Route: PO, [place] 00 Drug form: TAB, BID, Dosing Weight [...] Notes: Memoria 4-09 (Same l 17:07: as:MORPhin [place] 00 e Sulfate) Morphine No Notes: Memoria [...] Notes: Memoria 08-29 (Same l 17:07: as:MORPhin [place] 00 e Sulfate) buPROPion 1-0 No 150 [...] tab, PO, l oral 15:27: Daily, # [place] enteric 00 30 tab, 0 coated Refill(s), tablet Pharmacy: [facility], 162.56, cm, 08/29/20 5:30:00 CDT, Height, 97.273, kg, 08/29/20 5:30:00 CDT, Weight pantoprazol 2020-0 Yes 40 mg = 1 M emoria e 40 mg 4-09 tab, PO, l oral 15:27: Daily, # [place] enteric 00 30 tab, 0 coated Refill(s), tablet Pharmacy: [facility] 149, 162.56, cm, 08/29/20 5:30:00 CDT, Height, 97.273, kg, 08/29/20 5:30:00 CDT, Weight pantoprazol 2020-0 Yes 40 mg = 1 M emoria e 40 mg 4-09 tab, PO, l oral 15:27: Daily, # [place] enteric 00 30 tab, 0 coated Refill(s), tablet Pharmacy: [facility] 149, 162.56, cm, 08/29/20 5:30:00 CDT, Height, 97.273, kg, 08/29/20 5:30:00 CDT, Weight pantoprazol 2020-0 Yes 40 mg = 1 M emoria e 40 mg 4-09 tab, PO, l oral 15:27: Daily, # [place] enteric 00 30 tab, 0 coated Refill(s), tablet Pharmacy: [facility] 149, 162.56, cm, 08/29/20 5:30:00 CDT, Height, 97.273, kg, 08/29/20 5:30:00 CDT, Weight pantoprazol 2020-0 Yes 40 mg = 1 M emoria e 40 mg 4-09 tab, PO, l oral 15:27: Daily, # [place] enteric 00 30 tab, 0 coated Refill(s), tablet Pharmacy: [facility] 149, 162.56, cm, 08/29/20 5:30:00 CDT, Height, 97.273, kg, 08/29/20 5:30:00 CDT, Weight pantoprazol 2020-0 Yes 40 mg = 1 M emoria e 40 mg 4-09 tab, PO, l oral 15:27: Daily, # [place] enteric 00 30 tab, 0 coated Refill(s), tablet Pharmacy: [facility] 149, 162.56, cm, 08/29/20 5:30:00 CDT, Height, 97.273, kg, 08/29/20 5:30:00 CDT, Weight pantoprazol 2020-0 Yes 40 mg = 1 M emoria e 40 mg 4-09 tab, PO, l oral 15:27: Daily, # [place] enteric 00 30 tab, 0 coated Refill(s), tablet Pharmacy: [facility] 149, 162.56, cm, [...] nn 00 tab, 0 Refill(s), Pharmacy: [facility] 149, 162.56, cm, [...] nn 00 tab, 0 Refill(s), Pharmacy: [facility] 149, 162.56, cm, 08/29/20 5:30:00 CDT, Height, 97.273, kg, 08/29/20 5:30:00 CDT, Weight pantoprazol 2020-0 No 40 mg = 1 M emoria e 40 mg 4-09 tab, PO, l oral 15:26: Daily, # [place] enteric 00 30 tab, 0 coated Refill(s) tablet sucralfate 2020-0 Yes 1 gm = 1 Mem oria 1 g oral 4-09 tab, PO, l tablet 15:26: Q12H, # 28 [place] nn 00 tab, 0 Refill(s), Pharmacy: [facility] 149, 162.56, cm, 08/29/20 5:30:00 CDT, Height, 97.273, kg, 08/29/20 5:30:00 CDT, Weight pantoprazol 2020-0 No 40 mg = 1 M emoria e 40 mg 4-09 tab, PO, l oral 15:26: Daily, # [place] enteric 00 30 tab, 0 coated Refill(s) tablet sucralfate 2020-0 Yes 1 gm = 1 Mem oria 1 g oral 4-09 tab, PO, l tablet 15:26: Q12H, # 28 [place]ylar nn 00 tab, 0 Refill(s), Pharmacy: [place] [id number], 162.56, cm, 08/29/20 5:30:00 CDT, Height, 97.273, [...] nn 00 tab, 0 Refill(s), Pharmacy: [facility] 149, 162.56, cm, [...] nn 00 tab, 0 Refill(s), Pharmacy: [facility] 149, 162.56, cm, 08/29/20 5:30:00 CDT, Height, 97.273, kg, 08/29/20 5:30:00 CDT, Weight pantoprazol No 40 mg = 1 M emoria e 40 mg 4-09 tab, PO, l oral 15:26: Daily, # [place] enteric 00 30 tab, 0 coated Refill(s) tablet sucralfate Yes 1 gm = 1 Mem oria 1 g oral 4-09 tab, PO, l tablet 15:26: Q12H, # 28 [place] nn 00 tab, 0 Refill(s), Pharmacy: [facility] 149, 162.56, cm, [...] 0.9% 4-09 (Same as: l 15:25: BD [place] 00 Posiflush) Lorazepam No Notes: Memori a 4-09 (Same as: l 15:25: Ativan) [place] 00 Lorazepam No Notes: Memori a 4-09 (Same as: l 15:25: Ativan) [place] Saline No Notes: [facility] Flush 0.9% 4-09 (Same as: l 15:25: BD [place] 00 Posiflush) Lorazepam No Notes: Memori a 4-09 (Same as: l 15:25: Ativan) [place] 00 Saline No Notes: [facility] Flush 0.9% [...] Drug form: l mg + 15:00: INJ, [place] Dosing Weight 97.3, kg, Start date: 08/29/20 [...] Drug form: l mg + 15:00: INJ, [place] 00 Dosing Weight 97.3, kg, Start date: 08/29/20 10:00:00 CDT, Stop date: 08/29/20 11:00:00 CDT Isuprel HCl 2020-0 No Route: IV, Memoria (ANES) 0.2 08-29 Drug form: l mg + 15:00: INJ, [place] 00 Dosing Weight 97.3, kg, Start date: 08/29/20 10:00:00 CDT, Stop date: 08/29/20 11:00:00 CDT Isuprel HCl 2020-0 No Route: IV, [facility] (ANES) 0.2 08-29 Drug form: l mg + 15:00: INJ, Dosing Weight 97.3, kg, Start date: 08/29/20 10:00:00 CDT, Stop date: 08/29/20 11:00:00 CDT Isuprel HCl 2020-0 No Route: IV, [facility] (ANES) 0.2 08-29 Drug form: l mg + 15:00: INJ, [place] 00 Dosing Weight 97.3, kg, Start date: [...] 08-29 Drug form: l 14:29: INJ, ONCE, [place] 00 Stop date: 08/29/20 9:29:00 CDT propofol [...] 08-29 Route: PO, l 14:01: Drug form: [place] 00 TAB, ONCE, Dosing Weight 97.273, kg, [...] oria ne 08-29 Route: l 14:01: IVP, [place] 00 Q5Min, Dosing Weight 97.273, kg, PRN [...] ia 08-29 Route: l 14:01: IVP, ONCE, [place] 00 Dosing Weight 97.273, kg, PRN Nausea [...] 08-29 Route: PO, l 14:01: Drug form: [place] 00 TAB, ONCE, Dosing Weight 97.273, kg, [...] ia 08-29 Route: l 14:01: IVP, ONCE, [place] 00 Dosing Weight 97.273, kg, PRN Nausea [...] 08-29 Route: PO, l 14:01: Drug form: [place] 00 TAB, ONCE, Dosing Weight 97.273, kg, [...] lisa 08-29 Route: l 14:01: IVP, PRN, [place] 00 Dosing Weight 97.273, kg, PRN Benzodiaze pine Reversal, Initial dose, Start date: 08/29/20 9:01:00 CDT, Duration: 30 day, Stop date: 09/28/20 9:00:00 CDT Naloxone 1-0 No 0.4 mg, Memori a 08-29 Route: l 14:01: IVP, [place] 00 Q2MIN, Dosing Weight 97.273, kg, PRN [...] Memori a 08-29 Route: l 14:01: IVP, [place] 00 Q5Min, Dosing Weight 97.273, kg, PRN Elevated BP, Start date: 08/29/20 9:01:00 CDT, Duration: 5 doses or times, Stop date: Limited # of times Acetaminoph 2021-0 No 1,000 mg, M emoria en 08-29 Route: PO, l 14:01: Drug form: [place] 00 TAB, ONCE, Dosing Weight 97.273, kg, [...] oria ne 08-29 Route: l 14:01: IVP, [place] 00 Q5Min, Dosing Weight 97.273, kg, PRN Pain Score 7-10, Start date: 08/29/20 9:01:00 CDT, Duration: 4 doses or times, Stop date: Limited # of times Labetalol 2021-0 No 10 mg, Memori a 08-29 Route: l 14:01: IVP, [place] 00 Q5Min, Dosing Weight 97.273, kg, PRN [...] oria ne 08-29 Route: l 14:01: IVP, [place] 00 Q5Min, Dosing Weight 97.273, kg, PRN [...] Memori a 08-29 Route: l 14:01: IVP, [place] 00 Q2MIN, Dosing Weight 97.273, kg, PRN [...] ia 08-29 Route: l 14:01: IVP, ONCE, [place] 00 Dosing Weight 97.273, kg, PRN Nausea [...] ia 08-29 Route: l 14:01: IVP, ONCE, [place] 00 Dosing Weight 97.273, kg, PRN Nausea [...] 08-29 Route: PO, l 14:01: Drug form: [place] 00 TAB, ONCE, Dosing Weight 97.273, kg, [...] lisa 08-29 Route: l 14:01: IVP, PRN, [place] 00 Dosing Weight 97.273, kg, PRN Benzodiaze [...] Memori a 08-29 Route: l 14:01: IVP, [place] 00 Q5Min, Dosing Weight 97.273, kg, PRN Elevated BP, Start date: 08/29/20 9:01:00 CDT, Duration: 5 doses or times, Stop date: Limited # of times Acetaminoph 2020-0 No 1,000 mg, M emoria en 08-29 Route: PO, l 14:01: Drug form: [place] 00 TAB, ONCE, Dosing Weight 97.273, kg, [...] 08-29 Drug form: l 13:42: INJ, ONCE, [place] Stop date: 08/29/20 8:42:00 CDT fentaNYL 2020-0 No Route: IV, Mem oria (ANES) 08-29 Drug form: l 13:42: INJ, ONCE, [place] Stop date: 08/29/20 8:42:00 CDT fentaNYL 2020-0 No Route: IV, Mem oria (ANES) 08-29 Drug form: l 13:42: INJ, ONCE, [place] Stop date: 08/29/20 8:42:00 CDT norepinephr 2020-0 No Route: IV, Memoria ine (ANES) 08-29 Drug form: l 10 13:15: INJ, Start [place] microgram date: 08/29/20 8:15:00 CDT, Stop date: 08/29/20 9:15:00 CDT norepinephr 2020-0 No Route: IV, Memoria ine (ANES) 08-29 Drug form: l 10 13:15: INJ, Start [place] microgram date: 08/29/20 8:15:00 CDT, Stop date: 08/29/20 9:15:00 CDT norepinephr 2020-0 No Route: IV, Memoria ine (ANES) 08-29 Drug form: l 10 13:15: INJ, Start [place] microgram date: 08/29/20 8:15:00 CDT, Stop date: 08/29/20 9:15:00 CDT norepinephr 2020-0 No Route: IV, Memoria ine (ANES) 08-29 Drug form: l 10 13:15: INJ, Start [place] microgram date: 08/29/20 8:15:00 CDT, Stop date: 08/29/20 9:15:00 CDT norepinephr 2020-0 No Route: IV, Memoria ine (ANES) 08-29 Drug form: l 10 13:15: INJ, Start [place] microgram 00 date: 08/29/20 8:15:00 CDT, Stop date: 08/29/20 9:15:00 CDT norepinephr 2020-0 No Route: IV, Memoria ine (ANES) 08-29 Drug form: l 10 13:15: INJ, Start [place] microgram 00 date: 08/29/20 8:15:00 CDT, Stop date: 08/29/20 9:15:00 CDT norepinephr 2020-0 No Route: IV, Memoria ine (ANES) 4-09 Drug form: l 10 13:15: INJ, Start [place] microgram 00 date: 08/29/20 8:15:00 CDT, Stop date: 08/29/20 9:15:00 CDT Sodium 2020-0 No Route: IV, Memor ia Chloride 4-09 Total l 0.9% IV 12:30: Volume: [place] (ANES) 1000 00 1,000, mL Start date: 08/29/20 7:30:00 CDT, Stop date: 08/29/20 8:30:00 CDT Sodium 2020-0 No Route: IV, Memor ia Chloride 4-09 Total l 0.9% IV 12:30: Volume: [place] (ANES) 1000 00 1,000, mL Start date: 08/29/20 7:30:00 CDT, Stop date: 08/29/20 8:30:00 CDT Sodium 2020-0 No Route: IV, Memor ia Chloride 4-09 Total l 0.9% IV 12:30: Volume: Amrty (ANES) 1000 00 1,000, mL Start date: 08/29/20 7:30:00 CDT, Stop date: 08/29/20 8:30:00 CDT Sodium 2021-0 No Route: IV, Memor ia Chloride 4-09 Total l 0.9% IV 12:30: Volume: [place] (ANES) 1000 00 1,000, mL Start date: 08/29/20 7:30:00 CDT, Stop date: 08/29/20 8:30:00 CDT Sodium 2020-0 No Route: IV, Memor ia Chloride 4-09 Total l 0.9% IV 12:30: Volume: [place] (ANES) 1000 00 1,000, mL Start date: 08/29/20 7:30:00 CDT, Stop date: 08/29/20 8:30:00 CDT Sodium 2020-0 No Route: IV, Memor ia Chloride 4-09 Total l 0.9% IV 12:30: Volume: [place] (ANES) 1000 00 1,000, mL Start date: 08/29/20 7:30:00 CDT, Stop date: 08/29/20 8:30:00 CDT Sodium No Route: IV, Memor ia Chloride 4-09 Total l 0.9% IV 12:30: Volume: [place] (ANES) 1000 00 1,000, mL Start date: [...] PO, l Hydrochlori 11:42: Q24H, # 30 [place] de 150 MG 00 tab, 0 Extended [...] 4- Q12H, tab, l Tablet 11:41: 0 [place] [Eliquis] 00 Refill(s), For Atrial Fibrilatio n apixaban 2020-0 Yes 5 mg, PO, Me moria MG Oral 4-09 Q12H, tab, l Tablet 11:41: 0 [place] [Eliquis] 00 Refill(s), For Atrial Fibrilatio n apixaban 2020-0 Yes 5 mg, PO, Me moria MG Oral 4-09 Q12H, tab, l Tablet 11:41: 0 [place] [Eliquis] 00 Refill(s), For Atrial Fibrilatio n apixaban 5 2020-0 Yes 5 mg, PO, Me moria MG Oral 409 Q12H, tab, l Tablet 11:41: 0 [place] [Eliquis] 00 Refill(s), For Atrial Fibrilatio n apixaban 5 2020-0 Yes 5 mg, PO, Me moria MG Oral 09 Q12H, tab, l Tablet 11:41: 0 [place] [Eliquis] 00 Refill(s), For Atrial Fibrilatio n apixaban 5 2020-0 Yes 5 mg, PO, Me moria MG Oral 08-29 Q12H, tab, l Tablet 11:41: 0 [place] [Eliquis] 00 Refill(s), For Atrial Fibrilatio n apixaban 5 2020-0 Yes 5 mg, PO, Me moria MG Oral 08-29 Q12H, tab, l Tablet 11:41: 0 [place] [Eliquis] 00 Refill(s), For Atrial Fibrilatio n AMIODarone 0 Yes 200 mg = 1 M emoria 200 mg oral 09 tab, PO, l tablet 11:38: Daily, # [place] 00 90 tab, 3 Refill(s) AMIODarone 2020-0 Yes 200 mg = 1 M em[place] 200 mg oral 4-09 tab, PO, l tablet 11:38: Daily, # [place] 00 90 tab, 3 Refill(s) AMIODarone 2020-0 [...] tab, PO, l tablet 11:38: Daily, # [place] 00 90 tab, 3 Refill(s) AMIODarone Yes 200 mg = 1 M em[place] 200 mg oral 4- tab, PO, l tablet 11:38: Daily, # [place] 00 90 tab, 3 Refill(s) normal No [...] 09/28/20 5:29:00 CDT, 2.13, m2, 0 amiodarone 2020-0 Yes 200mg Take 1 Univ ers 200 mg 08-29 tablet by ity of tablet 00:00: mouth. [place] [facility] apixaban 5 2020-0 Yes 5 mg, PO, Un matt mg tablet 08-29 Q12H, tab, ity of 00:00: 0 Refill(s), [facility] Fibrilatio n apixaban 5 2020-0 Yes 5 mg, PO, Un matt mg tablet 08-29 Q12H, tab, ity of 00:00: 0 [place] [id number] Refill(s), [facility] Fibrilatio n apixaban 2020-0 Yes 5 mg, PO, Un matt mg tablet 08-29 Q12H, tab, ity of 00:00: 0 [place] 00 Refill(s), [facility] Fibrilatio n amiodarone 2022- No 200mg Take 1 Uni vers 200 mg 08-29 tablet by ity of tablet 00:00: 00:00 mouth. [place] 00 :00 [facility] pantoprazol 2020- No Metho di [...] mg EC 1-11 ity of tablet 00:00: [place] [facility] atorvastati 2019-05 Yes AT BEDTIME Univers n 80 mg 1-11 ity of tablet 00:00: [place] [facility] aspirin 81 2019-05 Yes DAILY Univer s mg EC 1-11 ity of tablet 00:00: [place] [facility] aspirin 81 2019-05 Yes DAILY Univer s mg EC 1-11 ity of tablet 00:00: [place] [facility] atorvastati 2019-05- No AT BEDTIME Univers n 80 mg 1-11 10- ity of tablet 00:00: 00:00 [place] 00 :00 [facility] lisinopril 2019-05 Yes 40mg Take 40 mg [...] triamterene Yes 1{each} 1 each. [place] -hydroCHLOR 1- [...] Completed Unive rsity of PFIZER VACCINE 00:00:00 [facility] SARS-COV-2 COVID-19 2020-07-23 Completed Unive rsity of PFIZER VACCINE 00:00:00 [facility] SARS-COV-2 COVID-19 2020-07-23 Completed Unive rsity of PFIZER VACCINE 00:00:00 [facility] SARS-COV-2 COVID-19 2020-07-23 Completed Unive rsity of PFIZER VACCINE 00:00:00 [facility] SARS-COV-2 COVID-19 2020-07-23 Completed Unive rsity of PFIZER VACCINE 00:00:00 [facility] SARS-COV-2 COVID-19 2020-07-23 Completed Unive rsity of PFIZER VACCINE 00:00:00 [facility] SARS-COV-2 COVID-19 2020-07-23 Completed Unive rsity of PFIZER VACCINE 00:00:00 [facility] SARS-COV-2 COVID-19 2020-07-23 Completed Unive rsity of PFIZER VACCINE 00:00:00 [facility] SARS-COV-2 COVID-19 2020-07-23 Completed Unive rsity of PFIZER VACCINE 00:00:00 [facility] SARS-COV-2 COVID-19 2020-07-23 Completed Unive rsity of PFIZER VACCINE 00:00:00 [facility] SARS-COV-2 COVID-19 2020-07-23 Completed Unive rsity of PFIZER VACCINE 00:00:00 [facility] SARS-COV-2 COVID-19 2020-07-23 Completed Unive rsity of PFIZER VACCINE 00:00:00 [facility] SARS-COV-2 COVID-19 2020-07-23 Completed Unive rsity of PFIZER VACCINE 00:00:00 [facility] SARS-COV-2 COVID-19 2020-07-23 Completed Unive rsity of PFIZER VACCINE 00:00:00 [facility] SARS-COV-2 COVID-19 2020-07-23 Completed Unive rsity of PFIZER VACCINE 00:00:00 [facility] SARS-COV-2 COVID-19 2020-07-23 Completed Unive rsity of PFIZER VACCINE 00:00:00 [facility] SARS-COV-2 COVID-19 2020-07-23 Completed Unive rsity of PFIZER VACCINE 00:00:00 [facility] SARS-COV-2 COVID-19 2020-07-23 Completed Unive rsity of PFIZER VACCINE 00:00:00 [facility] SARS-COV-2 COVID-19 2020-07-23 Completed Unive rsity of PFIZER VACCINE 00:00:00 [facility] SARS-COV-2 COVID-19 2020-07-23 Completed Unive rsity of PFIZER VACCINE 00:00:00 [facility] PFIZER COVID-19 2020-07-23 Completed [facility] MRNA VACCINATION 00:00:00 [facility] PFIZER COVID-19 2020-07-23 Completed [facility] MRNA VACCINATION 00:00:00 [facility] PFIZER COVID-19 2020-07-23 Completed [facility] MRNA VACCINATION 00:00:00 [facility] PFIZER COVID-19 2020-07-23 Completed [facility] MRNA VACCINATION 00:00:00 [facility] PFIZER COVID-19 2020-07-23 Completed [facility] MRNA VACCINATION 00:00:00 [facility] PFIZER COVID-19 2020-07-23 Completed [facility] MRNA VACCINATION 00:00:00 [facility] PFIZER COVID-19 2020-07-23 Completed [facility] MRNA VACCINATION 00:00:00 [facility] PFIZER COVID-19 2020-07-23 Completed [facility] MRNA VACCINATION 00:00:00 [facility] PFIZER COVID-19 2020-07-23 Completed [facility] MRNA VACCINATION 00:00:00 [facility] PFIZER COVID-19 2020-07-23 Completed [facility] MRNA VACCINATION 00:00:00 [facility] PFIZER COVID-19 2020-07-23 Completed [facility] MRNA VACCINATION 00:00:00 [facility] PFIZER COVID-19 2020-07-23 Completed [facility] MRNA VACCINATION 00:00:00 [facility] PFIZER COVID-19 2020-07-23 Completed [facility] MRNA VACCINATION 00:00:00 [facility] PFIZER COVID-19 2020-07-23 Completed [facility] MRNA VACCINATION 00:00:00 [facility] PFIZER COVID-19 2020-07-23 Completed [facility] MRNA VACCINATION 00:00:00 [facility] PFIZER COVID-19 2020-07-23 Completed [facility] MRNA VACCINATION 00:00:00 [facility] PFIZER COVID-19 2020-07-23 Completed [facility] MRNA VACCINATION 00:00:00 [facility] PFIZER COVID-19 2020-07-23 Completed [facility] MRNA VACCINATION 00:00:00 [facility] PFIZER COVID-19 2020-07-23 Completed [facility] MRNA VACCINATION 00:00:00 [facility] PFIZER COVID-19 2020-07-23 Completed [facility] MRNA VACCINATION 00:00:00 [facility] PFIZER COVID-19 2020-07-23 Completed [facility] MRNA VACCINATION 00:00:00 [facility] PFIZER COVID-19 2020-07-23 Completed [facility] MRNA VACCINATION 00:00:00 [facility] PFIZER COVID-19 2020-07-23 Completed [facility] MRNA VACCINATION 00:00:00 [facility] PEG COVID-19 2020-07-23 Completed [facility] MRNA VACCINATION 00:00:00 [facility] PEG COVID-19 2020-07-23 Completed [facility] MRNA VACCINATION 00:00:00 [facility] PFIZER COVID-19 2020-07-23 Completed [facility] MRNA VACCINATION 00:00:00 [facility] PFIZER COVID-19 2020-07-23 Completed [facility] MRNA VACCINATION 00:00:00 [facility] PFIZER COVID-19 2020-07-23 Completed [facility] MRNA VACCINATION 00:00:00 [facility] PFIZER COVID-19 2020-07-23 Completed [facility] MRNA VACCINATION 00:00:00 [facility] PFIZER COVID-19 2020-07-23 Completed [facility] MRNA VACCINATION 00:00:00 [facility] PFIZER COVID-19 2020-07-23 Completed [facility] MRNA VACCINATION 00:00:00 [facility] PFIZER COVID-19 2020-07-23 Completed [facility] MRNA VACCINATION 00:00:00 [facility] PFIZER COVID-19 2020-07-23 Completed [facility] MRNA VACCINATION 00:00:00 [facility] PFIZER COVID-19 2020-07-23 Completed [facility] MRNA VACCINATION 00:00:00 [facility] PFIZER COVID-19 2020-07-23 Completed [facility] MRNA VACCINATION 00:00:00 [facility] PFIZER COVID-19 2020-07-23 Completed [facility] MRNA VACCINATION 00:00:00 [facility] PFIZER COVID-19 2020-07-23 Completed [facility] MRNA VACCINATION 00:00:00 [facility] PFIZER COVID-19 2020-07-23 Completed [facility] MRNA VACCINATION 00:00:00 [facility] PFIZER COVID-19 2020-07-23 Completed [facility] MRNA VACCINATION 00:00:00 [facility] PFIZER COVID-19 2020-07-23 Completed [facility] MRNA VACCINATION 00:00:00 [facility] PFIZER COVID-19 2020-07-23 Completed [facility] MRNA VACCINATION 00:00:00 [facility] PFIZER COVID-19 2020-07-23 Completed [facility] MRNA VACCINATION 00:00:00 [facility] PFIZER COVID-19 2020-07-23 Completed [facility] MRNA VACCINATION 00:00:00 [facility] PFIZER COVID-19 2020-07-23 Completed [facility] MRNA VACCINATION 00:00:00 [facility] PFIZER COVID-19 2020-07-23 Completed [facility] MRNA VACCINATION 00:00:00 [facility] PFIZER COVID-19 2020-07-23 Completed [facility] MRNA VACCINATION 00:00:00 [facility] PFIZER COVID-19 2020-07-23 Completed [facility] MRNA VACCINATION 00:00:00 [facility] PFIZER COVID-19 2020-07-23 Completed [facility] MRNA VACCINATION 00:00:00 [facility] PFIZER COVID-19 2020-07-23 Completed [facility] MRNA VACCINATION 00:00:00 [facility] PFIZER COVID-19 2020-07-23 Completed [facility] MRNA VACCINATION 00:00:00 [facility] PFIZER COVID-19 2020-07-23 Completed [facility] MRNA VACCINATION 00:00:00 [facility] PFIZER COVID-19 2020-07-23 Completed [facility] MRNA VACCINATION 00:00:00 [facility] PFIZER COVID-19 2020-07-23 Completed [facility] MRNA VACCINATION 00:00:00 [facility] PFIZER COVID-19 2020-07-23 Completed [facility] MRNA VACCINATION 00:00:00 [facility] PFIZER COVID-19 2020-07-23 Completed [facility] MRNA VACCINATION 00:00:00 [facility] PFIZER COVID-19 2020-07-23 Completed [facility] MRNA VACCINATION 00:00:00 [facility] PFIZER COVID-19 2020-07-23 Completed [facility] MRNA VACCINATION 00:00:00 [facility] PFIZER COVID-19 2020-07-23 Completed [facility] MRNA VACCINATION 00:00:00 [facility] PFIZER COVID-19 2020-07-23 Completed [facility] MRNA VACCINATION 00:00:00 [facility] PFIZER COVID-19 2020-07-23 Completed [facility] MRNA VACCINATION 00:00:00 [facility] PFIZER COVID-19 2020-07-23 Completed [facility] VACCINATION 00:00:00 Hospital PFIZER COVID-19 2020-07-23 Completed [facility] M[facility] VACCINATION 00:00:00 Hospital PFIZER COVID-19 2020-07-23 Completed [facility] MRNA VACCINATION 00:00:00 [facility] PFIZER COVID-19 2020-07-23 Completed [facility] MRNA VACCINATION 00:00:00 Hospital PFIZER COVID-19 2020-07-23 Completed [facility] MRNA VACCINATION 00:00:00 [facility] PFIZER COVID-19 2020-07-23 Completed [facility] MRNA VACCINATION 00:00:00 [facility] PFIZER COVID-19 2020-07-23 Completed [facility] MRNA VACCINATION 00:00:00 [facility] PFIZER COVID-19 2020-07-23 Completed [facility] MRNA VACCINATION 00:00:00 [facility] SARS-COV-2 COVID-19 2020-07-02 Completed Unive rsity of PFIZER VACCINE 00:00:00 [facility] SARS-COV-2 COVID-19 2020-07-02 Completed Unive rsity of PFIZER VACCINE 00:00:00 [facility] SARS-COV-2 COVID-19 2020-07-02 Completed Unive rsity of PFIZER VACCINE 00:00:00 [facility] SARS-COV-2 COVID-19 2020-07-02 Completed Unive rsity of PFIZER VACCINE 00:00:00 [facility] SARS-COV-2 COVID-19 2020-07-02 Completed Unive rsity of PFIZER VACCINE 00:00:00 [facility] SARS-COV-2 COVID-19 2020-07-02 Completed Unive rsity of PFIZER VACCINE 00:00:00 [facility] SARS-COV-2 COVID-19 2020-07-02 Completed Unive rsity of PFIZER VACCINE 00:00:00 [facility] SARS-COV-2 COVID-19 2020-07-02 Completed Unive rsity of PFIZER VACCINE 00:00:00 [facility] SARS-COV-2 COVID-19 2020-07-02 Completed Unive rsity of PFIZER VACCINE 00:00:00 [facility] SARS-COV-2 COVID-19 2020-07-02 Completed Unive rsity of PFIZER VACCINE 00:00:00 [facility] SARS-COV-2 COVID-19 2020-07-02 Completed Unive rsity of PFIZER VACCINE 00:00:00 [facility] SARS-COV-2 COVID-19 2020-07-02 Completed Unive rsity of PFIZER VACCINE 00:00:00 [facility] SARS-COV-2 COVID-19 2020-07-02 Completed Unive rsity of PFIZER VACCINE 00:00:00 [facility] SARS-COV-2 COVID-19 2020-07-02 Completed Unive rsity of PFIZER VACCINE 00:00:00 [facility] SARS-COV-2 COVID-19 2020-07-02 Completed Unive rsity of PFIZER VACCINE 00:00:00 [facility] SARS-COV-2 COVID-19 2020-07-02 Completed Unive rsity of PFIZER VACCINE 00:00:00 [facility] SARS-COV-2 COVID-19 2020-07-02 Completed Unive rsity of PFIZER VACCINE 00:00:00 [facility] SARS-COV-2 COVID-19 2020-07-02 Completed Unive rsity of PFIZER VACCINE 00:00:00 [facility] SARS-COV-2 COVID-19 2020-07-02 Completed Unive rsity of PFIZER VACCINE 00:00:00 [facility] SARS-COV-2 COVID-19 2020-07-02 Completed Unive rsity of PFIZER VACCINE 00:00:00 [facility] PFIZER COVID-19 2020-07-02 Completed [facility] MRNA VACCINATION 00:00:00 [facility] PFIZER COVID-19 2020-07-02 Completed [facility] MRNA VACCINATION 00:00:00 [facility] PFIZER COVID-19 2020-07-02 Completed [facility] MRNA VACCINATION 00:00:00 [facility] PFIZER COVID-19 2020-07-02 Completed [facility] MRNA VACCINATION 00:00:00 [facility] PFIZER COVID-19 2020-07-02 Completed [facility] MRNA VACCINATION 00:00:00 [facility] PFIZER COVID-19 2020-07-02 Completed [facility] MRNA VACCINATION 00:00:00 [facility] PFIZER COVID-19 2020-07-02 Completed [facility] MRNA VACCINATION 00:00:00 [facility] PFIZER COVID-19 2020-07-02 Completed [facility] MRNA VACCINATION 00:00:00 [facility] PFIZER COVID-19 2020-07-02 Completed [facility] MRNA VACCINATION 00:00:00 [facility] PFIZER COVID-19 2020-07-02 Completed [facility] MRNA VACCINATION 00:00:00 [facility] PFIZER COVID-19 2020-07-02 Completed [facility] MRNA VACCINATION 00:00:00 [facility] PFIZER COVID-19 2020-07-02 Completed [facility] MRNA VACCINATION 00:00:00 [facility] PFIZER COVID-19 2020-07-02 Completed [facility] MRNA VACCINATION 00:00:00 [facility] PFIZER COVID-19 2020-07-02 Completed [facility] MRNA VACCINATION 00:00:00 [facility] PFIZER COVID-19 2020-07-02 Completed [facility] MRNA VACCINATION 00:00:00 [facility] PFIZER COVID-19 2020-07-02 Completed [facility] MRNA VACCINATION 00:00:00 [facility] PFIZER COVID-19 2020-07-02 Completed [facility] MRNA VACCINATION 00:00:00 [facility] PFIZER COVID-19 2020-07-02 Completed [facility] MRNA VACCINATION 00:00:00 [facility] PFIZER COVID-19 2020-07-02 Completed [facility] MRNA VACCINATION 00:00:00 [facility] PFIZER COVID-19 2020-07-02 Completed [facility] MRNA VACCINATION 00:00:00 [facility] PFIZER COVID-19 2020-07-02 Completed [facility] MRNA VACCINATION 00:00:00 [facility] PFIZER COVID-19 2020-07-02 Completed [facility] MRNA VACCINATION 00:00:00 [facility] PFIZER COVID-19 2020-07-02 Completed [facility] MRNA VACCINATION 00:00:00 [facility] PFIZER COVID-19 2020-07-02 Completed [facility] MRNA VACCINATION 00:00:00 [facility] PFIZER COVID-19 2020-07-02 Completed [facility] MRNA VACCINATION 00:00:00 [facility] PFIZER COVID-19 2020-07-02 Completed [facility] MRNA VACCINATION 00:00:00 [facility] PFIZER COVID-19 2020-07-02 Completed [facility] MRNA VACCINATION 00:00:00 [facility] PFIZER COVID-19 2020-07-02 Completed [facility] MRNA VACCINATION 00:00:00 [facility] PFIZER COVID-19 2020-07-02 Completed [facility] MRNA VACCINATION 00:00:00 [facility] PFIZER COVID-19 2020-07-02 Completed [facility] MRNA VACCINATION 00:00:00 [facility] PFIZER COVID-19 2020-07-02 Completed [facility] MRNA VACCINATION 00:00:00 [facility] PFIZER COVID-19 2020-07-02 Completed [facility] MRNA VACCINATION 00:00:00 [facility] PFIZER COVID-19 2020-07-02 Completed [facility] MRNA VACCINATION 00:00:00 [facility] PFIZER COVID-19 2020-07-02 Completed [facility] MRNA VACCINATION 00:00:00 [facility] PFIZER COVID-19 2020-07-02 Completed [facility] MRNA VACCINATION 00:00:00 [facility] PFIZER COVID-19 2020-07-02 Completed [facility] MRNA VACCINATION 00:00:00 [facility] PFIZER COVID-19 2020-07-02 Completed [facility] MRNA VACCINATION 00:00:00 [facility] PFIZER COVID-19 2020-07-02 Completed [facility] MRNA VACCINATION 00:00:00 [facility] PFIZER COVID-19 2020-07-02 Completed [facility] MRNA VACCINATION 00:00:00 [facility] PFIZER COVID-19 2020-07-02 Completed [facility] MRNA VACCINATION 00:00:00 [facility] PFIZER TRAYID-19 2020-07-02 Completed [facility] MRNA VACCINATION 00:00:00 [facility] PFIZER COVID-19 2020-07-02 Completed [facility] MRNA VACCINATION 00:00:00 [facility] PFIZER COVID-19 2020-07-02 Completed [facility] MRNA VACCINATION 00:00:00 [facility] PFIZER COVID-19 2020-07-02 Completed [facility] MRNA VACCINATION 00:00:00 [facility] PFIZER COVID-19 2020-07-02 Completed [facility] MRNA VACCINATION 00:00:00 [facility] PFIZER COVID-19 2020-07-02 Completed [facility] MRNA VACCINATION 00:00:00 [facility] PFIZER COVID-19 2020-07-02 Completed [facility] MRNA VACCINATION 00:00:00 [facility] PFIZER COVID-19 2020-07-02 Completed [facility] MRNA VACCINATION 00:00:00 [facility] PFIZER COVID-19 2020-07-02 Completed [facility] MRNA VACCINATION 00:00:00 [facility] PFIZER COVID-19 2020-07-02 Completed [facility] MRNA VACCINATION 00:00:00 [facility] PFIZER COVID-19 2020-07-02 Completed [facility] MRNA VACCINATION 00:00:00 [facility] PFIZER COVID-19 2020-07-02 Completed [facility] MRNA VACCINATION 00:00:00 [facility] PFIZER COVID-19 2020-07-02 Completed [facility] MRNA VACCINATION 00:00:00 [facility] PFIZER COVID-19 2020-07-02 Completed [facility] MRNA VACCINATION 00:00:00 [facility] PFIZER COVID-19 2020-07-02 Completed [facility] MRNA VACCINATION 00:00:00 [facility] PFIZER COVID-19 2020-07-02 Completed [facility] MRNA VACCINATION 00:00:00 [facility] PFIZER COVID-19 2020-07-02 Completed [facility] MRNA VACCINATION 00:00:00 [facility] PFIZER COVID-19 2020-07-02 Completed [facility] MRNA VACCINATION 00:00:00 [facility] PFIZER COVID-19 2020-07-02 Completed [facility] MRNA VACCINATION 00:00:00 [facility] PFIZER COVID-19 2020-07-02 Completed [facility] MRNA VACCINATION 00:00:00 [facility] PFIZER COVID-19 2020-07-02 Completed [facility] MRNA VACCINATION 00:00:00 [facility] PFIZER COVID-19 2020-07-02 Completed [facility] MRNA VACCINATION 00:00:00 [facility] PFIZER COVID-19 2020-07-02 Completed [facility] MRNA VACCINATION 00:00:00 [facility] PFIZER COVID-19 2020-07-02 Completed [facility] MRNA VACCINATION 00:00:00 [facility] PFIZER COVID-19 2020-07-02 Completed [facility] MRNA VACCINATION 00:00:00 [facility] PFIZER COVID-19 2020-07-02 Completed [facility] MRNA VACCINATION 00:00:00 [facility] PFIZER COVID-19 2020-07-02 Completed [facility] MRNA VACCINATION 00:00:00 [facility] PFIZER COVID-19 2020-07-02 Completed [facility] MRNA VACCINATION 00:00:00 [facility] Influenza Virus 2017-03-08 Completed [facility]00 [facility] Influenza Virus 2017-03-08 Completed [facility] 00[facility]00:00 [facility] Influenza Virus 2017-03-08 Completed [facility] Vaccine 00[facility]00:00 [facility] Influenza Virus 2017-03-08 Completed [facility] Vaccine 00[facility]00:00 [facility] Influenza Virus 2017-03-08 Completed [facility] Vaccine 00:00:00 [facility] Influenza Virus 2017-03-08 Completed [facility] Vaccine 00:00:00 [facility] Influenza Virus 2017-03-08 Completed [facility] Vaccine 00:00:00 [facility] Influenza Virus 2017-03-08 Completed [facility] Vaccine 00:00:00 [facility] Influenza Virus 2017-03-08 Completed [facility] Vaccine 00:00:00 [facility] Influenza Virus 2017-03-08 Completed [facility] Vaccine 00:00:00 [facility] Influenza Virus 2017-03-08 Completed [facility] Vaccine 00:00:00 [facility] Influenza Virus 2017-03-08 Completed [facility] Vaccine 00:00:00 [facility] Influenza Virus 2017-03-08 Completed [facility] Vaccine 00:00:00 [facility] Influenza Virus 2017-03-08 Completed [facility] Vaccine 00:00:00 [facility] Influenza Virus 2017-03-08 Completed [facility] Vaccine 00:00:00 [facility] Influenza Virus 2017-03-08 Completed [facility] Vaccine 00:00:00 [facility] Influenza Virus 2017-03-08 Completed [facility] Vaccine 00:00:00 [facility] Influenza Virus 2017-03-08 Completed [facility] Vaccine 00:00:00 [facility] Influenza Virus 2017-03-08 Completed [facility] Vaccine 00:00:00 [facility] Influenza Virus 2017-03-08 Completed [facility] Vaccine 00:00:00 [facility] Influenza Virus 2017-03-08 Completed [facility] Vaccine 00:00:00 [facility] Influenza Virus 2017-03-08 Completed [facility] Vaccine 00:00:00 [facility] Influenza Virus 2017-03-08 Completed [facility] Vaccine 00:00:00 [facility] Influenza Virus 2017-03-08 Completed [facility] Vaccine 00:00:00 [facility] Influenza Virus 2014-01-30 Completed [facility] Vaccine (3+ yrs) 00:00:00 [facility] Pneumococcal 13 2014-01-30 Completed [facility] of Conjugate, PCV13 00:00:00 [facility] (Prevnar 13) Branch Influenza Virus 2014-01-30 Completed [facility] Vaccine (3+ yrs) 00:00:[facility] Pneumococcal 13 2014-01-30 Completed [facility] of Conjugate, PCV13 00:00:00 [facility] (Prevnar 13) Branch Influenza Virus 2014-01-30 Completed [facility] Vaccine (3+ yrs) 00:00:00 [facility] Pneumococcal 13 2014-01-30 Completed [facility] of Conjugate, PCV13 00:00:00 [facility] (Prevnar 13) [place] Influenza Virus 2014-01-30 Completed [facility] Vaccine (3+ yrs) 00:00:00 [place] [facility] Pneumococcal 13 2014-01-30 Completed [facility] Conjugate, PCV13 00:00:00 [place] [facility] (Prevnar 13) [facility] Influenza Virus 2014-01-30 Completed [facility] Vaccine (3+ yrs) 00:00:00 [facility] Pneumococcal 13 2014-01-30 Completed [facility] Conjugate, PCV13 00:00:00 [place] [facility] (Prevnar 13) [facility] Influenza Virus 2014-01-30 Completed [facility] Vaccine (3+ yrs) 00:00:00 [facility] Pneumococcal 13 2014-01-30 Completed [facility] Conjugate, PCV13 00:00:00 [place] [facility] (Prevnar 13) [facility] Influenza Virus 2014-01-30 Completed [facility] Vaccine (3+ yrs) 00:00:00 [facility] Pneumococcal 13 2014-01-30 Completed [facility] Conjugate, PCV13 00:00:00 [place] [facility] (Prevnar 13) [facility] Influenza Virus 2014-01-30 Completed [facility] Vaccine (3+ yrs) 00:00:00 [facility] Pneumococcal 13 2014-01-30 Completed [facility] of Conjugate, PCV13 00:00:00 [place] [facility] (Prevnar 13) [facility] Influenza Virus 2014-01-30 Completed [facility] Vaccine (3+ yrs) 00:00:00 [place] [facility] Pneumococcal 13 2014-01-30 Completed [facility] Conjugate, PCV13 00:00:00 [place] [facility] (Prevnar 13) [facility] Influenza Virus 2014-01-30 Completed [facility] Vaccine (3+ yrs) 00:00:00 [facility] Pneumococcal 13 2014-01-30 Completed [facility] of Conjugate, PCV13 00:00:00 [place] [facility] (Prevnar 13) [facility] Influenza Virus 2014-01-30 Completed [facility] Vaccine (3+ yrs) 00:00:00 [facility] Pneumococcal 13 2014-01-30 Completed [facility] of Conjugate, PCV13 00:00:00 [facility] (Prevnar 13) Branch Influenza Virus 2014-01-30 Completed [facility] Vaccine (3+ yrs) 00:00:00 [facility] Pneumococcal 13 2014-01-30 Completed Universit [...] y of Vaccine (3+ yrs) 00:00:00 [place] [facility] Pneumococcal 13 2014-01-30 Completed [facility] of Conjugate, PCV13 00:00:00 [place] [facility] (Prevnar 13) [facility] Influenza Virus 2014-01-30 Completed [facility] Vaccine (3+ yrs) 00:00:00 [place] [facility] Pneumococcal 13 2014-01-30 Completed [facility] of Conjugate, PCV13 00:00:00 [place] [facility] (Prevnar 13) [facility] Influenza Virus 2014-01-30 Completed [facility] Vaccine (3+ yrs) 00:00:00 [place] [facility] Pneumococcal 13 2014-01-30 Completed [facility] Conjugate, PCV13 00:00:00 [place] [facility] (Prevnar 13) [facility] Influenza Virus 2014-01-30 Completed [facility] Vaccine (3+ yrs) 00:00:00 [facility] Pneumococcal 13 2014-01-30 Completed [facility] Conjugate, PCV13 00:00:00 [place] [facility] (Prevnar 13) [facility] Influenza Virus 2014-01-30 Completed [facility] Vaccine (3+ yrs) 00:00:00 [place] [facility] Pneumococcal 13 2014-01-30 Completed [facility] of Conjugate, PCV13 00:00:00 [place] [facility] (Prevnar 13) [facility] Influenza Virus 2014-01-30 Completed [facility] Vaccine (3+ yrs) 00:00:00 [facility] Pneumococcal 13 2014-01-30 Completed [facility] of Conjugate, PCV13 00:00:00 [place] [facility] (Prevnar 13) [facility] Influenza Virus 2014-01-30 Completed [facility] Vaccine (3+ yrs) 00:00:00 [facility] Pneumococcal 13 2014-01-30 Completed [facility] of Conjugate, PCV13 00:00:00 [facility] (Prevnar 13) Branch Influenza Virus 2014-01-30 Completed [facility] Vaccine (3+ yrs) 00:00:00 [facility] Pneumococcal 13 2014-01-30 Completed [facility] of Conjugate, PCV13 00:00:00 [facility] (Prevnar 13) Branch Influenza Virus 2014-01-30 Completed [facility] Vaccine (3+ yrs) 00:00:00 [facility] Pneumococcal 13 2014-01-30 Completed [facility] of Conjugate, PCV13 00:00:00 [facility] (Prevnar 13) Branch Influenza Virus 2014-01-30 Completed [facility] Vaccine (3+ yrs) 00:00:00 [facility] Pneumococcal 13 2014-01-30 Completed [facility] of Conjugate, PCV13 00:00:00 [facility] (Prevnar 13) Branch Pneumococcal 2012-02-16 Completed [facility] o f Polysaccharide, 00:00:00 [place] [facility] PPSV23 (PNEUMOVAX) Branch Influenza Virus 2012-02-16 Completed [facility] Vaccine 00:00:00 [facility] PPD (TB) 2012-02-16 Completed [facility] of 00:00:00 [facility] Pneumococcal 2012-02-16 Completed [facility] o f Polysaccharide, 00:00:00 [place] [facility] PPSV23 (PNEUMOVAX) Branch Influenza Virus 2012-02-16 Completed [facility] Vaccine 00:00:00 [facility] PPD (TB) 2012-02-16 Completed [facility] of 00:00:00 [facility] Pneumococcal 2012-02-16 Completed [facility] o f Polysaccharide, 00:00:00 [place] [facility] PPSV23 (PNEUMOVAX) Branch Influenza Virus 2012-02-16 Completed [facility] Vaccine 00:00:00 [facility] PPD (TB) 2012-02-16 Completed [facility] of 00:00:00 [facility] Pneumococcal 2012-02-16 Completed [facility] o f Polysaccharide, 00:00:00 [place] [facility] PPSV23 (PNEUMOVAX) Branch Influenza Virus 2012-02-16 Completed [facility] Vaccine 00:00:00 [facility] PPD (TB) 2012-02-16 Completed [facility] of 00:00:00 [facility] Pneumococcal 2012-02-16 Completed [facility] o f Polysaccharide, 00:00:00 [place] [facility] PPSV23 (PNEUMOVAX) Branch Influenza Virus 2012-02-16 Completed [facility] Vaccine 00:00:00 [facility] PPD (TB) 2012-02-16 Completed [facility] of 00:00:00 [facility] Pneumococcal 2012-02-16 Completed [facility] o f Polysaccharide, 00:00:00 [place] [facility] PPSV23 (PNEUMOVAX) Branch Influenza Virus 2012-02-16 Completed [facility] Vaccine 00:00:00 [facility] PPD (TB) 2012-02-16 Completed [facility] of 00:00:00 [facility] Pneumococcal 2012-02-16 Completed [facility] o f Polysaccharide, 00:00:00 [place] [facility] PPSV23 (PNEUMOVAX) Branch Influenza Virus 2012-02-16 Completed [facility] Vaccine 00:00:00 [facility] PPD (TB) 2012-02-16 Completed [facility] of 00:00:00 [facility] Pneumococcal 2012-02-16 Completed [facility] o f Polysaccharide, 00:00:00 [place] [facility] PPSV23 (PNEUMOVAX) Branch Influenza Virus 2012-02-16 Completed [facility] Vaccine 00:00:00 [facility] PPD (TB) 2012-02-16 Completed [facility] of 00:00:00 [facility] Pneumococcal 2012-02-16 Completed [facility] o f Polysaccharide, 00:00:00 [place] [facility] PPSV23 (PNEUMOVAX) Branch Influenza Virus 2012-02-16 Completed [facility] Vaccine 00:00:00 [facility] PPD (TB) 2012-02-16 Completed [facility] of 00:00:00 [facility] Pneumococcal 2012-02-16 Completed [facility] o f Polysaccharide, 00:00:00 [place] [facility] PPSV23 (PNEUMOVAX) Branch Influenza Virus 2012-02-16 Completed [facility] Vaccine 00:00:00 [facility] PPD (TB) 2012-02-16 Completed [facility] of 00:00:00 [facility] Pneumococcal 2012-02-16 Completed [facility] o f Polysaccharide, 00:00:00 [place] [facility] PPSV23 (PNEUMOVAX) Branch Influenza Virus 2012-02-16 Completed [facility] Vaccine 00:00:00 [facility] PPD (TB) 2012-02-16 Completed [facility] of 00:00:00 [facility] Pneumococcal 2012-02-16 Completed [facility] o f Polysaccharide, 00:00:00 [place] [facility] PPSV23 (PNEUMOVAX) Branch Influenza Virus 2012-02-16 Completed [facility] Vaccine 00:00:00 [facility] PPD (TB) 2012-02-16 Completed [facility] of 00:00:00 [facility] Pneumococcal 2012-02-16 Completed [facility] o f Polysaccharide, 00:00:00 [place] [facility] PPSV23 (PNEUMOVAX) Branch Influenza Virus 2012-02-16 Completed [facility] Vaccine 00:00:00 [facility] PPD (TB) 2012-02-16 Completed [facility] of 00:00:00 [facility] Pneumococcal 2012-02-16 Completed [facility] o f Polysaccharide, 00:00:00 [place] [facility] PPSV23 (PNEUMOVAX) Branch Influenza Virus 2012-02-16 Completed [facility] Vaccine 00:00:00 [facility] PPD (TB) 2012-02-16 Completed [facility] of 00:00:00 [facility] Pneumococcal 2012-02-16 Completed [facility] o f Polysaccharide, 00:00:00 [place] [facility] PPSV23 (PNEUMOVAX) Branch Influenza Virus 2012-02-16 Completed [facility] Vaccine 00:00:00 [facility] PPD (TB) 2012-02-16 Completed [facility] of 00:00:00 [facility] Pneumococcal 2012-02-16 Completed [facility] o f Polysaccharide, 00:00:00 [place] [facility] PPSV23 (PNEUMOVAX) Branch Influenza Virus 2012-02-16 Completed [facility] Vaccine 00:00:00 [facility] PPD (TB) 2012-02-16 Completed [facility] of 00:00:00 [facility] Pneumococcal 2012-02-16 Completed [facility] o f Polysaccharide, 00:00:00 [place] [facility] PPSV23 (PNEUMOVAX) Branch Influenza Virus 2012-02-16 Completed [facility] of Vaccine 00:00:00 [facility] PPD (TB) 2012-02-16 Completed [facility] of 00:00:00 [facility] Pneumococcal 2012-02-16 Completed [facility] o f Polysaccharide, 00:00:00 [place] [facility] PPSV23 (PNEUMOVAX) Branch Influenza Virus 2012-02-16 Completed [facility] of Vaccine 00:00:00 [facility] PPD (TB) 2012-02-16 Completed [facility] of 00:00:00 [facility] Pneumococcal 2012-02-16 Completed [facility] o f Polysaccharide, 00:00:00 [place] [facility] PPSV23 (PNEUMOVAX) Branch Influenza Virus 2012-02-16 Completed [facility] of Vaccine 00:00:00 [facility] PPD (TB) 2012-02-16 Completed [facility] of 00:00:00 [facility] Pneumococcal 2012-02-16 Completed [facility] o f Polysaccharide, 00:00:00 [place] [facility] PPSV23 (PNEUMOVAX) Branch Influenza Virus 2012-02-16 Completed [facility] of Vaccine 00:00:00 [facility] PPD (TB) 2012-02-16 Completed [facility] of 00:00:00 [facility] Pneumococcal 2012-02-16 Completed [facility] o f Polysaccharide, 00:00:00 [place] [facility] PPSV23 (PNEUMOVAX) Branch Influenza Virus 2012-02-16 Completed [facility] Vaccine 00:00:00 [facility] PPD (TB) 2012-02-16 Completed [facility] of 00:00:00 [facility] Pneumococcal 2012-02-16 Completed [facility] o f Polysaccharide, 00:00:00 [place] [facility] PPSV23 (PNEUMOVAX) Branch Influenza Virus 2012-02-16 Completed [facility] of Vaccine 00:00:00 [facility] PPD (TB) 2012-02-16 Completed [facility] of 00:00:00 [facility] Pneumococcal 2012-02-16 Completed [facility] o f Polysaccharide, 00:00:00 [place] [facility] PPSV23 (PNEUMOVAX) Branch Influenza Virus 2012-02-16 Completed [facility] Vaccine 00:00:00 [facility] PPD (TB) 2012-02-16 Completed [facility] of 00:00:00 [facility] Pneumococcal 2012-02-16 Completed [facility] o f Polysaccharide, 00:00:00 [place] [facility] PPSV23 (PNEUMOVAX) Branch Influenza Virus 2012-02-16 Completed [facility] Vaccine 00:00:00 [facility] PPD (TB) 2012-02-16 Completed [facility] of 00:00:00 [facility] Hep B, Adol or Pedi 2011-09-01 Completed Unive rsity of Dosage 00:00:00 [facility] Hep B, Adol or Pedi 2011-09-01 Completed Unive rsity of Dosage 00:00:00 [facility] Hep B, Adol or Pedi [...] 2011-03-17 Completed Unive rsity of Dosage 00:00:00 [facility] Hep B, Adol or Pedi 2011-03-17 Completed Unive rsity of Dosage 00:00:00 [facility] Hep B, Adol or Pedi 2011-03-17 Completed Unive rsity of Dosage 00:00:00 [facility] Hep B, Adol or Pedi 2011-03-17 Completed Unive rsity of Dosage 00:00:00 [facility] Hep B, Adol or Pedi 2011-03-17 Completed Unive rsity of Dosage 00:00:00 [facility] Hep B, Adol or Pedi 2011-03-17 Completed Unive rsity of Dosage 00:00:00 [facility] Hep B, Adol or Pedi 2011-03-17 Completed Unive rsity of Dosage 00:00:00 [facility] Hep B, Adol or Pedi 2011-03-17 Completed Unive rsity of Dosage 00:00:00 [facility] Hep B, Adol or Pedi 2011-03-17 Completed Unive rsity of Dosage 00:00:00 [facility] Hep B, Adol or Pedi 2011-03-17 Completed Unive rsity of Dosage 00:00:00 [facility] Influenza Virus 2011-02-10 Completed [facility] of Vaccine 00:00:00 [facility] Hep B, Adol or Pedi 2011-02-10 Completed Unive rsity of Dosage 00:00:00 [facility] Influenza Virus 2011-02-10 Completed [facility] Vaccine 00:00:00 [facility] Hep B, Adol or Pedi 2011-02-10 Completed Unive rsity of Dosage 00:00:00 [facility] Influenza Virus 2011-02-10 Completed [facility] Vaccine 00:00:00 [facility] Hep B, Adol or Pedi 2011-02-10 Completed Unive rsity of Dosage 00:00:00 [facility] Influenza Virus 2011-02-10 Completed [facility] Vaccine 00:00:00 [facility] Hep B, Adol or Pedi 2011-02-10 Completed Unive rsity of Dosage 00:00:00 [facility] Influenza Virus 2011-02-10 Completed [facility] of Vaccine 00:00:00 [facility] Hep B, Adol or Pedi 2011-02-10 Completed Unive rsity of Dosage 00:00:00 [facility] Influenza Virus 2011-02-10 Completed [facility] of Vaccine 00:00:00 [facility] Hep B, Adol or Pedi 2011-02-10 Completed Unive rsity of Dosage 00:00:00 [facility] Influenza Virus 2011-02-10 Completed [facility] of Vaccine 00:00:00 [facility] Hep B, Adol or Pedi 2011-02-10 Completed Unive rsity of Dosage 00:00:00 [facility] Influenza Virus 2011-02-10 Completed [facility] of Vaccine 00:00:00 [facility] Hep B, Adol or Pedi 2011-02-10 Completed Unive rsity of Dosage 00:00:00 [facility] Influenza Virus 2011-02-10 Completed [facility] Vaccine 00:00:00 [facility] Hep B, Adol or Pedi 2011-02-10 Completed [facility]ive rsity of Dosage 00:00:00 [facility] Influenza Virus 2011-02-10 Completed [facility] Vaccine 00:00:00 [facility] Hep B, Adol or Pedi 2011-02-10 Completed [facility]ive rsity of Dosage 00:00:00 [facility] Influenza Virus 2011-02-10 Completed [facility] Vaccine 00:00:00 [facility] Hep B, Adol or Pedi 2011-02-10 Completed [facility]ive rsity of Dosage 00:00:00 [facility] Influenza Virus 2011-02-10 Completed [facility] Vaccine 00:00:00 [facility] Hep B, Adol or Pedi 2011-02-10 Completed [facility]ive rsity of Dosage 00:00:00 [facility] Influenza Virus 2011-02-10 Completed [facility] Vaccine 00:00:00 [facility] Hep B, Adol or Pedi 2011-02-10 Completed [facility]ive rsity of Dosage 00:00:00 [facility] Influenza Virus 2011-02-10 Completed [facility] Vaccine 00:00:00 [facility] Hep B, Adol or Pedi 2011-02-10 Completed [facility]ive rsity of Dosage 00:00:00 [facility] Influenza Virus 2011-02-10 Completed [facility] Vaccine 00:00:00 [facility] Hep B, Adol or Pedi 2011-02-10 Completed [facility]ive rsity of Dosage 00:00:00 [facility] Influenza Virus 2011-02-10 Completed [facility] of Vaccine 00:00:00 [facility] Hep B, Adol or Pedi 2011-02-10 Completed [facility]ive rsity of Dosage 00:00:00 [facility] Influenza Virus 2011-02-10 Completed [facility] of Vaccine 00:00:00 [facility] Hep B, Adol or Pedi 2011-02-10 Completed Unive rsity of Dosage 00:00:00 [facility] Influenza Virus 2011-02-10 Completed [facility] of Vaccine 00:00:00 [facility] Hep B, Adol or Pedi 2011-02-10 Completed [facility]ive rsity of Dosage 00:00:00 [facility] Influenza Virus 2011-02-10 Completed [facility] Vaccine 00:00:00 [facility] Hep B, Adol or Pedi 2011-02-10 Completed [facility]ive rsity of Dosage 00:00:00 [facility] Influenza Virus 2011-02-10 Completed [facility] Vaccine 00:00:00 [facility] Hep B, Adol or Pedi 2011-02-10 Completed [facility]ive rsity of Dosage 00:00:00 [facility] Influenza Virus 2011-02-10 Completed [facility] Vaccine 00:00:00 [facility] Hep B, Adol or Pedi 2011-02-10 Completed [facility]ive rsity of Dosage 00:00:00 [facility] Influenza Virus 2011-02-10 Completed [facility] of Vaccine 00:00:00 [facility] Hep B, Adol or Pedi 2011-02-10 Completed [facility]ive rsity of Dosage 00:00:00 [facility] Influenza Virus 2011-02-10 Completed [facility] of Vaccine 00:00:00 [facility] Hep B, Adol or Pedi 2011-02-10 Completed [facility]ive rsity of Dosage 00:00:00 [facility] Influenza Virus 2011-02-10 Completed [facility] Vaccine 00:00:00 [facility] Hep B, Adol or Pedi 2011-02-10 Completed [facility]ive rsity of Dosage 00:00:00 [facility] PPD (TB) 2010-11-18 Completed [facility] of 00:00:00 [facility] TDAP (ADACEL) 2010-11-18 Completed [facility] of VACCINE 00:00:00 [facility] PPD (TB) 2010-11-18 Completed [facility] of 00:00:00 [facility] TDAP (ADACEL) 2010-11-18 Completed [facility] of VACCINE 00:00:00 [facility] PPD (TB) 2010-11-18 Completed [facility] of 00:00:00 [facility] TDAP (ADACEL) 2010-11-18 Completed [facility] of VACCINE 00:00:00 [facility] PPD (TB) 2010-11-18 Completed [facility] of 00:00:00 [facility] TDAP (ADACEL) 2010-11-18 Completed [facility] of VACCINE 00:00:00 [facility] PPD (TB) 2010-11-18 Completed [facility] of 00:00:00 [facility] TDAP (ADACEL) 2010-11-18 Completed [facility] of VACCINE 00:00:00 [facility] PPD (TB) 2010-11-18 Completed [facility] of 00:00:00 [facility] TDAP (ADACEL) 2010-11-18 Completed [facility] of VACCINE 00:00:00 [facility] PPD (TB) 2010-11-18 Completed [facility] of 00:00:00 [facility] TDAP (ADACEL) 2010-11-18 Completed [facility] of VACCINE 00:00:00 [facility] PPD (TB) 2010-11-18 Completed [facility] of 00:00:00 [facility] TDAP (ADACEL) 2010-11-18 Completed [facility] of VACCINE 00:00:00 [facility] PPD (TB) 2010-11-18 Completed [facility] of 00:00:00 [facility] TDAP (ADACEL) 2010-11-18 Completed [facility] of VACCINE 00:00:00 [facility] PPD (TB) 2010-11-18 Completed [facility] of 00:00:00 [facility] TDAP (ADACEL) 2010-11-18 Completed [facility] of VACCINE 00:00:00 [facility] PPD (TB) 2010-11-18 Completed [facility] of 00:00:00 [facility] TDAP (ADACEL) 2010-11-18 Completed [facility] of VACCINE 00:00:00 [facility] PPD (TB) 2010-11-18 Completed [facility] of 00:00:00 [facility] TDAP (ADACEL) 2010-11-18 Completed [facility] of VACCINE 00:00:00 [facility] PPD (TB) 2010-11-18 Completed [facility] of 00:00:00 [facility] TDAP (ADACEL) 2010-11-18 Completed [facility] of VACCINE 00:00:00 [facility] PPD (TB) 2010-11-18 Completed [facility] of 00:00:00 [facility] TDAP (ADACEL) 2010-11-18 Completed [facility] of VACCINE 00:00:00 [facility] PPD (TB) 2010-11-18 Completed [facility] of 00:00:00 [facility] TDAP (ADACEL) 2010-11-18 Completed [facility] of VACCINE 00:00:00 [facility] PPD (TB) 2010-11-18 Completed [facility] of 00:00:00 [facility] TDAP (ADACEL) 2010-11-18 Completed [facility] of VACCINE 00:00:00 [facility] PPD (TB) 2010-11-18 Completed [facility] of 00:00:00 [facility] TDAP (ADACEL) 2010-11-18 Completed [facility] of VACCINE 00:00:00 [facility] PPD (TB) 2010-11-18 Completed [facility] of 00:00:00 [facility] TDAP (ADACEL) 2010-11-18 Completed [facility] of VACCINE 00:00:00 [facility] PPD (TB) 2010-11-18 Completed [facility] of 00:00:00 [facility] TDAP (ADACEL) 2010-11-18 Completed [facility] VACCINE 00:00:00 [facility] [facility] PPD (TB) 2010-11-18 Completed [facility] 00:00:00 [facility] TDAP (ADACEL) 2010-11-18 Completed University of VACCINE 00:00:00 [facility] PPD (TB) 2010-11-18 Completed [facility] 00:00:00 [facility] TDAP (ADACEL) 2010-11-18 Completed [facility] of VACCINE 00:00:00 [facility] PPD (TB) 2010-11-18 Completed [facility] 00:00:00 [facility] TDAP (ADACEL) 2010-11-18 Completed [facility] of VACCINE 00:00:00 [facility] PPD (TB) 2010-11-18 Completed [facility] 00:00:00 [facility] TDAP (ADACEL) 2010-11-18 Completed [facility] of VACCINE 00:00:00 [facility] PPD (TB) 2010-11-18 Completed [facility] of 00:00:00 [facility] TDAP (ADACEL) 2010-11-18 Completed [facility] of VACCINE 00:00:00 [facility] HEPATITIS A 2004-03-02 Completed [facility] 00:00:00 [facility] HEPATITIS A 2004-03-02 Completed [facility] 00:00:00 [facility] HEPATITIS A 2004-03-02 Completed [facility] 00:00:00 [facility] HEPATITIS A 2004-03-02 Completed [facility] 00:00:00 [facility] HEPATITIS A 2004-03-02 Completed [facility] 00:00:00 [facility] HEPATITIS A 2004-03-02 Completed [facility] 00:00:00 [facility] HEPATITIS A 2004-03-02 Completed [facility] 00:00:00 [facility] HEPATITIS A 2004-03-02 Completed [facility] 00:00:00 [facility] HEPATITIS A 2004-03-02 Completed [facility] 00:00:00 [facility] HEPATITIS A 2004-03-02 Completed [facility] 00:00:00 [facility] HEPATITIS A 2004-03-02 Completed [facility] 00:00:00 [facility] HEPATITIS A 2004-03-02 Completed [facility] 00:00:00 [facility] HEPATITIS A 2004-03-02 Completed [facility] 00:00:00 [facility] HEPATITIS A 2004-03-02 Completed [facility] 00:00:00 [facility] HEPATITIS A 2004-03-02 Completed [facility] 00:00:00 [facility] HEPATITIS A 2004-03-02 Completed [facility] 00:00:00 [facility] HEPATITIS A 2004-03-02 Completed [facility] 00:00:00 [facility] HEPATITIS A 2004-03-02 Completed [facility] 00:00:00 [facility] HEPATITIS A 2004-03-02 Completed [facility] 00:00:00 [facility] HEPATITIS A 2004-03-02 Completed [facility] 00:00:00 [facility] HEPATITIS A 2004-03-02 Completed [facility] 00:00:00 [facility] HEPATITIS A 2004-03-02 Completed [facility] 00:00:00 [facility] HEPATITIS A 2004-03-02 Completed [facility] 00:00:00 [facility] HEPATITIS A 2004-03-02 Completed [facility] 00:00:00 [facility] HEPATITIS A 2003-08-01 Completed [facility] 00:00:00 [facility] HEPATITIS A 2003-08-01 Completed [facility] 00:00:00 [facility] HEPATITIS A 2003-08-01 Completed [facility] 00:00:00 [facility] HEPATITIS A 2003-08-01 Completed [facility] 00:00:00 [facility] HEPATITIS A 2003-08-01 Completed [facility] 00:00:00 [facility] HEPATITIS A 2003-08-01 Completed [facility] 00:00:00 [facility] HEPATITIS A 2003-08-01 Completed [facility] 00:00:00 [facility] HEPATITIS A 2003-08-01 Completed [facility] 00:00:00 [facility] HEPATITIS A 2003-08-01 Completed [facility] 00:00:00 [facility] HEPATITIS A 2003-08-01 Completed [facility] 00:00:00 [facility] HEPATITIS A 2003-08-01 Completed [facility] 00:00:00 [facility] HEPATITIS A 2003-08-01 Completed [facility] 00:00:00 [facility] HEPATITIS A 2003-08-01 Completed [facility] of 00:00:00 [facility] HEPATITIS A 2003-08-01 Completed [facility] of 00:00:00 [facility] HEPATITIS A 2003-08-01 Completed [facility] 00:00:00 [facility] HEPATITIS A 2003-08-01 Completed [facility] 00:00:00 [facility] HEPATITIS A 2003-08-01 Completed [facility] 00:00:00 [facility] HEPATITIS A 2003-08-01 Completed [facility] 00:00:00 [facility] HEPATITIS A 2003-08-01 Completed [facility] 00:00:00 [facility] HEPATITIS A 2003-08-01 Completed [facility] of 00:00:00 [facility] HEPATITIS A 2003-08-01 Completed [facility] of 00:00:00 [facility] HEPATITIS A 2003-08-01 Completed [facility] 00:00:00 [facility] HEPATITIS A 2003-08-01 Completed [facility] of 00:00:00 [facility] HEPATITIS A 2003-08-01 Completed [facility] of 00:00:00 [facility] Pneumococcal 2001-10-04 Completed University o f Polysaccharide, 00:00:00 [place] [facility] PPSV23 (PNEUMOVAX) Branch PPD (TB) 2001-10-04 Completed [facility] 00:00:00 [facility] Pneumococcal 2001-10-04 Completed University o f Polysaccharide, 00:00:00 [place] [facility] PPSV23 (PNEUMOVAX) Branch PPD (TB) 2001-10-04 Completed [facility] 00:00:00 [facility] Pneumococcal 2001-10-04 Completed University o f Polysaccharide, 00:00:00 [place] [facility] PPSV23 (PNEUMOVAX) Branch PPD (TB) 2001-10-04 Completed [facility] of 00:00:00 [facility] Pneumococcal 2001-10-04 Completed [facility] o f Polysaccharide, 00:00:00 [place] [facility] PPSV23 (PNEUMOVAX) Branch PPD (TB) 2001-10-04 Completed [facility] of 00:00:00 [facility] Pneumococcal 2001-10-04 Completed University o f Polysaccharide, 00:00:00 [place] [facility] PPSV23 (PNEUMOVAX) Branch PPD (TB) 2001-10-04 Completed [facility] 00:00:00 [facility] Pneumococcal 2001-10-04 Completed University o f Polysaccharide, 00:00:00 [place] [facility] PPSV23 (PNEUMOVAX) Branch PPD (TB) 2001-10-04 Completed [facility] 00:00:00 [facility] Pneumococcal 2001-10-04 Completed University o f Polysaccharide, 00:00:00 [place] [facility] PPSV23 (PNEUMOVAX) Branch PPD (TB) 2001-10-04 Completed [facility] of 00:00:00 [facility] Pneumococcal 2001-10-04 Completed University o f Polysaccharide, 00:00:00 [place] [facility] PPSV23 (PNEUMOVAX) Branch PPD (TB) 2001-10-04 Completed [facility] of 00:00:00 [facility] Pneumococcal 2001-10-04 Completed University o f Polysaccharide, 00:00:00 [place] [facility] PPSV23 (PNEUMOVAX) Branch PPD (TB) 2001-10-04 Completed [facility] of 00:00:00 [facility] Pneumococcal 2001-10-04 Completed University o f Polysaccharide, 00:00:00 [place] [facility] PPSV23 (PNEUMOVAX) Branch PPD (TB) 2001-10-04 Completed [facility] of 00:00:00 [facility] Pneumococcal 2001-10-04 Completed University o f Polysaccharide, 00:00:00 [place] [facility] PPSV23 (PNEUMOVAX) Branch PPD (TB) 2001-10-04 Completed [facility] of 00:00:00 [facility] Pneumococcal 2001-10-04 Completed University o f Polysaccharide, 00:00:00 [place] [facility] PPSV23 (PNEUMOVAX) Branch PPD (TB) 2001-10-04 Completed [facility] of 00:00:00 [facility] Pneumococcal 2001-10-04 Completed University o f Polysaccharide, 00:00:00 [place] [facility] PPSV23 (PNEUMOVAX) Branch PPD (TB) 2001-10-04 Completed [facility] of 00:00:00 [facility] Pneumococcal 2001-10-04 Completed University o f Polysaccharide, 00:00:00 [place] [facility] PPSV23 (PNEUMOVAX) Branch PPD (TB) 2001-10-04 Completed [facility] of 00:00:00 [facility] Pneumococcal 2001-10-04 Completed University o f Polysaccharide, 00:00:00 [place] [facility] PPSV23 (PNEUMOVAX) Branch PPD (TB) 2001-10-04 Completed [facility] of 00:00:00 [facility] Pneumococcal 2001-10-04 Completed University o f Polysaccharide, 00:00:00 [place] [facility] PPSV23 (PNEUMOVAX) Branch PPD (TB) 2001-10-04 Completed [facility] of 00:00:00 [facility] Pneumococcal 2001-10-04 Completed University o f Polysaccharide, 00:00:00 [place] [facility] PPSV23 (PNEUMOVAX) Branch PPD (TB) 2001-10-04 Completed [facility] of 00:00:00 [facility] Pneumococcal 2001-10-04 Completed University o f Polysaccharide, 00:00:00 [place] [facility] PPSV23 (PNEUMOVAX) Branch PPD (TB) 2001-10-04 Completed [facility] of 00:00:00 [facility] Pneumococcal 2001-10-04 Completed University o f Polysaccharide, 00:00:00 [place] [facility] PPSV23 (PNEUMOVAX) Branch PPD (TB) 2001-10-04 Completed [facility] of 00:00:00 [facility] Pneumococcal 2001-10-04 Completed University o f Polysaccharide, 00:00:00 [place] [facility] PPSV23 (PNEUMOVAX) Branch PPD (TB) 2001-10-04 Completed [facility] 00:00:00 [facility] Pneumococcal 2001-10-04 Completed University o f Polysaccharide, 00:00:00 [place] [facility] PPSV23 (PNEUMOVAX) Branch PPD (TB) 2001-10-04 Completed [facility] of 00:00:00 [facility] Pneumococcal 2001-10-04 Completed University o f Polysaccharide, 00:00:00 [place] [facility] PPSV23 (PNEUMOVAX) Branch PPD (TB) 2001-10-04 Completed [facility] of 00:00:00 [facility] Pneumococcal 2001-10-04 Completed University o f Polysaccharide, 00:00:00 [place] [facility] PPSV23 (PNEUMOVAX) Branch PPD (TB) 2001-10-04 Completed [facility] of 00:00:00 [facility] Pneumococcal 2001-10-04 Completed University o f Polysaccharide, 00:00:00 [place] [facility] PPSV23 (PNEUMOVAX) Branch PPD (TB) 2001-10-04 Completed [facility] of 00:00:00 [facility] HEPATITIS A Unknown Completed [facility] HEPATITIS A Unknown Completed [facility] Pneumococcal Unknown Completed [facility] Polysaccharide, [place] [facility] PPSV23 (PNEUMOVAX) Branch PPD (TB) Unknown Completed [facility] PPD (TB) Unknown Completed [facility] TDAP (ADACEL) Unknown Completed [facility] Influenza Virus Unknown Completed Universit y of Vaccine [facility] Hep B, Adol or Pedi Unknown Completed Unive rsity of Dosage [facility] Hep B, Adol or Pedi Unknown Completed Unive rsity of Dosage [facility] Hep B, Adol or Pedi Unknown Completed Unive rsity of Dosage [facility] Pneumococcal Unknown Completed [facility] Polysaccharide, [facility] PPSV23 (PNEUMOVAX) Branch Influenza Virus Unknown Completed Universit y of Vaccine [facility] PPD (TB) Unknown Completed [facility] Influenza Virus Unknown Completed Universit y of Vaccine (3+ yrs) [facility] Branch Pneumococcal 13 Unknown Completed Universit y of Conjugate, PCV13 [facility] dical (Prevnar 13) Branch Influenza Virus Unknown Completed Universit y of Vaccine [facility] SARS-COV-2 COVID-19 Unknown Completed Unive rsity of PFIZER VACCINE [facility] SARS-COV-2 COVID-19 Unknown Completed Unive rsity of PFIZER VACCINE [facility] SARS-COV-2 COVID-19 Unknown Completed Unive rsity of D[facility]RIS-[facility]CR[facility] [place] [facility] VACCINE 12 YRS+, Branch BIVALENT 0.3ML, IM, (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) Influenza Virus Unknown Completed Universit y of Vaccine,quad [facility] Im,preserve Free Branch 65+ (FLUAD) HEPATITIS A Unknown Completed [facility] HEPATITIS A Unknown Completed [facility] Pneumococcal Unknown Completed University o f Polysaccharide, [place] [facility] PPSV23 (PNEUMOVAX) Branch PPD (TB) Unknown Completed [facility] PPD (TB) Unknown Completed [facility] TDAP (ADACEL) Unknown Completed [facility] Influenza Virus Unknown Completed Universit y of Vaccine [facility] Hep B, Adol or Pedi Unknown Completed Unive rsity of Dosage [facility] Hep B, Adol or Pedi Unknown Completed Unive rsity of Dosage [facility] Hep B, Adol or Pedi Unknown Completed Unive rsity of Dosage [facility] Pneumococcal Unknown Completed University o f Polysaccharide, [place] [facility] PPSV23 (PNEUMOVAX) Branch Influenza Virus Unknown Completed Universit y of Vaccine [facility] PPD (TB) Unknown Completed [facility] Influenza Virus Unknown Completed Universit y of Vaccine (3+ yrs) [facility] dical Branch Pneumococcal 13 Unknown Completed Universit y of Conjugate, PCV13 [facility] dical (Prevnar 13) Branch Influenza Virus Unknown Completed Universit y of Vaccine [facility] SARS-COV-2 COVID-19 Unknown Completed Unive rsity of PFIZER VACCINE [facility] Branch SARS-COV-2 COVID-19 Unknown Completed Unive rsity of PFIZER VACCINE [facility] Branch SARS-COV-2 COVID-19 Unknown Completed Unive rsity of [facility] [place] [facility] VACCINE 12 YRS+, Branch BIVALENT 0.3ML, IM, (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) Influenza Virus Unknown Completed [facility]it y of Vaccine,quad [facility] Im,preserve Free Branch 65+ (FLUAD) HEPATITIS A Unknown Completed [facility] HEPATITIS A Unknown Completed [facility] Pneumococcal Unknown Completed University o f Polysaccharide, [facility] ical PPSV23 (PNEUMOVAX) Branch PPD (TB) Unknown Completed [facility] PPD (TB) Unknown Completed [facility] TDAP (ADACEL) Unknown Completed [facility] Influenza Virus Unknown Completed Universit y of Vaccine [facility] Hep B, Adol or Pedi Unknown Completed Unive rsity of Dosage [facility] Hep B, Adol or Pedi Unknown Completed Unive rsity of Dosage [facility] Hep B, Adol or Pedi Unknown Completed Unive rsity of Dosage [facility] Pneumococcal Unknown Completed University o f Polysaccharide, [place] [facility] PPSV23 (PNEUMOVAX) Branch Influenza Virus Unknown Completed Universit y of Vaccine [facility] PPD (TB) Unknown Completed [facility] Influenza Virus Unknown Completed Universit y of Vaccine (3+ yrs) [facility] dical Branch Pneumococcal 13 Unknown Completed Universit y of Conjugate, PCV13 [facility] dical (Prevnar 13) Branch Influenza Virus Unknown Completed Universit y of Vaccine [facility] SARS-COV-2 COVID-19 Unknown Completed Unive rsity of PFIZER VACCINE [facility] SARS-COV-2 COVID-19 Unknown Completed Unive rsity of PFIZER VACCINE [facility] SARS-COV-2 COVID-19 Unknown Completed Unive rsity of [facility]ITRIS-SUCROSE [facility] VACCINE 12 YRS+, Branch BIVALENT 0.3ML, IM, (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) Influenza Virus Unknown Completed [facility] of Vaccine,quad [place] [facility] Im,preserve Free Branch 65+ (FLUAD) HEPATITIS A Unknown Completed [facility] HEPATITIS A Unknown Completed [facility] Pneumococcal Unknown Completed [facility] Polysaccharide, [place] [facility] PPSV23 (PNEUMOVAX) Branch PPD (TB) Unknown Completed [facility] PPD (TB) Unknown Completed [facility] TDAP (ADACEL) Unknown Completed [facility] Influenza Virus Unknown Completed Universit y of Vaccine [facility] Hep B, Adol or Pedi Unknown Completed Unive rsity of Dosage [facility] Hep B, Adol or Pedi Unknown Completed Unive rsity of Dosage [facility] Hep B, Adol or Pedi Unknown Completed Unive rsity of Dosage [facility] Pneumococcal Unknown Completed [facility] Polysaccharide, [place] [facility] PPSV23 (PNEUMOVAX) Branch Influenza Virus Unknown Completed Universit y of Vaccine [facility] PPD (TB) Unknown Completed [facility] Influenza Virus Unknown Completed Universit y of Vaccine (3+ yrs) [facility] dical Branch Pneumococcal 13 Unknown Completed Universit y of Conjugate, PCV13 [facility] dical (Prevnar 13) Branch Influenza Virus Unknown Completed Universit y of Vaccine [facility] SARS-COV-2 COVID-19 Unknown Completed Unive rsity of PFIZER VACCINE [facility] SARS-COV-2 COVID-19 Unknown Completed Unive rsity of PFIZER VACCINE [facility] SARS-COV-2 COVID-19 Unknown Completed Unive rsity of [facility] [place] [facility] VACCINE 12 YRS+, Branch BIVALENT 0.3ML, IM, (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) Influenza Virus Unknown Completed [facility] of Vaccine,quad [place] [facility] Im,preserve Free Branch 65+ (FLUAD) PFIZER COVID-19 Unknown Completed [facility] PFIZER COVID-19 Unknown Completed [facility] PFIZER COVID-19 Unknown Completed [facility] PFIZER COVID-19 Unknown Completed [facility] PFIZER COVID[facility]19 Unknown Completed [facility] PFIZER COVID-19 Unknown Completed [facility] PFIZER COVID-19 Unknown Completed [facility] PFIZER COVID-19 Unknown Completed [facility] PFIZER COVID-19 Unknown Completed [facility] PFIZER COVID-19 Unknown Completed [facility] PFIZER COVID-19 Unknown Completed [facility] PFIZER COVID[facility]19 Unknown Completed [facility] PFIZER COVID-19 Unknown Completed [facility] PFIZER COVID[facility]19 Unknown Completed [facility] PFIZER COVID-19 Unknown Completed [facility] PFIZER COVID[facility]19 Unknown Completed [facility] PFIZER COVID-19 Unknown Completed [facility] PFIZER COVID[facility]19 Unknown Completed [facility] PFIZER COVID-19 Unknown Completed [facility] PFIZER COVID-19 Unknown Completed [facility] PFIZER COVID-19 Unknown Completed [facility] PFIZER COVID-19 Unknown Com[facility] Vital Signs Vital Name Observation Time Observation Value Comments Source Systolic blood 2023-03-17 21:51:00 171 mm[Hg] Univer sity of pressure [facility] Diastolic blood 2023-03-17 21:51:00 86 mm[Hg] Unive rsity of [facility] Heart rate 2023-03-17 21:51:00 55 /min [facility] Body temperature 2023-03-17 21:51:00 36.17 [facility] Respiratory rate 2023-03-17 21:51:00 18 /min [facility] Oxygen saturation in 2023-03-17 21:51:00 90 /min [facility] Arterial blood by [facility] Pulse oximetry Branch Body height 2023-03-17 04:16:00 162.6 cm [facility] Body weight 2023-03-17 04:16:00 77.4 kg [facility] BMI 2023-03-17 04:16:00 29.29 kg/m2 [facility] Systolic blood 2023-01-27 23:00:00 179 mm[Hg] Univer sity of pressure [facility] Diastolic blood 2023-01-27 23:00:00 101 mm[Hg] Unive rsity of pressure [facility] Heart rate 2023-01-27 23:00:00 58 /min [facility] Respiratory rate 2023-01-27 23:00:00 12 /min Univ ersity of [facility] Oxygen saturation in 2023-01-27 23:00:00 99 /min University of Arterial blood by [email or web address] [facility] Pulse oximetry Branch Body temperature 2023-01-27 [...] 98 /min [facility] of Arterial blood by [email or web address] [facility] Pulse oximetry Branch Body weight 2022-05-10 [...] 100 /min University of Arterial blood by [email or web address] [facility] Pulse oximetry Branch Body temperature 2022-05-08 22:22:00 35.89 Amina Univ ersity [facility] Respiratory rate 2022-05-08 22:22:00 14 /min Univ ersity of [facility] Body weight 2022-05-08 22:22:00 78.926 [...] 99 /min University of Arterial blood by [facility] Pulse oximetry Branch Body [...] 96 /min University of Arterial blood by [facility] Pulse oximetry Branch Systolic [...] 2022-03-05 15:18:00 18 /min Univ ersity of [facility] Body height 2022-03-05 15:18:00 162.6 [...] 98 /min University of Arterial blood by [facility] Pulse oximetry Branch Body height 2022-02-11 16:02:00 162.6 cm [facility] Body weight 2022-02-11 16:02:00 79.379 kg [facility] BMI 2022-02-11 16:02:00 30.04 kg/m2 [facility] Systolic blood 2021-11-20 13:47:00 165 mm[Hg] Univer sity of pressure [facility] Diastolic blood 2021-11-20 13:47:00 83 mm[Hg] Unive rsity of pressure [facility] Heart rate 2021-11-20 13:47:00 58 /min [facility] [place] Body temperature 2021-11-20 13:42:00 36.39 Amina Univ ersity of [facility] Respiratory rate 2021-11-20 13:42:00 16 /min Univ ers[facility] [place] Body height 2021-11-20 13:42:00 162.6 cm [facility] [place] Body weight 2021-11-20 13:42:00 84.369 kg [facility] [place] BMI 2021-11-20 13:42:00 31.93 kg/m2 Universi ty of [facility] Systolic blood 2021-07-14 [...] 22:00:00 159 mm[Hg] Univer sity of pressure [facility] Diastolic blood 2022-05-10 22:00:00 87 mm[Hg] Unive rsity of [facility] Heart rate 2022-05-10 22:00:00 56 /min [facility] [place] Body temperature 2022-05-10 22:00:00 36.61 Amina Univ ersity of [facility] Respiratory rate 2022-05-10 22:00:00 17 /[facility] Oxygen saturation in 2022-05-10 22:00:00 98 /min [facility] Arterial blood by [facility] Pulse oximetry Branch Body weight 2022-05-10 16:29:00 78.926 kg [facility] [place] BMI 2022-05-10 16:29:00 29.87 kg/m2 Universi ty of [facility] Body height 2022-05-06 20:12:00 162.6 cm Universi ty of [facility] Systolic blood 2022-03-05 15:23:00 167 mm[Hg] Univer sity of pressure [facility] Diastolic blood 2022-03-05 15:23:00 105 mm[Hg] Unive rsity of pressure [facility] Heart rate 2022-03-05 15:23:00 49 /min Universi [facility] Body temperature 2022-03-05 15:18:00 36.67 Amina Univ ersity [facility] Respiratory rate 2022-03-05 15:18:00 18 /[facility] 2022-03-05 15:18:00 162[facility]6 [facility] Body weight 2022-03-05 15:18:00 74.707 kg [facility] BMI 2022-03-05 15:18:00 28.27 kg/m2 [facility] Oxygen saturation in 2022-02-16 21:41:00 98 /min University Arterial blood by [facility] Pulse oximetry [place] Systolic blood 2020-12-08 15:48:00 125 mm[Hg] [facility] pressure Diastolic blood 2020-12-08 15:48:00 76 mm[Hg] [facility] pressure Heart rate 2020-12-08 15:48:00 64 /min [facility] Body temperature 2020-12-08 15:48:00 36.61 Amina [facility] Respiratory rate 2020-12-08 15:48:00 17 /min [facility] [facility] height 2020-12-08 15:48:00 162.6 cm [facility] Body weight 2020-12-08 15:48:00 98.884 kg [facility] BMI 2020-12-08 15:48:00 37.42 kg/m2 [facility] Oxygen saturation in 2020-12-08 15:48:00 97 /min [facility] Arterial blood by Pulse oximetry Respitory Rate 2020-08-30 13:00:00 Memraymond al [place] Systolic (mm Hg) 2020-08-30 13:00:00 Caesar rial [place] Diastolic (mm Hg) 2020-08-30 13:00:00 Mem orial [place] Systolic (mm Hg) 2020-08-30 11:00:00 Caesar rial [place] Diastolic (mm Hg) 2020-08-30 11:00:00 Mem orial [place] Temperature Oral (F) 2020-08-30 11:00:00 98.4 F [facility] Respitory Rate 2020-08-30 11:00:00 Memori al [place] Respitory Rate 2020-08-30 10:00:00 Memori al [place] Systolic (mm Hg) 2020-08-30 10:00:00 Caesar rial [place] Diastolic (mm Hg) 2020-08-30 10:00:00 Mem orial [place] Temperature Oral (F) 2020-08-30 00:00:00 96.9 F [facility] [place] Temperature Oral (F) 2020-08-29 11:26:00 97.6 F [facility] Height 2020-08-29 10:30:00 162.56 cm [facility] Weight 2020-08-29 10:30:00 [facility] BMI Calculated 2020-08-29 10:30:00 Darien Fernandezann Procedures Procedure Date / Time Performing Clinician Source Performed EKG-12 LEAD 2023-03-17 16:14:23 Anatoly Wells [facility] TRANSTHORACIC ECHO (TTE) 2023-03-17 15:10:44 Radha Al [facility] COMPLETE W/ CONTRAST Medical [facility] URINE DRUG (IMMUNOASSAY) - 2023-03-17 08:25:00 Radha Al [facility] COMPREHENSIVE DRUG SCREEN Medica l Branch URINALYSIS 2023-03-17 08:25:00 Servando [facility] MAGNESIUM 2023-03-17 08:23:00 [facility] FREE T4 2023-03-17 08:23:00 Serv[facility] BASIC METABOLIC PANEL (NA, 2023-03-17 08:23:00 Radha Al [facility] K, CL, CO2, GLUCOSE, BUN, Medica l Branch CREATININE, CA) IRON PANEL 2023-03-17 08:23:00 [facility] CBC WITH DIFF 2023-03-17 08:23:00 [facility] FREE T3 2023-03-17 08:23:00 Servando [facility] TROPONIN I 2023-03-17 04:47:00 [facility] C-REACTIVE PROTEIN 2023-03-17 02:27:00 Servando [facility] TROPONIN I 2023-03-17 02:27:00 [facility] 2023-03-17 02:27:00 Servando [facility] HORMONE [facility] LIPID PANEL ([id number])(TOTAL 2023-03-17 02:27:00 Radha Al [facility] CHOLESTEROL, [facility] TRIGLYCERIDES, HDL) SERUM DRUG (IMMUNOASSAY) - 2023-03-17 02:27:00 Radha Al [facility] COMPREHENSIVE DRUG SCREEN Medica l Branch XR CHEST 2 VW 2023-03-16 23:25:00 Anatoly Wells [facility] TROPONIN I 2023-03-16 20:48:00 Anatoly Wells [facility] COMP. METABOLIC PANEL 2023-03-16 20:48:00 Anatoly Wells [facility] ([id number]) [facility] SEDIMENTATION RATE 2023-03-16 20:48:00 Servando [facility] CBC WITH DIFF 2023-03-16 20:48:00 Anatoly Wells [facility] GLYCOSYLATED HEMOGLOBIN 2023-03-16 20:48:00 Servando [facility] (A1C) [facility] D-DIMER 2023-03-16 20:48:00 Go Russell [facility] N-TERMINAL PRO-BNP 2023-03-16 20:48:00 Anatoly [facility] US LOWER EXTREMITY VEIN 2023-03-16 19:53:22 Go Russell [facility] WITH COMPRESSION LEFT Medical Br anch (ONLY FOR RULE OUT DVT) CONSENT/REFUSAL FOR 2023-03-16 16:49:29 Doctor Jojosseunice [facility] DIAGNOSIS AND TREATMENT [place] [facility] [place] CONSENT/REFUSAL FOR 2023-03-16 14:08:10 Doctor Jojosseunice [facility] DIAGNOSIS AND TREATMENT [place] [facility] PROTHROMBIN TIME / INR 2023-01-27 21:09[facility]00 [facility] 2023-01-27 21:09:00 [facility]EL[facility] W 2023-01-27 20:54:00 Bill Coles [facility] CONTRAST [facility] Branch LIPASE 2023-01-27 18:58:00 Bill Coles [facility] MAGNESIUM 2023-01-27 18:58:00 Bill Coles [facility] TROPONIN I 2023-01-27 18:58:00 Bill Coles [facility] COMP. METABOLIC PANEL 2023-01-27 18:58:00 Bill Coles [facility] ([id number]) [facility] CBC WITH DIFF 2023-01-27 18:58:00 Bill Coles Kiersten [facility] URINALYSIS 2023-01-27 18:58:00 Bill Coles Kiersten [facility] COVID-19 (ID NOW RAPID 2023-01-27 16:32:00 Bill Coles [facility] TESTING) [facility] URINALYSIS 2022-05-10 19:36:00 Home Matthews [facility] TROPONIN I 2022-05-10 18:34:00 Home Matthews [facility] COMP. METABOLIC PANEL 2022-05-10 18:34:00 [facility] ([id number]) [facility] CBC WITH DIFF 2022-05-10 18:34:00 Home Matthews [facility] XR CHEST 2 VW 2022-05-10 17:24:58 Home Matthews [facility] CONSENT/REFUSAL FOR 2022-05-10 16:26:23 Doctor Unasseunice, [facility] DIAGNOSIS AND TREATMENT [place] [facility] CONSENT/REFUSAL FOR 2022-05-10 16:26:09 Doctor Daron [facility] DIAGNOSIS AND TREATMENT [place] [facility] URINALYSIS 2022-05-08 22:43:00 Theresa Hickman [facility] XR CHEST 2 VW 2022-05-06 22:56:53 Anette Olea [facility] COMP. METABOLIC PANEL 2022-05-06 22:14:00 Anette Olea [facility] ([id number]) Medical Branch CBC WITH DIFF 2022-05-06 22:14:00 Emmie [facility] COVID-19 (ID NOW RAPID 2022-05-06 22:14:00 Anette Olea [facility] TESTING) Medical Branch BASIC METABOLIC PANEL (NA, 2022-04-22 21:23:00 Paulette Gray [facility] K, CL, CO2, GLUCOSE, BUN, Medica l [place] CREATININE, CA) CBC WITH DIFF 2022-04-22 21:23:00 Paulette Gray [facility] CONSENT/REFUSAL FOR 2022-04-22 19:45:46 Doctor Daron, [facility] DIAGNOSIS AND TREATMENT [place] [facility] SARS-COV-2 COVID-19 2022-03-05 16:09:27 [facility] DIMITRIS-SUCROSE VACCINE [address] [place] [address] YRS+, BIVALENT 0.3ML, IM, (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) FLU 2022-03-05 16:09:27 [facility] VACC(),65+YR,0.5 Medica l Branch ML,IM,ADJUVANTED,QUAD(FLUA D) FLU 2022-03-05 16:09:27 [facility] VACC(),65+YR,0.5 Medica l Branch ML,IM,ADJUVANTED,QUAD(FLUA D) SARS-COV-2 COVID-19 2022-03-05 16:09:27 [facility] DIMITRIS-SUCROSE VACCINE [address] [place] [address] YRS+, BIVALENT 0.3ML, IM, (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) MAGNESIUM 2022-02-15 09:41:00 Sofia Garcia [facility] BASIC METABOLIC PANEL (NA, 2022-02-15 09:41:00 Radha Sofia [facility] K, CL, CO2, GLUCOSE, BUN, Medica l Branch CREATININE, CA) CBC WITH DIFF 2022-02-15 09:41:00 Sofia Garcia [facility] N-TERMINAL PRO-BNP 2022-02-15 09:41:00 Sofia Garcia [facility] CBC WITH DIFF 2022-02-15 09:41:00 Radha [facility] BASIC METABOLIC PANEL (NA, 2022-02-15 09:41:00 Radha Sofia [facility] K, CL, CO2, GLUCOSE, BUN, Medica l Branch CREATININE, CA) MAGNESIUM 2022-02-15 09:41:00 Radha [facility] N-TERMINAL PRO-BNP 2022-02-15 09:41:00 Sofia Garcia [facility] BASIC METABOLIC PANEL [...] [facility] N-TERMINAL PRO-BNP 2022-02-11 23:41:00 Radha Sofia [facility] TROPONIN I 2022-02-11 23:41:00 Radha [facility] N-TERMINAL PRO-BNP 2022-02-11 23:41:00 Sofia Garcia [facility] HB ECG ROUTINE & RHYTHM 2022-02-11 22:15:36 Sofia Garcia [facility] vers[facility] TRANSTHORACIC ECHO (TTE) 2022-02-11 21:26:50 [facility] 2022-02-11 21:26:50 [facility] 2022-02-11 07:45:43 Reilly Means [facility] CONTRAST [facility] CT ABDOMEN PELVIS W 2022-02-11 07:45:43 Reilly Means [facility] RAPID INFLUENZA A/B 2022-02-11 06:54:00 Reilly Means [facility] RAPID INFLUENZA A/B 2022-02-11 06:54:00 Reilly Means [facility] URINALYSIS 2022-02-11 06:45:00 Reilly Means [facility] URINE CULTURE 2022-02-11 06:45:00 Reilly Means [facility] URINALYSIS 2022-02-11 06:45:00 Reilly Means [facility] URINE CULTURE 2022-02-11 06:45:00 Reilly Means [facility] HB ECG ROUTINE & RHYTHM 2022-02-11 05:22:08 Reilly Means [facility] ECG ROUTINE & RHYTHM 2022-02-11 05:22:08 Reilly Means [facility] BLOOD CULTURE SCREEN 2022-02-11 04:58:00 Reilly Means [facility] TROPONIN I 2022-02-11 04:58:00 Reilly Means [facility] COMP. METABOLIC PANEL 2022-02-11 04:58:00 Reilly Means [facility] ([id number]) [facility] CBC WITH DIFF 2022-02-11 04:58:00 eRilly Means [facility] PROTHROMBIN TIME / [...] 2022-02-11 04:58:00 Reilly Means [facility] CBC WITH DIFF 2022-02-11 04:58:00 Reilly Means [facility] ACTIVATED PARTIAL THRMPLAS 2022-02-11 04:58:00 Reilly Means [facility] PROTHROMBIN TIME / INR 2022-02-11 04:58:00 Reilly Means [facility] COVID-19 (ID NOW RAPID 2022-02-11 04:58:00 Reilly Means [facility] TESTING) Medical Branch COMP. METABOLIC PANEL 2022-02-11 04:58:00 Reilly Means [facility] ([id number]) Medical Branch TROPONIN I 2022-02-11 04:58:00 Reilly Means [facility] N-TERMINAL PRO-BNP 2022-02-11 04:58:00 Reilly Means [facility] BLOOD CULTURE SCREEN 2022-02-11 04:58:00 Reilly Means [facility] LACTIC ACID WHOLE BLOOD 2022-02-11 04:58:00 Reilly Means [facility] LAB ONLY COVID 2022-02-11 04:58:00 Reilly Means [facility] XR CHEST 1 VW 2022-02-11 04:27:42 Reilly Means [facility] XR CHEST 1 VW 2022-02-11 04:27:42 Reilly Means [facility] HOSPITAL ADMISSION 2022-02-10 05:01:00 Doctor Unassigned, [facility] [place] HOSPITAL ADMISSION 2022-02-10 05:01:00 Doctor Unassigned, [facility] Name [facility] [place] ECG 12-LEAD 2021-07-14 15:14:00 SadElan centeno [facility] [id number] 2021-06-17 00:00:[address] [facility] GASTROINTESTINAL PANEL 2020-12-08 22:21:00 Eliseo Arce [facility] XR ABDOMEN 1 VW 2020-12-08 18:06:32 Eliseo Arce spital OR [place] < 1 HOUR 2020-09-05 22:39:00 Eliseo Arce Ho spital SURGICAL PATHOLOGY REQUEST 2020-09-05 21:54:00 [facility] XR CHEST 1 VW PORTABLE 2020-09-05 19:55:00 [facility] DISCHARGE PATIENT 2020-09-05 17:27:55 Lucas Harris [facility] [place] AN ELECTIVE 2020-09-05 16:47:23 [facility], INTRAOPERATIVE 2020-09-05 16:27:00 [facility] 2020-09-05 15:04:00 Sarai Maharaj [facility] TIME (PTT) M. PROTHROMBIN TIME WITH INR 2020-09-05 15:04:00 Mindy Maharaj [facility] M. Plan of Care Planned Activity Planned Date Details Comments Source Future Scheduled 2023-03-17 Screening for [facility] Test 01:30:37 malignant neoplasm of colon (procedure) [code = 056713829] Future Scheduled 2023-03-17 Screening for [facility] Test 01:30:37 malignant neoplasm of colon (procedure) [code = 198229158] Future Scheduled 2023-03-17 Screening for [facility] Test 01:30:37 malignant neoplasm of colon (procedure) [code = 903669498] Future Scheduled 2023-03-17 SHINGLES VACCINES (1 Met [facility] Test 01:30:37 of 2) [code = SHINGLES VACCINES (1 of 2)] Future Scheduled 2023-03-17 BREAST CANCER [facility] Test 01:30:37 SCREENING [code = BREAST CANCER SCREENING] Future Scheduled 2023-03-17 Screening for [facility] Test 01:30:37 malignant neoplasm of colon (procedure) [code = 140119862] Future Scheduled 2023-03-17 Screening for [facility] Test 01:30:37 malignant neoplasm of colon (procedure) [code = 939475058] Future Scheduled 2023-03-17 HEPATITIS B VACCINES Met [facility] Test 01:30:37 (1 of 3 - Risk 3-dose series) [code = HEPATITIS B VACCINES (1 of 3 - Risk 3-dose series)] Future Scheduled 2023-03-17 65+ PNEUMOCOCCAL [facility] Test 01:30:37 VACCINE (4 - PPSV23 or PCV20) [code = 65+ PNEUMOCOCCAL VACCINE (4 - PPSV23 or PCV20)] Future Scheduled 2023-03-17 COVID-19 VACCINE (3 - Me [facility] Test 01:30:37 season) [code = COVID-19 VACCINE (3 - season)] Future Scheduled 2023-03-17 INFLUENZA VACCINE (#1) [facility] Test 01:30:37 [code = INFLUENZA VACCINE (#1)] Future Scheduled 2023-03-17 Screening for [facility] Test 01:30:37 malignant neoplasm of colon (procedure) [code = 652701935] Future Scheduled 2023-03-17 Screening for [facility] Test 01:30:37 malignant neoplasm of colon (procedure) [code = 833510585] Future Scheduled 2023-03-17 Screening for [facility] Test 01:30:37 malignant neoplasm of colon (procedure) [code = 931393335] Future Scheduled 2023-03-17 SHINGLES VACCINES (1 Met [facility] Test 01:30:37 of 2) [code = SHINGLES VACCINES (1 of 2)] Future Scheduled 2023-03-17 BREAST CANCER [facility] Test 01:30:37 SCREENING [code = BREAST CANCER SCREENING] Future Scheduled 2023-03-17 Screening for [facility] Test 01:30:37 malignant neoplasm of colon (procedure) [code = 785905681] Future Scheduled 2023-03-17 Screening for [facility] Test 01:30:37 malignant neoplasm of colon (procedure) [code = 476961212] Future Scheduled 2023-03-17 HEPATITIS B VACCINES Met [facility] Test 01:30:37 (1 of 3 - Risk 3-dose series) [code = HEPATITIS B VACCINES (1 of 3 - Risk 3-dose series)] Future Scheduled 2023-03-17 65+ PNEUMOCOCCAL [facility] Test 01:30:37 VACCINE (4 - PPSV23 or PCV20) [code = 65+ PNEUMOCOCCAL VACCINE (4 - PPSV23 or PCV20)] Future Scheduled 2023-03-17 COVID-19 VACCINE (3 - Me [facility] Test 01:30:37 season) [code = COVID-19 VACCINE (3 - season)] Future Scheduled 2023-03-17 INFLUENZA VACCINE (#1) [facility] Test 01:30:37 [code = INFLUENZA VACCINE (#1)] Future Scheduled 2023-03-10 Screening for [facility] Test 01:58:53 malignant neoplasm of colon (procedure) [code = 975607990] Future Scheduled 2023-03-10 Screening for [facility] Test 01:58:53 malignant neoplasm of colon (procedure) [code = 185579396] Future Scheduled 2023-03-10 Screening for [facility] Test 01:58:53 malignant neoplasm of colon (procedure) [code = 836731053] Future Scheduled 2023-03-10 SHINGLES VACCINES (1 Met [facility] Test 01:58:53 of 2) [code = SHINGLES VACCINES (1 of 2)] Future Scheduled 2023-03-10 BREAST CANCER [facility] Test 01:58:53 SCREENING [code = BREAST CANCER SCREENING] Future Scheduled 2023-03-10 Screening for [facility] Test 01:58:53 malignant neoplasm of colon (procedure) [code = 454302761] Future Scheduled 2023-03-10 Screening for [facility] Test 01:58:53 malignant neoplasm of colon (procedure) [code = 054066606] Future Scheduled 2023-03-10 HEPATITIS B VACCINES Met [facility] Test 01:58:53 (1 of 3 - Risk 3-dose series) [code = HEPATITIS B VACCINES (1 of 3 - Risk 3-dose series)] Future Scheduled 2023-03-10 RSV VACCINES > 60 YR Met [facility] Test 01:58:53 (1 - 1-dose 60+ series) [code = RSV VACCINES > 60 YR (1 - 1-dose 60+ series)] Future Scheduled 2023-03-10 65+ PNEUMOCOCCAL [facility] Test 01:58:53 VACCINE (4 - PPSV23 or PCV20) [code = 65+ PNEUMOCOCCAL VACCINE (4 - PPSV23 or PCV20)] Future Scheduled 2023-03-10 COVID-19 VACCINE (3 - [facility] Test 01:58:53 season) [code = COVID-19 VACCINE ( season)] Future Scheduled 2023-03-10 INFLUENZA VACCINE (#1) [facility] Test 01:58:53 [code = INFLUENZA VACCINE (#1)] Future Scheduled 2023-03-03 Screening for [facility] Test 11:31:14 malignant neoplasm of colon (procedure) [code = 366162531] Future Scheduled 2023-03-03 Screening for [facility] Test 11:31:14 malignant neoplasm of colon (procedure) [code = 932034511] Future Scheduled 2023-03-03 Screening for [facility] Test 11:31:14 malignant neoplasm of colon (procedure) [code = 163333773] Future Scheduled 2023-03-03 SHINGLES VACCINES (1 Met [facility] Test 11:31:14 of 2) [code = SHINGLES VACCINES (1 of 2)] Future Scheduled 2023-03-03 BREAST CANCER [facility] Test 11:31:14 SCREENING [code = BREAST CANCER SCREENING] Future Scheduled 2023-03-03 Screening for [facility] Test 11:31:14 malignant neoplasm of colon (procedure) [code = 188909903] Future Scheduled 2023-03-03 Screening for [facility] Test 11:31:14 malignant neoplasm of colon (procedure) [code = 721772014] Future Scheduled 2023-03-03 HEPATITIS B VACCINES Met [facility] Test 11:31:14 (1 of 3 - Risk 3-dose series) [code = HEPATITIS B VACCINES (1 of 3 - Risk 3-dose series)] Future Scheduled 2023-03-03 65+ PNEUMOCOCCAL [facility] Test 11:31:14 VACCINE (4 - PPSV23 or PCV20) [code = 65+ PNEUMOCOCCAL VACCINE (4 - PPSV23 or PCV20)] Future Scheduled 2023-03-03 COVID-19 VACCINE (3 - [facility] Test 11:31:14 season) [code = COVID-19 VACCINE ( season)] Future Scheduled 2023-03-03 INFLUENZA VACCINE (#1) [facility] Test 11:31:14 [code = INFLUENZA VACCINE (#1)] Future Scheduled 2023-02-15 [facility] Test 13:19:29 malignant neoplasm of colon (procedure) [code = 637457323] Future Scheduled 2023-02-15 Screening for [facility] Test 13:19:29 malignant neoplasm of colon (procedure) [code = 854491471] Future Scheduled 2023-02-15 Screening for [facility] Test 13:19:29 malignant neoplasm of colon (procedure) [code = 302028418] Future Scheduled 2023-02-15 SHINGLES VACCINES (1 Met [facility] Test 13:19:29 of 2) [code = SHINGLES VACCINES (1 of 2)] Future Scheduled 2023-02-15 BREAST CANCER [facility] Test 13:19:29 SCREENING [code = BREAST CANCER SCREENING] Future Scheduled 2023-02-15 Screening for [facility] Test 13:19:29 malignant neoplasm of colon (procedure) [code = 593462964] Future Scheduled 2023-02-15 Screening for [facility] Test 13:19:29 malignant neoplasm of colon (procedure) [code = 870097280] Future Scheduled 2023-02-15 HEPATITIS B VACCINES Met [facility] Test 13:19:29 (1 of 3 - Risk 3-dose series) [code = HEPATITIS B VACCINES (1 of 3 - Risk 3-dose series)] Future Scheduled 2023-02-15 COVID-19 VACCINE (3 - Me [facility] Test 13:19:29 Pfizer series) [code = COVID-19 VACCINE (3 - Pfizer series)] Future Scheduled 2023-02-15 65+ PNEUMOCOCCAL [facility] Test 13:19:29 VACCINE (4 - PPSV23 or PCV20) [code = 65+ PNEUMOCOCCAL VACCINE (4 - PPSV23 or PCV20)] Future Scheduled 2023-02-15 INFLUENZA VACCINE (#1) [facility] Test 13:19:29 [code = INFLUENZA VACCINE (#1)] Future Scheduled 2023-02-15 Screening for [facility] Test 13:19:29 malignant neoplasm of colon (procedure) [code = 832559719] Future Scheduled 2023-02-15 Screening for [facility] Test 13:19:29 malignant neoplasm of colon (procedure) [code = 061080598] Future Scheduled 2023-02-15 Screening for [facility] Test 13:19:29 malignant neoplasm of colon (procedure) [code = 266189181] Future Scheduled 2023-02-15 SHINGLES VACCINES (1 Met [facility] Test 13:19:29 of 2) [code = SHINGLES VACCINES (1 of 2)] Future Scheduled 2023-02-15 BREAST CANCER [facility] Test 13:19:29 SCREENING [code = BREAST CANCER SCREENING] Future Scheduled 2023-02-15 Screening for [facility] Test 13:19:29 malignant neoplasm of colon (procedure) [code = 433942995] Future Scheduled 2023-02-15 Screening for [facility] Test 13:19:29 malignant neoplasm of colon (procedure) [code = 687896164] Future Scheduled 2023-02-15 HEPATITIS B VACCINES Met [facility] Test 13:19:29 (1 of 3 - Risk 3-dose series) [code = HEPATITIS B VACCINES (1 of 3 - Risk 3-dose series)] Future Scheduled 2023-02-15 COVID-19 VACCINE (3 - Me [facility] Test 13:19:29 Pfizer series) [code = COVID-19 VACCINE (3 - Pfizer series)] Future Scheduled 2023-02-15 65+ PNEUMOCOCCAL [facility] Test 13:19:29 VACCINE (4 - PPSV23 or PCV20) [code = 65+ PNEUMOCOCCAL VACCINE (4 - PPSV23 or PCV20)] Future Scheduled 2023-02-15 INFLUENZA VACCINE (#1) [facility] Test 13:19:29 [code = INFLUENZA VACCINE (#1)] Future Scheduled 2023-02-15 Screening for [facility] Test 13:19:29 malignant neoplasm of colon (procedure) [code = 072116633] Future Scheduled 2023-02-15 Screening [facility] Test 13:19:29 malignant neoplasm of colon (procedure) [code = 321688512] Future Scheduled 2023-02-15 Screening for [facility] Test 13:19:29 malignant neoplasm of colon (procedure) [code = 197290735] Future Scheduled 2023-02-15 SHINGLES VACCINES (1 Met [facility] Test 13:19:29 of 2) [code = SHINGLES VACCINES (1 of 2)] Future Scheduled 2023-02-15 BREAST CANCER [facility] Test 13:19:29 SCREENING [code = BREAST CANCER SCREENING] Future Scheduled 2023-02-15 Screening for [facility] Test 13:19:29 malignant neoplasm of colon (procedure) [code = 901654117] Future Scheduled 2023-02-15 Screening for [facility] Test 13:19:29 malignant neoplasm of colon (procedure) [code = 529245145] Future Scheduled 2023-02-15 HEPATITIS B VACCINES Met [facility] Test 13:19:29 (1 of 3 - Risk 3-dose series) [code = HEPATITIS B VACCINES (1 of 3 - Risk 3-dose series)] Future Scheduled 2023-02-15 COVID-19 VACCINE (3 - Me [facility] Test 13:19:29 Pfizer series) [code = COVID-19 VACCINE (3 - Pfizer series)] Future Scheduled 2023-02-15 65+ PNEUMOCOCCAL [facility] Test 13:19:29 VACCINE (4 - PPSV23 or PCV20) [code = 65+ PNEUMOCOCCAL VACCINE (4 - PPSV23 or PCV20)] Future Scheduled 2023-02-15 INFLUENZA VACCINE (#1) [facility] Test 13:19:29 [code = INFLUENZA VACCINE (#1)] Future Scheduled 2023-02-15 Screening for [facility] Test 13:19:29 malignant neoplasm of colon (procedure) [code = 738583925] Future Scheduled 2023-02-15 Screening for [facility] Test 13:19:29 malignant neoplasm of colon (procedure) [code = 329535652] Future Scheduled 2023-02-15 [facility] for [facility] [facility]:29 malignant neoplasm of colon (procedure) [code = [id number]] Future Scheduled 2023-02-15 SHINGLES VACCINES (1 Met [facility] Test 13:19:29 of 2) [code = SHINGLES VACCINES (1 of 2)] Future Scheduled 2023-02-15 BREAST CANCER [facility] Test 13:19:29 SCREENING [code = BREAST CANCER SCREENING] Future Scheduled 2023-02-15 Screening for [facility] Test 13:19:29 malignant neoplasm of colon (procedure) [code = 134038192] Future Scheduled 2023-02-15 Screening for [facility] Test 13:19:29 malignant neoplasm of colon (procedure) [code = 770850771] Future Scheduled 2023-02-15 HEPATITIS B VACCINES Met [facility] Test 13:19:29 (1 of 3 - Risk 3-dose series) [code = HEPATITIS B VACCINES (1 of 3 - Risk 3-dose series)] Future Scheduled 2023-02-15 COVID-19 VACCINE (3 - Me [facility] Test 13:19:29 Pfizer series) [code = COVID-19 VACCINE (3 - Pfizer series)] Future Scheduled 2023-02-15 65+ PNEUMOCOCCAL [facility] Test 13:19:29 VACCINE (4 - PPSV23 or PCV20) [code = 65+ PNEUMOCOCCAL VACCINE (4 - PPSV23 or PCV20)] Future Scheduled 2023-02-15 INFLUENZA VACCINE (#1) [facility] Test 13:19:29 [code = INFLUENZA VACCINE (#1)] Future Scheduled 2023-02-15 Screening for [facility] Test 13:19:29 malignant neoplasm of colon (procedure) [code = 138540208] Future Scheduled 2023-02-15 Screening for [facility] Test 13:19:29 malignant neoplasm of colon (procedure) [code = 727678376] Future Scheduled 2023-02-15 Screening for [facility] Test 13:19:29 malignant neoplasm of colon (procedure) [code = 240409340] Future Scheduled 2023-02-15 SHINGLES VACCINES (1 Met [facility] Test 13:19:29 of 2) [code = SHINGLES VACCINES (1 of 2)] Future Scheduled 2023-02-15 BREAST CANCER [facility] Test 13:19:29 SCREENING [code = BREAST CANCER SCREENING] Future Scheduled 2023-02-15 Screening for [facility] Test 13:19:29 malignant neoplasm of colon (procedure) [code = 122730480] Future Scheduled 2023-02-15 Screening for [facility] Test 13:19:29 malignant neoplasm of colon (procedure) [code = 286570710] Future Scheduled 2023-02-15 HEPATITIS B VACCINES Met [facility] Test 13:19:29 (1 of 3 - Risk 3-dose series) [code = HEPATITIS B VACCINES (1 of 3 - Risk 3-dose series)] Future Scheduled 2023-02-15 COVID-19 VACCINE (3 - [facility] Test 13:19:29 Pfizer series) [code = COVID-19 VACCINE (3 - Pfizer series)] Future Scheduled 2023-02-15 65+ PNEUMOCOCCAL [facility] Test 13:19:29 VACCINE (4 - PPSV23 or PCV20) [code = 65+ PNEUMOCOCCAL VACCINE (4 - PPSV23 or PCV20)] Future Scheduled 2023-02-15 INFLUENZA VACCINE (#1) M [facility] Test 13:19:29 [code = INFLUENZA VACCINE (#1)] Future Scheduled 2023-02-10 Screening for [facility] Test 19:08:20 malignant neoplasm of colon (procedure) [code = 338265781] Future Scheduled 2023-02-10 Screening for [facility] Test 19:08:20 malignant neoplasm of colon (procedure) [code = 292908133] Future Scheduled 2023-02-10 Screening for [facility] Test 19:08:20 malignant neoplasm of colon (procedure) [code = 299854049] Future Scheduled 2023-02-10 SHINGLES VACCINES (1 Met [facility] Test 19:08:20 of 2) [code = SHINGLES VACCINES (1 of 2)] Future Scheduled 2023-02-10 BREAST CANCER [facility] Test 19:08:20 SCREENING [code = BREAST CANCER SCREENING] Future Scheduled 2023-02-10 Screening for [facility] Test 19:08:20 malignant neoplasm of colon (procedure) [code = 314023904] Future Scheduled 2023-02-10 Screening for [facility] Test 19:08:20 malignant neoplasm of colon (procedure) [code = 918025066] Future Scheduled 2023-02-10 HEPATITIS B VACCINES Met [facility] Test 19:08:20 (1 of 3 - Risk 3-dose series) [code = HEPATITIS B VACCINES (1 of 3 - Risk 3-dose series)] Future Scheduled 2023-02-10 COVID-19 VACCINE (3 - [facility] Test 19:08:20 Pfizer series) [code = COVID-19 VACCINE (3 - Pfizer series)] Future Scheduled 2023-02-10 65+ PNEUMOCOCCAL [facility] Test 19:08:20 VACCINE (4 - PPSV23 or PCV20) [code = 65+ PNEUMOCOCCAL VACCINE (4 - PPSV23 or PCV20)] Future Scheduled 2023-02-10 INFLUENZA VACCINE (#1) [facility] Test 19:08:20 [code = INFLUENZA VACCINE (#1)] Future Scheduled 2023-02-10 Screening for [facility] Test 19:08:20 malignant neoplasm of colon (procedure) [code = 985203343] Future Scheduled 2023-02-10 Screening for [facility] Test 19:08:20 malignant neoplasm of colon (procedure) [code = 830093724] Future Scheduled 2023-02-10 Screening for [facility] Test 19:08:20 malignant neoplasm of colon (procedure) [code = 233980231] Future Scheduled 2023-02-10 SHINGLES VACCINES (1 Met [facility] Test 19:08:20 of 2) [code = SHINGLES VACCINES (1 of 2)] Future Scheduled 2023-02-10 BREAST CANCER [facility] Test 19:08:20 SCREENING [code = BREAST CANCER SCREENING] Future Scheduled 2023-02-10 Screening for [facility] Test 19:08:20 malignant neoplasm of colon (procedure) [code = 752988261] Future Scheduled 2023-02-10 Screening for [facility] Test 19:08:20 malignant neoplasm of colon (procedure) [code = 074761205] Future Scheduled 2023-02-10 HEPATITIS B VACCINES Met [facility] Test 19:08:20 (1 of 3 - Risk 3-dose series) [code = HEPATITIS B VACCINES (1 of 3 - Risk 3-dose series)] Future Scheduled 2023-02-10 COVID-19 VACCINE (3 - Me [facility] Test 19:08:20 Pfizer series) [code = COVID-19 VACCINE (3 - Pfizer series)] Future Scheduled 2023-02-10 65+ PNEUMOCOCCAL [facility] Test 19:08:20 VACCINE (4 - PPSV23 or PCV20) [code = 65+ PNEUMOCOCCAL VACCINE (4 - PPSV23 or PCV20)] Future Scheduled 2023-02-10 INFLUENZA VACCINE (#1) [facility] Test 19:08:20 [code = INFLUENZA VACCINE (#1)] Future Scheduled 2023-02-07 Screening for [facility] Test 14:07:46 malignant neoplasm of colon (procedure) [code = 929536889] Future Scheduled 2023-02-07 Screening for [facility] Test 14:07:46 malignant neoplasm of colon (procedure) [code = 769957077] Future Scheduled 2023-02-07 Screening for [facility] Test 14:07:46 malignant neoplasm of colon (procedure) [code = 360039428] Future Scheduled 2023-02-07 SHINGLES VACCINES (1 Met [facility] Test 14:07:46 of 2) [code = SHINGLES VACCINES (1 of 2)] Future Scheduled 2023-02-07 BREAST CANCER [facility] Test 14:07:46 SCREENING [code = BREAST CANCER SCREENING] Future Scheduled 2023-02-07 Screening for [facility] Test 14:07:46 malignant neoplasm of colon (procedure) [code = 335173986] Future Scheduled 2023-02-07 Screening for [facility] Test 14:07:46 malignant neoplasm of colon (procedure) [code = 657624675] Future Scheduled 2023-02-07 HEPATITIS B VACCINES Met [facility] Test 14:07:46 (1 of 3 - Risk 3-dose series) [code = HEPATITIS B VACCINES (1 of 3 - Risk 3-dose series)] Future Scheduled 2023-02-07 COVID-19 VACCINE (3 - Me [facility] Test 14:07:46 Pfizer series) [code = COVID-19 VACCINE (3 - Pfizer series)] Future Scheduled 2023-02-07 65+ PNEUMOCOCCAL [facility] Test 14:07:46 VACCINE (4 - PPSV23 or PCV20) [code = 65+ PNEUMOCOCCAL VACCINE (4 - PPSV23 or PCV20)] Future Scheduled 2023-02-07 INFLUENZA VACCINE (#1) [facility] Test 14:07:46 [code = INFLUENZA VACCINE (#1)] Future Scheduled 2023 Screening for [facility] Test 08:21:28 malignant neoplasm of colon (procedure) [code = 416379993] Future Scheduled 2023 Screening for [facility] Test 08:21:28 malignant neoplasm of colon (procedure) [code = 810855621] Future Scheduled 2023 Screening for [facility] Test 08:21:28 malignant neoplasm of colon (procedure) [code = 201642005] Future Scheduled 2023 SHINGLES VACCINES (1 Met [facility] Test 08:21:28 of 2) [code = SHINGLES VACCINES (1 of 2)] Future Scheduled 2023 BREAST CANCER [facility] Test 08:21:28 SCREENING [code = BREAST CANCER SCREENING] Future Scheduled 2023 Screening for [facility] Test 08:21:28 malignant neoplasm of colon (procedure) [code = 359759049] Future Scheduled 2023 Screening for [facility] Test 08:21:28 malignant neoplasm of colon (procedure) [code = 946368422] Future Scheduled 2023 HEPATITIS B VACCINES Met [facility] Test 08:21:28 (1 of 3 - Risk 3-dose series) [code = HEPATITIS B VACCINES (1 of 3 - Risk 3-dose series)] Future Scheduled 2023 COVID-19 VACCINE (3 - Me [facility] Test 08:21:28 Pfizer series) [code = COVID-19 VACCINE (3 - Pfizer series)] Future Scheduled 2023 65+ PNEUMOCOCCAL [facility] Test 08:21:28 VACCINE (4 - PPSV23 if available, else PCV20) [code = 65+ PNEUMOCOCCAL VACCINE (4 - PPSV23 if available, else PCV20)] Future Scheduled 2023 INFLUENZA VACCINE (#1) [facility] Test 08:21:28 [code = INFLUENZA VACCINE (#1)] Future Scheduled 2023 Screening for [facility] Test 08:21:28 malignant neoplasm of colon (procedure) [code = 951446091] Future Scheduled 2023 Screening for [facility] Test 08:21:28 malignant neoplasm of colon (procedure) [code = 371156687] Future Scheduled 2023 Screening for [facility] Test 08:21:28 malignant neoplasm of colon (procedure) [code = 352632899] Future Scheduled 2023 SHINGLES VACCINES (1 Met [facility] Test 08:21:28 of 2) [code = SHINGLES VACCINES (1 of 2)] Future Scheduled 2023 BREAST CANCER [facility] Test 08:21:28 SCREENING [code = BREAST CANCER SCREENING] Future Scheduled 2023 Screening for [facility] Test 08:21:28 malignant neoplasm of colon (procedure) [code = 875961434] Future Scheduled 2023 Screening for [facility] Test 08:21:28 malignant neoplasm of colon (procedure) [code = 956264032] Future Scheduled 2023 HEPATITIS B VACCINES Met [facility] Test 08:21:28 (1 of 3 - Risk 3-dose series) [code = HEPATITIS B VACCINES (1 of 3 - Risk 3-dose series)] Future Scheduled 2023 COVID-19 VACCINE (3 - Me [facility] Test 08:21:28 Pfizer series) [code = COVID-19 VACCINE (3 - Pfizer series)] Future Scheduled 2023 65+ PNEUMOCOCCAL [facility] Test 08:21:28 VACCINE (4 - PPSV23 if available, else PCV20) [code = 65+ PNEUMOCOCCAL VACCINE (4 - PPSV23 if available, else PCV20)] Future Scheduled 2023 INFLUENZA VACCINE (#1) [facility] Test 08:21:28 [code = INFLUENZA VACCINE (#1)] Future Scheduled 2023-01-17 Screening for [facility] Test 02:09:59 malignant neoplasm of colon (procedure) [code = 672413857] Future Scheduled 2023-01-17 Screening for [facility] Test 02:09:59 malignant neoplasm of colon (procedure) [code = 182123712] Future Scheduled 2023-01-17 Screening for [facility] Test 02:09:59 malignant neoplasm of colon (procedure) [code = 210328925] Future Scheduled 2023-01-17 SHINGLES VACCINES (1 Met [facility] Test 02:09:59 of 2) [code = SHINGLES VACCINES (1 of 2)] Future Scheduled 2023-01-17 BREAST CANCER [facility] Test 02:09:59 SCREENING [code = BREAST CANCER SCREENING] Future Scheduled 2023-01-17 Screening for [facility] Test 02:09:59 malignant neoplasm of colon (procedure) [code = 609744657] Future Scheduled 2023-01-17 Screening for [facility] Test 02:09:59 malignant neoplasm of colon (procedure) [code = 309137152] Future Scheduled 2023-01-17 HEPATITIS B VACCINES Met [facility] Test 02:09:59 (1 of 3 - Risk 3-dose series) [code = HEPATITIS B VACCINES (1 of 3 - Risk 3-dose series)] Future Scheduled 2023-01-17 COVID-19 VACCINE (3 - Me [facility] Test 02:09:59 Pfizer series) [code = COVID-19 VACCINE (3 - Pfizer series)] Future Scheduled 2023-01-17 65+ PNEUMOCOCCAL [facility] Test 02:09:59 VACCINE (4 - PPSV23 if available, else PCV20) [code = 65+ PNEUMOCOCCAL VACCINE (4 - PPSV23 if available, else PCV20)] Future Scheduled 2023-01-17 INFLUENZA VACCINE (#1) M [facility] Test 02:09:59 [code = INFLUENZA VACCINE (#1)] Future Scheduled 2022-12-23 Screening for [facility] Test 06:27:39 malignant neoplasm of colon (procedure) [code = 661084245] Future Scheduled 2022-12-23 Screening for [facility] Test 06:27:39 malignant neoplasm of colon (procedure) [code = 859525553] Future Scheduled 2022-12-23 Screening for [facility] Test 06:27:39 malignant neoplasm of colon (procedure) [code = 062796057] Future Scheduled 2022-12-23 SHINGLES VACCINES (1 Met [facility] Test 06:27:39 of 2) [code = SHINGLES VACCINES (1 of 2)] Future Scheduled 2022-12-23 BREAST CANCER [facility] Test 06:27:39 SCREENING [code = BREAST CANCER SCREENING] Future Scheduled 2022-12-23 Screening for [facility] Test 06:27:39 malignant neoplasm of colon (procedure) [code = 406811301] Future Scheduled 2022-12-23 Screening for [facility] Test 06:27:39 malignant neoplasm of colon (procedure) [code = 561001595] Future Scheduled 2022-12-23 HEPATITIS B VACCINES Met [facility] Test 06:27:39 (1 of 3 - Risk 3-dose series) [code = HEPATITIS B VACCINES (1 of 3 - Risk 3-dose series)] Future Scheduled 2022-12-23 COVID-19 VACCINE (3 - [facility] Test 06:27:39 Pfizer series) [code = COVID-19 VACCINE (3 - Pfizer series)] Future Scheduled 2022-12-23 65+ PNEUMOCOCCAL [facility] Test 06:27:39 VACCINE (4 - PPSV23 if available, else PCV20) [code = 65+ PNEUMOCOCCAL VACCINE (4 - PPSV23 if available, else PCV20)] Future Scheduled 2022-12-23 INFLUENZA VACCINE Method [facility] Test 06:27:39 [code = INFLUENZA VACCINE] Future Scheduled 2022-12-23 Screening for [facility] Test 06:27:39 malignant neoplasm of colon (procedure) [code = 966074183] Future Scheduled 2022-12-23 Screening for [facility] Test 06:27:39 malignant neoplasm of colon (procedure) [code = 114225607] Future Scheduled 2022-12-23 Screening for [facility] Test 06:27:39 malignant neoplasm of colon (procedure) [code = 800511138] Future Scheduled 2022-12-23 SHINGLES VACCINES (1 Met [facility] Test 06:27:39 of 2) [code = SHINGLES VACCINES (1 of 2)] Future Scheduled 2022-12-23 BREAST CANCER [facility] Test 06:27:39 SCREENING [code = BREAST CANCER SCREENING] Future Scheduled 2022-12-23 Screening for [facility] Test 06:27:39 malignant neoplasm of colon (procedure) [code = 349870675] Future Scheduled 2022-12-23 Screening for [facility] Test 06:27:39 malignant neoplasm of colon (procedure) [code = 729879390] Future Scheduled 2022-12-23 HEPATITIS B VACCINES Met [facility] Test 06:27:39 (1 of 3 - Risk 3-dose series) [code = HEPATITIS B VACCINES (1 of 3 - Risk 3-dose series)] Future Scheduled 2022-12-23 COVID-19 VACCINE (3 - Me [facility] Test 06:27:39 Pfizer series) [code = COVID-19 VACCINE (3 - Pfizer series)] Future Scheduled 2022-12-23 65+ [facility] 06:27:39 VACCINE (4 - PPSV23 if available, else PCV20) [code = 65+ PNEUMOCOCCAL VACCINE (4 - PPSV23 if available, else PCV20)] Future Scheduled 2022-12-23 INFLUENZA VACCINE Method [facility] Test 06:27:39 [code = INFLUENZA VACCINE] Future Scheduled 2022-12-23 Screening for [facility] Test 06:27:39 malignant neoplasm of colon (procedure) [code = 815580303] Future Scheduled 2022-12-23 Screening for [facility] Test 06:27:39 malignant neoplasm of colon (procedure) [code = 348498692] Future Scheduled 2022-12-23 Screening for [facility] Test 06:27:39 malignant neoplasm of colon (procedure) [code = 660585612] Future Scheduled 2022-12-23 SHINGLES VACCINES (1 Met [facility] Test 06:27:39 of 2) [code = SHINGLES VACCINES (1 of 2)] Future Scheduled 2022-12-23 BREAST CANCER [facility] Test 06:27:39 SCREENING [code = BREAST CANCER SCREENING] Future Scheduled 2022-12-23 Screening for [facility] Test 06:27:39 malignant neoplasm of colon (procedure) [code = 561996842] Future Scheduled 2022-12-23 Screening for [facility] Test 06:27:39 malignant neoplasm of colon (procedure) [code = 035497578] Future Scheduled 2022-12-23 HEPATITIS B VACCINES Met [facility] Test 06:27:39 (1 of 3 - Risk 3-dose series) [code = HEPATITIS B VACCINES (1 of 3 - Risk 3-dose series)] Future Scheduled 2022-12-23 COVID-19 VACCINE (3 - [facility] Test 06:27:39 Pfizer series) [code = COVID-19 VACCINE (3 - Pfizer series)] Future Scheduled 2022-12-23 65+ PNEUMOCOCCAL [facility] Test 06:27:39 VACCINE (4 - PPSV23 if available, else PCV20) [code = 65+ PNEUMOCOCCAL VACCINE (4 - PPSV23 if available, else PCV20)] Future Scheduled 2022-12-23 INFLUENZA VACCINE Method [facility] Test 06:27:39 [code = INFLUENZA VACCINE] Future Scheduled 2022-12-23 Screening for [facility] Test 06:27:39 malignant neoplasm of colon (procedure) [code = 692480547] Future Scheduled 2022-12-23 Screening for [facility] Test 06:27:39 malignant neoplasm of colon (procedure) [code = 097453323] Future Scheduled 2022-12-23 Screening for [facility] Test 06:27:39 malignant neoplasm of colon (procedure) [code = 736066582] Future Scheduled 2022-12-23 SHINGLES VACCINES (1 Met [facility] Test 06:27:39 of 2) [code = SHINGLES VACCINES (1 of 2)] Future Scheduled 2022-12-23 BREAST CANCER [facility] Test 06:27:39 SCREENING [code = BREAST CANCER SCREENING] Future Scheduled 2022-12-23 Screening for [facility] Test 06:27:39 malignant neoplasm of colon (procedure) [code = 644659778] Future Scheduled 2022-12-23 Screening for [facility] Test 06:27:39 malignant neoplasm of colon (procedure) [code = 792765397] Future Scheduled 2022-12-23 HEPATITIS B VACCINES Met [facility] Test 06:27:39 (1 of 3 - Risk 3-dose series) [code = HEPATITIS B VACCINES (1 of 3 - Risk 3-dose series)] Future Scheduled 2022-12-23 COVID-19 VACCINE (3 - Me [facility] Test 06:27:39 Pfizer series) [code = COVID-19 VACCINE (3 - Pfizer series)] Future Scheduled 2022-12-23 65+ PNEUMOCOCCAL [facility] Test 06:27:39 VACCINE (4 - PPSV23 if available, else PCV20) [code = 65+ PNEUMOCOCCAL VACCINE (4 - PPSV23 if available, else PCV20)] Future Scheduled 2022-12-23 INFLUENZA VACCINE Method [facility] Test 06:27:39 [code = INFLUENZA VACCINE] Future Scheduled 2022-12-23 Screening for [facility] Test 06:27:39 malignant neoplasm of colon (procedure) [code = 934192175] Future Scheduled 2022-12-23 Screening for [facility] Test 06:27:39 malignant neoplasm of colon (procedure) [code = 159883005] Future Scheduled 2022-12-23 Screening for [facility] Test 06:27:39 malignant neoplasm of colon (procedure) [code = 256571568] Future Scheduled 2022-12-23 SHINGLES VACCINES (1 Met [facility] Test 06:27:39 of 2) [code = SHINGLES VACCINES (1 of 2)] Future Scheduled 2022-12-23 BREAST CANCER [facility] Test 06:27:39 SCREENING [code = BREAST CANCER SCREENING] Future Scheduled 2022-12-23 Screening for [facility] Test 06:27:39 malignant neoplasm of colon (procedure) [code = 264825322] Future Scheduled 2022-12-23 Screening for [facility] Test 06:27:39 malignant neoplasm of colon (procedure) [code = 038504017] Future Scheduled 2022-12-23 HEPATITIS B VACCINES Met [facility] Test 06:27:39 (1 of 3 - Risk 3-dose series) [code = HEPATITIS B VACCINES (1 of 3 - Risk 3-dose series)] Future Scheduled 2022-12-23 COVID-19 VACCINE (3 - [facility] Test 06:27:39 Pfizer series) [code = COVID-19 VACCINE (3 - Pfizer series)] Future Scheduled 2022-12-23 65+ PNEUMOCOCCAL [facility] Test 06:27:39 VACCINE (4 - PPSV23 if available, else PCV20) [code = 65+ PNEUMOCOCCAL VACCINE (4 - PPSV23 if available, else PCV20)] Future Scheduled 2022-12-23 ZZZ INFLUENZA VACCINE [facility] Test 06:27:39 [code = ZZZ INFLUENZA VACCINE] Future Scheduled 2022-12-23 Screening for [facility] Test 06:27:39 malignant neoplasm of colon (procedure) [code = 315793590] Future Scheduled 2022-12-23 Screening for [facility] Test 06:27:39 malignant neoplasm of colon (procedure) [code = 232619729] Future Scheduled 2022-12-23 Screening for [facility] Test 06:27:39 malignant neoplasm of colon (procedure) [code = 655647467] Future Scheduled 2022-12-23 SHINGLES VACCINES (1 Met [facility] Test 06:27:39 of 2) [code = SHINGLES VACCINES (1 of 2)] Future Scheduled 2022-12-23 BREAST CANCER [facility] Test 06:27:39 SCREENING [code = BREAST CANCER SCREENING] Future Scheduled 2022-12-23 Screening for [facility] Test 06:27:39 malignant neoplasm of colon (procedure) [code = 074522266] Future Scheduled 2022-12-23 Screening for [facility] Test 06:27:39 malignant neoplasm of colon (procedure) [code = 223079886] Future Scheduled 2022-12-23 HEPATITIS B VACCINES Met [facility] Test 06:27:39 (1 of 3 - Risk 3-dose series) [code = HEPATITIS B VACCINES (1 of 3 - Risk 3-dose series)] Future Scheduled 2022-12-23 COVID-19 VACCINE (3 - [facility] Test 06:27:39 Pfizer series) [code = COVID-19 VACCINE (3 - Pfizer series)] Future Scheduled 2022-12-23 65+ PNEUMOCOCCAL [facility] Test 06:27:39 VACCINE (4 - PPSV23 if available, else PCV20) [code = 65+ PNEUMOCOCCAL VACCINE (4 - PPSV23 if available, else PCV20)] Future Scheduled 2022-12-23 ZZZ INFLUENZA VACCINE [facility] Test 06:27:39 [code = ZZZ INFLUENZA VACCINE] Future Scheduled 2022-12-13 Screening for [facility] Test 16:46:16 malignant neoplasm of colon (procedure) [code = 276478262] Future Scheduled 2022-12-13 Screening for [facility] Test 16:46:16 malignant neoplasm of colon (procedure) [code = 083279032] Future Scheduled 2022-12-13 Screening for [facility] Test 16:46:16 malignant neoplasm of colon (procedure) [code = 175614342] Future Scheduled 2022-12-13 SHINGLES VACCINES (1 Met [facility] Test 16:46:16 of 2) [code = SHINGLES VACCINES (1 of 2)] Future Scheduled 2022-12-13 BREAST CANCER [facility] Test 16:46:16 SCREENING [code = BREAST CANCER SCREENING] Future Scheduled 2022-12-13 Screening for [facility] Test 16:46:16 malignant neoplasm of colon (procedure) [code = 957699027] Future Scheduled 2022-12-13 Screening for [facility] Test 16:46:16 malignant neoplasm of colon (procedure) [code = 859809216] Future Scheduled 2022-12-13 HEPATITIS B VACCINES Met [facility] Test 16:46:16 (1 of 3 - Risk 3-dose series) [code = HEPATITIS B VACCINES (1 of 3 - Risk 3-dose series)] Future Scheduled 2022-12-13 COVID-19 VACCINE (3 - [facility] Test 16:46:16 Pfizer series) [code = COVID-19 VACCINE (3 - Pfizer series)] Future Scheduled 2022-12-13 65+ PNEUMOCOCCAL [facility] Test 16:46:16 VACCINE (4 - PPSV23 if available, else PCV20) [code = 65+ PNEUMOCOCCAL VACCINE (4 - PPSV23 if available, else PCV20)] Future Scheduled 2022-12-13 INFLUENZA VACCINE Method [facility] Test 16:46:16 [code = INFLUENZA VACCINE] Future Scheduled 2022-12-13 Screening for [facility] Test 16:46:16 malignant neoplasm of colon (procedure) [code = [id number]] Future Scheduled 2022-12-13 Screening for [facility] Test 16:46:16 malignant neoplasm of colon (procedure) [code = [id number]] Future Scheduled 2022-12-13 Screening for [facility] Test 16:46:16 malignant neoplasm of colon (procedure) [code = [id number]] Future Scheduled 2022-12-13 SHINGLES VACCINES (1 Met [facility] Test 16:46:16 of 2) [code = SHINGLES VACCINES (1 of 2)] Future Scheduled 2022-12-13 BREAST CANCER [facility] Test 16:46:16 SCREENING [code = BREAST CANCER SCREENING] Future Scheduled 2022-12-13 Screening for [facility] Test 16:46:16 malignant neoplasm of colon (procedure) [code = 623020338] Future Scheduled 2022-12-13 Screening for [facility] Test 16:46:16 malignant neoplasm of colon (procedure) [code = 563869781] Future Scheduled 2022-12-13 HEPATITIS B VACCINES Met [facility] Test 16:46:16 (1 of 3 - Risk 3-dose series) [code = HEPATITIS B VACCINES (1 of 3 - Risk 3-dose series)] Future Scheduled 2022-12-13 COVID-19 VACCINE (3 - Me [facility] Test 16:46:16 Pfizer series) [code = COVID-19 VACCINE (3 - Pfizer series)] Future Scheduled 2022-12-13 65+ [facility]16 VACCINE (4 - PPSV23 if available, else PCV20) [code = 65+ PNEUMOCOCCAL VACCINE (4 - PPSV23 if available, else PCV20)] Future Scheduled 2022-12-13 INFLUENZA VACCINE Method [facility] Test 16:46:16 [code = INFLUENZA VACCINE] Future Scheduled 2022-12-13 Screening for [facility] Test 16:46:16 malignant neoplasm of colon (procedure) [code = [id number]] Future Scheduled 2022-12-13 Screening for [facility] Test 16:46:16 malignant neoplasm of colon (procedure) [code = 968959266] Future Scheduled 2022-12-13 Screening for [facility] Test 16:46:16 malignant neoplasm of colon (procedure) [code = 043279319] Future Scheduled 2022-12-13 SHINGLES VACCINES (1 Met [facility] Test 16:46:16 of 2) [code = SHINGLES VACCINES (1 of 2)] Future Scheduled 2022-12-13 BREAST CANCER [facility] Test 16:46:16 SCREENING [code = BREAST CANCER SCREENING] Future Scheduled 2022-12-13 Screening for [facility] Test 16:46:16 malignant neoplasm of colon (procedure) [code = 970067375] Future Scheduled 2022-12-13 Screening for [facility] Test 16:46:16 malignant neoplasm of colon (procedure) [code = 405213293] Future Scheduled 2022-12-13 HEPATITIS B VACCINES Met [facility] Test 16:46:16 (1 of 3 - Risk 3-dose series) [code = HEPATITIS B VACCINES (1 of 3 - Risk 3-dose series)] Future Scheduled 2022-12-13 COVID-19 VACCINE (3 - [facility] Test 16:46:16 Pfizer series) [code = COVID-19 VACCINE (3 - Pfizer series)] Future Scheduled 2022-12-13 65+ PNEUMOCOCCAL [facility] Test 16:46:16 VACCINE (4 - PPSV23 if available, else PCV20) [code = 65+ PNEUMOCOCCAL VACCINE (4 - PPSV23 if available, else PCV20)] Future Scheduled 2022-12-13 INFLUENZA VACCINE Method [facility] Test 16:46:16 [code = INFLUENZA VACCINE] Future Scheduled 2022-11-11 Screening for [facility] Test 09:27:47 malignant neoplasm of colon (procedure) [code = [id number]] Future Scheduled 2022-11-11 Screening for [facility] Test 09:27:47 malignant neoplasm of colon (procedure) [code = 402610374] Future Scheduled 2022-11-11 Screening for [facility] Test 09:27:47 malignant neoplasm of colon (procedure) [code = 412727646] Future Scheduled 2022-11-11 SHINGLES VACCINES (1 Met [facility] Test 09:27:47 of 2) [code = SHINGLES VACCINES (1 of 2)] Future Scheduled 2022-11-11 BREAST CANCER [facility] Test 09:27:47 SCREENING [code = BREAST CANCER SCREENING] Future Scheduled 2022-11-11 Screening for [facility] Test 09:27:47 malignant neoplasm of colon (procedure) [code = 719432828] Future Scheduled 2022-11-11 Screening for [facility] Test 09:27:47 malignant neoplasm of colon (procedure) [code = 091307403] Future Scheduled 2022-11-11 HEPATITIS B VACCINES Met [facility] Test 09:27:47 (1 of 3 - Risk 3-dose series) [code = HEPATITIS B VACCINES (1 of 3 - Risk 3-dose series)] Future Scheduled 2022-11-11 COVID-19 VACCINE (3 - Me [facility] Test 09:27:47 Pfizer series) [code = COVID-19 VACCINE (3 - Pfizer series)] Future Scheduled 2022-11-11 65+ PNEUMOCOCCAL [facility] Test 09:27:47 VACCINE (4 - PPSV23 if available, else PCV20) [code = 65+ PNEUMOCOCCAL VACCINE (4 - PPSV23 if available, else PCV20)] Future Scheduled 2022-11-11 INFLUENZA VACCINE Method [facility] Test 09:27:47 [code = INFLUENZA VACCINE] Future Scheduled 2022-11-11 Screening for [facility] Test 09:27:47 malignant neoplasm of colon (procedure) [code = 682114586] Future Scheduled 2022-11-11 Screening for [facility] Test 09:27:47 malignant neoplasm of colon (procedure) [code = 473834903] Future Scheduled 2022-11-11 Screening for [facility] Test 09:27:47 malignant neoplasm of colon (procedure) [code = 808539894] Future Scheduled 2022-11-11 SHINGLES VACCINES (1 Met [facility] Test 09:27:47 of 2) [code = SHINGLES VACCINES (1 of 2)] Future Scheduled 2022-11-11 BREAST CANCER [facility] Test 09:27:47 SCREENING [code = BREAST CANCER SCREENING] Future Scheduled 2022-11-11 Screening for [facility] Test 09:27:47 malignant neoplasm of colon (procedure) [code = 383456689] Future Scheduled 2022-11-11 Screening for [facility] Test 09:27:47 malignant neoplasm of colon (procedure) [code = 333953421] Future Scheduled 2022-11-11 HEPATITIS B VACCINES Met [facility] Test 09:27:47 (1 of 3 - Risk 3-dose series) [code = HEPATITIS B VACCINES (1 of 3 - Risk 3-dose series)] Future Scheduled 2022-11-11 COVID-19 VACCINE (3 - Me [facility] Test 09:27:47 Pfizer series) [code = COVID-19 VACCINE (3 - Pfizer series)] Future Scheduled 2022-11-11 65[facility] 09:27:47 VACCINE (4 - PPSV23 if available, else PCV20) [code = 65+ PNEUMOCOCCAL VACCINE (4 - PPSV23 if available, else PCV20)] Future Scheduled 2022-11-11 INFLUENZA VACCINE Method [facility] Test 09:27:47 [code = INFLUENZA VACCINE] Future Scheduled 2022-11-11 Screening for [facility] Test 09:27:47 malignant neoplasm of colon (procedure) [code = 968546412] Future Scheduled 2022-11-11 Screening for [facility] Test 09:27:47 malignant neoplasm of colon (procedure) [code = 518983710] Future Scheduled 2022-11-11 Screening for [facility] Test 09:27:47 malignant neoplasm of colon (procedure) [code = 323237611] Future Scheduled 2022-11-11 SHINGLES VACCINES (1 Met [facility] Test 09:27:47 of 2) [code = SHINGLES VACCINES (1 of 2)] Future Scheduled 2022-11-11 BREAST CANCER [facility] Test 09:27:47 SCREENING [code = BREAST CANCER SCREENING] Future Scheduled 2022-11-11 Screening for [facility] Test 09:27:47 malignant neoplasm of colon (procedure) [code = 278182866] Future Scheduled 2022-11-11 Screening for [facility] Test 09:27:47 malignant neoplasm of colon (procedure) [code = 111924298] Future Scheduled 2022-11-11 HEPATITIS B VACCINES Met [facility] Test 09:27:47 (1 of 3 - Risk 3-dose series) [code = HEPATITIS B VACCINES (1 of 3 - Risk 3-dose series)] Future Scheduled 2022-11-11 COVID-19 VACCINE (3 - [facility] Test 09:27:47 Pfizer series) [code = COVID-19 VACCINE (3 - Pfizer series)] Future Scheduled 2022-11-11 65+ PNEUMOCOCCAL [facility] Test 09:27:47 VACCINE (4 - PPSV23 if available, else PCV20) [code = 65+ PNEUMOCOCCAL VACCINE (4 - PPSV23 if available, else PCV20)] Future Scheduled 2022-11-11 INFLUENZA VACCINE Method [facility] Test 09:27:47 [code = INFLUENZA VACCINE] Future Scheduled 2022-10-27 Screening for [facility] Test 22:40:19 malignant neoplasm of colon (procedure) [code = 326449284] Future Scheduled 2022-10-27 Screening for [facility] Test 22:40:19 malignant neoplasm of colon (procedure) [code = 426064112] Future Scheduled 2022-10-27 Screening for [facility] Test 22:40:19 malignant neoplasm of colon (procedure) [code = 160810109] Future Scheduled 2022-10-27 SHINGLES VACCINES (1 Met [facility] Test 22:40:19 of 2) [code = SHINGLES VACCINES (1 of 2)] Future Scheduled 2022-10-27 BREAST CANCER [facility] Test 22:40:19 SCREENING [code = BREAST CANCER SCREENING] Future Scheduled 2022-10-27 Screening for [facility] Test 22:40:19 malignant neoplasm of colon (procedure) [code = 619787146] Future Scheduled 2022-10-27 Screening for [facility] Test 22:40:19 malignant neoplasm of colon (procedure) [code = 110794148] Future Scheduled 2022-10-27 HEPATITIS B VACCINES Met [facility] Test 22:40:19 (1 of 3 - Risk 3-dose series) [code = HEPATITIS B VACCINES (1 of 3 - Risk 3-dose series)] Future Scheduled 2022-10-27 COVID-19 VACCINE (3 - [facility] Test 22:40:19 Pfizer series) [code = COVID-19 VACCINE (3 - Pfizer series)] Future Scheduled 2022-10-27 65+ PNEUMOCOCCAL [facility] Test 22:40:19 VACCINE (4 - PPSV23 if available, else PCV20) [code = 65+ PNEUMOCOCCAL VACCINE (4 - PPSV23 if available, else PCV20)] Future Scheduled 2022-10-27 INFLUENZA VACCINE Method [facility] Test 22:40:19 [code = INFLUENZA VACCINE] Future Scheduled 2022-10-27 Screening for [facility] Test 22:40:19 malignant neoplasm of colon (procedure) [code = 191052800] Future Scheduled 2022-10-27 Screening for [facility] Test 22:40:19 malignant neoplasm of colon (procedure) [code = 376017956] Future Scheduled 2022-10-27 Screening for [facility] Test 22:40:19 malignant neoplasm of colon (procedure) [code = 467220425] Future Scheduled 2022-10-27 SHINGLES VACCINES (1 Met [facility] Test 22:40:19 of 2) [code = SHINGLES VACCINES (1 of 2)] Future Scheduled 2022-10-27 BREAST CANCER [facility] Test 22:40:19 SCREENING [code = BREAST CANCER SCREENING] Future Scheduled 2022-10-27 Screening for [facility] Test 22:40:19 malignant neoplasm of colon (procedure) [code = 055555099] Future Scheduled 2022-10-27 Screening for [facility] Test 22:40:19 malignant neoplasm of colon (procedure) [code = 021421298] Future Scheduled 2022-10-27 HEPATITIS B VACCINES Met [facility] Test 22:40:19 (1 of 3 - Risk 3-dose series) [code = HEPATITIS B VACCINES (1 of 3 - Risk 3-dose series)] Future Scheduled 2022-10-27 COVID-19 VACCINE (3 - Me [facility] Test 22:40:19 Pfizer series) [code = COVID-19 VACCINE (3 - Pfizer series)] Future Scheduled 2022-10-27 65[facility]:19 VACCINE (4 - PPSV23 if available, else PCV20) [code = 65+ PNEUMOCOCCAL VACCINE (4 - PPSV23 if available, else PCV20)] Future Scheduled 2022-10-27 INFLUENZA VACCINE Method [facility] Test 22:40:19 [code = INFLUENZA VACCINE] Future Scheduled 2022-09-10 SHINGLES VACCINES (1 Met [facility] Test 15:06:53 of 2) [code = SHINGLES VACCINES (1 of 2)] Future Scheduled 2022-09-10 BREAST CANCER [facility] Test 15:06:53 SCREENING [code = BREAST CANCER SCREENING] Future Scheduled 2022-09-10 COLONOSCOPY SCREENING [facility] Test 15:06:53 [code = COLONOSCOPY SCREENING] Future Scheduled 2022-09-10 HEPATITIS B VACCINES Met [facility] Test 15:06:53 (1 of 3 - Risk 3-dose series) [code = HEPATITIS B VACCINES (1 of 3 - Risk 3-dose series)] Future Scheduled 2022-09-10 COVID-19 VACCINE (3 - Me [facility] Test 15:06:53 Booster for Pfizer series) [code = COVID-19 VACCINE (3 - Booster for Pfizer series)] Future Scheduled 2022-09-10 65[facility]INE (4 - PPSV23 if available, else PCV20) [code = 65+ PNEUMOCOCCAL VACCINE (4 - PPSV23 if available, else PCV20)] Future Scheduled 2022-09-10 INFLUENZA VACCINE Method [facility] Test 15:06:53 [code = INFLUENZA VACCINE] Future Scheduled 2022-09-10 SHINGLES VACCINES (1 Met [facility] Test 15:06:53 of 2) [code = SHINGLES VACCINES (1 of 2)] Future Scheduled 2022-09-10 BREAST CANCER [facility] Test 15:06:53 SCREENING [code = BREAST CANCER SCREENING] Future Scheduled 2022-09-10 COLONOSCOPY SCREENING [facility] Test 15:06:53 [code = COLONOSCOPY SCREENING] Future Scheduled 2022-09-10 HEPATITIS B VACCINES Met [facility] Test 15:06:53 (1 of 3 - Risk 3-dose series) [code = HEPATITIS B VACCINES (1 of 3 - Risk 3-dose series)] Future Scheduled 2022-09-10 COVID-19 VACCINE (3 - Me [facility] Test 15:06:53 Booster for Pfizer series) [code = COVID-19 VACCINE (3 - Booster for Pfizer series)] Future Scheduled 2022-09-10 65+ [facility]:06:[facility] VACCINE (4 - PPSV23 if available, else PCV20) [code = 65+ PNEUMOCOCCAL VACCINE (4 - PPSV23 if available, else PCV20)] Future Scheduled 2022-09-10 INFLUENZA VACCINE Method [facility] Test 15:06:53 [code = INFLUENZA VACCINE] Future Scheduled 2022-09-10 SHINGLES VACCINES (1 Met [facility] Test 15:06:53 of 2) [code = SHINGLES VACCINES (1 of 2)] Future Scheduled 2022-09-10 BREAST CANCER [facility] Test 15:06:53 SCREENING [code = BREAST CANCER SCREENING] Future Scheduled 2022-09-10 COLONOSCOPY SCREENING [facility] Test 15:06:53 [code = COLONOSCOPY SCREENING] Future Scheduled 2022-09-10 HEPATITIS B VACCINES Met [facility] Test 15:06:53 (1 of 3 - Risk 3-dose series) [code = HEPATITIS B VACCINES (1 of 3 - Risk 3-dose series)] Future Scheduled 2022-09-10 COVID-19 VACCINE (3 - [facility] Test 15:06:53 Booster for Pfizer series) [code = COVID-19 VACCINE (3 - Booster for Pfizer series)] Future Scheduled 2022-09-10 65+ PNEUMOCOCCAL [facility] Test 15:06:53 VACCINE (4 - PPSV23 if available, else PCV20) [code = 65+ PNEUMOCOCCAL VACCINE (4 - PPSV23 if available, else PCV20)] Future Scheduled 2022-09-10 INFLUENZA VACCINE Method [facility] Test 15:06:53 [code = INFLUENZA VACCINE] Future Scheduled 2022-09-10 SHINGLES VACCINES (1 Met [facility] Test 15:06:53 of 2) [code = SHINGLES VACCINES (1 of 2)] Future Scheduled 2022-09-10 BREAST CANCER [facility] Test 15:06:53 SCREENING [code = BREAST CANCER SCREENING] Future Scheduled 2022-09-10 COLONOSCOPY SCREENING [facility] Test 15:06:53 [code = COLONOSCOPY SCREENING] Future Scheduled 2022-09-10 HEPATITIS B VACCINES Met [facility] Test 15:06:53 (1 of 3 - Risk 3-dose series) [code = HEPATITIS B VACCINES (1 of 3 - Risk 3-dose series)] Future Scheduled 2022-09-10 COVID-19 VACCINE (3 - [facility] Test 15:06:53 Booster for Pfizer series) [code = COVID-19 VACCINE (3 - Booster for Pfizer series)] Future Scheduled 2022-09-10 65[facility] VACCINE (4 - PPSV23 if available, else PCV20) [code = 65+ PNEUMOCOCCAL VACCINE (4 - PPSV23 if available, else PCV20)] Future Scheduled 2022-09-10 INFLUENZA VACCINE Method [facility] Test 15:06:53 [code = INFLUENZA VACCINE] Future Scheduled 2022-09-10 SHINGLES VACCINES (1 Met [facility] Test 15:06:53 of 2) [code = SHINGLES VACCINES (1 of 2)] Future Scheduled 2022-09-10 BREAST CANCER [facility] Test 15:06:53 SCREENING [code = BREAST CANCER SCREENING] Future Scheduled 2022-09-10 COLONOSCOPY SCREENING [facility] Test 15:06:53 [code = COLONOSCOPY SCREENING] Future Scheduled 2022-09-10 HEPATITIS B VACCINES Met [facility] Test 15:06:53 (1 of 3 - Risk 3-dose series) [code = HEPATITIS B VACCINES (1 of 3 - Risk 3-dose series)] Future Scheduled 2022-09-10 COVID-19 VACCINE (3 - [facility] Test 15:06:53 Booster for Pfizer series) [code = COVID-19 VACCINE (3 - Booster for Pfizer series)] Future Scheduled 2022-09-10 65+ [facility] VACCINE (4 - PPSV23 if available, else PCV20) [code = 65+ PNEUMOCOCCAL VACCINE (4 - PPSV23 if available, else PCV20)] Future Scheduled 2022-09-10 INFLUENZA VACCINE Method [facility] Test 15:06:53 [code = INFLUENZA VACCINE] Future Scheduled 2022-09-10 SHINGLES VACCINES (1 Met [facility] Test 15:06:53 of 2) [code = SHINGLES VACCINES (1 of 2)] Future Scheduled 2022-09-10 BREAST CANCER [facility] Test 15:06:53 SCREENING [code = BREAST CANCER SCREENING] Future Scheduled 2022-09-10 COLONOSCOPY SCREENING [facility] Test 15:06:53 [code = COLONOSCOPY SCREENING] Future Scheduled 2022-09-10 HEPATITIS B VACCINES Met [facility] Test 15:06:53 (1 of 3 - Risk 3-dose series) [code = HEPATITIS B VACCINES (1 of 3 - Risk 3-dose series)] Future Scheduled 2022-09-10 COVID-19 VACCINE (3 - [facility] Test 15:06:53 Booster for Pfizer series) [code = COVID-19 VACCINE (3 - Booster for Pfizer series)] Future Scheduled 2022-09-10 65+ PNEUMOCOCCAL [facility] Test 15:06:53 VACCINE (4 - PPSV23 if available, else PCV20) [code = 65+ PNEUMOCOCCAL VACCINE (4 - PPSV23 if available, else PCV20)] Future Scheduled 2022-09-10 INFLUENZA VACCINE Method [facility] Test 15:06:53 [code = INFLUENZA VACCINE] Future Scheduled 2022-09-10 SHINGLES VACCINES (1 Met [facility] Test 15:06:53 of 2) [code = SHINGLES VACCINES (1 of 2)] Future Scheduled 2022-09-10 BREAST CANCER [facility] Test 15:06:53 SCREENING [code = BREAST CANCER SCREENING] Future Scheduled 2022-09-10 COLONOSCOPY SCREENING [facility] Test 15:06:53 [code = COLONOSCOPY SCREENING] Future Scheduled 2022-09-10 HEPATITIS B VACCINES Met [facility] Test 15:06:53 (1 of 3 - Risk 3-dose series) [code = HEPATITIS B VACCINES (1 of 3 - Risk 3-dose series)] Future Scheduled 2022-09-10 COVID-19 VACCINE (3 - Me [facility] Test 15:06:53 Booster for Pfizer series) [code = COVID-19 VACCINE (3 - Booster for Pfizer series)] Future Scheduled 2022-09-10 65+ PNEUMOCOCCAL [facility] Test 15:06:53 VACCINE (4 - PPSV23 if available, else PCV20) [code = 65+ PNEUMOCOCCAL VACCINE (4 - PPSV23 if available, else PCV20)] Future Scheduled 2022-09-10 INFLUENZA VACCINE Method [facility] Test 15:06:53 [code = INFLUENZA VACCINE] Future Scheduled 2022-09-10 SHINGLES VACCINES (1 Met [facility] Test 15:06:53 of 2) [code = SHINGLES VACCINES (1 of 2)] Future Scheduled 2022-09-10 BREAST CANCER [facility] Test 15:06:53 SCREENING [code = BREAST CANCER SCREENING] Future Scheduled 2022-09-10 COLONOSCOPY SCREENING [facility] Test 15:06:53 [code = COLONOSCOPY SCREENING] Future Scheduled 2022-09-10 HEPATITIS B VACCINES Met [facility] Test 15:06:53 (1 of 3 - Risk 3-dose series) [code = HEPATITIS B VACCINES (1 of 3 - Risk 3-dose series)] Future Scheduled 2022-09-10 COVID-19 VACCINE (3 - Me [facility] Test 15:06:53 Booster for Pfizer series) [code = COVID-19 VACCINE (3 - Booster for Pfizer series)] Future Scheduled 2022-09-10 65[facility] VACCINE (4 - PPSV23 if available, else PCV20) [code = 65+ PNEUMOCOCCAL VACCINE (4 - PPSV23 if available, else PCV20)] Future Scheduled 2022-09-10 INFLUENZA VACCINE Method [facility] Test 15:06:53 [code = INFLUENZA VACCINE] Future Scheduled 2022-08-26 SHINGLES VACCINES (1 Met [facility] Test 14:43:48 of 2) [code = SHINGLES VACCINES (1 of 2)] Future Scheduled 2022-08-26 BREAST CANCER [facility] Test 14:43:48 SCREENING [code = BREAST CANCER SCREENING] Future Scheduled 2022-08-26 COLONOSCOPY SCREENING [facility] Test 14:43:48 [code = COLONOSCOPY SCREENING] Future Scheduled 2022-08-26 HEPATITIS B VACCINES Met [facility] Test 14:43:48 (1 of 3 - Risk 3-dose series) [code = HEPATITIS B VACCINES (1 of 3 - Risk 3-dose series)] Future Scheduled 2022-08-26 COVID-19 VACCINE (3 - [facility] Test 14:43:48 Booster for Pfizer series) [code = COVID-19 VACCINE (3 - Booster for Pfizer series)] Future Scheduled 2022-08-26 65[facility] VACCINE (4 - PPSV23 if available, else PCV20) [code = 65+ PNEUMOCOCCAL VACCINE (4 - PPSV23 if available, else PCV20)] Future Scheduled 2022-08-26 INFLUENZA VACCINE Method [facility] Test 14:43:48 [code = INFLUENZA VACCINE] Future Scheduled 2022-08-07 SHINGLES VACCINES (1 Met [facility] Test 23:30:11 of 2) [code = SHINGLES VACCINES (1 of 2)] Future Scheduled 2022-08-07 BREAST CANCER [facility] Test 23:30:11 SCREENING [code = BREAST CANCER SCREENING] Future Scheduled 2022-08-07 COLONOSCOPY SCREENING Me [facility] Test 23:30:11 [code = COLONOSCOPY SCREENING] Future Scheduled 2022-08-07 HEPATITIS B VACCINES Met [facility] Test 23:30:11 (1 of 3 - Risk 3-dose series) [code = HEPATITIS B VACCINES (1 of 3 - Risk 3-dose series)] Future Scheduled 2022-08-07 COVID-19 VACCINE (3 - Me [facility] Test 23:30:11 Booster for Pfizer series) [code = COVID-19 VACCINE (3 - Booster for Pfizer series)] Future Scheduled 2022-08-07 65[facility]:30:[facility] VACCINE (4 - PPSV23 if available, else PCV20) [code = 65+ PNEUMOCOCCAL VACCINE (4 - PPSV23 if available, else PCV20)] Future Scheduled 2022-08-07 INFLUENZA VACCINE Method [facility] Test 23:30:11 [code = INFLUENZA VACCINE] Future Scheduled 2022-08-07 SHINGLES VACCINES (1 Met [facility] Test 23:30:11 of 2) [code = SHINGLES VACCINES (1 of 2)] Future Scheduled 2022-08-07 BREAST CANCER [facility] Test 23:30:11 SCREENING [code = BREAST CANCER SCREENING] Future Scheduled 2022-08-07 COLONOSCOPY SCREENING [facility] Test 23:30:11 [code = COLONOSCOPY SCREENING] Future Scheduled 2022-08-07 HEPATITIS B VACCINES Met [facility] Test 23:30:11 (1 of 3 - Risk 3-dose series) [code = HEPATITIS B VACCINES (1 of 3 - Risk 3-dose series)] Future Scheduled 2022-08-07 COVID-19 VACCINE (3 - [facility] Test 23:30:11 Booster for Pfizer series) [code = COVID-19 VACCINE (3 - Booster for Pfizer series)] Future Scheduled 2022-08-07 65+ [facility]:30:11 VACCINE (4 - PPSV23 if available, else PCV20) [code = 65+ PNEUMOCOCCAL VACCINE (4 - PPSV23 if available, else PCV20)] Future Scheduled 2022-08-07 INFLUENZA VACCINE Method [facility] Test 23:30:11 [code = INFLUENZA VACCINE] Future Scheduled 2022-08-06 SHINGLES VACCINES (1 Met [facility] Test 15:48:02 of 2) [code = SHINGLES VACCINES (1 of 2)] Future Scheduled 2022-08-06 BREAST CANCER [facility] Test 15:48:02 SCREENING [code = BREAST CANCER SCREENING] Future Scheduled 2022-08-06 COLONOSCOPY SCREENING [facility] Test 15:48:02 [code = COLONOSCOPY SCREENING] Future Scheduled 2022-08-06 HEPATITIS B VACCINES Met [facility] Test 15:48:02 (1 of 3 - Risk 3-dose series) [code = HEPATITIS B VACCINES (1 of 3 - Risk 3-dose series)] Future Scheduled 2022-08-06 COVID-19 VACCINE (3 - [facility] Test 15:48:02 Booster for Pfizer series) [code = COVID-19 VACCINE (3 - Booster for Pfizer series)] Future Scheduled 2022-08-06 65+ [facility] VACCINE (4 - PPSV23 if available, else PCV20) [code = 65+ PNEUMOCOCCAL VACCINE (4 - PPSV23 if available, else PCV20)] Future Scheduled 2022-08-06 INFLUENZA VACCINE Method [facility] Test 15:48:02 [code = INFLUENZA VACCINE] Future Scheduled 2022-06-11 SHINGLES VACCINES (1 Met [facility] Test 16:10:12 of 2) [code = SHINGLES VACCINES (1 of 2)] Future Scheduled 2022-06-11 BREAST CANCER [facility] Test 16:10:12 SCREENING [code = BREAST CANCER SCREENING] Future Scheduled 2022-06-11 COLONOSCOPY SCREENING [facility] Test 16:10:12 [code = COLONOSCOPY SCREENING] Future Scheduled 2022-06-11 HEPATITIS B VACCINES Met [facility] Test 16:10:12 (1 of 3 - Risk 3-dose series) [code = HEPATITIS B VACCINES (1 of 3 - Risk 3-dose series)] Future Scheduled 2022-06-11 COVID-19 VACCINE (3 - [facility] Test 16:10:12 Booster for Pfizer series) [code = COVID-19 VACCINE (3 - Booster for Pfizer series)] Future Scheduled 2022-06-11 65[facility]:10[facility]12 VACCINE (4 - PPSV23 if available, else PCV20) [code = 65+ PNEUMOCOCCAL VACCINE (4 - PPSV23 if available, else PCV20)] Future Scheduled 2022-06-11 INFLUENZA VACCINE [facility] Test 16:10:12 [code = INFLUENZA VACCINE] Future Scheduled 2022-06-11 SHINGLES VACCINES (1 Met [facility] Test 16:10:12 of 2) [code = SHINGLES VACCINES (1 of 2)] Future Scheduled 2022-06-11 BREAST CANCER [facility] Test 16:10:12 SCREENING [code = BREAST CANCER SCREENING] Future Scheduled 2022-06-11 COLONOSCOPY SCREENING [facility] Test 16:10:12 [code = COLONOSCOPY SCREENING] Future Scheduled 2022-06-11 HEPATITIS B VACCINES Met [facility] Test 16:10:12 (1 of 3 - Risk 3-dose series) [code = HEPATITIS B VACCINES (1 of 3 - Risk 3-dose series)] Future Scheduled 2022-06-11 COVID-19 VACCINE (3 - Me [facility] Test 16:10:12 Booster for Pfizer series) [code = COVID-19 VACCINE (3 - Booster for Pfizer series)] Future Scheduled 2022-06-11 65+ [facility]:10:12 VACCINE (4 - PPSV23 if available, else PCV20) [code = 65+ PNEUMOCOCCAL VACCINE (4 - PPSV23 if available, else PCV20)] Future Scheduled 2022-06-11 INFLUENZA VACCINE Method [facility] Test 16:10:12 [code = INFLUENZA VACCINE] Future Scheduled 2022-06-11 SHINGLES VACCINES (1 Met [facility] Test 16:10:12 of 2) [code = SHINGLES VACCINES (1 of 2)] Future Scheduled 2022-06-11 BREAST CANCER [facility] Test 16:10:12 SCREENING [code = BREAST CANCER SCREENING] Future Scheduled 2022-06-11 COLONOSCOPY SCREENING [facility] Test 16:10:12 [code = COLONOSCOPY SCREENING] Future Scheduled 2022-06-11 HEPATITIS B VACCINES Met [facility] Test 16:10:12 (1 of 3 - Risk 3-dose series) [code = HEPATITIS B VACCINES (1 of 3 - Risk 3-dose series)] Future Scheduled 2022-06-11 COVID-19 VACCINE (3 - Me [facility] Test 16:10:12 Booster for Pfizer series) [code = COVID-19 VACCINE (3 - Booster for Pfizer series)] Future Scheduled 2022-06-11 65+ PNEUMOCOCCAL [facility] Test 16:10:12 VACCINE (4 - PPSV23 if available, else PCV20) [code = 65+ PNEUMOCOCCAL VACCINE (4 - PPSV23 if available, else PCV20)] Future Scheduled 2022-06-11 INFLUENZA VACCINE Method [facility] Test 16:10:12 [code = INFLUENZA VACCINE] Future Scheduled 2022-06-11 SHINGLES VACCINES (1 Met [facility] Test 16:10:12 of 2) [code = SHINGLES VACCINES (1 of 2)] Future Scheduled 2022-06-11 BREAST CANCER [facility] Test 16:10:12 SCREENING [code = BREAST CANCER SCREENING] Future Scheduled 2022-06-11 COLONOSCOPY SCREENING [facility] Test 16:10:12 [code = COLONOSCOPY SCREENING] Future Scheduled 2022-06-11 HEPATITIS B VACCINES Met [facility] Test 16:10:12 (1 of 3 - Risk 3-dose series) [code = HEPATITIS B VACCINES (1 of 3 - Risk 3-dose series)] Future Scheduled 2022-06-11 COVID-19 VACCINE (3 - [facility] Test 16:10:12 Booster for Pfizer series) [code = COVID-19 VACCINE (3 - Booster for Pfizer series)] Future Scheduled 2022-06-11 65[facility] 16:10:12 VACCINE (4 - PPSV23 if available, else PCV20) [code = 65+ PNEUMOCOCCAL VACCINE (4 - PPSV23 if available, else PCV20)] Future Scheduled 2022-06-11 INFLUENZA VACCINE [facility] Test 16:10:12 [code = INFLUENZA VACCINE] Future Scheduled 2022-06-11 SHINGLES VACCINES (1 Met [facility] Test 16:10:12 of 2) [code = SHINGLES VACCINES (1 of 2)] Future Scheduled 2022-06-11 BREAST CANCER [facility] Test 16:10:12 SCREENING [code = BREAST CANCER SCREENING] Future Scheduled 2022-06-11 COLONOSCOPY SCREENING [facility] Test 16:10:12 [code = COLONOSCOPY SCREENING] Future Scheduled 2022-06-11 HEPATITIS B VACCINES Met [facility] Test 16:10:12 (1 of 3 - Risk 3-dose series) [code = HEPATITIS B VACCINES (1 of 3 - Risk 3-dose series)] Future Scheduled 2022-06-11 COVID-19 VACCINE (3 - Me [facility] Test 16:10:12 Booster for Pfizer series) [...] 2022-06-11 SHINGLES VACCINES (1 Met [facility] Test 16:10:12 of 2) [code = SHINGLES VACCINES (1 of 2)] Future Scheduled 2022-06-11 BREAST CANCER [facility] Test 16:10:12 SCREENING [code = BREAST CANCER SCREENING] Future Scheduled 2022-06-11 COLONOSCOPY SCREENING Me [facility] Test 16:10:12 [code = COLONOSCOPY SCREENING] Future Scheduled 2022-06-11 HEPATITIS B VACCINES Met [facility] Test 16:10:12 (1 of 3 - Risk 3-dose series) [code = HEPATITIS B VACCINES (1 of 3 - Risk 3-dose series)] Future Scheduled 2022-06-11 COVID-19 VACCINE (3 - Me [facility] Test 16:10:12 Booster for Pfizer series) [...] 2022-06-11 SHINGLES VACCINES (1 Met [facility] Test 16:10:12 of 2) [code = SHINGLES VACCINES (1 of 2)] Future Scheduled 2022-06-11 BREAST CANCER [facility] Test 16:10:12 SCREENING [code = BREAST CANCER SCREENING] Future Scheduled 2022-06-11 COLONOSCOPY SCREENING [facility] Test 16:10:12 [code = COLONOSCOPY SCREENING] Future Scheduled 2022-06-11 HEPATITIS B VACCINES Met [facility] Test 16:10:12 (1 of 3 - Risk 3-dose series) [code = HEPATITIS B VACCINES (1 of 3 - Risk 3-dose series)] Future Scheduled 2022-06-11 COVID-19 VACCINE (3 - Me [facility] Test 16:10:12 Booster for Pfizer series) [code = COVID-19 VACCINE (3 - Booster for Pfizer series)] Future Scheduled 2022-06-11 65+ [facility] 16:10:12 VACCINE (4 - PPSV23 if available, else PCV20) [code = 65+ PNEUMOCOCCAL VACCINE (4 - PPSV23 if available, else PCV20)] Future Scheduled 2022-06-11 INFLUENZA VACCINE [facility] Test 16:10:12 [code = INFLUENZA VACCINE] Future Scheduled 2022-06-11 SHINGLES VACCINES (1 Met [facility] Test 16:10:12 of 2) [code = SHINGLES VACCINES (1 of 2)] Future Scheduled 2022-06-11 BREAST CANCER [facility] Test 16:10:12 SCREENING [code = BREAST CANCER SCREENING] Future Scheduled 2022-06-11 COLONOSCOPY SCREENING [facility] Test 16:10:12 [code = COLONOSCOPY SCREENING] Future Scheduled 2022-06-11 HEPATITIS B VACCINES Met [facility] Test 16:10:12 (1 of 3 - Risk 3-dose series) [code = HEPATITIS B VACCINES (1 of 3 - Risk 3-dose series)] Future Scheduled 2022-06-11 COVID-19 VACCINE (3 - Me [facility] Test 16:10:12 Booster for Pfizer series) [code = COVID-19 VACCINE (3 - Booster for Pfizer series)] Future Scheduled 2022-06-11 65+ [facility] 16:10:12 VACCINE (4 - PPSV23 if available, else PCV20) [code = 65+ PNEUMOCOCCAL VACCINE (4 - PPSV23 if available, else PCV20)] Future Scheduled 2022-06-11 INFLUENZA VACCINE Method [facility] Test 16:10:12 [code = INFLUENZA VACCINE] Future Scheduled 2022-06-11 SHINGLES VACCINES (1 Met [facility] Test 16:10:12 of 2) [code = SHINGLES VACCINES (1 of 2)] Future Scheduled 2022-06-11 BREAST CANCER [facility] Test 16:10:12 SCREENING [code = BREAST CANCER SCREENING] Future Scheduled 2022-06-11 COLONOSCOPY SCREENING [facility] Test 16:10:12 [code = COLONOSCOPY SCREENING] Future Scheduled 2022-06-11 HEPATITIS B VACCINES Met [facility] Test 16:10:12 (1 of 3 - Risk 3-dose series) [code = HEPATITIS B VACCINES (1 of 3 - Risk 3-dose series)] Future Scheduled 2022-06-11 COVID-19 VACCINE (3 - Me [facility] Test 16:10:12 Booster for Pfizer series) [...] 2022-05-10 SHINGLES VACCINES (1 Met [facility] Test 10:21:35 of 2) [code = SHINGLES VACCINES (1 of 2)] Future Scheduled 2022-05-10 BREAST CANCER [facility] Test 10:21:35 SCREENING [code = BREAST CANCER SCREENING] Future Scheduled 2022-05-10 COLONOSCOPY SCREENING [facility] Test 10:21:35 [code = COLONOSCOPY SCREENING] Future Scheduled 2022-05-10 HEPATITIS B VACCINES Met [facility] Test 10:21:35 (1 of 3 - Risk 3-dose series) [code = HEPATITIS B VACCINES (1 of 3 - Risk 3-dose series)] Future Scheduled 2022-05-10 COVID-19 VACCINE (3 - Me [facility] Test 10:21:35 Booster for Pfizer series) [...] 2022-05-10 SHINGLES VACCINES (1 Met [facility] Test 10:21:35 of 2) [code = SHINGLES VACCINES (1 of 2)] Future Scheduled 2022-05-10 BREAST CANCER [facility] Test 10:21:35 SCREENING [code = BREAST CANCER SCREENING] Future Scheduled 2022-05-10 COLONOSCOPY SCREENING [facility] Test 10:21:35 [code = COLONOSCOPY SCREENING] Future Scheduled 2022-05-10 HEPATITIS B VACCINES Met [facility] Test 10:21:35 (1 of 3 - Risk 3-dose series) [code = HEPATITIS B VACCINES (1 of 3 - Risk 3-dose series)] Future Scheduled 2022-05-10 COVID-19 VACCINE (3 - [facility] Test 10:21:35 Booster for Pfizer series) [code = COVID-19 VACCINE (3 - Booster for Pfizer series)] Future Scheduled 2022-05-10 65+ PNEUMOCOCCAL [facility] Test 10:21:35 VACCINE (4 - PPSV23 if available, else PCV20) [code = 65+ PNEUMOCOCCAL VACCINE (4 - PPSV23 if available, else PCV20)] Future Scheduled 2022-05-10 INFLUENZA VACCINE Method [facility] Test 10:21:35 [code = INFLUENZA VACCINE] Future Scheduled 2022-05-06 SHINGLES VACCINES (1 Met [facility] Test 14:03:13 of 2) [code = SHINGLES VACCINES (1 of 2)] Future Scheduled 2022-05-06 BREAST CANCER [facility] Test 14:03:13 SCREENING [code = BREAST CANCER SCREENING] Future Scheduled 2022-05-06 COLONOSCOPY SCREENING [facility] Test 14:03:13 [code = COLONOSCOPY SCREENING] Future Scheduled 2022-05-06 HEPATITIS B VACCINES Met [facility] Test 14:03:13 (1 of 3 - Risk 3-dose series) [code = HEPATITIS B VACCINES (1 of 3 - Risk 3-dose series)] Future Scheduled 2022-05-06 COVID-19 VACCINE (3 - [facility] Test 14:03:13 Booster for Pfizer series) [code = COVID-19 VACCINE (3 - Booster for Pfizer series)] Future Scheduled 2022-05-06 65+ PNEUMOCOCCAL [facility] Test 14:03:13 VACCINE (4 - PPSV23 if available, else PCV20) [code = 65+ PNEUMOCOCCAL VACCINE (4 - PPSV23 if available, else PCV20)] Future Scheduled 2022-05-06 INFLUENZA VACCINE Method [facility] Test 14:03:13 [code = INFLUENZA VACCINE] Future Scheduled 2022-04-30 SHINGLES VACCINES (1 Met [facility] Test 01:07:32 of 2) [code = SHINGLES VACCINES (1 of 2)] Future Scheduled 2022-04-30 BREAST CANCER [facility] Test 01:07:32 SCREENING [code = BREAST CANCER SCREENING] Future Scheduled 2022-04-30 COLONOSCOPY SCREENING [facility] Test 01:07:32 [code = COLONOSCOPY SCREENING] Future Scheduled 2022-04-30 HEPATITIS B VACCINES Met [facility] Test 01:07:32 (1 of 3 - [...] PCV20)] Future Scheduled 2022-04-30 INFLUENZA VACCINE Method [facility] Test 01:07:32 [code = INFLUENZA VACCINE] Future Scheduled 2022-04-30 SHINGLES VACCINES (1 Met [facility] Test 01:07:32 of 2) [code = SHINGLES VACCINES (1 of 2)] Future Scheduled 2022-04-30 BREAST CANCER [facility] Test 01:07:32 SCREENING [code = BREAST CANCER SCREENING] Future Scheduled 2022-04-30 COLONOSCOPY SCREENING [facility] Test 01:07:32 [code = COLONOSCOPY SCREENING] Future Scheduled 2022-04-30 HEPATITIS B VACCINES Met [facility] Test 01:07:32 (1 of 3 - Risk 3-dose series) [code = HEPATITIS B VACCINES (1 of 3 - Risk 3-dose series)] Future Scheduled 2022-04-30 COVID-19 VACCINE (3 - [facility] Test 01:07:32 Booster for Pfizer series) [code = COVID-19 VACCINE (3 - Booster for Pfizer series)] Future Scheduled 2022-04-30 65+ PNEUMOCOCCAL [facility] Test 01:07:32 VACCINE (4 - PPSV23 if available, else PCV20) [code = 65+ PNEUMOCOCCAL VACCINE (4 - PPSV23 if available, else PCV20)] Future Scheduled 2022-04-30 INFLUENZA VACCINE Method [facility] Test 01:07:32 [code = INFLUENZA VACCINE] Future Scheduled 2022-04-30 SHINGLES VACCINES (1 Met [facility] Test 01:07:32 of 2) [code = SHINGLES VACCINES (1 of 2)] Future Scheduled 2022-04-30 BREAST CANCER [facility] Test 01:07:32 SCREENING [code = BREAST CANCER SCREENING] Future Scheduled 2022-04-30 COLONOSCOPY SCREENING [facility] Test 01:07:32 [code = COLONOSCOPY SCREENING] Future Scheduled 2022-04-30 HEPATITIS B VACCINES Met [facility] Test 01:07:32 (1 of 3 - Risk 3-dose series) [code = HEPATITIS B VACCINES (1 of 3 - Risk 3-dose series)] Future Scheduled 2022-04-30 COVID-19 VACCINE (3 - Me [facility] Test 01:07:32 Booster for Pfizer series) [code = COVID-19 VACCINE (3 - Booster for Pfizer series)] Future Scheduled 2022-04-30 65+ PNEUMOCOCCAL [facility] Test 01:07:32 VACCINE (4 - PPSV23 if available, else PCV20) [code = 65+ PNEUMOCOCCAL VACCINE (4 - PPSV23 if available, else PCV20)] Future Scheduled 2022-04-30 INFLUENZA VACCINE Method [facility] Test 01:07:32 [code = INFLUENZA VACCINE] Future Scheduled 2022-04-25 SHINGLES VACCINES (1 Met [facility] Test 01:45:02 of 2) [code = SHINGLES VACCINES (1 of 2)] Future Scheduled 2022-04-25 BREAST CANCER [facility] Test 01:45:02 SCREENING [code = BREAST CANCER SCREENING] Future Scheduled 2022-04-25 COLONOSCOPY SCREENING [facility] Test 01:45:02 [code = COLONOSCOPY SCREENING] Future Scheduled 2022-04-25 HEPATITIS B VACCINES Met [facility] Test 01:45:02 (1 of 3 - Risk 3-dose series) [code = HEPATITIS B VACCINES (1 of 3 - Risk 3-dose series)] Future Scheduled 2022-04-25 COVID-19 VACCINE (3 - Me [facility] Test 01:45:02 Booster for Pfizer series) [code = COVID-19 VACCINE (3 - Booster for Pfizer series)] Future Scheduled 2022-04-25 65+ [facility] 01:45:02 VACCINE (4 - PPSV23 if available, else PCV20) [code = 65+ PNEUMOCOCCAL VACCINE (4 - PPSV23 if available, else PCV20)] Future Scheduled 2022-04-25 INFLUENZA VACCINE Method [facility] Test 01:45:02 [code = INFLUENZA VACCINE] Future Scheduled 2022-03-25 SHINGLES VACCINES (1 Met [facility] Test 14:48:42 of 2) [code = SHINGLES VACCINES (1 of 2)] Future Scheduled 2022-03-25 BREAST CANCER [facility] Test 14:48:42 SCREENING [code = BREAST CANCER SCREENING] Future Scheduled 2022-03-25 COLONOSCOPY SCREENING [facility] Test 14:48:42 [code = COLONOSCOPY SCREENING] Future Scheduled 2022-03-25 HEPATITIS B VACCINES Met [facility] Test 14:48:42 (1 of 3 - Risk 3-dose series) [code = HEPATITIS B VACCINES (1 of 3 - Risk 3-dose series)] Future Scheduled 2022-03-25 COVID-19 VACCINE (3 - [facility] Test 14:48:42 Booster for Pfizer series) [code = COVID-19 VACCINE (3 - Booster for Pfizer series)] Future Scheduled 2022-03-25 65[facility] 14:48:[facility] VACCINE (4 - PPSV23 if available, else PCV20) [code = 65+ PNEUMOCOCCAL VACCINE (4 - PPSV23 if available, else PCV20)] Future Scheduled 2022-03-25 INFLUENZA VACCINE Method [facility] Test 14:48:42 [code = INFLUENZA VACCINE] Future Scheduled 2022-03-25 SHINGLES VACCINES (1 Met [facility] Test 14:48:42 of 2) [code = SHINGLES VACCINES (1 of 2)] Future Scheduled 2022-03-25 BREAST CANCER [facility] Test 14:48:42 SCREENING [code = BREAST CANCER SCREENING] Future Scheduled 2022-03-25 COLONOSCOPY SCREENING Me [facility] Test 14:48:42 [code = COLONOSCOPY SCREENING] Future Scheduled 2022-03-25 HEPATITIS B VACCINES Met [facility] Test 14:48:42 (1 of 3 - [...] 2022-03-25 SHINGLES VACCINES (1 Met [facility] Test 14:48:42 of 2) [code = SHINGLES VACCINES (1 of 2)] Future Scheduled 2022-03-25 BREAST CANCER [facility] Test 14:48:42 SCREENING [code = BREAST CANCER SCREENING] Future Scheduled 2022-03-25 COLONOSCOPY SCREENING [facility] Test 14:48:42 [code = COLONOSCOPY SCREENING] Future Scheduled 2022-03-25 HEPATITIS B VACCINES Met [facility] Test 14:48:42 (1 of 3 - [...] 2)] Future Scheduled 2022-03-25 BREAST CANCER [facility] Test 14:48:42 SCREENING [code = BREAST CANCER SCREENING] Future Scheduled 2022-03-25 COLONOSCOPY SCREENING [facility] Test 14:48:42 [code = COLONOSCOPY SCREENING] Future Scheduled 2022-03-25 HEPATITIS B VACCINES Met [facility] Test 14:48:42 (1 of 3 - Risk 3-dose series) [code = HEPATITIS B VACCINES (1 of 3 - Risk 3-dose series)] Future Scheduled 2022-03-25 COVID-19 VACCINE (3 - [facility] Test 14:48:42 Booster for Pfizer series) [code = COVID-19 VACCINE (3 - Booster for Pfizer series)] Future Scheduled 2022-03-25 65+ [facility] 14:48:[facility] VACCINE (4 - PPSV23 if available, else PCV20) [code = 65+ PNEUMOCOCCAL VACCINE (4 - PPSV23 if available, else PCV20)] Future Scheduled 2022-03-25 INFLUENZA VACCINE [facility] Test 14:48:42 [code = INFLUENZA VACCINE] Future Scheduled 2022-03-25 SHINGLES VACCINES (1 Met [facility] Test 14:48:42 of 2) [code = SHINGLES VACCINES (1 of 2)] Future Scheduled 2022-03-25 BREAST CANCER [facility] Test 14:48:42 SCREENING [code = BREAST CANCER SCREENING] Future Scheduled 2022-03-25 COLONOSCOPY SCREENING [facility] Test 14:48:42 [code = COLONOSCOPY SCREENING] Future Scheduled 2022-03-25 HEPATITIS B VACCINES Met [facility] Test 14:48:42 (1 of 3 - Risk 3-dose series) [code = HEPATITIS B VACCINES (1 of 3 - Risk 3-dose series)] Future Scheduled 2022-03-25 COVID-19 VACCINE (3 - [facility] Test 14:48:42 Booster for Pfizer [...] 2022-03-25 SHINGLES VACCINES (1 Met [facility] Test 14:48:42 of 2) [code = SHINGLES VACCINES (1 of 2)] Future Scheduled 2022-03-25 BREAST CANCER [facility] Test 14:48:42 SCREENING [code = BREAST CANCER SCREENING] Future Scheduled 2022-03-25 COLONOSCOPY SCREENING [facility] Test 14:48:42 [code = COLONOSCOPY SCREENING] Future Scheduled 2022-03-25 HEPATITIS B VACCINES Met [facility] Test 14:48:42 (1 of 3 - [...] PCV20)] Future Scheduled 2022-03-25 INFLUENZA VACCINE Method [facility] Test 14:48:42 [code = INFLUENZA VACCINE] Future Scheduled 2022-03-25 SHINGLES VACCINES (1 Met [facility] Test 14:48:42 of 2) [code = SHINGLES VACCINES (1 of 2)] Future Scheduled 2022-03-25 BREAST CANCER [facility] Test 14:48:42 SCREENING [code = BREAST CANCER SCREENING] Future Scheduled 2022-03-25 COLONOSCOPY SCREENING [facility] Test 14:48:42 [code = COLONOSCOPY SCREENING] Future Scheduled 2022-03-25 HEPATITIS B VACCINES Met [facility] Test 14:48:42 (1 of 3 - Risk 3-dose series) [code = HEPATITIS B VACCINES (1 of 3 - Risk 3-dose series)] Future Scheduled 2022-03-25 COVID-19 VACCINE (3 - Me [facility] Test 14:48:42 Booster for Pfizer series) [code = COVID-19 VACCINE (3 - Booster for Pfizer series)] Future Scheduled 2022-03-25 65+ PNEUMOCOCCAL [facility] Test 14:48:42 VACCINE (4 - PPSV23 if available, else PCV20) [code = 65+ PNEUMOCOCCAL VACCINE (4 - PPSV23 if available, else PCV20)] Future Scheduled 2022-03-25 INFLUENZA VACCINE Method [facility] Test 14:48:42 [code = INFLUENZA VACCINE] Future Scheduled 2022-03-25 SHINGLES VACCINES (1 Met [facility] Test 14:48:42 of 2) [code = SHINGLES VACCINES (1 of 2)] Future Scheduled 2022-03-25 BREAST CANCER [facility] Test 14:48:42 SCREENING [code = BREAST CANCER SCREENING] Future Scheduled 2022-03-25 COLONOSCOPY SCREENING [facility] Test 14:48:42 [code = COLONOSCOPY SCREENING] Future Scheduled 2022-03-25 HEPATITIS B VACCINES Met [facility] Test 14:48:42 (1 of 3 - Risk 3-dose series) [code = HEPATITIS B VACCINES (1 of 3 - Risk 3-dose series)] Future Scheduled 2022-03-25 COVID-19 VACCINE (3 - [facility] Test 14:48:42 Booster for Pfizer series) [code = COVID-19 VACCINE (3 - Booster for Pfizer series)] Future Scheduled 2022-03-25 65+ PNEUMOCOCCAL [facility] Test 14:48:42 VACCINE (4 - PPSV23 if available, else PCV20) [code = 65+ PNEUMOCOCCAL VACCINE (4 - PPSV23 if available, else PCV20)] Future Scheduled 2022-03-25 INFLUENZA VACCINE Method [facility] Test 14:48:42 [code = INFLUENZA VACCINE] Future Scheduled 2022-03-25 SHINGLES VACCINES (1 Met [facility] Test 14:48:42 of 2) [code = SHINGLES VACCINES (1 of 2)] Future Scheduled 2022-03-25 BREAST CANCER [facility] Test 14:48:42 SCREENING [code = BREAST CANCER SCREENING] Future Scheduled 2022-03-25 COLONOSCOPY SCREENING [facility] Test 14:48:42 [code = COLONOSCOPY SCREENING] Future Scheduled 2022-03-25 HEPATITIS B VACCINES Met [facility] Test 14:48:42 (1 of 3 - Risk 3-dose series) [code = HEPATITIS B VACCINES (1 of 3 - Risk 3-dose series)] Future Scheduled 2022-03-25 COVID-19 VACCINE (3 - Me [facility] Test 14:48:42 Booster for Pfizer series) [code = COVID-19 VACCINE (3 - Booster for Pfizer series)] Future Scheduled 2022-03-25 65[facility] 14:48:[facility] VACCINE (4 - PPSV23 if available, else PCV20) [code = 65+ PNEUMOCOCCAL VACCINE (4 - PPSV23 if available, else PCV20)] Future Scheduled 2022-03-25 INFLUENZA VACCINE Method [facility] Test 14:48:42 [code = INFLUENZA VACCINE] Future Scheduled 2022-03-04 SHINGLES VACCINES (1 Met [facility] Test 14:03:57 of 2) [code = SHINGLES VACCINES (1 of 2)] Future Scheduled 2022-03-04 BREAST CANCER [facility] Test 14:03:57 SCREENING [code = BREAST CANCER SCREENING] Future Scheduled 2022-03-04 COLONOSCOPY SCREENING [facility] Test 14:03:57 [code = COLONOSCOPY SCREENING] Future Scheduled 2022-03-04 HEPATITIS B VACCINES Met [facility] Test 14:03:57 (1 of 3 - Risk 3-dose series) [code = HEPATITIS B VACCINES (1 of 3 - Risk 3-dose series)] Future Scheduled 2022-03-04 COVID-19 VACCINE (3 - [facility] Test 14:03:57 Booster for Pfizer series) [code = COVID-19 VACCINE (3 - Booster for Pfizer series)] Future Scheduled 2022-03-04 65[facility] 14:03:57 VACCINE (4 - PPSV23 if available, else PCV20) [code = 65+ PNEUMOCOCCAL VACCINE (4 - PPSV23 if available, else PCV20)] Future Scheduled 2022-03-04 INFLUENZA VACCINE Method [facility] Test 14:03:57 [code = INFLUENZA VACCINE] Future Scheduled 2022-03-04 SHINGLES VACCINES (1 Met [facility] Test 14:03:57 of 2) [code = SHINGLES VACCINES (1 of 2)] Future Scheduled 2022-03-04 BREAST CANCER [facility] Test 14:03:57 SCREENING [code = BREAST CANCER SCREENING] Future Scheduled 2022-03-04 COLONOSCOPY SCREENING [facility] Test 14:03:57 [code = COLONOSCOPY SCREENING] Future Scheduled 2022-03-04 HEPATITIS B VACCINES Met [facility] Test 14:03:57 (1 of 3 - Risk 3-dose series) [code = HEPATITIS B VACCINES (1 of 3 - Risk 3-dose series)] Future Scheduled 2022-03-04 COVID-19 VACCINE (3 - Me [facility] Test 14:03:57 Booster for Pfizer series) [code = COVID-19 VACCINE (3 - Booster for Pfizer series)] Future Scheduled 2022-03-04 65+ [facility] 14:03:57 VACCINE (4 - PPSV23 if available, else PCV20) [code = 65+ PNEUMOCOCCAL VACCINE (4 - PPSV23 if available, else PCV20)] Future Scheduled 2022-03-04 INFLUENZA VACCINE Method [facility] Test 14:03:57 [code = INFLUENZA VACCINE] Future Scheduled 2022-03-04 SHINGLES VACCINES (1 Met [facility] Test 14:03:57 of 2) [code = SHINGLES VACCINES (1 of 2)] Future Scheduled 2022-03-04 BREAST CANCER [facility] Test 14:03:57 SCREENING [code = BREAST CANCER SCREENING] Future Scheduled 2022-03-04 COLONOSCOPY SCREENING [facility] Test 14:03:57 [code = COLONOSCOPY SCREENING] Future Scheduled 2022-03-04 HEPATITIS B VACCINES Met [facility] Test 14:03:57 (1 of 3 - Risk 3-dose series) [code = HEPATITIS B VACCINES (1 of 3 - Risk 3-dose series)] Future Scheduled 2022-03-04 COVID-19 VACCINE (3 - [facility] Test 14:03:57 Booster for Pfizer series) [code = COVID-19 VACCINE (3 - Booster for Pfizer series)] Future Scheduled 2022-03-04 65+ [facility] 14:03:57 VACCINE (4 - PPSV23 if available, else PCV20) [code = 65+ PNEUMOCOCCAL VACCINE (4 - PPSV23 if available, else PCV20)] Future Scheduled 2022-03-04 INFLUENZA VACCINE Method [facility] Test 14:03:57 [code = INFLUENZA VACCINE] Future Scheduled 2022-03-04 SHINGLES VACCINES (1 Met [facility] Test 14:03:57 of 2) [code = SHINGLES VACCINES (1 of 2)] Future Scheduled 2022-03-04 BREAST CANCER [facility] Test 14:03:57 SCREENING [code = BREAST CANCER SCREENING] Future Scheduled 2022-03-04 COLONOSCOPY SCREENING [facility] Test 14:03:57 [code = COLONOSCOPY SCREENING] Future Scheduled 2022-03-04 HEPATITIS B VACCINES Met [facility] Test 14:03:57 (1 of 3 - Risk 3-dose series) [code = HEPATITIS B VACCINES (1 of 3 - Risk 3-dose series)] Future Scheduled 2022-03-04 COVID-19 VACCINE (3 - [facility] Test 14:03:57 Booster for Pfizer series) [code = COVID-19 VACCINE (3 - Booster for Pfizer series)] Future Scheduled 2022-03-04 65+ [facility] 14:03:57 VACCINE (4 - PPSV23 if available, else PCV20) [code = 65+ PNEUMOCOCCAL VACCINE (4 - PPSV23 if available, else PCV20)] Future Scheduled 2022-03-04 INFLUENZA VACCINE Method [facility] Test 14:03:57 [code = INFLUENZA VACCINE] Future Scheduled 2022-02-11 SHINGLES VACCINES (1 Met [facility] Test 13:39:12 of 2) [code = SHINGLES VACCINES (1 of 2)] Future Scheduled 2022-02-11 BREAST CANCER [facility] Test 13:39:12 SCREENING [code = BREAST CANCER SCREENING] Future Scheduled 2022-02-11 COLONOSCOPY SCREENING [facility] Test 13:39:12 [code = COLONOSCOPY SCREENING] Future Scheduled 2022-02-11 HEPATITIS B VACCINES Met [facility] Test 13:39:12 (1 of 3 - Risk 3-dose series) [code = HEPATITIS B VACCINES (1 of 3 - Risk 3-dose series)] Future Scheduled 2022-02-11 COVID-19 VACCINE (3 - Me [facility] Test 13:39:12 Booster for Pfizer series) [code = COVID-19 VACCINE (3 - Booster for Pfizer series)] Future Scheduled 2022-02-11 65+ [facility] 13:39:12 VACCINE (4 - PPSV23 or PCV20) [code = 65+ PNEUMOCOCCAL VACCINE (4 - PPSV23 or PCV20)] Future Scheduled 2022-02-11 INFLUENZA VACCINE Method [facility] Test 13:39:12 [code = INFLUENZA VACCINE] Future Scheduled 2022-01-29 SHINGLES VACCINES (1 Met [facility] Test 14:07:20 of 2) [code = SHINGLES VACCINES (1 of 2)] Future Scheduled 2022-01-29 BREAST CANCER [facility] Test 14:07:20 SCREENING [code = BREAST CANCER SCREENING] Future Scheduled 2022-01-29 COLONOSCOPY SCREENING [facility] Test 14:07:20 [code = COLONOSCOPY SCREENING] Future Scheduled 2022-01-29 HEPATITIS B VACCINES Met [facility] Test 14:07:20 (1 of 3 - Risk 3-dose series) [code = HEPATITIS B VACCINES (1 of 3 - Risk 3-dose series)] Future Scheduled 2022-01-29 COVID-19 VACCINE (3 - [facility] Test 14:07:20 Booster for Pfizer series) [code = COVID-19 VACCINE (3 - Booster for Pfizer series)] Future Scheduled 2022-01-29 65+ PNEUMOCOCCAL [facility] Test 14:07:20 VACCINE (4 - PPSV23 or PCV20) [code = 65+ PNEUMOCOCCAL VACCINE (4 - PPSV23 or PCV20)] Future Scheduled 2022-01-29 INFLUENZA VACCINE Method [facility] Test 14:07:20 [code = INFLUENZA VACCINE] Future Scheduled 2022-01-29 SHINGLES VACCINES (1 Met [facility] Test 14:07:20 of 2) [code = SHINGLES VACCINES (1 of 2)] Future Scheduled 2022-01-29 BREAST CANCER [facility] Test 14:07:20 SCREENING [code = BREAST CANCER SCREENING] Future Scheduled 2022-01-29 COLONOSCOPY SCREENING [facility] Test 14:07:20 [code = COLONOSCOPY SCREENING] Future Scheduled 2022-01-29 HEPATITIS B VACCINES Met [facility] Test 14:07:20 (1 of 3 - Risk 3-dose series) [code = HEPATITIS B VACCINES (1 of 3 - Risk 3-dose series)] Future Scheduled 2022-01-29 COVID-19 VACCINE (3 - [facility] Test 14:07:20 Booster for Pfizer series) [code = COVID-19 VACCINE (3 - Booster for Pfizer series)] Future Scheduled 2022-01-29 65+ [facility] 14:07:20 VACCINE (4 - PPSV23 or PCV20) [code = 65+ PNEUMOCOCCAL VACCINE (4 - PPSV23 or PCV20)] Future Scheduled 2022-01-29 INFLUENZA VACCINE Method [facility] Test 14:07:20 [code = INFLUENZA VACCINE] Future Scheduled 2022-01-29 SHINGLES VACCINES (1 Met [facility] Test 14:07:20 of 2) [code = SHINGLES VACCINES (1 of 2)] Future Scheduled 2022-01-29 BREAST CANCER [facility] Test 14:07:20 SCREENING [code = BREAST CANCER SCREENING] Future Scheduled 2022-01-29 COLONOSCOPY SCREENING [facility] Test 14:07:20 [code = COLONOSCOPY SCREENING] Future Scheduled 2022-01-29 HEPATITIS B VACCINES Met [facility] Test 14:07:20 (1 of 3 - Risk 3-dose series) [code = HEPATITIS B VACCINES (1 of 3 - Risk 3-dose series)] Future Scheduled 2022-01-29 COVID-19 VACCINE (3 - [facility] Test 14:07:20 Booster for Pfizer series) [code = COVID-19 VACCINE (3 - Booster for Pfizer series)] Future Scheduled 2022-01-29 65+ [facility] Test 14:07:20 VACCINE (4 - PPSV23 or PCV20) [code = 65+ PNEUMOCOCCAL VACCINE (4 - PPSV23 or PCV20)] Future Scheduled 2022-01-29 INFLUENZA VACCINE Method [facility] Test 14:07:20 [code = INFLUENZA VACCINE] Future Scheduled 2022-01-29 SHINGLES VACCINES (1 Met [facility] Test 14:07:20 of 2) [code = SHINGLES VACCINES (1 of 2)] Future Scheduled 2022-01-29 BREAST CANCER [facility] Test 14:07:20 SCREENING [code = BREAST CANCER SCREENING] Future Scheduled 2022-01-29 COLONOSCOPY SCREENING [facility] Test 14:07:20 [code = COLONOSCOPY SCREENING] Future Scheduled 2022-01-29 HEPATITIS B VACCINES Met [facility] Test 14:07:20 (1 of 3 - Risk 3-dose series) [code = HEPATITIS B VACCINES (1 of 3 - Risk 3-dose series)] Future Scheduled 2022-01-29 COVID-19 VACCINE (3 - [facility] Test 14:07:20 Booster for Pfizer series) [code = COVID-19 VACCINE (3 - Booster for Pfizer series)] Future Scheduled 2022-01-29 65+ PNEUMOCOCCAL [facility] Test 14:07:20 VACCINE (4 - PPSV23 or PCV20) [code = 65+ PNEUMOCOCCAL VACCINE (4 - PPSV23 or PCV20)] Future Scheduled 2022-01-29 INFLUENZA VACCINE Method [facility] Test 14:07:20 [code = INFLUENZA VACCINE] Future Scheduled 2022-01-20 SHINGLES VACCINES (1 Met [facility] Test 06:12:34 of 2) [code = SHINGLES VACCINES (1 of 2)] Future Scheduled 2022-01-20 Screening for [facility] Test 06:12:34 malignant neoplasm of cervix (procedure) [code = [id number]] Future Scheduled 2022-01-20 BREAST CANCER [facility] Test 06:12:34 SCREENING [code = BREAST CANCER SCREENING] Future Scheduled 2022-01-20 COLONOSCOPY SCREENING [facility] Test 06:12:34 [code = COLONOSCOPY SCREENING] Future Scheduled 2022-01-20 HEPATITIS B VACCINES Met [facility] Test 06:12:34 (1 of 3 - Risk 3-dose series) [code = HEPATITIS B VACCINES (1 of 3 - Risk 3-dose series)] Future Scheduled 2022-01-20 COVID-19 VACCINE (3 - [facility] Test 06:12:34 Booster for Pfizer series) [code = COVID-19 VACCINE (3 - Booster for Pfizer series)] Future Scheduled 2022-01-20 65+ PNEUMOCOCCAL [facility] Test 06:12:34 VACCINE (4 - PPSV23 or PCV20) [code = 65+ PNEUMOCOCCAL VACCINE (4 - PPSV23 or PCV20)] Future Scheduled 2022-01-20 INFLUENZA VACCINE Method [facility] Test 06:12:34 [code = INFLUENZA VACCINE] Future Scheduled 2022-01-16 SHINGLES VACCINES (1 Met [facility] Test 12:09:25 of 2) [code = SHINGLES VACCINES (1 of 2)] Future Scheduled 2022-01-16 Screening for [facility] Test 12:09:25 malignant neoplasm of cervix (procedure) [code = [id number]] Future Scheduled 2022-01-16 BREAST CANCER [facility] Test 12:09:25 SCREENING [code = BREAST CANCER SCREENING] Future Scheduled 2022-01-16 COLONOSCOPY SCREENING [facility] Test 12:09:25 [code = COLONOSCOPY SCREENING] Future Scheduled 2022-01-16 HEPATITIS B VACCINES Met [facility] Test 12:09:25 (1 of 3 - Risk 3-dose series) [code = HEPATITIS B VACCINES (1 of 3 - Risk 3-dose series)] Future Scheduled 2022-01-16 COVID-19 VACCINE (3 - [facility] Test 12:09:25 Booster for Pfizer series) [code = COVID-19 VACCINE (3 - Booster for Pfizer series)] Future Scheduled 2022-01-16 65+ PNEUMOCOCCAL [facility] Test 12:09:25 VACCINE (4 - PPSV23 or PCV20) [code = 65+ PNEUMOCOCCAL VACCINE (4 - PPSV23 or PCV20)] Future Scheduled 2022-01-16 INFLUENZA VACCINE Method [facility] Test 12:09:25 [code = INFLUENZA VACCINE] Future Scheduled 2022-01-14 SHINGLES VACCINES (1 Met [facility] Test 04:11:46 of 2) [code = SHINGLES VACCINES (1 of 2)] Future Scheduled 2022-01-14 Screening for [facility] Test 04:11:46 malignant neoplasm of cervix (procedure) [code = [id number]] Future Scheduled 2022-01-14 BREAST CANCER [facility] Test 04:11:46 SCREENING [code = BREAST CANCER SCREENING] Future Scheduled 2022-01-14 COLONOSCOPY SCREENING [facility] Test 04:11:46 [code = COLONOSCOPY SCREENING] Future Scheduled 2022-01-14 HEPATITIS B VACCINES Met [facility] Test 04:11:46 (1 of 3 - Risk 3-dose series) [code = HEPATITIS B VACCINES (1 of 3 - Risk 3-dose series)] Future Scheduled 2022-01-14 COVID-19 VACCINE (3 - [facility] Test 04:11:46 Booster for Pfizer series) [code = COVID-19 VACCINE (3 - Booster for Pfizer series)] Future Scheduled 2022-01-14 65+ PNEUMOCOCCAL [facility] Test 04:11:46 VACCINE (4 - PPSV23 or PCV20) [code = 65+ PNEUMOCOCCAL VACCINE (4 - PPSV23 or PCV20)] Future Scheduled 2022-01-14 INFLUENZA VACCINE Method [facility] Test 04:11:46 [code = INFLUENZA VACCINE] Future Scheduled 2021-08-26 Screening for [facility] Test 13:02:23 malignant neoplasm of cervix (procedure) [code = [id number]] Future Scheduled 2021-08-26 BREAST CANCER [facility] Test 13:02:23 SCREENING [code = BREAST CANCER SCREENING] Future Scheduled 2021-08-26 COLONOSCOPY SCREENING [facility] Test 13:02:23 [code = COLONOSCOPY SCREENING] Future Scheduled 2021-08-26 Screening for [facility] Test 13:02:23 malignant neoplasm of lung (procedure) [code = [id number]] Future Scheduled 2021-08-26 SHINGLES VACCINES (#1) [facility] Test 13:02:23 [code = SHINGLES VACCINES (#1)] Future Scheduled 2021-08-26 COVID-19 VACCINE (3 - Me [facility] Test 13:02:23 Pfizer risk 4-dose series) [code = COVID-19 VACCINE (3 - Pfizer risk 4-dose series)] Future Scheduled 2021-08-26 65+ [facility] Test 13:02:23 VACCINE (4 of 4 - PPSV23) [code = 65+ PNEUMOCOCCAL VACCINE (4 of 4 - PPSV23)] Future Scheduled 2021-08-26 INFLUENZA VACCINE Method [facility] Test 13:02:23 [code = INFLUENZA VACCINE] Encounters Start End Encounter Admission Attending Care Care Encounter Source Date/Time Date/Time Type Type Clinicians Facility Department ID 2022-02-18 Outpatient CHW CHW [id number] [place] 14:30:[address] [place] [address] 2021-07-14 Outpatient SADIKOVIC, [facility] [id number] [place] 09:33:51 [facility] 2021-06-02 Outpatient HEMATPOUR, [facility] [id number] [place] 13:58:59 [facility] 2021-04-28 Outpatient HEMATPOUR, [facility] [id number] [place] 11:21:22 [facility] 2021-03-20 Emergency [facility] [id number] [facility]12 Out[facility] HEMATPOUR, [facility] [id number] [place] 08:16:46 [facility] 2020-10-31 Outpatient HEMATPOUR, [facility] [id number] [place] 09:44:50 [facility] 2020-09-30 Outpatient HEMATPOUR, [facility] [id number] [place] 13:16:03 [place] [facility] 2023-03-22 2023-03-22 Outpatient [id number] PRIV PRIV [id number] [facility] 00:00:00 00:00:00 diyala_S [id number] Medic al 2023-03-18 2023-03-18 Transition ADELAIDE Tripp 1.2.840.114 [id number] Univers 00:00:00 00:00:00 of Care Neelima LYNCH 350.1.13.10 [place] [phone] [facility] [address] 2023-03-16 2023-03-17 Emergency Go Russell 1.2.840 .114 [id number] Univers 12:00:00 19:16:00 Lm Abbott 350.1.13.10 ity of HOSPITAL 4.2.7.2.686 Yomi as [id number] [facility] [address] 2023-03-16 2023-03-16 Detasseler [facility] JOSÉ ANTONIO 1.2.840.114 [id number] Univers 11:15:00 11:30:00 Visit Santiago Cardenas [facility] 350.1.13.10 [place] [id number] [facility] [address] 2023-03-16 2023-03-16 Outpatient R [facility] [id number] Univers 11:15:00 11:15:00 [facility] 2023-03-16 2023-03-16 Outpatient R [facility] [id number] Univers 09:30:00 09:30:00 [facility] 2023-03-16 2023-03-16 Orders Doctor CHRISTENSEN 1.2.840.114 [id number] Univers 00:00:00 00:00:00 Only Unassigned, JACKELINE 350.1.13.10 ity of [place] [facility] 4.2.7.2.686 Yomi as [id number] [place] [address] [place] 2023-03-11 2023-03-11 [facility] [id number] Univers 08:00:00 08:00:00 SANTIAGO charlie [facility] 2023-02-07 2023-02-07 [facility] [id number] Univers 09:00:00 09:00:00 SANTIAGO charlie [facility] 2023-01-27 2023-01-27 Emergency X SANKET, K [facility] [[email or web address] ERT [id number] Univers 10:47:00 18:59[facility] 2023-01-27 2023-01-27 Emergency SanketBill [facility] [[email or web address]] 1.2.840.114 [id number] Univers 10:47:00 18:59:00 Kiersten BULLOCK 350.1.13.10 i ty [place] [id number] [place] [id number] [place] 2023-01-17 2023-01-17 Refill Ronald [facility] [id number] [id number] Univers 00:00:00 00:00:00 [facility] 350.1.13.10 i [place] [id number] [address] 2022-11-26 2022-11-26 Outpatient R [facility] [id number] Univers 08:30:00 08:30:00 [facility] 2022-11-15 2022-11-15 Outpatient R [facility] [id number] Univers 08:30:00 08:30:00 [facility] 2022-11-02 2022-11-02 Outpatient R [facility] [id number] Univers 08:30:00 08:30:00 SANTIAGO [facility] 2022-10-27 2022-10-27 Telephone Ronald [facility] 1.2.840.114 [id number] Univers 00:00:00 00:00:00 [facility] 350.1.13.10 i [place] [id number] [address] 2022-10-06 2022-10-06 Outpatient R [facility] [id number] Univers 09:30:00 09:30:00 SANTIAGO barbosa [facility] 2022-09-26 2022-09-26 Refill [facility] UNIVERSIT [id number] [id number] Univers 00:00:00 00:00:00 [facility] 350.1.13.10 i [place] [id number] [place] [id number] [place] 2022-09-03 2022-09-03 Outpatient R [facility] [id number] Univers 11:00:00 11:00:00 SANTIAGO barbosa [facility] 2022-08-24 2022-08-24 Refill [facility], 1.2.840.3 [id number] Univers 00:00:00 00:00:00 Santiago [id number] ity of 3.104.2.7 [place] .3.984531 Medica l .8 Branch 2022-05-20 2022-05-20 Telephone [facility], [facility] 1.2.840.114 [id number] Univers 00:00:00 00:00:00 [facility] 350.1.13.10 i [place] [id number] [address] 2022-05-10 2022-05-10 Emergency X BYRON, [facility] [[email or web address]] ERT [id number] Univers 10:30:00 16:31:00 HOME itcharlie [facility] 2022-05-10 2022-05-10 Emergency [place], TRAUMA 1.2.840.114 [id number] Univers 10:30:00 16:31:00 Home B CENTER 350.1.13.10 [place] [id number] [facility] [address] 2022-05-10 2022-05-10 Telephone [facility], UNIVERSIT 1.2.840.114 [id number] Univers 00:00:00 00:00:00 [facility] HEALTH 350.1.13.10 i [place] [id number] [address] 2022-05-08 2022-05-08 Emergency X VICK [facility] [[email or web address]] ERT [id number] Univers 16:18:00 18:42:00 THERESA [facility] 2022-05-08 2022-05-08 [facility] 1.2.840.114 [id number] Univers 16:18:00 18:42:00 Theresa BULLOCK 350.1.13.10 ity [facility] 4.2.7.2.686 [facility] [id number] [address] 2022-05-07 2022-05-07 Telephone [facility] 1.2.840.114 [id number] Univers 00:00:00 00:00:00 [facility] 350.1.13.10 i [place] [id number] [address] 2022-05-06 2022-05-06 Emergency [facility] ERT [id number] Univers 14:13:00 18:19:00 ANETTE barbosa [facility] 2022-05-06 2022-05-06 Emergency [facility] 1.2.876.411 [id number] Univers 14:13:00 18:19:00 [place] KOBE 350.1.13.10 ity [facility] 4.2.7.2.686 [facility] [id number] [address] 2022-05-06 2022-05-06 Telephone [facility] 1.2.840.114 [id number] Univers 00:00:00 00:00:00 [facility] 350.1.13.10 i [place] [id number] [address] 2022-04-22 2022-04-22 Emergency [facility] ERT [id number] Univers 13:55:00 17:00:00 PAULETTE charlie [facility] 2022-04-22 2022-04-22 Emergency [facility] 1.2.832.546 [id number] Univers 13:55:00 17:00:00 [facility] [id number] i ty of [place] [id number] [place] [id number] [place] 2022-04-07 2022-04-07 Outpatient R [facility] [id number] Univers 20:40:00 20:40:00 ATTENDING ity [facility] 2022-04-07 2022-04-07 Telephone Devin, [id number] Univers 00:00:00 00:00:00 Robbi Hairston [id number] i ty of 3.104.2.7 [place] .[id number] Medica l .8 [place] 2022-03-05 2022-03-05 Detasseler Santiago Cardenas 1.2.840.1 [id number] Univers 13:45:00 14:00:00 Visit [facility] 80752.1.1 ity of 3.104.2.7 [place] .3.074313 Medica l .8 [place] 2022-03-05 2022-03-05 Office [facility], [facility] 1.2.654.807 8622 8469 Univers 13:00:00 13:30:00 Visit [facility] 350.1.13.10 i ty of [facility] 4.2.7.2.686 [facility] [id number] [address] 2022-03-05 2022-03-05 Outpatient R [facility] [id number] Univers 13:00:00 13:00:00 [facility] 2022-02-26 2022-02-26 Outpatient R [facility] [id number] Univers 08:30:00 08:30:00 [facility] 2022-02-26 2022-02-26 Outpatient R [facility] [id number] Univers 08:30:00 08:30:00 [facility] 2022-02-17 2022-02-17 Transition Stevo, 1.2.840.1 [id number] Univers 00:00:00 00:00:00 of Care Isaias Arredondo 71836.1.1 it y of 3.104.2.7 [place] .3.335255 Medica l .8 Branch 2022-02-10 2022-02-16 Inpatient X FRANK NVCAMDEN FAVIO [id number] Univers 22:59:00 19:27:00 PETER ity of [facility] 2022-02-10 2022-02-16 Hospital Reilly Means 1.2.840.1 [id number] Univers 22:59:00 19:27:00 Encounter CorneliusManolo conkliniza 56931.1.1 ity of [place] 3.104.2.7 [place] .3.751628 Medica l .8 Branch 2022-02-11 2022-02-11 Telephone East, 1.2.840.8 [id number] [id number] Univers 00:00:00 00:00:00 Santiago 02767.1.1 ity of 3.104.2.7 [place] .3.470271 Medica l .8 Branch 2022-02-10 2022-02-10 Travel 1.2.840.1 1.2.788.349 2114 [id number] Univers 00:00:00 00:00:00 61175.1.1 350.1.13.10 ity of 3.104.2.7 4.[place].7.3.698 [place] .3.586955 084.8 Medica l .8 Branch 2022-01-30 2022-01-30 Telephone East, 1.2.840.1 [id number] [id number] Univers 00:00:00 00:00:00 Santiago 25802.1.1 ity of 3.104.2.7 [place] .3.755896 Medica l .8 Branch 2022-01-06 2022-01-06 Orders Doctor FERMIN 1.2.840.114 [id number] Univers 00:00:00 00:00:00 Only Unassigned, JACKELINE 350.1.13.10 ity of [facility] 4.2.7.2.686 Yomi as [phone] [facility] porfirio 009 [place] 2021-12-25 2021-12-25 Orders Doctor FERMIN 1.2.840.114 [id number] Univers 00:00:00 00:00:00 Only Unassigned, JACKELINE 350.1.13.10 ity of [place] 4.2.7.2.686 Yomi as [id number] [facility] 009 Branch 2021-12-12 2021-12-13 Emergency X Bill COLES [facility] [[email or web address]] ERT [id number] Univers 23:53:00 01:52:00 ity of [facility] 2021-12-12 2021-12-13 Emergency Bill Coles [facility] [[email or web address]] 1.2.840.114 [id number] Univers 23:53:00 01:52:00 [facility]laura [facility] 350.1.13.10 i ty of [place].2.[place] [id number] [facility] 084 Branch 2021-11-20 2021-11-20 Detasseler [facility] UNIVERSIT 1.2.840.114 9 [id number] Univers 09:45:00 10:00:00 Visit [facility] 350.1.13.10 ity of [facility] 4.2.7.2.[place] [id number] [facility] 316 Branch 2021-11-20 2021-11-20 Office [facility] 1.2.813.301 [id number] 9084 Univers 08:30:00 09:00:00 Visit [facility] 350.1.13.10 i ty of [facility] 4.2.7.2.[place] [id number] [facility] 089 [place] 2021-11-20 2021-11-20 Outpatient R [facility] [id number] Univers 08:30:00 08:30:00 [facility] 2021-11-20 2021-11-20 Outpatient R [facility] [id number] Univers 08:30:00 08:30:00 [facility] 2021-11-20 2021-11-20 Outpatient R [facility] [id number] Univers 08:30:00 08:30:00 [facility] 2021-11-20 2021-11-20 Outpatient R [facility] [id number] Univers 08:30:00 08:30:00 SANTIAGO barbosa [facility] [place] [facility] 2021-10-24 2021-10-24 Emergency X ESVIN, [facility] [[email or web address]] ERT [id number] Univers 16:27:00 22:26:00 CHARITY barbosa [facility] [place] [facility] 2021-10-24 2021-10-24 Emergency X ESVIN, [facility] [[email or web address]] ERT [id number] Univers 16:27:00 22:26:00 CHARITY babrosa [facility] [place] [facility] 2021-10-24 2021-10-24 Emergency Reilly Means [facility] [[email or web address]] 1.2.840. 114 [id number] Univers 16:27:00 22:26:00 Charity Mcallister 350.1.13.10 ity [facility] 4.2.7.2.686 [facility] [id number] [address] 2021-10-23 2021-10-24 Emergency X ESVIN, [facility] [[email or web address]] ERT [id number] Univers 20:22:00 02:57:00 CHARITY [facility] 2021-10-23 2021-10-24 Emergency Esvin, [facility] [[email or web address]] 1.2.974.660 [id number] [id number] Univers 20:22:00 02:57:00 Charity CHAMBERSJEREMY 350.1.13.10 ity [facility] 4.2.7.2.686 [facility] [id number] [address] 2021-09-07 2021-09-07 [facility] [id number] Univers 08:00:00 08:00:00 GADIEL vogel clark [facility] 2021-09-07 2021-09-07 Outpatient R SELF, [facility] [id number] Univers 08:00:00 08:00:00 GADIEL rodas [facility] 2021-08-21 2021-08-21 Outpatient R [facility] [id number] Univers 10:45:00 10:45:00 SANTIAGO charlie [facility] [place] [facility] 2021-08-21 2021-08-21 Detasseler Santiago Cardenas 1.2.840.1 [id number] Univers 10:45:00 10:45:00 Visit [facility] 54155.1.1 ity of 3.104.2.7 [place] .3.180669 Medica l .8 Branch 2021-08-21 2021-08-21 Office East, 1.2.840.9 [id number] Univers 08:30:00 09:00:00 Visit Santiago 87499.1.1 ity of 3.104.2.7 [place] .3.195568 Medica l .8 Branch 2021-08-21 2021-08-21 Office East, UNIVERSIT 1.2.904.359 7656 8516 Univers 08:30:00 09:00:00 Visit Santiago [facility] 350.1.13.10 i ty of CLINICS 4.[place].2.[place] [id number] [facility] 089 [place] 2021-08-21 2021-08-21 Outpatient [facility] [id number] Univers 08:30:00 08:30:00 SANTIAGO ity of [facility] 2021-08-21 2021-08-21 Travel 1.2.840.1 1.2.371.939 8285 3865 Univers 00:00:00 00:00:00 23190.1.1 350.1.13.10 ity of 3.104.2.7 4.2.7.3.698 [place] .3.119451 084.8 Medica l .8 [place] 2021-08-14 2021-08-14 Telephone East, 1.2.840.4 [id number] Univers 00:00:00 00:00:00 Santiago 55332.1.1 ity of 3.104.2.7 [place] .3.131424 Medica l .8 Branch 2021-08-13 2021-08-13 Telephone East, 1.2.840.8 [id number] Univers 00:00:00 00:00:00 Santiago 92690.1.1 ity of 3.104.2.7 [place] .3.525522 Medica l .8 [place] 2021-08-11 2021-08-11 Outpatient R [facility] [id number] Univers 08:00:00 08:00:00 [facility] 2021-08-05 2021-08-05 Inpatient EDUARDO LealCL OUTD [id number] [facility] 05:24:00 05:24:00 Mike 31 [facility] 2021-07-20 2021-07-20 Outpatient R [facility] [id number] [facility] 10:00:00 10:00:00 [facility] 2021-07-14 2021-07-14 Office Pankaj, UTP 6400 1.2.840.114 13 [id number] [place] 08:45:00 09:34:[address] 350.1.13.58 Health 9.2.7.2.686 [id number] 1 2021-07-09 2021-07-09 Telephone [place], UTP 6400 1.2.840.114 [id number] [place] 00:00:00 00:00:[address] 350.1.13.58 Health 9.2.7.2.686 [id number] 1 2021-07-09 2021-07-09 Telephone [place], UTP 6400 1.2.840.114 [id number] [place] 00:00:00 00:00:[address] 350.1.13.58 Health 9.2.7.2.686 [id number] 1 2021-07-03 2021-07-03 Outpatient R [facility] [id number] Univers 08:00:00 08:00:00 SANTIAGO [facility] 2021-06-17 2021-06-17 Inpatient WINTER Leal INTE.02 [id number] [facility] 10:56:00 14:36:00 Mike 47 [facility] 2021-06-15 2021-06-15 [facility] [id number] Univers 10:15:00 11:07:21 GADIEL rodas [facility] 2021-06-15 2021-06-15 [facility] [id number] Univers 10:15:00 10:15:00 GADIEL rodas [facility] 2021-06-15 2021-06-15 Outpatient R SELF, [facility] [id number] Univers 10:15:00 10:15:00 GADIEL rodas [facility] 2021-06-15 2021-06-15 Orders Doctor 1.2.840.4 [id number] Univers 00:00:00 00:00:00 Only Unassigned, 03331.1.1 ity of [place] 3.104.2.7 [place] .3.423672 Medica l .8 Branch 2021-06-15 2021-06-15 Travel 1.2.840.1 1.2.610.943 9108 7719 Univers 00:00:00 00:00:00 97008.1.1 350.1.13.10 ity of 3.104.2.7 4.2.7.3.698 [place] .3.295607 084.8 Medica l .8 [place] 2021-06-11 2021-06-11 Refill [facility], [facility] 1.2.701.911 6802 9185 Univers 00:00:00 00:00:00 [facility] 350.1.13.10 i ty of [place] [id number] [address] 2021-06-11 2021-06-11 Refill East, 1.2.840.4 [id number] 185 Univers 00:00:00 00:00:00 Santiago 12119.1.1 ity of 3.104.2.7 [place] .3.313663 Medica l .8 [place] 2021-06-05 2021-06-05 Outpatient R EAST, [facility] [id number] Univers 09:00:00 09:00:00 SANTIAGO itcharlie of [facility] 2021-06-02 2021-06-02 Telephone East, [facility] 1.2.840.114 [id number] Univers 00:00:00 00:00:00 [facility] 350.1.13.10 i ty of [place] [id number] [address] 2021-06-02 2021-06-02 Telephone East, 1.2.840.8 [id number] [id number] Univers 00:00:00 00:00:00 Santiago 97129.1.1 ity of 3.104.2.7 [place] .3.118251 Medica l .8 Branch 2021-05-29 2021-05-29 Telephone East, 1.2.840.7 [id number] 94490 Univers 00:00:00 00:00:00 Santiago 29704.1.1 ity of 3.104.2.7 [place] .3.852469 Medica l .8 Branch 2021-05-29 2021-05-29 Telephone East, 1.2.840.6 [id number] 902 95046 Univers 00:00:00 00:00:00 Santiago 97880.1.1 ity of 3.104.2.7 [place] .3.675177 Medica l .8 [place] 2021-05-25 2021-05-25 Outpatient R RODO, [facility] [id number] Univers 08:00:00 08:00:00 GADIEL barbosa o f [facility] 2021-04-29 2021-04-29 Outpatient [facility] [id number] Univers 08:00:00 08:00:00 NIKOLAI barbosa [facility] [place] [facility] 2021-04-28 2021-04-28 Telephone Jailyn, 1.2.840.5 [id number] Methodi 00:00:00 00:00:[address] 3.430.2.7 Hospit a .3.210060 l .8 2021-04-28 2021-04-28 Telephone [place], UTP 6400 1.2.840.114 [id number] [place] 00:00:00 00:00:[address] 350.1.13.58 Health 9.2.7.2.686 [id number] 1 2021-03-31 2021-03-31 Orders Carol Ann, 1.2.840.1 [id number] Methodi 00:00:00 00:00:00 Only Sarai Lieberman 48614.1.1 979 s t 3.430.2.7 Hospit a .3.078305 l .8 2021-03-30 2021-03-30 Outpatient R RODO, [facility] [id number] Univers 08:45:00 08:45:00 GADIEL itcharlie o f [facility] 2021-03-24 2021-03-24 Telephone Jailyn, 1.2.840.5 [id number] 21 [id number] Methodi 00:00:00 00:00:[address] 3.430.2.7 Hospit a .3.786578 l .8 2021-02-13 2021-02-13 Telephone Ronald, 1.2.840.3 [id number] 876 08914 Univers 00:00:00 00:00:00 Santiago 78228.1.1 ity of 3.104.2.7 [facility].832281 Medica l .8 [place] 2021-01-28 2021-01-28 [facility] [id number] Univers 08:45:00 09:37:00 NIKOLAI raheemcharlie of [facility] 2021-01-28 2021-01-28 Travel 1.2.840.1 1.2.036.764 5437 9777 Univers 00:00:00 00:00:00 03746.1.1 350.1.13.10 ity of 3.104.2.7 4.2.7.3.698 [place] .3.605727 084.8 Medica l .8 [place] 2021-01-19 2021-01-19 Telephone Pelletier, 1.2.840.1 [id number] [id number] Methodi 00:00:00 00:00:[address] 3.430.2.7 Hospit a .3.010027 l .8 2021-01-04 2021-01-04 Letter Shelia, 1.2.840.5 [id number] 00215 696 Univers 00:00:00 00:00:00 (Out) Dagoberto H 58902.1.1 ity of 3.104.2.7 [place] .3.233807 Medica l .8 Branch 2021-01-04 2021-01-04 Dmitry Bass, 1.2.840.6 [id number] 09494 696 Univers 00:00:00 00:00:00 (Out) Dagoberto H 78113.1.1 ity of 3.104.2.7 [place] .3.467158 Medica l .8 Branch 2021-01-03 2021-01-03 Dmitry Bass, 1.2.840.5 [id number] 72683 790 Univers 00:00:00 00:00:00 (Out) Dagoberto H 10734.1.1 ity of 3.104.2.7 [place] .3.793896 Medica l .8 Branch 2021-01-03 2021-01-03 Dmitry Bass, 1.2.840.4 [id number] 48488 790 Univers 00:00:00 00:00:00 (Out) Dagoberto H 93693.1.1 ity of 3.104.2.7 [place] .3.425053 Medica l .8 [place] 2021-01-02 2021-01-02 Outpatient R [facility] [id number] Univers 13:40:00 13:40:00 ity of [facility] 2021-01-02 2021-01-02 Laboratory Cuba Franks 1.2.840.9 [id number] [id number] Univers 12:14:13 12:57:34 Only Lab, [facility] Fam Pob I 81133.1.1 ity of 3.104.2.7 [place] .3.971529 Medica l .8 Branch 2021-01-02 2021-01-02 Laboratory Cuba Franks 1.2.840.0 761024 [id number] [id number] Univers 12:14:13 12:57:34 Only Lab, [facility] Fam Pob I 12223.1.1 ity of 3.104.2.7 [place] .3.826732 Medica l .8 Branch 2021-01-02 2021-01-02 Travel 1.2.840.1 1.2.066.470 0852 2306 Univers 00:00:00 00:00:00 15619.1.1 350.1.13.10 ity of 3.104.2.7 4.2.7.3.698 [place] .3.273430 084.8 Medica l .8 Branch 2021-01-02 2021-01-02 Letter Doctor 1.2.840.1 [id number] 948 Univers 00:00:00 00:00:00 (Out) Unassigned, 74053.1.1 ity of [place] 3.104.2.7 [place] .3.707171 Medica l .8 Branch 2021-01-02 2021-01-02 Letter Doctor 1.2.840.4 [id number] 946 Univers 00:00:00 00:00:00 (Out) Unassigned, 80791.1.1 ity of [place] 3.104.2.7 [place] .3.689181 Medica l .8 [place] 2021-01-02 2021-01-02 Travel 1.2.840.1 1.2.667.393 3900 2306 Univers 00:00:00 00:00:00 06582.1.1 350.1.13.10 ity of 3.104.2.7 4.2.7.3.698 [place] .3.891178 084.8 Medica l .8 [place] 2021-01-02 2021-01-02 Letter Doctor 1.2.840.6 [id number] 948 Univers 00:00:00 00:00:00 (Out) Unassigned, 42147.1.1 ity of [place] 3.104.2.7 [place] .3.899478 Medica l .8 Branch 2021-01-02 2021-01-02 Letter Doctor 1.2.840.7 [id number] 56251 946 Univers 00:00:00 00:00:00 (Out) Unassigned, 11989.1.1 ity of [place] 3.104.2.7 [place] .3.208435 Medica l .8 [place] 2020-12-22 2020-12-22 Telephone Devin, 1.2.840.8 [id number] 862 89225 [facility] 00:00:00 00:00:00 Eligionda R 75508.1.1 i ty of 3.104.2.7 [place] .3.582535 Medica l .8 [place] 2020-12-22 2020-12-22 Telephone Devin, 1.2.840.5 [id number] 862 56641 Univers 00:00:00 00:00:00 Eligionda R 06470.1.1 i ty of 3.104.2.7 [place] .3.762378 Medica l .8 [place] 2020-12-12 2020-12-12 Office [place], UTP 6400 1.2.840.114 12 [id number] 07:42:02 08:18:[address] 350.1.13.58 9.2.7.2.686 [id number] 1 2020-12-12 2020-12-12 Office [place], UTP 6400 1.2.840.114 12 [id number] [place] 07:42:02 08:18:[address] 350.1.13.58 Health 9.2.7.2.686 [id number] 1 2020-12-09 2020-12-09 Telephone Carol Ann, 1.2.840.1 [id number] Methodi 00:00:00 00:00:00 Sarai Lieberman 35328.1.1 316 s t 3.430.2.7 Hospit a .3.307797 l .8 2020-12-08 2020-12-08 [facility], 1.2.840.1 [id number] 2100 812018 Methodi 12:35:54 23:59:00 Encounter Ray 00887.1.[address] 3.430.2.7 Hospit a .3.148450 l .8 2020-12-08 2020-12-08 [facility], 1.2.840.1 [id number] 46016 65200 Methodi 17:25:00 17:30:[address] 3.430.2.7 Hospit a .3.792357 l .8 2020-12-08 2020-12-08 Office Jailyn, 1.2.840.1 [id number] 23986 25858 Methodi 10:30:00 11:39:56 Visit Ray [address]4220.1.[address] 3.430.2.7 Hospit a .3.260678 l .8 2020-12-08 2020-12-08 Travel 1.2.840.1 1.2.814.006 6952 570966 Methodi 00:00:00 00:00:[address] 3.430.2.7 0.2.7.3.698 Ho spita .3.528023 084.8 l .8 2020-12-02 2020-12-02 Detasseler [facility] UNIVERSIT 1.2.840.114 8 [id number] 10:20:06 10:36:19 Visit [facility] 350.1.13.10 CLINICS 4.2.7.2.686 549.1195500 316 2020-12-02 2020-12-02 Detasseler Santiago Cardenas 1.2.840.1 [id number] [facility] 10:20:06 10:36:19 Visit [facility] 18140.1.1 ity of 3.104.2.7 [place] .3.059239 Medica l .8 [place] 2020-12-02 2020-12-02 Detasseler Santiago Cardenas 1.2.840.1 [id number] [facility] 10:20:06 10:36:19 Visit [facility] 50338.1.1 ity of 3.104.2.7 [place] .3.801342 Medica l .8 Branch 2020-12-02 2020-12-02 Office Shelby Cradenas.2.840.7 [id number] 528 [facility] 08:31:37 09:01:37 Visit Santiago 93200.1.1 ity of 3.104.2.7 [place] .3.152503 Medica l .8 [place] 2020-12-02 2020-12-02 Outpatient R RONALD [facility] [id number] Univers 09:00:00 09:00:00 [facility] 2020-11-25 2020-11-25 [facility] 1.2.840.114 [id number] 65 11:06:30 11:58:14 Visit Devinaleshia Hairston RECEPTION MANAGER 350.1.13.10 REGIONAL 4.2.7.2.686 MATERNAL [id number] & CHILD 107 [facility] 2020-11-25 2020-11-25 Office Devin, 1.2.840.1 [id number] 48301 865 Univers 11:06:30 11:58:14 Visit Robbi Marika 74221.1.1 i ty of 3.104.2.7 [place] .3.536158 Medica l .[address] [place] [address] 2020-11-25 2020-11-25 Office Devin, 1.2.840.8 [id number] 55177 865 Univers 11:06:30 11:58:14 Visit Robbi Marika 80663.1.1 i ty of 3.104.2.7 [place] .3.533203 Medica l .[address] [place] [address] 2020-11-25 2020-11-25 Outpatient R [facility] [id number] 288 Univers 11:00:00 11:00:00 [facility] 2020-11-25 2020-11-25 [facility] 1.2.480.501 6022 4592 00:00:00 00:00:00 [facility] 350.1.13.10 [facility] 4.2.7.2.686 [id number] 9 2020-11-25 2020-11-25 Tele[facility] 1.2.396.209 4980 0821 00:00:00 00:00:00 Eligiomeredith Hairston RECEPTION MANAGER 350.1.13.10 REGIONAL 4.2.7.2.686 MATERNAL [id number] & CHILD 107 [facility] 2020-11-25 2020-11-25 Telephone Devin, 1.2.840.5 [id number] 855 50113 Univers 00:00:00 00:00:00 Devina R 66591.1.1 i ty of 3.104.2.7 [place] .3.672474 Medica l .8 Branch 2020-11-25 2020-11-25 Refill [facility], 1.2.840.5 [id number] 45004 592 Univers 00:00:00 00:00:00 Santiago 94113.1.1 ity of 3.104.2.7 [place] .3.400294 Medica l .8 Branch 2020-11-25 2020-11-25 Travel 1.2.840.1 1.2.775.165 3213 0247 Univers 00:00:00 00:00:00 26229.1.1 350.1.13.10 ity of 3.104.2.7 4.2.7.3.698 [place] .3.939468 084.8 Medica l .8 [place] 2020-11-25 2020-11-25 Orders Doctor 1.2.840.5 [id number] 23284 064 Univers 00:00:00 00:00:00 Only Unassigned, 91303.1.1 ity of [place] 3.104.2.7 [place] .3.719761 Medica l .8 Branch 2020-11-25 2020-11-25 Telephone Beltran, 1.2.840.5 [id number] 855 97677 Univers 00:00:00 00:00:00 Eligiondaleshia R 59365.1.1 i ty of 3.104.2.7 [place] .3.671704 Medica l .8 Branch 2020-11-25 2020-11-25 Refill [facility], 1.2.840.4 [id number] 97129 592 Univers 00:00:00 00:00:00 Santiago 55831.1.1 ity of 3.104.2.7 [place] .3.221405 Medica l .8 Branch 2020-11-25 2020-11-25 Travel 1.2.840.1 1.2.062.266 4236 0247 Univers 00:00:00 00:00:00 82840.1.1 350.1.13.10 ity of 3.104.2.7 4.2.7.3.698 [place] .3.284946 084.8 Medica l .8 Branch 2020-11-25 2020-11-25 Orders Doctor 1.2.840.0 [id number] 65379 064 Univers 00:00:00 00:00:00 Only Unassigned, 80693.1.1 ity of [place] 3.104.2.7 [place] .3.454146 Medica l .8 Branch 2020-11-14 2020-11-14 Abstract Rodas, 1.2.840.1 [id number] 18268 80638 Methodi 00:00:00 00:00:[address] 3.430.2.7 Hospit a .3.833986 l .8 2020-11-14 2020-11-14 Telephone Clark, 1.2.840.1 [id number] 2100 739265 Methodi 00:00:00 00:00:[address] 3.430.2.7 Hospit a .3.593880 l .8 2020-11-12 2020-11-12 Outpatient [facility] [id number] 323 Univers 08:30:00 08:30:00 SANTIAGO barbosa [facility] 2020-11-07 2020-11-07 Telephone KIMBERLEY Ortiz 6400 1.2.840.114 124 [id number] 00:00:00 00:00:[address] 350.1.13.58 9.2.7.2.686 [id number] 1 2020-11-07 2020-11-07 Telephone Agustina Ortiz 6400 1.2.840.11 4 [id number] [place] 00:00:00 00:00:[address] 350.1.13.58 Health 9.2.7.2.686 [id number] 1 2020-10-31 2020-10-31 Office HematpoKIMBERLEY ardon 6400 1.2.840.114 12 [id number] [place] 07:54:00 09:45:[address] 350.1.13.58 Health 9.2.7.2.686 [id number] 1 2020-10-30 2020-10-30 Abstract Rody Maguire UTP 6400 1.2.840.1 14 [id number] [place] 00:00:00 00:00:[address] 350.1.13.58 Health 9.2.7.2.686 [id number] 1 2020-10-29 2020-10-29 Refill [place], 1.2.840.0 [id number] 86446 400 Univers 00:00:00 00:00:00 Santiago 14716.1.1 ity of 3.104.2.7 [place] .3.646435 Medica l .8 [place] 2020-10-29 2020-10-29 Refill [place], 1.2.840.2 [id number] 81499 400 Univers 00:00:00 00:00:00 Santiago 79021.1.1 ity of 3.104.2.7 [place] .3.796345 Medica l .8 [place] 2020-10-27 2020-10-27 Telephone Chidimasa, 1.2.840.7 [id number] Methodi 00:00:00 00:00:[address] 3.430.2.7 Hospit a .3.036077 l .8 2020-10-24 2020-10-24 Telephone Rodas, 1.2.840.1 [id number] 2100 [id number] Methodi 00:00:00 00:00:[address] 3.430.2.7 Hospit a .3.942683 l .8 2020-10-22 2020-10-22 Outpatient R SELF, [facility] [id number] Univers 13:00:00 13:00:00 GADIEL rodas [facility] 2020-10-22 2020-10-22 Travel 1.2.840.1 1.2.215.430 9287 3839 Univers 00:00:00 00:00:00 67874.1.1 350.1.13.10 ity of 3.104.2.7 4.[place]7.3.698 [place] .3.896738 084.8 Medica l .8 Branch 2020-10-22 2020-10-22 Travel 1.2.840.1 1.2.054.513 9144 3839 Univers 00:00:00 00:00:00 71412.1.1 350.1.13.10 ity of 3.104.2.7 [place]7.3.698 [place] .3.677129 084.8 Medica l .8 Branch 2020-10-13 2020-10-13 Outpatient R SELF, [facility] [id number] Univers 08:45:00 08:45:00 GADIEL barbosa o f [facility] 2020-10-06 2020[facility]10[facility] [id number] Methodi 15:30:00 00:08:46 ne Ray 00851.1.[address] 3.430.2.7 Hospit a .3.026943 l .8 2020-09-30 2020-09-30 [facility], 1.2.840.5 [id number] Methodi 00:00:00 00:00:[address] 3.430.2.7 Hospit a .3.150828 l .8 2020-09-21 2020-09-21 Travel 1.2.840.1 1.2.596.396 7481 [id number] Methodi 00:00:00 00:00:[address] 3.430.2.7 0.2.7.3.698 Ho spita .3.941089 084.8 l .8 2020-09-06 2020-09-06 [facility] 1.2.840.1 [id number] 93649 Methodi 17:42:30 23:59:[address] 3.430.2.7 Hospit a .3.814588 l .8 2020-09-06 2020-09-06 [facility], 1.2.840.1 [id number] 2100 [id number] Methodi 16:50:00 17:41:00 Encounter Ray 93731.1.[address] 3.430.2.7 Hospit a .3.885063 l .8 2020-09-05 2020-09-05 [facility], 1.2.840.1 [id number] 2099 [id number] Methodi 09:17:00 19:45:00 Encounter Ray 43009.1.[address] 3.430.2.7 Hospit a .3.372970 l .8 2020-09-05 2020-09-05 Surgery [facility], 1.2.840.1 [id number] 88053 Methodi 11:30:00 13:15:[address] 3.430.2.7 Hospit a .3.634672 l .8 2020-09-05 2020-09-05 Anesthesia Remigio, 1.2.840.1 [id number] Methodi 11:27:00 12:20:00 Event Kirit 67064.1.1 [address] V. 3.430.2.7 Hospit a .3.521591 l .8 2020-09-05 2020-09-05 Travel 1.2.840.1 1.2.333.823 2797 756038 Methodi 00:00:00 00:00:[address] 3.430.2.7 0.2.7.3.698 Ho spita .3.010904 084.8 l .8 2020-09-04 2020-09-04 Telephone [place], 1.2.840.1 [id number] Methodi 00:00:00 00:00:00 Sarai Lieberman 23726.1.1 762 s t 3.430.2.7 Hospit a .3.337899 l .8 2020-09-02 2020-09-02 Telephone [place], 1.2.840.0 [id number] Methodi 00:00:00 00:00:00 Sarai CorbinChelsie 34725.1.1 344 s t 3.430.2.7 Hospit a .3.191059 l .8 2020-08-29 2020-08-30 Bedded [facility] [facility] [id number] [facility] 10:20:00 14:10:00 Outpatient r [place] 00 l [facility] 2020-08-29 2020-08-30 Outpatient HEMATPOUR, [facility] CAR 7500 [facility] 05:20:00 09:10:00 [place] 2020-08-06 2020-08-06 Office East, 1.2.840.9 [id number] Univers 08:03:23 09:17:49 Visit Santiago 08487.1.1 ity of 3.104.2.7 [place] .3.746410 Medica l .8 [place] 2020-08-06 2020-08-06 Outpatient R [facility] [id number] Univers 08:30:00 08:30:00 SANTIAGO barbosa of [facility] 2020-07-14 2020-07-14 Outpatient R SELF, [facility] [id number] Univers 09:30:00 09:30:00 GADIEL rodas [facility] 2020-07-14 2020-07-14 Travel 1.2.840.1 1.2.409.132 [id number] Univers 00:00:00 00:00:00 40802.1.1 350.1.13.10 ity of 3.104.2.7 [place].3.698 [place] .[place] 084.8 Medica l .8 [place] 2020-07-14 2020-07-14 Orders Doctor 1.2.840.7 [id number] Univers 00:00:00 00:00:00 Only Unassigned, 24583.1.1 ity of [place] 3.104.2.7 [place] .3.649814 Medica l .8 [place] 2020-06-16 2020-06-16 Outpatient R SELF, [facility] [id number] Univers 08:00:00 08:00:00 GADIEL rodas [facility] 2020-06-06 2020-06-06 Telephone Ronald, 1.2.840.0 [id number] Univers 00:00:00 00:00:00 Santiago 79527.1.1 ity of 3.104.2.7 [place] .3.469838 Medica l .8 [place] 2020-06-04 2020-06-04 Detasseler Santiago Cardenas 1.2.840.1 [id number] Univers 09:31:58 09:40:12 Visit [facility] 35619.1.1 ity of 3.104.2.7 [place] .3.656996 Medica l .8 [place] 2020-06-04 2020-06-04 Office JOSÉ ANTONIO Cardenas 1.2.113.440 [id number] Univers 08:13:41 09:28:25 Visit Santiago [facility] 350.1.13.10 i ty of CLINICS 4.2.7.2.686 Richi bach 334.8619758 [facility] 089 [place] 2020-06-04 2020-06-04 [facility] [id number] Univers 08:30:00 08:30:00 SANTIAGO ity of [facility] 2020-06-04 2020-06-04 Orders Doctor 1.2.840.4 [id number] Univers 00:00:00 00:00:00 Only Unassigned, 73448.1.1 ity of [place] 3.104.2.7 [place] .3.175482 Medica l .8 [place] 2020-05-19 2020-05-19 Telephone Ronald, 1.2.840.0 [id number] Univers 00:00:00 00:00:00 Santiago 57537.1.1 ity of 3.104.2.7 [place] .3.135016 Medica l .8 [place] 2020-04-24 2020-04-24 Telephone East, 1.2.840.3 [id number] Univers 00:00:00 00:00:00 [place] 83171.1.1 ity of 3.104.2.7 [place] .3.584946 Medica l .8 [place] 2020-04-14 2020-04-14 Outpatient R EAST, [facility] [id number] Univers 09:00:00 09:00:00 SANTIAGO ity [facility] [place] [facility] 2020-04-14 2020-04-14 Telephone East, 1.2.840.1 [id number] Univers 00:00:00 00:00:00 [place] 34320.1.1 ity of 3.104.2.7 [place] .3.968785 Medica l .8 [place] 2020-03-31 2020-03-31 Outpatient R EAST, [facility] [id number] Univers 08:30:00 08:30:00 SANTIAGO ity [facility] [place] [facility] 2020-03-03 2020-03-03 Outpatient R SELF, [facility] [id number] Univers 08:00:00 08:00:00 GADIEL barbosa o [facility] 2020-03-03 2020-03-03 Outpatient R SELF, [facility] [id number] Univers 08:00:00 08:00:00 GADIEL vogel f [facility] 2020-03-03 2020-03-03 Travel 1.2.840.1 1.2.675.286 [id number] Univers 00:00:00 00:00:00 88968.1.1 350.1.13.10 ity of 3.104.2.[place].3.698 [place] .3.4845[place] 084.8 Medica l .8 [place] 2020-02-06 2020-02-06 Telephone East, 1.2.840.9 [id number] Univers 00:00:00 00:00:00 [place] 35248.1.1 ity of 3.104.2.7 [place] .3.234469 Medica l .8 [place] 2020-01-26 2020-01-26 Emergency Caridad, 1.2.840.3 [id number] Univers 10:03:00 13:05:00 Cynise 53858.1.1 ity of 3.104.2.7 [place] .3.285899 Medica l .8 [place] 2020-01-26 2020-01-26 Travel 1.2.840.1 1.2.508.667 [id number] Univers 00:00:00 00:00:00 41334.1.1 350.1.13.10 ity of 3.104.2.7 4[place].3.698 [place] .3.2790[place] 084.8 Medica l .8 [place] 2020-01-25 2020-01-25 Outpatient R EAST, [facility] [id number] Univers 08:30:00 08:30:00 SANTIAGO ity of [facility] 2020-01-25 2020-01-25 Telemedici East, 1.2.840.3 [id number] Univers 07:36:49 08:06:49 ne Visit Santiago 99886.1.1 ity of 3.104.2.7 [place] .3.109554 Medica l .8 [place] 2020-01-16 2020-01-16 Outpatient R EAST, [facility] [id number] Univers 08:00:00 08:00:00 SANTIAGO ity [facility] [place] [facility] 2020-01-16 2020-01-16 Telephone East, 1.2.840.7 [id number] Univers 00:00:00 00:00:00 [place] 94177.1.1 ity of 3.104.2.7 [place] .3.222101 Medica l .8 [place] 2020-01-14 2020-01-14 Outpatient R SELF, [facility] [id number] Univers 08:00:00 08:00:00 GADIEL barbosa o f [facility] 2019-12-31 2019-12-31 Outpatient R SELF, [facility] [id number] Univers 08:45:00 08:45:00 GADIEL barbosa o f [facility] 2019-10-17 2019-10-17 Outpatient R EAST, [facility] [id number] Univers 08:30:00 08:30:00 SANTIAGO ity [facility] [place] [facility] 2019-10-12 2019-10-12 Outpatient R EAST, [facility] [id number] Univers 13:00:00 13:00:00 SANTIAGO ity [facility] [place] [facility] 2019-10-12 2019-10-12 Telemedici [place], 1.2.840.7 [id number] Univers 07:38:30 08:08:30 ne Visit Santiago 69666.1.1 ity of 3.104.2.7 [place] .3.189158 Medica l .8 [place] 2019-10-08 2019-10-08 Outpatient R [facility], [facility] [id number] Univers 10:15:00 10:15:00 GADIEL ity o f [facility] 2019-10-03 2019-10-03 Case Xiao, 1.2.840.4 [id number] Univers 00:00:00 00:00:00 Management Michael Corbin 50937.1.1 i ty of 3.104.2.7 [place] .3.675536 Medica l .8 [place] 2019-09-27 2019-09-27 Telephone East, 1.2.840.8 [id number] Univers 00:00:00 00:00:00 [place] 50471.1.1 ity of 3.104.2.7 [place] .3.277642 Medica l .8 [place] 2019-09-04 2019-09-04 Refill East, 1.2.840.7 [id number] Univers 00:00:00 00:00:00 [place] 40140.1.1 ity of 3.104.2.7 [place] .3.893962 Medica l .8 [place] 2019-07-24 2019-07-24 Outpatient R [facility] [id number] Univers 08:30:00 08:30:00 SANTIAGO ity [facility] [place] [facility] 2019-07-17 2019-07-17 Outpatient R [facility] [id number] Univers 10:00:00 10:00:00 SANTIAGO ity [facility] [place] [facility] 2019-06-15 2019-06-15 Telephone East, 1.2.840.5 [id number] Univers 00:00:00 00:00:00 [place] 10661.1.1 ity of 3.104.2.7 [place] .3.777264 Medica l .8 [place] 2019-06-13 2019-06-13 Telephone Team, [facility] 1.2.840.7 [id number] Univers 00:00:00 00:00:00 Health 48602.1.1 [place] .3.684784 Medica [place] .8 [place] 2019-05-10 2019-05-10 Refill Ronald, 1.2.840.2 [id number] Univers 00:00:00 00:00:00 [place] 66068.1.1 ity of 3.104.2.7 [place] .3.906924 Medica l .8 [place] 2019-05-09 2019-05-09 Refill Ronald, 1.2.840.4 [id number] Univers 00:00:00 00:00:00 [place] 56819.1.1 ity of 3.104.2.7 [place] .3.057356 Medica l .8 [place] 2019-04-30 2019-04-30 Outpatient R RODO, [facility] [id number] Univers 10:15:00 10:33:05 GADIEL barbosa o f [facility] 2019-04-18 2019-04-18 Detasseler [place] Cardenas 1.2.840.1 [id number] Univers 10:00:39 10:44:31 Visit [facility] 31610.1.1 ity of 3.104.2.7 [place] .3.675801 Medica l .8 [place] 2019-04-18 2019-04-18 Outpatient R RONALD [facility] [id number] Univers 10:00:00 10:44:31 SANTIAGO ity of [facility] 2019-04-18 2019-04-18 Office Ronald, 1.2.840.8 [id number] Univers 08:27:44 09:53:27 Visit Santiago 88538.1.1 ity of 3.104.2.7 [place] .3.538958 Medica l .8 [place] 2019-04-18 2019-04-18 Orders Doctor 1.2.840.0 [id number] Univers 00:00:00 00:00:00 Only Unassigned, 38166.1.1 ity of [place] 3.104.2.7 [place] .3.806487 Medica l .8 [place] 2019-04-11 2019-04-11 Refill Ronald, 1.2.840.3 [id number] Univers 00:00:00 00:00:00 [place] 50057.1.1 ity of 3.104.2.7 [place] .3.992930 Medica l .8 [place] 2019-04-09 2019-04-09 Refill Ronald, 1.2.840.3 [id number] Univers 00:00:00 00:00:00 [place] 02546.1.1 ity of 3.104.2.7 [place] .3.459472 Medica l .8 [place] 2019-04-03 2019-04-03 Telephone Team, [facility] 1.2.840.7 [id number] Univers 00:00:00 00:00:00 Health 03386.1.1 [place].2.[place] .3.408671 Medica [place] .8 [place] 2019-03-27 2019-03-27 Telephone Self, 1.2.840.5 [id number] Univers 00:00:00 00:00:00 Gadiel 75079.1.1 ity of 3.104.2.7 [place] .3.978214 Medica l .8 [place] 2019-01-17 2019-01-17 Office Ronald, 1.2.840.0 [id number] Univers 07:37:21 10:32:51 Visit Santiago 81652.1.1 ity of 3.104.2.7 [place] .3.904299 Medica l .8 [place] 2019-01-04 2019-01-12 Office Eveline Hansen 1.2.840.2 [id number] Univers 11:19:32 11:08:05 Visit Mariela 13428.1.1 ity of 3.104.2.7 [place] .3.167751 Medica l .8 Branch 2019-01-10 2019-01-10 Telephone Stanislav, 1.2.840.8 [id number] Univers 00:00:00 00:00:00 Eladio Inman 61220.1.1 ity of 3.104.2.7 [place] .3.973628 Medica l .8 [place] 2018-12-18 2018-12-18 Office Geraldine, 1.2.840.7 [id number] Univers 08:48:45 09:13:43 Visit Leyda 36882.1.1 it y of 3.104.2.7 [place] .3.922587 Medica l .8 [place] 2018-10-30 2018-10-30 Telephone East, 1.2.840.2 [id number] Univers 00:00:00 00:00:00 [place] 56119.1.1 ity of 3.104.2.7 [place] .3.473889 Medica l .8 [place] 2018-10-23 2018-10-23 Orders Doctor 1.2.840.9 [id number] Univers 00:00:00 00:00:00 Only Unassigned, 35069.1.1 ity of [place] 3.104.2.7 [place] .3.097685 Medica l .8 [place] 2018-10-23 2018-10-23 Nurse Selvin, 1.2.840.1 [id number] Univers 00:00:00 00:00:00 Triage Stefanie 79850.1.1 ity of 3.104.2.7 [place] .3.247991 Medica l .8 [place] 2018-10-23 2018-10-23 Telephone Self, 1.2.840.2 [id number] Univers 00:00:00 00:00:00 Gadiel 84607.1.1 ity of 3.104.2.7 [place] .3.939854 Medica l .8 [place] 2018-10-20 2018-10-20 Telephone Self, 1.2.840.1 [id number] Univers 00:00:00 00:00:00 Gadiel 52059.1.1 ity of 3.104.2.7 [place] .3.127876 Medica l .8 [place] Results Test Description Test Time Test Comments Results Result Comments Source C-Reactive Protein 2023-03-17 15:55:44 Test Item Value Reference Range Interpretation Comme nts CRP (test code = 2401213017) 0.3 mg/dL <=0.8 Lab Interpretation (test code = 86430-2) [facility] [id number] 15:23:48 Test Item Value Reference Range Interpretation Comments HGB A1C (test code = 5.3 % 4.0-5.7 4548-4) KYLE (test code = KYLE) Reference RangesNormal: <5.7%Prediabetes: 5.7 - 6.4%Diabetes: > 6.5% Lab Interpretation (test Normal code = 00970-4) [facility] [id number] 13:38:20 Test Item Value Reference Range Interpretation Comments IRON (test code = 54 ug/dL 50-160 Slight hem olysis 9535429940) TIBC (test code = 430 ug/dL 250-410 H 0848511704) % FE SAT (test code = 13 % 20-50 L 2133899504) Lab Interpretation (test Abnormal code = 16110-1) [facility] [id number] 12:04:28 Test Item Value Reference Range Interpretation Comments FREE T3 (test code = 6939262336) 6.12 pg/mL 2.77-5.27 H Lab Interpretation (test code = Abnormal 93427-0) [facility] [id number] 12:04:28 Test Item Value Reference Range Interpretation Comments FREE T4 (test code = 1.67 See_Comment [Autom ated message] 6620239896) The system [employer] generated this result transmitted ref erence range: 0.78 - 2 .20 ng/dL:. The ref erence range was not u sed to interpret this result as normal/abnor mal. Lab Interpretation (test Normal code = 19303-8) [facility]2023-10-26 09:29:44 Test Item Value Reference Range Interpretation Comments MAGNESIUM (test code = 9275221743) 2.1 mg/dL 1.7-2.4 Lab Interpretation (test code = Normal 99611-3) [facility] (NA, K, CL, CO2, GLUCOSE, BUN, CREATININE, CA)2023-03-17 09:29:43 Test Item Value Reference Range Interpretation Comments NA (test code = 137 mmol/L 135-145 1591942484) K (test code = 3.5 mmol/L 3.5-5.0 Slight 6535492097) hemolysis CL (test code = 103 mmol/L 98-108 7309634245) CO2 TOTAL (test code 25 mmol/L 23-31 = 3246883636) AGAP (test code = 9 2-16 6935555284) BUN (test code = 29 mg/dL 7-23 H Slight 8287033877) hemolysis GLUCOSE (test code = 138 mg/dL 70-110 H 6492358014) CREATININE (test code 1.16 mg/dL 0.50-1.04 H = 4359417987) CALCIUM (test code = 8.5 mg/dL 8.6-10.6 L 3448825654) eGFR (test code = 46.6 mL/min/1.73m2 5016517118) KYLE (test code = KYLE) Association of [...] tests). Lab Interpretation Abnormal (test code = 85382-7) [facility] Center[facility]yroid Stimulating Hormone (TSH)2023-03-17 07:17:33 Test Item Value Reference Range Interpretation Comments TSH (test code = 7.55 See_Comment H [Automated message] 1066828133) The system [employer] generated this result transmitted ref erence range: 0.45 - 4 .70 mIU/L. The refe rence range was not u sed to interpret this result as normal/abnor mal. Lab Interpretation (test Abnormal code = 73598-2) [facility] CenterSedimentation [id number] 06:57:22 Test Item Value Reference Range Interpretation Comments ESR (test code = 42745-5) 26 See_Comment [ Automated message] The system [employer] generated this result transmitted ref erence range: 2 - 30 m m/HR. The reference r abbey was not used to interpret this result as normal/abnor mal. Lab Interpretation (test Normal code = 51950-3) [facility] CenterD[facility] Panel 3 [id number] 06:49:37 Test Item Value Reference Range Interpretation Comments ESTELA S (test code = Negative Negative 1506344348) BENZO S (test code = Negative Negative 6146332024) TRICYCLIC (test code = Negative Negative 9070973949) KYLE (test code = KYLE) Serum Drug Screen Cutoff Ranges Barbiturates ? ? - 3 mcg/mLBenzodiazepines ?- 50 ng/mLTCA ?- 300 ng/mL Test developed and characteristics determined by [facility] [[email or web address]] Laboratory Services. The results are to be used only for medical (i.e., treatment) purposes. Unconfirmed screening results must not be used for non-medical purposes (e.g., employment testing, legal testing). Lab Interpretation Normal (test code = 02984-7) [facility] (Total Cholesterol, Triglycerides, HDL)2023-03-17 06:31:58 Test Item Value Reference Range Interpretation Comments CHOL (test code = 9259130749) 178 mg/dL 120-200 HDL (test code = 1780037301) 56 mg/dL >=50 HDLC RATIO (test code = 7892596244) 3.2 <=4.5 TRIG (test code = 4931176525) 101 mg/dL 30-170 LDL CHOL (test code = 36553-4) 102 mg/dL <=160 VLDL (test code = 2122259658) 20 mg/dL 5-60 Lab Interpretation (test code = Normal 55596-0) [facility] [id number] 03:11:49 Test Item Value Reference Range Interpretation Comments TROPONIN I (test code = 0.008 ng/mL <=0.034 2509691417) KYLE (test code = KYLE) Reference (Normal) [...] biotin. Lab Interpretation Normal (test code = 17327-9) [facility] [id number] 21:39:24 Test Item Value Reference Range Interpretation Comments TROPONIN I (test code = 0.007 ng/mL <=0.034 0425822212) KYLE (test code = KYLE) Reference (Normal) [...] biotin. Lab Interpretation Normal (test code = 10937-1) [facility] Center[facility]AL [id number] 21:39:24 Test Item Value Reference Range Interpretation Comments NT-proBNP (test code = 3900 pg/mL <=125 H 87303-7) KYLE (test code = KYLE) Positive: Heart Failure Likely Lab Interpretation (test Abnormal code = 68508-1) [facility] CenterD-[id number] 21:31:22 Test Item Value Reference Interpretation Comments Range D-DIMER (test code = 0.31 See_Comment [Autom ated 5110334442) message] The system which generated this result [...] diagnosis. Lab Interpretation Normal (test code = 91218-4) [facility]OL[facility] PANEL (62519)2023-03-16 21:27:24 Test Item Value Reference Range Interpretation Comments NA (test code = 138 mmol/L 135-145 7512225077) K (test code = 3.8 mmol/L 3.5-5.0 1923887708) CL (test code = 103 mmol/L 98-108 4447980556) CO2 TOTAL (test code = 28 mmol/L 23-31 4982378053) AGAP (test code = 7 2-16 7885432237) BUN (test code = 26 mg/dL 7-23 H 8805922366) GLUCOSE (test code = 88 mg/dL 70-110 0759384946) CREATININE (test code = 0.97 mg/dL 0.50-1.04 6191340805) TOTAL BILI (test code = 0.7 mg/dL 0.1-1.7 3129623552) CALCIUM (test code = 8.7 mg/dL 8.6-10.6 6274707407) T PROTEIN (test code = 7.1 g/dL 6.3-8.2 2979643074) ALBUMIN (test code = 4.2 g/dL 3.5-5.0 9765558329) ALK PHOS (test code = 87 U/L 34-122 5322723707) ALTv (test code = 15 U/L 5-35 1742-6) AST(SGOT) (test code = 33 U/L 13-40 5568844810) eGFR (test code = 57.3 mL/min/1.73m2 4251607167) KYLE (test code = KYLE) Association of [...] tests). Lab Interpretation Abnormal (test code = 07931-6) [facility] WITH [id number] 21:07:01 Test Item Value Reference Range Interpretation Comments WBC (test code = 4.10 See_Comment L [Automated 6690-2) message] The sy stem which generated this result transmitted reference range : 4.30 - 11.10 10*3/?L. The reference range was not used to interpret this result as normal/abnormal . RBC (test code = 4.40 See_Comment [Automated 789-8) message] The sy stem [...] RDW-SD (test code = 49.2 fL 39.0-49.9 78717-8) RDW-CV (test code = 16.1 % 12.0-15.5 H 788-0) PLT (test code = 111 See_Comment L [Automated 777-3) message] The sy stem which generated this result transmitted reference range : 166 - 358 10*3/ ?L. The reference r abbey was not used to interpret this result as normal/abnormal . MPV (test code = 8.9 fL 9.5-12.9 L 90260-2) NRBC/100 WBC (test 0.0 See_Comment [Automat ed code = 1712392866) message] The system which generated this result transmitted reference range : 0.0 - 10.0 /100 WBCs. The refer ence range was not u sed to interpret th is result as normal/abnormal . NRBC x10^3 (test code See_Comment [Auto mated = 6575036065) message] The s ystem which generated this result transmitted reference range : 10*3/?L. The reference range was not used to interpret this result as normal/abnormal . GRAN MAT (NEUT) % 62.2 % (test code = 770-8) IMM GRAN % (test code 1.20 % = 6734670598) LYMPH % (test code = 21.0 % 736-9) MONO % (test code = 10.0 % 5905-5) EOS % (test code = 5.1 % 713-8) BASO % (test code = 0.5 % 706-2) GRAN MAT x10^3(ANC) 2.55 10*3/uL 1.88-7.09 (test code = 2188328306) IMM GRAN x10^3 (test 0.05 10*3/uL 0.00-0.06 code = 7611699447) LYMPH x10^3 (test code 0.86 10*3/uL 1.32-3.29 L = 731-0) MONO x10^3 (test code 0.41 10*3/uL 0.33-0.92 = 742-7) EOS x10^3 (test code = 0.21 10*3/uL 0.03-0.39 711-2) BASO x10^3 (test code 0.01-0.07 = 704-7) Lab Interpretation Abnormal (test code = 36997-8) [facility] WITH [id number] 19:35:25 Test Item Value Reference Range Interpretation Comments WBC (test code = 4.36 See_Comment [Automated 6690-2) message] The sy stem which generated this result transmitted reference range : 4.30 - 11.10 10*3/?L. The reference range was not used to interpret this result as normal/abnormal . RBC (test code = 3.83 See_Comment L [Automated 609-8) message] The sy [...] (test code = 50.1 fL 39.0-49.9 H 74317-0) RDW-CV (test code = 15.7 % 12.0-15.5 H 788-0) PLT (test code = 112 See_Comment L [Automated 777-3) message] The sy stem which generated this result transmitted reference range : 166 - 358 10*3/ ?L. The reference r abbey was not used to interpret this result as normal/abnormal . MPV (test code = 9.7 fL 9.5-12.9 14803-1) NRBC/100 WBC (test 0.0 See_Comment [Automat ed code = 4445416414) message] The system which generated this result transmitted reference range : 0.0 - 10.0 /100 WBCs. The refer ence range was not u sed to interpret th is result as normal/abnormal . NRBC x10^3 (test code See_Comment [Auto mated = 9828277806) message] The s ystem which generated this result transmitted reference range : 10*3/?L. The reference range was not used to interpret this result as normal/abnormal . GRAN MAT (NEUT) % 72.1 % (test code = 770-8) IMM GRAN % (test code 0.20 % = 9355503354) LYMPH % (test code = 16.1 % 736-9) MONO % (test code = 10.3 % 5905-5) EOS % (test code = 1.1 % 713-8) BASO % (test code = 0.2 % 706-2) GRAN MAT x10^3(ANC) 3.14 10*3/uL 1.88-7.09 (test code = 0279493014) IMM GRAN x10^3 (test 0.00-0.06 code = 4308227974) LYMPH x10^3 (test code 0.70 10*3/uL 1.32-3.29 L = 731-0) MONO x10^3 (test code 0.45 10*3/uL 0.33-0.92 = 742-7) EOS x10^3 (test code = 0.05 10*3/uL 0.03-0.39 711-2) BASO x10^3 (test code 0.01-0.07 = 704-7) Lab Interpretation Abnormal (test code = 68057-6) [facility] (03752)2022-05-06 22:42:55 Test Item Value Reference Range Interpretation Comments NA (test code = 137 mmol/L 135-145 5282892069) K (test code = 3.2 mmol/L 3.5-5.0 L 0966175214) CL (test code = 100 mmol/L 98-108 3758786735) CO2 TOTAL (test code = 23 mmol/L 23-31 8622815195) AGAP (test code = 2-16 4119389985) BUN (test code = 41 mg/dL 7-23 H 7015026058) GLUCOSE (test code = 98 mg/dL 70-110 4919511077) CREATININE (test code = 1.55 mg/dL 0.50-1.04 H 3088005130) TOTAL BILI (test code = 0.8 mg/dL 0.1-1.9 5165967421) CALCIUM (test code = 8.3 mg/dL 8.6-10.6 L 4052371039) T PROTEIN (test code = 6.9 g/dL 6.3-8.2 4971841831) ALBUMIN (test code = 3.9 g/dL 3.5-5.0 9975443779) ALK PHOS (test code = 89 U/L 34-122 6293625056) ALTv (test code = 101 U/L 5-35 H 1742-6) AST(SGOT) (test code = 203 U/L 13-40 H 6973373660) eGFR (test code = mL/min/1.73m2 5776097270) KYLE (test code = KYLE) Association of [...] tests). Lab Interpretation Abnormal (test code = 73505-3) [facility] WITH [id number] 22:33:52 Test Item Value Reference Range Interpretation Comments WBC (test code = See_Comment L [Automated 1690-2) message] The sy stem which generated this result transmitted reference range : 4.30 - 11.10 10*3/?L. The reference range was not used to interpret this result as normal/abnormal . RBC (test code = See_Comment [Automated 959-8) message] The sy stem which [...] RDW-SD (test code = 46.3 fL 39.0-49.9 85797-4) RDW-CV (test code = 13.5 % 12.0-15.5 788-0) PLT (test code = See_Comment L [Automated 777-3) message] The sy stem which generated this result transmitted reference range : 166 - 358 10*3/ ?L. The reference r abbey was not used to interpret this result as normal/abnormal . MPV (test code = 9.5 fL 9.5-12.9 03722-2) NRBC/100 WBC (test See_Comment [Automat ed code = [id number]) message] The system which generated this result transmitted reference range : 0.0 - 10.0 /100 WBCs. The refer ence range was not u sed to interpret th is result as normal/abnormal . NRBC x10^3 (test code See_Comment [Auto mated = [id number]) message] The s ystem which generated this result transmitted reference range : 10*3/?L. The reference range was not used to interpret this result as normal/abnormal . GRAN MAT (NEUT) % 58.3 % (test code = 770-8) IMM GRAN % (test code 0.80 % = [id number]) LYMPH % (test code = 28.1 % 736-9) MONO % (test code = 12.0 % 5905-5) EOS % (test code = 0.5 % 713-8) BASO % (test code = 0.3 % 706-2) GRAN MAT x10^3(ANC) 2.29 10*3/uL 1.88-7.09 (test code = 3718133521) IMM GRAN x10^3 (test 0.03 10*3/uL 0.00-0.06 code = [id number]) LYMPH x10^3 (test code 1.10 10*3/uL 1.32-3.29 L = 731-0) MONO x10^3 (test code 0.47 10*3/uL 0.33-0.92 = 742-7) EOS x10^3 (test code = 0.03-0.39 L 711-2) BASO x10^3 (test code 0.01-0.07 = 704-7) Lab Interpretation Abnormal (test code = 38755-6) [facility] METABOLIC PANEL (NA, K, CL, CO2, GLUCOSE, BUN, CREATININE, [place])2022-04-22 21:43:42 Test Item Value Reference Range Interpretation Comments NA (test code = 142 mmol/L 135-145 8632835869) K (test code = 3.5 mmol/L 3.5-5.0 9984565891) CL (test code = 106 mmol/L 98-108 5381478065) CO2 TOTAL (test code = 26 mmol/L 23-31 1169205973) AGAP (test code = 2-16 0137333221) BUN (test code = 29 mg/dL 7-23 H 8151531784) GLUCOSE (test code = 84 mg/dL 70-110 2508990734) CREATININE (test code = 1.16 mg/dL 0.50-1.04 H 6040892479) CALCIUM (test code = 8.2 mg/dL 8.6-10.6 L 8811328702) eGFR (test code = mL/min/1.73m2 9432796100) KYLE (test code = KYLE) Association of [...] tests). Lab Interpretation Abnormal (test code = 30894-4) [facility] WITH [id number] 21:33:01 Test Item Value Reference Range Interpretation [...] (test code = 50.7 fL 39.0-49.9 H 28303-1) RDW-CV (test code = 14.6 % 12.0-15.5 788-0) PLT (test code = See_Comment L [Automated 777-3) message] The sy stem which generated this result transmitted reference range : 166 - 358 10*3/ ?L. The reference r abbey was not used to interpret this result as normal/abnormal . MPV (test code = 8.8 fL 9.5-12.9 L 85895-4) NRBC/100 WBC (test See_Comment [Automat ed code = 2634030217) message] The system which generated this result transmitted reference range : 0.0 - 10.0 /100 WBCs. The refer ence range was not u sed to interpret th is result as normal/abnormal . NRBC x10^3 (test code See_Comment [Auto mated = 1740354050) message] The s ystem which generated this result transmitted reference range : 10*3/?L. The reference range was not used to interpret this result as normal/abnormal . GRAN MAT (NEUT) % 70.9 % (test code = 770-8) IMM GRAN % (test code 0.50 % = 3095254191) LYMPH % (test code = 17.4 % 736-9) MONO % (test code = 9.0 % 5905-5) EOS % (test code = 1.7 % 713-8) BASO % (test code = 0.5 % 706-2) GRAN MAT x10^3(ANC) 4.60 10*3/uL 1.88-7.09 (test code = 3831090530) IMM GRAN x10^3 (test 0.03 10*3/uL 0.00-0.06 code = 8963517696) LYMPH x10^3 (test code 1.13 10*3/uL 1.32-3.29 L = 731-0) MONO x10^3 (test code 0.58 10*3/uL 0.33-0.92 = 742-7) EOS x10^3 (test code = 0.11 10*3/uL 0.03-0.39 711-2) BASO x10^3 (test code 0.03 10*3/uL 0.01-0.07 = 704-7) Lab Interpretation Abnormal (test code = 63806-0) [id number] 06:01:07 Test Item Value Reference Range Interpretation Comments Blood Culture-Aerobic No organisms No growth Previo us (test code = 08665-5) isolated prelim inary verified result was Culture [...] Culture-Anaerobic isolated preliminar y (test code = 05584-3) verifi ed result was Culture In Progress [...] CDT Lab Interpretation Normal (test code = 87237-1) [facility] CULTURE [id number] 06:01:07 Test Item Value Reference Range Interpretation Comments Blood Culture-Aerobic No organisms No growth Previo us (test code = 96790-8) isolated prelim inary verified result was Culture [...] Culture-Anaerobic isolated preliminar y (test code = 61482-5) verifi ed result was Culture In Progress [...] CDT Lab Interpretation Normal (test code = 95427-5) [facility] CULTURE [id number] 06:01:07 Test Item Value Reference Range Interpretation Comments Blood Culture-Aerobic No organisms No growth Previo us (test code = 46914-9) isolated prelim inary verified result was Culture [...] Culture-Anaerobic isolated preliminar y (test code = 26482-1) verifi ed result was Culture In Progress [...] CDT Lab Interpretation Normal (test code = 85736-5) [facility] [id number] 10:49:10 Test Item Value Reference Range Interpretation Comments NT-proBNP (test code 2660 pg/mL See_Comment H [Autom ated = 0703544433) message] The system which generated this result transmitted reference range : <=125. The reference range was not used to interpret this result as normal/abnormal . KYLE (test code = KYEL) Biotin has been reported to cause a negative bias, interpret results relative to patient's use of biotin. Lab Interpretation Abnormal (test code = 47393-8) [facility]-TERMINAL [id number] 10:49:10 Test Item Value Reference Range Interpretation Comments NT-proBNP (test code 2660 pg/mL See_Comment H [Autom ated = 4147393637) message] The system which generated this result transmitted reference range : <=125. The reference range was not used to interpret this result as normal/abnormal . KYLE (test code = KYLE) Biotin has been reported to cause a negative bias, interpret results relative to patient's use of biotin. Lab Interpretation Abnormal (test code = 76341-3) [facility] (NA, K, CL, CO2, GLUCOSE, BUN, CREATININE, [place])2022-02-15 10:44:07 Test Item Value Reference Range Interpretation Comments NA (test code = 134 mmol/L 135-145 L 4386785178) K (test code = 3.2 mmol/L 3.5-5 L 3630239079) CL (test code = 98 mmol/L 98-108 4192380222) CO2 TOTAL (test code = 27 mmol/L 23-31 4037890664) AGAP (test code = 2-16 2229235903) BUN (test code = 19 mg/dL 7-23 6289739459) GLUCOSE (test code = 102 mg/dL 70-110 9809607407) CREATININE (test code = 0.95 mg/dL 0.5-1.04 5221176432) CALCIUM (test code = 8.5 mg/dL 8.6-10.6 L 9635805100) eGFR (test code = mL/min/1.73m2 1499204643) KYLE (test code = KYLE) Association of [...] tests). Lab Interpretation Abnormal (test code = 44535-8) [facility]2022-09-26 10:44:07 Test Item Value Reference Range Interpretation Comments MAGNESIUM (test code = 3273764231) 1.8 mg/dL 1.7-2.4 Lab Interpretation (test code = Normal 78992-5) [facility]2022-09-26 10:44:07 Test Item Value Reference Range Interpretation Comments MAGNESIUM (test code = 1910613339) 1.8 mg/dL 1.7-2.4 Lab Interpretation (test code = Normal 91123-4) [facility] (NA, K, CL, CO2, GLUCOSE, BUN, CREATININE, [place])2022-02-15 10:44:07 Test Item Value Reference Range Interpretation Comments NA (test code = 134 mmol/L 135-145 L 2825105082) K (test code = 3.2 mmol/L 3.5-5.0 L 3702462902) CL (test code = 98 mmol/L 98-108 6496669249) CO2 TOTAL (test code = 27 mmol/L 23-31 8269792237) AGAP (test code = 2-16 9613631689) BUN (test code = 19 mg/dL 7-23 8590302842) GLUCOSE (test code = 102 mg/dL 70-110 0291900321) CREATININE (test code = 0.95 mg/dL 0.50-1.04 9886120206) CALCIUM (test code = 8.5 mg/dL 8.6-10.6 L 7595099388) eGFR (test code = mL/min/1.73m2 1054338529) KYLE (test code = KYLE) Association of [...] tests). Lab Interpretation Abnormal (test code = 40531-7) [facility] WITH [id number] 10:12:06 Test Item Value Reference Range Interpretation [...] RDW-SD (test code = 47.8 fL 39-49.9 46073-3) RDW-CV (test code = 15.2 % 12-15.5 788-0) PLT (test code = See_Comment L [Automated 777-3) message] The sy stem which generated this result transmitted reference range : 166 - 358 10*3/ ?L. The reference r abbey was not used to interpret this result as normal/abnormal . MPV (test code = 8.9 fL 9.5-12.9 L 03275-0) NRBC/100 WBC (test See_Comment [Automat ed code = 6178667311) message] The system which generated this result transmitted reference range : 0.0 - 10.0 /100 WBCs. The refer ence range was not u sed to interpret th is result as normal/abnormal . NRBC x10^3 (test code See_Comment [Auto mated = 6771470858) message] The s ystem which generated this result transmitted reference range : 10*3/?L. The reference range was not used to interpret this result as normal/abnormal . GRAN MAT (NEUT) % 65.9 % (test code = 770-8) IMM GRAN % (test code 0.30 % = 6830470206) LYMPH % (test code = 21.0 % 736-9) MONO % (test code = 10.1 % 5905-5) EOS % (test code = 2.4 % 713-8) BASO % (test code = 0.3 % 706-2) GRAN MAT x10^3(ANC) 2.49 10*3/uL 1.88-7.09 (test code = 6919745125) IMM GRAN x10^3 (test 0-0.06 code = 8045825242) LYMPH x10^3 (test code 0.79 10*3/uL 1.32-3.29 L = 731-0) MONO x10^3 (test code 0.38 10*3/uL 0.33-0.92 = 742-7) EOS x10^3 (test code = 0.09 10*3/uL 0.03-0.39 711-2) BASO x10^3 (test code 0.01-0.07 = 704-7) Lab Interpretation Abnormal (test code = 47487-7) [facility] WITH [id number] 10:12:06 Test Item Value Reference Range Interpretation [...] RDW-SD (test code = 47.8 fL 39.0-49.9 66018-8) RDW-CV (test code = 15.2 % 12.0-15.5 788-0) PLT (test code = See_Comment L [Automated 777-3) message] The sy stem which generated this result transmitted reference range : 166 - 358 10*3/ ?L. The reference r abbey was not used to interpret this result as normal/abnormal . MPV (test code = 8.9 fL 9.5-12.9 L 00258-5) NRBC/100 WBC (test See_Comment [Automat ed code = 7154314234) message] The system which generated this result transmitted reference range : 0.0 - 10.0 /100 WBCs. The refer ence range was not u sed to interpret th is result as normal/abnormal . NRBC x10^3 (test code See_Comment [Auto mated = 3180038605) message] The s ystem which generated this result transmitted reference range : 10*3/?L. The reference range was not used to interpret this result as normal/abnormal . GRAN MAT (NEUT) % 65.9 % (test code = 770-8) IMM GRAN % (test code 0.30 % = 0522530087) LYMPH % (test code = 21.0 % 736-9) MONO % (test code = 10.1 % 5905-5) EOS % (test code = 2.4 % 713-8) BASO % (test code = 0.3 % 706-2) GRAN MAT x10^3(ANC) 2.49 10*3/uL 1.88-7.09 (test code = 1555438463) IMM GRAN x10^3 (test 0.00-0.06 code = 3191460962) LYMPH x10^3 (test code 0.79 10*3/uL 1.32-3.29 L = 731-0) MONO x10^3 (test code 0.38 10*3/uL 0.33-0.92 = 742-7) EOS x10^3 (test code = 0.09 10*3/uL 0.03-0.39 711-2) BASO x10^3 (test code 0.01-0.07 = 704-7) Lab Interpretation Abnormal (test code = 49917-0) [facility] WITH [id number] 11:18:28 Test Item Value Reference Range Interpretation [...] RDW-SD (test code = 49.5 fL 39-49.9 52656-9) RDW-CV (test code = 15.5 % 12-15.5 788-0) PLT (test code = See_Comment L [Automated 777-3) message] The sy stem which generated this result transmitted reference range : 166 - 358 10*3/ ?L. The reference r abbey was not used to interpret this result as normal/abnormal . MPV (test code = 11.4 fL 9.5-12.9 11026-4) IPF % (test code = 8.7 % 1.3-7.7 H Platelet count 1570383192) measured by fluorescence method. NRBC/100 WBC (test See_Comment [Automat ed code = 1587139839) message] The system which generated this result transmitted reference range : 0.0 - 10.0 /100 WBCs. The refer ence range was not u sed to interpret th is result as normal/abnormal . NRBC x10^3 (test code See_Comment [Auto mated = 5210392121) message] The s ystem which generated this result transmitted reference range : 10*3/?L. The reference range was not used to interpret this result as normal/abnormal . GRAN MAT (NEUT) % 62.0 % (test code = 770-8) IMM GRAN % (test code 0.80 % = 6169383200) LYMPH % (test code = 22.2 % 736-9) MONO % (test code = 9.6 % 5905-5) EOS % (test code = 5.1 % 713-8) BASO % (test code = 0.3 % 706-2) GRAN MAT x10^3(ANC) 2.21 10*3/uL 1.88-7.09 (test code = 9492333809) IMM GRAN x10^3 (test 0.03 10*3/uL 0-0.06 code = 5998747503) LYMPH x10^3 (test code 0.79 10*3/uL 1.32-3.29 L = 731-0) MONO x10^3 (test code 0.34 10*3/uL 0.33-0.92 = 742-7) EOS x10^3 (test code = 0.18 10*3/uL 0.03-0.39 711-2) BASO x10^3 (test code 0.01-0.07 = 704-7) POLYCHROMASIA (test 2+ See_Comment [Automa arpit code = 28822-2) message] The system which generated this result [...] . Lab Interpretation Abnormal (test code = 86314-3) [facility] METABOLIC PANEL (NA, K, CL, CO2, GLUCOSE, BUN, CREATININE, [place])2022-02-13 10:39:07 Test Item Value Reference Range Interpretation Comments NA (test code = 136 mmol/L 135-145 6551399600) K (test code = 4.1 mmol/L 3.5-5 9943052210) CL (test code = 102 mmol/L 98-108 2310622128) CO2 TOTAL (test code = 27 mmol/L 23-31 5781102240) AGAP (test code = 2-16 3178229698) BUN (test code = 22 mg/dL 7-23 1763217199) GLUCOSE (test code = 94 mg/dL 70-110 9603388958) CREATININE (test code = 0.94 mg/dL 0.5-1.04 4212820333) CALCIUM (test code = 8.1 mg/dL 8.6-10.6 L 1859443981) eGFR (test code = mL/min/1.73m2 3762910149) KYLE (test code = KYLE) Association of [...] tests). Lab Interpretation Abnormal (test code = 89861-5) [facility] 01:50:10 Test Item Value Reference Range Interpretation Comments Height (test code = in 8395974109) Weight (test code = lbs 8226335039) Systolic BP (test code mmHg = 1631416903) Diastolic BP (test code mmHg = 0836510337) Heart Rate (test code = bpm 0935854342) BSA (test code = 1.85 m2 6914550742) IVS (test code = 1.22 cm 0377364641) Interventricular Septum 1.22 cm Diastolic Thickness by 2D (test code = 1322832) LVIDD (test code = 5.00 cm 9454087125) Left Ventricular End 117.9 mL Diastolic Volume by Teichholz Method (test code = 3327338) LVPWD (test code = 1.22 cm 7758797395) PW (test code = 1.22 cm 0.6-1.3 9737165039) EF(Teich) (test code = 74.60 % 7589508112) LVIDS (test code = 2.80 cm 7040111687) Left Ventricular End 29.9 mL Systolic Volume by Teichholz Method (test code = 9927952) FS (test code = 44 % 1353747585) EF - 2D (test code = 74.60 % 75757616) LVOT diameter (test 2.16 cm code = 2620329069) LVOT area (test code = 3.70 cm2 0808877402) Ao root diam (test code 3.40 cm = 6896794613) Aortic root (test code 3.4 cm = 2581355309) Ao root annulus (test 3.4 cm code = 3674441116) LA size (test code = 3.4 cm 4369942025) TR Peak Spencer (test code 330.0 cm/s = 9731173283) Triscuspid Valve mmHg Regurgitation Peak Gradient (test code = 4056972482) PV REGURGITATION PEAK mmHg GRADIENT (test code = 9115480689) PI dec slope (test code 137.20 cm/s2 = 9947743686) LAV(MOD-sp4) (test code 102.90 mL = 2682178509) MV Peak E Spencer (test 84.1 cm/s code = 6671099429) MV Peak A Spencer (test 40.1 cm/s code = 2003432988) E/A ratio (test code = ratio 0260292245) MV valve area p 1/2 3.70 cm2 method (test code = 2572308921) MV dec slope (test code 413.00 cm/s2 = 9627328290) MV P1/2t max spencer (test 83.70 cm/s code = 9255641173) MV Prop V (test code = 41.80 cm/s 4037546177) Tapse (test code = 1.83 cm 8635044057) LVOT stroke volume 96.90 cm3 (test code = 2983260120) LVOT peak spencer (test 125.5 cm/s code = 1804587667) LVOT mn grad (test code mmHg = 9226484394) AV LVOT peak gradient mmHg (test code = 4006093052) LVOT peak VTI (test 26.4 cm code = 7606146740) LV V1 mean (test code = 78.10 cm/s 0136881995) Aortic valve mean 103.7 cm/s velocity (test code = 6309754506) Ao peak spencer (test code 165.6 cm/s = 6800453376) Ao VTI (test code = 37.2 cm 1593749969) AV area by cont VTI 2.6 cm2 (test code = 7912371013) AV area peak spencer (test 2.8 cm2 code = 0280621906) Ao max PG (test code = 11.00 mm[Hg] 0849762857) AV peak gradient (test mmHg code = 6905028979) AV valve area (test 2.60 cm2 code = 5016992027) AV mean gradient (test mmHg code = 3715334871) LA Volume Index (BP) 55.2 mL/m2 (test code = 8946828785) LA volume (BP) (test 102.1 mL code = 8817269040) LAV(MOD-sp2) (test code 86.10 mL = 1052618602) A2C EF (test code = 61.20 % 1018811372) EF(sp2-el) (test code = 61.60 % 5893797976) SV(MOD-sp2) (test code 47.10 mL = 5705351758) LV Diastolic Volume 70.7 mL (BP) (test code = 7506604941) A4C EF (test code = 53.00 % 3681851567) EF(MOD-bp) (test code = 56.70 % 9633775104) EF(sp4-el) (test code = 53.90 % 5934626517) LV Systolic Volume (BP) 30.6 mL (test code = 6998087030) SV(MOD-bp) (test code = 40.10 mL 8893894557) SV(MOD-sp4) (test code 32.40 mL = 3540827052) SV(sp4-el) (test code = 33.10 mL 5124423055) EF (test code = 2219468380) Left Ventricular Stroke 40.1 mL Volume by 2-D Biplane-MOD (test code = 4344183) LV Diastolic Volume 38.2 mL/m2 Index (BP) (test code = 0832437887) LV Systolic Volume 16.5 mL/m2 Index (BP) (test code = 2285384820) Radiology Study observation (narrative) (test code = 72248-7) KYLE (test code = KYLE) ?Left?Ventricle: Left [...] 1.00The left ventricular wall motion is normal. [id number] 05:45[facility]01 Test Item Value Reference Interpretation Comments Range TROPONIN I (test See_Comment [Automated code = 7850955181) message] The system which generated this result [...] biotin. Lab Interpretation Normal (test code = 51721-7) [facility] [id number] 05:41:40 Test Item Value Reference Range Interpretation Comments NT-proBNP (test code 4250 pg/mL See_Comment H [Autom ated = 3261374572) message] The system which generated this result transmitted reference range : <=125. The reference range was not used to interpret this result as normal/abnormal . KYLE (test code = KYLE) Biotin has been reported to cause a negative bias, interpret results relative to patient's use of biotin. Lab Interpretation Abnormal (test code = 12819-4) [facility] [id number] 05:35:21 Test Item Value Reference Range Interpretation Comments APTT Patient (test See_Comment [Automat ed code = 3173-2) message] The system which generated this result transmitted reference range : 23 - 38 Seconds . The reference range was not used to interpr et this result as normal/abnormal . KYLE (test code = KYLE) The [email or web address] patient population mean normal value for aPTT is 30 seconds. Lab Interpretation Normal (test code = 17708-0) [facility] [id number] 05:35:21 Test Item Value Reference Range Interpretation Comments APTT Patient (test See_Comment [Automat ed code = 3173-2) message] The system which generated this result transmitted reference range : 23 - 38 Seconds . The reference range was not used to interpr et this result as normal/abnormal . KYLE (test code = KYLE) The [facility] [[email or web address] patient population mean normal value for aPTT is 30 seconds. Lab Interpretation Normal (test code = 17328-8) [facility] / [id number] 05:33:21 Test Item Value Reference Range Interpretation [...] tions. Lab Interpretation (test Normal code = 87807-3) [facility]. METABOLIC PANEL (39144)2022-02-11 05:33:21 Test Item Value Reference Range Interpretation Comments NA (test code = 137 mmol/L 135-145 2819907938) K (test code = 4.3 mmol/L 3.5-5 5412361643) CL (test code = 103 mmol/L 98-108 2275913617) CO2 TOTAL (test code = 25 mmol/L 23-31 1051450124) AGAP (test code = 2-16 3006291345) BUN (test code = 19 mg/dL 7-23 4468112600) GLUCOSE (test code = 120 mg/dL 70-110 H 4295671056) CREATININE (test code = 1.15 mg/dL 0.5-1.04 H 3628812673) TOTAL BILI (test code = 0.9 mg/dL 0.1-1.9 5468268263) CALCIUM (test code = 8.9 mg/dL 8.6-10.6 6305583282) T PROTEIN (test code = 6.6 g/dL 6.3-8.2 8763108201) ALBUMIN (test code = 4.0 g/dL 3.5-5 1637237401) ALK PHOS (test code = 73 U/L 34-122 2282619530) ALTv (test code = 18 U/L 5-35 1742-6) AST(SGOT) (test code = 31 U/L 13-40 4996287451) eGFR (test code = mL/min/1.73m2 1312728808) KYLE (test code = KYLE) Association of [...] tests). Lab Interpretation Abnormal (test code = 40736-9) [facility]. METABOLIC PANEL (73670)2022-02-11 05:33:21 Test Item Value Reference Range Interpretation Comments NA (test code = 137 mmol/L 135-145 7901955735) K (test code = 4.3 mmol/L 3.5-5.0 7295841769) CL (test code = 103 mmol/L 98-108 4990069660) CO2 TOTAL (test code = 25 mmol/L 23-31 3863109094) AGAP (test code = 2-16 1048581639) BUN (test code = 19 mg/dL 7-23 8601768738) GLUCOSE (test code = 120 mg/dL 70-110 H 7092590447) CREATININE (test code = 1.15 mg/dL 0.50-1.04 H 9770687863) TOTAL BILI (test code = 0.9 mg/dL 0.1-1.5 7052953403) CALCIUM (test code = 8.9 mg/dL 8.6-10.6 7197314531) T PROTEIN (test code = 6.6 g/dL 6.3-8.2 5811152796) ALBUMIN (test code = 4.0 g/dL 3.5-5.0 1152854495) ALK PHOS (test code = 73 U/L 34-122 6866090899) ALTv (test code = 18 U/L 5-35 1742-6) AST(SGOT) (test code = 31 U/L 13-40 1686999167) eGFR (test code = mL/min/1.73m2 3601091488) KYLE (test code = KYLE) Association of [...] tests). Lab Interpretation Abnormal (test code = 95693-9) [facility] / [id number] 05:33:21 Test Item Value Reference Range Interpretation Comments PROTIME PATIENT (test See_Comment [Auto mated message] code = 5964-2) The system [employer] generated this result transmitted ref erence range: 12.0 - 1 4.7 Seconds. The re ference range was not u sed to interpret this result as normal/abnor mal. INR (test code = 6301-6) Nor mal INR <1.1; Warfarin Therap eutic range 2.0 to 3. 0 or 2.5 to 3.5, dep ending upon the indica tions. Lab Interpretation (test Normal code = 38902-3) [facility] WITH [id number] 05:14:37 Test Item Value Reference Range Interpretation [...] RDW-SD (test code = 47.9 fL 39-49.9 76727-9) RDW-CV (test code = 14.9 % 12-15.5 788-0) PLT (test code = See_Comment L [Automated 777-3) message] The sy stem which generated this result transmitted reference range : 166 - 358 10*3/ ?L. The reference r abbey was not used to interpret this result as normal/abnormal . MPV (test code = 9.1 fL 9.5-12.9 L 10413-7) NRBC/100 WBC (test See_Comment [Automat ed code = 9854725628) message] The system which generated this result transmitted reference range : 0.0 - 10.0 /100 WBCs. The refer ence range was not u sed to interpret th is result as normal/abnormal . NRBC x10^3 (test code See_Comment [Auto mated = 8685318132) message] The s ystem which generated this result transmitted reference range : 10*3/?L. The reference range was not used to interpret this result as normal/abnormal . GRAN MAT (NEUT) % 78.5 % (test code = 770-8) IMM GRAN % (test code 0.20 % = 4667250951) LYMPH % (test code = 11.6 % 736-9) MONO % (test code = 8.4 % 5905-5) EOS % (test code = 1.1 % 713-8) BASO % (test code = 0.2 % 706-2) GRAN MAT x10^3(ANC) 3.45 10*3/uL 1.88-7.09 (test code = 1092878361) IMM GRAN x10^3 (test 0-0.06 code = 6558432169) LYMPH x10^3 (test code 0.51 10*3/uL 1.32-3.29 L = 731-0) MONO x10^3 (test code 0.37 10*3/uL 0.33-0.92 = 742-7) EOS x10^3 (test code = 0.05 10*3/uL 0.03-0.39 711-2) BASO x10^3 (test code 0.01-0.07 = 704-7) Lab Interpretation Abnormal (test code = 08391-9) [facility] Coronavirus 2018 [id number] 18:08:00 Test Item Value Reference Range Interpretation [...] det ection of nucleic acids f rom pnyZLOW-OqS-4 v irus and diagnosis of SA RS-CoV-2 virusinfection. It is an Emergency Use Authorization ( EUA) testauthorized by the U.S. FDA. BASIC METABOLIC [id number] 09:37:00 Test Item Value Reference Range Interpretation [...] = 9.0 mg/dL 8.0-10.5 N CA) PROTHROMBIN [id number] 09:32:00 Test Item Value Reference Range Interpretation [...] (to prevent recurrent infar ct). 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 [facility] - XR CHEST 1 [id number] 00:00:00 [facility] : 1955 Sex: F FAX: Carmenza Kelly [phone] [place]: St: ADM FAX: Mike Scales MD [phone] FAX: Bahman Chopra [phone] Name: LIO WATTS [facility] : 1955 Age/S: 66/F [address] [place] [address] Unit #: [id number] Loc: [place] [address] Phys: Bahman Chopra [employer]IPPER Acct: [id number] Dis Date: Status: ADM IN PHONE #: [phone] Exam Date: 06/17/2021 1320 FAX #: [phone] Reason: WATCHMAN EXA MS: CPT CODE: [id number] XR CHEST 1 V 01497 PROCEDURE INFORMATION: Exam: XR Chest Exam date [...] and signed by: Lambert Vega M.D. CC: [facility] Kristen Rahman DO; Mike Lund MD; Bahman Chopra Technologist: RT Taylor(R) Trnscrd Date/Time/By: 06/17/2021 (1862) : By: IselaKWL Orig Print D/T: S: 06/17/2021 (4552) PAGE 1 Signed ReportCOVID 19 Asymptomatic IH [id number] 12:29:00 Test Item Value Reference Range Interpretation [...] high or waivedcomplexit y tests. BASIC METABOLIC EYMDF3579-37-33 11:37:00 Test Item Value Reference Range Interpretation [...] code = 9.0 mg/dL 8.0-10.5 N CA) ICRTKQQEFV8640-58-85 11:37:00 Test Item Value Reference Range Interpretation Comments PREALBUMIN (test code = PREALB) 24.3 mg/dL 16.0-40.0 N PROTHROMBIN [id number] 11:03:00 Test Item Value Reference Range Interpretation [...] (to prevent recurrent infar ct). CBC W/AUTO EVMF0396-16-44 10:59:00 Test Item Value Reference Range Interpretation [...] 0.0-0.1 N NRBC#) - XR CHEST 2 [id number] 00:00:00 [facility] ELEN GARCIAName: LIO WATTS : 1955 Sex: F FAX: Carmenza Kelly DO [phone] [place]: St: PRE FAX: Mike Scales MD [phone] Name: LIO WATTS [facility] Elen Garcia : 1955 Age/S: 66/F [address] [place] [address] Unit #: [id number] Loc: [place], [place] [address]Hvqb: Mike Lund MD Acct: [id number] Dis Date: [place] [facility] [place] #: [phone] Exam Date: 06/16/2021 1120 FAX #: [phone] Reason: PREOP EXAMS: CPT CODE: [id number] XR CHEST 2 V 28197 PROCEDURE INFORMATION: Exam: XR Chest Exam date [...] Technologist: Danielle Nix, RT(R) Trnscrd Date/Time/By: 06/16/2021 (6947) : By: [email or web address] Orig Print D/T: S: 06/16/2021 (5767) PAGE 1 Signed ReportGastrointestinal mexqg1111-09-95 04:35:05 Test Item Value Reference Interpretation Comments [...] Rotavirus PCR (test Not Detected code = 4118180) Salmonella PCR (test Not Detected code = [...] (test code = 7124) [facility] tnnfhiv1424-05-97 19:30:47 Test Item Value Reference Range Interpretation Comments Case number (test [id number] code = 2892935) Surgical pathology See link below for PDF report (test code = Lab Report 2255) Result status (test This is Supplemental code = 6054169) Report for [id number] [facility]2021-04-09 16:31:00 Test Item Value Reference Range Interpretation Comments POC Activated Clotting Time (test code 153 s = POC Activated Clotting Time) [facility]LemywomGQVDMFBLKE1334-92-96 16:31:00 Test Item Value Reference Range Interpretation Comments POC Activated Clotting Time (test code 153 s = POC Activated Clotting Time) [place] 582491-04-09 16:31:00 Test Item Value Reference Range Interpretation Comments POC Activated Clotting Time (test code 153 s = POC Activated Clotting Time) [facility] HospitalUrebgenLPBFWEYUYQ5911-78-91 16:31:00 Test Item Value Reference Range Interpretation Comments POC Activated Clotting Time (test code 153 s = POC Activated Clotting Time) [facility] HospitalMjkagrjDCJAQGIHUB7576-66-80 16:31:00 Test Item Value Reference Range Interpretation Comments POC Activated Clotting Time (test code 153 s = POC Activated Clotting Time) [facility] HospitalZrmdvdxZQQNYFWTGA9741-82-05 16:31:00 Test Item Value Reference Range Interpretation Comments POC Activated Clotting Time (test code 153 s = POC Activated Clotting Time) [facility] HospitalQjsmkkmOHRRYQGITK8424-40-10 16:31:00 Test Item Value Reference Range Interpretation Comments POC Activated Clotting Time (test code 153 s = POC Activated Clotting Time) [place] 582491-04-09 14:37:00 Test Item Value Reference Range Interpretation Comments POC Activated Clotting Time (test code 454 s = POC Activated Clotting Time) [place] 582491-04-09 14:37:00 Test Item Value Reference Range Interpretation Comments POC Activated Clotting Time (test code 454 s = POC Activated Clotting Time) [place] 582491-04-09 14:37:00 Test Item Value Reference Range Interpretation Comments POC Activated Clotting Time (test code 454 s = POC Activated Clotting Time) [place] [address]-04-09 14:37:00 Test Item Value Reference Range Interpretation Comments POC Activated Clotting Time (test code 454 s = POC Activated Clotting Time) [place] 582491-04-09 14:37:00 Test Item Value Reference Range Interpretation Comments POC Activated Clotting Time (test code 454 s = POC Activated Clotting Time) [facility] HospitalQutcumfMJSXWANRFP9157-55-11 14:37:00 Test Item Value Reference Range Interpretation Comments POC Activated Clotting Time (test code 454 s = POC Activated Clotting Time) [facility] HospitalOxpzyghLHUTEQSUHI4483-79-09 14:37:00 Test Item Value Reference Range Interpretation Comments POC Activated Clotting Time (test code 454 s = POC Activated Clotting Time) [facility] HospitalTtfrnkoENZSVZVITY2134-73-52 14:13:00 Test Item Value Reference Range Interpretation Comments POC Activated Clotting Time (test code 354 s = POC Activated Clotting Time) [facility] HospitalOxbirhqFZEDBGIDTF4783-83-73 14:13:00 Test Item Value Reference Range Interpretation Comments POC Activated Clotting Time (test code 354 s = POC Activated Clotting Time) [facility] HospitalEuisaneXESBKAHHBU6317-70-49 14:13:00 Test Item Value Reference Range Interpretation Comments POC Activated Clotting Time (test code 354 s = POC Activated Clotting Time) [facility] HospitalIptcdddRNBYCKYDSF7086-45-86 14:13:00 Test Item Value Reference Range Interpretation Comments POC Activated Clotting Time (test code 354 s = POC Activated Clotting Time) [facility] HospitalAbdcvkyRKBUTOYJFH3232-10-73 14:13:00 Test Item Value Reference Range Interpretation Comments POC Activated Clotting Time (test code 354 s = POC Activated Clotting Time) [facility] HospitalPrxykzcSIFNUYIEDO0735-17-14 14:13:00 Test Item Value Reference Range Interpretation Comments POC Activated Clotting Time (test code 354 s = POC Activated Clotting Time) [facility] HospitalBrsjybjCLVEIAMQAX3471-78-19 14:13:00 Test Item Value Reference Range Interpretation Comments POC Activated Clotting Time (test code 354 s = POC Activated Clotting Time) [facility] SXASZYH6872-83-63 10:37:00Negative (08/29/20 5:37 AM) [facility] ResourcesCHE[facility] VUGVU7065-60-51 10:37:31262Oqkdbolm HermannCHEM PANEL 2020-08-29 10:37:0028[facility] HermannCHEM RDHAK2945-90-80 10:37:001.01[facility] HermannCHEM KGHVU5455-73-59 10:37:97038Czrigzjy HermannCHEM WMQJX5300-31-68 10:37:003.8[facility] HermannCHEM BPLTH4813-13-16 10:37:70258Bfzavpol HermannCHEM YBNAT5749-69-98 10:37:0028[facility] HermannCHEM QQTIZ1139-40-21 10:37:009.8 [facility] HermannCHEM UIVKU5622-37-46 10:37:0011.8[facility] HermannCHEM PANEL 2020-08-29 10:37:0059[facility] HermannCHEM XRLMS7246-64-11 10:37:002.9[facility] IxazopcVOHCVSPNXT2426-19-76 10:37:006.8[facility] XjyahdzUFVREAJTXJ1178-28-29 10:37:004.47[facility] JujpgpbCJGWKMOKEY0042-63-96 10:37:0010.6[facility] RNIKFWWQRT8277-37-37 10:37:0034.0[facility] AvrixbhMZNLXUAUMF9202-25-52 10:37:00 76.1[facility] ZzerdllAWRWFFEUZC1982-48-14 10:37:00 Test Item Value Reference Range Interpretation Comments MCH (test code = MCH) 23.8 pg 27.0-31.0 [facility] RhmbiwfGQWDELIUAK9279-81-29 10:37:0031.3[facility] HermannHEMATOLOGY 2020-08-29 10:37:0018.2[facility] VhceuloBVFNAQFYVL2541-28-73 10:37:81205Sxiuoapg EvfoxciLXKDFGITRL3868-93-94 10:37:007.5[facility] NdkkpgzGYHWVWKPAF3699-98-64 10:37:00 Test Item Value Reference Range Interpretation Comments PT (test code = PT) 12.8 s 12.0-14.7 [facility] QmgijhuUUCKOXHJRX3640-14-66 10:37:00 Test Item Value Reference Range Interpretation Comments INR (test code = INR) 0.97 1 0.85-1.17 [facility] NjpkbfxSHDUTVGKFO0478-72-49 10:37:00 Test Item Value Reference Range Interpretation Comments PTT (test code = PTT) 25.0 s 22.9-35.8 [facility] EffjhgxTVAMYJOGTL8165-01-62 10:37:0070.5[facility] HermannHEMATOLOGY 2020-08-29 10:37:0018.8[facility] TjdjcwrKMHDHIOCNC7960-12-50 10:37:009.5[facility] DtqduoxPNFBIEEMEW2743-78-34 10:37:000.9[facility] NvlmiwdBQSHBKZEHZ2191-34-00 10:37:000.3[facility] IerruhtTCFOJZVZIG8260-89-68 10:37:004.8[facility] KWVWFGJUDR9992-63-88 10:37:001.3[facility] JqzrhoeBAATDWOQSD8262-95-37 10:37:000.6 [facility] QigdfebYEYFOUNPYE6250-45-63 10:37:000.1[facility] HermannHEMATOLOGY 2020-08-29 10:37:001+ *ABN*(08/29/20 5:37 AM)[facility] DseqfzqQHJEQDJLEH6728-33-51 10:37:00Not Detected (08/29/20 5:37 AM)[facility] HermannBLOOD BANK RESULTS 2020-08-29 10:37:00Negative (08/29/20 5:37 AM)[facility] HermannCHEM MOJCZ6724-62-95 10:37:14879Ocobgarw HermannCHEM VHGYO2276-96-83 10:37:0028[facility] HermannCHEM SYKSG8602-98-38 10:37:001.01[facility] HermannCHEM LPICG9579-45-32 10:37:73393 [facility] HermannCHEM RORSM8597-68-04 10:37:003.8[facility] HermannCHEM PANEL 2020-08-29 10:37:91309Tdersrrf HermannCHEM CVCLI7089-83-05 10:37:0028[facility] HermannCHEM YZPFI6286-20-45 10:37:009.8[facility] HermannCHEM VDIMF4350-53-64 10:37:0011.8[facility] HermannCHEM AZYPO6230-19-04 10:37:0059[facility] HermannCHEM ITCCU1286-55-81 10:37:002.9[facility] BwoqbuiKDCVDZXQNI2101-41-08 10:37:006.8 [facility] XffrettGXFHJWAXKH7532-00-23 10:37:004.47[facility] HermannHEMATOLOGY 2020-08-29 10:37:0010.6[facility] GqwaiwbCQPYJZBJTU6414-47-97 10:37:0034.0[facility] UskuuhyFXROQZSLYR3183-45-90 10:37:0076.1[facility] MmsxuraMGIEIBBWNK5333-48-67 10:37:00 Test Item Value Reference Range Interpretation Comments MCH (test code = MCH) 23.8 pg 27.0-31.0 [facility] DnsduxtPDJPXKAYXI1752-80-36 10:37:0031.3[facility] HermannHEMATOLOGY 2020-08-29 10:37:0018.2[facility] CvtynohDHBCKYUBMU6626-60-09 10:37:88751Cjdqkrcf QumkpieQFEUGKGZGA1064-91-28 10:37:007.5[facility] LffduozHJHQNSCMBK9553-79-54 10:37:00 Test Item Value Reference Range Interpretation Comments PT (test code = PT) 12.8 s 12.0-14.7 [facility] McbilfeMQUMVXNKQZ4575-91-07 10:37:00 Test Item Value Reference Range Interpretation Comments INR (test code = INR) 0.97 1 0.85-1.17 [facility] EtodtdrHCVJPESHLQ1314-36-91 10:37:00 Test Item Value Reference Range Interpretation Comments PTT (test code = PTT) 25.0 s 22.9-35.8 [facility] EcnneohJBSHZAAZND0530-45-07 10:37:0070.5[facility] HermannHEMATOLOGY 2020-08-29 10:37:0018.8[facility] YisfzcdPYYMKGRWXY9737-39-57 10:37:009.5[facility] AllpqhhPIHWTERVAB4737-93-15 10:37:000.9[facility] GljymojBVKHMQCXKO3128-52-41 10:37:000.3[facility] JxufpkiJAEEUNDTZJ5542-90-92 10:37:004.8[facility] TEBHQAEUHM5503-21-87 10:37:001.3[facility] HqsiahvLGJSFKPYGA9638-13-91 10:37:000.6 [facility] OpavmxtRUYKNUVYDP5791-67-39 10:37:000.1[facility] HermannHEMATOLOGY 2020-08-29 10:37:001+ *ABN*(08/29/20 5:37 AM)[facility] ApkscguENBVJCHXEZ9740-56-59 10:37:00Not Detected (08/29/20 5:37 AM)[facility] HermannBLOOD BANK RESULTS 2020-08-29 10:37:00Negative (08/29/20 5:37 AM)[facility] HermannCHEM ATDUG4007-70-51 10:37:41724Ohuamdqc HermannCHEM UEZAG7207-73-17 10:37:0028[facility] HermannCHEM ZMTBA2480-17-65 10:37:001.01[facility] HermannCHEM MHEUV8762-00-96 10:37:45755 [facility] HermannCHEM EHRSM6611-67-97 10:37:003.8[facility] HermannCHEM PANEL 2020-08-29 10:37:29192Pkcjzfxm HermannCHEM ZOIWY7625-81-44 10:37:0028[facility] HermannCHEM RLMFK4895-50-18 10:37:009.8[facility] HermannCHEM VQKFS7164-53-39 10:37:0011.8[facility] HermannCHEM IVCHQ9827-22-75 10:37:0059[facility] HermannCHEM CKSAO6049-26-69 10:37:002.9[facility] DqpafxbDJTBTRFGUX7990-81-57 10:37:006.8 [facility] SjcjrkzTEYWXJMTLG6511-64-68 10:37:004.47[facility] HermannHEMATOLOGY 2020-08-29 10:37:0010.6[facility] YwtrcaxHSAFUZOLSL8882-10-05 10:37:0034.0[facility] ZxiqdsnNFXYRTGWND8408-94-79 10:37:0076.1[facility] SpussisOZFHRBNNLH5027-65-00 10:37:00 Test Item Value Reference Range Interpretation Comments MCH (test code = MCH) 23.8 pg 27.0-31.0 [facility] ChaghjzXUPUFTTWBG7968-74-65 10:37:0031.3[facility] HermannHEMATOLOGY 2020-08-29 10:37:0018.2[facility] LhsqsevPOCFZBNPRW1607-84-95 10:37:82419Emvubvlt VlvrdweSFVEMHPNFY1087-88-86 10:37:007.5[facility] RrgysbnGKSMDRXWDY4474-89-84 10:37:00 Test Item Value Reference Range Interpretation Comments PT (test code = PT) 12.8 s 12.0-14.7 [facility] ZyyaibmDTVZQCRIZR4072-50-01 10:37:00 Test Item Value Reference Range Interpretation Comments INR (test code = INR) 0.97 1 0.85-1.17 [facility] HaajydhAKVXVWOQIW5835-55-07 10:37:00 Test Item Value Reference Range Interpretation Comments PTT (test code = PTT) 25.0 s 22.9-35.8 [facility] WbdkflcPWTYRPKNFK3001-64-15 10:37:0070.5[facility] HermannHEMATOLOGY 2020-08-29 10:37:0018.8[facility] FdbcmbmYTHNTJBXFG9066-31-88 10:37:009.5[facility] LwuufgqQLLBYMWVJX4906-99-18 10:37:000.9[facility] HrjjoepPTMVDTLZFX7499-21-36 10:37:000.3[facility] DrvfzndSORMOMGPMR6629-23-46 10:37:004.8[facility] ITDOVQHWMP6720-19-93 10:37:001.3[facility] UlqogxzIMBJDSGPLP6177-05-79 10:37:000.6 [facility] AdfdbflHVRUFWJSUW2325-78-64 10:37:000.1[facility] HermannHEMATOLOGY 2020-08-29 10:37:001+ *ABN*(08/29/20 5:37 AM)[facility] MawvmejHRYKQDFADD8836-38-84 10:37:00Not Detected (08/29/20 5:37 AM)[facility] HermannBLOOD BANK RESULTS 2020-08-29 10:37:00Negative (08/29/20 5:37 AM)[facility] HermannCHEM TQYHQ5006-59-57 10:37:29041Ulnakzat HermannCHEM FOYUF7459-78-19 10:37:0028[facility] HermannCHEM BPHLQ5192-07-47 10:37:001.01[facility] HermannCHEM RVUIS1786-68-74 10:37:56658 [facility] HermannCHEM LVHTV9362-28-71 10:37:003.8[facility] HermannCHEM PANEL 2020-08-29 10:37:53808Aubswqpx HermannCHEM HHHOX5051-89-66 10:37:0028[facility] HermannCHEM KZCBS8664-90-73 10:37:009.8[facility] HermannCHEM NJCMO0341-60-96 10:37:0011.8[facility] HermannCHEM WFWQR5412-87-44 10:37:0059[facility] HermannCHEM IGQZA7297-81-13 10:37:002.9[facility] QodzpbfLXCXYGKQOA1955-28-10 10:37:006.8 [facility] OllwjavPKSQCJZGLR8499-91-45 10:37:004.47[facility] HermannHEMATOLOGY 2020-08-29 10:37:0010.6[facility] HjtzdjzOFUCHCVPHV6234-31-02 10:37:0034.0[facility] OxzsvmpBKCQDUGCMZ1684-93-21 10:37:0076.1[facility] YvyknssLLRQUUUEKU6348-00-28 10:37:00 Test Item Value Reference Range Interpretation Comments MCH (test code = MCH) 23.8 pg 27.0-31.0 [facility] JyqrsrlOQNSVXHKMU3238-30-93 10:37:0031.3[facility] HermannHEMATOLOGY 2020-08-29 10:37:0018.2[facility] GfvnhenLUVLZVLEPA7210-19-66 10:37:25743Tnsykoyy OibozprLIVOYXXQZA4326-58-33 10:37:007.5[facility] PduvdbmWWAVASHXCH3968-99-25 10:37:00 Test Item Value Reference Range Interpretation Comments PT (test code = PT) 12.8 s 12.0-14.7 [facility]qgqmvmAYXBGXRQUQ8283-33-67 10:37:00 Test Item Value Reference Range Interpretation Comments INR (test code = INR) 0.97 1 0.85-1.17 [facility]ennialBikpscxBHQWAQZUQO0649-99-77 10:37:00 Test Item Value Reference Range Interpretation Comments PTT (test code = PTT) 25.0 s 22.9-35.8 [facility]ennialTzoueegHYKRCFXGDX4537-27-17 10:37:0070.5[facility] HermannHEMATOLOGY 2020-08-29 10:37:0018.8[facility] MwdnsdpSDDSZKWMZJ3980-44-12 10:37:009.5[facility] LhslkovYFBQLLMQAE5089-93-73 10:37:000.9[facility] VnqqeyqGZZQLTRURR5957-03-78 10:37:000.3[facility] QzynqnoEBPMBLLQJX0905-80-31 10:37:004.8[facility] XHBACVJBMZ1227-59-84 10:37:001.3[facility] IxsgtjrJWIQUZTPMJ5064-96-58 10:37:000.6 [facility] HtktwmnYONGHVPHEA6451-21-15 10:37:000.1[facility] HermannHEMATOLOGY 2020-08-29 10:37:001+ *ABN*(08/29/20 5:37 AM)[facility] EcuzmbyZNFZKEBEIY4553-52-15 10:37:00Not Detected (08/29/20 5:37 AM)[facility] HermannBLOOD BANK RESULTS 2020-08-29 10:37:00Negative (08/29/20 5:37 AM)[facility] HermannCHEM XYMDX5891-79-38 10:37:25678Qdliloeq HermannCHEM YCDTI5874-86-38 10:37:0028[facility] HermannCHEM BRBAQ4822-94-01 10:37:001.01[facility] HermannCHEM JOAAN1093-30-55 10:37:76708 [facility] HermannCHEM DEHCI9682-44-84 10:37:003.8[facility] HermannCHEM PANEL 2020-08-29 10:37:34915Ualfmbfd HermannCHEM OXJUO7261-32-03 10:37:0028[facility] HermannCHEM BKPZM7483-79-69 10:37:009.8[facility] HermannCHEM VSKQI4746-13-32 10:37:0011.8[facility] HermannCHEM NSAHL6553-40-53 10:37:0059[facility] HermannCHEM LLOEZ8524-00-14 10:37:002.9[facility] ZikrmetPPVJYWGRPR8690-81-26 10:37:006.8 [facility] BncidvsDYCFUBUCHT3582-33-19 10:37:004.47[facility] HermannHEMATOLOGY 2020-08-29 10:37:0010.6[facility] KvqpdcbZPTALDCQYV2457-00-34 10:37:0034.0[facility] OsntghmRRUWSXMEOM5335-68-08 10:37:0076.1[facility] JehsqidKCVSUHFUDH0804-35-80 10:37:00 Test Item Value Reference Range Interpretation Comments MCH (test code = MCH) 23.8 pg 27.0-31.0 [facility] MiwvwwtXJRJSCQJBJ6067-56-00 10:37:0031.3[facility] HermannHEMATOLOGY 2020-08-29 10:37:0018.2[facility] AnvjkreDDVSAYPOGN9547-02-37 10:37:91834Epdizibg GbgzkiyNTUMFCRPOH4652-40-58 10:37:007.5[facility] TooouslJNMPHQZYGV6060-33-09 10:37:00 Test Item Value Reference Range Interpretation Comments PT (test code = PT) 12.8 s 12.0-14.7 [facility] BpxhjejSZLWCOUURW9281-31-63 10:37:00 Test Item Value Reference Range Interpretation Comments INR (test code = INR) 0.97 1 0.85-1.17 [facility] BeahxnlYOCQVRKFOX2328-89-18 10:37:00 Test Item Value Reference Range Interpretation Comments PTT (test code = PTT) 25.0 s 22.9-35.8 [facility] GqfrbgbCQTSXMNGIT3258-06-40 10:37:0070.5[facility] HermannHEMATOLOGY 2020-08-29 10:37:0018.8[facility] NvyonmuTICWXYLHAO9935-70-88 10:37:009.5[facility] PfzaruvLSLAUIAQFG0223-10-67 10:37:000.9[facility] JebeufjVMTKBWBZQK8360-08-42 10:37:000.3[facility] ZpefevrARRMJZVURX7737-87-76 10:37:004.8[facility] RUQLZLJPTD5029-78-87 10:37:001.3[facility] AgsgijrWSNRPPNYCK5473-32-62 10:37:000.6 [facility] IpfizqvWLKPLLNBDD7798-55-55 10:37:000.1[facility] HermannHEMATOLOGY 2020-08-29 10:37:001+ *ABN*(08/29/20 5:37 AM)[facility] DxgrswnYRHBXEIHDA7706-55-22 10:37:00Not Detected (08/29/20 5:37 AM)[facility] HermannBLOOD BANK RESULTS 2020-08-29 10:37:00Negative (08/29/20 5:37 AM)[facility] HermannCHEM BSNYI9344-53-40 10:37:16720Pxxcgadt HermannCHEM KDLEN1813-03-95 10:37:0028[facility] HermannCHEM NKEZY8455-81-39 10:37:001.01[facility] HermannCHEM RYCEE5581-60-60 10:37:86364 [facility] HermannCHEM LUEUM5958-65-36 10:37:003.8[facility] HermannCHEM PANEL 2020-08-29 10:37:41244Rhkidsjj HermannCHEM EKLLV9855-84-79 10:37:0028[facility] HermannCHEM GJCNW0640-22-28 10:37:009.8[facility] HermannCHEM DMVPD4930-09-28 10:37:0011.8[facility] HermannCHEM HZAVN5907-79-87 10:37:0059[facility] HermannCHEM MJSXV6572-06-79 10:37:002.9[facility] GdsiairAFYBUZXWKK5649-14-64 10:37:006.8 [facility] JsehcbhBHDWICCKSA1521-71-33 10:37:004.47[facility] HermannHEMATOLOGY 2020-08-29 10:37:0010.6[facility] AzqrekoSZIUTKWOZE7685-11-11 10:37:0034.0[facility] KtdbrwkEYGFXDKWYB9605-82-65 10:37:0076.1[facility] NozicmnRIUNFYYGHY1140-06-80 10:37:00 Test Item Value Reference Range Interpretation Comments MCH (test code = MCH) 23.8 pg 27.0-31.0 [facility] YurfgagJWBUFNIMPB4180-83-88 10:37:0031.3[facility] HermannHEMATOLOGY 2020-08-29 10:37:0018.2[facility] DstwwggDFBSWVQNVQ9977-37-68 10:37:91480Faucbmws PjqqqxsJTBXSQZDQW2405-79-48 10:37:007.5[facility] CdwrdofBPZYKJHKUV7985-82-74 10:37:00 Test Item Value Reference Range Interpretation Comments PT (test code = PT) 12.8 s 12.0-14.7 [facility] XuhoyxbCILDWFHMUF2794-11-20 10:37:00 Test Item Value Reference Range Interpretation Comments INR (test code = INR) 0.97 1 0.85-1.17 [facility] VcbljzwWEPWCZUHTB1814-00-95 10:37:00 Test Item Value Reference Range Interpretation Comments PTT (test code = PTT) 25.0 s 22.9-35.8 [facility] RuxdedpHOUZCFLOJU0365-18-58 10:37:0070.5[facility] HermannHEMATOLOGY 2020-08-29 10:37:0018.8[facility] KfmymklDKQCNSMNQI6276-29-10 10:37:009.5[facility] BlaibdrIFZEPRBGFE4733-25-32 10:37:000.9[facility] ZwwmiotIUMKMXWNLL6567-42-24 10:37:000.3[facility] ZlxyghkAHKLEDFZJY5976-66-33 10:37:004.8[facility] LDSXUWIDCK5465-14-17 10:37:001.3[facility] BfzffyjFBOZHGBSNO9864-70-11 10:37:000.6 [facility] CmlfxfhFNIZGVKZEU8248-93-77 10:37:000.1[facility] HermannHEMATOLOGY 2020-08-29 10:37:001+ *ABN*(08/29/20 5:37 AM)[facility] KubmnzkYNLJSGWZWV4304-81-81 10:37:00Not Detected (08/29/20 5:37 AM)[facility] HermannBLOOD BANK RESULTS 2020-08-29 10:37:00Negative (08/29/20 5:37 AM)[facility] HermannCHEM JNHJG4034-01-73 10:37:70121Scbbimct HermannCHEM JKBMZ7173-04-86 10:37:0028[facility] HermannCHEM QZJWH9529-21-17 10:37:001.01[facility] HermannCHEM GJTNM9186-71-48 10:37:28871 [facility]annCHEM NVYMM2416-86-04 10:37:003.8[facility] HermannCHEM PANEL 2020-08-29 10:37:85510Dfhoozez HermannCHEM FMAQV0899-01-43 10:37:0028[facility] HermannCHEM YTEKU0846-21-26 10:37:009.8[facility] HermannCHEM LZJGT1869-16-24 10:37:0011.8[facility] HermannCHEM PETHG4808-36-13 10:37:0059[facility] HermannCHEM UJHOL5155-49-54 10:37:002.9[facility] QkbvxoqTWSGBQJBEY6804-79-47 10:37:006.8 [facility] LnbrtgaGDHQMMMEJK3638-31-24 10:37:004.47[facility] HermannHEMATOLOGY 2020-08-29 10:37:0010.6[facility] XkbkjjwKGSCWQENIZ4314-06-55 10:37:0034.0[facility] ZwgkmdyNYDVTVHSQT3774-29-80 10:37:0076.1[facility] OixpcvsVLVTVZCJCY3350-46-74 10:37:00 Test Item Value Reference Range Interpretation Comments MCH (test code = MCH) 23.8 pg 27.0-31.0 [facility] ZpntnqcPJUOGWRBKZ7851-22-98 10:37:0031.3[facility]annHEMATOLOGY 2020-08-29 10:37:0018.2[facility] PmtxbztQDAECLDVRK2205-79-45 10:37:42979Fxoyzuvk LgdpvxmKDCEGFMXEQ8448-79-08 10:37:007.5[facility] IeilwjnGWUEBNOLII8644-40-39 10:37:00 Test Item Value Reference Range Interpretation Comments PT (test code = PT) 12.8 s 12.0-14.7 [facility] PjxnpnjGPCYMDGSPO7929-49-38 10:37:00 Test Item Value Reference Range Interpretation Comments INR (test code = INR) 0.97 1 0.85-1.17 [facility] PocvfdaJGPARZUVMN2230-20-28 10:37:00 Test Item Value Reference Range Interpretation Comments PTT (test code = PTT) 25.0 s 22.9-35.8 [facility] QmjwsaoBWLZIGXBGP6719-07-25 10:37:0070.5[facility]annHEMATOLOGY 2020-08-29 10:37:0018.8[facility] KbogjrsNAORRRCGBI3456-93-85 10:37:009.5[facility] EhutbbaOBEXEGIAGC5416-77-57 10:37:000.9[facility] MpzafknLLYOIVCNJK8056-62-56 10:37:000.3[facility] SkoyfjlGXJOLNAMLS3539-18-29 10:37:004.8[facility] YBBELLTPAX5757-72-51 10:37:001.3[facility] EjpbufpAVCWSRXVQG4827-54-17 10:37:000.6 [facility] JthbezrONHHOFLMMY6827-78-50 10:37:000.1[facility]annHEMATOLOGY 2020-08-29 10:37:001+ *ABN*(08/29/20 5:37 AM)[facility] UuulegoRGLFNAWLRA0180-74-07 10:37:00Not Detected (08/29/20 5:37 AM)[facility]AMYD[facility] GC, TV,PCR, IN WGIJQ3767-75-24 15:38:00 Test Item Value Reference Range Interpretation Comments FT (test code = CHTR) Not detected (qualifier Not Detected N value) FT (test code = Not detected (qualifier Not Detected N NGONO) value) FT (test code = TRVG) Not detected (qualifier Not Detected N value) [facility] GBIBSSONUTQ2090-06-86 10:57:00 Test Item Value Reference Range Interpretation Comments Color (test code = UCOLR) Dk. Yellow Clarity (test code = UCLAR) Hazy Glucose (test code = UGLUC) NEGATIVE NEGATIVE N Bilirubin (test code = UBILI) NEGATIVE NEGATIVE N Ketones (test code = UKET) NEGATIVE NEGATIVE N Specific [place] (test code = 1.025 1.005-1.030 A USPGR) [...] None Seen None Seen N URCRYS) [facility]
--- NOTE | 2023-03-29 01:10 | EDPHYS ---
Physician Documentation [facility] Name: Marjan Kolb Age: 68 yrs Sex: Female : 1955 Arrival Date: 03/28/2023 Time: 21:39 Bed IW9 Private MD: ED Physician Dion Randhawa HPI: 03/28 21:53 This 68 yrs old Female presents to ER via EMS with complaints of Headache and abdominal sp4 pain . 03/29 00:23 Patient is a 68-year-old female who presents with EMS for complaint of headache fever sp4 and abdominal pain. Patient has extensive past medical history of angina, anxiety, atrial fibrillation, bipolar disorder, esophageal varices, hepatitis and also history of addiction to pain medication. Patient is well-known to me from prior medical visits. She has been assessed here on 03/25/2023 for chest pains and released. ACS work-up was unremarkable at that time.. 00:24 Patient has history of total of 240 visits to the ER for various complaints with 5 sp4 visits in February 2023. . Historical: - Allergies: 03/28 21:46 Azithromycin; mb9 21:46 Bactrim; mb9 21:46 butorphanol; mb9 21:46 Fentanyl; mb9 21:46 Reglan; mb9 21:46 Sulfa (Sulfonamide Antibiotics); mb9 21:46 TRIMETHOPRIM; mb9 - PMHx: 21:46 angina pectoris; Anxiety; Atrial fibrillation; Bipolar disorder; esophageal varicies; mb9 Hepatitis; HIV positive; Hypertensive disorder; Migraine; panic attack; - PSHx: 21:46 Appendectomy; Cholecystectomy; mb9 - Immunization history:: Adult Immunizations up to date. - Social history:: Smoking status: Patient/guardian denies using tobacco. - Family history:: not pertinent. ROS: 03/29 01:07 Constitutional: Positive fever positive headache positive abdominal pain sp4 All other systems are negative, Exam: 01:07 Constitutional: This is a well developed, well nourished patient who is awake, alert, sp4 and in no acute distress. Head/Face: Normocephalic, atraumatic. Eyes: Pupils equal round and reactive to light, extra-ocular motions intact. Lids and lashes normal. Conjunctiva and sclera are not injected. Cornea within normal limits. Periorbital areas with no swelling, redness, or edema. ENT: Nares patent. No nasal discharge, no septal abnormalities noted. Tympanic membranes are normal and external auditory canals are clear. Oropharynx with no redness, swelling, or masses, exudates, or evidence of obstruction, uvula midline. Mucous membranes moist. Neck: Trachea midline, no thyromegaly or masses palpated, and no cervical lymphadenopathy. Supple, full range of motion without nuchal rigidity, or vertebral point tenderness. Chest/axilla: Normal chest wall appearance and motion. Nontender with no deformity. No lesions are appreciated. Cardiovascular: Regular rate and rhythm with a normal S1 and S2. No gallops, murmurs, or rubs. Normal PMI, no JVD. No pulse deficits. Respiratory: Lungs have equal breath sounds bilaterally, clear to auscultation and percussion. No rales, rhonchi or wheezes noted. No increased work of breathing, no retractions or nasal flaring. Abdomen/GI: Soft, non-tender, with normal bowel sounds. No distension or tympany. No guarding or rebound. No evidence of tenderness throughout. Back: No spinal tenderness. No costovertebral tenderness. Skin: Warm, dry with normal turgor. Normal color with no rashes, no lesions, and no evidence of cellulitis. MS/ Extremity: Pulses equal, no cyanosis. Neurovascular intact. Full, normal range of motion. Neuro: Awake and alert, GCS 15, oriented to person, place, time, and situation. Cranial nerves II-XII grossly intact. Motor strength 5/5 in all extremities. Sensory grossly intact. Psych: Awake, alert, with orientation to person, place and time. Behavior, mood, and affect are within normal limits Vital Signs: 03/28 21:46 BP 185 / 102; Pulse 84; Resp 18; Temp 97.5; Pulse Ox 98% ; Weight 90.72 kg; Height 5 mb9 ft. 2 in. ; Pain 10/10; 21:46 Body Mass Index 36.58 (90.72 kg, 157.48 cm) mb9 21:46 Pain Scale: Adult mb9 MDM: 21:54 Patient medically screened. sp4 03/29 01:07 Differential Diagnosis altered mental status, sepsis, flu. Data reviewed: vital signs, sp4 nurses notes, EMS record, old medical records. Consideration of Admission/Observation Escalation of care including admission/observation considered. ED course: Patient has decided to depart prior to work-up completion. At this time will provide informed discharge for the patient and will advise her to seek a primary care physician.. Administered Medications: No medications were administered Disposition Summary: 03/29/23 01:09 Discharge Ordered Notes: Location: Home sp4 Problem: new sp4 Symptoms: are unchanged sp4 Condition: Stable sp4 Diagnosis - Abdominal pain, unspecified sp4 - Fever, unspecified sp4 - Headache sp4 Followup: sp4 - With: Private Physician - When: 1 - 2 days - Reason: Recheck today's complaints Discharge Instructions: - Discharge Summary Sheet sp4 - General Headache Without Cause sp4 Forms: - Patient Portal Instructions sp4 Signatures: Dispatcher [employer] Jessie Westfall RN RN mb9 Dion Randhawa MD MD sp4 Corrections: (The following items were deleted from the chart) 00:29 00:24 Patient has history of total of 240 visits to the ER for various complaints with sp4 6 visits in February 2023. . sp4
--- NOTE | 2023-03-29 01:10 | ER ---
Nurse's Notes [facility] Name: Marjan Kolb Age: 68 yrs Sex: Female : 1955 Arrival Date: 03/28/2023 Time: 21:39 Bed IW9 Private MD: Diagnosis: Abdominal pain, unspecified;Fever, unspecified;Headache Presentation: 03/28 21:46 Chief complaint: EMS states: "toned out for headache and abdominal pain. She's had a mb9 headache all day. Administered 975 mg of Tylenol and EKG was NSR.". Coronavirus screen: Vaccine status: Patient reports receiving the 2nd dose of the covid vaccine. Ebola Screen: No symptoms or risks identified at this time. Initial Sepsis Screen: Does the patient meet any 2 criteria? No. Patient's initial sepsis screen is negative. Does the patient have a suspected source of infection? No. Patient's initial sepsis screen is negative. Risk Assessment: Do you want to hurt yourself or someone else? Patient reports no desire to harm self or others. Onset of symptoms was March 28, 2023. 21:46 Method Of Arrival: EMS: [facility] mb9 21:46 Acuity: BLAYNE 3 mb9 Historical: - Allergies: 21:46 Azithromycin; mb9 21:46 Bactrim; mb9 21:46 butorphanol; mb9 21:46 Fentanyl; mb9 21:46 Reglan; mb9 21:46 Sulfa (Sulfonamide Antibiotics); mb9 21:46 TRIMETHOPRIM; mb9 - PMHx: 21:46 angina pectoris; Anxiety; Atrial fibrillation; Bipolar disorder; esophageal varicies; mb9 Hepatitis; HIV positive; Hypertensive disorder; Migraine; panic attack; - PSHx: 21:46 Appendectomy; Cholecystectomy; mb9 - Immunization history:: Adult Immunizations up to date. - Social history:: Smoking status: Patient/guardian denies using tobacco. - Family history:: not pertinent. Screenin/07 01:34 [facility] ED Fall Risk Assessment (Adult) History of falling in the last 3 months, bp including since admission No falls in past 3 months (0 pts). Abuse screen: Denies threats or abuse. Denies injuries from another. Nutritional screening: No deficits noted. Tuberculosis screening: No symptoms or risk factors identified. Vital Signs: 03/28 21:46 BP 185 / 102; Pulse 84; Resp 18; Temp 97.5; Pulse Ox 98% ; Weight 90.72 kg; Height 5 mb9 ft. 2 in. ; Pain 10; 21:46 Body Mass Index 36.58 (90.72 kg, 157.48 cm) mb9 21:46 Pain Scale: Adult mb9 ED Course: 21:46 Patient arrived in ED. mb9 21:46 Arm band placed on. mb9 21:48 Triage completed. mb9 21:52 Dion Randhawa MD is Attending Physician. sp4 03/29 01:07 Carlos Eduardo Olivera, RN is Primary Nurse. bp 01:34 Patient has correct armband on for positive identification. bp 01:34 No provider procedures requiring assistance completed. Patient did not have IV access bp during this emergency room visit. Administered Medications: No medications were administered Outcome: 01:09 Discharge ordered by . sp4 01:34 Discharged to home ambulatory, bp 01:34 Condition: stable 01:34 Discharge instructions given to patient, Instructed on discharge instructions, follow up and referral plans. Demonstrated understanding of instructions, follow-up care, 01:35 Patient left the ED. bp Signatures: Carlos Eduardo Olivera, RN RN Jessie Gonzalez RN RN Dion Mobley MD MD sp4
[2023-03-29 01:47] VITALS: BP 185/102; TEMP 97.5; O2SAT 98
== END 2023-03-29 01:35 | disposition home or self-care (01) ==
LOC: ER 21:39
DX: R10.9 Unspecified abdominal pain (principal); R51.9 Headache, unspecified; R50.9 Fever, unspecified; Z21 Asymptomatic human immunodeficiency virus [HIV] infection status
CPT/HCPCS: 99283

== ENCOUNTER 2023-04-19 08:35 | Emergency (ER) | payer OTHER ==
--- NOTE | 2023-04-19 08:53 | ER ---
Nurse's Notes [facility] Name: Marjan Kolb Age: 68 yrs Sex: Female : 1955 Arrival Date: 04/19/2023 Time: 08:35 Bed IW5 Private MD: Lele Rahman H Diagnosis: Rash and other nonspecific skin eruption Presentation: 04/19 08:50 Chief complaint: Patient states: rash all over body , itchy , started yesterday. iw Coronavirus screen: At this time, the client does not indicate any symptoms associated with coronavirus-19. Ebola Screen: Patient negative for fever greater than or equal to 101.5 degrees Fahrenheit, and additional compatible Ebola Virus Disease symptoms Patient denies exposure to infectious person. Patient denies travel to an Ebola-affected area in the 21 days before illness onset. No symptoms or risks identified at this time. Initial Sepsis Screen: Does the patient meet any 2 criteria? Does the patient have a suspected source of infection? No. Patient's initial sepsis screen is negative. Risk Assessment: Do you want to hurt yourself or someone else? Patient reports no desire to harm self or others. 08:50 Method Of Arrival: Ambulatory iw 08:50 Acuity: BLAYNE 4 iw Triage Assessment: 08:50 General: Appears in no apparent distress. Behavior is calm, cooperative. iw Historical: - Allergies: 08:51 Azithromycin; iw 08:51 Bactrim; iw 08:51 butorphanol; iw 08:51 Fentanyl; iw 08:51 Reglan; iw 08:51 Sulfa (Sulfonamide Antibiotics); iw 08:51 TRIMETHOPRIM; iw - PMHx: 08:51 angina pectoris; Anxiety; Atrial fibrillation; Bipolar disorder; esophageal varicies; iw Hepatitis; HIV positive; Hypertensive disorder; Migraine; panic attack; - PSHx: 08:51 Appendectomy; Cholecystectomy; iw - Immunization history:: Adult Immunizations unknown. - Social history:: Smoking status: unknown. Screenin:20 [facility] ED Fall Risk Assessment (Adult) Score/Fall Risk Level 0 - 2 = Low Risk. Abuse iw screen: Denies threats or abuse. Denies injuries from another. Nutritional screening: No deficits noted. Tuberculosis screening: No symptoms or risk factors identified. Assessment: 08:50 General: Appears in no apparent distress. Behavior is calm, cooperative. Pain: Denies iw pain. Neuro: Level of Consciousness is awake, alert, obeys commands, Oriented to person, place, time, situation, Moves all extremities. Cardiovascular: Patient's skin is warm and dry. Respiratory: Respiratory effort is even, unlabored, Respiratory pattern is regular. Derm: Rash noted that is itchy, on chest, abdomen, right arm and left arm. Musculoskeletal: Range of motion: intact in all extremities. Vital Signs: 08:52 BP 185 / 94; Pulse 79; Resp 16; Temp 97; Pulse Ox 96% on R/A; iw ED Course: 08:38 Patient arrived in ED. mr 08:38 Lele Rahman DO is Private Physician. mr 08:41 Rosemary Cespedes FNP-C is [facility]. kb 08:41 Jose Shah DO is Attending Physician. kb 08:50 Patient has correct armband on for positive identification. Provided Education on: . iw 08:51 Triage completed. iw 08:52 Arm band placed on. iw 08:54 Jacquelin Meier, RN is Primary Nurse. iw 09:22 No provider procedures requiring assistance completed. Patient did not have IV access iw during this emergency room visit. Administered Medications: 09:23 Drug: predniSONE PO 40 mg PO once Route: PO; iw 09:23 Drug: Famotidine PO 20 mg PO once Route: PO; iw Medication: 09:20 VIS not applicable for this client. iw Outcome: 08:52 Discharge ordered by MD. kb 09:22 Discharged to home ambulatory, iw 09:22 Condition: good 09:22 Discharge instructions given to patient, Instructed on discharge instructions, follow up and referral plans. medication usage, Demonstrated understanding of instructions, follow-up care, medications, Prescriptions given X 2, 09:23 Patient left the ED. iw Signatures: Rosemary Cespedes FNP-C [employer]IST-Merrillb Jessie Hill, Reg Reg mr Jacquelin Meier, RN RN iw Corrections: (The following items were deleted from the chart) 08:53 08:52 Resp 16bpm; Pulse Ox 96% RA; Temp 97F; iw iw
--- NOTE | 2023-04-19 08:53 | EDPHYS ---
Physician Documentation [facility] Name: Marjan Kolb Age: 68 yrs Sex: Female : 1955 Arrival Date: 04/19/2023 Time: 08:35 Bed IW5 Private MD: Lele Rahman H ED Physician Jose Shah HPI: 04/19 09:09 This 68 yrs old Female presents to ER via Ambulatory with complaints of Rash. kb 09:09 Pt is a 68 year old female who presents with a rash that started last night. Reports kb diffuse itching. Cause unknown. Denies pain or fever. Historical: - Allergies: 08:51 Azithromycin; iw 08:51 Bactrim; iw 08:51 butorphanol; iw 08:51 Fentanyl; iw 08:51 Reglan; iw 08:51 Sulfa (Sulfonamide Antibiotics); iw 08:51 TRIMETHOPRIM; iw - PMHx: 08:51 angina pectoris; Anxiety; Atrial fibrillation; Bipolar disorder; esophageal varicies; iw Hepatitis; HIV positive; Hypertensive disorder; Migraine; panic attack; - PSHx: 08:51 Appendectomy; Cholecystectomy; iw - Immunization history:: Adult Immunizations unknown. - Social history:: Smoking status: unknown. ROS: 09:07 Constitutional: Negative for fever, chills, and weight loss, kb 09:07 Skin: Positive for rash, diffusely, 09:07 All other systems are negative, Exam: 09:07 Constitutional: This is a well developed, well nourished patient who is awake, alert, kb and in no acute distress. Head/Face: Normocephalic, atraumatic. ENT: Moist Mucous membranes Cardiovascular: Regular rate Respiratory: Respirations even and unlabored. No increased work of breathing. Talking in full sentences MS/ Extremity: Pulses equal, no cyanosis. Neurovascular intact. Full, normal range of motion. Neuro: Awake and alert, GCS 15, oriented to person, place, time, and situation. Moves all extremities. Normal gait. 09:07 Skin: rash a mild rash is noted, Vital Signs: 08:52 BP 185 / 94; Pulse 79; Resp 16; Temp 97; Pulse Ox 96% on R/A; iw MDM: 08:41 Patient medically screened. kb 09:07 Differential diagnosis: allergic reaction, parasite infection. Data reviewed: vital kb signs, nurses notes. Counseling: I had a detailed discussion with the patient and/or guardian regarding the historical points, exam findings, and any diagnostic results supporting the discharge/admit diagnosis, the need for outpatient follow up, a family practitioner, to return to the emergency department if symptoms worsen or persist or if there are any questions or concerns that arise at home. Administered Medications: 09:23 Drug: predniSONE PO 40 mg PO once Route: PO; iw 09:23 Drug: Famotidine PO 20 mg PO once Route: PO; iw Disposition: 15:26 I was immediately available on-site in the Emergency Department for consultation in the ms3 care of the patient. Disposition Summary: 04/19/23 08:52 Discharge Ordered Notes: Location: Home kb Condition: Stable kb Diagnosis - Rash and other nonspecific skin eruption kb Followup: kb - With: Emergency Department - When: As needed - Reason: Worsening of condition Followup: kb - With: Private Physician - When: 2 - 3 days - Reason: Recheck today's complaints, Continuance of care, Re-evaluation by your physician Discharge Instructions: - Discharge Summary Sheet kb - Rash, Adult, [id number] kb Forms: - Medication Reconciliation Form kb - Thank You Letter kb - Antibiotic Education kb - Prescription Opioid Use kb - Patient Portal Instructions kb - Leadership Thank You Letter kb Prescriptions: - Pepcid 20 mg Oral Tablet - take 1 tablet ORAL route every 12 hours for 5 days; 10 tablet; Refills: 0, kb Product Selection Permitted - Prednisone 20 mg Oral Tablet - take 1 tablet ORAL route once daily for 5 days; 5 tablet; Refills: 0, Product kb Selection Permitted Signatures: Rosemary Cespedes FNP-C FNP-Jacquelin Harman, RN RN iw Jose Shah DO DO ms3
--- OUTSIDE RECORDS SUMMARY | 2023-04-19 09:05 | XMS REPORT | Continuity of Care Document ---
:1955 Author Organization [facility] t Address [address] [facility] [address] [place] [address] Support Name Relationship Address Phone Bharat Dean Spouse [id number] [place] [id number] Jose Dean Daughter Unavailable [phone] Katina Munizianne Child [address] [facility] [place] [address] Bharat Dean Spouse [id number] [place] [address] Bharat Dean Spouse [address] [facility] [address] [place] [address] UNK, UNK SELF . [phone] . RABIA MUNIZ DA X [phone] [place] [address] NONE, GIVEN OT X [phone] [place] [address] MATHEUS MUNIZ Unavailable [address] [facility] [phone] [place] [address] JOSE MUNIZ CH [address] [facility] [phone] [place] [address] JOSE MUNIZ Relative [address] [facility] Unavaila ble [address] [place] [address] BHAART DEAN Spouse [address] Unavailable [place] [id number] BHARAT DEAN RAY X [address] [facility] [address] [place] [address] Ray Bharat Dean Spouse [address] [facility] [address] [phone] [place] [address] Care Team Providers Name Role Phone Urmila Rahman Primary Care Physician ELAN LIRA Attending Clinician Unavailable BEVERLY LAYTON Attending Clinician Unavailable SANTIAGO CARDENAS Attending Clinician Unavailable LORENZO MARAVILLA Attending Clinician Unavailable Lorenzo Maravilla MD Attending Clinician GREY GABRIEL Attending Clinician Unavailable [email or web address]_Kalucasyala_S Attending Clinician Unavailable Neelima Tripp RN Attending Clinician Unavailable Go Russell DO Attending Clinician Lm Abbott MD Attending Clinician [facility] Attending Clinician Unavailable Santiago Sanchez Attending Clinician Doctor Unassigned, [place] Attending Clinician Unavailable Bill COLES Attending Clinician Unavailable Bill Rose Attending Clinician HOME MATTHEWS Attending Clinician Unavailable Home Santamaria Attending Clinician THERESA HICKMAN Attending Clinician Unavailable Theresa Hickman DO Attending Clinician ANETTE OLEA Attending Clinician Unavailable Anette Olea MD Attending Clinician PAULETTE GRAY Attending Clinician Unavailable Paulette Galvan Attending Clinician UNKNOWN, ATTENDING Attending Clinician Unavailable Robbi Bal Attending Clinician Isaias Whiteside RN Attending Clinician Unavailable TOMY MARIE Attending Clinician Unavailable Reilly Means MD Attending Clinician Ofe Shields MD Attending Clinician Tomy Marie MD Attending Clinician CHARITY MCALLISTER Attending Clinician Unavailable Charity Mcallister MD Attending Clinician GADIEL KOEHLER Attending Clinician Unavailable Mike Lund Attending Clinician Unavailable NIKOLAI REEVES Attending Clinician Unavailable Eliseo Arce MD Attending Clinician Carol Ann MECHANICAL SOUND TECHNICIAN, Sarai Lieberman Attending Clinician [phone] Ashly Pelletier MA Attending Clinician Unavailable Dagoberto Bass MD Attending Clinician Tiny SALGUERO, [place] Attending Clinician Lab, Adc Fam Pob I Attending Clinician Unavailable Clark PARRA, Monica Attending Clinician Unavailable Agustina Ortiz MA Attending Clinician Unavailable Andrez RAMIREZ, Rody Attending Clinician Unavailable Remigio JENKINS, Kirit Barnes Attending Clinician HEMATPOUR, REGINAASHAYAR Attending Clinician Unavailable Caridad HUITRONP, Gloria Attending Clinician Xiao RAMIREZ, Michael Corbin Attending Clinician Unavailable Team, [facility] Attending Clinician UnavailDO PORSHA Newell Attending Clinician Unavailable Rodo JENKINS, Gadiel Attending Clinician Tyrone JENKINS, Eveline Sierra Attending Clinician Eladio Colorado RN Attending Clinician Unavailable Geraldine SALGUERO, Leyda Attending Clinician [phone] Stefanie Montoya RN Attending Clinician Unavailable LORENZO MARAVILLA Admitting Clinician Unavailable GREY GABRIEL Admitting Clinician Unavailable [email or web address]_Karosa mariaa_S Admitting Clinician Unavailable Scar JENKINS, Lm Adron Admitting Clinician Bill COLES Admitting Clinician Unavailable HOME MATTHEWS Admitting Clinician Unavailable ANETTE OLEA Admitting Clinician Unavailable TOMY MARIE Admitting Clinician Unavailable Tomy Marie MD Admitting Clinician Lele Rahman Admitting Clinician Unavailable Mike Lund Admitting Clinician Unavailable ELISEO ARCE Admitting Clinician Unavailable DO PORSHA STREETER Admitting Clinician Unavailable Payers Payer Name Policy Type Policy Number Effective Date Expiration Date S gabino [facility] [id number] 2012 STAR PLUS OON 00:00:00 [facility] [id number] 2019 DUAL COMPLETE HMO 00:00:00 [facility] [id number] 2019 PLUS 00:00:00 [facility] [id number] 2019 [facility] [place] STAR 00:00:00 [employer] MEDICARE ADV [id number] 2019 2019 00:00:00 00:00:00 Problems Condition Condition Condition Status Onset Resolution Last Treating Co mments Source Name Details Category Date Date Treatment Clinician Date Chest Chest Disease Active 2022-05 Univers pain, pain, 0-25 ity of unspecifie [place] type d type 00 Medical Branch Dyspnea, Dyspnea, Disease Active Unive rs unspecifie unspecifie 9-22 it y of d type d type 00:00: [place] [facility] Gastropare Gastropare Disease Active Overview : Methodi sis sis 4-[address] 00:00: [facility] 00 note l might be different from the original. Added automatic ally from request for surgery [id number] Dysphagia Dysphagia Disease Active Overview: Methodi 4-[address] 00:00: [facility] 00 note l might be different from the original. 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:00: [place] shoulder shoulder 00 Medica l arthroplas arthroplas Br anch ty ty Posttrauma Posttrauma Disease Active U nivers tic stress tic stress 09-27 it y of disorder disorder 00:00: [place] 00 Medical Branch Human Human Disease Active [...] 00 [facility] Metoclop Propensi Active [place] ramide ty to 12-12 Health adverse 00:00: reaction 00 s BUTORPHA DRUG Active Unknown-Cmnt Un matt NOL INGREDI 11-25 ity of 00:00: [place] [facility] Butorpha Drug Active Unknown - Unive rs nol Allergy See comments 11-25 ity of 00:00: [place] [facility] Sulfamet Propensi Active [place] hoxazole [...] Date Stop Date Source Natural father Diabetes [facility] Natural father Other - see comments [facility] Natural [facility] father [facility] Natural mother [facility] Social History Social Habit Start Date Stop Date Quantity Comments Source Gender identity [facility] History SDOH [facility] Alcohol Frequency Hospita l History SDOH [facility] Alcohol Std Drinks Hospit al History SDOH [facility] Exposure to 2022-04-30 2022-05-10 Yes University of SARS-CoV-2 (event) 00:00:00 10:25:00 [facility] Tobacco use and 2022-02-11 2022-02-11 Former smokeless Uni versity of exposure 00:00:00 00:00:00 tobacco user [facility] [place] Tobacco Comment 2022-02-11 2022-02-11 Smokes approx 1-2 Un iversity of 00:00:00 00:00:00 cigarettes per [place] Medi porfirio day when she Branch smokes Alcohol intake 2020-12-08 2020-12-08 Current drinker [facility] 00:00:00 00:00:00 of alcohol Hospital (finding) History of Social 2020-12-08 2020-12-[address] function 00:00:00 00:00:00 Hospital Cigarettes smoked 2020-09-05 2020-09-[address] current (pack per 00:00:00 00:00:00 Hospita l day) - Reported Cigarette 2020-09-05 2020-09-05 [facility] pack-years 00:00:00 00:00:00 Hospital Alcohol Comment 2016-09-23 2016-09-23 rare [facility] 00:00:00 00:00:00 Hospital History of tobacco 2011-09-29 User of smokeless University of use 00:00:00 tobacco [facility] Sex Assigned At [birth year] [facility] 00:00:00 00:00:00 Smoking Status Start Date Stop Date Source Ex-smoker 2022-02-11 00:00:00 2022-02-11 00:00:00 Universi ty [facility] Medications Ordered Filled Start Stop Current Ordering Indication Dosage Frequency Signature Comments Components Source Medication Medication Date Date Medication? Clinician (SIG) Name Name ondansetron 2022-05- No 4mg 4 mg, Slow Univers (ZOFRAN 06-02 IV Push, ity of (PF)) 02:15: 01:24 ONCE, 1 [place] injection 4 00 :00 dose, On Medi porfirio mg [facility] Branch 04/01/23 at 2015, JOE morpHINE (4 2022-05- No 2mg 2 mg, Slow Univers mg/mL) 06-02 IV Push, ity of injection 2 01:30: 01:24 ONCE, 1 [place] mg 00 :00 dose, On [facility] 04/01/23 at 1930, STAT KCL 2022-05 No 40meq 40 mEq, Univers (KLOR-CON 06-02 Oral, ity of M20) tablet 01:15: :23 ONCE, 1 [place] 40 mEq 00 :00 dose, On [facility] 04/01/23 at 1915, JOE NaCl 0.9% 2022-05- No 1000mL at 999 Uni vers (NS) bolus 06-01-11 mL/hr, ity of infusion 22:30: 01:12 1,000 mL, [place] 1,000 mL 00 :00 IV Medical Infusion, Branch ONCE, 1 dose, On Tue04/01/23 at 1630, JOE famotidine 2022-05 No 20mg 20 mg, Univ ers (PEPCID 06-01 Slow IV ity of (PF)) 21:45: 22:45 Push, [place] injection 00 :00 ONCE, 1 Medical 20 mg dose, On Branch [facility] 04/01/23 at 1545, JOE ondansetron 2022-05 No 4mg 4 mg, Slow Univers (ZOFRAN 06-01 IV Push, ity of (PF)) 21:45: 22:44 ONCE, 1 [place] injection 4 00 :00 dose, On Medi porfirio mg [facility] 04/01/23 at 1545, JOE morpHINE (4 2022-05 No 4mg 4 mg, Slow Univers mg/mL) 06-01 IV Push, ity of injection 4 21:45: 22:45 ONCE, 1 [place] mg 00 :00 dose, On [facility] 04/01/23 at 1545, STAT dicyclomine 2022-05 No 20mg 20 mg, Uni vers (BENTYL) 05-29 Intramuscu ity of injection 21:15: 21:25 lar, ONCE, [place] 20 mg 00 :00 1 dose, On [facility] 03/29/23 at 1515, Routine morpHINE (4 2022-05 No 4mg 4 mg, Slow Univers mg/mL) 05-29 IV Push, ity of injection 4 20:00: 19:57 ONCE, 1 [place] mg 00 :00 dose, On [facility] 03/29/23 at 1400, STAT ondansetron 2022-05 No 4mg 4 mg, Slow Univers (ZOFRAN 05-29 IV Push, ity of (PF)) 20:00: 19:57 ONCE, 1 [place] injection 4 00 :00 dose, On Medi porfirio mg [facility] 03/29/23 at 1400, JOE iohexol 2022-05- No [id number] 150mL 150 mL, Univers (OMNIPAQUE 05-29 Intravenou it y of 350 19:15: 19:15 s, ONCE, 1 [place] BULK-500 00 :00 dose, On Medical mL) Tue Branch injection 03/29/23 at 150 mL 1315, Routine proMETHazin 2022-05- No 12.5mg 12.5 mg, Univers e 05-29 IV ity of (PHENERGAN) 16:30: 16:50 Piggyback, [place] 12.5 mg in 00 :00 ONCE, 1 Medica l NaCl 0.9% dose, On Branch (NS) 50 mL Tue IV 03/29/23 at piggyback 1030, JOE NaCl 0.9% 2022-05- No 500mL at 999 Univ ers (NS) bolus 05-29 mL/hr, 500 it y of infusion 16:15: 18:17 mL, IV [place] 500 mL 00 :00 Infusion, Medical ONCE, 1 Branch dose, On e 03/29/23 at 1015, JOE morpHINE (4 2022-05 No 4mg 4 mg, Slow Univers mg/mL) 05-29 IV Push, ity of injection 4 14:45: 14:37 ONCE, 1 [place] mg 00 :00 dose, On Medical Tu Branch 03/29/23 at 0845, STAT ondansetron 2022-05 No 4mg 4 mg, Slow Univers (ZOFRAN 05-29 IV Push, ity of (PF)) 14:30: 14:34 ONCE, 1 [place] injection 4 00 :00 dose, On Medi porfirio mg [facility] Branch 03/29/23 at 0830, JOE dicyclomine 2022-05 Yes [id number] 20mg Take 1 Univers 20 mg 1-07 tablet by ity of tablet 00:00: mouth [place] 00 every 6 Medical (six) Branch hours as needed for Abdominal pain. ondansetron 2022-05 Yes [id number] 4mg Take 1 Univers 4 mg 1-07 tablet by ity of disintegrat 00:00: mouth [place] ing tablet 00 every 8 Medica l (eight) Branch hours as needed for Nausea and Vomiting (N/V). dicyclomine 2022-05 Yes [id number] 20mg Take 1 Univers 20 mg 1-07 tablet by ity of tablet 00:00: mouth [place] 00 every 6 Medical (six) Branch hours as needed for Abdominal pain. ondansetron 2022-05 Yes [id number] 4mg Take 1 Univers 4 mg 1-07 tablet by ity of disintegrat 00:00: mouth [place] ing tablet 00 every 8 Medica l (eight) Branch hours as needed for Nausea and Vomiting (N/V). atorvastati 2022-05 Yes 80mg 80 mg, Univ ers n (LIPITOR) 0-27 Oral, QHS, it y of tablet 80 02:00: First dose [place] mg 00 (after Medical last Branch modificati on) on [place] 03/17/23 at 2100, Until Discontinu ed, Routine furosemide 2022-05 Yes [id number] 40mg Take 1 U nivers 40 mg 0-27 tablet by ity of tablet 00:00: mouth in [place] 00 the Medical morning. Branch diltiazem 2022-05 Yes [id number] 180mg Take 1 U nivers XR 180 mg 0-27 capsule by ity of 24 hr 00:00: mouth in [place] capsule 00 the Medical morning. Branch furosemide 2022-05 Yes [id number] 40mg Take 1 U nivers 40 mg 0-27 tablet by ity of tablet 00:00: mouth in [place] the Medical morning. Branch diltiazem 2022-05 Yes [id number] 180mg Take 1 U nivers XR 180 mg 0-27 capsule by ity of 24 hr 00:00: mouth in [place] capsule 00 the Medical morning. Branch furosemide 2022-05 Yes [id number] 40mg Take 1 U nivers 40 mg 0-27 tablet by ity of tablet 00:00: mouth in [place] the Medical morning. Branch diltiazem 2022-05 Yes [id number] 180mg Take 1 U nivers XR 180 mg 0-27 capsule by ity of 24 hr 00:00: mouth in [place] capsule 00 the Medical morning. Branch furosemide 2022-05 Yes [id number] 40mg Take 1 U nivers 40 mg 0-27 tablet by ity of tablet 00:00: mouth in [place] the Medical morning. Branch diltiazem 2022-05 Yes [id number] 180mg Take 1 U nivers XR 180 mg 0-27 capsule by ity of 24 hr 00:00: mouth in [place] capsule 00 the Medical morning. Branch amLODIPine 2022-05 Yes 10mg Take 10 mg U nivers (NORVASC) 0-26 by mouth ity of 10 mg 19:16: daily. [place] [address] Medical Branch clonazePAM 2022-05 Yes 1mg Take 1 mg Un matt (KLONOPIN) 0-26 by mouth ity o f 1 mg tablet 19:16: at [place] [address] bedtime. Medical Branch traZODone 2022-05 Yes 50mg Take 50 mg Un matt 100 mg 0-26 by mouth ity of tablet 19:16: at [place] [address] bedtime. Medical Branch amLODIPine 2022-05 Yes 10mg Take 10 mg U nivers (NORVASC) 0-26 by mouth ity of 10 mg 19:16: daily. [place] [address] Medical Branch clonazePAM 2022-05 Yes 1mg Take 1 mg Un matt (KLONOPIN) 0-26 by mouth ity o f 1 mg tablet 19:16: at [place] [address] bedtime. Medical Branch traZODone 2022-05 Yes 50mg Take 50 mg Un matt 100 mg 0-26 by mouth ity of tablet 19:16: at [place] [address] bedtime. Medical Branch amLODIPine 2022-05 Yes 10mg Take 10 mg U nivers (NORVASC) 0-26 by mouth ity of 10 mg 19:16: daily. [place] [address] Medical Branch clonazePAM 2022-05 Yes 1mg Take 1 mg Un matt (KLONOPIN) 0-26 by mouth ity o f 1 mg tablet 19:16: at [place] [address] bedtime. Medical Branch traZODone 2022-05 Yes 50mg Take 50 mg Un matt 100 mg 0-26 by mouth ity of tablet 19:16: at [place] [address] bedtime. Medical Branch amLODIPine 2022-05 Yes 10mg Take 10 mg U nivers (NORVASC) 0-26 by mouth ity of 10 mg 19:16: daily. [place] [address] Medical Branch clonazePAM 2022-05 Yes 1mg Take 1 mg Un matt (KLONOPIN) 0-26 by mouth ity o f 1 mg tablet 19:16: at [place] [address] bedtime. Medical Branch traZODone 2022-05 Yes 50mg Take 50 mg Un matt 100 mg 0-26 by mouth ity of tablet 19:16: at [place] [address] bedtime. Medical Branch hydrALAZINE 2022-05 Yes 50mg 50 mg, Univ ers (APRESOLINE 0-26 Oral, TID, it y of ) tablet 50 19:00: First dose [place] mg 00 (after Medical last Branch modificati on) on [facility] 03/17/23 at 1400, Until Discontinu ed, Routine diltiazem 2022-05 Yes 180mg 180 mg, Univ ers XR 0-26 Oral, ity of (DILT-XR) 16:00: DAILY, [place] capsule 180 00 First dose Me dical mg (after Branch last modificati on) on [facility] 03/17/23 at 1100, Until Discontinu ed, Routine sulfur 2022-05- No [id number] 5mL 5 mL, Unive rs hexafluorid 003-17 Intravenou i ty of e microsphr 15:15: 15:15 s, ONCE, 1 [place] (LUMASON) 00 :00 dose, On Medica l injection 5 [place] Branch mL 03/17/23 at 1015, Routine
aboriginal community council member approving Restricted medication : ASHLEY GREEN KCL 2022-05- No 40meq 40 mEq, Univers (KLOR-CON 0-17 03- Oral, ity of M20) tablet 15:00: 15:47 ONCE, 1 [place] 40 mEq 00 :00 dose, On Medical [facility] Branch 03/17/23 at 1000, Routine furosemide 2022-05 Yes 40mg 40 mg, Unive rs (LASIX) 0-26 Oral, ity of tablet 40 14:00: DAILY, [place] mg 00 First dose Medical on [facility] Branch 03/17/23 at 0900, Until Discontinu ed, Routine amLODIPine 2022-05 Yes 10mg 10 mg, Unive rs (NORVASC) 0-26 Oral, ity of tablet 10 14:00: DAILY, [place] mg 00 First dose Medical on [facility] Branch 03/17/23 at 0900, Until Discontinu ed, Routine pantoprazol 2022-05 Yes 40mg 40 mg, Univ ers e 0-26 Oral, ity of (PROTONIX) 14:00: DAILY, [place] EC tablet 00 First dose Medi porfirio 40 mg on [facility] Branch 03/17/23 at 0900, Until Discontinu ed, Routine enoxaparin 2023-1 Yes 40mg 40 mg, Unive rs (LOVENOX) 0- Subcutaneo ity of injection 14:00: [place], DAILY, [place] 40 mg 00 First dose Medical on [facility] Branch 03/17/23 at 0900, Until Discontinu ed, Routine emtricitabi 2022-05 Yes 1{tbl} 1 tablet, [facility] ne-tenofovi 0-26 Oral, ity of r alafen 14:00: DAILY, [place] (DESCOVY) 00 First dose Medi porfirio tablet [address] [facility] tablet 03/17/23 at 0900, Until Discontinu ed, Routine SERTraline 2022-05 Yes 200mg 200 mg, Uni vers (ZOLOFT) 0- Oral, ity of tablet 200 14:00: DAILY, [place] mg 00 First dose Medical on [facility] 03/17/23 at 0900, Until Discontinu ed, Routine buPROPion 2022-05 Yes 150mg 150 mg, Univ ers XL 0- Oral, ity of (WELLBUTRIN 14:00: DAILY, [place] XL) tablet 00 First dose Med ical [address] [facility] 03/17/23 at 0900, Until Discontinu ed, Routine hydralAZINE 2022-05- No 25mg Take 1 Uni vers (APRESOLINE 003-17 tablet by it y of ) 25 mg 13:10: 00:00 mouth in [place] tablet 02 :00 the Medical morning. Branch metoprolol 2022-05- No 100mg Take 1 Uni vers tartrate 0-17 03- tablet by ity o f (LOPRESSOR) 13:10: 00:00 mouth in [place] 100 mg 02 :00 the Medical tablet morning Branch and 1 tablet in the evening. raltegravir 2022-05 Yes 400mg 400 mg, Un matt (ISENTRESS) 0-26 Oral, BID, it y of tablet 400 13:00: First dose [place] mg 00 on [facility] 03/17/23 Branch at 0800, Until Discontinu ed, JOE potassium 2022-05- No 20meq 20 mEq, IV Univers chloride in 0-17 03- Piggyback, i ty of water (KCL) 12:45: 14:04 ONCE, 1 [place] 20 mEq/100 00 :26 dose, On Medic al mL RTU IVPB [place] Branch 20 mEq 03/17/23 at 0745, 100 mL hydrALAZINE 2022-05- No 25mg 25 mg, Uni vers (APRESOLINE 003-17 Oral, ONCE i ty of ) tablet 25 05:15: 04:29 NOW, 1 [place] mg 00 :00 dose, On Medical [facility] Branch 03/17/23 at 0015, JOE melatonin 2022-05 Yes 3mg 3 mg, Univers (MELATIN) 0 Oral, QHS, ity of tablet 3 mg 04:45: First dose [place] 00 on Tue Medical 03/16/23 Branch at 2345, Until Discontinu ed, [...] Yes 2{puff} 2 Puff, Un matt (VENTOLIN) Inhalation ity of inhaler 2 04:26: , Q4HPRN, [place] Puff 37 Starting Medical on Tue Branch 03/16/23 at 2326, Until Discontinu ed, Routine, Wheezing, Shortness of Breath nitroglycer 2022-05- No .4mg 0.4 mg, Un matt in 003-17 Sublingual ity of (NITROSTAT) 00:15: 00:11 , ONCE, 1 [place] sublingual 00 :00 dose, On Medic al tablet 0.4 Wed Branch mg 03/16/23 at 1915, JOE nitroglycer 2022-[id number] 1 Univers in 0.4 mg 0 tablet ity of sublingual 00:00: under the [place] tablet 00 tongue Medical every 5 Branch (five) minutes as needed for Chest pain. atorvastati 2022-05 Yes [id number] 80mg Take 1 Univers n 80 mg 0-26 tablet by ity of tablet 00:00: mouth at [place] 00 bedtime. Medical Branch hydrALAZINE 2022-05 Yes [id number] 50mg Take 1 Univers 50 mg 0-26 tablet by ity of tablet 00:00: mouth in [place] 00 the Medical morning Branch and 1 tablet at noon and 1 tablet in the evening. nitroglycer 2022-[id number] 1 Univers in 0.4 mg 0-26 tablet ity of sublingual 00:00: under the [place] tablet 00 tongue Medical every 5 Branch (five) minutes as needed for Chest pain. atorvastati 2022-05 Yes [id number] 80mg Take 1 Univers n 80 mg 0-26 tablet by ity of tablet 00:00: mouth at [place] 00 bedtime. Medical Branch hydrALAZINE 2022-05 Yes [id number] 50mg Take 1 Univers 50 mg 0-26 tablet by ity of tablet 00:00: mouth in [place] 00 the Medical morning Branch and 1 tablet at noon and 1 tablet in the evening. nitroglycer 2022-[id number] 1 Univers in 0.4 mg 0-26 tablet ity of sublingual 00:00: under the [place] tablet 00 tongue Medical every 5 Branch (five) minutes as needed for Chest pain. atorvastati 2022-05 Yes [id number] 80mg Take 1 Univers n 80 mg 0-26 tablet by ity of tablet 00:00: mouth at [place] 00 bedtime. Medical Branch hydrALAZINE 2022-05 Yes [id number] 50mg Take 1 Univers 50 mg 0-26 tablet by ity of tablet 00:00: mouth in [place] 00 the Medical morning Branch and 1 tablet at noon and 1 tablet in the evening. nitroglycer 2022-[id number] 1 Univers in 0.4 mg 0-26 tablet ity of sublingual 00:00: under the [place] tablet 00 tongue Medical every 5 Branch (five) minutes as needed for Chest pain. atorvastati 2022-05 Yes [id number] 80mg Take 1 Univers n 80 mg 0-26 tablet by ity of tablet 00:00: mouth at [place] 00 bedtime. Medical Branch hydrALAZINE 2022-05 Yes [id number] 50mg Take 1 Univers 50 mg 0-26 tablet by ity of tablet 00:00: mouth in 00 the Medical morning Branch and 1 tablet at noon and 1 tablet in the evening. LORazepam 2022-05- No .5mg 0.52 mg Univ ers (ATIVAN) 003-17 (rounded ity of injection 23:45: 00:11 from 0.5 [place] 0.52 mg 00 :00 mg), Slow Medical IV Push, Branch ONCE, 1 dose, On Tue03/16/23 at 1845, JOE furosemide 2022-05- No 20mg 20 mg, Univ ers (LASIX) 003-17 Slow IV ity of injection 23:45: 00:11 Push, [place] 20 mg 00 :00 ONCE, 1 Medical dose, On Branch Tue03/16/23 at 1845, JOE ipratropium 2022-05- No 3mL 3 mL, Univ ers -albuteroL 0- Inhalation it y of (DUONEB) 19:00: 20:44 , ONCE [place] 0.5 mg-3 00 :00 NOW, 1 Medical mg(2.5 mg dose, On Branch base)/3 mL [facility] nebulizer 03/16/23 solution 3 at 1400, mL Routine morpHINE (4 2022-05- No 4mg 4 mg, Slow Univers mg/mL) 0- 10-25 IV Push, ity of injection 4 18:15: 20:43 ONCE, 1 [place] mg 00 :00 dose, On Wed Branch 03/16/23 at 1315, STAT ondansetron 2022- No 4mg 4 mg, Slow Univers (ZOFRAN 01-28 IV Push, ity of (PF)) 00:15: 23:13 ONCE, 1 [place] injection 4 00 :00 dose, On Medi porfirio mg [place] 01/27/23 Branch at 1915, JOE KCL 2022- No 40meq 40 mEq, Univers (KLOR-CON 01-28 Oral, ity of M20) tablet 00:15: 23:13 ONCE, 1 [place] 40 mEq 00 :00 dose, On Medical [place] 01/27/23 Branch at 1915, Routine dicyclomine 2022- No 20mg 20 mg, Uni vers (BENTYL) 01-28 Oral, ity of tablet 20 00:15: 23:13 ONCE, 1 [place] mg 00 :00 dose, On Medical [facility] 01/27/23 Branch at 1915, Routine NaCl 0.9% 2022- No 1000mL at 999 Uni vers (NS) bolus 01-27 mL/hr, ity of infusion 23:00: 23:59 1,000 mL, [place] 1,000 mL 00 :00 IV Medical Infusion, Branch ONCE, 1 dose, On [facility] 01/27/23 at 1800, STAT ondansetron 2022- No 4mg 4 mg, Slow Univers (ZOFRAN 01-27 IV Push, ity of (PF)) 21:00: 21:10 ONCE, 1 [place] injection 4 00 :00 dose, On Medi porfirio mg [facility] 01/27/23 Branch at 1600, JOE morpHINE (4 2022- No 4mg 4 mg, Slow Univers mg/mL) 01-27 IV Push, ity of injection 4 21:00: 21:15 ONCE, 1 [place] mg 00 :00 dose, On Medical [facility] 01/27/23 Branch at 1600, STAT iopamidol 0 2022- No [id number] 70mL 70 mL, U nivers (ISOVUE 01-27 Intravenou ity o f 370-500 mL) 20:44: 20:45 s, ONCE, 1 [place] injection 00 :00 dose, On Medica l 70 mL [facility] 01/27/23 Branch at 1600, Routine hydralAZINE 2022- No 10mg 10 mg, Uni vers (APRESOLINE 01-27 Slow IV ity of ) injection 20:00: 21:10 [place] 10 mg 00 :00 ONCE, 1 Medical dose, On Branch [facility] 01/27/23 at 1500, JOE ondansetron 2022-0 Yes [id number] 4mg Take 1 Univers 4 mg 01-27 tablet by ity of disintegrat 00:00: mouth [place] ing tablet 00 every 8 Medica l (eight) Branch hours as needed for Nausea and Vomiting (N/V). dicyclomine 2022-0 Yes [id number] 20mg Take 1 [facility] 20 mg 9-07 tablet by ity of tablet 00:00: mouth 4 [place] 00 (four) Medical times Branch daily. ondansetron 2022-0 Yes [id number] 4mg Take 1 [facility] 4 mg 9-07 tablet by ity of disintegrat 00:00: mouth [place] ing tablet 00 every 8 Medica l (eight) Branch hours as needed for Nausea and Vomiting (N/V). dicyclomine 2022-0 Yes [id number] 20mg Take 1 [facility] 20 mg 9-07 tablet by ity of tablet 00:00: mouth 4 [place] 00 (four) Medical times Branch daily. emtricitabi 2022-0 Yes [id number] Take one Univers ne-tenofovi 6-12 po daily ity of r alafen 00:00: [place] (DESCOVY) 00 Medical tablet Branch raltegravir 2022-0 Yes [id number] 400mg Take 1 Univers (ISENTRESS) 6-12 tablet by ity of 400 mg 00:00: mouth in [place] tablet 00 the Medical morning Branch and 1 tablet in the evening. emtricitabi 2022-0 Yes [id number] Take one Univers ne-tenofovi 6-12 po daily ity of r alafen 00:00: [place] (DESCOVY) 00 Medical tablet Branch raltegravir 2022-0 Yes [id number] 400mg Take 1 Univers (ISENTRESS) 6-12 tablet by ity of 400 mg 00:00: mouth in [place] tablet 00 the Medical morning Branch and 1 tablet in the evening. emtricitabi 2022-0 Yes [id number] Take one Univers ne-tenofovi 6-12 po daily ity of r alafen 00:00: [place] (DESCOVY) 00 Medical tablet Branch raltegravir 2022-0 Yes [id number] 400mg Take 1 Univers (ISENTRESS) 6-12 tablet by ity of 400 mg 00:00: mouth in [place] tablet 00 the Medical morning Branch and 1 tablet in the evening. emtricitabi 2022-0 Yes [id number] Take one Univers ne-tenofovi 6-12 po daily ity of r alafen 00:00: [place] (DESCOVY) 00 Medical tablet Branch raltegravir 3-0 Yes [id number] 400mg Take 1 Univers (ISENTRESS) 6-12 tablet by ity of 400 mg 00:00: mouth in [place] tablet 00 the Medical morning Branch and 1 tablet in the evening. emtricitabi 3-0 Yes [id number] Take one Univers ne-tenofovi 6-12 po daily ity of r alafen 00:00: [place] (DESCOVY) 00 Medical tablet Branch raltegravir 2022-0 Yes [id number] 400mg Take 1 Univers (ISENTRESS) 6-12 tablet by ity of 400 mg 00:00: mouth in [place] tablet 00 the Medical morning Branch and 1 tablet in the evening. emtricitabi 2022-0 Yes [id number] Take one Univers ne-tenofovi 6-12 po daily ity of r alafen 00:00: [place] (DESCOVY) 00 Medical tablet Branch raltegravir 2022-0 Yes [id number] 400mg Take 1 Univers (ISENTRESS) 6-12 tablet by ity of 400 mg 00:00: mouth in [place] tablet 00 the Medical morning Branch and 1 tablet in the evening. emtricitabi 2022-0 Yes [id number] Take one Univers ne-tenofovi 6-12 po daily ity of r alafen 00:00: [place] (DESCOVY) 00 Medical tablet Branch raltegravir 3-0 Yes [id number] 400mg Take 1 Univers (ISENTRESS) 6-12 tablet by ity of 400 mg 00:00: mouth in [place] tablet 00 the Medical morning Branch and 1 tablet in the evening. emtricitabi 2022-0 Yes [id number] Take one Univers ne-tenofovi 6-12 po daily ity of r alafen 00:00: [place] (DESCOVY) 00 Medical tablet Branch raltegravir 2022-0 Yes [id number] 400mg Take 1 Univers (ISENTRESS) 6-12 tablet by ity of 400 mg 00:00: mouth in [place] tablet 00 the Medical morning Branch and 1 tablet in the evening. emtricitabi 3-0 Yes [id number] Take one Univers ne-tenofovi 6-12 po daily ity of r alafen 00:00: [place] (DESCOVY) 00 Medical tablet Branch raltegravir 0 Yes [id number] 400mg Take 1 Univers (ISENTRESS) 6-12 tablet by ity of 400 mg 00:00: mouth in [place] tablet 00 the Medical morning Branch and 1 tablet in the evening. DESCOVY 0 Yes [id number] Take one Univers tablet 5-08 po daily ity of 00:00: [place] 00 Medical Branch raltegravir 0 Yes [id number] 400mg Take 1 Univers (ISENTRESS) 5-08 tablet by ity of 400 mg 00:00: mouth in [place] tablet 00 the Medical morning Branch and 1 tablet in the evening. DESCOVY 2022- No [id number] Take one Univers tablet 5-08 06-12 po daily ity of 00:00: 00:00 [place] 00 :00 Medical Branch raltegravir 2022- No [id number] 400mg Take 1 Univers (ISENTRESS) 5-08 -12 tablet by it y of 400 mg 00:00: 00:00 mouth in [place] tablet 00 :00 the Medical morning Branch and 1 tablet in the evening. emtricitabi Yes [id number] Take one Univers ne-tenofovi 4-04 po daily ity of r alafen 00:00: [place] (DESCOVY) 00 Medical tablet Branch emtricitabi 0 Yes [id number] Take one Univers ne-tenofovi 4-04 po daily ity of r alafen 00:00: [place] (DESCOVY) 00 Medical tablet Branch emtricitabi 2022- No [id number] Take one Univers ne-tenofovi 4-04 05-08 po [...] of (MAG-OX 20:00: 19:37 ONCE, 1 [place] 400) tablet 00 :00 dose, On Medi porfirio 800 mg [facility] 05/10/22 at 1400, Routine KCL 2021-05- No 40meq 40 mEq, Univers (KLOR-CON 07-11 Oral, ity of M20) tablet 19:15: 19:37 ONCE, 1 [place] 40 mEq 00 :00 dose, On Medical [facility] 05/10/22 at 1315, JOE hydralAZINE 2021-05 No 10mg 10 mg, Uni vers (APRESOLINE 07-11 Slow IV ity of ) injection 18:45: 18:42 [place] 10 mg 00 :00 ONCE, 1 Medical dose, On [facility] 05/10/22 at 1245, JOE NaCl 0.9% 2021-05 1000mL at 999 Uni vers (NS) bolus 07-11 mL/hr, ity of infusion 17:45: 20:00 1,000 mL, [place] 1,000 mL 00 :00 IV Medical Infusion, Branch ONCE, 1 dose, On [facility] 05/10/22 at 1145, JOE cefpodoxime 2021-05- No [id number] 100mg Take 1 Univers 100 mg 2-17 12-25 tablet by ity of tablet 00:00: 05:59 mouth in [place] 00 :00 [facility] and 1 tablet in the evening. Do all this for 7 days. cefpodoxime 2021-05- No [id number] 100mg Take 1 Univers 100 mg 2-17 12-25 tablet by ity of tablet 00:00: 05:59 mouth in [place] 00 :00 [facility] and 1 tablet in the evening. Do all this for 7 days. cefpodoxime 2021-05- No [id number] 100mg Take 1 Univers 100 mg 2-17 12-25 tablet by ity of tablet 00:00: 05:59 mouth in [place] 00 :00 [facility] and 1 tablet in the [...] 05/06/22 at 1515, JOE ondansetron 2021-05 Yes [id number] 1-2 U nivers 4 mg tablet 2-15 tablets ity o f 00:00: every 8 [place] 00 hours as Medical needed for Branch nausea benzonatate 2021-05 Yes [id number] 200mg Take 1 [facility] 200 mg 2-15 capsule by ity of capsule 00:00: mouth 3 [place] 00 (three) Medical times Branch daily as needed for Cough. albuterol 2021-05 Yes [id number] 2{puff} Inhale 2 Univers 90 2-15 Puffs ity of mcg/actuati 00:00: every 4 [place] on inhaler 00 (four) Medical hours as Branch needed for Wheezing or Shortness of Breath. butalbital- 2021-05 Yes [id number] 1{tbl} Take 1 [facility] acetaminoph 2-15 tablet by ity of en-caff 00:00: mouth [place] 50-325-40 00 every 4 Medical mg tablet (four) Branch hours as needed (headache) . ondansetron 2021-05 Yes [id number] 1-2 U nivers 4 mg tablet 2-15 tablets ity o f 00:00: every 8 [place] 00 hours as Medical needed for Branch nausea benzonatate 2021-05 Yes [id number] 200mg Take 1 [facility] 200 mg 2-15 capsule by ity of capsule 00:00: mouth 3 [place] 00 (three) Medical times Branch daily as needed for Cough. albuterol 2021-05 Yes [id number] 2{puff} Inhale 2 Univers 90 2-15 Puffs ity of mcg/actuati 00:00: every 4 [place] on inhaler 00 (four) Medical hours as Branch needed for Wheezing or Shortness of Breath. butalbital- 2021-05 Yes [id number] 1{tbl} Take 1 Univers acetaminoph 2-15 tablet by ity of en-caff 00:00: mouth [place] 50-325-40 00 every 4 Medical mg tablet (four) Branch hours as needed (headache) . ondansetron 2021-05 Yes [id number] 1-2 U nivers 4 mg tablet 2-15 tablets ity o f 00:00: every 8 [place] 00 hours as Medical needed for Branch nausea benzonatate 2021-05 Yes [id number] 200mg Take 1 [facility] 200 mg 2-15 capsule by ity of capsule 00:00: mouth 3 [place] 00 (three) Medical times Branch daily as needed for Cough. albuterol 2021-05 Yes [id number] 2{puff} Inhale 2 Univers 90 2-15 Puffs ity of mcg/actuati 00:00: every 4 [place] on inhaler 00 (four) Medical hours as Branch needed for Wheezing or Shortness of Breath. butalbital- 2021-05 Yes [id number] 1{tbl} Take 1 [facility] acetaminoph 2-15 tablet by ity of en-caff 00:00: mouth [place] 50-325-40 00 every 4 Medical mg tablet (four) Branch hours as needed (headache) . ondansetron 2021-05 Yes [id number] 1-2 U nivers 4 mg tablet 2-15 tablets ity o f 00:00: every 8 [place] 00 hours as Medical needed for Branch nausea benzonatate 2021-05 Yes [id number] 200mg Take 1 [facility] 200 mg 2-15 capsule by ity of capsule 00:00: mouth 3 [place] 00 (three) Medical times Branch daily as needed for Cough. albuterol 2021-05 Yes [id number] 2{puff} Inhale 2 Univers 90 2-15 Puffs ity of mcg/actuati 00:00: every 4 [place] on inhaler 00 (four) Medical hours as Branch needed for Wheezing or Shortness of Breath. butalbital- 2021-05 Yes [id number] 1{tbl} Take 1 Univers acetaminoph 2-15 tablet by ity of en-caff 00:00: mouth [place] 50-325-40 00 every 4 Medical mg tablet (four) Branch hours as needed (headache) . ondansetron 2021-05 Yes [id number] 1-2 U nivers 4 mg tablet 2-15 tablets ity o f 00:00: every 8 [place] 00 hours as Medical needed for Branch nausea benzonatate 2021-05 Yes [id number] 200mg Take 1 Univers 200 mg 2-15 capsule by ity of capsule 00:00: mouth 3 [place] 00 (three) Medical times Branch daily as needed for Cough. albuterol 2021-05 Yes [id number] 2{puff} Inhale 2 Univers 90 2-15 Puffs ity of mcg/actuati 00:00: every 4 [place] on inhaler 00 (four) Medical hours as Branch needed for Wheezing or Shortness of Breath. butalbital- 2021-05 Yes [id number] 1{tbl} Take 1 Univers acetaminoph 2-15 tablet by ity of en-caff 00:00: mouth [place] 50-325-40 00 every 4 Medical mg tablet (four) Branch hours as needed (headache) . ondansetron 2021-05 Yes [id number] 1-2 U nivers 4 mg tablet 2-15 tablets ity o f 00:00: every 8 [place] 00 hours as Medical needed for Branch nausea benzonatate 2021-05 Yes [id number] 200mg Take 1 [facility] 200 mg 2-15 capsule by ity of capsule 00:00: mouth 3 [place] 00 (three) Medical times Branch daily as needed for Cough. albuterol 2021-05 Yes [id number] 2{puff} Inhale 2 Univers 90 2-15 Puffs ity of mcg/actuati 00:00: every 4 [place] on inhaler 00 (four) Medical hours as Branch needed for Wheezing or Shortness of Breath. butalbital- 2021-05 Yes [id number] 1{tbl} Take 1 Univers acetaminoph 2-15 tablet by ity of en-caff 00:00: mouth [place] 50-325-40 00 every 4 Medical mg tablet (four) Branch hours as needed (headache) . ondansetron 2021-05 Yes [id number] 1-2 U nivers 4 mg tablet 2-15 tablets ity o f 00:00: every 8 [place] 00 hours as Medical needed for Branch nausea benzonatate 2021-05 Yes [id number] 200mg Take 1 [facility] 200 mg 2-15 capsule by ity of capsule 00:00: mouth 3 [place] 00 (three) Medical times Branch daily as needed for Cough. albuterol 2021-05 Yes [id number] 2{puff} Inhale 2 Univers 90 2-15 Puffs ity of mcg/actuati 00:00: every 4 [place] on inhaler 00 (four) Medical hours as Branch needed for Wheezing or Shortness of Breath. butalbital- 2021-05 Yes [id number] 1{tbl} Take 1 Univers acetaminoph 2-15 tablet by ity of en-caff 00:00: mouth [place] 50-325-40 00 every 4 Medical mg tablet (four) Branch hours as needed (headache) . ondansetron 2021-05 Yes [id number] 1-2 U nivers 4 mg tablet 2-15 tablets ity o f 00:00: every 8 [place] 00 hours as Medical needed for Branch nausea benzonatate 2021-05 Yes [id number] 200mg Take 1 [facility] 200 mg 2-15 capsule by ity of capsule 00:00: mouth 3 [place] 00 (three) Medical times Branch daily as needed for Cough. albuterol 2021-05 Yes [id number] 2{puff} Inhale 2 Univers 90 2-15 Puffs ity of mcg/actuati 00:00: every 4 [place] on inhaler 00 (four) Medical hours as Branch needed for Wheezing or Shortness of Breath. butalbital- 2021-05 Yes [id number] 1{tbl} Take 1 Univers acetaminoph 2-15 tablet by ity of en-caff 00:00: mouth [place] 50-325-40 00 every 4 Medical mg tablet (four) Branch hours as needed (headache) . ondansetron 2021-05 Yes [id number] 1-2 U nivers 4 mg tablet 2-15 tablets ity o f 00:00: every 8 [place] 00 hours as Medical needed for Branch nausea benzonatate 2021-05 Yes [id number] 200mg Take 1 [facility] 200 mg 2-15 capsule by ity of capsule 00:00: mouth 3 [place] 00 (three) Medical times Branch daily as needed for Cough. albuterol 2021-05 Yes [id number] 2{puff} Inhale 2 Univers 90 2-15 Puffs ity of mcg/actuati 00:00: every 4 [place] on inhaler 00 (four) Medical hours as Branch needed for Wheezing or Shortness of Breath. butalbital- 2021-05 Yes [id number] 1{tbl} Take 1 Univers acetaminoph 2-15 tablet by ity of en-caff 00:00: mouth [place] 50-325-40 00 every 4 Medical mg tablet (four) Branch hours as needed (headache) . ondansetron 2021-05 Yes [id number] 1-2 U nivers 4 mg tablet 2-15 tablets ity o f 00:00: every 8 [place] 00 hours as Medical needed for Branch nausea benzonatate 2021-05 Yes [id number] 200mg Take 1 Univers 200 mg 2-15 capsule by ity of capsule 00:00: mouth 3 [place] 00 (three) Medical times Branch daily as needed for Cough. albuterol 2021-05 Yes [id number] 2{puff} Inhale 2 Univers 90 2-15 Puffs ity of mcg/actuati 00:00: every 4 [place] on inhaler 00 (four) Medical hours as Branch needed for Wheezing or Shortness of Breath. butalbital- 2021-05 Yes [id number] 1{tbl} Take 1 Univers acetaminoph 2-15 tablet by ity of en-caff 00:00: mouth [place] 50-325-40 00 every 4 Medical mg tablet (four) Branch hours as needed (headache) . ondansetron 2021-05 Yes [id number] 1-2 U nivers 4 mg tablet 2-15 tablets ity o f 00:00: every 8 [place] 00 hours as Medical needed for Branch nausea benzonatate 2021-05 Yes [id number] 200mg Take 1 Univers 200 mg 2-15 capsule by ity of capsule 00:00: mouth 3 [place] 00 (three) Medical times Branch daily as needed for Cough. albuterol 2021-05 Yes [id number] 2{puff} Inhale 2 Univers 90 2-15 Puffs ity of mcg/actuati 00:00: every 4 [place] on inhaler 00 (four) Medical hours as Branch needed for Wheezing or Shortness of Breath. butalbital- 2021-05 Yes [id number] 1{tbl} Take 1 [facility] acetaminoph 2-15 tablet by ity of en-caff 00:00: mouth [place] 50-325-40 00 every 4 Medical mg tablet (four) Branch hours as needed (headache) . ondansetron 2021-05 Yes [id number] 1-2 U nivers 4 mg tablet 2-15 tablets ity o f 00:00: every 8 [place] 00 hours as Medical needed for Branch nausea benzonatate 2021-05 Yes [id number] 200mg Take 1 [facility] 200 mg 2-15 capsule by ity of capsule 00:00: mouth 3 00 (three) Medical times Branch daily as needed for Cough. albuterol 2021-05 Yes [id number] 2{puff} Inhale 2 [facility] 90 2-15 Puffs ity of mcg/actuati 00:00: every 4 [place] on inhaler 00 (four) Medical hours as Branch needed for Wheezing or Shortness of Breath. butalbital- 2021-05 Yes [id number] 1{tbl} Take 1 [facility] acetaminoph 2-15 tablet by ity of en-caff 00:00: mouth [place] 50-325-40 00 every 4 Medical mg tablet (four) Branch hours as needed (headache) . ondansetron 2021-05 Yes [id number] 1-2 U nivers 4 mg tablet 2-15 tablets ity o f 00:00: every 8 [place] 00 hours as Medical needed for Branch nausea benzonatate 2021-05 Yes [id number] 200mg Take 1 [facility] 200 mg 2-15 capsule by ity of capsule 00:00: mouth 3 [place] 00 (three) Medical times Branch daily as needed for Cough. albuterol 2021-05 Yes [id number] 2{puff} Inhale 2 [facility] 90 2-15 Puffs ity of mcg/actuati 00:00: every 4 [place] on inhaler 00 (four) Medical hours as Branch needed for Wheezing or Shortness of Breath. butalbital- 2021-05 Yes [id number] 1{tbl} Take 1 [facility] acetaminoph 2-15 tablet by ity of en-caff 00:00: mouth [place] 50-325-40 00 every 4 Medical mg tablet (four) Branch hours as needed (headache) . albuterol 2021-05 Yes [id number] 2{puff} Inhale 2 [facility] 90 2-15 Puffs ity of mcg/actuati 00:00: every 4 [place] on inhaler 00 (four) Medical hours as Branch needed for Wheezing or Shortness of Breath. albuterol 2021-05 Yes [id number] 2{puff} Inhale 2 [facility] 90 2-15 Puffs ity of mcg/actuati 00:00: every 4 [place] on inhaler 00 (four) Medical hours as Branch needed for Wheezing or Shortness of Breath. albuterol 2021-05 Yes [id number] 2{puff} Inhale 2 [facility] 90 2-15 Puffs ity of mcg/actuati 00:00: every 4 [place] inhaler 00 (four) Medical hours as Branch needed for Wheezing or Shortness of Breath. albuterol 2021-05 Yes [id number] 2{puff} Inhale 2 [facility] 90 2-15 Puffs ity of mcg/actuati 00:00: every 4 [place] on inhaler 00 (four) Medical hours as Branch needed for Wheezing or Shortness of Breath. albuterol 2021-05 Yes [id number] 2{puff} Inhale 2 [facility] 90 2-15 Puffs ity of mcg/actuati 00:00: every 4 [place] on inhaler 00 (four) Medical hours as Branch needed for Wheezing or Shortness of Breath. nirmatrelvi 2021-05- No [id number] 2{tbl} Take 2 Univers r-ritonavir 2-15 12-21 tablets by i ty of (PAXLOVID, 00:00: 05:59 mouth in [place],) 300 00 :00 the Medical mg (150 mg morning Branch x 2)-100 mg and 2 tablet tablets in the evening. Do all this for 5 days. [facility] 2021-05- No [id number] 2{tbl} Take 2 Univers r-ritonavir 2-15 12-21 tablets by i ty of (PAXLOVID, 00:00: 05:59 [place] [facility],) 300 00 :00 the Medical mg (150 mg morning Branch x 2)-100 mg and 2 tablet tablets in the evening. Do all this for 5 days. [facility] 2021-05- No [id number] 2{tbl} Take 2 Univers r-ritonavir 2-15 12-21 tablets by i ty of (PAXLOVID, 00:00: 05:59 mouth in [place] 300 00 :00 the Medical mg (150 mg morning Branch x 2)-100 mg and 2 tablet tablets in the evening. Do all this for 5 days. [facility] 2021-05- No [id number] 2{tbl} Take 2 Univers r-ritonavir 2-15 12-21 tablets by i ty of (PAXLOVID, 00:00: 05:59 mouth in [place] [facility],) 300 00 :00 the Medical mg (150 mg morning Branch x 2)-100 mg and 2 tablet tablets in the evening. Do all this for 5 days. ondansetron 2021-05- No 4mg 4 mg, Univ ers (ZOFRAN-ODT 06-23 Oral, ity of ) 22:45: 21:53 ONCE, 1 [place] disintegrat 00 :00 dose, On Medi porfirio ing tablet [place] Branch 4 mg 04/22/22 at 1645, Routine amoxicillin 2021-05 Yes [id number] 1{tbl} Take 1 Univers -clavulanat 06-23 [id number] tablet by i ty of e 875-125 00:00: mouth [place] mg per 00 every 12 Medical tablet (twelve) Branch hours. ondansetron 2021-05 Yes [id number] 4mg Take 1 Univers 4 mg 2-01 [id number] tablet by ity of disintegrat 00:00: mouth [place] ing tablet 00 every 8 Medica l (eight) Branch hours as needed for Nausea and Vomiting (N/V). amoxicillin 2021-05 Yes [id number] 1{tbl} Take 1 Univers -clavulanat 2-01 [id number] tablet by i ty of e 875-125 00:00: mouth [place] mg per 00 every 12 Medical tablet (twelve) Branch hours. ondansetron 2021-05 Yes [id number] 4mg Take 1 [facility] 4 mg 2-01 [id number] tablet by ity of disintegrat 00:00: mouth [place] ing tablet 00 every 8 Medica l (eight) Branch hours as needed for Nausea and Vomiting (N/V). amoxicillin 2021-05 Yes [id number] 1{tbl} Take 1 Univers -clavulanat 2-01 [id number] tablet by i ty of e 875-125 00:00: mouth [place] mg per 00 every 12 Medical tablet (twelve) Branch hours. ondansetron 2021-05 Yes [id number] 4mg Take 1 [facility] 4 mg 2-01 [id number] tablet by ity of disintegrat 00:00: mouth [place] ing tablet 00 every 8 Medica l (eight) Branch hours as needed for Nausea and Vomiting (N/V). amoxicillin 2021-05 Yes [id number] 1{tbl} Take 1 Univers -clavulanat 2-01 [id number] tablet by i ty of e 875-125 00:00: mouth [place] mg per 00 every 12 Medical tablet (twelve) Branch hours. ondansetron 2021-05 Yes [id number] 4mg Take 1 Univers 4 mg 2-01 [id number] tablet by ity of disintegrat 00:00: mouth [place] ing tablet 00 every 8 Medica l (eight) Branch hours as needed for Nausea and Vomiting (N/V). amoxicillin 2021-05 Yes [id number] 1{tbl} Take 1 Univers -clavulanat 2-01 [id number] tablet by i ty of e 875-125 00:00: mouth [place] mg per 00 every 12 Medical tablet (twelve) Branch hours. ondansetron 2021-05 Yes [id number] 4mg Take 1 Univers 4 mg 2-01 [id number] tablet by ity of disintegrat 00:00: mouth [place] ing tablet 00 every 8 Medica l (eight) Branch hours as needed for Nausea and Vomiting (N/V). amoxicillin 2021-05 Yes [id number] 1{tbl} Take 1 Univers -clavulanat 2-01 [id number] tablet by i ty of e 875-125 00:00: mouth [place] mg per 00 every 12 Medical tablet (twelve) Branch hours. ondansetron 2021-05 Yes [id number] 4mg Take 1 Univers 4 mg 2-01 [id number] tablet by ity of disintegrat 00:00: mouth [place] ing tablet 00 every 8 Medica l (eight) Branch hours as needed for Nausea and Vomiting (N/V). amoxicillin 2021-05 Yes [id number] 1{tbl} Take 1 Univers -clavulanat 2-01 [id number] tablet by i ty of e 875-125 00:00: mouth [place] mg per 00 every 12 Medical tablet (twelve) Branch hours. ondansetron 2021-05 Yes [id number] 4mg Take 1 Univers 4 mg 2-01 [id number] tablet by ity of disintegrat 00:00: mouth [place] ing tablet 00 every 8 Medica l (eight) Branch hours as needed for Nausea and Vomiting (N/V). amoxicillin 2021-05 Yes [id number] 1{tbl} Take 1 Univers -clavulanat 2-01 [id number] tablet by i ty of e 875-125 00:00: mouth [place] mg per 00 every 12 Medical tablet (twelve) Branch hours. ondansetron 2021-05 Yes [id number] 4mg Take 1 [facility] 4 mg 2-01 [id number] tablet by ity of disintegrat 00:00: mouth [place] ing tablet 00 every 8 Medica l (eight) Branch hours as needed for Nausea and Vomiting (N/V). amoxicillin 2021-05 Yes [id number] 1{tbl} Take 1 Univers -clavulanat 2-01 [id number] tablet by i ty of e 875-125 00:00: mouth [place] mg per 00 every 12 Medical tablet (twelve) Branch hours. ondansetron 2021-05 Yes [id number] 4mg Take 1 [facility] 4 mg 2-01 [id number] tablet by ity of disintegrat 00:00: mouth [place] ing tablet 00 every 8 Medica l (eight) Branch hours as needed for Nausea and Vomiting (N/V). amoxicillin 2021-05 Yes [id number] 1{tbl} Take 1 Univers -clavulanat 2-01 [id number] tablet by i ty of e 875-125 00:00: mouth [place] mg per 00 every 12 Medical tablet (twelve) Branch hours. ondansetron 2021-05 Yes [id number] 4mg Take 1 Univers 4 mg 2-01 [id number] tablet by ity of disintegrat 00:00: mouth [place] ing tablet 00 every 8 Medica l (eight) Branch hours as needed for Nausea and Vomiting (N/V). amoxicillin 2021-05 Yes [id number] 1{tbl} Take 1 Univers -clavulanat 2-01 [id number] tablet by i ty of e 875-125 00:00: mouth [place] mg per 00 every 12 Medical tablet (twelve) Branch hours. ondansetron 2021-05 Yes [id number] 4mg Take 1 Univers 4 mg 2- [id number] tablet by ity of disintegrat 00:00: mouth [place] ing tablet 00 every 8 Medica l (eight) Branch hours as needed for Nausea and Vomiting (N/V). amoxicillin 2021-05 Yes [id number] 1{tbl} Take 1 Univers -clavulanat 2-01 [id number] tablet by i ty of e 875-125 00:00: mouth [place] mg per 00 every 12 Medical tablet (twelve) Branch hours. ondansetron 2021-05 Yes [id number] 4mg Take 1 Univers 4 mg 2-01 [id number] tablet by ity of disintegrat 00:00: mouth [place] ing tablet 00 every 8 Medica l (eight) Branch hours as needed for Nausea and Vomiting (N/V). amoxicillin 2021-05 Yes [id number] 1{tbl} Take 1 Univers -clavulanat 2-01 [id number] tablet by i ty of e 875-125 00:00: mouth [place] mg per 00 every 12 Medical tablet (twelve) Branch hours. ondansetron 2021-05 Yes [id number] 4mg Take 1 [facility] 4 mg 2-01 [id number] tablet by ity of disintegrat 00:00: mouth [place] ing tablet 00 every 8 Medica l (eight) Branch hours as needed for Nausea and Vomiting (N/V). amoxicillin 2021-05 Yes [id number] 1{tbl} Take 1 Univers -clavulanat 2- [id number] tablet by i ty of e 875-125 00:00: mouth [place] mg per 00 every 12 Medical tablet (twelve) Branch hours. ondansetron 2021-05 Yes [id number] 4mg Take 1 Univers 4 mg 2- [id number] tablet by ity of disintegrat 00:00: mouth [place] ing tablet 00 every 8 Medica l (eight) Branch hours as needed for Nausea and Vomiting (N/V). amoxicillin 2021-05 Yes [id number] 1{tbl} Take 1 Univers -clavulanat 2- [id number] tablet by i ty of e 875-125 00:00: mouth [place] mg per 00 every 12 Medical tablet (twelve) Branch hours. ondansetron 2021-05 Yes [id number] 4mg Take 1 Univers 4 mg 2- [id number] tablet by ity of disintegrat 00:00: mouth [place] ing tablet 00 every 8 Medica l (eight) Branch hours as needed for Nausea and Vomiting (N/V). ondansetron 2021-05 Yes [id number] 4mg Take 1 [facility] 4 mg 2- [id number] tablet by ity of disintegrat 00:00: mouth [place] ing tablet 00 every 8 Medica l (eight) Branch hours as needed for Nausea and Vomiting (N/V). ondansetron 2021-05 Yes [id number] 4mg Take 1 [facility] 4 mg 2- [id number] tablet by ity of disintegrat 00:00: mouth [place] ing tablet 00 every 8 Medica l (eight) Branch hours as needed for Nausea and Vomiting (N/V). ondansetron 2021-05 Yes [id number] 4mg Take 1 [facility] 4 mg 2- [id number] tablet by ity of disintegrat 00:00: mouth [place] ing tablet 00 every 8 Medica l (eight) Branch hours as needed for Nausea and Vomiting (N/V). ondansetron 2021-05- No [id number] 4mg Take 1 [facility] 4 mg 2-06 02- [id number] tablet by ity of disintegrat 00:00: 00:00 mouth [place] tablet 00 :00 every 8 Medica l (eight) Branch hours as needed for Nausea and Vomiting (N/V). zoster 2021-05- No [id number] .5mL 0.5 mL by Univers vaccine, 0-05 03- 9104 [facility] ity of recombinant 00:00: 04:59 lar route [place] (SHINGRIX, 00 :00 once now Medic al PF,) for 1 Branch injection dose. And repeat in 2-6 months zoster 2021-05- No [id number] .5mL 0.5 mL by Univers vaccine, 0-05 03- 9104 Intramus[facility] ity of recombinant 00:00: 04:59 lar route [place] (SHINGRIX, 00 :00 once now Medic al PF,) for 1 Branch injection dose. And repeat in 2-6 months zoster 2021-05- No [id number] .5mL 0.5 mL by Univers vaccine, 0-05 [...] o f 1 mg tablet 19:28: at [place] [address] bedtime. Medical Branch traZODone 0 Yes 50mg Take 50 mg Un matt 100 mg 9-27 by mouth ity of tablet 19:28: at [place] [address] bedtime. Medical Branch hydralAZINE 2022-0 Yes 25mg [...] o f 1 mg tablet 19:28: at [place] [address] bedtime. Medical Branch traZODone 2-0 Yes 50mg Take 50 mg Un matt 100 mg 9-27 by mouth ity of tablet 19:28: at [place] [address] bedtime. Medical Branch hydralAZINE 2-0 Yes 25mg [...] o f 1 mg tablet 19:28: at [place] [address] bedtime. Medical Branch traZODone 2021-0 Yes 50mg Take 50 mg Un matt 100 mg 9-27 by mouth ity of tablet 19:28: at [place] [address] bedtime. Medical Branch hydralAZINE 2021-0 Yes 25mg [...] o f 1 mg tablet 19:28: at [place] [address] bedtime. Medical Branch traZODone 2021-0 Yes 50mg Take 50 mg Un matt 100 mg 9-27 by mouth ity of tablet 19:28: at [place] [address] bedtime. Medical Branch hydralAZINE 2021-0 Yes 25mg [...] o f 1 mg tablet 19:28: at [place] [address] bedtime. Medical Branch traZODone 2021-0 Yes 50mg Take 50 mg Un matt 100 mg 9-27 by mouth ity of tablet 19:28: at [place] [address] bedtime. Medical Branch hydralAZINE 2021-0 Yes 25mg [...] o f 1 mg tablet 19:28: at [place] [address] bedtime. Medical Branch traZODone 2021-0 Yes 50mg Take 50 mg Un matt 100 mg 9-27 by mouth ity of tablet 19:28: at [place] [address] bedtime. Medical Branch hydralAZINE 2021-0 Yes 25mg [...] o f 1 mg tablet 19:28: at [place] [address] bedtime. Medical Branch traZODone 2021-0 Yes 50mg Take 50 mg Un matt 100 mg 9-27 by mouth ity of tablet 19:28: at [place] [address] bedtime. Medical Branch hydralAZINE 2021-0 Yes 25mg [...] ity of 10 mg 19:28: daily. [place] tablet 04 Medical Branch clonazePAM 0 Yes 1mg Take 1 mg Un matt (KLONOPIN) 9-27 by mouth ity o f 1 mg tablet 19:28: at [place] [address] bedtime. Medical Branch traZODone 2021-0 Yes 50mg Take 50 mg Un matt 100 mg 9-27 by mouth ity of tablet 19:28: at [place] [address] bedtime. Medical Branch hydralAZINE 2021-0 Yes 25mg [...] o f 1 mg tablet 19:28: at [place] [address] bedtime. Medical Branch traZODone 2021-0 Yes 50mg Take 50 mg Un matt 100 mg 9-27 by mouth ity of tablet 19:28: at [place] [address] bedtime. Medical Branch hydralAZINE 2021-0 Yes 25mg [...] 100 mg 04 (two) Medical tablet times [place] daily. amLODIPine 2021-0 Yes 10mg Take 10 mg U nivers (NORVASC) 9- by mouth ity of 10 mg 19:28: daily. [place] tablet 04 Medical Branch clonazePAM 2021-0 Yes 1mg Take 1 mg Un matt (KLONOPIN) 9- by mouth ity o f 1 mg tablet 19:28: at [place] [address] bedtime. Medical Branch traZODone 2021-0 Yes 50mg Take 50 mg Un matt 100 mg 9-27 by mouth ity of tablet 19:28: at [place] [address] bedtime. Medical Branch hydralAZINE 2021-0 Yes 25mg [...] o f 1 mg tablet 19:28: at [place] [address] bedtime. Medical Branch traZODone 2021-0 Yes 50mg Take 50 mg Un matt 100 mg 9-27 by mouth ity of tablet 19:28: at [place] [address] bedtime. Medical Branch hydralAZINE 2021-0 Yes 25mg [...] 100 mg 04 (two) Medical tablet times [place] daily. amLODIPine 2021-0 Yes 10mg Take 10 mg U nivers (NORVASC) 9-27 by mouth ity of 10 mg 19:28: daily. [place] tablet 04 Medical Branch clonazePAM 2021-0 Yes 1mg Take 1 mg Un matt (KLONOPIN) 9-27 by mouth ity o f 1 mg tablet 19:28: at [place] [address] bedtime. Medical Branch traZODone 2021-0 Yes 50mg Take 50 mg Un matt 100 mg 9-27 by mouth ity of tablet 19:28: at [place] [address] bedtime. Medical Branch hydralAZINE 2021-0 Yes 25mg [...] o f 1 mg tablet 19:28: at [place] [address] bedtime. Medical Branch traZODone 2021-0 Yes 50mg Take 50 mg Un matt 100 mg 9-27 by mouth ity of tablet 19:28: at [place] [address] bedtime. Medical Branch hydralAZINE 2021-0 Yes 25mg [...] o f 1 mg tablet 19:28: at [place] [address] bedtime. Medical Branch traZODone 2022-0 Yes 50mg Take 50 mg Un matt 100 mg 9-27 by mouth ity of tablet 19:28: at [place] [address] bedtime. Medical Branch hydralAZINE 2-0 Yes 25mg [...] o f 1 mg tablet 19:28: at [place] [address] bedtime. Medical Branch traZODone 2021-0 Yes 50mg Take 50 mg Un matt 100 mg 9-27 by mouth ity of tablet 19:28: at [place] [address] bedtime. Medical Branch hydralAZINE 2021-0 Yes 25mg [...] ity of 10 mg 19:28: daily. [place] tablet 04 Medical Branch clonazePAM 2021-0 Yes 1mg Take 1 mg Un matt (KLONOPIN) 9-27 by mouth ity o f 1 mg tablet 19:28: at [place] [address] bedtime. Medical Branch traZODone 2-0 Yes 50mg Take 50 mg Un matt 100 mg 9-27 by mouth ity of tablet 19:28: at [place] [address] bedtime. Medical Branch hydralAZINE 2-0 Yes 25mg [...] o f 1 mg tablet 19:28: at [place] [address] bedtime. Medical Branch traZODone 2-0 Yes 50mg Take 50 mg Un matt 100 mg 9-27 by mouth ity of tablet 19:28: at [place] [address] bedtime. Medical Branch hydralAZINE 2-0 Yes 25mg [...] o f 1 mg tablet 19:28: at [place] [address] bedtime. Medical Branch traZODone 2021-0 Yes 50mg Take 50 mg Un matt 100 mg 9-27 by mouth ity of tablet 19:28: at [place] [address] bedtime. Medical Branch hydralAZINE 2021-0 Yes 25mg [...] o f 1 mg tablet 19:28: at [place] [address] bedtime. Medical Branch traZODone 2021-0 Yes 50mg Take 50 mg Un matt 100 mg 9-27 by mouth ity of tablet 19:28: at [place] [address] bedtime. Medical Branch hydralAZINE 2021-0 Yes 25mg [...] o f 1 mg tablet 19:28: at [place] [address] bedtime. Medical Branch traZODone 2021-0 Yes 50mg Take 50 mg Un matt 100 mg 9-27 by mouth ity of tablet 19:28: at [place] [address] bedtime. Medical Branch hydralAZINE 2021-0 Yes 25mg [...] o f 1 mg tablet 19:28: at [place] [address] bedtime. Medical Branch traZODone 2021-0 Yes 50mg Take 50 mg Un matt 100 mg 9- by mouth ity of tablet 19:28: at [place] [address] bedtime. Medical Branch hydralAZINE 2021-0 Yes 25mg [...] o f 1 mg tablet 19:28: at [place] [address] bedtime. Medical Branch traZODone 2021-0 Yes 50mg Take 50 mg Un matt 100 mg 9-27 by mouth ity of tablet 19:28: at [place] [address] bedtime. Medical Branch hydralAZINE 2021-0 Yes 25mg [...] 19:28: daily. [place] tablet Medical Branch clonazePAM 2021-0 Yes 1mg Take 1 mg Un matt (KLONOPIN) 9-27 by mouth ity o f 1 mg tablet 19:28: at [place] [address] bedtime. Medical Branch traZODone 2021-0 Yes 50mg Take 50 mg Un matt 100 mg 9-27 by mouth ity of tablet 19:28: at [place] [address] bedtime. Medical Branch hydralAZINE 2021-0 Yes 25mg [...] 10 mg 19:28: daily. [place] tablet [address] [facility] clonazePAM Yes 1mg Take 1 mg Un matt (KLONOPIN) 02-16 by mouth ity o f 1 mg tablet 19:28: at [place] [address] bedtime. [facility] Branch traZODone Yes 50mg Take 50 mg Un matt 100 mg 02-16 by mouth ity of tablet 19:28: at [place] [address] bedtime. [facility] Branch cefpodoxime 2021- No [id number] 200mg Take 1 Univers 200 mg 02-16 tablet by ity of tablet 00:00: 04:59 mouth in [place] 00 :00 the Medical morning Branch and 1 tablet in the evening. Do all this for 3 days. cefpodoxime 2021- No [id number] 200mg Take 1 [facility] 200 mg 02-16 tablet by ity of tablet 00:00: 04:59 mouth in [place] 00 :00 the [facility] morning [place] and 1 tablet in the evening. Do all this for 3 days. haloperidol 2021- No 2mg 2 mg, Slow Univers lactate 02-15 IV Push, ity of (HALDOL) 09:00: 09:12 ONCE, 1 [place] injection 2 00 :00 dose, On Medi porfirio mg [facility] 02/15/22 at 0400, Routine hydroCHLORO Yes 25mg 25 mg, [facility] thiazide 9-25 Oral, ity of (ESIDRIX) 14:00: DAILY, [place] capsule 25 00 First dose Med ical mg on [facility] 02/14/22 at 0900, Until Discontinu ed, Routine butalbital- Yes 1{tbl} 1 tablet, Univers acetaminoph 9-24 Oral, ity of en-caff 18:46: Q6HPRN, [place] (ESGIC) 06 Starting Medical 50-325-40 on [facility] Branch mg tablet 1 02/13/22 at tablet 1346, Until Discontinu ed, Routine, headaches dicyclomine Yes 10mg 10 mg, Univ ers (BENTYL) 9-24 Oral, QID, ity o f capsule 10 17:00: First dose [place] mg 00 on [facility] Medical 02/13/22 at Branch [...] 2,000 mg in 17:00: 18:24 Piggyback, [place] NaCl 0.9% 00 :00 Q24H ABX, Medic [...] [place] Branch 02/11/22 at 1645, Routine nitroglycer Yes [...] First dose [place] mg 00 on [facility] Medical 02/11/22 at Branch 1300, Until Discontinu ed, Routine raltegravir 2021-0 Yes 400mg 400 mg, Un matt (ISENTRESS) 02-11 Oral, BID, it y of tablet 400 18:00: First dose [place] mg 00 on [facility] Medical 02/11/22 at Branch 1300, Until Discontinu ed, JOE metoprolol 2021-0 Yes 100mg 100 mg, Uni vers tartrate 02-11 Oral, BID, ity o f (LOPRESSOR) 18:00: First dose [place] tablet 100 00 on [facility] Medical mg 02/11/22 at Branch 1300, Until Discontinu ed, Routine lisinopriL 2021-0 Yes 40mg 40 mg, Unive rs (PRINIVIL,Z 02-11 Oral, BID, it y of ESTRIL) 18:00: [place] tablet 40 00 on [facility] Medical mg 02/11/22 at Branch 1300, Until Discontinu ed, Routine emtricitabi 2021-0 Yes 1{tbl} 1 tablet, Univers ne-tenofovi 02-11 Oral, ity of r alafen 18:00: DAILY, [place] (DESCOVY) 00 First dose Medi porfirio tablet [address] [facility] tablet 02/11/22 at 1300, Until Discontinu ed, Routine ipratropium 0 Yes .5mg 0.5 mg, Uni vers (ATROVENT) 02-11 Inhalation ity of 0.02 % 17:57: , QIDPRN, [place] nebulizer 10 Starting Medica l solution on [facility] Branch 0.5 mg 02/11/22 at 1257, Until Discontinu ed, Routine, Wheezing, Shortness of Breath amLODIPine 2021-0 Yes 10mg 10 mg, Unive rs (NORVASC) 02-11 Oral, ity of tablet 10 17:30: DAILY, [place] mg 00 First dose Medical (after Branch last modificati on) on [facility] 02/11/22 at 1230, Until Discontinu ed, Routine hydrALAZINE 2021-0 2022- No 25mg 25 mg, Uni vers (APRESOLINE 02-11 Oral, ity of ) tablet 25 17:30: 12:54 DAILY, [place] mg 00 :55 First dose Medical (after Branch last modificati on) on [place] 02/11/22 at 1230, Until Discontinu ed, Routine HYDROcodone 2- No 1{tbl} 1 tablet, Univers -acetaminop 02-11 Oral, ity of hen (NORCO 14:11: 17:37 Q6HPRN, [place] 5) 5-325 mg 03 :24 Starting Medi porfirio tablet 1 on [facility] Branch tablet 02/11/22 at 0911, Until 02/12/22 at 1237, Routine, Pain (scale 7-10) melatonin Yes 3mg 3 mg, Univers (MELATIN) 02-11 Oral, ity of tablet 3 mg 14:08: QHSPRN, [place] 17 Starting Medical on [facility] Branch 02/11/22 at 0908, Until Discontinu ed, Routine, Insomnia acetaminoph 2021- No 1{tbl} 1 tablet, Univers en-codeine 02-11 Oral, ity of (TYLENOL 14:06: 17:37 Q6HPRN, [place] #3) 300-30 19 :24 Starting Medic al mg tablet 1 on [facility] Branch tablet 02/11/22 at 0906, Until Tue02/12/22 at 1237, Routine, Pain (scale 4-6) sennosides- Yes 1{tbl} 1 tablet, Univers docusate 02-11 Oral, ity of sodium 14:06: QDAILYPRN, [place] (SENOKOT-S) 09 Starting Medi porfirio 8.6-[address] [facility] per tablet 02/11/22 at 1 tablet 0906, Until Discontinu ed, Routine, Constipati on ondansetron 0 Yes 4mg 4 mg, Slow Univers (ZOFRAN 02-11 IV Push, ity of (PF)) 14:05: Q6HPRN, [place] injection 4 59 Starting Medi porfirio mg on [facility] Branch 02/11/22 at 0905, Until Discontinu ed, Routine, Nausea and Vomiting (N/V) acetaminoph 2022-0 Yes 650mg 650 mg, Un matt en 02-11 Oral, ity of (TYLENOL) 14:04: Q6HPRN, [place] tablet 650 37 Starting Medic al mg [...] of ) 25 mg 09:10: daily. [place] tablet 54 Medical Branch amLODIPine 0 Yes [...] of therapy: 72 hours iopamidol 2021- No [id number] 60mL 60 mL, Univers (ISOVUE 02-11 Intravenou [...] 02/11/22 at 0015, JOE emtricitabi 0 Yes [id number] Take one Univers ne-tenofovi 9-12 po daily ity of r alafen 00:00: [place] (DESCOVY) 00 Medical tablet Branch emtricitabi 0 Yes [id number] Take one Univers ne-tenofovi 9-12 po daily ity of r alafen 00:00: [place] (DESCOVY) 00 Medical tablet Branch emtricitabi 2021-0 Yes [id number] Take one Univers ne-tenofovi 9-12 po daily ity of r alafen 00:00: [place] (DESCOVY) 00 Medical tablet Branch emtricitabi 0 Yes [id number] Take one Univers ne-tenofovi 9-12 po daily ity of r alafen 00:00: [place] (DESCOVY) 00 Medical tablet Branch emtricitabi 0 Yes [id number] Take one Univers ne-tenofovi 9-12 po daily ity of r alafen 00:00: [place] (DESCOVY) 00 Medical tablet Branch emtricitabi Yes [id number] Take one Univers ne-tenofovi 9-12 po daily ity of r alafen 00:00: [place] (DESCOVY) 00 Medical tablet Branch emtricita Yes [id number] Take one Univers ne-tenofovi 9-12 po daily ity of r alafen 00:00: [place] (DESCOVY) 00 Medical tablet Branch emtricita Yes [id number] Take one Univers ne-tenofovi 9-12 po daily ity of r alafen 00:00: [place] (DESCOVY) 00 Medical tablet Branch [facility] [id number] Take one Univers ne-tenofovi 9-12 po daily ity of r alafen 00:00: [place] (DESCOVY) 00 Medical tablet Branch emtricita Yes [id number] Take one Univers ne-tenofovi 9-12 po daily ity of r alafen 00:00: [place] (DESCOVY) 00 Medical tablet [facility] [id number] Take one Univers ne-tenofovi 9-12 po daily ity of r alafen 00:00: [place] (DESCOVY) 00 Medical tablet [facility] [id number] Take one Univers ne-tenofovi 9-12 po daily ity of r alafen 00:00: [place] (DESCOVY) 00 Medical tablet Branch emtricita Yes [id number] Take one Univers ne-tenofovi 9-12 po daily ity of r alafen 00:00: [place] (DESCOVY) 00 Medical tablet Branch emtricita Yes [id number] Take one Univers ne-tenofovi 9-12 po daily ity of r alafen 00:00: [place] (DESCOVY) 00 Medical tablet Branch emtricita Yes [id number] Take one Univers ne-tenofovi 9-12 po daily ity of r alafen 00:00: [place] (DESCOVY) 00 Medical tablet Branch emtricita Yes [id number] Take one Univers ne-tenofovi 9-12 po daily ity of r alafen 00:00: [place] (DESCOVY) 00 Medical tablet Branch emtricitabi 0 Yes [id number] Take one Univers ne-tenofovi 9-12 po daily ity of r alafen 00:00: [place] (DESCOVY) 00 Medical tablet Branch emtricitabi 0 3- No [id number] Take one Univers ne-tenofovi 9-12 04-04 po daily ity of r alafen 00:00: 00:00 [place] (DESCOVY) 00 :00 Medical tablet Branch emtricitabi 3- No [id number] Take one Univers ne-tenofovi -12 04-04 po daily ity of r alafen 00:00: 00:00 [place] (DESCOVY) 00 :00 Medical tablet Branch naproxen 2021-0 Yes [id number] 500mg Take 1 U nivers (NAPROSYN) 7-24 tablet by ity of 500 mg 00:00: mouth in [place] tablet 00 the Medical morning Branch and 1 tablet in the evening. Take with meals. methocarbam 2021-0 Yes [id number] 500mg Take 1 Univers oL 500 mg 7-24 tablet by ity o f tablet 00:00: mouth 4 [place] ([facility]) Medical times [place] daily. naproxen 2021-0 Yes [id number] 500mg Take 1 U nivers (NAPROSYN) 7-24 tablet by ity of 500 mg 00:00: mouth in [place] tablet 00 the Medical morning Branch and 1 tablet in the evening. Take with meals. methocarbam 2021-0 Yes [id number] 500mg Take 1 Univers oL 500 mg 7-24 tablet by ity o f tablet 00:00: mouth 4 [place] ([facility]) Medical times Branch daily. naproxen 2021-0 Yes [id number] 500mg Take 1 U nivers (NAPROSYN) 7-24 tablet by ity of 500 mg 00:00: mouth in [place] tablet 00 the Medical morning Branch and 1 tablet in the evening. Take with meals. methocarbam 2021-0 Yes [id number] 500mg Take 1 Univers oL 500 mg 7-24 tablet by ity o f tablet 00:00: mouth 4 [place] ([facility]) Medical times Branch daily. naproxen 2021-0 2- No [id number] 500mg Take 1 Univers (NAPROSYN) 7-24 10-14 tablet by ity of 500 mg 00:00: 00:00 mouth in [place] tablet 00 :00 the Medical morning Branch and 1 tablet in the evening. Take with meals. methocarbam No [id number] 500mg Take 1 Univers oL 500 mg 12-13-14 tablet by ity of tablet 00:00: 00:00 mouth 4 [place] 00 :00 (four) Medical times Branch daily. naproxen No [id number] 500mg Take 1 Univers (NAPROSYN) 12-13-14 tablet by ity of 500 mg 00:00: 00:00 mouth in [place] tablet 00 :00 the Medical morning Branch and 1 tablet in the evening. Take with meals. methocarbam No [id number] 500mg Take 1 Univers oL 500 mg 12-1314 tablet by ity of tablet 00:00: 00:00 mouth 4 [place] 00 :00 (four) Medical times Branch daily. esomeprazol No 40mg Take 40 mg Univers e (NEXIUM) 11-20 by mouth 2 it y of 40 mg 09:12: 00:00 (two) [place] capsule 03 :00 times Medical daily. Branch amiodarone 2021- No 100mg Take 100 U nivers 100 mg 11-20 mg by ity of tablet 09:11: 00:00 mouth [place] 57 :00 daily. Medical Branch apixaban No 5mg Take 5 mg Uni vers (ELIQUIS) 5 11-20 by mouth 2 i ty of mg tablet 09:11: 00:00 (two) [place] 35 :00 times Medical daily. Branch traZODONE 2021- No Take by [facility] ers (DESYREL) 11-20 mouth at ity o f 10 mg/mL 09:10: 00:00 bedtime. [place] oral 28 :00 Medical suspension Branch hydralAZINE Yes 25mg Take 25 mg Univers (APRESOLINE 11-20 by mouth ity of ) 25 mg 08:47: daily. [place] tablet 47 Medical Branch cephALEXin 2021- No [id number] 500mg Take 1 Univers (KEFLEX) 10-24 capsule [...] 7-10). Indication s: acute pain buPROPion Yes [id number] 150mg Take 1 U nivers XL 4-12 tablet by ity of (WELLBUTRIN 00:00: mouth [place] XL) 150 mg 00 daily. Medical 24 hr Branch tablet busPIRone Yes [id number] 30mg Take 1 Un matt 30 mg 4-12 tablet by ity of tablet 00:00: mouth 2 (two) Medical times Branch daily. SERTraline Yes [id number] 200mg Take 2 Univers 100 mg 4-12 tablets by ity of tablet 00:00: mouth [place] 00 daily. Medical Branch buPROPion Yes [id number] 150mg Take 1 U nivers XL 4-12 tablet by ity of (WELLBUTRIN 00:00: mouth [place] XL) 150 mg 00 daily. Medical 24 hr Branch tablet busPIRone 0 Yes [id number] 30mg Take 1 Un matt 30 mg 4-12 tablet by ity of tablet 00:00: mouth 2 [place] (two) Medical times Branch daily. SERTraline Yes [id number] 200mg Take 2 Univers 100 mg 4-12 tablets by ity of tablet 00:00: mouth [place] 00 daily. Medical Branch buPROPion 0 Yes [id number] 150mg Take 1 U nivers XL 4-12 tablet by ity of (WELLBUTRIN 00:00: mouth [place] XL) 150 mg 00 daily. Medical 24 hr Branch tablet busPIRone 0 Yes [id number] 30mg Take 1 Un matt 30 mg 4-12 tablet by ity of tablet 00:00: mouth 2 [place] (two) Medical times Branch daily. SERTraline 2021-0 Yes [id number] 200mg Take 2 Univers 100 mg 4-12 tablets by ity of tablet 00:00: mouth [place] 00 daily. Medical Branch buPROPion 2021-0 Yes [id number] 150mg Take 1 U nivers XL 4-12 tablet by ity of (WELLBUTRIN 00:00: mouth [place] XL) 150 mg 00 daily. Medical 24 hr Branch tablet busPIRone 2021-0 Yes [id number] 30mg Take 1 Un matt 30 mg 4-12 tablet by ity of tablet 00:00: mouth 2 [place] 00 (two) Medical times Branch daily. SERTraline 2021-0 Yes [id number] 200mg Take 2 Univers 100 mg 4-12 tablets by ity of tablet 00:00: mouth [place] 00 daily. Medical Branch buPROPion 2021-0 Yes [id number] 150mg Take 1 U nivers XL 4-12 tablet by ity of (WELLBUTRIN 00:00: mouth [place] XL) 150 mg 00 daily. Medical 24 hr Branch tablet busPIRone 2021-0 Yes [id number] 30mg Take 1 Un matt 30 mg 4-12 tablet by ity of tablet 00:00: mouth 2 [place] 00 (two) Medical times Branch daily. SERTraline 2021-0 Yes [id number] 200mg Take 2 Univers 100 mg 4-12 tablets by ity of tablet 00:00: mouth [place] 00 daily. Medical Branch buPROPion 2021-0 Yes [id number] 150mg Take 1 U nivers XL 4-12 tablet by ity of (WELLBUTRIN 00:00: mouth [place] XL) 150 mg 00 daily. Medical 24 hr Branch tablet busPIRone 2021-0 Yes [id number] 30mg Take 1 Un matt 30 mg 4-12 tablet by ity of tablet 00:00: mouth 2 [place] 00 (two) Medical times Branch daily. SERTraline 2021-0 Yes [id number] 200mg Take 2 Univers 100 mg 4-12 tablets by ity of tablet 00:00: mouth [place] 00 daily. Medical Branch buPROPion 2021-0 Yes [id number] 150mg Take 1 U nivers XL 4-12 tablet by ity of (WELLBUTRIN 00:00: mouth [place] XL) 150 mg 00 daily. Medical 24 hr Branch tablet busPIRone 2021-0 Yes [id number] 30mg Take 1 Un matt 30 mg 4-12 tablet by ity of tablet 00:00: mouth 2 [place] 00 (two) Medical times Branch daily. SERTraline 2021-0 Yes [id number] 200mg Take 2 Univers 100 mg 4-12 tablets by ity of tablet 00:00: mouth [place] 00 daily. Medical Branch buPROPion 2021-0 Yes [id number] 150mg Take 1 U nivers XL 4-12 tablet by ity of (WELLBUTRIN 00:00: mouth [place] XL) 150 mg 00 daily. Medical 24 hr Branch tablet busPIRone 2021-0 Yes [id number] 30mg Take 1 Un matt 30 mg 4-12 tablet by ity of tablet 00:00: mouth 2 [place] 00 (two) Medical times Branch daily. SERTraline 2021-0 Yes [id number] 200mg Take 2 Univers 100 mg 4-12 tablets by ity of tablet 00:00: mouth [place] 00 daily. Medical Branch buPROPion 2021-0 Yes [id number] 150mg Take 1 U nivers XL 4-12 tablet by ity of (WELLBUTRIN 00:00: mouth [place] XL) 150 mg 00 daily. Medical 24 hr Branch tablet busPIRone 2021-0 Yes [id number] 30mg Take 1 Un matt 30 mg 4-12 tablet by ity of tablet 00:00: mouth 2 [place] 00 (two) Medical times Branch daily. SERTraline 2021-0 Yes [id number] 200mg Take 2 Univers 100 mg 4-12 tablets by ity of tablet 00:00: mouth [place] 00 daily. Medical Branch buPROPion 2021-0 Yes [id number] 150mg Take 1 U nivers XL 4-12 tablet by ity of (WELLBUTRIN 00:00: mouth [place] XL) 150 mg 00 daily. Medical 24 hr Branch tablet busPIRone 2021-0 Yes [id number] 30mg Take 1 Un matt 30 mg 4-12 tablet by ity of tablet 00:00: mouth 2 [place] 00 (two) Medical times Branch daily. SERTraline 2021-0 Yes [id number] 200mg Take 2 Univers 100 mg 4-12 tablets by ity of tablet 00:00: mouth [place] 00 daily. Medical Branch buPROPion 2021-0 Yes [id number] 150mg Take 1 U nivers XL 4-12 tablet by ity of (WELLBUTRIN 00:00: mouth [place] XL) 150 mg 00 daily. Medical 24 hr Branch tablet busPIRone 2021-0 Yes [id number] 30mg Take 1 Un matt 30 mg 4-12 tablet by ity of tablet 00:00: mouth 2 [place] 00 (two) Medical times Branch daily. SERTraline 2021-0 Yes [id number] 200mg Take 2 Univers 100 mg 4-12 tablets by ity of tablet 00:00: mouth [place] 00 daily. Medical Branch buPROPion 2021-0 Yes [id number] 150mg Take 1 U nivers XL 4-12 tablet by ity of (WELLBUTRIN 00:00: mouth [place] XL) 150 mg 00 daily. Medical 24 hr Branch tablet busPIRone 2021-0 Yes [id number] 30mg Take 1 Un matt 30 mg 4-12 tablet by ity of tablet 00:00: mouth 2 (two) Medical times Branch daily. SERTraline 2021-0 Yes [id number] 200mg Take 2 Univers 100 mg 4-12 tablets by ity of tablet 00:00: mouth [place] 00 daily. Medical Branch buPROPion 2021-0 Yes [id number] 150mg Take 1 U nivers XL 4-12 tablet by ity of (WELLBUTRIN 00:00: mouth [place] XL) 150 mg 00 daily. Medical 24 hr Branch tablet busPIRone 2021-0 Yes [id number] 30mg Take 1 Un matt 30 mg 4-12 tablet by ity of tablet 00:00: mouth 2 00 (two) Medical times Branch daily. SERTraline 2021-0 Yes [id number] 200mg Take 2 [facility] 100 mg 4-12 tablets by [facility] tablet 00:00: mouth [place] 00 daily. [facility] buPROPion 2021-0 Yes [id number] 150mg Take 1 [facility] nivers XL 4-12 tablet by [facility] of (WELLBUTRIN 00:00: mouth [place] XL) 150 mg 00 daily. Medical 24 hr Branch tablet busPIRone 2021-0 Yes [id number] 30mg Take 1 [facility] matt 30 mg 4-12 tablet by [facility] tablet 00:00: mouth 2 00 (two) Medical times Branch daily. SERTraline 2021-0 Yes [id number] 200mg Take 2 [facility] 100 mg 4-12 tablets by [facility] of tablet 00:00: mouth [place] 00 daily. [facility] buPROPion 2021-0 Yes [id number] 150mg Take 1 [facility] nivers XL 4-12 tablet by [facility] of (WELLBUTRIN 00:00: mouth [place] XL) 150 mg 00 daily. Medical 24 hr Branch tablet busPIRone 2021-0 Yes [id number] 30mg Take 1 [facility] 30 mg 4-12 tablet by [facility] of tablet 00:00: mouth 2 [place] 00 (two) Medical times Branch daily. SERTraline 2021-0 Yes [id number] 200mg Take 2 [facility] 100 mg 4-12 tablets by [facility] of tablet 00:00: mouth [place] 00 daily. [facility] buPROPion 2021-0 Yes [id number] 150mg Take 1 [facility] nivers XL 4-12 tablet by [facility] of (WELLBUTRIN 00:00: mouth [place] XL) 150 mg 00 daily. Medical 24 hr Branch tablet busPIRone 2021-0 Yes [id number] 30mg Take 1 [facility] 30 mg 4-12 tablet by [facility] of tablet 00:00: mouth 2 [place] 00 (two) Medical times Branch daily. SERTraline 2021-0 Yes [id number] 200mg Take 2 [facility] 100 mg 4-12 tablets by [facility] of tablet 00:00: mouth [place] 00 daily. [facility] buPROPion 2021-0 Yes [id number] 150mg Take 1 [facility] XL 4-12 tablet by [facility] of (WELLBUTRIN 00:00: mouth [place] XL) 150 mg 00 daily. Medical 24 hr Branch tablet busPIRone 2021-0 Yes [id number] 30mg Take 1 [facility] 30 mg 4-12 tablet by [facility] of tablet 00:00: mouth 2 [place] 00 (two) Medical times Branch daily. SERTraline 2021-0 Yes [id number] 200mg Take 2 [facility] 100 mg 4-12 tablets by [facility] of tablet 00:00: mouth [place] 00 daily. [facility] buPROPion 2021-0 Yes [id number] 150mg Take 1 [facility] XL 4-12 tablet by [facility] of (WELLBUTRIN 00:00: mouth [place] XL) 150 mg 00 daily. Medical 24 hr Branch tablet busPIRone 2021-0 Yes [id number] 30mg Take 1 [facility] 30 mg 4-12 tablet by [facility] tablet 00:00: mouth 2 [place] 00 (two) Medical times Branch daily. SERTraline 2021-0 Yes [id number] 200mg Take 2 [facility] 100 mg 4-12 tablets by [facility] of tablet 00:00: mouth [place] 00 daily. [facility] buPROPion 2021-0 Yes [id number] 150mg Take 1 [facility] XL 4-12 tablet by [facility] of (WELLBUTRIN 00:00: mouth [place] XL) 150 mg 00 daily. Medical 24 hr Branch tablet busPIRone 2021-0 Yes [id number] 30mg Take 1 [facility] 30 mg 4-12 tablet by [facility] of tablet 00:00: mouth 2 [place] 00 (two) Medical times Branch daily. SERTraline 2021-0 Yes [id number] 200mg Take 2 [facility] 100 mg 4-12 tablets by [facility] of tablet 00:00: mouth [place] 00 daily. [facility] buPROPion 2021-0 Yes [id number] 150mg Take 1 [facility] XL 4-12 tablet by [facility] of (WELLBUTRIN 00:00: mouth [place] XL) 150 mg 00 daily. Medical 24 hr Branch tablet busPIRone 2021-0 Yes [id number] 30mg Take 1 [facility] 30 mg 4-12 tablet by [facility] of tablet 00:00: mouth 2 [place] 00 (two) Medical times Branch daily. SERTraline 2021-0 Yes [id number] 200mg Take 2 [facility] 100 mg 4-12 tablets by [facility] of tablet 00:00: mouth [place] 00 daily. [facility] buPROPion 2021-0 Yes [id number] 150mg Take 1 [facility] XL 4-12 tablet by [facility] of (WELLBUTRIN 00:00: mouth [place] XL) 150 mg 00 daily. Medical 24 hr Branch tablet busPIRone 2021-0 Yes [id number] 30mg Take 1 [facility] 30 mg 4-12 tablet by [facility] of tablet 00:00: mouth 2 [place] 00 (two) Medical times Branch daily. SERTraline 2021-0 Yes [id number] 200mg Take 2 [facility] 100 mg 4-12 tablets by [facility] of tablet 00:00: mouth [place] 00 daily. [facility] buPROPion 2021-0 Yes [id number] 150mg Take 1 [facility] XL 4-12 tablet by [facility] of (WELLBUTRIN 00:00: mouth [place] XL) 150 mg 00 daily. Medical 24 hr Branch tablet busPIRone 2021-0 Yes [id number] 30mg Take 1 [facility] 30 mg 4-12 tablet by [facility] of tablet 00:00: mouth 2 [place] 00 (two) Medical times Branch daily. SERTraline 0 Yes [id number] 200mg Take 2 [facility] 100 mg 4-12 tablets by [facility] of tablet 00:00: mouth [place] 00 daily. [facility] buPROPion 0 Yes [id number] 150mg Take 1 [facility] XL 4-12 tablet by [facility] of (WELLBUTRIN 00:00: mouth [place] XL) 150 mg 00 daily. Medical 24 hr Branch tablet busPIRone 2021-0 Yes [id number] 30mg Take 1 [facility] 30 mg 4-12 tablet by [facility] of tablet 00:00: mouth 2 00 (two) Medical times Branch daily. SERTraline 0 Yes [id number] 200mg Take 2 [facility] 100 mg 4-12 tablets by [facility] of tablet 00:00: mouth [place] 00 daily. [facility] buPROPion 0 Yes [id number] 150mg Take 1 [facility] XL 4-12 tablet by [facility] of (WELLBUTRIN 00:00: mouth [place] XL) 150 mg 00 daily. Medical 24 hr Branch tablet busPIRone 0 Yes [id number] 30mg Take 1 [facility] 30 mg 4-12 tablet by [facility] of tablet 00:00: mouth 2 00 (two) Medical times Branch daily. SERTraline 2021-0 Yes [id number] 200mg Take 2 [facility] 100 mg 4-12 tablets by [facility] of tablet 00:00: mouth [place] 00 daily. [facility] buPROPion 0 Yes [id number] 150mg Take 1 [facility] XL 4-12 tablet by [facility] of (WELLBUTRIN 00:00: mouth [place] XL) 150 mg 00 daily. Medical 24 hr Branch tablet busPIRone 2021-0 Yes [id number] 30mg Take 1 [facility] 30 mg 4-12 tablet by [facility] tablet 00:00: mouth 2 00 (two) Medical times Branch daily. SERTraline 2021-0 Yes [id number] 200mg Take 2 [facility] 100 mg 4-12 tablets by [facility] of tablet 00:00: mouth [place] 00 daily. [facility] buPROPion 2021-0 Yes [id number] 150mg Take 1 [facility] XL 4-12 tablet by [facility] of (WELLBUTRIN 00:00: mouth [place] XL) 150 mg 00 daily. Medical 24 hr Branch tablet busPIRone 2021-0 Yes [id number] 30mg Take 1 [facility] 30 mg 4-12 tablet by [facility] of tablet 00:00: mouth 2 [place] 00 (two) Medical times Branch daily. SERTraline 2021-0 Yes [id number] 200mg Take 2 [facility] 100 mg 4-12 tablets by [facility] of tablet 00:00: mouth [place] 00 daily. Medical [facility] buPROPion 2021-0 Yes [id number] 150mg Take 1 [facility] XL 4-12 tablet by [facility] of (WELLBUTRIN 00:00: mouth [place] XL) 150 mg 00 daily. Medical 24 hr Branch tablet busPIRone 2021-0 Yes [id number] 30mg Take 1 [facility] 30 mg 4-12 tablet by [facility] of tablet 00:00: mouth 2 [place] 00 (two) Medical times Branch daily. SERTraline 2021-0 Yes [id number] 200mg Take 2 [facility] 100 mg 4-12 tablets by [facility] of tablet 00:00: mouth [place] 00 daily. Medical [facility] buPROPion 2021-0 Yes [id number] 150mg Take 1 [facility] XL 4-12 tablet by [facility] of (WELLBUTRIN 00:00: mouth [place] XL) 150 mg 00 daily. Medical 24 hr Branch tablet busPIRone 2021-0 Yes [id number] 30mg Take 1 [facility] 30 mg 4-12 tablet by [facility] of tablet 00:00: mouth 2 [place] 00 (two) Medical times Branch daily. SERTraline 2021-0 Yes [id number] 200mg Take 2 [facility] 100 mg 4-12 tablets by [facility] of tablet 00:00: mouth [place] 00 daily. [facility] buPROPion 2021-0 Yes [id number] 150mg Take 1 [facility] XL 4-12 tablet by [facility] of (WELLBUTRIN 00:00: mouth [place] XL) 150 mg 00 daily. Medical 24 hr Branch tablet busPIRone 2021-0 Yes [id number] 30mg Take 1 [facility] 30 mg 4-12 tablet by [facility] of tablet 00:00: mouth 2 [place] 00 (two) Medical times Branch daily. SERTraline 2021-0 Yes [id number] 200mg Take 2 [facility] 100 mg 4-12 tablets by [facility] of tablet 00:00: mouth [place] 00 daily. [facility] buPROPion 2021-0 Yes [id number] 150mg Take 1 [facility] XL 4-12 tablet by [facility] of (WELLBUTRIN 00:00: mouth [place] XL) 150 mg 00 daily. Medical 24 hr Branch tablet busPIRone 2021-0 Yes [id number] 30mg Take 1 [facility] 30 mg 4-12 tablet by [facility] of tablet 00:00: mouth 2 [place] 00 (two) Medical times Branch daily. SERTraline 2021-0 Yes [id number] 200mg Take 2 [facility] 100 mg 4-12 tablets by [facility] of tablet 00:00: mouth [place] 00 daily. Medical [facility] raltegravir 2021-0 Yes [id number] 400mg Take 1 [facility] (ISENTRESS) 3-28 tablet by [facility] of 400 mg 00:00: mouth 2 [place] tablet 00 (two) Medical times Branch daily. raltegravir 2021-0 Yes [id number] 400mg Take 1 [facility] (ISENTRESS) 3-28 tablet by [facility] of 400 mg 00:00: mouth 2 [place] tablet 00 (two) Medical times Branch daily. raltegravir 2021-0 Yes [id number] 400mg Take 1 [facility] (ISENTRESS) 3-28 tablet by [facility] of 400 mg 00:00: mouth 2 [place] tablet 00 (two) Medical times Branch daily. raltegravir 2021-0 Yes [id number] 400mg Take 1 [facility] (ISENTRESS) 3-28 tablet by [facility] of 400 mg 00:00: mouth 2 [place] tablet 00 (two) Medical times Branch daily. raltegravir 2021-0 Yes [id number] 400mg Take 1 [facility] (ISENTRESS) 3-28 tablet by [facility] of 400 mg 00:00: mouth 2 [place] tablet 00 (two) Medical times Branch daily. raltegravir 2021-0 Yes [id number] 400mg Take 1 [facility] (ISENTRESS) 3-28 tablet by [facility] of 400 mg 00:00: mouth 2 [place] tablet 00 (two) Medical times Branch daily. raltegravir 2021-0 Yes [id number] 400mg Take 1 [facility] (ISENTRESS) 3-28 tablet by [facility] of 400 mg 00:00: mouth 2 [place] tablet 00 (two) Medical times Branch daily. raltegravir 2022-0 Yes [id number] 400mg Take 1 [facility] (ISENTRESS) 3-28 tablet by [facility] of 400 mg 00:00: mouth 2 [place] tablet 00 (two) Medical times Branch daily. raltegravir 2022-0 Yes [id number] 400mg Take 1 [facility] (ISENTRESS) 3-28 tablet by [facility] of 400 mg 00:00: mouth 2 [place] tablet 00 (two) Medical times Branch daily. raltegravir 2022-0 Yes [id number] 400mg Take 1 [facility] (ISENTRESS) 3-28 tablet by [facility] of 400 mg 00:00: mouth 2 [place] tablet 00 (two) Medical times Branch daily. raltegravir 2022-0 Yes [id number] 400mg Take 1 [facility] (ISENTRESS) 3-28 tablet by [facility] of 400 mg 00:00: mouth 2 [place] tablet 00 (two) Medical times Branch daily. raltegravir 2022-0 Yes [id number] 400mg Take 1 [facility] (ISENTRESS) 3-28 tablet by [facility]y of 400 mg 00:00: mouth 2 [place] tablet 00 (two) Medical times Branch daily. raltegravir 2022-0 Yes [id number] 400mg Take 1 [facility] (ISENTRESS) 3-28 tablet by [facility]y of 400 mg 00:00: mouth 2 [place] tablet 00 (two) Medical times Branch daily. raltegravir 2022-0 Yes [id number] 400mg Take 1 [facility] (ISENTRESS) 3-28 tablet by [facility]y of 400 mg 00:00: mouth 2 [place] tablet 00 (two) Medical times Branch daily. raltegravir 2022-0 Yes [id number] 400mg Take 1 [facility] (ISENTRESS) 3-28 tablet by [facility]y of 400 mg 00:00: mouth 2 [place] tablet 00 (two) Medical times Branch daily. raltegravir 2022-0 Yes [id number] 400mg Take 1 [facility] (ISENTRESS) 3-28 tablet by [facility]y of 400 mg 00:00: mouth 2 [place] tablet 00 (two) Medical times Branch daily. raltegravir 2022-0 Yes [id number] 400mg Take 1 [facility] (ISENTRESS) 3-28 tablet by [facility]y of 400 mg 00:00: mouth 2 [place] tablet 00 (two) Medical times Branch daily. raltegravir Yes [id number] 400mg Take 1 [facility] (ISENTRESS) 3-28 tablet by [facility]y of 400 mg 00:00: mouth 2 [place] tablet 00 (two) Medical times Branch daily. raltegravir Yes [id number] 400mg Take 1 [facility] (ISENTRESS) 3-28 tablet by [facility]y of 400 mg 00:00: mouth 2 [place] tablet 00 (two) Medical times Branch daily. raltegravir Yes [id number] 400mg Take 1 [facility] (ISENTRESS) 3-28 tablet by ity of 400 mg 00:00: mouth 2 [place] tablet 00 (two) Medical times Branch daily. raltegravir 2022- No [id number] 400mg Take 1 [facility] (ISENTRESS) 3-28 05-08 tablet by it y of 400 mg 00:00: 00:00 mouth 2 [place] tablet 00 :00 (two) Medical times Branch daily. LORazepam 1 2021- No [id number] 1mg Take 1 [facility] mg tablet 3-21 [...] times a tablet day. emtricitabi 2021- No [id number] Take one [facility] ne-tenofovi 1-20 09-12 po daily ity of r alafen 00:00: 00:00 [place] (DESCOVY) 00 :00 Medical tablet Branch metoprolol Yes [id number] Take 1 [facility] tartrate 7-26 [facility] (Lopressor) 00:00: (100 mg 100 MG 00 total) by tablet mouth 2 (two) times a day AND 0.5 tablets (50 mg total) every night. metoprolol 0 Yes [id number] Take 1 [facility] tartrate 7-26 [facility] (Lopressor) 00:00: (100 mg 100 MG 00 total) by tablet mouth 2 (two) times a day AND 0.5 tablets (50 mg total) every night. raltegravir 0 Yes 400mg Q.5D Take 400 [facility] (Isentress) 7-23 mg by [facility] 400 MG 08:03: mouth 2 tablet 05 (two) times a day. acetaminoph 0 Yes 1000mg Q.5D Take 1,000 [...] (affected area in groin) hydrALAZINE Yes 50mg Q.10183570 Take 50 mg [facility] (APRESOLINE 7-19 [id number] [facility] ) 50 MG [...] area in groin) hydrALAZINE 0 Yes 50mg Q.[id number] Take 50 mg [facility] (APRESOLINE 7-19 [id number] [facility] mouth [facility] ) 50 MG [...] area in groin) hydrALAZINE 0 Yes 50mg Q.[id number] Take 50 mg [facility] (APRESOLINE 7-19 [id number] [facility] mouth [facility] ) 50 MG [...] (affected area in groin) hydrALAZINE Yes 50mg Q.[id number] Take 50 mg [facility] (APRESOLINE 7-19 [id number] [facility] mouth [facility] ) 50 MG [...] area in groin) hydrALAZINE 0 Yes 50mg Q.[id number] Take 50 mg [facility] (APRESOLINE 7-19 [id number] [facility] mouth [facility] ) 50 MG [...] area in groin) hydrALAZINE 0 Yes 50mg Q.[id number] Take 50 mg [facility] (APRESOLINE 7-19 [id number] [facility] mouth [facility] ) 50 MG [...] (affected area in groin) hydrALAZINE Yes 50mg Q.[id number] Take 50 mg [facility] (APRESOLINE 7-19 [id number] [facility] ) 50 MG [...] (affected area in groin) hydrALAZINE Yes 50mg Q.[id number] Take 50 mg [facility] (APRESOLINE 7-19 [id number] [facility] mouth [facility] ) 50 MG [...] area in groin) hydrALAZINE 0 Yes 50mg Q.[id number] Take 50 mg [facility] (APRESOLINE 7-19 [id number] [facility] ) 50 MG [...] area in groin) hydrALAZINE 0 Yes 50mg Q.[id number] Take 50 mg [facility] (APRESOLINE 7-19 [id number] [facility] mouth [facility] ) 50 MG [...] (affected area in groin) hydrALAZINE Yes 50mg Q.[id number] Take 50 mg [facility] (APRESOLINE - [id number] by mouth [facility] ) 50 MG [...] area in groin) hydrALAZINE 0 Yes 50mg Q.[id number] Take 50 mg [facility] (APRESOLINE 7-19 [id number] [facility] mouth [facility] ) 50 MG [...] area in groin) hydrALAZINE 2020-0 Yes 50mg Q.[id number] Take 50 mg [facility] (APRESOLINE 7-19 [id number] [facility] mouth [facility] ) 50 MG [...] (affected area in groin) hydrALAZINE Yes 50mg Q.[id number] Take 50 mg [facility] (APRESOLINE 7-19 [id number] [facility] mouth [facility] ) 50 MG [...] area in groin) hydrALAZINE 0 Yes 50mg Q.[id number] Take 50 mg [facility] (APRESOLINE 7-19 [id number] [facility] mouth [facility] ) 50 MG [...] area in groin) hydrALAZINE 2020-0 Yes 50mg Q.[id number] Take 50 mg [facility] (APRESOLINE 7-19 [id number] [facility] ) 50 MG [...] area in groin) hydrALAZINE 0 Yes 50mg Q.[id number] Take 50 mg [facility] (APRESOLINE 7-19 [id number] [facility] ) 50 MG [...] (affected area in groin) hydrALAZINE Yes 50mg Q.[id number] Take 50 mg [facility] (APRESOLINE 7-19 [id number] by mouth [facility] ) 50 MG [...] area in groin) hydrALAZINE 2020-0 Yes 50mg Q.[id number] Take 50 mg [facility] (APRESOLINE -19 [id number] [facility] ) 50 MG [...] area in groin) hydrALAZINE 0 Yes 50mg Q.[id number] Take 50 mg [facility] (APRESOLINE 7-19 [id number] [facility] ) 50 MG [...] (affected area in groin) hydrALAZINE Yes 50mg Q.[id number] Take 50 mg [facility] (APRESOLINE 7-19 [id number] [address] [facility] ) 50 MG [...] area in groin) hydrALAZINE 0 Yes 50mg Q.90830773 Take 50 mg [facility] (APRESOLINE 7-19 [id number] [facility] ) 50 MG [...] area in groin) hydrALAZINE 0 Yes 50mg Q.[id number] Take 50 mg [facility] (APRESOLINE 7-19 [id number] [facility] ) 50 MG [...] (affected area in groin) hydrALAZINE Yes 50mg Q.[id number] Take 50 mg [facility] (APRESOLINE 7-19 [id number] [facility] ) 50 MG [...] area in groin) hydrALAZINE 0 Yes 50mg Q.[id number] Take 50 mg [facility] (APRESOLINE -19 [id number] by [facility] ) 50 MG [...] area in groin) hydrALAZINE 0 Yes 50mg Q.[id number] Take 50 mg [facility] (APRESOLINE 7-19 [id number] [facility] mouth [facility] ) 50 MG [...] area in groin) hydrALAZINE 2020-0 Yes 50mg Q.[id number] Take 50 mg [facility] (APRESOLINE 7-19 [id number] [facility] ) 50 MG [...] (affected area in groin) hydrALAZINE Yes 50mg Q.[id number] Take 50 mg [facility] (APRESOLINE 7- [id number] by mouth 3 [facility] ) 50 MG [...] area in groin) hydrALAZINE 0 Yes 50mg Q.[id number] Take 50 mg [facility] (APRESOLINE 7-19 [id number] [facility] ) 50 MG [...] area in groin) hydrALAZINE 2020-0 Yes 50mg Q.[id number] Take 50 mg [facility] (APRESOLINE 7-19 [id number] [facility] ) 50 MG [...] area in groin) hydrALAZINE 0 Yes 50mg Q.[id number] Take 50 mg [facility] (APRESOLINE 7-[id number] [facility] ) 50 MG [...] area in groin) hydrALAZINE 0 Yes 50mg Q.[id number] Take 50 mg [facility] (APRESOLINE 7-[id number] [address] [facility] ) 50 MG [...] area in groin) hydrALAZINE 2020-0 Yes 50mg Q.[id number] Take 50 mg [facility] (APRESOLINE 7-[id number] [facility] ) 50 MG [...] area in groin) hydrALAZINE 0 Yes 50mg Q.[id number] Take 50 mg [facility] (APRESOLINE 7-19 [id number] [facility] ) 50 MG [...] (affected area in groin) hydrALAZINE Yes 50mg Q.[id number] Take 50 mg [facility] (APRESOLINE 7-19 [id number] [facility] ) 50 MG [...] area in groin) hydrALAZINE 2020-0 Yes 50mg Q.[id number] Take 50 mg [facility] (APRESOLINE -19 [id number] [facility] ) 50 MG [...] area in groin) hydrALAZINE 0 Yes 50mg Q.[id number] Take 50 mg [facility] (APRESOLINE 7-19 [id number] [facility] ) 50 MG [...] (affected area in groin) hydrALAZINE Yes 50mg Q.[id number] Take 50 mg [facility] (APRESOLINE 7-19 [id number] [facility] ) 50 MG [...] area in groin) hydrALAZINE 0 Yes 50mg Q.[id number] Take 50 mg [facility] (APRESOLINE -19 [id number] by [facility] ) 50 MG [...] area in groin) hydrALAZINE 0 Yes 50mg Q.[id number] Take 50 mg [facility] (APRESOLINE 7-19 [id number] [facility] ) 50 MG [...] (affected area in groin) hydrALAZINE Yes 50mg Q.[id number] Take 50 mg [facility] (APRESOLINE 7-19 [id number] [address] [facility] ) 50 MG [...] area in groin) hydrALAZINE 0 Yes 50mg Q.[id number] Take 50 mg [facility] (APRESOLINE -19 [id number] [facility] ) 50 MG [...] area in groin) hydrALAZINE 2020-0 Yes 50mg Q.[id number] Take 50 mg [facility] (APRESOLINE 7-19 [id number] [address] [facility] ) 50 MG [...] area in groin) hydrALAZINE 0 Yes 50mg Q.[id number] Take 50 mg [facility] (APRESOLINE 7-[id number] [facility] ) 50 MG [...] (affected area in groin) hydrALAZINE Yes 50mg Q.[id number] Take 50 mg [facility] (APRESOLINE - [id number] by mouth [facility] ) 50 MG [...] area in groin) hydrALAZINE 0 Yes 50mg Q.[id number] Take 50 mg [facility] (APRESOLINE -19 [id number] [facility] ) 50 MG [...] area in groin) hydrALAZINE 2020-0 Yes 50mg Q.[id number] Take 50 mg [facility] (APRESOLINE 7-[id number] [facility] ) 50 MG [...] (affected area in groin) hydrALAZINE Yes 50mg Q.[id number] Take 50 mg [facility] (APRESOLINE 7-[id number] [facility] ) 50 MG [...] area in groin) hydrALAZINE 0 Yes 50mg Q.[id number] Take 50 mg [facility] (APRESOLINE 7-[id number] [facility] ) 50 MG [...] area in groin) hydrALAZINE 0 Yes 50mg Q.[id number] Take 50 mg [facility] (APRESOLINE 7-[id number] [address] [facility] ) 50 MG [...] area in groin) hydrALAZINE 0 Yes 50mg Q.[id number] Take 50 mg [facility] (APRESOLINE 7-[id number] [facility] ) 50 MG [...] (affected area in groin) hydrALAZINE Yes 50mg Q.[id number] Take 50 mg [facility] (APRESOLINE 7-[id number] [facility] ) 50 MG [...] area in groin) hydrALAZINE 0 Yes 50mg Q.[id number] Take 50 mg [facility] (APRESOLINE 7-[id number] [facility] ) 50 MG [...] (affected area in groin) hydrALAZINE Yes 50mg Q.[id number] Take 50 mg [facility] (APRESOLINE 7-[id number] [facility] [address] ) 50 MG [...] (affected area in groin) hydrALAZINE Yes 50mg Q.[id number] Take 50 mg [facility] (APRESOLINE 7-[id number] [facility] ) 50 MG [...] area in groin) hydrALAZINE 0 Yes 50mg Q.[id number] Take 50 mg [facility] (APRESOLINE 7-[id number] [facility] [address] ) 50 MG [...] area in groin) hydrALAZINE 0 Yes 50mg Q.[id number] Take 50 mg [facility] (APRESOLINE 7-[id number] [facility] [address] ) 50 MG [...] (affected area in groin) hydrALAZINE Yes 50mg Q.[id number] Take 50 mg [facility] (APRESOLINE 7-[id number] [facility] [address] ) 50 MG [...] area in groin) hydrALAZINE 0 Yes 50mg Q.[id number] Take 50 mg [facility] (APRESOLINE 7-[id number] [facility] [address] ) 50 MG [...] area in groin) hydrALAZINE 0 Yes 50mg Q.[id number] Take 50 mg [facility] (APRESOLINE 7-[id number] [facility] [address] ) 50 MG [...] (affected area in groin) hydrALAZINE Yes 50mg Q.[id number] Take 50 mg [facility] (APRESOLINE 7-[id number] [facility] ) 50 MG [...] (affected area in groin) hydrALAZINE Yes 50mg Q.[id number] Take 50 mg [facility] (APRESOLINE 7-[id number] [facility] ) 50 MG [...] area in groin) hydrALAZINE 0 Yes 50mg Q.[id number] Take 50 mg [facility] (APRESOLINE 7-[id number] [facility] [address] ) 50 MG [...] (affected area in groin) hydrALAZINE Yes 50mg Q.[id number] Take 50 mg [facility] (APRESOLINE 7-[id number] [facility] ) 50 MG [...] (affected area in groin) hydrALAZINE Yes 50mg Q.[id number] Take 50 mg [facility] (APRESOLINE 7-[id number] [facility] [address] ) 50 MG [...] area in groin) hydrALAZINE 2020-0 Yes 50mg Q.[id number] Take 50 mg [facility] (APRESOLINE 7-[id number] [facility] ) 50 MG [...] area in groin) hydrALAZINE 0 Yes 50mg Q.[id number] Take 50 mg [facility] (APRESOLINE 7-[id number] [facility] [address] ) 50 MG [...] (affected area in groin) hydrALAZINE Yes 50mg Q.[id number] Take 50 mg [facility] (APRESOLINE 7-[id number] [facility] [address] ) 50 MG [...] (affected area in groin) hydrALAZINE Yes 50mg Q.[id number] Take 50 mg [facility] (APRESOLINE 7-[id number] [facility] ) 50 MG [...] (affected area in groin) hydrALAZINE Yes 50mg Q.[id number] Take 50 mg [facility] (APRESOLINE 7-[id number] [facility] [address] ) 50 MG [...] (affected area in groin) hydrALAZINE Yes 50mg Q.[id number] Take 50 mg [facility] (APRESOLINE 7-[id number] [facility] [address] ) 50 MG [...] area in groin) hydrALAZINE 0 Yes 50mg Q.[id number] Take 50 mg [facility] (APRESOLINE 7-[id number] [facility] [address] ) 50 MG [...] area in groin) hydrALAZINE 0 Yes 50mg Q.[id number] Take 50 mg [facility] (APRESOLINE 7-[id number] [facility] [address] ) 50 MG [...] (affected area in groin) hydrALAZINE Yes 50mg Q.[id number] Take 50 mg [facility] (APRESOLINE 7-[id number] [facility] [address] ) 50 MG [...] (affected area in groin) hydrALAZINE Yes 50mg Q.[id number] Take 50 mg [facility] (APRESOLINE 7-[id number] [facility] ) 50 MG [...] (affected area in groin) hydrALAZINE Yes 50mg Q.[id number] Take 50 mg [facility] (APRESOLINE 7-[id number] [facility] [address] ) 50 MG [...] (affected area in groin) hydrALAZINE Yes 50mg Q.[id number] Take 50 mg [facility] (APRESOLINE 7-[id number] [facility] [address] ) 50 MG [...] (affected area in groin) hydrALAZINE Yes 50mg Q.[id number] Take 50 mg [facility] (APRESOLINE 7-[id number] [facility] [address] ) 50 MG [...] area in groin) hydrALAZINE 0 Yes 50mg Q.[id number] Take 50 mg [facility] (APRESOLINE 7-[id number] [facility] [address] ) 50 MG [...] area in groin) hydrALAZINE 2020-0 Yes 50mg Q.[id number] Take 50 mg [facility] (APRESOLINE 7-[id number] [facility] [address] ) 50 MG 10:51: 3D (three) [facility] times a l day. busPIRone 2020-0 Yes 20mg QD Take 20 mg [facility] (BUS[facility]) 10 -[address] [facility] tablet 10:51: nightly. [facility] 25 l nystatin-tr 2020-0 Yes [id number] Apply to [facility] iamcinolone 7-06 area(s) 3 [facility] of cream 00:00: (three) [place] 00 times Medical daily. Branch nystatin-tr 2021-0 Yes [id number] Apply to [facility] iamcinolone 7-06 area(s) 3 ity of cream 00:00: (three) [place] 00 times Medical daily. Branch nystatin-tr 2021-0 Yes [id number] Apply to [facility] iamcinolone 7-06 area(s) 3 ity of cream 00:00: (three) [place] 00 times Medical daily. Branch nystatin-tr 2021-0 Yes [id number] Apply to [facility] iamcinolone 7-06 area(s) 3 ity of cream 00:00: (three) [place] 00 times Medical daily. Branch nystatin-tr 2021-0 Yes [id number] Apply to [facility] iamcinolone 7-06 area(s) 3 ity of cream 00:00: (three) [place] 00 times Medical daily. Branch nystatin-tr 2021-0 Yes [id number] Apply to [facility] iamcinolone 7-06 area(s) 3 ity of cream 00:00: (three) [place] 00 times Medical daily. Branch nystatin-tr 2021-0 Yes [id number] Apply to [facility] iamcinolone 7-06 area(s) 3 ity of cream 00:00: (three) [place] 00 times Medical daily. Branch nystatin-tr 2021-0 Yes [id number] Apply to [facility] iamcinolone 7-06 area(s) 3 ity of cream 00:00: (three) [place] 00 times Medical daily. Branch nystatin-tr 2021-0 Yes [id number] Apply to [facility] iamcinolone 7-06 area(s) 3 ity of cream 00:00: (three) [place] 00 times Medical daily. Branch nystatin-tr 2021-0 Yes [id number] Apply to [facility] iamcinolone 7-06 area(s) 3 ity of cream 00:00: (three) [place] 00 times Medical daily. Branch nystatin-tr 2021-0 Yes [id number] Apply to [facility] iamcinolone 7-06 area(s) 3 ity of cream 00:00: (three) [place] 00 times Medical daily. Branch nystatin-tr 2021-0 Yes [id number] Apply to [facility] iamcinolone 7-06 area(s) 3 ity of cream 00:00: (three) [place] 00 times Medical daily. Branch nystatin-tr 2021-0 Yes [id number] Apply to [facility] iamcinolone 7-06 area(s) 3 ity of cream 00:00: (three) [place] 00 times Medical daily. Branch nystatin-tr 2021-0 Yes [id number] Apply to [facility] iamcinolone 7-06 area(s) 3 ity of cream 00:00: (three) [place] 00 times Medical daily. Branch nystatin-tr 2021-0 Yes [id number] Apply to [facility] iamcinolone 7-06 area(s) 3 ity of cream 00:00: (three) [place] 00 times Medical daily. Branch nystatin-tr 2021-0 Yes [id number] Apply to [facility] iamcinolone 7-06 area(s) 3 ity of cream 00:00: (three) [place] 00 times Medical daily. Branch nystatin-tr 2021-0 Yes [id number] Apply to [facility] iamcinolone 7-06 area(s) 3 ity of cream 00:00: (three) [place] 00 times Medical daily. Branch nystatin-tr 2021-0 Yes [id number] Apply to Univers iamcinolone 7-06 area(s) 3 ity of cream 00:00: (three) [place] 00 times Medical daily. Branch nystatin-tr 2021-0 Yes [id number] Apply to Univers iamcinolone 7-06 area(s) 3 ity of cream 00:00: (three) [place] 00 times Medical daily. Branch nystatin-tr 2021-0 Yes [id number] Apply to Univers iamcinolone 7-06 area(s) 3 ity of cream 00:00: (three) [place] 00 times Medical daily. Branch nystatin-tr 2021-0 Yes [id number] Apply to Univers iamcinolone 7-06 area(s) 3 ity of cream 00:00: (three) [place] 00 times Medical daily. Branch nystatin-tr 2021-0 Yes [id number] Apply to Univers iamcinolone 7-06 area(s) 3 ity of cream 00:00: (three) [place] 00 times Medical daily. Branch nystatin-tr 2021-0 Yes [id number] Apply to Univers iamcinolone 7-06 area(s) 3 ity of cream 00:00: (three) [place] 00 times Medical daily. Branch nystatin-tr 2021-0 Yes [id number] Apply to Univers iamcinolone 7-06 area(s) 3 ity of cream 00:00: (three) [place] 00 times Medical daily. Branch nystatin-tr 2021-0 Yes [id number] Apply to [facility] iamcinolone 7-06 area(s) 3 ity of cream 00:00: (three) [place] 00 times Medical daily. Branch nystatin-tr 2021-0 Yes [id number] Apply to Univers iamcinolone 7-06 area(s) 3 ity of cream 00:00: (three) [place] 00 times Medical daily. Branch nystatin-tr 2021-0 Yes [id number] Apply to [facility] iamcinolone 7-06 area(s) 3 ity of cream 00:00: (three) [place] 00 times Medical daily. Branch nystatin-tr 2021-0 Yes [id number] Apply to [facility] iamcinolone 7-06 area(s) 3 ity of cream 00:00: (three) [place] 00 times Medical daily. Branch nystatin-tr 2021-0 Yes [id number] Apply to [facility] iamcinolone 7-06 area(s) 3 ity of cream 00:00: (three) [place] 00 times Medical daily. Branch nystatin-tr 2021-0 Yes [id number] Apply to [facility] iamcinolone 7-06 area(s) 3 [facility]. Branch budesonide- 2020-0 1- No 1{puff} QD Inhale 1 [facility] formoteroL 625 06-[address] (SYMBICORT) 14:37: 00:00 morning. H ospita 160-4.5 02 :00 l mcg/actuati on inhaler hydrALAZINE 2020-0 Yes [id number] 50mg [id number] Take 1 [place] (Apresoline 6 [id number] tablet (50 Health ) 50 MG 00:00: 3D mg total) tablet 00 by mouth 3 (three) times a day. hydrALAZINE 0 Yes [id number] 50mg Q.[id number] Take 1 [place] (Apresoline 611 [id number] tablet (50 Health ) 50 MG 00:00: [...] % 00:00: ointment 00 nystatin 2020- No [id number] Q.25D Take 5 mL [facility] (MYCOSTATIN 10-06 [...] e 4-10 Tablet l 14:00: should not [place] 00 be chewed or crushed. (Same [...] ia 4-10 (Same as: l 14:00: Zoloft) [place] pantoprazol No Notes: [place] lisa e 4-10 Tablet l 14:00: should not [place] 00 be chewed or crushed. (Same as: Protonix) Amiodarone No Notes: Memor ia 4-10 (Same as: l 14:00: Cordarone) [place] Amlodipine No Notes: Memor ia 4-10 (Same as: l 14:00: Norvasc) [place] emtricitabi No Notes: Caesar lisa ne 200 MG / 4-10 (Same as: l tenofovir 14:00: Descovy) Herm ariel alafenamide 00 Non-formul 25 MG Oral nancy Tablet [Descovy] Sertraline No Notes: Memor ia 4-10 (Same as: l 14:00: Zoloft) [place] 00 pantoprazol No Notes: [place] lisa e 4-10 Tablet l 14:00: should not [place] 00 be chewed or crushed. (Same as: Protonix) Amiodarone No Notes: Memor ia 4-10 (Same as: l 14:00: Cordarone) [place] 00 Amlodipine No Notes: Memor ia 4-10 (Same as: l 14:00: Norvasc) [place] emtricitabi No Notes: [place] lisa ne 200 MG / 4-10 (Same as: l tenofovir 14:00: Descovy) Herm ariel alafenamide 00 Non-formul 25 MG Oral nancy Tablet [Descovy] Sertraline No Notes: Memor ia 4-10 (Same as: l 14:00: Zoloft) [place] 00 pantoprazol No Notes: [place] lisa e 4-10 Tablet l 14:00: should not [place] 00 be chewed or crushed. (Same as: Protonix) Amiodarone No Notes: Memor ia 4-10 (Same as: l 14:00: Cordarone) [place] Amlodipine No Notes: Memor ia 4-10 (Same as: l 14:00: Norvasc) [place] emtricitabi No Notes: Caesar lisa ne 200 MG / 4-10 (Same as: l tenofovir 14:00: Descovy) Herm ariel alafenamide 00 Non-formul 25 MG Oral nancy Tablet [Descovy] Sertraline No Notes: Memor ia 4-10 (Same as: l 14:00: Zoloft) [place] pantoprazol No Notes: [place] lisa e 4-10 Tablet l 14:00: should not [place] 00 be chewed or crushed. (Same as: Protonix) Amiodarone No Notes: Memor ia 4-10 (Same as: l 14:00: Cordarone) [place] 00 Amlodipine No Notes: Memor ia 4-10 (Same as: l 14:00: Norvasc) [place] emtricitabi No Notes: Caesar lisa ne 200 MG / 4-10 (Same as: l tenofovir 14:00: Descovy) Herm ariel alafenamide 00 Non-formul 25 MG Oral nancy Tablet [Descovy] Sertraline No Notes: Memor ia 4-10 (Same as: l 14:00: Zoloft) [place] 00 pantoprazol No Notes: [place] lisa e 4-10 Tablet l 14:00: should not [place] 00 be chewed or crushed. (Same as: Protonix) Amiodarone No Notes: Memor ia 4-10 (Same as: l 14:00: Cordarone) [place] Sucralfate No Notes: May M emoria 4-10 [...] 0.9% 4-10 (Same as: l 02:00: BD [place] 00 Posiflush) Eliquis No Notes: Memoria 4-10 Same as: l 02:00: Eliquis [place] Hydralazine No Notes: Caesar lisa Hydrochlori [...] Memoria 4-10 Same as: l 02:00: Eliquis [place] Hydralazine No Notes: [place] lisa Hydrochlori [...] M emoria 4-10 interfere l 02:00: w/enteral [place] 00 feeds - Take 1 hr [...] 0.9% 4-10 (Same as: l 02:00: BD [place] 00 Posiflush) Eliquis No Notes: Memoria [...] 0.9% 4-10 (Same as: l 02:00: BD [place] Posiflush) Eliquis No Notes: Memoria 4-10 Same as: l 02:00: Eliquis [place] 00 Hydralazine No Notes: Caesar lisa [...] 0.9% 4-10 (Same as: l 02:00: BD [place] Posiflush) Eliquis No Notes: Memoria 4-10 Same as: l 02:00: Eliquis [place] 00 Hydralazine No Notes: Caesar lisa [...] not exceed l #3 00:12: 4gm/day of [place] acetaminop hen. (Same as: Tylenol with Codeine # 3) acetaminoph No Notes: Do M emoria en-codeine 4-10 not exceed l #3 00:12: 4gm/day of [place] acetaminop hen. (Same as: Tylenol with Codeine # 3) acetaminoph No Notes: Do M emoria en-codeine 4-10 not exceed l #3 00:12: 4gm/day of [place] acetaminop hen. (Same as: Tylenol with [...] not exceed l #3 00:12: 4gm/day of [place] acetaminop hen. (Same as: Tylenol with [...] tartrate 4-09 tab, l 22:00: Route: PO, [place] 00 Drug form: TAB, BID, Dosing [...] oria 4-09 tab, l 22:00: Route: PO, [place] 00 Drug form: TAB, BID, Dosing Weight 97.273, kg, Start date: 08/29/20 17:00:00 CDT, Duration: 30 day, Stop date: 09/28/20 9:00:00 CDT metoprolol 1-0 No 100 mg, 1 Me moria tartrate 4-09 tab, l 22:00: Route: PO, [place] 00 Drug form: TAB, BID, Dosing [...] tartrate 4-09 tab, l 22:00: Route: PO, [place] 00 Drug form: TAB, BID, Dosing [...] tartrate 4- tab, l 22:00: Route: PO, [place] 00 Drug form: TAB, BID, Dosing [...] Notes: Memoria 4-09 (Same l 17:07: as:MORPhin [place] 00 e Sulfate) Morphine No Notes: [facility]oria 4-09 (Same l 17:07: as:MORPhin [place] 00 e Sulfate) Morphine No Notes: Memoria 4-09 (Same l 17:07: as:MORPhin [place] 00 e Sulfate) Morphine No Notes: Memoria 4-09 (Same l 17:07: as:MORPhin [place] 00 e Sulfate) Morphine 2021-0 No Notes: Memoria 4- (Same l 17:07: as:MORPhin [place] 00 e Sulfate) Morphine 2020-0 No Notes: Memoria 4- (Same l 17:07: as:MORPhin [place] 00 e Sulfate) buPROPion 1-0 No 150 [...] tab, PO, l oral 15:27: Daily, # [place] enteric 00 30 tab, 0 coated [...] tab, PO, l oral 15:27: Daily, # [place] enteric 00 30 tab, 0 coated [...] tab, PO, l oral 15:27: Daily, # [place] enteric 00 30 tab, 0 coated [...] tab, PO, l oral 15:26: Daily, # [place] enteric 00 30 tab, 0 coated [...] tab, PO, l oral 15:26: Daily, # [place] enteric 00 30 tab, 0 coated [...] tab, PO, l oral 15:26: Daily, # [place] enteric 00 30 tab, 0 coated [...] Skylar nn 00 tab, 0 Refill(s), Pharmacy: [facility] [id number], 162.56, cm, 08/29/20 5:30:00 CDT, Height, 97.273, kg, 08/29/20 5:30:00 CDT, Weight Saline No Notes: Memoria Flush 0.9% 4-09 (Same as: l 15:25: BD [place] 00 Posiflush) Lorazepam No Notes: Memori a 4-09 (Same as: l 15:25: Ativan) [place] 00 Saline No Notes: [facility] Flush 0.9% 4-09 (Same as: l 15:25: BD [place] 00 Posiflush) Lorazepam 2021-0 No Notes: Memori a 4-09 (Same as: l 15:25: Ativan) [place] 00 Saline No Notes: [facility] Flush 0.9% 4-09 (Same as: l 15:25: BD [place] 00 Posiflush) Saline No Notes: [facility] Flush 0.9% 4-09 (Same as: l 15:25: BD [place] 00 Posiflush) Lorazepam No Notes: Memori a 4-09 (Same as: l 15:25: Ativan) [place] Lorazepam No Notes: Memori a 4-09 (Same [...] 0.9% 4-09 (Same as: l 15:25: BD [place] 00 Posiflush) Lorazepam No Notes: Memori a 4-09 (Same as: l 15:25: Ativan) Isuprel HCl No Route: IV, Memoria (ANES) 0.2 4-09 Drug form: l mg + 15:00: INJ, [place] Dosing Weight 97.3, kg, Start date: 08/29/20 [...] Drug form: l mg + 15:00: INJ, [place] 00 Dosing Weight 97.3, kg, Start [...] 08-29 Drug form: l 14:49: INJ, ONCE, [place] 00 Stop date: 08/29/20 9:49:00 CDT heparin 202-0 No Route: IV, Caesar lisa (ANES) 08-29 Drug form: l 14:49: INJ, ONCE, [place] 00 Stop date: 08/29/20 9:49:00 CDT heparin [...] 08-29 Drug form: l 14:29: INJ, ONCE, [place] 00 Stop date: 08/29/20 9:29:00 CDT propofol [...] Memori a 08-29 Route: l 14:01: IVP, [place] 00 Q5Min, Dosing Weight 97.273, kg, [...] oria ne 08-29 Route: l 14:01: IVP, [place] 00 Q5Min, Dosing Weight 97.273, kg, PRN Pain Score 7-10, Start date: 08/29/20 9:01:00 CDT, Duration: 4 doses or times, Stop date: Limited # of times Flumazenil 1-0 No 0.2 mg, Caesar lisa 08-29 Route: l 14:01: IVP, PRN, [place] 00 Dosing Weight 97.273, kg, PRN Benzodiaze pine Reversal, Initial dose, Start date: 08/29/20 9:01:00 CDT, Duration: 30 day, Stop date: 09/28/20 9:00:00 CDT Naloxone 1-0 No 0.4 mg, Memori a 08-29 Route: l 14:01: IVP, [place] 00 Q2MIN, Dosing Weight 97.273, kg, [...] Memori a 08-29 Route: l 14:01: IVP, [place] 00 Q2MIN, Dosing Weight 97.273, kg, PRN Narcotic Reversal, Start date: 08/29/20 9:01:00 CDT, Duration: 8 doses or times, Stop date: Limited # of times Ondansetron 1-0 No 4 mg, Memor ia 08-29 Route: l 14:01: IVP, ONCE, [place] 00 Dosing Weight 97.273, kg, PRN [...] oria ne 08-29 Route: l 14:01: IVP, [place] 00 Q5Min, Dosing Weight 97.273, kg, [...] Memori a 08-29 Route: l 14:01: IVP, [place] 00 Q5Min, Dosing Weight 97.273, kg, [...] Memori a 08-29 Route: l 14:01: IVP, [place] 00 Q5Min, Dosing Weight 97.273, kg, [...] lisa 08-29 Route: l 14:01: IVP, PRN, [place] 00 Dosing Weight 97.273, kg, PRN Benzodiaze pine Reversal, Initial dose, Start date: 08/29/20 9:01:00 CDT, Duration: 30 day, Stop date: 09/28/20 9:00:00 CDT Naloxone 2021-0 No 0.4 mg, Memori a 08-29 Route: l 14:01: IVP, [place] 00 Q2MIN, Dosing Weight 97.273, kg, [...] Memori a 08-29 Route: l 14:01: IVP, [place] 00 Q2MIN, Dosing Weight 97.273, kg, [...] Memori a 08-29 Route: l 14:01: IVP, [place] 00 Q5Min, Dosing Weight 97.273, kg, PRN Elevated BP, Start date: 08/29/20 9:01:00 CDT, Duration: 5 doses or times, Stop date: Limited # of times Acetaminoph 2021-0 No 1,000 mg, M emoria en 08-29 Route: PO, l 14:01: Drug form: [place] 00 TAB, ONCE, Dosing Weight 97.273, [...] lisa 08-29 Route: l 14:01: IVP, PRN, [place] Dosing Weight 97.273, kg, PRN Benzodiaze [...] ia 08-29 Route: l 14:01: IVP, ONCE, [place] Dosing Weight 97.273, kg, PRN Nausea & [...] oria ne 08-29 Route: l 14:01: IVP, [place] 00 Q5Min, Dosing Weight 97.273, kg, PRN Pain Score 7-10, Start date: 08/29/20 9:01:00 CDT, Duration: 4 doses or times, Stop date: Limited # of times Flumazenil 2020-0 No 0.2 mg, Caesar lisa 08-29 Route: l 14:01: IVP, PRN, [place] 00 Dosing Weight 97.273, kg, PRN [...] 08-29 Drug form: l 13:42: INJ, ONCE, [place] Stop date: 08/29/20 8:42:00 CDT fentaNYL 2020-0 No Route: IV, Mem oria (ANES) 08-29 Drug form: l 13:42: INJ, ONCE, [place] Stop date: 08/29/20 8:42:00 CDT fentaNYL 2020- No Route: IV, Mem oria (ANES) 08-29 Drug form: l 13:42: INJ, ONCE, [place] Stop date: 08/29/20 8:42:00 CDT norepinephr 2020-0 No Route: IV, Memoria ine (ANES) 08-29 Drug form: l 10 13:15: INJ, Start [place] microgram date: 08/29/20 8:15:00 CDT, Stop [...] Drug form: l 10 13:15: INJ, Start [place] microgram 00 date: 08/29/20 8:15:00 CDT, Stop date: 08/29/20 9:15:00 CDT norepinephr 2020-0 No Route: IV, Memoria ine (ANES) 08-29 Drug form: l 10 13:15: INJ, Start [place] microgram 00 date: 08/29/20 8:15:00 CDT, Stop date: 08/29/20 9:15:00 CDT norepinephr 2020-0 No Route: IV, Memoria ine (ANES) 4-09 Drug form: l 10 13:15: INJ, Start [place] microgram 00 date: 08/29/20 8:15:00 CDT, Stop date: 08/29/20 9:15:00 CDT norepinephr 2020-0 No Route: IV, Memoria ine (ANES) 4-09 Drug form: l 10 13:15: INJ, Start [place] microgram 00 date: 08/29/20 8:15:00 CDT, [...] 4-09 Total l 0.9% IV 12:30: Volume: [place] (ANES) 1000 00 1,000, mL Start date: 08/29/20 7:30:00 CDT, Stop date: 08/29/20 8:30:00 CDT Sodium 202-0 No Route: IV, Memor ia Chloride 4-09 Total l 0.9% IV 12:30: Volume: [place] (ANES) 1000 00 1,000, mL Start date: 08/29/20 7:30:00 CDT, Stop date: 08/29/20 8:30:00 CDT Sodium 2020-0 No Route: IV, Memor ia Chloride 4-09 Total l 0.9% IV 12:30: Volume: [place] (ANES) 1000 00 1,000, mL Start date: 08/29/20 7:30:00 CDT, Stop date: 08/29/20 8:30:00 CDT Sodium 2020-0 No Route: IV, Memor ia Chloride 4-09 Total l 0.9% IV 12:30: Volume: [place] (ANES) 1000 00 1,000, mL Start [...] n 00 tab, 0 Refill(s) 24 HR 2021-0 Yes 150 mg = 1 Memori a Bupropion -09 tab, PO, l Hydrochlori 11:42: Q24H, # 30 [place] de 150 MG 00 tab, 0 Extended Refill(s) Release Tablet 24 HR Yes 150 mg = 1 Memori a Bupropion 4-09 tab, PO, l Hydrochlori 11:42: Q24H, # 30 [place] de 150 MG 00 tab, 0 Extended Refill(s) Release Tablet 24 HR Yes 150 mg = 1 Memori a Bupropion -09 tab, PO, l Hydrochlori 11:42: Q24H, # 30 [place] de 150 MG 00 tab, 0 Extended Refill(s) Release Tablet 24 HR Yes 150 mg = 1 Memori a Bupropion - tab, PO, l Hydrochlori 11:42: Q24H, # 30 [place] de 150 MG 00 tab, 0 [...] 4- Q12H, tab, l Tablet 11:41: 0 [place] [Eliquis] 00 Refill(s), For Atrial Fibrilatio n apixaban 0 Yes 5 mg, PO, Me moria MG Oral 4 Q12H, tab, l Tablet 11:41: 0 [place] [Eliquis] 00 Refill(s), For Atrial Fibrilatio n apixaban 5 2020-0 Yes 5 mg, PO, Me moria MG Oral 08-29 Q12H, tab, l Tablet 11:41: 0 [place] [Eliquis] 00 Refill(s), For Atrial Fibrilatio [...] tab, PO, l tablet 11:38: Daily, # [place] 00 90 tab, 3 Refill(s) AMIODarone 0 Yes 200 mg = 1 M emoria 200 mg oral -09 tab, PO, l tablet 11:38: Daily, # [place] 00 90 tab, 3 Refill(s) AMIODarone 0 Yes 200 mg = 1 M emoria 200 mg oral 4-09 tab, PO, l tablet 11:38: Daily, # [place] 00 90 tab, 3 Refill(s) AMIODarone 2020-0 Yes 200 mg = 1 M emoria 200 mg oral 4-09 tab, PO, l tablet 11:38: Daily, # [place] 00 90 tab, 3 Refill(s) AMIODarone Yes 200 mg = 1 M emoria 200 mg oral 4-09 tab, PO, l tablet 11:38: Daily, # [place] 00 90 tab, 3 Refill(s) AMIODarone Yes [...] 200mg Take 1 Univ ers 200 mg 4- tablet by ity of tablet 00:00: mouth. [place] [facility] apixaban 2020-0 Yes 5 mg, PO, Un matt mg tablet 4-09 Q12H, tab, ity of 00:00: 0 [place] [address] Refill(s), Medical For Atrial Branch Fibrilatio n apixaban 2020-0 Yes 5 mg, PO, Un matt mg tablet 4-09 Q12H, tab, ity of 00:00: 0 [place] 00 Refill(s), Medical For Atrial Branch Fibrilatio n apixaban 5 2020-0 Yes 5 mg, PO, Un matt mg tablet 08-29 Q12H, tab, ity of 00:00: 0 [place] Refill(s), Medical For Atrial Branch Fibrilatio n apixaban 5 2020-0 Yes 5 mg, PO, Un matt mg tablet 08-29 Q12H, tab, ity of 00:00: 0 [place] Refill(s), Medical For Atrial Branch Fibrilatio n apixaban 5 2020-0 Yes 5 mg, PO, Un matt mg tablet 08-29 Q12H, tab, ity of 00:00: 0 [place] [address] Refill(s), Medical For Atrial Branch Fibrilatio n amiodarone 0 2022- No 200mg Take 1 Uni vers 200 mg 08-29 tablet by ity of tablet 00:00: 00:00 mouth. [place] 00 :00 Medical Branch pantoprazol 0 2020- No Metho di e [...] mg EC 1-11 ity of tablet 00:00: Medical Branch atorvastati 2019-05 Yes AT BEDTIME Univers n 80 mg 1-11 ity of tablet 00:00: Medical Branch aspirin 81 2019- Yes DAILY Univer s mg EC 1-11 ity of tablet 00:00: Medical Branch aspirin 81 2019-05 Yes DAILY Univer s mg EC 1-11 ity of tablet 00:00: [place] [facility] aspirin 81 2019-05 Yes DAILY Univer s mg EC 1-11 ity of tablet 00:00: [place] [facility] aspirin 81 2019-05 Yes DAILY Univer s mg EC 1-11 ity of tablet 00:00: [place] [facility] atorvastati 2019-05- No AT BEDTIME Univers n 80 mg 1-11 - ity of tablet 00:00: 00:00 [place] 00 :00 Medical Branch lisinopril 2019-05 Yes 40mg Take [...] Completed Unive rsity of PFIZER VACCINE 00:00:00 [facility] SARS-COV-2 COVID-19 2020-07-23 Completed Unive rsity of PFIZER VACCINE 00:00:00 [facility] SARS-COV-2 COVID-19 2020-07-23 Completed Unive rsity of PFIZER VACCINE 00:00:00 [facility] SARS-COV-2 COVID-19 2020-07-23 Completed Unive rsity of PFIZER VACCINE 00:00:00 [facility] SARS-COV-2 COVID-19 2020-07-23 Completed Unive rsity of PFIZER VACCINE 00:00:00 [facility] SARS-COV-2 COVID-19 2020-07-23 Completed Unive rsity of PFIZER VACCINE 00:00:00 [facility] SARS-COV-2 COVID-19 2020-07-23 Completed Unive rsity of PFIZER VACCINE 00:00:00 [facility] SARS-COV-2 COVID-19 2020-07-23 Completed Unive rsity of PFIZER VACCINE 00:00:00 [facility] SARS-COV-2 COVID-19 2020-07-23 Completed Unive rsity of PFIZER VACCINE 00:00:00 [facility] SARS-COV-2 COVID-19 2020-07-23 Completed Unive rsity of PFIZER VACCINE 00:00:00 [facility] SARS-COV-2 COVID-19 2020-07-23 Completed Unive rsity of PFIZER VACCINE 00:00:00 [facility] SARS-COV-2 COVID-19 2020-07-23 Completed Unive rsity of PFIZER VACCINE 00:00:00 [facility] SARS-COV-2 COVID-19 2020-07-23 Completed Unive rsity of PFIZER VACCINE 00:00:00 [facility] SARS-COV-2 COVID-19 2020-07-23 Completed Unive rsity of PFIZER VACCINE 00:00:00 [facility] SARS-COV-2 COVID-19 2020-07-23 Completed Unive rsity of PFIZER VACCINE 00:00:00 [facility] SARS-COV-2 COVID-19 2020-07-23 Completed Unive rsity of PFIZER VACCINE 00:00:00 [facility] SARS-COV-2 COVID-19 2020-07-23 Completed Unive rsity of PFIZER VACCINE 00:00:00 [facility] SARS-COV-2 COVID-19 2020-07-23 Completed Unive rsity of PFIZER VACCINE 00:00:00 [facility] SARS-COV-2 COVID-19 2020-07-23 Completed Unive rsity of PFIZER VACCINE 00:00:00 [facility] SARS-COV-2 COVID-19 2020-07-23 Completed Unive rsity of PFIZER VACCINE 00:00:00 [facility] PFIZER COVID-19 2020-07-23 Completed [facility] PFIZER COVID-19 2020-07-23 Completed [facility]:00 [facility] PFIZER COVID-19 2020-07-23 Completed [facility] 00:00:00 [facility] PFIZER COVID-19 2020-07-23 Completed [facility]ACC[facility] 00:00:00 [facility] PFIZER COVID-19 2020-07-23 Completed [facility] VACCIN[facility] 00:00:00 [facility] PFIZER COVID-19 2020-07-23 Completed [facility] VACC[facility] 00:00:00 [facility] PFIZER COVID-19 2020-07-23 Completed [facility] VACC[facility] 00:00:00 [facility] PFIZER COVID-19 2020-07-23 Completed [facility] VACCIN[facility] 00:00:00 [facility] PFIZER COVID-19 2020-07-23 Completed [facility] VACC[facility] 00:00:00 [facility] PFIZER COVID-19 2020-07-23 Completed [facility] VACC[facility] 00:00:00 [facility] PFIZER COVID-19 2020-07-23 Completed [facility] VACCINATION 00:00:00 [facility] PFIZER COVID-19 2020-07-23 Completed [facility] VACCIN[facility] 00:00:00 [facility] PFIZER COVID-19 2020-07-23 Completed [facility] VACCINATION 00:00:00 [facility] PFIZER COVID-19 2020-07-23 Completed [facility] VACCINATION 00:00:00 [facility] PFIZER COVID-19 2020-07-23 Completed [facility] VACCINATION 00:00:00 [facility] PFIZER COVID-19 2020-07-23 Completed [facility] VACCINATION 00:00:00 [facility] PFIZER COVID-19 2020-07-23 Completed [facility] VACCINATION 00:00:00 [facility] PFIZER COVID-19 2020-07-23 Completed [facility] VACCINATION 00:00:00 [facility] PFIZER COVID-19 2020-07-23 Completed [facility] VACCINATION 00:00:00 [facility] PFIZER COVID-19 2020-07-23 Completed [facility] VACCINATION 00:00:00 [facility] PFIZER COVID-19 2020-07-23 Completed [facility] VACCINATION 00:00:00 [facility] PFIZER COVID-19 2020-07-23 Completed [facility] VACCINATION 00:00:00 [facility] PFIZER COVID-19 2020-07-23 Completed [facility] VACCINATION 00:00:00 [facility] PFIZER COVID-19 2020-07-23 Completed [facility] VACCIN[facility] 00:00:00 [facility] PEG COVID-19 2020-07-23 Completed [facility] VACCIN[facility] 00:00:00 [facility] PEG COVID-19 2020-07-23 Completed [facility] VACCINATION 00:00:00 [facility] PFIZER COVID-19 2020-07-23 Completed [facility] VACCINATION 00:00:00 [facility] PEG COVID-19 2020-07-23 Completed [facility] VACCINATION 00:00:00 [facility] PFIZER COVID-19 2020-07-23 Completed [facility] VACCINATION 00:00:00 [facility] PEG COVID-19 2020-07-23 Completed [facility] VACCINATION 00:00:00 [facility] PEG COVID-19 2020-07-23 Completed [facility] VACCINATION 00:00:00 [facility] PEG COVID-19 2020-07-23 Completed [facility] VACCINATION 00:00:00 [facility] PEG COVID-19 2020-07-23 Completed [facility] VACCINATION 00:00:00 [facility] PEG COVID-19 2020-07-23 Completed [facility] VACCINATION 00:00:00 [facility] PEG COVID-19 2020-07-23 Completed [facility] VACCINATION 00:00:00 [facility] PEG COVID-19 2020-07-23 Completed [facility] VACCINATION 00:00:00 [facility] PEG COVID-19 2020-07-23 Completed [facility] VACCINATION 00:00:00 [facility] PFIZER COVID-19 2020-07-23 Completed [facility] VACCINATION 00:00:00 [facility] PEG COVID-19 2020-07-23 Completed [facility] VACC[facility] 00:00:00 [facility] PFIZER COVID-19 2020-07-23 Completed [facility] VACC[facility] 00:00:00 [facility] PFIZER COVID-19 2020-07-23 Completed [facility] VACC[facility] 00:00:00 [facility] PFIZER COVID-19 2020-07-23 Completed [facility] VACC[facility] 00:00:00 [facility] PFIZER COVID-19 2020-07-23 Completed [facility]ACC[facility] 00:00:00 [facility] PFIZER COVID-19 2020-07-23 Completed [facility]ACC[facility] 00:00:00 [facility] TRAYID-19 2020-07-23 Completed [facility] VACC[facility] 00:00:00 [facility] PFIZER COVID-19 2020-07-23 Completed [facility] VACC[facility] 00:00:00 [facility] PFIZER COVID-19 2020-07-23 Completed [facility] VACC[facility] 00:00:00 [facility] PEG COVID-19 2020-07-23 Completed [facility] VACC[facility] 00:00:00 [facility] PEG COVID-19 2020-07-23 Completed [facility] VACC[facility] 00:00:00 [facility] PFIZER COVID-19 2020-07-23 Completed [facility] VACC[facility] 00:00:00 [facility] PEG COVID-19 2020-07-23 Completed [facility]ACC[facility] 00:00:00 [facility] PEG COVID-19 2020-07-23 Completed [facility] 00:00:00 [facility] PEG COVID-19 2020-07-23 Completed [facility] 00:00:00 [facility] PEG COVID-19 2020-07-23 Completed [facility] 00:00:00 [facility] PEG COVID-19 2020-07-23 Completed [facility] 00:00:00 [facility] PEG COVID-19 2020-07-23 Completed [facility] 00:00:00 [facility] PEG COVID-19 2020-07-23 Completed [facility] 00:00:00 [facility] PEG COVID-19 2020-07-23 Completed [facility] 00:00:00 [facility] PEG COVID-19 2020-07-23 Completed [facility] 00:00:00 [facility] PEG COVID-19 2020-07-23 Completed [facility] 00:00:00 [facility] PFIZER COVID-19 2020-07-23 Completed [facility] 00:00:00 [facility] PEG COVID-19 2020-07-23 Completed [facility] 00:00:00 [facility] PFIZER COVID-19 2020-07-23 Completed [facility] 00:00:00 [facility] PFIZER COVID-19 2020-07-23 Completed [facility] 00:00:00 [facility] PFIZER COVID-19 2020-07-23 Completed [facility] 00:00:00 [facility] PFIZER COVID-19 2020-07-23 Completed [facility] 00:00:00 [facility] PFIZER COVID-19 2020-07-23 Completed [facility]:00 [facility] PFIZER COVID-19 2020-07-23 Completed [facility] 00:00:00 [facility] SARS-COV-2 COVID-19 2020-07-02 Completed [facility] PFIZER VACCINE 00:00:00 [facility] SARS-COV-2 COVID-19 2020-07-02 Completed [facility] of PFIZER VACCINE 00:00:00 [facility] SARS-COV-2 COVID-19 2020-07-02 Completed [facility] of PFIZER VACCINE 00:00:00 [facility] SARS-COV-2 COVID-19 2020-07-02 Completed [facility] of PFIZER VACCINE 00:00:00 [facility] SARS-COV-2 COVID-19 2020-07-02 Completed [facility] PFIZER VACCINE 00:00:00 [facility] SARS-COV-2 COVID-19 2020-07-02 Completed [facility] of PFIZER VACCINE 00:00:00 [facility] SARS-COV-2 COVID-19 2020-07-02 Completed [facility] PFIZER VACCINE 00:00:00 [facility] SARS-COV-2 COVID-19 2020-07-02 Completed [facility] of PFIZER VACCINE 00:00:00 [facility] SARS-COV-2 COVID-19 2020-07-02 Completed [facility] of PFIZER VACCINE 00:00:00 [facility] SARS-COV-2 COVID-19 2020-07-02 Completed [facility] of PFIZER VACCINE 00:00:00 [facility] SARS-COV-2 COVID-19 2020-07-02 Completed [facility] of PFIZER VACCINE 00:00:00 [facility] SARS-COV-2 COVID-19 2020-07-02 Completed [facility] of PFIZER VACCINE 00:00:00 [facility] SARS-COV-2 COVID-19 2020-07-02 Completed [facility] PFIZER VACCINE 00:00:00 [facility] SARS-COV-2 COVID-19 2020-07-02 Completed [facility] PFIZER VACCINE 00:00:00 [facility] SARS-COV-2 COVID-19 2020-07-02 Completed [facility] PFIZER VACCINE 00:00:00 [facility] SARS-COV-2 COVID-19 2020-07-02 Completed [facility] PFIZER VACCINE 00:00:00 [facility] SARS-COV-2 COVID-19 2020-07-02 Completed [facility] PFIZER VACCINE 00:00:00 [facility] SARS-COV-2 COVID-19 2020-07-02 Completed [facility] PFIZER VACCINE 00:00:00 [facility] SARS-COV-2 COVID-19 2020-07-02 Completed [facility] PFIZER VACCINE 00:00:00 [facility] SARS-COV-2 COVID-19 2020-07-02 Completed [facility] PFIZER VACCINE 00:00:00 [facility] PFIZER COVID-19 2020-07-02 Completed [facility] 00:00:00 [facility] PFIZER COVID-19 2020-07-02 Completed [facility] 00:00:00 [facility] PFIZER COVID-19 2020-07-02 Completed [facility] 00:00:00 [facility] PFIZER COVID-19 2020-07-02 Completed [facility] 00:00:00 [facility] PFIZER COVID-19 2020-07-02 Completed [facility] 00:00:00 [facility] PFIZER COVID-19 2020-07-02 Completed [facility] 00:00:00 [facility] PFIZER COVID-19 2020-07-02 Completed [facility] 00:00:00 [facility] PFIZER COVID-19 2020-07-02 Completed [facility] 00:00:00 [facility] PFIZER COVID-19 2020-07-02 Completed [facility] 00:00:00 [facility] PFIZER COVID-19 2020-07-02 Completed [facility] 00:00:00 [facility] PFIZER COVID-19 2020-07-02 Completed [facility]:00:00 [facility] PFIZER COVID-19 2020-07-02 Completed [facility] 00:00:00 [facility] PFIZER COVID-19 2020-07-02 Completed [facility] 00:00:00 [facility] PFIZER COVID-19 2020-07-02 Completed [facility]:00:00 [facility] PFIZER COVID-19 2020-07-02 Completed [facility] 00:00:00 [facility] PFIZER COVID-19 2020-07-02 Completed [facility] 00:00:00 [facility] PFIZER COVID-19 2020-07-02 Completed [facility] 00:00:00 [facility] PFIZER COVID-19 2020-07-02 Completed [facility] 00:00:00 [facility] PFIZER COVID-19 2020-07-02 Completed [facility] 00:00:00 [facility] PFIZER COVID-19 2020-07-02 Completed [facility] 00:00:00 [facility] PFIZER COVID-19 2020-07-02 Completed [facility] 00:00:00 [facility] PFIZER COVID-19 2020-07-02 Completed [facility] 00:00:00 [facility] PFIZER COVID-19 2020-07-02 Completed [facility] 00:00:00 [facility] PFIZER COVID-19 2020-07-02 Completed [facility] 00:00:00 [facility] PEG COVID-19 2020-07-02 Completed [facility] 00:00:00 [facility] PFIZER COVID-19 2020-07-02 Completed [facility] 00:00:00 [facility] PFIZER COVID-19 2020-07-02 Completed [facility] 00:00:00 [facility] PFIZER COVID-19 2020-07-02 Completed [facility] 00:00:00 [facility] PFIZER COVID-19 2020-07-02 Completed [facility] 00:00:00 [facility] PFIZER COVID-19 2020-07-02 Completed [facility] 00:00:00 [facility] PFIZER COVID-19 2020-07-02 Completed [facility] 00:00:00 [facility] PFIZER COVID-19 2020-07-02 Completed [facility] 00:00:00 [facility] PFIZER COVID-19 2020-07-02 Completed [facility] 00:00:00 [facility] PFIZER COVID-19 2020-07-02 Completed [facility] 00:00:00 [facility] PFIZER COVID-19 2020-07-02 Completed [facility] 00:00:00 [facility] PFIZER COVID-19 2020-07-02 Completed [facility] 00:00:00 [facility] PFIZER COVID-19 2020-07-02 Completed [facility] 00:00:00 [facility] PFIZER COVID-19 2020-07-02 Completed [facility] 00:00:00 [facility] PFIZER COVID-19 2020-07-02 Completed [facility] 00:00:00 [facility] PFIZER COVID-19 2020-07-02 Completed [facility] 00:00:00 [facility] PFIZER COVID-19 2020-07-02 Completed [facility] 00:00:00 [facility] PFIZER COVID-19 2020-07-02 Completed [facility] 00:00:00 [facility] PFIZER COVID-19 2020-07-02 Completed [facility] 00:00:00 [facility] PFIZER COVID-19 2020-07-02 Completed [facility] 00:00:00 [facility] PFIZER COVID-19 2020-07-02 Completed [facility] 00:00:00 [facility] PFIZER COVID-19 2020-07-02 Completed [facility] 00:00:00 [facility] PFIZER COVID-19 2020-07-02 Completed [facility] 00:00:00 [facility] PFIZER COVID-19 2020-07-02 Completed [facility] 00:00:00 [facility] PFIZER COVID-19 2020-07-02 Completed [facility] 00:00:00 [facility] PFIZER COVID-19 2020-07-02 Completed [facility] 00:00:00 [facility] PFIZER COVID-19 2020-07-02 Completed [facility] 00:00:00 [facility] PFIZER COVID-19 2020-07-02 Completed [facility] 00:00:00 [facility] PFIZER COVID-19 2020-07-02 Completed [facility] 00:00:00 [facility] PFIZER COVID-19 2020-07-02 Completed [facility] 00:00:00 [facility] PFIZER COVID-19 2020-07-02 Completed [facility] 00:00:00 [facility] PFIZER COVID-19 2020-07-02 Completed [facility] 00:00:00 [facility] PFIZER COVID-19 2020-07-02 Completed [facility] 00:00:00 [facility] PFIZER COVID-19 2020-07-02 Completed [facility] 00:00:00 [facility] PFIZER COVID-19 2020-07-02 Completed [facility] 00:00:00 [facility] PFIZER COVID-19 2020-07-02 Completed [facility] 00:00:00 [facility] PFIZER COVID-19 2020-07-02 Completed [facility] 00:00:00 [facility] PFIZER COVID-19 2020-07-02 Completed [facility]:00:00 [facility] PFIZER COVID-19 2020-07-02 Completed [facility]:00:00 [facility] PFIZER COVID-19 2020-07-02 Completed [facility]:00:00 [facility] PFIZER COVID-19 2020-07-02 Completed [facility] 00:00:00 [facility] PFIZER COVID-19 2020-07-02 Completed [facility] 00:00:00 [facility] PFIZER COVID-19 2020-07-02 Completed [facility] 00:00:00 [facility] PFIZER COVID-19 2020-07-02 Completed [facility] 00:00:00 [facility] [...] Vaccine (3+ yrs) 00:00:00 [facility] Pneumococcal 13 2014-01-30 Completed [facility] Conjugate, PCV13 00:00:00 [facility] dical (Prevnar 13) Branch Influenza Virus 2014-01-30 Completed [facility] Vaccine (3+ yrs) 00:00:00 [facility] Pneumococcal 13 2014-01-30 Completed [facility] Conjugate, PCV13 00:00:00 [facility] dical (Prevnar 13) Branch Influenza Virus 2014-01-30 Completed [facility] Vaccine (3+ yrs) 00:00:00 [facility] Pneumococcal 13 2014-01-30 Completed [facility] Conjugate, PCV13 00:00:00 [facility] dical (Prevnar 13) Branch Influenza Virus 2014-01-30 Completed [facility] Vaccine (3+ yrs) 00:00:00 [facility] Pneumococcal 13 2014-01-30 Completed [facility] Conjugate, PCV13 00:00:00 [facility] dical (Prevnar 13) Branch Influenza Virus 2014-01-30 Completed [facility] Vaccine (3+ yrs) 00:00:00 [facility] Pneumococcal 13 2014-01-30 Completed [facility] Conjugate, PCV13 00:00:00 [facility] dical (Prevnar 13) Branch Influenza Virus 2014-01-30 Completed [facility] Vaccine (3+ yrs) 00:00:00 [facility] Pneumococcal 13 2014-01-30 Completed [facility] y [...] y of Conjugate, PCV13 00:00:00 [facility] dical (Prevnar 13) Branch Influenza Virus 2014-01-30 Completed [facility] Vaccine (3+ yrs) 00:00:00 [facility] Pneumococcal 13 2014-01-30 Completed [facility] Conjugate, PCV13 00:00:00 [facility] (Prevnar 13) [facility] Influenza Virus 2014-01-30 Completed [facility] Vaccine (3+ yrs) 00:00:00 [facility] dical Branch Pneumococcal 13 2014-01-30 Completed [facility] of Conjugate, PCV13 00:00:00 [facility] dical (Prevnar 13) Branch Influenza Virus 2014-01-30 Completed [facility] Vaccine (3+ yrs) 00:00:00 [facility] dical Branch Pneumococcal 13 2014-01-30 Completed [facility] Conjugate, PCV13 00:00:00 [facility] (Prevnar 13) Branch Influenza Virus 2014-01-30 Completed [facility] Vaccine (3+ yrs) 00:00:00 [facility] Pneumococcal 13 2014-01-30 Completed [facility] Conjugate, PCV13 00:00:00 [facility] (Prevnar 13) Branch Influenza Virus 2014-01-30 Completed [facility] Vaccine (3+ yrs) 00:00:00 [facility] dical Branch Pneumococcal 13 2014-01-30 Completed [facility] of Conjugate, PCV13 00:00:00 [facility] dical (Prevnar 13) Branch Influenza Virus [...] y of Conjugate, PCV13 00:00:00 [facility] dical (Prevnar 13) Branch Influenza Virus 2014-01-30 Completed [facility] Vaccine (3+ yrs) 00:00:00 [facility] dical Branch Pneumococcal 13 2014-01-30 Completed [facility] of Conjugate, PCV13 00:00:00 [facility] dical (Prevnar 13) Branch Influenza Virus 2014-01-30 Completed [facility] Vaccine (3+ yrs) 00:00:00 [facility] dical Branch Pneumococcal 13 2014-01-30 Completed [facility] of Conjugate, PCV13 00:00:00 [facility] dical (Prevnar 13) Branch Pneumococcal 2012-02-16 [...] 2011-09-01 Completed [facility] Dosage 00:00:00 [facility] Hep B, Adol or Pedi 2011-09-01 Completed [facility] Dosage 00:00:00 [facility] Hep B, Adol or Pedi [...] 2011-03-17 Completed [facility] Dosage 00:00:00 [facility] Hep B, Adol or Pedi 2011-03-17 Completed [facility] Dosage 00:00:00 [facility] Hep B, Adol or Pedi 2011-03-17 Completed [facility] Dosage 00:00:00 [facility] Hep B, Adol or Pedi 2011-03-17 Completed [facility] of Dosage 00:00:00 [facility] Hep B, Adol or Pedi [...] 2011-02-10 Completed [facility] Vaccine 00:00:00 [facility] Hep B, Adol or Pedi 2011-02-10 Completed [facility] Dosage 00:00:00 [facility] Influenza Virus 2011-02-10 Completed [facility] Vaccine 00:00:00 [facility] Hep B, Adol or Pedi 2011-02-10 Completed [facility] Dosage 00:00:00 [facility] Influenza Virus 2011-02-10 Completed [facility] Vaccine 00:00:00 [facility] Hep B, Adol or Pedi 2011-02-10 Completed [facility] Dosage 00:00:00 [facility] Influenza Virus 2011-02-10 Completed [facility] Vaccine 00:00:00 [facility] Hep B, Adol or Pedi 2011-02-10 Completed [facility] of Dosage 00:00:00 [facility] Influenza Virus 2011-02-10 Completed [facility] Vaccine 00:00:00 [facility] Hep B, Adol or Pedi 2011-02-10 Completed [facility] of Dosage 00:00:00 [facility] Influenza Virus 2011-02-10 Completed [facility] Vaccine 00:00:00 [facility] Hep B, Adol or Pedi [...] 2011-02-10 Completed [facility] Vaccine 00:00:00 [facility] Hep B, Adol or Pedi 2011-02-10 Completed [facility] of Dosage 00:00:00 [facility] Influenza Virus 2011-02-10 Completed [facility] Vaccine 00:00:00 [facility] Hep B, Adol or Pedi 2011-02-10 Completed [facility] of Dosage 00:00:00 [facility] Influenza Virus 2011-02-10 Completed [facility] Vaccine 00:00:00 [facility] Hep B, Adol or Pedi 2011-02-10 Completed [facility] of Dosage 00:00:00 [facility] Influenza Virus 2011-02-10 Completed [facility] Vaccine 00:00:00 [facility] Hep B, Adol or Pedi 2011-02-10 Completed [facility] of Dosage 00:00:00 [facility] Influenza Virus 2011-02-10 Completed [facility] Vaccine 00:00:00 [facility] Hep B, Adol or Pedi 2011-02-10 Completed [facility] Dosage 00:00:00 [facility] Influenza Virus 2011-02-10 Completed [facility] Vaccine 00:00:00 [facility] Hep B, Adol or Pedi [...] (TB) 2010-11-18 Completed [facility] 00:00:00 [facility] TDAP (ADACEL) 2010-11-18 Completed [facility] VACCINE 00:00:00 [facility] PPD (TB) 2010-11-18 Completed [facility] of 00:00:00 [facility] TDAP (ADACEL) 2010-11-18 Completed [facility] of VACCINE 00:00:00 [facility] PPD (TB) 2010-11-18 Completed [facility] of 00:00:00 [facility] TDAP (ADACEL) 2010-11-18 Completed [facility] of VACCINE 00:00:00 [facility] PPD (TB) 2010-11-18 Completed [facility] of 00:00:00 [facility] TDAP (ADACEL) 2010-11-18 Completed [facility] of VACCINE 00:00:00 [facility] PPD (TB) 2010-11-18 Completed [facility] of 00:00:00 [facility] TDAP (ADACEL) 2010-11-18 Completed University [...] PPD (TB) 2010-11-18 Completed [facility] 00:00:00 [facility] TDAP (ADACEL) 2010-11-18 Completed [facility] of VACCINE 00:00:00 [facility] PPD (TB) 2010-11-18 Completed [facility] of 00:00:00 [facility] TDAP (ADACEL) 2010-11-18 Completed [facility] of VACCINE 00:00:00 [facility] PPD (TB) 2010-11-18 Completed [facility] of 00:00:00 [facility] TDAP (ADACEL) 2010-11-18 Completed [facility] of VACCINE 00:00:00 [facility] PPD (TB) 2010-11-18 Completed [facility] of 00:00:00 [facility] TDAP (ADACEL) 2010-11-18 Completed [facility] of VACCINE 00:00:00 [facility] PPD (TB) 2010-11-18 Completed [facility] of 00:00:00 [facility] TDAP (ADACEL) 2010-11-18 Completed [facility] of VACCINE 00:00:00 [facility] PPD (TB) 2010-11-18 Completed [facility] of 00:00:00 [facility] TDAP (ADACEL) 2010-11-18 Completed [facility] of VACCINE 00:00:00 [facility] PPD (TB) 2010-11-18 Completed [facility] of 00:00:00 [facility] TDAP (ADACEL) 2010-11-18 Completed [facility] of VACCINE 00:00:00 [facility] PPD (TB) 2010-11-18 Completed [facility] of 00:00:00 [facility] TDAP (ADACEL) 2010-11-18 Completed University [...] HEPATITIS A 2004-03-02 Completed [facility] 00:00:00 [facility] HEPATITIS A 2004-03-02 Completed [facility] of 00:00:00 [facility] HEPATITIS A 2004-03-02 Completed [facility] of 00:00:00 [facility] HEPATITIS A 2004-03-02 Completed [facility] of 00:00:00 [facility] HEPATITIS A 2004-03-02 Completed [facility] 00:00:00 [facility] HEPATITIS A 2004-03-02 Completed [facility] 00:00:00 [facility] HEPATITIS A 2004-03-02 Completed [facility] 00:00:00 [facility] HEPATITIS A 2004-03-02 Completed [facility] of 00:00:00 [facility] HEPATITIS A 2004-03-02 Completed [facility] of 00:00:00 [facility] HEPATITIS A 2004-03-02 Completed [facility] of 00:00:00 [facility] HEPATITIS A 2004-03-02 Completed [facility] 00:00:00 [facility] HEPATITIS A 2004-03-02 Completed [facility] 00:00:00 [facility] HEPATITIS A 2004-03-02 Completed [facility] 00:00:00 [facility] HEPATITIS A 2004-03-02 Completed [facility] 00:00:00 [facility] HEPATITIS A 2004-03-02 Completed [facility] 00:00:00 [facility] HEPATITIS A 2004-03-02 Completed [facility] 00:00:00 [facility] HEPATITIS A 2004-03-02 Completed [facility] 00:00:00 [facility] HEPATITIS A 2004-03-02 Completed [facility] 00:00:00 [facility] HEPATITIS A 2004-03-02 Completed [facility] of 00:00:00 [facility] HEPATITIS A 2004-03-02 Completed [facility] of 00:00:00 [facility] HEPATITIS A 2004-03-02 Completed [facility] of 00:00:00 [facility] HEPATITIS A 2004-03-02 Completed [facility] of 00:00:00 [facility] HEPATITIS A 2004-03-02 Completed [facility] of 00:00:00 [facility] HEPATITIS A 2003-08-01 Completed [facility] 00:00:00 [facility] HEPATITIS A 2003-08-01 Completed [facility] 00:00:00 [facility] HEPATITIS A 2003-08-01 Completed [facility] of 00:00:00 [facility] HEPATITIS A 2003-08-01 Completed [facility] 00:00:00 [facility] HEPATITIS A 2003-08-01 Completed [facility] 00:00:00 [facility] HEPATITIS A 2003-08-01 Completed [facility] 00:00:00 [facility] HEPATITIS A 2003-08-01 Completed [facility] 00:00:00 [facility] HEPATITIS A 2003-08-01 Completed [facility] 00:00:00 [facility] HEPATITIS A 2003-08-01 Completed [facility] 00:00:00 [facility] HEPATITIS A 2003-08-01 Completed [facility] 00:00:00 [facility] HEPATITIS A 2003-08-01 Completed [facility] 00:00:00 [facility] HEPATITIS A 2003-08-01 Completed [facility] 00:00:00 [facility] HEPATITIS A 2003-08-01 Completed [facility] 00:00:00 [facility] HEPATITIS A 2003-08-01 Completed [facility] of 00:00:00 [facility] HEPATITIS A 2003-08-01 Completed [facility] of 00:00:00 [facility] HEPATITIS A 2003-08-01 Completed [facility] 00:00:00 [facility] HEPATITIS A 2003-08-01 Completed [facility] 00:00:00 [facility] HEPATITIS A 2003-08-01 Completed [facility] 00:00:00 [facility] HEPATITIS A 2003-08-01 Completed [facility] 00:00:00 [facility] HEPATITIS A 2003-08-01 Completed University [...] 00:00:00 [facility] PFIZER COVID-19 Unknown Completed [facility] P[facility] COVID-19 Unknown Completed [facility] PFIZ[facility] COVID-19 Unknown Completed [facility] PFIZER COVID-19 Unknown Completed [facility] PFIZER COVID-19 Unknown Com[facility] PFIZER COVID-19 Unknown Com[facility] PFIZER COVID-19 Unknown Completed [facility] PFIZER COVID-19 Unknown Com[facility] PFIZER COVID-19 Unknown Completed [facility] PFIZER COVID-19 Unknown Completed [facility] PFIZER COVID-19 Unknown Completed [facility] PFIZER COVID-19 Unknown Completed [facility] PFIZER COVID-19 Unknown Completed [facility] PFIZER COVID-19 Unknown Com[facility] PFIZER COVID-19 Unknown Completed [facility] COVID-19 Unknown Completed [facility] COVID[facility]19 Unknown Completed [facility] COVID-19 Unknown Completed [facility] COVID[facility]19 Unknown Completed [facility] P[facility] COVID[facility]19 Unknown Completed [facility] PFIZER COVID-19 Unknown Completed [facility] PFIZER COVID-19 Unknown Completed [facility] HEPATITIS A Unknown Completed [facility] HEPATITIS A Unknown Completed [facility] Pneumococcal Unknown Completed [place] o f Polysaccharide, [facility] ical PPSV23 (PNEUMOVAX) Branch PPD (TB) Unknown Completed [facility] PPD (TB) Unknown Completed [facility] TDAP (ADACEL) Unknown Completed [facility] Influenza Virus Unknown Completed Universit y of Vaccine [facility] Hep B, Adol or Pedi Unknown Completed Unive rsity of Dosage [facility] Hep B, Adol or Pedi Unknown Completed Unive rsity of Dosage [facility] Hep B, Adol or Pedi Unknown Completed Unive rsity of Dosage [facility] Pneumococcal Unknown Completed [place] o f Polysaccharide, [facility] ical PPSV23 (PNEUMOVAX) Branch Influenza Virus Unknown Completed Universit y of Vaccine [facility] PPD (TB) Unknown Completed [facility] Influenza Virus Unknown Completed Universit y of Vaccine (3+ yrs) [facility] dical Branch Pneumococcal 13 Unknown Completed Universit y of Conjugate, PCV13 [facility] dical (Prevnar 13) Branch Influenza Virus Unknown Completed Universit y of Vaccine [facility] SARS-COV-2 COVID-19 Unknown Completed Unive rsity of PFIZER VACCINE [facility] Branch SARS-COV-2 COVID-19 Unknown Completed Unive rsity of PFIZER VACCINE [facility] SARS-COV-2 COVID-19 Unknown Completed Unive rsity of DIMITRIS-SUCROSE [facility] VACCINE 12 YRS+, Branch BIVALENT 0.3ML, IM, (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) Influenza Virus Unknown Completed [facility] Vaccine,[facility] [place] [facility] Free Branch 65+ (FLUAD) HEPATITIS A Unknown Completed [facility] HEPATITIS A Unknown Completed [facility] Pneumococcal Unknown Completed University o f Polysaccharide, [place] [facility] PPSV23 (PNEUMOVAX) Branch PPD (TB) Unknown Completed [facility] PPD (TB) Unknown Completed [facility] TDAP (ADACEL) Unknown Completed [facility] Influenza Virus Unknown Completed Universit y of Vaccine [facility] Hep B, Adol or Pedi Unknown Completed Unive rsity of Dosage [facility] Hep B, Adol or Pedi Unknown Completed Unive rsity of Dosage [facility] Hep B, Adol or Pedi Unknown Completed Unive rsity of Dosage [facility] Pneumococcal Unknown Completed University o f Polysaccharide, [place] [facility] PPSV23 (PNEUMOVAX) Branch Influenza Virus Unknown Completed Universit y of Vaccine [facility] PPD (TB) Unknown Completed [facility] Influenza Virus Unknown Completed Universit y of Vaccine (3+ yrs) [facility] dical Branch Pneumococcal 13 Unknown Completed Universit y of Conjugate, PCV13 [facility] dical (Prevnar 13) Branch Influenza Virus Unknown Completed Universit y of Vaccine [facility] SARS-COV-2 COVID-19 Unknown Completed Unive rsity of PFIZER VACCINE [facility] Branch SARS-COV-2 COVID-19 Unknown Completed Unive rsity of PFIZER VACCINE [facility] Branch SARS-COV-2 COVID-19 Unknown Completed Unive rsity of [facility] [place] [facility] VACCINE 12 YRS+, Branch BIVALENT 0.3ML, IM, (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) Influenza Virus Unknown Completed [facility] Vaccine,[facility] [place] [facility] Branch 65+ (FLUAD) HEPATITIS A Unknown Completed [facility] HEPATITIS A Unknown Completed [facility] Pneumococcal Unknown Completed University o f Polysaccharide, [place] [facility] PPSV23 (PNEUMOVAX) Branch PPD (TB) Unknown Completed [facility] PPD (TB) Unknown Completed [facility] TDAP (ADACEL) Unknown Completed [facility] Influenza Virus Unknown Completed Universit y of Vaccine [facility] Hep B, Adol or Pedi Unknown Completed Unive rsity of Dosage [facility] Hep B, Adol or Pedi Unknown Completed Unive rsity of Dosage [facility] Hep B, Adol or Pedi Unknown Completed Unive rsity of Dosage [facility] Pneumococcal Unknown Completed University o f Polysaccharide, [place] [facility] PPSV23 (PNEUMOVAX) Branch Influenza Virus Unknown Completed Universit y of Vaccine [facility] PPD (TB) Unknown Completed [facility] Influenza Virus Unknown Completed Universit y of Vaccine (3+ yrs) [facility] dical Branch Pneumococcal 13 Unknown Completed Universit y of Conjugate, PCV13 [facility] dical (Prevnar 13) Branch Influenza Virus Unknown Completed Universit y of Vaccine [facility] SARS-COV-2 COVID-19 Unknown Completed Unive rsity of PFIZER VACCINE [facility] Branch SARS-COV-2 COVID-19 Unknown Completed Unive rsity of PFIZER VACCINE [facility] SARS-COV-2 COVID-19 Unknown Completed Unive rsity of [facility] [place] [facility] VACCINE 12 YRS+, Branch BIVALENT 0.3ML, IM, (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) Influenza Virus Unknown Completed Universit y of Vaccine,quad [place] [facility],preserve Free Branch 65+ (FLUAD) HEPATITIS A Unknown Completed [facility] HEPATITIS A Unknown Completed [facility] Pneumococcal Unknown Completed University o f Polysaccharide, [place] [facility] PPSV23 (PNEUMOVAX) Branch PPD (TB) Unknown Completed [facility] PPD (TB) Unknown Completed [facility] TDAP (ADACEL) Unknown Completed [facility] Influenza Virus Unknown Completed Universit y of Vaccine [facility] Hep B, Adol or Pedi Unknown Completed Unive rsity of Dosage [facility] Hep B, Adol or Pedi Unknown Completed Unive rsity of Dosage [facility] Hep B, Adol or Pedi Unknown Completed Unive rsity of Dosage [facility] Pneumococcal Unknown Completed University o f Polysaccharide, [place] [facility] PPSV23 (PNEUMOVAX) Branch Influenza Virus Unknown Completed Universit y of Vaccine [facility] PPD (TB) Unknown Completed [facility] Influenza Virus Unknown Completed Universit y of Vaccine (3+ yrs) [facility] dical Branch Pneumococcal 13 Unknown Completed Universit y of Conjugate, PCV13 [facility] dical (Prevnar 13) Branch Influenza Virus Unknown Completed Universit y of Vaccine [facility] SARS-COV-2 COVID-19 Unknown Completed Unive rsity of PFIZER VACCINE [facility] Branch SARS-COV-2 COVID-19 Unknown Completed Unive rsity of PFIZER VACCINE [facility] SARS-COV-2 COVID-19 Unknown Completed Unive rsity of [facility] [place] [facility] VACCINE 12 YRS+, Branch BIVALENT 0.3ML, IM, (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) Influenza Virus Unknown Completed [facility] Vaccine,[facility] [place] [facility] Free Branch 65+ (FLUAD) HEPATITIS A Unknown Completed [facility] HEPATITIS A Unknown Completed [facility] Pneumococcal Unknown Completed University o f Polysaccharide, [place] [facility] PPSV23 (PNEUMOVAX) Branch PPD (TB) Unknown Completed [facility] PPD (TB) Unknown Completed [facility] TDAP (ADACEL) Unknown Completed [facility] Influenza Virus Unknown Completed Universit y of Vaccine [facility] Hep B, Adol or Pedi Unknown Completed Unive rsity of Dosage [facility] Hep B, Adol or Pedi Unknown Completed Unive rsity of Dosage [facility] Hep B, Adol or Pedi Unknown Completed Unive rsity of Dosage [facility] Pneumococcal Unknown Completed University o f Polysaccharide, [place] [facility] PPSV23 (PNEUMOVAX) Branch Influenza Virus Unknown Completed Universit y of Vaccine [facility] PPD (TB) Unknown Completed [facility] Influenza Virus Unknown Completed Universit y of Vaccine (3+ yrs) [facility] dical Branch Pneumococcal 13 Unknown Completed Universit y of Conjugate, PCV13 [facility] dicor (Prevnar 13) Branch Influenza Virus Unknown Completed Universit y of Vaccine [facility] SARS-COV-2 COVID-19 Unknown Completed Unive rsity of PFIZER VACCINE [facility] SARS-COV-2 COVID-19 Unknown Completed Unive rsity of PFIZER VACCINE [facility] SARS-COV-2 COVID-19 Unknown Completed Unive rsity of [facility] [place] [facility] VACCINE 12 YRS+, Branch BIVALENT 0.3ML, IM, (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) Influenza Virus Unknown Completed [facility] of Vaccine,[facility] [place] [facility] Free Branch 65+ (FLUAD) HEPATITIS A Unknown Completed [facility] HEPATITIS A Unknown Completed [facility] Pneumococcal Unknown Completed University o f Polysaccharide, [place] [facility] PPSV23 (PNEUMOVAX) Branch PPD (TB) Unknown Completed [facility] PPD (TB) Unknown Completed [facility] TDAP (ADACEL) Unknown Completed University of VACCINE [facility] Influenza Virus Unknown Completed Universit y of Vaccine [facility] Hep B, Adol or Pedi Unknown Completed Unive rsity of Dosage [facility] Hep B, Adol or Pedi Unknown Completed Unive rsity of Dosage [facility] Hep B, Adol or Pedi Unknown Completed Unive rsity of Dosage [facility] Pneumococcal Unknown Completed [facility] Polysaccharide, [place] [facility] PPSV23 (PNEUMOVAX) Branch Influenza Virus Unknown Completed Universit y of Vaccine [facility] PPD (TB) Unknown Completed [facility] Influenza Virus Unknown Completed Universit y of Vaccine (3+ yrs) [facility] dical Branch Pneumococcal 13 Unknown Completed Universit y of Conjugate, PCV13 [facility] dicor (Prevnar 13) Branch Influenza Virus Unknown Completed Universit y of Vaccine [facility] SARS-COV-2 COVID-19 Unknown Completed Unive rsity of PFIZER VACCINE [facility] SARS-COV-2 COVID-19 Unknown Completed Unive rsity of PFIZER VACCINE [facility] SARS-COV-2 COVID-19 Unknown Completed Unive rsity of [facility] [place] [facility] VACCINE 12 YRS+, Branch BIVALENT 0.3ML, IM, (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) Influenza Virus Unknown Completed [facility] of Vaccine,quad [place] [facility],preserve Free Branch 65+ (FLUAD) PFIZER COVID-19 Unknown Completed [facility] PFIZER COVID-19 Unknown Completed [facility] Vital Signs Vital Name Observation Time Observation Value Comments Source Systolic blood 2023-04-02 03:00:00 186 mm[Hg] Univer sity of pressure [facility] Diastolic blood 2023-04-02 03:00:00 94 mm[Hg] Unive rsity of pressure [facility] Body temperature 2023-04-02 03:00:00 37.17 Amina [facility] Respiratory rate 2023-04-02 03:00:00 16 /min [facility] Oxygen saturation in 2023-04-02 03:00:00 93 /min [facility] Arterial blood by [facility] Pulse oximetry Branch Heart rate 2023-04-02 00:00:00 58 /min [facility] Body height 2023-04-01 20:15:00 162.6 cm [facility] Body weight 2023-04-01 20:15:00 79.379 kg [facility] BMI 2023-04-01 20:15:00 30.04 kg/m2 [facility] [place] [facility] Systolic blood 2023-03-29 21:20:00 149 mm[Hg] Univer sity of pressure [facility] [place] [facility] Diastolic blood 2023-03-29 21:20:00 97 mm[Hg] Unive rsity of pressure [facility] [place] [facility] Heart rate 2023-03-29 21:20:00 75 /min [facility] Body temperature 2023-03-29 21:20:00 36.56 Amina [facility] ers[facility] [place] [facility] Respiratory rate 2023-03-29 21:20:00 18 /min Univ ersity [facility] [place] [facility] Oxygen saturation in 2023-03-29 21:20:00 94 /min University of Arterial blood by [employer] Pulse oximetry Branch Body height 2023-03-29 14:20:00 162.6 cm [facility] Body weight 2023-03-29 14:20:00 79.379 kg [facility] BMI 2023-03-29 14:20:00 30.04 kg/m2 [facility] [place] [facility] Systolic blood 2023-03-17 21:51:00 171 mm[Hg] Univer sity of pressure [facility] [place] [facility] Diastolic blood 2023-03-17 21:51:00 86 mm[Hg] Unive rsity of pressure [facility] [place] [facility] Heart rate 2023-03-17 21:51:00 55 /min [facility] Body temperature 2023-03-17 21:51:00 36.17 Amina [facility] Respiratory rate 2023-03-17 21:51:00 18 /min Univ ersity of [place] [facility] Oxygen saturation in 2023-03-17 21:51:00 90 /min University of Arterial blood by [employer] Pulse oximetry Branch Body height 2023-03-17 04:16:00 162.6 cm [facility] Body weight 2023-03-17 04:16:00 77.4 kg [facility] BMI 2023-03-17 04:16:00 29.29 kg/m2 [facility] [place] [facility] Systolic blood 2023-01-27 23:00:00 179 mm[Hg] Univer sity of pressure [facility] [place] [facility] Diastolic blood 2023-01-27 23:00:00 101 mm[Hg] Unive rsity of pressure [facility] Heart rate 2023-01-27 23:00:00 58 /min [facility] [place] [facility] Respiratory rate 2023-01-27 23:00:00 12 /min Univ ersity of [place] [facility] Oxygen saturation in 2023-01-27 23:00:00 99 /min University of Arterial blood by [place] [employer] [facility] Pulse oximetry Branch Body temperature 2023-01-27 15:46:00 37.28 Amina [facility] [place] [facility] Body weight 2023-01-27 15:46:00 79.379 kg [facility] [place] [facility] BMI 2023-01-27 15:46:00 30.04 kg/m2 [facility] [place] [facility] Systolic blood 2022-05-10 22:00:00 159 mm[Hg] Univer sity of pressure [facility] [place] [facility] Diastolic blood 2022-05-10 22:00:00 87 mm[Hg] Unive rsity of pressure [facility] [place] [facility] Heart rate 2022-05-10 22:00:00 56 /min [facility] [place] [facility] Body temperature 2022-05-10 22:00:00 36.61 Amina [facility] Respiratory rate 2022-05-10 22:00:00 17 /min Univ ersity [facility] [place] [facility] Oxygen saturation in 2022-05-10 22:00:00 98 /min University of Arterial blood by [place] [employer] [facility] Pulse oximetry Branch Body weight 2022-05-10 16:29:00 78.926 kg [facility] [place] [facility] BMI 2022-05-10 16:29:00 29.87 kg/m2 [facility] [place] [facility] Systolic blood 2022-05-08 22:30:00 168 mm[Hg] Univer sity of pressure [facility] Diastolic blood 2022-05-08 22:30:00 85 mm[Hg] Unive rsity of pressure [facility] Heart rate 2022-05-08 22:30:00 68 /min [facility] [place] [facility] Oxygen saturation in 2022-05-08 22:30:00 100 /min University of Arterial blood by [facility] Pulse oximetry Branch Body temperature 2022-05-08 22:22:00 35.89 Amina [facility] [place] [facility] Respiratory rate 2022-05-08 22:22:00 14 /min Univ ers[facility] [place] [facility] Body weight 2022-05-08 22:22:00 78.926 kg [facility] [place] [facility] BMI 2022-05-08 22:22:00 29.87 kg/m2 [facility] [place] [facility] Systolic blood 2022-05-07 00:00:00 149 mm[Hg] Univer sity of pressure [facility] [place] [facility] Diastolic blood 2022-05-07 00:00:00 132 mm[Hg] Unive rsity of pressure [facility] [place] [facility] Heart rate 2022-05-07 00:00:00 59 /min [facility] [place] [facility] Respiratory rate 2022-05-07 00:00:00 14 /min Univ ers[facility] [place] [facility] Oxygen saturation in 2022-05-07 00:00:00 99 /min University of Arterial blood by [facility] Pulse oximetry Branch Body temperature 2022-05-06 20:12:00 36.5 Amina [facility] [place] [facility] Body height 2022-05-06 20:12:00 162.6 cm [facility] [place] [facility] Body weight 2022-05-06 20:12:00 78.926 kg [facility] [place] [facility] BMI 2022-05-06 20:12:00 29.87 kg/m2 [facility] [place] [facility] Systolic blood 2022-04-22 19:50:00 156 mm[Hg] Univer sity of pressure [facility] [place] [facility] Diastolic blood 2022-04-22 19:50:00 89 mm[Hg] Unive rsity of pressure [facility] [place] [facility] Heart rate 2022-04-22 19:50:00 69 /min [facility] [place] [facility] Body temperature 2022-04-22 19:50:00 36.67 Amina [facility] [place] [facility] Respiratory rate 2022-04-22 19:50:00 17 /min Univ ers[facility] [place] [facility] Body height 2022-04-22 19:50:00 162.6 cm [facility] [place] [facility] Body weight 2022-04-22 19:50:00 80.74 kg [facility] BMI 2022-04-22 19:50:00 30.55 kg/m2 [facility] [place] [facility] Oxygen saturation in 2022-04-22 19:50:00 96 /min University of Arterial blood by [facility] Pulse oximetry Branch Systolic blood 2022-03-05 15:23:00 167 mm[Hg] Univer sity of pressure [facility] [place] [facility] Diastolic blood 2022-03-05 15:23:00 105 mm[Hg] Unive rsity of pressure [facility] [place] [facility] Heart rate 2022-03-05 15:23:00 49 /min [facility] [place] [facility] Body temperature 2022-03-05 15:18:00 36.67 Amina [facility] [place] [facility] Respiratory rate 2022-03-05 15:18:00 18 /min [facility] [place] [facility] Body height 2022-03-05 15:18:00 162.6 cm [facility] [place] [facility] Body weight 2022-03-05 15:18:00 74.707 kg [facility] [place] [facility] BMI 2022-03-05 15:18:00 28.27 kg/m2 [facility] [place] [facility] Systolic blood 2022-02-16 21:41:00 169 mm[Hg] Univer sity of pressure [facility] [place] [facility] Diastolic blood 2022-02-16 21:41:00 86 mm[Hg] Unive rsity of pressure [facility] [place] [facility] Heart rate 2022-02-16 21:41:00 51 /min [facility] [place] [facility] Body temperature 2022-02-16 21:41:00 36.56 Amina [facility] [place] [facility] Respiratory rate 2022-02-16 21:41:00 17 /min Univ ers[facility] [place] [facility] Oxygen saturation in 2022-02-16 21:41:00 98 /min University of Arterial blood by [facility] Pulse oximetry Branch Body height 2022-02-11 16:02:00 162.6 cm [facility] Body weight 2022-02-11 16:02:00 79.379 kg [facility] BMI 2022-02-11 16:02:00 30.04 kg/m2 [facility] [place] [facility] Systolic blood 2021-11-20 13:47:00 165 mm[Hg] Univer [facility]ity of pressure [place] [facility] Diastolic blood 2021-11-20 13:47:00 83 mm[Hg] Unive rsity of pressure [facility] Heart rate 2021-11-20 13:47:00 58 /min Universi ty of [facility] Body temperature 2021-11-20 13:42:00 36.39 Amina Univ ersity of [facility] Respiratory rate 2021-11-20 13:42:00 16 /min Univ ersity of [facility] Body height 2021-11-20 13:42:00 162.6 cm Universi ty of [facility] Body weight 2021-11-20 13:42:00 84.369 kg Universi ty of [facility] BMI 2021-11-20 13:42:00 31.93 kg/m2 Universi ty [facility] Systolic blood 2021-07-14 15:18:00 142 [...] Univer sity of pressure [facility] Diastolic blood 2022-05-10 22:00:00 87 mm[Hg] Unive rsity of pressure [facility] Heart rate 2022-05-10 22:00:00 56 /min Universi ty of [facility] Body temperature 2022-05-10 22:00:00 36.61 Amina [facility] Respiratory rate 2022-05-10 22:00:00 17 /min [facility] O[facility] in 2022-05-10 22:00:00 98 /min [facility] Arterial blood by [facility] Pulse oximetry Branch Body weight 2022-05-10 16:29:00 78.926 kg Universi ty of [facility] BMI 2022-05-10 16:29:00 29.87 kg/m2 Universi ty [facility] Body height 2022-05-06 20:12:00 162.6 cm Universi ty [facility] Systolic blood 2022-03-05 15:23:00 167 mm[Hg] Univer sity of pressure [facility] Diastolic blood 2022-03-05 15:23:00 105 mm[Hg] Unive rsity of pressure [facility] Heart rate 2022-03-05 15:23:00 49 /min Universi [facility] Body temperature 2022-03-05 15:18:00 36.67 Amina Univ ersity [facility] Respiratory rate 2022-03-05 15:18:00 18 /min [facility] Body height 2022-03-05 15:18:00 162.6 cm Universi ty [facility] Body weight 2022-03-05 15:18:00 [facility]707 [facility] BMI 2022-03-05 15:18:00 28.27 kg/m2 [facility] Oxygen saturation in 2022-02-16 21:41:00 98 /min [facility] Arterial blood by [facility] Pulse oximetry [place] Systolic blood 2020-12-08 15:48:00 125 mm[Hg] [facility] pressure Diastolic blood 2020-12-08 15:48:00 76 mm[Hg] [facility] pressure Heart rate 2020-12-08 15:48:00 64 /min [facility] Body temperature 2020-12-08 15:48:00 36.61 Amina [facility] Respiratory rate 2020-12-08 15:48:00 17 /min [facility] Body height 2020-12-08 15:48:00 162.6 cm [facility] Body weight 2020-12-08 15:48:00 98.884 kg [facility] BMI 2020-12-08 15:48:00 37.42 kg/m2 [facility] Oxygen saturation in 2020-12-08 15:48:00 97 /min [facility] Arterial blood by Pulse oximetry Respitory Rate 2020-08-30 13:00:00 [place] Systolic (mm Hg) 2020-08-30 13:00:00 [place] [place] Diastolic (mm Hg) 2020-08-30 13:00:00 Mem orial [place] Systolic (mm Hg) 2020-08-30 11:00:00 [place] rial [place] Diastolic (mm Hg) 2020-08-30 11:00:00 Mem orial [place] Temperature Oral (F) 2020-08-30 11:00:00 98.4 F [facility] [place] Respitory Rate 2020-08-30 11:00:00 Memori al [place] Respitory Rate 2020-08-30 10:00:00 [facility] [place] Systolic (mm Hg) 2020-08-30 10:00:00 [place] [facility] [place] Diastolic (mm Hg) 2020-08-30 10:00:00 Mem orial [place] Temperature Oral (F) 2020-08-30 00:00:00 96.9 F [facility] Temperature Oral (F) 2020-08-29 11:26:00 97.6 F [facility] Height 2020-08-29 10:30:00 162.56 cm [facility] Weight 2020-08-29 10:30:00 [facility] BMI Calculated 2020-08-29 10:30:00 Memraymond al [place] Procedures Procedure Date / Time Performing Clinician Source Performed LIPASE 2023-04-01 23:53:00 Lorenzo Maravilla [facility] COMP. METABOLIC PANEL 2023-04-01 23:53:00 Lorenzo Maravilla [facility] ([id number]) [facility] CBC WITH DIFF 2023-04-01 23:20:00 Lorenzo Maravilla [facility] URINALYSIS 2023-04-01 23:20:00 Lorenzo Maravilla [facility] XR ABDOMEN ACUTE SERIES 2023-04-01 22:02:39 [facility]ENEFITS 2023-04-01 21:45:25 [facility] [place] [facility] ABDOMEN PELVIS W 2023-03-29 18:27:00 Grey Gabriel [facility] CONTRAST [facility] LIPASE 2023-03-29 14:33:00 Nery [facility] COMP. METABOLIC PANEL 2023-03-29 14:33:00 Nery Radhaghassan [facility] ([id number]) [facility] [place] CBC WITH DIFF 2023-03-29 14:33:00 Nery [facility] URINALYSIS 2023-03-29 14:33:00 Nery [facility] EKG-12 LEAD 2023-03-17 16:14:23 Anatoly Wells [facility] TRANSTHORACIC ECHO (TTE) 2023-03-17 15:10:44 Servando [facility] COMPLETE W/ CONTRAST Medical [facility] URINE DRUG (IMMUNOASSAY) - 2023-03-17 08:25:00 Radha Al [facility] COMPREHENSIVE DRUG SCREEN Medica l Branch URINALYSIS 2023-03-17 08:25:00 Servando [facility] MAGNESIUM 2023-03-17 08:23:00 Servando [facility] FREE T4 2023-03-17 08:23:00 Servando [facility] BASIC METABOLIC PANEL (NA, 2023-03-17 08:23:00 Radha Al [facility] K, CL, CO2, GLUCOSE, BUN, Medica l Branch CREATININE, CA) IRON PANEL 2023-03-17 08:23:00 Servando [facility] CBC WITH DIFF 2023-03-17 08:23:00 Servando [facility] FREE T3 2023-03-17 08:23:00 Servando [facility] TROPONIN I 2023-03-17 04:47:00 Servando [facility] C-REACTIVE PROTEIN 2023-03-17 02:27:00 Servando [facility] TROPONIN I 2023-03-17 02:27:00 Sandra Bautista [facility] THYROID STIMULATING 2023-03-17 02:27:00 Servando, [facility] HORMONE [facility] LIPID PANEL ([id number])(TOTAL 2023-03-17 02:27:00 Radha Al [facility] CHOLESTEROL, [facility] TRIGLYCERIDES, HDL) SERUM DRUG (IMMUNOASSAY) - 2023-03-17 02:27:[address] [facility] COMPREHENSIVE DRUG SCREEN Medica l Branch XR CHEST 2 VW 2023-03-16 23:25:00 Anatoly Wells [facility] TROPONIN I 2023-03-16 20:48:00 Anatoly Wells [facility] COMP. METABOLIC PANEL 2023-03-16 20:48:00 Anatoly Wells [facility] ([id number]) [facility] SEDIMENTATION RATE 2023-03-16 20:48:00 Radha Al [facility] CBC WITH DIFF 2023-03-16 20:48:00 Anatoly eWlls [facility] GLYCOSYLATED HEMOGLOBIN 2023-03-16 20:48:00 [facility] D-DIMER 2023-03-16 20:48:00 Go Russell [facility] N-TERMINAL PRO-BNP 2023-03-16 20:48:00 Anatoly Wells [facility] US LOWER EXTREMITY VEIN 2023-03-16 19:53:22 Go Russell [facility] WITH COMPRESSION LEFT Medical Br anch (ONLY FOR RULE OUT DVT) CONSENT/REFUSAL FOR 2023-03-16 16:49:29 Doctor Unassigned, [facility] DIAGNOSIS AND TREATMENT [place] [facility] CONSENT/REFUSAL FOR 2023-03-16 14:08:10 Doctor Unasseunice, [facility] DIAGNOSIS AND TREATMENT [place] [facility] PROTHROMBIN TIME / INR 2023-01-27 21:09:00 Bill Coles [facility] ACTIVATED PARTIAL THRMPLAS 2023-01-27 21:09:[address] [facility] CT ABDOMEN PELVIS W 2023-01-27 20:54:00 Bill Coles [facility] CONTRAST Medical Branch LIPASE 2023-01-27 18:58:00 Bill Coles [facility] Branch MAGNESIUM 2023-01-27 18:58:00 Bill Coles [facility] TROPONIN I 2023-01-27 18:58:00 Bill Coles [facility] COMP. METABOLIC PANEL 2023-01-27 18:58:00 Bill Coles [facility] ([id number]) [facility] CBC WITH DIFF 2023-01-27 18:58:00 Bill Coles Kier[facility] URINALYSIS 2023-01-27 18:58:00 Bill Coles Kier[facility] COVID-19 (ID NOW RAPID 2023-01-27 16:32:00 Bill Coles [facility] TESTING) Medical Branch URINALYSIS 2022-05-10 19:36:00 Home Matthews [facility] TROPONIN I 2022-05-10 18:34:00 Home Matthews [facility] COMP. METABOLIC PANEL 2022-05-10 18:34:00 Home Matthews [facility] ([id number]) [facility] CBC WITH DIFF 2022-05-10 18:34:00 Home Matthews [facility] XR CHEST 2 VW 2022-05-10 17:24:58 Home Matthews [facility] CONSENT/REFUSAL FOR 2022-05-10 16:26:23 Doctor Unassigned, [facility] DIAGNOSIS AND [place] [facility] CONSENT/REFUSAL FOR 2022-05-10 16:26:09 Doctor Unassigned, [facility] DIAGNOSIS AND [facility] [place] [facility] URINALYSIS 2022-05-08 22:43:00 Theresa Hickman [facility] XR CHEST 2 VW 2022-05-06 22:56:53 Anette Olea [facility] COMP. METABOLIC PANEL 2022-05-06 22:14:00 Anette Olea [facility] ([id number]) Medical Branch CBC WITH DIFF 2022-05-06 22:14:00 Anette Olea [facility] COVID-19 (ID NOW RAPID 2022-05-06 22:14:00 Anette Olea [facility] TESTING) Medical Branch BASIC METABOLIC PANEL (NA, 2022-04-22 21:23:[address] [facility] K, CL, CO2, GLUCOSE, BUN, Medica l Branch CREATININE, CA) CBC WITH DIFF 2022-04-22 21:23:00 Paulette Gray [facility] CONSENT/REFUSAL FOR 2022-04-22 19:45:46 Doctor Unassigned, [facility] DIAGNOSIS AND TREATMENT [place] [facility] SARS-COV-2 COVID-19 2022-03-05 16:09:27 [facility] DIMITRIS-SUCROSE VACCINE [address] [place] [address] YRS+, BIVALENT 0.3ML, IM, (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) FLU 2022-03-05 16:09:27 [facility] VACC(),65+YR,0.5 Medica l Branch ML,IM,ADJUVANTED,QUAD(FLUA D) FLU 2022-03-05 16:09:27 [facility] VACC(),65+YR,0.5 Medica l Branch ML,IM,ADJUVANTED,QUAD(FLUA D) SARS-COV-2 COVID-19 2022-03-05 16:09:27 [facility] DIMITRIS-SUCROSE VACCINE [address] [place] [address] YRS+, BIVALENT 0.3ML, IM, (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) MAGNESIUM 2022-02-15 09:41:00 Sofia Garcia [facility] BASIC METABOLIC PANEL (NA, 2022-02-15 09:41:00 Sofia Garcia [facility] K, CL, CO2, GLUCOSE, BUN, Medica l Branch CREATININE, CA) CBC WITH DIFF 2022-02-15 09:41:00 Sofia Garcia [facility] N-TERMINAL PRO-BNP 2022-02-15 09:41:[address] [facility] CBC WITH DIFF 2022-02-15 09:41:00 Sofia Garcia [facility] BASIC METABOLIC PANEL (NA, 2022-02-15 09:41:00 Sofia Garcia [facility] K, CL, CO2, GLUCOSE, BUN, Medica l Branch CREATININE, CA) MAGNESIUM 2022-02-15 09:41:00 Sofia Garcia [facility] N-TERMINAL PRO-BNP 2022-02-15 09:41:[address] [facility] BASIC METABOLIC PANEL (NA, 2022-02-13 09:40:00 Sofia Garcia [facility] K, CL, CO2, GLUCOSE, BUN, Medica l Branch CREATININE, CA) CBC WITH DIFF 2022-02-13 09:40:00 Radha Sofia [facility] BASIC METABOLIC PANEL (NA, 2022-02-13 09:40:00 Sofia Garcia [facility] K, CL, CO2, GLUCOSE, BUN, Medica l Branch CREATININE, CA) CBC WITH DIFF 2022-02-13 09:40:00 Radha [facility] TROPONIN I 2022-02-11 23:41:00 Radha [facility] N-TERMINAL PRO-BNP 2022-02-11 23:41:[address] [facility] TROPONIN I 2022-02-11 23:41:00 Sofia Garcia [facility] N-TERMINAL PRO-BNP 2022-02-11 23:41:[address] [facility] HB ECG ROUTINE & RHYTHM 2022-02-11 22:15:36 [facility] (TTE) 2022-02-11 21:26:50 [facility] (TTE) 2022-02-11 21:26:50 [facility] 2022-02-11 07:45:43 Reilly Means [facility] CT ABDOMEN PELVIS W 2022-02-11 07:45:43 Miguelangel Reilly [facility] RAPID INFLUENZA A/B 2022-02-11 06:54:[address] [facility] RAPID INFLUENZA A/B 2022-02-11 06:54:[address] [facility] URINALYSIS 2022-02-11 06:45:00 Reilly Means [facility] [...] 04:58:00 Reilly Means [facility] ([id number]) Medical Branch CBC WITH DIFF 2022-02-11 04:58:00 Reilly Means [facility] PROTHROMBIN TIME / INR 2022-02-11 04:58:00 Reilly Means [facility] ACTIVATED PARTIAL THRMPLAS 2022-02-11 04:58:00 Reilly Means [facility] N-TERMINAL PRO-BNP 2022-02-11 04:58:00 Reilly Means [facility] [...] 04:58:00 Reilly Means [facility] ([id number]) [facility] TROPONIN I 2022-02-11 04:58:00 Reilly Means [facility] N-TERMINAL PRO-BNP 2022-02-11 04:58:00 Reilly Means [facility] BLOOD CULTURE SCREEN 2022-02-11 04:58:00 Reilly Means [facility] LACTIC ACID WHOLE BLOOD 2022-02-11 04:58:00 Reilly Means [facility] LAB ONLY COVID 2022-02-11 04:58:00 eRilly Means [facility] XR CHEST 1 VW 2022-02-11 04:27:42 Miguelangel Reilly [facility] XR CHEST 1 VW 2022-02-11 04:27:42 Reilly Means [facility] HOSPITAL ADMISSION 2022-02-10 05:01:00 Doctor Unassigned, [facility] [place] [facility] [place] HOSPITAL ADMISSION 2022-02-10 05:01:00 Doctor Unassigned, [facility] Name Medical Branch ECG 12-LEAD 2021-07-14 15:14:00 Elan Lira [facility] [id number] 2021-06-17 00:00:00 RASSA [facility] GASTROINTESTINAL PANEL 2020-12-08 22:21:00 Eliseo Arce [facility] XR ABDOMEN 1 VW 2020-12-08 18:06:32 Eliseo Arce spital OR [place] < 1 HOUR 2020-09-05 22:39:00 Eliseo Arce spital SURGICAL PATHOLOGY REQUEST 2020-09-05 21:54:00 Eliseo Arce [facility] XR CHEST 1 VW PORTABLE 2020-09-05 19:55:00 Eliseo Arce [facility] DISCHARGE PATIENT 2020-09-05 17:27:55 Lucas Harris [facility] UT AN ELECTIVE 2020-09-05 16:47:[address] [facility] ENDOTRACHEAL AIRWAY EGD, INTRAOPERATIVE 2020-09-05 16:27:00 [facility] 2020-09-05 15:04:00 Sarai Maharaj [facility] TIME (PTT) M. PROTHROMBIN TIME WITH INR 2020-09-05 15:04:00 Mindy Maharaj [facility] MChelsie Plan of Care Planned Activity Planned Date Details Comments Source Future Scheduled 2023-04-19 Screening for [facility] Test 08:39:03 malignant neoplasm of colon (procedure) [code = 208979068] Future Scheduled 2023-04-19 Screening for [facility] Test 08:39:03 malignant neoplasm of colon (procedure) [code = 451093933] Future Scheduled 2023-04-19 Screening for [facility] Test 08:39:03 malignant neoplasm of colon (procedure) [code = 180872719] Future Scheduled 2023-04-19 SHINGLES VACCINES (1 Met [facility] Test 08:39:03 of 2) [code = SHINGLES VACCINES (1 of 2)] Future Scheduled 2023-04-19 BREAST CANCER [facility] Test 08:39:03 SCREENING [code = BREAST CANCER SCREENING] Future Scheduled 2023-04-19 Screening for [facility] Test 08:39:03 malignant neoplasm of colon (procedure) [code = 814151892] Future Scheduled 2023-04-19 Screening for [facility] Test 08:39:03 malignant neoplasm of colon (procedure) [code = 200418169] Future Scheduled 2023-04-19 HEPATITIS B VACCINES Met [facility] Test 08:39:03 (1 of 3 - Risk 3-dose series) [code = HEPATITIS B VACCINES (1 of 3 - Risk 3-dose series)] Future Scheduled 2023-04-19 [address] [facility] Test 08:39:03 VACCINE (4 - PPSV23 or PCV20) [code = 65+ PNEUMOCOCCAL VACCINE (4 - PPSV23 or PCV20)] Future Scheduled 2023-04-19 COVID-19 VACCINE (3 - Me [facility] Test 08:39:03 ) [code = COVID-19 VACCINE ()] Future Scheduled 2023-04-19 INFLUENZA VACCINE (#1) [facility] Test 08:39:03 [code = INFLUENZA VACCINE (#1)] Future Scheduled 2023-03-17 Screening for [facility] Test 01:30:37 malignant neoplasm of colon (procedure) [code = 914397022] Future Scheduled 2023-03-17 Screening for [facility] Test 01:30:37 malignant neoplasm of colon (procedure) [code = 317733135] Future Scheduled 2023-03-17 Screening for [facility] Test 01:30:37 malignant neoplasm of colon (procedure) [code = 947252762] Future Scheduled 2023-03-17 SHINGLES VACCINES (1 Met [facility] Test 01:30:37 of 2) [code = SHINGLES VACCINES (1 of 2)] Future Scheduled 2023-03-17 BREAST CANCER [facility] Test 01:30:37 SCREENING [code = BREAST CANCER SCREENING] Future Scheduled 2023-03-17 Screening for [facility] Test 01:30:37 malignant neoplasm of colon (procedure) [code = 013555389] Future Scheduled 2023-03-17 Screening for [facility] Test 01:30:37 malignant neoplasm of colon (procedure) [code = 365574709] Future Scheduled 2023-03-17 HEPATITIS B VACCINES Met [facility] Test 01:30:37 (1 of 3 - Risk 3-dose series) [code = HEPATITIS B VACCINES (1 of 3 - Risk 3-dose series)] Future Scheduled 2023-03-17 65+ [facility] 01:30:37 VACCINE (4 - PPSV23 or PCV20) [code = 65+ PNEUMOCOCCAL VACCINE (4 - PPSV23 or PCV20)] Future Scheduled 2023-03-17 COVID-19 VACCINE (3 - [facility] Test 01:30:37 ) [code = COVID-19 VACCINE ()] Future Scheduled 2023-03-17 INFLUENZA VACCINE (#1) [facility] Test 01:30:37 [code = INFLUENZA VACCINE (#1)] Future Scheduled 2023-03-17 Screening for [facility] Test 01:30:37 malignant neoplasm of colon (procedure) [code = 221821334] Future Scheduled 2023-03-17 Screening for [facility] Test 01:30:37 malignant neoplasm of colon (procedure) [code = 434750561] Future Scheduled 2023-03-17 Screening for [facility] Test 01:30:37 malignant neoplasm of colon (procedure) [code = 329001503] Future Scheduled 2023-03-17 SHINGLES VACCINES (1 Met [facility] Test 01:30:37 of 2) [code = SHINGLES VACCINES (1 of 2)] Future Scheduled 2023-03-17 BREAST CANCER [facility] Test 01:30:37 SCREENING [code = BREAST CANCER SCREENING] Future Scheduled 2023-03-17 Screening for [facility] Test 01:30:37 malignant neoplasm of colon (procedure) [code = 524528849] Future Scheduled 2023-03-17 Screening for [facility] Test 01:30:37 malignant neoplasm of colon (procedure) [code = 873207402] Future Scheduled 2023-03-17 HEPATITIS B VACCINES Met [facility] Test 01:30:37 (1 of 3 - Risk 3-dose series) [code = HEPATITIS B VACCINES (1 of 3 - Risk 3-dose series)] Future Scheduled 2023-03-17 [address]+ [address]NEUM[address] [facility] Test 01:30:37 VACCINE (4 - PPSV23 or PCV20) [code = 65+ PNEUMOCOCCAL VACCINE (4 - PPSV23 or PCV20)] Future Scheduled 2023-03-17 COVID-19 VACCINE (3 - [facility] Test 01:30:37 season) [code = COVID-19 VACCINE (3 - season)] Future Scheduled 2023-03-17 INFLUENZA VACCINE (#1) [facility] Test 01:30:37 [code = INFLUENZA VACCINE (#1)] Future Scheduled 2023-03-10 Screening for [facility] Test 01:58:53 malignant neoplasm of colon (procedure) [code = 488103657] Future Scheduled 2023-03-10 Screening for [facility] Test 01:58:53 malignant neoplasm of colon (procedure) [code = 615117960] Future Scheduled 2023-03-10 Screening for [facility] Test 01:58:53 malignant neoplasm of colon (procedure) [code = 142698113] Future Scheduled 2023-03-10 SHINGLES VACCINES (1 Met [facility] Test 01:58:53 of 2) [code = SHINGLES VACCINES (1 of 2)] Future Scheduled 2023-03-10 BREAST CANCER [facility] Test 01:58:53 SCREENING [code = BREAST CANCER SCREENING] Future Scheduled 2023-03-10 Screening for [facility] Test 01:58:53 malignant neoplasm of colon (procedure) [code = 339030239] Future Scheduled 2023-03-10 Screening for [facility] Test 01:58:53 malignant neoplasm of colon (procedure) [code = 090851037] Future Scheduled 2023-03-10 HEPATITIS B VACCINES Met [facility] Test 01:58:53 (1 of 3 - Risk 3-dose series) [code = HEPATITIS B VACCINES (1 of 3 - Risk 3-dose series)] Future Scheduled 2023-03-10 RSV VACCINES > 60 YR Met [facility] Test 01:58:53 (1 - 1-dose 60+ series) [code = RSV VACCINES > 60 YR (1 - 1-dose 60+ series)] Future Scheduled 2023-03-10 65+ [address]UM[address] [facility] Test 01:58:53 VACCINE (4 - PPSV23 or PCV20) [code = 65+ PNEUMOCOCCAL VACCINE (4 - PPSV23 or PCV20)] Future Scheduled 2023-03-10 COVID-19 VACCINE (3 - [facility] Test 01:58:53 season) [code = COVID-19 VACCINE (3 - season)] Future Scheduled 2023-03-10 INFLUENZA VACCINE (#1) [facility] Test 01:58:53 [code = INFLUENZA VACCINE (#1)] Future Scheduled 2023-03-03 Screening for [facility] Test 11:31:14 malignant neoplasm of colon (procedure) [code = 043469483] Future Scheduled 2023-03-03 Screening for [facility] Test 11:31:14 malignant neoplasm of colon (procedure) [code = 603074988] Future Scheduled 2023-03-03 Screening for [facility] Test 11:31:14 malignant neoplasm of colon (procedure) [code = 468065241] Future Scheduled 2023-03-03 SHINGLES VACCINES (1 Met [facility] Test 11:31:14 of 2) [code = SHINGLES VACCINES (1 of 2)] Future Scheduled 2023-03-03 BREAST CANCER [facility] Test 11:31:14 SCREENING [code = BREAST CANCER SCREENING] Future Scheduled 2023-03-03 Screening for [facility] Test 11:31:14 malignant neoplasm of colon (procedure) [code = 395964113] Future Scheduled 2023-03-03 Screening for [facility] Test 11:31:14 malignant neoplasm of colon (procedure) [code = 676026100] Future Scheduled 2023-03-03 HEPATITIS B VACCINES Met [facility] Test 11:31:14 (1 of 3 - Risk 3-dose series) [code = HEPATITIS B VACCINES (1 of 3 - Risk 3-dose series)] Future Scheduled 2023-03-03 [address]+ [address] [facility] Test 11:31:14 VACCINE (4 - PPSV23 or PCV20) [code = 65+ PNEUMOCOCCAL VACCINE (4 - PPSV23 or PCV20)] Future Scheduled 2023-03-03 COVID-19 VACCINE (3 - [facility] Test 11:31:14 season) [code = COVID-19 VACCINE (3 - season)] Future Scheduled 2023-03-03 INFLUENZA VACCINE (#1) [facility] Test 11:31:14 [code = INFLUENZA VACCINE (#1)] Future Scheduled 2023-02-15 Screening for [facility] Test 13:19:29 malignant neoplasm of colon (procedure) [code = 067245660] Future Scheduled 2023-02-15 Screening for [facility] Test 13:19:29 malignant neoplasm of colon (procedure) [code = 313818320] Future Scheduled 2023-02-15 Screening for [facility] Test 13:19:29 malignant neoplasm of colon (procedure) [code = 563705956] Future Scheduled 2023-02-15 SHINGLES VACCINES (1 Met [facility] Test 13:19:29 of 2) [code = SHINGLES VACCINES (1 of 2)] Future Scheduled 2023-02-15 BREAST CANCER [facility] Test 13:19:29 SCREENING [code = BREAST CANCER SCREENING] Future Scheduled 2023-02-15 Screening for [facility] Test 13:19:29 malignant neoplasm of colon (procedure) [code = 145068555] Future Scheduled 2023-02-15 Screening for [facility] Test 13:19:29 malignant neoplasm of colon (procedure) [code = 425702004] Future Scheduled 2023-02-15 HEPATITIS B VACCINES Met [facility] Test 13:19:29 (1 of 3 - Risk 3-dose series) [code = HEPATITIS B VACCINES (1 of 3 - Risk 3-dose series)] Future Scheduled 2023-02-15 COVID-19 VACCINE (3 - Me [facility] Test 13:19:29 Pfizer series) [code = COVID-19 VACCINE (3 - Pfizer series)] Future Scheduled 2023-02-15 [address]+ [address] [facility] Test 13:19:29 VACCINE (4 - PPSV23 or PCV20) [code = 65+ PNEUMOCOCCAL VACCINE (4 - PPSV23 or PCV20)] Future Scheduled 2023-02-15 INFLUENZA VACCINE (#1) [facility] Test 13:19:29 [code = INFLUENZA VACCINE (#1)] Future Scheduled 2023-02-15 Screening for [facility] Test 13:19:29 malignant neoplasm of colon (procedure) [code = 719456821] Future Scheduled 2023-02-15 Screening for [facility] Test 13:19:29 malignant neoplasm of colon (procedure) [code = 767100833] Future Scheduled 2023-02-15 Screening for [facility] Test 13:19:29 malignant neoplasm of colon (procedure) [code = 774676189] Future Scheduled 2023-02-15 SHINGLES VACCINES (1 Met [facility] Test 13:19:29 of 2) [code = SHINGLES VACCINES (1 of 2)] Future Scheduled 2023-02-15 BREAST CANCER [facility] Test 13:19:29 SCREENING [code = BREAST CANCER SCREENING] Future Scheduled 2023-02-15 Screening for [facility] Test 13:19:29 malignant neoplasm of colon (procedure) [code = 429379612] Future Scheduled 2023-02-15 Screening for [facility] Test 13:19:29 malignant neoplasm of colon (procedure) [code = 118496285] Future Scheduled 2023-02-15 HEPATITIS B VACCINES Met [facility] Test 13:19:29 (1 of 3 - Risk 3-dose series) [code = HEPATITIS B VACCINES (1 of 3 - Risk 3-dose series)] Future Scheduled 2023-02-15 COVID-19 VACCINE (3 - Me [facility] Test 13:19:29 Pfizer series) [code = COVID-19 VACCINE (3 - Pfizer series)] Future Scheduled 2023-02-15 [address] [facility] Test 13:19:29 VACCINE (4 - PPSV23 or PCV20) [code = 65+ PNEUMOCOCCAL VACCINE (4 - PPSV23 or PCV20)] Future Scheduled 2023-02-15 INFLUENZA VACCINE (#1) [facility] Test 13:19:29 [code = INFLUENZA VACCINE (#1)] Future Scheduled 2023-02-15 Screening for [facility] Test 13:19:29 malignant neoplasm of colon (procedure) [code = 090260948] Future Scheduled 2023-02-15 Screening for [facility] Test 13:19:29 malignant neoplasm of colon (procedure) [code = 128935553] Future Scheduled 2023-02-15 Screening for [facility] Test 13:19:29 malignant neoplasm of colon (procedure) [code = [id number]] Future Scheduled 2023-02-15 SHINGLES VACCINES (1 Met [facility] Test 13:19:29 of 2) [code = SHINGLES VACCINES (1 of 2)] Future Scheduled 2023-02-15 BREAST CANCER [facility] Test 13:19:29 SCREENING [code = BREAST CANCER SCREENING] Future Scheduled 2023-02-15 Screening for [facility] Test 13:19:29 malignant neoplasm of colon (procedure) [code = [id number]] Future Scheduled 2023-02-15 Screening for [facility] Test 13:19:29 malignant neoplasm of colon (procedure) [code = 258452255] Future Scheduled 2023-02-15 HEPATITIS B VACCINES Met [facility] Test 13:19:29 (1 of 3 - Risk 3-dose series) [code = HEPATITIS B VACCINES (1 of 3 - Risk 3-dose series)] Future Scheduled 2023-02-15 COVID-19 VACCINE (3 - [facility] Test 13:19:29 Pfizer series) [code = COVID-19 VACCINE (3 - Pfizer series)] Future Scheduled 2023-02-15 [address] [facility] Test 13:19:29 VACCINE (4 - PPSV23 or PCV20) [code = 65+ PNEUMOCOCCAL VACCINE (4 - PPSV23 or PCV20)] Future Scheduled 2023-02-15 INFLUENZA VACCINE (#1) [facility] Test 13:19:29 [code = INFLUENZA VACCINE (#1)] Future Scheduled 2023-02-15 Screening for [facility] Test 13:19:29 malignant neoplasm of colon (procedure) [code = [id number]] Future Scheduled 2023-02-15 Screening for [facility] Test 13:19:29 malignant neoplasm of colon (procedure) [code = 759377769] Future Scheduled 2023-02-15 Screening for [facility] Test 13:19:29 malignant neoplasm of colon (procedure) [code = 480538263] Future Scheduled 2023-02-15 SHINGLES VACCINES (1 Met [facility] Test 13:19:29 of 2) [code = SHINGLES VACCINES (1 of 2)] Future Scheduled 2023-02-15 BREAST CANCER [facility] Test 13:19:29 SCREENING [code = BREAST CANCER SCREENING] Future Scheduled 2023-02-15 Screening for [facility] Test 13:19:29 malignant neoplasm of colon (procedure) [code = 565943314] Future Scheduled 2023-02-15 Screening for [facility] Test 13:19:29 malignant neoplasm of colon (procedure) [code = 692077316] Future Scheduled 2023-02-15 HEPATITIS B VACCINES Met [facility] Test 13:19:29 (1 of 3 - Risk 3-dose series) [code = HEPATITIS B VACCINES (1 of 3 - Risk 3-dose series)] Future Scheduled 2023-02-15 COVID-19 VACCINE (3 - Me [facility] Test 13:19:29 Pfizer series) [code = COVID-19 VACCINE (3 - Pfizer series)] Future Scheduled 2023-02-15 [address] [facility] Test 13:19:29 VACCINE (4 - PPSV23 or PCV20) [code = 65+ PNEUMOCOCCAL VACCINE (4 - PPSV23 or PCV20)] Future Scheduled 2023-02-15 INFLUENZA VACCINE (#1) [facility] Test 13:19:29 [code = INFLUENZA VACCINE (#1)] Future Scheduled 2023-02-15 Screening for [facility] Test 13:19:29 malignant neoplasm of colon (procedure) [code = 501351576] Future Scheduled 2023-02-15 Screening for [facility] Test 13:19:29 malignant neoplasm of colon (procedure) [code = 335579584] Future Scheduled 2023-02-15 Screening for [facility] Test 13:19:29 malignant neoplasm of colon (procedure) [code = 509229063] Future Scheduled 2023-02-15 SHINGLES VACCINES (1 Met [facility] Test 13:19:29 of 2) [code = SHINGLES VACCINES (1 of 2)] Future Scheduled 2023-02-15 BREAST CANCER [facility] Test 13:19:29 SCREENING [code = BREAST CANCER SCREENING] Future Scheduled 2023-02-15 Screening for [facility] Test 13:19:29 malignant neoplasm of colon (procedure) [code = 782262332] Future Scheduled 2023-02-15 Screening for [facility] Test 13:19:29 malignant neoplasm of colon (procedure) [code = 738079020] Future Scheduled 2023-02-15 HEPATITIS B VACCINES Met [facility] Test 13:19:29 (1 of 3 - Risk 3-dose series) [code = HEPATITIS B VACCINES (1 of 3 - Risk 3-dose series)] Future Scheduled 2023-02-15 COVID-19 VACCINE (3 - Me [facility] Test 13:19:29 Pfizer series) [code = COVID-19 VACCINE (3 - Pfizer series)] Future Scheduled 2023-02-15 [address]+ [address] [facility] Test 13:19:29 VACCINE (4 - PPSV23 or PCV20) [code = 65+ PNEUMOCOCCAL VACCINE (4 - PPSV23 or PCV20)] Future Scheduled 2023-02-15 INFLUENZA VACCINE (#1) [facility] Test 13:19:29 [code = INFLUENZA VACCINE (#1)] Future Scheduled 2023-02-10 Screening for [facility] Test 19:08:20 malignant neoplasm of colon (procedure) [code = 749933258] Future Scheduled 2023-02-10 Screening for [facility] Test 19:08:20 malignant neoplasm of colon (procedure) [code = 997149311] Future Scheduled 2023-02-10 Screening for [facility] Test 19:08:20 malignant neoplasm of colon (procedure) [code = 524362270] Future Scheduled 2023-02-10 SHINGLES VACCINES (1 Met [facility] Test 19:08:20 of 2) [code = SHINGLES VACCINES (1 of 2)] Future Scheduled 2023-02-10 BREAST CANCER [facility] Test 19:08:20 SCREENING [code = BREAST CANCER SCREENING] Future Scheduled 2023-02-10 Screening for [facility] Test 19:08:20 malignant neoplasm of colon (procedure) [code = 317609089] Future Scheduled 2023-02-10 Screening for [facility] Test 19:08:20 malignant neoplasm of colon (procedure) [code = 834835437] Future Scheduled 2023-02-10 HEPATITIS B VACCINES Met [facility] Test 19:08:20 (1 of 3 - Risk 3-dose series) [code = HEPATITIS B VACCINES (1 of 3 - Risk 3-dose series)] Future Scheduled 2023-02-10 COVID-19 VACCINE (3 - Me [facility] Test 19:08:20 Pfizer series) [code = COVID-19 VACCINE (3 - Pfizer series)] Future Scheduled 2023-02-10 [address]+ [address] [facility] Test 19:08:20 VACCINE (4 - PPSV23 or PCV20) [code = 65+ PNEUMOCOCCAL VACCINE (4 - PPSV23 or PCV20)] Future Scheduled 2023-02-10 INFLUENZA VACCINE (#1) [facility] Test 19:08:20 [code = INFLUENZA VACCINE (#1)] Future Scheduled 2023-02-10 Screening for [facility] Test 19:08:20 malignant neoplasm of colon (procedure) [code = 792000262] Future Scheduled 2023-02-10 Screening for [facility] Test 19:08:20 malignant neoplasm of colon (procedure) [code = 478136673] Future Scheduled 2023-02-10 Screening for [facility] Test 19:08:20 malignant neoplasm of colon (procedure) [code = 472267794] Future Scheduled 2023-02-10 SHINGLES VACCINES (1 Met [facility] Test 19:08:20 of 2) [code = SHINGLES VACCINES (1 of 2)] Future Scheduled 2023-02-10 BREAST CANCER [facility] Test 19:08:20 SCREENING [code = BREAST CANCER SCREENING] Future Scheduled 2023-02-10 Screening for [facility] Test 19:08:20 malignant neoplasm of colon (procedure) [code = 987274532] Future Scheduled 2023-02-10 Screening for [facility] Test 19:08:20 malignant neoplasm of colon (procedure) [code = 439902601] Future Scheduled 2023-02-10 HEPATITIS B VACCINES Met [facility] Test 19:08:20 (1 of 3 - Risk 3-dose series) [code = HEPATITIS B VACCINES (1 of 3 - Risk 3-dose series)] Future Scheduled 2023-02-10 COVID-19 VACCINE (3 - Me [facility] Test 19:08:20 Pfizer series) [code = COVID-19 VACCINE (3 - Pfizer series)] Future Scheduled 2023-02-10 [address]+ [address] [facility] Test 19:08:20 VACCINE (4 - PPSV23 or PCV20) [code = 65+ PNEUMOCOCCAL VACCINE (4 - PPSV23 or PCV20)] Future Scheduled 2023-02-10 INFLUENZA VACCINE (#1) [facility] Test 19:08:20 [code = INFLUENZA VACCINE (#1)] Future Scheduled 2023-02-07 Screening for [facility] Test 14:07:46 malignant neoplasm of colon (procedure) [code = 939600917] Future Scheduled 2023-02-07 Screening for [facility] Test 14:07:46 malignant neoplasm of colon (procedure) [code = 461567897] Future Scheduled 2023-02-07 Screening for [facility] Test 14:07:46 malignant neoplasm of colon (procedure) [code = 444082095] Future Scheduled 2023-02-07 SHINGLES VACCINES (1 Met [facility] Test 14:07:46 of 2) [code = SHINGLES VACCINES (1 of 2)] Future Scheduled 2023-02-07 BREAST CANCER [facility] Test 14:07:46 SCREENING [code = BREAST CANCER SCREENING] Future Scheduled 2023-02-07 Screening for [facility] Test 14:07:46 malignant neoplasm of colon (procedure) [code = 250322401] Future Scheduled 2023-02-07 Screening for [facility] Test 14:07:46 malignant neoplasm of colon (procedure) [code = 236034118] Future Scheduled 2023-02-07 HEPATITIS B VACCINES Met [facility] Test 14:07:46 (1 of 3 - Risk 3-dose series) [code = HEPATITIS B VACCINES (1 of 3 - Risk 3-dose series)] Future Scheduled 2023-02-07 COVID-19 VACCINE (3 - [facility] Test 14:07:46 Pfizer series) [code = COVID-19 VACCINE (3 - Pfizer series)] Future Scheduled 2023-02-07 65+ PNEUMOCOCCAL [facility] Test 14:07:46 VACCINE (4 - PPSV23 or PCV20) [code = 65+ PNEUMOCOCCAL VACCINE (4 - PPSV23 or PCV20)] Future Scheduled 2023-02-07 INFLUENZA VACCINE (#1) [facility] Test 14:07:46 [code = INFLUENZA VACCINE (#1)] Future Scheduled 2023 Screening for [facility] Test 08:21:28 malignant neoplasm of colon (procedure) [code = 917777880] Future Scheduled 2023 Screening for [facility] Test 08:21:28 malignant neoplasm of colon (procedure) [code = 227280877] Future Scheduled 2023 Screening for [facility] Test 08:21:28 malignant neoplasm of colon (procedure) [code = 880095690] Future Scheduled 2023 SHINGLES VACCINES (1 Met [facility] Test 08:21:28 of 2) [code = SHINGLES VACCINES (1 of 2)] Future Scheduled 2023 BREAST CANCER [facility] Test 08:21:28 SCREENING [code = BREAST CANCER SCREENING] Future Scheduled 2023 Screening for [facility] Test 08:21:28 malignant neoplasm of colon (procedure) [code = 701687953] Future Scheduled 2023 Screening for [facility] Test 08:21:28 malignant neoplasm of colon (procedure) [code = 175464274] Future Scheduled 2023 HEPATITIS B VACCINES Met [facility] Test 08:21:28 (1 of 3 - Risk 3-dose series) [code = HEPATITIS B VACCINES (1 of 3 - Risk 3-dose series)] Future Scheduled 2023 COVID-19 VACCINE (3 - [facility] Test 08:21:28 Pfizer series) [code = COVID-19 VACCINE (3 - Pfizer series)] Future Scheduled 2023 66+ [address] [facility] Test 08:21:28 VACCINE (4 - PPSV23 if available, else PCV20) [code = 65+ PNEUMOCOCCAL VACCINE (4 - PPSV23 if available, else PCV20)] Future Scheduled 2023 INFLUENZA VACCINE (#1) [facility] Test 08:21:28 [code = INFLUENZA VACCINE (#1)] Future Scheduled 2023 Screening for [facility] Test 08:21:28 malignant neoplasm of colon (procedure) [code = 299458343] Future Scheduled 2023 Screening for [facility] Test 08:21:28 malignant neoplasm of colon (procedure) [code = 460046344] Future Scheduled 2023 Screening for [facility] Test 08:21:28 malignant neoplasm of colon (procedure) [code = 295847006] Future Scheduled 2023 SHINGLES VACCINES (1 Met [facility] Test 08:21:28 of 2) [code = SHINGLES VACCINES (1 of 2)] Future Scheduled 2023 BREAST CANCER [facility] Test 08:21:28 SCREENING [code = BREAST CANCER SCREENING] Future Scheduled 2023 Screening for [facility] Test 08:21:28 malignant neoplasm of colon (procedure) [code = 241171228] Future Scheduled 2023 Screening for [facility] Test 08:21:28 malignant neoplasm of colon (procedure) [code = 235094079] Future Scheduled 2023 HEPATITIS B VACCINES Met [facility] Test 08:21:28 (1 of 3 - Risk 3-dose series) [code = HEPATITIS B VACCINES (1 of 3 - Risk 3-dose series)] Future Scheduled 2023 COVID-19 VACCINE (3 - Me [facility] Test 08:21:28 Pfizer series) [code = COVID-19 VACCINE (3 - Pfizer series)] Future Scheduled 2023 66+ [address] [facility] Test 08:21:28 VACCINE (4 - PPSV23 if available, else PCV20) [code = 65+ PNEUMOCOCCAL VACCINE (4 - PPSV23 if available, else PCV20)] Future Scheduled 2023 INFLUENZA VACCINE (#1) [facility] Test 08:21:28 [code = INFLUENZA VACCINE (#1)] Future Scheduled 2023-01-17 Screening for [facility] Test 02:09:59 malignant neoplasm of colon (procedure) [code = 706774401] Future Scheduled 2023-01-17 Screening for [facility] Test 02:09:59 malignant neoplasm of colon (procedure) [code = 816747115] Future Scheduled 2023-01-17 Screening for [facility] Test 02:09:59 malignant neoplasm of colon (procedure) [code = 400255940] Future Scheduled 2023-01-17 SHINGLES VACCINES (1 Met [facility] Test 02:09:59 of 2) [code = SHINGLES VACCINES (1 of 2)] Future Scheduled 2023-01-17 BREAST CANCER [facility] Test 02:09:59 SCREENING [code = BREAST CANCER SCREENING] Future Scheduled 2023-01-17 Screening for [facility] Test 02:09:59 malignant neoplasm of colon (procedure) [code = 297888042] Future Scheduled 2023-01-17 Screening for [facility] Test 02:09:59 malignant neoplasm of colon (procedure) [code = 308229847] Future Scheduled 2023-01-17 HEPATITIS B VACCINES Met [facility] Test 02:09:59 (1 of 3 - Risk 3-dose series) [code = HEPATITIS B VACCINES (1 of 3 - Risk 3-dose series)] Future Scheduled 2023-01-17 COVID-19 VACCINE (3 - Me [facility] Test 02:09:59 Pfizer series) [code = COVID-19 VACCINE (3 - Pfizer series)] Future Scheduled 2023-01-17 [address]+ [address] [facility] Test 02:09:59 VACCINE (4 - PPSV23 if available, else PCV20) [code = 65+ PNEUMOCOCCAL VACCINE (4 - PPSV23 if available, else PCV20)] Future Scheduled 2023-01-17 INFLUENZA VACCINE (#1) [facility] Test 02:09:59 [code = INFLUENZA VACCINE (#1)] Future Scheduled 2022-12-23 Screening for [facility] Test 06:27:39 malignant neoplasm of colon (procedure) [code = 078022726] Future Scheduled 2022-12-23 Screening for [facility] Test 06:27:39 malignant neoplasm of colon (procedure) [code = 174398484] Future Scheduled 2022-12-23 Screening for [facility] Test 06:27:39 malignant neoplasm of colon (procedure) [code = 260277447] Future Scheduled 2022-12-23 SHINGLES VACCINES (1 Met [facility] Test 06:27:39 of 2) [code = SHINGLES VACCINES (1 of 2)] Future Scheduled 2022-12-23 BREAST CANCER [facility] Test 06:27:39 SCREENING [code = BREAST CANCER SCREENING] Future Scheduled 2022-12-23 Screening for [facility] Test 06:27:39 malignant neoplasm of colon (procedure) [code = 314850562] Future Scheduled 2022-12-23 Screening for [facility] Test 06:27:39 malignant neoplasm of colon (procedure) [code = 615279635] Future Scheduled 2022-12-23 HEPATITIS B VACCINES Met [facility] Test 06:27:39 (1 of 3 - Risk 3-dose series) [code = HEPATITIS B VACCINES (1 of 3 - Risk 3-dose series)] Future Scheduled 2022-12-23 COVID-19 VACCINE (3 - [facility] Test 06:27:39 Pfizer series) [code = COVID-19 VACCINE (3 - Pfizer series)] Future Scheduled 2022-12-23 [address]+ [address] [facility] Test 06:27:39 VACCINE (4 - PPSV23 if available, else PCV20) [code = 65+ PNEUMOCOCCAL VACCINE (4 - PPSV23 if available, else PCV20)] Future Scheduled 2022-12-23 INFLUENZA VACCINE [facility] Test 06:27:39 [code = INFLUENZA VACCINE] Future Scheduled 2022-12-23 Screening for [facility] Test 06:27:39 malignant neoplasm of colon (procedure) [code = 722109413] Future Scheduled 2022-12-23 Screening for [facility] Test 06:27:39 malignant neoplasm of colon (procedure) [code = 156023862] Future Scheduled 2022-12-23 Screening for [facility] Test 06:27:39 malignant neoplasm of colon (procedure) [code = 908581611] Future Scheduled 2022-12-23 SHINGLES VACCINES (1 Met [facility] Test 06:27:39 of 2) [code = SHINGLES VACCINES (1 of 2)] Future Scheduled 2022-12-23 BREAST CANCER [facility] Test 06:27:39 SCREENING [code = BREAST CANCER SCREENING] Future Scheduled 2022-12-23 Screening for [facility] Test 06:27:39 malignant neoplasm of colon (procedure) [code = 338939773] Future Scheduled 2022-12-23 Screening for [facility] Test 06:27:39 malignant neoplasm of colon (procedure) [code = 933795421] Future Scheduled 2022-12-23 HEPATITIS B VACCINES Met [facility] Test 06:27:39 (1 of 3 - Risk 3-dose series) [code = HEPATITIS B VACCINES (1 of 3 - Risk 3-dose series)] Future Scheduled 2022-12-23 COVID-19 VACCINE (3 - [facility] Test 06:27:39 Pfizer series) [code = COVID-19 VACCINE (3 - Pfizer series)] Future Scheduled 2022-12-23 65+ PNEUMOCOCCAL [facility] Test 06:27:39 VACCINE (4 - PPSV23 if available, else PCV20) [code = 65+ PNEUMOCOCCAL VACCINE (4 - PPSV23 if available, else PCV20)] Future Scheduled 2022-12-23 INFLUENZA VACCINE [facility] Test 06:27:39 [code = INFLUENZA VACCINE] Future Scheduled 2022-12-23 Screening for [facility] Test 06:27:39 malignant neoplasm of colon (procedure) [code = 911349426] Future Scheduled 2022-12-23 Screening for [facility] Test 06:27:39 malignant neoplasm of colon (procedure) [code = 330950574] Future Scheduled 2022-12-23 Screening for [facility] Test 06:27:39 malignant neoplasm of colon (procedure) [code = 069627110] Future Scheduled 2022-12-23 SHINGLES VACCINES (1 Met [facility] Test 06:27:39 of 2) [code = SHINGLES VACCINES (1 of 2)] Future Scheduled 2022-12-23 BREAST CANCER [facility] Test 06:27:39 SCREENING [code = BREAST CANCER SCREENING] Future Scheduled 2022-12-23 Screening for [facility] Test 06:27:39 malignant neoplasm of colon (procedure) [code = 093292536] Future Scheduled 2022-12-23 Screening for [facility] Test 06:27:39 malignant neoplasm of colon (procedure) [code = 734941005] Future Scheduled 2022-12-23 HEPATITIS B VACCINES Met [facility] Test 06:27:39 (1 of 3 - Risk 3-dose series) [code = HEPATITIS B VACCINES (1 of 3 - Risk 3-dose series)] Future Scheduled 2022-12-23 COVID-19 VACCINE (3 - Me [facility] Test 06:27:39 Pfizer series) [code = COVID-19 VACCINE (3 - Pfizer series)] Future Scheduled 2022-12-23 65+ [facility] 06:27:39 VACCINE (4 - PPSV23 if available, else PCV20) [code = 65+ PNEUMOCOCCAL VACCINE (4 - PPSV23 if available, else PCV20)] Future Scheduled 2022-12-23 INFLUENZA VACCINE [facility] Test 06:27:39 [code = INFLUENZA VACCINE] Future Scheduled 2022-12-23 Screening for [facility] Test 06:27:39 malignant neoplasm of colon (procedure) [code = 097409105] Future Scheduled 2022-12-23 Screening for [facility] Test 06:27:39 malignant neoplasm of colon (procedure) [code = 772573783] Future Scheduled 2022-12-23 Screening for [facility] Test 06:27:39 malignant neoplasm of colon (procedure) [code = 169329440] Future Scheduled 2022-12-23 SHINGLES VACCINES (1 Met [facility] Test 06:27:39 of 2) [code = SHINGLES VACCINES (1 of 2)] Future Scheduled 2022-12-23 BREAST CANCER [facility] Test 06:27:39 SCREENING [code = BREAST CANCER SCREENING] Future Scheduled 2022-12-23 Screening for [facility] Test 06:27:39 malignant neoplasm of colon (procedure) [code = 572634674] Future Scheduled 2022-12-23 Screening for [facility] Test 06:27:39 malignant neoplasm of colon (procedure) [code = 253881812] Future Scheduled 2022-12-23 HEPATITIS B VACCINES Met [facility] Test 06:27:39 (1 of 3 - Risk 3-dose series) [code = HEPATITIS B VACCINES (1 of 3 - Risk 3-dose series)] Future Scheduled 2022-12-23 COVID-19 VACCINE (3 - [facility] Test 06:27:39 Pfizer series) [code = COVID-19 VACCINE (3 - Pfizer series)] Future Scheduled 2022-12-23 [address]+ [address] [facility] Test 06:27:39 VACCINE (4 - PPSV23 if available, else PCV20) [code = 65+ PNEUMOCOCCAL VACCINE (4 - PPSV23 if available, else PCV20)] Future Scheduled 2022-12-23 INFLUENZA VACCINE [facility] Test 06:27:39 [code = INFLUENZA VACCINE] Future Scheduled 2022-12-23 Screening for [facility] Test 06:27:39 malignant neoplasm of colon (procedure) [code = 291448734] Future Scheduled 2022-12-23 Screening for [facility] Test 06:27:39 malignant neoplasm of colon (procedure) [code = 854067281] Future Scheduled 2022-12-23 Screening for [facility] Test 06:27:39 malignant neoplasm of colon (procedure) [code = 842129513] Future Scheduled 2022-12-23 SHINGLES VACCINES (1 Met [facility] Test 06:27:39 of 2) [code = SHINGLES VACCINES (1 of 2)] Future Scheduled 2022-12-23 BREAST CANCER [facility] Test 06:27:39 SCREENING [code = BREAST CANCER SCREENING] Future Scheduled 2022-12-23 Screening for [facility] Test 06:27:39 malignant neoplasm of colon (procedure) [code = 590672410] Future Scheduled 2022-12-23 Screening for [facility] Test 06:27:39 malignant neoplasm of colon (procedure) [code = 329084915] Future Scheduled 2022-12-23 HEPATITIS B VACCINES Met [facility] Test 06:27:39 (1 of 3 - Risk 3-dose series) [code = HEPATITIS B VACCINES (1 of 3 - Risk 3-dose series)] Future Scheduled 2022-12-23 COVID-19 VACCINE (3 - [facility] Test 06:27:39 Pfizer series) [code = COVID-19 VACCINE (3 - Pfizer series)] Future Scheduled 2022-12-23 [address] [facility] Test 06:27:39 VACCINE (4 - PPSV23 if available, else PCV20) [code = 65+ PNEUMOCOCCAL VACCINE (4 - PPSV23 if available, else PCV20)] Future Scheduled 2022-12-23 ZZZ INFLUENZA VACCINE [facility] Test 06:27:39 [code = ZZZ INFLUENZA VACCINE] Future Scheduled 2022-12-23 Screening for [facility] Test 06:27:39 malignant neoplasm of colon (procedure) [code = 788499610] Future Scheduled 2022-12-23 Screening for [facility] Test 06:27:39 malignant neoplasm of colon (procedure) [code = [id number]] Future Scheduled 2022-12-23 Screening for [facility] Test 06:27:39 malignant neoplasm of colon (procedure) [code = [id number]] Future Scheduled 2022-12-23 SHINGLES VACCINES (1 Met [facility] Test 06:27:39 of 2) [code = SHINGLES VACCINES (1 of 2)] Future Scheduled 2022-12-23 BREAST CANCER [facility] Test 06:27:39 SCREENING [code = BREAST CANCER SCREENING] Future Scheduled 2022-12-23 Screening for [facility] Test 06:27:39 malignant neoplasm of colon (procedure) [code = [id number]] Future Scheduled 2022-12-23 Screening for [facility] Test 06:27:39 malignant neoplasm of colon (procedure) [code = 900547612] Future Scheduled 2022-12-23 HEPATITIS B VACCINES Met [facility] Test 06:27:39 (1 of 3 - Risk 3-dose series) [code = HEPATITIS B VACCINES (1 of 3 - Risk 3-dose series)] Future Scheduled 2022-12-23 COVID-19 VACCINE (3 - [facility] Test 06:27:39 Pfizer series) [code = COVID-19 VACCINE (3 - Pfizer series)] Future Scheduled 2022-12-23 [address] [facility] Test 06:27:39 VACCINE (4 - PPSV23 if available, else PCV20) [code = 65+ PNEUMOCOCCAL VACCINE (4 - PPSV23 if available, else PCV20)] Future Scheduled 2022-12-23 ZZZ INFLUENZA VACCINE [facility] Test 06:27:39 [code = ZZZ INFLUENZA VACCINE] Future Scheduled 2022-12-13 Screening for [facility] Test 16:46:16 malignant neoplasm of colon (procedure) [code = [id number]] Future Scheduled 2022-12-13 Screening for [facility] Test 16:46:16 malignant neoplasm of colon (procedure) [code = 108764843] Future Scheduled 2022-12-13 Screening for [facility] Test 16:46:16 malignant neoplasm of colon (procedure) [code = 415600604] Future Scheduled 2022-12-13 SHINGLES VACCINES (1 Met [facility] Test 16:46:16 of 2) [code = SHINGLES VACCINES (1 of 2)] Future Scheduled 2022-12-13 BREAST CANCER [facility] Test 16:46:16 SCREENING [code = BREAST CANCER SCREENING] Future Scheduled 2022-12-13 Screening for [facility] Test 16:46:16 malignant neoplasm of colon (procedure) [code = 559430743] Future Scheduled 2022-12-13 Screening for [facility] Test 16:46:16 malignant neoplasm of colon (procedure) [code = 139728472] Future Scheduled 2022-12-13 HEPATITIS B VACCINES Met [facility] Test 16:46:16 (1 of 3 - Risk 3-dose series) [code = HEPATITIS B VACCINES (1 of 3 - Risk 3-dose series)] Future Scheduled 2022-12-13 COVID-19 VACCINE (3 - Me [facility] Test 16:46:16 Pfizer series) [code = COVID-19 VACCINE (3 - Pfizer series)] Future Scheduled 2022-12-13 [address]+ [address] [facility] Test 16:46:16 VACCINE (4 - PPSV23 if available, else PCV20) [code = 65+ PNEUMOCOCCAL VACCINE (4 - PPSV23 if available, else PCV20)] Future Scheduled 2022-12-13 IN[facility]UENZA VACCINE [facility] 16:46:16 [code = INFLUENZA VACCINE] Future Scheduled 2022-12-13 Screening for [facility] Test 16:46:16 malignant neoplasm of colon (procedure) [code = [id number]] Future Scheduled 2022-12-13 Screening for [facility] Test 16:46:16 malignant neoplasm of colon (procedure) [code = 861125473] Future Scheduled 2022-12-13 Screening for [facility] Test 16:46:16 malignant neoplasm of colon (procedure) [code = 271972836] Future Scheduled 2022-12-13 SHINGLES VACCINES (1 Met [facility] Test 16:46:16 of 2) [code = SHINGLES VACCINES (1 of 2)] Future Scheduled 2022-12-13 BREAST CANCER [facility] Test 16:46:16 SCREENING [code = BREAST CANCER SCREENING] Future Scheduled 2022-12-13 Screening for [facility] Test 16:46:16 malignant neoplasm of colon (procedure) [code = 830061651] Future Scheduled 2022-12-13 Screening for [facility] Test 16:46:16 malignant neoplasm of colon (procedure) [code = 575635054] Future Scheduled 2022-12-13 HEPATITIS B VACCINES Met [facility] Test 16:46:16 (1 of 3 - Risk 3-dose series) [code = HEPATITIS B VACCINES (1 of 3 - Risk 3-dose series)] Future Scheduled 2022-12-13 COVID-19 VACCINE (3 - Me [facility] Test 16:46:16 Pfizer series) [code = COVID-19 VACCINE (3 - Pfizer series)] Future Scheduled 2022-12-13 [address]+ [address] [facility] Test 16:46:16 VACCINE (4 - PPSV23 if available, else PCV20) [code = 65+ PNEUMOCOCCAL VACCINE (4 - PPSV23 if available, else PCV20)] Future Scheduled 2022-12-13 INFLUENZA VACCINE [facility] 16:46:16 [code = INFLUENZA VACCINE] Future Scheduled 2022-12-13 Screening for [facility] Test 16:46:16 malignant neoplasm of colon (procedure) [code = 367539483] Future Scheduled 2022-12-13 Screening for [facility] Test 16:46:16 malignant neoplasm of colon (procedure) [code = 131446985] Future Scheduled 2022-12-13 Screening for [facility] Test 16:46:16 malignant neoplasm of colon (procedure) [code = 258132217] Future Scheduled 2022-12-13 SHINGLES VACCINES (1 Met [facility] Test 16:46:16 of 2) [code = SHINGLES VACCINES (1 of 2)] Future Scheduled 2022-12-13 BREAST CANCER [facility] Test 16:46:16 SCREENING [code = BREAST CANCER SCREENING] Future Scheduled 2022-12-13 Screening for [facility] Test 16:46:16 malignant neoplasm of colon (procedure) [code = 393913640] Future Scheduled 2022-12-13 Screening for [facility] Test 16:46:16 malignant neoplasm of colon (procedure) [code = 739397151] Future Scheduled 2022-12-13 HEPATITIS B VACCINES Met [facility] Test 16:46:16 (1 of 3 - Risk 3-dose series) [code = HEPATITIS B VACCINES (1 of 3 - Risk 3-dose series)] Future Scheduled 2022-12-13 COVID-19 VACCINE (3 - [facility] Test 16:46:16 Pfizer series) [code = COVID-19 VACCINE (3 - Pfizer series)] Future Scheduled 2022-12-13 65+ PNEUMOCOCCAL [facility] Test 16:46:16 VACCINE (4 - PPSV23 if available, else PCV20) [code = 65+ PNEUMOCOCCAL VACCINE (4 - PPSV23 if available, else PCV20)] Future Scheduled 2022-12-13 INFLUENZA VACCINE [facility] 16:46:16 [code = INFLUENZA VACCINE] Future Scheduled 2022-11-11 Screening for [facility] Test 09:27:47 malignant neoplasm of colon (procedure) [code = 702360373] Future Scheduled 2022-11-11 Screening for [facility] Test 09:27:47 malignant neoplasm of colon (procedure) [code = 722668973] Future Scheduled 2022-11-11 Screening for [facility] Test 09:27:47 malignant neoplasm of colon (procedure) [code = 466586272] Future Scheduled 2022-11-11 SHINGLES VACCINES (1 Met [facility] Test 09:27:47 of 2) [code = SHINGLES VACCINES (1 of 2)] Future Scheduled 2022-11-11 BREAST CANCER [facility] Test 09:27:47 SCREENING [code = BREAST CANCER SCREENING] Future Scheduled 2022-11-11 Screening for [facility] Test 09:27:47 malignant neoplasm of colon (procedure) [code = 291271983] Future Scheduled 2022-11-11 Screening for [facility] Test 09:27:47 malignant neoplasm of colon (procedure) [code = 072502345] Future Scheduled 2022-11-11 HEPATITIS B VACCINES Met [facility] Test 09:27:47 (1 of 3 - Risk 3-dose series) [code = HEPATITIS B VACCINES (1 of 3 - Risk 3-dose series)] Future Scheduled 2022-11-11 COVID-19 VACCINE (3 - [facility] Test 09:27:47 Pfizer series) [code = COVID-19 VACCINE (3 - Pfizer series)] Future Scheduled 2022-11-11 [address]+ [address] [facility] Test 09:27:47 VACCINE (4 - PPSV23 if available, else PCV20) [code = 65+ PNEUMOCOCCAL VACCINE (4 - PPSV23 if available, else PCV20)] Future Scheduled 2022-11-11 INFLUENZA VACCINE [facility] 09:27:47 [code = INFLUENZA VACCINE] Future Scheduled 2022-11-11 Screening for [facility] Test 09:27:47 malignant neoplasm of colon (procedure) [code = 410463970] Future Scheduled 2022-11-11 Screening for [facility] Test 09:27:47 malignant neoplasm of colon (procedure) [code = 426346937] Future Scheduled 2022-11-11 Screening for [facility] Test 09:27:47 malignant neoplasm of colon (procedure) [code = 015065563] Future Scheduled 2022-11-11 SHINGLES VACCINES (1 Met [facility] Test 09:27:47 of 2) [code = SHINGLES VACCINES (1 of 2)] Future Scheduled 2022-11-11 BREAST CANCER [facility] Test 09:27:47 SCREENING [code = BREAST CANCER SCREENING] Future Scheduled 2022-11-11 Screening for [facility] Test 09:27:47 malignant neoplasm of colon (procedure) [code = 611293497] Future Scheduled 2022-11-11 Screening for [facility] Test 09:27:47 malignant neoplasm of colon (procedure) [code = 791229577] Future Scheduled 2022-11-11 HEPATITIS B VACCINES Met [facility] Test 09:27:47 (1 of 3 - Risk 3-dose series) [code = HEPATITIS B VACCINES (1 of 3 - Risk 3-dose series)] Future Scheduled 2022-11-11 COVID-19 VACCINE (3 - Me [facility] Test 09:27:47 Pfizer series) [code = COVID-19 VACCINE (3 - Pfizer series)] Future Scheduled 2022-11-11 [address]+ [address] [facility] Test 09:27:47 VACCINE (4 - PPSV23 if available, else PCV20) [code = 65+ PNEUMOCOCCAL VACCINE (4 - PPSV23 if available, else PCV20)] Future Scheduled 2022-11-11 INFLUENZA VACCINE [facility] 09:27:47 [code = INFLUENZA VACCINE] Future Scheduled 2022-11-11 Screening for [facility] Test 09:27:47 malignant neoplasm of colon (procedure) [code = 280030671] Future Scheduled 2022-11-11 Screening for [facility] Test 09:27:47 malignant neoplasm of colon (procedure) [code = 213181202] Future Scheduled 2022-11-11 Screening for [facility] Test 09:27:47 malignant neoplasm of colon (procedure) [code = 129981562] Future Scheduled 2022-11-11 SHINGLES VACCINES (1 Met [facility] Test 09:27:47 of 2) [code = SHINGLES VACCINES (1 of 2)] Future Scheduled 2022-11-11 BREAST CANCER [facility] Test 09:27:47 SCREENING [code = BREAST CANCER SCREENING] Future Scheduled 2022-11-11 Screening for [facility] Test 09:27:47 malignant neoplasm of colon (procedure) [code = 006527403] Future Scheduled 2022-11-11 Screening for [facility] Test 09:27:47 malignant neoplasm of colon (procedure) [code = 839500510] Future Scheduled 2022-11-11 HEPATITIS B VACCINES Met [facility] Test 09:27:47 (1 of 3 - Risk 3-dose series) [code = HEPATITIS B VACCINES (1 of 3 - Risk 3-dose series)] Future Scheduled 2022-11-11 COVID-19 VACCINE (3 - [facility] Test 09:27:47 Pfizer series) [code = COVID-19 VACCINE (3 - Pfizer series)] Future Scheduled 2022-11-11 65[facility]:47 VACCINE (4 - PPSV23 if available, else PCV20) [code = 65+ PNEUMOCOCCAL VACCINE (4 - PPSV23 if available, else PCV20)] Future Scheduled 2022-11-11 INFLUENZA VACCINE [facility] 09:27:47 [code = INFLUENZA VACCINE] Future Scheduled 2022-10-27 Screening for [facility] Test 22:40:19 malignant neoplasm of colon (procedure) [code = 219655963] Future Scheduled 2022-10-27 Screening for [facility] Test 22:40:19 malignant neoplasm of colon (procedure) [code = 335924284] Future Scheduled 2022-10-27 Screening for [facility] Test 22:40:19 malignant neoplasm of colon (procedure) [code = 983988773] Future Scheduled 2022-10-27 SHINGLES VACCINES (1 Met [facility] Test 22:40:19 of 2) [code = SHINGLES VACCINES (1 of 2)] Future Scheduled 2022-10-27 BREAST CANCER [facility] Test 22:40:19 SCREENING [code = BREAST CANCER SCREENING] Future Scheduled 2022-10-27 Screening for [facility] Test 22:40:19 malignant neoplasm of colon (procedure) [code = 854996769] Future Scheduled 2022-10-27 Screening for [facility] Test 22:40:19 malignant neoplasm of colon (procedure) [code = 409281894] Future Scheduled 2022-10-27 HEPATITIS B VACCINES Met [facility] Test 22:40:19 (1 of 3 - Risk 3-dose series) [code = HEPATITIS B VACCINES (1 of 3 - Risk 3-dose series)] Future Scheduled 2022-10-27 COVID-19 VACCINE (3 - Me [facility] Test 22:40:19 Pfizer series) [code = COVID-19 VACCINE (3 - Pfizer series)] Future Scheduled 2022-10-27 [address]+ [address] [facility] Test 22:40:19 VACCINE (4 - PPSV23 if available, else PCV20) [code = 65+ PNEUMOCOCCAL VACCINE (4 - PPSV23 if available, else PCV20)] Future Scheduled 2022-10-27 INFLUENZA VACCINE [facility] 22:40:19 [code = INFLUENZA VACCINE] Future Scheduled 2022-10-27 Screening for [facility] Test 22:40:19 malignant neoplasm of colon (procedure) [code = 991387078] Future Scheduled 2022-10-27 Screening for [facility] Test 22:40:19 malignant neoplasm of colon (procedure) [code = 698484087] Future Scheduled 2022-10-27 Screening for [facility] Test 22:40:19 malignant neoplasm of colon (procedure) [code = 054795511] Future Scheduled 2022-10-27 SHINGLES VACCINES (1 Met [facility] Test 22:40:19 of 2) [code = SHINGLES VACCINES (1 of 2)] Future Scheduled 2022-10-27 BREAST CANCER [facility] Test 22:40:19 SCREENING [code = BREAST CANCER SCREENING] Future Scheduled 2022-10-27 Screening for [facility] Test 22:40:19 malignant neoplasm of colon (procedure) [code = 654978717] Future Scheduled 2022-10-27 Screening for [facility] Test 22:40:19 malignant neoplasm of colon (procedure) [code = 638637655] Future Scheduled 2022-10-27 HEPATITIS B VACCINES Met [facility] Test 22:40:19 (1 of 3 - Risk 3-dose series) [code = HEPATITIS B VACCINES (1 of 3 - Risk 3-dose series)] Future Scheduled 2022-10-27 COVID-19 VACCINE (3 - [facility] Test 22:40:19 Pfizer series) [code = COVID-19 VACCINE (3 - Pfizer series)] Future Scheduled 2022-10-27 [address]+ [address] [facility] Test 22:40:19 VACCINE (4 - PPSV23 if available, else PCV20) [code = 65+ PNEUMOCOCCAL VACCINE (4 - PPSV23 if available, else PCV20)] Future Scheduled 2022-10-27 INFLUENZA VACCINE Method [facility] Test 22:40:19 [code = INFLUENZA VACCINE] Future Scheduled 2022-09-10 SHINGLES VACCINES (1 Met [facility] Test 15:06:53 of 2) [code = SHINGLES VACCINES (1 of 2)] Future Scheduled 2022-09-10 BREAST CANCER [facility] Test 15:06:53 SCREENING [code = BREAST CANCER [...] Scheduled 2022-09-10 COVID-19 VACCINE (3 - Me [facility] Test 15:06:53 Booster for Pfizer series) [code = COVID-19 VACCINE (3 - Booster for Pfizer series)] Future Scheduled 2022-09-10 [address]+ [address] [facility] Test 15:06:53 VACCINE (4 - PPSV23 if available, else PCV20) [code = 65+ PNEUMOCOCCAL VACCINE (4 - PPSV23 if available, else PCV20)] Future Scheduled 2022-09-10 INFLUENZA VACCINE [facility] Test 15:06:53 [code = INFLUENZA VACCINE] Future Scheduled 2022-09-10 SHINGLES VACCINES (1 Met [facility] Test 15:06:53 of 2) [code = SHINGLES VACCINES (1 of 2)] Future Scheduled 2022-09-10 BREAST CANCER [facility] Test 15:06:53 SCREENING [code = BREAST CANCER [...] Pfizer series)] Future Scheduled 2022-09-10 66+ [address] [facility] Test 15:06:53 VACCINE (4 - PPSV23 if available, else PCV20) [code = 65+ PNEUMOCOCCAL VACCINE (4 - PPSV23 if available, else PCV20)] Future Scheduled 2022-09-10 INFLUENZA VACCINE Method [facility] Test 15:06:53 [code = INFLUENZA VACCINE] Future Scheduled 2022-09-10 SHINGLES VACCINES (1 Met [facility] Test 15:06:53 of 2) [code = SHINGLES VACCINES (1 of 2)] Future Scheduled 2022-09-10 BREAST CANCER [facility] Test 15:06:53 SCREENING [code = BREAST CANCER [...] Scheduled 2022-09-10 COVID-19 VACCINE (3 - Me [facility] Test 15:06:53 Booster for Pfizer series) [code = COVID-19 VACCINE (3 - Booster for Pfizer series)] Future Scheduled 2022-09-10 65+ [facility]:06:53 VACCINE (4 - PPSV23 if available, else PCV20) [code = 65+ PNEUMOCOCCAL VACCINE (4 - PPSV23 if available, else PCV20)] Future Scheduled 2022-09-10 INFLUENZA VACCINE Method [facility] Test 15:06:53 [code = INFLUENZA VACCINE] Future Scheduled 2022-09-10 SHINGLES VACCINES (1 Met [facility] Test 15:06:53 of 2) [code = SHINGLES VACCINES (1 of 2)] Future Scheduled 2022-09-10 BREAST CANCER [facility] Test 15:06:53 SCREENING [code = BREAST CANCER [...] Pfizer series)] Future Scheduled 2022-09-10 [address]+ [address] [facility] Test 15:06:53 VACCINE (4 - PPSV23 if available, else PCV20) [code = 65+ PNEUMOCOCCAL VACCINE (4 - PPSV23 if available, else PCV20)] Future Scheduled 2022-09-10 INFLUENZA VACCINE Method [facility] Test 15:06:53 [code = INFLUENZA VACCINE] Future Scheduled 2022-09-10 SHINGLES VACCINES (1 Met [facility] Test 15:06:53 of 2) [code = SHINGLES VACCINES (1 of 2)] Future Scheduled 2022-09-10 BREAST CANCER [facility] Test 15:06:53 SCREENING [code = BREAST CANCER [...] Scheduled 2022-09-10 COVID-19 VACCINE (3 - Me [facility] Test 15:06:53 Booster for Pfizer series) [code = COVID-19 VACCINE (3 - Booster for Pfizer series)] Future Scheduled 2022-09-10 65+ [facility]AL [facility] 15:06:53 VACCINE (4 - PPSV23 if available, else PCV20) [code = 65+ PNEUMOCOCCAL VACCINE (4 - PPSV23 if available, else PCV20)] Future Scheduled 2022-09-10 INFLUENZA VACCINE Method [facility] Test 15:06:53 [code = INFLUENZA VACCINE] Future Scheduled 2022-09-10 SHINGLES VACCINES (1 Met [facility] Test 15:06:53 of 2) [code = SHINGLES VACCINES (1 of 2)] Future Scheduled 2022-09-10 BREAST CANCER [facility] Test 15:06:53 SCREENING [code = BREAST CANCER [...] Pfizer series)] Future Scheduled 2022-09-10 [address]+ [address] [facility] Test 15:06:53 VACCINE (4 - PPSV23 if available, else PCV20) [code = 65+ PNEUMOCOCCAL VACCINE (4 - PPSV23 if available, else PCV20)] Future Scheduled 2022-09-10 INFLUENZA VACCINE Method [facility] Test 15:06:53 [code = INFLUENZA VACCINE] Future Scheduled 2022-09-10 SHINGLES VACCINES (1 Met [facility] Test 15:06:53 of 2) [code = SHINGLES VACCINES (1 of 2)] Future Scheduled 2022-09-10 BREAST CANCER [facility] Test 15:06:53 SCREENING [code = BREAST CANCER [...] Scheduled 2022-09-10 COVID-19 VACCINE (3 - Me [facility] Test 15:06:53 Booster for Pfizer series) [code = COVID-19 VACCINE (3 - Booster for Pfizer series)] Future Scheduled 2022-09-10 [address]+ [address] [facility] Test 15:06:53 VACCINE (4 - PPSV23 if available, else PCV20) [code = 65+ PNEUMOCOCCAL VACCINE (4 - PPSV23 if available, else PCV20)] Future Scheduled 2022-09-10 INFLUENZA VACCINE [facility] Test 15:06:53 [code = INFLUENZA VACCINE] Future Scheduled 2022-09-10 SHINGLES VACCINES (1 Met [facility] Test 15:06:53 of 2) [code = SHINGLES VACCINES (1 of 2)] Future Scheduled 2022-09-10 BREAST CANCER [facility] Test 15:06:53 SCREENING [code = BREAST CANCER [...] Pfizer series)] Future Scheduled 2022-09-10 65+ [facility] 15:06:53 VACCINE (4 - PPSV23 if available, else PCV20) [code = 65+ PNEUMOCOCCAL VACCINE (4 - PPSV23 if available, else PCV20)] Future Scheduled 2022-09-10 INFLUENZA VACCINE Method [facility] Test 15:06:53 [code = INFLUENZA VACCINE] Future Scheduled 2022-08-26 SHINGLES VACCINES (1 Met [facility] Test 14:43:48 of 2) [code = SHINGLES VACCINES (1 of 2)] Future Scheduled 2022-08-26 BREAST CANCER [facility] Test 14:43:48 SCREENING [code = BREAST CANCER SCREENING] Future Scheduled 2022-08-26 COLONOSCOPY SCREENING Me [facility] Test 14:43:48 [code = COLONOSCOPY SCREENING] Future Scheduled 2022-08-26 HEPATITIS B VACCINES Met [facility] Test 14:43:48 (1 of 3 - Risk 3-dose series) [code = HEPATITIS B VACCINES (1 of 3 - Risk 3-dose series)] Future Scheduled 2022-08-26 COVID-19 VACCINE (3 - Me [facility] Test 14:43:48 Booster for Pfizer series) [code = COVID-19 VACCINE (3 - Booster for Pfizer series)] Future Scheduled 2022-08-26 65+ [facility]AL [facility] 14:43:48 VACCINE (4 - PPSV23 if available, else PCV20) [code = 65+ PNEUMOCOCCAL VACCINE (4 - PPSV23 if available, else PCV20)] Future Scheduled 2022-08-26 INFLUENZA VACCINE [facility] Test 14:43:48 [code = INFLUENZA VACCINE] Future Scheduled 2022-08-07 SHINGLES VACCINES (1 Met [facility] Test 23:30:11 of 2) [code = SHINGLES VACCINES (1 of 2)] Future Scheduled 2022-08-07 BREAST CANCER [facility] Test 23:30:11 SCREENING [code = BREAST CANCER [...] Scheduled 2022-08-07 COVID-19 VACCINE (3 - Me [facility] Test 23:30:11 Booster for Pfizer series) [code = COVID-19 VACCINE (3 - Booster for Pfizer series)] Future Scheduled 2022-08-07 65+ [facility] 23:30:11 VACCINE (4 - PPSV23 if available, else PCV20) [code = 65+ PNEUMOCOCCAL VACCINE (4 - PPSV23 if available, else PCV20)] Future Scheduled 2022-08-07 IN[facility]ZA VACCINE [facility] 23:30:11 [code = INFLUENZA VACCINE] Future Scheduled 2022-08-07 SHINGLES VACCINES (1 Met [facility] Test 23:30:11 of 2) [code = SHINGLES VACCINES (1 of 2)] Future Scheduled 2022-08-07 BREAST CANCER [facility] Test 23:30:11 SCREENING [code = BREAST CANCER [...] Pfizer series)] Future Scheduled 2022-08-07 [address]+ [address] [facility] Test 23:30:11 VACCINE (4 - PPSV23 if available, else PCV20) [code = 65+ PNEUMOCOCCAL VACCINE (4 - PPSV23 if available, else PCV20)] Future Scheduled 2022-08-07 INFLUENZA VACCINE [facility] 23:30:11 [code = INFLUENZA VACCINE] Future Scheduled 2022-08-06 SHINGLES VACCINES (1 Met [facility] Test 15:48:02 of 2) [code = SHINGLES VACCINES (1 of 2)] Future Scheduled 2022-08-06 BREAST CANCER [facility] Test 15:48:02 SCREENING [code = BREAST CANCER SCREENING] Future Scheduled 2022-08-06 COLONOSCOPY SCREENING [facility] Test 15:48:02 [code = COLONOSCOPY SCREENING] Future Scheduled 2022-08-06 HEPATITIS B VACCINES Met [facility] Test 15:48:02 (1 of 3 - Risk 3-dose series) [code = HEPATITIS B VACCINES (1 of 3 - Risk 3-dose series)] Future Scheduled 2022-08-06 COVID-19 VACCINE (3 - [facility] Test 15:48:02 Booster for Pfizer series) [code = COVID-19 VACCINE (3 - Booster for Pfizer series)] Future Scheduled 2022-08-06 65+ [facility] Test 15:48:02 VACCINE (4 - PPSV23 if available, else PCV20) [code = 65+ PNEUMOCOCCAL VACCINE (4 - PPSV23 if available, else PCV20)] Future Scheduled 2022-08-06 INFLUENZA VACCINE [facility] Test 15:48:02 [code = INFLUENZA VACCINE] Future Scheduled 2022-06-11 SHINGLES VACCINES (1 Met [facility] Test 16:10:12 of 2) [code = SHINGLES VACCINES (1 of 2)] Future Scheduled 2022-06-11 BREAST CANCER [facility] Test 16:10:12 SCREENING [code = BREAST [...] Scheduled 2022-06-11 COVID-19 VACCINE (3 - Me [facility] Test 16:10:12 Booster for Pfizer series) [code = COVID-19 VACCINE (3 - Booster for Pfizer series)] Future Scheduled 2022-06-11 65+ [facility] Test 16:10:12 VACCINE (4 - PPSV23 if available, else PCV20) [code = 65+ PNEUMOCOCCAL VACCINE (4 - PPSV23 if available, else PCV20)] Future Scheduled 2022-06-11 INFLUENZA VACCINE Method [facility] Test 16:10:12 [code = INFLUENZA VACCINE] Future Scheduled 2022-06-11 SHINGLES VACCINES (1 Met [facility] Test 16:10:12 of 2) [code = SHINGLES VACCINES (1 of 2)] Future Scheduled 2022-06-11 BREAST CANCER [facility] Test 16:10:12 SCREENING [code = BREAST [...] Pfizer series)] Future Scheduled 2022-06-11 65+ [facility] 16:10:12 VACCINE (4 - PPSV23 if available, else PCV20) [code = 65+ PNEUMOCOCCAL VACCINE (4 - PPSV23 if available, else PCV20)] Future Scheduled 2022-06-11 INFLUENZA VACCINE Method [facility] Test 16:10:12 [code = INFLUENZA VACCINE] Future Scheduled 2022-06-11 SHINGLES VACCINES (1 Met [facility] Test 16:10:12 of 2) [code = SHINGLES VACCINES (1 of 2)] Future Scheduled 2022-06-11 BREAST CANCER [facility] Test 16:10:12 SCREENING [code = BREAST [...] Scheduled 2022-06-11 COVID-19 VACCINE (3 - Me [facility] Test 16:10:12 Booster for Pfizer series) [code = COVID-19 VACCINE (3 - Booster for Pfizer series)] Future Scheduled 2022-06-11 65+ [facility]AL [facility] 16:10:12 VACCINE (4 - PPSV23 if [...] 2)] Future Scheduled 2022-06-11 BREAST CANCER [facility] Test 16:10:12 SCREENING [code = BREAST [...] Scheduled 2022-06-11 COVID-19 VACCINE (3 - Me [facility] Test 16:10:12 Booster for Pfizer [...] 2)] Future Scheduled 2022-06-11 BREAST CANCER [facility] Test 16:10:12 SCREENING [code = BREAST [...] 2)] Future Scheduled 2022-06-11 BREAST CANCER [facility] Test 16:10:12 SCREENING [code = BREAST CANCER SCREENING] Future Scheduled 2022-06-11 COLONOSCOPY SCREENING Me [facility] Test 16:10:12 [code = COLONOSCOPY SCREENING] Future Scheduled 2022-06-11 HEPATITIS B VACCINES Met [facility] Test 16:10:12 (1 of 3 - Risk 3-dose series) [code = HEPATITIS B VACCINES (1 of 3 - Risk 3-dose series)] Future Scheduled 2022-06-11 COVID-19 VACCINE (3 - Me [facility] Test 16:10:12 Booster for Pfizer [...] of 2)] Future Scheduled 2022-06-11 BREAST CANCER [facility] Test 16:10:12 SCREENING [code = BREAST [...] Scheduled 2022-06-11 COVID-19 VACCINE (3 - Me [facility] Test 16:10:12 Booster for Pfizer [...] 2)] Future Scheduled 2022-06-11 BREAST CANCER [facility] Test 16:10:12 SCREENING [code = BREAST [...] Scheduled 2022-06-11 COVID-19 VACCINE (3 - Me [facility] Test 16:10:12 Booster for Pfizer series) [code = COVID-19 VACCINE (3 - Booster for Pfizer series)] Future Scheduled 2022-06-11 [address] [facility] Test 16:10:12 VACCINE (4 - PPSV23 if [...] 2)] Future Scheduled 2022-06-11 BREAST CANCER [facility] Test 16:10:12 SCREENING [code = BREAST [...] Scheduled 2022-06-11 COVID-19 VACCINE (3 - Me [facility] Test 16:10:12 Booster for Pfizer series) [code = COVID-19 VACCINE (3 - Booster for Pfizer series)] Future Scheduled 2022-06-11 65+ [facility]AL [facility] 16:10:12 VACCINE (4 - PPSV23 if available, else PCV20) [code = 65+ PNEUMOCOCCAL VACCINE (4 - PPSV23 if available, else PCV20)] Future Scheduled 2022-06-11 INFLUENZA VACCINE Method [facility] Test 16:10:12 [code = INFLUENZA VACCINE] Future Scheduled 2022-05-10 SHINGLES VACCINES (1 Met [facility] Test 10:21:35 of 2) [code = SHINGLES VACCINES (1 of 2)] Future Scheduled 2022-05-10 BREAST CANCER [facility] Test 10:21:35 SCREENING [code = BREAST [...] Scheduled 2022-05-10 COVID-19 VACCINE (3 - Me [facility] Test 10:21:35 Booster for Pfizer series) [code = COVID-19 VACCINE (3 - Booster for Pfizer series)] Future Scheduled 2022-05-10 65+ [facility]CCAL [facility] 10:21:35 VACCINE (4 - PPSV23 if [...] 2)] Future Scheduled 2022-05-10 BREAST CANCER [facility] Test 10:21:35 SCREENING [code = BREAST [...] Scheduled 2022-05-10 COVID-19 VACCINE (3 - Me [facility] Test 10:21:35 Booster for Pfizer series) [code = COVID-19 VACCINE (3 - Booster for Pfizer series)] Future Scheduled 2022-05-10 65+ [facility]OCCAL [facility] Test 10:21:35 VACCINE (4 - PPSV23 if available, else PCV20) [code = 65+ PNEUMOCOCCAL VACCINE (4 - PPSV23 if available, else PCV20)] Future Scheduled 2022-05-10 INFLUENZA VACCINE Method [facility] Test 10:21:35 [code = INFLUENZA VACCINE] Future Scheduled 2022-05-06 SHINGLES VACCINES (1 Met [facility] Test 14:03:13 of 2) [code = SHINGLES VACCINES (1 of 2)] Future Scheduled 2022-05-06 BREAST CANCER [facility] Test 14:03:13 SCREENING [code = BREAST [...] Pfizer series)] Future Scheduled 2022-05-06 [address]+ [address] [facility] Test 14:03:13 VACCINE (4 - PPSV23 if available, else PCV20) [code = 65+ PNEUMOCOCCAL VACCINE (4 - PPSV23 if available, else PCV20)] Future Scheduled 2022-05-06 INFLUENZA VACCINE Method [facility] Test 14:03:13 [code = INFLUENZA VACCINE] Future Scheduled 2022-04-30 SHINGLES VACCINES (1 Met [facility] Test 01:07:32 of 2) [code = SHINGLES VACCINES (1 of 2)] Future Scheduled 2022-04-30 BREAST CANCER [facility] Test 01:07:32 SCREENING [code = BREAST [...] Pfizer series)] Future Scheduled 2022-04-30 65+ [facility]CCAL [facility] Test 01:07:32 VACCINE (4 - PPSV23 if available, else PCV20) [code = 65+ PNEUMOCOCCAL VACCINE (4 - PPSV23 if available, else PCV20)] Future Scheduled 2022-04-30 INFLUENZA VACCINE Method [facility] Test 01:07:32 [code = INFLUENZA VACCINE] Future Scheduled 2022-04-30 SHINGLES VACCINES (1 Met [facility] Test 01:07:32 of 2) [code = SHINGLES VACCINES (1 of 2)] Future Scheduled 2022-04-30 BREAST CANCER [facility] Test 01:07:32 SCREENING [code = BREAST [...] Pfizer series)] Future Scheduled 2022-04-30 [address]+ [address] [facility] Test 01:07:32 VACCINE (4 - PPSV23 if available, else PCV20) [code = 65+ PNEUMOCOCCAL VACCINE (4 - PPSV23 if available, else PCV20)] Future Scheduled 2022-04-30 INFLUENZA VACCINE [facility] Test 01:07:32 [code = INFLUENZA VACCINE] Future Scheduled 2022-04-30 SHINGLES VACCINES (1 Met [facility] Test 01:07:32 of 2) [code = SHINGLES VACCINES (1 of 2)] Future Scheduled 2022-04-30 BREAST CANCER [facility] Test 01:07:32 SCREENING [code = BREAST [...] Pfizer series)] Future Scheduled 2022-04-30 [address]+ [address] [facility] Test 01:07:32 VACCINE (4 - PPSV23 if available, else PCV20) [code = 65+ PNEUMOCOCCAL VACCINE (4 - PPSV23 if available, else PCV20)] Future Scheduled 2022-04-30 INFLUENZA VACCINE Method [facility] Test 01:07:32 [code = INFLUENZA VACCINE] Future Scheduled 2022-04-25 SHINGLES VACCINES (1 Met [facility] Test 01:45:02 of 2) [code = SHINGLES VACCINES (1 of 2)] Future Scheduled 2022-04-25 BREAST CANCER [facility] Test 01:45:02 SCREENING [code = BREAST [...] Pfizer series)] Future Scheduled 2022-04-25 66+ [address] [facility] Test 01:45:02 VACCINE (4 - PPSV23 if available, else PCV20) [code = 65+ PNEUMOCOCCAL VACCINE (4 - PPSV23 if available, else PCV20)] Future Scheduled 2022-04-25 INFLUENZA VACCINE Method [facility] Test 01:45:02 [code = INFLUENZA VACCINE] Future Scheduled 2022-03-25 SHINGLES VACCINES (1 Met [facility] Test 14:48:42 of 2) [code = SHINGLES VACCINES (1 of 2)] Future Scheduled 2022-03-25 BREAST CANCER [facility] Test 14:48:42 SCREENING [code = BREAST CANCER SCREENING] Future Scheduled 2022-03-25 COLONOSCOPY SCREENING Me [facility] Test 14:48:42 [code = COLONOSCOPY SCREENING] Future Scheduled 2022-03-25 HEPATITIS B VACCINES Met [facility] Test 14:48:42 (1 of 3 - Risk 3-dose series) [code = HEPATITIS B VACCINES (1 of 3 - Risk 3-dose series)] Future Scheduled 2022-03-25 COVID-19 VACCINE (3 - Me [facility] Hospital Test 14:48:42 Booster for Pfizer [...] 2)] Future Scheduled 2022-03-25 BREAST CANCER [facility] Test 14:48:42 SCREENING [code = BREAST [...] Scheduled 2022-03-25 COVID-19 VACCINE (3 - Me [facility] Hospital Test 14:48:42 Booster for Pfizer [...] 2)] Future Scheduled 2022-03-25 BREAST CANCER [facility] Test 14:48:42 SCREENING [code = BREAST [...] Scheduled 2022-03-25 COVID-19 VACCINE (3 - [facility] Test 14:48:42 Booster for Pfizer series) [...] 2)] Future Scheduled 2022-03-25 BREAST CANCER [facility] Test 14:48:42 SCREENING [code = BREAST [...] Scheduled 2022-03-25 COVID-19 VACCINE (3 - [facility] Test 14:48:42 Booster for Pfizer series) [...] 2)] Future Scheduled 2022-03-25 BREAST CANCER [facility] Test 14:48:42 SCREENING [code = BREAST [...] Scheduled 2022-03-25 COVID-19 VACCINE (3 - Me [facility] Test 14:48:42 Booster for [...] 2)] Future Scheduled 2022-03-25 BREAST CANCER [facility] Test 14:48:42 SCREENING [code = BREAST [...] 2)] Future Scheduled 2022-03-25 BREAST CANCER [facility] Test 14:48:42 SCREENING [code = BREAST [...] Pfizer series)] Future Scheduled 2022-03-25 [address]+ [address] [facility] Test 14:48:42 VACCINE (4 - PPSV23 if [...] 2)] Future Scheduled 2022-03-25 BREAST CANCER [facility] Test 14:48:42 SCREENING [code = BREAST [...] Scheduled 2022-03-25 COVID-19 VACCINE (3 - Me [facility] Hospital Test 14:48:42 Booster for Pfizer [...] 2)] Future Scheduled 2022-03-25 BREAST CANCER [facility] Test 14:48:42 SCREENING [code = BREAST [...] 2)] Future Scheduled 2022-03-04 BREAST CANCER [facility] Test 14:03:57 SCREENING [code = BREAST [...] Scheduled 2022-03-04 COVID-19 VACCINE (3 - Me [facility] Test 14:03:57 Booster for Pfizer series) [code = COVID-19 VACCINE (3 - Booster for Pfizer series)] Future Scheduled 2022-03-04 65+ [facility]CCAL [facility] 14:03:57 VACCINE (4 - PPSV23 if available, else PCV20) [code = 65+ PNEUMOCOCCAL VACCINE (4 - PPSV23 if available, else PCV20)] Future Scheduled 2022-03-04 [facility]ZA [facility]ACCINE [facility] Test 14:03:57 [code = INFLUENZA VACCINE] Future Scheduled 2022-03-04 SHINGLES VACCINES (1 Met [facility] Test 14:03:57 of 2) [code = SHINGLES VACCINES (1 of 2)] Future Scheduled 2022-03-04 BREAST CANCER [facility] Test 14:03:57 SCREENING [code = BREAST [...] Scheduled 2022-03-04 COVID-19 VACCINE (3 - [facility] Test 14:03:57 Booster for Pfizer series) [code = COVID-19 VACCINE (3 - Booster for Pfizer series)] Future Scheduled 2022-03-04 65+ [facility] Test 14:03:57 VACCINE (4 - PPSV23 if available, else PCV20) [code = 65+ PNEUMOCOCCAL VACCINE (4 - PPSV23 if available, else PCV20)] Future Scheduled 2022-03-04 INFLUENZA VACCINE [facility] Test 14:03:57 [code = INFLUENZA VACCINE] Future Scheduled 2022-03-04 SHINGLES VACCINES (1 Met [facility] Test 14:03:57 of 2) [code = SHINGLES VACCINES (1 of 2)] Future Scheduled 2022-03-04 BREAST CANCER [facility] Test 14:03:57 SCREENING [code = BREAST [...] Pfizer series)] Future Scheduled 2022-03-04 [address]+ [address] [facility] Test 14:03:57 VACCINE (4 - PPSV23 if available, else PCV20) [code = 65+ PNEUMOCOCCAL VACCINE (4 - PPSV23 if available, else PCV20)] Future Scheduled 2022-03-04 INFLUENZA VACCINE [facility] Test 14:03:57 [code = INFLUENZA VACCINE] Future Scheduled 2022-03-04 SHINGLES VACCINES (1 Met [facility] Test 14:03:57 of 2) [code = SHINGLES VACCINES (1 of 2)] Future Scheduled 2022-03-04 BREAST CANCER [facility] Test 14:03:57 SCREENING [code = BREAST [...] 2)] Future Scheduled 2022-02-11 BREAST CANCER [facility] Test 13:39:12 SCREENING [code = BREAST [...] Pfizer series)] Future Scheduled 2022-02-11 [address]+ [address] [facility] Test 13:39:12 VACCINE (4 - PPSV23 or [...] 2)] Future Scheduled 2022-01-29 BREAST CANCER [facility] Test 14:07:20 SCREENING [code = BREAST [...] Pfizer series)] Future Scheduled 2022-01-29 66+ [address]UM[address] [facility] Test 14:07:20 VACCINE (4 - PPSV23 or [...] 2)] Future Scheduled 2022-01-29 BREAST CANCER [facility] Test 14:07:20 SCREENING [code = BREAST [...] 2)] Future Scheduled 2022-01-29 BREAST CANCER [facility] Test 14:07:20 SCREENING [code = BREAST [...] Pfizer series)] Future Scheduled 2022-01-29 [address]+ [address] [facility] Test 14:07:20 VACCINE (4 - PPSV23 or [...] 2)] Future Scheduled 2022-01-29 BREAST CANCER [facility] Test 14:07:20 SCREENING [code = BREAST [...] Pfizer series)] Future Scheduled 2022-01-29 66+ [address] [facility] Test 14:07:20 VACCINE (4 - PPSV23 or [...] 2)] Future Scheduled 2022-01-20 Screening for [facility] Test 06:12:34 malignant neoplasm of cervix (procedure) [code = 780077610] Future Scheduled 2022-01-20 BREAST CANCER [facility] Test 06:12:34 SCREENING [code = BREAST [...] Pfizer series)] Future Scheduled 2022-01-20 [address]+ [address] [facility] Test 06:12:34 VACCINE (4 - PPSV23 or [...] 2)] Future Scheduled 2022-01-16 Screening for [facility] Test 12:09:25 malignant neoplasm of cervix (procedure) [code = [id number]] Future Scheduled 2022-01-16 BREAST CANCER [facility] Test 12:09:25 SCREENING [code = BREAST [...] Pfizer series)] Future Scheduled 2022-01-16 [address]+ [address] [facility] Test 12:09:25 VACCINE (4 - PPSV23 or [...] 2)] Future Scheduled 2022-01-14 Screening for [facility] Test 04:11:46 malignant neoplasm of cervix (procedure) [code = [id number]] Future Scheduled 2022-01-14 BREAST CANCER [facility] Test 04:11:46 SCREENING [code = BREAST [...] Pfizer series)] Future Scheduled 2022-01-14 [address]+ [address] [facility] Test 04:11:46 VACCINE (4 - PPSV23 or PCV20) [code = 65+ PNEUMOCOCCAL VACCINE (4 - PPSV23 or PCV20)] Future Scheduled 2022-01-14 INFLUENZA VACCINE Method [facility] Test 04:11:46 [code = INFLUENZA VACCINE] Future Scheduled 2021-08-26 Screening for [facility] Test 13:02:23 malignant neoplasm of cervix (procedure) [code = [id number]] Future Scheduled 2021-08-26 BREAST CANCER [facility] Test 13:02:23 SCREENING [code = BREAST CANCER SCREENING] Future Scheduled 2021-08-26 COLONOSCOPY SCREENING [facility] Test 13:02:23 [code = COLONOSCOPY SCREENING] Future Scheduled 2021-08-26 Screening for [facility] Test 13:02:23 malignant neoplasm of lung (procedure) [code = [id number]] Future Scheduled 2021-08-26 SHINGLES VACCINES (#1) M [facility] Test 13:02:23 [code = SHINGLES VACCINES (#1)] Future Scheduled 2021-08-26 COVID-19 VACCINE (3 - [facility] Test 13:02:23 Pfizer risk 4-dose series) [code = COVID-19 VACCINE (3 - Pfizer risk 4-dose series)] Future Scheduled 2021-08-26 65+ [facility]CCAL [facility] 13:02:23 VACCINE (4 of 4 - PPSV23) [code = 65+ PNEUMOCOCCAL VACCINE (4 of 4 - PPSV23)] Future Scheduled 2021-08-26 INFLUENZA VACCINE Method [facility] Test 13:02:23 [code = INFLUENZA VACCINE] Encounters Start End Encounter Admission Attending Care Care Encounter Source Date/Time Date/Time Type Type Clinicians Facility Department ID 2022-02-18 Outpatient [facility] [id number] [place] 14:30:[address] [place] [address] 2021-07-14 Outpatient SADIKOVIC, [facility] [id number] [place] 09:33:51 [facility] 2021-06-02 Outpatient HEMATPOUR, [facility] [id number] [place] 13:58:59 [facility] 2021-04-28 Outpatient HEMATPOUR, [facility] [id number] [place] 11:21:22 [facility]ASHAYAR [facility] 2021-03-20 Emergency [facility] [id number] Univers 16:07:40 [facility] 2020-12-12 Outpatient HEMATPOUR, [facility] [id number] [place] 08:16:[facility] 2020-10-31 Outpatient HEMATPOUR, [facility] [id number] [place] 09:44:50 [facility]AY[facility]alt 2020-09-30 Outpatient HEMATPOUR, [facility] [id number] [place] 13:16:03 K[facility]ASHAY[facility]alt 2023-04-01 2023-04-01 Emergency X [facility] ERT [id number] Univers 14:24:00 21:30:00 , LORENZO itcharlie [facility] 2023-04-01 2023-04-01 Emergency [facility] 1.2.840.114 [id number] Univers 14:24:00 21:30:00 , Lorenzo [place] [id number] [facility] [id number] [facility] [phone] [place] [address] Branch 2023-03-29 2023-03-29 Emergency X [facility] ERT [id number] Univers 08:15:00 16:06:00 JUKATINAIL ity [facility] 2023-03-29 2023-03-29 Emergency Anilajohannaelver [facility] [id number] Univers 08:15:00 16:06:00 Grey [place] [id number] i ty [facility] [id number] [phone] [facility] [address] Branch 2023-03-22 2023-03-22 Outpatient [id number] PRIV PRIV [id number] [facility] 00:00:00 00:00:00 diyala_S [id number] Medic al 2023-03-18 2023-03-18 Transition Tripp SHAMIKACheco 1.2.840.114 [id number] Univers 00:00:00 00:00:00 of Care Neelima PETITY [id number] it y of [id number] [phone] [facility] 403 Branch 2023-03-16 2023-03-17 Emergency Go Russell 1.2.840 .114 [id number] Univers 12:00:00 19:16:00 Scar Tennillejayashreeshirley Duglas VIVEROS [id number] ity of [facility] 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 UNIVERS 1.2.840.114 [id number] Univers 11:15:00 11:30:00 Visit Santiago Cardenas [facility] [id number] ity of [facility] [id number] [id number] [facility] [address] 2023-03-16 2023-03-16 Outpatient [facility] [id number] Univers 11:15:00 11:15:00 [facility] 2023-03-16 2023-03-16 Outpatient R [facility] [id number] Univers 09:30:00 09:30:00 [facility] 2023-03-16 2023-03-16 Orders Doctor CHRISTENSEN 1.2.840.114 [id number] [facility] Univers 00:00:00 00:00:00 Only Unassigned, JACKELINE [id number] ity of [facility] 4.2.7.2.686 Yomi as [phone] [facility] [address] 2023-03-11 2023-03-11 Outpatient R [facility] [id number] Univers 08:00:00 08:00:00 SANTIAGO y [facility] 2023-02-07 2023-02-07 Outpatient R [facility] [id number] Univers 09:00:00 09:00:00 SANTIAGO charlie [facility] 2023-01-27 2023-01-27 Emergency X Bill COLES [facility] ERT [id number] Univers 10:47:00 18:59:00 ity [facility] 2023-01-27 2023-01-27 Emergency Bill Coles [facility] 1.2.840.114 [id number] Univers 10:47:00 18:59:00 Kiersten CAIRO [id number] i [place] [phone] [facility] 084 Branch 2023-01-17 2023-01-17 [facility] [id number] Univers 00:00:00 00:00:00 [facility] [id number] i ty of [facility] [id number] [id number] [facility] [address] 2022-11-26 2022-11-26 Outpatient R [facility] [id number] Univers 08:30:00 08:30:00 ity [facility] 2022-11-15 2022-11-15 Outpatient R [facility] [id number] Univers 08:30:00 08:30:00 ity [facility] 2022-11-02 2022-11-02 Outpatient R [facility] [id number] Univers 08:30:00 08:30:00 SANTIAGO [facility] 2022-10-27 2022-10-27 Telephone [facility] 1.2.840.114 [id number] Univers 00:00:00 00:00:00 [facility] [id number] i ty [id number] [id number] [address] 2022-10-06 2022-10-06 Outpatient R [facility] [id number] Univers 09:30:00 09:30:00 SANTIAGO [facility] 2022-09-26 2022-09-26 [facility] [id number] Univers 00:00:00 00:00:00 [facility] [id number] i ty of CLINICS [place].686 [place] [id number] [address] 2022-09-03 2022-09-03 Outpatient [facility] [id number] Univers 11:00:00 11:00:00 SANTIAGO [facility] 2022-08-24 2022-08-24 [facility], 1.2.840.3 [id number] Univers 00:00:00 00:00:00 Santiago 17969.1.1 ity of 3.104.2.7 [place] .3.494277 Medica l .8 [place] 2022-05-20 2022-05-20 [facility] 1.2.840.114 99 [id number] Univers 00:00:00 00:00:00 [facility] 350.1.13.10 i ty of [place] [id number] [address] 2022-05-10 2022-05-10 Emergency X BYRON, [facility] ERT [id number] Univers 10:30:00 16:31:00 HOME ity [facility] 2022-05-10 2022-05-10 Emergency [place], TRAUMA 1.2.840.114 99 [id number] Univers 10:30:00 16:31:00 Home B CENTER 350.1.13.10 [place] [id number] [facility] 014 Branch 2022-05-10 2022-05-[address] [facility] 1.2.840.114 99 [id number] Univers 00:00:00 00:00:00 [facility] 350.1.13.10 i ty [place] [id number] [address] 2022-05-08 2022-05-08 Emergency X [facility] ERT [id number] Univers 16:18:00 18:42:00 THERESA [facility] 2022-05-08 2022-05-08 [facility] 1.2.840.114 99 [id number] Univers 16:18:00 18:42:00 Theresa BULLOCK 350.1.13.10 ity [facility] [place] [id number] [address] 2022-05-07 2022-05-[address] [facility] 1.2.840.114 99 [id number] Univers 00:00:00 00:00:00 [facility] 350.1.13.10 i ty [place] [id number] [address] 2022-05-06 2022-05-06 Emergency David [facility] E[facility] [id number] Univers 14:13:00 18:19:00 ANETTE barbosa [facility] 2022-05-06 2022-05-06 [facility] 1.2.240.842 [id number] Univers 14:13:00 18:19:00 Anette BULLOCK 350.1.13.10 ity [facility] [place].2.[place] [id number] [address] 2022-05-06 2022-05-[address] [facility] 1.2.840.114 99 [id number] Univers 00:00:00 00:00:00 [facility] HEALTH 350.1.13.10 i ty of CL[place] [id number] [address] 2022-04-22 2022-04-22 Emergency X [facility] ERT [id number] Univers 13:55:00 17:00:00 PAULETTE ity [facility] 2022-04-22 2022-04-22 Emergency [facility] 1.2.826.169 [id number] Univers 13:55:00 17:00:00 Paulette Gonzales CAIRO 350.1.13.10 i ty of [place] 4.2.7.2.686 [place] [facility] [id number] [place] [address] 2022-04-07 2022-04-07 Outpatient R [facility], [facility] [id number] Univers 20:40:00 20:40:00 ATTENDING ity [facility] 2022-04-07 2022-04-07 Telephone [place], 1.2.840.3 [id number] [id number] Univers 00:00:00 00:00:00 Robbi Hairston 16463.1.1 i ty of 3.104.2.7 [place] .3.764294 Medica l .8 [place] 2022-03-05 2022-03-05 Casing Machine Operator [place] Cardenas 1.2.840.1 [id number] Univers 13:45:00 14:00:[address] [facility] 15908.1.1 ity of 3.104.2.7 [place] .3.718463 Medica l .8 [place] 2022-03-05 2022-03-05 Office Ronald FRANCOTERESE 1.2.809.501 [id number] 8469 Univers 13:00:00 13:30:00 Visit [facility] 350.1.13.10 i ty of [facility] 4.2.7.2.686 [facility] [id number] [place] [address] [place] 2022-03-05 2022-03-05 Outpatient R [facility] [id number] Univers 13:00:00 13:00:00 SANTIAGO barbosa [facility] 2022-02-26 2022-02-26 [facility] [id number] Univers 08:30:00 08:30:00 SANTIAGO barbosa [facility] 2022-02-26 2022-02-26 Outpatient R [facility] [id number] Univers 08:30:00 08:30:00 SANTIAGO [facility] 2022-02-17 2022-02-17 Transition Stevo, 1.2.840.0 [id number] Univers 00:00:00 00:00:00 of Care Isaias Arredondo 04097.1.1 it y of 3.104.2.7 [place] .3.543095 Medica l .8 [place] 2022-02-10 2022-02-16 Inpatient X [facility] [id number] Univers 22:59:00 19:27:00 TOMY ity of [facility] 2022-02-10 2022-02-16 [facility] Miguelangel Reilly 1.2.840.1 [id number] Univers 22:59:00 19:27:00 Encounter Ofe Shields 61584.1.1 ity of [place] 3.104.2.7 [place] .3.498615 Medica l .8 [place] 2022-02-11 2022-02-11 Telephone [place], 1.2.840.2 [id number] [id number] Univers 00:00:00 00:00:00 Santiago 68783.1.1 ity of 3.104.2.7 [place] .3.854051 Medica l .8 [place] 2022-02-10 2022-02-10 Travel 1.2.840.1 1.2.716.438 7292 [id number] Univers 00:00:00 00:00:00 46938.1.1 350.1.13.10 ity of 3.104.2.7 4.2.7.3.698 [place] .3.702286 084.8 Medica l .8 [place] 2022-01-30 2022-01-30 Telephone [place], 1.2.840.6 [id number] [id number] Univers 00:00:00 00:00:00 Santiago 18377.1.1 ity of 3.104.2.7 [place] .3.937283 Medica l .8 [place] 2022-01-06 2022-01-06 Orders Doctor FERMIN 1.2.840.114 [id number] Univers 00:00:00 00:00:00 Only Unassigned, JACKELINE 350.1.13.10 ity of [place] [facility] 4.2.7.2.686 Yomi as [id number] [facility] 009 [place] 2021-12-25 2021-12-25 Orders Doctor FERMIN 1.2.840.114 [id number] Univers 00:00:00 00:00:00 Only Unassigned, JACKELINE 350.1.13.10 ity of [place] [facility] 4.2.7.2.686 Yomi as [id number] [facility] 009 [place] 2021-12-12 2021-12-13 Emergency X Bill COLES [facility] ERT [id number] Univers 23:53:00 01:52:00 ity of [facility] 2021-12-12 2021-12-13 Emergency Bill Coles [facility] 1.2.840.114 [id number] Univers 23:53:00 01:52:00 Kiersten BULLOCK 350.1.13.10 i ty of [place] [phone] [facility] 084 [place] 2021-11-20 2021-11-20 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 UNIVERSIT 1.2.840.114 9 [id number] Univers 09:45:00 10:00:[address] [facility] 350.1.13.10 ity of CLINICS 4[place] [id number] [facility] [address] 2021-11-20 2021-11-[address] [facility] 1.2.245.818 [id number] 9084 Univers 08:30:00 09:00:00 Visit [facility] 350.1.13.10 i ty of CLINICS 4[place] [id number] [facility] 089 [place] 2021-11-20 2021-11-20 Outpatient R [facility] [id number] Univers 08:30:00 08:30:00 [facility] 2021-11-20 2021-11-20 Outpatient R [facility] [id number] Univers 08:30:00 08:30:00 [facility] 2021-11-20 2021-11-20 Outpatient R [facility] [id number] Univers 08:30:00 08:30:00 SANTIAGO charlie [facility] 2021-11-20 2021-11-20 Outpatient R RONALD [facility] [id number] Univers 08:30:00 08:30:00 SANTIAGO barbosa [facility] 2021-10-24 2021-10-24 Emergency X ESVIN [facility] ERT [id number] Univers 16:27:00 22:26:00 CHARITY charlie [facility] 2021-10-24 2021-10-24 Emergency [facility] [id number] Univers 16:27:00 22:26:00 CHARITY barbosa [facility] 2021-10-24 2021-10-24 Emergency Miguelangel Reilly [facility] 1.2.840. 114 [id number] Univers 16:27:00 22:26:00 Katelynjulio cesarEric parrajose Christian [facility] 350.1.13.10 ity [facility] 4.2.7.2.686 [facility] [id number] [address] 2021-10-23 2021-10-24 Emergency [facility] [id number] Univers 20:22:00 02:57:00 CHARITY [facility] 2021-10-23 2021-10-24 Emergency [facility] 1.2.397.988 [id number] Univers 20:22:00 02:57:00 Charity [facility] 350.1.13.10 ity [facility] 4.2.7.2.686 [facility] [id number] [address] 2021-09-07 2021-09-07 Outpatient R SELF, [facility] [id number] Univers 08:00:00 08:00:00 GADIEL familia lela rodas [facility] 2021-09-07 2021-09-07 Outpatient R SELF, [facility] [id number] Univers 08:00:00 08:00:00 GADIEL vogel clark [facility] 2021-08-21 2021-08-21 Outpatient R [facility] [id number] Univers 10:45:00 10:45:00 SANTIAGO barbosa [facility] 2021-08-21 2021-08-21 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 68639.1.1 ity of 3.104.2.7 [place] .3.301144 Medica l .8 [place] 2021-08-21 2021-08-21 Office [place], 1.2.840.8 [id number] Univers 08:30:00 09:00:00 Visit Santiago 01190.1.1 ity of 3.104.2.7 [place] .3.499110 Medica l .8 [place] 2021-08-21 2021-08-21 Office [facility], [facility] 1.2.209.303 [id number] 8516 Univers 08:30:00 09:00:00 Visit Santiago [facility] 350.1.13.10 i ty of CLINICS 4.[place] 585.3421421 [facility] 089 [place] 2021-08-21 2021-08-21 Outpatient R [facility] [id number] Univers 08:30:00 08:30:00 SANTIAGO barbosa [facility] 2021-08-21 2021-08-21 Travel 1.2.840.1 1.2.453.141 [id number] 3865 Univers 00:00:00 00:00:00 73684.1.1 350.1.13.10 ity of 3.104.2.7 4.2.7.3.698 [place] .3.807205 084.8 Medica l .8 [place] 2021-08-14 2021-08-14 Telephone [place], 1.2.840.1 [id number] Univers 00:00:00 00:00:00 Santiago 52021.1.1 ity of 3.104.2.7 [place] .3.944508 Medica l .8 [place] 2021-08-13 2021-08-13 Telephone [place], 1.2.840.8 [id number] Univers 00:00:00 00:00:00 [place] 50312.1.1 [facility] 3.104.2.7 [place] .3.236538 [facility] Branch 2021-08-11 2021-08-11 Outpatient R [facility] [id number] Univers 08:00:00 08:00:00 [facility] 2021-08-05 2021-08-05 Inpatient EDUARDO LealCL OUTD [id number] [facility] 05:24:00 05:24:00 Mike 31 [facility] 2021-07-20 2021-07-20 Outpatient R [facility] [id number] Univers 10:00:00 10:00:00 [facility] 2021-07-14 2021-07-14 Office Pankaj, UTP 6400 1.2.840.114 13 [id number] [place] 08:45:00 09:34:[address] 350.1.13.58 Health 9.2.7.2.686 [id number] 1 2021-07-09 2021-07-09 Telephone [place], UTP 6400 1.2.840.114 [id number] [place] 00:00:00 00:00:[address] 350.1.13.58 Health 9.2.7.2.686 [id number] 1 2021-07-09 2021-07-09 Telephone [place], UTP 6400 1.2.840.114 [id number] [place] 00:00:00 00:00:[address] 350.1.13.58 Health 9.2.7.2.686 [id number] 1 2021-07-03 2021-07-03 Outpatient R [facility] [id number] Univers 08:00:00 08:00:00 [facility] 2021-06-17 2021-06-17 Inpatient WINTER Leal INTE.02 [id number] [facility] 10:56:00 14:36:00 Mike 47 [facility] 2021-06-15 2021-06-15 Outpatient R [facility] [id number] Univers 10:15:00 11:07:21 GADIEL rodas [facility] 2021-06-15 2021-06-15 Outpatient R SELF, [facility] [id number] Univers 10:15:00 10:15:00 GADIEL barbosa o f [facility] 2021-06-15 2021-06-15 Outpatient R SELF, [facility] [id number] Univers 10:15:00 10:15:00 GADIEL barbosa o f [facility] 2021-06-15 2021-06-15 Orders Doctor 1.2.840.3 [id number] Univers 00:00:00 00:00:00 Only Unassigned, 62636.1.1 ity of [place] 3.104.2.7 [place] .3.950619 Medica l .8 [place] 2021-06-15 2021-06-15 Travel 1.2.840.1 1.2.881.472 6487 [id number] Univers 00:00:00 00:00:00 27552.1.1 350.1.13.10 ity of 3.104.2.7 4.2.7.3.698 [place] .3.569729 084.8 Medica l .8 [place] 2021-06-11 2021-06-11 Refill [facility], UNIVERSIT 1.2.980.375 [id number] 9185 Univers 00:00:00 00:00:00 [facility] 350.1.13.10 i ty of CLINICS 4.2.[place].2.[place] [id number] [facility] porfirio 089 [place] 2021-06-11 2021-06-11 Refill [place], 1.2.840.2 [id number] 185 Univers 00:00:00 00:00:00 [place] 73243.1.1 ity of 3.104.2.7 [place] .3.213688 Medica l .8 [place] 2021-06-05 2021-06-05 Outpatient R EAST, [facility] [id number] Univers 09:00:00 09:00:00 SANTIAGO ity of [facility] 2021-06-02 2021-06-02 Telephone [place], UNIVERSIT 1.2.840.114 [id number] Univers 00:00:00 00:00:00 Santiago Y HEALTH 350.1.13.10 i ty of CLINICS 4.2.7.2.686 [place] [id number] [facility] 089 [place] 2021-06-02 2021-06-02 Telephone [place], 1.2.840.1 [id number] [id number] Univers 00:00:00 00:00:00 [place] 53010.1.1 ity of 3.104.2.7 [place] .3.937913 Medica l .8 Branch 2021-05-29 2021-05-29 Telephone [place], 1.2.840.3 [id number] [id number] Univers 00:00:00 00:00:00 [place] 04952.1.1 ity of 3.104.2.7 [place] .3.976225 Medica l .8 Branch 2021-05-29 2021-05-29 Telephone [place], 1.2.840.3 [id number] [id number] Univers 00:00:00 00:00:00 [place] 66315.1.1 ity of 3.104.2.7 [place] .3.383891 Medica l .8 [place] 2021-05-25 2021-05-25 Outpatient R RODO, [facility] [id number] Univers 08:00:00 08:00:00 GADIEL barbosa o f [facility] 2021-04-29 2021-04-29 [facility] [id number] Univers 08:00:00 08:00:00 NIKOLAI barbosa of [facility] 2021-04-28 2021-04-28 Telephone [place], UTP 6400 1.2.840.114 [id number] [place] 00:00:00 00:00:[address] 350.1.13.58 Health 9.2.7.2.686 [id number] 1 2021-04-28 2021-04-28 Telephone Cadea, 1.2.840.1 [id number] 21 [id number] Methodi 00:00:00 00:00:[address] 3.430.2.7 Hospit a .3.422777 l .8 2021-03-31 2021-03-31 Orders Carol Ann, 1.2.840.1 [id number] 21 [id number] Methodi 00:00:00 00:00:00 Only Sarai Lieberman 28568.1.1 979 s t 3.430.2.7 Hospit a .3.074058 l .8 2021-03-30 2021-03-30 Outpatient R RODO, [facility] [id number] Univers 08:45:00 08:45:00 GADIEL barbosa o f [facility] 2021-03-24 2021-03-24 Telephone Jailyn, 1.2.840.8 [id number] 21 [id number] Methodi 00:00:00 00:00:[address] 3.430.2.7 Hospit a .3.473883 l .8 2021-02-13 2021-02-13 Telephone Ronald, 1.2.840.5 [id number] 876 17524 [facility] 00:00:00 00:00:00 Santiago 70141.1.1 ity of 3.104.2.7 [place] .3.275042 Medica l .8 [place] 2021-01-28 2021-01-28 Outpatient [facility] [id number] Univers 08:45:00 09:37:00 NIKOLAI barbosa of [facility] 2021-01-28 2021-01-28 Travel 1.2.840.1 1.2.483.911 3816 9777 Univers 00:00:00 00:00:00 40574.1.1 350.1.13.10 ity of 3.104.2.7 4.2.7.3.698 [place] .3.513320 084.8 Medica l .8 [place] 2021-01-19 2021-01-19 Telephone Prabhu 1.2.840.1 [id number] [id number] Methodi 00:00:00 00:00:[address] 3.430.2.7 Hospit a .3.739278 l .8 2021-01-04 2021-01-04 Letter Shelia, 1.2.840.2 [id number] 696 Univers 00:00:00 00:00:00 (Out) Dagoberto H 27388.1.1 ity of 3.104.2.7 [place] .3.925437 Medica l .8 Branch 2021-01-04 2021-01-04 Letter Shelia, 1.2.840.6 [id number] 15111 696 Univers 00:00:00 00:00:00 (Out) Dagoberto H 47788.1.1 ity of 3.104.2.7 [place] .3.900412 Medica l .8 Branch 2021-01-03 2021-01-03 Dmitry Bass, 1.2.840.0 [id number] 73282 790 Univers 00:00:00 00:00:00 (Out) Dagoberto H 02635.1.1 ity of 3.104.2.7 [place] .3.336168 Medica l .8 [place] 2021-01-03 2021-01-03 Dmitry Bass, 1.2.840.4 [id number] 14568 790 Univers 00:00:00 00:00:00 (Out) Dagoberto H 68220.1.1 ity of 3.104.2.7 [place] .3.935971 Medica l .8 [place] 2021-01-02 2021-01-02 Outpatient R [facility] [id number] Univers 13:40:00 13:40:00 ity of [facility] 2021-01-02 2021-01-02 Laboratory Cuba Franks 1.2.840.4 [id number] Univers 12:14:13 12:57:34 Only Lab, Adc Fam Pob I 04638.1.1 ity of 3.104.2.7 [place] .3.798063 Medica l .8 [place] 2021-01-02 2021-01-02 Laboratory [place] Franks 1.2.840.3 [id number] 4004 [id number] Univers 12:14:13 12:57:34 Only Lab, Adc Fam Pob I 28875.1.1 ity of 3.104.2.7 [place] .3.121787 Medica l .8 Branch 2021-01-02 2021-01-02 Travel 1.2.840.1 1.2.596.142 6962 2306 Univers 00:00:00 00:00:00 53439.1.1 350.1.13.10 ity of 3.104.2.7 4.2.7.3.698 [place] .3.113629 084.8 Medica l .8 Branch 2021-01-02 2021-01-02 Letter Doctor 1.2.840.4 [id number] 948 Univers 00:00:00 00:00:00 (Out) Unassigned, 42596.1.1 ity of [place] 3.104.2.7 [place] .3.255196 Medica l .8 [place] 2021-01-02 2021-01-02 Letter Doctor 1.2.840.5 [id number] 98945 946 Univers 00:00:00 00:00:00 (Out) Unassigned, 83794.1.1 ity of [place] 3.104.2.7 [place] .3.044410 Medica l .8 Branch 2021-01-02 2021-01-02 Travel 1.2.840.1 1.2.694.156 3986 2306 Univers 00:00:00 00:00:00 93699.1.1 350.1.13.10 ity of 3.104.2.7 4.2.7.3.698 [place] .3.644182 084.8 Medica l .8 Branch 2021-01-02 2021-01-02 Letter Doctor 1.2.840.5 [id number] 99429 948 Univers 00:00:00 00:00:00 (Out) Unassigned, 98428.1.1 ity of [place] 3.104.2.7 [place] .3.636974 Medica l .8 Branch 2021-01-02 2021-01-02 Letter Doctor 1.2.840.8 [id number] 946 Univers 00:00:00 00:00:00 (Out) Unassigned, 90009.1.1 ity of [place] 3.104.2.7 [place] .3.066480 Medica l .8 [place] 2020-12-22 2020-12-22 Telephone [place], 1.2.840.9 [id number] 862 03849 Univers 00:00:00 00:00:00 Robbi R 91382.1.1 i ty of 3.104.2.7 [place] .3.568053 Medica l .8 [place] 2020-12-22 2020-12-22 Telephone Beltran, 1.2.840.6 [id number] 862 93819 Univers 00:00:00 00:00:00 Eligionda R 31406.1.1 i ty of 3.104.2.7 [place] .3.010108 Medica l .8 [place] 2020-12-12 2020-12-12 Office [facility], UTP 6400 1.2.840.114 12 [id number] PR 07:42:02 08:18:[address] 350.1.13.58 Health 9.2.7.2.686 [id number] 1 2020-12-12 2020-12-12 Office [place], UTP 6400 1.2.840.114 12 [id number] 07:42:02 08:18:[address] 350.1.13.58 9.2.7.2.686 [id number] 1 2020-12-09 2020-12-09 Telephone [facility], 1.2.840.1 [id number] Methodi 00:00:00 00:00:00 Sarai M. 29769.1.1 316 s t 3.430.2.7 Hospit a .3.872240 l .8 2020-12-08 2020-12-08 [facility], 1.2.840.1 [id number] 2100 031739 Methodi 12:35:54 23:59:00 Encounter Ray 91450.1.[address] 3.430.2.7 Hospit a .3.352394 l .8 2020-12-08 2020-12-08 Lab Jailyn, 1.2.840.1 [id number] 24141 58846 Methodi 17:25:00 17:30:[address] 3.430.2.7 Hospit a .3.218867 l .8 2020-12-08 2020-12-08 Office Jailyn, 1.2.840.1 [id number] 17342 77923 Methodi 10:30:00 11:39:56 Visit Ray 65530.1.[address] 3.430.2.7 Hospit a .3.383040 l .8 2020-12-08 2020-12-08 Travel 1.2.840.1 1.2.758.496 3359 438731 Methodi 00:00:00 00:00:[address] 3.430.2.7 0.2.7.3.698 Ho spita .3.950583 084.8 l .8 2020-12-02 2020-12-02 Casing Machine Operator Santiago Cardenas 1.2.840.1 [id number] Univers 10:20:06 10:36:[address] [facility] 19600.1.1 ity of 3.104.2.7 [place] .3.490423 Medica l .8 [place] 2020-12-02 2020-12-02 Casing Machine Operator Santiago Cardenas 1.2.840.1 [id number] Univers 10:20:06 10:36:[address] [facility] 67811.1.1 ity of 3.104.2.7 [place] .3.627979 Medica l .8 Branch 2020-12-02 2020-12-02 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 UNIVERSIT 1.2.840.114 8 [id number] 10:20:06 10:36:19 Visit [facility] 350.1.13.10 CLINICS 4.2.7.2.686 054.6776415 316 2020-12-02 2020-12-02 Office [facility], 1.2.840.9 [id number] 528 Univers 08:31:37 09:01:37 Visit Santiago 50951.1.1 ity of 3.104.2.7 [place] .3.278188 Medica l .8 [place] 2020-12-02 2020-12-02 Outpatient [facility] [id number] Univers 09:00:00 09:00:00 SANTIAGO ity of [facility] 2020-11-25 2020-11-25 Office Devin, 1.2.840.7 [id number] 865 Univers 11:06:30 11:58:14 Visit Robbi Marika 90255.1.1 i ty of 3.104.2.7 [place] .3.436069 Medica l .8 [place] 2020-11-25 2020-11-25 Office Devin, 1.2.840.1 [id number] 45554 865 Univers 11:06:30 11:58:14 Visit Devinaleshia Hairston 16524.1.1 i ty of 3.104.2.7 [place] .3.333625 Medica l .[address] [place] [address] 2020-11-25 2020-11-25 Office [facility] 1.2.840.114 [id number] 11:06:30 11:58:14 Visit Robbi Marika PLASTIC MACHINE OPERATOR 350.1.13.10 [facility] 4.2.7.2.686 MATERNAL [id number] & CHILD [address] [place] [address] 2020-11-25 2020-11-25 Outpatient R [facility] [id number] Univers 11:00:00 11:00:00 ity of [facility] 2020-11-25 2020-11-25 Telephone Devin, 1.2.840.6 [id number] 855 93215 Univers 00:00:00 00:00:00 Robbi Marika 71382.1.1 i ty of 3.104.2.7 [place] .3.824615 Medica l .8 [place] 2020-11-25 2020-11-25 Refill Ronald, 1.2.840.1 [id number] 592 Univers 00:00:00 00:00:00 [place] 99223.1.1 ity of 3.104.2.7 [place] .3.057027 Medica l .8 Branch 2020-11-25 2020-11-25 Travel 1.2.840.1 1.2.674.518 0832 0247 Univers 00:00:00 00:00:00 73495.1.1 350.1.13.10 ity of 3.104.2.7 4.2.7.3.698 [place] .3.975964 084.8 Medica l .8 [place] 2020-11-25 2020-11-25 Orders Doctor 1.2.840.9 [id number] 064 Univers 00:00:00 00:00:00 Only Unassigned, 28629.1.1 ity of [place] 3.104.2.7 [place] .3.636913 Medica l .8 [place] 2020-11-25 2020-11-25 Telephone Beltran, 1.2.840.2 [id number] 855 75577 Univers 00:00:00 00:00:00 Robbi Hairston 73455.1.1 i ty of 3.104.2.7 [place] .3.066503 Medica l .8 [place] 2020-11-25 2020-11-25 Refill [place], 1.2.840.5 [id number] 56367 592 Univers 00:00:00 00:00:00 [place] 84119.1.1 ity of 3.104.2.7 [place] .3.616269 Medica l .8 [place] 2020-11-25 2020-11-25 Travel 1.2.840.1 1.2.285.675 2985 0247 Univers 00:00:00 00:00:00 25348.1.1 350.1.13.10 ity of 3.104.2.7 4.2.7.3.698 [place] .3.125388 084.8 Medica l .8 [place] 2020-11-25 2020-11-25 Orders Doctor 1.2.840.1 [id number] 80430 064 Univers 00:00:00 00:00:00 Only Unassigned, 15176.1.1 ity of [place] 3.104.2.7 [place] .3.766982 Medica l .8 Branch 2020-11-25 2020-11-25 Formerly [facility] 1.2.372.018 7817 4592 00:00:00 00:00:00 [facility] 350.1.13.10 [facility] 4.2.7.2.686 [id number] 089 2020-11-25 2020-11-25 [facility]phone [facility] 1.2.049.679 5428 0821 00:00:00 00:00:00 Robbi Hairston PLASTIC MACHINE OPERATOR 350.1.13.10 [facility] 4.2.7.2.686 MATERNAL [id number] & CHILD [address] [place] [address] 2020-11-14 2020-11-14 Abstract Clark, 1.2.840.1 [id number] 16121 77933 Methodi 00:00:00 00:00:[address] 3.430.2.7 Hospit a .3.206875 l .8 2020-11-14 2020-11-14 Telephone Clark 1.2.840.1 [id number] 2100 605674 Methodi 00:00:00 00:00:[address] 3.430.2.7 Hospit a .3.068776 l .8 2020-11-12 2020-11-12 Outpatient [facility] [id number] Univers 08:30:00 08:30:00 [place] [facility] 2020-11-07 2020-11-07 Telephone Agustina Ortiz 6400 1.2.840.11 4 [id number] PR 00:00:00 00:00:[address] 350.1.13.58 Health 9.2.7.2.686 [id number] 1 2020-11-07 2020-11-07 Telephone KIMBERLEY Ortiz 6400 1.2.840.114 124 [id number] 00:00:00 00:00:[address] 350.1.13.58 9.2.7.2.686 [id number] 1 2020-10-312020-10-31 Office Hematpour, UTP 6400 1.2.840.114 12 [id number] PR 07:54:00 09:45:[address] 350.1.13.58 Health 9.2.7.2.686 [id number] 1 2020-10-30 2020-10-30 Abstract Rody Maguire UTP 6400 1.2.840.1 14 [id number] PR 00:00:00 00:00:[address] 350.1.13.58 Health 9.2.7.2.686 [id number] 1 2020-10-29 2020-10-29 Refill [place], 1.2.840.5 [id number] 93331 400 Univers 00:00:00 00:00:00 [place] 79930.1.1 ity of 3.104.2.7 [place] .3.710987 Medica l .8 [place] 2020-10-29 2020-10-29 Refill [place], 1.2.840.9 [id number] 53196 400 Univers 00:00:00 00:00:00 [place] 87743.1.1 ity of 3.104.2.7 [place] .3.538885 Medica l .8 [place] 2020-10-27 2020-10-27 Telephone Cadea, 1.2.840.2 [id number] 21 [id number] Methodi 00:00:00 00:00:[address] 3.430.2.7 Hospit a .3.403699 l .8 2020-10-24 2020-10-24 Telephone Clark, 1.2.840.1 [id number] 2100 [id number] Methodi 00:00:00 00:00:[address] 3.430.2.7 Hospit a .3.074983 l .8 2020-10-22 2020-10-22 Outpatient R RODO, [facility] [id number] [facility] 13:00:00 13:00:00 GADIEL rodas [facility] 2020-10-22 2020-10-22 Travel 1.2.840.1 1.2.528.030 [id number] [id number] Univers 00:00:00 00:00:00 39384.1.1 350.1.13.10 ity of 3.104.2.[place].698 [place] .3.569[place] 084.8 Medica l .8 Branch 2020-10-22 2020-10-22 Travel 1.2.840.1 1.2.981.101 5692 3839 Univers 00:00:00 00:00:00 59776.1.1 350.1.13.10 ity of 3.104.2.[place].698 [place]3.5738[place] 084.8 Medica l .8 [place] 2020-10-13 2020-10-13 Outpatient R RODO, [facility] [id number] Univers 08:45:00 08:45:00 GADIEL vogel f [facility] 2020-10-06 2020-10-12 [facility] 1.2.840.1 [id number] Methodi 15:30:00 00:08:46 ne Ray 84016.1.[address] 3.430.2.7 Hospit a .3.351821 l .8 2020-09-30 2020-09-30 Telephone [facility], 1.2.840.4 [id number] Methodi 00:00:00 00:00:[address] 3.430.2.7 Hospit a .3.124733 l .8 2020-09-21 2020-09-21 Travel 1.2.840.1 1.2.590.130 [id number] Methodi 00:00:00 00:00:[address] 3.430.2.7 0.2.7.3.698 Ho spita .3.451889 084.8 l .8 2020-09-06 2020-09-06 [facility] 1.2.840.1 [id number] Methodi 17:42:30 23:59:[address] 3.430.2.7 Hospit a .3.587480 l .8 2020-09-06 2020-09-06 [facility], 1.2.840.1 [id number] Methodi 16:50:00 17:41:00 Encounter Ray 70039.1.[address] 3.430.2.7 Hospit a .3.166220 l .8 2020-09-05 2020-09-05 [facility], 1.2.840.1 [id number] 2099 [id number] Methodi 09:17:00 19:45:00 Encounter Ray [address]30.1.[address] 3.430.2.7 Hospit a .3.553868 l .8 2020-09-05 2020-09-05 Surgery [facility], 1.2.840.1 [id number] Methodi 11:30:00 13:15:[address] 3.430.2.7 Hospit a .3.356759 l .8 2020-09-05 2020-09-05 Anesthesia Remigio, 1.2.840.1 [id number] Methodi 11:27:00 12:20:00 Event Kirit 38294.1.1 243 s t V. 3.430.2.7 Hospit a .3.434336 l .8 2020-09-05 2020-09-05 Travel 1.2.840.1 1.2.641.315 8203 [id number] Methodi 00:00:00 00:00:[address] 3.430.2.7 0.2.7.3.698 Ho spita .3.402508 084.8 l .8 2020-09-04 2020-09-04 Telephone Carol Ann, 1.2.840.1 [id number] Methodi 00:00:00 00:00:00 Sarai CorbinChelsie 63573.1.1 762 s t 3.430.2.7 Hospit a .3.248575 l .8 2020-09-02 2020-09-02 Telephone Carol Ann, 1.2.840.1 [id number] Methodi 00:00:00 00:00:00 Sarai CorbinChelsie 21073.1.1 344 s t 3.430.2.7 Hospit a .3.399177 l .8 2020-08-29 2020-08-30 Bedded [facility] [id number] Memoria 10:20:00 14:10:00 Outpatient r [place] 00 [facility] 2020-08-29 2020-08-30 Outpatient HEMATPOUR, [facility] CAR 7500 [facility] 05:20:00 09:10:00 BEVERLY 2020-08-06 2020-08-06 Office [place], 1.2.840.5 [id number] Univers 08:03:23 09:17:49 Visit Santiago 00199.1.1 ity of 3.104.2.7 [place] .3.701319 Medica l .8 [place] 2020-08-06 2020-08-06 Outpatient R EAST, [facility] [id number] Univers 08:30:00 08:30:00 SANTIAGO barbosa of [facility] 2020-07-14 2020-07-14 Outpatient R SELF, [facility] [id number] Univers 09:30:00 09:30:00 GADIEL barbosa o f [facility] 2020-07-14 2020-07-14 Travel 1.2.840.1 1.2.197.120 9088 [id number] Univers 00:00:00 00:00:00 34615.1.1 350.1.13.10 ity of 3.104.2.7 [place].3.698 [place] .3.022608 084.8 Medica l .8 [place] 2020-07-14 2020-07-14 Orders Doctor 1.2.840.4 [id number] Univers 00:00:00 00:00:00 Only Unassigned, 59118.1.1 ity of [place] 3.104.2.7 [place] .3.256046 Medica l .8 [place] 2020-06-16 2020-06-16 Outpatient R SELF, [facility] [id number] Univers 08:00:00 08:00:00 GADIEL macielcharlie o f [facility] 2020-06-06 2020-06-06 Telephone [place], 1.2.840.0 [id number] Univers 00:00:00 00:00:00 Santiago 39422.1.1 ity of 3.104.2.7 [place] .3.439123 Medica l .8 [place] 2020-06-04 2020-06-04 Casing Machine Operator [place] Cardenas 1.2.840.1 [id number] Univers 09:31:58 09:40:[address] [facility] 25736.1.1 ity of 3.104.2.7 [place] .3.593274 Medica l .8 [place] 2020-06-04 2020-06-04 Office [facility], [facility] 1.2.664.401 8424 [id number] Univers 08:13:41 09:28:25 Visit Santiago [facility] 350.1.13.10 i ty of CL[place] 221.9065442 Medi porfirio 089 [place] 2020-06-04 2020-06-04 Outpatient R RONALD, [facility] [id number] Univers 08:30:00 08:30:00 SANTIAGO barbosa of [facility] 2020-06-04 2020-06-04 Orders Doctor 1.2.840.0 [id number] Univers 00:00:00 00:00:00 Only Unassigned, 88466.1.1 ity of [place] 3.104.2.7 [place] .3.325906 Medica l .8 [place] 2020-05-19 2020-05-19 Telephone [place], 1.2.840.9 [id number] [id number] Univers 00:00:00 00:00:00 Santiago 51415.1.1 ity of 3.104.2.7 [place] .3.598712 Medica l .8 [place] 2020-04-24 2020-04-24 Telephone [place], 1.2.840.4 [id number] Univers 00:00:00 00:00:00 Santiago 60347.1.1 ity of 3.104.2.7 [place] .3.120145 Medica l .8 [place] 2020-04-14 2020-04-14 Outpatient R EAST, [facility] [id number] Univers 09:00:00 09:00:00 SANTIAGO ity [facility] 2020-04-14 2020-04-14 Telephone [place], 1.2.840.1 [id number] Univers 00:00:00 00:00:00 Santiago 73525.1.1 ity of 3.104.2.7 [place] .3.354873 Medica l .8 [place] 2020-03-31 2020-03-31 Outpatient R EAST, [facility] [id number] Univers 08:30:00 08:30:00 SANTIAGO ity [facility] 2020-03-03 2020-03-03 Outpatient R SELF, [facility] [id number] Univers 08:00:00 08:00:00 GADIEL barbosa o [facility] 2020-03-03 2020-03-03 Outpatient R SELF, [facility] [id number] Univers 08:00:00 08:00:00 GADIEL barbosa o [facility] 2020-03-03 2020-03-03 Travel 1.2.840.1 1.2.995.155 0208 [id number] Univers 00:00:00 00:00:00 17543.1.1 350.1.13.10 ity of 3.104.2.7 [place].3.698 [place] .3.927730 084.8 Medica l .8 [place] 2020-02-06 2020-02-06 Telephone [place], 1.2.840.8 [id number] [id number] Univers 00:00:00 00:00:00 [place] 78331.1.1 ity of 3.104.2.7 [place] .3.341974 Medica l .8 [place] 2020-01-26 2020-01-26 Emergency Caridad, 1.2.840.8 [id number] [id number] Univers 10:03:00 13:05:00 Cynise 71207.1.1 ity of 3.104.2.7 [place] .3.059730 Medica l .8 [place] 2020-01-26 2020-01-26 Travel 1.2.840.1 1.2.767.497 8227 0120 Univers 00:00:00 00:00:00 19581.1.1 350.1.13.10 ity of 3.104.2.7 4[place].3.698 [place] .3.288406 084.8 Medica l .8 [place] 2020-01-25 2020-01-25 Outpatient R EAST, [facility] [id number] Univers 08:30:00 08:30:00 SANTIAGO ity [facility] 2020-01-25 2020-01-25 Telemedici [place], 1.2.840.6 [id number] Univers 07:36:49 08:06:49 ne Visit Santiago 33447.1.1 ity of 3.104.2.7 [place] .3.858575 Medica l .8 [place] 2020-01-16 2020-01-16 [facility] [id number] Univers 08:00:00 08:00:00 SANTIAGO ity [facility] 2020-01-16 2020-01-16 Telephone East, 1.2.840.0 [id number] Univers 00:00:00 00:00:00 [place] 19338.1.1 ity of 3.104.2.7 [place] .3.769809 Medica l .8 [place] 2020-01-14 2020-01-14 Outpatient R SELF, [facility] [id number] Univers 08:00:00 08:00:00 GADIEL vogel f [facility] 2019-12-31 2019-12-31 Outpatient R SELF, [facility] [id number] Univers 08:45:00 08:45:00 GADIEL vogel f [facility] 2019-10-17 2019-10-17 Outpatient R EAST, [facility] [id number] Univers 08:30:00 08:30:00 SANTIAGO ity [facility] 2019-10-12 2019-10-12 Outpatient R EAST, [facility] [id number] Univers 13:00:00 13:00:00 SANTIAGO ity of [facility] 2019-10-12 2019-10-12 Telemedici [place], 1.2.840.4 [id number] Univers 07:38:30 08:08:30 ne Visit [place] 82469.1.1 ity of 3.104.2.7 [place] .3.365586 Medica l .8 [place] 2019-10-08 2019-10-08 [facility] [id number] Univers 10:15:00 10:15:00 GADIEL ity o f [facility] 2019-10-03 2019-10-03 Case Judyman, 1.2.840.4 [id number] Univers 00:00:00 00:00:00 Management Michael Corbin 88115.1.1 i ty of 3.104.2.7 [place] .3.743517 Medica l .8 [place] 2019-09-27 2019-09-27 Telephone East, 1.2.840.5 [id number] Univers 00:00:00 00:00:00 [place] 23887.1.1 ity of 3.104.2.7 [place] .3.836139 Medica l .8 [place] 2019-09-04 2019-09-04 Refill [place], 1.2.840.9 [id number] Univers 00:00:00 00:00:00 Santiago 41700.1.1 ity of 3.104.2.7 [place] .3.491959 Medica l .8 [place] 2019-07-24 2019-07-24 Outpatient R [facility] [id number] Univers 08:30:00 08:30:00 SANTIAGO ity of [facility] 2019-07-17 2019-07-17 [facility] [id number] Univers 10:00:00 10:00:00 SANTIAGO ity of [facility] 2019-06-15 2019-06-15 Telephone East, 1.2.840.9 [id number] Univers 00:00:00 00:00:00 [place] 73414.1.1 ity of 3.104.2.7 [place] .3.529078 Medica l .8 [place] 2019-06-13 2019-06-13 Telephone Team, [facility] [place] [facility] 1.2.840.6 [id number] Univers 00:00:00 00:00:00 Health 68286.1.1 ity [place] .3.707606 Medica l .8 Branch 2019-05-10 2019-05-10 Refill Ronald, 1.2.840.8 [id number] Univers 00:00:00 00:00:00 [place] 03026.1.1 ity of 3.104.2.7 [place] .3.106959 Medica l .8 [place] 2019-05-09 2019-05-09 Refill Ronald, 1.2.840.7 [id number] Univers 00:00:00 00:00:00 [place] 49157.1.1 ity of 3.104.2.7 [place] .3.274414 Medica l .8 [place] 2019-04-30 2019-04-30 Outpatient R RODO, [facility] [id number] Univers 10:15:00 10:33:05 GADIEL barbosa o f [facility] 2019-04-18 2019-04-18 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 57134.1.1 ity of 3.104.2.7 [place] .3.224530 Medica l .8 [place] 2019-04-18 2019-04-18 Outpatient R RONALD [facility] [id number] Univers 10:00:00 10:44:31 SANTIAGO ity of [facility] 2019-04-18 2019-04-18 Office Ronald, 1.2.840.5 [id number] Univers 08:27:44 09:53:27 Visit Santiago 61070.1.1 ity of 3.104.2.7 [place] .3.776613 Medica l .8 [place] 2019-04-18 2019-04-18 Orders Doctor 1.2.840.9 [id number] Univers 00:00:00 00:00:00 Only Unassigned, 17047.1.1 ity of [place] 3.104.2.7 [place] .3.948224 Medica l .8 Branch 2019-04-11 2019-04-11 Refill East, 1.2.840.3 [id number] Univers 00:00:00 00:00:00 [place] 33764.1.1 ity of 3.104.2.7 [place] .3.657757 Medica l .8 Branch 2019-04-09 2019-04-09 Refill [place], 1.2.840.3 [id number] Univers 00:00:00 00:00:00 [place] 72257.1.1 ity of 3.104.2.7 [place] .3.223614 Medica l .8 [place] 2019-04-03 2019-04-03 Telephone Team, [facility] [place] [facility] 1.2.840.2 [id number] Univers 00:00:00 00:00:00 Health 56771.1.1 ity [place].2.[place] .3.883038 Medica l .8 [place] 2019-03-27 2019-03-27 Telephone Self, 1.2.840.9 [id number] Univers 00:00:00 00:00:00 Gadiel 34605.1.1 ity of 3.104.2.7 [place] .3.630653 Medica l .8 [place] 2019-01-17 2019-01-17 Office East, 1.2.840.0 [id number] Univers 07:37:21 10:32:51 Visit Santiago 35773.1.1 ity of 3.104.2.7 [place] .3.668658 Medica l .8 Branch 2019-01-04 2019-01-12 Office Eveline Hansen 1.2.840.9 [id number] Univers 11:19:32 11:08:05 Visit Mariela 89118.1.1 ity of 3.104.2.7 [place] .3.381484 Medica l .8 Branch 2019-01-10 2019-01-10 Telephone Stanislav, 1.2.840.3 [id number] [id number] Univers 00:00:00 00:00:00 Eladio Inman 66377.1.1 ity of 3.104.2.7 [place] .3.144334 Medica l .8 Branch 2018-12-18 2018-12-18 Office Geraldine, 1.2.840.8 [id number] Univers 08:48:45 09:13:43 Visit Leyda 70609.1.1 it y of 3.104.2.7 [place] .3.161319 Medica l .8 Branch 2018-10-30 2018-10-30 Telephone East, 1.2.840.0 [id number] Univers 00:00:00 00:00:00 [place] 30038.1.1 ity of 3.104.2.7 [place] .3.579455 Medica l .8 Branch 2018-10-23 2018-10-23 Orders Doctor 1.2.840.2 [id number] Univers 00:00:00 00:00:00 Only Unassigned, 99272.1.1 ity of [place] 3.104.2.7 [place] .3.700947 Medica l .8 Branch 2018-10-23 2018-10-23 Nurse Selvin, 1.2.840.9 [id number] Univers 00:00:00 00:00:00 Triage Stefanie 53959.1.1 ity of 3.104.2.7 [place] .3.071521 Medica l .8 Branch 2018-10-23 2018-10-23 Telephone Self, 1.2.840.4 [id number] Univers 00:00:00 00:00:00 Gadiel 21952.1.1 ity of 3.104.2.7 [place] .3.080151 Medica l .8 Branch 2018-10-20 2018-10-20 Telephone Self, 1.2.840.1 [id number] Univers 00:00:00 00:00:00 Gadiel 79307.1.1 ity of 3.104.2.7 [place] .3.549636 Medica l .8 [place] Results Test Description Test Time Test Comments Results Result Comments Source CBC WITH DIFF 2023-04-02 00:37:11 Test Item Value Reference Range Interpretation Comme nts WBC (test code = 6690-2) 4.79 See_Comment [A utomated message] The system which ge nerated this result transmit arpit reference range: 4.30 - 1 1.10 10*3/?L. The reference r abbey was not used to interpr et this result as normal/abnor mal. RBC (test code = 789-8) 4.26 See_Comment [Au tomated message] The system which ge nerated this result transmit arpit reference range: 3.93 - 5 .25 10*6/?L. The reference r abbey was not used to interpr et this result as normal/abnor mal. HGB (test code = 718-7) 11.2 g/dL 11.6-15.0 L HCT (test code = 4544-3) 35.5 % 35.7-45.2 L MCV (test code = 787-2) 83.3 fL 80.6-95.5 MCH (test code = 785-6) 26.3 pg 25.9-32.8 MCHC (test code = 786-4) 31.5 g/dL 31.6-35.1 L RDW-SD (test code = 00276-3) 49.9 fL 39.0-49.9 RDW-CV (test code = 788-0) 17.2 % 12.0-15.5 H PLT (test code = 777-3) 89 See_Comment L [Au tomated message] The system which ge nerated this result transmit arpit reference range: 166 - 35 8 10*3/?L. The reference range was not used to interpret th is result as normal/abnormal . MPV (test code = 11886-1) 10.6 fL 9.5-12.9 NRBC/100 WBC (test code = 0.0 See_Comment [ Automated message] The 2858552935) system which ge nerated this result transmit arpit reference range: 0.0 - 10 .0 /100 WBCs. The reference r abbey was not used to interpr et this result as normal/abnor mal. NRBC x10^3 (test code = See_Comment [Au tomated message] The 2248688372) system which ge nerated this result transmit arpit reference range: 10*3/?L. The reference range was not u sed to interpret this result as normal/abnormal . SEG % (test code = 78554-7) 68 % 33-76 LYMPH % (test code = 20 % 14-54 62351-4) MONO % (test code = 46564-5) 11 % 0-4 H EOS % (test code = 62274-8) 1 % 0-3 ANC (test code = 753-4) 3.26 10*3/uL 1.88-7.09 Lab Interpretation (test Abnormal code = 81804-2) [facility]. METABOLIC PANEL (03992)2023-04-02 00:35:30 Test Item Value Reference Range Interpretation Comments NA (test code = 3389145477) 139 mmol/L 135-145 K (test code = 0409252110) 3.0 mmol/L 3.5-5.0 L CL (test code = 3914682045) 104 mmol/L 98-108 CO2 TOTAL (test code = 7824431107) 28 mmol/L 23-31 AGAP (test code = 9300239975) 7 2-16 BUN (test code = 2948268757) 21 mg/dL 7-23 GLUCOSE (test code = 7826302540) 100 mg/dL 70-110 CREATININE (test code = 1.32 mg/dL 0.50-1.04 H 3368066150) TOTAL BILI (test code = 0.4 mg/dL 0.1-1.1 8438343183) CALCIUM (test code = 0371059278) 8.4 mg/dL 8.6-10.6 L T PROTEIN (test code = 4892544333) 7.1 g/dL 6.3-8.2 ALBUMIN (test code = 5346799363) 4.0 g/dL 3.5-5.0 ALK PHOS (test code = 6013968111) 78 U/L 34-122 ALTv (test code = 1742-6) 13 U/L 5-35 AST(SGOT) (test code = 4004343551) 23 U/L 13-40 eGFR (test code = 58213-1) 44.3 mL/min/1.73m2 Lab Interpretation (test code = Abnormal 74138-1) [facility] Test Item Value Reference Range Interpretation Comments LIPASE (test code = 0169728825) 129 U/L 0-220 Lab Interpretation (test code = Normal 96334-6) [facility] [id number] 15:55:44 Test Item Value Reference Range Interpretation Comments CRP (test code = 5440634733) 0.3 mg/dL <=0.8 Lab Interpretation (test code = Normal 14605-0) [facility] HospitalGlycosylated Hemoglobin [id number] 15:23:48 Test Item Value Reference Range Interpretation Comments HGB A1C (test code = 5.3 % 4.0-5.7 4548-4) KYLE (test code = KYLE) Reference RangesNormal: <5.7%Prediabetes: 5.7 - 6.4%Diabetes: > 6.5% Lab Interpretation (test Normal code = 44973-7) [facility] [id number] 13:38:20 Test Item Value Reference Range Interpretation Comments IRON (test code = 54 ug/dL 50-160 Slight hem olysis 2785671949) TIBC (test code = 430 ug/dL 250-410 H 7876739463) % FE SAT (test code = 13 % 20-50 L 4984771745) Lab Interpretation (test Abnormal code = 87372-7) [facility] [id number] 12:04:28 Test Item Value Reference Range Interpretation Comments FREE T3 (test code = 7126583475) 6.12 pg/mL 2.77-5.27 H Lab Interpretation (test code = Abnormal 74458-5) [facility] [id number] 12:04:28 Test Item Value Reference Range Interpretation Comments FREE T4 (test code = 1.67 See_Comment [Autom ated message] 1101995570) The system [employer] generated this result transmitted ref erence range: 0.78 - 2 .20 ng/dL:. The ref erence range was not u sed to interpret this result as normal/abnor mal. Lab Interpretation (test Normal code = 51108-6) [facility]2023-10-26 09:29:44 Test Item Value Reference Range Interpretation Comments MAGNESIUM (test code = 1431285238) 2.1 mg/dL 1.7-2.4 Lab Interpretation (test code = Normal 69988-2) [facility] METABOLIC PANEL (NA, K, CL, CO2, GLUCOSE, BUN, CREATININE, CA)2023-03-17 09:29:43 Test Item Value Reference Range Interpretation Comments NA (test code = 137 mmol/L 135-145 3516691760) K (test code = 3.5 mmol/L 3.5-5.0 Slight 0933447053) hemolysis CL (test code = 103 mmol/L 98-108 9853214422) CO2 TOTAL (test code 25 mmol/L 23-31 = 7508787185) AGAP (test code = 9 2-16 9722466402) BUN (test code = 29 mg/dL 7-23 H Slight 5779973632) hemolysis GLUCOSE (test code = 138 mg/dL 70-110 H 6317830317) CREATININE (test code 1.16 mg/dL 0.50-1.04 H = 8616506674) CALCIUM (test code = 8.5 mg/dL 8.6-10.6 L 6876526416) eGFR (test code = 46.6 mL/min/1.73m2 5053325227) KYLE (test code = KYLE) Association of [...] tests). Lab Interpretation Abnormal (test code = 42956-9) [facility] HospitalThyroid Stimulating Hormone (TSH)2023-03-17 07:17:33 Test Item Value Reference Range Interpretation Comments TSH (test code = 7.55 See_Comment H [Automated message] 7550733126) The system [employer] generated this result transmitted ref erence range: 0.45 - 4 .70 mIU/L. The refe rence range was not u sed to interpret this result as normal/abnor mal. Lab Interpretation (test Abnormal code = 73781-4) [facility] HospitalSedimentation [id number] 06:57:22 Test Item Value Reference Range Interpretation Comments ESR (test code = 11979-7) 26 See_Comment [ Automated message] The system [employer] generated this result transmitted ref erence range: 2 - 30 m m/HR. The reference r abbey was not used to interpret this result as normal/abnor mal. Lab Interpretation (test Normal code = 97682-4) [facility] HospitalDrug Screen Panel 3 [id number] 06:49:37 Test Item Value Reference Range Interpretation Comments ESTELA S (test code = Negative Negative 2704158535) BENZO S (test code = Negative Negative 2398706766) TRICYCLIC (test code = Negative Negative 4307967898) KYLE (test code = KYLE) Serum Drug [...] testing). Lab Interpretation Normal (test code = 75842-0) [facility] HospitalLip[facility] (Total Cholesterol, Triglycerides, HDL)2023-03-17 06:31:58 Test Item Value Reference Range Interpretation Comments CHOL (test code = 7469857557) 178 mg/dL 120-200 HDL (test code = 3161880611) 56 mg/dL >=50 HDLC RATIO (test code = 2488689514) 3.2 <=4.5 TRIG (test code = 8601272625) 101 mg/dL 30-170 LDL CHOL (test code = 15763-2) 102 mg/dL <=160 VLDL (test code = 6623580390) 20 mg/dL 5-60 Lab Interpretation (test code = Normal 90484-6) [facility] [id number] 03:11:49 Test Item Value Reference Range Interpretation Comments TROPONIN I (test code = 0.008 ng/mL <=0.034 3182441325) KYLE (test code = KYLE) Reference (Normal) [...] biotin. Lab Interpretation Normal (test code = 43299-0) [facility] [id number] 21:39:24 Test Item Value Reference Range Interpretation Comments TROPONIN I (test code = 0.007 ng/mL <=0.034 3552547938) KYLE (test code = KYLE) Reference (Normal) [...] biotin. Lab Interpretation Normal (test code = 40156-5) [facility]MINAL [id number] 21:39:24 Test Item Value Reference Range Interpretation Comments NT-proBNP (test code = 3900 pg/mL <=125 H 29358-9) KYLE (test code = KYLE) Positive: Heart Failure Likely Lab Interpretation (test Abnormal code = 98039-5) [facility] HospitalD-[id number] 21:31:22 Test Item Value Reference Interpretation Comments Range D-DIMER (test code = 0.31 See_Comment [Autom ated 0540443404) message] The system which generated this result [...] diagnosis. Lab Interpretation Normal (test code = 93722-6) [facility] (10594)2023-[facility]-16 21:27:24 Test Item Value Reference Range Interpretation Comments NA (test code = 138 mmol/L 135-145 2683342932) K (test code = 3.8 mmol/L 3.5-5.0 5394286497) CL (test code = 103 mmol/L 98-108 1458914098) CO2 TOTAL (test code = 28 mmol/L 23-31 2880469805) AGAP (test code = 7 2-16 3437595346) BUN (test code = 26 mg/dL 7-23 H 5854464089) GLUCOSE (test code = 88 mg/dL 70-110 3566272461) CREATININE (test code = 0.97 mg/dL 0.50-1.04 5696016302) TOTAL BILI (test code = 0.7 mg/dL 0.1-1.5 4389316149) CALCIUM (test code = 8.7 mg/dL 8.6-10.6 0541814708) T PROTEIN (test code = 7.1 g/dL 6.3-8.2 5435804770) ALBUMIN (test code = 4.2 g/dL 3.5-5.0 8756166843) ALK PHOS (test code = 87 U/L 34-122 2722497964) ALTv (test code = 15 U/L 5-35 1742-6) AST(SGOT) (test code = 33 U/L 13-40 3311789141) eGFR (test code = 57.3 mL/min/1.73m2 5894283416) KYLE (test code = KYLE) Association of [...] tests). Lab Interpretation Abnormal (test code = 44208-4) [facility] WITH [id number] 21:07:01 Test Item Value Reference Range Interpretation [...] RDW-SD (test code = 49.2 fL 39.0-49.9 65645-8) RDW-CV (test code = 16.1 % 12.0-15.5 H 788-0) PLT (test code = 111 See_Comment L [Automated 777-3) message] The sy stem which generated this result transmitted reference range : 166 - 358 10*3/ ?L. The reference r abbey was not used to interpret this result as normal/abnormal . MPV (test code = 8.9 fL 9.5-12.9 L 89838-7) NRBC/100 WBC (test 0.0 See_Comment [Automat ed code = 5988963846) message] The system which generated this result transmitted reference range : 0.0 - 10.0 /100 WBCs. The refer ence range was not u sed to interpret th is result as normal/abnormal . NRBC x10^3 (test code See_Comment [Auto mated = [id number]) message] The s ystem which generated this result transmitted reference range : 10*3/?L. The reference range was not used to interpret this result as normal/abnormal . GRAN MAT (NEUT) % 62.2 % (test code = 770-8) IMM GRAN % (test code 1.20 % = 3264699858) LYMPH % (test code = 21.0 % 736-9) MONO % (test code = 10.0 % 5905-5) EOS % (test code = 5.1 % 713-8) BASO % (test code = 0.5 % 706-2) GRAN MAT x10^3(ANC) 2.55 10*3/uL 1.88-7.09 (test code = 9635395002) IMM GRAN x10^3 (test 0.05 10*3/uL 0.00-0.06 code = 7978064056) LYMPH x10^3 (test code 0.86 10*3/uL 1.32-3.29 L = 731-0) MONO x10^3 (test code 0.41 10*3/uL 0.33-0.92 = 742-7) EOS x10^3 (test code = 0.21 10*3/uL 0.03-0.39 711-2) BASO x10^3 (test code 0.01-0.07 = 704-7) Lab Interpretation Abnormal (test code = 17223-2) [facility] WITH [id number] 19:35:25 Test Item Value Reference Range Interpretation [...] (test code = 50.1 fL 39.0-49.9 H 25606-1) RDW-CV (test code = 15.7 % 12.0-15.5 H 788-0) PLT (test code = 112 See_Comment L [Automated 777-3) message] The sy stem which generated this result transmitted reference range : 166 - 358 10*3/ ?L. The reference r abbey was not used to interpret this result as normal/abnormal . MPV (test code = 9.7 fL 9.5-12.9 30997-4) NRBC/100 WBC (test 0.0 See_Comment [Automat ed code = 2290185751) message] The system which generated this result transmitted reference range : 0.0 - 10.0 /100 WBCs. The refer ence range was not u sed to interpret th is result as normal/abnormal . NRBC x10^3 (test code See_Comment [Auto mated = 7824377607) message] The s ystem which generated this result transmitted reference range : 10*3/?L. The reference range was not used to interpret this result as normal/abnormal . GRAN MAT (NEUT) % 72.1 % (test code = 770-8) IMM GRAN % (test code 0.20 % = 5546925156) LYMPH % (test code = 16.1 % 736-9) MONO % (test code = 10.3 % 5905-5) EOS % (test code = 1.1 % 713-8) BASO % (test code = 0.2 % 706-2) GRAN MAT x10^3(ANC) 3.14 10*3/uL 1.88-7.09 (test code = 0230265341) IMM GRAN x10^3 (test 0.00-0.06 code = 7859164401) LYMPH x10^3 (test code 0.70 10*3/uL 1.32-3.29 L = 731-0) MONO x10^3 (test code 0.45 10*3/uL 0.33-0.92 = 742-7) EOS x10^3 (test code = 0.05 10*3/uL 0.03-0.39 711-2) BASO x10^3 (test code 0.01-0.07 = 704-7) Lab Interpretation Abnormal (test code = 36817-4) [facility] 22:42:55 Test Item Value Reference Range Interpretation Comments NA (test code = 137 mmol/L 135-145 1773377862) K (test code = 3.2 mmol/L 3.5-5.0 L 0808160408) CL (test code = 100 mmol/L 98-108 1481535741) CO2 TOTAL (test code = 23 mmol/L 23-31 7626440002) AGAP (test code = 2-16 6003721281) BUN (test code = 41 mg/dL 7-23 H 1327334423) GLUCOSE (test code = 98 mg/dL 70-110 5638112456) CREATININE (test code = 1.55 mg/dL 0.50-1.04 H 9729448620) TOTAL BILI (test code = 0.8 mg/dL 0.1-1.5 3934010884) CALCIUM (test code = 8.3 mg/dL 8.6-10.6 L 7608462966) T PROTEIN (test code = 6.9 g/dL 6.3-8.2 6740333789) ALBUMIN (test code = 3.9 g/dL 3.5-5.0 0999148549) ALK PHOS (test code = 89 U/L 34-122 4929511215) ALTv (test code = 101 U/L 5-35 H 1742-6) AST(SGOT) (test code = 203 U/L 13-40 H 2158263486) eGFR (test code = mL/min/1.73m2 4959988011) KYLE (test code = KYLE) Association of [...] tests). Lab Interpretation Abnormal (test code = 88377-9) [facility] WITH [id number] 22:33:52 Test Item Value Reference Range Interpretation Comments WBC (test code = See_Comment L [Automated 1500-2) message] The sy stem which generated this result transmitted reference range : 4.30 - 11.10 10*3/?L. The reference range was not used to interpret this result as normal/abnormal . RBC (test code = See_Comment [Automated 291-8) message] The sy stem which generated this [...] RDW-SD (test code = 46.3 fL 39.0-49.9 61854-1) RDW-CV (test code = 13.5 % 12.0-15.5 788-0) PLT (test code = See_Comment L [Automated 777-3) message] The sy stem which generated this result transmitted reference range : 166 - 358 10*3/ ?L. The reference r abbey was not used to interpret this result as normal/abnormal . MPV (test code = 9.5 fL 9.5-12.9 36591-2) NRBC/100 WBC (test See_Comment [Automat ed code = 3563701082) message] The system which generated this result transmitted reference range : 0.0 - 10.0 /100 WBCs. The refer ence range was not u sed to interpret th is result as normal/abnormal . NRBC x10^3 (test code See_Comment [Auto mated = 9279111970) message] The s ystem which generated this result transmitted reference range : 10*3/?L. The reference range was not used to interpret this result as normal/abnormal . GRAN MAT (NEUT) % 58.3 % (test code = 770-8) IMM GRAN % (test code 0.80 % = 4072813434) LYMPH % (test code = 28.1 % 736-9) MONO % (test code = 12.0 % 5905-5) EOS % (test code = 0.5 % 713-8) BASO % (test code = 0.3 % 706-2) GRAN MAT x10^3(ANC) 2.29 10*3/uL 1.88-7.09 (test code = 2810757307) IMM GRAN x10^3 (test 0.03 10*3/uL 0.00-0.06 code = 3116519467) LYMPH x10^3 (test code 1.10 10*3/uL 1.32-3.29 L = 731-0) MONO x10^3 (test code 0.47 10*3/uL 0.33-0.92 = 742-7) EOS x10^3 (test code = 0.03-0.39 L 711-2) BASO x10^3 (test code 0.01-0.07 = 704-7) Lab Interpretation Abnormal (test code = 57137-1) [facility] METABOLIC PANEL (NA, K, CL, CO2, GLUCOSE, BUN, CREATININE, CA)2022-04-22 21:43:42 Test Item Value Reference Range Interpretation Comments NA (test code = 142 mmol/L 135-145 1881866651) K (test code = 3.5 mmol/L 3.5-5.0 7341570783) CL (test code = 106 mmol/L 98-108 3327721650) CO2 TOTAL (test code = 26 mmol/L 23-31 8194297791) AGAP (test code = 2-16 3405334478) BUN (test code = 29 mg/dL 7-23 H 0933242937) GLUCOSE (test code = 84 mg/dL 70-110 6334760737) CREATININE (test code = 1.16 mg/dL 0.50-1.04 H 8118182021) CALCIUM (test code = 8.2 mg/dL 8.6-10.6 L 5783881585) eGFR (test code = mL/min/1.73m2 4610329656) KYLE (test code = KYLE) Association of [...] tests). Lab Interpretation Abnormal (test code = 53824-8) [facility] WITH [id number] 21:33:01 Test Item Value Reference Range Interpretation [...] (test code = 50.7 fL 39.0-49.9 H 69823-5) RDW-CV (test code = 14.6 % 12.0-15.5 788-0) PLT (test code = See_Comment L [Automated 777-3) message] The sy stem which generated this result transmitted reference range : 166 - 358 10*3/ ?L. The reference r abbey was not used to interpret this result as normal/abnormal . MPV (test code = 8.8 fL 9.5-12.9 L 24990-8) NRBC/100 WBC (test See_Comment [Automat ed code = 3491541117) message] The system which generated this result transmitted reference range : 0.0 - 10.0 /100 WBCs. The refer ence range was not u sed to interpret th is result as normal/abnormal . NRBC x10^3 (test code See_Comment [Auto mated = 8714027002) message] The s ystem which generated this result transmitted reference range : 10*3/?L. The reference range was not used to interpret this result as normal/abnormal . GRAN MAT (NEUT) % 70.9 % (test code = 770-8) IMM GRAN % (test code 0.50 % = 3553374845) LYMPH % (test code = 17.4 % 736-9) MONO % (test code = 9.0 % 5905-5) EOS % (test code = 1.7 % 713-8) BASO % (test code = 0.5 % 706-2) GRAN MAT x10^3(ANC) 4.60 10*3/uL 1.88-7.09 (test code = 6734161278) IMM GRAN x10^3 (test 0.03 10*3/uL 0.00-0.06 code = 0358724346) LYMPH x10^3 (test code 1.13 10*3/uL 1.32-3.29 L = 731-0) MONO x10^3 (test code 0.58 10*3/uL 0.33-0.92 = 742-7) EOS x10^3 (test code = 0.11 10*3/uL 0.03-0.39 711-2) BASO x10^3 (test code 0.03 10*3/uL 0.01-0.07 = 704-7) Lab Interpretation Abnormal (test code = 81331-6) [facility] [id number] 06:01:07 Test Item Value Reference Range Interpretation Comments Blood Culture-Aerobic No organisms No growth Previo us (test code = 40096-1) isolated prelim inary verified result was Culture [...] Culture-Anaerobic isolated preliminar y (test code = 37621-0) verifi ed result was Culture In Progress [...] CDT Lab Interpretation Normal (test code = 77156-7) [facility] CULTURE [id number] 06:01:07 Test Item Value Reference Range Interpretation Comments Blood Culture-Aerobic No organisms No growth Previo us (test code = 01816-9) isolated prelim inary verified result was Culture [...] Culture-Anaerobic isolated preliminar y (test code = 01814-7) verifi ed result was Culture In Progress [...] CDT Lab Interpretation Normal (test code = 61968-2) [facility] CULTURE [id number] 06:01:07 Test Item Value Reference Range Interpretation Comments Blood Culture-Aerobic No organisms No growth Previo us (test code = 73338-0) isolated prelim inary verified result was Culture [...] Culture-Anaerobic isolated preliminar y (test code = 22382-7) verifi ed result was Culture In Progress [...] CDT Lab Interpretation Normal (test code = 86314-3) [facility] [id number] 10:49:10 Test Item Value Reference Range Interpretation Comments NT-proBNP (test code 2660 pg/mL See_Comment H [Autom ated = 6637657025) message] The system which generated this result transmitted reference range : <=125. The reference range was not used to interpret this result as normal/abnormal . KYLE (test code = KYLE) Biotin has been reported to cause a negative bias, interpret results relative to patient's use of biotin. Lab Interpretation Abnormal (test code = 34996-2) [facility] [id number] 10:49:10 Test Item Value Reference Range Interpretation Comments NT-proBNP (test code 2660 pg/mL See_Comment H [Autom ated = 7066723379) message] The system which generated this result transmitted reference range : <=125. The reference range was not used to interpret this result as normal/abnormal . KYLE (test code = KYLE) Biotin has been reported to cause a negative bias, interpret results relative to patient's use of biotin. Lab Interpretation Abnormal (test code = 50080-8) [facility] METABOLIC PANEL (NA, K, CL, CO2, GLUCOSE, BUN, CREATININE, CA)2022-02-15 10:44:07 Test Item Value Reference Range Interpretation Comments NA (test code = 134 mmol/L 135-145 L 2426963288) K (test code = 3.2 mmol/L 3.5-5 L 2164925798) CL (test code = 98 mmol/L 98-108 7497892131) CO2 TOTAL (test code = 27 mmol/L 23-31 4695367462) AGAP (test code = 2-16 9324494366) BUN (test code = 19 mg/dL 7-23 4174716847) GLUCOSE (test code = 102 mg/dL 70-110 6019284501) CREATININE (test code = 0.95 mg/dL 0.5-1.04 4835112364) CALCIUM (test code = 8.5 mg/dL 8.6-10.6 L 2720704922) eGFR (test code = mL/min/1.73m2 8549383605) KYLE (test code = KYLE) Association of [...] tests). Lab Interpretation Abnormal (test code = 30497-7[facility] Test Item Value Reference Range Interpretation Comments MAGNESIUM (test code = 2684953477) 1.8 mg/dL 1.7-2.4 Lab Interpretation (test code = Normal 45884-9[facility] 10:44[facility]07 Test Item Value Reference Range Interpretation Comments MAGNESIUM (test code = 1179759717) 1.8 mg/dL 1.7-2.4 Lab Interpretation (test code = Normal 70355-1) [facility] METABOLIC PANEL (NA, K, CL, CO2, GLUCOSE, BUN, CREATININE, CA)2022-02-15 10:44:07 Test Item Value Reference Range Interpretation Comments NA (test code = 134 mmol/L 135-145 L 5755711155) K (test code = 3.2 mmol/L 3.5-5.0 L 8239203959) CL (test code = 98 mmol/L 98-108 0578526299) CO2 TOTAL (test code = 27 mmol/L 23-31 2554497063) AGAP (test code = 2-16 7844178930) BUN (test code = 19 mg/dL 7-23 8492934176) GLUCOSE (test code = 102 mg/dL 70-110 7845911003) CREATININE (test code = 0.95 mg/dL 0.50-1.04 9241462911) CALCIUM (test code = 8.5 mg/dL 8.6-10.6 L 4461658287) eGFR (test code = mL/min/1.73m2 4053635350) KYLE (test code = KYLE) Association of [...] tests). Lab Interpretation Abnormal (test code = 86328-3) [facility] WITH [id number] 10:12:06 Test Item Value Reference Range Interpretation [...] RDW-SD (test code = 47.8 fL 39-49.9 99181-0) RDW-CV (test code = 15.2 % 12-15.5 788-0) PLT (test code = See_Comment L [Automated 777-3) message] The sy stem which generated this result transmitted reference range : 166 - 358 10*3/ ?L. The reference r abbey was not used to interpret this result as normal/abnormal . MPV (test code = 8.9 fL 9.5-12.9 L 53454-4) NRBC/100 WBC (test See_Comment [Automat ed code = 6878026481) message] The system which generated this result transmitted reference range : 0.0 - 10.0 /100 WBCs. The refer ence range was not u sed to interpret th is result as normal/abnormal . NRBC x10^3 (test code See_Comment [Auto mated = 4927120120) message] The s ystem which generated this result transmitted reference range : 10*3/?L. The reference range was not used to interpret this result as normal/abnormal . GRAN MAT (NEUT) % 65.9 % (test code = 770-8) IMM GRAN % (test code 0.30 % = 2089589476) LYMPH % (test code = 21.0 % 736-9) MONO % (test code = 10.1 % 5905-5) EOS % (test code = 2.4 % 713-8) BASO % (test code = 0.3 % 706-2) GRAN MAT x10^3(ANC) 2.49 10*3/uL 1.88-7.09 (test code = 2204566439) IMM GRAN x10^3 (test 0-0.06 code = 8954285827) LYMPH x10^3 (test code 0.79 10*3/uL 1.32-3.29 L = 731-0) MONO x10^3 (test code 0.38 10*3/uL 0.33-0.92 = 742-7) EOS x10^3 (test code = 0.09 10*3/uL 0.03-0.39 711-2) BASO x10^3 (test code 0.01-0.07 = 704-7) Lab Interpretation Abnormal (test code = 05637-1) [facility] WITH [id number] 10:12:06 Test Item Value Reference Range Interpretation [...] RDW-SD (test code = 47.8 fL 39.0-49.9 18264-4) RDW-CV (test code = 15.2 % 12.0-15.5 788-0) PLT (test code = See_Comment L [Automated 777-3) message] The sy stem which generated this result transmitted reference range : 166 - 358 10*3/ ?L. The reference r abbey was not used to interpret this result as normal/abnormal . MPV (test code = 8.9 fL 9.5-12.9 L 75918-5) NRBC/100 WBC (test See_Comment [Automat ed code = 1665047041) message] The system which generated this result transmitted reference range : 0.0 - 10.0 /100 WBCs. The refer ence range was not u sed to interpret th is result as normal/abnormal . NRBC x10^3 (test code See_Comment [Auto mated = 2392882955) message] The s ystem which generated this result transmitted reference range : 10*3/?L. The reference range was not used to interpret this result as normal/abnormal . GRAN MAT (NEUT) % 65.9 % (test code = 770-8) IMM GRAN % (test code 0.30 % = 3896738244) LYMPH % (test code = 21.0 % 736-9) MONO % (test code = 10.1 % 5905-5) EOS % (test code = 2.4 % 713-8) BASO % (test code = 0.3 % 706-2) GRAN MAT x10^3(ANC) 2.49 10*3/uL 1.88-7.09 (test code = 8423021528) IMM GRAN x10^3 (test 0.00-0.06 code = 7778688191) LYMPH x10^3 (test code 0.79 10*3/uL 1.32-3.29 L = 731-0) MONO x10^3 (test code 0.38 10*3/uL 0.33-0.92 = 742-7) EOS x10^3 (test code = 0.09 10*3/uL 0.03-0.39 711-2) BASO x10^3 (test code 0.01-0.07 = 704-7) Lab Interpretation Abnormal (test code = 74789-8) [facility] WITH [id number] 11:18:28 Test Item Value Reference Range Interpretation [...] RDW-SD (test code = 49.5 fL 39-49.9 10078-9) RDW-CV (test code = 15.5 % 12-15.5 788-0) PLT (test code = See_Comment L [Automated 777-3) message] The sy stem which generated this result transmitted reference range : 166 - 358 10*3/ ?L. The reference r abbey was not used to interpret this result as normal/abnormal . MPV (test code = 11.4 fL 9.5-12.9 00102-7) IPF % (test code = 8.7 % 1.3-7.7 H Platelet count 9197155162) measured by fluorescence method. NRBC/100 WBC (test See_Comment [Automat ed code = 6764199639) message] The system which generated this result transmitted reference range : 0.0 - 10.0 /100 WBCs. The refer ence range was not u sed to interpret th is result as normal/abnormal . NRBC x10^3 (test code See_Comment [Auto mated = 6032814720) message] The s ystem which generated this result transmitted reference range : 10*3/?L. The reference range was not used to interpret this result as normal/abnormal . GRAN MAT (NEUT) % 62.0 % (test code = 770-8) IMM GRAN % (test code 0.80 % = 5387220338) LYMPH % (test code = 22.2 % 736-9) MONO % (test code = 9.6 % 5905-5) EOS % (test code = 5.1 % 713-8) BASO % (test code = 0.3 % 706-2) GRAN MAT x10^3(ANC) 2.21 10*3/uL 1.88-7.09 (test code = 2906397789) IMM GRAN x10^3 (test 0.03 10*3/uL 0-0.06 code = 4879179633) LYMPH x10^3 (test code 0.79 10*3/uL 1.32-3.29 L = 731-0) MONO x10^3 (test code 0.34 10*3/uL 0.33-0.92 = 742-7) EOS x10^3 (test code = 0.18 10*3/uL 0.03-0.39 711-2) BASO x10^3 (test code 0.01-0.07 = 704-7) POLYCHROMASIA (test 2+ See_Comment [Automa arpit code = 26634-2) message] The system which generated this result [...] . Lab Interpretation Abnormal (test code = 31248-5) [facility] (NA, K, CL, CO2, GLUCOSE, BUN, CREATININE, CA)2022-02-13 10:39:07 Test Item Value Reference Range Interpretation Comments NA (test code = 136 mmol/L 135-145 6663899462) K (test code = 4.1 mmol/L 3.5-5 8241021058) CL (test code = 102 mmol/L 98-108 1316153692) CO2 TOTAL (test code = 27 mmol/L 23-31 3578453859) AGAP (test code = 2-16 3736819572) BUN (test code = 22 mg/dL 7-23 4708854510) GLUCOSE (test code = 94 mg/dL 70-110 5197131697) CREATININE (test code = 0.94 mg/dL 0.5-1.04 9748864870) CALCIUM (test code = 8.1 mg/dL 8.6-10.6 L 3344767863) eGFR (test code = mL/min/1.73m2 7393555529) KYLE (test code = KYLE) Association of [...] tests). Lab Interpretation Abnormal (test code = 68559-8) [facility] 01:50:10 Test Item Value Reference Range Interpretation Comments Height (test code = in 9642734448) Weight (test code = lbs 3344036399) Systolic BP (test code mmHg = 4903411114) Diastolic BP (test code mmHg = 6087943823) Heart Rate (test code = bpm 4504147250) BSA (test code = 1.85 m2 0138893059) IVS (test code = 1.22 cm 4064703421) Interventricular Septum 1.22 cm Diastolic Thickness by 2D (test code = 5872737) LVIDD (test code = 5.00 cm 2616986818) Left Ventricular End 117.9 mL Diastolic Volume by Teichholz Method (test code = 2995557) LVPWD (test code = 1.22 cm 1820641600) PW (test code = 1.22 cm 0.6-1.3 5922256199) EF(Teich) (test code = 74.60 % 3593020529) LVIDS (test code = 2.80 cm 3325875616) Left Ventricular End 29.9 mL Systolic Volume by Teichholz Method (test code = 8432628) FS (test code = 44 % 4334344024) EF - 2D (test code = 74.60 % 52898548) LVOT diameter (test 2.16 cm code = 1346833864) LVOT area (test code = 3.70 cm2 9116619541) Ao root diam (test code 3.40 cm = 8626851409) Aortic root (test code 3.4 cm = 0348304790) Ao root annulus (test 3.4 cm code = 4805579596) LA size (test code = 3.4 cm 4404093352) TR Peak Spencer (test code 330.0 cm/s = 8672777809) Triscuspid Valve mmHg Regurgitation Peak Gradient (test code = 7433346891) PV REGURGITATION PEAK mmHg GRADIENT (test code = 0932919352) PI dec slope (test code 137.20 cm/s2 = 0055111323) LAV(MOD-sp4) (test code 102.90 mL = 1529813222) MV Peak E Spencer (test 84.1 cm/s code = 7514263332) MV Peak A Spencer (test 40.1 cm/s code = 4950985231) E/A ratio (test code = ratio 1037992940) MV valve area p 1/2 3.70 cm2 method (test code = 8300514219) MV dec slope (test code 413.00 cm/s2 = 2409328225) MV P1/2t max spencer (test 83.70 cm/s code = 0013608255) MV Prop V (test code = 41.80 cm/s 8915784409) Tapse (test code = 1.83 cm 8946028304) LVOT stroke volume 96.90 cm3 (test code = 4869653659) LVOT peak spencer (test 125.5 cm/s code = 0109097345) LVOT mn grad (test code mmHg = 0791688636) AV LVOT peak gradient mmHg (test code = 2855112254) LVOT peak VTI (test 26.4 cm code = 5214734467) LV V1 mean (test code = 78.10 cm/s 3016133311) Aortic valve mean 103.7 cm/s velocity (test code = 7373409174) Ao peak spencer (test code 165.6 cm/s = 2571049267) Ao VTI (test code = 37.2 cm 8519956824) AV area by cont VTI 2.6 cm2 (test code = 3347020076) AV area peak spencer (test 2.8 cm2 code = 7135221558) Ao max PG (test code = 11.00 mm[Hg] 5419233460) AV peak gradient (test mmHg code = 1457820914) AV valve area (test 2.60 cm2 code = 4957896920) AV mean gradient (test mmHg code = 9862001604) LA Volume Index (BP) 55.2 mL/m2 (test code = 1415608952) LA volume (BP) (test 102.1 mL code = 1156782554) LAV(MOD-sp2) (test code 86.10 mL = 8095496664) A2C EF (test code = 61.20 % 0726161094) EF(sp2-el) (test code = 61.60 % 2502082085) SV(MOD-sp2) (test code 47.10 mL = 1404234922) LV Diastolic Volume 70.7 mL (BP) (test code = 8655742918) A4C EF (test code = 53.00 % 1851811446) EF(MOD-bp) (test code = 56.70 % 0111767965) EF(sp4-el) (test code = 53.90 % 9937941029) LV Systolic Volume (BP) 30.6 mL (test code = 9120573135) SV(MOD-bp) (test code = 40.10 mL 2780223060) SV(MOD-sp4) (test code 32.40 mL = 7265470727) SV(sp4-el) (test code = 33.10 mL 7005562598) EF (test code = 3361344679) Left Ventricular Stroke 40.1 mL Volume by 2-D Biplane-MOD (test code = 7739912) LV Diastolic Volume 38.2 mL/m2 Index (BP) (test code = 5616179139) LV Systolic Volume 16.5 mL/m2 Index (BP) (test code = 8506678790) Radiology Study observation (narrative) (test code = 93136-3) KYLE (test code = KYLE) ?Left?Ventricle: Left [...] left ventricular wall motion is normal. [id number] 05:[facility]01 Test Item Value Reference Interpretation Comments Range TROPONIN I (test See_Comment [Automated code = 4067381473) message] The system which generated this result [...] biotin. Lab Interpretation Normal (test code = 77084-4) [facility] [id number] 05:41:40 Test Item Value Reference Range Interpretation Comments NT-proBNP (test code 4250 pg/mL See_Comment H [Autom ated = 5319224189) message] The system which generated this result transmitted reference range : <=125. The reference range was not used to interpret this result as normal/abnormal . KYLE (test code = KYLE) Biotin has been reported to cause a negative bias, interpret results relative to patient's use of biotin. Lab Interpretation Abnormal (test code = 46406-6) [facility] [id number] 05:35:21 Test Item Value Reference Range Interpretation [...] seconds. Lab Interpretation Normal (test code = 77032-3) [facility] [id number] 05:35:21 Test Item Value Reference Range Interpretation [...] seconds. Lab Interpretation Normal (test code = 00205-4) [facility]PROT[facility] / [id number] 05:33:21 Test Item Value Reference Range Interpretation [...] tions. Lab Interpretation (test Normal code = 96684-3) [facility]OL[facility] (20020)2022-02-11 05:33:21 Test Item Value Reference Range Interpretation Comments NA (test code = 137 mmol/L 135-145 8021289729) K (test code = 4.3 mmol/L 3.5-5 2309776636) CL (test code = 103 mmol/L 98-108 3206761406) CO2 TOTAL (test code = 25 mmol/L 23-31 2548184507) AGAP (test code = 2-16 0410133141) BUN (test code = 19 mg/dL 7-23 6035571806) GLUCOSE (test code = 120 mg/dL 70-110 H 4452520405) CREATININE (test code = 1.15 mg/dL 0.5-1.04 H 0251993724) TOTAL BILI (test code = 0.9 mg/dL 0.1-1.3 7227147791) CALCIUM (test code = 8.9 mg/dL 8.6-10.6 5437606495) T PROTEIN (test code = 6.6 g/dL 6.3-8.2 3254853828) ALBUMIN (test code = 4.0 g/dL 3.5-5 3469987068) ALK PHOS (test code = 73 U/L 34-122 2683175929) ALTv (test code = 18 U/L 1742-6) AST(SGOT) (test code = 31 U/L 13-40 4640404596) eGFR (test code = mL/min/1.73m2 7937789963) KYLE (test code = KYLE) Association of [...] tests). Lab Interpretation Abnormal (test code = 81782-5) [facility]. METABOLIC PANEL (24147)2022-02-11 05:33:21 Test Item Value Reference Range Interpretation Comments NA (test code = 137 mmol/L 135-145 5367538462) K (test code = 4.3 mmol/L 3.5-5.0 2120249379) CL (test code = 103 mmol/L 98-108 9406426850) CO2 TOTAL (test code = 25 mmol/L 23-31 7132734320) AGAP (test code = 2-16 4578213523) BUN (test code = 19 mg/dL 7-23 5011840181) GLUCOSE (test code = 120 mg/dL 70-110 H 9807629983) CREATININE (test code = 1.15 mg/dL 0.50-1.04 H 8876710625) TOTAL BILI (test code = 0.9 mg/dL 0.1-1.7 7166880766) CALCIUM (test code = 8.9 mg/dL 8.6-10.6 6477773156) T PROTEIN (test code = 6.6 g/dL 6.3-8.2 7442353002) ALBUMIN (test code = 4.0 g/dL 3.5-5.0 1923460621) ALK PHOS (test code = 73 U/L 34-122 8434893040) ALTv (test code = 18 U/L 5-35 2-6) AST(SGOT) (test code = 31 U/L 13-40 0480985839) eGFR (test code = mL/min/1.73m2 8944090864) KYLE (test code = KYLE) Association of [...] tests). Lab Interpretation Abnormal (test code = 24166-3) [id number] [facility]:33:21 Test Item Value Reference Range Interpretation [...] tions. Lab Interpretation (test Normal code = 86880-9) [facility] [id number] 05:14:37 Test Item Value Reference Range Interpretation [...] RDW-SD (test code = 47.9 fL 39-49.9 07507-7) RDW-CV (test code = 14.9 % 12-15.5 788-0) PLT (test code = See_Comment L [Automated 777-3) message] The sy stem which generated this result transmitted reference range : 166 - 358 10*3/ ?L. The reference r abbey was not used to interpret this result as normal/abnormal . MPV (test code = 9.1 fL 9.5-12.9 L 01046-4) NRBC/100 WBC (test See_Comment [Automat ed code = 3729985870) message] The system which generated this result transmitted reference range : 0.0 - 10.0 /100 WBCs. The refer ence range was not u sed to interpret th is result as normal/abnormal . NRBC x10^3 (test code See_Comment [Auto mated = 3518970328) message] The s ystem which generated this result transmitted reference range : 10*3/?L. The reference range was not used to interpret this result as normal/abnormal . GRAN MAT (NEUT) % 78.5 % (test code = 770-8) IMM GRAN % (test code 0.20 % = 9052303609) LYMPH % (test code = 11.6 % 736-9) MONO % (test code = 8.4 % 5905-5) EOS % (test code = 1.1 % 713-8) BASO % (test code = 0.2 % 706-2) GRAN MAT x10^3(ANC) 3.45 10*3/uL 1.88-7.09 (test code = 8222854167) IMM GRAN x10^3 (test 0-0.06 code = 9125013006) LYMPH x10^3 (test code 0.51 10*3/uL 1.32-3.29 L = 731-0) MONO x10^3 (test code 0.37 10*3/uL 0.33-0.92 = 742-7) EOS x10^3 (test code = 0.05 10*3/uL 0.03-0.39 711-2) BASO x10^3 (test code 0.01-0.07 = 704-7) Lab Interpretation Abnormal (test code = 18743-8) [facility] Coronavirus 2019 Vgloenu3597-43-24 18:08:00 Test Item Value Reference Range Interpretation [...] det ection of nucleic acids f rom hfxFAIM-DbY-0 v irus and diagnosis of SA RS-CoV-2 virusinfection. It is an Emergency Use Authorization ( EUA) testauthorized by the U.S. FDA. BASIC METABOLIC BDYWU5085-62-88 09:37:00 Test Item Value Reference Range Interpretation [...] = 9.0 mg/dL 8.0-10.5 N CA) PROTHROMBIN KFPL9883-04-16 09:32:00 Test Item Value Reference Range Interpretation [...] (to prevent recurrent infar ct). 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 [facility] : 1955 Sex: F FAX: Carmenza Kelly DO [phone] [place]: St: ADM FAX: Mike Scales MD [phone] FAX: Bahman Chopra [phone] Name: MARJAN FLEMING [facility] : 1955 Age/S: 66/F [address] [place] [address] Unit #: [id number] Loc: [place] [address] Phys: Bahman Chopra [facility] Acct: [id number] Dis Date: Status: ADM IN PHONE #: [phone] Exam Date: 06/17/2021 1320 FAX #: [phone] Reason: WATCHMAN EXA MS: CPT CODE: [id number] XR CHEST 1 V 74596 PROCEDURE INFORMATION: Exam: XR Chest Exam date [...] Chopra Technologist: RT Taylor(R) Trnscrd Date/Time/By: 06/17/2021 (6230) : By: IselaKWL Orig Print D/T: S: 06/17/2021 (5204) PAGE 1 Signed ReportCOVID 19 Asymptomatic IH [id number] 12:29:00 Test Item Value Reference Range Interpretation [...] high or waivedcomplexit y tests. BASIC METABOLIC [id number] 11:37:00 Test Item Value Reference Range Interpretation [...] code = 9.0 mg/dL 8.0-10.5 N CA) CWRGFFWJEC4658-95-61 11:37:00 Test Item Value Reference Range Interpretation Comments PREALBUMIN (test code = PREALB) 24.3 mg/dL 16.0-40.0 N PROTHROMBIN [id number] 11:03:00 Test Item Value Reference Range Interpretation [...] (to prevent recurrent infar ct). CBC W/AUTO [id number] 10:59:00 Test Item Value Reference Range Interpretation [...] 0.0-0.1 N NRBC#) - XR CHEST 2 [id number] 00:00:[address] : 1955 Sex: F FAX: Carmenza Kelly [phone] [place]: St: PRE FAX: Mike Scales MD [phone] Name: MARJAN FLEMING [facility] [place] : 1955 Age/S: 66/F [address] [place] [address] Unit #: [id number] Loc: [place], [place] [address]Otvr: Mike Lund MD Acct: [id number] Dis Date: Status: PRE SDC PHONE #: [phone] Exam Date: 06/16/2021 1120 FAX #: [phone] Reason: PREOP EXAMS: CPT CODE: [id number] XR CHEST 2 V 99743 PROCEDURE INFORMATION: Exam: XR Chest Exam date [...] By: [email or web address] Orig Print D/T: S: 06/16/2021 (8159) PAGE 1 Signed ReportGastrointestinal vepjf0747-49-55 04:35:05 Test Item Value Reference Interpretation Comments [...] Rotavirus PCR (test Not Detected code = 9853202) Salmonella PCR (test Not Detected code = [...] Detected (test code = 7124) [facility] rpvgqvr3359-12-84 19:30:47 Test Item Value Reference Range Interpretation Comments Case number (test [id number] code = 5882340) Surgical pathology See link below for PDF report (test code = Lab Report 2255) Result status (test This is Supplemental code = 9658515) Report for [id number] [facility]2021-04-09 16:31:00 Test Item Value Reference Range Interpretation Comments POC Activated Clotting Time (test code 153 s = POC Activated Clotting Time) [facility] ChildrenRqteubxALGCOKXNXA3016-09-24 16:31:00 Test Item Value Reference Range Interpretation Comments POC Activated Clotting Time (test code 153 s = POC Activated Clotting Time) [facility] ChildrenUxguuriJTAPFGVERY0577-97-31 16:31:00 Test Item Value Reference Range Interpretation Comments POC Activated Clotting Time (test code 153 s = POC Activated Clotting Time) [facility] ChildrenNgxbmnyWOYFREAKRF6840-62-11 16:31:00 Test Item Value Reference Range Interpretation Comments POC Activated Clotting Time (test code 153 s = POC Activated Clotting Time) [facility] ChildrenXfhljijQVFPPITGAD7354-09-16 16:31:00 Test Item Value Reference Range Interpretation Comments POC Activated Clotting Time (test code 153 s = POC Activated Clotting Time) [facility] ChildrenYtzxrrjFXQVQCKJAQ0196-02-37 16:31:00 Test Item Value Reference Range Interpretation Comments POC Activated Clotting Time (test code 153 s = POC Activated Clotting Time) [facility] ChildrenCxriwbzYVQLUNNFRR4974-04-57 16:31:00 Test Item Value Reference Range Interpretation Comments POC Activated Clotting Time (test code 153 s = POC Activated Clotting Time) [facility] ChildrenLfiwcojZBYAPBMJTY0600-96-56 14:37:00 Test Item Value Reference Range Interpretation Comments POC Activated Clotting Time (test code 454 s = POC Activated Clotting Time) [facility] ChildrenJwhzgirCYKLSZOYVS9125-48-82 14:37:00 Test Item Value Reference Range Interpretation Comments POC Activated Clotting Time (test code 454 s = POC Activated Clotting Time) [facility] ChildrenBbiweulRRDNNOKSYT3849-37-33 14:37:00 Test Item Value Reference Range Interpretation Comments POC Activated Clotting Time (test code 454 s = POC Activated Clotting Time) [facility] ChildrenGwenawiKYLRQWSWKI0489-89-08 14:37:00 Test Item Value Reference Range Interpretation Comments POC Activated Clotting Time (test code 454 s = POC Activated Clotting Time) [facility] ChildrenPgtkiuiPSEKFJBBOP5627-63-62 14:37:00 Test Item Value Reference Range Interpretation Comments POC Activated Clotting Time (test code 454 s = POC Activated Clotting Time) [facility] ChildrenWsjrplqKXECCQCIVC7687-46-95 14:37:00 Test Item Value Reference Range Interpretation Comments POC Activated Clotting Time (test code 454 s = POC Activated Clotting Time) [facility] ChildrenFwejgnvFSLOQVQBXR0871-47-12 14:37:00 Test Item Value Reference Range Interpretation Comments POC Activated Clotting Time (test code 454 s = POC Activated Clotting Time) [facility] ChildrenFvzxxjsSXJOFUHMQF8095-16-73 14:13:00 Test Item Value Reference Range Interpretation Comments POC Activated Clotting Time (test code 354 s = POC Activated Clotting Time) [facility] ChildrenSdvyhpmSFDQZPCISQ0107-39-25 14:13:00 Test Item Value Reference Range Interpretation Comments POC Activated Clotting Time (test code 354 s = POC Activated Clotting Time) [facility] ChildrenKklgzcxGGQOQGGLZI1620-88-58 14:13:00 Test Item Value Reference Range Interpretation Comments POC Activated Clotting Time (test code 354 s = POC Activated Clotting Time) [facility] ChildrenKtmhgpxKPVHTZFBLL4191-38-81 14:13:00 Test Item Value Reference Range Interpretation Comments POC Activated Clotting Time (test code 354 s = POC Activated Clotting Time) [facility] ChildrenImztcgeQCHOOHCFZK3076-28-90 14:13:00 Test Item Value Reference Range Interpretation Comments POC Activated Clotting Time (test code 354 s = POC Activated Clotting Time) [facility] ChildrenQdsutxnTLKCODNCRG6531-73-81 14:13:00 Test Item Value Reference Range Interpretation Comments POC Activated Clotting Time (test code 354 s = POC Activated Clotting Time) [facility] ChildrenKpwwlvfJDLPQHBYXJ4643-28-26 14:13:00 Test Item Value Reference Range Interpretation Comments POC Activated Clotting Time (test code 354 s = POC Activated Clotting Time) [facility] NYQSBOQ1847-05-58 10:37:00Negative (4/9/21 5:37 AM) [facility] WYYHZ4846-92-65 10:37:38363Mqyciuqy HermannCHEM PANEL 2020-08-29 10:37:0028[facility]annCHE[facility] WWTZY5386-57-94 10:37:001.01[facility]CHE[facility] JAVRK3788-77-12 10:37:01350Yhkhgtwl [facility] YBBAI3362-97-50 10:37:003.8[facility]annCHE[facility] TEYVZ8255-45-54 10:37:55542Tgufwwuv [facility]annCHE[facility] RERNY9775-82-65 10:37:0028[facility]annCHE[facility] WLTHQ6157-22-68 10:37:009.8 [facility] VEMGR2945-70-62 10:37:0011.8[facility]annCHEM PANEL 2020-08-29 10:37:0059[facility]annCHEM UYLYW5129-60-32 10:37:002.9[facility] LuwrwwrVWLTRYYVSM2929-58-94 10:37:006.8[facility] LmcgshaTEIGPQWQPW6719-74-61 10:37:004.47[facility] XcwubynXFFUNKIBPK1305-98-21 10:37:0010.6[facility] [place] SDHIOPSOSC8928-52-54 10:37:0034.0[facility] WvsdqvgMVKOFEZWXU3285-48-53 10:37:00 76.1[facility] UhzjravICKSLRJEWU3707-76-60 10:37:00 Test Item Value Reference Range Interpretation Comments MCH (test code = MCH) 23.8 pg 27.0-31.0 [facility] WxwnlygTYRCYDAMDQ9648-69-54 10:37:0031.3[facility]annHEMATOLOGY 2020-08-29 10:37:0018.2[facility] WapjlriHAJZDSNSJL7131-07-31 10:37:21995Kdsxnsow TpmxkvqUIDWRXAVBB8467-74-82 10:37:007.5[facility] OuxbzkxIZFMRRDCQU9242-94-55 10:37:00 Test Item Value Reference Range Interpretation Comments PT (test code = PT) 12.8 s 12.0-14.7 [facility] PalwbyzAQZYIBMBRW6107-62-40 10:37:00 Test Item Value Reference Range Interpretation Comments INR (test code = INR) 0.97 1 0.85-1.17 [facility] HwwajmvQWLNOEXFSU9824-66-75 10:37:00 Test Item Value Reference Range Interpretation Comments PTT (test code = PTT) 25.0 s 22.9-35.8 [facility] CogbjwbXIJJIOXLIJ1974-67-93 10:37:0070.5[facility]annHEMATOLOGY 2020-08-29 10:37:0018.8[facility] EivodwuKOYMHOCTYS5623-00-89 10:37:009.5[facility] KzlxbjyNFJWJJNDFR8514-20-54 10:37:000.9[facility] NilysqcOCJNFGMVNB2461-94-62 10:37:000.3[facility] NidyjfyQKTITXVQTY7956-12-53 10:37:004.8[facility] [place] IMUSXVNOEM1390-67-07 10:37:001.3[facility] HaygaouENJJJJERJP9875-44-71 10:37:000.6 [facility] HnffbleVIOHCZVHIE9389-26-71 10:37:000.1[facility]annHEMATOLOGY 2020-08-29 10:37:001+ *ABN*(08/29/20 5:37 AM)[facility] HqaienxOIQMBGHRDE9106-88-37 10:37:00Not Detected (08/29/20 5:37 AM)[facility] HermannBLOOD BANK RESULTS 2020-08-29 10:37:00Negative (08/29/20 5:37 AM)[facility]annCHE[facility] VABXS1689-13-80 10:37:03612Mlonjrcd HermannCHEM LOLJY4597-75-13 10:37:0028[facility]annCHEM CEFOE7960-66-06 10:37:001.01[facility]annCHE[facility] OXZKL9254-25-43 10:37:99737 [facility] ATTUB8400-25-96 10:37:003.8[facility]annCHEM PANEL 2020-08-29 10:37:17118Ufpiudwu [facility]annCHEM ZNICM6460-16-52 10:37:0028[facility]annCHE[facility] HKIEX6504-02-79 10:37:009.8[facility]annCHE[facility] EYCTT7571-21-81 10:37:0011.8[facility]annCHE[facility] EBIAP8555-30-05 10:37:0059[facility]annCHE[facility] PXPDH0293-16-15 10:37:002.9[facility] OeusrvnAPTDTGLWPN4040-41-37 10:37:006.8 [facility] TmsnmhoSDUXTRLMUK8531-18-34 10:37:004.47[facility]annHEMATOLOGY 2020-08-29 10:37:0010.6[facility] HenpxqjEKIUFJKOBW8615-49-25 10:37:0034.0[facility] QmqifgmUAXXWDALRL6886-98-46 10:37:0076.1[facility] GtcyhmbDMTCMYODFG4788-00-58 10:37:00 Test Item Value Reference Range Interpretation Comments MCH (test code = MCH) 23.8 pg 27.0-31.0 [facility] JxqulqqFGAYPITCTO9690-77-48 10:37:0031.3[facility]annHEMATOLOGY 2020-08-29 10:37:0018.2[facility] ZtzuarqWIQKRZBXWT5942-49-86 10:37:78077Ketmppdo ByichgyCUWBMHHGPC1666-89-96 10:37:007.5[facility] YcvycfbTFMOKRIWFI3824-27-37 10:37:00 Test Item Value Reference Range Interpretation Comments PT (test code = PT) 12.8 s 12.0-14.7 [facility] WjmltmrZUOURKDMJJ0033-16-06 10:37:00 Test Item Value Reference Range Interpretation Comments INR (test code = INR) 0.97 1 0.85-1.17 [facility] EsvjvkkBAANKJOFOS1863-23-86 10:37:00 Test Item Value Reference Range Interpretation Comments PTT (test code = PTT) 25.0 s 22.9-35.8 [facility] NlkaqszVPLVGSJMGS3376-89-55 10:37:0070.5[facility]annHEMATOLOGY 2020-08-29 10:37:0018.8[facility] GtujlffAIKZRLQLHJ8191-75-55 10:37:009.5[facility] EuugtvvIBTDXDPJJK5925-58-25 10:37:000.9[facility] QgxkyndYSEAYZLGOD7790-72-47 10:37:000.3[facility] JuwiztlPGBFTTSKJW1279-27-75 10:37:004.8[facility] FDNBKYMQIU9302-43-20 10:37:001.3[facility] LnsfgotZKEEZFZAZY7057-01-62 10:37:000.6 [facility] VzyuqzdLIKYTJBELD5269-66-67 10:37:000.1[facility]annHEMATOLOGY 2020-08-29 10:37:001+ *ABN*(08/29/20 5:37 AM)[facility] DgdyqjzHRGVYJQMQK8151-06-49 10:37:00Not Detected (08/29/20 5:37 AM)[facility]annBLOOD BANK RESULTS 2020-08-29 10:37:00Negative (08/29/20 5:37 AM)[facility]annCHE[facility] SQCXR1887-05-72 10:37:31982Zqnmhpsx [facility]annCHEM BJFNB3486-80-22 10:37:0028[facility]annCHE[facility] DQTRU6481-57-98 10:37:001.01[facility]annCHE[facility] BXDXZ0930-90-38 10:37:00467 [facility]CHE[facility] FYFBX3233-78-54 10:37:003.8[facility]annCHEM PANEL 2020-08-29 10:37:79395Uebabfwb [facility]annCHEM DMIEQ7512-66-31 10:37:0028[facility]annCHEM ASWSO1298-39-97 10:37:009.8[facility]annCHEM IJZYQ1945-13-85 10:37:0011.8[facility]annCHEM WFVGI9086-00-08 10:37:0059[facility]annCHEM PLCEC9629-85-45 10:37:002.9[facility] IekfwfnENASXPUQLD1954-05-13 10:37:006.8 [facility] WgsinumJUOUCCNZQK0215-55-16 10:37:004.47[facility]annHEMATOLOGY 2020-08-29 10:37:0010.6[facility] OmbbraaQKLRXUQLKQ7025-28-72 10:37:0034.0[facility] FuzhdhiCBMYAMFDFN4820-04-74 10:37:0076.1[facility] NvafaepSKUDLYQZAN4245-65-68 10:37:00 Test Item Value Reference Range Interpretation Comments MCH (test code = MCH) 23.8 pg 27.0-31.0 [facility] HsbnvwkKBJDLPORYB2360-25-40 10:37:0031.3[facility]annHEMATOLOGY 2020-08-29 10:37:0018.2[facility] UjifavfCXEBECEJEE7344-70-04 10:37:62770Cnwxggzb QwztsdrRWSVKDKIJM9709-11-52 10:37:007.5[facility] CaaecyaUCQZPALRBY2733-47-06 10:37:00 Test Item Value Reference Range Interpretation Comments PT (test code = PT) 12.8 s 12.0-14.7 [facility] IdigxnoCBZFMMQEZR4760-97-11 10:37:00 Test Item Value Reference Range Interpretation Comments INR (test code = INR) 0.97 1 0.85-1.17 [facility] LlnnavlEVPSGIYKTI9488-98-04 10:37:00 Test Item Value Reference Range Interpretation Comments PTT (test code = PTT) 25.0 s 22.9-35.8 [facility] OebqzvqXKCKQPPHUO1508-55-07 10:37:0070.5[facility]annHEMATOLOGY 2020-08-29 10:37:0018.8[facility] AqkqdcmRUAIFRBTZB5752-30-62 10:37:009.5[facility] TtnvmqvYIIYBHUVYY7067-19-20 10:37:000.9[facility] IdzsscyZTJLPEKDXR7062-70-82 10:37:000.3[facility] OslrpphRZANSPIIYC0359-56-21 10:37:004.8[facility] [place] PHOLNEPNPI3654-02-47 10:37:001.3[facility] OhvextxPJPTQDOMFR8737-62-78 10:37:000.6 [facility] PtzoiegWEFVEJDLVF4987-48-85 10:37:000.1[facility]annHEMATOLOGY 2020-08-29 10:37:001+ *ABN*(08/29/20 5:37 AM)[facility] FnwkeujZHUNPXNESP2856-48-45 10:37:00Not Detected (08/29/20 5:37 AM)[facility]annBLOOD BANK RESULTS 2020-08-29 10:37:00Negative (08/29/20 5:37 AM)[facility]annCHEM CLBXD7905-68-69 10:37:85143Eofdtbve HermannCHEM IXDVG1779-04-42 10:37:0028[facility]annCHEM FTCMV8682-24-46 10:37:001.01[facility]annCHEM GQNMY6142-09-16 10:37:01417 [facility]CHE[facility] TFGUK6615-22-07 10:37:003.8[facility] HermannCHEM PANEL 2020-08-29 10:37:81959Lkntbnoz [facility]annCHEM FGIQK4019-49-48 10:37:0028[facility]annCHEM MILKZ4411-62-49 10:37:009.8[facility]annCHEM YCFZF6859-10-46 10:37:0011.8[facility] HermannCHEM WPEVN4947-91-52 10:37:0059[facility]annCHEM IPOVL6873-55-18 10:37:002.9[facility] NpofmhkXYKXOVIZEB6449-44-67 10:37:006.8 [facility] WbpegcfRHNFSNCRZE2833-47-36 10:37:004.47[facility] HermannHEMATOLOGY 2020-08-29 10:37:0010.6[facility] WtiecfhEZEIUSCBBY9569-69-98 10:37:0034.0[facility] MyebmbxSBVTSWWUNC7230-11-61 10:37:0076.1[facility] NkzanxeEBCTDTBFNE3600-08-98 10:37:00 Test Item Value Reference Range Interpretation Comments MCH (test code = MCH) 23.8 pg 27.0-31.0 [facility] RobignaZPLUKTYSLH1409-57-75 10:37:0031.3[facility] HermannHEMATOLOGY 2020-08-29 10:37:0018.2[facility] ItkfktkHEFYRAKCLS8294-40-32 10:37:51826Bxfdzvnb SpxxuilBZYTFRTVPI5131-96-17 10:37:007.5[facility] YxhkvnoEMFJBNDCNV4601-12-84 10:37:00 Test Item Value Reference Range Interpretation Comments PT (test code = PT) 12.8 s 12.0-14.7 [facility] GwespfxAOQRACGLSV2595-96-46 10:37:00 Test Item Value Reference Range Interpretation Comments INR (test code = INR) 0.97 1 0.85-1.17 [facility] VwpzfmbHCJVTZZHOT7648-18-17 10:37:00 Test Item Value Reference Range Interpretation Comments PTT (test code = PTT) 25.0 s 22.9-35.8 [facility] ObihvluHSBJNTIOZT5820-43-10 10:37:0070.5[facility]annHEMATOLOGY 2020-08-29 10:37:0018.8[facility] PjfbifuXBFXVILVVV6435-68-45 10:37:009.5[facility] JbbuatnYSHDDFSFTI9486-23-86 10:37:000.9[facility] KrqcprfFEMGABCGLO6909-11-11 10:37:000.3[facility] DcrkdruDLOEBHVBVA5701-36-16 10:37:004.8[facility] [place] GJGGAVGQYL9179-90-15 10:37:001.3[facility] PzwwtsmLUREHUQCIR4550-34-07 10:37:000.6 [facility] RakavzkRNLVOFBCYM5174-14-45 10:37:000.1[facility] HermannHEMATOLOGY 2020-08-29 10:37:001+ *ABN*(08/29/20 5:37 AM)[facility] DhyuolpCTCGYSNXQB4669-53-02 10:37:00Not Detected (08/29/20 5:37 AM)[facility]annBLOOD BANK RESULTS 2020-08-29 10:37:00Negative (08/29/20 5:37 AM)[facility]annCHEM PKWLA8314-74-76 10:37:42989Gnwpqlre [facility]annCHEM BKLPE8181-18-98 10:37:0028[facility]annCHEM WHLAF6762-42-49 10:37:001.01[facility]annCHEM EZZEV5795-41-30 10:37:85385 [facility]CHE[facility] WBVHV0320-88-66 10:37:003.8[facility]annCHEM PANEL 2020-08-29 10:37:32680Aeoflkmq [facility]CHEM QPBSM2928-97-29 10:37:0028[facility]annCHEM YURZQ7079-73-49 10:37:009.8[facility]annCHEM TWNXI5959-65-60 10:37:0011.8[facility]annCHEM QJVXQ2106-43-33 10:37:0059[facility]annCHEM RLYHW6712-03-62 10:37:002.9[facility] RhvjmpiHGKHBZOCQV5973-66-55 10:37:006.8 [facility] EuogdyzBNSLYMPYPL1488-49-78 10:37:004.47[facility]annHEMATOLOGY 2020-08-29 10:37:0010.6[facility] TgalpyxTTYXRNLGAP4260-48-61 10:37:0034.0[facility] SscphruHRZYTZOKFH6506-84-87 10:37:0076.1[facility] UmfawwjQMOGMCPSOZ0726-29-35 10:37:00 Test Item Value Reference Range Interpretation Comments MCH (test code = MCH) 23.8 pg 27.0-31.0 [facility] AuarackCAMORTOTKU1803-82-90 10:37:0031.3[facility]annHEMATOLOGY 2020-08-29 10:37:0018.2[facility] KyfvoozZAKNTEXXJW1856-72-77 10:37:19584Zqusqofk SuqgdqxZYRAZBTLTK0945-01-88 10:37:007.5[facility] DzxwrfsPSZSNLXUJK6495-70-20 10:37:00 Test Item Value Reference Range Interpretation Comments PT (test code = PT) 12.8 s 12.0-14.7 [facility] WwqkytkBLMGPATXCI5868-13-36 10:37:00 Test Item Value Reference Range Interpretation Comments INR (test code = INR) 0.97 1 0.85-1.17 [facility] ZttcxgqRGUXHYSFRS6023-84-15 10:37:00 Test Item Value Reference Range Interpretation Comments PTT (test code = PTT) 25.0 s 22.9-35.8 [facility] FmhbjchMMENNPMQVM2312-70-39 10:37:0070.5[facility]annHEMATOLOGY 2020-08-29 10:37:0018.8[facility] IsltzbnCRJDOZHDXU9664-12-71 10:37:009.5[facility] NxrwsgzGGSZKSMQBL2043-40-05 10:37:000.9[facility] VbeldxqCRDJYIKOCR5292-37-33 10:37:000.3[facility] VklewlaDEQDSZJPKP6275-05-08 10:37:004.8[facility] [place] IBDZJDTMZG6456-33-89 10:37:001.3[facility] EuqabqlJNKMELDGIU5882-18-89 10:37:000.6 [facility] JxyjvgiKGZBGTJBAP5416-82-34 10:37:000.1[facility] HermannHEMATOLOGY 2020-08-29 10:37:001+ *ABN*(08/29/20 5:37 AM)[facility] HzhawgaPLHHXBWYTG8923-09-59 10:37:00Not Detected (08/29/20 5:37 AM)[facility]annBLOOD BANK RESULTS 2020-08-29 10:37:00Negative (08/29/20 5:37 AM)[facility]annCHEM MGKXM5174-45-97 10:37:46932Vowzlehe HermannCHEM ZZGWE9343-94-57 10:37:0028[facility]annCHEM OXDDS5688-88-08 10:37:001.01[facility]annCHEM NUTBF6515-19-02 10:37:07128 [facility]CHE[facility] EFUBP4476-17-29 10:37:003.8[facility]annCHE[facility] PANEL 2020-08-29 10:37:24102Qtixvqmg HermannCHEM KLRMN1081-23-11 10:37:0028[facility]annCHE[facility] UXATN5296-62-42 10:37:009.8[facility]annCHE[facility] GYPFI5853-09-25 10:37:0011.8[facility]annCHE[facility] VMENT9325-14-03 10:37:0059[facility]annCHE[facility] ODBUF4895-18-64 10:37:002.9[facility] LjawozhHHOOCGYOOA8415-27-20 10:37:006.8 [facility] CnosfwwZEJEIXCCCC4152-14-81 10:37:004.47[facility]annHEMATOLOGY 2020-08-29 10:37:0010.6[facility] FwtrvtqRHFZAOAXEX9284-04-91 10:37:0034.0[facility] TcaszmiGYIBANYVAC9418-70-83 10:37:0076.1[facility] JqfojmsQUPJXHJWEQ5836-76-57 10:37:00 Test Item Value Reference Range Interpretation Comments MCH (test code = MCH) 23.8 pg 27.0-31.0 [facility] CjtfmleBPYXJVVXJI1669-05-61 10:37:0031.3[facility]annHEMATOLOGY 2020-08-29 10:37:0018.2[facility] WjcigerPOUQGOUDVN7097-97-48 10:37:60783Dcrzwufz GjvktijNOAZMMLVSI0381-09-07 10:37:007.5[facility] IsmagioRZBYOUBWLE6917-62-47 10:37:00 Test Item Value Reference Range Interpretation Comments PT (test code = PT) 12.8 s 12.0-14.7 [facility] OyzztdwANUEIRKVEB3494-70-96 10:37:00 Test Item Value Reference Range Interpretation Comments INR (test code = INR) 0.97 1 0.85-1.17 [facility] IcnxdzbXLBQAMTOBU9255-93-10 10:37:00 Test Item Value Reference Range Interpretation Comments PTT (test code = PTT) 25.0 s 22.9-35.8 [facility] AewterhXLNNDDEFMY3858-82-34 10:37:0070.5[facility]annHEMATOLOGY 2020-08-29 10:37:0018.8[facility] TlilxbiXYOAMYUYCB9948-25-51 10:37:009.5[facility] CvgjtroWJHUXYPJWU3020-79-90 10:37:000.9[facility] XpebafqMXXVMZIOXQ3969-29-23 10:37:000.3[facility] HwmdvqgWIYWADVVLI9809-20-02 10:37:004.8[facility] [place] RXGTVPQBVK3871-60-19 10:37:001.3[facility] KrupxhtOFEVVYLRTE9679-45-24 10:37:000.6 [facility] DnnwvbnOIOFVWHREK8883-84-89 10:37:000.1[facility]annHEMATOLOGY 2020-08-29 10:37:001+ *ABN*(08/29/20 5:37 AM)[facility] UatdxdgEXQWAYWWGR1832-21-15 10:37:00Not Detected (08/29/20 5:37 AM)[facility] RESULTS 2020-08-29 10:37:00Negative (08/29/20 5:37 AM)[facility]annCHE[facility] WFWJF9994-49-83 10:37:84436Xzsrzryz HermannCHEM CYUXY3813-52-24 10:37:0028[facility]annCHE[facility] JQMSH5593-38-63 10:37:001.01[facility]annCHEM JNRLQ9465-69-77 10:37:02214 [facility] MLCJC1412-52-31 10:37:003.8[facility]annCHEM PANEL 2020-08-29 10:37:75833Prailrcg HermannCHEM WRVNN9777-65-33 10:37:0028[facility]annCHE[facility] MBVHK9961-15-89 10:37:009.8[facility]annCHEM AHOIF0841-46-10 10:37:0011.8[facility]annCHEM YXUOL4343-89-37 10:37:0059[facility]annCHE[facility] VNEZU7705-44-03 10:37:002.9[facility] YoegezoSPUYPJLFJL1196-80-03 10:37:006.8 [facility] CzlfqaoJRUWKMFJDF0625-76-78 10:37:004.47[facility]annHEMATOLOGY 2020-08-29 10:37:0010.6[facility] HokefukHWFKKKARMQ4829-04-19 10:37:0034.0[facility] SzvnvwoJEXKVSUWCG6043-37-53 10:37:0076.1[facility] FortamtDWOZSKMGHO1621-84-08 10:37:00 Test Item Value Reference Range Interpretation Comments MCH (test code = MCH) 23.8 pg 27.0-31.0 [facility] ArornyzFUDSIGHMCP2784-25-97 10:37:0031.3[facility]annHEMATOLOGY 2020-08-29 10:37:0018.2[facility] ZlaazzqZVVLHJLYES4390-15-40 10:37:03802Egkdopjo BcumnlyRNFQSLPDZH9490-29-52 10:37:007.5[facility] GzakxovZWEZBQLNGZ6055-06-62 10:37:00 Test Item Value Reference Range Interpretation Comments PT (test code = PT) 12.8 s 12.0-14.7 [facility] SyidgkwCVRTOYVUTZ4609-04-99 10:37:00 Test Item Value Reference Range Interpretation Comments INR (test code = INR) 0.97 1 0.85-1.17 [facility] JpcisesMSRKNYIVLB3397-28-13 10:37:00 Test Item Value Reference Range Interpretation Comments PTT (test code = PTT) 25.0 s 22.9-35.8 [facility] EbjrqjpXURAMGJKFS2664-83-28 10:37:0070.5[facility] HermannHEMATOLOGY 2020-08-29 10:37:0018.8[facility] RyxhoyaSJLQERFBLT8183-60-97 10:37:009.5[facility] OzjniwaGRJQBPJVPO4819-97-18 10:37:000.9[facility] SgsyegoRTLJPPLNPB1573-34-18 10:37:000.3[facility] PsasufuVLEPCDZFEX3636-99-01 10:37:004.8[facility] Marty VNIJKHTCLE0562-71-94 10:37:001.3[facility] AiuovyxSBLUVKHBYS7448-84-41 10:37:000.6 [facility] EpfgqwfBJWHHXEJIP6916-22-00 10:37:000.1[facility] HermannHEMATOLOGY 2020-08-29 10:37:001+ *ABN*(08/29/20 5:37 AM)[facility] BbtzzmkECPRYCNEWR1732-94-53 10:37:00Not Detected (08/29/20 5:37 AM)[facility] CenterannCHLAMYDIA, GC, TV,PCR, IN SEGCX5253-92-78 15:38:00 Test Item Value Reference Range Interpretation Comments FT (test code = CHTR) Not detected (qualifier Not Detected N value) FT (test code = Not detected (qualifier Not Detected N NGONO) value) FT (test code = TRVG) Not detected (qualifier Not Detected N value) [facility] NBQIHZJXKTI7248-68-69 10:57:00 Test Item Value Reference Range Interpretation Comments Color (test code = UCOLR) Dk. Yellow Clarity (test code = UCLAR) Hazy Glucose (test code = UGLUC) NEGATIVE NEGATIVE N Bilirubin (test code = UBILI) NEGATIVE NEGATIVE N Ketones (test code = UKET) NEGATIVE NEGATIVE N Specific [place] (test code = 1.025 1.005-1.030 A USPGR) [...] = None Seen None Seen N URCRYS) [facility] Notes Date/Time Note Provider Source 2023-01-27 0661-43-98X82:59:00Formatting of this Tatyana Corbin [facility] 18:59:00 note might be different from the Sergio RAMIREZ original.Pt given printed and verbal discharge instructions regarding abdominal pain and gastroenteritis, encouraged hydration.Prescriptions provided.Pt verbalized understanding of instructions, pt awake alert oriented, resp reg unlabored, skin w/d, color appropriate for race, moves all ext well, pt encouraged to follow up with pcp.Advised to seek medical attention for new/prolonged/worsening of symptoms.Symptoms addressed.No adverse reaction to meds given in ER noted upon discharge.PIV d'cd, dressing to site, catheter intact.Pt leaving amb with steady gait, in no apparent distress. Left with . 02508-6Lxqmdowxo department EokdUP8145-58-10J32:10:59Emergency department NoteTXT1.2.840.066073.1.13.104.2.7.2.72 7879|[id number] for patient ript41972-2OyosCZ728965289Piqovywj M Rivera RNUT[address] [id number] TFGBPXCEXINXDDNSJPN7241-46-16G64:10:591 .2.840.450325.1.72.3.15|1.2.840.527196. 1.13.104.2.7.2.727879_[id number] 2023-01-27 5695-97-20N76:20:34Formatting of this [facility] 16:20:34 note might be different from the original.Nurse Report Report given to ASHLEY Gandhi. Chief complaint, assessment findings, and orders reviewed. Plan of care discussed [place] [address]-7Jvkpijuyj department KliqBL6472-91-40K59:20:53[facility] department NoteTXT1.2.840.804226.1.13.104.2.7.2.72 7879|[id number] for patient yuhm12451-0ZssyILIIIGOOGN[address] [id number] YECMKTOKNCEYDDOYMKH1704-77-15S66:20:531 .2.840.121090.1.72.3.15|1.2.840.215716. 1.13.104.2.7.2.727879_[id number] 2023-01-27 0366-11-45K76:45:37Formatting of this Reba burgos [facility] 10:45:37 note might be different from the RN original.Pt arrived via [facility] with c/o abd pain and vomiting. Received zofran 4mg IM by ems. 53679-1Ipxlorpqk department Triage wimpXT8502-21-92J68:47:00[facility] Triage noteTXT1.2.840.003967.1.13.104.2.7.2.72 7879|[id number] for patient vsec54195-7Pxzfevmos department IfmkLW894722814Vmdei L Barker [id number] XKMTXVNZBKDTVHMBLPU0535-16-01K60:47:001 .2.840.043510.1.72.3.15|1.2.840.802204. 1.13.104.2.7.2.727879_[id number] 2023-01-17 1131-25-46H73:44:10Formatting of this [facility] 09:44:10 note might be different from the original.Marjan Dean is a 67 year old female pt called requesting refill forraltegravir (ISENTRESS) 400 mg tabletemtricitabine-tenofovir alafen (DESCOVY) tabletPlease [id number] [place], [place] - [address] [employer] & saambaaPhone: Kfhmsupfrygbbs signed by Mena Olivarez at 01/17/2023 9:46 AM EMW96180-3Jprpeobss encounter KrwdNO1839-67-47B01:46:10Telephone encounter NoteTXT1.2.840.810066.1.13.104.2.7.2.72 7879|[id number] for patient awdc05776-1BtvbVZHWWMCDGU[id number] MQNCCVULPDHIXDWZHOR3781-77-59A61:46:101 .2.840.924464.1.72.3.15|1.2.840.764649. 1.13.104.2.7.2.727879_[id number] 2021-08-05 [id number]:08:962855-875 [facility] 14:08:[address] [place], [place] [address] PATIENT NAME: MARJAN FLEMING ADMIT DATE: 08/05/21ACCOUNT NO: [id number] ROOM NO: AGE: 66 REPORT TYPE: eTRANSESOPHAGEAL ECHO REPORT SEX: F ADMITTING PHYSICIAN: ATTENDING PHYSICIAN:Mike Lund MD *[address], [place] [address]Pwurq: [phone]: [phone] Transesophageal Echocardiogram Patient: Venu Flemingudy Date: 08/05/2021 BP: 158 / 92 Location: [place]: [id number] : 1955 Age: 66 Height: / Gender: F Weight: /BMI/BSA: / *Ordering Physician: * Mike Lund *Interpreting Physician: * Ashely Mckeon MD*Math Coach: * [place] [employer] Indica tions: POST WATCHMAN. Study data: Consent: The risks, benefits, and alternatives to theprocedure were explained to the patient and informed consent wasobtained. Procedure: Initial setup: [facility].Intravenous access was obtained. SurfaceECG leads and pulse oximetric signals were monitored. Sedation. Moderatesedation was administered by cardiology staff. Transesophagealechocardiography was performed. Topical anesthesia was obtained usingbenzocaine spray. A transesophageal probe (SN: [id number]) was inserted bythe attending patient care coordinator without difficulty. Location: [facility].Patient status: Outpatient. Study completion: The patient toleratedthe procedure well. There were no complications. Findin Left ventricle: The cavity size is normal. Wall thickness is normal.Systolic function is normal. The estimated ejection fraction is 60-64%.Wall motion is normal; there are no regional wall motion abnormalities.PATIENT NAME: MARJAN FLEMING Left atrium: The atrium is normal in size. Post Watchman: There is noevidence of residual flow around the Watchman occluder device.Atrial septum: No defect or patent foramen ovale is identified.Aortic valve: The valve is structurally normal. The valve istrileaflet. There is no evidence of stenosis.Mitral valve: The valve is structurally normal. There is mildregurgitation.Tricuspid valve: The valve is structurally normal. There is trivialregurgitation. Conclu sions Summary: 1. Procedure narrative: Initial setup: The patient was brought to the laboratory in the fasting state.Intravenous access was obtained. Surface ECG leads and pulse oximetric signals were monitored. Sedation. Moderate sedation was administered by cardiology staff. Transesophageal echocardiography was performed. Topical anesthesia was obtained using benzocaine spray. A transesophageal probe (SN: [id number]) was inserted by the attending patient care coordinator without difficulty.2. Left ventricle: The cavity size is normal. Wall thickness is normal. Systolic function is normal. The estimated ejection fraction is 60-64%. Wall motion is normal; there are no regional wall motion abnormalities.3. Left atrium: Post Watchman: There is no evidence of residual flow around the Watchman occluder device.4. Atrial septum: No defect or patent foramen ovale is identified.5. Mitral valve: There is mild regurgitation.6. Tricuspid valve: There is trivial regurgitation. Prepared and electronically signed by Ashely Mckeon MD08/05/2021 14:08 at 1408 PATIENT NAME: MARJAN FLEMING rmxppyo7352-94-84L29:08:00G.[id number] -0029AVAvailable for patient ivxmPCKDNGVMZATFZB6036-03-71B11:09:16 2021-06-24 [id number]:18:534389-377 [facility] 11:18:00 [address] [address] PATIENT NAME: MARJAN FLEMING ADMIT DATE: 06/17/21ACCOUNT NO: [id number] ROOM NO: COLT AGE: 66 REPORT TYPE: eTRANSESOPHAGEAL ECHO REPORT SEX: F ADMITTING PHYSICIAN:Mike Lund MD ATTENDING PHYSICIAN:Mike Lund MD *[place], [place] [address]Phone: Bbb: [phone] Transesophageal Echocardiogram for Watchman Patient: Venu Flemingudcharlie Date: 06/17/2021 BP: Location: [place]: [id number] : 1955 Age: 66 Height: / Gender: F Weight: /BMI/BSA: / *Ordering Physician: * Mike Lund *Interpreting Physician: * Ashely Mckeon MD Indica tions: Watchman procedure. Study data: Transesophageal Echocardiogram for Watchman. Consent: Therisks, benefits, and alternatives to the procedure and sedation wereexplained to the patient and informed consent was obtained. Procedure:Initial setup: The patient was brought to the laboratory in the fastingstate.Intravenous access was obtained. Surface ECG leads, blood pressuremeasurements, and pulse oximetric signals were monitored. Sedation.Sedation was administered by anesthesiology staff. Transesophagealechocardiography was performed. A transesophageal probe was inserted bythe anesthesiologist. Images were obtained using a GIVTED cardiac ultrasoundmachine. Location: Catheterization laboratory. Study completion: Thepatient tolerated the procedure well. There were no complications. Findin gs Conclu sions Summary:PATIENT NAME: MARJAN FLEMING 1. Study data: Transesophageal Echocardiogram for Watchman.2. Procedure narrative: Transesophageal echocardiography was performed. A transesophageal probe was inserted by the anesthesiologist. Images were obtained using a GIVTED cardiac ultrasound machine. Impressions: Patient with paroxysmal atrial fibrillation, CHADSVASCscore of 5, and intolerance to long-term anticoagulation due to anemia,CVA, and recurrent falls. Patient is s/p successful implantation of a 24mm Watchman device in theleft atrial appendage. Patient tolerated the procedure without post-op complications. No thrombus was identified in the pre-/intra-op WESLEY. Postoperatively, chest x-ray is negative for any acute process. Post-opecho did not show a pericardial effusion. Patient ambulated without any difficulty, and heart rate and bloodpressure are stable. Right groin suture removed by this MECHANICAL SOUND TECHNICIAN. No infection, bleeding, orhematoma. Dermabond applied and intact. Patient was provided with post-Watchman discharge instructions. Patientis to follow up with PCP and patient care coordinator in 1 to 2 weeks postdischarge. Patient is to follow up with patient care coordinator for the 45-day WESLEY, and foranticoagulation recommendation.Prepared and electronically signed by Ashely Mckeon MD06/24/2021 11:18 at 1118 PATIENT NAME: MARJAN FLEMING pdjtmag5386-89-03U91:18:00G.[id number] -0023AVAvailable for patient ybbgXAAFLUQAVTBDWB6787-92-95K67:19:25 2021-06-17 [id number]:10:024839-893 [facility] 18:10:00 [address] [id number] PATIENT NAME: MARJAN FLEMING ADMIT DATE: 06/17/21ACCOUNT NO: [id number] ROOM NO: [facility] AGE: 66 REPORT TYPE: eECHOCARDIOGRAM REPORT SEX: F ADMITTING PHYSICIAN:Mike Lund MD ATTENDING PHYSICIAN:Mike Lund MD *[address] [address]Uzmzr: [phone]: [phone] Limited Transthoracic Echocardiogram Patient: Venu Flemingudy Date: 06/17/2021 BP: 117 / 82 Location: [place]: [id number] : 1955 Age: 66 Height: 64 in / 162.6 cmAccession#: [id number] Gender: F Weight: 210 lb / 95.5 kgBMI/BSA: 36.1 kg/m 2 / 2.12 m 2 *Ordering Physician: * Bahman Chopra *Interpreting Physician: * Kevin Merino MD*Math Coach: * Tiarra Loja Indica tions: Post Watchman/Rule out pericardial effusion. Study data: Transthoracic echocardiogram, limited study. Procedure:Transthoracic echocardiography was performed. Image quality wasadequate. Limited 2D and limited spectral Doppler. Location: [facility].Patient status: Outpatient. Study status: Routine. Rhythm: SinusBradycardia. Findin gs Left ventricle: The cavity size is normal. Wall thickness is normal.Systolic function is normal. The estimated ejection fraction is 60-64%.Wall motion is normal; there are no regional wall motion abnormalities.Left ventricular diastolic function parameters are normal for thepatient's age.Left atrium: The atrium is normal in size.PATIENT NAME: MARJAN FLEMING Right atrium: The atrium is dilated.Aorta: Aortic root: The aortic root is normal in size.Aortic valve: The valve is structurally normal. The valve istrileaflet. There is no evidence of stenosis. There is noregurgitation.Mitral valve: The valve is structurally normal. There is noevidence of stenosis. There is trivial regurgitation.Tricuspid valve: Estimated right ventricle systolic pressure is 32.30mmHg. The valve is structurally normal. There is mild regurgitation.Pulmonic valve: The valve is structurally normal. There is mildregurgitation.Pericardium: A small/Trivial pericardial effusion versus fat pad isidentified anterior to the heart.Pulmonary arteries:The main pulmonary artery is normal-sized.Systemic veins:Inferior vena cava: The vessel is normal in size. Measur ements Left ventricle Value Ref ANALI, LAX 4.6 [...] Value Ref Peak v, S 1.04 m/sec ---------PATIENT NAME: MARJAN FLEMING Peak grad, S 4 mm Hg --------- [...] RV-RA grad, S 22 mm Hg --------- Conclu sions Summary: 1. Left ventricle: The cavity size is normal. Wall thickness is normal. Systolic function is normal. The estimated ejection fraction is 60-64%. Wall motion is normal; there are no regional wall motion abnormalities. Left ventricular diastolic function parameters are normal for the patient's age.2. Right atrium: The atrium is dilated.3. Tricuspid valve: Estimated right ventricle systolic pressure is 32.30 mmHg. There is mild regurgitation.4. Pulmonic valve: There is mild regurgitation.5. Pericardium, extracardiac: A small/Trivial pericardial effusion versus fat pad is identified anterior to the heart. Prepared and electronically signed by Kevin Merino MD06/17/2021 18:10 at 1810PATIENT NAME: MARJAN FLEMING 26T18:10:00G.[id number] for patient bgmoBSXQJZAQHVSXTO4104-08-92P90:10:56 2021-06-17 [id number]:12:00 [facility] 11:12:00 [facility] ([facility])Discharge SummaryREPORT#:[id number] REPORT STATUS: SignedDATE:06/17/21 TIME: 1112 PATIENT: MARJAN FLEMING UNIT #: [id number]#: [id number] [address] [birth year] AGE: 67 SEX: F ATTEND: Mike Lund AUTHOR: Bahman Chopra * ALL edits or amendments must be made on the electronic/computer document * PCP PCPDischarge to: home General InformationDischarge date: 06/17/21Hospital course:Patient with paroxysmal atrial fibrillation, CHADSVASC score of 5, and intolerance to long-term anticoagulation due to anemia, CVA, and recurrent falls. Patient is s/p successful implantation of a 24mm Watchman device in the left atrial appendage. Patient tolerated the procedure without post-op complications. No thrombus was identified in the pre-/intra-op WESLEY. Postoperatively, chest x-ray is negative for any acute process. Post-op echo didnot show a pericardial effusion. Patient ambulated without any difficulty, and heart rate and blood pressure are stable. Right groin suture removed by this MECHANICAL SOUND TECHNICIAN. No infection, bleeding, or hematoma. Dermabond applied and intact. Patient was provided with post-Watchman discharge instructions. Patient is to follow up with PCP and patient care coordinator in 1 to 2 weeks post discharge. Patient is to follow up with patient care coordinator for the 45-day WESLEY, and for anticoagulation recommendation. Patient is to continue Eliquis until the 45-day WESLEY. If the 45-day WESLEY shows a well-seated watchman device with no leaks or thrombus,then Eliquis will be discontinued and the patient will be initiated on aspirin and Plavix. Duration of aspirin is lifelong. Duration of Plavix is 6 months post 45-day WESLEY. Post-Watchman discharge instructions given to the patient who verbalized understanding, and patient was instructed to report any complaints of chest pain, shortness of breath, lightheadedness, or dizziness to the patient care coordinator. Dispo: It is medically necessary that patients undergoing percutaneous left atrial appendage occlusion are admitted as an inpatient. This patient had a recovery that was earlier than expected and can be discharged today. Med Rec PCPPCP:PCP: Lele Rahman DO Med RecDischarge meds:Continue taking these medications:METOPROLOL TARTRATE (LOPRESSOR) 100 MG TAB 100 MILLIGRAM ORAL TWICE DAILY. LISINOPRIL (ZESTRIL) 40 MG TAB 40 MILLIGRAM ORAL TWICE DAILY. hydrALAZINE (APRESOLINE) 25 MG TAB 25 MILLIGRAM ORAL THREE TIMES A DAY. Emtricitabine/Tenofov Alafenam (DESCOVY 200-25 MG Tablet) 200 MG-25 MG TAB 1 TABLET ORAL DAILY. RALTEGRAVIR (ISENTRESS) 400 MG TAB 400 MILLIGRAM ORAL TWICE DAILY. LORazepam (ATIVAN) 2 MG TAB 2 MILLIGRAM ORAL TWICE DAILY NEEDED. as needed for ANXIETY buPROPion HCL SR (WELLBUTRIN SR) [...] MG TAB 100 MILLIGRAM ORAL TWICE DAILY. ObjectiveVS/I OLast Documented: Result Date Time O2 Delivery Nasal cannula 06/17 102 O2 Flow Rate 3.5 06/17 102 Pulse Ox 96 06/17 628 B/P 228/108 06/17 628 Temp 36.0 06/17 628 Pulse 62 06/17 628 Resp 18 06/17 628 24 hour I O ending at 0700: 06/17 0700 06/16 1900 Intake Total Output Total Balance Patient 95.7 kg 97.2 kg Weight Weight Stated/Reported Standing scale Measurement Method PATIENT WEIGHT: Weight (lb): 210Weight (oz): 15.72Weight (kg): 95.700 General appearance: alert, awake, orientedCardiovascular: regular rate rhythmRespiratory: clear to auscultation, no distressGI: soft, non-tenderExtremities: moves allNeuro/DOCUMENTATION BILLING CLERK: alert, oriented X 3Skin: dryWound/incision: Location:Right groin suture removed by this MECHANICAL SOUND TECHNICIAN. No infection, bleeding, or hematoma. Dermabond applied and intact. ResultsFindings/Data:Laboratory Tests: 06/17 06/16 0834 1200 Coagulation Activated Coag Time (74 - 137 SEC) 249 H Serology SARS-CoV-2 Ag (Rapid) (Negative) Negative Treatments ProceduresImaging:Recent Impressions:RADIOLOGY - XR CHEST 2 V 06/16 1120 Report Impression - Status: SIGNED Entered: 06/16/2021 1135 IMPRESSION: No acute cardiopulmonary findings Impression By: IselaMP37 Bibiana Collins D.O. Discharge Instructions PCPPCP:PCP: Lele Rahman DO )( Discharge to: Home/Self Care Discharge InstructionsAdditional Discharge Routines: Attending Follow-Up)( Diet: Cardiac)( Activity: As Tolerated Follow-up AppointmentsAttending Physician: Attending Physician: Mike Lund MD Attending physician follow up timeframe: In 1-2 weeks at 1613 at 0946 [facility] #:[id number] OF REPORTDSDischarge qsufuqr9703-81-64N90:12:00G.[id number] 6-05AVAvailable for patient qetpFQXHLPHQHFVPDG2544-61-91M94:13:30 2021-06-17 [id number]:43:[id number] [facility] 09:43:00 [address] [address] PATIENT NAME: MARJAN FLEMING ADMIT DATE: 06/17/21ACCOUNT NO: [id number] ROOM NO: [facility] AGE: 66 REPORT TYPE: eELECTROCARDIOGRAM REPORT SEX: F ADMITTING PHYSICIAN:Mike Lund MD ATTENDING PHYSICIAN:Mike Lund MD Order:[id number] Reason : S/P WATCHMAN Test Date/Time Stamp:TueJun 17 2021 09:43:45Blood Pressure : / mmHGVent. Rate : 062 BPM Atrial Rate : 062 BPM P-R Int : 176 ms QRS Dur : 086 ms QT Int : 500 ms P-R-T Axes : 071 013 -04 degrees QTc Int : 507 ms Sinus rhythm with premature atrial complexesMinimal voltage criteria for LVH, may be normal variantNonspecific ST and T wave abnormalityProlonged QTAbnormal ECG Confirmed by ARMANDO FISHER MD ([id number]) on 06/17/2021 6:07:19 PM Referred By: Mike Lund Confirmed by:ARMANDO FISHER MD at 1808 PATIENT NAME: MARJAN FLEMING .[id number] for patient cyzcOQYZBYZXIGRLGG0981-83-68K72:07:56 2021-06-17 [id number]:54:[id number] [facility] 08:54:00 [address] [facility] [address] [address] PATIENT NAME: MARJAN FLEMING ADMIT DATE: 06/17/21ACCOUNT NO: [id number] ROOM NO: [facility] AGE: 66 REPORT TYPE: CARDIAC CATHETERIZATION REPORT SEX: F ADMITTING PHYSICIAN:Mike Lund MD ATTENDING PHYSICIAN:Mike Lund MD PROCEDURE DATE: 06/17/2021 PROCEDURE PERFORMED: Left atrial appendage closure using a 24 mm Watchman FLXclosure device. ACCESS: Right femoral vein, 16-Filipino closed with rtpvhc-wf-nyizx suture. BI MANAGER: Mike Lund MD. SECONDARY ASSOCIATE PROFESSOR PLANT PATHOLOGY: Kevin Merino MD. COMPLICATIONS: None. BLEEDING: Less than 20 mL. INDICATIONS: Atrial fibrillation with high risk for stroke and multiple falls. DESCRIPTION OF PROCEDURE: After risks, benefits, and alternatives wereexplained, the patient agreed to proceed and signed informed consent. Thepatient was brought into the cardiac catheterization laboratory, prepped anddraped in usual sterile fashion. After general anesthesia was applied and TEEprobe was inserted by anesthesia, a preprocedure WESLEY was reviewed and nothrombus was found in the appendage and then I took a micropuncture kit andunder ultrasound guidance, I accessed right femoral vein, placed 8-FrenchPinnacle sheath. Subsequently, upgraded to 16-Filipino sheath and gave a partialdose of heparin, then took the SL1 sheath into the SVC over a wire with Baylisneedle inside, descended under the fluoroscopy and WESLEY guidance in the low midposition. Transseptal puncture was performed. LA pressure was recorded at 21mmHg. I took ProTrack wire into the left atrium, exchanged for a Watchmandouble curve sheath and then took a pigtail through the Watchman sheath into theleft atrium and navigated that into the appendage and telescoped the Watchmansheath over to the appendage and appendage angiogram was performed, determinedthe 24-mm device will be suitable for closure. The device was prepped andde-aired in usual sterile fashion. Then, pigtail was removed and after goodbleed back from the sheath and with the positive flush through the deliverysystem, delivery system was advanced through the Watchman sheath into theappendage and then device was deployed under fluoroscopy and WESLEY guidance andPASS criteria were all evaluated and met. Device was stable, such it wasreleased in position and the patient tolerated the procedure very well. Iremoved the Watchman sheath and the 16-Filipino sheath and placed nfnplo-jy-ienyvxpnugf for hemostasis, then achieved a good hemostasis. CONCLUSION: Left atrial appendage closure using a 24 mm Watchman FLX closurePATIENT NAME: MARJAN FLEMING device. Dictated By: Mike Lund MD WT: CATH:GAYLE/RIKY/NTSDD: 06/17/2021 08:54:26DT: 06/17/2021 10:31:08Conf#: [id number]#: [id number] Authenticated by Mike Lund MD On 07/01/2021 12:30:01 PM at 1230 PATIENT NAME: MARJAN FLEMING leew2201-90-40U63:31:00G.[id number] 09AVAvailable for patient dwmqBOIVPQHATGANXJ6733-20-51W97:30:34 2021-06-16 [id number]:36:[id number] [facility] 10:36:[address] [address] PATIENT NAME: MARJAN FLEMING ADMIT DATE: ACCOUNT NO: [id number] ROOM NO: AGE: 66 REPORT TYPE: eELECTROCARDIOGRAM REPORT SEX: F ADMITTING PHYSICIAN: ATTENDING PHYSICIAN:Mike Lund MD Order:[id number] Reason : PREOP Test Date/Time Stamp:TueJun 16 2021 10:36:24Blood Pressure : / mmHGVent. Rate : 062 BPM Atrial Rate : 062 BPM P-R Int : 148 ms QRS Dur : 078 ms QT Int : 464 ms P-R-T Axes : 008 022 033 degrees QTc Int : 470 ms Normal sinus rhythmNonspecific ST and T wave abnormalityProlonged QTAbnormal ECGPRE_OPConfirmed by ARMANDO FISHER MD ([id number]) on 06/16/2021 11:29:35 AM Referred By: Mike Lund Confirmed by:ARMANDO FISHER MD at 1129 PATIENT NAME: MARJAN FLEMING .XSI170 [id number] for patient puozVMBHZEHYSEADDB1366-00-74M24:30:05
[2023-04-19] MEDS ORDERED: DIPHENHYDRAMINE 25 MG TAB/CAP ONE (09:28)
[2023-04-19] MEDS ORDERED: predniSONE 20 MG TAB ONE (09:28)
[2023-04-19] MEDS ORDERED: FAMOTIDINE 20 MG TAB ONE (09:29)
[2023-04-19 09:46] VITALS: BP 185/94; TEMP 97; O2SAT 96
== END 2023-04-19 09:23 | disposition home or self-care (01) ==
LOC: ER 08:35
DX: R21 Rash and other nonspecific skin eruption (principal); I10 Essential (primary) hypertension; Z21 Asymptomatic human immunodeficiency virus [HIV] infection status; Z88.1 Allergy status to other antibiotic agents; Z88.2 Allergy status to sulfonamides; Z88.8 Allergy status to other drugs, medicaments and biological substances
CPT/HCPCS: 99283; J7512

== ENCOUNTER → 2023-06-01 | Emergency (ER) | payer OTHER ==
[~2023-06-01] MED LIST changes: +DIPHENHYDRAMINE 50 MG/ML VIAL ONE; +MORPHINE 2 MG/ML SYR ONE; +ONDANSETRON 4 MG/2 ML VIAL ONE; -REGADENOSON 0.4 MG/5 ML SYR IV ONE
[2023-06-01 19:02] LABS: Absolute Lymphocytes (CBC) 1.3 K/uL (0.7-4.9); Hematocrit 41.2 % (36.0-45.0); MCV 81.5 fL (80-100); MPV 7.3 fL (7.6-11.3); Platelets 194 thou/uL (152-406); RBC Red Blood Cell Count 5.05 M/uL (3.86-4.86)
[2023-06-01 19:32] LABS: Albumin 3.7 g/dL (3.4-5.0); Bilirubin Total 0.8 mg/dL (0.2-1.0); Protein, Total 7.9 g/dL (6.4-8.2)
[2023-06-01 19:33] LABS: Potassium 4.2 mEq/L (3.5-5.1)
--- NOTE | 2023-06-01 21:03 | RAD REPORT ---
EXAM DESCRIPTION: CT - Abdomen Pelvis Wo Contrast - 06/01/2023 8:48 pm CLINICAL HISTORY: Abdominal pain COMPARISON: February 2023 TECHNIQUE: Computed axial tomography of the abdomen and pelvis was obtained. IV and oral contrast we re not requested. All CT scans are performed using dose optimization technique as appropriate and may include automated exposure control or mA/KV adjustment according to patient size. FINDINGS: The evaluation of solid organs, vessels and bowel is limited secondary to the lack of con trast administration. The liver, spleen, pancreas and adrenals grossly normal Bilateral renal cysts No evidence diverticulitis. . Cholecystectomy. No adnexal mass IMPRESSION: No acute abnormality is displayed.
--- NOTE | 2023-06-01 21:03 | RAD REPORT ---
EXAM DESCRIPTION: Patrick Single View06/01/2023 7:29 pm CLINICAL HISTORY: Chest pain COMPARISON: March 2023 FINDINGS: The lungs appear clear of acute infiltrate. The heart is mildly to moderately enlarged IMPRESSION: No acute abnormalities displayed
--- NOTE | 2023-06-01 21:11 | EDPHYS ---
Physician Documentation [facility] Name: Marjan Kolb Age: 68 yrs Sex: Female : 1955 Arrival Date: 06/01/2023 Time: 18:19 Bed 20 Private MD: ED Physician Heladio Collins HPI: 06/01 21:09 This 68 yrs old Female presents to ER via Ambulatory with complaints of Abd Pain > 50 kb y/o. 21:09 Pt is a 68 year old female who presents for diffuse abd pain with nausea and diarrhea kb that started this afternoon. Denies fever. . Historical: - Allergies: 18:32 Azithromycin; ll1 18:32 Bactrim; ll1 18:32 butorphanol; ll1 18:32 Fentanyl; ll1 18:32 Reglan; ll1 18:32 Sulfa (Sulfonamide Antibiotics); ll1 18:32 TRIMETHOPRIM; ll1 - PMHx: 18:32 angina pectoris; Anxiety; Atrial fibrillation; Bipolar disorder; esophageal varicies; ll1 Hepatitis; HIV positive; Hypertensive disorder; Migraine; panic attack; - PSHx: 18:32 Appendectomy; Cholecystectomy; ll1 - Immunization history:: Adult Immunizations up to date. - Social history:: Smoking status: Patient reports the use of cigarette tobacco products, smokes one pack cigarettes per day. ROS: 21:07 Constitutional: Negative for fever, chills, and weight loss, kb 21:07 Abdomen/GI: Positive for abdominal pain, nausea, vomiting, and diarrhea, 21:07 All other systems are negative, 21:08 Respiratory: Positive for shortness of breath, kb Exam: 21:07 Constitutional: This is a well developed, well nourished patient who is awake, alert, kb and in no acute distress. Head/Face: Normocephalic, atraumatic. ENT: Moist Mucous membranes Cardiovascular: Regular rate Respiratory: Respirations even and unlabored. No increased work of breathing. Talking in full sentences Skin: Warm, dry with normal turgor. Normal color. MS/ Extremity: Pulses equal, no cyanosis. Neurovascular intact. Full, normal range of motion. Neuro: Awake and alert, GCS 15, oriented to person, place, time, and situation. Moves all extremities. Normal gait. 21:07 Abdomen/GI: Inspection: abdomen appears normal, Bowel sounds: normal, Palpation: soft, in all quadrants, mild abdominal tenderness, moderate abdominal tenderness, in all quadrants, Vital Signs: 18:36 BP 139 / 88; Pulse 59; Resp 18; Temp 97.6; Pulse Ox 95% on R/A; Weight 78.02 kg; Height db 5 ft. 4 in. ; 18:36 BP 139 / 88; Pulse 59; Resp 18; Temp 97.6; Pulse Ox 95% on R/A; db 20:00 BP 187 / 88; Pulse 52; Resp 17; Pulse Ox 93% ; nj1 21:06 BP 175 / 99; Pulse 61; Pulse Ox 94% on R/A; ap3 18:36 Body Mass Index 29.52 (78.02 kg, 162.56 cm) db MDM: 18:30 Patient medically screened. kb 21:09 Differential diagnosis: gastritis, non-specific abd pain, pancreatitis. Data reviewed: kb vital signs, nurses notes. Counseling: I had a detailed discussion with the patient and/or guardian regarding the historical points, exam findings, and any diagnostic results supporting the discharge/admit diagnosis, lab results, radiology results, the need for outpatient follow up, a family practitioner, to return to the emergency department if symptoms worsen or persist or if there are any questions or concerns that arise at home. 06/01 18:37 Order name: CBC with Diff kb 06/01 18:37 Order name: CMP; Complete Time: 19:34 kb 06/01 18:37 Order name: Lipase; Complete Time: 19:34 kb 06/01 18:37 Order name: Chest Single View XRAY; Complete Time: 21:04 kb 06/01 20:48 Order name: Abdomen ; Complete Time: 21:04 EDMS 06/01 18:37 Order name: IV Saline Lock; Complete Time: 19:49 kb 06/01 18:37 Order name: Labs collected and sent; Complete Time: 19:49 kb Administered Medications: 19:40 Drug: Ondansetron IVP 4 mg IVP once; over 2 minutes Route: IVP; Site: right antecubital;nj1 21:17 Follow up: Response: No adverse reaction; Nausea is decreased ap3 19:42 Drug: diphenhydrAMINE IVP 12.5 mg IVP once Route: IVP; Site: right antecubital; nj1 21:17 Follow up: Response: No adverse reaction ap3 19:43 Drug: morphine IVP or IV 2 mg IVP once over 4 mins Route: IVP; Infused Over: 4 mins; nj1 Site: right antecubital; 21:17 Follow up: Response: No adverse reaction; Pain is unchanged, physician notified ap3 21:17 Drug: morphine IVP or IV 2 mg IVP once over 4 mins Route: IVP; Infused Over: 4 mins; ap3 Site: right upper arm; 21:27 Follow up: Response: No adverse reaction; Pain is decreased ap3 Disposition Summary: 06/01/23 21:10 Discharge Ordered Notes: Location: Home kb Condition: Stable kb Diagnosis - Abdominal pain, Generalized kb Followup: kb - With: Emergency Department - When: As needed - Reason: Worsening of condition Followup: kb - With: Private Physician - When: 2 - 3 days - Reason: Recheck today's complaints, Continuance of care, Re-evaluation by your physician Discharge Instructions: - Discharge Summary Sheet kb - Abdominal Pain, Adult, [id number] kb Forms: - Medication Reconciliation Form kb - Thank You Letter kb - Antibiotic Education kb - Prescription Opioid Use kb - Patient Portal Instructions kb - Leadership Thank You Letter kb Signatures: Dispatcher [employer] EDMS Rosemary Cespedes, JOSE M-C MANAGER DISH-Danielle Jones, RN RN ap3 Yanira De Jesus, RN RN ll1 Alejandrina Fairchild, RN RN db Aracely Sims, ASHLEY RN nj1 Corrections: (The following items were deleted from the chart) 20:48 18:38 Abdomen Pelvis W Con+CT.RAD.BRZ ordered. EDMS EDMS
--- NOTE | 2023-06-01 21:11 | ER ---
Nurse's Notes [facility] Name: Marjan Kolb Age: 68 yrs Sex: Female : 1955 Arrival Date: 06/01/2023 Time: 18:19 Bed 20 Private MD: Diagnosis: Abdominal pain, Generalized Presentation: 06/01 18:34 Chief complaint: Patient states: ABDOMINAL PAIN AND SOB. Coronavirus screen: Vaccine db status: Patient reports receiving the 2nd dose of the covid vaccine. Client denies travel out of the [place] in the last 14 days. At this time, the client does not indicate any symptoms associated with coronavirus-19. Ebola Screen: Patient negative for fever greater than or equal to 101.5 degrees Fahrenheit, and additional compatible Ebola Virus Disease symptoms Patient denies exposure to infectious person. Patient denies travel to an Ebola-affected area in the 21 days before illness onset. No symptoms or risks identified at this time. Initial Sepsis Screen: Does the patient meet any 2 criteria? No. Patient's initial sepsis screen is negative. Does the patient have a suspected source of infection? No. Patient's initial sepsis screen is negative. Risk Assessment: Do you want to hurt yourself or someone else? Patient reports no desire to harm self or others. Onset of symptoms was June 01, 2023. 18:34 Method Of Arrival: Ambulatory db 18:34 Acuity: BLAYNE 3 db Triage Assessment: 18:34 General: Appears in no apparent distress. comfortable, Behavior is calm, cooperative. db Pain: Complains of pain in abdomen. Neuro: Level of Consciousness is awake, alert, obeys commands, Oriented to person, place, time, situation. Respiratory: Airway is patent Respiratory effort is even, unlabored, Respiratory pattern is regular, symmetrical. GI: Abdomen is non-distended. Historical: - Allergies: 18:32 Azithromycin; ll1 18:32 Bactrim; ll1 18:32 butorphanol; ll1 18:32 Fentanyl; ll1 18:32 Reglan; ll1 18:32 Sulfa (Sulfonamide Antibiotics); ll1 18:32 TRIMETHOPRIM; ll1 - PMHx: 18:32 angina pectoris; Anxiety; Atrial fibrillation; Bipolar disorder; esophageal varicies; ll1 Hepatitis; HIV positive; Hypertensive disorder; Migraine; panic attack; - PSHx: 18:32 Appendectomy; Cholecystectomy; ll1 - Immunization history:: Adult Immunizations up to date. - Social history:: Smoking status: Patient reports the use of cigarette tobacco products, smokes one pack cigarettes per day. Screenin:52 [facility] ED Fall Risk Assessment (Adult) Score/Fall Risk Level 0 - 2 = Low Risk nj1 Oriented to surroundings, Maintained a safe environment, Hourly rounding (assess needs \T\ fall precautionary measures) done. Abuse screen: Denies threats or abuse. Denies injuries from another. Nutritional screening: No deficits noted. Tuberculosis screening: No symptoms or risk factors identified. Assessment: 19:40 General: Appears in no apparent distress. uncomfortable, Behavior is calm, cooperative, nj1 appropriate for age. 19:40 Pain: Complains of pain in abdomen Pain currently is 9 out of 10 on a pain scale. nj1 Neuro: Level of Consciousness is awake, alert, obeys commands, Oriented to person, place, time, situation. Cardiovascular: Patient's skin is warm and dry. Respiratory: Airway is patent Respiratory effort is even, unlabored. GI: Reports lower abdominal pain, upper abdominal pain, diarrhea, nausea. Derm: Reports itching, Left foot. 21:06 Reassessment: Patient and/or family updated on plan of care and expected duration. Pain ap3 level reassessed. Patient is alert, oriented x 3, equal unlabored respirations, skin warm/dry/pink. 21:28 GI: Bowel sounds present X 4 quads. Abd is soft. ap3 Vital Signs: 18:36 BP 139 / 88; Pulse 59; Resp 18; Temp 97.6; Pulse Ox 95% on R/A; Weight 78.02 kg; Height db 5 ft. 4 in. ; 18:36 BP 139 / 88; Pulse 59; Resp 18; Temp 97.6; Pulse Ox 95% on R/A; db 20:00 BP 187 / 88; Pulse 52; Resp 17; Pulse Ox 93% ; nj1 21:06 BP 175 / 99; Pulse 61; Pulse Ox 94% on R/A; ap3 18:36 Body Mass Index 29.52 (78.02 kg, 162.56 cm) db ED Course: 18:25 Patient arrived in ED. ae5 18:30 Roseamry Cespedes FNP-C is PHCP. kb 18:30 Heladio Collins MD is Attending Physician. kb 18:32 Arm band placed on. ll1 18:35 Triage completed. db 18:55 Initial lab(s) drawn, by me, sent to lab. Missed attempt(s): 22 gauge in right db antecubital area. Bleeding controlled, band aid applied, catheter tip intact. 19:12 Aracely Sims, RN is Primary Nurse. nj1 19:31 Chest Single View XRAY In Process Unspecified. EDMS 19:40 Inserted saline lock: 20 gauge in right antecubital area, using aseptic technique. nj1 ,using aseptic technique. Ultrasound guided. Catheter tip well visualized within vasculature during placement. Blood collected. 19:52 Patient has correct armband on for positive identification. Bed in low position. Call nj1 light in reach. Provided Education on: call light, fall precautions. 20:48 Abdomen In Process Unspecified. EDMS 21:28 No provider procedures requiring assistance completed. IV discontinued, intact, ap3 bleeding controlled, No redness/swelling at site. Pressure dressing applied. Administered Medications: 19:40 Drug: Ondansetron IVP 4 mg IVP once; over 2 minutes Route: IVP; Site: right antecubital;nj1 21:17 Follow up: Response: No adverse reaction; Nausea is decreased ap3 19:42 Drug: diphenhydrAMINE IVP 12.5 mg IVP once Route: IVP; Site: right antecubital; nj1 21:17 Follow up: Response: No adverse reaction ap3 19:43 Drug: morphine IVP or IV 2 mg IVP once over 4 mins Route: IVP; Infused Over: 4 mins; nj1 Site: right antecubital; 21:17 Follow up: Response: No adverse reaction; Pain is unchanged, physician notified ap3 21:17 Drug: morphine IVP or IV 2 mg IVP once over 4 mins Route: IVP; Infused Over: 4 mins; ap3 Site: right upper arm; 21:27 Follow up: Response: No adverse reaction; Pain is decreased ap3 Medication: 21:28 VIS not applicable for this client. ap3 Outcome: 21:10 Discharge ordered by . kb 21:28 Discharged to home via wheelchair, with family, ap3 21:28 Condition: good 21:28 Discharge instructions given to patient, Instructed on discharge instructions, follow up and referral plans. Demonstrated understanding of instructions, follow-up care, 21:28 Patient left the ED. ap3 Signatures: Dispatcher [employer] EDRosemary Turner, PARIS SALGUERO-Danielle Jones RN RN ap3 Yanira De Jesus RN RN ll1 Alejandrina Fairchild RN RN db Aracely Sims RN RN nj1 Tari Malhotra ae5
[2023-06-01 21:55] LABS: Blood Morphology Comment NOT SEEN (NOT SEEN); Platelet Estimate ADEQ; White Blood Cell Scan OK (OK)
[2023-06-02 01:45] VITALS: BP 175/99; TEMP 97.6; O2SAT 94
== END ==
LOC: ER 18:19
DX: R10.84 Generalized abdominal pain (principal); R06.02 Shortness of breath; R11.0 Nausea; I10 Essential (primary) hypertension; F41.9 Anxiety disorder, unspecified; F17.210 Nicotine dependence, cigarettes, uncomplicated; Z88.1 Allergy status to other antibiotic agents; Z88.2 Allergy status to sulfonamides; Z88.3 Allergy status to other anti-infective agents; Z88.8 Allergy status to other drugs, medicaments and biological substances; Z21 Asymptomatic human immunodeficiency virus [HIV] infection status
CPT/HCPCS: 85025; 36415; 83690; 80053; 74176; 71045; J1200; J2270 ×2; J2405

== ENCOUNTER → 2023-06-03 | Emergency (ER) | payer OTHER ==
[~2023-06-03] MED LIST changes: +DICYCLOMINE HCL 20 MG/2 ML AMP IM ONE; +METHYLPREDNISOLONE 125 MG INJ ONE; -MORPHINE 2 MG/ML SYR ONE; -ONDANSETRON 4 MG/2 ML VIAL ONE
[2023-06-03 18:30] LABS: Absolute Lymphocytes (CBC) 0.9 K/uL (0.7-4.9); Hematocrit 35.6 % (36.0-45.0); Lymphocytes % 23.5 % (15.3-44.8); MCV 81.6 fL (80-100); MPV 6.9 fL (7.6-11.3); Platelets 135 thou/uL (152-406); RBC Red Blood Cell Count 4.37 M/uL (3.86-4.86)
[2023-06-03 18:45] LABS: Albumin 3.4 g/dL (3.4-5.0); Bilirubin Total 0.5 mg/dL (0.2-1.0); Potassium 3.5 mEq/L (3.5-5.1); Protein, Total 7.3 g/dL (6.4-8.2)
[2023-06-03 19:44] LABS: Specific Gravity 1.024 (1.005-1.030); Urine Bacteria None Seen /HPF (<20); Urine Bilirubin NEGATIVE (Negative); Urine Blood Negative (Negative); Urine Clarity Clear (Clear); Urine Color Light-Yellow (Yellow); Urine Glucose NEGATIVE (Negative); Urine Mucus Slight /HPF (None Seen); Urine Protein TRACE (Negative); Urine RBC <5 /HPF (None Seen); Urine Urobilinogen Normal (Normal)
--- NOTE | 2023-06-03 20:06 | EDPHYS ---
Physician Documentation [facility] Name: Marjan Kolb Age: 68 yrs Sex: Female : 1955 Arrival Date: 06/03/2023 Time: 16:02 Bed 15 Private MD: Lele Rahman H ED Physician Yayo August HPI: 06/03 18:00 This 68 yrs old Female presents to ER via EMS with complaints of Abdominal Pain, cp Vomiting. 18:00 The patient presents with abdominal pain in the lower abdomen. Onset: The cp symptoms/episode began/occurred today. The symptoms do not radiate. Associated signs and symptoms: Pertinent positives: nausea and vomiting, Pertinent negatives: constipation, diarrhea, fever, vomiting blood. Severity of pain: in the emergency department the pain is unchanged despite EMS interventions. The patient has experienced similar episodes in the past, multiple times. Historical: - Allergies: 16:57 Azithromycin; aa5 16:57 Bactrim; aa5 16:57 butorphanol; aa5 16:57 Fentanyl; aa5 16:57 Reglan; aa5 16:57 Sulfa (Sulfonamide Antibiotics); aa5 16:57 TRIMETHOPRIM; aa5 - PMHx: 16:57 angina pectoris; Anxiety; Atrial fibrillation; Bipolar disorder; esophageal varicies; aa5 Hepatitis; HIV positive; Hypertensive disorder; Migraine; panic attack; - PSHx: 16:57 Appendectomy; Cholecystectomy; aa5 - Immunization history:: Adult Immunizations unknown. - Social history:: Smoking status: Patient denies any tobacco usage or history of. ROS: 18:05 Constitutional: Negative for body aches, chills, fever, poor PO intake, cp 18:05 Eyes: Negative for injury, pain, redness, and discharge, cp 18:05 ENT: Negative for drainage from ear(s), ear pain, sore throat, difficulty swallowing, difficulty handling secretions, 18:05 Cardiovascular: Negative for chest pain, 18:05 Respiratory: Negative for cough, shortness of breath, wheezing, 18:05 Abdomen/GI: Positive for abdominal pain, nausea and vomiting, Negative for diarrhea, constipation, hematemesis, 18:05 Back: Negative for pain at rest, pain with movement, 18:05 Neuro: Negative for altered mental status, syncope, weakness, 18:05 All other systems are negative, Exam: 18:10 Constitutional: The patient appears in no acute distress, alert, awake, cp non-diaphoretic, non-toxic, well developed, well nourished, 18:10 Head/Face: Normocephalic, atraumatic. cp 18:10 Eyes: Periorbital structures: appear normal, Conjunctiva: normal, no exudate, no injection, Sclera: no appreciated abnormality, Lids and lashes: appear normal, bilaterally, 18:10 ENT: External ear(s): are unremarkable, Nose: is normal, Mouth: Lips: moist, Oral mucosa: pink and intact, moist, Posterior pharynx: is normal, airway is patent, no erythema, no exudate, 18:10 Chest/axilla: Inspection: normal, 18:10 Cardiovascular: Rate: bradycardic, Rhythm: regular, 18:10 Respiratory: the patient does not display signs of respiratory distress, Respirations: normal, no use of accessory muscles, no retractions, labored breathing, is not present, Breath sounds: are clear throughout, no decreased breath sounds, no stridor, no wheezing, 18:10 Abdomen/GI: Inspection: abdomen appears normal, Bowel sounds: active, all quadrants, Palpation: soft, in all quadrants, mild abdominal tenderness, in the right lower quadrant and left lower quadrant, 18:10 Back: pain, is absent, ROM is normal, Vital Signs: 16:13 BP 170 / 88; Pulse 52; Resp 18 S; Temp 97.6(TE); Pulse Ox 96% on R/A; Weight 78.93 kg aa5 (R); Height 5 ft. 4 in. (R); 18:32 Pulse 67; Resp 18; Pulse Ox 95% on R/A; mb9 20:27 BP 132 / 102; Pulse 62; Resp 18; Pulse Ox 100% ; mb9 16:13 Body Mass Index 29.87 (78.93 kg, 162.56 cm) aa5 MDM: 16:58 Patient medically screened. cp 20:05 Data reviewed: vital signs, nurses notes, lab test result(s). cp 20:05 Differential diagnosis: gastritis, non-specific abd pain, Ureterolithiasis, urinary cp tract infection, drug seeking behavior. Counseling: I had a detailed discussion with the patient and/or guardian regarding the historical points, exam findings, and any diagnostic results supporting the discharge/admit diagnosis, lab results, to return to the emergency department if symptoms worsen or persist or if there are any questions or concerns that arise at home. Response to treatment: the patient's symptoms have markedly improved after treatment, and as a result, I will discharge patient. Special discussion: Based on the patient's Hx, exam, and Dx evaluation, there is no indication for emergent surgery or inpatient Tx. It is understood by the patient/guardian that if the Sx's persist or worsen they need to return immediately for re-evaluation. ED course: VSS. No vomiting observed while monitoring patient. Labs reviewed. Patient seen in this ED multiple times with similar complaints. Will discharge to home for continued monitoring. 06/03 17:34 Order name: CBC with Diff; Complete Time: 18:36 cp 06/03 19:45 Interpretation: Normal except: WBC 3.90; HGB 11.7; HCT 35.6; MCH 26.7; PLT 135; RDW cp 17.2; MPV 6.9. 06/03 17:34 Order name: CMP; Complete Time: 19:36 cp 06/03 17:34 Order name: Lipase; Complete Time: 19:36 cp 06/03 17:34 Order name: Urinalysis w/ reflexes; Complete Time: 19:45 cp 06/03 17:34 Order name: IV Saline Lock; Complete Time: 18:31 cp 06/03 17:34 Order name: Labs collected and sent; Complete Time: 18:31 cp 06/03 19:37 Order name: PO challenge; Complete Time: 19:49 cp Administered Medications: 18:48 Drug: MethylPrednisoLONE IVP 125 mg IVP once Route: IVP; Site: left forearm; mb9 20:27 Follow up: Response: No adverse reaction mb9 18:53 Drug: diphenhydrAMINE IVP 50 mg IVP once Route: IVP; Site: left forearm; mb9 20:27 Follow up: Response: No adverse reaction mb9 19:49 Drug: Dicyclomine IM 20 mg IM once Route: IM; Site: right deltoid; mb9 20:27 Follow up: Response: No adverse reaction mb9 Disposition Summary: 06/03/23 20:06 Discharge Ordered Notes: Location: Home cp Problem: new cp Symptoms: have improved cp Condition: Stable cp Diagnosis - Lower abdominal pain, unspecified cp - Vomiting cp - Rash and other nonspecific skin eruption cp Followup: cp - With: Private Physician - When: 2 - 3 days - Reason: Recheck today's complaints Discharge Instructions: - Discharge Summary Sheet cp - Abdominal Pain, Adult cp - Hives cp - Vomiting, Adult cp Forms: - Medication Reconciliation Form cp - Thank You Letter cp - Antibiotic Education cp - Prescription Opioid Use cp - Patient Portal Instructions cp - Leadership Thank You Letter cp Prescriptions: - promethazine 25 mg Oral Tablet - take 1 tablet ORAL route every 6 hours As needed; 20 tablet; Refills: 0, cp Product Selection Permitted Addendum: 06/06/2023 20:28 I was immediately available for consultation during this patient's visit. I did not e c2 personally see the patient or discuss the patient with the FUENTES. . Signatures: Dispatcher [employer] Lindsay Santiago RN RN aa5 Justus Neil PA PA cp Breneman, Mary Beth RN RN mb9 Yayo August MD MD ec2
--- NOTE | 2023-06-03 20:06 | ER ---
Nurse's Notes [facility] Name: Marjan Kolb Age: 68 yrs Sex: Female : 1955 Arrival Date: 06/03/2023 Time: 16:02 Bed 15 Private MD: Lele Rahman H Diagnosis: Lower abdominal pain, unspecified;Vomiting;Rash and other nonspecific skin eruption Presentation: 06/03 16:13 Chief complaint: EMS states: abd pain and vomiting/diarrhea that began 1 week ago and aa5 worse today. Pt reports she has appointment with Dr. Vincent (GI). 16:13 Method Of Arrival: EMS: [facility] aa5 16:13 Acuity: BLAYNE 3 aa5 16:13 Coronavirus screen: diarrhea, vomiting. Ebola Screen: Patient denies travel to an aa5 Ebola-affected area in the 21 days before illness onset. Initial Sepsis Screen: Does the patient meet any 2 criteria? No. Patient's initial sepsis screen is negative. Does the patient have a suspected source of infection? No. Patient's initial sepsis screen is negative. Risk Assessment: Do you want to hurt yourself or someone else? Patient reports no desire to harm self or others. Onset of symptoms was May 2023. Historical: - Allergies: 16:57 Azithromycin; aa5 16:57 Bactrim; aa5 16:57 butorphanol; aa5 16:57 Fentanyl; aa5 16:57 Reglan; aa5 16:57 Sulfa (Sulfonamide Antibiotics); aa5 16:57 TRIMETHOPRIM; aa5 - PMHx: 16:57 angina pectoris; Anxiety; Atrial fibrillation; Bipolar disorder; esophageal varicies; aa5 Hepatitis; HIV positive; Hypertensive disorder; Migraine; panic attack; - PSHx: 16:57 Appendectomy; Cholecystectomy; aa5 - Immunization history:: Adult Immunizations unknown. - Social history:: Smoking status: Patient denies any tobacco usage or history of. Screenin:12 [facility] ED Fall Risk Assessment (Adult) History of falling in the last 3 months, mb9 including since admission No falls in past 3 months (0 pts) Confusion or Disorientation No (0 pts) Intoxicated or Sedated No (0 pts) Impaired Gait No (0 pts) Mobility Assist Device Used No (0 pt) Altered Elimination No (0 pt) Score/Fall Risk Level 0 - 2 = Low Risk Oriented to surroundings, Maintained a safe environment, Educated pt \T\ family on fall prevention, incl call for assistance when getting out of bed. Abuse screen: Denies threats or abuse. Nutritional screening: No deficits noted. Tuberculosis screening: No symptoms or risk factors identified. Assessment: 18:11 Reassessment: pt taken to ER room. mb9 18:31 General: Appears in no apparent distress. Behavior is calm, cooperative, appropriate mb9 for age. Pain: Complains of pain in abdomen Pain does not radiate. Pain currently is 9 out of 10 on a pain scale. Quality of pain is described as throbbing. Neuro: Gonzalez Agitation-Sedation Scale (RASS): 0 - Alert and Calm Level of Consciousness is awake, alert, obeys commands, Oriented to person, place, time, situation, Appropriate for age. Cardiovascular: Patient's skin is warm and dry. Respiratory: Airway is patent Respiratory effort is even, unlabored, Respiratory pattern is regular, symmetrical. GI: Abdomen is round non-distended, Bowel sounds present X 4 quads. Abd is soft Abdomen is tender to palpation X 4 quads. Reports nausea. : No signs and/or symptoms were reported regarding the genitourinary system. EENT: No signs and/or symptoms were reported regarding the EENT system. Derm: Skin is pink, warm \T\ dry. Musculoskeletal: Range of motion: intact in all extremities. 19:49 Reassessment: Patient and/or family updated on plan of care and expected duration. Pain mb9 level reassessed. Patient is alert, oriented x 3, equal unlabored respirations, skin warm/dry/pink. Patient states symptoms have not improved. Vital Signs: 16:13 BP 170 / 88; Pulse 52; Resp 18 S; Temp 97.6(TE); Pulse Ox 96% on R/A; Weight 78.93 kg aa5 (R); Height 5 ft. 4 in. (R); 18:32 Pulse 67; Resp 18; Pulse Ox 95% on R/A; mb9 20:27 BP 132 / 102; Pulse 62; Resp 18; Pulse Ox 100% ; mb9 16:13 Body Mass Index 29.87 (78.93 kg, 162.56 cm) aa5 ED Course: 16:03 Patient arrived in ED. rg4 16:03 Lacey UrmilaBibianaFranciscoDO is Private Physician. rg4 16:04 [facility] Neil [facility]. cp 16:04 Yayo August MD is Attending Physician. cp 16:13 Triage completed. aa5 16:13 Arm band placed on. aa5 18:02 Jessie Cristina, ASHLEY is Primary Nurse. mb9 18:12 Placed in gown. Bed in low position. Call light in reach. Side rails up X 1. Client mb9 placed on continuous cardiac and pulse oximetry monitoring. NIBP monitoring applied. 18:13 No provider procedures requiring assistance completed. mb9 18:31 Lipase Sent. mb9 20:27 IV discontinued, intact, bleeding controlled, No redness/swelling at site. Pressure mb9 dressing applied. Administered Medications: 18:48 Drug: MethylPrednisoLONE IVP 125 mg IVP once Route: IVP; Site: left forearm; mb9 20:27 Follow up: Response: No adverse reaction mb9 18:53 Drug: diphenhydrAMINE IVP 50 mg IVP once Route: IVP; Site: left forearm; mb9 20:27 Follow up: Response: No adverse reaction mb9 19:49 Drug: Dicyclomine IM 20 mg IM once Route: IM; Site: right deltoid; mb9 20:27 Follow up: Response: No adverse reaction mb9 Medication: 18:13 VIS not applicable for this client. mb9 Outcome: 20:06 Discharge ordered by MD. cp 20:27 Discharged to home via wheelchair, with family, mb9 20:27 Condition: stable 20:27 Discharge instructions given to patient, Instructed on discharge instructions, follow up and referral plans. Demonstrated understanding of instructions, follow-up care, medications, Prescriptions given X 1, 20:28 Patient left the ED. mb9 Signatures: Lindsay Schulz RN RN aa5 Justus Neil PA PA cp Garcia, Rubi rg4 Jessie Cristina RN RN [id number] Corrections: (The following items were deleted from the chart) 16:58 16:13 Chief complaint: EMS states: abd pain and vomiting that began 1 week ago and aa5 worse today. aa5 16:59 16:13 Chief complaint: EMS states: abd pain and vomiting/diarrhea that began 1 week ago aa5 and worse today. aa5
[2023-06-03 23:45] VITALS: BP 132/102; TEMP 97.6; O2SAT 100
== END ==
LOC: ER 16:02
DX: R10.30 Lower abdominal pain, unspecified (principal); R11.2 Nausea with vomiting, unspecified; R21 Rash and other nonspecific skin eruption; Z21 Asymptomatic human immunodeficiency virus [HIV] infection status; Z88.1 Allergy status to other antibiotic agents; Z88.2 Allergy status to sulfonamides; Z88.3 Allergy status to other anti-infective agents; Z88.5 Allergy status to narcotic agent; Z88.8 Allergy status to other drugs, medicaments and biological substances
CPT/HCPCS: 85025; 81001; 36415; 83690; 80053; 96375; 96372; 96374; 99284; J0500; J1200; J2930

== ENCOUNTER → 2023-06-10 | Emergency (ER) | payer OTHER ==
[~2023-06-10] MED LIST changes: +ALBUTEROL 2.5 MG/3 ML NEB SOL ONE; +CEFTRIAXONE 1000 MG/VIAL ONE; +DICYCLOMINE HCL 10 MG CAP ONE; -DICYCLOMINE HCL 20 MG/2 ML AMP IM ONE; -DIPHENHYDRAMINE 50 MG/ML VIAL ONE; +IPRATROPIUM BROM 0.5MG/2.5ML ONE; +KETOROLAC 30 MG/ML INJ ONE; -METHYLPREDNISOLONE 125 MG INJ ONE; +PHENAZOPYRIDINE 100MG TAB PO ONE; +cloNIDine HCL 0.1 MG TAB ONE
--- NOTE | 2023-06-10 19:02 | RAD REPORT ---
[facility] 6[facility]10 pm CLINICAL HISTORY: SOB COMPARISON: Chest Single View dated 06/01/2023; Chest Single View dated 03/25/2023; Chest Single View dated 02/20/2023; Chest Single View dated 02/14/2023 TECHNIQUE: Portable AP view of the chest. FINDINGS: The lungs are clear. No pneumothorax or effusion. The cardiomediastinal contours are unre markable. IMPRESSION: No acute cardiopulmonary process.
[2023-06-10 19:06] LABS: Absolute Lymphocytes (CBC) 0.9 K/uL (0.7-4.9); Hematocrit 36.4 % (36.0-45.0); Lymphocytes % 18.3 % (15.3-44.8); MCV 80.8 fL (80-100); MPV 7.3 fL (7.6-11.3); Platelets 131 thou/uL (152-406); RBC Red Blood Cell Count 4.51 M/uL (3.86-4.86)
[2023-06-10 19:11] LABS: Specific Gravity 1.019 (1.005-1.030); Urine Bacteria None Seen /HPF (<20); Urine Bilirubin NEGATIVE (Negative); Urine Blood Negative (Negative); Urine Clarity Clear (Clear); Urine Color Light-Yellow (Yellow); Urine Glucose NEGATIVE (Negative); Urine Mucus Slight /HPF (None Seen); Urine Protein TRACE (Negative); Urine Urobilinogen Normal (Normal); Urine pH 6.5 (5.0-7.0)
[2023-06-10 19:31] LABS: Albumin 3.1 g/dL (3.4-5.0); Bilirubin Total 0.4 mg/dL (0.2-1.0); Protein, Total 6.9 g/dL (6.4-8.2)
[2023-06-10 19:34] LABS: Potassium 3.9 mEq/L (3.5-5.1)
--- NOTE | 2023-06-10 20:58 | ER ---
Nurse's Notes [facility] Name: Marjan Kolb Age: 68 yrs Sex: Female : 1955 Arrival Date: 06/10/2023 Time: 17:06 Bed 19 Private MD: Diagnosis: UTI/ Urinary tract infection, site not specified Presentation: 06/10 17:12 Chief complaint: Patient states: SOB since this morning with abdominal pain. ap3 Coronavirus screen: Vaccine status: Patient reports being unvaccinated. Client denies travel out of the [place] in the last 14 days. Ebola Screen: Patient negative for fever greater than or equal to 101.5 degrees Fahrenheit, and additional compatible Ebola Virus Disease symptoms Patient denies exposure to infectious person. Patient denies travel to an Ebola-affected area in the 21 days before illness onset. Initial Sepsis Screen: Does the patient meet any 2 criteria? No. Patient's initial sepsis screen is negative. Does the patient have a suspected source of infection? No. Patient's initial sepsis screen is negative. Risk Assessment: Do you want to hurt yourself or someone else? Patient reports no desire to harm self or others. Onset of symptoms was June 10, 2023 at 09:00. 17:12 Method Of Arrival: Ambulatory ap3 17:12 Acuity: BLAYNE 2 ap3 Triage Assessment: 17:13 General: Appears uncomfortable, Behavior is calm, cooperative. Pain: Complains of pain ap3 in abdomen Pain does not radiate. Pain currently is 9 out of 10 on a pain scale. GI: Reports bloating. Historical: - Allergies: 17:13 Azithromycin; ap3 17:13 Bactrim; ap3 17:13 butorphanol; ap3 17:13 Fentanyl; ap3 17:13 Reglan; ap3 17:13 Sulfa (Sulfonamide Antibiotics); ap3 17:13 TRIMETHOPRIM; ap3 - PMHx: 17:13 angina pectoris; Anxiety; Atrial fibrillation; Bipolar disorder; esophageal varicies; ap3 Hepatitis; HIV positive; Hypertensive disorder; Migraine; panic attack; COPD (Cholecystectomy); - PSHx: 17:13 Appendectomy; Cholecystectomy; ap3 - Immunization history:: Adult Immunizations up to date, Client reports having NOT received the Covid vaccine. Last tetanus immunization: up to date. - Social history:: Smoking status: Patient denies any tobacco usage or history of. Screenin:54 [facility] ED Fall Risk Assessment (Adult) History of falling in the last 3 months, kc6 including since admission Yes- fall prone (multiple falls) (3 pts) Confusion or Disorientation No (0 pts) Intoxicated or Sedated No (0 pts) Impaired Gait No (0 pts) Mobility Assist Device Used No (0 pt) Altered Elimination No (0 pt) Score/Fall Risk Level 0 - 2 = Low Risk. Abuse screen: Denies threats or abuse. Denies injuries from another. Nutritional screening: No deficits noted. Tuberculosis screening: No symptoms or risk factors identified. Assessment: 18:54 General: Appears in no apparent distress. comfortable, well groomed, well developed, kc6 Behavior is calm, cooperative, appropriate for age. Neuro: Level of Consciousness is awake, alert, obeys commands, Oriented to person, place, time, situation, Appropriate for age. Cardiovascular: Capillary refill < 3 seconds. Respiratory: Reports shortness of breath Airway is patent Trachea midline Respiratory effort is even, unlabored, Respiratory pattern is regular, symmetrical. GI: Abdomen is round Bowel sounds present X 4 quads. Abd is soft X 4 quads Reports lower abdominal pain, upper abdominal pain. : No signs and/or symptoms were reported regarding the genitourinary system. EENT: No signs and/or symptoms were reported regarding the EENT system. Derm: No signs and/or symptoms reported regarding the dermatologic system. Skin is intact, is fragile, is thin, with poor turgor Skin is pink, warm \T\ dry. Bruising that is dark purple, on right arm and left arm. Musculoskeletal: No signs and/or symptoms reported regarding the musculoskeletal system. Circulation, motion, and sensation intact. Capillary refill < 3 seconds, Range of motion: intact in all extremities. 19:15 General: Appears in no apparent distress. comfortable, well developed, Behavior is pf1 calm, cooperative, appropriate for age, quiet. 19:15 Pain: Complains of pain in abdomen Pain currently is 7 out of 10 on a pain scale. pf1 Neuro: No deficits noted. Level of Consciousness is awake, alert, obeys commands, Oriented to person, place, time, situation, Appropriate for age. Cardiovascular: No deficits noted. Capillary refill < 3 seconds Patient's skin is warm and dry. Respiratory: Reports shortness of breath at rest on exertion Airway is patent Respiratory effort is even, unlabored, Respiratory pattern is regular, symmetrical. GI: Abdomen is round non-distended, Bowel sounds Abd is soft X 4 quads Reports lower abdominal pain, upper abdominal pain. : Reports urinary frequency. EENT: No deficits noted. No signs and/or symptoms were reported regarding the EENT system. Derm: Bruising that is dark purple, on left arm and right arm. 20:15 Reassessment: Patient appears in no apparent distress at this time. Patient and/or pf1 family updated on plan of care and expected duration. Pain level reassessed. Patient is alert, oriented x 3, equal unlabored respirations, skin warm/dry/pink. 21:00 Reassessment: Patient appears in no apparent distress at this time. Patient and/or pf1 family updated on plan of care and expected duration. Pain level reassessed. Patient is alert, oriented x 3, equal unlabored respirations, skin warm/dry/pink. Patient states symptoms have improved. 21:20 Reassessment: Discharge hold for improvement on BP. pf1 22:00 Reassessment: Patient appears in no apparent distress at this time. Patient and/or pf1 family updated on plan of care and expected duration. Pain level reassessed. Patient is alert, oriented x 3, equal unlabored respirations, skin warm/dry/pink. Patient states feeling better. Patient states symptoms have improved. Vital Signs: 17:12 Weight 79.38 kg; Height 5 ft. 4 in. ; Pain 9/10; ap3 17:13 BP 165 / 85; Pulse 51; Resp 20; Temp 97.9; Pulse Ox 97% ; ap3 19:00 BP 190 / 78; Pulse 52; Resp 16; Pulse Ox 96% on R/A; pf1 20:00 BP 213 / 131; Pulse 50; Resp 16; Pulse Ox 95% ; pf1 21:09 BP 200 / 113; Pulse 50; Resp 16; Pulse Ox 96% ; pf1 21:29 BP 214 / 122; Pulse 65; Resp 18; Pulse Ox 97% on R/A; Pain 7/10; pf1 22:00 BP 155 / 106; Pulse 59; Resp 16; Temp 98; Pulse Ox 97% on R/A; Pain 4/10; pf1 17:12 Body Mass Index 30.04 (79.38 kg, 162.56 cm) ap3 17:12 Pain Scale: Adult ap3 21:29 Pain Scale: Adult pf1 22:00 Pain Scale: Adult pf1 ED Course: 17:09 Patient arrived in ED. mg5 17:13 Triage completed. ap3 17:13 Arm band placed on right wrist. ap3 17:16 Justus Neil PA is PHCP. cp 17:16 Yayo August MD is Attending Physician. cp 18:12 XRAY Chest (1 view) In Process Unspecified. EDMS 18:20 Madyson Mills, ASHLEY is Primary Nurse. kc6 18:41 Missed attempt(s): 24 gauge in right antecubital area. Patient maintains SpO2 kc6 saturation greater than 95% on room air. 18:54 Patient has correct armband on for positive identification. Bed in low position. Call kc6 light in reach. Side rails up X 1. Client placed on continuous cardiac and pulse oximetry monitoring. NIBP monitoring applied. 18:54 Inserted saline lock: 22 gauge in right antecubital area, using aseptic technique. kc6 ,using aseptic technique. by Sue Neri RN Blood collected. 22:13 No provider procedures requiring assistance completed. IV discontinued, intact, pf1 bleeding controlled, No redness/swelling at site. Pressure dressing applied. 22:15 Provided Education on: prescriptions. pf1 Administered Medications: 20:58 Drug: Albuterol Inhalation 2.5 mg Inhalation once Route: Inhalation; pf1 21:50 Follow up: Response: No adverse reaction; Marked relief of symptoms pf1 20:58 Drug: Ipratropium Inhalation Aerosol 0.5 mg Inhalation once Route: Inhalation; pf1 21:50 Follow up: Response: No adverse reaction; Marked relief of symptoms pf1 20:58 Drug: Rocephin IV 1 grams IV at calculated rate once; Given slow IV push per pharmacy pf1 instructions Route: IV; Rate: calculated rate; Site: right antecubital; 21:50 Follow up: Response: No adverse reaction; IV Status: Completed infusion; IV Intake: [id number] 21:08 Drug: Ketorolac IVP 15 mg IVP once Route: IVP; Site: right antecubital; pf1 22:00 Follow up: Response: No adverse reaction; Marked relief of symptoms; Pain is decreased pf1 21:08 Drug: Dicyclomine PO 20 mg PO once Route: PO; pf1 22:00 Follow up: Response: No adverse reaction; Marked relief of symptoms pf1 21:08 Drug: Phenazopyridine PO 200 mg PO once Route: PO; pf1 22:00 Follow up: Response: No adverse reaction; Marked relief of symptoms pf1 21:27 Drug: cloNIDine PO 0.2 mg PO once Route: PO; pf1 22:14 Follow up: Response: No adverse reaction; Marked relief of symptoms; Blood pressure is pf1 lowered Medication: 22:15 VIS not applicable for this client. pf1 Intake: 21:50 IV: 10ml; Total: 10ml. pf1 Outcome: 20:58 Discharge ordered by MD. cp 22:15 Discharged to home ambulatory, pf1 22:15 Condition: improved 22:15 Discharge instructions given to patient, Instructed on discharge instructions, follow up and referral plans. Demonstrated understanding of instructions, follow-up care, medications, Prescriptions given X 2, 22:15 Patient left the ED. pf1 Signatures: Dispatcher [employer] EDMS Justus Neil PA PA cp Prokisch, Amanda RN RN ap3 Madyson Mills RN RN kc6 Kay Castrejon RN RN pf1 Connie Mares 5
--- NOTE | 2023-06-10 20:58 | EDPHYS ---
Physician Documentation [facility] Name: Marjan Kolb Age: 68 yrs Sex: Female : 1955 Arrival Date: 06/10/2023 Time: 17:06 Bed 19 Private MD: ED Physician Yayo August HPI: 06/10 18:00 This 68 yrs old Female presents to ER via Ambulatory with complaints of Abdominal Pain, cp COPD Exacerbation. 18:00 The patient presents with abdominal pain in the lower abdomen. Onset: The cp symptoms/episode began/occurred today. Associated signs and symptoms: Pertinent positives: shortness of breath, Pertinent negatives: blood in stools, chest pain, constipation, diarrhea, fever, vomiting. The symptoms are described as constant. The patient has experienced similar episodes in the past, multiple times, patient seen in this ED often with c/o abdominal pain and has had multiple CTs in the past. patient with frequent request for narcotic pain meds. Historical: - Allergies: 17:13 Azithromycin; ap3 17:13 Bactrim; ap3 17:13 butorphanol; ap3 17:13 Fentanyl; ap3 17:13 Reglan; ap3 17:13 Sulfa (Sulfonamide Antibiotics); ap3 17:13 TRIMETHOPRIM; ap3 - PMHx: 17:13 angina pectoris; Anxiety; Atrial fibrillation; Bipolar disorder; esophageal varicies; ap3 Hepatitis; HIV positive; Hypertensive disorder; Migraine; panic attack; COPD (Cholecystectomy); - PSHx: 17:13 Appendectomy; Cholecystectomy; ap3 - Immunization history:: Adult Immunizations up to date, Client reports having NOT received the Covid vaccine. Last tetanus immunization: up to date. - Social history:: Smoking status: Patient denies any tobacco usage or history of. ROS: 18:05 Constitutional: Negative for body aches, chills, fever, poor PO intake, cp 18:05 Eyes: Negative for injury, pain, redness, and discharge, cp 18:05 ENT: Negative for drainage from ear(s), ear pain, sore throat, difficulty swallowing, difficulty handling secretions, 18:05 Cardiovascular: Negative for chest pain, edema, palpitations, 18:05 Respiratory: Positive for shortness of breath, Negative for wheezing, 18:05 Abdomen/GI: Positive for abdominal pain, Negative for vomiting, diarrhea, constipation, 18:05 Neuro: Negative for altered mental status, headache, weakness, 18:05 All other systems are negative, Exam: 18:10 Constitutional: The patient appears in no acute distress, alert, awake, cp non-diaphoretic, non-toxic, well developed, well nourished, 18:10 Head/Face: Normocephalic, atraumatic. cp 18:10 Eyes: Periorbital structures: appear normal, Conjunctiva: normal, no exudate, no injection, Sclera: no appreciated abnormality, Lids and lashes: appear normal, bilaterally, 18:10 ENT: External ear(s): are unremarkable, Nose: is normal, Mouth: Lips: moist, Oral mucosa: pink and intact, moist, Posterior pharynx: is normal, airway is patent, no erythema, no exudate, 18:10 Chest/axilla: Inspection: normal, 18:10 Cardiovascular: Rate: bradycardic, Rhythm: regular, Edema: is not appreciated, JVD: is not appreciated, 18:10 Respiratory: the patient does not display signs of respiratory distress, Respirations: normal, no use of accessory muscles, no retractions, labored breathing, is not present, Breath sounds: are clear throughout, no decreased breath sounds, no stridor, no wheezing, 18:10 Abdomen/GI: Inspection: abdomen appears normal, Bowel sounds: active, all quadrants, Palpation: soft, in all quadrants, moderate abdominal tenderness, in the right lower quadrant and left lower quadrant, rebound tenderness, is not appreciated, involuntary guarding, is not appreciated, 18:10 Back: pain, is absent, ROM is 18:10 Neuro: Orientation: to person, place \T\ time. Mentation: is normal, Motor: moves all fours, strength is normal, Vital Signs: 17:12 Weight 79.38 kg; Height 5 ft. 4 in. ; Pain 9/10; ap3 17:13 BP 165 / 85; Pulse 51; Resp 20; Temp 97.9; Pulse Ox 97% ; ap3 19:00 BP 190 / 78; Pulse 52; Resp 16; Pulse Ox 96% on R/A; pf1 20:00 BP 213 / 131; Pulse 50; Resp 16; Pulse Ox 95% ; pf1 21:09 BP 200 / 113; Pulse 50; Resp 16; Pulse Ox 96% ; pf1 21:29 BP 214 / 122; Pulse 65; Resp 18; Pulse Ox 97% on R/A; Pain 7/10; pf1 22:00 BP 155 / 106; Pulse 59; Resp 16; Temp 98; Pulse Ox 97% on R/A; Pain 4/10; pf1 17:12 Body Mass Index 30.04 (79.38 kg, 162.56 cm) ap3 17:12 Pain Scale: Adult ap3 21:29 Pain Scale: Adult pf1 22:00 Pain Scale: Adult pf1 MDM: 17:16 Patient medically screened. cp 20:57 Data reviewed: vital signs, nurses notes, lab test result(s). cp 20:57 Differential diagnosis: appendicitis, bowel obstruction, non-specific abd pain, cp pancreatitis, Pyelonephritis, Ureterolithiasis, urinary tract infection. I considered the following discharge prescriptions or medication management in the emergency department Medications were administered in the Emergency Department. See MAR. Test considered but Not performed: CT: abdomen/pelvis. Counseling: I had a detailed discussion with the patient and/or guardian regarding the historical points, exam findings, and any diagnostic results supporting the discharge/admit diagnosis, lab results, to return to the emergency department if symptoms worsen or persist or if there are any questions or concerns that arise at home. Special discussion: I discussed with the patient their frequent requests for pain medications. Instructions have been given, that in the best interests of the patient, further pain Rx's must come from the patient's PCP or a crayon painter. Special discussion: Based on the patient's Hx, exam, and Dx evaluation, there is no indication for emergent surgery or inpatient Tx. It is understood by the patient/guardian that if the Sx's persist or worsen they need to return immediately for re-evaluation. 06/10 17:46 Order name: CBC with Diff; Complete Time: 19:50 cp 06/10 20:54 Interpretation: Normal except: MCH 26.6; PLT 131; RDW 17.1; MPV 7.3. cp 06/10 17:46 Order name: CMP; Complete Time: 19:50 cp 06/10 17:46 Order name: Lipase; Complete Time: 19:50 cp 06/10 17:46 Order name: Urinalysis w/ reflexes; Complete Time: 19:16 cp 06/10 19:16 Interpretation: Normal except: UPROT TRACE; UESTR 250; UWBC 10-20; URBC 5-10. cp 06/10 19:17 Order name: Urine Culture EDMS 06/10 17:46 Order name: XRAY Chest (1 view); Complete Time: 19:16 cp 06/10 17:46 Order name: IV Saline Lock; Complete Time: 18:51 cp 06/10 17:46 Order name: Labs collected and sent; Complete Time: 18:51 cp Administered Medications: 20:58 Drug: Albuterol Inhalation 2.5 mg Inhalation once Route: Inhalation; pf1 21:50 Follow up: Response: No adverse reaction; Marked relief of symptoms pf1 20:58 Drug: Ipratropium Inhalation Aerosol 0.5 mg Inhalation once Route: Inhalation; pf1 21:50 Follow up: Response: No adverse reaction; Marked relief of symptoms pf1 20:58 Drug: Rocephin IV 1 grams IV at calculated rate once; Given slow IV push per pharmacy pf1 instructions Route: IV; Rate: calculated rate; Site: right antecubital; 21:50 Follow up: Response: No adverse reaction; IV Status: Completed infusion; IV Intake: [id number] 21:08 Drug: Ketorolac IVP 15 mg IVP once Route: IVP; Site: right antecubital; pf1 22:00 Follow up: Response: No adverse reaction; Marked relief of symptoms; Pain is decreased pf1 21:08 Drug: Dicyclomine PO 20 mg PO once Route: PO; pf1 22:00 Follow up: Response: No adverse reaction; Marked relief of symptoms pf1 21:08 Drug: Phenazopyridine PO 200 mg PO once Route: PO; pf1 22:00 Follow up: Response: No adverse reaction; Marked relief of symptoms pf1 21:27 Drug: cloNIDine PO 0.2 mg PO once Route: PO; pf1 22:14 Follow up: Response: No adverse reaction; Marked relief of symptoms; Blood pressure is pf1 lowered Disposition Summary: 06/10/23 20:58 Discharge Ordered Notes: Location: Home cp Problem: new cp Symptoms: have improved cp Condition: Stable cp Diagnosis - UTI/ Urinary tract infection, site not specified cp Followup: cp - With: Private Physician - When: 2 - 3 days - Reason: Recheck today's complaints Discharge Instructions: - Discharge Summary Sheet cp - Urinary Tract Infection, Adult cp Forms: - Medication Reconciliation Form cp - Thank You Letter cp - Antibiotic Education cp - Prescription Opioid Use cp - Patient Portal Instructions cp - Leadership Thank You Letter cp Prescriptions: - Pyridium 200 mg Oral Tablet - take 1 tablet ORAL route every 8 hours for 3 days; 9 tablet; Refills: 0, cp Product Selection Permitted - cefpodoxime 200 mg Oral tablet - take 1 tablet ORAL route every 12 hours for 7 days with food; 14 tablet; cp Refills: 0, Product Selection Permitted Addendum: 06/13/2023 10:53 I was immediately available for consultation during this patient's visit. I did not e c2 personally see the patient or discuss the patient with the FUENTES. . Signatures: Dispatcher [employer] EDJustus Ugalde PA PA cp Prokisch, Amanda RN RN ap3 Kay Castrejon RN RN pf1 Yayo August MD MD ec2
[2023-06-11 04:22] VITALS: BP 155/106; TEMP 98; O2SAT 97
== END ==
LOC: ER 17:06
DX: N39.0 Urinary tract infection, site not specified (principal); I48.91 Unspecified atrial fibrillation; I10 Essential (primary) hypertension; J44.9 Chronic obstructive pulmonary disease, unspecified; F31.9 Bipolar disorder, unspecified; Z88.1 Allergy status to other antibiotic agents; Z88.2 Allergy status to sulfonamides; Z88.5 Allergy status to narcotic agent; Z88.8 Allergy status to other drugs, medicaments and biological substances; Z21 Asymptomatic human immunodeficiency virus [HIV] infection status
CPT/HCPCS: 96365; 87088; 85025; 81001; 87086; 36415; 83690; 80053; 71045; 96375; 99285; J7613; J7644; J0696

== ENCOUNTER → 2023-06-19 | Emergency (ER) | payer OTHER ==
[~2023-06-19] MED LIST changes: -ALBUTEROL 2.5 MG/3 ML NEB SOL ONE; -CEFTRIAXONE 1000 MG/VIAL ONE; -DICYCLOMINE HCL 10 MG CAP ONE; +DIPHENHYDRAMINE 50 MG/ML VIAL ONE; +HYDRALAZINE HCL 20 MG/ML VIAL ONE; -IPRATROPIUM BROM 0.5MG/2.5ML ONE; -KETOROLAC 30 MG/ML INJ ONE; +MORPHINE 4 MG/ML SYR ONE; +ONDANSETRON 4 MG/2 ML VIAL ONE; -PHENAZOPYRIDINE 100MG TAB PO ONE; +POTASSIUM 25 MEQ EFFERV TAB ONE; -cloNIDine HCL 0.1 MG TAB ONE
[2023-06-19 13:29] LABS: Hematocrit 38.3 % (36.0-45.0); Lymphocytes % 16.9 % (15.3-44.8); MCV 81.7 fL (80-100); MPV 6.8 fL (7.6-11.3); Platelets 148 thou/uL (152-406); RBC Red Blood Cell Count 4.69 M/uL (3.86-4.86)
[2023-06-19 13:50] LABS: Albumin 3.4 g/dL (3.4-5.0); Bilirubin Total 0.6 mg/dL (0.2-1.0); Potassium 2.8 mEq/L (3.5-5.1); Protein, Total 7.1 g/dL (6.4-8.2)
[2023-06-19 13:51] LABS: SARS-CoV-2 Antigen Rapid Res Negative (Negative)
--- NOTE | 2023-06-19 14:58 | RAD REPORT ---
EXAM DESCRIPTION: CTAbdomen Pelvis W Contrast - 06/19/2023 2:45 pm CLINICAL HISTORY: ABD PAIN COMPARISON: Abdomen Pelvis W Contrast dated 06/28/2021; Abdomen Pelvis W Contrast dated 06/21/2021; Abdomen Pelvis W Contrast dated 02/01/2021; Abdomen Pelvis W Contrast dated 07/25/2020 TECHNIQUE: CT of the abdomen and pelvis was performed. All CT scans are performed using dose optimization technique as appropriate and may include automated exposure control or mA/KV adjustment according to patient size. FINDINGS: Lower chest: Cardiomegaly. Liver: Too small to characterize liver lesions which are likely benign. Biliary: Cholecystectomy . Increased extrahepatic biliary duct dilatation compared with 06/28/2021 bu t the common bile duct is similar in caliber to 06/21/2021. . The common bile duct measures 9 millime ters. No radiopaque common bile duct stone identified. No evidence of obstructing mass. Stomach: No significant focal abnormality. Duodenum: No significant focal abnormality. Pancreas: No significant abnormality. Spleen: No significant abnormality. Adrenal: No suspicious lesions. Kidney/ureter: No hydronephrosis. No renal calculi. Too small to characterize and/or benign appearing renal lesions are noted. Retroperitoneum: No retroperitoneal adenopathy. Vascular: No aneurysm. Atherosclerosis. Bowel: Moderate stool noted. No bowel obstruction. No appendicitis.. Peritoneum: No ascites or free air. Bladder: Grossly unremarkable. Reproductive: No adnexal masses. Bones: No acute fracture. Other: n/a IMPRESSION: No acute intra-abdominal or pelvic finding. Incidental findings as noted above.
--- NOTE | 2023-06-19 15:05 | ER ---
Nurse's Notes [facility] Name: Marjan Kolb Age: 68 yrs Sex: Female : 1955 Arrival Date: 06/19/2023 Time: 12:14 Bed 14 Private MD: Lele Rahman H Diagnosis: Abdominal pain, unspecified;Hypokalemia Presentation: 06/19 12:21 Chief complaint: Patient states: generalized abd pain since this morning, pt also c/o aa5 "white rash all over and itching". 12:21 Coronavirus screen: At this time, the client does not indicate any symptoms associated aa5 with coronavirus-19. Ebola Screen: Patient denies travel to an Ebola-affected area in the 21 days before illness onset. Initial Sepsis Screen: Does the patient meet any 2 criteria? No. Patient's initial sepsis screen is negative. Does the patient have a suspected source of infection? No. Patient's initial sepsis screen is negative. Risk Assessment: Do you want to hurt yourself or someone else? Patient reports no desire to harm self or others. Onset of symptoms was June 19, 2023. 12:21 Acuity: BLAYNE 3 aa5 12:21 Method Of Arrival: Ambulatory aa5 Historical: - Allergies: 12:28 Azithromycin; mb9 12:28 Bactrim; mb9 12:28 butorphanol; mb9 12:28 Fentanyl; mb9 12:28 Reglan; mb9 12:28 Sulfa (Sulfonamide Antibiotics); mb9 12:28 TRIMETHOPRIM; mb9 - PMHx: 12:28 angina pectoris; Anxiety; Atrial fibrillation; Bipolar disorder; COPD mb9 (Cholecystectomy); esophageal varicies; Hepatitis; HIV positive; Hypertensive disorder; Migraine; panic attack; - PSHx: 12:28 Appendectomy; Cholecystectomy; mb9 - Immunization history:: Adult Immunizations up to date. - Social history:: Smoking status: Patient/guardian denies using tobacco. Screenin:37 [facility] ED Fall Risk Assessment (Adult) History of falling in the last 3 months, mb9 including since admission No falls in past 3 months (0 pts) Confusion or Disorientation No (0 pts) Intoxicated or Sedated No (0 pts) Impaired Gait No (0 pts) Mobility Assist Device Used No (0 pt) Altered Elimination No (0 pt) Score/Fall Risk Level 0 - 2 = Low Risk Oriented to surroundings, Maintained a safe environment, Educated pt \\T\\ family on fall prevention, incl call for assistance when getting out of bed. Abuse screen: Denies threats or abuse. Nutritional screening: No deficits noted. Tuberculosis screening: No symptoms or risk factors identified. Assessment: 12:35 General: Appears in no apparent distress. Behavior is calm, cooperative. Pain: mb9 Complains of pain in abdomen Pain does not radiate. Pain currently is 10 out of 10 on a pain scale. Quality of pain is described as throbbing, Pain began 2-3 days ago. Is intermittent. Neuro: Gonzalez Agitation-Sedation Scale (RASS): 0 - Alert and Calm Level of Consciousness is awake, alert, obeys commands, Oriented to person, place, time, situation, Appropriate for age. Cardiovascular: Patient's skin is warm and dry. Respiratory: Airway is patent Respiratory effort is even, unlabored, Respiratory pattern is regular, symmetrical, Breath sounds are clear bilaterally. GI: Abdomen is round non-distended, Bowel sounds present X 4 quads. Abd is soft and non tender X 4 quads. : No signs and/or symptoms were reported regarding the genitourinary system. EENT: No signs and/or symptoms were reported regarding the EENT system. Derm: Skin is fragile, is thin, Skin is dry, Skin is normal, Skin temperature is warm Reports white rash all over arms. Musculoskeletal: Range of motion: intact in all extremities. 15:01 Reassessment: No changes from previously documented assessment. Patient and/or family mb9 updated on plan of care and expected duration. Pain level reassessed. Patient is alert, oriented x 3, equal unlabored respirations, skin warm/dry/pink. Vital Signs: 12:21 BP 207 / 93; Pulse 64; Resp 18 S; Temp 98.2(TE); Pulse Ox 99% on R/A; Weight 79.38 kg aa5 (R); Height 5 ft. 4 in. (R); 13:46 BP 198 / 141; Pulse 60; Resp 18; Pulse Ox 100% ; as6 14:03 BP 177 / 96; Pulse 64; Resp 18; Pulse Ox 95% on R/A; mb9 15:01 BP 151 / 84; Pulse 68; Resp 18; Pulse Ox 95% on R/A; mb9 12:21 Body Mass Index 30.04 (79.38 kg, 162.56 cm) aa5 ED Course: 12:15 Patient arrived in ED. rg4 12:15 Lele Rahman DO is Private Physician. rg4 12:15 Daysi Mendez [facility]-C [facility]. sb4 12:15 Howard Samaniego MD is Attending Physician. sb4 12:21 Arm band placed on. mb9 12:28 Jessie Cristina RN is Primary Nurse. mb9 12:29 Triage completed. aa5 12:36 Bed in low position. Call light in reach. Side rails up X 1. Client placed on mb9 continuous cardiac and pulse oximetry monitoring. NIBP monitoring applied. Door closed. Noise minimized. Warm blanket given. 13:24 Flu Sent. as6 13:24 SARS RAPID Sent. as6 14:46 CT Abd/Pelvis - IV Contrast Only In Process Unspecified. EDMS 15:04 Lele Rahman DO is Referral Physician. sb4 15:05 No provider procedures requiring assistance completed. IV discontinued, intact, mb9 bleeding controlled, No redness/swelling at site. Pressure dressing applied. Administered Medications: 13:15 Drug: Ondansetron IVP 4 mg IVP once; over 2 minutes Route: IVP; Site: left forearm; as6 13:19 Drug: morphine IVP or IV 4 mg IVP once over 4 mins Route: IVP; Infused Over: 4 mins; as6 Site: right forearm; 13:19 Drug: diphenhydrAMINE IVP 25 mg IVP once Route: IVP; Site: right forearm; as6 14:03 Drug: hydrALAZINE IVP 10 mg IVP once Route: IVP; Site: right forearm; mb9 14:03 Drug: Potassium PO Effervescent Tablet 50 mEq PO once; dissolve in 4 ounces of water or mb9 juice Route: PO; Medication: 12:37 VIS not applicable for this client. mb9 Outcome: 15:04 Discharge ordered by . sb4 15:11 Discharged to home via wheelchair, mb9 15:11 Condition: stable 15:11 Discharge instructions given to patient, Instructed on discharge instructions, follow up and referral plans. Demonstrated understanding of instructions, follow-up care, 15:11 Patient left the ED. mb9 Signatures: Dispatcher [employer] Lindsay Santiago, RN RN [email or web address] Polina Camarillo4 Dayo Ko RN RN as6 Daysi Mendez, PABibianaC PABibianaC sb4 Jessie Cristina RN RN mb9
--- NOTE | 2023-06-19 15:05 | EDPHYS ---
Physician Documentation [facility] Name: Marjan Kolb Age: 68 yrs Sex: Female : 1955 Arrival Date: 06/19/2023 Time: 12:14 Bed 14 Private MD: Lele Rahman H ED Physician Howard Samaniego HPI: 06/19 13:00 This 68 yrs old Female presents to ER via Ambulatory with complaints of Abdominal Pain, sb4 Itching. 13:00 The patient presents with abdominal pain that is diffuse. Onset: The symptoms/episode sb4 began/occurred this morning. The symptoms do not radiate. Associated signs and symptoms: Pertinent positives: diarrhea. abdominal pain, nausea, and diarrhea began this morning. also reports several white itchy lesions on her legs bilaterally. no vomiting, fever, chest pain, sob. Historical: - Allergies: 12:28 Azithromycin; mb9 12:28 Bactrim; mb9 12:28 butorphanol; mb9 12:28 Fentanyl; mb9 12:28 Reglan; mb9 12:28 Sulfa (Sulfonamide Antibiotics); mb9 12:28 TRIMETHOPRIM; mb9 - PMHx: 12:28 angina pectoris; Anxiety; Atrial fibrillation; Bipolar disorder; COPD mb9 (Cholecystectomy); esophageal varicies; Hepatitis; HIV positive; Hypertensive disorder; Migraine; panic attack; - PSHx: 12:28 Appendectomy; Cholecystectomy; mb9 - Immunization history:: Adult Immunizations up to date. - Social history:: Smoking status: Patient/guardian denies using tobacco. ROS: 13:00 Constitutional: Negative for fever, chills, and weight loss, sb4 13:00 Abdomen/GI: Positive for abdominal pain, nausea, diarrhea, 13:00 Skin: Positive for lesions, 13:00 All other systems are negative, Exam: 13:00 Constitutional: This is a well developed, well nourished patient who is awake, alert, sb4 and in no acute distress. Head/Face: Normocephalic, atraumatic. Eyes: Extra-ocular motions intact. Periorbital areas with no swelling, redness, or edema. ENT: Mucous membranes moist. Cardiovascular: Regular rate and rhythm with a normal S1 and S2. Respiratory: Lungs have equal breath sounds bilaterally, clear to auscultation and percussion. No rales, rhonchi or wheezes noted. No increased work of breathing, no retractions or nasal flaring. Abdomen/GI: Soft, non-tender, no distension. MS/ Extremity: Pulses equal, no cyanosis. Neurovascular intact. Full, normal range of motion. Neuro: Awake and alert, GCS 15, oriented to person, place, time, and situation. Motor strength 5/5 in all extremities. Sensory grossly intact. 13:00 Skin: rash can be described as nonspecific, raised, white, on the right leg and left leg, Vital Signs: 12:21 BP 207 / 93; Pulse 64; Resp 18 S; Temp 98.2(TE); Pulse Ox 99% on R/A; Weight 79.38 kg aa5 (R); Height 5 ft. 4 in. (R); 13:46 BP 198 / 141; Pulse 60; Resp 18; Pulse Ox 100% ; as6 14:03 BP 177 / 96; Pulse 64; Resp 18; Pulse Ox 95% on R/A; mb9 15:01 BP 151 / 84; Pulse 68; Resp 18; Pulse Ox 95% on R/A; mb9 12:21 Body Mass Index 30.04 (79.38 kg, 162.56 cm) aa5 MDM: 12:23 Patient medically screened. sb4 13:00 Differential diagnosis: non-specific abd pain, gastroenteritis, drug reaction. sb4 15:04 Data reviewed: vital signs, nurses notes, lab test result(s), radiologic studies, and sb4 as a result, I will discharge patient. Care significantly affected by the following chronic conditions: Hypertension, Chronic Obstructive Pulmonary Disease. Counseling: I had a detailed discussion with the patient and/or guardian regarding the historical points, exam findings, and any diagnostic results supporting the discharge/admit diagnosis, the presence of at least one elevated blood pressure reading (>120/80) during this emergency department visit, lab results, radiology results, to return to the emergency department if symptoms worsen or persist or if there are any questions or concerns that arise at home. 06/19 12:52 Order name: CBC with Diff; Complete Time: 13:40 sb4 06/19 12:52 Order name: CMP; Complete Time: 13:52 sb4 06/19 12:52 Order name: Lipase; Complete Time: 13:52 sb4 06/19 13:02 Order name: SARS RAPID; Complete Time: 13:52 sb4 06/19 13:02 Order name: Flu; Complete Time: 13:52 sb4 06/19 13:52 Order name: CT Abd/Pelvis - IV Contrast Only; Complete Time: 15:02 sb4 06/19 12:52 Order name: IV Saline Lock; Complete Time: 12:58 sb4 06/19 12:52 Order name: Labs collected and sent; Complete Time: 13:20 sb4 Administered Medications: 13:15 Drug: Ondansetron IVP 4 mg IVP once; over 2 minutes Route: IVP; Site: left forearm; as6 13:19 Drug: morphine IVP or IV 4 mg IVP once over 4 mins Route: IVP; Infused Over: 4 mins; as6 Site: right forearm; 13:19 Drug: diphenhydrAMINE IVP 25 mg IVP once Route: IVP; Site: right forearm; as6 14:03 Drug: hydrALAZINE IVP 10 mg IVP once Route: IVP; Site: right forearm; mb9 14:03 Drug: Potassium PO Effervescent Tablet 50 mEq PO once; dissolve in 4 ounces of water or mb9 juice Route: PO; Disposition: 17:36 Co-signature as Attending Physician, Howard Samaniego MD I reviewed the patient's care rt provided by the Advanced Practice Provider and agree with the diagnosis and treatment plan. Disposition Summary: 06/19/23 15:04 Discharge Ordered Notes: Location: Home sb4 Problem: new sb4 Symptoms: are unchanged sb4 Condition: Stable sb4 Diagnosis - Abdominal pain, unspecified sb4 - Hypokalemia sb4 Followup: sb4 - With: Lele Rahman DO - When: As needed - Reason: Recheck today's complaints, Re-evaluation by your physician Discharge Instructions: - Discharge Summary Sheet sb4 - Abdominal Pain, Adult sb4 - Hypokalemia sb4 Forms: - Medication Reconciliation Form sb4 - Thank You Letter sb4 - Antibiotic Education sb4 - Prescription Opioid Use sb4 - Patient Portal Instructions sb4 - Leadership Thank You Letter sb4 Signatures: Dispatcher [employer] Dayo Lewis RN RN as6 Daysi Mendez PA-C PA-C sb4 Jessie Cristina RN RN mb9 Howard Samaniego MD MD rt
[2023-06-19 17:13] VITALS: BP 151/84; TEMP 98.2; O2SAT 95
== END ==
LOC: ER 12:14
DX: R10.9 Unspecified abdominal pain (principal); E87.6 Hypokalemia; I10 Essential (primary) hypertension; Z21 Asymptomatic human immunodeficiency virus [HIV] infection status; Z88.1 Allergy status to other antibiotic agents; Z11.52 Encounter for screening for COVID-19; Z88.2 Allergy status to sulfonamides; Z88.5 Allergy status to narcotic agent; Z88.8 Allergy status to other drugs, medicaments and biological substances
CPT/HCPCS: 85025; 36415; 83690; 80053; 87804 ×2; 74177; 87811; Q9967; J0360; J1200; J2405

== ENCOUNTER → 2023-06-22 | Emergency (ER) | payer OTHER ==
[~2023-06-22] MED LIST changes: -DIPHENHYDRAMINE 50 MG/ML VIAL ONE; -HYDRALAZINE HCL 20 MG/ML VIAL ONE; +LEVALBUTEROL 1.25 MG/3 ML NEB ONE; +METHYLPREDNISOLONE 125 MG INJ ONE; -MORPHINE 4 MG/ML SYR ONE; -ONDANSETRON 4 MG/2 ML VIAL ONE; -POTASSIUM 25 MEQ EFFERV TAB ONE
[2023-06-22 12:05] LABS: SARS-CoV-2 Antigen Rapid Res Negative (Negative)
--- NOTE | 2023-06-22 12:29 | RAD REPORT ---
EXAM DESCRIPTION: RAD - Chest Single View - 06/22/2023 12:14 pm CLINICAL HISTORY: Cough;COPD COMPARISON: Chest Single View dated 06/10/2023; Chest Single View dated 06/01/2023; Chest Single View dated 03/25/2023; Chest Single View dated 02/20/2023 FINDINGS: Lines: None. Lungs: No evidence of edema or pneumonia. Pleural: No significant pleural effusions or pneumothorax. Cardiac: The heart size is within normal limits. Mediastinum: Within normal limits. Bones: No acute fractures. Bilateral shoulder arthroplasties. Other: None IMPRESSION: No acute cardiopulmonary disease.
--- NOTE | 2023-06-22 12:37 | ER ---
Nurse's Notes [facility] Name: Marjan Kolb Age: 68 yrs Sex: Female : 1955 Arrival Date: 06/22/2023 Time: 11:10 Bed 19 Private MD: Diagnosis: COPD/ Chronic obstructive pulmonary disease, unspecified Presentation: 06/22 11:13 Chief complaint: EMS states: "toned out of SOB and wheezing that started this morning. mb9 Pt did not use home inhaler. Gave A\\T\\A treat and $ mg of Zofran IM.". Coronavirus screen: Vaccine status: Patient reports receiving the 2nd dose of the covid vaccine. Ebola Screen: No symptoms or risks identified at this time. Initial Sepsis Screen: Does the patient meet any 2 criteria? No. Patient's initial sepsis screen is negative. Does the patient have a suspected source of infection? No. Patient's initial sepsis screen is negative. Risk Assessment: Do you want to hurt yourself or someone else? Patient reports no desire to harm self or others. Onset of symptoms was June 22, 2023. 11:13 Method Of Arrival: EMS: [facility] mb9 11:13 Acuity: BLAYNE 3 mb9 Triage Assessment: 11:16 General: Appears in no apparent distress. Behavior is calm, cooperative. Pain: Denies mb9 pain. EENT: No deficits noted. Neuro: Gonzalez Agitation-Sedation Scale (RASS): 0 - Alert and Calm Level of Consciousness is awake, alert, obeys commands, Oriented to person, place, time, situation, Appropriate for age. Cardiovascular: Patient's skin is warm and dry. Respiratory: Reports shortness of breath Airway is patent Respiratory effort is even, unlabored, Respiratory pattern is regular, symmetrical, Breath sounds are clear bilaterally. GI: Reports nausea. : No signs and/or symptoms were reported regarding the genitourinary system. Derm: Skin is pink, warm \\T\\ dry. Musculoskeletal: Range of motion: intact in all extremities. Historical: - Allergies: 11:16 Azithromycin; mb9 11:16 butorphanol; mb9 11:16 Fentanyl; mb9 11:16 Bactrim; mb9 11:16 Reglan; mb9 11:16 Sulfa (Sulfonamide Antibiotics); mb9 11:16 TRIMETHOPRIM; mb9 - Home Meds: 11:51 metoprolol tartrate 50 mg Oral tablet 2 times per day [Active]; hydralazine 50 mg Oral mb9 tablet [Active]; - PMHx: 11:16 angina pectoris; Anxiety; Atrial fibrillation; Bipolar disorder; COPD mb9 (Cholecystectomy); esophageal varicies; Hepatitis; HIV positive; Hypertensive disorder; Migraine; panic attack; - PSHx: 11:16 Appendectomy; Cholecystectomy; mb9 - Immunization history:: Adult Immunizations up to date. - Social history:: Smoking status: Patient/guardian denies using tobacco. - Family history:: not pertinent. - Hospitalizations: : No recent hospitalization is reported. Screenin:17 [facility] ED Fall Risk Assessment (Adult) History of falling in the last 3 months, mb9 including since admission No falls in past 3 months (0 pts) Confusion or Disorientation No (0 pts) Intoxicated or Sedated No (0 pts) Impaired Gait No (0 pts) Mobility Assist Device Used No (0 pt) Altered Elimination No (0 pt) Score/Fall Risk Level 0 - 2 = Low Risk Oriented to surroundings, Maintained a safe environment, Educated pt \\T\\ family on fall prevention, incl call for assistance when getting out of bed. Abuse screen: Denies threats or abuse. Nutritional screening: No deficits noted. Tuberculosis screening: No symptoms or risk factors identified. Assessment: 11:17 Reassessment: pt states she did not take her BP medication this morning. mb9 12:29 Reassessment: No changes from previously documented assessment. Patient and/or family mb9 updated on plan of care and expected duration. Pain level reassessed. Patient is alert, oriented x 3, equal unlabored respirations, skin warm/dry/pink. 12:43 Reassessment: Patient and/or family updated on plan of care and expected duration. Pain mb9 level reassessed. Patient is alert, oriented x 3, equal unlabored respirations, skin warm/dry/pink. Patient states feeling better. Patient states symptoms have improved. Vital Signs: 11:13 BP 199 / 101; Pulse 54; Resp 20; Temp 98; Pulse Ox 96% on R/A; Weight 63.5 kg; Height 5 mb9 ft. 2 in. ; Pain 0/10; 11:54 BP 195 / 94; Pulse 57; Resp 18; Pulse Ox 100% on R/A; mb9 12:43 BP 185 / 90; Pulse 54; Resp 18; Pulse Ox 95% on R/A; mb9 11:13 Body Mass Index 25.61 (63.50 kg, 157.48 cm) mb9 11:13 Pain Scale: Adult mb9 ED Course: 11:11 Patient arrived in ED. rn 11:11 Ramon Baker MD is Attending Physician. rn 11:13 Jessie Cristina RN is Primary Nurse. mb9 11:15 Triage completed. mb9 11:16 Arm band placed on. mb9 11:17 Placed in gown. Bed in low position. Call light in reach. Side rails up X 1. Client mb9 placed on continuous cardiac and pulse oximetry monitoring. NIBP monitoring applied. color television console monitor on. 12:17 XRAY Chest (1 view) In Process Unspecified. EDMS 12:44 No provider procedures requiring assistance completed. Patient did not have IV access mb9 during this emergency room visit. Administered Medications: 11:30 Drug: MethylPREDNISolone Sodium Succinate IM 125 mg IM once Route: IM; Site: right mb9 deltoid; 11:51 Follow up: Response: No adverse reaction mb9 11:30 Drug: Levalbuterol Inhalation 1.25 mg Inhalation once Route: Inhalation; mb9 11:51 Follow up: Response: No adverse reaction mb9 Medication: 11:41 VIS not applicable for this client. mb9 Outcome: 12:37 Discharge ordered by . rn 12:44 Discharged to home via wheelchair, mb9 12:44 Condition: stable 12:44 Discharge instructions given to patient, Instructed on discharge instructions, follow up and referral plans. Demonstrated understanding of instructions, follow-up care, medications, Prescriptions given X 2, 12:44 Patient left the ED. mb9 Signatures: Dispatcher [employer] EDMS Ramon Baker MD MD rn Breneman, Mary Beth, RN RN [id number]
--- NOTE | 2023-06-22 12:37 | EDPHYS ---
Physician Documentation [facility] Name: Marjan Kolb Age: 68 yrs Sex: Female : 1955 Arrival Date: 06/22/2023 Time: 11:10 Bed 19 Private MD: ED Physician Ramon Baker HPI: 06/22 11:18 This 68 yrs old Female presents to ER via EMS with complaints of sob, wheezing. rn 11:18 The patient has shortness of breath at rest, with light activity. Onset: The rn symptoms/episode began/occurred yesterday. Duration: The symptoms are intermittent. The patient's shortness of breath is aggravated by coughing, light activity, is alleviated by application of supplemental oxygen. Severity of symptoms: At their worst the symptoms were moderate in the emergency department the symptoms have improved. The patient has experienced similar episodes in the past. Patient reports 2 days of wheezing and shortness of breath. Has been recently in the hospital and back at work, she gave her inhaler to her so that he could use. Did not have an inhaler back up at home. Call 911, given albuterol and Atrovent with improvement of symptoms. Patient states feels much better. No fever. No chest pain.. Historical: - Allergies: 11:16 Azithromycin; mb9 11:16 butorphanol; mb9 11:16 Fentanyl; mb9 11:16 Bactrim; mb9 11:16 Reglan; mb9 11:16 Sulfa (Sulfonamide Antibiotics); mb9 11:16 TRIMETHOPRIM; mb9 - Home Meds: 11:51 metoprolol tartrate 50 mg Oral tablet 2 times per day [Active]; hydralazine 50 mg Oral mb9 tablet [Active]; - PMHx: 11:16 angina pectoris; Anxiety; Atrial fibrillation; Bipolar disorder; COPD mb9 (Cholecystectomy); esophageal varicies; Hepatitis; HIV positive; Hypertensive disorder; Migraine; panic attack; - PSHx: 11:16 Appendectomy; Cholecystectomy; mb9 - Immunization history:: Adult Immunizations up to date. - Social history:: Smoking status: Patient/guardian denies using tobacco. - Family history:: not pertinent. - Hospitalizations: : No recent hospitalization is reported. ROS: 11:18 Constitutional: Negative for fever, chills, and weight loss, Cardiovascular: Negative rn for chest pain, palpitations, and edema, Respiratory: Positive for cough and wheezing Abdomen/GI: Positive for nausea MS/Extremity: Negative for injury and deformity, Skin: Negative for injury, rash, and discoloration, Neuro: Negative for headache, weakness, numbness, tingling, and seizure, Exam: 11:18 Constitutional: This is a well developed, well nourished patient who is awake, alert, rn and in no acute distress. Ambulatory from EMS stretcher to our bed without assistance or difficulty Head/Face: Normocephalic, atraumatic. ENT: No stridor Cardiovascular: Bradycardic, regular. No pulse deficits. Respiratory: mild tachypnea, no retractions, no wheezing. Abdomen/GI: Soft, nontender MS/ Extremity: Pulses equal, no cyanosis. Neuro: Awake and alert, GCS 15 Vital Signs: 11:13 BP 199 / 101; Pulse 54; Resp 20; Temp 98; Pulse Ox 96% on R/A; Weight 63.5 kg; Height 5 mb9 ft. 2 in. ; Pain 0/10; 11:54 BP 195 / 94; Pulse 57; Resp 18; Pulse Ox 100% on R/A; mb9 12:43 BP 185 / 90; Pulse 54; Resp 18; Pulse Ox 95% on R/A; mb9 11:13 Body Mass Index 25.61 (63.50 kg, 157.48 cm) mb9 11:13 Pain Scale: Adult mb9 MDM: 11:11 Patient medically screened. rn 12:36 Differential diagnosis: Chronic Obstructive Pulmonary Disease pneumonia, Pneumothorax. rn Data reviewed: vital signs, nurses notes, lab test result(s), radiologic studies, plain films, and as a result, I will discharge patient. Counseling: I had a detailed discussion with the patient and/or guardian regarding the historical points, exam findings, and any diagnostic results supporting the discharge/admit diagnosis, lab results, radiology results, the need for outpatient follow up, to return to the emergency department if symptoms worsen or persist or if there are any questions or concerns that arise at home. Special discussion: I discussed with the patient/guardian in detail that at this point there is no indication for admission to the hospital. It is understood, however, that if the symptoms persist or worsen the patient needs to return immediately for re-evaluation. 06/22 11:12 Order name: SARS RAPID; Complete Time: 12:21 rn 06/22 11:12 Order name: Flu; Complete Time: 12:21 rn 06/22 11:12 Order name: XRAY Chest (1 view); Complete Time: 12:35 rn 06/22 11:12 Order name: EKG; Complete Time: 11:13 rn 06/22 11:12 Order name: EKG - Nurse/Tech; Complete Time: 11:18 rn 06/22 11:13 Order name: Cardiac monitoring; Complete Time: 11:18 rn 06/22 11:13 Order name: O2 Sat Monitoring; Complete Time: 11:17 rn Administered Medications: 11:30 Drug: MethylPREDNISolone Sodium Succinate IM 125 mg IM once Route: IM; Site: right mb9 deltoid; 11:51 Follow up: Response: No adverse reaction mb9 11:30 Drug: Levalbuterol Inhalation 1.25 mg Inhalation once Route: Inhalation; mb9 11:51 Follow up: Response: No adverse reaction mb9 Disposition Summary: 06/22/23 12:37 Discharge Ordered Notes: Location: Home rn Problem: an acute exacerbation rn Symptoms: have improved rn Condition: Stable rn Diagnosis - COPD/ Chronic obstructive pulmonary disease, unspecified rn Followup: rn - With: Private Physician - When: As needed - Reason: Recheck today's complaints, Re-evaluation by your physician Discharge Instructions: - Discharge Summary Sheet rn - Chronic Obstructive Pulmonary Disease rn Forms: - Medication Reconciliation Form rn - Thank You Letter rn - Antibiotic deputy county attorney - Prescription Opioid Use rn - Patient Portal Instructions rn - Leadership Thank You Letter rn Prescriptions: - albuterol sulfate 90 mcg/actuation Inhalation HFA Aerosol Inhaler - inhale 2 puff INHALATION route every 4 to 6 hours As needed as needed for rn bronchospasm; administer via ventilator; 1 unit; Refills: 0, Product Selection Permitted - Prednisone 20 mg Oral Tablet - take 3 tablets ORAL route once daily for 5 days; 15 tablet; Refills: 0, Product rn Selection Permitted Signatures: Dispatcher [employer] Ramon Linton MD MD rn Breneman, Mary Beth, RN RN mb9
[2023-06-22 16:32] VITALS: BP 185/90; TEMP 98; O2SAT 95
--- NOTE | 2023-06-23 13:25 | EKG ---
Test Date: 2023-06-22 Test Time: 11:29:19 Coding Tech: MB MEASUREMENT RESULTS: Intervals: Rate: 58 AR: 186 QRSD: 98 QT: 512 QTc: 502 [place]: P: AR: 186 QRS: -12 T: -12 INTERPRETIVE STATEMENTS: Sinus bradycardia Voltage criteria for left ventricular hypertrophy ST & T wave abnormality, consider anterior ischemia Prolonged QT Abnormal ECG Compared to ECG 03/25/2023 16:05:08 ST (T wave) deviation now present Possible ischemia now present Prolonged QT interval now present First degree AV block no longer present Early repolarization no longer present Electronically Signed On 06-23-23 13:22:18 CHIEF WHARFINGER by Mike Lund
== END ==
LOC: ER 11:10
DX: J44.9 Chronic obstructive pulmonary disease, unspecified (principal); I10 Essential (primary) hypertension; Z21 Asymptomatic human immunodeficiency virus [HIV] infection status; Z88.1 Allergy status to other antibiotic agents; Z88.2 Allergy status to sulfonamides; Z88.8 Allergy status to other drugs, medicaments and biological substances
CPT/HCPCS: 36415; 71045; 87804; 87811; 93005; J2930; J7614

== ENCOUNTER → 2023-06-26 | Emergency (ER) | payer OTHER ==
[~2023-06-26] MED LIST changes: +FAMOTIDINE 20 MG/2 ML VIAL IV ONE; -LEVALBUTEROL 1.25 MG/3 ML NEB ONE; -METHYLPREDNISOLONE 125 MG INJ ONE; +MORPHINE 2 MG/ML SYR ONE; +NA CHLORIDE 0.9% 1,000 ML ONE; +ONDANSETRON 4 MG/2 ML VIAL ONE
--- NOTE | 2023-06-26 15:59 | RAD REPORT ---
EXAM DESCRIPTION: Patrick Single View06/26/2023 3:28 pm CLINICAL HISTORY: Chest pain COMPARISON: June 22, 2023 FINDINGS: The lungs appear clear of acute infiltrate. The heart is moderately enlarged. Mild promin ence the right hilum unchanged
[2023-06-26 16:37] LABS: Absolute Lymphocytes (CBC) 1.1 K/uL (0.7-4.9); Hematocrit 36.9 % (36.0-45.0); Lymphocytes % 22.8 % (15.3-44.8); MCV 82.4 fL (80-100); Platelets 154 thou/uL (152-406); RBC Red Blood Cell Count 4.48 M/uL (3.86-4.86)
[2023-06-26 16:59] LABS: Protime INR 1.07
[2023-06-26 17:11] LABS: Albumin 3.3 g/dL (3.4-5.0); Bilirubin Direct 0.1 mg/dL (0-0.2); Bilirubin Indirect, Calculated 0.3 mg/dL (0.2-0.8); Bilirubin Total 0.4 mg/dL (0.2-1.0); Magnesium 2.5 mg/dL (1.6-2.4); Potassium 3.5 mEq/L (3.5-5.1); Troponin High Sensitivity 16.4 pg/mL (<58.9)
--- NOTE | 2023-06-26 17:21 | EDPHYS ---
Physician Documentation [facility] Name: Marjan Kolb Age: 68 yrs Sex: Female : 1955 Arrival Date: 06/26/2023 Time: 13:46 Bed 12 Private MD: ED Physician Heladio Collins HPI: 06/26 17:17 This 68 yrs old Female presents to ER via EMS with complaints of Chest Pain, Abdominal sp3 Pain. 17:17 68-year-old female with atrial fibrillation, COPD, bipolar disease presents again for sp3 chest pain and abdominal pain. Patient is in no acute distress with normal vital signs at triage. She states that her chest pain started yesterday greater than 18 hours ago. She denies shortness of breath, nausea, vomiting, diarrhea, syncope, fever, or any other changes on ROS at this time.. Historical: - Allergies: 14:02 Azithromycin; hb 14:02 Bactrim; hb 14:02 butorphanol; hb 14:02 Fentanyl; hb 14:02 Reglan; hb 14:02 Sulfa (Sulfonamide Antibiotics); hb 14:02 TRIMETHOPRIM; hb - Home Meds: 14:02 hydralazine 50 mg Oral tablet [Active]; metoprolol tartrate 50 mg Oral tablet 2 times hb per day [Active]; - PMHx: 14:02 angina pectoris; Anxiety; Atrial fibrillation; Bipolar disorder; COPD hb (Cholecystectomy); esophageal varicies; Hepatitis; HIV positive; Hypertensive disorder; Migraine; panic attack; - PSHx: 14:02 Appendectomy; Cholecystectomy; hb - Immunization history:: Adult Immunizations unknown. - Social history:: Smoking status: unknown. ROS: 17:18 Constitutional: Negative for fever, chills, and weight loss, Eyes: Negative for injury, sp3 pain, redness, and discharge, ENT: Negative for injury, pain, and discharge, Neck: Negative for injury, pain, and swelling, Respiratory: Negative for shortness of breath, cough, wheezing, and pleuritic chest pain, Back: Negative for injury and pain, MS/Extremity: Negative for injury and deformity, Skin: Negative for injury, rash, and discoloration, Neuro: Negative for headache, weakness, numbness, tingling, and seizure, Psych: Negative for depression, anxiety, suicide ideation, homicidal ideation, and hallucinations, Allergy/Immunology: Negative for hives, rash, and allergies, Endocrine: Negative for neck swelling, polydipsia, polyuria, polyphagia, and marked weight changes, 17:18 All other systems are negative, Exam: 17:18 Constitutional: This is a well developed, well nourished patient who is awake, alert, sp3 and in no acute distress. Head/Face: Normocephalic, atraumatic. Eyes: Pupils equal round and reactive to light, extra-ocular motions intact. Lids and lashes normal. Conjunctiva and sclera are non-icteric and not injected. Cornea within normal limits. Periorbital areas with no swelling, redness, or edema. ENT: Nares patent. No nasal discharge, no septal abnormalities noted. External auditory canals are clear. Oropharynx with no redness, swelling, or masses, exudates, or evidence of obstruction, uvula midline. Mucous membranes moist. Neck: Trachea midline, no thyromegaly or masses palpated, and no cervical lymphadenopathy. Supple, full range of motion without nuchal rigidity, or vertebral point tenderness. No Meningismus. Chest/axilla: Normal chest wall appearance and motion. Nontender with no deformity. No lesions are appreciated. Cardiovascular: Regular rate and rhythm with a normal S1 and S2. No gallops, murmurs, or rubs. Normal PMI, no JVD. No pulse deficits. Respiratory: Lungs have equal breath sounds bilaterally, clear to auscultation and percussion. No rales, rhonchi or wheezes noted. No increased work of breathing, no retractions or nasal flaring. Abdomen/GI: Soft, non-tender, with normal bowel sounds. No distension or tympany. No guarding or rebound. No evidence of tenderness throughout. Back: No spinal tenderness. No costovertebral tenderness. Full range of motion. Skin: Warm, dry with normal turgor. Normal color with no rashes, no lesions, and no evidence of cellulitis. MS/ Extremity: Pulses equal, no cyanosis. Neurovascular intact. Full, normal range of motion. Neuro: Awake and alert, GCS 15, oriented to person, place, time, and situation. Cranial nerves II-XII grossly intact. Motor strength 5/5 in all extremities. Sensory grossly intact. Cerebellar exam normal. Normal gait. Psych: Awake, alert, with orientation to person, place and time. Behavior, mood, and affect are within normal limits. 17:18 ECG was reviewed by the Attending Physician. EKG demonstrates sinus bradycardia at 51 bpm with first-degree AV block of 200 MA, normal axis, normal QRS, nonspecific diffuse ST's ST changes without evidence of acute ischemia. Vital Signs: 14:01 BP 162 / 82; Pulse 52; Resp 16; Pulse Ox 97% on R/A; Pain 9/10; hb 15:18 BP 196 / 100; Pulse 51; Resp 17; Pulse Ox 100% ; tl4 16:30 BP 185 / 92; Pulse 50; Resp 17; Pulse Ox 100% ; tl4 17:16 BP 209 / 116; Pulse 53; Resp 19; Pulse Ox 100% ; tl4 14:01 Pain Scale: Adult hb MDM: 14:16 Patient medically screened. sp3 17:19 Data reviewed: vital signs, nurses notes, old medical records, lab test result(s), EKG, sp3 radiologic studies. ED course: All workup reviewed and is normal. I do not believe patient is having an acute [place]. Troponin is negative after more than 18 hours of symptoms. Patient has multiple episodes of this in the past and is a regular patient here in the ED. She is demanding narcotic pain medications. This is not indicated and we will not administer them on this visit. Patient will be safely discharged home at this time.. 06/26 14:16 Order name: Basic Metabolic Panel; Complete Time: 17:15 sp3 06/26 14:16 Order name: CBC with Diff; Complete Time: 17: sp3 06/26 14:16 Order name: LFT's; Complete Time: 17:15 sp3 06/26 14:16 Order name: Magnesium; Complete Time: 17:15 sp3 06/26 14:16 Order name: NT PRO-BNP; Complete Time: 17:15 sp3 06/26 14:16 Order name: PT-INR; Complete Time: 17:15 sp3 06/26 14:16 Order name: Troponin HS; Complete Time: 17:15 sp3 06/26 14:16 Order name: XRAY Chest (1 view); Complete Time: 16:22 sp3 06/26 14:16 Order name: EKG; Complete Time: 14: sp3 06/26 14:16 Order name: Cardiac monitoring; Complete Time: 14:59 sp3 06/26 14:16 Order name: EKG - Nurse/Tech; Complete Time: 14:55 sp3 06/26 14:16 Order name: IV Saline Lock; Complete Time: 16:23 sp3 06/26 14:16 Order name: Labs collected and sent; Complete Time: 16:23 sp3 06/26 14:16 Order name: O2 Per Protocol; Complete Time: 14:59 sp3 06/26 14:16 Order name: O2 Sat Monitoring; Complete Time: 14:59 sp3 Administered Medications: No medications were administered Disposition Summary: 06/26/23 17:20 Discharge Ordered Notes: Location: Home sp3 Condition: Stable sp3 Diagnosis - Nonspecific chest pain, abdominal pain sp3 Followup: sp3 - With: Private Physician - When: Upon discharge from the Emergency Department - Reason: Continuance of care Discharge Instructions: - Discharge Summary Sheet sp3 - Nonspecific Chest Pain, Adult sp3 Forms: - Medication Reconciliation Form sp3 - Thank You Letter sp3 - Antibiotic Education sp3 - Prescription Opioid Use sp3 - Patient Portal Instructions sp3 - Leadership Thank You Letter sp3 Signatures: Dispatcher [employer] Tata Arriola RN RN Heladio Johnson MD MD sp3 Arron Mondragon tl4
--- NOTE | 2023-06-26 17:21 | ER ---
Nurse's Notes [facility] Name: Marjan Kolb Age: 68 yrs Sex: Female : 1955 Arrival Date: 06/26/2023 Time: 13:46 Bed 12 Private MD: Diagnosis: Nonspecific chest pain, abdominal pain Presentation: 06/26 14:01 Chief complaint: EMS states: Chest pain since last night, took Nitro x 1 with no hb relief, SBP 160s, HR 40s and irregular on EKG. ASA 324 mg administered FISH BAILER. Coronavirus screen: At this time, the client does not indicate any symptoms associated with coronavirus-19. Ebola Screen: No symptoms or risks identified at this time. Risk Assessment: Do you want to hurt yourself or someone else? Patient reports no desire to harm self or others. Onset of symptoms was June 25, 2023. 14:01 Method Of Arrival: EMS: [facility] hb 14:01 Acuity: BLAYNE 3 hb 15:51 Initial Sepsis Screen: Does the patient meet any 2 criteria? No. Patient's initial tl4 sepsis screen is negative. Does the patient have a suspected source of infection? No. Patient's initial sepsis screen is negative. Triage Assessment: 15:45 General: Appears in no apparent distress. Behavior is calm, cooperative. Pain: tl4 Complains of pain in abdomen Pain does not radiate. Quality of pain is described as burning, Pain began 2 weeks ago. EENT: No deficits noted. No signs and/or symptoms were reported regarding the EENT system. Neuro: No deficits noted. Cardiovascular: Reports chest pain, Denies diaphoresis, fatigue, lightheadedness, nausea, palpitations. Respiratory: Reports shortness of breath ongoing, no increase in distress. GI: No deficits noted. No signs and/or symptoms were reported involving the gastrointestinal system. pt reports normal BM. : No deficits noted. No signs and/or symptoms were reported regarding the genitourinary system. Derm: No deficits noted. No signs and/or symptoms reported regarding the dermatologic system. Historical: - Allergies: 14:02 Azithromycin; hb 14:02 Bactrim; hb 14:02 butorphanol; hb 14:02 Fentanyl; hb 14:02 Reglan; hb 14:02 Sulfa (Sulfonamide Antibiotics); hb 14:02 TRIMETHOPRIM; hb - Home Meds: 14:02 hydralazine 50 mg Oral tablet [Active]; metoprolol tartrate 50 mg Oral tablet 2 times hb per day [Active]; - PMHx: 14:02 angina pectoris; Anxiety; Atrial fibrillation; Bipolar disorder; COPD hb (Cholecystectomy); esophageal varicies; Hepatitis; HIV positive; Hypertensive disorder; Migraine; panic attack; - PSHx: 14:02 Appendectomy; Cholecystectomy; hb - Immunization history:: Adult Immunizations unknown. - Social history:: Smoking status: unknown. Screenin:49 [facility] ED Fall Risk Assessment (Adult) History of falling in the last 3 months, tl4 including since admission No falls in past 3 months (0 pts) Confusion or Disorientation No (0 pts) Intoxicated or Sedated No (0 pts) Impaired Gait No (0 pts) Mobility Assist Device Used No (0 pt) Altered Elimination No (0 pt) Score/Fall Risk Level 0 - 2 = Low Risk Oriented to surroundings, Maintained a safe environment, Educated pt \T\ family on fall prevention, incl call for assistance when getting out of bed, Assessed \T\ reinforced patient's understanding of fall precautions, Provided non-skid footwear, Hourly rounding (assess needs \T\ fall precautionary measures) done, Used ambulatory aids as needed (educated on \T\ assisted with), Used gait belt as appropriate. Abuse screen: Denies threats or abuse. Denies injuries from another. Nutritional screening: No deficits noted. Tuberculosis screening: No symptoms or risk factors identified. Assessment: 15:48 Reassessment: No changes from previously documented assessment. Patient and/or family tl4 updated on plan of care and expected duration. Pain level reassessed. Patient is alert, oriented x 3, equal unlabored respirations, skin warm/dry/pink. Pain: Complains of pain in abdomen. 16:36 Reassessment: No changes from previously documented assessment. Patient and/or family tl4 updated on plan of care and expected duration. Pain level reassessed. Patient is alert, oriented x 3, equal unlabored respirations, skin warm/dry/pink. Vital Signs: 14:01 BP 162 / 82; Pulse 52; Resp 16; Pulse Ox 97% on R/A; Pain 9/10; hb 15:18 BP 196 / 100; Pulse 51; Resp 17; Pulse Ox 100% ; tl4 16:30 BP 185 / 92; Pulse 50; Resp 17; Pulse Ox 100% ; tl4 17:16 BP 209 / 116; Pulse 53; Resp 19; Pulse Ox 100% ; tl4 14:01 Pain Scale: Adult hb ED Course: 13:51 Patient arrived in ED. im 14:02 Triage completed. hb 14:04 Arm band placed on right wrist. ss 14:07 Heladio Collins MD is Attending Physician. sp3 15:30 XRAY Chest (1 view) In Process Unspecified. EDMS 15:45 Arron Mondragon is Primary Nurse. tl4 15:49 Patient has correct armband on for positive identification. Placed in gown. Bed in low tl4 position. Call light in reach. Side rails up X2. Provided Education on: ed process. Client placed on continuous cardiac and pulse oximetry monitoring. NIBP monitoring applied. communications superintendent on. Door closed. Lights dimmed. Moved to private room. Warm blanket given. 15:51 No provider procedures requiring assistance completed. Oxygen administration via nasal tl4 cannula \T\ 3L/min. 16:37 Basic Metabolic Panel Sent. tl4 16:37 CBC with Diff Sent. tl4 16:37 LFT's Sent. tl4 16:37 Magnesium Sent. tl4 16:37 NT PRO-BNP Sent. tl4 16:37 PT-INR Sent. tl4 16:37 Troponin HS Sent. tl4 17:19 Inserted saline lock: 20 gauge in left antecubital area, using aseptic technique. Blood tl4 collected. 17:28 IV discontinued, intact, bleeding controlled, No redness/swelling at site. Pressure tl4 dressing applied. Administered Medications: No medications were administered Medication: 15:48 VIS not applicable for this client. tl4 Outcome: 17:20 Discharge ordered by . sp3 17:29 Discharged to home via wheelchair, tl4 17:29 Condition: stable 17:29 Discharge instructions given to patient, Instructed on discharge instructions, follow up and referral plans. Demonstrated understanding of instructions, follow-up care, 17:30 Patient left the ED. tl4 Signatures: Dispatcher [employer] EDMS Sandra Green RN RN Tata Rivera RN RN Heladio Collins MD MD sp3 Luzmaria Person Arron Mondragon tl4 Corrections: (The following items were deleted from the chart) 17:29 17:16 BP 209 / 116; Pulse 53bpm; Resp 19bpm; Pulse Ox 100% RA; tl4 tl4
[2023-06-26 20:23] VITALS: BP 209/116; O2SAT 100
--- NOTE | 2023-06-27 15:00 | EKG ---
Test Date: 2023-06-26 Test Time: 14:34:47 Business Unit Director: CAMMY MEASUREMENT RESULTS: Intervals: Rate: 43 IN: 184 QRSD: 82 QT: 586 QTc: 495 Poston: P: -12 IN: 184 QRS: 56 T: 59 INTERPRETIVE STATEMENTS: Sinus bradycardia ST & T wave abnormality, consider anterior ischemia Prolonged QT Abnormal ECG Compared to ECG 06/22/2023 11:29:19 Left ventricular hypertrophy no longer present ST (T wave) deviation still present Possible ischemia still present Electronically Signed On 06-27-23 14:57:51 LICENSED DIRECT ENTRY MIDWIFE by Mike Lund
== END ==
LOC: ER 13:46
DX: R07.9 Chest pain, unspecified (principal); R10.9 Unspecified abdominal pain; F41.9 Anxiety disorder, unspecified; J44.9 Chronic obstructive pulmonary disease, unspecified; Z21 Asymptomatic human immunodeficiency virus [HIV] infection status
CPT/HCPCS: 36415; 71045; 80048; 80076; 83735; 83880; 84484; 85025; 85610; 93005

== ENCOUNTER → 2023-06-28 | Emergency (ER) | payer OTHER ==
[2011-12-26 14:45] VITALS: BP 143/96
--- NOTE | 2023-06-28 14:39 | RAD REPORT ---
EXAM DESCRIPTION: RAD - Neck Soft Tissue - 06/28/2023 2:30 pm CLINICAL HISTORY: FORIEGN BODY COMPARISON: <Comparisons> FINDINGS: Prevertebral soft tissues are normal. Epiglottis and aryepiglottic folds are normal. Air c olumn is patent. No radiopaque foreign body is seen.Prominent degenerative change lower cervical spin e. 3 mm degenerative anterolisthesis C5 on 6. Moderate degenerative levoscoliosis. IMPRESSION: No radiopaque foreign body visualized.
[2023-06-28 14:54] LABS: Hematocrit 39.9 % (36.0-45.0); Lymphocytes % 14.6 % (15.3-44.8); MCV 81.1 fL (80-100); MPV 7.1 fL (7.6-11.3); Platelets 168 thou/uL (152-406); RBC Red Blood Cell Count 4.91 M/uL (3.86-4.86)
[2023-06-28 15:22] LABS: Albumin 3.6 g/dL (3.4-5.0); Bilirubin Total 0.6 mg/dL (0.2-1.0); Protein, Total 7.8 g/dL (6.4-8.2)
[2023-06-28 15:23] LABS: Potassium 4.1 mEq/L (3.5-5.1)
--- NOTE | 2023-06-28 16:09 | ER ---
Nurse's Notes [facility] Name: Marjan Kolb Age: 68 yrs Sex: Female : 1955 Arrival Date: 06/28/2023 Time: 13:38 Bed DX4 Private MD: Diagnosis: Upper abdominal pain, unspecified;Pain in throat Presentation: 06/28 13:44 Chief complaint: EMS states: pt reports sore throat, thinks she has a chicken bone as6 stuck. 13:44 Method Of Arrival: EMS: [facility] as6 13:55 Coronavirus screen: At this time, the client does not indicate any symptoms associated ap3 with coronavirus-19. Ebola Screen: No symptoms or risks identified at this time. Initial Sepsis Screen: Does the patient meet any 2 criteria? No. Patient's initial sepsis screen is negative. Does the patient have a suspected source of infection? No. Patient's initial sepsis screen is negative. Risk Assessment: Do you want to hurt yourself or someone else? Patient reports no desire to harm self or others. Onset of symptoms was June 27, 2023. 13:55 Acuity: BLAYNE 3 ap3 Triage Assessment: 13:58 General: Appears uncomfortable, Behavior is calm, cooperative, appropriate for age. ap3 Pain: Complains of pain in xiphoid area, mid-sternal area and neck Pain currently is 8 out of 10 on a pain scale. Pain began gradually, 1 day ago. EENT: Reports pain in throat and esophageal area. Neuro: Level of Consciousness is awake, alert, obeys commands, Oriented to person, place, time, situation. Cardiovascular: Patient's skin is warm and dry. Respiratory: Airway is patent Respiratory effort is even, unlabored, Respiratory pattern is regular, symmetrical. GI: Reports upper abdominal pain. Historical: - Allergies: 13:57 Azithromycin; ap3 13:57 Bactrim; ap3 13:57 butorphanol; ap3 13:57 Fentanyl; ap3 13:57 Reglan; ap3 13:57 Sulfa (Sulfonamide Antibiotics); ap3 13:57 TRIMETHOPRIM; ap3 - PMHx: 13:57 angina pectoris; Atrial fibrillation; Anxiety; Bipolar disorder; COPD ap3 (Cholecystectomy); esophageal varicies; esophageal varicies; Hepatitis; HIV positive; Hypertensive disorder; Migraine; panic attack; - PSHx: 13:57 Appendectomy; Cholecystectomy; ap3 - Immunization history:: Client reports receiving the 2nd dose of the Covid vaccine. - Social history:: Smoking status: Patient denies any tobacco usage or history of. Screenin:59 Abuse screen: Denies threats or abuse. Nutritional screening: No deficits noted. ap3 Tuberculosis screening: No symptoms or risk factors identified. 16:19 [facility] ED Fall Risk Assessment (Adult) Score/Fall Risk Level 0 - 2 = Low Risk. as6 Assessment: 15:30 Reassessment: Patient appears in no apparent distress at this time. "Do you think the as6 provider will give me more pain medicine before I leave?" pt resting comfortably in chair. Vital Signs: 13:55 BP 193 / 100; Pulse 56; Resp 18; Temp 97.9; Pulse Ox 95% on R/A; Weight 79.38 kg; ap3 Height 5 ft. 4 in. ; Pain 8/10; 15:29 BP 159 / 98; Pulse 54; Resp 18 S; Pulse Ox 95% on R/A; as6 13:55 Body Mass Index 30.04 (79.38 kg, 162.56 cm) ap3 13:55 Pain Scale: Adult ap3 ED Course: 13:42 Patient arrived in ED. im 13:48 Rosemary Cespedes FNP-C is PHCP. kb 13:48 Justus Kolb MD is Attending Physician. kb 13:57 Triage completed. ap3 14:00 Arm band placed on right wrist. ap3 14:33 Neck Soft Tissue XRAY In Process Unspecified. EDMS 14:45 Inserted saline lock: 24 gauge in right wrist, using aseptic technique. Blood collected.as6 14:46 Bed in low position. Call light in reach. as6 16:19 Provided Education on: follow up. as6 16:19 No provider procedures requiring assistance completed. IV discontinued, intact, as6 bleeding controlled, No redness/swelling at site. Pressure dressing applied. Administered Medications: 14:55 Drug: NS 0.9% IV 1000 ml IV at 1 bolus Per protocol; 1000 mL bolus Route: IV; Rate: 1 as6 bolus; Site: right wrist; 16:18 Follow up: Response: No adverse reaction; IV Status: Completed infusion; IV Intake: as6 1000ml 14:55 Drug: Famotidine IVP 20 mg IVP once; dilute with 10 mL 0.9% NaCl; give over 2 minutes as6 Route: IVP; Site: right wrist; 16:18 Follow up: Response: No adverse reaction as6 14:55 Drug: Ondansetron IVP 4 mg IVP once; over 2 minutes Route: IVP; Site: right wrist; as6 16:18 Follow up: Response: No adverse reaction as6 14:55 Drug: morphine IVP or IV 2 mg IVP once over 4 mins Route: IVP; Infused Over: 4 mins; as6 Site: right wrist; 16:18 Follow up: Response: No adverse reaction as6 16:12 Drug: morphine IVP or IV 2 mg IVP once over 4 mins Route: IVP; Infused Over: 4 mins; as6 Site: right wrist; 16:18 Follow up: Response: No adverse reaction as6 Medication: 16:19 VIS not applicable for this client. as6 Intake: 16:18 IV: 1000ml; Total: 1000ml. as6 Outcome: 16:09 Discharge ordered by MD. taylor 16:19 Discharged to home via wheelchair, as6 16:19 Condition: stable 16:19 Discharge instructions given to patient, Instructed on discharge instructions, follow up and referral plans. Demonstrated understanding of instructions, follow-up care, 16:19 Patient left the ED. as6 Signatures: Dispatcher [employer] Rosemary Singh, PARIS SALGUERO-Danielle Jones RN RN ap3 Dayo Ko RN RN as6 Luzmaria Person
--- NOTE | 2023-06-28 16:09 | EDPHYS ---
Physician Documentation [facility] Name: Marjan Kolb Age: 68 yrs Sex: Female : 1955 Arrival Date: 06/28/2023 Time: 13:38 Bed DX4 Private MD: ED Physician Justus Kolb HPI: 06/28 19:06 This 68 yrs old Female presents to ER via EMS with complaints of Sore Throat. kb 19:06 Pt is a 68 year old female who presents for throat and upper abd pain that started last kb night. States she swallowed some chicken and believes she swallowed a bone. States she feels like something may be stuck in her throat. Reports she was able to eat some eggs this morning and has been tolerating po intake.. Historical: - Allergies: 13:57 Azithromycin; ap3 13:57 Bactrim; ap3 13:57 butorphanol; ap3 13:57 Fentanyl; ap3 13:57 Reglan; ap3 13:57 Sulfa (Sulfonamide Antibiotics); ap3 13:57 TRIMETHOPRIM; ap3 - PMHx: 13:57 angina pectoris; Atrial fibrillation; Anxiety; Bipolar disorder; COPD ap3 (Cholecystectomy); esophageal varicies; esophageal varicies; Hepatitis; HIV positive; Hypertensive disorder; Migraine; panic attack; - PSHx: 13:57 Appendectomy; Cholecystectomy; ap3 - Immunization history:: Client reports receiving the 2nd dose of the Covid vaccine. - Social history:: Smoking status: Patient denies any tobacco usage or history of. ROS: 19:05 Constitutional: Negative for fever, chills, and weight loss, kb 19:05 ENT: Positive for sore throat, 19:05 Abdomen/GI: Positive for abdominal pain, Negative for nausea, vomiting, and diarrhea, 19:05 All other systems are negative, Exam: 19:05 Constitutional: This is a well developed, well nourished patient who is awake, alert, kb and in no acute distress. Head/Face: Normocephalic, atraumatic. ENT: Moist Mucous membranes Neck: Trachea midline, no thyromegaly or masses palpated, and no cervical lymphadenopathy. Supple, full range of motion without nuchal rigidity, or vertebral point tenderness. No Meningismus. Cardiovascular: Regular rate Respiratory: Respirations even and unlabored. No increased work of breathing. Talking in full sentences Abdomen/GI: Soft, non-tender. No distention Skin: Warm, dry with normal turgor. Normal color. MS/ Extremity: Pulses equal, no cyanosis. Neurovascular intact. Full, normal range of motion. Neuro: Awake and alert, GCS 15, oriented to person, place, time, and situation. Moves all extremities. Normal gait. Vital Signs: 13:55 BP 193 / 100; Pulse 56; Resp 18; Temp 97.9; Pulse Ox 95% on R/A; Weight 79.38 kg; ap3 Height 5 ft. 4 in. ; Pain 8/10; 15:29 BP 159 / 98; Pulse 54; Resp 18 S; Pulse Ox 95% on R/A; as6 13:55 Body Mass Index 30.04 (79.38 kg, 162.56 cm) ap3 13:55 Pain Scale: Adult ap3 MDM: 13:48 Patient medically screened. kb 14:03 Data reviewed: vital signs, nurses notes. Historians other than the Patient: EMS: [facility]. 18:46 Differential diagnosis: esophageal FB, GERD. Counseling: I had a detailed discussion kb with the patient and/or guardian regarding the historical points, exam findings, and any diagnostic results supporting the discharge/admit diagnosis, lab results, radiology results, the need for outpatient follow up, a rn acute care, to return to the emergency department if symptoms worsen or persist or if there are any questions or concerns that arise at home. ED course: Pt has follow up with GI at the end of the week. 06/28 14:02 Order name: CBC with Diff; Complete Time: 14:59 kb 06/28 14:02 Order name: CMP; Complete Time: 15:24 kb 06/28 14:02 Order name: Lipase; Complete Time: 15:24 kb 06/28 14:03 Order name: Neck Soft Tissue XRAY; Complete Time: 14:42 kb 06/28 14:03 Order name: IV Saline Lock; Complete Time: 14:46 kb 06/28 14:03 Order name: Labs collected and sent; Complete Time: 14:46 kb Administered Medications: 14:55 Drug: NS 0.9% IV 1000 ml IV at 1 bolus Per protocol; 1000 mL bolus Route: IV; Rate: 1 as6 bolus; Site: right wrist; 16:18 Follow up: Response: No adverse reaction; IV Status: Completed infusion; IV Intake: as6 1000ml 14:55 Drug: Famotidine IVP 20 mg IVP once; dilute with 10 mL 0.9% NaCl; give over 2 minutes as6 Route: IVP; Site: right wrist; 16:18 Follow up: Response: No adverse reaction as6 14:55 Drug: Ondansetron IVP 4 mg IVP once; over 2 minutes Route: IVP; Site: right wrist; as6 16:18 Follow up: Response: No adverse reaction as6 14:55 Drug: morphine IVP or IV 2 mg IVP once over 4 mins Route: IVP; Infused Over: 4 mins; as6 Site: right wrist; 16:18 Follow up: Response: No adverse reaction as6 16:12 Drug: morphine IVP or IV 2 mg IVP once over 4 mins Route: IVP; Infused Over: 4 mins; as6 Site: right wrist; 16:18 Follow up: Response: No adverse reaction as6 Disposition Summary: 06/28/23 16:09 Discharge Ordered Notes: Location: Home kb Condition: Stable kb Diagnosis - Upper abdominal pain, unspecified kb - Pain in throat kb Followup: kb - With: Emergency Department - When: As needed - Reason: Worsening of condition Followup: kb - With: Private Physician - When: 2 - 3 days - Reason: Recheck today's complaints, Continuance of care, Re-evaluation by your physician Discharge Instructions: - Discharge Summary Sheet kb - Abdominal Pain, Adult, [id number] kb - Sore Throat, [id number] kb Forms: - Medication Reconciliation Form kb - Thank You Letter kb - Antibiotic Education kb - Prescription Opioid Use kb - Patient Portal Instructions kb - Leadership Thank You Letter kb Signatures: Dispatcher [employer] Rosemary Singh FNP-Richard HUITRONP-Danielle Jones, RN RN ap3 Dayo Ko, RN RN as6
== END ==
LOC: ER 13:38
DX: R07.0 Pain in throat (principal); R10.10 Upper abdominal pain, unspecified; Z21 Asymptomatic human immunodeficiency virus [HIV] infection status; Z88.1 Allergy status to other antibiotic agents; Z88.2 Allergy status to sulfonamides; Z88.5 Allergy status to narcotic agent; Z88.8 Allergy status to other drugs, medicaments and biological substances
CPT/HCPCS: 36415; 70360; 80053; 83690; 85025

== ENCOUNTER → 2023-07-06 | Emergency (ER) | payer OTHER ==
[~2023-07-06] MED LIST changes: +ALBUTEROL 2.5 MG/3 ML NEB SOL ONE; +DIPHENHYDRAMINE 25 MG TAB/CAP ONE; -FAMOTIDINE 20 MG/2 ML VIAL IV ONE; +IPRATROPIUM BROM 0.5MG/2.5ML ONE; +METHYLPREDNISOLONE 125 MG INJ ONE; -MORPHINE 2 MG/ML SYR ONE; -NA CHLORIDE 0.9% 1,000 ML ONE; -ONDANSETRON 4 MG/2 ML VIAL ONE; +cloNIDine HCL 0.1 MG TAB ONE; +clonazePAM 1 MG TAB ONE
--- NOTE | 2023-07-06 20:21 | EDPHYS ---
Physician Documentation [facility] Name: Marjan Dean Age: 68 yrs Sex: Female : 1955 Arrival Date: 07/06/2023 Time: 20:13 Bed 19 Private MD: ED Physician Dion Randhawa HPI: 07/06 20:15 This 68 yrs old Female presents to ER via Unassigned with complaints of sp4 Shortness of breath . 20:15 58-year-old female with past medical history of COPD presents with EMS for acute onset sp4 shortness of breath. Patient was assessed in the room, and has requested another provider. EMS reported patient is complaining of shortness of breath after cleaning and mopping at home. . 20:21 Historical: Allergies: 13:57Azithromycin; Bactrim; butorphanol; Fentanyl; Reglan; Sulfa sp4 (Sulfonamide Antibiotics); TRIMETHOPRIM; ap3 PMHx: angina pectoris; Atrial fibrillation; Anxiety; Bipolar disorder; COPD (Cholecystectomy); esophageal varicies; esophageal varicies; Hepatitis; HIV positive; Hypertensive disorder; Migraine; panic attack PSHx: Appendectomy; Cholecystectomy;. Historical: - Allergies: 20:45 Azithromycin; jw7 20:45 Bactrim; jw7 20:45 butorphanol; jw7 20:45 Fentanyl; jw7 20:45 Reglan; jw7 20:45 Sulfa (Sulfonamide Antibiotics); jw7 20:45 TRIMETHOPRIM; jw7 - Home Meds: 20:45 hydralazine 50 mg Oral tablet [Active]; metoprolol tartrate 50 mg Oral tablet 2 times jw7 per day [Active]; - PMHx: 20:45 angina pectoris; Anxiety; Atrial fibrillation; Bipolar disorder; COPD jw7 (Cholecystectomy); esophageal varicies; Hepatitis; HIV positive; Hypertensive disorder; Migraine; panic attack; - PSHx: 20:45 Appendectomy; Cholecystectomy; jw7 - Immunization history:: Adult Immunizations up to date, Client reports receiving the 2nd dose of the Covid vaccine, Last tetanus immunization: < 10 years ago Pneumococcal vaccine is not up to date, Flu vaccine is not up to date. - Social history:: Smoking status: Patient denies any tobacco usage or history of. Patient/guardian denies using alcohol, street drugs. - Family history:: not pertinent. ROS: 20:15 Constitutional: Negative for fever, chills, and weight loss, positive for shortness of sp4 breath. 20:15 All other systems are negative, Exam: 20:15 Constitutional: This is a well developed, well nourished patient who is awake, alert, sp4 and in no acute distress. Head/Face: Normocephalic, atraumatic. Eyes: Pupils equal round and reactive to light, extra-ocular motions intact. Lids and lashes normal. Conjunctiva and sclera are not injected. Cornea within normal limits. Periorbital areas with no swelling, redness, or edema. ENT: Nares patent. No nasal discharge, no septal abnormalities noted. Tympanic membranes are normal and external auditory canals are clear. Oropharynx with no redness, swelling, or masses, exudates, or evidence of obstruction, uvula midline. Mucous membranes moist. Neck: Trachea midline, no thyromegaly or masses palpated, and no cervical lymphadenopathy. Supple, full range of motion without nuchal rigidity, or vertebral point tenderness. Chest/axilla: Normal chest wall appearance and motion. Nontender with no deformity. No lesions are appreciated. Cardiovascular: Regular rate and rhythm with a normal S1 and S2. No gallops, murmurs, or rubs. Normal PMI, no JVD. No pulse deficits. Respiratory: Lungs have equal breath sounds bilaterally, clear to auscultation and percussion. No rales, rhonchi or wheezes noted. No increased work of breathing, no retractions or nasal flaring. Abdomen/GI: Soft, with normal bowel sounds. No distension or tympany. No guarding or rebound. No evidence of tenderness throughout. Back: No spinal tenderness. No costovertebral tenderness. Skin: Warm, dry with normal turgor. Normal color with no rashes, no lesions, and no evidence of cellulitis. MS/ Extremity: Pulses equal, no cyanosis. Neurovascular intact. Full, normal range of motion. Neuro: Awake and alert, GCS 15, oriented to person, place, time, and situation. Cranial nerves II-XII grossly intact. Motor strength 5/5 in all extremities. Sensory grossly intact. Psych: Awake, alert, with orientation to person, place and time. Behavior, mood, and affect are within normal limits 22:59 ECG was reviewed by the Attending Physician. 21:00 sp4 Vital Signs: 20:19 BP 157 / 129; Pulse 55; Resp 20 S; Temp 98(O); Pulse Ox 96% on R/A; Weight 79.38 kg; jw7 Height 5 ft. 4 in. ; Pain 10/10; 20:40 BP 177 / 83; Pulse 53; Resp 18 S; Pulse Ox 100% on R/A; jw7 21:30 BP 195 / 93; Pulse 48; Resp 19 S; Pulse Ox 94% on R/A; jw7 22:30 BP 194 / 100; Pulse 53; Resp 17 S; Pulse Ox 100% on R/A; jw7 23:10 BP 175 / 116; Pulse 59; Resp 16 S; Pulse Ox 96% on R/A; jw7 20:19 Body Mass Index 30.04 (79.38 kg, 162.56 cm) jw7 20:19 Pain Scale: Adult jw7 MDM: 20:15 Differential Diagnosis altered mental status, sepsis, flu, COPD exacerbation . Data sp4 reviewed: vital signs, nurses notes, EMS record, old medical records. ED course: Patient has refused care in the emergency room, patient was informed that we will do proper workup for shortness of breath including but not limited to blood work, chest x-ray, EKG, monitoring in the emergency department, and additional tests and interventions as may be necessary. Patient is refusing care and demanding another provider. Patient was informed that another provider will not see her at this time. We will provide her with informed discharge at this time. Patient is stable for departure from the emergency room her oxygenation is stable. . 20:20 Patient medically screened. sp4 20:50 ED course: Patient initially refused care, and then changed her mind and decided to sp4 stay for workup for dyspnea. Workup for shortness of breath was ordered. . 22:54 Consideration of Admission/Observation Escalation of care including sp4 admission/observation considered. ED course: Patient's work up is not complete but patient at this time would like to go home. She is refused for lab values. We will proceed with Informed discharge. Stable for discharge at this time. . 22:58 ED course: EXAM DESCRIPTION: RAD - Chest Single View - 07/06/2023 8:58 pm CLINICAL sp4 HISTORY: DYSPNEA Chest pain. COMPARISON: Chest Single View dated 06/26/2023; Chest Single View dated 06/22/2023; Chest Single View dated 06/10/2023; Chest Single View dated 06/01/2023 FINDINGS: Portable technique limits examination quality. The lungs are grossly clear. The heart is moderately enlarged. No displaced fractures.Bilateral shoulder arthroplasties. IMPRESSION: No acute intrathoracic process suspected. . ED course: Result review from prior record - Name: MARJAN DEAN Acct Number: [id number] :1955 Age:68 Sex:F Ord Phys: Rosemary Cespedes CRANE LADLE PERSON Unit Number: [id number] Prim Care Dr: Lele Rahman DO Status: REG ER ER Exam Date: 06/28/23 EXAM DESCRIPTION: RAD - Neck Soft Tissue - 06/28/2023 2:30 pm CLINICAL HISTORY: FOREIGN BODY COMPARISON: FINDINGS: Prevertebral soft tissues are normal. Epiglottis and aryepiglottic folds are normal. Air column is patent. No radiopaque foreign body is seen.Prominent degenerative change lower cervical spine. 3 mm degenerative anterolisthesis C5 on 6. Moderate degenerative levoscoliosis. IMPRESSION: No radiopaque foreign body visualized. . 07/06 20:49 Order name: Basic Metabolic Panel; Complete Time: 06:24 sp4 07/06 20:49 Order name: CBC with Diff; Complete Time: 06:24 sp4 07/06 20:49 Order name: LFT's; Complete Time: 06:24 sp4 07/06 20:49 Order name: Magnesium; Complete Time: 06:24 sp4 07/06 20:49 Order name: NT PRO-BNP; Complete Time: 06:24 sp4 07/06 20:49 Order name: PT-INR; Complete Time: 06:24 sp4 07/06 20:49 Order name: Troponin HS; Complete Time: 06:24 sp4 07/06 20:49 Order name: XRAY Chest (1 view); Complete Time: 21:35 sp4 07/06 20:49 Order name: EKG; Complete Time: 20:50 sp4 07/06 20:49 Order name: Cardiac monitoring; Complete Time: 22:17 sp4 07/06 20:49 Order name: EKG - Nurse/Tech; Complete Time: 21:34 sp4 07/06 20:49 Order name: IV Saline Lock; Complete Time: 22:17 sp4 07/06 20:49 Order name: Labs collected and sent; Complete Time: 22:17 sp4 07/06 20:49 Order name: O2 Per Protocol; Complete Time: 21:34 sp4 07/06 20:49 Order name: O2 Sat Monitoring; Complete Time: 21:34 sp4 EC:59 Rate is 53 beats/min. Rhythm is regular, Sinus bradycardia with PACs. QRS [place] is sp4 Normal. MS interval is prolonged. QRS interval is normal. QT interval is normal. No ST changes noted. Clinical impression: No evidence of ischemia. Interpreted by me. Reviewed by me. Administered Medications: 22:16 Drug: diphenhydrAMINE PO 25 mg PO once Route: PO; jw7 23:40 Follow up: Response: No adverse reaction; Marked relief of symptoms jw7 22:17 Drug: cloNIDine PO 0.1 mg PO once Route: PO; jw7 23:41 Follow up: Response: No adverse reaction; Marked relief of symptoms jw7 22:17 Drug: MethylPrednisoLONE IVP 125 mg IVP once Route: IVP; Site: right forearm; jw7 23:41 Follow up: Response: No adverse reaction; Marked relief of symptoms jw7 22:17 Drug: Albuterol Inhalation 2.5 mg Inhalation once Route: Inhalation; jw7 23:41 Follow up: Response: No adverse reaction; Marked relief of symptoms jw7 22:17 Drug: Ipratropium Inhalation Aerosol 0.5 mg Inhalation once Route: Inhalation; jw7 23:40 Follow up: Response: No adverse reaction; Marked relief of symptoms jw7 22:17 Drug: clonazePAM PO 1 mg PO once Route: PO; jw7 23:40 Follow up: Response: No adverse reaction; Marked relief of symptoms jw7 Disposition Summary: 07/06/23 22:56 Discharge Ordered Notes: Location: Home(07/06/23 22:56) sp4 Problem: new(07/06/23 22:56) sp4 Symptoms: have improved(07/06/23 22:56) sp4 Condition: Stable(07/06/23 22:56) sp4 Diagnosis - Dyspnea, unspecified(07/06/23 22:56) sp4 - Emotional upset, anxiety , history of COPD sp4 Followup: sp4 - With: Private Physician - When: 7 - 10 days - Reason: Recheck today's complaints Discharge Instructions: - Discharge Summary Sheet sp4 - Shortness of Breath, Adult, [id number] sp4 Forms: - Patient Portal Instructions sp4 Signatures: Dispatcher [employer] Cherie Lilly RN RN jw7 Dion Randhawa MD MD sp4 Corrections: (The following items were deleted from the chart) 20:50 20:20 Home sp4 sp4 20:50 20:20 new sp4 sp4 20:50 20:20 have improved sp4 sp4 20:50 20:20 Stable sp4 sp4 20:50 20:20 Dyspnea, unspecified sp4 sp4
--- NOTE | 2023-07-06 21:05 | RAD REPORT ---
EXAM DESCRIPTION: RAD - Chest Single View - 07/06/2023 8:58 pm CLINICAL HISTORY: DYSPNEA Chest pain. COMPARISON: Chest Single View dated 06/26/2023; Chest Single View dated 06/22/2023; Chest Single View d ated 06/10/2023; Chest Single View dated 06/01/2023 FINDINGS: Portable technique limits examination quality. The lungs are grossly clear. The heart is moderately enlarged. No displaced fractures.Bilateral shoul maryam arthroplasties. IMPRESSION: No acute intrathoracic process suspected.
[2023-07-06 22:48] LABS: Hematocrit 36.4 % (36.0-45.0); Lymphocytes % 18.7 % (15.3-44.8); MCV 81.8 fL (80-100); MPV 7.2 fL (7.6-11.3); Platelets 143 thou/uL (152-406); RBC Red Blood Cell Count 4.45 M/uL (3.86-4.86)
--- NOTE | 2023-07-06 22:56 | ER ---
Nurse's Notes [facility] Name: Marjan Kolb Age: 68 yrs Sex: Female : 1955 Arrival Date: 07/06/2023 Time: 20:13 Bed 19 Private MD: Diagnosis: Dyspnea, unspecified;Emotional upset, anxiety , history of COPD Presentation: 07/06 20:19 Chief complaint: EMS states: "Pt c/o SOB for the last 2 hours, got worse after cooking. jw7 Does have home O2 but was not using it upon arrival, O2 saturation was 94% RA. Placed pt on 2L O2 nasal cannula, O2 increased to 100%. Pt is also complaining of generalized abdominal pain for the last two weeks, has an appointment with GI Doctor scheduled". Coronavirus screen: At this time, the client does not indicate any symptoms associated with coronavirus-19. Ebola Screen: No symptoms or risks identified at this time. Initial Sepsis Screen: Does the patient meet any 2 criteria? No. Patient's initial sepsis screen is negative. Does the patient have a suspected source of infection? No. Patient's initial sepsis screen is negative. Risk Assessment: Do you want to hurt yourself or someone else? Patient reports no desire to harm self or others. Onset of symptoms was June 23, 2023. 20:19 Method Of Arrival: EMS: [place] [id number] 20:19 Acuity: BLAYNE 3 jw7 Triage Assessment: 20:20 General: Appears in no apparent distress. comfortable, Behavior is cooperative, jw7 agitated. Pain: Complains of pain in abdomen Pain does not radiate. Pain currently is 10 out of 10 on a pain scale. Quality of pain is described as crampy, "Sickening". Pain: Pain began 2 weeks ago Is intermittent. EENT: No deficits noted. No signs and/or symptoms were reported regarding the EENT system. Neuro: Level of Consciousness is awake, alert, obeys commands, Oriented to person, place, time, situation. Cardiovascular: Capillary refill < 3 seconds Clubbing of nail beds is absent JVD is absent Patient's skin is warm and dry. Respiratory: Airway is patent Trachea midline Respiratory effort is even, unlabored, Respiratory pattern is regular, symmetrical. GI: Abdomen is round distended, obese, Bowel sounds present X 4 quads. : No deficits noted. No signs and/or symptoms were reported regarding the genitourinary system. Derm: Skin is intact, is healthy with good turgor, Skin is dry, Skin is normal, Skin temperature is warm. Musculoskeletal: Circulation, motion, and sensation intact. Range of motion: intact in all extremities. Historical: - Allergies: 20:45 Azithromycin; jw7 20:45 Bactrim; jw7 20:45 butorphanol; jw7 20:45 Fentanyl; jw7 20:45 Reglan; jw7 20:45 Sulfa (Sulfonamide Antibiotics); jw7 20:45 TRIMETHOPRIM; jw7 - Home Meds: 20:45 hydralazine 50 mg Oral tablet [Active]; metoprolol tartrate 50 mg Oral tablet 2 times jw7 per day [Active]; - PMHx: 20:45 angina pectoris; Anxiety; Atrial fibrillation; Bipolar disorder; COPD jw7 (Cholecystectomy); esophageal varicies; Hepatitis; HIV positive; Hypertensive disorder; Migraine; panic attack; - PSHx: 20:45 Appendectomy; Cholecystectomy; jw7 - Immunization history:: Adult Immunizations up to date, Client reports receiving the 2nd dose of the Covid vaccine, Last tetanus immunization: < 10 years ago Pneumococcal vaccine is not up to date, Flu vaccine is not up to date. - Social history:: Smoking status: Patient denies any tobacco usage or history of. Patient/guardian denies using alcohol, street drugs. - Family history:: not pertinent. Screenin:30 [facility] ED Fall Risk Assessment (Adult) History of falling in the last 3 months, jw7 including since admission No falls in past 3 months (0 pts) Score/Fall Risk Level 0 - 2 = Low Risk Oriented to surroundings, Maintained a safe environment, Educated pt \\T\\ family on fall prevention, incl call for assistance when getting out of bed. Abuse screen: Denies threats or abuse. Denies injuries from another. Nutritional screening: No deficits noted. Tuberculosis screening: No symptoms or risk factors identified. Assessment: 20:30 General: See Triage Assessment. jw7 20:41 Reassessment: Patient asks if there is another Dr. she can see. Pt informed that we vc1 only have one Dr. at night and the EARTH SCIENCE PROFESSOR working tonight agrees to the same plan of care. Pt states, "I hope my blood pressure gets so high I ". I informed patient we can treat your blood pressure and we can treat your COPD but you are refusing care unless we give you narcotics. The Dr. and the EARTH SCIENCE PROFESSOR both agree no narcotics for chronic pain. Pt looks down at phone and sits quietly. 20:41 General: Pt agitated, states "I hope my blood pressure gets so high I ". Pt jw7 requested a different Doctor. Informed pt that there is only one MD on shift and a EARTH SCIENCE PROFESSOR. Explained to pt that both providers agreed upon the plan of care for the pt. Pt agreed to be worked up and receive care by MD. . 21:30 Reassessment: Patient appears in no apparent distress at this time. No changes from [facility] previously documented assessment. Patient and/or family updated on plan of care and expected duration. Pain level reassessed. Patient is alert, oriented x 3, equal unlabored respirations, skin warm/dry/pink. 22:30 Reassessment: Patient appears in no apparent distress at this time. No changes from [facility] previously documented assessment. Patient and/or family updated on plan of care and expected duration. Pain level reassessed. Patient is alert, oriented x 3, equal unlabored respirations, skin warm/dry/pink. 22:45 General: Pt stated "I would like a sandwich and to go home. I don't care about my blood jw7 pressure and I don't care about my results, I just want to go home and sleep in my own bed". Provider notified. 23:15 Reassessment: Patient appears in no apparent distress at this time. Patient and/or jw7 family updated on plan of care and expected duration. Pain level reassessed. Patient is alert, oriented x 3, equal unlabored respirations, skin warm/dry/pink. Vital Signs: 20:19 BP 157 / 129; Pulse 55; Resp 20 S; Temp 98(O); Pulse Ox 96% on R/A; Weight 79.38 kg; jw7 Height 5 ft. 4 in. ; Pain 10/10; 20:40 BP 177 / 83; Pulse 53; Resp 18 S; Pulse Ox 100% on R/A; jw7 21:30 BP 195 / 93; Pulse 48; Resp 19 S; Pulse Ox 94% on R/A; jw7 22:30 BP 194 / 100; Pulse 53; Resp 17 S; Pulse Ox 100% on R/A; jw7 23:10 BP 175 / 116; Pulse 59; Resp 16 S; Pulse Ox 96% on R/A; jw7 20:19 Body Mass Index 30.04 (79.38 kg, 162.56 cm) jw7 20:19 Pain Scale: Adult jw7 ED Course: 20:15 Patient arrived in ED. cg3 20:15 Dion Randhawa MD is Attending Physician. sp4 20:19 Cherie Frye RN is Primary Nurse. jw7 20:20 Patient has correct armband on for positive identification. Bed in low position. Call [facility] light in reach. Side rails up X 1. 20:45 Triage completed. jw7 20:45 Arm band placed on. jw7 21:00 XRAY Chest (1 view) In Process Unspecified. EDMS 22:17 Initial lab(s) drawn, by me, sent to lab. Inserted saline lock: 22 gauge in right jw7 forearm, using aseptic technique. Blood collected. 23:41 No provider procedures requiring assistance completed. IV discontinued, intact, jw7 bleeding controlled, No redness/swelling at site. Pressure dressing applied. 23:42 Provided Education on: discharge instructions. jw7 Administered Medications: 22:16 Drug: diphenhydrAMINE PO 25 mg PO once Route: PO; jw7 23:40 Follow up: Response: No adverse reaction; Marked relief of symptoms jw7 22:17 Drug: cloNIDine PO 0.1 mg PO once Route: PO; jw7 23:41 Follow up: Response: No adverse reaction; Marked relief of symptoms jw7 22:17 Drug: MethylPrednisoLONE IVP 125 mg IVP once Route: IVP; Site: right forearm; jw7 23:41 Follow up: Response: No adverse reaction; Marked relief of symptoms jw7 22:17 Drug: Albuterol Inhalation 2.5 mg Inhalation once Route: Inhalation; jw7 23:41 Follow up: Response: No adverse reaction; Marked relief of symptoms jw7 22:17 Drug: Ipratropium Inhalation Aerosol 0.5 mg Inhalation once Route: Inhalation; jw7 23:40 Follow up: Response: No adverse reaction; Marked relief of symptoms jw7 22:17 Drug: clonazePAM PO 1 mg PO once Route: PO; jw7 23:40 Follow up: Response: No adverse reaction; Marked relief of symptoms jw7 Medication: 23:42 VIS not applicable for this client. jw7 Outcome: 20:20 Discharge ordered by . sp4 22:56 Discharge ordered by . adis 23:41 Discharged to home via wheelchair, [facility] 23:41 Condition: stable 23:41 Discharge instructions given to patient, Instructed on discharge instructions, follow up and referral plans. Demonstrated understanding of instructions, follow-up care, 23:42 Patient left the ED. [facility] Signatures: Dispatcher [employer] EDMS Deyanira Medina RN RN vc1 Cherie Frye RN RN jw7 Dion Randhawa MD MD sp4 Chely Hernandez cg3 Corrections: (The following items were deleted from the chart) 20:45 General: Appears in no apparent distress. comfortable, Behavior is cooperative, jw7 agitated, jw7 20:45 Pain: Complains of pain in abdomen Pain does not radiate. Pain currently is 10 jw7 out of 10 on a pain scale. Quality of pain is described as crampy, "Sickening" jw7 20:45 EENT: No deficits noted. No signs and/or symptoms were reported regarding the [facility] EENT system. jw 20:45 Pain: Pain began 2 weeks ago Is intermittent, jw7 jw : 20:45 Neuro: Level of Consciousness is awake, alert, obeys commands, Oriented to 7 person, place, time, situation, jw7 20:45 Cardiovascular: Capillary refill < 3 seconds Clubbing of nail beds is absent JVD jw7 is absent Patient's skin is warm and dry. jw7 20:45 Respiratory: Airway is patent Trachea midline Respiratory effort is even, jw7 unlabored, Respiratory pattern is regular, symmetrical, jw7 : 20:45 GI: Abdomen is round distended, obese, Bowel sounds present X 4 quads. jw7 jw : 20:45 : No deficits noted. No signs and/or symptoms were reported regarding the [facility] genitourinary system. 7 20:45 Derm: Skin is intact, is healthy with good turgor, Skin is dry, Skin is normal, jw7 Skin temperature is warm jw 20:45 Musculoskeletal: Circulation, motion, and sensation intact. Range of motion: jw7 intact in all extremities, jw7 22:59 22:45 General: Pt stated "I would like a sandwich and to go home. I don't care about my jw7 blood pressure and I don't care about my results, I just want to go home and sleep in my own bed". jw7
[2023-07-06 23:26] LABS: Protime INR 1.01
[2023-07-06 23:27] LABS: Potassium 3.4 mEq/L (3.5-5.1)
[2023-07-06 23:28] LABS: Albumin 3.2 g/dL (3.4-5.0); Bilirubin Direct 0.1 mg/dL (0-0.2); Bilirubin Indirect, Calculated 0.3 mg/dL (0.2-0.8); Bilirubin Total 0.4 mg/dL (0.2-1.0); Magnesium 2.5 mg/dL (1.6-2.4); Protein, Total 6.9 g/dL (6.4-8.2); Troponin High Sensitivity 18.6 pg/mL (<58.9)
[2023-07-06 23:56] VITALS: TEMP 98
[2023-07-07 00:56] VITALS: BP 175/116; O2SAT 96
--- NOTE | 2023-07-07 14:40 | EKG ---
Test Date: 2023-07-06 Test Time: 21:00:56 Icu Manager: SAVANNA MEASUREMENT RESULTS: Intervals: Rate: 53 CT: 216 QRSD: 94 QT: 520 QTc: 487 [place]: P: 68 CT: 216 QRS: 18 T: 237 INTERPRETIVE STATEMENTS: Sinus bradycardia with 1st degree AV block with premature atrial complexes Left ventricular hypertrophy with repolarization abnormality Abnormal ECG Compared to ECG 06/26/2023 14:34:47 Atrial premature complex(es) now present First degree AV block now present Left ventricular hypertrophy now present Early repolarization now present ST (T wave) deviation no longer present Possible ischemia no longer present Prolonged QT interval no longer present Electronically Signed On 07-07-23 14:39:39 [employer] by Mike Lund
== END ==
LOC: ER 20:13
DX: R06.00 Dyspnea, unspecified (principal); R45.7 State of emotional shock and stress, unspecified; F41.9 Anxiety disorder, unspecified; J44.9 Chronic obstructive pulmonary disease, unspecified; Z21 Asymptomatic human immunodeficiency virus [HIV] infection status; I10 Essential (primary) hypertension; Z88.1 Allergy status to other antibiotic agents; Z88.2 Allergy status to sulfonamides; Z88.5 Allergy status to narcotic agent; Z88.8 Allergy status to other drugs, medicaments and biological substances
CPT/HCPCS: 36415; 71045; 80048; 80076; 83735; 83880; 84484; 85025; 85610; J2930; J7613; J7644

== ENCOUNTER → 2023-07-12 | Emergency (ER) | payer OTHER ==
[~2023-07-12] MED LIST changes: -ALBUTEROL 2.5 MG/3 ML NEB SOL ONE; +HYDRALAZINE HCL 20 MG/ML VIAL ONE; -IPRATROPIUM BROM 0.5MG/2.5ML ONE; -METHYLPREDNISOLONE 125 MG INJ ONE; +PROMETHAZINE 25 MG TABLET ONE; -cloNIDine HCL 0.1 MG TAB ONE; -clonazePAM 1 MG TAB ONE
--- NOTE | 2023-07-12 18:02 | RAD REPORT ---
EXAM DESCRIPTION: Patrick Single View07/12/2023 5:48 pm CLINICAL HISTORY: Shortness of breath COMPARISON: June 26, 2023 FINDINGS: The lungs appear clear of acute infiltrate. The heart is mildly to moderately enlarged IMPRESSION: No acute abnormalities displayed
[2023-07-12 18:27] LABS: Hematocrit 33.6 % (36.0-45.0); Lymphocytes % 20.4 % (15.3-44.8); MCV 81.2 fL (80-100); MPV 6.8 fL (7.6-11.3); Platelets 120 thou/uL (152-406); RBC Red Blood Cell Count 4.14 M/uL (3.86-4.86)
[2023-07-12 18:52] LABS: Albumin 3.1 g/dL (3.4-5.0); Bilirubin Direct 0.2 mg/dL (0-0.2); Bilirubin Indirect, Calculated 0.3 mg/dL (0.2-0.8); Bilirubin Total 0.5 mg/dL (0.2-1.0); Magnesium 2.1 mg/dL (1.6-2.4); Potassium 3.3 mEq/L (3.5-5.1); Protein, Total 6.8 g/dL (6.4-8.2); Troponin High Sensitivity 16.3 pg/mL (<58.9)
--- NOTE | 2023-07-12 19:39 | ER ---
Nurse's Notes [facility] Name: Marjan Kolb Age: 68 yrs Sex: Female : 1955 Arrival Date: 07/12/2023 Time: 16:49 Bed 6 Private MD: Diagnosis: COPD/ Chronic obstructive pulmonary disease, unspecified Presentation: 07/12 16:55 Chief complaint: EMS states: PATIENT WITH SOB, HX OF COPD. REQUESTS BREATHING TREATMENT ph BECAUSE DID NOT GET NEBULIZER. Coronavirus screen: Vaccine status: Patient reports receiving the 2nd dose of the covid vaccine. Client denies travel out of the [place] in the last 14 days. At this time, the client does not indicate any symptoms associated with coronavirus-19. Ebola Screen: Patient negative for fever greater than or equal to 101.5 degrees Fahrenheit, and additional compatible Ebola Virus Disease symptoms Patient denies exposure to infectious person. Patient denies travel to an Ebola-affected area in the 21 days before illness onset. No symptoms or risks identified at this time. Initial Sepsis Screen: Does the patient meet any 2 criteria? No. Patient's initial sepsis screen is negative. Does the patient have a suspected source of infection? No. Patient's initial sepsis screen is negative. Risk Assessment: Do you want to hurt yourself or someone else? Patient reports no desire to harm self or others. Onset of symptoms was July 12, 2023. 16:55 Method Of Arrival: EMS: [facility] 16:55 Acuity: BLAYNE 3 ph 16:59 Care prior to arrival: Medication(s) given: Albuterol Neb x 1, 2.5 MG. ph Triage Assessment: 16:59 General: Appears in no apparent distress. comfortable, Behavior is calm, cooperative. ph Pain: Complains of pain in chest. Neuro: Level of Consciousness is awake, alert, obeys commands, Oriented to person, place, time, situation. Respiratory: Reports shortness of breath cough that is Onset: The symptoms/episode began/occurred gradually, the patient has mild shortness of breath. Historical: - Allergies: 16:58 Azithromycin; ph 16:58 Bactrim; ph 16:58 butorphanol; ph 16:58 Fentanyl; ph 16:58 Reglan; ph 16:58 Sulfa (Sulfonamide Antibiotics); ph 16:58 TRIMETHOPRIM; ph - Home Meds: 16:59 hydralazine 50 mg Oral tablet [Active]; metoprolol tartrate 50 mg Oral tablet 2 times ph per day [Active]; - PMHx: 16:58 Anxiety; Atrial fibrillation; Bipolar disorder; COPD (Cholecystectomy); esophageal ph varicies; Hepatitis; angina pectoris; Hypertensive disorder; HIV positive; panic attack; Migraine; - PSHx: 16:58 Cholecystectomy; Appendectomy; ph - Immunization history:: Client reports receiving the 2nd dose of the Covid vaccine. - Social history:: Smoking status: Patient denies any tobacco usage or history of. Screenin:11 [facility] ED Fall Risk Assessment (Adult) History of falling in the last 3 months, ld1 including since admission No falls in past 3 months (0 pts). Abuse screen: Denies threats or abuse. Denies injuries from another. Nutritional screening: No deficits noted. Tuberculosis screening: No symptoms or risk factors identified. Assessment: 18:09 General: Appears in no apparent distress. comfortable, Behavior is calm, cooperative, ld1 appropriate for age. Pain: Denies pain. Neuro: Level of Consciousness is awake, alert, obeys commands, Oriented to person, place, time, situation. Cardiovascular: Capillary refill < 3 seconds Patient's skin is warm and dry. Rhythm is sinus rhythm. Respiratory: Airway is patent Respiratory effort is even, unlabored, Breath sounds are clear bilaterally. Respiratory: Reports shortness of breath at rest on exertion. GI: Abdomen is round non-distended. : No signs and/or symptoms were reported regarding the genitourinary system. EENT: No signs and/or symptoms were reported regarding the EENT system. Derm: No signs and/or symptoms reported regarding the dermatologic system. Musculoskeletal: No signs and/or symptoms reported regarding the musculoskeletal system. 19:15 Reassessment: Patient is alert, oriented x 3, equal unlabored respirations, skin as9 warm/dry/pink. General: Appears in no apparent distress. comfortable, Behavior is calm, cooperative, appropriate for age. Vital Signs: 16:55 BP 190 / 100; Pulse 60; Resp 18; Temp 97.9(O); Pulse Ox 98% ; Weight 90.72 kg; Height 5 ph ft. 4 in. ; 18:09 BP 221 / 109; Pulse 67; Resp 18; Pulse Ox 100% on R/A; ld1 19:00 BP 212 / 119; Pulse 70; Resp 18; Pulse Ox 97% on R/A; as9 19:50 BP 198 / 93; Pulse 68; Resp 18; Temp 97.8; Pulse Ox 97% on R/A; as9 16:55 Body Mass Index 34.33 (90.72 kg, 162.56 cm) ph ED Course: 16:54 Patient arrived in ED. ph 16:55 Howard Samaniego MD is Attending Physician. rt 16:58 Triage completed. ph 17:00 Arm band placed on left wrist. Patient placed in waiting room. ph 17:36 Attending Physician role handed off by Howard Samaniego MD ms3 17:36 Jose Shah DO is Attending Physician. ms3 17:49 XRAY Chest (1 view) In Process Unspecified. EDMS 17:53 Attending Physician role handed off by Jose Shah DO ms3 17:53 Howard Samaniego MD is Attending Physician. ms3 18:05 Missed attempt(s): 22 gauge in right upper arm. Bleeding controlled, band aid applied, ll1 catheter tip intact. 18:11 Patient has correct armband on for positive identification. Placed in gown. Bed in low ld1 position. Call light in reach. Side rails up X2. court recording monitor on. Pulse ox on. NIBP on. Door closed. Noise minimized. Warm blanket given. 18:11 Inserted saline lock: 22 gauge in right ,using aseptic technique. foot Blood collected. ll1 18:11 No provider procedures requiring assistance completed. ld1 18:12 Wanda Shah, RN is Primary Nurse. ld1 19:50 Provided Education on: discharge instruction and follow up given and explained well to as9 the patient. 19:50 IV discontinued, intact, bleeding controlled, No redness/swelling at site. Pressure as9 dressing applied. Administered Medications: 18:59 Drug: hydrALAZINE IVP 20 mg IVP once; For SBP > 140 mmHg. Hold if less than 120 mmHg. rv {Note: left foot.} Route: IVP; Site: Other; 20:01 Follow up: Response: No adverse reaction; Marked relief of symptoms as9 19:40 Drug: diphenhydrAMINE PO 25 mg PO once Route: PO; as9 19:50 Follow up: Response: No adverse reaction; Marked relief of symptoms as9 Medication: 18:11 VIS not applicable for this client. ld1 Outcome: 19:38 Discharge ordered by . rt 19:57 Discharged to home ambulatory, as9 19:57 Condition: good 19:57 Discharge instructions given to patient, Instructed on discharge instructions, follow up and referral plans. Demonstrated understanding of instructions, follow-up care, 20:00 Patient left the ED. as9 Signatures: Dispatcher [employer] EDSolange Marrero, RN RN Scott Butler, RN RN Yanira Mandel RN RN ll1 Jose Shah DO DO ms3 Wanda Shah RN RN ld1 Howard Samaniego MD MD rt Santiago, Aaron, RN RN as9
--- NOTE | 2023-07-12 19:39 | EDPHYS ---
Physician Documentation [facility] Name: Marjan Kolb Age: 68 yrs Sex: Female : 1955 Arrival Date: 07/12/2023 Time: 16:49 Bed 6 Private MD: ED Physician Howard Samaniego HPI: 07/12 17:33 This 68 yrs old Female presents to ER via EMS with complaints of Shortness Of Breath. ms3 17:33 68-year-old female past medical history of anxiety, atrial fibrillation, bipolar, COPD, ms3 esophageal varices, HIV presents to the emergency department for shortness of breath that began today. Patient notes she does have itching and nausea. Patient denies vomiting. Patient states her discomfort is a 9/10. Patient denies any alleviating or inciting factors.. Historical: - Allergies: 16:58 Azithromycin; ph 16:58 Bactrim; ph 16:58 butorphanol; ph 16:58 Fentanyl; ph 16:58 Reglan; ph 16:58 Sulfa (Sulfonamide Antibiotics); ph 16:58 TRIMETHOPRIM; ph - Home Meds: 16:59 hydralazine 50 mg Oral tablet [Active]; metoprolol tartrate 50 mg Oral tablet 2 times ph per day [Active]; - PMHx: 16:58 Anxiety; Atrial fibrillation; Bipolar disorder; COPD (Cholecystectomy); esophageal ph varicies; Hepatitis; angina pectoris; Hypertensive disorder; HIV positive; panic attack; Migraine; - PSHx: 16:58 Cholecystectomy; Appendectomy; ph - Immunization history:: Client reports receiving the 2nd dose of the Covid vaccine. - Social history:: Smoking status: Patient denies any tobacco usage or history of. ROS: 17:33 Constitutional: Negative for fever, and chills. Neck: Negative for injury, pain, and ms3 swelling, Cardiovascular: Negative for chest pain, and palpitations. 17:33 MS/Extremity: Negative for injury and deformity, Skin: Negative for injury, rash, and discoloration, 17:33 Respiratory: Positive for shortness of breath, Exam: 17:33 Constitutional: This is a well developed, well nourished patient who is awake, alert, ms3 and in no acute distress. Head/Face: Normocephalic, atraumatic. Neck: Trachea midline, no cervical lymphadenopathy. Supple, full range of motion without nuchal rigidity, or vertebral point tenderness. No Meningismus. Chest/axilla: Normal chest wall appearance and motion. Nontender with no deformity. Cardiovascular: Regular rate and rhythm with a normal S1 and S2. No gallops, murmurs, or rubs. Normal PMI, no JVD. No pulse deficits. Respiratory: Lungs have equal breath sounds bilaterally, clear to auscultation and percussion. No rales, rhonchi or wheezes noted. No increased work of breathing, no retractions or nasal flaring. Abdomen/GI: Soft, non-tender, with normal bowel sounds. No distension or tympany. No guarding or rebound. No evidence of tenderness throughout. Skin: Warm, dry with normal turgor. Normal color with no rashes, no lesions, and no evidence of cellulitis. MS/ Extremity: Pulses equal, no cyanosis. Neurovascular intact. Full, normal range of motion. 18:37 ECG was reviewed by the Attending Physician. rt Vital Signs: 16:55 BP 190 / 100; Pulse 60; Resp 18; Temp 97.9(O); Pulse Ox 98% ; Weight 90.72 kg; Height 5 ph ft. 4 in. ; 18:09 BP 221 / 109; Pulse 67; Resp 18; Pulse Ox 100% on R/A; ld1 19:00 BP 212 / 119; Pulse 70; Resp 18; Pulse Ox 97% on R/A; as9 19:50 BP 198 / 93; Pulse 68; Resp 18; Temp 97.8; Pulse Ox 97% on R/A; as9 16:55 Body Mass Index 34.33 (90.72 kg, 162.56 cm) ph MDM: 17:26 Patient medically screened. rt 17:33 Differential diagnosis: Anemia Chronic Obstructive Pulmonary Disease Myocardial ms3 Infarction pneumonia, pulmonary edema. 17:53 Transition of care: After a detail discussion of the patient's case, care is ms3 transferred to Howard Samaniego MD. 20:09 Data reviewed: vital signs, nurses notes, lab test result(s), EKG, radiologic studies. rt Consideration of Admission/Observation Escalation of care including admission/observation considered. Labs stable, vital signs stable, no indications for admission at this time.. Independent interpretation of the following test(s) in the Emergency Department X-Ray: My interpretation is No pulmonary edema seen on interpretation of x-ray images. Care significantly affected by the following chronic conditions: Chronic Obstructive Pulmonary Disease. Counseling: I had a detailed discussion with the patient and/or guardian regarding the historical points, exam findings, and any diagnostic results supporting the discharge/admit diagnosis, lab results, radiology results, the need for outpatient follow up. 07/12 17:35 Order name: Basic Metabolic Panel; Complete Time: 18:55 ms3 07/12 17:35 Order name: CBC with Diff; Complete Time: 18:35 ms3 07/12 17:35 Order name: LFT's; Complete Time: 18:55 ms3 07/12 17:35 Order name: Magnesium; Complete Time: 18:55 ms3 07/12 17:35 Order name: NT PRO-BNP; Complete Time: 18:55 ms3 07/12 17:35 Order name: Troponin HS; Complete Time: 18:55 ms3 07/12 17:35 Order name: XRAY Chest (1 view); Complete Time: 18:04 ms3 07/12 17:35 Order name: EKG; Complete Time: 17:36 ms3 07/12 17:35 Order name: Cardiac monitoring; Complete Time: 18:08 ms3 07/12 17:35 Order name: EKG - Nurse/Tech; Complete Time: 18:08 ms3 07/12 17:35 Order name: IV Saline Lock; Complete Time: 18:09 ms3 07/12 17:35 Order name: Labs collected and sent; Complete Time: 18:09 ms3 07/12 17:35 Order name: O2 Per Protocol; Complete Time: 17:49 ms3 07/12 17:35 Order name: O2 Sat Monitoring; Complete Time: 17:49 ms3 EC:37 Rate is 56 beats/min. Rhythm is regular, Sinus bradycardia with No ectopy. NC interval rt is normal. QRS interval is normal. QT interval is normal. No Q waves. Clinical impression: NSR w/ Non-specific ST/T Changes. Administered Medications: 18:59 Drug: hydrALAZINE IVP 20 mg IVP once; For SBP > 140 mmHg. Hold if less than 120 mmHg. rv {Note: left foot.} Route: IVP; Site: Other; 20:01 Follow up: Response: No adverse reaction; Marked relief of symptoms as9 19:40 Drug: diphenhydrAMINE PO 25 mg PO once Route: PO; as 19:50 Follow up: Response: No adverse reaction; Marked relief of symptoms as9 Disposition Summary: 07/12/23 19:38 Discharge Ordered Notes: Location: Home rt Problem: an ongoing problem rt Symptoms: have improved rt Condition: Stable rt Diagnosis - COPD/ Chronic obstructive pulmonary disease, unspecified rt Followup: rt - With: Private Physician - When: 2 - 3 days - Reason: Discharge Instructions: - Discharge Summary Sheet rt - Chronic Obstructive Pulmonary Disease rt Forms: - Medication Reconciliation Form rt - Thank You Letter rt - Antibiotic Education rt - Prescription Opioid Use rt - Patient Portal Instructions rt - Leadership Thank You Letter rt Signatures: Dispatcher [employer] EDSolange Marrero RN RN Scott Yates RN RN Jose Mccann DO DO ms3 Howard Samaniego MD MD rt Damián Khoury RN RN as9
[2023-07-12 20:27] VITALS: O2SAT 97
[2023-07-12 20:47] VITALS: BP 198/93; TEMP 97.8
== END ==
LOC: ER 16:49
DX: J44.9 Chronic obstructive pulmonary disease, unspecified (principal); R11.0 Nausea; F41.9 Anxiety disorder, unspecified; I10 Essential (primary) hypertension; I48.91 Unspecified atrial fibrillation; Z21 Asymptomatic human immunodeficiency virus [HIV] infection status; Z88.1 Allergy status to other antibiotic agents; Z88.2 Allergy status to sulfonamides; Z88.5 Allergy status to narcotic agent; Z88.8 Allergy status to other drugs, medicaments and biological substances
CPT/HCPCS: 36415; 71045; 80048; 80076; 83735; 83880; 84484; 85025; 93005; J0360; Q0169

== ENCOUNTER → 2023-07-27 | Emergency (ER) | payer OTHER ==
--- NOTE | 2023-07-27 13:37 | EDPHYS ---
Physician Documentation [facility] Name: Marjan Kolb Age: 68 yrs Sex: Female : 1955 Arrival Date: 07/27/2023 Time: 10:50 Bed IW1 Private MD: ED Physician Ramon Baker HPI: 07/26 11:49 This 68 yrs old Female presents to ER via Wheelchair with complaints of Fall Injury, rn Head Injury-Adult. 11:49 Details of fall: The patient fell from an upright position, while walking. Onset: The rn symptoms/episode began/occurred just prior to arrival. Associated injuries: The patient sustained injury to the head. Severity of symptoms: At their worst the symptoms were mild, in the emergency department the symptoms are unchanged. The patient has not experienced similar symptoms in the past. Patient reports taking out the trash, slipped and hit the back of head on concrete. Patient reports head and neck pain. No LOC. Remembers all events. Denies any injury below the neck. No hip or extremity injury.. Historical: - Allergies: 11:15 Azithromycin; bp 11:15 Bactrim; bp 11:15 butorphanol; bp 11:15 Fentanyl; bp 11:15 Reglan; bp 11:15 Sulfa (Sulfonamide Antibiotics); bp 11:15 TRIMETHOPRIM; bp - PMHx: 11:15 Anxiety; angina pectoris; Atrial fibrillation; Bipolar disorder; COPD bp (Cholecystectomy); esophageal varicies; Hepatitis; HIV positive; Hypertensive disorder; Migraine; panic attack; - PSHx: 11:15 Appendectomy; Cholecystectomy; bp - Immunization history:: Adult Immunizations up to date. - Social history:: Smoking status: Patient reports the use of cigarette tobacco products, unknown amount. - Family history:: not pertinent. - Hospitalizations: : No recent hospitalization is reported. ROS: 11:49 Constitutional: Negative for fever, chills, and weight loss, Cardiovascular: Negative rn for chest pain, palpitations, and edema, Respiratory: Negative for shortness of breath, cough, wheezing, and pleuritic chest pain, Abdomen/GI: Negative for abdominal pain, nausea, vomiting, diarrhea, and constipation, MS/Extremity: Negative for injury and deformity, Neuro: Negative for weakness, numbness, tingling, and seizure Exam: 11:49 Constitutional: This is a well developed, well nourished patient who is awake, alert, rn and in no acute distress. Head/Face: Normocephalic, atraumatic. Neck: No midline cervical tenderness Cardiovascular: Bradycardic, regular. Respiratory: No increased work of breathing, no retractions or nasal flaring. Abdomen/GI: Soft, non-tender MS/ Extremity: Pulses equal, no cyanosis. Neuro: Awake and alert, GCS 15, oriented to person, place, time, and situation. Cranial nerves II-XII grossly intact. Motor strength 5/5 in all extremities. Sensory grossly intact. Cerebellar exam normal. Vital Signs: 11:14 BP 153 / 81; Pulse 58; Resp 16; Temp 98; Pulse Ox 98% ; bp MDM: 11:06 Patient medically screened. rn 13:42 Differential diagnosis: closed head injury, contusion, fracture. Refusal of service: rn The patient/guardian displays adequate decision making capability and despite a detailed discussion of alternatives, benefits, risks, and consequences refuses: CT Scan. ED course: Patient initially agreed on obtaining CT scan and receiving Tylenol for pain, was taken back to the lobby to wait for room and she notified triage that she did not want to wait and did not want to get a CT or receive medication. Understands the risks of not obtaining imaging. Patient has left the ER on her own free well. Administered Medications: No medications were administered Disposition Summary: 07/27/23 13:43 Discharge Ordered Notes: Location: Home(07/27/23 13:43) rn Problem: new rn Symptoms: have improved rn Condition: Stable(07/27/23 13:43) rn Diagnosis - Unspecified injury of head, initial encounter rn Followup: rn - With: Private Physician - When: As needed - Reason: Recheck today's complaints, Re-evaluation by your physician Discharge Instructions: - Discharge Summary Sheet rn - Head Injury, Adult rn Forms: - Medication Reconciliation Form rn - Thank You Letter rn - Antibiotic summer internship - Prescription Opioid Use rn - Patient Portal Instructions rn - Leadership Thank You Letter rn Signatures: Dispatcher [employer] EDMS Ramon Baker MD MD rn Peltier, Brian, RN RN bp Bradberry, Kelly, RN RN kb3 Corrections: (The following items were deleted from the chart) 13:43 13:36 Home kb3 rn 13:43 13:36 Stable kb3 rn
--- NOTE | 2023-07-27 13:37 | ER ---
Nurse's Notes [facility] Name: Marjan Kolb Age: 68 yrs Sex: Female : 1955 Arrival Date: 07/27/2023 Time: 10:50 Bed IW1 Private MD: Diagnosis: Unspecified injury of head, initial encounter Presentation: 07/26 11:14 Chief complaint: Patient states: FALL FROM STANDING THIS AM. Coronavirus screen: At bp this time, the client does not indicate any symptoms associated with coronavirus-19. Ebola Screen: No symptoms or risks identified at this time. Initial Sepsis Screen: Does the patient meet any 2 criteria? No. Patient's initial sepsis screen is negative. Does the patient have a suspected source of infection? No. Patient's initial sepsis screen is negative. Risk Assessment: Do you want to hurt yourself or someone else? Patient reports no desire to harm self or others. Onset of symptoms was July 27, 2023 at 10:00. 11:14 Method Of Arrival: Wheelchair bp 11:14 Acuity: BLAYNE 4 bp Triage Assessment: 11:15 General: Appears in no apparent distress. Behavior is cooperative, appropriate for age, bp anxious. Pain: Complains of pain in back of head. Historical: - Allergies: 11:15 Azithromycin; bp 11:15 Bactrim; bp 11:15 butorphanol; bp 11:15 Fentanyl; bp 11:15 Reglan; bp 11:15 Sulfa (Sulfonamide Antibiotics); bp 11:15 TRIMETHOPRIM; bp - PMHx: 11:15 Anxiety; angina pectoris; Atrial fibrillation; Bipolar disorder; COPD bp (Cholecystectomy); esophageal varicies; Hepatitis; HIV positive; Hypertensive disorder; Migraine; panic attack; - PSHx: 11:15 Appendectomy; Cholecystectomy; bp - Immunization history:: Adult Immunizations up to date. - Social history:: Smoking status: Patient reports the use of cigarette tobacco products, unknown amount. - Family history:: not pertinent. - Hospitalizations: : No recent hospitalization is reported. Assessment: 12:30 General: Pt refused CT and left ER ambulatory. Gait steady. No s/s of distress. kb3 Vital Signs: 11:14 BP 153 / 81; Pulse 58; Resp 16; Temp 98; Pulse Ox 98% ; bp ED Course: 10:53 Patient arrived in ED. mg5 11:06 Ramon Baker MD is Attending Physician. rn 11:14 Carlos Eduardo Olivera, RN is Primary Nurse. bp 11:15 Triage completed. bp 11:15 Arm band placed on. bp 12:20 Radiology exam delayed due to pt not in er lobby. nj 13:41 Primary Nurse role handed off by Carlos Eduardo Olivera, RN bp 13:41 Carlos Eduardo Olivera, RN is Primary Nurse. bp Administered Medications: No medications were administered Outcome: 13:35 AMA Left before signing form, kb3 13:35 Condition: stable 13:36 Patient left the ED. kb3 13:43 Discharge ordered by . rn 13:45 Patient left the ED. bp Signatures: Ramon Baker MD MD rn Jordan, Nathan nj Peltier, Brian, RN RN Ava Pritchard RN RN claudia Connie Mares mg5
[2023-07-27 14:14] VITALS: BP 153/81; TEMP 98; O2SAT 98
== END ==
LOC: ER 10:50
DX: S09.90XA Unspecified injury of head, initial encounter (principal); Z21 Asymptomatic human immunodeficiency virus [HIV] infection status; Z88.1 Allergy status to other antibiotic agents; Z88.2 Allergy status to sulfonamides; Z88.5 Allergy status to narcotic agent; Z88.8 Allergy status to other drugs, medicaments and biological substances; Z72.0 Tobacco use
CPT/HCPCS: 99281

== ENCOUNTER → 2023-07-29 | Emergency (ER) | payer OTHER ==
[~2023-07-29] MED LIST changes: +ACETAMINOPHEN 500 MG TAB ONE; -DIPHENHYDRAMINE 25 MG TAB/CAP ONE; -HYDRALAZINE HCL 20 MG/ML VIAL ONE; +cloNIDine HCL 0.1 MG TAB ONE
--- NOTE | 2023-07-29 22:47 | ER ---
Nurse's Notes [facility] Name: Marjan Kolb Age: 68 yrs Sex: Female : 1955 Arrival Date: 07/29/2023 Time: 21:02 Bed IW10 Private MD: Diagnosis: Other headache syndrome;Essential (primary) hypertension Presentation: 07/28 21:09 Chief complaint: Patient states: head pain for 1 week; denies CP, n/v/d, or fever; km8 denies vision changes. Coronavirus screen: Client denies travel out of the [place] in the last 14 days. Ebola Screen: No symptoms or risks identified at this time. Initial Sepsis Screen: Does the patient meet any 2 criteria? No. Patient's initial sepsis screen is negative. Does the patient have a suspected source of infection? No. Patient's initial sepsis screen is negative. Risk Assessment: Do you want to hurt yourself or someone else? Patient reports no desire to harm self or others. Onset of symptoms was July 22, 2023. 21:09 Method Of Arrival: Wheelchair km8 21:09 Acuity: BLAYNE 3 km8 Triage Assessment: 21:11 General: Appears in no apparent distress. uncomfortable, Behavior is calm, cooperative, km8 appropriate for age. Pain: Complains of pain in head Pain currently is 10 out of 10 on a pain scale. EENT: No signs and/or symptoms were reported regarding the EENT system. Neuro: Level of Consciousness is awake, alert, obeys commands, Oriented to person, place, time, situation, Appropriate for age Reports headache. Cardiovascular: Denies chest pain, Patient's skin is warm and dry. Respiratory: Airway is patent Respiratory effort is even, unlabored, Respiratory pattern is regular, symmetrical. GI: No signs and/or symptoms were reported involving the gastrointestinal system. : No signs and/or symptoms were reported regarding the genitourinary system. Derm: Skin is intact, is healthy with good turgor, Skin is dry, Skin is pink, warm \T\ dry. normal, Skin temperature is warm. Musculoskeletal: No signs and/or symptoms reported regarding the musculoskeletal system. Range of motion: intact in all extremities. Historical: - Allergies: 21:11 Azithromycin; km8 21:11 Bactrim; km8 21:11 butorphanol; km8 21:11 Fentanyl; km8 21:11 Reglan; km8 21:11 Sulfa (Sulfonamide Antibiotics); km8 21:11 TRIMETHOPRIM; km8 - PMHx: 21:11 angina pectoris; Atrial fibrillation; Anxiety; Bipolar disorder; COPD km8 (Cholecystectomy); esophageal varicies; Hepatitis; HIV positive; Hypertensive disorder; Migraine; panic attack; - PSHx: 21:11 Appendectomy; Cholecystectomy; km8 - Immunization history:: Client reports receiving the 2nd dose of the Covid vaccine, Flu vaccine is up to date. - Social history:: Smoking status: Patient denies any tobacco usage or history of. Patient/guardian denies using alcohol, street drugs. - Family history:: not pertinent. Screenin:26 [facility] ED Fall Risk Assessment (Adult) History of falling in the last 3 months, mb9 including since admission No falls in past 3 months (0 pts) Confusion or Disorientation No (0 pts) Intoxicated or Sedated No (0 pts). Abuse screen: Denies threats or abuse. Nutritional screening: No deficits noted. Tuberculosis screening: No symptoms or risk factors identified. Assessment: 21:24 General: Appears in no apparent distress. Behavior is calm. Pain: Complains of pain in mb9 head Pain does not radiate. Pain currently is 10 out of 10 on a pain scale. Quality of pain is described as aching, dull, Pain began 1 wk ago Is intermittent. Neuro: Gonzalez Agitation-Sedation Scale (RASS): 0 - Alert and Calm Level of Consciousness is awake, alert, obeys commands, Oriented to person, place, time, situation, Appropriate for age Reports headache. Cardiovascular: Patient's skin is warm and dry. Respiratory: Airway is patent Respiratory effort is even, unlabored, Respiratory pattern is regular, symmetrical. GI: Abdomen is round non-distended, Reports nausea. : No signs and/or symptoms were reported regarding the genitourinary system. EENT: No signs and/or symptoms were reported regarding the EENT system. Derm: Skin is pink, warm \T\ dry. Musculoskeletal: Range of motion: intact in all extremities. 22:47 Reassessment: Patient appears in no apparent distress at this time. No changes from [facility] previously documented assessment. Patient and/or family updated on plan of care and expected duration. Pain level reassessed. Patient is alert, oriented x 3, equal unlabored respirations, skin warm/dry/pink. Vital Signs: 21:09 BP 180 / 86; Pulse 55; Resp 18; Temp 97.8(TE); Pulse Ox 99% on R/A; Weight 79.38 kg km8 (R); Height 5 ft. 4 in. (R); Pain 10/10; 21:43 BP 158 / 79; Pulse 62; Resp 18; Pulse Ox 99% on R/A; mb9 23:10 BP 173 / 94; Pulse 51; Resp 18; Pulse Ox 94% on R/A; km8 21:09 Body Mass Index 30.04 (79.38 kg, 162.56 cm) km8 21:09 Pain Scale: Adult km8 ED Course: 21:04 Patient arrived in ED. rg4 21:10 Dion Randhawa MD is Attending Physician. sp4 21:11 Triage completed. km8 21:11 Arm band placed on right wrist. km8 21:23 Jessie Cristina RN is Primary Nurse. mb9 21:25 Placed in gown. Bed in low position. Call light in reach. Side rails up X 1. Provided mb9 Education on: press call light when needing to use restroom. Client placed on continuous cardiac and pulse oximetry monitoring. NIBP monitoring applied. lead pony rider on. Door closed. Noise minimized. Warm blanket given. One-on-one care X 15 minutes. 21:25 No provider procedures requiring assistance completed. Patient did not have IV access mb9 during this emergency room visit. 21:26 Diet: Patient given ice chips. Patient given water. Tolerated well. mb9 22:04 Report given to Nazia RN. mb9 22:44 Warm blanket given. PO fluids given. km8 Administered Medications: 21:24 Drug: cloNIDine PO 0.2 mg PO once Route: PO; mb9 21:44 Follow up: Response: No adverse reaction mb9 21:24 Not Given (Patient Refused): [id number] mg PO once mb9 21:24 Drug: Promethazine PO 25 mg PO once Route: PO; mb9 21:43 Follow up: Response: No adverse reaction mb9 21:24 Drug: Acetaminophen PO 1000 mg PO once Route: PO; mb9 21:44 Follow up: Response: No adverse reaction mb9 Medication: 21:25 VIS not applicable for this client. mb9 Outcome: 22:47 Discharge ordered by . adis 23:12 Discharged to home via wheelchair, km8 23:12 Condition: good 23:12 Discharge instructions given to patient, Instructed on discharge instructions, follow up and referral plans. Demonstrated understanding of instructions, follow-up care, 23:13 Patient left the ED. km8 Signatures: Polina Camarillo Mary Beth RN RN mb9 Dion Randhawa MD MD sp4 Emelina Carmona RN RN km8 Corrections: (The following items were deleted from the chart) 21:47 21:43 BP 185 / 85; Pulse 62bpm; Resp 18bpm; Pulse Ox 97% RA; mb9 mb9
--- NOTE | 2023-07-29 22:47 | EDPHYS ---
Physician Documentation [facility] Name: Marjan Kolb Age: 68 yrs Sex: Female : 1955 Arrival Date: 07/29/2023 Time: 21:02 Bed IW10 Private MD: ED Physician Dion Randhawa HPI: 07/28 21:10 This 68 yrs old Female presents to ER via Unassigned with complaints of Head sp4 pain. 21:19 This is a 68-year-old female who presents with acute headache starting 1 week ago. sp4 Patient reports she has lesions on her scalp. The lesions are chronic. Patient has history of atrial fibrillation, anxiety, hypertension, angina, esophageal varices, hepatitis, HIV, bipolar. Patient is known to have frequent visits to the emergency room for multiple complaints, in the past there was concern for pain seeking behavior. . 21:22 Last visit for the headache was 07/27/2023. Reveals 252 prior emergency room visits for sp4 various complaints. Historical: - Allergies: 21:11 Azithromycin; km8 21:11 Bactrim; km8 21:11 butorphanol; km8 21:11 Fentanyl; km8 21:11 Reglan; km8 21:11 Sulfa (Sulfonamide Antibiotics); km8 21:11 TRIMETHOPRIM; km8 - PMHx: 21:11 angina pectoris; Atrial fibrillation; Anxiety; Bipolar disorder; COPD km8 (Cholecystectomy); esophageal varicies; Hepatitis; HIV positive; Hypertensive disorder; Migraine; panic attack; - PSHx: 21:11 Appendectomy; Cholecystectomy; km8 - Immunization history:: Client reports receiving the 2nd dose of the Covid vaccine, Flu vaccine is up to date. - Social history:: Smoking status: Patient denies any tobacco usage or history of. Patient/guardian denies using alcohol, street drugs. - Family history:: not pertinent. ROS: 21:22 Constitutional: Positive for headache sp4 21:22 All other systems are negative, Exam: 07/29 03:28 Constitutional: This is a well developed, well nourished patient who is awake, alert, sp4 and in no acute distress. Head/Face: Normocephalic, atraumatic. Patient has several actinic keratoses to the superior scalp Eyes: Pupils equal round and reactive to light, extra-ocular motions intact. Lids and lashes normal. Conjunctiva and sclera are not injected. Cornea within normal limits. Periorbital areas with no swelling, redness, or edema. ENT: Nares patent. No nasal discharge, no septal abnormalities noted. Tympanic membranes are normal and external auditory canals are clear. Oropharynx with no redness, swelling, or masses, exudates, or evidence of obstruction, uvula midline. Mucous membranes moist. Neck: Trachea midline, no thyromegaly or masses palpated, and no cervical lymphadenopathy. Supple, full range of motion without nuchal rigidity, or vertebral point tenderness. Chest/axilla: Normal chest wall appearance and motion. Nontender with no deformity. No lesions are appreciated. Cardiovascular: Regular rate and rhythm with a normal S1 and S2. No gallops, murmurs, or rubs. Normal PMI, no JVD. No pulse deficits. Respiratory: Lungs have equal breath sounds bilaterally, clear to auscultation and percussion. No rales, rhonchi or wheezes noted. No increased work of breathing, no retractions or nasal flaring. Abdomen/GI: Soft, with normal bowel sounds. No distension or tympany. No guarding or rebound. No evidence of tenderness throughout. Back: No spinal tenderness. No costovertebral tenderness. Skin: Warm, dry with normal turgor. Normal color with no rashes, no lesions, and no evidence of cellulitis. MS/ Extremity: Pulses equal, no cyanosis. Neurovascular intact. Full, normal range of motion. Neuro: Awake and alert, GCS 15, oriented to person, place, time, and situation. Cranial nerves II-XII grossly intact. Motor strength 5/5 in all extremities. Sensory grossly intact. Psych: Awake, alert, with orientation to person, place and time. Behavior, mood, and affect are within normal limits Vital Signs: 07/28 21:09 BP 180 / 86; Pulse 55; Resp 18; Temp 97.8(TE); Pulse Ox 99% on R/A; Weight 79.38 kg km8 (R); Height 5 ft. 4 in. (R); Pain 10/10; 21:43 BP 158 / 79; Pulse 62; Resp 18; Pulse Ox 99% on R/A; mb9 23:10 BP 173 / 94; Pulse 51; Resp 18; Pulse Ox 94% on R/A; km8 21:09 Body Mass Index 30.04 (79.38 kg, 162.56 cm) km8 21:09 Pain Scale: Adult km8 MDM: 21:49 Patient medically screened. sp4 07/29 03:28 Differential Diagnosis ,Tension headache, Cluster headache, hypertensive urgency. Data sp4 reviewed: vital signs, nurses notes, old medical records. Consideration of Admission/Observation Escalation of care including admission/observation considered. ED course: Patient's blood pressure has improved after clonidine. Patient was discharged home in stable condition. Administered Medications: 07/28 21:24 Drug: cloNIDine PO 0.2 mg PO once Route: PO; mb9 21:44 Follow up: Response: No adverse reaction mb9 21:24 Not Given (Patient Refused): [id number] mg PO once mb9 21:24 Drug: Promethazine PO 25 mg PO once Route: PO; mb9 21:43 Follow up: Response: No adverse reaction mb9 21:24 Drug: Acetaminophen PO 1000 mg PO once Route: PO; mb9 21:44 Follow up: Response: No adverse reaction mb9 Disposition Summary: 07/29/23 22:47 Discharge Ordered Problem: new sp4 Symptoms: have improved sp4 Condition: Stable sp4 Diagnosis - Other headache syndrome sp4 - Essential (primary) hypertension sp4 Followup: sp4 - With: Private Physician - When: 7 - 10 days - Reason: Recheck today's complaints Discharge Instructions: - Discharge Summary Sheet sp4 - Hypertension, Adult sp4 Forms: - Patient Portal Instructions sp4 Signatures: Jessie Cristina RN RN mb9 Dion Randhawa MD MD sp4 Emelina Carmona RN RN km8 Corrections: (The following items were deleted from the chart) 21:22 21:22 Last visit for the headache was 07/27/2023. Reveals 225 prior emergency room sp4 visits for various complaints. sp4
[2023-07-29 23:40] VITALS: BP 173/94; TEMP 97.8; O2SAT 94
== END ==
LOC: ER 21:02
DX: G44.89 Other headache syndrome (principal); I10 Essential (primary) hypertension; Z21 Asymptomatic human immunodeficiency virus [HIV] infection status; Z88.1 Allergy status to other antibiotic agents; Z88.2 Allergy status to sulfonamides; Z88.5 Allergy status to narcotic agent; Z88.8 Allergy status to other drugs, medicaments and biological substances
CPT/HCPCS: 99284; Q0169

== ENCOUNTER → 2023-08-01 | Emergency (ER) | payer OTHER ==
--- NOTE | 2023-08-01 17:47 | RAD REPORT ---
EXAM DESCRIPTION: Patrick Single View08/01/2023 5:11 pm CLINICAL HISTORY: Chest pain COMPARISON: June 2023 FINDINGS: The lungs appear clear of acute infiltrate. The heart is mildly to moderately enlarged IMPRESSION: No acute abnormalities displayed
--- NOTE | 2023-08-01 20:10 | ER ---
Nurse's Notes [facility] Name: Marjan Kolb Age: 68 yrs Sex: Female : 1955 Arrival Date: 08/01/2023 Time: 15:35 Bed IW1 Private MD: Lele Rahman H Diagnosis: Presentation: 07/31 16:29 Chief complaint: Patient states: I started having chest pains today after my nap. It is kd3 03/01 and it is causing me some shortness of breath. Coronavirus screen: Vaccine status: Patient reports receiving the 2nd dose of the covid vaccine. Ebola Screen: No symptoms or risks identified at this time. Initial Sepsis Screen: Does the patient meet any 2 criteria? No. Patient's initial sepsis screen is negative. Does the patient have a suspected source of infection? No. Patient's initial sepsis screen is negative. Risk Assessment: Do you want to hurt yourself or someone else? Patient reports no desire to harm self or others. Onset of symptoms was August 01, 2023. 16:29 Method Of Arrival: EMS: [facility] kd3 16:29 Acuity: BLAYNE 3 kd3 Triage Assessment: 16:30 General: Appears in no apparent distress. Behavior is calm, cooperative. Pain: kd3 Complains of pain in chest. Cardiovascular: Patient's skin is warm and dry. Historical: - Allergies: 16:30 Reglan; kd3 16:30 Bactrim; kd3 16:30 Azithromycin; kd3 16:30 Fentanyl; kd3 16:30 Sulfa (Sulfonamide Antibiotics); kd3 16:30 TRIMETHOPRIM; kd3 16:30 butorphanol; kd3 - PMHx: 16:30 angina pectoris; Anxiety; esophageal varicies; Hepatitis; Hypertensive disorder; kd3 Hypertensive disorder; COPD (Cholecystectomy); COPD (Cholecystectomy); Bipolar disorder; Atrial fibrillation; Atrial fibrillation; Migraine; Migraine; panic attack; panic attack; HIV positive; - PSHx: 16:30 Cholecystectomy; Appendectomy; kd3 - Immunization history:: Adult Immunizations up to date. - Social history:: Smoking status: Patient/guardian denies using tobacco products. Assessment: 20:09 General: Pt Eloped prior to having a room assigned. . kd3 Vital Signs: 16:29 BP 174 / 98; Pulse 79; Resp 18; Temp 98(O); Pulse Ox 96% on R/A; Weight 79.38 kg; kd3 ED Course: 15:37 Patient arrived in ED. rg4 15:38 Lele Rahman DO is Private Physician. rg4 15:38 Yayo August MD is Attending Physician. ec2 16:29 EKG completed in triage. Results shown to MD. kd3 16:29 EKG done, by ED staff, reviewed by Yayo August MD. kd3 16:30 Triage completed. kd3 16:30 Arm band placed on right wrist. kd3 17:13 XRAY Chest (1 view) In Process Unspecified. EDMS Administered Medications: No medications were administered Outcome: 20:10 Patient left the ED. kd3 Signatures: Dispatcher [employer] EDMS Polina Camarillo rg4 Shereen Marinelli, RN RN kd3 Yayo August MD MD ec2
--- NOTE | 2023-08-01 20:10 | EDPHYS ---
Physician Documentation [facility] Name: Marjan Kolb Age: 68 yrs Sex: Female : 1955 Arrival Date: 08/01/2023 Time: 15:35 Bed IW1 Private MD: Lele Rahman H ED Physician Yayo August HPI: 07/31 16:26 This 68 yrs old Female presents to ER via Unassigned with complaints of Chest ec2 Pain. 16:26 Patient with history of HIV and COPD arrives today for chest pain. Symptoms have been ec2 ongoing for couple of hours. No specific alleviating or exacerbating factors. Patient reports no cough and cold symptoms. Patient report some chronic shortness of breath as well.. Historical: - Allergies: 16:30 Reglan; kd3 16:30 Bactrim; kd3 16:30 Azithromycin; kd3 16:30 Fentanyl; kd3 16:30 Sulfa (Sulfonamide Antibiotics); kd3 16:30 TRIMETHOPRIM; kd3 16:30 butorphanol; kd3 - PMHx: 16:30 angina pectoris; Anxiety; esophageal varicies; Hepatitis; Hypertensive disorder; kd3 Hypertensive disorder; COPD (Cholecystectomy); COPD (Cholecystectomy); Bipolar disorder; Atrial fibrillation; Atrial fibrillation; Migraine; Migraine; panic attack; panic attack; HIV positive; - PSHx: 16:30 Cholecystectomy; Appendectomy; kd3 - Immunization history:: Adult Immunizations up to date. - Social history:: Smoking status: Patient/guardian denies using tobacco products. ROS: 16:26 Constitutional: as per hpi ec2 Exam: 16:26 Constitutional: GEN: NAD Head: atraumatic Eyes: EOMI Ears: External ears are ec2 normal. CV: regular rate LUNGS: no respiratory distress ABD: non-distended SKIN: no evidence of rashes MSK: no evidence of trauma NEURO: moves all extremities equally Vital Signs: 16:29 BP 174 / 98; Pulse 79; Resp 18; Temp 98(O); Pulse Ox 96% on R/A; Weight 79.38 kg; kd3 MDM: 16:26 Patient medically screened. ec2 16:26 Data reviewed: vital signs. ED course: Patient arrives today for evaluation of chest ec2 pain. Examination remarkable for well-appearing nontoxic dividual with reassuring vital signs. Will obtain lab work, EKG, chest x-ray for further assessment of his complaint. Currently evaluating for ACS, doubt PE or dissection. Additionally considering COPD exacerbation.. 16:37 ED course: EKG independently reviewed and interpreted by me, shows normal sinus rhythm, ec2 rate of 83, no acute ST segment elevations, intervals show QTc prolongation.. 18:07 ED course: Chest x-ray shows no acute intrathoracic process. . ec2 20:21 ED course: Patient eloped prior to completion of above workup. ec2 07/31 16:26 Order name: XRAY Chest (1 view); Complete Time: 18:07 ec2 07/31 16:26 Order name: EKG; Complete Time: 16:26 ec2 07/31 16:26 Order name: Cardiac monitoring ec2 07/31 16:26 Order name: EKG - Nurse/Tech; Complete Time: 17:34 ec2 07/31 16:26 Order name: IV Saline Lock ec2 07/31 16:26 Order name: Labs collected and sent ec2 07/31 16:26 Order name: O2 Per Protocol ec2 07/31 16:26 Order name: O2 Sat Monitoring ec2 Administered Medications: No medications were administered Disposition Summary: 08/01/23 20:09 Eloped Notes: Disposition: after being seen by provider kd3 Reason: wait time kd3 Signatures: Dispatcher [employer] Shereen Rodas RN RN kd3 Yayo August MD MD ec2
[2023-08-01 20:22] VITALS: BP 174/98; TEMP 98; O2SAT 96
== END | disposition left against medical advice (07) ==
LOC: ER 15:35
DX: R07.9 Chest pain, unspecified (principal); J44.9 Chronic obstructive pulmonary disease, unspecified; Z21 Asymptomatic human immunodeficiency virus [HIV] infection status
CPT/HCPCS: 71045

== ENCOUNTER → 2023-08-08 | Emergency (ER) | payer OTHER ==
[~2023-08-08] MED LIST changes: -ACETAMINOPHEN 500 MG TAB ONE; +ASPIRIN 81 MG CHEWABLE TABLET ONE; +HYDRALAZINE HCL 10 MG TABLET ONE; +HYDRALAZINE HCL 20 MG/ML VIAL ONE; +MORPHINE 4 MG/ML SYR ONE; +NITROGLYCERIN 0.4 MG/TAB SL ONE; +ONDANSETRON 4 MG/2 ML VIAL ONE; -PROMETHAZINE 25 MG TABLET ONE; -cloNIDine HCL 0.1 MG TAB ONE
[2023-08-08 18:14] LABS: Absolute Eosinophils 0.1 K/uL (0-0.5); Absolute Monocytes 0.6 K/uL (0.1-1.3); Absolute Neutrophil 3.5 K/uL (1.8-8.0); Basophils % 0.4 % (0-1.3); Eosinophils % 1.3 % (0-4.4); Hematocrit 36.2 % (36.0-45.0); Lymphocytes % 19.9 % (15.3-44.8); MCH 27.1 pg (27.0-35.0); MCHC 33.3 g/dL (32.0-36.0); MCV 81.5 fL (80-100); MPV 6.5 fL (7.6-11.3); Neutrophils % 67.4 % (41.7-73.7); Nucleated Red Blood Cells % 0.3 % (0-0); Platelets 157 thou/uL (152-406); RBC Red Blood Cell Count 4.43 M/uL (3.86-4.86); Red Cell Distribution Width 16.7 % (12.1-15.2)
[2023-08-08 18:17] LABS: Protime INR 1.09
[2023-08-08 18:35] LABS: Albumin 3.4 g/dL (3.4-5.0); Albumin/Globulin Ratio 0.9 (1.1-1.8); Anion Gap 3.3 mEq/L (5.0-15.0); Bilirubin Direct 0.2 mg/dL (0-0.2); Bilirubin Indirect, Calculated 0.2 mg/dL (0.2-0.8); Bilirubin Total 0.4 mg/dL (0.2-1.0); Globulin 3.9 g/dL (2.3-3.5); Magnesium 2.2 mg/dL (1.6-2.4); Potassium 3.3 mEq/L (3.5-5.1); Protein, Total 7.3 g/dL (6.4-8.2); Troponin High Sensitivity 13.2 pg/mL (<58.9)
--- NOTE | 2023-08-08 18:47 | RAD REPORT ---
[facility] DES[facility] 6[facility]07 pm CLINICAL HISTORY: CHEST PAIN COMPARISON: Chest Single View dated 08/01/2023; Chest Single View dated 07/12/2023; Chest Single View dated 07/06/2023; Chest Single View dated 06/26/2023 TECHNIQUE: Portable AP view of the chest. FINDINGS: The lungs are clear. No pneumothorax or effusion. The cardiomediastinal contours are unch anged with prominence of the central vascular markings, which may indicate pulmonary engorgement/hype rtension. Bilateral shoulder arthroplasty hardware in place. IMPRESSION: No acute cardiopulmonary process. Stable findings as above.
--- NOTE | 2023-08-08 20:19 | ER ---
Nurse's Notes [facility] Name: Marjan Kolb Age: 68 yrs Sex: Female : 1955 Arrival Date: 08/08/2023 Time: 17:50 Bed 3 Private MD: Diagnosis: Essential (primary) hypertension Presentation: 08/07 17:52 Chief complaint: Patient states: SOB and CP since last night. EMS states: BP super ll1 elevated, vitals otherwise WNL. Coronavirus screen: Client denies travel out of the [place] in the last 14 days. At this time, the client does not indicate any symptoms associated with coronavirus-19. Ebola Screen: Patient denies travel to an Ebola-affected area in the 21 days before illness onset. Initial Sepsis Screen: Does the patient meet any 2 criteria? No. Patient's initial sepsis screen is negative. Does the patient have a suspected source of infection? No. Patient's initial sepsis screen is negative. Risk Assessment: Do you want to hurt yourself or someone else? Patient reports no desire to harm self or others. Onset of symptoms was August 07, 2023. 17:52 Method Of Arrival: EMS ll1 17:52 Acuity: BLAYNE 2 ll1 Triage Assessment: 17:55 General: Appears uncomfortable, Behavior is calm, cooperative, appropriate for age. ll1 Pain: Complains of pain in chest Pain currently is 10 out of 10 on a pain scale. Quality of pain is described as aching. Cardiovascular: Reports chest pain, palpitations, shortness of breath. Historical: - Allergies: 17:54 Azithromycin; ll1 17:54 Bactrim; ll1 17:54 butorphanol; ll1 17:54 Fentanyl; ll1 17:54 Reglan; ll1 17:54 Sulfa (Sulfonamide Antibiotics); ll1 17:54 TRIMETHOPRIM; ll1 - PMHx: 17:54 angina pectoris; Anxiety; Atrial fibrillation; Bipolar disorder; COPD ll1 (Cholecystectomy); esophageal varicies; Hepatitis; HIV positive; Hypertensive disorder; Migraine; panic attack; - PSHx: 17:54 Appendectomy; Cholecystectomy; ll1 - Immunization history:: Adult Immunizations up to date. - Social history:: Smoking status: Patient reports the use of cigarette tobacco products, smokes one-half pack cigarettes per day. Screenin:14 [facility] ED Fall Risk Assessment (Adult) History of falling in the last 3 months, ll1 including since admission No falls in past 3 months (0 pts) Confusion or Disorientation No (0 pts) Intoxicated or Sedated No (0 pts) Impaired Gait No (0 pts) Mobility Assist Device Used No (0 pt) Altered Elimination No (0 pt) Score/Fall Risk Level 0 - 2 = Low Risk Maintained a safe environment, Hourly rounding (assess needs \T\ fall precautionary measures) done. Abuse screen: Denies threats or abuse. Nutritional screening: No deficits noted. Tuberculosis screening: No symptoms or risk factors identified. Assessment: 18:50 Reassessment: No changes from previously documented assessment. Patient and/or family ll1 updated on plan of care and expected duration. Pain level reassessed. Patient is alert, oriented x 3, equal unlabored respirations, skin warm/dry/pink. 19:04 Reassessment: No changes from previously documented assessment. Notified that Meaghan Mendez ll1 PA is aware she wants an additional dose of pain medication. 19:05 Reassessment: Patient is alert, oriented x 3, equal unlabored respirations, skin as9 warm/dry/pink. 19:05 General: Appears in no apparent distress. Behavior is calm, cooperative. Neuro: Level as9 of Consciousness is awake, alert, obeys commands, Oriented to person, place, situation, Appropriate for age. Cardiovascular: Capillary refill < 3 seconds Patient's skin is warm and dry. Respiratory: Airway is patent Respiratory effort is even, unlabored, Respiratory pattern is regular, symmetrical. GI: No signs and/or symptoms were reported involving the gastrointestinal system. : No signs and/or symptoms were reported regarding the genitourinary system. EENT: No signs and/or symptoms were reported regarding the EENT system. Derm: Skin is intact, Skin is pink, warm \T\ dry. Musculoskeletal: Circulation, motion, and sensation intact. Range of motion: intact in all extremities. Vital Signs: 17:52 BP 233 / 121; Pulse 58; Resp 18; Temp 98; Pulse Ox 99% on 2 lpm NC; Weight 79.38 kg; ll1 Height 5 ft. 4 in. ; Pain 10/10; 18:24 BP 219 / 111; Pulse 62; Pulse Ox 99% ; ll1 19:03 BP 195 / 97; Pulse 59; Resp 18; Pulse Ox 99% on 2 lpm NC; ll1 20:15 BP 159 / 102; Pulse 59; Resp 16; Pulse Ox 96% ; rv 17:52 Body Mass Index 30.04 (79.38 kg, 162.56 cm) ll1 17:52 Pain Scale: Adult 1 ED Course: 17:52 Patient arrived in ED. ll1 17:52 [facility]. sb4 17:52 Yayo August MD is Attending Physician. sb4 17:52 Yanira De Jesus, ASHLEY is Primary Nurse. ll1 17:54 Triage completed. ll1 17:55 No provider procedures requiring assistance completed. Initial lab(s) drawn, by az, ll1 sent to lab. EKG done, by ED staff, reviewed by Daysi Mendez PA-C. Inserted saline lock: 22 gauge in right ,using aseptic technique. foot Blood collected. 17:55 Arm band placed on Patient placed in an exam room, on a stretcher. ll1 17:55 Patient has correct armband on for positive identification. Bed in low position. ll1 Provided Education on: ER procedures and process. Client placed on continuous cardiac and pulse oximetry monitoring. NIBP monitoring applied. environmental monitoring technician on. 18:08 XRAY Chest (1 view) In Process Unspecified. EDMS 20:19 Mike Lund MD is Referral Physician. sb4 20:30 IV discontinued, intact, bleeding controlled, No redness/swelling at site. Pressure rv dressing applied. Administered Medications: 18:22 Drug: morphine IVP or IV 4 mg IVP once over 4 mins Route: IVP; Infused Over: 4 mins; ll1 Site: Other; 20:32 Follow up: Response: No adverse reaction; Marked relief of symptoms rv 18:22 Drug: Ondansetron IVP 4 mg IVP once; over 2 minutes Route: IVP; Site: Other; ll1 20:32 Follow up: Response: No adverse reaction; Marked relief of symptoms rv 18:22 Not Given (Patient Refused): nitroglycerin0.4 mg Sublingual once; every five minute if ll1 needed x3 18:22 Drug: hydrALAZINE IVP 10 mg IVP once Route: IVP; Site: Other; ll1 20:32 Follow up: Response: No adverse reaction; Marked relief of symptoms rv 18:23 Drug: Aspirin PO Chewable Tablet 324 mg PO once; 81 mg tablets x 4 Route: PO; ll1 20:33 Follow up: Response: No adverse reaction; Marked relief of symptoms rv Medication: 19:15 VIS not applicable for this client. ll1 Outcome: 20:19 Discharge ordered by . sb4 20:30 Discharged to home ambulatory, rv 20:30 Condition: good 20:30 Discharge instructions given to patient, Instructed on discharge instructions, follow up and referral plans. Demonstrated understanding of instructions, follow-up care, 20:33 Patient left the ED. rv Signatures: Dispatcher [employer] EDScott Carlisle RN RN rv Yanira De Jesus RN RN ll1 Daysi Mendez PA-C PA-C sb4 Damián Khoury RN RN as9
--- NOTE | 2023-08-08 20:20 | EDPHYS ---
Physician Documentation [facility] Name: Marjan Kolb Age: 68 yrs Sex: Female : 1955 Arrival Date: 08/08/2023 Time: 17:50 Bed 3 Private MD: ED Physician Yayo August HPI: 08/07 18:04 This 68 yrs old Female presents to ER via EMS with complaints of Chest Pain, Shortness sb4 Of Breath. 18:04 Patient presents with complaints of chest pain and shortness of breath that began last sb4 night. She does endorse some nausea. States she is taking her medications as prescribed. No recent changes in any diagnoses or meds. In no acute distress upon arrival but is very hypertensive- 233/121, does report headache but no blurry vision or neurologic deficits. Historical: - Allergies: 17:54 Azithromycin; ll1 17:54 Bactrim; ll1 17:54 butorphanol; ll1 17:54 Fentanyl; ll1 17:54 Reglan; ll1 17:54 Sulfa (Sulfonamide Antibiotics); ll1 17:54 TRIMETHOPRIM; ll1 - PMHx: 17:54 angina pectoris; Anxiety; Atrial fibrillation; Bipolar disorder; COPD ll1 (Cholecystectomy); esophageal varicies; Hepatitis; HIV positive; Hypertensive disorder; Migraine; panic attack; - PSHx: 17:54 Appendectomy; Cholecystectomy; ll1 - Immunization history:: Adult Immunizations up to date. - Social history:: Smoking status: Patient reports the use of cigarette tobacco products, smokes one-half pack cigarettes per day. ROS: 18:04 Constitutional: Negative for fever, chills, and weight loss, sb4 18:04 Cardiovascular: Positive for chest pain, 18:04 Respiratory: Positive for shortness of breath, 18:04 Neuro: Positive for headache, 18:04 All other systems are negative, Exam: 18:04 Constitutional: This is a well developed, well nourished patient who is awake, alert, sb4 and in no acute distress. Head/Face: Normocephalic, atraumatic. Eyes: Extra-ocular motions intact. Periorbital areas with no swelling, redness, or edema. ENT: Mucous membranes moist. Cardiovascular: Regular rate and rhythm with a normal S1 and S2. Respiratory: Lungs have equal breath sounds bilaterally, clear to auscultation and percussion. No rales, rhonchi or wheezes noted. No increased work of breathing, no retractions or nasal flaring. Abdomen/GI: Soft, non-tender, no distension. Skin: Warm, dry with normal turgor. Normal color with no rashes, no lesions, and no evidence of cellulitis. MS/ Extremity: Pulses equal, no cyanosis. Neurovascular intact. Full, normal range of motion. Neuro: Awake and alert, GCS 15, oriented to person, place, time, and situation. Motor strength 5/5 in all extremities. Sensory grossly intact. Vital Signs: 17:52 BP 233 / 121; Pulse 58; Resp 18; Temp 98; Pulse Ox 99% on 2 lpm NC; Weight 79.38 kg; ll1 Height 5 ft. 4 in. ; Pain 10/10; 18:24 BP 219 / 111; Pulse 62; Pulse Ox 99% ; ll1 19:03 BP 195 / 97; Pulse 59; Resp 18; Pulse Ox 99% on 2 lpm NC; ll1 20:15 BP 159 / 102; Pulse 59; Resp 16; Pulse Ox 96% ; rv 17:52 Body Mass Index 30.04 (79.38 kg, 162.56 cm) ll1 17:52 Pain Scale: Adult ll1 MDM: 17:52 Patient medically screened. sb4 19:53 Data reviewed: vital signs, nurses notes, lab test result(s), EKG, radiologic studies, sb4 and as a result, I will discharge patient. Consideration of Admission/Observation Escalation of care including admission/observation considered. Care significantly affected by the following chronic conditions: Hypertension, Congestive Heart Failure, Chronic Obstructive Pulmonary Disease. Scoring Tools HEART Score: History: ECG: Age: Risk Factors: > or = 3 Risk factors for atherosclerotic disease (2), Troponin: Total Score = 5. Counseling: I had a detailed discussion with the patient and/or guardian regarding the historical points, exam findings, and any diagnostic results supporting the discharge/admit diagnosis, lab results, radiology results, the need for outpatient follow up, a adjustment clerk, to return to the emergency department if symptoms worsen or persist or if there are any questions or concerns that arise at home, smoking cessation. 20:07 ED course: patient refused nitroglycerin, will only take morphine for her pain. sb4 08/07 17:54 Order name: Basic Metabolic Panel; Complete Time: 18:39 sb4 08/07 17:54 Order name: CBC with Diff; Complete Time: 18:21 sb4 08/07 17:54 Order name: LFT's; Complete Time: 18:39 sb4 08/07 17:54 Order name: Magnesium; Complete Time: 18:39 sb4 08/07 17:54 Order name: NT PRO-BNP; Complete Time: 18:39 sb4 08/07 17:54 Order name: PT-INR; Complete Time: 18:21 sb4 08/07 17:54 Order name: Troponin HS; Complete Time: 18:39 sb4 08/07 18:42 Order name: Troponin High Sensitivity: at 2000; Complete Time: 20:25 sb4 08/07 17:54 Order name: XRAY Chest (1 view); Complete Time: 18:54 sb4 08/07 17:54 Order name: Cardiac monitoring; Complete Time: 18:23 sb4 08/07 17:54 Order name: EKG - Nurse/Tech; Complete Time: 18:23 sb4 08/07 17:54 Order name: IV Saline Lock; Complete Time: 18:03 sb4 08/07 17:54 Order name: Labs collected and sent; Complete Time: 18:03 sb4 08/07 17:54 Order name: O2 Per Protocol; Complete Time: 17:57 sb4 08/07 17:54 Order name: O2 Sat Monitoring; Complete Time: 17:57 sb4 EC:22 Rate is 60 beats/min. Rhythm is regular, Normal Sinus Rhythm. WI interval is normal at sb4 196 msec. QRS interval is normal at 94 msec. QT interval is prolonged at 504 msec. Clinical impression: LVH. Interpreted by me. Reviewed by me. Administered Medications: 18:22 Drug: morphine IVP or IV 4 mg IVP once over 4 mins Route: IVP; Infused Over: 4 mins; ll1 Site: Other; 20:32 Follow up: Response: No adverse reaction; Marked relief of symptoms rv 18:22 Drug: Ondansetron IVP 4 mg IVP once; over 2 minutes Route: IVP; Site: Other; ll1 20:32 Follow up: Response: No adverse reaction; Marked relief of symptoms rv 18:22 Not Given (Patient Refused): nitroglycerin0.4 mg Sublingual once; every five minute if ll1 needed x3 18:22 Drug: hydrALAZINE IVP 10 mg IVP once Route: IVP; Site: Other; ll1 20:32 Follow up: Response: No adverse reaction; Marked relief of symptoms rv 18:23 Drug: Aspirin PO Chewable Tablet 324 mg PO once; 81 mg tablets x 4 Route: PO; ll1 20:33 Follow up: Response: No adverse reaction; Marked relief of symptoms rv Disposition Summary: 08/08/23 20:19 Discharge Ordered Notes: Location: Home sb4 Problem: new sb4 Symptoms: have improved sb4 Condition: Stable sb4 Diagnosis - Essential (primary) hypertension sb4 Followup: sb4 - With: Mike Lund MD - When: 2 - 3 days - Reason: Further diagnostic work-up, Recheck today's complaints, Re-evaluation by your physician Discharge Instructions: - Discharge Summary Sheet sb4 - Nonspecific Chest Pain, Adult, [id number] sb4 - Hypertension, Adult, [id number] sb4 Forms: - Thank You Letter sb4 - Patient Portal Instructions sb4 - Leadership Thank You Letter sb4 Addendum: 08/10/2023 14:27 I was immediately available for consultation during this patient's visit. I did not e c2 personally see the patient or discuss the patient with the FUENTES. . Signatures: Dispatcher [employer] Yanira Pacheco, ASHLEY RN ll1 Daysi Mendez PA-C PA-C sb4 Yayo August MD MD ec2 Scott Yates RN rv
[2023-08-08 21:00] VITALS: BP 159/102; TEMP 98; O2SAT 96
== END ==
LOC: ER 17:50
DX: I10 Essential (primary) hypertension (principal); F17.210 Nicotine dependence, cigarettes, uncomplicated; Z21 Asymptomatic human immunodeficiency virus [HIV] infection status; Z88.1 Allergy status to other antibiotic agents; Z88.2 Allergy status to sulfonamides; Z88.5 Allergy status to narcotic agent; Z88.8 Allergy status to other drugs, medicaments and biological substances
CPT/HCPCS: 85025; 80048; 36415; 83735; 85610; 80076; 84484 ×2; 83880; 71045; 96375; 96374; 99285; J0360; J2405

== ENCOUNTER 2023-08-10 04:30 | Inpatient (IN) | payer OTHER ==
[2023-08-10] MEDS ORDERED: ASPIRIN 81 MG CHEWABLE TABLET ONE (04:56)
[2023-08-10] MEDS ORDERED: HYDRALAZINE HCL 20 MG/ML VIAL ONE (05:45)
[2023-08-10] MEDS ORDERED: DIAZEPAM 10 MG/2 ML INJ SYRINGE ONE (05:45)
[2023-08-10 06:07] LABS: Absolute Eosinophils 0.1 K/uL (0-0.5); Absolute Lymphocytes (CBC) 0.9 K/uL (0.7-4.9); Absolute Monocytes 0.7 K/uL (0.1-1.3); Absolute Neutrophil 6.4 K/uL (1.8-8.0); Basophils % 0.4 % (0-1.3); Eosinophils % 1.2 % (0-4.4); Hematocrit 36.6 % (36.0-45.0); Hemoglobin 12.1 g/dL (12.0-15.0); Lymphocytes % 10.8 % (15.3-44.8); MCH 27.2 pg (27.0-35.0); MCHC 33.2 g/dL (32.0-36.0); MPV 6.5 fL (7.6-11.3); Monocytes % 8.1 % (3.3-12.3); Neutrophils % 79.5 % (41.7-73.7); Nucleated Red Blood Cells % 0.2 % (0-0); Platelets 176 thou/uL (152-406); RBC Red Blood Cell Count 4.46 M/uL (3.86-4.86); Red Cell Distribution Width 16.3 % (12.1-15.2)
[2023-08-10] MEDS ORDERED: IPRATROPIUM BROM 0.5MG/2.5ML ONE (06:12)
[2023-08-10] MEDS ORDERED: METHYLPREDNISOLONE 125 MG INJ ONE (06:12)
[2023-08-10] MEDS ORDERED: ONDANSETRON 4 MG/2 ML VIAL ONE (06:12)
[2023-08-10] MEDS ORDERED: ALBUTEROL 2.5 MG/3 ML NEB SOL ONE (06:12)
[2023-08-10] MEDS ORDERED: MORPHINE 2 MG/ML SYR ONE ×2 (06:12→08:07)
[2023-08-10] MEDS ORDERED: MORPHINE 4 MG/ML SYR ONE (06:13)
[2023-08-10 06:16] LABS: PT Prothrombin Time 11.8 SECONDS (9.5-12.5); Protime INR 1.07
[2023-08-10 06:27] LABS: Albumin 3.5 g/dL (3.4-5.0); Albumin/Globulin Ratio 0.9 (1.1-1.8); Anion Gap 9.5 mEq/L (5.0-15.0); Bilirubin Direct 0.2 mg/dL (0-0.2); Bilirubin Indirect, Calculated 0.4 mg/dL (0.2-0.8); Bilirubin Total 0.6 mg/dL (0.2-1.0); Globulin 4.1 g/dL (2.3-3.5); Magnesium 2.3 mg/dL (1.6-2.4); Potassium 3.5 mEq/L (3.5-5.1); Protein, Total 7.6 g/dL (6.4-8.2); Troponin High Sensitivity 14.8 pg/mL (<58.9)
--- NOTE | 2023-08-10 06:43 | EDPHYS ---
Physician Documentation [facility] Name: Marjan Kolb Age: 68 yrs Sex: Female : 1955 Arrival Date: 08/10/2023 Time: 04:30 Bed 13 Private MD: ED Physician Dion Randhawa HPI: 08/09 04:47 This 68 yrs old Female presents to ER via Unassigned with complaints of upper sp4 neck pain, Headache. 06:05 Presents with acute onset of chest pain and shortness of breath. Patient arrived with sp4 private vehicle. Patient has history of HIV, hypertension, atrial fibrillation, status post Watchman procedure, chronic diastolic heart failure, COPD. History of poorly controlled hypertension. Patient's medications include raltegravir, sertraline, Descovy, amlodipine, Dexilant, clopidogrel, trazodone, Wellbutrin, spironolactone, metoprolol, albuterol, buspirone, Dulera, Klonopin, HCTZ, cefdinir, olmesartan, spironolactone, methylprednisolone.. Historical: - Allergies: 05:03 Azithromycin; pf1 05:03 Bactrim; pf1 05:03 butorphanol; pf1 05:03 Fentanyl; pf1 05:03 Reglan; pf1 05:03 Sulfa (Sulfonamide Antibiotics); pf1 05:03 TRIMETHOPRIM; pf1 - PMHx: 05:03 angina pectoris; Anxiety; Bipolar disorder; Atrial fibrillation; COPD pf1 (Cholecystectomy); esophageal varicies; Hepatitis; HIV positive; Hypertensive disorder; Migraine; panic attack; - PSHx: 05:03 Appendectomy; Cholecystectomy; pf1 - Immunization history:: Adult Immunizations not up to date, 3 doses of pfizer Last tetanus immunization: > 10 years ago Flu vaccine is not up to date. - Social history:: Smoking status: Patient/guardian denies using tobacco, the patient reports quitting approximately 3 years ago, Patient/guardian denies using alcohol, street drugs. ROS: 05:07 Constitutional: Negative for fever, chills, and weight loss, Positive chest pain sp4 05:07 All other systems are negative, Exam: 05:06 Constitutional: This is a well developed, well nourished patient who is awake, alert, sp4 and in no acute distress. Head/Face: Normocephalic, atraumatic. Eyes: Pupils equal round and reactive to light, extra-ocular motions intact. Lids and lashes normal. Conjunctiva and sclera are not injected. Cornea within normal limits. Periorbital areas with no swelling, redness, or edema. ENT: Nares patent. No nasal discharge, no septal abnormalities noted. Tympanic membranes are normal and external auditory canals are clear. Oropharynx with no redness, swelling, or masses, exudates, or evidence of obstruction, uvula midline. Mucous membranes moist. Neck: Trachea midline, no thyromegaly or masses palpated, and no cervical lymphadenopathy. Supple, full range of motion without nuchal rigidity, or vertebral point tenderness. Chest/axilla: Normal chest wall appearance and motion. Nontender with no deformity. No lesions are appreciated. Cardiovascular: Regular rate and rhythm with a normal S1 and S2. No gallops, murmurs, or rubs. Normal PMI, no JVD. No pulse deficits. Respiratory: Lungs have equal breath sounds bilaterally, clear to auscultation and percussion. No rales, rhonchi or wheezes noted. No increased work of breathing, no retractions or nasal flaring. Abdomen/GI: Soft, with normal bowel sounds. No distension or tympany. No guarding or rebound. No evidence of tenderness throughout. Back: No spinal tenderness. No costovertebral tenderness. Skin: Warm, dry with normal turgor. Normal color with no rashes, no lesions, and no evidence of cellulitis. MS/ Extremity: Pulses equal, no cyanosis. Neurovascular intact. Full, normal range of motion. Neuro: Awake and alert, GCS 15, oriented to person, place, time, and situation. Cranial nerves II-XII grossly intact. Motor strength 5/5 in all extremities. Sensory grossly intact. Psych: Awake, alert, with orientation to person, place and time. Behavior, mood, and affect are within normal limits 05:06 ECG was reviewed by the Attending Physician. A fib at 74 bpm Vital Signs: 04:42 BP 236 / 122; Pulse 74; Resp 18; Temp 97.7; Pulse Ox 97% on R/A; Weight 79.38 kg; pf1 Height 5 ft. 4 in. ; Pain 10/10; 06:51 BP 153 / 74; Pulse 68; Resp 13; Pulse Ox 94% on R/A; Pain 8/10; tm6 04:42 Body Mass Index 30.04 (79.38 kg, 162.56 cm) pf1 04:42 Pain Scale: Adult pf1 06:51 Pain Scale: Adult tm6 Crystal Coma Score: 06:13 Eye Response: spontaneous(4). Motor Response: obeys commands(6). Verbal Response: sp4 oriented(5). Total: 15. MDM: 04:53 Patient medically screened. sp4 06:13 Differential diagnosis: migraine, otitis, sinusitis, vasomotor headache. Data reviewed: sp4 vital signs, nurses notes, old medical records, lab test result(s), EKG, radiologic studies, plain films. ED course: PROCEDURE: XR Chest, 1 View CLINICAL INDICATION: The patient is 68 years old and is Female; CHEST PAIN Bed Name: 13 TECHNIQUE: Frontal view of the chest. COMPARISON: 12/19/2022 chest radiograph FINDINGS: LUNGS: Relatively low lung volumes bilaterally. Allowing for this and patient positioning, no focal consolidation. PLEURAL SPACE: No appreciable pleural effusion or pneumothorax. MEDIASTINUM: Redemonstrated prominence of the cardiomediastinal silhouette, likely exaggerated secondary to portable technique, lordotic positioning, and patient body habitus. Prominence of the pulmonary arteries, suggesting pulmonary hypertension. BONES/JOINTS: Redemonstrated reversed bilateral shoulder arthroplasties. IMPRESSION: 1. Low lung volumes bilaterally. Allowing for this and patient positioning, no acute chest findings. 2. Pulmonary artery prominent, suggesting pulmonary hypertension. . 08/09 04:53 Order name: Basic Metabolic Panel; Complete Time: 06:39 sp4 08/09 04:53 Order name: CBC with Diff; Complete Time: 06:20 sp4 08/09 04:53 Order name: LFT's; Complete Time: 06:39 sp4 08/09 04:53 Order name: Magnesium; Complete Time: 06:39 sp4 08/09 04:53 Order name: NT PRO-BNP; Complete Time: 06:39 sp4 08/09 04:53 Order name: PT-INR; Complete Time: 06:20 sp4 08/09 04:53 Order name: Troponin HS; Complete Time: 06:39 sp4 08/09 04:53 Order name: XRAY Chest (1 view) 4 08/09 04:53 Order name: EKG; Complete Time: 04:54 sp4 08/09 07:25 Order name: CONS Physician Consult EDCT 08/09 04:53 Order name: Cardiac monitoring; Complete Time: 05:00 sp4 08/09 04:53 Order name: EKG - Nurse/Tech; Complete Time: 05:00 sp4 08/09 04:53 Order name: IV Saline Lock; Complete Time: 06:09 sp4 08/09 04:53 Order name: Labs collected and sent; Complete Time: 06:08 sp4 08/09 04:53 Order name: O2 Per Protocol; Complete Time: 05:00 sp4 08/09 04:53 Order name: O2 Sat Monitoring; Complete Time: 05:00 sp4 EC:06 Rate is 74 beats/min. Rhythm is irregularly irregular, A fib. QRS [place] is Normal. QT sp4 interval is normal. No Q waves. T waves are Normal. No ST changes noted. Clinical impression: No evidence of ischemia. Interpreted by me. Reviewed by me. Administered Medications: 05:00 Drug: Aspirin PO Chewable Tablet 324 mg PO once; 81 mg tablets x 4 Route: PO; tm6 06:22 Drug: morphine IVP or IV 6 mg IVP once over 4 mins Route: IVP; Infused Over: 4 mins; tm6 Site: Other; 06:22 Drug: Ondansetron IVP 4 mg IVP once; over 2 minutes Route: IVP; Site: Other; tm6 06:22 Drug: MethylPrednisoLONE IVP 125 mg IVP once Route: IVP; Site: Other; tm6 06:35 Drug: Albuterol Inhalation 2.5 mg Inhalation once Route: Inhalation; tm6 06:35 Drug: Ipratropium Inhalation Aerosol 0.5 mg Inhalation once Route: Inhalation; tm6 08:14 Not Given (Other Intervention Used): clonidine0.2 mg PO once ld1 08:15 Drug: Diazepam IVP 5 mg IVP once {Note: administered by previous nurse .} Route: IVP; ld1 Site: Other; 08:15 Drug: hydrALAZINE IVP 20 mg IVP once {Note: Given by previous Nurse .} Route: IVP; ld1 Site: Other; Disposition Summary: 08/10/23 06:42 Hospitalization Ordered Notes: Hospitalization Status: Observation sp4 Provider: Brandon Shin sp4 Location: Telemetry/MedSurg (observation) sp4 Condition: Stable sp4 Problem: new sp4 Symptoms: have improved sp4 Bed/Room Type: Standard sp4 Room Assignment: 424(08/10/23 08:32) bd Diagnosis - Angina pectoris, unspecified sp4 - Hypertensive urgency, Unstable angina sp4 Forms: - Medication Reconciliation Form sp4 - SBAR form sp4 - Leadership Thank You Letter sp4 Signatures: Dispatcher [employer] EDHeydi Travis Lauren RN RN ld1 Kay Castrejon RN RN pf1 Dion Randhawa MD MD sp4 Romi Mcneil RN RN tm6 Corrections: (The following items were deleted from the chart) 08:32 06:42 sp4 bd
--- NOTE | 2023-08-10 06:43 | ER ---
Nurse's Notes [facility] Name: Marjan Kolb Age: 68 yrs Sex: Female : 1955 Arrival Date: 08/10/2023 Time: 04:30 Bed 13 Private MD: Diagnosis: Angina pectoris, unspecified;Hypertensive urgency, Unstable angina Presentation: 08/09 04:42 Chief complaint: Patient states: constant sharp bilateral chest pain of 10 with SOB and pf1 headache,onset 0300. Patient stated took ASA 162 mg DOUGH SCALER AND MIXER. 04:42 Coronavirus screen: Client denies travel out of the [place] in the last 14 days. At this pf1 time, the client does not indicate any symptoms associated with coronavirus-19. Ebola Screen: Patient negative for fever greater than or equal to 101.5 degrees Fahrenheit, and additional compatible Ebola Virus Disease symptoms. Initial Sepsis Screen: Does the patient meet any 2 criteria? No. Patient's initial sepsis screen is negative. Does the patient have a suspected source of infection? No. Patient's initial sepsis screen is negative. Risk Assessment: Do you want to hurt yourself or someone else? Patient reports no desire to harm self or others. Onset of symptoms was August 10, 2023 at 03:00. 04:42 Method Of Arrival: Wheelchair pf1 04:42 Acuity: BLAYNE 2 pf1 Triage Assessment: 04:45 Headache History: The patient has had previous headaches and this one is similar to pf1 previous episodes. 04:45 General: Appears in no apparent distress. uncomfortable, well developed, Behavior is pf1 cooperative, appropriate for age, anxious. Pain: Complains of pain in chest Pain currently is 10 out of 10 on a pain scale. Quality of pain is described as sharp, Pain began 2 hours ago. Neuro: Reports headache. Cardiovascular: Reports chest pain, shortness of breath, Capillary refill < 3 seconds Patient's skin is warm and dry. 08:15 Pain: Also complains of. ld1 Historical: - Allergies: 05:03 Azithromycin; pf1 05:03 Bactrim; pf1 05:03 butorphanol; pf1 05:03 Fentanyl; pf1 05:03 Reglan; pf1 05:03 Sulfa (Sulfonamide Antibiotics); pf1 05:03 TRIMETHOPRIM; pf1 - PMHx: 05:03 angina pectoris; Anxiety; Bipolar disorder; Atrial fibrillation; COPD pf1 (Cholecystectomy); esophageal varicies; Hepatitis; HIV positive; Hypertensive disorder; Migraine; panic attack; - PSHx: 05:03 Appendectomy; Cholecystectomy; pf1 - Immunization history:: Adult Immunizations not up to date, 3 doses of pfizer Last tetanus immunization: > 10 years ago Flu vaccine is not up to date. - Social history:: Smoking status: Patient/guardian denies using tobacco, the patient reports quitting approximately 3 years ago, Patient/guardian denies using alcohol, street drugs. Screenin:51 [facility] ED Fall Risk Assessment (Adult) History of falling in the last 3 months, tm6 including since admission No falls in past 3 months (0 pts) Confusion or Disorientation No (0 pts) Intoxicated or Sedated No (0 pts) Impaired Gait No (0 pts) Mobility Assist Device Used No (0 pt) Altered Elimination No (0 pt) Score/Fall Risk Level 0 - 2 = Low Risk Oriented to surroundings, Maintained a safe environment. Abuse screen: Denies threats or abuse. Denies injuries from another. Nutritional screening: No deficits noted. Tuberculosis screening: No symptoms or risk factors identified. Assessment: 06:51 General: Appears distressed, Behavior is cooperative, anxious. Pain: Complains of pain tm6 in chest Pain currently is 10 out of 10 on a pain scale. Quality of pain is described as aching, sharp. Neuro: Level of Consciousness is awake, alert, obeys commands, Oriented to person, place, time, situation. Cardiovascular: Capillary refill < 3 seconds Patient's skin is warm and dry. Rhythm is sinus rhythm. Respiratory: Airway is patent Respiratory effort is labored, Respiratory pattern is symmetrical. GI: Abdomen is flat, non-distended. : No signs and/or symptoms were reported regarding the genitourinary system. EENT: No signs and/or symptoms were reported regarding the EENT system. Derm: No signs and/or symptoms reported regarding the dermatologic system. Musculoskeletal: No signs and/or symptoms reported regarding the musculoskeletal system. Vital Signs: 04:42 BP 236 / 122; Pulse 74; Resp 18; Temp 97.7; Pulse Ox 97% on R/A; Weight 79.38 kg; pf1 Height 5 ft. 4 in. ; Pain 10/10; 06:51 BP 153 / 74; Pulse 68; Resp 13; Pulse Ox 94% on R/A; Pain 8/10; tm6 04:42 Body Mass Index 30.04 (79.38 kg, 162.56 cm) pf1 04:42 Pain Scale: Adult pf1 06:51 Pain Scale: Adult tm6 Crystal Coma Score: 06:13 Eye Response: spontaneous(4). Motor Response: obeys commands(6). Verbal Response: sp4 oriented(5). Total: 15. ED Course: 04:36 Patient arrived in ED. gm2 04:40 EKG completed in triage. Results shown to MD. pf1 04:42 Romi Mcneil, RN is Primary Nurse. tm6 04:47 Dion Randhawa MD is Attending Physician. sp4 05:00 EKG done, by ED staff, reviewed by Dion Randhawa MD. tm6 05:03 Triage completed. pf1 05:10 No provider procedures requiring assistance completed. pf1 05:15 Missed attempt(s): 22 gauge Bleeding controlled, band aid applied, catheter tip intact. oe 05:30 Missed attempt(s): 22 gauge in right upper arm. pf1 05:42 XRAY Chest (1 view) In Process Unspecified. EDMS 05:58 Inserted saline lock: 22 gauge in right ,using aseptic technique. ankle. pf1 05:58 Initial lab(s) drawn, by me, sent to lab. pf1 06:08 Basic Metabolic Panel Sent. tm6 06:08 CBC with Diff Sent. tm6 06:08 LFT's Sent. tm6 06:08 Magnesium Sent. tm6 06:08 NT PRO-BNP Sent. tm6 06:08 PT-INR Sent. tm6 06:08 Troponin HS Sent. tm6 06:42 Brandon Shin is Hospitalizing Provider. sp4 06:51 Patient has correct armband on for positive identification. Placed in gown. Bed in low tm6 position. Call light in reach. Side rails up X2. Provided Education on: plan of care. Client placed on continuous cardiac and pulse oximetry monitoring. NIBP monitoring applied. cafeteria monitor on. Pulse ox on. NIBP on. Noise minimized. Lights dimmed. Warm blanket given. Pillow given. 06:59 Assisted with bedpan. tm6 08:15 Patient admitted, IV remains in place. ld1 08:16 Patient medication usage. ld1 Administered Medications: 05:00 Drug: Aspirin PO Chewable Tablet 324 mg PO once; 81 mg tablets x 4 Route: PO; tm6 06:22 Drug: morphine IVP or IV 6 mg IVP once over 4 mins Route: IVP; Infused Over: 4 mins; tm6 Site: Other; 06:22 Drug: Ondansetron IVP 4 mg IVP once; over 2 minutes Route: IVP; Site: Other; tm6 06:22 Drug: MethylPrednisoLONE IVP 125 mg IVP once Route: IVP; Site: Other; tm6 06:35 Drug: Albuterol Inhalation 2.5 mg Inhalation once Route: Inhalation; tm6 06:35 Drug: Ipratropium Inhalation Aerosol 0.5 mg Inhalation once Route: Inhalation; tm6 08:14 Not Given (Other Intervention Used): clonidine0.2 mg PO once ld1 08:15 Drug: Diazepam IVP 5 mg IVP once {Note: administered by previous nurse .} Route: IVP; ld1 Site: Other; 08:15 Drug: hydrALAZINE IVP 20 mg IVP once {Note: Given by previous Nurse .} Route: IVP; ld1 Site: Other; Medication: 06:51 VIS not applicable for this client. tm6 Outcome: 06:42 Decision to Hospitalize by Provider. sp4 08:15 Admitted to ER Hold. Please see [facility] for further documentation. ld1 08:15 Condition: stable 08:15 Instructed on the need for admit, 09:33 Patient left the ED. bd Signatures: Dispatcher [employer] EDMS Heydi Caldera Orlando oe Sims, Lauren, RN RN ld1 Kay Castrejon RN RN pf1 Dion Randhawa MD MD sp4 Karyn Philippe Tawney, RN RN tm6 Corrections: (The following items were deleted from the chart) 05:08 04:42 Chief complaint: Patient states: constant sharp bilateral chest pain of 10 with pf1 SOB,onset 0300. Patient stated took ASA 162 mg DOUGH SCALER AND MIXER. pf1
--- NOTE | 2023-08-10 07:22 | P.HP ---
Certification for Inpatient Patient History Date of Service: 08/10/23 Reason for admission: Chest pain History of Present Illness: 67-year-old female with history of HIV, hypertension, atrial fibrillation status post Watchman procedure, chronic diastolic just heart failure, presented to the emergency room with hypertension and chest pain. She reports history of COPD, reports associated shortness of breath, she reports symptoms started prior to arrival, chest pain 10 out of 10. Hypertensive urgency, EKG 74 beats/min. Rhythm is irregularly irregular, A fib. QRS [place] is Normal. QT interval is normal. No Q waves. T waves are Normal. No ST changes noted. BP 236 / 122; Pulse 74; Resp 18; Temp 97.7; Pulse Ox 97% on R/A; Weight 79.38 kg; Height 5 ft. 4 in. ; Pain 10/10; plan to admit for chest pain rule out ND, hypertensive urgency. Acute kidney injury BUN 27 creatinine 1.07, CBC unremarkable elevated left shift 79.5 laboratory evaluation elevated BNP 3301, opponent normal at 14.8 chest x-ray prominent pulmonary artery suggesting pulmonary hypertension, low lung volumes - Past Medical/Surgical History Diabetic: No -: HIV- viral load currently undectable -: CAD -: Bipolar disorder -: Hypertension -: COPD on home O2 @ 2L -: Tobacco abuse -: former Alcohol abuse -: Anemia of chronic disease -: Hyperlipidemia -: GERD with hiatal hernia -: Atrial fibrillation-paroxysmal S/P Watchman procedure -: Chronic diastolic CHF -: Appendectomy Watchman procedure, -: Cholecystectomy -: left and right shoulder rotator cuff repair -: Right foot repair -: Right shoulder replacement -: right wrist -: hiatal hernia repair february 2021 -: right wrist Psychosocial/ Personal History: She lives at home. She is newly . - Family History Father -: Heart disease, Hypertension, Lung disease, GI disease, Stroke, Cancer, Liver disease, Kidney disease Notes: Colon cancer Mother -: Hypertension, Lung disease, GI disease, Blood disorders, Other (see notes) Notes: Epilepsy, chronic pain, leukemia - Social History Alcohol use: No CD- Drugs: No Caffeine use: No <Diane Recio - Last Filed: 08/10/23 11:17> Date of Service: 08/10/23 <Sandra Mendenhall - Last Filed: 08/10/23 13:05> Allergies fentanyl Allergy (Severe, Verified 07/20/22 08:30) Hives adhesive tape Allergy (Verified 07/20/22 08:30) Rash butorphanol tartrate [From Stadol] Allergy (Verified 07/20/22 08:30) confusion metoclopramide HCl [From Reglan] Allergy (Verified 07/20/22 08:30) Shortness of breath sulfamethoxazole [From Bactrim] Allergy (Verified 07/20/22 08:30) Hives/Rash trimethoprim [From Bactrim] Allergy (Verified 07/20/22 08:30) Hives/Rash Bactrim DS Allergy (Intermediate, Uncoded 07/20/22 08:30) Nausea/Vomiting Home Medications: Raltegravir Potassium [Isentress] 1 tab PO BID 02/28/12 Sertraline [Zoloft*] 100 mg PO BID 09/15/12 Emtricitabine/Tenofov Alafenam [Descovy 200-25 mg Tablet] 1 tab PO DAILY 03/05/21 Amlodipine Besylate 1 tab PO DAILY 03/30/21 Dexlansoprazole [Dexilant] 60 mg PO DAILY 03/30/21 Clopidogrel Bisulfate [Plavix*] 1 tab PO DAILY 10/16/21 Trazodone [Desyrel*] 1 tab PO BEDTIME 10/16/21 buPROPion HCL [Wellbutrin Xl] 1 tab PO DAILY 10/16/21 Spironolactone [Aldactone*] 25 mg PO DAILY #30 tab 02/04/22 Metoprolol Tartrate 1 tab PO BID 07/20/22 Albuterol 1 inhaler IH BID 11/28/22 Buspirone HCl [Buspar] 30 mg PO BID 11/28/22 Mometasone/Formoterol [Dulera 200 Mcg-5 Mcg Inhaler] 2 puff IH BID 11/28/22 clonazePAM [Klonopin*] 1 mg PO PRN PRN 11/28/22 hydroCHLOROthiazide [Hydrochlorothiazide] 25 mg PO TID 11/28/22 Cefdinir [Cefdinir*] 300 mg PO BID #14 cap 11/30/22 Olmesartan Medoxomil [Benicar] 40 mg PO DAILY #30 tab 11/30/22 Spironolactone [Aldactone*] 25 mg PO BID #60 tab 11/30/22 methylPREDNISolone [Medrol] 2 mg PO BID #11 tab 11/30/22 Review of Systems PER HPI <Diane Recio - Last Filed: 08/10/23 11:17> Physical Examination - Physical Exam General: Alert, In no apparent distress, Oriented x3 HEENT: Atraumatic, Normocephalic Neck: Supple, 2+ carotid pulse no bruit Respiratory: Normal air movement, Diminished Cardiovascular: No edema, Normal pulses Capillary refill: <2 Seconds Gastrointestinal: Normal bowel sounds, Soft and benign Musculoskeletal: No clubbing, No swelling Integumentary: No breakdown, No significant lesion Neurological: Normal speech, Normal strength at 5/5 x4 extr - Studies Laboratory Data (last 24 hrs) 08/10/23 08/10/23 08/10/23 05:58 05:58 05:58 WBC 8.00 Hgb 12.1 Hct 36.6 Plt Count 176 PT 11.8 INR 1.07 Sodium 137 Potassium 3.5 BUN 27 H Creatinine 1.07 H Glucose 107 H Magnesium 2.3 Total Bilirubin 0.6 AST 23 ALT 18 Alkaline Phosphatase 87 <Diane Recio - Last Filed: 08/10/23 11:17> - Studies Laboratory Data (last 24 hrs) 08/10/23 08/10/23 08/10/23 05:58 05:58 05:58 WBC 8.00 Hgb 12.1 Hct 36.6 Plt Count 176 PT 11.8 INR 1.07 Sodium 137 Potassium 3.5 BUN 27 H Creatinine 1.07 H Glucose 107 H Magnesium 2.3 Total Bilirubin 0.6 AST 23 ALT 18 Alkaline Phosphatase 87 <Sandra Mendenhall - Last Filed: 08/10/23 13:05> Assessment and Plan - Plan Plan: Hypertensive urgency with underlying primary hypertension/medical noncompliance continue home medications including metoprolol, IV Lasix given dyspnea, orthopnea, elevated BNP. Patient reports she reports she takes Lasix at home Acute on chronic diastolic congestive heart failure Elevated BNP Continue IV diuresis, last echocardiogram performed in June shows normal EF. Continue other home medications. Paroxysmal atrial fibrillation status post Watchman procedure Patient reports that she takes Plavix at home had Watchman procedure approximately 1 to 2 years ago. Continue Plavix, monitoring telemetry. HIV Continue home medications, patient reports she is compliant with her antiretrovirals COPD Resume home meds As needed nebulized treatments, no wheezing noted at this time. DVT PPX: Lovenox Code status: Full Discharge Plan: Home Plan to discharge in: 24 Hours Discharge Plan: Home - Advance Directives Does patient have a Living Will: No Does patient have a Durable POA for Healthcare: No - Code Status/Comfort Care Code Status Assessed: No Code Status: Full Code Critical Care: No Time Spent Managing Pts Care (In Minutes): 55 <Diane Recio - Last Filed: 08/10/23 11:17> - Plan Pt seen and examined. I agree with the note by the SENIOR MARKETING COORDINATOR. Pt is a 67-year-old female with past medical history of HIV, hypertension, atrial fibrillation status post Watchman procedure, and chronic diastolic just heart failure who presents with elevated BP and chest pain. The chest pain is located above the midsternum, radiates of her head, intermittent and sharp in nature with severity of 10/10. Nothing makes it better or worse. On admission, lab studies show troponin 14.8, wbc 8, hgb 12.1, K 3.5, Cr 1.07 and BNP 3301. EKG shows heart rate of 74 beats/min. Rhythm is irregularly irregular, A fib. QRS [place] is Normal. On admission vital signs were: BP 236 / 122; Pulse 74; Resp 18; Temp 97.7; Pulse Ox 97% on R/A. At bedside, pt complains of pain in her head. A/P: Chest pain: Will r/o ACS. Likely due to elevated BP. Will control BP. Htn urgency: Will continue amlodipine, spironolactone, valsartan and metoprolol Hx of diastolic heart failure: BNP is 3301. Will continue lasix, strict I/O and daily weight. Last Echo showed normal EF. Paroxysmal A. fib: s/p watchman device placement. Will continue telemetry and metoprolol. Hx of HIV: continue home med Code: full <Sandra Mendenhall - Last Filed: 08/10/23 13:05>
[2023-08-10] MEDS ORDERED: IPRATROPIUM BROM 0.5MG/2.5ML NEB PRN (07:29)
[2023-08-10] MEDS ORDERED: ALBUTEROL 2.5 MG/3 ML NEB SOL NEB PRN (07:30)
[2023-08-10] MEDS ORDERED: METOPROLOL TAR 50 MG TAB ONE (08:06)
[2023-08-10] MEDS ORDERED: PANTOPRAZOLE 40MG TABLET PO ONE (08:06)
[2023-08-10] MEDS ORDERED: CLOPIDOGREL 75 MG TABLET ONE (08:07)
[2023-08-10] MEDS ORDERED: AMLODIPINE 10 MG TAB ONE (08:07)
[2023-08-10] MEDS: BUSPIRONE HCL 15 MG TABLET PO SCH (08:17)
[2023-08-10] MEDS: VALSARTAN 160 MG TAB PO SCH (08:17)
[2023-08-10] MEDS: DULERA 200/5 (MOMETASONE/FORMOTEROL) INHALER IH SCH (08:17)
[2023-08-10] MEDS: SPIRONOLACTONE 25 MG TABLET PO SCH (08:17)
[2023-08-10] MEDS: PANTOPRAZOLE 40MG TABLET PO SCH (08:17)
[2023-08-10] MEDS: METOPROLOL TAR 50 MG TAB PO SCH (08:18)
[2023-08-10] MEDS: ALBUTEROL INHALER 200 PUFF/6.7 GM IH SCH (08:19)
[2023-08-10] MEDS: BUPROPION HCL XL 150 MG TAB PO SCH (08:19)
[2023-08-10] MEDS: METHYLPREDNISOLONE 2 MG PO SCH (08:19)
[2023-08-10] MEDS: CLOPIDOGREL 75 MG TABLET PO SCH (08:19)
[2023-08-10] MEDS: MORPHINE 2 MG/ML SYR IV PRN (08:19)
[2023-08-10] MEDS: AMLODIPINE 10 MG TAB PO SCH (08:19)
[2023-08-10] MEDS ORDERED: HOME MED 1 EA UNK (Dexlansoprazole [Dexilant] 30 MG Cap.Dr.Bp) PO SCH (09:00)
[2023-08-10] MEDS ORDERED: HOME MED 1 EA UNK (Olmesartan Medoxomil [Benicar] 40 MG Tablet) PO SCH (09:00)
[2023-08-10] MEDS ORDERED: HYDROCODONE/APAP 10/325 TAB PO PRN (11:55)
[2023-08-10] MEDS ORDERED: ACETAMINOPHEN 500 MG TAB PO PRN (11:55)
[2023-08-10] MEDS: FUROSEMIDE 40 MG/4 ML VIAL IV ONE (12:12)
[2023-08-10] MEDS: METHYLPREDNISOLONE 125 MG INJ IV SCH (12:12)
[2023-08-10] MEDS: HYDROCODONE/APAP 5/325 MG TAB PO PRN (12:13)
--- NOTE | 2023-08-10 13:16 | RAD REPORT ---
EXAM DESCRIPTION: RAD - Chest Single View - 08/10/2023 5:40 am CLINICAL HISTORY: The patient is 68 years old and is Female; CHEST PAIN Bed Name: 13 TECHNIQUE: Frontal view of the chest. COMPARISON: 12/19/2022 chest radiograph FINDINGS: LUNGS: Relatively low lung volumes bilaterally. Allowing for this and patient positionin g, no focal consolidation. PLEURAL SPACE: No appreciable pleural effusion or pneumothorax. MEDIASTINUM: Redemonstrated prominence of the cardiomediastinal silhouette, likely exaggerated seco ndary to portable technique, lordotic positioning, and patient body habitus. Prominence of the pulmon nancy arteries, suggesting pulmonary hypertension. BONES/JOINTS: Redemonstrated reversed bilateral shoulder arthroplasties. IMPRESSION: 1. Low lung volumes bilaterally. Allowing for this and patient positioning, no acute c hest findings. 2. Pulmonary artery prominent, suggesting pulmonary hypertension. Electronically signed by: Torres Alvarez MD 08/10/2023 05:48 AM CDT Due to temporary technical issues with the PACS/Fluency reporting system, reports are being signed by the in house radiologist without review as a courtesy to ensure prompt reporting. The interpreting r adiologist is fully responsible for the content of the report.
[2023-08-10] MEDS: MORPHINE 4 MG/ML SYR IV PRN (13:27)
[2023-08-10] MEDS: ASPIRIN 325 MG TAB PO SCH (13:27)
--- NOTE | 2023-08-10 16:31 | P.CNS ---
Date of Consult: 08/10/23 Chief Complaint: Chest pain History of Present Illness: Patient with PMH of atrial fibrillation s/p watchman placement, HTN, Chronic diastolic dysfunction presented with high BP, headache, back ache, shoulder ache and chest ache, also report SOB, no edema, no palpitation, no syncope. Allergies fentanyl Allergy (Severe, Verified 07/20/22 08:30) Hives adhesive tape Allergy (Verified 07/20/22 08:30) Rash butorphanol tartrate [From Stadol] Allergy (Verified 07/20/22 08:30) confusion metoclopramide HCl [From Reglan] Allergy (Verified 07/20/22 08:30) Shortness of breath sulfamethoxazole [From Bactrim] Allergy (Verified 07/20/22 08:30) Hives/Rash trimethoprim [From Bactrim] Allergy (Verified 07/20/22 08:30) Hives/Rash Bactrim DS Allergy (Intermediate, Uncoded 07/20/22 08:30) Nausea/Vomiting Home Medications: Raltegravir Potassium [Isentress] 1 tab PO BID 02/28/12 Sertraline [Zoloft*] 100 mg PO BID 09/15/12 Emtricitabine/Tenofov Alafenam [Descovy 200-25 mg Tablet] 1 tab PO DAILY 03/05/21 Amlodipine Besylate 1 tab PO DAILY 03/30/21 Dexlansoprazole [Dexilant] 60 mg PO DAILY 03/30/21 Clopidogrel Bisulfate [Plavix*] 1 tab PO DAILY 10/16/21 Trazodone [Desyrel*] 1 tab PO BEDTIME 10/16/21 buPROPion HCL [Wellbutrin Xl] 1 tab PO DAILY 10/16/21 Spironolactone [Aldactone*] 25 mg PO DAILY #30 tab 02/04/22 Metoprolol Tartrate 1 tab PO BID 07/20/22 Albuterol 1 inhaler IH BID 11/28/22 Buspirone HCl [Buspar] 30 mg PO BID 11/28/22 Mometasone/Formoterol [Dulera 200 Mcg-5 Mcg Inhaler] 2 puff IH BID 11/28/22 clonazePAM [Klonopin*] 1 mg PO PRN PRN 11/28/22 hydroCHLOROthiazide [Hydrochlorothiazide] 25 mg PO TID 11/28/22 Cefdinir [Cefdinir*] 300 mg PO BID #14 cap 11/30/22 Olmesartan Medoxomil [Benicar] 40 mg PO DAILY #30 tab 11/30/22 Spironolactone [Aldactone*] 25 mg PO BID #60 tab 11/30/22 methylPREDNISolone [Medrol] 2 mg PO BID #11 tab 11/30/22 - Past Medical/Surgical History Diabetic: No -: HIV- viral load currently undectable -: CAD -: Bipolar disorder -: Hypertension -: COPD on home O2 @ 2L -: Tobacco abuse -: former Alcohol abuse -: Anemia of chronic disease -: Hyperlipidemia -: GERD with hiatal hernia -: Atrial fibrillation-paroxysmal S/P Watchman procedure -: Chronic diastolic CHF -: Appendectomy Watchman procedure, -: Cholecystectomy -: left and right shoulder rotator cuff repair -: Right foot repair -: Right shoulder replacement -: right wrist -: hiatal hernia repair february 2021 -: right wrist Psychosocial/ Personal History: She lives at home. She is newly . - Family History Father Medical History: Heart disease, Hypertension, Lung disease, GI disease, Stroke, Cancer, Liver disease, Kidney disease Notes: Colon cancer Mother Medical History: Hypertension, Lung disease, GI disease, Blood disorders, Other (see notes) Notes: Epilepsy, chronic pain, leukemia - Social History Smoking Status: Current every day smoker Alcohol use: No CD- Drugs: No Caffeine use: No Review of Systems 10-point ROS is otherwise unremarkable Physical Examination Temp Pulse Resp BP Pulse Ox 97.6 F 56 17 166/71 H 93 08/10/23 12:00 08/10/23 12:00 08/10/23 13:57 08/10/23 12:00 08/10/23 13:57 General: Alert, Oriented x3 HEENT: Atraumatic Neck: Supple Respiratory: Clear to auscultation bilaterally Cardiovascular: No edema, Normal S1 S2 Gastrointestinal: Normal bowel sounds Laboratory Data (last 24 hrs) 08/10/23 08/10/23 08/10/23 05:58 05:58 05:58 WBC 8.00 Hgb 12.1 Hct 36.6 Plt Count 176 PT 11.8 INR 1.07 Sodium 137 Potassium 3.5 BUN 27 H Creatinine 1.07 H Glucose 107 H Magnesium 2.3 Total Bilirubin 0.6 AST 23 ALT 18 Alkaline Phosphatase 87 - Problems (1) Hypertensive urgency Current Visit: Yes Status: Acute Plan: Continue Valsartan 160 mg daily Lopressor 100 mg po BID Spirnolactone 25 mg BID Norvasc 10 mg daily would recommend renal artery duplex. (2) CHF (congestive heart failure) Current Visit: No Status: Acute Plan: diastolic heart failure, chronic, NYHA 3, Class C currently euvolemic on exam, continue to monitor. Qualifiers: Heart failure type: unspecified Heart failure chronicity: chronic Qualified Code(s): I50.9 - Heart failure, unspecified (3) Atrial fibrillation Current Visit: No Status: Chronic Plan: s/p watchamn, continue Plavix 75 mg daily. Qualifiers: Atrial fibrillation type: paroxysmal Qualified Code(s): I48.0 - Paroxysmal atrial fibrillation
[2023-08-10] MEDS: ONDANSETRON 4 MG/2 ML VIAL IV PRN (17:20)
[2023-08-10] MEDS: clonazePAM 1 MG TAB PO PRN (20:54)
[2023-08-10] MEDS: TRAZODONE 50 MG TABLET PO SCH (20:55)
[2023-08-11 01:58] LABS: Specific Gravity 1.012 (1.005-1.030); Sqamous Epithelial <5 /HPF (None Seen); Urine Bacteria None Seen /HPF (<20); Urine Bilirubin NEGATIVE (Negative); Urine Blood Negative (Negative); Urine Clarity Clear (Clear); Urine Color Light-Yellow (Yellow); Urine Culture Reflex Order NOT NEEDED; Urine Glucose NEGATIVE (Negative); Urine Ketones NEGATIVE (Negative); Urine Microscopic Reflex YN ORDER UMIC; Urine Mucus Slight /HPF (None Seen); Urine Nitrite NEGATIVE (Negative); Urine Protein NEGATIVE (Negative); Urine RBC <5 /HPF (None Seen); Urine Urobilinogen Normal (Normal); Urine WBC <5 /HPF (<5)
[2023-08-11 04:16] LABS: Absolute Lymphocytes (CBC) 0.5 K/uL (0.7-4.9); Absolute Monocytes 0.2 K/uL (0.1-1.3); Absolute Neutrophil 7.1 K/uL (1.8-8.0); Basophils % 0.4 % (0-1.3); Eosinophils % 0.1 % (0-4.4); Hematocrit 33.8 % (36.0-45.0); Hemoglobin 11.1 g/dL (12.0-15.0); MCHC 32.8 g/dL (32.0-36.0); MCV 82.3 fL (80-100); MPV 7.8 fL (7.6-11.3); Monocytes % 2.7 % (3.3-12.3); Neutrophils % 90.8 % (41.7-73.7); Platelets 114 thou/uL (152-406)
[2023-08-11 04:19] LABS: Anion Gap 10.7 mEq/L (5.0-15.0); Magnesium 2.5 mg/dL (1.6-2.4); Potassium 3.7 mEq/L (3.5-5.1); Troponin High Sensitivity 6.5 pg/mL (<58.9)
[2023-08-11 04:32] LABS: Differential Total Cells Count 100; Lymphocytes 6 % (15-42); Monocytes 3 % (0-10); Platelet Estimate DECR; Segmented Neutrophils 91 % (40-80)
[2023-08-11 04:33] LABS: Blood Morphology Comment NOT SEEN (NOT SEEN)
[2023-08-11 07:24] LABS: Phosphorus 3.2 mg/dL (2.5-4.9)
[2023-08-11 08:20] LABS: Specific Gravity 1.019 (1.005-1.030); Sqamous Epithelial <5 /HPF (None Seen); Urine Bacteria None Seen /HPF (<20); Urine Bilirubin NEGATIVE (Negative); Urine Blood Negative (Negative); Urine Clarity Clear (Clear); Urine Color Light-Yellow (Yellow); Urine Culture Reflex Order NOT NEEDED; Urine Glucose NEGATIVE (Negative); Urine Ketones NEGATIVE (Negative); Urine Micro Reflex YN NO BILL MICROSCOPIC; Urine Mucus Slight /HPF (None Seen); Urine Nitrite NEGATIVE (Negative); Urine Protein NEGATIVE (Negative); Urine RBC <5 /HPF (None Seen); Urine Urobilinogen Normal (Normal); Urine WBC <5 /HPF (<5); Urine pH 5.5 (5.0-7.0)
--- NOTE | 2023-08-11 08:24 | P.PN ---
Subjective Date of Service: 08/11/23 Chief Complaint: Chest pain Chest pain improved, with as needed analgesia - Physical Exam General: Alert, In no apparent distress, Oriented x3 HEENT: Atraumatic, Normocephalic Neck: Supple, 2+ carotid pulse no bruit Respiratory: Normal air movement, Diminished Cardiovascular: No edema, Normal pulses Capillary refill: <2 Seconds Gastrointestinal: Normal bowel sounds, Soft and benign Musculoskeletal: No clubbing, No swelling Integumentary: No breakdown, No significant lesion Neurological: Normal speech, Normal strength at 5/5 x4 extr <HemalDiane - Last Filed: 08/11/23 17:38> Date of Service: 08/11/23 <Sandra Mendenhall - Last Filed: 08/11/23 22:04> Review of Systems Per HPI <Diane Recio - Last Filed: 08/11/23 17:38> Physical Examination - Vital Signs Temperature: 97.1 F Blood Pressure: 176/81 Pulse: 60 Respirations: 18 Pulse Ox (%): 90 <Diane Recio - Last Filed: 08/11/23 17:38> Assessment And Plan - Plan Plan: Hypertensive urgency with underlying primary hypertension/medical noncompliance continue home medications including metoprolol, IV Lasix given dyspnea, orthopnea, elevated BNP. Educated on cardiac diet Acute on chronic diastolic congestive heart failure Elevated BNP Continue IV diuresis, last echocardiogram performed in June shows normal EF. Continue other home medications. HIV Continue home medications, patient reports she is compliant with her antiretrovirals COPD Resume home meds As needed nebulized treatments, no wheezing noted at this time. DVT PPX: Lovenox Code status: Full Discharge Plan: Home Plan to discharge in: 24 Hours Discharge Plan: Home - Code Status/Comfort Care Code Status: Full Code Critical Care: No Time Spent Managing PTS Care (In Minutes): 35 <Diane Recio - Last Filed: 08/11/23 17:38> - Plan Pt seen and examined. I agree with the note by the FISH PROTECTOR. Will optimize BP regimen. Cardiology has cleared pt to go home, but she wants to stay till tomorrow. Pt will follow up with Cardiology in clinic <Sandra Mendenhall - Last Filed: 08/11/23 22:04>
[2023-08-11] MEDS: POTASSIUM CL SA 10 MEQ TAB PO ONE (08:44)
--- NOTE | 2023-08-11 11:51 | P.PN ---
Subjective Date of Service: 08/11/23 Chief Complaint: Chest pain Subjective: No new changes Review of Systems 10-point ROS is otherwise unremarkable Physical Examination - Vital Signs Temperature: 97.1 F Blood Pressure: 176/81 Pulse: 55 Respirations: 15 Pulse Ox (%): 96 - Physical Exam General: Alert, Oriented x3 HEENT: Atraumatic Neck: Supple Respiratory: Clear to auscultation bilaterally Cardiovascular: No edema, Normal S1 S2 Gastrointestinal: Normal bowel sounds Assessment And Plan - Current Problems (Diagnosis) (1) Hypertensive urgency Current Visit: Yes Status: Acute Plan: Continue Valsartan 160 mg daily Lopressor 100 mg po BID Spirnolactone 25 mg BID Norvasc 10 mg daily would recommend renal artery duplex (can be done as outpatient with her manager retail sales). (2) CHF (congestive heart failure) Current Visit: No Status: Acute Plan: diastolic heart failure, chronic, NYHA 3, Class C currently euvolemic on exam, continue to monitor. Qualifiers: Heart failure type: unspecified Heart failure chronicity: chronic Qualified Code(s): I50.9 - Heart failure, unspecified (3) Atrial fibrillation Current Visit: No Status: Chronic Plan: s/p watchamn, continue Plavix 75 mg daily. Qualifiers: Atrial fibrillation type: paroxysmal Qualified Code(s): I48.0 - Paroxysmal atrial fibrillation
--- NOTE | 2023-08-11 12:04 | P.DS ---
Admission Date: 08/10/23 Discharge Date: 08/11/23 Reason for Admission: Chest pain Consultations: Cardiology consult Brief History of Present Illness: 67-year-old female with history of HIV, hypertension, atrial fibrillation status post Watchman procedure, chronic diastolic just heart failure, presented to the emergency room with hypertension and chest pain. She reports history of COPD, reports associated shortness of breath, she reports symptoms started prior to arrival, chest pain 10 out of 10. Hypertensive urgency, EKG 74 beats/min. Rhythm is irregularly irregular, A fib. QRS [place] is Normal. QT interval is normal. No Q waves. T waves are Normal. No ST changes noted. BP 236 / 122; Pulse 74; Resp 18; Temp 97.7; Pulse Ox 97% on R/A; Weight 79.38 kg; Height 5 ft. 4 in. ; Pain 10/10; plan to admit for chest pain rule out AL, hypertensive urgency. Acute kidney injury BUN 27 creatinine 1.07, CBC unremarkable elevated left shift 79.5 laboratory evaluation elevated BNP 3301, opponent normal at 14.8 chest x-ray prominent pulmonary artery suggesting pulmonary hypertension, low lung volumes - Physical Exam General: Alert, In no apparent distress, Oriented x3 HEENT: Atraumatic, Normocephalic Neck: Supple, 2+ carotid pulse no bruit Respiratory: Normal air movement, Diminished Cardiovascular: No edema, Normal pulses Capillary refill: <2 Seconds Gastrointestinal: Normal bowel sounds, Soft and benign Musculoskeletal: No clubbing, No swelling Integumentary: No breakdown, No significant lesion Neurological: Normal speech, Normal strength at 5/5 x4 extr Hospital Course: 68 year-old female patient presented with chest pain. Was noted to have elevated BNP, history of acute on chronic heart failure. Condition improved with as needed analgesics, diuretics. Patient tolerating diet, stable for discharge to home with follow-up appointment with primary care physician. PROBLEM: Acute on chronic heart failure Chest pain serial troponins negative Acute kidney injury COPD HIV Discharged home on medication Spironolactone 25 1 p.o. twice daily Apresoline 50 mg 3 times daily as needed systolic greater than 150 (uses as needed med) Metoprolol 100 p.o. twice daily Norvasc 10 mg 1 p.o. daily Valsartan 160 mg 1 p.o. daily Inhalers albuterol 1-2 puffs every 4-6 hours as needed for cough shortness of breath wheezing Dulera inhaler 2 puffs daily Educated on cardiac diet, low-sodium, daily weights Continue home medicines as previously prescribed GOAL: Clear understanding of disease process Follow-up with cardiology after discharge Continue cardiac medications as previously prescribed INSTRUCTIONS: Physician Discharge Instructions: -Follow-up with PCP in 1 to 2 weeks -Please call if any questions regarding hospital stay -Please call nursing station at [phone] if any nursing or medication questions -Return to the emergency room if symptoms worsen Diet: ADA, low sodium Activity: Fall precautions <Diane Recio - Last Filed: 08/11/23 12:33> Admission Date: 08/10/23 Discharge Date: 08/11/23 Hospital Course: Pt seen and examined. I agree with note by the COMMUNICATIONS PROGRAMMER. Troponin is negative x 3. Cardiology evaluated pt and recommended plavix. She has a watchman device in place. Continue protonix. Continue home meds for BP. Will dc pt soon. <Sandra Mendenhall - Last Filed: 08/11/23 13:15> Disposition: ROUTINE DISCHARGE Discharge Condition: FAIR Vital Signs/Physical Exam: Temp Pulse Resp BP Pulse Ox 98.5 F 58 17 147/70 H 93 08/11/23 11:55 08/11/23 11:55 08/11/23 11:55 08/11/23 11:55 08/11/23 11:55 Laboratory Data at Discharge: WBC 7.80 thou/uL (4.3-10.9) 08/11/23 03:38 Hgb 11.1 g/dL (12.0-15.0) L D 08/11/23 03:38 Hct 33.8 % (36.0-45.0) L 08/11/23 03:38 Plt Count 114 thou/uL (152-406) L D 08/11/23 03:38 PT 11.8 SECONDS (9.5-12.5) 08/10/23 05:58 INR 1.07 08/10/23 05:58 Sodium 136 mEq/L (136-145) 08/11/23 03:38 Potassium 3.7 mEq/L (3.5-5.1) 08/11/23 03:38 BUN 35 mg/dL (7-18) H 08/11/23 03:38 Creatinine 1.42 mg/dL (0.55-1.02) H 08/11/23 03:38 Glucose 181 mg/dL (74-106) H 08/11/23 03:38 Phosphorus 3.2 mg/dL (2.5-4.9) 08/11/23 03:38 Magnesium 2.5 mg/dL (1.6-2.4) H 08/11/23 03:38 Total Bilirubin 0.6 mg/dL (0.2-1.0) 08/10/23 05:58 AST 23 U/L (15-37) 08/10/23 05:58 ALT 18 U/L (13-56) 08/10/23 05:58 Alkaline Phosphatase 87 U/L (45-117) 08/10/23 05:58 Triglycerides 60 mg/dL (<150) 08/11/23 03:38 Cholesterol 152 mg/dL (<200) 08/11/23 03:38 HDL Cholesterol 66 mg/dL (40-60) H 08/11/23 03:38 Cholesterol/HDL Ratio 2.30 08/11/23 03:38 <Diane Recio - Last Filed: 08/11/23 12:33> Vital Signs/Physical Exam: Temp Pulse Resp BP Pulse Ox 97.1 F 60 18 176/81 H 90 L 08/11/23 12:36 08/11/23 12:36 08/11/23 12:36 08/11/23 12:36 08/11/23 12:36 Laboratory Data at Discharge: WBC 7.80 thou/uL (4.3-10.9) 08/11/23 03:38 Hgb 11.1 g/dL (12.0-15.0) L D 08/11/23 03:38 Hct 33.8 % (36.0-45.0) L 08/11/23 03:38 Plt Count 114 thou/uL (152-406) L D 08/11/23 03:38 PT 11.8 SECONDS (9.5-12.5) 08/10/23 05:58 INR 1.07 08/10/23 05:58 Sodium 136 mEq/L (136-145) 08/11/23 03:38 Potassium 3.7 mEq/L (3.5-5.1) 08/11/23 03:38 BUN 35 mg/dL (7-18) H 08/11/23 03:38 Creatinine 1.42 mg/dL (0.55-1.02) H 08/11/23 03:38 Glucose 181 mg/dL (74-106) H 08/11/23 03:38 Phosphorus 3.2 mg/dL (2.5-4.9) 08/11/23 03:38 Magnesium 2.5 mg/dL (1.6-2.4) H 08/11/23 03:38 Total Bilirubin 0.6 mg/dL (0.2-1.0) 08/10/23 05:58 AST 23 U/L (15-37) 08/10/23 05:58 ALT 18 U/L (13-56) 08/10/23 05:58 Alkaline Phosphatase 87 U/L (45-117) 08/10/23 05:58 Triglycerides 60 mg/dL (<150) 08/11/23 03:38 Cholesterol 152 mg/dL (<200) 08/11/23 03:38 HDL Cholesterol 66 mg/dL (40-60) H 08/11/23 03:38 Cholesterol/HDL Ratio 2.30 08/11/23 03:38 <Sandra Mendenhall - Last Filed: 08/11/23 13:15> Diet: AHA Activity: Fall precautions Time spent managing pt's care (in minutes): 55 <Diane Recio - Last Filed: 08/11/23 12:33> <Sandra Mendenhall - Last Filed: 08/11/23 13:15> Home Medications: Omeprazole 40 mg PO DAILY 08/10/23 Sertraline [Zoloft*] 100 mg PO DAILY 08/10/23 Trazodone [Desyrel*] 50 mg PO BEDTIME 08/10/23 Vericiguat [Verquvo] 10 mg PO DAILY 08/10/23 Albuterol Inhaler [Ventolin Inhaler*] 2 puff IH Q6H PRN 30 Days #1 inh 08/11/23 Amlodipine [Norvasc*] 10 mg PO DAILY 30 Days #30 tab 08/11/23 Amlodipine [Norvasc] 10 mg PO DAILY 30 Days #30 tab 08/11/23 Buspirone HCl 30 mg PO BID 08/11/23 Hydralazine [Apresoline*] 50 mg PO TID PRN 30 Days #30 tab 08/11/23 Metoprolol Tartrate [Lopressor] 100 mg PO BID 30 Days #60 mg 08/11/23 Mometasone/Formoterol [Dulera 200 Mcg/5 Mcg Inhaler] 2 puff IH BID 30 Days #1 inhaler 08/11/23 Spironolactone [Aldactone*] 25 mg PO BID 30 Days #60 tab 08/11/23 Valsartan [Diovan*] 160 mg PO DAILY tab 08/11/23 Valsartan/Hydrochlorothiazide [Valsartan-Hctz 160-12.5 mg Tab] 1 each PO 30 MIN BEFORE HS #30 mg 08/11/23 New Medications: Spironolactone [Aldactone*] 25 mg PO BID 30 Days #60 tab Hydralazine [Apresoline*] 50 mg PO TID PRN 30 Days #30 tab PRN Reason: Titrate To Sbp (Must Define) Mometasone/Formoterol [Dulera 200 Mcg/5 Mcg Inhaler] 2 puff IH BID 30 Days #1 inhaler Metoprolol Tartrate [Lopressor] 100 mg PO BID 30 Days #60 mg Amlodipine [Norvasc] 10 mg PO DAILY 30 Days #30 tab Valsartan/Hydrochlorothiazide [Valsartan-Hctz 160-12.5 mg Tab] 1 each PO 30 MIN BEFORE HS #30 mg Albuterol Inhaler [Ventolin Inhaler*] 2 puff IH Q6H PRN 30 Days #1 inh PRN Reason: Shortness Of Breath Physician Discharge Instructions: 68 year-old female patient presented with chest pain. Was noted to have elevated BNP, history of acute on chronic heart failure. Condition improved with as needed analgesics, diuretics. Patient tolerating diet, stable for discharge to home with follow-up appointment with primary care physician. Educated on medication compliance PROBLEM: Acute on chronic heart failure Chest pain serial troponins negative Acute kidney injury likely secondary to prerenal congestive heart failure versus diuretic use COPD Tobacco use New prescription for spironolactone twice daily Dulera inhaler for shortness of breath and cough Albuterol inhaler shortness of breath cough follow up with cardiology outpatient Educated on cardiac diet Continue home medicines as previously prescribed GOAL: Clear understanding of disease process Follow-up with cardiology after discharge Continue cardiac medications as previously prescribed INSTRUCTIONS: Physician Discharge Instructions: -Follow-up with PCP in 1 to 2 weeks -Please call if any questions regarding hospital stay -Please call nursing station at [phone] if any nursing or medication questions -Return to the emergency room if symptoms worsen Diet: ADA, low sodium Activity: Fall precautions Followup: Lacey VARELA,Lele Peterson DO [Primary Care Provider] - Mike Lund MD [ACTIVE - CAN ADMIT] -
[2023-08-11] MEDS: FUROSEMIDE 40 MG/4 ML VIAL IV ONE (12:57)
--- NOTE | 2023-08-11 14:29 | EKG ---
Test Date: 2023-08-10 Test Time: 04:40:38 Attending Anesthesiologist: TRENT MEASUREMENT RESULTS: Intervals: Rate: 74 [place]: QRSD: 90 QT: 428 QTc: 475 [place]: P: [place]: QRS: 48 T: 199 INTERPRETIVE STATEMENTS: Atrial fibrillation with a competing junctional pacemaker Voltage criteria for left ventricular hypertrophy ST & T wave abnormality, consider inferolateral ischemia Abnormal ECG Compared to ECG 08/01/2023 16:23:17 ST (T wave) deviation now present Possible ischemia now present Sinus bradycardia no longer present T-wave abnormality no longer present Prolonged QT interval no longer present Electronically Signed On 08-11-23 14:24:06 CDT by Mike Lund
[2023-08-12] MEDS: PANTOPRAZOLE 40MG TABLET PO SCH (06:38)
[2023-08-12] MEDS: HYDRALAZINE HCL 20 MG/ML VIAL IV ONE (06:50)
[2023-08-12] MEDS: MORPHINE 2 MG/ML SYR IV ONE (06:50)
[2023-08-12 07:59] LABS: Absolute Lymphocytes (CBC) 1.1 K/uL (0.7-4.9); Absolute Monocytes 1.1 K/uL (0.1-1.3); Absolute Neutrophil 9.3 K/uL (1.8-8.0); Basophils % 0.3 % (0-1.3); Eosinophils % 0.1 % (0-4.4); Hematocrit 37.9 % (36.0-45.0); Hemoglobin 12.3 g/dL (12.0-15.0); Lymphocytes % 9.4 % (15.3-44.8); MCH 26.9 pg (27.0-35.0); MCHC 32.4 g/dL (32.0-36.0); MCV 82.9 fL (80-100); MPV 6.9 fL (7.6-11.3); Monocytes % 9.9 % (3.3-12.3); Neutrophils % 80.3 % (41.7-73.7); Platelets 225 thou/uL (152-406); RBC Red Blood Cell Count 4.57 M/uL (3.86-4.86); Red Cell Distribution Width 16.7 % (12.1-15.2)
[2023-08-12 08:14] LABS: Anion Gap 9.6 mEq/L (5.0-15.0); Magnesium 2.7 mg/dL (1.6-2.4); Potassium 3.6 mEq/L (3.5-5.1)
--- NOTE | 2023-08-12 08:36 | P.PN ---
Subjective Date of Service: 08/12/23 <Sandra Mendenhall - Last Filed: 08/12/23 12:45> Date of Service: 08/12/23 Chief Complaint: Chest pain Chest pain improved, with as needed analgesia - Physical Exam General: Alert, In no apparent distress, Oriented x3 HEENT: Atraumatic, Normocephalic Neck: Supple, 2+ carotid pulse no bruit Respiratory: Normal air movement, Diminished Cardiovascular: No edema, Normal pulses Capillary refill: <2 Seconds Gastrointestinal: Normal bowel sounds, Soft and benign Musculoskeletal: No clubbing, No swelling Integumentary: No breakdown, No significant lesion Neurological: Normal speech, Normal strength at 5/5 x4 extr <Diane Recio - Last Filed: 08/12/23 13:25> Physical Examination - Vital Signs Temperature: 97.1 F Blood Pressure: 187/88 Pulse: 55 Respirations: 18 Pulse Ox (%): 94 <Diane Recio - Last Filed: 08/12/23 13:25> Assessment And Plan - Plan Pt seen and examined. I agree with the note by the SENIOR PRODUCT DESIGNER. Pt is still complaining chest pain but her troponin is normal. She wants dialudid. We gave prn hydralazine for htn urgency. Will give gentle hydration for ROHAN. <Sandra Mendenhall - Last Filed: 08/12/23 12:45> - Plan Plan: Hypertensive urgency with underlying primary hypertension/medical noncompliance continue home medications including metoprolol, IV Lasix given dyspnea, orthopnea, elevated BNP. Educated on cardiac diet Medication noncompliance Acute on chronic diastolic congestive heart failure improved improved Elevated BNP improved Continue IV diuresis, last echocardiogram performed in June shows normal EF. Continue other home medications. BNP 4830, 1552 Acute kidney injury unknown baseline BUN 35 creatinine 1.42-> BUN 58 creatinine 1.63 Gentle IV fluid HIV Continue home medications, patient reports she is compliant with her antiretrovirals COPD Resume home meds As needed nebulized treatments, no wheezing noted at this time. DVT PPX: Lovenox Code status: Full Discharge Plan: Home Plan to discharge in: 24 Hours Discharge Plan: Home - Code Status/Comfort Care Code Status: Full Code Critical Care: No Time Spent Managing PTS Care (In Minutes): 35 <Diane Recio - Last Filed: 08/12/23 13:25>
[2023-08-12] MEDS ORDERED: ALBUTEROL 2.5 MG/3 ML NEB SOL NEB PRN (10:45)
[2023-08-12 11:03] VITALS: BMI 30.9
[2023-08-12] MEDS: NA CHLORIDE 0.9% 1,000 ML IV SCH (11:17)
[2023-08-12] MEDS: HYDRALAZINE HCL 25 MG TABLET PO PRN (11:17)
--- NOTE | 2023-08-12 13:23 | P.CNS ---
Date of Consult: 08/12/23 Reason for Consult: Renal failure Requesting Physician: Sandra Mendenhall Chief Complaint: Chest pain History of Present Illness: 68F w/ PMHx of CKD3a presumed to be 2/2 Htn, baseline SCr 1.1 (GFR 57) as of July 2023, Htn, HIV, COPD, chronic afib s/p Watchman procedure, & chronic diastolic heart failure, who was admitted for chest pain & accelerated Htn. BNP sig elevated. Referred to Nephrology 2/2 ROHAN. SCr inc to 1.6 today. No urinary complaints. BP better controlled. CP resolved. Allergies fentanyl Allergy (Severe, Verified 07/20/22 08:30) Hives adhesive tape Allergy (Verified 07/20/22 08:30) Rash butorphanol tartrate [From Stadol] Allergy (Verified 07/20/22 08:30) confusion metoclopramide HCl [From Reglan] Allergy (Verified 07/20/22 08:30) Shortness of breath sulfamethoxazole [From Bactrim] Allergy (Verified 07/20/22 08:30) Hives/Rash trimethoprim [From Bactrim] Allergy (Verified 07/20/22 08:30) Hives/Rash Bactrim DS Allergy (Intermediate, Uncoded 07/20/22 08:30) Nausea/Vomiting Home Medications: Omeprazole 40 mg PO DAILY 08/10/23 Sertraline [Zoloft*] 100 mg PO DAILY 08/10/23 Trazodone [Desyrel*] 50 mg PO BEDTIME 08/10/23 Vericiguat [Verquvo] 10 mg PO DAILY 08/10/23 Albuterol Inhaler [Ventolin Inhaler*] 2 puff IH Q6H PRN 30 Days #1 inh 08/11/23 Amlodipine [Norvasc*] 10 mg PO DAILY 30 Days #30 tab 08/11/23 Amlodipine [Norvasc] 10 mg PO DAILY 30 Days #30 tab 08/11/23 Buspirone HCl 30 mg PO BID 08/11/23 Hydralazine [Apresoline*] 50 mg PO TID PRN 30 Days #30 tab 08/11/23 Metoprolol Tartrate [Lopressor] 100 mg PO BID 30 Days #60 mg 08/11/23 Mometasone/Formoterol [Dulera 200 Mcg/5 Mcg Inhaler] 2 puff IH BID 30 Days #1 inhaler 08/11/23 Spironolactone [Aldactone*] 25 mg PO BID 30 Days #60 tab 08/11/23 Valsartan [Diovan*] 160 mg PO DAILY tab 08/11/23 Valsartan/Hydrochlorothiazide [Valsartan-Hctz 160-12.5 mg Tab] 1 each PO 30 MIN BEFORE HS #30 mg 08/11/23 - Past Medical/Surgical History Diabetic: No -: HIV- viral load currently undectable -: CAD -: Bipolar disorder -: Hypertension -: COPD on home O2 @ 2L -: Tobacco abuse -: former Alcohol abuse -: Anemia of chronic disease -: Hyperlipidemia -: GERD with hiatal hernia -: Atrial fibrillation-paroxysmal S/P Watchman procedure -: Chronic diastolic CHF -: Appendectomy Watchman procedure, -: Cholecystectomy -: left and right shoulder rotator cuff repair -: Right foot repair -: Right shoulder replacement -: right wrist -: hiatal hernia repair february 2021 -: right wrist Psychosocial/ Personal History: She lives at home. She is newly . - Family History Father Medical History: Heart disease, Hypertension, Lung disease, GI disease, Stroke, Cancer, Liver disease, Kidney disease Notes: Colon cancer Mother Medical History: Hypertension, Lung disease, GI disease, Blood disorders, Other (see notes) Notes: Epilepsy, chronic pain, leukemia - Social History Smoking Status: Current every day smoker Alcohol use: No CD- Drugs: No Caffeine use: No Review of Systems General: Weakness Eyes: Unremarkable ENT: Unremarkable Respiratory: Unremarkable Cardiovascular: Chest Pain Gastrointestinal: Unremarkable Genitourinary: Unremarkable Musculoskeletal: Unremarkable Integumentary: Unremarkable Neurological: Unremarkable Lymphatics: Unremarkable Physical Examination Temp Pulse Resp BP Pulse Ox 97.1 F 55 18 187/88 H 94 08/12/23 08:36 08/12/23 08:36 08/12/23 08:36 08/12/23 08:36 08/12/23 08:36 General: Other (appears as her stated age) HEENT: Atraumatic, Normocephalic Neck: Supple Respiratory: Other (symmetric chest expansion) Cardiovascular: No rubs, No murmurs Gastrointestinal: Soft and benign, No guarding Musculoskeletal: No clubbing Integumentary: No warmth Neurological: Normal tone Lymphatics: No axilla or inguinal lymphadenopathy Urinary: Other (no bladder distention) External genitalia: Deferred Rectal: Deferred Conclusions/Impression: # ROHAN 2/2 accelerated Htn SCr increased to 1.6 Urinalysis unremarkable F/u random urine chem & UPCR Christine po fluid intake BP control # 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
[2023-08-12 13:30] VITALS: O2SAT 93
--- NOTE | 2023-08-12 14:34 | P.PN ---
Subjective Date of Service: 08/12/23 Chief Complaint: Chest pain Subjective: No new changes Review of Systems 10-point ROS is otherwise unremarkable Physical Examination - Vital Signs Temperature: 97.1 F Blood Pressure: 187/88 Pulse: 55 Respirations: 18 Pulse Ox (%): 94 - Physical Exam General: Alert, Oriented x3 HEENT: Atraumatic Neck: Supple Respiratory: Clear to auscultation bilaterally Cardiovascular: No edema, Normal S1 S2 Gastrointestinal: Normal bowel sounds Assessment And Plan - Current Problems (Diagnosis) (1) Hypertensive urgency Current Visit: Yes Status: Acute Plan: Continue Valsartan 160 mg daily Lopressor 100 mg po BID Spirnolactone 25 mg BID Norvasc 10 mg daily add Hydralazine 25 mg po TID. would recommend renal artery duplex (can be done as outpatient with her medical doctor). (2) CHF (congestive heart failure) Current Visit: No Status: Acute Plan: diastolic heart failure, chronic, NYHA 3, Class C currently euvolemic on exam, continue to monitor. Qualifiers: Heart failure type: unspecified Heart failure chronicity: chronic Qualified Code(s): I50.9 - Heart failure, unspecified (3) Atrial fibrillation Current Visit: No Status: Chronic Plan: s/p watchamn, continue Plavix 75 mg daily. Qualifiers: Atrial fibrillation type: paroxysmal Qualified Code(s): I48.0 - Paroxysmal atrial fibrillation
[2023-08-12] MEDS: HYDRALAZINE HCL 25 MG TABLET PO SCH (14:37)
[2023-08-12 16:34] VITALS: BP 144/72; TEMP 96.9
--- NOTE | 2023-08-12 17:48 | RAD REPORT ---
EXAM DESCRIPTION: US - Renal Ultrasound-Complete - 08/12/2023 5:33 pm CLINICAL HISTORY: marilynn vs ckd, assess for hydronephrosis ckd change COMPARISON: Renal Ultrasound-Complete dated 11/27/2022 FINDINGS: Both kidneys are normal in size, shape and echotexture. Large bilateral renal cysts are pr esent, largest on the left measuring 5.5 cm. The right kidney measures 11.4 x 5.4 x 4.0 cm. No hydronephrosis, focal mass or perinephric fluid. The left kidney measures 10.7 x 5.0 x 3.9 cm. No hydronephrosis, focal mass or perinephric fluid. The urinary bladder is incompletely distended without gross abnormality seen. IMPRESSION: Bilateral benign appearing renal cysts, otherwise negative study.
[2023-08-13] MEDS ORDERED: PANTOPRAZOLE 40MG TABLET PO SCH (07:30)
--- NOTE | 2023-08-15 14:28 | EKG ---
Test Date: 2023-08-12 Test Time: 07:22:10 Medical Pathology Teacher: ADAM MEASUREMENT RESULTS: Intervals: Rate: 63 [place]: QRSD: 90 QT: 454 QTc: 464 [place]: P: [place]: QRS: 2 T: -15 INTERPRETIVE STATEMENTS: Junctional rhythm with occasional premature ventricular complexes Voltage criteria for left ventricular hypertrophy Nonspecific ST and T wave abnormality Abnormal ECG Compared to ECG 08/10/2023 04:40:38 Junctional rhythm now present Ventricular premature complex(es) now present Atrial fibrillation no longer present Possible ischemia no longer present ST (T wave) deviation still present Electronically Signed On 08-15-23 14:17:14 CDT by Mike Lund
== END 2023-08-12 18:45 | disposition left against medical advice (07) | DRG 291 ==
LOC: ER 04:30 → ERHOLD 07:22 → 4TH 08:44
PROVIDERS: ADMIT Hospitalist; ATTEND Hospitalist
DX: I13.0 Hypertensive heart and chronic kidney disease with heart failure and stage 1 through stage 4 chronic kidney disease, or unspecified chronic kidney disease (principal); I50.33 Acute on chronic diastolic (congestive) heart failure; N17.9 Acute kidney failure, unspecified; I16.0 Hypertensive urgency; N18.31 Chronic kidney disease, stage 3a; I48.0 Paroxysmal atrial fibrillation; J44.9 Chronic obstructive pulmonary disease, unspecified; Z21 Asymptomatic human immunodeficiency virus [HIV] infection status; Z88.1 Allergy status to other antibiotic agents; Z88.2 Allergy status to sulfonamides; Z88.8 Allergy status to other drugs, medicaments and biological substances; Z90.49 Acquired absence of other specified parts of digestive tract; Z79.02 Long term (current) use of antithrombotics/antiplatelets; Z79.899 Other long term (current) drug therapy; Z96.611 Presence of right artificial shoulder joint; Z91.199 Patient's noncompliance with other medical treatment and regimen due to unspecified reason
CPT/HCPCS: 36415; 71045; 76770; 80048; 80061; 80076; 81001; 83735; 83880; 84100; 84484; 85025; 85610; 93005; 94760; 96374; 96375; 99285; J0360; J1940; J2270; J2405; J2930; J3360; J3535; J7030; J7613; J7644

== ENCOUNTER → 2023-08-15 | Emergency (ER) | payer OTHER ==
[~2023-08-15] MED LIST changes: -ASPIRIN 81 MG CHEWABLE TABLET ONE; +DIPHENHYDRAMINE 50 MG/ML VIAL ONE; -HYDRALAZINE HCL 10 MG TABLET ONE; -HYDRALAZINE HCL 20 MG/ML VIAL ONE; +METOCLOPRAMIDE 10 MG/2mL INJ ONE; -MORPHINE 4 MG/ML SYR ONE; +NA CHLORIDE 0.9% 500 ML ONE; -NITROGLYCERIN 0.4 MG/TAB SL ONE; -ONDANSETRON 4 MG/2 ML VIAL ONE
[2023-08-15 21:14] LABS: Absolute Eosinophils 0.1 K/uL (0-0.5); Absolute Lymphocytes (CBC) 1.3 K/uL (0.7-4.9); Absolute Monocytes 0.7 K/uL (0.1-1.3); Absolute Neutrophil 5.4 K/uL (1.8-8.0); Basophils % 0.5 % (0-1.3); Eosinophils % 1.9 % (0-4.4); Hematocrit 36.3 % (36.0-45.0); Hemoglobin 12.1 g/dL (12.0-15.0); Lymphocytes % 17.3 % (15.3-44.8); MCH 27.3 pg (27.0-35.0); MCHC 33.4 g/dL (32.0-36.0); MCV 81.6 fL (80-100); Monocytes % 8.7 % (3.3-12.3); Neutrophils % 71.6 % (41.7-73.7); Nucleated Red Blood Cells % 0.2 % (0-0); Platelets 201 thou/uL (152-406); RBC Red Blood Cell Count 4.45 M/uL (3.86-4.86); Red Cell Distribution Width 16.6 % (12.1-15.2)
[2023-08-15 21:30] LABS: Albumin 3.3 g/dL (3.4-5.0); Albumin/Globulin Ratio 0.9 (1.1-1.8); Anion Gap 8.8 mEq/L (5.0-15.0); Bilirubin Total 0.5 mg/dL (0.2-1.0); Globulin 3.8 g/dL (2.3-3.5); Potassium 3.8 mEq/L (3.5-5.1); Protein, Total 7.1 g/dL (6.4-8.2)
--- NOTE | 2023-08-15 21:38 | EDPHYS ---
Physician Documentation [facility] Name: Marjan Kolb Age: 68 yrs Sex: Female : 1955 Arrival Date: 08/15/2023 Time: 20:34 Bed 8 Private MD: ED Physician Yayo August HPI: 08/14 20:46 This 68 yrs old Female presents to ER via EMS with complaints of Headache. ec2 20:46 Patient arrives today for evaluation of headache. Patient with history of hypertension, ec2 states that she had noticed her blood pressure elevated also complaining of a headache. Reports no LOC, no head trauma, denies any nausea or vomiting or other concerns.. Historical: - Allergies: 20:47 Azithromycin; cm10 20:47 Bactrim; cm10 20:47 butorphanol; cm10 20:47 Fentanyl; cm10 20:47 Reglan; cm10 20:47 Sulfa (Sulfonamide Antibiotics); cm10 20:47 TRIMETHOPRIM; cm10 - PMHx: 20:47 angina pectoris; Anxiety; Atrial fibrillation; Bipolar disorder; COPD cm10 (Cholecystectomy); esophageal varicies; Hepatitis; HIV positive; Hypertensive disorder; Migraine; panic attack; - PSHx: 20:47 Appendectomy; Cholecystectomy; cm10 - Immunization history:: Adult Immunizations up to date. - Social history:: Smoking status: Patient reports the use of cigarette tobacco products, unknown amount. ROS: 20:46 Constitutional: as per hpi ec2 Exam: 20:46 Constitutional: GEN: NAD Head: atraumatic Eyes: EOMI Ears: External ears are ec2 normal. CV: regular rate LUNGS: no respiratory distress ABD: non-distended SKIN: no evidence of rashes MSK: no evidence of trauma NEURO: moves all extremities equally, cranial nerves II through XII intact, strength intact in upper extremities and lower extremities Vital Signs: 20:43 BP 125 / 83; Pulse 53; Resp 16; Pulse Ox 95% on R/A; Pain 8/10; cm10 20:45 BP 144 / 73; Pulse 53; Pulse Ox 98% on R/A; km8 21:00 BP 136 / 72; Pulse 51; Pulse Ox 95% on R/A; km8 21:53 BP 125 / 88; Pulse 56; Resp 16; Pulse Ox 98% ; cm10 20:43 Pain Scale: Adult cm10 MDM: 20:41 Patient medically screened. ec2 20:46 Data reviewed: vital signs. ED course: Patient arrives today for evaluation of ec2 headache. Examination remarkable for neuro intact individual is otherwise in no acute distress. Will obtain lab work, give the patient medications for headache and reassess. Evaluate for electrolyte disturbances, anemia, renal dysfunction. Doubt intracranial mass or brain bleed given neuro intact status and overall well appearance.. 21:37 ED course: On reassessment patient is well-appearing in no acute distress. Will ec2 discharge home. Labs are reassuring.. 08/14 20:42 Order name: CBC with Diff; Complete Time: 21:37 ec2 08/14 20:42 Order name: CMP; Complete Time: 21:37 ec2 Administered Medications: 21:03 Drug: metoCLOPramide IVP 10 mg IVP once; over 1 to 2 minutes Route: IVP; Site: Other; [facility] 21:43 Follow up: Response: No adverse reaction [facility] 21:03 Drug: diphenhydrAMINE IVP 25 mg IVP once Route: IVP; Site: Other; [facility] 21:43 Follow up: Response: No adverse reaction [facility] 21:03 Drug: NS 0.9% IV 500 ml IV at bolus once Route: IV; Rate: bolus; Site: Other; [facility] 21:54 Follow up: Response: No adverse reaction; IV Status: Completed infusion; IV Intake: cm10 500ml Disposition Summary: 08/15/23 21:38 Discharge Ordered Notes: Location: Home ec2 Condition: Stable ec2 Diagnosis - Headache ec2 Followup: ec2 - With: Private Physician - When: - Reason: Re-evaluation by your physician Discharge Instructions: - Discharge Summary Sheet ec2 - General Headache Without Cause ec2 Forms: - Medication Reconciliation Form ec2 - Thank You Letter ec2 - Antibiotic Education ec2 - Prescription Opioid Use ec2 - Patient Portal Instructions ec2 - Leadership Thank You Letter ec2 Signatures: Dispatcher [employer] Anika Cárdenas, RN RN cm10 Yayo August MD MD ec2 Emelina Carmona RN RN km8
--- NOTE | 2023-08-15 21:38 | ER ---
Nurse's Notes [facility] Name: Marjan Kolb Age: 68 yrs Sex: Female : 1955 Arrival Date: 08/15/2023 Time: 20:34 Bed 8 Private MD: Diagnosis: Headache Presentation: 08/14 20:43 Coronavirus screen: Vaccine status: Patient reports receiving the 2nd dose of the covid cm10 vaccine. Client denies travel out of the [place] in the last 14 days. At this time, the client does not indicate any symptoms associated with coronavirus-19. Ebola Screen: Patient denies travel to an Ebola-affected area in the 21 days before illness onset. No symptoms or risks identified at this time. Initial Sepsis Screen: Does the patient meet any 2 criteria? No. Patient's initial sepsis screen is negative. Does the patient have a suspected source of infection? No. Patient's initial sepsis screen is negative. Risk Assessment: Do you want to hurt yourself or someone else? Patient reports no desire to harm self or others. Onset of symptoms was August 15, 2023. 20:43 Method Of Arrival: EMS: [facility] cm10 20:43 Acuity: BLAYNE 3 cm10 20:43 Chief complaint: Patient states: EMS reports toned out for high blood pressure, pt cm10 reports taking her night time blood pressure meds. Pt complaining of headache to top of head and describes it as a sharp constant pain. EMS reports giving Tylenol 1G. Care prior to arrival: Medication(s) given: Tylenol, 1000 mg. Triage Assessment: 20:42 General: Appears in no apparent distress. comfortable, Behavior is calm, cooperative. cm10 Pain: Complains of pain in head. Neuro: No deficits noted. Level of Consciousness is awake, alert, obeys commands, Oriented to person, place, time, situation. Neuro: Reports headache. Cardiovascular: No deficits noted. Capillary refill < 3 seconds Patient's skin is warm and dry. Respiratory: No deficits noted. Airway is patent Respiratory effort is even, unlabored, Respiratory pattern is regular, symmetrical. GI: No deficits noted. No signs and/or symptoms were reported involving the gastrointestinal system. : No deficits noted. No signs and/or symptoms were reported regarding the genitourinary system. Derm: No deficits noted. No signs and/or symptoms reported regarding the dermatologic system. Skin is intact. Musculoskeletal: No deficits noted. Range of motion: intact in all extremities. Historical: - Allergies: 20:47 Azithromycin; cm10 20:47 Bactrim; cm10 20:47 butorphanol; cm10 20:47 Fentanyl; cm10 20:47 Reglan; cm10 20:47 Sulfa (Sulfonamide Antibiotics); cm10 20:47 TRIMETHOPRIM; cm10 - PMHx: 20:47 angina pectoris; Anxiety; Atrial fibrillation; Bipolar disorder; COPD cm10 (Cholecystectomy); esophageal varicies; Hepatitis; HIV positive; Hypertensive disorder; Migraine; panic attack; - PSHx: 20:47 Appendectomy; Cholecystectomy; cm10 - Immunization history:: Adult Immunizations up to date. - Social history:: Smoking status: Patient reports the use of cigarette tobacco products, unknown amount. Screenin:48 [facility] ED Fall Risk Assessment (Adult) History of falling in the last 3 months, cm10 including since admission No falls in past 3 months (0 pts) Confusion or Disorientation No (0 pts) Intoxicated or Sedated No (0 pts) Impaired Gait No (0 pts) Mobility Assist Device Used No (0 pt) Altered Elimination No (0 pt) Score/Fall Risk Level 0 - 2 = Low Risk Oriented to surroundings, Maintained a safe environment, Hourly rounding (assess needs \T\ fall precautionary measures) done. Abuse screen: Denies threats or abuse. Denies injuries from another. Nutritional screening: No deficits noted. Tuberculosis screening: No symptoms or risk factors identified. Assessment: 21:03 Reassessment: EMS stated NKDA upon arrival to ER, pt verified NKDA; explained that this km8 RN was going to give Reglan, pt did not mention any allergy to this medication; once back to chart, charted noted to have allergy to Reglan from a previous visit; pt still states NKDA, Dr. August notified, pt VSS and will continue to be monitored. 21:43 Reassessment: Patient appears in no apparent distress at this time. No changes from km8 previously documented assessment. Patient and/or family updated on plan of care and expected duration. Pain level reassessed. Patient is alert, oriented x 3, equal unlabored respirations, skin warm/dry/pink. Vital Signs: 20:43 BP 125 / 83; Pulse 53; Resp 16; Pulse Ox 95% on R/A; Pain 8/10; cm10 20:45 BP 144 / 73; Pulse 53; Pulse Ox 98% on R/A; km8 21:00 BP 136 / 72; Pulse 51; Pulse Ox 95% on R/A; km8 21:53 BP 125 / 88; Pulse 56; Resp 16; Pulse Ox 98% ; cm10 20:43 Pain Scale: Adult cm10 ED Course: 20:29 Initial lab(s) drawn, by me, held in ED. Inserted saline lock: 22 gauge in left ,using cm10 aseptic technique. Foot Blood collected. 20:35 Patient arrived in ED. km8 20:35 Yayo August MD is Attending Physician. ec2 20:43 Triage completed. cm10 20:45 Anika Simons, RN is Primary Nurse. cm10 20:46 Arm band placed on Patient placed in an exam room, on a stretcher, on pulse oximetry. cm10 20:49 Patient has correct armband on for positive identification. Placed in gown. Bed in low cm10 position. Call light in reach. Side rails up X2. Provided Education on: ER process and procedures.. Pulse ox on. NIBP on. 20:50 CMP Sent. km8 20:50 CBC with Diff Sent. km8 21:43 No provider procedures requiring assistance completed. km8 21:56 IV discontinued, intact, bleeding controlled, No redness/swelling at site. Pressure cm10 dressing applied. Administered Medications: 21:03 Drug: metoCLOPramide IVP 10 mg IVP once; over 1 to 2 minutes Route: IVP; Site: Other; 21:43 Follow up: Response: No adverse reaction 21:03 Drug: diphenhydrAMINE IVP 25 mg IVP once Route: IVP; Site: Other; 21:43 Follow up: Response: No adverse reaction 21:03 Drug: NS 0.9% IV 500 ml IV at bolus once Route: IV; Rate: bolus; Site: Other; 21:54 Follow up: Response: No adverse reaction; IV Status: Completed infusion; IV Intake: cm10 500ml Medication: 20:48 VIS not applicable for this client. cm10 Intake: 21:54 IV: 500ml; Total: 500ml. cm10 Outcome: 21:38 Discharge ordered by . ec2 21:56 Discharged to home via wheelchair, cm10 21:56 Condition: good 21:56 Discharge instructions given to patient, Instructed on discharge instructions, follow up and referral plans. Demonstrated understanding of instructions, follow-up care, 22:12 Patient left the ED. km8 Signatures: Anika Simons RN RN cm10 Yayo August MD MD ec2 Emelina Carmona RN RN km8 Corrections: (The following items were deleted from the chart) 21:07 20:43 BP 125 / 83; Pulse 53bpm; Resp 16bpm; Pulse Ox 95% RA; cm10 cm10
[2023-08-15 22:48] VITALS: BP 125/88; O2SAT 98
== END ==
LOC: ER 20:34
DX: R51.9 Headache, unspecified (principal); I10 Essential (primary) hypertension; Z21 Asymptomatic human immunodeficiency virus [HIV] infection status; Z88.1 Allergy status to other antibiotic agents; Z88.2 Allergy status to sulfonamides; Z88.5 Allergy status to narcotic agent; Z88.8 Allergy status to other drugs, medicaments and biological substances
CPT/HCPCS: 96361; 85025; 36415; 80053; 96375; 96374; 99284; J2765; J1200; J7040

== ENCOUNTER 2023-10-10 07:50 | Inpatient (IN) | payer OTHER ==
[2023-10-10] MEDS ORDERED: ONDANSETRON 4 MG/2 ML VIAL ONE (08:19)
[2023-10-10] MEDS ORDERED: NA CHLORIDE 0.9% 500 ML ONE (08:19)
[2023-10-10] MEDS ORDERED: MORPHINE 4 MG/ML SYR ONE ×2 (08:19→10:27)
[2023-10-10 08:24] LABS: Hematocrit 39.4 % (36.0-45.0); Hemoglobin 12.9 g/dL (12.0-15.0); MCH 28.1 pg (27.0-35.0); MCHC 32.8 g/dL (32.0-36.0); MCV 85.5 fL (80-100); MPV 6.8 fL (7.6-11.3); Platelets 149 thou/uL (152-406); RBC Red Blood Cell Count 4.61 M/uL (3.86-4.86); Red Cell Distribution Width 18.7 % (12.1-15.2)
[2023-10-10 08:25] LABS: Absolute Lymphocytes (CBC) 0.6 K/uL (0.7-4.9); Absolute Monocytes 0.4 K/uL (0.1-1.3); Basophils % 0.3 % (0-1.3); Eosinophils % 0.4 % (0-4.4); Lymphocytes % 7.3 % (15.3-44.8); Monocytes % 4.9 % (3.3-12.3); Neutrophils % 87.1 % (41.7-73.7)
[2023-10-10 08:27] LABS: PT Prothrombin Time 11.2 SECONDS (9.5-12.5); Protime INR 1.02
[2023-10-10 08:35] LABS: SARS-CoV-2 Antigen CONTROL BLUE LINE VIS/BG OK; SARS-CoV-2 Antigen Rapid Res Negative (Negative)
--- NOTE | 2023-10-10 08:47 | RAD REPORT ---
EXAM DESCRIPTION: RAD - Chest Single View - 10/10/2023 8:41 am CLINICAL HISTORY: ABDOMINAL DISTENTION Chest pain. COMPARISON: Chest Single View dated 10/09/2023; Chest Single View dated 08/10/2023; Chest Single View dated 08/08/2023; Chest Single View dated 08/01/2023; Chest Abd Pelvis Wo Con dated 10/10/2023 FINDINGS: Portable technique limits examination quality. The lungs are grossly clear. Cardiac size is prominent. The pulmonary arterial tree appears enlarged suggesting underlying pulmonary arterial hypertension. Bilateral shoulder arthroplasty.
--- NOTE | 2023-10-10 08:51 | RAD REPORT ---
EXAM DESCRIPTION: CT - Chest Abd Pelvis Wo Con - 10/10/2023 8:36 am CLINICAL HISTORY: Chest and abdomen pain. ABDOMINAL DISTENTION COMPARISON: Thorax W/ Con dated 09/20/2022 TECHNIQUE: Limited noncontrast study was performed. All CT scans are performed using dose optimization technique as appropriate and may include automated exposure control or mA/KV adjustment according to patient size. FINDINGS: The lungs are clear.No pleural or pericardial effusion.No intrathoracic adenopathy. The main pulmonary artery appears enlarged measuring up to 5 cm transverse dimension. Suggest correla tion for the possibility of underlying pulmonary arterial hypertension. Liver size is prominent. No aggressive liver mass or biliary dilatation. Cholecystectomy clips. The s pleen, pancreas, adrenal glands are normal. Bilateral renal cysts are present. Multiple dilated small bowel loops are seen in the central abdomen maximally measuring 4.2 cm. No marlin e air or abscess. Nonvisualized appendix. No pathologic lymphadenopathy in the abdomen or pelvis. No worrisome osseous finding. IMPRESSION: Moderate mechanical small-bowel obstruction is present. No free air or abscess. Findings suspicious for underlying pulmonary arterial hypertension.
[2023-10-10 09:08] LABS: Albumin 3.6 g/dL (3.4-5.0); Albumin/Globulin Ratio 0.9 (1.1-1.8); Anion Gap 5.9 mEq/L (5.0-15.0); Bilirubin Direct 0.2 mg/dL (0-0.2); Bilirubin Indirect, Calculated 0.4 mg/dL (0.2-0.8); Bilirubin Total 0.6 mg/dL (0.2-1.0); Magnesium 2.5 mg/dL (1.6-2.4); Potassium 3.9 mEq/L (3.5-5.1); Protein, Total 7.6 g/dL (6.4-8.2); Troponin High Sensitivity 7.6 pg/mL (<58.9)
[2023-10-10 09:52] LABS: Blood Morphology Comment NOT SEEN (NOT SEEN); Platelet Estimate ADEQ; White Blood Cell Scan OK (OK)
[2023-10-10] MEDS ORDERED: FAMOTIDINE 20 MG/2 ML VIAL IV ONE (10:10)
--- NOTE | 2023-10-10 10:24 | EDPHYS ---
Physician Documentation [facility] Name: Marjan Kolb Age: 68 yrs Sex: Female : 1955 Arrival Date: 10/10/2023 Time: 07:50 Bed 15 Private MD: Justus Cervantes HPI: 10/09 08:57 This 68 yrs old Female presents to ER via EMS with complaints of thomas Nausea/Vomiting, Abdominal Pain. 08:57 The patient presents to the emergency department with nausea, vomiting, abdominal pain, thomas of the right upper quadrant and left upper quadrant. Onset: The symptoms/episode began/occurred 1 day(s) ago. Possible causes: unknown. The symptoms are aggravated by food , The symptoms are alleviated by nothing. remaining still. Associated signs and symptoms: Pertinent positives: abdominal pain, nausea, vomiting. Severity of symptoms: At their worst the symptoms were moderate in the emergency department the symptoms are unchanged. The patient has not experienced similar symptoms in the past. Historical: - Allergies: 07:53 Azithromycin; aa5 07:53 Bactrim; aa5 07:53 butorphanol; aa5 07:53 Fentanyl; aa5 07:53 Reglan; aa5 07:53 Sulfa (Sulfonamide Antibiotics); aa5 07:53 TRIMETHOPRIM; aa5 - PMHx: 07:53 angina pectoris; Anxiety; Atrial fibrillation; Bipolar disorder; COPD (Unknown); aa5 esophageal varicies; Hepatitis; HIV positive; Hypertensive disorder; Migraine; panic attack; - PSHx: 07:53 Appendectomy; Cholecystectomy; aa5 - Immunization history:: Adult Immunizations unknown. - Infectious Disease History:: Denies. - Social history:: Smoking status: Patient/guardian denies using tobacco. ROS: 08:58 Constitutional: Negative for fever, chills, and weight loss, Eyes: Negative for injury, thomas pain, redness, and discharge, ENT: Negative for injury, pain, and discharge, Neck: Negative for injury, pain, and swelling, Cardiovascular: Negative for chest pain, palpitations, and edema, Respiratory: Negative for shortness of breath, cough, wheezing, and pleuritic chest pain, Back: Negative for injury and pain, : Negative for injury, bleeding, discharge, and swelling, MS/Extremity: Negative for injury and deformity, Skin: Negative for injury, rash, and discoloration, Neuro: Negative for headache, weakness, numbness, tingling, and seizure, Psych: Negative for depression, anxiety, suicide ideation, homicidal ideation, and hallucinations, Allergy/Immunology: Negative for hives, rash, and allergies, Endocrine: Negative for neck swelling, polydipsia, polyuria, polyphagia, and marked weight changes, Hematologic/Lymphatic: Negative for swollen nodes, abnormal bleeding, and unusual bruising, 08:58 Abdomen/GI: Positive for abdominal pain, nausea and vomiting, of the epigastric area, right upper quadrant and left upper quadrant, Exam: 08:58 Constitutional: This is a well developed, well nourished patient who is awake, alert, thomas and in no acute distress. Head/Face: Normocephalic, atraumatic. Eyes: Pupils equal round and reactive to light, extra-ocular motions intact. Lids and lashes normal. Conjunctiva and sclera are non-icteric and not injected. Cornea within normal limits. Periorbital areas with no swelling, redness, or edema. ENT: Nares patent. No nasal discharge, no septal abnormalities noted. Tympanic membranes are normal and external auditory canals are clear. Oropharynx with no redness, swelling, or masses, exudates, or evidence of obstruction, uvula midline. Mucous membranes moist. Neck: Trachea midline, no thyromegaly or masses palpated, and no cervical lymphadenopathy. Supple, full range of motion without nuchal rigidity, or vertebral point tenderness. No Meningismus. Chest/axilla: Normal chest wall appearance and motion. Nontender with no deformity. No lesions are appreciated. Cardiovascular: Regular rate and rhythm with a normal S1 and S2. No gallops, murmurs, or rubs. Normal PMI, no JVD. No pulse deficits. Respiratory: Lungs have equal breath sounds bilaterally, clear to auscultation and percussion. No rales, rhonchi or wheezes noted. No increased work of breathing, no retractions or nasal flaring. Back: No spinal tenderness. No costovertebral tenderness. Full range of motion. Female : Normal external genitalia. Skin: Warm, dry with normal turgor. Normal color with no rashes, no lesions, and no evidence of cellulitis. MS/ Extremity: Pulses equal, no cyanosis. Neurovascular intact. Full, normal range of motion. Neuro: Awake and alert, GCS 15, oriented to person, place, time, and situation. Cranial nerves II-XII grossly intact. Motor strength 5/5 in all extremities. Sensory grossly intact. Cerebellar exam normal. Normal gait. Psych: Awake, alert, with orientation to person, place and time. Behavior, mood, and affect are within normal limits. 08:58 ECG was reviewed by the Attending Physician. 08:58 Abdomen/GI: Inspection: distension, Bowel sounds: active, Liver: no appreciated palpable abnormalities, Hernia: not appreciated, Vital Signs: 07:53 BP 190 / 104; Pulse 78; Resp 18 S; Temp 97.8(TE); Pulse Ox 96% on R/A; Pain 10/10; aa5 09:00 BP 172 / 90; Pulse 66; Resp 16 S; Pulse Ox 93% on R/A; aa5 07:53 Pain Scale: Adult aa5 MDM: 07:53 Patient medically screened. [facility] 09:00 Differential diagnosis: Nonspecific abd pain, gastritis, pancreatitis, diverticulitis, thomas viral gastroenteritis, gastroenteritis. Data reviewed: vital signs, nurses notes, EMS record, lab test result(s), EKG, radiologic studies, CT scan, plain films. Consideration of Admission/Observation Patient was admitted/placed on observation. Escalation of care including admission/observation considered. Independent interpretation of the following test(s) in the Emergency Department EKG: See my EKG interpretation above. Test considered but Not performed: Ultrasound no abd usg. Care significantly affected by the following chronic conditions: Hypertension, Obesity, anxiety, a fib, bipolar, copd, eso varcies. 10/09 07:54 Order name: Basic Metabolic Panel; Complete Time: 10:17 [facility] 10/09 07:54 Order name: CBC with Diff; Complete Time: 10:17 [facility] 10/09 07:54 Order name: LFT's; Complete Time: 10: [facility] 10/09 07:54 Order name: Magnesium; Complete Time: 10: [facility] 10/09 07:54 Order name: NT PRO-BNP; Complete Time: 10:17 [facility] 10/09 07:54 Order name: PT-INR; Complete Time: 10:17 [facility] 10/09 07:54 Order name: Troponin HS; Complete Time: 10: [facility] 10/09 07:54 Order name: Lipase; Complete Time: 10: [facility] 10/09 07:54 Order name: Flu; Complete Time: 10: [facility] 10/09 07:54 Order name: SARS RAPID; Complete Time: : [facility] 10/09 07:54 Order name: Urinalysis w/ reflexes [facility] 10/09 08:42 Order name: CBC Smear Scan; Complete Time: 10: [facility] 10/09 07:54 Order name: XRAY Chest (1 view); Complete Time: : [facility] 10/09 08:25 Order name: CT Chest Abdomen Pelvis W/O Contrast; Complete Time: : [facility] 10/09 07:54 Order name: Cardiac monitoring; Complete Time: 08: [facility] 10/09 07:54 Order name: EKG - Nurse/Tech; Complete Time: 08: [facility] 10/09 07:54 Order name: IV Saline Lock; Complete Time: 08: [facility] 10/09 07:54 Order name: Labs collected and sent; Complete Time: 08: [facility] 10/09 07:54 Order name: O2 Per Protocol; Complete Time: 08: [facility] 10/09 07:54 Order name: O2 Sat Monitoring; Complete Time: 08: [facility] EC:58 Rate is 67 beats/min. Rhythm is regular. QRS [place] is Normal. [place] interval is normal. QRS thomas interval is normal. QT interval is prolonged at 477 msec. No Q waves. T waves are Normal. No ST changes noted. Clinical impression: NSR w/ Non-specific ST/T Changes, Abnormal EKG without significant change, and No evidence of ischemia. Interpreted by me. Reviewed by me. Administered Medications: 08:27 Drug: Ondansetron IVP 4 mg IVP once; over 2 minutes Route: IVP; Site: left upper arm; aa5 10:36 Follow up: Response: No adverse reaction mb9 08:28 Drug: NS 0.9% IV 500 ml IV at bolus once Route: IV; Rate: bolus; Site: left upper arm; aa5 10:36 Follow up: Response: No adverse reaction; IV Status: Completed infusion mb9 08:31 Drug: morphine IVP or IV 2 mg IVP once over 4 mins Route: IVP; Infused Over: 4 mins; aa5 Site: left upper arm; 10:36 Follow up: Response: No adverse reaction mb9 08:31 Drug: morphine IVP or IV 2 mg IVP once over 4 mins Route: IVP; Infused Over: 4 mins; aa5 Site: left upper arm; 10:36 Follow up: Response: No adverse reaction mb9 10:12 Drug: Famotidine IVP 20 mg IVP once; dilute with 10 mL 0.9% NaCl; give over 2 minutes mb9 Route: IVP; Site: left upper arm; 10:36 Follow up: Response: No adverse reaction mb9 10:13 Not Given (Patient Refused): ns 0.9% 1000 ml IV at 125 ml/hr continuous mb9 10:30 Drug: metroNIDAZOLE IVPB 500 mg 100 ml IVPB at 200 ml/hr once over 30 mins Volume: 100 mb9 ml; Route: IVPB; Rate: 200 ml/hr; Infused Over: 30 mins; Site: left upper arm; 11:10 Follow up: Response: No adverse reaction; IV Status: Completed infusion mb9 10:30 Drug: morphine IVP or IV 4 mg IVP once over 4 mins Route: IVP; Infused Over: 4 mins; mb9 Site: left upper arm; 10:35 Drug: NS 0.9% IV 1000 ml IV at 125 ml/hr continuous Route: IV; Rate: 125 ml/hr; Site: mb9 left upper arm; 11:10 Drug: Ciprofloxacin IVPB 400 mg 200 ml IVPB once over 60 mins Volume: 200 ml; Route: mb9 IVPB; Infused Over: 60 mins; Site: left upper arm; Disposition Summary: 10/10/23 10:23 Hospitalization Ordered Notes: Hospitalization Status: Inpatient Admission thomas Provider: Brandon Shin cha [facility] thomas Condition: Stable thomas Problem: new thomas Symptoms: have improved thomas Bed/Room Type: Standard thomas Room Assignment: 220(10/10/23 10:54) bd Diagnosis - Abdominal pain, Generalized thomas - Vomiting thomas - Other and unspecified intestinal obstruction - Moderate SBO, Mechanial(10/10/23 thomas 10:24) Forms: - Medication Reconciliation Form thomas - SBAR form thomas - Leadership Thank You Letter thomas Signatures: Dispatcher [employer] EDMS Heydi Caldera Corey, MD MD cha Calderon, Audri, RN RN aa5 Jessie Cristina RN RN mb9 Corrections: (The following items were deleted from the chart) 07:55 07:55 Chest Single View+[email or web address] ordered. EDMS EDMS 10:24 10:23 Other and unspecified intestinal obstruction - Moderate SBO thomas thomas 10:54 10:23 thomas bd
--- NOTE | 2023-10-10 10:24 | ER ---
Nurse's Notes [facility] Name: Marjan Kolb Age: 68 yrs Sex: Female : 1955 Arrival Date: 10/10/2023 Time: 07:50 Bed 15 Private MD: Diagnosis: Abdominal pain, Generalized;Other and unspecified intestinal obstruction-Moderate SBO, Mechanial;Vomiting Presentation: 10/09 07:53 Chief complaint: EMS states: abdominal pain, nausea and vomiting x 2 days. Pt was aa5 actively vomiting bile at scene arrival per EMS. Coronavirus screen: vomiting. Ebola Screen: Patient denies travel to an Ebola-affected area in the 21 days before illness onset. Initial Sepsis Screen: Does the patient meet any 2 criteria? No. Patient's initial sepsis screen is negative. Does the patient have a suspected source of infection? No. Patient's initial sepsis screen is negative. Risk Assessment: Do you want to hurt yourself or someone else? Patient reports no desire to harm self or others. Onset of symptoms was September 2023. 07:53 Acuity: BLAYNE 3 aa5 07:53 Method Of Arrival: EMS: [facility] aa5 07:53 Care prior to arrival: Medication(s) given: zofran 4 mg IM and Toradol 15 mg IM. aa5 Historical: - Allergies: 07:53 Azithromycin; aa5 07:53 Bactrim; aa5 07:53 butorphanol; aa5 07:53 Fentanyl; aa5 07:53 Reglan; aa5 07:53 Sulfa (Sulfonamide Antibiotics); aa5 07:53 TRIMETHOPRIM; aa5 - PMHx: 07:53 angina pectoris; Anxiety; Atrial fibrillation; Bipolar disorder; COPD (Unknown); aa5 esophageal varicies; Hepatitis; HIV positive; Hypertensive disorder; Migraine; panic attack; - PSHx: 07:53 Appendectomy; Cholecystectomy; aa5 - Immunization history:: Adult Immunizations unknown. - Infectious Disease History:: Denies. - Social history:: Smoking status: Patient/guardian denies using tobacco. Screenin:53 [facility] ED Fall Risk Assessment (Adult) History of falling in the last 3 months, aa5 including since admission No falls in past 3 months (0 pts) Confusion or Disorientation No (0 pts) Intoxicated or Sedated No (0 pts) Impaired Gait No (0 pts) Mobility Assist Device Used No (0 pt) Altered Elimination No (0 pt) Score/Fall Risk Level 0 - 2 = Low Risk Oriented to surroundings, Maintained a safe environment, Educated pt \T\ family on fall prevention, incl call for assistance when getting out of bed. Abuse screen: Denies threats or abuse. Nutritional screening: No deficits noted. Tuberculosis screening: No symptoms or risk factors identified. Assessment: 07:53 General: Appears uncomfortable, Behavior is calm, cooperative. Pain: Complains of pain aa5 in right upper quadrant, left upper quadrant, right lower quadrant and left lower quadrant Pain currently is 10 out of 10 on a pain scale. Quality of pain is described as sharp, Pain began 2-3 days ago. Is intermittent. Neuro: Level of Consciousness is awake, alert, obeys commands, Oriented to person, place, time, situation. Cardiovascular: Patient's skin is warm and dry. Respiratory: Airway is patent Respiratory effort is even, unlabored, Respiratory pattern is regular, symmetrical. GI: Abdomen is round Bowel sounds present X 4 quads. Abd is soft X 4 quads Abdomen is tender to palpation X 4 quads. Reports nausea, vomiting. : No signs and/or symptoms were reported regarding the genitourinary system. EENT: No signs and/or symptoms were reported regarding the EENT system. Derm: Skin is pink, warm \T\ dry. Musculoskeletal: Range of motion: intact in all extremities. 08:00 Reassessment: Pt vomited bile, approximately 50cc. . aa5 08:33 Reassessment: Pt to CT via stretcher . aa5 08:45 Reassessment: Patient is alert, oriented x 3, equal unlabored respirations, skin aa5 warm/dry/pink. appears more comfortable. . 09:45 Reassessment: Patient states feeling better. Patient states symptoms have improved. aa5 Neuro: Level of Consciousness is awake, alert, obeys commands, Oriented to person, place, time, situation. Respiratory: Airway is patent Respiratory effort is even, unlabored, Respiratory pattern is regular, symmetrical. Derm: Skin is pink, warm \T\ dry. 10:36 Reassessment: No changes from previously documented assessment. Patient and/or family mb9 updated on plan of care and expected duration. Pain level reassessed. Patient is alert, oriented x 3, equal unlabored respirations, skin warm/dry/pink. Vital Signs: 07:53 BP 190 / 104; Pulse 78; Resp 18 S; Temp 97.8(TE); Pulse Ox 96% on R/A; Pain 10/10; aa5 09:00 BP 172 / 90; Pulse 66; Resp 16 S; Pulse Ox 93% on R/A; aa5 07:53 Pain Scale: Adult aa5 ED Course: 07:51 Patient arrived in ED. iw 07:52 Lindsay Schulz, ASHLEY is Primary Nurse. aa5 07:53 Justus Kolb MD is Attending Physician. thomas 07:53 Arm band placed on. aa5 07:53 Patient has correct armband on for positive identification. Placed in gown. Bed in low aa5 position. Call light in reach. Side rails up X2. 07:54 Triage completed. aa5 08:15 Initial lab(s) drawn, by ne, sent to lab. Inserted saline lock: 24 gauge in left upper aa5 arm, using aseptic technique. Blood collected. 08:17 COVID swab sent to lab. Flu and/or RSV swab sent to lab. aa5 08:30 EKG done, by ED staff, reviewed by Justus Kolb MD. aa5 08:37 CT Chest Abdomen Pelvis W/O Contrast In Process Unspecified. EDMS 08:43 XRAY Chest (1 view) In Process Unspecified. EDMS 10:00 Patient requests food. Patient requests liquids. Patient requests pain medication. mb9 10:00 Report given to Jessie Edward RN. aa5 10:00 Provided Education on: press call light if needing anything. mb9 10:22 Brandon Shin is Hospitalizing Provider. [facility] 11:22 No provider procedures requiring assistance completed. Patient admitted, IV remains in mb9 place. Administered Medications: 08:27 Drug: Ondansetron IVP 4 mg IVP once; over 2 minutes Route: IVP; Site: left upper arm; aa5 10:36 Follow up: Response: No adverse reaction mb9 08:28 Drug: NS 0.9% IV 500 ml IV at bolus once Route: IV; Rate: bolus; Site: left upper arm; aa5 10:36 Follow up: Response: No adverse reaction; IV Status: Completed infusion mb9 08:31 Drug: morphine IVP or IV 2 mg IVP once over 4 mins Route: IVP; Infused Over: 4 mins; aa5 Site: left upper arm; 10:36 Follow up: Response: No adverse reaction mb9 08:31 Drug: morphine IVP or IV 2 mg IVP once over 4 mins Route: IVP; Infused Over: 4 mins; aa5 Site: left upper arm; 10:36 Follow up: Response: No adverse reaction mb9 10:12 Drug: Famotidine IVP 20 mg IVP once; dilute with 10 mL 0.9% NaCl; give over 2 minutes mb9 Route: IVP; Site: left upper arm; 10:36 Follow up: Response: No adverse reaction mb9 10:13 Not Given (Patient Refused): ns 0.9% 1000 ml IV at 125 ml/hr continuous mb9 10:30 Drug: metroNIDAZOLE IVPB 500 mg 100 ml IVPB at 200 ml/hr once over 30 mins Volume: 100 mb9 ml; Route: IVPB; Rate: 200 ml/hr; Infused Over: 30 mins; Site: left upper arm; 11:10 Follow up: Response: No adverse reaction; IV Status: Completed infusion mb9 10:30 Drug: morphine IVP or IV 4 mg IVP once over 4 mins Route: IVP; Infused Over: 4 mins; mb9 Site: left upper arm; 10:35 Drug: NS 0.9% IV 1000 ml IV at 125 ml/hr continuous Route: IV; Rate: 125 ml/hr; Site: mb9 left upper arm; 11:10 Drug: Ciprofloxacin IVPB 400 mg 200 ml IVPB once over 60 mins Volume: 200 ml; Route: mb9 IVPB; Infused Over: 60 mins; Site: left upper arm; Medication: 08:48 VIS not applicable for this client. aa5 Outcome: 10:23 Decision to Hospitalize by Provider. thomas 11:23 Admitted to Med/surg accompanied by tech, via stretcher, room 220, mb9 11:23 Condition: stable 11:23 Instructed on the need for admit, 11:47 Patient left the ED. mb9 Signatures: Dispatcher [employer] EDJustus Perrin MD MD cha Williams, Irene, RN RN iw Lindsay Schulz RN RN aa5 Jessie Cristina RN RN mb9 Roger Norton RN RN rs5 Corrections: (The following items were deleted from the chart) 08:42 07:52 Chief complaint: rs5 aa5 10:12 10:12 NS 0.9% IV 1000 ml IV at 125 ml/hr in left upper arm mb9 mb9
[2023-10-10] MEDS ORDERED: METRONIDAZOLE 500mg IVPB 500 MG/100 ML BAG IV ONE (10:28)
[2023-10-10] MEDS ORDERED: NA CHLORIDE 0.9% 1,000 ML ONE (10:28)
[2023-10-10] MEDS ORDERED: CIPROFLOXACIN 400mg IV 400 MG/200 ML BAG IV ONE (10:28)
--- NOTE | 2023-10-10 10:56 | P.HP ---
Certification for Inpatient Patient admitted to: Inpatient With expected LOS: >2 Midnights Patient will require the following post-hospital care: None Practitioner: I am a practitioner with admitting privileges, knowledge of patient current condition, hospital course, and medical plan of care. Services: Services provided to patient in accordance with Admission requirements found in Title 42 Section 412.3 of the Code of Federal Regulations Patient History Date of Service: 10/10/23 Reason for admission: SBO History of Present Illness: 67-year-old female with history of HIV, hypertension, atrial fibrillation status post Watchman procedure, chronic diastolic just heart failure, presented to the emergency room with abdominal pain, nausea and vomiting for the last 2 days. She reports her last bowel movement was this morning although it was small and hard, she has been dealing with constipation for the last 1 month or so but still having small daily bowel movements. She was evaluated in the emergency department labs are significant for glucose [address] abdomen pelvis was performed which revealed moderate mechanical small bowel obstruction no free air or abscess, findings suspicious for underlying pulmonary arterial hypertension. ED physician spoke with general surgery who will consult for small bowel obstruction, patient has a history of appendectomy, cholecystectomy and hernia repairs x 2. She denies history of bowel obstruction, is still passing gas today did have a small bowel movement this morning. Allergies fentanyl Allergy (Severe, Verified 07/20/22 08:30) Hives adhesive tape Allergy (Verified 07/20/22 08:30) Rash butorphanol tartrate [From Stadol] Allergy (Verified 07/20/22 08:30) confusion metoclopramide HCl [From Reglan] Allergy (Verified 07/20/22 08:30) Shortness of breath sulfamethoxazole [From Bactrim] Allergy (Verified 07/20/22 08:30) Hives/Rash trimethoprim [From Bactrim] Allergy (Verified 07/20/22 08:30) Hives/Rash Bactrim DS Allergy (Intermediate, Uncoded 07/20/22 08:30) Nausea/Vomiting Home Medications: Omeprazole 40 mg PO DAILY 08/10/23 Sertraline [Zoloft*] 100 mg PO DAILY 08/10/23 Trazodone [Desyrel*] 50 mg PO BEDTIME 08/10/23 Vericiguat [Verquvo] 10 mg PO DAILY 03/20/24 Albuterol Inhaler [Ventolin Inhaler*] 2 puff IH Q6H PRN 30 Days #1 inh 08/11/23 Amlodipine [Norvasc*] 10 mg PO DAILY 30 Days #30 tab 08/11/23 Amlodipine [Norvasc] 10 mg PO DAILY 30 Days #30 tab 08/11/23 Buspirone HCl 30 mg PO BID 08/11/23 Hydralazine [Apresoline*] 50 mg PO TID PRN 30 Days #30 tab 08/11/23 Metoprolol Tartrate [Lopressor] 100 mg PO BID 30 Days #60 mg 08/11/23 Mometasone/Formoterol [Dulera 200 Mcg/5 Mcg Inhaler] 2 puff IH BID 30 Days #1 inhaler 08/11/23 Spironolactone [Aldactone*] 25 mg PO BID 30 Days #60 tab 08/11/23 Valsartan [Diovan*] 160 mg PO DAILY tab 08/11/23 Valsartan/Hydrochlorothiazide [Valsartan-Hctz 160-12.5 mg Tab] 1 each PO 30 MIN BEFORE HS #30 mg 08/11/23 - Past Medical/Surgical History Diabetic: No -: HIV- viral load currently undectable -: CAD -: Bipolar disorder -: Hypertension -: COPD on home O2 @ 2L -: Tobacco abuse -: former Alcohol abuse -: Anemia of chronic disease -: Hyperlipidemia -: GERD with hiatal hernia -: Atrial fibrillation-paroxysmal S/P Watchman procedure -: Chronic diastolic CHF -: Appendectomy Watchman procedure, -: Cholecystectomy -: left and right shoulder rotator cuff repair -: Right foot repair -: Right shoulder replacement -: right wrist -: hiatal hernia repair february 2021 -: right wrist Psychosocial/ Personal History: She lives at home. She is newly . - Family History Father -: Heart disease, Hypertension, Lung disease, GI disease, Stroke, Cancer, Liver disease, Kidney disease Notes: Colon cancer Mother -: Hypertension, Lung disease, GI disease, Blood disorders, Other (see notes) Notes: Epilepsy, chronic pain, leukemia - Social History Alcohol use: No CD- Drugs: No Caffeine use: No Place of Residence: Home Review of Systems 10-point ROS is otherwise unremarkable Gastrointestinal: Nausea, Vomiting, Abdominal Pain Physical Examination - Physical Exam General: Alert, In no apparent distress, Oriented x3 HEENT: Atraumatic, PERRLA Neck: Supple, 2+ carotid pulse no bruit, No LAD Respiratory: Clear to auscultation bilaterally, Normal air movement Cardiovascular: Regular rate/rhythm, Normal S1 S2 Gastrointestinal: Normal bowel sounds, Tenderness (Mild upper abdominal tenderness) Musculoskeletal: No tenderness Integumentary: No rashes Neurological: Normal speech, Normal strength at 5/5 x4 extr, Normal tone, Normal affect - Studies Laboratory Data (last 24 hrs) 10/10/23 10/10/23 10/10/23 08:15 08:15 08:15 WBC 8.10 Hgb 12.9 D Hct 39.4 Plt Count 149 L PT 11.2 INR 1.02 Sodium 136 D Potassium 3.9 BUN 22 H Creatinine 1.05 H Glucose 128 H Magnesium 2.5 H Total Bilirubin 0.6 AST 24 ALT 30 Alkaline Phosphatase 86 Lipase 29 Microbiology Data (last 24 hrs): 10/10/23 08:17 Nasopharnyx Influenza Type A Antigen Screen - Final 10/10/23 08:17 Nasopharnyx Influenza Type B Antigen Screen - Final Assessment and Plan - Plan Assessment: Mechanical small bowel obstruction Paroxysmal atrial fibrillation status post Watchman procedure Chronic diastolic congestive heart failure HIV COPD on chronic home O2 History of CAD Hyperlipidemia Hypertension GERD Plan: Mechanical small bowel obstruction N.p.o., IVF, as needed pain medications and antiemetics Empiric antibiotics General surgery consult Daily KUB Last bowel movement morning of 10/09 although small/hard +flatus Paroxysmal atrial fibrillation status post Watchman procedure No longer on any anticoagulation, denies taking aspirin or Plavix currently Chronic diastolic congestive heart failure Does not appear grossly overloaded, continue IV fluids Monitor volume status closely HIV Compliant with antiretrovirals at home, continuing tolerating p.o. COPD on chronic home O2 As needed nebulizer treatments History of CAD Hyperlipidemia Hypertension GERD Continue home medications once tolerating p.o. DVT PPX: Lovenox Code status: Full Discharge Plan: Home Plan to discharge in: 72 Hours - Advance Directives Does patient have a Living Will: No Does patient have a Durable POA for Healthcare: No - Code Status/Comfort Care Code Status Assessed: Yes (Full code) Critical Care: No Time Spent Managing Pts Care (In Minutes): 70
[2023-10-10] MEDS ORDERED: SODIUM CHLORIDE 0.9% 10ML INJ IV PRN (12:59)
[2023-10-10] MEDS: HYDRALAZINE HCL 20 MG/ML VIAL IV PRN (13:26)
[2023-10-10] MEDS: NA CHLORIDE 0.9% 1,000 ML IV SCH (13:27)
[2023-10-10] MEDS ORDERED: ALBUTEROL INHALER 200 PUFF/6.7 GM IH PRN (14:31)
[2023-10-10] MEDS: MORPHINE 4 MG/ML SYR IV PRN (15:07)
[2023-10-10] MEDS: METRONIDAZOLE 500mg IVPB 500 MG/100 ML BAG IV SCH (17:15)
[2023-10-10] MEDS: CIPROFLOXACIN 400mg IV 400 MG/200 ML BAG IV SCH (20:04)
[2023-10-10] MEDS: DULERA 200/5 (MOMETASONE/FORMOTEROL) INHALER IH SCH (21:00)
[2023-10-11 04:35] LABS: Absolute Lymphocytes (CBC) 0.6 K/uL (0.7-4.9); Absolute Monocytes 0.3 K/uL (0.1-1.3); Basophils % 0.3 % (0-1.3); Eosinophils % 1.5 % (0-4.4); Hemoglobin 10.6 g/dL (12.0-15.0); Lymphocytes % 20.8 % (15.3-44.8); MCH 28.6 pg (27.0-35.0); MCHC 33.2 g/dL (32.0-36.0); MCV 86.2 fL (80-100); Neutrophils % 66.4 % (41.7-73.7); Platelets 112 thou/uL (152-406); RBC Red Blood Cell Count 3.71 M/uL (3.86-4.86); Red Cell Distribution Width 18.4 % (12.1-15.2)
[2023-10-11 04:42] LABS: Anion Gap 6.5 mEq/L (5.0-15.0); Potassium 3.5 mEq/L (3.5-5.1)
[2023-10-11] MEDS: KCL 20 MEQ/100 mL IVPB 20 MEQ/100 ML BAG IV SCH (07:49)
[2023-10-11] MEDS: ENOXAPARIN 40 MG/0.4 ML SQ SCH (08:42)
[2023-10-11] MEDS: PANTOPRAZOLE 40 MG INJ IVP SCH (08:42)
--- NOTE | 2023-10-11 08:46 | P.PN ---
Date of Service: 10/11/23 Subjective: Still with epigastric abdominal pain No bowel movement since yesterday ROS: 10 point ROS as noted above, otherwise negative Physical exam GEN: Alert, oriented, NAD HEENT: Normal conjunctiva, sclera anicteric CV: Regular rate and rhythm, no edema Pulm: Nonlabored respirations on room air ABD: Soft, mild epigastric abdominal tenderness, nondistended MSK: No joint tenderness Integumentary: No rashes Neuro: Normal speech, normal affect Vitals reviewed Assessment: Mechanical small bowel obstruction Paroxysmal atrial fibrillation status post Watchman procedure Chronic diastolic congestive heart failure HIV COPD on chronic home O2 History of CAD Hyperlipidemia Hypertension GERD Plan: Mechanical small bowel obstruction N.p.o., IVF, as needed pain medications and antiemetics Empiric antibiotics General surgery consult-awaiting recommendations KUB pending Last bowel movement morning of 10/09 although small/hard +flatus Paroxysmal atrial fibrillation status post Watchman procedure No longer on any anticoagulation, denies taking aspirin or Plavix currently Chronic diastolic congestive heart failure Does not appear grossly overloaded, continue IV fluids Monitor volume status closely HIV Compliant with antiretrovirals at home, continuing tolerating p.o. COPD on chronic home O2 As needed nebulizer treatments History of CAD Hyperlipidemia Hypertension GERD Continue home medications once tolerating p.o. DVT PPX: Lovenox Code status: Full Discharge Plan: Home Dispo: 2 to 3 days Time Spent Managing Pts Care (In Minutes): 35
--- NOTE | 2023-10-11 11:03 | RAD REPORT ---
EXAM DESCRIPTION: RAD - Abdomen 1 View (KUB) - 10/11/2023 10:52 am CLINICAL HISTORY: Abdomen pain FINDINGS: The small bowel has diminished since the prior exam. There are only a few mildly dilated l oops of small bowel now. Air and stool are present throughout colon. This is compatible with significant improvement in the small bowel obstruction
[2023-10-11] MEDS ORDERED: HYDRALAZINE HCL 25 MG TABLET PO PRN (11:27)
[2023-10-11] MEDS: HYDRALAZINE HCL 20 MG/ML VIAL IV ONE (15:32)
[2023-10-11] MEDS: METOPROLOL TAR 50 MG TAB PO SCH (17:09)
[2023-10-11] MEDS: SPIRONOLACTONE 25 MG TABLET PO SCH (17:10)
[2023-10-11] MEDS: hydroCHLOROthiazide 12.5 MG CAP PO SCH (19:40)
[2023-10-11] MEDS: VALSARTAN 160 MG TAB PO SCH (19:41)
[2023-10-11] MEDS ORDERED: HOME MED 1 EA UNK (Valsartan/Hydrochlorothiazide [Valsartan-Hctz 160-12.5 Mg Tab] 1 EACH T PO SCH (20:30)
[2023-10-11] MEDS ORDERED: HOME MED 1 EA UNK (Metoprolol Tartrate [Lopressor] 100 MG Tablet) PO SCH (21:00)
[2023-10-11] MEDS ORDERED: SPIRONOLACTONE 25 MG TABLET PO SCH (21:00)
[2023-10-11] MEDS ORDERED: METOPROLOL TAR 50 MG TAB PO SCH (21:00)
[2023-10-11] MEDS: ONDANSETRON 4 MG/2 ML VIAL IV PRN (21:09)
[2023-10-11] MEDS: BUSPIRONE HCL 15 MG TABLET PO SCH (21:11)
[2023-10-11] MEDS: TRAZODONE 50 MG TABLET PO SCH (21:11)
[2023-10-12] MEDS: LORAZEPAM 0.5 MG TABLET PO PRN (00:17)
[2023-10-12 03:52] LABS: Absolute Eosinophils 0.1 K/uL (0-0.5); Absolute Lymphocytes (CBC) 0.7 K/uL (0.7-4.9); Absolute Monocytes 0.4 K/uL (0.1-1.3); Absolute Neutrophil 2.1 K/uL (1.8-8.0); Basophils % 0.3 % (0-1.3); Eosinophils % 1.7 % (0-4.4); Hematocrit 32.9 % (36.0-45.0); Hemoglobin 10.6 g/dL (12.0-15.0); Lymphocytes % 20.1 % (15.3-44.8); MCH 27.6 pg (27.0-35.0); MCHC 32.2 g/dL (32.0-36.0); MCV 85.8 fL (80-100); MPV 7.4 fL (7.6-11.3); Monocytes % 13.2 % (3.3-12.3); Neutrophils % 64.7 % (41.7-73.7); Nucleated Red Blood Cells % 0.1 % (0-0); Platelets 121 thou/uL (152-406); RBC Red Blood Cell Count 3.84 M/uL (3.86-4.86); Red Cell Distribution Width 18.5 % (12.1-15.2)
[2023-10-12 03:56] LABS: Anion Gap 7.6 mEq/L (5.0-15.0); Potassium 3.6 mEq/L (3.5-5.1)
[2023-10-12] MEDS: POTASSIUM 25 MEQ EFFERV TAB PO ONE (07:35)
[2023-10-12] MEDS: PANTOPRAZOLE 40MG TABLET PO SCH (07:35)
[2023-10-12] MEDS ORDERED: AMLODIPINE 10 MG TAB PO SCH (09:00)
[2023-10-12] MEDS: VERICIGUAT PO SCH (09:00)
[2023-10-12] MEDS ORDERED: HOME MED 1 EA UNK (Omeprazole [Omeprazole] 20 MG Tablet.Dr) PO SCH (09:00)
[2023-10-12] MEDS ORDERED: VALSARTAN 160 MG TAB PO SCH (09:00)
[2023-10-12] MEDS: SERTRALINE HCL 100 MG TAB PO SCH (09:48)
[2023-10-12] MEDS: clonazePAM 0.5 MG TAB PO PRN (10:11)
--- NOTE | 2023-10-12 14:06 | P.PN ---
Date of Service: 10/12/23 Subjective: Still with epigastric abdominal pain No BM yet Mostly tolerating diet, no nausea or vomiting ROS: 10 point ROS as noted above, otherwise negative Physical exam GEN: Alert, oriented, NAD HEENT: Normal conjunctiva, sclera anicteric CV: Regular rate and rhythm, no edema Pulm: Nonlabored respirations on room air ABD: Soft, mild epigastric abdominal tenderness, nondistended MSK: No joint tenderness Integumentary: No rashes Neuro: Normal speech, normal affect Vitals reviewed Assessment: Mechanical small bowel obstruction Paroxysmal atrial fibrillation status post Watchman procedure Chronic diastolic congestive heart failure HIV COPD on chronic home O2 History of CAD Hyperlipidemia Hypertension GERD Plan: Mechanical small bowel obstruction N.p.o., IVF, as needed pain medications and antiemetics DC antibiotics General surgery following KUB tomorrow morning Last bowel movement morning of 10/09 although small/hard +flatus Paroxysmal atrial fibrillation status post Watchman procedure No longer on any anticoagulation, denies taking aspirin or Plavix currently Chronic diastolic congestive heart failure Does not appear grossly overloaded, continue IV fluids Monitor volume status closely HIV Compliant with antiretrovirals at home, continuing tolerating p.o. COPD on chronic home O2 As needed nebulizer treatments History of CAD Hyperlipidemia Hypertension GERD Home meds continued DVT PPX: Lovenox Code status: Full Discharge Plan: Home Dispo: 1-2 days Time Spent Managing Pts Care (In Minutes): 35
[2023-10-12] MEDS: MORPHINE 4 MG/ML SYR IV ONE (14:49)
[2023-10-12] MEDS: AMLODIPINE 10 MG TAB PO SCH (16:06)
[2023-10-13 05:03] LABS: Absolute Eosinophils 0.1 K/uL (0-0.5); Absolute Lymphocytes (CBC) 0.6 K/uL (0.7-4.9); Absolute Monocytes 0.4 K/uL (0.1-1.3); Absolute Neutrophil 1.7 K/uL (1.8-8.0); Basophils % 0.5 % (0-1.3); Eosinophils % 1.9 % (0-4.4); Hematocrit 31.1 % (36.0-45.0); Hemoglobin 10.2 g/dL (12.0-15.0); Lymphocytes % 21.1 % (15.3-44.8); MCH 28.2 pg (27.0-35.0); MCHC 32.6 g/dL (32.0-36.0); MCV 86.5 fL (80-100); MPV 7.1 fL (7.6-11.3); Monocytes % 15.1 % (3.3-12.3); Neutrophils % 61.4 % (41.7-73.7); Nucleated Red Blood Cells % 0.1 % (0-0); Platelets 110 thou/uL (152-406); Red Cell Distribution Width 18.5 % (12.1-15.2)
[2023-10-13 05:14] LABS: Anion Gap 7.8 mEq/L (5.0-15.0); Potassium 3.8 mEq/L (3.5-5.1)
[2023-10-13 05:47] LABS: Anisocytosis 1+; Blood Morphology Comment NOTED (NOT SEEN); Microcytosis 1+; Platelet Estimate ADEQ; White Blood Cell Scan OK (OK)
--- NOTE | 2023-10-13 07:38 | RAD REPORT ---
EXAM DESCRIPTION: RAD - Abdomen 1 View (KUB) - 10/13/2023 6:27 am CLINICAL HISTORY: eval bowel gas Pain COMPARISON: Abdomen 1 View (KUB) dated 10/11/2023; Chest Single View dated 10/10/2023; Chest Single Vi ew dated 10/09/2023; Chest Abd Pelvis Wo Con dated 10/10/2023 FINDINGS: Mildly dilated small bowel loop is seen in the central abdomen. Gas is seen in the colon a s well. Cholecystectomy clips. Mild levoscoliosis. No free air. IMPRESSION: Mildly prominent small bowel loops in central abdomen, otherwise bowel gas pattern is wi thin normal range.
[2023-10-13] MEDS: POTASSIUM 25 MEQ EFFERV TAB PO ONE (08:17)
--- NOTE | 2023-10-13 14:47 | P.PN ---
Date of Service: 10/13/23 Subjective: Still with epigastric abdominal pain + flatus had small amt diarrhea this morning Reported continued/worsening abdominal pain ROS: 10 point ROS as noted above, otherwise negative Physical exam GEN: Alert, oriented, NAD HEENT: Normal conjunctiva, sclera anicteric CV: Regular rate and rhythm, no edema Pulm: Nonlabored respirations on room air ABD: Soft, mild epigastric abdominal tenderness, nondistended MSK: No joint tenderness Integumentary: No rashes Neuro: Normal speech, normal affect Vitals reviewed Assessment: Mechanical small bowel obstruction Paroxysmal atrial fibrillation status post Watchman procedure Chronic diastolic congestive heart failure HIV COPD on chronic home O2 History of CAD Hyperlipidemia Hypertension GERD Plan: Mechanical small bowel obstruction Reported continued/worsening abdominal pain Initially made to be n.p.o. during rounds General surgery was subsequently reassessed and recommends full liquids this evening If tolerating diet possible discharge in the morning KUB without signs of obstruction x 2 Positive flatus, had small amount of diarrhea 10/12 Paroxysmal atrial fibrillation status post Watchman procedure No longer on any anticoagulation, denies taking aspirin or Plavix currently Chronic diastolic congestive heart failure Does not appear grossly overloaded, continue IV fluids Monitor volume status closely HIV Compliant with antiretrovirals at home, continued COPD on chronic home O2 As needed nebulizer treatments History of CAD Hyperlipidemia Hypertension GERD Home meds continued DVT PPX: Lovenox Code status: Full Discharge Plan: Home Dispo: 1-2 days Time Spent Managing Pts Care (In Minutes): 35
[2023-10-13 14:55] VITALS: BMI 31.0
--- NOTE | 2023-10-13 15:17 | EKG ---
Test Date: 2023-10-10 Test Time: 08:29:30 Billposter: CAMMY MEASUREMENT RESULTS: Intervals: Rate: 67 RI: 196 QRSD: 88 QT: 452 QTc: 477 [place]: P: 119 RI: 196 QRS: 22 T: 115 INTERPRETIVE STATEMENTS: Normal sinus rhythm ST & T wave abnormality, consider lateral ischemia Prolonged QT Abnormal ECG Compared to ECG 10/09/2023 18:55:55 Possible ischemia now present Sinus bradycardia no longer present ST (T wave) deviation still present Electronically Signed On 10-13-23 15:03:15 CDT by Mike Lund
[2023-10-13] MEDS: HYDROMORPHONE HCL 1 MG/ML INJ IV ONE (18:49)
[2023-10-14 08:10] LABS: Hematocrit 32.6 % (36.0-45.0); Hemoglobin 10.7 g/dL (12.0-15.0); MCH 28.2 pg (27.0-35.0); MCHC 32.7 g/dL (32.0-36.0); MCV 86.4 fL (80-100); MPV 7.7 fL (7.6-11.3); Platelets 106 thou/uL (152-406); RBC Red Blood Cell Count 3.78 M/uL (3.86-4.86); Red Cell Distribution Width 18.1 % (12.1-15.2)
[2023-10-14 09:41] LABS: Blood Morphology Comment NOT SEEN (NOT SEEN); Differential Total Cells Count 100; Eosinophils 3 % (0-3); Lymphocytes 22 % (15-42); Monocytes 13 % (0-10); Platelet Estimate DECR; Segmented Neutrophils 62 % (40-80)
--- NOTE | 2023-10-14 13:08 | P.PN ---
Subjective Date of Service: 10/12/23 Chief Complaint: SBO Subjective: Improving (Passing more gas, no BM, ambulatory, pain improved) Physical Examination - Vital Signs Temperature: 97.9 F Blood Pressure: 172/84 Pulse: 91 Respirations: 15 Pulse Ox (%): 89 - Physical Exam General: Alert, In no apparent distress, Oriented x3, Cooperative Respiratory: Clear to auscultation bilaterally, Normal air movement Gastrointestinal: Other (soft, mild periumbilical TTP only to deep palpation, ND, no rebound, no guarding, no peritonitis) Musculoskeletal: No clubbing, No swelling, No contractures, No erythema, No tenderness, No warmth Integumentary: No rashes Neurological: Normal gait, Normal speech Assessment And Plan - Current Problems (Diagnosis) (1) Partial bowel obstruction Current Visit: Yes Status: Acute Plan: - Serial Exams - IV hydration - clear liquid diet - pain control - ambulate with assist - continue medical management per primary team
--- NOTE | 2023-10-14 13:10 | P.PN ---
Subjective Date of Service: 10/13/23 Chief Complaint: SBO Subjective: Improving (+ diarrhea, volouous, improved pain, no nausea, emesis, no other issues) Physical Examination - Vital Signs Temperature: 97.9 F Blood Pressure: 172/84 Pulse: 91 Respirations: 15 Pulse Ox (%): 89 - Physical Exam General: Alert, In no apparent distress, Oriented x3, Cooperative Respiratory: Clear to auscultation bilaterally, Normal air movement Gastrointestinal: Other (soft, mild periumbilical TTP only to deep palpation, ND, no rebound, no guarding, no peritonitis) Integumentary: No rashes, No breakdown Neurological: Normal speech Assessment And Plan - Current Problems (Diagnosis) (1) Partial bowel obstruction Current Visit: Yes Status: Acute Plan: - Serial Exams - IV hydration - clear liquid diet - pain control - ambulate with assist - continue medical management per primary team
--- NOTE | 2023-10-14 13:12 | P.PN ---
Subjective Date of Service: 10/14/23 Chief Complaint: SBO Subjective: Improving (continued bowel movements, tolerating diet, ambutory, pain improved) Physical Examination - Vital Signs Temperature: 97.9 F Blood Pressure: 172/84 Pulse: 91 Respirations: 15 Pulse Ox (%): 89 - Physical Exam General: Alert, In no apparent distress, Oriented x3, Cooperative Respiratory: Clear to auscultation bilaterally Gastrointestinal: Other (soft, mild improved periumbilical TTP only to deep palpation, ND, no rebound, no guarding, no peritonitis) Assessment And Plan - Current Problems (Diagnosis) (1) Partial bowel obstruction Current Visit: Yes Status: Acute Plan: - Serial Exams - IV hydration - advance diet, if tolerated, DC home from surgical standpoint - pain control - ambulate with assist - continue medical management per primary team - pain essentially resolved, patient smiling during exam, no other issues
--- NOTE | 2023-10-14 16:00 | RAD REPORT ---
EXAM DESCRIPTION: CT - Abdomen Pelvis Wo Contrast - 10/14/2023 3:01 pm CLINICAL HISTORY: Abdominal pain COMPARISON: May 2023 TECHNIQUE: Computed axial tomography of the abdomen and pelvis was obtained. IV and oral contrast we re not requested. All CT scans are performed using dose optimization technique as appropriate and may include automated exposure control or mA/KV adjustment according to patient size. FINDINGS: The evaluation of solid organs, vessels and bowel is limited secondary to the lack of con trast administration. Prominent left and caudate lobes the liver may indicate chronic disease. Cholecystectomy Borderline splenomegaly. It is without significant change The pancreas and adrenals grossly normal. Bilateral renal cysts without significant change. No hydronephrosis No evidence of diverticulitis. No adnexal mass IMPRESSION: No acute abnormality is displayed.
--- NOTE | 2023-10-14 18:21 | CON ---
Date of Consultation: 10/11/2023 Brief History Of Present Illness: The patient is a 68-year-old female known to me from previous surg jon whereby I saw her several years ago for an incarcerated ventral hernia. Ultimately taken to the operating room, had a repair of her hernia successfully. At that time, she does have a longstanding history of multiple abdominal surgeries before. She presents now with a medical history also signifi cant for HIV, hypertension, atrial fibrillation, status post Watchman procedure, chronic diastolic he art failure, who came to the hospital with abdominal pain, nausea, vomiting, which occurred 2 days pr ior to her admission on 10/10/2023. She notes that she did have a bowel movement the morning she pre sented to the hospital, which is large and normal at that time. She has had similar episodes before in the past and has multiple small low-grade bowel obstructions before in the past, treated nonoperat ively. She states this feels very similar to those before in the past. During my examination, she w as admitted over the course of the evening. She felt significantly better. She was continued to pas s gas with no nausea or vomiting and her abdominal pain improved significantly by her report. Past Medical History: Significant for HIV, hypertension, atrial fibrillation, chronic diastolic hear t failure, coronary artery disease, bipolar disorder, COPD on home oxygen at 2 L, tobacco abuse, hist ory of alcoholism, anemia of chronic disease, hyperlipidemia, GERD, hiatal hernia, atrial fibrillatio n with paroxysmal features. Past Surgical History: Include an appendectomy, a Watchman procedure, cholecystectomy, left and righ t shoulder rotator cuff repairs, right foot repair, right shoulder replacement, left shoulder replace ment, right wrist surgery, hiatal hernia repair in February 2021, wrist surgery on the right, laparosc opic ventral hernia repair in 2020. Allergies: INCLUDE FENTANYL, ADHESIVE TAPE, SOTALOL, RAGLAN, BACTRIM. Home Medications: Include omeprazole, Zoloft, Desyrel, Verquvo, Ventolin inhaler, Norvasc, BuSpar/bu spirone, Alprazolam, Lopressor, Dulera, Aldactone, Diovan, valsartan/hydrochlorothiazide. Family History: Significant for hypertension, lung disease, GI disease, stroke, cancer, liver diseas e, kidney disease, colon cancer. Her mother had hypertension, lung disease, GI disease, blood disord ers, epilepsy, chronic pain, leukemia. She lives at home and is . She currently denies smoki ng, alcohol, or recreational drug use. Review of Systems: Ten-point review of systems other than HPI. She has no additional complaints. She feels significant improvement since her presentation to the ER as described above. Physical Examination: Vital Signs: At the time of examination, her blood pressure was 142/80, pulse is 53, respiratory rat e 18, temperature 97.8, SpO2 of 97% on room air. GENERAL: She is awake, alert, oriented. Psychiatric: She is appropriate and conversive, but has slow mentation. HEENT: She is otherwise normocephalic. Her sclerae are anicteric. Her mucous membranes are moist. Oropharynx is clear with poor dentition. Neck: Supple without JVD. Chest: Normal expansion and excursion. Cardiovascular: Regular rate, irregular feeling rhythm on palpation. Respiratory: Clear to auscultation bilaterally. Abdomen: Soft with mild mid midline periumbilical tenderness only to deep palpation. No rebound. N o guarding. No focal peritonitis. Well-healed surgical scars were evident. Extremities: No clubbing, cyanosis, edema. Skin: Warm and dry. Laboratory Data: Revealed a white blood cell count of 3.1, hemoglobin is 10.6, hematocrit of 32.0, p latelet count was 112. Sodium 141, potassium 3.5, chloride 111, carbon dioxide 27, BUN 29, creatinin e 0.87, glucose is 92, calcium 7.8. She had imaging performed, which included a CT of the abdomen an d pelvis on 10/10/2023, which is officially read as moderate mechanical small bowel obstruction prese nt. No free air abscess findings suspicious for underlying pulmonary arterial hypertension are evide nt. Specifically, there is multiple dilated small bowel loops in the central abdomen maximally measu ring 4.2 cm. No free air abscess and nonvisualized appendix. No pathologic lymphadenopathy. Abdome n and pelvis, no worrisome osseous findings. The main pulmonary artery appears to be enlarged measur ing up to 5 cm in transverse dimension. Suggest correlation possibly underlying pulmonary hypertensi on. She had a KUB performed just prior to my examination, which is compatible with significant impro vement of small bowel obstructive pattern. Air and stool both present throughout the colon. Assessment And Plan: This is a 68-year-old woman known to me from previous encounters, who presents with a likely recurrent partial small bowel obstruction. 1.IV fluid hydration. 2.Antibiotic coverage. 3.Serial abdominal exams. 4.I recommend starting clear liquid diet at this point very soon and see how she tolerates this as s he has continued to pass gas and have bowel function. a.Pain management. b.Medical management per primary team. I have explained the risks, benefits, and alternatives the aleshia mccoy stated plan and will proceed with non operative management at this point. However, if she has a ny signs of non reassurance, we will discuss operative management in more detail. However, I have ex plained that the risks include an exploratory laparotomy include bleeding, infection, damage to surro unding tissue, need further operative procedures, trouble in the perioperative period including but n ot limited to stroke, heart attack, blood clots in any unforeseen complications in the perioperative. The patient displayed understanding the above stated plan, agrees to proceed as indicated. SHARIF/KIRTI Voice ID: [id number] Report ID: [id number]
--- NOTE | 2023-10-14 19:17 | P.PN ---
Date of Service: 10/14/23 Subjective: Awake and sitting on the side of the bed, talking on the phone C/o worsening abdominal pain ROS: 10 point ROS as noted above, otherwise negative Physical exam GEN: AAO x3, NAD HEENT: Normal conjunctiva, sclera anicteric CV: RRR, S1 S2 present, no murmur noted Pulm: Nonlabored respirations on room air ABD: Soft and benign on palpation, mild epigastric abdominal tenderness, nondistended MSK: No joint tenderness Integumentary: No rashes Neuro: Normal speech, normal affect Vitals reviewed Assessment: Mechanical small bowel obstruction Paroxysmal atrial fibrillation status post Watchman procedure Chronic diastolic congestive heart failure HIV COPD on chronic home O2 History of CAD Hyperlipidemia Hypertension GERD Plan: Mechanical small bowel obstruction Reported continued/worsening abdominal pain Advance diet to full liquid General surgery was subsequently reassessed and recommends full liquids this evening If tolerating diet possible discharge in the morning KUB without signs of obstruction x 2 CT abdomen/pelvis reports "No acute abnormality is displayed" Positive flatus, continued diarrhea Protonix started Paroxysmal atrial fibrillation status post Watchman procedure No longer on any anticoagulation, denies taking aspirin or Plavix currently Chronic diastolic congestive heart failure Does not appear grossly overloaded, continue IV fluids Monitor volume status closely HIV Compliant with antiretrovirals at home, continued COPD on chronic home O2 As needed nebulizer treatments History of CAD Hyperlipidemia Hypertension GERD Home meds continued DVT PPX: Lovenox Code status: Full Discharge Plan: Home Dispo: Likely discharge in the a.m.
[2023-10-14] MEDS: LACTOBACILLUS/ACIDOPHILUS TAB PO SCH (20:47)
[2023-10-15 05:12] LABS: Absolute Eosinophils 0.1 K/uL (0-0.5); Absolute Lymphocytes (CBC) 0.7 K/uL (0.7-4.9); Absolute Monocytes 0.4 K/uL (0.1-1.3); Absolute Neutrophil 1.7 K/uL (1.8-8.0); Basophils % 0.6 % (0-1.3); Eosinophils % 2.4 % (0-4.4); Hemoglobin 11.2 g/dL (12.0-15.0); Lymphocytes % 23.7 % (15.3-44.8); MCH 27.9 pg (27.0-35.0); MCHC 32.1 g/dL (32.0-36.0); Monocytes % 13.4 % (3.3-12.3); Neutrophils % 59.9 % (41.7-73.7); Nucleated Red Blood Cells % 0.1 % (0-0); Platelets 132 thou/uL (152-406); RBC Red Blood Cell Count 4.02 M/uL (3.86-4.86); Red Cell Distribution Width 18.4 % (12.1-15.2)
[2023-10-15 05:27] LABS: Anion Gap 7.7 mEq/L (5.0-15.0); Magnesium 2.3 mg/dL (1.6-2.4); Phosphorus 2.8 mg/dL (2.5-4.9); Potassium 3.7 mEq/L (3.5-5.1)
[2023-10-15] MEDS: POTASSIUM CL SA 10 MEQ TAB PO ONE (09:13)
[2023-10-15 09:22] VITALS: BP 181/79
--- NOTE | 2023-10-15 09:41 | P.DS ---
Admission Date: 10/10/23 Discharge Date: 10/21/23 Disposition: ROUTINE DISCHARGE Discharge Condition: GOOD Reason for Admission: SBO Brief History of Present Illness: Diagnosis Mechanical small bowel obstruction Paroxysmal atrial fibrillation status post Watchman procedure Chronic diastolic congestive heart failure HIV COPD on chronic home O2 History of CAD Hyperlipidemia Hypertension GERD HPI 10/10/2023 Marjan Kolb is a 67-year-old female with history of HIV, hypertension, atrial fibrillation status post Watchman procedure, chronic diastolic congestive heart failure, presented to the emergency room with abdominal pain, nausea and vomiting for the last 2 days. She reports her last bowel movement was this morning although it was small and hard, she has been dealing with constipation for the last 1 month or so but still having small daily bowel movements. She was evaluated in the emergency department labs are significant for glucose [address] abdomen pelvis was performed which revealed moderate mechanical small bowel obstruction no free air or abscess, findings suspicious for underlying pulmonary arterial hypertension. ED physician spoke with general surgery who will consult for small bowel obstruction, patient has a history of appendectomy, cholecystectomy and hernia repairs x 2. She denies history of bowel obstruction, is still passing gas today did have a small bowel movement this morning. Hospital Course: Marjan Kolb is a pleasant 68-year-old female with a past medical history significant for HIV, hypertension, atrial fibrillation status post Watchman procedure, chronic diastolic congestive heart failure who was admitted to the [facility] on 10/10/2023 for abdominal pain, nausea, vomiting for 2 days. Patient presented to the hospital for abdominal pain, nausea and vomiting. She was found to have a small bowel obstruction and was admitted to the hospital. She was treated conservatively with IV fluids, empiric antibiotics and slowly advancing her diet. She has been tolerating a full liquid diet now and has had improvement in her abdominal discomfort. She is passing gas and KUB continues to show improvement. She did not require any surgical intervention and she is stable for discharge at this time. On 10/15/2023, Marjan was seen on morning rounds and deemed medically stable for discharge. Marjan was discharged with instructions to schedule follow-up appointments with PCP and Dr. Rahman. Marjan was provided prescriptions for Lactinex. The patient was given the opportunity to ask questions and reported no further questions. Furthermore, all questions were answered to the best of my ability. A copy of this discharge summary will be sent to the above providers to facilitate continuity of care. Physical exam GEN: Alert and oriented x3, NAD, comfortable HEENT: Normal conjunctiva, sclera anicteric CV: NSR with controlled rate, S1 S2 present, no murmur noted Pulm: Nonlabored respirations on room air ABD: Soft and benign on palpation, NT/ND MSK: No joint tenderness, 2+ peripheral pulses Integumentary: No rashes Neuro: Normal speech, normal affect Vital Signs/Physical Exam: Temp Pulse Resp BP Pulse Ox 97.2 F 55 16 181/79 H 92 10/15/23 04:40 10/15/23 09:12 10/15/23 04:40 10/15/23 09:12 10/15/23 04:40 Laboratory Data at Discharge: WBC 2.90 thou/uL (4.3-10.9) L 10/15/23 04:52 Hgb 11.2 g/dL (12.0-15.0) L 10/15/23 04:52 Hct 35.0 % (36.0-45.0) L 10/15/23 04:52 Plt Count 132 thou/uL (152-406) L 10/15/23 04:52 PT 11.2 SECONDS (9.5-12.5) 10/10/23 08:15 INR 1.02 10/10/23 08:15 Sodium 138 mEq/L (136-145) 10/15/23 04:52 Potassium 3.7 mEq/L (3.5-5.1) 10/15/23 04:52 BUN 7 mg/dL (7-18) 10/15/23 04:52 Creatinine 1.08 mg/dL (0.55-1.02) H 10/15/23 04:52 Glucose 115 mg/dL (74-106) H 10/15/23 04:52 Phosphorus 2.8 mg/dL (2.5-4.9) 10/15/23 04:52 Magnesium 2.3 mg/dL (1.6-2.4) 10/15/23 04:52 Total Bilirubin 0.6 mg/dL (0.2-1.0) 10/10/23 08:15 AST 24 U/L (15-37) 10/10/23 08:15 ALT 30 U/L (13-56) 10/10/23 08:15 Alkaline Phosphatase 86 U/L (45-117) 10/10/23 08:15 Lipase 29 U/L (13-75) 10/10/23 08:15 Home Medications: Omeprazole 40 mg PO DAILY 08/10/23 Sertraline [Zoloft*] 100 mg PO DAILY 08/10/23 Trazodone [Desyrel*] 50 mg PO BEDTIME 08/10/23 Vericiguat [Verquvo] 20 mg PO DAILY 08/10/23 Albuterol Inhaler [Ventolin Inhaler*] 2 puff IH Q6H PRN 30 Days #1 inh 08/11/23 Amlodipine [Norvasc*] 10 mg PO DAILY 30 Days #30 tab 08/11/23 Buspirone HCl 30 mg PO BID 08/11/23 Hydralazine [Apresoline*] 50 mg PO TID PRN 30 Days #30 tab 08/11/23 Metoprolol Tartrate [Lopressor] 100 mg PO BID 30 Days #60 mg 08/11/23 Mometasone/Formoterol [Dulera 200 Mcg/5 Mcg Inhaler] 2 puff IH BID 30 Days #1 inhaler 08/11/23 Spironolactone [Aldactone*] 25 mg PO BID 30 Days #60 tab 08/11/23 Valsartan [Diovan*] 160 mg PO DAILY tab 08/11/23 Valsartan/Hydrochlorothiazide [Valsartan-Hctz 160-12.5 mg Tab] 1 each PO 30 MIN BEFORE HS #30 mg 08/11/23 Acidophilus/Bulgaricus [Lactinex Packet] 1 each PO DAILY 5 Days #5 packet 10/15/23 New Medications: Acidophilus/Bulgaricus [Lactinex Packet] 1 each PO DAILY 5 Days #5 packet Physician Discharge Instructions: Patient presented to the hospital for abdominal pain, nausea and vomiting. She was found to have a small bowel obstruction and was admitted to the hospital. She was treated conservatively with IV fluids, empiric antibiotics and slowly advancing her diet. She has been tolerating a full liquid diet now and has had improvement in her abdominal discomfort. She is passing gas and KUB continues to show improvement. She did not require any surgical intervention and she is stable for discharge at this time. At discharge we recommend you continue your home medications as prescribed. You should advance her diet slowly starting with full liquids and advancing to soft diet over the course of the next few days. Please follow-up with your primary care doctor in 1 to 2 weeks and your biological sciences instructor for further management. New medication Lactinex one packet daily for five days Diet: full liqui Activity: Ad pricila Followup: Lele Rahman DO, DO [Primary Care Provider] - 1-2 Weeks Chance Rahman MD [ACTIVE - CAN ADMIT] - 1-2 Weeks
[2023-10-15 10:00] VITALS: TEMP 97
[2023-10-15 10:19] VITALS: O2SAT 94
== END 2023-10-15 09:45 | disposition home or self-care (01) | DRG 389 ==
LOC: ER 07:50 → 2ND 10:39
PROVIDERS: ADMIT Internal Medicine; ATTEND Hospitalist
DX: K56.600 Partial intestinal obstruction, unspecified as to cause (principal); I50.32 Chronic diastolic (congestive) heart failure; I11.0 Hypertensive heart disease with heart failure; F31.9 Bipolar disorder, unspecified; F41.9 Anxiety disorder, unspecified; I48.0 Paroxysmal atrial fibrillation; J44.9 Chronic obstructive pulmonary disease, unspecified; K21.9 Gastro-esophageal reflux disease without esophagitis; I25.10 Atherosclerotic heart disease of native coronary artery without angina pectoris; Z21 Asymptomatic human immunodeficiency virus [HIV] infection status; Z88.2 Allergy status to sulfonamides; Z88.5 Allergy status to narcotic agent; Z88.1 Allergy status to other antibiotic agents; Z88.8 Allergy status to other drugs, medicaments and biological substances; Z11.52 Encounter for screening for COVID-19; Z90.49 Acquired absence of other specified parts of digestive tract; Z79.899 Other long term (current) drug therapy; Z91.048 Other nonmedicinal substance allergy status; Z96.611 Presence of right artificial shoulder joint; Z96.612 Presence of left artificial shoulder joint
CPT/HCPCS: 36415; 71045; 71250; 74018; 74176; 80048; 80076; 81001; 83690; 83735; 83880; 84100; 84484; 85025; 85610; 87804; 87811; 93005; 94640; 96361; 96365; 96374; 96375; 99285; C9113; J0360; J0744; J1170; J1650; J1940; J2405; J2550; J3480; J3535; J7030; J7040; J7613; J7644

== ENCOUNTER 2023-10-21 16:12 | Emergency (ER) | payer OTHER ==
[2023-10-21 17:28] LABS: Specific Gravity 1.023 (1.005-1.030); Sqamous Epithelial <5 /HPF (None Seen); Urine Bacteria 20-50 /HPF (<20); Urine Bilirubin NEGATIVE (Negative); Urine Blood Negative (Negative); Urine Clarity Extremely Turbid (Clear); Urine Color Yellow (Yellow); Urine Culture Reflex Order REFLEXED; Urine Glucose NEGATIVE (Negative); Urine Ketones NEGATIVE (Negative); Urine Micro Reflex YN NO BILL MICROSCOPIC; Urine Mucus Slight /HPF (None Seen); Urine Nitrite NEGATIVE (Negative); Urine Protein TRACE (Negative); Urine RBC 21-50 /HPF (None Seen); Urine Urobilinogen Normal (Normal); Urine WBC >50 /HPF (<5); Urine WBC Clump Rare /HPF (None Seen); Urine pH 5.5 (5.0-7.0)
[2023-10-21] MEDS ORDERED: CEFTRIAXONE 1000 MG/VIAL ONE (17:49)
[2023-10-21] MEDS ORDERED: CIPROFLOXACIN HCL 500 MG TAB ONE (17:49)
[2023-10-21] MEDS ORDERED: PHENAZOPYRIDINE 100MG TAB PO ONE (17:50)
[2023-10-21] MEDS ORDERED: NA CHLORIDE 0.9% 50 ML ONE (17:50)
[2023-10-21] MEDS ORDERED: NA CHLORIDE 0.9% 500 ML ONE (17:50)
[2023-10-21 18:16] LABS: Albumin 3.4 g/dL (3.4-5.0); Anion Gap 5.4 mEq/L (5.0-15.0); Bilirubin Total 0.4 mg/dL (0.2-1.0); Globulin 3.3 g/dL (2.3-3.5); Potassium 4.4 mEq/L (3.5-5.1); Protein, Total 6.7 g/dL (6.4-8.2)
--- NOTE | 2023-10-21 18:37 | RAD REPORT ---
EXAM DESCRIPTION: CT - Stone Protocol - 10/21/2023 5:20 pm CLINICAL HISTORY: Abd pain;Flank pain COMPARISON: Abdomen Pelvis Wo Contrast dated 10/14/2023; Abdomen Pelvis W Contrast dated 4; Abdomen Pelvis Wo Contrast dated 06/01/2023; Stone Protocol dated 02/20/2023 TECHNIQUE: Thin cut axial CT imaging of the abdomen and pelvis was performed without IV contrast. Mu ltiplanar reformats were generated and reviewed. All CT scans are performed using dose optimization technique as appropriate and may include automated exposure control or mA/KV adjustment according to patient size. FINDINGS: No suspicious findings in the lung bases. The liver, spleen, adrenal glands, and pancreas show no suspicious findings. Gallbladder was surgical ly removed. Multiple cortical cystic lesions, largest on the left measuring 6.4 cm, stable, although not well thomas racterized on noncontrast CT. Symmetric renal contour, without suspicious parenchymal findings within limits of noncontrast technique. No evidence of radiopaque calculi or hydroureteronephrosis. No dilated bowel loops or bowel wall thickening. No free air, free fluid or inflammatory stranding. N o hernia, mass or bulky lymphadenopathy. The urinary bladder is decompressed limiting evaluation. . No suspicious bony findings. IMPRESSION: No acute intra-abdominal process. Stable incidental findings as above.
[2023-10-21 18:39] LABS: Absolute Eosinophils 0.1 K/uL (0-0.5); Absolute Lymphocytes (CBC) 0.8 K/uL (0.7-4.9); Absolute Monocytes 0.5 K/uL (0.1-1.3); Absolute Neutrophil 4.1 K/uL (1.8-8.0); Basophils % 0.9 % (0-1.3); Hematocrit 33.3 % (36.0-45.0); Hemoglobin 11.1 g/dL (12.0-15.0); Lymphocytes % 15.2 % (15.3-44.8); MCH 28.2 pg (27.0-35.0); MCHC 33.2 g/dL (32.0-36.0); MCV 84.9 fL (80-100); MPV 6.8 fL (7.6-11.3); Monocytes % 8.5 % (3.3-12.3); Neutrophils % 74.4 % (41.7-73.7); Nucleated Red Blood Cells % 0.1 % (0-0); Platelets 149 thou/uL (152-406); RBC Red Blood Cell Count 3.92 M/uL (3.86-4.86); Red Cell Distribution Width 17.9 % (12.1-15.2)
--- NOTE | 2023-10-21 18:46 | ER ---
Nurse's Notes [facility] Name: Marjan Kolb Age: 68 yrs Sex: Female : 1955 Arrival Date: 10/21/2023 Time: 16:12 Bed 16 Private MD: Diagnosis: Dysuria;UTI/ Urinary tract infection, site not specified;Abdominal pain, unspecified Presentation: 10/20 16:44 Chief complaint: EMS states: PATIENT COMPLAINS OF UTI SYMPTOMS SINCE THIS AM. db Coronavirus screen: Client denies travel out of the [place] in the last 14 days. At this time, the client does not indicate any symptoms associated with coronavirus-19. Ebola Screen: Patient negative for fever greater than or equal to 101.5 degrees Fahrenheit, and additional compatible Ebola Virus Disease symptoms Patient denies exposure to infectious person. Patient denies travel to an Ebola-affected area in the 21 days before illness onset. No symptoms or risks identified at this time. Initial Sepsis Screen: Does the patient meet any 2 criteria? No. Patient's initial sepsis screen is negative. Does the patient have a suspected source of infection? No. Patient's initial sepsis screen is negative. Risk Assessment: Do you want to hurt yourself or someone else? Patient reports no desire to harm self or others. Onset of symptoms was October 21, 2023. 16:44 Method Of Arrival: EMS: [facility] db 16:44 Acuity: BLAYNE 4 db Triage Assessment: 16:48 General: Appears in no apparent distress. comfortable, Behavior is calm, cooperative. db Pain: Complains of pain in pelvis. Neuro: Level of Consciousness is awake, alert, obeys commands, Oriented to person, place, time, situation, Speech is normal. Respiratory: Airway is patent Respiratory effort is even, unlabored, Respiratory pattern is regular, symmetrical. 16:48 : Reports burning with urination. db Historical: - Allergies: 16:48 butorphanol; db 16:48 Bactrim; db 16:48 Azithromycin; db 16:48 Fentanyl; db 16:48 Reglan; db 16:48 Sulfa (Sulfonamide Antibiotics); db 16:48 TRIMETHOPRIM; db - PMHx: 16:48 angina pectoris; Anxiety; Bipolar disorder; COPD (Unknown); esophageal varicies; db Hepatitis; HIV positive; Hypertensive disorder; Migraine; panic attack; Atrial fibrillation; - PSHx: 16:48 Cholecystectomy; Appendectomy; db - Immunization history:: Adult Immunizations unknown. - Infectious Disease History:: Denies. - Social history:: Smoking status: Patient/guardian denies using tobacco, the patient reports quitting approximately 4 years ago. - Family history:: pertinent for. Screenin:07 [facility] ED Fall Risk Assessment (Adult) History of falling in the last 3 months, db including since admission No falls in past 3 months (0 pts) Confusion or Disorientation No (0 pts) Intoxicated or Sedated No (0 pts) Impaired Gait No (0 pts) Mobility Assist Device Used No (0 pt) Altered Elimination No (0 pt) Score/Fall Risk Level 0 - 2 = Low Risk Oriented to surroundings, Maintained a safe environment. Abuse screen: Denies threats or abuse. Denies injuries from another. Nutritional screening: No deficits noted. Tuberculosis screening: No symptoms or risk factors identified. Assessment: 18:30 Reassessment: Patient appears in no apparent distress at this time. Patient and/or db family updated on plan of care and expected duration. Pain level reassessed. Patient is alert, oriented x 3, equal unlabored respirations, skin warm/dry/pink. General: Appears in no apparent distress. comfortable, Behavior is calm, cooperative. Neuro: Level of Consciousness is awake, alert, obeys commands, Oriented to person, place, time, situation. Vital Signs: 16:44 BP 156 / 122; Pulse 63; Resp 18; Temp 98.6; Pulse Ox 99% ; Weight 80.74 kg; Height 5 db ft. 4 in. ; 18:30 BP 189 / 111; Pulse 60; Resp 18; Pulse Ox 97% ; db 19:09 BP 186 / 112; Pulse 62; Resp 17 S; Temp 98.4(O); Pulse Ox 98% on R/A; lg3 16:44 Body Mass Index 30.55 (80.74 kg, 162.56 cm) db ED Course: 16:19 Patient arrived in ED. db 16:21 Justus Neil PA is PHCP. cp 16:21 Justus Kolb MD is Attending Physician. cp 16:26 Alejandrina Fairchild, ASHLEY is Primary Nurse. db 16:48 Triage completed. db 16:48 Arm band placed on. db 17:22 CT Stone Protocol In Process Unspecified. EDMS 17:35 Missed attempt(s): 22 gauge in left antecubital area. Bleeding controlled, band aid db applied, catheter tip intact. 18:20 Missed attempt(s): 24 gauge in right antecubital area. Bleeding controlled, band aid iw applied, catheter tip intact. 18:32 Initial lab(s) drawn, by me, sent to lab. Inserted saline lock: 22 gauge in right iw ,using aseptic technique. foot Blood collected. 19:07 Patient has correct armband on for positive identification. Bed in low position. Call db light in reach. Side rails up X 1. Pulse ox on. NIBP on. Warm blanket given. 19:07 Report given to ASHLEY JACKSON. db 19:11 No provider procedures requiring assistance completed. IV discontinued, intact, lg3 bleeding controlled, No redness/swelling at site. Pressure dressing applied. Administered Medications: 18:00 Drug: Ciprofloxacin PO 500 mg PO once Route: PO; db 18:00 Drug: Phenazopyridine PO 200 mg PO once Route: PO; db 18:35 Drug: NS 0.9% IV 500 ml IV at bolus once Route: IV; Rate: bolus; Site: Other; db 18:35 Drug: Rocephin IV 1 grams IV at per protocol once; Given slow IV push per pharmacy db instructions {Note: IV ACCESS RIGHT FOOT.} Route: IV; Rate: per protocol; Site: Other; 18:48 Drug: Cefdinir PO 300 mg PO once Route: PO; db 18:48 Drug: Ondansetron IVP 4 mg IVP once; over 2 minutes Route: IVP; Site: Other; db 18:48 Drug: morphine IVP or IV 4 mg IVP once over 4 mins Route: IVP; Infused Over: 4 mins; db Site: Other; Medication: 19:16 VIS not applicable for this client. lg3 Outcome: 18:46 Discharge ordered by . thomas 19:14 Discharged to home ambulatory, lg3 19:14 Condition: stable 19:14 Discharge instructions given to patient, Instructed on discharge instructions, follow up and referral plans. medication usage, Demonstrated understanding of instructions, follow-up care, medications, Prescriptions given X 4, 19:17 Patient left the ED. lg3 Signatures: Dispatcher [employer] EDJustus Perrin MD MD cha Williams, Irene, RN RN iw Justus Neil PA PA cp Able, Lacie, RN RN lg3 Alejandrina Fairchild, RN RN db
--- NOTE | 2023-10-21 18:47 | EDPHYS ---
Physician Documentation [facility] Name: Marjan Kolb Age: 68 yrs Sex: Female : 1955 Arrival Date: 10/21/2023 Time: 16:12 Bed 16 Private MD: Justus Cervantes HPI: 10/20 17:47 This 68 yrs old Female presents to ER via EMS with complaints of Urinary thomas Problem. 17:47 The patient presents with pelvic pain, urinary symptoms, dysuria, frequency, urgency. thomas Onset: The symptoms/episode began/occurred 3 day(s) ago. Modifying factors: The symptoms are alleviated by nothing, the symptoms are aggravated by urinating. Associated signs and symptoms: Pertinent positives: dysuria, urinary frequency. Severity of symptoms: At their worst the symptoms were mild, in the emergency department the symptoms are unchanged. The patient is not sexually active. The patient has not experienced similar symptoms in the past. Historical: - Allergies: 16:48 butorphanol; db 16:48 Bactrim; db 16:48 Azithromycin; db 16:48 Fentanyl; db 16:48 Reglan; db 16:48 Sulfa (Sulfonamide Antibiotics); db 16:48 TRIMETHOPRIM; db - PMHx: 16:48 angina pectoris; Anxiety; Bipolar disorder; COPD (Unknown); esophageal varicies; db Hepatitis; HIV positive; Hypertensive disorder; Migraine; panic attack; Atrial fibrillation; - PSHx: 16:48 Cholecystectomy; Appendectomy; db - Immunization history:: Adult Immunizations unknown. - Infectious Disease History:: Denies. - Social history:: Smoking status: Patient/guardian denies using tobacco, the patient reports quitting approximately 4 years ago. - Family history:: pertinent for. ROS: 17:47 Constitutional: Negative for fever, chills, and weight loss, Eyes: Negative for injury, thomas pain, redness, and discharge, ENT: Negative for injury, pain, and discharge, Neck: Negative for injury, pain, and swelling, Cardiovascular: Negative for chest pain, palpitations, and edema, Respiratory: Negative for shortness of breath, cough, wheezing, and pleuritic chest pain, Back: Negative for injury and pain, MS/Extremity: Negative for injury and deformity, Skin: Negative for injury, rash, and discoloration, Neuro: Negative for headache, weakness, numbness, tingling, and seizure, Psych: Negative for depression, anxiety, suicide ideation, homicidal ideation, and hallucinations, Allergy/Immunology: Negative for hives, rash, and allergies, Endocrine: Negative for neck swelling, polydipsia, polyuria, polyphagia, and marked weight changes, Hematologic/Lymphatic: Negative for swollen nodes, abnormal bleeding, and unusual bruising, 17:47 Abdomen/GI: Positive for abdominal pain, of the suprapubic area, Exam: 17:47 Constitutional: This is a well developed, well nourished patient who is awake, alert, thomas and in no acute distress. Head/Face: Normocephalic, atraumatic. Eyes: Pupils equal round and reactive to light, extra-ocular motions intact. Lids and lashes normal. Conjunctiva and sclera are non-icteric and not injected. Cornea within normal limits. Periorbital areas with no swelling, redness, or edema. ENT: Nares patent. No nasal discharge, no septal abnormalities noted. Tympanic membranes are normal and external auditory canals are clear. Oropharynx with no redness, swelling, or masses, exudates, or evidence of obstruction, uvula midline. Mucous membranes moist. Neck: Trachea midline, no thyromegaly or masses palpated, and no cervical lymphadenopathy. Supple, full range of motion without nuchal rigidity, or vertebral point tenderness. No Meningismus. Chest/axilla: Normal chest wall appearance and motion. Nontender with no deformity. No lesions are appreciated. Cardiovascular: Regular rate and rhythm with a normal S1 and S2. No gallops, murmurs, or rubs. Normal PMI, no JVD. No pulse deficits. Respiratory: Lungs have equal breath sounds bilaterally, clear to auscultation and percussion. No rales, rhonchi or wheezes noted. No increased work of breathing, no retractions or nasal flaring. Back: No spinal tenderness. No costovertebral tenderness. Full range of motion. Female : Normal external genitalia. Skin: Warm, dry with normal turgor. Normal color with no rashes, no lesions, and no evidence of cellulitis. MS/ Extremity: Pulses equal, no cyanosis. Neurovascular intact. Full, normal range of motion. Neuro: Awake and alert, GCS 15, oriented to person, place, time, and situation. Cranial nerves II-XII grossly intact. Motor strength 5/5 in all extremities. Sensory grossly intact. Cerebellar exam normal. Normal gait. Psych: Awake, alert, with orientation to person, place and time. Behavior, mood, and affect are within normal limits. 17:47 Abdomen/GI: Inspection: distension, that is mild, Bowel sounds: normal, Palpation: mild abdominal tenderness, in the suprapubic area, Liver: no appreciated palpable abnormalities, Hernia: not appreciated, 17:47 : CVA tenderness, is absent, Pelvic Exam: is not necessary for this patient, Bladder: is normal, Sexual behavior: the patient is not sexually active, 17:47 Skin: no rash present. Vital Signs: 16:44 BP 156 / 122; Pulse 63; Resp 18; Temp 98.6; Pulse Ox 99% ; Weight 80.74 kg; Height 5 db ft. 4 in. ; 18:30 BP 189 / 111; Pulse 60; Resp 18; Pulse Ox 97% ; db 19:09 BP 186 / 112; Pulse 62; Resp 17 S; Temp 98.4(O); Pulse Ox 98% on R/A; lg3 16:44 Body Mass Index 30.55 (80.74 kg, 162.56 cm) db MDM: 16:21 Patient medically screened. cp 17:49 Differential diagnosis: kidney stone, menometrorrhagia, menorrhea, nonspecific thomas abdominal pain, urinary tract infection. Data reviewed: vital signs, nurses notes, lab test result(s), radiologic studies, CT scan. Consideration of Admission/Observation Escalation of care including admission/observation considered. I considered the following discharge prescriptions or medication management in the emergency department Medications were administered in the Emergency Department. See MAR. Independent interpretation of the following test(s) in the Emergency Department CT Scan: My interpretation is ct stone. Test considered but Not performed: Ultrasound no abd usg. Care significantly affected by the following chronic conditions: Chronic Obstructive Pulmonary Disease, Obesity, hepatitis, anxiety, bipolar. 10/20 16:39 Order name: Urinalysis W/Microscopic; Complete Time: 18:09 cp 10/20 16:46 Order name: CBC with Diff; Complete Time: 18:46 thomas 10/20 16:46 Order name: Comprehensive Metabolic Panel; Complete Time: 18:31 thomas 10/20 17:32 Order name: Urine Culture EDMS 10/20 16:46 Order name: CT Stone Protocol; Complete Time: 18:46 thomas 10/20 18:11 Order name: [place]. Order: RECOLLECT - lav clotted; Complete Time: 18:44 ty 10/20 18:46 Order name: Blood Pressure Recheck; Complete Time: 19:13 thomas Administered Medications: 18:00 Drug: Ciprofloxacin PO 500 mg PO once Route: PO; db 18:00 Drug: Phenazopyridine PO 200 mg PO once Route: PO; db 18:35 Drug: NS 0.9% IV 500 ml IV at bolus once Route: IV; Rate: bolus; Site: Other; db 18:35 Drug: Rocephin IV 1 grams IV at per protocol once; Given slow IV push per pharmacy db instructions {Note: IV ACCESS RIGHT FOOT.} Route: IV; Rate: per protocol; Site: Other; 18:48 Drug: Cefdinir PO 300 mg PO once Route: PO; db 18:48 Drug: Ondansetron IVP 4 mg IVP once; over 2 minutes Route: IVP; Site: Other; db 18:48 Drug: morphine IVP or IV 4 mg IVP once over 4 mins Route: IVP; Infused Over: 4 mins; db Site: Other; Disposition Summary: 10/21/23 18:46 Discharge Ordered Notes: Location: Home [facility] Problem: new [facility] Symptoms: have improved thomas Condition: Stable thomas Diagnosis - Dysuria thomas - UTI/ Urinary tract infection, site not specified thomas - Abdominal pain, unspecified thomas Followup: thomas - With: Private Physician - When: 2 - 3 days - Reason: Recheck today's complaints, Continuance of care, Re-evaluation by your physician Discharge Instructions: - Discharge Summary Sheet thomas - Abdominal Pain, Adult thomas - Dysuria thomas - Urinary Tract Infection, Adult thomas - Urinary Tract Infection, Adult, [id number] [facility] Forms: - Medication Reconciliation Form [facility] - Antibiotic Education [facility] - Prescription Opioid Use [facility] - Patient Portal Instructions [facility] - Leadership Thank You Letter [facility] Prescriptions: - cefdinir 300 mg Oral capsule - take 1 capsule ORAL route 2 times per day for 5 days; 10 capsule; Refills: 0, [facility] Product Selection Permitted - Pyridium 200 mg Oral Tablet - take 1 tablet ORAL route every 8 hours for 3 days; 9 tablet; Refills: 0, [facility] Product Selection Permitted - Cipro 500 mg Oral Tablet - take 1 tablet ORAL route every 12 hours for 7 days; 14 tablet; Refills: 0, thomas Product Selection Permitted - dicyclomine 20 mg Oral tablet - take 1 tablet ORAL route 4 times per day; 28 tablet; Refills: 0, Product thomas Selection Permitted Signatures: Dispatcher [employer] EDJustus Perrin MD MD cha Page, Corey, PA PA cp Benton, Danielle, RN RN Андрей Gomez Corrections: (The following items were deleted from the chart) 16:47 16:47 CBC+H.LAB.BRZ ordered. EDMS EDMS 16:47 16:47 COMPREHENSIVE METABOLIC PANEL+C.LAB.BRZ ordered. EDMS EDMS
[2023-10-21] MEDS ORDERED: ONDANSETRON 4 MG/2 ML VIAL ONE (18:48)
[2023-10-21] MEDS ORDERED: CEFDINIR 300 MG CAP PO ONE (18:48)
[2023-10-21] MEDS ORDERED: MORPHINE 4 MG/ML SYR ONE (18:49)
[2023-10-21 19:33] VITALS: BP 186/112; TEMP 98.4; O2SAT 98
== END 2023-10-21 19:17 | disposition home or self-care (01) ==
LOC: ER 16:12
DX: N39.0 Urinary tract infection, site not specified (principal); R10.9 Unspecified abdominal pain; Z21 Asymptomatic human immunodeficiency virus [HIV] infection status
CPT/HCPCS: 87088; 85025; 81001; 87086; 36415; 87077; 87186; 80053; 76377; 74176; 96375; 96374; 99285; J2405; J7040; J0696

== ENCOUNTER 2023-11-16 14:34 | Emergency (ER) | payer OTHER ==
--- NOTE | 2023-11-16 15:31 | RAD REPORT ---
EXAM DESCRIPTION: RAD - Chest Single View - 11/16/2023 3:19 pm CLINICAL HISTORY: CHEST PAIN COMPARISON: Chest Single View dated 10/24/2023; Abdomen 1 View (KUB) dated 10/13/2023; Abdomen 1 View ( KUB) dated 10/11/2023; Chest Single View dated 10/10/2023 FINDINGS: Lines: None. Lungs: No evidence of edema or pneumonia. Pleural: No significant pleural effusions or pneumothorax. Cardiac: Cardiomegaly. Question main pulmonary artery enlargement. Mediastinum: Within normal limits. Bones: No acute fractures. Shoulder arthroplasties. Other: None IMPRESSION: No acute cardiopulmonary disease.
[2023-11-16 16:45] LABS: Absolute Eosinophils 0.1 K/uL (0-0.5); Absolute Monocytes 0.6 K/uL (0.1-1.3); Absolute Neutrophil 3.4 K/uL (1.8-8.0); Basophils % 0.6 % (0-1.3); Eosinophils % 2.4 % (0-4.4); Hematocrit 35.3 % (36.0-45.0); Hemoglobin 11.7 g/dL (12.0-15.0); Lymphocytes % 19.5 % (15.3-44.8); MCH 28.1 pg (27.0-35.0); MCHC 33.3 g/dL (32.0-36.0); MCV 84.4 fL (80-100); MPV 7.3 fL (7.6-11.3); Monocytes % 12.2 % (3.3-12.3); Neutrophils % 65.3 % (41.7-73.7); Nucleated Red Blood Cells % 0.1 % (0-0); Platelets 155 thou/uL (152-406); RBC Red Blood Cell Count 4.18 M/uL (3.86-4.86)
[2023-11-16 16:53] LABS: Anion Gap 8.1 mEq/L (5.0-15.0); Potassium 3.1 mEq/L (3.5-5.1)
[2023-11-16] MEDS ORDERED: ONDANSETRON 4 MG/2 ML VIAL ONE (17:19)
[2023-11-16] MEDS ORDERED: MORPHINE 4 MG/ML SYR ONE (17:20)
[2023-11-16] MEDS ORDERED: cloNIDine HCL 0.1 MG TAB ONE (17:56)
[2023-11-16] MEDS ORDERED: NA CHLORIDE 0.9% 500 ML ONE (17:57)
[2023-11-16] MEDS ORDERED: HYDROCODONE/APAP 5/325 MG TAB ONE (17:57)
[2023-11-16] MEDS ORDERED: POTASSIUM CL SA 10 MEQ TAB PO ONE (18:03)
--- NOTE | 2023-11-16 18:44 | ER ---
Nurse's Notes [facility] Name: Marjan Kolb Age: 68 yrs Sex: Female : 1955 Arrival Date: 11/16/2023 Time: 14:34 Bed 24 Private MD: Diagnosis: Essential (primary) hypertension Presentation: 11/15 14:40 Chief complaint: Patient states: Pt states she was prescribed new medications for BP tl4 today at PCP. 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 Pt c/o MARTIN, SOB, and chest pressure that is ongoing. Pt states symptoms got worse after angry interaction with . Coronavirus screen: At this time, the client does not indicate any symptoms associated with coronavirus-19. Ebola Screen: No symptoms or risks identified at this time. Initial Sepsis Screen: Does the patient meet any 2 criteria? No. Patient's initial sepsis screen is negative. Does the patient have a suspected source of infection? No. Patient's initial sepsis screen is negative. Risk Assessment: Do you want to hurt yourself or someone else? Patient reports no desire to harm self or others. Onset of symptoms is unknown. 14:40 Method Of Arrival: EMS: [facility] tl4 14:40 Acuity: BLAYNE 3 tl4 Triage Assessment: 14:50 General: Appears uncomfortable, Behavior is cooperative, crying. Pain: Complains of tl4 pain in chest. EENT: No signs and/or symptoms were reported regarding the EENT system. Neuro: Level of Consciousness is awake, alert, obeys commands, Oriented to person, place, time, situation, Moves all extremities. Full function Gait is steady, Speech is normal, Reports headache. Cardiovascular: Reports chest pain, Capillary refill < 3 seconds Patient's skin is warm and dry. Respiratory: Reports shortness of breath pain with movement Airway is patent Respiratory effort is even, unlabored, Respiratory pattern is regular, symmetrical. GI: No signs and/or symptoms were reported involving the gastrointestinal system. : No signs and/or symptoms were reported regarding the genitourinary system. Derm: No signs and/or symptoms reported regarding the dermatologic system. Musculoskeletal: No signs and/or symptoms reported regarding the musculoskeletal system. Historical: - Allergies: 14:48 Azithromycin; tl4 14:48 Bactrim; tl4 14:48 butorphanol; tl4 14:48 Fentanyl; tl4 14:48 Reglan; tl4 14:48 Sulfa (Sulfonamide Antibiotics); tl4 14:48 TRIMETHOPRIM; tl4 - PMHx: 14:48 angina pectoris; Anxiety; Atrial fibrillation; Bipolar disorder; COPD (Unknown); tl4 esophageal varicies; Hepatitis; HIV positive; Hypertensive disorder; Migraine; panic attack; - PSHx: 14:48 Appendectomy; Cholecystectomy; tl4 - Immunization history:: Adult Immunizations unknown. - Infectious Disease History:: Denies. - Social history:: Smoking status: Patient denies any tobacco usage or history of. Screenin:16 [facility] ED Fall Risk Assessment (Adult) History of falling in the last 3 months, ld1 including since admission No falls in past 3 months (0 pts) Confusion or Disorientation No (0 pts) Intoxicated or Sedated No (0 pts) Impaired Gait No (0 pts) Mobility Assist Device Used No (0 pt) Altered Elimination No (0 pt) Score/Fall Risk Level 0 - 2 = Low Risk Oriented to surroundings, Maintained a safe environment, Educated pt \T\ family on fall prevention, incl call for assistance when getting out of bed, Assessed \T\ reinforced patient's understanding of fall precautions, Provided non-skid footwear, Hourly rounding (assess needs \T\ fall precautionary measures) done, Used ambulatory aids as needed (educated on \T\ assisted with), Used gait belt as appropriate. 16:16 Abuse screen: Denies threats or abuse. Denies injuries from another. Nutritional ld1 screening: No deficits noted. Tuberculosis screening: No symptoms or risk factors identified. Assessment: 16:16 General: Appears in no apparent distress. comfortable, Behavior is calm, cooperative, ld1 appropriate for age. Pain: Complains of pain in face, anterior aspect of left upper chest and left breast Pain does not radiate. Pain currently is 8 out of 10 on a pain scale. Quality of pain is described as pressure, throbbing, Pain began 2 hours ago. Is continuous. Neuro: Level of Consciousness is awake, alert, obeys commands, Oriented to person, place, time, situation. Cardiovascular: Capillary refill < 3 seconds Patient's skin is warm and dry. Respiratory: Airway is patent Respiratory effort is even, unlabored. GI: Abdomen is round non-distended. : No signs and/or symptoms were reported regarding the genitourinary system. EENT: No signs and/or symptoms were reported regarding the EENT system. Derm: No signs and/or symptoms reported regarding the dermatologic system. Musculoskeletal: No signs and/or symptoms reported regarding the musculoskeletal system. Vital Signs: 14:40 BP 228 / 93; Pulse 68; Resp 20; Temp 97.3; Pulse Ox 100% ; Weight 80.74 kg; Height 5 tl4 ft. 4 in. ; Pain 10/10; 16:16 BP 187 / 92; Pulse 57; Resp 18; Pulse Ox 95% on R/A; ld1 17:10 BP 183 / 132 Supine; Pulse 59; iw 17:17 BP 169 / 118 Sitting; Pulse 87; iw 17:20 BP 153 / 107; Pulse 109; iw 18:43 BP 152 / 59; Pulse 70; Resp 18; Pulse Ox 94% on R/A; ld1 19:15 BP 164 / 100; Pulse 62; Resp 19; Temp 98.2; Pulse Ox 97% ; jj7 14:40 Body Mass Index 30.55 (80.74 kg, 162.56 cm) tl4 14:40 Pain Scale: Adult tl4 ED Course: 14:36 Patient arrived in ED. tl4 14:38 Rosemary Cespedes [facility]-C [facility] kb 14:38 Justus Kolb MD is Attending Physician. kb 14:48 Triage completed. tl4 14:51 Arm band placed on left wrist. tl4 15:21 XRAY Chest (1 view) In Process Unspecified. EDMS 15:55 Wanda Shah, ASHLEY is Primary Nurse. ld1 16:16 Patient has correct armband on for positive identification. Placed in gown. Bed in low ld1 position. Call light in reach. Side rails up X2. roll sheeting cutter on. Pulse ox on. NIBP on. Door closed. Noise minimized. Warm blanket given. 16:16 No provider procedures requiring assistance completed. Inserted saline lock: 22 gauge ld1 in right ,using aseptic technique. foot Blood collected. 16:29 Initial lab(s) drawn, by me, sent to lab. Missed attempt(s): 22 gauge in right foot. iw Bleeding controlled, band aid applied, catheter tip intact. 16:29 Inserted saline lock: 24 gauge in left ,using aseptic technique. foot. iw 19:15 Provided Education on: TAKING MEDS, ELIMINATING STRESS, AND DIET. jj7 19:15 IV discontinued, intact, bleeding controlled, No redness/swelling at site. Pressure jj7 dressing applied. Administered Medications: 17:24 Drug: morphine IVP or IV 2 mg IVP once over 4 mins Route: IVP; Infused Over: 4 mins; iw Site: Other; 19:27 Follow up: Response: Marked relief of symptoms; Pain is decreased jj7 17:24 Drug: Ondansetron IVP 4 mg IVP once; over 2 minutes Route: IVP; Site: Other; iw 19:26 Follow up: Response: Marked relief of symptoms jj7 18:02 Drug: NS 0.9% IV 500 ml IV at bolus once Route: IV; Rate: bolus; Site: Other; iw 19:15 Follow up: IV Status: Completed infusion jj7 18:02 Drug: cloNIDine PO 0.1 mg PO once Route: PO; iw 18:02 Drug: HYDROcodone-acetaminophen PO 5 mg-325 mg 1 tabs PO once Route: PO; iw 19:26 Follow up: Response: Marked relief of symptoms; Pain is decreased jj7 18:06 Drug: Potassium Chloride PO 40 mEq PO once Route: PO; ld1 19:26 Follow up: Response: No adverse reaction jj7 Medication: 16:16 VIS not applicable for this client. ld1 Outcome: 18:43 Discharge ordered by MD. taylor 19:15 Discharged to home ambulatory, jj7 19:15 Condition: improved 19:15 Discharge instructions given to patient, Instructed on discharge instructions, Demonstrated understanding of instructions, 19:26 Patient left the ED. jj7 Signatures: Dispatcher [employer] EDNE Rosemary Cespedes, LAP RUNNER-C LAP RUNNER-Jacquelin Harman RN RN iw Wanda Shah RN RN ld1 Benita Guerrero RN RN jj7 Arron Mondragon RN RN tl4
--- NOTE | 2023-11-16 18:44 | EDPHYS ---
Physician Documentation [facility] Name: Marjan Kolb Age: 68 yrs Sex: Female : 1955 Arrival Date: 11/16/2023 Time: 14:34 Bed 24 Private MD: ED Physician Justus Kolb HPI: 11/15 17:57 This 68 yrs old Female presents to ER via EMS with complaints of High Blood Pressure. kb 17:57 Pt is a 68 year old female who presents for high blood pressure that started this kb morning. States she was seen by mandrel maker today and prescribed new BP medication, but hasn't been able to pick it up yet. States she got into an argument with her and it caused her to have chest pain as well. . Historical: - Allergies: 14:48 Azithromycin; tl4 14:48 Bactrim; tl4 14:48 butorphanol; tl4 14:48 Fentanyl; tl4 14:48 Reglan; tl4 14:48 Sulfa (Sulfonamide Antibiotics); tl4 14:48 TRIMETHOPRIM; tl4 - PMHx: 14:48 angina pectoris; Anxiety; Atrial fibrillation; Bipolar disorder; COPD (Unknown); tl4 esophageal varicies; Hepatitis; HIV positive; Hypertensive disorder; Migraine; panic attack; - PSHx: 14:48 Appendectomy; Cholecystectomy; tl4 - Immunization history:: Adult Immunizations unknown. - Infectious Disease History:: Denies. - Social history:: Smoking status: Patient denies any tobacco usage or history of. ROS: 17:57 Constitutional: As per HPI kb Exam: 17:57 Constitutional: This is a well developed, well nourished patient who is awake, alert, kb and in no acute distress. Head/Face: Normocephalic, atraumatic. ENT: Moist Mucous membranes Cardiovascular: Regular rate Respiratory: Respirations even and unlabored. No increased work of breathing. Talking in full sentences Abdomen/GI: Soft, non-tender. No distention Skin: Warm, dry with normal turgor. Normal color. MS/ Extremity: Pulses equal, no cyanosis. Neurovascular intact. Full, normal range of motion. Neuro: Awake and alert, GCS 15, oriented to person, place, time, and situation. Moves all extremities. Normal gait. Vital Signs: 14:40 BP 228 / 93; Pulse 68; Resp 20; Temp 97.3; Pulse Ox 100% ; Weight 80.74 kg; Height 5 tl4 ft. 4 in. ; Pain 10/10; 16:16 BP 187 / 92; Pulse 57; Resp 18; Pulse Ox 95% on R/A; ld1 17:10 BP 183 / 132 Supine; Pulse 59; iw 17:17 BP 169 / 118 Sitting; Pulse 87; iw 17:20 BP 153 / 107; Pulse 109; iw 18:43 BP 152 / 59; Pulse 70; Resp 18; Pulse Ox 94% on R/A; ld1 19:15 BP 164 / 100; Pulse 62; Resp 19; Temp 98.2; Pulse Ox 97% ; jj7 14:40 Body Mass Index 30.55 (80.74 kg, 162.56 cm) tl4 14:40 Pain Scale: Adult tl4 MDM: 14:38 Patient medically screened. kb 17:56 Differential diagnosis: hypertensive crisis, Malignant HTN, [place], abnormal EKG. Data kb reviewed: vital signs, nurses notes. Management of patient was discussed with the following: Dr Kolb, recommends outpatient follow up. Historians other than the Patient: EMS: [facility]. Counseling: I had a detailed discussion with the patient and/or guardian regarding the historical points, exam findings, and any diagnostic results supporting the discharge/admit diagnosis, lab results, radiology results, the need for outpatient follow up, a family practitioner, to return to the emergency department if symptoms worsen or persist or if there are any questions or concerns that arise at home. 11/15 14:47 Order name: Basic Metabolic Panel; Complete Time: 16:55 kb 11/15 14:47 Order name: CBC with Diff; Complete Time: 16:52 kb 11/15 14:47 Order name: Troponin HS; Complete Time: 16:55 kb 11/15 14:47 Order name: XRAY Chest (1 view); Complete Time: 15:37 kb 11/15 14:47 Order name: EKG; Complete Time: 14:47 kb 11/15 14:47 Order name: Cardiac monitoring; Complete Time: 16:20 kb 11/15 14:47 Order name: EKG - Nurse/Tech; Complete Time: 16:20 kb 11/15 14:47 Order name: IV Saline Lock; Complete Time: 16:21 kb 11/15 14:47 Order name: Labs collected and sent; Complete Time: 16:21 kb 11/15 14:47 Order name: O2 Per Protocol; Complete Time: 15:55 kb 11/15 14:47 Order name: O2 Sat Monitoring; Complete Time: 15:55 kb 11/15 15:55 Order name: Vital Signs; Complete Time: 15:56 kb 11/15 17:13 Order name: Orthostatic Blood Pressure; Complete Time: 17:24 kb Administered Medications: 17:24 Drug: morphine IVP or IV 2 mg IVP once over 4 mins Route: IVP; Infused Over: 4 mins; iw Site: Other; 19:27 Follow up: Response: Marked relief of symptoms; Pain is decreased jj7 17:24 Drug: Ondansetron IVP 4 mg IVP once; over 2 minutes Route: IVP; Site: Other; iw 19:26 Follow up: Response: Marked relief of symptoms jj7 18:02 Drug: NS 0.9% IV 500 ml IV at bolus once Route: IV; Rate: bolus; Site: Other; iw 19:15 Follow up: IV Status: Completed infusion jj7 18:02 Drug: cloNIDine PO 0.1 mg PO once Route: PO; iw 18:02 Drug: HYDROcodone-acetaminophen PO 5 mg-325 mg 1 tabs PO once Route: PO; iw 19:26 Follow up: Response: Marked relief of symptoms; Pain is decreased jj7 18:06 Drug: Potassium Chloride PO 40 mEq PO once Route: PO; ld1 19:26 Follow up: Response: No adverse reaction jj7 Disposition Summary: 11/16/23 18:43 Discharge Ordered Notes: Location: Home kb Condition: Stable kb Diagnosis - Essential (primary) hypertension kb Followup: kb - With: Emergency Department - When: As needed - Reason: Worsening of condition Followup: kb - With: Private Physician - When: 2 - 3 days - Reason: Recheck today's complaints, Continuance of care, Re-evaluation by your physician Discharge Instructions: - Discharge Summary Sheet kb - Hypertension, Adult, [id number] kb - How to Take Your Blood Pressure, [id number] kb - Managing Your Hypertension kb Forms: - Medication Reconciliation Form kb - Antibiotic Education kb - Prescription Opioid Use kb - Patient Portal Instructions kb - Leadership Thank You Letter kb Signatures: Dispatcher [employer] EDRosemary Turner FNP-C BREAD BAKER-Ckb Jacqulein Meier, RN RN iw Wanda Shah, RN RN ld1 Arron Mondragon RN RN tl4 Benita Guerrero RN jj7
[2023-11-16 19:52] VITALS: BP 164/100; TEMP 98.2; O2SAT 97
--- NOTE | 2023-11-17 14:08 | EKG ---
Test Date: 2023-11-16 Test Time: 16:10:16 Emergency Preparedness Coordinator: Storm ANGEL MEASUREMENT RESULTS: Intervals: Rate: 56 W[place]: QRSD: 82 QT: 520 QTc: 501 Bond: P: W[place]: QRS: 60 T: 66 INTERPRETIVE STATEMENTS: Sinus bradycardia Left ventricular hypertrophy with repolarization abnormality Prolonged QT Abnormal ECG Compared to ECG 10/24/2023 07:01:00 Left ventricular hypertrophy now present Early repolarization now present Atrial premature complex(es) no longer present First degree AV block no longer present ST (T wave) deviation no longer present Electronically Signed On 11-17-23 14:06:57 CDT by Mike Lund
== END 2023-11-16 19:26 | disposition home or self-care (01) ==
LOC: ER 14:34
DX: I10 Essential (primary) hypertension (principal); Z21 Asymptomatic human immunodeficiency virus [HIV] infection status; Z88.1 Allergy status to other antibiotic agents; Z88.2 Allergy status to sulfonamides; Z88.5 Allergy status to narcotic agent
CPT/HCPCS: 85025; 80048; 36415; 84484; 71045; J2405; J7040; 93005; 96361; 96374; 96375; 99285

== ENCOUNTER 2023-11-17 20:09 | Emergency (ER) | payer OTHER ==
[2023-11-17] MEDS ORDERED: LIDOCAINE 1% MPF 2 ML AMPULE ONE (20:40)
[2023-11-17] MEDS ORDERED: CEFTRIAXONE 1000 MG/VIAL ONE (20:40)
[2023-11-17] MEDS ORDERED: CIPROFLOXACIN HCL 500 MG TAB ONE (20:41)
[2023-11-17] MEDS ORDERED: PHENAZOPYRIDINE 100MG TAB PO ONE (20:41)
--- NOTE | 2023-11-17 20:59 | ER ---
Nurse's Notes [facility] Name: Marjan Kolb Age: 68 yrs Sex: Female : 1955 Arrival Date: 11/17/2023 Time: 20:09 Bed 12 Private MD: Diagnosis: UTI/ Urinary tract infection, site not specified;Dysuria Presentation: 11/16 20:17 Chief complaint: Patient states: Burning with urination onset today. Pt denies any cm10 fevers. Coronavirus screen: Client denies travel out of the [place] in the last 14 days. At this time, the client does not indicate any symptoms associated with coronavirus-19. Ebola Screen: Patient denies travel to an Ebola-affected area in the 21 days before illness onset. No symptoms or risks identified at this time. Initial Sepsis Screen: Does the patient meet any 2 criteria? No. Patient's initial sepsis screen is negative. Does the patient have a suspected source of infection? No. Patient's initial sepsis screen is negative. Risk Assessment: Do you want to hurt yourself or someone else? Patient reports no desire to harm self or others. Onset of symptoms was November 17, 2023. 20:17 Method Of Arrival: EMS: [facility] cm10 20:17 Acuity: BLAYNE 3 cm10 Triage Assessment: 20:23 General: Appears in no apparent distress. comfortable, Behavior is calm, cooperative. cm10 Pain: Complains of pain in Burning with urination. Neuro: No deficits noted. Level of Consciousness is awake, alert, obeys commands, Oriented to person, place, time, situation, Appropriate for age. Respiratory: No deficits noted. Airway is patent Respiratory effort is even, unlabored, Respiratory pattern is regular, symmetrical. Historical: - Allergies: 20:18 Azithromycin; cm10 20:18 Bactrim; cm10 20:18 butorphanol; cm10 20:18 Fentanyl; cm10 20:18 Reglan; cm10 20:18 Sulfa (Sulfonamide Antibiotics); cm10 20:18 TRIMETHOPRIM; cm10 - Home Meds: 20:18 hydralazine 50 mg Oral tablet [Active]; metoprolol tartrate 100 mg oral tablet 2 times cm10 per day [Active]; aspirin 81 mg oral tablet,chewable daily [Active]; Klonopin 0.5 mg Oral tablet 2 times per day [Active]; furosemide 40 mg Oral tablet 1 tab daily [Active]; sertraline 100 mg oral tablet 1 tab daily [Active]; Descovy 200-25 mg oral tablet 1 tab daily [Active]; trazodone 50 mg Oral tablet every day at bedtime [Active]; buspirone 30 mg Oral tablet 1 tab 2 times per day [Active]; Buspirone Oral [Active]; bupropion HCl 150 mg Oral Tablet, Extended Release 24 hr daily [Active]; isosorbide mononitrate 30 mg Oral Tablet, Extended Release 24 hr 1 tab daily [Active]; Verquvo 10 mg oral tablet 1 tab daily [Active]; clonazepam 0.5 mg Oral tablet daily [Active]; - PMHx: 20:18 angina pectoris; Anxiety; Atrial fibrillation; Bipolar disorder; COPD (Unknown); cm10 esophageal varicies; Hepatitis; HIV positive; Hypertensive disorder; Migraine; panic attack; - PSHx: 20:18 Appendectomy; Cholecystectomy; cm10 - Immunization history:: Adult Immunizations up to date. - Infectious Disease History:: Denies. - Social history:: Smoking status: Patient denies any tobacco usage or history of. - Family history:: not pertinent. Screenin:13 [facility] ED Fall Risk Assessment (Adult) History of falling in the last 3 months, tl4 including since admission No falls in past 3 months (0 pts) Confusion or Disorientation No (0 pts) Intoxicated or Sedated No (0 pts) Impaired Gait No (0 pts) Mobility Assist Device Used No (0 pt) Altered Elimination No (0 pt) Score/Fall Risk Level 0 - 2 = Low Risk Oriented to surroundings, Maintained a safe environment, Educated pt \T\ family on fall prevention, incl call for assistance when getting out of bed, Assessed \T\ reinforced patient's understanding of fall precautions. Abuse screen: Denies injuries from another. Nutritional screening: No deficits noted. Tuberculosis screening: No symptoms or risk factors identified. Assessment: 21:10 General: Appears in no apparent distress. Behavior is calm, cooperative. Pain: tl4 Complains of pain in abdomen. Neuro: Level of Consciousness is awake, alert, obeys commands, Oriented to person, place, time, situation, Moves all extremities. Full function Gait is steady, Speech is normal. Cardiovascular: Capillary refill < 3 seconds Patient's skin is warm and dry. Respiratory: Airway is patent Respiratory effort is even, unlabored, Respiratory pattern is regular, symmetrical, Breath sounds are clear bilaterally. GI: No signs and/or symptoms were reported involving the gastrointestinal system. : Reports burning with urination, incontinence, pain in suprapubic area urgency, urinary frequency. EENT: No signs and/or symptoms were reported regarding the EENT system. Derm: No signs and/or symptoms reported regarding the dermatologic system. Musculoskeletal: No signs and/or symptoms reported regarding the musculoskeletal system. Vital Signs: 20:17 BP 188 / 82; Pulse 57; Resp 18; Temp 97.6; Pulse Ox 96% on R/A; Weight 81.19 kg; Height cm10 5 ft. 4 in. ; Pain 10/10; 21:12 BP 162 / 75; Pulse 62; Resp 18; Temp 98.1(O); Pulse Ox 98% on R/A; tl4 20:17 Body Mass Index 30.72 (81.19 kg, 162.56 cm) cm10 20:17 Pain Scale: Adult cm10 ED Course: 20:12 Patient arrived in ED. gm2 20:12 Justus Kolb MD is Attending Physician. thomas 20:18 Triage completed. cm10 20:24 Arm band placed on Patient placed in an exam room, on a stretcher. cm10 20:38 Arron Mondragon, RN is Primary Nurse. tl4 20:59 Urine Culture Sent. tl4 20:59 Urinalysis w/ reflexes Sent. tl4 21:14 Patient has correct armband on for positive identification. Bed in low position. Call tl4 light in reach. Side rails up X 1. Provided Education on: ed process, call jimenez. Door closed. Noise minimized. Moved to private room. Warm blanket given. 21:21 No provider procedures requiring assistance completed. Patient did not have IV access tl4 during this emergency room visit. Administered Medications: 20:44 Drug: Rocephin (cefTRIAXone) IM 1 grams IM once {Note: mixed with 2.1 mL Lidocaine.} tl4 Route: IM; Site: left ventrogluteal; 21:15 Follow up: Response: No adverse reaction tl4 20:45 Drug: Ciprofloxacin PO 500 mg PO once Route: PO; tl4 21:15 Follow up: Response: No adverse reaction tl4 20:47 Drug: Phenazopyridine PO 200 mg PO once Route: PO; tl4 21:15 Follow up: Response: No adverse reaction tl4 Medication: 21:21 VIS not applicable for this client. tl4 Outcome: 20:58 Discharge ordered by MD. guzman 21:15 Discharged to home ambulatory, tl4 21:15 Condition: stable 21:15 Discharge instructions given to patient, Instructed on discharge instructions, follow up and referral plans. medication usage, Demonstrated understanding of instructions, follow-up care, medications, Prescriptions given X 3, 21:22 Patient left the ED. tl4 Addendum: 11/20/2023 07:46 Addendum: Culture Results: Positive urine culture. No further action required. Bacteria e b sensitive to prescribed antibiotic. Signatures: Jsutus Kolb MD MD cha Botello, Elizabeth eb Martinez, Clarissa RN RN cm10 Karyn Philippe gm2 Arron Mondragon RN RN tl4
--- NOTE | 2023-11-17 20:59 | EDPHYS ---
Physician Documentation [facility] Name: Marjan Kolb Age: 68 yrs Sex: Female : 1955 Arrival Date: 11/17/2023 Time: 20:09 Bed 12 Private MD: Justus Cervantes HPI: 11/16 20:49 This 68 yrs old Female presents to ER via EMS with complaints of Pain With thomas Urination. 20:49 The patient presents with urinary symptoms, dysuria, frequency, hesitancy, urgency. thomas Onset: The symptoms/episode began/occurred 2 day(s) ago. Modifying factors: The symptoms are alleviated by nothing, the symptoms are aggravated by nothing. Associated signs and symptoms: Pertinent positives: dysuria. Severity of symptoms: At their worst the symptoms were mild, in the emergency department the symptoms are unchanged. The patient is sexually active. The patient has experienced similar episodes in the past, a few times. Historical: - Allergies: 20:18 Azithromycin; cm10 20:18 Bactrim; cm10 20:18 butorphanol; cm10 20:18 Fentanyl; cm10 20:18 Reglan; cm10 20:18 Sulfa (Sulfonamide Antibiotics); cm10 20:18 TRIMETHOPRIM; cm10 - Home Meds: 20:18 hydralazine 50 mg Oral tablet [Active]; metoprolol tartrate 100 mg oral tablet 2 times cm10 per day [Active]; aspirin 81 mg oral tablet,chewable daily [Active]; Klonopin 0.5 mg Oral tablet 2 times per day [Active]; furosemide 40 mg Oral tablet 1 tab daily [Active]; sertraline 100 mg oral tablet 1 tab daily [Active]; Descovy 200-25 mg oral tablet 1 tab daily [Active]; trazodone 50 mg Oral tablet every day at bedtime [Active]; buspirone 30 mg Oral tablet 1 tab 2 times per day [Active]; Buspirone Oral [Active]; bupropion HCl 150 mg Oral Tablet, Extended Release 24 hr daily [Active]; isosorbide mononitrate 30 mg Oral Tablet, Extended Release 24 hr 1 tab daily [Active]; Verquvo 10 mg oral tablet 1 tab daily [Active]; clonazepam 0.5 mg Oral tablet daily [Active]; - PMHx: 20:18 angina pectoris; Anxiety; Atrial fibrillation; Bipolar disorder; COPD (Unknown); cm10 esophageal varicies; Hepatitis; HIV positive; Hypertensive disorder; Migraine; panic attack; - PSHx: 20:18 Appendectomy; Cholecystectomy; cm10 - Immunization history:: Adult Immunizations up to date. - Infectious Disease History:: Denies. - Social history:: Smoking status: Patient denies any tobacco usage or history of. - Family history:: not pertinent. ROS: 20:49 Constitutional: Negative for fever, chills, and weight loss, Eyes: Negative for injury, thomas pain, redness, and discharge, ENT: Negative for injury, pain, and discharge, Neck: Negative for injury, pain, and swelling, Cardiovascular: Negative for chest pain, palpitations, and edema, Respiratory: Negative for shortness of breath, cough, wheezing, and pleuritic chest pain, Abdomen/GI: Negative for abdominal pain, nausea, vomiting, diarrhea, and constipation, Back: Negative for injury and pain, MS/Extremity: Negative for injury and deformity, Skin: Negative for injury, rash, and discoloration, Neuro: Negative for headache, weakness, numbness, tingling, and seizure, Psych: Negative for depression, anxiety, suicide ideation, homicidal ideation, and hallucinations, Allergy/Immunology: Negative for hives, rash, and allergies, Endocrine: Negative for neck swelling, polydipsia, polyuria, polyphagia, and marked weight changes, Hematologic/Lymphatic: Negative for swollen nodes, abnormal bleeding, and unusual bruising, 20:49 : Positive for urinary symptoms, pelvic pain, burning with urination, difficulty urinating, foul smelling urine, Exam: 20:49 Constitutional: This is a well developed, well nourished patient who is awake, alert, thomas and in no acute distress. Head/Face: Normocephalic, atraumatic. Eyes: Pupils equal round and reactive to light, extra-ocular motions intact. Lids and lashes normal. Conjunctiva and sclera are non-icteric and not injected. Cornea within normal limits. Periorbital areas with no swelling, redness, or edema. ENT: Nares patent. No nasal discharge, no septal abnormalities noted. Tympanic membranes are normal and external auditory canals are clear. Oropharynx with no redness, swelling, or masses, exudates, or evidence of obstruction, uvula midline. Mucous membranes moist. Neck: Trachea midline, no thyromegaly or masses palpated, and no cervical lymphadenopathy. Supple, full range of motion without nuchal rigidity, or vertebral point tenderness. No Meningismus. Chest/axilla: Normal chest wall appearance and motion. Nontender with no deformity. No lesions are appreciated. Cardiovascular: Regular rate and rhythm with a normal S1 and S2. No gallops, murmurs, or rubs. Normal PMI, no JVD. No pulse deficits. Respiratory: Lungs have equal breath sounds bilaterally, clear to auscultation and percussion. No rales, rhonchi or wheezes noted. No increased work of breathing, no retractions or nasal flaring. Abdomen/GI: Soft, non-tender, with normal bowel sounds. No distension or tympany. No guarding or rebound. No evidence of tenderness throughout. Back: No spinal tenderness. No costovertebral tenderness. Full range of motion. Female : Normal external genitalia. Skin: Warm, dry with normal turgor. Normal color with no rashes, no lesions, and no evidence of cellulitis. MS/ Extremity: Pulses equal, no cyanosis. Neurovascular intact. Full, normal range of motion. Neuro: Awake and alert, GCS 15, oriented to person, place, time, and situation. Cranial nerves II-XII grossly intact. Motor strength 5/5 in all extremities. Sensory grossly intact. Cerebellar exam normal. Normal gait. Psych: Awake, alert, with orientation to person, place and time. Behavior, mood, and affect are within normal limits. 20:49 Back: ROM is normal, normal spinal alignment noted, CVA tenderness, is absent, vertebral tenderness, is not appreciated, muscle spasm, is not present, 20:49 : CVA tenderness, is absent, Bladder: is normal, non-distended, Vital Signs: 20:17 BP 188 / 82; Pulse 57; Resp 18; Temp 97.6; Pulse Ox 96% on R/A; Weight 81.19 kg; Height cm10 5 ft. 4 in. ; Pain 10/10; 21:12 BP 162 / 75; Pulse 62; Resp 18; Temp 98.1(O); Pulse Ox 98% on R/A; tl4 20:17 Body Mass Index 30.72 (81.19 kg, 162.56 cm) cm10 20:17 Pain Scale: Adult cm10 MDM: 20:13 Patient medically screened. thomas 20:55 Differential diagnosis: kidney stone, urinary tract infection, vaginosis. Data [facility] reviewed: vital signs, nurses notes, lab test result(s), urinalysis, bacteruria. Consideration of Admission/Observation Escalation of care including admission/observation considered. I considered the following discharge prescriptions or medication management in the emergency department Medications were administered in the Emergency Department. See MAR. Test considered but Not performed: Labs: no labs. Historians other than the Patient: EMS: ems well informed. Care significantly affected by the following chronic conditions: Chronic Obstructive Pulmonary Disease, Obesity, cad, hiv, a fib, varices. Counseling: I had a detailed discussion with the patient and/or guardian regarding the historical points, exam findings, and any diagnostic results supporting the discharge/admit diagnosis, lab results, the need for outpatient follow up, for definitive care, a family practitioner. 11/16 20:13 Order name: Urinalysis w/ reflexes [facility] 11/16 20:13 Order name: Urine Culture thomas Administered Medications: 20:44 Drug: Rocephin (cefTRIAXone) IM 1 grams IM once {Note: mixed with 2.1 mL Lidocaine.} tl4 Route: IM; Site: left ventrogluteal; 21:15 Follow up: Response: No adverse reaction tl4 20:45 Drug: Ciprofloxacin PO 500 mg PO once Route: PO; tl4 21:15 Follow up: Response: No adverse reaction tl4 20:47 Drug: Phenazopyridine PO 200 mg PO once Route: PO; tl4 21:15 Follow up: Response: No adverse reaction tl4 Disposition Summary: 11/17/23 20:58 Discharge Ordered Notes: Location: Home thomas Problem: new thomas Symptoms: have improved thomas Condition: Stable thomas Diagnosis - UTI/ Urinary tract infection, site not specified thomas - Dysuria thomas Followup: thomas - With: Private Physician - When: 2 - 3 days - Reason: Recheck today's complaints, Re-evaluation by your physician Discharge Instructions: - Discharge Summary Sheet thomas - Dysuria thomas - Urinary Tract Infection, Adult thomas - Urinary Tract Infection, Adult, [id number] thomas Forms: - Medication Reconciliation Form thomas - Antibiotic Education thomas - Prescription Opioid Use thomas - Patient Portal Instructions thomas - Leadership Thank You Letter thomas Prescriptions: - cefdinir 300 mg Oral capsule - take 1 capsule ORAL route 2 times per day for 3 days; 6 capsule; Refills: 0, [facility] Product Selection Permitted - Cipro 250 mg Oral tablet - take 1 tablet ORAL route every 12 hours; 15 tablet; Refills: 0, Product [facility] Selection Permitted - Pyridium 200 mg Oral Tablet - take 1 tablet ORAL route every 8 hours for 3 days; 9 tablet; Refills: 0, [facility] Product Selection Permitted Signatures: Dispatcher [employer] EDJustus Perrin MD MD cha Martinez, Clarissa RN RN cm10 Arron Mondragon RN RN tl4 Corrections: (The following items were deleted from the chart) 20:13 20:13 Urinalysis+U.LAB.BRZ ordered. EDMS EDMS 20:13 20:13 Urine Culture+BA.LAB.BRZ ordered. EDMS EDMS
[2023-11-17 21:22] LABS: Specific Gravity 1.023 (1.005-1.030); Sqamous Epithelial None Seen /HPF (None Seen); Urine Bacteria None Seen /HPF (<20); Urine Bilirubin NEGATIVE (Negative); Urine Blood Negative (Negative); Urine Clarity Extremely Turbid (Clear); Urine Color Yellow (Yellow); Urine Crystals Unidentified Few /HPF (None Seen); Urine Culture Reflex Order REFLEXED; Urine Glucose NEGATIVE (Negative); Urine Ketones NEGATIVE (Negative); Urine Microscopic Reflex YN ORDER UMIC; Urine Mucus Slight /HPF (None Seen); Urine Nitrite NEGATIVE (Negative); Urine Protein TRACE (Negative); Urine RBC <5 /HPF (None Seen); Urine Urobilinogen Normal (Normal); Urine WBC >50 /HPF (<5); Urine pH 5.5 (5.0-7.0)
[2023-11-17 21:38] VITALS: BP 162/75; TEMP 98.1; O2SAT 98
== END 2023-11-17 21:22 | disposition home or self-care (01) ==
LOC: ER 20:09
DX: N39.0 Urinary tract infection, site not specified (principal); I48.91 Unspecified atrial fibrillation; I10 Essential (primary) hypertension; J44.9 Chronic obstructive pulmonary disease, unspecified; F31.9 Bipolar disorder, unspecified; Z21 Asymptomatic human immunodeficiency virus [HIV] infection status; Z79.899 Other long term (current) drug therapy; Z88.2 Allergy status to sulfonamides; Z88.8 Allergy status to other drugs, medicaments and biological substances; Z88.5 Allergy status to narcotic agent
CPT/HCPCS: 87088; 81001; 87086; 96372; 99284; J0696; 87077; 87186

== ENCOUNTER 2023-11-22 04:19 | Emergency (ER) | payer OTHER ==
[2023-11-22] MEDS ORDERED: ACETAMINOPHEN 500 MG TAB ONE (04:46)
[2023-11-22] MEDS ORDERED: ONDANSETRON 4 MG (ODT) TAB ONE (04:46)
--- NOTE | 2023-11-22 06:16 | EDPHYS ---
Physician Documentation [facility] Name: Marjan Kolb Age: 68 yrs Sex: Female : 1955 Arrival Date: 11/22/2023 Time: 04:19 Bed 7 Private MD: ED Physician Dion Randhawa HPI: 11/21 04:40 This 68 yrs old Female presents to ER via EMS with complaints of Head Injury sp4 With LOC-Adult. 06:54 Six 8-year-old female reports acute headache after a fall at home associated with right sp4 wrist contusion associated with right wrist skin tear. Patient has moderate to heavy intoxicated on arrival.. Historical: - Allergies: 04:35 Azithromycin; bm8 04:35 Bactrim; bm8 04:35 butorphanol; bm8 04:35 Fentanyl; bm8 04:35 Reglan; bm8 04:35 Sulfa (Sulfonamide Antibiotics); bm8 04:35 TRIMETHOPRIM; bm8 - Home Meds: 04:35 aspirin 81 mg Oral tablet daily [Active]; bupropion HCl 150 mg Oral Tablet daily bm8 [Active]; buspirone 30 mg Oral tablet 1 tab 2 times per day [Active]; Buspirone Oral [Active]; clonazepam 0.5 mg Oral tablet daily [Active]; Descovy 200-25 mg Oral tablet 1 tab daily [Active]; furosemide 40 mg Oral tablet 1 tab daily [Active]; hydralazine 50 mg Oral tablet [Active]; isosorbide mononitrate 30 mg Oral Tablet 1 tab daily [Active]; Klonopin 0.5 mg Oral tablet 2 times per day [Active]; metoprolol tartrate 100 mg Oral tablet 2 times per day [Active]; sertraline 100 mg Oral tablet 1 tab daily [Active]; trazodone 50 mg Oral tablet every day at bedtime [Active]; Verquvo 10 mg Oral tablet 1 tab daily [Active]; - PMHx: 04:35 angina pectoris; Anxiety; Atrial fibrillation; Bipolar disorder; COPD (Unknown); bm8 esophageal varicies; Hepatitis; HIV positive; Hypertensive disorder; Migraine; panic attack; Hypertensive disorder; - PSHx: 04:35 Appendectomy; Cholecystectomy; bm8 - Immunization history:: Adult Immunizations unknown. - Infectious Disease History:: HIV. - Social history:: Smoking status: unknown. - Family history:: not pertinent. ROS: 06:54 Constitutional: Negative for fever, chills, and weight loss, sp4 06:54 All other systems are negative, Exam: 06:37 Constitutional: This is a well developed, well nourished patient who is awake, alert, sp4 patient is heavily intoxicated but otherwise not in any distress Head/Face: Normocephalic, atraumatic. Eyes: Pupils equal round and reactive to light, extra-ocular motions intact. Lids and lashes normal. Conjunctiva and sclera are not injected. Cornea within normal limits. Periorbital areas with no swelling, redness, or edema. ENT: Nares patent. No nasal discharge, no septal abnormalities noted. Tympanic membranes are normal and external auditory canals are clear. Oropharynx with no redness, swelling, or masses, exudates, or evidence of obstruction, uvula midline. Mucous membranes moist. Neck: Trachea midline, no thyromegaly or masses palpated, and no cervical lymphadenopathy. Supple, full range of motion without nuchal rigidity, or vertebral point tenderness. Chest/axilla: Normal chest wall appearance and motion. Nontender with no deformity. No lesions are appreciated. Cardiovascular: Regular rate and rhythm with a normal S1 and S2. No gallops, murmurs, or rubs. Normal PMI, no JVD. No pulse deficits. Respiratory: Lungs have equal breath sounds bilaterally, clear to auscultation and percussion. No rales, rhonchi or wheezes noted. No increased work of breathing, no retractions or nasal flaring. Abdomen/GI: Soft, with normal bowel sounds. No distension or tympany. No guarding or rebound. No evidence of tenderness throughout. Back: No spinal tenderness. No costovertebral tenderness. Skin: Warm, dry with normal turgor. Normal color with no rashes, no lesions, and no evidence of cellulitis. MS/ Extremity: Pulses equal, no cyanosis. Neurovascular intact. Full, normal range of motion. Positive small skin tear right wrist ulnar side Neuro: Awake and alert, GCS 15, oriented to person, place, Cranial nerves II-XII grossly intact. Motor strength 5/5 in all extremities. Sensory grossly intact. Intoxication limits exam 06:56 ECG was reviewed by the Attending Physician. EKG 0 440 sinus bradycardia sp4 first-degree AV block. Sinus bradycardia rate 56 prolonged QT. Left ventricular hypertrophy. Vital Signs: 04:28 BP 175 / 102; Pulse 58; Resp 17; Temp 98.5; Pulse Ox 97% on R/A; Weight 74.84 kg; bm8 Height 5 ft. 4 in. ; Pain 9/10; 05:28 BP 118 / 88; Pulse 81; Resp 17; Temp 98.5; Pulse Ox 97% on R/A; Pain 0/10; bm8 06:12 BP 129 / 84; Pulse 89; Resp 17; Temp 98; Pulse Ox 97% on R/A; Pain 3/10; rg5 06:16 BP 129 / 83; Pulse 86; Resp 16; Temp 98; Pulse Ox 98% on R/A; Pain 0/10; bm8 04:28 Body Mass Index 28.32 (74.84 kg, 162.56 cm) bm8 04:28 Pain Scale: Adult bm8 05:28 Pain Scale: Adult bm8 06:12 Pain Scale: Adult rg5 06:16 Pain Scale: Adult bm8 NIH Stroke Scale Scores: 06:37 NIHSS Score: 0 sp4 [place] Coma Score: 04:42 Eye Response: spontaneous(4). Motor Response: obeys commands(6). Verbal Response: bm8 oriented(5). Total: 15. 06:16 Eye Response: spontaneous(4). Motor Response: obeys commands(6). Verbal Response: bm8 oriented(5). Total: 15. 06:37 Eye Response: spontaneous(4). Motor Response: obeys commands(6). Verbal Response: sp4 oriented(5). Total: 15. 06:39 Eye Response: spontaneous(4). Motor Response: obeys commands(6). Verbal Response: sp4 oriented(5). Total: 15. MDM: 04:41 Patient medically screened. sp4 06:13 ED course: CLINICAL HISTORY: pain ! COMPARISON: None. TECHNIQUE: XR WRIST 1-2 VIEWS sp4 RIGHT 11/22/2023 4:47 AM CDT FINDINGS: There is an old fracture of the ulnar styloid process. There is plate and screw fixation of the distal radius. Joint spaces are preserved. There is diffuse soft tissue swelling surrounding the distal forearm. IMPRESSION: No acute osseous findings. Electronically signed by: Giovani Guerra MD 11/22/2023 05:21 AM CD. ED course: CLINICAL HISTORY: head injury COMPARISON: None. TECHNIQUE: CT HEAD AND CERVICAL SPINE WITHOUT CONTRAST on 11/22/2023 4:41 AM CDT This exam was performed according to our departmental dose-optimization program, which includes automated exposure control, adjustment of the mA and/or kV according to patient size and/or use of iterative reconstruction technique. FINDINGS: Brain: There is no acute hemorrhage, mass effect or midline shift. Mendoza-white differentiation is preserved. There is no hydrocephalus. There is no significant volume loss for age. The calvarium is intact. Orbits and globes are unremarkable. The paranasal sinuses are clear. Mastoid air cells are clear. Cervical Spine: There is no acute fracture. Alignment is anatomic. There is mild left-sided and moderate right-sided facet arthritis. There is mild narrowing of the C5-6 disc with moderate narrowing at C6-7. Vertebral body heights are preserved. Soft tissues are unremarkable. IMPRESSION: No acute postraumatic findings. Electronically signed by: Giovani Guerra MD 11/22/2023 05:48 AM. 06:39 Differential diagnosis: Contusion of Hematoma on Laceration of Intracranial bleed- sp4 Concussion cerebral contusion. Data reviewed: vital signs, nurses notes, old medical records, radiologic studies, CT scan, plain films. 06:57 ED course: CT negative patient stable for discharge home. sp4 11/21 04:41 Order name: CT Head C Spine sp4 11/21 04:47 Order name: Wrist Right 2 View XRAY sp4 07 04:40 Order name: Wound Care: dressing change; Complete Time: 04:57 sp4 EC:56 Rate is 56 beats/min. Rhythm is regular, Sinus bradycardia. QRS [place] is Normal. CA sp4 interval is normal. QRS interval is normal. QT interval is prolonged. No Q waves. T waves are Normal. No ST changes noted. Clinical impression: No evidence of ischemia. Interpreted by me. Reviewed by me. Administered Medications: 04:55 Drug: Ondansetron PO 4 mg PO once Route: PO; bm8 06:18 Follow up: Response: No adverse reaction bm8 04:55 Drug: Acetaminophen PO 1000 mg PO once Route: PO; bm8 06:18 Follow up: Response: No adverse reaction bm8 Disposition Summary: 11/22/23 06:15 Discharge Ordered Notes: Location: Home sp4 Problem: new sp4 Symptoms: have improved sp4 Condition: Stable sp4 Diagnosis - Repeated falls sp4 - Acute fall, acute head injury, alcohol intoxication, right wrist skin tear, Acute sp4 Right wrist contusion Followup: sp4 - With: Private Physician - When: 7 - 10 days - Reason: Recheck today's complaints Discharge Instructions: - Discharge Summary Sheet sp4 - Fall Prevention in the Home, Adult, [id number] sp4 Forms: - Patient Portal Instructions sp4 NIH Stroke Scale - NIH Stroke Score Date: 11/22/2023 Time: 06:37 Total Score = 0 10. Dysarthria (speech clarity - read or repeat words) - 0(Normal) 11. Extinction and Inattention (visual/tactile/auditory/spatial/personal) - 0(No abnormality) 1a. Level of Consciousness (LOC) - 0(Alert) 1b. Level of Consciousness (LOC) (Month \T\ Age) - 0(Both) 1c. LOC Commands (Open \T\ Closes Eyes/Military Science Teacher) - 0(Both) 2. Best Gaze (Lateral Gaze Paresis) - 0(Normal) 3. Visual Field Loss - 0(No visual loss) 4. Facial Palsy - 0(Normal) 5a. Left Arm: Motor (10-second hold) - 0(No drift) 5b. Right Arm: Motor (10-second hold) - 0(No drift) 6a. Left Leg: Motor (5-second hold - always test supine) - 0(No drift) 6b. Right Leg: Motor (5-second hold - always test supine) - 0(No drift) 7. Limb Ataxia (finger/nose \T\ heel/sanchez - test with eyes open) - 0(Absent) 8. Sensory Loss (pinprick arms/legs/face) - 0(Normal) 9. Best Language: Aphasia (description/naming/reading) - 0(No aphasia) Initials: sp4 Signatures: Dispatcher [employer] Dion Dutta MD MD sp4 Riaz Lafleur RN RN bm8
--- NOTE | 2023-11-22 06:16 | ER ---
Nurse's Notes [facility] Name: Marjan Kolb Age: 68 yrs Sex: Female : 1955 Arrival Date: 11/22/2023 Time: 04:19 Bed 7 Private MD: Diagnosis: Repeated falls;Acute fall, acute head injury, alcohol intoxication, right wrist skin tear, Acute Right wrist contusion Presentation: 11/21 04:28 Chief complaint: Patient states: I got hit on the back of the head and shoulder after a bm8 mirror fell on me. EMS states: pt had skin tear to right wrist, minor we cleaned and bandaged it. She said that she had 8 beers and hasn't drank in over two years. she got up to go to restroom bumped into a mirror that was just there and it fell and hit her on the back of the head and shoulders causing her to lose consciousness. Coronavirus screen: At this time, the client does not indicate any symptoms associated with coronavirus-19. Ebola Screen: Patient negative for fever greater than or equal to 101.5 degrees Fahrenheit, and additional compatible Ebola Virus Disease symptoms Patient denies exposure to infectious person. Patient denies travel to an Ebola-affected area in the 21 days before illness onset. No symptoms or risks identified at this time. Initial Sepsis Screen: Does the patient meet any 2 criteria? No. Patient's initial sepsis screen is negative. Does the patient have a suspected source of infection? No. Patient's initial sepsis screen is negative. Risk Assessment: Do you want to hurt yourself or someone else? Patient reports no desire to harm self or others. Onset of symptoms is unknown. 04:28 Method Of Arrival: EMS: [facility] bm8 04:28 Acuity: BLAYNE 3 bm8 Triage Assessment: 04:35 General: Appears in no apparent distress. uncomfortable, unkempt, Behavior is bm8 cooperative, drowsy. Pain: Complains of pain in back of head and shoulders Pain currently is 9 out of 10 on a pain scale. EENT: No deficits noted. No signs and/or symptoms were reported regarding the EENT system. Neuro: No deficits noted. Level of Consciousness is awake, alert, obeys commands, Oriented to person, place, time, situation, Appropriate for age. Cardiovascular: No deficits noted. Capillary refill < 3 seconds Patient's skin is warm and dry. Respiratory: Airway is patent Respiratory effort is even, unlabored, Respiratory pattern is regular, symmetrical. Musculoskeletal: Circulation, motion, and sensation intact. Range of motion: intact in all extremities, Reports pain in left scapular area and right scapular area. 04:35 Injury Description: skin tear to right wrist. bm8 Historical: - Allergies: 04:35 Azithromycin; bm8 04:35 Bactrim; bm8 04:35 butorphanol; bm8 04:35 Fentanyl; bm8 04:35 Reglan; bm8 04:35 Sulfa (Sulfonamide Antibiotics); bm8 04:35 TRIMETHOPRIM; bm8 - Home Meds: 04:35 aspirin 81 mg Oral tablet daily [Active]; bupropion HCl 150 mg Oral Tablet daily bm8 [Active]; buspirone 30 mg Oral tablet 1 tab 2 times per day [Active]; Buspirone Oral [Active]; clonazepam 0.5 mg Oral tablet daily [Active]; Descovy 200-25 mg Oral tablet 1 tab daily [Active]; furosemide 40 mg Oral tablet 1 tab daily [Active]; hydralazine 50 mg Oral tablet [Active]; isosorbide mononitrate 30 mg Oral Tablet 1 tab daily [Active]; Klonopin 0.5 mg Oral tablet 2 times per day [Active]; metoprolol tartrate 100 mg Oral tablet 2 times per day [Active]; sertraline 100 mg Oral tablet 1 tab daily [Active]; trazodone 50 mg Oral tablet every day at bedtime [Active]; Verquvo 10 mg Oral tablet 1 tab daily [Active]; - PMHx: 04:35 angina pectoris; Anxiety; Atrial fibrillation; Bipolar disorder; COPD (Unknown); bm8 esophageal varicies; Hepatitis; HIV positive; Hypertensive disorder; Migraine; panic attack; Hypertensive disorder; - PSHx: 04:35 Appendectomy; Cholecystectomy; bm8 - Immunization history:: Adult Immunizations unknown. - Infectious Disease History:: HIV. - Social history:: Smoking status: unknown. - Family history:: not pertinent. Screenin:42 [facility] ED Fall Risk Assessment (Adult) History of falling in the last 3 months, bm8 including since admission No falls in past 3 months (0 pts) Confusion or Disorientation No (0 pts) Intoxicated or Sedated Yes (3 pts) Impaired Gait Yes (1 pt) Mobility Assist Device Used Yes (1 pt) Altered Elimination No (0 pt) Score/Fall Risk Level 0 - 2 = Low Risk Oriented to surroundings, Maintained a safe environment, Educated pt \T\ family on fall prevention, incl call for assistance when getting out of bed, Assessed \T\ reinforced patient's understanding of fall precautions, Provided non-skid footwear, Hourly rounding (assess needs \T\ fall precautionary measures) done, Used ambulatory aids as needed (educated on \T\ assisted with), Used gait belt as appropriate. Abuse screen: Denies threats or abuse. Nutritional screening: No deficits noted. Tuberculosis screening: No symptoms or risk factors identified. Assessment: 04:42 Reassessment: see triage note. bm8 05:28 Reassessment: Patient appears in no apparent distress at this time. Patient and/or bm8 family updated on plan of care and expected duration. Pain level reassessed. Patient is alert, oriented x 3, equal unlabored respirations, skin warm/dry/pink. pt is resting with eyes closed breathing is even unlabored, warm blankets provided. Pt eliminations needs have been met three times since arrival. Pain: Denies pain. Neuro: No deficits noted. Level of Consciousness is alert, obeys commands, easily rousable. Oriented to person, place, time, situation, Appropriate for age Explosive Operator Supervisor are equal bilaterally Moves all extremities. Full function Gait is unsteady. Cardiovascular: No deficits noted. Heart tones S1 S2 present. Cardiovascular: Capillary refill < 3 seconds Patient's skin is warm and dry. Respiratory: Airway is patent Trachea midline Respiratory effort is even, unlabored, Respiratory pattern is regular, symmetrical, Breath sounds are clear bilaterally. GI: No signs and/or symptoms were reported involving the gastrointestinal system. : No signs and/or symptoms were reported regarding the genitourinary system. EENT: No signs and/or symptoms were reported regarding the EENT system. Derm: skin tear has been repaired and bandaged. Musculoskeletal: Denies pain in, scalp and back. 06:16 Reassessment: Patient appears in no apparent distress at this time. No changes from bm8 previously documented assessment. Patient and/or family updated on plan of care and expected duration. Pain level reassessed. Patient is alert, oriented x 3, equal unlabored respirations, skin warm/dry/pink. Patient states feeling better. Vital Signs: 04:28 BP 175 / 102; Pulse 58; Resp 17; Temp 98.5; Pulse Ox 97% on R/A; Weight 74.84 kg; bm8 Height 5 ft. 4 in. ; Pain 9/10; 05:28 BP 118 / 88; Pulse 81; Resp 17; Temp 98.5; Pulse Ox 97% on R/A; Pain 0/10; bm8 06:12 BP 129 / 84; Pulse 89; Resp 17; Temp 98; Pulse Ox 97% on R/A; Pain 3/10; rg5 06:16 BP 129 / 83; Pulse 86; Resp 16; Temp 98; Pulse Ox 98% on R/A; Pain 0/10; bm8 04:28 Body Mass Index 28.32 (74.84 kg, 162.56 cm) bm8 04:28 Pain Scale: Adult bm8 05:28 Pain Scale: Adult bm8 06:12 Pain Scale: Adult rg5 06:16 Pain Scale: Adult bm8 [place] Coma Score: 04:42 Eye Response: spontaneous(4). Motor Response: obeys commands(6). Verbal Response: bm8 oriented(5). Total: 15. 06:16 Eye Response: spontaneous(4). Motor Response: obeys commands(6). Verbal Response: bm8 oriented(5). Total: 15. 06:37 Eye Response: spontaneous(4). Motor Response: obeys commands(6). Verbal Response: sp4 oriented(5). Total: 15. 06:39 Eye Response: spontaneous(4). Motor Response: obeys commands(6). Verbal Response: sp4 oriented(5). Total: 15. NIH Stroke Scale Scores: 06:37 NIHSS Score: 0 sp4 ED Course: 04:27 Patient arrived in ED. bm8 04:28 Riaz Lafleur, RN is Primary Nurse. bm8 04:35 Triage completed. bm8 04:35 Arm band placed on left wrist. bm8 04:40 Dion Randhawa MD is Attending Physician. sp4 04:42 Patient has correct armband on for positive identification. Bed in low position. Call bm8 light in reach. Side rails up X2. Client placed on continuous cardiac and pulse oximetry monitoring. NIBP monitoring applied. Pulse ox on. NIBP on. Door closed. Noise minimized. Warm blanket given. Verbal reassurance given. 04:42 No provider procedures requiring assistance completed. bm8 05:05 Wrist Right 2 View XRAY In Process Unspecified. EDMS 05:10 CT Head C Spine In Process Unspecified. EDMS 05:28 Assisted to bedside commode. x3 since arrival to now. bm8 05:28 Wound care: to skin tear located on right wrist was cleaned with soap and water, bm8 dressed with Neosporin, 4X4s, Kerlix, Patient tolerated well. 06:12 EKG completed in triage. Results shown to MD. rg5 06:16 Awaiting transportation. bm8 06:16 Provided Education on: post er care, wound care. bm8 06:16 Patient did not have IV access during this emergency room visit. bm8 Administered Medications: 04:55 Drug: Ondansetron PO 4 mg PO once Route: PO; bm8 06:18 Follow up: Response: No adverse reaction bm8 04:55 Drug: Acetaminophen PO 1000 mg PO once Route: PO; bm8 06:18 Follow up: Response: No adverse reaction bm8 Medication: 04:42 VIS not applicable for this client. bm8 Outcome: 06:15 Discharge ordered by . sp4 06:16 Discharged to home via wheelchair, bm8 06:16 Condition: stable 06:16 Discharge instructions given to patient, Instructed on discharge instructions, follow up and referral plans. no drinking with medication, no driving heavy equipment, safety practices, wound care, Demonstrated understanding of instructions, follow-up care, medications, 06:29 Patient left the ED. bm8 NIH Stroke Scale - NIH Stroke Score Date: 11/22/2023 Time: 06:37 Total Score = 0 10. Dysarthria (speech clarity - read or repeat words) - 0(Normal) 11. Extinction and Inattention (visual/tactile/auditory/spatial/personal) - 0(No abnormality) 1a. Level of Consciousness (LOC) - 0(Alert) 1b. Level of Consciousness (LOC) (Month \T\ Age) - 0(Both) 1c. LOC Commands (Open \T\ Closes Eyes/Wood Dowel Machine Operator) - 0(Both) 2. Best Gaze (Lateral Gaze Paresis) - 0(Normal) 3. Visual Field Loss - 0(No visual loss) 4. Facial Palsy - 0(Normal) 5a. Left Arm: Motor (10-second hold) - 0(No drift) 5b. Right Arm: Motor (10-second hold) - 0(No drift) 6a. Left Leg: Motor (5-second hold - always test supine) - 0(No drift) 6b. Right Leg: Motor (5-second hold - always test supine) - 0(No drift) 7. Limb Ataxia (finger/nose \T\ heel/sanchez - test with eyes open) - 0(Absent) 8. Sensory Loss (pinprick arms/legs/face) - 0(Normal) 9. Best Language: Aphasia (description/naming/reading) - 0(No aphasia) Initials: sp4 Signatures: Dispatcher [employer] Dion Dutta MD MD sp4 Riaz Lafleur, RN RN bm8 Angelo Sanchez RN RN rg5
[2023-11-22 06:36] VITALS: TEMP 98
[2023-11-22 07:00] VITALS: BP 129/83; O2SAT 98
--- NOTE | 2023-11-22 14:32 | EKG ---
Test Date: 2023-11-22 Test Time: 04:40:44 Inspector Mechanical: CHERRI MEASUREMENT RESULTS: Intervals: Rate: 56 MD: 224 QRSD: 98 QT: 550 QTc: 530 [place]: P: 42 MD: 224 QRS: 40 T: -2 INTERPRETIVE STATEMENTS: Sinus bradycardia with 1st degree AV block Left ventricular hypertrophy with repolarization abnormality Prolonged QT Abnormal ECG Compared to ECG 11/16/2023 16:10:16 First degree AV block now present Electronically Signed On 11-22-23 14:31:25 CDT by Mike Lund
--- NOTE | 2023-11-22 15:03 | RAD REPORT ---
EXAM DESCRIPTION: CT - Head C Spine Mpr Wo Con - 11/22/2023 6:25 am CLINICAL HISTORY: Head injury COMPARISON: None. TECHNIQUE: CT HEAD AND CERVICAL SPINE WITHOUT CONTRAST on 11/22/2023 4:41 AM CDT This exam was performed according to our departmental dose-optimization program, which includes autom ated exposure control, adjustment of the mA and/or kV according to patient size and/or use of iterati ve reconstruction technique. FINDINGS: Brain: There is no acute hemorrhage, mass effect or midline shift. Mendoza-white differentiat ion is preserved. There is no hydrocephalus. There is no significant volume loss for age. The calvarium is intact. Orbits and globes are unremarkable. The paranasal sinuses are clear. Mastoid air cells are clear. Cervical Spine: There is no acute fracture. Alignment is anatomic. There is mild left-sided and moder ate right-sided facet arthritis. There is mild narrowing of the C5-6 disc with moderate narrowing at C6-7. Vertebral body heights are preserved. Soft tissues are unremarkable. IMPRESSION: No acute postraumatic findings. Electronically signed by: Giovani Guerra MD 11/22/2023 05:48 AM CDT Due to temporary technical issues with the PACS/Fluency reporting system, reports are being signed by the in house radiologists without review as a courtesy to insure prompt reporting. The interpreting radiologist is fully responsible for the content of the report
--- NOTE | 2023-11-22 15:05 | RAD REPORT ---
EXAM DESCRIPTION: RAD - Wrist Right 2 View - 11/22/2023 5:03 am CLINICAL HISTORY: Pain ! COMPARISON: None. TECHNIQUE: XR WRIST 1-2 VIEWS RIGHT 11/22/2023 4:47 AM CDT FINDINGS: There is an old fracture of the ulnar styloid process. There is plate and screw fixation o f the distal radius. Joint spaces are preserved. There is diffuse soft tissue swelling surrounding the distal forearm. IMPRESSION: No acute osseous findings. Electronically signed by: Giovani Guerra MD 11/22/2023 05:21 AM CDT RP Due to temporary technical issues with the PACS/Fluency reporting system, reports are being signed by the in house radiologists without review as a courtesy to insure prompt reporting. The interpreting radiologist is fully responsible for the content of the report
== END 2023-11-22 06:29 | disposition home or self-care (01) ==
LOC: ER 04:19
DX: S09.90XA Unspecified injury of head, initial encounter (principal); R29.6 Repeated falls; F10.129 Alcohol abuse with intoxication, unspecified; S61.511A Laceration without foreign body of right wrist, initial encounter; S60.211A Contusion of right wrist, initial encounter; W18.30XA Fall on same level, unspecified, initial encounter; Y92.009 Unspecified place in unspecified non-institutional (private) residence as the place of occurrence of the external cause; Z21 Asymptomatic human immunodeficiency virus [HIV] infection status; Z79.82 Long term (current) use of aspirin; Z88.1 Allergy status to other antibiotic agents; Z88.2 Allergy status to sulfonamides; Z88.5 Allergy status to narcotic agent; Z88.8 Allergy status to other drugs, medicaments and biological substances
CPT/HCPCS: 93005; 70450; 72125; 73100; Q0162

== ENCOUNTER 2023-11-27 10:51 | Emergency (ER) | payer OTHER ==
--- NOTE | 2023-11-27 11:50 | RAD REPORT ---
EXAM DESCRIPTION: CT - Head Brain Wo Cont - 11/27/2023 11:37 am CLINICAL HISTORY: Head injury status post fall COMPARISON: November 22, 2023 TECHNIQUE: Computed axial tomography of the head was obtained. IV contrast was not requested. All CT scans are performed using dose optimization technique as appropriate and may include automated exposure control or mA/KV adjustment according to patient size. FINDINGS: An intracranial bleed is not seen The ventricles are normal in caliber No extra-axial fluid collection is noted. Mild to moderate low-density areas within periventricular, deep and subcortical white matter likely r epresent ischemic changes secondary to small vessel disease. Fluid within the sinuses/ mastoids is not seen. IMPRESSION: No acute intracranial abnormality is seen If patient's symptoms persist MRI of the brain would be recommended
[2023-11-27] MEDS ORDERED: KETOROLAC 30 MG/ML INJ ONE (13:57)
[2023-11-27] MEDS ORDERED: DIPHENHYDRAMINE 25 MG TAB/CAP ONE (13:57)
--- NOTE | 2023-11-27 14:35 | ER ---
Nurse's Notes [facility] Name: Marjan Kolb Age: 68 yrs Sex: Female : 1955 Arrival Date: 11/27/2023 Time: 10:51 Bed 7 Private MD: Diagnosis: Postconcussional syndrome Presentation: 11/26 11:04 Chief complaint: EMS states: Fell three days ago and hit head, was seen in ED but ph states no imaging was done, c/o headache in back of head and nausea, took Tylenol w/ no relief, 12.5 Phenergan IM given. Coronavirus screen: Vaccine status: Patient reports receiving the 2nd dose of the covid vaccine. Ebola Screen: No symptoms or risks identified at this time. Initial Sepsis Screen: Does the patient meet any 2 criteria? No. Patient's initial sepsis screen is negative. Does the patient have a suspected source of infection? No. Patient's initial sepsis screen is negative. Risk Assessment: Do you want to hurt yourself or someone else? Patient reports no desire to harm self or others. Onset of symptoms was November 27, 2023. 11:04 Method Of Arrival: EMS: [facility] ph 11:04 Acuity: BLAYNE 3 ph Historical: - Allergies: 11:07 Azithromycin; ph 11:07 Bactrim; ph 11:07 butorphanol; ph 11:07 Fentanyl; ph 11:07 Reglan; ph 11:07 Sulfa (Sulfonamide Antibiotics); ph 11:07 TRIMETHOPRIM; ph - PMHx: 11:07 angina pectoris; Anxiety; Atrial fibrillation; Bipolar disorder; COPD (Unknown); ph esophageal varicies; Hepatitis; HIV positive; Hypertensive disorder; Migraine; panic attack; - PSHx: 11:07 Appendectomy; Cholecystectomy; ph - Immunization history:: Adult Immunizations unknown. - Infectious Disease History:: Denies. - Social history:: Smoking status: Patient/guardian denies using tobacco, Stopped _ months ago 6. Screenin:18 [facility] ED Fall Risk Assessment (Adult) History of falling in the last 3 months, kj2 including since admission No falls in past 3 months (0 pts) Confusion or Disorientation No (0 pts) Intoxicated or Sedated No (0 pts) Impaired Gait No (0 pts) Mobility Assist Device Used Yes (1 pt) Altered Elimination No (0 pt) Score/Fall Risk Level 0 - 2 = Low Risk Maintained a safe environment, Educated pt \T\ family on fall prevention, incl call for assistance when getting out of bed, Hourly rounding (assess needs \T\ fall precautionary measures) done. Abuse screen: Denies threats or abuse. Denies injuries from another. Nutritional screening: No deficits noted. Tuberculosis screening: No symptoms or risk factors identified. Assessment: 14:05 General: Appears uncomfortable, Behavior is calm, cooperative. Pain: Complains of pain kj2 in headache Pain currently is 8 out of 10 on a pain scale. 14:07 Neuro: Level of Consciousness is awake, alert, obeys commands, Oriented to person, kj2 place, time, situation, Denies blurred vision dizziness. Cardiovascular: No deficits noted. Patient's skin is warm and dry. Respiratory: No deficits noted. Airway is patent. GI: Reports nausea. Vital Signs: 11:04 BP 188 / 95; Pulse 60; Resp 18; Temp 97.7; Pulse Ox 95% on R/A; Weight 67.13 kg; Height ph 5 ft. 4 in. ; 14:09 BP 168 / 102; Pulse 64; Resp 12; Temp 98.5; Pulse Ox 98% on R/A; kj2 11:04 Body Mass Index 25.40 (67.13 kg, 162.56 cm) ph ED Course: 10:54 Patient arrived in ED. mg5 10:57 Yayo August MD is Attending Physician. ec2 11:07 Triage completed. ph 11:08 Arm band placed on Patient placed in waiting room, Patient notified of wait time. ph 11:38 CT Head Brain wo Cont In Process Unspecified. EDMS 13:49 Inserted saline lock: 22 gauge in right ,using aseptic technique. Ankle. cm10 13:51 Aracely Sims, RN is Primary Nurse. nj1 14:19 Patient has correct armband on for positive identification. Call light in reach. Side kj2 rails up X 1. Provided Education on: call light and fall prevention, medications. 14:22 No provider procedures requiring assistance completed. kj2 14:41 IV discontinued, intact, bleeding controlled, Pressure dressing applied. nj1 Administered Medications: 14:16 Drug: Ketorolac IVP 15 mg IVP once Route: IVP; Site: Other; kj2 14:42 Follow up: Response: No adverse reaction nj1 14:17 Drug: Droperidol IVP 2.5 mg IVP once Route: IVP; Site: Other; kj2 14:43 Follow up: Response: No adverse reaction; Nausea is decreased nj1 14:17 Drug: diphenhydrAMINE PO 50 mg PO once Route: PO; kj2 14:42 Follow up: Response: No adverse reaction nj1 Medication: 14:15 VIS not applicable for this client. kj2 Outcome: 14:35 Discharge ordered by . bradley 14:41 Discharged to home ambulatory, nj1 14:41 Condition: stable 14:41 Discharge instructions given to patient, Instructed on discharge instructions, follow up and referral plans. Demonstrated understanding of instructions, follow-up care, 14:41 Patient left the ED. nj1 Signatures: Dispatcher [employer] Solange Dyer RN RN Aracely Sims RN RN nj1 Anika Simons RN RN 10 Connie Mares 5 Yayo August MD MD ec2 Gayle Sidhu RN RN kj2
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
[2023-11-27 14:54] VITALS: BP 168/102; TEMP 98.5; O2SAT 98
== END 2023-11-27 14:41 | disposition home or self-care (01) ==
LOC: ER 10:51
DX: R51.9 Headache, unspecified (principal); F07.81 Postconcussional syndrome; R11.0 Nausea
CPT/HCPCS: 70450; 96374; 96375; 99284

== ENCOUNTER 2023-12-14 09:01 | Emergency (ER) | payer OTHER ==
[2023-12-14] MEDS ORDERED: HYDRALAZINE HCL 20 MG/ML VIAL ONE (09:11)
[2023-12-14] MEDS ORDERED: HYDROCODONE/APAP 10/325 TAB ONE (09:12)
[2023-12-14 10:11] LABS: Absolute Eosinophils 0.1 K/uL (0-0.5); Absolute Lymphocytes (CBC) 0.8 K/uL (0.7-4.9); Absolute Monocytes 0.5 K/uL (0.1-1.3); Absolute Neutrophil 2.7 K/uL (1.8-8.0); Basophils % 0.6 % (0-1.3); Eosinophils % 2.6 % (0-4.4); Hemoglobin 11.5 g/dL (12.0-15.0); Lymphocytes % 20.1 % (15.3-44.8); MCH 27.9 pg (27.0-35.0); MCV 87.2 fL (80-100); MPV 6.9 fL (7.6-11.3); Monocytes % 11.5 % (3.3-12.3); Neutrophils % 65.2 % (41.7-73.7); Platelets 142 thou/uL (152-406); RBC Red Blood Cell Count 4.12 M/uL (3.86-4.86); Red Cell Distribution Width 16.6 % (12.1-15.2)
--- NOTE | 2023-12-14 10:33 | RAD REPORT ---
EXAM DESCRIPTION: CT - Head Brain Wo Cont - 12/14/2023 9:21 am CLINICAL HISTORY: headache, HTN COMPARISON: Head Brain Wo Cont dated 11/27/2023; Head Brain Wo Cont dated 07/21/2022 TECHNIQUE: Noncontrast head CT images were obtained without IV contrast. Multiplanar reformats were generated and reviewed. All CT scans are performed using dose optimization technique as appropriate and may include automated exposure control or mA/KV adjustment according to patient size. FINDINGS: No intracranial hemorrhage, mass, or edema. Midline structures are unremarkable. Normal ventricular caliber for age. Patchy periventricular and deep white matter hypodensities, nonspecific, most suggestive of chronic s mall vessel ischemic changes. Mendoza-white matter differentiation is preserved, without evidence of acute infarct. No abnormal extra- axial fluid collections. Mastoid air cells and visualized portions of the paranasal sinuses are clear. No acute bony findings. IMPRESSION: No evidence of an acute intracranial process.
[2023-12-14] MEDS ORDERED: MORPHINE 4 MG/ML SYR ONE (10:46)
[2023-12-14 10:57] LABS: Anion Gap 9.7 mEq/L (5.0-15.0); Potassium 3.7 mEq/L (3.5-5.1)
[2023-12-14] MEDS ORDERED: ONDANSETRON 4 MG/2 ML VIAL ONE (11:21)
--- NOTE | 2023-12-14 11:56 | ER ---
Nurse's Notes [facility] Name: Marjan Kolb Age: 68 yrs Sex: Female : 1955 Arrival Date: 12/14/2023 Time: 09:01 Bed 14 Private MD: Diagnosis: Essential (primary) hypertension;Headache Presentation: 12/13 09:05 Chief complaint: Patient states: dizziness, headache, and high blood pressure x1 week. kc6 pt states her meds aren't working. Coronavirus screen: At this time, the client does not indicate any symptoms associated with coronavirus-19. Ebola Screen: No symptoms or risks identified at this time. Initial Sepsis Screen: Does the patient meet any 2 criteria? No. Patient's initial sepsis screen is negative. Does the patient have a suspected source of infection? No. Patient's initial sepsis screen is negative. Risk Assessment: Do you want to hurt yourself or someone else? Patient reports no desire to harm self or others. Onset of symptoms was December 14, 2023. 09:05 Method Of Arrival: EMS: [facility] 09:05 Acuity: BLAYNE 3 6 Triage Assessment: 09:07 Headache History: The patient has had previous headaches and this one is similar to kc6 previous episodes. General: Appears in no apparent distress. comfortable, well groomed, well developed, Behavior is calm, cooperative, appropriate for age. EENT: No signs and/or symptoms were reported regarding the EENT system. Neuro: Level of Consciousness is awake, alert, obeys commands, Oriented to person, place, time, situation, Appropriate for age Reports dizziness, headache occipital area. Cardiovascular: Denies chest pain, shortness of breath, Heart tones S1 S2 present Capillary refill < 3 seconds Rhythm is sinus bradycardia. Respiratory: Airway is patent Trachea midline Respiratory effort is even, unlabored, Respiratory pattern is regular, symmetrical. GI: Reports nausea, Patient currently denies abdominal pain, diarrhea, vomiting. : No signs and/or symptoms were reported regarding the genitourinary system. Derm: No signs and/or symptoms reported regarding the dermatologic system. Skin is fragile, is thin, with poor turgor has skin tears on TYRONE upper extremities Skin is normal. Musculoskeletal: No signs and/or symptoms reported regarding the musculoskeletal system. Circulation, motion, and sensation intact. Capillary refill < 3 seconds, Range of motion: intact in all extremities. Historical: - Allergies: 09:07 Azithromycin; kc6 09:07 Bactrim; kc6 09:07 butorphanol; kc6 09:07 Fentanyl; kc6 09:07 Reglan; kc6 09:07 Sulfa (Sulfonamide Antibiotics); kc6 09:07 TRIMETHOPRIM; kc6 - PMHx: 09:07 angina pectoris; Anxiety; Atrial fibrillation; Bipolar disorder; COPD (Unknown); kc6 esophageal varicies; Hepatitis; HIV positive; Hypertensive disorder; Hypertensive disorder; Migraine; panic attack; - PSHx: 09:07 Appendectomy; Cholecystectomy; kc6 - Immunization history:: Adult Immunizations up to date. - Infectious Disease History:: Denies. - Social history:: Smoking status: Patient reports the use of cigarette tobacco products. - Family history:: not pertinent. - Hospitalizations: : No recent hospitalization is reported. Screenin:09 [facility] ED Fall Risk Assessment (Adult) History of falling in the last 3 months, kc6 including since admission No falls in past 3 months (0 pts) Confusion or Disorientation No (0 pts) Intoxicated or Sedated No (0 pts) Impaired Gait No (0 pts) Mobility Assist Device Used No (0 pt) Altered Elimination No (0 pt) Score/Fall Risk Level 0 - 2 = Low Risk. Abuse screen: Denies threats or abuse. Denies injuries from another. Nutritional screening: No deficits noted. Tuberculosis screening: No symptoms or risk factors identified. Assessment: 09:07 Reassessment: please see triage. kc6 09:44 Reassessment: ASHLEY Millan at bedside attempting to start an IV and obtain labs. kc6 10:00 Reassessment: No changes from previously documented assessment. Patient and/or family ll1 updated on plan of care and expected duration. Pain level reassessed. Patient is alert, oriented x 3, equal unlabored respirations, skin warm/dry/pink. 11:26 Reassessment: Patient appears in no apparent distress at this time. No changes from kc6 previously documented assessment. Patient and/or family updated on plan of care and expected duration. Pain level reassessed. Patient is alert, oriented x 3, equal unlabored respirations, skin warm/dry/pink. 12:03 Reassessment: Patient appears in no apparent distress at this time. No changes from kc6 previously documented assessment. Patient and/or family updated on plan of care and expected duration. Pain level reassessed. Patient is alert, oriented x 3, equal unlabored respirations, skin warm/dry/pink. Patient states feeling better. Patient states symptoms have improved. Vital Signs: 09:05 BP 200 / 119; Pulse 56; Resp 16 S; Temp 98.6(TE); Pulse Ox 100% on R/A; kc6 09:09 BP 180 / 95; kc6 09:45 BP 182 / 100; Pulse 46; Resp 17 S; Pulse Ox 96% on R/A; Weight 81.19 kg (R); Height 5 kc6 ft. 4 in. ; Pain 10/10; 10:12 BP 203 / 105; Pulse 44; Resp 18 S; Pulse Ox 96% on R/A; Pain 10/10; kc6 10:18 BP 187 / 97; kc6 10:39 BP 157 / 103; Pulse 48; Resp 18 S; Pulse Ox 98% on R/A; kc6 10:50 BP 158 / 96; Pulse 57; Resp 20 S; Pulse Ox 99% on R/A; kc6 11:40 BP 120 / 77; Pulse 67; Resp 16 S; Pulse Ox 96% on R/A; kc6 11:53 BP 134 / 86; kc6 09:45 Body Mass Index 30.72 (81.19 kg, 162.56 cm) kc6 09:45 Pain Scale: Adult kc6 10:12 Pain Scale: Adult kc6 [place] Coma Score: 11:54 Eye Response: spontaneous(4). Motor Response: obeys commands(6). Verbal Response: rn oriented(5). Total: 15. ED Course: 09:02 Patient arrived in ED. rn 09:02 Ramon Baker MD is Attending Physician. rn 09:04 Madyson Mills, ASHLEY is Primary Nurse. kc6 09:07 Triage completed. kc6 09:07 Arm band placed on. kc6 09:09 Patient has correct armband on for positive identification. Placed in gown. Bed in low kc6 position. Call light in reach. Side rails up X2. monitoring coordinator on. Pulse ox on. NIBP on. Warm blanket given. Pillow given. 09:[address] via wheelchair. kc6 09:23 CT Head Brain wo Cont In Process Unspecified. EDMS 09:43 Missed attempt(s): 22 gauge in right upper arm. Missed attempt(s): 24 gauge in left kc6 breast. 09:59 Missed attempt(s): 24 gauge in left in right foot. Bleeding controlled, band aid ll1 applied, catheter tip intact. 10:09 Missed attempt(s): 22 gauge in right foot. cm10 10:09 Inserted saline lock: 22 gauge in left ,using aseptic technique. Ankle Flushed with 10 cm10 mL NS. 10:11 Patient requests pain medication. kc6 10:50 Patient requests food. Patient requests liquids. kc6 10:50 Diet: Patient given snack. Patient given water. Tolerated well. kc6 12:22 No provider procedures requiring assistance completed. IV discontinued, intact, kc6 bleeding controlled, No redness/swelling at site. Pressure dressing applied. Administered Medications: 09:15 Drug: [place] PO 10 mg-325 mg 1 tabs PO once Route: PO; kc6 09:46 Follow up: Response: No adverse reaction; Pain is unchanged, physician notified; RASS: kc6 Alert and Calm (0) 10:11 Drug: hydrALAZINE IVP 10 mg IVP once {Note: left foot.} Route: IVP; Site: Other; kc6 11:26 Follow up: Response: No adverse reaction kc6 10:50 Drug: morphine IVP or IV 4 mg IVP once over 4 mins {Note: left foot.} Route: IVP; kc6 Infused Over: 4 mins; Site: Other; 11:25 Follow up: Response: No adverse reaction; Pain is decreased; RASS: Alert and Calm (0) kc6 11:25 Drug: Ondansetron IVP 4 mg IVP once; over 2 minutes {Note: left foot.} Route: IVP; kc6 Site: Other; 12:03 Follow up: Response: No adverse reaction; Nausea is decreased kc6 Medication: 12:22 VIS not applicable for this client. kc6 Outcome: 11:55 Discharge ordered by MD. ferrer 12:22 Discharged to home ambulatory, kc6 12:22 Condition: improved 12:22 Discharge instructions given to patient, Instructed on discharge instructions, follow up and referral plans. Demonstrated understanding of instructions, follow-up care, 12:22 Patient left the ED. kc6 Signatures: Dispatcher [employer] Ramon Linton MD MD rn Yanira De Jesus RN RN ll1 Madyson Mills RN RN kc6 Anika Simons RN RN cm10
--- NOTE | 2023-12-14 11:56 | EDPHYS ---
Physician Documentation [facility] Name: Marjan Kolb Age: 68 yrs Sex: Female : 1955 Arrival Date: 12/14/2023 Time: 09:01 Bed 14 Private MD: ED Physician Ramon Baker HPI: 12/13 09:10 This 68 yrs old Female presents to ER via EMS with complaints of Dizziness, Headache, rn High Blood Pressure. 09:10 The patient complains of pain to the left side of the back of head and right side of rn the back of head. The patient describes the headache as aching. Onset: The symptoms/episode began/occurred 1 week(s) ago. Severity of symptoms: At its worst the pain was moderate, in the emergency department the pain is unchanged. Headache History: The patient has had previous headaches and this one is similar to previous episodes. The symptoms are alleviated by nothing. the symptoms are aggravated by nothing. The patient has experienced similar episodes in the past. Patient reports headache for the last week, reports constant, moderate pain, no radiation, no neck stiffness or pain. Denies head injury. No fever. Does not feel ill. Believes it is her blood pressure. Took her blood pressure medication this morning around 6:30 AM. No history of brain tumor or aneurysm. No focal neurological deficit. Historical: - Allergies: 09:07 Azithromycin; kc6 09:07 Bactrim; kc6 09:07 butorphanol; kc6 09:07 Fentanyl; kc6 09:07 Reglan; kc6 09:07 Sulfa (Sulfonamide Antibiotics); kc6 09:07 TRIMETHOPRIM; kc6 - PMHx: 09:07 angina pectoris; Anxiety; Atrial fibrillation; Bipolar disorder; COPD (Unknown); kc6 esophageal varicies; Hepatitis; HIV positive; Hypertensive disorder; Hypertensive disorder; Migraine; panic attack; - PSHx: 09:07 Appendectomy; Cholecystectomy; kc6 - Immunization history:: Adult Immunizations up to date. - Infectious Disease History:: Denies. - Social history:: Smoking status: Patient reports the use of cigarette tobacco products. - Family history:: not pertinent. - Hospitalizations: : No recent hospitalization is reported. ROS: 09:10 Constitutional: Negative for fever, chills, and weight loss, Neck: Negative for injury, rn pain, and swelling, Cardiovascular: Negative for chest pain, palpitations, and edema, Respiratory: Negative for shortness of breath, cough, wheezing, and pleuritic chest pain, Abdomen/GI: Negative for abdominal pain, nausea, vomiting, diarrhea, and constipation, Back: Negative for injury and pain, MS/Extremity: Negative for injury and deformity, Skin: Negative for injury, rash, and discoloration, Neuro: Positive for headache, negative for focal weakness or numbness. No seizure Exam: 09:10 Constitutional: This is a well developed, well nourished patient who is awake, alert, rn and in no acute distress. Head/Face: Normocephalic, atraumatic. Neck: No Meningismus. Cardiovascular: Regular rate and rhythm. No pulse deficits. Respiratory: No increased work of breathing, no retractions or nasal flaring. Abdomen/GI: Soft, non-tender MS/ Extremity: Pulses equal, no cyanosis. Neurovascular intact. Full, normal range of motion. Equal circumference. Neuro: Awake and alert, GCS 15, oriented to person, place, time, and situation. Cranial nerves II-XII grossly intact. Motor strength 5/5 in all extremities. Sensory grossly intact. Cerebellar exam normal. 09:45 ECG was reviewed by the Attending Physician. rn Vital Signs: 09:05 BP 200 / 119; Pulse 56; Resp 16 S; Temp 98.6(TE); Pulse Ox 100% on R/A; kc6 09:09 BP 180 / 95; kc6 09:45 BP 182 / 100; Pulse 46; Resp 17 S; Pulse Ox 96% on R/A; Weight 81.19 kg (R); Height 5 kc6 ft. 4 in. ; Pain 10/10; 10:12 BP 203 / 105; Pulse 44; Resp 18 S; Pulse Ox 96% on R/A; Pain 10/10; kc6 10:18 BP 187 / 97; kc6 10:39 BP 157 / 103; Pulse 48; Resp 18 S; Pulse Ox 98% on R/A; kc6 10:50 BP 158 / 96; Pulse 57; Resp 20 S; Pulse Ox 99% on R/A; kc6 11:40 BP 120 / 77; Pulse 67; Resp 16 S; Pulse Ox 96% on R/A; kc6 11:53 BP 134 / 86; kc6 09:45 Body Mass Index 30.72 (81.19 kg, 162.56 cm) kc6 09:45 Pain Scale: Adult kc6 10:12 Pain Scale: Adult kc6 Crystal Coma Score: 11:54 Eye Response: spontaneous(4). Motor Response: obeys commands(6). Verbal Response: rn oriented(5). Total: 15. MDM: 09:02 Patient medically screened. rn 10:54 Independent interpretation of the following test(s) in the Emergency Department supervisor lead burning monitor: rate is 70 beats/min, Rhythm is normal sinus rhythm, regular, with no ectopy, Interpretation: normal rate, normal rhythm. 11:54 Differential diagnosis: hypertensive headache, intracerebral hemorrhage, migraine, rn tension headache, vasomotor headache. Data reviewed: vital signs, nurses notes, lab test result(s), EKG, radiologic studies, CT scan, and as a result, I will discharge patient. Counseling: I had a detailed discussion with the patient and/or guardian regarding the historical points, exam findings, and any diagnostic results supporting the discharge/admit diagnosis, lab results, radiology results, the need for outpatient follow up, to return to the emergency department if symptoms worsen or persist or if there are any questions or concerns that arise at home. Response to treatment: the patient's symptoms have markedly improved after treatment, and as a result, I will discharge patient. Special discussion: I discussed with the patient/guardian in detail that at this point there is no indication for admission to the hospital. It is understood, however, that if the symptoms persist or worsen the patient needs to return immediately for re-evaluation. ED course: BP improved to 134/86. Sleeping comfortably. No acute findings on workup. I have personally reviewed all of the results, including but not limited to blood tests and imaging deemed necessary to safely discharge this patient at this time. All results given to and printed out for patient. I personally went over all the results with the patient and answered all questions. Patient will follow-up with PCP and or specialist as discussed. Return precautions given and understood.. 11:55 Care significantly affected by the following chronic conditions: Hypertension. rn Counseling: I had a detailed discussion with the patient and/or guardian regarding the presence of at least one elevated blood pressure reading (>120/80) during this emergency department visit. Special discussion: I have referred the patient to see his PCP for further evaluation of high blood pressure. 12/13 09:08 Order name: CBC with Diff; Complete Time: 10:45 rn 12/13 09:08 Order name: Basic Metabolic Panel; Complete Time: 11:03 rn 12/13 09:08 Order name: CT Head Brain wo Cont; Complete Time: 10:45 rn 12/13 09:08 Order name: IV Start; Complete Time: 10:07 rn 12/13 09:08 Order name: EKG - Nurse/Tech; Complete Time: 09:43 rn EC:45 Rate is 48 beats/min. Rhythm is regular. QRS [place] is Normal. TN interval is normal. QRS rn interval is normal. QT interval is normal. No Q waves. T waves are Normal. No ST changes noted. Clinical impression: Sinus bradycardia. Interpreted by me. Reviewed by me. Administered Medications: 09:15 Drug: [place]field PO 10 mg-325 mg 1 tabs PO once Route: PO; kc6 09:46 Follow up: Response: No adverse reaction; Pain is unchanged, physician notified; RASS: kc6 Alert and Calm (0) 10:11 Drug: hydrALAZINE IVP 10 mg IVP once {Note: left foot.} Route: IVP; Site: Other; kc6 11:26 Follow up: Response: No adverse reaction kc6 10:50 Drug: morphine IVP or IV 4 mg IVP once over 4 mins {Note: left foot.} Route: IVP; kc6 Infused Over: 4 mins; Site: Other; 11:25 Follow up: Response: No adverse reaction; Pain is decreased; RASS: Alert and Calm (0) kc6 11:25 Drug: Ondansetron IVP 4 mg IVP once; over 2 minutes {Note: left foot.} Route: IVP; kc6 Site: Other; 12:03 Follow up: Response: No adverse reaction; Nausea is decreased kc6 Disposition Summary: 12/14/23 11:55 Discharge Ordered Notes: Location: Home rn Problem: new rn Symptoms: have improved rn Condition: Stable rn Diagnosis - Essential (primary) hypertension rn - Headache rn Followup: rn - With: Private Physician - When: As needed - Reason: Recheck today's complaints, Re-evaluation by your physician Discharge Instructions: - Discharge Summary Sheet rn - General Headache Without Cause rn - Hypertension, Adult rn - Managing Your Hypertension rn Forms: - Medication Reconciliation Form rn - Antibiotic grinder operator external tool - Prescription Opioid Use rn - Patient Portal Instructions rn - Leadership Thank You Letter rn Signatures: Dispatcher [employer] EDRamon Harrison MD MD rn Campbell, Kaitlyn, RN RN kc6 Corrections: (The following items were deleted from the chart) 09:08 09:08 Head Brain Wo Cont+CT.RAD.BRZ ordered. EDMS EDMS 09:08 09:08 CBC+H.LAB.BRZ ordered. EDMS EDMS 09:08 09:08 BASIC METABOLIC PANEL+C.LAB.BRZ ordered. EDMS EDMS
--- NOTE | 2023-12-15 13:19 | EKG ---
Test Date: 2023-12-14 Test Time: 09:27:43 Parking Inspector: LISBET MEASUREMENT RESULTS: Intervals: Rate: 48 HI: 208 QRSD: 84 QT: 504 QTc: 450 [place]: P: 79 HI: 208 QRS: 20 T: 44 INTERPRETIVE STATEMENTS: Sinus bradycardia Minimal voltage criteria for LVH, may be normal variant Borderline ECG Compared to ECG 11/22/2023 04:40:44 First degree AV block no longer present Early repolarization no longer present Prolonged QT interval no longer present Electronically Signed On 12-15-23 13:14:56 CDT by Mike Lund
[2023-12-15 18:56] VITALS: BP 134/86; TEMP 98.6; O2SAT 96
== END 2023-12-14 12:22 | disposition home or self-care (01) ==
LOC: ER 09:01
DX: I10 Essential (primary) hypertension (principal); R51.9 Headache, unspecified; I48.91 Unspecified atrial fibrillation; J44.9 Chronic obstructive pulmonary disease, unspecified; F17.210 Nicotine dependence, cigarettes, uncomplicated; Z21 Asymptomatic human immunodeficiency virus [HIV] infection status; Z88.2 Allergy status to sulfonamides; Z88.8 Allergy status to other drugs, medicaments and biological substances
CPT/HCPCS: 93005; 85025; 80048; 36415; 70450; 96375; 96374; 99285; J0360; J2405

== ENCOUNTER 2023-12-25 12:49 | Emergency (ER) | payer OTHER ==
--- NOTE | 2023-12-25 13:17 | EDPHYS ---
Physician Documentation [facility] Name: Marjan Kolb Age: 68 yrs Sex: Female : 1955 Arrival Date: 12/25/2023 Time: 12:49 Bed 15 Private MD: ED Physician Yayo August HPI: 12/24 13:16 This 68 yrs old Female presents to ER via EMS with complaints of Neck Pain, ec2 >24Hrs Old, Headache > 24hrs Old. 13:16 Patient arrives today for evaluation of chronic symptoms. Patient with headache as well ec2 as neck pain. Was here yesterday and refused medications, not intravenous. No falls injuries or trauma, no red flag symptoms.. Historical: - Allergies: 12:57 Azithromycin; kc6 12:57 Bactrim; kc6 12:57 butorphanol; kc6 12:57 Fentanyl; kc6 12:57 Reglan; kc6 12:57 Sulfa (Sulfonamide Antibiotics); kc6 12:57 TRIMETHOPRIM; kc6 - PMHx: 12:57 Hypercholesterolemia; Hypertensive disorder; kc6 - Immunization history:: Adult Immunizations unknown. - Infectious Disease History:: Denies. - Social history:: Smoking status: Patient reports the use of cigarette tobacco products. ROS: 13:16 Constitutional: as per hpi ec2 Exam: 13:16 Constitutional: GEN: NAD Head: atraumatic Eyes: EOMI Ears: External ears are ec2 normal. CV: regular rate LUNGS: no respiratory distress ABD: non-distended SKIN: no evidence of rashes MSK: no evidence of trauma NEURO: moves all extremities equally. Ambulatory without focal deficit appreciated. Vital Signs: 12:55 BP 160 / 117; Pulse 66; Resp 18 S; Temp 98(TE); Pulse Ox 98% on R/A; kc6 13:19 BP 141 / 103; kc6 MDM: 12:55 Patient medically screened. ec2 13:16 Data reviewed: vital signs. ED course: Patient arrives today for evaluation of chronic ec2 headache and neck pain. Examination remarkable for well-appearing nontoxic individual who is hemodynamically stable. However the patient p.o. and IM medications however she is specifically quested IV narcotics for her pain. I instructed her that we would not be doing that and she subsequently left. Patient is appropriate for discharge. She can follow-up outpatient expectantly for her chronic pains.. Administered Medications: No medications were administered Disposition Summary: 12/25/23 13:16 Discharge Ordered Notes: Location: Home ec2 Condition: Stable ec2 Diagnosis - Chronic pain, not elsewhere classified ec2 - Neck Pain ec2 - Headache ec2 Followup: ec2 - With: Private Physician - When: - Reason: Re-evaluation by your physician Forms: - Medication Reconciliation Form ec2 - Antibiotic Education ec2 - Prescription Opioid Use ec2 - Patient Portal Instructions ec2 - Leadership Thank You Letter ec2 Signatures: Madyson Mills RN RN kc6 Yayo August MD MD ec2
--- NOTE | 2023-12-25 13:17 | ER ---
Nurse's Notes [facility] Name: Marjan Kolb Age: 68 yrs Sex: Female : 1955 Arrival Date: 12/25/2023 Time: 12:49 Bed 15 Private MD: Diagnosis: Chronic pain, not elsewhere classified;Neck Pain;Headache Presentation: 12/24 12:55 Chief complaint: EMS states: they were toned out for headache and neck pain. pt states kc6 this is ongoing. Coronavirus screen: At this time, the client does not indicate any symptoms associated with coronavirus-19. Ebola Screen: No symptoms or risks identified at this time. Initial Sepsis Screen: Does the patient meet any 2 criteria? No. Patient's initial sepsis screen is negative. Does the patient have a suspected source of infection? No. Patient's initial sepsis screen is negative. Risk Assessment: Do you want to hurt yourself or someone else? Patient reports no desire to harm self or others. Onset of symptoms was December 25, 2023. 12:55 Method Of Arrival: EMS: [facility] kc6 12:55 Acuity: BLAYNE 3 kc6 Triage Assessment: 12:57 General: Appears in no apparent distress. comfortable, well groomed, well developed, kc6 Behavior is calm, cooperative, appropriate for age. Pain: Complains of pain in head, neck. EENT: No signs and/or symptoms were reported regarding the EENT system. Neuro: Level of Consciousness is awake, alert, obeys commands, Oriented to person, place, time, situation, Appropriate for age Reports headache. Cardiovascular: Capillary refill < 3 seconds. Respiratory: Airway is patent Trachea midline Respiratory effort is even, unlabored, Respiratory pattern is regular, symmetrical. GI: No signs and/or symptoms were reported involving the gastrointestinal system. : No signs and/or symptoms were reported regarding the genitourinary system. Derm: No signs and/or symptoms reported regarding the dermatologic system. Skin is fragile, is thin, with poor turgor Skin is dry, Skin is normal, Skin temperature is warm Bruising that is dark purple, on right arm and left arm. Musculoskeletal: No signs and/or symptoms reported regarding the musculoskeletal system. Circulation, motion, and sensation intact. Capillary refill < 3 seconds, Range of motion: intact in all extremities. Historical: - Allergies: 12:57 Azithromycin; kc6 12:57 Bactrim; kc6 12:57 butorphanol; kc6 12:57 Fentanyl; kc6 12:57 Reglan; kc6 12:57 Sulfa (Sulfonamide Antibiotics); kc6 12:57 TRIMETHOPRIM; kc6 - PMHx: 12:57 Hypercholesterolemia; Hypertensive disorder; kc6 - Immunization history:: Adult Immunizations unknown. - Infectious Disease History:: Denies. - Social history:: Smoking status: Patient reports the use of cigarette tobacco products. Screenin:59 [facility] ED Fall Risk Assessment (Adult) History of falling in the last 3 months, kc6 including since admission No falls in past 3 months (0 pts) Confusion or Disorientation No (0 pts) Intoxicated or Sedated No (0 pts) Impaired Gait No (0 pts) Mobility Assist Device Used No (0 pt) Altered Elimination No (0 pt) Score/Fall Risk Level 0 - 2 = Low Risk. Abuse screen: Denies threats or abuse. Denies injuries from another. Nutritional screening: No deficits noted. Tuberculosis screening: No symptoms or risk factors identified. Assessment: 12:58 Reassessment: please see triage. kc6 13:18 Reassessment: Dr. August at bedside speaking with pt. kc6 13:20 Reassessment: pt disconnected herself from the monitor and left ER before signing kc6 discharge papers. Dr. August \T\ charge hand notified. Vital Signs: 12:55 BP 160 / 117; Pulse 66; Resp 18 S; Temp 98(TE); Pulse Ox 98% on R/A; kc6 13:19 BP 141 / 103; kc6 ED Course: 12:52 Patient arrived in ED. kc6 12:54 Yayo August MD is Attending Physician. ec2 12:55 Madyson Mills, ASHLEY is Primary Nurse. kc6 12:57 Triage completed. kc6 12:57 Arm band placed on. kc6 12:58 Patient has correct armband on for positive identification. Bed in low position. Call kc6 light in reach. Side rails up X2. Pulse ox on. NIBP on. Pillow given. 13:20 No provider procedures requiring assistance completed. Patient did not have IV access kc6 during this emergency room visit. Administered Medications: No medications were administered Medication: 13:20 VIS not applicable for this client. kc6 Outcome: 13:16 Discharge ordered by . ec2 13:20 Discharged to home ambulatory, kc6 13:20 Condition: good 13:29 Patient left the ED. kc6 Signatures: Madyson Mills RN RN kc6 Yayo August MD MD ec2
[2023-12-25 15:08] VITALS: TEMP 98; O2SAT 98
[2023-12-25 15:09] VITALS: BP 141/103
== END 2023-12-25 13:29 | disposition home or self-care (01) ==
LOC: ER 12:49
DX: G89.29 Other chronic pain (principal); M54.2 Cervicalgia; R51.9 Headache, unspecified
CPT/HCPCS: 99283

== ENCOUNTER 2024-01-01 13:04 | Emergency (ER) | payer OTHER ==
[2024-01-01] MEDS ORDERED: dexAMETHasone 10 MG/ML VIAL ONE (13:43)
[2024-01-01] MEDS ORDERED: KETOROLAC 30 MG/ML INJ ONE (13:44)
[2024-01-01] MEDS ORDERED: ONDANSETRON 4 MG (ODT) TAB ONE (13:44)
[2024-01-01] MEDS ORDERED: CYCLOBENZAPRINE 10 MG TAB ONE (13:44)
--- NOTE | 2024-01-01 13:53 | ER ---
Nurse's Notes [facility] Name: Marjan Kolb Age: 68 yrs Sex: Female : 1955 Arrival Date: 01/01/2024 Time: 13:04 Bed 17 Private MD: Diagnosis: Lumbago with sciatica Presentation: 12/31 13:15 Chief complaint: Patient states: Low back pain for quite some time. Has appointment nj1 with "back doctor" in [place] sometime this coming week but couldn't wait until then. Feels naseous. Coronavirus screen: Vaccine status: Patient reports receiving the 2nd dose of the covid vaccine. Ebola Screen: Patient denies travel to an Ebola-affected area in the 21 days before illness onset. Initial Sepsis Screen: Does the patient meet any 2 criteria? No. Patient's initial sepsis screen is negative. Initial Sepsis Screen: Does the patient have a suspected source of infection? No. Patient's initial sepsis screen is negative. Risk Assessment: Do you want to hurt yourself or someone else? Patient reports no desire to harm self or others. Onset of symptoms was 2023. 13:15 Method Of Arrival: Ambulatory nj1 13:15 Acuity: BLAYNE 3 nj1 Historical: - Allergies: 13:18 Azithromycin; nj1 13:18 Bactrim; nj1 13:18 butorphanol; nj1 13:18 Fentanyl; nj1 13:18 Reglan; nj1 13:18 Sulfa (Sulfonamide Antibiotics); nj1 13:18 TRIMETHOPRIM; nj1 - PMHx: 13:18 Hypercholesterolemia; Hypertensive disorder; nj1 - Immunization history:: Client reports receiving the 2nd dose of the Covid vaccine. - Infectious Disease History:: Denies. - Social history:: Smoking status: Patient denies any tobacco usage or history of. Screenin:52 [facility] ED Fall Risk Assessment (Adult) History of falling in the last 3 months, me1 including since admission No falls in past 3 months (0 pts) Confusion or Disorientation No (0 pts) Intoxicated or Sedated No (0 pts) Impaired Gait No (0 pts) Mobility Assist Device Used No (0 pt) Altered Elimination No (0 pt) Score/Fall Risk Level 0 - 2 = Low Risk Maintained a safe environment, Provided non-skid footwear, Hourly rounding (assess needs \\T\\ fall precautionary measures) done. Abuse screen: Denies threats or abuse. Nutritional screening: No deficits noted. Tuberculosis screening: No symptoms or risk factors identified. Assessment: 13:52 General: Appears uncomfortable, well developed, well nourished, Behavior is calm, me1 cooperative, appropriate for age, Reports Low back pain for quite some time. Has appointment with "back doctor" in [place] sometime this coming week but couldn't wait until then. Feels nauseated. Pain: Complains of pain in back Pain radiates to right leg Pain currently is 10 out of 10 on a pain scale. Quality of pain is described as sharp, shooting, Pain began gradually, Is continuous. Neuro: Level of Consciousness is awake, alert, obeys commands, Oriented to person, place, time, situation, Appropriate for age. Cardiovascular: Patient's skin is warm and dry. Respiratory: Airway is patent Respiratory effort is even, unlabored, Respiratory pattern is regular, symmetrical. GI: Reports nausea. : No signs and/or symptoms were reported regarding the genitourinary system. EENT: No signs and/or symptoms were reported regarding the EENT system. Derm: Skin is intact, is healthy with good turgor, Skin is pink, warm \\T\\ dry. Musculoskeletal: Reports pain in back. Vital Signs: 13:15 BP 209 / 97; Pulse 55; Resp 18; Temp 98.8(O); Pulse Ox 95% ; Weight 79.38 kg; Height 5 nj1 ft. 4 in. ; Pain 10/10; 14:00 BP 151 / 73; Pulse 58; Resp 16; Pulse Ox 98% ; me1 13:15 Body Mass Index 30.04 (79.38 kg, 162.56 cm) nj1 13:15 Pain Scale: Adult nj1 ED Course: 13:07 Patient arrived in ED. ra3 13:07 Daysi Mendez PA-C is PHCP. sb4 13:07 Ramon Baker MD is Attending Physician. sb4 13:18 Triage completed. nj1 13:18 Arm band placed on right wrist. nj1 13:41 Shira Solomon, ASHLEY is Primary Nurse. me1 13:52 Patient has correct armband on for positive identification. Bed in low position. Call me1 light in reach. Side rails up X 1. Provided Education on: POC. Verbalized understanding.. Client placed on continuous cardiac and pulse oximetry monitoring. NIBP monitoring applied. Pulse ox on. NIBP on. 13:52 No provider procedures requiring assistance completed. Patient did not have IV access me1 during this emergency room visit. Administered Medications: 13:50 Drug: Dexamethasone IM 10 mg IM once Route: IM; Site: right deltoid; me1 14:31 Follow up: Response: No adverse reaction me1 13:50 Drug: Cyclobenzaprine PO 10 mg PO once Route: PO; me1 14:31 Follow up: Response: No adverse reaction; Pain is decreased me1 13:50 Not Given (Patient Refused): [id number] mg IM once me1 13:50 Drug: Ondansetron PO 4 mg PO once Route: PO; me1 14:30 Follow up: Response: No adverse reaction; Nausea is decreased me1 Medication: 13:52 VIS not applicable for this client. me1 Outcome: 13:52 Discharge ordered by . dwain 14:32 Discharged to home ambulatory, me1 14:32 Condition: good 14:32 Discharge instructions given to patient, Instructed on discharge instructions, follow up and referral plans. Demonstrated understanding of instructions, follow-up care, 14:32 Patient left the ED. me1 Signatures: Daysi Mendez PA-C PA-C sb4 Aracely Sims RN RN nj1 Shira Solomon RN RN me1 Arleen Chan ra3 Corrections: (The following items were deleted from the chart) 13:52 13:15 Chief complaint: Patient states: Low back pain for quite some time. Has me1 appointment with "back doctor" in [place] sometime this coming week but couldn't wait until then. Feels naseous. nj1
--- NOTE | 2024-01-01 13:53 | EDPHYS ---
Physician Documentation [facility] Name: Marjan Kolb Age: 68 yrs Sex: Female : 1955 Arrival Date: 01/01/2024 Time: 13:04 Bed 17 Private MD: ED Physician Ramon Baker HPI: 12/31 13:39 This 68 yrs old Female presents to ER via Ambulatory with complaints of Low Back Pain. sb4 13:39 patient reports a flare up of her sciatica that started this morning. she has had sb4 issues for it for quite some time now, is supposed to see a specialist soon. denies any numbness, tingling, weakness, bowel/bladder incontinence. Historical: - Allergies: 13:18 Azithromycin; nj1 13:18 Bactrim; nj1 13:18 butorphanol; nj1 13:18 Fentanyl; nj1 13:18 Reglan; nj1 13:18 Sulfa (Sulfonamide Antibiotics); nj1 13:18 TRIMETHOPRIM; nj1 - PMHx: 13:18 Hypercholesterolemia; Hypertensive disorder; nj1 - Immunization history:: Client reports receiving the 2nd dose of the Covid vaccine. - Infectious Disease History:: Denies. - Social history:: Smoking status: Patient denies any tobacco usage or history of. ROS: 13:39 Constitutional: Negative for fever, chills, and weight loss, sb4 13:39 Back: Positive for pain at rest, 13:39 All other systems are negative, Exam: 13:39 Constitutional: This is a well developed, well nourished patient who is awake, alert, sb4 and in no acute distress. Head/Face: Normocephalic, atraumatic. Eyes: Extra-ocular motions intact. Periorbital areas with no swelling, redness, or edema. ENT: Mucous membranes moist. Back: No spinal tenderness. No costovertebral tenderness. Full range of motion. Neuro: Awake and alert, GCS 15, oriented to person, place, time, and situation. Motor strength 5/5 in all extremities. Sensory grossly intact. Vital Signs: 13:15 BP 209 / 97; Pulse 55; Resp 18; Temp 98.8(O); Pulse Ox 95% ; Weight 79.38 kg; Height 5 nj1 ft. 4 in. ; Pain 10/10; 14:00 BP 151 / 73; Pulse 58; Resp 16; Pulse Ox 98% ; me1 13:15 Body Mass Index 30.04 (79.38 kg, 162.56 cm) nj1 13:15 Pain Scale: Adult nj1 MDM: 13:09 Patient medically screened. sb4 13:40 Data reviewed: vital signs, nurses notes, and as a result, I will discharge patient. sb4 Counseling: I had a detailed discussion with the patient and/or guardian regarding the historical points, exam findings, and any diagnostic results supporting the discharge/admit diagnosis, the presence of at least one elevated blood pressure reading (>120/80) during this emergency department visit, to return to the emergency department if symptoms worsen or persist or if there are any questions or concerns that arise at home. Special discussion: I discussed with the patient their frequent requests for pain medications. Instructions have been given, that in the best interests of the patient, further pain Rx's must come from the patient's PCP or a finish painter. Administered Medications: 13:50 Drug: Dexamethasone IM 10 mg IM once Route: IM; Site: right deltoid; me1 14:31 Follow up: Response: No adverse reaction me1 13:50 Drug: Cyclobenzaprine PO 10 mg PO once Route: PO; me1 14:31 Follow up: Response: No adverse reaction; Pain is decreased me1 13:50 Not Given (Patient Refused): [id number] mg IM once me1 13:50 Drug: Ondansetron PO 4 mg PO once Route: PO; me1 14:30 Follow up: Response: No adverse reaction; Nausea is decreased me1 Disposition: 15:00 Co-signature as Attending Physician, Ramon Baker MD I reviewed the patient's care rn provided by the Advanced Practice Provider and agree with the diagnosis and treatment plan. Disposition Summary: 01/01/24 13:52 Discharge Ordered Notes: Location: Home sb4 Problem: an acute exacerbation sb4 Symptoms: have improved sb4 Condition: Stable sb4 Diagnosis - Lumbago with sciatica sb4 Followup: sb4 - With: Private Physician - When: As needed - Reason: Recheck today's complaints, Re-evaluation by your physician Discharge Instructions: - Discharge Summary Sheet sb4 - Sciatica, [id number] sb4 Forms: - Patient Portal Instructions sb4 - Leadership Thank You Letter sb4 Signatures: Ramon Baker MD MD rn Andrea, NEO Tavarez PA-C sb4 Aracely Sims RN RN nj1 Shira Solomon RN RN me1
[2024-01-01 15:05] VITALS: TEMP 98.8
[2024-01-01 15:07] VITALS: BP 151/73; O2SAT 98
== END 2024-01-01 14:32 | disposition home or self-care (01) ==
LOC: ER 13:04
DX: M54.40 Lumbago with sciatica, unspecified side (principal)
CPT/HCPCS: 96372; 99284; Q0162; J1100

== ENCOUNTER 2024-01-06 09:48 | Inpatient (IN) | payer OTHER ==
[2024-01-06] MEDS ORDERED: ONDANSETRON 4 MG/2 ML VIAL ONE (10:08)
[2024-01-06 10:30] LABS: Absolute Eosinophils 0.1 K/uL (0-0.5); Absolute Lymphocytes (CBC) 0.8 K/uL (0.7-4.9); Absolute Monocytes 0.6 K/uL (0.1-1.3); Absolute Neutrophil 7.6 K/uL (1.8-8.0); Basophils % 0.2 % (0-1.3); Eosinophils % 0.8 % (0-4.4); Hematocrit 40.8 % (36.0-45.0); Lymphocytes % 8.9 % (15.3-44.8); MCH 27.4 pg (27.0-35.0); MCHC 31.9 g/dL (32.0-36.0); MCV 85.9 fL (80-100); MPV 6.6 fL (7.6-11.3); Monocytes % 6.5 % (3.3-12.3); Neutrophils % 83.6 % (41.7-73.7); Nucleated Red Blood Cells % 0.2 % (0-0); Platelets 169 thou/uL (152-406); RBC Red Blood Cell Count 4.75 M/uL (3.86-4.86); Red Cell Distribution Width 16.2 % (12.1-15.2)
--- NOTE | 2024-01-06 10:35 | RAD REPORT ---
EXAM DESCRIPTION: CT - Abdomen Pelvis Wo Contrast - 01/06/2024 10:26 am CLINICAL HISTORY: Abdominal pain. vomiting/diarrhea;Abd pain COMPARISON: [facility] Protocol dated 10/21/2023; Head Brain Wo Cont dated 12/20/2023 TECHNIQUE: CT imaging of the abdomen and pelvis was performed without contrast. Solid organ, bowel a nd vascular assessment is limited due to lack of IV and oral contrast. All CT scans are performed using dose optimization technique as appropriate and may include automated exposure control or mA/KV adjustment according to patient size. FINDINGS: The lower lung patel are clear.Cholecystectomy. Postsurgical changes at the esophagogastr ic junction. The liver, spleen, pancreas, adrenal glands and kidneys are within normal limits for a limited non-co ntrast examination.Benign cysts present bilaterally. Multiple mildly dilated thickened small bowel loops are seen in the central abdomen. Several of these appear somewhat stacked. This suggests a partial mechanical small-bowel obstruction. There is liquid stool seen throughout the colon. No free air or abscess. The appendix is not identified as a discret e structure, however, no secondary findings of appendicitis are identified. The osseous structures are within normal limits. IMPRESSION: Findings likely indicate a mild to moderate partial mechanical small-bowel obstruction. No free intraperitoneal air. A limited non-contrast examination was performed as detailed.
[2024-01-06 10:46] LABS: Albumin 3.7 g/dL (3.4-5.0); Albumin/Globulin Ratio 0.9 (1.1-1.8); Bilirubin Total 0.5 mg/dL (0.2-1.0); Globulin 4.2 g/dL (2.3-3.5); Protein, Total 7.9 g/dL (6.4-8.2)
[2024-01-06] MEDS ORDERED: MORPHINE 4 MG/ML SYR ONE ×2 (11:27→13:14)
--- NOTE | 2024-01-06 11:48 | ER ---
Nurse's Notes [facility] Name: Marjan Kolb Age: 68 yrs Sex: Female : 1955 Arrival Date: 01/06/2024 Time: 09:48 Bed 7 Private MD: Diagnosis: Small bowel obstruction Presentation: 01/05 09:56 Chief complaint: EMS states: n/v/d X 2 days, lower abd pain. Coronavirus screen: At iw this time, the client does not indicate any symptoms associated with coronavirus-19. Ebola Screen: No symptoms or risks identified at this time. Initial Sepsis Screen: Does the patient meet any 2 criteria? No. Patient's initial sepsis screen is negative. Does the patient have a suspected source of infection? No. Patient's initial sepsis screen is negative. Risk Assessment: Do you want to hurt yourself or someone else? Patient reports no desire to harm self or others. Onset of symptoms was January 04, 2024. 09:56 Method Of Arrival: EMS: [facility] iw 09:56 Acuity: BLAYNE 3 iw 09:57 Care prior to arrival: Medication(s) given: zofran IM Glucose check: 103. iw Historical: - Allergies: 09:57 Azithromycin; iw 09:57 Bactrim; iw 09:57 butorphanol; iw 09:57 Fentanyl; iw 09:57 Reglan; iw 09:57 Sulfa (Sulfonamide Antibiotics); iw 09:57 TRIMETHOPRIM; iw - PMHx: 09:57 Hypercholesterolemia; Hypertensive disorder; iw - Family history:: not pertinent. - Hospitalizations: : No recent hospitalization is reported. Screenin:00 [facility] ED Fall Risk Assessment (Adult) History of falling in the last 3 months, aa5 including since admission No falls in past 3 months (0 pts) Confusion or Disorientation No (0 pts) Intoxicated or Sedated No (0 pts) Impaired Gait No (0 pts) Mobility Assist Device Used No (0 pt) Altered Elimination No (0 pt) Score/Fall Risk Level 0 - 2 = Low Risk Oriented to surroundings, Maintained a safe environment, Educated pt \\T\\ family on fall prevention, incl call for assistance when getting out of bed. Abuse screen: Denies threats or abuse. Nutritional screening: No deficits noted. Tuberculosis screening: No symptoms or risk factors identified. Assessment: 10:00 General: Appears comfortable, Behavior is calm, cooperative. Pain: Complains of pain in aa5 right lower quadrant and left lower quadrant Pain currently is 6 out of 10 on a pain scale. Quality of pain is described as aching, Pain began 2-3 days ago. Is continuous. Neuro: Level of Consciousness is awake, alert, obeys commands, Oriented to person, place, time, situation. Cardiovascular: Heart tones S1 S2 present Rhythm is regular. Respiratory: Airway is patent Respiratory effort is even, unlabored, Respiratory pattern is regular, symmetrical. GI: Abdomen is round non-distended, Bowel sounds present X 4 quads. Abd is soft and non tender X 4 quads. Reports diarrhea, nausea, vomiting, since yesterday. : No signs and/or symptoms were reported regarding the genitourinary system. EENT: Reports nasal discharge that is watery. Derm: Skin is pink, warm \\T\\ dry. Bruising that is dark purple, on right arm and left arm. Musculoskeletal: Range of motion: intact in all extremities. 11:30 Reassessment: Patient is alert, oriented x 3, equal unlabored respirations, skin aa5 warm/dry/pink. 12:00 Reassessment: Patient is alert, oriented x 3, equal unlabored respirations, skin aa5 warm/dry/pink. Patient states feeling better. 13:15 Reassessment: Patient is alert, oriented x 3, equal unlabored respirations, skin aa5 warm/dry/pink. Pt requesting pain medication, MD notified. . Vital Signs: 09:55 BP 171 / 110; Pulse 58; Resp 20 S; Temp 98.2(TE); Pulse Ox 100% on R/A; aa5 11:30 BP 169 / 100; Pulse 55; Resp 16 S; Pulse Ox 100% on R/A; aa5 13:15 BP 158 / 78; Pulse 59; Resp 18 S; Pulse Ox 100% on R/A; aa5 ED Course: 09:50 Patient arrived in ED. rn 09:50 Ramon Baker MD is Attending Physician. rn 09:57 Triage completed. iw 09:57 Arm band placed on. iw 10:00 Patient has correct armband on for positive identification. Bed in low position. Call aa5 light in reach. Side rails up X 1. Pulse ox on. NIBP on. 10:04 Schulz, Lindsay, RN is Primary Nurse. aa5 10:15 Missed attempt(s): 24 gauge in left wrist. Bleeding controlled, band aid applied, aa5 catheter tip intact. 10:20 Initial lab(s) drawn, by me, sent to lab. aa5 10:20 Missed attempt(s): 24 gauge in right wrist. Bleeding controlled, band aid applied, aa5 catheter tip intact. 10:28 CT Abd/Pelvis - Without Contrast In Process Unspecified. EDMS 10:49 Inserted saline lock: 22 gauge in left ,using aseptic technique. foot Flushed with 10 iw mL NS. 11:46 Liz Qureshi MD is Hospitalizing Provider. rn 13:50 No provider procedures requiring assistance completed. Patient admitted, IV remains in aa5 place. 14:23 1303 CM met with patient at bedside in the ED exam room. Patient identified by name and ane . Demographic sheet confirmed. Patient states she lives in a single story home with her Bharat. Prior to admission, she uses a walker to ambulate. Other DME includes a nebulizer. Mrs. Kolb states she has a home oxygen concentrator through [employer] [facility], and is on 2.5 L. Mrs. Kolb states she needs help with things like "making my bed" and is also hoping for a HH service although does not have HH or other medical services at this time. No MPOA in place, patient requested one be completed now. also requested information on "Meals on Wheels". CM provided information on meal services and private pay caregivers.Mrs. Kolb's preferred discharge plan is to return home with a HH service if it is possible and necessary. CM team will continue to follow and coordinate care. 1344 MPOA paperwork completed, signed and witnessed at 1344. Administered Medications: 10:48 Drug: Ondansetron IVP 4 mg IVP once; over 2 minutes {Note: left foot.} Route: IVP; iw Site: Other; 10:55 Follow up: Response: No adverse reaction aa5 11:30 Drug: morphine IVP or IV 4 mg IVP once over 4 mins {Note: to left foot .} Route: IVP; aa5 Infused Over: 4 mins; Site: Other; 11:35 Follow up: Response: No adverse reaction aa5 13:16 Drug: morphine IVP or IV 4 mg IVP once over 4 mins {Note: left foot.} Route: IVP; iw Infused Over: 4 mins; Site: Other; 13:20 Follow up: Response: No adverse reaction aa5 Medication: 10:46 VIS not applicable for this client. aa5 Outcome: 11:47 Decision to Hospitalize by Provider. rn 13:50 Admitted to Med/surg accompanied by tech, via wheelchair, with chart, aa5 13:50 Condition: stable 13:50 Instructed on the need for admit, Demonstrated understanding of instructions, 13:54 Patient left the ED. Signatures: Dispatcher [employer] EDMS Jacquelin Meier RN RN Ramon Baker MD MD rn Calderon, Audri RN ASHLEY [facility] Tata Rivera RN RN Alona Bhakta RN ASHLEY burris Corrections: (The following items were deleted from the chart) 09:57 09:56 Chief complaint: EMS states: n/v X 2 days, lower abd pain iw iw
--- NOTE | 2024-01-06 11:48 | EDPHYS ---
Physician Documentation [facility] Name: Marjan Kolb Age: 68 yrs Sex: Female : 1955 Arrival Date: 01/06/2024 Time: 09:48 Bed 7 Private MD: ED Physician Ramon Baker HPI: 01/05 11:43 This 68 yrs old Female presents to ER via EMS with complaints of rn Nausea/Vomiting/Diarrhea, Abdominal Pain. 11:43 The patient presents to the emergency department with nausea, vomiting, diarrhea, rn abdominal pain. Onset: The symptoms/episode began/occurred yesterday. Possible causes: unknown. Associated signs and symptoms: Pertinent positives: abdominal pain, diarrhea, nausea, vomiting, Pertinent negatives: fever, GI bleeding. Severity of symptoms: At their worst the symptoms were moderate in the emergency department the symptoms are unchanged. The patient has not experienced similar symptoms in the past. Patient reports nausea/vomiting/abdominal pain since yesterday. Has had small amount of loose stool. Nonbloody. . Historical: - Allergies: 09:57 Azithromycin; iw 09:57 Bactrim; iw 09:57 butorphanol; iw 09:57 Fentanyl; iw 09:57 Reglan; iw 09:57 Sulfa (Sulfonamide Antibiotics); iw 09:57 TRIMETHOPRIM; iw - PMHx: 09:57 Hypercholesterolemia; Hypertensive disorder; iw - Family history:: not pertinent. - Hospitalizations: : No recent hospitalization is reported. ROS: 11:43 Constitutional: Negative for fever, chills, and weight loss, Cardiovascular: Negative rn for chest pain, palpitations, and edema, Respiratory: Negative for shortness of breath, cough, wheezing, and pleuritic chest pain, Abdomen/GI: Positive for abdominal pain with nausea/vomiting MS/Extremity: Negative for injury and deformity, Skin: Negative for injury, rash, and discoloration, Neuro: Positive for generalized weakness Exam: 11:43 Constitutional: This is a well developed, well nourished patient who is awake, alert, rn and in no acute distress. Cardiovascular: Regular rate and rhythm. No pulse deficits. Respiratory: No increased work of breathing, no retractions or nasal flaring. Abdomen/GI: Soft, mild mid abdominal tenderness without guarding or rebound. MS/ Extremity: Pulses equal, no cyanosis. Neuro: Awake and alert, GCS 15 Vital Signs: 09:55 BP 171 / 110; Pulse 58; Resp 20 S; Temp 98.2(TE); Pulse Ox 100% on R/A; aa5 11:30 BP 169 / 100; Pulse 55; Resp 16 S; Pulse Ox 100% on R/A; aa5 13:15 BP 158 / 78; Pulse 59; Resp 18 S; Pulse Ox 100% on R/A; aa5 MDM: 09:50 Patient medically screened. rn 11:43 Differential diagnosis: Nonspecific abd pain, gastritis, cholecystitis, pancreatitis, rn appendicitis, diverticulitis, viral gastroenteritis, gastroenteritis, SBO. Data reviewed: vital signs, nurses notes, lab test result(s), radiologic studies, CT scan, and as a result, I will admit patient. Consideration of Admission/Observation Patient was admitted/placed on observation. Escalation of care including admission/observation considered. Counseling: I had a detailed discussion with the patient and/or guardian regarding the historical points, exam findings, and any diagnostic results supporting the discharge/admit diagnosis, lab results, radiology results, the need for further work-up and treatment in the hospital. Response to treatment: the patient's symptoms have mildly improved after treatment, and as a result, I will admit patient. 01/05 10:04 Order name: CBC with Diff; Complete Time: 11:10 01/05 10:04 Order name: CMP; Complete Time: 11:10 rn 01/05 10:04 Order name: Lipase; Complete Time: 11:10 01/05 10:04 Order name: Urinalysis w/ reflexes rn 01/05 10:04 Order name: SARS RAPID rn 01/05 10:04 Order name: Flu rn 01/05 12:35 Order name: Thyroid Stimulating Hormone EDMS 01/05 12:35 Order name: Urinalysis w/ reflexes EDMS 01/05 12:35 Order name: CBC with Automated Diff EDMS 01/05 12:35 Order name: CBC with Automated Diff EDMS 01/05 12:35 Order name: CBC with Automated Diff EDMS 01/05 12:35 Order name: CBC with Automated Diff EDMS 01/05 12:35 Order name: Comprehensive Metabolic Panel EDMS 01/05 12:35 Order name: Comprehensive Metabolic Panel EDMS 01/05 12:35 Order name: Comprehensive Metabolic Panel EDMS 01/05 12:35 Order name: Comprehensive Metabolic Panel EDMS 01/05 12:35 Order name: Lipid Profile EDMS 01/05 12:35 Order name: Lipid Profile EDMS 01/05 12:35 Order name: Magnesium EDMS 01/05 12:35 Order name: Magnesium EDMS 01/05 12:35 Order name: Magnesium EDMS 01/05 12:35 Order name: Magnesium EDMS 01/05 12:35 Order name: Phosphorus EDMS 01/05 12:35 Order name: Phosphorus EDMS 01/05 12:35 Order name: Phosphorus EDMS 01/05 12:35 Order name: Phosphorus EDMS 01/05 10:04 Order name: CT Abd/Pelvis - Without Contrast; Complete Time: 11:10 rn 01/05 12:35 Order name: CONS Physician Consult EDNC 01/05 10:04 Order name: IV Saline Lock; Complete Time: 10:20 rn 01/05 10:04 Order name: Labs collected and sent; Complete Time: 10:20 rn Administered Medications: 10:48 Drug: Ondansetron IVP 4 mg IVP once; over 2 minutes {Note: left foot.} Route: IVP; iw Site: Other; 10:55 Follow up: Response: No adverse reaction aa5 11:30 Drug: morphine IVP or IV 4 mg IVP once over 4 mins {Note: to left foot .} Route: IVP; aa5 Infused Over: 4 mins; Site: Other; 11:35 Follow up: Response: No adverse reaction aa5 13:16 Drug: morphine IVP or IV 4 mg IVP once over 4 mins {Note: left foot.} Route: IVP; iw Infused Over: 4 mins; Site: Other; 13:20 Follow up: Response: No adverse reaction aa5 Disposition Summary: 01/06/24 11:47 Hospitalization Ordered Notes: Hospitalization Status: Inpatient Admission rn Provider: Liz Qureshi rn Location: Telemetry/MedSurg (Inpatient) rn Condition: Stable rn Problem: new rn Symptoms: have improved rn Bed/Room Type: Standard rn Room Assignment: 204(01/06/24 13:11) em1 Diagnosis - Small bowel obstruction rn Forms: - Medication Reconciliation Form rn - SBAR form rn - Leadership Thank You Letter rn Signatures: Dispatcher [employer] Jacquelin Rios Ramon Roman RN, MD MD rn Martinez, Eric em1 Lindsay Schulz RN RN aa5 Corrections: (The following items were deleted from the chart) 13:11 11:47 rn em1
[2024-01-06] MEDS ORDERED: ALBUTEROL 2.5 MG/3 ML NEB SOL NEB PRN (12:29)
--- NOTE | 2024-01-06 12:41 | P.HP ---
Certification for Inpatient Patient admitted to: Inpatient With expected LOS: >2 Midnights <Cristina Mueller - Last Filed: 01/06/24 16:47> Patient History Date of Service: 01/06/24 Reason for admission: Partial small bowel obstruction History of Present Illness: Ms. Kolb is a 68 yrs old Female with multiple medical problems including coronary artery disease, COPD, chronic pain, hypertension, hyperlipidemia, HIV, and small bowel obstruction. She presents to the emergency department today via EMS with complaints of Nausea, vomiting, and abdominal pain. She was recently admitted for the same symptoms. She states she has not changed diet, medications, or lifestyle. She does have a past surgical history of cholecystectomy, appendectomy, and hernia repair. We will admit her for observation to attempt advancing diet. She agrees to NG tube only with continued vomiting. Dr. Rahman has been consulted. Labs are pretty unremarkable and similar to baseline. CT imaging shows "mild to moderate partial mechanical small bowel obstruction." Home medications list reviewed: Yes - Past Medical/Surgical History Has patient received pneumonia vaccine in the past: Yes Diabetic: No -: HIV- viral load currently undectable -: CAD -: Bipolar disorder -: Hypertension -: COPD on home O2 @ 2L -: Tobacco abuse -: former Alcohol abuse -: Anemia of chronic disease -: Hyperlipidemia -: GERD with hiatal hernia -: Atrial fibrillation-paroxysmal S/P Watchman procedure -: Chronic diastolic CHF -: Appendectomy Watchman procedure, -: Cholecystectomy -: left and right shoulder rotator cuff repair -: Right foot repair -: Right shoulder replacement -: right wrist -: hiatal hernia repair february 2021 -: right wrist Psychosocial/ Personal History: She lives at home. She is . Family coming to visit from [place] tomorrow - Family History Father -: Heart disease, Hypertension, Lung disease, GI disease, Stroke, Cancer, Liver disease, Kidney disease Notes: Colon cancer Mother -: Hypertension, Lung disease, GI disease, Blood disorders, Other (see notes) Notes: Epilepsy, chronic pain, leukemia - Social History Smoking Status: Former smoker Alcohol use: No CD- Drugs: No Caffeine use: No Place of Residence: Home <Cristina Mueller - Last Filed: 01/06/24 16:47> Date of Service: 01/06/24 <Liz Qureshi - Last Filed: 01/09/24 15:42> Allergies fentanyl Allergy (Severe, Verified 07/20/22 08:30) Hives adhesive tape Allergy (Verified 07/20/22 08:30) Rash butorphanol tartrate [From Stadol] Allergy (Verified 07/20/22 08:30) confusion metoclopramide HCl [From Reglan] Allergy (Verified 07/20/22 08:30) Shortness of breath sulfamethoxazole [From Bactrim] Allergy (Verified 07/20/22 08:30) Hives/Rash trimethoprim [From Bactrim] Allergy (Verified 07/20/22 08:30) Hives/Rash Bactrim DS Allergy (Intermediate, Uncoded 07/20/22 08:30) Nausea/Vomiting Home Medications: Omeprazole 40 mg PO DAILY 08/10/23 Sertraline [Zoloft*] 100 mg PO DAILY 08/10/23 Trazodone [Desyrel*] 50 mg PO BEDTIME 08/10/23 Vericiguat [Verquvo] 20 mg PO DAILY 08/10/23 Albuterol Inhaler [Ventolin Inhaler*] 2 puff IH Q6H PRN 30 Days #1 inh 08/11/23 Amlodipine [Norvasc*] 10 mg PO DAILY 30 Days #30 tab 08/11/23 Buspirone HCl 30 mg PO BID 08/11/23 Hydralazine [Apresoline*] 50 mg PO TID PRN 30 Days #30 tab 08/11/23 Metoprolol Tartrate [Lopressor] 100 mg PO BID 30 Days #60 mg 08/11/23 Mometasone/Formoterol [Dulera 200 Mcg/5 Mcg Inhaler] 2 puff IH BID 30 Days #1 inhaler 08/11/23 Spironolactone [Aldactone*] 25 mg PO BID 30 Days #60 tab 08/11/23 Valsartan [Diovan*] 160 mg PO DAILY tab 08/11/23 Valsartan/Hydrochlorothiazide [Valsartan-Hctz 160-12.5 mg Tab] 1 each PO 30 MIN BEFORE HS #30 mg 08/11/23 Acidophilus/Bulgaricus [Lactinex Packet] 1 each PO DAILY 5 Days #5 packet 10/15/23 Ciprofloxacin HCl [Cipro 500 MG Tablet] 500 mg PO BID #20 tab 01/07/24 Simethicone 125 mg PO TID PRN #30 cap 01/07/24 Review of Systems 10-point ROS is otherwise unremarkable Gastrointestinal: Nausea, Vomiting, Abdominal Pain <Cristina Mueller - Last Filed: 01/06/24 16:47> Physical Examination - Physical Exam General: Alert, In no apparent distress, Oriented x3 HEENT: Atraumatic, Normocephalic Neck: Supple Respiratory: Normal air movement Cardiovascular: No edema, Normal pulses Capillary refill: <2 Seconds Gastrointestinal: Normal bowel sounds, No rebound, No guarding Musculoskeletal: No clubbing Integumentary: No rashes Neurological: Normal speech, Normal tone, Normal affect Lymphatics: No axilla or inguinal lymphadenopathy External genitalia: Deferred Rectal: Deferred - Studies Laboratory Data (last 24 hrs) 01/06/24 01/06/24 10:17 10:17 WBC 9.10 Hgb 13.0 Hct 40.8 Plt Count 169 Sodium 138 Potassium 4.0 BUN 28 H Creatinine 1.11 H Glucose 102 Total Bilirubin 0.5 AST 22 ALT 19 Alkaline Phosphatase 73 Lipase 34 <Cristina Mueller - Last Filed: 01/06/24 16:47> Assessment and Plan - Plan Small bowel obstruction NGT to LIWS as needed for continued vomiting Cipro N.p.o. and advance to clear liquids Consult Dr. Rahman - done Simethicone Gentle IVF Serial KUBs starting in a.m. Past medical history/continue home meds as indicated Hypertension Chronic pain HIV COPD GERD CAD VTE/GI prophylaxis Lovenox/Protonix - Advance Directives Does patient have a Living Will: No Does patient have a Durable POA for Healthcare: No <Cristina Mueller - Last Filed: 01/06/24 16:47> Date of Service: 01/06/24 Patient was seen and examined. Events of the last 24 hours have been noted. Spoke with with FU[facility]ES regarding patient's clinical picture after evaluating and examining the patient independently. I performed a substantial part of the MDM during this patient's care today. I personally made or approved the documented management plan and acknowledge its risk of complications. I agree with the findings and documentation provided in the FUENTES's notes. <Liz Qureshi - Last Filed: 01/09/24 15:42>
[2024-01-06] MEDS ORDERED: IPRATROPIUM BROM 0.5MG/2.5ML ONE (13:22)
[2024-01-06] MEDS: IPRATROPIUM BROM 0.5MG/2.5ML NEB SCH (13:25)
[2024-01-06 14:01] LABS: SARS-CoV-2 Antigen CONTROL BLUE LINE VIS/BG OK; SARS-CoV-2 Antigen Rapid Res Negative (Negative)
[2024-01-06] MEDS: CIPROFLOXACIN 400mg IV 400 MG/200 ML BAG IV SCH (14:05)
[2024-01-06] MEDS: NA CHLORIDE 0.9% 1,000 ML IV SCH (14:05)
[2024-01-06 14:13] VITALS: O2SAT 100
[2024-01-06] MEDS ORDERED: SODIUM CHLORIDE 0.9% 10ML INJ IV PRN (14:37)
[2024-01-06] MEDS: ALPRAZOLAM 1 MG TABLET PO ONE (20:05)
[2024-01-06] MEDS: PANTOPRAZOLE 40 MG INJ IVP SCH (20:06)
[2024-01-06] MEDS: LACTOBACILLUS/ACIDOPHILUS TAB PO SCH (20:06)
[2024-01-06] MEDS: SIMETHICONE 80 MG CHEWABLE TAB PO PRN (22:29)
[2024-01-06 22:43] LABS: Specific Gravity 1.015 (1.005-1.030); Sqamous Epithelial <5 /HPF (None Seen); Urine Bacteria None Seen /HPF (<20); Urine Bilirubin NEGATIVE (Negative); Urine Blood Negative (Negative); Urine Clarity Turbid (Clear); Urine Color Light-Yellow (Yellow); Urine Crystals Unidentified Few /HPF (None Seen); Urine Culture Reflex Order REFLEXED; Urine Glucose NEGATIVE (Negative); Urine Ketones NEGATIVE (Negative); Urine Microscopic Reflex YN ORDER UMIC; Urine Mucus Slight /HPF (None Seen); Urine Nitrite NEGATIVE (Negative); Urine Protein TRACE (Negative); Urine RBC <5 /HPF (None Seen); Urine Urobilinogen Normal (Normal); Urine WBC >50 /HPF (<5); Urine WBC Clump Rare /HPF (None Seen); Urine pH 5.5 (5.0-7.0)
[2024-01-07] MEDS ORDERED: ONDANSETRON 4 MG/2 ML VIAL IV PRN (03:28)
[2024-01-07] MEDS: ENOXAPARIN 40 MG/0.4 ML SQ SCH (08:08)
[2024-01-07 08:11] LABS: Absolute Eosinophils 0.1 K/uL (0-0.5); Absolute Lymphocytes (CBC) 0.6 K/uL (0.7-4.9); Absolute Monocytes 0.3 K/uL (0.1-1.3); Absolute Neutrophil 2.3 K/uL (1.8-8.0); Basophils % 0.3 % (0-1.3); Hematocrit 33.1 % (36.0-45.0); Hemoglobin 10.5 g/dL (12.0-15.0); Lymphocytes % 18.2 % (15.3-44.8); MCH 27.2 pg (27.0-35.0); MCHC 31.8 g/dL (32.0-36.0); MCV 85.5 fL (80-100); MPV 6.9 fL (7.6-11.3); Monocytes % 10.4 % (3.3-12.3); Neutrophils % 69.1 % (41.7-73.7); Nucleated Red Blood Cells % 0.1 % (0-0); Platelets 115 thou/uL (152-406); RBC Red Blood Cell Count 3.87 M/uL (3.86-4.86); Red Cell Distribution Width 15.7 % (12.1-15.2)
--- NOTE | 2024-01-07 08:22 | RAD REPORT ---
EXAM DESCRIPTION: RAD - Abdomen 1 View (KUB) - 01/07/2024 6:05 am CLINICAL HISTORY: serial exams for partial SBO COMPARISON: Abdomen 1 View (KUB) dated 10/13/2023; Abdomen 1 View (KUB) dated 10/11/2023 FINDINGS: Nonobstructive bowel gas pattern. No acute osseous abnormality.Visualized lungs are unrema rkable.No abnormal calcifications. Colonic gas identified. IMPRESSION: Nonobstructive bowel gas pattern. Colonic gas present. Overall improvement from prior .
[2024-01-07 08:33] LABS: AST/SGOT 17 U/L (15-37); Albumin/Globulin Ratio 0.9 (1.1-1.8); Alkaline Phosphatase 60 U/L (45-117); Anion Gap 8.5 mEq/L (5.0-15.0); BUN Blood Urea Nitrogen 23 mg/dL (7-18); Bicarbonate 23 mEq/L (21-32); Bilirubin Total 0.4 mg/dL (0.2-1.0); Globulin 3.3 g/dL (2.3-3.5); Glomerular Filtration Rate 61 ml/min (=/>90); Glucose Level 88 mg/dL (74-106); HDL Cholesterol 46 mg/dL (40-60); LDL Cholesterol, Calculated 76 mg/dL (<130); LDL Cholesterol,Calc NonReport 76; Phosphorus 3.4 mg/dL (2.5-4.9); Potassium 3.5 mEq/L (3.5-5.1); Protein, Total 6.3 g/dL (6.4-8.2); Sodium Level 139 mEq/L (136-145)
[2024-01-07 08:34] LABS: ALT/SGPT < 14 U/L (13-56)
[2024-01-07] MEDS: POTASSIUM 25 MEQ EFFERV TAB PO ONE (09:29)
[2024-01-07 09:57] VITALS: BP 186/88; TEMP 97.1
--- NOTE | 2024-01-07 10:14 | P.CNS ---
Date of Consult: 01/07/24 Reason for Consult: Enteritis vs PSBO Chief Complaint: Partial small bowel obstruction History of Present Illness: The patient is a 68-year-old female known to me from previous surgery whereby I saw her several years ago for an incarcerated ventral hernia. Ultimately taken to the operating room, had a repair of her hernia successfully. At that time, she does have a longstanding history of multiple abdominal surgeries before. She presents now with a medical history also significant for HIV, hypertension, atrial fibrillation, status post Watchman procedure, chronic diastolic heart failure, who came to the hospital with abdominal pain, nausea, vomiting, which occurred 2 days prior to her admission on 10/10/2023. She notes that she did have a bowel movement the morning she presented to the hospital, which is large and normal at that time. She has had similar episodes before in the past and has multiple small low-grade bowel obstructions before in the past, treated nonoperatively. She states this feels very similar to those before in the past. During my examination, she was admitted over the course of the evening. She felt significantly better. She was continued to pass gas with no nausea or vomiting and her abdominal pain improved significantly by her report. Allergies fentanyl Allergy (Severe, Verified 07/20/22 08:30) Hives adhesive tape Allergy (Verified 07/20/22 08:30) Rash butorphanol tartrate [From Stadol] Allergy (Verified 07/20/22 08:30) confusion metoclopramide HCl [From Reglan] Allergy (Verified 07/20/22 08:30) Shortness of breath sulfamethoxazole [From Bactrim] Allergy (Verified 07/20/22 08:30) Hives/Rash trimethoprim [From Bactrim] Allergy (Verified 07/20/22 08:30) Hives/Rash Bactrim DS Allergy (Intermediate, Uncoded 07/20/22 08:30) Nausea/Vomiting Home Medications: Omeprazole 40 mg PO DAILY 08/10/23 Sertraline [Zoloft*] 100 mg PO DAILY 08/10/23 Trazodone [Desyrel*] 50 mg PO BEDTIME 08/10/23 Vericiguat [Verquvo] 20 mg PO DAILY 08/10/23 Albuterol Inhaler [Ventolin Inhaler*] 2 puff IH Q6H PRN 30 Days #1 inh 08/11/23 Amlodipine [Norvasc*] 10 mg PO DAILY 30 Days #30 tab 08/11/23 Buspirone HCl 30 mg PO BID 08/11/23 Hydralazine [Apresoline*] 50 mg PO TID PRN 30 Days #30 tab 08/11/23 Metoprolol Tartrate [Lopressor] 100 mg PO BID 30 Days #60 mg 08/11/23 Mometasone/Formoterol [Dulera 200 Mcg/5 Mcg Inhaler] 2 puff IH BID 30 Days #1 inhaler 08/11/23 Spironolactone [Aldactone*] 25 mg PO BID 30 Days #60 tab 08/11/23 Valsartan [Diovan*] 160 mg PO DAILY tab 08/11/23 Valsartan/Hydrochlorothiazide [Valsartan-Hctz 160-12.5 mg Tab] 1 each PO 30 MIN BEFORE HS #30 mg 08/11/23 Acidophilus/Bulgaricus [Lactinex Packet] 1 each PO DAILY 5 Days #5 packet 10/15/23 - Past Medical/Surgical History Diabetic: No -: HIV- viral load currently undectable -: CAD -: Bipolar disorder -: Hypertension -: COPD on home O2 @ 2L -: Tobacco abuse -: former Alcohol abuse -: Anemia of chronic disease -: Hyperlipidemia -: GERD with hiatal hernia -: Atrial fibrillation-paroxysmal S/P Watchman procedure -: Chronic diastolic CHF -: Appendectomy Watchman procedure, -: Cholecystectomy -: left and right shoulder rotator cuff repair -: Right foot repair -: Right shoulder replacement -: right wrist -: hiatal hernia repair february 2021 -: right wrist Psychosocial/ Personal History: She lives at home. She is . Family coming to visit from [place] tomorrow - Family History Father Medical History: Heart disease, Hypertension, Lung disease, GI disease, Stroke, Cancer, Liver disease, Kidney disease Notes: Colon cancer Mother Medical History: Hypertension, Lung disease, GI disease, Blood disorders, Other (see notes) Notes: Epilepsy, chronic pain, leukemia - Social History Smoking Status: Current every day smoker Alcohol use: No CD- Drugs: No Caffeine use: No Place of Residence: Home Review of Systems 10-point ROS is otherwise unremarkable Physical Examination Temp Pulse Resp BP Pulse Ox 97.1 F 64 15 186/88 H 92 08/17/24 08:00 01/07/24 08:00 01/07/24 08:00 01/07/24 08:00 01/07/24 08:00 Other Physical/Emotional Findings: Physical Examination: GENERAL: She is awake, alert, oriented. Psychiatric: She is appropriate and conversive, but has slow mentation. HEENT: She is otherwise normocephalic. Her sclerae are anicteric. Her mucous membranes are moist. Oropharynx is clear with poor dentition. Neck: Supple without JVD. Chest: Normal expansion and excursion. Cardiovascular: Regular rate, irregular feeling rhythm on palpation. Respiratory: Clear to auscultation bilaterally. Abdomen: Soft NT, No rebound. No guarding. No focal peritonitis. Well-healed surgical scars were evident. Extremities: No clubbing, cyanosis, edema. Skin: Warm and dry. Laboratory Data (last 24 hrs) 01/06/24 01/06/24 10:17 10:17 WBC 9.10 Hgb 13.0 Hct 40.8 Plt Count 169 Sodium 138 Potassium 4.0 BUN 28 H Creatinine 1.11 H Glucose 102 Total Bilirubin 0.5 AST 22 ALT 19 Alkaline Phosphatase 73 Lipase 34 Imagings Data: Findings likely indicate a mild to moderate partial mechanical small-bowel obstruction. No free intraperitoneal air. - Problems (1) Small bowel obstruction Current Visit: Yes Status: Acute Plan: Patient is a 68-year-old woman known to me from about interactions. She has a history of bowel obstructions before in the past resolved with nonoperative measures. She appears to have more of an enteritis type situation. She has had diarrhea since being at the hospital and has no abdominal pain any longer and has no nausea and is hungry. -Recommend starting p.o. and advance as tolerated from clear liquids to regular diet if tolerating can DC home from a surgical standpoint. -Continue medical management per primary team.
--- NOTE | 2024-01-07 10:27 | P.PN ---
Subjective Date of Service: 01/07/24 Chief Complaint: Partial small bowel obstruction Pt is resting comfortably in bed. She complains of anxiety and requested for clonazepam. KUB shows nonobstructive bowel gas pattern. No other complaint. Review of Systems General: Unremarkable Eyes: Unremarkable ENT: Unremarkable Respiratory: Unremarkable Cardiovascular: Unremarkable Gastrointestinal: Abdominal Pain Genitourinary: Unremarkable Musculoskeletal: Unremarkable Integumentary: Unremarkable Neurological: Unremarkable Lymphatics: Unremarkable Physical Examination - Vital Signs Temperature: 97.1 F Blood Pressure: 186/88 Pulse: 64 Respirations: 15 Pulse Ox (%): 92 - Physical Exam General: Alert, In no apparent distress, Oriented x3 HEENT: Atraumatic, Normocephalic, PERRLA Neck: Supple, 2+ carotid pulse no bruit, JVD not distended Respiratory: Clear to auscultation bilaterally, Normal air movement, Diminished Cardiovascular: No edema, Normal pulses, Regular rate/rhythm Capillary refill: <2 Seconds Gastrointestinal: Normal bowel sounds, Soft and benign, Non-distended Musculoskeletal: No clubbing, No swelling, No contractures Integumentary: No rashes, No breakdown, No significant lesion Neurological: Normal gait, Normal speech, Normal strength at 5/5 x4 extr Lymphatics: No axilla or inguinal lymphadenopathy Other Physical/Emotional Findings: Physical Examination: GENERAL: She is awake, alert, oriented. Psychiatric: She is appropriate and conversive, but has slow mentation. HEENT: She is otherwise normocephalic. Her sclerae are anicteric. Her mucous membranes are moist. Oropharynx is clear with poor dentition. Neck: Supple without JVD. Chest: Normal expansion and excursion. Cardiovascular: Regular rate, irregular feeling rhythm on palpation. Respiratory: Clear to auscultation bilaterally. Abdomen: Soft NT, No rebound. No guarding. No focal peritonitis. Well-healed surgical scars were evident. Extremities: No clubbing, cyanosis, edema. Skin: Warm and dry. - Studies Laboratory Data (last 24 hrs) 01/06/24 01/06/24 10:17 10:17 WBC 9.10 Hgb 13.0 Hct 40.8 Plt Count 169 Sodium 138 Potassium 4.0 BUN 28 H Creatinine 1.11 H Glucose 102 Total Bilirubin 0.5 AST 22 ALT 19 Alkaline Phosphatase 73 Lipase 34 Assessment And Plan - Plan Small bowel obstruction: Pt is tolerating CLD. KUB shows non-obstructive gas pattern. Will advance diet to full liquid diet. Dr. Rahman is following. Continue IVF and Cipro. Anxiety: Will continue buspar Htn: Will continue home med. Chronic pain: Will prn norco. Hx of CAD: Continue home med. Hx of HIV: Stable. Hx of COPD: Stable. Not in exacerbation. Will continue prn duoneb and oxygen. GERD: Protonix DVT prophylaxis: lovenox Code: full Dispo: Will dc once cleared by Gen surgeon.
--- NOTE | 2024-01-07 11:01 | P.DS ---
Admission Date: 01/06/24 Discharge Date: 01/07/24 Reason for Admission: Partial small bowel obstruction Consultations: Dr. Rahman Brief History of Present Illness: Ms. Kolb is a 68 yrs old Female with multiple medical problems including coronary artery disease, COPD, chronic pain, hypertension, hyperlipidemia, HIV, and small bowel obstruction. She presents to the emergency department today via EMS with complaints of Nausea, vomiting, and abdominal pain. She was recently admitted for the same symptoms. She states she has not changed diet, medications, or lifestyle. She does have a past surgical history of cholecystectomy, appendectomy, and hernia repair. We will admit her for observation to attempt advancing diet. She agrees to NG tube only with continued vomiting. Dr. Rahman has been consulted. Labs are pretty unremarkable and similar to baseline. CT imaging shows "mild to moderate partial mechanical small bowel obstruction." Hospital Course: Mrs. Kolb was admitted to the hospital yesterday for a partial small bowel obstruction. Her diet was advanced slowly. Nausea and pain significantly improved. Dr. Rahman evaluated Mrs. Kolb this morning. Her abdomen is soft, bowel sounds positive, KUB this morning shows improvement/no obstruction. She would like to leave this morning and will continue to slowly advance her diet. Urine does show evidence of infection with leukocytosis however she does not want to await culture. Cipro 500 mg p.o. twice daily x 10 days and simethicone 125 mg p.o. 3 times daily to 4 times daily will be prescribed. She is stable for discharge and should follow-up with Dr. Rahman and Dr. Rahman <Cristina Mueller - Last Filed: 01/07/24 11:02> Admission Date: 01/06/24 Discharge Date: 01/07/24 Hospital Course: Pt seen and examined. I agree with the note by the CONCRET[facility] [employer]. KUB shows non-obstructive gas pattern. Pt requested to be discharged. Ok to discharge. <Sandra Mendenhall - Last Filed: 01/07/24 11:06> Disposition: ROUTINE DISCHARGE Discharge Condition: GOOD Vital Signs/Physical Exam: Temp Pulse Resp BP Pulse Ox 97.1 F 64 15 186/88 H 92 01/07/24 10:35 01/07/24 10:35 01/07/24 10:35 01/07/24 10:35 01/07/24 10:35 General: Alert, In no apparent distress, Oriented x3 HEENT: Atraumatic, Normocephalic Neck: Supple, 2+ carotid pulse no bruit Respiratory: Clear to auscultation bilaterally Cardiovascular: No edema, Normal pulses, Regular rate/rhythm Capillary refill: <2 Seconds Gastrointestinal: Soft and benign, No tenderness Musculoskeletal: No clubbing Integumentary: No rashes Neurological: Normal speech, Normal tone, Normal affect Lymphatics: No axilla or inguinal lymphadenopathy External genitalia: Deferred Rectal: Deferred Other Physical/Emotional Findings: Physical Examination: GENERAL: She is awake, alert, oriented. Psychiatric: She is appropriate and conversive, but has slow mentation. HEENT: She is otherwise normocephalic. Her sclerae are anicteric. Her mucous membranes are moist. Oropharynx is clear with poor dentition. Neck: Supple without JVD. Chest: Normal expansion and excursion. Cardiovascular: Regular rate, irregular feeling rhythm on palpation. Respiratory: Clear to auscultation bilaterally. Abdomen: Soft NT, No rebound. No guarding. No focal peritonitis. Well-healed surgical scars were evident. Extremities: No clubbing, cyanosis, edema. Skin: Warm and dry. Laboratory Data at Discharge: WBC 3.30 thou/uL (4.3-10.9) L 01/07/24 06:58 Hgb 10.5 g/dL (12.0-15.0) L D 01/07/24 06:58 Hct 33.1 % (36.0-45.0) L 01/07/24 06:58 Plt Count 115 thou/uL (152-406) L D 01/07/24 06:58 Sodium 139 mEq/L (136-145) 01/07/24 06:58 Potassium 3.5 mEq/L (3.5-5.1) 01/07/24 06:58 BUN 23 mg/dL (7-18) H 01/07/24 06:58 Creatinine 1.01 mg/dL (0.55-1.02) 01/07/24 06:58 Glucose 88 mg/dL (74-106) 01/07/24 06:58 Phosphorus 3.4 mg/dL (2.5-4.9) 01/07/24 06:58 Magnesium 2.0 mg/dL (1.6-2.4) 01/07/24 06:58 Total Bilirubin 0.4 mg/dL (0.2-1.0) 01/07/24 06:58 AST 17 U/L (15-37) 01/07/24 06:58 ALT < 14 U/L (13-56) 01/07/24 06:58 Alkaline Phosphatase 60 U/L (45-117) 01/07/24 06:58 Triglycerides 133 mg/dL (<150) 01/07/24 06:58 Cholesterol 149 mg/dL (<200) 01/07/24 06:58 HDL Cholesterol 46 mg/dL (40-60) 01/07/24 06:58 Cholesterol/HDL Ratio 3.24 01/07/24 06:58 Lipase 34 U/L (13-75) 01/06/24 10:17 <Mueller,Cristina Alvaro - Last Filed: 01/07/24 11:02> Vital Signs/Physical Exam: Temp Pulse Resp BP Pulse Ox 97.1 F 64 15 186/88 H 92 01/07/24 10:35 01/07/24 10:35 01/07/24 10:35 01/07/24 10:35 01/07/24 10:35 Laboratory Data at Discharge: WBC 3.30 thou/uL (4.3-10.9) L 01/07/24 06:58 Hgb 10.5 g/dL (12.0-15.0) L D 01/07/24 06:58 Hct 33.1 % (36.0-45.0) L 01/07/24 06:58 Plt Count 115 thou/uL (152-406) L D 01/07/24 06:58 Sodium 139 mEq/L (136-145) 01/07/24 06:58 Potassium 3.5 mEq/L (3.5-5.1) 01/07/24 06:58 BUN 23 mg/dL (7-18) H 01/07/24 06:58 Creatinine 1.01 mg/dL (0.55-1.02) 01/07/24 06:58 Glucose 88 mg/dL (74-106) 01/07/24 06:58 Phosphorus 3.4 mg/dL (2.5-4.9) 01/07/24 06:58 Magnesium 2.0 mg/dL (1.6-2.4) 01/07/24 06:58 Total Bilirubin 0.4 mg/dL (0.2-1.0) 01/07/24 06:58 AST 17 U/L (15-37) 01/07/24 06:58 ALT < 14 U/L (13-56) 01/07/24 06:58 Alkaline Phosphatase 60 U/L (45-117) 01/07/24 06:58 Triglycerides 133 mg/dL (<150) 01/07/24 06:58 Cholesterol 149 mg/dL (<200) 01/07/24 06:58 HDL Cholesterol 46 mg/dL (40-60) 01/07/24 06:58 Cholesterol/HDL Ratio 3.24 01/07/24 06:58 Lipase 34 U/L (13-75) 01/06/24 10:17 <Sandra Mendenhall - Last Filed: 01/07/24 11:06> Diet: [place] Activity: Ad pricila <Cristina Mueller - Last Filed: 01/07/24 11:02> <Sandra Mendenhall - Last Filed: 01/07/24 11:06> Home Medications: Omeprazole 40 mg PO DAILY 08/10/23 Sertraline [Zoloft*] 100 mg PO DAILY 08/10/23 Trazodone [Desyrel*] 50 mg PO BEDTIME 08/10/23 Vericiguat [Verquvo] 20 mg PO DAILY 08/10/23 Albuterol Inhaler [Ventolin Inhaler*] 2 puff IH Q6H PRN 30 Days #1 inh 08/11/23 Amlodipine [Norvasc*] 10 mg PO DAILY 30 Days #30 tab 08/11/23 Buspirone HCl 30 mg PO BID 08/11/23 Hydralazine [Apresoline*] 50 mg PO TID PRN 30 Days #30 tab 08/11/23 Metoprolol Tartrate [Lopressor] 100 mg PO BID 30 Days #60 mg 08/11/23 Mometasone/Formoterol [Dulera 200 Mcg/5 Mcg Inhaler] 2 puff IH BID 30 Days #1 inhaler 08/11/23 Spironolactone [Aldactone*] 25 mg PO BID 30 Days #60 tab 08/11/23 Valsartan [Diovan*] 160 mg PO DAILY tab 08/11/23 Valsartan/Hydrochlorothiazide [Valsartan-Hctz 160-12.5 mg Tab] 1 each PO 30 MIN BEFORE HS #30 mg 08/11/23 Acidophilus/Bulgaricus [Lactinex Packet] 1 each PO DAILY 5 Days #5 packet 10/15/23 Ciprofloxacin HCl [Cipro 500 MG Tablet] 500 mg PO BID #20 tab 01/07/24 Simethicone 125 mg PO TID PRN #30 cap 01/07/24 New Medications: Ciprofloxacin HCl [Cipro 500 MG Tablet] 500 mg PO BID #20 tab Simethicone 125 mg PO TID PRN #30 cap PRN Reason: Abdominal Cramps Physician Discharge Instructions: Mrs. Kolb was admitted to the hospital yesterday for a partial small bowel obstruction. Her diet was advanced slowly. Nausea and pain significantly improved. Dr. Rahman evaluated Mrs. Kolb this morning. Her abdomen is soft, bowel sounds positive, KUB this morning shows improvement/no obstruction. She would like to leave this morning and will continue to slowly advance her diet. Urine does show evidence of infection with leukocytosis however she does not want to await culture. Cipro 500 mg p.o. twice daily x 10 days and simethicone 125 mg p.o. 3 times daily to 4 times daily will be prescribed. She is stable for discharge and should follow-up with Dr. Rahman and Dr. Rahman Followup: Lacey VARELA,Urmila-Francisco Peterson DO [Primary Care Provider] - Chance Rahman MD [ACTIVE - CAN ADMIT] -
[2024-01-07] MEDS ORDERED: METOPROLOL TAR 50 MG TAB PO SCH (21:00)
[2024-01-07] MEDS ORDERED: SPIRONOLACTONE 25 MG TABLET PO SCH (21:00)
[2024-01-07] MEDS ORDERED: BUSPIRONE HCL 15 MG TABLET PO SCH (21:00)
[2024-01-08] MEDS ORDERED: SERTRALINE HCL 100 MG TAB PO SCH (09:00)
[2024-01-08] MEDS ORDERED: AMLODIPINE 10 MG TAB PO SCH (09:00)
== END 2024-01-07 11:45 | disposition home or self-care (01) | DRG 389 ==
LOC: ER 09:48 → ERHOLD 12:29 → 2ND 13:25
PROVIDERS: ADMIT Hospitalist; ATTEND Hospitalist
DX: K56.600 Partial intestinal obstruction, unspecified as to cause (principal); I50.32 Chronic diastolic (congestive) heart failure; D63.8 Anemia in other chronic diseases classified elsewhere; I11.0 Hypertensive heart disease with heart failure; Z99.81 Dependence on supplemental oxygen; F31.9 Bipolar disorder, unspecified; J44.9 Chronic obstructive pulmonary disease, unspecified; Z21 Asymptomatic human immunodeficiency virus [HIV] infection status; I48.0 Paroxysmal atrial fibrillation; K21.9 Gastro-esophageal reflux disease without esophagitis; I25.10 Atherosclerotic heart disease of native coronary artery without angina pectoris; E78.5 Hyperlipidemia, unspecified; G89.29 Other chronic pain; Z11.52 Encounter for screening for COVID-19
CPT/HCPCS: 36415; 74018; 74176; 80053; 80061; 81001; 83690; 83735; 84100; 84443; 85025; 87086; 87088; 87804; 87811; 94640; 96374; 96375; 99285; J0744; J2405; J2470; J7030; J7644

== ENCOUNTER 2024-01-08 11:34 | Emergency (ER) | payer OTHER ==
--- NOTE | 2024-01-08 12:28 | RAD REPORT ---
EXAM DESCRIPTION: CTAbdomen Pelvis Wo Contrast - 01/08/2024 12:14 pm CLINICAL HISTORY: Abd pain;Abdominal distention COMPARISON: Abdomen Pelvis Wo Contrast dated 01/06/2024; Stone Protocol dated 10/21/2023; Abdomen Pelvis Wo Contrast dated 10/14/2023; Abdomen Pelvis W Contrast dated 06/19/2023 TECHNIQUE: CT of the abdomen and pelvis was performed without contrast. All CT scans are performed using dose optimization technique as appropriate and may include automated exposure control or mA/KV adjustment according to patient size. FINDINGS: Lower chest: Cardiomegaly. Surgical changes at the gastroesophageal junction. Coronary art jon calcifications . Liver: No acute abnormality or suspicious lesions. Biliary: Cholecystectomy. Stomach: No significant focal abnormality. Duodenum: No significant focal abnormality. Pancreas: No significant abnormality. Spleen: No significant abnormality. Adrenal: No suspicious lesions. Kidney/ureter: No hydronephrosis. No renal calculi. Bilateral renal lesions which are most consistent with cysts. Retroperitoneum: No retroperitoneal adenopathy. Vascular: No aneurysm. Bowel: Moderate stool.. Previously noted small bowel distention centrally and small air-fluid levels in the colon have improved from prior. No evidence of bowel obstruction identified. Peritoneum: No ascites or free air. Bladder: Grossly unremarkable. Reproductive: No adnexal masses. Bones: No acute fracture. Other: n/a IMPRESSION: No acute intra-abdominal or pelvic finding. Small bowel distension identified on the CT is no longer seen. This may have represented either a resolved partial small bowel obstruc tion or enteritis.
[2024-01-08] MEDS ORDERED: NA CHLORIDE 0.9% 500 ML ONE (13:04)
[2024-01-08] MEDS ORDERED: MORPHINE 4 MG/ML SYR ONE ×2 (13:04→14:15)
[2024-01-08] MEDS ORDERED: ONDANSETRON 4 MG/2 ML VIAL ONE (13:04)
[2024-01-08 13:12] LABS: Absolute Eosinophils 0.1 K/uL (0-0.5); Absolute Lymphocytes (CBC) 0.7 K/uL (0.7-4.9); Absolute Monocytes 0.5 K/uL (0.1-1.3); Basophils % 0.3 % (0-1.3); Eosinophils % 1.1 % (0-4.4); Hematocrit 35.5 % (36.0-45.0); Hemoglobin 11.2 g/dL (12.0-15.0); Lymphocytes % 12.8 % (15.3-44.8); MCH 27.2 pg (27.0-35.0); MCHC 31.6 g/dL (32.0-36.0); MCV 86.1 fL (80-100); MPV 7.1 fL (7.6-11.3); Monocytes % 9.5 % (3.3-12.3); Neutrophils % 76.3 % (41.7-73.7); Platelets 138 thou/uL (152-406); RBC Red Blood Cell Count 4.13 M/uL (3.86-4.86); Red Cell Distribution Width 15.8 % (12.1-15.2)
[2024-01-08 13:16] LABS: Specific Gravity 1.023 (1.005-1.030); Sqamous Epithelial <5 /HPF (None Seen); Transitional Epithelial <5 /HPF (None Seen); Urine Bacteria 20-50 /HPF (<20); Urine Bilirubin NEGATIVE (Negative); Urine Blood Negative (Negative); Urine Clarity Extremely Turbid (Clear); Urine Color Yellow (Yellow); Urine Culture Reflex Order REFLEXED; Urine Glucose NEGATIVE (Negative); Urine Ketones NEGATIVE (Negative); Urine Microscopic Reflex YN ORDER UMIC; Urine Mucus Slight /HPF (None Seen); Urine Nitrite NEGATIVE (Negative); Urine Protein TRACE (Negative); Urine Urobilinogen 1+ (Normal); Urine WBC >50 /HPF (<5)
[2024-01-08 13:26] LABS: Albumin 3.5 g/dL (3.4-5.0); Albumin/Globulin Ratio 0.9 (1.1-1.8); Anion Gap 8.5 mEq/L (5.0-15.0); Bilirubin Total 0.3 mg/dL (0.2-1.0); Globulin 3.8 g/dL (2.3-3.5); Potassium 3.5 mEq/L (3.5-5.1); Protein, Total 7.3 g/dL (6.4-8.2)
[2024-01-08] MEDS ORDERED: CEFTRIAXONE 1000 MG/VIAL ONE (16:45)
[2024-01-08] MEDS ORDERED: CIPROFLOXACIN HCL 500 MG TAB ONE (16:46)
--- NOTE | 2024-01-08 16:46 | EDPHYS ---
Physician Documentation [facility] Name: Marjan Kolb Age: 68 yrs Sex: Female : 1955 Arrival Date: 01/08/2024 Time: 11:34 Bed 11 Private MD: Justus Cervantes HPI: 01/07 16:35 This 68 yrs old Female presents to ER via Ambulatory with complaints of thomas Abdominal Pain. 16:35 The patient presents with abdominal pain in the lower abdomen. Onset: The thomas symptoms/episode began/occurred 1 day(s) ago. The patient presents with urinary symptoms, dysuria. Onset: The symptoms/episode began/occurred 2 day(s) ago. Modifying factors: The symptoms are alleviated by remaining still, the symptoms are aggravated by nothing. Associated signs and symptoms: Pertinent positives: constipation, dysuria. Severity of symptoms: At their worst the symptoms were mild, in the emergency department the symptoms are unchanged. The patient is not sexually active. Modifying factors: The symptoms are alleviated by nothing, the symptoms are aggravated by movement, nothing. Severity of pain: At its worst the pain was mild in the emergency department the pain is unchanged. The patient has experienced similar episodes in the past, several times. Historical: - Allergies: 11:49 Azithromycin; db 11:49 Bactrim; db 11:49 butorphanol; db 11:49 Fentanyl; db 11:49 Reglan; db 11:49 Sulfa (Sulfonamide Antibiotics); db 11:49 TRIMETHOPRIM; db - PMHx: 11:49 Hypercholesterolemia; Hypertensive disorder; db - Immunization history:: Adult Immunizations unknown. - Infectious Disease History:: Denies. - Social history:: Smoking status: Patient reports the use of cigarette tobacco products, smokes one pack cigarettes per day. - Family history:: not pertinent. ROS: 16:35 Constitutional: Negative for fever, chills, and weight loss, Eyes: Negative for injury, thomas pain, redness, and discharge, ENT: Negative for injury, pain, and discharge, Neck: Negative for injury, pain, and swelling, Cardiovascular: Negative for chest pain, palpitations, and edema, Respiratory: Negative for shortness of breath, cough, wheezing, and pleuritic chest pain, Back: Negative for injury and pain, MS/Extremity: Negative for injury and deformity, Skin: Negative for injury, rash, and discoloration, Neuro: Negative for headache, weakness, numbness, tingling, and seizure, Psych: Negative for depression, anxiety, suicide ideation, homicidal ideation, and hallucinations, Allergy/Immunology: Negative for hives, rash, and allergies, Endocrine: Negative for neck swelling, polydipsia, polyuria, polyphagia, and marked weight changes, Hematologic/Lymphatic: Negative for swollen nodes, abnormal bleeding, and unusual bruising, 16:35 Abdomen/GI: Positive for abdominal pain, nausea, abdominal cramps, Exam: 16:35 Constitutional: This is a well developed, well nourished patient who is awake, alert, thomas and in no acute distress. Head/Face: Normocephalic, atraumatic. Eyes: Pupils equal round and reactive to light, extra-ocular motions intact. Lids and lashes normal. Conjunctiva and sclera are non-icteric and not injected. Cornea within normal limits. Periorbital areas with no swelling, redness, or edema. ENT: Nares patent. No nasal discharge, no septal abnormalities noted. Tympanic membranes are normal and external auditory canals are clear. Oropharynx with no redness, swelling, or masses, exudates, or evidence of obstruction, uvula midline. Mucous membranes moist. Neck: Trachea midline, no thyromegaly or masses palpated, and no cervical lymphadenopathy. Supple, full range of motion without nuchal rigidity, or vertebral point tenderness. No Meningismus. Chest/axilla: Normal chest wall appearance and motion. Nontender with no deformity. No lesions are appreciated. Cardiovascular: Regular rate and rhythm with a normal S1 and S2. No gallops, murmurs, or rubs. Normal PMI, no JVD. No pulse deficits. Respiratory: Lungs have equal breath sounds bilaterally, clear to auscultation and percussion. No rales, rhonchi or wheezes noted. No increased work of breathing, no retractions or nasal flaring. Back: No spinal tenderness. No costovertebral tenderness. Full range of motion. Female : Normal external genitalia. Skin: Warm, dry with normal turgor. Normal color with no rashes, no lesions, and no evidence of cellulitis. MS/ Extremity: Pulses equal, no cyanosis. Neurovascular intact. Full, normal range of motion. Neuro: Awake and alert, GCS 15, oriented to person, place, time, and situation. Cranial nerves II-XII grossly intact. Motor strength 5/5 in all extremities. Sensory grossly intact. Cerebellar exam normal. Normal gait. Psych: Awake, alert, with orientation to person, place and time. Behavior, mood, and affect are within normal limits. 16:35 Abdomen/GI: Inspection: abdomen appears normal, Bowel sounds: normal, Palpation: mild abdominal tenderness, in the right upper quadrant, left upper quadrant, right lower quadrant and left lower quadrant, Liver: no appreciated palpable abnormalities, Hernia: not appreciated, 16:35 Musculoskeletal/extremity: DVT Exam: No signs of deep vein thrombosis. no pain, no swelling, no tenderness, negative Homans' sign noted on exam, no appreciated bluish discoloration, no erythema, no increased warmth, Vital Signs: 11:49 BP 201 / 91; Pulse 85; Resp 18; Temp 98; Pulse Ox 95% ; Weight 79.38 kg; Height 5 ft. 4 db in. ; 13:01 BP 179 / 94; Pulse 81; Resp 18; Pulse Ox 96% on R/A; Pain 8/10; tl4 13:30 BP 177 / 79; Pulse 64; Resp 18; Pulse Ox 96% on R/A; tl4 14:00 BP 169 / 81; Pulse 61; Resp 18; Pulse Ox 95% on R/A; tl4 15:00 BP 164 / 99; Pulse 63; Resp 18; Pulse Ox 97% on R/A; tl4 16:00 BP 166 / 84; Pulse 65; Resp 18; Pulse Ox 96% on R/A; tl4 17:15 BP 165 / 79; Pulse 60; Resp 18; Temp 97.9(O); Pulse Ox 97% on R/A; tl4 11:49 Body Mass Index 30.04 (79.38 kg, 162.56 cm) db 13:01 Pain Scale: Adult tl4 MDM: 11:54 Patient medically screened. thomas 16:38 Differential diagnosis: nonspecific abdominal pain, urinary tract infection, bowel thomas obstruction, coronary artery disease, Cholelithiasis, diverticulitis, gastritis, gastroesophageal reflux disease, non-specific abd pain, pancreatitis, Peptic Ulcer Disease. Data reviewed: vital signs, nurses notes, lab test result(s), radiologic studies, CT scan. Consideration of Admission/Observation Escalation of care including admission/observation considered. I considered the following discharge prescriptions or medication management in the emergency department Medications were administered in the Emergency Department. See MAR. Test considered but Not performed: EKG: NO EKG. Care significantly affected by the following chronic conditions: Hypertension, Cancer, HYPERCHOLESTEROL, HIV. 01/07 11:57 Order name: CBC with Diff; Complete Time: 16:28 [facility] 01/07 11:57 Order name: CMP; Complete Time: 16:28 [facility] 01/07 11:57 Order name: Lipase; Complete Time: 16:28 [facility] 01/07 11:57 Order name: Urinalysis w/ reflexes; Complete Time: 16:28 [facility] 01/07 11:57 Order name: CT Abd/Pelvis - Without Contrast; Complete Time: 16:28 [facility] 01/07 11:57 Order name: IV Saline Lock; Complete Time: 13:01 [facility] 01/07 11:57 Order name: Labs collected and sent; Complete Time: 13:01 [facility] Administered Medications: 13:15 Drug: Ondansetron IVP 4 mg IVP once; over 2 minutes {Note: administered in right tl4 ankle.} Route: IVP; Infused Over: 2 mins; Site: Other; 13:42 Follow up: Response: No adverse reaction tl4 13:16 Drug: morphine IVP or IV 4 mg IVP once over 4 mins {Note: administered right ankle .} tl4 Route: IVP; Infused Over: 4 mins; Site: Other; 13:42 Follow up: Response: No adverse reaction tl4 13:16 Drug: NS 0.9% IV 500 ml IV at bolus once {Note: infusing in right ankle.} Route: IV; tl4 Rate: bolus; Site: Other; Delivery: Primary tubing; 13:42 Follow up: Response: No adverse reaction; IV Status: Completed infusion; IV Intake: tl4 500ml 14:16 Drug: morphine IVP or IV 4 mg IVP once over 4 mins {Note: administered right foot.} tl4 Route: IVP; Infused Over: 4 mins; Site: Other; 14:54 Follow up: Response: No adverse reaction; Pain is decreased tl4 16:47 Drug: Rocephin IV 1 grams IV at per protocol once; Given slow IV push per pharmacy tl4 instructions {Note: administered right ankle.} Route: IV; Rate: per protocol; Site: Other; 17:12 Follow up: Response: No adverse reaction; IV Status: Completed infusion; IV Intake: [id number] 16:48 Drug: Ciprofloxacin PO 500 mg PO once Route: PO; tl4 17:12 Follow up: Response: No adverse reaction tl4 Disposition Summary: 01/08/24 16:45 Discharge Ordered Notes: Location: Home thomas Problem: new thomas Symptoms: have improved thomas Condition: Stable thomas Diagnosis - Abdominal pain, Generalized thomas - UTI/ Urinary tract infection, site not specified thomas Followup: thomas - With: Private Physician - When: 2 - 3 days - Reason: Recheck today's complaints, Continuance of care, Re-evaluation by your physician Discharge Instructions: - Discharge Summary Sheet thomas - Abdominal Pain, Adult thomas - Dysuria thomas - Urinary Tract Infection, Adult thomas - Urinary Tract Infection, Adult, [id number] thomas - Abdominal Pain, Adult, [id number] thomas Forms: - Medication Reconciliation Form thomas - Antibiotic Education thomas - Prescription Opioid Use thomas - Patient Portal Instructions thomas - Leadership Thank You Letter [facility] Prescriptions: - ondansetron 4 mg Oral Tablet,disintegrating - take 1 tablet ORAL route every 8 to 12 hours for 5 days as needed for nausea thomas and vomiting; 20 tablet; Refills: 0, Product Selection Permitted - Cipro 250 mg Oral tablet - take 1 tablet ORAL route every 12 hours; 10 tablet; Refills: 0, Product thomas Selection Permitted - dicyclomine 10 mg/5 mL Oral solution - take 10 milliliters ORAL route 4 times per day; 180 milliliter; Refills: 0, thomas Product Selection Permitted Signatures: Dispatcher [employer] Justus Long MD MD cha Benton, Danielle, RN RN db Logdahl, Toni, RN RN tl4 Corrections: (The following items were deleted from the chart) 11:59 11:59 Abdomen Pelvis Wo Con+CT.RAD.BRZ ordered. JENN BARAJAS
--- NOTE | 2024-01-08 16:46 | ER ---
Nurse's Notes [facility] Name: Marjan Kolb Age: 68 yrs Sex: Female : 1955 Arrival Date: 01/08/2024 Time: 11:34 Bed 11 Private MD: Diagnosis: Abdominal pain, Generalized;UTI/ Urinary tract infection, site not specified Presentation: 01/07 11:46 Chief complaint: Patient states: ABD PAIN RECENTLY ADMITTED FOR BOWEL OBSTRUCTION LEFT db AMA YESTERDAY. TODAY HAVING PAIN. STATES DID EAT AND THEN STARTED HAVING PAIN. Coronavirus screen: Client denies travel out of the [place] in the last 14 days. At this time, the client does not indicate any symptoms associated with coronavirus-19. Ebola Screen: Patient negative for fever greater than or equal to 101.5 degrees Fahrenheit, and additional compatible Ebola Virus Disease symptoms Patient denies exposure to infectious person. Patient denies travel to an Ebola-affected area in the 21 days before illness onset. No symptoms or risks identified at this time. Initial Sepsis Screen: Does the patient meet any 2 criteria? No. Patient's initial sepsis screen is negative. Does the patient have a suspected source of infection? No. Patient's initial sepsis screen is negative. Risk Assessment: Do you want to hurt yourself or someone else? Patient reports no desire to harm self or others. Onset of symptoms was January 08, 2024. 11:46 Method Of Arrival: Ambulatory db 11:46 Acuity: BLAYNE 3 db Triage Assessment: 11:49 General: Appears in no apparent distress. uncomfortable, Behavior is calm, cooperative. db Pain: Complains of pain in abdomen. Neuro: Level of Consciousness is awake, alert, obeys commands, Oriented to person, place, time, situation. Respiratory: Airway is patent Respiratory effort is even, unlabored, Respiratory pattern is regular, symmetrical. GI: Abdomen is non-distended, Reports lower abdominal pain, upper abdominal pain. Historical: - Allergies: 11:49 Azithromycin; db 11:49 Bactrim; db 11:49 butorphanol; db 11:49 Fentanyl; db 11:49 Reglan; db 11:49 Sulfa (Sulfonamide Antibiotics); db 11:49 TRIMETHOPRIM; db - PMHx: 11:49 Hypercholesterolemia; Hypertensive disorder; db - Immunization history:: Adult Immunizations unknown. - Infectious Disease History:: Denies. - Social history:: Smoking status: Patient reports the use of cigarette tobacco products, smokes one pack cigarettes per day. - Family history:: not pertinent. Screenin:00 [facility] ED Fall Risk Assessment (Adult) History of falling in the last 3 months, tl4 including since admission No falls in past 3 months (0 pts) Confusion or Disorientation No (0 pts) Intoxicated or Sedated No (0 pts) Impaired Gait No (0 pts) Mobility Assist Device Used No (0 pt) Altered Elimination No (0 pt) Score/Fall Risk Level 0 - 2 = Low Risk Oriented to surroundings, Maintained a safe environment, Educated pt \T\ family on fall prevention, incl call for assistance when getting out of bed, Assessed \T\ reinforced patient's understanding of fall precautions. Abuse screen: Denies threats or abuse. Denies injuries from another. Nutritional screening: No deficits noted. Tuberculosis screening: No symptoms or risk factors identified. Assessment: 12:47 General: Appears in no apparent distress. Behavior is calm, cooperative. Pain: tl4 Complains of pain in abdomen Quality of pain is described as aching, crampy. Neuro: Level of Consciousness is awake, alert, obeys commands, Oriented to person, place, time, situation, Moves all extremities. Full function Gait is steady, Speech is normal, Facial symmetry appears normal. Cardiovascular: Capillary refill < 3 seconds Patient's skin is warm and dry. Respiratory: Airway is patent Respiratory effort is even, unlabored, Respiratory pattern is regular, symmetrical. GI: Bowel sounds present X 4 quads. diminished in right upper quadrant, left upper quadrant, right lower quadrant and left lower quadrant. GI: Abd is soft Abdomen is tender to palpation X 4 quads. : No signs and/or symptoms were reported regarding the genitourinary system. EENT: No signs and/or symptoms were reported regarding the EENT system. Derm: No signs and/or symptoms reported regarding the dermatologic system. Musculoskeletal: No signs and/or symptoms reported regarding the musculoskeletal system. 13:43 Reassessment: Patient and/or family updated on plan of care and expected duration. Pain tl4 level reassessed. Patient is alert, oriented x 3, equal unlabored respirations, skin warm/dry/pink. Pt continues to complain of pain, Dr Kolb aware. Pt denies any other needs. Call jimenez at bedside. Will continue to monitor. 14:31 Reassessment: Patient and/or family updated on plan of care and expected duration. Pain tl4 level reassessed. Patient is alert, oriented x 3, equal unlabored respirations, skin warm/dry/pink. Pt c/o pain, Dr Kolb aware, orders given. Pt denies any other needs at this time. Will continue to monitor. 15:39 Reassessment: Patient and/or family updated on plan of care and expected duration. Pain tl4 level reassessed. Patient is alert, oriented x 3, equal unlabored respirations, skin warm/dry/pink. Pt updated on status. Pt denies any needs. Call jimenez at bedside. Will continue to monitor. 16:26 Reassessment: Patient appears in no apparent distress at this time. Patient and/or db family updated on plan of care and expected duration. Pain level reassessed. Patient is alert, oriented x 3, equal unlabored respirations, skin warm/dry/pink. pt provided food. Dr. Kolb approved. Vital Signs: 11:49 BP 201 / 91; Pulse 85; Resp 18; Temp 98; Pulse Ox 95% ; Weight 79.38 kg; Height 5 ft. 4 db in. ; 13:01 BP 179 / 94; Pulse 81; Resp 18; Pulse Ox 96% on R/A; Pain 8/10; tl4 13:30 BP 177 / 79; Pulse 64; Resp 18; Pulse Ox 96% on R/A; tl4 14:00 BP 169 / 81; Pulse 61; Resp 18; Pulse Ox 95% on R/A; tl4 15:00 BP 164 / 99; Pulse 63; Resp 18; Pulse Ox 97% on R/A; tl4 16:00 BP 166 / 84; Pulse 65; Resp 18; Pulse Ox 96% on R/A; tl4 17:15 BP 165 / 79; Pulse 60; Resp 18; Temp 97.9(O); Pulse Ox 97% on R/A; tl4 11:49 Body Mass Index 30.04 (79.38 kg, 162.56 cm) db 13:01 Pain Scale: Adult tl4 ED Course: 11:37 Patient arrived in ED. mg5 11:49 Triage completed. db 11:49 Arm band placed on Patient placed in an exam room. db 11:54 Justus Kolb MD is Attending Physician. thomas 12:16 CT Abd/Pelvis - Without Contrast In Process Unspecified. EDMS 12:47 Arron Mondragon, ASHLEY is Primary Nurse. tl4 12:59 No provider procedures requiring assistance completed. Initial lab(s) drawn, by me, tl4 sent to lab. Urine collected: clean catch specimen, clear. Inserted saline lock: 22 gauge in right ,using aseptic technique. ankle Blood collected. Flushed with 10 mL NS. 13:00 Patient has correct armband on for positive identification. Placed in gown. Bed in low tl4 position. Call light in reach. Side rails up X 1. Provided Education on: ed process, call jimenez. Client placed on continuous cardiac and pulse oximetry monitoring. NIBP monitoring applied. Door closed. Noise minimized. Lights dimmed. Moved to private room. Warm blanket given. Pillow given. 13:01 CBC with Diff Sent. tl4 13:01 CMP Sent. tl4 13:01 Lipase Sent. tl4 13:02 Urinalysis w/ reflexes Sent. tl4 17:12 IV discontinued, intact, bleeding controlled, No redness/swelling at site. Pressure tl4 dressing applied. Administered Medications: 13:15 Drug: Ondansetron IVP 4 mg IVP once; over 2 minutes {Note: administered in right tl4 ankle.} Route: IVP; Infused Over: 2 mins; Site: Other; 13:42 Follow up: Response: No adverse reaction tl4 13:16 Drug: morphine IVP or IV 4 mg IVP once over 4 mins {Note: administered right ankle .} tl4 Route: IVP; Infused Over: 4 mins; Site: Other; 13:42 Follow up: Response: No adverse reaction tl4 13:16 Drug: NS 0.9% IV 500 ml IV at bolus once {Note: infusing in right ankle.} Route: IV; tl4 Rate: bolus; Site: Other; Delivery: Primary tubing; 13:42 Follow up: Response: No adverse reaction; IV Status: Completed infusion; IV Intake: tl4 500ml 14:16 Drug: morphine IVP or IV 4 mg IVP once over 4 mins {Note: administered right foot.} tl4 Route: IVP; Infused Over: 4 mins; Site: Other; 14:54 Follow up: Response: No adverse reaction; Pain is decreased tl4 16:47 Drug: Rocephin IV 1 grams IV at per protocol once; Given slow IV push per pharmacy tl4 instructions {Note: administered right ankle.} Route: IV; Rate: per protocol; Site: Other; 17:12 Follow up: Response: No adverse reaction; IV Status: Completed infusion; IV Intake: [id number] 16:48 Drug: Ciprofloxacin PO 500 mg PO once Route: PO; tl4 17:12 Follow up: Response: No adverse reaction tl4 Medication: 13:00 VIS not applicable for this client. tl4 Intake: 13:42 IV: 500ml; Total: 500ml. tl4 17:12 IV: 10ml; Total: 510ml. tl4 Outcome: 16:45 Discharge ordered by . thomas 17:14 Discharged to home ambulatory, tl4 17:14 Condition: stable 17:14 Discharge instructions given to patient, Instructed on discharge instructions, follow up and referral plans. medication usage, Demonstrated understanding of instructions, follow-up care, medications, Prescriptions given X 3, 17:14 Patient left the ED. tl4 Signatures: Dispatcher [employer] EDTX Justus Kolb MD MD cha Benton, Danielle, RN RN Connie Collins mg5 Arron Mondragon RN RN tl4 Corrections: (The following items were deleted from the chart) 13:16 13:13 NS 0.9% IV 500 ml IV at bolus in Other via Primary tubing; Infusing in right foot tl4 tl4 17:15 16:00 BP 165 / 79; Pulse 60bpm; Resp 18bpm; Pulse Ox 97% RA; Temp 97.9F Oral; tl4 tl4
[2024-01-08 17:42] VITALS: BP 165/79; TEMP 97.9; O2SAT 97
== END 2024-01-08 17:14 | disposition home or self-care (01) ==
LOC: ER 11:34
DX: R10.84 Generalized abdominal pain (principal); N39.0 Urinary tract infection, site not specified; I10 Essential (primary) hypertension; F17.210 Nicotine dependence, cigarettes, uncomplicated; Z21 Asymptomatic human immunodeficiency virus [HIV] infection status
CPT/HCPCS: 96365; 85025; 81001; 36415; 83690; 80053; 74176; 96375; 99284; J2405; J7040; J0696

== ENCOUNTER 2024-01-10 09:58 | Emergency (ER) | payer OTHER ==
[2024-01-10 10:32] LABS: Absolute Lymphocytes (CBC) 0.6 K/uL (0.7-4.9); Absolute Monocytes 0.6 K/uL (0.1-1.3); Absolute Neutrophil 5.7 K/uL (1.8-8.0); Basophils % 0.4 % (0-1.3); Eosinophils % 0.3 % (0-4.4); Hematocrit 36.2 % (36.0-45.0); Hemoglobin 11.4 g/dL (12.0-15.0); MCHC 31.5 g/dL (32.0-36.0); MCV 85.6 fL (80-100); MPV 7.1 fL (7.6-11.3); Monocytes % 9.1 % (3.3-12.3); Neutrophils % 82.2 % (41.7-73.7); Nucleated Red Blood Cells % 0.1 % (0-0); Platelets 121 thou/uL (152-406); RBC Red Blood Cell Count 4.22 M/uL (3.86-4.86)
[2024-01-10 10:48] LABS: Albumin 3.7 g/dL (3.4-5.0); Albumin/Globulin Ratio 0.9 (1.1-1.8); Anion Gap 8.4 mEq/L (5.0-15.0); Bilirubin Total 0.7 mg/dL (0.2-1.0); Globulin 3.9 g/dL (2.3-3.5); Potassium 3.4 mEq/L (3.5-5.1); Protein, Total 7.6 g/dL (6.4-8.2)
--- NOTE | 2024-01-10 10:48 | RAD REPORT ---
EXAM DESCRIPTION: CT - Head Brain Wo Cont - 01/10/2024 10:36 am CLINICAL HISTORY: hallucinations,;Headache COMPARISON: Head Brain Wo Cont dated 12/20/2023; Head Brain Wo Cont dated 12/16/2023 TECHNIQUE: All CT scans are performed using dose optimization technique as appropriate and may inclu de automated exposure control or mA/KV adjustment according to patient size. FINDINGS: No intracranial hemorrhage, hydrocephalus or extra-axial fluid collection.Mild generalized brain atrophy is present with moderate periventricular and deep white matter chronic microvascular i schemic changes.No areas of brain edema or evidence of midline shift. The paranasal sinuses and mastoids are clear. The calvarium is intact. IMPRESSION: No acute intracranial abnormality.
[2024-01-10] MEDS ORDERED: NA CHLORIDE 0.9% 500 ML ONE (10:58)
--- NOTE | 2024-01-10 11:00 | RAD REPORT ---
EXAM DESCRIPTION: RAD - Chest Single View - 01/10/2024 10:45 am CLINICAL HISTORY: SOB Chest pain. COMPARISON: Abdomen 1 View (KUB) dated 01/07/2024; Chest Single View dated 12/20/2023; Chest Single Vi ew dated 11/16/2023; Chest Single View dated 10/24/2023 FINDINGS: Portable technique limits examination quality. Mild pulmonary edema suspected. The heart is moderately enlarged in size. No displaced fractures.Bila teral shoulder arthroplasty. IMPRESSION: Mild CHF.
[2024-01-10 11:37] LABS: Specific Gravity 1.015 (1.005-1.030); Sqamous Epithelial <5 /HPF (None Seen); Urine Bacteria None Seen /HPF (<20); Urine Bilirubin NEGATIVE (Negative); Urine Blood Negative (Negative); Urine Clarity Clear (Clear); Urine Color Light-Yellow (Yellow); Urine Culture Reflex Order NOT NEEDED; Urine Glucose NEGATIVE (Negative); Urine Ketones TRACE (Negative); Urine Microscopic Reflex YN ORDER UMIC; Urine Nitrite NEGATIVE (Negative); Urine Protein TRACE (Negative); Urine RBC <5 /HPF (None Seen); Urine Urobilinogen Normal (Normal); Urine WBC <5 /HPF (<5)
--- NOTE | 2024-01-10 12:12 | ER ---
Nurse's Notes [facility] Name: Marjan Kolb Age: 68 yrs Sex: Female : 1955 Arrival Date: 01/10/2024 Time: 09:58 Bed 17 Private MD: Diagnosis: Dehydration;Hallucinations, unspecified Presentation: 01/09 10:01 Chief complaint: EMS states: Called 911 for visual hallucinations and nausea, started ph today, BP high, pt states that she did not take morning meds because she felt confused. Coronavirus screen: Vaccine status: Patient reports receiving the 2nd dose of the covid vaccine. Ebola Screen: No symptoms or risks identified at this time. Initial Sepsis Screen: Does the patient meet any 2 criteria? No. Patient's initial sepsis screen is negative. Does the patient have a suspected source of infection? No. Patient's initial sepsis screen is negative. Risk Assessment: Do you want to hurt yourself or someone else? Patient reports no desire to harm self or others. Onset of symptoms was January 10, 2024. 10:01 Method Of Arrival: EMS: [facility] ph 10:04 Acuity: BLAYNE 2 ph Triage Assessment: 10:05 General: Appears in no apparent distress. Behavior is calm, cooperative. Pain: ph Complains of pain in back. Neuro: Level of Consciousness is awake, alert, obeys commands, Oriented to person, place, situation. Cardiovascular: Capillary refill < 3 seconds in bilateral fingers Patient's skin is warm and dry. Respiratory: Airway is patent Respiratory effort is even, unlabored. GI: Reports nausea. : Reports pain with urination. Derm: Skin is pink, warm \T\ dry. Musculoskeletal: Circulation, motion, and sensation intact. Range of motion: intact in all extremities. Historical: - Allergies: 10:04 Azithromycin; ph 10:04 Bactrim; ph 10:04 butorphanol; ph 10:04 Fentanyl; ph 10:04 Reglan; ph 10:04 Sulfa (Sulfonamide Antibiotics); ph - PMHx: 10:04 Hypercholesterolemia; Hypertensive disorder; ph - Immunization history:: Adult Immunizations unknown. - Infectious Disease History:: Denies. - Social history:: Smoking status: unknown. Screenin:36 [facility] ED Fall Risk Assessment (Adult) History of falling in the last 3 months, ph including since admission Yes- fall prone (multiple falls) (3 pts) Confusion or Disorientation No (0 pts) Intoxicated or Sedated No (0 pts) Impaired Gait No (0 pts) Mobility Assist Device Used No (0 pt) Altered Elimination No (0 pt) Score/Fall Risk Level 3 or more points = High Risk Oriented to surroundings, Maintained a safe environment, Used ambulatory aids as needed (educated on \T\ assisted with). Abuse screen: Denies threats or abuse. Denies injuries from another. Nutritional screening: No deficits noted. Tuberculosis screening: No symptoms or risk factors identified. Assessment: 10:30 General: Appears in no apparent distress. Behavior is calm, cooperative, Reports chills ph for. Pain: Complains of pain in abdomen. Neuro: Level of Consciousness is awake, alert, obeys commands, Oriented to person, place, time, situation. GI: Reports lower abdominal pain, nausea. : Reports pain with urination. 12:41 Reassessment: Patient appears in no apparent distress at this time. Patient and/or ph family updated on plan of care and expected duration. Pain level reassessed. Dr Baker at bedside to speak w/ pt. Vital Signs: 10:01 BP 186 / 99; Pulse 76; Resp 18; Temp 97.3; Pulse Ox 93% on R/A; Weight 69.85 kg; Height ph 5 ft. 4 in. ; 11:37 BP 184 / 86; Pulse 75; Resp 18; Pulse Ox 94% on R/A; ph 13:00 BP 178 / 98; Pulse 76; Resp 18; Pulse Ox 98% on R/A; ph 14:00 BP 198 / 99; Pulse 76; Resp 16; Pulse Ox 95% on R/A; ph 15:10 BP 186 / 92; Pulse 71; Resp 18; Temp 97.9; Pulse Ox 93% on R/A; ph 10:01 Body Mass Index 26.43 (69.85 kg, 162.56 cm) ph ED Course: 10:00 Patient arrived in ED. ph 10:02 Ramon Baker MD is Attending Physician. rn 10:04 Triage completed. ph 10:05 Arm band placed on Patient placed in an exam room, on a stretcher, on pulse oximetry. ph 10:21 CMP Sent. bc6 10:21 CBC with Diff Sent. bc6 10:21 Initial lab(s) drawn, by me, sent to lab. Maintain EMS IV. Dressing intact. Good blood bc6 return noted. Site clean \T\ dry. Flushed with 10 mL NS IV. 10:23 Solange Bennett, RN is Primary Nurse. ph 10:38 CT Head Brain wo Cont In Process Unspecified. EDMS 10:47 Chest Single View XRAY In Process Unspecified. EDMS 11:20 Urine collected: clean catch specimen, aditi colored. ph 11:37 Patient has correct armband on for positive identification. Bed in low position. Call ph light in reach. Side rails up X2. Pulse ox on. NIBP on. Door closed. Noise minimized. Warm blanket given. 13:30 CT Abd/Pelvis - Without Contrast In Process Unspecified. EDMS 15:23 No provider procedures requiring assistance completed. IV discontinued, intact, ph bleeding controlled, No redness/swelling at site. Pressure dressing applied. Administered Medications: 11:00 Drug: NS 0.9% IV 500 ml IV at bolus once Route: IV; Rate: bolus; Site: left wrist; ph 12:00 Follow up: Response: No adverse reaction; IV Status: Completed infusion; IV Intake: ph 500ml 13:06 Drug: morphine IVP or IV 4 mg IVP once over 4 mins Route: IVP; Infused Over: 4 mins; ph Site: left wrist; 13:30 Follow up: Response: No adverse reaction; Pain is decreased; RASS: Drowsy (-1) ph 15:18 Drug: Kenna PO 10 mg-325 mg 1 tabs PO once Route: PO; ph 15:22 Follow up: Response: No adverse reaction; Medication administered at discharge. ph 15:18 Drug: Ibuprofen PO 600 mg PO once Route: PO; ph 15:22 Follow up: Response: No adverse reaction; Medication administered at discharge. ph Medication: 11:37 VIS not applicable for this client. ph Intake: 12:00 IV: 500ml; Total: 500ml. ph Outcome: 12:11 Discharge ordered by . rn 14:39 Discharge ordered by . rn 15:24 Discharged to home via wheelchair, ph 15:24 Condition: good 15:24 Discharge instructions given to patient, Instructed on discharge instructions, follow up and referral plans. Demonstrated understanding of instructions, follow-up care, 15:24 Patient left the ED. ph Signatures: Dispatcher [employer] Ramon Linton MD MD rn Solange Bennett RN RN Helen Perez [facility] Corrections: (The following items were deleted from the chart) 10:04 10:01 Acuity: BLAYNE 3 ph ph 13:07 12:22 Ibuprofen PO 600 mg PO ph ph 13:07 12:23 Kenna PO 10 mg-325 mg 1 tabs PO ph ph
--- NOTE | 2024-01-10 12:12 | EDPHYS ---
Physician Documentation [facility] Name: Marjan Kolb Age: 68 yrs Sex: Female : 1955 Arrival Date: 01/10/2024 Time: 09:58 Bed 17 Private MD: ED Physician Ramon Baker HPI: 01/09 10:08 This 68 yrs old Female presents to ER via EMS with complaints of Nausea - rn Visual hallucinations. 10:21 68-year-old female with past medical history of HIV, hypertension, COPD presents to the emergency department via EMS complaining of visual hallucinations. Patient states that she began feeling generally unwell yesterday and while lying down at home this morning she was seeing birds flying on her ceiling that she knew were not actually there. She also endorsing subjective fever, nausea, lower abdominal and suprapubic pain, and burning with urination that began yesterday. Patient states that she has had visual hallucinations in the past however, this was believed to be due to a psychiatric medication at that time and that she has not had any hallucinations for the past year.. Historical: - Allergies: 10:04 Azithromycin; ph 10:04 Bactrim; ph 10:04 butorphanol; ph 10:04 Fentanyl; ph 10:04 Reglan; ph 10:04 Sulfa (Sulfonamide Antibiotics); ph - PMHx: 10:04 Hypercholesterolemia; Hypertensive disorder; ph - Immunization history:: Adult Immunizations unknown. - Infectious Disease History:: Denies. - Social history:: Smoking status: unknown. ROS: 10:35 Constitutional: Positive for chills, fever, malaise, rn 10:35 Cardiovascular: Negative for chest pain, edema, orthopnea, palpitations, 10:35 Respiratory: Positive for shortness of breath, at rest. 10:35 Respiratory: Negative for cough, hemoptysis, 10:35 Abdomen/GI: Positive for abdominal pain, nausea, abdominal cramps, anorexia, Negative for vomiting, diarrhea, 10:35 : Positive for urinary symptoms, pelvic pain, burning with urination, Negative for hematuria, flank pain, 10:35 MS/extremity: Negative for pain, paresthesias, swelling, 10:35 Neuro: Positive for headache, Negative for numbness, syncope, tingling, 10:35 Psych: Positive for visual hallucinations, Negative for auditory hallucinations, homicidal ideation, suicidal ideation, 10:35 All other systems are negative, Exam: 10:39 Constitutional: This is a well developed, well nourished patient who is awake, alert, rn and in no acute distress. 10:39 Cardiovascular: Exam negative for arrhythmia, edema, JVD, murmur, tachycardia, Heart sounds: normal, 10:39 Respiratory: the patient does not display signs of respiratory distress, Respirations: normal, Breath sounds: are clear throughout, 12:08 Neuro: Awake and alert, GCS 15, oriented to person, place, time, and situation. rn Cranial nerves II-XII grossly intact. Motor strength 5/5 in all extremities. Sensory grossly intact. Cerebellar exam normal. Normal gait. Vital Signs: 10:01 BP 186 / 99; Pulse 76; Resp 18; Temp 97.3; Pulse Ox 93% on R/A; Weight 69.85 kg; Height ph 5 ft. 4 in. ; 11:37 BP 184 / 86; Pulse 75; Resp 18; Pulse Ox 94% on R/A; ph 13:00 BP 178 / 98; Pulse 76; Resp 18; Pulse Ox 98% on R/A; ph 14:00 BP 198 / 99; Pulse 76; Resp 16; Pulse Ox 95% on R/A; ph 15:10 BP 186 / 92; Pulse 71; Resp 18; Temp 97.9; Pulse Ox 93% on R/A; ph 10:01 Body Mass Index 26.43 (69.85 kg, 162.56 cm) ph MDM: 10:02 Patient medically screened. rn 12:08 Differential diagnosis: Nonspecific abd pain, Urinary tract infection, adverse effect rn of medication, withdrawal, psychiatric problem. Data reviewed: vital signs, nurses notes, lab test result(s), radiologic studies, CT scan, and as a result, I will discharge patient. Counseling: I had a detailed discussion with the patient and/or guardian regarding the historical points, exam findings, and any diagnostic results supporting the discharge/admit diagnosis, lab results, radiology results, the need for outpatient follow up, to return to the emergency department if symptoms worsen or persist or if there are any questions or concerns that arise at home. Special discussion: I discussed with the patient/guardian in detail that at this point there is no indication for admission to the hospital. It is understood, however, that if the symptoms persist or worsen the patient needs to return immediately for re-evaluation. 01/09 10:20 Order name: Urinalysis w/ reflexes; Complete Time: 12:05 rn 01/09 10:20 Order name: CBC with Diff; Complete Time: 11:05 rn 01/09 10:20 Order name: CMP; Complete Time: 11:05 rn 01/09 10:20 Order name: Chest Single View XRAY; Complete Time: 11: rn 01/09 10:20 Order name: CT Head Brain wo Cont; Complete Time: 11: rn 01/09 12:43 Order name: CT Abd/Pelvis - Without Contrast; Complete Time: 14:37 rn Administered Medications: 11:00 Drug: NS 0.9% IV 500 ml IV at bolus once Route: IV; Rate: bolus; Site: left wrist; ph 12:00 Follow up: Response: No adverse reaction; IV Status: Completed infusion; IV Intake: ph 500ml 13:06 Drug: morphine IVP or IV 4 mg IVP once over 4 mins Route: IVP; Infused Over: 4 mins; ph Site: left wrist; 13:30 Follow up: Response: No adverse reaction; Pain is decreased; RASS: Drowsy (-1) ph 15:18 Drug: Strong PO 10 mg-325 mg 1 tabs PO once Route: PO; ph 15:22 Follow up: Response: No adverse reaction; Medication administered at discharge. ph 15:18 Drug: Ibuprofen PO 600 mg PO once Route: PO; ph 15:22 Follow up: Response: No adverse reaction; Medication administered at discharge. ph Disposition Summary: 01/10/24 14:39 Discharge Ordered Notes: Location: Home(01/10/24 14:39) rn Problem: new(01/10/24 14:39) rn Symptoms: have improved(01/10/24 14:39) rn Condition: Stable(01/10/24 14:39) rn Diagnosis - Dehydration(01/10/24 14:39) rn - Hallucinations, unspecified(01/10/24 14:39) rn Followup: rn - With: Private Physician - When: As needed - Reason: Recheck today's complaints, Re-evaluation by your physician Discharge Instructions: - Discharge Summary Sheet rn - Dehydration, Adult rn Forms: - Medication Reconciliation Form rn - Antibiotic clinical quality rn - Prescription Opioid Use rn - Patient Portal Instructions rn - Leadership Thank You Letter rn Signatures: Dispatcher [employer] [facility] Ramon Baker MD MD rn Hall, Patricia, RN RN ph Corrections: (The following items were deleted from the chart) 10:20 10:20 Head Brain Wo [email or web address].[email or web address] ordered. [facility] 10:35 10:21 68-year-old female with past medical history of HIV, hypertension, COPD presents rn to the emergency department via EMS complaining of visual hallucinations. Patient states that she was lying down at home this morning when she began to see birds flying on her ceiling that she knew were not actually there. She also endorses subjective fever, lower abdominal and suprapubic pain, and burning with urination that began yesterday. Patient states that she has had visual hallucinations in the past however, this was believed to be due to a psychiatric medication she was taking that has since been decreased and the patient has not had any hallucinations for the past year.. rn 10:42 10:21 68-year-old female with past medical history of HIV, hypertension, COPD presents rn to the emergency department via EMS complaining of visual hallucinations. Patient states that she began feeling generally unwell yesterday and while lying down at home this morning when she was seeing birds flying on her ceiling that she knew were not actually there. She also endorsing subjective fever, nausea, lower abdominal and suprapubic pain, and burning with urination that began yesterday. Patient states that she has had visual hallucinations in the past however, this was believed to be due to a psychiatric medication at that time and that she has not had any hallucinations for the past year.. rn 12: 10:39 Respiratory: the patient does not display signs of respiratory distress, rn Respirations: normal, Breath sounds: are clear throughout, rn :43 12:11 Home rn rn :43 12:11 new rn rn : 12:11 have improved rn rn : 12:11 Stable rn rn : 12:11 Dehydration rn rn : 12:11 Hallucinations, unspecified rn rn
[2024-01-10] MEDS ORDERED: IBUPROFEN 200 MG TAB PO ONE (12:18)
[2024-01-10] MEDS ORDERED: IBUPROFEN 400 MG TAB ONE (12:19)
[2024-01-10] MEDS ORDERED: HYDROCODONE/APAP 10/325 TAB ONE (12:19)
[2024-01-10] MEDS ORDERED: MORPHINE 4 MG/ML SYR ONE (12:59)
--- NOTE | 2024-01-10 14:35 | RAD REPORT ---
EXAM DESCRIPTION: CT - Abdomen Pelvis Wo Contrast - 01/10/2024 1:29 pm CLINICAL HISTORY: lower abd pain, nausea, constipation COMPARISON: Abdomen Pelvis Wo Contrast dated 01/08/2024; Abdomen Pelvis Wo Contrast dated 01/06/20; Stone Protocol dated 10/21/2023; Abdomen Pelvis Wo Contrast dated 10/14/2023 TECHNIQUE: Thin cut axial CT imaging of the abdomen and pelvis was performed without IV contrast. Mu ltiplanar reformats were generated and reviewed. All CT scans are performed using dose optimization technique as appropriate and may include automated exposure control or mA/KV adjustment according to patient size. FINDINGS: No suspicious findings in the lung bases. The liver, spleen, adrenal glands, and pancreas show no suspicious findings. Gallbladder was surgical ly removed. Symmetric renal contour, without suspicious parenchymal findings within limits of noncontrast techniq ue. Numerous exophytic bilateral cortical fluid density lesions largest at the left superior pole rashida suring 6.5 cm. No evidence of hydroureteronephrosis. Tiny calculi within the right renal pelvis large st measuring 2mm. No dilated bowel loops or bowel wall thickening. Nonspecific fluid filling of nondistended distal sma ll bowel with short-segment air-fluid levels. No free air, free fluid or inflammatory stranding. No h ernia, mass or bulky lymphadenopathy. The urinary bladder is without significant finding. No suspicious bony findings. IMPRESSION: Nonobstructing tiny right renal calculi not exceeding 3 mm. Nonspecific fluid filling of nondistended distal small bowel may relate to diarrheal state. Other incidental findings including multiple bilateral renal cortical cysts.
[2024-01-10 16:12] VITALS: BP 186/92; TEMP 97.9; O2SAT 93
== END 2024-01-10 15:24 | disposition home or self-care (01) ==
LOC: ER 09:58
DX: E86.0 Dehydration (principal); R44.1 Visual hallucinations; R10.9 Unspecified abdominal pain; Z21 Asymptomatic human immunodeficiency virus [HIV] infection status
CPT/HCPCS: 85025; 81001; 36415; 80053; 70450; 74176; 71045; J7040

== ENCOUNTER 2024-01-11 06:18 | Inpatient (IN) | payer OTHER ==
--- NOTE | 2024-01-11 07:26 | ER ---
Nurse's Notes [facility] Name: Marjan Kolb Age: 68 yrs Sex: Female : 1955 Arrival Date: 01/11/2024 Time: 06:18 Bed 4 Private MD: Diagnosis: Subsequent non-ST elevation (NSTEMI) myocardial infarction Presentation: 01/10 06:22 Chief complaint: Patient states: Chest pain all night 03/01. Coronavirus screen: At pc2 this time, the client does not indicate any symptoms associated with coronavirus-19. Ebola Screen: No symptoms or risks identified at this time. Initial Sepsis Screen: Does the patient meet any 2 criteria? HR > 90 bpm. No. Patient's initial sepsis screen is negative. Does the patient have a suspected source of infection? No. Patient's initial sepsis screen is negative. Risk Assessment: Do you want to hurt yourself or someone else? Patient reports no desire to harm self or others. Onset of symptoms was January 10, 2024. Care prior to arrival: Medication(s) given: ASA, 324mg. 06:22 Method Of Arrival: EMS: [facility] pc2 06:22 Acuity: BLAYNE 3 pc2 Triage Assessment: 06:25 General: Appears in no apparent distress. comfortable, unkempt, Behavior is calm, pc2 cooperative, appropriate for age. Pain: Complains of pain in chest Pain does not radiate. Pain currently is 10 out of 10 on a pain scale. Pain began gradually, 1 day ago. EENT: No signs and/or symptoms were reported regarding the EENT system. Neuro: Level of Consciousness is awake, alert, obeys commands, Oriented to person, place, time, situation. Cardiovascular: Reports chest pain, Patient's skin is warm and dry. Respiratory: Airway is patent Respiratory effort is even, unlabored, Respiratory pattern is regular, symmetrical. GI: Abdomen is non-distended. : No signs and/or symptoms were reported regarding the genitourinary system. Derm: Skin is intact. Musculoskeletal: Capillary refill < 3 seconds. Historical: - Allergies: 06:25 TRIMETHOPRIM; pc2 06:25 Sulfa (Sulfonamide Antibiotics); pc2 06:25 Reglan; pc2 06:25 Azithromycin; pc2 06:25 Bactrim; pc2 06:25 butorphanol; pc2 06:25 Fentanyl; pc2 - Home Meds: 06:25 aspirin 81 mg Oral tablet daily [Active]; pc2 - PMHx: 06:25 Hypercholesterolemia; Hypertensive disorder; pc2 - Immunization history:: Adult Immunizations unknown. - Infectious Disease History:: Denies. - Social history:: Smoking status: unknown. - Family history:: not pertinent. Screenin:27 [facility] ED Fall Risk Assessment (Adult) History of falling in the last 3 months, pc2 including since admission No falls in past 3 months (0 pts) Confusion or Disorientation No (0 pts) Intoxicated or Sedated No (0 pts) Impaired Gait No (0 pts) Mobility Assist Device Used No (0 pt) Altered Elimination No (0 pt) Score/Fall Risk Level 0 - 2 = Low Risk Oriented to surroundings, Maintained a safe environment, Hourly rounding (assess needs \T\ fall precautionary measures) done. Abuse screen: Denies threats or abuse. Denies injuries from another. Nutritional screening: No deficits noted. Tuberculosis screening: No symptoms or risk factors identified. Assessment: 06:27 Reassessment: see triage. pc2 07:30 Reassessment: Heparin drip pending results of blood work. mb9 08:00 General: Appears in no apparent distress. Behavior is calm, cooperative. Pain: mb9 Complains of pain in chest Pain does not radiate. Pain currently is 10 out of 10 on a pain scale. Quality of pain is described as throbbing, Pain began suddenly. Neuro: Gonzalez Agitation-Sedation Scale (RASS): 0 - Alert and Calm Level of Consciousness is awake, alert, obeys commands, Oriented to person, place, time, situation, Appropriate for age. Cardiovascular: Heart tones S1 S2 present Patient's skin is warm and dry. Respiratory: Airway is patent Respiratory effort is even, unlabored, Respiratory pattern is regular, symmetrical. GI: No signs and/or symptoms were reported involving the gastrointestinal system. : EENT: No signs and/or symptoms were reported regarding the EENT system. Derm: Skin is pink, warm \T\ dry. Musculoskeletal: Range of motion: intact in all extremities. 09:00 Reassessment: No changes from previously documented assessment. Patient and/or family mb9 updated on plan of care and expected duration. Pain level reassessed. Patient is alert, oriented x 3, equal unlabored respirations, skin warm/dry/pink. 10:20 Reassessment: No changes from previously documented assessment. Patient and/or family eduardo updated on plan of care and expected duration. Pain level reassessed. Patient is alert, oriented x 3, equal unlabored respirations, skin warm/dry/pink. 11:00 Reassessment: See [facility] for further charting. mb9 Vital Signs: 06:22 BP 144 / 86; Pulse 106; Resp 18; Temp 99.1; Pulse Ox 98% ; Weight 69.4 kg; Height 5 ft. pc2 4 in. ; Pain 10/10; 07:48 BP 117 / 88; Pulse 104; Resp 18; Pulse Ox 100% ; mb9 09:11 BP 122 / 84; Pulse 102; Resp 18; Pulse Ox 100% on R/A; mb9 10:21 BP 135 / 90; Pulse 102; Resp 18; Pulse Ox 100% on R/A; mb9 06:22 Body Mass Index 26.26 (69.40 kg, 162.56 cm) pc2 06:22 Pain Scale: Adult pc2 ED Course: 06:21 Patient arrived in ED. vc1 06:25 Triage completed. pc2 06:27 Arm band placed on right wrist. pc2 06:28 Justus Kolb MD is Attending Physician. thomas 06:28 Patient has correct armband on for positive identification. Bed in low position. Call pc2 light in reach. Side rails up X2. Provided Education on: POC and time frame. Client placed on continuous cardiac and pulse oximetry monitoring. NIBP monitoring applied. 06:28 No provider procedures requiring assistance completed. pc2 06:28 Patient maintains SpO2 saturation greater than 95% on room air. pc2 07:00 Initial lab(s) drawn, by me, sent to lab. EKG done, by ED staff, reviewed by Justus Kolb MD. Inserted saline lock: 20 gauge in left ,using aseptic technique. foot Blood collected. Flushed with 10 mL NS. 07:24 Brandon Shin is Hospitalizing Provider. thomas 07:26 Jessie Smith RN is Primary Nurse. mbFatoumata 07:34 XRAY Chest (1 view) In Process Unspecified. EDMS 08:00 Patient admitted, IV remains in place. eduardo 08:26 Attending Physician role handed off by Justus Kolb MD rt 08:26 Howard Samaniego MD is Attending Physician. rt 08:47 Brandon Shin is Hospitalizing Provider. rt Administered Medications: 07:26 Not Given (pt already received 324 mg of aspirin): aspirinchewable tablet 162 mg PO onceld1 07:49 Not Given (Hemodynamic Parameters): [id number] mg PO once mb9 07:50 Drug: Famotidine IVP 20 mg IVP once; dilute with 10 mL 0.9% NaCl; give over 2 minutes mb9 {Note: left [id number].} Route: IVP; Site: Other; 08:58 Follow up: Response: No adverse reaction mb9 07:51 Drug: Ondansetron IVP 4 mg IVP once; over 2 minutes Route: IVP; Site: Other; mb9 08:58 Follow up: Response: No adverse reaction mb9 07:55 Drug: morphine IVP or IV 4 mg IVP once over 4 mins Route: IVP; Infused Over: 4 mins; mb9 Site: Other; 08:57 Follow up: Response: No adverse reaction mb9 07:59 Drug: NS 0.9% IV 1000 ml IV at 125 ml/hr continuous Route: IV; Rate: 125 ml/hr; Site: 9 Other; 08:58 Follow up: Response: No adverse reaction; IV Status: Infusion continued upon admission mb9 08:45 Drug: Heparin (KS-Bolus No thrombolytic) - HEParin IVP 60 units/kg IVP once; Max 5000 mb9 units {Co-Signature: ld1 (Wanda Shah RN).} {Note: left foot.} Route: IVP; Site: Other; 13:04 Follow up: Response: No adverse reaction mb9 08:50 Drug: Heparin ([place] Drip) 12 units/kg/[place] - ([place] [address] units, D5W IV 500 ml) IV at mb9 calculated rate Per protocol; Max initial rate 1000 units/hr {Co-Signature: ld1 (Wanda Shah RN).} {Note: left foot.} Route: IV; Rate: calculated rate; Site: Other; 13:04 Follow up: Response: No adverse reaction; IV Status: Infusion continued upon admission mb9 08:57 Not Given (Hemodynamic Parameters): metoprolol5 mg IVP once; Hold for SBP <100 or HR mb9 <60. Medication: 06:28 VIS not applicable for this client. pc2 Outcome: 07:25 Decision to Hospitalize by Provider. thomas 08:47 Decision to Hospitalize by Provider. rt 09:05 Patient left the ED. eduardo 11:32 Admitted to [facility] accompanied by nurse, via stretcher, on monitor, Report called to eduardo Pedroza RN 11:32 Condition: stable 11:32 Instructed on the need for admit, 11:32 Patient left the ED. eduardo Signatures: Dispatcher [employer] EDJustus Perrin MD MD cha Calcote, Vanessa, RN RN vc1 Jessie Smith RN RN [id number] Howard Smaaniego MD MD rt Roberta Ernandez, RN RN pc2 Wanda Shah RN ld1 Wanda Shah RN ld1
--- NOTE | 2024-01-11 07:26 | EDPHYS ---
Physician Documentation [facility] Name: Marjan Kolb Age: 68 yrs Sex: Female : 1955 Arrival Date: 01/11/2024 Time: 06:18 Bed 4 Private MD: ED Physician Howard Samaniego HPI: 01/10 06:50 This 68 yrs old Female presents to ER via EMS with complaints of Chest Pain. thomas 06:50 The patient or guardian reports chest pain that is located primarily in the anterior thomas chest wall, bilaterally. Onset: yesterday. The pain does not radiate. Associated signs and symptoms: Pertinent positives: shortness of breath. The chest pain is described as a pressure. Modifying factors: The symptoms are alleviated by nothing. the symptoms are aggravated by nothing. Severity of pain: At its worst the pain was moderate in the emergency department the pain is unchanged. The patient has experienced similar episodes in the past, multiple times. Historical: - Allergies: 06:25 TRIMETHOPRIM; pc2 06:25 Sulfa (Sulfonamide Antibiotics); pc2 06:25 Reglan; pc2 06:25 Azithromycin; pc2 06:25 Bactrim; pc2 06:25 butorphanol; pc2 06:25 Fentanyl; pc2 - Home Meds: 06:25 aspirin 81 mg Oral tablet daily [Active]; pc2 - PMHx: 06:25 Hypercholesterolemia; Hypertensive disorder; pc2 - Immunization history:: Adult Immunizations unknown. - Infectious Disease History:: Denies. - Social history:: Smoking status: unknown. - Family history:: not pertinent. ROS: 06:50 Constitutional: Negative for fever, chills, and weight loss, Eyes: Negative for injury, thomas pain, redness, and discharge, ENT: Negative for injury, pain, and discharge, Neck: Negative for injury, pain, and swelling, Respiratory: Negative for shortness of breath, cough, wheezing, and pleuritic chest pain, Abdomen/GI: Negative for abdominal pain, nausea, vomiting, diarrhea, and constipation, Back: Negative for injury and pain, : Negative for injury, bleeding, discharge, and swelling, MS/Extremity: Negative for injury and deformity, Skin: Negative for injury, rash, and discoloration, Neuro: Negative for headache, weakness, numbness, tingling, and seizure, Psych: Negative for depression, anxiety, suicide ideation, homicidal ideation, and hallucinations, Allergy/Immunology: Negative for hives, rash, and allergies, Endocrine: Negative for neck swelling, polydipsia, polyuria, polyphagia, and marked weight changes, Hematologic/Lymphatic: Negative for swollen nodes, abnormal bleeding, and unusual bruising, 06:50 Cardiovascular: Positive for chest pain, 06:50 Respiratory: Positive for cough, 06:50 Abdomen/GI: Negative for abdominal pain, 06:50 MS/extremity: Negative for acute changes, Exam: 06:50 Constitutional: This is a well developed, well nourished patient who is awake, alert, thomas and in no acute distress. Head/Face: Normocephalic, atraumatic. Eyes: Pupils equal round and reactive to light, extra-ocular motions intact. Lids and lashes normal. Conjunctiva and sclera are non-icteric and not injected. Cornea within normal limits. Periorbital areas with no swelling, redness, or edema. ENT: Nares patent. No nasal discharge, no septal abnormalities noted. Tympanic membranes are normal and external auditory canals are clear. Oropharynx with no redness, swelling, or masses, exudates, or evidence of obstruction, uvula midline. Mucous membranes moist. Neck: Trachea midline, no thyromegaly or masses palpated, and no cervical lymphadenopathy. Supple, full range of motion without nuchal rigidity, or vertebral point tenderness. No Meningismus. Chest/axilla: Normal chest wall appearance and motion. Nontender with no deformity. No lesions are appreciated. Cardiovascular: Regular rate and rhythm with a normal S1 and S2. No gallops, murmurs, or rubs. Normal PMI, no JVD. No pulse deficits. Respiratory: Lungs have equal breath sounds bilaterally, clear to auscultation and percussion. No rales, rhonchi or wheezes noted. No increased work of breathing, no retractions or nasal flaring. Abdomen/GI: Soft, non-tender, with normal bowel sounds. No distension or tympany. No guarding or rebound. No evidence of tenderness throughout. Back: No spinal tenderness. No costovertebral tenderness. Full range of motion. Female : Normal external genitalia. Skin: Warm, dry with normal turgor. Normal color with no rashes, no lesions, and no evidence of cellulitis. MS/ Extremity: Pulses equal, no cyanosis. Neurovascular intact. Full, normal range of motion. Neuro: Awake and alert, GCS 15, oriented to person, place, time, and situation. Cranial nerves II-XII grossly intact. Motor strength 5/5 in all extremities. Sensory grossly intact. Cerebellar exam normal. Normal gait. Psych: Awake, alert, with orientation to person, place and time. Behavior, mood, and affect are within normal limits. 06:50 ECG was reviewed by the Attending Physician. 06:50 Musculoskeletal/extremity: DVT Exam: No signs of deep vein thrombosis. no pain, no swelling, no tenderness, negative Homans' sign noted on exam, no appreciated bluish discoloration, no erythema, no increased warmth, Vital Signs: 06:22 BP 144 / 86; Pulse 106; Resp 18; Temp 99.1; Pulse Ox 98% ; Weight 69.4 kg; Height 5 ft. pc2 4 in. ; Pain 10/10; 07:48 BP 117 / 88; Pulse 104; Resp 18; Pulse Ox 100% ; mb9 09:11 BP 122 / 84; Pulse 102; Resp 18; Pulse Ox 100% on R/A; mb9 10:21 BP 135 / 90; Pulse 102; Resp 18; Pulse Ox 100% on R/A; mb9 06:22 Body Mass Index 26.26 (69.40 kg, 162.56 cm) pc2 06:22 Pain Scale: Adult pc2 MDM: 06:28 Patient medically screened. thomas 06:58 Differential diagnosis: abnormal EKG, acute myocardial infarction, acute pericarditis, thomas chest wall pain, Cholelithiasis esophagitis, gastritis, pancreatitis, peptic ulcer disease, pleurisy, pneumonia, pneumothorax, pulmonary embolus, stable angina, thoracic aortic disection, unstable angina. HEART Score: History: Moderately Suspicious (1), ECG: Significant ST-deviation (2), Age: > or = 65 years (2), Risk Factors: > or = 3 Risk factors for atherosclerotic disease (2), [Hypercholesterolemia] [Hypertension] [+ Family HX] [Obesity]. The patient was given aspirin in the Emergency Department. MONI Risk Score: 1 - patient's age is greater or equal to 65 years, 1 - Three or more CAD risk factors, 1- Known CAD, TOTAL SCORE = 3. Data reviewed: vital signs, nurses notes, lab test result(s), EKG, radiologic studies, plain films. Consideration of Admission/Observation Escalation of care including admission/observation considered. I considered the following discharge prescriptions or medication management in the emergency department Medications were administered in the Emergency Department. See JUL. 08:47 Management of patient was discussed with the following: Business Development Coordinator: Discussed with rt cardiology on-call, will take patient to [facility]. Care significantly affected by the following chronic conditions: Hypertension. Counseling: I had a detailed discussion with the patient and/or guardian regarding the historical points, exam findings, and any diagnostic results supporting the discharge/admit diagnosis, lab results, radiology results, the need for further work-up and treatment in the hospital. 01/10 06:50 Order name: Basic Metabolic Panel; Complete Time: 08:31 thomas 01/10 06:50 Order name: CBC with Diff thomas 01/10 06:50 Order name: LFT's; Complete Time: 08:31 thomas 01/10 06:50 Order name: Magnesium; Complete Time: 08:31 thomas 01/10 06:50 Order name: NT PRO-BNP; Complete Time: 08:31 thomas 01/10 06:50 Order name: PT-INR; Complete Time: 08:31 thomas 01/10 06:50 Order name: Troponin HS; Complete Time: 08:31 thomas 01/10 06:50 Order name: Lipase; Complete Time: 08:31 thomas 01/10 07:56 Order name: PTT, Activated Partial Thromb; Complete Time: 08:31 EDMS 01/10 08:54 Order name: T4 Free EDMS 01/10 08:54 Order name: Thyroid Stimulating Hormone EDMS 01/10 08:54 Order name: Basic Metabolic Panel EDMS 01/10 08:54 Order name: Basic Metabolic Panel EDMS 01/10 08:54 Order name: Basic Metabolic Panel EDMS 01/10 08:54 Order name: Basic Metabolic Panel EDMS 01/10 08:54 Order name: CBC with Automated Diff EDMS 01/10 08:54 Order name: CBC with Automated Diff EDMS 01/10 08:54 Order name: CBC with Automated Diff EDMS 01/10 08:54 Order name: CBC with Automated Diff EDMS 01/10 08:54 Order name: Lipid Profile EDMS 01/10 08:54 Order name: Lipid Profile EDMS 01/10 08:54 Order name: Magnesium EDMS 01/10 08:54 Order name: Magnesium EDMS 01/10 08:54 Order name: Magnesium EDMS 01/10 08:54 Order name: Magnesium EDMS 01/10 08:54 Order name: Phosphorus EDMS 01/10 08:54 Order name: Phosphorus EDMS 01/10 08:54 Order name: Phosphorus EDMS 01/10 08:54 Order name: Phosphorus EDMS 01/10 09:47 Order name: CBC Smear Scan EDMS 01/10 06:50 Order name: XRAY Chest (1 view); Complete Time: 08:03 [facility] 01/10 06:50 Order name: EKG; Complete Time: 06:50 [facility] 01/10 06:50 Order name: Cardiac monitoring; Complete Time: 07:26 [facility] 01/10 06:50 Order name: EKG - Nurse/Tech; Complete Time: 07:10 [facility] 01/10 06:50 Order name: IV Saline Lock; Complete Time: 07:50 [facility] 01/10 06:50 Order name: Labs collected and sent; Complete Time: 07:50 [facility] 01/10 06:50 Order name: O2 Per Protocol; Complete Time: 07:15 [facility] 01/10 06:50 Order name: O2 Sat Monitoring; Complete Time: 07:15 [facility] EC:50 Rate is 105 beats/min. Rhythm is regular. QRS [place] is Normal. [place] interval is normal. [facility] QRS interval is normal. QT interval is normal. No Q waves. T waves are Normal. ST Segment is depressed in leads II, III, aVF, V3, V4, V5, V6. Clinical impression: 1st degree heart block. Interpreted by me. Reviewed by me. Administered Medications: 07:26 Not Given (pt already received 324 mg of aspirin): aspirinchewable tablet 162 mg PO onceld1 07:49 Not Given (Hemodynamic Parameters): mg PO once mb9 07:50 Drug: Famotidine IVP 20 mg IVP once; dilute with 10 mL 0.9% NaCl; give over 2 minutes mb9 {Note: left [id number].} Route: IVP; Site: Other; 08:58 Follow up: Response: No adverse reaction mb9 07:51 Drug: Ondansetron IVP 4 mg IVP once; over 2 minutes Route: IVP; Site: Other; mb9 08:58 Follow up: Response: No adverse reaction mb9 07:55 Drug: morphine IVP or IV 4 mg IVP once over 4 mins Route: IVP; Infused Over: 4 mins; mb9 Site: Other; 08:57 Follow up: Response: No adverse reaction mb9 07:59 Drug: NS 0.9% IV 1000 ml IV at 125 ml/hr continuous Route: IV; Rate: 125 ml/hr; Site: [facility] Other; 08:58 Follow up: Response: No adverse reaction; IV Status: Infusion continued upon admission mb9 08:45 Drug: Heparin ([place]-Bolus No thrombolytic) - HEParin IVP 60 units/kg IVP once; Max 5000 mb9 units {Co-Signature: ld1 (Wanda Shah RN).} {Note: left foot.} Route: IVP; Site: Other; 13:04 Follow up: Response: No adverse reaction mb9 08:50 Drug: Heparin ([place] Drip) 12 units/kg/[place] - ([place] [address] units, D5W IV 500 ml) IV at mb9 calculated rate Per protocol; Max initial rate 1000 units/hr {Co-Signature: ld1 (Wanda Shah RN).} {Note: left foot.} Route: IV; Rate: calculated rate; Site: Other; 13:04 Follow up: Response: No adverse reaction; IV Status: Infusion continued upon admission mb9 08:57 Not Given (Hemodynamic Parameters): metoprolol5 mg IVP once; Hold for SBP <100 or HR mb9 <60. Disposition: 08:47 Critical Care:. rt Disposition Summary: 01/11/24 08:47 Hospitalization Ordered Notes: Hospitalization Status: Inpatient Admission(01/11/24 08:47) rt Provider: Brandon Shin(01/11/24 08:47) rt Condition: Serious(01/11/24 08:47) rt Problem: new(01/11/24 08:47) rt Symptoms: are unchanged(01/11/24 08:47) rt Bed/Room Type: Standard(01/11/24 08:47) rt Location: [facility] ER HOLD(01/11/24 10:06) bd Room Assignment: ERHOLD-(01/11/24 10:06) bd Diagnosis - Subsequent non-ST elevation (NSTEMI) myocardial infarction rt Forms: - Medication Reconciliation Form rt - SBAR form rt - Leadership Thank You Letter rt Critical care time excluding procedures: 08:47 Critical care time: Bedside Care: 30 minutes, Consultation: 5 minutes. Total time: 35 rt minutes Signatures: Dispatcher [employer] EDMS Heydi Caldera Corey, MD MD cha Wilkerson, Jessie Edward RN RN mb9 Howard Samaniego MD MD rt Roberta Ernandez, RN RN pc2 Shah, Wanda RN ld1 Shah, Wanda RAMIREZ ld1 Corrections: (The following items were deleted from the chart) 07:35 07:25 Observation thomas thomas 07:35 07:25 ComfortBrandon vogel thomas thomas 07:35 07:25 Telemetry/MedSurg (observation) thomas thomas 07:35 07:25 Fair thomas thomas 07:35 07:25 new thomas thomas 07:35 07:25 have improved thomas thomas 07:35 07:25 Standard thomas thomas 07:35 07:25 thomas thomas 07:35 07:25 Chest pain, unspecified thomas thomas 07:35 07:25 Dyspnea thomas thomas 07:35 07:25 Abnormal electrocardiogram [ECG] [EKG] thomas thomas 07:56 07:18 PTT, ACTIVATED+COAG.LAB.BRZ ordered. EDMS EDMS 10:06 08:47 [facility] rt bd 10:06 08:47 rt bd
--- NOTE | 2024-01-11 07:50 | RAD REPORT ---
EXAM DESCRIPTION: RAD - Chest Single View - 01/11/2024 7:33 am CLINICAL HISTORY: CHEST PAIN COMPARISON: Chest Single View dated 01/10/2024; Abdomen 1 View (KUB) dated 01/07/2024; Chest Single Vi ew dated 12/20/2023; Chest Single View dated 11/16/2023 FINDINGS: Lines: None. Lungs: Mild prominence of the pulmonary interstitium. Pleural: No significant pleural effusions or pneumothorax. Cardiac: Cardiomegaly. Mediastinum: Within normal limits. Bones: No acute fractures. Bilateral shoulder arthroplasties. Other: None IMPRESSION: Mild pulmonary edema without significant change.
[2024-01-11] MEDS ORDERED: NA CHLORIDE 0.9% 1,000 ML ONE (07:52)
[2024-01-11] MEDS ORDERED: ONDANSETRON 4 MG/2 ML VIAL ONE (07:52)
[2024-01-11] MEDS ORDERED: FAMOTIDINE 20 MG/2 ML VIAL IV ONE (07:52)
[2024-01-11] MEDS ORDERED: MORPHINE 4 MG/ML SYR ONE (07:52)
[2024-01-11 07:58] LABS: Absolute Lymphocytes (CBC) 0.5 K/uL (0.7-4.9); Absolute Monocytes 1.1 K/uL (0.1-1.3); Absolute Neutrophil 9.1 K/uL (1.8-8.0); Basophils % 0.3 % (0-1.3); Hematocrit 34.9 % (36.0-45.0); Hemoglobin 11.4 g/dL (12.0-15.0); Lymphocytes % 4.6 % (15.3-44.8); MCH 27.6 pg (27.0-35.0); MCHC 32.8 g/dL (32.0-36.0); MCV 84.1 fL (80-100); MPV 7.2 fL (7.6-11.3); Neutrophils % 85.1 % (41.7-73.7); Nucleated Red Blood Cells % 0.1 % (0-0); Platelets 146 thou/uL (152-406); RBC Red Blood Cell Count 4.15 M/uL (3.86-4.86); Red Cell Distribution Width 15.5 % (12.1-15.2)
[2024-01-11 08:05] LABS: PTT, Activated Partial Thromb 21.2 SECONDS (24.3-36.9); Protime INR 1.17
[2024-01-11 08:18] LABS: Albumin 3.2 g/dL (3.4-5.0); Albumin/Globulin Ratio 0.9 (1.1-1.8); Anion Gap 9.2 mEq/L (5.0-15.0); Bilirubin Direct 0.2 mg/dL (0-0.2); Bilirubin Indirect, Calculated 0.3 mg/dL (0.2-0.8); Bilirubin Total 0.5 mg/dL (0.2-1.0); Globulin 3.7 g/dL (2.3-3.5); Potassium 3.2 mEq/L (3.5-5.1); Protein, Total 6.9 g/dL (6.4-8.2)
[2024-01-11 08:20] LABS: Troponin High Sensitivity 1030.1 pg/mL (<58.9)
[2024-01-11] MEDS ORDERED: HEPARIN 5000 UNIT/ML 1 ML VIAL ONE ×2 (08:52→11:00)
[2024-01-11] MEDS ORDERED: HEPARIN/D5W 25,000 UNIT/500 ML BAG IV ONE (08:52)
--- NOTE | 2024-01-11 09:24 | P.HP ---
Certification for Inpatient Patient admitted to: Inpatient With expected LOS: >2 Midnights Patient will require the following post-hospital care: None Practitioner: I am a practitioner with admitting privileges, knowledge of patient current condition, hospital course, and medical plan of care. Services: Services provided to patient in accordance with Admission requirements found in Title 42 Section 412.3 of the Code of Federal Regulations Patient History Date of Service: 01/11/24 Reason for admission: Chest pain r/o History of Present Illness: Marjan Kolb is a 68 year old female with Pmhx HIV, CAD, bipolar disorder, hypertension, COPD on home O2 at 2 L nasal cannula, tobacco abuse, former alcohol abuse, atrial fibrillation status post watchman, anemia of chronic disease, HLD, GERD with hiatal hernia, chronic diastolic CHF who presents to the ED with chief complaint of anterior bilateral chest pain associated with shortness of breath. While in the ED, troponin level resulted at 1030.1, Dr. Da Silva was consulted and decided for an immediate heart cath. Initial vitals BP 144 / 86; Pulse 106; Resp 18; Temp 99.1; Pulse Ox 98% laboratory evaluation potassium 3.2, BUN/creatinine 21/1.15, GFR 52, serum glucose 128, troponin 1030.1, BNP 7562 Chest x-ray reports "Mild pulmonary edema without significant change" Marjan will be admitted to hospitalist service for further evaluation and treatment, Dr. Da Silva consulted. Allergies fentanyl Allergy (Severe, Verified 07/20/22 08:30) Hives adhesive tape Allergy (Verified 07/20/22 08:30) Rash butorphanol tartrate [From Stadol] Allergy (Verified 07/20/22 08:30) confusion metoclopramide HCl [From Reglan] Allergy (Verified 07/20/22 08:30) Shortness of breath sulfamethoxazole [From Bactrim] Allergy (Verified 07/20/22 08:30) Hives/Rash trimethoprim [From Bactrim] Allergy (Verified 07/20/22 08:30) Hives/Rash Bactrim DS Allergy (Intermediate, Uncoded 07/20/22 08:30) Nausea/Vomiting Home Medications: Omeprazole 40 mg PO DAILY 08/10/23 Sertraline [Zoloft*] 100 mg PO DAILY 08/10/23 Trazodone [Desyrel*] 50 mg PO BEDTIME 08/10/23 Vericiguat [Verquvo] 20 mg PO DAILY 08/10/23 Albuterol Inhaler [Ventolin Inhaler*] 2 puff IH Q6H PRN 30 Days #1 inh 08/11/23 Amlodipine [Norvasc*] 10 mg PO DAILY 30 Days #30 tab 08/11/23 Buspirone HCl 30 mg PO BID 08/11/23 Hydralazine [Apresoline*] 50 mg PO TID PRN 30 Days #30 tab 08/11/23 Metoprolol Tartrate [Lopressor] 100 mg PO BID 30 Days #60 mg 08/11/23 Mometasone/Formoterol [Dulera 200 Mcg/5 Mcg Inhaler] 2 puff IH BID 30 Days #1 inhaler 08/11/23 Spironolactone [Aldactone*] 25 mg PO BID 30 Days #60 tab 08/11/23 Valsartan [Diovan*] 160 mg PO DAILY tab 08/11/23 Valsartan/Hydrochlorothiazide [Valsartan-Hctz 160-12.5 mg Tab] 1 each PO 30 MIN BEFORE HS #30 mg 08/11/23 Acidophilus/Bulgaricus [Lactinex Packet] 1 each PO DAILY 5 Days #5 packet 10/15/23 Ciprofloxacin HCl [Cipro 500 MG Tablet] 500 mg PO BID #20 tab 01/07/24 Simethicone 125 mg PO TID PRN #30 cap 01/07/24 - Past Medical/Surgical History Diabetic: No -: HIV- viral load currently undectable -: CAD -: Bipolar disorder -: Hypertension -: COPD on home O2 @ 2L -: Tobacco abuse -: former Alcohol abuse -: Anemia of chronic disease -: Hyperlipidemia -: GERD with hiatal hernia -: Atrial fibrillation-paroxysmal S/P Watchman procedure -: Chronic diastolic CHF -: Appendectomy Watchman procedure, -: Cholecystectomy -: left and right shoulder rotator cuff repair -: Right foot repair -: Right shoulder replacement -: right wrist -: hiatal hernia repair february 2021 -: right wrist Psychosocial/ Personal History: She lives at home. She is . Family coming to visit from [place] tomorrow - Family History Father -: Heart disease, Hypertension, Lung disease, GI disease, Stroke, Cancer, Liver disease, Kidney disease Notes: Colon cancer Mother -: Hypertension, Lung disease, GI disease, Blood disorders, Other (see notes) Notes: Epilepsy, chronic pain, leukemia - Social History Smoking Status: Current some day smoker Alcohol use: No CD- Drugs: No Caffeine use: No Review of Systems Cardiovascular: Chest Pain Physical Examination - Physical Exam General: Alert, In no apparent distress, Oriented x3 HEENT: Atraumatic, Normocephalic, PERRLA Neck: Supple, 2+ carotid pulse no bruit Respiratory: Clear to auscultation bilaterally, Normal air movement Cardiovascular: Normal pulses, Regular rate/rhythm, Normal S1 S2 Capillary refill: <2 Seconds Gastrointestinal: Normal bowel sounds, Soft and benign Musculoskeletal: No clubbing Integumentary: No rashes Neurological: Normal speech, Normal tone - Studies Laboratory Data (last 24 hrs) 01/11/24 01/11/24 01/11/24 07:47 07:47 07:47 WBC 10.70 Hgb 11.4 L Hct 34.9 L Plt Count 146 L PT 13.0 H INR 1.17 APTT 21.2 L Sodium 138 Potassium 3.2 L BUN 21 H Creatinine 1.15 H Glucose 128 H Magnesium 2.0 Total Bilirubin 0.5 AST 19 ALT 16 Alkaline Phosphatase 71 Lipase 25 01/11/24 07:17 WBC Hgb Hct Plt Count PT INR APTT Cancelled Sodium Potassium BUN Creatinine Glucose Magnesium Total Bilirubin AST ALT Alkaline Phosphatase Lipase Assessment and Plan - Plan Assessment and plan Chest Pain r/o ACS NSTEMI History of CAD Atrial fibrillation s/p watchman Chronic diastolic CHF - EKG: ST depression - troponin 1000, started heparin gtt - transthoracic echocardiogram results pending - chest x-ray - Consult Cardiology - Heart cath today - S/P aspirin 324 mg PO x 1 in ED - Start daily baby aspirin and statin - Symptom control with PRN acetaminophen, nitroglycerin, morphine - continuous telemetry - TSH/FreeT4, A1C, lipid panel pending Hypokalemia -K 3.2 -replete -monitor and replete PRN ROHAN -BUN/creatinine 21/1.15, GFR 52 -Monitor in AM labs Histoy of Hypercholesterolemia/HTN HIV Bipolar disorder HTN COPD on home O2 tobacco abuse former alcohol abuse Anemia of chronic disease HLD GERD with hiatal hernia -continue home medications DVT ppx heparin gtt Full code LOS 2 days Discharge Plan: Home Plan to discharge in: 48 Hours - Advance Directives Does patient have a Living Will: No Does patient have a Durable POA for Healthcare: No
[2024-01-11 09:36] LABS: Thyroid Stimulating Hormone 0.728 uIU/mL (0.358-3.740)
[2024-01-11 09:46] LABS: Anisocytosis SLIGHT; Blood Morphology Comment NOTED (NOT SEEN); Microcytosis SLIGHT; Platelet Estimate ADEQ; White Blood Cell Scan OK (OK)
[2024-01-11 10:49] VITALS: BMI 26.2
[2024-01-11] MEDS ORDERED: HEPA 1000U/500MLS 2,000 UNIT/1,000 ML BAG IV ONE (10:57)
[2024-01-11] MEDS ORDERED: ATROPINE SULF 1 MG/10 ML SYR IV ONE (10:57)
[2024-01-11] MEDS ORDERED: MIDAZOLAM HCL 2 MG/2 ML INJ ONE (10:57)
[2024-01-11] MEDS ORDERED: CLOPIDOGREL 75 MG TABLET ONE (10:58)
[2024-01-11] MEDS ORDERED: FENTANYL CITR 100 MCG/2 ML ONE (10:58)
[2024-01-11] MEDS ORDERED: HEPARIN 10,000 UNIT/10 ML VIAL IV ONE (10:58)
[2024-01-11] MEDS ORDERED: TICAGRELOR 90 MG TABLET PO ONE (10:58)
[2024-01-11] MEDS ORDERED: ASPIRIN 325 MG TAB ONE (10:59)
[2024-01-11] MEDS ORDERED: LIDOCAINE 1% 20 ML MDV ONE (11:01)
--- NOTE | 2024-01-11 11:03 | P.CNS ---
Date of Consult: 01/11/24 Chief Complaint: Chest pain r/o History of Present Illness: Patient with PMH of HTN, presented with chest pain that has been going on for the last 3 days, pressure in nature radiating to her neck, associated with SOB, nausea, denies palpitations, no syncope. Allergies fentanyl Allergy (Severe, Verified 07/20/22 08:30) Hives adhesive tape Allergy (Verified 07/20/22 08:30) Rash butorphanol tartrate [From Stadol] Allergy (Verified 07/20/22 08:30) confusion metoclopramide HCl [From Reglan] Allergy (Verified 07/20/22 08:30) Shortness of breath sulfamethoxazole [From Bactrim] Allergy (Verified 07/20/22 08:30) Hives/Rash trimethoprim [From Bactrim] Allergy (Verified 07/20/22 08:30) Hives/Rash Bactrim DS Allergy (Intermediate, Uncoded 07/20/22 08:30) Nausea/Vomiting Home medications list reviewed: Yes Home Medications: Omeprazole 40 mg PO DAILY 08/10/23 Sertraline [Zoloft*] 100 mg PO DAILY 08/10/23 Trazodone [Desyrel*] 50 mg PO BEDTIME 08/10/23 Vericiguat [Verquvo] 20 mg PO DAILY 08/10/23 Albuterol Inhaler [Ventolin Inhaler*] 2 puff IH Q6H PRN 30 Days #1 inh 08/11/23 Amlodipine [Norvasc*] 10 mg PO DAILY 30 Days #30 tab 08/11/23 Buspirone HCl 30 mg PO BID 08/11/23 Hydralazine [Apresoline*] 50 mg PO TID PRN 30 Days #30 tab 08/11/23 Metoprolol Tartrate [Lopressor] 100 mg PO BID 30 Days #60 mg 08/11/23 Mometasone/Formoterol [Dulera 200 Mcg/5 Mcg Inhaler] 2 puff IH BID 30 Days #1 inhaler 08/11/23 Spironolactone [Aldactone*] 25 mg PO BID 30 Days #60 tab 08/11/23 Valsartan [Diovan*] 160 mg PO DAILY tab 08/11/23 Valsartan/Hydrochlorothiazide [Valsartan-Hctz 160-12.5 mg Tab] 1 each PO 30 MIN BEFORE HS #30 mg 08/11/23 Acidophilus/Bulgaricus [Lactinex Packet] 1 each PO DAILY 5 Days #5 packet 10/15/23 Ciprofloxacin HCl [Cipro 500 MG Tablet] 500 mg PO BID #20 tab 01/07/24 Simethicone 125 mg PO TID PRN #30 cap 01/07/24 - Past Medical/Surgical History Diabetic: No -: HIV- viral load currently undectable -: CAD -: Bipolar disorder -: Hypertension -: COPD on home O2 @ 2L -: Tobacco abuse -: former Alcohol abuse -: Anemia of chronic disease -: Hyperlipidemia -: GERD with hiatal hernia -: Atrial fibrillation-paroxysmal S/P Watchman procedure -: Chronic diastolic CHF -: Appendectomy Watchman procedure, -: Cholecystectomy -: left and right shoulder rotator cuff repair -: Right foot repair -: Right shoulder replacement -: right wrist -: hiatal hernia repair february 2021 -: right wrist Psychosocial/ Personal History: She lives at home. She is . Family coming to visit from [place] tomorrow - Family History Father Medical History: Heart disease, Hypertension, Lung disease, GI disease, Stroke, Cancer, Liver disease, Kidney disease Notes: Colon cancer Mother Medical History: Hypertension, Lung disease, GI disease, Blood disorders, Other (see notes) Notes: Epilepsy, chronic pain, leukemia - Social History Smoking Status: Unknown if ever smoked Alcohol use: No CD- Drugs: No Caffeine use: No Review of Systems 10-point ROS is otherwise unremarkable Physical Examination Temp Pulse Resp BP Pulse Ox 99.1 F 106 H 18 144/86 H 01/11/24 09:20 01/11/24 09:20 01/11/24 09:20 01/11/24 09:20 General: Alert, In no apparent distress HEENT: Atraumatic, PERRLA, Mucous membr. moist/pink, EOMI, Sclerae nonicteric Neck: Supple, 2+ carotid pulse no bruit, No LAD, Without JVD or thyroid abnormality Respiratory: Clear to auscultation bilaterally, Normal air movement Cardiovascular: Regular rate/rhythm, Normal S1 S2 Gastrointestinal: Normal bowel sounds, No tenderness Musculoskeletal: No tenderness Integumentary: No rashes Neurological: Normal gait, Normal speech, Normal tone, Normal affect Lymphatics: No axilla or inguinal lymphadenopathy Laboratory Data (last 24 hrs) 01/11/24 01/11/24 01/11/24 07:47 07:47 07:47 WBC 10.70 Hgb 11.4 L Hct 34.9 L Plt Count 146 L PT 13.0 H INR 1.17 APTT 21.2 L Sodium 138 Potassium 3.2 L BUN 21 H Creatinine 1.15 H Glucose 128 H Magnesium 2.0 Total Bilirubin 0.5 AST 19 ALT 16 Alkaline Phosphatase 71 Lipase 25 01/11/24 07:17 WBC Hgb Hct Plt Count PT INR APTT Cancelled Sodium Potassium BUN Creatinine Glucose Magnesium Total Bilirubin AST ALT Alkaline Phosphatase Lipase - Problems (1) NSTEMI (non-ST elevated myocardial infarction) Current Visit: Yes Status: Acute Plan: troponin elevated, EKG with ST depression inferolateral leads, Heparin drip ASA 325 mg x1 then 81 mg daily Coronary angiogram to be done today. Lipitor 40 mg daily get echo (2) Acute on chronic diastolic heart failure Current Visit: No Status: Chronic Plan: Lasix 40 mg IV BID Monitor input and output and electrolytes. get echo (3) Hypertension Current Visit: No Status: Chronic Plan: continue patient home medications Qualifiers: Hypertension type: primary hypertension Qualified Code(s): I10 - Essential (primary) hypertension
[2024-01-11] MEDS: ONDANSETRON 4 MG/2 ML VIAL ONE (14:30)
[2024-01-11] MEDS: MORPHINE 4 MG/ML SYR ONE (14:30)
[2024-01-11] MEDS: HYDRALAZINE HCL 20 MG/ML VIAL ONE (14:30)
[2024-01-11] MEDS: HYDRALAZINE HCL 20 MG/ML VIAL IV PRN (18:15)
[2024-01-11] MEDS ORDERED: ATORVASTATIN 40 MG TAB PO SCH (21:00)
[2024-01-11] MEDS ORDERED: TICAGRELOR 90 MG TABLET PO SCH (21:00)
[2024-01-11] MEDS: ATORVASTATIN 40 MG TAB PO SCH (21:08)
[2024-01-11] MEDS: TICAGRELOR 90 MG TABLET PO SCH (21:09)
[2024-01-11] MEDS: MORPHINE 2 MG/ML SYR IV PRN (21:45)
--- NOTE | 2024-01-12 02:12 | OP ---
Date of Procedure: 01/11/2024 Surgeon: Tommy Da Silva Procedures Performed: 1.Selective coronary angiogram. 2.Left heart catheterization. 3.PCI of the RCA with Synergy 4.0 x 20 mm drug-eluting stent. Indication For Procedure: [id number] HI. Complications: None. Estimated Blood Loss: Less than 50 cc. Sedation Time: 30 minutes with 2 of Versed. Access: Right radial, closed by TR band. Description Of Procedure: After risks, benefits, and alternatives were explained to the patient, the patient agreed to proceed with procedure and signed informed consent. The patient was brought back to the analyst microbiology lab and prepped and draped in a sterile fashion. Time-out was performed. Sedation was a dministered. Next, an ultrasound-guided right radial access was obtained. [place] 4 catheter was adva nced to the LV cavity. LVEDP was obtained. Pullback did not show any gradient. Same catheter was u sed for selective angiogram of the left and right coronary systems. Later on, that catheter was exch anged for an AL1 guide to the RCA. Heparin was administered. ACT was therapeutic. Runthrough wire was passed across the RCA lesions, predilated the lesion with an NC 3.0 mm balloon. Next, Synergy 4. 0 x 20 mm drug-eluting stent was placed across the lesion. This was postdilated with an NC 4.5 mm ba lloon. Final angiogram shows MONI-3 flow. Catheter was removed over a J-wire and sheath was removed and TR band was applied. The patient was moved to recovery in stable condition. Findings: 1.Left main, ostial 20% to 30%, then normal. 2.LAD, diffuse mild luminal irregularities with mid 30% disease. 3.Left circ, mild luminal irregularities. 4.RCA, proximal 20% disease and mid 70% disease, most likely the culprit for the non-STEMI. PCI don e with Synergy 4.0 x 20 mm drug-eluting stent, distal mild luminal irregularities, RPDA/RPLV mild lum inal irregularities. 5.LVEDP is 30 mmHg. Assessment: Non-STEMI, most likely secondary to significant mid RCA disease, PCI done with Synergy 4 .0 x 20 mm drug-eluting stent. Plan: 1.Aspirin 81 mg daily for life. 2.Brilinta 180 x1 was given in the analyst microbiology lab, continue Brilinta 90 mg p.o. b.i.d. for 12 months. 3.Continue aggressive medical treatment for CAD. VERONICA/KIRTI Voice ID: [id number] Report ID: [id number]
[2024-01-12] MEDS: clonazePAM 0.5 MG TAB PO ONE (05:09)
[2024-01-12 06:51] LABS: Absolute Lymphocytes (CBC) 0.5 K/uL (0.7-4.9); Absolute Monocytes 0.8 K/uL (0.1-1.3); Absolute Neutrophil 6.8 K/uL (1.8-8.0); Basophils % 0.3 % (0-1.3); Eosinophils % 0.6 % (0-4.4); Hematocrit 33.6 % (36.0-45.0); Hemoglobin 10.8 g/dL (12.0-15.0); Lymphocytes % 6.2 % (15.3-44.8); MCH 27.6 pg (27.0-35.0); MCHC 32.2 g/dL (32.0-36.0); MCV 85.9 fL (80-100); MPV 7.5 fL (7.6-11.3); Monocytes % 10.1 % (3.3-12.3); Neutrophils % 82.8 % (41.7-73.7); Nucleated Red Blood Cells % 0.1 % (0-0); Platelets 117 thou/uL (152-406); RBC Red Blood Cell Count 3.91 M/uL (3.86-4.86); Red Cell Distribution Width 15.9 % (12.1-15.2)
[2024-01-12 06:54] LABS: Anion Gap 13.1 mEq/L (5.0-15.0); Phosphorus 2.2 mg/dL (2.5-4.9); Potassium 3.1 mEq/L (3.5-5.1)
[2024-01-12] MEDS: ASPIRIN 81 MG CHEWABLE TABLET PO SCH (08:20)
[2024-01-12] MEDS: POTASSIUM 25 MEQ EFFERV TAB PO ONE (08:20)
[2024-01-12] MEDS: POTASS/SODIUM PHOSPHATE 1 PKT POWD.PACK PO SCH (08:20)
[2024-01-12] MEDS ORDERED: ASPIRIN EC 81 MG TAB PO SCH (09:00)
[2024-01-12 09:09] VITALS: TEMP 97.1
[2024-01-12 10:32] VITALS: BP 112/55
[2024-01-12 10:36] VITALS: O2SAT 95
--- NOTE | 2024-01-12 10:36 | P.DS ---
Admission Date: 01/11/24 Discharge Date: 01/12/24 Disposition: ROUTINE DISCHARGE Discharge Condition: GOOD Reason for Admission: Chest pain r/o Brief History of Present Illness: Diagnosis Chest Pain r/o ACS NSTEMI S/P PCI stent to RCA History of CAD Atrial fibrillation s/p watchman Chronic diastolic CHF Hypokalemia ROHAN Histoy of Hypercholesterolemia/HTN HIV Bipolar disorder HTN COPD on home O2 tobacco abuse former alcohol abuse Anemia of chronic disease HLD GERD with hiatal hernia HPI 01/11/2024 Marjan Kolb is a 68 year old female with Pmhx HIV, CAD, bipolar disorder, hypertension, COPD on home O2 at 2 L nasal cannula, tobacco abuse, former alcohol abuse, atrial fibrillation status post watchman, anemia of chronic disease, HLD, GERD with hiatal hernia, chronic diastolic CHF who presents to the ED with chief complaint of anterior bilateral chest pain associated with shortness of breath. While in the ED, troponin level resulted at 1030.1, Dr. Da Silva was consulted and decided for an immediate heart cath. Initial vitals BP 144 / 86; Pulse 106; Resp 18; Temp 99.1; Pulse Ox 98% laboratory evaluation potassium 3.2, BUN/creatinine 21/1.15, GFR 52, serum glucose 128, troponin 1030.1, BNP 7562 Chest x-ray reports "Mild pulmonary edema without significant change" Marjan will be admitted to hospitalist service for further evaluation and treatment, Dr. Da Silva consulted. Hospital Course: Marjan Kolb is a pleasant 68 year old female with a past medical history significant for HIV, CAD, bipolar disorder, hypertension, COPD on home O2 at 2 L nasal cannula, tobacco abuse, former alcohol abuse, atrial fibrillation status post watchman, anemia of chronic disease, HLD, GERD with hiatal hernia, chronic diastolic CHF who was admitted to the [facility] on 01/10/22 for Chest pain r/o ACS. Marjan presented to the ED with chief complaint Chest pain associated with shortness of breath. Her troponin was found to be 1030.[address] Da Silva was consulted. He decided to perform a heart cath immediately placing a stent to the RCA. She was monitored overnight and found to be hemodynamically stable and on home oxygen of 2 LNC. She reports chest pain better but with some discomfort s/p PCI and stent placement, EKG performed with no ST elevation or depressions, NSR. She is tolerating PO diet, ambulating independently, and hemodynamically stable for discharge. On 01/12/24, Marjan was seen on morning rounds and deemed medically stable for discharge. Marjan was discharged with instructions to schedule follow-up appointments with PCP and Dr. Da Silva. Marjan was provided prescriptions for aspirin, Brilinta, Lipitor. Physical Exam General: Alert and Oriented x3, Calm and cooperative HEENT: Atraumatic, Normocephalic, PERRLA Neck: Supple, 2+ carotid pulse no bruit Respiratory: Clear to auscultation bilaterally, Normal air movement, on 2 LNC Cardiovascular: Normal pulses, NSR, Normal S1 S2 Capillary refill: <2 Seconds Gastrointestinal: Normal active bowel sounds, Soft and benign on palpation Musculoskeletal: No clubbing Integumentary: No rashes Neurological: Normal speech, Normal tone Vital Signs/Physical Exam: Temp Pulse Resp BP Pulse Ox 97.1 F 104 H 12 112/55 L 95 01/12/24 08:00 01/12/24 10:31 01/12/24 08:55 01/12/24 10:31 01/12/24 08:55 Laboratory Data at Discharge: WBC 8.20 thou/uL (4.3-10.9) 01/12/24 06:24 Hgb 10.8 g/dL (12.0-15.0) L 01/12/24 06:24 Hct 33.6 % (36.0-45.0) L 01/12/24 06:24 Plt Count 117 thou/uL (152-406) L 01/12/24 06:24 PT 13.0 SECONDS (9.4-12.5) H 01/11/24 07:47 INR 1.17 01/11/24 07:47 APTT 21.2 SECONDS (24.3-36.9) L 01/11/24 07:47 Sodium 136 mEq/L (136-145) 01/12/24 06:24 Potassium 3.1 mEq/L (3.5-5.1) L 01/12/24 06:24 BUN 14 mg/dL (7-18) 01/12/24 06:24 Creatinine 0.87 mg/dL (0.55-1.02) 01/12/24 06:24 Glucose 124 mg/dL (74-106) H 01/12/24 06:24 Phosphorus 2.2 mg/dL (2.5-4.9) L 01/12/24 06:24 Magnesium 2.0 mg/dL (1.6-2.4) 01/12/24 06:24 Total Bilirubin 0.5 mg/dL (0.2-1.0) 01/11/24 07:47 AST 19 U/L (15-37) 01/11/24 07:47 ALT 16 U/L (13-56) 01/11/24 07:47 Alkaline Phosphatase 71 U/L (45-117) 01/11/24 07:47 Triglycerides 84 mg/dL (<150) 01/12/24 06:24 Cholesterol 164 mg/dL (<200) 01/12/24 06:24 HDL Cholesterol 53 mg/dL (40-60) 01/12/24 06:24 Cholesterol/HDL Ratio 3.09 01/12/24 06:24 Lipase 25 U/L (13-75) 01/11/24 07:47 Home Medications: Omeprazole 40 mg PO DAILY 08/10/23 Sertraline [Zoloft*] 100 mg PO DAILY 08/10/23 Trazodone [Desyrel*] 50 mg PO BEDTIME 08/10/23 Vericiguat [Verquvo] 20 mg PO DAILY 08/10/23 Albuterol Inhaler [Ventolin Inhaler*] 2 puff IH Q6H PRN 30 Days #1 inh 08/11/23 Amlodipine [Norvasc*] 10 mg PO DAILY 30 Days #30 tab 08/11/23 Buspirone HCl 30 mg PO BID 08/11/23 Hydralazine [Apresoline*] 50 mg PO TID PRN 30 Days #30 tab 08/11/23 Metoprolol Tartrate [Lopressor] 100 mg PO BID 30 Days #60 mg 08/11/23 Mometasone/Formoterol [Dulera 200 Mcg/5 Mcg Inhaler] 2 puff IH BID 30 Days #1 inhaler 08/11/23 Spironolactone [Aldactone*] 25 mg PO BID 30 Days #60 tab 08/11/23 Valsartan [Diovan*] 160 mg PO DAILY tab 08/11/23 Acidophilus/Bulgaricus [Lactinex Packet] 1 each PO DAILY 5 Days #5 packet 10/15/23 Ciprofloxacin HCl [Cipro 500 MG Tablet] 500 mg PO BID #20 tab 01/07/24 Simethicone 125 mg PO TID PRN #30 cap 01/07/24 Aspirin Chewable [Aspirin Chewable*] 81 mg PO DAILY #30 tab.chew 01/12/24 Atorvastatin Calcium [Lipitor] 40 mg PO BEDTIME #30 tab 01/12/24 Ticagrelor [Brilinta*] 90 mg PO BID #60 tab 01/12/24 New Medications: Aspirin Chewable [Aspirin Chewable*] 81 mg PO DAILY #30 tab.chew Ticagrelor [Brilinta*] 90 mg PO BID #60 tab Atorvastatin Calcium [Lipitor] 40 mg PO BEDTIME #30 tab Physician Discharge Instructions: 1. Please call and schedule a follow-up appointment with your PCP in 3-5 days - Please follow-up with your PCP for medication refills/adjustments 2. Please call and schedule a follow-up appointment with Dr. Da Silva in one week 3. Continue heart healthy diet 4. activity restrictions, do not lift anything greater than 10 pounds for three days 5. Return to the ED if symptoms worsen New medications Brilinta 90 mg p.o. twice daily Aspirin 81 mg p.o. daily Lipitor 40 mg p.o. daily Diet: AHA Activity: No lifting more than 10 lbs Followup: Lele Rahman DO, DO [Primary Care Provider] - Tommy Da Silva MD [ACTIVE - CAN ADMIT] - 1-2 Weeks
--- NOTE | 2024-01-12 13:31 | ECHO ---
HEIGHT: 5 ft 4 in WEIGHT: 153 lb 0 oz DATE OF STUDY: 01/12/[address]: Radha Concepcion NP 2-DIMENSIONAL: YES M.MODE: YES DOPPLER: YES COLOR FLOW: YES TDS: PORTABLE: YES DEFINITY: BUBBLE STUDY: DIAGNOSIS: CHEST PAIN/ NON ST ELEVATION MYOCARDIAL INFARCTION CARDIAC HISTORY: CATHERIZATION: SURGERY: PROSTHETIC VALVE: PACEMAKER: MEASUREMENTS (cm) DIASTOLIC (NORMALS) SYSTOLIC (NORMALS) IVSd 1.2 (0.6-1.2) LA Diam 4.6 (1.9-4.0) LVEF 60-65% LVIDd 4.0 (3.5-5.7) LVIDs 3.0 (2.0-3.5) %FS 25% LVPWd 1.3 (0.6-1.2) Ao Diam 3.2 (2.0-3.7) 2 DIMENSIONAL ASSESSMENT: RIGHT ATRIUM: NORMAL LEFT ATRIUM: NORMAL RIGHT VENTRICLE: NORMAL LEFT VENTRICLE: NORMAL TRICUSPID VALVE: TRACE TRICUSPID REGURGITATION MITRAL VALVE: TRACE MITRAL REGURGITATION PULMONIC VALVE: NORMAL AORTIC VALVE: TRACE AORTIC REGURGITATION PERICARDIAL EFFUSION: NONE AORTIC ROOT: NORMAL LEFT VENTRICULAR WALL MOTION: NORMAL DOPPLER/COLOR FLOW: NORMAL COMMENTS: 1. NORMAL LEFT VENTRICULAR SYSTOLIC FUNCTION, EJECTION FRACTION 60-65%, NORMAL WALL MOTION 2. NORMAL DIASTOLIC FUNCTION 3. NORMAL FILLING PRESSURE TECHNOLOGIST: SANKET GEORGE
--- NOTE | 2024-01-13 13:31 | EKG ---
Test Date: 2024-01-12 Test Time: 09:42:08 Employee Representative: BENTLEY MEASUREMENT RESULTS: Intervals: Rate: 100 NM: 310 QRSD: 92 QT: 460 QTc: 593 [place]: P: 44 NM: 310 QRS: -7 T: 42 INTERPRETIVE STATEMENTS: Sinus rhythm with 1st degree AV block with occasional premature ventricular complexes Voltage criteria for left ventricular hypertrophy ST & T wave abnormality, consider anterolateral ischemia Prolonged QT Abnormal ECG Compared to ECG 01/12/2024 09:39:39 Ventricular premature complex(es) now present ST (T wave) deviation now present Possible ischemia now present Prolonged QT interval now present Sinus arrhythmia no longer present Early repolarization no longer present Electronically Signed On 01-13-24 13:28:17 CDT by Tommy Da Silva
--- NOTE | 2024-01-13 13:31 | EKG ---
Test Date: 2024-01-12 Test Time: 09:42:55 Eap Specialist: BENTLEY MEASUREMENT RESULTS: Intervals: Rate: 100 MI: 318 QRSD: 90 QT: 374 QTc: 482 [place]: P: 18 MI: 318 QRS: -7 T: 207 INTERPRETIVE STATEMENTS: Sinus rhythm with 1st degree AV block Left ventricular hypertrophy with repolarization abnormality Abnormal ECG Compared to ECG 01/12/2024 09:42:08 Early repolarization now present Ventricular premature complex(es) no longer present ST (T wave) deviation no longer present Possible ischemia no longer present Prolonged QT interval no longer present Electronically Signed On 01-13-24 13:28:14 CDT by Tommy Da Silva
--- NOTE | 2024-01-13 13:33 | EKG ---
Test Date: 2024-01-11 Test Time: 21:29:13 Mis Manager: HB MEASUREMENT RESULTS: Intervals: Rate: 106 DE: 148 QRSD: 96 QT: 346 QTc: 459 [place]: P: -2 DE: 148 QRS: 22 T: 240 INTERPRETIVE STATEMENTS: Sinus tachycardia Left ventricular hypertrophy with repolarization abnormality Abnormal ECG Compared to ECG 01/11/2024 06:51:06 Left ventricular hypertrophy now present Early repolarization now present First degree AV block no longer present Myocardial infarct finding no longer present ST (T wave) deviation no longer present Electronically Signed On 01-13-24 13:28:48 CDT by Tommy Da Silva
--- NOTE | 2024-01-13 13:36 | EKG ---
Test Date: 2024-01-11 Test Time: 06:51:06 Leaf Sorter: LUZ MARIA MEASUREMENT RESULTS: Intervals: Rate: 105 MI: 272 QRSD: 88 QT: 360 QTc: 475 [place]: P: 66 MI: 272 QRS: 43 T: 250 INTERPRETIVE STATEMENTS: Sinus tachycardia with 1st degree AV block Septal infarct, age undetermined Marked ST abnormality, possible inferior subendocardial injury Abnormal ECG Compared to ECG 12/20/2023 18:09:18 First degree AV block now present Myocardial infarct finding now present ST (T wave) deviation now present Sinus rhythm no longer present Left ventricular hypertrophy no longer present Early repolarization no longer present Prolonged QT interval no longer present Electronically Signed On 01-13-24 13:30:26 CDT by Tommy Da Silva
== END 2024-01-12 12:31 | disposition home or self-care (01) | DRG 321 ==
LOC: ER 06:18 → ERHOLD 08:51 → 4TH 17:28
PROVIDERS: ADMIT Internal Medicine; ATTEND Internal Medicine
PROC: 027034Z Dilation of Coronary Artery, One Artery with Drug-eluting Intraluminal Device, Percutaneous Approach (ICD-10-PCS; principal; 2024-01-11)
PROC: 4A023N7 Measurement of Cardiac Sampling and Pressure, Left Heart, Percutaneous Approach (ICD-10-PCS; 2024-01-11)
PROC: B2111ZZ Fluoroscopy of Multiple Coronary Arteries using Low Osmolar Contrast (ICD-10-PCS; 2024-01-11)
DX: I11.0 Hypertensive heart disease with heart failure (principal); I21.4 Non-ST elevation (NSTEMI) myocardial infarction; I50.33 Acute on chronic diastolic (congestive) heart failure; E78.00 Pure hypercholesterolemia, unspecified; F31.9 Bipolar disorder, unspecified; I48.91 Unspecified atrial fibrillation; E87.6 Hypokalemia; K44.9 Diaphragmatic hernia without obstruction or gangrene; D63.8 Anemia in other chronic diseases classified elsewhere; K21.9 Gastro-esophageal reflux disease without esophagitis; J44.9 Chronic obstructive pulmonary disease, unspecified; I25.10 Atherosclerotic heart disease of native coronary artery without angina pectoris; F17.200 Nicotine dependence, unspecified, uncomplicated; Z21 Asymptomatic human immunodeficiency virus [HIV] infection status; Z88.5 Allergy status to narcotic agent; Z88.2 Allergy status to sulfonamides; Z88.1 Allergy status to other antibiotic agents; Z88.8 Allergy status to other drugs, medicaments and biological substances; Z79.82 Long term (current) use of aspirin; Z99.81 Dependence on supplemental oxygen; Z90.49 Acquired absence of other specified parts of digestive tract; Z91.048 Other nonmedicinal substance allergy status; Z96.611 Presence of right artificial shoulder joint
CPT/HCPCS: 36415; 71045; 76937; 80048; 80061; 80076; 83036; 83690; 83735; 83880; 84100; 84439; 84443; 84484; 85025; 85610; 85730; 93005; 93306; 93458; 96361; 96365; 96366; 96375; 99152; 99153; 99285; C1725; C1893; C9600; J0360; J0461; J1644; J2001; J2250; J2270; J2405; J3010; J7030; Q9967

== ENCOUNTER 2024-01-12 19:14 | Emergency (ER) | payer OTHER ==
[2024-01-12 19:59] LABS: Absolute Eosinophils 0.1 K/uL (0-0.5); Absolute Lymphocytes (CBC) 0.3 K/uL (0.7-4.9); Absolute Monocytes 0.5 K/uL (0.1-1.3); Absolute Neutrophil 3.9 K/uL (1.8-8.0); Basophils % 0.1 % (0-1.3); Hematocrit 33.6 % (36.0-45.0); Hemoglobin 10.7 g/dL (12.0-15.0); Lymphocytes % 6.8 % (15.3-44.8); MCHC 31.8 g/dL (32.0-36.0); MPV 7.1 fL (7.6-11.3); Neutrophils % 81.1 % (41.7-73.7); Platelets 133 thou/uL (152-406); RBC Red Blood Cell Count 3.96 M/uL (3.86-4.86); Red Cell Distribution Width 15.8 % (12.1-15.2)
[2024-01-12 20:20] LABS: AST/SGOT 20 U/L (15-37); Albumin 3.2 g/dL (3.4-5.0); Albumin/Globulin Ratio 0.8 (1.1-1.8); Alkaline Phosphatase 66 U/L (45-117); BUN Blood Urea Nitrogen 18 mg/dL (7-18); Bicarbonate 27 mEq/L (21-32); Bilirubin Direct 0.3 mg/dL (0-0.2); Bilirubin Indirect, Calculated 0.3 mg/dL (0.2-0.8); Bilirubin Total 0.6 mg/dL (0.2-1.0); Globulin 3.9 g/dL (2.3-3.5); Glomerular Filtration Rate 63 ml/min (=/>90); Glucose Level 113 mg/dL (74-106); Magnesium 2.1 mg/dL (1.6-2.4); NT PRO-BNP 3050 pg/mL (<125); Protein, Total 7.1 g/dL (6.4-8.2); Sodium Level 142 mEq/L (136-145)
[2024-01-12 20:25] LABS: ALT/SGPT < 14 U/L (13-56)
[2024-01-12 20:26] LABS: Troponin High Sensitivity 225.5 pg/mL (<58.9)
[2024-01-12] MEDS ORDERED: LABETALOL 20 MG/4ML SYRINGE IV ONE (20:29)
--- NOTE | 2024-01-12 20:58 | RAD REPORT ---
EXAM DESCRIPTION: [facility] Single View01/12/2024 8:03 pm CLINICAL HISTORY: CHEST PAIN COMPARISON: Chest Single View dated 01/11/2024; Chest Single View dated 01/10/2024; Abdomen 1 View ([facility]) dated 01/07/2024; Chest Single View dated 12/20/2023 TECHNIQUE: Portable AP view of the chest. FINDINGS: The lungs are clear. No pneumothorax or effusion. Cardiac silhouette is again enlarged wi th prominence of the pulmonary vascular markings. The mediastinal contours are otherwise unremarkable . 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 IMPRESSION: No acute pulmonary process. Stable cardiomegaly.
[2024-01-12] MEDS ORDERED: MORPHINE 4 MG/ML SYR ONE (21:50)
[2024-01-12] MEDS ORDERED: ONDANSETRON 4 MG/2 ML VIAL ONE (21:50)
--- NOTE | 2024-01-12 21:57 | ER ---
Nurse's Notes [facility] Name: Marjan Kolb Age: 68 yrs Sex: Female : 1955 Arrival Date: 01/12/2024 Time: 19:14 Bed 7 Private MD: Diagnosis: Chest pain, unspecified Presentation: 01/11 19:17 Chief complaint: Patient states: I had cardiac stents placed yesterday and discharged bm8 today. I havent stopped having chest pain for three days. Its sharp and in my upper left chest. Coronavirus screen: At this time, the client does not indicate any symptoms associated with coronavirus-19. Ebola Screen: Patient negative for fever greater than or equal to 101.5 degrees Fahrenheit, and additional compatible Ebola Virus Disease symptoms Patient denies exposure to infectious person. Patient denies travel to an Ebola-affected area in the 21 days before illness onset. No symptoms or risks identified at this time. Initial Sepsis Screen: Does the patient meet any 2 criteria? No. Patient's initial sepsis screen is negative. Does the patient have a suspected source of infection? No. Patient's initial sepsis screen is negative. Risk Assessment: Do you want to hurt yourself or someone else? Patient reports no desire to harm self or others. Onset of symptoms was January 09, 2024. Care prior to arrival: Oxygen administered. via nasal cannula. 19:17 Method Of Arrival: EMS: [facility] bm8 19:17 Acuity: BLAYNE 2 bm8 Triage Assessment: 19:19 General: Appears in no apparent distress. uncomfortable, Behavior is calm, cooperative, bm8 appropriate for age. Pain: Complains of pain in chest Pain does not radiate. Pain currently is 7 out of 10 on a pain scale. Quality of pain is described as sharp. EENT: Nares with bleeding noted on left Reports nasal discharge that is bloody. Neuro: No deficits noted. Level of Consciousness is awake, alert, obeys commands, Oriented to person, place, time, situation, Appropriate for age. Cardiovascular: Reports chest pain, shortness of breath, Heart tones S1 S2 present Capillary refill < 3 seconds Patient's skin is warm and dry. Respiratory: Airway is patent Respiratory effort is even, unlabored, Respiratory pattern is regular, symmetrical, Breath sounds are clear bilaterally. GI: No signs and/or symptoms were reported involving the gastrointestinal system. : No signs and/or symptoms were reported regarding the genitourinary system. Derm: No signs and/or symptoms reported regarding the dermatologic system. Musculoskeletal: No signs and/or symptoms reported regarding the musculoskeletal system. Historical: - Allergies: 19:19 Azithromycin; bm8 19:19 Bactrim; bm8 19:19 butorphanol; bm8 19:19 Fentanyl; bm8 19:19 Reglan; bm8 19:19 Sulfa (Sulfonamide Antibiotics); bm8 19:19 TRIMETHOPRIM; bm8 - Home Meds: 19:19 aspirin 81 mg Oral tablet daily [Active]; bm8 - PMHx: 19:19 Hypercholesterolemia; Hypertensive disorder; bm8 - Immunization history:: Adult Immunizations unknown. - Infectious Disease History:: Denies. - Social history:: Smoking status: Patient denies any tobacco usage or history of. Screenin:[facility] ED Fall Risk Assessment (Adult) History of falling in the last 3 months, bm8 including since admission No falls in past 3 months (0 pts) Confusion or Disorientation No (0 pts) Intoxicated or Sedated No (0 pts) Impaired Gait No (0 pts) Mobility Assist Device Used No (0 pt) Altered Elimination No (0 pt) Score/Fall Risk Level 0 - 2 = Low Risk Oriented to surroundings, Maintained a safe environment, Educated pt \T\ family on fall prevention, incl call for assistance when getting out of bed, Assessed \T\ reinforced patient's understanding of fall precautions, Provided non-skid footwear, Hourly rounding (assess needs \T\ fall precautionary measures) done, Used ambulatory aids as needed (educated on \T\ assisted with), Used gait belt as appropriate. Abuse screen: Denies threats or abuse. Nutritional screening: No deficits noted. Tuberculosis screening: No symptoms or risk factors identified. Assessment: 19:52 Reassessment: Patient appears in no apparent distress at this time. No changes from bm8 previously documented assessment. Patient and/or family updated on plan of care and expected duration. Pain level reassessed. Patient is alert, oriented x 3, equal unlabored respirations, skin warm/dry/pink. 02 per NC stopped, pt maintaining 96% RA. 20:35 Reassessment: No changes from previously documented assessment. Patient and/or family bm8 updated on plan of care and expected duration. Pain level reassessed. Patient is alert, oriented x 3, equal unlabored respirations, skin warm/dry/pink. provider informed, awaiting new orders Patient states symptoms have not improved. Pain: Complains of pain in chest Pain does not radiate. Pain currently is 10 out of 10 on a pain scale. Quality of pain is described as sharp, Pain began 2-3 days ago. 21:56 Reassessment: [employer] IS REQUESTING A FURNACE TAPPER TO CHIEF NURSE ANESTHETIST PT. UBER FURNACE TAPPER IS reyna ZHOUWN IN A BLACK VW TC. 22:19 Reassessment: Patient and/or family updated on plan of care and expected duration. Pain bm8 level reassessed. Patient is alert, oriented x 3, equal unlabored respirations, skin warm/dry/pink. Patient states feeling better. Patient states symptoms have improved. Vital Signs: 19:17 BP 175 / 99; Pulse 95; Resp 20; Temp 98.5; Pulse Ox 100% on 2 lpm NC; Weight 81.19 kg; bm8 Height 5 ft. 4 in. ; Pain 7/10; 20:35 BP 175 / 104; Pulse 73; Resp 20; Temp 98.5; Pulse Ox 95% ; Pain 10/10; bm8 22:10 BP 161 / 102; Pulse 99; Resp 19; Temp 97; Pulse Ox 97% ; jj7 19:17 Body Mass Index 30.72 (81.19 kg, 162.56 cm) bm8 19:17 Pain Scale: Adult bm8 20:35 Pain Scale: Adult bm8 Crystal Coma Score: 20:35 Eye Response: spontaneous(4). Motor Response: obeys commands(6). Verbal Response: bm8 oriented(5). Total: 15. ED Course: 19:16 Patient arrived in ED. rv1 19:16 Daysi Mendez PA-C is PHCP. sb4 19:16 Yayo August MD is Attending Physician. sb4 19:16 Riaz Lafleur, RN is Primary Nurse. bm8 19:19 Triage completed. bm8 19:19 Arm band placed on right wrist. EKG completed in triage. Results shown to MD. bm8 19:39 EKG done, by ED staff, reviewed by Daysi Mendez PA-C. oe 19:52 Patient has correct armband on for positive identification. Placed in gown. Bed in low bm8 position. Call light in reach. Side rails up X2. Client placed on continuous cardiac and pulse oximetry monitoring. NIBP monitoring applied. hvac lead on. Pulse ox on. NIBP on. Door closed. Noise minimized. Warm blanket given. Pillow given. Verbal reassurance given. Head of bed elevated. 19:52 No provider procedures requiring assistance completed. Inserted saline lock: 22 gauge bm8 in right ,using aseptic technique. foot Blood collected. Flushed with 10 mL NS. Patient maintains SpO2 saturation greater than 95% on room air. 20:04 XRAY Chest (1 view) In Process Unspecified. EDMS 21:27 Dion Randhawa MD is Attending Physician. sb4 21:56 Mike Lund MD is Referral Physician. sb4 22:10 IV discontinued, intact, bleeding controlled, No redness/swelling at site. Pressure jj7 dressing applied. 22:17 Provided Education on: post er care. bm8 Administered Medications: 20:37 Drug: Labetalol IV 10 mg IV at calculated rate once {Note: administered in right foot.} bm8 Route: IV; Rate: calculated rate; Site: Other; 21:55 Follow up: Response: No adverse reaction bm8 22:12 Follow up: Response: Blood pressure is lowered jj7 22:19 Follow up: Response: No adverse reaction bm8 21:55 Drug: morphine IVP or IV 4 mg IVP once over 4 mins Route: IVP; Infused Over: 4 mins; bm8 Site: Other; 22:11 Follow up: Response: Marked relief of symptoms; Pain is decreased jj7 22:19 Follow up: Response: No adverse reaction bm8 21:55 Drug: Ondansetron IVP 4 mg IVP once; over 2 minutes Route: IVP; Site: Other; bm8 22:11 Follow up: Response: No adverse reaction jj7 22:18 Follow up: Response: No adverse reaction bm8 Medication: 19:52 VIS not applicable for this client. bm8 Outcome: 21:57 Discharge ordered by . sb4 22:09 Discharged to home via wheelchair, WITH UBER FURNACE TAPPER jj7 22:09 Condition: improved 22:09 Discharge instructions given to patient, Instructed on discharge instructions, follow up and referral plans. Demonstrated understanding of instructions, follow-up care, 22:20 Patient left the ED. bm8 Signatures: Dispatcher [employer] EDMS Burton Malhotra Juwairiyah RN RN jjDaysi Carlson, NEO PAAny rg4 Ness Nicholas rv1 Riaz Lafleur, RN RN bm8
--- NOTE | 2024-01-12 21:57 | EDPHYS ---
Physician Documentation [facility] Name: Marjan Kolb Age: 68 yrs Sex: Female : 1955 Arrival Date: 01/12/2024 Time: 19:14 Bed 7 Private MD: ED Physician Dion Randhawa HPI: 01/11 19:59 This 68 yrs old Female presents to ER via EMS with complaints of Chest Pain, Nose Bleed.sb4 19:59 Patient complains of left-sided chest pain x 3 days and a nosebleed. She was admitted sb4 yesterday for an NSTEMI, had a stent placed in her RCA and was discharged this morning. She states that the chest pain has persisted and her nose started bleeding when she left the hospital because she was wearing oxygen via nasal cannula. Also endorses some minor shortness of breath. Denies any dizziness or nausea. Historical: - Allergies: 19:19 Azithromycin; bm8 19:19 Bactrim; bm8 19:19 butorphanol; bm8 19:19 Fentanyl; bm8 19:19 Reglan; bm8 19:19 Sulfa (Sulfonamide Antibiotics); bm8 19:19 TRIMETHOPRIM; bm8 - Home Meds: 19:19 aspirin 81 mg Oral tablet daily [Active]; bm8 - PMHx: 19:19 Hypercholesterolemia; Hypertensive disorder; bm8 - Immunization history:: Adult Immunizations unknown. - Infectious Disease History:: Denies. - Social history:: Smoking status: Patient denies any tobacco usage or history of. ROS: 19:59 Constitutional: Negative for fever, chills, and weight loss, sb4 19:59 ENT: Positive for nose bleed, 19:59 Cardiovascular: Positive for chest pain, 19:59 All other systems are negative, Exam: 19:59 Constitutional: This is a well developed, well nourished patient who is awake, alert, sb4 and in no acute distress. Head/Face: Normocephalic, atraumatic. Eyes: Extra-ocular motions intact. Periorbital areas with no swelling, redness, or edema. Cardiovascular: Regular rate and rhythm with a normal S1 and S2. Respiratory: Lungs have equal breath sounds bilaterally, clear to auscultation and percussion. No rales, rhonchi or wheezes noted. No increased work of breathing, no retractions or nasal flaring. Abdomen/GI: Soft, non-tender, no distension. Skin: Warm, dry with normal turgor. Normal color with no rashes, no lesions, and no evidence of cellulitis. 19:59 ENT: Nose: bleeding, is not appreciated, clotted blood, in both nares, Vital Signs: 19:17 BP 175 / 99; Pulse 95; Resp 20; Temp 98.5; Pulse Ox 100% on 2 lpm NC; Weight 81.19 kg; bm8 Height 5 ft. 4 in. ; Pain 7/10; 20:35 BP 175 / 104; Pulse 73; Resp 20; Temp 98.5; Pulse Ox 95% ; Pain 10/10; bm8 22:10 BP 161 / 102; Pulse 99; Resp 19; Temp 97; Pulse Ox 97% ; jj7 19:17 Body Mass Index 30.72 (81.19 kg, 162.56 cm) bm8 19:17 Pain Scale: Adult bm8 20:35 Pain Scale: Adult bm8 Flushing Coma Score: 20:35 Eye Response: spontaneous(4). Motor Response: obeys commands(6). Verbal Response: bm8 oriented(5). Total: 15. MDM: 19:16 Patient medically screened. sb4 21:24 ED course: called Dr. Da Silva twice, no answer. sb4 21:55 Data reviewed: vital signs, nurses notes, EMS record, lab test result(s), EKG, sb4 radiologic studies, and as a result, I will discharge patient. Management of patient was discussed with the following: Chief Operating Officer: Dr. Da Silva, is okay with discharge. Care significantly affected by the following chronic conditions: Hypertension. Counseling: I had a detailed discussion with the patient and/or guardian regarding the historical points, exam findings, and any diagnostic results supporting the discharge/admit diagnosis, the presence of at least one elevated blood pressure reading (>120/80) during this emergency department visit, lab results, radiology results, the need for outpatient follow up, a test rack operator, to return to the emergency department if symptoms worsen or persist or if there are any questions or concerns that arise at home. 01/11 19:38 Order name: Basic Metabolic Panel; Complete Time: 20:27 sb4 01/11 19:38 Order name: CBC with Diff; Complete Time: 20:07 sb4 01/11 19:38 Order name: LFT's; Complete Time: 20:27 sb4 01/11 19:38 Order name: Magnesium; Complete Time: 20:27 sb4 01/11 19:38 Order name: NT PRO-BNP; Complete Time: 20:27 sb4 01/11 19:38 Order name: Troponin HS; Complete Time: 20:27 sb4 01/11 19:38 Order name: XRAY Chest (1 view); Complete Time: 21:00 sb4 01/11 19:38 Order name: Cardiac monitoring; Complete Time: 19:42 sb4 01/11 19:38 Order name: EKG - Nurse/Tech; Complete Time: 19:42 sb4 01/11 19:38 Order name: IV Saline Lock; Complete Time: 19:42 sb4 01/11 19:38 Order name: Labs collected and sent; Complete Time: 19:42 sb4 01/11 19:38 Order name: O2 Per Protocol; Complete Time: 19:42 sb4 01/11 19:38 Order name: O2 Sat Monitoring; Complete Time: 19:42 sb4 01/11 21:58 Order name: Misc. Order: send home with nasal clamp; Complete Time: 22:18 sb4 EC:42 Rate is 90 beats/min. Rhythm is regular, Sinus Rhythm with 1st degree heart block. MN sb4 interval is prolonged at 214 msec. QRS interval is normal at 94 msec. QT interval is normal at 392 msec. No Q waves. T waves are Normal. No ST changes noted. Clinical impression: LVH and No evidence of ischemia. Interpreted by me. Reviewed by me. Administered Medications: 20:37 Drug: Labetalol IV 10 mg IV at calculated rate once {Note: administered in right foot.} bm8 Route: IV; Rate: calculated rate; Site: Other; 21:55 Follow up: Response: No adverse reaction bm8 22:12 Follow up: Response: Blood pressure is lowered jj7 22:19 Follow up: Response: No adverse reaction bm8 21:55 Drug: morphine IVP or IV 4 mg IVP once over 4 mins Route: IVP; Infused Over: 4 mins; bm8 Site: Other; 22:11 Follow up: Response: Marked relief of symptoms; Pain is decreased jj7 22:19 Follow up: Response: No adverse reaction bm8 21:55 Drug: Ondansetron IVP 4 mg IVP once; over 2 minutes Route: IVP; Site: Other; bm8 22:11 Follow up: Response: No adverse reaction jj7 22:18 Follow up: Response: No adverse reaction bm8 Disposition: 21:55 Chart complete. sb4 01/12 01:55 Co-signature as Attending Physician, Dion Randhawa MD I agree with the assessment sp4 and plan of care. I reviewed the patient's care provided by the Advanced Practice Provider and agree with the diagnosis and treatment plan. Chart complete. Disposition Summary: 01/12/24 21:57 Discharge Ordered Notes: Location: Home sb4 Problem: new sb4 Symptoms: have improved sb4 Condition: Stable sb4 Diagnosis - Chest pain, unspecified sb4 Followup: sb4 - With: Mike Lund MD - When: 1 week - Reason: Recheck today's complaints, Re-evaluation by your physician Discharge Instructions: - Discharge Summary Sheet sb4 - Nonspecific Chest Pain, Adult, [id number] sb4 - Nosebleed, Adult, [id number] sb4 Forms: - Patient Portal Instructions sb4 - Leadership Thank You Letter sb4 Signatures: Dispatcher [employer] EDDaysi Calix PA-C PA-C sb4 Dion Randhawa MD MD sp4 Riaz Lafleur RN RN bm8 Benita Guerrero RN jj7 Corrections: (The following items were deleted from the chart) 01/11 19:38 19:38 BASIC METABOLIC PANEL+C.LAB.BRZ ordered. EDMS EDMS 19:38 19:38 CBC+H.LAB.BRZ ordered. EDMS EDMS 19:38 19:38 HEPATIC FUNCTION+C.LAB.BRZ ordered. EDMS EDMS 19:38 19:38 MAGNESIUM+C.LAB.BRZ ordered. EDMS EDMS 19:38 19:38 PROBNP+C.LAB.BRZ ordered. EDMS EDMS 19:38 19:38 Troponin High Sensitivity+C.LAB.BRZ ordered. EDMS EDMS
[2024-01-12 22:28] VITALS: BP 161/102; TEMP 97; O2SAT 97
--- NOTE | 2024-01-13 13:28 | EKG ---
Test Date: 2024-01-12 Test Time: 19:19:54 Pvc Monitor: TRENT MEASUREMENT RESULTS: Intervals: Rate: 90 OK: 214 QRSD: 94 QT: 392 QTc: 479 [place]: P: 39 OK: 214 QRS: -13 T: 171 INTERPRETIVE STATEMENTS: Sinus rhythm with sinus arrhythmia with 1st degree AV block Left ventricular hypertrophy with repolarization abnormality Abnormal ECG Compared to ECG 01/12/2024 09:42:55 No significant changes Electronically Signed On 01-13-24 13:26:24 CDT by Tommy Da Silva
--- NOTE | 2024-01-13 13:32 | EKG ---
Test Date: 2024-01-12 Test Time: 09:39:39 Certified Alcohol Drug Counselor: BENTLEY MEASUREMENT RESULTS: Intervals: Rate: 99 AL: 214 QRSD: 94 QT: 358 QTc: 459 [place]: P: 77 AL: 214 QRS: -7 T: 201 INTERPRETIVE STATEMENTS: Sinus rhythm with sinus arrhythmia with 1st degree AV block Left ventricular hypertrophy with repolarization abnormality Abnormal ECG Compared to ECG 01/11/2024 21:29:13 First degree AV block now present Sinus tachycardia no longer present Electronically Signed On 01-13-24 13:28:19 CDT by Tommy Da Silva
== END 2024-01-12 22:20 | disposition home or self-care (01) ==
LOC: ER 19:14
DX: R07.9 Chest pain, unspecified (principal); I10 Essential (primary) hypertension; E78.00 Pure hypercholesterolemia, unspecified; Z95.5 Presence of coronary angioplasty implant and graft; Z79.82 Long term (current) use of aspirin; Z88.8 Allergy status to other drugs, medicaments and biological substances; Z88.2 Allergy status to sulfonamides
CPT/HCPCS: 93005 ×2; 85025; 80048; 36415; 83735; 80076; 84484; 83880; 71045; 96375; 96374; 99285; J2405

== ENCOUNTER 2024-01-13 08:59 | Emergency (ER) | payer OTHER ==
[2024-01-13 09:37] LABS: Absolute Eosinophils 0.1 K/uL (0-0.5); Absolute Lymphocytes (CBC) 0.5 K/uL (0.7-4.9); Absolute Monocytes 0.5 K/uL (0.1-1.3); Absolute Neutrophil 3.7 K/uL (1.8-8.0); Basophils % 0.3 % (0-1.3); Eosinophils % 1.4 % (0-4.4); Hematocrit 32.6 % (36.0-45.0); Hemoglobin 10.3 g/dL (12.0-15.0); Lymphocytes % 10.4 % (15.3-44.8); MCHC 31.7 g/dL (32.0-36.0); MCV 85.3 fL (80-100); MPV 7.1 fL (7.6-11.3); Monocytes % 10.2 % (3.3-12.3); Neutrophils % 77.7 % (41.7-73.7); Platelets 159 thou/uL (152-406); RBC Red Blood Cell Count 3.82 M/uL (3.86-4.86); Red Cell Distribution Width 15.9 % (12.1-15.2)
[2024-01-13] MEDS ORDERED: MORPHINE 4 MG/ML SYR ONE (09:53)
[2024-01-13 09:58] LABS: Anion Gap 7.3 mEq/L (5.0-15.0); Potassium 3.3 mEq/L (3.5-5.1)
[2024-01-13 10:02] LABS: Troponin High Sensitivity 146.1 pg/mL (<58.9)
--- NOTE | 2024-01-13 10:02 | RAD REPORT ---
EXAM DESCRIPTION: Patrick Single View01/13/2024 9:22 am CLINICAL HISTORY: Chest pain COMPARISON: January 12, 2024 FINDINGS: The lungs appear clear of acute infiltrate. The heart is moderately enlarged. Prominence of the central pulmonary arteries may indicate pulmonary arterial hypertension IMPRESSION: No acute abnormalities displayed
--- NOTE | 2024-01-13 10:47 | EDPHYS ---
Physician Documentation [facility] Name: Marjan Kolb Age: 68 yrs Sex: Female : 1955 Arrival Date: 01/13/2024 Time: 08:59 Bed 6 Private MD: ED Physician Howard Samaniego HPI: 01/12 09:16 This 68 yrs old Female presents to ER via EMS with complaints of Chest Pain. rt 09:16 Patient presents to the ED with chest pain. Patient reports that she has had chest pain rt since last night, had a visit with downtrending troponin. Patient was discharged from a heart cath yesterday. Denies other acute complaints at this time, symptoms are moderate in severity, no other aggravating elevating factors.. Historical: - Allergies: 09:03 Azithromycin; iw 09:03 Bactrim; iw 09:03 butorphanol; iw 09:03 Fentanyl; iw 09:03 Reglan; iw 09:03 Sulfa (Sulfonamide Antibiotics); iw 09:03 TRIMETHOPRIM; iw - PMHx: 09:03 Hypercholesterolemia; Hypertensive disorder; iw - Immunization history:: Client reports having NOT received the Covid vaccine. - Infectious Disease History:: Denies. - Family history:: not pertinent. - Social history:: Smoking status: unknown. ROS: 09:16 Constitutional: Negative for fever, chills, and weight loss, Respiratory: Negative for rt shortness of breath, cough, wheezing, and pleuritic chest pain, Abdomen/GI: Negative for abdominal pain, nausea, vomiting, diarrhea, and constipation, MS/Extremity: Negative for injury and deformity, Skin: Negative for injury, rash, and discoloration, Neuro: Negative for headache, weakness, numbness, tingling, and seizure, 09:16 Cardiovascular: Positive for chest pain, Negative for edema, Exam: 09:16 Constitutional: This is a well developed, well nourished patient who is awake, alert, rt and in no acute distress. Head/Face: Normocephalic, atraumatic. Chest/axilla: Normal chest wall appearance and motion. Nontender with no deformity. No lesions are appreciated. Cardiovascular: Regular rate and rhythm with a normal S1 and S2. No gallops, murmurs, or rubs. Normal PMI, no JVD. No pulse deficits. Respiratory: Lungs have equal breath sounds bilaterally, clear to auscultation and percussion. No rales, rhonchi or wheezes noted. No increased work of breathing, no retractions or nasal flaring. Abdomen/GI: Soft, non-tender, with normal bowel sounds. No distension or tympany. No guarding or rebound. No evidence of tenderness throughout. Skin: Warm, dry with normal turgor. Normal color with no rashes, no lesions, and no evidence of cellulitis. MS/ Extremity: Pulses equal, no cyanosis. Neurovascular intact. Full, normal range of motion. Neuro: Awake and alert, GCS 15, oriented to person, place, time, and situation. Cranial nerves II-XII grossly intact. Motor strength 5/5 in all extremities. Sensory grossly intact. Cerebellar exam normal. Normal gait. 09:57 ECG was reviewed by the Attending Physician. rt Vital Signs: 09:07 BP 150 / 106; Pulse 87; Resp 18; Temp 97.5; Pulse Ox 95% on R/A; Pain 10/10; iw 11:04 BP 197 / 117; Pulse 65; Resp 19; Temp 97.3; Pulse Ox 97% on R/A; Pain 0/10; tm6 09:07 Pain Scale: Adult iw 11:04 Pain Scale: Adult tm6 MDM: 09:02 Patient medically screened. rt 11:47 Differential diagnosis: acute myocardial infarction, coronary artery disease. Data rt reviewed: vital signs, nurses notes, lab test result(s), EKG, radiologic studies. Consideration of Admission/Observation Escalation of care including admission/observation considered. Patient with recent cath, downtrending enzymes, spoke with inhalation therapy teacher, no indications for admission at this time.. Management of patient was discussed with the following: Fagot Heater: Discussed with Dr. Chinchilla, no need to admit.. I considered the following discharge prescriptions or medication management in the emergency department Medications were administered in the Emergency Department. See MAR. Independent interpretation of the following test(s) in the Emergency Department X-Ray: My interpretation is No pneumonia seen on interpretation x-ray images. Test considered but Not performed: CT: Low suspicion for pulmonary embolus, CT angiogram not needed. Care significantly affected by the following chronic conditions: CAD. Counseling: I had a detailed discussion with the patient and/or guardian regarding the historical points, exam findings, and any diagnostic results supporting the discharge/admit diagnosis, lab results, radiology results, the need for further work-up and treatment in the hospital. Response to treatment: the patient's symptoms have mildly improved after treatment. 01/12 09:08 Order name: Basic Metabolic Panel; Complete Time: 10:08 rt 01/12 09:08 Order name: CBC with Diff; Complete Time: 10:08 rt 01/12 09:08 Order name: Magnesium; Complete Time: 10:08 rt 01/12 09:08 Order name: Troponin HS; Complete Time: 10:08 rt 01/12 09:08 Order name: XRAY Chest (1 view); Complete Time: 10:08 rt 01/12 09:08 Order name: Cardiac monitoring; Complete Time: 09:33 rt 01/12 09:08 Order name: EKG - Nurse/Tech; Complete Time: 09:33 rt 01/12 09:08 Order name: IV Saline Lock; Complete Time: 09:33 rt 01/12 09:08 Order name: Labs collected and sent; Complete Time: 09:34 rt 01/12 09:08 Order name: O2 Per Protocol; Complete Time: 09:37 rt 01/12 09:08 Order name: O2 Sat Monitoring; Complete Time: 09:37 rt EC:57 Rate is 85 beats/min. Rhythm is regular, 1st Degree Block with No ectopy. QRS [place] is rt Normal. [place] interval is normal. QRS interval is normal. QT interval is normal. No Q waves. Clinical impression: NSR w/ Non-specific ST/T Changes. Administered Medications: 10:02 Drug: morphine IVP or IV 4 mg IVP once over 4 mins {Note: right foot .} Route: IVP; iw Infused Over: 4 mins; Site: Other; 11:07 Follow up: Response: No adverse reaction; Pain is decreased tm6 Disposition Summary: 01/13/24 10:46 Discharge Ordered Notes: Location: Home rt Problem: an ongoing problem rt Symptoms: have improved rt Condition: Stable rt Diagnosis - Chest pain, unspecified rt Followup: rt - With: Mike Lund MD - When: 2 - 3 days - Reason: Discharge Instructions: - Discharge Summary Sheet rt - Nonspecific Chest Pain, Adult rt Forms: - Medication Reconciliation Form rt - Antibiotic Education rt - Prescription Opioid Use rt - Patient Portal Instructions rt - Leadership Thank You Letter rt Signatures: Dispatcher [employer] Jacquelin Rios, RN RN iw Howard Samaniego MD MD rt Romi Mcneil RN RN tm6 Corrections: (The following items were deleted from the chart) 09:08 09:08 BASIC METABOLIC PANEL+C.LAB.BRZ ordered. EDMS EDMS :08 09:08 CBC+H.LAB.BRZ ordered. EDMS EDMS :08 09:08 MAGNESIUM+C.LAB.BRZ ordered. EDMS EDMS :08 09:08 Troponin High Sensitivity+C.LAB.BRZ ordered. EDMS EDMS :08 09:08 Chest Single View+RAD.RAD.BRZ ordered. EDMS EDMS
--- NOTE | 2024-01-13 10:47 | ER ---
Nurse's Notes [facility] Name: Marjan Kolb Age: 68 yrs Sex: Female : 1955 Arrival Date: 01/13/2024 Time: 08:59 Bed 6 Private MD: Diagnosis: Chest pain, unspecified Presentation: 01/12 09:02 Chief complaint: EMS states: left sided chest pain , had heart cath done three days ago iw , pain started last night. Coronavirus screen: At this time, the client does not indicate any symptoms associated with coronavirus-19. Ebola Screen: No symptoms or risks identified at this time. Risk Assessment: Do you want to hurt yourself or someone else? Patient reports no desire to harm self or others. Care prior to arrival: Medication(s) given: ASA, 81 mg, x 4. 09:02 Method Of Arrival: EMS: [facility] iw 09:02 Acuity: BLAYNE 3 iw 09:03 Initial Sepsis Screen: Does the patient meet any 2 criteria? No. Patient's initial iw sepsis screen is negative. Does the patient have a suspected source of infection? No. Patient's initial sepsis screen is negative. Onset of symptoms was January 12, 2024. Historical: - Allergies: 09:03 Azithromycin; iw 09:03 Bactrim; iw 09:03 butorphanol; iw 09:03 Fentanyl; iw 09:03 Reglan; iw 09:03 Sulfa (Sulfonamide Antibiotics); iw 09:03 TRIMETHOPRIM; iw - PMHx: 09:03 Hypercholesterolemia; Hypertensive disorder; iw - Immunization history:: Client reports having NOT received the Covid vaccine. - Infectious Disease History:: Denies. - Family history:: not pertinent. - Social history:: Smoking status: unknown. Screenin:56 [facility] ED Fall Risk Assessment (Adult) History of falling in the last 3 months, iw including since admission Confusion or Disorientation No (0 pts) Intoxicated or Sedated No (0 pts) Impaired Gait No (0 pts) Mobility Assist Device Used Yes (1 pt) Altered Elimination No (0 pt) Score/Fall Risk Level 0 - 2 = Low Risk Oriented to surroundings, Maintained a safe environment. Abuse screen: Denies threats or abuse. Nutritional screening: No deficits noted. Tuberculosis screening: No symptoms or risk factors identified. Assessment: 09:20 General: Appears in no apparent distress. Behavior is calm, cooperative. Pain: iw Complains of pain in anterior aspect of left upper chest and left breast. Neuro: Level of Consciousness is awake, alert, obeys commands, Oriented to person, place, time, situation, Moves all extremities. Full function. Cardiovascular: Reports chest pain. Respiratory: Respiratory effort is even, unlabored, Respiratory pattern is regular, symmetrical. Derm: Skin is fragile, is thin, Skin is dry. 11:04 Reassessment: Patient appears in no apparent distress at this time. Patient and/or tm6 family updated on plan of care and expected duration. Pain level reassessed. Patient is alert, oriented x 3, equal unlabored respirations, skin warm/dry/pink. Vital Signs: 09:07 BP 150 / 106; Pulse 87; Resp 18; Temp 97.5; Pulse Ox 95% on R/A; Pain 10/10; iw 11:04 BP 197 / 117; Pulse 65; Resp 19; Temp 97.3; Pulse Ox 97% on R/A; Pain 0/10; tm6 09:07 Pain Scale: Adult iw 11:04 Pain Scale: Adult tm6 ED Course: 09:00 Patient arrived in ED. eb 09:01 Howard Samaniego MD is Attending Physician. rt 09:02 Jacquelin Meier, RN is Primary Nurse. iw 09:03 Triage completed. iw 09:03 Arm band placed on. iw 09:24 XRAY Chest (1 view) In Process Unspecified. EDMS 09:32 Inserted saline lock: 20 gauge ,using aseptic technique. right foot Blood collected. zm Flushed with 10 mL NS. 09:33 Initial lab(s) drawn, by me, sent to lab. zm 09:41 Basic Metabolic Panel Sent. zm 09:41 CBC with Diff Sent. zm 09:41 Magnesium Sent. zm 09:42 Door closed. Noise minimized. Warm blanket given. zm 09:42 Troponin HS Sent. zm 09:56 No provider procedures requiring assistance completed. iw 10:00 Patient has correct armband on for positive identification. Bed in low position. Call tm6 light in reach. Side rails up X 1. Client placed on continuous cardiac and pulse oximetry monitoring. NIBP monitoring applied. threat monitoring analyst on. Pulse ox on. NIBP on. 10:05 Notified ED physician of a critical lab result(s). troponin level. ap3 10:46 Mike Lund MD is Referral Physician. rt 11:05 IV discontinued, intact, bleeding controlled. tm6 11:06 Provided Education on: take blood pressure medication when you get home. tm6 Administered Medications: 10:02 Drug: morphine IVP or IV 4 mg IVP once over 4 mins {Note: right foot .} Route: IVP; iw Infused Over: 4 mins; Site: Other; 11:07 Follow up: Response: No adverse reaction; Pain is decreased tm6 Medication: 11:06 VIS not applicable for this client. tm6 Outcome: 10:46 Discharge ordered by MD. rt 11:04 Discharged to home ambulatory, tm6 11:04 Condition: stable 11:04 Discharge instructions given to patient, Instructed on discharge instructions, follow up and referral plans. take previously prescribed blood pressure medication when you get home Demonstrated understanding of instructions, follow-up care, blood pressure medication 11:07 Patient left the ED. tm6 Signatures: Dispatcher [employer] EDMS Jacquelin Meier RN RN iw Danielle Arango RN RN ap3 Jo Ann Huynh Zaina zm [place], Ryan, MD MD rt Romi Mcneil RN RN tm6 Corrections: (The following items were deleted from the chart) 09:37 09:07 BP 150 / 106; Resp 18bpm; iw iw
[2024-01-13 11:12] VITALS: BP 197/117; TEMP 97.3; O2SAT 97
== END 2024-01-13 11:07 | disposition home or self-care (01) ==
LOC: ER 08:59
DX: R07.9 Chest pain, unspecified (principal); I10 Essential (primary) hypertension; Z98.61 Coronary angioplasty status
CPT/HCPCS: 36415; 71045; 80048; 83735; 84484; 85025; 96374; 99285

== ENCOUNTER 2024-01-14 19:54 | Observation (INO) | payer OTHER ==
[2024-01-14] MEDS ORDERED: MUPIROCIN 2% OINT 22GM TUBE TOP ONE (20:26)
[2024-01-14] MEDS ORDERED: ONDANSETRON 4 MG/2 ML VIAL ONE (20:26)
[2024-01-14] MEDS ORDERED: LORazepam 2 MG/ML VIAL ONE (20:26)
[2024-01-14] MEDS ORDERED: MORPHINE 4 MG/ML SYR ONE ×2 (20:27→22:23)
[2024-01-14 21:17] LABS: PT Prothrombin Time 11.2 SECONDS (9.4-12.5)
[2024-01-14 21:39] LABS: AST/SGOT 17 U/L (15-37); Albumin 2.9 g/dL (3.4-5.0); Albumin/Globulin Ratio 0.8 (1.1-1.8); Anion Gap 7.2 mEq/L (5.0-15.0); BUN Blood Urea Nitrogen 26 mg/dL (7-18); Bicarbonate 26 mEq/L (21-32); Bilirubin Total 0.4 mg/dL (0.2-1.0); Globulin 3.5 g/dL (2.3-3.5); Glomerular Filtration Rate 50 ml/min (=/>90); Glucose Level 103 mg/dL (74-106); Magnesium 2.1 mg/dL (1.6-2.4); NT PRO-BNP 7368 pg/mL (<125); Potassium 3.2 mEq/L (3.5-5.1); Protein, Total 6.4 g/dL (6.4-8.2); Sodium Level 142 mEq/L (136-145)
[2024-01-14 21:41] LABS: ALT/SGPT < 14 U/L (13-56); Bilirubin Direct < 0.2 mg/dL (0-0.2); Bilirubin Indirect, Calculated 0.2 mg/dL (0.2-0.8)
[2024-01-14 21:42] LABS: Troponin High Sensitivity 153.5 pg/mL (<58.9)
[2024-01-14 21:43] LABS: Alkaline Phosphatase 63 U/L (45-117)
--- NOTE | 2024-01-14 21:49 | RAD REPORT ---
EXAM DESCRIPTION: RAD - Chest Single View - 01/14/2024 9:24 pm CLINICAL HISTORY: CHEST PAIN Chest pain. COMPARISON: <Comparisons> FINDINGS: Portable technique limits examination quality. Mild pulmonary edema. Fullness is seen in the right hilar region. Right-sided venous catheter is in p lace with tip in the SVC. No pneumothorax. The heart is moderately enlarged in size. Bilateral total shoulder arthroplasties. IMPRESSION: No postprocedure pneumothorax.
[2024-01-14 22:09] LABS: Absolute Eosinophils 0.1 K/uL (0-0.5); Absolute Lymphocytes (CBC) 0.8 K/uL (0.7-4.9); Absolute Monocytes 0.6 K/uL (0.1-1.3); Absolute Neutrophil 3.7 K/uL (1.8-8.0); Basophils % 0.4 % (0-1.3); Eosinophils % 1.4 % (0-4.4); Hematocrit 31.6 % (36.0-45.0); Hemoglobin 10.1 g/dL (12.0-15.0); Lymphocytes % 15.4 % (15.3-44.8); MCH 27.1 pg (27.0-35.0); MCHC 31.9 g/dL (32.0-36.0); MCV 84.9 fL (80-100); Monocytes % 11.5 % (3.3-12.3); Neutrophils % 71.3 % (41.7-73.7); Platelets 158 thou/uL (152-406); RBC Red Blood Cell Count 3.72 M/uL (3.86-4.86); Red Cell Distribution Width 15.8 % (12.1-15.2)
[2024-01-14] MEDS ORDERED: LIDOCAINE 1% 20 ML MDV ONE (22:21)
[2024-01-14] MEDS ORDERED: HYDRALAZINE HCL 20 MG/ML VIAL ONE (22:23)
--- NOTE | 2024-01-14 23:35 | ER ---
Nurse's Notes [facility] Name: Marjan Kolb Age: 68 yrs Sex: Female : 1955 Arrival Date: 01/14/2024 Time: 19:54 Bed 16 Private MD: Diagnosis: NSTEMI , Hypertensive urgency Presentation: 01/13 20:03 Chief complaint: Patient states: cp x3 hours. had stent done 3 days ago. Coronavirus al5 screen: At this time, the client does not indicate any symptoms associated with coronavirus-19. Ebola Screen: No symptoms or risks identified at this time. Initial Sepsis Screen: Does the patient meet any 2 criteria? No. Patient's initial sepsis screen is negative. Does the patient have a suspected source of infection? No. Patient's initial sepsis screen is negative. Risk Assessment: Do you want to hurt yourself or someone else? Patient reports no desire to harm self or others. Onset of symptoms was January 14, 2024. 20:03 Method Of Arrival: EMS: [facility] al5 20:03 Acuity: BLAYNE 2 al5 Triage Assessment: 20:08 General: Appears distressed, uncomfortable, Behavior is cooperative. Pain: Complains of al5 pain in chest Pain currently is 10 out of 10 on a pain scale. EENT: No signs and/or symptoms were reported regarding the EENT system. Neuro: Level of Consciousness is awake, alert, obeys commands, Oriented to person, place, time, situation. Cardiovascular: Patient's skin is warm and dry. Respiratory: Airway is patent Respiratory effort is even, unlabored, Respiratory pattern is regular, symmetrical. GI: No signs and/or symptoms were reported involving the gastrointestinal system. : No signs and/or symptoms were reported regarding the genitourinary system. Derm: Skin is intact, Skin is pink, warm \T\ dry. normal. Musculoskeletal: No signs and/or symptoms reported regarding the musculoskeletal system. Historical: - Allergies: 20:07 Azithromycin; al5 20:07 Bactrim; al5 20:07 butorphanol; al5 20:07 Fentanyl; al5 20:07 Reglan; al5 20:07 Sulfa (Sulfonamide Antibiotics); al5 20:07 TRIMETHOPRIM; al5 - PMHx: 20:07 Hypercholesterolemia; Hypertensive disorder; al5 - PSHx: 20:07 Stented artery; al5 - Immunization history:: Adult Immunizations up to date. - Infectious Disease History:: Denies. - Social history:: Smoking status: Patient denies any tobacco usage or history of. - Family history:: not pertinent. Screenin:17 [facility] ED Fall Risk Assessment (Adult) History of falling in the last 3 months, al5 including since admission No falls in past 3 months (0 pts) Confusion or Disorientation No (0 pts) Intoxicated or Sedated No (0 pts) Impaired Gait No (0 pts) Mobility Assist Device Used No (0 pt) Altered Elimination No (0 pt) Score/Fall Risk Level 0 - 2 = Low Risk Oriented to surroundings, Maintained a safe environment, Hourly rounding (assess needs \T\ fall precautionary measures) done. Abuse screen: Denies threats or abuse. Denies injuries from another. Nutritional screening: No deficits noted. Tuberculosis screening: No symptoms or risk factors identified. Assessment: 20:09 Reassessment: see triage assessment. al5 21:47 Reassessment: Patient appears in no apparent distress at this time. No changes from al5 previously documented assessment. Patient and/or family updated on plan of care and expected duration. Pain level reassessed. Patient is alert, oriented x 3, equal unlabored respirations, skin warm/dry/pink. 22:35 Reassessment: Patient appears in no apparent distress at this time. No changes from al5 previously documented assessment. Patient and/or family updated on plan of care and expected duration. Pain level reassessed. Patient is alert, oriented x 3, equal unlabored respirations, skin warm/dry/pink. 01/14 00:00 Reassessment: Patient appears in no apparent distress at this time. No changes from al5 previously documented assessment. Patient and/or family updated on plan of care and expected duration. Pain level reassessed. Patient is alert, oriented x 3, equal unlabored respirations, skin warm/dry/pink. 01:49 Reassessment: Patient appears in no apparent distress at this time. No changes from al5 previously documented assessment. Patient and/or family updated on plan of care and expected duration. Pain level reassessed. Patient is alert, oriented x 3, equal unlabored respirations, skin warm/dry/pink. Vital Signs: 01/13 20:00 BP 189 / 115; Pulse 71; Resp 18; Pulse Ox 97% on 2 lpm NC; al5 20:03 BP 152 / 127; Pulse 71; Resp 20; Temp 97.8; Pulse Ox 100% on 2 lpm NC; Weight 77.11 kg; al5 Height 5 ft. 2 in. ; Pain 10/10; 20:30 BP 190 / 125; Pulse 7; Resp 18; Pulse Ox 94% on 2 lpm NC; al5 21:00 BP 187 / 122; Pulse 86; Resp 18; Pulse Ox 100% on 2 lpm NC; al5 21:30 BP 179 / 110; Pulse 66; Resp 18; Pulse Ox 100% on 2 lpm NC; al5 22:00 BP 159 / 124; Pulse 82; Resp 18; Pulse Ox 100% on 2 lpm NC; al5 22:30 BP 146 / 78; Pulse 80; Resp 18; Pulse Ox 99% on 2 lpm NC; al5 23:00 BP 133 / 90; Pulse 78; Resp 18; Pulse Ox 97% on 2 lpm NC; al5 23:30 BP 152 / 91; Pulse 80; Resp 18; Pulse Ox 99% on 2 lpm NC; al5 20:03 Body Mass Index 31.09 (77.11 kg, 157.48 cm) al5 20:03 Pain Scale: Adult al5 21:00 Dr. Fernandez at bedside al5 21:30 Dr Fernandez at bedside al5 22:00 Dr Fernandez at bedside al5 [place] Coma Score: 01/14 00:02 Eye Response: spontaneous(4). Motor Response: obeys commands(6). Verbal Response: sp4 oriented(5). Total: 15. ED Course: 01/13 20:03 Patient arrived in ED. al5 20:03 Danielle Ram, ASHLEY is Primary Nurse. al5 20:03 Dion Randhawa MD is Attending Physician. sp4 20:07 Triage completed. al5 20:09 Arm band placed on right wrist. Patient placed in the treatment room, on a stretcher, al5 on oxygen, on campus monitor, on pulse oximetry. 21:18 No provider procedures requiring assistance completed. al5 21:25 XRAY Chest (1 view) In Process Unspecified. EDMS 21:38 Initial lab(s) drawn, by me, sent to lab. sa1 21:38 Accessed Blood collected. central line to R inner jugular done by Dr. Randhawa using al5 ,sterile technique, per hospital protocol. 22:13 Patient has correct armband on for positive identification. Bed in low position. Call al5 light in reach. Side rails up X 1. Provided Education on: processes and procedures. 23:33 Festus Townsend MD is Hospitalizing Provider. sp4 01/14 01:49 Patient admitted, IV remains in place. al5 Administered Medications: 01/13 20:38 Drug: LORazepam IM 2 mg IM once Route: IM; Site: right deltoid; al5 21:35 Follow up: Response: No adverse reaction; Anxiety decreased al5 20:38 Drug: morphine IM 4 mg IM once Route: IM; Site: right deltoid; al5 21:35 Follow up: Response: No adverse reaction; Pain is decreased al5 20:38 Drug: Zofran IM 4 mg IM once Route: IM; Site: right deltoid; al5 21:35 Follow up: Response: No adverse reaction; Nausea is decreased al5 20:38 Drug: Mupirocin Topical Ointment 2 % 1 application Topical once Route: Topical; Site: al5 affected area; 21:34 Follow up: Response: No adverse reaction al5 21:33 Not Given (Physician Discretion): morphineor iv 4 mg IVP once over 4 mins al5 21:33 Not Given (Physician Discretion): diazepam5 mg IVP once al5 21:34 Not Given (Physician Discretion): ondansetron 4 mg IVP once; over 2 minutes al5 22:33 Drug: morphine IVP or IV 4 mg IVP once over 4 mins Route: IVP; Infused Over: 4 mins; al5 Site: right jugular; 23:27 Follow up: Response: No adverse reaction; Pain is decreased al5 22:33 Drug: hydrALAZINE IVP 10 mg IVP once Route: IVP; Site: right jugular; al5 23:27 Follow up: Response: No adverse reaction; Blood pressure is lowered al5 Medication: 22:13 VIS not applicable for this client. al5 Outcome: 23:34 Decision to Hospitalize by Provider. sp4 01/14 02:02 Admitted to Tele accompanied by tech, via stretcher, room 225, with oxygen, with chart, al5 Condition: good Instructed on the need for admit, 02:44 Patient left the ED. al5 Signatures: Dispatcher [employer] EDDion Ornelas MD MD sp4 Danielle Ram RN RN al5 Sultan Vineet 1
--- NOTE | 2024-01-14 23:35 | EDPHYS ---
Physician Documentation [facility] Name: Marjan Kolb Age: 68 yrs Sex: Female : 1955 Arrival Date: 01/14/2024 Time: 19:54 Bed 16 Private MD: ED Physician Dion Randhawa HPI: 01/13 20:03 This 68 yrs old Female presents to ER via Unassigned with complaints of chest sp4 pain . 20:06 [facility] 01/11/2024 - Findings: 1. Left main, ostial 20% to 30%, then normal. 2. LAD, sp4 diffuse mild luminal irregularities with mid 30% disease. 3. Left circ, mild luminal irregularities. 4. RCA, proximal 20% disease and mid 70% disease, most likely the culprit for the non-STEMI. PCI done with Synergy 4.0 x 20 mm drug-eluting stent, distal mild luminal irregularities, RPDA/RPLV mild luminal irregularities. 5. LVEDP is 30 mmHg. Assessment: Non-STEMI, most likely secondary to significant mid RCA disease, PCI done with Synergy 4.0 x 20 mm drug-eluting stent. Plan: 1. Aspirin 81 mg daily for life. 2. Brilinta 180 x1 was given in the labor specialist, continue Brilinta 90 mg p.o. b.i.d. for 12 months. 3. Continue aggressive medical treatment for CAD. MARTIN/MODL . 01/14 00:02 Patient arrives with EMS with worsening chest pain associated with shortness of breath. sp4 History of coronary artery disease with history of prior RCA stent 01/11/2024. Historical: - Allergies: 01/13 20:07 Azithromycin; al5 20:07 Bactrim; al5 20:07 butorphanol; al5 20:07 Fentanyl; al5 20:07 Reglan; al5 20:07 Sulfa (Sulfonamide Antibiotics); al5 20:07 TRIMETHOPRIM; al5 - PMHx: 20:07 Hypercholesterolemia; Hypertensive disorder; al5 - PSHx: 20:07 Stented artery; al5 - Immunization history:: Adult Immunizations up to date. - Infectious Disease History:: Denies. - Social history:: Smoking status: Patient denies any tobacco usage or history of. - Family history:: not pertinent. ROS: 01/14 00:02 Constitutional: Negative for fever, chills, and weight loss, chest pain, positive sp4 shortness of breath. Eyes: Negative for injury, pain, redness, and discharge, All other systems are negative, Exam: 00:02 Constitutional: This is a well developed, well nourished patient who is awake, alert, sp4 and in no acute distress. Head/Face: Normocephalic, atraumatic. Eyes: Pupils equal round and reactive to light, extra-ocular motions intact. Lids and lashes normal. Conjunctiva and sclera are not injected. Cornea within normal limits. Periorbital areas with no swelling, redness, or edema. ENT: Nares patent. No nasal discharge, no septal abnormalities noted. Tympanic membranes are normal and external auditory canals are clear. Oropharynx with no redness, swelling, or masses, exudates, or evidence of obstruction, uvula midline. Mucous membranes moist. Neck: Trachea midline, no thyromegaly or masses palpated, and no cervical lymphadenopathy. Supple, full range of motion without nuchal rigidity, or vertebral point tenderness. Chest/axilla: Normal chest wall appearance and motion. Nontender with no deformity. No lesions are appreciated. Cardiovascular: Regular rate and rhythm with a normal S1 and S2. No gallops, murmurs, or rubs. Normal PMI, no JVD. No pulse deficits. Respiratory: Lungs have equal breath sounds bilaterally, clear to auscultation and percussion. No rales, rhonchi or wheezes noted. No increased work of breathing, no retractions or nasal flaring. Abdomen/GI: Soft, with normal bowel sounds. No distension or tympany. No guarding or rebound. No evidence of tenderness throughout. Back: No spinal tenderness. No costovertebral tenderness. Skin: Warm, dry with normal turgor. Normal color with no rashes, no lesions, and no evidence of cellulitis. MS/ Extremity: Pulses equal, no cyanosis. Neurovascular intact. Full, normal range of motion. Neuro: Awake and alert, GCS 15, oriented to person, place, time, and situation. Cranial nerves II-XII grossly intact. Motor strength 5/5 in all extremities. Sensory grossly intact. Psych: Awake, alert, with orientation to person, place and time. Behavior, mood, and affect are within normal limits 00:03 ECG was reviewed by the Attending Physician. Fibrillation at the rate of 96. EKG time sp4 2156 Vital Signs: 01/13 20:00 BP 189 / 115; Pulse 71; Resp 18; Pulse Ox 97% on 2 lpm NC; al5 20:03 BP 152 / 127; Pulse 71; Resp 20; Temp 97.8; Pulse Ox 100% on 2 lpm NC; Weight 77.11 kg; al5 Height 5 ft. 2 in. ; Pain 10/10; 20:30 BP 190 / 125; Pulse 7; Resp 18; Pulse Ox 94% on 2 lpm NC; al5 21:00 BP 187 / 122; Pulse 86; Resp 18; Pulse Ox 100% on 2 lpm NC; al5 21:30 BP 179 / 110; Pulse 66; Resp 18; Pulse Ox 100% on 2 lpm NC; al5 22:00 BP 159 / 124; Pulse 82; Resp 18; Pulse Ox 100% on 2 lpm NC; al5 22:30 BP 146 / 78; Pulse 80; Resp 18; Pulse Ox 99% on 2 lpm NC; al5 23:00 BP 133 / 90; Pulse 78; Resp 18; Pulse Ox 97% on 2 lpm NC; al5 23:30 BP 152 / 91; Pulse 80; Resp 18; Pulse Ox 99% on 2 lpm NC; al5 20:03 Body Mass Index 31.09 (77.11 kg, 157.48 cm) al5 20:03 Pain Scale: Adult al5 21:00 Dr. Fernandez at bedside al5 21:30 Dr Fernandez at bedside al5 22:00 P at bedside al5 Lefor Coma Score: 01/14 00:02 Eye Response: spontaneous(4). Motor Response: obeys commands(6). Verbal Response: sp4 oriented(5). Total: 15. Procedures: 01/13 21:14 Central Line: the site was prepped with Betadine, in sterile fashion, a triple lumen sp4 catheter was inserted, in the right internal jugular vein, in 1 attempts. placement was verified, by CXR, by blood return, Ultrasound guided central line, the site was dressed with 4X4s, Tegaderm, using sterile technique, the patient tolerated the procedure, well, Central line was placed secondary to exhausted peripheral vascular access. MDM: 21:44 Patient medically screened. sp4 01/14 00:04 Differential diagnosis: ACS. Data reviewed: vital signs, nurses notes, EMS record, [facility] medical records, lab test result(s), EKG, radiologic studies. Consideration of Admission/Observation Patient was admitted/placed on observation. Escalation of care including admission/observation considered. Management of patient was discussed with the following: Hospitalist: Kristian JENKINS . ED course: . ED course: Patient was given central line secondary to exhausted vascular access. Troponin mildly elevated today 153 above from yesterday. Patient was admitted for observation and further troponin trend.. 00:09 ED course: EXAM DESCRIPTION: RAD - Chest Single View - 01/14/2024 9:24 pm CLINICAL sp4 HISTORY: CHEST PAIN Chest pain. COMPARISON: FINDINGS: Portable technique limits examination quality. Mild pulmonary edema. Fullness is seen in the right hilar region. Right-sided venous catheter is in place with tip in the SVC. No pneumothorax. The heart is moderately enlarged in size. Bilateral total shoulder arthroplasties. IMPRESSION: No postprocedure pneumothorax. . 01/13 20:04 Order name: Basic Metabolic Panel; Complete Time: 22:27 sp4 01/13 20:04 Order name: CBC with Diff; Complete Time: 22:27 4 01/13 20:04 Order name: LFT's; Complete Time: 22:27 sp4 01/13 20:04 Order name: Magnesium; Complete Time: 22:27 4 01/13 20:04 Order name: NT PRO-BNP; Complete Time: 22:27 4 01/13 20:04 Order name: PT-INR; Complete Time: 22:27 sp4 01/13 20:04 Order name: Troponin HS; Complete Time: 22:27 sp4 01/14 00:37 Order name: Urinalysis w/ reflexes EDMS 01/14 00:38 Order name: CBC with Automated Diff EDMS 01/14 00:38 Order name: CBC with Automated Diff EDMS 01/14 00:38 Order name: Comprehensive Metabolic Panel EDMS 01/14 00:38 Order name: Comprehensive Metabolic Panel EDMS 01/14 00:38 Order name: Troponin High Sensitivity EDMS 01/14 00:38 Order name: Troponin High Sensitivity EDMS 01/14 00:38 Order name: Troponin High Sensitivity [facility] 01/14 00:38 Order name: Troponin High Sensitivity [facility] 01/13 20:04 Order name: XRAY Chest (1 view); Complete Time: 22:27 [facility] 01/14 00:37 Order name: CONS Physician Consult [facility] 01/13 20:04 Order name: Cardiac monitoring; Complete Time: 22:07 4 01/13 20:04 Order name: EKG - Nurse/Tech; Complete Time: 22:06 [facility] 01/13 20:04 Order name: IV Saline Lock; Complete Time: 21:33 sp4 01/13 20:04 Order name: Labs collected and sent; Complete Time: 21:33 [facility] 01/13 20:04 Order name: O2 Per Protocol; Complete Time: 20:10 sp4 01/13 20:04 Order name: O2 Sat Monitoring; Complete Time: 20:10 4 01/13 20:19 Order name: Central Line Dressing Kit; Complete Time: 20:37 sp4 01/13 20:19 Order name: Central Line Kit; Complete Time: 20:37 4 01/13 20:19 Order name: Chlorhexidine prep; Complete Time: 20:37 sp4 01/13 20:19 Order name: Consent for central line completed; Complete Time: 20:37 sp4 01/13 20:19 Order name: Line Caps x3; Complete Time: 20:37 sp4 01/13 20:19 Order name: NS Flushes x3; Complete Time: 20:37 sp4 01/13 20:19 Order name: Sterile Gloves; Complete Time: 20:38 4 01/13 20:19 Order name: Sterile Probe Cover; Complete Time: 20:38 sp4 01/13 21:20 Order name: Misc. Order: lab redraw - ALL (HEMO); Complete Time: 22:08 vc1 EC:03 Rate is 96 beats/min. Rhythm is irregularly irregular, A fib. QRS [place] is Normal. QRS sp4 interval is normal. QT interval is normal. No Q waves. T waves are Normal. No ST changes noted. Clinical impression: No evidence of ischemia. Interpreted by me. Reviewed by me. Administered Medications: 01/13 20:38 Drug: LORazepam IM 2 mg IM once Route: IM; Site: right deltoid; al5 21:35 Follow up: Response: No adverse reaction; Anxiety decreased al5 20:38 Drug: morphine IM 4 mg IM once Route: IM; Site: right deltoid; al5 21:35 Follow up: Response: No adverse reaction; Pain is decreased al5 20:38 Drug: Zofran IM 4 mg IM once Route: IM; Site: right deltoid; al5 21:35 Follow up: Response: No adverse reaction; Nausea is decreased al5 20:38 Drug: Mupirocin Topical Ointment 2 % 1 application Topical once Route: Topical; Site: al5 affected area; 21:34 Follow up: Response: No adverse reaction al5 21:33 Not Given (Physician Discretion): morphineor iv 4 mg IVP once over 4 mins al5 21:33 Not Given (Physician Discretion): diazepam5 mg IVP once al5 21:34 Not Given (Physician Discretion): ondansetron 4 mg IVP once; over 2 minutes al5 22:33 Drug: morphine IVP or IV 4 mg IVP once over 4 mins Route: IVP; Infused Over: 4 mins; al5 Site: right jugular; 23:27 Follow up: Response: No adverse reaction; Pain is decreased al5 22:33 Drug: hydrALAZINE IVP 10 mg IVP once Route: IVP; Site: right jugular; al5 23:27 Follow up: Response: No adverse reaction; Blood pressure is lowered al5 Disposition Summary: 01/14/24 23:34 Hospitalization Ordered Notes: Hospitalization Status: Observation sp4 Provider: Festus Townsend sp4 Location: Telemetry/MedSurg (observation) sp4 Condition: Stable sp4 Problem: new sp4 Symptoms: have improved sp4 Bed/Room Type: Standard sp4 Room Assignment: 225(01/15/24 00:56) sp Diagnosis - NSTEMI , Hypertensive urgency sp4 Forms: - Medication Reconciliation Form sp4 - SBAR form sp4 - Leadership Thank You Letter sp4 Signatures: Dispatcher [employer] EDRoxy Hurley Vanessa, RN RN vc1 Dion Randhawa MD MD sp4 Danielle Ram RN RN al5 Corrections: (The following items were deleted from the chart) 20:04 20:04 BASIC METABOLIC PANEL+C.LAB.BRZ ordered. EDMS EDMS 20:04 20:04 CBC+H.LAB.BRZ ordered. EDMS EDMS 20:04 20:04 HEPATIC FUNCTION+C.LAB.BRZ ordered. EDMS EDMS 20:04 20:04 MAGNESIUM+C.LAB.BRZ ordered. EDMS EDMS 20:04 20:04 PROBNP+C.LAB.BRZ ordered. EDMS EDMS 20:04 20:04 PROTIME (+INR)+COAG.LAB.BRZ ordered. EDMS EDMS 20:04 20:04 Troponin High Sensitivity+C.LAB.BRZ ordered. EDMS EDMS 20:04 20:04 Chest Single View+RAD.RAD.BRZ ordered. EDMS EDMS 01/14 00:56 01/13 23:34 sp4 sp
[2024-01-15] MEDS ORDERED: ACETAMINOPHEN 325 MG TABLET PO PRN (00:31)
--- NOTE | 2024-01-15 00:31 | P.HP ---
Certification for Inpatient Patient admitted to: Observation With expected LOS: <2 Midnights Practitioner: I am a practitioner with admitting privileges, knowledge of patient current condition, hospital course, and medical plan of care. Services: Services provided to patient in accordance with Admission requirements found in Title 42 Section 412.3 of the Code of Federal Regulations Patient History Date of Service: 01/15/24 Reason for admission: Chest Pain History of Present Illness: 68 yrs old Female with past medical history of hypertension, hyperlipidemia, GERD, CHF, COPD, bipolar disorder, CAD who was recently been admitted to the hospital for NSTEMI and was discharged home came to ER with chest discomfort. Patient underwent left heart catheterization 4 days ago with PCI. Pain is retrosternal radiating to the left arm associated with shortness of breath. Worse with exertion. Denies any fever or chills. No nausea vomiting or diarrhea. Patient was assessed in the ER and was admitted for further management of possible NSTEMI. Allergies fentanyl Allergy (Severe, Verified 07/20/22 08:30) Hives adhesive tape Allergy (Verified 07/20/22 08:30) Rash butorphanol tartrate [From Stadol] Allergy (Verified 07/20/22 08:30) confusion metoclopramide HCl [From Reglan] Allergy (Verified 07/20/22 08:30) Shortness of breath sulfamethoxazole [From Bactrim] Allergy (Verified 07/20/22 08:30) Hives/Rash trimethoprim [From Bactrim] Allergy (Verified 07/20/22 08:30) Hives/Rash acetaminophen [From [place]] Adverse Reaction (Verified 01/15/24 03:19) Nausea/Vomiting hydrocodone [From [place]] Adverse Reaction (Verified 01/15/24 03:19) Nausea/Vomiting Bactrim DS Allergy (Intermediate, Uncoded 07/20/22 08:30) Nausea/Vomiting Home medications list reviewed: Yes Home Medications: Omeprazole 40 mg PO DAILY 08/10/23 Sertraline [Zoloft*] 100 mg PO DAILY 08/10/23 Trazodone [Desyrel*] 50 mg PO BEDTIME 08/10/23 Vericiguat [Verquvo] 20 mg PO DAILY 08/10/23 Albuterol Inhaler [Ventolin Inhaler*] 2 puff IH Q6H PRN 30 Days #1 inh 08/11/23 Amlodipine [Norvasc*] 10 mg PO DAILY 30 Days #30 tab 08/11/23 Buspirone HCl 30 mg PO BID 08/11/23 Hydralazine [Apresoline*] 50 mg PO TID PRN 30 Days #30 tab 08/11/23 Metoprolol Tartrate [Lopressor] 100 mg PO BID 30 Days #60 mg 08/11/23 Mometasone/Formoterol [Dulera 200 Mcg/5 Mcg Inhaler] 2 puff IH BID 30 Days #1 inhaler 08/11/23 Spironolactone [Aldactone*] 25 mg PO BID 30 Days #60 tab 08/11/23 Valsartan [Diovan*] 160 mg PO DAILY tab 08/11/23 Acidophilus/Bulgaricus [Lactinex Packet] 1 each PO DAILY 5 Days #5 packet 10/15/23 Ciprofloxacin HCl [Cipro 500 MG Tablet] 500 mg PO BID #20 tab 01/07/24 Simethicone 125 mg PO TID PRN #30 cap 01/07/24 Aspirin Chewable [Aspirin Chewable*] 81 mg PO DAILY #30 tab.chew 01/12/24 Atorvastatin Calcium [Lipitor] 40 mg PO BEDTIME #30 tab 01/12/24 Ticagrelor [Brilinta*] 90 mg PO BID #60 tab 01/12/24 - Past Medical/Surgical History Diabetic: No Past Medical History: Reviewed- Non-Contributory -: HIV- viral load currently undectable -: CAD -: Bipolar disorder -: Hypertension -: COPD on home O2 @ 2L -: Tobacco abuse -: former Alcohol abuse -: Anemia of chronic disease -: Hyperlipidemia -: GERD with hiatal hernia -: Atrial fibrillation-paroxysmal S/P Watchman procedure -: Chronic diastolic CHF Past Surgical History: Reviewed- Non-Contributory -: Appendectomy Watchman procedure, -: Cholecystectomy -: left and right shoulder rotator cuff repair -: Right foot repair -: Right shoulder replacement -: right wrist -: hiatal hernia repair february 2021 -: right wrist Psychosocial/ Personal History: She lives at home. She is . Family coming to visit from [place] tomorrow - Family History Father -: Heart disease, Hypertension, Lung disease, GI disease, Stroke, Cancer, Liver disease, Kidney disease Notes: Colon cancer Mother -: Hypertension, Lung disease, GI disease, Blood disorders, Other (see notes) Notes: Epilepsy, chronic pain, leukemia - Social History Smoking Status: Former smoker Alcohol use: No CD- Drugs: No Caffeine use: No Review of Systems 10-point ROS is otherwise unremarkable Physical Examination - Vital Signs Temperature: 97.4 F Blood Pressure: 170/94 Pulse: 92 Respirations: 18 Pulse Ox (%): 96 - Physical Exam General: Alert, In no apparent distress, Oriented x3 HEENT: Atraumatic, Normocephalic Neck: Supple, JVD not distended Respiratory: Clear to auscultation bilaterally, Normal air movement Cardiovascular: Regular rate/rhythm, Normal S1 S2 Capillary refill: <2 Seconds Gastrointestinal: Soft and benign, Non-distended, W/out hepatosplenomegaly Musculoskeletal: No clubbing, No swelling Integumentary: No rashes, No breakdown Neurological: Normal speech, Normal strength at 5/5 x4 extr, Cranial nerves 3-12 intact, Normal reflexes 2+ Lymphatics: No axilla or inguinal lymphadenopathy - Studies Laboratory Data (last 24 hrs) 01/14/24 01/14/24 01/14/24 22:00 21:02 21:02 WBC 5.20 Hgb 10.1 L Hct 31.6 L Plt Count 158 PT 11.2 INR 1.00 Sodium 142 Potassium 3.2 L BUN 26 H Creatinine 1.19 H Glucose 103 Magnesium 2.1 Total Bilirubin 0.4 AST 17 ALT < 14 Alkaline Phosphatase 63 Assessment and Plan - Plan NSTEMI Will trend cardiac enzymes Will monitor telemetry Started on aspirin and statin and Brilinta EKG did not show any acute changes suggestive of ischemia Cardiology consult Heart cath 01/11/2024 - Findings: 1. Left main, ostial 20% to 30%, then normal. 2. LAD, diffuse mild luminal irregularities with mid 30% disease. 3. Left circ, mild luminal irregularities. 4. RCA, proximal 20% disease and mid 70% disease, most likely the culprit for the non-STEMI. PCI done with Synergy 4.0 x 20 mm drug-eluting stent, distal mild luminal irregularities, RPDA/RPLV mild luminal irregularities. 5. LVEDP is 30 mmHg. Non-STEMI, most likely secondary to significant mid RCA disease, PCI done with Synergy 4.0 x 20 mm drug-eluting stent. History of CAD Atrial fibrillation s/p watchman Chronic diastolic CHF Hypokalemia : K 3.2 , replete monitor and replete PRN ROHAN Monitor renal parameters Histoy of Hypercholesterolemia/HTN HIV Bipolar disorder HTN COPD on home O2 tobacco abuse former alcohol abuse Anemia of chronic disease HLD GERD with hiatal hernia -continue home medications GI/DVT prophylaxis Advanced directive full code Discharge Plan: Home Plan to discharge in: 24 Hours - Advance Directives Does patient have a Living Will: No Does patient have a Durable POA for Healthcare: No - Code Status/Comfort Care Code Status: Full Code Time Spent Managing Pts Care (In Minutes): 48
[2024-01-15 02:27] VITALS: BMI 27.2
[2024-01-15] MEDS ORDERED: ONDANSETRON 4 MG/2 ML VIAL IV PRN (02:30)
[2024-01-15] MEDS ORDERED: HYDROCODONE/APAP 5/325 MG TAB PO PRN (02:58)
[2024-01-15] MEDS: KETOROLAC 30 MG/ML INJ IV PRN (03:59)
[2024-01-15] MEDS ORDERED: ALBUTEROL INHALER 200 PUFF/6.7 GM IH PRN (05:41)
[2024-01-15] MEDS: PANTOPRAZOLE 40MG TABLET PO SCH (06:19)
[2024-01-15 06:49] LABS: Troponin High Sensitivity 127.8 pg/mL (<58.9)
--- NOTE | 2024-01-15 07:45 | P.PN ---
Date of Service: 01/15/24 subjective Admitted for chest pain, NSTEMI, on Brilinta cardiology following Shortness of breath noted, history of COPD, breathing treatments ordered Review of Systems 10-point ROS is otherwise unremarkable Physical Examination - Vital Signs Reviewed - Physical Exam General: Alert, In no apparent distress, Oriented x3 HEENT: Atraumatic, Normocephalic Neck: Supple, JVD not distended Respiratory: Clear to auscultation bilaterally, Normal air movement Cardiovascular: Regular rate/rhythm, Normal S1 S2 Capillary refill: <2 Seconds Gastrointestinal: Soft and benign, Non-distended, W/out hepatosplenomegaly Musculoskeletal: No clubbing, No swelling Integumentary: No rashes, No breakdown Neurological: Normal speech, Normal strength at 5/5 x4 extr, Cranial nerves 3-12 intact, Normal reflexes 2+ Lymphatics: No axilla or inguinal lymphadenopathy Assessment and Plan - Plan NSTEMI Atypical chest pain Continue metoprolol Paroxysmal atrial fibrillation History of CAD Acute on chronic diastolic congestive heart failure Will trend cardiac enzymes Will monitor telemetry Started on aspirin and statin and Brilinta EKG did not show any acute changes suggestive of ischemia Cardiology consult Heart cath 01/11/2024 - Findings: 1. Left main, ostial 20% to 30%, then normal. 2. LAD, diffuse mild luminal irregularities with mid 30% disease. 3. Left circ, mild luminal irregularities. 4. RCA, proximal 20% disease and mid 70% disease, most likely the culprit for the non-STEMI. PCI done with Synergy 4.0 x 20 mm drug-eluting stent, distal mild luminal irregularities, RPDA/RPLV mild luminal irregularities. 5. LVEDP is 30 mmHg. Non-STEMI, most likely secondary to significant mid RCA disease, PCI done with Synergy 4.0 x 20 mm drug-eluting stent. Cardiology recommendations Educated patient to continue Brilinta, without missed doses, Add Imdur 30 mg daily, aspirin 81 mg she is not take COPD Albuterol, Atrovent nebulizer O2 keep sats greater than 90% Hypokalemia : K 3.2 , replete monitor and replete PRN ROHAN Monitor renal parameters Histoy of Hypercholesterolemia/HTN HIV Bipolar disorder HTN COPD on home O2 tobacco abuse former alcohol abuse Anemia of chronic disease HLD GERD with hiatal hernia -continue home medications GI/DVT prophylaxis Advanced directive full code Discharge Plan: Home Plan to discharge in: 24 Hours - Advance Directives Does patient have a Living Will: No Does patient have a Durable POA for Healthcare: No - Code Status/Comfort Care Code Status: Full Code Time Spent Managing Pts Care (In Minutes): 30 <Diane Recio - Last Filed: 01/15/24 15:34> Patient was seen and examined. Events of the last 24 hours have been noted. Spoke with with FUENTES regarding patient's clinical picture after evaluating and examining the patient independently. I performed a substantial part of the MDM during this patient's care today. I personally made or approved the documented management plan and acknowledge its risk of complications. I agree with the findings and documentation provided in the FUENTES's notes. Patient had a cardiac cath of the week ago. No significant abnormalities. Patient to have some chest discomfort. Given pain medication. Troponins have remained negative. D-dimer is pending. Continue with aspirin and Brilinta. <Liz Qureshi - Last Filed: 01/16/24 03:24>
[2024-01-15] MEDS: METOPROLOL TAR 50 MG TAB PO SCH (08:12)
[2024-01-15] MEDS: SPIRONOLACTONE 25 MG TABLET PO SCH (08:12)
[2024-01-15] MEDS: ASPIRIN 81 MG CHEWABLE TABLET PO SCH (08:12)
[2024-01-15] MEDS: AMLODIPINE 10 MG TAB PO SCH (08:12)
[2024-01-15] MEDS: TICAGRELOR 90 MG TABLET PO SCH ×2 (08:12→21:45)
[2024-01-15 08:13] LABS: Anion Gap 8.1 mEq/L (5.0-15.0); Potassium 3.1 mEq/L (3.5-5.1)
[2024-01-15] MEDS: BUSPIRONE HCL 15 MG TABLET PO SCH (09:00)
[2024-01-15] MEDS ORDERED: DULERA 200/5 (MOMETASONE/FORMOTEROL) INHALER IH SCH (09:00)
[2024-01-15] MEDS: ENOXAPARIN 40 MG/0.4 ML SQ SCH (09:03)
[2024-01-15] MEDS: MORPHINE 2 MG/ML SYR IV ONE (10:11)
[2024-01-15] MEDS: LEVALBUTEROL 1.25 MG/3 ML NEB NEB SCH ×2 (12:47→15:00)
[2024-01-15] MEDS: BUDESONIDE 0.25 MG/2 ML NEB NEB SCH (12:47)
[2024-01-15] MEDS: IPRATROPIUM BROM 0.5MG/2.5ML NEB SCH ×2 (12:47→16:12)
--- NOTE | 2024-01-15 15:06 | P.CNS ---
Date of Consult: 01/15/24 Chief Complaint: Chest Pain History of Present Illness: Patient with PMH of CAD s/p recent PCI RCA for NSTEMI, HTN, HLD, Diastolic heart failure, bipolar, presented with chest pain that has been going since the time she was her last week for NSTEMI, pressure, do not feel right, she syays she has been complaint with medications but she is only taking Brilinta, no aspirin. Allergies fentanyl Allergy (Severe, Verified 07/20/22 08:30) Hives adhesive tape Allergy (Verified 07/20/22 08:30) Rash butorphanol tartrate [From Stadol] Allergy (Verified 07/20/22 08:30) confusion metoclopramide HCl [From Reglan] Allergy (Verified 07/20/22 08:30) Shortness of breath sulfamethoxazole [From Bactrim] Allergy (Verified 07/20/22 08:30) Hives/Rash trimethoprim [From Bactrim] Allergy (Verified 07/20/22 08:30) Hives/Rash acetaminophen [From [place]] Adverse Reaction (Verified 01/15/24 03:19) Nausea/Vomiting hydrocodone [From [place]] Adverse Reaction (Verified 01/15/24 03:19) Nausea/Vomiting Bactrim DS Allergy (Intermediate, Uncoded 07/20/22 08:30) Nausea/Vomiting Home medications list reviewed: Yes Home Medications: Omeprazole 40 mg PO DAILY 08/10/23 Sertraline [Zoloft*] 100 mg PO DAILY 08/10/23 Trazodone [Desyrel*] 50 mg PO BEDTIME 08/10/23 Vericiguat [Verquvo] 20 mg PO DAILY 08/10/23 Albuterol Inhaler [Ventolin Inhaler*] 2 puff IH Q6H PRN 30 Days #1 inh 08/11/23 Amlodipine [Norvasc*] 10 mg PO DAILY 30 Days #30 tab 08/11/23 Buspirone HCl 30 mg PO BID 08/11/23 Hydralazine [Apresoline*] 50 mg PO TID PRN 30 Days #30 tab 08/11/23 Metoprolol Tartrate [Lopressor] 100 mg PO BID 30 Days #60 mg 08/11/23 Mometasone/Formoterol [Dulera 200 Mcg/5 Mcg Inhaler] 2 puff IH BID 30 Days #1 inhaler 08/11/23 Spironolactone [Aldactone*] 25 mg PO BID 30 Days #60 tab 08/11/23 Valsartan [Diovan*] 160 mg PO DAILY tab 08/11/23 Acidophilus/Bulgaricus [Lactinex Packet] 1 each PO DAILY 5 Days #5 packet 10/15/23 Ciprofloxacin HCl [Cipro 500 MG Tablet] 500 mg PO BID #20 tab 01/07/24 Simethicone 125 mg PO TID PRN #30 cap 01/07/24 Aspirin Chewable [Aspirin Chewable*] 81 mg PO DAILY #30 tab.chew 01/12/24 Atorvastatin Calcium [Lipitor] 40 mg PO BEDTIME #30 tab 01/12/24 Ticagrelor [Brilinta*] 90 mg PO BID #60 tab 01/12/24 - Past Medical/Surgical History Diabetic: No -: HIV- viral load currently undectable -: CAD -: Bipolar disorder -: Hypertension -: COPD on home O2 @ 2L -: Tobacco abuse -: former Alcohol abuse -: Anemia of chronic disease -: Hyperlipidemia -: GERD with hiatal hernia -: Atrial fibrillation-paroxysmal S/P Watchman procedure -: Chronic diastolic CHF -: Appendectomy Watchman procedure, -: Cholecystectomy -: left and right shoulder rotator cuff repair -: Right foot repair -: Right shoulder replacement -: right wrist -: hiatal hernia repair february 2021 -: right wrist Psychosocial/ Personal History: She lives at home. She is . Family coming to visit from [place] tomorrow - Family History Father Medical History: Heart disease, Hypertension, Lung disease, GI disease, Stroke, Cancer, Liver disease, Kidney disease Notes: Colon cancer Mother Medical History: Hypertension, Lung disease, GI disease, Blood disorders, Other (see notes) Notes: Epilepsy, chronic pain, leukemia - Social History Smoking Status: Unknown if ever smoked Alcohol use: No CD- Drugs: No Caffeine use: No Place of Residence: Home Review of Systems 10-point ROS is otherwise unremarkable Physical Examination Temp Pulse Resp BP Pulse Ox 97.4 F 87 20 186/98 H 95 01/15/24 12:00 01/15/24 12:00 01/15/24 12:00 01/15/24 12:00 01/15/24 12:00 General: Alert, In no apparent distress HEENT: Atraumatic, PERRLA, Mucous membr. moist/pink, EOMI, Sclerae nonicteric Neck: Supple, 2+ carotid pulse no bruit, No LAD, Without JVD or thyroid abnormality Respiratory: Clear to auscultation bilaterally, Normal air movement Cardiovascular: Regular rate/rhythm, Normal S1 S2 Gastrointestinal: Normal bowel sounds, No tenderness Musculoskeletal: No tenderness Integumentary: No rashes Neurological: Normal gait, Normal speech, Normal tone, Normal affect Lymphatics: No axilla or inguinal lymphadenopathy Laboratory Data (last 24 hrs) 01/14/24 01/14/24 01/14/24 22:00 21:02 21:02 WBC 5.20 Hgb 10.1 L Hct 31.6 L Plt Count 158 PT 11.2 INR 1.00 Sodium 142 Potassium 3.2 L BUN 26 H Creatinine 1.19 H Glucose 103 Magnesium 2.1 Total Bilirubin 0.4 AST 17 ALT < 14 Alkaline Phosphatase 63 - Problems (1) CHF (congestive heart failure) Current Visit: No Status: Acute Plan: Lasix 40 mg IV BID while she is inpatient then switch on lasix 40 mg daily continue metoprolol continue valsartan continue aldactone Qualifiers: Heart failure type: unspecified Heart failure chronicity: chronic Qualified Code(s): I50.9 - Heart failure, unspecified (2) Coronary artery disease Current Visit: No Status: Chronic Plan: Patient chest pain is atypical, reproducible upon palpation of her chest, also her cardiac enzymes are trending down from her last NSTEMI, i think there is opiod drugs seeking behavior here. next time patient present to ED, I do not recommend admission unless cardiac enzymes are significantly elevated or there is EKG changes and by taking detailed history about chest pain characteristics. continue ASA 81 mg daily (she is not taking it) continue Brilinta 90 mg po BID (DISCUSSED IN DETAILS with her that she should not miss any doses, as she said she did not know that she got to pick it from Pharmacy last time she was discharged after PCI) - add Imdur 30 mg daily, although doubt this will change her CP but we can try that and also to help her BP Qualifiers: Coronary Disease-Associated Artery/Lesion type: [place] artery [place] vs. transplanted heart: [place] heart Associated angina: without angina Qualified Code(s): I25.10 - Atherosclerotic heart disease of [place] coronary artery without angina pectoris (3) Hypertension Current Visit: No Status: Chronic Plan: continue medications as above. Qualifiers: Hypertension type: primary hypertension Qualified Code(s): I10 - Essential (primary) hypertension (4) Atrial fibrillation Current Visit: No Status: Chronic Plan: s/p watchman, continue metoprolol Qualifiers: Atrial fibrillation type: paroxysmal Qualified Code(s): I48.0 - Paroxysmal atrial fibrillation
[2024-01-15] MEDS: HYDRALAZINE HCL 25 MG TABLET PO PRN (15:35)
[2024-01-15] MEDS: HYDROMORPHONE HCL 1 MG/ML INJ IV ONE (15:50)
[2024-01-15] MEDS: FUROSEMIDE 40 MG/4 ML VIAL IV ONE (16:15)
--- NOTE | 2024-01-15 19:55 | RAD REPORT ---
EXAM DESCRIPTION: Patrick Single View01/15/2024 6:27 pm CLINICAL HISTORY: chf COMPARISON: No comparisons TECHNIQUE: Portable AP view of the chest. FINDINGS: Lordotic positioning somewhat limits evaluation. Right IJ CVC in place with catheter tip p rojecting at the level of the superior cavoatrial junction. Central interstitial prominence. The lung s are otherwise clear. No pneumothorax or effusion. Moderate cardiomegaly. Apparent mediastinal wide dave, likely relates to prominent major pulmonary vascular markings as well as tortuosity of the thor acic aorta. Bilateral reverse shoulder arthroplasties in place. IMPRESSION: Findings suggestive central congestive changes/CHF. Lordotic positioning somewhat limits evaluation.
[2024-01-15] MEDS: POTASSIUM 25 MEQ EFFERV TAB PO ONE (21:45)
[2024-01-15] MEDS: ATORVASTATIN 40 MG TAB PO SCH (21:46)
[2024-01-16] MEDS: HYDROCODONE/APAP 10/325 TAB PO PRN (04:18)
[2024-01-16 05:09] LABS: Absolute Lymphocytes (CBC) 0.8 K/uL (0.7-4.9); Absolute Neutrophil 7.8 K/uL (1.8-8.0); Basophils % 0.1 % (0-1.3); Eosinophils % 0.1 % (0-4.4); Lymphocytes % 8.2 % (15.3-44.8); MCH 27.8 pg (27.0-35.0); MCHC 33.2 g/dL (32.0-36.0); MCV 83.7 fL (80-100); MPV 7.1 fL (7.6-11.3); Monocytes % 10.7 % (3.3-12.3); Neutrophils % 80.9 % (41.7-73.7); Platelets 163 thou/uL (152-406); RBC Red Blood Cell Count 3.59 M/uL (3.86-4.86); Red Cell Distribution Width 15.6 % (12.1-15.2)
[2024-01-16 05:39] LABS: Albumin 3.1 g/dL (3.4-5.0); Albumin/Globulin Ratio 0.8 (1.1-1.8); Alkaline Phosphatase 55 U/L (45-117); Anion Gap 7.7 mEq/L (5.0-15.0); BUN Blood Urea Nitrogen 22 mg/dL (7-18); Bicarbonate 29 mEq/L (21-32); Bilirubin Total 0.7 mg/dL (0.2-1.0); Globulin 3.7 g/dL (2.3-3.5); Glomerular Filtration Rate 64 ml/min (=/>90); Glucose Level 120 mg/dL (74-106); Potassium 3.7 mEq/L (3.5-5.1); Protein, Total 6.8 g/dL (6.4-8.2); Sodium Level 140 mEq/L (136-145)
[2024-01-16 05:42] LABS: ALT/SGPT < 14 U/L (13-56); AST/SGOT < 10 U/L (15-37)
[2024-01-16] MEDS: MORPHINE 2 MG/ML SYR IV ONE (05:51)
[2024-01-16] MEDS: POTASSIUM CL SA 10 MEQ TAB PO ONE (08:27)
--- NOTE | 2024-01-16 10:04 | EKG ---
Test Date: 2024-01-13 Test Time: 09:30:46 Sider Mechanic: JENELLE MEASUREMENT RESULTS: Intervals: Rate: 85 KS: 240 QRSD: 94 QT: 428 QTc: 509 [place]: P: 58 KS: 240 QRS: -11 T: -78 INTERPRETIVE STATEMENTS: Sinus rhythm with 1st degree AV block Voltage criteria for left ventricular hypertrophy Nonspecific ST and T wave abnormality Prolonged QT Abnormal ECG Compared to ECG 01/12/2024 19:19:54 ST (T wave) deviation now present Prolonged QT interval now present Sinus arrhythmia no longer present Early repolarization no longer present Electronically Signed On 01-16-24 10:02:13 CDT by Tommy Da Silva
[2024-01-16 11:03] VITALS: O2SAT 98
--- NOTE | 2024-01-16 13:46 | P.DS ---
Admission Date: 01/15/24 Discharge Date: 01/16/24 Reason for Admission: Chest Pain Brief History of Present Illness: 68 yrs old Female with past medical history of hypertension, hyperlipidemia, GERD, CHF, COPD, HIV, bipolar disorder, CAD who was recently been admitted to the hospital for NSTEMI and was discharged home came to ER with chest discomfort. Patient underwent left heart catheterization 4 days ago with PCI. Pain is retrosternal radiating to the left arm associated with shortness of breath. Worse with exertion. Denies any fever or chills. No nausea vomiting or diarrhea. Patient was assessed in the ER and was admitted for further management of possible NSTEMI. Hospital Course: Mrs. Kolb's troponin trended downward. She has had no EKG changes. She was cleared by cardiology and will continue Lasix 40 mg p.o. daily, metoprolol, dean sartan, Aldactone, reinitiate Brilinta 90 mg p.o. twice daily and add Imdur 30 mg daily. She should follow-up with her PCP, Dr. Arguello, in 1 week <Cristina Mueller - Last Filed: 01/16/24 14:13> Admission Date: 01/15/24 Discharge Date: 01/16/24 Hospital Course: Pt seen and examined. I agree with the note by the STUMP SHOOTER. Cardiology cleared her for discharge. Pt was encouraged to be compliant with brilinta and aspirin for at least 1 year. Also added imdur. Ok to discharge pt. Follow up with PCP and Cardiology in clinic. <Sandra Mendenhall - Last Filed: 01/16/24 15:47> Disposition: ROUTINE DISCHARGE Discharge Condition: GOOD Vital Signs/Physical Exam: Temp Pulse Resp BP Pulse Ox 97.5 F 85 16 153/86 H 98 01/16/24 12:00 01/16/24 12:00 01/16/24 12:00 01/16/24 12:00 01/16/24 12:00 General: Alert, In no apparent distress, Oriented x3 HEENT: Atraumatic, Normocephalic Neck: Supple Respiratory: Normal air movement Cardiovascular: Normal pulses, Regular rate/rhythm, Normal S1 S2 Capillary refill: <2 Seconds Gastrointestinal: Soft and benign Musculoskeletal: No clubbing Integumentary: Other (scattered ecchymosis) Neurological: Normal speech, Normal tone, Normal affect Lymphatics: No axilla or inguinal lymphadenopathy External genitalia: Deferred Rectal: Deferred Laboratory Data at Discharge: WBC 9.70 thou/uL (4.3-10.9) 01/16/24 04:40 Hgb 10.0 g/dL (12.0-15.0) L 01/16/24 04:40 Hct 30.0 % (36.0-45.0) L 01/16/24 04:40 Plt Count 163 thou/uL (152-406) 01/16/24 04:40 PT 11.2 SECONDS (9.4-12.5) 01/14/24 21:02 INR 1.00 01/14/24 21:02 Sodium 140 mEq/L (136-145) 01/16/24 04:40 Potassium 3.7 mEq/L (3.5-5.1) D 01/16/24 04:40 BUN 22 mg/dL (7-18) H 01/16/24 04:40 Creatinine 0.97 mg/dL (0.55-1.02) 01/16/24 04:40 Glucose 120 mg/dL (74-106) H 01/16/24 04:40 Magnesium 2.1 mg/dL (1.6-2.4) 01/14/24 21:02 Total Bilirubin 0.7 mg/dL (0.2-1.0) 01/16/24 04:40 AST < 10 U/L (15-37) L 01/16/24 04:40 ALT < 14 U/L (13-56) 01/16/24 04:40 Alkaline Phosphatase 55 U/L (45-117) 01/16/24 04:40 <Mueller,Cristina Alvaro - Last Filed: 01/16/24 14:13> Vital Signs/Physical Exam: Temp Pulse Resp BP Pulse Ox 97.5 F 85 16 153/86 H 98 01/16/24 12:00 01/16/24 12:00 01/16/24 12:00 01/16/24 12:00 01/16/24 12:00 Laboratory Data at Discharge: WBC 9.70 thou/uL (4.3-10.9) 01/16/24 04:40 Hgb 10.0 g/dL (12.0-15.0) L 01/16/24 04:40 Hct 30.0 % (36.0-45.0) L 01/16/24 04:40 Plt Count 163 thou/uL (152-406) 01/16/24 04:40 PT 11.2 SECONDS (9.4-12.5) 01/14/24 21:02 INR 1.00 01/14/24 21:02 Sodium 140 mEq/L (136-145) 01/16/24 04:40 Potassium 3.7 mEq/L (3.5-5.1) D 01/16/24 04:40 BUN 22 mg/dL (7-18) H 01/16/24 04:40 Creatinine 0.97 mg/dL (0.55-1.02) 01/16/24 04:40 Glucose 120 mg/dL (74-106) H 01/16/24 04:40 Magnesium 2.1 mg/dL (1.6-2.4) 01/14/24 21:02 Total Bilirubin 0.7 mg/dL (0.2-1.0) 01/16/24 04:40 AST < 10 U/L (15-37) L 01/16/24 04:40 ALT < 14 U/L (13-56) 01/16/24 04:40 Alkaline Phosphatase 55 U/L (45-117) 01/16/24 04:40 <Sandra Mendenhall - Last Filed: 01/16/24 15:47> Diet: AHA Activity: Ad pricila <Cristina Mueller - Last Filed: 01/16/24 14:13> <Sandra Mendenhall - Last Filed: 01/16/24 15:47> Home Medications: Omeprazole 40 mg PO DAILY 08/10/23 Sertraline [Zoloft*] 100 mg PO DAILY 08/10/23 Trazodone [Desyrel*] 50 mg PO BEDTIME 08/10/23 Vericiguat [Verquvo] 20 mg PO DAILY 08/10/23 Albuterol Inhaler [Ventolin Inhaler*] 2 puff IH Q6H PRN 30 Days #1 inh 08/11/23 Amlodipine [Norvasc*] 10 mg PO DAILY 30 Days #30 tab 08/11/23 Buspirone HCl 30 mg PO BID 08/11/23 Hydralazine [Apresoline*] 50 mg PO TID PRN 30 Days #30 tab 08/11/23 Mometasone/Formoterol [Dulera 200 Mcg/5 Mcg Inhaler] 2 puff IH BID 30 Days #1 inhaler 08/11/23 Spironolactone [Aldactone*] 25 mg PO BID 30 Days #60 tab 08/11/23 Valsartan [Diovan*] 160 mg PO DAILY tab 08/11/23 Acidophilus/Bulgaricus [Lactinex Packet] 1 each PO DAILY 5 Days #5 packet 10/15/23 Ciprofloxacin HCl [Cipro 500 MG Tablet] 500 mg PO BID #20 tab 01/07/24 Simethicone 125 mg PO TID PRN #30 cap 01/07/24 Aspirin Chewable [Aspirin Chewable*] 81 mg PO DAILY #30 tab.chew 01/12/24 Atorvastatin Calcium [Lipitor] 40 mg PO BEDTIME #30 tab 01/12/24 Ticagrelor [Brilinta*] 90 mg PO BID #60 tab 01/12/24 Aspirin Chewable [Aspirin Chewable*] 81 mg PO DAILY tab.chew 01/16/24 Furosemide [Lasix] 40 mg PO DAILY #30 tab 01/16/24 Metoprolol Tartrate [Lopressor*] 100 mg PO BID #60 tab 01/16/24 New Medications: Furosemide [Lasix] 40 mg PO DAILY #30 tab Metoprolol Tartrate [Lopressor*] 100 mg PO BID #60 tab Physician Discharge Instructions: Mrs. Klob's troponin trended downward. She has had no EKG changes. She was cleared by cardiology and will continue Lasix 40 mg p.o. daily, metoprolol, valsartan, Aldactone, reinitiate Brilinta 90 mg p.o. twice daily and add Imdur 30 mg daily. She should follow-up with her PCP, Dr. Arguello, in 1 week New prescriptions: Imdur 30mg po daily Continue home medicines as previously prescribed GOAL: Clear understanding of disease process Diet: AHA, low sodium Activity: Fall precautions INSTRUCTIONS: Physician Discharge Instructions: Okay to DC IV and DC home Follow-up with primary care provider in 1 to 2 weeks Follow-up with cardiology in 1 to 2-week Please call the inpatient unit for any questions or concerns regarding hospital stay Return to the ER for worsening symptoms Followup: Lacey VARELA,Lele Peterson DO [Primary Care Provider] - 1-2 Weeks Tommy Da Silva MD [ACTIVE - CAN ADMIT] - 1-2 Weeks
[2024-01-16 16:24] VITALS: BP 135/90; TEMP 98.1
--- NOTE | 2024-01-17 12:44 | EKG ---
Test Date: 2024-01-15 Test Time: 15:28:37 Referral Specialist: GAVIN MEASUREMENT RESULTS: Intervals: Rate: 95 ME: QRSD: 80 QT: 382 QTc: 480 [place]: P: ME: QRS: 79 T: 223 INTERPRETIVE STATEMENTS: Atrial fibrillation Nonspecific ST and T wave abnormality Abnormal ECG Compared to ECG 01/14/2024 21:57:33 Possible ischemia no longer present ST (T wave) deviation still present Electronically Signed On 01-17-24 12:41:56 CDT by Tommy Da Silva
--- NOTE | 2024-01-17 12:46 | EKG ---
Test Date: 2024-01-14 Test Time: 21:57:33 Oysterman: MEASUREMENT RESULTS: Intervals: Rate: 96 CT: QRSD: 92 QT: 340 QTc: 429 [place]: P: CT: QRS: 19 T: 209 INTERPRETIVE STATEMENTS: Atrial fibrillation ST & T wave abnormality, consider inferior ischemia ST & T wave abnormality, consider anterolateral ischemia Abnormal ECG Compared to ECG 01/13/2024 09:30:46 Possible ischemia now present Sinus rhythm no longer present First degree AV block no longer present Left ventricular hypertrophy no longer present Prolonged QT interval no longer present ST (T wave) deviation still present Electronically Signed On 01-17-24 12:43:19 CDT by Tommy Da Silva
== END 2024-01-16 16:29 | disposition home or self-care (01) ==
LOC: ER 19:54 → ERHOLD 01-15 00:31 → 2ND 01-15 01:27
PROVIDERS: ADMIT Family Medicine; ATTEND Hospitalist
DX: R07.9 Chest pain, unspecified (principal); I10 Essential (primary) hypertension; E78.5 Hyperlipidemia, unspecified; K21.9 Gastro-esophageal reflux disease without esophagitis; J44.9 Chronic obstructive pulmonary disease, unspecified; F31.9 Bipolar disorder, unspecified; I25.10 Atherosclerotic heart disease of native coronary artery without angina pectoris; F10.21 Alcohol dependence, in remission; I48.0 Paroxysmal atrial fibrillation; I50.32 Chronic diastolic (congestive) heart failure; E87.6 Hypokalemia; D63.8 Anemia in other chronic diseases classified elsewhere; E78.00 Pure hypercholesterolemia, unspecified; B20 Human immunodeficiency virus [HIV] disease; K44.9 Diaphragmatic hernia without obstruction or gangrene; Z99.81 Dependence on supplemental oxygen; Z88.2 Allergy status to sulfonamides; Z88.1 Allergy status to other antibiotic agents; Z79.82 Long term (current) use of aspirin; Z80.0 Family history of malignant neoplasm of digestive organs; Z82.49 Family history of ischemic heart disease and other diseases of the circulatory system; Z82.3 Family history of stroke; Z87.891 Personal history of nicotine dependence; I25.2 Old myocardial infarction
CPT/HCPCS: 93005 ×3; 85025 ×2; 80048 ×2; 36415 ×2; 83735; 85610; 82947; 85379; 80076; 84484 ×5; 80053; 83880; 71045 ×2; 96375; 96372; 96374; 99285; J3535; J0360; J2001; J7614 ×4; J1940; J7644 ×4; J1650; J7634 ×3; J2270 ×2; J1170; J2405; G0378 ×3

== ENCOUNTER 2024-01-22 14:09 | Emergency (ER) | payer OTHER ==
[2024-01-22 15:03] LABS: Absolute Eosinophils 0.1 K/uL (0-0.5); Absolute Lymphocytes (CBC) 0.5 K/uL (0.7-4.9); Absolute Monocytes 0.5 K/uL (0.1-1.3); Absolute Neutrophil 5.3 K/uL (1.8-8.0); Basophils % 0.4 % (0-1.3); Eosinophils % 1.3 % (0-4.4); MCV 84.4 fL (80-100); MPV 6.8 fL (7.6-11.3); Monocytes % 7.8 % (3.3-12.3); Neutrophils % 82.5 % (41.7-73.7); Nucleated Red Blood Cells % 0.1 % (0-0); Platelets 201 thou/uL (152-406); RBC Red Blood Cell Count 3.32 M/uL (3.86-4.86); Red Cell Distribution Width 15.4 % (12.1-15.2)
[2024-01-22 15:04] LABS: Protime INR 1.07
[2024-01-22 15:16] LABS: AST/SGOT 12 U/L (15-37); Albumin 2.8 g/dL (3.4-5.0); Albumin/Globulin Ratio 0.7 (1.1-1.8); Alkaline Phosphatase 54 U/L (45-117); Anion Gap 5.4 mEq/L (5.0-15.0); BUN Blood Urea Nitrogen 18 mg/dL (7-18); Bicarbonate 26 mEq/L (21-32); Bilirubin Direct 0.2 mg/dL (0-0.2); Bilirubin Indirect, Calculated 0.2 mg/dL (0.2-0.8); Bilirubin Total 0.4 mg/dL (0.2-1.0); Globulin 3.8 g/dL (2.3-3.5); Glomerular Filtration Rate 54 ml/min (=/>90); Glucose Level 118 mg/dL (74-106); Magnesium 2.2 mg/dL (1.6-2.4); NT PRO-BNP 5104 pg/mL (<125); Potassium 3.4 mEq/L (3.5-5.1); Protein, Total 6.6 g/dL (6.4-8.2); Sodium Level 144 mEq/L (136-145)
[2024-01-22 15:19] LABS: ALT/SGPT < 14 U/L (13-56)
--- NOTE | 2024-01-22 15:23 | RAD REPORT ---
EXAM DESCRIPTION: RAD - Chest Single View - 01/22/2024 3:14 pm CLINICAL HISTORY: Chest pain;Dyspnea Chest pain. COMPARISON: Chest Single View dated 01/15/2024; Chest Single View dated 01/14/2024; Chest Single View dated 01/13/2024; Chest Single View dated 01/12/2024 FINDINGS: Portable technique limits examination quality. Mild pulmonary edema. The heart is moderately enlarged in size. No displaced fractures.Bilateral shou lder arthroplasties. IMPRESSION: Mild CHF.
[2024-01-22] MEDS ORDERED: FUROSEMIDE 40 MG/4 ML VIAL ONE (15:33)
--- NOTE | 2024-01-22 16:25 | ER ---
Nurse's Notes [facility] Name: Marjan Kolb Age: 68 yrs Sex: Female : 1955 Arrival Date: 01/22/2024 Time: 14:09 Bed 19 Private MD: Diagnosis: CHF exacerbation, chest pain Presentation: 01/21 14:12 Chief complaint: EMS states: 1 WK POST MO, CP/SOB SINCE 0500. Coronavirus screen: At bp this time, the client does not indicate any symptoms associated with coronavirus-19. Ebola Screen: No symptoms or risks identified at this time. Initial Sepsis Screen: Does the patient meet any 2 criteria? No. Patient's initial sepsis screen is negative. Does the patient have a suspected source of infection? No. Patient's initial sepsis screen is negative. Risk Assessment: Do you want to hurt yourself or someone else? Patient reports no desire to harm self or others. Onset of symptoms was January 22, 2024 at 05:00. Care prior to arrival: Medication(s) given: ASA, 81 mg, x 4, IV initiated. 18 GA, in the right FOOT. 14:12 Method Of Arrival: EMS: [facility] bp 14:12 Acuity: BLAYNE 3 bp Triage Assessment: 14:14 General: Appears in no apparent distress. Behavior is cooperative, appropriate for age, bp anxious. Pain: Complains of pain in chest. Respiratory: Reports shortness of breath Onset: The symptoms/episode began/occurred the patient has mild shortness of breath. Historical: - Allergies: 14:14 Azithromycin; bp 14:14 Bactrim; bp 14:14 butorphanol; bp 14:14 Fentanyl; bp 14:14 Reglan; bp 14:14 Sulfa (Sulfonamide Antibiotics); bp 14:14 TRIMETHOPRIM; bp - PMHx: 14:14 Hypercholesterolemia; Hypertensive disorder; bp - PSHx: 14:14 Stented artery; bp - Immunization history:: Adult Immunizations up to date. - Infectious Disease History:: Denies. - Social history:: Smoking status: Patient reports the use of cigarette tobacco products, unknown amount. Screenin:[address] [facility] ED Fall Risk Assessment (Adult) History of falling in the last 3 months, bp including since admission No falls in past 3 months (0 pts) Confusion or Disorientation No (0 pts) Intoxicated or Sedated No (0 pts) Impaired Gait No (0 pts) Mobility Assist Device Used No (0 pt) Altered Elimination No (0 pt) Score/Fall Risk Level 0 - 2 = Low Risk. Abuse screen: Denies threats or abuse. Denies injuries from another. Nutritional screening: No deficits noted. Tuberculosis screening: No symptoms or risk factors identified. Assessment: 14:19 General: Appears in no apparent distress. Behavior is cooperative, appropriate for age, bp anxious. Cardiovascular: Rhythm is sinus arrythmia. Respiratory: Airway is patent Respiratory effort is even, Breath sounds are coarse bilaterally. 15:55 Reassessment: Patient appears in no apparent distress at this time. Patient is alert, bp oriented x 3, equal unlabored respirations, skin warm/dry/pink. 16:50 Reassessment: Patient appears in no apparent distress at this time. Patient is alert, bp oriented x 3, equal unlabored respirations, skin warm/dry/pink. Vital Signs: 14:12 BP 172 / 91; Pulse 56; Resp 22; Temp 98.7; Pulse Ox 96% ; bp 15:55 BP 165 / 100; Pulse 55; Resp 18; Pulse Ox 100% on 2 lpm NC; bp 16:50 BP 164 / 79; Pulse 55; Resp 19; Pulse Ox 100% ; bp ED Course: 14:11 Patient arrived in ED. bp 14:13 Triage completed. bp 14:18 Arm band placed on. bp 14:18 Maintain EMS IV. Dressing intact. Good blood return noted. Site clean \T\ dry. Gauge \T\ bp site: 18 GA R FOOT. 14:19 Patient has correct armband on for positive identification. bp 14:26 Heladio Collins MD is Attending Physician. sp3 14:30 Carlos Eduardo Olivera, ASHLEY is Primary Nurse. bp 14:54 Initial lab(s) drawn, by me, sent to lab. EKG done, by ED staff, reviewed by Heladio Collins MD. 15:16 XRAY Chest (1 view) In Process Unspecified. EDMS 16:50 No provider procedures requiring assistance completed. IV discontinued, intact, bp bleeding controlled, No redness/swelling at site. Pressure dressing applied. 16:52 Provided Education on: N/A. bp Administered Medications: 15:48 Drug: Furosemide IVP 40 mg IVP once; give over 2 minutes Route: IVP; Site: Other; bp 16:52 Follow up: Response: No adverse reaction bp Medication: 16:52 VIS not applicable for this client. bp Outcome: 16:25 Discharge ordered by sp3 16:50 Discharged to home ambulatory, bp 16:50 Condition: stable 16:50 Discharge instructions given to patient, Instructed on discharge instructions, follow up and referral plans. medication usage, Demonstrated understanding of instructions, follow-up care, medications, Prescriptions given X 1, 16:53 Patient left the ED. bp Signatures: Dispatcher [employer] EDMS Carlos Eduardo Olivera, RN RN bp Heladio Collins MD MD sp3 Corrections: (The following items were deleted from the chart) 16:52 14:12 BP 172 / 91; Pulse 56bpm; Resp 22bpm; Pulse Ox 96%; bp bp
--- NOTE | 2024-01-22 16:25 | EDPHYS ---
Physician Documentation [facility] Name: Marjan Kolb Age: 68 yrs Sex: Female : 1955 Arrival Date: 01/22/2024 Time: 14:09 Bed 19 Private MD: ED Physician Heladio Collins HPI: 01/21 14:37 This 68 yrs old Female presents to ER via EMS with complaints of Shortness Of Breath. sp3 14:37 68-year-old female with a history of hypertension, hyperlipidemia, prior [place] well-known sp3 to the ED now presents again for chest pain or shortness of breath. On her last visit here she was admitted for NSTEMI and CHF exacerbation. She denies any new symptoms from her baseline pattern of pain. She currently denies fever, headache, abdominal pain, vomiting, diarrhea, rash, syncope, near syncope, or any other signs or symptoms on ROS at this time.. Historical: - Allergies: 14:14 Azithromycin; bp 14:14 Bactrim; bp 14:14 butorphanol; bp 14:14 Fentanyl; bp 14:14 Reglan; bp 14:14 Sulfa (Sulfonamide Antibiotics); bp 14:14 TRIMETHOPRIM; bp - PMHx: 14:14 Hypercholesterolemia; Hypertensive disorder; bp - PSHx: 14:14 Stented artery; bp - Immunization history:: Adult Immunizations up to date. - Infectious Disease History:: Denies. - Social history:: Smoking status: Patient reports the use of cigarette tobacco products, unknown amount. ROS: 14:38 Constitutional: Negative for fever, chills, and weight loss, Eyes: Negative for injury, sp3 pain, redness, and discharge, ENT: Negative for injury, pain, and discharge, Neck: Negative for injury, pain, and swelling, Abdomen/GI: Negative for abdominal pain, nausea, vomiting, diarrhea, and constipation, Back: Negative for injury and pain, MS/Extremity: Negative for injury and deformity, Skin: Negative for injury, rash, and discoloration, Neuro: Negative for headache, weakness, numbness, tingling, and seizure, Psych: Negative for depression, anxiety, suicide ideation, homicidal ideation, and hallucinations, Allergy/Immunology: Negative for hives, rash, and allergies, Endocrine: Negative for neck swelling, polydipsia, polyuria, polyphagia, and marked weight changes, Hematologic/Lymphatic: Negative for swollen nodes, abnormal bleeding, and unusual bruising, 14:38 All other systems are negative, Exam: 14:38 Constitutional: This is a well developed, well nourished patient who is awake, alert, sp3 and in no acute distress. Head/Face: Normocephalic, atraumatic. Eyes: Pupils equal round and reactive to light, extra-ocular motions intact. Lids and lashes normal. Conjunctiva and sclera are non-icteric and not injected. Cornea within normal limits. Periorbital areas with no swelling, redness, or edema. Neck: Trachea midline, no thyromegaly or masses palpated, and no cervical lymphadenopathy. Supple, full range of motion without nuchal rigidity, or vertebral point tenderness. No Meningismus. Chest/axilla: Normal chest wall appearance and motion. Nontender with no deformity. No lesions are appreciated. Cardiovascular: Regular rate and rhythm with a normal S1 and S2. No gallops, murmurs, or rubs. Normal PMI, no JVD. No pulse deficits. Respiratory: Lungs have equal breath sounds bilaterally, clear to auscultation and percussion. No rales, rhonchi or wheezes noted. No increased work of breathing, no retractions or nasal flaring. Abdomen/GI: Soft, non-tender, with normal bowel sounds. No distension or tympany. No guarding or rebound. No evidence of tenderness throughout. Back: No spinal tenderness. No costovertebral tenderness. Full range of motion. Skin: Warm, dry with normal turgor. Normal color with no rashes, no lesions, and no evidence of cellulitis. MS/ Extremity: Pulses equal, no cyanosis. Neurovascular intact. Full, normal range of motion. Neuro: Awake and alert, GCS 15, oriented to person, place, time, and situation. Cranial nerves II-XII grossly intact. Motor strength 5/5 in all extremities. Sensory grossly intact. Cerebellar exam normal. Normal gait. Psych: Awake, alert, with orientation to person, place and time. Behavior, mood, and affect are within normal limits. 15:13 ECG was reviewed by the Attending Physician. EKG demonstrates normal sinus rhythm at 60 sp3 bpm with normal intervals, normal QRS, nonspecific ST's ST changes without evidence of acute ischemia. Vital Signs: 14:12 BP 172 / 91; Pulse 56; Resp 22; Temp 98.7; Pulse Ox 96% ; bp 15:55 BP 165 / 100; Pulse 55; Resp 18; Pulse Ox 100% on 2 lpm NC; bp 16:50 BP 164 / 79; Pulse 55; Resp 19; Pulse Ox 100% ; bp MDM: 14:26 Patient medically screened. sp3 14:38 Data reviewed: vital signs, nurses notes, old medical records, lab test result(s), EKG, sp3 radiologic studies. ED course: 68-year-old female with PMH above well-known to the ED now with recurrent chest pain and shortness of breath. We will obtain cardiac workup including EKG, chest x-ray and laboratory values including BNP and troponin. Disposition pending workup and patient course. Differential diagnosis includes ACS spectrum, other pulmonary pathology, CHF, musculoskeletal pain, among others.. 15:22 ED course: Troponin negative and BNP at 5000. Patient in no acute distress resting sp3 comfortably. We will treat with Lasix IV, repeat troponin and if negative and patient having urine output, safely discharge patient home.. 16:24 ED course: Repeat troponin negative. Patient with no respiratory distress whatsoever. sp3 We will safely discharge home on Lasix.. 01/21 14:27 Order name: Basic Metabolic Panel; Complete Time: 15:20 sp3 01/21 14:27 Order name: CBC with Diff; Complete Time: 15:20 sp3 01/21 14:27 Order name: LFT's; Complete Time: 15:20 sp3 01/21 14:27 Order name: Magnesium; Complete Time: 15:20 sp3 01/21 14:27 Order name: NT PRO-BNP; Complete Time: 15:20 sp3 01/21 14:27 Order name: PT-INR; Complete Time: 15:20 sp3 01/21 14:27 Order name: Troponin HS; Complete Time: 15:20 sp3 01/21 15:24 Order name: Troponin High Sensitivity; Complete Time: 16:23 sp3 01/21 14:27 Order name: XRAY Chest (1 view); Complete Time: 15:24 sp3 01/21 14:27 Order name: Cardiac monitoring; Complete Time: 14:33 sp3 01/21 14:27 Order name: EKG - Nurse/Tech; Complete Time: 14:54 sp3 01/21 14:27 Order name: IV Saline Lock; Complete Time: 14:33 sp3 01/21 14:27 Order name: Labs collected and sent; Complete Time: 14:33 sp3 01/21 14:27 Order name: O2 Per Protocol; Complete Time: 14:33 sp3 01/21 14:27 Order name: O2 Sat Monitoring; Complete Time: 14:33 sp3 01/21 15:24 Order name: Misc. Order: Monitor Urine Output; Complete Time: 15:26 sp3 Administered Medications: 15:48 Drug: Furosemide IVP 40 mg IVP once; give over 2 minutes Route: IVP; Site: Other; bp 16:52 Follow up: Response: No adverse reaction bp Disposition Summary: 01/22/24 16:25 Discharge Ordered Notes: Location: Home sp3 Condition: Stable sp3 Diagnosis - CHF exacerbation, chest pain sp3 Followup: sp3 - With: Private Physician - When: Upon discharge from the Emergency Department - Reason: Continuance of care Discharge Instructions: - Discharge Summary Sheet sp3 - Heart Failure Exacerbation sp3 Forms: - Medication Reconciliation Form sp3 - Antibiotic Education sp3 - Prescription Opioid Use sp3 - Patient Portal Instructions sp3 - Leadership Thank You Letter sp3 Prescriptions: - Lasix 20 mg Oral tablet - take 1 tablet ORAL route every 12 hours; 10 tablet; Refills: 0, Product sp3 Selection Permitted Signatures: Dispatcher [employer] Carlos Eduardo Wilkinson, ASHLEY RN Heladio Sorensen MD MD sp3 Corrections: (The following items were deleted from the chart) 15:25 15:25 Troponin High Sensitivity+C.LAB.CHINOZ ordered. EDMS ED
[2024-01-22 17:12] VITALS: TEMP 98.7
[2024-01-22 17:13] VITALS: O2SAT 100
[2024-01-22 17:15] VITALS: BP 164/79
--- NOTE | 2024-01-24 12:41 | EKG ---
Test Date: 2024-01-22 Test Time: 14:51:00 Coal Handler: BP MEASUREMENT RESULTS: Intervals: Rate: 56 NM: QRSD: 80 QT: 492 QTc: 474 [place]: P: NM: QRS: 86 T: -7 INTERPRETIVE STATEMENTS: Junctional rhythm with premature supraventricular complexes in a pattern of bigeminy Anterior infarct, age undetermined Abnormal ECG Compared to ECG 01/15/2024 15:28:37 Atrial premature complex(es) now present Junctional rhythm now present Myocardial infarct finding now present Atrial fibrillation no longer present ST (T wave) deviation no longer present Electronically Signed On 01-24-24 12:38:46 CDT by Tommy Da Silva
== END 2024-01-22 16:53 | disposition home or self-care (01) ==
LOC: ER 14:09
DX: I50.9 Heart failure, unspecified (principal); I10 Essential (primary) hypertension; I25.2 Old myocardial infarction; E78.5 Hyperlipidemia, unspecified; F17.210 Nicotine dependence, cigarettes, uncomplicated
CPT/HCPCS: 93005; 85025; 80048; 36415; 83735; 85610; 80076; 84484 ×2; 83880; 71045; 96374; 99284; J1940

== ENCOUNTER 2024-01-23 13:37 | Emergency (ER) | payer OTHER ==
--- NOTE | 2024-01-23 14:07 | EDPHYS ---
Physician Documentation [facility] Name: Marjan Kolb Age: 69 yrs Sex: Female : 1955 Arrival Date: 01/23/2024 Time: 13:37 Bed 15 Private MD: ED Physician Heladio Collins HPI: 01/22 14:03 This 69 yrs old Female presents to ER via Ambulatory with complaints of Chest Pain. sp3 14:03 69-year-old female well-known to the ED with cardiac history seen by me yesterday with sp3 mild CHF and discharged. Patient left yesterday without her medication. She returns today for chest pain asking for pain medication. Review of systems otherwise negative for fever shortness of breath or any other symptoms.. Historical: - Allergies: 13:45 Azithromycin; db 13:45 Bactrim; db 13:45 butorphanol; db 13:45 Fentanyl; db 13:45 Reglan; db 13:45 Sulfa (Sulfonamide Antibiotics); db 13:45 TRIMETHOPRIM; db - PMHx: 13:45 Hypertensive disorder; Hypercholesterolemia; db - PSHx: 13:45 Stented artery; db - Immunization history:: Adult Immunizations unknown. - Infectious Disease History:: Denies. - Social history:: Smoking status: Patient/guardian denies using tobacco, the patient reports quitting approximately 5 years ago. ROS: 14:04 Constitutional: Negative for fever, chills, and weight loss, Eyes: Negative for injury, sp3 pain, redness, and discharge, Neck: Negative for injury, pain, and swelling, Abdomen/GI: Negative for abdominal pain, nausea, vomiting, diarrhea, and constipation, Back: Negative for injury and pain, MS/Extremity: Negative for injury and deformity, Skin: Negative for injury, rash, and discoloration, Neuro: Negative for headache, weakness, numbness, tingling, and seizure, Psych: Negative for depression, anxiety, suicide ideation, homicidal ideation, and hallucinations, Allergy/Immunology: Negative for hives, rash, and allergies, Endocrine: Negative for neck swelling, polydipsia, polyuria, polyphagia, and marked weight changes, Hematologic/Lymphatic: Negative for swollen nodes, abnormal bleeding, and unusual bruising, 14:04 All other systems are negative, Exam: 14:04 Constitutional: This is a well developed, well nourished patient who is awake, alert, sp3 and in no acute distress. Head/Face: Normocephalic, atraumatic. Eyes: Pupils equal round and reactive to light, extra-ocular motions intact. Lids and lashes normal. Conjunctiva and sclera are non-icteric and not injected. Cornea within normal limits. Periorbital areas with no swelling, redness, or edema. ENT: Nares patent. No nasal discharge, no septal abnormalities noted. External auditory canals are clear. Oropharynx with no redness, swelling, or masses, exudates, or evidence of obstruction, uvula midline. Mucous membranes moist. Neck: Trachea midline, no thyromegaly or masses palpated, and no cervical lymphadenopathy. Supple, full range of motion without nuchal rigidity, or vertebral point tenderness. No Meningismus. Chest/axilla: Normal chest wall appearance and motion. Nontender with no deformity. No lesions are appreciated. Cardiovascular: Regular rate and rhythm with a normal S1 and S2. No gallops, murmurs, or rubs. Normal PMI, no JVD. No pulse deficits. Respiratory: Lungs have equal breath sounds bilaterally, clear to auscultation and percussion. No rales, rhonchi or wheezes noted. No increased work of breathing, no retractions or nasal flaring. Abdomen/GI: Soft, non-tender, with normal bowel sounds. No distension or tympany. No guarding or rebound. No evidence of tenderness throughout. Back: No spinal tenderness. No costovertebral tenderness. Full range of motion. Skin: Warm, dry with normal turgor. Normal color with no rashes, no lesions, and no evidence of cellulitis. MS/ Extremity: Pulses equal, no cyanosis. Neurovascular intact. Full, normal range of motion. Neuro: Awake and alert, GCS 15, oriented to person, place, time, and situation. Cranial nerves II-XII grossly intact. Motor strength 5/5 in all extremities. Sensory grossly intact. Cerebellar exam normal. Normal gait. Psych: Awake, alert, with orientation to person, place and time. Behavior, mood, and affect are within normal limits. 14:04 ECG was reviewed by the Attending Physician. EKG demonstrates normal sinus rhythm at 60 bpm with a first-degree AV block with OK interval 208, normal axis, normal QRS, nonspecific diffuse ST's ST changes without evidence of acute ischemia consistent with prior EKGs. Vital Signs: 13:44 BP 137 / 83; Pulse 58; Resp 16; Temp 98; Pulse Ox 98% ; Weight 81.19 kg; Height 5 ft. 4 db in. ; 13:44 Body Mass Index 30.72 (81.19 kg, 162.56 cm) db MDM: 13:45 Patient medically screened. sp3 14:04 Data reviewed: vital signs, old medical records, EKG. ED course: EKG unchanged and sp3 patient ambulatory in no acute distress demanding pain medication. Upon telling her that we were unable to do that until we get potential further workup, she elected to leave on her own volition.. 01/22 13:45 Order name: EKG; Complete Time: 13:46 sp3 01/22 13:45 Order name: EKG - Nurse/Tech; Complete Time: 14:00 sp3 Administered Medications: No medications were administered Disposition Summary: 01/23/24 14:06 Discharge Ordered Notes: Location: Home sp3 Condition: Stable sp3 Diagnosis - Chest pain sp3 Followup: sp3 - With: Private Physician - When: Upon discharge from the Emergency Department - Reason: Continuance of care Discharge Instructions: - Discharge Summary Sheet sp3 - Nonspecific Chest Pain, Adult sp3 Forms: - Medication Reconciliation Form sp3 - Antibiotic Education sp3 - Prescription Opioid Use sp3 - Patient Portal Instructions sp3 - Leadership Thank You Letter sp3 Signatures: Heladio Collins MD MD sp3 Alejandrina Fairchild RN RN db
--- NOTE | 2024-01-23 14:07 | ER ---
Nurse's Notes [facility] Name: Marjan Kolb Age: 69 yrs Sex: Female : 1955 Arrival Date: 01/23/2024 Time: 13:37 Bed 15 Private MD: Diagnosis: Chest pain Presentation: 01/22 13:44 Chief complaint: Patient states: CHEST PAIN STARTED YESTERDAY MORNING. SEEN YESTERDAY db AND LEFT THE HOSPITAL. CAME BACK TODAY BECAUSE CHEST IS HURTING BAD TODAY. Coronavirus screen: Client denies travel out of the [place] in the last 14 days. At this time, the client does not indicate any symptoms associated with coronavirus-19. Ebola Screen: Patient negative for fever greater than or equal to 101.5 degrees Fahrenheit, and additional compatible Ebola Virus Disease symptoms Patient denies exposure to infectious person. Patient denies travel to an Ebola-affected area in the 21 days before illness onset. No symptoms or risks identified at this time. Initial Sepsis Screen: Does the patient meet any 2 criteria? No. Patient's initial sepsis screen is negative. Does the patient have a suspected source of infection? No. Patient's initial sepsis screen is negative. Risk Assessment: Do you want to hurt yourself or someone else? Patient reports no desire to harm self or others. Onset of symptoms was January 23, 2024. 13:44 Method Of Arrival: Ambulatory db 13:44 Acuity: BLAYNE 2 db Triage Assessment: 13:45 General: Appears in no apparent distress. comfortable, Behavior is calm, cooperative. db Pain: Complains of pain in chest. Neuro: Level of Consciousness is awake, alert, obeys commands, Oriented to person, place, time, situation. Cardiovascular: Reports chest pain, Capillary refill < 3 seconds Patient's skin is warm and dry. Respiratory: Airway is patent Respiratory effort is even, unlabored, Respiratory pattern is regular, symmetrical. Historical: - Allergies: 13:45 Azithromycin; db 13:45 Bactrim; db 13:45 butorphanol; db 13:45 Fentanyl; db 13:45 Reglan; db 13:45 Sulfa (Sulfonamide Antibiotics); db 13:45 TRIMETHOPRIM; db - PMHx: 13:45 Hypertensive disorder; Hypercholesterolemia; db - PSHx: 13:45 Stented artery; db - Immunization history:: Adult Immunizations unknown. - Infectious Disease History:: Denies. - Social history:: Smoking status: Patient/guardian denies using tobacco, the patient reports quitting approximately 5 years ago. Screenin:00 [facility] ED Fall Risk Assessment (Adult) History of falling in the last 3 months, tm6 including since admission No falls in past 3 months (0 pts) Confusion or Disorientation No (0 pts) Intoxicated or Sedated No (0 pts) Impaired Gait No (0 pts) Mobility Assist Device Used No (0 pt) Altered Elimination No (0 pt) Score/Fall Risk Level 0 - 2 = Low Risk Oriented to surroundings, Maintained a safe environment, Educated pt \T\ family on fall prevention, incl call for assistance when getting out of bed. Abuse screen: Denies threats or abuse. Denies injuries from another. Nutritional screening: No deficits noted. Tuberculosis screening: No symptoms or risk factors identified. Assessment: 14:00 General: Appears in no apparent distress. Behavior is cooperative. Pain: Complains of tm6 pain in chest Pain does not radiate. Pain began 1 day ago. Neuro: Level of Consciousness is awake, alert, obeys commands, Oriented to person, place, time, situation. Cardiovascular: Reports chest pain, Patient's skin is warm and dry. Rhythm is sinus bradycardia. Respiratory: Airway is patent Respiratory effort is even, unlabored, Respiratory pattern is regular, symmetrical. GI: No signs and/or symptoms were reported involving the gastrointestinal system. : No signs and/or symptoms were reported regarding the genitourinary system. EENT: No signs and/or symptoms were reported regarding the EENT system. Derm: No signs and/or symptoms reported regarding the dermatologic system. Musculoskeletal: No signs and/or symptoms reported regarding the musculoskeletal system. 14:11 Reassessment: patient left prior to receiving discharge paperwork. Nurse was not able tm6 to get vitals at discharge due to patient leaving. Vital Signs: 13:44 BP 137 / 83; Pulse 58; Resp 16; Temp 98; Pulse Ox 98% ; Weight 81.19 kg; Height 5 ft. 4 db in. ; 13:44 Body Mass Index 30.72 (81.19 kg, 162.56 cm) db ED Course: 13:40 Patient arrived in ED. ra3 13:41 Heladio Collins MD is Attending Physician. sp3 13:45 Triage completed. db 13:45 Arm band placed on right wrist. Patient placed in an exam room. db 13:55 Romi Mcneil, RN is Primary Nurse. tm6 14:00 Patient has correct armband on for positive identification. Bed in low position. Call tm6 light in reach. Side rails up X 1. Provided Education on: use of call jimenez. Client placed on continuous cardiac and pulse oximetry monitoring. NIBP monitoring applied. Pulse ox on. NIBP on. Door closed. Noise minimized. 14:00 EKG done, by ED staff, reviewed by Heladio Collins MD. tm6 14:00 No provider procedures requiring assistance completed. Patient maintains SpO2 tm6 saturation greater than 95% on room air. 14:11 Patient did not have IV access during this emergency room visit. tm6 Administered Medications: No medications were administered Medication: 14:10 VIS not applicable for this client. tm6 Outcome: 14:06 Discharge ordered by . sp3 14:11 Discharged to home ambulatory, tm6 14:11 Condition: stable 14:11 Instructed on unable to give instructions due to patient leaving prior to receiving discharge paperwork 14:13 Patient left the ED. tm6 Signatures: Heladio Collins MD MD sp3 Alejandrina Fairchild, RN RN Romi Mcneil, RN RN tm6 Arleen Chan 3
[2024-01-23 14:18] VITALS: BP 137/83; TEMP 98; O2SAT 98
--- NOTE | 2024-01-24 12:38 | EKG ---
Test Date: 2024-01-23 Test Time: 13:59:00 Gristmiller: XIAO MEASUREMENT RESULTS: Intervals: Rate: 58 AK: 208 QRSD: 94 QT: 482 QTc: 473 [place]: P: 98 AK: 208 QRS: 73 T: -79 INTERPRETIVE STATEMENTS: Sinus bradycardia ST & T wave abnormality, consider inferior ischemia Prolonged QT Abnormal ECG Compared to ECG 01/22/2024 14:51:00 ST (T wave) deviation now present Possible ischemia now present Prolonged QT interval now present Atrial premature complex(es) no longer present Junctional rhythm no longer present Myocardial infarct finding no longer present Electronically Signed On 01-24-24 12:36:55 CDT by Tommy Da Silva
== END 2024-01-23 14:13 | disposition home or self-care (01) ==
LOC: ER 13:37
DX: R07.9 Chest pain, unspecified (principal); I10 Essential (primary) hypertension; E78.00 Pure hypercholesterolemia, unspecified; I50.9 Heart failure, unspecified
CPT/HCPCS: 93005; 99283

== ENCOUNTER 2024-01-23 19:09 | Emergency (ER) | payer OTHER ==
[2024-01-23 20:47] LABS: Absolute Eosinophils 0.1 K/uL (0-0.5); Absolute Lymphocytes (CBC) 0.6 K/uL (0.7-4.9); Absolute Monocytes 0.5 K/uL (0.1-1.3); Absolute Neutrophil 4.9 K/uL (1.8-8.0); Basophils % 0.4 % (0-1.3); Hematocrit 28.7 % (36.0-45.0); Lymphocytes % 9.8 % (15.3-44.8); MCH 26.7 pg (27.0-35.0); MCHC 31.5 g/dL (32.0-36.0); MCV 84.6 fL (80-100); MPV 6.8 fL (7.6-11.3); Monocytes % 8.2 % (3.3-12.3); Neutrophils % 80.6 % (41.7-73.7); Platelets 184 thou/uL (152-406); RBC Red Blood Cell Count 3.39 M/uL (3.86-4.86); Red Cell Distribution Width 15.7 % (12.1-15.2)
[2024-01-23] MEDS ORDERED: ONDANSETRON 4 MG/2 ML VIAL ONE (20:48)
[2024-01-23] MEDS ORDERED: MORPHINE 4 MG/ML SYR ONE (20:49)
[2024-01-23] MEDS ORDERED: HYDRALAZINE HCL 20 MG/ML VIAL ONE ×2 (20:49→21:27)
[2024-01-23 20:56] LABS: Anion Gap 8.6 mEq/L (5.0-15.0); Magnesium 2.2 mg/dL (1.6-2.4); Potassium 3.6 mEq/L (3.5-5.1); Troponin High Sensitivity 12.3 pg/mL (<58.9)
--- NOTE | 2024-01-23 21:35 | RAD REPORT ---
EXAM DESCRIPTION: RAD - Chest Single View - 01/23/2024 9:28 pm CLINICAL HISTORY: CHEST PAIN COMPARISON: Chest Single View dated 01/22/2024; Chest Single View dated 01/15/2024; Chest Single View d ated 01/14/2024; Chest Single View dated 01/13/2024 FINDINGS: Lines: None. Lungs: No evidence of edema or pneumonia. Pleural: No significant pleural effusions or pneumothorax. Cardiac: Cardiomegaly. Mediastinum: Within normal limits. Bones: No acute fractures. Bilateral shoulder arthroplasties . Other: None IMPRESSION: No acute cardiopulmonary disease.
--- NOTE | 2024-01-23 21:59 | EDPHYS ---
Physician Documentation [facility] Name: Marjan Kolb Age: 69 yrs Sex: Female : 1955 Arrival Date: 01/23/2024 Time: 19:09 Bed 9 Private MD: ED Physician Howard Samaniego HPI: 01/22 19:25 This 69 yrs old Female presents to ER via EMS with complaints of Chest Pain. cp 19:25 The patient or guardian reports chest pain that is located primarily in the anterior cp chest wall, bilaterally. Onset: today. 19:25 The pain does not radiate. Associated signs and symptoms: Pertinent positives: cp shortness of breath, Pertinent negatives: abdominal pain, cough, diaphoresis, lower extremity pain, lower extremity swelling, palpitations, syncope, vomiting. 19:25 The chest pain is described as aching. Duration: The patient or guardian reports a cp single episode, that is still ongoing. Historical: - Allergies: 19:16 Azithromycin; cp4 19:16 butorphanol; cp4 19:16 Bactrim; cp4 19:16 Fentanyl; cp4 19:16 Reglan; cp4 19:16 Sulfa (Sulfonamide Antibiotics); cp4 19:16 TRIMETHOPRIM; cp4 - Home Meds: 22:01 metoprolol tartrate 100 mg Oral tablet 2 times per day [Active]; hydralazine 100 mg tl4 Oral tablet 3 times per day [Active]; Clonazepam Oral [Active]; Lasix Oral [Active]; Descovy oral [Active]; Nexium Oral [Active]; Isentress oral [Active]; - PMHx: 19:16 Hypercholesterolemia; Hypertensive disorder; NSTEMI (Stented artery); cp4 22:01 Hepatitis; HIV positive; Esophageal Varices; Chronic obstructive lung disease; tl4 Migraine; Bipolar disorder; Atrial fibrillation; Angina pectoris; - PSHx: 19:16 Stented artery; cp4 - Immunization history:: Adult Immunizations up to date. - Infectious Disease History:: Denies. - Social history:: Smoking status: Patient denies any tobacco usage or history of. ROS: 19:30 Constitutional: Negative for body aches, chills, fever, poor PO intake, cp 19:30 Eyes: Negative for injury, pain, redness, and discharge, cp 19:30 ENT: Negative for drainage from ear(s), ear pain, sore throat, difficulty swallowing, difficulty handling secretions, 19:30 Cardiovascular: Positive for chest pain, Negative for edema, palpitations, 19:30 Respiratory: Positive for shortness of breath, Negative for cough, wheezing, 19:30 Abdomen/GI: Negative for vomiting, diarrhea, constipation, 19:30 Back: Negative for pain at rest, pain with movement, 19:30 Neuro: Negative for altered mental status, dizziness, headache, numbness, syncope, weakness, 19:30 All other systems are negative, Exam: 19:27 ECG was reviewed by the Attending Physician. cp 19:35 Constitutional: The patient appears in no acute distress, alert, awake, cp non-diaphoretic, non-toxic, well developed, well nourished, obese, 19:35 Head/Face: Normocephalic, atraumatic. cp 19:35 Eyes: Periorbital structures: appear normal, Conjunctiva: normal, no exudate, no injection, Sclera: no appreciated abnormality, Lids and lashes: appear normal, bilaterally, 19:35 ENT: External ear(s): are unremarkable, Nose: is normal, Mouth: Lips: moist, Oral mucosa: pink and intact, moist, Posterior pharynx: Airway: no evidence of obstruction, patent, 19:35 Chest/axilla: Inspection: normal, 19:35 Cardiovascular: Rate: normal, Rhythm: regular, Edema: is not appreciated, JVD: is not appreciated, 19:35 Respiratory: the patient does not display signs of respiratory distress, Respirations: labored breathing, that is mild, Breath sounds: decreased breath sounds, are not appreciated, stridor, is not appreciated, wheezing: is not appreciated, 19:35 Abdomen/GI: Inspection: abdomen appears normal, Bowel sounds: active, all quadrants, Palpation: abdomen is soft and non-tender, in all quadrants, 19:35 Back: pain, is absent, ROM is normal, 19:35 Skin: no rash present. 19:35 Neuro: Orientation: to person, place \T\ time. Mentation: is normal, Motor: moves all fours, strength is normal, Sensation: no obvious gross deficits, Vital Signs: 19:13 BP 183 / 87; Pulse 61; Resp 18; Temp 98.7; Pulse Ox 97% ; Weight 81.19 kg; Height 5 ft. cp4 4 in. ; Pain 10/10; 20:00 BP 180 / 106; Pulse 59; Resp 20; Pulse Ox 97% on R/A; Pain 10/10; tl4 20:30 BP 183 / 122; Pulse 68; Resp 22; Pulse Ox 96% on R/A; tl4 21:00 BP 183 / 116; Pulse 57; Resp 20; Pulse Ox 96% on R/A; tl4 21:30 BP 160 / 87; Pulse 62; Resp 17; Pulse Ox 97% on R/A; Pain 7/10; tl4 22:17 BP 158 / 96; Pulse 56; Resp 21; Temp 97.9; Pulse Ox 98% on R/A; tl4 19:13 Body Mass Index 30.72 (81.19 kg, 162.56 cm) cp4 19:13 Pain Scale: Adult cp4 20:00 Pain Scale: Adult tl4 21:30 Pain Scale: Adult tl4 MDM: 19:24 Patient medically screened. cp 21:58 The patient was not given aspirin in the Emergency Department. Administered by EMS. cp 21:58 Differential diagnosis: abnormal EKG, acute myocardial infarction, pleurisy, pneumonia, cp pneumothorax, pulmonary embolus, stable angina, unstable angina. Data reviewed: vital signs, nurses notes, lab test result(s), EKG, radiologic studies, plain films. I considered the following discharge prescriptions or medication management in the emergency department Medications were administered in the Emergency Department. See MAR. Independent interpretation of the following test(s) in the Emergency Department EKG: See my EKG interpretation above. Care significantly affected by the following chronic conditions: Hypertension, Obesity. Counseling: I had a detailed discussion with the patient and/or guardian regarding the historical points, exam findings, and any diagnostic results supporting the discharge/admit diagnosis, the presence of at least one elevated blood pressure reading (>120/80) during this emergency department visit, lab results, radiology results, the need for outpatient follow up, a emg technician, to return to the emergency department if symptoms worsen or persist or if there are any questions or concerns that arise at home. Response to treatment: the patient's symptoms have markedly improved after treatment, and as a result, I will discharge patient. 01/22 19:25 Order name: Basic Metabolic Panel; Complete Time: 20:59 cp 01/22 20:59 Interpretation: Normal except: CL 112; GLUC 108; BUN 27; CRE 1.33; GFR 44. 01/22 19:25 Order name: CBC with Diff; Complete Time: 20:59 01/22 21:57 Interpretation: Normal except: RBC 3.39; HGB 9.0; HCT 28.7; MCH 26.7; MCHC 31.5; RDW cp 15.7; MPV 6.8; ADE% 80.6; LYM% 9.8; LYMA 0.6. 01/22 19:25 Order name: Magnesium; Complete Time: 20:59 01/22 19:25 Order name: Troponin HS; Complete Time: 20:59 01/22 21:58 Interpretation: Reviewed. 01/22 21:05 Order name: XRAY Chest (1 view); Complete Time: 21:43 01/22 21:43 Interpretation: Report review. 01/22 19:22 Order name: EKG; Complete Time: 19:23 01/22 19:22 Order name: EKG - Nurse/Tech; Complete Time: 20:09 01/22 19:25 Order name: Cardiac monitoring; Complete Time: 19:53 01/22 19:25 Order name: IV Saline Lock; Complete Time: 19:53 01/22 19:25 Order name: Labs collected and sent; Complete Time: 20:33 01/22 19:25 Order name: O2 Per Protocol; Complete Time: 19:53 01/22 19:25 Order name: O2 Sat Monitoring; Complete Time: 19:53 cp EC:27 Rate is 91 beats/min. QRS interval is normal. QT interval is normal. Interpreted by me. cp Reviewed by me. Administered Medications: 20:18 Drug: hydrALAZINE IVP 10 mg IVP once {Note: administered in left foot.} Route: IVP; tl4 Site: Other; 21:50 Follow up: Response: No adverse reaction; Blood pressure is lowered tl4 20:20 Drug: Ondansetron IVP 4 mg IVP once; over 2 minutes {Note: administered in left foot.} tl4 Route: IVP; Infused Over: 2 mins; Site: Other; 21:51 Follow up: Response: No adverse reaction tl4 20:24 Drug: morphine IVP or IV 4 mg IVP once over 4 mins {Note: administered in left foot.} tl4 Route: IVP; Infused Over: 4 mins; Site: Other; 21:51 Follow up: Response: No adverse reaction; Pain is decreased tl4 21:57 CANCELLED (Physician Discretion): [id number] mg IVP once cp 22:08 Not Given (Pt was administered 324 mg aspirin by EMS): aspirinchewable tablet 324 mg PO tl4 once; 81 mg tablets x 4 Disposition: 01/23 13:29 Co-signature as Attending Physician, Howard Samaniego MD I reviewed the patient's care rt provided by the Advanced Practice Provider and agree with the diagnosis and treatment plan. Disposition Summary: 01/23/24 21:58 Discharge Ordered Notes: Location: Home cp Problem: an ongoing problem cp Symptoms: have improved cp Condition: Stable cp Diagnosis - Chest pain, unspecified cp - Hypertensive heart disease without heart failure cp Followup: cp - With: Private Physician - When: 2 - 3 days - Reason: Recheck today's complaints Discharge Instructions: - Discharge Summary Sheet cp - Nonspecific Chest Pain, Adult cp - Hypertension, Adult cp - Aspirin and Your Heart cp Forms: - Medication Reconciliation Form cp - Antibiotic Education cp - Prescription Opioid Use cp - Patient Portal Instructions cp - Leadership Thank You Letter cp Signatures: Dispatcher [employer] EDWY Justus Neil PA PA cp Howard Samaniego MD MD rt Isabel Neri cp4 Arron Mondragon RN RN tl4 Corrections: (The following items were deleted from the chart) 01/22 21:57 21:06 hydrALAZINE IVP 10 mg IVP once ordered. cp cp 22:05 20:59 Thorax Wo Con+CT.RAD.BRZ ordered. EDWY EDMS 01/23 12:57 01/22 19:25 Associated signs and symptoms: Pertinent negatives: abdominal pain, cough, cp diaphoresis, lower extremity pain, lower extremity swelling, palpitations, shortness of breath, syncope, vomiting, cp
--- NOTE | 2024-01-23 21:59 | ER ---
Nurse's Notes [facility] Name: Marjan Kolb Age: 69 yrs Sex: Female : 1955 Arrival Date: 01/23/2024 Time: 19:09 Bed 9 Private MD: Diagnosis: Chest pain, unspecified;Hypertensive heart disease without heart failure Presentation: 01/22 19:13 Chief complaint: EMS states: patient was walking to hospital when a bystander called 4 EMS. Reports chest pain and shortness of breath. Reports 2 NSTEMIs recently and was recent cathed. Chief complaint: EMS states: Gave 324 mg ASA and 1 nitro. Coronavirus screen: Client denies travel out of the [place] in the last 14 days. At this time, the client does not indicate any symptoms associated with coronavirus-19. Ebola Screen: Patient negative for fever greater than or equal to 101.5 degrees Fahrenheit, and additional compatible Ebola Virus Disease symptoms Patient denies exposure to infectious person. Patient denies travel to an Ebola-affected area in the 21 days before illness onset. No symptoms or risks identified at this time. Initial Sepsis Screen: Does the patient meet any 2 criteria? No. Patient's initial sepsis screen is negative. Does the patient have a suspected source of infection? No. Patient's initial sepsis screen is negative. Risk Assessment: Do you want to hurt yourself or someone else? Patient reports no desire to harm self or others. Onset of symptoms was January 23, 2024. 19:13 Method Of Arrival: EMS: [facility] cp4 19:13 Acuity: BLAYNE 3 cp4 20:44 Care prior to arrival: Medication(s) given: ASA, 81 mg, x 4. tl4 Historical: - Allergies: 19:16 Azithromycin; cp4 19:16 butorphanol; cp4 19:16 Bactrim; cp4 19:16 Fentanyl; cp4 19:16 Reglan; cp4 19:16 Sulfa (Sulfonamide Antibiotics); cp4 19:16 TRIMETHOPRIM; cp4 - Home Meds: 22:01 metoprolol tartrate 100 mg Oral tablet 2 times per day [Active]; hydralazine 100 mg tl4 Oral tablet 3 times per day [Active]; Clonazepam Oral [Active]; Lasix Oral [Active]; Descovy oral [Active]; Nexium Oral [Active]; Isentress oral [Active]; - PMHx: 19:16 Hypercholesterolemia; Hypertensive disorder; NSTEMI (Stented artery); cp4 22:01 Hepatitis; HIV positive; Esophageal Varices; Chronic obstructive lung disease; tl4 Migraine; Bipolar disorder; Atrial fibrillation; Angina pectoris; - PSHx: 19:16 Stented artery; cp4 - Immunization history:: Adult Immunizations up to date. - Infectious Disease History:: Denies. - Social history:: Smoking status: Patient denies any tobacco usage or history of. Screenin:45 [facility] ED Fall Risk Assessment (Adult) History of falling in the last 3 months, tl4 including since admission No falls in past 3 months (0 pts) Confusion or Disorientation No (0 pts) Intoxicated or Sedated No (0 pts) Impaired Gait No (0 pts) Mobility Assist Device Used No (0 pt) Altered Elimination No (0 pt) Score/Fall Risk Level 0 - 2 = Low Risk Oriented to surroundings, Maintained a safe environment, Educated pt \T\ family on fall prevention, incl call for assistance when getting out of bed, Assessed \T\ reinforced patient's understanding of fall precautions. Abuse screen: Denies threats or abuse. Denies injuries from another. Nutritional screening: No deficits noted. Tuberculosis screening: No symptoms or risk factors identified. Assessment: 19:43 General: Appears in no apparent distress. Behavior is calm, cooperative. Neuro: Level tl4 of Consciousness is awake, alert, obeys commands, Oriented to person, place, time, situation. Cardiovascular: Reports chest pain, Denies diaphoresis, nausea, palpitations, shortness of breath, syncope, Capillary refill < 3 seconds Patient's skin is warm and dry. Rhythm is atrial fibrillation. Respiratory: Airway is patent Respiratory effort is even, unlabored, Respiratory pattern is regular, symmetrical. GI: No signs and/or symptoms were reported involving the gastrointestinal system. : No signs and/or symptoms were reported regarding the genitourinary system. EENT: No signs and/or symptoms were reported regarding the EENT system. Derm: No signs and/or symptoms reported regarding the dermatologic system. Musculoskeletal: No signs and/or symptoms reported regarding the musculoskeletal system. 19:43 Pain: Complains of pain in anterior aspect of left upper chest Pain does not radiate. tl4 Pain currently is 8 out of 10 on a pain scale. Pain began suddenly, 4 hours ago. 20:47 Reassessment: Patient and/or family updated on plan of care and expected duration. Pain tl4 level reassessed. Patient is alert, oriented x 3, equal unlabored respirations, skin warm/dry/pink. Pt continues to complain of upper left chest and left side neck discomfort. Provider Page aware, orders will be put in for pain management. 21:53 Reassessment: Patient and/or family updated on plan of care and expected duration. Pain tl4 level reassessed. Patient is alert, oriented x 3, equal unlabored respirations, skin warm/dry/pink. Pt states she feels better. Provider Page aware. Call jimenez at bedside. Will continue to monitor. Vital Signs: 19:13 BP 183 / 87; Pulse 61; Resp 18; Temp 98.7; Pulse Ox 97% ; Weight 81.19 kg; Height 5 ft. cp4 4 in. ; Pain 10/10; 20:00 BP 180 / 106; Pulse 59; Resp 20; Pulse Ox 97% on R/A; Pain 10/10; tl4 20:30 BP 183 / 122; Pulse 68; Resp 22; Pulse Ox 96% on R/A; tl4 21:00 BP 183 / 116; Pulse 57; Resp 20; Pulse Ox 96% on R/A; tl4 21:30 BP 160 / 87; Pulse 62; Resp 17; Pulse Ox 97% on R/A; Pain 7/10; tl4 22:17 BP 158 / 96; Pulse 56; Resp 21; Temp 97.9; Pulse Ox 98% on R/A; tl4 19:13 Body Mass Index 30.72 (81.19 kg, 162.56 cm) cp4 19:13 Pain Scale: Adult cp4 20:00 Pain Scale: Adult tl4 21:30 Pain Scale: Adult tl4 ED Course: 19:13 Patient arrived in ED. cp4 19:16 Triage completed. cp4 19:16 Arm band placed on right wrist. Patient placed in waiting room. cp4 19:22 Justus Neil PA is PHCP. cp 19:22 Howard Samaniego MD is Attending Physician. cp 19:51 Arron Mondragon RN is Primary Nurse. tl4 20:33 Basic Metabolic Panel Sent. tl4 20:34 CBC with Diff Sent. tl4 20:34 Magnesium Sent. tl4 20:34 Troponin HS Sent. tl4 20:46 Patient has correct armband on for positive identification. Bed in low position. Call tl4 light in reach. Side rails up X2. Provided Education on: call jimenez. Client placed on continuous cardiac and pulse oximetry monitoring. NIBP monitoring applied. potline monitor on. Door closed. Noise minimized. Lights dimmed. Moved to private room. 20:46 No provider procedures requiring assistance completed. Maintain EMS IV. Dressing tl4 intact. Good blood return noted. Site clean \T\ dry. Gauge \T\ site: 20g left dorsal foot. Flushed with 10 mL NS. Patient maintains SpO2 saturation greater than 95% on room air. 21:30 XRAY Chest (1 view) In Process Unspecified. EDMS 22:18 IV discontinued, intact, bleeding controlled, No redness/swelling at site. Pressure tl4 dressing applied. Administered Medications: 20:18 Drug: hydrALAZINE IVP 10 mg IVP once {Note: administered in left foot.} Route: IVP; tl4 Site: Other; 21:50 Follow up: Response: No adverse reaction; Blood pressure is lowered tl4 20:20 Drug: Ondansetron IVP 4 mg IVP once; over 2 minutes {Note: administered in left foot.} tl4 Route: IVP; Infused Over: 2 mins; Site: Other; 21:51 Follow up: Response: No adverse reaction tl4 20:24 Drug: morphine IVP or IV 4 mg IVP once over 4 mins {Note: administered in left foot.} tl4 Route: IVP; Infused Over: 4 mins; Site: Other; 21:51 Follow up: Response: No adverse reaction; Pain is decreased tl4 21:57 CANCELLED (Physician Discretion): [id number] mg IVP once cp 22:08 Not Given (Pt was administered 324 mg aspirin by EMS): aspirinchewable tablet 324 mg PO tl4 once; 81 mg tablets x 4 Medication: 20:45 VIS not applicable for this client. tl4 Outcome: 21:58 Discharge ordered by . cp 22:18 Discharged to home via wheelchair, tl4 22:18 Condition: stable 22:18 Discharge instructions given to patient, Instructed on discharge instructions, follow up and referral plans. Demonstrated understanding of instructions, follow-up care, 22:31 Patient left the ED. tl4 Signatures: Dispatcher [employer] EDMS Justus Neil PA PA cp Potter, Christina cp4 Logdahl, Toni, RN RN tl4 Corrections: (The following items were deleted from the chart) 21:34 20:44 General: Appears in no apparent distress. Behavior is calm, cooperative, tl4 tl4 21:34 20:44 Pain: Complains of pain in anterior aspect of left upper chest Pain does not tl4 radiate. Pain currently is 8 out of 10 on a pain scale. Pain began suddenly, 4 hours ago. tl4 21:34 20:44 Neuro: Level of Consciousness is awake, alert, obeys commands, Oriented to tl4 person, place, time, situation, tl4 21:34 20:44 Cardiovascular: Reports chest pain, Denies diaphoresis, nausea, palpitations, tl4 shortness of breath, syncope, Capillary refill < 3 seconds Patient's skin is warm and dry. tl4 21:34 20:44 Respiratory: Airway is patent Respiratory effort is even, unlabored, Respiratory tl4 pattern is regular, symmetrical, tl4 21:34 20:44 GI: No signs and/or symptoms were reported involving the gastrointestinal system. tl4 tl4 21:34 20:44 : No signs and/or symptoms were reported regarding the genitourinary system. [id number] 21:34 20:44 EENT: No signs and/or symptoms were reported regarding the EENT system. tl4 tl4 21:34 20:44 Derm: No signs and/or symptoms reported regarding the dermatologic system. tl4 tl4 21:34 20:44 Musculoskeletal: No signs and/or symptoms reported regarding the musculoskeletal tl4 system. tl4 21:36 19:43 Pain: Complains of pain in anterior aspect of left upper chest Pain does not tl4 radiate. Pain currently is 8 out of 10 on a pain scale. Pain began suddenly, 4 hours ago. tl4 21:38 19:43 Cardiovascular: Reports chest pain, Denies diaphoresis, nausea, palpitations, tl4 shortness of breath, syncope, Capillary refill < 3 seconds Patient's skin is warm and dry. tl4
[2024-01-23 23:01] VITALS: BP 158/96; TEMP 97.9; O2SAT 98
--- NOTE | 2024-01-24 12:37 | EKG ---
Test Date: 2024-01-23 Test Time: 19:22:58 Learning Operations Specialist: HANNAH MEASUREMENT RESULTS: Intervals: Rate: 91 [place]: QRSD: 94 QT: 410 QTc: 504 [place]: P: [place]: QRS: 22 T: -89 INTERPRETIVE STATEMENTS: Normal sinus rhythm T wave abnormality, consider inferior ischemia Prolonged QT Abnormal ECG Compared to ECG 01/23/2024 13:59:00 T-wave abnormality now present Sinus bradycardia no longer present ST (T wave) deviation no longer present Possible ischemia still present Electronically Signed On 01-24-24 12:35:58 CDT by Tommy Da Silva
== END 2024-01-23 22:31 | disposition home or self-care (01) ==
LOC: ER 19:09
DX: I11.9 Hypertensive heart disease without heart failure (principal); I10 Essential (primary) hypertension; I25.2 Old myocardial infarction; I48.91 Unspecified atrial fibrillation; Z21 Asymptomatic human immunodeficiency virus [HIV] infection status
CPT/HCPCS: 93005; 96374; 96375; 99285

== ENCOUNTER 2024-01-24 13:04 | Emergency (ER) | payer OTHER ==
--- NOTE | 2024-01-24 14:47 | RAD REPORT ---
EXAM DESCRIPTION: RAD - Chest Single View - 01/24/2024 2:23 pm CLINICAL HISTORY: COPD Chest pain. COMPARISON: <Comparisons> FINDINGS: Portable technique limits examination quality. Moderate pulmonary edema suspected. The heart is moderately enlarged. Bilateral shoulder arthroplasty . IMPRESSION: Moderate CHF pattern.
--- NOTE | 2024-01-24 15:10 | EDPHYS ---
Physician Documentation [facility] Name: Marjan Kolb Age: 69 yrs Sex: Female : 1955 Arrival Date: 01/24/2024 Time: 13:04 Bed IW9 Private MD: ED Physician Ramon Baker HPI: 01/23 14:17 This 69 yrs old Female presents to ER via EMS with complaints of Shortness Of Breath. rn 14:17 The patient has shortness of breath at rest, with light activity. Onset: The rn symptoms/episode began/occurred at an unknown time. The patient's shortness of breath is aggravated by coughing, is alleviated by rest, Morphine. Associated signs and symptoms: Pertinent positives: non-productive cough, Pertinent negatives: fever, hemoptysis. Severity of symptoms: At their worst the symptoms were mild in the emergency department the symptoms are unchanged. The patient has experienced similar episodes in the past. Patient seen here last night for chest pain and shortness of breath, discharged, returns for same shortness of breath. No fever or chills. No trauma. No hemoptysis. Patient requesting morphine for pain once again.. Historical: - Allergies: 13:22 Azithromycin; me1 13:22 Bactrim; me1 13:22 butorphanol; me1 13:22 Fentanyl; me1 13:22 Reglan; me1 13:22 Sulfa (Sulfonamide Antibiotics); me1 13:22 TRIMETHOPRIM; me1 - PMHx: 13:22 angina pectoris; Atrial fibrillation; Bipolar disorder; Chronic obstructive lung me1 disease; esophageal varices; Hepatitis; HIV positive; Hypercholesterolemia; Hypertensive disorder; Migraine; NSTEMI (Stented artery); - PSHx: 13:22 Stented artery; me1 - Immunization history:: Adult Immunizations up to date. - Infectious Disease History:: Denies. - Social history:: Smoking status: Patient/guardian denies using tobacco, but has a distant history of tobacco abuse. - Family history:: not pertinent. - Hospitalizations: : No recent hospitalization is reported. ROS: 14:17 Constitutional: Negative for fever, chills, and weight loss, Cardiovascular: Negative rn for lower extremity edema Respiratory: Positive for cough and shortness of breath Abdomen/GI: Negative for abdominal pain MS/Extremity: Negative for swelling or pain Exam: 14:18 Constitutional: This is a well developed, well nourished patient who is awake, alert, rn and in no acute distress. Cardiovascular: Regular rate and rhythm. No pulse deficits. Respiratory: Diminished breath sounds bilaterally. No increased work of breathing, no retractions or nasal flaring. Abdomen/GI: Soft, non-tender MS/ Extremity: No cyanosis, multiple ecchymosis bilateral upper extremities from venipuncture 16:35 ECG was reviewed by the Attending Physician. rn Vital Signs: 13:20 BP 140 / 84; Pulse 58; Resp 18; Temp 97.4; Pulse Ox 100% on 2 lpm NC; Weight 80.74 kg; me1 Height 5 ft. 9 in. ; Pain 0/10; 14:00 BP 144 / 71; Pulse 56; Resp 16; Pulse Ox 100% on R/A; me1 14:30 BP 155 / 86; Pulse 58; Resp 16; Temp 98.2; Pulse Ox 100% on R/A; me1 13:20 Body Mass Index 26.29 (80.74 kg, 175.26 cm) me1 13:20 Pain Scale: Adult me1 MDM: 13:17 Patient medically screened. rn 15:08 Differential diagnosis: Anemia Anxiety Reaction pneumonia, Pneumothorax pulmonary rn edema. Data reviewed: vital signs, nurses notes, radiologic studies, plain films, and as a result, I will discharge patient. Counseling: I had a detailed discussion with the patient and/or guardian regarding radiology results. ED course: Patient demanding pain medication, told her that we are going to get EKG and chest x-ray and further evaluate need for pain medication, patient got upset and walked out of emergency room states does not want to be here if she is not going to get pain medication. Understands risks of leaving prior to complete workup.. 01/23 13:42 Order name: XRAY Chest (1 view); Complete Time: 15:08 rn 01/23 13:42 Order name: EKG - Nurse/Tech; Complete Time: 14:30 rn EC:35 Rate is 55 beats/min. Rhythm is regular. QRS [place] is Normal. WI interval is normal. QRS rn interval is normal. QT interval is normal. No Q waves. T waves are Normal. No ST changes noted. Clinical impression: Sinus bradycardia. Interpreted by me. Reviewed by me. Administered Medications: No medications were administered Disposition Summary: 01/24/24 15:09 Discharge Ordered Notes: Location: Home rn Problem: an ongoing problem rn Symptoms: have improved rn Condition: Stable rn Diagnosis - Dyspnea, unspecified rn Followup: rn - With: Private Physician - When: As needed - Reason: Recheck today's complaints, Re-evaluation by your physician Discharge Instructions: - Discharge Summary Sheet rn - Shortness of Breath, Adult rn Forms: - Medication Reconciliation Form rn - Antibiotic tavern operator - Prescription Opioid Use rn - Patient Portal Instructions rn - Leadership Thank You Letter rn Signatures: Dispatcher [employer] [facility] Ramon Baker MD MD rn Eddleman, Michelle, RN RN me1 Corrections: (The following items were deleted from the chart) 13:42 13:42 Chest Single View+RAD.RAD.[email or web address] ordered. [facility]
--- NOTE | 2024-01-24 15:10 | ER ---
Nurse's Notes [facility] Name: Marjan Kolb Age: 69 yrs Sex: Female : 1955 Arrival Date: 01/24/2024 Time: 13:04 Bed IW9 Private MD: Diagnosis: Dyspnea, unspecified Presentation: 01/23 13:20 Chief complaint: EMS states: c/o SOB that started at 2 am. o2 at 2 lpm via nc. me1 Coronavirus screen: Vaccine status: Patient reports receiving the 2nd dose of the covid vaccine. Ebola Screen: No symptoms or risks identified at this time. Initial Sepsis Screen: Does the patient meet any 2 criteria? No. Patient's initial sepsis screen is negative. Does the patient have a suspected source of infection? No. Patient's initial sepsis screen is negative. Risk Assessment: Do you want to hurt yourself or someone else? Patient reports no desire to harm self or others. Onset of symptoms was January 24, 2024 at 02:00. 13:20 [place] Of [place] [facility] [place] Acuity: BLAYNE 4 me1 Triage Assessment: 13:22 General: Appears uncomfortable, ill, well groomed, well developed, well nourished, me1 Behavior is cooperative, appropriate for age, anxious, Reports SOB that started at 2 am. Pain: Denies pain. EENT: No signs and/or symptoms were reported regarding the EENT system. Neuro: Level of Consciousness is awake, alert, obeys commands, Oriented to person, place, time, situation, Appropriate for age. Cardiovascular: Patient's skin is warm and dry. Respiratory: Reports shortness of breath at rest on exertion Airway is patent Respiratory effort is even, unlabored, Respiratory pattern is regular, symmetrical, Onset: The symptoms/episode began/occurred this morning, the patient has mild shortness of breath. GI: No signs and/or symptoms were reported involving the gastrointestinal system. : No signs and/or symptoms were reported regarding the genitourinary system. Derm: Skin is intact, is healthy with good turgor, Skin is pink, warm \\T\\ dry. Musculoskeletal: No signs and/or symptoms reported regarding the musculoskeletal system. Historical: - Allergies: 13:22 Azithromycin; me1 13:22 Bactrim; me1 13:22 butorphanol; me1 13:22 Fentanyl; me1 13:22 Reglan; me1 13:22 Sulfa (Sulfonamide Antibiotics); me1 13:22 TRIMETHOPRIM; me1 - PMHx: 13:22 angina pectoris; Atrial fibrillation; Bipolar disorder; Chronic obstructive lung me1 disease; esophageal varices; Hepatitis; HIV positive; Hypercholesterolemia; Hypertensive disorder; Migraine; NSTEMI (Stented artery); - PSHx: 13:22 Stented artery; me1 - Immunization history:: Adult Immunizations up to date. - Infectious Disease History:: Denies. - Social history:: Smoking status: Patient/guardian denies using tobacco, but has a distant history of tobacco abuse. - Family history:: not pertinent. - Hospitalizations: : No recent hospitalization is reported. Screenin:24 [facility] ED Fall Risk Assessment (Adult) History of falling in the last 3 months, me1 including since admission No falls in past 3 months (0 pts) Confusion or Disorientation No (0 pts) Intoxicated or Sedated No (0 pts) Impaired Gait No (0 pts) Mobility Assist Device Used No (0 pt) Altered Elimination No (0 pt) Score/Fall Risk Level 0 - 2 = Low Risk Maintained a safe environment, Provided non-skid footwear, Hourly rounding (assess needs \\T\\ fall precautionary measures) done. Abuse screen: Denies threats or abuse. Nutritional screening: No deficits noted. Tuberculosis screening: No symptoms or risk factors identified. Assessment: 13:24 General: See triage assessement.. me1 13:24 Cardiovascular: Rhythm is sinus bradycardia. Respiratory: Airway is patent Respiratory me1 effort is even, unlabored, Respiratory pattern is regular, symmetrical, Breath sounds are clear bilaterally. 14:43 Reassessment: Patient appears in no apparent distress at this time. pt walking out of iw dept, states "I'm leaving, he doesn't wanna give me anything so I'm just gonna go". Vital Signs: 13:20 BP 140 / 84; Pulse 58; Resp 18; Temp 97.4; Pulse Ox 100% on 2 lpm NC; Weight 80.74 kg; me1 Height 5 ft. 9 in. ; Pain 0/10; 14:00 BP 144 / 71; Pulse 56; Resp 16; Pulse Ox 100% on R/A; me1 14:30 BP 155 / 86; Pulse 58; Resp 16; Temp 98.2; Pulse Ox 100% on R/A; me1 13:20 Body Mass Index 26.29 (80.74 kg, 175.26 cm) me1 13:20 Pain Scale: Adult me1 ED Course: 13:10 Patient arrived in ED. iw 13:17 Ramon Baker MD is Attending Physician. rn 13:19 Shira Solomon, ASHLEY is Primary Nurse. me1 13:22 Triage completed. me1 13:22 Arm band placed on Patient placed in an exam room. me1 13:24 Patient has correct armband on for positive identification. Bed in low position. Call me1 light in reach. Side rails up X2. Provided Education on: POC. Verbalized understanding.. Client placed on continuous cardiac and pulse oximetry monitoring. NIBP monitoring applied. Pulse ox on. NIBP on. 13:24 No provider procedures requiring assistance completed. me1 14:24 XRAY Chest (1 view) In Process Unspecified. EDMS 14:30 EKG done, by ED staff, reviewed by Ramon Baker MD. me1 14:39 Patient did not have IV access during this emergency room visit. me1 15:09 Ramno Baker MD is Referral Physician. rn 15:09 Referral Physician role handed off by Ramon Baker MD rn Administered Medications: No medications were administered Medication: 13:24 VIS not applicable for this client. me1 Outcome: 15:09 Discharge ordered by . rn 15:12 Patient left the ED. iw Signatures: Dispatcher [employer] EDMS Jacquelin Meier RN RN Ramon Baker MD MD rn Eddleman, Michelle, RN RN me1 Corrections: (The following items were deleted from the chart) 14:37 13:24 Respiratory: Airway is patent Respiratory effort is even, unlabored, Respiratory me1 pattern is regular, symmetrical, Breath sounds are clear bilaterally. me1 14:37 13:24 Cardiovascular: me1 me1
[2024-01-24 15:49] VITALS: O2SAT 100
[2024-01-24 15:52] VITALS: BP 155/86; TEMP 98.2
--- NOTE | 2024-01-25 12:09 | EKG ---
Test Date: 2024-01-24 Test Time: 14:27:42 Leadership Development Manager: MEASUREMENT RESULTS: Intervals: Rate: 55 TN: 196 QRSD: 84 QT: 504 QTc: 482 [place]: P: 52 TN: 196 QRS: 42 T: 49 INTERPRETIVE STATEMENTS: Sinus bradycardia Nonspecific ST and T wave abnormality Abnormal ECG Compared to ECG 01/23/2024 19:22:58 ST (T wave) deviation now present Sinus rhythm no longer present T-wave abnormality no longer present Possible ischemia no longer present Prolonged QT interval no longer present Electronically Signed On 01-25-24 12:07:03 CDT by Tommy Da Silva
== END 2024-01-24 15:12 | disposition home or self-care (01) ==
LOC: ER 13:04
DX: R06.00 Dyspnea, unspecified (principal); R05.9 Cough, unspecified; J44.9 Chronic obstructive pulmonary disease, unspecified; I10 Essential (primary) hypertension; Z21 Asymptomatic human immunodeficiency virus [HIV] infection status
CPT/HCPCS: 71045; 93005; 99283

== ENCOUNTER 2024-01-26 20:05 | Emergency (ER) | payer OTHER ==
[2024-01-26] MEDS ORDERED: DIAZEPAM 5 MG TABLET ONE (20:46)
[2024-01-26] MEDS ORDERED: cloNIDine HCL 0.1 MG TAB ONE (21:00)
[2024-01-26] MEDS ORDERED: ONDANSETRON 4 MG (ODT) TAB ONE (21:00)
--- NOTE | 2024-01-26 21:38 | ER ---
Nurse's Notes [facility] Name: Marjan Kolb Age: 69 yrs Sex: Female : 1955 Arrival Date: 01/26/2024 Time: 20:05 Bed 13 Private MD: Diagnosis: Chest pain, unspecified;Non Cardiac Chest pain Presentation: 01/25 20:10 Chief complaint: EMS states: she has complaining of chest pain since yesterday \T\ rg5 shortness of breath started this morning. Coronavirus screen: Vaccine status: Patient reports receiving the 2nd dose of the covid vaccine. Client denies travel out of the [place] in the last 14 days. 20:10 Method Of Arrival: EMS: [facility] rg5 20:10 Ebola Screen: Patient negative for fever greater than or equal to 101.5 degrees rg5 Fahrenheit, and additional compatible Ebola Virus Disease symptoms. Initial Sepsis Screen: Does the patient meet any 2 criteria? No. Patient's initial sepsis screen is negative. Does the patient have a suspected source of infection? No. Patient's initial sepsis screen is negative. Risk Assessment: Do you want to hurt yourself or someone else? Patient reports no desire to harm self or others. Onset of symptoms was January 26, 2024. Care prior to arrival: Medication(s) given: ASA, 81 mg, x 2, Nitroglycerin, 0.4 mg SL x 1, IV initiated. 20 GA, in the left foot. Care prior to arrival: 20:10 Acuity: BLAYNE 3 rg5 Triage Assessment: 20:35 General: Appears in no apparent distress. Behavior is calm, cooperative, appropriate rg5 for age. Pain: Complains of pain in chest Pain currently is 8 out of 10 on a pain scale. Quality of pain is described as shooting, Pain began 1 day ago. EENT: No deficits noted. Neuro: Level of Consciousness is awake, alert, obeys commands, Oriented to person, place, time. Cardiovascular: Reports chest pain, shortness of breath, Heart tones S1 S2 Patient's skin is warm and dry. Rhythm is sinus rhythm with unifocal PVCs. Respiratory: Reports shortness of breath at rest Airway is patent Trachea midline Respiratory effort is even, unlabored, Respiratory pattern is regular, symmetrical, Breath sounds are clear bilaterally. GI: Abdomen is round non-distended. : No signs and/or symptoms were reported regarding the genitourinary system. Derm: Skin is fragile, Skin is dry, Skin temperature is warm. Musculoskeletal: Range of motion: intact in all extremities. Historical: - Allergies: 20:35 Reglan; rg5 20:35 Fentanyl; rg5 20:35 TRIMETHOPRIM; rg5 20:35 Bactrim; rg5 20:35 Azithromycin; rg5 20:35 butorphanol; rg5 20:35 Sulfa (Sulfonamide Antibiotics); rg5 - PMHx: 20:35 angina pectoris; Atrial fibrillation; Bipolar disorder; Chronic obstructive lung rg5 disease; esophageal varices; HIV positive; Hepatitis; NSTEMI (Stented artery); Hypercholesterolemia; Hypertensive disorder; Migraine; - PSHx: 20:35 Stented artery; rg5 - Immunization history:: Adult Immunizations up to date, Client reports receiving the 2nd dose of the Covid vaccine. - Infectious Disease History:: Denies. - Social history:: Smoking status: Patient denies any tobacco usage or history of. - Family history:: not pertinent. Screenin:41 [facility] ED Fall Risk Assessment (Adult) History of falling in the last 3 months, rg5 including since admission No falls in past 3 months (0 pts) Confusion or Disorientation No (0 pts) Intoxicated or Sedated No (0 pts) Impaired Gait Yes (1 pt) Mobility Assist Device Used Yes (1 pt) Altered Elimination No (0 pt) Score/Fall Risk Level 0 - 2 = Low Risk. 20:41 Abuse screen: Denies threats or abuse. Nutritional screening: No deficits noted. rg5 Tuberculosis screening: No symptoms or risk factors identified. Assessment: 20:41 Pain: Complains of pain in chest Pain does not radiate. Pain currently is 08 out of 10 rg5 on a pain scale. Quality of pain is described as shooting, Pain began 1 day ago. Is intermittent, Alleviated by medications, rest. Vital Signs: 20:10 BP 163 / 90; Pulse 68; Resp 19; Temp 98.3(O); Pulse Ox 96% on 3 lpm NC; Weight 79.38 rg5 kg; Height 5 ft. 4 in. ; Pain 8/10; 20:35 BP 163 / 90; Pulse 65; Resp 19; Temp 98(O); Pulse Ox 97% on 3 lpm NC; Pain 8/10; rg5 21:30 BP 156 / 88; Pulse 64; Resp 19; Temp 98; rg5 20:10 Body Mass Index 30.04 (79.38 kg, 162.56 cm) rg5 20:10 Pain Scale: Adult rg5 20:35 Pain Scale: Adult rg5 [place] Coma Score: 20:52 Eye Response: spontaneous(4). Motor Response: obeys commands(6). Verbal Response: sp4 oriented(5). Total: 15. ED Course: 20:08 Patient arrived in ED. ss 20:12 Angelo Sanchez, ASHLEY is Primary Nurse. rg5 20:14 Dion Randhawa MD is Attending Physician. sp4 20:34 Triage completed. rg5 20:35 Arm band placed on right wrist. EKG completed in triage. Results shown to MD. rg5 20:41 Patient has correct armband on for positive identification. Bed in low position. Call rg5 light in reach. Side rails up X 1. Client placed on continuous cardiac and pulse oximetry monitoring. NIBP monitoring applied. classroom monitor on. Pulse ox on. NIBP on. 20:41 No provider procedures requiring assistance completed. Maintain EMS IV. Dressing rg5 intact. Site clean \T\ dry. Flushed with 10 mL NS. Oxygen administration via nasal cannula \T\ 3L/min. 21:37 Mike Lund MD is Referral Physician. sp4 21:39 IV discontinued, intact, bleeding controlled, No redness/swelling at site. Pressure vk dressing applied. 21:46 Provided Education on: post er care. rg5 21:46 IV discontinued, bleeding controlled, No redness/swelling at site. Pressure dressing rg5 applied. Administered Medications: 20:52 Drug: Diazepam PO 5 mg PO once Route: PO; rg5 21:30 Follow up: Response: No adverse reaction rg5 21:05 Drug: cloNIDine PO 0.1 mg PO once Route: PO; rg5 21:30 Follow up: Response: No adverse reaction rg5 21:05 Drug: Ondansetron PO 8 mg PO once Route: PO; rg5 21:30 Follow up: Response: No adverse reaction rg5 Medication: 20:41 VIS not applicable for this client. rg5 Outcome: 21:38 Discharge ordered by . sp4 21:45 Discharged to home ambulatory, rg5 21:45 Condition: stable 21:45 Discharge instructions given to patient, Instructed on discharge instructions, follow up and referral plans. Demonstrated understanding of instructions, follow-up care, 21:48 Patient left the ED. rg5 Signatures: Sandra Green, RN RN Dion Graff MD MD sp4 Harmony Ellis Rommel, RN RN rg5 Corrections: (The following items were deleted from the chart) 20:41 20:10 BP 127 / 90; Pulse 68bpm; Resp 19bpm; Pulse Ox 96% 3 lpm Nasal Cannula; Temp rg5 98.3F Oral; 79.38 kg; Height 5 ft. 4 in.; BMI: 30.0; Pain 8/10, Adult; rg5 21:48 21:00 BP 156 / 88; Pulse 64bpm; Resp 19bpm; Temp 98F; rg5 rg5
--- NOTE | 2024-01-26 21:38 | EDPHYS ---
Physician Documentation [facility] Name: Marjan Kolb Age: 69 yrs Sex: Female : 1955 Arrival Date: 01/26/2024 Time: 20:05 Bed 13 Private MD: ED Physician Dion Randhawa HPI: 01/25 20:47 This 69 yrs old Female presents to ER via EMS with complaints of Chest Pain. sp4 20:48 Patient is 69-year-old female, past medical history of hypertension, hyperlipidemia, sp4 GERD, CHF, COPD, HIV, bipolar disorder, coronary artery disease, recent admission for NSTEMI, left heart catheterization with PCI 01/11/2024 - Findings: 1. Left main, ostial 20% to 30%, then normal. 2. LAD, diffuse mild luminal irregularities with mid 30% disease. 3. Left circ, mild luminal irregularities. 4. RCA, proximal 20% disease and mid 70% disease, most likely the culprit for the non-STEMI. PCI done with Synergy 4.0 x 20 mm drug-eluting stent, distal mild luminal irregularities, RPDA/RPLV mild luminal irregularities. 5. LVEDP is 30 mmHg. Assessment: Non-STEMI, most likely secondary to significant mid RCA disease, PCI done with Synergy 4.0 x 20 mm drug-eluting stent. Plan: 1. Aspirin 81 mg daily for life. 2. Brilinta 180 X 1 was given in the laboratory chemical assistant, continue Brilinta 90 mg p.o. b.i.d. for 12 months. 3. Continue aggressive medical treatment for CAD.. Patient presents with EMS for complaint of intermittent chest pain associated with shortness of breath.. . 20:52 Most recent admission 01/15/2024 through 01/16/2024. Patient's medications include sp4 omeprazole 40 mg daily, Zoloft 100 mg daily, trazodone 50 mg bedtime, Verquvo 20 milligram p.o. daily, albuterol as needed, amlodipine 10 mg daily, buspirone 30 mg twice daily, hydralazine 50 mg p.o. 3 times daily, Dulera 2 puffs twice daily, Aldactone 25 twice daily, valsartan 160 daily, simethicone 125 p.o. 3 times daily, aspirin 81 p.o. daily, atorvastatin 40 mg p.o. bedtime, Brilinta 90 mg p.o. twice daily, aspirin 81 mg daily, furosemide 40 mg daily, metoprolol tartrate 100 mg p.o. twice daily.. Historical: - Allergies: 20:35 Reglan; rg5 20:35 Fentanyl; rg5 20:35 TRIMETHOPRIM; rg5 20:35 Bactrim; rg5 20:35 Azithromycin; rg5 20:35 butorphanol; rg5 20:35 Sulfa (Sulfonamide Antibiotics); rg5 - PMHx: 20:35 angina pectoris; Atrial fibrillation; Bipolar disorder; Chronic obstructive lung rg5 disease; esophageal varices; HIV positive; Hepatitis; NSTEMI (Stented artery); Hypercholesterolemia; Hypertensive disorder; Migraine; - PSHx: 20:35 Stented artery; rg5 - Immunization history:: Adult Immunizations up to date, Client reports receiving the 2nd dose of the Covid vaccine. - Infectious Disease History:: Denies. - Social history:: Smoking status: Patient denies any tobacco usage or history of. - Family history:: not pertinent. ROS: 20:52 Constitutional: Negative for fever, chills, and weight loss, for chest pain and sp4 shortness of breath 20:52 All other systems are negative, Exam: 20:52 Constitutional: This is a well developed, well nourished patient who is awake, alert, sp4 and in no acute distress. Head/Face: Normocephalic, atraumatic. Eyes: Pupils equal round and reactive to light, extra-ocular motions intact. Lids and lashes normal. Conjunctiva and sclera are not injected. Cornea within normal limits. Periorbital areas with no swelling, redness, or edema. ENT: Nares patent. No nasal discharge, no septal abnormalities noted. Tympanic membranes are normal and external auditory canals are clear. Oropharynx with no redness, swelling, or masses, exudates, or evidence of obstruction, uvula midline. Mucous membranes moist. Neck: Trachea midline, no thyromegaly or masses palpated, and no cervical lymphadenopathy. Supple, full range of motion without nuchal rigidity, or vertebral point tenderness. Chest/axilla: Normal chest wall appearance and motion. Nontender with no deformity. No lesions are appreciated. Cardiovascular: Regular rate and rhythm with a normal S1 and S2. No gallops, murmurs, or rubs. Normal PMI, no JVD. No pulse deficits. Respiratory: Lungs have equal breath sounds bilaterally, clear to auscultation and percussion. No rales, rhonchi or wheezes noted. No increased work of breathing, no retractions or nasal flaring. Abdomen/GI: Soft, with normal bowel sounds. No distension or tympany. No guarding or rebound. No evidence of tenderness throughout. Back: No spinal tenderness. No costovertebral tenderness. Skin: Warm, dry with normal turgor. Normal color with no rashes, no lesions, and no evidence of cellulitis. MS/ Extremity: Pulses equal, no cyanosis. Neurovascular intact. Full, normal range of motion. Neuro: Awake and alert, GCS 15, oriented to person, place, time, and situation. Cranial nerves II-XII grossly intact. Motor strength 5/5 in all extremities. Sensory grossly intact. Psych: Awake, alert, with orientation to person, place and time. Behavior, mood, and affect are within normal limits 20:52 ECG was reviewed by the Attending Physician. EKG 2018 sinus rhythm with premature sp4 supraventricular complexes rate 67 left ventricular hypertrophy , no ST elevation or depression Vital Signs: 20:10 BP 163 / 90; Pulse 68; Resp 19; Temp 98.3(O); Pulse Ox 96% on 3 lpm NC; Weight 79.38 rg5 kg; Height 5 ft. 4 in. ; Pain 8/10; 20:35 BP 163 / 90; Pulse 65; Resp 19; Temp 98(O); Pulse Ox 97% on 3 lpm NC; Pain 8/10; rg5 21:30 BP 156 / 88; Pulse 64; Resp 19; Temp 98; rg5 20:10 Body Mass Index 30.04 (79.38 kg, 162.56 cm) rg5 20:10 Pain Scale: Adult rg5 20:35 Pain Scale: Adult rg5 Crystal Coma Score: 20:52 Eye Response: spontaneous(4). Motor Response: obeys commands(6). Verbal Response: sp4 oriented(5). Total: 15. MDM: 20:16 Patient medically screened. sp4 20:52 Differential diagnosis: acute myocardial infarction, acute pericarditis, anxiety, chest sp4 wall pain, cholecystitis, Cholelithiasis. Data reviewed: vital signs, old medical records, lab test result(s), EKG. 21:43 HEART Score: History: Slightly Suspicious (0), ECG: Non specific repolarization sp4 disturbance / LBTB / PM (1), Age: > or = 65 years (2), Risk Factors: > or = 3 Risk factors for atherosclerotic disease (2), Troponin: < or = 1 x Normal Limit (0), Total Score = 5. The patient was not given aspirin in the Emergency Department. Administered by EMS. ED course: Troponin Negative today, patient stable for discharge home.. 21:44 ED course: Patient has history of almost daily visits to the ER for variety of sp4 complaints. We suspect also underlying opiate seeking behavior. Patient was strongly advised to come to the emergency room only when absolutely necessary to avoid unnecessary IV access or venipunctures also to avoid unnecessary exposure to communicable disease such as COVID. Was advised to follow-up with her community board member and follow-up with primary care physician instead of visiting emergency room multiple times for nonemergent complaints as this puts her health into unnecessary danger.. 01/25 20:20 Order name: Troponin High Sensitivity; Complete Time: 21:43 sp4 01/25 20:14 Order name: EKG; Complete Time: 20:15 sp4 01/25 20:14 Order name: EKG - Nurse/Tech; Complete Time: 20:23 sp4 Administered Medications: 20:52 Drug: Diazepam PO 5 mg PO once Route: PO; rg5 21:30 Follow up: Response: No adverse reaction rg5 21:05 Drug: cloNIDine PO 0.1 mg PO once Route: PO; rg5 21:30 Follow up: Response: No adverse reaction rg5 21:05 Drug: Ondansetron PO 8 mg PO once Route: PO; rg5 21:30 Follow up: Response: No adverse reaction rg5 Disposition Summary: 01/26/24 21:38 Discharge Ordered Notes: Location: Home sp4 Problem: new sp4 Symptoms: have improved sp4 Condition: Stable sp4 Diagnosis - Chest pain, unspecified sp4 - Non Cardiac Chest pain sp4 Followup: sp4 - With: Private Physician - When: 7 - 10 days - Reason: Recheck today's complaints Followup: sp4 - With: Mike Lund MD - When: 7 - 10 days - Reason: Recheck today's complaints Discharge Instructions: - Discharge Summary Sheet sp4 - Nonspecific Chest Pain, Adult, [id number] sp4 Forms: - Patient Portal Instructions sp4 Signatures: Dispatcher [employer] Dion Dutta MD MD sp4 Angelo Sanchez, RN RN rg5
[2024-01-26 21:55] VITALS: TEMP 98; O2SAT 97
[2024-01-26 21:56] VITALS: BP 156/88
--- NOTE | 2024-01-27 14:05 | EKG ---
Test Date: 2024-01-26 Test Time: 20:18:46 Production Posting Clerk: MALACHI MEASUREMENT RESULTS: Intervals: Rate: 67 ND: 208 QRSD: 96 QT: 452 QTc: 477 [place]: P: 79 ND: 208 QRS: 53 T: -81 INTERPRETIVE STATEMENTS: Sinus rhythm with premature supraventricular complexes Left ventricular hypertrophy with repolarization abnormality Abnormal ECG Compared to ECG 01/24/2024 14:27:42 Atrial premature complex(es) now present Left ventricular hypertrophy now present Early repolarization now present Sinus bradycardia no longer present ST (T wave) deviation no longer present Electronically Signed On 01-27-24 14:05:17 CDT by Mike Lund
== END 2024-01-26 21:48 | disposition home or self-care (01) ==
LOC: ER 20:05
DX: R07.89 Other chest pain (principal); I10 Essential (primary) hypertension; I25.2 Old myocardial infarction; Z21 Asymptomatic human immunodeficiency virus [HIV] infection status; J44.9 Chronic obstructive pulmonary disease, unspecified; I48.91 Unspecified atrial fibrillation
CPT/HCPCS: 93005; 36415; 84484; 99285; Q0162

== ENCOUNTER 2024-01-27 07:18 | Emergency (ER) | payer OTHER ==
[2024-01-27] MEDS ORDERED: NA CHLORIDE 0.9% 1,000 ML ONE (07:39)
[2024-01-27] MEDS ORDERED: MORPHINE 4 MG/ML SYR ONE (08:28)
[2024-01-27] MEDS ORDERED: ONDANSETRON 4 MG/2 ML VIAL ONE (08:28)
--- NOTE | 2024-01-27 08:28 | RAD REPORT ---
EXAM DESCRIPTION: RAD - Chest Single View - 01/27/2024 8:09 am CLINICAL HISTORY: DYSPNEA COMPARISON: Chest Single View dated 01/24/2024; Chest Single View dated 01/23/2024; Chest Single View da arpit 01/22/2024; Chest Single View dated 01/15/2024 FINDINGS: Lines: None. Lungs: Diffuse prominence of the pulmonary interstitium. Pleural: No significant pleural effusions or pneumothorax. Cardiac: Cardiomegaly. Mediastinum: Within normal limits. Bones: No acute fractures. Bilateral shoulder arthroplasties. Other: None IMPRESSION: Mild pulmonary edema.
[2024-01-27] MEDS ORDERED: DIPHENHYDRAMINE 50 MG/ML VIAL ONE (08:36)
[2024-01-27 08:40] LABS: Absolute Lymphocytes (CBC) 0.7 K/uL (0.7-4.9); Absolute Monocytes 0.8 K/uL (0.1-1.3); Absolute Neutrophil 6.7 K/uL (1.8-8.0); Basophils % 0.4 % (0-1.3); Eosinophils % 0.2 % (0-4.4); Hematocrit 31.5 % (36.0-45.0); Lymphocytes % 8.5 % (15.3-44.8); MCH 26.4 pg (27.0-35.0); MCHC 31.7 g/dL (32.0-36.0); MCV 83.4 fL (80-100); Monocytes % 9.8 % (3.3-12.3); Neutrophils % 81.1 % (41.7-73.7); Nucleated Red Blood Cells % 0.1 % (0-0); Platelets 160 thou/uL (152-406); RBC Red Blood Cell Count 3.77 M/uL (3.86-4.86); Red Cell Distribution Width 16.3 % (12.1-15.2)
[2024-01-27 08:52] LABS: AST/SGOT 12 U/L (15-37); Albumin/Globulin Ratio 0.7 (1.1-1.8); Alkaline Phosphatase 64 U/L (45-117); Anion Gap 9.3 mEq/L (5.0-15.0); BUN Blood Urea Nitrogen 20 mg/dL (7-18); Bicarbonate 25 mEq/L (21-32); Bilirubin Direct 0.2 mg/dL (0-0.2); Bilirubin Indirect, Calculated 0.4 mg/dL (0.2-0.8); Bilirubin Total 0.6 mg/dL (0.2-1.0); Globulin 4.1 g/dL (2.3-3.5); Glomerular Filtration Rate 56 ml/min (=/>90); Glucose Level 108 mg/dL (74-106); Magnesium 2.1 mg/dL (1.6-2.4); NT PRO-BNP 2627 pg/mL (<125); Potassium 3.3 mEq/L (3.5-5.1); Protein, Total 7.1 g/dL (6.4-8.2); Sodium Level 137 mEq/L (136-145); Troponin High Sensitivity 13.1 pg/mL (<58.9)
[2024-01-27 08:53] LABS: ALT/SGPT < 14 U/L (13-56)
[2024-01-27] MEDS ORDERED: FUROSEMIDE 40 MG/4 ML VIAL ONE (10:22)
--- NOTE | 2024-01-27 11:13 | ER ---
Nurse's Notes [facility] Name: Marjan Kolb Age: 69 yrs Sex: Female : 1955 Arrival Date: 01/27/2024 Time: 07:18 Bed 2 Private MD: Diagnosis: Chronic combined systolic (congestive) and diastolic (congestive) heart failure Presentation: 01/26 07:21 Chief complaint: EMS states: SOB that started this morning, spo2 was 93% for EMS on rs5 arrival, denies chest pain. Coronavirus screen: At this time, the client does not indicate any symptoms associated with coronavirus-19. Ebola Screen: No symptoms or risks identified at this time. Initial Sepsis Screen: Does the patient meet any 2 criteria? No. Patient's initial sepsis screen is negative. Does the patient have a suspected source of infection? No. Patient's initial sepsis screen is negative. Risk Assessment: Do you want to hurt yourself or someone else? Patient reports no desire to harm self or others. Onset of symptoms was January 27, 2024. 07:21 Method Of Arrival: EMS: [facility] rs5 07:21 Acuity: BLAYNE 3 rs5 Historical: - Allergies: 07:22 Azithromycin; rs5 07:22 Bactrim; rs5 07:22 butorphanol; rs5 07:22 Fentanyl; rs5 07:22 Reglan; rs5 07:22 Sulfa (Sulfonamide Antibiotics); rs5 07:22 TRIMETHOPRIM; rs5 - PMHx: 07:22 Atrial fibrillation; Chronic obstructive lung disease; esophageal varices; Bipolar rs5 disorder; Hepatitis; Migraine; Hypercholesterolemia; HIV positive; angina pectoris; Hypertensive disorder; NSTEMI (Stented artery); 08:00 Home O2 via NC; aa5 - PSHx: 07:22 Stented artery; rs5 - Immunization history:: Adult Immunizations up to date. - Infectious Disease History:: Denies. - Social history:: Smoking status: Patient/guardian denies using tobacco, but has a distant history of tobacco abuse. - Family history:: not pertinent. Screenin:23 [facility] ED Fall Risk Assessment (Adult) History of falling in the last 3 months, rs5 including since admission No falls in past 3 months (0 pts) Confusion or Disorientation No (0 pts) Intoxicated or Sedated No (0 pts) Impaired Gait Yes (1 pt) Mobility Assist Device Used Yes (1 pt) Altered Elimination No (0 pt) Score/Fall Risk Level 0 - 2 = Low Risk Oriented to surroundings, Maintained a safe environment. Abuse screen: Denies threats or abuse. Nutritional screening: No deficits noted. Tuberculosis screening: No symptoms or risk factors identified. Assessment: 07:23 Pain: Denies pain. Cardiovascular: Rhythm is. Respiratory: Airway is patent Respiratory rs5 effort is even, unlabored, Respiratory pattern is regular, symmetrical, 07:40 General: Appears comfortable, Behavior is calm, cooperative. Pain: Complains of pain in aa5 chest Pain does not radiate. Pain currently is 8 out of 10 on a pain scale. Quality of pain is described as pressure, Pain began 2-3 days ago. Is intermittent. Neuro: Level of Consciousness is awake, alert, obeys commands, Oriented to person, place, time, situation. Cardiovascular: Heart tones S1 S2 present Edema is absent. Rhythm is regular. Respiratory: Reports shortness of breath and cough Airway is patent Respiratory effort is even, unlabored, Respiratory pattern is regular, symmetrical, Breath sounds are clear bilaterally. GI: Abdomen is round non-distended, Bowel sounds present X 4 quads. Abd is soft and non tender X 4 quads. Reports nausea, Patient currently denies vomiting. : No signs and/or symptoms were reported regarding the genitourinary system. EENT: No signs and/or symptoms were reported regarding the EENT system. Derm: Skin is pink, warm \T\ dry. Musculoskeletal: Range of motion: intact in all extremities. 08:39 Reassessment: Patient is alert, oriented x 3, equal unlabored respirations, skin aa5 warm/dry/pink. 09:01 Reassessment: Patient and/or family updated on plan of care and expected duration. Pain rs5 level reassessed. Patient is alert, oriented x 3, equal unlabored respirations, skin warm/dry/pink. Patient states feeling better. Patient states symptoms have improved. 10:12 Reassessment: No changes from previously documented assessment. rs5 10:29 Reassessment: Patient is alert, oriented x 3, equal unlabored respirations, skin aa5 warm/dry/pink. Patient states feeling better. Patient states symptoms have improved. 11:30 Reassessment: Patient is alert, oriented x 3, equal unlabored respirations, skin aa5 warm/dry/pink. Vital Signs: 07:21 BP 167 / 71; Pulse 71; Resp 17; Temp 98.8; Pulse Ox 96% on 2 lpm NC; rs5 08:00 BP 146 / 98; Pulse 67; Resp 20 S; Pulse Ox 99% on 2 lpm NC; aa5 10:44 BP 129 / 88; Pulse 72; Resp 17; Pulse Ox 97% on 2 lpm NC; rs5 11:30 BP 129 / 93; Pulse 77; Resp 16 S; Temp 97.6(TE); Pulse Ox 98% on R/A; aa5 ED Course: 07:20 Patient arrived in ED. rs5 07:20 Justus Kolb MD is Attending Physician. thomas 07:22 Triage completed. rs5 07:23 Patient has correct armband on for positive identification. Placed in gown. Bed in low rs5 position. Call light in reach. Side rails up X2. 07:23 No provider procedures requiring assistance completed. rs5 07:57 EKG done, by ED staff, reviewed by Justus Kolb MD. hb 08:05 Lindsay Schulz, RN is Primary Nurse. aa5 08:10 XRAY Chest (1 view) In Process Unspecified. EDMS 08:15 Missed attempt(s): 24 gauge in right foot. Bleeding controlled, band aid applied, aa5 catheter tip intact. 08:22 Initial lab(s) drawn, by ri, sent to lab. Inserted saline lock: 24 gauge in left ,using aa5 aseptic technique. foot Blood collected. Flushed with 10 mL NS. 11:13 Mike Lund MD is Referral Physician. thomas 11:28 IV discontinued, intact, bleeding controlled, No redness/swelling at site. Pressure aa5 dressing applied. Administered Medications: 08:33 Drug: Ondansetron IVP 4 mg IVP once; over 2 minutes {Note: to left foot .} Route: IVP; aa5 Site: Other; 08:39 Follow up: Response: No adverse reaction aa5 08:34 Drug: NS 0.9% IV 1000 ml IV at 125 ml/hr continuous {Note: to left foot .} Route: IV; aa5 Rate: 125 ml/hr; Site: Other; 11:30 Follow up: IV Status: Order to discontinue infusion aa5 08:34 Drug: morphine IVP or IV 4 mg IVP once over 4 mins {Note: left foot .} Route: IVP; aa5 Infused Over: 4 mins; Site: Other; 08:39 Follow up: Response: Pt c/o itching to IV site, was notified. aa5 08:39 Drug: diphenhydrAMINE IVP 25 mg IVP once {Note: to left foot .} Route: IVP; Site: Other;aa5 09:00 Follow up: Response: No adverse reaction; Marked relief of symptoms aa5 10:29 Drug: Furosemide IVP 40 mg IVP once; give over 2 minutes {Note: to left foot .} Route: aa5 IVP; Site: Other; 11:28 Follow up: Response: No adverse reaction aa5 Medication: 08:41 VIS not applicable for this client. aa5 Outcome: 11:13 Discharge ordered by . thomas 11:30 Discharged to home via wheelchair, aa5 11:30 Condition: stable 11:30 Discharge instructions given to patient, Instructed on discharge instructions, follow up and referral plans. Demonstrated understanding of instructions, follow-up care, 11:31 Patient left the ED. sp Signatures: Dispatcher [employer] EDMS Justus Kolb MD MD cha Pinkerton, Shawna sp Calderon, Audri, RN RN aa5 Tata Rivera RN RN Roger Norton RN RN rs5 Corrections: (The following items were deleted from the chart) 08:49 08:00 BP 146 / 98; Pulse 67bpm; Resp 20bpm; Spontaneous; Pulse Ox 99% RA; aa5 aa5 11:46 11:30 Response: No adverse reaction aa5 aa5
--- NOTE | 2024-01-27 11:13 | EDPHYS ---
Physician Documentation [facility] Name: Marjan Kolb Age: 69 yrs Sex: Female : 1955 Arrival Date: 01/27/2024 Time: 07:18 Bed 2 Private MD: Justus Cervantes HPI: 01/26 11:06 This 69 yrs old Female presents to ER via EMS with complaints of Shortness Of thomas Breath. 11:06 The patient has shortness of breath with light activity. Onset: The symptoms/episode thomas began/occurred 1 day(s) ago. Duration: The symptoms are continuous, and are steadily getting worse. The patient's shortness of breath is aggravated by supine position. Associated signs and symptoms: Pertinent positives: non-productive cough. Severity of symptoms: At their worst the symptoms were mild in the emergency department the symptoms are unchanged. The patient has experienced similar episodes in the past, multiple times. Historical: - Allergies: 07:22 Azithromycin; rs5 07:22 Bactrim; rs5 07:22 butorphanol; rs5 07:22 Fentanyl; rs5 07:22 Reglan; rs5 07:22 Sulfa (Sulfonamide Antibiotics); rs5 07:22 TRIMETHOPRIM; rs5 - PMHx: 07:22 Atrial fibrillation; Chronic obstructive lung disease; esophageal varices; Bipolar rs5 disorder; Hepatitis; Migraine; Hypercholesterolemia; HIV positive; angina pectoris; Hypertensive disorder; NSTEMI (Stented artery); 08:00 Home O2 via NC; aa5 - PSHx: 07:22 Stented artery; rs5 - Immunization history:: Adult Immunizations up to date. - Infectious Disease History:: Denies. - Social history:: Smoking status: Patient/guardian denies using tobacco, but has a distant history of tobacco abuse. - Family history:: not pertinent. ROS: 11:06 Constitutional: Negative for fever, chills, and weight loss, Eyes: Negative for injury, thomas pain, redness, and discharge, ENT: Negative for injury, pain, and discharge, Neck: Negative for injury, pain, and swelling, Cardiovascular: Negative for chest pain, palpitations, and edema, Abdomen/GI: Negative for abdominal pain, nausea, vomiting, diarrhea, and constipation, Back: Negative for injury and pain, : Negative for injury, bleeding, discharge, and swelling, MS/Extremity: Negative for injury and deformity, Skin: Negative for injury, rash, and discoloration, Neuro: Negative for headache, weakness, numbness, tingling, and seizure, Psych: Negative for depression, anxiety, suicide ideation, homicidal ideation, and hallucinations, Allergy/Immunology: Negative for hives, rash, and allergies, Endocrine: Negative for neck swelling, polydipsia, polyuria, polyphagia, and marked weight changes, Hematologic/Lymphatic: Negative for swollen nodes, abnormal bleeding, and unusual bruising, 11:06 Respiratory: Positive for shortness of breath, Exam: 11:06 Constitutional: This is a well developed, well nourished patient who is awake, alert, thomas and in no acute distress. Head/Face: Normocephalic, atraumatic. Eyes: Pupils equal round and reactive to light, extra-ocular motions intact. Lids and lashes normal. Conjunctiva and sclera are non-icteric and not injected. Cornea within normal limits. Periorbital areas with no swelling, redness, or edema. ENT: Nares patent. No nasal discharge, no septal abnormalities noted. Tympanic membranes are normal and external auditory canals are clear. Oropharynx with no redness, swelling, or masses, exudates, or evidence of obstruction, uvula midline. Mucous membranes moist. Neck: Trachea midline, no thyromegaly or masses palpated, and no cervical lymphadenopathy. Supple, full range of motion without nuchal rigidity, or vertebral point tenderness. No Meningismus. Chest/axilla: Normal chest wall appearance and motion. Nontender with no deformity. No lesions are appreciated. Cardiovascular: Regular rate and rhythm with a normal S1 and S2. No gallops, murmurs, or rubs. Normal PMI, no JVD. No pulse deficits. Respiratory: Lungs have equal breath sounds bilaterally, clear to auscultation and percussion. No rales, rhonchi or wheezes noted. No increased work of breathing, no retractions or nasal flaring. Abdomen/GI: Soft, non-tender, with normal bowel sounds. No distension or tympany. No guarding or rebound. No evidence of tenderness throughout. Back: No spinal tenderness. No costovertebral tenderness. Full range of motion. Female : Normal external genitalia. Skin: Warm, dry with normal turgor. Normal color with no rashes, no lesions, and no evidence of cellulitis. MS/ Extremity: Pulses equal, no cyanosis. Neurovascular intact. Full, normal range of motion. Neuro: Awake and alert, GCS 15, oriented to person, place, time, and situation. Cranial nerves II-XII grossly intact. Motor strength 5/5 in all extremities. Sensory grossly intact. Cerebellar exam normal. Normal gait. Psych: Awake, alert, with orientation to person, place and time. Behavior, mood, and affect are within normal limits. 11:06 ECG was reviewed by the Attending Physician. Vital Signs: 07:21 BP 167 / 71; Pulse 71; Resp 17; Temp 98.8; Pulse Ox 96% on 2 lpm NC; rs5 08:00 BP 146 / 98; Pulse 67; Resp 20 S; Pulse Ox 99% on 2 lpm NC; aa5 10:44 BP 129 / 88; Pulse 72; Resp 17; Pulse Ox 97% on 2 lpm NC; rs5 11:30 BP 129 / 93; Pulse 77; Resp 16 S; Temp 97.6(TE); Pulse Ox 98% on R/A; aa5 MDM: 07:23 Patient medically screened. [facility] 11:09 Differential diagnosis: Anemia Anxiety Reaction asthma, Bronchitis CHF exacerbation, thomas Myocardial Infarction pulmonary edema, Pulmonary Embolism reactive airway disease, Sepsis Unstable Angina. Antibiotic administration: Not indicated. Immunization status: Pneumococcal vaccine: within last 5 years. Influenza vaccine: within last 5 years. Data reviewed: vital signs, nurses notes, lab test result(s), EKG, radiologic studies, plain films. Consideration of Admission/Observation Escalation of care including admission/observation considered. I considered the following discharge prescriptions or medication management in the emergency department Medications were administered in the Emergency Department. See MAR. Independent interpretation of the following test(s) in the Emergency Department EKG: See my EKG interpretation above. 01/26 07:31 Order name: Basic Metabolic Panel; Complete Time: 10:05 [facility] 01/26 07:31 Order name: CBC with Diff; Complete Time: 10: [facility] 01/26 07:31 Order name: LFT's; Complete Time: 10:05 [facility] 01/26 07:31 Order name: Magnesium; Complete Time: 10:05 [facility] 01/26 07:31 Order name: NT PRO-BNP; Complete Time: 10:05 [facility] 01/26 07:31 Order name: Troponin HS; Complete Time: 10:05 [facility] 01/26 07:31 Order name: XRAY Chest (1 view); Complete Time: 10:05 [facility] 01/26 07:31 Order name: Cardiac monitoring; Complete Time: 07:36 [facility] 01/26 07:31 Order name: EKG - Nurse/Tech; Complete Time: 07:59 [facility] 01/26 07:31 Order name: IV Saline Lock; Complete Time: 08: [facility] 01/26 07:31 Order name: Labs collected and sent; Complete Time: 08:25 [facility] 01/26 07:31 Order name: O2 Per Protocol; Complete Time: 07:36 [facility] 01/26 07:31 Order name: O2 Sat Monitoring; Complete Time: 07:36 [facility] EC:06 Rate is 67 beats/min. Rhythm is regular. QRS [place] is Normal. CT interval is normal. QRS thomas interval is normal. QT interval is normal. No Q waves. T waves are Normal. T waves are Inverted. ST Segment is depressed in leads I, II, III, aVL, aVF, V3, V4, V5, V6. Clinical impression: Abnormal EKG without significant change and No evidence of ischemia. Interpreted by me. Reviewed by me. Administered Medications: 08:33 Drug: Ondansetron IVP 4 mg IVP once; over 2 minutes {Note: to left foot .} Route: IVP; aa5 Site: Other; 08:39 Follow up: Response: No adverse reaction aa5 08:34 Drug: NS 0.9% IV 1000 ml IV at 125 ml/hr continuous {Note: to left foot .} Route: IV; aa5 Rate: 125 ml/hr; Site: Other; 11:30 Follow up: IV Status: Order to discontinue infusion aa5 08:34 Drug: morphine IVP or IV 4 mg IVP once over 4 mins {Note: left foot .} Route: IVP; aa5 Infused Over: 4 mins; Site: Other; 08:39 Follow up: Response: Pt c/o itching to IV site, MD was notified. aa5 08:39 Drug: diphenhydrAMINE IVP 25 mg IVP once {Note: to left foot .} Route: IVP; Site: Other;aa5 09:00 Follow up: Response: No adverse reaction; Marked relief of symptoms aa5 10:29 Drug: Furosemide IVP 40 mg IVP once; give over 2 minutes {Note: to left foot .} Route: aa5 IVP; Site: Other; 11:28 Follow up: Response: No adverse reaction aa5 Disposition Summary: 01/27/24 11:13 Discharge Ordered Notes: Location: Home thomas Problem: new thomas Symptoms: have improved thomas Condition: Stable thomas Diagnosis - Chronic combined systolic (congestive) and diastolic (congestive) heart failure thomas Followup: thomas - With: Private Physician - When: 2 - 3 days - Reason: Recheck today's complaints, Continuance of care, Re-evaluation by your physician Followup: thomas - With: Mike Lund MD - When: 2 - 3 days - Reason: Recheck today's complaints, Re-evaluation by your physician Discharge Instructions: - Discharge Summary Sheet thomas - Atrial Fibrillation thomas - Heart Failure, Diagnosis thomas - Shortness of Breath, Adult thomas - Shortness of Breath, Adult, [id number] thomas - Aspirin and Your Heart thomas - Heart Failure, Diagnosis, [id number] thomas - Atrial Fibrillation, [id number]-dj-[id number] thomas Forms: - Medication Reconciliation Form thomas - Antibiotic Education thomas - Prescription Opioid Use thomas - Patient Portal Instructions thomas - Leadership Thank You Letter thomas Signatures: Dispatcher [employer] Justus Long MD MD cha Calderon, Audri, RN RN aa5 Roger Norton RN RN rs5
[2024-01-27 11:56] VITALS: TEMP 98.8
[2024-01-27 11:58] VITALS: BP 129/88; O2SAT 97
--- NOTE | 2024-02-06 13:09 | EKG ---
Test Date: 2024-01-28 Test Time: 08:25:32 Microbiology Supervisor: YODIT MEASUREMENT RESULTS: Intervals: Rate: 120 VT: QRSD: 82 QT: 346 QTc: 489 Sterling: P: VT: QRS: 37 T: 231 INTERPRETIVE STATEMENTS: Atrial fibrillation with rapid ventricular response with premature ventricular or aberrantly conducted complexes ST & T wave abnormality, consider inferior ischemia or digitalis effect Abnormal ECG Compared to ECG 01/27/2024 14:53:54 Ventricular premature complex(es) now present Sinus rhythm no longer present ST (T wave) deviation still present Possible ischemia still present Electronically Signed On 02-06-24 12:53:16 CDT by Mike Lund
== END 2024-01-27 11:31 | disposition home or self-care (01) ==
LOC: ER 07:18
DX: I50.42 Chronic combined systolic (congestive) and diastolic (congestive) heart failure (principal); R05.9 Cough, unspecified; J44.9 Chronic obstructive pulmonary disease, unspecified; I48.91 Unspecified atrial fibrillation; I10 Essential (primary) hypertension; Z99.81 Dependence on supplemental oxygen; Z21 Asymptomatic human immunodeficiency virus [HIV] infection status
CPT/HCPCS: 96361; 85025; 80048; 36415; 83735; 80076; 84484; 83880; 71045; 96375; 96374; 99284; J1200; J1940; J2405; J7030; 93005

== ENCOUNTER 2024-01-31 02:06 | Inpatient (IN) | payer OTHER ==
[2024-01-31] MEDS ORDERED: CEFTRIAXONE 1000 MG/VIAL ONE (02:55)
[2024-01-31] MEDS ORDERED: METHYLPREDNISOLONE 125 MG INJ ONE (02:55)
[2024-01-31] MEDS ORDERED: ACETAMINOPHEN 500 MG TAB ONE (02:55)
[2024-01-31] MEDS ORDERED: DOXYCYCLINE HYCLATE 100MG INJ ONE (02:56)
[2024-01-31] MEDS ORDERED: NA CHLORIDE 0.9% 100 ML ONE (02:56)
[2024-01-31 03:08] LABS: AST/SGOT 13 U/L (15-37); Albumin 2.8 g/dL (3.4-5.0); Albumin/Globulin Ratio 0.6 (1.1-1.8); Alkaline Phosphatase 64 U/L (45-117); Anion Gap 9.6 mEq/L (5.0-15.0); BUN Blood Urea Nitrogen 28 mg/dL (7-18); Bicarbonate 24 mEq/L (21-32); Bilirubin Total 0.6 mg/dL (0.2-1.0); Globulin 4.5 g/dL (2.3-3.5); Glomerular Filtration Rate 51 ml/min (=/>90); Glucose Level 120 mg/dL (74-106); Potassium 3.6 mEq/L (3.5-5.1); Protein, Total 7.3 g/dL (6.4-8.2); Sodium Level 137 mEq/L (136-145)
[2024-01-31 03:13] LABS: ALT/SGPT < 14 U/L (13-56)
[2024-01-31 03:24] LABS: Absolute Lymphocytes (CBC) 0.6 K/uL (0.7-4.9); Absolute Neutrophil 9.3 K/uL (1.8-8.0); Basophils % 0.1 % (0-1.3); Eosinophils % 0.1 % (0-4.4); Hematocrit 30.5 % (36.0-45.0); Hemoglobin 9.8 g/dL (12.0-15.0); Lymphocytes % 5.9 % (15.3-44.8); MCH 26.6 pg (27.0-35.0); MCHC 32.2 g/dL (32.0-36.0); MCV 82.8 fL (80-100); MPV 7.4 fL (7.6-11.3); Monocytes % 9.2 % (3.3-12.3); Neutrophils % 84.7 % (41.7-73.7); Platelets 220 thou/uL (152-406); RBC Red Blood Cell Count 3.68 M/uL (3.86-4.86); Red Cell Distribution Width 15.9 % (12.1-15.2)
[2024-01-31 03:32] LABS: PT Prothrombin Time 14.9 SECONDS (9.4-12.5); PTT, Activated Partial Thromb 33.6 SECONDS (24.3-36.9); Protime INR 1.34
--- NOTE | 2024-01-31 03:34 | ER ---
Nurse's Notes [facility] Name: Marjan Kolb Age: 69 yrs Sex: Female : 1955 Arrival Date: 01/31/2024 Time: 02:06 Bed 7 Private MD: Diagnosis: Sepsis, unspecified organism;Unspecified bacterial pneumonia Presentation: 01/30 02:21 Chief complaint: Patient states: PT C/O OF SOB THAT STARTED AT APPROX 2330 AND LEFT br2 CHEST WALL PAIN. CP DOESN'T RADIATES AND IS CONSTANT SHARP. PT RECEIVED ALBUTEROL AND ATROVENT PER EMS PRIOR TO ARRIVAL. Coronavirus screen: Client denies travel out of the [place] in the last 14 days. Ebola Screen: Patient denies travel to an Ebola-affected area in the 21 days before illness onset. Initial Sepsis Screen: Does the patient meet any 2 criteria? RR > 20 per min. Temp <36.0*C (96.8*F)) or > 38.3*C (100.9*F). HR > 90 bpm. Yes Does the patient have a suspected source of infection? No. Patient's initial sepsis screen is negative. Risk Assessment: Do you want to hurt yourself or someone else? Patient reports no desire to harm self or others. Onset of symptoms was January 30, 2024 at 23:30. 02:21 Method Of Arrival: EMS: [facility] br2 02:21 Acuity: BLAYNE 2 br2 Triage Assessment: 04:04 General: Appears uncomfortable. General: Behavior is cooperative, quiet. Pain: br2 Complains of pain in chest. Historical: - Allergies: 02:30 Bactrim; br2 02:30 butorphanol; br2 02:30 Fentanyl; br2 02:30 Reglan; br2 02:30 Sulfa (Sulfonamide Antibiotics); br2 02:30 TRIMETHOPRIM; br2 02:30 Azithromycin; br2 - Home Meds: 02:43 metoprolol tartrate 100 mg Oral tablet 2 times per day [Active]; hydralazine 100 mg jb4 Oral tablet 3 times per day [Active]; Isentress oral [Active]; Descovy oral [Active]; Lasix Oral [Active]; Nexium Oral [Active]; Clonazepam Oral [Active]; - PMHx: 02:43 Angina pectoris; A-fib; Bipolar disorder; COPD; Esophageal varices; Hepatitis; HIV; jb4 Home O2 via NC; Hypercholesterolemia; Hypertensive disorder; Migraine; NSTEMI; - Immunization history:: Adult Immunizations up to date. - Infectious Disease History:: Denies. - Social history:: Smoking status: Patient/guardian denies using tobacco. Screenin:30 [facility] ED Fall Risk Assessment (Adult) History of falling in the last 3 months, jb4 including since admission No falls in past 3 months (0 pts) Confusion or Disorientation No (0 pts) Intoxicated or Sedated No (0 pts) Impaired Gait No (0 pts) Mobility Assist Device Used No (0 pt) Altered Elimination No (0 pt) Score/Fall Risk Level 0 - 2 = Low Risk Oriented to surroundings, Maintained a safe environment. Abuse screen: Denies threats or abuse. Nutritional screening: No deficits noted. Tuberculosis screening: No symptoms or risk factors identified. Assessment: 02:30 General: Appears in no apparent distress. uncomfortable, Behavior is calm, cooperative, jb4 agitated. Pain: Complains of pain in chest Pain does not radiate. Pain currently is 8 out of 10 on a pain scale. Neuro: Level of Consciousness is awake, alert, obeys commands, Oriented to person, place, time, situation. Cardiovascular: Patient's skin is warm and dry. Respiratory: Airway is patent Respiratory effort is labored, Respiratory pattern is symmetrical, tachypnea Breath sounds are diminished bilaterally. GI: No signs and/or symptoms were reported involving the gastrointestinal system. : No signs and/or symptoms were reported regarding the genitourinary system. EENT: No signs and/or symptoms were reported regarding the EENT system. Derm: Skin is intact, Skin is pink, warm \T\ dry. Musculoskeletal: Circulation, motion, and sensation intact. Range of motion: intact in all extremities. 03:30 Reassessment: Patient appears in no apparent distress at this time. Patient and/or jb4 family updated on plan of care and expected duration. Pain level reassessed. Patient is alert, oriented x 3, equal unlabored respirations, skin warm/dry/pink. 04:30 Reassessment: Patient appears in no apparent distress at this time. Patient and/or jb4 family updated on plan of care and expected duration. Pain level reassessed. Patient is alert, oriented x 3, equal unlabored respirations, skin warm/dry/pink. 05:30 Reassessment: Patient appears in no apparent distress at this time. Patient and/or jb4 family updated on plan of care and expected duration. Pain level reassessed. Patient is alert, oriented x 3, equal unlabored respirations, skin warm/dry/pink. Vital Signs: 02:21 BP 154 / 119; Pulse 107; Resp 21; Temp 101; Pulse Ox 99% on R/A; Weight 81.19 kg; br2 Height 5 ft. 4 in. ; 02:35 BP 154 / 119; Pulse 107; Resp 21; Temp 101; Pulse Ox 99% ; Weight 81.19 kg; Height 5 br2 ft. 4 in. ; 03:30 BP 161 / 109; Pulse 112; Resp 19; Pulse Ox 97% on NC; FiO2 3 %; jb4 04:30 BP 100 / 89; Pulse 95; Resp 24; Temp 98.7; Pulse Ox 96% on 2 lpm NC; br2 05:10 BP 125 / 81; Pulse 95; Resp 14; Temp 97.1(O); Pulse Ox 97% on 3 lpm NC; jb4 02:35 Body Mass Index 30.72 (81.19 kg, 162.56 cm) br2 ED Course: 02:11 Patient arrived in ED. kmf 02:15 Yayo August MD is Attending Physician. ec2 02:25 Triage completed. br2 02:50 Missed attempt(s): 22 gauge Bleeding controlled, band aid applied, catheter tip intact. bm8 02:51 Chest Single View XRAY In Process Unspecified. EDMS 02:55 Missed attempt(s): 22 gauge in right foot. Bleeding controlled, band aid applied, bm8 catheter tip intact. 03:00 Missed attempt(s): 22 gauge in left foot. Bleeding controlled, band aid applied, bm8 catheter tip intact. 03:18 Inserted saline lock: 20 gauge in right antecubital area, using aseptic technique. bm8 ,using aseptic technique. ultrasound guided Blood collected. Flushed with 10 mL NS. 03:30 No provider procedures requiring assistance completed. Patient did not have IV access jb4 during this emergency room visit. 03:30 Patient has correct armband on for positive identification. Bed in low position. Call jb4 light in reach. Side rails up X 1. Provided Education on: . 03:33 Savage Barraza MD is Hospitalizing Provider. ec2 04:59 Mode Bhatt, RN is Primary Nurse. jb4 Administered Medications: 02:50 Not Given (Pt allergicc): [id number] mg IVPB once over 1 hrs; (mix in 250 mL NS) jb4 03:29 Drug: MethylPrednisoLONE IVP 125 mg IVP once Route: IVP; Site: right antecubital; jb4 05:03 Follow up: Response: No adverse reaction; Marked relief of symptoms jb4 03:29 Drug: Rocephin IV 1 grams IV at calculated rate once; Given slow IV push per pharmacy jb4 instructions Route: IV; Rate: calculated rate; Site: right antecubital; 03:34 Follow up: Response: No adverse reaction; IV Status: Infusion continued jb4 03:29 Drug: vibramycin - Doxycycline IVPB 100 mg IVPB at 100 ml/hr once; (mix in 100 ml NS) jb4 Route: IVPB; Rate: 100 ml/hr; Site: right antecubital; 04:31 Follow up: Response: No adverse reaction; IV Status: Completed infusion; IV Intake: br2 100ml 03:30 Drug: Acetaminophen PO 1000 mg PO once Route: PO; jb4 Medication: 03:30 VIS not applicable for this client. jb4 Intake: 04:31 IV: 100ml; Total: 100ml. br2 Outcome: 03:33 Decision to Hospitalize by Provider. ec2 06:00 Admitted to Tele accompanied by tech, via wheelchair, room 414, with chart, jb4 06:00 Condition: stable 06:00 Discharge instructions given to patient, Instructed on the need for admit, Demonstrated understanding of instructions, 06:00 Patient left the ED. jb4 Signatures: Dispatcher [employer] EDMode Seymour, RN RN jb4 Yayo August MD MD 2 Whitney Tan Riaz Lafleur RN RN bm8 Catherine Zaman RN RN br2 Corrections: (The following items were deleted from the chart) 02:32 02:25 Allergies: Bactrim [Inactive]; br2 br2 02:32 02:25 Allergies: butorphanol [Inactive]; br2 br2 02:32 02:25 Allergies: Fentanyl [Inactive]; br2 br2 02:32 02:25 Allergies: Reglan [Inactive]; br2 br2 02:32 02:25 Allergies: Sulfa (Sulfonamide Antibiotics) [Inactive]; br2 br2 02:32 02:25 Allergies: TRIMETHOPRIM [Inactive]; br2 br2 02:32 02:25 Allergies: Azithromycin [Inactive]; br2 br2 02:32 02:25 PMHx: Hypercholesterolemia; br2 br2 02:32 02:25 PMHx: Hypertensive disorder; br2 br2 02:32 02:25 PMHx: NSTEMI (Stented artery); br2 br2 02:32 02:25 PMHx: Hepatitis; br2 br2 02:32 02:25 PMHx: HIV positive; br2 br2 02:32 02:25 PMHx: esophageal varices; br2 br2 02:32 02:25 PMHx: Chronic obstructive lung disease; br2 br2 02:32 02:25 PMHx: Migraine; br2 br2 02:32 02:25 PMHx: Bipolar disorder; br2 br2 02:32 02:25 PMHx: Atrial fibrillation; br2 br2 02:32 02:25 PMHx: angina pectoris; br2 br2 02:32 02:25 PMHx: Home O2 via NC; br2 br2 02:50 02:25 Home Meds: metoprolol tartrate 100 mg Oral tablet 2 times per day [Inactive]; br2 jb4 02:50 02:25 Home Meds: hydralazine 100 mg Oral tablet 3 times per day [Inactive]; br2 jb4 02:50 02:25 Home Meds: Clonazepam Oral [Inactive]; br2 jb4 02:50 02:25 Home Meds: Lasix Oral [Inactive]; br2 jb4 02:50 02:25 Home Meds: Descovy oral [Inactive]; br2 jb4 02:50 02:25 Home Meds: Nexium Oral [Inactive]; br2 jb4 02:50 02:25 Home Meds: Isentress oral [Inactive]; br2 jb4
--- NOTE | 2024-01-31 03:34 | EDPHYS ---
Physician Documentation [facility] Name: Marjan Kolb Age: 69 yrs Sex: Female : 1955 Arrival Date: 01/31/2024 Time: 02:06 Bed 7 Private MD: ED Physician Yayo August HPI: 01/30 02:16 This 69 yrs old Female presents to ER via Unassigned with complaints of sob. ec2 02:16 Patient arrives today for shortness of breath. Recent admission. Patient reports cough ec2 and congestion and difficulty breathing. Patient reports otherwise feeling unwell. Historical: - Allergies: 02:30 Bactrim; br2 02:30 butorphanol; br2 02:30 Fentanyl; br2 02:30 Reglan; br2 02:30 Sulfa (Sulfonamide Antibiotics); br2 02:30 TRIMETHOPRIM; br2 02:30 Azithromycin; br2 - Home Meds: 02:43 metoprolol tartrate 100 mg Oral tablet 2 times per day [Active]; hydralazine 100 mg jb4 Oral tablet 3 times per day [Active]; Isentress oral [Active]; Descovy oral [Active]; Lasix Oral [Active]; Nexium Oral [Active]; Clonazepam Oral [Active]; - PMHx: 02:43 Angina pectoris; A-fib; Bipolar disorder; COPD; Esophageal varices; Hepatitis; HIV; jb4 Home O2 via NC; Hypercholesterolemia; Hypertensive disorder; Migraine; NSTEMI; - Immunization history:: Adult Immunizations up to date. - Infectious Disease History:: Denies. - Social history:: Smoking status: Patient/guardian denies using tobacco. ROS: 02:16 Constitutional: as per hpi ec2 Exam: 02:16 Constitutional: GEN: NAD Head: atraumatic Eyes: EOMI Ears: External ears are ec2 normal. CV: Tachycardia LUNGS: Scattered wheezes ABD: non-distended SKIN: no evidence of rashes MSK: no evidence of trauma Vital Signs: 02:21 BP 154 / 119; Pulse 107; Resp 21; Temp 101; Pulse Ox 99% on R/A; Weight 81.19 kg; br2 Height 5 ft. 4 in. ; 02:35 BP 154 / 119; Pulse 107; Resp 21; Temp 101; Pulse Ox 99% ; Weight 81.19 kg; Height 5 br2 ft. 4 in. ; 03:30 BP 161 / 109; Pulse 112; Resp 19; Pulse Ox 97% on NC; FiO2 3 %; jb4 04:30 BP 100 / 89; Pulse 95; Resp 24; Temp 98.7; Pulse Ox 96% on 2 lpm NC; br2 05:10 BP 125 / 81; Pulse 95; Resp 14; Temp 97.1(O); Pulse Ox 97% on 3 lpm NC; jb4 02:35 Body Mass Index 30.72 (81.19 kg, 162.56 cm) br2 MDM: 02:16 Data reviewed: vital signs. ED course: Patient arrives today for shortness of breath. ec2 Examination remarkable for tachycardic individual was febrile. Will obtain lab work, EKG, chest x-ray, empirically treat with ceftriaxone and azithromycin. Will also give steroids. History of COPD. Differential includes COPD exacerbation, pneumonia, anemia, electrolyte disturbances. 02:17 Patient medically screened. ec2 03:29 ED course: CBC shows slight anemia. Metabolic profile shows renal dysfunction, no anion ec2 gap noted. Lactate within normal ranges. . 03:32 ED course: Chest x-ray shows small left-sided pleural effusion along with a ec2 retrocardiac opacity, possible infiltrate versus atelectasis. I favor infiltrate given the patient's respiratory symptoms along with fever. Will admit for sepsis secondary to pneumonia. Discussed case with hospitalist, pending admission . 01/30 02:15 Order name: Blood Culture Adult (2) ec2 01/30 02:15 Order name: CBC with Diff; Complete Time: 03:29 ec2 01/30 02:15 Order name: CMP; Complete Time: 03:29 ec2 01/30 02:15 Order name: Lactate w/ 2H reflex if indic.; Complete Time: 03:29 ec2 01/30 02:15 Order name: Protime (+inr); Complete Time: 03:33 ec2 01/30 02:15 Order name: Ptt, Activated; Complete Time: 03:33 ec2 01/30 03:52 Order name: Glucose, Ancillary Testing EDMS 01/30 04:08 Order name: Thyroid Stimulating Hormone EDMS 01/30 04:08 Order name: CBC with Automated Diff EDMS 01/30 04:08 Order name: CBC with Automated Diff EDMS 01/30 04:08 Order name: Comprehensive Metabolic Panel EDMS 01/30 04:08 Order name: Comprehensive Metabolic Panel EDMS 01/30 04:08 Order name: Magnesium EDMS 01/30 04:08 Order name: Magnesium EDMS 01/30 04:08 Order name: Magnesium EDMS 01/30 04:08 Order name: Magnesium EDMS 01/30 04:08 Order name: Troponin High Sensitivity EDMS 01/30 04:08 Order name: Troponin High Sensitivity EDMS 01/30 04:08 Order name: Troponin High Sensitivity EDMS 01/30 04:09 Order name: Urinalysis W/Microscopic EDMS 01/30 02:15 Order name: Chest Single View XRAY ec2 01/30 02:15 Order name: EKG; Complete Time: 02:16 ec2 01/30 02:15 Order name: Accucheck; Complete Time: 03:30 ec2 01/30 02:15 Order name: Cardiac monitoring; Complete Time: 02:24 ec2 01/30 02:15 Order name: EKG - Nurse/Tech; Complete Time: 02:24 ec2 01/30 02:15 Order name: IV Saline Lock - Large Bore; Complete Time: 03:29 ec2 01/30 02:15 Order name: Labs collected and sent; Complete Time: 02:24 ec2 01/30 02:15 Order name: O2 Per Protocol; Complete Time: 02:24 ec2 01/30 02:15 Order name: O2 Sat Monitoring; Complete Time: 02:24 ec2 01/30 02:15 Order name: Vital Signs; Complete Time: 02:24 ec2 Administered Medications: 02:50 Not Given (Pt allergicc): [id number] mg IVPB once over 1 hrs; (mix in 250 mL NS) jb4 03:29 Drug: MethylPrednisoLONE IVP 125 mg IVP once Route: IVP; Site: right antecubital; jb4 05:03 Follow up: Response: No adverse reaction; Marked relief of symptoms jb4 03:29 Drug: Rocephin IV 1 grams IV at calculated rate once; Given slow IV push per pharmacy jb4 instructions Route: IV; Rate: calculated rate; Site: right antecubital; 03:34 Follow up: Response: No adverse reaction; IV Status: Infusion continued jb4 03:29 Drug: vibramycin - Doxycycline IVPB 100 mg IVPB at 100 ml/hr once; (mix in 100 ml NS) jb4 Route: IVPB; Rate: 100 ml/hr; Site: right antecubital; 04:31 Follow up: Response: No adverse reaction; IV Status: Completed infusion; IV Intake: br2 100ml 03:30 Drug: Acetaminophen PO 1000 mg PO once Route: PO; jb4 Disposition Summary: 01/31/24 03:33 Hospitalization Ordered Notes: Hospitalization Status: Inpatient Admission ec2 Provider: Savage Barraza ec2 [facility] ec2 Condition: Stable ec2 Problem: an acute exacerbation ec2 Symptoms: have improved ec2 Bed/Room Type: Standard ec2 Room Assignment: [facility](01/31/24 04:15) Diagnosis - Sepsis, unspecified organism ec2 - Unspecified bacterial pneumonia ec2 Forms: - Medication Reconciliation Form ec2 - SBAR form ec2 - Leadership Thank You Letter ec2 Critical care time excluding procedures: 03:33 Critical care time: Bedside Care: 30 minutes, Consultation: 5 minutes. Total time: 35 ec2 minutes Signatures: Dispatcher [employer] EDSandra Barreto RN RN ss Mode Bhatt RN RN jb4 Yayo August MD MD 2 Whitney Tan [facility] Catherine Zaman RN RN br2 Corrections: (The following items were deleted from the chart) 02: 02:25 Allergies: Bactrim [Inactive]; br2 02:25 Allergies: butorphanol [Inactive]; br2 02:25 Allergies: Fentanyl [Inactive]; br2 02:25 Allergies: Reglan [Inactive]; br2 : 02:25 Allergies: Sulfa (Sulfonamide Antibiotics) [Inactive]; br2 02:25 Allergies: TRIMETHOPRIM [Inactive]; br2 02:25 Allergies: Azithromycin [Inactive]; br2 02:25 PMHx: Hypercholesterolemia; br2 02:25 PMHx: Hypertensive disorder; br2 02:25 PMHx: NSTEMI (Stented artery); br2 br2 02:32 02:25 PMHx: Hepatitis; br2 br2 02:32 02:25 PMHx: HIV positive; br2 br2 02:32 02:25 PMHx: esophageal varices; br2 br2 02:32 02:25 PMHx: Chronic obstructive lung disease; br2 br2 02:32 02:25 PMHx: Migraine; br2 br2 02:32 02:25 PMHx: Bipolar disorder; br2 br2 02:32 02:25 PMHx: Atrial fibrillation; br2 br2 02:32 02:25 PMHx: angina pectoris; br2 br2 02:32 02:25 PMHx: Home O2 via NC; br2 br2 02:50 02:25 Home Meds: metoprolol tartrate 100 mg Oral tablet 2 times per day [Inactive]; br2 jb4 02:50 02:25 Home Meds: hydralazine 100 mg Oral tablet 3 times per day [Inactive]; br2 jb4 02:50 02:25 Home Meds: Clonazepam Oral [Inactive]; br2 jb4 02:50 02:25 Home Meds: Lasix Oral [Inactive]; br2 jb4 02:50 02:25 Home Meds: Descovy oral [Inactive]; br2 jb4 02:50 02:25 Home Meds: Nexium Oral [Inactive]; br2 jb4 02:50 02:25 Home Meds: Isentress oral [Inactive]; br2 jb4 03:32 02:16 ED course: Patient arrives today for shortness of breath. Examination remarkable ec2 for tachycardic individual was febrile. Will obtain lab work, EKG, chest x-ray, empirically treat with ceftriaxone and azithromycin. Will also give steroids. History of COPD.. ec2 04:14 03:33 ec2 kmf 04:15 04:14 404 kmf ss
[2024-01-31] MEDS ORDERED: MORPHINE 2 MG/ML SYR IV PRN ×2 (04:00→06:56)
[2024-01-31] MEDS ORDERED: ONDANSETRON 4 MG/2 ML VIAL IV PRN (04:00)
[2024-01-31] MEDS ORDERED: ACETAMINOPHEN 500 MG TAB PO PRN (04:00)
--- NOTE | 2024-01-31 04:00 | P.HP ---
Certification for Inpatient With expected LOS: >2 Midnights Patient will require the following post-hospital care: None Practitioner: I am a practitioner with admitting privileges, knowledge of patient current condition, hospital course, and medical plan of care. Services: Services provided to patient in accordance with Admission requirements found in Title 42 Section 412.3 of the Code of Federal Regulations Patient History Date of Service: 01/31/24 Reason for admission: Shortness of breath History of Present Illness: 69-year-old female with past medical history of hypertension, A-fib status post Watchman device, HIV, HLD, COPD on home O2, CAD status post previous non-STEMI; recent hospitalization from 4 days ago after presenting with dizziness, wrist pain as well as COPD exacerbation. Discharged home yesterday. Patient presented a few hours later because of worsening shortness of breath as well as wheezing. She states she started having fever, shortness of breath as well as dysuria prior to discharge yesterday. She states symptoms worsen upon getting home. She received 2 doses of DuoNebs by EMS on arrival in the ED she was mildly tachycardic at 107 but satting at 96 on 2 L nasal cannula O2. Her temp was elevated at 101. Laboratory workup shows WBC of 11, hemoglobin of 9.8, mild neutrophilia, BMP was unremarkable except for creatinine of 1.1. Lactic acid was normal at 1.6. Chest x-ray shows left pleural effusion similar to previous 1 4 days ago, suspected atelectasis versus infiltrate in the retrocardiac area. Patient has been admitted for presumed left retrocardiac pneumonia with sepsis as well as COPD exacerbation Allergies fentanyl Allergy (Severe, Verified 07/20/22 08:30) Hives adhesive tape Allergy (Verified 07/20/22 08:30) Rash butorphanol tartrate [From Stadol] Allergy (Verified 07/20/22 08:30) confusion metoclopramide HCl [From Reglan] Allergy (Verified 07/20/22 08:30) Shortness of breath sulfamethoxazole [From Bactrim] Allergy (Verified 07/20/22 08:30) Hives/Rash trimethoprim [From Bactrim] Allergy (Verified 07/20/22 08:30) Hives/Rash acetaminophen [From [place]] Adverse Reaction (Verified 01/15/24 03:19) Nausea/Vomiting hydrocodone [From [place]] Adverse Reaction (Verified 01/15/24 03:19) Nausea/Vomiting Bactrim DS Allergy (Intermediate, Uncoded 07/20/22 08:30) Nausea/Vomiting Home Medications: Omeprazole 40 mg PO DAILY 08/10/23 Sertraline [Zoloft*] 100 mg PO DAILY 08/10/23 Trazodone [Desyrel*] 50 mg PO BEDTIME 08/10/23 Vericiguat [Verquvo] 20 mg PO DAILY 08/10/23 Albuterol Inhaler [Ventolin Inhaler*] 2 puff IH Q6H PRN 30 Days #1 inh 08/11/23 Amlodipine [Norvasc*] 10 mg PO DAILY 30 Days #30 tab 08/11/23 Buspirone HCl 30 mg PO BID 08/11/23 Hydralazine [Apresoline*] 50 mg PO TID PRN 30 Days #30 tab 08/11/23 Mometasone/Formoterol [Dulera 200 Mcg/5 Mcg Inhaler] 2 puff IH BID 30 Days #1 inhaler 08/11/23 Spironolactone [Aldactone*] 25 mg PO BID 30 Days #60 tab 08/11/23 Valsartan [Diovan*] 160 mg PO DAILY tab 08/11/23 Acidophilus/Bulgaricus [Lactinex Packet] 1 each PO DAILY 5 Days #5 packet 10/15/23 Ciprofloxacin HCl [Cipro 500 MG Tablet] 500 mg PO BID #20 tab 01/07/24 Simethicone 125 mg PO TID PRN #30 cap 01/07/24 Aspirin Chewable [Aspirin Chewable*] 81 mg PO DAILY #30 tab.chew 01/12/24 Atorvastatin Calcium [Lipitor] 40 mg PO BEDTIME #30 tab 01/12/24 Ticagrelor [Brilinta*] 90 mg PO BID #60 tab 01/12/24 Aspirin Chewable [Aspirin Chewable*] 81 mg PO DAILY tab.chew 01/16/24 Furosemide [Lasix*] 40 mg PO DAILY #30 tab 01/16/24 Metoprolol Tartrate [Lopressor*] 100 mg PO BID #60 tab 01/16/24 clonazePAM [Clonazepam] 0.5 mg PO TIDP PRN 01/29/24 Ipratropium/Albuterol Sulfate [Iprat-Albut 0.5-3(2.5) mg/3 ml] 3 ml IH TID PRN # 90 amp 01/30/24 Isosorbide Mononitrate [Isosorbide Mononitrate ER] 30 mg PO DAILY #30 tab 01/30/24 Nebulizer [Mc 300 Nebulizer W-Mouthpiece] 1 each MC TID PRN #1 ea 01/30/24 - Past Medical/Surgical History Diabetic: No -: HIV- viral load currently undectable -: CAD -: Bipolar disorder -: Hypertension -: COPD on home O2 @ 2L -: Tobacco abuse -: former Alcohol abuse -: Anemia of chronic disease -: Hyperlipidemia -: GERD with hiatal hernia -: Atrial fibrillation-paroxysmal S/P Watchman procedure -: Chronic diastolic CHF -: Appendectomy Watchman procedure, -: Cholecystectomy -: left and right shoulder rotator cuff repair -: Right foot repair -: Right shoulder replacement -: right wrist -: hiatal hernia repair february 2021 -: right wrist Psychosocial/ Personal History: She lives at home. She is . Family coming to visit from [place] tomorrow - Family History Father -: Heart disease, Hypertension, Lung disease, GI disease, Stroke, Cancer, Liver disease, Kidney disease Notes: Colon cancer Mother -: Hypertension, Lung disease, GI disease, Blood disorders, Other (see notes) Notes: Epilepsy, chronic pain, leukemia - Social History Smoking Status: Former smoker Smoking therapy provided: No Alcohol use: No CD- Drugs: No Caffeine use: No Review of Systems General: Fever, Weakness Respiratory: Cough, Shortness of Breath Physical Examination - Physical Exam General: Alert, In no apparent distress, Oriented x3, Cooperative HEENT: Atraumatic, Normocephalic, PERRLA Neck: Supple, 2+ carotid pulse no bruit, JVD not distended Respiratory: Diminished, Expiratory wheezes Cardiovascular: No edema, Normal pulses, Regular rate/rhythm, Normal S1 S2 Gastrointestinal: Normal bowel sounds, Soft and benign, Non-distended, No ascites, No tenderness Musculoskeletal: No clubbing, No swelling Integumentary: No rashes, No breakdown Neurological: Normal speech, Normal strength at 5/5 x4 extr, Normal tone, Sensation intact, Cranial nerves 3-12 intact - Studies Laboratory Data (last 24 hrs) 01/31/24 01/31/2401/30/24 03:11 03:11 02:30 WBC 11.00 H Hgb 9.8 L Hct 30.5 L Plt Count 220 D PT 14.9 H INR 1.34 APTT 33.6 Sodium 137 Potassium 3.6 BUN 28 H Creatinine 1.16 H Glucose 120 H Total Bilirubin 0.6 AST 13 L ALT < 14 Alkaline Phosphatase 64 Assessment and Plan - Problems (Diagnosis) (1) COPD exacerbation Current Visit: No Status: Acute (2) Pneumococcal pneumonia Current Visit: No Status: Acute (3) SOB (shortness of breath) Current Visit: No Status: Acute - Plan Impression Left pneumonialikely hospital-acquired given recent hospitalization Acute sepsispossibly pneumonia versus UTI COPD exacerbation Hypertension History of A-fib History of CAD/hepatitis/HLDstable Plan Will admit patient to inpatient Will start empirical antibiotics with cefepime Obtain blood culture x 2 Obtain UA to rule out UTI Obtain sputum culture if feasible DuoNebs every 6 for COPD exacerbation Will add low-dose prednisone Continue O2 Resume home meds Serial set of cardiac enzyme Follow WBC trend Full code Lovenox for DVT prophylaxis Discharge Plan: Home - Advance Directives Does patient have a Living Will: No Does patient have a Durable POA for Healthcare: No - Code Status/Comfort Care Code Status: Full Code Time Spent Managing Pts Care (In Minutes): 65
[2024-01-31] MEDS ORDERED: guaiFENesin 100 MG/5 ML UCUP PO PRN (04:03)
[2024-01-31] MEDS ORDERED: BENZONATATE 100 MG CAP PO PRN (04:03)
[2024-01-31] MEDS: PANTOPRAZOLE 40MG TABLET PO SCH (06:22)
[2024-01-31 06:51] VITALS: BMI 30.7
[2024-01-31] MEDS: ENOXAPARIN 40 MG/0.4 ML SQ SCH (08:17)
[2024-01-31] MEDS: TICAGRELOR 90 MG TABLET PO SCH (08:17)
[2024-01-31] MEDS: predniSONE 20 MG TAB PO SCH (08:17)
[2024-01-31] MEDS: ASPIRIN 81 MG CHEWABLE TABLET PO SCH (08:17)
[2024-01-31] MEDS: AMLODIPINE 10 MG TAB PO SCH (08:17)
[2024-01-31] MEDS: METOPROLOL TAR 50 MG TAB PO SCH (08:17)
[2024-01-31] MEDS: ISOSORBIDE MONO SR 30 MG TAB PO SCH (08:17)
[2024-01-31] MEDS: SERTRALINE HCL 100 MG TAB PO SCH (08:18)
[2024-01-31] MEDS: CEFEPIME 1 GM in NA CHLORIDE 0.9% 100 ML IV SCH (08:18)
[2024-01-31] MEDS: ALBUTEROL 2.5 MG/3 ML NEB SOL NEB SCH (08:23)
[2024-01-31] MEDS: IPRATROPIUM BROM 0.5MG/2.5ML NEB SCH (08:23)
[2024-01-31] MEDS: clonazePAM 0.5 MG TAB PO ONE ×2 (08:40→20:52)
[2024-01-31] MEDS: ARFORMOTEROL TARTRATE 15 MCG/2 ML VIAL.NEB NEB SCH (09:00)
--- NOTE | 2024-01-31 09:23 | RAD REPORT ---
EXAM DESCRIPTION: Patrick Saldana And Tanner (2 Views)01/31/2024 9:04 am CLINICAL HISTORY: Cough COMPARISON: January 31, 2024 FINDINGS: The lungs appear clear of acute infiltrate. The heart is moderately enlarged. Small left pleural effusion present
[2024-01-31] MEDS: FUROSEMIDE 40 MG TABLET PO ONE (11:03)
[2024-01-31 11:14] LABS: Magnesium 2.1 mg/dL (1.6-2.4); Thyroid Stimulating Hormone 0.388 uIU/mL (0.358-3.740)
--- NOTE | 2024-01-31 12:00 | P.CNS ---
Date of Consult: 01/31/24 Reason for Consult: COPD exacerbation and hematuria Chief Complaint: Shortness of breath History of Present Illness: Patient is 69 years of age with a history of COPD admitted with history of increasing dyspnea and cough he recently had an NV apparently had a stent put in patient is compliant with her Dulera denies any fever or chills with the possibility of pneumonia compliant with medication at home has any cough or sputum in addition has been complaining of some hematuria Allergies fentanyl Allergy (Severe, Verified 07/20/22 08:30) Hives adhesive tape Allergy (Verified 07/20/22 08:30) Rash butorphanol tartrate [From Stadol] Allergy (Verified 07/20/22 08:30) confusion metoclopramide HCl [From Reglan] Allergy (Verified 07/20/22 08:30) Shortness of breath sulfamethoxazole [From Bactrim] Allergy (Verified 07/20/22 08:30) Hives/Rash trimethoprim [From Bactrim] Allergy (Verified 07/20/22 08:30) Hives/Rash acetaminophen [From [place]] Adverse Reaction (Verified 01/15/24 03:19) Nausea/Vomiting hydrocodone [From [place]] Adverse Reaction (Verified 01/15/24 03:19) Nausea/Vomiting Bactrim DS Allergy (Intermediate, Uncoded 07/20/22 08:30) Nausea/Vomiting Home Medications: Omeprazole 40 mg PO DAILY 08/10/23 Sertraline [Zoloft*] 100 mg PO DAILY 08/10/23 Trazodone [Desyrel*] 50 mg PO BEDTIME 08/10/23 Vericiguat [Verquvo] 20 mg PO DAILY 08/10/23 Albuterol Inhaler [Ventolin Inhaler*] 2 puff IH Q6H PRN 30 Days #1 inh 08/11/23 Amlodipine [Norvasc*] 10 mg PO DAILY 30 Days #30 tab 08/11/23 Buspirone HCl 30 mg PO BID 08/11/23 Hydralazine [Apresoline*] 50 mg PO TID PRN 30 Days #30 tab 08/11/23 Mometasone/Formoterol [Dulera 200 Mcg/5 Mcg Inhaler] 2 puff IH BID 30 Days #1 inhaler 08/11/23 Spironolactone [Aldactone*] 25 mg PO BID 30 Days #60 tab 08/11/23 Valsartan [Diovan*] 160 mg PO DAILY tab 08/11/23 Acidophilus/Bulgaricus [Lactinex Packet] 1 each PO DAILY 5 Days #5 packet 10/15/23 Ciprofloxacin HCl [Cipro 500 MG Tablet] 500 mg PO BID #20 tab 01/07/24 Simethicone 125 mg PO TID PRN #30 cap 01/07/24 Aspirin Chewable [Aspirin Chewable*] 81 mg PO DAILY #30 tab.chew 01/12/24 Atorvastatin Calcium [Lipitor] 40 mg PO BEDTIME #30 tab 01/12/24 Ticagrelor [Brilinta*] 90 mg PO BID #60 tab 01/12/24 Aspirin Chewable [Aspirin Chewable*] 81 mg PO DAILY tab.chew 01/16/24 Furosemide [Lasix*] 40 mg PO DAILY #30 tab 01/16/24 Metoprolol Tartrate [Lopressor*] 100 mg PO BID #60 tab 01/16/24 clonazePAM [Clonazepam] 0.5 mg PO TIDP PRN 01/29/24 Ipratropium/Albuterol Sulfate [Iprat-Albut 0.5-3(2.5) mg/3 ml] 3 ml IH TID PRN #90 amp 01/30/24 Isosorbide Mononitrate [Isosorbide Mononitrate ER] 30 mg PO DAILY #30 tab 01/30/24 Nebulizer [Mc 300 Nebulizer W-Mouthpiece] 1 each MC TID PRN #1 ea 01/30/24 - Past Medical/Surgical History Diabetic: No -: HIV- viral load currently undectable -: CAD -: Bipolar disorder -: Hypertension -: COPD on home O2 @ 2L -: Tobacco abuse -: former Alcohol abuse -: Anemia of chronic disease -: Hyperlipidemia -: GERD with hiatal hernia -: Atrial fibrillation-paroxysmal S/P Watchman procedure -: Chronic diastolic CHF -: Appendectomy Watchman procedure, -: Cholecystectomy -: left and right shoulder rotator cuff repair -: Right foot repair -: Right shoulder replacement -: right wrist -: hiatal hernia repair february 2021 -: right wrist Psychosocial/ Personal History: She lives at home. She is . Family coming to visit from [place] tomorrow - Family History Father Medical History: Heart disease, Hypertension, Lung disease, GI disease, Stroke, Cancer, Liver disease, Kidney disease Notes: Colon cancer Mother Medical History: Hypertension, Lung disease, GI disease, Blood disorders, Other (see notes) Notes: Epilepsy, chronic pain, leukemia - Social History Smoking Status: Unknown if ever smoked Alcohol use: No CD- Drugs: No Caffeine use: No Place of Residence: Home Review of Systems 10-point ROS is otherwise unremarkable General: Weakness Respiratory: Cough, Shortness of Breath Physical Examination Temp Pulse Resp BP Pulse Ox 97.2 F 90 15 129/82 99 01/31/24 08:00 01/31/24 08:00 01/31/24 08:00 01/31/24 08:00 01/31/24 08:00 General: Alert, Oriented x3 Neck: Supple Respiratory: Expiratory wheezes Cardiovascular: No edema, Regular rate/rhythm, Normal S1 S2 Gastrointestinal: Normal bowel sounds, Soft and benign Laboratory Data (last 24 hrs) 01/31/24 01/31/24 01/31/24 03:11 03:11 02:30 WBC 11.00 H Hgb 9.8 L Hct 30.5 L Plt Count 220 D PT 14.9 H INR 1.34 APTT 33.6 Sodium 137 Potassium 3.6 BUN 28 H Creatinine 1.16 H Glucose 120 H Total Bilirubin 0.6 AST 13 L ALT < 14 Alkaline Phosphatase 64 - Problems (1) COPD exacerbation Current Visit: Yes Status: Acute Plan: Patient is 69 years of age admitted with a day history of cough congestion shortness of breath recently had an NV had stents put in x-ray shows cardiomegaly no evidence of pneumonia labs reviewed creatinine is mildly elevated troponins are negative patient had a normal echo since stent placed does have pneumonia on chest x-ray currently stable for discharge on low-dose prednisone 10 mg twice a day for a week and some Augmentin for 4 to 5 days follow-up with me in 2 weeks
--- NOTE | 2024-01-31 13:40 | P.PN ---
Date of Service: 01/31/24 Subjective: Feels as if her breathing has improved with the nebulizer treatments, steroids Had fever on admission Still feeling very weak/tired Also reports hematuria ROS: 10 point ROS as noted above, otherwise negative Physical exam GEN: Alert, oriented, NAD HEENT: Normal conjunctiva, sclera anicteric CV: Regular rate and rhythm, no edema Pulm: Nonlabored respirations on 02-has home 02, mild expiratory wheezing ABD: Soft, nontender, nondistended MSK: No joint tenderness Integumentary: No rashes Neuro: Normal speech, normal affect Vitals reviewed Problem List Sepsis secondary to pneumonia-HCAP vs community acquired COPD with exacerbation Acute on chronic respiratory failure secondary to COPD-on home 02 History of atrial fibrillation S/P watchman procedure Hx of CAD with recent stent placement Weakness/falls Reported hematuria Hx of HIV, hepatitis, HLD Plan Sepsis secondary to pneumonia-HCAP vs community acquired COPD with exacerbation Acute on chronic respiratory failure secondary to COPD-on home 02 Seen by pulmonology who recommends switching antibiotics to oralAugmentin Improving with nebulizer treatments, steroids Has home oxygen Also started on Brovana Anticipate discharge in the next 1 to 2 days History of atrial fibrillation S/P watchman procedure Hx of CAD with recent stent placement Continue aspirin, Brilinta No active chest pain Weakness/falls PT consultation Patient has previously declined placement/SNF/inpatient rehab Will discuss further after evaluation with PT likely tomorrow Reported hematuria Reports she has been having hematuria the last 2 to 4 days Has not voided today Will collect urine specimen to evaluate Hx of HIV, hepatitis, HLD Continue home meds VTE:Lovenox Code:Full Dispo:1-2 days Time Spent Managing Pts Care (In Minutes): 35
--- NOTE | 2024-01-31 14:14 | RAD REPORT ---
EXAM DESCRIPTION: RAD - Chest Single View - 01/31/2024 2:49 am CLINICAL HISTORY: COUGH COMPARISON: None TECHNIQUE: Single AP view of the chest. FINDINGS: Lung volumes adequate. Cardiac silhouette is enlarged, unchanged. No pneumothorax. Small left pleural effusion. Patchy retrocardiac opacities. No acute bony finding. Bilateral shoulder arthroplasty changes. IMPRESSION: 1. Small left pleural effusion. 2. Patchy retrocardiac opacities, could represent atelectasis versus developing infiltrates. 3. Unchanged enlarged cardiac silhouette. Electronically signed by: Bridgett Cruz MD 01/31/2024 03:24 AM CDT RP Z9 Due to temporary technical issues with the PACS/Fluency reporting system, reports are being signed by the in house radiologists without review as a courtesy to insure prompt reporting. The interpreting radiologist is fully responsible for the content of the report.
[2024-01-31 16:10] LABS: Specific Gravity 1.013 (1.005-1.030); Sqamous Epithelial <5 /HPF (None Seen); Urine Bacteria None Seen /HPF (<20); Urine Bilirubin NEGATIVE (Negative); Urine Blood Negative (Negative); Urine Clarity Clear (Clear); Urine Color Light-Yellow (Yellow); Urine Culture Reflex Order NOT NEEDED; Urine Glucose NEGATIVE (Negative); Urine Ketones NEGATIVE (Negative); Urine Micro Reflex YN NO BILL MICROSCOPIC; Urine Mucus Slight /HPF (None Seen); Urine Nitrite NEGATIVE (Negative); Urine Protein NEGATIVE (Negative); Urine RBC <5 /HPF (None Seen); Urine Urobilinogen Normal (Normal); Urine WBC None Seen /HPF (<5)
--- NOTE | 2024-01-31 16:53 | EKG ---
Test Date: 2024-01-31 Test Time: 02:12:14 Shipping And Receiving Material Handler: PATRICIA MEASUREMENT RESULTS: Intervals: Rate: 110 RI: QRSD: 86 QT: 304 QTc: 411 [place]: P: RI: QRS: 29 T: 205 INTERPRETIVE STATEMENTS: Atrial fibrillation with rapid ventricular response ST & T wave abnormality, consider inferolateral ischemia Abnormal ECG Compared to ECG 01/27/2024 14:53:54 Sinus rhythm no longer present ST (T wave) deviation still present Possible ischemia still present Electronically Signed On 01-31-24 16:52:25 CDT by Mike Lund
[2024-01-31] MEDS: PNEUMOCOCCAL VACCINE 0.5 ML IMVAC ONE (17:02)
[2024-01-31] MEDS: AMOX/K CLAV 500 MG TAB PO SCH (20:16)
[2024-01-31] MEDS: ATORVASTATIN 40 MG TAB PO SCH (20:17)
[2024-01-31] MEDS: predniSONE 10 MG TAB PO SCH (20:17)
[2024-01-31] MEDS: ALBUTEROL 2.5 MG/3 ML NEB SOL NEB PRN (20:28)
[2024-01-31] MEDS ORDERED: clonazePAM 0.5 MG TAB PO SCH (21:00)
[2024-02-01] MEDS: HYDRALAZINE HCL 20 MG/ML VIAL IV PRN (05:40)
[2024-02-01 07:37] LABS: Absolute Lymphocytes (CBC) 0.4 K/uL (0.7-4.9); Absolute Monocytes 0.4 K/uL (0.1-1.3); Absolute Neutrophil 10.1 K/uL (1.8-8.0); Basophils % 0.1 % (0-1.3); Hematocrit 28.2 % (36.0-45.0); Hemoglobin 9.2 g/dL (12.0-15.0); Lymphocytes % 3.5 % (15.3-44.8); MCH 26.8 pg (27.0-35.0); MCHC 32.7 g/dL (32.0-36.0); MCV 82.1 fL (80-100); MPV 7.4 fL (7.6-11.3); Monocytes % 4.1 % (3.3-12.3); Neutrophils % 92.3 % (41.7-73.7); Nucleated Red Blood Cells % 0.1 % (0-0); Platelets 237 thou/uL (152-406); RBC Red Blood Cell Count 3.43 M/uL (3.86-4.86); Red Cell Distribution Width 16.1 % (12.1-15.2)
[2024-02-01 07:56] LABS: AST/SGOT 11 U/L (15-37); Albumin 2.6 g/dL (3.4-5.0); Albumin/Globulin Ratio 0.6 (1.1-1.8); Alkaline Phosphatase 60 U/L (45-117); Anion Gap 11.1 mEq/L (5.0-15.0); BUN Blood Urea Nitrogen 35 mg/dL (7-18); Bicarbonate 22 mEq/L (21-32); Bilirubin Total 0.3 mg/dL (0.2-1.0); Globulin 4.4 g/dL (2.3-3.5); Glomerular Filtration Rate 47 ml/min (=/>90); Glucose Level 198 mg/dL (74-106); Magnesium 2.1 mg/dL (1.6-2.4); Potassium 3.1 mEq/L (3.5-5.1); Sodium Level 137 mEq/L (136-145); Troponin High Sensitivity 11.4 pg/mL (<58.9)
[2024-02-01 07:57] LABS: ALT/SGPT < 14 U/L (13-56)
[2024-02-01 09:41] VITALS: BP 152/85
[2024-02-01 09:49] LABS: Blood Morphology Comment NOT SEEN (NOT SEEN); Platelet Estimate ADEQ; White Blood Cell Scan OK (OK)
[2024-02-01 11:08] VITALS: TEMP 96.8
[2024-02-01] MEDS: POTASSIUM CL SA 10 MEQ TAB PO ONE (11:59)
[2024-02-01 16:12] VITALS: O2SAT 97
--- NOTE | 2024-02-01 16:36 | P.DS ---
Admission Date: 01/31/24 Discharge Date: 02/01/24 Disposition: DC HOME/HOME HEALTH CARE Discharge Condition: GOOD Reason for Admission: Shortness of breath Consultations: Pulmonary- Dr. Sosa Brief History of Present Illness: 69-year-old female with past medical history of hypertension, A-fib status post Watchman device, HIV, HLD, COPD on home O2, CAD status post previous non-STEMI; recent hospitalization from 4 days ago after presenting with dizziness, wrist pain as well as COPD exacerbation. Discharged home yesterday. Patient presented a few hours later because of worsening shortness of breath as well as wheezing. She states she started having fever, shortness of breath as well as dysuria prior to discharge yesterday. She states symptoms worsen upon getting home. She received 2 doses of DuoNebs by EMS on arrival in the ED she was mildly tachycardic at 107 but satting at 96 on 2 L nasal cannula O2. Her temp was elevated at 101. Laboratory workup shows WBC of 11, hemoglobin of 9.8, mild neutrophilia, BMP was unremarkable except for creatinine of 1.1. Lactic acid was normal at 1.6. Chest x-ray shows left pleural effusion similar to previous 1 4 days ago, suspected atelectasis versus infiltrate in the retrocardiac area. Patient has been admitted for presumed left retrocardiac pneumonia with sepsis as well as COPD exacerbation Hospital Course: Problem List Sepsis secondary to pneumonia-HCAP vs community acquired COPD with exacerbation Acute on chronic respiratory failure secondary to COPD-on home 02 History of atrial fibrillation S/P watchman procedure Hx of CAD with recent stent placement Weakness/falls Reported hematuria Hx of HIV, hepatitis, HLD Patient was admitted to the hospital for pneumonia, COPD exacerbation after recently being discharged for weakness/falls. She is initially treated with IV antibiotics and nebulizer treatments, she had significant improvement in her symptoms. She was seen by pulmonology who recommends oral antibioticsAugmentin and prednisone for 1 week which have been sent to her pharmacy. She was seen by physical therapy during her hospitalization and did well, requires no further acute physical therapy interventions. It was discussed with her the importance of using her walker at home, she did not have any dyspnea with exertion and was maintaining good room air sats, patient also does have home oxygen. Patient has remained afebrile since admission, white blood cell count is 10.9 on day of discharge. During her hospitalization she reported some hematuria which is since resolved, when specimen was sent to the lab and came back totally clean, no RBCs were present. Prescriptions for Augmentin, prednisone sent to [facility] in [place] Please continue your other home medications as previously prescribed Especially make sure you are taking your medications for your heart/stents including your aspirin, Brilinta and atorvastatin. Please follow-up with Dr. Sosa in 1 to 2 weeks in the clinic Vital Signs/Physical Exam: Temp Pulse Resp BP Pulse Ox 96.8 F 88 16 152/85 H 95 02/01/24 08:00 02/01/24 09:40 02/01/24 08:00 02/01/24 09:40 02/01/24 08:00 General: Alert, In no apparent distress, Oriented x3 HEENT: Atraumatic, PERRLA Neck: Supple, JVD not distended Respiratory: Clear to auscultation bilaterally, Normal air movement Cardiovascular: Regular rate/rhythm, Normal S1 S2 Gastrointestinal: Normal bowel sounds, No tenderness Musculoskeletal: No tenderness Integumentary: No rashes Neurological: Normal speech, Normal tone Laboratory Data at Discharge: WBC 10.90 thou/uL (4.3-10.9) 02/01/24 07:26 Hgb 9.2 g/dL (12.0-15.0) L 02/01/24 07:26 Hct 28.2 % (36.0-45.0) L 02/01/24 07:26 Plt Count 237 thou/uL (152-406) 02/01/24 07:26 PT 14.9 SECONDS (9.4-12.5) H 01/31/24 03:11 INR 1.34 01/31/24 03:11 APTT 33.6 SECONDS (24.3-36.9) 01/31/24 03:11 Sodium 137 mEq/L (136-145) 02/01/24 07:26 Potassium Cancelled 02/01/24 18:00 BUN 35 mg/dL (7-18) H 02/01/24 07:26 Creatinine 1.26 mg/dL (0.55-1.02) H 02/01/24 07:26 Glucose 198 mg/dL (74-106) H 02/01/24 07:26 Magnesium 2.1 mg/dL (1.6-2.4) 02/01/24 07:26 Total Bilirubin 0.3 mg/dL (0.2-1.0) 02/01/24 07:26 AST 11 U/L (15-37) L 02/01/24 07:26 ALT < 14 U/L (13-56) 02/01/24 07:26 Alkaline Phosphatase 60 U/L (45-117) 02/01/24 07:26 Home Medications: Omeprazole 40 mg PO DAILY 08/10/23 Sertraline [Zoloft*] 100 mg PO DAILY 08/10/23 Trazodone [Desyrel*] 50 mg PO BEDTIME 08/10/23 Vericiguat [Verquvo] 20 mg PO DAILY 08/10/23 Albuterol Inhaler [Ventolin Inhaler*] 2 puff IH Q6H PRN 30 Days #1 inh 08/11/23 Amlodipine [Norvasc*] 10 mg PO DAILY 30 Days #30 tab 08/11/23 Buspirone HCl 30 mg PO BID 08/11/23 Hydralazine [Apresoline*] 50 mg PO TID PRN 30 Days #30 tab 08/11/23 Mometasone/Formoterol [Dulera 200 Mcg/5 Mcg Inhaler] 2 puff IH BID 30 Days #1 inhaler 08/11/23 Spironolactone [Aldactone*] 25 mg PO BID 30 Days #60 tab 08/11/23 Valsartan [Diovan*] 160 mg PO DAILY tab 08/11/23 Acidophilus/Bulgaricus [Lactinex Packet] 1 each PO DAILY 5 Days #5 packet 10/15/23 Simethicone 125 mg PO TID PRN #30 cap 01/07/24 Aspirin Chewable [Aspirin Chewable*] 81 mg PO DAILY #30 tab.chew 01/12/24 Atorvastatin Calcium [Lipitor] 40 mg PO BEDTIME #30 tab 01/12/24 Ticagrelor [Brilinta*] 90 mg PO BID #60 tab 01/12/24 Aspirin Chewable [Aspirin Chewable*] 81 mg PO DAILY tab.chew 01/16/24 Furosemide [Lasix*] 40 mg PO DAILY #30 tab 01/16/24 Metoprolol Tartrate [Lopressor*] 100 mg PO BID #60 tab 01/16/24 clonazePAM [Clonazepam] 0.5 mg PO TIDP PRN 01/29/24 Ipratropium/Albuterol Sulfate [Iprat-Albut 0.5-3(2.5) mg/3 ml] 3 ml IH TID PRN #90 amp 01/30/24 Isosorbide Mononitrate [Isosorbide Mononitrate ER] 30 mg PO DAILY #30 tab 01/30/24 Nebulizer [Mc 300 Nebulizer W-Mouthpiece] 1 each MC TID PRN #1 ea 01/30/24 Amox/Clavulanate [Augmentin 875-125 Tab] 875 mg PO BID 5 Days #10 tab 02/01/24 predniSONE [Deltasone*] 10 mg PO BID 7 Days #14 tab 02/01/24 New Medications: Amox/Clavulanate [Augmentin 875-125 Tab] 875 mg PO BID 5 Days #10 tab predniSONE [Deltasone*] 10 mg PO BID 7 Days #14 tab Physician Discharge Instructions: Patient was admitted to the hospital for pneumonia, COPD exacerbation after recently being discharged for weakness/falls. She is initially treated with IV antibiotics and nebulizer treatments, she had significant improvement in her symptoms. She was seen by pulmonology who recommends oral antibioticsAugmentin and prednisone for 1 week which have been sent to her pharmacy. She was seen by physical therapy during her hospitalization and did well, requires no further acute physical therapy interventions. It was discussed with her the importance of using her walker at home, she did not have any dyspnea with exertion and was maintaining good room air sats, patient also does have home oxygen. Patient has remained afebrile since admission, white blood cell count is 10.9 on day of discharge. During her hospitalization she reported some hematuria which is since resolved, when specimen was sent to the lab and came back totally clean, no RBCs were present. Prescriptions for Augmentin, prednisone sent to [facility] in [place] Please continue your other home medications as previously prescribed Especially make sure you are taking your medications for your heart/stents including your aspirin, Brilinta and atorvastatin. Please follow-up with Dr. Sosa in 1 to 2 weeks in the clinic Diet: Regular Activity: Fall precautions Followup: Moody Sosa MD [ACTIVE - CAN ADMIT] - 1-2 Weeks Lacey VARELA,Lele Peterson DO [Primary Care Provider] - 1-2 Weeks Time spent managing pt's care (in minutes): 34
== END 2024-02-01 13:38 | disposition home health service (06) | DRG 871 ==
LOC: ER 02:06 → ERHOLD 04:00 → 4TH 05:42
PROVIDERS: ADMIT Internal Medicine; ATTEND Hospitalist
DX: A40.3 Sepsis due to Streptococcus pneumoniae (principal); J18.9 Pneumonia, unspecified organism; J96.20 Acute and chronic respiratory failure, unspecified whether with hypoxia or hypercapnia; I50.32 Chronic diastolic (congestive) heart failure; J44.1 Chronic obstructive pulmonary disease with (acute) exacerbation; J44.0 Chronic obstructive pulmonary disease with (acute) lower respiratory infection; I11.0 Hypertensive heart disease with heart failure; I48.91 Unspecified atrial fibrillation; D64.9 Anemia, unspecified; E78.00 Pure hypercholesterolemia, unspecified; K75.9 Inflammatory liver disease, unspecified; K21.9 Gastro-esophageal reflux disease without esophagitis; I25.10 Atherosclerotic heart disease of native coronary artery without angina pectoris; I25.2 Old myocardial infarction; R31.9 Hematuria, unspecified; Z21 Asymptomatic human immunodeficiency virus [HIV] infection status; Z88.5 Allergy status to narcotic agent; Z88.1 Allergy status to other antibiotic agents; Z88.2 Allergy status to sulfonamides; Z88.8 Allergy status to other drugs, medicaments and biological substances; Z79.82 Long term (current) use of aspirin; Z90.49 Acquired absence of other specified parts of digestive tract; Z99.81 Dependence on supplemental oxygen; Z96.611 Presence of right artificial shoulder joint; Z79.899 Other long term (current) drug therapy; Z87.891 Personal history of nicotine dependence
CPT/HCPCS: 36415; 71045; 71046; 80053; 81001; 82947; 83605; 83735; 84443; 84484; 85025; 85610; 85730; 87040; 93005; 96365; 96375; 97161; 99285; J0360; J0692; J0696; J1650; J2919; J7512; J7605; J7613; J7644

== ENCOUNTER 2024-02-15 09:33 | Emergency (ER) | payer OTHER ==
[2024-02-15] MEDS ORDERED: KETAMINE HCL IN 0.9 % NACL 50 MG/5 ML SYRINGE IV ONE (09:57)
[2024-02-15 10:12] LABS: Absolute Lymphocytes (CBC) 0.6 K/uL (0.7-4.9); Absolute Monocytes 0.9 K/uL (0.1-1.3); Absolute Neutrophil 6.5 K/uL (1.8-8.0); Basophils % 0.2 % (0-1.3); Eosinophils % 0.6 % (0-4.4); Hematocrit 26.9 % (36.0-45.0); Hemoglobin 8.5 g/dL (12.0-15.0); Lymphocytes % 7.3 % (15.3-44.8); MCH 26.1 pg (27.0-35.0); MCHC 31.7 g/dL (32.0-36.0); MCV 82.1 fL (80-100); MPV 7.4 fL (7.6-11.3); Monocytes % 11.4 % (3.3-12.3); Neutrophils % 80.5 % (41.7-73.7); Nucleated Red Blood Cells % 0.1 % (0-0); Platelets 157 thou/uL (152-406); RBC Red Blood Cell Count 3.28 M/uL (3.86-4.86); Red Cell Distribution Width 16.5 % (12.1-15.2)
[2024-02-15 10:27] LABS: Albumin 2.3 g/dL (3.4-5.0); Albumin/Globulin Ratio 0.6 (1.1-1.8); Alkaline Phosphatase 51 U/L (45-117); Anion Gap 8.3 mEq/L (5.0-15.0); BUN Blood Urea Nitrogen 24 mg/dL (7-18); Bicarbonate 24 mEq/L (21-32); Bilirubin Total 0.5 mg/dL (0.2-1.0); Globulin 3.6 g/dL (2.3-3.5); Glomerular Filtration Rate 52 ml/min (=/>90); Glucose Level 100 mg/dL (74-106); NT PRO-BNP 4070 pg/mL (<125); Potassium 3.3 mEq/L (3.5-5.1); Protein, Total 5.9 g/dL (6.4-8.2); Sodium Level 140 mEq/L (136-145); Troponin High Sensitivity 11.8 pg/mL (<58.9)
[2024-02-15 10:31] LABS: ALT/SGPT < 14 U/L (13-56); AST/SGOT < 10 U/L (15-37)
--- NOTE | 2024-02-15 13:12 | ER ---
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 Coronavirus screen: Vaccine status: Patient reports receiving the 2nd dose of the covid vaccine. Ebola Screen: No symptoms or risks identified at this time. Initial Sepsis Screen: Does the patient meet any 2 criteria? No. Patient's initial sepsis screen is negative. Does the patient have a suspected source of infection? No. Patient's initial sepsis screen is negative. Risk Assessment: Do you want to hurt yourself or someone else? Patient reports no desire to harm self or others. Onset of symptoms was February 15, 2024. 09:36 Method Of Arrival: EMS: [facility] 09:36 Acuity: BLAYNE 3 ph Triage Assessment: 09:53 General: Appears in no apparent distress. Behavior is calm, cooperative. Pain: ph Complains of pain in anterior aspect of left upper chest Pain does not radiate. Neuro: Level of Consciousness is awake, alert, obeys commands, Oriented to person, place, time, situation. Cardiovascular: Reports chest pain, shortness of breath, Capillary refill < 3 seconds in bilateral fingers Patient's skin is warm and dry. Respiratory: Airway is patent Respiratory effort is even, unlabored. GI: No signs and/or symptoms were reported involving the gastrointestinal system. Derm: Skin is normal, Bruising that is dark purple, on right arm and left arm. Musculoskeletal: Circulation, motion, and sensation intact. Range of motion: intact in all extremities. Historical: - Allergies: 09:48 Azithromycin; ph 09:48 Bactrim; ph 09:48 butorphanol; ph 09:48 Fentanyl; ph 09:48 Reglan; ph 09:48 Sulfa (Sulfonamide Antibiotics); ph 09:48 TRIMETHOPRIM; ph - PMHx: 09:48 a-fib; angina pectoris; Bipolar disorder; COPD; Hepatitis; esophageal varices; HIV; ph Home O2 via NC; Hypercholesterolemia; Hypertensive disorder; Migraine; NSTEMI; - Immunization history:: Adult Immunizations unknown. - Infectious Disease History:: Denies. - Social history:: Smoking status: unknown. Screenin:24 [facility] ED Fall Risk Assessment (Adult) History of falling in the last 3 months, ph including since admission Yes- fall prone (multiple falls) (3 pts) Confusion or Disorientation No (0 pts) Intoxicated or Sedated Yes (3 pts) Impaired Gait No (0 pts) Mobility Assist Device Used No (0 pt) Altered Elimination No (0 pt) Score/Fall Risk Level 3 or more points = High Risk Oriented to surroundings, Maintained a safe environment, Educated pt \T\ family on fall prevention, incl call for assistance when getting out of bed, Assessed \T\ reinforced patient's understanding of fall precautions, Provided non-skid footwear, Hourly rounding (assess needs \T\ fall precautionary measures) done, Used ambulatory aids as needed (educated on \T\ assisted with). Abuse screen: Denies threats or abuse. Denies injuries from another. Nutritional screening: No deficits noted. Tuberculosis screening: No symptoms or risk factors identified. Assessment: 11:00 General: SEE TRIAGE ASSESSMENT. ph 13:00 Reassessment: Patient appears in no apparent distress at this time. Patient and/or ph family updated on plan of care and expected duration. Pain level reassessed. Patient is alert, oriented x 3, equal unlabored respirations, skin warm/dry/pink. Continues to c/o pain, requesting morphine, ERP notified. Vital Signs: 09:36 BP 126 / 89; Pulse 92; Resp 22; Temp 97.9; Pulse Ox 96% on R/A; Weight 81.19 kg; Height ph 5 ft. 4 in. ; 11:25 BP 138 / 116; Pulse 102; Resp 18; Pulse Ox 100% on 2 lpm NC; ph 13:30 BP 145 / 99; Pulse 97; Resp 18; Pulse Ox 100% on 2 lpm NC; bp 09:36 Body Mass Index 30.72 (81.19 kg, 162.56 cm) ph ED Course: 09:36 Patient arrived in ED. bp 09:36 Leyda Capellan MD is Attending Physician. sd2 09:36 Solange Bennett RN is Primary Nurse. ph 09:42 Triage completed. ph 09:47 Arm band placed on. ph 10:05 Initial lab(s) drawn, by me, sent to lab. EKG done, by ED staff, reviewed by Siva JENKINS ph D. Maintain EMS IV. Dressing intact. Good blood return noted. Site clean \T\ dry. Gauge \T\ site: 20 R foot. Flushed with 10 mL NS. 11:24 Patient requests pain medication. kc6 11:24 Patient has correct armband on for positive identification. Bed in low position. Call ph light in reach. Side rails up X2. case monitor on. Pulse ox on. NIBP on. Door closed. Noise minimized. Warm blanket given. PO fluids given. 11:38 XRAY Chest (1 view) In Process Unspecified. EDMS 13:30 Provided Education on: N/A. bp 14:53 No provider procedures requiring assistance completed. IV discontinued, intact, bp bleeding controlled, No redness/swelling at site. Pressure dressing applied. Administered Medications: 10:30 Drug: Ketamine IVP 0.2 mg/kg IVP once; Mix in 50 mL NS IV over 10 minutes. Maximum Dose ph 10 mg Route: IVP; Site: Other; 14:52 Follow up: Response: No adverse reaction bp Medication: 11:24 VIS not applicable for this client. ph Outcome: 13:11 Discharge ordered by . sd2 13:30 Discharged to home via wheelchair, bp 13:30 Condition: stable 13:30 Discharge instructions given to patient, Instructed on discharge instructions, follow up and referral plans. Demonstrated understanding of instructions, follow-up care, 14:54 Patient left the ED. bp Signatures: Dispatcher [employer] EDMA Solange Bennett, Carlos Eduardo Clay RN, ph RN Leyda Vo MD MD sd2 Madyson Mills RN RN [id number] Corrections: (The following items were deleted from the chart) 11:13 11:12 Ketamine IVP 16.238 mg IVP in Other ph ph 11:13 11:12 Ketamine IVP 16.238 mg IVP in Other ph ph 14:53 14:52 Discharged to home via wheelchair, bp bp 14:53 14:52 Condition: stable bp bp 14:53 14:52 Discharge instructions given to patient, Instructed on discharge instructions, bp follow up and referral plans. Demonstrated understanding of instructions, follow-up care, bp
--- NOTE | 2024-02-15 13:12 | EDPHYS ---
Physician Documentation [facility] Name: Marjan Kolb Age: 69 yrs Sex: Female : 1955 Arrival Date: 02/15/2024 Time: 09:33 Bed IW10 Private MD: ED Physician Leyda Capellan HPI: 02/14 09:47 This 69 yrs old Female presents to ER via EMS with complaints of chest pain. sd2 09:47 69 yo F presents via EMS with CC of left sided chest pain. Also endorses associated sd2 SOB. EMS reports giving 324 mg of ASA, 1 Nitro and 300 mL of IVFs. Noted to be in A-fib in the 100s-110s which she has a hx of and takes Brilinta for. Reports she has been compliant with the medications. Seen for same symptoms 2x yesterday as well. Negative full cardiac workup earlier in the day yesterday. Reports hx of chronic pain but has not been to see pain management. . Historical: - Allergies: 09:48 Azithromycin; ph 09:48 Bactrim; ph 09:48 butorphanol; ph 09:48 Fentanyl; ph 09:48 Reglan; ph 09:48 Sulfa (Sulfonamide Antibiotics); ph 09:48 TRIMETHOPRIM; ph - PMHx: 09:48 a-fib; angina pectoris; Bipolar disorder; COPD; Hepatitis; esophageal varices; HIV; ph Home O2 via NC; Hypercholesterolemia; Hypertensive disorder; Migraine; NSTEMI; - Immunization history:: Adult Immunizations unknown. - Infectious Disease History:: Denies. - Social history:: Smoking status: unknown. ROS: 09:47 Constitutional: Negative for fever, chills, and weight loss, Eyes: Negative for injury, sd2 pain, redness, and discharge, 09:47 Abdomen/GI: Negative for abdominal pain, nausea, vomiting, diarrhea. MS/Extremity: Negative for injury and deformity, Skin: Negative for injury, rash, and discoloration, Neuro: Negative for headache, numbness and tingling. 09:47 Cardiovascular: Positive for chest pain, Negative for edema, palpitations, 09:47 Respiratory: Positive for shortness of breath, wheezing, Negative for hemoptysis, Exam: 09:47 Constitutional: This is a well developed, well nourished patient who is awake, alert, sd2 and in no acute distress. Head/Face: Normocephalic, atraumatic. Eyes: EOMI, normal conjunctiva bilaterally Chest/axilla: Normal chest wall appearance and motion. Nontender with no deformity. Cardiovascular: Regular rate and rhythm with a normal S1 and S2. No gallops, murmurs, or rubs. 2+ distal pulses. Respiratory: Lungs with expiratory wheezing noted to RUL, no increased work of breathing, stridor or respiratory distress Abdomen/GI: Soft, non-tender, with normal bowel sounds. No guarding or rebound. No evidence of tenderness throughout. Skin: Warm, dry with poor turgor. Normal color with no rashes, no lesions, and no evidence of cellulitis. MS/ Extremity: Pulses equal, no cyanosis. Neurovascular intact. Full, normal range of motion. Psych: Awake, alert, with orientation to person, place and time. Behavior, mood, and affect are within normal limits. 11:03 ECG was reviewed by the Attending Physician. A-fib, rate 94, no STEMI criteria, no sd2 significant changes compared to prior EKG Vital Signs: 09:36 BP 126 / 89; Pulse 92; Resp 22; Temp 97.9; Pulse Ox 96% on R/A; Weight 81.19 kg; Height ph 5 ft. 4 in. ; 11:25 BP 138 / 116; Pulse 102; Resp 18; Pulse Ox 100% on 2 lpm NC; ph 13:30 BP 145 / 99; Pulse 97; Resp 18; Pulse Ox 100% on 2 lpm NC; bp 09:36 Body Mass Index 30.72 (81.19 kg, 162.56 cm) ph MDM: 09:36 Patient medically screened. sd2 09:47 Differential Diagnosis Malingering, ACS, chronic pain, PE, dissection, MSK among sd2 others. Data reviewed: vital signs, nurses notes, EMS record, lab test result(s), EKG, radiologic studies. I considered the following discharge prescriptions or medication management in the emergency department Medications were administered in the Emergency Department. See MAR. Historians other than the Patient: EMS: provides initial report. Care significantly affected by the following chronic conditions: Hypertension, Chronic Obstructive Pulmonary Disease, HIV. 13:10 Counseling: I had a detailed discussion with the patient and/or guardian regarding the sd2 historical points, exam findings, and any diagnostic results supporting the discharge/admit diagnosis, lab results, radiology results, the need for outpatient follow up, to return to the emergency department if symptoms worsen or persist or if there are any questions or concerns that arise at home. ED course: Labs grossly WNCL for patient. CXR clear. Trop neg. EKG with no ischemic changes. Pt has hx of chronic pain. Advised to follow up outpatient with PCP and Pain Management. . 02/14 09:51 Order name: CBC with Diff; Complete Time: 10:32 02/14 09:51 Order name: CMP; Complete Time: 10:32 02/14 09:51 Order name: Troponin High Sensitivity; Complete Time: 10:32 02/14 09:51 Order name: BNP; Complete Time: 10:32 02/14 09:51 Order name: XRAY Chest (1 view); Complete Time: 17:38 02/14 09:51 Order name: EKG - Nurse/Tech; Complete Time: 10:50 sd2 Administered Medications: 10:30 Drug: Ketamine IVP 0.2 mg/kg IVP once; Mix in 50 mL NS IV over 10 minutes. Maximum Dose ph 10 mg Route: IVP; Site: Other; 14:52 Follow up: Response: No adverse reaction bp Disposition Summary: 02/15/24 13:11 Discharge Ordered Problem: an ongoing problem sd2 Symptoms: have improved sd2 Condition: Stable sd2 Diagnosis - Chest pain, unspecified sd2 - Other chronic pain sd2 Followup: sd2 - With: Private Physician - When: 2 - 3 days - Reason: Recheck today's complaints, Continuance of care, Re-evaluation by your physician Discharge Instructions: - Discharge Summary Sheet sd2 - Nonspecific Chest Pain, Adult sd2 Forms: - Medication Reconciliation Form sd2 - Antibiotic Education sd2 - Prescription Opioid Use sd2 - Patient Portal Instructions sd2 - Leadership Thank You Letter sd2 Signatures: Dispatcher [employer] Solange Dyer RN RN Leyda Capellan MD MD sd2 Carlos Eduardo Olivera RN bp
--- NOTE | 2024-02-15 13:47 | RAD REPORT ---
Procedure: Chest Single View History: Chest pain Comparison: February 14, 2024 Small left pleural effusion suspected. Lungs appear clear of acute infiltrate Heart is moderately enlarged
[2024-02-15 15:35] VITALS: TEMP 97.9
[2024-02-15 15:37] VITALS: BP 145/99; O2SAT 100
--- NOTE | 2024-02-16 12:12 | EKG ---
Test Date: 2024-02-15 Test Time: 10:16:02 Computer Systems Hardware Analyst: STEPHANIE MEASUREMENT RESULTS: Intervals: Rate: 94 HI: QRSD: 100 QT: 398 QTc: 497 Bishop: P: HI: QRS: 1 T: 195 INTERPRETIVE STATEMENTS: Atrial fibrillation ST & T wave abnormality, consider inferolateral ischemia Prolonged QT Abnormal ECG Compared to ECG 02/14/2024 13:06:53 Prolonged QT interval now present ST (T wave) deviation still present Possible ischemia still present Electronically Signed On 02-16-24 12:09:16 CDT by Tommy Da Silva
== END 2024-02-15 14:54 | disposition home or self-care (01) ==
LOC: ER 09:33
DX: R07.89 Other chest pain (principal); G89.29 Other chronic pain; I48.91 Unspecified atrial fibrillation; I10 Essential (primary) hypertension; I25.2 Old myocardial infarction; Z21 Asymptomatic human immunodeficiency virus [HIV] infection status
CPT/HCPCS: 36415; 71045; 80053; 83880; 84484; 85025; 93005; 96374; 99285

== ENCOUNTER 2024-02-21 11:47 | Emergency (ER) | payer OTHER ==
[2024-02-21] MEDS ORDERED: HYDROCODONE/APAP 5/325 MG TAB ONE (12:22)
--- NOTE | 2024-02-21 12:45 | EDPHYS ---
Physician Documentation [facility] Name: Marjan Kolb Age: 69 yrs Sex: Female : 1955 Arrival Date: 02/21/2024 Time: 11:47 Bed 13 Private MD: ED Physician Lennie Menon HPI: 02/20 12:39 This 69 yrs old Female presents to ER via EMS with complaints of Shortness Of gb1 Breath, Chest Pain. 12:39 69-year-old occasion female states that she has chest pain and shortness of breath is gb1 similar to her previous. She has a history of atrial fibrillation, bipolar, COPD, esophageal varices, hepatitis, HIV and hyperlipidemia. She denies any radiation of pain and denies any difficulty ambulating.. Historical: - Allergies: 12:00 Azithromycin; kc6 12:00 Bactrim; kc6 12:00 butorphanol; kc6 12:00 Fentanyl; kc6 12:00 Reglan; kc6 12:00 Sulfa (Sulfonamide Antibiotics); kc6 12:00 TRIMETHOPRIM; kc6 - PMHx: 12:00 a-fib; angina pectoris; Bipolar disorder; COPD; esophageal varices; Hepatitis; HIV; kc6 Hypercholesterolemia; Hypertensive disorder; Migraine; NSTEMI; - PSHx: 12:00 heart surgery (a-fi); Stented artery; kc6 - Immunization history:: Adult Immunizations up to date. - Infectious Disease History:: Denies. - Social history:: Smoking status: Patient reports the use of cigarette tobacco products. Exam: 12:39 Constitutional: This is a well developed, well nourished patient who is awake, alert, gb1 and in no acute distress. Head/Face: Normocephalic, atraumatic. Eyes: Pupils equal round and reactive to light, extra-ocular motions intact. Lids and lashes normal. Conjunctiva and sclera are non-icteric and not injected. Cornea within normal limits. Periorbital areas with no swelling, redness, or edema. ENT: Nares patent. No nasal discharge, no septal abnormalities noted. Tympanic membranes are normal and external auditory canals are clear. Oropharynx with no redness, swelling, or masses, exudates, or evidence of obstruction, uvula midline. Mucous membranes moist. Neck: Trachea midline, no thyromegaly or masses palpated, and no cervical lymphadenopathy. Supple, full range of motion without nuchal rigidity, or vertebral point tenderness. No Meningismus. Chest/axilla: Normal chest wall appearance and motion. Nontender with no deformity. No lesions are appreciated. Cardiovascular: Regular rate and rhythm with a normal S1 and S2. No gallops, murmurs, or rubs. Normal PMI, no JVD. No pulse deficits. Respiratory: Lungs have equal breath sounds bilaterally, clear to auscultation and percussion. No rales, rhonchi or wheezes noted. No increased work of breathing, no retractions or nasal flaring. Abdomen/GI: Soft, non-tender, with normal bowel sounds. No distension or tympany. No guarding or rebound. No evidence of tenderness throughout. Back: No spinal tenderness. No costovertebral tenderness. Full range of motion. Skin: Warm, dry with normal turgor. Normal color with no rashes, no lesions, and no evidence of cellulitis. MS/ Extremity: Pulses equal, no cyanosis. Neurovascular intact. Full, normal range of motion. Vital Signs: 12:00 BP 172 / 114; Pulse 94; Resp 20 S; Temp 98.8(TE); Pulse Ox 100% on R/A; Pain 10/10; kc6 12:23 BP 175 / 95; kc6 12:00 Pain Scale: Adult kc6 MDM: 12:14 Patient medically screened. gb1 12:39 Differential diagnosis: asthma, CHF exacerbation, Chronic Obstructive Pulmonary Disease gb1 Myocardial Infarction pneumonia, pulmonary edema, Pulmonary Embolism reactive airway disease, Sepsis Unstable Angina. 12:39 ED course: 61-year-old female with history of frequent ER evaluations for dyspnea and gb1 chest pain. Patient does not have any signs of an consistent with an anginal equivalent today and while walking to the room to evaluate her she stated to me directly "I want Dr. Shah", and I want that shot that he gave the last time. I continue to evaluate the patient and do a complete physical examination. I did explain to her that we would have to do an ER evaluation for acute coronary syndrome, rule out pneumonia and a COPD exacerbation as well as a PE. Patient stated that she would like IV ketamine and an IV narcotic specifically morphine or Dilaudid. I did explain to the patient that I would write her for pain medication orally until we work to evaluate a complete ER diagnostic evaluation for chest pain and shortness of breath. Patient refused further evaluation and decided to leave the emergency department expeditiously.. 12:45 Data reviewed: vital signs, nurses notes. gb1 02/20 12:14 Order name: Cardiac monitoring; Complete Time: 12:23 gb1 02/20 12:14 Order name: O2 Per Protocol; Complete Time: 12:23 gb1 02/20 12:14 Order name: O2 Sat Monitoring; Complete Time: 12:23 gb1 Administered Medications: 12:33 Not Given (Patient Refused): hydrocodone-acetaminophen5 mg-325 mg 1 tabs PO once kc6 Disposition Summary: 02/21/24 12:45 Left Against Medical Advice Notes: Location: Home gb1 Problem: chronic gb1 Symptoms: are unchanged gb1 Condition: Fair gb1 Diagnosis - Chest pain on breathing gb1 Followup: gb1 - With: Emergency Department - When: - Reason: Recheck today's complaints Signatures: Dispatcher [employer] EDMadyson Jackson RN RN kc6 Lennie Menon MD MD gb1 Corrections: (The following items were deleted from the chart) 12:32 12:14 EKG - Nurse/Tech ordered. [facility] kc6 12:32 12:14 IV Saline Lock ordered. 1 kc6 12:32 12:14 Labs collected and sent ordered. 1 kc6 12:44 12:15 Chest Single View+RAD.RAD.BRZ ordered. EDMS EDMS
--- NOTE | 2024-02-21 12:45 | ER ---
Nurse's Notes [facility] Name: Marjan Kolb Age: 69 yrs Sex: Female : 1955 Arrival Date: 02/21/2024 Time: 11:47 Bed 13 Private MD: Diagnosis: Chest pain on breathing Presentation: 02/20 12:00 Chief complaint: EMS states: they were toned out to Dr. Rahman's office for SOB and kc6 CP. Coronavirus screen: At this time, the client does not indicate any symptoms associated with coronavirus-19. Ebola Screen: No symptoms or risks identified at this time. Initial Sepsis Screen: Does the patient meet any 2 criteria? HR > 90 bpm. Does the patient have a suspected source of infection? No. Patient's initial sepsis screen is negative. Risk Assessment: Do you want to hurt yourself or someone else? Patient reports no desire to harm self or others. Onset of symptoms was February 21, 2024. 12:00 Method Of Arrival: EMS: [facility] kc6 12:00 Acuity: BLAYNE 3 kc6 Triage Assessment: 12:00 General: Appears in no apparent distress. uncomfortable, well groomed, well developed, kc6 Behavior is calm, cooperative, appropriate for age. Pain: Complains of pain in chest, left upper quadrant and left lower quadrant Pain currently is 10 out of 10 on a pain scale. Is chronic. EENT: No signs and/or symptoms were reported regarding the EENT system. Neuro: Level of Consciousness is awake, alert, obeys commands, Oriented to person, place, time, situation, Appropriate for age. Cardiovascular: Reports chest pain, Heart tones S1 S2 present Capillary refill < 3 seconds Rhythm is atrial fibrillation. Respiratory: Reports shortness of breath at rest on exertion Airway is patent Trachea midline Respiratory effort is even, unlabored, Respiratory pattern is regular, symmetrical, Breath sounds are diminished bilaterally. Onset: The symptoms/episode began/occurred today, the patient has mild shortness of breath. GI: No signs and/or symptoms were reported involving the gastrointestinal system. : No signs and/or symptoms were reported regarding the genitourinary system. Derm: No signs and/or symptoms reported regarding the dermatologic system. Skin is fragile, is thin, with poor turgor Skin is dry, Skin is normal, Skin temperature is warm Bruising that is dark purple, on right arm and left arm. Musculoskeletal: No signs and/or symptoms reported regarding the musculoskeletal system. Circulation, motion, and sensation intact. Capillary refill < 3 seconds, Range of motion: intact in all extremities. Historical: - Allergies: 12:00 Azithromycin; kc6 12:00 Bactrim; kc6 12:00 butorphanol; kc6 12:00 Fentanyl; kc6 12:00 Reglan; kc6 12:00 Sulfa (Sulfonamide Antibiotics); kc6 12:00 TRIMETHOPRIM; kc6 - PMHx: 12:00 a-fib; angina pectoris; Bipolar disorder; COPD; esophageal varices; Hepatitis; HIV; kc6 Hypercholesterolemia; Hypertensive disorder; Migraine; NSTEMI; - PSHx: 12:00 heart surgery (a-fi); Stented artery; kc6 - Immunization history:: Adult Immunizations up to date. - Infectious Disease History:: Denies. - Social history:: Smoking status: Patient reports the use of cigarette tobacco products. Screenin:04 [facility] ED Fall Risk Assessment (Adult) History of falling in the last 3 months, kc6 including since admission No falls in past 3 months (0 pts) Confusion or Disorientation No (0 pts) Intoxicated or Sedated No (0 pts) Impaired Gait No (0 pts) Mobility Assist Device Used No (0 pt) Altered Elimination No (0 pt) Score/Fall Risk Level 0 - 2 = Low Risk Oriented to surroundings. Abuse screen: Denies threats or abuse. Denies injuries from another. Nutritional screening: No deficits noted. Tuberculosis screening: No symptoms or risk factors identified. Assessment: 12:04 Reassessment: please see triage. 6 Vital Signs: 12:00 BP 172 / 114; Pulse 94; Resp 20 S; Temp 98.8(TE); Pulse Ox 100% on R/A; Pain 10/10; kc6 12:23 BP 175 / 95; kc6 12:00 Pain Scale: Adult kc ED Course: 11:51 Patient arrived in ED. kc6 11:51 Lennie Menon MD is Attending Physician. gb1 11:59 Madyson Mills, ASHLEY is Primary Nurse. kc6 12:00 Triage completed. kc6 12:00 Arm band placed on. kc6 12:04 Patient has correct armband on for positive identification. Bed in low position. Call kc6 light in reach. Side rails up X2. leather heel breaster on. Pulse ox on. NIBP on. Door closed. Noise minimized. Lights dimmed. Warm blanket given. Pillow given. 12:04 Patient maintains SpO2 saturation greater than 95% on room air. kc6 Administered Medications: 12:33 Not Given (Patient Refused): hydrocodone-acetaminophen5 mg-325 mg 1 tabs PO once kc6 Outcome: 12:33 AMA AMA form signed kc6 12:45 Patient left the ED. kc6 Signatures: Madyson Mills RN RN kc6 Lennie Menon MD MD gb1
[2024-02-21 13:32] VITALS: TEMP 98.8; O2SAT 100
[2024-02-21 13:34] VITALS: BP 175/95
== END 2024-02-21 12:45 | disposition left against medical advice (07) ==
LOC: ER 11:47
DX: R07.1 Chest pain on breathing (principal); R06.02 Shortness of breath; I10 Essential (primary) hypertension; I48.91 Unspecified atrial fibrillation; J44.9 Chronic obstructive pulmonary disease, unspecified; Z21 Asymptomatic human immunodeficiency virus [HIV] infection status; Z72.0 Tobacco use
CPT/HCPCS: 99284

== ENCOUNTER 2024-02-22 18:53 | Emergency (ER) | payer OTHER ==
[2024-02-22 21:19] LABS: PT Prothrombin Time 14.8 SECONDS (9.4-12.5); Protime INR 1.33
--- NOTE | 2024-02-22 21:28 | RAD REPORT ---
EXAMINATION: ONE VIEW CHEST XR CLINICAL INDICATION: Female, 69 years old.COPD;Dyspnea TECHNIQUE: 1 View, AP supine, X-ray of the chest was performed. [id number]. COMPARISON: 02/19/2024 FINDINGS: Lungs and pleura: Left lung base not well visualized possibly due to either pleural fluid or underpen etration. Heart and mediastinum: Thyromegaly. Unremarkable mediastinal contours. Osseous structures: No acute abnormality. Shoulder arthroplasties. Tubes/lines: None Other: None. IMPRESSION: The left lung base is not well assessed due to underpenetration. The previously noted left pleural ef fusion and possibly underlying atelectasis is likely present.
[2024-02-22 22:07] LABS: Albumin 2.9 g/dL (3.4-5.0); Albumin/Globulin Ratio 0.7 (1.1-1.8); Alkaline Phosphatase 60 U/L (45-117); Anion Gap 9.6 mEq/L (5.0-15.0); BUN Blood Urea Nitrogen 19 mg/dL (7-18); Bicarbonate 26 mEq/L (21-32); Bilirubin Direct 0.2 mg/dL (0-0.2); Bilirubin Indirect, Calculated 0.3 mg/dL (0.2-0.8); Bilirubin Total 0.5 mg/dL (0.2-1.0); Globulin 4.1 g/dL (2.3-3.5); Glomerular Filtration Rate 36 ml/min (=/>90); Glucose Level 105 mg/dL (74-106); Magnesium 2.2 mg/dL (1.6-2.4); NT PRO-BNP 5423 pg/mL (<125); Potassium 3.6 mEq/L (3.5-5.1); Sodium Level 137 mEq/L (136-145); Troponin High Sensitivity 8.8 pg/mL (<58.9)
[2024-02-22 22:09] LABS: ALT/SGPT < 14 U/L (13-56); AST/SGOT < 10 U/L (15-37)
--- NOTE | 2024-02-22 22:43 | ER ---
Nurse's Notes [facility] Name: Marjan Kolb Age: 69 yrs Sex: Female : 1955 Arrival Date: 02/22/2024 Time: 18:53 Bed IW10 Private MD: Diagnosis: CHF exacerbation, dyspnea, shortness of breath Presentation: 02/21 19:20 Chief complaint: EMS states: shortness of breath x2 days. Has been taking breathing tm6 treatments at home. Upon EMS arrival, O2 96% RA. Coronavirus screen: Client denies travel out of the [place] in the last 14 days. Ebola Screen: Patient negative for fever greater than or equal to 101.5 degrees Fahrenheit, and additional compatible Ebola Virus Disease symptoms Patient denies exposure to infectious person. Patient denies travel to an Ebola-affected area in the 21 days before illness onset. No symptoms or risks identified at this time. Initial Sepsis Screen: Does the patient meet any 2 criteria? RR > 20 per min. Does the patient have a suspected source of infection? No. Patient's initial sepsis screen is negative. Risk Assessment: Do you want to hurt yourself or someone else? Patient reports no desire to harm self or others. Onset of symptoms was February 20, 2024. 19:20 Method Of Arrival: EMS: [facility] tm6 19:20 Acuity: BLAYNE 3 tm6 Triage Assessment: 19:22 General: Appears uncomfortable, Behavior is cooperative. Pain: Complains of pain in tm6 chest and abdomen Pain currently is 10 out of 10 on a pain scale. Pain began 2-3 days ago. EENT: No signs and/or symptoms were reported regarding the EENT system. Neuro: Level of Consciousness is awake, alert, obeys commands, Oriented to person, place, time, situation. Cardiovascular: Reports chest pain, since 2 days ago Patient's skin is warm and dry. Respiratory: Reports shortness of breath since 2 days ago Onset: The symptoms/episode began/occurred 2 days ago, the patient has mild shortness of breath. GI: Abdomen is flat, non-distended, Reports upper abdominal pain. : No signs and/or symptoms were reported regarding the genitourinary system. Derm: No signs and/or symptoms reported regarding the dermatologic system. Musculoskeletal: No signs and/or symptoms reported regarding the musculoskeletal system. Historical: - Allergies: 19:22 Azithromycin; tm6 19:22 Bactrim; tm6 19:22 butorphanol; tm6 19:22 Fentanyl; tm6 19:22 Reglan; tm6 19:22 Sulfa (Sulfonamide Antibiotics); tm6 19:22 TRIMETHOPRIM; tm6 - PMHx: 19:22 a-fib; a-fib; angina pectoris; Bipolar disorder; Bipolar disorder; COPD; esophageal tm6 varices; esophageal varices; Hepatitis; HIV; Hypercholesterolemia; Hypertensive disorder; Migraine; NSTEMI; - PSHx: 19:22 heart surgery (a-fi); Stented artery; tm6 - Immunization history:: Client reports receiving the 2nd dose of the Covid vaccine. - Infectious Disease History:: Denies. - Social history:: Smoking status: Patient denies any tobacco usage or history of. Patient/guardian denies using alcohol. Screenin:30 [facility] ED Fall Risk Assessment (Adult) History of falling in the last 3 months, rg5 including since admission Yes- single mechanical fall (1 pt) Confusion or Disorientation No (0 pts) Intoxicated or Sedated No (0 pts) Impaired Gait Yes (1 pt) Mobility Assist Device Used Yes (1 pt) Altered Elimination No (0 pt) Score/Fall Risk Level 3 or more points = High Risk Oriented to surroundings, Maintained a safe environment, Hourly rounding (assess needs \T\ fall precautionary measures) done. Abuse screen: Denies threats or abuse. Nutritional screening: No deficits noted. Tuberculosis screening: Assessment: 19:30 General: Appears uncomfortable, Behavior is calm, cooperative. Pain: Complains of pain rg5 in abdomen Pain currently is 10 out of 10 on a pain scale. Quality of pain is described as aching, Pain began 1 day ago. 19:30 Neuro: Level of Consciousness is awake, alert, obeys commands, Oriented to person, rg5 place, time. Cardiovascular: Patient's skin is warm and dry. Respiratory: Airway is patent Trachea midline Respiratory effort is even, unlabored, Respiratory pattern is regular, symmetrical. GI: Abdomen is round non-distended, Stools are reported to be diarrhea. Bowel sounds present X 4 quads. Abd is soft and non tender X 4 quads. : No signs and/or symptoms were reported regarding the genitourinary system. EENT: No deficits noted. Derm: Skin is fragile, with poor turgor Skin is dry, Skin is normal. 20:30 Reassessment: Patient and/or family updated on plan of care and expected duration. Pain rg5 level reassessed. Patient is alert, oriented x 3, equal unlabored respirations, skin warm/dry/pink. 21:00 Reassessment: Patient and/or family updated on plan of care and expected duration. Pain rg5 level reassessed. Patient is alert, oriented x 3, equal unlabored respirations, skin warm/dry/pink. Patient states symptoms have improved. 22:15 Reassessment: Patient and/or family updated on plan of care and expected duration. Pain rg5 level reassessed. Patient is alert, oriented x 3, equal unlabored respirations, skin warm/dry/pink. Patient states feeling better. 23:22 Reassessment: Patient appears in no apparent distress at this time. No changes from lg3 previously documented assessment. Patient and/or family updated on plan of care and expected duration. Pain level reassessed. Patient is alert, oriented x 3, equal unlabored respirations, skin warm/dry/pink. Pain: Pain radiates to chest and abdomen. Respiratory: Reports shortness of breath Breath sounds are clear bilaterally. 23:23 Cardiovascular: Rhythm is sinus tachycardia. lg3 Vital Signs: 19:20 BP 168 / 113; Pulse 92; Resp 22; Temp 96.8(TE); Pulse Ox 95% on R/A; MAP 129 mmHg; tm6 Weight 77.11 kg; Height 5 ft. 4 in. ; Pain 10/10; 20:20 BP 154 / 103; Pulse 92; Resp 19; Temp 99.4; Weight 77.11 kg; Height 5 ft. 4 in. ; Pain rg5 10/10; 21:25 BP 156 / 102; Pulse 105; Resp 18; Pulse Ox 95% on R/A; Pain 10/10; rg5 23:23 lg3 20:20 Body Mass Index 29.18 (77.11 kg, 162.56 cm) rg5 19:20 Pain Scale: Adult tm6 20:20 Pain Scale: Adult rg5 21:25 Pain Scale: Adult rg5 23:23 pt refused vitals prior to DC lg3 ED Course: 19:19 Patient arrived in ED. gm2 19:22 Triage completed. tm6 19:22 Arm band placed on left wrist. tm6 19:30 Patient has correct armband on for positive identification. Placed in gown. Bed in low rg5 position. Side rails up X 1. Client placed on continuous cardiac and pulse oximetry monitoring. NIBP monitoring applied. 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 19:30 No provider procedures requiring assistance completed. Patient maintains SpO2 rg5 saturation greater than 95% on room air. 20:13 Heladio Collins MD is Attending Physician. sp3 20:20 Angelo Sanchez, RN is Primary Nurse. rg5 21:08 XRAY Chest (1 view) In Process Unspecified. EDMS 23:23 Patient did not have IV access during this emergency room visit. lg3 02/22 02:34 Provided Education on:. rg5 Administered Medications: 02/21 20:52 CANCELLED (): ipratropiumaerosol 0.5 mg Inhalation once sp3 20:53 CANCELLED (): ns 0.9% 1000 ml IV at 75 ml/hr continuous sp3 20:53 CANCELLED (): levalbuterol1.25 mg Inhalation once sp3 Medication: 19:30 VIS not applicable for this client. rg5 Outcome: 22:42 Discharge ordered by . sp3 23:23 Discharged to home via wheelchair, lg3 23:23 Condition: stable 23:23 Discharge instructions given to patient, Instructed on discharge instructions, follow up and referral plans. Demonstrated understanding of instructions, follow-up care, 23:24 Patient left the ED. lg3 Signatures: Dispatcher [employer] Christine Hand, RN RN lg3 Heladio Collins MD MD sp3 Karyn Philippe 2 Romi Mcneil RN RN tm6 Angelo Sanchez, ASHLEY RN rg5
--- NOTE | 2024-02-22 22:43 | EDPHYS ---
Physician Documentation [facility] Name: Marjan Kolb Age: 69 yrs Sex: Female : 1955 Arrival Date: 02/22/2024 Time: 18:53 Bed [id number] Private MD: ED Physician Heladio Collins HPI: 02/21 20:23 This 69 yrs old Female presents to ER via EMS with complaints of Shortness Of Breath. sp3 20:23 69-year-old female well-known to the ED with cardiac history, about maybe half a sp3 centimeter on the left COPD, CHF, bipolar disease and seen 299 times in the ED here for recurrent symptoms. Patient denies fever, facial pain, neck pain, chest pain, abdominal pain, vomiting, diarrhea, rash, or any other signs or symptoms on ROS at this time.. Historical: - Allergies: 19:22 Azithromycin; tm6 19:22 Bactrim; tm6 19:22 butorphanol; tm6 19:22 Fentanyl; tm6 19:22 Reglan; tm6 19:22 Sulfa (Sulfonamide Antibiotics); tm6 19:22 TRIMETHOPRIM; tm6 - PMHx: 19:22 a-fib; a-fib; angina pectoris; Bipolar disorder; Bipolar disorder; COPD; esophageal tm6 varices; esophageal varices; Hepatitis; HIV; Hypercholesterolemia; Hypertensive disorder; Migraine; NSTEMI; - PSHx: 19:22 heart surgery (a-fi); Stented artery; tm6 - Immunization history:: Client reports receiving the 2nd dose of the Covid vaccine. - Infectious Disease History:: Denies. - Social history:: Smoking status: Patient denies any tobacco usage or history of. Patient/guardian denies using alcohol. ROS: 20:25 Constitutional: Negative for fever, chills, and weight loss, Eyes: Negative for injury, sp3 pain, redness, and discharge, Neck: Negative for injury, pain, and swelling, Cardiovascular: Negative for chest pain, palpitations, and edema, Abdomen/GI: Negative for abdominal pain, nausea, vomiting, diarrhea, and constipation, Back: Negative for injury and pain, MS/Extremity: Negative for injury and deformity, Skin: Negative for injury, rash, and discoloration, Neuro: Negative for headache, weakness, numbness, tingling, and seizure, Psych: Negative for depression, anxiety, suicide ideation, homicidal ideation, and hallucinations, Allergy/Immunology: Negative for hives, rash, and allergies, Endocrine: Negative for neck swelling, polydipsia, polyuria, polyphagia, and marked weight changes, Hematologic/Lymphatic: Negative for swollen nodes, abnormal bleeding, and unusual bruising, 20:25 All other systems are negative, Exam: 20:25 Constitutional: This is a well developed, well nourished patient who is awake, alert, sp3 and in no acute distress. Head/Face: Normocephalic, atraumatic. Eyes: Pupils equal round and reactive to light, extra-ocular motions intact. Lids and lashes normal. Conjunctiva and sclera are non-icteric and not injected. Cornea within normal limits. Periorbital areas with no swelling, redness, or edema. Neck: Trachea midline, no thyromegaly or masses palpated, and no cervical lymphadenopathy. Supple, full range of motion without nuchal rigidity, or vertebral point tenderness. No Meningismus. Chest/axilla: Normal chest wall appearance and motion. Nontender with no deformity. No lesions are appreciated. Cardiovascular: Regular rate and rhythm with a normal S1 and S2. No gallops, murmurs, or rubs. Normal PMI, no JVD. No pulse deficits. Respiratory: Lungs have equal breath sounds bilaterally, clear to auscultation and percussion. No rales, rhonchi or wheezes noted. No increased work of breathing, no retractions or nasal flaring. Abdomen/GI: Soft, non-tender, with normal bowel sounds. No distension or tympany. No guarding or rebound. No evidence of tenderness throughout. Back: No spinal tenderness. No costovertebral tenderness. Full range of motion. Skin: Warm, dry with normal turgor. Normal color with no rashes, no lesions, and no evidence of cellulitis. MS/ Extremity: Pulses equal, no cyanosis. Neurovascular intact. Full, normal range of motion. Neuro: Awake and alert, GCS 15, oriented to person, place, time, and situation. Cranial nerves II-XII grossly intact. Motor strength 5/5 in all extremities. Sensory grossly intact. Cerebellar exam normal. Normal gait. Psych: Awake, alert, with orientation to person, place and time. Behavior, mood, and affect are within normal limits. 22:41 ECG was reviewed by the Attending Physician. EKG demonstrates sinus tachycardia at 106 sp3 bpm with nonspecific diffuse ST slightly changes without evidence of acute ischemia and not significantly different than prior EKG. Vital Signs: 19:20 BP 168 / 113; Pulse 92; Resp 22; Temp 96.8(TE); Pulse Ox 95% on R/A; MAP 129 mmHg; tm6 Weight 77.11 kg; Height 5 ft. 4 in. ; Pain 10/10; 20:20 BP 154 / 103; Pulse 92; Resp 19; Temp 99.4; Weight 77.11 kg; Height 5 ft. 4 in. ; Pain rg5 10/10; 21:25 BP 156 / 102; Pulse 105; Resp 18; Pulse Ox 95% on R/A; Pain 10/10; rg5 23:23 lg3 20:20 Body Mass Index 29.18 (77.11 kg, 162.56 cm) rg5 19:20 Pain Scale: Adult tm6 20:20 Pain Scale: Adult rg5 21:25 Pain Scale: Adult rg5 23:23 pt refused vitals prior to DC lg3 MDM: 20:14 Patient medically screened. sp3 20:25 Data reviewed: vital signs, nurses notes, old medical records, lab test result(s), EKG, sp3 radiologic studies. ED course: 69-year-old female with cardiac history with shortness of breath. Differential diagnosis includes COPD, CHF, ACS, malingering, among others. Workup pending and disposition pending workup and patient course of probable discharge if negative.. 22:41 ED course: Troponin negative BNP elevated at 5000 in the typical range. Patient sp3 demanded pain medication and when we told her it was not clinically indicated patient got upset and walked out of the ER. Will place his and inform discharge as she knew our recommendations.. 02/21 20:09 Order name: Basic Metabolic Panel; Complete Time: 22:40 [facility] 02/21 20:09 Order name: LFT's; Complete Time: 22:40 [facility] 02/21 20:09 Order name: Magnesium; Complete Time: 22:40 [facility] 02/21 20:09 Order name: NT PRO-BNP; Complete Time: 22:40 [facility] 02/21 20:09 Order name: PT-INR; Complete Time: 21:57 [facility] 02/21 20:09 Order name: Troponin HS; Complete Time: 22:40 [facility] 02/21 20:09 Order name: XRAY Chest (1 view); Complete Time: 21:57 [facility] 02/21 20:10 Order name: Cardiac monitoring; Complete Time: 21:12 [facility] 02/21 20:10 Order name: EKG - Nurse/Tech; Complete Time: 21:16 [facility] 02/21 20:10 Order name: IV Saline Lock; Complete Time: 21:13 [facility] 02/21 20:10 Order name: Labs collected and sent; Complete Time: 21:13 [facility] 02/21 20:10 Order name: O2 Per Protocol; Complete Time: 21:13 [facility] 02/21 20:10 Order name: O2 Sat Monitoring; Complete Time: 21:13 [facility] Administered Medications: 20:52 CANCELLED (MD): ipratropiumaerosol 0.5 mg Inhalation once sp3 20:53 CANCELLED (MD): ns 0.9% 1000 ml IV at 75 ml/hr continuous sp3 20:53 CANCELLED (MD): levalbuterol1.25 mg Inhalation once sp3 Disposition Summary: 02/22/24 22:42 Discharge Ordered Notes: Location: Home sp3 Condition: Stable sp3 Diagnosis - CHF exacerbation, dyspnea, shortness of breath sp3 Followup: sp3 - With: Private Physician - When: Upon discharge from the Emergency Department - Reason: Continuance of care Discharge Instructions: - Discharge Summary Sheet sp3 - Heart Failure Action Plan sp3 Forms: - Medication Reconciliation Form sp3 - Antibiotic Education sp3 - Prescription Opioid Use sp3 - Patient Portal Instructions sp3 - Leadership Thank You Letter sp3 Signatures: Dispatcher [employer] Justus Long MD MD cha Patel, Setul, MD MD sp3 Romi Mcneil RN RN tm6 Corrections: (The following items were deleted from the chart) 20:10 20:10 BASIC METABOLIC PANEL+C.LAB.BRZ ordered. EDMS EDMS 20:10 20:10 CBC+H.LAB.BRZ ordered. EDMS EDMS 20:10 20:10 HEPATIC FUNCTION+C.LAB.BRZ ordered. EDMS EDMS 20:10 20:10 MAGNESIUM+C.LAB.BRZ ordered. EDMS EDMS 20:10 20:10 PROBNP+C.LAB.BRZ ordered. EDMS EDMS 20:10 20:10 PROTIME (+INR)+COAG.LAB.BRZ ordered. EDMS EDMS 20:10 20:10 Troponin High Sensitivity+C.LAB.BRZ ordered. EDMS EDMS 20:10 20:10 Chest Single View+RAD.RAD.BRZ ordered. EDMS EDMS 20:52 20:10 Ipratropium Inhalation Aerosol 0.5 mg Inhalation once ordered. thomas sp3 20:53 20:10 NS 0.9% IV 1000 ml IV at 75 ml/hr continuous ordered. thomas sp3 20:53 20:10 Levalbuterol Inhalation 1.25 mg Inhalation once ordered. thomas sp3
[2024-02-23 15:54] VITALS: O2SAT 95
[2024-02-23 15:55] VITALS: TEMP 99.4
[2024-02-23 15:57] VITALS: BP 156/102
--- NOTE | 2024-02-24 16:39 | EKG ---
Test Date: 2024-02-22 Test Time: 21:02:39 Software Engineering Specialist: CANDELARIO MEASUREMENT RESULTS: Intervals: Rate: 106 [place]: 188 QRSD: 86 QT: 360 QTc: 478 [place]: P: 41 [place]: 188 QRS: 9 T: 174 INTERPRETIVE STATEMENTS: Sinus tachycardia with premature supraventricular complexes ST & T wave abnormality, consider inferolateral ischemia Abnormal ECG Compared to ECG 02/19/2024 18:38:56 Atrial premature complex(es) now present Sinus bradycardia no longer present ST (T wave) deviation still present Possible ischemia still present Electronically Signed On 02-24-24 16:33:58 CDT by Mike Lund
== END 2024-02-22 23:24 | disposition home or self-care (01) ==
LOC: ER 18:53
DX: I50.9 Heart failure, unspecified (principal); I48.91 Unspecified atrial fibrillation; J44.9 Chronic obstructive pulmonary disease, unspecified; E78.00 Pure hypercholesterolemia, unspecified; B20 Human immunodeficiency virus [HIV] disease; I25.2 Old myocardial infarction; G43.909 Migraine, unspecified, not intractable, without status migrainosus; I10 Essential (primary) hypertension; Z88.2 Allergy status to sulfonamides; Z88.1 Allergy status to other antibiotic agents; Z88.3 Allergy status to other anti-infective agents
CPT/HCPCS: 36415; 71045; 80048; 80076; 83735; 83880; 84484; 85610; 93005; 99284

== ENCOUNTER 2024-02-24 21:36 | Emergency (ER) | payer OTHER ==
[2024-02-24] MEDS ORDERED: ALBUTEROL 2.5 MG/3 ML NEB SOL ONE (22:00)
[2024-02-24] MEDS ORDERED: predniSONE 20 MG TAB ONE (22:00)
--- NOTE | 2024-02-24 23:04 | ER ---
Nurse's Notes [facility] Name: Marjan Kolb Age: 69 yrs Sex: Female : 1955 Arrival Date: 02/24/2024 Time: 21:36 Bed 4 Private MD: Diagnosis: COPD/ Chronic obstructive pulmonary disease with (acute) exacerbation;Acute dyspnea, noncardiac chest pain Presentation: 02/23 21:30 Chief complaint: Patient states: PT C/O OF FEELING SOB SINCE YESTERDAY AND BEGAN HAVING br2 LEFT CHEST WALL PAIN THIS AFTERNOON. Coronavirus screen: Client denies travel out of the [place] in the last 14 days. Ebola Screen: Patient negative for fever greater than or equal to 101.5 degrees Fahrenheit, and additional compatible Ebola Virus Disease symptoms Patient denies exposure to infectious person. Initial Sepsis Screen: Does the patient meet any 2 criteria? RR > 20 per min. Does the patient have a suspected source of infection? No. Patient's initial sepsis screen is negative. Risk Assessment: Do you want to hurt yourself or someone else? Patient reports no desire to harm self or others. Onset of symptoms was February 23, 2024. 21:30 Method Of Arrival: EMS: [facility] br2 21:30 Acuity: BLAYNE 3 br2 Triage Assessment: 21:30 General: Appears uncomfortable, slender, Behavior is cooperative, quiet. Pain: br2 Complains of pain in anterior aspect of left upper chest Pain currently is 10 out of 10 on a pain scale. Quality of pain is described as aching, Pain began 1 day ago. EENT: No signs and/or symptoms were reported regarding the EENT system. Neuro: Gonzalez Agitation-Sedation Scale (RASS): 0 - Alert and Calm Level of Consciousness is awake, alert, obeys commands, confused, Oriented to person, place, time. Cardiovascular: Reports chest pain, shortness of breath, Heart tones present Capillary refill < 3 seconds. Respiratory: Reports shortness of breath Breath sounds are clear Breath sounds are diminished bilaterally. GI: No signs and/or symptoms were reported involving the gastrointestinal system. Abdomen is flat. : No signs and/or symptoms were reported regarding the genitourinary system. Derm: No signs and/or symptoms reported regarding the dermatologic system. Skin is intact, Skin is dry, Skin is normal, Skin temperature is warm. Musculoskeletal: No signs and/or symptoms reported regarding the musculoskeletal system. Circulation, motion, and sensation intact. Capillary refill < 3 seconds, Range of motion: limited in all extremities. Historical: - Allergies: 22:54 Azithromycin; sp4 - PMHx: 22:54 a-fib; angina pectoris; NSTEMI; Migraine; sp4 - Immunization history:: Adult Immunizations not up to date. - Infectious Disease History:: Denies. - Social history:: Smoking status: Patient reports the use of cigarette tobacco products, denies chronic smoking, but will smoke occasionally. - Family history:: not pertinent. Screenin:30 [facility] ED Fall Risk Assessment (Adult) History of falling in the last 3 months, br2 including since admission No falls in past 3 months (0 pts) Confusion or Disorientation No (0 pts) Intoxicated or Sedated No (0 pts) Impaired Gait No (0 pts) Mobility Assist Device Used No (0 pt) Altered Elimination No (0 pt) Score/Fall Risk Level 3 or more points = High Risk. Abuse screen: Denies threats or abuse. Denies injuries from another. Nutritional screening: No deficits noted. Tuberculosis screening: No symptoms or risk factors identified. Assessment: 21:30 Reassessment: SEE TRIAGE ASSESSMENT. br2 23:06 Reassessment: PT ASKING FOR PAIN MEDS...DR RANDHAWA NOTIFED. PT REFUSED TYLENOL AND br2 IBUPROFEN. Patient states feeling better. Patient states symptoms have improved. 23:28 Reassessment: PT REQUESTED THAN I CALL HER TO PICK HER UP. CALLED APPROX 10 br2 TIMES AND GOING STRAIGHT TO VOICE MAIL. PT REQUEST I CALL A [facility]AXI FOR HER. ETA 2340. Vital Signs: 21:30 BP 108 / 96; Pulse 78; Resp 28 S; Temp 98.8(O); Pulse Ox 100% on 2 lpm NC; Pain 10/10; br2 22:00 BP 108 / 93; Pulse 66; Resp 25 S; Pulse Ox 100% on 2 lpm NC; br2 23:00 BP 139 / 104; Pulse 68; Resp 21; Pulse Ox 100% on 2 lpm NC; br2 21:30 Pain Scale: Adult br2 Crystal Coma Score: 02/24 04:51 Eye Response: spontaneous(4). Motor Response: obeys commands(6). Verbal Response: sp4 oriented(5). Total: 15. ED Course: 02/23 21:30 Arm band placed on right wrist. br2 21:30 Patient has correct armband on for positive identification. Bed in low position. Call br2 light in reach. Side rails up X 1. Provided Education on: PLAN OF CARE. Client placed on continuous cardiac and pulse oximetry monitoring. NIBP monitoring applied. Door closed. Noise minimized. 21:39 Patient arrived in ED. jj6 21:40 Dion Randhawa MD is Attending Physician. sp4 21:40 Catherine Zaman, RN is Primary Nurse. br2 21:46 Triage completed. br2 23:42 No provider procedures requiring assistance completed. Patient did not have IV access br2 during this emergency room visit. Administered Medications: 22:05 Drug: Albuterol Inhalation 2.5 mg Inhalation once Route: Inhalation; br2 22:39 Follow up: Response: No adverse reaction br2 22:06 Drug: predniSONE PO 60 mg PO once Route: PO; br2 22:39 Follow up: Response: No adverse reaction br2 23:06 Not Given (Patient Refused): [id number] mg PO once br2 23:06 Not Given (Patient Refused): [id number] mg PO once br2 Medication: 23:42 VIS not applicable for this client. br2 Outcome: 23:03 Discharge ordered by . sp4 23:42 Discharged to home ambulatory, br2 23:42 Condition: improved 23:42 Discharge instructions given to patient, Instructed on discharge instructions, medication usage, Demonstrated understanding of instructions, follow-up care, medications, Prescriptions given X 1, 23:46 Patient left the ED. br2 Signatures: Karen Montiel jDion Gutiérrez MD MD sp4 Catherine Zaman, RN RN br2 Corrections: (The following items were deleted from the chart) 22:55 22:54 PMHx: Bipolar disorder; sp4 sp4 22:55 22:54 PMHx: COPD; sp4 sp4 22:55 22:54 PMHx: esophageal varices; sp4 sp4 22:55 22:54 PMHx: Hepatitis; sp4 sp4 22:55 22:54 PMHx: HIV; sp4 sp4 22:55 22:54 PMHx: Hypercholesterolemia; sp4 sp4 : 22:54 PMHx: Hypertensive disorder; sp4 sp4 22:54 PSHx: heart surgery; sp4 sp4 22:54 PSHx: Stented artery; sp4 sp4 23:12 22:00 BP 108 / 93; Pulse 66bpm; Resp 25bpm; Spontaneous; Pulse Ox 100% RA; br2 br2 23: 23:26 Reassessment: PT ASKING FOR PAIN MEDS...DR RANDHAWA NOTIFED. PT REFUSED TYLENOL br2 AND IBUPROFEN. Patient states feeling better. Patient states symptoms have improved. br2
--- NOTE | 2024-02-24 23:04 | EDPHYS ---
Physician Documentation [facility] Name: Marjan Kolb Age: 69 yrs Sex: Female : 1955 Arrival Date: 02/24/2024 Time: 21:36 Bed 4 Private MD: ED Physician Dion Randhawa HPI: 02/23 21:41 This 69 yrs old Female presents to ER via Unassigned with complaints of sp4 Shortness Of Breath. 22:53 69-year-old female with history of coronary artery disease and COPD also HIV presents sp4 with acute onset shortness of breath and chest pain by EMS. Has reported stable vital signs.. Historical: - Allergies: 22:54 Azithromycin; sp4 - PMHx: 22:54 a-fib; angina pectoris; NSTEMI; Migraine; sp4 - Immunization history:: Adult Immunizations not up to date. - Infectious Disease History:: Denies. - Social history:: Smoking status: Patient reports the use of cigarette tobacco products, denies chronic smoking, but will smoke occasionally. - Family history:: not pertinent. ROS: 02/24 04:51 Constitutional: Negative for fever, chills, and weight loss, positive today for chest sp4 pain and shortness of breath All other systems are negative, Exam: 04:51 Constitutional: This is a well developed, well nourished patient who is awake, alert, sp4 and in no acute distress. Patient has signs of moderate physical debility Head/Face: Normocephalic, atraumatic. Eyes: Pupils equal round and reactive to light, extra-ocular motions intact. Lids and lashes normal. Conjunctiva and sclera are not injected. Cornea within normal limits. Periorbital areas with no swelling, redness, or edema. ENT: Nares patent. No nasal discharge, no septal abnormalities noted. Tympanic membranes are normal and external auditory canals are clear. Oropharynx with no redness, swelling, or masses, exudates, or evidence of obstruction, uvula midline. Mucous membranes moist. Neck: Trachea midline, no thyromegaly or masses palpated, and no cervical lymphadenopathy. Supple, full range of motion without nuchal rigidity, or vertebral point tenderness. Chest/axilla: Normal chest wall appearance and motion. Nontender with no deformity. No lesions are appreciated. Cardiovascular: Regular rate and rhythm with a normal S1 and S2. No gallops, murmurs, or rubs. Normal PMI, no JVD. No pulse deficits. Respiratory: Lungs have equal breath sounds bilaterally, clear to auscultation and percussion. No rales, rhonchi or wheezes noted. No increased work of breathing, no retractions or nasal flaring. Abdomen/GI: Soft, with normal bowel sounds. No distension or tympany. No guarding or rebound. No evidence of tenderness throughout. Back: No spinal tenderness. No costovertebral tenderness. Skin: Warm, dry with normal turgor. Normal color with no rashes, no lesions, and no evidence of cellulitis. MS/ Extremity: Pulses equal, no cyanosis. Neurovascular intact. Full, normal range of motion. Neuro: Awake and alert, GCS 15, oriented to person, place, time, and situation. Cranial nerves II-XII grossly intact. Motor strength 5/5 in all extremities. Sensory grossly intact. Psych: Awake, alert, with orientation to person, place and time. Behavior, mood, and affect are within normal limits 05:01 ECG was reviewed by the Attending Physician. EG at 2217 normal sinus rhythm rate 70, sp4 left ventricular hypertrophy, no changes from prior EKG Vital Signs: 02/23 21:30 BP 108 / 96; Pulse 78; Resp 28 S; Temp 98.8(O); Pulse Ox 100% on 2 lpm NC; Pain 10/10; br2 22:00 BP 108 / 93; Pulse 66; Resp 25 S; Pulse Ox 100% on 2 lpm NC; br2 23:00 BP 139 / 104; Pulse 68; Resp 21; Pulse Ox 100% on 2 lpm NC; br2 21:30 Pain Scale: Adult br2 Crystal Coma Score: 02/24 04:51 Eye Response: spontaneous(4). Motor Response: obeys commands(6). Verbal Response: sp4 oriented(5). Total: 15. MDM: 02/23 23:03 Patient medically screened. sp4 02/24 05:02 Differential diagnosis: Anxiety Reaction asthma, Bronchitis pneumonia, Psychogenic. sp4 Data reviewed: vital signs, nurses notes, EMS record, old medical records, EKG. ED course: Based on the study of prior medical history and recent medical record patient is stable for discharge home. . 02/23 21:42 Order name: EKG; Complete Time: 21:42 sp4 02/23 21:42 Order name: EKG - Nurse/Tech; Complete Time: 22:39 sp4 EC:01 Rate is 70 beats/min. Rhythm is regular, Normal Sinus Rhythm. QRS [place] is Normal. PA sp4 interval is normal. QRS interval is normal. QT interval is normal. T waves are Inverted in leads II, V4, V5, V6. Clinical impression: No evidence of ischemia. Interpreted by me. Reviewed by me. Administered Medications: 02/23 22:05 Drug: Albuterol Inhalation 2.5 mg Inhalation once Route: Inhalation; br2 22:39 Follow up: Response: No adverse reaction br2 22:06 Drug: predniSONE PO 60 mg PO once Route: PO; br2 22:39 Follow up: Response: No adverse reaction br2 23:06 Not Given (Patient Refused): [id number] mg PO once br2 23:06 Not Given (Patient Refused): [id number] mg PO once br2 Disposition Summary: 02/24/24 23:03 Discharge Ordered Notes: Location: Home sp4 Problem: new sp4 Symptoms: have improved sp4 Condition: Stable sp4 Diagnosis - COPD/ Chronic obstructive pulmonary disease with (acute) exacerbation sp4 - Acute dyspnea, noncardiac chest pain sp4 Followup: sp4 - With: Private Physician - When: 7 - 10 days - Reason: Recheck today's complaints Discharge Instructions: - Discharge Summary Sheet sp4 - Chronic Obstructive Pulmonary Disease sp4 Forms: - Patient Portal Instructions sp4 Prescriptions: - Ventolin HFA 90 mcg/actuation Inhalation HFA Aerosol Inhaler - inhale 2 inhalation INHALATION route every 6 hours Inhaled PRN Q 6 hours for sp4 dyspnea or wheezing; 1 unit; Refills: 0, Product Selection Permitted - Prednisone 20 mg Oral Tablet - take 2 tablets ORAL route once daily for 5 days; 10 tablet; Refills: 0, Product sp4 Selection Permitted Signatures: Dion Randhawa MD MD sp4 Catherine Zaman RN RN br2 Corrections: (The following items were deleted from the chart) 22:55 22:54 PMHx: Bipolar disorder; sp4 sp4 22:55 22:54 PMHx: COPD; sp4 sp4 22:55 22:54 PMHx: esophageal varices; sp4 sp4 22:54 PMHx: Hepatitis; sp4 sp4 22:54 PMHx: HIV; sp4 sp4 22:54 PMHx: Hypercholesterolemia; sp4 sp4 : 22:54 PMHx: Hypertensive disorder; sp4 sp4 : 22:54 PSHx: heart surgery; sp4 sp4 22:54 PSHx: Stented artery; sp4 sp4
[2024-02-24 23:56] VITALS: O2SAT 100
[2024-02-24 23:58] VITALS: BP 139/104
--- NOTE | 2024-02-27 11:59 | EKG ---
Test Date: 2024-02-24 Test Time: 22:17:49 Auto Transmission Technician: CHINO MEASUREMENT RESULTS: Intervals: Rate: 70 [place]: QRSD: 94 QT: 412 QTc: 444 [place]: P: [place]: QRS: 38 T: 181 INTERPRETIVE STATEMENTS: Accelerated Junctional rhythm Left ventricular hypertrophy with repolarization abnormality Abnormal ECG Compared to ECG 02/22/2024 21:02:39 Accelerated junctional rhythm now present Left ventricular hypertrophy now present Early repolarization now present Sinus tachycardia no longer present Atrial premature complex(es) no longer present ST (T wave) deviation no longer present Possible ischemia no longer present Electronically Signed On 02-27-24 11:53:56 CDT by Tommy Da Silva
== END 2024-02-24 23:46 | disposition home or self-care (01) ==
LOC: ER 21:36
DX: J44.1 Chronic obstructive pulmonary disease with (acute) exacerbation (principal); R06.00 Dyspnea, unspecified; I48.91 Unspecified atrial fibrillation; F17.210 Nicotine dependence, cigarettes, uncomplicated; Z21 Asymptomatic human immunodeficiency virus [HIV] infection status
CPT/HCPCS: 93005; 99284; J7512; J7613

== ENCOUNTER 2024-03-14 09:48 | Emergency (ER) | payer OTHER ==
[2024-03-14 11:55] LABS: PT Prothrombin Time 14.1 SECONDS (9.4-12.5); Protime INR 1.27
[2024-03-14 12:10] LABS: AST/SGOT 13 U/L (15-37); Albumin 2.4 g/dL (3.4-5.0); Albumin/Globulin Ratio 0.6 (1.1-1.8); Alkaline Phosphatase 63 U/L (45-117); Anion Gap 8.4 mEq/L (5.0-15.0); BUN Blood Urea Nitrogen 14 mg/dL (7-18); Bicarbonate 28 mEq/L (21-32); Bilirubin Direct 0.2 mg/dL (0-0.2); Bilirubin Indirect, Calculated 0.3 mg/dL (0.2-0.8); Bilirubin Total 0.5 mg/dL (0.2-1.0); Globulin 4.2 g/dL (2.3-3.5); Glomerular Filtration Rate 57 ml/min (=/>90); Glucose Level 100 mg/dL (74-106); Lipase 33 U/L (13-75); Magnesium 2.2 mg/dL (1.6-2.4); NT PRO-BNP 2193 pg/mL (<125); Potassium 3.4 mEq/L (3.5-5.1); Protein, Total 6.6 g/dL (6.4-8.2); Sodium Level 138 mEq/L (136-145); Troponin High Sensitivity 10.6 pg/mL (<58.9)
[2024-03-14 12:12] LABS: ALT/SGPT < 14 U/L (13-56)
[2024-03-14 12:13] LABS: Absolute Lymphocytes (CBC) 0.7 K/uL (0.7-4.9); Absolute Monocytes 0.6 K/uL (0.1-1.3); Basophils % 0.2 % (0-1.3); Eosinophils % 0.8 % (0-4.4); Hematocrit 28.7 % (36.0-45.0); Hemoglobin 9.3 g/dL (12.0-15.0); Lymphocytes % 12.8 % (15.3-44.8); MCH 25.5 pg (27.0-35.0); MCHC 32.3 g/dL (32.0-36.0); MCV 78.9 fL (80-100); MPV 7.2 fL (7.6-11.3); Monocytes % 11.5 % (3.3-12.3); Neutrophils % 74.7 % (41.7-73.7); Platelets 176 thou/uL (152-406); RBC Red Blood Cell Count 3.63 M/uL (3.86-4.86); Red Cell Distribution Width 18.2 % (12.1-15.2)
--- NOTE | 2024-03-14 13:28 | EDPHYS ---
Physician Documentation [facility] Name: Marjan Kolb Age: 69 yrs Sex: Female : 1955 Arrival Date: 03/14/2024 Time: 09:48 Bed 8 Private MD: SHEELA Physician Justus Kolb HPI: 03/14 13:20 This 69 yrs old Female presents to ER via EMS with complaints of Abdominal thomas Pain, Diarrhea. 13:20 The patient presents to the emergency department with vomiting, diarrhea. thomas 13:21 Trauma demographics: County: The injury occurred in [place] Location of Injury: The thomas injury occurred at home. Mechanism of injury: Fall: the patient fell from a standing position. Associated injuries: The patient sustained coccyx. Onset: The symptoms/episode began/occurred this morning. Possible causes: unknown. Associated signs and symptoms: The patient has no apparent associated signs or symptoms. Severity of symptoms: At their worst the symptoms were moderate in the emergency department the symptoms have improved moderately. Historical: - Allergies: 10:15 Azithromycin; hb - PMHx: 10:15 a-fib; angina pectoris; NSTEMI; Migraine; hb - Immunization history:: Adult Immunizations up to date. - Infectious Disease History:: Denies. - Social history:: Smoking status: Patient denies any tobacco usage or history of. - Family history:: not pertinent. ROS: 13:21 Constitutional: Negative for fever, chills, and weight loss, Eyes: Negative for injury, thomas pain, redness, and discharge, ENT: Negative for injury, pain, and discharge, Neck: Negative for injury, pain, and swelling, Cardiovascular: Negative for chest pain, palpitations, and edema, Respiratory: Negative for shortness of breath, cough, wheezing, and pleuritic chest pain, : Negative for injury, bleeding, discharge, and swelling, MS/Extremity: Negative for injury and deformity, Skin: Negative for injury, rash, and discoloration, Neuro: Negative for headache, weakness, numbness, tingling, and seizure, Psych: Negative for depression, anxiety, suicide ideation, homicidal ideation, and hallucinations, Allergy/Immunology: Negative for hives, rash, and allergies, Endocrine: Negative for neck swelling, polydipsia, polyuria, polyphagia, and marked weight changes, Hematologic/Lymphatic: Negative for swollen nodes, abnormal bleeding, and unusual bruising, 13:21 Abdomen/GI: Positive for diarrhea, 13:21 Back: Positive for decreased range of motion, pain at rest, pain with movement, of the sacrum, Exam: 13:21 Constitutional: This is a well developed, well nourished patient who is awake, alert, thomas and in no acute distress. Head/Face: Normocephalic, atraumatic. Eyes: Pupils equal round and reactive to light, extra-ocular motions intact. Lids and lashes normal. Conjunctiva and sclera are non-icteric and not injected. Cornea within normal limits. Periorbital areas with no swelling, redness, or edema. ENT: Nares patent. No nasal discharge, no septal abnormalities noted. Tympanic membranes are normal and external auditory canals are clear. Oropharynx with no redness, swelling, or masses, exudates, or evidence of obstruction, uvula midline. Mucous membranes moist. Neck: Trachea midline, no thyromegaly or masses palpated, and no cervical lymphadenopathy. Supple, full range of motion without nuchal rigidity, or vertebral point tenderness. No Meningismus. Chest/axilla: Normal chest wall appearance and motion. Nontender with no deformity. No lesions are appreciated. Cardiovascular: Regular rate and rhythm with a normal S1 and S2. No gallops, murmurs, or rubs. Normal PMI, no JVD. No pulse deficits. Respiratory: Lungs have equal breath sounds bilaterally, clear to auscultation and percussion. No rales, rhonchi or wheezes noted. No increased work of breathing, no retractions or nasal flaring. Abdomen/GI: Soft, non-tender, with normal bowel sounds. No distension or tympany. No guarding or rebound. No evidence of tenderness throughout. Female : Normal external genitalia. Skin: Warm, dry with normal turgor. Normal color with no rashes, no lesions, and no evidence of cellulitis. MS/ Extremity: Pulses equal, no cyanosis. Neurovascular intact. Full, normal range of motion. Neuro: Awake and alert, GCS 15, oriented to person, place, time, and situation. Cranial nerves II-XII grossly intact. Motor strength 5/5 in all extremities. Sensory grossly intact. Cerebellar exam normal. Normal gait. Psych: Awake, alert, with orientation to person, place and time. Behavior, mood, and affect are within normal limits. 13:21 Back: pain, that is mild, ROM is normal, normal spinal alignment noted, CVA tenderness, is absent, vertebral tenderness, is not appreciated, muscle spasm, is appreciated in the left low back, left mid back, right mid back and right low back, Vital Signs: 09:58 BP 131 / 90; Pulse 63; Resp 16; Temp 99.1(O); Pulse Ox 99% on R/A; Pain 6/10; hb 11:21 BP 130 / 72; Pulse 64; Resp 15; Pulse Ox 96% on R/A; hb 12:37 BP 129 / 89; Pulse 68; Resp 16; Pulse Ox 99% on R/A; hb 09:58 Pain Scale: Adult hb MDM: 09:52 Medical Screening Exam initiated thomas 13:24 Differential diagnosis: Nonspecific abd pain, gastroenteritis. Data reviewed: vital thomas signs, nurses notes, lab test result(s), EKG, radiologic studies. Consideration of Admission/Observation Escalation of care including admission/observation considered. I considered the following discharge prescriptions or medication management in the emergency department Medications were administered in the Emergency Department. See MAR. Test considered but Not performed: X-ray: no pelvis xray , no coccyx xray. Historians other than the Patient: EMS: ems well informed. pt well informed. Care significantly affected by the following chronic conditions: Hypertension, Obesity, hiv, cp, angina, a fib. 03/14 09:53 Order name: Basic Metabolic Panel; Complete Time: 13:10 [facility] 03/14 09:53 Order name: CBC with Diff; Complete Time: 13:10 [facility] 03/14 09:53 Order name: LFT's; Complete Time: 13:10 [facility] 03/14 09:53 Order name: Magnesium; Complete Time: 13:10 [facility] 03/14 09:53 Order name: NT PRO-BNP; Complete Time: 13:10 [facility] 03/14 09:53 Order name: PT-INR; Complete Time: 13:10 [facility] 03/14 09:53 Order name: Troponin HS; Complete Time: 13:10 [facility] 03/14 09:53 Order name: Lipase; Complete Time: 13:10 [facility] 03/14 09:53 Order name: EKG; Complete Time: 09:53 [facility] 03/14 09:53 Order name: Cardiac monitoring; Complete Time: 10:49 [facility] 03/14 09:53 Order name: EKG - Nurse/Tech; Complete Time: 11:08 [facility] 03/14 09:53 Order name: Labs collected and sent; Complete Time: 10:49 [facility] 03/14 09:53 Order name: O2 Per Protocol; Complete Time: 10:49 [facility] 03/14 09:53 Order name: O2 Sat Monitoring; Complete Time: 10:49 [facility] 03/14 11:12 Order name: Labs - recollect needed: recollect all tubes; Complete Time: 11:53 bd Administered Medications: 13:48 Not Given (Other Intervention Used): ns 0.9% 500 ml IV at bolus once; to be given as a bp bolus over 30 minutes Disposition Summary: 03/14/24 13:27 Discharge Ordered Notes: Location: Home thomas Problem: new thomas Symptoms: have improved thomas Condition: Stable thomas Diagnosis - Fall on same level, unspecified thomas - Contusion of left back wall of thorax - coccyx thomas Followup: thomas - With: Private Physician - When: 2 - 3 days - Reason: Recheck today's complaints, Continuance of care, Re-evaluation by your physician Discharge Instructions: - Discharge Summary Sheet thomas - Contusion thomas - Fall Prevention in the Home, Adult thomas - Contusion, Tdla-en-Nuem thomas - Fall Prevention in the Home, Adult, [id number] thomas - Hypokalemia thomas Forms: - Medication Reconciliation Form thomas - Antibiotic Education thomas - Prescription Opioid Use thomas - Patient Portal Instructions thomas - Leadership Thank You Letter [facility] Signatures: Dispatcher [employer] EDMS Heydi Caldera Corey, MD MD cha Baxter, Heather, RN RN hb Peltier, Brian RN bp Corrections: (The following items were deleted from the chart) 13:05 09:53 Chest Single View+RAD.RAD.BRZ ordered. EDMS EDMS 13:48 09:53 IV Saline Lock ordered. [facility] bp
--- NOTE | 2024-03-14 13:28 | ER ---
Nurse's Notes [facility] Name: Marjan Kolb Age: 69 yrs Sex: Female : 1955 Arrival Date: 03/14/2024 Time: 09:48 Bed 8 Private MD: Diagnosis: Fall on same level, unspecified;Contusion of left back wall of thorax-coccyx Presentation: 03/14 09:58 Chief complaint: Left sided abdominal pain and diarrhea x 2 days. Coronavirus screen: hb At this time, the client does not indicate any symptoms associated with coronavirus-19. Ebola Screen: No symptoms or risks identified at this time. Initial Sepsis Screen: Does the patient meet any 2 criteria? No. Patient's initial sepsis screen is negative. Does the patient have a suspected source of infection? No. Patient's initial sepsis screen is negative. Risk Assessment: Do you want to hurt yourself or someone else? Patient reports no desire to harm self or others. Onset of symptoms was March 13, 2024. 09:58 Method Of Arrival: EMS: [facility] 09:58 Acuity: BLAYNE 3 hb 10:15 Transition of care: patient was received from another setting of care (long-term care facility), [facility]. Historical: - Allergies: 10:15 Azithromycin; hb - PMHx: 10:15 a-fib; angina pectoris; NSTEMI; Migraine; hb - Immunization history:: Adult Immunizations up to date. - Infectious Disease History:: Denies. - Social history:: Smoking status: Patient denies any tobacco usage or history of. - Family history:: not pertinent. Screenin:16 [facility] ED Fall Risk Assessment (Adult) History of falling in the last 3 months, hb including since admission No falls in past 3 months (0 pts) Confusion or Disorientation No (0 pts) Intoxicated or Sedated No (0 pts) Impaired Gait No (0 pts) Mobility Assist Device Used No (0 pt) Altered Elimination No (0 pt) Score/Fall Risk Level 0 - 2 = Low Risk Oriented to surroundings, Maintained a safe environment, Educated pt \T\ family on fall prevention, incl call for assistance when getting out of bed. Abuse screen: Denies threats or abuse. Denies injuries from another. Nutritional screening: No deficits noted. Tuberculosis screening: No symptoms or risk factors identified. Assessment: 10:16 General: Appears in no apparent distress. Behavior is calm, cooperative. Pain: Pain hb currently is 6 out of 10 on a pain scale. Neuro: Level of Consciousness is awake, alert, obeys commands, Oriented to person, place, time, situation. Cardiovascular: Patient's skin is warm and dry. Respiratory: Respiratory effort is even, unlabored, Respiratory pattern is regular, symmetrical. GI: Reports lower abdominal pain, upper abdominal pain, diarrhea, nausea. : No signs and/or symptoms were reported regarding the genitourinary system. EENT: No signs and/or symptoms were reported regarding the EENT system. Derm: Skin is pink, warm \T\ dry. Musculoskeletal: No signs and/or symptoms reported regarding the musculoskeletal system. 11:18 Reassessment: Inside lab called for blood draw. hb 12:37 Reassessment: Patient appears in no apparent distress at this time. Patient and/or hb family updated on plan of care and expected duration. Pain level reassessed. Patient is alert, oriented x 3, equal unlabored respirations, skin warm/dry/pink. 13:47 Reassessment: REPORT TO [facility] AT [facility], TRANSPORT PENDING. bp Vital Signs: 09:58 BP 131 / 90; Pulse 63; Resp 16; Temp 99.1(O); Pulse Ox 99% on R/A; Pain 6/10; hb 11:21 BP 130 / 72; Pulse 64; Resp 15; Pulse Ox 96% on R/A; hb 12:37 BP 129 / 89; Pulse 68; Resp 16; Pulse Ox 99% on R/A; hb 09:58 Pain Scale: Adult hb ED Course: 09:52 Patient arrived in ED. bd 09:52 Justus Kolb MD is Attending Physician. thomas 10:15 Triage completed. hb 10:15 Arm band placed on. hb 10:17 Patient has correct armband on for positive identification. Provided Education on: use hb of call light . 10:49 Basic Metabolic Panel Sent. hb 10:49 CBC with Diff Sent. hb 10:49 LFT's Sent. hb 10:49 Magnesium Sent. hb 10:49 NT PRO-BNP Sent. hb 10:49 PT-INR Sent. hb 10:49 Troponin HS Sent. hb 10:49 Lipase Sent. hb 11:08 EKG done, by ED staff, reviewed by Justus Kolb MD. hb 11:20 Tata Rivera, RN is Primary Nurse. hb 11:24 Radiology exam delayed due to pt wants pain meds before x-ray. 1 14:15 No provider procedures requiring assistance completed. IV discontinued, intact, iw bleeding controlled, No redness/swelling at site. Pressure dressing applied. Administered Medications: 13:48 Not Given (Other Intervention Used): ns 0.9% 500 ml IV at bolus once; to be given as a bp bolus over 30 minutes Medication: 10:16 VIS not applicable for this client. hb Outcome: 13:27 Discharge ordered by . thomas 14:14 Discharged to snf. iw 14:14 Condition: good 14:14 Discharge instructions given to patient, Instructed on discharge instructions, follow up and referral plans. Demonstrated understanding of instructions, follow-up care, 14:15 Patient left the ED. iw Signatures: Heydi Caldera Corey, MD MD [facility] Jacquelin Meier RN RN Tata Rivera, RN RN Carlos Eduardo Madison RN RN bp
[2024-03-14 18:44] VITALS: TEMP 99.1
[2024-03-14 18:46] VITALS: BP 129/89; O2SAT 99
--- NOTE | 2024-03-15 12:18 | EKG ---
Test Date: 2024-03-14 Test Time: 11:01:06 Disposal Worker: CARLOS MEASUREMENT RESULTS: Intervals: Rate: 64 IA: 198 QRSD: 92 QT: 442 QTc: 455 [place]: P: 50 IA: 198 QRS: 37 T: 215 INTERPRETIVE STATEMENTS: Normal sinus rhythm ST & T wave abnormality, consider inferior ischemia ST & T wave abnormality, consider anterolateral ischemia Abnormal ECG Compared to ECG 03/14/2024 10:55:22 Atrial fibrillation no longer present Ventricular premature complex(es) no longer present ST (T wave) deviation still present Possible ischemia still present Electronically Signed On 03-15-24 12:14:39 CDT by Tommy Da Silva
--- NOTE | 2024-03-15 12:18 | EKG ---
Test Date: 2024-03-14 Test Time: 10:55:22 Resource Economist: CARLOS MEASUREMENT RESULTS: Intervals: Rate: 63 VT: QRSD: 90 QT: 440 QTc: 450 [place]: P: VT: QRS: 35 T: 200 INTERPRETIVE STATEMENTS: Poor data quality, interpretation may be adversely affected Atrial fibrillation with premature ventricular or aberrantly conducted complexes ST & T wave abnormality, consider inferior ischemia ST & T wave abnormality, consider anterolateral ischemia Abnormal ECG Compared to ECG 02/24/2024 22:17:49 Ventricular premature complex(es) now present ST (T wave) deviation now present Possible ischemia now present Accelerated junctional rhythm no longer present Left ventricular hypertrophy no longer present Early repolarization no longer present Electronically Signed On 03-15-24 12:14:46 CDT by Tommy Da Silva
== END 2024-03-14 14:15 | disposition home or self-care (01) ==
LOC: ER 09:48
DX: S20.222A Contusion of left back wall of thorax, initial encounter (principal); W18.30XA Fall on same level, unspecified, initial encounter; R19.7 Diarrhea, unspecified; I48.91 Unspecified atrial fibrillation
CPT/HCPCS: 36415; 80048; 80076; 83690; 83735; 83880; 84484; 85025; 85610; 93005

== ENCOUNTER 2024-03-22 14:35 | Emergency (ER) | payer OTHER ==
[2024-03-22] MEDS ORDERED: IPRATROPIUM BROM 0.5MG/2.5ML ONE (14:57)
[2024-03-22] MEDS ORDERED: ALBUTEROL 2.5 MG/3 ML NEB SOL ONE (14:57)
[2024-03-22] MEDS ORDERED: predniSONE 20 MG TAB ONE (14:57)
--- NOTE | 2024-03-22 15:24 | RAD REPORT ---
Procedure: Chest Single View HISTORY: Shortness of breath COMPARISON: February 22, 2024 FINDINGS: Probable [id number] left pleural effusion with basilar atelectasis Right lung appears clear of acute infiltrate. Heart remains enlarged
--- NOTE | 2024-03-22 16:07 | EDPHYS ---
Physician Documentation [facility] Name: Marjan Kolb Age: 69 yrs Sex: Female : 1955 Arrival Date: 03/22/2024 Time: 14:35 Bed 8 Private MD: ED Physician Yayo August HPI: 03/22 14:52 This 69 yrs old Female presents to ER via EMS with complaints of chronic sob. ec2 14:53 Patient arrives today for shortness of breath. No changes per baseline. No chest pain. ec2 Reports some urinary complaints.. Historical: - Allergies: 14:43 Azithromycin; bp - PMHx: 14:43 a-fib; angina pectoris; Migraine; NSTEMI; bp - Immunization history:: Adult Immunizations up to date. - Infectious Disease History:: Denies. - Social history:: Smoking status: Patient reports the use of cigarette tobacco products, unknown amount. ROS: 14:53 Constitutional: as per hpi ec2 Exam: 14:53 Constitutional: GEN: NAD Head: atraumatic Eyes: EOMI Ears: External ears are ec2 normal. CV: regular rate LUNGS: no respiratory distress, no wheezes, rales, rhonchi, no significant work of breathing ABD: non-distended SKIN: no evidence of rashes MSK: no evidence of trauma Vital Signs: 14:38 BP 174 / 100; Pulse 64; Resp 16; Temp 98.1; Pulse Ox 96% ; bp 15:12 BP 162 / 105; Pulse 68; Pulse Ox 100% on R/A; MAP 122 mmHg; tm6 MDM: 14:50 Medical Screening Exam initiated ec2 14:53 Data reviewed: vital signs. ED course: Patient arrives today for chronic shortness of ec2 breath. Examination remarkable for well-appearing nontoxic dividual's otherwise in no acute distress with a reassuring cardiopulmonary examination. Will obtain chest x-ray, treat with DuoNeb as well as steroid. Patient reports that she has not a smoker but her significant other smokes heavily. . 03/22 14:50 Order name: CXR XRAY; Complete Time: 15:37 ec2 Administered Medications: 15:10 Drug: predniSONE PO 40 mg PO once Route: PO; tm6 16:20 Follow up: Response: No adverse reaction bp 15:10 Drug: DuoNeb Nebulize (3:1) (2.5 mg - 0.5 mg) 3 ml Nebulizer once Route: Nebulizer; tm6 16:20 Follow up: Response: No adverse reaction bp Disposition Summary: 03/22/24 16:07 Discharge Ordered Notes: Location: Home ec2 Condition: Stable ec2 Diagnosis - COPD/ Chronic obstructive pulmonary disease, unspecified ec2 Followup: ec2 - With: Private Physician - When: - Reason: Re-evaluation by your physician Discharge Instructions: - Discharge Summary Sheet ec2 - Chronic Obstructive Pulmonary Disease ec2 Forms: - Medication Reconciliation Form ec2 - Antibiotic Education ec2 - Prescription Opioid Use ec2 - Patient Portal Instructions ec2 - Leadership Thank You Letter ec2 Prescriptions: - Prednisone 20 mg Oral Tablet - take 2 tablets ORAL route once daily for 5 days; 10 tablet; Refills: 0, Product ec2 Selection Permitted Signatures: Dispatcher [employer] Carlos Eduardo Wlikinson RN RN Yayo August MD MD ec2 Romi Mcneil RN RN tm6 Corrections: (The following items were deleted from the chart) 16:07 16:07 COPD/ Chronic obstructive pulmonary disease with (acute) exacerbation ec2 ec2
--- NOTE | 2024-03-22 16:07 | ER ---
Nurse's Notes [facility] Name: Marjan Kolb Age: 69 yrs Sex: Female : 1955 Arrival Date: 03/22/2024 Time: 14:35 Bed 8 Private MD: Diagnosis: COPD/ Chronic obstructive pulmonary disease, unspecified Presentation: 03/22 14:38 Chief complaint: EMS states: CHRONIC SOB. Coronavirus screen: At this time, the client bp does not indicate any symptoms associated with coronavirus-19. Ebola Screen: No symptoms or risks identified at this time. Initial Sepsis Screen: Does the patient meet any 2 criteria? No. Patient's initial sepsis screen is negative. Does the patient have a suspected source of infection? No. Patient's initial sepsis screen is negative. Risk Assessment: Do you want to hurt yourself or someone else? Patient reports no desire to harm self or others. Onset of symptoms is unknown. 14:38 Method Of Arrival: EMS: [facility] bp 14:38 Acuity: BLAYNE 3 bp Triage Assessment: 14:43 General: Appears in no apparent distress. Behavior is appropriate for age. Pain: Denies bp pain. EENT: No deficits noted. Neuro: No deficits noted. Cardiovascular: No deficits noted. Respiratory: Reports shortness of breath. GI: No signs and/or symptoms were reported involving the gastrointestinal system. : No signs and/or symptoms were reported regarding the genitourinary system. Derm: No deficits noted. Musculoskeletal: No deficits noted. Historical: - Allergies: 14:43 Azithromycin; bp - PMHx: 14:43 a-fib; angina pectoris; Migraine; NSTEMI; bp - Immunization history:: Adult Immunizations up to date. - Infectious Disease History:: Denies. - Social history:: Smoking status: Patient reports the use of cigarette tobacco products, unknown amount. Screenin:12 [facility] ED Fall Risk Assessment (Adult) History of falling in the last 3 months, tm6 including since admission No falls in past 3 months (0 pts) Confusion or Disorientation No (0 pts) Intoxicated or Sedated No (0 pts) Impaired Gait No (0 pts) Mobility Assist Device Used No (0 pt) Altered Elimination No (0 pt) Score/Fall Risk Level 0 - 2 = Low Risk Oriented to surroundings, Maintained a safe environment, Educated pt \T\ family on fall prevention, incl call for assistance when getting out of bed. Abuse screen: Denies threats or abuse. Denies injuries from another. Nutritional screening: No deficits noted. Tuberculosis screening: No symptoms or risk factors identified. Assessment: 15:12 General: Appears in no apparent distress. Behavior is calm, cooperative. Pain: Denies tm6 pain. Neuro: Level of Consciousness is awake, alert, obeys commands, Oriented to person, place, time, situation. Cardiovascular: Patient's skin is warm and dry. Respiratory: Reports shortness of breath at rest Airway is patent Respiratory effort is even, unlabored, Respiratory pattern is regular, symmetrical. GI: Abdomen is flat, non-distended. : No signs and/or symptoms were reported regarding the genitourinary system. EENT: No signs and/or symptoms were reported regarding the EENT system. Derm: No signs and/or symptoms reported regarding the dermatologic system. Musculoskeletal: No signs and/or symptoms reported regarding the musculoskeletal system. Vital Signs: 14:38 BP 174 / 100; Pulse 64; Resp 16; Temp 98.1; Pulse Ox 96% ; bp 15:12 BP 162 / 105; Pulse 68; Pulse Ox 100% on R/A; MAP 122 mmHg; tm6 ED Course: 14:38 Patient arrived in ED. bp 14:38 Yayo August MD is Attending Physician. bp 14:38 Carlos Eduardo Olivera, ASHLEY is Primary Nurse. bp 14:43 Triage completed. bp 14:43 Arm band placed on. bp 15:12 Patient has correct armband on for positive identification. Bed in low position. Call tm6 light in reach. Side rails up X2. Provided Education on: use of call jimenez. Client placed on continuous cardiac and pulse oximetry monitoring. NIBP monitoring applied. Pulse ox on. NIBP on. Door closed. Noise minimized. Warm blanket given. 15:17 CXR XRAY In Process Unspecified. EDMS 16:19 No provider procedures requiring assistance completed. Patient did not have IV access bp during this emergency room visit. Administered Medications: 15:10 Drug: predniSONE PO 40 mg PO once Route: PO; tm6 16:20 Follow up: Response: No adverse reaction bp 15:10 Drug: DuoNeb Nebulize (3:1) (2.5 mg - 0.5 mg) 3 ml Nebulizer once Route: Nebulizer; tm6 16:20 Follow up: Response: No adverse reaction bp Medication: 15:12 VIS not applicable for this client. tm6 Outcome: 16:07 Discharge ordered by . ec2 16:19 Discharged to home via wheelchair, bp 16:19 Condition: stable 16:19 Discharge instructions given to patient, Instructed on discharge instructions, follow up and referral plans. Demonstrated understanding of instructions, follow-up care, 16:21 Patient left the ED. bp Signatures: Dispatcher [employer] Carlos Eduardo Wilkinson, RN RN bp Yayo August MD MD ec2 Romi Mcneil RN RN tm6
[2024-03-22 16:26] VITALS: TEMP 98.1
[2024-03-22 16:28] VITALS: BP 162/105; O2SAT 100
== END 2024-03-22 16:21 | disposition home or self-care (01) ==
LOC: ER 14:35
DX: J44.9 Chronic obstructive pulmonary disease, unspecified (principal); I48.91 Unspecified atrial fibrillation; Z72.0 Tobacco use
CPT/HCPCS: 71045; 99284; J7512; J7613; J7644

== ENCOUNTER 2024-03-27 10:27 | Emergency (ER) | payer OTHER ==
[2024-03-27 13:32] LABS: Specific Gravity 1.024 (1.005-1.030); Sqamous Epithelial <5 /HPF (None Seen); Urine Bacteria <20 /HPF (<20); Urine Bilirubin NEGATIVE (Negative); Urine Blood Negative (Negative); Urine Clarity Turbid (Clear); Urine Color Yellow (Yellow); Urine Crystals Unidentified Few /HPF (None Seen); Urine Culture Reflex Order NOT NEEDED; Urine Glucose NEGATIVE (Negative); Urine Ketones NEGATIVE (Negative); Urine Micro Reflex YN NO BILL MICROSCOPIC; Urine Mucus Slight /HPF (None Seen); Urine Nitrite NEGATIVE (Negative); Urine Protein TRACE (Negative); Urine RBC <5 /HPF (None Seen); Urine Urobilinogen Normal (Normal); Urine WBC <5 /HPF (<5); Urine WBC Clump Rare /HPF (None Seen); Urine Yeast (Budding) Trace /HPF (None Seen)
--- NOTE | 2024-03-27 13:41 | ER ---
Nurse's Notes [facility] Name: Marjan Kolb Age: 69 yrs Sex: Female : 1955 Arrival Date: 03/27/2024 Time: 10:27 Bed 5 Private MD: Diagnosis: Flank pain Presentation: 03/27 11:22 Chief complaint: Patient states: left flank pain starting 3 weeks ago. I have been in tm6 to get checked out, they say it's nothing, but it keeps hurting. When I urinate it hurts. Coronavirus screen: Client denies travel out of the [place] in the last 14 days. Ebola Screen: Patient negative for fever greater than or equal to 101.5 degrees Fahrenheit, and additional compatible Ebola Virus Disease symptoms Patient denies exposure to infectious person. Patient denies travel to an Ebola-affected area in the 21 days before illness onset. No symptoms or risks identified at this time. Initial Sepsis Screen: Does the patient meet any 2 criteria? HR > 90 bpm. Does the patient have a suspected source of infection? No. Patient's initial sepsis screen is negative. Risk Assessment: Do you want to hurt yourself or someone else? Patient reports no desire to harm self or others. Onset of symptoms was March 06, 2024. 11:22 Method Of Arrival: Wheelchair tm6 11:22 Acuity: BLAYNE 3 tm6 Triage Assessment: 11:23 General: Appears in no apparent distress. Behavior is calm, cooperative. Pain: tm6 Complains of pain in left low back Pain currently is 10 out of 10 on a pain scale. Pain began a couple of weeks ago. EENT: No signs and/or symptoms were reported regarding the EENT system. Neuro: Level of Consciousness is awake, alert, obeys commands, Oriented to person, place, time, situation. Cardiovascular: Patient's skin is warm and dry. Respiratory: Airway is patent Respiratory effort is even, unlabored, Respiratory pattern is regular, symmetrical. GI: No signs and/or symptoms were reported involving the gastrointestinal system. Abdomen is round non-distended. : Reports burning with urination, pain in left flank(s). Derm: No signs and/or symptoms reported regarding the dermatologic system. Musculoskeletal: No signs and/or symptoms reported regarding the musculoskeletal system. Historical: - Allergies: 11:23 Azithromycin; tm6 - PMHx: 11:23 a-fib; angina pectoris; Migraine; NSTEMI; tm6 - PSHx: 11:23 shoulder replacement (NSTEMI); Cholecystectomy; tm6 11:23 coronary stents; tm6 - Immunization history:: Client reports receiving the 2nd dose of the Covid vaccine. - Infectious Disease History:: Denies. - Social history:: Smoking status: Patient denies any tobacco usage or history of. Patient/guardian denies using alcohol. Screenin:29 [facility] ED Fall Risk Assessment (Adult) History of falling in the last 3 months, ko1 including since admission Yes- single mechanical fall (1 pt) Confusion or Disorientation No (0 pts) Intoxicated or Sedated No (0 pts) Impaired Gait Yes (1 pt) Mobility Assist Device Used Yes (1 pt) Altered Elimination No (0 pt) Score/Fall Risk Level 3 or more points = High Risk Oriented to surroundings, Maintained a safe environment, Educated pt \T\ family on fall prevention, incl call for assistance when getting out of bed, Assessed \T\ reinforced patient's understanding of fall precautions, Provided non-skid footwear, Hourly rounding (assess needs \T\ fall precautionary measures) done, Used ambulatory aids as needed (educated on \T\ assisted with), Implemented a Fall Risk Plan of Care, Apply high fall risk patient identification: yellow non skid footwear/ fall signage, Remained w/in arm's length of patient and in sight while toileting, Offered frequent toileting (1:1 observation), Remained with patient while ambulating, Utilized family, sitter, or virtual hat measurer as indicated. Abuse screen: Denies threats or abuse. Denies injuries from another. Nutritional screening: No deficits noted. Tuberculosis screening: No symptoms or risk factors identified. Assessment: 13:29 General: Appears in no apparent distress. Behavior is calm, cooperative, appropriate ko1 for age. Pain: Complains of pain in left low back. Neuro: No deficits noted. Cardiovascular: No deficits noted. Respiratory: No deficits noted. GI: No deficits noted. : Reports burning with urination, pain in lower back with urination, urinary frequency. EENT: No deficits noted. No signs and/or symptoms were reported regarding the EENT system. Derm: Bruising that is dark purple, brown, green, on right arm and left arm. Musculoskeletal: No deficits noted. Vital Signs: 11:21 BP 158 / 100; Pulse 114; Resp 17; Temp 98.2(O); Pulse Ox 97% on R/A; Weight 81.19 kg; tm6 Height 5 ft. 4 in. ; Pain 10/10; 13:04 BP 184 / 106; Pulse 54; Resp 18; Pulse Ox 99% ; ko1 14:01 BP 168 / 99; Pulse 55; Resp 15; Pulse Ox 99% ; ko1 11:21 Body Mass Index 30.72 (81.19 kg, 162.56 cm) tm6 11:21 Pain Scale: Adult tm6 ED Course: 10:30 Patient arrived in ED. mg5 11:11 Heladio Collins MD is Attending Physician. sp3 11:23 Triage completed. tm6 11:23 Arm band placed on left wrist. tm6 13:05 Nancy Shannon, RN is Primary Nurse. ko1 13:29 Patient has correct armband on for positive identification. Allergy band placed. Fall ko1 risk band placed. Bed in low position. Call light in reach. Side rails up X 1. Provided Education on: labs. Pulse ox on. NIBP on. Door closed. Noise minimized. Lights dimmed. Warm blanket given. Pillow given. Assisted to bathroom. 13:29 UAM Sent. ko1 13:29 No provider procedures requiring assistance completed. Urine collected: clean catch ko1 specimen, aditi colored. Patient did not have IV access during this emergency room visit. Administered Medications: No medications were administered Medication: 13:29 VIS not applicable for this client. ko1 Outcome: 13:40 Discharge ordered by . sp3 14:01 Discharged to home via wheelchair, ko1 14:01 Condition: stable 14:01 Discharge instructions given to patient, Instructed on discharge instructions, follow up and referral plans. Demonstrated understanding of instructions, follow-up care, 14:05 Patient left the ED. ko1 Signatures: Heladio Collins MD MD sp3 Nancy Shannon, RN RN ko1 Connie Mares mg5 Romi Mcneil RN RN tm6
--- NOTE | 2024-03-27 13:41 | EDPHYS ---
Physician Documentation [facility] Name: Marjan Kolb Age: 69 yrs Sex: Female : 1955 Arrival Date: 03/27/2024 Time: 10:27 Bed 5 Private MD: ED Physician Heladio Collins HPI: 03/27 13:37 This 69 yrs old Female presents to ER via Wheelchair with complaints of Flank Pain. sp3 13:37 69-year-old female with complex medical history well-documented with multiple ER visits sp3 now presents with left flank pain. She denies any other symptoms including headache, fever, chest pain, shortness of breath, abdominal pain, vomiting, diarrhea, rash, bleeding or any other signs or symptoms at this time.. Historical: - Allergies: 11:23 Azithromycin; tm6 - PMHx: 11:23 a-fib; angina pectoris; Migraine; NSTEMI; tm6 - PSHx: 11:23 shoulder replacement (NSTEMI); Cholecystectomy; tm6 11:23 coronary stents; tm6 - Immunization history:: Client reports receiving the 2nd dose of the Covid vaccine. - Infectious Disease History:: Denies. - Social history:: Smoking status: Patient denies any tobacco usage or history of. Patient/guardian denies using alcohol. ROS: 13:39 Constitutional: Negative for fever, chills, and weight loss, Eyes: Negative for injury, sp3 pain, redness, and discharge, ENT: Negative for injury, pain, and discharge, Neck: Negative for injury, pain, and swelling, Cardiovascular: Negative for chest pain, palpitations, and edema, Respiratory: Negative for shortness of breath, cough, wheezing, and pleuritic chest pain, Abdomen/GI: Negative for abdominal pain, nausea, vomiting, diarrhea, and constipation, : Negative for injury, bleeding, discharge, and swelling, MS/Extremity: Negative for injury and deformity, Skin: Negative for injury, rash, and discoloration, Neuro: Negative for headache, weakness, numbness, tingling, and seizure, Psych: Negative for depression, anxiety, suicide ideation, homicidal ideation, and hallucinations, Allergy/Immunology: Negative for hives, rash, and allergies, 13:39 All other systems are negative, Exam: 13:39 Constitutional: This is a well developed, well nourished patient who is awake, alert, sp3 and in no acute distress. Head/Face: Normocephalic, atraumatic. Eyes: Pupils equal round and reactive to light, extra-ocular motions intact. Lids and lashes normal. Conjunctiva and sclera are non-icteric and not injected. Cornea within normal limits. Periorbital areas with no swelling, redness, or edema. Neck: Trachea midline, no thyromegaly or masses palpated, and no cervical lymphadenopathy. Supple, full range of motion without nuchal rigidity, or vertebral point tenderness. No Meningismus. Chest/axilla: Normal chest wall appearance and motion. Nontender with no deformity. No lesions are appreciated. Cardiovascular: Regular rate and rhythm with a normal S1 and S2. No gallops, murmurs, or rubs. Normal PMI, no JVD. No pulse deficits. Respiratory: Lungs have equal breath sounds bilaterally, clear to auscultation and percussion. No rales, rhonchi or wheezes noted. No increased work of breathing, no retractions or nasal flaring. Abdomen/GI: Soft, non-tender, with normal bowel sounds. No distension or tympany. No guarding or rebound. No evidence of tenderness throughout. Back: No spinal tenderness. No costovertebral tenderness. Full range of motion. Skin: Warm, dry with normal turgor. Normal color with no rashes, no lesions, and no evidence of cellulitis. MS/ Extremity: Pulses equal, no cyanosis. Neurovascular intact. Full, normal range of motion. Neuro: Awake and alert, GCS 15, oriented to person, place, time, and situation. Cranial nerves II-XII grossly intact. Motor strength 5/5 in all extremities. Sensory grossly intact. Cerebellar exam normal. Normal gait. Psych: Awake, alert, with orientation to person, place and time. Behavior, mood, and affect are within normal limits. Vital Signs: 11:21 BP 158 / 100; Pulse 114; Resp 17; Temp 98.2(O); Pulse Ox 97% on R/A; Weight 81.19 kg; tm6 Height 5 ft. 4 in. ; Pain 10/10; 13:04 BP 184 / 106; Pulse 54; Resp 18; Pulse Ox 99% ; ko1 14:01 BP 168 / 99; Pulse 55; Resp 15; Pulse Ox 99% ; ko1 11:21 Body Mass Index 30.72 (81.19 kg, 162.56 cm) tm6 11:21 Pain Scale: Adult tm6 MDM: 11:48 Medical Screening Exam initiated sp3 13:39 Data reviewed: vital signs, nurses notes, lab test result(s). ED course: Vital signs sp3 are normal. I believe that initial heart rate may have been aberrant. UA negative. I believe this is patient's chronic pain and we will be discharging her home at this time. Clinically have ruled out acute coronary syndrome, sepsis, shock, vascular emergency, or any other concerning pathology at this time. Patient is in no acute distress resting comfortably.. 03/27 12:11 Order name: UAM; Complete Time: 13:37 sp3 03/27 12:11 Order name: Recheck Vital Signs; Complete Time: 13:05 sp3 Administered Medications: No medications were administered Disposition Summary: 03/27/24 13:40 Discharge Ordered Notes: Location: Home sp3 Condition: Stable sp3 Diagnosis - Flank pain sp3 Followup: sp3 - With: Private Physician - When: Upon discharge from the Emergency Department - Reason: Continuance of care Discharge Instructions: - Discharge Summary Sheet sp3 - Flank Pain, Adult sp3 Forms: - Medication Reconciliation Form sp3 - Antibiotic Education sp3 - Prescription Opioid Use sp3 - Patient Portal Instructions sp3 - Leadership Thank You Letter sp3 Signatures: Dispatcher [employer] Heladio Jang MD MD sp3 Romi Mcneil RN RN tm6
[2024-03-27 14:37] VITALS: TEMP 98.2; O2SAT 99
[2024-03-27 14:39] VITALS: BP 168/99
== END 2024-03-27 14:05 | disposition home or self-care (01) ==
LOC: ER 10:27
DX: R10.9 Unspecified abdominal pain (principal); Z95.818 Presence of other cardiac implants and grafts
CPT/HCPCS: 81001

== ENCOUNTER 2024-04-03 19:41 | Emergency (ER) | payer OTHER ==
--- NOTE | 2024-04-03 21:12 | RAD REPORT ---
EXAMINATION: ONE VIEW CHEST XR CLINICAL INDICATION: CHEST PAIN TECHNIQUE: Frontal chest projection is submitted. Examination is limited by patient positioning and t echnique. COMPARISON: 03/22/2024, 02/22/2024 FINDINGS: Mild interstitial pulmonary edema seen. The heart is significantly enlarged in size. No displaced fra ctures identified. Bilateral shoulder arthroplasties. IMPRESSION: No acute intrathoracic abnormalities. Cardiomegaly.
[2024-04-03 21:37] LABS: Absolute Eosinophils 0.1 K/uL (0-0.5); Absolute Lymphocytes (CBC) 1.1 K/uL (0.7-4.9); Absolute Monocytes 0.6 K/uL (0.1-1.3); Absolute Neutrophil 3.9 K/uL (1.8-8.0); Basophils % 0.5 % (0-1.3); Hematocrit 29.8 % (36.0-45.0); Hemoglobin 9.6 g/dL (12.0-15.0); MCH 26.2 pg (27.0-35.0); MCHC 32.3 g/dL (32.0-36.0); MCV 81.2 fL (80-100); MPV 6.7 fL (7.6-11.3); Monocytes % 9.8 % (3.3-12.3); Neutrophils % 69.7 % (41.7-73.7); Platelets 139 thou/uL (152-406); RBC Red Blood Cell Count 3.67 M/uL (3.86-4.86)
[2024-04-03 21:46] LABS: Anisocytosis 1+; Blood Morphology Comment NOTED (NOT SEEN); Platelet Estimate DECR; White Blood Cell Scan OK (OK)
[2024-04-03 21:56] LABS: Albumin 3.1 g/dL (3.4-5.0); Albumin/Globulin Ratio 0.8 (1.1-1.8); Alkaline Phosphatase 73 U/L (45-117); Anion Gap 9.6 mEq/L (5.0-15.0); BUN Blood Urea Nitrogen 18 mg/dL (7-18); Bicarbonate 25 mEq/L (21-32); Bilirubin Direct 0.2 mg/dL (0-0.2); Bilirubin Indirect, Calculated 0.4 mg/dL (0.2-0.8); Bilirubin Total 0.6 mg/dL (0.2-1.0); Globulin 3.8 g/dL (2.3-3.5); Glomerular Filtration Rate 52 ml/min (=/>90); Glucose Level 107 mg/dL (74-106); Potassium 3.6 mEq/L (3.5-5.1); Protein, Total 6.9 g/dL (6.4-8.2); Sodium Level 138 mEq/L (136-145); Troponin High Sensitivity 9.1 pg/mL (<58.9)
[2024-04-03 21:58] LABS: ALT/SGPT < 14 U/L (13-56); AST/SGOT < 10 U/L (15-37)
--- NOTE | 2024-04-03 23:00 | ER ---
Nurse's Notes [facility] Name: Marjan Kolb Age: 69 yrs Sex: Female : 1955 Arrival Date: 04/03/2024 Time: 19:41 Bed Treatment Private MD: Diagnosis: COPD/ Chronic obstructive pulmonary disease with (acute) exacerbation;Chest pain, unspecified Presentation: 04/03 20:36 Chief complaint: EMS states: Pt reports SOB and CP on breathing. Was recently released jb4 from rehab facility. Pt was given 324 ASA and 1 nitro. satting 98% on RA. Coronavirus screen: At this time, the client does not indicate any symptoms associated with coronavirus-19. Ebola Screen: No symptoms or risks identified at this time. Risk Assessment: Do you want to hurt yourself or someone else? Patient reports no desire to harm self or others. Onset of symptoms was April 03, 2024. Transition of care: patient was not received from another setting of care. 20:36 Method Of Arrival: EMS: [facility] jb4 20:36 Acuity: BLAYNE 3 jb4 Historical: - Allergies: 20:38 Azithromycin; jb4 20:38 butorphanol tartrate; jb4 20:38 metoclopramide HCl; jb4 20:38 hydrocodone; jb4 20:38 ACETAMINOPHEN; jb4 20:38 Trimethoprim-Sulfamethoxazole; jb4 20:38 adhesive tape; jb4 20:38 Fentanyl; jb4 - PMHx: 20:38 a-fib; angina pectoris; Migraine; NSTEMI; jb4 - PSHx: 20:38 Cholecystectomy; coronary stents; shoulder replacement (NSTE); jb4 - Immunization history:: Adult Immunizations up to date, Client reports having NOT received the Covid vaccine. Last tetanus immunization: unknown. - Infectious Disease History:: Denies. - Social history:: Smoking status: unknown. Screenin:00 [facility] ED Fall Risk Assessment (Adult) History of falling in the last 3 months, kb3 including since admission No falls in past 3 months (0 pts) Confusion or Disorientation No (0 pts) Intoxicated or Sedated No (0 pts) Impaired Gait No (0 pts) Mobility Assist Device Used No (0 pt) Altered Elimination No (0 pt) Score/Fall Risk Level 0 - 2 = Low Risk Oriented to surroundings. Abuse screen: Denies threats or abuse. Denies injuries from another. Nutritional screening: No deficits noted. Tuberculosis screening: No symptoms or risk factors identified. Assessment: 23:19 General: Appears in no apparent distress. comfortable, Behavior is calm, cooperative. kb3 Pain: Denies pain. Respiratory: Airway is patent Trachea midline Respiratory effort is even, unlabored, Respiratory pattern is regular, symmetrical. Vital Signs: 21:28 BP 131 / 81; Pulse 63; Resp 16; Temp 99.3(O); Pulse Ox 100% on 2 lpm NC; Weight 72.12 jb4 kg; Height 5 ft. 4 in. ; 23:00 BP 135 / 85; Pulse 78; Resp 18; Temp 98; Pulse Ox 96% ; kb3 21:28 Body Mass Index 27.29 (72.12 kg, 162.56 cm) jb4 ED Course: 19:50 Patient arrived in ED. vc1 19:52 Jose Shah DO is Attending Physician. ms3 20:05 Attending Physician role handed off by Jose Shah DO sp4 20:05 Dion Randhawa MD is Attending Physician. sp4 20:38 Triage completed. jb4 20:38 Arm band placed on right wrist. jb4 21:08 XRAY Chest (1 view) In Process Unspecified. EDMS 21:27 Mode Bhatt, RN is Primary Nurse. jb4 21:42 EKG done, by ED staff, reviewed by Dion Randhawa MD. oe 21:42 Basic Metabolic Panel Sent. oe 21:42 CBC with Diff Sent. oe 21:42 Troponin HS Sent. oe 21:42 No provider procedures requiring assistance completed. Inserted saline lock: 22 gauge kb3 in left wrist, using aseptic technique. 23:00 Patient has correct armband on for positive identification. Call light in reach. kb3 Provided Education on: discharge, follow up with PCP, medications, prescriptions.. 23:19 IV discontinued, intact, bleeding controlled, No redness/swelling at site. Pressure kb3 dressing applied. Administered Medications: No medications were administered Medication: 23:00 VIS not applicable for this client. kb3 Outcome: 23:00 Discharge ordered by MD. sp4 23:19 Discharged to home ambulatory, kb3 23:19 Condition: improved 23:19 Discharge instructions given to patient, Instructed on discharge instructions, follow up and referral plans. medication usage, Demonstrated understanding of instructions, follow-up care, medications, Prescriptions given X 1, 23:24 Patient left the ED. kb3 Signatures: Dispatcher [employer] EDMS Mode Bhatt, RN RN jb4 Burton Malhotra Marcus, DO DO ms3 Deyanira Medina RN RN vc1 Ava Mabry RN RN kb3 Dion Randhawa MD MD sp4 Corrections: (The following items were deleted from the chart) 20:40 20:38 Allergies: sulfamethoxazole; jb4 jb4
--- NOTE | 2024-04-03 23:00 | EDPHYS ---
Physician Documentation [facility] Name: Marjan Kolb Age: 69 yrs Sex: Female : 1955 Arrival Date: 04/03/2024 Time: 19:41 Bed Treatment Private MD: ED Physician Dion Randhawa HPI: 04/03 20:25 This 69 yrs old Female presents to ER via Unassigned with complaints of chest pain. ms3 20:25 69 year old female presents via [facility] for chest pain that is not typical of ms3 their usual episodes. The pain is described as substernal. The patient visited their [facility] assisted living earlier today, who advised giving it time. The patient feels like vomiting but reports no shortness of breath. She denies any alleviating or inciting factors.. Historical: - Allergies: 20:38 Azithromycin; jb4 20:38 butorphanol tartrate; jb4 20:38 metoclopramide HCl; jb4 20:38 hydrocodone; jb4 20:38 ACETAMINOPHEN; jb4 20:38 Trimethoprim-Sulfamethoxazole; jb4 20:38 adhesive tape; jb4 20:38 Fentanyl; jb4 - PMHx: 20:38 a-fib; angina pectoris; Migraine; NSTEMI; jb4 - PSHx: 20:38 Cholecystectomy; coronary stents; shoulder replacement (NSTE); jb4 - Immunization history:: Adult Immunizations up to date, Client reports having NOT received the Covid vaccine. Last tetanus immunization: unknown. - Infectious Disease History:: Denies. - Social history:: Smoking status: unknown. ROS: 20:25 Constitutional: Negative for fever, and chills. ms3 20:25 Respiratory: Negative for shortness of breath, cough, wheezing, and pleuritic chest pain, Abdomen/GI: Negative for abdominal pain, nausea, vomiting, diarrhea, and constipation, MS/Extremity: Negative for injury and deformity, Skin: Negative for injury, rash, and discoloration, 20:25 Cardiovascular: Positive for chest pain, Exam: 20:25 Constitutional: This is a well developed, well nourished patient who is awake, alert, ms3 and in no acute distress. Head/Face: Normocephalic, atraumatic. Chest/axilla: Normal chest wall appearance and motion. Nontender with no deformity. Cardiovascular: Regular rate and rhythm with a normal S1 and S2. No gallops, murmurs, or rubs. Normal PMI, no JVD. No pulse deficits. Respiratory: Lungs have equal breath sounds bilaterally, clear to auscultation and percussion. No rales, rhonchi or wheezes noted. No increased work of breathing, no retractions or nasal flaring. Abdomen/GI: Soft, non-tender, with normal bowel sounds. No distension or tympany. No guarding or rebound. No evidence of tenderness throughout. Skin: Warm, dry with normal turgor. Normal color with no rashes, no lesions, and no evidence of cellulitis. 22:59 Constitutional: This is a well developed, well nourished patient who is awake, alert, sp4 and in no acute distress. Head/Face: Normocephalic, atraumatic. Eyes: Pupils equal round and reactive to light, extra-ocular motions intact. Lids and lashes normal. Conjunctiva and sclera are not injected. Cornea within normal limits. Periorbital areas with no swelling, redness, or edema. ENT: Nares patent. No nasal discharge, no septal abnormalities noted. Tympanic membranes are normal and external auditory canals are clear. Oropharynx with no redness, swelling, or masses, exudates, or evidence of obstruction, uvula midline. Mucous membranes moist. Neck: Trachea midline, no thyromegaly or masses palpated, and no cervical lymphadenopathy. Supple, full range of motion without nuchal rigidity, or vertebral point tenderness. Chest/axilla: Normal chest wall appearance and motion. Nontender with no deformity. No lesions are appreciated. Cardiovascular: Regular rate and rhythm with a normal S1 and S2. No gallops, murmurs, or rubs. Normal PMI, no JVD. No pulse deficits. Respiratory: Lungs have equal breath sounds bilaterally, clear to auscultation and percussion. No rales, rhonchi or wheezes noted. No increased work of breathing, no retractions or nasal flaring. Abdomen/GI: Soft, with normal bowel sounds. No distension or tympany. No guarding or rebound. No evidence of tenderness throughout. Back: No spinal tenderness. No costovertebral tenderness. Skin: Warm, dry with normal turgor. Normal color with no rashes, no lesions, and no evidence of cellulitis. MS/ Extremity: Pulses equal, no cyanosis. Neurovascular intact. Full, normal range of motion. Neuro: Awake and alert, GCS 15, oriented to person, place, time, and situation. Cranial nerves II-XII grossly intact. Motor strength 5/5 in all extremities. Sensory grossly intact. Psych: Awake, alert, with orientation to person, place and time. Behavior, mood, and affect are within normal limits 22:59 ECG was reviewed by the Attending Physician. EKG at 2136 sinus bradycardia rate 56 otherwise normal. Vital Signs: 21:28 BP 131 / 81; Pulse 63; Resp 16; Temp 99.3(O); Pulse Ox 100% on 2 lpm NC; Weight 72.12 jb4 kg; Height 5 ft. 4 in. ; 23:00 BP 135 / 85; Pulse 78; Resp 18; Temp 98; Pulse Ox 96% ; kb3 21:28 Body Mass Index 27.29 (72.12 kg, 162.56 cm) jb4 MDM: 19:52 Medical Screening Exam initiated ms3 20:25 Differential diagnosis: abnormal EKG, acute myocardial infarction, stable angina. The ms3 patient was not given aspirin in the Emergency Department. Administered by EMS. 20:28 Transition of care: After a detail discussion of the patient's case, care is ms3 transferred to Dion Randhawa MD. 22:58 HEART Score: History: Slightly Suspicious (0), ECG: Non specific repolarization sp4 disturbance / LBTB / PM (1), Age: > or = 65 years (2), Risk Factors: 1 or 2 risk factors (1), Troponin: < or = 1 x Normal Limit (0), Total Score = 4. Data reviewed: vital signs, nurses notes, old medical records, lab test result(s), EKG, radiologic studies, plain films. ED course: EXAMINATION: ONE VIEW CHEST XR CLINICAL INDICATION: CHEST PAIN TECHNIQUE: Frontal chest projection is submitted. Examination is limited by patient positioning and technique. COMPARISON: 03/22/2024, 02/22/2024 FINDINGS: Mild interstitial pulmonary edema seen. The heart is significantly enlarged in size. No displaced fractures identified. Bilateral shoulder arthroplasties. IMPRESSION: No acute intrathoracic abnormalities. Cardiomegaly. Reported By: Dustin Aleman. 04/03 19:52 Order name: Basic Metabolic Panel; Complete Time: 22:55 ms3 04/03 19:52 Order name: CBC with Diff; Complete Time: 22:55 ms3 04/03 19:52 Order name: Troponin HS; Complete Time: 22:55 ms3 04/03 21:36 Order name: Liver (Hepatic) Function; Complete Time: 22:55 EDMS 04/03 21:46 Order name: CBC Smear Scan; Complete Time: 22:55 EDMS 04/03 19:52 Order name: XRAY Chest (1 view); Complete Time: 22:55 ms3 04/03 19:52 Order name: Cardiac monitoring; Complete Time: 21:27 ms3 04/03 19:52 Order name: EKG - Nurse/Tech; Complete Time: 21:27 ms3 04/03 19:52 Order name: IV Saline Lock; Complete Time: 21:27 ms3 04/03 19:52 Order name: Labs collected and sent; Complete Time: 21:27 ms3 04/03 19:52 Order name: O2 Per Protocol; Complete Time: 21:27 ms3 04/03 19:52 Order name: O2 Sat Monitoring; Complete Time: 21:27 ms3 EC:59 Rate is 56 beats/min. Rhythm is regular, Sinus bradycardia. QRS [place] is Normal. [place] sp4 interval is normal. QRS interval is normal. QT interval is prolonged. No Q waves. T waves are Normal. No ST changes noted. Clinical impression: No evidence of ischemia. Interpreted by me. Reviewed by me. Administered Medications: No medications were administered Disposition Summary: 04/03/24 23:00 Discharge Ordered Notes: Location: Home sp4 Problem: new sp4 Symptoms: have improved sp4 Condition: Stable sp4 Diagnosis - COPD/ Chronic obstructive pulmonary disease with (acute) exacerbation sp4 - Chest pain, unspecified sp4 Followup: sp4 - With: Private Physician - When: 7 - 10 days - Reason: Recheck today's complaints Discharge Instructions: - Discharge Summary Sheet sp4 - Nonspecific Chest Pain, Adult, [id number] sp4 Forms: - Patient Portal Instructions sp4 Prescriptions: - Ventolin HFA 90 mcg/actuation Inhalation HFA Aerosol Inhaler - inhale 2 inhalation INHALATION route every 6 hours PRN dyspnea; 1 unit; sp4 Refills: 0, Product Selection Permitted Signatures: Dispatcher [employer] EDMS Mode Bhatt, RN RN jb4 Jose Shah, DO ms3 Ava Mabry, RN RN kb3 Dion Randhawa MD MD sp4 Corrections: (The following items were deleted from the chart) 19:53 19:53 BASIC METABOLIC PANEL+C.LAB.BRZ ordered. EDMS EDMS 19:53 19:53 CBC+H.LAB.BRZ ordered. EDMS EDMS :53 19:53 Troponin High Sensitivity+C.LAB.BRZ ordered. EDMS EDMS 19:53 19:53 Chest Single View+RAD.RAD.BRZ ordered. EDMS EDMS 20:40 20:38 Allergies: sulfamethoxazole; jb4 jb4 21:36 20:15 HEPATIC FUNCTION+C.LAB.BRZ ordered. EDMS EDMS
[2024-04-03 23:45] VITALS: BP 135/85; TEMP 98; O2SAT 96
== END 2024-04-03 23:24 | disposition home or self-care (01) ==
LOC: ER 19:41
DX: J44.1 Chronic obstructive pulmonary disease with (acute) exacerbation (principal); Z95.818 Presence of other cardiac implants and grafts; Z28.310 Unvaccinated for COVID-19
CPT/HCPCS: 36415; 71045; 80048; 80076; 84484; 85025; 93005

== ENCOUNTER 2024-04-16 17:30 | Emergency (ER) | payer OTHER ==
[2024-04-16] MEDS ORDERED: cloNIDine HCL 0.1 MG TAB ONE (18:16)
--- NOTE | 2024-04-16 18:22 | EDPHYS ---
Physician Documentation [facility] Name: Marjan Kolb Age: 69 yrs Sex: Female : 1955 Arrival Date: 04/16/2024 Time: 17:30 Bed [id number] Private MD: ED Physician Yayo August HPI: 04/16 17:57 This 69 yrs old Female presents to ER via Wheelchair with complaints of Chest Pain, sb4 High Blood Pressure. 18:26 patient reports chest pain and elevated blood pressure that began today. states she has sb4 taken all of her blood pressure medications as prescribed but BP is still high and now she has a headache. Historical: - Allergies: 17:46 ACETAMINOPHEN; tm6 17:46 adhesive tape; tm6 17:46 Azithromycin; tm6 17:46 butorphanol tartrate; tm6 17:46 Fentanyl; tm6 17:46 HYDROCODONE; tm6 17:46 metoclopramide HCl; tm6 17:46 Trimethoprim-Sulfamethoxazole; tm6 - PMHx: 17:46 a-fib; angina pectoris; Migraine; NSTEMI; tm6 - PSHx: 17:46 Cholecystectomy; shoulder replacement (NSTE); coronary stents; tm6 - Immunization history:: Client reports receiving the 2nd dose of the Covid vaccine. - Infectious Disease History:: Denies. - Social history:: Smoking status: Patient denies any tobacco usage or history of. Patient/guardian denies using alcohol. ROS: 18:26 Constitutional: Negative for fever, chills, and weight loss, sb4 18:26 Cardiovascular: Positive for chest pain, 18:26 Respiratory: Positive for shortness of breath, 18:26 Neuro: Positive for headache, 18:26 All other systems are negative, Exam: 18:26 Constitutional: This is a well developed, well nourished patient who is awake, alert, sb4 and in no acute distress. Head/Face: Normocephalic, atraumatic. Eyes: Extra-ocular motions intact. Periorbital areas with no swelling, redness, or edema. ENT: Mucous membranes moist. Respiratory: No increased work of breathing, no retractions or nasal flaring. Vital Signs: 17:45 Weight 81.19 kg; Height 5 ft. 4 in. ; Pain 9/10; tm6 17:46 Pulse 55; Resp 18; Temp 97.9; Pulse Ox 100% on R/A; tm6 17:47 BP 181 / 116; MAP 132 mmHg; tm6 17:45 Body Mass Index 30.72 (81.19 kg, 162.56 cm) tm6 17:45 Pain Scale: Adult tm6 MDM: 17:53 Medical Screening Exam initiated sb4 18:26 Data reviewed: vital signs, nurses notes, and as a result, I will discharge patient. sb4 Counseling: I had a detailed discussion with the patient and/or guardian regarding to return to the emergency department if symptoms worsen or persist or if there are any questions or concerns that arise at home, smoking cessation. ED course: patient was told she will not be receiving any narcotics and decided to leave the ED. 04/16 17:52 Order name: EKG; Complete Time: 17:53 sb4 04/16 17:52 Order name: Cardiac monitoring sb4 04/16 17:52 Order name: EKG - Nurse/Tech; Complete Time: 18:18 sb4 04/16 17:52 Order name: IV Saline Lock sb4 04/16 17:52 Order name: Labs collected and sent sb4 04/16 17:52 Order name: O2 Per Protocol sb4 04/16 17:52 Order name: O2 Sat Monitoring sb4 EC:56 Rate is 66 beats/min. Rhythm is regular, Normal Sinus Rhythm. [place] interval is prolonged sb4 at 208 msec. QRS interval is normal at 94 msec. QT interval is prolonged at 466 msec. Clinical impression: No evidence of ischemia. Interpreted by me. Reviewed by me. Administered Medications: 18:18 Drug: cloNIDine PO 0.2 mg PO once Route: PO; tm6 Disposition Summary: 04/16/24 18:22 Discharge Ordered Notes: Location: Home sb4 Problem: new sb4 Symptoms: have improved sb4 Condition: Stable sb4 Diagnosis - Essential (primary) hypertension sb4 Followup: sb4 - With: Mike Lund MD - When: As needed - Reason: Recheck today's complaints, Re-evaluation by your physician Forms: - Medication Reconciliation Form sb4 - Antibiotic Education sb4 - Prescription Opioid Use sb4 - Patient Portal Instructions sb4 - Leadership Thank You Letter sb4 Signatures: Dispatcher [employer] Daysi Wisdom PA-C PA-C sb4 Romi Mcneil, RN RN tm6 Corrections: (The following items were deleted from the chart) 18:22 17:53 Chest Single View+RAD.RAD.BRZ ordered. EDMS EDMS
--- NOTE | 2024-04-16 18:22 | ER ---
Nurse's Notes [facility] Name: Marjan Kolb Age: 69 yrs Sex: Female : 1955 Arrival Date: 04/16/2024 Time: 17:30 Bed [id number] Private MD: Diagnosis: Essential (primary) hypertension Presentation: 04/16 17:45 Chief complaint: Patient states: chest pain started this afternoon, head feels like its tm6 going to explode. I took my bp meds as prescribed but my bp is not going down. I feel like I can't breathe. Coronavirus screen: Client denies travel out of the [place] in the last 14 days. Ebola Screen: Patient negative for fever greater than or equal to 101.5 degrees Fahrenheit, and additional compatible Ebola Virus Disease symptoms Patient denies exposure to infectious person. Patient denies travel to an Ebola-affected area in the 21 days before illness onset. No symptoms or risks identified at this time. Initial Sepsis Screen:. Risk Assessment: Do you want to hurt yourself or someone else? Patient reports no desire to harm self or others. Onset of symptoms was April 16, 2024. 17:45 Method Of Arrival: Wheelchair tm6 17:45 Acuity: BLAYNE 3 tm6 17:46 Initial Sepsis Screen: Does the patient meet any 2 criteria? No. Patient's initial tm6 sepsis screen is negative. Does the patient have a suspected source of infection? No. Patient's initial sepsis screen is negative. Triage Assessment: 17:46 General: Appears in no apparent distress. Behavior is calm, cooperative. Pain: tm6 Complains of pain in chest Quality of pain is described as Pain began earlier today. EENT: No signs and/or symptoms were reported regarding the EENT system. Neuro: Level of Consciousness is awake, alert, obeys commands, Oriented to person, place, time, situation. Cardiovascular: Reports chest pain, shortness of breath, Patient's skin is warm and dry. Respiratory: Reports shortness of breath at rest. GI: No signs and/or symptoms were reported involving the gastrointestinal system. Abdomen is flat, non-distended. : No signs and/or symptoms were reported regarding the genitourinary system. Derm: No signs and/or symptoms reported regarding the dermatologic system. Musculoskeletal: No signs and/or symptoms reported regarding the musculoskeletal system. Historical: - Allergies: 17:46 ACETAMINOPHEN; tm6 17:46 adhesive tape; tm6 17:46 Azithromycin; tm6 17:46 butorphanol tartrate; tm6 17:46 Fentanyl; tm6 17:46 HYDROCODONE; tm6 17:46 metoclopramide HCl; tm6 17:46 Trimethoprim-Sulfamethoxazole; tm6 - PMHx: 17:46 a-fib; angina pectoris; Migraine; NSTEMI; tm6 - PSHx: 17:46 Cholecystectomy; shoulder replacement (NSTE); coronary stents; tm6 - Immunization history:: Client reports receiving the 2nd dose of the Covid vaccine. - Infectious Disease History:: Denies. - Social history:: Smoking status: Patient denies any tobacco usage or history of. Patient/guardian denies using alcohol. Screenin:27 [facility] ED Fall Risk Assessment (Adult) History of falling in the last 3 months, tm6 including since admission No falls in past 3 months (0 pts) Confusion or Disorientation No (0 pts) Intoxicated or Sedated No (0 pts) Impaired Gait No (0 pts) Mobility Assist Device Used No (0 pt) Altered Elimination No (0 pt) Score/Fall Risk Level 0 - 2 = Low Risk Oriented to surroundings, Maintained a safe environment, Educated pt \T\ family on fall prevention, incl call for assistance when getting out of bed. Abuse screen: Denies threats or abuse. Denies injuries from another. Nutritional screening: No deficits noted. Tuberculosis screening: No symptoms or risk factors identified. Assessment: 18:27 Reassessment: see triage assessment. Pain: Pain does not radiate. tm6 Vital Signs: 17:45 Weight 81.19 kg; Height 5 ft. 4 in. ; Pain 9/10; tm6 17:46 Pulse 55; Resp 18; Temp 97.9; Pulse Ox 100% on R/A; tm6 17:47 BP 181 / 116; MAP 132 mmHg; tm6 17:45 Body Mass Index 30.72 (81.19 kg, 162.56 cm) tm6 17:45 Pain Scale: Adult tm6 ED Course: 17:32 Patient arrived in ED. im 17:35 Daysi Mendez PA-C is PHCP. sb4 17:35 Yayo August MD is Attending Physician. sb4 17:46 Triage completed. tm6 17:46 Arm band placed on right wrist. tm6 17:47 EKG completed in triage. Results shown to . tm6 18:21 Mike Lund MD is Referral Physician. sb4 18:27 Patient has correct armband on for positive identification. Provided Education on: tm6 follow up with pcp. 18:27 No provider procedures requiring assistance completed. Patient did not have IV access tm6 during this emergency room visit. Patient maintains SpO2 saturation greater than 95% on room air. Administered Medications: 18:18 Drug: cloNIDine PO 0.2 mg PO once Route: PO; tm6 Medication: 18:27 VIS not applicable for this client. tm6 Outcome: 18:22 Discharge ordered by . sb4 18:27 Discharged to home with family, tm6 18:27 Condition: stable 18:27 Instructed on follow up and referral plans. patient left prior to receiving discharge paperwork 18:40 Patient left the ED. tm6 Signatures: Daysi Mendez PA-C PA-C sb4 Luzmaria Person Tawney, RN RN tm6
[2024-04-16 22:38] VITALS: TEMP 97.9; O2SAT 100
[2024-04-16 22:39] VITALS: BP 181/116
--- NOTE | 2024-04-18 11:37 | EKG ---
Test Date: 2024-04-16 Test Time: 17:53:11 Sweatband Flanger: DC MEASUREMENT RESULTS: Intervals: Rate: 66 NM: 208 QRSD: 94 QT: 466 QTc: 488 [place]: P: NM: 208 QRS: 15 T: 164 INTERPRETIVE STATEMENTS: Normal sinus rhythm Minimal voltage criteria for LVH, may be normal variant Nonspecific T wave abnormality Prolonged QT Abnormal ECG Compared to ECG 04/07/2024 06:08:35 Left ventricular hypertrophy now present T-wave abnormality now present Prolonged QT interval now present ST (T wave) deviation no longer present Possible ischemia no longer present Electronically Signed On 04-18-24 11:33:13 PROPERTY MANAGEMENT COORDINATOR by Tommy Da Silva
== END 2024-04-16 18:40 | disposition home or self-care (01) ==
LOC: ER 17:30
DX: I10 Essential (primary) hypertension (principal); R07.9 Chest pain, unspecified; R51.9 Headache, unspecified; Z95.5 Presence of coronary angioplasty implant and graft; Z88.5 Allergy status to narcotic agent; Z88.8 Allergy status to other drugs, medicaments and biological substances; Z88.3 Allergy status to other anti-infective agents; I48.11 Longstanding persistent atrial fibrillation
CPT/HCPCS: 93005; 99283

== ENCOUNTER 2024-04-25 04:40 | Emergency (ER) | payer OTHER ==
[2024-04-25] MEDS ORDERED: IBUPROFEN 400 MG TAB ONE (04:58)
[2024-04-25] MEDS ORDERED: cloNIDine HCL 0.1 MG TAB ONE (04:59)
[2024-04-25] MEDS ORDERED: ACETAMINOPHEN 500 MG TAB ONE (05:47)
--- NOTE | 2024-04-25 06:34 | ER ---
Nurse's Notes [facility] Name: Marjan Kolb Age: 69 yrs Sex: Female : 1955 Arrival Date: 04/25/2024 Time: 04:40 Bed 13 Private MD: Diagnosis: Tension-type headache;Essential (primary) hypertension Presentation: 04/25 04:49 Chief complaint: Patient states: I have had a headache since last night around 1999. bm8 Coronavirus screen: Vaccine status: At this time, the client does not indicate any symptoms associated with coronavirus-19. Ebola Screen: Patient negative for fever greater than or equal to 101.5 degrees Fahrenheit, and additional compatible Ebola Virus Disease symptoms Patient denies exposure to infectious person. Patient denies travel to an Ebola-affected area in the 21 days before illness onset. No symptoms or risks identified at this time. Initial Sepsis Screen: Does the patient meet any 2 criteria? No. Patient's initial sepsis screen is negative. Does the patient have a suspected source of infection? No. Patient's initial sepsis screen is negative. Risk Assessment: Do you want to hurt yourself or someone else? Patient reports no desire to harm self or others. Onset of symptoms was April 24, 2024 at 20:00. 04:49 Method Of Arrival: Ambulatory 8 04:49 Acuity: BLAYNE 4 bm8 Triage Assessment: 04:52 Headache History: The patient has had previous headaches and this one is similar to bm8 previous episodes. General: Appears in no apparent distress. uncomfortable, Behavior is calm, cooperative, appropriate for age. Pain: Complains of pain in head Pain currently is 10 out of 10 on a pain scale. Pain: Pain began 1 day ago. Also complains of sleeplessness. EENT: No deficits noted. No signs and/or symptoms were reported regarding the EENT system. Neuro: No deficits noted. Level of Consciousness is awake, alert, obeys commands, Oriented to person, place, time, situation, Appropriate for age Reports headache frontal area. Cardiovascular: Denies chest pain, Capillary refill < 3 seconds in bilateral fingers Patient's skin is warm and dry. Respiratory: Airway is patent Respiratory effort is even, unlabored, Respiratory pattern is regular, symmetrical. GI: No signs and/or symptoms were reported involving the gastrointestinal system. : No signs and/or symptoms were reported regarding the genitourinary system. Derm: No signs and/or symptoms reported regarding the dermatologic system. Musculoskeletal: No signs and/or symptoms reported regarding the musculoskeletal system. Historical: - Allergies: 04:52 ACETAMINOPHEN; bm8 04:52 adhesive tape; bm8 04:52 Azithromycin; bm8 04:52 butorphanol tartrate; bm8 04:52 Fentanyl; bm8 04:52 HYDROCODONE; bm8 04:52 metoclopramide HCl; bm8 04:52 Trimethoprim-Sulfamethoxazole; bm8 - Home Meds: 04:52 Unable to obtain [Active]; bm8 - PMHx: 04:52 a-fib; angina pectoris; Migraine; NSTEMI; bm8 - PSHx: 04:52 Cholecystectomy; coronary stents; shoulder replacement (NSTE); bm8 - Immunization history:: Adult Immunizations up to date. - Infectious Disease History:: Denies. - Social history:: Smoking status: Patient denies any tobacco usage or history of. Patient/guardian denies using alcohol, street drugs, tobacco products. - Family history:: not pertinent. Screenin:[facility] ED Fall Risk Assessment (Adult) History of falling in the last 3 months, bm8 including since admission No falls in past 3 months (0 pts) Confusion or Disorientation No (0 pts) Intoxicated or Sedated No (0 pts) Impaired Gait No (0 pts) Mobility Assist Device Used No (0 pt) Altered Elimination No (0 pt) Score/Fall Risk Level 0 - 2 = Low Risk Oriented to surroundings, Maintained a safe environment, Educated pt \T\ family on fall prevention, incl call for assistance when getting out of bed, Assessed \T\ reinforced patient's understanding of fall precautions, Hourly rounding (assess needs \T\ fall precautionary measures) done, Used ambulatory aids as needed (educated on \T\ assisted with), Used gait belt as appropriate. Abuse screen: Denies threats or abuse. Nutritional screening: No deficits noted. Tuberculosis screening: No symptoms or risk factors identified. Assessment: 04:56 Reassessment: see triage asessment. bm8 05:50 General: Patient requests Tylenol states that she is not allergic. vc1 06:01 Reassessment: Patient appears in no apparent distress at this time. No changes from bm8 previously documented assessment. Patient and/or family updated on plan of care and expected duration. Pain level reassessed. Patient is alert, oriented x 3, equal unlabored respirations, skin warm/dry/pink. 06:21 Reassessment: Patient appears in no apparent distress at this time. Patient and/or bm8 family updated on plan of care and expected duration. Pain level reassessed. Patient is alert, oriented x 3, equal unlabored respirations, skin warm/dry/pink. Vital Signs: 04:49 BP 196 / 120; Pulse 58; Resp 18; Temp 98.4; Pulse Ox 97% ; Weight 77.11 kg; Height 5 bm8 ft. 4 in. ; Pain 10/10; 06:01 BP 199 / 99; Pulse 54; Resp 20; Temp 98.4; Pulse Ox 97% ; Pain 10/10; bm8 06:21 BP 152 / 93; Pulse 51; Resp 18; Temp 98.4; Pulse Ox 95% on R/A; Pain 10/10; bm8 04:49 Body Mass Index 29.18 (77.11 kg, 162.56 cm) bm8 04:49 Pain Scale: Adult bm8 06:01 Pain Scale: Adult bm8 06:21 Pain Scale: Adult bm8 [place] Coma Score: 04:56 Eye Response: spontaneous(4). Motor Response: obeys commands(6). Verbal Response: bm8 oriented(5). Total: 15. 06:01 Eye Response: spontaneous(4). Motor Response: obeys commands(6). Verbal Response: bm8 oriented(5). Total: 15. 06:21 Eye Response: spontaneous(4). Motor Response: obeys commands(6). Verbal Response: bm8 oriented(5). Total: 15. 21:07 Eye Response: spontaneous(4). Motor Response: obeys commands(6). Verbal Response: sp4 oriented(5). Total: 15. ED Course: 04:43 Patient arrived in ED. gm2 04:46 Dion Randhawa MD is Attending Physician. sp4 04:49 Riaz Lafleur, RN is Primary Nurse. bm8 04:52 Triage completed. bm8 04:52 Arm band placed on right wrist. bm8 04:56 Patient has correct armband on for positive identification. Bed in low position. Call bm8 light in reach. Side rails up X 1. Client placed on continuous cardiac and pulse oximetry monitoring. NIBP monitoring applied. Pulse ox on. NIBP on. Door closed. Noise minimized. Verbal reassurance given. Head of bed elevated. 04:56 No provider procedures requiring assistance completed. Patient did not have IV access bm8 during this emergency room visit. Patient maintains SpO2 saturation greater than 95% on room air. 06:38 Provided Education on: post er care. bm8 Administered Medications: 05:01 Drug: cloNIDine PO 0.2 mg PO once Route: PO; bm8 06:03 Follow up: Response: No adverse reaction bm8 05:01 Drug: Ibuprofen PO 800 mg PO once Route: PO; bm8 06:02 Follow up: Response: No adverse reaction bm8 05:49 Drug: Acetaminophen PO 1000 mg PO once Route: PO; vc1 06:02 Follow up: Response: No adverse reaction bm8 Medication: 04:56 VIS not applicable for this client. bm8 Outcome: 06:33 Discharge ordered by . adis 06:38 Discharged to home ambulatory, bm8 06:38 Condition: stable 06:38 Discharge instructions given to patient, Instructed on discharge instructions, follow up and referral plans. medication usage, Demonstrated understanding of instructions, follow-up care, medications, 06:38 Patient left the ED. bm8 Signatures: Deyanira Medina, RN RN vc1 Dion Randhawa MD MD sp4 Karyn Philippe gm2 Riaz Lafleur RN RN bm8
--- NOTE | 2024-04-25 06:34 | EDPHYS ---
Physician Documentation [facility] Name: Marjan Kolb Age: 69 yrs Sex: Female : 1955 Arrival Date: 04/25/2024 Time: 04:40 Bed 13 Private MD: ED Physician Dion Randhawa HPI: 04/25 04:46 This 69 yrs old Female presents to ER via Unassigned with complaints of Headache. sp4 21:07 69-year-old female presents with complaint of a headache also noted to have elevated sp4 blood pressure.. Historical: - Allergies: 04:52 ACETAMINOPHEN; bm8 04:52 adhesive tape; bm8 04:52 Azithromycin; bm8 04:52 butorphanol tartrate; bm8 04:52 Fentanyl; bm8 04:52 HYDROCODONE; bm8 04:52 metoclopramide HCl; bm8 04:52 Trimethoprim-Sulfamethoxazole; bm8 - Home Meds: 04:52 Unable to obtain [Active]; bm8 - PMHx: 04:52 a-fib; angina pectoris; Migraine; NSTEMI; bm8 - PSHx: 04:52 Cholecystectomy; coronary stents; shoulder replacement (NSTE); bm8 - Immunization history:: Adult Immunizations up to date. - Infectious Disease History:: Denies. - Social history:: Smoking status: Patient denies any tobacco usage or history of. Patient/guardian denies using alcohol, street drugs, tobacco products. - Family history:: not pertinent. ROS: 21:07 Constitutional: Negative for fever, chills, and weight loss, positive for headache sp4 and elevated blood pressure 21:07 All other systems are negative, Exam: 21:07 Constitutional: This is a well developed, well nourished patient who is awake, alert, sp4 and in no acute distress. Head/Face: Normocephalic, atraumatic. Eyes: Pupils equal round and reactive to light, extra-ocular motions intact. Lids and lashes normal. Conjunctiva and sclera are not injected. Cornea within normal limits. Periorbital areas with no swelling, redness, or edema. ENT: Nares patent. No nasal discharge, no septal abnormalities noted. Tympanic membranes are normal and external auditory canals are clear. Oropharynx with no redness, swelling, or masses, exudates, or evidence of obstruction, uvula midline. Mucous membranes moist. Neck: Trachea midline, no thyromegaly or masses palpated, and no cervical lymphadenopathy. Supple, full range of motion without nuchal rigidity, or vertebral point tenderness. Chest/axilla: Normal chest wall appearance and motion. Nontender with no deformity. No lesions are appreciated. Cardiovascular: Regular rate and rhythm with a normal S1 and S2. No gallops, murmurs, or rubs. Normal PMI, no JVD. No pulse deficits. Respiratory: Lungs have equal breath sounds bilaterally, clear to auscultation and percussion. No rales, rhonchi or wheezes noted. No increased work of breathing, no retractions or nasal flaring. Abdomen/GI: Soft, with normal bowel sounds. No distension or tympany. No guarding or rebound. No evidence of tenderness throughout. Back: No spinal tenderness. No costovertebral tenderness. Skin: Warm, dry with normal turgor. Normal color with no rashes, no lesions, and no evidence of cellulitis. MS/ Extremity: Pulses equal, no cyanosis. Neurovascular intact. Full, normal range of motion. Neuro: Awake and alert, GCS 15, oriented to person, place, time, and situation. Cranial nerves II-XII grossly intact. Motor strength 5/5 in all extremities. Sensory grossly intact. Psych: Awake, alert, with orientation to person, place and time. Behavior, mood, and affect are within normal limits Vital Signs: 04:49 BP 196 / 120; Pulse 58; Resp 18; Temp 98.4; Pulse Ox 97% ; Weight 77.11 kg; Height 5 bm8 ft. 4 in. ; Pain 10/10; 06:01 BP 199 / 99; Pulse 54; Resp 20; Temp 98.4; Pulse Ox 97% ; Pain 10/10; bm8 06:21 BP 152 / 93; Pulse 51; Resp 18; Temp 98.4; Pulse Ox 95% on R/A; Pain 10/10; bm8 04:49 Body Mass Index 29.18 (77.11 kg, 162.56 cm) [facility] 04:49 Pain Scale: Adult bm8 06:01 Pain Scale: Adult bm8 06:21 Pain Scale: Adult bm8 [place] Coma Score: 04:56 Eye Response: spontaneous(4). Motor Response: obeys commands(6). Verbal Response: bm8 oriented(5). Total: 15. 06:01 Eye Response: spontaneous(4). Motor Response: obeys commands(6). Verbal Response: bm8 oriented(5). Total: 15. 06:21 Eye Response: spontaneous(4). Motor Response: obeys commands(6). Verbal Response: bm8 oriented(5). Total: 15. 21:07 Eye Response: spontaneous(4). Motor Response: obeys commands(6). Verbal Response: sp4 oriented(5). Total: 15. MDM: 04:54 Medical Screening Exam initiated sp4 21:08 Differential diagnosis: hypertensive headache, migraine, tension headache, vasomotor sp4 headache. Data reviewed: vital signs, nurses notes. ED course: Blood pressure hath improved , and patient is stable for discharge. Very Well .. Administered Medications: 05:01 Drug: cloNIDine PO 0.2 mg PO once Route: PO; bm8 06:03 Follow up: Response: No adverse reaction bm8 05:01 Drug: Ibuprofen PO 800 mg PO once Route: PO; bm8 06:02 Follow up: Response: No adverse reaction bm8 05:49 Drug: Acetaminophen PO 1000 mg PO once Route: PO; vc1 06:02 Follow up: Response: No adverse reaction bm8 Disposition Summary: 04/25/24 06:33 Discharge Ordered Notes: Location: Home sp4 Problem: new sp4 Symptoms: have improved sp4 Condition: Stable sp4 Diagnosis - Tension-type headache sp4 - Essential (primary) hypertension sp4 Followup: sp4 - With: Private Physician - When: 7 - 10 days - Reason: Recheck today's complaints Discharge Instructions: - Discharge Summary Sheet sp4 - General Headache Without Cause, Akmb-[id number] sp4 Forms: - Patient Portal Instructions sp4 Signatures: Deyanira Medina RN RN vc1 Dion Randhawa MD MD sp4 Riaz Lafleur RN RN bm8
[2024-04-25 12:02] VITALS: TEMP 98.4
[2024-04-25 12:05] VITALS: BP 152/93; O2SAT 95
== END 2024-04-25 06:38 | disposition home or self-care (01) ==
LOC: ER 04:40
DX: G44.209 Tension-type headache, unspecified, not intractable (principal); I10 Essential (primary) hypertension
CPT/HCPCS: 99284

== ENCOUNTER 2024-05-01 09:26 | Emergency (ER) | payer OTHER ==
--- NOTE | 2024-05-01 10:10 | EDPHYS ---
Physician Documentation [facility] Name: Marjan Kolb Age: 69 yrs Sex: Female : 1955 Arrival Date: 05/01/2024 Time: 09:26 Bed IW4 Private MD: ED Physician Heladio Collins HPI: 05/01 10:05 This 69 yrs old Female presents to ER via Unassigned with complaints of High Blood sp3 Pressure, Skin Sore(s). 10:05 69-year-old female with extensive past medical history well-known to the ED presents sp3 with chief complaint of a sore on the top of her head". Please see chart for past medical history. Patient has had over 300 visits to this emergency department. Patient is already seeing her primary care physician for this issue. She denies any fever, rash, or any other ROS at this time.. Historical: - Allergies: 10:06 ACETAMINOPHEN; ss 10:06 adhesive tape; ss 10:06 Azithromycin; ss 10:06 butorphanol tartrate; ss 10:06 Fentanyl; ss 10:06 HYDROCODONE; ss 10:06 metoclopramide HCl; ss 10:06 Trimethoprim-Sulfamethoxazole; ss - PMHx: 10:06 a-fib; angina pectoris; Migraine; NSTEMI; ss - PSHx: 10:06 Cholecystectomy; coronary stents; shoulder replacement (NSTE); ss - Immunization history:: Client reports receiving the 2nd dose of the Covid vaccine. - Infectious Disease History:: Denies. - Social history:: Smoking status: Patient/guardian denies using tobacco, the patient reports quitting approximately 5 years ago. ROS: 10:08 Constitutional: Negative for fever, chills, and weight loss, Eyes: Negative for injury, sp3 pain, redness, and discharge, ENT: Negative for injury, pain, and discharge, Neck: Negative for injury, pain, and swelling, Cardiovascular: Negative for chest pain, palpitations, and edema, Respiratory: Negative for shortness of breath, cough, wheezing, and pleuritic chest pain, Abdomen/GI: Negative for abdominal pain, nausea, vomiting, diarrhea, and constipation, Back: Negative for injury and pain, MS/Extremity: Negative for injury and deformity, Neuro: Negative for headache, weakness, numbness, tingling, and seizure, Psych: Negative for depression, anxiety, suicide ideation, homicidal ideation, and hallucinations, Allergy/Immunology: Negative for hives, rash, and allergies, Endocrine: Negative for neck swelling, polydipsia, polyuria, polyphagia, and marked weight changes, Hematologic/Lymphatic: Negative for swollen nodes, abnormal bleeding, and unusual bruising, 10:08 All other systems are negative, Exam: 10:09 Constitutional: This is a well developed, well nourished patient who is awake, alert, sp3 and in no acute distress. Eyes: Pupils equal round and reactive to light, extra-ocular motions intact. Lids and lashes normal. Conjunctiva and sclera are non-icteric and not injected. Cornea within normal limits. Periorbital areas with no swelling, redness, or edema. ENT: Nares patent. No nasal discharge, no septal abnormalities noted. External auditory canals are clear. Oropharynx with no redness, swelling, or masses, exudates, or evidence of obstruction, uvula midline. Mucous membranes moist. Neck: Trachea midline, no thyromegaly or masses palpated, and no cervical lymphadenopathy. Supple, full range of motion without nuchal rigidity, or vertebral point tenderness. No Meningismus. Chest/axilla: Normal chest wall appearance and motion. Nontender with no deformity. No lesions are appreciated. Cardiovascular: Regular rate and rhythm with a normal S1 and S2. No gallops, murmurs, or rubs. Normal PMI, no JVD. No pulse deficits. Respiratory: Lungs have equal breath sounds bilaterally, clear to auscultation and percussion. No rales, rhonchi or wheezes noted. No increased work of breathing, no retractions or nasal flaring. Abdomen/GI: Soft, non-tender, with normal bowel sounds. No distension or tympany. No guarding or rebound. No evidence of tenderness throughout. Back: No spinal tenderness. No costovertebral tenderness. Full range of motion. 10:09 Skin: Small 4 mm scab at the very top of the head consistent with possible trauma. No rash, erythema, infection under underlying abnormality noted.. Vital Signs: 10:02 BP 169 / 116; Pulse 76; Resp 16; Temp 97.9(TE); Pulse Ox 99% on R/A; Weight 81.19 kg; ss Height 5 ft. 4 in. ; Pain 8/; 10:02 Body Mass Index 30.72 (81.19 kg, 162.56 cm) 10:02 Pain Scale: Adult ss MDM: 10:03 Medical Screening Exam initiated sp3 Administered Medications: No medications were administered Disposition Summary: 05/01/24 10:09 Discharge Ordered Notes: Location: Home sp3 Condition: Stable sp3 Diagnosis - Scab on scalp, possible trauma sp3 Followup: sp3 - With: Private Physician - When: Upon discharge from the Emergency Department - Reason: Continuance of care Discharge Instructions: - Discharge Summary Sheet ss - Rash, Adult sp3 Forms: - Medication Reconciliation Form sp3 - Antibiotic Education sp3 - Prescription Opioid Use sp3 - Patient Portal Instructions sp3 - Leadership Thank You Letter sp3 Signatures: Sandra Green, ASHLEY RN Heladio Collins MD MD sp3
--- NOTE | 2024-05-01 10:10 | ER ---
Nurse's Notes [facility] Name: Marjan Kolb Age: 69 yrs Sex: Female : 1955 Arrival Date: 05/01/2024 Time: 09:26 Bed IW4 Private MD: Diagnosis: Scab on scalp, possible trauma Presentation: 05/01 10:02 Chief complaint: Patient states: Here to have bump on head assessed. Pt reports the ss bump has gotten bigger in the past 2 months. Coronavirus screen: Client denies travel out of the [place] in the last 14 days. Ebola Screen: Patient denies exposure to infectious person. Patient denies travel to an Ebola-affected area in the 21 days before illness onset. Initial Sepsis Screen: Does the patient meet any 2 criteria? No. Patient's initial sepsis screen is negative. Does the patient have a suspected source of infection? No. Patient's initial sepsis screen is negative. Risk Assessment: Do you want to hurt yourself or someone else? Patient reports no desire to harm self or others. Onset of symptoms was February 2024. 10:02 Method Of Arrival: Ambulatory ss 10:02 Acuity: BLAYNE 5 ss Historical: - Allergies: 10:06 ACETAMINOPHEN; ss 10:06 adhesive tape; ss 10:06 Azithromycin; ss 10:06 butorphanol tartrate; ss 10:06 Fentanyl; ss 10:06 HYDROCODONE; ss 10:06 metoclopramide HCl; ss 10:06 Trimethoprim-Sulfamethoxazole; ss - PMHx: 10:06 a-fib; angina pectoris; Migraine; NSTEMI; ss - PSHx: 10:06 Cholecystectomy; coronary stents; shoulder replacement (NSTE); ss - Immunization history:: Client reports receiving the 2nd dose of the Covid vaccine. - Infectious Disease History:: Denies. - Social history:: Smoking status: Patient/guardian denies using tobacco, the patient reports quitting approximately 5 years ago. Screenin:07 Abuse screen: Denies threats or abuse. Denies injuries from another. Nutritional ss screening: No deficits noted. Tuberculosis screening: Never had TB. Assessment: 10:07 General: Appears in no apparent distress. comfortable, Behavior is calm, cooperative, ss Denies fever, feeling ill, fatigue, chills. Pain: Complains of pain in top of hfead Pain currently is 8 out of 10 on a pain scale. Pain began x 2 months. Neuro: Level of Consciousness is awake, alert, obeys commands, Oriented to person, place, time, situation. Respiratory: Airway is patent Respiratory effort is even, unlabored, Respiratory pattern is regular, symmetrical. GI: Patient currently denies abdominal pain, nausea, vomiting. Derm: Skin is intact, is healthy with good turgor, Skin is pink, warm \T\ dry. normal. Vital Signs: 10:02 BP 169 / 116; Pulse 76; Resp 16; Temp 97.9(TE); Pulse Ox 99% on R/A; Weight 81.19 kg; ss Height 5 ft. 4 in. ; Pain 8/10; 10:02 Body Mass Index 30.72 (81.19 kg, 162.56 cm) ss 10:02 Pain Scale: Adult ss ED Course: 09:29 Patient arrived in ED. mr 09:35 Heladio Collins MD is Attending Physician. sp3 10:06 Triage completed. ss 10:06 Arm band placed on right wrist. ss 10:07 Patient has correct armband on for positive identification. ss 10:07 No provider procedures requiring assistance completed. Patient did not have IV access ss during this emergency room visit. 10:16 Sandra Green, ASHLEY is Primary Nurse. ss Administered Medications: No medications were administered Medication: 10:07 VIS not applicable for this client. ss Outcome: 10:09 Discharge ordered by . sp3 10:16 Discharged to home ambulatory, ss 10:16 Condition: good 10:16 Discharge instructions given to patient, family, Instructed on discharge instructions, follow up and referral plans. Demonstrated understanding of instructions, follow-up care, 10:16 Patient left the ED. ss Signatures: Jessie Hill, Reg Reg mr Sandra Green, ASHLEY RN Heladio Collins MD MD sp3
[2024-05-01 10:37] VITALS: BP 169/116; TEMP 97.9; O2SAT 99
== END 2024-05-01 10:16 | disposition home or self-care (01) ==
LOC: ER 09:26
DX: S00.01XA Abrasion of scalp, initial encounter (principal)
CPT/HCPCS: 99282

== ENCOUNTER 2024-05-11 12:59 | Emergency (ER) | payer OTHER ==
[2024-05-11 13:50] LABS: Absolute Lymphocytes (CBC) 0.6 K/uL (0.7-4.9); Absolute Monocytes 0.2 K/uL (0.1-1.3); Absolute Neutrophil 3.9 K/uL (1.8-8.0); Basophils % 0.5 % (0-1.3); Eosinophils % 0.2 % (0-4.4); Hematocrit 33.4 % (36.0-45.0); Hemoglobin 10.4 g/dL (12.0-15.0); Lymphocytes % 12.5 % (15.3-44.8); MCH 25.8 pg (27.0-35.0); MCHC 31.2 g/dL (32.0-36.0); MCV 82.8 fL (80-100); MPV 7.4 fL (7.6-11.3); Monocytes % 3.3 % (3.3-12.3); Neutrophils % 83.5 % (41.7-73.7); Platelets 167 thou/uL (152-406); RBC Red Blood Cell Count 4.04 M/uL (3.86-4.86); Red Cell Distribution Width 18.5 % (12.1-15.2)
--- NOTE | 2024-05-11 14:01 | ER ---
Nurse's Notes [facility] Name: Marjan Kolb Age: 69 yrs Sex: Female : 1955 Arrival Date: 05/11/2024 Time: 12:59 Bed 16 Private MD: Diagnosis: Near syncope Presentation: 05/11 13:04 Chief complaint: EMS states: Syncopal episode while shopping, assisted to floor by hb bystanders. Had chest pressure this morning, relieved by Nitro x 3 and ASA 324 mg. NSR on EKG. Coronavirus screen: At this time, the client does not indicate any symptoms associated with coronavirus-19. Ebola Screen: No symptoms or risks identified at this time. Initial Sepsis Screen: Does the patient meet any 2 criteria? No. Patient's initial sepsis screen is negative. Does the patient have a suspected source of infection? No. Patient's initial sepsis screen is negative. Risk Assessment: Do you want to hurt yourself or someone else? Patient reports no desire to harm self or others. Onset of symptoms was May 11, 2024. 13:04 Method Of Arrival: EMS: [facility] hb 13:04 Acuity: BLAYNE 3 hb Historical: - Allergies: 13:06 ACETAMINOPHEN; hb 13:06 adhesive tape; hb 13:06 Azithromycin; hb 13:06 butorphanol tartrate; hb 13:06 Fentanyl; hb 13:06 HYDROCODONE; hb 13:06 metoclopramide HCl; hb 13:06 Trimethoprim-Sulfamethoxazole; hb - PMHx: 13:06 a-fib; angina pectoris; Migraine; NSTEMI; hb - PSHx: 13:06 Cholecystectomy; coronary stents; shoulder replacement (NSTE); hb - Immunization history:: Adult Immunizations up to date. - Infectious Disease History:: Denies. - Social history:: Smoking status: Patient denies any tobacco usage or history of. Screenin:05 [facility] ED Fall Risk Assessment (Adult) History of falling in the last 3 months, rs5 including since admission No falls in past 3 months (0 pts) Confusion or Disorientation No (0 pts) Intoxicated or Sedated No (0 pts) Impaired Gait Yes (1 pt) Mobility Assist Device Used Yes (1 pt) Altered Elimination No (0 pt) Score/Fall Risk Level 0 - 2 = Low Risk Oriented to surroundings, Maintained a safe environment. Abuse screen: Denies threats or abuse. Nutritional screening: No deficits noted. Tuberculosis screening: No symptoms or risk factors identified. Assessment: 13:05 General: Appears in no apparent distress. uncomfortable, Behavior is cooperative, rs5 anxious. Pain: Denies pain. Neuro: Level of Consciousness is awake, alert, obeys commands, Oriented to person, place, time, situation. Cardiovascular: Patient's skin is warm and dry. Rhythm is regular. Respiratory: Airway is patent Respiratory effort is even, unlabored, Respiratory pattern is regular, symmetrical. GI: Abdomen is round non-distended, Abd is soft and non tender X 4 quads. : No signs and/or symptoms were reported regarding the genitourinary system. EENT: No signs and/or symptoms were reported regarding the EENT system. Derm: Skin is intact, Skin is pink, warm \T\ dry. Musculoskeletal: Range of motion: intact in all extremities. 14:07 Reassessment: Patient and/or family updated on plan of care and expected duration. Pain rs5 level reassessed. Patient is alert, oriented x 3, equal unlabored respirations, skin warm/dry/pink. Vital Signs: 13:07 BP 169 / 72; Pulse 68; Resp 16; Temp 97.5; Pulse Ox 98% on R/A; Pain 0/10; hb 14:10 BP 160 / 77; Pulse 71; Resp 17; Pulse Ox 98% on R/A; rs5 13:07 Pain Scale: Adult hb ED Course: 13:01 Patient arrived in ED. sp3 13:01 Heladio Collins MD is Attending Physician. sp3 13:05 Patient has correct armband on for positive identification. Placed in gown. Bed in low rs5 position. Call light in reach. Side rails up X2. 13:05 No provider procedures requiring assistance completed. rs5 13:06 Triage completed. hb 13:07 Arm band placed on. hb 13:14 Roger Norton, RN is Primary Nurse. rs5 13:43 Basic Metabolic Panel Sent. cm10 13:43 CBC with Diff Sent. cm10 13:43 Troponin HS Sent. cm10 13:43 Initial lab(s) drawn, by me, sent to lab. Inserted saline lock: 22 gauge in right cm10 ,using aseptic technique. foot Blood collected. Flushed with 10 mL NS. 14:10 Provided Education on: discharge instructions . rs5 14:13 IV discontinued, intact, bleeding controlled, No redness/swelling at site. Pressure rs5 dressing applied. Administered Medications: No medications were administered Medication: 14:10 VIS not applicable for this client. rs5 Outcome: 14:00 Discharge ordered by . sp3 14:13 Discharged to home via wheelchair, with family, rs5 14:13 Condition: stable rs5 14:13 Discharge instructions given to patient, family, Instructed on discharge instructions, follow up and referral plans. Demonstrated understanding of instructions, follow-up care, 14:14 Patient left the ED. rs5 Signatures: Tata Rivera RN RN Heladio Johnson MD MD sp3 Roger Norton RN RN rs5 Anika Simons RN RN cm10 Corrections: (The following items were deleted from the chart) 15:42 14:20 IV discontinued, intact, bleeding controlled, No redness/swelling at site. rs5 Pressure dressing applied, rs5 15:42 15:41 BP 160 / 77; Pulse 71bpm; Resp 17bpm; Pulse Ox 98% RA; rs5 rs5
--- NOTE | 2024-05-11 14:01 | EDPHYS ---
Physician Documentation [facility] Name: Marjan Kolb Age: 69 yrs Sex: Female : 1955 Arrival Date: 05/11/2024 Time: 12:59 Bed 16 Private MD: ED Physician Heladio Collins HPI: 05/11 13:11 This 69 yrs old Female presents to ER via EMS with complaints of Near Syncope. sp3 13:11 69-year-old female with a history of atrial fibrillation, NSTEMI, angina in the past sp3 multiple visits well-documented in the ED who presents with chief complaint near syncope. Of relevant history, patient's spouse recently 2 days ago. Patient was here in the ED visiting expressing her appreciation for continued care of her throughout the years. She left here and went to [employer] to shop where she had a near syncopal episode where she was helped to the ground by bystanders. No direct trauma or head injury. Patient states she had no prodromal event including chest pain, shortness of breath, headache or any significant event. Currently she is asymptomatic resting comfortably. ROS otherwise negative.. Historical: - Allergies: 13:06 ACETAMINOPHEN; hb 13:06 adhesive tape; hb 13:06 Azithromycin; hb 13:06 butorphanol tartrate; hb 13:06 Fentanyl; hb 13:06 HYDROCODONE; hb 13:06 metoclopramide HCl; hb 13:06 Trimethoprim-Sulfamethoxazole; hb - PMHx: 13:06 a-fib; angina pectoris; Migraine; NSTEMI; hb - PSHx: 13:06 Cholecystectomy; coronary stents; shoulder replacement (NSTE); hb - Immunization history:: Adult Immunizations up to date. - Infectious Disease History:: Denies. - Social history:: Smoking status: Patient denies any tobacco usage or history of. ROS: 13:14 Constitutional: Negative for fever, chills, and weight loss, Eyes: Negative for injury, sp3 pain, redness, and discharge, Neck: Negative for injury, pain, and swelling, Cardiovascular: Negative for chest pain, palpitations, and edema, Respiratory: Negative for shortness of breath, cough, wheezing, and pleuritic chest pain, Abdomen/GI: Negative for abdominal pain, nausea, vomiting, diarrhea, and constipation, Back: Negative for injury and pain, MS/Extremity: Negative for injury and deformity, Skin: Negative for injury, rash, and discoloration, Psych: Negative for depression, anxiety, suicide ideation, homicidal ideation, and hallucinations, Allergy/Immunology: Negative for hives, rash, and allergies, Endocrine: Negative for neck swelling, polydipsia, polyuria, polyphagia, and marked weight changes, Hematologic/Lymphatic: Negative for swollen nodes, abnormal bleeding, and unusual bruising, 13:14 All other systems are negative, Exam: 13:15 Constitutional: This is a well developed, well nourished patient who is awake, alert, sp3 and in no acute distress. Head/Face: Normocephalic, atraumatic. Eyes: Pupils equal round and reactive to light, extra-ocular motions intact. Lids and lashes normal. Conjunctiva and sclera are non-icteric and not injected. Cornea within normal limits. Periorbital areas with no swelling, redness, or edema. ENT: Nares patent. No nasal discharge, no septal abnormalities noted. External auditory canals are clear. Oropharynx with no redness, swelling, or masses, exudates, or evidence of obstruction, uvula midline. Mucous membranes moist. Neck: Trachea midline, no thyromegaly or masses palpated, and no cervical lymphadenopathy. Supple, full range of motion without nuchal rigidity, or vertebral point tenderness. No Meningismus. Chest/axilla: Normal chest wall appearance and motion. Nontender with no deformity. No lesions are appreciated. Cardiovascular: Regular rate and rhythm with a normal S1 and S2. No gallops, murmurs, or rubs. Normal PMI, no JVD. No pulse deficits. Respiratory: Lungs have equal breath sounds bilaterally, clear to auscultation and percussion. No rales, rhonchi or wheezes noted. No increased work of breathing, no retractions or nasal flaring. Abdomen/GI: Soft, non-tender, with normal bowel sounds. No distension or tympany. No guarding or rebound. No evidence of tenderness throughout. Back: No spinal tenderness. No costovertebral tenderness. Full range of motion. Skin: Warm, dry with normal turgor. Normal color with no rashes, no lesions, and no evidence of cellulitis. MS/ Extremity: Pulses equal, no cyanosis. Neurovascular intact. Full, normal range of motion. Neuro: Awake and alert, GCS 15, oriented to person, place, time, and situation. Cranial nerves II-XII grossly intact. Motor strength 5/5 in all extremities. Sensory grossly intact. Cerebellar exam normal. Normal gait. Psych: Awake, alert, with orientation to person, place and time. Behavior, mood, and affect are within normal limits. 13:15 ECG was reviewed by the Attending Physician. EKG demonstrates normal sinus rhythm at 60 bpm with normal intervals except QTc of 493, normal QRS, high voltage and nonspecific diffuse ST's ST changes without evidence of acute ischemia. Vital Signs: 13:07 BP 169 / 72; Pulse 68; Resp 16; Temp 97.5; Pulse Ox 98% on R/A; Pain 0/10; hb 14:10 BP 160 / 77; Pulse 71; Resp 17; Pulse Ox 98% on R/A; rs5 13:07 Pain Scale: Adult hb MDM: 13:01 Medical Screening Exam initiated sp3 13:16 Data reviewed: vital signs, nurses notes, old medical records, lab test result(s), EKG. sp3 ED course: 69-year-old female well-known to the ED now presents with near syncope while shopping. I do not believe patient had a significant cardiac event. Differential diagnosis includes orthostatic hypotension, dehydration, recent grief reaction, and to a lesser degree cardiac arrhythmia or ACS. Will obtain general labs, troponin and EKG has already been performed. If workup negative we will safely discharge patient home to PCP/cardiology follow-up as needed.. 13:59 ED course: Patient states she has to get to the home for her spouse sp3 coordination of services. We will follow-up with her on any outstanding labs that are significantly abnormal. Otherwise she feels back to baseline and states she wants to leave.. 05/11 13:02 Order name: Basic Metabolic Panel; Complete Time: 14:12 sp3 05/11 13:02 Order name: CBC with Diff; Complete Time: 13:59 sp3 05/11 13:02 Order name: Troponin HS; Complete Time: 14:12 sp3 05/11 13:02 Order name: EKG; Complete Time: 13: sp3 05/11 13:02 Order name: Cardiac monitoring; Complete Time: 13: sp3 05/11 13:02 Order name: EKG - Nurse/Tech; Complete Time: 13:20 sp3 05/11 13:02 Order name: IV Saline Lock; Complete Time: 13:43 sp3 05/11 13:02 Order name: Labs collected and sent; Complete Time: 13:43 sp3 Administered Medications: No medications were administered Disposition Summary: 05/11/24 14:00 Discharge Ordered Notes: Location: Home sp3 Condition: Stable sp3 Diagnosis - Near syncope sp3 Discharge Instructions: - Discharge Summary Sheet sp3 - Near-Syncope, [id number] sp3 Forms: - Medication Reconciliation Form sp3 - Antibiotic Education sp3 - Prescription Opioid Use sp3 - Patient Portal Instructions sp3 - Leadership Thank You Letter sp3 Signatures: Dispatcher [employer] Tata Arriola RN RN hb Patel, Setul, MD MD sp3
[2024-05-11 14:10] LABS: Anion Gap 9.9 mEq/L (5.0-15.0); Potassium 3.9 mEq/L (3.5-5.1); Troponin High Sensitivity 17.2 pg/mL (<58.9)
[2024-05-11 14:22] VITALS: BP 169/72; TEMP 97.5; O2SAT 98
--- NOTE | 2024-05-13 13:08 | EKG ---
Test Date: 2024-05-11 Test Time: 13:06:16 Rn Admit: L[place]SE[place] MEASUREMENT RESULTS: Intervals: Rate: 61 ME: 196 QRSD: 90 QT: 490 QTc: 493 [place]: P: 39 ME: 196 QRS: 13 T: 36 INTERPRETIVE STATEMENTS: Normal sinus rhythm Nonspecific T wave abnormality Prolonged QT Abnormal ECG Compared to ECG 04/16/2024 17:53:11 Left ventricular hypertrophy no longer present T-wave abnormality still present Electronically Signed On 05-13-24 13:04:49 TIRE GROOVER by Tommy Da Silva
== END 2024-05-11 14:14 | disposition home or self-care (01) ==
LOC: ER 12:59
DX: R55 Syncope and collapse (principal); I48.91 Unspecified atrial fibrillation; I25.2 Old myocardial infarction; Z95.5 Presence of coronary angioplasty implant and graft; Z88.8 Allergy status to other drugs, medicaments and biological substances; Z88.5 Allergy status to narcotic agent; Z91.09 Other allergy status, other than to drugs and biological substances
CPT/HCPCS: 36415; 80048; 84484; 85025; 93005; 99284

== ENCOUNTER 2024-05-17 08:03 | Emergency (ER) | payer OTHER ==
[2024-05-17] MEDS ORDERED: ALBUTEROL 2.5 MG/3 ML NEB SOL ONE (08:32)
[2024-05-17] MEDS ORDERED: IPRATROPIUM BROM 0.5MG/2.5ML ONE (08:33)
[2024-05-17] MEDS ORDERED: predniSONE 20 MG TAB ONE (08:33)
[2024-05-17 09:05] LABS: SARS-CoV-2 Antigen CONTROL BLUE LINE VIS/BG OK; SARS-CoV-2 Antigen Rapid Res Negative (Negative)
--- NOTE | 2024-05-17 09:48 | EDPHYS ---
Physician Documentation [facility] Name: Marjan Kolb Age: 69 yrs Sex: Female : 1955 Arrival Date: 05/17/2024 Time: 08:03 Bed 15 Private MD: ED Physician Yayo August HPI: 05/17 09:07 This 69 yrs old Female presents to ER via Wheelchair with complaints of ec2 Breathing Difficulty. 09:07 Patient arrives today for evaluation of cough and cold symptoms. Patient reports that ec2 she is manage worsening cough and cold symptoms for couple of days. Patient reports some breathing difficulty and chest tightness. Patient reports frequent cough.. Historical: - Allergies: 08:09 adhesive tape; iw 08:09 ACETAMINOPHEN; iw 08:09 Azithromycin; iw 08:09 butorphanol tartrate; iw 08:09 Fentanyl; iw 08:09 HYDROCODONE; iw 08:09 metoclopramide HCl; iw 08:09 Trimethoprim-Sulfamethoxazole; iw - PMHx: 08:09 a-fib; Migraine; angina pectoris; NSTEMI; iw - PSHx: 08:09 coronary stents; Cholecystectomy; shoulder replacement (NSTE); iw - Immunization history:: Adult Immunizations up to date. - Infectious Disease History:: Denies. - Social history:: Smoking status: Patient denies any tobacco usage or history of. ROS: 09:07 Constitutional: as per hpi ec2 Exam: 09:07 Constitutional: GEN: NAD Head: atraumatic Eyes: EOMI Ears: External ears are ec2 normal. CV: regular rate LUNGS: no respiratory distress, no wheezes or rales or rhonchi ABD: non-distended SKIN: no evidence of rashes MSK: no evidence of trauma Vital Signs: 08:10 BP 184 / 104; Pulse 86; Resp 19; Temp 97.2; Pulse Ox 98% ; Weight 81.19 kg; Height 5 iw ft. 4 in. ; Pain 8/10; 09:30 BP 179 / 98; Pulse 89; Resp 18; Temp 97.8; Pulse Ox 98% on R/A; ph 08:10 Body Mass Index 30.72 (81.19 kg, 162.56 cm) iw 08:10 Pain Scale: Adult iw MDM: 08:12 Medical Screening Exam initiated ec2 08:35 ED course: EKG independently reviewed and interpreted by me, shows atrial fibrillation, ec2 rate of 73, no acute ST segment elevations, PVC noted,. 09:07 Data reviewed: vital signs, nurses notes. ED course: Patient arrives today for upper ec2 respiratory symptoms. Examination yields reassuring cardiopulmonary examination. Viral swabs negative. EKG as above. Chest x-ray independently reviewed and interpreted by me, shows no focal opacities or lobar pneumonia noted. Appears similar when compared to external records. Suspect COPD exacerbation. Will prescribe the patient steroids as well as albuterol inhaler.. 09:47 ED course: On reassessment patient is well-appearing no acute distress. Will discharge ec2 home. Return precautions given.. 05/17 08:12 Order name: Influenza Screen (a \T\ B); Complete Time: 09:07 ec2 05/17 08:12 Order name: SARS RAPID; Complete Time: 09:07 ec2 05/17 08:12 Order name: CXR XRAY ec2 05/17 08:20 Order name: EKG - Nurse/Tech; Complete Time: 08:50 ec2 Administered Medications: 08:50 Drug: DuoNeb Nebulize (3:1) (2.5 mg - 0.5 mg) 3 ml Nebulizer once Route: Nebulizer; ph 10:19 Follow up: Response: No adverse reaction ph 08:50 Drug: predniSONE PO 40 mg PO once Route: PO; ph 10:19 Follow up: Response: No adverse reaction ph Disposition Summary: 05/17/24 09:47 Discharge Ordered Notes: Location: Home ec2 Condition: Stable ec2 Diagnosis - COPD/ Chronic obstructive pulmonary disease with (acute) exacerbation ec2 Followup: ec2 - With: Private Physician - When: - Reason: Re-evaluation by your physician Discharge Instructions: - Discharge Summary Sheet ec2 - Chronic Obstructive Pulmonary Disease Exacerbation ec2 Forms: - Medication Reconciliation Form ec2 - Antibiotic Education ec2 - Prescription Opioid Use ec2 - Patient Portal Instructions ec2 - Leadership Thank You Letter ec2 Prescriptions: - albuterol sulfate 90 mcg/actuation Inhalation HFA Aerosol Inhaler - inhale 2 puff INHALATION route every 2 to 4 hours as needed for bronchospasm; ec2 administer via ventilator; 1 unit; Refills: 0, Product Selection Permitted - Augmentin 875-125 mg Oral tablet - take 1 tablet ORAL route every 12 hours for 5 days; 10 tablet; Refills: 0, ec2 Product Selection Permitted - Tessalon Perles 100 mg Oral Capsule - take 1 capsule ORAL route every 8 hours As needed; 15 capsule; Refills: 0, ec2 Product Selection Permitted - Prednisone 20 mg Oral Tablet - take 2 tablets ORAL route once daily for 5 days; 10 tablet; Refills: 0, Product ec2 Selection Permitted Signatures: Dispatcher [employer] Jacquelin Rios RN RN Solange Bennett RN RN ph Corral, Edwin, MD MD ec2
--- NOTE | 2024-05-17 09:48 | ER ---
Nurse's Notes [facility] Name: Marjan Kolb Age: 69 yrs Sex: Female : 1955 Arrival Date: 05/17/2024 Time: 08:03 Bed 15 Private MD: Diagnosis: COPD/ Chronic obstructive pulmonary disease with (acute) exacerbation Presentation: 05/17 08:07 Chief complaint: Patient states: feels like I can't breathe all night long, has had iw cough and fever and my lungs feel like they are stopped up. Coronavirus screen: Client presents with at least one sign or symptom that may indicate coronavirus-19. Ebola Screen: No symptoms or risks identified at this time. Initial Sepsis Screen: Does the patient meet any 2 criteria? No. Patient's initial sepsis screen is negative. Does the patient have a suspected source of infection? No. Patient's initial sepsis screen is negative. Risk Assessment: Do you want to hurt yourself or someone else? Patient reports no desire to harm self or others. 08:07 Method Of Arrival: Wheelchair iw 08:07 Acuity: BLAYNE 3 iw 08:52 Onset of symptoms was May 17, 2024. ph Triage Assessment: 08:52 General: Appears in no apparent distress. Respiratory: Onset: The symptoms/episode ph began/occurred yesterday, the patient has mild shortness of breath. Historical: - Allergies: 08:09 adhesive tape; iw 08:09 ACETAMINOPHEN; iw 08:09 Azithromycin; iw 08:09 butorphanol tartrate; iw 08:09 Fentanyl; iw 08:09 HYDROCODONE; iw 08:09 metoclopramide HCl; iw 08:09 Trimethoprim-Sulfamethoxazole; iw - PMHx: 08:09 a-fib; Migraine; angina pectoris; NSTEMI; iw - PSHx: 08:09 coronary stents; Cholecystectomy; shoulder replacement (NSTE); iw - Immunization history:: Adult Immunizations up to date. - Infectious Disease History:: Denies. - Social history:: Smoking status: Patient denies any tobacco usage or history of. Screenin:[facility] ED Fall Risk Assessment (Adult) History of falling in the last 3 months, ph including since admission Yes- fall prone (multiple falls) (3 pts) Confusion or Disorientation No (0 pts) Intoxicated or Sedated No (0 pts) Impaired Gait No (0 pts) Mobility Assist Device Used Yes (1 pt) Altered Elimination No (0 pt) Score/Fall Risk Level 3 or more points = High Risk Oriented to surroundings, Maintained a safe environment, Hourly rounding (assess needs \T\ fall precautionary measures) done, Used ambulatory aids as needed (educated on \T\ assisted with). Abuse screen: Denies threats or abuse. Denies injuries from another. Nutritional screening: No deficits noted. Tuberculosis screening: No symptoms or risk factors identified. Assessment: 08:50 General: Appears in no apparent distress. comfortable, Behavior is calm, cooperative, ph Reports chills for 12-24 hours. Pain: Complains of pain in chest. Neuro: Level of Consciousness is awake, alert, obeys commands, Oriented to person, place, time, situation. Cardiovascular: Reports shortness of breath, Rhythm is sinus rhythm. Respiratory: Reports shortness of breath at rest Airway is patent Respiratory effort is even, unlabored, Respiratory pattern is regular, symmetrical, Breath sounds are clear bilaterally. GI: No signs and/or symptoms were reported involving the gastrointestinal system. EENT: Reports nasal congestion nasal discharge pain when swallowing. Derm: Skin is pink, warm \T\ dry. Musculoskeletal: Circulation, motion, and sensation intact. Range of motion: intact in all extremities. 09:14 Reassessment: Patient appears in no apparent distress at this time. Patient and/or ph family updated on plan of care and expected duration. Pain level reassessed. Patient is alert, oriented x 3, equal unlabored respirations, skin warm/dry/pink. Pt ambulatory to restroom, Spo2 95% when returning to room, quickly increased to 98% RA, pt requesting oxygen, placed on 2L NC for comfort. 10:18 Reassessment: Patient appears in no apparent distress at this time. Patient and/or ph family updated on plan of care and expected duration. Pain level reassessed. Patient is alert, oriented x 3, equal unlabored respirations, skin warm/dry/pink. Vital Signs: 08:10 BP 184 / 104; Pulse 86; Resp 19; Temp 97.2; Pulse Ox 98% ; Weight 81.19 kg; Height 5 iw ft. 4 in. ; Pain 8/10; 09:30 BP 179 / 98; Pulse 89; Resp 18; Temp 97.8; Pulse Ox 98% on R/A; ph 08:10 Body Mass Index 30.72 (81.19 kg, 162.56 cm) iw 08:10 Pain Scale: Adult ED Course: 08:05 Patient arrived in ED. ra3 08:09 Triage completed. iw 08:10 Yayo August MD is Attending Physician. ec2 08:10 Arm band placed on. iw 08:17 Solange Bennett RN is Primary Nurse. ph 08:50 SARS RAPID Sent. ph 08:50 Influenza Screen (a \T\ B) Sent. ph 08:52 Patient has correct armband on for positive identification. Bed in low position. Call ph light in reach. Side rails up X 1. Client placed on continuous cardiac and pulse oximetry monitoring. NIBP monitoring applied. potline monitor on. Door closed. Noise minimized. Warm blanket given. Pillow given. PO fluids given. 08:53 Provided Education on: Estimated time for test results. ph 08:53 No provider procedures requiring assistance completed. ph 09:03 CXR XRAY In Process Unspecified. EDMS 10:19 Patient did not have IV access during this emergency room visit. ph Administered Medications: 08:50 Drug: DuoNeb Nebulize (3:1) (2.5 mg - 0.5 mg) 3 ml Nebulizer once Route: Nebulizer; ph 10:19 Follow up: Response: No adverse reaction ph 08:50 Drug: predniSONE PO 40 mg PO once Route: PO; ph 10:19 Follow up: Response: No adverse reaction ph Medication: 08:52 VIS not applicable for this client. ph Outcome: 09:47 Discharge ordered by . ec2 10:19 Discharged to home via wheelchair, ph 10:19 Condition: good 10:19 Discharge instructions given to patient, Instructed on discharge instructions, follow up and referral plans. medication usage, Demonstrated understanding of instructions, follow-up care, medications, Prescriptions given X 4, 10:19 Patient left the ED. ph Signatures: Dispatcher [employer] Jacquelin Rios RN RN Solange Bennett RN RN Yayo August MD MD ec2 Arleen Chan ra3
--- NOTE | 2024-05-17 10:16 | RAD REPORT ---
EXAMINATION: ONE VIEW CHEST XR CLINICAL INDICATION: Female, 69 years old.,COUGH TECHNIQUE: Frontal chest projection is submitted. Examination is limited by patient positioning and t echnique. COMPARISON: 04/07/2024 FINDINGS: The lungs show similar degree of inflation. Left basilar patchy opacification with blunting of the le ft costophrenic angle, stable. Central vascular congestion again seen. No pneumothorax or other sizable effusion. The heart is again mildly enlarged. Mediastinal contours are unremarkable. Bilatera l reverse shoulder arthroplasties. IMPRESSION: Stable findings suggesting central venous congestion, with left basilar atelectasis and probable smal l effusion.
[2024-05-17 10:28] VITALS: O2SAT 98
[2024-05-17 10:30] VITALS: BP 179/98; TEMP 97.8
== END 2024-05-17 10:19 | disposition home or self-care (01) ==
LOC: ER 08:03
DX: J44.1 Chronic obstructive pulmonary disease with (acute) exacerbation (principal); Z11.52 Encounter for screening for COVID-19
CPT/HCPCS: 36415; 87804 ×2; 71045; 99285; 87811; J7512; J7613; J7644

== ENCOUNTER 2024-05-17 15:44 | Emergency (ER) | payer OTHER ==
--- NOTE | 2024-05-17 17:48 | ER ---
Nurse's Notes [facility] Name: Marjan Kolb Age: 69 yrs Sex: Female : 1955 Arrival Date: 05/17/2024 Time: 15:44 Bed 19 Private MD: Diagnosis: Chest pain, unspecified;Shortness of breath;Acute pharyngitis, unspecified Presentation: 05/17 16:42 Chief complaint: Patient states: shortness of breath onset yesterday. pt states that cm10 the shortness of breath is similar to the shortness of breath she had this morning. pt also reports chest pain. Coronavirus screen: Client denies travel out of the [place] in the last 14 days. Ebola Screen: Patient denies travel to an Ebola-affected area in the 21 days before illness onset. No symptoms or risks identified at this time. Initial Sepsis Screen: Does the patient meet any 2 criteria? No. Patient's initial sepsis screen is negative. Does the patient have a suspected source of infection? No. Patient's initial sepsis screen is negative. Risk Assessment: Do you want to hurt yourself or someone else? Patient reports no desire to harm self or others. Onset of symptoms was May 17, 2024. 16:42 Method Of Arrival: Wheelchair cm10 16:42 Acuity: BLAYNE 3 cm10 Triage Assessment: 16:46 General: Appears in no apparent distress. uncomfortable, Behavior is calm, cooperative. cm10 Neuro: No deficits noted. Level of Consciousness is awake, alert, obeys commands, Oriented to person, place, time, situation, Appropriate for age. Respiratory: No deficits noted. Airway is patent Respiratory effort is even, unlabored, Respiratory pattern is regular, symmetrical. Historical: - Allergies: 16:45 ACETAMINOPHEN; cm10 16:45 adhesive tape; cm10 16:45 Azithromycin; cm10 16:45 butorphanol tartrate; cm10 16:45 Fentanyl; cm10 16:45 HYDROCODONE; cm10 16:45 metoclopramide HCl; cm10 16:45 Trimethoprim-Sulfamethoxazole; cm10 - PMHx: 16:45 a-fib; angina pectoris; Migraine; NSTEMI; HIV positive; cm10 - PSHx: 16:45 Cholecystectomy; shoulder replacement (NSTE); coronary stents; cm10 - Immunization history:: Adult Immunizations up to date. - Infectious Disease History:: Denies. - Social history:: Smoking status: Patient denies any tobacco usage or history of. Screenin:57 [facility] ED Fall Risk Assessment (Adult) History of falling in the last 3 months, me1 including since admission No falls in past 3 months (0 pts) Confusion or Disorientation No (0 pts) Intoxicated or Sedated No (0 pts) Impaired Gait No (0 pts) Mobility Assist Device Used No (0 pt) Altered Elimination No (0 pt) Score/Fall Risk Level 0 - 2 = Low Risk Maintained a safe environment, Provided non-skid footwear, Hourly rounding (assess needs \T\ fall precautionary measures) done. Abuse screen: Denies threats or abuse. Nutritional screening: No deficits noted. Tuberculosis screening: No symptoms or risk factors identified. Assessment: 16:57 General: Appears in no apparent distress. well groomed, well developed, well nourished, me1 Behavior is calm, cooperative, appropriate for age, Reports shortness of breath onset yesterday. pt states that the shortness of breath is similar to the shortness of breath she had this morning. pt also reports chest pain. Pain: Complains of pain in chest Pain does not radiate. Pain currently is 9 out of 10 on a pain scale. Quality of pain is described as heavy, Pain began gradually, Is continuous. Neuro: Level of Consciousness is awake, alert, obeys commands, Oriented to person, place, time, situation, Appropriate for age. Cardiovascular: Patient's skin is warm and dry. Cardiovascular: Reports chest pain, shortness of breath. Respiratory: Reports shortness of breath on exertion cough that is productive, pain with cough Airway is patent Respiratory effort is even, unlabored, Respiratory pattern is regular, symmetrical. GI: No signs and/or symptoms were reported involving the gastrointestinal system. : No signs and/or symptoms were reported regarding the genitourinary system. EENT: Reports pain when swallowing. Derm: Skin is intact, is healthy with good turgor, Skin is pink, warm \T\ dry. Musculoskeletal: No signs and/or symptoms reported regarding the musculoskeletal system. 17:40 Reassessment: Patient refused meds and labs. Wants to go home. me1 Vital Signs: 16:42 BP 173 / 97; Pulse 69; Resp 16; Temp 98.3(TE); Pulse Ox 92% on R/A; Weight 76.66 kg; cm10 Height 5 ft. 4 in. ; Pain 9/10; 18:01 BP 165 / 96; Pulse 67; Resp 17; Pulse Ox 93% on R/A; me1 16:42 Body Mass Index 29.01 (76.66 kg, 162.56 cm) cm10 16:42 Pain Scale: Adult 10 ED Course: 15:46 Patient arrived in ED. mr 15:49 Justus Neil PA is PHCP. cp 15:49 Leyda Capellan MD is Attending Physician. cp 16:45 Triage completed. cm10 16:46 Arm band placed on left wrist. Patient placed in waiting room. 10 16:55 Shira Solomon, ASHLEY is Primary Nurse. me1 16:57 Patient has correct armband on for positive identification. Bed in low position. Call me1 light in reach. Side rails up X2. Provided Education on: POC. Verbalized understanding.. Client placed on continuous cardiac and pulse oximetry monitoring. NIBP monitoring applied. playground monitor on. Pulse ox on. NIBP on. 16:57 No provider procedures requiring assistance completed. Patient maintains SpO2 me1 saturation greater than 95% on room air. 17:40 Patient did not have IV access during this emergency room visit. me1 Administered Medications: 17:53 Not Given (Patient Refused): [id number] mg IVP once me1 17:54 Not Given (Patient Refused): DuoNeb Nebulize (2.5 mg - 0.5 mg) 3 ml Nebulizer once me1 Medication: 16:57 VIS not applicable for this client. me1 Outcome: 17:47 Discharge ordered by MD. cp 18:02 Discharged to home ambulatory, me1 18:02 Condition: stable 18:02 Discharge instructions given to patient, Instructed on discharge instructions, follow up and referral plans. Demonstrated understanding of instructions, follow-up care, 18:02 Patient left the ED. me1 Signatures: Jessie Hill, Reg Reg Justus Neil PA PA Anika Villela, ASHLEY RN cm10 Shira Solomon, ASHLEY RN me1 Corrections: (The following items were deleted from the chart) 16:57 16:42 Chief complaint: Patient states: shortness of breath onset yesterday. pt states me1 that the shortness of breath is similar to the shortness of breath she had this morning. pt also reports chest pain cm10
--- NOTE | 2024-05-17 17:48 | EDPHYS ---
Physician Documentation [facility] Name: Marjan Kolb Age: 69 yrs Sex: Female : 1955 Arrival Date: 05/17/2024 Time: 15:44 Bed 19 Private MD: ED Physician Leyda Capellan HPI: 05/17 16:50 This 69 yrs old Female presents to ER via Wheelchair with complaints of Chest Pain. cp 16:50 The patient or guardian reports chest pain that is located primarily in the anterior cp chest wall. Onset: today. 16:50 The pain does not radiate. cp 16:50 Associated signs and symptoms: Pertinent positives: shortness of breath. The chest pain cp is described as a heaviness. Duration: The patient or guardian reports a single episode, that is still ongoing. The patient has been recently seen at the [facility], today, for similar complaints. Historical: - Allergies: 16:45 ACETAMINOPHEN; cm10 16:45 adhesive tape; cm10 16:45 Azithromycin; cm10 16:45 butorphanol tartrate; cm10 16:45 Fentanyl; cm10 16:45 HYDROCODONE; cm10 16:45 metoclopramide HCl; cm10 16:45 Trimethoprim-Sulfamethoxazole; cm10 - PMHx: 16:45 a-fib; angina pectoris; Migraine; NSTEMI; HIV positive; cm10 - PSHx: 16:45 Cholecystectomy; shoulder replacement (NSTE); coronary stents; cm10 - Immunization history:: Adult Immunizations up to date. - Infectious Disease History:: Denies. - Social history:: Smoking status: Patient denies any tobacco usage or history of. ROS: 16:55 Constitutional: Negative for body aches, chills, fever, poor PO intake, cp 16:55 Eyes: Negative for injury, pain, redness, and discharge, cp 16:55 ENT: Negative for drainage from ear(s), ear pain, sore throat, difficulty swallowing, difficulty handling secretions, 16:55 Cardiovascular: Positive for chest pain, 16:55 Respiratory: Positive for shortness of breath, 16:55 Respiratory: Negative for cough, wheezing, 16:55 Abdomen/GI: Negative for abdominal pain, vomiting, diarrhea, constipation, 16:55 Neuro: Negative for altered mental status, 16:55 All other systems are negative, Exam: 16:04 ECG was reviewed by the Attending Physician. cp 17:00 Constitutional: The patient appears in no acute distress, alert, awake, cp non-diaphoretic, non-toxic, well developed, well nourished, 17:00 Head/Face: Normocephalic, atraumatic. cp 17:00 Eyes: Periorbital structures: appear normal, Conjunctiva: normal, no exudate, no injection, Sclera: no appreciated abnormality, Lids and lashes: appear normal, bilaterally, 17:00 ENT: External ear(s): are unremarkable, Nose: is normal, Mouth: Lips: moist, Oral mucosa: moist, Posterior pharynx: Airway: no evidence of obstruction, patent, 17:00 Chest/axilla: Inspection: normal, 17:00 Cardiovascular: Rate: normal, 17:00 Respiratory: the patient does not display signs of respiratory distress, Respirations: normal, no use of accessory muscles, no retractions, labored breathing, is not present, Breath sounds: decreased breath sounds, that are mild, throughout, wheezing: is not appreciated, 17:00 Abdomen/GI: Exam negative for discomfort, distension, guarding, Inspection: abdomen appears normal, 17:00 Neuro: Orientation: to person, place \T\ time. Mentation: is normal, Vital Signs: 16:42 BP 173 / 97; Pulse 69; Resp 16; Temp 98.3(TE); Pulse Ox 92% on R/A; Weight 76.66 kg; cm10 Height 5 ft. 4 in. ; Pain 9/10; 18:01 BP 165 / 96; Pulse 67; Resp 17; Pulse Ox 93% on R/A; me1 16:42 Body Mass Index 29.01 (76.66 kg, 162.56 cm) cm10 16:42 Pain Scale: Adult cm10 MDM: 16:48 Medical Screening Exam initiated cp 17:46 Data reviewed: vital signs, nurses notes, EKG. cp 17:46 Differential diagnosis: acute myocardial infarction, pleurisy, pneumonia, pneumothorax, cp pulmonary embolus, stable angina, thoracic aortic disection, unstable angina. Refusal of service: The patient/guardian displays adequate decision making capability and despite a detailed discussion of alternatives, benefits, risks, and consequences refuses: all lab tests, all X-rays. Special discussion: Based on the patient's history, exam, and Dx evaluation, there is no indication for emergent intervention or inpatient Tx. It is understood by the patient/guardian that if the Sx's persist or worsen they need to return immediately for re-evaluation. 05/17 15:50 Order name: EKG; Complete Time: 15:50 cp 05/17 15:50 Order name: EKG - Nurse/Tech; Complete Time: 16:41 cp 05/17 17:13 Order name: Cardiac monitoring; Complete Time: 17:52 cp 05/17 17:13 Order name: IV Saline Lock; Complete Time: 17:52 cp 05/17 17:13 Order name: Labs collected and sent; Complete Time: 17:52 cp 05/17 17:13 Order name: O2 Per Protocol; Complete Time: 17:52 cp 05/17 17:13 Order name: O2 Sat Monitoring; Complete Time: 17:52 cp EC:04 Rate is 88 beats/min. Rhythm is regular. MI interval is prolonged at 234 msec. QRS cp interval is normal. QT interval is normal. Interpreted by me. Reviewed by me. Administered Medications: 17:53 Not Given (Patient Refused): [id number] mg IVP once me1 17:54 Not Given (Patient Refused): DuoNeb Nebulize (2.5 mg - 0.5 mg) 3 ml Nebulizer once me1 Disposition Summary: 05/17/24 17:47 Discharge Ordered Notes: Location: Home cp Problem: chronic cp Symptoms: are unchanged cp Condition: Stable cp Diagnosis - Chest pain, unspecified cp - Shortness of breath cp - Acute pharyngitis, unspecified cp Followup: cp - With: Private Physician - When: 1 - 2 days - Reason: Recheck today's complaints Discharge Instructions: - Discharge Summary Sheet cp - Nonspecific Chest Pain, Adult cp - Shortness of Breath, Adult cp - Sore Throat cp Forms: - Medication Reconciliation Form cp - Antibiotic Education cp - Prescription Opioid Use cp - Patient Portal Instructions cp - Leadership Thank You Letter cp Addendum: 05/18/2024 23:53 Co-signature as Attending Physician, Leyda Capellan MD I reviewed the patient's care s d2 provided by the Advanced Practice Provider and agree with the diagnosis and treatment plan. Signatures: Dispatcher [employer] EDMS Justus Neil PA PA cp Dunlop, Stephanie, MD MD sd2 Anika Simons RN RN cm10 Shira Solomon RN me1 Corrections: (The following items were deleted from the chart) 05/17 17:14 17:14 BASIC METABOLIC PANEL+C.LAB.BRZ ordered. EDMS EDMS 17:14 17:14 CBC+H.LAB.BRZ ordered. EDMS EDMS 17:14 17:14 MAGNESIUM+C.LAB.BRZ ordered. EDMS EDMS 17:14 17:14 Troponin High Sensitivity+C.LAB.BRZ ordered. EDMS EDMS 17:14 17:14 Group A Streptococcus Rapid Sc+BA.LAB.BRZ ordered. EDMS EDMS
[2024-05-17 18:08] VITALS: TEMP 98.3
[2024-05-17 18:10] VITALS: BP 165/96; O2SAT 93
--- NOTE | 2024-05-18 13:38 | EKG ---
Test Date: 2024-05-17 Test Time: 08:28:03 Landing Man: SEAMUS MEASUREMENT RESULTS: Intervals: Rate: 73 ND: QRSD: 86 QT: 456 QTc: 502 Beulah: P: ND: QRS: 11 T: 24 INTERPRETIVE STATEMENTS: Atrial fibrillation with premature ventricular or aberrantly conducted complexes Prolonged QT Abnormal ECG Compared to ECG 05/11/2024 13:06:16 Ventricular premature complex(es) now present Sinus rhythm no longer present T-wave abnormality no longer present Electronically Signed On 05-18-24 13:36:29 CLERICAL AIDE TEACHER by Mike Lund
--- NOTE | 2024-05-21 11:21 | EKG ---
Test Date: 2024-05-17 Test Time: 15:58:08 Body Worker: JENELLE MEASUREMENT RESULTS: Intervals: Rate: 88 IA: 234 QRSD: 84 QT: 418 QTc: 505 Conway: P: 70 IA: 234 QRS: 6 T: 76 INTERPRETIVE STATEMENTS: Sinus rhythm with 1st degree AV block with premature atrial complexes Left ventricular hypertrophy with repolarization abnormality Prolonged QT Abnormal ECG Electronically Signed On 05-21-24 11:14:52 BAG SEALER by Tommy Da Silva
== END 2024-05-17 18:02 | disposition home or self-care (01) ==
LOC: ER 15:44
DX: R07.89 Other chest pain (principal); R06.02 Shortness of breath; J02.9 Acute pharyngitis, unspecified; I48.91 Unspecified atrial fibrillation; Z21 Asymptomatic human immunodeficiency virus [HIV] infection status
CPT/HCPCS: 93005; 99284

== ENCOUNTER 2024-05-18 03:12 | Emergency (ER) | payer OTHER ==
[2024-05-18] MEDS ORDERED: ALBUTEROL 2.5 MG/3 ML NEB SOL ONE (03:40)
[2024-05-18] MEDS ORDERED: IPRATROPIUM BROM 0.5MG/2.5ML ONE (03:40)
[2024-05-18] MEDS ORDERED: predniSONE 20 MG TAB ONE (03:41)
[2024-05-18] MEDS ORDERED: DIAZEPAM 5 MG TABLET ONE (03:41)
[2024-05-18] MEDS ORDERED: AZITHROMYCIN 250 MG TAB ONE (04:17)
[2024-05-18] MEDS ORDERED: GUAIFENESIN/DM 5 ML UCUP ONE (04:18)
[2024-05-18] MEDS ORDERED: ONDANSETRON 4 MG (ODT) TAB ONE (04:18)
[2024-05-18] MEDS ORDERED: cloNIDine HCL 0.1 MG TAB ONE (04:54)
--- NOTE | 2024-05-18 06:12 | ER ---
Nurse's Notes [facility] Name: Marjan Kolb Age: 69 yrs Sex: Female : 1955 Arrival Date: 05/18/2024 Time: 03:12 Bed 2 Private MD: Diagnosis: COPD/ Chronic obstructive pulmonary disease with (acute) exacerbation;Tobacco use disorder, acute pharyngitis, persistent cough Presentation: 05/18 03:15 Chief complaint: EMS states: shortness of breath. ay 03:15 Coronavirus screen: Client denies travel out of the [place] in the last 14 days. Ebola ay Screen: No symptoms or risks identified at this time. Initial Sepsis Screen: Does the patient meet any 2 criteria? No. Patient's initial sepsis screen is negative. Does the patient have a suspected source of infection? No. Patient's initial sepsis screen is negative. Risk Assessment: Do you want to hurt yourself or someone else? Patient reports no desire to harm self or others. Note Pt BIBA with c/o SOB and cough. 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 Onset of symptoms is unknown. 03:15 Method Of Arrival: EMS: [facility] ay 03:15 Acuity: BLAYNE 2 ay Triage Assessment: 03:15 General: See nursing assessment. Respiratory: Reports shortness of breath cough that is ay productive, Airway is patent Respiratory effort is even, labored, Respiratory pattern is tachypnea Breath sounds with crackles Breath sounds are diminished bilaterally. Onset: The symptoms/episode began/occurred today, the patient has mild shortness of breath. Historical: - Allergies: 04:32 ACETAMINOPHEN; ay 04:32 adhesive tape; ay 04:32 Azithromycin; ay 04:32 butorphanol tartrate; ay 04:32 Fentanyl; ay 04:32 HYDROCODONE; ay 04:32 metoclopramide HCl; ay 04:32 Trimethoprim-Sulfamethoxazole; ay - PMHx: 04:32 a-fib; angina pectoris; HIV positive; Migraine; NSTEMI; ay - PSHx: 04:32 Cholecystectomy; coronary stents; shoulder replacement (NSTE); ay - Immunization history:: Adult Immunizations up to date. - Infectious Disease History:: Denies. - Family history:: not pertinent. - Social history:: Smoking status: Patient denies any tobacco usage or history of. Screenin:32 [facility] ED Fall Risk Assessment (Adult) History of falling in the last 3 months, ay including since admission No falls in past 3 months (0 pts) Confusion or Disorientation No (0 pts) Intoxicated or Sedated No (0 pts) Impaired Gait No (0 pts) Mobility Assist Device Used No (0 pt) Altered Elimination No (0 pt) Score/Fall Risk Level 0 - 2 = Low Risk Oriented to surroundings, Maintained a safe environment, Educated pt \T\ family on fall prevention, incl call for assistance when getting out of bed. Abuse screen: Denies threats or abuse. Denies injuries from another. Nutritional screening: No deficits noted. Tuberculosis screening: No symptoms or risk factors identified. Assessment: 04:26 General: Appears distressed, uncomfortable, Behavior is cooperative, restless. Pain: ay Complains of pain in chest Pain currently is 9 out of 10 on a pain scale. Neuro: Level of Consciousness is awake, alert, obeys commands, Oriented to person, place, time, situation, Speech is normal. Cardiovascular: Heart tones S1 S2 Capillary refill < 3 seconds. Respiratory: Airway is patent Respiratory effort is even, labored, Respiratory pattern is tachypnea Breath sounds with crackles bilaterally. Breath sounds are diminished bilaterally. GI: Abdomen is obese, Bowel sounds present X 4 quads. : No signs and/or symptoms were reported regarding the genitourinary system. EENT: No signs and/or symptoms were reported regarding the EENT system. Derm: Skin with poor turgor Bruising that is dark purple. Musculoskeletal: weakness. 04:26 Cardiovascular: Rhythm is regular. ay Vital Signs: 04:44 BP 195 / 116; Pulse 82; Resp 19; Pulse Ox 94% on NC; FiO2 3 %; ay 06:30 BP 188 / 105; Pulse 89; Resp 20; Pulse Ox 96% ; ay Crystal Coma Score: 04:32 Eye Response: spontaneous(4). Motor Response: obeys commands(6). Verbal Response: ay oriented(5). Total: 15. 21:07 Eye Response: spontaneous(4). Motor Response: obeys commands(6). Verbal Response: sp4 oriented(5). Total: 15. ED Course: 03:13 Patient arrived in ED. cp4 03:15 Arm band placed on right wrist. ay 03:18 Potepalov, Dion, MD is Attending Physician. sp4 03:37 Santino Reyes, ASHLEY is Primary Nurse. ay 04:32 Patient has correct armband on for positive identification. Placed in gown. Bed in low ay position. Call light in reach. Side rails up X2. Provided Education on: plan of care. latcher on. Pulse ox on. NIBP on. 04:32 Warm blanket given. Pillow given. ay 04:32 No provider procedures requiring assistance completed. Patient did not have IV access ay during this emergency room visit. Oxygen administration via nasal cannula \T\ 3L/min. 06:08 Moody Sosa MD is Referral Physician. sp4 06:40 Triage completed. ay Administered Medications: 03:53 Drug: Albuterol Inhalation 2.5 mg Inhalation once Route: Inhalation; ay 03:53 Drug: Ipratropium Inhalation Aerosol 0.5 mg Inhalation once Route: Inhalation; ay 05:01 Follow up: Response: No adverse reaction ay 03:54 Drug: Diazepam PO 5 mg PO once Route: PO; ay 05:01 Follow up: Response: No adverse reaction ay 03:54 Drug: predniSONE PO 60 mg PO once Route: PO; ay 05:01 Follow up: Response: No adverse reaction ay 04:10 Drug: Dextromethorphan-Guaifenesin PO Liquid 10 mg-100 mg/5 mL 20 ml PO once Route: PO; ay 05:00 Follow up: Response: No adverse reaction ay 04:10 Drug: Ondansetron PO 4 mg PO once Route: PO; ay 05:00 Follow up: Response: No adverse reaction ay 04:10 Drug: AZITHromycin PO 500 mg PO once Route: PO; ay 05:00 Follow up: Response: No adverse reaction ay 04:55 Drug: cloNIDine PO 0.2 mg PO once Route: PO; ay 05:02 Follow up: Response: No adverse reaction ay Medication: 04:32 VIS not applicable for this client. ay Outcome: 04:26 Discharged to home ambulatory, ay 04:26 Condition: stable 04:26 Discharge instructions given to patient, Instructed on discharge instructions, follow up and referral plans. medication usage, Demonstrated understanding of instructions, follow-up care, medications, Prescriptions given X 2, 06:11 Discharge ordered by . sp4 06:43 Patient left the ED. ay Signatures: Dion Randhawa MD MD sp4 Isabel Neri cp4 Santino Reyes, RN RN georgi
--- NOTE | 2024-05-18 06:12 | EDPHYS ---
Physician Documentation [facility] Name: Marjan Kolb Age: 69 yrs Sex: Female : 1955 Arrival Date: 05/18/2024 Time: 03:12 Bed 2 Private MD: ED Physician Dion Randhawa HPI: 05/18 06:08 This 69 yrs old Female presents to ER via Unassigned with complaints of sp4 Shortness Of Breath. 06:08 Patient presents with EMS for reported worsening shortness of breath.. sp4 Historical: - Allergies: 04:32 ACETAMINOPHEN; ay 04:32 adhesive tape; ay 04:32 Azithromycin; ay 04:32 butorphanol tartrate; ay 04:32 Fentanyl; ay 04:32 HYDROCODONE; ay 04:32 metoclopramide HCl; ay 04:32 Trimethoprim-Sulfamethoxazole; ay - PMHx: 04:32 a-fib; angina pectoris; HIV positive; Migraine; NSTEMI; ay - PSHx: 04:32 Cholecystectomy; coronary stents; shoulder replacement (NSTE); ay - Immunization history:: Adult Immunizations up to date. - Infectious Disease History:: Denies. - Family history:: not pertinent. - Social history:: Smoking status: Patient denies any tobacco usage or history of. ROS: 21:07 Constitutional: Negative for fever, chills, and weight loss, positive shortness of sp4 breath 21:07 All other systems are negative, Exam: 21:07 Constitutional: Patient is physically debilitated female appears dyspneic. sp4 Hypertensive on arrival Head/Face: Normocephalic, atraumatic. Eyes: Pupils equal round and reactive to light, extra-ocular motions intact. Lids and lashes normal. Conjunctiva and sclera are not injected. Cornea within normal limits. Periorbital areas with no swelling, redness, or edema. ENT: Nares patent. No nasal discharge, no septal abnormalities noted. Tympanic membranes are normal and external auditory canals are clear. Oropharynx with no redness, swelling, or masses, exudates, or evidence of obstruction, uvula midline. Mucous membranes moist. Neck: Trachea midline, no thyromegaly or masses palpated, and no cervical lymphadenopathy. Supple, full range of motion without nuchal rigidity, or vertebral point tenderness. Chest/axilla: Normal chest wall appearance and motion. Nontender with no deformity. No lesions are appreciated. Cardiovascular: Regular rate and rhythm with a normal S1 and S2. No gallops, murmurs, or rubs. Normal PMI, no JVD. No pulse deficits. Respiratory: Lungs have equal breath sounds bilaterally, positive bilateral expiratory wheezes in all lung patel. Stigmata of COPD Abdomen/GI: Soft, with normal bowel sounds. No distension or tympany. No guarding or rebound. No evidence of tenderness throughout. Back: No spinal tenderness. No costovertebral tenderness. Skin: Warm, dry with normal turgor. Normal color with no rashes, no lesions, and no evidence of cellulitis. MS/ Extremity: Pulses equal, no cyanosis. Neurovascular intact. Full, normal range of motion. Neuro: Awake and alert, GCS 15, oriented to person, place, time, and situation. Cranial nerves II-XII grossly intact. Motor strength 5/5 in all extremities. Sensory grossly intact. Psych: Awake, alert, with orientation to person, place and time. Behavior, mood, and affect are within normal limits Vital Signs: 04:44 BP 195 / 116; Pulse 82; Resp 19; Pulse Ox 94% on NC; FiO2 3 %; ay 06:30 BP 188 / 105; Pulse 89; Resp 20; Pulse Ox 96% ; ay Deeth Coma Score: 04:32 Eye Response: spontaneous(4). Motor Response: obeys commands(6). Verbal Response: ay oriented(5). Total: 15. 21:07 Eye Response: spontaneous(4). Motor Response: obeys commands(6). Verbal Response: sp4 oriented(5). Total: 15. MDM: 03:19 Medical Screening Exam initiated sp4 21:09 Differential diagnosis: Anxiety Reaction asthma, Bronchitis CHF exacerbation, Chronic sp4 Obstructive Pulmonary Disease. Data reviewed: vital signs, nurses notes, EMS record, old medical records. ED course: Patient Has improved significantly after management in ER. Stable for discharge home. Administered Medications: 03:53 Drug: Albuterol Inhalation 2.5 mg Inhalation once Route: Inhalation; ay 03:53 Drug: Ipratropium Inhalation Aerosol 0.5 mg Inhalation once Route: Inhalation; ay 05:01 Follow up: Response: No adverse reaction ay 03:54 Drug: Diazepam PO 5 mg PO once Route: PO; ay 05:01 Follow up: Response: No adverse reaction ay 03:54 Drug: predniSONE PO 60 mg PO once Route: PO; ay 05:01 Follow up: Response: No adverse reaction ay 04:10 Drug: Dextromethorphan-Guaifenesin PO Liquid 10 mg-100 mg/5 mL 20 ml PO once Route: PO; ay 05:00 Follow up: Response: No adverse reaction ay 04:10 Drug: Ondansetron PO 4 mg PO once Route: PO; ay 05:00 Follow up: Response: No adverse reaction ay 04:10 Drug: AZITHromycin PO 500 mg PO once Route: PO; ay 05:00 Follow up: Response: No adverse reaction ay 04:55 Drug: cloNIDine PO 0.2 mg PO once Route: PO; ay 05:02 Follow up: Response: No adverse reaction ay Disposition Summary: 05/18/24 06:11 Discharge Ordered Notes: Location: Home sp4 Problem: new sp4 Symptoms: have improved sp4 Condition: Stable sp4 Diagnosis - COPD/ Chronic obstructive pulmonary disease with (acute) exacerbation sp4 - Tobacco use disorder, acute pharyngitis, persistent cough sp4 Followup: sp4 - With: Moody Sosa MD - When: 7 - 10 days - Reason: Recheck today's complaints Discharge Instructions: - Discharge Summary Sheet sp4 - Chronic Obstructive Pulmonary Disease Exacerbation sp4 Forms: - Patient Portal Instructions sp4 Prescriptions: - dextromethorphan-guaifenesin 20-400 mg Oral tablet - take 1 tablet ORAL route every 6 hours PRN cough; 40 tablet; Refills: 0, sp4 Product Selection Permitted - Cephalexin 500 mg Oral Capsule - take 1 capsule ORAL route every 12 hours for 10 days; 20 capsule; Refills: 0, sp4 Product Selection Permitted Signatures: Christine Coley RN RN lg3 Dion Randhawa MD MD sp4 Santino Reyes RN RN ay
[2024-05-18 06:53] VITALS: BP 188/105; O2SAT 96
== END 2024-05-18 06:43 | disposition home or self-care (01) ==
LOC: ER 03:12
DX: J44.1 Chronic obstructive pulmonary disease with (acute) exacerbation (principal); R05.3 Chronic cough; J02.9 Acute pharyngitis, unspecified; Z72.0 Tobacco use; I48.91 Unspecified atrial fibrillation; Z21 Asymptomatic human immunodeficiency virus [HIV] infection status; I25.2 Old myocardial infarction
CPT/HCPCS: 99285; J7512; Q0162; J7613; J7644

== ENCOUNTER 2024-06-14 08:32 | Emergency (ER) | payer OTHER ==
--- NOTE | 2024-06-14 09:23 | RAD REPORT ---
Exam:Ankle Left 3 View HISTORY: left ankle pain FINDINGS: No acute fracture or dislocation is seen Old distal left fibular fracture. Prominent soft tissue swelling. Mild osteoarthritis involves the ankle.
--- NOTE | 2024-06-14 09:57 | RAD REPORT ---
EXAM:Extremity Venous Uni Ltd HISTORY: Left leg pain TECHNIQUE: Sonographic evaluation left lower extremity performed.Grayscale, color and spectral analys is performed on all vessels COMPARISON: 2022. FINDINGS: Left common femoral, superficial femoral, greater saphenous, popliteal and posterior tibial veins are compressible and demonstrate augmentation. Doppler demonstrates good flow. IMPRESSION: No evidence of deep venous thrombosis involving the left lower extremity.
--- NOTE | 2024-06-14 10:07 | EDPHYS ---
Physician Documentation [facility] Name: Marjan Kolb Age: 69 yrs Sex: Female : 1955 Arrival Date: 06/14/2024 Time: 08:32 Bed 5 Private MD: ED Physician Howard Samaniego HPI: 06/14 09:51 This 69 yrs old Female presents to ER via Wheelchair with complaints of Left foot rt swelling. 09:51 Patient presents to the ED with pain, swelling to the left ankle first noticed when she rt woke up this morning. Noticed the symptoms yesterday. Denies other acute complaints at this time, symptoms are moderate severity, no other aggravating alleviating factors.. Historical: - Allergies: 08:48 ACETAMINOPHEN; ap3 08:48 adhesive tape; ap3 08:48 Azithromycin; ap3 08:48 Fentanyl; ap3 08:48 HYDROCODONE; ap3 08:48 butorphanol tartrate; ap3 08:48 metoclopramide HCl; ap3 08:48 Trimethoprim-Sulfamethoxazole; ap3 - PMHx: 08:48 a-fib; angina pectoris; HIV positive; Migraine; NSTEMI; ap3 - PSHx: 08:48 Cholecystectomy; coronary stents; shoulder replacement (NSTE); ap3 - Immunization history:: Client reports receiving the 2nd dose of the Covid vaccine. - Infectious Disease History:: Denies. - Social history:: Smoking status: unknown. - Family history:: not pertinent. ROS: 09:51 Constitutional: Negative for fever, chills, and weight loss, Cardiovascular: Negative rt for chest pain, palpitations, and edema, Respiratory: Negative for shortness of breath, cough, wheezing, and pleuritic chest pain, Abdomen/GI: Negative for abdominal pain, nausea, vomiting, diarrhea, and constipation, Skin: Negative for injury, rash, and discoloration, Neuro: Negative for headache, weakness, numbness, tingling, and seizure, 09:51 MS/extremity: Positive for pain, swelling, 09:51 Skin: Positive for Exam: 09:51 Constitutional: This is a well developed, well nourished patient who is awake, alert, rt and in no acute distress. Head/Face: Normocephalic, atraumatic. Skin: Warm, dry with normal turgor. Normal color with no rashes, no lesions, and no evidence of cellulitis. Neuro: Awake and alert, GCS 15, oriented to person, place, time, and situation. Cranial nerves II-XII grossly intact. Motor strength 5/5 in all extremities. Sensory grossly intact. Cerebellar exam normal. Normal gait. 09:51 Musculoskeletal/extremity: Mild swelling overlying the lateral malleolus, no skin changes. Pulses, motor, sensation intact, no tenderness, swelling to the calf. Vital Signs: 08:45 BP 181 / 101; Pulse 89; Resp 18; Temp 98.4; Pulse Ox 97% on R/A; Weight 79.38 kg; ph Height 5 ft. 4 in. ; Pain 9/10; 10:45 BP 167 / 97; Pulse 84; Resp 18; Temp 97.6; Pulse Ox 97% on R/A; ph 08:45 Body Mass Index 30.04 (79.38 kg, 162.56 cm) ph 08:45 Pain Scale: Adult ph MDM: 09:04 Medical Screening Exam initiated rt 15:41 Differential Diagnosis DVT, contusion, fracture. Data reviewed: vital signs, nurses rt notes, radiologic studies. Independent interpretation of the following test(s) in the Emergency Department X-Ray: My interpretation is No fracture seen on interpretation of x-ray images. Care significantly affected by the following chronic conditions: A-fib. Counseling: I had a detailed discussion with the patient and/or guardian regarding the historical points, exam findings, and any diagnostic results supporting the discharge/admit diagnosis, radiology results, the need for outpatient follow up. Response to treatment: There is no appreciated change of the patient's symptoms at this time. 06/14 09:06 Order name: Ankle Left 3 View XRAY; Complete Time: 09:59 rt 06/14 09:06 Order name: Extremity Venous Uni Ltd US; Complete Time: 09:59 rt Administered Medications: No medications were administered Disposition Summary: 06/14/24 10:06 Discharge Ordered Notes: Location: Home rt Problem: new rt Symptoms: have improved rt Condition: Stable rt Diagnosis - Left ankle pain rt Followup: rt - With: Private Physician - When: 2 - 3 days - Reason: Discharge Instructions: - Discharge Summary Sheet rt - Ankle Pain rt Forms: - Medication Reconciliation Form rt - Antibiotic Education rt - Prescription Opioid Use rt - Patient Portal Instructions rt - Leadership Thank You Letter rt Prescriptions: - Lisinopril 10 mg Oral tablet - take 1 tablet ORAL route once daily; 30 tablet; Refills: 0, Product Selection rt Permitted Signatures: Dispatcher [employer] Danielle Delgadillo, RN RN ap3 Howard Samaniego MD MD rt
--- NOTE | 2024-06-14 10:07 | ER ---
Nurse's Notes [facility] Name: Marjan Kolb Age: 69 yrs Sex: Female : 1955 Arrival Date: 06/14/2024 Time: 08:32 Bed 5 Private MD: Diagnosis: Left ankle pain Presentation: 06/14 08:45 Chief complaint: Patient states: she woke up this morning with left outer ankle ap3 swelling and pain. patient states she did not notice it yesterday. patient currently rates her pain as a 9/10 on the pain scale. Coronavirus screen: At this time, the client does not indicate any symptoms associated with coronavirus-19. Ebola Screen: No symptoms or risks identified at this time. Initial Sepsis Screen: Does the patient meet any 2 criteria? No. Patient's initial sepsis screen is negative. Does the patient have a suspected source of infection? No. Patient's initial sepsis screen is negative. Risk Assessment: Do you want to hurt yourself or someone else? Patient reports no desire to harm self or others. Onset of symptoms is unknown. 08:45 Method Of Arrival: Wheelchair ap3 08:45 Acuity: BLAYNE 3 ap3 Triage Assessment: 08:48 General: Appears in no apparent distress. Behavior is calm, cooperative, appropriate ap3 for age. Pain: Complains of pain in left medial malleolus Pain currently is 9 out of 10 on a pain scale. Neuro: Level of Consciousness is awake, alert, obeys commands, Oriented to person, place, time, situation. Cardiovascular: Patient's skin is warm and dry. Respiratory: Airway is patent Respiratory effort is even, unlabored, Respiratory pattern is regular, symmetrical. Musculoskeletal: Reports pain in left medial malleolus. Historical: - Allergies: 08:48 ACETAMINOPHEN; ap3 08:48 adhesive tape; ap3 08:48 Azithromycin; ap3 08:48 Fentanyl; ap3 08:48 HYDROCODONE; ap3 08:48 butorphanol tartrate; ap3 08:48 metoclopramide HCl; ap3 08:48 Trimethoprim-Sulfamethoxazole; ap3 - PMHx: 08:48 a-fib; angina pectoris; HIV positive; Migraine; NSTEMI; ap3 - PSHx: 08:48 Cholecystectomy; coronary stents; shoulder replacement (NSTE); ap3 - Immunization history:: Client reports receiving the 2nd dose of the Covid vaccine. - Infectious Disease History:: Denies. - Social history:: Smoking status: unknown. - Family history:: not pertinent. Screenin:50 Abuse screen: Denies threats or abuse. Nutritional screening: No deficits noted. ap3 Tuberculosis screening: No symptoms or risk factors identified. 09:30 [facility] ED Fall Risk Assessment (Adult) History of falling in the last 3 months, ph including since admission Yes- fall prone (multiple falls) (3 pts) Confusion or Disorientation No (0 pts) Intoxicated or Sedated No (0 pts) Impaired Gait No (0 pts) Mobility Assist Device Used No (0 pt) Altered Elimination No (0 pt) Score/Fall Risk Level 3 or more points = High Risk Oriented to surroundings, Maintained a safe environment, Used ambulatory aids as needed (educated on \T\ assisted with). Assessment: 10:00 General: Appears in no apparent distress. comfortable, Behavior is calm, cooperative, ph appropriate for age. Pain: Complains of pain in left medial malleolus. Neuro: Level of Consciousness is awake, alert, obeys commands, Oriented to person, place, time, situation. Cardiovascular: Capillary refill < 3 seconds in bilateral fingers Patient's skin is warm and dry. Respiratory: Airway is patent Respiratory effort is even, unlabored, Respiratory pattern is regular, symmetrical. Derm: Skin is pink, warm \T\ dry. Musculoskeletal: Circulation, motion, and sensation intact. Range of motion: intact in all extremities, Swelling present in left medial malleolus. Vital Signs: 08:45 BP 181 / 101; Pulse 89; Resp 18; Temp 98.4; Pulse Ox 97% on R/A; Weight 79.38 kg; ph Height 5 ft. 4 in. ; Pain 9/10; 10:45 BP 167 / 97; Pulse 84; Resp 18; Temp 97.6; Pulse Ox 97% on R/A; ph 08:45 Body Mass Index 30.04 (79.38 kg, 162.56 cm) ph 08:45 Pain Scale: Adult ED Course: 08:36 Patient arrived in ED. ra3 08:47 Triage completed. ap3 08:50 Arm band placed on right wrist. ap3 09:02 Howard Samaniego MD is Attending Physician. rt 09:21 Ankle Left 3 View XRAY In Process Unspecified. EDMS 09:30 Patient has correct armband on for positive identification. Bed in low position. Call ph light in reach. Pulse ox on. NIBP on. Door closed. Noise minimized. Warm blanket given. Pillow given. 09:37 Extremity Venous Uni Ltd US In Process Unspecified. EDMS 10:43 Solange Bennett, RN is Primary Nurse. ph 10:45 No provider procedures requiring assistance completed. Patient did not have IV access ph during this emergency room visit. Administered Medications: No medications were administered Medication: 10:45 VIS not applicable for this client. ph Outcome: 10:06 Discharge ordered by MD. rt 10:46 Discharged to home via wheelchair, ph 10:46 Condition: good 10:46 Discharge instructions given to patient, Instructed on discharge instructions, follow up and referral plans. medication usage, Demonstrated understanding of instructions, follow-up care, medications, Prescriptions given X 1, 10:46 Patient left the ED. ph Signatures: Dispatcher [employer] EDMT Solange Bennett, RN RN ph Danielle Arango RN RN ap3 Howard Samaniego MD MD rt Arleen Chan ra3 Corrections: (The following items were deleted from the chart) 08:51 08:45 BP 181 / ???; Pulse 101bpm; Resp 18bpm; Pulse Ox 97% RA; Temp 98.4F; 79.38 kg; ph Height 5 ft. 4 in.; BMI: 30.0; Pain 9/10, Adult; ap3
[2024-06-14 10:55] VITALS: O2SAT 97
[2024-06-14 10:56] VITALS: BP 167/97; TEMP 97.6
== END 2024-06-14 10:46 | disposition home or self-care (01) ==
LOC: ER 08:32
DX: M25.572 Pain in left ankle and joints of left foot (principal)
CPT/HCPCS: 93971; 99283

== ENCOUNTER 2024-06-15 17:58 | Inpatient (IN) | payer OTHER ==
[2024-06-15 18:38] LABS: Absolute Lymphocytes (CBC) 0.7 K/uL (0.7-4.9); Absolute Monocytes 0.5 K/uL (0.1-1.3); Absolute Neutrophil 5.4 K/uL (1.8-8.0); Basophils % 0.2 % (0-1.3); Eosinophils % 0.6 % (0-4.4); Hematocrit 27.3 % (36.0-45.0); Hemoglobin 8.8 g/dL (12.0-15.0); Lymphocytes % 10.2 % (15.3-44.8); MCH 25.4 pg (27.0-35.0); MCHC 32.2 g/dL (32.0-36.0); MCV 78.7 fL (80-100); MPV 7.8 fL (7.6-11.3); Monocytes % 7.3 % (3.3-12.3); Neutrophils % 81.7 % (41.7-73.7); Platelets 161 thou/uL (152-406); RBC Red Blood Cell Count 3.47 M/uL (3.86-4.86); Red Cell Distribution Width 17.4 % (12.1-15.2)
--- NOTE | 2024-06-15 18:47 | RAD REPORT ---
EXAMINATION: CT ABDOMEN AND PELVIS WITHOUT CONTRAST CLINICAL INDICATION: Abdominal pain TECHNIQUE: CT abdomen and pelvis was performed, as per department protocol. IV contrast and oral was not administered.Axial, sagittal and coronal reconstructions were obtained. One or more of the following dose reduction techniques were used: Automated exposure control, adjustment of the mA and/o r kV according to the patient size, and/or iterative reconstruction. Unless otherwise specified, incidental findings do not require dedicated imaging follow-up. [id number]. COMPARISON: December 2023 FINDINGS: The lack of intravenous and oral contrast limits evaluation of solid organs, vessels and bowel. Small pleural effusions. Cardiomegaly. The liver, spleen, pancreas, and adrenals appear grossly normal. Bilateral renal cysts. Tiny bilateral renal calculi. No hydronephrosis. Mild to moderate rotation multiple loops of jejunum and proximal ileum. Small amount of ascites. No evidence of diverticulitis IMPRESSION: Mild to moderate dilatation of jejunum and proximal probably an obstruction
[2024-06-15 18:53] LABS: AST/SGOT 12 U/L (15-37); Albumin 3.1 g/dL (3.4-5.0); Albumin/Globulin Ratio 0.8 (1.1-1.8); Alkaline Phosphatase 70 U/L (45-117); Anion Gap 7.7 mEq/L (5.0-15.0); BUN Blood Urea Nitrogen 17 mg/dL (7-18); Bicarbonate 24 mEq/L (21-32); Bilirubin Total 0.8 mg/dL (0.2-1.0); Globulin 3.8 g/dL (2.3-3.5); Glomerular Filtration Rate 68 ml/min (=/>90); Glucose Level 112 mg/dL (74-106); Lipase 24 U/L (13-75); Potassium 3.7 mEq/L (3.5-5.1); Protein, Total 6.9 g/dL (6.4-8.2); Sodium Level 140 mEq/L (136-145)
[2024-06-15 18:55] LABS: ALT/SGPT < 14 U/L (13-56)
[2024-06-15] MEDS ORDERED: MORPHINE 4 MG/ML SYR ONE (19:06)
[2024-06-15] MEDS ORDERED: NA CHLORIDE 0.9% 1,000 ML ONE ×2 (19:06→22:49)
[2024-06-15] MEDS ORDERED: ONDANSETRON 4 MG/2 ML VIAL ONE (19:06)
--- NOTE | 2024-06-15 20:28 | ER ---
Nurse's Notes [facility] Name: Marjan Kolb Age: 69 yrs Sex: Female : 1955 Arrival Date: 06/15/2024 Time: 17:58 Bed 16 Private MD: Diagnosis: Bowel obstruction Presentation: 06/15 18:01 Chief complaint: EMS states: Pt reports N/V and lower abdominal pain since this jb4 morning. Coronavirus screen: At this time, the client does not indicate any symptoms associated with coronavirus-19. Ebola Screen: No symptoms or risks identified at this time. Risk Assessment: Do you want to hurt yourself or someone else? Patient reports no desire to harm self or others. Onset of symptoms was June 15, 2024. Transition of care: patient was not received from another setting of care. 18:01 Method Of Arrival: EMS: [facility] jb4 18:01 Acuity: BLAYNE 3 jb4 18:04 Initial Sepsis Screen: Does the patient meet any 2 criteria? No. Patient's initial jb4 sepsis screen is negative. Does the patient have a suspected source of infection? No. Patient's initial sepsis screen is negative. Historical: - Allergies: 18:02 ACETAMINOPHEN; jb4 18:02 adhesive tape; jb4 18:02 Azithromycin; jb4 18:02 butorphanol tartrate; jb4 18:02 Fentanyl; jb4 18:02 HYDROCODONE; jb4 18:02 metoclopramide HCl; jb4 18:02 Trimethoprim-Sulfamethoxazole; jb4 - PMHx: 18:02 a-fib; angina pectoris; HIV positive; Migraine; NSTEMI; jb4 - PSHx: 18:02 coronary stents; shoulder replacement (NSTE); Cholecystectomy; jb4 - Immunization history:: Adult Immunizations up to date. - Infectious Disease History:: Denies. - Social history:: Smoking status: Patient denies any tobacco usage or history of. Screenin:21 [facility] ED Fall Risk Assessment (Adult) History of falling in the last 3 months, jb4 including since admission No falls in past 3 months (0 pts) Confusion or Disorientation No (0 pts) Intoxicated or Sedated No (0 pts) Impaired Gait No (0 pts) Mobility Assist Device Used No (0 pt) Altered Elimination No (0 pt) Score/Fall Risk Level 0 - 2 = Low Risk Oriented to surroundings, Maintained a safe environment. Abuse screen: Denies threats or abuse. Nutritional screening: No deficits noted. Tuberculosis screening: No symptoms or risk factors identified. Assessment: 18:00 General: Appears in no apparent distress. uncomfortable, Behavior is calm, cooperative, jb4 appropriate for age. Pain: Complains of pain in right lower quadrant and left lower quadrant Pain does not radiate. Pain currently is 10 out of 10 on a pain scale. Neuro: Level of Consciousness is awake, alert, obeys commands, Oriented to person, place, time, situation. Cardiovascular: Patient's skin is warm and dry. Respiratory: Airway is patent Respiratory effort is even, unlabored, Respiratory pattern is regular, symmetrical. GI: Abdomen is round distended, Reports lower abdominal pain, nausea, vomiting. Derm: Skin is intact, Skin is pink, warm \T\ dry. Musculoskeletal: Circulation, motion, and sensation intact. Range of motion: intact in all extremities. 19:20 Reassessment: Patient appears in no apparent distress at this time. Patient and/or jb4 family updated on plan of care and expected duration. Pain level reassessed. Patient is alert, oriented x 3, equal unlabored respirations, skin warm/dry/pink. 20:30 Reassessment: Patient appears in no apparent distress at this time. Patient and/or jb4 family updated on plan of care and expected duration. Pain level reassessed. Patient is alert, oriented x 3, equal unlabored respirations, skin warm/dry/pink. 21:30 Reassessment: Patient appears in no apparent distress at this time. Patient and/or jb4 family updated on plan of care and expected duration. Pain level reassessed. Patient is alert, oriented x 3, equal unlabored respirations, skin warm/dry/pink. Patient states feeling better. 22:22 Reassessment: Patient appears in no apparent distress at this time. Patient and/or jb4 family updated on plan of care and expected duration. Pain level reassessed. Patient is alert, oriented x 3, equal unlabored respirations, skin warm/dry/pink. Vital Signs: 18:04 BP 173 / 120; Pulse 87; Resp 20; Temp 99.1(O); Pulse Ox 86% ; Weight 79.38 kg; Height 5 jb4 ft. 4 in. ; 19:20 BP 175 / 104; Pulse 79; Resp 16; Pulse Ox 96% on 2 lpm NC; jb4 20:15 BP 141 / 83; Pulse 63; Resp 16; Pulse Ox 98% on 2 lpm NC; jb4 21:15 BP 165 / 78; Pulse 74; Resp 16; Pulse Ox 100% on 2 lpm NC; jb4 22:15 BP 154 / 100; Pulse 81; Resp 16; Pulse Ox 97% on 2 lpm NC; jb4 18:04 Body Mass Index 30.04 (79.38 kg, 162.56 cm) jb4 ED Course: 18:01 Patient arrived in ED. jb4 18:02 Triage completed. jb4 18:02 Rosemary Cespedes FNP-C is [facility]. kb 18:02 Sam Mack MD is Attending Physician. kb 18:02 Arm band placed on right wrist. jb4 18:29 CBC with Diff Sent. jb4 18:29 CMP Sent. jb4 18:35 CT Abd/Pelvis - Without Contrast In Process Unspecified. EDMS 19:21 Patient has correct armband on for positive identification. Bed in low position. Call jb4 light in reach. Side rails up X 1. Provided Education on: plan of care. 19:36 Mode Bhatt, ASHLEY is Primary Nurse. jb4 20:28 Moody Sosa MD is Hospitalizing Provider. kb 06/16 05:02 No provider procedures requiring assistance completed. Patient admitted, IV remains in cp4 place. 05:04 Inserted saline lock: 24 gauge in right hand, using aseptic technique. cp4 Administered Medications: 06/15 19:00 Drug: Ondansetron IVP 4 mg IVP once; over 2 minutes Route: IVP; Site: right hand; jb4 20:00 Follow up: Response: No adverse reaction; Marked relief of symptoms jb4 19:00 Drug: morphine IVP or IV 4 mg IVP once over 4 mins Route: IVP; Infused Over: 4 mins; jb4 Site: right hand; 20:00 Follow up: Response: No adverse reaction; Marked relief of symptoms jb4 19:19 Drug: NS 0.9% IV 1000 ml IV at 1 bolus Per protocol; to be given as a bolus over 60 jb4 minutes Route: IV; Rate: 1 bolus; Site: right hand; 23:00 Follow up: Response: No adverse reaction; IV Status: Completed infusion; IV Intake: jb4 1000ml Medication: 06/16 05:02 VIS not applicable for this client. cp4 Intake: 06/15 23:00 IV: 1000ml; Total: 1000ml. jb4 Outcome: 20:28 Decision to Hospitalize by Provider. kb 06/16 05:02 Admitted to ER Hold. Please see [facility] for further documentation. cp4 Condition: stable Instructed on the need for admit, 12:43 Patient left the ED. ha1 Signatures: Dispatcher [employer] EDLA Rosemary Cespedes, BUTTONHOLE MAKER-C BUTTONHOLE MAKER-Mode Burns RN RN jb4 Ludivina Ramires RN RN 1 Isabel Neri cp4 Corrections: (The following items were deleted from the chart) 05:05 05:02 Inserted saline lock: 24 gauge in right hand, using aseptic technique. Blood cp4 collected. Flushed with 10 mL NS cp4
--- NOTE | 2024-06-15 20:28 | EDPHYS ---
Physician Documentation [facility] Name: Marjan Kolb Age: 69 yrs Sex: Female : 1955 Arrival Date: 06/15/2024 Time: 17:58 Bed 16 Private MD: ED Physician Sam Mack HPI: 06/15 20:39 This 69 yrs old Female presents to ER via EMS with complaints of Abd Pain > 50 y/o. kb 20:39 Pt is a 69 year old female who presents for lower abd pain, nausea and vomiting that kb started this morning. Denies fever, diarrhea. . Historical: - Allergies: 18:02 ACETAMINOPHEN; jb4 18:02 adhesive tape; jb4 18:02 Azithromycin; jb4 18:02 butorphanol tartrate; jb4 18:02 Fentanyl; jb4 18:02 HYDROCODONE; jb4 18:02 metoclopramide HCl; jb4 18:02 Trimethoprim-Sulfamethoxazole; jb4 - PMHx: 18:02 a-fib; angina pectoris; HIV positive; Migraine; NSTEMI; jb4 - PSHx: 18:02 coronary stents; shoulder replacement (NSTE); Cholecystectomy; jb4 - Immunization history:: Adult Immunizations up to date. - Infectious Disease History:: Denies. - Social history:: Smoking status: Patient denies any tobacco usage or history of. ROS: 20:39 Constitutional: As per HPI kb Exam: 20:39 Constitutional: This is a well developed, well nourished patient who is awake, alert, kb and in no acute distress. Head/Face: Normocephalic, atraumatic. ENT: Moist Mucous membranes Cardiovascular: Regular rate Respiratory: Respirations even and unlabored. No increased work of breathing. Talking in full sentences Skin: Warm, dry with normal turgor. Normal color. MS/ Extremity: Pulses equal, no cyanosis. Neurovascular intact. Full, normal range of motion. Neuro: Awake and alert, GCS 15, oriented to person, place, time, and situation. 20:39 Abdomen/GI: Inspection: abdomen appears normal, Palpation: soft, in all quadrants, mild abdominal tenderness, in the right lower quadrant and left lower quadrant, Vital Signs: 18:04 BP 173 / 120; Pulse 87; Resp 20; Temp 99.1(O); Pulse Ox 86% ; Weight 79.38 kg; Height 5 jb4 ft. 4 in. ; 19:20 BP 175 / 104; Pulse 79; Resp 16; Pulse Ox 96% on 2 lpm NC; jb4 20:15 BP 141 / 83; Pulse 63; Resp 16; Pulse Ox 98% on 2 lpm NC; jb4 21:15 BP 165 / 78; Pulse 74; Resp 16; Pulse Ox 100% on 2 lpm NC; jb4 22:15 BP 154 / 100; Pulse 81; Resp 16; Pulse Ox 97% on 2 lpm NC; jb4 18:04 Body Mass Index 30.04 (79.38 kg, 162.56 cm) jb4 MDM: 18:02 Medical Screening Exam initiated kb 20:40 Differential diagnosis: bowel obstruction, diverticulitis, non-specific abd pain. Data kb reviewed: vital signs, nurses notes. Consideration of Admission/Observation Patient was admitted/placed on observation. Escalation of care including admission/observation considered. Management of patient was discussed with the following: Hospitalist: Dr Sosa accepts pt for admission. Registered Radiographer: Dr Simons accepts pt for consult. Wants NPO and NG tube if pt begins to vomit. Historians other than the Patient: EMS: [facility]. Counseling: I had a detailed discussion with the patient and/or guardian regarding the historical points, exam findings, and any diagnostic results supporting the discharge/admit diagnosis, lab results, radiology results, the need for further work-up and treatment in the hospital. 06/15 18:02 Order name: CBC with Diff; Complete Time: 18:46 kb 06/15 18:02 Order name: CMP; Complete Time: 19:00 kb 06/15 18:02 Order name: Lipase; Complete Time: 19:00 kb 06/15 18:02 Order name: Urinalysis w/ reflexes kb 06/15 21:38 Order name: CBC with Automated Diff EDMS 06/15 21:38 Order name: CBC with Automated Diff; Complete Time: 06:58 EDMS 06/15 21:38 Order name: Comprehensive Metabolic Panel EDMS 06/15 21:38 Order name: Comprehensive Metabolic Panel; Complete Time: 06:58 EDMS 06/15 21:38 Order name: Ferritin; Complete Time: 06:58 EDMS 06/15 21:38 Order name: Transferrin Sat/Iron Binding; Complete Time: 06:58 [facility] 06/15 18:02 Order name: CT Abd/Pelvis - Without Contrast; Complete Time: 18:51 kb 06/15 18:02 Order name: IV Saline Lock; Complete Time: 18:29 kb 06/15 18:02 Order name: Labs collected and sent; Complete Time: 18:29 kb Administered Medications: 19:00 Drug: Ondansetron IVP 4 mg IVP once; over 2 minutes Route: IVP; Site: right hand; jb4 20:00 Follow up: Response: No adverse reaction; Marked relief of symptoms jb4 19:00 Drug: morphine IVP or IV 4 mg IVP once over 4 mins Route: IVP; Infused Over: 4 mins; jb4 Site: right hand; 20:00 Follow up: Response: No adverse reaction; Marked relief of symptoms jb4 19:19 Drug: NS 0.9% IV 1000 ml IV at 1 bolus Per protocol; to be given as a bolus over 60 jb4 minutes Route: IV; Rate: 1 bolus; Site: right hand; 23:00 Follow up: Response: No adverse reaction; IV Status: Completed infusion; IV Intake: jb4 1000ml Disposition Summary: 06/15/24 20:28 Hospitalization Ordered Notes: Hospitalization Status: Inpatient Admission kb Provider: Moody Sosa Condition: Stable kb Problem: new kb Symptoms: are unchanged kb Bed/Room Type: Standard Location: Telemetry/MedSurg (Inpatient)(06/16/24 11:42) ty Room Assignment: [facility](06/16/24 11:42) ty Diagnosis - Bowel obstruction kb Forms: - Medication Reconciliation Form kb - SBAR form kb - Leadership Thank You Letter kb Signatures: Dispatcher [employer] [facility] Rosemary Cespedes, PUPPY TRAINER-C PUPPY TRAINER-Mode Burns RN RN jb4 Ludivina Ramires RN RN ha1 Howard Samaniego MD MD rt Андрей Herrera Corrections: (The following items were deleted from the chart) 18:03 18:03 Abdomen Pelvis Wo Con+CT.RAD.BRZ ordered. [facility] 06/16 00:10 06/15 20:28 Telemetry/MedSurg (observation) kb [facility] 06/16 00:10 06/15 20:28 kb ha1 06/16 11:42 00:10 [facility] ER HOLD ha1 ty 11:42 00:10 ERHOLD- ha1 ty
[2024-06-15] MEDS ORDERED: ONDANSETRON 4 MG/2 ML VIAL IV PRN (21:35)
[2024-06-15] MEDS ORDERED: HYDRALAZINE HCL 20 MG/ML VIAL IV PRN (21:36)
--- NOTE | 2024-06-15 21:40 | P.HP ---
Certification for Inpatient With expected LOS: >2 Midnights Practitioner: I am a practitioner with admitting privileges, knowledge of patient current condition, hospital course, and medical plan of care. Services: Services provided to patient in accordance with Admission requirements found in Title 42 Section 412.3 of the Code of Federal Regulations Patient History Date of Service: 06/15/24 Reason for admission: Abdominal pain nausea vomiting bowel obstruction History of Present Illness: Patient is 69 years of age for the past 2 days she has been complaining of nausea vomiting abdominal pain admitted with subacute bowel obstruction is a previous hernia surgery no other abdominal complaint no prior history of any abdominal symptoms Allergies fentanyl Allergy (Severe, Verified 07/20/22 08:30) Hives adhesive tape Allergy (Verified 07/20/22 08:30) Rash butorphanol tartrate [From Stadol] Allergy (Verified 07/20/22 08:30) confusion metoclopramide HCl [From Reglan] Allergy (Verified 07/20/22 08:30) Shortness of breath sulfamethoxazole [From Bactrim] Allergy (Verified 07/20/22 08:30) Hives/Rash trimethoprim [From Bactrim] Allergy (Verified 07/20/22 08:30) Hives/Rash acetaminophen [From Hunters] Adverse Reaction (Verified 01/15/24 03:19) Nausea/Vomiting hydrocodone [From Hunters] Adverse Reaction (Verified 01/15/24 03:19) Nausea/Vomiting Bactrim DS Allergy (Intermediate, Uncoded 07/20/22 08:30) Nausea/Vomiting Home Medications: Omeprazole 40 mg PO DAILY 08/10/23 Sertraline [Zoloft*] 100 mg PO DAILY 08/10/23 Trazodone [Desyrel*] 50 mg PO BEDTIME 08/10/23 Vericiguat [Verquvo] 20 mg PO DAILY 08/10/23 Albuterol Inhaler [Ventolin Inhaler*] 2 puff IH Q6H PRN 30 Days #1 inh 08/11/23 Amlodipine [Norvasc*] 10 mg PO DAILY 30 Days #30 tab 08/11/23 Buspirone HCl 30 mg PO BID 08/11/23 Hydralazine [Apresoline*] 50 mg PO TID PRN 30 Days #30 tab 08/11/23 Mometasone/Formoterol [Dulera 200 Mcg/5 Mcg Inhaler] 2 puff IH BID 30 Days #1 inhaler 08/11/23 Spironolactone [Aldactone*] 25 mg PO BID 30 Days #60 tab 08/11/23 Valsartan [Diovan*] 160 mg PO DAILY tab 08/11/23 Acidophilus/Bulgaricus [Lactinex Packet] 1 each PO DAILY 5 Days #5 packet 10/15/23 Simethicone 125 mg PO TID PRN #30 cap 01/07/24 Aspirin Chewable [Aspirin Chewable*] 81 mg PO DAILY #30 tab.chew 01/12/24 Atorvastatin Calcium [Lipitor] 40 mg PO BEDTIME #30 tab 01/12/24 Ticagrelor [Brilinta*] 90 mg PO BID #60 tab 01/12/24 Aspirin Chewable [Aspirin Chewable*] 81 mg PO DAILY tab.chew 01/16/24 Furosemide [Lasix*] 40 mg PO DAILY #30 tab 01/16/24 Metoprolol Tartrate [Lopressor*] 100 mg PO BID #60 tab 01/16/24 clonazePAM [Clonazepam] 0.5 mg PO TIDP PRN 01/29/24 Ipratropium/Albuterol Sulfate [Iprat-Albut 0.5-3(2.5) mg/3 ml] 3 ml IH TID PRN #90 amp 01/30/24 Isosorbide Mononitrate [Isosorbide Mononitrate ER] 30 mg PO DAILY #30 tab 01/30/24 Nebulizer [Mc 300 Nebulizer W-Mouthpiece] 1 each MC TID PRN #1 ea 01/30/24 Amox/Clavulanate [Augmentin 875-125 Tab] 875 mg PO BID 5 Days #10 tab 02/01/24 predniSONE [Deltasone*] 10 mg PO BID 7 Days #14 tab 02/01/24 - Past Medical/Surgical History Diabetic: No -: HIV- viral load currently undectable -: CAD -: Bipolar disorder -: Hypertension -: COPD on home O2 @ 2L -: Tobacco abuse -: former Alcohol abuse -: Anemia of chronic disease -: Hyperlipidemia -: GERD with hiatal hernia -: Atrial fibrillation-paroxysmal S/P Watchman procedure -: Chronic diastolic CHF -: Appendectomy Watchman procedure, -: Cholecystectomy -: left and right shoulder rotator cuff repair -: Right foot repair -: Right shoulder replacement -: right wrist -: hiatal hernia repair february 2021 -: right wrist Psychosocial/ Personal History: She lives at home. She is . Family coming to visit from [place] tomorrow - Family History Father -: Heart disease, Hypertension, Lung disease, GI disease, Stroke, Cancer, Liver disease, Kidney disease Notes: Colon cancer Mother -: Hypertension, Lung disease, GI disease, Blood disorders, Other (see notes) Notes: Epilepsy, chronic pain, leukemia - Social History Alcohol use: No CD- Drugs: No Caffeine use: No Review of Systems 10-point ROS is otherwise unremarkable Physical Examination - Vital Signs Temperature: 99.1 F Blood Pressure: 173/120 Pulse: 87 Respirations: 14 Pulse Ox (%): 99 - Physical Exam General: Alert, In no apparent distress, Oriented x3 HEENT: Atraumatic Neck: Supple Respiratory: Clear to auscultation bilaterally Cardiovascular: No edema, Regular rate/rhythm, Normal S1 S2 Gastrointestinal: Soft and benign, No rebound, No guarding, Tenderness (Minimal generalized tenderness) - Studies Laboratory Data (last 24 hrs) 06/15/24 06/15/24 18:27 18:27 WBC 6.60 Hgb 8.8 L Hct 27.3 L Plt Count 161 Sodium 140 Potassium 3.7 BUN 17 Creatinine 0.92 Glucose 112 H Total Bilirubin 0.8 AST 12 L ALT < 14 Alkaline Phosphatase 70 Lipase 24 Assessment and Plan - Problems (Diagnosis) (1) Subacute intestinal obstruction Current Visit: Yes Status: Acute Plan: Patient is 69 years of age admitted with subacute proximal bowel obstruction no prior history of bowel obstruction has had hernia surgery before apart from COPD hypertension no other significant medical problems of blood pressure is elevated has been complaining of nausea vomiting will admit IV fluids antibiotics Dr. Simons consulted CT scan of the abdomen reviewed (2) Microcytic anemia Current Visit: Yes Status: Acute Plan: Patient has microcytic anemia denies any history of GI bleeding have ordered iron studies will also need a GI workup - Advance Directives Does patient have a Living Will: No Does patient have a Durable POA for Healthcare: No
[2024-06-15] MEDS ORDERED: NA CHLORIDE 0.9% 50 ML ONE (22:49)
[2024-06-15] MEDS ORDERED: CEFTRIAXONE 1000 MG/VIAL ONE (22:49)
[2024-06-15] MEDS ORDERED: MORPHINE 2 MG/ML SYR ONE (22:49)
[2024-06-15] MEDS: NA CHLORIDE 0.9% 1,000 ML IV SCH (22:53)
[2024-06-15] MEDS: MORPHINE 2 MG/ML SYR IV PRN (22:54)
[2024-06-15] MEDS: CEFTRIAXONE 1,000 MG in NA CHLORIDE 0.9% 50 ML IVPB SCH (22:54)
[2024-06-16] MEDS ORDERED: BENZONATATE 100 MG CAP PO ONE (02:07)
[2024-06-16] MEDS: BENZONATATE 100 MG CAP PO PRN (02:09)
[2024-06-16] MEDS ORDERED: MORPHINE 2 MG/ML SYR ONE ×2 (04:21→08:26)
[2024-06-16 04:39] LABS: Absolute Lymphocytes (CBC) 0.7 K/uL (0.7-4.9); Absolute Monocytes 0.5 K/uL (0.1-1.3); Absolute Neutrophil 4.7 K/uL (1.8-8.0); Basophils % 0.2 % (0-1.3); Eosinophils % 0.7 % (0-4.4); Hematocrit 26.6 % (36.0-45.0); Hemoglobin 8.2 g/dL (12.0-15.0); Lymphocytes % 11.9 % (15.3-44.8); MCH 24.8 pg (27.0-35.0); MCHC 30.9 g/dL (32.0-36.0); MCV 80.1 fL (80-100); MPV 7.5 fL (7.6-11.3); Monocytes % 8.5 % (3.3-12.3); Neutrophils % 78.7 % (41.7-73.7); Platelets 123 thou/uL (152-406); RBC Red Blood Cell Count 3.32 M/uL (3.86-4.86); Red Cell Distribution Width 17.7 % (12.1-15.2)
[2024-06-16 04:52] LABS: AST/SGOT 13 U/L (15-37); Albumin/Globulin Ratio 0.9 (1.1-1.8); Alkaline Phosphatase 65 U/L (45-117); Anion Gap 4.7 mEq/L (5.0-15.0); BUN Blood Urea Nitrogen 19 mg/dL (7-18); Bicarbonate 25 mEq/L (21-32); Bilirubin Total 0.6 mg/dL (0.2-1.0); Globulin 3.5 g/dL (2.3-3.5); Glomerular Filtration Rate 70 ml/min (=/>90); Glucose Level 100 mg/dL (74-106); Potassium 3.7 mEq/L (3.5-5.1); Protein, Total 6.5 g/dL (6.4-8.2); Sodium Level 142 mEq/L (136-145)
[2024-06-16 04:54] LABS: ALT/SGPT < 14 U/L (13-56)
[2024-06-16 04:58] LABS: Ferritin 23.3 ng/mL (8-252)
[2024-06-16] MEDS: FLU (Fluarix Triv) TS24-25(6MOS UP)/PF 45 MCG/0.5 ML Syringe IM ONE (08:15)
[2024-06-16] MEDS: PNEUMOCOCCAL VACCINE 0.5 ML IMVAC ONE (09:00)
[2024-06-16] MEDS ORDERED: NA CHLORIDE 0.9% 1,000 ML ONE (11:27)
--- NOTE | 2024-06-16 14:26 | CON ---
Date of Consultation: 06/16/2024 Diagnosis: Small bowel obstruction. History Of Present Illness: This is a case of a 69-year-old patient, multiple medical problems, mult iple surgeries, complaining of nausea, and vomiting, and abdominal distention for about 2 days. She is not new to surgery. She has two hiatal hernias repaired many years ago, but since then she has no t had any problem. She does not recall the last colonoscopy, although she was advised to do so. She does not remember eating anything out of the usual. Denies any family member sick at home. Denies any trauma. Denies any melena. Review of Systems: Ten points otherwise unremarkable. Allergies: FENTANYL, , REGLAN, BACTRIM, NORCO. Medications: Reviewed. Prednisone, omeprazole, Zoloft, Desyrel, Norvasc, Apresoline, Aldactone, Lee van, , aspirin, Lipitor, Brilinta, Lasix, Lopressor, clonazepam, albuterol, isosorbide, neb ulizers. Past Medical History: Includes HIV, CAD, bipolar disorder, hypertension, COPD, anemia, hyperlipidemi a, GERD, and congestive heart failure. Past Surgical History: Includes appendectomy; Watchman procedure; cholecystectomy; rotator cuff, lef t and right; right foot surgery; shoulder surgery; rib surgery; hiatal hernia repair twice, last one 2020; and wrist surgery. Family History: Noncontributory. Social History: She does not smoke. She does not drink alcohol. Review of Systems: Nausea, vomiting, abdominal pain. Once again, 10 points otherwise unremarkable. Physical Examination: Vital Signs: Reviewed. General: The patient is awake, alert. No distress. Oriented x3. HEENT: Pupils are equal and reactive. Anicteric. Neck: Supple. Chest: Clear. Abdomen: Soft and depressible. No guarding or rebound. Mild generalized tenderness. No peritoniti s. Breasts: Deferred. Pelvic: Deferred. Rectal: Deferred. Extremities: Good capillary refill. Laboratory Data: Blood work shows a WBC count of 6 with potassium 3.7, creatinine is 0.9. CAT scan of the abdomen and pelvis interpreted by Dr. Plata as mild to moderate dilatation of the jejunum a nd proximal jejunum, cannot rule out obstruction. Assessment: 69-year-old patient with abdominal pain, distention, and a CAT scan that cannot rule out obstruction. The patient will be admitted for observation. No peritonitis at this moment. White c ount is normal. We are going to continue serial abdominal examinations, bowel rest. If she vomit, w e will put an NG tube. She does not want an NG tube, at this moment. Ambulation is encouraged. She was advised once again the importance after this is over to go back to [facility] for he r colonoscopy and upper endoscopy as scheduled. VANESSA/KIRTI Voice ID: [id number] Report ID: [id number]
--- NOTE | 2024-06-16 16:45 | P.PN ---
Subjective Date of Service: 06/16/24 Chief Complaint: Abdominal pain nausea vomiting bowel obstruction Patient reports intermittent abdominal pain. She states she has been passing gas. Last bowel movement was yesterday in the morning. Patient is made n.p.o. according to nursing report patient wheeled herself to get a bottle of coke to drink stating she wanted something ice cold in her mouth. N.p.o. status reemphasized. Physical Examination - Vital Signs Temperature: 97.8 F Blood Pressure: 144/80 Pulse: 85 Respirations: 12 Pulse Ox (%): 100 - Studies Laboratory Data (last 24 hrs) 06/15/24 06/15/24 18:27 18:27 WBC 6.60 Hgb 8.8 L Hct 27.3 L Plt Count 161 Sodium 140 Potassium 3.7 BUN 17 Creatinine 0.92 Glucose 112 H Total Bilirubin 0.8 AST 12 L ALT < 14 Alkaline Phosphatase 70 Lipase 24 Assessment And Plan - Plan Physical examination General: Alert and oriented x3, NAD, HEENT: Conjunctiva not pale, anicteric sclera Neck: Supple, no elevated JVD Heart: Heart sounds 1 and 2 normal, regular rhythm, normal rate, no pedal edema Lungs: Clear to auscultation bilaterally, adequate breath sounds bilaterally, no rhonchi or crackles. Abdomen: Soft, nondistended, nontender, hyperactive bowel sounds. Extremities: No tenderness, no deformity Skin: Normal skin turgor, no rash, no nodules or ulcers. Neuro: No focal motor deficit. Normal speech. Psychiatry: Normal mood, no agitation. Diagnosis Small bowel obstruction COPD Hypertension Chronic respiratory failure secondary to COPD-on home 02 History of atrial fibrillation S/P watchman procedure Hx of CAD S/P stent. Hx of HIV, hepatitis, HLD Anemia Thrombocytopenia Plan: Small bowel obstruction Likely partial bowel obstruction Patient has flatus. General surgery Dr. Rodriguez's input appreciated. Continue medical management with serial abdominal examination. No surgical intervention for now. Keep n.p.o. Consider small bowel series tomorrow. Analgesics as needed. IV hydration. COPD Chronic respiratory failure with hypoxia Stable Continue home bronchodilators Patient is maintained on her baseline home oxygen. History of atrial fibrillation S/P watchman procedure Hx of CAD S/P stent. Continue home medications. History of HIV History of hepatitis Continue home medications. Chronic anemia Thrombocytopenia Monitor CBC. Transfuse as needed for hemoglobin less than 7. DVT prophylaxis: SCD Advanced directive: Full code.
[2024-06-16] MEDS: EMTRICITABINE PO SCH (16:58)
[2024-06-16] MEDS: TENOFOV ALAFENAM PO SCH (16:58)
[2024-06-16] MEDS: TRAZODONE 50 MG TABLET PO SCH (21:00)
[2024-06-16] MEDS: BUSPIRONE HCL 15 MG TABLET PO SCH (21:00)
[2024-06-16] MEDS: clonazePAM 0.5 MG TAB PO SCH (21:00)
[2024-06-16] MEDS: predniSONE 10 MG TAB PO SCH (21:00)
[2024-06-16] MEDS: SERTRALINE HCL 100 MG TAB PO SCH (21:00)
[2024-06-16] MEDS: HYDRALAZINE HCL 25 MG TABLET PO SCH (21:00)
[2024-06-16] MEDS: METOPROLOL TAR 50 MG TAB PO SCH (21:00)
[2024-06-16] MEDS: RALTEGRAVIR POTASSIUM 400 MG TABLET PO SCH (21:00)
[2024-06-16] MEDS: LORazepam 2 MG/ML VIAL IV ONE (21:18)
[2024-06-17] MEDS: ISOSORBIDE MONO SR 30 MG TAB PO SCH (08:09)
[2024-06-17] MEDS: VALSARTAN 160 MG TAB PO SCH (08:10)
[2024-06-17] MEDS: RALTEGRAVIR POTASSIUM 400 MG PO SCH (09:00)
[2024-06-17] MEDS: VERICIGUAT PO SCH (09:00)
[2024-06-17 09:51] LABS: Absolute Lymphocytes (CBC) 0.4 K/uL (0.7-4.9); Absolute Monocytes 0.5 K/uL (0.1-1.3); Absolute Neutrophil 4.5 K/uL (1.8-8.0); Basophils % 0.3 % (0-1.3); Eosinophils % 0.7 % (0-4.4); Hematocrit 24.6 % (36.0-45.0); Hemoglobin 7.7 g/dL (12.0-15.0); Lymphocytes % 7.6 % (15.3-44.8); MCH 24.9 pg (27.0-35.0); MCHC 31.3 g/dL (32.0-36.0); MCV 79.7 fL (80-100); Monocytes % 8.4 % (3.3-12.3); Nucleated Red Blood Cells % 0.2 % (0-0); Platelets 128 thou/uL (152-406); RBC Red Blood Cell Count 3.09 M/uL (3.86-4.86); Red Cell Distribution Width 17.7 % (12.1-15.2)
[2024-06-17 10:03] LABS: Anion Gap 6.7 mEq/L (5.0-15.0); Potassium 3.7 mEq/L (3.5-5.1)
--- NOTE | 2024-06-17 16:59 | P.PN ---
Subjective Date of Service: 06/17/24 Chief Complaint: Abdominal pain nausea vomiting bowel obstruction Patient denies any abdominal pain. She states she has been passing gas. Patient wanted to sign out AMA if we do not resume her diet. Physical Examination - Vital Signs Temperature: 98.1 F Blood Pressure: 161/81 Pulse: 71 Respirations: 15 Pulse Ox (%): 96 Assessment And Plan - Plan Physical examination General: Alert and oriented x3, NAD, HEENT: Conjunctiva not pale, anicteric sclera Neck: Supple, no elevated JVD Heart: Heart sounds 1 and 2 normal, regular rhythm, normal rate, no pedal edema Lungs: Clear to auscultation bilaterally, adequate breath sounds bilaterally, no rhonchi or crackles. Abdomen: Soft, nondistended, nontender, hyperactive bowel sounds. Extremities: No tenderness, no deformity Skin: Normal skin turgor, no rash, no nodules or ulcers. Neuro: No focal motor deficit. Normal speech. Psychiatry: Normal mood, no agitation. Diagnosis Small bowel obstruction COPD Hypertension Chronic respiratory failure secondary to COPD-on home 02 History of atrial fibrillation S/P watchman procedure Hx of CAD S/P stent. Hx of HIV, hepatitis, HLD Anemia Thrombocytopenia Plan: Small bowel obstruction Patient states she has been passing flatus since admission. She is asymptomatic. General surgery Dr. Simons is following. Clear liquid diet start today per Dr. Simons. Patient has tolerated without any symptoms. Continue medical management with serial abdominal examination. Analgesics as needed. IV hydration. Possible discharge in a.m. COPD Chronic respiratory failure with hypoxia Stable Continue home bronchodilators Patient is maintained on her baseline home oxygen. History of atrial fibrillation S/P watchman procedure Hx of CAD S/P stent. Continue home medications. History of HIV History of hepatitis Continue home medications. Chronic anemia Thrombocytopenia Monitor CBC. Transfuse as needed for hemoglobin less than 7. DVT prophylaxis: SCD Advanced directive: Full code.
--- NOTE | 2024-06-17 17:53 | RAD REPORT ---
EXAM: AP view(s) of the abdomen Abdomen 1 View (KUB) HISTORY: Follow up small bowel obstruction COMPARISON: CT 06/15/2024 FINDINGS: Dilated small bowel is again noted centrally. This measures up to 4 cm. This is probably little ravi ge compared with the CT from 06/15/2024 when comparing across modalities. Colonic gas is noted.. No suspicious calcifications are seen. Cholecystectomy clips in the right upper quadrant. No acute osseous abnormality. Other: Cardiomegaly IMPRESSION: Similar small bowel dilatation compared with 06/15/2024 likely reflecting at least a parti al small bowel obstruction. Gas continues to be seen within the colon.
[2024-06-17] MEDS: DULERA 200/5 (MOMETASONE/FORMOTEROL) INHALER IH PRN (21:05)
--- NOTE | 2024-06-18 10:26 | P.DS ---
Admission Date: 06/15/24 Discharge Date: 06/18/24 Disposition: ROUTINE DISCHARGE Discharge Condition: FAIR Reason for Admission: Abdominal pain nausea vomiting bowel obstruction Brief History of Present Illness: 69 years of age with a history of HIV on antiretrovirals, COPD on home oxygen presented to the emergency department with a 2-day history of nausea and vomiting and abdominal pain. patient denied any fever. CT abdomen and pelvis done in the emergency department suggested partial small bowel obstruction. Patient has a previous history of hernia surgery. Patient was hospitalized for further management. Hospital Course: Patient admitted to the medical floor and the following medical problems addressed: Diagnosis Small bowel obstruction COPD Hypertension Chronic respiratory failure secondary to COPD-on home 02 History of atrial fibrillation S/P watchman procedure Hx of CAD S/P stent. Hx of HIV, hepatitis, HLD Anemia Thrombocytopenia Plan: Small bowel obstruction Patient reported passing gas since admission. She is asymptomatic and denied any abdominal pain General surgery Dr. Simons evaluated patient and recommended medical management and diet advancement as tolerated. Patient tolerated full liquid diet without any issue. She reported having a bowel movement today. She was briefly hydrated with IV fluid COPD Chronic respiratory failure with hypoxia Stable Continue home bronchodilators Patient is maintained on her baseline home oxygen. History of atrial fibrillation S/P watchman procedure Hx of CAD S/P stent. Continued home medications. History of HIV History of hepatitis Continued home medications. Chronic anemia Thrombocytopenia Stable Vital Signs/Physical Exam: Temp Pulse Resp BP Pulse Ox 98.5 F 87 20 188/82 H 96 06/18/24 08:00 06/18/24 08:00 06/18/24 09:23 06/18/24 08:00 06/18/24 09:23 General: Alert, In no apparent distress, Oriented x3 HEENT: Mucous membr. moist/pink Neck: JVD not distended Respiratory: Clear to auscultation bilaterally, Normal air movement Cardiovascular: No edema, Normal S1 S2, Irregular heart rate/rhythm Gastrointestinal: Soft and benign, No tenderness Musculoskeletal: No swelling Integumentary: No cyanosis Neurological: Normal strength at 5/5 x4 extr Laboratory Data at Discharge: WBC 5.40 thou/uL (4.3-10.9) 06/17/24 09:36 Hgb 7.7 g/dL (12.0-15.0) L 06/17/24 09:36 Hct 24.6 % (36.0-45.0) L 06/17/24 09:36 Plt Count 128 thou/uL (152-406) L 06/17/24 09:36 Sodium 140 mEq/L (136-145) 06/17/24 09:36 Potassium 3.7 mEq/L (3.5-5.1) 06/17/24 09:36 BUN 20 mg/dL (7-18) H 06/17/24 09:36 Creatinine 0.84 mg/dL (0.55-1.02) 06/17/24 09:36 Glucose 88 mg/dL (74-106) 06/17/24 09:36 Total Bilirubin 0.6 mg/dL (0.2-1.0) 06/16/24 04:15 AST 13 U/L (15-37) L 06/16/24 04:15 ALT < 14 U/L (13-56) 06/16/24 04:15 Alkaline Phosphatase 65 U/L (45-117) 06/16/24 04:15 Lipase 24 U/L (13-75) 06/15/24 18:27 Home Medications: Omeprazole 40 mg PO DAILY 08/10/23 Sertraline [Zoloft*] 100 mg PO BID 08/10/23 Trazodone [Desyrel*] 50 mg PO BEDTIME 08/10/23 Vericiguat [Verquvo] 20 mg PO DAILY 08/10/23 Albuterol Inhaler [Ventolin Inhaler*] 2 puff IH Q6H PRN 30 Days #1 inh 08/11/23 Buspirone HCl 30 mg PO BID 08/11/23 Valsartan [Diovan*] 160 mg PO DAILY tab 08/11/23 Aspirin Chewable [Aspirin Chewable*] 81 mg PO DAILY tab.chew 01/16/24 Metoprolol Tartrate [Lopressor*] 100 mg PO BID #60 tab 01/16/24 clonazePAM [Clonazepam] 0.5 mg PO BID 01/29/24 Ipratropium/Albuterol Sulfate [Iprat-Albut 0.5-3(2.5) mg/3 ml] 3 ml IH TID PRN #90 amp 01/30/24 Isosorbide Mononitrate [Isosorbide Mononitrate ER] 30 mg PO DAILY #30 tab 01/30/24 Nebulizer [Mc 300 Nebulizer W-Mouthpiece] 1 each MC TID PRN #1 ea 01/30/24 predniSONE [Deltasone*] 10 mg PO BID 7 Days #14 tab 02/01/24 Amlodipine [Norvasc*] 10 mg PO DAILY PRN 06/16/24 Emtricitabine/Tenofov Alafenam [Descovy 200-25 mg Tablet] 1 each PO DAILY 06/16/24 Furosemide [Lasix*] 40 mg PO EVERY 3RD DAY 06/16/24 Hydralazine [Apresoline*] 50 mg PO TID 06/16/24 Mometasone/Formoterol [Dulera 200 Mcg/5 Mcg Inhaler] 2 puff IH BID PRN 06/16/24 Raltegravir Potassium [Isentress] 400 mg PO BID 06/16/24 Simethicone 125 mg PO BEDTIME PRN PRN 06/16/24 Spironolactone [Aldactone*] 25 mg PO DAILY 06/16/24 Amox/Clavulanate [Augmentin 875-125 Tab] 1 each PO BID #14 tab 06/18/24 New Medications: Amox/Clavulanate [Augmentin 875-125 Tab] 1 each PO BID #14 tab Diet: AHA Activity: Fall precautions Followup: Lele Rahman DO, DO [Primary Care Provider] - 1-2 Weeks Time spent managing pt's care (in minutes): 36
--- NOTE | 2024-06-18 19:12 | P.PN ---
Subjective Date of Service: 06/18/24 Chief Complaint: Abdominal pain nausea vomiting bowel obstruction Patient denies any abdominal pain. She states she has been passing gas. Patient has been tolerating clear liquid diet. Physical Examination - Vital Signs Temperature: 98.7 F Blood Pressure: 132/82 Pulse: 86 Respirations: 15 Pulse Ox (%): 96 Assessment And Plan - Plan Physical examination General: Alert and oriented x3, NAD, HEENT: Anicteric sclera Heart: Heart sounds 1 and 2 normal, regular rhythm, normal rate, no pedal edema Lungs: Clear to auscultation bilaterally, adequate breath sounds bilaterally, no rhonchi or crackles. Abdomen: Soft, nondistended, nontender, hyperactive bowel sounds. Extremities: No tenderness, no deformity Skin: Normal skin turgor, no rash, no nodules or ulcers. Neuro: No focal motor deficit. Normal speech. Psychiatry: Normal mood, no agitation. Diagnosis Small bowel obstruction COPD Hypertension Chronic respiratory failure secondary to COPD-on home 02 History of atrial fibrillation S/P watchman procedure Hx of CAD S/P stent. Hx of HIV, hepatitis, HLD Anemia Thrombocytopenia Plan: Small bowel obstruction Patient states she has been passing flatus since admission. Stated she had a bowel movement today. She is asymptomatic. General surgery Dr. Simons is following. Clear liquid diet start today per Dr. Simons. Patient started on clear liquid diet and advance to full liquid which she tolerated. Advance diet as tolerated. Continue medical management with serial abdominal examination. Empiric antibiotic Analgesics as needed. IV hydration. COPD Chronic respiratory failure with hypoxia Stable Continue home bronchodilators Patient is maintained on her baseline home oxygen. Apparently patient uses only portable oxygen and requested for oxygen concentrator. Obtain room air oxygen saturation for home oxygen. director of child welfare services assisting with arrangement for home oxygen concentrator. History of atrial fibrillation S/P watchman procedure Hx of CAD S/P stent. Stable Continue home medications. History of HIV History of hepatitis Continue home medications. Chronic anemia Thrombocytopenia Monitor CBC. Transfuse as needed for hemoglobin less than 7. DVT prophylaxis: SCD Advanced directive: Full code.
[2024-06-19 00:42] LABS: Specific Gravity 1.017 (1.005-1.030); Sqamous Epithelial <5 /HPF (None Seen); Urine Bacteria None Seen /HPF (<20); Urine Bilirubin NEGATIVE (Negative); Urine Blood Negative (Negative); Urine Clarity Turbid (Clear); Urine Color Yellow (Yellow); Urine Culture Reflex Order NOT NEEDED; Urine Glucose NEGATIVE (Negative); Urine Granular Casts 0-5 /LPF (None Seen); Urine Ketones NEGATIVE (Negative); Urine Microscopic Reflex YN ORDER UMIC; Urine Mucus Slight /HPF (None Seen); Urine Nitrite NEGATIVE (Negative); Urine Protein 2+ (Negative); Urine RBC None Seen /HPF (None Seen); Urine Urobilinogen Normal (Normal)
--- NOTE | 2024-06-19 11:10 | P.PN ---
Date of Service: 06/19/24 Subjective: still feeling weak, short of breath reports intermittent dark stool in recent past ROS: 10 point ROS as noted above, otherwise negative Physical Exam: GEN: Alert, NAD CV: Regular rate and rhythm, no edema Pulm: Nonlabored respirations on 2L NC, clear bilaterally ABD: soft, mild tenderness, non-distended Problem List: Small bowel obstruction Chronic respiratory failure secondary to COPD (on home 02) Severe iron deficiency anemia Hyperlipidemia Hypertension Hx of atrial fibrillation S/P watchman procedure Hx of CAD S/P stent. Hx of HIV, hepatitis Small bowel obstruction on admission, presents with intractable nausea/vomiting associated with abdominal pain. Patient states she has been passing flatus since admission. Multiple BM since admission. She is asymptomatic. General surgery Dr. Simons is following. soft diet; advance as tolerated. continue empiric rocephin (06/15-) pain control IV fluids dc'd 06/19 Chronic respiratory failure secondary to COPD (on home 02) Continue home bronchodilators Patient is maintained on her baseline home oxygen. Patient reports only using portable oxygen. Does not have oxygen concentrator at home. animal services officer assisting with arrangement for home oxygen concentrator. Check room O2 sats continue oral prednisone Severe iron deficiency anemia iron studies consistent with severe iron deficiency anemia. Iron 24, tsat% 5.6% Start IV iron 250 mg symptomatic recommended f/u with GI - to update EGD/C-scope Hyperlipidemia Hypertension History of atrial fibrillation S/P watchman procedure Hx of CAD S/P stent. Hx of HIV/Hepatitis confirm home meds, restart as appropriate VTE: SCD Code: Full Dispo: Home, ~1 day Pending home o2 setup , IV iron Time Spent Managing Pts Care (In Minutes): 55
[2024-06-19] MEDS: SOD FERRIC GLUC COMPLX/SUCROSE 250 MG in NA CHLORIDE 0.9% 250 ML IV SCH (12:13)
[2024-06-19] MEDS: CODEINE 30MG/APAP 300MG TAB PO PRN (17:56)
[2024-06-20 05:38] LABS: Hematocrit 26.5 % (36.0-45.0); MCH 24.8 pg (27.0-35.0); MCHC 30.3 g/dL (32.0-36.0); MCV 81.7 fL (80-100); MPV 7.4 fL (7.6-11.3); Platelets 177 thou/uL (152-406); RBC Red Blood Cell Count 3.24 M/uL (3.86-4.86); Red Cell Distribution Width 17.8 % (12.1-15.2)
[2024-06-20 06:04] LABS: Magnesium 2.4 mg/dL (1.6-2.4)
--- NOTE | 2024-06-20 09:51 | P.DS ---
Admission Date: 06/15/24 Discharge Date: 06/20/24 Disposition: ROUTINE DISCHARGE Discharge Condition: FAIR Reason for Admission: Abdominal pain nausea vomiting bowel obstruction Brief History of Present Illness: Patient is 69 years of age for the past 2 days she has been complaining of nausea vomiting abdominal pain admitted with subacute bowel obstruction is a previous hernia surgery no other abdominal complaint no prior history of any abdominal symptoms Hospital Course: Problem List: Small bowel obstruction Chronic respiratory failure secondary to COPD (on home 02) Severe iron deficiency anemia Hyperlipidemia Hypertension Hx of atrial fibrillation S/P watchman procedure Hx of CAD S/P stent. Hx of HIV, hepatitis Physician Discharge Instructions: Patient presents with intractable nausea/vomiting associated with abdominal pain secondary to small bowel obstruction. CT abdomen on admission noted mild to moderate dilatation of jejunum and proximal likely obstruction. Patient was evaluated by Dr. Simons, general surgeon, who recommended medical management with bowel rest, IV hydration. Her diet was slowly advanced as pain improved. She reported multiple bowel movements since admission. Patient clinically improved however was still requiring oxygen supplementation. She reported having portable O2 tank but didn't have an oxygen concentrator. Patient approved for oxygen concentrator, to be delivered upon discharge. Patient was feeling better, abdominal pain improved, nausea/vomiting resolved, tolerating diet without issues, and was deemed stable for discharge. Given her recurrent abdominal pain, advised patient to follow up with GI in next 1-2 weeks for further GI/anemia work up and to consider repeat EGD/c-scope to further evaluate. Patient is to complete 1 week or oral augmentin on discharge. She was noted to be slightly more anemic than prior hospitalization - her hgb more consistently in 7-8s compared to 9-10s a few months ago. Iron studies this hospitalization were consistent with severe iron deficiency anemia. (iron 24, tsat% 5.6%). Patient received 2 bags of IV iron (250mg) this hospitalization. Advised patient to resume oral iron supplementation on discharge. Medications: Augmentin twice daily for 1 week pantoprazole 40 mg daily oral iron tablets Follow up: PCP 3-5 days GI 1-2 weeks Please call to schedule / confirm appointments Physical Exam: GEN: Alert, NAD CV: Regular rate and rhythm, no edema Pulm: Nonlabored respirations on 2L NC, clear bilaterally ABD: soft, nontender, non-distended Vital Signs/Physical Exam: Temp Pulse Resp BP Pulse Ox 97.8 F 78 16 190/98 H 93 06/20/24 08:00 06/20/24 08:00 06/20/24 08:00 06/20/24 08:00 06/20/24 08:00 Laboratory Data at Discharge: WBC 4.10 thou/uL (4.3-10.9) L 06/20/24 05:14 Hgb 8.0 g/dL (12.0-15.0) L 06/20/24 05:14 Hct 26.5 % (36.0-45.0) L 06/20/24 05:14 Plt Count 177 thou/uL (152-406) 06/20/24 05:14 Sodium 142 mEq/L (136-145) 06/20/24 05:14 Potassium 4.0 mEq/L (3.5-5.1) 06/20/24 05:14 BUN 22 mg/dL (7-18) H 06/20/24 05:14 Creatinine 1.22 mg/dL (0.55-1.02) H 06/20/24 05:14 Glucose 147 mg/dL (74-106) H 06/20/24 05:14 Magnesium 2.4 mg/dL (1.6-2.4) 06/20/24 05:14 Total Bilirubin 0.6 mg/dL (0.2-1.0) 06/16/24 04:15 AST 13 U/L (15-37) L 06/16/24 04:15 ALT < 14 U/L (13-56) 06/16/24 04:15 Alkaline Phosphatase 65 U/L (45-117) 06/16/24 04:15 Lipase 24 U/L (13-75) 06/15/24 18:27 Home Medications: Sertraline [Zoloft*] 100 mg PO BID 08/10/23 Trazodone [Desyrel*] 50 mg PO BEDTIME 08/10/23 Vericiguat [Verquvo] 20 mg PO DAILY 08/10/23 Albuterol Inhaler [Ventolin Inhaler*] 2 puff IH Q6H PRN 30 Days #1 inh 08/11/23 Buspirone HCl 30 mg PO BID 08/11/23 Valsartan [Diovan*] 160 mg PO DAILY tab 08/11/23 Aspirin Chewable [Aspirin Chewable*] 81 mg PO DAILY tab.chew 01/16/24 Metoprolol Tartrate [Lopressor*] 100 mg PO BID #60 tab 01/16/24 clonazePAM [Clonazepam] 0.5 mg PO BID 01/29/24 Ipratropium/Albuterol Sulfate [Iprat-Albut 0.5-3(2.5) mg/3 ml] 3 ml IH TID PRN #90 amp 01/30/24 Isosorbide Mononitrate [Isosorbide Mononitrate ER] 30 mg PO DAILY #30 tab 01/30/24 Nebulizer [Mc 300 Nebulizer W-Mouthpiece] 1 each MC TID PRN #1 ea 01/30/24 predniSONE [Deltasone*] 10 mg PO BID 7 Days #14 tab 02/01/24 Amlodipine [Norvasc*] 10 mg PO DAILY PRN 06/16/24 Emtricitabine/Tenofov Alafenam [Descovy 200-25 mg Tablet] 1 each PO DAILY 06/16/24 Furosemide [Lasix*] 40 mg PO EVERY 3RD DAY 06/16/24 Hydralazine [Apresoline*] 50 mg PO TID 06/16/24 Mometasone/Formoterol [Dulera 200 Mcg/5 Mcg Inhaler] 2 puff IH BID PRN 06/16/24 Raltegravir Potassium [Isentress] 400 mg PO BID 06/16/24 Simethicone 125 mg PO BEDTIME PRN PRN 06/16/24 Spironolactone [Aldactone*] 25 mg PO DAILY 06/16/24 Amox/Clavulanate [Augmentin 875-125 Tab] 1 each PO BID #14 tab 06/18/24 Iron,Carb/Vit C/Vit B12/Folic [Fe C Plus Tablet] 1 each PO DAILY 30 Days #30 tab 06/20/24 Omeprazole 40 mg PO DAILY 30 Days #30 tab 06/20/24 New Medications: Amox/Clavulanate [Augmentin 875-125 Tab] 1 each PO BID #14 tab Iron,Carb/Vit C/Vit B12/Folic [Fe C Plus Tablet] 1 each PO DAILY 30 Days #30 tab Omeprazole 40 mg PO DAILY 30 Days #30 tab Physician Discharge Instructions: Physician Discharge Instructions: Patient presents with intractable nausea/vomiting associated with abdominal pain secondary to small bowel obstruction. CT abdomen on admission noted mild to moderate dilatation of jejunum and proximal likely obstruction. Patient was evaluated by Dr. Simons, general surgeon, who recommended medical management with bowel rest, IV hydration. Her diet was slowly advanced as pain improved. She reported multiple bowel movements since admission. Patient clinically improved however was still requiring oxygen supplementation. She reported having portable O2 tank but didn't have an oxygen concentrator. Patient approved for oxygen concentrator, to be delivered upon discharge. Patient was feeling better, abdominal pain improved, nausea/vomiting resolved, tolerating diet without issues, and was deemed stable for discharge. Given her recurrent abdominal pain, advised patient to follow up with GI in next 1-2 weeks for further GI/anemia work up and to consider repeat EGD/c-scope to further evaluate. Patient is to complete 1 week or oral augmentin on discharge. She was noted to be slightly more anemic than prior hospitalization - her hgb more consistently in 7-8s compared to 9-10s a few months ago. Iron studies this hospitalization were consistent with severe iron deficiency anemia. (iron 24, tsat% 5.6%). Patient received 2 bags of IV iron (250mg) this hospitalization. Advised patient to resume oral iron supplementation on discharge. Medications: Augmentin twice daily for 1 week pantoprazole 40 mg daily oral iron tablets Follow up: PCP 3-5 days GI 1-2 weeks Please call to schedule / confirm appointments Diet: AHA Activity: Fall precautions Followup: Lele Rahman DO, DO [Primary Care Provider] - 1-2 Weeks Time spent managing pt's care (in minutes): 45
[2024-06-20 09:54] VITALS: O2SAT 93
[2024-06-20 12:05] VITALS: BP 169/84; TEMP 97.5
== END 2024-06-20 13:51 | disposition home or self-care (01) | DRG 389 ==
LOC: ER 17:58 → ERHOLD 21:33 → 2ND 06-16 12:11
PROVIDERS: ADMIT Internal Medicine Sleep Medicine; ATTEND Hospitalist
DX: K56.609 Unspecified intestinal obstruction, unspecified as to partial versus complete obstruction (principal); I50.32 Chronic diastolic (congestive) heart failure; J96.10 Chronic respiratory failure, unspecified whether with hypoxia or hypercapnia; I11.0 Hypertensive heart disease with heart failure; E78.5 Hyperlipidemia, unspecified; I48.0 Paroxysmal atrial fibrillation; F31.9 Bipolar disorder, unspecified; D50.9 Iron deficiency anemia, unspecified; K75.9 Inflammatory liver disease, unspecified; K21.9 Gastro-esophageal reflux disease without esophagitis; J44.9 Chronic obstructive pulmonary disease, unspecified; D69.6 Thrombocytopenia, unspecified; I25.10 Atherosclerotic heart disease of native coronary artery without angina pectoris; I25.2 Old myocardial infarction; Z21 Asymptomatic human immunodeficiency virus [HIV] infection status; Z88.5 Allergy status to narcotic agent; Z88.1 Allergy status to other antibiotic agents; Z88.8 Allergy status to other drugs, medicaments and biological substances; Z95.5 Presence of coronary angioplasty implant and graft; Z90.49 Acquired absence of other specified parts of digestive tract; Z79.82 Long term (current) use of aspirin; Z79.52 Long term (current) use of systemic steroids; Z79.899 Other long term (current) drug therapy; Z96.611 Presence of right artificial shoulder joint; Z99.81 Dependence on supplemental oxygen
CPT/HCPCS: 36415; 74018; 74176; 80048; 80053; 81001; 82728; 83540; 83690; 83735; 84466; 85025; 85027; 96361; 96374; 96375; 99285; J0360; J0696; J2270; J2405; J2916; J3535; J7030; J7050; J7512

== ENCOUNTER 2024-06-21 16:25 | Emergency (ER) | payer OTHER ==
[2024-06-21] MEDS ORDERED: ONDANSETRON 4 MG/2 ML VIAL ONE (17:24)
[2024-06-21] MEDS ORDERED: MORPHINE 2 MG/ML SYR ONE (17:25)
[2024-06-21 17:32] LABS: Absolute Lymphocytes (CBC) 0.8 K/uL (0.7-4.9); Absolute Monocytes 0.6 K/uL (0.1-1.3); Absolute Neutrophil 4.7 K/uL (1.8-8.0); Basophils % 0.6 % (0-1.3); Eosinophils % 0.5 % (0-4.4); Hemoglobin 8.5 g/dL (12.0-15.0); Lymphocytes % 12.7 % (15.3-44.8); MCH 25.1 pg (27.0-35.0); MCHC 31.5 g/dL (32.0-36.0); MCV 79.6 fL (80-100); MPV 7.8 fL (7.6-11.3); Monocytes % 9.9 % (3.3-12.3); Neutrophils % 76.3 % (41.7-73.7); Nucleated Red Blood Cells % 0.5 % (0-0); Platelets 175 thou/uL (152-406); Red Cell Distribution Width 17.9 % (12.1-15.2)
[2024-06-21 17:49] LABS: Albumin 3.2 g/dL (3.4-5.0); Albumin/Globulin Ratio 0.9 (1.1-1.8); Anion Gap 11.7 mEq/L (5.0-15.0); Bilirubin Total 0.4 mg/dL (0.2-1.0); Globulin 3.7 g/dL (2.3-3.5); Potassium 3.7 mEq/L (3.5-5.1); Protein, Total 6.9 g/dL (6.4-8.2)
--- NOTE | 2024-06-21 18:14 | RAD REPORT ---
Exam:Abdomen 1 View (KUB) Clinical history: Abdominal pain FINDINGS: Air is present within nondilated large and small bowel in a nonspecific fashion. No obstruction noted No significant abnormal calcification seen
--- NOTE | 2024-06-21 18:35 | EDPHYS ---
Physician Documentation [facility] Name: Marjan Kolb Age: 69 yrs Sex: Female : 1955 Arrival Date: 06/21/2024 Time: 16:25 Bed 7 Private MD: ED Physician Howard Samaniego HPI: 06/21 17:12 This 69 yrs old Female presents to ER via Wheelchair with complaints of Abdominal Pain. rt 17:12 Patient had a recent admission for bowel obstruction, was discharged yesterday. States rt that her pain returned with diarrhea today. Denies other acute complaints at this time, symptoms are moderate in severity, no other aggravating elevating factors.. Historical: - Allergies: 17:03 ACETAMINOPHEN; jb4 17:03 adhesive tape; jb4 17:03 Azithromycin; jb4 17:03 butorphanol tartrate; jb4 17:03 Fentanyl; jb4 17:03 HYDROCODONE; jb4 17:03 metoclopramide HCl; jb4 17:03 Trimethoprim-Sulfamethoxazole; jb4 - PMHx: 17:03 Migraine; angina pectoris; a-fib; HIV positive; NSTEMI; bowel obstruction (shoulder jb4 replacement); - PSHx: 17:03 coronary stents; Cholecystectomy; shoulder replacement (NSTE); jb4 - Immunization history:: Adult Immunizations up to date. - Infectious Disease History:: Denies. - Social history:: Smoking status: Patient denies any tobacco usage or history of. - Family history:: not pertinent. ROS: 17:12 Constitutional: Negative for fever, chills, and weight loss, Cardiovascular: Negative rt for chest pain, palpitations, and edema, Respiratory: Negative for shortness of breath, cough, wheezing, and pleuritic chest pain, MS/Extremity: Negative for injury and deformity, Skin: Negative for injury, rash, and discoloration, Neuro: Negative for headache, weakness, numbness, tingling, and seizure, 17:12 Abdomen/GI: Positive for abdominal pain, nausea, diarrhea, Exam: 17:12 Constitutional: This is a well developed, well nourished patient who is awake, alert, rt and in no acute distress. Head/Face: Normocephalic, atraumatic. Chest/axilla: Normal chest wall appearance and motion. Nontender with no deformity. No lesions are appreciated. Cardiovascular: Regular rate and rhythm with a normal S1 and S2. No gallops, murmurs, or rubs. Normal PMI, no JVD. No pulse deficits. Respiratory: Lungs have equal breath sounds bilaterally, clear to auscultation and percussion. No rales, rhonchi or wheezes noted. No increased work of breathing, no retractions or nasal flaring. Skin: Warm, dry with normal turgor. Normal color with no rashes, no lesions, and no evidence of cellulitis. MS/ Extremity: Pulses equal, no cyanosis. Neurovascular intact. Full, normal range of motion. Neuro: Awake and alert, GCS 15, oriented to person, place, time, and situation. Cranial nerves II-XII grossly intact. Motor strength 5/5 in all extremities. Sensory grossly intact. Cerebellar exam normal. Normal gait. 17:12 Abdomen/GI: Tenderness diffusely without rebound, guarding, distention, Vital Signs: 17:01 BP 174 / 121; Pulse 85; Resp 16; Temp 98.6(O); Pulse Ox 100% on R/A; Weight 79.38 kg jb4 (R); Height 5 ft. 4 in. (R); Pain 10/10; 17:22 BP 178 / 118; Pulse 80; Resp 22 S; Pulse Ox 100% on 3 lpm NC; aa5 18:30 BP 156 / 99; Pulse 80; Resp 18 S; Pulse Ox 96% on R/A; aa5 17:01 Body Mass Index 30.04 (79.38 kg, 162.56 cm) jb4 17:01 Pain Scale: Adult jb4 MDM: 17:03 Medical Screening Exam initiated rt 18:57 Differential Diagnosis Obstruction, chronic abdominal pain. Data reviewed: vital signs, rt nurses notes. Management of patient was discussed with the following: Scrub Tech: Discussed with Dr. Rahman, no indications for admission, will follow-up patient next week.. I considered the following discharge prescriptions or medication management in the emergency department Medications were administered in the Emergency Department. See MAR. Independent interpretation of the following test(s) in the Emergency Department X-Ray: My interpretation is No bowel obstruction seen on interpretation of x-ray images. Test considered but Not performed: CT: Patient with innumerable CT scans, will spare patient repeat radiation dose. Care significantly affected by the following chronic conditions: Hypertension. Counseling: I had a detailed discussion with the patient and/or guardian regarding the historical points, exam findings, and any diagnostic results supporting the discharge/admit diagnosis, lab results, radiology results, the need for outpatient follow up. Response to treatment: the patient's symptoms have mildly improved after treatment. 06/21 17:08 Order name: CBC with Diff; Complete Time: 17:53 rt 06/21 17:08 Order name: CMP; Complete Time: 17:53 rt 06/21 17:08 Order name: Lipase; Complete Time: 17:53 rt 06/21 17:08 Order name: Abdomen 1 View (KUB) XRAY; Complete Time: 18:17 rt 06/21 17:08 Order name: IV Saline Lock; Complete Time: 17:21 rt 06/21 17:08 Order name: Labs collected and sent; Complete Time: 17:21 rt Administered Medications: 17:34 Drug: Ondansetron IVP 4 mg IVP once; over 2 minutes Route: IVP; Site: right upper arm; aa5 17:40 Follow up: Response: No adverse reaction aa5 17:34 Drug: morphine IVP or IV 2 mg IVP once over 4 mins Route: IVP; Infused Over: 4 mins; aa5 Site: right upper arm; 17:40 Follow up: Response: No adverse reaction aa5 Disposition Summary: 06/21/24 18:35 Discharge Ordered Notes: Location: Home rt Problem: an ongoing problem rt Symptoms: have improved rt Condition: Stable rt Diagnosis - Abdominal pain, unspecified rt Followup: rt - With: Chance Rahman MD - When: 5 - 6 days - Reason: Discharge Instructions: - Discharge Summary Sheet rt - Abdominal Pain, Adult rt Forms: - Medication Reconciliation Form rt - Antibiotic Education rt - Prescription Opioid Use rt - Patient Portal Instructions rt - Leadership Thank You Letter rt Signatures: Dispatcher [facility] Lindsay Santiago RN RN aa5 Mode Bhatt, ASHLEY RN jb4 Howard Samaniego MD MD rt Corrections: (The following items were deleted from the chart) 17:08 17:08 CBC+H.LAB.BRZ ordered. EDMS EDMS 17:08 17:08 COMPREHENSIVE METABOLIC PANEL+C.LAB.BRZ ordered. EDMS EDMS 17:08 17:08 LIPASE+C.LAB.BRZ ordered. EDMS EDMS : 17: Abdomen 1 View (KUB)+RAD.RAD.BRZ ordered. EDMS EDMS
--- NOTE | 2024-06-21 18:35 | ER ---
Nurse's Notes [facility] Name: Marjan Kolb Age: 69 yrs Sex: Female : 1955 Arrival Date: 06/21/2024 Time: 16:25 Bed 7 Private MD: Diagnosis: Abdominal pain, unspecified Presentation: 06/21 17:01 Chief complaint: Patient states: I was recently here for a bowel obstruction and jb4 released yesterday. I was told to come back if I am still having pain. I starting having pain and diarrhea this morning. Coronavirus screen: At this time, the client does not indicate any symptoms associated with coronavirus-19. Ebola Screen: No symptoms or risks identified at this time. Initial Sepsis Screen: Does the patient meet any 2 criteria? No. Patient's initial sepsis screen is negative. Does the patient have a suspected source of infection? No. Patient's initial sepsis screen is negative. Risk Assessment: Do you want to hurt yourself or someone else? Patient reports no desire to harm self or others. Onset of symptoms was June 21, 2024. Transition of care: patient was not received from another setting of care. 17:01 Method Of Arrival: Wheelchair jb4 17:01 Acuity: BLAYNE 3 jb4 Historical: - Allergies: 17:03 ACETAMINOPHEN; jb4 17:03 adhesive tape; jb4 17:03 Azithromycin; jb4 17:03 butorphanol tartrate; jb4 17:03 Fentanyl; jb4 17:03 HYDROCODONE; jb4 17:03 metoclopramide HCl; jb4 17:03 Trimethoprim-Sulfamethoxazole; jb4 - PMHx: 17:03 Migraine; angina pectoris; a-fib; HIV positive; NSTEMI; bowel obstruction (shoulder jb4 replacement); - PSHx: 17:03 coronary stents; Cholecystectomy; shoulder replacement (NSTE); jb4 - Immunization history:: Adult Immunizations up to date. - Infectious Disease History:: Denies. - Social history:: Smoking status: Patient denies any tobacco usage or history of. - Family history:: not pertinent. Screenin:15 [facility] ED Fall Risk Assessment (Adult) History of falling in the last 3 months, aa5 including since admission No falls in past 3 months (0 pts) Confusion or Disorientation No (0 pts) Intoxicated or Sedated No (0 pts) Impaired Gait No (0 pts) Mobility Assist Device Used No (0 pt) Altered Elimination No (0 pt) Score/Fall Risk Level 0 - 2 = Low Risk Oriented to surroundings, Maintained a safe environment, Educated pt \T\ family on fall prevention, incl call for assistance when getting out of bed, Assessed \T\ reinforced patient's understanding of fall precautions. Abuse screen: Denies threats or abuse. Nutritional screening: No deficits noted. Tuberculosis screening: No symptoms or risk factors identified. Assessment: 17:15 General: Appears uncomfortable, Behavior is calm, cooperative. Pain: Complains of pain aa5 in right lower quadrant and left lower quadrant Pain currently is 10 out of 10 on a pain scale. Quality of pain is described as sharp, Is continuous. Neuro: Level of Consciousness is awake, alert, obeys commands, Oriented to person, place, time, situation. Cardiovascular: Patient's skin is warm and dry. Respiratory: Airway is patent Respiratory effort is even, unlabored, Respiratory pattern is regular, symmetrical. GI: Abdomen is round Bowel sounds present X 4 quads. Abd is soft X 4 quads Reports diarrhea, nausea, vomiting. : No signs and/or symptoms were reported regarding the genitourinary system. EENT: No signs and/or symptoms were reported regarding the EENT system. Derm: Skin is pink, warm \T\ dry. Musculoskeletal: Range of motion: intact in all extremities. 17:40 Reassessment: Patient is alert, oriented x 3, equal unlabored respirations, skin aa5 warm/dry/pink. Patient states feeling better. 18:55 Reassessment: Patient is alert, oriented x 3, equal unlabored respirations, skin aa5 warm/dry/pink. Patient states feeling better. Vital Signs: 17:01 BP 174 / 121; Pulse 85; Resp 16; Temp 98.6(O); Pulse Ox 100% on R/A; Weight 79.38 kg jb4 (R); Height 5 ft. 4 in. (R); Pain 10/10; 17:22 BP 178 / 118; Pulse 80; Resp 22 S; Pulse Ox 100% on 3 lpm NC; aa5 18:30 BP 156 / 99; Pulse 80; Resp 18 S; Pulse Ox 96% on R/A; aa5 17:01 Body Mass Index 30.04 (79.38 kg, 162.56 cm) jb4 17:01 Pain Scale: Adult jb4 ED Course: 16:28 Patient arrived in ED. mr 16:30 Howard Samaniego MD is Attending Physician. rt 16:56 Lindsay Schulz, RN is Primary Nurse. aa5 17:03 Triage completed. jb4 17:03 Arm band placed on right wrist. jb4 17:15 Patient has correct armband on for positive identification. Placed in gown. Bed in low aa5 position. Call light in reach. Side rails up X 1. Pulse ox on. NIBP on. 17:21 Initial lab(s) drawn, by me, sent to lab. Inserted saline lock: 24 gauge in right upper aa5 arm, using aseptic technique. Blood collected. Flushed with 10 mL NS. 17:54 Abdomen 1 View (KUB) XRAY In Process Unspecified. EDMS 18:34 Chance Rahman MD is Referral Physician. rt 18:55 No provider procedures requiring assistance completed. IV discontinued, intact, aa5 bleeding controlled, No redness/swelling at site. Pressure dressing applied. Administered Medications: 17:34 Drug: Ondansetron IVP 4 mg IVP once; over 2 minutes Route: IVP; Site: right upper arm; aa5 17:40 Follow up: Response: No adverse reaction aa5 17:34 Drug: morphine IVP or IV 2 mg IVP once over 4 mins Route: IVP; Infused Over: 4 mins; aa5 Site: right upper arm; 17:40 Follow up: Response: No adverse reaction aa5 Medication: 17:40 VIS not applicable for this client. aa5 Outcome: 18:35 Discharge ordered by . rt 18:55 Discharged to home via wheelchair, aa5 18:55 Condition: stable 18:55 Discharge instructions given to patient, Instructed on discharge instructions, follow up and referral plans. Demonstrated understanding of instructions, follow-up care, 18:59 Patient left the ED. jl7 Signatures: Dispatcher [employer] EDHI HillJessie, Reg Reg mr SchulzLindsay kauffman, RN RN aa5 Mode Bhatt RN RN jb4 Jesica Ramos RN RN jl7 Howard Samaniego MD MD rt
[2024-06-22 02:57] VITALS: TEMP 98.6; O2SAT 100
[2024-06-22 03:01] VITALS: BP 178/118
== END 2024-06-21 18:59 | disposition home or self-care (01) ==
LOC: ER 16:25
DX: R10.9 Unspecified abdominal pain (principal); I48.91 Unspecified atrial fibrillation; I25.2 Old myocardial infarction; Z21 Asymptomatic human immunodeficiency virus [HIV] infection status; Z88.1 Allergy status to other antibiotic agents; Z88.5 Allergy status to narcotic agent; Z91.09 Other allergy status, other than to drugs and biological substances; Z95.5 Presence of coronary angioplasty implant and graft
CPT/HCPCS: 85025; 36415; 83690; 80053; 74018; 96375; 96374; 99284; J2270; J2405

== ENCOUNTER 2024-06-23 12:38 | Emergency (ER) | payer OTHER ==
[2024-06-23 13:36] LABS: Absolute Lymphocytes (CBC) 0.7 K/uL (0.7-4.9); Absolute Monocytes 0.4 K/uL (0.1-1.3); Absolute Neutrophil 4.1 K/uL (1.8-8.0); Basophils % 0.4 % (0-1.3); Eosinophils % 0.5 % (0-4.4); Hematocrit 31.4 % (36.0-45.0); Hemoglobin 9.6 g/dL (12.0-15.0); Lymphocytes % 12.9 % (15.3-44.8); MCH 24.8 pg (27.0-35.0); MCHC 30.6 g/dL (32.0-36.0); MPV 7.2 fL (7.6-11.3); Monocytes % 7.5 % (3.3-12.3); Neutrophils % 78.7 % (41.7-73.7); Nucleated Red Blood Cells % 0.5 % (0-0); Platelets 152 thou/uL (152-406); RBC Red Blood Cell Count 3.87 M/uL (3.86-4.86); Red Cell Distribution Width 18.3 % (12.1-15.2)
[2024-06-23 13:44] LABS: AST/SGOT 17 U/L (15-37); Albumin 3.3 g/dL (3.4-5.0); Albumin/Globulin Ratio 0.9 (1.1-1.8); Alkaline Phosphatase 65 U/L (45-117); Anion Gap 9.7 mEq/L (5.0-15.0); BUN Blood Urea Nitrogen 21 mg/dL (7-18); Bicarbonate 23 mEq/L (21-32); Bilirubin Total 0.5 mg/dL (0.2-1.0); Globulin 3.6 g/dL (2.3-3.5); Glomerular Filtration Rate 38 ml/min (=/>90); Glucose Level 116 mg/dL (74-106); Lipase 38 U/L (13-75); Potassium 3.7 mEq/L (3.5-5.1); Protein, Total 6.9 g/dL (6.4-8.2); Sodium Level 144 mEq/L (136-145)
[2024-06-23 13:47] LABS: ALT/SGPT < 14 U/L (13-56)
--- NOTE | 2024-06-23 14:04 | RAD REPORT ---
EXAMINATION: CT Abdomen Pelvis Wo Contrast CLINICAL INDICATION: Female, 69 years old. Abd pain;Constipation TECHNIQUE: CT abdomen and pelvis was performed, without IV contrast, as per department protocol. Axia l, sagittal and coronal reconstructions were obtained. One or more of the following dose reduction techniques were used: Automated exposure control, adjustment of the mA and kV according to the patien t size, and iterative reconstruction. Unless otherwise specified, incidental findings do not require dedicated imaging follow-up. COMPARISON: 06/15/2024 FINDINGS: The lack of intravenous contrast limits the sensitivity of this exam for evaluation of solid visceral organs, vascular structures, and retroperitoneum. LOWER CHEST: Small layering bilateral pleural effusions, stable. Underlying mild atelectasis. Stable cardiomegaly. LIVER: Normal in size and contour. No focal lesion. BILIARY SYSTEM: Status post cholecystectomy. SPLEEN: Normal size. No focal lesion. PANCREAS: No mass, ductal dilation, or freedom-pancreatic fluid. ADRENALS: Normal; no mass. KIDNEYS AND URETERS: Bilateral cortical fluid density exophytic cysts, largest at the left upper pole measuring 6.6 cm, grossly stable appearance. Normal size and contour. No hydronephrosis. URINARY BLADDER: Normal contour. GASTROINTESTINAL TRACT: Wall prominence of the second and third duodenal segments with mild diffuse r etroperitoneal fat stranding extending into the mesenteric root. No evidence of bowel obstruction, or fluid collections. Stable mild perihepatic and pelvic ascites.. APPENDIX: Normal appendix. LYMPH NODES: No lymphadenopathy. MUSCULOSKELETAL: No acute or suspicious osseous abnormality. ADDITIONAL FINDINGS: Diffuse body wall edema, more pronounced than on prior exam. IMPRESSION: Wall prominence of the second and third duodenal segments. Mild diffuse retroperitoneal fat stranding extending to the mesenteric root. Progressive diffuse body wall edema. Stable bilateral small layering effusions and mild volume free a scites Constellation of findings could be related to third spacing/fluid overload. The duodenal findings how ever could show a similar picture with acute infectious or inflammatory duodenitis. Please correlate clinically. Other stable findings as above.
[2024-06-23] MEDS ORDERED: MORPHINE 4 MG/ML SYR ONE (14:15)
[2024-06-23] MEDS ORDERED: METRONIDAZOLE 500mg IVPB 500 MG/100 ML BAG IV ONE (14:32)
[2024-06-23] MEDS ORDERED: CIPROFLOXACIN 400mg IV 400 MG/200 ML BAG IV ONE (14:32)
[2024-06-23] MEDS ORDERED: FUROSEMIDE 40 MG/4 ML VIAL ONE (15:31)
--- NOTE | 2024-06-23 16:39 | ER ---
Nurse's Notes [facility] Name: Marjan Kolb Age: 69 yrs Sex: Female : 1955 Arrival Date: 06/23/2024 Time: 12:38 Bed 20 Private MD: Diagnosis: Abdominal pain, unspecified;Duodenitis Presentation: 06/23 12:40 Chief complaint: EMS states: patient has been having abdominal pain, nausea and ap3 vomiting for a few days. patient received 25mg Phenergan IM in route with EMS. patient states she did not take any of her blood pressure medications today. Coronavirus screen: At this time, the client does not indicate any symptoms associated with coronavirus-19. Ebola Screen: No symptoms or risks identified at this time. Initial Sepsis Screen: Does the patient meet any 2 criteria? No. Patient's initial sepsis screen is negative. Does the patient have a suspected source of infection? No. Patient's initial sepsis screen is negative. Risk Assessment: Do you want to hurt yourself or someone else? Patient reports no desire to harm self or others. Onset of symptoms is unknown. Care prior to arrival: Medication(s) given: Phenergan, 25 mg. 12:40 Method Of Arrival: EMS: [facility] ap3 12:40 Acuity: BLAYNE 2 ap3 Triage Assessment: 12:43 General: Appears uncomfortable, Behavior is calm, cooperative, appropriate for age. ap3 Pain: Complains of pain in abdomen Pain currently is 10 out of 10 on a pain scale. Pain began gradually. Neuro: Level of Consciousness is awake, alert, obeys commands, Oriented to person, place, time, situation, Appropriate for age Speech is normal. Cardiovascular: Patient's skin is warm and dry. Respiratory: Airway is patent Respiratory effort is even, unlabored, Respiratory pattern is regular, symmetrical. GI: Reports lower abdominal pain, upper abdominal pain, nausea, vomiting. Historical: - Allergies: 12:43 ACETAMINOPHEN; ap3 12:43 adhesive tape; ap3 12:43 Azithromycin; ap3 12:43 butorphanol tartrate; ap3 12:43 Fentanyl; ap3 12:43 HYDROCODONE; ap3 12:43 metoclopramide HCl; ap3 12:43 Trimethoprim-Sulfamethoxazole; ap3 - PMHx: 12:43 a-fib; angina pectoris; bowel obstruction (shoulder replacemen); HIV positive; ap3 Migraine; NSTEMI; - PSHx: 12:43 Cholecystectomy; coronary stents; shoulder replacement (NSTE); ap3 - Immunization history:: Adult Immunizations up to date. - Infectious Disease History:: Denies. - Social history:: Smoking status: Patient denies any tobacco usage or history of. - Family history:: not pertinent. - Hospitalizations: : The patient was recently seen at [facility]. Screenin:44 Abuse screen: Denies threats or abuse. Nutritional screening: No deficits noted. ap3 Tuberculosis screening: No symptoms or risk factors identified. 12:50 [facility] ED Fall Risk Assessment (Adult) History of falling in the last 3 months, kj2 including since admission No falls in past 3 months (0 pts) Confusion or Disorientation No (0 pts) Intoxicated or Sedated No (0 pts) Impaired Gait No (0 pts) Mobility Assist Device Used No (0 pt) Altered Elimination No (0 pt) Score/Fall Risk Level 0 - 2 = Low Risk Maintained a safe environment, Hourly rounding (assess needs \T\ fall precautionary measures) done. Assessment: 12:50 General: Appears in no apparent distress. Behavior is cooperative. Pain: Complains of kj2 pain in abdomen Pain currently is 7 out of 10 on a pain scale. Neuro: Level of Consciousness is awake, alert, obeys commands, Oriented to person, place, time, situation. Cardiovascular: Patient's skin is warm and dry. Respiratory: Airway is patent Respiratory effort is even, unlabored. GI: Abdomen is non-distended, Reports nausea. : No signs and/or symptoms were reported regarding the genitourinary system. 14:31 Reassessment: PT PLACED ON PUREWICK AT THIS TIME. kc6 15:23 Reassessment: Patient appears in no apparent distress at this time. Patient and/or kj2 family updated on plan of care and expected duration. Pain level reassessed. Patient is alert, oriented x 3, equal unlabored respirations, skin warm/dry/pink. 16:49 Reassessment: Patient appears in no apparent distress at this time. Patient and/or kj2 family updated on plan of care and expected duration. Pain level reassessed. Patient is alert, oriented x 3, equal unlabored respirations, skin warm/dry/pink. Vital Signs: 12:40 BP 199 / 123; Pulse 60; Resp 19; Temp 97.9(O); Weight 79.38 kg; Pain 10/10; ap3 13:30 BP 164 / 98; Pulse 88; Resp 20; Pulse Ox 100% on R/A; kj2 14:30 BP 162 / 98; Pulse 88; Resp 18; Pulse Ox 98% on R/A; kj2 15:30 BP 168 / 96; Pulse 70; Resp 18; Pulse Ox 100% on R/A; kj2 16:30 BP 162 / 94; Pulse 68; Resp 18; Pulse Ox 100% on R/A; kj2 17:05 BP 166 / 88; Pulse 78; Resp 18; Temp 98.2; Pulse Ox 100% on R/A; kj2 12:40 Pain Scale: Adult ap3 ED Course: 12:40 Patient arrived in ED. ap3 12:43 Triage completed. ap3 12:43 Ramon Baker MD is Attending Physician. rn 12:44 Patient has correct armband on for positive identification. Placed in gown. Bed in low ap3 position. Call light in reach. Side rails up X2. Client placed on continuous cardiac and pulse oximetry monitoring. NIBP monitoring applied. management trainer on. Pulse ox on. NIBP on. 12:45 Arm band placed on right wrist. ap3 12:50 Provided Education on: call light. kj2 13:18 Initial lab(s) drawn, by me, sent to lab. Inserted saline lock: 24 gauge in left ,using cm10 aseptic technique. great toe Blood collected. Flushed with 10 mL NS. 13:32 CT Abd/Pelvis - Without Contrast In Process Unspecified. EDMS 13:41 Gayle Sidhu, RN is Primary Nurse. kj2 14:31 Repositioned patient. Cleaned of incontinence. Linen changed. kc6 15:23 No provider procedures requiring assistance completed. kj2 16:50 IV discontinued, intact, bleeding controlled, No redness/swelling at site. Pressure kj2 dressing applied. Administered Medications: 14:30 Drug: morphine IVP or IV 4 mg IVP once over 4 mins Route: IVP; Infused Over: 4 mins; kc6 Site: Other; 17:06 Follow up: Response: No adverse reaction kj2 14:38 Drug: metroNIDAZOLE IVPB 500 mg 100 ml IVPB at 200 ml/hr once over 30 mins {Note: IV kj2 via left foot.} Volume: 100 ml; Route: IVPB; Rate: 200 ml/hr; Infused Over: 30 mins; Site: Other; 17:06 Follow up: IV Status: Completed infusion; IV Intake: 100ml kj2 15:45 Drug: Furosemide IVP 40 mg IVP once; give over 2 minutes {Note: left foot.} Route: IVP; kj2 Site: Other; 17:06 Follow up: Response: No adverse reaction kj2 15:46 Drug: Ciprofloxacin IVPB 400 mg 200 ml IVPB once over 60 mins {Note: left foot.} kj2 Volume: 200 ml; Route: IVPB; Infused Over: 60 mins; Site: Other; 17:07 Follow up: IV Status: Completed infusion; IV Intake: 200ml kj2 Medication: 13:44 VIS not applicable for this client. kj2 Intake: 17:06 IV: 100ml; Total: 100ml. kj2 17:07 IV: 200ml; Total: 300ml. kj2 Outcome: 16:39 Discharge ordered by . rn 16:49 Discharged to home via wheelchair, kj2 16:49 Condition: stable 16:49 Discharge instructions given to patient, Instructed on discharge instructions, follow up and referral plans. 17:18 Patient left the ED. kj2 Signatures: Dispatcher [employer] Ramon Linton MD MD rn Prokisch, Amanda RN RN ap3 Madyson Mills RN RN kc6 Anika Simons RN RN cm10 Gayle Sidhu RN RN kj2
--- NOTE | 2024-06-23 16:39 | EDPHYS ---
Physician Documentation [facility] Name: Marjan Kolb Age: 69 yrs Sex: Female : 1955 Arrival Date: 06/23/2024 Time: 12:38 Bed 20 Private MD: ED Physician Ramon Baker HPI: 06/23 14:00 This 69 yrs old Female presents to ER via EMS with complaints of Abdominal Pain. rn 14:00 The patient presents with abdominal pain that is diffuse. Onset: The symptoms/episode rn began/occurred this morning. The symptoms do not radiate. Associated signs and symptoms: Pertinent positives: nausea, vomiting, Pertinent negatives: blood in stools, chest pain, constipation, diarrhea, dysuria, fever. Modifying factors: The symptoms are alleviated by nothing, the symptoms are aggravated by touching the area. Severity of pain: At its worst the pain was moderate in the emergency department the pain is unchanged. The patient has experienced similar episodes in the past. Patient reports diffuse abdominal pain that began this morning. Associated with nausea and vomiting. No blood in stool. Does report constipation and coming out "like rabbit pellets". Seen here a few days ago for the same problem and states has not improved and was not given medicine.. Historical: - Allergies: 12:43 ACETAMINOPHEN; ap3 12:43 adhesive tape; ap3 12:43 Azithromycin; ap3 12:43 butorphanol tartrate; ap3 12:43 Fentanyl; ap3 12:43 HYDROCODONE; ap3 12:43 metoclopramide HCl; ap3 12:43 Trimethoprim-Sulfamethoxazole; ap3 - PMHx: 12:43 a-fib; angina pectoris; bowel obstruction (shoulder replacemen); HIV positive; ap3 Migraine; NSTEMI; - PSHx: 12:43 Cholecystectomy; coronary stents; shoulder replacement (NSTE); ap3 - Immunization history:: Adult Immunizations up to date. - Infectious Disease History:: Denies. - Social history:: Smoking status: Patient denies any tobacco usage or history of. - Family history:: not pertinent. - Hospitalizations: : The patient was recently seen at [facility]. ROS: 14:00 Constitutional: Negative for fever, chills, and weight loss, Cardiovascular: Negative rn for chest pain, palpitations, and edema, Respiratory: Negative for shortness of breath, cough, wheezing, and pleuritic chest pain, Abdomen/GI: Positive for abdominal pain with nausea and vomiting Back: Negative for injury and pain, MS/Extremity: Negative for injury and deformity, Skin: Negative for injury, rash, and discoloration, Neuro: Negative for headache, weakness, numbness, tingling, and seizure, Exam: 14:00 Constitutional: This is a well developed, well nourished patient who is awake, alert, rn and in no acute distress. Cardiovascular: Regular rate and rhythm. No pulse deficits. Respiratory: No increased work of breathing, no retractions or nasal flaring. Abdomen/GI: Soft, mild mid and lower abdominal tenderness. No peritoneal signs or focal tenderness Vital Signs: 12:40 BP 199 / 123; Pulse 60; Resp 19; Temp 97.9(O); Weight 79.38 kg; Pain 10/10; ap3 13:30 BP 164 / 98; Pulse 88; Resp 20; Pulse Ox 100% on R/A; kj2 14:30 BP 162 / 98; Pulse 88; Resp 18; Pulse Ox 98% on R/A; kj2 15:30 BP 168 / 96; Pulse 70; Resp 18; Pulse Ox 100% on R/A; kj2 16:30 BP 162 / 94; Pulse 68; Resp 18; Pulse Ox 100% on R/A; kj2 17:05 BP 166 / 88; Pulse 78; Resp 18; Temp 98.2; Pulse Ox 100% on R/A; kj2 12:40 Pain Scale: Adult ap3 MDM: 12:44 Medical Screening Exam initiated rn 16:38 Differential diagnosis: bowel obstruction, diverticulitis, gastritis, gastroesophageal rn reflux disease, Peptic Ulcer Disease, Perf. Duodenal Ulcer, Perf. Gastric Ulcer, Gastritis, duodenitis. Data reviewed: vital signs, nurses notes, lab test result(s), radiologic studies, CT scan, and as a result, I will discharge patient. Counseling: I had a detailed discussion with the patient and/or guardian regarding the historical points, exam findings, and any diagnostic results supporting the discharge/admit diagnosis, lab results, radiology results, the need for outpatient follow up, to return to the emergency department if symptoms worsen or persist or if there are any questions or concerns that arise at home. Response to treatment: the patient's symptoms have mildly improved after treatment. 16:38 Special discussion: Based on the patient's Hx, exam, and Dx evaluation, there is no rn indication for emergent surgery or inpatient Tx. It is understood by the patient/guardian that if the Sx's persist or worsen they need to return immediately for re-evaluation. I discussed with the patient/guardian in detail that at this point there is no indication for admission to the hospital. It is understood, however, that if the symptoms persist or worsen the patient needs to return immediately for re-evaluation. 06/23 12:47 Order name: CBC with Diff; Complete Time: 13:56 rn 06/23 12:47 Order name: CMP; Complete Time: 13:56 rn 06/23 12:47 Order name: Lipase; Complete Time: 13:56 rn 06/23 12:47 Order name: CT Abd/Pelvis - Without Contrast; Complete Time: 14:13 rn 06/23 12:47 Order name: IV Saline Lock; Complete Time: 14:19 rn 06/23 12:47 Order name: Labs collected and sent; Complete Time: 14:19 rn Administered Medications: 14:30 Drug: morphine IVP or IV 4 mg IVP once over 4 mins Route: IVP; Infused Over: 4 mins; kc6 Site: Other; 17:06 Follow up: Response: No adverse reaction kj2 14:38 Drug: metroNIDAZOLE IVPB 500 mg 100 ml IVPB at 200 ml/hr once over 30 mins {Note: IV kj2 via left foot.} Volume: 100 ml; Route: IVPB; Rate: 200 ml/hr; Infused Over: 30 mins; Site: Other; 17:06 Follow up: IV Status: Completed infusion; IV Intake: 100ml kj2 15:45 Drug: Furosemide IVP 40 mg IVP once; give over 2 minutes {Note: left foot.} Route: IVP; kj2 Site: Other; 17:06 Follow up: Response: No adverse reaction kj2 15:46 Drug: Ciprofloxacin IVPB 400 mg 200 ml IVPB once over 60 mins {Note: left foot.} kj2 Volume: 200 ml; Route: IVPB; Infused Over: 60 mins; Site: Other; 17:07 Follow up: IV Status: Completed infusion; IV Intake: 200ml kj2 Disposition Summary: 06/23/24 16:39 Discharge Ordered Notes: Location: Home rn Problem: new rn Symptoms: have improved rn Condition: Stable rn Diagnosis - Abdominal pain, unspecified rn - Duodenitis rn Followup: rn - With: Private Physician - When: As needed - Reason: Recheck today's complaints, Re-evaluation by your physician Discharge Instructions: - Discharge Summary Sheet rn - Abdominal Pain, Adult rn - Duodenitis rn Forms: - Medication Reconciliation Form rn - Antibiotic furniture restorer - Prescription Opioid Use rn - Patient Portal Instructions rn - Leadership Thank You Letter rn Prescriptions: - Cipro 500 mg Oral Tablet - take 1 tablet ORAL route every 12 hours for 10 days; 20 tablet; Refills: 0, rn Product Selection Permitted - Flagyl 500 mg Oral tablet - take 1 tablet ORAL route every 12 hours for 10 days; 20 tablet; Refills: 0, rn Product Selection Permitted - Protonix 40 mg Oral tablet, delayed release (enteric coated) - take 1 tablet ORAL route once daily; 14 tablet; Refills: 0, Product Selection rn Permitted Signatures: Dispatcher [employer] EDMS Ramon Baker MD MD rn Prokisch, Amanda RN RN ap3 Madyson Mills RN RN kc6 Gayle Sidhu RN RN kj2 Corrections: (The following items were deleted from the chart) 12:48 12:48 CBC+H.LAB.BRZ ordered. EDMS EDMS 12:48 12:48 COMPREHENSIVE METABOLIC PANEL+C.LAB.BRZ ordered. EDMS EDMS 12:48 12:48 LIPASE+C.LAB.BRZ ordered. EDMS EDMS 12:48 12:48 Abdomen Pelvis Wo Con+CT.RAD.BRZ ordered. EDMS EDMS
[2024-06-23 17:43] VITALS: O2SAT 100
[2024-06-23 17:46] VITALS: BP 166/88; TEMP 98.2
== END 2024-06-23 17:18 | disposition home or self-care (01) ==
LOC: ER 12:38
DX: K29.80 Duodenitis without bleeding (principal)
CPT/HCPCS: 96365; 85025; 36415; 83690; 80053; 74176; 96375; 99285; J1940; J0744

== ENCOUNTER 2024-06-25 10:56 | Emergency (ER) | payer OTHER ==
[2024-06-25] MEDS ORDERED: PROMETHAZINE INJ 25 MG/ML AMP ONE (15:12)
[2024-06-25] MEDS ORDERED: DICYCLOMINE HCL 20 MG/2 ML AMP IM ONE (15:12)
[2024-06-25 16:06] LABS: Absolute Eosinophils 0.1 K/uL (0-0.5); Absolute Lymphocytes (CBC) 0.9 K/uL (0.7-4.9); Absolute Monocytes 0.6 K/uL (0.1-1.3); Absolute Neutrophil 5.4 K/uL (1.8-8.0); Basophils % 0.5 % (0-1.3); Eosinophils % 0.8 % (0-4.4); Hematocrit 28.1 % (36.0-45.0); Hemoglobin 9.2 g/dL (12.0-15.0); Lymphocytes % 12.9 % (15.3-44.8); MCHC 32.6 g/dL (32.0-36.0); MCV 79.6 fL (80-100); MPV 8.2 fL (7.6-11.3); Monocytes % 8.5 % (3.3-12.3); Neutrophils % 77.3 % (41.7-73.7); Nucleated Red Blood Cells % 0.1 % (0-0); Platelets 130 thou/uL (152-406); RBC Red Blood Cell Count 3.53 M/uL (3.86-4.86)
[2024-06-25 16:08] LABS: Specific Gravity 1.012 (1.005-1.030); Urine Bilirubin NEGATIVE (Negative); Urine Blood Negative (Negative); Urine Clarity Clear (Clear); Urine Color Light-Yellow (Yellow); Urine Glucose NEGATIVE (Negative); Urine Ketones NEGATIVE (Negative); Urine Microscopic Reflex YN NO UMIC; Urine Nitrite NEGATIVE (Negative); Urine Protein NEGATIVE (Negative); Urine Urobilinogen Normal (Normal); Urine pH 5.5 (5.0-7.0)
[2024-06-25 16:17] LABS: AST/SGOT 17 U/L (15-37); Albumin 3.2 g/dL (3.4-5.0); Albumin/Globulin Ratio 0.9 (1.1-1.8); Alkaline Phosphatase 66 U/L (45-117); BUN Blood Urea Nitrogen 12 mg/dL (7-18); Bicarbonate 28 mEq/L (21-32); Bilirubin Total 0.6 mg/dL (0.2-1.0); Globulin 3.4 g/dL (2.3-3.5); Glomerular Filtration Rate 64 ml/min (=/>90); Glucose Level 97 mg/dL (74-106); Lipase 58 U/L (13-75); Protein, Total 6.6 g/dL (6.4-8.2); Sodium Level 144 mEq/L (136-145)
[2024-06-25 16:19] LABS: ALT/SGPT < 14 U/L (13-56)
--- NOTE | 2024-06-25 16:38 | RAD REPORT ---
EXAM: Abdomen Acute Series HISTORY: Abdominal pain COMPARISON: 06/21/2024 FINDINGS: Pulmonary vascular congestion. No definite edema. Moderate cardiomegaly. Nonobstructive bowel gas pattern. No free air or air-fluid levels are seen on upright examination. No suspicious calcifications are seen. No acute osseous abnormality. Bilateral shoulder arthroplasties. Other: n/a IMPRESSION 1. Nonobstructive bowel gas pattern. 2. Pulmonary vascular congestion with moderate cardiomegaly.
[2024-06-25] MEDS ORDERED: HYDRALAZINE HCL 20 MG/ML VIAL ONE (17:12)
--- NOTE | 2024-06-25 17:57 | EDPHYS ---
Physician Documentation [facility] Name: Marjan Kolb Age: 69 yrs Sex: Female : 1955 Arrival Date: 06/25/2024 Time: 10:56 Bed 25 Private MD: ED Physician Jose Shah HPI: 06/25 11:28 This 69 yrs old Female presents to ER via Ambulatory with complaints of Abdominal Pain. cp 11:28 The patient presents with abdominal pain that is diffuse. Onset: The symptoms/episode cp began/occurred last week. The symptoms do not radiate. Associated signs and symptoms: Pertinent positives: diarrhea. 11:28 Severity of pain: in the emergency department the pain is unchanged despite home cp interventions. 11:28 The patient has been recently seen by a physician: Dr. Rahman with similar presenting cp complaints, and was sent to the [facility] Emergency Department for further evaluation. Historical: - Allergies: 11:24 ACETAMINOPHEN; ll1 11:24 adhesive tape; ll1 11:24 Azithromycin; ll1 11:24 butorphanol tartrate; ll1 11:24 Fentanyl; ll1 11:24 HYDROCODONE; ll1 11:24 metoclopramide HCl; ll1 11:24 Trimethoprim-Sulfamethoxazole; ll1 - PMHx: 11:24 a-fib; angina pectoris; bowel obstruction (shoulder replacemen); HIV positive; ll1 Migraine; NSTEMI; - PSHx: 11:24 Cholecystectomy; coronary stents; shoulder replacement (NSTE); ll1 - Immunization history:: Adult Immunizations up to date. - Infectious Disease History:: Denies. - Social history:: Smoking status: Patient denies any tobacco usage or history of. ROS: 11:30 Abdomen/GI: Positive for abdominal pain, diarrhea, Negative for constipation, active cp vomiting, 11:30 Eyes: Negative for injury, pain, redness, and discharge, cp 11:30 Constitutional: Negative for body aches, chills, fever, 11:30 Cardiovascular: Negative for chest pain, palpitations, 11:30 Respiratory: Negative for cough, shortness of breath, wheezing, 11:30 Neuro: Negative for altered mental status, dizziness, headache, weakness, 11:30 All other systems are negative, cp Exam: 11:35 Constitutional: The patient appears in no acute distress, alert, awake, non-toxic, well cp developed, well nourished, 11:35 Head/Face: Normocephalic, atraumatic. cp 11:35 Eyes: Periorbital structures: appear normal, Conjunctiva: normal, no exudate, no injection, Sclera: no appreciated abnormality, Lids and lashes: appear normal, bilaterally, 11:35 ENT: External ear(s): are unremarkable, Nose: is normal, Mouth: Lips: moist, Oral mucosa: moist, Posterior pharynx: Airway: no evidence of obstruction, patent, 11:35 Chest/axilla: Inspection: normal, 11:35 Cardiovascular: Rate: normal, Rhythm: regular, Edema: is not appreciated, JVD: is not appreciated, 11:35 Respiratory: the patient does not display signs of respiratory distress, Respirations: normal, no use of accessory muscles, no retractions, labored breathing, is not present, Breath sounds: are clear throughout, no decreased breath sounds, no stridor, no wheezing, 11:35 Abdomen/GI: Inspection: obese Bowel sounds: active, all quadrants, Palpation: soft, in all quadrants, mild abdominal tenderness, in all quadrants, rebound tenderness, is not appreciated, involuntary guarding, is not appreciated, 11:35 Back: CVA tenderness, is absent, 11:35 Neuro: Orientation: to person, place \T\ time. Mentation: is normal, Motor: moves all fours, strength is normal, Vital Signs: 11:28 BP 113 / 64; Pulse 88; Resp 18; Temp 97.9; Pulse Ox 96% ; Weight 79.38 kg; Height 5 ft. ll1 4 in. ; Pain 10/10; 16:00 BP 186 / 113; Pulse 86; Resp 16; Pulse Ox 97% on R/A; jb4 17:40 BP 177 / 96; Pulse 75; Resp 16; Pulse Ox 95% on R/A; jb4 11:28 Body Mass Index 30.04 (79.38 kg, 162.56 cm) ll1 11:28 Pain Scale: Adult ll1 MDM: 11:26 Medical Screening Exam initiated cp 17:55 Data reviewed: vital signs, nurses notes, lab test result(s), radiologic studies, plain cp films, and as a result, I will discharge patient. 17:55 Differential diagnosis: bowel obstruction, diverticulitis, gastritis, non-specific abd cp pain, pancreatitis, Pyelonephritis, Ureterolithiasis, urinary tract infection. I considered the following discharge prescriptions or medication management in the emergency department Medications were administered in the Emergency Department. See MAR. Counseling: I had a detailed discussion with the patient and/or guardian regarding the historical points, exam findings, and any diagnostic results supporting the discharge/admit diagnosis, lab results, radiology results, to return to the emergency department if symptoms worsen or persist or if there are any questions or concerns that arise at home. Response to treatment: the patient's symptoms have mildly improved after treatment, and as a result, I will discharge patient. 06/25 11:27 Order name: CBC with Diff; Complete Time: 17:02 cp 06/25 17:02 Interpretation: RBC 3.53; HGB 9.2; HCT 28.1; MCV 79.6; MCH 26.0; PLT 130; RDW 18.0; cp ADE% 77.3; LYM% 12.9. 06/25 11:27 Order name: CMP; Complete Time: 17:02 cp 06/25 11:27 Order name: Lipase; Complete Time: 17:02 cp 06/25 11:27 Order name: Urinalysis w/ reflexes; Complete Time: 17:02 cp 06/25 15:49 Order name: XRAY Abdomen Acute Series; Complete Time: 17:02 cp 06/25 11:27 Order name: IV Saline Lock; Complete Time: 16:09 cp 06/25 11:27 Order name: Labs collected and sent; Complete Time: 16:09 cp Administered Medications: 15:28 Drug: Dicyclomine IM 20 mg IM once Route: IM; Site: left gluteus; jb4 16:00 Follow up: Response: No adverse reaction; No change in condition jb4 15:28 Drug: Promethazine IM 25 mg IM once Route: IM; Site: left gluteus; jb4 16:00 Follow up: Response: No adverse reaction; Marked relief of symptoms; Nausea is decreasedjb4 17:21 Drug: hydrALAZINE IVP 10 mg IVP once Route: IVP; Site: right hand; jb4 18:00 Follow up: Response: No adverse reaction; Marked relief of symptoms; Blood pressure is jb4 lowered Disposition: 11:31 I was immediately available on-site in the Emergency Department for consultation in the ms3 care of the patient. Disposition Summary: 06/25/24 17:56 Discharge Ordered Notes: Location: Home cp Problem: an ongoing problem cp Symptoms: have improved cp Condition: Stable cp Diagnosis - Abdominal pain, unspecified cp - Essential (primary) hypertension cp Followup: cp - With: Private Physician - When: 2 - 3 days - Reason: Recheck today's complaints Discharge Instructions: - Discharge Summary Sheet cp - Abdominal Pain, Adult cp - Hypertension, Adult cp Forms: - Medication Reconciliation Form cp - Antibiotic Education cp - Prescription Opioid Use cp - Patient Portal Instructions cp - Leadership Thank You Letter cp Signatures: Dispatcher [employer] EDMS Justus Neil PA PA cp Mode Bhatt RN RN jb4 Yanira De Jesus RN RN ll1 Jose Shah DO DO ms3 Corrections: (The following items were deleted from the chart) 06/26 12:09 06/25 11:30 Abdomen/GI: Positive for abdominal pain, Negative for diarrhea, cp constipation, cp
--- NOTE | 2024-06-25 17:57 | ER ---
Nurse's Notes [facility] Name: Marjan Kolb Age: 69 yrs Sex: Female : 1955 Arrival Date: 06/25/2024 Time: 10:56 Bed 25 Private MD: Diagnosis: Abdominal pain, unspecified;Essential (primary) hypertension Presentation: 06/25 11:24 Chief complaint: Patient states: Chronic abdominal pain since last . Sent in ll1 for evaluation by Dr. Rahman. 4th visit for same abdominal pains this past week. Coronavirus screen: Client denies travel out of the [place] in the last 14 days. At this time, the client does not indicate any symptoms associated with coronavirus-19. Ebola Screen: Patient denies travel to an Ebola-affected area in the 21 days before illness onset. Initial Sepsis Screen: Does the patient meet any 2 criteria? No. Patient's initial sepsis screen is negative. Does the patient have a suspected source of infection? No. Patient's initial sepsis screen is negative. Risk Assessment: Do you want to hurt yourself or someone else? Patient reports no desire to harm self or others. 11:24 Method Of Arrival: Ambulatory [facility] 11:24 Acuity: BLAYNE 3 ll1 11:28 Onset of symptoms was June 21, 2024. [facility] Triage Assessment: 11:24 General: Appears uncomfortable, Behavior is calm, cooperative, appropriate for age. ll1 Pain: Complains of pain in abdomen Pain currently is 10 out of 10 on a pain scale. Quality of pain is described as aching. GI: Reports lower abdominal pain, upper abdominal pain. Historical: - Allergies: 11:24 ACETAMINOPHEN; ll1 11:24 adhesive tape; ll1 11:24 Azithromycin; ll1 11:24 butorphanol tartrate; ll1 11:24 Fentanyl; 1 11:24 HYDROCODONE; 1 11:24 metoclopramide HCl; ll1 11:24 Trimethoprim-Sulfamethoxazole; ll1 - PMHx: 11:24 a-fib; angina pectoris; bowel obstruction (shoulder replacemen); HIV positive; ll1 Migraine; NSTEMI; - PSHx: 11:24 Cholecystectomy; coronary stents; shoulder replacement (NSTE); ll1 - Immunization history:: Adult Immunizations up to date. - Infectious Disease History:: Denies. - Social history:: Smoking status: Patient denies any tobacco usage or history of. Screenin:40 [facility] ED Fall Risk Assessment (Adult) History of falling in the last 3 months, jb4 including since admission No falls in past 3 months (0 pts) Confusion or Disorientation No (0 pts) Intoxicated or Sedated No (0 pts) Impaired Gait No (0 pts) Mobility Assist Device Used No (0 pt) Altered Elimination No (0 pt) Score/Fall Risk Level 0 - 2 = Low Risk Oriented to surroundings, Maintained a safe environment. Abuse screen: Denies threats or abuse. Nutritional screening: No deficits noted. Tuberculosis screening: No symptoms or risk factors identified. Assessment: 15:00 Reassessment: Patient appears in no apparent distress at this time. Patient and/or jb4 family updated on plan of care and expected duration. Pain level reassessed. Patient is alert, oriented x 3, equal unlabored respirations, skin warm/dry/pink. 16:04 Reassessment: Pt states " I want a different DrChelsie. Les Neil is not giving me morphine. jb4 Get me Dr. Shah. It in my chart that they have been giving me morphine. I want morphine, the bentyl has not helped. See if Dr. Shah will give me morphine." informed Les Neil and Dr. Alyssa MD of pt request. Dr. Shah states " I am not giving her morphine." Pt notified and states " Well i guess I will try Dr. August." Dr. August informed and states " She has had 2 medical opinions already. I am not giving her morphine." Pt informed of this discussion. Pt states " Okay, well I guess I will keep Jolynn the LES.". 17:57 Reassessment: Patient appears in no apparent distress at this time. Patient and/or jb4 family updated on plan of care and expected duration. Pain level reassessed. Patient is alert, oriented x 3, equal unlabored respirations, skin warm/dry/pink. Vital Signs: 11:28 BP 113 / 64; Pulse 88; Resp 18; Temp 97.9; Pulse Ox 96% ; Weight 79.38 kg; Height 5 ft. ll1 4 in. ; Pain 10/10; 16:00 BP 186 / 113; Pulse 86; Resp 16; Pulse Ox 97% on R/A; jb4 17:40 BP 177 / 96; Pulse 75; Resp 16; Pulse Ox 95% on R/A; jb4 11:28 Body Mass Index 30.04 (79.38 kg, 162.56 cm) ll1 11:28 Pain Scale: Adult ll1 ED Course: 10:58 Patient arrived in ED. im 10:59 Justus Neil PA is PHCP. cp 10:59 Jose Shah DO is Attending Physician. cp 11:24 Arm band placed on. ll1 11:25 Triage completed. ll1 13:42 Jesica Ramos, ASHLEY is Primary Nurse. jl7 15:00 Patient has correct armband on for positive identification. Bed in low position. Call jb4 light in reach. Side rails up X 1. Provided Education on: plan of care. 15:47 Initial lab(s) drawn, by me, sent to lab. Urine collected: clean catch specimen, clear, jb4 Amount Voided: 80mL. Inserted saline lock: 24 gauge in right hand, using aseptic technique. Blood collected. 16:18 XRAY Abdomen Acute Series In Process Unspecified. EDMS 17:59 No provider procedures requiring assistance completed. IV discontinued, intact, jb4 bleeding controlled, No redness/swelling at site. Pressure dressing applied. Administered Medications: 15:28 Drug: Dicyclomine IM 20 mg IM once Route: IM; Site: left gluteus; jb4 16:00 Follow up: Response: No adverse reaction; No change in condition jb4 15:28 Drug: Promethazine IM 25 mg IM once Route: IM; Site: left gluteus; jb4 16:00 Follow up: Response: No adverse reaction; Marked relief of symptoms; Nausea is decreasedjb4 17:21 Drug: hydrALAZINE IVP 10 mg IVP once Route: IVP; Site: right hand; jb4 18:00 Follow up: Response: No adverse reaction; Marked relief of symptoms; Blood pressure is jb4 lowered Medication: 17:40 VIS not applicable for this client. jb4 Outcome: 17:56 Discharge ordered by . cp 17:59 Discharged to home ambulatory, jb4 17:59 Condition: stable 17:59 Discharge instructions given to Pt left prior to receiving instructions 18:00 Patient left the ED. jb4 Signatures: Dispatcher [employer] EDMS Justus Neil PA PA cp Bryson, James RN RN jb4 Jesica Ramos RN RN jl7 Yanira De Jesus RN RN ll1 Luzmaria Person Corrections: (The following items were deleted from the chart) 11:29 11:24 Chief complaint: Patient states: Chronic abdominal pain. Sent in for evaluation ll1 by Dr. Rahman ll1 16:54 16:53 BP 186 / 113; Pulse 86bpm; Resp 16bpm; Pulse Ox 97% RA; jb4 jb4
[2024-06-25 18:22] VITALS: TEMP 97.9
[2024-06-25 18:32] VITALS: BP 177/96; O2SAT 95
== END 2024-06-25 18:00 | disposition home or self-care (01) ==
LOC: ER 10:56
DX: R10.9 Unspecified abdominal pain (principal); I10 Essential (primary) hypertension; R19.7 Diarrhea, unspecified; Z21 Asymptomatic human immunodeficiency virus [HIV] infection status; Z95.818 Presence of other cardiac implants and grafts
CPT/HCPCS: 85025; 36415; 81003; 83690; 80053; 74022; J2550; J0360; J0500

== ENCOUNTER 2024-06-27 06:19 | Emergency (ER) | payer OTHER ==
--- NOTE | 2024-06-27 06:49 | EDPHYS ---
Physician Documentation [facility] Name: Marjan Kolb Age: 69 yrs Sex: Female : 1955 Arrival Date: 06/27/2024 Time: 06:19 Bed 3 Private MD: ED Physician Dion Randhawa HPI: 06/27 06:28 This 69 yrs old Female presents to ER via Unassigned with complaints of FAST sp4 HEART RATE. 22:08 69-year-old female presents with elevated levels of anxiety. Patient has sp4 history of atrial fibrillation, angina, obstructed bowel, HIV, migraine, Patient is well-known to me from multiple prior visits. Patient reports elevated anxiety levels secondary to the recent of her . . Historical: - Allergies: 06:41 ACETAMINOPHEN; lg3 06:41 adhesive tape; lg3 06:41 Azithromycin; lg3 06:41 butorphanol tartrate; lg3 06:41 Fentanyl; lg3 06:41 HYDROCODONE; lg3 06:41 metoclopramide HCl; lg3 06:41 Trimethoprim-Sulfamethoxazole; lg3 - PMHx: 06:41 a-fib; angina pectoris; bowel obstruction (shoulder replacemen); HIV positive; lg3 Migraine; NSTEMI; - PSHx: 06:41 Cholecystectomy; coronary stents; shoulder replacement (NSTE); lg3 - Immunization history:: Adult Immunizations up to date. - Infectious Disease History:: Denies. - Social history:: Smoking status: Patient denies any tobacco usage or history of. Patient/guardian denies using alcohol, street drugs. - Family history:: not pertinent. ROS: 22:08 Constitutional: Negative for fever, chills, and weight loss, positive for anxiety sp4 22:08 All other systems are negative, Exam: 22:08 Constitutional: This is a well developed, who is awake, alert, and in no acute sp4 distress. Has signs of physical deconditioning Head/Face: Normocephalic, atraumatic. Eyes: Pupils equal round and reactive to light, extra-ocular motions intact. Lids and lashes normal. Conjunctiva and sclera are not injected. Cornea within normal limits. Periorbital areas with no swelling, redness, or edema. ENT: Nares patent. No nasal discharge, no septal abnormalities noted. Tympanic membranes are normal and external auditory canals are clear. Oropharynx with no redness, swelling, or masses, exudates, or evidence of obstruction, uvula midline. Mucous membranes moist. Neck: Trachea midline, no thyromegaly or masses palpated, and no cervical lymphadenopathy. Supple, full range of motion without nuchal rigidity, or vertebral point tenderness. Chest/axilla: Normal chest wall appearance and motion. Nontender with no deformity. No lesions are appreciated. Cardiovascular: Regular rate and rhythm with a normal S1 and S2. No gallops, murmurs, or rubs. Normal PMI, no JVD. No pulse deficits. Respiratory: Lungs have equal breath sounds bilaterally, clear to auscultation and percussion. No rales, rhonchi or wheezes noted. No increased work of breathing, no retractions or nasal flaring. Abdomen/GI: Soft, with normal bowel sounds. No distension or tympany. No guarding or rebound. No evidence of tenderness throughout. Back: No spinal tenderness. No costovertebral tenderness. Skin: Warm, dry with normal turgor. Normal color with no rashes, no lesions, and no evidence of cellulitis. MS/ Extremity: Pulses equal, no cyanosis. Neurovascular intact. Full, normal range of motion. Neuro: Awake and alert, GCS 15, oriented to person, place, time, and situation. Cranial nerves II-XII grossly intact. Motor strength 5/5 in all extremities. Sensory grossly intact. Psych: Awake, alert, with orientation to person, place and time. Behavior, mood, and affect are within normal limits Vital Signs: 06:36 BP 169 / 101; Pulse 83; Resp 17; Temp 98.6(O); Pulse Ox 100% on NC; FiO2 3 %; vk 06:57 BP 158 / 85; Pulse 81; Resp 17; Temp 98.6; Pulse Ox 100% on 3 lpm NC; Pain 0/10; bm8 06:57 Pain Scale: Adult bm8 [place] Coma Score: 06:57 Eye Response: spontaneous(4). Motor Response: obeys commands(6). Verbal Response: bm8 oriented(5). Total: 15. 22:08 Eye Response: spontaneous(4). Motor Response: obeys commands(6). Verbal Response: sp4 oriented(5). Total: 15. MDM: 06:48 Medical Screening Exam initiated sp4 22:11 Differential Diagnosis altered mental status, flu, Acute anxiety , Acute grief reaction sp4 . Data reviewed: vital signs, nurses notes, EMS record, old medical records. ED course: At this time patient is having acute grief reaction and anxiety secondary to the recent of her . Patient has a pins and not indicated for acute grief reaction. Patient advised nonpharmacologic measures for management of anxiety and acute grief such as walks on a fresh air, exercise and relaxation techniques, also joining online and in person support groups for acute grief reaction and father dealing with anxiety. Patient also advised close visits with her primary care physician and infectious disease physician. At this time stable for discharge home. No further workup indicated. Administered Medications: No medications were administered Disposition Summary: 06/27/24 06:48 Discharge Ordered Notes: Location: Home sp4 Problem: new sp4 Symptoms: have improved sp4 Condition: Stable sp4 Diagnosis - Anxiety disorder, unspecified sp4 - Acute anxiety attack sp4 Followup: sp4 - With: Private Physician - When: 7 - 10 days - Reason: Recheck today's complaints Discharge Instructions: - Discharge Summary Sheet sp4 - Managing Anxiety, Adult sp4 Forms: - Patient Portal Instructions sp4 Signatures: Christine Coley RN RN lg3 Dion Randhawa MD MD sp4
--- NOTE | 2024-06-27 06:49 | ER ---
Nurse's Notes [facility] Name: Marjan Kolb Age: 69 yrs Sex: Female : 1955 Arrival Date: 06/27/2024 Time: 06:19 Bed 3 Private MD: Diagnosis: Anxiety disorder, unspecified;Acute anxiety attack Presentation: 06/27 06:41 Chief complaint: Patient states: i feel like my heart is beating fast. onset 529. lg3 Coronavirus screen: Client denies travel out of the [place] in the last 14 days. At this time, the client does not indicate any symptoms associated with coronavirus-19. Ebola Screen: No symptoms or risks identified at this time. Initial Sepsis Screen: Does the patient meet any 2 criteria? No. Patient's initial sepsis screen is negative. Does the patient have a suspected source of infection? No. Patient's initial sepsis screen is negative. Risk Assessment: Do you want to hurt yourself or someone else? Patient reports no desire to harm self or others. Onset of symptoms was June 27, 2024. 06:41 Method Of Arrival: EMS: [facility] lg3 06:41 Acuity: BLAYNE 5 lg3 Triage Assessment: 06:41 General: Appears in no apparent distress. comfortable, Behavior is calm, cooperative. lg3 Pain: Complains of pain in left breast Pain does not radiate. Pain currently is 3 out of 10 on a pain scale. EENT: No deficits noted. No signs and/or symptoms were reported regarding the EENT system. Neuro: No deficits noted. Gonzalez Agitation-Sedation Scale (RASS): 0 - Alert and Calm Level of Consciousness is awake, alert, obeys commands, Oriented to person, place, time, situation. Cardiovascular: No deficits noted. Capillary refill < 3 seconds Clubbing of nail beds is absent JVD is absent Patient's skin is warm and dry. Respiratory: No deficits noted. Airway is patent Respiratory effort is even, unlabored, Respiratory pattern is regular, symmetrical. GI: No deficits noted. No signs and/or symptoms were reported involving the gastrointestinal system. : No signs and/or symptoms were reported regarding the genitourinary system. Derm: No deficits noted. No signs and/or symptoms reported regarding the dermatologic system. Skin is intact, is healthy with good turgor, Skin is dry, Skin is normal, Skin temperature is warm. Musculoskeletal: No deficits noted. No signs and/or symptoms reported regarding the musculoskeletal system. Circulation, motion, and sensation intact. Range of motion: intact in all extremities. Historical: - Allergies: 06:41 ACETAMINOPHEN; lg3 06:41 adhesive tape; lg3 06:41 Azithromycin; lg3 06:41 butorphanol tartrate; lg3 06:41 Fentanyl; lg3 06:41 HYDROCODONE; lg3 06:41 metoclopramide HCl; lg3 06:41 Trimethoprim-Sulfamethoxazole; lg3 - PMHx: 06:41 a-fib; angina pectoris; bowel obstruction (shoulder replacemen); HIV positive; lg3 Migraine; NSTEMI; - PSHx: 06:41 Cholecystectomy; coronary stents; shoulder replacement (NSTE); lg3 - Immunization history:: Adult Immunizations up to date. - Infectious Disease History:: Denies. - Social history:: Smoking status: Patient denies any tobacco usage or history of. Patient/guardian denies using alcohol, street drugs. - Family history:: not pertinent. Screenin:43 [facility] ED Fall Risk Assessment (Adult) History of falling in the last 3 months, lg3 including since admission No falls in past 3 months (0 pts) Confusion or Disorientation No (0 pts) Intoxicated or Sedated No (0 pts) Impaired Gait Yes (1 pt) Mobility Assist Device Used Yes (1 pt) Altered Elimination No (0 pt) Score/Fall Risk Level 0 - 2 = Low Risk Oriented to surroundings, Maintained a safe environment, Educated pt \T\ family on fall prevention, incl call for assistance when getting out of bed, Assessed \T\ reinforced patient's understanding of fall precautions. Abuse screen: Denies threats or abuse. Denies injuries from another. Nutritional screening: No deficits noted. Tuberculosis screening: No symptoms or risk factors identified. Assessment: 06:43 General: see triage assessment. lg3 06:57 Reassessment: Patient appears in no apparent distress at this time. Patient and/or bm8 family updated on plan of care and expected duration. Pain level reassessed. Patient is alert, oriented x 3, equal unlabored respirations, skin warm/dry/pink. Patient denies pain at this time. Patient states feeling better. Patient states symptoms have improved. Pain: Denies pain. Neuro: No deficits noted. Level of Consciousness is awake, alert, obeys commands, Oriented to person, place, time, situation, Appropriate for age. Cardiovascular: Denies chest pain, lightheadedness, shortness of breath, Capillary refill < 3 seconds in bilateral fingers Patient's skin is warm and dry. Respiratory: Breath sounds are clear bilaterally. GI: No signs and/or symptoms were reported involving the gastrointestinal system. : No signs and/or symptoms were reported regarding the genitourinary system. EENT: No signs and/or symptoms were reported regarding the EENT system. Derm: No signs and/or symptoms reported regarding the dermatologic system. Musculoskeletal: No signs and/or symptoms reported regarding the musculoskeletal system. Vital Signs: 06:36 BP 169 / 101; Pulse 83; Resp 17; Temp 98.6(O); Pulse Ox 100% on NC; FiO2 3 %; vk 06:57 BP 158 / 85; Pulse 81; Resp 17; Temp 98.6; Pulse Ox 100% on 3 lpm NC; Pain 0/10; bm8 06:57 Pain Scale: Adult bm8 [place] Coma Score: 06:57 Eye Response: spontaneous(4). Motor Response: obeys commands(6). Verbal Response: bm8 oriented(5). Total: 15. 22:08 Eye Response: spontaneous(4). Motor Response: obeys commands(6). Verbal Response: sp4 oriented(5). Total: 15. ED Course: 06:22 Patient arrived in ED. gm2 06:28 Dion Randhawa MD is Attending Physician. sp4 06:41 Triage completed. lg3 06:41 Arm band placed on right wrist. lg3 06:43 Patient has correct armband on for positive identification. Bed in low position. Call lg3 light in reach. Side rails up X 1. 06:57 Riaz Lafleur, RN is Primary Nurse. bm8 06:57 Provided Education on: post er care. Client placed on continuous cardiac and pulse bm8 oximetry monitoring. NIBP monitoring applied. threat monitoring analyst on. Pulse ox on. NIBP on. Door closed. Noise minimized. Warm blanket given. Pillow given. Verbal reassurance given. Head of bed elevated. 06:57 No provider procedures requiring assistance completed. Patient did not have IV access bm8 during this emergency room visit. Oxygen administration via nasal cannula \T\ 3L/min Response to oxygen therapy: symptoms improved. Administered Medications: No medications were administered Medication: 06:43 VIS not applicable for this client. lg3 Outcome: 06:48 Discharge ordered by . kt4 06:57 Discharged to home via wheelchair, bm8 06:57 Condition: stable 06:57 Discharge instructions given to patient, Instructed on discharge instructions, follow up and referral plans. medication usage, safety practices, Demonstrated understanding of instructions, follow-up care, medications, 07:00 Patient left the ED. bm8 Signatures: Christine Coley, RN RN lg3 Dion Randhawa MD MD sp4 Karyn Philippe gm2 Harmony Ellis Brad, RN RN bm8
[2024-06-27 07:12] VITALS: TEMP 98.6; O2SAT 100
[2024-06-27 07:14] VITALS: BP 158/85
== END 2024-06-27 07:00 | disposition home or self-care (01) ==
LOC: ER 06:19
DX: F41.0 Panic disorder [episodic paroxysmal anxiety] (principal); Z21 Asymptomatic human immunodeficiency virus [HIV] infection status

== ENCOUNTER 2024-06-28 17:30 | Emergency (ER) | payer OTHER ==
--- NOTE | 2024-06-28 18:36 | ER ---
Nurse's Notes [facility] Name: Marjan Kolb Age: 69 yrs Sex: Female : 1955 Arrival Date: 06/28/2024 Time: 17:30 Bed IW5 Private MD: Diagnosis: Abdominal pain, Generalized Presentation: 06/28 17:36 Chief complaint: Patient states: c/o abdominal pain 10/10, with abdominal distention me1 and n/v/d x4 days. Coronavirus screen: Vaccine status: Patient reports receiving the 2nd dose of the covid vaccine. Ebola Screen: No symptoms or risks identified at this time. Initial Sepsis Screen: Does the patient meet any 2 criteria? No. Patient's initial sepsis screen is negative. Does the patient have a suspected source of infection? No. Patient's initial sepsis screen is negative. Risk Assessment: Do you want to hurt yourself or someone else? Patient reports no desire to harm self or others. Onset of symptoms was June 24, 2024. 17:36 Method Of Arrival: Wheelchair me1 17:36 Acuity: BLAYNE 3 me1 Triage Assessment: 17:39 General: Appears uncomfortable, well developed, well nourished, Behavior is me1 cooperative, appropriate for age, crying, Reports abdominal pain. Pain: Complains of pain in abdomen Pain does not radiate. Pain currently is 10 out of 10 on a pain scale. Quality of pain is described as pressure, Pain began 2-3 days ago. Is continuous. EENT: No signs and/or symptoms were reported regarding the EENT system. Neuro: Level of Consciousness is awake, alert, obeys commands, Oriented to person, place, time, situation, Appropriate for age. Cardiovascular: Patient's skin is warm and dry. Respiratory: Airway is patent Trachea midline Respiratory effort is even, unlabored, Respiratory pattern is regular, symmetrical. GI: Reports lower abdominal pain, upper abdominal pain, diarrhea, nausea, vomiting. : No signs and/or symptoms were reported regarding the genitourinary system. Derm: Skin is intact, is healthy with good turgor, Skin is pink, warm \T\ dry. Musculoskeletal: No signs and/or symptoms reported regarding the musculoskeletal system. Historical: - Allergies: 17:39 ACETAMINOPHEN; me1 17:39 adhesive tape; me1 17:39 Azithromycin; me1 17:39 butorphanol tartrate; me1 17:39 Fentanyl; me1 17:39 HYDROCODONE; me1 17:39 metoclopramide HCl; me1 17:39 Trimethoprim-Sulfamethoxazole; me1 - PMHx: 17:39 a-fib; angina pectoris; bowel obstruction (shoulder replacemen); HIV positive; me1 Migraine; NSTEMI; - PSHx: 17:39 Cholecystectomy; coronary stents; shoulder replacement (NSTE); me1 - Immunization history:: Adult Immunizations up to date. - Infectious Disease History:: Denies. - Social history:: Smoking status: Patient/guardian denies using tobacco, but has a distant history of tobacco abuse. Screenin:39 [facility] ED Fall Risk Assessment (Adult) History of falling in the last 3 months, me1 including since admission No falls in past 3 months (0 pts) Confusion or Disorientation No (0 pts) Intoxicated or Sedated No (0 pts) Impaired Gait No (0 pts) Mobility Assist Device Used No (0 pt) Altered Elimination No (0 pt) Score/Fall Risk Level 0 - 2 = Low Risk Maintained a safe environment, Provided non-skid footwear, Hourly rounding (assess needs \T\ fall precautionary measures) done. Abuse screen: Denies threats or abuse. Nutritional screening: No deficits noted. Tuberculosis screening: No symptoms or risk factors identified. Assessment: 17:39 General: See triage assessment.. me1 Vital Signs: 17:36 BP 142 / 82; Pulse 87; Resp 16; Temp 98.3; Pulse Ox 99% ; Weight 90.72 kg; Height 5 ft. me1 4 in. ; Pain 10/10; 17:36 Body Mass Index 34.33 (90.72 kg, 162.56 cm) me1 17:36 Pain Scale: Adult me1 ED Course: 17:34 Patient arrived in ED. al6 17:39 Triage completed. me1 17:39 Patient has correct armband on for positive identification. Provided Education on: POC. me1 Verbalized understanding.. 17:39 No provider procedures requiring assistance completed. Patient did not have IV access me1 during this emergency room visit. 17:40 Arm band placed on Patient placed in an exam room. me1 17:41 Jose Shah DO is Attending Physician. ms3 18:36 Loco Montes MD is Referral Physician. ms3 Administered Medications: 18:59 Not Given (Patient Refused): [id number] mg IVP once; dilute with 10 mL 0.9% NaCl; me1 give over 2 minutes 18:59 Not Given (Patient Refused): [id number] mg IM once me1 Medication: 17:39 VIS not applicable for this client. me1 Outcome: 18:36 Discharge ordered by MD. ms3 19:02 Discharged to home ambulatory, me1 19:02 Condition: stable 19:02 Discharge instructions given to patient, Instructed on discharge instructions, follow up and referral plans. Demonstrated understanding of instructions, follow-up care, 19:02 Patient left the ED. me1 Signatures: Jose Shah DO DO ms3 Shira Solomon, RN RN me1 Emely Burris al6
--- NOTE | 2024-06-28 18:36 | EDPHYS ---
Physician Documentation [facility] Name: Marjan Kolb Age: 69 yrs Sex: Female : 1955 Arrival Date: 06/28/2024 Time: 17:30 Bed IW5 Private MD: ED Physician Jose Shah HPI: 06/28 18:39 This 69 yrs old Female presents to ER via Wheelchair with complaints of Abdominal Pain. ms3 18:39 69-year-old female past medical history of atrial fibrillation, angina pectoris, bowel ms3 obstruction, HIV, migraines presents to the emergency department for abdominal pain that is been ongoing for 1 week. Patient denies any alleviating or inciting factors.. Historical: - Allergies: 17:39 ACETAMINOPHEN; me1 17:39 adhesive tape; me1 17:39 Azithromycin; me1 17:39 butorphanol tartrate; me1 17:39 Fentanyl; me1 17:39 HYDROCODONE; me1 17:39 metoclopramide HCl; me1 17:39 Trimethoprim-Sulfamethoxazole; me1 - PMHx: 17:39 a-fib; angina pectoris; bowel obstruction (shoulder replacemen); HIV positive; me1 Migraine; NSTEMI; - PSHx: 17:39 Cholecystectomy; coronary stents; shoulder replacement (NSTE); me1 - Immunization history:: Adult Immunizations up to date. - Infectious Disease History:: Denies. - Social history:: Smoking status: Patient/guardian denies using tobacco, but has a distant history of tobacco abuse. ROS: 18:36 Constitutional: Negative for fever, and chills. Cardiovascular: Negative for chest ms3 pain, and palpitations. Respiratory: Negative for shortness of breath, cough, wheezing, and pleuritic chest pain, MS/Extremity: Negative for injury and deformity, 18:36 Abdomen/GI: Positive for abdominal pain, Exam: 18:36 Constitutional: This is a well developed, well nourished patient who is awake, alert, ms3 and in no acute distress. Cardiovascular: Regular rate and rhythm with a normal S1 and S2. No gallops, murmurs, or rubs. Normal PMI, no JVD. No pulse deficits. Respiratory: Lungs have equal breath sounds bilaterally, clear to auscultation and percussion. No rales, rhonchi or wheezes noted. No increased work of breathing, no retractions or nasal flaring. Abdomen/GI: Soft, non-tender, with normal bowel sounds. No distension or tympany. No guarding or rebound. No evidence of tenderness throughout. Skin: Warm, dry with normal turgor. Normal color with no rashes, no lesions, and no evidence of cellulitis. Vital Signs: 17:36 BP 142 / 82; Pulse 87; Resp 16; Temp 98.3; Pulse Ox 99% ; Weight 90.72 kg; Height 5 ft. me1 4 in. ; Pain 10/10; 17:36 Body Mass Index 34.33 (90.72 kg, 162.56 cm) me1 17:36 Pain Scale: Adult me1 MDM: 17:51 Medical Screening Exam initiated ms3 18:36 Differential diagnosis: diverticulitis, gastritis, non-specific abd pain. Data ms3 reviewed: vital signs, nurses notes, and as a result, I will discharge patient. Counseling: I had a detailed discussion with the patient and/or guardian regarding the historical points, exam findings, and any diagnostic results supporting the discharge/admit diagnosis, the need for outpatient follow up, to return to the emergency department if symptoms worsen or persist or if there are any questions or concerns that arise at home. Special discussion: Based on the patient's Hx, exam, and Dx evaluation, there is no indication for emergent surgery or inpatient Tx. It is understood by the patient/guardian that if the Sx's persist or worsen they need to return immediately for re-evaluation. ED course: Patient has decided to refuse labs and medication. At this time, I reevaluated the patient and discussed the following: a. Capacity: The patient has the capacity to communicate, understand information, and logically process the decision making process. b. Communication of risks: At bedside, I discussed potential risks, outcomes, and alternative approaches in a patientcentered manner. The patient was informed of the specific risks of undiagnosed problem, including worsening condition, disability, and . The patient understands that they are welcome to return at any time to complete the workup. Patient is discharged from my care with informed refusal.. 06/28 17:50 Order name: IV Saline Lock ms3 06/28 17:50 Order name: Labs collected and sent ms3 Administered Medications: 18:59 Not Given (Patient Refused): [id number] mg IVP once; dilute with 10 mL 0.9% NaCl; me1 give over 2 minutes 18:59 Not Given (Patient Refused): [id number] mg IM once me1 Disposition Summary: 06/28/24 18:36 Discharge Ordered Notes: Location: Home ms3 Condition: Stable ms3 Diagnosis - Abdominal pain, Generalized ms3 Followup: ms3 - With: Loco Montes MD - When: 2 - 3 days - Reason: Recheck today's complaints Discharge Instructions: - Discharge Summary Sheet ms3 - Abdominal Pain, Adult ms3 Forms: - Medication Reconciliation Form ms3 - Antibiotic Education ms3 - Prescription Opioid Use ms3 - Patient Portal Instructions ms3 - Leadership Thank You Letter ms3 Signatures: Dispatcher [employer] EDJose Anne, DO ms3 Shira Solomon RN RN me1 Corrections: (The following items were deleted from the chart) 17:51 17:51 CBC+H.LAB.BRZ ordered. EDMS EDMS 17:51 17:51 COMPREHENSIVE METABOLIC PANEL+C.LAB.BRZ ordered. EDMS EDMS 17:51 17:51 LIPASE+C.LAB.BRZ ordered. EDMS EDMS 17:51 17:51 Urinalysis+U.LAB.BRZ ordered. EDMS EDMS
[2024-06-28 19:08] VITALS: BP 142/82; TEMP 98.3; O2SAT 99
== END 2024-06-28 19:02 | disposition home or self-care (01) ==
LOC: ER 17:30
DX: R10.84 Generalized abdominal pain (principal); Z21 Asymptomatic human immunodeficiency virus [HIV] infection status; I48.91 Unspecified atrial fibrillation; I25.2 Old myocardial infarction; Z95.818 Presence of other cardiac implants and grafts
CPT/HCPCS: 99282

== ENCOUNTER 2024-07-02 15:02 | Emergency (ER) | payer OTHER ==
[2024-07-02] MEDS ORDERED: NA CHLORIDE 0.9% 1,000 ML ONE (16:09)
[2024-07-02] MEDS ORDERED: droPERidol 5 MG/2 ML VIAL ONE (16:09)
[2024-07-02] MEDS ORDERED: DIPHENHYDRAMINE 50 MG/ML VIAL ONE (16:09)
[2024-07-02 16:15] LABS: Absolute Eosinophils 0.1 K/uL (0-0.5); Absolute Lymphocytes (CBC) 0.6 K/uL (0.7-4.9); Absolute Monocytes 0.5 K/uL (0.1-1.3); Absolute Neutrophil 4.2 K/uL (1.8-8.0); Basophils % 0.2 % (0-1.3); Hematocrit 30.1 % (36.0-45.0); Hemoglobin 9.4 g/dL (12.0-15.0); Lymphocytes % 10.7 % (15.3-44.8); MCH 25.8 pg (27.0-35.0); MCHC 31.1 g/dL (32.0-36.0); MCV 83.1 fL (80-100); MPV 7.3 fL (7.6-11.3); Monocytes % 9.7 % (3.3-12.3); Neutrophils % 78.4 % (41.7-73.7); Nucleated Red Blood Cells % 0.1 % (0-0); Platelets 114 thou/uL (152-406); RBC Red Blood Cell Count 3.63 M/uL (3.86-4.86); Red Cell Distribution Width 21.9 % (12.1-15.2)
[2024-07-02 16:16] LABS: Anisocytosis 1+; Blood Morphology Comment NOTED (NOT SEEN); Platelet Estimate DECR; Specific Gravity 1.027 (1.005-1.030); Urine Bacteria <20 /HPF (<20); Urine Bilirubin NEGATIVE (Negative); Urine Blood Negative (Negative); Urine Clarity Extremely Turbid (Clear); Urine Color Yellow (Yellow); Urine Crystals Unidentified Few /HPF (None Seen); Urine Culture Reflex Order REFLEXED; Urine Glucose NEGATIVE (Negative); Urine Ketones NEGATIVE (Negative); Urine Microscopic Reflex YN ORDER UMIC; Urine Mucus Slight /HPF (None Seen); Urine Nitrite NEGATIVE (Negative); Urine Protein 1+ (Negative); Urine Urobilinogen Normal (Normal); Urine WBC Clump Rare /HPF (None Seen); Urine Yeast (Budding) Trace /HPF (None Seen); White Blood Cell Scan OK (OK)
[2024-07-02 16:29] LABS: Albumin 3.1 g/dL (3.4-5.0); Albumin/Globulin Ratio 0.8 (1.1-1.8); Anion Gap 6.5 mEq/L (5.0-15.0); Bilirubin Total 0.4 mg/dL (0.2-1.0); Globulin 3.8 g/dL (2.3-3.5); Potassium 3.5 mEq/L (3.5-5.1); Protein, Total 6.9 g/dL (6.4-8.2)
[2024-07-02] MEDS ORDERED: METHYLPREDNISOLONE 40 MG INJ ONE (16:51)
[2024-07-02] MEDS ORDERED: IPRATROPIUM BROM 0.5MG/2.5ML ONE (16:51)
[2024-07-02] MEDS ORDERED: ALBUTEROL 2.5 MG/3 ML NEB SOL ONE (16:51)
--- NOTE | 2024-07-02 17:32 | ER ---
Nurse's Notes [facility] Name: Marjan Kolb Age: 69 yrs Sex: Female : 1955 Arrival Date: 07/02/2024 Time: 15:02 Bed 26 Private MD: Diagnosis: Facial swelling;Upper abdominal pain, unspecified;Shortness of breath Presentation: 07/02 15:07 Chief complaint: EMS states: toned out for sob and facial swellling. 95% on room air. me1 C/o abdominal pain that is 9/10 pressure. Coronavirus screen: Vaccine status:. Ebola Screen: No symptoms or risks identified at this time. Initial Sepsis Screen: Does the patient meet any 2 criteria? No. Patient's initial sepsis screen is negative. Does the patient have a suspected source of infection? No. Patient's initial sepsis screen is negative. Risk Assessment: Do you want to hurt yourself or someone else? Patient reports no desire to harm self or others. 15:07 Method Of Arrival: EMS: [facility] me1 15:07 Acuity: BLAYNE 3 me1 15:07 Onset of symptoms was July 02, 2024 at 07:00. me1 Historical: - Allergies: 15:09 ACETAMINOPHEN; me1 15:09 adhesive tape; me1 15:09 Azithromycin; me1 15:09 butorphanol tartrate; me1 15:09 Fentanyl; me1 15:09 HYDROCODONE; me1 15:09 metoclopramide HCl; me1 15:09 Trimethoprim-Sulfamethoxazole; me1 - PMHx: 15:09 a-fib; angina pectoris; bowel obstruction (shoulder replacemen); HIV positive; me1 Migraine; NSTEMI; - PSHx: 15:09 coronary stents; Cholecystectomy; shoulder replacement (NSTE); me1 - Immunization history:: Adult Immunizations up to date. - Infectious Disease History:: Denies. - Social history:: Smoking status: Patient/guardian denies using tobacco. Screenin:10 [facility] ED Fall Risk Assessment (Adult) History of falling in the last 3 months, jb4 including since admission No falls in past 3 months (0 pts) Confusion or Disorientation No (0 pts) Intoxicated or Sedated No (0 pts) Impaired Gait Yes (1 pt) Mobility Assist Device Used No (0 pt) Altered Elimination No (0 pt) Score/Fall Risk Level 0 - 2 = Low Risk Oriented to surroundings, Maintained a safe environment. Abuse screen: Denies threats or abuse. Nutritional screening: No deficits noted. Tuberculosis screening: No symptoms or risk factors identified. Assessment: 15:10 General: Appears in no apparent distress. uncomfortable, Behavior is calm, cooperative, jb4 appropriate for age. Pain: Complains of pain in right upper quadrant and left upper quadrant Pain does not radiate. Pain currently is 8 out of 10 on a pain scale. Neuro: Level of Consciousness is awake, alert, obeys commands, Oriented to person, place, time, situation. Cardiovascular: Patient's skin is warm and dry. Respiratory: Airway is patent Respiratory effort is even, unlabored, Respiratory pattern is regular, symmetrical. GI: Abdomen is non-distended, obese. Derm: Skin is intact, Skin is pink, warm \T\ dry. swelling around the eyes. Musculoskeletal: Circulation, motion, and sensation intact. Range of motion: intact in all extremities. 16:15 Reassessment: Patient appears in no apparent distress at this time. Patient and/or jb4 family updated on plan of care and expected duration. Pain level reassessed. Patient is alert, oriented x 3, equal unlabored respirations, skin warm/dry/pink. 17:00 Reassessment: Patient appears in no apparent distress at this time. Patient and/or jb4 family updated on plan of care and expected duration. Pain level reassessed. Patient is alert, oriented x 3, equal unlabored respirations, skin warm/dry/pink. Pt requesting to go home, provider notified. D/c pending X-ray results Patient states feeling better. 18:21 Reassessment: Patient appears in no apparent distress at this time. Patient and/or jb4 family updated on plan of care and expected duration. Pain level reassessed. Patient is alert, oriented x 3, equal unlabored respirations, skin warm/dry/pink. Pt d/c'ed by ASHLEY Roper. Vital Signs: 15:07 BP 149 / 92; Pulse 80; Resp 17; Temp 98.3; Pulse Ox 96% ; Weight 90.26 kg; Height 5 ft. me1 4 in. ; Pain 9/10; 16:30 BP 141 / 79; Pulse 81; Resp 20; Pulse Ox 100% on 2 lpm NC; jb4 15:07 Body Mass Index 34.16 (90.26 kg, 162.56 cm) me1 15:07 Pain Scale: Adult me1 ED Course: 15:07 Patient arrived in ED. sb4 15:07 Daysi Mendez PA-C is PHCP. sb4 15:07 Ramon Baker MD is Attending Physician. sb4 15:09 Triage completed. me1 15:09 Arm band placed on Patient placed in an exam room. me1 15:10 Patient has correct armband on for positive identification. Bed in low position. Call jb4 light in reach. Side rails up X 1. Provided Education on: plan of care. 16:04 Initial lab(s) drawn, by me, sent to lab. Inserted saline lock: 24 gauge in right hand, jb4 using aseptic technique. Blood collected. 17:48 Chest Single View XRAY In Process Unspecified. EDMS 18:00 No provider procedures requiring assistance completed. IV discontinued, intact, jb4 bleeding controlled, No redness/swelling at site. Pressure dressing applied. Administered Medications: 16:26 Drug: NS 0.9% IV 1000 ml IV at 1 bolus Per protocol; to be given as a bolus over 60 jb4 minutes Route: IV; Rate: 1 bolus; Site: right hand; 17:45 Follow up: Response: No adverse reaction; IV Status: Completed infusion; IV Intake: jb4 1000ml 16:26 Drug: diphenhydrAMINE IVP 25 mg IVP once Route: IVP; Site: right hand; jb4 18:24 Follow up: Response: No adverse reaction; Marked relief of symptoms jb4 16:26 Drug: Droperidol IVP 2.5 mg IVP once Route: IVP; Site: right hand; jb4 18:23 Follow up: Response: No adverse reaction; Marked relief of symptoms; Pain is decreased jb4 16:59 Drug: DuoNeb Nebulize (3:1) (2.5 mg - 0.5 mg) 3 ml Nebulizer once Route: Nebulizer; jb4 18:23 Follow up: Response: No adverse reaction; Marked relief of symptoms; Wheezing diminishedjb4 16:59 Drug: MethylPrednisoLONE IVP 80 mg IVP once Route: IVP; Site: right hand; jb4 18:23 Follow up: Response: No adverse reaction; Marked relief of symptoms jb4 Medication: 18:21 VIS not applicable for this client. jb4 Intake: 17:45 IV: 1000ml; Total: 1000ml. jb4 Outcome: 17:31 Discharge ordered by . sb4 18:23 Discharged to home via wheelchair, with friend, jb4 18:23 Condition: stable 18:23 Discharge instructions given to patient, Instructed on discharge instructions, follow up and referral plans. Demonstrated understanding of instructions, follow-up care, Pt refused prescriptions when ASHLEY Roper was going over D/c instructions with pt. 18:24 Patient left the ED. jb4 Signatures: Dispatcher [employer] EDMode Seymour RN RN jb4 Daysi Mendez, NEO PAShira Sweeney RN RN me1 Corrections: (The following items were deleted from the chart) 15:09 15:07 Onset of symptoms is unknown. me1 me1 17:00 16:59 BP 141 / 79; Pulse 81bpm; Resp 20bpm; Pulse Ox 100% 2 lpm Nasal Cannula; jb4 jb4
--- NOTE | 2024-07-02 17:32 | EDPHYS ---
Physician Documentation [facility] Name: Marjan Kolb Age: 69 yrs Sex: Female : 1955 Arrival Date: 07/02/2024 Time: 15:02 Bed 26 Private MD: ED Physician Ramon Baker HPI: 07/02 17:05 This 69 yrs old Female presents to ER via EMS with complaints of Shortness Of Breath, sb4 Abdominal Pain. 17:05 Patient reports upper abdominal pain, shortness of breath, and facial swelling. She sb4 states that she has had the abdominal pain for quite some time now and has been seen several times for this. No nausea, vomiting, or diarrhea. No fever or chills. Historical: - Allergies: 15:09 ACETAMINOPHEN; me1 15:09 adhesive tape; me1 15:09 Azithromycin; me1 15:09 butorphanol tartrate; me1 15:09 Fentanyl; me1 15:09 HYDROCODONE; me1 15:09 metoclopramide HCl; me1 15:09 Trimethoprim-Sulfamethoxazole; me1 - PMHx: 15:09 a-fib; angina pectoris; bowel obstruction (shoulder replacemen); HIV positive; me1 Migraine; NSTEMI; - PSHx: 15:09 coronary stents; Cholecystectomy; shoulder replacement (NSTE); me1 - Immunization history:: Adult Immunizations up to date. - Infectious Disease History:: Denies. - Social history:: Smoking status: Patient/guardian denies using tobacco. ROS: 17:12 Constitutional: Negative for fever, chills, and weight loss, sb4 17:12 Respiratory: Positive for shortness of breath, 17:12 Abdomen/GI: Positive for abdominal pain, 17:12 All other systems are negative, Exam: 17:12 Eyes: Extra-ocular motions intact. Periorbital areas with no swelling, redness, or sb4 edema. ENT: Mucous membranes moist. Cardiovascular: Regular rate and rhythm with a normal S1 and S2. 17:12 Head/face: Noted is erythema, that is mild, swelling, that is moderate, of the face diffusely, 17:12 Respiratory: Breath sounds: wheezing: expiratory that is mild, is scattered, 17:12 Abdomen/GI: Inspection: abdomen appears normal, Bowel sounds: normal, Palpation: soft, mild abdominal tenderness, in the right upper quadrant and left upper quadrant, Vital Signs: 15:07 BP 149 / 92; Pulse 80; Resp 17; Temp 98.3; Pulse Ox 96% ; Weight 90.26 kg; Height 5 ft. me1 4 in. ; Pain 9/10; 16:30 BP 141 / 79; Pulse 81; Resp 20; Pulse Ox 100% on 2 lpm NC; jb4 15:07 Body Mass Index 34.16 (90.26 kg, 162.56 cm) me1 15:07 Pain Scale: Adult me1 MDM: 15:07 Medical Screening Exam initiated sb4 17:18 Data reviewed: vital signs, nurses notes, EMS record, lab test result(s), radiologic sb4 studies. 17:31 Counseling: I had a detailed discussion with the patient and/or guardian regarding the sb4 historical points, exam findings, and any diagnostic results supporting the discharge/admit diagnosis, lab results, radiology results, the need for outpatient follow up, for definitive care, to return to the emergency department if symptoms worsen or persist or if there are any questions or concerns that arise at home. 07/02 15:11 Order name: CBC with Diff; Complete Time: 16:19 sb4 07/02 15:11 Order name: CMP; Complete Time: 16:29 sb4 07/02 15:11 Order name: Lipase; Complete Time: 16:29 sb4 07/02 15:11 Order name: Urinalysis w/ reflexes; Complete Time: 16:19 sb4 07/02 16:17 Order name: CBC Smear Scan; Complete Time: 16:19 EDMS 07/02 16:19 Order name: Urine Culture EDAL 07/02 17:19 Order name: Chest Single View XRAY sb4 07/02 15:11 Order name: IV Saline Lock; Complete Time: 16:26 sb4 07/02 15:11 Order name: Labs collected and sent; Complete Time: 16:26 sb4 Administered Medications: 16:26 Drug: NS 0.9% IV 1000 ml IV at 1 bolus Per protocol; to be given as a bolus over 60 jb4 minutes Route: IV; Rate: 1 bolus; Site: right hand; 17:45 Follow up: Response: No adverse reaction; IV Status: Completed infusion; IV Intake: jb4 1000ml 16:26 Drug: diphenhydrAMINE IVP 25 mg IVP once Route: IVP; Site: right hand; jb4 18:24 Follow up: Response: No adverse reaction; Marked relief of symptoms jb4 16:26 Drug: Droperidol IVP 2.5 mg IVP once Route: IVP; Site: right hand; jb4 18:23 Follow up: Response: No adverse reaction; Marked relief of symptoms; Pain is decreased jb4 16:59 Drug: DuoNeb Nebulize (3:1) (2.5 mg - 0.5 mg) 3 ml Nebulizer once Route: Nebulizer; jb4 18:23 Follow up: Response: No adverse reaction; Marked relief of symptoms; Wheezing diminishedjb4 16:59 Drug: MethylPrednisoLONE IVP 80 mg IVP once Route: IVP; Site: right hand; jb4 18:23 Follow up: Response: No adverse reaction; Marked relief of symptoms jb4 Disposition: 19:18 Co-signature as Attending Physician, Ramon Baker MD I reviewed the patient's care rn provided by the Advanced Practice Provider and agree with the diagnosis and treatment plan. Disposition Summary: 07/02/24 17:31 Discharge Ordered Notes: Location: Home sb4 Problem: new sb4 Symptoms: have improved sb4 Condition: Stable sb4 Diagnosis - Facial swelling sb4 - Upper abdominal pain, unspecified sb4 - Shortness of breath sb4 Followup: sb4 - With: Emergency Department - When: As needed - Reason: Trouble breathing, Worsening of condition Discharge Instructions: - Discharge Summary Sheet sb4 - Chronic Pain, Adult sb4 - Allergies, Adult, [id number] sb4 Forms: - Patient Portal Instructions sb4 - Leadership Thank You Letter sb4 Prescriptions: - Benadryl 25 mg Oral Capsule - take 1 capsule ORAL route every 6 hours As needed; 30 tablet; Refills: 0, sb4 Product Selection Permitted - Pepcid 20 mg Oral Tablet - take 1 tablet ORAL route every 12 hours for 5 days; 10 tablet; Refills: 0, sb4 Product Selection Permitted - Prednisone 20 mg Oral Tablet - take 2 tablets ORAL route once daily for 5 days; 10 tablet; Refills: 0, Product sb4 Selection Permitted Signatures: Dispatcher [employer] Ramon Linton MD MD rn Bryson, James, RN RN jb4 Daysi Mendez PA-C PA-C sb4 Eddleman, Shira, RN RN me1
--- NOTE | 2024-07-02 18:41 | RAD REPORT ---
EXAM: Chest Single View HISTORY: DYSPNEA COMPARISON: 05/17/2025 FINDINGS: LUNGS/PLEURA: Diffuse prominence of the pulmonary interstitium. MEDIASTINUM: The mediastinal silhouette is within normal limits. Enlarged pulmonary arteries. CARDIAC: Cardiomegaly. UPPER ABDOMEN: No significant abnormality. BONES: No acute abnormality. Bilateral shoulder athroplasties. LINES/TUBES/OTHER: N/A IMPRESSION: No evidence of acute cardiopulmonary disease.
[2024-07-02 23:05] VITALS: TEMP 98.3
[2024-07-02 23:06] VITALS: BP 141/79; O2SAT 100
== END 2024-07-02 18:24 | disposition home or self-care (01) ==
LOC: ER 15:02
DX: R22.0 Localized swelling, mass and lump, head (principal); R10.10 Upper abdominal pain, unspecified; R06.02 Shortness of breath; Z21 Asymptomatic human immunodeficiency virus [HIV] infection status; Z95.818 Presence of other cardiac implants and grafts
CPT/HCPCS: 87088; 85025; 81001; 87086; 36415; 83690; 80053; 71045; J1200; J7613; J7644; J1790; J7030; J2919; 96361; 96374; 96375; 99285

== ENCOUNTER 2024-10-08 14:26 | Emergency (ER) | payer OTHER ==
--- NOTE | 2024-10-08 15:42 | EDPHYS ---
Physician Documentation [facility] Name: Marjan Kolb Age: 69 yrs Sex: Female : 1955 Arrival Date: 10/08/2024 Time: 14:26 Bed IW1 Private MD: ED Physician Lennie Menon HPI: 10/08 15:38 This 69 yrs old Female presents to ER via Ambulatory with complaints of head gb1 pain. 15:38 69-year-old female with pain at the top of her head where she has a scalp lesion. She gb1 had a lesion biopsied and was told it was concerning for cancer. Dr. Rahman has not told her the results of the biopsy yet.. Historical: - Allergies: 14:53 ACETAMINOPHEN; ap3 14:53 adhesive tape; ap3 14:53 Azithromycin; ap3 14:53 butorphanol tartrate; ap3 14:53 Fentanyl; ap3 14:53 HYDROCODONE; ap3 14:53 metoclopramide HCl; ap3 14:53 Trimethoprim-Sulfamethoxazole; ap3 - PMHx: 14:53 a-fib; angina pectoris; bowel obstruction (shoulder replacemen); HIV positive; ap3 Migraine; NSTEMI; - PSHx: 14:53 Cholecystectomy; coronary stents; shoulder replacement (NSTE); ap3 - Immunization history:: Client reports receiving the 2nd dose of the Covid vaccine. - Infectious Disease History:: Denies. - Social history:: Smoking status: Patient denies any tobacco usage or history of. Exam: 15:38 Constitutional: This is a well developed, well nourished patient who is awake, alert, gb1 and in no acute distress. Head/Face: Patient has a palpable scabbed wound at the top of her head in the parietal region. It is painful to the touch and she does have also hair thinning and loss. Eyes: Pupils equal round and reactive to light, extra-ocular motions intact. Lids and lashes normal. Conjunctiva and sclera are non-icteric and not injected. Cornea within normal limits. Periorbital areas with no swelling, redness, or edema. ENT: Nares patent. No nasal discharge, no septal abnormalities noted. Tympanic membranes are normal and external auditory canals are clear. Oropharynx with no redness, swelling, or masses, exudates, or evidence of obstruction, uvula midline. Mucous membranes moist. Neck: Trachea midline, no thyromegaly or masses palpated, and no cervical lymphadenopathy. Supple, full range of motion without nuchal rigidity, or vertebral point tenderness. No Meningismus. Chest/axilla: Normal chest wall appearance and motion. Nontender with no deformity. No lesions are appreciated. Cardiovascular: Regular rate and rhythm with a normal S1 and S2. No gallops, murmurs, or rubs. Normal PMI, no JVD. No pulse deficits. Respiratory: Lungs have equal breath sounds bilaterally, clear to auscultation and percussion. No rales, rhonchi or wheezes noted. No increased work of breathing, no retractions or nasal flaring. Abdomen/GI: Soft, non-tender, with normal bowel sounds. No distension or tympany. No guarding or rebound. No evidence of tenderness throughout. Skin: Warm, dry with normal turgor. Normal color with no rashes, no lesions, and no evidence of cellulitis. MS/ Extremity: Pulses equal, no cyanosis. Neurovascular intact. Full, normal range of motion. Vital Signs: 14:51 BP 181 / 101; Pulse 68; Resp 19; Temp 98.3; Pulse Ox 94% on R/A; Weight 78.93 kg; Pain ap3 10/10; 14:51 Pain Scale: Adult ap3 MDM: 15:03 Medical Screening Exam initiated gb1 15:38 Data reviewed: vital signs, nurses notes. ED course: 69-year-old female with a parietal gb1 scalp lesion concerning for basal cell versus squamous cell carcinoma. Patient has a biopsy that is pending of the lesion by Dr. Rahman. Patient is requesting IV narcotics which I did advise her that that would not be indicated for her pain she is refusing any other pain medicine by mouth. I will discharge her home and recommend NSAIDs for pain management for pain management consultation. Patient does have multiple drug allergies.. Administered Medications: No medications were administered Disposition Summary: 10/08/24 15:41 Discharge Ordered Notes: Location: Home gb1 Problem: an ongoing problem gb1 Symptoms: are unchanged gb1 Condition: Stable gb1 Diagnosis - Other skin changes gb1 Followup: gb1 - With: Emergency Department - When: - Reason: Re-evaluation by your physician Discharge Instructions: - Discharge Summary Sheet gb1 - Preventing Skin Cancer, Adult gb1 Forms: - Medication Reconciliation Form gb1 - Antibiotic Education gb1 - Prescription Opioid Use gb1 - Patient Portal Instructions gb1 - Leadership Thank You Letter gb1 Signatures: Danielle Arango, RN RN ap3 SinanLennie MD MD gb1
--- NOTE | 2024-10-08 15:42 | ER ---
Nurse's Notes [facility] Name: Marjan Kolb Age: 69 yrs Sex: Female : 1955 Arrival Date: 10/08/2024 Time: 14:26 Bed IW1 Private MD: Diagnosis: Other skin changes Presentation: 10/08 14:51 Chief complaint: Patient states: she has cancer on the top of her head, and she has not ap3 been able to follow up with dermatology or oncology. patient reports pain as a 10/10 on the pain scale at this time. Coronavirus screen: At this time, the client does not indicate any symptoms associated with coronavirus-19. Ebola Screen: No symptoms or risks identified at this time. Initial Sepsis Screen: Does the patient meet any 2 criteria? No. Patient's initial sepsis screen is negative. Does the patient have a suspected source of infection? No. Patient's initial sepsis screen is negative. Risk Assessment: Do you want to hurt yourself or someone else? Patient reports no desire to harm self or others. Onset of symptoms is unknown. 14:51 Method Of Arrival: Ambulatory ap3 14:51 Acuity: BLAYNE 3 ap3 Triage Assessment: 14:53 General: Appears in no apparent distress. Behavior is calm, cooperative, appropriate ap3 for age. Pain: Complains of pain in top of head Pain currently is 10 out of 10 on a pain scale. Neuro: Level of Consciousness is awake, alert, obeys commands, Oriented to person, place, time, situation. Cardiovascular: Patient's skin is warm and dry. Respiratory: Airway is patent Respiratory effort is even, unlabored, Respiratory pattern is regular, symmetrical. Derm: Wound noted top of head. Historical: - Allergies: 14:53 ACETAMINOPHEN; ap3 14:53 adhesive tape; ap3 14:53 Azithromycin; ap3 14:53 butorphanol tartrate; ap3 14:53 Fentanyl; ap3 14:53 HYDROCODONE; ap3 14:53 metoclopramide HCl; ap3 14:53 Trimethoprim-Sulfamethoxazole; ap3 - PMHx: 14:53 a-fib; angina pectoris; bowel obstruction (shoulder replacemen); HIV positive; ap3 Migraine; NSTEMI; - PSHx: 14:53 Cholecystectomy; coronary stents; shoulder replacement (NSTE); ap3 - Immunization history:: Client reports receiving the 2nd dose of the Covid vaccine. - Infectious Disease History:: Denies. - Social history:: Smoking status: Patient denies any tobacco usage or history of. Screenin:54 Abuse screen: Denies threats or abuse. Nutritional screening: No deficits noted. ap3 Tuberculosis screening: No symptoms or risk factors identified. Vital Signs: 14:51 BP 181 / 101; Pulse 68; Resp 19; Temp 98.3; Pulse Ox 94% on R/A; Weight 78.93 kg; Pain ap3 10/10; 14:51 Pain Scale: Adult ap3 ED Course: 14:29 Patient arrived in ED. im 14:30 Lennie Menon MD is Attending Physician. gb1 14:53 Triage completed. ap3 14:54 Arm band placed on right wrist. ap3 17:06 No provider procedures requiring assistance completed. Patient did not have IV access ss during this emergency room visit. Administered Medications: No medications were administered Outcome: 15:41 Discharge ordered by . gb1 17:06 Discharged to home ambulatory, 17:06 Condition: good 17:06 Discharge instructions given to Pt left prior to receiving discharge papers. 17:09 Patient left the ED. ss Signatures: Sandra Green RN RN Danielle Arango RN RN ap3 Luzmaria Person Lennie Menon MD MD gb1
[2024-10-08 17:31] VITALS: BP 181/101; TEMP 98.3; O2SAT 94
== END 2024-10-08 17:09 | disposition home or self-care (01) ==
LOC: ER 14:26
DX: R23.8 Other skin changes (principal)
CPT/HCPCS: 99282

== ENCOUNTER 2025-01-06 07:50 | Emergency (ER) | payer OTHER ==
--- NOTE | 2025-01-06 08:39 | RAD REPORT ---
EXAMINATION: Head Brain Wo Cont CLINICAL INDICATION: Female, 69 years old.fall, dizziness TECHNIQUE: Axial CT images from the skull base to the vertex without intravenous contrast. Coronal an d sagittal reformatted images were created from the data set. One or more of the following dose reduction techniques were used: Automated exposure control, adjustment of the mA and/or kV according to patient size, and/or iterative reconstruction. Unless otherwise specified, incidental findings do not require dedicated imaging follow-up. [id number]. COMPARISON: 01/10/2024 FINDINGS: INTRACRANIAL: No acute intracranial hemorrhage. No acute large vascular territory infarct. No hydroce phalus. No mass effect or midline shift. Moderate chronic small vessel ischemic changes.Mild cerebral atrophy. VASCULATURE: No visualized abnormalities in the arteries or dural venous sinuses. SCALP/SKULL: No calvarial fracture identified. No acute soft tissue abnormality. SINUSES: The visualized paranasal sinuses are mostly clear. No significant mastoid fluid. IMPRESSION: No acute intracranial abnormality.
--- NOTE | 2025-01-06 08:47 | RAD REPORT ---
EXAM: Chest Abd Pelvis Wo Con CLINICAL INDICATION: Female, 69 years old fall x 3, back pain TECHNIQUE: CT chest, abdomen and pelvis was performed, without IV contrast, as per department protoco l. Axial, sagittal and coronal reconstructions were obtained. One or more of the following dose reduction techniques were used: Automated exposure control, adjustment of the mA and/or kV according to the patient size, and/or iterative reconstruction. Unless otherwise specified, incidental findings do not require dedicated imaging follow-up. [id number]. COMPARISON: 10/10/2023 FINDINGS: The lack of intravenous contrast limits the sensitivity of this exam for evaluation of solid visceral organs, vascular structures, and retroperitoneum. ---THORAX--- LOWER NECK AND CHEST WALL: Visualized thyroid gland and soft tissues are normal. MEDIASTINUM AND LYMPH NODES: No mediastinal mass or fluid collection. Normal size mediastinal, hilar, and axillary lymph nodes. THORACIC AORTA: No thoracic aortic aneurysm. PULMONARY ARTERIES: Enlarged main pulmonary arteries could indicate pulmonary artery hypertension. Un able to evaluate for pulmonary emboli due to either protocol or lack of contrast. HEART: Normal heart size. Moderate coronary artery calcifications.No significant pericardial effusion . 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 LUNGS AND AIRWAYS: Airways are clear. No evidence of airspace or interstitial process. Scattered 4 mm and smaller pulmonary nodules noted which are of doubtful significance and do not require follow-up. PLEURA: No pleural effusion. No pneumothorax. ---ABDOMEN/PELVIS--- UPPER GI: Surgical changes at the gastroesophageal junction. LIVER: Mild nodular liver contour. GALLBLADDER/BILE DUCTS: Cholecystectomy. Mild extra-hepatic biliary ductal dilatation is likely relat ed to the post-cholecystectomy state. Consider correlating with LFT's.? PANCREAS: No mass, ductal dilation, or freedom-pancreatic fluid. SPLEEN: Mild splenomegaly. ADRENALS: No adrenal masses. KIDNEYS AND URETERS: No hydronephrosis.Low density and/or too small to characterize renal lesions whi ch are statistically benign.Nonobstructing renal calculi.No ureteral calculi. ABDOMINAL AORTA AND OTHER VESSELS: Moderate atherosclerotic changes without aortic aneurysm. PERITONEUM: No abnormal free fluid. No free air. LYMPH NODES: No pathologic lymphadenopathy. ABDOMINAL WALL: Unremarkable SMALL BOWEL/COLON: Small bowel has normal course and caliber. No colonic wall thickening or pericolon ic inflammatory changes. Moderate formed stool burden. URINARY BLADDER: Underdistended but grossly unremarkable. REPRODUCTIVE ORGANS: No pathologic process. ---COMBINED--- MUSCULOSKELETAL: Bilateral shoulder arthroplasties. No acute fracture. Remote right-sided rib fractur es. ADDITIONAL FINDINGS: None. IMPRESSION: No acute findings within the chest, abdomen, or pelvis. Incidental findings as noted above,
--- NOTE | 2025-01-06 09:07 | RAD REPORT ---
EXAMINATION: Elbow Right 3 View CLINICAL INDICATION: Female, 69 years old. blunt trauma;Pain RIGHT COMPARISON: No prior exam. FINDINGS: No acute fracture. No malalignment/dislocation. No significant focal degenerative change. Other: n/a IMPRESSION: No acute osseous abnormality.
--- NOTE | 2025-01-06 09:32 | EDPHYS ---
Physician Documentation [facility] Name: Marjan Kolb Age: 69 yrs Sex: Female : 1955 Arrival Date: 01/06/2025 Time: 07:50 Bed 13 Private MD: ED Physician Ramon Baker HPI: 01/06 09:28 This 69 yrs old Female presents to ER via Ambulatory with complaints of Fall Injury. rn 09:28 Patient reports fall, got lightheaded and dizzy when standing up out of seated rn position. Reports right elbow pain, mid back pain. Reports has felt lightheaded and dizzy for the last few days. No fever or chills. No infectious symptoms. No chest pain or shortness of breath. No vomiting or diarrhea.. Historical: - Allergies: 08:05 ACETAMINOPHEN; iw 08:05 adhesive tape; iw 08:05 Azithromycin; iw 08:05 butorphanol tartrate; iw 08:05 Fentanyl; iw 08:05 HYDROCODONE; iw 08:05 metoclopramide HCl; iw 08:05 Trimethoprim-Sulfamethoxazole; iw - PMHx: 08:05 angina pectoris; a-fib; bowel obstruction; HIV positive; Migraine; NSTEMI; iw - PSHx: 08:05 coronary stents; Cholecystectomy; shoulder replacement; iw - Immunization history:: Adult Immunizations unknown. - Infectious Disease History:: Denies. - Family history:: not pertinent. - Hospitalizations: : No recent hospitalization is reported. - Social history:: Smoking status: Patient denies any tobacco usage or history of. ROS: 09:28 Constitutional: Negative for fever, chills, and weight loss, Neck: Negative for injury, rn pain, and swelling, Cardiovascular: Negative for chest pain, palpitations, and edema, Respiratory: Negative for shortness of breath, cough, wheezing, and pleuritic chest pain, Abdomen/GI: Negative for abdominal pain, nausea, vomiting, diarrhea, and constipation, Back: Positive for mid back pain MS/Extremity: Positive for right elbow pain Skin: Negative for injury, rash, and discoloration, Neuro: Positive for generalized weakness and malaise Exam: 09:28 Constitutional: This is a well developed, well nourished patient who is awake, alert, rn and in no acute distress. Head/Face: Normocephalic, atraumatic. Neck: No midline cervical tenderness Cardiovascular: Regular rate and rhythm. No pulse deficits. Respiratory: No increased work of breathing, no retractions or nasal flaring. Abdomen/GI: Soft, non-tender Back: No spinal tenderness. No costovertebral tenderness. Full range of motion. MS/ Extremity: Pulses equal, no cyanosis. Neurovascular intact. Full, normal range of motion. Equal circumference. Mild tenderness right elbow Neuro: Awake and alert, GCS 15, oriented to person, place, time, and situation. Cranial nerves II-XII grossly intact. Motor strength 4/5 in all extremities. Sensory grossly intact. Vital Signs: 08:04 BP 122 / 104; Pulse 88; Resp 18; Temp 98.1; Pulse Ox 100% on R/A; Pain 10/10; iw 09:30 BP 136 / 98; Pulse 88; Resp 18; Pulse Ox 100% ; db 08:04 Pain Scale: Adult iw MDM: 07:54 Medical Screening Exam initiated rn 09:30 Differential diagnosis: closed head injury, contusion, fracture, sprain, strain. Data rn reviewed: vital signs, nurses notes, radiologic studies, CT scan, plain films, and as a result, I will discharge patient. Independent interpretation of the following test(s) in the Emergency Department X-Ray: My interpretation is X-ray images right elbow negative for acute fracture or dislocation per my interpretation. CT Scan: My interpretation is CT head images negative for acute hemorrhage per my interpretation. Care significantly affected by the following chronic conditions: Chronic Obstructive Pulmonary Disease. Counseling: I had a detailed discussion with the patient and/or guardian regarding the historical points, exam findings, and any diagnostic results supporting the discharge/admit diagnosis, radiology results, the need for outpatient follow up, to return to the emergency department if symptoms worsen or persist or if there are any questions or concerns that arise at home. Special discussion: I discussed with the patient/guardian in detail that at this point there is no indication for admission to the hospital. It is understood, however, that if the symptoms persist or worsen the patient needs to return immediately for re-evaluation. ED course: No acute findings and imaging for trauma. Patient is sitting up, does not appear dizzy or weak. Nonfocal neuroexam. CT head as well as chest abdomen pelvis negative for acute findings. X-ray right elbow negative for acute fracture. Will discharge home with return instructions. 01/06 08:04 Order name: CT Head Brain wo Cont; Complete Time: 09:11 rn 01/06 08:04 Order name: XRAY Elbow RIGHT 3 view; Complete Time: 09:11 rn 01/06 08:04 Order name: CT Chest Abdomen Pelvis W/O Contrast; Complete Time: 09:11 rn Administered Medications: No medications were administered Disposition Summary: 01/06/25 09:32 Discharge Ordered Notes: Location: Home rn Problem: new rn Symptoms: have improved rn Condition: Stable rn Diagnosis - Fall on same level, unspecified rn - Low back pain rn - Contusion of left back wall of thorax rn - Contusion of lower back and pelvis rn Followup: rn - With: Private Physician - When: As needed - Reason: Recheck today's complaints, Re-evaluation by your physician Discharge Instructions: - Discharge Summary Sheet rn - Contusion rn - Dizziness rn Forms: - Medication Reconciliation Form rn - Antibiotic rn social services - Prescription Opioid Use rn - Patient Portal Instructions rn - Leadership Thank You Letter rn Signatures: Dispatcher [employer] Jacquelin Rios RN Ramno Roman MD MD rn Benton, Danielle, RN RN db Corrections: (The following items were deleted from the chart) 08: 08:04 Chest Abdomen Pelvis Wo Con+CT.RAD.BRZ ordered. EDMS EDMS
--- NOTE | 2025-01-06 09:32 | ER ---
Nurse's Notes [facility] Name: Marjan Kolb Age: 69 yrs Sex: Female : 1955 Arrival Date: 01/06/2025 Time: 07:50 Bed 13 Private MD: Diagnosis: Fall on same level, unspecified;Low back pain;Contusion of left back wall of thorax;Contusion of lower back and pelvis Presentation: 01/06 08:03 Chief complaint: Patient states: I fell three times last night, I was on the floor for iw two hours and no one would help me, states she fell out of her wheelchair , pain to her mid back and right arm. 08:03 Acuity: BLAYNE 3 iw 08:04 Coronavirus screen: At this time, the client does not indicate any symptoms associated iw with coronavirus-19. Ebola Screen: No symptoms or risks identified at this time. Initial Sepsis Screen: Does the patient meet any 2 criteria? No. Patient's initial sepsis screen is negative. Does the patient have a suspected source of infection? No. Patient's initial sepsis screen is negative. Risk Assessment: Do you want to hurt yourself or someone else? Patient reports no desire to harm self or others. Onset of symptoms was January 06, 2025. 08:04 Method Of Arrival: Ambulatory iw Historical: - Allergies: 08:05 ACETAMINOPHEN; iw 08:05 adhesive tape; iw 08:05 Azithromycin; iw 08:05 butorphanol tartrate; iw 08:05 Fentanyl; iw 08:05 HYDROCODONE; iw 08:05 metoclopramide HCl; iw 08:05 Trimethoprim-Sulfamethoxazole; iw - PMHx: 08:05 angina pectoris; a-fib; bowel obstruction; HIV positive; Migraine; NSTEMI; iw - PSHx: 08:05 coronary stents; Cholecystectomy; shoulder replacement; iw - Immunization history:: Adult Immunizations unknown. - Infectious Disease History:: Denies. - Family history:: not pertinent. - Hospitalizations: : No recent hospitalization is reported. - Social history:: Smoking status: Patient denies any tobacco usage or history of. Screenin:17 [facility] ED Fall Risk Assessment (Adult) History of falling in the last 3 months, db including since admission Yes- fall prone (multiple falls) (3 pts) Confusion or Disorientation No (0 pts) Intoxicated or Sedated No (0 pts) Impaired Gait No (0 pts) Mobility Assist Device Used No (0 pt) Altered Elimination No (0 pt) Score/Fall Risk Level 3 or more points = High Risk Oriented to surroundings, Maintained a safe environment, Hourly rounding (assess needs \T\ fall precautionary measures) done. Abuse screen: Denies threats or abuse. Denies injuries from another. Nutritional screening: No deficits noted. Tuberculosis screening: No symptoms or risk factors identified. Assessment: 08:10 Reassessment: Patient appears in no apparent distress at this time. Patient and/or db family updated on plan of care and expected duration. Pain level reassessed. Patient is alert, oriented x 3, equal unlabored respirations, skin warm/dry/pink. General: Appears in no apparent distress. comfortable, Behavior is calm, cooperative. 09:30 Reassessment: Patient appears in no apparent distress at this time. Patient and/or db family updated on plan of care and expected duration. Pain level reassessed. Patient is alert, oriented x 3, equal unlabored respirations, skin warm/dry/pink. General: Appears in no apparent distress. comfortable, Behavior is calm, cooperative. Pain: Complains of pain in back. Neuro: Level of Consciousness is awake, alert, obeys commands, Oriented to person, place, time, situation. Respiratory: Airway is patent Respiratory effort is even, unlabored, Respiratory pattern is regular, symmetrical. Derm: Wound noted face and scalp. Vital Signs: 08:04 BP 122 / 104; Pulse 88; Resp 18; Temp 98.1; Pulse Ox 100% on R/A; Pain 10/10; iw 09:30 BP 136 / 98; Pulse 88; Resp 18; Pulse Ox 100% ; db 08:04 Pain Scale: Adult iw ED Course: 07:54 Patient arrived in ED. ts1 07:54 Ramon Baker MD is Attending Physician. rn 08:04 Triage completed. iw 08:06 Arm band placed on. iw 08:09 Alejandrina Fairchild, ASHLEY is Primary Nurse. db 08:30 CT Head Brain wo Cont In Process Unspecified. EDMS 08:30 CT Chest Abdomen Pelvis W/O Contrast In Process Unspecified. EDMS 08:52 XRAY Elbow RIGHT 3 view In Process Unspecified. EDMS 10:02 Patient has correct armband on for positive identification. Side rails up X 1. Provided db Education on: DISCHARGE AND FOLLOWUP. Pulse ox on. NIBP on. 10:02 No provider procedures requiring assistance completed. Patient did not have IV access db during this emergency room visit. Administered Medications: No medications were administered Medication: 08:34 VIS not applicable for this client. db Outcome: 09:32 Discharge ordered by . rn 10:02 Discharged to home ambulatory, db 10:02 Condition: stable 10:02 Discharge instructions given to patient, Instructed on discharge instructions, follow up and referral plans. 10:03 Patient left the ED. db Signatures: Dispatcher [employer] EDMS Jacquelin Meier, RN Ramon Roman MD MD rn Benton, Danielle, RN RN db Simpson, Tanya, LALA PAS ts1
[2025-01-06 16:05] VITALS: TEMP 98.1; O2SAT 100
[2025-01-06 16:06] VITALS: BP 136/98
== END 2025-01-06 10:03 | disposition home or self-care (01) ==
LOC: ER 07:50
DX: S30.0XXA Contusion of lower back and pelvis, initial encounter (principal); S20.222A Contusion of left back wall of thorax, initial encounter; W18.30XA Fall on same level, unspecified, initial encounter; Z21 Asymptomatic human immunodeficiency virus [HIV] infection status
CPT/HCPCS: 70450; 71250; 74176; 99283

== ENCOUNTER 2025-01-09 20:09 | Emergency (ER) | payer OTHER ==
--- NOTE | 2025-01-10 00:58 | ER ---
Nurse's Notes [facility] Name: Marjan Kolb Age: 69 yrs Sex: Female : 1955 Arrival Date: 01/09/2025 Time: 20:09 Bed 20 Private MD: Diagnosis: Acute full, acute right posterior chest wall pain, Presentation: 01/09 20:20 Chief complaint: Patient states: FELL OFF FROM WHEEL CHAIR 2-3 DAYS AGO. PAIN ON THE ha1 RIGHT SIDE OF RIB CAGE. PAIN WHEN TAKING A DEEP BREATH. 20:20 Coronavirus screen: Client denies travel out of the [place] in the last 14 days. Ebola ha1 Screen: No symptoms or risks identified at this time. Initial Sepsis Screen: Does the patient meet any 2 criteria? No. Patient's initial sepsis screen is negative. Does the patient have a suspected source of infection? No. Patient's initial sepsis screen is negative. Risk Assessment: Do you want to hurt yourself or someone else? Patient reports no desire to harm self or others. Onset of symptoms was January 09, 2025. 20:20 Method Of Arrival: Wheelchair ha1 20:20 Acuity: BLAYNE 3 ha1 Triage Assessment: 20:26 General: Appears uncomfortable, Behavior is cooperative. Pain: Complains of pain in ha1 right lateral posterior chest Pain currently is 9 out of 10 on a pain scale. Quality of pain is described as throbbing. Neuro: Level of Consciousness is awake, alert, obeys commands, Oriented to person, place, time, situation. Cardiovascular: Patient's skin is warm and dry. Respiratory: Airway is patent Respiratory effort is even, unlabored, Respiratory pattern is regular, symmetrical. Historical: - Allergies: 20:26 ACETAMINOPHEN; ha1 20:26 adhesive tape; ha1 20:26 Azithromycin; ha1 20:26 butorphanol tartrate; ha1 20:26 Fentanyl; ha1 20:26 HYDROCODONE; ha1 20:26 metoclopramide HCl; ha1 20:26 Trimethoprim-Sulfamethoxazole; ha1 - PMHx: 20:26 a-fib; angina pectoris; bowel obstruction; HIV positive; Migraine; NSTEMI; ha1 - PSHx: 20:26 Cholecystectomy; coronary stents; shoulder replacement; ha1 - Immunization history:: Adult Immunizations up to date. - Infectious Disease History:: Denies. - Social history:: Smoking status: Patient reports the use of cigarette tobacco products, smokes one-half pack cigarettes per day. - Family history:: not pertinent. Screenin:10 [facility] ED Fall Risk Assessment (Adult) History of falling in the last 3 months, al5 including since admission Yes- single mechanical fall (1 pt) Confusion or Disorientation No (0 pts) Intoxicated or Sedated No (0 pts) Impaired Gait Yes (1 pt) Mobility Assist Device Used Yes (1 pt) Altered Elimination No (0 pt) Score/Fall Risk Level 3 or more points = High Risk Oriented to surroundings, Maintained a safe environment, Hourly rounding (assess needs \T\ fall precautionary measures) done. Abuse screen: Denies threats or abuse. Denies injuries from another. Nutritional screening: No deficits noted. Tuberculosis screening: No symptoms or risk factors identified. Assessment: 21:00 General: Appears in no apparent distress. uncomfortable, Behavior is calm, cooperative. al5 Pain: Complains of pain in right mid back and right lateral posterior chest. Neuro: Level of Consciousness is awake, alert, obeys commands, Oriented to person, place, time, situation. Cardiovascular: Capillary refill < 3 seconds Patient's skin is warm and dry. Respiratory: Airway is patent Respiratory effort is even, unlabored, Respiratory pattern is regular, symmetrical. GI: No signs and/or symptoms were reported involving the gastrointestinal system. : No signs and/or symptoms were reported regarding the genitourinary system. EENT: No signs and/or symptoms were reported regarding the EENT system. Derm: Skin is intact, Skin is normal. Musculoskeletal: Circulation, motion, and sensation intact. Range of motion: intact in all extremities. 21:00 Reassessment: patient states she wants to leave to go to [facility] where they al5 will give her a pain shot and keep her there. educated patient that there are pain medications ordered for her and that further plan of care is up to the doctor once results returned. patient states she is wanting to leave. notified provider, provider given informed discharge. Vital Signs: 20:20 BP 144 / 85; Pulse 82; Resp 19 S; Temp 97.9(T); Pulse Ox 95% on R/A; Weight 73.94 kg; ha1 Height 5 ft. 4 in. ; 20:20 Body Mass Index 27.98 (73.94 kg, 162.56 cm) ha1 [place] Coma Score: 21:20 Eye Response: spontaneous(4). Motor Response: obeys commands(6). Verbal Response: sp4 oriented(5). Total: 15. ED Course: 20:14 Patient arrived in ED. gm2 20:21 Dion Randhawa MD is Attending Physician. sp4 20:26 Triage completed. ha1 21:10 No provider procedures requiring assistance completed. Patient did not have IV access al5 during this emergency room visit. 21:10 Patient has correct armband on for positive identification. Bed in low position. Call al5 light in reach. Side rails up X2. Provided Education on: plan of care. 21:29 Danielle Ram, RN is Primary Nurse. al5 Administered Medications: 21:40 Not Given (Patient Refused): [id number] mg PO once al5 21:40 Not Given (Patient Refused): [id number] mg PO once al5 Medication: 21:10 VIS not applicable for this client. al5 Outcome: 21:11 Discharge ordered by . sp4 21:11 Discharged to home ambulatory, al5 21:11 Condition: unchanged 21:11 Instructed on discharge instructions, 21:39 Patient left the ED. al5 Signatures: Ludivina Ramires RN RN 1 Dion Randhawa MD MD sp4 Karyn Philippe 2 Danielle Ram RN RN al5 Corrections: (The following items were deleted from the chart) 20:28 20:20 Acuity: BLAYNE 4 ha1 ha1
--- NOTE | 2025-01-10 00:58 | EDPHYS ---
Physician Documentation [facility] Name: Marjan Kolb Age: 69 yrs Sex: Female : 1955 Arrival Date: 01/09/2025 Time: 20:09 Bed 20 Private MD: ED Physician Dion Randhawa HPI: 01/09 20:21 This 69 yrs old Female presents to ER via Unassigned with complaints of Back sp4 Pain, Flank Pain. 21:20 69-year-old female presents with complaint of acute fall out of her chair and pain to sp4 the right posterior chest wall. Patient has extensive past medical history of atrial fibrillation, angina, bowel obstruction, HIV, migraine and NSTEMI.. Historical: - Allergies: 20:26 ACETAMINOPHEN; ha1 20:26 adhesive tape; ha1 20:26 Azithromycin; ha1 20:26 butorphanol tartrate; ha1 20:26 Fentanyl; ha1 20:26 HYDROCODONE; ha1 20:26 metoclopramide HCl; ha1 20:26 Trimethoprim-Sulfamethoxazole; ha1 - PMHx: 20:26 a-fib; angina pectoris; bowel obstruction; HIV positive; Migraine; NSTEMI; ha1 - PSHx: 20:26 Cholecystectomy; coronary stents; shoulder replacement; ha1 - Immunization history:: Adult Immunizations up to date. - Infectious Disease History:: Denies. - Social history:: Smoking status: Patient reports the use of cigarette tobacco products, smokes one-half pack cigarettes per day. - Family history:: not pertinent. ROS: 21:20 Constitutional: Negative for fever, chills, and weight loss, positive for at home sp4 positive right posterior chest wall pain. 21:20 All other systems are negative, Exam: 21:20 Constitutional: This is a well developed, well nourished patient who is awake, alert, sp4 chronically ill-appearing but no acute distress. Head/Face: Normocephalic, atraumatic. Eyes: Pupils equal round and reactive to light, extra-ocular motions intact. Lids and lashes normal. Conjunctiva and sclera are not injected. Cornea within normal limits. Periorbital areas with no swelling, redness, or edema. ENT: Nares patent. No nasal discharge, no septal abnormalities noted. Tympanic membranes are normal and external auditory canals are clear. Oropharynx with no redness, swelling, or masses, exudates, or evidence of obstruction, uvula midline. Mucous membranes moist. Neck: Trachea midline, no thyromegaly or masses palpated, and no cervical lymphadenopathy. Supple, full range of motion without nuchal rigidity, or vertebral point tenderness. Chest/axilla: Normal chest wall appearance and motion. Nontender with no deformity. No lesions are appreciated. Cardiovascular: Regular rate and rhythm with a normal S1 and S2. No gallops, murmurs, or rubs. No pulse deficits. Respiratory: Lungs have equal breath sounds bilaterally, clear to auscultation and percussion. No rales, rhonchi or wheezes noted. No increased work of breathing, no retractions or nasal flaring. Abdomen/GI: Soft, with normal bowel sounds. No distension or tympany. No guarding or rebound. No evidence of tenderness throughout. Back: No spinal tenderness. No costovertebral tenderness. Skin: Warm, dry with normal turgor. Normal color with no rashes, no lesions, and no evidence of cellulitis. MS/ Extremity: Pulses equal, no cyanosis. Neurovascular intact. Full, normal range of motion. Neuro: Awake and alert, GCS 15, oriented to person, place, time, and situation. Cranial nerves II-XII grossly intact. Motor strength 5/5 in all extremities. Sensory grossly intact. Psych: Awake, alert, with orientation to person, place and time. Behavior, mood, and affect are within normal limits Vital Signs: 20:20 BP 144 / 85; Pulse 82; Resp 19 S; Temp 97.9(T); Pulse Ox 95% on R/A; Weight 73.94 kg; ha1 Height 5 ft. 4 in. ; 20:20 Body Mass Index 27.98 (73.94 kg, 162.56 cm) ha1 [place] Coma Score: 21:20 Eye Response: spontaneous(4). Motor Response: obeys commands(6). Verbal Response: sp4 oriented(5). Total: 15. MDM: 20:22 Medical Screening Exam initiated sp4 21:20 Differential diagnosis: arthritis, chronic back pain, Fatigue Fracture Joint Injury sp4 Osteoarthritis spinal injury. Data reviewed: vital signs, nurses notes, old medical records. Consideration of Admission/Observation Escalation of care including admission/observation considered. ED course: CT chest abdomen pelvis was ordered without IV contrast to assess for rib fractures or other consequence of traumatic injury. Patient decided to leave ER prior to completion of chest CT. At this time patient is stable for informed discharge.. Administered Medications: 21:40 Not Given (Patient Refused): [id number] mg PO once al5 21:40 Not Given (Patient Refused): [id number] mg PO once al5 Disposition Summary: 01/09/25 21:11 Discharge Ordered Notes: Location: Home sp4 Problem: new sp4 Symptoms: are unchanged sp4 Condition: Stable sp4 Diagnosis - Acute full, acute right posterior chest wall pain, sp4 Followup: sp4 - With: Private Physician - When: 7 - 10 days - Reason: Recheck today's complaints Discharge Instructions: - Discharge Summary Sheet sp4 - Chest Wall Pain, [id number] sp4 Forms: - Patient Portal Instructions sp4 Signatures: Ludivina Ramires RN RN ha1 Dion Randhawa MD MD sp4 Danielle Ram RN al5
[2025-01-10 06:00] VITALS: BP 144/85; TEMP 97.9; O2SAT 95
== END 2025-01-09 21:39 | disposition home or self-care (01) ==
LOC: ER 20:09
DX: R07.89 Other chest pain (principal); W07.XXXA Fall from chair, initial encounter; I25.2 Old myocardial infarction; Z95.818 Presence of other cardiac implants and grafts; Z21 Asymptomatic human immunodeficiency virus [HIV] infection status

== ENCOUNTER 2025-01-15 13:48 | Emergency (ER) | payer OTHER ==
[2025-01-15] MEDS ORDERED: HYDRALAZINE HCL 25 MG TABLET ONE (14:33)
[2025-01-15] MEDS ORDERED: METOPROLOL TAR 50 MG TAB ONE (14:33)
[2025-01-15 14:46] LABS: Absolute Lymphocytes (CBC) 0.7 K/uL (0.7-4.9); Hematocrit 30.2 % (36.0-45.0); Hemoglobin 10.0 g/dL (12.0-15.0); MCH 27.3 pg (27.0-35.0); MCHC 33.2 g/dL (32.0-36.0); MCV 82.4 fL (80-100); MPV 6.3 fL (7.6-11.3); Nucleated RBC Absolute Count 0.0 (0-0); Nucleated Red Blood Cells % 0.0 % (0-0); RBC Red Blood Cell Count 3.67 M/uL (3.86-4.86); White Blood Count 4.80 thou/uL (4.3-10.9)
--- NOTE | 2025-01-15 14:51 | RAD REPORT ---
EXAM: Chest Single View HISTORY: 69 years Female CHEST PAIN COMPARISON: 11/19/2024 FINDINGS: LUNGS/PLEURA: The lungs are clear. No pleural effusions or pneumothorax. No pulmonary edema. CARDIAC/MEDIASTINUM: Moderate cardiomegaly. Enlarged main pulmonary arteries. UPPER ABDOMEN: No significant abnormality. BONES: No acute abnormality. Bilateral shoulder arthroplasties. LINES/TUBES/OTHER: N/A IMPRESSION: No evidence of acute cardiopulmonary disease. Probable pulmonary artery hypertension.
[2025-01-15 14:55] LABS: PT Prothrombin Time 13.6 SECONDS (10-13.0); Protime INR 1.21
[2025-01-15] MEDS ORDERED: IBUPROFEN 200 MG TAB PO ONE (14:59)
[2025-01-15] MEDS ORDERED: IBUPROFEN 400 MG TAB ONE (14:59)
[2025-01-15] MEDS ORDERED: ISOSORBIDE MONO SR 60 MG TAB PO ONE (15:00)
[2025-01-15 15:02] LABS: Urine Microscopic Reflex YN NO UMIC
[2025-01-15 15:08] LABS: AST/SGOT 14 U/L (15-37); Albumin 3.2 g/dL (3.4-5.0); Albumin/Globulin Ratio 0.8 (1.1-1.8); Alkaline Phosphatase 75 U/L (45-117); Anion Gap 8.0 mEq/L (5.0-15.0); BUN Blood Urea Nitrogen 14 mg/dL (7-18); Bilirubin Indirect, Calculated 0.4 mg/dL (0.2-0.8); Globulin 4.2 g/dL (2.3-3.5); Glucose Level 98 mg/dL (74-106); Magnesium 2.2 mg/dL (1.6-2.4); NT PRO-BNP 8346 pg/mL (<125); Potassium 3.0 mEq/L (3.5-5.1); Troponin High Sensitivity 9.9 pg/mL (<58.9)
[2025-01-15 15:15] LABS: Influenza A Ag Negative; Influenza B Ag Negative; SARS-CoV-2 Antigen Rapid Res Negative (Negative)
[2025-01-15 15:31] LABS: ALT/SGPT < 14 U/L (13-56)
--- NOTE | 2025-01-15 15:35 | ER ---
Nurse's Notes [facility] Name: Marjan Kolb Age: 69 yrs Sex: Female : 1955 Arrival Date: 01/15/2025 Time: 13:48 Bed 14 Private MD: Diagnosis: Weakness;Essential (primary) hypertension;Hypokalemia Presentation: 01/15 13:57 Chief complaint: Patient states: 3 falls in 24 hours due to leg weakness. Low back pian ll1 with falls. Coronavirus screen: Client denies travel out of the [place] in the last 14 days. At this time, the client does not indicate any symptoms associated with coronavirus-19. Ebola Screen: Patient denies travel to an Ebola-affected area in the 21 days before illness onset. Initial Sepsis Screen: Does the patient meet any 2 criteria? No. Patient's initial sepsis screen is negative. Does the patient have a suspected source of infection? No. Patient's initial sepsis screen is negative. Risk Assessment: Do you want to hurt yourself or someone else? Patient reports no desire to harm self or others. Onset of symptoms was January 14, 2025. 13:57 Method Of Arrival: Wheelchair ll1 13:57 Acuity: BLAYNE 3 ll1 Historical: - Allergies: 13:58 ACETAMINOPHEN; ll1 13:58 adhesive tape; ll1 13:58 Azithromycin; ll1 13:58 butorphanol tartrate; ll1 13:58 Fentanyl; ll1 13:58 HYDROCODONE; ll1 13:58 metoclopramide HCl; ll1 13:58 Trimethoprim-Sulfamethoxazole; ll1 - PMHx: 13:58 a-fib; angina pectoris; bowel obstruction; HIV positive; Migraine; NSTEMI; ll1 - PSHx: 13:58 Cholecystectomy; coronary stents; shoulder replacement; ll1 - Immunization history:: Adult Immunizations up to date. - Infectious Disease History:: Denies. - Social history:: Smoking status: Patient/guardian denies using tobacco. Screenin:[facility] ED Fall Risk Assessment (Adult) History of falling in the last 3 months, ph including since admission Yes- fall prone (multiple falls) (3 pts) Confusion or Disorientation No (0 pts) Intoxicated or Sedated No (0 pts) Impaired Gait No (0 pts) Mobility Assist Device Used No (0 pt) Altered Elimination No (0 pt) Score/Fall Risk Level 3 or more points = High Risk Oriented to surroundings, Maintained a safe environment, Hourly rounding (assess needs \T\ fall precautionary measures) done, Used ambulatory aids as needed (educated on \T\ assisted with). Abuse screen: Denies threats or abuse. Denies injuries from another. Nutritional screening: No deficits noted. Tuberculosis screening: No symptoms or risk factors identified. Assessment: 14:50 General: Appears in no apparent distress. Behavior is calm, cooperative. Pain: ph Complains of pain in back. Neuro: Level of Consciousness is awake, alert, obeys commands, Oriented to person, place, time, situation. Neuro: Reports weakness in right leg and left leg. Cardiovascular: Capillary refill < 3 seconds in bilateral fingers Patient's skin is warm and dry. Rhythm is sinus rhythm. Respiratory: Airway is patent Respiratory effort is even, unlabored, Respiratory pattern is regular, symmetrical. GI: No signs and/or symptoms were reported involving the gastrointestinal system. Derm: Skin is pink, warm \T\ dry. Vital Signs: 13:57 BP 193 / 118; Pulse 74; Resp 17; Temp 99.4; Pulse Ox 95% ; Weight 78.93 kg; Height 5 ll1 ft. 4 in. ; Pain 10/10; 15:56 BP 181 / 100; Pulse 86; Resp 18; Temp 97.5; Pulse Ox 99% on R/A; ph 13:57 Body Mass Index 29.87 (78.93 kg, 162.56 cm) ll1 13:57 Pain Scale: Adult ll1 ED Course: 13:50 Patient arrived in ED. cj3 13:51 Daysi Mendez PA-C is PHCP. sb4 13:51 Ramon Baker MD is Attending Physician. sb4 13:58 Triage completed. ll1 13:59 Arm band placed on Patient placed in an exam room, on a stretcher. ll1 14:12 Solange Bennett, ASHLEY is Primary Nurse. ph 14:37 XRAY Chest (1 view) In Process Unspecified. EDMS 14:51 Initial lab(s) drawn, by ED staff, sent to lab. Urine collected: clean catch specimen, ph EKG done, by ED staff, reviewed by Daysi Brown PA-C. 14:52 Patient has correct armband on for positive identification. Bed in low position. Call ph light in reach. Side rails up X 1. Pulse ox on. NIBP on. Door closed. Noise minimized. Warm blanket given. 15:56 No provider procedures requiring assistance completed. Patient did not have IV access ph during this emergency room visit. Administered Medications: 14:48 Drug: HydrALAZINE PO 50 mg PO once Route: PO; ph 15:56 Follow up: Response: No adverse reaction; Blood pressure is lowered ph 14:48 Drug: Metoprolol PO 100 mg PO once Route: PO; ph 15:55 Follow up: Response: No adverse reaction; Blood pressure is lowered ph 15:24 Drug: Methocarbamol PO 750 mg PO once Route: PO; af3 15:55 Follow up: Response: No adverse reaction ph 15:25 Drug: isosorbide mononitrate Extended Release 24 hour Tablet 60 mg PO once Route: PO; af3 15:56 Follow up: Response: No adverse reaction; Blood pressure is lowered ph 15:25 Drug: Ibuprofen PO 600 mg PO once Route: PO; af3 15:55 Follow up: Response: No adverse reaction ph 15:55 Not Given (Patient Refused): potassiumeffervescent tablet 50 meq PO once; dissolve in 4 ph ounces of water or juice Medication: 14:52 VIS not applicable for this client. ph Outcome: 15:34 Discharge ordered by MD. rg4 15:57 Discharged to home via wheelchair, with friend, ph 15:57 Condition: good 15:57 Discharge instructions given to patient, Instructed on discharge instructions, follow up and referral plans. Demonstrated understanding of instructions, follow-up care, 15:57 Patient left the ED. ph Signatures: Dispatcher [employer] EDTN Solange Bennett RN RN Yanira Fleming RN RN ll1 Daysi Mendez PAAny PAAgustina Lugo RN RN af3 Viviana Guerrero [facility]
--- NOTE | 2025-01-15 15:35 | EDPHYS ---
Physician Documentation [facility] Name: Marjan Kolb Age: 69 yrs Sex: Female : 1955 Arrival Date: 01/15/2025 Time: 13:48 Bed 14 Private MD: ED Physician Ramon Baker HPI: 01/15 13:58 This 69 yrs old Female presents to ER via Unassigned with complaints of Fall Injury. sb4 13:58 Patient reports generalized weakness for 1 month that has resulted in her falling, has sb4 fallen 3 times today. Denies any injuries from the falls. Does walk with a walker, but still ends up falling. Does report some low back pain but denies any other acute injuries. Denies any head trauma. Denies any URI symptoms, urinary symptoms, nausea, vomiting, diarrhea. Historical: - Allergies: 13:58 ACETAMINOPHEN; ll1 13:58 adhesive tape; ll1 13:58 Azithromycin; ll1 13:58 butorphanol tartrate; ll1 13:58 Fentanyl; ll1 13:58 HYDROCODONE; ll1 13:58 metoclopramide HCl; ll1 13:58 Trimethoprim-Sulfamethoxazole; ll1 - PMHx: 13:58 a-fib; angina pectoris; bowel obstruction; HIV positive; Migraine; NSTEMI; ll1 - PSHx: 13:58 Cholecystectomy; coronary stents; shoulder replacement; ll1 - Immunization history:: Adult Immunizations up to date. - Infectious Disease History:: Denies. - Social history:: Smoking status: Patient/guardian denies using tobacco. ROS: 13:58 Constitutional: Negative for fever, chills, and weight loss, sb4 13:58 Neuro: Positive for weakness, 13:58 All other systems are negative, Exam: 13:58 Constitutional: This is a well developed, well nourished patient who is awake, alert, sb4 and in no acute distress. Head/Face: Normocephalic, atraumatic. Eyes: Extra-ocular motions intact. Periorbital areas with no swelling, redness, or edema. ENT: Mucous membranes moist. Cardiovascular: Regular rate and rhythm with a normal S1 and S2. Respiratory: No increased work of breathing, no retractions or nasal flaring. Abdomen/GI: Soft, non-tender, no distension. Skin: Warm, dry with normal turgor. Normal color with no rashes, no lesions, and no evidence of cellulitis. Vital Signs: 13:57 BP 193 / 118; Pulse 74; Resp 17; Temp 99.4; Pulse Ox 95% ; Weight 78.93 kg; Height 5 ll1 ft. 4 in. ; Pain 10/10; 15:56 BP 181 / 100; Pulse 86; Resp 18; Temp 97.5; Pulse Ox 99% on R/A; ph 13:57 Body Mass Index 29.87 (78.93 kg, 162.56 cm) ll1 13:57 Pain Scale: Adult ll1 MDM: 13:51 Medical Screening Exam initiated sb4 13:58 ED course: Patient was seen at [facility] yesterday for social consult. Case management sb4 was supposed to come see her at her house today to set her up for physical therapy and SNF placement. 15:33 Data reviewed: vital signs, nurses notes, lab test result(s), radiologic studies, and sb4 as a result, I will discharge patient. Care significantly affected by the following chronic conditions: Hypertension, Congestive Heart Failure. Counseling: I had a detailed discussion with the patient and/or guardian regarding the historical points, exam findings, and any diagnostic results supporting the discharge/admit diagnosis, the presence of at least one elevated blood pressure reading (>120/80) during this emergency department visit, radiology results, the need for outpatient follow up, for definitive care, to return to the emergency department if symptoms worsen or persist or if there are any questions or concerns that arise at home. 15:34 Data reviewed: EKG. Counseling: I had a detailed discussion with the patient and/or sb4 guardian regarding lab results. 01/15 13:56 Order name: Basic Metabolic Panel; Complete Time: 15:31 sb4 01/15 13:56 Order name: CBC with Diff; Complete Time: 14:52 sb4 01/15 13:56 Order name: LFT's; Complete Time: 15:31 sb4 01/15 13:56 Order name: Magnesium; Complete Time: 15:31 sb4 01/15 13:56 Order name: NT PRO-BNP; Complete Time: 15:31 sb4 01/15 13:56 Order name: PT-INR; Complete Time: 14:59 sb4 01/15 13:56 Order name: Troponin HS; Complete Time: 15:31 sb4 01/15 13:56 Order name: UA Rfx [place] Cult if indicated; Complete Time: 15:02 sb4 01/15 13:56 Order name: COVID-19 Ag + Flu A+B Ag; Complete Time: 15:17 sb4 01/15 13:56 Order name: XRAY Chest (1 view); Complete Time: 14:52 sb4 01/15 13:56 Order name: Cardiac monitoring; Complete Time: 14:48 sb4 01/15 13:56 Order name: EKG - Nurse/Tech; Complete Time: 14:34 sb4 01/15 13:56 Order name: IV Saline Lock; Complete Time: 14:34 sb4 01/15 13:56 Order name: Labs collected and sent; Complete Time: 14:34 sb4 01/15 13:56 Order name: O2 Per Protocol; Complete Time: 14:48 sb4 01/15 13:56 Order name: O2 Sat Monitoring; Complete Time: 14:48 sb4 EC:28 Rate is 84 beats/min. Rhythm is regular, Sinus tachycardia with 1st degree heart block. sb4 MO interval is prolonged at 226 msec. QRS interval is normal at 108 msec. QT interval is prolonged at 446 msec. No Q waves. T waves are Normal. Clinical impression: NSR w/ Non-specific ST/T Changes and 1st degree heart block. Interpreted by me. Reviewed by me. Administered Medications: 14:48 Drug: HydrALAZINE PO 50 mg PO once Route: PO; ph 15:56 Follow up: Response: No adverse reaction; Blood pressure is lowered ph 14:48 Drug: Metoprolol PO 100 mg PO once Route: PO; ph 15:55 Follow up: Response: No adverse reaction; Blood pressure is lowered ph 15:24 Drug: Methocarbamol PO 750 mg PO once Route: PO; af3 15:55 Follow up: Response: No adverse reaction ph 15:25 Drug: isosorbide mononitrate Extended Release 24 hour Tablet 60 mg PO once Route: PO; af3 15:56 Follow up: Response: No adverse reaction; Blood pressure is lowered ph 15:25 Drug: Ibuprofen PO 600 mg PO once Route: PO; af3 15:55 Follow up: Response: No adverse reaction ph 15:55 Not Given (Patient Refused): potassiumeffervescent tablet 50 meq PO once; dissolve in 4 ph ounces of water or juice Disposition: 18:24 Co-signature as Attending Physician, Ramon Baker MD I reviewed the patient's care rn provided by the Advanced Practice Provider and agree with the diagnosis and treatment plan. Disposition Summary: 01/15/25 15:34 Discharge Ordered Problem: new sb4 Symptoms: have improved sb4 Condition: Stable sb4 Diagnosis - Weakness sb4 - Essential (primary) hypertension sb4 - Hypokalemia sb4 Followup: sb4 - With: Emergency Department - When: As needed - Reason: Trouble breathing, Worsening of condition Discharge Instructions: - Discharge Summary Sheet sb4 - Fall Prevention in the Home, Adult sb4 Forms: - Patient Portal Instructions sb4 - Leadership Thank You Letter sb4 Signatures: Dispatcher [employer] EDRamon Harrison MD MD rn Hall, Patricia RN RN Yanira De Jesus RN RN 1 Daysi Mendez, PA-C PA-C sb4 Agustina Posadas RN RN af3 Corrections: (The following items were deleted from the chart) 13:57 13:57 Chest Single View+[id number] ordered. EDTX EDMS
[2025-01-15] MEDS ORDERED: POTASSIUM 25 MEQ EFFERV TAB ONE (15:39)
[2025-01-15 19:39] VITALS: BP 181/100; TEMP 97.5; O2SAT 99
== END 2025-01-15 15:57 | disposition home or self-care (01) ==
LOC: ER 13:48
DX: R53.1 Weakness (principal); E87.6 Hypokalemia; I10 Essential (primary) hypertension; W18.30XA Fall on same level, unspecified, initial encounter; Z21 Asymptomatic human immunodeficiency virus [HIV] infection status; Z95.818 Presence of other cardiac implants and grafts
CPT/HCPCS: 36415; 71045; 80048; 80076; 81003; 83735; 83880; 84484; 85025; 85610; 87428; 93005; 99284